=== PATIENT | female | born 1945 | race Caucasian/White ===

== ENCOUNTER 2023-08-30 19:57 | Inpatient (IN) | payer MEDICARE, SELFPAY ==
[2023-08-30] VITALS (8 sets, daily range): BP systolic 104–180; BP diastolic 64–80; PULSE 62–90; RESP 14–24; TEMP 36.6–39.1; O2SAT 90–96; BMI 32.3; BMI 33.4
--- NOTE | 2023-08-30 20:05 | ED.FEVER1 ---
HPI - Fever General Chief Complaint: Fever Stated Complaint: Altered Mental Status Time Seen by Provider: 08/30/23 20:04 History of Present Illness HPI Narrative: patient presents from home for confusion. Son called sqad because of her confusion and weakness. Also has urinary incontinence . No known injury. No complaint of pain Related Data Home Medications Medication Instructions Recorded Confirmed allopurinol 300 mg tablet 300 mg PO DAILY 08/30/23 08/30/23 aspirin 81 mg tablet,delayed 81 mg PO DAILY 08/30/23 08/30/23 release carvedilol 25 mg tablet 25 mg PO BID 08/30/23 08/30/23 cholecalciferol (vitamin D3) 125 125 mcg PO DAILY 08/30/23 08/30/23 mcg (5,000 unit) tablet clopidogrel 75 mg tablet 75 mg PO DAILY 08/30/23 08/30/23 furosemide 40 mg tablet 40 mg PO QAM 08/30/23 08/30/23 insulin glargine 100 unit/mL (3 50 unit subcut DAILY 08/30/23 08/30/23 mL) subcutaneous pen (Basaglar KwikPen U-100 Insulin) oxybutynin chloride 10 mg 10 mg PO DAILY 08/30/23 08/30/23 tablet,extended release 24 hr potassium chloride 10 mEq 10 meq PO DAILY 08/30/23 08/30/23 tablet,extended release rosuvastatin 5 mg tablet 5 mg PO DAILY 08/30/23 08/30/23 gabapentin 300 mg capsule 300 mg PO BID 08/31/23 08/31/23 insulin aspart U-100 100 unit/mL 1 sliding scale dose subcut ACHS 08/31/23 08/31/23 (3 mL) subcutaneous pen (Novolog FlexPen U-100 Insulin aspart) Allergies Allergy/AdvReac Type Severity Reaction Status Date / Time No Known Drug Allergies Allergy Verified 08/30/23 20:05 Review of Systems ROS Status of ROS 10 or more systems reviewed and unremarkable except as noted in history and below PFSH PFSH Social History Highest level of school completed/degree received: don't know Exam Constitutional Vital Signs, click to edit/add: Last Vital Signs Temp 99.0 F 08/31/23 13:28 Pulse 83 08/31/23 16:00 Resp 16 08/31/23 13:28 BP 132/85 08/31/23 13:28 Pulse Ox 92 L 08/31/23 13:28 O2 Del Method Room Air 08/31/23 13:28 Common normals: no apparent distress and oriented x3 HENMT Common normals: normocephalic and head/scalp atraumatic Eye Common normals: EOMs intact bilaterally and conjunctivae normal Respiratory Common normals: normal respiratory effort, no retractions, no use of accessory muscles and clear to auscultation bilaterally Cardio Common normals: regular rate, regular rhythm, S1 normal heart sound and S2 normal heart sound GI Common normals: Normal to inspection, nondistended, normoactive bowel sounds present, soft to palpation and non-tender Extremity Common normals: normal to inspection and full ROM Neuro Common normals: oriented x3, CN's II-XII intact bilaterally, moves all extremities, no focal motor deficits and no sensory deficits noted Psych Appearance: grossly normal Course Vital Signs Vital signs: Vital Signs Temperature 102.3 F H 08/30/23 20:02 Pulse Rate 90 08/30/23 20:02 Respiratory Rate 22 08/30/23 20:02 Blood Pressure 174/71 H 08/30/23 20:02 Pulse Oximetry 96 08/30/23 20:02 Oxygen Delivery Method Room Air 08/30/23 20:02 Temperature 99.0 F 08/31/23 13:28 Pulse Rate 83 08/31/23 16:00 Respiratory Rate 16 08/31/23 13:28 Blood Pressure 132/85 08/31/23 13:28 Pulse Oximetry 92 L 08/31/23 13:28 Oxygen Delivery Method Room Air 08/31/23 13:28 MDM - Fever MDM Narrative Medical decision making narrative: patient presents with fever, confusion and frequent urination. Also very weak. Arrives via Squad. Cooperative. AxOx3 no focal weakness but gen. weakness. No complaint of pain. Labs with evidence of UTI. EKG with noisy baseline. tropinin neg. cultures ordered and patient treated with Rocephin. Discussed with the hospitalist and patient accepted for admission Lab Data Labs: Lab Results 08/30/23 08/30/23 08/30/23 Range/Units 20:20 20:22 20:35 WBC 8.9 (4.0-11.0) 10^3/uL RBC 3.69 L (4.20-5.40) 10^6/uL Hgb 11.2 L (12.0-16.0) g/dL Hct 37.4 (36.0-48.0) % MCV 101.4 H (81.0-99.0) fL MCH 30.4 (26.7-34.0) pg MCHC 29.9 (29.9-35.2) g/dL RDW 15.5 H (11.0-15.0) % Plt Count 232 (150-450) 10^3/uL MPV 11.1 (9.5-13.5) fL Neut % (Auto) 73.0 (43.0-75.0) % Lymph % (Auto) 15.0 L (20.5-60.0) % [place] % (Auto) 10.2 (1.7-12.0) % Eos % (Auto) 0.8 L (0.9-7.0) % Baso % (Auto) 0.3 (0.2-2.0) % Neut # (Auto) 6.5 (1.4-6.5) 10^3/uL Lymph # (Auto) 1.3 (1.2-3.8) 10^3/uL [place] # (Auto) 0.9 H (0.3-0.8) 10^3/uL Eos # (Auto) 0.1 (0.0-0.7) 10^3/uL Baso # (Auto) 0.0 (0.0-0.1) 10^3/uL Abs Immat Gran (auto) 0.06 H (0.00-0.03) 10^3/uL Imm/Tot Granulo (auto) 0.7 H (0.0-0.5) % Sodium 143 (136-145) mmol/L Potassium 3.6 (3.5-5.1) mmol/L Chloride 101 (98-107) mmol/L Carbon Dioxide 30.2 (21.0-32.0) mmol/L Anion Gap 15.4 BUN 33.0 H (7.0-18.0) mg/dL Creatinine 2.33 H (0.55-1.02) mg/dL Est GFR ( Amer) 24 L (>=60) Est GFR (Non-Af Amer) 20 L (>=60) BUN/Creatinine Ratio 14.2 Glucose 146 H (74-106) mg/dL Lactate 1.1 (0.4-2.0) mmol/L Calcium 9.5 (8.5-10.1) mg/dL Total Bilirubin 0.3 (0.2-1.0) mg/dL AST 10 L (15-37) U/L ALT 7 L (14-59) U/L Alkaline Phosphatase 63 (46-116) U/L Troponin I High Sens 43.5 (4.0-51.3) pg/mL Total Protein 7.9 (6.4-8.2) g/dL Albumin 2.7 L (3.4-5.0) g/dL Globulin 5.2 g/dL Albumin/Globulin Ratio 0.5 Lipase 13.0 L (16.0-77.0) U/L Procalcitonin 0.51 H (0.00-0.50) ng/mL Urine Color Lt. yellow (YELLOW) Urine Clarity Clear (CLEAR) Urine pH 6.5 (5.0-9.0) Ur Specific [place] 1.010 (1.005-1.025) Urine Protein 100 A (NEG/TRACE) mg/dL Urine Glucose (UA) Negative (NEGATIVE) mg/dL Urine Ketones Negative (NEGATIVE) mg/dL Urine Occult Blood Trace-i (NEGATIVE) Urine Nitrite Negative (NEGATIVE) Urine Bilirubin Negative (NEGATIVE) Urine Urobilinogen 0.2 (0.2-1.0) EU/dL Ur Leukocyte Esterase Large A (NEGATIVE) Urine RBC 0-2 (0-2) #/HPF Urine WBC 10-20 A (NONE SEEN) #/HPF Ur Squamous Epith Cells Rare (NONE/RARE) #/LPF Urine Crystals None seen (None Seen) #/HPF Urine Bacteria Small A (NONE SEEN) #/HPF Urine Casts None seen (NONE SEEN) #/LPF Urine Mucus None seen (NONE SEEN) Ur Culture Indicated? Yes POC Glucose 144 H (74-106) mg/dL Discharge Plan Discharge Chief Complaint: Fever Clinical Impression: Generalized weakness, Acute UTI Patient Disposition: Admitted As Inpatient Time of Disposition Decision: 21:33 Condition: Good Discharge Date/Time: 08/30/23 22:02
--- NOTE | 2023-08-30 20:06 | XR_ITS ---
The [address] [address] Patient Name: ESTHER TATUM MRN: [id number] date: 1945 Sex: F Assigned Patient Location: ER Current Patient Location: ER Accession/Order Number: [id number] Exam Date: 08/30/2023 20:35 Report Date: 08/30/2023 21:38 At the request of: JOANNE CARREON Procedure: XR chest 1V XR chest 1V 08/30/2023 8:35 PM EST CLINICAL INDICATION: Confusion COMPARISON: None. TECHNIQUE: Portable semiupright AP view of the chest. FINDINGS: Median sternotomy wires and mediastinal surgical clips are noted. Cardiac silhouette appears mildly enlarged. There is interstitial prominence. Low lung volumes are noted. No focal parenchymal opacities. No pneumothorax or pleural effusion. No displaced rib fractures. Osseous structures demonstrate degenerative changes. Soft tissues are grossly normal. XR/XR chest 1V IMPRESSION: Low lung volumes. Interstitial prominence which may be related to mild interstitial edema or atypical infectious etiology. Electronically authenticated by: ISAAC COREY Date: 08/30/2023 21:38
[2023-08-30 20:22] LABS: Glucometer 144 mg/dL (74-106)
[2023-08-30 20:51] LABS: Basophils Percent Auto 0.3 % (0.2-2.0); Eosinophils Absolute Auto 0.1 10^3/uL (0.0-0.7); Eosinophils Percent Auto 0.8 % (0.9-7.0); Hematocrit 37.4 % (36.0-48.0); Hemoglobin 11.2 g/dL (12.0-16.0); Immature Granulocytes Abs Auto 0.06 10^3/uL (0.00-0.03); Immature Granulocytes Pct Auto 0.7 % (0.0-0.5); Lymphocytes Absolute Auto 1.3 10^3/uL (1.2-3.8); Mean Corpuscular HGB Conc 29.9 g/dL (29.9-35.2); Mean Corpuscular Hemoglobin 30.4 pg (26.7-34.0); Mean Corpuscular Volume 101.4 fL (81.0-99.0); Mean Platelet Volume 11.1 fL (9.5-13.5); Monocytes Absolute Auto 0.9 10^3/uL (0.3-0.8); Monocytes Percent Auto 10.2 % (1.7-12.0); Neutrophils Absolute Auto 6.5 10^3/uL (1.4-6.5); Platelet Count 232 10^3/uL (150-450); Red Blood Count 3.69 10^6/uL (4.20-5.40); Red Cell Distribution Width 15.5 % (11.0-15.0); White Blood Count 8.9 10^3/uL (4.0-11.0)
[2023-08-30] MEDS: 0.9 % SODIUM CHLORIDE 1,000 ML 999 ML IV (20:51)
[2023-08-30] MEDS: ACETAMINOPHEN 500 MG TABLET 1000 MG PO (20:52)
[2023-08-30 20:56] LABS: Bilirubin Urine NEGATIVE (NEGATIVE); Blood Urine TRACE-I (NEGATIVE); Clarity Urine CLEAR (CLEAR); Color Urine LT. YELLOW (YELLOW); Glucose Urine UA NEGATIVE (NEGATIVE); Ketones Urine NEGATIVE (NEGATIVE); Leukocyte Esterase Urine LARGE (NEGATIVE); Nitrite Urine NEGATIVE (NEGATIVE); Protein Urine 100 mg/dL (NEG/TRACE); Urobilinogen Urine 0.2 EU/dL (0.2-1.0); pH Urine 6.5 (5.0-9.0)
[2023-08-30 21:01] LABS: Urine Microscopic Indicated YES
[2023-08-30 21:03] LABS: Bacteria Urine SMALL #/HPF (NONE SEEN); Crystals Seen? None Seen #/HPF (None Seen); Mucus Urine NONE SEEN (NONE SEEN); RBC Urine 0-2 #/HPF (0-2); Squamous Epithelial Cell Urine RARE #/LPF (NONE/RARE)
[2023-08-30 21:04] LABS: Cast Seen? NONE SEEN #/LPF (NONE SEEN); Urine Culture Indicated YES
[2023-08-30 21:06] LABS: Lactate/Lactic Acid 1.1 mmol/L (0.4-2.0)
[2023-08-30 21:07] LABS: Alanine Aminotransferase 7 U/L (14-59); Albumin Globulin Ratio 0.5; Albumin Level 2.7 g/dL (3.4-5.0); Alkaline Phosphatase 63 U/L (46-116); Anion Gap 15.4; Aspartate Amino Transferase 10 U/L (15-37); BUN Creatinine Ratio 14.2; Bilirubin Total 0.3 mg/dL (0.2-1.0); Calcium 9.5 mg/dL (8.5-10.1); Carbon Dioxide 30.2 mmol/L (21.0-32.0); Chloride 101 mmol/L (98-107); Estimated GFR (African America 24 (>=60); Estimated GFR (Non-African Ame 20 (>=60); Globulin 5.2 g/dL; Glucose 146 mg/dL (74-106); Potassium 3.6 mmol/L (3.5-5.1); Sodium 143 mmol/L (136-145); Total Protein 7.9 g/dL (6.4-8.2); Troponin I High Sensitivity 43.5 pg/mL (4.0-51.3)
[2023-08-30 21:23] LABS: PROCALCITONIN 0.51 ng/mL (0.00-0.50)
[2023-08-30] MEDS: CEFTRIAXONE 1,000 MG in 0.9 % SODIUM CHLORIDE 50 ML 100 MG IV (21:28)
[2023-08-30 22:56] LABS: Troponin I High Sensitivity 47.2 pg/mL (4.0-51.3)
[2023-08-31] VITALS (13 sets, daily range): BP systolic 132–185; BP diastolic 73–85; PULSE 67–83; RESP 16; TEMP 36.6–37.2; O2SAT 90–93
[2023-08-31] MEDS: 0.9 % SODIUM CHLORIDE 1,000 ML 100 ML IV ×2 (03:48→14:32)
--- NOTE | 2023-08-31 03:53 | ECG_ITS ---
The [facility] Test Date: 2023-08-30 Pat Name: ESTHER TATUM Department: Room: [facility] Gender: Female [employer]: : 1945 Requested By: MONISHA ARMENTA Order Number: [id number] Reading MD: WADE GALVEZ Measurements Intervals [place] Rate: 89 P: -30 TX: 162 QRS: -10 QRSD: 112 T: 165 QT: 374 QTc: 421 Interpretive Statements 1100 Sinus rhythm 3132 Anterior myocardial infarction, probably old ST elevation infeior leads, Q waves inferior leads, consider acute on remote myocardial infarction 5234 Left ventricular hypertrophy with repolarization abnormality 6220 Possible left atrial enlargement 9150 abnormal ECG No previous ECG available for comparison Electronically Signed On 08-31-2023 7:42:46 EST by WADE GALVEZ
[2023-08-31 06:07] LABS: Basophils Percent Auto 0.5 % (0.2-2.0); Eosinophils Absolute Auto 0.1 10^3/uL (0.0-0.7); Hematocrit 35.2 % (36.0-48.0); Hemoglobin 10.6 g/dL (12.0-16.0); Immature Granulocytes Abs Auto 0.04 10^3/uL (0.00-0.03); Immature Granulocytes Pct Auto 0.5 % (0.0-0.5); Lymphocytes Absolute Auto 1.6 10^3/uL (1.2-3.8); Lymphocytes Percent Auto 19.9 % (20.5-60.0); Mean Corpuscular HGB Conc 30.1 g/dL (29.9-35.2); Mean Corpuscular Hemoglobin 30.6 pg (26.7-34.0); Mean Corpuscular Volume 101.7 fL (81.0-99.0); Mean Platelet Volume 10.8 fL (9.5-13.5); Monocytes Absolute Auto 0.9 10^3/uL (0.3-0.8); Monocytes Percent Auto 10.9 % (1.7-12.0); Neutrophils Absolute Auto 5.3 10^3/uL (1.4-6.5); Neutrophils Percent Auto 67.2 % (43.0-75.0); Platelet Count 211 10^3/uL (150-450); Red Blood Count 3.46 10^6/uL (4.20-5.40); Red Cell Distribution Width 15.5 % (11.0-15.0); White Blood Count 7.9 10^3/uL (4.0-11.0)
[2023-08-31 06:31] LABS: Alanine Aminotransferase <6 U/L (14-59); Albumin Globulin Ratio 0.5; Albumin Level 2.4 g/dL (3.4-5.0); Alkaline Phosphatase 57 U/L (46-116); Anion Gap 14.9; Aspartate Amino Transferase 7 U/L (15-37); BUN Creatinine Ratio 14.5; Bilirubin Total 0.2 mg/dL (0.2-1.0); Calcium 9.3 mg/dL (8.5-10.1); Carbon Dioxide 26.3 mmol/L (21.0-32.0); Chloride 104 mmol/L (98-107); Estimated GFR (African America 25 (>=60); Estimated GFR (Non-African Ame 21 (>=60); Globulin 5.1 g/dL; Glucose 136 mg/dL (74-106); Potassium 3.2 mmol/L (3.5-5.1); Sodium 142 mmol/L (136-145); Total Protein 7.5 g/dL (6.4-8.2)
[2023-08-31 11:14] LABS: Glucometer 240 mg/dL (74-106)
[2023-08-31] MEDS: GABAPENTIN 300 MG CAPSULE PO ×2 (11:33→21:14)
[2023-08-31] MEDS: CARVEDILOL 25 MG TABLET PO ×2 (11:33→21:14)
[2023-08-31] MEDS: ASPIRIN 81 MG TABLET.DR PO (11:33)
[2023-08-31] MEDS: POTASSIUM CHLORIDE 10 MEQ ER TABLET PO (11:33)
[2023-08-31] MEDS: ALLOPURINOL 300 MG TABLET PO (11:33)
[2023-08-31] MEDS: OXYBUTYNIN CHLORIDE 5 MG TAB XL 10 MG PO (11:33)
[2023-08-31] MEDS: CHOLECALCIFEROL (VITAMIN D3) 125 MCG/5000 UNIT TABLET PO (11:33)
[2023-08-31] MEDS: CLOPIDOGREL BISULFATE 75 MG TABLET PO (11:33)
[2023-08-31] MEDS: FUROSEMIDE 40 MG TABLET PO (11:33)
[2023-08-31] MEDS: INSULIN ASPART 300 UNIT/3 ML PEN SUBQ ×2 (11:35→15:38)
--- NOTE | 2023-08-31 12:04 | P.HP_ITS ---
H&P: HPI History of Present Illness Chief complaint: Altered Mental Status, UTI Narrative: 78 y/o female to ER with altered mental status and fever. Patient was noticed to have increased weakness and confusion. Developed urinary incontinence and worsening confusion and called EMS. In ER temp 102.3. WBC normal but labs showed SUSAN. UA with UTI and admitted. Started IV fluids and Rocephin. Patient improved overnight. states back to baseline and not confused. Continues to have weakness. Review of Systems ROS Constitutional Reports: fever, chills and fatigue Cardiovascular Denies: chest pain, palpitations, edema or lightheadedness Respiratory Denies: shortness of breath, cough or wheezing Gastrointestinal Denies: abdominal pain, nausea, vomiting or diarrhea Genitourinary Denies: painful urination PFSH PFSH Social History Highest level of school completed/degree received: don't know Meds Home Medications and Allergies Home Medications Medication Instructions Recorded Confirmed Type allopurinol 300 mg tablet 300 mg PO DAILY 08/30/23 08/30/23 History aspirin 81 mg tablet,delayed 81 mg PO DAILY 08/30/23 08/30/23 History release carvedilol 25 mg tablet 25 mg PO BID 08/30/23 08/30/23 History cholecalciferol (vitamin D3) 125 125 mcg PO DAILY 08/30/23 08/30/23 History mcg (5,000 unit) tablet clopidogrel 75 mg tablet 75 mg PO DAILY 08/30/23 08/30/23 History furosemide 40 mg tablet 40 mg PO QAM 08/30/23 08/30/23 History insulin glargine 100 unit/mL (3 50 unit subcut DAILY 08/30/23 08/30/23 History mL) subcutaneous pen (Basaglar KwikPen U-100 Insulin) oxybutynin chloride 10 mg 10 mg PO DAILY 08/30/23 08/30/23 History tablet,extended release 24 hr potassium chloride 10 mEq 10 meq PO DAILY 08/30/23 08/30/23 History tablet,extended release rosuvastatin 5 mg tablet 5 mg PO DAILY 08/30/23 08/30/23 History gabapentin 300 mg capsule 300 mg PO BID 08/31/23 08/31/23 History insulin aspart U-100 100 unit/mL 1 sliding scale dose subcut ACHS 08/31/23 08/31/23 History (3 mL) subcutaneous pen (Novolog FlexPen U-100 Insulin aspart) Allergies Allergy/AdvReac Type Severity Reaction Status Date / Time No Known Drug Allergies Allergy Verified 08/30/23 20:05 Exam Constitutional Vital Signs, click to edit/add: Last Vital Signs Temp 97.9 F 08/31/23 04:59 Pulse 79 08/31/23 10:00 Resp 16 08/31/23 08:00 BP 185/82 H 08/31/23 04:59 Pulse Ox 90 L 08/31/23 04:59 O2 Del Method Room Air 08/31/23 04:59 Documenting provider has reviewed patient's vital signs: yes Common normals: no apparent distress, oriented x3 and alert HENMT Common normals: normocephalic Eye Common normals: PERRL and EOMs intact bilaterally Respiratory Common normals: normal respiratory effort and clear to auscultation bilaterally Cardio Common normals: regular rate, regular rhythm, no gallops, no murmurs and no rub GI Common normals: Normal to inspection, nondistended, normoactive bowel sounds present and non-tender Extremity Common normals: no pedal edema Results Labs Labs: Short CBC 08/30/23 08/31/23 Range/Units 20:20 05:35 WBC 8.9 7.9 (4.0-11.0) 10^3/uL Hgb 11.2 L 10.6 L (12.0-16.0) g/dL Hct 37.4 35.2 L (36.0-48.0) % Plt Count 232 211 (150-450) 10^3/uL BMP 08/30/23 08/31/23 20:20 05:35 Sodium 143 142 Potassium 3.6 3.2 L Chloride 101 104 Carbon Dioxide 30.2 26.3 BUN 33.0 H 33.0 H Creatinine 2.33 H 2.28 H Glucose 146 H 136 H Calcium 9.5 9.3 Liver Function 08/30/23 08/31/23 Range/Units 20:20 05:35 Total Bilirubin 0.3 0.2 (0.2-1.0) mg/dL AST 10 L 7 L (15-37) U/L ALT 7 L <6 L (14-59) U/L Alkaline Phosphatase 63 57 (46-116) U/L Albumin 2.7 L 2.4 L (3.4-5.0) g/dL Urine 08/30/23 Range/Units 20:20 Urine Color Lt. yellow (YELLOW) Urine Clarity Clear (CLEAR) Urine pH 6.5 (5.0-9.0) Ur Specific [place] 1.010 (1.005-1.025) Urine Protein 100 A (NEG/TRACE) mg/dL Urine Glucose (UA) Negative (NEGATIVE) mg/dL Assessment and Plan Assessment and Plan (1) Acute UTI: (2) SUSAN (acute kidney injury): (3) Generalized weakness: (4) Diabetes: (5) HTN (hypertension): (6) CAD (coronary artery disease): (7) Peripheral arterial disease: (8) Stage 3b chronic kidney disease (CKD): Plan Presented with fever and altered mental status and found UTI. Continue Rocephin while awaiting culture results. Continue IV fluids for SUSAN. Resume home medication. Start PT/OT for weakness. Plan for at least a 2 midnight stay for inpatient medically necessary services. Urinary Catheter Management Urinary Catheter Management 2-way Urethral: Cath placed during this visit: yes Urethral indwelling: No Insertion date: 08/30/23 Insertion time: 20:17
[2023-08-31 15:38] LABS: Glucometer 180 mg/dL (74-106)
[2023-08-31] MEDS: CEFTRIAXONE 1,000 MG in 0.9 % SODIUM CHLORIDE 50 ML 100 MG IV (21:11)
[2023-08-31 21:14] LABS: Glucometer 139 mg/dL (74-106)
[2023-08-31] MEDS: ATORVASTATIN CALCIUM 20 MG TABLET PO (21:14)
[2023-08-31] MEDS: ACETAMINOPHEN 325 MG TABLET 650 MG PO (21:14)
[2023-08-31] MEDS: INSULIN DETEMIR 300 UNIT/3 ML INSULN.PEN 50 UNIT SQ (21:18)
[2023-09-01] VITALS (9 sets, daily range): BP systolic 126–156; BP diastolic 60–82; PULSE 62–78; RESP 16; TEMP 36.5–36.7; O2SAT 93
[2023-09-01] MEDS: 0.9 % SODIUM CHLORIDE 1,000 ML 100 ML IV (01:24)
[2023-09-01 03:01] LABS: Glucometer 146 mg/dL (74-106)
[2023-09-01 06:03] LABS: Basophils Percent Auto 0.5 % (0.2-2.0); Eosinophils Absolute Auto 0.1 10^3/uL (0.0-0.7); Eosinophils Percent Auto 1.5 % (0.9-7.0); Hematocrit 34.5 % (36.0-48.0); Hemoglobin 10.2 g/dL (12.0-16.0); Immature Granulocytes Abs Auto 0.03 10^3/uL (0.00-0.03); Immature Granulocytes Pct Auto 0.4 % (0.0-0.5); Lymphocytes Absolute Auto 1.8 10^3/uL (1.2-3.8); Lymphocytes Percent Auto 24.6 % (20.5-60.0); Mean Corpuscular HGB Conc 29.6 g/dL (29.9-35.2); Mean Corpuscular Hemoglobin 30.3 pg (26.7-34.0); Mean Corpuscular Volume 102.4 fL (81.0-99.0); Mean Platelet Volume 10.9 fL (9.5-13.5); Monocytes Absolute Auto 0.9 10^3/uL (0.3-0.8); Monocytes Percent Auto 12.3 % (1.7-12.0); Neutrophils Absolute Auto 4.6 10^3/uL (1.4-6.5); Neutrophils Percent Auto 60.7 % (43.0-75.0); Platelet Count 212 10^3/uL (150-450); Red Blood Count 3.37 10^6/uL (4.20-5.40); Red Cell Distribution Width 15.7 % (11.0-15.0); White Blood Count 7.5 10^3/uL (4.0-11.0)
[2023-09-01 06:25] LABS: Alanine Aminotransferase <6 U/L (14-59); Albumin Globulin Ratio 0.5; Albumin Level 2.1 g/dL (3.4-5.0); Alkaline Phosphatase 47 U/L (46-116); Anion Gap 14.3; Aspartate Amino Transferase 10 U/L (15-37); BUN Creatinine Ratio 13.8; Bilirubin Total 0.2 mg/dL (0.2-1.0); Carbon Dioxide 25.1 mmol/L (21.0-32.0); Chloride 104 mmol/L (98-107); Estimated GFR (African America 28 (>=60); Estimated GFR (Non-African Ame 23 (>=60); Globulin 4.6 g/dL; Glucose 111 mg/dL (74-106); Potassium 3.4 mmol/L (3.5-5.1); Sodium 140 mmol/L (136-145); Total Protein 6.7 g/dL (6.4-8.2)
[2023-09-01 07:28] LABS: Glucometer 102 mg/dL (74-106)
--- OUTSIDE RECORDS SUMMARY | 2023-09-01 09:03 | XMS_ITS | CCD ---
Author Name Unknown Address [address] [place] [address] Organization [facility] Care Team Providers Care Prepress Stripper Name Role Phone BLAKE KUO Unavailable Unavailable ROSA, LI Unavailable Unavailable BLAKE KUO Unavailable Unavailable ROSA, LI Unavailable Unavailable PHYSICIAN, DEFAULT Unavailable Unavailable PHYSICIAN, DEFAULT Unavailable Unavailable Rosa, Li Conley Unavailable Unavailable Unavailable ROSA, DR LI oCnley Primary Care Unavailable LEE, DR LI Conley Admitting Unavailable LEE, DR LI Conley Attending Unavailable LEE, DR LI Conley Consulting Unavailable West, DR Ren Consulting Unavailable LEE, DR LI Conley Primary Care Unavailable LEE, DR LI Conley Admitting Unavailable LEE, DR LI Conley Attending Unavailable LEE, DR LI Conley Primary Care Unavailable LEE, DR LI Conley Admitting Unavailable LEE, DR LI Conley Attending Unavailable LEE, DR LI Conley Primary Care Unavailable MCGUINN, DR MARKHAM Admitting Unavailable MCGUINN, DR MARKHAM Attending Unavailable MCGUINN, DR MARKHAM Consulting Unavailable LEE, DR LI Conley Consulting Unavailable LEE, DR LI Conley Primary Care Unavailable LEE, DR LI Conley Admitting Unavailable LEE, DR LI Conley Attending Unavailable McGuinn IITom Referring Unav ailable Li Lee Primary Care Unavailable McGuinn Tom GUILLERMO Attending Unav ailable McGuinn Tom GUILLERMO Referring Unav ailable Lee, Li Miller Primary Care Unavailable McGuinTom foss II Attending Unav ailable MD Li Lee Primary Care Provider [phone] MD Ross Colmenares Attending Provider Ross Colmenares Unavailable Maxine Llanes Primary Care Physician Da Lozano II Attending Unavaildarcy e Da Lozano II Admitting Unavaildarcy e Li Lee Primary Care Unavailable Ross Colmenares Admitting Unavailable Li Lee Primary Care Unavailable Ross Colmenares Attending Unavailable Da Lozano II Unavailable Shraddha, SEISMOGRAPH OBSERVER Maxine L Attending Unavailable Shraddha, SEISMOGRAPH OBSERVER Maxine L Attending Unavailable Shraddha, SEISMOGRAPH OBSERVER Maxine L Attending Unavailable Shraddha, SEISMOGRAPH OBSERVER Maxine L Attending Unavailable Shraddha, SEISMOGRAPH OBSERVER Maxine L Attending Unavailable Shraddha, SEISMOGRAPH OBSERVER Maxine L Attending Unavailable Shraddha, SEISMOGRAPH OBSERVER Maxine L Attending Unavailable Shraddha, SEISMOGRAPH OBSERVER Maxine L Attending Unavailable Shraddha, SEISMOGRAPH OBSERVER Maxine L Admitting Unavailable Shraddha, SEISMOGRAPH OBSERVER Maxine L Attending Unavailable Shraddha, SEISMOGRAPH OBSERVER Maxine L Admitting Unavailable Shraddha, SEISMOGRAPH OBSERVER Maxine L Attending Unavailable Shraddha, SEISMOGRAPH OBSERVER Maxine L Admitting Unavailable Shraddha, SEISMOGRAPH OBSERVER Maxine L Attending Unavailable Shraddha, SEISMOGRAPH OBSERVER Maxine L Attending Unavailable Allergies Allergy Classification Reported Allergen(s) Allergy Type Date of Onset Reaction(s) Facility (13 sources) Angiotensin Converting Enzyme (Williams) Inhibitors; Translations: [WILLIAMS Inhibitors] Allergy to drug (finding) Hyperkalemia, Other [place] [address] DO Work Phone: (15 sources) atorvastatin; Translations: [atorvastatin] Drug Allergy Myalgia [facility] (13 sources) Hmg-Coa Reductase Inhibitors (Statins); Translations: [Statins] Allergy to drug (finding) Myalgia [place] [address] DO Work Phone: (5 sources) rosuvastatin; Translations: [rosuvastatin] Drug Allergy Myalgia [place] [address] DO Work Phone: (13 sources) Spironolactone; Translations: [spironolactone] Drug Allergy Hyperkalemia, Other [place] [address] DO Work Phone: (1 source) Iodine (And Iodine Containting Drugs) Drug allergy (disorder) [facility] (1 source) Pravastatin Drug Allergy [facility] (2 sources) Simvastatin Drug Allergy [facility] (1 source) Sulfonamides (Antibiotic) Drug allergy (disorder) [facility] (6 sources) Adhesive Tape Drug allergy rash [employer] Other (2 sources) Pravastatin; Translations: [pravastatin] Drug Allergy Unknown [facility] Medications Current Medications Medication Drug Class(es) Dates Sig (Normalized) Sig (Original) acetaminophen 325 mg oral tablet (7 sources) Start: 07-20-2018 take 2 tablets by mouth once daily at bedtime Acetaminophen (Tylenol) 325 mg Tablet Active 650 MG PO Daily at bedtime July 20, 2018 1:00am Start: 07-16-2017 End: 09-11-2017 Acetaminophen (Tylenol Arthr itis Pain) 650 mg Tablet Extended Release Discontinued 1300 MG PO Every evening July 16, 2017 1:00am September 11, 2017 8:44am take 1 tablet by dayo th every four to six hours as needed Acetaminophen 500 MG Oral Tablet TAKE 1 TABLET EVERY 4 TO 6 HOURS NEEDED. Quantity: 0 Refills: 0 Ordered: 02-Nov-2021 DO Active allopurinol 300 mg oral tablet (17 sources) Xanthine Oxidase Inhibitor Start: 05-14-2017 take 1 tablet by mouth once daily allopurinol 300 mg Tab 300 mg = 1 tab(s), Oral, Daily, # 90 tab(s), Refills(s) 0, Pharmacy: [facility], 140.6, cm, 02/10/23 11:29:00 EDT, Height/Length Dosing, 79.2, kg, 02/10/23 11:29:00 EDT, Weight Dosing Start Date: 02/10/23 Status: Ordered ascorbic acid 500 mg extended release oral capsule (4 sources) Vitamin C Start: 09-11-2017 take 1 capsule by mouth once daily Ascorbic Acid (Vitamin C) (Vitamin C) 500 mg Capsule, Extended Release Active 500 MG PO Daily September 11, 2017 1:00am Start: 07-16-2017 End: 09-11-2017 take 1 tablet by mouth once daily Ascorbic Acid (Vitamin C) (Vitamin C) 1,000 mg Tablet Discontinued 1000 MG PO Daily July 16, 2017 1:00am September 11, 2017 8:53am Start: 05-14-2017 End: 07-16-2017 take 1 tablet by mouth once daily Ascorbic Acid (Vitamin C) (Vitamin C) 500 mg Tablet Discontinued 500 MG PO Daily May 14, 2017 12:00am July 16, 2017 9:40am Vitamin C 500 MG Orally Active aspirin 81 mg delayed release oral tablet (20 sources) Platelet Aggregation Inhibitor, Nonsteroidal Anti-inflammatory Drug Start: 02-05-2023 aspirin 81 mg Ora l EC Tab Oral, Refills(s) 0 Start Date: 02/05/23 Status: Ordered Start: 05-14-2017 take 1 tablet by dayo once daily Aspirin Low Dose 81 MG Oral Tablet Delayed Release TAKE 1 TABLET Daily Quantity: 90 Refills: 3 Ordered: 08-Aug-2022 Tom Ruano MD Start : 10-Sep-2021 Active Fill at patients request take 1 tablet by dayo every twenty-four hours Aspirin 81 MG 1 tablet Orally Once a day Active Aspirin 81 MG Or al Tablet Delayed Release Quantity: 0 Refills: 0 Ordered: 19-Dec-2016 DO Active carvedilol 25 mg oral tablet (20 sources) alpha-Adrenergic Miquel, beta-Adrenergic Miquel Start: 07-22-2018 carvedilol 25 mg Tab Oral, Refills(s) 0 Start Date: 02/05/23 Status: Ordered Start: 06-23-2017 End: 07-22-2018 take 2 tablets by mouth twice daily Carvedilol (Coreg) 12.5 mg Tablet Discontinued 25 MG PO Twice daily June 23, 2017 1:00am July 22, 2018 1:13pm cholecalciferol 0.025 mg oral capsule (5 sources) Vitamin D Start: 02-10-2023 take 1 capsule by mouth once daily cholecalciferol 1000 intl units oral capsule 25 mcg = 1 cap(s), Oral, Daily, Oral, # 90 cap(s), Refills(s) 1, Pharmacy: [facility], 140.6, cm, 02/10/23 11:29:00 EDT, Height/Length Dosing, 79.2, kg, 02/10/23 11:29:00 EDT, Weight Dosing Start Date: 02/10/23 Status: Ordered Start: 09-11-2017 take 1 capsule by mo [facility] once daily Cholecalciferol (Vitamin D3) (Vitamin D3) 1,000 unit Capsule Active 1000 UNIT PO Daily September 11, 2017 1:00am Start: 07-16-2017 End: 09-11-2017 Cholecalciferol (Vitamin D3) (Vitamin D3) 5,000 unit Tablet Discontinued 5000 MG PO Daily July 16, 2017 1:00am September 11, 2017 8:54am Start: 05-14-2017 End: 07-16-2017 take 1 capsule by mouth once daily Cholecalciferol (Vitamin D3) (Vitamin D3) 1,000 unit Capsule Discontinued 1000 UNIT PO Daily 0 June 25, 2017 11:05am July 16, 2017 9:38am clopidogrel 75 mg oral tablet (20 sources) [id number] Platelet Inhibitor Start: 05-14-2017 Plavix 75 mg Tab Oral, Refills(s) 0 Start Date: 02/05/23 Status: Ordered dimenhyDRINATE (6 sources) Dramamine Active docusate sodium 100 mg oral capsule (17 sources) Start: 06-23-2017 take 1 capsule by mouth twice daily Docusate Sodium (Colace) 100 mg Capsule Active 100 MG PO Twice daily June 23, 2017 1:00am take 1 capsule by mo [facility] every twenty-four hours Colace 100 MG 1 capsule as needed Orally Once a day Active take 1 tablet by mouth once sayda y Docusate Sodium 100 MG Oral Tablet TAKE 1 TABLET DAILY DIRECTED. Quantity: 0 Refills: 0 Ordered: 19-Dec-2016 DO Active furosemide 40 mg oral tablet (19 sources) Loop Diuretic Start: 10-11-2021 furosemide 40 mg Tab 30 tab(s), Refills(s) 0 Start Date: 02/05/23 Status: Ordered Start: 05-14-2017 take 1 tablet by dayo th once daily Furosemide (Lasix) 20 mg Tablet Active 20 MG PO Daily May 14, 2017 12:00am take 1 tablet by dayo th twice daily Furosemide 40 MG Oral Tablet Take 1 tablet twice daily Quantity: 0 Refills: 0 Ordered: 19-Dec-2016 DO Active gabapentin 300 mg oral capsule (20 sources) Anti-epileptic Agent Start: 02-05-2023 gabapenti n 300 mg Cap Oral, Refills(s) 0 Start Date: 02/05/23 Status: Ordered Start: 06-15-2021 take 1 capsule by mo [facility] twice daily Gabapentin 300 MG Oral Capsule TAKE ONE CAPSULE BY MOUTH TWICE A DAY Quantity: 60 Refills: 0 Ordered: 12-Dec-2021 DO Start : 15-Jun-2021 Active Start: 09-11-2017 take 300 mg by mouth twice daily Gabapentin Active 300 MG PO Twice daily September 11, 2017 1:00am Start: 06-25-2017 End: 09-11-2017 take 300 mg by mouth twice daily Gabapentin Discontinued 300 MG PO Twice daily 60 30 June 25, 2017 1:00am September 11, 2017 8:48am Start: 05-14-2017 End: 06-25-2017 take 200 mg by mouth twice daily Gabapentin Discontinued 200 MG PO Twice daily May 14, 2017 12:00am June 25, 2017 11:51am Start: 05-14-2017 End: 06-25-2017 take 300 mg by mouth once daily Gabapentin Discontinue d 300 MG PO Daily May 14, 2017 12:00am June 25, 2017 11:51am take 1 capsule by mo ut every twenty-four hours Gabapentin 300 MG 1 capsule before bedtime Orally Once a day Active Gabapentin 100 M G TABS TAKE 1 TABLET 3 TIMES DAILY. Quantity: 0 Refills: 0 Ordered: 19-Dec-2016 DO Active insulin aspart 100 units/mL injectable solution (1 source) Start: 02-05-2023 insulin aspart 100 units/mL injectable solution Subcutaneous, Refills(s) 0 Start Date: 02/05/23 Status: Ordered 3 ml insulin glargine 100 unt/ml pen injector (15 sources) Insulin Analog Start: 02-10-2023 Basaglar KwikP en 100 units/mL subcutaneous solution 50 unit(s), SubCutaneous, Daily, # 15 mL, Refills(s) 2, [facility] [id number], 140.6, cm, 02/10/23 11:29:00 EDT, Height/Length Dosing, 79.2, kg, 02/10/23 11:29:00 EDT, Weight Dosing Start Date: 02/10/23 Status: Ordered Start: 02-07-2023 Basaglar KwikP en 100 units/mL subcutaneous solution See Instructions, 50 units daily, # 15 mL, Refills(s) 0, Pharmacy: [place] [id number] Start Date: 02/07/23 Status: Ordered Start: 01-31-2021 Basaglar KwikP en 100 UNIT/ML Subcutaneous Solution Pen-injector INJECT 50 UNITS AT BEDTIME Quantity: 15 Refills: 0 Ordered: 12-Dec-2021 DO Start : 31-Jan-2021 Active Start: 09-11-2017 Insulin Glargi ne (Basaglar Kwikpen U-100 Insulin) 100 unit/mL (3 mL) Insulin Pen Active 42 UNIT SUBCUT Every evening September 11, 2017 1:00am Start: 05-14-2017 End: 09-11-2017 inject 40 [IU] by subcutaneous injection once daily at bedtime Insulin Glargine (Lantus U-100 Insulin) 100 unit/mL solution Discontinued 40 UNIT SUBCUT Daily at bedtime July 16, 2017 9:40am September 11, 2017 9:05am Basaglar KwikPen 100 UNIT/ML Subcutaneous Active losartan potassium 25 mg oral tablet (1 source) Angiotensin 2 Receptor Miquel Start: 07-20-2018 take 25 mg by mouth once daily at bedtime Losartan Active 25 MG PO Daily at bedtime July 20, 2018 1:00am nitroglycerin 0.4 mg sublingual tablet (1 source) Nitrate Vasodilator Start: 06-23-2017 Nitroglycerin (Nitrostat) 0.4 mg Tablet, Sublingual Active 0.4 MG SUBLINGUAL Q5M June 23, 2017 1:00am 24 hr oxybutynin chloride 10 mg extended release oral tablet (16 sources) Cholinergic Muscarinic Antagonist Start: 02-10-2023 take 1 tablet by mouth once daily oxybutynin 10 mg ER Tab 10 mg = 1 tab(s), Oral, Daily, # 90 tab(s), Refills(s) 0, Pharmacy: [facility], 140.6, cm, 02/10/23 11:29:00 EDT, Height/Length Dosing, 79.2, kg, 02/10/23 11:29:00 EDT, Weight Dosing Start Date: 02/10/23 Status: Ordered Start: 02-05-2023 oxybutynin 5 m g ER Tab 30 tab(s), Refills(s) 0 Start Date: 02/05/23 Status: Ordered Start: 10-15-2021 take 1 tablet by dayo th every twenty-four hours in the morning Oxybutynin Chloride ER 5 MG Oral Tablet Extended Release 24 Hour TAKE ONE TABLET BY MOUTH IN THE MORNING Quantity: 37 Refills: 0 Ordered: 15-Oct-2021 DO Start : 15-Oct-2021 Active take 1 tablet by dayo th every twelve hours oxyBUTYnin Chloride 5 MG 1 tablet Orally Twice a day Active potassium chloride 10 meq or al tablet (10 sources) Start: 02-05-2023 potassium chlo ride 10 mEq ER Tab Oral, Refills(s) 0 Start Date: 02/05/23 Status: Ordered Start: 12-12-2021 Potassium Chlo ride ER 10 MEQ Oral Tablet Extended Release Quantity: 30 Refills: 0 Ordered: 12-Dec-2021 DO Start : 12-Dec-2021 Active Start: 05-14-2017 End: 06-25-2017 take 10 mEq by mouth once daily Potassium Chloride Dis continued 10 MEQ PO Daily May 14, 2017 12:00am June 25, 2017 11:05am take 1 tablet by dayo th once daily Potassium Chloride ER 20 MEQ Oral Tablet Extended Release Take 1 tablet daily Quantity: 0 Refills: 0 Ordered: 19-Dec-2016 DO Active rosuvastatin calcium 5 mg oral tablet (16 sources) HMG-CoA Reductase Inhibitor Start: 02-07-2023 take 1 tablet by mouth once daily rosuvastatin 5 mg Tab 5 mg = 1 tab(s), Oral, Daily, # 90 tab(s), Refills(s) 0, Pharmacy: [facility], 140.6, cm, 02/10/23 11:29:00 EDT, Height/Length Dosing, 79.2, kg, 02/10/23 11:29:00 EDT, Weight Dosing Start Date: 02/10/23 Status: Ordered Start: 06-23-2017 take 1 tablet by dayo th at bedtime Rosuvastatin Calcium 5 MG Oral Tablet TAKE ONE TABLET BY MOUTH AT BEDTIME Quantity: 90 Refills: 3 Ordered: 02-Nov-2021 Tom Ruano MD Start : 17-Jan-2021 Active take 1 tablet by dayo th every twenty-four hours Rosuvastatin Calcium 20 MG 1 tablet Orally Once a day Active Vitamin C 500 MG (5 sources) Vitamin C 500 MG Orally Active Vitamin D-3 5000 UNIT (6 sources) take 1 tablet by dayo th once daily Vitamin D-3 5000 UNIT 1 tablet Orally Once a day Active Completed/Discontinued Medications Medication Drug Class(es) Dates Sig (Normalized) Sig (Original) acetaminophen 325 mg / oxyCODONE hydrochloride 5 mg oral tablet (5 sources) Opioid Agonist take 1 tablet by mouth every six hours as needed for pain Percocet 5-325 MG Oral Tablet TAKE 1 TABLET EVERY 6 HOURS NEEDED FOR PAIN. Quantity: 0 Refills: 0 Ordered: 19-Dec-2016 DO Active atorvastatin 80 mg oral tablet (6 sources) HMG-CoA Reductase Inhibitor Start: 05-14-2017 End: 06-23-2017 take 80 mg by mouth once daily Atorvastatin Discontinued 80 MG PO Daily May 14, 2017 12:00am June 23, 2017 4:33pm 3 ml insulin aspart, human 100 unt/ml pen injector (11 sources) Insulin Analog Start: 05-14-2017 End: 07-16-2017 NovoLOG FlexPen 100 UNIT/ML Subcutaneous Solution Pen-injector Quantity: 15 Refills: 0 Ordered: 15-Nov-2021 DO Start : 15-Nov-2021 Active NovoLOG Active lisinopril 2.5 mg oral tablet (17 sources) Angiotensin Converting Enzyme Inhibitor Start: 05-14-2017 End: 07-20-2018 take 2.5 mg by mouth once daily Lisinopril Discontinued 2.5 MG PO Daily May 14, 2017 12:00am July 20, 2018 7:43am take 1 tablet by dayo th every twenty-four hours Lisinopril 5 MG 1 tablet Orally Once a day Active metoprolol tartrate 25 mg oral tablet (11 sources) beta-Adrenergic Miquel Start: 05-14-2017 End: 06-23-2017 take 25 mg by mouth twice daily Metoprolol Tartrate Discontinued 25 MG PO Twice daily May 14, 2017 12:00am June 23, 2017 4:33pm take 1 tablet by dayo th every twelve hours Metoprolol Tartrate 25 MG Oral Tablet TA KE 1 TABLET Every twelve hours Quantity: 60 Refills: 0 Ordered: 19-Dec-2016 David BRAND-ELLIOT, Veronica Active Multiple Vitamins/Minerals TABS (10 sources) Multiple Vitamins/Minerals TABS TAKE 1 TABLET DAILY. Quantity: 0 Refills: 0 Ordered: 19-Dec-2016 DO Active spironolactone 25 mg oral tablet (12 sources) Aldosterone Antagonist Start: 017 take 1 tablet by mouth once daily Spironolactone 25 MG Oral Tablet TAKE 1 TABLET DAILY. Quantity: 90 Refills: 3 Ordered: 02-Nov-2021 Tom Ruano MD Start : 02-Nov-2021 Active new start traMADol hydrochloride 50 mg oral tablet (1 source) Opioid Agonist Start: End: take 50 mg by mouth every four to six hours Tramadol Discontinued 50 MG PO EVERY 4-6 HOURS 20 July 24, 2018 1:00am July 31, 2018 1:02am Vitamin B Complex (7 sources) Start: End: take 1 tablet by mouth once daily Vitamin B Complex Discontinued 1 TAB PO Daily May 14, 2017 12:00am July 20, 2018 7:44am Vitamin B Comple x - Orally Active Problems Active Problems Problem Classification Problem Date Documented Date Episodic/Chronic Aortic and peripheral arterial embolism or thrombosis (6 sources) Finding of aorta; Translations: [Embolism and thrombosis of unspecified parts of aorta] Chronic Chronic kidney disease (3 sources) Chronic kidney disease, unspecified; Translations: [Chronic kidney disease, stage 4 (severe)] Onset: 2 02-05-2023 Chronic Conditions associated with dizziness or vertigo (10 sources) Dizziness; Translations: [Dizziness and giddiness] Episodic Congestive heart failure; nonhypertensive (1 source) Congestive heart failure; nonhypertensive Onset: 8 Coronary atherosclerosis and other heart disease (20 sources) Chronic ischemic heart disease, unspecified; Translations: [Atherosclerotic heart disease of [place] coronary artery without angina pectoris] Onset: 8 Chronic Diabetes mellitus with complications (9 sources) 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; Translations: [Type 1 diabetes mellitus with diabetic chronic kidney disease] Onset: 2 Chronic Diabetes mellitus without complication (14 sources) Type 2 diabetes mellitus; Translations: [Diabetes mellitus without mention of complication, type II or unspecified type, not stated as uncontrolled] 02-05-2023 Chronic Diabetes mellitus without complication (1 source) Diabetes mellitus without complication Onset: 8 Disorders of lipid metabolism (20 sources) Dyslipidemia; Translations: [Other and unspecified hyperlipidemia] Resolved: 3 02-05-2023 Chronic Essential hypertension (13 sources) Hypertensive disorder; Translations: [Unspecified essential hypertension] Chronic Essential hypertension (1 source) Essential hypertension Onset: 8 Fluid and electrolyte disorders (10 sources) Hyperkalemia; Translations: [Hyperpotassemia] Episodic Genitourinary symptoms and ill-defined conditions (1 source) Urinary incontinence 02-10-2023 Chronic Gout and other crystal arthropathies (1 source) Gout 02-05-2023 Chronic Heart valve disorders (10 sources) Mitral valve regurgitation; Translations: [Mitral valve disorders] Chronic Nutritional deficiencies (1 source) Vitamin D deficiency 02-05-2023 Chronic Occlusion or stenosis of precerebral arteries (13 sources) Right carotid artery occlusion; Translations: [Occlusion and stenosis of carotid artery without mention of cerebral infarction] Chronic Osteoarthritis (10 sources) Osteoarthritis of left hip joint; Translations: [Unilateral primary osteoarthritis, left hip] Chronic Other circulatory disease (10 sources) Carotid bruit; Translations: [Other symptoms involving cardiovascular system] Episodic Other circulatory disease (10 sources) History of angioplasty; Translations: [Other postprocedural status] Episodic Other connective tissue disease (10 sources) Pain in lower limb; Translations: [Pain in limb] Episodic Other lower respiratory disease (10 sources) Dyspnea on exertion; Translations: [Shortness of breath] Episodic Other nervous system disorders (6 sources) Chronic pain; Translations: [Other chronic pain] Chronic Other nervous system disorders (1 source) Other chronic pain Chronic Other non-traumatic joint disorders (1 source) Pain in left hip Episodic Other nutritional; endocrine; and metabolic disorders (2 sources) Body mass index 30+ - obesity; Translations: [Body Mass Index 35.0-35.9, adult] Chronic Other nutritional; endocrine; and metabolic disorders (2 sources) Obese class II; Translations: [Obesity, unspecified] Chronic Other nutritional; endocrine; and metabolic disorders (8 sources) Obesity; Translations: [Obesity, unspecified] Chronic Other screening for suspected conditions (not mental disorders or infectious disease) (10 sources) Electrocardiogram abnormal; Translations: [Nonspecific abnormal electrocardiogram [ECG] [EKG]] Episodic Peripheral and visceral atherosclerosis (19 sources) Peripheral vascular disease; Translations: [Peripheral vascular disease, unspecified] Chronic Residual codes; unclassified (10 sources) Other specified health status; Translations: [Statin intolerance] Episodic Residual codes; unclassified (2 sources) Swelling - edema - symptom; Translations: [Edema] Episodic Residual codes; unclassified (6 sources) Edema; Translations: [Edema] Episodic Screening and history of mental health and substance abuse codes (8 sources) Ex-smoker; Translations: [Personal history of tobacco use] Episodic Comment on above: Quit 25+ years ago; Spondylosis; intervertebral disc disorders; other back problems (11 sources) Spondylosis without myelopathy or radiculopathy, lumbosacral region; Translations: [Other intervertebral disc degeneration, lumbar region] Onset: 2 Chronic Spondylosis; intervertebral disc disorders; other back problems (1 source) Spondylosis; intervertebral disc disorders; other back problems; Translations: [Other spondylosis with radiculopathy, lumbar region] Onset: 3 Unclassified (1 source) Peripheral vascular disease, unspecified / I73.9(ICD-9) Onset: 8 Unclassified (2 sources) Chronic ischemic heart disease, unspecified / I25.9(ICD-9) Onset: 8 Unclassified (1 source) Encounter for preprocedural cardiovascular examination / Z01.810(ICD-9) Onset: 8 Unclassified (1 source) Nonrheumatic mitral (valve) insufficiency / I34.0(ICD-9) Onset: 8 Unclassified (1 source) Coronary angioplasty status / Z98.61(ICD-9) Onset: 8 Unclassified (1 source) Personal history of nicotine dependence / Z87.891(ICD-9) Onset: 8 Unclassified (1 source) Obesity, unspecified / E66.9(ICD-9) Onset: 8 Unclassified (2 sources) Athscl heart disease of [place] coronary artery w/o ang pctrs / I25.10(ICD-9) Onset: 8 Unclassified (1 source) Abnormal electrocardiogram [ECG] [EKG] / R94.31(ICD-9) Onset: 8 Unclassified (1 source) Presence of aortocoronary bypass graft / Z95.1(ICD-9) Onset: 8 Unclassified (1 source) Old myocardial infarction / I25.2(ICD-9) Onset: 8 Unclassified (1 source) Patient encounter status 02-10-2023 Unclassified (1 source) Pain in left hip; Translations: [Pain in left hip] Onset: Past or Other Problems Problem Classification Problem Date Documented Da te Episodic/Chronic Spondylosis; intervertebral disc disorders; other back problems (2 sources) Sciatica, unspecified side; Translations: [Sciatica, left side] Onset: 10-18-2021 Episodic Unclassified (1 source) Other low back pain M54.59 Results Test Name Value Interpretation Reference Range Facil ity Ambulatory Visit Summaryon 0 08-21-2023 Ambulatory Visit Summary LEXI TATUM :1945 Visit Date:08/20/2023 Ambulatory Visit Instructions Your Diagnosis Annual visit for general adult medical examination without abnormal findings Encounter for screening for other disorder Screening declined by patient Pure hypercholesterolemia Diabetes Class 3 severe obesity with serious comorbidity in adult Adult BMI 37.0-37.9 kg/sq m Your Care Team Attending Physician - Maxine Sanchez Primary Care Physician - Maxine Sanchez This Is Your Medications List Misc Prescription (Misc DME Prescription) acetaminophen (Tylenol) allopurinol (allopurinol 300 mg Tab) aspirin (aspirin 81 mg Oral EC Tab) carvedilol (carvedilol 25 mg Tab) cholecalciferol (cholecalciferol 1000 intl units oral capsule) clopidogrel (Plavix 75 mg Tab) docusate (Colace) furosemide (furosemide 40 mg Tab) gabapentin (gabapentin 300 mg Cap) insulin aspart (insulin aspart 100 units/mL injectable solution) insulin glargine (Basaglar KwikPen 100 units/mL subcutaneous solution) insulin lispro (HumaLOG 100 units/mL injectable solution) oxybutynin (oxybutynin 10 mg ER Tab) potassium chloride (potassium chloride 10 mEq ER Tab) rosuvastatin (rosuvastatin 5 mg Tab) Procedures Performed Cataract surgery, section, History of coronary artery bypass grafting... Discharge Vitals Heart Rate (Peripheral) 77 Blood Pressure 120/60 Height 143 cm Height 56 in Weight 75.7 kg Weight 166.54 lb BMI 37.02 What to do next Scheduled Follow-Up Appointments Friday 3:40 PM EDT With: Maxine Sanchez Where: [facility] [place] Normal [facility] Office/Clini c Noteon 02-08-2024 Family Medicine Office/Clinic Note Chief Complaint Subsequent Medicare Wellness Visit Review of Systems PHQ Score Initial Depression Screen Score: 0 SCORE Physical Exam Vitals & Measurements HR: 77(Peripheral) BP: 120/60 SpO2: 95% HT: 143 cm HT: 56 in WT: 75.7 kg WT: 166.54 lb BMI: 37.02 Assessment/Plan 1. Annual visit for general adult medical examination without abnormal findings (Z00.00: Encounter for general adult medical examination without abnormal findings) The patient was given a customized and personalized print out of all the current AHRQ USPSTF?s recommendations for preventative services and all current CDC recommended immunizations, relevant risk recommendations and the following patient brochures were given. Reviewed Medicare preventative services checklist. CDC-Falls Prevention and home safety screening reviewed. Patient denies any falls in last 12 months, voices no worry about falling, exhibits no problems with sitting, standing, ambulation. Pt voices understanding with keeping walk way area free of clutter to prevent tripping and/or falling. 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 Patient denies any problems with ADL?s and Instrumental ADL?s. Cognitive screening completed with memory and clock face drawing. Immunization Record reviewed with the patient. Discussed Shingrix vaccine with educational handout and availability. COVID vaccines have been administered, immunization record is up to date. Allergies and medications reviewed and up to date. Patient denies concerns with taking medication as prescribed, reviewed OTC medications with patient, medication list up to date. Blood tests were reviewed: UTD, seeing PCP today for diabetes check up. Colonoscopy, aged out. Mammogram, aged out. Reviewed concerns with bladder control over past 6 months with no concerns. Reviewed pain symptoms with patient: patient reports pain of hip and back. Rates 10 at worst. Does see pain management. Takes tylenol and uses ice as needed, states it does help. Reviewed all outside providers that patient follows. Last visit summary notes available in chart and/or have been requested. Follow up scheduled, seeing PCP same day 08/21/2023 AWV has been scheduled, TBD 2. Encounter for screening for other disorder (Z13.89: Encounter for screening for other disorder) Medicare provides yearly screening for alcohol and depression concerns. This is completed during our Medicare Wellness visit for those who do not have a current diagnosis of depression or concerns with alcohol use. I spent a total of 17 minutes on this date of service which included preparing to see the patient, face to face patient care, completing clinical documentation, obtaining and/or reviewing separately obtained history, counseling and educating the patient with handouts. Explanations were provided with reviewing questionnaires. AUDIT risk assessment screening completed, risk score 1, with patient denying concerns with use. Completed PHQ-2 risk assessment for depression with risk score 0, negative findings. Patient has been reminded to notify the provider if there would be a change or concerns with symptoms with fear, unable to sleep, worrying too much or feeling down and/or sad with lost of interest with daily activities. Will continue to monitor with screening yearly during Medicare wellness visits. 3. Screening declined by patient (Z53.20: Procedure and treatment not carried out because of patient's decision for unspecified reasons) Reviewed recommended bone mineral density testing for women who are 65 years of age or older. Educational handout for Bone Health reviewed and provided to the patient during today's Medicare Wellness visit. Medicare recommends testing every 5 years if results are WNL and every 2 years if results shows low bone mass. This is a deterioration of bone structure and can increase the risk of a fracture with falls. Eating a well-balanced diet with plenty of Calcium and Vitamin D will help to protect your bones. Daily weight-bearing physical activity can help build strong bones, improve bone amounts, and may reduce the risk of weakening of bones (Osteoporosis) later in life. Screening declined by patient. 4. Pure hypercholesterolemia (E78.00: Pure hypercholesterolemia , unspecified) Reviewed healthy lifestyle with low fat diet and exercise regimen. When you are overweight our body produces more lipids. Risk also increases with family history of hyperlipidemia and with monitoring alcohol use and avoid smoking. Patient voices understanding with importance of monitoring dietary intake to reduce risk factors associated with CVA. Taking rosuvastatin medications daily as directed. Will continue to follow up with office visits with updated labs as directed. 5. Diabetes (E11.9: Type 2 diabetes mellitus without complications) Patient is compliant on current DM medications: Metformin and insulin. Does monitors BS at home: DM stoplight handout reviewed with s/s to monitor f (more content not included)... Normal [facility] Comment on above: Result Comment: Elec tronically Signed By: Maxine Sanchez\.br\Date and Time Signed: 08/21/23 09:12 EST\.br\Electronically Co-Signed By: Cecilia Lylesbr\Date and Time Co-Signed: 08/21/23 08:13 EST Family Medicine Office/Clinic Note HPI Staff Lexi is a 77 year old female presenting for 3 month follow up Patient is here for follow up on Diabetes. How often are you checking your blood sugars? 1 times per day What are your average readings? 80-110 has had a few 150's Paresthesias, Ulcerations or sores? no Lisinopril, aspirin, statin therapy? Yes Foot Exam: done recently(cecilia getting records) Eye Exam: Last A1c: Hgb A1C %: 8.7 % High (05/21/23 11:34:00) DUE and micro albumin Questions/Concerns: pt states insurance is no longer covering sliding scale and now needs order for Humalog. History of Present Illness pt presents today for DM follow up. she is in need of hip surgery but surgeon will not touch her until she gets diabetes under control Review of Systems PHQ Score Initial Depression Screen Score: 0 SCORE ROS - Provider Constitutional: no fever, no chills, no sweats, no fatigue Respiratory: no shortness of breath, no cough, no orthopnea, no wheezing. Cardiovascular: no chest pain, no palpitations, no edema. Neurologic: no headache, no dizziness, no numbness, no weakness. hip pain Physical Exam Vitals & Measurements HR: 78(Peripheral) RR: 18 BP: 120/60 SpO2: 95% HT: 56 in HT: 143 cm WT: 75.7 kg WT: 166.54 lb BMI: 37.02 General: alert, no acute distress ENMT: oral mucosa moist, no pharyngeal erythema or exudate Cardiovascular: regular rate and rhythm, normal peripheral perfusion Respiratory: Lungs CTA, respirations non labored Extremities: no deformity, no trauma Neurological: oriented x 4, LOC appropriate for age, CN II-XII intact, motor strength equal & normal bilaterally, speech normal Assessment/Plan 1. Type 1 diabetes mellitus with hypercholesterolemia (E10.69: Type 1 diabetes mellitus with other specified complication) LAst HGBA1C was 8.7. will draw in office today. pt needs to get it to 7 before she can have hip surgery. pt is using a wheelchair to get around because it is so painful to walk. pt states insurance will no longer cover novalog so we will change it to preferred med humalog. all quesitons answered. RTC 3 months 2. Chronic kidney disease, stage 3 unspecified (N18.30: Chronic kidney disease, stage 3 unspecified) see above Ordered: insulin lispro, 20 unit(s), SubCutaneous, As Directed, as needed per sliding scale, # 15 mL, Refills(s) 2, Pharmacy: [id number], 143, cm, 08/20/23 16:15:00 EST, Height/Length Dosing, 75.7, kg, 08/20/23 16:15:00 EST, Weight Dosing HgbA1c Lab Specimen Collect [id number] 3. Long-term insulin use (Z79.4: manager terminal (current) use of insulin) insulins changed to humalog due to insurance 4. Diabetic peripheral neuropathy (E11.42: Type 2 diabetes mellitus with diabetic polyneuropathy) see above Pure hypercholesterolemia , unspecified (E78.00: Pure hypercholesterolemia , unspecified) cholesterol well controlled Follow-up No qualifying data available Problem List/Past Medical History Ongoing Chronic kidney disease, stage 3 unspecified Class 3 severe obesity with serious comorbidity in adult Diabetic peripheral neuropathy Flank pain Gout Long-term insulin use Osteoarthritis Pure hypercholesterolemia Type 1 diabetes mellitus with hypercholesterolemia Urinary incontinence Vitamin D deficiency Wellness examination Historical CKD (chronic kidney disease) Procedure/Surgical History Cataract surgery, section, History of coronary artery bypass grafting... Medications allopurinol 300 mg Tab, 300 mg= 1 tab(s), Oral, Daily aspirin 81 mg Oral EC Tab Basaglar KwikPen 100 units/mL subcutaneous solution, 50 unit(s), SubCutaneous, Daily, 2 refills carvedilol 25 mg Tab, 25 mg= 1 tab(s), BID cholecalciferol 1000 intl units oral capsule, 25 mcg= 1 cap(s), Oral, Daily, 1 refills Colace, Oral, Daily furosemide 40 mg Tab, 40 mg= 1 tab(s), Daily gabapentin 300 mg Cap, 300 mg= 1 cap(s), Oral, BID, 1 refills HumaLOG 100 units/mL injectable solution, 20 unit(s), SubCutaneous, As Directed, 2 refills insulin aspart 100 units/mL injectable solution, See Instructions, 3 refills Misc DME Prescription, See Instructions, 3 refills oxybutynin 10 mg ER Tab, 10 mg= 1 tab(s), Oral, Daily Plavix 75 mg Tab, 75 mg= 1 tab(s), Daily potassium chloride 10 mEq ER Tab, 10 mEq= 1 tab(s), Daily rosuvastatin 5 mg Tab, 5 mg= 1 tab(s), Oral, Daily Tylenol, 650 mg, Oral Allergies atorvastatin (Myalgia) pravastatin (Unknown) Social History Alcohol Beer, Wine, 1-2 times per year, Household alcohol concerns: No., 08/20/2023 Tobacco Former smoker, quit more than 30 days ago Tobacco Use:. Never Smokeless Tobacco Use:. Household tobacco concerns: No., 08/20/2023 Family History Acute myocardial infarction: Father. CABG - Coronary artery bypass graft: Father. Hypertension: Mother and Father. Immunizations Vaccine Date Status Comments influenza virus vaccine, inactivated 07/03/2022 Recorded SARS-CoV-2 (COVID-19) [id number] 06/17/2022 Re (more content not included)... Normal [facility] Comment on above: Result Comment: Elec tronically Signed By: Maxine Sanchez\.br\Date and Time Signed: 08/21/23 08:02 EST [employer] 08-21-2023 Forms [id number] Normal [facility] AkxI1rzs 08-21-2023 HbA1c (Bld) [Mass fraction] 8.2 % High <=5.9 [facility] Comment on above: Performed By: #### [id number] ####[facility] [id number] [place] [address] Patient Educationon 08-21-19 24 Patient Education Caregiving Fall Prevention in the Home, Adult Falls can cause injuries and affect people of all ages. There are many simple things that you can do to make your home safe and to help prevent falls. Ask for help when making these changes, if needed. What actions can I take to prevent falls? General instructions ? Use good lighting in all rooms. Replace any light bulbs that burn out, turn on lights if it is dark, and use night-lights. ? Place frequently used items in wlmo-eg-rjojk places. Lower the shelves around your home if necessary. ? Set up furniture so that there are clear paths around it. Avoid moving your furniture around. ? Remove throw rugs and other tripping hazards from the floor. ? Avoid walking on wet floors. ? Fix any uneven floor surfaces. ? Add color or contrast paint or tape to grab bars and handrails in your home. Place contrasting color strips on the first and last steps of staircases. ? When you use a stepladder, make sure that it is completely opened and that the sides and supports are firmly locked. Have someone hold the ladder while you are using it. Do not climb a closed stepladder. ? Know where your pets are when moving through your home. What can I do in the bathroom? ? Keep the floor dry. Immediately clean up any water that is on the floor. ? Remove soap buildup in the tub or shower regularly. ? Use nonskid mats or decals on the floor of the tub or shower. ? Attach bath mats securely with double-sided, nonslip rug tape. ? If you need to sit down while you are in the shower, use a plastic, nonslip stool. ? Install grab bars by the toilet and in the tub and shower. Do not use towel bars as grab bars. What can I do in the bedroom? ? Make sure that a bedside light is easy to reach. ? Do not use oversized bedding that reaches the floor. ? Have a firm chair that has side arms to use for getting dressed. What can I do in the kitchen? ? Clean up any spills right away. ? If you need to reach for something above you, use a sturdy step stool that has a grab bar. ? Keep electrical cables out of the way. ? Do not use floor kinyarwanda or wax that makes floors slippery. If you must use wax, make sure that it is non-skid floor wax. What can I do with my stairs? ? Do not leave any items on the stairs. ? Make sure that you have a light switch at the top and the bottom of the stairs. Have them installed if you do not have them. ? Make sure that there are handrails on both sides of the stairs. Fix handrails that are broken or loose. Make sure that handrails are as long as the staircases. ? Install non-slip stair treads on all stairs in your home. ? Avoid having throw rugs at the top or bottom of stairs, or secure the rugs with carpet tape to prevent them from moving. ? Choose a carpet design that does not hide the edge of steps on the stairs. ? Check any carpeting to make sure that it is firmly attached to the stairs. Fix any carpet that is loose or worn. What can I do on the outside of my home? ? Use bright outdoor lighting. ? Regularly repair the edges of walkways and driveways and fix any cracks. ? Remove high doorway thresholds. ? Trim any shrubbery on the main path into your home. ? Regularly check that handrails are securely fastened and in good repair. Both sides of all steps should have handrails. ? Install guardrails along the edges of any raised decks or porches. ? Clear walkways of debris and clutter, including tools and rocks. ? Have leaves, snow, and ice cleared regularly. ? Use sand or salt on walkways during winter months. ? In the garage, clean up any spills right away, including grease or oil spills. What other actions can I take? ? Wear closed-toe shoes that fit well and support your feet. Wear shoes that have rubber soles or low heels. ? Use mobility aids as needed, such as canes, walkers, scooters, and crutches. ? Review your medicines with your health care provider. Some medicines can cause dizziness or changes in blood pressure, which increase your risk of falling. Talk with your health care provider about other ways that you can decrease your risk of falls. This may include working with a physical therapist or warehouse trainer to improve your strength, balance, and endurance. Where to find more information ? Centers for Disease Control and Prevention, [place]: www.cdc.gov ? National [place] [employer]: www.jasmina.nih.gov Contact a health care provider if: ? You are afraid of falling at home. ? You feel weak, drowsy, or dizzy at home. ? You fall at home. Summary ? There are many simple things that you can do to make your home safe and to help prevent falls. ? Ways to make your home safe include removing tripping hazards and installing grab bars in the bathroom. ? Ask for help when making these changes in your home. This information is not intended to replace advice given to you by your health ca (more content not included)... [facility] Ambulatory Visit Summaryon 0 08-20-2023 Ambulatory Visit Summary LUCRECIALATRICIALEXI MARTINEZ :1945 Visit Date:08/20/2023 Ambulatory Visit Instructions Your Diagnosis Chronic kidney disease, stage 3 unspecified Your Care Team Attending Physician - Maxine Sanchez Primary Care Physician - Maxine Sanchez This Is Your Medications List Misc Prescription (Misc DME Prescription) acetaminophen (Tylenol) allopurinol (allopurinol 300 mg Tab) aspirin (aspirin 81 mg Oral EC Tab) carvedilol (carvedilol 25 mg Tab) cholecalciferol (cholecalciferol 1000 intl units oral capsule) clopidogrel (Plavix 75 mg Tab) docusate (Colace) furosemide (furosemide 40 mg Tab) gabapentin (gabapentin 300 mg Cap) insulin aspart (insulin aspart 100 units/mL injectable solution) insulin glargine (Basaglar KwikPen 100 units/mL subcutaneous solution) oxybutynin (oxybutynin 10 mg ER Tab) potassium chloride (potassium chloride 10 mEq ER Tab) rosuvastatin (rosuvastatin 5 mg Tab) Procedures Performed Cataract surgery, section, History of coronary artery bypass grafting... Discharge Vitals Heart Rate (Peripheral) 78 Respiratory Rate 18 Blood Pressure 120/60 Height 143 cm Height 56 in Weight 75.7 kg Weight 166.54 lb BMI 37.02 What to do next Scheduled Follow-Up Appointments Friday. 2023 3:40 PM EDT With: Maxine Sanchez Where: [facility] Ambulatory Visit Summary RC LEXI Baez :1945 Visit Date:08/20/2023 Ambulatory Visit Instructions Your Care Team Attending Physician - Maxine Sanchez Primary Care Physician - Maxine Sanchez This Is Your Medications List Misc Prescription ([facility] DME Prescription) acetaminophen (Tylenol) allopurinol (allopurinol 300 mg Tab) aspirin (aspirin 81 mg Oral EC Tab) carvedilol (carvedilol 25 mg Tab) cholecalciferol (cholecalciferol 1000 intl units oral capsule) clopidogrel (Plavix 75 mg Tab) docusate (Colace) furosemide (furosemide 40 mg Tab) gabapentin (gabapentin 300 mg Cap) insulin aspart (insulin aspart 100 units/mL injectable solution) insulin glargine (Basaglar KwikPen 100 units/mL subcutaneous solution) oxybutynin (oxybutynin 10 mg ER Tab) potassium chloride (potassium chloride 10 mEq ER Tab) rosuvastatin (rosuvastatin 5 mg Tab) Procedures Performed Cataract surgery, section, History of coronary artery bypass grafting... Discharge Vitals Heart Rate (Peripheral) 77 Blood Pressure 120/60 Height 143 cm Height 56 in Weight 75.7 kg Weight 166.54 lb BMI 37.02 Medications What How Much When Why Instructions Unchanged acetaminophen (Tylenol) 650 Milligram By Mouth Unchanged allopurinol (allopurinol 300 mg Tab) 1 Tablets By Mouth Every day Unchanged aspirin (aspirin 81 mg Oral EC Tab) Oral Unchanged carvedilol (carvedilol 25 mg Tab) 1 Tablets 2 times a day Oral Unchanged cholecalciferol (cholecalciferol 1000 intl units oral capsule) 1 Capsules By Mouth Every day Oral Unchanged clopidogrel (Plavix 75 mg Tab) 1 Tablets Every day Oral Unchanged docusate (Colace) By Mouth Every day Unchanged furosemide (furosemide 40 mg Tab) 1 Tablets Every day 30 tab(s) Unchanged gabapentin (gabapentin 300 mg Cap) 1 Capsules By Mouth 2 times a day Oral Unchanged insulin aspart (insulin aspart 100 units/ mL injectable solution) See instructions 20 unit(s) subcutaneous as needed. follow sliding scale Unchanged insulin glargine (Basaglar KwikPen 100 units/ mL subcutaneous solution) 50 Units Subcutaneous Every day Unchanged Misc Prescription ([facility] DME Prescription) See instructions Type 1 diabetes True Metrix Test Strips Check AC&HS Unchanged oxybutynin (oxybutynin 10 mg ER Tab) 1 Tablets By Mouth Every day Wellness examination BMI 40.0-44.9, adult Former smoker Type 1 diabetes CKD (chronic kidney disease) Gout Pure hypercholesterolemia Vitamin D deficiency Urinary incontinence Unchanged potassium chloride (potassium chloride 10 mEq ER Tab) 1 Tablets Every day Oral Unchanged rosuvastatin (rosuvastatin 5 mg Tab) 1 Tablets By Mouth Every day Allergies atorvastatin (Myalgia) pravastatin (Unknown) Problems Ongoing - Any problem that you are currently receiving treatment for. Chronic kidney disease, stage 3 unspecified Class 3 severe obesity with serious comorbidity in adult Diabetic peripheral neuropathy Flank pain Gout Long-term insulin use Osteoarthritis Pure hypercholesterolemia Type 1 diabetes mellitus with hypercholesterolemia Urinary incontinence Vitamin D deficiency Wellness examination Historical - Any problem that you are no longer receiving treatment for. CKD (chronic kidney disease) Patient Survey You may receive a survey via text or e-mail asking about your office visit. Please share your experience with us by completing your survey. We appreciate your feedback and thank you for choosing us for your care. [facility] Pre-Visit Planningon 023 Pre-Visit Planning - From: Bibiana Walter To: Maxine Sanchez; Sent: 05/20/2023 08:13:06 EST Subject: Pre-Visit Planning Due Date/Time: 05/20/2023 08:13:00 EST Caller Name: LEXI TATUM; Caller Number: , M [facility] Maxine. During a pre-visit planning chart review, I noted the following documentation in the medical record: Current Problem List: CKD (Chronic kidney disease, unspecified). GFR: =39 on 02/10/2023 and =35 on 01/30/2022. 02/11/2023 Office Visit Note: HPI Staff- Any previous diagnosis: acute systolic heart failure, CKD stage 4, Diabetic peripheral neuropathy, Vitamin D deficiency, Type 1 diabetes, gout, osteoarthritis, pure hypercholesterolemia . Based on your medical judgment, can you please clarify which, if any, of the following conditions are present? I can update the Chronic Problem List with your response if you would like. -Chronic Kidney Disease Stage 3b (GFR 30-44) -Chronic Kidney Disease Stage 3, unspecified (GFR 30-59) -Chronic Kidney Disease Stage 4 (GFR 15-29) -Other (please specify): In responding to this request, please exercise your independent professional judgment. The fact that a question is asked does not imply that any particular answer is desired or expected. If you have any questions, please feel free to contact me at extension [phone]. Thank you! Bibiana Walter LPN - From: Maxine Sanchez To: Saba Bibiana Artis; Sent: 05/28/2023 14:06:51 EST Subject: RE: Pre-Visit Planning Caller Name: LEXI TATUM; Caller Number: H , M chronic kidney disease stage 3, unspecified Normal [facility] Pre-Visit Planning - From: SabaStacy riveraissa Chandra To: Maxine Sanchez; Sent: 05/20/2023 08:18:07 EST Subject: Pre-Visit Planning Due Date/Time: 05/20/2023 08:18:00 EST Caller Name: LEXI TATUM; Caller Number: H , M Fermín Goodman. During a pre-visit planning chart review, I noted the following documentation in the medical record indicates that this patient had BMI of 39.36 on 03/05/2023 and a diagnosis of Type 1 diabetes mellitus with hypercholesterolemia noted on Current Problem List. If BMI during this current visit is greater than 35: Based on your medical judgment, can you further clarify the following? I can update the Chronic Problem List with your response if you would like. -Morbid obesity (please also include additional diagnosis to reflect current BMI) -Class 3 severe obesity with serious comorbidity in adult (please also include additional diagnosis to reflect current BMI) -Other (please specify): -Unable to determine In responding to this request, please exercise your independent professional judgment. The fact that a question is asked does not imply that any particular answer is desired or expected. If you have any questions, please feel free to contact me per TEAMS or . Thank you! Bibiana Walter LPN - From: Maxine Sanchez To: Bibiana Walter Chandra; Sent: 05/28/2023 13:26:36 EST Subject: RE: Pre-Visit Planning Caller Name: LEXI TATUM; Caller Number: Giovanni , M class 3 obesity with Type 1 diabetes and hypercholesterolemia [address] Ambulatory Visit Summaryon 1 07-21-2022 Ambulatory Visit Summary LUCRECIALATRICIAJUAN LEXI Nestor :1945 Visit Date:05/21/2023 Ambulatory Visit Instructions Your Diagnosis Type 1 diabetes mellitus with hypercholesterolemia Long-term insulin use Former smoker BMI 40.0-44.9, adult Your Care Team Attending Physician - Maxine Sanchez Primary Care Physician - Maxine Sanchez This Is Your Medications List Misc Prescription (Misc DME Prescription) allopurinol (allopurinol 300 mg Tab) aspirin (aspirin 81 mg Oral EC Tab) carvedilol (carvedilol 25 mg Tab) cholecalciferol (cholecalciferol 1000 intl units oral capsule) clopidogrel (Plavix 75 mg Tab) furosemide (furosemide 40 mg Tab) gabapentin (gabapentin 300 mg Cap) insulin aspart (insulin aspart 100 units/mL injectable solution) insulin glargine (Basaglar KwikPen 100 units/mL subcutaneous solution) oxybutynin (oxybutynin 10 mg ER Tab) potassium chloride (potassium chloride 10 mEq ER Tab) rosuvastatin (rosuvastatin 5 mg Tab) Procedures Performed Cataract surgery, section, History of coronary artery bypass grafting... Discharge Vitals Heart Rate (Peripheral) 80 Respiratory Rate 20 Blood Pressure 142/88 Height 140 cm Height 55 in Weight 78.5 kg Weight 172.7 lb BMI 40.05 What to do next Scheduled Follow-Up Appointments Friday 11:00 AM EST With: Maxine Sanchez [facility] Office/Clini c Noteon 05-21-2023 Family Medicine Office/Clinic Note HPI Staff Lexi is a 77 year old female presenting for 3 month follow up Patient is here for follow up on Diabetes. How often are you checking your blood sugars? 1 times per day What are your average readings? 130 - 225_ FASTING at night in 80s. Paresthesias, Ulcerations or sores? no Lisinopril, aspirin, statin therapy? Yes Foot Exam: due Eye Exam: DUe Last A1c: Hgb A1C %: 10.9 % High (02/10/23 12:11:00) Due today Questions/Concerns: Pt had a steroid injection in her hip, said her sugars are all over since the injection. Was over 400 day after procedure History of Present Illness pt presents today for follow up on diabetes. will check HGBA1C today Review of Systems ROS - Provider Constitutional: no fever, no chills, no sweats, no fatigue Respiratory: no shortness of breath, no cough, no orthopnea, no wheezing. Cardiovascular: no chest pain, no palpitations, no edema. Neurologic: no headache, no dizziness, no numbness, no weakness. left hip pain Physical Exam Vitals & Measurements HR: 80(Peripheral) RR: 20 BP: 142/88 SpO2: 94% HT: 55 in HT: 140 cm WT: 78.5 kg WT: 172.7 lb BMI: 40.05 General: alert, no acute distress ENMT: oral mucosa moist, no pharyngeal erythema or exudate Cardiovascular: regular rate and rhythm, normal peripheral perfusion Respiratory: Lungs CTA, respirations non labored Extremities: no deformity, no trauma Neurological: oriented x 4, LOC appropriate for age, CN II-XII intact, motor strength equal & normal bilaterally, speech normal Assessment/Plan 1. Type 1 diabetes mellitus with hypercholesterolemia (E10.69: Type 1 diabetes mellitus with other specified complication) pt presents today for follow up on DM. Last HGBA1C was 10.9%. pt states he BS were running lower than ever until she had steroid injection in her hip. then they ran in the 400's for a week. will check lab today. pt states she needs a hip replacement but can't have it until she gets diabetes under control. will notify pt of results tomorrow. all questions answered. RTC 3 months. Ordered: HgbA1c Lab Specimen Collect [id number] 2. Long-term insulin use (Z79.4: [facility] (current) use of insulin) see above Ordered: HgbA1c Lab Specimen Collect [id number] 3. Former smoker (Z87.891: Personal history of nicotine dependence) continue not smoking 4. BMI 40.0-44.9, adult (Z68.41: Body mass index [BMI] 40.0-44.9, adult) BMI education compelte Orders: cholecalciferol, 125 mcg = 1 cap(s), Oral, Daily, with food, # 90 cap(s), Refills(s) 3, Pharmacy: [facility], 140.6, cm, 02/10/23 11:29:00 EDT, Height/Length Dosing, 79.2, kg, 02/10/23 11:29:00 EDT, Weight Dosing Follow-up No qualifying data available Problem List/Past Medical History Ongoing CKD (chronic kidney disease) Diabetic peripheral neuropathy Flank pain Gout Long-term insulin use Osteoarthritis Pure hypercholesterolemia Type 1 diabetes mellitus with hypercholesterolemia Urinary incontinence Vitamin D deficiency Wellness examination Historical No qualifying data Procedure/Surgical History Cataract surgery, section, History of coronary artery bypass grafting... Medications allopurinol 300 mg Tab, 300 mg= 1 tab(s), Oral, Daily aspirin 81 mg Oral EC Tab Basaglar KwikPen 100 units/mL subcutaneous solution, 50 unit(s), SubCutaneous, Daily, 2 refills carvedilol 25 mg Tab cholecalciferol 1000 intl units oral capsule, 25 mcg= 1 cap(s), Oral, Daily, 1 refills furosemide 40 mg Tab gabapentin 300 mg Cap insulin aspart 100 units/mL injectable solution, See Instructions, 3 refills Misc DME Prescription, See Instructions, 3 refills oxybutynin 10 mg ER Tab, 10 mg= 1 tab(s), Oral, Daily Plavix 75 mg Tab potassium chloride 10 mEq ER Tab rosuvastatin 5 mg Tab, 5 mg= 1 tab(s), Oral, Daily Allergies atorvastatin (Myalgia) pravastatin (Unknown) Social History Tobacco Former smoker, quit more than 30 days ago Tobacco Use:. Never Smokeless Tobacco Use:. Household tobacco concerns: No., 05/21/2023 Immunizations Vaccine Date Status Comments influenza virus vaccine, inactivated 07/03/2022 Recorded SARS-CoV-2 (COVID-19) [id number] 06/17/2022 Recorded 2023-02-10: TPV75 SARS-CoV-2 (COVID-19) mRNA BNT-162b2 vax 04/13/2021 Recorded 2023-02-10: TPV75 SARS-CoV-2 (COVID-19) mRNA BNT-162b2 vax 08/30/2020 Recorded 2023-02-10: TPV75 SARS-CoV-2 (COVID-19) mRNA BNT-162b2 vax 08/09/2020 Recorded 2023-02-10: [id number] influenza virus vaccine, inactivated 07/01/2019 Recorded influenza virus vaccine, inactivated 07/14/2018 Recorded pneumococcal 23-valent vaccine 04/16/2018 Recorded influenza virus vaccine, inactivated 04/16/2018 Recorded influenza virus vaccine, inactivated 05/16/2017 Recorded pneumococcal 13-valent vaccine 10/30/2016 Recorded Normal [facility] Comment on above: Result Comment: Elec tronically Signed By: Maxine Sanchez\.br\Date and Time Signed: 05/21/23 13:14 EST [id number] 05-21-2023 HbA1c (Bld) [Mass fraction] 8.7 % High <=5.9 [facility] Comment on above: Performed By: #### [id number] ####[facility] [id number] [place] [address] Ambulatory Visit Summaryon 0 03-05-2023 Ambulatory Visit Summary LEXI TATUM :1945 Visit Date:03/05/2023 Ambulatory Visit Instructions Your Diagnosis BMI 39.0-39.9,adult Former smoker Flank pain Diabetes Your Care Team Attending Physician - Maxine Sanchez Primary Care Physician - Maxine Sanchez This Is Your Medications List [facility] allopurinol (allopurinol 300 mg Tab) aspirin (aspirin 81 mg Oral EC Tab) carvedilol (carvedilol 25 mg Tab) cholecalciferol (cholecalciferol 1000 intl units oral capsule) cholecalciferol (cholecalciferol 5000 intl units oral capsule) clopidogrel (Plavix 75 mg Tab) furosemide (furosemide 40 mg Tab) gabapentin (gabapentin 300 mg Cap) insulin aspart (insulin aspart 100 units/mL injectable solution) insulin glargine (Basaglar KwikPen 100 units/mL subcutaneous solution) oxybutynin (oxybutynin 10 mg ER Tab) potassium chloride (potassium chloride 10 mEq ER Tab) rosuvastatin (rosuvastatin 5 mg Tab) Procedures Performed Cataract surgery, section, History of coronary artery bypass grafting... Discharge Vitals Heart Rate (Peripheral) 78 Respiratory Rate 18 Blood Pressure 128/82 Height 140.6 cm Height 55 in Weight 77.8 kg Weight 171.16 lb BMI 39.36 What to do next Scheduled Follow-Up Appointments Friday 1:00 PM EDT With: Where: [place] [id number] [place] [id number]- \.br\ Medications\.br\ What How Much When Why Instructions\.br\ Unchanged allopurinol (allopurinol 300 mg Tab) 1 Tablets By Mouth Every day\.br\ Unchanged aspirin (aspirin 81 mg Oral EC Tab) Oral \.br\ Unchanged carvedilol (carvedilol 25 mg Tab) Oral \.br\ Unchanged cholecalciferol (cholecalciferol 1000 intl units oral capsule) 1 Capsules By Mouth Every day Oral \.br\ Unchanged cholecalciferol (cholecalciferol 5000 intl units oral capsule) 1 Capsules By Mouth Every day with food \.br\ Unchanged clopidogrel (Plavix 75 mg Tab) Oral \.br\ Unchanged furosemide (furosemide 40 mg Tab) 30 tab(s) \.br\ Unchanged gabapentin (gabapentin 300 mg Cap) Oral \.br\ Unchanged insulin aspart (insulin aspart 100 units/ mL injectable solution) See instructions 20 unit(s) subcutaneous as needed. follow sliding scale \.br\ Unchanged insulin glargine (Basaglar KwikPen 100 units/ mL subcutaneous solution) 50 Units Subcutaneous Every day\.br\ Unchanged Misc Prescription (Misc DME Prescription) See instructions Type 1 diabetes True Metrix Test Strips Check AC&HS \.br\ Unchanged oxybutynin (oxybutynin 10 mg ER Tab) 1 Tablets By Mouth Every day Wellness examination BMI 40.0-44.9, adult Former smoker Type 1 diabetes CKD (chronic kidney disease) Gout Pure hypercholesterolemia Vitamin D deficiency Urinary incontinence\.br\ Unchanged potassium chloride (potassium chloride 10 mEq ER Tab) Oral \.br\ Unchanged rosuvastatin (rosuvastatin 5 mg Tab) 1 Tablets By Mouth Every day\.br\ Allergies\.br\ atorvastatin (Myalgia)\.br\ pravastatin (Unknown)\.br\ Problems\.br\ Ongoing - Any problem that you are currently receiving treatment for.\.br\ CKD (chronic kidney disease)\.br\ Diabetic peripheral neuropathy\.br\ Flank pain\.br\ Gout\.br\ Osteoarthritis\.br\ Pure hypercholesterolemia\ .br\ Type 1 diabetes\.br\ Urinary incontinence\.br\ Vitamin D deficiency\.br\ Wellness examination\.br\ \.br\ [facility] Family Medicine Office/Clini c Noteon 03-05-2023 Family Medicine Office/Clinic Note HPI Staff Lexi lagos a 77 year old female presenting for follow up diabetes Do you have any of the following symptoms? Last A1C: Hgb A1C %: 10.9 % High (02/10/23 12:11:00) Statin: rosuvastatin 5mg questions/concerns: pt brought blood pressure log with her. she states she hasn't been feeling well lost about 6 pounds and now she has gained it back. Fast BS in morning at been 70-130. The ones that are in the 70-80's where when she wasn't eating. 3 weeks ago pt states she started out with a sore throat and cough took some Robitussin and cough went away. feeling weak and she states in evening she feels really weak. pt is walking with cane denies any falls. Having back pain at night time unable to lay down has been taking extra strength Tylenol. Pt did take 1 ibuprofen last night and that help back and was able to sleep. History of Present Illness pt presents today for follow up Review of Systems PHQ Score Initial Depression Screen Score: 0 ROS - Provider Constitutional: no fever, no chills, no sweats, no fatigue Respiratory: no shortness of breath, no cough, no orthopnea, no wheezing. Cardiovascular: no chest pain, no palpitations, no edema. Neurologic: no headache, no dizziness, no numbness, no weakness. Physical Exam Vitals & Measurements HR: 78(Peripheral) RR: 18 BP: 128/82 SpO2: 93% HT: 55 in HT: 140.6 cm WT: 77.8 kg WT: 171.16 lb BMI: 39.36 General: alert, no acute distress ENMT: oral mucosa moist, no pharyngeal erythema or exudate Cardiovascular: regular rate and rhythm, normal peripheral perfusion Respiratory: Lungs CTA, respirations non labored Extremities: no deformity, no trauma Neurological: oriented x 4, LOC appropriate for age, CN II-XII intact, motor strength equal & normal bilaterally, speech normal Assessment/Plan 1. Diabetes (E11.9: Type 2 diabetes mellitus without complications) BS log reviewed. BS are all over the place. pt had some upper respiratory symptoms recently and is still very fatigued. discussed she could have possibly had covid since it is on the rise in the area again. discussed recent lab results. discussed kidney function and the fact that uncontrolled diabetes is affecting her kidneys and other organs. she states I will do better with my diet and manage my insulin a little better. Will repeat HGBA1C in May at next visit. pt to continue BS log. may consider referral to metals analyst at that visit. 2. Flank pain (R10.9: Unspecified abdominal pain) will do urinalysis in office today. u/a negative in office today. 3. BMI 39.0-39.9,adult (Z68.39: Body mass index [BMI] 39.0-39.9, adult) BMI education complete 4. Former smoker (Z87.891: Personal history of nicotine dependence) continue not smoking Follow-up No qualifying data available Problem List/Past Medical History Ongoing CKD (chronic kidney disease) Diabetic peripheral neuropathy Flank pain Gout Osteoarthritis Pure hypercholesterolemia Type 1 diabetes Urinary incontinence Vitamin D deficiency Wellness examination Historical No qualifying data Procedure/Surgical History Cataract surgery, section, History of coronary artery bypass grafting... Medications allopurinol 300 mg Tab, 300 mg= 1 tab(s), Oral, Daily aspirin 81 mg Oral EC Tab Basaglar KwikPen 100 units/mL subcutaneous solution, 50 unit(s), SubCutaneous, Daily, 2 refills carvedilol 25 mg Tab cholecalciferol 1000 intl units oral capsule, 25 mcg= 1 cap(s), Oral, Daily, 1 refills cholecalciferol 5000 intl units oral capsule, 125 mcg= 1 cap(s), Oral, Daily, 3 refills furosemide 40 mg Tab gabapentin 300 mg Cap insulin aspart 100 units/mL injectable solution, See Instructions, 3 refills Misc DME Prescription, See Instructions, 3 refills oxybutynin 10 mg ER Tab, 10 mg= 1 tab(s), Oral, Daily Plavix 75 mg Tab potassium chloride 10 mEq ER Tab rosuvastatin 5 mg Tab, 5 mg= 1 tab(s), Oral, Daily Allergies atorvastatin (Myalgia) pravastatin (Unknown) Social History Tobacco Former smoker, quit more than 30 days ago Tobacco Use:. Never Smokeless Tobacco Use:. Household tobacco concerns: No., 03/05/2023 Immunizations Vaccine Date Status Comments influenza virus vaccine, inactivated 07/03/2022 Recorded SARS-CoV-2 (COVID-19) [id number] 06/17/2022 Recorded 2023-02-10: TPV75 SARS-CoV-2 (COVID-19) mRNA BNT-162b2 vax 04/13/2021 Recorded 2023-02-10: TPV75 SARS-CoV-2 (COVID-19) mRNA BNT-162b2 vax 08/30/2020 Recorded 2023-02-10: TPV75 SARS-CoV-2 (COVID-19) mRNA BNT-162b2 vax 08/09/2020 Recorded 2023-02-10: TPV75 influenza virus vaccine, inactivated 07/01/2019 Recorded influenza virus vaccine, inactivated 07/14/2018 Recorded pneumococcal 23-valent vaccine 04/16/2018 Recorded influenza virus vaccine, inactivated 04/16/2018 Recorded influenza virus vaccine, inactivated 05/16/2017 Recorded pneumococcal 13-valent vaccine 10/30/2016 Recorded Normal [facility] Comment on above: Result Comment: Elec tronically Signed By: Maxine Sanchez\.mane\Date and Time Signed: 03/05/23 14:10 EDT Retail - Clinical Noteon Retail - Clinical Note [id number] #[id number] Normal [facility] Family Medicine Office/Clini c Noteon 02-11-2023 Family Medicine Office/Clinic Note HPI Staff Lexi is a 77 year old female presenting to [facility] Establish Care: History: Any previous diagnosis: acute systolic heart failure, CKD stage 4, Diabetic peripheral neuropathy, Vitamin D deficiency, Type 1 diabetes, gout, osteoarthritis, pure hypercholesterolemia History of seeing any specialist: Dr Echeverria [place] heart, Dr Zhang [place] specialist, Pain Management Dr Blake Baez hip injections, Dr Rust Reflector Driller And Deburrer When was your last doctors visit: Last provider: Any recent labs: 01/30/22 A1c 9.4 Health Maintenance UTD: Colonoscopy: aged out Mammogram: aged out Pelvic/Pap: aged out Acute: Current issues/complaints: Pt would like to discuss Incontinence currently is taking oxybutynin 5mg daily, pt knows she she has to go and is unable to stop flow. 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 Cardiovascular: no chest pain, no palpitations, yes edema. MARIE LE Neurologic: no headache, no dizziness, no numbness, no weakness. Physical Exam Vitals & Measurements HR: 80(Peripheral) RR: 18 BP: 128/88 SpO2: 98% HT: 55 in HT: 140.6 cm WT: 79.2 kg WT: 174.24 lb BMI: 40.06 General: alert, no acute distress ENMT: oral mucosa moist, no pharyngeal erythema or exudate Cardiovascular: regular rate and rhythm, normal peripheral perfusion Respiratory: Lungs CTA, respirations non labored Extremities: no deformity, no trauma, 1+ edema of MARIE LE Neurological: oriented x 4, LOC appropriate for age, CN II-XII intact, motor strength equal & normal bilaterally, speech normal Assessment/Plan 1. Wellness examination (Z00.00: Encounter for general adult medical examination without abnormal findings) pt presents today to establish care. is in need of refills and lab work. pt is doing well. states she feels like the oxybutinin is not helping as well with her incontinence. will increase dose. encouraged referral to urology. but pt is not interested in another specialist at this time. will refill all meds. all questions answered. labs drawn in office today. Ordered: oxybutynin, 10 mg = 1 tab(s), Oral, Daily, # 90 tab(s), Refills(s) 0, Pharmacy: [facility], 140.6, cm, 02/10/23 11:29:00 EDT, Height/Length Dosing, 79.2, kg, 02/10/23 11:29:00 EDT, Weight Dosing Automated Diff CBC w/ Auto Diff Comprehensive Metabolic Panel eGFR HgbA1c Lab Specimen Collect [id number] Lipid Panel Thyroid Stimulating Hormone Vitamin D 25 Hydroxy 2. BMI 40.0-44.9, adult (Z68.41: Body mass index [BMI] 40.0-44.9, adult) BMI education complete Ordered: oxybutynin, 10 mg = 1 tab(s), Oral, Daily, # 90 tab(s), Refills(s) 0, Pharmacy: [facility], 140.6, cm, 02/10/23 11:29:00 EDT, Height/Length Dosing, 79.2, kg, 02/10/23 11:29:00 EDT, Weight Dosing Lab Specimen Collect [id number] Vitamin D 25 Hydroxy 3. Former smoker (Z87.891: Personal history of nicotine dependence) continue not smoking Ordered: oxybutynin, 10 mg = 1 tab(s), Oral, Daily, # 90 tab(s), Refills(s) 0, Pharmacy: [facility], 140.6, cm, 02/10/23 11:29:00 EDT, Height/Length Dosing, 79.2, kg, 02/10/23 11:29:00 EDT, Weight Dosing Lab Specimen Collect [id number] Vitamin D 25 Hydroxy 4. Type 1 diabetes (E10.9: Type 1 diabetes mellitus without complications) HGBA1C drawn in office today Ordered: Misc Prescription, Misc DME Prescription, See Instructions, 100 strip(s), 3, True Metrix Test Strips Check AC&HS, [facility], [facility], 140.6, cm, 02/10/23 11:29:00 EDT, Height/Length Dosing, 79.2, kg, 02/10/23 11:29:00 EDT, Weight Dosing oxybutynin, 10 mg = 1 tab(s), Oral, Daily, # 90 tab(s), Refills(s) 0, Pharmacy: [facility], 140.6, cm, 02/10/23 11:29:00 EDT, Height/Length Dosing, 79.2, kg, 02/10/23 11:29:00 EDT, Weight Dosing 5. CKD (chronic kidney disease) (N18.9: Chronic kidney disease, unspecified) labs drawn in office today Ordered: oxybutynin, 10 mg = 1 tab(s), Oral, Daily, # 90 tab(s), Refills(s) 0, Pharmacy: [facility], 140.6, cm, 02/10/23 11:29:00 EDT, Height/Length Dosing, 79.2, kg, 02/10/23 11:29:00 EDT, Weight Dosing 6. Gout (M10.9: Gout, unspecified) allopurinal refilled Ordered: oxybutynin, 10 mg = 1 tab(s), Oral, Daily, # 90 tab(s), Refills(s) 0, Pharmacy: [facility], 140.6, cm, 02/10/23 11:29:00 EDT, Height/Length Dosing, 79.2, kg, 02/10/23 11:29:00 EDT, Weight Dosing 7. Pure hypercholesterolemia (E78.00: Pure hypercholesterolemia , unspecified) lipid panel gardenia in office today Ordered: oxybutynin, 10 mg = 1 tab(s), Oral, Daily, # 90 tab(s), Refills(s) 0, Pharmacy: [facility] (more content not included)... Normal [facility] Comment on above: Result Comment: Elec tronically Signed By: Maxine Sanchez\.br\Date and Time Signed: 02/11/23 10:50 EDT Ambulatory Visit Summaryon 0 02-10-2023 Ambulatory Visit Summary LEXI TATUM :1945 Visit Date:02/10/2023 Ambulatory Visit Instructions Your Diagnosis Wellness examination BMI 40.0-44.9, adult Former smoker Your Care Team Attending Physician - Maxine Sanchez Primary Care Physician - Maxine Sanchez This Is Your Medications List allopurinol (allopurinol 300 mg Tab) aspirin (aspirin 81 mg Oral EC Tab) carvedilol (carvedilol 25 mg Tab) cholecalciferol (cholecalciferol 1000 intl units oral capsule) clopidogrel (Plavix 75 mg Tab) furosemide (furosemide 40 mg Tab) gabapentin (gabapentin 300 mg Cap) insulin aspart (insulin aspart 100 units/mL injectable solution) insulin glargine (Basaglar KwikPen 100 units/mL subcutaneous solution) oxybutynin (oxybutynin 5 mg ER Tab) potassium chloride (potassium chloride 10 mEq ER Tab) rosuvastatin (rosuvastatin 5 mg Tab) Procedures Performed Cataract surgery, section, History of coronary artery bypass grafting... Discharge Vitals Heart Rate (Peripheral) 80 Respiratory Rate 18 Blood Pressure 128/88 Height 140.6 cm Height 55 in Weight 79.2 kg Weight 174.24 lb BMI 40.06 What to do next Scheduled Follow-Up Appointments Friday 1:00 PM EDT Where: [facility] Normal [facility] Auto Diffon 02-10-2023 Basophils/100 WBC (Bld) 0.4 % Normal 0.0-2.0 [facility] Comment on above: Order Comment: Order Added by Discern Expert. Performed By: #### 2 [id number], [id number], [id number], [id number], [id number], [id number] ####[facility] [id number] [place] [address] Basophils/Leukocyt es Auto (Bld) [Pure # fraction] 0.0 E9/L Normal 0.0-0.2 [facility] Comment on above: Order Comment: Order Added by Discern Expert. Performed By: #### 2 [id number], [id number], [id number], [id number], [id number], [id number], [id number], [id number] ####[facility] [id number] [place] [address] Eosinophils/100 WBC (Bld) 2.6 % Normal 0.0-8.0 [facility] Comment on above: Order Comment: Order Added by Discern Expert. Performed By: #### 2 [id number], [id number], [id number], [id number], 7639546, [id number], [id number], [id number] ####[place] [address] [place] [address] Eosinophils/Leukoc ytes Auto (Bld) [Pure # fraction] 0.2 E9/L Normal 0.0-0.5 [facility] Comment on above: Order Comment: Order Added by Discern Expert. Performed By: #### 2 484409, [id number], [id number], [id number], 0610135, [id number], [id number], [id number] ####[place] [place] [address] Lymphocytes/100 WBC (Bld) 23.0 % Normal 14.0-50.0 [facility] Comment on above: Order Comment: Order Added by Discern Expert. Performed By: #### 2 [id number], [id number], [id number], [id number], 6747514, 5443277, [id number], [id number] ####[address] [address] Lymphocytes/Leukoc ytes Auto (Bld) [Pure # fraction] 1.8 E9/L Normal 1.0-4.0 [facility] Comment on above: Order Comment: Order Added by Discern Expert. Performed By: #### 2 659939, [id number], 4895230, [id number], 2193829, 6838626, [id number], 2445946 ####[address] [place] [address] Monocytes/100 WBC (Bld) 6.6 % Normal 4.0-14.0 [facility] Comment on above: Order Comment: Order Added by Discern Expert. Performed By: #### 2 914450, [id number], 0603281, [id number], 9024726, [id number], [id number], [id number] ####[address] [place] [address] Monocytes/Leukocyt es Auto (Bld) [Pure # fraction] 0.5 E9/L Normal 0.2-1.0 [facility] Comment on above: Order Comment: Order Added by Discern Expert. Performed By: #### 2 [id number], [id number], 6906071, [id number], 6662424, 0473081, [id number], [id number] ####[address] [place] [address] Neutrophils/100 WBC (Bld) 67.4 % Normal 36.0-75.0 [facility] Comment on above: Order Comment: Order Added by Discern Expert. Performed By: #### 2 110259, [id number], 7353944, [id number], 9650260, 9944198, [id number], [id number] ####[address] [address] Neutrophils/Leukoc ytes Auto (Bld) [Pure # fraction] 5.1 E9/L Normal 2.0-7.5 [facility] Comment on above: Order Comment: Order Added by Discern Expert. Performed By: #### 2 471274, 170252430, 7441737, 76350372, 4633548, 9379455, 305968400, 9041849 ####[address] [address] CBC w/ Auto Diffon 3 Erythrocyte distribution width (RBC) [Ratio] 16.0 % High 10.9-14.2 [facility] Comment on above: Performed By: #### 2 896151, 167187847, 0992122, 34869148, 8354657, 1628183, 581619336, 9221964 ####[address] [place] [address] Hematocrit (Bld) [Volume fraction] 40.5 % Normal 34.0-46.0 [facility] Comment on above: Performed By: #### 2 580830, 906275402, 6472683, 33120657, 9881078, 1801017, 517481491, 8317751 ####[facility] [address] [place] [address] Hemoglobin (Bld) [Mass/Vol] 13.5 g/dL Normal 12.0-16.0 [facility] Comment on above: Performed By: #### 2 025064, 567332289, 6902060, 96678004, 6358070, 2498631, 197133154, 4044340 ####[address] [address] MCH (RBC) [Entitic mass] 31.7 pg Normal 27.0-34.0 [facility] Comment on above: Performed By: #### 2 369045, 675346011, 8387806, 09098231, 3254604, 0164472, 791397285, 7739858 ####[address] [address] MCHC (RBC) [Mass/Vol] 33.3 g/dL Normal 31.4-36.0 [facility] Comment on above: Performed By: #### 2 779905, 563168776, 4969984, 17018416, 9789056, 4486050, 993755383, 0189135 ####[address] [address] MCV (RBC) [Entitic vol] 95.4 fL Normal 80.0-100.0 [facility] Comment on above: Performed By: #### 2 633445, 281691752, 2002793, 09474079, 4043605, 3635402, 460677646, 8594471 ####[address] [address] Platelet mean volume (Bld) [Entitic vol] 10.1 fL Normal 6.4-10.8 [facility] Comment on above: Performed By: #### 2 744570, 884891004, 1504191, 38249893, 5824425, 4042227, 446189554, 7899495 ####[facility] [address] [place] [address] Platelets (Bld) [#/Vol] 192.0 E9/L Normal 150.0-500.0 [facility] Comment on above: Performed By: #### 2 133607, 890835640, 6228610, 00339006, 8612406, 2076605, 014539115, 5560105 ####[facility] [address] [place] [address] RBC (Bld) [#/Vol] 4.2 E12/L Low 4.3-5.9 [facility] Comment on above: Performed By: #### 2 852940, 574763097, 3551499, 68256990, 5853948, 9082490, 125121760, 3895551 ####[facility] [address] [place] [address] WBC corrected for nucl RBC Auto (Bld) [#/Vol] 7.6 E9/L Normal 4.0-11.0 [facility] Comment on above: Performed By: #### 2 630551, 221225020, 5060089, 89398361, 9051764, 9057134, 934742094, 5951145 ####[facility] [address] [place] [address] CHEMISTRYOrdered By: SYSTEM SYSTEM on 02-10-2023 25-hydroxyvitamin D3 [Mass/Vol] 52.9 ng/mL Normal 30.0 - 100.0 ng/mL [facility] Remisol Albumin [Mass/Vol] 3.6 g/dL Normal 3.3 - 5.0 gm/dL [facility] C Remisol Albumin/Globulin [Mass ratio] 1.0 {ratio} Low 1.1 - 2.2 [facility] Remisol ALP [Catalytic activity/Vol] 57 [iU]/d Normal 21 - 98 Int._Unit/L [facility] Remisol ALT No additional P-5'-P [Catalytic activity/Vol] 12 [iU]/d Normal 6 - 46 Int._Unit/L [facility] Remisol Anion gap [Moles/Vol] 15 mmol/L Normal 6 - 16 mEq/L [facility] AST [Catalytic activity/Vol] 18 [iU]/d Normal 5 - 43 Int._Unit/L [facility] Bilirubin [Mass/Vol] 0.5 mg/dL Normal 0.0 - 1.1 mg/dL [facility]isol Calcium [Mass/Vol] 9.8 mg/dL Normal 8.9 - 11.1 mg/dL [facility] Chloride [Moles/Vol] 98 mmol/L Low 101 - 111 mmol/L [facility] Cholesterol [Mass/Vol] 196 mg/dL Normal 120 - 200 mg/dL [facility] Cholesterol in HDL [Mass/Vol] 50 mg/dL Invalid Interpretation Code [facility] Cholesterol in LDL [Mass/Vol] 106 mg/dL Normal <=129mg/dL [facility] Cholesterol in VLDL [Mass/Vol] 44 mg/dL High 7 - 40 mg/dL [facility] CO2 [Moles/Vol] 28 mmol/L Normal 21 - 31 mmol/L [facility] Creatinine [Mass/Vol] 1.4 mg/dL High 0.5 - 1.3 mg/dL [facility] Remisol GFR/1.73 sq M.predicted among non-blacks MDRD (S/P/Bld) [Vol rate/Area] 39 mL/min/1.73 m2 Low >=59mL/min/1.73 m2 [facility] S Globulin (S) [Mass/Vol] 3.6 g/dL Normal 1.4 - 4.0 gm/dL [facility] Remisol Glucose [Mass/Vol] 235 mg/dL High 55 - 199 mg/dL [facility] Potassium [Moles/Vol] 4.0 mmol/L Normal 3.5 - 5.3 mmol/L [facility] Remisol Protein [Mass/Vol] 7.2 g/dL Normal 6.0 - 7.8 gm/dL [facility] Remisol Sodium [Moles/Vol] 137 mmol/L Normal 135 - 145 mmol/L [facility]isol Triglyceride [Mass/Vol] 218 mg/dL High <=149mg/dL [facility] Remisol TSH Qn 1.79 m[IU]/L Normal 0.34 - 5.60 mcIU/mL [facility] C Remisol Urea nitrogen [Mass/Vol] 23 mg/dL High 5 - 21 mg/dL [facility] Remisol Urea nitrogen/Creatinin e [Mass ratio] 16 mg/mg Normal 10 - 20 [facility] Remisol CHEMISTRYOrdered By: Natalio grover on 02-10-2023 HbA1c (Bld) [Mass fraction] 10.9 % High <=5.9% [facility] ChemAutoSS CMPon 02-10-2023 Albumin [Mass/Vol] 3.6 g/dL Normal 3.3-5.0 [facility] Comment on above: Performed By: #### 2 607879, 220336414, 6824585, 39107722, 2104141, 6510418, 526006075, 7725471 ####[facility] [address] [place] [address] Albumin/Globulin (S) [Mass conc ratio] 1.0 Low 1.1-2.2 [facility] Comment on above: Performed By: #### 2 624472, 157366260, 6554786, 00727188, 4083834, 1072315, 987479439, 4855781 ####[facility] [address] [place] [address] ALP [Catalytic activity/Vol] 57 Int._Unit/L Normal 21-98 [facility] Comment on above: Performed By: #### 2 011066, 538498741, 1215729, 13378000, 6997348, 1839026, 968414812, 6606156 ####[facility] [address] [place] [address] ALT No additional P-5'-P [Catalytic activity/Vol] 12 Int._Unit/L Normal 6-46 [facility] Comment on above: Performed By: #### 2 269162, 401280781, 0374381, 57042921, 8860043, 4800969, 468175942, 4486939 ####[facility] [address] [place] [address] Anion gap [Moles/Vol] 15 mmol/L Normal 6-16 [facility] Comment on above: Performed By: #### 2 442974, 042112151, 5442838, 27733721, 0255524, 5921066, 244777532, 9028924 ####[facility] [address] [place] [address] AST [Catalytic activity/Vol] 18 Int._Unit/L Normal 5-43 [facility] Comment on above: Performed By: #### 2 132679, 849490376, 1653034, 45735364, 1732167, 9546617, 815462138, 7089123 ####[facility] [address] [place] [address] Bilirubin [Mass/Vol] 0.5 mg/dL Normal 0.0-1.1 [facility] Comment on above: Performed By: #### 2 959236, 633370068, 6051477, 05504420, 5194075, 8054363, 026964554, 0164198 ####[facility] [address] [place] [address] Calcium [Mass/Vol] 9.8 mg/dL Normal 8.9-11.1 [facility] Comment on above: Performed By: #### 2 330031, 427012390, 3117020, 91017410, 8642144, 4322303, 294407706, 8517186 ####[facility] [address] [place] [address] Chloride [Moles/Vol] 98 mmol/L Low 101-111 [facility] Comment on above: Performed By: #### 2 041837, 893214149, 7531780, 62694354, 3832047, 8614551, 892534207, 6967353 ####[facility] [address] [place] [address] CO2 [Moles/Vol] 28 mmol/L Normal 21-31 [facility] Comment on above: Performed By: #### 2 482730, 010994950, 6481686, 35262721, 5238033, 5338615, 113812448, 7793274 ####[facility] [address] [place] [address] Creatinine [Mass/Vol] 1.4 mg/dL High 0.5-1.3 [facility] Comment on above: Performed By: #### 2 887120, 506425134, 5816299, 14828558, 0990923, 7980388, 681220792, 9453992 ####[facility] [address] [place] [address] Globulin (S) [Mass/Vol] 3.6 g/dL Normal 1.4-4.0 [facility] Comment on above: Performed By: #### 2 550190, 900576775, 5678391, 29057990, 6720295, 1367883, 921058589, 2743731 ####[facility] [address] [place] [address] Glucose [Mass/Vol] 235 mg/dL High 55-199 [facility] Comment on above: Result Comment: If t his glucose result represents a fasting glucose, interpretation should refer to the following reference range: 55-99 mg/dL Performed By: #### 2 403936, 992709656, 1370410, 72818094, 2656350, 2224748, 292761852, 6215932 ####[facility] [address] [place] [address] Potassium [Moles/Vol] 4.0 mmol/L Normal 3.5-5.3 [facility] Comment on above: Performed By: #### 2 484212, 432086397, 1297118, 32362256, 7757501, 2474158, 105340123, 8585484 ####[facility] [address] [place] [address] Protein [Mass/Vol] 7.2 g/dL Normal 6.0-7.8 [facility] Comment on above: Performed By: #### 2 101919, 352474827, 4909768, 61107146, 6105168, 4201157, 443910369, 7780439 ####[facility] [address] [place] [address] Sodium [Moles/Vol] 137 mmol/L Normal 135-145 [facility] Comment on above: Performed By: #### 2 345531, 694736334, 8616632, 60074906, 7679930, 0574598, 769116189, 2776409 ####[facility] [address] [place] [address] Urea nitrogen [Mass/Vol] 23 mg/dL High 5-21 [facility] Comment on above: Performed By: #### 2 581075, 876016417, 4819800, 18503895, 1401868, 8899304, 796179755, 0420223 ####[facility] [address] [place] [address] Urea nitrogen/Creatinin e [Mass ratio] 16 No Units Normal 10-20 [facility] Comment on above: Performed By: #### 2 727673, 417615997, 9087058, 81315164, 3245652, 0381091, 665633073, 6252715 ####[facility] [address] [place] [address] HEMATOLOGYOrdered By: SYSTEM SYSTEM on 02-10-2023 Basophils/100 WBC (Bld) 0.4 % Normal 0.0 - 2.0 % [facility] HemeAutoSS Basophils/Leukocyt es Auto (Bld) [Pure # fraction] 0.0 E9/L Normal 0.0 - 0.2 E9/L [facility] HemeAutoSS Eosinophils/100 WBC (Bld) 2.6 % Normal 0.0 - 8.0 % [facility] HemeAutoSS Eosinophils/Leukoc ytes Auto (Bld) [Pure # fraction] 0.2 E9/L Normal 0.0 - 0.5 E9/L [facility] HemeAutoSS Lymphocytes/100 WBC (Bld) 23.0 % Normal 14.0 - 50.0 % [facility] HemeAutoSS Lymphocytes/Leukoc ytes Auto (Bld) [Pure # fraction] 1.8 E9/L Normal 1.0 - 4.0 E9/L [facility] HemeAutoSS Monocytes/100 WBC (Bld) 6.6 % Normal 4.0 - 14.0 % [facility] HemeAutoSS Monocytes/Leukocyt es Auto (Bld) [Pure # fraction] 0.5 E9/L Normal 0.2 - 1.0 E9/L [facility] HemeAutoSS Neutrophils/100 WBC (Bld) 67.4 % Normal 36.0 - 75.0 % [facility] HemeAutoSS Neutrophils/Leukoc ytes Auto (Bld) [Pure # fraction] 5.1 E9/L Normal 2.0 - 7.5 E9/L [facility] HemeAutoSS HEMATOLOGYOrdered By: Natalio Guerrero on 02-10-2023 Erythrocyte distribution width (RBC) [Ratio] 16.0 % High 10.9 - 14.2 % [facility] HemeAutoSS Hematocrit (Bld) [Volume fraction] 40.5 % Normal 34.0 - 46.0 % [facility] HemeAutoSS Hemoglobin (Bld) [Mass/Vol] 13.5 g/dL Normal 12.0 - 16.0 gm/dL [facility] HemeAutoSS MCH (RBC) [Entitic mass] 31.7 pg Normal 27.0 - 34.0 pg [facility] HemeAutoSS MCHC (RBC) [Mass/Vol] 33.3 g/dL Normal 31.4 - 36.0 gm/dL [facility] HemeAutoSS MCV (RBC) [Entitic vol] 95.4 fL Normal 80.0 - 100.0 fL [facility] HemeAutoSS Platelet mean volume (Bld) [Entitic vol] 10.1 fL Normal 6.4 - 10.8 fL [facility] HemeAutoSS Platelets (Bld) [#/Vol] 192.0 E9/L Normal 150.0 - 500.0 E9/L [facility] HemeAutoSS RBC (Bld) [#/Vol] 4.2 E12/L Low 4.3 - 5.9 E12/L [facility] HemeAutoSS WBC corrected for nucl RBC Auto (Bld) [#/Vol] 7.6 E9/L Normal 4.0 - 11.0 E9/L [facility] HemeAutoSS [id number] 02-10-2023 HbA1c (Bld) [Mass fraction] 10.9 % High <=5.9 [facility] Comment on above: Performed By: #### 2 847295, 971328413, 5659302, 31694602, 3194661, 6951446, 824361796, 5996167 ####[facility] [address] [address] Lipid Panelon 02-10-2023 Cholesterol [Mass/Vol] 196 mg/dL Normal 120-200 [facility] Comment on above: Performed By: #### 2 985660, 538310762, 5260195, 13762899, 9093866, 2645693, 842836490, 9041938 ####[facility] [address] [place] [address] Cholesterol in HDL [Mass/Vol] 50 mg/dL Invalid Interpretation Code [facility] Comment on above: Result Comment: HDL > or equal to 60 mg/dL: Low cardiovascular risk HDL < 40 mg/dL : High cardiovascular risk Performed By: #### 2 784098, 724678838, 5650218, 89801483, 0408688, 0723493, 178515569, 3188647 ####[facility] [address] [place] [address] Cholesterol in LDL [Mass/Vol] 106 mg/dL Normal <=129 [facility] Comment on above: Performed By: #### 2 015046, 045782797, 5072627, 53329768, 7003441, 0739161, 106920113, 0547105 ####[facility] [address] [place] [address] Cholesterol in VLDL [Mass/Vol] 44 mg/dL High 7-40 [facility] Comment on above: Performed By: #### 2 997286, 646500381, 4711332, 21912700, 6769736, 3936352, 604332008, 3471541 ####[facility] [address] [address] Triglyceride [Mass/Vol] 218 mg/dL High <=149 [facility] Comment on above: Performed By: #### 2 939523, 534955084, 7598185, 72648119, 3159886, 9052124, 419489404, 6890909 ####[facility] [address] [place] [address] TSHon 02-10-2023 TSH Qn 1.79 m[IU]/L Normal 0.34-5.60 [facility] Comment on above: Performed By: #### 2 114799, 242903982, 1495296, 55481237, 4549836, 6083663, 197321782, 2918457 ####[facility] [address] [place] [address] Vitamin D 25 Hydroxyon 02-10 25-hydroxyvitamin D3 [Mass/Vol] 52.9 ng/mL Normal 30.0-100.0 [facility] Comment on above: Result Comment: Vit rosario D deficiency has been defined as a level of serum 25-OH vitamin D less than 20 ng/mL (1,2) by the [employer] and an Endocrine Society practice guideline. The Endocrine Society further defined vitamin D insufficiency as a level between 21 and 29 ng/mL (2). 1. IOM ([place] of [employer]). 2010. Dietary reference intakes for calcium and D. [place]: The National Academies Press. 2. Laney MF, Abhijeet NC, Stacey CHATMAN, et al. Evaluation, treatment, and prevention of vitamin D deficiency: an Endocrine Society clinical practice guideline. JCEM. 2010; 96 (7):1911-30. Performed By: #### 2 337924, 729133349, 5173476, 38566766, 8180131, 4757548, 979195698, 0973036 ####[facility] [address] [place] [address] eGFRon 02-10-2023 GFR/1.73 sq M.predicted among non-blacks MDRD (S/P/Bld) [Vol rate/Area] 39 mL/min/1.73 m2 Low >=59 [facility] Comment on above: Order Comment: Order added by Discern Expert. Result Comment: Rfid Specialist saba kidney disease could be indicated at eGFR's of less than 60 mL/min/1.73m2. Kidney failure is indicated at less than 15 mL/min/1.73m2. Performed By: #### 2 771811, 843762847, 9536169, 54209334, 7455094, 1914506, 903984810, 2186134 ####[address] [place] [address] XR hip LT 1Von 12-04-2022 XR hip LT 1V [address] [address] XRay Report Signed Patient: Lexi Spence MR#: [id number] : 1945 Acct:[id number] Age/Sex: 77 / F ADM Date: 12/04/22 Loc: [facility] Room: Type: [facility] Attending Dr: Da Lozano II, MD Copies to: Da Lozano MD Ordering Provider: Da Lozano MD Date of Service: 12/04/22 XR/XR hip LT 1V: Left hip pain CROSSTABLE LATERAL LEFT HIP -1 view: CLINICAL HISTORY: Chronic left hip pain. COMPARISON: 11/12/2022 Crosstable lateral view of the left hip was obtained. No obvious acute fracture or dislocation is identified. Evaluation of the degenerative changes at the hip on the comparison study is limited by positioning. No soft tissue abnormalities are present. XR/XR hip LT 1V IMPRESSION: NO ACUTE BONY FINDINGS WITHIN LIMITS OF THIS SINGLE VIEW. Impression dictated by: Zayra Juarez M.D.12/04/2022 6:42 PM Dictation Location: [place] [address] Transcribed By: [facility] 12/04/221841 Dictated By: Zayra Juarez MD 12/04/221840 Signed By: 12/04/221841 Normal [facility] XR hip LT min 2V(w/wo pelvis )*on 11-12-2022 XR hip LT min 2V(w/wo pelvis)* [facility] [address] [address] XRay Report Signed Patient: Lexi Spence MR#: [id number] : 1945 Acct:[id number] Age/Sex: 77 / F ADM Date: 11/11/22 Loc: [facility] Room: Type: [facility] Attending Dr: Ross Colmenares MD Copies to: Ross Colmenares MD Ordering Provider: Ross Colmenares MD Date of Service: 11/11/22 XR/XR lumbar spine AP/LAT/FLX/EXT: Other spondylosis with radiculopathy, lumbar region ([id number]) XR/XR hip LT min 2V(w/wo pelvis)*: PAIN LUMBAR SPINE - 7 views left hip 2 views CLINICAL HISTORY: Low back pain radiating to left hip. COMPARISON: None FINDINGS: Lumbar spine: Vertebral body heights appear maintained. Facet joint degenerative changes with 3 mm of anterolisthesis of L4 and L5 and mild disc height loss. No pathological motion on flexion or extension views. Left hip: Evaluation is suboptimal due to body habitus. Severe degenerative changes of the left hip without acute bony process. XR/XR lumbar spine AP/LAT/FLX/EXT IMPRESSION: LUMBAR SPINE DEMONSTRATES FACET JOINT DEGENERATIVE CHANGES WITH 3 MM OF ANTEROLISTHESIS OF L4 AND L5 WITH MILD DISC HEIGHT LOSS. LEFT HIP DEMONSTRATES SEVERE DEGENERATIVE CHANGE.. Impression dictated by: Earnest Iraheta Jr., D.O.11/12/2022 12:06 PM Dictation Location: [place] [address] Transcribed By: [facility] 11/12/22 1206 Dictated By: Earnest Iraheta Jr, DO 11/12/22 1159 Signed By: 11/12/22 1206 [facility] Office Visit (Cardiology)on 07-25-2022 Follow-up visit Diagnoses/Problems Assessed S/P CABG x 3 (V45.81) (Z95.1) Ischemic cardiomyopathy (414.8) (I25.5) Hyperlipidemia (272.4) (E78.5) HTN (hypertension) (401.9) (I10) History of angioplasty (V45.89) (Z98.62) History of Dyslipidemia (272.4) (E78.5) CAD, multiple vessel (414.00) (I25.10) History of AL (myocardial infarction) (412) (I25.2) Statin intolerance (995.27) (Z78.9) Type 2 diabetes mellitus (250.00) (E11.9) Class 1 obesity with body mass index (BMI) of 34.0 to 34.9 in adult (278.00,V85.34) (E66.9,Z68.34) Former smoker (V15.82) (Z87.891) Quit 25+ years ago Orders CAD, multiple vessel, HTN (hypertension), S/P CABG x 3 Renew: Metoprolol Tartrate 25 MG Oral Tablet; TAKE 1 TABLET Every twelve hours Class 1 obesity with body mass index (BMI) of 34.0 to 34.9 in adult Healthy Weight Tips; Status:Complete - Retrospective Authorization; Done: 25Jul2022 Some eating tips that can help you lose weight.; Status:Complete - Retrospective Authorization; Done: 25Jul2022 History of AL (myocardial infarction), HTN (hypertension) Renew: Carvedilol 25 MG Oral Tablet; Take 1 tablet twice daily Occlusion and stenosis of right carotid artery, PVD (peripheral vascular disease) Renew: Clopidogrel Bisulfate 75 MG Oral Tablet; Take 1 tablet daily SocHx: Former smoker Tobacco Use Screening; Status:Complete; Done: 25Jul2022 Unlinked Stop: Gabapentin 100 MG TABS Patient Instructions Follow up in 1 year. Chief Complaint LEXI CASTILLO is being seen for overdue needs rx. History of Present Illness Patient returns in follow-up of problems as noted. She is doing well. She has no other symptoms of coronary disease that preceded her original diagnosis and subsequent bypass surgery. I cannot elicit any angina CHF or arrhythmia complaints. Her hypertension is well controlled as are lipids. Body mass index could be improved upon the merits of diet exercise and weight loss and their favorable impact on her diabetes and hypertension were explained. Specifically advised her to avoid manmade sugars and/or flour products. She otherwise is doing well because of this we suggest no change and follow-up as noted Active Problems Problems Abnormal EKG (794.31) (R94.31) Bruit of right carotid artery (785.9) (R09.89) CAD, multiple vessel (414.00) (I25.10) Class 1 obesity with body mass index (BMI) of 34.0 to 34.9 in adult (278.00,V85.34) (E66.9,Z68.34) Dizziness (780.4) (R42) Edema (782.3) (R60.9) Former smoker (V15.82) (Z87.891) Quit 25+ years ago History of angioplasty (V45.89) (Z98.62) History of AL (myocardial infarction) (412) (I25.2) HTN (hypertension) (401.9) (I10) Hyperkalemia (276.7) (E87.5) Hyperlipidemia (272.4) (E78.5) Ischemic cardiomyopathy (414.8) (I25.5) Leg pain (729.5) (M79.606) Mitral regurgitation (424.0) (I34.0) Occlusion and stenosis of right carotid artery (433.10) (I65.21) Pre-operative cardiovascular examination (V72.81) (Z01.810) PVD (peripheral vascular disease) (443.9) (I73.9) S/P CABG x 3 (V45.81) (Z95.1) SOB (shortness of breath) on exertion (786.05) (R06.02) Statin intolerance (995.27) (Z78.9) Type 2 diabetes mellitus (250.00) (E11.9) Past Medical History Problems History of Dyslipidemia (272.4) (E78.5) Resolved Date: 25 Jul 2022 Current Meds Medication NameInstruction Allopurinol 300 MG Oral TabletTAKE ONE TABLET BY MOUTH ONCE DAILY Aspirin Low Dose 81 MG Oral Tablet Delayed ReleaseTAKE ONE TABLET BY MOUTH ONCE DAILY Basaglar KwikPen 100 UNIT/ML Subcutaneous Solution Pen-injectorINJECT 50 UNITS AT BEDTIME Carvedilol 25 MG Oral TabletTake 1 tablet twice daily Furosemide 40 MG Oral TabletTake one tablet daily in the morning Gabapentin 100 MG TABSTAKE 1 TABLET 3 TIMES DAILY. Gabapentin 300 MG Oral CapsuleTAKE ONE CAPSULE BY MOUTH TWICE A DAY Metoprolol Tartrate 25 MG Oral TabletTAKE 1 TABLET Every twelve hours NovoLOG FlexPen 100 UNIT/ML Subcutaneous Solution Pen-injector Oxybutynin Chloride ER 5 MG Oral Tablet Extended Release 24 HourTAKE ONE TABLET BY MOUTH IN THE MORNING Potassium Chloride ER 10 MEQ Oral Tablet Extended Release Rosuvastatin Calcium 5 MG Oral TabletTAKE ONE TABLET BY MOUTH AT BEDTIME Allergies Medication WILLIAMS Inhibitors Hyperkalemia; RENAL INSUFF.; Recorded By: Jane Way; 07/12/2021 2:24:53 PM atorvastatin Myalgia; Recorded By: Jane Way; 07/12/2021 2:24:53 PM spironolactone Hyperkalemia; RENAL INSUFF.; Recorded By: Jane Way; 07/12/2021 2:24:53 PM Statins Myalgia; Recorded By: Jane Way; 07/12/2021 2:24:53 PM Social History Problems Daily caffeine consumption, 2-3 servings a day coffee occasionally soda, tea Former smoker (V15.82) (Z87.891) Quit 25+ years ago No illicit drug use Occasional alcohol use Review of Systems Constitutional: not feeling tired. Cardiovascular: no intermittent leg claudication and as noted in HPI. Respiratory: no cough and no shortness of breath. Gastrointe (more content not included)... Normal Cell [employer] Tobacco Screening.on 023 Adult depression screening assessment No [facility] 250 DO Work Phone: Fall risk assessment a) No falls within the last year [facility] 250 DO Work Phone: Tobacco use status CPHS b) No [facility] 250 DO Work Phone: CBC AUTO DIFFon 01-30-2022 BASO # 0.0 103/ul Normal 0.0-0.1 [facility] Comment on above: Performed By: #### C BC #### [facility] [address] [place] [address] Dr. Yarely Roe Basophils/100 WBC (Bld) 0.4 % Normal 0.2-2.0 [facility] Comment on above: Performed By: #### C BC #### [facility] [address] [place] [address] [address] Yarely Roe EO # 0.2 103/ul Normal 0.0-0.7 [facility] Comment on above: Performed By: #### C BC #### [facility] [address] [place] [address] Dr. Yarely Roe Eosinophils/100 WBC (Bld) 2.3 % Normal 0.9-7.0 [facility] Comment on above: Performed By: #### C BC #### [facility] [address] [place] [address] Dr. Yarely Roe Erythrocyte distribution width (RBC) [Ratio] 14.8 % Normal 11.0-15.0 [facility] Comment on above: Performed By: #### C BC #### [facility] [address] [place] [address] Dr. Yarely Roe Hematocrit (Bld) [Volume fraction] 42.0 % Normal 36.0-48.0 [facility] Comment on above: Performed By: #### C BC #### [facility] [address] [place] [address] Dr. Yarely Roe Hemoglobin (Bld) [Mass/Vol] 13.7 g/dL Normal 12.0-16.0 [facility] Comment on above: Performed By: #### C BC #### [facility] [address] [place] [address] Dr. Yarely Roe IG # 0.03 [id number]/ul Normal 0.00-0.03 [facility] Comment on above: Performed By: #### C BC #### [facility] [address] [place] [address] Dr. Yarely Roe IG % 0.4 % Normal 0.0-0.5 [facility] Comment on above: Performed By: #### C BC #### [facility] [address] [place] [address] Dr. Yarely Roe LYMPH # 1.7 103/ul Normal 1.2-3.8 [facility] Comment on above: Performed By: #### C BC #### [facility] [address] [place] [address] Dr. Yarely Roe Lymphocytes/100 WBC (Bld) 20.7 % Normal 20.5-60.0 [facility] Comment on above: Performed By: #### C BC #### [facility] [address] [place] [address] Dr. Yarely Roe MANUAL DIFF REQ NO Normal [facility] Comment on above: Performed By: #### C BC #### [facility] [address] [place] [address] Dr. Yarely Roe MCH (RBC) [Entitic mass] 31.9 pg Normal 26.7-34.0 [facility] Comment on above: Performed By: #### C BC #### [facility] [address] [place] [address] Dr. Yarely Roe MCHC (RBC) [Mass/Vol] 32.6 g/dL Normal 29.9-35.2 [facility] Comment on above: Performed By: #### C BC #### [facility] [address] [place] [address] Dr. Yarely Roe MCV (RBC) [Entitic vol] 97.7 fL Normal 81.0-99.0 [facility] Comment on above: Performed By: #### C BC #### [facility] [address] [place] [address] Dr. Yarely Roe MONO # 0.5 103/ul Normal 0.3-0.8 [facility] Comment on above: Performed By: #### C BC #### [facility] [address] [place] [address] Dr. Yarely Roe Monocytes/100 WBC (Bld) 5.9 % Normal 1.7-12.0 [facility] Comment on above: Performed By: #### C BC #### [facility] [address] [place] [address] Dr. Yarely Roe NEUT # 5.7 103/ul Normal 1.4-6.5 [facility] Comment on above: Performed By: #### C BC #### [facility] [address] [place] [address] Dr. Yarely Roe Neutrophils/100 WBC (Bld) 70.3 % Normal 43.0-75.0 [facility] Comment on above: Performed By: #### C BC #### [facility] [address] [place] [address] Dr. Yarely Roe Platelet mean volume (Bld) [Entitic vol] 11.0 fL Normal 9.5-13.5 [facility] Comment on above: Performed By: #### C BC #### [facility] [address] [place] [address] Dr. Yarely Roe PLT 196 103/ul Normal 150-450 [facility] Comment on above: Performed By: #### C BC #### [facility] [address] [place] [address] Dr. Yarely Roe RBC 4.30 106/ul Normal 4.20-5.40 [facility] Comment on above: Performed By: #### C BC #### [facility] [address] [place] [address] Dr. Yarely Roe WBC 8.1 103/ul Normal 4.0-11.0 [facility] Comment on above: Performed By: #### C BC #### [facility] [address] [place] [address] Dr. Yarely Roe GLYCOHEMOGLOBIN A1Con 2021 ADA RECOMMENDATION SEE BELOW Normal [facility] Comment on above: Result Comment: ADA RECOMMENDED LIMIT 4.0 - 6.0 ADA THERAPEUTIC TARGET < 7.0 ACTION SUGGESTED > 7.0 Performed By: #### A 1C #### [facility] [address] [place] [address] Dr. Yarely Roe Glucose [Mass/Vol] 223 mg/dL Normal [facility] Comment on above: Performed By: #### A 1C #### [facility] [address] [place] [address] Dr. Yarely Roe HbA1c (Bld) [Mass fraction] 9.4 % Critically high 4.5-6.2 [facility] Comment on above: Performed By: #### A 1C #### [facility] [address] [place] [address] Dr. Yarely Roe PROF CHEM 8 (BAS METB)on Anion gap [Moles/Vol] 13.4 mmol/L Normal [facility] Comment on above: Performed By: #### B MP #### [facility] [address] [address] [address] Yarely Roe Calcium [Mass/Vol] 9.5 mg/dL Normal 8.5-10.1 [facility] Comment on above: Performed By: #### B MP #### [facility] [address] [address] [address] Yarely Roe Chloride [Moles/Vol] 101 mmol/L Normal 98-107 [facility] Comment on above: Performed By: #### B MP #### [facility] [address] [address] [address] Yarely Roe CO2 [Moles/Vol] 28.6 mmol/L Normal 21.0-32.0 [facility] Comment on above: Performed By: #### B MP #### [facility] [address] [place] [address] Dr. Yarely Roe Creatinine [Mass/Vol] 1.46 mg/dL Critically high 0.55-1.02 [facility] Comment on above: Performed By: #### B MP #### [facility] [address] [place] [address] Dr. Yarely Roe EGFR-AF CITIZEN [place] 42 mL/min/1.73m2 Critically low >=60 [facility] Comment on above: Performed By: #### B MP #### [facility] [address] [place] [address] Dr. Yarely Roe EGFR-NON AF CITIZEN OF [place] 35 mL/min/1.73m2 Critically low >=60 [facility] Comment on above: Performed By: #### B MP #### [facility] [address] [address] [address] Yarely Roe Glucose [Mass/Vol] 288 mg/dL Critically high 74-106 [facility] Comment on above: Performed By: #### B MP #### [facility] [address] [address] [address] Yarely Roe Potassium [Moles/Vol] 4.0 mmol/L Normal 3.5-5.1 [facility] Comment on above: Performed By: #### B MP #### [facility] [address] [address] [address] Yarely Roe Sodium [Moles/Vol] 139 mmol/L Normal 136-145 [facility] Comment on above: Performed By: #### B MP #### [facility] [address] [place] [address] Dr. Yarely Roe Urea nitrogen [Mass/Vol] 27.0 mg/dL Critically high 7.0-18.0 [facility] Comment on above: Performed By: #### B MP #### [facility] [address] [place] [address] Dr. Yarely Roe Urea nitrogen/Creatinin e [Mass ratio] 18.5 mg/mg Normal [facility] Comment on above: Performed By: #### B MP #### [facility] [address] [place] [address] Dr. Yarely Roe PROF CHEM 8 (BAS METB)on Anion gap [Moles/Vol] 11.9 mmol/L Normal [facility] Comment on above: Performed By: #### B MP #### [facility] [address] [place] [address] Dr. Yarely Roe Calcium [Mass/Vol] 9.1 mg/dL Normal 8.5-10.1 [facility] Comment on above: Performed By: #### B MP #### [facility] [address] [place] [address] Dr. Yarely Roe Chloride [Moles/Vol] 100 mmol/L Normal 98-107 [facility] Comment on above: Performed By: #### B MP #### [facility] [address] [place] [address] Dr. Yarely Roe CO2 [Moles/Vol] 30.8 mmol/L Normal 21.0-32.0 [facility] Comment on above: Performed By: #### B MP #### [facility] [address] [place] [address] Dr. Yarely Roe Creatinine [Mass/Vol] 1.27 mg/dL Critically high 0.55-1.02 [facility] Comment on above: Performed By: #### B MP #### [facility] [address] [address] [address] Yarely Roe EGFR-AF CITIZ[place] 50 mL/min/1.73m2 Critically low >=60 [facility] Comment on above: Performed By: #### B MP #### [facility] [address] [address] [address] Yarely Roe EGFR-NON AF CITIZ[place] 41 mL/min/1.73m2 Critically low >=60 [facility] Comment on above: Performed By: #### B MP #### [facility] [address] [address] [address] Yarely Roe Glucose [Mass/Vol] 166 mg/dL Critically high 74-106 T [facility] Comment on above: Performed By: #### B MP #### [facility] [address] [address] [address] Yarely Roe Potassium [Moles/Vol] 3.7 mmol/L Normal 3.5-5.1 [facility] Comment on above: Performed By: #### B MP #### [facility] [address] [address] [address] Yarely Roe Sodium [Moles/Vol] 139 mmol/L Normal 136-145 [facility] Comment on above: Performed By: #### B MP #### [facility] [address] [address] [address] Yarely Roe Urea nitrogen [Mass/Vol] 20.0 mg/dL Critically high 7.0-18.0 [facility] Comment on above: Performed By: #### B MP #### [facility] [address] [address] [address] Yarely Roe Urea nitrogen/Creatinin e [Mass ratio] 15.7 mg/mg Normal [facility] Comment on above: Performed By: #### B MP #### [facility] [id number] Yarley Roe Office Visit (Cardiology)on 11-02-2021 Follow-up visit Diagnoses/Problems Assessed Hyperlipidemia (272.4) (E78.5) Ischemic cardiomyopathy (414.8) (I25.5) HTN (hypertension) (401.9) (I10) History of AL (myocardial infarction) (412) (I25.2) CAD, multiple vessel (414.00) (I25.10) S/P CABG x 3 (V45.81) (Z95.1) Type 2 diabetes mellitus (250.00) (E11.9) Class 1 obesity with body mass index (BMI) of 34.0 to 34.9 in adult (278.00,V85.34) (E66.9,Z68.34) Edema (782.3) (R60.9) Hyperkalemia (276.7) (E87.5) Orders CAD, multiple vessel Renew: Aspirin Low Dose 81 MG Oral Tablet Delayed Release; TAKE ONE TABLET BY MOUTH ONCE DAILY Renew: Carvedilol 25 MG Oral Tablet; Take one tablet by mouth twice a day CAD, multiple vessel, Dyslipidemia, HTN (hypertension), S/P CABG x 3, Type 2 diabetes mellitus Renew: Lisinopril 5 MG Oral Tablet; take one table daily CAD, multiple vessel, Health Maintenance Basic Metabolic Panel; Status:Active - Retrospective Authorization; Requested for:[id number]; CAD, multiple vessel, Hyperlipidemia Renew: Rosuvastatin Calcium 5 MG Oral Tablet; TAKE ONE TABLET BY MOUTH AT BEDTIME Class 1 obesity with body mass index (BMI) of 34.0 to 34.9 in adult Healthy Weight Tips; Status:Complete - Retrospective Authorization; Done: [id number] Edema Start: Spironolactone 25 MG Oral Tablet; TAKE 1 TABLET DAILY Unlinked Stop: Potassium Chloride ER 20 MEQ Oral Tablet Extended Release Patient Instructions By signing my name below, I, Christen Pastrana LPNScribe, attest that this documentation has been prepared under the direction and in the presence of Dr. Tom Ruano MD. All medical record entries made by the Scribe were at my direction and personally dictated by me. I have reviewed the chart and agree that the record accurately reflects my personal performance of the history, physical exam, discussion and plan. Please bring all medicines, vitamins, and herbal supplements with you when you come to the office. Prescriptions will not be filled unless you are compliant with your follow up appointments or have a follow up appointment scheduled as per instruction of your physician. Refills should be requested at the time of your visit. Follow up in 6 months Chief Complaint LEXI CASTILLO is being seen for a 9 month follow-up of. History of Present Illness Patient returns for follow-up of problems as noted. In the interim she is done well and she has none of the symptoms of heart failure that preceded her original diagnosis of cardiomyopathy and subsequent implementation of therapy. She notes that recently she had labs done by primary care and she was hypokalemic on loop diuretic therapy. Because of this she was started on potassium supplement. She also acknowledges intercomplains of lower extremity edema. I advised her that if she were to use up her potassium supplement, and thereafter resume spironolactone, this additional diuretic therapy would probably improve her edema as well as any dyspnea that she might have and also mitigate the hypokalemia. We discussed and reviewed in great detail previous problems with electrolyte balance. In the past she was hyperkalemic on spironolactone and that was stopped but now she is, again, hypokalemic and because of this I believe we should give spironolactone yet another try because of her cardiomyopathy as well as her lower extremity edema and her propensity to volume overload. We discussed coronary disease and symptoms to watch for and she states she has none of the symptoms of coronary disease or procedure diagnosis and subsequent bypass surgery. Control of other risk factors including lipids and diabetes are reviewed and felt to be satisfactory. Surgical History Problems History of Aortobifemoral bypass History of CABG History of Cataract surgery History of section x3 Current Meds Medication NameInstruction Acetaminophen 500 MG Oral TabletTAKE 1 TABLET EVERY 4 TO 6 HOURS NEEDED. Allopurinol 300 MG Oral TabletTAKE ONE TABLET BY MOUTH ONCE DAILY Aspirin Low Dose 81 MG Oral Tablet Delayed ReleaseTAKE ONE TABLET BY MOUTH ONCE DAILY Carvedilol 25 MG Oral TabletTake one tablet by mouth twice a day Clopidogrel Bisulfate 75 MG Oral TabletTake 1 tablet daily Docusate Sodium 100 MG Oral TabletTAKE 1 TABLET DAILY DIRECTED. Furosemide 40 MG Oral TabletTake one tablet daily in the morning Gabapentin 100 MG TABSTAKE 1 TABLET 3 TIMES DAILY. Lisinopril 5 MG Oral Tablettake one table daily Metoprolol Tartrate 25 MG Oral TabletTAKE 1 TABLET Every twelve hours Multiple Vitamins/Minerals TABSTAKE 1 TABLET DAILY. Oxybutynin Chloride ER 5 MG Oral Tablet Extended Release 24 HourTAKE ONE TABLET BY MOUTH IN THE MORNING Potassium Chloride ER 20 MEQ Oral Tablet Extended ReleaseTake 1 tablet daily Rosuvastatin Calcium 5 MG Oral TabletTAKE ONE TABLET BY MOUTH AT BEDTIME Allergies Medication WILLIAMS Inhibitors Hyperkalemia; RENAL INSUFF.; Recorded By: Jane Way; 07/12/2021 2:24:53 PM (more content not included)... Normal [employer] Tobacco Screening.on 022 Adult depression screening assessment No [facility] [employer] 250 DO Work Phone: Fall risk assessment a) No falls within the last year [facility] [facility] [employer] 250 DO Work Phone: Tobacco use status CPHS b) No [facility] [employer] 250 DO Work Phone: XR LSPINE MIN 4 VIEWSon XR LSPINE MIN 4 VIEWS EXAMINATION: XR LSPINE MIN 4 VIEWS HISTORY: Left side sciatica COMPARISON: No relevant comparison available. FINDINGS: BONES: 3 mm anterolisthesis of L4 in relation L5. No acute fracture. Moderate degenerative spondylosis T10-L1. Mild to moderate facet osteoarthropathy most significant at L5-S1 DISC SPACES: Multilevel disc space narrowing with endplate sclerosis PARASPINOUS: Negative. No paraspinous abnormality is seen. OTHER: Vascular calcifications. Right pelvic vascular stent. IMPRESSION: [id number] degenerative changes with minimal anterolisthesis of L4 and L5 Electronically authenticated by: ALISSA RAMIREZ Date: 2021-10-16 07:05 Normal [facility] CBC AUTO DIFFon 10-15-2021 BASO # 0.0 103/ul Normal 0.0-0.1 [facility] Comment on above: Performed By: #### C BC #### [facility] [address] [place] [address] Dr. Yarely Roe Basophils/100 WBC (Bld) 0.3 % Normal 0.2-2.0 [facility] Comment on above: Performed By: #### C BC #### [facility] [address] [place] [address] Dr. Yarely Roe EO # 0.3 103/ul Normal 0.0-0.7 [facility] Comment on above: Performed By: #### C BC #### [facility] [address] [place] [address] Dr. Yarely Roe Eosinophils/100 WBC (Bld) 3.4 % Normal 0.9-7.0 [facility] Comment on above: Performed By: #### C BC #### [facility] [address] [place] [address] Dr. Yarely Roe Erythrocyte distribution width (RBC) [Ratio] 15.1 % Critically high 11.0-15.0 [facility] Comment on above: Performed By: #### C BC #### [facility] [address] [place] [address] Dr. Yarely Roe Hematocrit (Bld) [Volume fraction] 42.1 % Normal 36.0-48.0 [facility] Comment on above: Performed By: #### C BC #### [facility] [address] [place] [address] Dr. Yarely Roe Hemoglobin (Bld) [Mass/Vol] 13.5 g/dL Normal 12.0-16.0 [facility] Comment on above: Performed By: #### C BC #### [facility] [address] [place] [address] Dr. Yarely Roe IG # 0.04 10e3/ul Critically high 0.00-0.03 [facility] Comment on above: Performed By: #### C BC #### [facility] [address] [place] [address] Dr. Yraely Roe IG % 0.4 % Normal 0.0-0.5 [facility] Comment on above: Performed By: #### C BC #### [facility] [address] [place] [address] Dr. Yarely Roe LYMPH # 2.1 103/ul Normal 1.2-3.8 [facility] Comment on above: Performed By: #### C BC #### [facility] [address] [place] [address] Dr. Yarely Roe Lymphocytes/100 WBC (Bld) 22.9 % Normal 20.5-60.0 [facility] Comment on above: Performed By: #### C BC #### [facility] [address] [place] [address] Dr. Yarely Roe MANUAL DIFF REQ NO Normal [facility] Comment on above: Performed By: #### C BC #### [facility] [address] [place] [address] Dr. Yarely Roe MCH (RBC) [Entitic mass] 31.5 pg Normal 26.7-34.0 [facility] Comment on above: Performed By: #### C BC #### [facility] [address] [place] [address] Dr. Yarely Roe MCHC (RBC) [Mass/Vol] 32.1 g/dL Normal 29.9-35.2 [facility] Comment on above: Performed By: #### C BC #### [facility] [address] [place] [address] Dr. Yarely Roe MCV (RBC) [Entitic vol] 98.1 fL Normal 81.0-99.0 [facility] Comment on above: Performed By: #### C BC #### [facility] [address] [place] [address] Dr. Yarely Roe MONO # 0.6 103/ul Normal 0.3-0.8 [facility] Comment on above: Performed By: #### C BC #### [facility] [address] [place] [address] Dr. Yarely Roe Monocytes/100 WBC (Bld) 6.1 % Normal 1.7-12.0 [facility] Comment on above: Performed By: #### C BC #### [facility] [address] [place] [address] Dr. Yarely Roe NEUT # 6.2 103/ul Normal 1.4-6.5 [facility] Comment on above: Performed By: #### C BC #### [facility] [address] [place] [address] Dr. Yarely Roe Neutrophils/100 WBC (Bld) 66.9 % Normal 43.0-75.0 [facility] Comment on above: Performed By: #### C BC #### [facility] [address] [place] [address] Dr. Yarely Roe Platelet mean volume (Bld) [Entitic vol] 10.9 fL Normal 9.5-13.5 [facility] Comment on above: Performed By: #### C BC #### [facility] [address] [place] [address] Dr. Yarely Roe PLT 220 103/ul Normal 150-450 [facility] Comment on above: Performed By: #### C BC #### [facility] [address] [place] [address] Dr. Yarely Roe RBC 4.29 106/ul Normal 4.20-5.40 [facility] Comment on above: Performed By: #### C BC #### [facility] [address] [place] [address] Dr. Yarely Roe WBC 9.2 103/ul Normal 4.0-11.0 [facility] Comment on above: Performed By: #### C BC #### [facility] [address] [place] [address] Dr. Yarely Roe GLYCOHEMOGLOBIN A1Con 2021 ADA RECOMMENDATION ADA THERAPEUTIC TARGET 6.0 - 7.0 ACTION SUGGESTED > 7.0 Normal [facility] Comment on above: Performed By: #### A 1C #### [facility] [address] [place] [address] Dr. Yarely Roe Glucose [Mass/Vol] 183 mg/dL Normal [facility] Comment on above: Performed By: #### A 1C #### [facility] [address] [place] [address] Dr. Yarely Roe HbA1c (Bld) [Mass fraction] 8.0 % Critically high <=6.0 [facility] Comment on above: Performed By: #### A 1C #### [facility] [address] [place] [address] Dr. Yarely Roe PROF 14(COMP METB)on 022 Albumin [Mass/Vol] 3.4 g/dL Normal 3.4-5.0 [facility] Comment on above: Performed By: #### C MP #### [facility] [address] [place] [address] Dr. Yarely Roe Albumin/Globulin [Mass ratio] 0.8 {ratio} Normal [facility] Comment on above: Performed By: #### C MP #### [facility] [address] [place] [address] Dr. Yarely Roe ALP [Catalytic activity/Vol] 59 U/L Normal 46-116 [facility] Comment on above: Performed By: #### C MP #### [facility] [address] [place] [address] Dr. Yarely Roe ALT [Catalytic activity/Vol] 9 U/L Critically low 14-59 [facility] Comment on above: Performed By: #### C MP #### [facility] [address] [place] [address] Dr. Yarely Roe Anion gap [Moles/Vol] 11.3 mmol/L Normal [facility] Comment on above: Performed By: #### C MP #### [facility] [address] [place] [address] Dr. Yarely Roe AST [Catalytic activity/Vol] 15 U/L Normal 15-37 [facility] Comment on above: Performed By: #### C MP #### [facility] [address] [place] [address] Dr. Yarely Roe Bilirubin [Mass/Vol] 0.3 mg/dL Normal 0.2-1.3 [facility] Comment on above: Performed By: #### C MP #### [facility] [address] [place] [address] Dr. Yarely Roe Calcium [Mass/Vol] 9.4 mg/dL Normal 8.5-10.1 [facility] Comment on above: Performed By: #### C MP #### [facility] [address] [place] [address] Dr. Yarely Roe Chloride [Moles/Vol] 97 mmol/L Critically low 98-107 [facility] Comment on above: Performed By: #### C MP #### [facility] [address] [place] [address] Dr. Yarely Roe CO2 [Moles/Vol] 33.0 mmol/L Critically high 22.0-30.0 [facility] Comment on above: Performed By: #### C MP #### [facility] [address] [address] [address] Yarely Roe Creatinine [Mass/Vol] 1.40 mg/dL Critically high 0.52-1.04 [facility] Comment on above: Performed By: #### C MP #### [facility] [address] [address] [address] Yarely Roe EGFR-AF [place]IZ[place] 44 mL/min/1.73m2 Critically low >=60 [facility] Comment on above: Performed By: #### C MP #### [facility] [address] [address] [address] Yarely Roe EGFR-NON AF CITIZEN OF [place] 37 mL/min/1.73m2 Critically low >=60 [facility] Comment on above: Performed By: #### C MP #### [facility] [address] [address] [address] Yarely Roe Globulin (S) [Mass/Vol] 4.3 g/dL Normal [facility] Comment on above: Performed By: #### C MP #### [facility] [address] [address] [address] Yarely Roe Glucose [Mass/Vol] 224 mg/dL Critically high 74-106 T [facility] [place] Comment on above: Performed By: #### C MP #### [facility] [address] [address] [address] Yarely Roe Potassium [Moles/Vol] 3.3 mmol/L Critically low 3.4-5.0 [facility] Comment on above: Performed By: #### C MP #### [facility] [address] [address] [address] Yarely Roe Protein [Mass/Vol] 7.7 g/dL Normal 6.1-8.2 [facility] Comment on above: Performed By: #### C MP #### [facility] [address] [address] [address] Yarely Roe Sodium [Moles/Vol] 138 mmol/L Normal 137-145 [facility] Comment on above: Performed By: #### C MP #### [facility] [address] [place], [place] [address] Dr. Yarely Roe Urea nitrogen [Mass/Vol] 27.0 mg/dL Critically high 7.0-18.0 [facility] Comment on above: Performed By: #### C MP #### [facility] [address] [place], [place] [address] Dr. Yarely Roe Urea nitrogen/Creatinin e [Mass ratio] 19.3 mg/mg Normal [facility] Comment on above: Performed By: #### C MP #### [facility] [address] [place], [place] [address] [facility] Carotid Artery Dupl ex Ultrasounon 05-08-2020 [facility] Carotid Artery Duplex Ultrasoun [address], [address] [place] [address] Vascular Lab Report Carotid Artery Duplex Ultrasound Patient Name: LEXI RAMESH ANNA Reading Physician: [id number] Charlotte Cordon MD, [facility] Study Date: 05/08/2020 Referring Physician: [id number] Tom Ruano MD MRN/PID: [id number] PCP: Li Lee Accession/Order#: [id number] CC Report to: Date of : 1945 Technologist: Surekha Hartley RDCS [facility] Gender: F Technologist 2: Admission Status: Outpatient Location Performed: [facility] Diagnosis/ICD: R09.89-Other specified symptoms and signs involving the circulatory and respiratory systems Indication: Diabetes, Hyperlipidemia, Former Smoker, Vertigo, CAD, CABG, Ischemic Cardiomyopathy, PTCA, AL, Obesity Procedure/CPT: 66931 Cerebrovascular Carotid Duplex scan complete-[id number] CONCLUSIONS: Right Carotid: Findings are consistent with 50 to 69% stenosis of the right proximal ICA. Laminar flow seen by color Doppler. There are elevated velocities in the right ECA that are suggestive of disease. No evidence of hemodynamically significant stenosis of the right common carotid artery. The right vertebral artery is patent with antegrade flow. Left Carotid: Findings are consistent with less than 50% stenosis of the left proximal ICA. Laminar flow seen by color Doppler. Left external carotid artery appears patent with no evidence of stenosis. No evidence of hemodynamically significant stenosis of the left common carotid artery. The left vertebral artery is patent with antegrade flow. Imaging & Doppler Findings: Right Plaque Morph: The proximal right internal carotid artery demonstrates heterogenous and irregular plaque. The distal right common carotid artery demonstrates irregular and heterogenous plaque. Right Left PSV EDV PSV EDV 106 cm/s 23 cm/s CCA P 92 cm/s 20 cm/s 60 cm/s 16 cm/s CCA M 87 cm/s 15 cm/s 58 cm/s 16 cm/s CCA D 82 cm/s 18 cm/s 127 cm/s 31 cm/s ICA P 73 cm/s 21 cm/s 107 cm/s 27 cm/s ICA M 83 cm/s 25 cm/s 111 cm/s 33 cm/s ICA D 123 cm/s 34 cm/s 221 cm/s ECA 102 cm/s 62 cm/s Vertebral 106 cm/s Right Left ICA/CCA Ratio 2.2 0.9 [id number] Charlotte Cordon MD, FACC Final Normal [facility] HEMOGLOBIN A1Con 06-17-2019 HbA1c (Bld) [Mass fraction] 7.5 % Normal [facility] Comment on above: Result Comment: Diag nosis of Diabetes-Adults Non-Diabetic: < or = 5.6% Increased risk for developing diabetes: 5.7-6.4% Diagnostic of diabetes: > or = 6.5% . Monitoring of Diabetes Age (y) Therapeutic Goal (%) Adults: >18 <7.0 Pediatrics: 13-18 <7.5 7-12 <8.0 0- 6 7.5-8.5 [place] [employer]. Diabetes Care 33(S1), Jul 2009. Performed By: #### H BA1E #### [facility] [address] [place] [address] HbA1c (Bld) [Mass fraction] 169 MG/DL Normal [facility] Comment on above: Performed By: #### H BA1E #### [facility] [address] [place] [address] Anthony 06-16-2019 AST [Catalytic activity/Vol] 18 U/L Normal 9 - 39 [facility] Comment on above: Order Comment: Desean nt states she had black coffee this a.m. Performed By: #### A ST #### [address] [address] COMPREHENSIVE PANELon 2018 Albumin [Mass/Vol] 4.1 g/dL Normal 3.4 - 5.0 [facility] Comment on above: Performed By: #### C MP #### [address] [address] ALP [Catalytic activity/Vol] 62 U/L Normal 33 - 136 [facility] Comment on above: Performed By: #### C MP #### [address] [address] ALT [Catalytic activity/Vol] 12 U/L Normal 7 - 45 [facility] Comment on above: Result Comment: Yareli ents treated with Sulfasalazine may generate falsely decreased results for ALT. Performed By: #### C MP #### [address] [address] Anion gap [Moles/Vol] 13 mmol/L Normal 10 - 20 [facility] Comment on above: Performed By: #### C MP #### [address] [address] AST [Catalytic activity/Vol] 16 U/L Normal 9 - 39 [facility] Comment on above: Performed By: #### C MP #### [address] [address] Bilirubin [Mass/Vol] 0.5 mg/dL Normal 0.0 - 1.2 [facility] Comment on above: Performed By: #### C MP #### [address] [address] Calcium [Mass/Vol] 9.8 mg/dL Normal 8.6 - 10.3 [facility] Comment on above: Performed By: #### C MP #### [address] [address] Chloride [Moles/Vol] 103 mmol/L Normal 98 - 107 [facility] Comment on above: Performed By: #### C MP #### [address] [address] Creatinine [Mass/Vol] 1.32 mg/dL High 0.50 - 1.05 [facility] Comment on above: Performed By: #### C MP #### [address] [address] GFR- AM. 47 mL/min/1.73m2 Abnormal >60 [facility] Comment on above: Result Comment: CALC ULATIONS OF ESTIMATED GFR ARE PERFORMED USING THE MDRD STUDY EQUATION FOR THE IDMS-TRACEABLE CREATININE METHODS. CLIN CHEM 2007;53:766-72 Performed By: #### C MP #### [address] [address] GFR-NON AM. 39 mL/min/1.73m2 Abnormal >60 [facility] Comment on above: Performed By: #### C MP #### [address] [address] Glucose [Mass/Vol] 115 mg/dL High 74 - 99 [facility] Comment on above: Performed By: #### C MP #### [address] [address] HCO3 (Bld) [Moles/Vol] 25 mmol/L Normal 21 - 32 [facility] Comment on above: Performed By: #### C MP #### [address] [address] Potassium [Moles/Vol] 5.4 mmol/L High 3.5 - 5.3 [facility] Comment on above: Performed By: #### C MP #### [address] [address] Protein [Mass/Vol] 7.5 g/dL Normal 6.4 - 8.2 [facility] Comment on above: Performed By: #### C MP #### [address] [address] Sodium [Moles/Vol] 136 mmol/L Normal 136 - 145 [facility] Comment on above: Performed By: #### C MP #### [address] [address] Urea nitrogen [Mass/Vol] 40 mg/dL High 6 - 23 [facility] Comment on above: Performed By: #### C MP #### [address] [address] LIPID PANEL (CORONARY RISK 2 )on 06-16-2019 Cholesterol [Mass/Vol] 182 mg/dL Normal 0 - 199 [facility] Comment on above: Order Comment: Desean hernandez states she had black coffee this a.m. Result Comment: . AGE DESIRABLE BORDERLINE HIGH HIGH 0-19 Y 0 - 169 170 - 199 >/= 200 20-24 Y 0 - 189 190 - 224 >/= 225 >24 Y 0 - 199 200 - 239 >/= 240 All ranges are based on fasting samples. Specific therapeutic targets will vary based on patient-specific cardiac risk. . Pediatric guidelines reference:Pediatrics 2011, 128(S5). Adult guidelines reference: NCEP ATPIII Guidelines, NANCIE 2001, 258:2486-97 . Venipuncture immediately after or during the administration of Metamizole may lead to falsely low results. Testing should be performed immediately prior to Metamizole dosing. Performed By: #### L IPID #### [address] [address] Cholesterol in HDL [Mass/Vol] 39.0 mg/dL Abnormal [facility] Comment on above: Order Comment: Desean hernandez states she had black coffee this a.m. Result Comment: . AGE VERY LOW LOW NORMAL HIGH 0-19 Y < 35 < 40 40-45 ---- 20-24 Y ---- < 40 >45 ---- >24 Y ---- < 40 40-60 >60 . Performed By: #### L IPID #### [address] [address] Cholesterol in LDL [Mass/Vol] 92 mg/dL Normal 0 - 99 [facility] Comment on above: Order Comment: Desean hernandez states she had black coffee this a.m. Result Comment: . NEAR BORD AGE DESIRABLE OPTIMAL HIGH HIGH VERY HIGH 0-19 Y 0 - 109 --- 110-129 >/= 130 ---- 20-24 Y 0 - 119 --- 120-159 >/= 160 ---- >24 Y 0 - 99 100-129 130-159 160-189 >/=190 . Performed By: #### L IPID #### [address] [address] Cholesterol in VLDL [Mass/Vol] 51 mg/dL High 0 - 40 [facility] Comment on above: Order Comment: Desean hernandez states she had black coffee this a.m. Performed By: #### L IPID #### [address] [address] Cholesterol.total/ Cholesterol in HDL [Mass ratio] 4.7 {ratio} Normal [facility] Comment on above: Order Comment: Desean hernandez states she had black coffee this a.m. Result Comment: REF VALUES DESIRABLE < 3.4 HIGH RISK > 5.0 Performed By: #### L IPID #### [address] [address] NON-HDL CHOLESTEROL 143 mg/dL Normal [facility] Comment on above: Order Comment: Desean hernandez states she had black coffee this a.m. Result Comment: AGE DESIRABLE BORDERLINE HIGH HIGH VERY HIGH 0-19 Y 0 - 119 120 - 144 >/= 145 >/= 160 20-24 Y 0 - 149 150 - 189 >/= 190 ---- >24 Y 30 MG/DL ABOVE LDL CHOLESTEROL GOAL . Performed By: #### L IPID #### [address] [address] Triglyceride [Mass/Vol] 255 mg/dL High 0 - 149 [facility] Comment on above: Order Comment: Desean hernandez states she had black coffee this a.m. Result Comment: . AGE DESIRABLE BORDERLINE HIGH HIGH VERY HIGH 0 D-90 D 19 - 174 ---- ---- ---- 91 D- 9 Y 0 - 74 75 - 99 >/= 100 ---- 10-19 Y 0 - 89 90 - 129 >/= 130 ---- 20-24 Y 0 - 114 115 - 149 >/= 150 ---- >24 Y 0 - 149 150 - 199 200- 499 >/= 500 . Venipuncture immediately after or during the administration of Metamizole may lead to falsely low results. Testing should be performed immediately prior to Metamizole dosing. Performed By: #### L IPID #### [address] [address] Vital Signs Date Time Vital Sign Value Performing Clinician Facility 08-13-2023 13:00-0500 Body height Da Moellertyesha GUILLERMO [facility] Other 11-12-2022 15:30-0400 Body height Ross Colmenares [facility] Other 11-12-2022 15:30-0400 Body mass index (BMI) [Ratio] 33.32 kg/m2 Ross Colmenares [facility] Other 11-12-2022 15:30-0400 Body weight 74.84 kg Ross Colmenares [facility] Other 07-25-2022 15:55-0500 Body height 149.86 cm Li Lee Work Phone: [facility]Jplxfjcxlv[facility]orndvo y 250 DO Work Phone: 07-25-2022 15:55-0500 Body mass index (BMI) [Ratio] 34.94 kg/m2 Li Lee Work Phone: [facility]Ttixojundy-Swwpjlz y 250 DO Work Phone: 07-25-2022 15:55-0500 Body surface area Derived from formula 1.73 m2 Li Lee Work Phone: [facility]Dqgfxjoizq-Sqfmcja y 250 DO Work Phone: 07-25-2022 15:55-0500 Body weight 78.47 kg Li Lee Work Phone: [facility]-Dxhufzqoym-Qoteggd y 250 DO Work Phone: 07-25-2022 15:55-0500 Diastolic blood pressure 80 mm[Hg] Li Lee Work Phone: JW-Yjsqrnvxbq-Hhbxhrq y 250 DO Work Phone: 07-25-2022 15:55-0500 Heart rate 66 /min Li Lee Work Phone: [facility]Jlzjfydfno-Zstrssn y 250 DO Work Phone: 07-25-2022 15:55-0500 Systolic blood pressure 120 mm[Hg] Li Lee Work Phone: NN-Kuvjjvdzpb-Zybhaef y 250 DO Work Phone: 11-02-2021 13:16-0400 Body height 149.86 cm Li Lee Work Phone: [facility] 250 DO Work Phone: 11-02-2021 13:16-0400 Body mass index (BMI) [Ratio] 34.54 kg/m2 Li Lee Work Phone: [facility] 250 DO Work Phone: 11-02-2021 13:16-0400 Body surface area Derived from formula 1.73 m2 Li Lee Work Phone: [facility] 250 DO Work Phone: 11-02-2021 13:16-0400 Body weight 77.57 kg Li Lee Work Phone: [facility] 250 DO Work Phone: 11-02-2021 13:16-0400 Diastolic blood pressure 80 mm[Hg] Li Yael Lee Work Phone: [facility] 250 DO Work Phone: 11-02-2021 13:16-0400 Heart rate 66 /min Li Lee Work Phone: [facility] 250 DO Work Phone: 11-02-2021 13:16040 Systolic blood pressure 130 mm[Hg] Li Lee Work Phone: [facility] 250 DO Work Phone: Encounters Encounter Date Encounter Type Care Provider Facility Start: 11-19-2023 ambulatory SEISMOGRAPH OBSERVER Maxine L Shraddha Facil ity: [facility] Start: 09-17-2023 ambulatory SEISMOGRAPH OBSERVER Maxine L Shraddha Facil ity: [facility] Start: 08-20-2023 End: 08-21-2023 ambulatory SEISMOGRAPH OBSERVER Maxine L Shraddha Facility:[facility] Start: 08-13-2023 End: 08-13-2023 ambulatory Da Blake II [facility] Other Start: 08-13-2023 Office outpatient vi sit 15 minutes Da Kent II [facility] Start: 05-21-2023 End: 05-22-2023 ambulatory SEISMOGRAPH OBSERVER Maxine L Shraddha Facility:[facility] Start: 04-23-2023 (Procedure) Raine Colmenares [facility] Start: 04-23-2023 End: 04-23-2023 ambulatory Ross Colmenares [facility] Other Start: 04-07-2023 End: 04-07-2023 ambulatory Ross Colmenares [facility] Other Start: 04-07-2023 Telephone encounter Ross Colmenares [facility] Start: 03-27-2023 End: 03-27-2023 ambulatory Da Blake II [facility] Other Start: 03-27-2023 Office outpatient vi sit 15 minutes Da Kent II [facility] Start: 03-25-2023 ambulatory SEISMOGRAPH OBSERVER Maxine L Shraddha Facil ity:[facility] Start: 03-05-2023 End: 03-06-2023 ambulatory SEISMOGRAPH OBSERVER Maxine L Shraddha Facility:[facility]bi Start: 02-10-2023 End: 02-11-2023 ambulatory SEISMOGRAPH OBSERVER Maxine L Shraddha Facility:[facility] Start: 02-10-2023 End: 02-10-2023 Lab Drop off Maxine L Shraddha [facility] Start: 02-05-2023 ambulatory SEISMOGRAPH OBSERVER Maxine L Shraddha Facil ity:[facility] Start: 12-25-2022 (Procedure) Short Ross Colmenares [facility] Start: 12-25-2022 End: 12-25-2022 ambulatory Ross Fadiatyler [facility] Other Start: 12-04-2022 End: 12-04-2022 ambulatory Da Lozano II Facility:[facility] Start: 11-12-2022 End: 11-12-2022 ambulatory Ross Colmenares [facility] Other Start: 11-12-2022 Office outpatient ne w 45 minutes Ross Colmenares [facility] Start: 11-11-2022 End: 11-11-2022 ambulatory Ross Colmenares Facility:[facility] Start: 11-11-2022 End: 11-11-2022 ambulatory MD Li Lee Work Phone: [facility] Work Phone: Start: 11-11-2022 End: 11-11-2022 Patient encounter procedure MD Li Lee Work Phone: [facility] Start: 10-09-2022 Rx Renewal Li Lee Work Phone: [facility] 250 DO Work Phone: Start: 07-25-2022 Office outpatient vi sit 25 minutes Li Lee Work Phone: [facility] 250 DO Work Phone: Start: 07-25-2022 ambulatory Tom Ruano II Facility: Start: 07-10-2022 Rx Renewal Li Lee Work Phone: [facility] 250 DO Work Phone: Start: 01-30-2022 End: 01-31-[address] LI LEE Facility:[facility] Start: 12-19-2021 Encounter for genera l adult medical examination without abnormal findings DR TOM RUANO [facility] Start: 12-13-2021 End: 12-14-[address] LI LEE Facility:[facility] Start: 12-13-2021 End: 12-14-2021 Encounter for general adult medical examination without abnormal findings DR LI LEE Facility:[facility] Start: 11-02-2021 Office outpatient vi sit 25 minutes iL Lee Work Phone: [facility] 250 DO Work Phone: Start: 11-02-[address] LI LEE Facilit y:[facility] Start: 10-18-2021 End: 01-19-[address] LI LEE Facility:[facility] Start: 10-15-2021 End: 10-16-[address] LI LEE Facility:[facility] Start: 10-11-2021 Rx Renewal Li Lee Work Phone: [facility] 250 DO Work Phone: Start: 09-10-2021 Rx Renewal iL Lee Work Phone: [facility] 250 DO Work Phone: Start: 08-03-2021 AUDIT Li Lee Work Phone: [facility] 250 DO Work Phone: Start: 11-20-2017 Ambulatory BLAKE KUO Facility :[id number] Start: 09-04-2017 Ambulatory BLAKE KUO Facility :[id number] Start: 04-07-2017 End: 04-08-2017 Ambulatory DEFAULT PHYSICIAN Facility:[facility] Patient encounter status Li Lee Work Phone: [facility] 250 DO Work Phone: Procedures Date Procedure Procedure Detail Performing Clinician Aortoiliofemoral vas cular bypass Li Lee Work Phone: CABG Li Lee Work Phone: Cataract surgery Li hartley Work Phone: Cataract surgery Maxine Llanes section Li hartley Work Phone: Comment on above: x3; section Maxine Shraddha Comment on above: Outside Source Comme nt: Comment on above: x3; History of coronary artery bypass grafting S/P CABG x 3 Li Lee Work Phone: History of coronary artery bypass grafting Maxine Shraddha Plan of Treatment Date Care Activity Detail Author Start: 07-23-2023 FUV, Provider: Tom Ruano, Status: Pen, Time: 3:40 PM FUV, Provider: Tom Ruano, Status: Pen, Time: 3:40 PM [facility] 250 DO Work Phone: Start: 11-11-2022 X-ray of lumbar spin e, four views XR lumbar spine AP/LAT/FLX/EXT [facility] Start: 11-11-2022 Plain X-ray of left hip XR hip LT min 2V(w/wo pelvis)* [facility] Start: 11-11-2022 XR Hip - left 2 Views [facility] Start: 07-25-2022 FUV, Provider: Tom Ruano, Status: Pen, Time: 3:30 PM FUV, Provider: Tom Ruano, Status: Pen, Time: 3:30 PM [facility] 250 DO Work Phone: Start: 04-19-2022 FUV, Provider: Tom Ruano, Status: Pen, Time: 3:20 PM FUV, Provider: Tom Ruano, Status: Pen, Time: 3:20 PM [facility] 250 DO Work Phone: Start: 11-02-2021 FUV, Provider: Tom Ruano, Status: Pen, Time: 1:15 PM FUV, Provider: Tom Ruano, Status: Pen, Time: 1:15 PM [facility] 250 DO Work Phone: Immunizations Immunization Date Immunization Notes Care Provider [facility] 07-03-2022 Fluad Quadrivalent 0 .5 ML Intramuscular Prefilled Syringe Li Lee Work Phone: [facility] 250 DO Work Phone: 07-03-2022 influenza virus vacc ine, unspecified formulation Maxine Llanes [facility] 06-17-2022 Pfizer COVID-19 Vac Bivalent 30 MCG/0.3ML Intramuscular Suspension Li Lee Work Phone: [facility] Comment on above: Result Comment: 2022: [id number] 04-13-2021 Pfizer-BioNTech COVI D-19 Vacc 30 MCG/0.3ML Intramuscular Suspension Li Lee Work Phone: [facility] Comment on above: Result Comment: 2022: [id number] 08-30-2020 Pfizer-BioNTech COVI D-19 Vacc 30 MCG/0.3ML Intramuscular Suspension Li Lee Work Phone: [facility] Comment on above: Result Comment: 2022: [id number] 08-09-2020 Pfizer-BioNTech COVI D-19 Vacc 30 MCG/0.3ML Intramuscular Suspension Li Lee Work Phone: [facility] Comment on above: Result Comment: 2022: [id number] 07-01-2019 influenza virus vacc ine, unspecified formulation Maxine Shraddha [facility] 07-01-2019 influenza, injectabl e, quadrivalent, contains preservative Li Lee Work Phone: [place] [address] DO Work Phone: 07-14-2018 influenza virus vacc ine, unspecified formulation Li Lee Work Phone: [facility] 04-16-2018 influenza virus vacc ine, unspecified formulation Maxine Shraddha [facility] 04-16-2018 pneumococcal polysaccharide vaccine, 23 valent Li Lee Work Phone: [facility] 04-13-2018 influenza virus vacc ine, unspecified formulation Li Lee Work Phone: [place] [address] DO Work Phone: 04-13-2018 pneumococcal conjuga te vaccine, 13 valent Li Ruizight Work Phone: [place] [address] DO Work Phone: 05-16-2017 influenza virus vacc ine, unspecified formulation Maxine Shraddha [facility] 05-12-2017 influenza, high dose seasonal, preservative-free Li Lee Work Phone: [place] [address] DO Work Phone: 10-30-2016 pneumococcal conjuga te vaccine, 13 valent Li Lee Work Phone: [facility] 10-12-2016 pneumococcal polysaccharide vaccine, 23 valent Li Lee Work Phone: [place] [address] DO Work Phone: 07-14-2011 influenza virus vacc ine, unspecified formulation Li Lee Work Phone: [facility] 250 DO Work Phone: Payers Date Payer Category Payer Medicare [id number] 2022 Self-pay [id number] 1959 Medicare [id number] 1959 Self-pay [id number] 1959 Unknown [id number] 1945 Unknown [id number] 2.16.84 0.1.129990.3.579.2.593 1945 Unknown [id number] 2.16.84 0.1.933263.3.579.2.593 1945 Unknown [id number] 2.16.84 0.1.848975.3.579.2.593 1945 Unknown [id number] 2.16.84 0.1.895388.3.579.2.593 1945 Unknown [id number] 2.16.84 0.1.351640.3.579.2.593 1945 Unknown [id number] 2.16. 840.1.939563.3.579.2.356 1945 Unknown [id number] 2.16. 840.1.965853.3.579.2.356 1945 Unknown [id number] 2.16.8 40.1.604102.3.579.2.727 1945 Unknown [id number] 2.16.8 40.1.332087.3.579.2.727 1945 Unknown [id number] 2.16.8 40.1.133482.3.579.2.727 1945 Unknown [id number] 2.16.8 40.1.300924.3.579.2.727 1945 Unknown [id number] 2.16.8 40.1.782846.3.579.2.727 1945 Unknown [id number] 2.16.8 40.1.355647.3.579.2.727 1945 Unknown [id number] 2.16.8 40.1.714718.3.579.2.727 1945 Unknown [id number] 2.16.8 40.1.587676.3.579.2.727 1945 Unknown [id number] 2.16.8 40.1.740987.3.579.2.727 1945 Unknown [id number] 2.16.8 40.1.534342.3.579.2.727 1945 Unknown [id number] 2.16.8 40.1.335679.3.579.2.727 1945 Unknown [id number] 2.16.8 40.1.870303.3.579.2.727 Medicare [id number] Medicare [id number] 2.1 6.840.1.465043.19 Unknown Unknown [id number] 2.16.8 40.1.877568.3.579.2.531 Unknown [id number] 2.16.8 40.1.254180.3.579.2.531 Social History Date Type Detail Facility Former smoker Former smoker [place] [address] DO Work Phone: Comment on above: Quit 17 years ago; Quit 25+ years ago; coffee occasionally soda, tea; Start: 08-06-2018 End: 02-10-2023 Tobacco smoking status NHIS Ex-smoker (finding) [facility] Start: 1945 Sex Assigned At Female [facility] Sex Assigned At [facility] Tobacco smoking status Never [facility] Medical Equipment Procedure Code Equipment Code Equipment Origin al Text Equipment Identifier Dates AAA repair with graft GRAFT HEMASHIELD [id number] FDA Start: 07-20-2018 AAA repair with graft IR STENT SMART 9 X 40 120 CM FDA Start: 07-20-2018 CL STENT XIENCE ALP 2.25 X 15 FDA Start: 06-24-2017 CL STENT XIENCE ALP 2.5 X 38 FDA Start: 06-24-2017 CL STENT XIENCE ALP 3.0 X 18 FDA Start: 06-24-2017 STENT PALMAZ CHLOE E 7 X 24 135CM FDA Start: 09-11-2017 [facility] DME Prescription, See Instructions, 100 strip(s), 3, True Met[employer] Test Strips Check [facility], [facility], Supply, 140.6, cm, 02/10/23 11:29:00 EDT, Height/Length Dosing, 79.2, kg, 02/10/23 11:29:00 EDT, Weight Dosing Start: 02-10-2023 Clinical Notes 11-11-2016 to 08-13-2023 Note Date & Type Note Facility 08-13-2023 Evaluation note Encounter Date Diagnosis Assessment Notes Jul, Primary osteoarthritis of left hip (ICD-10 - M16.12) Jul, Other We have provided her a few names of [facility] physicians that are currently taking new patients if she would like to explore that option. In regards to her A1c, she has another lab drawn next week. If it is less than 7.5 and it shows that it is well-controlled then if she would like she can call back in and we can consider moving forward with getting preoperative labs for a left total hip arthroplasty. If it is greater than 7.5 and she would like to try another injection with Dr. Colmenares we can certainly get that set up. While she did not have great relief on the last injection she had long-term relief on the one prior to that. If she has an injection I can see her 3 months after that. [facility] Other 09-14-2023 Evaluation note* Encounter Date Diagnosis Assessment Notes Treatment Notes Treatment Clinical Notes Mar, Primary osteoarthritis of left hip (ICD-10 - M16.12) Mar, Other 1. We had a michael g discussion with the patient today concerning their left hip osteoarthritis. The radiographs do show osteoarthritis of the hip. At this time the patient would like to avoid surgical intervention. We did discuss the risk and benefits of surgical versus nonoperative management. The patient would like to proceed with nonoperative management. We discussed that our options include injections, physical therapy, and the consistent use of anti-inflammatories. All 3 of these options, including their risks and benefits, were discussed at length with the patient. 2. Tylenol: Discussed taking Tylenol (acetaminophen). Recommended adjusting their dosing to 1000mg by mouth up to 3 times a day. 3. NSAIDs: Recommended continuing with anti-inflammatories as okayed by her PCP 4. Physical therapy: Discussed formal physical therapy and home regimen. Patient preferred no formal PT at this time. 5. Injections: Discussed injections as a treatment option. Recommend repeat left hip intra-articular steroid injections by Dr. Colmenares moving forward. 6. Insulin-dependent diabetes-I again discussed with the patient that her diabetes will need to be better controlled before we would consider hip arthroplasty. It needs to be less than 7.5. 7. Follow-up: I think it is best for her to stay in touch with Dr. Colmenares on a regular basis for further hip injections. If at some point in the future she is not getting relief with hip injections and her A1c is less than 7.5, well controlled, then I am happy to see her again in the future. 8. PCP-we are going to give her some information on some other primary care providers as she is considering changing from her current PCP [facility] Other 05-02-2023 Evaluation note* Encounter Date Diagnosis Assessment Notes Treatment Notes Treatment Clinical Notes November, Pain in left hip (ICD-10 - M25.552) November, Primary osteoarthritis of left hip (ICD-10 - M16.12) We discussed treatment options for the patient's persistent left hip and groin pain. Recent imaging shows severe degenerative changes. We discussed given her increasing pain symptoms as well recent imaging, I would like her to be formally evaluated by Orthopedics for her hip. In the future if the pain persists, we can consider a hip joint injection. We discussed with patient to continue with activity modification. Patient encouraged to continue with use of cane as needed for ambulation. November, Other low back pain (ICD-10 - M54.59) November, Chronic pain (ICD-10 - G89.29) November, Other Above note written by Ramandeep Aggarwal LPN, [employer]. Edited and approved by Dr. Ross Colmenares MD. Medical decision making shows a new problem to me with further workup planned or suggested with the potential for extensive treatment options that were considered with the most applicable given this patient's situation as noted above. Treatment options considered include a combination of physical therapy approaches, pharmacologic management, and interventional procedures. Those most applicable to the patient were discussed at this time. Risk of complications and/or morbidity and mortality is high given that acute and chronic pain poses a threat to life and bodily function if undertreated, poorly treated or with failure to maintain adequate treatment and timely followup. Given the serious and fluctuating nature of pain with extensive consideration for whenever pain changes, there always remains the possibility of prolonged functional impairment requiring constant patient reassessment and high-level medical decision making. The amount and complexity of data reviewed is high given that patient labs, radiology reports, and other test were obtained, reviewed and summarized as applicable from the physician portal and/or outside medical records. Pertinent positive and negative findings were considered in medical decision-making. [facility] Other 05-01-2017 History general Narrative - Reported* Type Description Date Medical History AL Medical History Hyperlipiedmia Medical History PVD Medical History DM Medical History HTN Surgical History Open Heart 11/2016 Surgical History Cardiac Stent 09/2017 Surgical History Cardiac Stent 05/2017 Surgical History C- section 1960 Surgical History Rt iliac angioplasty & stent; Aortobiiliac bifurcation graft 07/20/18 Hospitalization History See above [facility] Other Evaluation + Plan note Future Appointments Appointment Date:03/25/2023 01:00:00 PM Scheduled Provider: Location:[facility] Appointment Type:FM Medicare Wellness Subsequent [facility] noteNo assessment information available [facility] Work Phone: Evaluation noteNo InformationNort Written Other History of Present illness Narrative* Patient returns for follow-up of problems as noted. In the interim she is done well and she has none of the symptoms of heart failure that preceded her original diagnosis of cardiomyopathy and subsequent implementation of therapy. She notes that recently she had labs done by primary care and she was hypokalemic on loop diuretic therapy. Because of this she was started on potassium supplement. * She also acknowledges intercomplains of lower extremity edema. I advised her that if she were to use up her potassium supplement, and thereafter resume spironolactone, this additional diuretic therapy would probably improve her edema as well as any dyspnea that she might have and also mitigate the h ypokalemia. * We discussed and reviewed in great detail previous problems with electrolyte balance. In the past she was hyperkalemic on spironolactone and that was stopped but now she is, again, hypokalemic and because of this I believe we should give spironolactone yet another try because of her cardiomyopathy as well as her lower extremity edema and her propensity to volume overload. * We discussed coronary disease and symptoms to watch for and she states she has none of the symptomsof coronary disease or procedure diagnosis and subsequent bypass surgery. Control of other risk factors including lipids and diabetes are reviewed and felt to be satisfactory. [facility] [employer] DO Work Phone: History of Present illness Narrative* Patient returns for follow-up of problems as noted. In the interim she is done well and she has none of the symptoms of heart failure that preceded her original diagnosis of cardiomyopathy and subsequent implementation of therapy. She notes that recently she had labs done by primary care and she was hypokalemic on loop diuretic therapy. Because of this she was started on potassium supplement. * She also acknowledges intercomplains of lower extremity edema. I advised her that if she were to use up her potassium supplement, and thereafter resume spironolactone, this additional diuretic therapy would probably improve her edema as well as any dyspnea that she might have and also mitigate the h ypokalemia. * We discussed and reviewed in great detail previous problems with electrolyte balance. In the past she was hyperkalemic on spironolactone and that was stopped but now she is, again, hypokalemic and because of this I believe we should give spironolactone yet another try because of her cardiomyopathy as well as her lower extremity edema and her propensity to volume overload. * We discussed coronary disease and symptoms to watch for and she states she has none of the symptomsof coronary disease or procedure diagnosis and subsequent bypass surgery. Control of other risk factors including lipids and diabetes are reviewed and felt to be satisfactory. [facility] [employer] 250 DO Work Phone: History of Present illness NarrativePatient returns in follow-up of problems as noted. She is doing well. She has no other symptoms of coronary disease that preceded her original diagnosis and subsequent bypass surgery. I cannot elicitany angina CHF or arrhythmia complaints. Her hypertension is well controlled as are lipids. Body mass index could be improved upon the merits of diet exercise and weight loss and their favorable impact on her diabetes and hypertension were explained. Specifically advised her to avoid manmade sugarsand/or flour products. She otherwise is doing well because of this we suggest no change and follow-up as [id number] 250 DO Work Phone: Hospital course Narrative No data available for this section [facility] No data available for this section [facility] HealthProgress note No data available for this section [facility] HealthReason for visit NarrativeNEW SELF REFERRAL [facility] Other Summary Purpose Family History No Family History Records FoundUnknown Family Member Name Dates Details Family history of hypertensi on: Mother(V17.49, Z82.49) Status:Active Family history of malignant neoplasm of kidney: Brother(V16.51, Z80.51) Status:Active Heart problem: Father Status:Active Unknown Family Member Name Dates Details Family history of hypertensi on: Mother(V17.49, Z82.49) Status:Active Family history of malignant neoplasm of kidney: Brother(V16.51, Z80.51) Status:Active Heart problem: Father Status:Active Unknown Family Member Name Dates Details Family history of hypertensi on: Mother(V17.49, Z82.49) Status:Active Family history of malignant neoplasm of kidney: Brother(V16.51, Z80.51) Status:Active Heart problem: Father Status:Active Unknown Family Member Name Dates Details Family history of hypertensi on: Mother(V17.49, Z82.49) Status:Active Family history of malignant neoplasm of kidney: Brother(V16.51, Z80.51) Status:Active Heart problem: Father Status:Active Unknown Family Member Name Dates Details Family history of hypertensi on: Mother(V17.49, Z82.49) Status:Active Family history of malignant neoplasm of kidney: Brother(V16.51, Z80.51) Status:Active Heart problem: Father Status:Active Unknown Family Member Name Dates Details Family history of hypertensi on: Mother(V17.49, Z82.49) Status:Active Family history of malignant neoplasm of kidney: Brother(V16.51, Z80.51) Status:Active Heart problem: Father Status:Active Unknown Family Member Name Dates Details Family history of hypertensi on: Mother(V17.49, Z82.49) Status:Active Family history of malignant neoplasm of kidney: Brother(V16.51, Z80.51) Status:Active Heart problem: Father Status:Active Unknown Family Member Name Dates Details Family history of hypertensi on: Mother(V17.49, Z82.49) Status:Active Family history of malignant neoplasm of kidney: Brother(V16.51, Z80.51) Status:Active Heart problem: Father Status:Active Unknown Family Member Name Dates Details Heart problem: Father Status:Active Family history of malignant neoplasm of kidney: Brother(V16.51, Z80.51) Status:Active Family history of hypertensi on: Mother(V17.49, Z82.49) Status:Active Unknown Family Member Name Dates Details Family history of hypertensi on: Mother(V17.49, Z82.49) Status:Active Family history of malignant neoplasm of kidney: Brother(V16.51, Z80.51) Status:Active Heart problem: Father Status:Active Advance Directives No Advanced Directives Records Found Advance Directive Response Recorded Date/ Time Advance Directives No May 12, 2017 12:05pm Chief Complaint LEXI CASTILLO is being seen for a 9 month follow-up of.LEXI CASTILLO is being seen for a 9 month follow-up of.LEXI CASTILLO is being seen for overdue needs rx. 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,[address] Referred Provider Specialty Orthopedic S urgery Referral Priority Routine Referral Appointment Date 2022-12-04 General Notes Amanda Camejo 08:40:19 AM >received today, patient is scheduled already with Dr Lozano 12/04/22. Sending the p2p at this time Additional Source Comments INFORMATION SOURCE (unrecogn ized section and content) DATE CREATED AUTHOR 12/31/2017 [facility] DATE CREATED AUTHOR AUTHOR'S ORGANIZ ATION 01/07/2018 [facility] DATE CREATED AUTHOR AUTHOR'S ORGANIZ ATION 05/17/2020 [facility] DATE CREATED AUTHOR AUTHOR'S ORGANIZ ATION 02/14/2022 [facility] DATE CREATED AUTHOR AUTHOR'S ORGANIZ ATION 07/26/2022 [facility] DATE CREATED AUTHOR AUTHOR'S ORGANIZ ATION 07/26/2022 [facility] DATE CREATED AUTHOR AUTHOR'S ORGANIZ ATION 03/02/2023 [facility] DATE CREATED AUTHOR AUTHOR'S ORGANIZ ATION 08/22/2023 [facility] Care Teams (unrecognized sec tion and content) Team Status: Active Member Role Status Dates Li Lee MD Primary Care Provider Active Team Status: Inactive Member Role Status Dates Li Lee MD Primary Care Provider Active Ross Colmenares MD Attending Provider Active Goals (unrecognized section and content) Goals may be documented in a n alternate sectionNo InformationNo Information No data available for this sectionNo InformationNo InformationNo InformationNo Information REASON FOR VISIT (unrecogniz ed section and content) *OK TO CONT PLAVIXLEFT INT RA-ARTICULAR HIP JOINT INJECTION /VW3 MONTHS AFTER DR Nina COLMENARES LEFT HIP JOINT INJECTIONNo Information*OK TO CONT PLAVIXBLAKE PTLEFT INTRA-ARTICULAR HIP JOINT INJECTION /VWRecheck Left Hip FOR RECORDS PERTAINING TO PATIENTS WHO ARE OR HAVE BEEN ENROLLED IN A CHEMICAL DEPENDENCY/SUBSTANCEABUSE PROGRAM, SOME INFORMATION MAY BE OMITTED. This clinical summary was aggregated from multiple sources. Caution should be exercised in using it in the provision of clinical care. This summary normalizes information from multiple sources, and as a consequence, information in this document may materially change the coding, format and clinical context of patient data. In addition, data may be omitted in some cases. CLINICAL DECISIONS SHOULD BE BASED ON THE PRIMARY CLINICAL RECORDS. [facility] [employer] [facility]. provides no warranty or guarantee of the accuracy or completeness of information in this document.
[2023-09-01] MEDS: ALLOPURINOL 300 MG TABLET PO (09:11)
[2023-09-01] MEDS: CHOLECALCIFEROL (VITAMIN D3) 125 MCG/5000 UNIT TABLET PO (09:11)
[2023-09-01] MEDS: ASPIRIN 81 MG TABLET.DR PO (09:11)
[2023-09-01] MEDS: CARVEDILOL 25 MG TABLET PO (09:11)
[2023-09-01] MEDS: FUROSEMIDE 40 MG TABLET PO (09:12)
[2023-09-01] MEDS: GABAPENTIN 300 MG CAPSULE PO (09:12)
[2023-09-01] MEDS: CLOPIDOGREL BISULFATE 75 MG TABLET PO (09:12)
[2023-09-01] MEDS: OXYBUTYNIN CHLORIDE 5 MG TAB XL 10 MG PO (09:12)
[2023-09-01] MEDS: POTASSIUM CHLORIDE 10 MEQ ER TABLET PO (09:13)
--- NOTE | 2023-09-01 10:41 | SWNOTE1 ---
SW received message from case management and pt is agreeable to home health. She has had [facility] in past and would like them again. SW sent referral. Referral included face sheet, ER note, H&P, and PT/OT.
--- NOTE | 2023-09-01 10:43 | CM.NOTE ---
Rounds made with Dr. Townsend, discussed with pt about discharge to home today and recommendations for HH services. Pt is in agreement for HH services and has had [facility] in the past and would like them again.
[2023-09-01 11:27] LABS: Glucometer 212 mg/dL (74-106)
--- NOTE | 2023-09-01 11:34 | PM.DS1 ---
DS: Providers Provider Date of admission: 08/31/23 11:32 Primary care physician: MAXINE LLANES Consults: 08/31/23 11:32 Occupational Therapy Eval and Treat Routine Reason for consultation: Weakness Physical Therapy Eval and Treat Routine Reason for consultation: Weakness DS: Diagnosis Discharge Diagnosis (1) Acute UTI: (2) SUSAN (acute kidney injury): (3) Generalized weakness: (4) Diabetes: (5) HTN (hypertension): (6) CAD (coronary artery disease): (7) Peripheral arterial disease: (8) Stage 3b chronic kidney disease (CKD): DS: Summary Hospital Course Hospital Course: Reason for admission: See H&P for details. 78 y/o female to ER with altered mental status and fever. Patient was noticed to have increased weakness and confusion. Developed urinary incontinence and worsening confusion and called EMS. In ER temp 102.3. WBC normal but labs showed SUSAN. UA with UTI and admitted. Hospital course: Started IV fluids and Rocephin. Patient improved overnight. Confusion resolved and back to baseline. Started PT and weakness slowly improved. Urine culture showed UTI due to K. pneumoniae. Ambulating well and discharged home with home health in stable condition. Sensitivity pending at time of discharge and will treat with oral cefdinir. Resume home medication as directed. Follow up with PCP in 7-14 days. Time Spent with Patient Time attestation: Total time spent providing and/or coordinating discharge services: Exam Constitutional Vital Signs, click to edit/add: Last Vital Signs Temp 97.7 F 09/01/23 07:29 Pulse 66 09/01/23 08:00 Resp 16 09/01/23 08:00 BP 156/82 H 09/01/23 07:29 Pulse Ox 93 L 09/01/23 07:29 O2 Del Method Room Air 09/01/23 07:29 Documenting provider has reviewed patient's vital signs: yes Common normals: no apparent distress, oriented x3 and alert HENMT Common normals: normocephalic Eye Common normals: PERRL and EOMs intact bilaterally Respiratory Common normals: normal respiratory effort and clear to auscultation bilaterally Cardio Common normals: regular rate, regular rhythm, no gallops, no murmurs and no rub GI Common normals: Normal to inspection, nondistended, normoactive bowel sounds present and non-tender Extremity Common normals: no pedal edema DS: Data Data Completed and Pending Labs on day of discharge: Labs from last 24 hours 09/01/23 09/01/23 09/01/23 11:26 07:27 05:06 WBC 7.5 RBC 3.37 L Hgb 10.2 L Hct 34.5 L MCV 102.4 H MCH 30.3 MCHC 29.6 L RDW 15.7 H Plt Count 212 MPV 10.9 Neut % (Auto) 60.7 Lymph % (Auto) 24.6 [place] % (Auto) 12.3 H Eos % (Auto) 1.5 Baso % (Auto) 0.5 Neut # (Auto) 4.6 Lymph # (Auto) 1.8 [place] # (Auto) 0.9 H Eos # (Auto) 0.1 Baso # (Auto) 0.0 Abs Immat Gran (auto) 0.03 Imm/Tot Granulo (auto) 0.4 Sodium 140 Potassium 3.4 L Chloride 104 Carbon Dioxide 25.1 Anion Gap 14.3 BUN 29.0 H Creatinine 2.10 H Est GFR ( Amer) 28 L Est GFR (Non-Af Amer) 23 L BUN/Creatinine Ratio 13.8 Glucose 111 H Calcium 9.0 Total Bilirubin 0.2 AST 10 L ALT <6 L Alkaline Phosphatase 47 Total Protein 6.7 Albumin 2.1 L Globulin 4.6 Albumin/Globulin Ratio 0.5 POC Glucose 212 H 102 09/01/23 08/31/23 08/31/23 02:50 21:12 15:36 WBC RBC Hgb Hct MCV MCH MCHC RDW Plt Count MPV Neut % (Auto) Lymph % (Auto) [place] % (Auto) Eos % (Auto) Baso % (Auto) Neut # (Auto) Lymph # (Auto) [place] # (Auto) Eos # (Auto) Baso # (Auto) Abs Immat Gran (auto) Imm/Tot Granulo (auto) Sodium Potassium Chloride Carbon Dioxide Anion Gap BUN Creatinine Est GFR ( Amer) Est GFR (Non-Af Amer) BUN/Creatinine Ratio Glucose Calcium Total Bilirubin AST ALT Alkaline Phosphatase Total Protein Albumin Globulin Albumin/Globulin Ratio POC Glucose 146 H 139 H 180 H Preliminary micro results at discharge 08/30/23 20:20 Urine Culture - Preliminary Urine,Clean Catch Klebsiella pneumoniae Discharge Plan Discharge Disposition: Home Health Service Condition: Good Discharge Medications: New cefdinir 300 mg capsule 300 mg PO BID 10 Days Qty: 20 0RF Continued allopurinol 300 mg tablet 300 mg PO DAILY aspirin 81 mg tablet,delayed release (DR/EC) 81 mg PO DAILY carvedilol 25 mg tablet 25 mg PO BID cholecalciferol (vitamin D3) 125 mcg (5,000 unit) tablet 125 mcg PO DAILY clopidogrel 75 mg tablet 75 mg PO DAILY furosemide 40 mg tablet 40 mg PO QAM insulin glargine [Basaglar KwikPen U-100 Insulin] 100 unit/mL (3 mL) insulin pen 50 unit SUBCUT DAILY oxybutynin chloride 10 mg tablet extended release 24hr 10 mg PO DAILY potassium chloride 10 mEq tablet extended release 10 meq PO DAILY rosuvastatin 5 mg tablet 5 mg PO DAILY gabapentin 300 mg capsule 300 mg PO BID insulin aspart U-100 [Novolog FlexPen U-100 Insulin] 100 unit/mL (3 mL) insulin pen 1 sliding scale dose SUBCUT ACHS Activity: resume usual activities as tolerated Diet: advance to your usual diet Patient Instructions: Acute Kidney Injury (DC), Urinary Tract Infection in Older Adults (DC) Forms: Portal Instructions Follow Up Appointments: @ 10:40am with Maxine Llanes NP [phone]
--- NOTE | 2023-09-01 11:35 | PC.NURSE ---
IV removed site clear catheter intact
--- NOTE | 2023-09-01 11:43 | CM.NOTE ---
Important Message From Medicare discussed with pt, pt verbalizes understanding and signs paper. Original given to pt and copy placed on pt's chart.
[2023-09-01] MEDS: INSULIN ASPART 300 UNIT/3 ML PEN SUBQ (11:44)
--- NOTE | 2023-09-01 13:25 | SWNOTE1 ---
EDY received call back from [facility] and they are able to accept. EDY sent dc med rec, CRF, and dc summary to [facility]. CRF placed on chart.
== END 2023-09-01 12:56 | disposition home health service (06) | DRG 690 ==
LOC: ER 20:09 → MS 09-01 08:00
PROVIDERS: Nurse Practitioner Acute Care; Admitting Provider Family Medicine; Emergency Provider Internal Medicine; PCP Nurse Practitioner; Visit Provider Family Medicine
DX: N39.0 Urinary tract infection, site not specified (principal); N17.9 Acute kidney failure, unspecified; R53.1 Weakness; E11.22 Type 2 diabetes mellitus with diabetic chronic kidney disease; N18.32 Chronic kidney disease, stage 3b; I12.9 Hypertensive chronic kidney disease with stage 1 through stage 4 chronic kidney disease, or unspecified chronic kidney disease; I25.10 Atherosclerotic heart disease of native coronary artery without angina pectoris; E11.51 Type 2 diabetes mellitus with diabetic peripheral angiopathy without gangrene; B96.1 Klebsiella pneumoniae [K. pneumoniae] as the cause of diseases classified elsewhere; Z79.82 Long term (current) use of aspirin; Z79.4 Long term (current) use of insulin; Z79.899 Other long term (current) drug therapy
CPT/HCPCS: 36415; 51702; 71045; 80053; 81001; 82948; 83605; 83690; 84145; 84484; 85025; 87040; 87086; 87150; 87186; 93005; 96361; 96365; 96366; 97161; 97165; 99285; G0378; J0696

== ENCOUNTER 2023-09-15 13:04 | Outpatient (REF) | payer MEDICARE, SELFPAY ==
--- OUTSIDE RECORDS SUMMARY | 2023-09-15 13:27 | XMS_ITS | CCD ---
Author Name Unknown Address [address] [place] [address] Organization [facility] Care Team Providers Care Slate Trimmer Name Role Phone BLAKE KUO Unavailable Unavailable ROSA, RADHA Unavailable Unavailable BLAKE KUO Unavailable Unavailable ROSA, RADHA Unavailable Unavailable PHYSICIAN, DEFAULT Unavailable Unavailable PHYSICIAN, DEFAULT Unavailable Unavailable Rosa, Radha Conley Unavailable Unavailable Unavailable ROSA, DR RADHA Conley Primary Care Unavailable LEE, DR RADHA Conley Admitting Unavailable LEE, DR RADHA Conley Attending Unavailable LEE, DR RADHA Conley Consulting Unavailable West, DR Ren Consulting Unavailable LEE, DR RADHA Conley Primary Care Unavailable LEE, DR RADHA Conley Admitting Unavailable LEE, DR RADHA Conley Attending Unavailable LEE, DR RADHA Conley Primary Care Unavailable LEE, DR RADHA Conley Admitting Unavailable LEE, DR RADHA Conley Attending Unavailable LEE, DR RADHA Conley Primary Care Unavailable MCGUINN, DR MARKHAM Admitting Unavailable MCGUINN, DR MARKHAM Attending Unavailable MCGUINN, DR MARKHAM Consulting Unavailable LEE, DR RADHA Conley Consulting Unavailable LEE, DR RADHA Conley Primary Care Unavailable LEE, DR RADHA Conley Admitting Unavailable LEE, DR RADHA Conley Attending Unavailable McGuinn IIShahrzad Referring Unav ailable Radha Lee Primary Care Unavailable McGuinn Shahrzad GUILLERMO Attending Unav ailable McGuinn IIShahrzad Referring Unav ailable Lee, Radha Miller Primary Care Unavailable McGuinprudence GUILLERMO, Shahrzad Green Attending Unav ailable MD Radha Lee Primary Care Provider MD Ross Colmenares Attending Provider Ross Colmenares Unavailable Maxine Llanes Primary Care Physician Da Lozano II Attending Unavaildarcy e Da Lozano II Admitting Unavaildarcy e Radha Lee Primary Care Unavailable Ross Colmenares Admitting Unavailable Radha Lee Primary Care Unavailable Ross Colmenares Attending Unavailable Da Lozano II Unavailable [phone] Shraddha, Maxine L Attending Unavailable Shraddha, Maxine L Attending Unavailable Shraddha, Maxine L Attending Unavailable Shraddha, Maxine L Attending Unavailable Shraddha, Maxine L Attending Unavailable Shraddha, Maxine L Attending Unavailable Shraddha, Maxine L Attending Unavailable Shraddha, Maxine L Attending Unavailable Shraddha, Maxine L Admitting Unavailable Shraddha, Maxine L Attending Unavailable Shraddha, Maxine L Admitting Unavailable Shraddha, Maxine L Attending Unavailable Shraddha, Maxine L Admitting Unavailable Shraddha, Maxine L Attending Unavailable Shraddha, Maxine L Attending Unavailable Shraddha, Maxine L Attending Unavailable Allergies Allergy Classification Reported Allergen(s) Allergy Type Date of Onset Reaction(s) Facility (13 sources) Angiotensin Converting Enzyme (Dez) Inhibitors; Translations: [DEZ Inhibitors] Allergy to drug (finding) Hyperkalemia, Other [place] [address] DO Work Phone: (15 sources) atorvastatin; Translations: [atorvastatin] Drug Allergy Myalgia [facility] (13 sources) Hmg-Coa Reductase Inhibitors (Statins); Translations: [Statins] Allergy to drug (finding) Myalgia [place] [address] DO Work Phone: (5 sources) rosuvastatin; Translations: [rosuvastatin] Drug Allergy Myalgia [place] [address] DO Work Phone: (13 sources) Spironolactone; Translations: [spironolactone] Drug Allergy Hyperkalemia, Other [place] [address] DO Work Phone: (1 source) Iodine (And Iodine Containting Drugs) Drug allergy (disorder) [facility] (1 source) Pravastatin Drug Allergy [facility] (2 sources) Simvastatin Drug Allergy [facility] (1 source) Sulfonamides (Antibiotic) Drug allergy (disorder) [facility] (6 sources) Adhesive Tape Drug allergy rash [employer] Other (2 sources) Pravastatin; Translations: [pravastatin] Drug Allergy Unknown [facility] Medications Current Medications Medication Drug Class(es) Dates [...] 1 tablet by dayo th once daily Aspirin Low Dose 81 MG Oral Tablet Delayed Release TAKE 1 TABLET Daily Quantity: 90 Refills: 3 Ordered: 08-Aug-2022 Shahrzad Ruano MD Start : 10-Sep-2021 Active Fill at patients request take 1 tablet by dayo th every twenty-four hours Aspirin 81 MG 1 [...] Oral, # 90 cap(s), Refills(s) 1, Pharmacy: [facility], 140.6, cm, 02/10/23 11:29:00 EDT, Height/Length Dosing, 79.2, kg, 02/10/23 11:29:00 EDT, Weight Dosing Start Date: 02/10/23 Status: Ordered Start: 09-11-2017 take 1 capsule by mo uth once daily Cholecalciferol (Vitamin D3) (Vitamin D3) [...] 2017 1:00am take 1 capsule by mo [facility] every twenty-four hours Colace 100 MG 1 [...] Start: 06-15-2021 take 1 capsule by mo uth twice daily Gabapentin 300 MG Oral Capsule [...] 25, 2017 11:51am take 1 capsule by wa ut every twenty-four hours Gabapentin 300 MG [...] Daily, # 15 mL, Refills(s) 2, [facility] [place] [place] [address], 140.6, cm, 02/10/23 11:29:00 EDT, Height/Length Dosing, 79.2, kg, 02/10/23 11:29:00 EDT, Weight Dosing Start Date: 02/10/23 Status: Ordered Start: 02-07-2023 Basaglar KwikP en 100 units/mL subcutaneous solution See Instructions, 50 units daily, # 15 mL, Refills(s) 0, Pharmacy: [facility] Start Date: 02/07/23 Status: Ordered Start: 01-31-2021 [...] Daily, # 90 tab(s), Refills(s) 0, Pharmacy: [facility] 1155, 140.6, cm, 02/10/23 11:29:00 EDT, Height/Length [...] Daily, # 90 tab(s), Refills(s) 0, Pharmacy: [facility] 1155, 140.6, cm, 02/10/23 11:29:00 EDT, Height/Length Dosing, 79.2, kg, 02/10/23 11:29:00 EDT, Weight Dosing Start Date: 02/10/23 Status: Ordered Start: 06-23-2017 take 1 tablet by dayo th at bedtime Rosuvastatin Calcium 5 MG Oral Tablet TAKE ONE TABLET BY MOUTH AT BEDTIME Quantity: 90 Refills: 3 Ordered: 02-Nov-2021 Shahrzad Ruano MD Start : 17-Jan-2021 Active take [...] hours Quantity: 60 Refills: 0 Ordered: 19-Dec-2016 Veronica Mcfadden Active Multiple Vitamins/Minerals TABS (10 sources) Multiple Vitamins/Minerals TABS TAKE 1 TABLET DAILY. Quantity: 0 Refills: 0 Ordered: 19-Dec-2016 DO Active spironolactone 25 mg oral tablet (12 sources) Aldosterone Antagonist Start: take 1 tablet by mouth once daily Spironolactone 25 MG Oral Tablet TAKE 1 TABLET DAILY. Quantity: 90 Refills: 3 Ordered: 02-Nov-2021 Shahrzad Ruano MD Start : 02-Nov-2021 Active new [...] disease, unspecified; Translations: [Atherosclerotic heart disease of [place] coronary artery without angina pectoris] Onset: 8 [...] Unclassified (2 sources) Athscl heart disease of [place] coronary artery w/o ang pctrs / I25.10(ICD-9) Onset: 8 Unclassified (1 source) Abnormal electrocardiogram [ECG] [EKG] / R94.31(ICD-9) Onset: 8 Unclassified (1 source) Presence of aortocoronary bypass graft / Z95.1(ICD-9) Onset: 8 Unclassified (1 source) Old myocardial infarction / I25.2(ICD-9) Onset: 8 Unclassified (1 source) Patient encounter status 02-10-2023 Unclassified (1 source) Pain in left hip; Translations: [Pain in left hip] Onset: 3 Past or Other Problems Problem Classification Problem Date Documented Da te Episodic/Chronic Spondylosis; intervertebral disc disorders; other back problems (2 sources) Sciatica, unspecified side; Translations: [Sciatica, left side] Onset: 10-18-2021 Episodic Unclassified (1 source) Other low back pain M54.59 Results Test Name Value Interpretation Reference Range Facil ity ECG 12-Leadon 09-09-2023 ECG 12-Lead [id number] #1.00TIFF Normal [facility] Home Health Recordson 2023 Home Health Records [id number] #1.00TIFF Normal [facility] ED Note-Physicianon 09-01-19 ED Note-Physician [id number] #1.00TIFF [facility] RAD - MISCon 09-01-2023 RAD - MISC [id number] #1.00TIFF [facility] Ambulatory Visit Summaryon 0 08-21-2023 Ambulatory Visit [...] 3:40 PM EDT With: Maxine Sanchez Where: [facility] [place] Normal [facility] Medicine Office/Clini c Noteon 08-21-2023 Family Medicine Office/Clinic Note Chief Complaint Subsequent [...] of clutter to prevent tripping and/or falling. [place] Advance Directives reviewed, patient has on file with associate material handler office. Patient denies any problems with ADL?s [...] monitor f (more content not included)... Normal [facility] Comment on above: Result Comment: Elec tronically Signed By: Maxine Sanchez\.br\Date and Time Signed: 08/21/23 09:12 EST\.br\Electronically Co-Signed By: Rex Lyles\.br\Date and Time Co-Signed: 08/21/23 08:13 EST Family [...] aspirin, statin therapy? Yes Foot Exam: done recently(rex getting records) Eye Exam: Last A1c: Hgb [...] EST, Weight Dosing HgbA1c Lab Specimen Collect [id number] 3. 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 Normal [facility] Comment on above: Result Comment: Elec tronically Signed By: Maxine Sanchez\.br\Date and Time Signed: 08/21/23 08:02 EST Formson 08-21-2023 Forms [id number] #1.00TIFF [facility] [id number] 08-21-2023 HbA1c (Bld) [Mass fraction] 8.2 % High <=5.9 [facility] Comment on above: Performed By: #### 7 [id number] ####[facility] [address] [place] [address] Patient Educationon 08-21-19 24 Patient Education Caregiving [...] night-lights. ? Place frequently used items in ofxv-hm-qfvme places. Lower the shelves around your home [...] the way. ? Do not use floor romanian or wax that makes floors slippery. If [...] include working with a physical therapist or telecommunication engineer to improve your strength, balance, and endurance. Where to find more information ? Centers for Disease Control and Prevention, [place]: www.cdc.gov ? National [place] on Aging: www.jasmina.nih.gov Contact a health care [...] your health ca (more content not included)... Normal [facility] Ambulatory Visit Summaryon 0 08-20-2023 Ambulatory Visit Summary LEXI TATUM :1945 Visit Date:08/20/2023 Ambulatory Visit Instructions Your Diagnosis Chronic kidney disease, stage 3 unspecified Your Care Team Attending Physician - Maxine Sanchez Primary Care Physician - Maxine Sanchez This Is Your Medications List Misc Prescription ([facility]) acetaminophen (Tylenol) allopurinol (allopurinol 300 [...] 3:40 PM EDT With: Maxine Sanchez Where: [facility] Ambulatory Visit Summary LEXI TATUM :1945 Visit [...] Units Subcutaneous Every day Unchanged Misc Prescription (Misc DME Prescription) See [...] you for choosing us for your care. Normal [facility] Pre-Visit Planningon 023 Pre-Visit Planning - From: Bibiana Walter To: Maxine Sanchez; Sent: 05/20/2023 08:13:06 EST Subject: Pre-Visit Planning Due Date/Time: 05/20/2023 08:13:00 EST Caller Name: LEXI TATUM; Caller Number: Giovanni , M Good morning Maxine. During a pre-visit planning chart review, [...] feel free to contact me at extension [phone]. Thank you! Bibiana Walter LPN - From: Maxine Sanchez To: Bibiana Walter; Sent: 05/28/2023 14:06:51 EST Subject: RE: Pre-Visit Planning Caller Name: LEXI TATUM; Caller Number: H , M chronic kidney disease stage 3, unspecified Normal [address] [place] [address] Pre-Visit Planning - From: Bibiana Walter To: Maxine Sanchez; Sent: 05/20/2023 08:18:07 EST [...] LPN - From: Maxine Sanchez To: Bibiana Walter; Sent: 05/28/2023 13:26:36 EST Subject: RE: Pre-Visit Planning Caller Name: LEXI TATUM; Caller Number: , M class 3 obesity with Type 1 diabetes and hypercholesterolemia Normal [address] [place] [address] Ambulatory Visit Summaryon 1 07-21-2022 Ambulatory Visit Summary LEXI TATUM :1945 Visit Date:05/21/2023 Ambulatory Visit Instructions Your Diagnosis Type 1 diabetes mellitus with hypercholesterolemia Long-term insulin use Former smoker BMI 40.0-44.9, adult Your Care Team Attending Physician - Maxine Sanchez Primary Care Physician - Maxine Sanchez This Is Your Medications List Misc Prescription ([facility] Prescription) allopurinol (allopurinol 300 mg Tab) [...] 11:00 AM EST With: Maxine Sanchez Where: [facility] [place] Normal [facility] Medicine Office/Clini c Noteon 05-21-2023 Family Medicine [...] 3 months. Ordered: HgbA1c Lab Specimen Collect [id number] 2. Long-term insulin use (Z79.4: [facility] (current) use of insulin) see above Ordered: HgbA1c Lab Specimen Collect [id number] 3. Former smoker (Z87.891: Personal history of [...] virus vaccine, inactivated 07/03/2022 Recorded SARS-CoV-2 (COVID-19) [id number].[id number] 06/17/2022 Recorded 2023-02-10: TPV75 SARS-CoV-2 (COVID-19) mRNA [...] Recorded pneumococcal 13-valent vaccine 10/30/2016 Recorded Normal [facility] Comment on above: Result Comment: Elec tronically Signed By: Maxine Sanchez\.mane\Date and Time Signed: 05/21/23 13:14 EST [id number] 05-21-2023 HbA1c (Bld) [Mass fraction] 8.7 % High <=5.9 [facility] Comment on above: Performed By: #### 7 [id number] ####[facility] [address] [place] [address] Ambulatory Visit Summaryon 0 03-05-2023 Ambulatory Visit [...] Appointments Friday 1:00 PM EDT With: Where: [facility] [place] [id number]- \.br\ Medications\.br\ What How Much When Why [...] incontinence\.br\ Vitamin D deficiency\.br\ Wellness examination\.br\ \.br\ [facility] Family Medicine Office/Clini c Noteon 03-05-2023 Family [...] continue BS log. may consider referral to green pipefitter at that visit. 2. Flank pain (R10.9: [...] virus vaccine, inactivated 07/03/2022 Recorded SARS-CoV-2 (COVID-19) [id number].[id number] 06/17/2022 Recorded 2023-02-10: TPV75 SARS-CoV-2 (COVID-19) mRNA [...] Recorded pneumococcal 13-valent vaccine 10/30/2016 Recorded Normal [facility] Comment on above: Result Comment: Elec tronically Signed By: Maxine Sanchez\.mane\Date and Time Signed: 03/05/23 14:10 EDT Retail - Clinical Noteon Retail - Clinical Note [id number] #1.00CD:127 Normal [facility] Family Medicine Office/Clini c Noteon 02-11-2023 Family Medicine Office/Clinic Note HPI Staff Lexi is a 77 year old female presenting to establish care Establish Care: History: Any previous diagnosis: acute systolic heart failure, CKD stage 4, Diabetic peripheral neuropathy, Vitamin D deficiency, Type 1 diabetes, gout, osteoarthritis, pure hypercholesterolemia History of seeing any specialist: Dr Echeverria [place] heart, Dr Zhang [place] specialist, Pain Management Dr Trent Baez hip injections, Dr Rust Hemodialysis Rn When was your last doctors visit: Last provider: Any recent labs: 01/30/22 A1c 9.4 Health Maintenance UTD: Colonoscopy: aged out Mammogram: aged out Pelvic/Pap: aged out Acute: Current issues/complaints: Pt would like to discuss Incontinence currently is taking oxybutynin 5mg daily, pt knows she she has to go and is unable to stop flow. Edema: pt would like to discuss pt states Engagement Quality Consultant isn't concerned Pt needs refill on Basaglar, [...] Daily, # 90 tab(s), Refills(s) 0, Pharmacy: [facility], 140.6, cm, 02/10/23 11:29:00 EDT, Height/Length Dosing, 79.2, kg, 02/10/23 11:29:00 EDT, Weight Dosing Automated Diff CBC w/ Auto Diff Comprehensive Metabolic Panel eGFR HgbA1c Lab Specimen Collect [id number] Lipid Panel Thyroid Stimulating Hormone Vitamin D 25 Hydroxy 2. BMI 40.0-44.9, adult (Z68.41: Body mass index [BMI] 40.0-44.9, adult) BMI education complete Ordered: oxybutynin, 10 mg = 1 tab(s), Oral, Daily, # 90 tab(s), Refills(s) 0, Pharmacy: [facility], 140.6, cm, 02/10/23 11:29:00 EDT, Height/Length Dosing, 79.2, kg, 02/10/23 11:29:00 EDT, Weight Dosing Lab Specimen Collect 95853 Vitamin D 25 Hydroxy 3. Former smoker (Z87.891: Personal history of nicotine dependence) continue not smoking Ordered: oxybutynin, 10 mg = 1 tab(s), Oral, Daily, # 90 tab(s), Refills(s) 0, Pharmacy: [facility], 140.6, cm, 02/10/23 11:29:00 EDT, Height/Length Dosing, 79.2, kg, 02/10/23 11:29:00 EDT, Weight Dosing Lab Specimen Collect 56092 Vitamin D 25 Hydroxy 4. Type 1 diabetes (E10.9: Type 1 diabetes mellitus without complications) HGBA1C drawn in office today Ordered: Misc Prescription, Misc DME Prescription, See Instructions, 100 strip(s), 3, True Metrix Test Strips Check AC[facility]HS, [facility], Supply, 140.6, cm, 02/10/23 11:29:00 EDT, Height/Length Dosing, 79.2, kg, 02/10/23 11:29:00 EDT, Weight Dosing oxybutynin, 10 mg = 1 tab(s), Oral, Daily, # 90 tab(s), Refills(s) 0, [facility], 140.6, cm, 02/10/23 11:29:00 EDT, Height/Length Dosing, 79.2, kg, 02/10/23 11:29:00 EDT, Weight Dosing 5. CKD (chronic kidney disease) (N18.9: Chronic kidney disease, unspecified) labs drawn in office today Ordered: oxybutynin, 10 mg = 1 tab(s), Oral, Daily, # 90 tab(s), Refills(s) 0, [facility], 140.6, cm, 02/10/23 11:29:00 EDT, Height/Length Dosing, 79.2, kg, 02/10/23 11:29:00 EDT, Weight Dosing 6. Gout (M10.9: Gout, unspecified) allopurinal refilled Ordered: oxybutynin, 10 mg = 1 tab(s), Oral, Daily, # 90 tab(s), Refills(s) 0, [facility], 140.6, cm, 02/10/23 11:29:00 EDT, Height/Length Dosing, 79.2, kg, 02/10/23 11:29:00 EDT, Weight Dosing 7. Pure hypercholesterolemia (E78.00: Pure hypercholesterolemia , unspecified) lipid panel gardenia in office today Ordered: oxybutynin, 10 mg = 1 tab(s), Oral, Daily, # 90 tab(s), Refills(s) 0, Pharmacy: [facility] (more content not included)... Normal [facility] Comment on above: Result Comment: Elec tronically [...] Follow-Up Appointments Friday 1:00 PM EDT Where: [facility] [place] Normal [facility] Auto Diffon 02-10-2023 Basophils/100 WBC (Bld) 0.4 % Normal 0.0-2.0 [facility] Comment on above: Order Comment: Order Added by Discern Expert. Performed By: #### 2 596306, [id number], 1928524, 85753719, 7164020, 1381223, [id number], 8016806 ####[facility] [address] [place] [address] Basophils/Leukocyt es Auto (Bld) [Pure # fraction] 0.0 E9/L Normal 0.0-0.2 [facility] Comment on above: Order Comment: Order Added by Discern Expert. Performed By: #### 2 491327, [id number], 0066858, 74274263, 7686071, 8490659, [id number], 0471007 ####[facility] [address] [place] [address] Eosinophils/100 WBC (Bld) 2.6 % Normal 0.0-8.0 [facility] Comment on above: Order Comment: Order Added by Discern Expert. Performed By: #### 2 648384, [id number], 0318729, 55623354, 7978492, 6497136, 805865189, 9401882 ####[address] [address] Eosinophils/Leukoc ytes Auto (Bld) [Pure # fraction] 0.2 E9/L Normal 0.0-0.5 [facility] Comment on above: Order Comment: Order Added by Discern Expert. Performed By: #### 2 534022, [id number], 6389944, 66577966, 7790864, 1593440, 879411533, 7160553 ####[facility] [address] [place] [address] Lymphocytes/100 WBC (Bld) 23.0 % Normal 14.0-50.0 [facility] Comment on above: Order Comment: Order Added by Discern Expert. Performed By: #### 2 116111, 741472880, 2540799, 61459710, 9858899, 5075679, 110646304, 3224810 ####[place] [address] [place] [address] Lymphocytes/Leukoc ytes Auto (Bld) [Pure # fraction] 1.8 E9/L Normal 1.0-4.0 [facility] Comment on above: Order Comment: Order Added by Discern Expert. Performed By: #### 2 219204, [id number], 0451908, 68578369, 5725369, 7485977, 828365493, 9319164 ####[place] [address] [place] [address] Monocytes/100 WBC (Bld) 6.6 % Normal 4.0-14.0 [facility] Comment on above: Order Comment: Order Added by Discern Expert. Performed By: #### 2 561517, 947124904, 2501324, 59655529, 5523685, 9034829, 256866903, 9834188 ####[place] [address] [place] [address] Monocytes/Leukocyt es Auto (Bld) [Pure # fraction] 0.5 E9/L Normal 0.2-1.0 [facility] Comment on above: Order Comment: Order Added by Discern Expert. Performed By: #### 2 893950, 618784490, 3823106, 68916301, 7182121, 4370100, 523991809, 1024658 ####[address] [address] Neutrophils/100 WBC (Bld) 67.4 % Normal 36.0-75.0 [facility] Comment on above: Order Comment: Order Added by Discern Expert. Performed By: #### 2 206806, 156939322, 6875964, 82863821, 2654768, 1335298, 621341784, 5854137 ####[place] [address] [place] [address] Neutrophils/Leukoc ytes Auto (Bld) [Pure # fraction] 5.1 E9/L Normal 2.0-7.5 [facility] Comment on above: Order Comment: Order Added by Discern Expert. Performed By: #### 2 803081, 470531689, 2576869, 69334978, 4547384, 1097316, 988740209, 9167978 ####[place] [address] [place] [address] CBC w/ Auto Diffon 07-31-202 3 Erythrocyte distribution width (RBC) [Ratio] 16.0 % High 10.9-14.2 [facility] Comment on above: Performed By: #### 2 225463, 132416610, 6193404, 08660151, 9534678, 3899842, 089959199, 0508469 ####[facility] [address] [place] [address] Hematocrit (Bld) [Volume fraction] 40.5 % Normal 34.0-46.0 [facility] Comment on above: Performed By: #### 2 645774, 035315911, 1201091, 08685691, 0201271, 6463486, 332405291, 6125044 ####[address] [address] Hemoglobin (Bld) [Mass/Vol] 13.5 g/dL Normal 12.0-16.0 [facility] Comment on above: Performed By: #### 2 040001, 466228101, 3501709, 12855804, 9027615, 3717672, 813334466, 5772294 ####[address] [address] MCH (RBC) [Entitic mass] 31.7 pg Normal 27.0-34.0 [facility] Comment on above: Performed By: #### 2 639502, 853987578, 5455654, 05163457, 0186898, 1142253, 629930257, 8097590 ####[address] [address] MCHC (RBC) [Mass/Vol] 33.3 g/dL Normal 31.4-36.0 [facility] Comment on above: Performed By: #### 2 256723, 412395954, 7101731, 92453689, 1191525, 8597332, 565505890, 4367328 ####[address] [address] MCV (RBC) [Entitic vol] 95.4 fL Normal 80.0-100.0 [facility] Comment on above: Performed By: #### 2 812563, 514755505, 0137832, 25553817, 8463861, 5365341, 319342689, 3534627 ####[facility] [address] [place] [address] Platelet mean volume (Bld) [Entitic vol] 10.1 fL Normal 6.4-10.8 [facility] Comment on above: Performed By: #### 2 300539, 784235769, 9169304, 34079758, 9092487, 0514944, 420370755, 0711368 ####[address] [address] Platelets (Bld) [#/Vol] 192.0 E9/L Normal 150.0-500.0 [facility] Comment on above: Performed By: #### 2 121493, 638310367, 1612657, 46219341, 2391338, 4086138, 900128973, 1838146 ####[address] [address] RBC (Bld) [#/Vol] 4.2 E12/L Low 4.3-5.9 [facility] Comment on above: Performed By: #### 2 694724, 534249386, 6742056, 35808141, 5889563, 1082159, 675304931, 7330924 ####[address] [address] WBC corrected for nucl RBC Auto (Bld) [#/Vol] 7.6 E9/L Normal 4.0-11.0 [facility] Comment on above: Performed By: #### 2 433862, 295086726, 2819671, 33368966, 5484991, 1120616, 913207009, 4445020 ####[address] [address] CHEMISTRYOrdered By: SYSTEM SYSTEM on 02-10-2023 25-hydroxyvitamin D3 [Mass/Vol] 52.9 ng/mL Normal 30.0 - 100.0 ng/mL [facility] Remisol Albumin [Mass/Vol] 3.6 g/dL Normal 3.3 - 5.0 gm/dL [facility] Remisol Albumin/Globulin [Mass ratio] 1.0 {ratio} Low [...] rate/Area] 39 mL/min/1.73 m2 Low >=59mL/min/1.73 m2 [facility] Chem S Globulin (S) [Mass/Vol] 3.6 g/dL Normal 1.4 - 4.0 gm/dL [facility] Remisol Glucose [Mass/Vol] 235 mg/dL High 55 - 199 mg/dL [facility] Potassium [Moles/Vol] 4.0 mmol/L Normal 3.5 - 5.3 mmol/L [facility] Protein [Mass/Vol] 7.2 g/dL Normal 6.0 - 7.8 gm/dL [facility] Sodium [Moles/Vol] 137 mmol/L Normal 135 - 145 mmol/L [facility] Triglyceride [Mass/Vol] 218 mg/dL High <=149mg/dL [facility] TSH Qn 1.79 m[IU]/L Normal 0.34 - 5.60 mcIU/mL [facility] Urea nitrogen [Mass/Vol] 23 mg/dL High 5 - 21 mg/dL [facility] Urea nitrogen/Creatinin e [Mass ratio] 16 mg/mg Normal 10 - 20 [facility] CHEMISTRYOrdered By: Natalio Kraus ertolasio on 02-10-2023 HbA1c (Bld) [Mass fraction] 10.9 % High <=5.9% [place] ChemAutoSS CMPon 02-10-2023 Albumin [Mass/Vol] 3.6 g/dL Normal 3.3-5.0 [facility] Comment on above: Performed By: #### 2 383127, 490900504, 2043143, 72988343, 6665831, 0470215, 083199091, 0296965 ####[facility] [address] [place] [address] Albumin/Globulin (S) [Mass conc ratio] 1.0 Low 1.1-2.2 [facility] Comment on above: Performed By: #### 2 945275, 124078784, 5446101, 77299950, 2768893, 7202640, 034902090, 8215711 ####[facility] [address] [place] [address] ALP [Catalytic activity/Vol] 57 Int._Unit/L Normal 21-98 [facility] Comment on above: Performed By: #### 2 314844, 072648854, 5248900, 34286611, 2559921, 0639508, 126758994, 1650227 ####[facility] [address] [place] [address] ALT No additional P-5'-P [Catalytic activity/Vol] 12 Int._Unit/L Normal 6-46 [facility] Comment on above: Performed By: #### 2 235751, 172045318, 9980884, 00488409, 7037299, 8817364, 849987084, 0676200 ####[facility] [address] [place] [address] Anion gap [Moles/Vol] 15 mmol/L Normal 6-16 [facility] Comment on above: Performed By: #### 2 722395, 403710097, 3801939, 80177641, 9959212, 3218155, 706603994, 1862705 ####[address] [address] AST [Catalytic activity/Vol] 18 Int._Unit/L Normal 5-43 [facility] Comment on above: Performed By: #### 2 237343, 753817456, 7851370, 27656008, 2053196, 3929794, 435286722, 3749306 ####[facility] [address] [place] [address] Bilirubin [Mass/Vol] 0.5 mg/dL Normal 0.0-1.1 [facility] Comment on above: Performed By: #### 2 374332, 849513184, 5335502, 74348530, 4357321, 4665205, 190560401, 3730355 ####[address] [place] [address] Calcium [Mass/Vol] 9.8 mg/dL Normal 8.9-11.1 [facility] Comment on above: Performed By: #### 2 240581, 511167525, 7897516, 06907519, 7770347, 0772592, 526255376, 0773669 ####[facility] [address] [place] [address] Chloride [Moles/Vol] 98 mmol/L Low 101-111 [facility] Comment on above: Performed By: #### 2 693403, 104704023, 1181582, 83919655, 6013012, 8547482, 968931507, 3983075 ####[facility] [address] [place] [address] CO2 [Moles/Vol] 28 mmol/L Normal 21-31 [facility] Comment on above: Performed By: #### 2 523293, 921950399, 1884947, 43618614, 9382011, 4435549, 232581158, 6267107 ####[facility] [address] [place] [address] Creatinine [Mass/Vol] 1.4 mg/dL High 0.5-1.3 [facility] Comment on above: Performed By: #### 2 911575, 556448773, 3514576, 84219866, 3197873, 0167743, 513444296, 2947004 ####[facility] [address] [place] [address] Globulin (S) [Mass/Vol] 3.6 g/dL Normal 1.4-4.0 [facility] Comment on above: Performed By: #### 2 449690, 087268207, 4544441, 02834416, 1786180, 3175222, 385230218, 7269104 ####[facility] [address] [place] [address] Glucose [Mass/Vol] 235 mg/dL High 55-199 [facility] Comment on above: Result Comment: If t his glucose result represents a fasting glucose, interpretation should refer to the following reference range: 55-99 mg/dL Performed By: #### 2 846816, 409776779, 0604475, 91582342, 7542047, 3059280, 989658214, 2203732 ####[facility] [address] [place] [address] Potassium [Moles/Vol] 4.0 mmol/L Normal 3.5-5.3 [facility] Comment on above: Performed By: #### 2 907149, 228520164, 0105662, 70258990, 6614234, 2525270, 539340638, 4057582 ####[facility] [address] [place] [address] Protein [Mass/Vol] 7.2 g/dL Normal 6.0-7.8 [facility] Comment on above: Performed By: #### 2 317683, 706159734, 4438545, 88979033, 0640750, 5195927, 081013578, 2513973 ####[facility] [address] [place] [address] Sodium [Moles/Vol] 137 mmol/L Normal 135-145 [facility] Comment on above: Performed By: #### 2 629917, 160120709, 4834960, 83660715, 7967546, 6987303, 966305215, 8744325 ####[facility] [address] [place] [address] Urea nitrogen [Mass/Vol] 23 mg/dL High 5-21 [facility] Comment on above: Performed By: #### 2 979836, 009054169, 5410587, 77055111, 9508559, 9915148, 886468882, 2137339 ####[facility] [address] [place] [address] Urea nitrogen/Creatinin e [Mass ratio] 16 No Units Normal 10-20 [facility] Comment on above: Performed By: #### 2 288940, 357455902, 4536644, 17337443, 6696375, 3025973, 347016477, 6903012 ####[facility] [address] [place] [address] HEMATOLOGYOrdered By: SYSTEM SYSTEM on 02-10-2023 Basophils/100 [...] 10.1 fL Normal 6.4 - 10.8 fL [place] HemeAutoSS Platelets (Bld) [#/Vol] 192.0 E9/L Normal 150.0 - 500.0 E9/L [place] HemeAutoSS RBC (Bld) [#/Vol] 4.2 E12/L Low 4.3 - 5.9 E12/L [facility] HemeAutoSS WBC corrected for nucl RBC Auto (Bld) [#/Vol] 7.6 E9/L Normal 4.0 - 11.0 E9/L [place] HemeAuto[facility] FftD0gph 02-10-2023 HbA1c (Bld) [Mass fraction] 10.9 % High <=5.9 [facility] Comment on above: Performed By: #### 2 436325, 730313499, 1345931, 70039964, 6927474, 8062129, 974007781, 5983916 ####[facility] [address] [place] [address] Lipid Panelon 02-10-2023 Cholesterol [Mass/Vol] 196 mg/dL Normal 120-200 [facility] Comment on above: Performed By: #### 2 558950, 197495522, 7574882, 14245940, 2179104, 1918347, 207417855, 9034909 ####[facility] [address] [place] [address] Cholesterol in HDL [Mass/Vol] 50 mg/dL Invalid Interpretation Code [facility] Comment on above: Result Comment: HDL > or equal to 60 mg/dL: Low cardiovascular risk HDL < 40 mg/dL : High cardiovascular risk Performed By: #### 2 609630, 390406706, 3766900, 28846363, 7944897, 6188694, 607724688, 5131665 ####[facility] [address] [place] [address] Cholesterol in LDL [Mass/Vol] 106 mg/dL Normal <=129 [facility] Comment on above: Performed By: #### 2 564238, 023454980, 7544783, 63057400, 5595908, 5439105, 019547076, 0848511 ####[facility] [address] [place] [address] Cholesterol in VLDL [Mass/Vol] 44 mg/dL High 7-40 [facility] Comment on above: Performed By: #### 2 396473, 460315036, 2066983, 67168590, 3449114, 3762157, 891385437, 8603364 ####[facility] [address] [place] [address] Triglyceride [Mass/Vol] 218 mg/dL High <=149 [facility] Comment on above: Performed By: #### 2 913125, 302920508, 0420756, 72008682, 9475297, 7625354, 243130491, 4298181 ####[facility] [address] [place] [address] TSHon 02-10-2023 TSH Qn 1.79 m[IU]/L Normal 0.34-5.60 [facility] Comment on above: Performed By: #### 2 223869, 820029563, 4210838, 86307440, 9532634, 3548278, 243903175, 0156104 ####[facility] [address] [place] [address] Vitamin D 25 Hydroxyon 02-10 25-hydroxyvitamin D3 [Mass/Vol] 52.9 ng/mL Normal 30.0-100.0 [facility] Comment on above: Result Comment: Vit rosario D deficiency has been defined as a level of serum 25-OH vitamin D less than 20 ng/mL (1,2) by the [place] of [employer] and an Endocrine Society practice guideline. The Endocrine Society further defined vitamin D insufficiency as a level between 21 and 29 ng/mL (2). 1. IOM ([place] of [employer]). 2010. Dietary reference intakes for calcium and D. [place]: The National Academies Press. 2. Laney MF, Abhijeet NC, Stacey CHATMAN, et al. Evaluation, treatment, and prevention of vitamin D deficiency: an Endocrine Society clinical practice guideline. JCEM. 2011 Jan; 96 (7):1911-30. Performed By: #### 2 889018, 085234714, 0384425, 69990935, 5409891, 1214706, 272814472, 6353789 ####[facility] [address] [place] [address] eGFRon 02-10-2023 GFR/1.73 sq M.predicted among non-blacks MDRD (S/P/Bld) [Vol rate/Area] 39 mL/min/1.73 m2 Low >=59 [facility] Comment on above: Order Comment: Order added by Discern Expert. Result Comment: Pump Servicer saba kidney disease could be indicated at eGFR's of less than 60 mL/min/1.73m2. Kidney failure is indicated at less than 15 mL/min/1.73m2. Performed By: #### 2 883345, 714285947, 0718542, 91060754, 6636005, 1378472, 958308458, 9825067 ####[facility] [address] [place] [address] XR hip LT 1Von 12-04-2022 XR hip LT 1V [facility] [place] [address] XRay Report Signed Patient: Lexi Spence MR#: [id number] : 1945 Acct:[id number] Age/Sex: 77 / F ADM Date: 12/04/22 Loc: [facility] Room: Type: [facility] Attending Dr: aD Lozano II, MD Copies to: Da Lozano [...] Zayra Juarez M.D.12/04/2022 6:42 PM Dictation Location: RADIO-PC-14 Transcribed By: OMAR 12/04/221841 Dictated By: Zayra Juarez MD 12/04/221840 Signed By: 12/04/221841 Normal [facility] XR hip LT min 2V(w/wo pelvis )*on 11-12-2022 XR hip LT min 2V(w/wo pelvis)* [facility] Main [place] [address] [place] [address] XRay Report Signed Patient: Lexi Spence MR#: [id number] : 1945 Acct:[id number] Age/Sex: 77 / F ADM Date: 11/11/22 Loc: [facility] Room: Type: [facility] Attending Dr: Ross Colmenares MD Copies to: Ross Colmenares MD Ordering Provider: Ross Colmenares MD Date of Service: 11/11/22 XR/XR lumbar spine AP/LAT/FLX/EXT: Other spondylosis with radiculopathy, lumbar region ([id number]) XR/XR hip LT min 2V(w/wo pelvis)*: PAIN [...] Iraheta Jr., D.O.11/12/2022 12:06 PM Dictation Location: RADIO-PC-08 Transcribed By: OMAR 11/12/22 1206 Dictated By: Earnest Iraheta Jr, DO 11/12/22 1159 Signed By: 11/12/22 1206 [facility] Office Visit (Cardiology)on 07-25-2022 Follow-up visit Diagnoses/Problems Assessed S/P CABG x 3 (V45.81) (Z95.1) Ischemic cardiomyopathy (414.8) (I25.5) Hyperlipidemia (272.4) (E78.5) HTN (hypertension) (401.9) (I10) History of angioplasty (V45.89) (Z98.62) History of Dyslipidemia (272.4) (E78.5) CAD, multiple vessel (414.00) (I25.10) History of AK (myocardial infarction) (412) (I25.2) Statin intolerance (995.27) [...] - Retrospective Authorization; Done: 25Jul2022 History of AK (myocardial infarction), HTN (hypertension) Renew: Carvedilol 25 [...] History of angioplasty (V45.89) (Z98.62) History of AK (myocardial infarction) (412) (I25.2) HTN (hypertension) (401.9) [...] TABLET BY MOUTH AT BEDTIME Allergies Medication DEZ Inhibitors Hyperkalemia; RENAL INSUFF.; Recorded By: Jane [...] breath. Gastrointe (more content not included)... Normal [facility] Tobacco Screening.on 023 Adult depression screening assessment No [facility] [address] DO Work Phone: Fall risk assessment a) No falls within the last year [facility] 250 DO Work Phone: Tobacco use status CPHS b) No [facility] 250 DO Work Phone: CBC AUTO DIFFon 01-30-2022 BASO # 0.0 103/ul Normal 0.0-0.1 [facility] Comment on above: Performed By: #### C BC #### [facility] [address] [place] [address] Dr. Yarely Roe Basophils/100 WBC (Bld) 0.4 % Normal 0.2-2.0 [facility] Comment on above: Performed By: #### C BC #### [facility] [address] [place] [address] Dr. Yarely Roe EO # 0.2 103/ul Normal 0.0-0.7 [facility] Comment on above: Performed By: #### C BC #### [facility] [address] [place] [address] Dr. Yarely Roe Eosinophils/100 WBC (Bld) 2.3 % Normal 0.9-7.0 [facility] Comment on above: Performed By: #### C BC #### [facility] [address] [place] [address] Dr. Yarely Roe Erythrocyte distribution width (RBC) [Ratio] 14.8 % Normal 11.0-15.0 [facility] Comment on above: Performed By: #### C BC #### [facility] [address] [place] [address] Dr. Yarely Roe Hematocrit (Bld) [Volume fraction] 42.0 % Normal 36.0-48.0 [facility] Comment on above: Performed By: #### C BC #### [facility] [address] [place] [address] Dr. Yarely Roe Hemoglobin (Bld) [Mass/Vol] 13.7 g/dL Normal 12.0-16.0 [facility] Comment on above: Performed By: #### C BC #### [facility] [address] [place] [address] Dr. Yarely Roe IG # 0.03 10e3/ul Normal 0.00-0.03 [facility] Comment on above: Performed By: #### C BC #### [facility] [address] [place] [address] Dr. Yarely Roe IG % 0.4 % Normal 0.0-0.5 [facility] Comment on above: Performed By: #### C BC #### [facility] [address] [place] [address] Dr. Yarely Roe LYMPH # 1.7 103/ul Normal 1.2-3.8 [facility] Comment on above: Performed By: #### C BC #### [facility] [address] [place] [address] Dr. Yarely Roe Lymphocytes/100 WBC (Bld) 20.7 % Normal 20.5-60.0 [facility] Comment on above: Performed By: #### C BC #### [facility] [address] [place] [address] Dr. Yarely Roe MANUAL DIFF REQ NO Normal [facility] Comment on above: Performed By: #### C BC #### [facility] [address] [place] [address] Dr. Yarely Roe MCH (RBC) [Entitic mass] 31.9 pg Normal 26.7-34.0 [facility] Comment on above: Performed By: #### C BC #### [facility] [address] [place] [address] Dr. Yarely Roe MCHC (RBC) [Mass/Vol] 32.6 g/dL Normal 29.9-35.2 [facility] Comment on above: Performed By: #### C BC #### [facility] [address] [place] [address] Dr. Yarely Roe MCV (RBC) [Entitic vol] 97.7 fL Normal 81.0-99.0 [facility] Comment on above: Performed By: #### C BC #### [facility] [address] [place] [address] Dr. Yarely Roe MONO # 0.5 103/ul Normal 0.3-0.8 [facility] Comment on above: Performed By: #### C BC #### [facility] [address] [place] [address] Dr. Yarely Roe Monocytes/100 WBC (Bld) 5.9 % Normal 1.7-12.0 [facility] Comment on above: Performed By: #### C BC #### [facility] [address] [address] [address] Yarely Roe NEUT # 5.7 103/ul Normal 1.4-6.5 [facility] Comment on above: Performed By: #### C BC #### [facility] [address] [place] [address] Dr. Yarely Roe Neutrophils/100 WBC (Bld) 70.3 % Normal 43.0-75.0 [facility] Comment on above: Performed By: #### C BC #### [facility] [address] [place] [address] Dr. Yarely Roe Platelet mean volume (Bld) [Entitic vol] 11.0 fL Normal 9.5-13.5 [facility] Comment on above: Performed By: #### C BC #### [facility] [address] [place] [address] Dr. Yarely Roe PLT 196 103/ul Normal 150-450 [facility] Comment on above: Performed By: #### C BC #### [facility] [address] [place] [address] Dr. Yarely Roe RBC 4.30 106/ul Normal 4.20-5.40 [facility] Comment on above: Performed By: #### C BC #### [facility] [address] [place] [address] Dr. Yarely Roe WBC 8.1 103/ul Normal 4.0-11.0 [facility] Comment on above: Performed By: #### C BC #### [facility] [address] [place] [address] Dr. Yarely Roe GLYCOHEMOGLOBIN A1Con 2021 ADA RECOMMENDATION SEE BELOW Normal [facility] Comment on above: Result Comment: ADA RECOMMENDED LIMIT 4.0 - 6.0 ADA THERAPEUTIC TARGET < 7.0 ACTION SUGGESTED > 7.0 Performed By: #### A 1C #### [facility] [address] [place] [address] Dr. Yarely Roe Glucose [Mass/Vol] 223 mg/dL Normal [facility] Comment on above: Performed By: #### A 1C #### [facility] [address] [address] [address] Yarely Roe HbA1c (Bld) [Mass fraction] 9.4 % Critically high 4.5-6.2 [facility] Comment on above: Performed By: #### A 1C #### [facility] [address] [place] [address] Dr. Yarely Roe PROF CHEM 8 (BAS METB)on Anion gap [Moles/Vol] 13.4 mmol/L Normal [facility] Comment on above: Performed By: #### B MP #### [facility] [address] [place] [address] Dr. Yarely Roe Calcium [Mass/Vol] 9.5 mg/dL Normal 8.5-10.1 [facility] Comment on above: Performed By: #### B MP #### [facility] [address] [place] [address] Dr. Yarely Roe Chloride [Moles/Vol] 101 mmol/L Normal 98-107 [facility] Comment on above: Performed By: #### B MP #### [facility] [address] [address] [address] Yarely Roe CO2 [Moles/Vol] 28.6 mmol/L Normal 21.0-32.0 [facility] Comment on above: Performed By: #### B MP #### [facility] [address] [place] [address] Dr. Yarely Roe Creatinine [Mass/Vol] 1.46 mg/dL Critically high 0.55-1.02 [facility] Comment on above: Performed By: #### B MP #### [facility] [address] [address] [address] Yarely Roe EGFR-AF [place]IZ[place] 42 mL/min/1.73m2 Critically low >=60 [facility] Comment on above: Performed By: #### B MP #### [facility] [address] [place] [address] Dr. Yarely Roe EGFR-NON AF CITIZEN [place] 35 mL/min/1.73m2 Critically low >=60 [facility] Comment on above: Performed By: #### B MP #### [facility] [address] [address] [address] Yarely Roe Glucose [Mass/Vol] 288 mg/dL Critically high 74-106 [facility] Comment on above: Performed By: #### B MP #### [facility] [address] [address] [address] Yarely Roe Potassium [Moles/Vol] 4.0 mmol/L Normal 3.5-5.1 [facility] Comment on above: Performed By: #### B MP #### [facility] [address] [address] [address] Yarely Roe Sodium [Moles/Vol] 139 mmol/L Normal 136-145 [facility] Comment on above: Performed By: #### B MP #### [facility] [address] [address] [address] Yarely Roe Urea nitrogen [Mass/Vol] 27.0 mg/dL Critically high 7.0-18.0 [facility] Comment on above: Performed By: #### B MP #### [facility] [address] [address] [address] Yarely Roe Urea nitrogen/Creatinin e [Mass ratio] 18.5 mg/mg Normal [facility] Comment on above: Performed By: #### B MP #### [facility] [address] [address] [address] Yarely Roe PROF CHEM 8 (BAS METB)on Anion gap [Moles/Vol] 11.9 mmol/L Normal [facility] Comment on above: Performed By: #### B MP #### [facility] [address] [address] [address] Yarely Roe Calcium [Mass/Vol] 9.1 mg/dL Normal 8.5-10.1 [facility] Comment on above: Performed By: #### B MP #### [facility] [address] [address] [address] Yarely Roe Chloride [Moles/Vol] 100 mmol/L Normal 98-107 [facility] Comment on above: Performed By: #### B MP #### [facility] [address] [address] [address] Yarely Roe CO2 [Moles/Vol] 30.8 mmol/L Normal 21.0-32.0 [facility] Comment on above: Performed By: #### B MP #### [facility] [address] [address] [address] Yarely Roe Creatinine [Mass/Vol] 1.27 mg/dL Critically high 0.55-1.02 [facility] Comment on above: Performed By: #### B MP #### [facility] [address] [address] [address] Yarely Roe EGFR-AF [place]IZ[place] 50 mL/min/1.73m2 Critically low >=60 [facility] Comment on above: Performed By: #### B MP #### [facility] [address] [address] [address] Yarely Roe EGFR-NON AF [place]IZ[place] 41 mL/min/1.73m2 Critically low >=60 [facility] Comment on above: Performed By: #### B MP #### [facility] [address] [address] [address] Yarely Roe Glucose [Mass/Vol] 166 mg/dL Critically high 74-106 [facility] Comment on above: Performed By: #### B MP #### [facility] [address] [address] [address] Yarely Roe Potassium [Moles/Vol] 3.7 mmol/L Normal 3.5-5.1 [facility] Comment on above: Performed By: #### B MP #### [facility] [address] [address] [address] Yarely Roe Sodium [Moles/Vol] 139 mmol/L Normal 136-145 [facility] Comment on above: Performed By: #### B MP #### [facility] [address] [address] [address] Yarely Roe Urea nitrogen [Mass/Vol] 20.0 mg/dL Critically high 7.0-18.0 [facility] Comment on above: Performed By: #### B MP #### [facility] [address] [place], [place] [address] Dr. Yarely Roe Urea nitrogen/Creatinin e [Mass ratio] 15.7 mg/mg Normal [facility] Comment on above: Performed By: #### B MP #### [facility] [address] [place], [place] [address] Dr. Yarely Roe Office Visit (Cardiology)on 11-02-2021 Follow-up visit Diagnoses/Problems Assessed Hyperlipidemia (272.4) (E78.5) Ischemic cardiomyopathy (414.8) (I25.5) HTN (hypertension) (401.9) (I10) History of AK (myocardial infarction) (412) (I25.2) CAD, multiple vessel [...] Metabolic Panel; Status:Active - Retrospective Authorization; Requested for:[id number]; CAD, multiple vessel, Hyperlipidemia Renew: Rosuvastatin Calcium 5 MG Oral Tablet; TAKE ONE TABLET BY MOUTH AT BEDTIME Class 1 obesity with body mass index (BMI) of 34.0 to 34.9 in adult Healthy Weight Tips; Status:Complete - Retrospective Authorization; Done: 02Nov2021 Edema Start: Spironolactone 25 MG Oral Tablet; TAKE 1 TABLET DAILY Unlinked Stop: Potassium Chloride ER 20 MEQ Oral Tablet Extended Release Patient Instructions By signing my name below, I, Pio Jurado LPN, attest that this documentation has been prepared under the direction and in the presence of Dr. Shahrzad Ruano MD. All medical record entries made by the [employer] were at my direction and personally dictated [...] TABLET BY MOUTH AT BEDTIME Allergies Medication DEZ Inhibitors Hyperkalemia; RENAL INSUFF.; Recorded By: Jane Way; 07/12/2021 2:24:53 PM (more content not included)... Normal [facility] Tobacco Screening.on 022 Adult depression screening assessment No [facility] [employer] 250 DO Work Phone: Fall risk assessment a) No falls within the last year [facility] [employer] 250 DO Work Phone: Tobacco use status CPHS b) No [facility] [facility] 250 DO Work Phone: XR LSPINE MIN [...] Vascular calcifications. Right pelvic vascular stent. IMPRESSION: Tvwq-hb-zjcovqyn degenerative changes with minimal anterolisthesis of L4 and L5 Electronically authenticated by: ALISSA RAMIREZ Date: 2021-10-16 07:05 Normal [facility] CBC AUTO DIFFon 10-15-2021 BASO # 0.0 103/ul Normal 0.0-0.1 [facility] Comment on above: Performed By: #### C BC #### [facility] [address] [place] [address] Dr. Yarely Roe Basophils/100 WBC (Bld) 0.3 % Normal 0.2-2.0 [facility] Comment on above: Performed By: #### C BC #### [facility] [address] [place] [address] Dr. Yarely Roe EO # 0.3 103/ul Normal 0.0-0.7 [facility] Comment on above: Performed By: #### C BC #### [facility] [address] [place] [address] Dr. Yarely Roe Eosinophils/100 WBC (Bld) 3.4 % Normal 0.9-7.0 [facility] Comment on above: Performed By: #### C BC #### [facility] [address] [place] [address] Dr. Yarely Roe Erythrocyte distribution width (RBC) [Ratio] 15.1 % Critically high 11.0-15.0 [facility] Comment on above: Performed By: #### C BC #### [facility] [address] [place] [address] Dr. Yarely Roe Hematocrit (Bld) [Volume fraction] 42.1 % Normal 36.0-48.0 [facility] Comment on above: Performed By: #### C BC #### [facility] [address] [place] [address] Dr. Yarely Roe Hemoglobin (Bld) [Mass/Vol] 13.5 g/dL Normal 12.0-16.0 [facility] Comment on above: Performed By: #### C BC #### [facility] [address] [place] [address] Dr. Yarely Roe IG # 0.04 10e3/ul Critically high 0.00-0.03 [facility] Comment on above: Performed By: #### C BC #### [facility] [address] [place] [address] Dr. Yarely Roe IG % 0.4 % Normal 0.0-0.5 [facility] Comment on above: Performed By: #### C BC #### [facility] [address] [place] [address] Dr. Yarely Roe LYMPH # 2.1 103/ul Normal 1.2-3.8 [facility] Comment on above: Performed By: #### C BC #### [facility] [address] [place] [address] Dr. Yarely Roe Lymphocytes/100 WBC (Bld) 22.9 % Normal 20.5-60.0 [facility] Comment on above: Performed By: #### C BC #### [facility] [address] [place] [address] Dr. Yarely Roe MANUAL DIFF REQ NO Normal [facility] Comment on above: Performed By: #### C BC #### [facility] [address] [place] [address] Dr. Yarely Roe MCH (RBC) [Entitic mass] 31.5 pg Normal 26.7-34.0 [facility] Comment on above: Performed By: #### C BC #### [facility] [address] [place] [address] Dr. Yarely Roe MCHC (RBC) [Mass/Vol] 32.1 g/dL Normal 29.9-35.2 [facility] Comment on above: Performed By: #### C BC #### [facility] [address] [place] [address] Dr. Yarely Roe MCV (RBC) [Entitic vol] 98.1 fL Normal 81.0-99.0 [facility] Comment on above: Performed By: #### C BC #### [facility] [address] [place] [address] Dr. Yarely Roe MONO # 0.6 103/ul Normal 0.3-0.8 [facility] Comment on above: Performed By: #### C BC #### [facility] [address] [place] [address] Dr. Yarely Roe Monocytes/100 WBC (Bld) 6.1 % Normal 1.7-12.0 [facility] Comment on above: Performed By: #### C BC #### [facility] [address] [address] [address] Yarely Roe NEUT # 6.2 103/ul Normal 1.4-6.5 [facility] Comment on above: Performed By: #### C BC #### [facility] [address] [place] [address] Dr. Yarely Roe Neutrophils/100 WBC (Bld) 66.9 % Normal 43.0-75.0 [facility] Comment on above: Performed By: #### C BC #### [facility] [address] [place] [address] Dr. Yarely Roe Platelet mean volume (Bld) [Entitic vol] 10.9 fL Normal 9.5-13.5 [facility] Comment on above: Performed By: #### C BC #### [facility] [address] [place] [address] Dr. Yarely Roe PLT 220 103/ul Normal 150-450 [facility] Comment on above: Performed By: #### C BC #### [facility] [address] [place] [address] Dr. Yarely Roe RBC 4.29 106/ul Normal 4.20-5.40 [facility] Comment on above: Performed By: #### C BC #### [facility] [address] [place] [address] Dr. Yarely Roe WBC 9.2 103/ul Normal 4.0-11.0 [facility] Comment on above: Performed By: #### C BC #### [facility] [address] [place] [address] Dr. Yarely Roe GLYCOHEMOGLOBIN A1Con 2021 ADA RECOMMENDATION ADA THERAPEUTIC TARGET 6.0 - 7.0 ACTION SUGGESTED > 7.0 Normal [facility] Comment on above: Performed By: #### A 1C #### [facility] [address] [place] [address] Dr. Yarely Roe Glucose [Mass/Vol] 183 mg/dL Normal [facility] Comment on above: Performed By: #### A 1C #### [facility] [address] [address] [address] Yarely Roe HbA1c (Bld) [Mass fraction] 8.0 % Critically high <=6.0 [facility] Comment on above: Performed By: #### A 1C #### [facility] [address] [address] [address] Yarely Roe PROF 14(COMP METB)on 022 Albumin [Mass/Vol] 3.4 g/dL Normal 3.4-5.0 [facility] Comment on above: Performed By: #### C MP #### [facility] [address] [address] [address] Yarely Roe Albumin/Globulin [Mass ratio] 0.8 {ratio} Normal [facility] Comment on above: Performed By: #### C MP #### [facility] [address] [place] [address] Dr. Yarely Roe ALP [Catalytic activity/Vol] 59 U/L Normal 46-116 [facility] Comment on above: Performed By: #### C MP #### [facility] [address] [place] [address] Dr. Yarely Roe ALT [Catalytic activity/Vol] 9 U/L Critically low 14-59 [facility] Comment on above: Performed By: #### C MP #### [facility] [address] [place] [address] Dr. Yarely Roe Anion gap [Moles/Vol] 11.3 mmol/L Normal [facility] Comment on above: Performed By: #### C MP #### [facility] [address] [place] [address] Dr. Yarely Roe AST [Catalytic activity/Vol] 15 U/L Normal 15-37 [facility] Comment on above: Performed By: #### C MP #### [facility] [address] [place] [address] Dr. Yarely Roe Bilirubin [Mass/Vol] 0.3 mg/dL Normal 0.2-1.3 [facility] Comment on above: Performed By: #### C MP #### [facility] [address] [address] [address] Yarely Roe Calcium [Mass/Vol] 9.4 mg/dL Normal 8.5-10.1 [facility] Comment on above: Performed By: #### C MP #### [facility] [address] [address] [address] Yarely Roe Chloride [Moles/Vol] 97 mmol/L Critically low 98-107 [facility] Comment on above: Performed By: #### C MP #### [facility] [address] [address] [address] Yarely Roe CO2 [Moles/Vol] 33.0 mmol/L Critically high 22.0-30.0 [facility] Comment on above: Performed By: #### C MP #### [facility] [address] [address] [address] Yarely Roe Creatinine [Mass/Vol] 1.40 mg/dL Critically high 0.52-1.04 [facility] Comment on above: Performed By: #### C MP #### [facility] [address] [address] [address] Yarely Roe EGFR-AF CITIZEN OF [place] 44 mL/min/1.73m2 Critically low >=60 [facility] Comment on above: Performed By: #### C MP #### [facility] [address] [address] [address] Yarely Roe EGFR-NON AF CITIZEN OF [place] 37 mL/min/1.73m2 Critically low >=60 [facility] Comment on above: Performed By: #### C MP #### [facility] [address] [address] [address] Yarely Roe Globulin (S) [Mass/Vol] 4.3 g/dL Normal [facility] Comment on above: Performed By: #### C MP #### [facility] [address] [address] [address] Yarely Roe Glucose [Mass/Vol] 224 mg/dL Critically high 74-106 [facility] Comment on above: Performed By: #### C MP #### [facility] [address] [address] [address] Yarely Roe Potassium [Moles/Vol] 3.3 mmol/L Critically low 3.4-5.0 [facility] Comment on above: Performed By: #### C MP #### [facility] [address] [address] [address] Yarely Roe Protein [Mass/Vol] 7.7 g/dL Normal 6.1-8.2 [facility] Comment on above: Performed By: #### C MP #### [facility] [address] [address] [address] Yarely Roe Sodium [Moles/Vol] 138 mmol/L Normal 137-145 [facility] Comment on above: Performed By: #### C MP #### [facility] [address] [address] [address] Yarely Roe Urea nitrogen [Mass/Vol] 27.0 mg/dL Critically high 7.0-18.0 [facility] Comment on above: Performed By: #### C MP #### [facility] [address] [address] [address] Yarely Roe Urea nitrogen/Creatinin e [Mass ratio] 19.3 mg/mg Normal [facility] Comment on above: Performed By: #### C MP #### [facility] [address] [address] [address] Yarely Roe VASC LAB Carotid Artery Dupl ex Ultrasoun 05-08-2020 VASC LAB Carotid Artery Duplex Ultrasoun [address], [address] [place] [address] Vascular Lab Report Carotid Artery Duplex Ultrasound Patient Name: LEXI SHRAVANSAMMI CASTILLO Reading Physician: [id number] Charlotte Cordon MD, LOCATED WITHIN [facility] Study Date: 05/08/2020 Referring Physician: [id number] Shahrzad Ruano MD MRN/PID: [id number] PCP: Radha Lee Accession/Order#: [id number] CC Report to: Date of : 1945 Technologist: Surekha Hartley RDCS, RVT Gender: F Technologist 2: Admission Status: Outpatient Location Performed: [facility] Diagnosis/ICD: R09.89-Other specified symptoms and signs involving the circulatory and respiratory systems Indication: Diabetes, Hyperlipidemia, Former Smoker, Vertigo, CAD, CABG, Ischemic Cardiomyopathy, PTCA, [place], Obesity Procedure/CPT: 28038 Cerebrovascular Carotid Duplex scan complete-[id number] CONCLUSIONS: Right Carotid: Findings are consistent with [...] cm/s Right Left ICA/CCA Ratio 2.2 0.9 [id number] Charlotte Cordon MD, FACC Final Normal [facility] HEMOGLOBIN A1Con 06-17-2019 HbA1c (Bld) [Mass fraction] 7.5 % Normal [facility] Comment on above: Result Comment: Diag nosis of Diabetes-Adults Non-Diabetic: < or = 5.6% Increased risk for developing diabetes: 5.7-6.4% Diagnostic of diabetes: > or = 6.5% . Monitoring of Diabetes Age (y) Therapeutic Goal (%) Adults: >18 <7.0 Pediatrics: 13-18 <7.5 7-12 <8.0 0- 6 7.5-8.5 [place] [employer]. Diabetes Care 33(S1), Jul 2009. Performed By: #### H BA1E #### [facility] [address] [place] [address] HbA1c (Bld) [Mass fraction] 169 MG/DL Normal [facility] Comment on above: Performed By: #### H BA1E #### [facility] [address] [place] [address] Anthony 06-16-2019 AST [Catalytic activity/Vol] 18 U/L Normal 9 - 39 [facility] Comment on above: Order Comment: Desean nt states she had black coffee this a.m. Performed By: #### A ST #### [address] [address] COMPREHENSIVE PANELon 2018 Albumin [Mass/Vol] 4.1 g/dL Normal 3.4 - 5.0 [facility] Comment on above: Performed By: #### C MP #### [address] [address] ALP [Catalytic activity/Vol] 62 U/L Normal 33 - 136 [facility] Comment on above: Performed By: #### C MP #### [address] [address] ALT [Catalytic activity/Vol] 12 U/L Normal 7 - 45 [facility] Comment on above: Result Comment: Yareli ents treated with Sulfasalazine may generate falsely decreased results for ALT. Performed By: #### C MP #### [address] [address] Anion gap [Moles/Vol] 13 mmol/L Normal 10 - 20 [facility] Comment on above: Performed By: #### C MP #### [address] [address] AST [Catalytic activity/Vol] 16 U/L Normal 9 - 39 [facility] Comment on above: Performed By: #### C MP #### [address] [address] Bilirubin [Mass/Vol] 0.5 mg/dL Normal 0.0 - 1.2 [facility] Comment on above: Performed By: #### C MP #### [address] [address] Calcium [Mass/Vol] 9.8 mg/dL Normal 8.6 - 10.3 [facility] Comment on above: Performed By: #### C MP #### [address] [address] Chloride [Moles/Vol] 103 mmol/L Normal 98 - 107 [facility] Comment on above: Performed By: #### C MP #### [address] [address] Creatinine [Mass/Vol] 1.32 mg/dL High 0.50 - 1.05 [facility] Comment on above: Performed By: #### C MP #### [address] [address] GFR- AM. 47 mL/min/1.73m2 Abnormal >60 [facility] Comment on above: Result Comment: CALC ULATIONS OF ESTIMATED GFR ARE PERFORMED USING THE MDRD STUDY EQUATION FOR THE IDMS-TRACEABLE CREATININE METHODS. CLIN CHEM 2007;53:766-72 Performed By: #### C MP #### [address] [address] GFR-NON AM. 39 mL/min/1.73m2 Abnormal >60 [facility] Comment on above: Performed By: #### C MP #### [address] [address] Glucose [Mass/Vol] 115 mg/dL High 74 - 99 [facility] Comment on above: Performed By: #### C MP #### [address] [address] HCO3 (Bld) [Moles/Vol] 25 mmol/L Normal 21 - 32 [facility] Comment on above: Performed By: #### C MP #### [address] [address] Potassium [Moles/Vol] 5.4 mmol/L High 3.5 - 5.3 [facility] Comment on above: Performed By: #### C MP #### [address] [address] Protein [Mass/Vol] 7.5 g/dL Normal 6.4 - 8.2 [facility] Comment on above: Performed By: #### C MP #### [address] [address] Sodium [Moles/Vol] 136 mmol/L Normal 136 - 145 [facility] Comment on above: Performed By: #### C MP #### [address] [address] Urea nitrogen [Mass/Vol] 40 mg/dL High 6 - 23 [facility] Comment on above: Performed By: #### C MP #### [address] [address] LIPID PANEL (CORONARY RISK 2 )on 06-16-2019 Cholesterol [Mass/Vol] 182 mg/dL Normal 0 - 199 [facility] Comment on above: Order Comment: Desean nt [...] dosing. Performed By: #### L IPID #### [address] [address] Cholesterol in HDL [Mass/Vol] 39.0 mg/dL Abnormal [facility] Comment on above: Order Comment: Desean hernandez states she had black coffee this a.m. Result Comment: . AGE VERY LOW LOW NORMAL HIGH 0-19 Y < 35 < 40 40-45 ---- 20-24 Y ---- < 40 >45 ---- >24 Y ---- < 40 40-60 >60 . Performed By: #### L IPID #### [address] [address] Cholesterol in LDL [Mass/Vol] 92 mg/dL Normal 0 - 99 [facility] Comment on above: Order Comment: Desean hernandez states she had black coffee this a.m. Result Comment: . NEAR BORD AGE DESIRABLE OPTIMAL HIGH HIGH VERY HIGH 0-19 Y 0 - 109 --- 110-129 >/= 130 ---- 20-24 Y 0 - 119 --- 120-159 >/= 160 ---- >24 Y 0 - 99 100-129 130-159 160-189 >/=190 . Performed By: #### L IPID #### [address] [address] Cholesterol in VLDL [Mass/Vol] 51 mg/dL High 0 - 40 [facility] Comment on above: Order Comment: Desean hernandez states she had black coffee this a.m. Performed By: #### L IPID #### [address] [address] Cholesterol.total/ Cholesterol in HDL [Mass ratio] 4.7 {ratio} Normal [facility] Comment on above: Order Comment: Desean hernandez states she had black coffee this a.m. Result Comment: REF VALUES DESIRABLE < 3.4 HIGH RISK > 5.0 Performed By: #### L IPID #### [address] [address] NON-HDL CHOLESTEROL 143 mg/dL Normal [facility] Comment on above: Order Comment: Desean hernandez states she had black coffee this a.m. Result Comment: AGE DESIRABLE BORDERLINE HIGH HIGH VERY HIGH 0-19 Y 0 - 119 120 - 144 >/= 145 >/= 160 20-24 Y 0 - 149 150 - 189 >/= 190 ---- >24 Y 30 MG/DL ABOVE LDL CHOLESTEROL GOAL . Performed By: #### L IPID #### [address] [address] Triglyceride [Mass/Vol] 255 mg/dL High 0 - 149 [facility] Comment on above: Order Comment: Desean hernandez [...] dosing. Performed By: #### L IPID #### [address] [address] Vital Signs Date Time Vital Sign Value Performing Clinician Facility 08-13-2023 13:00-0500 Body height Da Lozano II Other [facility] Other 11-12-2022 15:30-0400 Body height Ross Colmenares Other [facility] Other 11-12-2022 15:30-0400 Body mass index (BMI) [Ratio] 33.32 kg/m2 Ross Colmenares Other [facility] Other 11-12-2022 15:30-0400 Body weight 74.84 kg Ross Colmenares Other [facility] Other 07-25-2022 15:55-0500 Body height 149.86 cm Radha Lee Work Phone: QS-Xruuqbbyfx-Ofcmlwg y 250 DO Work Phone: 07-25-2022 15:55-0500 Body mass index (BMI) [Ratio] 34.94 kg/m2 Radha Ruizight Work Phone: LX-Keujostvdx-Jgnmksk y 250 DO Work Phone: 07-25-2022 15:55-0500 Body surface area Derived from formula 1.73 m2 Radha Ruizight Work Phone: DP-Ibsddqeuhx-Tgkcjei y 250 DO Work Phone: 07-25-2022 15:55-0500 Body weight 78.47 kg Radha Ruizight Work Phone: IK-Klhbabzztr-Lwvcnbi y 250 DO Work Phone: 07-25-2022 15:55-0500 Diastolic blood pressure 80 mm[Hg] Radha Ruizight Work Phone: IL-Rpmtgqjegi-Ocihbza y 250 DO Work Phone: 07-25-2022 15:55-0500 Heart rate 66 /min Radha Conley Lee Work Phone: CL-Iyqwlvvqyy-Fnhhdje y 250 DO Work Phone: 07-25-2022 15:55-0500 Systolic blood pressure 120 mm[Hg] Radha Ruizight Work Phone: HV-Ejbxkpimwi-Cojthnc y 250 DO Work Phone: 11-02-2021 13:16-0400 Body height 149.86 cm Radha Conley Lee Work Phone: [facility] 250 DO Work Phone: 11-02-2021 13:16-0400 Body mass index (BMI) [Ratio] 34.54 kg/m2 Radha Conley Lee Work Phone: [facility] 250 DO Work Phone: 11-02-2021 13:16-0400 Body surface area Derived from formula 1.73 m2 Radha Lee Work Phone: [facility] 250 DO Work Phone: 11-02-2021 13:16-0400 Body weight 77.57 kg Radha Lee Work Phone: [facility] 250 DO Work Phone: 11-02-2021 13:16-0400 Diastolic blood pressure 80 mm[Hg] Radha Lee Work Phone: [facility] 250 DO Work Phone: 11-02-2021 13:16-0400 Heart rate 66 /min Rahda Lee Work Phone: [facility] 250 DO Work Phone: 11-02-2021 13:16-0400 Systolic blood pressure 130 mm[Hg] Radha Ben Lee Work Phone: [facility] 250 DO Work Phone: Encounters Encounter Date Encounter Type Care Provider Facility Start: 09-08-2023 End: 09-09-2023 ambulatory [facility] Start: 08-20-2023 End: 08-21-2023 ambulatory Maxine L Shraddha Facility:[facility] Start: 08-13-2023 End: 08-13-2023 ambulatory Da Lozano II Other [facility] [employer] Other Start: 08-13-2023 Office outpatient vi sit 15 minutes Da Lozano II [facility] Start: 05-21-2023 End: 05-22-2023 ambulatory Maxine L Shraddha Facility:[facility] Start: 04-23-2023 (Procedure) Raine Colmenares [facility] Start: 04-23-2023 End: 04-23-2023 ambulatory Ross Colmenares Other [facility] Other Start: 04-07-2023 End: 04-07-2023 ambulatory Ross Colmenares Other [facility] Other Start: 04-07-2023 Telephone encounter Ross Guzmán [facility] Start: 03-27-2023 End: 03-27-2023 ambulatory Da Lozano II Other [facility] Other Start: 03-27-2023 Office outpatient vi sit 15 minutes Da [place] II [facility] Start: 03-25-2023 ambulatory Maxine L Shraddha Facility: [facility] Start: 03-05-2023 End: 03-06-2023 ambulatory Maxine L Shraddha Facility:[facility] Vivian bobbi Start: 02-10-2023 End: 02-11-2023 ambulatory Maxine L Shraddha Facility:[facility] Start: 02-10-2023 End: 02-10-2023 Lab Drop off Maxine L Shraddha [facility] Start: 02-05-2023 ambulatory Maxine L Shraddha Facility: [facility] Kiera Start: 12-25-2022 (Procedure) Short Ross Colmenares [facility] Start: 12-25-2022 End: 12-25-2022 ambulatory Ross Colmenares Other [facility] Other Start: 12-04-2022 End: 12-04-2022 ambulatory Da Lozano II Facility:[facility] Start: 11-12-2022 End: 11-12-2022 ambulatory Ross Colmenares Other [facility] Other Start: 11-12-2022 Office outpatient ne w 45 minutes Ross Colmenares [facility] Start: 11-11-2022 End: 11-11-2022 ambulatory Ross Colmenares Facility:[facility] Start: 11-11-2022 End: 11-11-2022 ambulatory MD Radha Lee Work Phone: [facility] Work Phone: Start: 11-11-2022 End: 11-11-2022 Patient encounter procedure MD Radha Lee Work Phone: [facility] Start: 10-09-2022 Rx Renewal Radha Lee Work Phone: [facility] 250 DO Work Phone: Start: 07-25-2022 Office outpatient vi sit 25 minutes Radha Lee Work Phone: [facility]Tezfzywhfp-Whxqxrre 250 DO Work Phone: Start: 07-25-2022 ambulatory Shahrzad Ruano II Facility: Start: 07-10-2022 Rx Renewal Radha Lee Work Phone: [facility] 250 DO Work Phone: Start: 01-30-2022 End: 01-31-[address] RADHA LEE Facility:[facility] Start: 12-19-2021 Encounter for genera l adult medical examination without abnormal findings DR SHAHRZAD RUANO [facility] Start: 12-13-2021 End: 12-14-[address] RADHA LEE Facility:[facility] Start: 12-13-2021 End: 12-14-2021 Encounter for general adult medical examination without abnormal findings DR RADHA LEE Facility:[facility] Start: 11-02-2021 Office outpatient vi sit 25 minutes Radha Lee Work Phone: [facility] 250 DO Work Phone: Start: 11-02-[address] RADHA LEE Facilit y:[facility] Start: 10-18-2021 End: 01-19-[address] RADHA LEE Facility:[facility] Start: 10-15-2021 End: 10-16-[address] RADHA LEE Facility:[facility] Start: 10-11-2021 Rx Renewal Radha Lee Work Phone: [facility] 250 DO Work Phone: Start: 09-10-2021 Rx Renewal Radha Lee Work Phone: [facility] 250 DO Work Phone: Start: 08-03-2021 AUDIT Radha Lee Work Phone: [facility] 250 DO Work Phone: Start: 11-20-2017 Ambulatory BLAKE MONTA[place]US Facility :[id number] Start: 09-04-2017 Ambulatory BLAKE KIRNUS Facility :[id number] Start: 04-07-2017 End: 04-08-2017 Ambulatory DEFAULT PHYSICIAN Facility:[facility] Patient encounter status Radha Lee Work Phone: [facility] 250 DO Work Phone: Procedures Date Procedure Procedure Detail Performing Clinician Aortoiliofemoral vas cular bypass Radha Conley Rosa Work Phone: CABG Radha Ben Lee Work Phone: Cataract surgery Radha hartley Work Phone: Cataract surgery Maxine [place] section Radha hartley Work Phone: Comment on above: x3; section Maxine Shraddha Comment on above: Outside Source Comme nt: Comment on above: x3; History of coronary artery bypass grafting S/P CABG x 3 Radha Ben Lee Work Phone: History of coronary artery bypass grafting Maxine Shraddha Plan of Treatment Date Care Activity Detail Author Start: 11-19-2023 ambulatory Ambulatory Facility:[facility] Start: 09-17-2023 ambulatory Ambulatory Facility:[facility] Start: 07-23-2023 FUV, Provider: Shahrzad Ruano, Status: Pen, Time: 3:40 PM FUV, Provider: Shahrzad Ruano, Status: Pen, Time: 3:40 PM [facility]-Etxvrxuoeg-Wquhdtrb 250 DO Work Phone: Start: 11-11-2022 X-ray of lumbar spin e, four views XR lumbar spine AP/LAT/FLX/EXT [facility] Start: 11-11-2022 Plain X-ray of left hip XR hip LT min 2V(w/wo pelvis)* [facility] Start: 11-11-2022 XR Hip - left 2 Views F [facility] Start: 07-25-2022 FUV, Provider: Shahrzad Ruano, Status: Pen, Time: 3:30 PM FUV, Provider: Shahrzad Ruano, Status: Pen, Time: 3:30 PM -[facility] 250 DO Work Phone: Start: 04-19-2022 FUV, Provider: Shahrzad Ruano, Status: Pen, Time: 3:20 PM FUV, Provider: Shahrzad Ruano, Status: Pen, Time: 3:20 PM [facility] 250 DO Work Phone: Start: 11-02-2021 FUV, Provider: Shahrzad Ruano, Status: Pen, Time: 1:15 PM FUV, Provider: Shahrzad Ruano, Status: Pen, Time: 1:15 PM -[facility] DO Work Phone: Immunizations Immunization Date Immunization Notes Care Provider Yon slaughter 07-03-2022 Fluad Quadrivalent 0 .5 ML Intramuscular Prefilled Syringe Radha Lee Work Phone: [facility] 250 DO Work Phone: 07-03-2022 influenza virus vacc ine, unspecified formulation Maxine Ll[facility] 06-17-2022 Pfizer COVID-19 Vac Bivalent 30 MCG/0.3ML Intramuscular Suspension [facility] Comment on above: Result Comment: 2022: [id number] 04-13-2021 Pfizer-BioNTech COVI D-19 Vacc 30 MCG/0.3ML Intramuscular Suspension Radha Lee Work Phone: [facility] Comment on above: Result Comment: 2022: [id number] 08-30-2020 Pfizer-BioNTech COVI D-19 Vacc 30 MCG/0.3ML Intramuscular Suspension Radha Lee Work Phone: [facility] Comment on above: Result Comment: 2022: [id number] 08-09-2020 Pfizer-BioNTech COVI D-19 Vacc 30 MCG/0.3ML Intramuscular Suspension Radha Lee Work Phone: [facility] Comment on above: Result Comment: 2022: [id number] 07-01-2019 influenza virus vacc ine, unspecified formulation Maxine [employer] [facility] 07-01-2019 influenza, injectabl e, quadrivalent, contains preservative Radha Lee Work Phone: [facility] [employer] DO Work Phone: 07-14-2018 influenza virus vacc ine, unspecified formulation Radha Lee Work Phone: [facility] 04-16-2018 influenza virus vacc ine, unspecified formulation Maxine Shraddha [facility] 04-16-2018 pneumococcal polysaccharide vaccine, 23 valent Radha Lee Work Phone: [facility] 04-13-2018 influenza virus vacc ine, unspecified formulation [facility] Work Phone: 04-13-2018 pneumococcal conjuga te vaccine, 13 valent Radha Lee [facility]: [facility] Work Phone: 05-16-2017 influenza virus vacc ine, unspecified formulation Maxine Shraddha [facility] 05-12-2017 influenza, high dose seasonal, preservative-free Radha Lee Work Phone: [facility] 250 DO Work Phone: 10-30-2016 pneumococcal conjuga te vaccine, 13 valent Radha Lee Work Phone: [facility] 10-12-2016 pneumococcal polysaccharide vaccine, 23 valent Radha Lee Work Phone: [facility] 250 DO Work Phone: 07-14-2011 influenza virus vacc ine, unspecified formulation Radha Lee Work Phone: [place] [address] DO Work Phone: Payers Date Payer Category Payer Medicare [id number] 2022 Self-pay [id number] 1959 Medicare [id number] 1959 Self-pay [id number] 1959 Unknown [id number] 1945 Unknown [id number] 2.16.84 0.1.647157.3.579.2.593 1945 Unknown [id number] 2.16.84 0.1.906681.3.579.2.593 1945 Unknown [id number] 2.16.84 0.1.372272.3.579.2.593 1945 Unknown [id number] 2.16.84 0.1.029451.3.579.2.593 1945 Unknown [id number] 2.16.84 0.1.830719.3.579.2.593 1945 Unknown [id number] 2.16. 840.1.077061.3.579.2.356 1945 Unknown [id number] 2.16. 840.1.449005.3.579.2.356 1945 Unknown [id number] 2.16.8 40.1.614978.3.579.2.727 1945 Unknown [id number] 2.16.8 40.1.188896.3.579.2.727 1945 Unknown [id number] 2.16.8 40.1.856140.3.579.2.727 1945 Unknown [id number] 2.16.8 40.1.242255.3.579.2.727 1945 Unknown [id number] 2.16.8 40.1.906188.3.579.2.727 1945 Unknown [id number] 2.16.8 40.1.328542.3.579.2.727 1945 Unknown [id number] 2.16.8 40.1.097446.3.579.2.727 1945 Unknown [id number] 2.16.8 40.1.604185.3.579.2.727 1945 Unknown [id number] 2.16.8 40.1.229414.3.579.2.727 1945 Unknown [id number] 2.16.8 40.1.281908.3.579.2.727 1945 Unknown [id number] 2.16.8 40.1.731855.3.579.2.727 1945 Unknown [id number] 2.16.8 40.1.241804.3.579.2.727 1945 Unknown [id number] 2.16.8 40.1.651602.3.579.2.727 Medicare [id number] Medicare [id number] 2.1 6.840.1.074322.19 Unknown Unknown [id number] 2.16.8 40.1.153204.3.579.2.531 Unknown [id number] 2.16.8 40.1.622856.3.579.2.531 Social History Date Type Detail Facility Former smoker Former smoker -[facility] DO Work Phone: Comment on above: Quit 17 years ago; Quit 25+ years ago; coffee occasionally soda, tea; Start: 08-06-2018 End: 02-10-2023 Tobacco smoking status NHIS Ex-smoker (finding) [facility] Start: 1945 Sex Assigned At Female F [facility] Sex Assigned At [facility] Tobacco smoking status Never [facility] Medical Equipment Procedure Code Equipment Code Equipment Origin al Text Equipment Identifier Dates AAA repair with graft GRAFT HEMASHIELD [id number] FDA Start: 07-20-2018 AAA repair with graft IR STENT SMART 9 X 40 120 CM FDA Start: 07-20-2018 CL STENT XIENCE ALP 2.25 X 15 FDA Start: 06-24-2017 CL STENT XIENCE ALP 2.5 X 38 FDA Start: 06-24-2017 CL STENT XIENCE ALP 3.0 X 18 FDA Start: 06-24-2017 STENT PALMAZ CHLOE E 7 X 24 135CM FDA Start: 09-11-2017 Misc DME Prescription, See Instructions, 100 strip(s), 3, True Metrix Test Strips Check [facility], [facility], Supply, 140.6, cm, 02/10/23 11:29:00 EDT, Height/Length Dosing, 79.2, kg, 02/10/23 11:29:00 EDT, Weight Dosing Start: 02-10-2023 Clinical Notes 11-11-2016 to 09-09-2023 Note Date & Type Note Facility 09-09-2023 Note [id number] 07#1.00[facility] 09-09-2023 Note [id number] [facility] 09-01-2023 Note [id number] #1.00[facility] 08-13-2023 Evaluation note Encounter Date Diagnosis Assessment Notes Jul, Primary osteoarthritis of left hip (ICD-10 - M16.12) Jul, Other We have provided her a few names of [facility] physicians that are currently taking new patients [...] can see her 3 months after that. [employer] Other 09-14-2023 Evaluation note* Encounter Date Diagnosis [...] her to stay in touch with Dr. oClmenares on a regular basis for further hip [...] is considering changing from her current PCP [employer] Other 05-02-2023 Evaluation note* Encounter Date Diagnosis [...] Above note written by Ramandeep Aggarwal LPN, Lbd Teacher. Edited and approved by Dr. Ross Colmenares [...] negative findings were considered in medical decision-making. [employer] Other 05-01-2017 History general Narrative - Reported* Type Description Date Medical History AK Medical History Hyperlipiedmia Medical History PVD Medical History DM Medical History HTN Surgical History Open Heart 11/2016 Surgical History Cardiac Stent 09/2017 Surgical History Cardiac Stent 05/2017 Surgical History C- section 1960 Surgical History Rt iliac angioplasty & stent; Aortobiiliac bifurcation graft 07/20/18 Hospitalization History See above [employer] Other Evaluation + Plan note Future Appointments Appointment Date:03/25/2023 01:00:00 PM Scheduled Provider: Location:[facility] Appointment Type:FM Medicare Wellness Subsequent [facility] note[facility] assessment information available [facility] Work Phone: Evaluation noteNo [email or web address] Other History of Present illness Narrative* Patient [...] are reviewed and felt to be satisfactory. -[facility] DO Work Phone: History of Present [...] are reviewed and felt to be satisfactory. [facility] 250 DO Work Phone: History of Present [...] we suggest no change and follow-up as [id number] 250 DO Work Phone: Hospital course Narrative No data available for this section [facility] HospitalHoital Discharge instructions No data available for this section [facility]Progress [facility] No data available for this section [facility] HospitalReason for visit NarrativeNEW SELF REFERRAL LT SCIATIC PAINNorth Liquid X Other Summary Purpose Family History No Family [...] hip (M16.12) Referral Organization [facility] Referring Provider First Name Ross Referring Provider Last Name Darrian Referring Provider Specialty Pain Medici ne Referred Organization [facility] Referred Provider Da Lozano II Referred Address [address] [place] [facility],[place],[address] Referred Provider Specialty Orthopedic S urgery Referral Priority Routine Referral Appointment Date 2022-12-04 General Notes Amanda Camejo 08:40:19 AM >received today, patient is scheduled already with Dr Lozano 12/04/22. Sending the p2p at this time Additional Source Comments INFORMATION SOURCE (unrecogn ized section and content) DATE CREATED AUTHOR 12/31/2017 [facility] DATE CREATED AUTHOR AUTHOR'S ORGANIZ ATION 01/07/[address] [facility] DATE CREATED AUTHOR AUTHOR'S ORGANIZ ATION 05/17/2020 [place] [facility] DATE CREATED AUTHOR AUTHOR'S ORGANIZ ATION 02/14/2022 [facility] DATE CREATED AUTHOR AUTHOR'S ORGANIZ ATION 07/26/2022 [facility] DATE CREATED AUTHOR AUTHOR'S ORGANIZ ATION 07/26/2022 [employer] DATE CREATED AUTHOR AUTHOR'S ORGANIZ ATION 03/02/2023 [facility] DATE CREATED AUTHOR AUTHOR'S ORGANIZ ATION 09/11/2023 [facility] Care Teams (unrecognized sec tion and content) Team Status: Active Member Role Status Dates Radha Lee MD Primary Care Provider Active Team Status: Inactive Member Role Status Dates Radha Lee MD Primary Care Provider Active Ross [...] LEFT HIP JOINT INJECTIONNo Information*OK TO CONT PLAVIXTRENT PTLEFT INTRA-ARTICULAR HIP JOINT INJECTION /VWRecheck Left [...] BE BASED ON THE PRIMARY CLINICAL RECORDS. [employer] [facility]. provides no warranty or guarantee of the accuracy or completeness of information in this document.
[2023-09-15 14:06] LABS: Bilirubin Urine NEGATIVE (NEGATIVE); Blood Urine NEGATIVE (NEGATIVE); Clarity Urine CLEAR (CLEAR); Color Urine LT. YELLOW (YELLOW); Glucose Urine UA 100 mg/dL (NEGATIVE); Ketones Urine NEGATIVE (NEGATIVE); Leukocyte Esterase Urine NEGATIVE (NEGATIVE); Nitrite Urine NEGATIVE (NEGATIVE); Protein Urine TRACE mg/dL (NEG/TRACE); Urobilinogen Urine 0.2 EU/dL (0.2-1.0)
== END 2023-09-15 13:05 | disposition home or self-care (01) ==
LOC: LAB 13:04
PROVIDERS: PCP Nurse Practitioner; Visit Provider Family Medicine
DX: N39.0 Urinary tract infection, site not specified (principal)
CPT/HCPCS: 81003; 87086

== ENCOUNTER 2023-11-22 10:45 | Outpatient (OUT) | payer MEDICARE, SELFPAY ==
--- OUTSIDE RECORDS SUMMARY | 2023-11-22 09:39 | XMS_ITS | CCD ---
Author Organization [facility] Care Team Providers Care Wad Compressor Operator Adjuster Name Role Phone BLAKE KUO Unavailable Unavailable SHITAL, LI Unavailable Unavailable BLAKE KUO Unavailable Unavailable SHITAL, LI Unavailable Unavailable PHYSICIAN, DEFAULT Unavailable Unavailable PHYSICIAN, DEFAULT Unavailable Unavailable iL Lee Unavailable Unavailable Unavailable SHITAL, DR LI Conley Primary Care Unavailable LEE, DR LI Conley Admitting Unavailable LEE, DR LI Conley Attending Unavailable LEE, DR LI Conley Consulting Unavailable [place], DR Ren Consulting Unavailable LEE, DR LI [...] ailable Li Lee Primary Care Unavailable McGuinn IITom Attending Unav ailable McGuinn II, Tom Green Referring Unav ailable Lee, Li Miller Primary Care Unavailable McGuinn MIMA, Tom Green Attending UnaMD Li Ibanez Primary Care Provider MD Ross Colmenares Attending Provider Ross Colmenares Unavailable Maxine Llanes Primary Care Physician Da Lozano II Attending UnavailDa rAanda II Admitting UnavailLi Parker Primary Care Unavailable Ross Colmenares Admitting Unavailable Li Lee Primary Care Unavailable Ross Colmenares Attending Unavailable Da Lozano II Unavailable Tom Ruano MD Unavailable Stefan Best MD Primary Care Provider [phone] TOM RUANO Attending Unavailable STEFAN BEST Primary Care Unavailable TOM RUANO Referring Unavailable STEFAN BEST Primary Care Unavailable TOM RUANO Referring Unavailable STEFAN BEST Primary Care Unavailable Shraddha, Maxine L Attending Unavailable Shraddha, [...] Allergy Type Date of Onset Reaction(s) Facility (15 sources) Angiotensin Converting Enzyme (Williams) Inhibitors; Translations: [WILLIAMS Inhibitors] Allergy to drug (finding) 3 Hyperkalemia, Other Hospitals 3 Repository (20 sources) atorvastatin; Translations: [atorvastatin] Drug Allergy 3 Myalgia [facility] (13 sources) Hmg-Coa Reductase Inhibitors (Statins); Translations: [Statins] Allergy to drug (finding) Myalgia [facility] [employer] 250 DO Work Phone: (5 sources) rosuvastatin; Translations: [rosuvastatin] Drug Allergy Myalgia [facility] [employer] 250 DO Work Phone: (20 sources) Spironolactone; Translations: [spironolactone] Drug Allergy 3 Other [facility] [employer] 250 DO Work Phone: (1 source) Iodine (And Iodine Containting Drugs) Drug allergy (disorder) [facility] Repository (1 source) Pravastatin Drug Allergy [facility] Repository (2 sources) Simvastatin Drug Allergy [facility] Repository (1 source) Sulfonamides (Antibiotic) Drug allergy (disorder) [facility] Repository (6 sources) Adhesive Tape Drug allergy rash [employer] Other (2 sources) Pravastatin; Translations: [pravastatin] Drug Allergy [facility] (11 sources) Angiotensin-conv erting enzyme inhibitor agent Drug Allergy 3 Other [facility] (13 sources) HMG-CoA reductase inhibitor; Translations: [MEOBBTE-KRV-BNE REDUCTASE INHIBITORS] Drug Allergy 3 Myalgia [facility] Work Phone: Medications Current Medications Medication Drug Class(es) Dates Sig (Normalized) Sig (Original) acetaminophen 325 mg oral tablet (9 sources) Start: 07-20-2018 take 2 tablets by [...] DO Active allopurinol 300 mg oral tablet (20 sources) Xanthine Oxidase Inhibitor Start: 05-14-2017 take 1 tablet by mouth once daily Allopurinol (Zyloprim) 300 mg Tablet Active 300 MG PO Daily May 14, 2017 12:00am aspirin 81 mg delayed release oral tablet (20 sources) Platelet Aggregation Inhibitor, Nonsteroidal Anti-inflammatory Drug Start: 08-08-2023 take 1 tablet by mouth once daily aspirin 81 mg EC tablet Indications: CAD, multiple vessel TAKE ONE TABLET BY MOUTH DAILY 90 tablet 3 08/08/2023 Active Start: 05-14-2017 aspirin 81 mg Oral EC Tab Oral, Refills(s) 0 Start Date: 02/05/23 Status: [facility] Aspirin 81 MG 1 tablet Orally Once a day Active Aspirin 81 MG Or al Tablet Delayed Release Quantity: 0 Refills: 0 Ordered: 19-Dec-2016 DO Active carvedilol 25 mg oral tablet (20 sources) alpha-Adrenergic Miquel, beta-Adrenergic Miquel Start: 07-22-2018 End: 09-17-2023 take 25 mg by mouth twice daily Carvedilol Active 25 MG PO Twice daily July 22, 2018 1:00am Start: 06-23-2017 End: 07-22-2018 take 2 tablets by mouth twice daily Carvedilol (Coreg) 12.5 mg Tablet Discontinued 25 MG PO Twice daily June 23, 2017 1:00am July 22, 2018 1:13pm cholecalciferol 0.125 mg oral tablet (20 sources) Vitamin D Start: 2023 take 1 tablet by mouth once daily at mealtime cholecalciferol (Vitamin D-3) 5,000 Units tablet Take 1 tablet (5,000 Units) by mouth once daily. with food 0 2023 Active Start: 09-11-2017 take 1 capsule by mo [facility] once daily cholecalciferol 1000 intl units oral capsule 25 mcg = 1 cap(s), Oral, Daily, Oral, # 90 cap(s), Refills(s) 1, Pharmacy: [id number], 140.6, cm, 02/10/23 11:29:00 EDT, Height/Length Dosing, 79.2, kg, 02/10/23 11:29:00 EDT, Weight Dosing Start Date: 02/10/23 Status: Ordered Start: 07-16-2017 End: 09-11-2017 Cholecalciferol (Vitamin D3) [...] (20 sources) P2Y12 Platelet Inhibitor Start: 05-14-2017 End: 09-17-2023 take 1 tablet by mouth once daily Clopidogrel (Plavix) 75 mg Tablet Active 75 MG PO Daily May 14, 2017 12:00am dimenhyDRINATE (6 sources) Dramamine Active docusate sodium 100 mg oral capsule (18 sources) Start: 06-23-2017 take 1 capsule by mouth twice daily Docusate Sodium (Colace) 100 mg Capsule Active 100 MG PO Twice daily June 23, 2017 1:00am take 1 capsule by mo [facility] every twenty-four hours Colace 100 MG 1 capsule as needed Orally Once a day Active take 1 tablet by mouth once sayda y Docusate Sodium 100 MG Oral Tablet TAKE 1 TABLET DAILY DIRECTED. Quantity: 0 Refills: 0 Ordered: 19-Dec-2016 DO Active furosemide 40 mg oral tablet (20 sources) Loop Diuretic Start: 10-11-2021 End: 09-16-2024 take 1 tablet by mouth once daily furosemide (Lasix) 40 mg tablet Indications: Primary hypertension Take 1 tablet (40 mg) by mouth once daily. 90 tablet 3 09/17/2023 09/16/2024 Active Start: 05-14-2017 take 1 tablet by dayo th once daily Furosemide (Lasix) 20 mg Tablet Active 20 MG PO Daily May 14, 2017 12:00am take 1 tablet by dayo th twice daily Furosemide 40 MG Oral Tablet Take 1 tablet twice daily Quantity: 0 Refills: 0 Ordered: 19-Dec-2016 DO Active gabapentin 300 mg oral capsule (20 sources) Anti-epileptic Agent Start: 07-03-2023 take 1 capsule by mouth twice daily gabapentin (Neurontin) 300 mg capsule Take 1 capsule (300 mg) by mouth 2 times a day. 0 07/03/2023 Active Start: 02-05-2023 gabapentin 300 mg Cap Oral, Refills(s) 0 Start Date: 02/05/23 Status: Ordered Start: 06-15-2021 take 1 capsule by mo [facility] twice daily Gabapentin 300 MG Oral Capsule [...] 25, 2017 11:51am take 1 capsule by [facility] every twenty-four hours Gabapentin 300 MG 1 capsule before bedtime Orally Once a day Active Gabapentin 100 M G TABS TAKE 1 TABLET 3 TIMES DAILY. Quantity: 0 Refills: 0 Ordered: 19-Dec-2016 DO Active insulin aspart 100 units/mL injectable solution (1 source) Start: 02-05-2023 insulin aspart 100 units/mL injectable solution Subcutaneous, Refills(s) 0 Start Date: 02/05/23 Status: Ordered 3 ml insulin aspart, human 100 unt/ml pen injector (20 sources) Insulin Analog Start: 02-11-2023 NovoLOG Flexpe n U-100 Insulin 100 unit/mL (3 mL) pen INJECT 20 UNITS VIA SUBCUTANEOUS ROUTE NEEDED PER SLIDING SCALE 0 02/11/2023 Active Start: 05-14-2017 End: 07-16-2017 Insulin Aspart U-100 (Novolo g Flexpen U-100 Insulin) 100 unit/mL Insulin Pen Discontinued 0 UNIT SUBCUT As Directed 0 June 25, 2017 11:05am July 16, 2017 9:40am NovoLOG Active 3 ml insulin glargine 100 unt/ml pen injector (20 sources) Insulin Analog Start: 07-03-2023 Basaglar KwikP en U-100 Insulin 100 unit/mL (3 mL) pen Inject 50 Units under the skin once daily at bedtime. 0 07/03/2023 Active Start: 02-10-2023 Basaglar KwikP en 100 units/mL subcutaneous solution 50 unit(s), SubCutaneous, Daily, # 15 mL, Refills(s) 2, Pharmacy: [id number], 140.6, cm, 02/10/23 11:29:00 EDT, Height/Length Dosing, 79.2, kg, 02/10/23 11:29:00 EDT, Weight Dosing Start Date: 02/10/23 Status: Ordered Start: 02-07-2023 Basaglar KwikP en 100 units/mL subcutaneous solution See Instructions, 50 units daily, # 15 mL, Refills(s) 0, Pharmacy: [place] [id number] Start Date: 02/07/23 Status: Ordered Start: 01-31-2021 [...] 9:05am Basaglar KwikPen 100 UNIT/ML Subcutaneous Active oxybutynin chloride 5 mg oral tablet (20 sources) Cholinergic Muscarinic Antagonist Start: 07-03-2023 take 5 mg by mouth once daily Oxybutynin Chloride Active 5 MG PO Daily September 12, 2023 1:00am Start: 02-10-2023 take 1 tablet by dayo th once daily oxybutynin 10 mg ER Tab 10 mg = 1 tab(s), Oral, Daily, # 90 tab(s), Refills(s) 0, Pharmacy: [facility], 140.6, cm, 02/10/23 11:29:00 EDT, Height/Length Dosing, [...] a day Active potassium chloride 10 meq extended release oral capsule (20 sources) Start: 09-12-2023 take 10 mEq by mouth once daily Potassium Chloride Active 10 MEQ PO Daily September 12, 2023 1:00am Start: 07-03-2023 potassium chlo ride CR 10 mEq ER tablet 1 tablet (10 mEq) once daily. 0 07/03/2023 Active Start: 02-05-2023 potassium chlo ride 10 mEq [...] Active rosuvastatin calcium 5 mg oral tablet (20 sources) HMG-CoA Reductase Inhibitor Start: 06-23-2017 End: 09-16-2024 take 1 tablet by mouth once daily at bedtime Rosuvastatin (Crestor) 5 mg Tablet Active 5 MG PO Daily at bedtime June 23, 2017 1:00am take 1 tablet by dayo th every twenty-four hours Rosuvastatin Calcium 20 MG 1 tablet Oral ly Once a day Active Vitamin C 500 [...] 0 Refills: 0 Ordered: 19-Dec-2016 DO Active ascorbic acid 500 mg extended release oral capsule (7 sources) Vitamin C Start: 09-11-2017 End: 09-09-2023 take 1 capsule by mouth once daily Ascorbic Acid (Vitamin C) (Vitamin C) 500 mg Capsule, Extended Release Discontinued 500 MG PO Daily September 11, 2017 1:00am September 09, 2023 4:26pm Start: 07-16-2017 End: 09-11-2017 take 1 tablet [...] 9:40am Vitamin C 500 MG Orally Active atorvastatin 80 mg oral tablet (7 sources) HMG-CoA Reductase Inhibitor Start: 05-14-2017 End: 06-23-2017 take 80 mg by mouth once daily Atorvastatin Discontinued 80 MG PO Daily May 14, 2017 12:00am June 23, 2017 4:33pm lisinopril 2.5 mg oral tablet (18 sources) Angiotensin Converting Enzyme Inhibitor Start: 05-14-2017 End: 07-20-2018 take 2.5 mg by mouth once daily Lisinopril Discontinued 2.5 MG PO Daily May 14, 2017 12:00am July 20, 2018 7:43am take 1 tablet by dayo every twenty-four hours Lisinopril 5 MG 1 tablet Orally Once a day Active losartan potassium 25 mg oral tablet (2 sources) Angiotensin 2 Receptor Miquel Start: 07-20-2018 End: 09-09-2023 take 25 mg by mouth once daily at bedtime Losartan Discontinued 25 MG PO Daily at bedtime July 20, 2018 1:00am September 09, 2023 4:26pm metoprolol tartrate 25 mg oral tablet (13 sources) beta-Adrenergic Miquel Start: 05-14-2017 End: 06-23-2017 take 25 mg by mouth twice daily Metoprolol Tartrate Discontinued 25 MG PO Twice daily May 14, 2017 12:00am June 23, 2017 4:33pm End: 09-17-2023 take 1 tablet by mouth every twelve hours metoprolol tartrate (Lopressor) 25 mg tablet 1 tablet (25 mg) every 12 hours. 0 09/17/2023 Discontinued (Therapy completed) take 1 tablet by dayo th every twelve hours Metoprolol Tartrate 25 MG Oral Tablet TAKE 1 TABLET Every twelve hours Quantity: 60 Refills: 0 Ordered: 19-Dec-2016 [employer], Veronica Active Multiple Vitamins/Minerals TABS (10 sources) Multiple Vitamins/Minerals TABS TAKE 1 TABLET DAILY. Quantity: 0 Refills: 0 Ordered: 19-Dec-2016 DO Active nitroglycerin 0.4 mg sublingual tablet (2 sources) Nitrate Vasodilator Start: End: Nitroglycerin (Nitrostat) 0.4 mg Tablet, Sublingual Discontinued 0.4 MG SUBLINGUAL Q5M June 23, 2017 1:00am September 09, 2023 4:27pm regadenoson (Lexiscan) injection 0.4 mg (2 sources) Start: End: regadenoson (Lexiscan) injection 0.4 mg spironolactone 25 mg oral tablet (13 sources) Aldosterone Antagonist Start: End: take 1 tablet by mouth once daily in the morning Spironolactone (Aldactone) 25 mg Tablet Discontinued 25 MG PO Every morning June 23, 2017 1:00am September 09, 2023 4:27pm Tc-99m tetrofosmin (Myoview) injection 10 millicurie (2 sources) Start: End: Tc-99m tetrofosmin (Myoview) injection 10 millicurie Tc-99m tetrofosmin (Myoview) injection 30 millicurie (2 sources) Start: End: Tc-99m tetrofosmin (Myoview) injection 30 millicurie traMADol hydrochloride 50 mg oral tablet (2 sources) Opioid Agonist Start: End: take 50 mg by mouth every four to six hours Tramadol Discontinued 50 MG PO EVERY 4-6 HOURS 20 July 24, 2018 1:00am July 31, 2018 1:02am Vitamin B Complex (8 sources) Start: 017 End: 019 take 1 tablet by mouth once daily [...] stage 4 (severe)] Onset: 2 02-05-2023 Chronic Congestive heart failure; nonhypertensive (1 source) Congestive heart failure; nonhypertensive Onset: 8 Coronary atherosclerosis and other heart disease (20 sources) Chronic ischemic heart disease, unspecified; Translations: [Atherosclerotic heart disease of [place] coronary artery without angina pectoris] Onset: 8 09-17-2023 Chronic Coronary atherosclerosis and other heart disease (4 sources) Presence of aortocoronary bypass graft; Translations: [Presence of aortocoronary bypass graft] Onset: 3 Episodic Diabetes mellitus with complications (13 sources) 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; Translations: [Type 1 diabetes mellitus with diabetic chronic kidney disease] Onset: 2 Chronic Diabetes mellitus without complication (20 sources) Type 2 diabetes mellitus; Translations: [Diabetes mellitus without mention of complication, type II or unspecified type, not stated as uncontrolled] Onset: 3 02-05-2023 Chronic Diabetes mellitus without complication (1 source) Diabetes mellitus without complication Onset: 8 Disorders of lipid metabolism (20 sources) Dyslipidemia; Translations: [Other and unspecified hyperlipidemia] Onset: 3 Resolved: 3 02-05-2023 Chronic Essential hypertension (20 sources) Hypertensive disorder; Translations: [Unspecified essential hypertension] Onset: 3 09-17-2023 Chronic Essential hypertension (1 source) Essential hypertension Onset: 8 Genitourinary symptoms and ill-defined conditions (1 source) Urinary incontinence 02-10-2023 Chronic Gout and other crystal arthropathies (1 source) Gout 02-05-2023 Chronic Heart valve disorders (20 sources) Mitral valve regurgitation; Translations: [Mitral valve disorders] Onset: 3 07-08-2023 Chronic Nutritional deficiencies (1 source) Vitamin D deficiency 02-05-2023 Chronic Occlusion or stenosis of precerebral arteries (20 sources) Right carotid artery occlusion; Translations: [Occlusion and stenosis of carotid artery without mention of cerebral infarction] Onset: 3 09-17-2023 Chronic Osteoarthritis (14 sources) Osteoarthritis of left hip joint; Translations: [Unilateral primary osteoarthritis, left hip] Chronic Other circulatory disease (2 sources) Peripheral vascular angioplasty status; Translations: [Peripheral vascular angioplasty status] Onset: 3 Episodic Other lower respiratory disease (5 sources) Dyspnea; Translations: [Shortness of breath] Onset: 4 09-17-2023 Episodic Other lower respiratory disease (2 sources) Shortness of breath; Translations: [Shortness of breath] Onset: 4 Episodic Other nervous system disorders (7 sources) Chronic pain; Translations: [Other chronic pain] 09-29-2023 Chronic Other nervous system disorders (1 source) Other chronic pain Chronic Other non-traumatic joint disorders (1 source) Pain in left hip Episodic Other non-traumatic joint disorders (1 source) Hip pain; Translations: [Pain in left hip] 09-29-2023 Episodic Other nutritional; endocrine; and metabolic disorders (14 sources) Body mass index 30+ - obesity; Translations: [Body Mass Index 35.0-35.9, adult] Onset: 4 09-17-2023 Chronic Other nutritional; endocrine; and metabolic disorders (2 sources) Obese class II; Translations: [Obesity, unspecified] Chronic Other nutritional; endocrine; and metabolic disorders (8 sources) Obesity; Translations: [Obesity, unspecified] Chronic Other nutritional; endocrine; and metabolic disorders (2 sources) Body mass index (BMI) 32.0-32.9, adult; Translations: [Body mass index (BMI) 32.0-32.9, adult] Onset: 4 Chronic Peripheral and visceral atherosclerosis (20 sources) Peripheral vascular disease; Translations: [Peripheral vascular disease, unspecified] Onset: 3 07-08-2023 Chronic Residual codes; unclassified (10 sources) Other specified health status; Translations: [Statin intolerance] Episodic Residual codes; unclassified (2 sources) Swelling - edema - symptom; Translations: [Edema] Episodic Screening and history of mental health and substance abuse codes (20 sources) Ex-smoker; Translations: [Personal history of tobacco use] Onset: 4 09-17-2023 Episodic Comment on above: Quit 25+ years ago; Spondylosis; intervertebral disc disorders; other back problems (11 sources) Spondylosis without myelopathy or radiculopathy, lumbosacral region; Translations: [Other intervertebral disc degeneration, lumbar region] Onset: 2 Chronic Spondylosis; intervertebral disc disorders; other back problems (5 sources) Sciatica, unspecified side; Translations: [Sciatica, left side] Onset: 2 09-29-2023 Episodic Spondylosis; intervertebral disc disorders; other back problems [...] Unclassified (2 sources) Athscl heart disease of [place] coronary artery w/o ang pctrs / I25.10(ICD-9) Onset: 8 Unclassified (1 source) Abnormal electrocardiogram [ECG] [EKG] / R94.31(ICD-9) Onset: 8 Unclassified (1 source) Presence of aortocoronary bypass graft / Z95.1(ICD-9) Onset: 8 Unclassified (1 source) Old myocardial infarction / I25.2(ICD-9) Onset: 8 Unclassified (1 source) Patient encounter status 02-10-2023 Unclassified (1 source) Pain in left hip; Translations: [Pain in left hip] Onset: Urinary tract infections (2 sources) Urinary tract infectious disease; Translations: [Urinary tract infection, site not specified] 09-10-2023 Episodic Past or Other Problems Problem Classification Problem Date Documented Date Episodic/Chronic Conditions associated with dizziness or vertigo (20 sources) Dizziness; Translations: [Dizziness and giddiness] Onset: 07-08-2023 07-08-2023 Episodic Fluid and electrolyte disorders (20 sources) Hyperkalemia; Translations: [Hyperpotassemia] Onset: 07-08-2023 07-08-2023 Episodic Other circulatory disease (20 sources) Carotid bruit; Translations: [Other symptoms involving cardiovascular system] Onset: 07-08-2023 07-08-2023 Episodic Other circulatory disease (20 sources) History of angioplasty; Translations: [Other postprocedural status] Onset: 07-08-2023 09-17-2023 Episodic Other connective tissue disease (20 sources) Pain in lower limb; Translations: [Pain in limb] Onset: 07-08-2023 07-08-2023 Episodic Other lower respiratory disease (20 sources) Dyspnea on exertion; Translations: [Shortness of breath] Onset: 07-08-2023 07-08-2023 Episodic Other screening for suspected conditions (not mental disorders or infectious disease) (20 sources) Electrocardiogram abnormal; Translations: [Nonspecific abnormal electrocardiogram [ECG] [EKG]] Onset: 07-08-2023 Resolved: 09-17-2023 09-17-2023 Episodic Residual codes; unclassified (17 sources) Edema; Translations: [Edema] Onset: 07-08-2023 07-08-2023 Episodic Unclassified (1 source) Other low back pain M54.59 Unclassified (11 sources) Onset: 09-17-2023 09-17-2023 Results Test Name Value Interpretation Reference Range Enrique richter [facility] 2023 Home Health Records [id number] #[id number] Normal [facility] [place] Heart Perfusion W stress and W radionuclide [place] 10-14-2023 Abnormal Lexiscan Myoview cardiac perfusion stress test. No myocardial ischemia by perfusion imaging. No myocardial infarction by perfusion imaging. Abnormal left ventricular systolic function with mild global hypokinesis. Left ventricular ejection fraction 48 %. No previous studies are available for comparison. Signed by: Charlotte Cordon 10/14/2023 4:27 PM Dictation workstation: [id number] MMODAL Interpreted By: Charlotte Cordon and Giannuzzi Michael STUDY: MYOCARDIAL PERFUSION STRESS TEST WITH LEXISCAN Performing facility: [facility], [address] [place] [address], [address] Provider: Joey Ruano MD, [facility] PCP: Dr. Marsha Best Supervising provider: Joey Cobb DO, [facility] INDICATION: CAD; CABG ICM SOB; HISTORY: Gender: F; Age: 78 y/o ; Height: HT 149.9 cm cm; Weight: WT 74.844 kg kg. High Cholesterol; CAD; Diabetes; Previous [place]; HTN; SOB; Quit smoking 27 years ago. Cardiac catheterization on 2016. PTCA on 2016. CABG on 2016. COMPARISON: No comparison. ACCESSION NUMBER(S): [id number] ORDERING CLINICIAN: TOM RUANO TECHNIQUE: ONE DAY protocol. Stress injection: Date:10-14-23, 33.1 mCi of Myoview IV 20 seconds after rapid injection of Lexiscan. Rest injection: Date: 10-14-23, 11.1 mCi of Myoview IV at rest. The patient had a rapid injection of 0.4 mg of Lexiscan IV over 10 seconds. Imaging was performed by gated tomographic technique. Reason for Lexiscan: Wheelchair STRESS TEST DATA: Resting heart rate was 78 BPM. Resting blood pressure was 108/68 mmHg. Peak blood pressure was 94/58 mmHg. Peak heart rate was 83 BPM. TEST TERMINATED DUE TO: Protocol completed FINDINGS: STRESS TEST RESULTS: Resting electrocardiogram revealed normal sinus rhythm with first-degree AV block, old inferior myocardial infarction, anteroseptal myocardial infarction of undetermined age. There were no significant ischemic ECG changes or dysrhythmias. The patient did not have chest pains/symptoms during procedure. There was a normal recovery phase. IMAGING RESULTS: Image quality was good. Rest and stress tomographic images were reviewed and revealed normal perfusion. There was no evidence of perfusion abnormality consistent with ischemia. There was no evidence of perfusion abnormality consistent with infarction. There was no left ventricular dilatation with stress. Overall left ventricular systolic function appeared to be abnormal. There was mild global hypokinesis. LVEF was 48%. TID is 1.09 and is normal. There was no evidence of attenuation artifact. MMODAL Charlotte Cordon MD - 10/14/2023 Interpreted By: Charlotte Cordon and Giannuzzi Michael STUDY: MYOCARDIAL PERFUSION STRESS TEST WITH LEXISCAN Performing facility: [facility], [address] [place] [address], [address], [address] Provider: Joey Ruano MD, [facility] PCP: Dr. Marsha Best Supervising provider: Joey Cobb DO, [facility] INDICATION: CAD; CABG ICM SOB; HISTORY: Gender: F; Age: 78 y/o ; Height: HT 149.9 cm cm; Weight: WT 74.844 kg kg. High Cholesterol; CAD; Diabetes; Previous [place]; HTN; SOB; Quit smoking 27 years ago. Cardiac catheterization on 2017. PTCA on 2017. CABG on 2017. COMPARISON: No comparison. ACCESSION NUMBER(S): [id number] ORDERING CLINICIAN: TOM RUANO TECHNIQUE: ONE DAY protocol. Stress injection: Date:10-14-23, 33.1 mCi of Myoview IV 20 seconds after rapid injection of Lexiscan. Rest injection: Date: 10-14-23, 11.1 mCi of Myoview IV at rest. The patient had a rapid injection of 0.4 mg of Lexiscan IV over 10 seconds. Imaging was performed by gated tomographic technique. Reason for Lexiscan: Wheelchair STRESS TEST DATA: Resting heart rate was 78 BPM. Resting blood pressure was 108/68 mmHg. Peak blood pressure was 94/58 mmHg. Peak heart rate was 83 BPM. TEST TERMINATED DUE TO: Protocol completed FINDINGS: STRESS TEST RESULTS: Resting electrocardiogram revealed normal sinus rhythm with first-degree AV block, old inferior myocardial infarction, anteroseptal myocardial infarction of undetermined age. There were no significant ischemic ECG changes or dysrhythmias. The patient did not have chest pains/symptoms during procedure. There was a normal recovery phase. IMAGING RESULTS: Image quality was good. Rest and stress tomographic images were reviewed and revealed normal perfusion. There was no evidence of perfusion abnormality consistent with ischemia. There was no evidence of perfusion abnormality consistent with infarction. There was no left ventricular dilatation with stress. Overall left ventricular systolic function appeared to be abnormal. There was mild global hypokinesis. LVEF was 48%. TID is 1.09 and is normal. There was no evidence of attenuation artifact. IMPRESSION: Abnormal Lexiscan Myoview cardiac perfusion stress test. No myocardial ischemia by perfusion imaging. No myocardial infarction by perfusion imaging. Abnormal left ventricular systolic function with mild global hypokinesis. Left ventricular ejection fraction 48 %. No previous studies are available for comparison. Signed by: Charlotte Cordon 10/14/2023 4:27 PM Dictation workstation: [id number] [facility] Work Phone: Radiology Study observation (narrative) [facility] Work Phone: NM Heart Perfusion W stress and W radionuclide IVOrdered By: Charlotte Cordon on 10-14-2023 [facility] Work Phone: NUCLEAR STRESS TESTon 2023 NUCLEAR STRESS TEST Interpreted By: Charlotte Cordon, and Omar Hernandez STUDY: MYOCARDIAL PERFUSION STRESS TEST WITH LEXISCAN Performing facility: [facility], [address] [place] [address], [address], [place] [address] [facility] Provider: Joey Ruano MD, FACC PCP: Dr. Marsha Best Supervising provider: Joey Cobb DO, FACC INDICATION: CAD; CABG ICM SOB; HISTORY: Gender: F; Age: 78 y/o ; Height: HT 149.9 cm cm; Weight: WT 74.844 kg kg. High Cholesterol; CAD; Diabetes; Previous [place]; HTN; SOB; Quit smoking 27 years ago. Cardiac catheterization on 2017. PTCA on 2016. CABG on 2017. COMPARISON: No comparison. ACCESSION NUMBER(S): [id number] ORDERING CLINICIAN: TOM RUANO TECHNIQUE: ONE DAY protocol. Stress injection: Date:10-14-23, 33.1 mCi of Myoview IV 20 seconds after rapid injection of Lexiscan. Rest injection: Date: 10-14-23, 11.1 mCi of Myoview IV at rest. The patient had a rapid injection of 0.4 mg of Lexiscan IV over 10 seconds. Imaging was performed by gated tomographic technique. Reason for Lexiscan: Wheelchair STRESS TEST DATA: Resting heart rate was 78 BPM. Resting blood pressure was 108/68 mmHg. Peak blood pressure was 94/58 mmHg. Peak heart rate was 83 BPM. TEST TERMINATED DUE TO: Protocol completed FINDINGS: STRESS TEST RESULTS: Resting electrocardiogram revealed normal sinus rhythm with first-degree AV block, old inferior myocardial infarction, anteroseptal myocardial infarction of undetermined age. There were no significant ischemic ECG changes or dysrhythmias. The patient did not have chest pains/symptoms during procedure. There was a normal recovery phase. IMAGING RESULTS: Image quality was good. Rest and stress tomographic images were reviewed and revealed normal perfusion. There was no evidence of perfusion abnormality consistent with ischemia. There was no evidence of perfusion abnormality consistent with infarction. There was no left ventricular dilatation with stress. Overall left ventricular systolic function appeared to be abnormal. There was mild global hypokinesis. LVEF was 48%. TID is 1.09 and is normal. There was no evidence of attenuation artifact. IMPRESSION: Abnormal Lexiscan Myoview cardiac perfusion stress test. No myocardial ischemia by perfusion imaging. No myocardial infarction by perfusion imaging. Abnormal left ventricular systolic function with mild global hypokinesis. Left ventricular ejection fraction 48 %. No previous studies are available for comparison. Signed by: Charlotte Cordon 10/14/2023 4:27 PM Dictation workstation: [id number] [facility] Recordson 2023 [facility] [id number] #1.00TIFF [facility] Retail - Clinical Noteon Retail - Clinical Note [id number] #1.00TIFF Normal [facility] Recordson 2023 Home Health Records [id number] #1.00TIFF [facility] Home Health Recordson 2023 Home Health Records [id number] #1.00TIFF [facility] Home Health Records [id number] #1.00TIFF Normal [facility] Recordson 2023 Home Health Records [id number] #1.00TIFF [facility] Home Health Recordson 2023 Home Health Records [id number] #1.00TIFF [facility] ECG 12-Leadon 09-09-2023 ECG 12-Lead [id number] #1.00TIFF [facility] Home Health Recordson 2023 Home Health Records [id number] #1.00TIFF [facility] ED Note-Physicianon 09-01-19 ED Note-Physician [id number] #1.00TIFF [facility] RAD - MISCon 09-01-2023 RAD - MISC [id number] #1.00TIFF [facility] Ambulatory Visit Summaryon 0 08-21-2023 Ambulatory Visit [...] 3:40 PM EDT With: Maxine Sanchez Where: [facility] [place] Normal [facility] Family Medicine Office/Clini c Noteon 08-21-2023 Family Medicine [...] of clutter to prevent tripping and/or falling. [place] Advance Directives reviewed, patient has on file with town manager office. Patient denies any problems with ADL?s [...] monitor f (more content not included)... Normal [facility] Comment on above: Result Comment: Elec tronically Signed By: Maxine Sanchez\.br\Date and Time Signed: 08/21/23 09:12 EST\.br\Electronically Co-Signed By: Cecilia Lyles\.br\Date and Time Co-Signed: 08/21/23 08:13 EST [...] EST, Weight Dosing HgbA1c Lab Specimen Collect [id number] 3. Long-term insulin use (Z79.4: senior living (current) use of insulin) insulins changed to [...] virus vaccine, inactivated 07/03/2022 Recorded SARS-CoV-2 (COVID-19) mRNAMUL.ORD![id number] 06/17/2022 Re (more content not included)... Normal [facility] Comment on above: Result Comment: Elec tronically Signed By: Maxine Sanchez\.br\Date and Time Signed: 08/21/23 08:02 EST Formson 08-21-2023 Forms [id number] #1.00TIFF Normal [facility] [id number] 08-21-2023 HbA1c (Bld) [Mass fraction] 8.2 % High <=5.9 [facility] Comment on above: Performed By: #### 7 [id number] ####[facility] [id number] [place] [address] Patient Educationon 08-21-19 24 Patient Education Caregiving [...] night-lights. ? Place frequently used items in ffil-kd-hkowj places. Lower the shelves around your home [...] the way. ? Do not use floor gabonese or wax that makes floors slippery. If [...] include working with a physical therapist or fitness trainer to improve your strength, balance, and endurance. Where to find more information ? Centers for Disease Control and Prevention, [place]: www.cdc.gov ? National [place] on Aging: www.jasmina.nih.gov Contact a health care [...] health ca (more content not included)... Normal [facility] Ambulatory Visit Summaryon 0 08-20-2023 Ambulatory Visit Summary LUCRECIADARRELLTRAVONRA Baez :1945 Visit Date:08/20/2023 Ambulatory Visit Instructions Your Diagnosis Chronic kidney disease, stage 3 unspecified Your Care Team Attending Physician - Maxine Sanchez Primary Care Physician - Maxine Sanchez This Is Your Medications List Misc Prescription ([facility] Prescription) acetaminophen (Tylenol) allopurinol (allopurinol 300 [...] 3:40 PM EDT With: Maxine Sanchez Where: [facility] Ambulatory Visit Summary LEXI TATUM Nestor :1945 Visit Date:08/20/2023 Ambulatory Visit Instructions Your Care Team Attending Physician - Maxine Sanchez Primary Care Physician - Maxine Sanchez This Is Your Medications List Misc Prescription ([facility] Prescription) acetaminophen (Tylenol) allopurinol (allopurinol 300 [...] you for choosing us for your care. [facility] Pre-Visit Planningon 023 Pre-Visit Planning - From: [...] feel free to contact me at extension [phone]. Thank you! Bibiana Walter LPN - From: Maxine Sanchez To: Bibiana Walter; Sent: 05/28/2023 14:06:51 EST Subject: RE: Pre-Visit Planning Caller Name: LEXI TATUM; Caller Number: H , M chronic kidney disease stage 3, unspecified Normal [address] [facility] Pre-Visit Planning - From: Bibiana Walter To: [...] LEXI TATUM; Caller Number: H , M class 3 obesity with Type 1 diabetes and hypercholesterolemia Normal [address] [facility] Ambulatory Visit Summaryon 1 07-21-2022 Ambulatory Visit Summary ALONALEXI MARTINEZ Nestor :1945 Visit Date:05/21/2023 Ambulatory Visit Instructions [...] 11:00 AM EST With: Maxine Sanchez Where: [facility] Family Medicine Office/Clini c Noteon 05-21-2023 Family [...] 3 months. Ordered: HgbA1c Lab Specimen Collect [id number] 2. Long-term insulin use (Z79.4: senior living (current) use of insulin) see above Ordered: HgbA1c Lab Specimen Collect [id number] 3. Former smoker (Z87.891: Personal history of [...] virus vaccine, inactivated 07/03/2022 Recorded SARS-CoV-2 (COVID-19) mRNAMUL.[id number] 06/17/2022 Recorded 2023-02-10: TPV75 SARS-CoV-2 (COVID-19) mRNA [...] Recorded pneumococcal 13-valent vaccine 10/30/2016 Recorded Normal [facility] Comment on above: Result Comment: Elec tronically Signed By: Maxine Sanchez\.br\Date and Time Signed: 05/21/23 13:14 EST [id number] 05-21-2023 HbA1c (Bld) [Mass fraction] 8.7 % High <=5.9 [facility] Comment on above: Performed By: #### 7 [id number] #### [facility] [address] [place] [address] Ambulatory Visit Summaryon 0 03-05-2023 Ambulatory Visit Summary LEXI TATUM :1945 Visit Date:03/05/2023 Ambulatory Visit Instructions Your Diagnosis BMI 39.0-39.9,adult Former smoker Flank pain Diabetes Your Care Team Attending Physician - Maxine Sanchez Primary Care Physician - Maxine Sanchez This Is Your Medications List Misc Prescription ([facility] Prescription) allopurinol (allopurinol 300 mg Tab) [...] Appointments Friday 1:00 PM EDT With: Where: [facility] [place] Normal [address] [place] [address]- \.br\ Medications\.br\ What How Much When Why [...] Vitamin D deficiency\.br\ Wellness examination\.br\ \.br\ [facility] Family Medicine Office/Clini c Noteon 03-05-2023 Family Medicine Office/Clinic Note HPI Staff Lexi demond a 77 year old female presenting for [...] continue BS log. may consider referral to telephone interceptor operator at that visit. 2. Flank pain (R10.9: [...] virus vaccine, inactivated 07/03/2022 Recorded SARS-CoV-2 (COVID-19) mRNAMUL.ORD![id number] 06/17/2022 Recorded 2023-02-10: TPV75 SARS-CoV-2 (COVID-19) mRNA [...] Recorded pneumococcal 13-valent vaccine 10/30/2016 Recorded Normal [facility] Comment on above: Result Comment: Elec tronically Signed By: Shraddha GAMBLE, Maxine Baez\.br\Date and Time Signed: 03/05/23 14:10 EDT Retail - Clinical Noteon Retail - Clinical Note [id number] #1.00CD:127 Normal [facility] Family Medicine Office/Clini c Noteon 02-11-2023 Family Medicine Office/Clinic Note HPI Staff Lexi is a 77 year old female presenting to [facility] Establish Care: History: Any previous diagnosis: acute systolic heart failure, CKD stage 4, Diabetic peripheral neuropathy, Vitamin D deficiency, Type 1 diabetes, gout, osteoarthritis, pure hypercholesterolemia History of seeing any specialist: Dr Echeverria [place] heart, Dr Zhang Marquis specialist, Pain Management Dr Blake Baez hip injections, Dr Rust Spa Host When was your last doctors visit: Last provider: Any recent labs: 01/30/22 A1c 9.4 Health Maintenance UTD: Colonoscopy: aged out Mammogram: aged out Pelvic/Pap: aged out Acute: Current issues/complaints: Pt would like to discuss Incontinence currently is taking oxybutynin 5mg daily, pt knows she she has to go and is unable to stop flow. Edema: pt would like to discuss pt states Lamp Inspector isn't concerned Pt needs refill on Basaglar, [...] Metabolic Panel eGFR HgbA1c Lab Specimen Collect [id number] Lipid Panel Thyroid Stimulating Hormone Vitamin D 25 Hydroxy 2. BMI 40.0-44.9, adult (Z68.41: Body mass index [BMI] 40.0-44.9, adult) BMI education complete Ordered: oxybutynin, 10 mg = 1 tab(s), Oral, Daily, # 90 tab(s), Refills(s) 0, Pharmacy: [facility], 140.6, cm, 02/10/23 11:29:00 EDT, Height/Length Dosing, 79.2, kg, 02/10/23 11:29:00 EDT, Weight Dosing Lab Specimen Collect 37237 Vitamin D 25 Hydroxy 3. Former smoker (Z87.891: Personal history of nicotine dependence) continue not smoking Ordered: oxybutynin, 10 mg = 1 tab(s), Oral, Daily, # 90 tab(s), Refills(s) 0, Pharmacy: [facility], 140.6, cm, 02/10/23 11:29:00 EDT, Height/Length Dosing, 79.2, kg, 02/10/23 11:29:00 EDT, Weight Dosing Lab Specimen Collect 93608 Vitamin D 25 Hydroxy 4. Type 1 [...] 90 tab(s), Refills(s) 0, Pharmacy: [facility] (more content not included)... Normal [facility] Comment on above: Result Comment: Elec tronically [...] Follow-Up Appointments Friday 1:00 PM EDT Where: [facility] [place] Normal [facility] Auto Diffon 02-10-2023 Basophils/100 WBC (Bld) 0.4 % Normal 0.0-2.0 [facility] Comment on above: Order Comment: Order Added by Discern Expert. Performed By: #### 7 [id number] #### [facility] [address] [place] [address] Basophils/Leukocyt es Auto (Bld) [Pure # fraction] 0.0 E9/L Normal 0.0-0.2 [facility] Comment on above: Order Comment: Order Added by Discern Expert. Performed By: #### 7 [id number] #### [facility] [address] [place] [address] Eosinophils/100 WBC (Bld) 2.6 % Normal 0.0-8.0 [facility] Comment on above: Order Comment: Order Added by Vianney Expert. Performed By: #### 7 [id number] #### [facility] [address] [place] [address] Eosinophils/Leukoc ytes Auto (Bld) [Pure # fraction] 0.2 E9/L Normal 0.0-0.5 [facility] Comment on above: Order Comment: Order Added by Discern Expert. Performed By: #### 7 [id number] #### [facility] [address] [place] [address] Lymphocytes/100 WBC (Bld) 23.0 % Normal 14.0-50.0 [facility] Comment on above: Order Comment: Order Added by Discern Expert. Performed By: #### 7 [id number] #### [facility] [address] [place] [address] Lymphocytes/Leukoc ytes Auto (Bld) [Pure # fraction] 1.8 E9/L Normal 1.0-4.0 [facility] Comment on above: Order Comment: Order Added by Discern Expert. Performed By: #### 7 [id number] #### [facility] [address] [place] [address] Monocytes/100 WBC (Bld) 6.6 % Normal 4.0-14.0 [facility] Comment on above: Order Comment: Order Added by Discern Expert. Performed By: #### 7 [id number] #### [facility] [address] [place] [address] Monocytes/Leukocyt es Auto (Bld) [Pure # fraction] 0.5 E9/L Normal 0.2-1.0 [facility] Comment on above: Order Comment: Order Added by Discern Expert. Performed By: #### 7 [id number] #### [facility] [address] [place] [address] Neutrophils/100 WBC (Bld) 67.4 % Normal 36.0-75.0 [facility] Comment on above: Order Comment: Order Added by Discern Expert. Performed By: #### 7 [id number] #### [facility] [address] [place] [address] Neutrophils/Leukoc ytes Auto (Bld) [Pure # fraction] 5.1 E9/L Normal 2.0-7.5 [facility] Comment on above: Order Comment: Order Added by Discern Expert. Performed By: #### 7 [id number] #### [facility] [address] [place] [address] CBC w/ Auto Diffon 3 Erythrocyte distribution width (RBC) [Ratio] 16.0 % High 10.9-14.2 [facility] Comment on above: Performed By: #### 7 [id number] #### [facility] [address] [place] [address] Hematocrit (Bld) [Volume fraction] 40.5 % Normal 34.0-46.0 [facility] Comment on above: Performed By: #### 7 [id number] #### [facility] [address] [place] [address] Hemoglobin (Bld) [Mass/Vol] 13.5 g/dL Normal 12.0-16.0 [facility] Comment on above: Performed By: #### 7 [id number] #### [facility] [address] [place] [address] MCH (RBC) [Entitic mass] 31.7 pg Normal 27.0-34.0 [facility] Comment on above: Performed By: #### 7 [id number] #### [facility] [address] [place] [address] MCHC (RBC) [Mass/Vol] 33.3 g/dL Normal 31.4-36.0 [facility] Comment on above: Performed By: #### 7 [id number] #### [facility] [address] [place] [address] MCV (RBC) [Entitic vol] 95.4 fL Normal 80.0-100.0 [facility] Comment on above: Performed By: #### 7 [id number] #### [facility] [address] [place] [address] Platelet mean volume (Bld) [Entitic vol] 10.1 fL Normal 6.4-10.8 [facility] Comment on above: Performed By: #### 7 [id number] #### [facility] [address] [place] [address] Platelets (Bld) [#/Vol] 192.0 E9/L Normal 150.0-500.0 [facility] Comment on above: Performed By: #### 7 [id number] #### [facility] [address] [place] [address] RBC (Bld) [#/Vol] 4.2 E12/L Low 4.3-5.9 [facility] Comment on above: Performed By: #### 7 [id number] #### [facility] [address] [place] [address] WBC corrected for nucl RBC Auto (Bld) [#/Vol] 7.6 E9/L Normal 4.0-11.0 [facility] Comment on above: Performed By: #### 7 [id number] #### [facility] [address] [place] [address] CHEMISTRYOrdered By: SYSTEM SYSTEM on 02-10-2023 25-hydroxyvitamin [...] rate/Area] 39 mL/min/1.73 m2 Low >=59mL/min/1.73 m2 [facility] Chem S Globulin (S) [Mass/Vol] 3.6 g/dL Normal 1.4 - 4.0 gm/dL FT Remisol Glucose [Mass/Vol] 235 mg/dL High 55 - 199 mg/dL FT Remisol Potassium [Moles/Vol] 4.0 mmol/L Normal 3.5 - 5.3 mmol/L FT Remisol Protein [Mass/Vol] 7.2 g/dL Normal 6.0 - 7.8 gm/dL F [facility] Remisol Sodium [Moles/Vol] 137 mmol/L Normal 135 - 145 mmol/L FT Remisol Triglyceride [Mass/Vol] 218 mg/dL High <=149mg/dL FT Remisol TSH Qn 1.79 m[IU]/L Normal 0.34 - 5.60 mcIU/mL FT C Remisol Urea nitrogen [Mass/Vol] 23 mg/dL High 5 - 21 mg/dL FT Remisol Urea nitrogen/Creatinin e [Mass ratio] 16 mg/mg Normal 10 - 20 FT Remisol CHEMISTRYOrdered By: Natalio Kraus ertolasio on 02-10-2023 HbA1c (Bld) [Mass fraction] 10.9 % High <=5.9% [facility] ChemAutoSS CMPon 02-10-2023 Albumin [Mass/Vol] 3.6 g/dL Normal 3.3-5.0 [facility] Comment on above: Performed By: #### 7 [id number] #### [facility] [address] [place] [address] Albumin/Globulin (S) [Mass conc ratio] 1.0 Low 1.1-2.2 [facility] Comment on above: Performed By: #### 7 [id number] #### [facility] [address] [place] [address] ALP [Catalytic activity/Vol] 57 Int._Unit/L Normal 21-98 [facility] Comment on above: Performed By: #### 7 [id number] #### [facility] [address] [place] [address] ALT No additional P-5'-P [Catalytic activity/Vol] 12 Int._Unit/L Normal 6-46 [facility] Comment on above: Performed By: #### 7 [id number] #### [facility] [address] [place] [address] Anion gap [Moles/Vol] 15 mmol/L Normal 6-16 [facility] Comment on above: Performed By: #### 7 [id number] #### [facility] [address] [place] [address] AST [Catalytic activity/Vol] 18 Int._Unit/L Normal 5-43 [facility] Comment on above: Performed By: #### 7 [id number] #### [facility] [address] [place] [address] Bilirubin [Mass/Vol] 0.5 mg/dL Normal 0.0-1.1 [facility] Comment on above: Performed By: #### 7 [id number] #### [facility] [address] [place] [address] Calcium [Mass/Vol] 9.8 mg/dL Normal 8.9-11.1 [facility] Comment on above: Performed By: #### 7 [id number] #### [facility] [address] [place] [address] Chloride [Moles/Vol] 98 mmol/L Low 101-111 [facility] Comment on above: Performed By: #### 7 [id number] #### [facility] [address] [place] [address] CO2 [Moles/Vol] 28 mmol/L Normal 21-31 [facility] Comment on above: Performed By: #### 7 [id number] #### [facility] [address] [place] [address] Creatinine [Mass/Vol] 1.4 mg/dL High 0.5-1.3 [facility] Comment on above: Performed By: #### 7 [id number] #### [facility] [address] [place] [address] Globulin (S) [Mass/Vol] 3.6 g/dL Normal 1.4-4.0 [facility] Comment on above: Performed By: #### 7 [id number] #### [facility] [address] [place] [address] Glucose [Mass/Vol] 235 mg/dL High 55-199 [facility] Comment on above: Result Comment: If t his glucose result represents a fasting glucose, interpretation should refer to the following reference range: 55-99 mg/dL Performed By: #### 7 [id number] #### [facility] [address] [place] [address] Potassium [Moles/Vol] 4.0 mmol/L Normal 3.5-5.3 [facility] Comment on above: Performed By: #### 7 [id number] #### [facility] [address] [place] [address] Protein [Mass/Vol] 7.2 g/dL Normal 6.0-7.8 [facility] Comment on above: Performed By: #### 7 [id number] #### [facility] [address] [place] [address] Sodium [Moles/Vol] 137 mmol/L Normal 135-145 [facility] Comment on above: Performed By: #### 7 [id number] #### [facility] [address] [place] [address] Urea nitrogen [Mass/Vol] 23 mg/dL High 5-21 [facility] Comment on above: Performed By: #### 7 [id number] #### [facility] [address] [place] [address] Urea nitrogen/Creatinin e [Mass ratio] 16 No Units Normal 10-20 [facility] Comment on above: Performed By: #### 7 [id number] #### [facility] [address] [place] [address] HEMATOLOGYOrdered By: SYSTEM SYSTEM on 02-10-2023 Basophils/100 [...] 10.1 fL Normal 6.4 - 10.8 fL [facility] HemeAutoSS Platelets (Bld) [#/Vol] 192.0 E9/L Normal 150.0 - 500.0 E9/L [facility] HemeAutoSS RBC (Bld) [#/Vol] 4.2 E12/L Low 4.3 - 5.9 E12/L [facility] HemeAutoSS WBC corrected for nucl RBC Auto (Bld) [#/Vol] 7.6 E9/L Normal 4.0 - 11.0 E9/L [facility] HemeAutoSS [id number] 02-10-2023 HbA1c (Bld) [Mass fraction] 10.9 % High <=5.9 [facility] Comment on above: Performed By: #### 7 [id number] #### [facility] [address] [place] [address] Lipid Panelon 02-10-2023 Cholesterol [Mass/Vol] 196 mg/dL Normal 120-200 [facility] Comment on above: Performed By: #### 7 [id number] #### [facility] [address] [place] [address] Cholesterol in HDL [Mass/Vol] 50 mg/dL Invalid Interpretation Code [facility] Comment on above: Result Comment: HDL > or equal to 60 mg/dL: Low cardiovascular risk HDL < 40 mg/dL : High cardiovascular risk Performed By: #### 7 [id number] #### [facility] [address] [place] [address] Cholesterol in LDL [Mass/Vol] 106 mg/dL Normal <=129 [facility] Comment on above: Performed By: #### [id number] #### [facility] [address] [place] [address] Cholesterol in VLDL [Mass/Vol] 44 mg/dL High 7-40 [facility] Comment on above: Performed By: #### 7 [id number] #### [facility] [address] [place] [address] Triglyceride [Mass/Vol] 218 mg/dL High <=149 [facility] Comment on above: Performed By: #### 7 [id number] #### [facility] [address] [place] [address] TSHon 02-10-2023 TSH Qn 1.79 m[IU]/L Normal 0.34-5.60 [facility] Comment on above: Performed By: #### 7 [id number] #### [facility] [address] [place] [address] Vitamin D 25 Hydroxyon 02-10 25-hydroxyvitamin D3 [Mass/Vol] 52.9 ng/mL Normal 30.0-100.0 [facility] Comment on above: Result Comment: Vit rosario D deficiency has been defined as a level of serum 25-OH vitamin D less than 20 ng/mL (1,2) by the [place] [employer] and an Endocrine Society practice guideline. The Endocrine Society further defined vitamin D insufficiency as a level between 21 and 29 ng/mL (2). 1. IOM ([place] of [employer]). 2010. Dietary reference intakes for calcium and D. [place]: The National Academies Press. 2. Laney MF, Abhijeet NC, Stacey CHATMAN, et al. Evaluation, treatment, and prevention of vitamin D deficiency: an Endocrine Society clinical practice guideline. JCEM. 2010; 96 (7):1911-30. Performed By: #### 7 [id number] #### [facility] [address] [place] [address] eGFRon 02-10-2023 GFR/1.73 sq M.predicted among non-blacks MDRD (S/P/Bld) [Vol rate/Area] 39 mL/min/1.73 m2 Low >=59 [facility] Comment on above: Order Comment: Order added by Discern Expert. Result Comment: Peeled Potato Inspector saba kidney disease could be indicated at eGFR's of less than 60 mL/min/1.73m2. Kidney failure is indicated at less than 15 mL/min/1.73m2. Performed By: #### 7 [id number] #### [facility] [address] [place] [address] XR hip LT 1Von 12-04-2022 XR hip LT 1V [facility] Main [address] [address] XRay Report Signed Patient: Lexi Spence MR#: [id number] : 1945 Acct:[id number] Age/Sex: 77 / F ADM Date: 12/04/22 Loc: [facility] [place] Room: Type: [facility] CLI Attending Dr: Da Lozano II, MD Copies [...] Zayra Juarez M.D.12/04/2022 6:42 PM Dictation Location: [place] [address] Transcribed By: [facility] 12/04/221841 Dictated By: Zayra Juarez MD 12/04/221840 Signed By: 12/04/221841 Normal [facility] XR hip LT min 2V(w/wo pelvis )*on 11-12-2022 XR hip LT min 2V(w/wo pelvis)* [facility] Main [address] [address] XRay Report Signed Patient: Lexi Spence MR#: [id number] : 1945 Acct:[id number] Age/Sex: 77 / F ADM Date: 11/11/22 Loc: [facility] [place] Room: [facility] Attending Dr: Ross Colmenares MD Copies to: Ross Colmenares MD Ordering Provider: Ross Colmenares MD Date of Service: 11/11/22 XR/XR lumbar spine AP/LAT/FLX/EXT: Other spondylosis with radiculopathy, lumbar region ([id number]) XR/XR hip LT min 2V(w/wo pelvis)*: PAIN [...] Iraheta Jr., D.O.11/12/2022 12:06 PM Dictation Location: [place] [address] Transcribed By: [facility] 11/12/22 1206 Dictated By: Earnest Iraheta Jr, DO 11/12/22 1159 Signed By: 11/12/22 1206 [facility] Office Visit (Cardiology)on 07-25-2022 Follow-up visit Diagnoses/Problems Assessed S/P CABG x 3 (V45.81) (Z95.1) Ischemic cardiomyopathy (414.8) (I25.5) Hyperlipidemia (272.4) (E78.5) HTN (hypertension) (401.9) (I10) History of angioplasty (V45.89) (Z98.62) History of Dyslipidemia (272.4) (E78.5) CAD, multiple vessel (414.00) (I25.10) History of [place] (myocardial infarction) (412) (I25.2) Statin intolerance (995.27) [...] - Retrospective Authorization; Done: 25Jul2022 History of [place] (myocardial infarction), HTN (hypertension) Renew: Carvedilol 25 [...] History of angioplasty (V45.89) (Z98.62) History of [place] (myocardial infarction) (412) (I25.2) HTN (hypertension) (401.9) [...] breath. Gastrointe (more content not included)... Normal [employer] Tobacco Screening.on 023 Adult depression screening assessment No [facility] 250 DO Work Phone: Fall risk assessment a) No falls within the last year [facility] 250 DO Work Phone: Tobacco use status CPHS b) No [facility] 250 DO Work Phone: CBC AUTO DIFFon 01-30-2022 BASO # 0.0 103/ul Normal 0.0-0.1 [facility] Comment on above: Performed By: #### C BC #### [facility] [address] [place] [address] Dr. Yarely Roe Basophils/100 WBC (Bld) 0.4 % Normal 0.2-2.0 [facility] Comment on above: Performed By: #### C BC #### [facility] [address] [place] [address] [address] Yarely Roe EO # 0.2 103/ul Normal 0.0-0.7 [facility] Comment on above: Performed By: #### C BC #### [facility] [address] [place] [address] [address] Yarely Roe Eosinophils/100 WBC (Bld) 2.3 % Normal 0.9-7.0 [facility] Comment on above: Performed By: #### C BC #### [facility] [address] [place] [address] Dr. Yarely Roe Erythrocyte distribution width (RBC) [Ratio] 14.8 % Normal 11.0-15.0 [facility] Comment on above: Performed By: #### C BC #### [facility] [address] [place] [address] Dr. Yarely Roe Hematocrit (Bld) [Volume fraction] 42.0 % Normal 36.0-48.0 [facility] Comment on above: Performed By: #### C BC #### [facility] [address] [place] [address] Dr. Yarely Roe Hemoglobin (Bld) [Mass/Vol] 13.7 g/dL Normal 12.0-16.0 [facility] Comment on above: Performed By: #### C BC #### [facility] [address] [place] [address] Dr. Yarely Roe IG # 0.03 10e3/ul Normal 0.00-0.03 [facility] Comment on above: Performed By: #### C BC #### [facility] [address] [place] [address] Dr. Yarely Roe IG % 0.4 % Normal 0.0-0.5 [facility] Comment on above: Performed By: #### C BC #### [facility] [address] [place] [address] Dr. Yarely Roe LYMPH # 1.7 103/ul Normal 1.2-3.8 [facility] Comment on above: Performed By: #### C BC #### [facility] [address] [place] [address] Dr. Yarely Roe Lymphocytes/100 WBC (Bld) 20.7 % Normal 20.5-60.0 [facility] Comment on above: Performed By: #### C BC #### [facility] [address] [place] [address] Dr. Yarely Roe MANUAL DIFF REQ NO Normal [facility] Comment on above: Performed By: #### C BC #### [facility] [address] [place] [address] Dr. Yarely Roe MCH (RBC) [Entitic mass] 31.9 pg Normal 26.7-34.0 [facility] Comment on above: Performed By: #### C BC #### [facility] [address] [place] [address] [address] Yarely Roe MCHC (RBC) [Mass/Vol] 32.6 g/dL Normal 29.9-35.2 [facility] Comment on above: Performed By: #### C BC #### [facility] [address] [place] [address] [address] Yarely Roe MCV (RBC) [Entitic vol] 97.7 fL Normal 81.0-99.0 [facility] Comment on above: Performed By: #### C BC #### [facility] [address] [place] [address] [address] Yarely Roe MONO # 0.5 103/ul Normal 0.3-0.8 [facility] Comment on above: Performed By: #### C BC #### [facility] [address] [place] [address] Dr. Yarely Roe Monocytes/100 WBC (Bld) 5.9 % Normal 1.7-12.0 [facility] Comment on above: Performed By: #### C BC #### [facility] [address] [place] [address] Dr. Yarely Roe NEUT # 5.7 103/ul Normal 1.4-6.5 [facility] Comment on above: Performed By: #### C BC #### [facility] [address] [place] [address] Dr. Yarely Roe Neutrophils/100 WBC (Bld) 70.3 % Normal 43.0-75.0 [facility] Comment on above: Performed By: #### C BC #### [facility] [address] [place] [address] Dr. Yarely Roe Platelet mean volume (Bld) [Entitic vol] 11.0 fL Normal 9.5-13.5 [facility] Comment on above: Performed By: #### C BC #### [facility] [address] [place] [address] Dr. Yarely Roe PLT 196 103/ul Normal 150-450 [facility] Comment on above: Performed By: #### C BC #### [facility] [address] [place] [address] [address] Yarely Roe RBC 4.30 106/ul Normal 4.20-5.40 [facility] Comment on above: Performed By: #### C BC #### [facility] [address] [place] [address] Dr. Yarely Roe WBC 8.1 103/ul Normal 4.0-11.0 [facility] Comment on above: Performed By: #### C BC #### [facility] [address] [place] [address] Dr. Yarely Roe GLYCOHEMOGLOBIN A1Con 2021 ADA RECOMMENDATION SEE BELOW Normal [facility] Comment on above: Result Comment: ADA RECOMMENDED LIMIT 4.0 - 6.0 ADA THERAPEUTIC TARGET < 7.0 ACTION SUGGESTED > 7.0 Performed By: #### A 1C #### [facility] [address] [place] [address] Dr. Yarely Roe Glucose [Mass/Vol] 223 mg/dL Normal [facility] Comment on above: Performed By: #### A 1C #### [facility] [address] [place] [address] Dr. Yarely Roe HbA1c (Bld) [Mass fraction] 9.4 % Critically high 4.5-6.2 [facility] Comment on above: Performed By: #### A 1C #### [facility] [address] [place] [address] Dr. Yarely Roe PROF CHEM 8 (BAS METB)on Anion gap [Moles/Vol] 13.4 mmol/L Normal [facility] Comment on above: Performed By: #### B MP #### [facility] [address] [place] [address] Dr. Yarely Roe Calcium [Mass/Vol] 9.5 mg/dL Normal 8.5-10.1 [facility] Comment on above: Performed By: #### B MP #### [facility] [address] [place] [address] Dr. Yarely Roe Chloride [Moles/Vol] 101 mmol/L Normal 98-107 [facility] Comment on above: Performed By: #### B MP #### [facility] [address] [place] [address] [address] Yarely Roe CO2 [Moles/Vol] 28.6 mmol/L Normal 21.0-32.0 [facility] Comment on above: Performed By: #### B MP #### [facility] [address] [place] [address] [address] Yarely Roe Creatinine [Mass/Vol] 1.46 mg/dL Critically high 0.55-1.02 [facility] Comment on above: Performed By: #### B MP #### [facility] [address] [place] [address] [address] Yarely Roe EGFR-AF MACANESE 42 mL/min/1.73m2 Critically low >=60 [facility] Comment on above: Performed By: #### B MP #### [facility] [address] [place] [address] [address] Yarely Roe EGFR-NON AF MACANESE 35 mL/min/1.73m2 Critically low >=60 [facility] Comment on above: Performed By: #### B MP #### [facility] [address] [place] [address] [address] Yarely Roe Glucose [Mass/Vol] 288 mg/dL Critically high 74-106 [facility] Comment on above: Performed By: #### B MP #### [facility] [address] [place] [address] [address] Yarely Roe Potassium [Moles/Vol] 4.0 mmol/L Normal 3.5-5.1 [facility] Comment on above: Performed By: #### B MP #### [facility] [address] [place] [address] [address] Yarely Roe Sodium [Moles/Vol] 139 mmol/L Normal 136-145 [facility] Comment on above: Performed By: #### B MP #### [facility] [address] [place] [address] [address] Yarely Roe Urea nitrogen [Mass/Vol] 27.0 mg/dL Critically high 7.0-18.0 [facility] Comment on above: Performed By: #### B MP #### [facility] [address] [place] [address] [address] Yarely Roe Urea nitrogen/Creatinin e [Mass ratio] 18.5 mg/mg Normal [facility] Comment on above: Performed By: #### B MP #### [facility] [address] [place] [address] [address] Yarely Roe PROF CHEM 8 (BAS METB)on Anion gap [Moles/Vol] 11.9 mmol/L Normal [facility] Comment on above: Performed By: #### B MP #### [facility] [address] [place] [address] [address] Yarely Roe Calcium [Mass/Vol] 9.1 mg/dL Normal 8.5-10.1 [facility] Comment on above: Performed By: #### B MP #### [facility] [address] [place] [address] Dr. Yarely Roe Chloride [Moles/Vol] 100 mmol/L Normal 98-107 [facility] Comment on above: Performed By: #### B MP #### [facility] [address] [place] [address] [address] Yarely Roe CO2 [Moles/Vol] 30.8 mmol/L Normal 21.0-32.0 [facility] Comment on above: Performed By: #### B MP #### [facility] [address] [place] [address] [address] Yarely Roe Creatinine [Mass/Vol] 1.27 mg/dL Critically high 0.55-1.02 [facility] Comment on above: Performed By: #### B MP #### [facility] [address] [place] [address] [address] Yarely Roe EGFR-AF MACANESE 50 mL/min/1.73m2 Critically low >=60 [facility] Comment on above: Performed By: #### B MP #### [facility] [address] [place] [address] [address] Yarely Roe EGFR-NON AF MACANESE 41 mL/min/1.73m2 Critically low >=60 [facility] Comment on above: Performed By: #### B MP #### [facility] [address] [place], [place] [address] Dr. Yarely Roe Glucose [Mass/Vol] 166 mg/dL Critically high 74-106 [facility] Comment on above: Performed By: #### B MP #### [facility] [address] [place], [place] [address] Dr. Yarely Roe Potassium [Moles/Vol] 3.7 mmol/L Normal 3.5-5.1 [facility] Comment on above: Performed By: #### B MP #### [facility] [address] [place] [address] [address] Yarely Roe Sodium [Moles/Vol] 139 mmol/L Normal 136-145 [facility] Comment on above: Performed By: #### B MP #### [facility] [address] [place] [address] [address] Yarely Roe Urea nitrogen [Mass/Vol] 20.0 mg/dL Critically high 7.0-18.0 [facility] Comment on above: Performed By: #### B MP #### [facility] [address] [place], [place] [address] Dr. Yarely Roe Urea nitrogen/Creatinin e [Mass ratio] 15.7 mg/mg Normal [facility] Comment on above: Performed By: #### B MP #### [facility] [address] [place] [address] [address] Yarely Roe Office Visit (Cardiology)on 11-02-2021 Follow-up visit Diagnoses/Problems Assessed Hyperlipidemia (272.4) (E78.5) Ischemic cardiomyopathy (414.8) (I25.5) HTN (hypertension) (401.9) (I10) History of [place] (myocardial infarction) (412) (I25.2) CAD, multiple vessel [...] Metabolic Panel; Status:Active - Retrospective Authorization; Requested for:[id number]; CAD, multiple vessel, Hyperlipidemia Renew: Rosuvastatin Calcium [...] Instructions By signing my name below, I, Tristan Jurado LPNibben, attest that this documentation has been prepared [...] 2:24:53 PM (more content not included)... Normal [employer] Tobacco Screening.on 022 Adult depression screening assessment No -[facility] 250 DO Work Phone: Fall risk assessment a) No falls within the last year [facility] [employer] 250 DO Work Phone: Tobacco use status CPHS b) No [facility] [employer] 250 DO Work Phone: XR LSPINE MIN 4 VIEWSon 04-0 XR LSPINE MIN 4 VIEWS EXAMINATION: XR [...] Vascular calcifications. Right pelvic vascular stent. IMPRESSION: Qbvy-mn-[id number] degenerative changes with minimal anterolisthesis of L4 and L5 Electronically authenticated by: ALISSA RAMIREZ Date: 2021-10-16 07:05 Normal [facility] CBC AUTO DIFFon 10-15-2021 BASO # 0.0 103/ul Normal 0.0-0.1 [facility] Comment on above: Performed By: #### C BC #### [facility] [address] [place] [address] Dr. Yarely Roe Basophils/100 WBC (Bld) 0.3 % Normal 0.2-2.0 [facility] Comment on above: Performed By: #### C BC #### [facility] [address] [place] [address] [address] Yarely Roe EO # 0.3 103/ul Normal 0.0-0.7 [facility] Comment on above: Performed By: #### C BC #### [facility] [address] [place] [address] [address] Yarely Roe Eosinophils/100 WBC (Bld) 3.4 % Normal 0.9-7.0 [facility] Comment on above: Performed By: #### C BC #### [facility] [address] [place] [address] Dr. Yarely Roe Erythrocyte distribution width (RBC) [Ratio] 15.1 % Critically high 11.0-15.0 [facility] Comment on above: Performed By: #### C BC #### [facility] [address] [place] [address] Dr. Yarely Roe Hematocrit (Bld) [Volume fraction] 42.1 % Normal 36.0-48.0 [facility] Comment on above: Performed By: #### C BC #### [facility] [address] [place] [address] Dr. Yarely Roe Hemoglobin (Bld) [Mass/Vol] 13.5 g/dL Normal 12.0-16.0 [facility] Comment on above: Performed By: #### C BC #### [facility] [address] [place] [address] Dr. Yarely Roe IG # 0.04 10e3/ul Critically high 0.00-0.03 [facility] Comment on above: Performed By: #### C BC #### [facility] [address] [place] [address] Dr. Yarely Roe IG % 0.4 % Normal 0.0-0.5 [facility] Comment on above: Performed By: #### C BC #### [facility] [address] [place] [address] Dr. Yarely Roe LYMPH # 2.1 103/ul Normal 1.2-3.8 [facility] Comment on above: Performed By: #### C BC #### [facility] [address] [place] [address] Dr. Yarely Roe Lymphocytes/100 WBC (Bld) 22.9 % Normal 20.5-60.0 [facility] Comment on above: Performed By: #### C BC #### [facility] [address] [place] [address] Dr. Yarely Roe MANUAL DIFF REQ NO Normal [facility] Comment on above: Performed By: #### C BC #### [facility] [address] [place] [address] Dr. Yarely Roe MCH (RBC) [Entitic mass] 31.5 pg Normal 26.7-34.0 [facility] Comment on above: Performed By: #### C BC #### [facility] [address] [place] [address] [address] Yarely Roe MCHC (RBC) [Mass/Vol] 32.1 g/dL Normal 29.9-35.2 [facility] Comment on above: Performed By: #### C BC #### [facility] [address] [place] [address] [address] Yarely Roe MCV (RBC) [Entitic vol] 98.1 fL Normal 81.0-99.0 [facility] Comment on above: Performed By: #### C BC #### [facility] [address] [place] [address] [address] Yarely Roe MONO # 0.6 103/ul Normal 0.3-0.8 [facility] Comment on above: Performed By: #### C BC #### [facility] [address] [place] [address] Dr. Yarely Roe Monocytes/100 WBC (Bld) 6.1 % Normal 1.7-12.0 [facility] Comment on above: Performed By: #### C BC #### [facility] [address] [place] [address] Dr. Yarely Roe NEUT # 6.2 103/ul Normal 1.4-6.5 [facility] Comment on above: Performed By: #### C BC #### [facility] [address] [place] [address] [address] Yarely Roe Neutrophils/100 WBC (Bld) 66.9 % Normal 43.0-75.0 [facility] Comment on above: Performed By: #### C BC #### [facility] [address] [place] [address] [address] Yarely Roe Platelet mean volume (Bld) [Entitic vol] 10.9 fL Normal 9.5-13.5 [facility] Comment on above: Performed By: #### C BC #### [facility] [address] [place] [address] [address] Yarely Roe PLT 220 103/ul Normal 150-450 [facility] Comment on above: Performed By: #### C BC #### [facility] [address] [place] [address] Dr. Yarely Roe RBC 4.29 106/ul Normal 4.20-5.40 [facility] Comment on above: Performed By: #### C BC #### [facility] [address] [place] [address] Dr. Yarely Roe WBC 9.2 103/ul Normal 4.0-11.0 [facility] Comment on above: Performed By: #### C BC #### [facility] [address] [place] [address] Dr. Yarely Roe GLYCOHEMOGLOBIN A1Con 2021 ADA RECOMMENDATION ADA THERAPEUTIC TARGET 6.0 - 7.0 ACTION SUGGESTED > 7.0 Normal [facility] [facility] Comment on above: Performed By: #### A 1C #### [facility] [address] [place] [address] Dr. Yarely Roe Glucose [Mass/Vol] 183 mg/dL Normal [facility] Comment on above: Performed By: #### A 1C #### [facility] [address] [place] [address] Dr. Yarely Roe HbA1c (Bld) [Mass fraction] 8.0 % Critically high <=6.0 [facility] Comment on above: Performed By: #### A 1C #### [facility] [address] [place] [address] Dr. Yarely Roe PROF 14(COMP METB)on 022 Albumin [Mass/Vol] 3.4 g/dL Normal 3.4-5.0 [facility] Comment on above: Performed By: #### C MP #### [facility] [address] [place] [address] Dr. Yarely Roe Albumin/Globulin [Mass ratio] 0.8 {ratio} Normal [facility] Comment on above: Performed By: #### C MP #### [facility] [address] [place] [address] Dr. Yarely Roe ALP [Catalytic activity/Vol] 59 U/L Normal 46-116 [facility] Comment on above: Performed By: #### C MP #### [facility] [address] [address] [address] Yarely Roe ALT [Catalytic activity/Vol] 9 U/L Critically low 14-59 [facility] Comment on above: Performed By: #### C MP #### [facility] [address] [place] [address] Dr. Yarely Roe Anion gap [Moles/Vol] 11.3 mmol/L Normal [facility] Comment on above: Performed By: #### C MP #### [facility] [address] [address] [address] Yarely Roe AST [Catalytic activity/Vol] 15 U/L Normal 15-37 [facility] Comment on above: Performed By: #### C MP #### [facility] [address] [place] [address] Dr. Yarely Roe Bilirubin [Mass/Vol] 0.3 mg/dL Normal 0.2-1.3 [facility] Comment on above: Performed By: #### C MP #### [facility] [address] [place] [address] Dr. Yarely Roe Calcium [Mass/Vol] 9.4 mg/dL Normal 8.5-10.1 [facility] Comment on above: Performed By: #### C MP #### [facility] [address] [place] [address] Dr. Yarely Roe Chloride [Moles/Vol] 97 mmol/L Critically low 98-107 [facility] Comment on above: Performed By: #### C MP #### [facility] [address] [place] [address] Dr. Yarely Roe CO2 [Moles/Vol] 33.0 mmol/L Critically high 22.0-30.0 [facility] Comment on above: Performed By: #### C MP #### [facility] [address] [place] [address] Dr. Yarely Roe Creatinine [Mass/Vol] 1.40 mg/dL Critically high 0.52-1.04 [facility] Comment on above: Performed By: #### C MP #### [facility] [address] [place] [address] Dr. Yarely Roe EGFR-AF MACANESE 44 mL/min/1.73m2 Critically low >=60 [facility] Comment on above: Performed By: #### C MP #### [facility] [address] [address] [address] Yarely Roe EGFR-NON AF MACANESE 37 mL/min/1.73m2 Critically low >=60 [facility] Comment on above: Performed By: #### C MP #### [facility] [address] [address] [address] Yarely Roe Globulin (S) [Mass/Vol] 4.3 g/dL Normal [facility] Comment on above: Performed By: #### C MP #### [facility] [address] [address] [address] Yarely Roe Glucose [Mass/Vol] 224 mg/dL Critically high 74-106 [facility] Comment on above: Performed By: #### C MP #### [facility] [address] [address] [address] Yarely Roe Potassium [Moles/Vol] 3.3 mmol/L Critically low 3.4-5.0 [facility] Comment on above: Performed By: #### C MP #### [facility] [address] [place] [address] Dr. Yarely Roe Protein [Mass/Vol] 7.7 g/dL Normal 6.1-8.2 [facility] Comment on above: Performed By: #### C MP #### [facility] [address] [address] [address] Yarely Roe Sodium [Moles/Vol] 138 mmol/L Normal 137-145 [facility] Comment on above: Performed By: #### C MP #### [facility] [address] [address] [address] Yarely Roe Urea nitrogen [Mass/Vol] 27.0 mg/dL Critically high 7.0-18.0 [facility] Comment on above: Performed By: #### C MP #### [facility] [address] [place] [address] Dr. Yarely Roe Urea nitrogen/Creatinin e [Mass ratio] 19.3 mg/mg Normal [facility] Comment on above: Performed By: #### C #### [facility] [address] [address] [address] Yarely Roe [facility] Carotid Artery Dupl ex Ultrasounon 05-08-2020 VAS LAB Carotid Artery Duplex Ultrasoun [address], [address], [place] [address] Vascular Lab Report Carotid Artery Duplex Ultrasound Patient Name: LEXI CASTILLO Reading Physician: [id number] Charlotte Cordon MD, [facility] Study Date: 05/08/2020 Referring Physician: [id number] Tom Ruano MD MRN/PID: [id number] PCP: Li Lee Accession/Order#: [id number] CC Report to: Date of : 1945 Technologist: Surekha Hartley RD, T Gender: F Technologist 2: Admission Status: Outpatient Location Performed: [facility] Diagnosis/ICD: R09.89-Other specified symptoms and signs involving the circulatory and respiratory systems Indication: Diabetes, Hyperlipidemia, Former Smoker, Vertigo, CAD, CABG, Ischemic Cardiomyopathy, PTCA, [place], Obesity Procedure/CPT: 67557 Cerebrovascular Carotid Duplex scan complete-[id number] CONCLUSIONS: Right Carotid: Findings are consistent with [...] cm/s Right Left ICA/CCA Ratio 2.2 0.9 [id number] Charlotte Cordon MD, FACC Final Normal [facility] HEMOGLOBIN A1Con 06-17-2019 HbA1c (Bld) [Mass fraction] 7.5 % Normal [facility] Comment on above: Result Comment: Diag nosis of Diabetes-Adults Non-Diabetic: < or = 5.6% Increased risk for developing diabetes: 5.7-6.4% Diagnostic of diabetes: > or = 6.5% . Monitoring of Diabetes Age (y) Therapeutic Goal (%) Adults: >18 <7.0 Pediatrics: 13-18 <7.5 7-12 <8.0 0- 6 7.5-8.5 [employer]. Diabetes Care 33(S1), Jul 2009. Performed By: #### H BA1E #### [facility] [address] [place] [address] HbA1c (Bld) [Mass fraction] 169 MG/DL Normal [facility] Comment on above: Performed By: #### H BA1E #### [facility] [address] [place] [address] Anthony 06-16-2019 AST [Catalytic activity/Vol] 18 U/L Normal 9 - 39 [facility] Comment on above: Order Comment: Patiben nt states she had black coffee this a.m. Performed By: #### A ST #### [address] [address] COMPREHENSIVE PANELon 2018 Albumin [Mass/Vol] 4.1 g/dL Normal 3.4 - 5.0 [facility] Comment on above: Performed By: #### C MP #### [address] [address] ALP [Catalytic activity/Vol] 62 U/L Normal 33 - 136 [facility] Comment on above: Performed By: #### C MP #### [address] [address] ALT [Catalytic activity/Vol] 12 U/L Normal 7 - 45 [facility] Comment on above: Result Comment: Yareli ents treated with Sulfasalazine may generate falsely decreased results for ALT. Performed By: #### C MP #### [address] [address] Anion gap [Moles/Vol] 13 mmol/L Normal 10 - 20 [facility] Comment on above: Performed By: #### C MP #### [address] [address] AST [Catalytic activity/Vol] 16 U/L Normal 9 - 39 [facility] Comment on above: Performed By: #### C MP #### [address] [address] Bilirubin [Mass/Vol] 0.5 mg/dL Normal 0.0 - 1.2 [facility] Comment on above: Performed By: #### C MP #### [address] [address] Calcium [Mass/Vol] 9.8 mg/dL Normal 8.6 - 10.3 [facility] Comment on above: Performed By: #### C MP #### [address] [address] Chloride [Moles/Vol] 103 mmol/L Normal 98 - 107 [facility] Comment on above: Performed By: #### C MP #### [address] [address] Creatinine [Mass/Vol] 1.32 mg/dL High 0.50 - 1.05 [facility] Comment on above: Performed By: #### C MP #### [address] [address] GFR- AM. 47 mL/min/1.73m2 Abnormal >60 [facility] Comment on above: Result Comment: CALC ULATIONS OF ESTIMATED GFR ARE PERFORMED USING THE MDRD STUDY EQUATION FOR THE IDMS-TRACEABLE CREATININE METHODS. CLIN CHEM 2007;53:766-72 Performed By: #### C MP #### [address] [address] GFR-NON AM. 39 mL/min/1.73m2 Abnormal >60 [facility] Comment on above: Performed By: #### C MP #### [address] [address] Glucose [Mass/Vol] 115 mg/dL High 74 - 99 [facility] Comment on above: Performed By: #### C MP #### [address] [address] HCO3 (Bld) [Moles/Vol] 25 mmol/L Normal 21 - 32 [facility] Comment on above: Performed By: #### C MP #### [address] [address] Potassium [Moles/Vol] 5.4 mmol/L High 3.5 - 5.3 [facility] Comment on above: Performed By: #### C MP #### [address] [address] Protein [Mass/Vol] 7.5 g/dL Normal 6.4 - 8.2 [facility] Comment on above: Performed By: #### C MP #### [address] [address] Sodium [Moles/Vol] 136 mmol/L Normal 136 - 145 [facility] Comment on above: Performed By: #### C MP #### [address] [address] Urea nitrogen [Mass/Vol] 40 mg/dL High 6 - 23 [facility] Comment on above: Performed By: #### C MP #### [address] [address] LIPID PANEL (CORONARY RISK 2 )on 06-16-2019 Cholesterol [Mass/Vol] 182 mg/dL Normal 0 - 199 [facility] Comment on above: Order Comment: Desean hernandez [...] dosing. Performed By: #### L IPID #### [address] [address] Cholesterol in HDL [Mass/Vol] 39.0 mg/dL Abnormal [facility] Comment on above: Order Comment: Desean hernandez states she had black coffee this a.m. Result Comment: . AGE VERY LOW LOW NORMAL HIGH 0-19 Y < 35 < 40 40-45 ---- 20-24 Y ---- < 40 >45 ---- >24 Y ---- < 40 40-60 >60 . Performed By: #### L IPID #### [address] [address] Cholesterol in LDL [Mass/Vol] 92 mg/dL Normal 0 - 99 [facility] Comment on above: Order Comment: Desean hernandez states she had black coffee this a.m. Result Comment: . NEAR BORD AGE DESIRABLE OPTIMAL HIGH HIGH VERY HIGH 0-19 Y 0 - 109 --- 110-129 >/= 130 ---- 20-24 Y 0 - 119 --- 120-159 >/= 160 ---- >24 Y 0 - 99 100-129 130-159 160-189 >/=190 . Performed By: #### L IPID #### [address] [address] Cholesterol in VLDL [Mass/Vol] 51 mg/dL High 0 - 40 [facility] Comment on above: Order Comment: Desean hernandez states she had black coffee this a.m. Performed By: #### L IPID #### [address] [address] Cholesterol.total/ Cholesterol in HDL [Mass ratio] 4.7 {ratio} Normal [facility] Comment on above: Order Comment: Desean hernandez states she had black coffee this a.m. Result Comment: REF VALUES DESIRABLE < 3.4 HIGH RISK > 5.0 Performed By: #### L IPID #### [address] [address] NON-HDL CHOLESTEROL 143 mg/dL Normal [facility] Comment on above: Order Comment: Desean hernandez states she had black coffee this a.m. Result Comment: AGE DESIRABLE BORDERLINE HIGH HIGH VERY HIGH 0-19 Y 0 - 119 120 - 144 >/= 145 >/= 160 20-24 Y 0 - 149 150 - 189 >/= 190 ---- >24 Y 30 MG/DL ABOVE LDL CHOLESTEROL GOAL . Performed By: #### L IPID #### [address] [address] Triglyceride [Mass/Vol] 255 mg/dL High 0 - 149 [facility] Comment on above: Order Comment: Desean hernandez [...] dosing. Performed By: #### L IPID #### [address] [address] Vital Signs Date Time Vital Sign Value Performing Clinician Facility 10-14-2023 13:33-0400 Diastolic blood pressure 68 mm[Hg] Margie 1 [facility] 10-14-2023 13:33-0400 Heart rate 78 /min Margie 1 [facility] 10-14-2023 13:33-0400 Systolic blood pressure 108 mm[Hg] Margie 1 [facility] 09-17-2023 13:07-0500 Body height 149.9 cm Tom Ruano MD Work Phone: [facility] 09-17-2023 13:07-0500 Body mass index (BMI) [Ratio] 33.33 kg/m2 Tom Ruano MD Work Phone: [facility] 09-17-2023 13:07-0500 Body weight 74.84 kg Tom Ruano MD Work Phone: [facility] 09-17-2023 13:07-0500 Diastolic blood pressure 70 mm[Hg] Tom Ruano MD Work Phone: [facility] 09-17-2023 13:07-0500 Heart rate 84 /min Tom Ruano MD Work Phone: [facility] 09-17-2023 13:07-0500 Systolic blood pressure 116 mm[Hg] Tom Ruano MD Work Phone: [facility] 09-09-2023 15:18-0500 Body height 149.86 cm [facility] 09-09-2023 15:18-0500 Body mass index (BMI) [Ratio] 33.3 kg/m2 [facility] 09-09-2023 15:18-0500 Body weight 74.84 kg [facility] 09-09-2023 15:18-0500 Diastolic blood pressure 74 mm[Hg] [facility] 09-09-2023 15:18-0500 Heart rate 86 /min [facility] 09-09-2023 15:18-0500 Systolic blood pressure 117 mm[Hg] [facility] 08-13-2023 13:00-0500 Body height Da Lozano II Other [employer] Other 08-13-2023 13:00-0500 Body height 149.86 cm [facility] 11-12-2022 15:30-0400 Body height Ross Colmenares Other [employer] Other 11-12-2022 15:30-0400 Body mass index (BMI) [Ratio] 33.32 kg/m2 Ross Colmenares Other [employer] Other 11-12-2022 15:30-0400 Body weight 74.84 kg Ross Colmenares Other [employer] Other 07-25-2022 15:55-0500 Body height 149.86 cm Li Lee Work Phone: [facility]Hhqwcpqjmv-Kwkyucv y 250 DO Work Phone: 07-25-2022 15:55-0500 Body mass index (BMI) [Ratio] 34.94 kg/m2 Li Lee Work Phone: [facility]Canwonaigj-Bdvuhow y 250 DO Work Phone: 07-25-2022 15:55-0500 Body surface area Derived from formula 1.73 m2 Li Lee Work Phone: MJ-Velqqfyxdw-Nfrkutw y 250 DO Work Phone: 07-25-2022 15:55-0500 Body weight 78.47 kg Li Lee Work Phone: RL-Hvxcobrbhq-Qqperca y 250 DO Work Phone: 07-25-2022 15:55-0500 Diastolic blood pressure 80 mm[Hg] Li Lee Work Phone: UJ-Osndnxicfw-Utaskxj y 250 DO Work Phone: 07-25-2022 15:55-0500 Heart rate 66 /min Li Lee Work Phone: TC-Dtzglpvrzz-Dqonywr y 250 DO Work Phone: 07-25-2022 15:55-0500 Systolic blood pressure 120 mm[Hg] Li Lee Work Phone: PH-Kubnklgaua-Bjlveck y 250 DO Work Phone: 11-02-2021 13:16-0400 Body height 149.86 cm Li Lee Work Phone: [facility] 250 DO Work Phone: 11-02-2021 13:16-0400 Body mass index (BMI) [Ratio] 34.54 kg/m2 Li Lee Work Phone: [facility] 250 DO Work Phone: 11-02-2021 13:16-0400 Body surface area Derived from formula 1.73 m2 Li Lee Work Phone: [facility] 250 DO Work Phone: 11-02-2021 13:16-0400 Body weight 77.57 kg Li Lee Work Phone: [facility] 250 DO Work Phone: 11-02-2021 13:16-0400 Diastolic blood pressure 80 mm[Hg] Li Lee Work Phone: [facility] 250 DO Work Phone: 11-02-2021 13:16-0400 Heart rate 66 /min Li Lee Work Phone: [facility] 250 DO Work Phone: 11-02-2021 13:16-0400 Systolic blood pressure 130 mm[Hg] Li Lee Work Phone: [facility] 250 DO Work Phone: Encounters Encounter Date Encounter Type Care Provider Facility Start: 11-19-2023 End: 11-20-2023 ambulatory Maxnie L Shraddha Facility: [facility] Start: 10-23-2023 End: 10-23-2023 ambulatory [facility] Work Phone: Start: 10-23-2023 End: 10-23-2023 Patient encounter procedure [facility] Physician [facility] Work Phone: Start: 10-14-2023 End: 10-15-2023 ambulatory [facility] Start: 10-14-2023 End: 10-14-2023 Subsequent hospital visit by physician Margie Messina [facility] Comment on above: CAD, multiple vessel ; S/P CABG x 3; Ischemic cardiomyopathy; Occlusion and stenosis of right carotid artery; Shortness of breath Start: 09-17-2023 ambulatory Maxine L Shraddha Facility: [facility] Start: 09-17-2023 End: 09-17-2023 ambulatory [facility] Start: 09-17-2023 End: 09-17-2023 Patient encounter procedure [facility] Work Phone: Start: 09-17-2023 End: 09-17-2023 Office outpatient visit 25 minutes Tom Ruano MD Work Phone: [facility] Comment on above: CAD, multiple vessel (Primary Dx); S/P CABG x 3; History of angioplasty; Primary hypertension; Ischemic cardiomyopathy; Mixed hyperlipidemia; BMI 32.0-32.9,adult; Former smoker; Occlusion and stenosis of right carotid artery; Shortness of breath Start: 09-09-2023 End: 09-09-2023 Patient encounter procedure [facility] Physician [facility] Work Phone: Start: 09-08-2023 End: 09-09-2023 ambulatory Maxine L Shraddha Facility:[facility]a martines Start: 08-20-2023 End: 08-21-2023 ambulatory Maxine L Shraddha [facility] Start: 08-13-2023 End: 08-13-2023 ambulatory Da Sabine II Other [employer] Other Start: 08-13-2023 Office outpatient vi sit 15 minutes Da Sabine II [facility] Start: 08-13-2023 End: 08-13-2023 Patient encounter procedure [facility]- Start: 05-21-2023 End: 05-22-2023 ambulatory Maxine L Shraddha Facility[facility] Start: 04-23-2023 (Procedure) Raine Colmenares [facility] Start: 04-23-2023 End: 04-23-2023 ambulatory Ross Fadiatyler Other [employer] Other Start: 04-07-2023 End: 04-07-2023 ambulatory Ross Colmenares Other [employer] Other Start: 04-07-2023 Telephone encounter Ross Colmenares [facility] Start: 03-27-2023 End: 03-27-2023 ambulatory Da Sabine II Other [employer] Other Start: 03-27-2023 Office outpatient vi sit 15 minutes Da Blake II [facility] Start: 03-25-2023 ambulatory Maxine L Shraddha Facility: [facility] [place] Start: 03-05-2023 End: 03-06-2023 ambulatory Maxine L Shraddha Facility:[facility] [place] Start: 02-10-2023 End: 02-11-2023 ambulatory Maxine L Shraddha Facility[facility] Start: 02-10-2023 End: 02-10-2023 Lab Drop off Maxine L Shraddha [facility] Start: 02-05-2023 ambulatory Maxine L Shraddha Facility: [facility] [place] Start: 12-25-2022 (Procedure) Raine Colmenares [facility] Start: 12-25-2022 End: 12-25-2022 ambulatory Ross Colmenares Other [employer] [facility] [place] [facility] Other Start: 12-04-2022 End: 12-04-2022 ambulatory Da Lozano II Facility:[facility] Start: 11-12-2022 End: 11-12-2022 ambulatory Ross Darrian Other [facility] [place] [employer] Other Start: 11-12-2022 Office outpatient ne w 45 minutes Ross Colmenares [facility] Start: 11-11-2022 End: 11-11-2022 ambulatory Ross Fadiatyler Facility:[facility] Start: 11-11-2022 End: 11-11-2022 ambulatory MD Li Lee Work Phone: [facility] Work Phone: Start: 11-11-2022 End: 11-11-2022 Patient encounter procedure MD Li Lee Work Phone: [facility] [place] [facility] Start: 10-09-2022 Rx Renewal Li Lee Work Phone: -[facility] 250 DO Work Phone: Start: 07-25-2022 Office outpatient vi sit 25 minutes Li Lee Work Phone: [facility]hgxlu[facility] 250 DO Work Phone: Start: 07-25-2022 ambulatory Tom Ruano II Facility: Start: 07-10-2022 Rx Renewal Li Lee Work Phone: [facility] 250 DO Work Phone: Start: 01-30-2022 End: 01-31-[address] LI LEE Facility:[facility] Start: 12-19-2021 Encounter for genera l adult medical examination without abnormal findings DR TOM RUANO [facility] Start: 12-13-2021 End: 12-14-[address] LI LEE Facility:[facility] Start: 12-13-2021 End: 12-14-2021 Encounter for general adult medical examination without abnormal findings DR LI LEE Facility:[facility] Start: 11-02-2021 Office outpatient vi sit 25 minutes Li Lee Work Phone: [facility] 250 DO Work Phone: Start: 11-02-[address] LI LEE Facilit y:[facility] Start: 10-18-2021 End: 01-19-[address] LI LEE Facility:[facility] Start: 10-15-2021 End: 10-16-[address] LI LEE Facility:[facility] Start: 10-11-2021 Rx Renewal Li Lee Work Phone: [facility] 250 DO Work Phone: Start: 09-10-2021 Rx Renewal Li Lee Work Phone: [facility] 250 DO Work Phone: Start: 08-03-2021 AUDIT Li Lee Work Phone: [facility] 250 DO Work Phone: Start: 11-20-2017 Ambulatory BLAKE BOYLE Facility :[id number] Start: 09-04-2017 Ambulatory BLAKETALIA KUO Facility :1532 Start: 04-07-2017 End: 04-08-2017 Ambulatory DEFAULT PHYSICIAN Facility:[facility] Patient encounter status Li Lee Work Phone: [facility] 250 DO Work Phone: Procedures Date Procedure Procedure Detail Performing Clinician Start: 10-14-2023 NUCLEAR STRESS TEST MARCELA RUANO Start: 10-14-2023 Cv strs tst xers&/or rx cont ecg trcg only Tom Ruano MD Work Phone: Start: 07-08-2023 History of coronary artery bypass grafting S/P CABG x 3 Tom Ruano MD Work Phone: Start: 06-16-2019 Lipid 1996 panel - S pal[place] or Plasma Tom Ruano MD Work Phone: [facility] vas cular bypass Li Lee Work [...] History of coronary artery bypass grafting Maxine Llanes History of coronary artery bypass grafting S/P CABG x 3 Tom Ruano MD Work Phone: History of coronary artery bypass grafting S/P CABG x 3 Margie 1 Plan of Treatment Date Care Activity Detail Author Start: 06-09-2024 End: 06-09-2024 Patient encounter procedure 06/09/2024 11:30 AM EST Office Visit [facility] [address] [place] [address] Jeimy Braun, STATION SUPERVISOR-[employer] JUDGING [employer] [address] [place] [address] [facility] Start: 03-14-2024 Influenza vaccination Influenz a Vaccine (Season Ended) [facility] Start: 09-17-2023 End: 09-16-2025 NM Heart Perfusion W stress and W radionuclide IV Nuclear Stress Test Cardiac Nuclear Medicine Routine CAD, multiple vessel S/P CABG x 3 Ischemic cardiomyopathy Occlusion and stenosis of right carotid artery Shortness of breath Expected: 09/17/2023 (Approximate), Expires: 09/16/2025 [facility] Service Area Work Phone: Comment on above: Expected: 09/17/2023 (Approximate), Expires: 09/16/2025 Start: 01-10-2024 FUV, Provider: Tom Ruano, Status: Pen, Time: 3:40 PM FUV, Provider: Tom Ruano, Status: Pen, Time: 3:40 PM TH-Pwhkocbqhb-Dcgnpb ky 250 DO Work Phone: Start: 07-19-2023 Glaucoma screening Diabetes: R etinopathy Screening [facility] Start: 03-14-2023 COVID-19 Vaccine () COVID-19 Vaccine () [facility] Start: 03-14-2023 Influenza vaccination Influenza Vacc ine (#1) [facility] Start: 11-11-2022 X-ray of lumbar spin e, four views XR lumbar spine AP/LAT/FLX/EXT [facility] Start: 11-11-2022 Plain X-ray of left hip XR hip LT min 2V(w/wo pelvis)* [facility] Start: 11-11-2022 XR Hip - left 2 Views F [facility] Start: 07-25-2022 FUV, Provider: Tom Ruano, Status: Pen, Time: 3:30 PM FUV, Provider: Tom Ruano, Status: Pen, Time: 3:30 PM -[facility] 250 DO Work Phone: Start: 04-19-2022 FUV, Provider: Tom Ruano, Status: Pen, Time: 3:20 PM FUV, Provider: Tom Ruano, Status: Pen, Time: 3:20 PM -[facility] 250 DO Work Phone: Start: 11-02-2021 FUV, Provider: Tom Ruano, Status: Pen, Time: 1:15 PM FUV, Provider: Tom Ruano, Status: Pen, Time: 1:15 PM [facility] 250 DO Work Phone: Start: 06-16-2020 Lipid panel Lipid Panel [facility] Start: 09-15-2019 Hemoglobin A1c measurement Diabetes: Hemoglobin A1C [facility] Start: 1995 Zoster Vaccines (1 o f 2) Zoster Vaccines (1 of 2) [facility] Start: 1967 DTaP/Tdap/Td Vaccine s (1 - Tdap) DTaP/Tdap/Td Vaccines (1 - Tdap) [facility] Start: 1964 Urine screening for protein Diabetes: Urine Protein Screening [facility] Start: 1963 Hepatitis C screening Hepatitis C Sc reening [facility] Start: 1955 Diabetic foot examination Diabetes: Foot Exam [facility] Start: 1945 Medicare Annual Wellness Visit Medicare Annual Wellness Visit (AWV) [facility] Start: 1945 Screening for osteoporosis Bone Density Scan [facility] Bacteria identified in Urine by Culture [facility] Patient Education Low back pain in adults [facility] Work Phone: [facility] Immunizations Immunization Date Immunization Notes Care Provider Fa cility 07-03-2022 Fluad Quadrivalent 0 .5 ML Intramuscular Prefilled Syringe Li Lee Work Phone: [facility] elias 250 DO Work Phone: 07-03-2022 influenza virus vacc ine, unspecified formulation Maxine Llanes [facility] [place] 07-03-2022 influenza, injectabl e, quadrivalent, contains preservative Tom Ruano MD Work Phone: [facility] Work Phone: 06-17-2022 Pfizer COVID-19 Vac Bivalent 30 MCG/0.3ML Intramuscular Suspension Li Lee Work Phone: [facility] Comment on above: Result Comment: 2022: [id number] 04-13-2021 Pfizer-BioNTech COVI D-19 Vacc 30 MCG/0.3ML Intramuscular Suspension Li Lee Work Phone: [facility] [place] Comment on above: Result Comment: 2022: [id number] 08-30-2020 Pfizer-BioNTech COVI D-19 Vacc 30 MCG/0.3ML Intramuscular Suspension Li Lee Work Phone: [facility] Comment on above: Result Comment: 2022: [id number] 08-09-2020 Pfizer-BioNTech COVI D-19 Vacc 30 MCG/0.3ML Intramuscular Suspension Li Lee Work Phone: [facility] Comment on above: Result Comment: 2022: [id number] 07-01-2019 influenza virus vacc ine, unspecified formulation Maxine Shradd[facility] 07-01-2019 influenza, injectabl e, quadrivalent, contains preservative Li Lee Work Phone: [facility] [employer] DO Work Phone: 07-14-2018 influenza virus vacc ine, unspecified formulation Li Lee Work Phone: [facility] 04-16-2018 influenza virus vacc ine, unspecified formulation Maxine Shradd[facility] 04-16-2018 pneumococcal polysaccharide vaccine, 23 valent Li Lee Work Phone: [facility] 04-13-2018 influenza virus vacc ine, unspecified formulation Li Lee Work Phone: [facility] 250 DO Work Phone: 04-13-2018 pneumococcal conjuga te vaccine, 13 valent Li Lee Work Phone: [facility] 250 DO Work Phone: 05-16-2017 influenza virus vacc ine, unspecified formulation Maxine Shradd[facility] 05-12-2017 influenza, high dose seasonal, preservative-free Li Lee Work Phone: [facility] [employer] DO Work Phone: 10-30-2016 pneumococcal conjuga te vaccine, 13 valent Li Lee Work Phone: [facility] 10-12-2016 pneumococcal polysaccharide vaccine, 23 valent Li Lee Work Phone: [facility] 250 DO Work Phone: 07-14-2011 influenza virus vacc ine, unspecified formulation Li Lee Work Phone: [facility] 250 DO Work Phone: Payers Date Payer Category Payer Medicare [id number] 2022 Self-pay [id number] 2022 Unknown 2010 Medicare [id number] 2010 Medicare MEDICARE MEDICAR E PART A AND B [id number] 2010-Present [address] [place] [address] [id number] 1959 Medicare [id number] 1959 Self-pay [id number] 1959 Unknown [id number] 1945 Unknown [id number] 1945 Unknown [id number] .16.840.1.408982.3.579.2.593 1945 Unknown [id number] 2.16.840.1.496986.3.579.2.593 1945 Unknown [id number] 2.16.840.1.466992.3.579.2.593 1945 Unknown [id number] 2.16.840.1.301117.3.579.2.593 1945 Unknown [id number] 2.16.840.1.542493.3.579.2.356 1945 Unknown [id number] 2.16.840.1.865411.3.579.2.356 1945 Unknown [id number] 2.16.840.1.097421.3.579.2.1244 1945 Unknown [id number] 2.16.840.1.980862.3.579.2.1246 1945 Unknown [id number] 2.16.840.1.141148.3.579.2.1246 1945 Unknown [id number] 2.16.840.1.627304.3.579.2.1246 1945 Unknown [id number] 2.16.840.1.314224.3.579.2.1246 1945 Unknown [id number] 2.16.840.1.600265.3.579.2.1246 1945 Unknown [id number] 2.16.840.1.128461.3.579.2.727 1945 Unknown [id number] 2.16.840.1.805510.3.579.2.727 1945 Unknown [id number] 2.16.840.1.457187.3.579.2.727 1945 Unknown [id number] 2.16.840.1.573106.3.579.2.727 1945 Unknown [id number] 2.16.840.1.028390.3.579.2.727 1945 Unknown [id number] 2.16.840.1.679830.3.579.2.727 1945 Unknown [id number] 2.16.840.1.214595.3.579.2.727 1945 Unknown [id number] 2.16.840.1.315593.3.579.2.727 1945 Unknown [id number] 2.16.840.1.968233.3.579.2.727 1945 Unknown [id number] 2.16.840.1.971647.3.579.2.727 1945 Unknown [id number] 2.16.840.1.279434.3.579.2.727 1945 Unknown [id number] 2.16.840.1.446200.3.579.2.727 1945 Unknown [id number] 2.16.840.1.030101.3.579.2.727 Medicare [id number] Unknown [id number] 2.16.840.1.344779.3.579.2.531 Unknown [id number] 2.16.840.1.426950.3.579.2.531 Social History Date Type Detail Facility Start: 07-08-2023 End: 09-17-2023 Former smoker Former smoker [facility] 250 DO Work Phone: Comment on above: Quit 17 years ago; Quit 25+ years ago; coffee occasionally soda, tea; Start: 08-06-2018 End: 07-08-2023 Tobacco smoking status MEIS Ex-smoker (finding) [facility] Start: 1945 Sex Assigned At Female [facility] Start: 07-08-2023 End: 09-17-2023 Sex Assigned At [facility] Tobacco smoking status Never Mina [facility] End: 07-14-1996 History of tobacco use Current smoker [facility] Work Phone: End: 07-14-1996 History of tobacco use Cigarette Smoker [facility] Work Phone: Start: 07-08-2023 Tobacco use and exposure Smoke less tobacco non-user [facility] Work Phone: Start: 09-17-2023 Alcohol intake Current drinke r of alcohol (finding) [facility] Work Phone: Start: 07-08-2023 Alcohol Comment occasional [facility] Work Phone: Start: 1945 Sex Assigned At Not on file U [facility] Work Phone: Start: 09-07-2023 End: 10-14-2023 Exposure to SARS-CoV-2 (event) Not sure [facility] Start: 08-13-2023 Tobacco smoking stat us NHIS Never smoked tobacco (finding) [facility] Medical Equipment Procedure Code Equipment Code Equipment Origin al Text Equipment Identifier Dates AAA repair with graft GRAFT HEMASHIELD [id number] FDA Start: 07-20-2018 AAA repair with graft IR STENT SMART 9 X 40 120 CM FDA Start: 07-20-2018 AAA repair with graft GRAFT HEMASHIELD [id number] FDA Start: 07-20-2018 AAA repair with graft IR STENT SMART 9 X 40 120 CM FDA Start: 07-20-2018 CL STENT XIENCE ALP 2.25 X 15 FDA Start: 06-24-2017 CL STENT XIENCE ALP 2.5 X 38 FDA Start: 06-24-2017 CL STENT XIENCE ALP 3.0 X 18 FDA Start: 06-24-2017 STENT PALMAZ CHLOE E 7 X 24 135CM FDA Start: 09-11-2017 Mis DME Prescription, See Instructions, 100 strip(s), 3, True Metrix Test Strips Check AC[facility]HS, [facility], Supply, 140.6, cm, 02/10/23 11:29:00 EDT, Height/Length Dosing, 79.2, kg, 02/10/23 11:29:00 EDT, Weight Dosing Start: 02-10-2023 CL STENT XIENCE ALP 2.25 X 15 FDA Start: 06-24-2017 CL STENT XIENCE ALP 2.5 X 38 FDA Start: 06-24-2017 CL STENT XIENCE ALP 3.0 X 18 FDA Start: 06-24-2017 STENT PALMAZ CHLOE E 7 X 24 135CM FDA Start: 09-11-2017 Clinical Notes 11-11-2016 to 09-17-2023 Tom Ruano MD - 09/17/2023 1:20 PM ESTPatient Instructions Note Date & Type Note Facility 09-17-2023 History of Presen t illness Narrative Subjective Lexi Tatum is a 78 y.o. female Chief Complaint Follow-up HPI Patient returns in follow-up of problems as noted. In the interim she has done well. I cannot elicit any angina CHF or arrhythmia symptomatology. She is, though, very limited. She arrives in a wheelchair and acknowledges significant hip pain limiting her lifestyle. She is anticipating her planning orthopedic consultation and hip replacement surgery. Review of chart demonstrates that she has history of complex disease necessitating bypass surgery. She has also had angioplasty in the past. Unfortunately she cannot exert enough aerobic activity level to provide useful activities of daily living to assess coronary disease and because of this I believe her coronary disease should be reevaluated in anticipation of an upcoming surgery, as well as the fact that it has been about 6 or 7 years since she had her bypass surgery without any repeat evaluation. She is in agreement. We discussed and reviewed her treatment appears that her lipids and blood pressure are adequately treated. Ischemic cardiomyopathy for the time being appears to be class I and there are no overt manifestations of heart failure. Her carotid artery disease is followed by other providers and we will defer to them. The merits of weight loss were advocated Review of Systems All other systems reviewed and are negative. Vitals: 09/17/23 1307 BP: 116/70 BP Location: Right arm Patient Position: Sitting Pulse: 84 Weight: 74.8 kg (165 lb) Height: 1.499 m (4' 11 ) Objective Physical Exam Constitutional: Appearance: Normal appearance. HENT: Nose: Nose normal. Neck: Vascular: No carotid bruit. Cardiovascular: Rate and Rhythm: Normal rate. Pulses: Normal pulses. Heart sounds: Normal heart sounds. Pulmonary: Effort: Pulmonary effort is normal. Abdominal: General: Bowel sounds are normal. Palpations: Abdomen is soft. Musculoskeletal: General: Normal range of motion. Cervical back: Normal range of motion. Right lower leg: No edema. Left lower leg: No edema. Skin: General: Skin is warm and dry. Neurological: General: No focal deficit present. Mental Status: She is alert. Psychiatric: Mood and Affect: Mood normal. Behavior: Behavior normal. Thought Content: Thought content normal. Judgment: Judgment normal. Allergies Williams inhibitors, Atorvastatin, Spironolactone, and Xsrnjuo-puj-cmc reductase inhibitors Current Medications Current Outpatient Medications: allopurinol (Zyloprim) 300 mg tablet, Take 1 tablet (300 mg) by mouth once daily., Disp: , Rfl: aspirin 81 mg EC tablet, TAKE ONE TABLET BY MOUTH DAILY, Disp: 90 tablet, Rfl: 3 Basaglar KwikPen U-100 Insulin 100 unit/mL (3 mL) pen, Inject 50 Units under the skin once daily at bedtime., Disp: , Rfl: carvedilol (Coreg) 25 mg tablet, TAKE ONE TABLET BY MOUTH TWICE A DAY, Disp: 180 tablet, Rfl: 3 cholecalciferol (Vitamin D-3) 5,000 Units tablet, Take 1 tablet (5,000 Units) by mouth once daily. with food, Disp: , Rfl: clopidogrel (Plavix) 75 mg tablet, TAKE ONE TABLET BY MOUTH ONCE DAILY, Disp: 90 tablet, Rfl: 0 furosemide (Lasix) 40 mg tablet, Take 1 tablet (40 mg) by mouth once daily., Disp: , Rfl: gabapentin (Neurontin) 300 mg capsule, Take 1 capsule (300 mg) by mouth 2 times a day., Disp: , Rfl: NovoLOG Flexpen U-100 Insulin 100 unit/mL (3 mL) pen, INJECT 20 UNITS VIA SUBCUTANEOUS ROUTE NEEDED PER SLIDING SCALE, Disp: , Rfl: oxybutynin (Ditropan) 5 mg tablet, Take 1 tablet (5 mg) by mouth once daily in the morning., Disp: , Rfl: potassium chloride CR 10 mEq ER tablet, 1 tablet (10 mEq) once daily., Disp: , Rfl: rosuvastatin (Crestor) 5 mg tablet, Take 1 tablet (5 mg) by mouth once daily at bedtime., Disp: , Rfl: Assessment/Plan 1. CAD, multiple vessel With remote bypass surgery. Presently no symptoms but unfortunately patient does not exert sufficient aerobic workload to provide accurate assessment of coronary disease and his progression. Because of this a stress test is recommended. 2. S/P CABG x 3 Remote bypass surgery. It has been many years and because of this coronary disease should be reevaluated 3. History of angioplasty Previously a lasting and durable result. Difficult to assess recurrence or progression of disease 4. Primary hypertension Adequate control based upon review 5. Ischemic cardiomyopathy Functional class I at the present time 6. Mixed hyperlipidemia Adequate control based upon review 7. BMI 32.0-32.9,adult The merits of weight loss were advocated 8. Former smoker She was congratulated on smoking cessation Scribe Attestation By signing my name below, I, Lisette Pio MAIER attest that this documentation has been prepared under the direction and in the presence of Tom Ruaon MD. Provider Attestation - Scribe documentation All medical record entries made by the Scribe were at my direction and personally dictated by me. I have reviewed the chart and agree that the record accurately reflects my personal performance of the history, physical exam, discussion and plan. documented in this encounter [facility] Work Phone: 09-17-2023 Instructions Kaleigh Funez LPN - 09/17/2023 1:20 PM EST Please bring all medicines, vitamins, and herbal supplements with you when you come to the office. Prescriptions will not be filled unless you are compliant with your follow up appointments or have a follow up appointment scheduled as per instruction of your physician. Refills should be requested at the time of your visit. documented in this encounter [facility] Work Phone: 09-09-2023 Note [id number]#1.00[facility] 09-09-2023 Note [id number]#1.00[facility] 09-01-2023 Note [id number]#1.00[facility] 08-13-2023 Evaluation note Encounter Date Diagnosis Assessment Notes Jul, Primary osteoarthritis of left hip (ICD-10 - M16.12) Jul, Other We have provided her a few names of [facility] physicians that are currently taking new [...] can see her 3 months after that. [facility] Other 09-14-2023 Evaluation note* Encounter Date Diagnosis [...] is considering changing from her current PCP [facility] Other 05-02-2023 Evaluation note* Encounter Date Diagnosis [...] Above note written by Ramandeep Aggarwal LPN, Process Development Manager. Edited and approved by Dr. Ross Colmenares [...] negative findings were considered in medical decision-making. [facility] Other 05-01-2017 History general Narrative - Reported* Type Description Date Medical History [place] Medical History Hyperlipiedmia Medical History PVD Medical History DM Medical History HTN Surgical History Open Heart 11/2016 Surgical History Cardiac Stent 09/2017 Surgical History Cardiac Stent 05/2017 Surgical History C- section 1960 Surgical History Rt iliac angioplasty & stent; Aortobiiliac bifurcation graft 07/20/18 Hospitalization History See above [facility] [employer] Other Evaluation + Plan note Future Appointments Appointment Date:03/25/2023 01:00:00 PM Scheduled Provider: Location:[facility] Appointment Type:FM Medicare Wellness Subsequent [facility] information available [facility] Work Phone: Evaluation noteNo InformationNort [employer] Other Evaluation note* Diagnosis CAD, multiple vessel- Primary S/P CABG x 3 Postsurgical aortocoronary bypass status History of angioplasty Primary hypertension Unspecified essential hypertension Ischemic cardiomyopathy Other specified forms of chronic ischemic heart disease Mixed hyperlipidemia BMI 32.0-32.9,adult Former smoker Personal history of tobacco use, presenting hazards to health Occlusion and stenosis of right carotid artery Shortness of breath documented in this encounter [facility] Work Phone: Evaluation note* Diagnosis CAD, multiple vessel S/P CABG x 3 Postsurgical aortocoronary bypass status Ischemic cardiomyopathy Other specified forms of chronic ischemic heart disease Occlusion and stenosis of right carotid artery Shortness of breath documented in this encounter [facility] Work Phone: Evaluation note* Diagnosis Onset Date Resolution Status Osteoarthritis of left hip a cute Type 2 diabetes mellitus with hyperglycemia acute UTI (urinary tract infection) acute Lumbar pain acute Osteoarthritis of left hip a cute Uncontrolled diabetes mellitus acute [facility] Work Phone: History of Present illness Narrative* [...] are reviewed and felt to be satisfactory. [facility] Kineta DO Work Phone: History of Present illness [...] are reviewed and felt to be satisfactory. [facility] Kineta [facility] Work Phone: History of Present illness [...] we suggest no change and follow-up as gjocoQF-Mzdatuwpvu-Aapvqpcn 250 DO Work Phone: Hospital course Narrative No data available for this section [facility] Discharge instructions No data available for this section [facility] No data available for this section [facility] for [facility] (narrative)* Consultation (Routine) - Authorized Specialty Diagnoses / Procedures Referred By Dimitri hartley Referred To Contact Cardiology Diagnoses Occlusion and stenosis of right carotid artery Procedures Follow Up In Cardiology Tom Ruano MD [address] [place] [address] 2, [address] [address] Jeimy Braun APRN-ELLIOT [address] [place] [address] 2, [address] [address] Referral ID Status Reason Start Date Expiration Date V isits Requested Visits Authorized [id number] Authorized 09/17/2023 09/16/2024 1 1 * Cardiac Stress Testing (Routine) - Pending Review Specialty Diagnoses / Procedures Referred By Dimitri Referred To Contact Radiology Diagnoses CAD, multiple vessel S/P CABG x 3 Ischemic cardiomyopathy Occlusion and stenosis of right carotid artery Shortness of breath Procedures Nuclear Stress Test CHG MYOCARDIAL SPECT MULTIPLE STUDIES Tom Ruano MD [address] [place] [address] 2, [address] [address] Referral ID Status Reason Start Date Expiration Date V isits Requested Visits Authorized [id number] Pending Review 09/17/2023 09/16/2024 5 5 [facility] Work Phone: Reason for visit NarrativeNEW SELF REFERRAL [facility] [employer] Other Summary Purpose Family History No Family [...] is of left hip (M16.12) Referral Organization [facility] [employer] Referring Provider First Name Ross Referring Provider Last Name Darrian Referring Provider Specialty Pain Medici ne Referred Organization [facility] [employer] Referred Provider Da Lozano II Referred Address [address] [facility] [place], [place],[address] Referred Provider Specialty Orthopedic S urgery Referral Priority Routine Referral Appointment Date 2022-12-04 General Notes Amanda Camejo 08:40:19 AM >received today, patient is scheduled already with Dr Lozano 12/04/22. Sending the p2p at this time Specialty Diagnoses / Procedures Referred By Dimitri hartley Referred To Contact Radiology Diagnoses CAD, multiple vessel S/P CABG x 3 Ischemic cardiomyopathy Occlusion and stenosis of right carotid artery Shortness of breath Procedures Nuclear Stress Test CHG MYOCARDIAL SPECT MULTIPLE STUDIES Tom Ruano MD [address] [facility] [address], [address] [place] [address] Referral ID Status Reason Start Date Expiration Date V isits Requested Visits Authorized [id number] Pending Review 09/17/2023 09/16/2024 5 5 Chief Complaint and Reason for Visit Chief Complaint Op Sp Lt Hip Pain, N ext Step establish- see son op sp discuss next step UTI - UA Reason for Visit Osteoarthritis of le ft hip Type 2 diabetes mellitus with hyperglycemia UTI (urinary tract infection) Lumbar pain Osteoarthritis of left hip Uncontrolled diabetes mellitus Additional Source Comments INFORMATION SOURCE (unrecogn ized section and content) DATE CREATED AUTHOR 12/31/2017 [facility] Healthcare DATE CREATED AUTHOR AUTHOR'S ORGANIZ ATION 01/07/2018 [facility] DATE CREATED AUTHOR AUTHOR'S ORGANIZ ATION 05/17/2020 [facility] DATE CREATED AUTHOR AUTHOR'S ORGANIZ ATION 02/14/2022 [facility] DATE CREATED AUTHOR AUTHOR'S ORGANIZ ATION 07/26/2022 [facility] DATE CREATED AUTHOR AUTHOR'S ORGANIZ ATION 07/26/2022 [facility] DATE CREATED AUTHOR AUTHOR'S ORGANIZ ATION 03/02/2023 [facility] DATE CREATED AUTHOR AUTHOR'S ORGANIZ ATION 10/16/2023 [facility] DATE CREATED AUTHOR AUTHOR'S ORGANIZ ATION 10/18/2023 [facility] DATE CREATED AUTHOR AUTHOR'S ORGANIZ ATION 11/21/2023 [facility] Care Teams (unrecognized sec tion and content) Team Status: Active Member Role Status Dates Li Lee MD Primary Care Provider Active Team Status: Inactive Member Role Status Dates Li Lee MD Primary Care Provider Active Ross Colmenares MD Attending Provider Active 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 Specialty Start Date End Date Tom Ruano MD [address] [facility] [address], [facility] [address] [place] [address] PCP - MSSP ACO Attributed Provider 01/11/23 Stefan Best MD [address] [place] [address] [place] [address] PCP - General Family Medicine 09/17/23 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 Specialty Start Date End Date Tom Ruano MD [address] [facility] [address], [address] [place] [address] PCP - MSSP ACO Attributed Provider 01/11/23 Stefan Best MD [address] [place] [address] [place] [address] PCP - General Family Medicine 09/17/23 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 Specialty Start Date End Date Tom Ruano MD [address] [facility] [address], [address] [place] [address] PCP - MSSP ACO Attributed Provider 01/11/23 Stefan Best MD [address] [place] [address] [place] [address] PCP - General Family Medicine 09/17/23 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 Specialty Start Date End Date Tom Ruano MD [address] [facility] [address], [address] [place] [address] PCP - MSSP ACO Attributed Provider 01/11/23 Stefan Best MD [address] [place] [address] [place] [address] PCP - General Family Medicine 09/17/23 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 Specialty Start Date End Date Tom Ruano MD [address] [facility] [address] [place] [address] [place] Attributed Provider 01/11/23 Stefan Best MD [address] [place] [address] [address] [place] [address] PCP - General Family Medicine 09/17/23 Team Status: Active Member Role Status Dates Stefan Best MD Primary Care Provider Active Team Status: Inactive Member Role Status Dates Da Lozano II, MD Attending Provider Active Start: August 13, 2023 End: August 13, 2023 Team Status: Inactive Member Role Status Dates Stefan Best MD Primary Care Provide r, Attending Provider Active Start: September 09, 2023 End: September 09, 2023 Team Status: Inactive Member Role Status Dates Stefan Best MD Primary Care Provider Active Start: September 17, 2023 End: September 17, 2023 Da Lozano II, MD Attending Provider Active Start: September 17, 2023 End: September 17, 2023 Team Status: Inactive Member Role Status Dates Stefan Best MD Primary Care Provide r, Attending Provider Active Start: October 23, 2023 End: October 23, 2023 Goals (unrecognized section and content) Goals may be documented in a n alternate sectionNo InformationNo Information No data available for this sectionNo InformationNo InformationNo InformationNo InformationGoals may be documented in an alternate section REASON FOR VISIT (unrecogniz ed section and content) Reason Comments Follow-up 1y Specialty Diagnoses / Procedures Referred By Contac t Referred To Contact Radiology Diagnoses CAD, multiple vessel S/P CABG x 3 Ischemic cardiomyopathy Occlusion and stenosis of right carotid artery Shortness of breath Procedures Nuclear Stress Test CHG MYOCARDIAL SPECT MULTIPLE STUDIES Tom Ruano MD [address] [facility] [address] [place] [address] Referral ID Status Reason Start Date Expiration Date V isits Requested Visits Authorized [id number] Pending Review 09/17/2023 09/16/2024 5 5 FOR RECORDS PERTAINING TO PATIENTS WHO ARE [...] BE BASED ON THE PRIMARY CLINICAL RECORDS. [facility] [employer] [facility]. provides no warranty or guarantee of the accuracy or completeness of information in this document.
--- OUTSIDE RECORDS SUMMARY | 2023-11-22 09:40 | XMS_ITS | CCD ---
Author Organization [facility] Care Team Providers Care Child And Family Therapist Name Role Phone BLAKE KUO Unavailable Unavailable SHITAL, LI Unavailable Unavailable BLAKE KUO Unavailable Unavailable SHITAL, LI Unavailable Unavailable PHYSICIAN, DEFAULT Unavailable Unavailable PHYSICIAN, DEFAULT Unavailable Unavailable Li Lee Unavailable Unavailable Unavailable SHITAL, DR LI Conley Primary Care Unavailable LEE, DR LI Conley Admitting Unavailable LEE, DR LI Conley Attending Unavailable LEE, DR LI Conley Consulting Unavailable Lonaconing, DR Ren Consulting Unavailable LEE, DR LI [...] Attending UnaMD Li Ibanez Primary Care Provider [phone] MD Ross Colmenares Attending Provider Ross Colmenares Unavailable Maxine Llanes Primary Care Physician Da Lozano II Attending UnavailDa Aranda II Admitting UnavailLi Parker Primary Care Unavailable Ross Colmenares Admitting Unavailable Li Lee Primary Care Unavailable Ross Colmenares Attending Unavailable Da Lozano II Unavailable Tom Ruano MD Unavailable [phone] Stefan Best MD Primary Care Provider TOM RUANO Attending Unavailable STEFAN BEST Primary [...] atorvastatin; Translations: [atorvastatin] Drug Allergy 3 Myalgia [facility] (13 sources) Hmg-Coa Reductase Inhibitors (Statins); Translations: [Statins] Allergy to drug (finding) Myalgia [facility] transOMICusky 250 DO Work Phone: (5 sources) rosuvastatin; Translations: [rosuvastatin] Drug Allergy Myalgia [facility] Pairy 250 DO Work Phone: (20 sources) Spironolactone; Translations: [spironolactone] Drug Allergy 3 Other [facility] Pairy 250 DO Work Phone: (1 source) Iodine (And Iodine Containting Drugs) Drug allergy (disorder) [facility] (1 source) Pravastatin Drug Allergy [facility] (2 sources) Simvastatin Drug Allergy [facility] (1 source) Sulfonamides (Antibiotic) Drug allergy (disorder) [facility] (6 sources) Adhesive Tape Drug allergy rash [employer] Other (2 sources) Pravastatin; Translations: [pravastatin] Drug Allergy Unknown [facility] (11 sources) Angiotensin-conv erting enzyme inhibitor agent Drug Allergy 3 Other [facility] (13 sources) HMG-CoA reductase inhibitor; Translations: [HGRRCOU-CEO-BBN REDUCTASE INHIBITORS] Drug Allergy 3 Myalgia [facility] Work Phone: Medications Current Medications Medication Drug [...] 02/05/23 Status: [facility] Aspirin 81 [...] Start: 09-11-2017 take 1 capsule by mo [facility] once daily cholecalciferol 1000 intl units oral [...] 2017 1:00am take 1 capsule by mo [facility] every twenty-four hours Colace 100 [...] Start: 06-15-2021 take 1 capsule by mo [facility] twice daily Gabapentin 300 MG [...] 25, 2017 11:51am take 1 capsule by [facility] every twenty-four hours Gabapentin 300 MG 1 [...] Daily, # 15 mL, Refills(s) 2, Pharmacy: [facility] 1155, 140.6, cm, 02/10/23 11:29:00 EDT, Height/Length Dosing, 79.2, kg, 02/10/23 11:29:00 EDT, Weight Dosing Start Date: 02/10/23 Status: Ordered Start: 02-07-2023 Basaglar KwikP en 100 units/mL subcutaneous solution See Instructions, 50 units daily, # 15 mL, Refills(s) 0, Pharmacy: [place] [id number] Start Date: 02/07/23 Status: Ordered Start: 01-31-2021 [...] Daily, # 90 tab(s), Refills(s) 0, Pharmacy: [facility] 115, 140.6, cm, 02/10/23 11:29:00 EDT, Height/Length [...] Quantity: 60 Refills: 0 Ordered: 19-Dec-2016 [employer] FILAMENT CUTTER-METALLURGICAL ANALYST, Veronica Active Multiple Vitamins/Minerals TABS (10 sources) [...] disease, unspecified; Translations: [Atherosclerotic heart disease of [place] coronary artery without angina pectoris] Onset: 8 [...] Unclassified (2 sources) Athscl heart disease of [place] coronary artery w/o ang pctrs / I25.10(ICD-9) [...] Home Health Recordson 2023 Home Health Records [id number] #1.00TIFF Normal [facility] NM Heart Perfusion W stress and W radionuclide [place] 10-14-2023 Abnormal Lexiscan Myoview cardiac perfusion stress test. No myocardial ischemia by perfusion imaging. No myocardial infarction by perfusion imaging. Abnormal left ventricular systolic function with mild global hypokinesis. Left ventricular ejection fraction 48 %. No previous studies are available for comparison. Signed by: Charlotte Cordon 10/14/2023 4:27 PM Dictation workstation: [id number] Interpreted By: Charlotte Cordon and Giannuzzi Michael STUDY: MYOCARDIAL PERFUSION STRESS TEST WITH LEXISCAN Performing facility: [facility], [address] [place] [address], [address] Provider: Joey Ruano MD, [facility] PCP: Dr. Marsha Best Supervising provider: Joey Cobb DO, [facility] INDICATION: CAD; CABG ICM SOB; HISTORY: Gender: F; Age: 78 y/o ; Height: HT 149.9 cm cm; Weight: WT 74.844 kg kg. High Cholesterol; CAD; Diabetes; Previous PR; HTN; SOB; Quit smoking 27 years ago. Cardiac catheterization on 2016. PTCA on 2016. CABG on 2016. COMPARISON: No comparison. ACCESSION NUMBER(S): [id number] ORDERING CLINICIAN: TOM RUANO TECHNIQUE: ONE DAY [...] PERFUSION STRESS TEST WITH LEXISCAN Performing facility: [facility], [address] [place] [address], [address], [address] Provider: Joey Ruano MD, [facility] PCP: Dr. Marsha Best Supervising provider: Joey Cobb DO, [facility] INDICATION: CAD; CABG ICM SOB; HISTORY: Gender: F; Age: 78 y/o ; Height: HT 149.9 cm cm; Weight: WT 74.844 kg kg. High Cholesterol; CAD; Diabetes; Previous PR; HTN; SOB; Quit smoking 27 years ago. Cardiac catheterization on 2017. PTCA on 2017. CABG on 2017. COMPARISON: No comparison. ACCESSION NUMBER(S): [id number] ORDERING CLINICIAN: TOM RUANO TECHNIQUE: ONE DAY [...] Charlotte Cordon 10/14/2023 4:27 PM Dictation workstation: [id number] [facility] Work Phone: Radiology Study observation (narrative) [facility] Work Phone: NM Heart Perfusion W stress and W radionuclide IVOrdered By: Charlotte Cordon on 10-14-2023 [facility] Work Phone: NUCLEAR STRESS TESTon 2023 NUCLEAR STRESS TEST Interpreted By: Charlotte Cordon, and Omar Hernandez STUDY: MYOCARDIAL PERFUSION STRESS TEST WITH LEXISCAN Performing facility: [facility], [address] [place] [address], [address], [place] [address] [facility] Provider: Joey Ruano MD, [facility] PCP: Dr. Marsha Best Supervising provider: Joey Cobb DO, [facility] INDICATION: CAD; CABG ICM SOB; HISTORY: Gender: F; Age: 78 y/o ; Height: HT 149.9 cm cm; Weight: WT 74.844 kg kg. High Cholesterol; CAD; Diabetes; Previous PR; HTN; SOB; Quit smoking 27 years ago. Cardiac catheterization on 2017. PTCA on 2016. CABG on 2017. COMPARISON: No comparison. ACCESSION NUMBER(S): [id number] ORDERING CLINICIAN: TOM RUANO TECHNIQUE: ONE DAY [...] Charlotte Cordon 10/14/2023 4:27 PM Dictation workstation: [id number] [facility] Home Health Recordson 2023 [facility] Records [id number] #1.00TIFF [facility] Retail - Clinical Noteon Retail - Clinical Note [id number] #1.00TIFF Normal [facility] Home Health Recordson 2023 Home Health Records [id number] #1.00TIFF [facility] Home Health Recordson 2023 Home Health Records [id number] #1.00TIFF [facility] Home Health Records [id number] #1.00TIFF Normal [facility] Home Health Recordson 2023 Home Health Records [id number] #1.00TIFF [facility] Home Health Recordson 2023 Home Health Records [id number] #1.00TIFF [facility] ECG 12-Leadon 09-09-2023 ECG 12-Lead [id number] #1.00TIFF [facility] Home Health Recordson 2023 Home Health Records [id number] #1.00TIFF [facility] ED Note-Physicianon 09-01-19 ED Note-Physician [id number] #1.00TIFF [facility] RAD - MISCon 09-01-2023 RAD - MISC [id number] #1.00TIFF [facility] Ambulatory Visit Summaryon 0 08-21-2023 Ambulatory Visit [...] 3:40 PM EDT With: Maxine Sanchez Where: [facility] Family Medicine [place] Normal [facility] Family Medicine Office/Clini c Noteon 08-21-2023 Family [...] of clutter to prevent tripping and/or falling. 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 Patient denies any problems with ADL?s [...] monitor f (more content not included)... Normal [facility] Comment on above: Result Comment: Elec tronically [...] EST, Weight Dosing HgbA1c Lab Specimen Collect [id number] 3. Long-term insulin use (Z79.4: assisted (current) use of insulin) insulins changed to [...] virus vaccine, inactivated 07/03/2022 Recorded SARS-CoV-2 (COVID-19) mRNAMUL.ORD![id number] 06/17/2022 Re (more content not included)... Normal [facility] Comment on above: Result Comment: Elec tronically Signed By: Maxine Sanchez\.br\Date and Time Signed: 08/21/23 08:02 EST Formson 08-21-2023 Forms [id number] #1.00TIFF Normal [facility] [id number] 08-21-2023 HbA1c (Bld) [Mass fraction] 8.2 % High <=5.9 [facility] Comment on above: Performed By: #### 7 [id number] ####[facility] [id number] [place] [address] Patient Educationon 08-21-19 24 Patient Education Caregiving [...] night-lights. ? Place frequently used items in vtdw-nd-euvmi places. Lower the shelves around your home [...] the way. ? Do not use floor bulgarian or wax that makes floors slippery. If [...] include working with a physical therapist or inside sales trainer to improve your strength, balance, and endurance. Where to find more information ? Centers for Disease Control and Prevention, [place]: www.cdc.gov ? National [place] on Aging: www.jasmina.nih.gov Contact a health care [...] health ca (more content not included)... Normal [facility] Ambulatory Visit Summaryon 0 08-20-2023 Ambulatory Visit [...] 3:40 PM EDT With: Maxine Sanchez Where: [facility] Family Medicine [facility] Ambulatory Visit Summary LEXI TATUM Nestor :1945 Visit Date:08/20/2023 Ambulatory Visit Instructions Your Care Team Attending Physician - Maxine Sanchez Primary Care Physician - Maxine Sanchez This Is Your Medications List Misc Prescription ([facility] Prescription) acetaminophen (Tylenol) [...] for choosing us for your care. Sangeeta [facility] Pre-Visit Planningon 023 Pre-Visit Planning - From: [...] feel free to contact me at extension [phone]. Thank you! Bibiana Walter LPN - From: Maxine Sanchez To: Bibiana Walter; Sent: 05/28/2023 14:06:51 EST Subject: RE: Pre-Visit Planning Caller Name: LEXI TATUM; Caller Number: H , M chronic kidney disease stage 3, unspecified Normal [address] [facility] Pre-Visit Planning - From: Bibiana Walter To: [...] Type 1 diabetes and hypercholesterolemia Normal 272 [facility] Ambulatory Visit Summaryon 1 07-21-2022 Ambulatory Visit [...] 11:00 AM EST With: Maxine Sanchez Where: [facility] Family Medicine Office/Clini c Noteon 05-21-2023 [...] 3 months. Ordered: HgbA1c Lab Specimen Collect [id number] 2. Long-term insulin use (Z79.4: assisted (current) use of insulin) see above Ordered: HgbA1c Lab Specimen Collect [id number] 3. Former smoker (Z87.891: Personal history of [...] virus vaccine, inactivated 07/03/2022 Recorded SARS-CoV-2 (COVID-19) mRNAMUL.ORD![id number] 06/17/2022 Recorded 2023-02-10: TPV75 SARS-CoV-2 (COVID-19) mRNA [...] Recorded pneumococcal 13-valent vaccine 10/30/2016 Recorded Normal [facility] Comment on above: Result Comment: Elec tronically Signed By: Maxine Sanchez\.br\Date and Time Signed: 05/21/23 13:14 EST [id number] 05-21-2023 HbA1c (Bld) [Mass fraction] 8.7 % High <=5.9 [facility] Comment on above: Performed By: #### 7 [id number] #### [facility] Laboratory [address] [place] [address] Ambulatory Visit Summaryon 0 03-05-2023 Ambulatory Visit Summary LEXI TATUM :1945 Visit Date:03/05/2023 Ambulatory Visit Instructions Your Diagnosis BMI 39.0-39.9,adult Former smoker Flank pain Diabetes Your Care Team Attending Physician - Mxaine Sanchez Primary Care Physician - Maxine Sanchez This Is Your Medications List Misc Prescription ([facility] Prescription) allopurinol (allopurinol 300 mg Tab) [...] Appointments Friday 1:00 PM EDT With: Where: [facility] [place] Normal [address] [place] [address]- \.br\ Medications\.br\ What How Much When Why [...] Vitamin D deficiency\.br\ Wellness examination\.br\ \.br\ [facility] Family Medicine Office/Clini c Noteon [...] continue BS log. may consider referral to lumber sales supervisor at that visit. 2. Flank pain (R10.9: [...] virus vaccine, inactivated 07/03/2022 Recorded SARS-CoV-2 (COVID-19) mRNAMUL.ORD![id number] 06/17/2022 Recorded 2023-02-10: TPV75 SARS-CoV-2 (COVID-19) mRNA [...] Recorded pneumococcal 13-valent vaccine 10/30/2016 Recorded Normal [facility] Comment on above: Result Comment: Elec tronically Signed By: Shraddha GAMBLE, Maxine Baez\.br\Date and Time Signed: 03/05/23 14:10 EDT Retail - Clinical Noteon Retail - Clinical Note [id number] #1.00CD:127 Normal [facility] Family Medicine Office/Clini c Noteon 02-11-2023 Family Medicine Office/Clinic Note HPI Staff Lexi is a 77 year old female presenting to [facility] care Establish Care: History: Any previous diagnosis: acute systolic heart failure, CKD stage 4, Diabetic peripheral neuropathy, Vitamin D deficiency, Type 1 diabetes, gout, osteoarthritis, pure hypercholesterolemia History of seeing any specialist: Dr Echeverria [place] heart, Dr Zhang Marquis specialist, Pain Management Dr Blake Baez hip injections, Dr Rust Senior Information Security Engineer When was your last doctors visit: Last provider: Any recent labs: 01/30/22 A1c 9.4 Health Maintenance UTD: Colonoscopy: aged out Mammogram: aged out Pelvic/Pap: aged out Acute: Current issues/complaints: Pt would like to discuss Incontinence currently is taking oxybutynin 5mg daily, pt knows she she has to go and is unable to stop flow. Edema: pt would like to discuss pt states Grocery Supervisor isn't concerned Pt needs refill on Basaglar, [...] Metabolic Panel eGFR HgbA1c Lab Specimen Collect [id number] Lipid Panel Thyroid Stimulating Hormone Vitamin D 25 Hydroxy 2. BMI 40.0-44.9, adult (Z68.41: Body mass index [BMI] 40.0-44.9, adult) BMI education complete Ordered: oxybutynin, 10 mg = 1 tab(s), Oral, Daily, # 90 tab(s), Refills(s) 0, Pharmacy: [facility], 140.6, cm, 02/10/23 11:29:00 EDT, Height/Length Dosing, 79.2, kg, 02/10/23 11:29:00 EDT, Weight Dosing Lab Specimen Collect 16564 Vitamin D 25 Hydroxy 3. Former smoker (Z87.891: Personal history of nicotine dependence) continue not smoking Ordered: oxybutynin, 10 mg = 1 tab(s), Oral, Daily, # 90 tab(s), Refills(s) 0, Pharmacy: [facility], 140.6, cm, 02/10/23 11:29:00 EDT, Height/Length Dosing, 79.2, kg, 02/10/23 11:29:00 EDT, Weight Dosing Lab Specimen Collect 13837 Vitamin D 25 Hydroxy 4. Type 1 [...] [facility] (more content not included)... Normal [facility] Comment on above: Result Comment: Elec tronically [...] Follow-Up Appointments Friday 1:00 PM EDT Where: [facility] [place] Normal [facility] Auto Diffon 02-10-2023 Basophils/100 WBC (Bld) 0.4 % Normal 0.0-2.0 [facility] Comment on above: Order Comment: Order Added by Discern Expert. Performed By: #### 7 [id number] #### [facility] Laboratory [address] [place] [address] Basophils/Leukocyt es Auto (Bld) [Pure # fraction] 0.0 E9/L Normal 0.0-0.2 [facility] Comment on above: Order Comment: Order Added by Discern Expert. Performed By: #### 7 [id number] #### [facility] [address] [place] [address] Eosinophils/100 WBC (Bld) 2.6 % Normal 0.0-8.0 [facility] Comment on above: Order Comment: Order Added by Vianney Expert. Performed By: #### 7 [id number] #### [facility] [address] [place] [address] Eosinophils/Leukoc ytes Auto (Bld) [Pure # fraction] 0.2 E9/L Normal 0.0-0.5 [facility] Comment on above: Order Comment: Order Added by Discern Expert. Performed By: #### 7 [id number] #### [facility] [address] [place] [address] Lymphocytes/100 WBC (Bld) 23.0 % Normal 14.0-50.0 [facility] Comment on above: Order Comment: Order Added by Discern Expert. Performed By: #### 7 [id number] #### [facility] [address] [place] [address] Lymphocytes/Leukoc ytes Auto (Bld) [Pure # fraction] 1.8 E9/L Normal 1.0-4.0 [facility] Comment on above: Order Comment: Order Added by Discern Expert. Performed By: #### 7 [id number] #### [facility] [address] [place] [address] Monocytes/100 WBC (Bld) 6.6 % Normal 4.0-14.0 [facility] Comment on above: Order Comment: Order Added by Discern Expert. Performed By: #### 7 [id number] #### [facility] [address] [place] [address] Monocytes/Leukocyt es Auto (Bld) [Pure # fraction] 0.5 E9/L Normal 0.2-1.0 [facility] Comment on above: Order Comment: Order Added by Discern Expert. Performed By: #### 7 [id number] #### [facility] [address] [place] [address] Neutrophils/100 WBC (Bld) 67.4 % Normal 36.0-75.0 [facility] Comment on above: Order Comment: Order Added by Discern Expert. Performed By: #### 7 [id number] #### [facility] [address] [place] [address] Neutrophils/Leukoc ytes Auto (Bld) [Pure # fraction] 5.1 E9/L Normal 2.0-7.5 [facility] Comment on above: Order Comment: Order Added by Discern Expert. Performed By: #### 7 [id number] #### [facility] [address] [place] [address] CBC w/ Auto Diffon 3 Erythrocyte distribution width (RBC) [Ratio] 16.0 % High 10.9-14.2 [facility] Comment on above: Performed By: #### 7 [id number] #### [facility] [address] [place] [address] Hematocrit (Bld) [Volume fraction] 40.5 % Normal 34.0-46.0 [facility] Comment on above: Performed By: #### 7 [id number] #### [facility] [address] [place] [address] Hemoglobin (Bld) [Mass/Vol] 13.5 g/dL Normal 12.0-16.0 [facility] Comment on above: Performed By: #### 7 [id number] #### [facility] [address] [place] [address] MCH (RBC) [Entitic mass] 31.7 pg Normal 27.0-34.0 [facility] Comment on above: Performed By: #### 7 [id number] #### [facility] [address] [place] [address] MCHC (RBC) [Mass/Vol] 33.3 g/dL Normal 31.4-36.0 [facility] Comment on above: Performed By: #### 7 [id number] #### [facility] [address] [place] [address] MCV (RBC) [Entitic vol] 95.4 fL Normal 80.0-100.0 [facility] Comment on above: Performed By: #### 7 [id number] #### [facility] [address] [place] [address] Platelet mean volume (Bld) [Entitic vol] 10.1 fL Normal 6.4-10.8 [facility] Comment on above: Performed By: #### 7 [id number] #### [facility] [address] [place] [address] Platelets (Bld) [#/Vol] 192.0 E9/L Normal 150.0-500.0 [facility] Comment on above: Performed By: #### 7 [id number] #### [facility] [address] [place] [address] RBC (Bld) [#/Vol] 4.2 E12/L Low 4.3-5.9 [facility] Comment on above: Performed By: #### 7 [id number] #### [facility] [address] [place] [address] WBC corrected for nucl RBC Auto (Bld) [#/Vol] 7.6 E9/L Normal 4.0-11.0 [facility] Comment on above: Performed By: #### 7 [id number] #### [facility] [address] [place] [address] CHEMISTRYOrdered By: SYSTEM SYSTEM on 02-10-2023 25-hydroxyvitamin [...] rate/Area] 39 mL/min/1.73 m2 Low >=59mL/min/1.73 m2 [facility] Chem S Globulin (S) [Mass/Vol] 3.6 g/dL Normal 1.4 - 4.0 gm/dL FT Remisol Glucose [Mass/Vol] 235 mg/dL High 55 - 199 mg/dL FT Remisol Potassium [Moles/Vol] 4.0 mmol/L Normal 3.5 - 5.3 mmol/L FT Remisol Protein [Mass/Vol] 7.2 g/dL Normal 6.0 - 7.8 gm/dL F [facility] Remisol Sodium [Moles/Vol] 137 mmol/L Normal 135 [...] (Bld) [Mass fraction] 10.9 % High <=5.9% [facility] ChemAutoSS CMPon 02-10-2023 Albumin [Mass/Vol] 3.6 g/dL Normal 3.3-5.0 [facility] Comment on above: Performed By: #### 7 [id number] #### [facility] [address] [place] [address] Albumin/Globulin (S) [Mass conc ratio] 1.0 Low 1.1-2.2 [facility] Comment on above: Performed By: #### 7 [id number] #### [facility] [address] [place] [address] ALP [Catalytic activity/Vol] 57 Int._Unit/L Normal 21-98 [facility] Comment on above: Performed By: #### 7 [id number] #### [facility] [address] [place] [address] ALT No additional P-5'-P [Catalytic activity/Vol] 12 Int._Unit/L Normal 6-46 [facility] Comment on above: Performed By: #### 7 [id number] #### [facility] [address] [place] [address] Anion gap [Moles/Vol] 15 mmol/L Normal 6-16 [facility] Comment on above: Performed By: #### 7 [id number] #### [facility] [address] [place] [address] AST [Catalytic activity/Vol] 18 Int._Unit/L Normal 5-43 [facility] Comment on above: Performed By: #### 7 [id number] #### [facility] [address] [place] [address] Bilirubin [Mass/Vol] 0.5 mg/dL Normal 0.0-1.1 [facility] Comment on above: Performed By: #### 7 [id number] #### [facility] [address] [place] [address] Calcium [Mass/Vol] 9.8 mg/dL Normal 8.9-11.1 [facility] Comment on above: Performed By: #### 7 [id number] #### [facility] [address] [place] [address] Chloride [Moles/Vol] 98 mmol/L Low 101-111 [facility] Comment on above: Performed By: #### 7 [id number] #### [facility] [address] [place] [address] CO2 [Moles/Vol] 28 mmol/L Normal 21-31 [facility] Comment on above: Performed By: #### 7 [id number] #### [facility] [address] [place] [address] Creatinine [Mass/Vol] 1.4 mg/dL High 0.5-1.3 [facility] Comment on above: Performed By: #### 7 [id number] #### [facility] [address] [place] [address] Globulin (S) [Mass/Vol] 3.6 g/dL Normal 1.4-4.0 [facility] Comment on above: Performed By: #### 7 [id number] #### [facility] [address] [place] [address] Glucose [Mass/Vol] 235 mg/dL High 55-199 [facility] Comment on above: Result Comment: If t his glucose result represents a fasting glucose, interpretation should refer to the following reference range: 55-99 mg/dL Performed By: #### 7 [id number] #### [facility] [address] [place] [address] Potassium [Moles/Vol] 4.0 mmol/L Normal 3.5-5.3 [facility] Comment on above: Performed By: #### 7 [id number] #### [facility] [address] [place] [address] Protein [Mass/Vol] 7.2 g/dL Normal 6.0-7.8 [facility] Comment on above: Performed By: #### 7 [id number] #### [facility] [address] [place] [address] Sodium [Moles/Vol] 137 mmol/L Normal 135-145 [facility] Comment on above: Performed By: #### 7 [id number] #### [facility] [address] [place] [address] Urea nitrogen [Mass/Vol] 23 mg/dL High 5-21 [facility] Comment on above: Performed By: #### 7 [id number] #### [facility] [address] [place] [address] Urea nitrogen/Creatinin e [Mass ratio] 16 No Units Normal 10-20 [facility] Comment on above: Performed By: #### 7 [id number] #### [facility] [address] [place] [address] HEMATOLOGYOrdered By: SYSTEM SYSTEM on 02-10-2023 Basophils/100 [...] 10.1 fL Normal 6.4 - 10.8 fL [facility] Platelets (Bld) [#/Vol] 192.0 E9/L Normal 150.0 - 500.0 E9/L [facility] RBC (Bld) [#/Vol] 4.2 E12/L Low 4.3 - 5.9 E12/L [facility] HemeAutoSS WBC corrected for nucl RBC Auto (Bld) [#/Vol] 7.6 E9/L Normal 4.0 - 11.0 E9/L [facility] MabY2oxv 02-10-2023 HbA1c (Bld) [Mass fraction] 10.9 % High <=5.9 [facility] Comment on above: Performed By: #### 7 [id number] #### [facility] [address] [place] [address] Lipid Panelon 02-10-2023 Cholesterol [Mass/Vol] 196 mg/dL Normal 120-200 [facility] Comment on above: Performed By: #### 7 [id number] #### [facility] [address] [place] [address] Cholesterol in HDL [Mass/Vol] 50 mg/dL Invalid Interpretation Code [facility] Comment on above: Result Comment: HDL > or equal to 60 mg/dL: Low cardiovascular risk HDL < 40 mg/dL : High cardiovascular risk Performed By: #### 7 [id number] #### [facility] [address] [place] [address] Cholesterol in LDL [Mass/Vol] 106 mg/dL Normal <=129 [facility] Comment on above: Performed By: #### 7 [id number] #### [facility] [address] [place] [address] Cholesterol in VLDL [Mass/Vol] 44 mg/dL High 7-40 [facility] Comment on above: Performed By: #### 7 [id number] #### [facility] [address] [place] [address] Triglyceride [Mass/Vol] 218 mg/dL High <=149 [facility] Comment on above: Performed By: #### 7 [id number] #### [facility] [address] [place] [address] TSHon 02-10-2023 TSH Qn 1.79 m[IU]/L Normal 0.34-5.60 [facility] Comment on above: Performed By: #### 7 [id number] #### [facility] [address] [place] [address] Vitamin D 25 Hydroxyon 02-10 25-hydroxyvitamin D3 [Mass/Vol] 52.9 ng/mL Normal 30.0-100.0 [facility] Comment on above: Result Comment: Vit rosario D deficiency has been defined as a level of serum 25-OH vitamin D less than 20 ng/mL (1,2) by the [place] [employer] and an Endocrine Society practice guideline. The Endocrine Society further defined vitamin D insufficiency as a level between 21 and 29 ng/mL (2). 1. IOM ([place] [employer]). 2010. Dietary reference intakes for calcium and D. [place]: The National Academies Press. 2. Laney MF, Abhijeet NC, Stacey CHATMAN, et al. Evaluation, treatment, and prevention of vitamin D deficiency: an Endocrine Society clinical practice guideline. JCEM. 2010; 96 (7):1911-30. Performed By: #### 7 [id number] #### [facility] [address] [place] [address] eGFRon 02-10-2023 GFR/1.73 sq M.predicted among non-blacks MDRD (S/P/Bld) [Vol rate/Area] 39 mL/min/1.73 m2 Low >=59 [facility] Comment on above: Order Comment: Order added by Discern Expert. Result Comment: [employer] Operator saba kidney disease could be indicated at eGFR's of less than 60 mL/min/1.73m2. Kidney failure is indicated at less than 15 mL/min/1.73m2. Performed By: #### 7 [id number] #### [facility] [address] [place] [address] XR hip LT 1Von 12-04-2022 XR hip LT 1V [facility] Main [address] [address] XRay Report Signed Patient: Lexi Spence MR#: [id number] : 1945 Acct:[id number] Age/Sex: 77 / F ADM Date: 12/04/22 Loc: [facility] Room: Type: [facility] CLI Attending Dr: Da Lozano [...] Zayra Juarez M.D.12/04/2022 6:42 PM Dictation Location: [place] [address] Transcribed By: [facility] 12/04/221841 Dictated By: Zayra Juarez MD 12/04/221840 Signed By: 12/04/221841 Normal [facility] XR hip LT min 2V(w/wo pelvis )*on 11-12-2022 XR hip LT min 2V(w/wo pelvis)* [facility] Main [address] [address] XRay Report Signed Patient: Lexi Spence MR#: [id number] : 1945 Acct:[id number] Age/Sex: 77 / F ADM Date: 11/11/22 Loc: [facility]: Ross Colmenares MD Copies to: Ross Colmenares MD Ordering Provider: Ross Colmenares MD Date of Service: 11/11/22 XR/XR lumbar spine AP/LAT/FLX/EXT: Other spondylosis with radiculopathy, lumbar region ([id number]) XR/XR hip LT min 2V(w/wo pelvis)*: PAIN [...] Iraheta Jr., D.O.11/12/2022 12:06 PM Dictation Location: [place] [address] Transcribed By: [facility] 11/12/22 1206 Dictated By: Earnest Iraheta Jr, DO 11/12/22 1159 Signed By: 11/12/22 1206 [place] Office Visit (Cardiology)on 07-25-2022 Follow-up visit Diagnoses/Problems Assessed S/P CABG x 3 (V45.81) (Z95.1) Ischemic cardiomyopathy (414.8) (I25.5) Hyperlipidemia (272.4) (E78.5) HTN (hypertension) (401.9) (I10) History of angioplasty (V45.89) (Z98.62) History of Dyslipidemia (272.4) (E78.5) CAD, multiple vessel (414.00) (I25.10) History of PR (myocardial infarction) (412) (I25.2) Statin intolerance (995.27) [...] - Retrospective Authorization; Done: 25Jul2022 History of PR (myocardial infarction), HTN (hypertension) Renew: Carvedilol 25 [...] History of angioplasty (V45.89) (Z98.62) History of PR (myocardial infarction) (412) (I25.2) HTN (hypertension) (401.9) [...] 023 Adult depression screening assessment No [facility] 250 DO Work Phone: Fall risk assessment a) No falls within the last year [facility] 250 DO Work Phone: Tobacco use status CPHS b) No [facility] 250 DO Work Phone: CBC AUTO DIFFon 01-30-2022 BASO # 0.0 103/ul Normal 0.0-0.[address] [facility] Comment on above: Performed By: #### C BC #### [facility] [address] [place] [address] Dr. Yarely Roe Basophils/100 WBC (Bld) 0.4 % Normal 0.2-2.[address] [facility] Comment on above: Performed By: #### C BC #### [facility] [address] [place] [address] [address] Yarely Roe EO # 0.2 103/ul Normal 0.0-0.7 [facility] Comment on above: Performed By: #### C BC #### [facility] [address] [place] [address] [address] Yarely Roe Eosinophils/100 WBC (Bld) 2.3 % Normal 0.9-7.0 [facility] Comment on above: Performed By: #### C BC #### [facility] [address] [place] [address] Dr. Yarely Roe Erythrocyte distribution width (RBC) [Ratio] 14.8 % Normal 11.0-15.[address] [facility] Comment on above: Performed By: #### C BC #### [facility] [address] [place] [address] Dr. Yarely Roe Hematocrit (Bld) [Volume fraction] 42.0 % Normal 36.0-48.[address] [facility] Comment on above: Performed By: #### C BC #### [facility] [address] [place] [address] Dr. Yarely Roe Hemoglobin (Bld) [Mass/Vol] 13.7 g/dL Normal 12.0-16.[address] [facility] Comment on above: Performed By: #### C BC #### [facility] [address] [place] [address] Dr. Yarely Roe IG # 0.03 10e3/ul Normal 0.00-0.[address] [facility] Comment on above: Performed By: #### C BC #### [facility] [address] [place] [address] Dr. Yarely Roe IG % 0.4 % Normal 0.0-0.[address] [facility] Comment on above: Performed By: #### C BC #### [facility] [address] [place] [address] Dr. Yarely Roe LYMPH # 1.7 103/ul Normal 1.2-3.[address] [facility] Comment on above: Performed By: #### C BC #### [facility] [address] [place] [address] Dr. Yarely Roe Lymphocytes/100 WBC (Bld) 20.7 % Normal 20.5-60.[address] [facility] Comment on above: Performed By: #### C BC #### [facility] [address] [place] [address] Dr. Yarely Roe MANUAL DIFF REQ NO Normal [facility] Comment on above: Performed By: #### C BC #### [facility] [address] [place] [address] Dr. Yarely Roe MCH (RBC) [Entitic mass] 31.9 pg Normal 26.7-34.[address] [facility] Comment on above: Performed By: #### C BC #### [facility] [address] [place] [address] [address] Yarely Roe MCHC (RBC) [Mass/Vol] 32.6 g/dL Normal 29.9-35.2 [facility] Comment on above: Performed By: #### C BC #### [facility] [address] [place] [address] [address] Yarely Roe MCV (RBC) [Entitic vol] 97.7 fL Normal 81.0-99.0 [facility] Comment on above: Performed By: #### C BC #### [facility] [address] [place] [address] [address] Yarely Roe MONO # 0.5 103/ul Normal 0.3-0.[address] [facility] Comment on above: Performed By: #### C BC #### [facility] [address] [place] [address] Dr. Yarely Roe Monocytes/100 WBC (Bld) 5.9 % Normal 1.7-12.[address] [facility] Comment on above: Performed By: #### C BC #### [facility] [address] [place] [address] Dr. Yarely Roe NEUT # 5.7 103/ul Normal 1.4-6.[address] [facility] Comment on above: Performed By: #### C BC #### [facility] [address] [place] [address] Dr. Yarely Roe Neutrophils/100 WBC (Bld) 70.3 % Normal 43.0-75.0 [facility] Comment on above: Performed By: #### C BC #### [facility] [address] [place] [address] Dr. Yarely Roe Platelet mean volume (Bld) [Entitic vol] 11.0 fL Normal 9.5-13.5 [facility] Comment on above: Performed By: #### C BC #### [facility] [address] [place] [address] Dr. Yarely Roe PLT 196 103/ul Normal 150-450 [facility] Comment on above: Performed By: #### C BC #### [facility] [address] [place] [address] [address] Yarely Roe RBC 4.30 106/ul Normal 4.20-5.40 [facility] Comment on above: Performed By: #### C BC #### [facility] [address] [place] [address] Dr. Yarely Roe WBC 8.1 103/ul Normal 4.0-11.0 [facility] Comment on above: Performed By: #### C BC #### [facility] [address] [place] [address] Dr. Yarely Roe GLYCOHEMOGLOBIN A1Con 2021 ADA RECOMMENDATION SEE BELOW Normal [facility] Comment on above: Result Comment: ADA RECOMMENDED LIMIT 4.0 - 6.0 ADA THERAPEUTIC TARGET < 7.0 ACTION SUGGESTED > 7.0 Performed By: #### A 1C #### [facility] [address] [place] [address] Dr. Yarely Roe Glucose [Mass/Vol] 223 mg/dL Normal [facility] Comment on above: Performed By: #### A 1C #### [facility] [address] [place] [address] Dr. Yarely Roe HbA1c (Bld) [Mass fraction] 9.4 % Critically high 4.5-6.[address] [facility] Comment on above: Performed By: #### A 1C #### [facility] [address] [place] [address] Dr. Yarely Roe PROF CHEM 8 (BAS METB)on Anion gap [Moles/Vol] 13.4 mmol/L Normal [facility] Comment on above: Performed By: #### B MP #### [facility] [address] [place] [address] Dr. Yarely Roe Calcium [Mass/Vol] 9.5 mg/dL Normal 8.5-10.1 [facility] Comment on above: Performed By: #### B MP #### [facility] [address] [place] [address] Dr. Yarely Roe Chloride [Moles/Vol] 101 mmol/L Normal 98-107 [facility] Comment on above: Performed By: #### B MP #### [facility] [address] [place] [address] [address] Yarely Roe CO2 [Moles/Vol] 28.6 mmol/L Normal 21.0-32.[address] [facility] Comment on above: Performed By: #### B MP #### [facility] [address] [place] [address] [address] Yarely Roe Creatinine [Mass/Vol] 1.46 mg/dL Critically high 0.55-1.[address] [facility] Comment on above: Performed By: #### B MP #### [facility] [address] [place] [address] [address] Yarely Roe EGFR-AF MONTENEGRIN 42 mL/min/1.73m2 Critically low >=[address] [facility] Comment on above: Performed By: #### B MP #### [facility] [address] [place] [address] [address] Yarely Roe EGFR-NON AF MONTENEGRIN 35 mL/min/1.73m2 Critically low >=[address] [facility] Comment on above: Performed By: #### B MP #### [facility] [address] [place] [address] [address] Yarely Roe Glucose [Mass/Vol] 288 mg/dL Critically high 74-106 [facility] Comment on above: Performed By: #### B MP #### [facility] [address] [place] [address] [address] Yarely Roe Potassium [Moles/Vol] 4.0 mmol/L Normal 3.5-5.[address] [facility] Comment on above: Performed By: #### B MP #### [facility] [address] [place] [address] [address] Yarely Roe Sodium [Moles/Vol] 139 mmol/L Normal 136-[address] [facility] Comment on above: Performed By: #### B MP #### [facility] [address] [place] [address] [address] Yarely Roe Urea nitrogen [Mass/Vol] 27.0 mg/dL Critically high 7.0-18.[address] [facility] Comment on above: Performed By: #### B MP #### [facility] [address] [place] [address] [address] Yarely Roe Urea nitrogen/Creatinin e [Mass ratio] 18.5 mg/mg Normal [facility] Comment on above: Performed By: #### B MP #### [facility] [address] [place] [address] [address] Yarely Roe PROF CHEM 8 (BAS METB)on Anion gap [Moles/Vol] 11.9 mmol/L Normal [facility] Comment on above: Performed By: #### B MP #### [facility] [address] [place] [address] [address] Yarely Roe Calcium [Mass/Vol] 9.1 mg/dL Normal 8.5-10.[address] [facility] Comment on above: Performed By: #### B MP #### [facility] [address] [place] [address] Dr. Yarely Roe Chloride [Moles/Vol] 100 mmol/L Normal 98-[address] [facility] Comment on above: Performed By: #### B MP #### [facility] [address] [place] [address] [address] Yarely Roe CO2 [Moles/Vol] 30.8 mmol/L Normal 21.0-32.[address] [facility] Comment on above: Performed By: #### B MP #### [facility] [address] [place] [address] [address] Yarely Roe Creatinine [Mass/Vol] 1.27 mg/dL Critically high 0.55-1.[address] [facility] Comment on above: Performed By: #### B MP #### [facility] [address] [place] [address] [address] Yarely Roe EGFR-AF MONTENEGRIN 50 mL/min/1.73m2 Critically low >=60 [facility] Comment on above: Performed By: #### B MP #### [facility] [address] [place] [address] [address] Yarely Roe EGFR-NON AF MONTENEGRIN 41 mL/min/1.73m2 Critically low >=60 [facility] Comment on above: Performed By: #### B MP #### [facility] [address] [place], [place] [address] Dr. Yarely Roe Glucose [Mass/Vol] 166 mg/dL Critically high 74-106 [facility] Comment on above: Performed By: #### B MP #### [facility] [address] [place], [place] [address] Dr. Yarely Roe Potassium [Moles/Vol] 3.7 mmol/L Normal 3.5-5.[address] [facility] Comment on above: Performed By: #### B MP #### [facility] [address] [place] [address] [address] Yarely Roe Sodium [Moles/Vol] 139 mmol/L Normal 136-[address] [facility] Comment on above: Performed By: #### B MP #### [facility] [address] [place] [address] [address] Yarely Roe Urea nitrogen [Mass/Vol] 20.0 mg/dL Critically high 7.0-18.[address] [facility] Comment on above: Performed By: #### B MP #### [facility] [address] [place], [place] [address] Dr. Yarely Roe Urea nitrogen/Creatinin e [Mass ratio] 15.7 mg/mg Normal [facility] Comment on above: Performed By: #### B MP #### [facility] [address] [place] [address] [address] Yarely Roe Office Visit (Cardiology)on 11-02-2021 Follow-up visit Diagnoses/Problems Assessed Hyperlipidemia (272.4) (E78.5) Ischemic cardiomyopathy (414.8) (I25.5) HTN (hypertension) (401.9) (I10) History of PR (myocardial infarction) (412) (I25.2) CAD, multiple vessel [...] Metabolic Panel; Status:Active - Retrospective Authorization; Requested for:[id number]; CAD, multiple vessel, Hyperlipidemia Renew: Rosuvastatin Calcium [...] 2:24:53 PM (more content not included)... Normal [employer] Tobacco Screening.on 022 Adult depression screening assessment No -[facility] 250 DO Work Phone: Fall risk assessment a) No falls within the last year [facility] [place] 250 DO Work Phone: Tobacco use status CPHS b) No [facility] [place] 250 DO Work Phone: XR LSPINE MIN [...] Vascular calcifications. Right pelvic vascular stent. IMPRESSION: [id number] degenerative changes with minimal anterolisthesis of L4 and L5 Electronically authenticated by: ALISSA RAMIREZ Date: 2021-10-16 07:05 Normal [facility] CBC AUTO DIFFon 10-15-2021 BASO # 0.0 103/ul Normal 0.0-0.[address] [facility] Comment on above: Performed By: #### C BC #### [facility] [address] [place] [address] Dr. Yarely Roe Basophils/100 WBC (Bld) 0.3 % Normal 0.2-2.0 [facility] Comment on above: Performed By: #### C BC #### [facility] [address] [place] [address] [address] Yarely Roe EO # 0.3 103/ul Normal 0.0-0.7 [facility] Comment on above: Performed By: #### C BC #### [facility] [address] [place] [address] [address] Yarely Roe Eosinophils/100 WBC (Bld) 3.4 % Normal 0.9-7.0 [facility] Comment on above: Performed By: #### C BC #### [facility] [address] [place] [address] Dr. Yarely Roe Erythrocyte distribution width (RBC) [Ratio] 15.1 % Critically high 11.0-15.[address] [facility] Comment on above: Performed By: #### C BC #### [facility] [address] [place] [address] Dr. Yarely Roe Hematocrit (Bld) [Volume fraction] 42.1 % Normal 36.0-48.[address] [facility] Comment on above: Performed By: #### C BC #### [facility] [address] [place] [address] Dr. Yarely Roe Hemoglobin (Bld) [Mass/Vol] 13.5 g/dL Normal 12.0-16.[address] [facility] Comment on above: Performed By: #### C BC #### [facility] [address] [place] [address] Dr. Yarely Roe IG # 0.04 10e3/ul Critically high 0.00-0.[address] [facility] Comment on above: Performed By: #### C BC #### [facility] [address] [place] [address] Dr. Yarely Roe IG % 0.4 % Normal 0.0-0.[address] [facility] Comment on above: Performed By: #### C BC #### [facility] [address] [place] [address] Dr. Yarely Roe LYMPH # 2.1 103/ul Normal 1.2-3.[address] [facility] Comment on above: Performed By: #### C BC #### [facility] [address] [place] [address] Dr. Yarely Roe Lymphocytes/100 WBC (Bld) 22.9 % Normal 20.5-60.[address] [facility] Comment on above: Performed By: #### C BC #### [facility] [address] [place] [address] Dr. Yarely Roe MANUAL DIFF REQ NO Normal [facility] Comment on above: Performed By: #### C BC #### [facility] [address] [place] [address] Dr. Yarely Roe MCH (RBC) [Entitic mass] 31.5 pg Normal 26.7-34.[address] [facility] Comment on above: Performed By: #### C BC #### [facility] [address] [place] [address] [address] Yarely Roe MCHC (RBC) [Mass/Vol] 32.1 g/dL Normal 29.9-35.2 [facility] Comment on above: Performed By: #### C BC #### [facility] [address] [place] [address] [address] Yarely Roe MCV (RBC) [Entitic vol] 98.1 fL Normal 81.0-99.[address] [facility] Comment on above: Performed By: #### C BC #### [facility] [address] [place] [address] [address] Yarely Roe MONO # 0.6 103/ul Normal 0.3-0.[address] [facility] Comment on above: Performed By: #### C BC #### [facility] [address] [place] [address] Dr. Yarely Roe Monocytes/100 WBC (Bld) 6.1 % Normal 1.7-12.[address] [facility] Comment on above: Performed By: #### C BC #### [facility] [address] [place] [address] Dr. Yarely Roe NEUT # 6.2 103/ul Normal 1.4-6.[address] [facility] Comment on above: Performed By: #### C BC #### [facility] [address] [address] [address] Yarely Roe Neutrophils/100 WBC (Bld) 66.9 % Normal 43.0-75.0 [facility] Comment on above: Performed By: #### C BC #### [facility] [address] [address] [address] Yarely Roe Platelet mean volume (Bld) [Entitic vol] 10.9 fL Normal 9.5-13.5 [facility] Comment on above: Performed By: #### C BC #### [facility] [address] [address] [address] Yarely Roe PLT 220 103/ul Normal 150-450 [facility] Comment on above: Performed By: #### C BC #### [facility] [address] [place] [address] Dr. Yarely Roe RBC 4.29 106/ul Normal 4.20-5.40 [facility] Comment on above: Performed By: #### C BC #### [facility] [address] [place] [address] Dr. Yarely Roe WBC 9.2 103/ul Normal 4.0-11.0 [facility] Comment on above: Performed By: #### C BC #### [facility] [address] [place] [address] Dr. Yarely Roe GLYCOHEMOGLOBIN A1Con 2021 ADA RECOMMENDATION ADA THERAPEUTIC TARGET 6.0 - 7.0 ACTION SUGGESTED > 7.[address] [facility] Comment on above: Performed By: #### A 1C #### [facility] [address] [place] [address] Dr. Yarely Roe Glucose [Mass/Vol] 183 mg/dL Normal [facility] Comment on above: Performed By: #### A 1C #### [facility] [address] [place] [address] Dr. Yarely Roe HbA1c (Bld) [Mass fraction] 8.0 % Critically high <=6.0 [facility] Comment on above: Performed By: #### A 1C #### [facility] [address] [place] [address] Dr. Yarely Roe PROF 14(COMP METB)on 022 Albumin [Mass/Vol] 3.4 g/dL Normal 3.4-5.[address] [facility] Comment on above: Performed By: #### C MP #### [facility] [address] [place] [address] Dr. Yarely Roe Albumin/Globulin [Mass ratio] 0.8 {ratio} Normal [facility] Comment on above: Performed By: #### C MP #### [facility] [address] [place] [address] Dr. Yarely Roe ALP [Catalytic activity/Vol] 59 U/L Normal 46-116 [facility] Comment on above: Performed By: #### C MP #### [facility] [address] [address] [address] Yarely Roe ALT [Catalytic activity/Vol] 9 U/L Critically low 14-59 [facility] Comment on above: Performed By: #### C MP #### [facility] [address] [place] [address] Dr. Yarely Roe Anion gap [Moles/Vol] 11.3 mmol/L Normal [facility] Comment on above: Performed By: #### C MP #### [facility] [address] [address] [address] Yarely Roe AST [Catalytic activity/Vol] 15 U/L Normal 15-37 [facility] Comment on above: Performed By: #### C MP #### [facility] [address] [place] [address] Dr. Yarely Roe Bilirubin [Mass/Vol] 0.3 mg/dL Normal 0.2-1.3 [facility] Comment on above: Performed By: #### C MP #### [facility] [address] [place] [address] Dr. Yarely Roe Calcium [Mass/Vol] 9.4 mg/dL Normal 8.5-10.1 [facility] Comment on above: Performed By: #### C MP #### [facility] [address] [place] [address] Dr. Yarely Roe Chloride [Moles/Vol] 97 mmol/L Critically low 98-107 [facility] Comment on above: Performed By: #### C MP #### [facility] [address] [place] [address] Dr. Yarely Roe CO2 [Moles/Vol] 33.0 mmol/L Critically high 22.0-30.0 [facility] Comment on above: Performed By: #### C MP #### [facility] [address] [place] [address] Dr. Yarely Roe Creatinine [Mass/Vol] 1.40 mg/dL Critically high 0.52-1.04 [facility] Comment on above: Performed By: #### C MP #### [facility] [address] [place] [address] Dr. Yarely Roe EGFR-AF MONTENEGRIN 44 mL/min/1.73m2 Critically low >=[address] [facility] Comment on above: Performed By: #### C MP #### [facility] [address] [address] [address] Yarely Roe EGFR-NON AF MONTENEGRIN 37 mL/min/1.73m2 Critically low >=[address] [facility] Comment on above: Performed By: #### C MP #### [facility] [address] [address] [address] Yarely Roe Globulin (S) [Mass/Vol] 4.3 g/dL Normal [facility] Comment on above: Performed By: #### C MP #### [facility] [address] [address] [address] Yarely Roe Glucose [Mass/Vol] 224 mg/dL Critically high 74-106 [facility] Comment on above: Performed By: #### C MP #### [facility] [address] [address] [address] Yarely Roe Potassium [Moles/Vol] 3.3 mmol/L Critically low 3.4-5.[address] [facility] Comment on above: Performed By: #### C MP #### [facility] [address] [place] [address] Dr. Yarely Roe Protein [Mass/Vol] 7.7 g/dL Normal 6.1-8.[address] [facility] Comment on above: Performed By: #### C MP #### [facility] [address] [address] [address] Yarely Roe Sodium [Moles/Vol] 138 mmol/L Normal 137-[address] [facility] Comment on above: Performed By: #### C MP #### [facility] [address] [address] [address] Yarely Roe Urea nitrogen [Mass/Vol] 27.0 mg/dL Critically high 7.0-18.[address] [facility] Comment on above: Performed By: #### C MP #### [facility] [address] [place] [address] Dr. Yarely Roe Urea nitrogen/Creatinin e [Mass ratio] 19.3 mg/mg Normal [facility] Comment on above: Performed By: #### C #### [facility] [address] [address] [address] Yarely Roe [facility] Carotid Artery Dupl ex Ultrasounon 05-08-2020 [facility] Carotid Artery Duplex Ultrasoun [address], [address], [place] [address] Vascular Lab Report Carotid Artery Duplex Ultrasound Patient Name: LEXI CASTILLO Reading Physician: [id number] Charlotte Cordon MD, [facility] Study Date: 05/08/2020 Referring Physician: [id number] Tom Ruano MD MRN/PID: [id number] PCP: Li Lee Accession/Order#: [id number] CC Report to: Date of : 1945 Technologist: Surekha Hartley RD, T Gender: F Technologist 2: Admission Status: Outpatient [facility] Per[facility] Diagnosis/ICD: R09.89-Other specified symptoms and signs involving the circulatory and respiratory systems Indication: Diabetes, Hyperlipidemia, Former Smoker, Vertigo, CAD, CABG, Ischemic Cardiomyopathy, PTCA, PR, Obesity Procedure/CPT: 63756 Cerebrovascular Carotid Duplex scan complete-[id number] CONCLUSIONS: Right Carotid: Findings are consistent with [...] cm/s Right Left ICA/CCA Ratio 2.2 0.9 [id number] Charlotte Cordon MD, FACC Final Normal [facility] HEMOGLOBIN A1Con 06-17-2019 HbA1c (Bld) [Mass fraction] 7.5 % Normal [facility] Comment on above: Result Comment: Diag nosis of Diabetes-Adults Non-Diabetic: < or = 5.6% Increased risk for developing diabetes: 5.7-6.4% Diagnostic of diabetes: > or = 6.5% . Monitoring of Diabetes Age (y) Therapeutic Goal (%) Adults: >18 <7.0 Pediatrics: 13-18 <7.5 7-12 <8.0 0- 6 7.5-8.5 [employer]. Diabetes Care 33(S1), Jul 2009. Performed By: #### H BA1E #### [facility] [address] [place] [address] HbA1c (Bld) [Mass fraction] 169 MG/DL Normal [facility] Comment on above: Performed By: #### H BA1E #### [facility] [address] [place] [address] Anthony 06-16-2019 AST [Catalytic activity/Vol] 18 U/L Normal 9 - 39 [facility] Comment on above: Order Comment: Patiben nt states she had black coffee this a.m. Performed By: #### A ST #### [address] [address] COMPREHENSIVE PANELon 2018 Albumin [Mass/Vol] 4.1 g/dL Normal 3.4 - 5.0 [facility] Comment on above: Performed By: #### C MP #### [address] [address] ALP [Catalytic activity/Vol] 62 U/L Normal 33 - 136 [facility] Comment on above: Performed By: #### C MP #### [address] [address] ALT [Catalytic activity/Vol] 12 U/L Normal 7 - 45 [facility] Comment on above: Result Comment: Yareli ents treated with Sulfasalazine may generate falsely decreased results for ALT. Performed By: #### C MP #### [address] [address] Anion gap [Moles/Vol] 13 mmol/L Normal 10 - 20 [facility] Comment on above: Performed By: #### C MP #### [address] [address] AST [Catalytic activity/Vol] 16 U/L Normal 9 - 39 [facility] Comment on above: Performed By: #### C MP #### [address] [address] Bilirubin [Mass/Vol] 0.5 mg/dL Normal 0.0 - 1.2 [facility] Comment on above: Performed By: #### C MP #### [address] [address] Calcium [Mass/Vol] 9.8 mg/dL Normal 8.6 - 10.3 [facility] Comment on above: Performed By: #### C MP #### [address] [address] Chloride [Moles/Vol] 103 mmol/L Normal 98 - 107 [facility] Comment on above: Performed By: #### C MP #### [address] [address] Creatinine [Mass/Vol] 1.32 mg/dL High 0.50 - 1.05 [facility] Comment on above: Performed By: #### C MP #### [address] [address] GFR- AM. 47 mL/min/1.73m2 Abnormal >60 [facility] Comment on above: Result Comment: CALC ULATIONS OF ESTIMATED GFR ARE PERFORMED USING THE MDRD STUDY EQUATION FOR THE IDMS-TRACEABLE CREATININE METHODS. CLIN CHEM 2007;53:766-72 Performed By: #### C MP #### [address] [address] GFR-NON AM. 39 mL/min/1.73m2 Abnormal >60 [facility] Comment on above: Performed By: #### C MP #### [address] [address] Glucose [Mass/Vol] 115 mg/dL High 74 - 99 [facility] Comment on above: Performed By: #### C MP #### [address] [address] HCO3 (Bld) [Moles/Vol] 25 mmol/L Normal 21 - 32 [facility] Comment on above: Performed By: #### C MP #### [address] [address] Potassium [Moles/Vol] 5.4 mmol/L High 3.5 - 5.3 [facility] Comment on above: Performed By: #### C MP #### [address] [address] Protein [Mass/Vol] 7.5 g/dL Normal 6.4 - 8.2 [facility] Comment on above: Performed By: #### C MP #### [address] [address] Sodium [Moles/Vol] 136 mmol/L Normal 136 - 145 [facility] Comment on above: Performed By: #### C MP #### [address] [address] Urea nitrogen [Mass/Vol] 40 mg/dL High 6 - 23 [facility] Comment on above: Performed By: #### C MP #### [address] [address] LIPID PANEL (CORONARY RISK 2 )on 06-16-2019 Cholesterol [Mass/Vol] 182 mg/dL Normal 0 - 199 [facility] Comment on above: Order Comment: Desean hernandez [...] dosing. Performed By: #### L IPID #### [address] [address] Cholesterol in HDL [Mass/Vol] 39.0 mg/dL Abnormal [facility] Comment on above: Order Comment: Desean hernandez states she had black coffee this a.m. Result Comment: . AGE VERY LOW LOW NORMAL HIGH 0-19 Y < 35 < 40 40-45 ---- 20-24 Y ---- < 40 >45 ---- >24 Y ---- < 40 40-60 >60 . Performed By: #### L IPID #### [address] [address] Cholesterol in LDL [Mass/Vol] 92 mg/dL Normal 0 - 99 [facility] Comment on above: Order Comment: Desean hernandez states she had black coffee this a.m. Result Comment: . NEAR BORD AGE DESIRABLE OPTIMAL HIGH HIGH VERY HIGH 0-19 Y 0 - 109 --- 110-129 >/= 130 ---- 20-24 Y 0 - 119 --- 120-159 >/= 160 ---- >24 Y 0 - 99 100-129 130-159 160-189 >/=190 . Performed By: #### L IPID #### [address] [address] Cholesterol in VLDL [Mass/Vol] 51 mg/dL High 0 - 40 [facility] Comment on above: Order Comment: Desean hernandez states she had black coffee this a.m. Performed By: #### L IPID #### [address] [address] Cholesterol.total/ Cholesterol in HDL [Mass ratio] 4.7 {ratio} Normal [facility] Comment on above: Order Comment: Desean hernandez states she had black coffee this a.m. Result Comment: REF VALUES DESIRABLE < 3.4 HIGH RISK > 5.0 Performed By: #### L IPID #### [address] [address] NON-HDL CHOLESTEROL 143 mg/dL Normal [facility] Comment on above: Order Comment: Desean hernandez states she had black coffee this a.m. Result Comment: AGE DESIRABLE BORDERLINE HIGH HIGH VERY HIGH 0-19 Y 0 - 119 120 - 144 >/= 145 >/= 160 20-24 Y 0 - 149 150 - 189 >/= 190 ---- >24 Y 30 MG/DL ABOVE LDL CHOLESTEROL GOAL . Performed By: #### L IPID #### [address] [address] Triglyceride [Mass/Vol] 255 mg/dL High 0 - 149 [facility] Comment on above: Order Comment: Desean hernandez [...] dosing. Performed By: #### L IPID #### [address] [address] Vital Signs Date Time Vital Sign Value Performing Clinician Facility 10-14-2023 13:33-0400 Diastolic blood pressure 68 mm[Hg] Margie 1 [facility] 10-14-2023 13:33-0400 Heart rate 78 /min Margie 1 [facility] 10-14-2023 13:33-0400 Systolic blood pressure 108 mm[Hg] Margie 1 [facility] 09-17-2023 13:07-0500 Body height 149.9 cm Tom Ruano MD Work Phone: [facility] 09-17-2023 13:07-0500 Body mass index (BMI) [Ratio] 33.33 kg/m2 Tom Ruano MD Work Phone: [facility] 09-17-2023 13:07-0500 Body weight 74.84 kg Tom Ruano MD Work Phone: [facility] 09-17-2023 13:07-0500 Diastolic blood pressure 70 mm[Hg] Tom Ruano MD Work Phone: [facility] 09-17-2023 13:07-0500 Heart rate 84 /min Tom Ruano MD Work Phone: [facility] 09-17-2023 13:07-0500 Systolic blood pressure 116 mm[Hg] Tom Ruano MD Work Phone: [facility] 09-09-2023 15:18-0500 Body height 149.86 cm [facility] 09-09-2023 15:18-0500 Body mass index (BMI) [Ratio] 33.3 kg/m2 [facility] 09-09-2023 15:18-0500 Body weight 74.84 kg [facility] 09-09-2023 15:18-0500 Diastolic blood pressure 74 mm[Hg] [facility] 09-09-2023 15:18-0500 Heart rate 86 /min [facility] 09-09-2023 15:18-0500 Systolic blood pressure 117 mm[Hg] [facility] 08-13-2023 13:00-0500 Body height Da Lozano II Other [employer] Other 08-13-2023 13:00-0500 Body height 149.86 cm [facility] 11-12-2022 15:30-0400 Body height Ross Colmenares Other [employer] Other 11-12-2022 15:30-0400 Body mass index (BMI) [Ratio] 33.32 kg/m2 Ross Colmenares Other [employer] Other 11-12-2022 15:30-0400 Body weight 74.84 kg Ross Colmenares Other [employer] Other 07-25-2022 15:55-0500 Body height 149.86 cm Li Lee Work Phone: [facility]Wtsxgpnmpz-Jfdugrs y 250 DO Work Phone: 07-25-2022 15:55-0500 Body mass index (BMI) [Ratio] 34.94 kg/m2 Li Lee Work Phone: OC-Luuxbuohwb-Nkywzgp y 250 DO Work Phone: 07-25-2022 15:55-0500 Body surface area Derived from formula 1.73 m2 Li Lee Work Phone: KH-Zuagkoibpb-Ozrevqc y 250 DO Work Phone: 07-25-2022 15:55-0500 Body weight 78.47 kg Li Lee Work Phone: JF-Smlijtjlih-Zkjmnom y 250 DO Work Phone: 07-25-2022 15:55-0500 Diastolic blood pressure 80 mm[Hg] Li Lee Work Phone: GR-Auojjmrmsh-Dbhzdlx y 250 DO Work Phone: 07-25-2022 15:55-0500 Heart rate 66 /min Li Lee Work Phone: OR-Nabxizzvyv-Plnmilt y 250 DO Work Phone: 07-25-2022 15:55-0500 Systolic blood pressure 120 mm[Hg] Li Lee Work Phone: IX-Tevtkigiew-Ntbffrm y 250 DO Work Phone: 11-02-2021 13:16-0400 Body height 149.86 cm Li Lee Work Phone: [facility] 250 DO Work Phone: 11-02-2021 13:16-0400 Body mass index (BMI) [Ratio] 34.54 kg/m2 Li Lee Work Phone: [facility] 250 DO Work Phone: 11-02-2021 13:16-0400 Body surface area Derived from formula 1.73 m2 Li Lee Work Phone: [facility] 250 DO Work Phone: 11-02-2021 13:16-0400 Body weight 77.57 kg Li Lee Work Phone: [facility] 250 DO Work Phone: 11-02-2021 13:16-0400 Diastolic blood pressure 80 mm[Hg] Li Lee Work Phone: [facility] 250 DO Work Phone: 11-02-2021 13:16-0400 Heart rate 66 /min Li Lee Work Phone: [facility] 250 DO Work Phone: 11-02-2021 13:16-0400 Systolic blood pressure 130 mm[Hg] Li Lee Work Phone: [facility] 250 DO Work Phone: Encounters Encounter Date Encounter Type Care Provider Facility Start: 11-19-2023 End: 11-20-2023 ambulatory Maxine L Shraddha Facility: [facility] Start: 10-23-2023 End: 10-23-2023 ambulatory [facility] Work Phone: Start: 10-23-2023 End: 10-23-2023 Patient encounter procedure [facility] Physician [facility] Work Phone: Start: 10-14-2023 End: 10-15-2023 ambulatory [facility] Start: 10-14-2023 End: 10-14-2023 Subsequent hospital visit by physician Margie Messina Stress Room 1 [facility] Comment on above: CAD, multiple vessel ; S/P CABG x 3; Ischemic cardiomyopathy; Occlusion and stenosis of right carotid artery; Shortness of breath Start: 09-17-2023 ambulatory Maxine L Shraddha Facility: [facility] Start: 09-17-2023 End: 09-17-2023 ambulatory [facility] Ambulatory Start: 09-17-2023 End: 09-17-2023 Patient encounter procedure [facility] Work Phone: Start: 09-17-2023 End: 09-17-2023 Office outpatient visit 25 minutes Tom Ruano MD Work Phone: [facility] Comment on above: CAD, multiple vessel (Primary Dx); S/P CABG x 3; History of angioplasty; Primary hypertension; Ischemic cardiomyopathy; Mixed hyperlipidemia; BMI 32.0-32.9,adult; Former smoker; Occlusion and stenosis of right carotid artery; Shortness of breath Start: 09-09-2023 End: 09-09-2023 Patient encounter procedure [facility] Physician [facility] Work Phone: Start: 09-08-2023 End: 09-09-2023 ambulatory Maxine L Shraddha Facility:[facility] Franca martines Start: 08-20-2023 End: 08-21-2023 ambulatory Maxine L Shraddha [facility] Start: 08-13-2023 End: 08-13-2023 ambulatory Da Rensselaer II Other [employer] Other Start: 08-13-2023 Office outpatient vi sit 15 minutes Da Rensselaer II [facility] Start: 08-13-2023 End: 08-13-2023 Patient encounter procedure [facility] Physician Group- Start: 05-21-2023 End: 05-22-2023 ambulatory Maxine L Shraddha Facility[facility] Start: 04-23-2023 (Procedure) [facility] Start: 04-23-2023 End: 04-23-2023 ambulatory Ross Fadiatyler Other [employer] Other Start: 04-07-2023 End: 04-07-2023 ambulatory Ross Colmenares Other [employer] Other Start: 04-07-2023 Telephone encounter Ross Colmenares [facility] Start: 03-27-2023 End: 03-27-2023 ambulatory Da Rensselaer II Other [employer] Other Start: 03-27-2023 Office outpatient vi sit 15 minutes Da Blake II [facility] Start: 03-25-2023 ambulatory Maxine L Shraddha Facility: [facility] [place] Start: 03-05-2023 End: 03-06-2023 ambulatory Maxine L Shraddha Facility:[facility] [place] Start: 02-10-2023 End: 02-11-2023 ambulatory Maxine L Shraddha Facility:[facility] Start: 02-10-2023 End: 02-10-2023 Lab Drop off Maxine L Shraddha [facility] Start: 02-05-2023 ambulatory Maxine L Shraddha Facility: [facility] [place] Start: 12-25-2022 (Procedure) R[facility] Start: 12-25-2022 End: 12-25-2022 ambulatory Ross Colmenares Other [facility] [place] Other Start: 12-04-2022 End: 12-04-2022 ambulatory Da Lozano II Facility:[facility] Start: 11-12-2022 End: 11-12-2022 ambulatory Ross Darrian Other [facility] [employer] Other Start: 11-12-2022 Office outpatient ne w 45 minutes Rsos Colmenares [facility] Start: 11-11-2022 End: 11-11-2022 ambulatory Ross Fadiatyler Facility:[facility] Start: 11-11-2022 End: 11-11-2022 ambulatory MD Li Lee Work Phone: [facility] Work Phone: Start: 11-11-2022 End: 11-11-2022 Patient encounter procedure MD Li Lee Work Phone: [facility] [place] [facility] Start: 10-09-2022 Rx Renewal Li Lee Work Phone: -[facility] 250 DO Work Phone: Start: 07-25-2022 Office outpatient vi sit 25 minutes Li Lee Work Phone: [facility] 250 DO Work Phone: Start: 07-25-2022 ambulatory Tom Ruano II Facility: Start: 07-10-2022 Rx Renewal Li Lee Work Phone: [facility] 250 DO Work Phone: Start: 01-30-2022 End: 01-31-[address] LI LEE Facility:[facility] Start: 12-19-2021 Encounter for genera l adult medical examination without abnormal findings DR TOM RUANO [facility] Start: 12-13-2021 End: 12-14-[address] LI LEE Facility:[facility] Start: 12-13-2021 End: 12-14-2021 Encounter for general adult medical examination without abnormal findings DR LI LEE Facility:[facility] Start: 11-02-2021 Office outpatient vi sit 25 minutes Li Lee Work Phone: [facility] 250 DO Work Phone: Start: 11-02-[address] LI LEE Facilit y:[facility] Start: 10-18-2021 End: 01-19-[address] LI LEE Facility:[facility] Start: 10-15-2021 End: 10-16-[address] LI LEE Facility:[facility] Start: 10-11-2021 Rx Renewal Li Lee Work Phone: [facility] 250 DO Work Phone: Start: 09-10-2021 Rx Renewal Li Lee Work Phone: [facility] 250 DO Work Phone: Start: 08-03-2021 AUDIT Li Lee Work Phone: [facility] 250 DO Work Phone: Start: 11-20-2017 Ambulatory BLAKE BOYLE Facility :[id number] Start: 09-04-2017 Ambulatory BLAKETALIA KUO Facility :[id number] Start: 04-07-2017 End: 04-08-2017 Ambulatory DEFAULT PHYSICIAN Facility:[facility] Patient encounter status Li Lee Work Phone: [facility] 250 DO Work Phone: Procedures Date Procedure [...] procedure 06/09/2024 11:30 AM EST Office Visit [facility] [address] [facility] [address] [place] [address] Jeimy Braun, FILAMENT CUTTER-METALLURGICAL ANALYST [address]03 [facility] [address] [place] [address] [facility] Start: 03-14-2024 Influenza vaccination Influenz a Vaccine (Season Ended) [facility] Start: 09-17-2023 End: 09-16-2025 NM Heart Perfusion W stress and W radionuclide IV Nuclear Stress Test Cardiac Nuclear Medicine Routine CAD, multiple vessel S/P CABG x 3 Ischemic cardiomyopathy Occlusion and stenosis of right carotid artery Shortness of breath Expected: 09/17/2023 (Approximate), Expires: 09/16/2025 [facility] Service Area Work Phone: Comment on above: Expected: 09/17/2023 (Approximate), Expires: 09/16/2025 Start: 01-10-2024 FUV, Provider: Tom Runao, Status: Pen, Time: 3:40 PM FUV, Provider: Tom Ruano, Status: Pen, Time: 3:40 PM [id number]-Ttxxic [place] 250 DO Work Phone: Start: 07-19-2023 Glaucoma screening Diabetes: R etinopathy Screening [facility] Start: 03-14-2023 COVID-19 Vaccine () COVID-19 Vaccine () [facility] Start: 03-14-2023 Influenza vaccination Influenza Vacc ine (#1) [facility] Start: 11-11-2022 X-ray of lumbar spin e, four views XR lumbar spine AP/LAT/FLX/EXT [facility] Start: 11-11-2022 Plain X-ray of left hip XR hip LT min 2V(w/wo pelvis)* [facility] Start: 11-11-2022 XR Hip - left 2 Views F [facility] Start: 07-25-2022 FUV, Provider: Tom Ruano, Status: Pen, Time: 3:30 PM FUV, Provider: Tom Ruano, Status: Pen, Time: 3:30 PM -[facility] Heart-[place] 250 DO Work Phone: Start: 04-19-2022 FUV, Provider: Tom Ruano, Status: Pen, Time: 3:20 PM FUV, Provider: Tom Ruano, Status: Pen, Time: 3:20 PM -[facility] Heart-[place] 250 DO Work Phone: Start: 11-02-2021 FUV, Provider: Tom Ruano, Status: Pen, Time: 1:15 PM FUV, Provider: Tom Ruano, Status: Pen, Time: 1:15 PM [facility] Heart-[place] 250 DO Work Phone: Start: 06-16-2020 Lipid panel Lipid Panel [facility] Start: 09-15-2019 Hemoglobin A1c measurement Diabetes: Hemoglobin A1C [facility] Start: 1995 Zoster Vaccines (1 o f 2) Zoster Vaccines (1 of 2) [facility] Start: 1967 DTaP/Tdap/Td Vaccine s (1 - Tdap) DTaP/Tdap/Td Vaccines (1 - Tdap) [facility] Start: 1964 Urine screening for protein Diabetes: Urine Protein Screening [facility] Start: 1963 Hepatitis C screening Hepatitis C Sc reening [facility] Start: 1955 Diabetic foot examination Diabetes: Foot Exam [facility] Start: 1945 Medicare Annual Wellness Visit Medicare Annual Wellness Visit (AWV) [facility] Start: 1945 Screening for osteoporosis Bone Density Scan [facility] Bacteria identified in Urine by Culture [facility] Patient Education Low back pain in adults [facility] Work Phone: [facility] Immunizations Immunization Date Immunization Notes Care Provider Fa cility 07-03-2022 Fluad Quadrivalent 0 .5 ML Intramuscular Prefilled Syringe Li Lee Work Phone: [facility] elias 250 DO Work Phone: 07-03-2022 influenza virus vacc ine, unspecified formulation Maxine Llanes [facility] [place] 07-03-2022 influenza, injectabl e, quadrivalent, contains preservative Tom Ruano MD Work Phone: [facility] Work Phone: 06-17-2022 Pfizer COVID-19 Vac Bivalent 30 MCG/0.3ML Intramuscular Suspension Li [facility] Comment on above: Result Comment: 2022: [id number] 04-13-2021 Pfizer-BioNTech COVI D-19 Vacc 30 MCG/0.3ML Intramuscular Suspension Li Lee Work Phone: [facility] [place] Comment on above: Result Comment: 2022: [id number] 08-30-2020 Pfizer-BioNTech COVI D-19 Vacc 30 MCG/0.3ML Intramuscular Suspension Li Lee Work Phone: [facility] Comment on above: Result Comment: 2022: [id number] 08-09-2020 Pfizer-BioNTech COVI D-19 Vacc 30 MCG/0.3ML Intramuscular Suspension Li Lee Work Phone: [facility] Comment on above: Result Comment: 2022: [id number] 07-01-2019 influenza virus vacc ine, unspecified formulation Maxine Shraddha [facility] 07-01-2019 influenza, injectabl e, quadrivalent, contains preservative Li Lee Work Phone: [facility] [employer] DO Work Phone: 07-14-2018 influenza virus vacc ine, unspecified formulation Li Lee Work Phone: [facility] 04-16-2018 influenza virus vacc ine, unspecified formulation Maxine Shraddha [facility] 04-16-2018 pneumococcal polysaccharide vaccine, 23 valent Li Lee Work Phone: [facility] 04-13-2018 influenza virus vacc ine, unspecified formulation Li Lee Work Phone: [facility] 250 DO Work Phone: 04-13-2018 pneumococcal conjuga te vaccine, 13 valent Li Lee Work Phone: [facility] 250 DO Work Phone: 05-16-2017 influenza virus vacc ine, unspecified formulation Maxine Shraddha [facility] 05-12-2017 influenza, high dose seasonal, preservative-free Li Lee Work Phone: [facility] [employer] DO Work Phone: 10-30-2016 pneumococcal conjuga te vaccine, 13 valent Li Lee Work Phone: [facility] 10-12-2016 pneumococcal polysaccharide vaccine, 23 valent Li Lee Work Phone: [facility] 250 DO Work Phone: 07-14-2011 influenza virus vacc ine, unspecified formulation Li Lee Work Phone: [facility] 250 DO Work Phone: Payers Date Payer Category Payer Medicare [id number] 2022 Self-pay [id number] 2022 Unknown 2010 Medicare [id number] 2010 Medicare MEDICARE MEDICAR E PART A AND B [id number] 2010-Present [address] [place] [address] [id number] 1959 Medicare [id number] 1959 Self-pay [id number] 1959 Unknown [id number] 1945 Unknown [id number] ..840.1.100413.3.579.2.593 1945 Unknown [id number] .16.840.1.701515.3.579.2.593 1945 Unknown [id number] 2.16.840.1.573227.3.579.2.593 1945 Unknown [id number] 2.16.840.1.341676.3.579.2.593 1945 Unknown [id number] 2.16.840.1.104237.3.579.2.593 1945 Unknown [id number] 2.16.840.1.145871.3.579.2.356 1945 Unknown [id number] 2.16.840.1.402758.3.579.2.356 1945 Unknown [id number] 2.16.840.1.767156.3.579.2.1244 1945 Unknown [id number] 2.16.840.1.834293.3.579.2.1246 1945 Unknown [id number] 2.16.840.1.608488.3.579.2.1246 1945 Unknown [id number] 2.16.840.1.860646.3.579.2.1246 1945 Unknown [id number] 2.16.840.1.939566.3.579.2.1246 1945 Unknown [id number] 2.16.840.1.951460.3.579.2.1246 1945 Unknown [id number] 2.16.840.1.060783.3.579.2.727 1945 Unknown [id number] 2.16.840.1.828483.3.579.2.727 1945 Unknown [id number] 2.16.840.1.539544.3.579.2.727 1945 Unknown [id number] 2.16.840.1.691337.3.579.2.727 1945 Unknown [id number] 2.16.840.1.095305.3.579.2.727 1945 Unknown [id number] 2.16.840.1.547118.3.579.2.727 1945 Unknown [id number] 2.16.840.1.215935.3.579.2.727 1945 Unknown [id number] 2.16.840.1.644359.3.579.2.727 1945 Unknown [id number] 2.16.840.1.440441.3.579.2.727 1945 Unknown [id number] 2.16.840.1.325415.3.579.2.727 1945 Unknown [id number] 2.16.840.1.880003.3.579.2.727 1945 Unknown [id number] 2.16.840.1.907582.3.579.2.727 1945 Unknown [id number] 2.16.840.1.917693.3.579.2.727 Medicare [id number] Unknown [id number] 2.16.840.1.150971.3.579.2.531 Unknown [id number] 2.16.840.1.931914.3.579.2.531 Social History Date Type Detail Facility Start: 07-08-2023 End: 09-17-2023 Former smoker Former smoker [facility] 250 DO Work Phone: Comment on above: Quit 17 years ago; Quit 25+ years ago; coffee occasionally soda, tea; Start: 08-06-2018 End: 07-08-2023 Tobacco smoking status AZIS Ex-smoker (finding) [facility] Start: 1945 Sex Assigned At Female [facility] Start: 07-08-2023 End: 09-17-2023 Sex Assigned At [facility] Tobacco smoking status Never Mina [facility] End: 07-14-1996 History of tobacco use Current smoker [facility] Work Phone: End: 07-14-1996 History of tobacco use Cigarette Smoker [facility] Work Phone: Start: 07-08-2023 Tobacco use and exposure Smoke less tobacco non-user [facility] Work Phone: Start: 09-17-2023 Alcohol intake Current drinke r of alcohol (finding) [facility] Work Phone: Start: 07-08-2023 Alcohol Comment occasional [facility] Work Phone: Start: 1945 Sex Assigned At Not on file [facility] Work Phone: Start: 09-07-2023 End: 10-14-2023 Exposure to SARS-CoV-2 (event) Not sure [facility] Start: 08-13-2023 Tobacco smoking stat us NHIS Never smoked tobacco (finding) [facility] Medical Equipment Procedure Code Equipment Code Equipment Origin al Text Equipment Identifier Dates AAA repair with graft GRAFT HEMASHIELD [id number] FDA Start: 07-20-2018 AAA repair with graft IR STENT SMART 9 X 40 120 CM FDA Start: 07-20-2018 AAA repair with graft GRAFT HEMASHIELD [id number] FDA Start: 07-20-2018 AAA repair with graft [...] normal. Allergies Williams inhibitors, Atorvastatin, Spironolactone, and Xhzkuzg-krf-gkp reductase inhibitors Current Medications Current Outpatient Medications: [...] direction and in the presence of Tom Ruano MD. Provider Attestation - Scribe documentation All medical record entries made by the Scribe were at my direction and personally dictated by me. I have reviewed the chart and agree that the record accurately reflects my personal performance of the history, physical exam, discussion and plan. documented in this encounter [facility] Work Phone: 09-17-2023 Instructions Kaleigh Funez LPN [...] of your visit. documented in this encounter [facility] Work Phone: 09-09-2023 Note [id number]#1.00[facility] 09-09-2023 Note [id number]#1.00[facility] 09-01-2023 Note [id number]#1.00[facility] 08-13-2023 Evaluation note Encounter Date Diagnosis Assessment Notes Jul, Primary osteoarthritis of left hip (ICD-10 - M16.12) Jul, Other We have provided her a few names of [facility] physicians that are currently taking new patients [...] can see her 3 months after that. [employer] Other 09-14-2023 Evaluation note* Encounter Date Diagnosis [...] is considering changing from her current PCP [employer] Other 05-02-2023 Evaluation note* Encounter Date Diagnosis [...] Above note written by Ramandeep Aggarwal LPN, [place]. Edited and approved by Dr. Ross Colmenares [...] negative findings were considered in medical decision-making. [employer] Other 05-01-2017 History general Narrative - Reported* Type Description Date Medical History PR Medical History Hyperlipiedmia Medical History PVD Medical History DM Medical History HTN Surgical History Open Heart 11/2016 Surgical History Cardiac Stent 09/2017 Surgical History Cardiac Stent 05/2017 Surgical History C- section 1960 Surgical History Rt iliac angioplasty & stent; Aortobiiliac bifurcation graft 07/20/18 Hospitalization History See above [place] [employer] Other Evaluation + Plan note Future Appointments Appointment Date:03/25/2023 01:00:00 PM Scheduled Provider: Location:[facility] Appointment Type:FM Medicare Wellness Subsequent [facility] assessment information available [facility] Work Phone: Evaluation noteNo InformationNort [employer] Other Evaluation note* Diagnosis CAD, multiple vessel- Primary S/P CABG x 3 Postsurgical aortocoronary bypass status History of angioplasty Primary hypertension Unspecified essential hypertension Ischemic cardiomyopathy Other specified forms of chronic ischemic heart disease Mixed hyperlipidemia BMI 32.0-32.9,adult Former smoker Personal history of tobacco use, presenting hazards to health Occlusion and stenosis of right carotid artery Shortness of breath documented in this encounter [facility] Work Phone: Evaluation note* Diagnosis CAD, multiple vessel S/P CABG x 3 Postsurgical aortocoronary bypass status Ischemic cardiomyopathy Other specified forms of chronic ischemic heart disease Occlusion and stenosis of right carotid artery Shortness of breath documented in this encounter [facility] Work Phone: Evaluation note* Diagnosis Onset Date Resolution Status Osteoarthritis of left hip a cute Type 2 diabetes mellitus with hyperglycemia acute UTI (urinary tract infection) acute Lumbar pain acute Osteoarthritis of left hip a cute Uncontrolled diabetes mellitus acute [facility] Work Phone: History of Present illness Narrative* [...] are reviewed and felt to be satisfactory. [facility] [employer] DO Work Phone: History of Present illness [...] are reviewed and felt to be satisfactory. [facility] [employer] [facility] Work Phone: History of Present illness [...] we suggest no change and follow-up as [id number]-[id number] 250 DO Work Phone: Hospital course Narrative No data available for this section [facility] Discharge instructions No data available for this section [facility] No data available for this section [facility] HospitalReason for referral (narrative)* Consultation (Routine) - Authorized Specialty Diagnoses / Procedures Referred By Dimitri hartley Referred To Contact Cardiology Diagnoses Occlusion and stenosis of right carotid artery Procedures Follow Up In Cardiology Tom Ruano MD [address] [place] [address] [address], [address] [address] Jeimy Braun APRN-ELLIOT [address] [place] [address] 2, [address] [address] Referral ID Status Reason Start Date Expiration Date V isits Requested Visits Authorized [id number] Authorized 09/17/2023 09/16/2024 1 1 * Cardiac Stress Testing (Routine) - Pending Review Specialty Diagnoses / Procedures Referred By Dimitri Referred To Contact Radiology Diagnoses CAD, multiple vessel S/P CABG x 3 Ischemic cardiomyopathy Occlusion and stenosis of right carotid artery Shortness of breath Procedures Nuclear Stress Test CHG MYOCARDIAL SPECT MULTIPLE STUDIES Tom Ruano MD [address] [place] [address] [address], [address] [address] Referral ID Status Reason Start Date Expiration Date V isits Requested Visits Authorized [id number] Pending Review 09/17/2023 09/16/2024 5 5 [facility] Work Phone: Reason for visit NarrativeNEW SELF REFERRAL [facility] [employer] [place] [employer] Other Summary Purpose Family History No Family [...] is of left hip (M16.12) Referral Organization [facility] [employer] Referring Provider First Name Ross Referring Provider Last Name Darrian Referring Provider Specialty Pain Medici ne Referred Organization [facility] [employer] Referred Provider Da Lozano II Referred Address [address] [facility] [place],[address] Referred Provider Specialty Orthopedic S urgery Referral [...] SPECT MULTIPLE STUDIES Tom Ruano MD [address] [facility] [address], [address] [place] [address] Referral ID Status Reason Start Date Expiration Date V isits Requested Visits Authorized [id number] Pending Review 09/17/2023 09/16/2024 5 5 Chief [...] section and content) DATE CREATED AUTHOR 12/31/2017 [facility] Healthcare DATE CREATED AUTHOR AUTHOR'S ORGANIZ ATION 01/07/2018 [facility] DATE CREATED AUTHOR AUTHOR'S ORGANIZ ATION 05/17/2020 [facility] DATE CREATED AUTHOR AUTHOR'S ORGANIZ ATION 02/14/2022 [facility] DATE CREATED AUTHOR AUTHOR'S ORGANIZ ATION 07/26/2022 [facility] DATE CREATED AUTHOR AUTHOR'S ORGANIZ ATION 07/26/2022 [employer] DATE CREATED AUTHOR AUTHOR'S ORGANIZ ATION 03/02/2023 [facility] DATE CREATED AUTHOR AUTHOR'S ORGANIZ ATION 10/16/2023 [facility] DATE CREATED AUTHOR AUTHOR'S ORGANIZ ATION 10/18/2023 [facility] DATE CREATED AUTHOR AUTHOR'S ORGANIZ ATION 11/21/2023 [facility] Care Teams (unrecognized sec tion and content) Team Status: Active Member Role Status Dates Li Lee MD Primary Care Provider Active Team Status: Inactive Member Role Status Dates Li Lee MD Primary Care Provider Active Ross Colmenares MD Attending Provider Active Child And Family Therapist Relationship Specialty Start Date End Date Tom Ruano MD [address] [facility] [address], [facility] [address] [place] [address] PCP - MSSP ACO Attributed Provider 01/11/23 Stefan Best MD [address] [place] [address] [place] [address] PCP - General Family Medicine 09/17/23 Child And Family Therapist Relationship Specialty Start Date End Date Tom Ruano MD [address] [facility] [address], [address] [place] [address] PCP - MSSP ACO Attributed Provider 01/11/23 Stefan Best MD [address] [place] [address] [place] [address] PCP - General Family Medicine 09/17/23 Child And Family Therapist Relationship Specialty Start Date End Date Tom Ruano MD [address] [facility] [address], [address] [place] [address] PCP - MSSP ACO Attributed Provider 01/11/23 Stefan Best MD [address] [place] [address] [place] [address] PCP - General Family Medicine 09/17/23 Child And Family Therapist Relationship Specialty Start Date End Date Tom Ruano MD [address] [facility] [address], [address] [place] [address] PCP - MSSP ACO Attributed Provider 01/11/23 Stefan Best MD [address] [place] [address] [place] [address] PCP - General Family Medicine 09/17/23 Child And Family Therapist Relationship Specialty Start Date End Date Tom Ruano MD [address] [facility] [address], [address] [place] [address] [facility] Attributed Provider 01/11/23 Stefan Best MD [address] [place] [address] [address] [place] [address] PCP - General Family Medicine 09/17/23 Team [...] SPECT MULTIPLE STUDIES Tom Ruano MD [address] [facility] [address], [address] [place] [address] Referral ID Status Reason Start Date Expiration Date V isits Requested Visits Authorized [id number] Pending Review 09/17/2023 09/16/2024 5 5 FOR [...] BE BASED ON THE PRIMARY CLINICAL RECORDS. [facility] [employer] [facility]. provides no warranty or guarantee of the accuracy or completeness of information in this document.
--- OUTSIDE RECORDS SUMMARY | 2023-11-22 10:49 | XMS_ITS | CCD ---
Author Organization [facility] Care Team Providers Care Air Control/Anti Air Warfare Officer Name Role Phone BLAKE KUO Unavailable Unavailable SHITAL, LI Unavailable Unavailable BLAKE KUO Unavailable Unavailable SHITAL, LI Unavailable Unavailable PHYSICIAN, DEFAULT Unavailable Unavailable PHYSICIAN, DEFAULT Unavailable Unavailable Li Lee Unavailable Unavailable Unavailable SHITAL, DR LI Conley Primary Care Unavailable LEE, DR LI Conley Admitting Unavailable LEE, DR LI Conley Attending Unavailable LEE, DR LI Conley Consulting Unavailable Primghar, DR Ren Consulting Unavailable LEE, DR LI [...] Care Provider MD Ross Colmenares Attending Provider [phone] Ross Colmenares Unavailable Maxine Llanes Primary Care Physician Da Lozano II Attending UnavailDa Aranda II Admitting UnavailLi Parker Primary Care Unavailable Ross Colmenares Admitting Unavailable Li Lee Primary Care Unavailable Ross Colmenares Attending Unavailable Da Lozano II Unavailable Tom Ruano MD Unavailable Stefan Best MD Primary Care Provider TOM [...] atorvastatin; Translations: [atorvastatin] Drug Allergy 3 Myalgia [facility] (13 sources) Hmg-Coa Reductase Inhibitors (Statins); Translations: [Statins] Allergy to drug (finding) Myalgia [facility] [employer] 250 DO Work Phone: (5 sources) rosuvastatin; Translations: [rosuvastatin] Drug Allergy Myalgia [facility] [employer] 250 DO Work Phone: (20 sources) Spironolactone; Translations: [spironolactone] Drug Allergy 3 Other [facility] [employer] 250 DO Work Phone: (1 source) Iodine (And Iodine Containting Drugs) Drug allergy (disorder) [facility] (1 source) Pravastatin Drug Allergy [facility] (2 sources) Simvastatin Drug Allergy [facility] (1 source) Sulfonamides (Antibiotic) Drug allergy (disorder) [facility] (6 sources) Adhesive Tape Drug allergy rash [email or web address] Other (2 sources) Pravastatin; Translations: [pravastatin] Drug Allergy Unknown [facility] (11 sources) Angiotensin-conv erting enzyme inhibitor agent Drug Allergy 3 Other [facility] (13 sources) HMG-CoA reductase inhibitor; Translations: [MMQSVVC-PFW-LFT REDUCTASE INHIBITORS] Drug Allergy 3 Myalgia [facility] Work Phone: Medications Current Medications Medication Drug [...] 02/05/23 Status: [facility] Aspirin 81 MG 1 [...] Start: 09-11-2017 take 1 capsule by mo [facility] once daily cholecalciferol 1000 intl [...] 2017 1:00am take 1 capsule by mo [facility] every twenty-four hours Colace 100 [...] Start: 06-15-2021 take 1 capsule by mo [facility] twice daily Gabapentin 300 MG [...] 25, 2017 11:51am take 1 capsule by [facility] every twenty-four hours Gabapentin 300 MG [...] Daily, # 15 mL, Refills(s) 2, Pharmacy: [facility]5, 140.6, cm, 02/10/23 11:29:00 EDT, Height/Length Dosing, 79.2, kg, 02/10/23 11:29:00 EDT, Weight Dosing Start Date: 02/10/23 Status: Ordered Start: 02-07-2023 Basaglar KwikP en 100 units/mL subcutaneous solution See Instructions, 50 units daily, # 15 mL, Refills(s) 0, Pharmacy: [place] [id number] Start Date: 02/07/23 Status: Ordered Start: 01-31-2021 [...] Daily, # 90 tab(s), Refills(s) 0, Pharmacy: [facility] 115, 140.6, cm, 02/10/23 11:29:00 EDT, Height/Length [...] Quantity: 60 Refills: 0 Ordered: 19-Dec-2016 [employer] ENAMEL SPRAYER-EXHIBITION ORGANISER, Veronica Active Multiple Vitamins/Minerals TABS (10 sources) [...] disease, unspecified; Translations: [Atherosclerotic heart disease of [place] coronary artery without angina pectoris] Onset: 8 [...] Unclassified (2 sources) Athscl heart disease of [place] coronary artery w/o ang pctrs / I25.10(ICD-9) [...] Home Health Recordson 2023 Home Health Records [id number] #1.00TIFF Normal [facility] NM Heart Perfusion W stress and W radionuclide [place] 10-14-2023 Abnormal Lexiscan Myoview cardiac perfusion stress test. No myocardial ischemia by perfusion imaging. No myocardial infarction by perfusion imaging. Abnormal left ventricular systolic function with mild global hypokinesis. Left ventricular ejection fraction 48 %. No previous studies are available for comparison. Signed by: Charlotte Cordon 10/14/2023 4:27 PM Dictation workstation: [id number] Interpreted By: Charlotte Cordon and Giannuzzi Michael STUDY: MYOCARDIAL PERFUSION STRESS TEST WITH LEXISCAN Performing facility: [facility], [address] [place] [address], [address] Provider: Joey Ruano MD, [facility] PCP: Dr. Marsha Best Supervising provider: Joey Cobb DO, [facility] INDICATION: CAD; CABG ICM SOB; HISTORY: Gender: F; Age: 78 y/o ; Height: HT 149.9 cm cm; Weight: WT 74.844 kg kg. High Cholesterol; CAD; Diabetes; Previous [place]; HTN; SOB; Quit smoking 27 years ago. Cardiac catheterization on 2016. PTCA on 2016. CABG on 2016. COMPARISON: No comparison. ACCESSION NUMBER(S): [id number] ORDERING CLINICIAN: TOM RUANO TECHNIQUE: ONE DAY [...] PERFUSION STRESS TEST WITH LEXISCAN Performing facility: [facility], [address] [place] [address], [address], [address] Provider: Joey Ruano MD, [facility] PCP: Dr. Marsha Best Supervising provider: Joey Cobb DO, [facility] INDICATION: CAD; CABG ICM SOB; HISTORY: Gender: F; Age: 78 y/o ; Height: HT 149.9 cm cm; Weight: WT 74.844 kg kg. High Cholesterol; CAD; Diabetes; Previous [place]; HTN; SOB; Quit smoking 27 years ago. Cardiac catheterization on 2017. PTCA on 2017. CABG on 2017. COMPARISON: No comparison. ACCESSION NUMBER(S): [id number] ORDERING CLINICIAN: TOM RUANO TECHNIQUE: ONE DAY [...] Charlotte Cordon 10/14/2023 4:27 PM Dictation workstation: [id number] [facility] Work Phone: Radiology Study observation (narrative) [facility] Work Phone: NM Heart Perfusion W stress and W radionuclide IVOrdered By: Charlotte Cordon on 10-14-2023 [facility] Work Phone: NUCLEAR STRESS TESTon 2023 NUCLEAR STRESS TEST Interpreted By: Charlotte Cordon, and Omar Hernandez STUDY: MYOCARDIAL PERFUSION STRESS TEST WITH LEXISCAN Performing facility: [facility], [address] [place] [address], [address], [place] [address] [facility] Provider: Joey Ruano MD, [facility] PCP: Dr. Marsha Best Supervising provider: Joey Cobb DO, [facility] INDICATION: CAD; CABG ICM SOB; HISTORY: Gender: F; Age: 78 y/o ; Height: HT 149.9 cm cm; Weight: WT 74.844 kg kg. High Cholesterol; CAD; Diabetes; Previous [place]; HTN; SOB; Quit smoking 27 years ago. Cardiac catheterization on 2017. PTCA on 2016. CABG on 2017. COMPARISON: No comparison. ACCESSION NUMBER(S): [id number] ORDERING CLINICIAN: TOM RUANO TECHNIQUE: ONE DAY [...] Charlotte Cordon 10/14/2023 4:27 PM Dictation workstation: [id number] [facility] Home Health Recordson 2023 [facility] Records [id number] #1.00TIFF [facility] Retail - Clinical Noteon Retail - Clinical Note [id number] #1.00TIFF Normal [facility] Home Health Recordson 2023 Home Health Records [id number] #1.00TIFF [facility] Home Health Recordson 2023 Home Health Records [id number] #1.00TIFF [facility] Home Health Records [id number] #1.00TIFF Normal [facility] Home Health Recordson 2023 Home Health Records [id number] #1.00TIFF [facility] Home Health Recordson 2023 Home Health Records [id number] #1.00TIFF [facility] ECG 12-Leadon 09-09-2023 ECG 12-Lead [id number] #1.00TIFF [facility] Home Health Recordson 2023 Home Health Records [id number] #1.00TIFF [facility] ED Note-Physicianon 09-01-19 ED Note-Physician [id number] #1.00TIFF [facility] RAD - MISCon 09-01-2023 RAD - MISC [id number] #1.00TIFF [facility] Ambulatory Visit Summaryon 0 08-21-2023 Ambulatory Visit Summary LEXI TATUM :1945 Visit Date:08/20/2023 Ambulatory Visit Instructions Your Diagnosis Annual visit for general adult medical examination without abnormal findings Encounter for screening for other disorder Screening declined by patient Pure hypercholesterolemia Diabetes Class 3 severe obesity with serious comorbidity in adult Adult BMI 37.0-37.9 kg/sq m Your Care Team Attending Physician - Maxien Sanchez Primary Care Physician - Maxine Sanchez [...] 3:40 PM EDT With: Maxine Sanchez Where: [facility] [address] Normal [facility] Family Medicine Office/Clini c Noteon 08-21-2023 [...] Directives reviewed, 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 Patient denies any problems with ADL?s [...] monitor f (more content not included)... Normal [facility] Comment on above: Result Comment: Elec tronically Signed By: Maxine Sanchez\.br\Date and Time Signed: 08/21/23 09:12 EST\.br\Electronically Co-Signed By: Cecliia Lyles\.br\Date and Time Co-Signed: 08/21/23 08:13 EST [...] EST, Weight Dosing HgbA1c Lab Specimen Collect [id number] 3. Long-term insulin use (Z79.4: halfway (current) use of insulin) insulins changed to [...] virus vaccine, inactivated 07/03/2022 Recorded SARS-CoV-2 (COVID-19) mRNAMUL.ORD![id number] 06/17/2022 Re (more content not included)... Normal [facility] Comment on above: Result Comment: Elec tronically Signed By: Maxine Sanchez\.br\Date and Time Signed: 08/21/23 08:02 EST Formson 08-21-2023 Forms [id number] #1.00TIFF Normal [facility] [id number] 08-21-2023 HbA1c (Bld) [Mass fraction] 8.2 % High <=5.9 [facility] Comment on above: Performed By: #### 7 [id number] ####[facility] [address] [place] [address] Patient Educationon 08-21-19 24 Patient Education Caregiving [...] night-lights. ? Place frequently used items in nebt-xk-kfdnx places. Lower the shelves around your home [...] the way. ? Do not use floor [place] or wax that makes floors slippery. If [...] include working with a physical therapist or product trainer to improve your strength, balance, and endurance. Where to find more information ? Centers for Disease Control and Prevention, [place]: www.cdc.gov ? National [place] on Aging: www.jasmina.nih.gov Contact a health care [...] health ca (more content not included)... Normal [facility] Ambulatory Visit Summaryon 0 08-20-2023 Ambulatory [...] 3:40 PM EDT With: Maxine Sanchez Where: [facility] Ambulatory Visit Summary LEXI TATUM Nestor :1945 Visit Date:08/20/2023 Ambulatory Visit Instructions Your Care Team Attending Physician - Maxine Sanchez Primary Care Physician - Maxine Sanchez This Is Your Medications List Misc Prescription ([facility] Prescription) acetaminophen (Tylenol) allopurinol (allopurinol 300 [...] for choosing us for your care. Sangeeta [facility] Pre-Visit Planningon 023 Pre-Visit Planning - [...] feel free to contact me at extension [phone]. Thank you! Bibiana Walter LPN - From: Maxine Sanchez To: Bibiana Walter; Sent: 05/28/2023 14:06:51 EST Subject: RE: Pre-Visit Planning Caller Name: LEXI TATUM; Caller Number: H , M chronic kidney disease stage 3, unspecified Normal [address] [facility] Pre-Visit Planning - From: Bibiana Walter [...] Type 1 diabetes and hypercholesterolemia Normal [address] [facility] Ambulatory Visit Summaryon 1 07-21-2022 Ambulatory [...] 11:00 AM EST With: Maxine Sanchez Where: [facility] Family Medicine Office/Clini c Noteon 05-21-2023 [...] 3 months. Ordered: HgbA1c Lab Specimen Collect [id number] 2. Long-term insulin use (Z79.4: halfway (current) use of insulin) see above Ordered: HgbA1c Lab Specimen Collect [id number] 3. Former smoker (Z87.891: Personal history of [...] virus vaccine, inactivated 07/03/2022 Recorded SARS-CoV-2 (COVID-19) mRNAMUL.ORD![id number] 06/17/2022 Recorded 2023-02-10: TPV75 SARS-CoV-2 (COVID-19) mRNA [...] Recorded pneumococcal 13-valent vaccine 10/30/2016 Recorded Normal [facility] Comment on above: Result Comment: Elec tronically Signed By: Maxine Sanchez\.br\Date and Time Signed: 05/21/23 13:14 EST [id number] 05-21-2023 HbA1c (Bld) [Mass fraction] 8.7 % High <=5.9 [facility] Comment on above: Performed By: #### 7 [id number] #### [facility] Laboratory [address] [place] [address] Ambulatory Visit Summaryon 0 03-05-2023 Ambulatory Visit Summary LEXI TATUM :1945 Visit Date:03/05/2023 Ambulatory Visit Instructions Your Diagnosis BMI 39.0-39.9,adult Former smoker Flank pain Diabetes Your Care Team Attending Physician - Maxine Sanchez Primary Care Physician - Maxine Sanchez This Is Your Medications List Misc Prescription ([facility] Prescription) allopurinol (allopurinol 300 mg Tab) [...] Appointments Friday 1:00 PM EDT With: Where: [facility] [address] Normal [address] [place] [address]- \.br\ Medications\.br\ What How Much When Why [...] Vitamin D deficiency\.br\ Wellness examination\.br\ \.br\ [facility] Family Medicine Office/Clini c Noteon [...] continue BS log. may consider referral to cooler supervisor at that visit. 2. Flank pain [...] virus vaccine, inactivated 07/03/2022 Recorded SARS-CoV-2 (COVID-19) mRNAMUL.ORD![id number] 06/17/2022 Recorded 2023-02-10: TPV75 SARS-CoV-2 (COVID-19) mRNA [...] Recorded pneumococcal 13-valent vaccine 10/30/2016 Recorded Normal [facility] Comment on above: Result Comment: Elec tronically Signed By: Shraddha GAMBLE, Maxine Baez\.br\Date and Time Signed: 03/05/23 14:10 EDT Retail - Clinical Noteon Retail - Clinical Note [id number] #1.00CD:127 Normal [facility] Family Medicine Office/Clini c Noteon 02-11-2023 Family Medicine Office/Clinic Note HPI Staff Lexi is a 77 year old female presenting to [facility] care Establish Care: History: Any previous diagnosis: acute systolic heart failure, CKD stage 4, Diabetic peripheral neuropathy, Vitamin D deficiency, Type 1 diabetes, gout, osteoarthritis, pure hypercholesterolemia History of seeing any specialist: Dr Echeverria [place] [facility], Dr Zhang Marquis specialist, Pain Management Dr Blake Baez hip injections, Dr Rust Automobile Damage Appraiser When was your last doctors visit: Last provider: Any recent labs: 01/30/22 A1c 9.4 Health Maintenance UTD: Colonoscopy: aged out Mammogram: aged out Pelvic/Pap: aged out Acute: Current issues/complaints: Pt would like to discuss Incontinence currently is taking oxybutynin 5mg daily, pt knows she she has to go and is unable to stop flow. Edema: pt would like to discuss pt states Shampoo Assistant isn't concerned Pt needs refill on Basaglar, [...] Metabolic Panel eGFR HgbA1c Lab Specimen Collect 12443 Lipid Panel Thyroid Stimulating Hormone Vitamin D 25 Hydroxy 2. BMI 40.0-44.9, adult (Z68.41: Body mass index [BMI] 40.0-44.9, adult) BMI education complete Ordered: oxybutynin, 10 mg = 1 tab(s), Oral, Daily, # 90 tab(s), Refills(s) 0, Pharmacy: [facility], 140.6, cm, 02/10/23 11:29:00 EDT, Height/Length Dosing, 79.2, kg, 02/10/23 11:29:00 EDT, Weight Dosing Lab Specimen Collect 39391 Vitamin D 25 Hydroxy 3. Former smoker (Z87.891: Personal history of nicotine dependence) continue not smoking Ordered: oxybutynin, 10 mg = 1 tab(s), Oral, Daily, # 90 tab(s), Refills(s) 0, Pharmacy: [facility], 140.6, cm, 02/10/23 11:29:00 EDT, Height/Length Dosing, 79.2, kg, 02/10/23 11:29:00 EDT, Weight Dosing Lab Specimen Collect 79582 Vitamin D 25 Hydroxy 4. Type 1 [...] [facility] (more content not included)... Normal [facility] Comment on above: Result Comment: Elec [...] Follow-Up Appointments Friday 1:00 PM EDT Where: [facility] [address] Normal [facility] Auto Diffon 02-10-2023 Basophils/100 WBC (Bld) 0.4 % Normal 0.0-2.0 [facility] Comment on above: Order Comment: Order Added by Discern Expert. Performed By: #### 7 [id number] #### [facility] Laboratory [address] [place] [address] Basophils/Leukocyt es Auto (Bld) [Pure # fraction] 0.0 E9/L Normal 0.0-0.2 [facility] Comment on above: Order Comment: Order Added by Discern Expert. Performed By: #### 7 [id number] #### [facility] Laboratory [address] [place] [address] Eosinophils/100 WBC (Bld) 2.6 % Normal 0.0-8.0 [facility] Comment on above: Order Comment: Order Added by Vianney Expert. Performed By: #### 7 [id number] #### [facility] [address] [place] [address] Eosinophils/Leukoc ytes Auto (Bld) [Pure # fraction] 0.2 E9/L Normal 0.0-0.5 [facility] Comment on above: Order Comment: Order Added by Discern Expert. Performed By: #### 7 [id number] #### [facility] Laboratory [address] [place] [address] Lymphocytes/100 WBC (Bld) 23.0 % Normal 14.0-50.0 [facility] Comment on above: Order Comment: Order Added by Discern Expert. Performed By: #### 7 [id number] #### [facility] Laboratory [address] [place] [address] Lymphocytes/Leukoc ytes Auto (Bld) [Pure # fraction] 1.8 E9/L Normal 1.0-4.0 [facility] Comment on above: Order Comment: Order Added by Discern Expert. Performed By: #### 7 [id number] #### [facility] [address] [place] [address]35 Monocytes/100 WBC (Bld) 6.6 % Normal 4.0-14.0 [facility] Comment on above: Order Comment: Order Added by Discern Expert. Performed By: #### 7 [id number] #### [facility] [address] [place] [address] Monocytes/Leukocyt es Auto (Bld) [Pure # fraction] 0.5 E9/L Normal 0.2-1.0 [facility] Comment on above: Order Comment: Order Added by Discern Expert. Performed By: #### 7 [id number] #### [facility] [address] [place] [address] Neutrophils/100 WBC (Bld) 67.4 % Normal 36.0-75.0 [facility] Comment on above: Order Comment: Order Added by Discern Expert. Performed By: #### 7 [id number] #### [facility] [address] [place] [address] Neutrophils/Leukoc ytes Auto (Bld) [Pure # fraction] 5.1 E9/L Normal 2.0-7.5 [facility] Comment on above: Order Comment: Order Added by Discern Expert. Performed By: #### 7 [id number] #### [facility] [address] [place] [address] CBC w/ Auto Diffon 3 Erythrocyte distribution width (RBC) [Ratio] 16.0 % High 10.9-14.2 [facility] Comment on above: Performed By: #### 7 [id number] #### [facility] Laboratory [address] [place] [address]85 Hematocrit (Bld) [Volume fraction] 40.5 % Normal 34.0-46.0 [facility] Comment on above: Performed By: #### 7 [id number] #### [facility] Laboratory [address] [place] [address] Hemoglobin (Bld) [Mass/Vol] 13.5 g/dL Normal 12.0-16.0 [facility] Comment on above: Performed By: #### 7 [id number] #### [facility] Laboratory [address] [place] [address] MCH (RBC) [Entitic mass] 31.7 pg Normal 27.0-34.0 [facility] Comment on above: Performed By: #### 7 [id number] #### [facility] Laboratory [address] [place] [address] MCHC (RBC) [Mass/Vol] 33.3 g/dL Normal 31.4-36.0 [facility] Comment on above: Performed By: #### 7 [id number] #### [facility] Laboratory [address] [place] [address] MCV (RBC) [Entitic vol] 95.4 fL Normal 80.0-100.0 [facility] Comment on above: Performed By: #### 7 [id number] #### [facility] Laboratory [address] [place] [address] Platelet mean volume (Bld) [Entitic vol] 10.1 fL Normal 6.4-10.8 [facility] Comment on above: Performed By: #### 7 [id number] #### [facility] Laboratory [address] [place] [address] Platelets (Bld) [#/Vol] 192.0 E9/L Normal 150.0-500.0 [facility] Comment on above: Performed By: #### 7 [id number] #### [facility] Laboratory [address] [place] [address] RBC (Bld) [#/Vol] 4.2 E12/L Low 4.3-5.9 [facility] Comment on above: Performed By: #### 7 [id number] #### [facility] Laboratory [address] [place] [address] WBC corrected for nucl RBC Auto (Bld) [#/Vol] 7.6 E9/L Normal 4.0-11.0 [facility] Comment on above: Performed By: #### 7 [id number] #### [facility] Laboratory [address] [place] [address] CHEMISTRYOrdered By: SYSTEM SYSTEM on 02-10-2023 25-hydroxyvitamin [...] rate/Area] 39 mL/min/1.73 m2 Low >=59mL/min/1.73 m2 [facility] Chem S Globulin (S) [Mass/Vol] 3.6 g/dL Normal 1.4 - 4.0 gm/dL FT Remisol Glucose [Mass/Vol] 235 mg/dL High 55 - 199 mg/dL FT Remisol Potassium [Moles/Vol] 4.0 mmol/L Normal 3.5 - 5.3 mmol/L FT Remisol Protein [Mass/Vol] 7.2 g/dL Normal 6.0 - 7.8 gm/dL F [facility] Remisol Sodium [Moles/Vol] 137 mmol/L Normal 135 [...] (Bld) [Mass fraction] 10.9 % High <=5.9% [facility] ChemAutoSS CMPon 02-10-2023 Albumin [Mass/Vol] 3.6 g/dL Normal 3.3-5.0 [facility] Comment on above: Performed By: #### 7 [id number] #### [facility] Laboratory [address] [place] [address] Albumin/Globulin (S) [Mass conc ratio] 1.0 Low 1.1-2.2 [facility] Comment on above: Performed By: #### 7 [id number] #### [facility] Laboratory [address] [place] [address] ALP [Catalytic activity/Vol] 57 Int._Unit/L Normal 21-98 [facility] Comment on above: Performed By: #### 7 [id number] #### [facility] [address] [place] [address] ALT No additional P-5'-P [Catalytic activity/Vol] 12 Int._Unit/L Normal 6-46 [facility] Comment on above: Performed By: #### 7 [id number] #### [facility] [address] [place] [address] Anion gap [Moles/Vol] 15 mmol/L Normal 6-16 [facility] Comment on above: Performed By: #### 7 [id number] #### [facility] Laboratory [address] [place] [address] AST [Catalytic activity/Vol] 18 Int._Unit/L Normal 5-43 [facility] Comment on above: Performed By: #### 7 [id number] #### [facility] [address] [place] [address] Bilirubin [Mass/Vol] 0.5 mg/dL Normal 0.0-1.1 [facility] Comment on above: Performed By: #### 7 [id number] #### [facility] [address] [place] [address] Calcium [Mass/Vol] 9.8 mg/dL Normal 8.9-11.1 [facility] Comment on above: Performed By: #### 7 [id number] #### [facility] [address] [place] [address] Chloride [Moles/Vol] 98 mmol/L Low 101-111 [facility] Comment on above: Performed By: #### 7 [id number] #### [facility] [address] [place] [address] CO2 [Moles/Vol] 28 mmol/L Normal 21-31 [facility] Comment on above: Performed By: #### 7 [id number] #### [facility] [address] [place] [address] Creatinine [Mass/Vol] 1.4 mg/dL High 0.5-1.3 [facility] Comment on above: Performed By: #### 7 [id number] #### [facility] [address] [place] [address] Globulin (S) [Mass/Vol] 3.6 g/dL Normal 1.4-4.0 [facility] Comment on above: Performed By: #### 7 [id number] #### [facility] [address] [place] [address] Glucose [Mass/Vol] 235 mg/dL High 55-199 [facility] Comment on above: Result Comment: If t his glucose result represents a fasting glucose, interpretation should refer to the following reference range: 55-99 mg/dL Performed By: #### 7 [id number] #### [facility] [address] [place] [address] Potassium [Moles/Vol] 4.0 mmol/L Normal 3.5-5.3 [facility] Comment on above: Performed By: #### 7 [id number] #### [facility] [address] [place] [address] Protein [Mass/Vol] 7.2 g/dL Normal 6.0-7.8 [facility] Comment on above: Performed By: #### 7 [id number] #### [facility] [address] [place] [address] Sodium [Moles/Vol] 137 mmol/L Normal 135-145 [facility] Comment on above: Performed By: #### 7 [id number] #### [facility] [address] [place] [address] Urea nitrogen [Mass/Vol] 23 mg/dL High 5-21 [facility] Comment on above: Performed By: #### 7 [id number] #### [facility] [address] [place] [address] Urea nitrogen/Creatinin e [Mass ratio] 16 No Units Normal 10-20 [facility] Comment on above: Performed By: #### 7 [id number] #### [facility] [address] [place] [address] HEMATOLOGYOrdered By: SYSTEM SYSTEM on 02-10-2023 Basophils/100 [...] 10.1 fL Normal 6.4 - 10.8 fL [facility] HemeAutoSS Platelets (Bld) [#/Vol] 192.0 E9/L Normal 150.0 - 500.0 E9/L [facility] HemeAutoSS RBC (Bld) [#/Vol] 4.2 E12/L Low 4.3 - 5.9 E12/L [facility] HemeAutoSS WBC corrected for nucl RBC Auto (Bld) [#/Vol] 7.6 E9/L Normal 4.0 - 11.0 E9/L [facility] HemeAutoSS [id number] 02-10-2023 HbA1c (Bld) [Mass fraction] 10.9 % High <=5.9 [facility] Comment on above: Performed By: #### 7 [id number] #### [facility] [address] [place] [address] Lipid Panelon 02-10-2023 Cholesterol [Mass/Vol] 196 mg/dL Normal 120-200 [facility] Comment on above: Performed By: #### 7 [id number] #### [facility] [address] [place] [address] Cholesterol in HDL [Mass/Vol] 50 mg/dL Invalid Interpretation Code [facility] Comment on above: Result Comment: HDL > or equal to 60 mg/dL: Low cardiovascular risk HDL < 40 mg/dL : High cardiovascular risk Performed By: #### 7 [id number] #### [facility] [address] [place] [address] Cholesterol in LDL [Mass/Vol] 106 mg/dL Normal <=129 [facility] Comment on above: Performed By: #### 7 [id number] #### [facility] [address] [place] [address] Cholesterol in VLDL [Mass/Vol] 44 mg/dL High 7-40 [facility] Comment on above: Performed By: #### 7 [id number] #### [facility] [address] [place] [address] Triglyceride [Mass/Vol] 218 mg/dL High <=149 [facility] Comment on above: Performed By: #### 7 [id number] #### [facility] [address] [place] [address] TSHon 02-10-2023 TSH Qn 1.79 m[IU]/L Normal 0.34-5.60 [facility] Comment on above: Performed By: #### 7 [id number] #### [facility] [address] [place] [address] Vitamin D 25 Hydroxyon 02-10 25-hydroxyvitamin D3 [Mass/Vol] 52.9 ng/mL Normal 30.0-100.0 [facility] Comment on above: Result Comment: Vit rosario D deficiency has been defined as a level of serum 25-OH vitamin D less than 20 ng/mL (1,2) by the [place] [employer] and an Endocrine Society practice guideline. The Endocrine Society further defined vitamin D insufficiency as a level between 21 and 29 ng/mL (2). 1. IOM ([place] of [employer]). 2010. Dietary reference intakes for calcium and D. [place]: The National Academies Press. 2. Laney MF, Abhijeet NC, Stacey CHATMAN, et al. Evaluation, treatment, and prevention of vitamin D deficiency: an Endocrine Society clinical practice guideline. JCEM. 2010; 96 (7):1911-30. Performed By: #### 7 [id number] #### [facility] [address] [place] [address] eGFRon 02-10-2023 GFR/1.73 sq M.predicted among non-blacks MDRD (S/P/Bld) [Vol rate/Area] 39 mL/min/1.73 m2 Low >=59 [facility] Comment on above: Order Comment: Order added by Discern Expert. Result Comment: Poultry Raiser saba kidney disease could be indicated at eGFR's of less than 60 mL/min/1.73m2. Kidney failure is indicated at less than 15 mL/min/1.73m2. Performed By: #### 7 [id number] #### [facility] [address] [place] [address] XR hip LT 1Von 12-04-2022 XR hip LT 1V [facility] Main [address] [address] XRay Report Signed Patient: Lexi Spence MR#: [id number] : 1945 Acct:[id number] Age/Sex: 77 / F ADM Date: 12/04/22 [place] [facility] [place]: Type: [facility] CLI Attending Dr: Da Lozano II, MD [...] Zayra Juarez M.D.12/04/2022 6:42 PM Dictation Location: [place] [address] Transcribed By: [facility] 12/04/221841 Dictated By: Zayra Juarez MD 12/04/221840 Signed By: 12/04/221841 Normal [facility] XR hip LT min 2V(w/wo pelvis )*on 11-12-2022 XR hip LT min 2V(w/wo pelvis)* [facility] Main [address] [address] XRay Report Signed Patient: Lexi Spence MR#: [id number] : 1945 Acct:[id number] Age/Sex: 77 / F ADM Date: 11/11/22 [place] [facility] Dr: Ross Colmenares MD Copies to: Ross Colmenares MD Ordering Provider: Ross Colmenares MD Date of Service: 11/11/22 XR/XR lumbar spine AP/LAT/FLX/EXT: Other spondylosis with radiculopathy, lumbar region ([id number]) XR/XR hip LT min 2V(w/wo pelvis)*: PAIN [...] Iraheta Jr., D.O.11/12/2022 12:06 PM Dictation Location: [place] [address] Transcribed By: [facility] 11/12/22 1206 Dictated By: Earnest Iraheta Jr, DO 11/12/22 1159 Signed By: 11/12/22 1206 [facility] Office Visit (Cardiology)on 07-25-2022 Follow-up visit Diagnoses/Problems Assessed S/P CABG x 3 (V45.81) (Z95.1) Ischemic cardiomyopathy (414.8) (I25.5) Hyperlipidemia (272.4) (E78.5) HTN (hypertension) (401.9) (I10) History of angioplasty (V45.89) (Z98.62) History of Dyslipidemia (272.4) (E78.5) CAD, multiple vessel (414.00) (I25.10) History of TN (myocardial infarction) (412) (I25.2) Statin intolerance (995.27) [...] - Retrospective Authorization; Done: 25Jul2022 History of TN (myocardial infarction), HTN (hypertension) Renew: Carvedilol 25 [...] History of angioplasty (V45.89) (Z98.62) History of TN (myocardial infarction) (412) (I25.2) HTN (hypertension) (401.9) [...] 023 Adult depression screening assessment No [facility] 250 DO Work Phone: Fall risk assessment a) No falls within the last year [facility] 250 DO Work Phone: Tobacco use status CPHS b) No [facility] [facility] DO Work Phone: CBC AUTO DIFFon 01-30-2022 BASO # 0.0 103/ul Normal 0.0-0.[address] [facility] Comment on above: Performed By: #### C BC #### [facility] [address] [place] [address] Dr. Yarely Roe Basophils/100 WBC (Bld) 0.4 % Normal 0.2-2.[address] [facility] Comment on above: Performed By: #### C BC #### [facility] [address] [place] [address] [address] Yarely Roe EO # 0.2 103/ul Normal 0.0-0.7 [facility] Comment on above: Performed By: #### C BC #### [facility] [address] [place] [address] [address] Yarely Roe Eosinophils/100 WBC (Bld) 2.3 % Normal 0.9-7.0 [facility] Comment on above: Performed By: #### C BC #### [facility] [address] [place] [address] Dr. Yarely Roe Erythrocyte distribution width (RBC) [Ratio] 14.8 % Normal 11.0-15.[address] [facility] Comment on above: Performed By: #### C BC #### [facility] [address] [place] [address] Dr. Yarely Roe Hematocrit (Bld) [Volume fraction] 42.0 % Normal 36.0-48.[address] [facility] Comment on above: Performed By: #### C BC #### [facility] [address] [place] [address] Dr. Yarely Roe Hemoglobin (Bld) [Mass/Vol] 13.7 g/dL Normal 12.0-16.[address] [facility] Comment on above: Performed By: #### C BC #### [facility] [address] [place] [address] Dr. Yarely Roe IG # 0.03 10e3/ul Normal 0.00-0.[address] [facility] Comment on above: Performed By: #### C BC #### [facility] [address] [place] [address] Dr. Yarely Roe IG % 0.4 % Normal 0.0-0.[address] [facility] Comment on above: Performed By: #### C BC #### [facility] [address] [place] [address] Dr. Yarely Roe LYMPH # 1.7 103/ul Normal 1.2-3.[address] [facility] Comment on above: Performed By: #### C BC #### [facility] [address] [place] [address] Dr. Yarely Roe Lymphocytes/100 WBC (Bld) 20.7 % Normal 20.5-60.[address] [facility] Comment on above: Performed By: #### C BC #### [facility] [address] [place] [address] Dr. Yarely Roe MANUAL DIFF REQ NO Normal [facility] Comment on above: Performed By: #### C BC #### [facility] [address] [place] [address] Dr. Yarely Roe MCH (RBC) [Entitic mass] 31.9 pg Normal 26.7-34.[address] [facility] Comment on above: Performed By: #### C BC #### [facility] [address] [place] [address] [address] Yarely Roe MCHC (RBC) [Mass/Vol] 32.6 g/dL Normal 29.9-35.2 [facility] Comment on above: Performed By: #### C BC #### [facility] [address] [place] [address] [address] Yarely Roe MCV (RBC) [Entitic vol] 97.7 fL Normal 81.0-99.0 [facility] Comment on above: Performed By: #### C BC #### [facility] [address] [place] [address] [address] Yarely Roe MONO # 0.5 103/ul Normal 0.3-0.[address] [facility] Comment on above: Performed By: #### C BC #### [facility] [address] [place] [address] Dr. Yarely Roe Monocytes/100 WBC (Bld) 5.9 % Normal 1.7-12.[address] [facility] Comment on above: Performed By: #### C BC #### [facility] [address] [place] [address] Dr. Yarely Roe NEUT # 5.7 103/ul Normal 1.4-6.[address] [facility] Comment on above: Performed By: #### C BC #### [facility] [address] [place] [address] Dr. Yarely Roe Neutrophils/100 WBC (Bld) 70.3 % Normal 43.0-75.0 [facility] Comment on above: Performed By: #### C BC #### [facility] [address] [place] [address] Dr. Yarely oRe Platelet mean volume (Bld) [Entitic vol] 11.0 fL Normal 9.5-13.5 [facility] Comment on above: Performed By: #### C BC #### [facility] [address] [place] [address] Dr. Yarely Roe PLT 196 103/ul Normal 150-450 [facility] Comment on above: Performed By: #### C BC #### [facility] [address] [place] [address] [address] Yarely Roe RBC 4.30 106/ul Normal 4.20-5.40 [facility] Comment on above: Performed By: #### C BC #### [facility] [address] [place] [address] Dr. Yarely Roe WBC 8.1 103/ul Normal 4.0-11.0 [facility] Comment on above: Performed By: #### C BC #### [facility] [address] [place] [address] Dr. Yarely Roe GLYCOHEMOGLOBIN A1Con 2021 ADA RECOMMENDATION SEE BELOW Normal [facility] Comment on above: Result Comment: ADA RECOMMENDED LIMIT 4.0 - 6.0 ADA THERAPEUTIC TARGET < 7.0 ACTION SUGGESTED > 7.0 Performed By: #### A 1C #### [facility] [address] [place] [address] Dr. Yarely Roe Glucose [Mass/Vol] 223 mg/dL Normal [facility] Comment on above: Performed By: #### A 1C #### [facility] [address] [place] [address] Dr. Yarely Roe HbA1c (Bld) [Mass fraction] 9.4 % Critically high 4.5-6.[address] [facility] Comment on above: Performed By: #### A 1C #### [facility] [address] [place] [address] Dr. Yarely Roe PROF CHEM 8 (BAS METB)on Anion gap [Moles/Vol] 13.4 mmol/L Normal [facility] Comment on above: Performed By: #### B MP #### [facility] [address] [place] [address] Dr. Yarely Roe Calcium [Mass/Vol] 9.5 mg/dL Normal 8.5-10.1 [facility] Comment on above: Performed By: #### B MP #### [facility] [address] [place] [address] Dr. Yarely Roe Chloride [Moles/Vol] 101 mmol/L Normal 98-107 [facility] Comment on above: Performed By: #### B MP #### [facility] [address] [place] [address] [address] Yarely Roe CO2 [Moles/Vol] 28.6 mmol/L Normal 21.0-32.[address] [facility] Comment on above: Performed By: #### B MP #### [facility] [address] [place] [address] [address] Yarely Roe Creatinine [Mass/Vol] 1.46 mg/dL Critically high 0.55-1.[address] [facility] Comment on above: Performed By: #### B MP #### [facility] [address] [place] [address] [address] Yarely Roe EGFR-AF ANGOLAN 42 mL/min/1.73m2 Critically low >=[address] [facility] Comment on above: Performed By: #### B MP #### [facility] [address] [place] [address] [address] Yarely Roe EGFR-NON AF ANGOLAN 35 mL/min/1.73m2 Critically low >=[address] [facility] Comment on above: Performed By: #### B MP #### [facility] [address] [place] [address] [address] Yarely Roe Glucose [Mass/Vol] 288 mg/dL Critically high 74-106 [facility] Comment on above: Performed By: #### B MP #### [facility] [address] [place] [address] [address] Yarely Roe Potassium [Moles/Vol] 4.0 mmol/L Normal 3.5-5.[address] [facility] Comment on above: Performed By: #### B MP #### [facility] [address] [place] [address] [address] Yarely Roe Sodium [Moles/Vol] 139 mmol/L Normal 136-[address] [facility] Comment on above: Performed By: #### B MP #### [facility] [address] [place] [address] [address] Yarely Roe Urea nitrogen [Mass/Vol] 27.0 mg/dL Critically high 7.0-18.[address] [facility] Comment on above: Performed By: #### B MP #### [facility] [address] [place] [address] [address] Yarely Roe Urea nitrogen/Creatinin e [Mass ratio] 18.5 mg/mg Normal [facility] Comment on above: Performed By: #### B MP #### [facility] [address] [place] [address] [address] Yarely Roe PROF CHEM 8 (BAS METB)on Anion gap [Moles/Vol] 11.9 mmol/L Normal [facility] Comment on above: Performed By: #### B MP #### [facility] [address] [place] [address] [address] Yarely Roe Calcium [Mass/Vol] 9.1 mg/dL Normal 8.5-10.[address] [facility] Comment on above: Performed By: #### B MP #### [facility] [address] [place] [address] Dr. Yarely Roe Chloride [Moles/Vol] 100 mmol/L Normal 98-[address] [facility] Comment on above: Performed By: #### B MP #### [facility] [address] [place] [address] [address] Yarely Roe CO2 [Moles/Vol] 30.8 mmol/L Normal 21.0-32.[address] [facility] Comment on above: Performed By: #### B MP #### [facility] [address] [place] [address] [address] Yarely Roe Creatinine [Mass/Vol] 1.27 mg/dL Critically high 0.55-1.[address] [facility] Comment on above: Performed By: #### B MP #### [facility] [address] [place] [address] [address] Yarely Roe EGFR-AF ANGOLAN 50 mL/min/1.73m2 Critically low >=60 [facility] Comment on above: Performed By: #### B MP #### [facility] [address] [place] [address] [address] Yarely Roe EGFR-NON AF ANGOLAN 41 mL/min/1.73m2 Critically low >=60 [facility] Comment on above: Performed By: #### B MP #### [facility] [address] [place], [place] [address] Dr. Yarely Roe Glucose [Mass/Vol] 166 mg/dL Critically high 74-106 [facility] Comment on above: Performed By: #### B MP #### [facility] [address] [place], [place] [address] Dr. Yarely Roe Potassium [Moles/Vol] 3.7 mmol/L Normal 3.5-5.[address] [facility] Comment on above: Performed By: #### B MP #### [facility] [address] [place] [address] [address] Yarely Roe Sodium [Moles/Vol] 139 mmol/L Normal 136-[address] [facility] Comment on above: Performed By: #### B MP #### [facility] [address] [place] [address] [address] Yarely Roe Urea nitrogen [Mass/Vol] 20.0 mg/dL Critically high 7.0-18.[address] [facility] Comment on above: Performed By: #### B MP #### [facility] [address] [place], [place] [address] Dr. Yarely Roe Urea nitrogen/Creatinin e [Mass ratio] 15.7 mg/mg Normal [facility] Comment on above: Performed By: #### B MP #### [facility] [address] [place] [address] [address] Yarely Roe Office Visit (Cardiology)on 11-02-2021 Follow-up visit Diagnoses/Problems Assessed Hyperlipidemia (272.4) (E78.5) Ischemic cardiomyopathy (414.8) (I25.5) HTN (hypertension) (401.9) (I10) History of TN (myocardial infarction) (412) (I25.2) CAD, multiple vessel [...] Metabolic Panel; Status:Active - Retrospective Authorization; Requested for:[id number]; CAD, multiple vessel, Hyperlipidemia Renew: Rosuvastatin Calcium [...] 2:24:53 PM (more content not included)... Normal Grid2020 Tobacco Screening.on 022 Adult depression screening assessment No -[facility] 250 DO Work Phone: Fall risk assessment a) No falls within the last year [facility] 250 DO Work Phone: Tobacco use status CPHS b) No [facility] 250 DO Work Phone: XR LSPINE MIN [...] Vascular calcifications. Right pelvic vascular stent. IMPRESSION: [id number] degenerative changes with minimal anterolisthesis of L4 and L5 Electronically authenticated by: ALISSA RAMIREZ Date: 2021-10-16 07:05 Normal [facility] CBC AUTO DIFFon 10-15-2021 BASO # 0.0 103/ul Normal 0.0-0.[address] [facility] Comment on above: Performed By: #### C BC #### [facility] [address] [place] [address] Dr. Yarely Roe Basophils/100 WBC (Bld) 0.3 % Normal 0.2-2.0 [facility] Comment on above: Performed By: #### C BC #### [facility] [address] [place] [address] [address] Yarely Roe EO # 0.3 103/ul Normal 0.0-0.7 [facility] Comment on above: Performed By: #### C BC #### [facility] [address] [place] [address] [address] Yarely Roe Eosinophils/100 WBC (Bld) 3.4 % Normal 0.9-7.0 [facility] Comment on above: Performed By: #### C BC #### [facility] [address] [place] [address] Dr. Yarely Roe Erythrocyte distribution width (RBC) [Ratio] 15.1 % Critically high 11.0-15.[address] [facility] Comment on above: Performed By: #### C BC #### [facility] [address] [place] [address] Dr. Yarely Roe Hematocrit (Bld) [Volume fraction] 42.1 % Normal 36.0-48.[address] [facility] Comment on above: Performed By: #### C BC #### [facility] [address] [place] [address] Dr. Yarely Roe Hemoglobin (Bld) [Mass/Vol] 13.5 g/dL Normal 12.0-16.[address] [facility] Comment on above: Performed By: #### C BC #### [facility] [address] [place] [address] Dr. Yarely Roe IG # 0.04 10e3/ul Critically high 0.00-0.[address] [facility] Comment on above: Performed By: #### C BC #### [facility] [address] [place] [address] Dr. Yarely Roe IG % 0.4 % Normal 0.0-0.[address] [facility] Comment on above: Performed By: #### C BC #### [facility] [address] [place] [address] Dr. Yarely Roe LYMPH # 2.1 103/ul Normal 1.2-3.[address] [facility] Comment on above: Performed By: #### C BC #### [facility] [address] [place] [address] Dr. Yarely Roe Lymphocytes/100 WBC (Bld) 22.9 % Normal 20.5-60.[address] [facility] Comment on above: Performed By: #### C BC #### [facility] [address] [place] [address] Dr. Yarely Roe MANUAL DIFF REQ NO Normal [facility] Comment on above: Performed By: #### C BC #### [facility] [address] [place] [address] Dr. Yarely Roe MCH (RBC) [Entitic mass] 31.5 pg Normal 26.7-34.[address] [facility] Comment on above: Performed By: #### C BC #### [facility] [address] [place] [address] [address] Yarely Roe MCHC (RBC) [Mass/Vol] 32.1 g/dL Normal 29.9-35.2 [facility] Comment on above: Performed By: #### C BC #### [facility] [address] [place] [address] [address] Yarely Roe MCV (RBC) [Entitic vol] 98.1 fL Normal 81.0-99.[address] [facility] Comment on above: Performed By: #### C BC #### [facility] [address] [place] [address] [address] Yarely Roe MONO # 0.6 103/ul Normal 0.3-0.[address] [facility] Comment on above: Performed By: #### C BC #### [facility] [address] [place] [address] Dr. Yarely Roe Monocytes/100 WBC (Bld) 6.1 % Normal 1.7-12.[address] [facility] Comment on above: Performed By: #### C BC #### [facility] [address] [place] [address] Dr. Yarely Roe NEUT # 6.2 103/ul Normal 1.4-6.[address] [facility] Comment on above: Performed By: #### C BC #### [facility] [address] [place] [address] [address] Yarely Roe Neutrophils/100 WBC (Bld) 66.9 % Normal 43.0-75.0 [facility] Comment on above: Performed By: #### C BC #### [facility] [address] [place] [address] [address] Yarely Roe Platelet mean volume (Bld) [Entitic vol] 10.9 fL Normal 9.5-13.5 [facility] Comment on above: Performed By: #### C BC #### [facility] [address] [address] [address] Yarely Roe PLT 220 103/ul Normal 150-450 [facility] Comment on above: Performed By: #### C BC #### [facility] [address] [place] [address] Dr. Yarely Roe RBC 4.29 106/ul Normal 4.20-5.40 [facility] Comment on above: Performed By: #### C BC #### [facility] [address] [place] [address] Dr. Yarely Roe WBC 9.2 103/ul Normal 4.0-11.0 [facility] Comment on above: Performed By: #### C BC #### [facility] [address] [place] [address] Dr. Yarely Roe GLYCOHEMOGLOBIN A1Con 2021 ADA RECOMMENDATION ADA THERAPEUTIC TARGET 6.0 - 7.0 ACTION SUGGESTED > 7.[address] [facility] Comment on above: Performed By: #### A 1C #### [facility] [address] [place] [address] Dr. Yarely Roe Glucose [Mass/Vol] 183 mg/dL Normal [facility] Comment on above: Performed By: #### A 1C #### [facility] [address] [place] [address] Dr. Yarely Roe HbA1c (Bld) [Mass fraction] 8.0 % Critically high <=6.0 [facility] Comment on above: Performed By: #### A 1C #### [facility] [address] [place] [address] Dr. Yarely Roe PROF 14(COMP METB)on 022 Albumin [Mass/Vol] 3.4 g/dL Normal 3.4-5.[address] [facility] Comment on above: Performed By: #### C MP #### [facility] [address] [place] [address] Dr. Yarely Roe Albumin/Globulin [Mass ratio] 0.8 {ratio} Normal [facility] Comment on above: Performed By: #### C MP #### [facility] [address] [place] [address] Dr. Yarely Roe ALP [Catalytic activity/Vol] 59 U/L Normal 46-116 [facility] Comment on above: Performed By: #### C MP #### [facility] [address] [address] [address] Yarely Roe ALT [Catalytic activity/Vol] 9 U/L Critically low 14-59 [facility] Comment on above: Performed By: #### C MP #### [facility] [address] [place] [address] Dr. Yarely Roe Anion gap [Moles/Vol] 11.3 mmol/L Normal [facility] Comment on above: Performed By: #### C MP #### [facility] [address] [address] [address] Yarely Roe AST [Catalytic activity/Vol] 15 U/L Normal 15-37 [facility] Comment on above: Performed By: #### C MP #### [facility] [address] [place] [address] Dr. Yarely Roe Bilirubin [Mass/Vol] 0.3 mg/dL Normal 0.2-1.3 [facility] Comment on above: Performed By: #### C MP #### [facility] [address] [place] [address] Dr. Yarely Roe Calcium [Mass/Vol] 9.4 mg/dL Normal 8.5-10.1 [facility] Comment on above: Performed By: #### C MP #### [facility] [address] [place] [address] Dr. Yarely Roe Chloride [Moles/Vol] 97 mmol/L Critically low 98-107 [facility] Comment on above: Performed By: #### C MP #### [facility] [address] [place] [address] Dr. Yarely Roe CO2 [Moles/Vol] 33.0 mmol/L Critically high 22.0-30.0 [facility] Comment on above: Performed By: #### C MP #### [facility] [address] [place] [address] Dr. Yarely Roe Creatinine [Mass/Vol] 1.40 mg/dL Critically high 0.52-1.04 [facility] Comment on above: Performed By: #### C MP #### [facility] [address] [place] [address] Dr. Yarely Roe EGFR-AF ANGOLAN 44 mL/min/1.73m2 Critically low >=[address] [facility] Comment on above: Performed By: #### C MP #### [facility] [address] [address] [address] Yarely Roe EGFR-NON AF ANGOLAN 37 mL/min/1.73m2 Critically low >=[address] [facility] Comment on above: Performed By: #### C MP #### [facility] [address] [address] [address] Yarely Roe Globulin (S) [Mass/Vol] 4.3 g/dL Normal [facility] Comment on above: Performed By: #### C MP #### [facility] [address] [address] [address] Yarely Roe Glucose [Mass/Vol] 224 mg/dL Critically high 74-106 T [facility] Comment on above: Performed By: #### C MP #### [facility] [address] [address] [address] Yarely Roe Potassium [Moles/Vol] 3.3 mmol/L Critically low 3.4-5.[address] [facility] Comment on above: Performed By: #### C MP #### [facility] [address] [place] [address] Dr. Yarely Roe Protein [Mass/Vol] 7.7 g/dL Normal 6.1-8.[address] [facility] Comment on above: Performed By: #### C MP #### [facility] [address] [address] [address] Yarely Roe Sodium [Moles/Vol] 138 mmol/L Normal 137-[address] [facility] Comment on above: Performed By: #### C MP #### [facility] [address] [address] [address] Yarely Roe Urea nitrogen [Mass/Vol] 27.0 mg/dL Critically high 7.0-18.[address] [facility] Comment on above: Performed By: #### C MP #### [facility] [address] [place] [address] Dr. Yarely Roe Urea nitrogen/Creatinin e [Mass ratio] 19.3 mg/mg Normal [facility] Comment on above: Performed By: #### C #### [facility] [address] [address] [address] Yarely Roe [facility] Carotid Artery Dupl ex Ultrasounon 05-08-2020 [facility] LAB Carotid Artery Duplex Ultrasoun [address], [address], [place] [address] Vascular Lab Report Carotid Artery Duplex Ultrasound Patient Name: LEXI CASTILLO Reading Physician: [id number] Charlotte Cordon MD, [facility] Study Date: 05/08/2020 Referring Physician: [id number] Tom Ruano MD MRN/PID: [id number] PCP: Li Lee Accession/Order#: [id number] CC Report to: Date of : 1945 Technologist: Surekha Hartley RD, T Gender: F Technologist 2: Admission Status: Outpatient Location Performed: [facility] Diagnosis/ICD: R09.89-Other specified symptoms and signs involving the circulatory and respiratory systems Indication: Diabetes, Hyperlipidemia, Former Smoker, Vertigo, CAD, CABG, Ischemic Cardiomyopathy, PTCA, TN, Obesity Procedure/CPT: 35875 Cerebrovascular Carotid Duplex scan complete-[id number] CONCLUSIONS: Right Carotid: Findings are consistent with [...] cm/s Right Left ICA/CCA Ratio 2.2 0.9 [id number] Charlotte Cordon MD, FACC Final Normal [facility] HEMOGLOBIN A1Con 06-17-2019 HbA1c (Bld) [Mass fraction] 7.5 % Normal [facility] Comment on above: Result Comment: Diag nosis of Diabetes-Adults Non-Diabetic: < or = 5.6% Increased risk for developing diabetes: 5.7-6.4% Diagnostic of diabetes: > or = 6.5% . Monitoring of Diabetes Age (y) Therapeutic Goal (%) Adults: >18 <7.0 Pediatrics: 13-18 <7.5 7-12 <8.0 0- 6 7.5-8.5 [employer]. Diabetes Care 33(S1), Jul 2009. Performed By: #### H BA1E #### [facility] [address] [place] [address] HbA1c (Bld) [Mass fraction] 169 MG/DL Normal [facility] Comment on above: Performed By: #### H BA1E #### [facility] [address] [place] [address] Anthony 06-16-2019 AST [Catalytic activity/Vol] 18 U/L Normal 9 - 39 [facility] Comment on above: Order Comment: Patiben nt states she had black coffee this a.m. Performed By: #### A ST #### [address] [address] COMPREHENSIVE PANELon 2018 Albumin [Mass/Vol] 4.1 g/dL Normal 3.4 - 5.0 [facility] Comment on above: Performed By: #### C MP #### [address] [address] ALP [Catalytic activity/Vol] 62 U/L Normal 33 - 136 [facility] Comment on above: Performed By: #### C MP #### [address] [address] ALT [Catalytic activity/Vol] 12 U/L Normal 7 - 45 [facility] Comment on above: Result Comment: Yareli ents treated with Sulfasalazine may generate falsely decreased results for ALT. Performed By: #### C MP #### [address] [address] Anion gap [Moles/Vol] 13 mmol/L Normal 10 - 20 [facility] Comment on above: Performed By: #### C MP #### [address] [address] AST [Catalytic activity/Vol] 16 U/L Normal 9 - 39 [facility] Comment on above: Performed By: #### C MP #### [address] [address] Bilirubin [Mass/Vol] 0.5 mg/dL Normal 0.0 - 1.2 [facility] Comment on above: Performed By: #### C MP #### [address] [address] Calcium [Mass/Vol] 9.8 mg/dL Normal 8.6 - 10.3 [facility] Comment on above: Performed By: #### C MP #### [address] [address] Chloride [Moles/Vol] 103 mmol/L Normal 98 - 107 [facility] Comment on above: Performed By: #### C MP #### [address] [address] Creatinine [Mass/Vol] 1.32 mg/dL High 0.50 - 1.05 [facility] Comment on above: Performed By: #### C MP #### [address] [address] GFR- AM. 47 mL/min/1.73m2 Abnormal >60 [facility] Comment on above: Result Comment: CALC ULATIONS OF ESTIMATED GFR ARE PERFORMED USING THE MDRD STUDY EQUATION FOR THE IDMS-TRACEABLE CREATININE METHODS. CLIN CHEM 2007;53:766-72 Performed By: #### C MP #### [address] [address] GFR-NON AM. 39 mL/min/1.73m2 Abnormal >60 [facility] Comment on above: Performed By: #### C MP #### [address] [address] Glucose [Mass/Vol] 115 mg/dL High 74 - 99 [facility] Comment on above: Performed By: #### C MP #### [address] [address] HCO3 (Bld) [Moles/Vol] 25 mmol/L Normal 21 - 32 [facility] Comment on above: Performed By: #### C MP #### [address] [address] Potassium [Moles/Vol] 5.4 mmol/L High 3.5 - 5.3 [facility] Comment on above: Performed By: #### C MP #### [address] [address] Protein [Mass/Vol] 7.5 g/dL Normal 6.4 - 8.2 [facility] Comment on above: Performed By: #### C MP #### [address] [address] Sodium [Moles/Vol] 136 mmol/L Normal 136 - 145 [facility] Comment on above: Performed By: #### C MP #### [address] [address] Urea nitrogen [Mass/Vol] 40 mg/dL High 6 - 23 [facility] Comment on above: Performed By: #### C MP #### [address] [address] LIPID PANEL (CORONARY RISK 2 )on 06-16-2019 Cholesterol [Mass/Vol] 182 mg/dL Normal 0 - 199 [facility] Comment on above: Order Comment: [...] dosing. Performed By: #### L IPID #### [address] [address] Cholesterol in HDL [Mass/Vol] 39.0 mg/dL Abnormal [facility] Comment on above: Order Comment: Desean hernandez states she had black coffee this a.m. Result Comment: . AGE VERY LOW LOW NORMAL HIGH 0-19 Y < 35 < 40 40-45 ---- 20-24 Y ---- < 40 >45 ---- >24 Y ---- < 40 40-60 >60 . Performed By: #### L IPID #### [address] [address] Cholesterol in LDL [Mass/Vol] 92 mg/dL Normal 0 - 99 [facility] Comment on above: Order Comment: [...] . Performed By: #### L IPID #### [address] [address] Cholesterol in VLDL [Mass/Vol] 51 mg/dL High 0 - 40 [facility] Comment on above: Order Comment: Desean hernandez states she had black coffee this a.m. Performed By: #### L IPID #### [address] [address] Cholesterol.total/ Cholesterol in HDL [Mass ratio] 4.7 {ratio} Normal [facility] Comment on above: Order Comment: Desean hernandez states she had black coffee this a.m. Result Comment: REF VALUES DESIRABLE < 3.4 HIGH RISK > 5.0 Performed By: #### L IPID #### [address] [address] NON-HDL CHOLESTEROL 143 mg/dL Normal [facility] Comment on above: Order Comment: Desean hernandez states she had black coffee this a.m. Result Comment: AGE DESIRABLE BORDERLINE HIGH HIGH VERY HIGH 0-19 Y 0 - 119 120 - 144 >/= 145 >/= 160 20-24 Y 0 - 149 150 - 189 >/= 190 ---- >24 Y 30 MG/DL ABOVE LDL CHOLESTEROL GOAL . Performed By: #### L IPID #### [address] [address] Triglyceride [Mass/Vol] 255 mg/dL High 0 - 149 [facility] Comment on above: Order Comment: [...] dosing. Performed By: #### L IPID #### [address] [address] Vital Signs Date Time Vital Sign Value Performing Clinician Facility 10-14-2023 13:33-0400 Diastolic blood pressure 68 mm[Hg] Margie 1 [facility] 10-14-2023 13:33-0400 Heart rate 78 /min Margie 1 [facility] 10-14-2023 13:33-0400 Systolic blood pressure 108 mm[Hg] Margie 1 [facility] 09-17-2023 13:07-0500 Body height 149.9 cm Tom Ruano MD Work Phone: [facility] 09-17-2023 13:07-0500 Body mass index (BMI) [Ratio] 33.33 kg/m2 Tom Ruano MD Work Phone: [facility] 09-17-2023 13:07-0500 Body weight 74.84 kg Tom Ruano MD Work Phone: [facility] 09-17-2023 13:07-0500 Diastolic blood pressure 70 mm[Hg] Tom Ruano MD Work Phone: [facility] 09-17-2023 13:07-0500 Heart rate 84 /min Tom Ruano MD Work Phone: [facility] 09-17-2023 13:07-0500 Systolic blood pressure 116 mm[Hg] Tom Ruano MD Work Phone: [facility] 09-09-2023 15:18-0500 Body height 149.86 cm [facility] 09-09-2023 15:18-0500 Body mass index (BMI) [Ratio] 33.3 kg/m2 [facility] 09-09-2023 15:18-0500 Body weight 74.84 kg [facility] 09-09-2023 15:18-0500 Diastolic blood pressure 74 mm[Hg] [facility] 09-09-2023 15:18-0500 Heart rate 86 /min [facility] 09-09-2023 15:18-0500 Systolic blood pressure 117 mm[Hg] [facility] 08-13-2023 13:00-0500 Body height Da Lozano II Other [email or web address] Other 08-13-2023 13:00-0500 Body height 149.86 cm [facility] 11-12-2022 15:30-0400 Body height Ross Colmenares Other [email or web address] Other 11-12-2022 15:30-0400 Body mass index (BMI) [Ratio] 33.32 kg/m2 Ross Colmenares Other [email or web address] Other 11-12-2022 15:30-0400 Body weight 74.84 kg Ross Colmenares Other [email or web address] Other 07-25-2022 15:55-0500 Body height 149.86 cm Li Lee Work Phone: [facility]-Dtefejscbv-Qnldujo y 250 DO Work Phone: 07-25-2022 15:55-0500 Body mass index (BMI) [Ratio] 34.94 kg/m2 Li Lee Work Phone: KM-Egvolyqrja-Wuoxhfb y 250 DO Work Phone: 07-25-2022 15:55-0500 Body surface area Derived from formula 1.73 m2 Li Lee Work Phone: RS-Aithabeiyv-Zravsvx y 250 DO Work Phone: 07-25-2022 15:55-0500 Body weight 78.47 kg Li Lee Work Phone: BN-Mmwhaqcgko-Gkmxwdg y 250 DO Work Phone: 07-25-2022 15:55-0500 Diastolic blood pressure 80 mm[Hg] Li Lee Work Phone: GT-Nyoygfncef-Qcrmbgj y 250 DO Work Phone: 07-25-2022 15:55-0500 Heart rate 66 /min Li Lee Work Phone: AY-Uohxwtntto-Qbgibck y 250 DO Work Phone: 07-25-2022 15:55-0500 Systolic blood pressure 120 mm[Hg] Li Lee Work Phone: RO-Kgecttqmho-Zailnwa y 250 DO Work Phone: 11-02-2021 13:16-0400 Body height 149.86 cm Li Lee Work Phone: [facility] 250 DO Work Phone: 11-02-2021 13:16-0400 Body mass index (BMI) [Ratio] 34.54 kg/m2 Li Lee Work Phone: [facility] 250 DO Work Phone: 11-02-2021 13:16-0400 Body surface area Derived from formula 1.73 m2 Li Lee Work Phone: [facility] 250 DO Work Phone: 11-02-2021 13:16-0400 Body weight 77.57 kg Li Lee Work Phone: [facility] 250 DO Work Phone: 11-02-2021 13:16-0400 Diastolic blood pressure 80 mm[Hg] Li Lee Work Phone: [facility] 250 DO Work Phone: 11-02-2021 13:16-0400 Heart rate 66 /min Li Lee Work Phone: [facility] 250 DO Work Phone: 11-02-2021 13:16-0400 Systolic blood pressure 130 mm[Hg] Li Lee Work Phone: [facility] 250 DO Work Phone: Encounters Encounter Date Encounter Type Care Provider Facility Start: 11-19-2023 End: 11-20-2023 ambulatory Maxine L Shraddha Facility: [facility] Start: 10-23-2023 End: 10-23-2023 ambulatory [facility] Work Phone: Start: 10-23-2023 End: 10-23-2023 Patient encounter procedure [facility] Physician [facility] Work Phone: Start: 10-14-2023 End: 10-15-2023 ambulatory [facility] Start: 10-14-2023 End: 10-14-2023 Subsequent hospital visit by physician Margie Messina Stress Room 1 [facility] Comment on above: CAD, multiple vessel ; S/P CABG x 3; Ischemic cardiomyopathy; Occlusion and stenosis of right carotid artery; Shortness of breath Start: 09-17-2023 ambulatory Maxine L Shraddha Facility: [facility] Start: 09-17-2023 End: 09-17-2023 ambulatory [facility] Start: 09-17-2023 End: 09-17-2023 Patient encounter procedure [facility] Work Phone: Start: 09-17-2023 End: 09-17-2023 Office outpatient visit 25 minutes Tom Ruano MD Work Phone: [facility] Comment on above: CAD, multiple vessel (Primary Dx); S/P CABG x 3; History of angioplasty; Primary hypertension; Ischemic cardiomyopathy; Mixed hyperlipidemia; BMI 32.0-32.9,adult; Former smoker; Occlusion and stenosis of right carotid artery; Shortness of breath Start: 09-09-2023 End: 09-09-2023 Patient encounter procedure [facility] Physician [facility] Work Phone: Start: 09-08-2023 End: 09-09-2023 ambulatory Maxine L Shraddha Facility:[facility] Franca martines Start: 08-20-2023 End: 08-21-2023 ambulatory Maxine L Shraddha Facility:[facility] Start: 08-13-2023 End: 08-13-2023 ambulatory Da Burlington II Other [email or web address] Other Start: 08-13-2023 Office outpatient vi sit 15 minutes Da Burlington II [facility] Start: 08-13-2023 End: 08-13-2023 Patient encounter procedure [facility]- Start: 05-21-2023 End: 05-22-2023 ambulatory Maxine L Shraddha Facility:[facility] Start: 04-23-2023 (Procedure) Raine Colmenares [facility] Start: 04-23-2023 End: 04-23-2023 ambulatory Ross Fadiatyler Other [email or web address] Other Start: 04-07-2023 End: 04-07-2023 ambulatory Ross Colmenares Other [email or web address] Other Start: 04-07-2023 Telephone encounter Ross Colmenares [facility] Start: 03-27-2023 End: 03-27-2023 ambulatory Da Bur[place] II Other [email or web address] Other Start: 03-27-2023 Office outpatient vi sit 15 minutes Da Blake II [facility] Start: 03-25-2023 ambulatory Maxine L Shraddha Facility: [facility] Kiera Start: 03-05-2023 End: 03-06-2023 ambulatory Maxine L Shraddha Facility:[facility] [place] [facility] Start: 02-10-2023 End: 02-11-2023 ambulatory Maxine L Shraddha Facility:[facility] Start: 02-10-2023 End: 02-10-2023 Lab Drop off Maxine L Shraddha [facility] Start: 02-05-2023 ambulatory Maxine L Shraddha Facility: [facility] [address] Start: 12-25-2022 (Procedure) Raine Colmenares [facility] Start: 12-25-2022 End: 12-25-2022 ambulatory Ross Colmenares Other [employer] [facility] [employer] Other Start: 12-04-2022 End: 12-04-2022 ambulatory Da Lozano II Facility:[facility] Start: 11-12-2022 End: 11-12-2022 ambulatory Ross Darrian Other [facility] [employer] Other Start: 11-12-2022 Office outpatient ne w 45 minutes Ross Colmenares [facility] Start: 11-11-2022 End: 11-11-2022 ambulatory Ross Fadiatyler Facility:[facility] Start: 11-11-2022 End: 11-11-2022 ambulatory MD Li Lee Work Phone: [facility] Work Phone: Start: 11-11-2022 End: 11-11-2022 Patient encounter procedure MD Li Lee Work Phone: [facility] [place] [facility] Start: 10-09-2022 Rx Renewal Li Lee Work Phone: -[facility] 250 DO Work Phone: Start: 07-25-2022 Office outpatient vi sit 25 minutes Li Lee Work Phone: [facility]erg[facility] 250 DO Work Phone: Start: 07-25-2022 ambulatory Tom Ruano II Facility: Start: 07-10-2022 Rx Renewal Li Lee Work Phone: [facility] 250 DO Work Phone: Start: 01-30-2022 End: 01-31-[address] LI LEE Facility:[facility] Start: 12-19-2021 Encounter for genera l adult medical examination without abnormal findings DR TOM RUANO [facility] Start: 12-13-2021 End: 12-14-[address] LI LEE Facility:[facility] Start: 12-13-2021 End: 12-14-2021 Encounter for general adult medical examination without abnormal findings DR LI LEE Facility:[facility] Start: 11-02-2021 Office outpatient vi sit 25 minutes Li Lee Work Phone: [facility] 250 DO Work Phone: Start: 11-02-[address] IL LEE Facilit y:[facility] Start: 10-18-2021 End: 01-19-[address] LI LEE Facility:[facility] Start: 10-15-2021 End: 10-16-[address] LI LEE Facility:[facility] Start: 10-11-2021 Rx Renewal Li Lee Work Phone: [facility] 250 DO Work Phone: Start: 09-10-2021 Rx Renewal iL Lee Work Phone: [facility] 250 DO Work Phone: Start: 08-03-2021 AUDIT Li Lee Work Phone: [facility] 250 DO Work Phone: Start: 11-20-2017 Ambulatory BLAKE BOYLE Facility :[id number] Start: 09-04-2017 Ambulatory BLAKETALIA KUO Facility :[id number] Start: 04-07-2017 End: 04-08-2017 Ambulatory DEFAULT PHYSICIAN Facility:[facility] Patient encounter status Li Lee Work Phone: [facility] 250 DO Work Phone: Procedures Date Procedure [...] procedure 06/09/2024 11:30 AM EST Office Visit [facility] [address] [place] [address] Jeimy Braun, [employer]GANISER [address] [place] [address] [facility] Start: 03-14-2024 Influenza vaccination Influenz a Vaccine (Season Ended) [facility] Start: 09-17-2023 End: 09-16-2025 NM Heart Perfusion W stress and W radionuclide IV Nuclear Stress Test Cardiac Nuclear Medicine Routine CAD, multiple vessel S/P CABG x 3 Ischemic cardiomyopathy Occlusion and stenosis of right carotid artery Shortness of breath Expected: 09/17/2023 (Approximate), Expires: 09/16/2025 [facility] Service Area Work Phone: Comment on above: Expected: 09/17/2023 (Approximate), Expires: 09/16/2025 Start: 01-10-2024 FUV, Provider: Tom Ruano, Status: Pen, Time: 3:40 PM FUV, Provider: Tom Ruano, Status: Pen, Time: 3:40 PM [facility]Robfdhvjfx-Cgvxmz [place] 250 DO Work Phone: Start: 07-19-2023 Glaucoma screening Diabetes: R etinopathy Screening [facility] Start: 03-14-2023 COVID-19 Vaccine () COVID-19 Vaccine () [facility] Start: 03-14-2023 Influenza vaccination Influenza Vacc ine (#1) [facility] Start: 11-11-2022 X-ray of lumbar spin e, four views XR lumbar spine AP/LAT/FLX/EXT [facility] Start: 11-11-2022 Plain X-ray of left hip XR hip LT min 2V(w/wo pelvis)* [facility] Start: 11-11-2022 XR Hip - left 2 Views [facility] Start: 07-25-2022 FUV, Provider: Tom Ruano, Status: Pen, Time: 3:30 PM FUV, Provider: Tom Ruano, Status: Pen, Time: 3:30 PM -[facility] 250 DO Work Phone: Start: 04-19-2022 FUV, Provider: Tom Ruano, Status: Pen, Time: 3:20 PM FUV, Provider: Tom Ruano, Status: Pen, Time: 3:20 PM -[facility] 250 DO Work Phone: Start: 11-02-2021 FUV, Provider: Tom Ruano, Status: Pen, Time: 1:15 PM FUV, Provider: Tom Ruano, Status: Pen, Time: 1:15 PM [facility] 250 DO Work Phone: Start: 06-16-2020 Lipid panel Lipid Panel [facility] Start: 09-15-2019 Hemoglobin A1c measurement Diabetes: Hemoglobin A1C [facility] Start: 1995 Zoster Vaccines (1 o f 2) Zoster Vaccines (1 of 2) [facility] Start: 1967 DTaP/Tdap/Td Vaccine s (1 - Tdap) DTaP/Tdap/Td Vaccines (1 - Tdap) [facility] Start: 1964 Urine screening for protein Diabetes: Urine Protein Screening [facility] Start: 1963 Hepatitis C screening Hepatitis C Sc reening [facility] Start: 1955 Diabetic foot examination Diabetes: Foot Exam [facility] Start: 1945 Medicare Annual Wellness Visit Medicare Annual Wellness Visit (AWV) [facility] Start: 1945 Screening for osteoporosis Bone Density Scan [facility] Bacteria identified in Urine by Culture [facility] Patient Education Low back pain in adults [facility] Work Phone: [facility] Immunizations Immunization Date Immunization Notes Care Provider Fa cility 07-03-2022 Fluad Quadrivalent 0 .5 ML Intramuscular Prefilled Syringe Li Lee Work Phone: [facility] elias 250 DO Work Phone: 07-03-2022 influenza virus vacc ine, unspecified formulation Maxine Llanes [facility] [place] 07-03-2022 influenza, injectabl e, quadrivalent, contains preservative Tom Ruano MD Work Phone: [facility] Work Phone: 06-17-2022 Pfizer COVID-19 Vac Bivalent 30 MCG/0.3ML Intramuscular Suspension Li Lee [facility] Comment on above: Result Comment: 2022: [id number] 04-13-2021 Pfizer-BioNTech COVI D-19 Vacc 30 MCG/0.3ML Intramuscular Suspension Li Lee Work Phone: [facility] [place] Comment on above: Result Comment: 2022: [id number] 08-30-2020 Pfizer-BioNTech COVI D-19 Vacc 30 MCG/0.3ML Intramuscular Suspension Li Lee Work Phone: [facility] Comment on above: Result Comment: 2022: [id number] 08-09-2020 Pfizer-BioNTech COVI D-19 Vacc 30 MCG/0.3ML Intramuscular Suspension Li Lee Work Phone: [facility] Comment on above: Result Comment: 2022: [id number] 07-01-2019 influenza virus vacc ine, unspecified formulation Maxine Shraddha [facility] 07-01-2019 influenza, injectabl e, quadrivalent, contains preservative Li Lee Work Phone: [facility] [employer] [facility] DO Work Phone: 07-14-2018 influenza virus vacc ine, unspecified formulation Li Lee Work Phone: [facility] 04-16-2018 influenza virus vacc ine, unspecified formulation Maxine Shraddha [facility] 04-16-2018 pneumococcal polysaccharide vaccine, 23 valent Li Lee Work Phone: [facility] 04-13-2018 influenza virus vacc ine, unspecified formulation Li Lee Work Phone: [facility] 250 DO Work Phone: 04-13-2018 pneumococcal conjuga te vaccine, 13 valent Li Lee Work Phone: [facility] 250 DO Work Phone: 05-16-2017 influenza virus vacc ine, unspecified formulation Maxine Shraddha [facility] 05-12-2017 influenza, high dose seasonal, preservative-free Li Lee Work Phone: [facility] DO Work Phone: 10-30-2016 pneumococcal conjuga te vaccine, 13 valent Li Lee Work Phone: [facility] 10-12-2016 pneumococcal polysaccharide vaccine, 23 valent Li Lee Work Phone: [facility] 250 DO Work Phone: 07-14-2011 influenza virus vacc ine, unspecified formulation Li Lee Work Phone: [facility] 250 DO Work Phone: Payers Date Payer Category Payer Medicare [id number] 2022 Self-pay [id number] 2022 Unknown 2010 Medicare [id number] 2010 Medicare MEDICARE MEDICAR E PART A AND B [id number] 2010-Present [address] [place] [address] [id number] 1959 Medicare [id number] 1959 Self-pay [id number] 1959 Unknown [id number] 1945 Unknown [id number] ..840.1.494603.3.579.2.593 1945 Unknown [id number] .16.840.1.667286.3.579.2.593 1945 Unknown [id number] 2.16.840.1.314685.3.579.2.593 1945 Unknown [id number] 2.16.840.1.036127.3.579.2.593 1945 Unknown [id number] 2.16.840.1.176963.3.579.2.593 1945 Unknown [id number] 2.16.840.1.636789.3.579.2.356 1945 Unknown [id number] 2.16.840.1.702602.3.579.2.356 1945 Unknown [id number] 2.16.840.1.855487.3.579.2.1244 1945 Unknown [id number] 2.16.840.1.052117.3.579.2.1246 1945 Unknown [id number] 2.16.840.1.418963.3.579.2.1246 1945 Unknown [id number] 2.16.840.1.298162.3.579.2.1246 1945 Unknown [id number] 2.16.840.1.596759.3.579.2.1246 1945 Unknown [id number] 2.16.840.1.444719.3.579.2.1246 1945 Unknown [id number] 2.16.840.1.641160.3.579.2.727 1945 Unknown [id number] 2.16.840.1.892921.3.579.2.727 1945 Unknown [id number] 2.16.840.1.798684.3.579.2.727 1945 Unknown [id number] 2.16.840.1.832765.3.579.2.727 1945 Unknown [id number] 2.16.840.1.643658.3.579.2.727 1945 Unknown [id number] 2.16.840.1.681763.3.579.2.727 1945 Unknown [id number] 2.16.840.1.639741.3.579.2.727 1945 Unknown [id number] 2.16.840.1.248159.3.579.2.727 1945 Unknown [id number] 2.16.840.1.867506.3.579.2.727 1945 Unknown [id number] 2.16.840.1.205948.3.579.2.727 1945 Unknown [id number] 2.16.840.1.678145.3.579.2.727 1945 Unknown [id number] 2.16.840.1.314215.3.579.2.727 1945 Unknown [id number] 2.16.840.1.051749.3.579.2.727 Medicare [id number] Unknown [id number] 2.16.840.1.539015.3.579.2.531 Unknown [id number] 2.16.840.1.485430.3.579.2.531 Social History Date Type Detail Facility Start: 07-08-2023 End: 09-17-2023 Former smoker Former smoker [facility] 250 DO Work Phone: Comment on above: Quit 17 years ago; Quit 25+ years ago; coffee occasionally soda, tea; Start: 08-06-2018 End: 07-08-2023 Tobacco smoking status COIS Ex-smoker (finding) [facility] Start: 1945 Sex Assigned At Female [facility] Start: 07-08-2023 End: 09-17-2023 Sex Assigned At [facility] Tobacco smoking status Never [facility] End: 07-14-1996 History of tobacco use Current smoker [facility] Work Phone: End: 07-14-1996 History of tobacco use Cigarette Smoker [facility] Work Phone: Start: 07-08-2023 Tobacco use and exposure Smoke less tobacco non-user [facility] Work Phone: Start: 09-17-2023 Alcohol intake Current drinke r of alcohol (finding) [facility] Work Phone: Start: 07-08-2023 Alcohol Comment occasional [facility] Work Phone: Start: 1945 Sex Assigned At Not on file U [facility] Work Phone: Start: 09-07-2023 End: 10-14-2023 Exposure to SARS-CoV-2 (event) Not sure [facility] Start: 08-13-2023 Tobacco smoking stat us NHIS Never smoked tobacco (finding) [facility] Medical Equipment Procedure Code Equipment Code Equipment Origin al Text Equipment Identifier Dates AAA repair with graft GRAFT HEMASHIELD [id number] FDA Start: 07-20-2018 AAA repair with graft IR STENT SMART 9 X 40 120 CM FDA Start: 07-20-2018 AAA repair with graft GRAFT HEMASHIELD [id number] FDA Start: 07-20-2018 AAA repair with graft [...] normal. Allergies Williams inhibitors, Atorvastatin, Spironolactone, and Fxszsks-zhm-cqi reductase inhibitors Current Medications Current Outpatient Medications: [...] discussion and plan. documented in this encounter [facility] Work Phone: 09-17-2023 Instructions Kaleigh Funez LPN [...] of your visit. documented in this encounter [facility] Work Phone: 09-09-2023 Note [id number]#1.00[facility] 09-09-2023 Note [id number]#1.00[facility] 09-01-2023 Note [id number]#1.00[facility] 08-13-2023 Evaluation note Encounter Date Diagnosis Assessment Notes Jul, Primary osteoarthritis of left hip (ICD-10 - M16.12) Jul, Other We have provided her a few names of [facility] physicians that are currently taking new [...] can see her 3 months after that. [email or web address] Other 09-14-2023 Evaluation note* Encounter Date Diagnosis [...] is considering changing from her current PCP [email or web address] Other 05-02-2023 Evaluation note* Encounter Date Diagnosis [...] Above note written by Ramandeep Aggarwal LPN, Cage Manager. Edited and approved by Dr. Ross [...] negative findings were considered in medical decision-making. [email or web address] Other 05-01-2017 History general Narrative - Reported* Type Description Date Medical History TN Medical History Hyperlipiedmia Medical History PVD Medical History DM Medical History HTN Surgical History Open Heart 11/2016 Surgical History Cardiac Stent 09/2017 Surgical History Cardiac Stent 05/2017 Surgical History C- section 1960 Surgical History Rt iliac angioplasty & stent; Aortobiiliac bifurcation graft 07/20/18 Hospitalization History See above [employer] Other Evaluation + Plan note Future Appointments Appointment Date:03/25/2023 01:00:00 PM Scheduled Provider: Location:[facility] Appointment Type:FM Medicare Wellness [facility] information [facility] Work Phone: Evaluation noteNo InformationNort [employer] Other Evaluation note* Diagnosis CAD, multiple vessel- Primary S/P CABG x 3 Postsurgical aortocoronary bypass status History of angioplasty Primary hypertension Unspecified essential hypertension Ischemic cardiomyopathy Other specified forms of chronic ischemic heart disease Mixed hyperlipidemia BMI 32.0-32.9,adult Former smoker Personal history of tobacco use, presenting hazards to health Occlusion and stenosis of right carotid artery Shortness of breath documented in this encounter [facility] Work Phone: Evaluation note* Diagnosis CAD, multiple vessel S/P CABG x 3 Postsurgical aortocoronary bypass status Ischemic cardiomyopathy Other specified forms of chronic ischemic heart disease Occlusion and stenosis of right carotid artery Shortness of breath documented in this encounter [facility] Work Phone: Evaluation note* Diagnosis Onset Date Resolution Status Osteoarthritis of left hip a cute Type 2 diabetes mellitus with hyperglycemia acute UTI (urinary tract infection) acute Lumbar pain acute Osteoarthritis of left hip a cute Uncontrolled diabetes mellitus acute [facility] Work Phone: History of Present illness Narrative* [...] are reviewed and felt to be satisfactory. [facility] [employer] DO Work Phone: History of Present illness [...] are reviewed and felt to be satisfactory. [facility] [employer] DO Work Phone: History of Present illness [...] we suggest no change and follow-up as [id number] 250 DO Work Phone: Hospital course Narrative No data available for this section [facility] Dis[facility] instructions No data available for this section [facility] No data available for this section [facility] (narrative)* Consultation (Routine) - Authorized Specialty Diagnoses / Procedures Referred By Dimitri hartley Referred To Contact Cardiology Diagnoses Occlusion and stenosis of right carotid artery Procedures Follow Up In Cardiology Tom Ruano MD [address] [place] [address] [address], [address] [address] Jeimy Braun APRN-ELLIOT [address] [place] [address] 2, [address] [address] Referral ID Status Reason Start Date Expiration Date V isits Requested Visits Authorized [id number] Authorized 09/17/2023 09/16/2024 1 1 * Cardiac Stress Testing (Routine) - Pending Review Specialty Diagnoses / Procedures Referred By Dimitri Referred To Contact Radiology Diagnoses CAD, multiple vessel S/P CABG x 3 Ischemic cardiomyopathy Occlusion and stenosis of right carotid artery Shortness of breath Procedures Nuclear Stress Test CHG MYOCARDIAL SPECT MULTIPLE STUDIES Tom Ruano MD [address] [place] [address] [address], [address] [address] Referral ID Status Reason Start Date Expiration Date V isits Requested Visits Authorized [id number] Pending Review 09/17/2023 09/16/2024 5 5 [facility] Work Phone: Reason for visit NarrativeNEW SELF REFERRAL [facility] [employer] Other Summary Purpose Family History No Family [...] is of left hip (M16.12) Referral Organization [facility] [employer] Referring Provider First Name Ross Referring Provider Last Name Darrian Referring Provider Specialty Pain Medici ne Referred Organization [facility] [employer] Referred Provider Da Lozano II Referred Address [address] [facility] [place], [place],[address] Referred Provider Specialty Orthopedic S urgery Referral [...] SPECT MULTIPLE STUDIES Tom Ruano MD [address] [facility] [address], [address] [place] [address] Referral ID Status Reason Start Date Expiration Date V isits Requested Visits Authorized [id number] Pending Review 09/17/2023 09/16/2024 5 5 Chief [...] section and content) DATE CREATED AUTHOR 12/31/2017 [facility] DATE CREATED AUTHOR AUTHOR'S ORGANIZ ATION 01/07/2018 [facility] DATE CREATED AUTHOR AUTHOR'S ORGANIZ ATION 05/17/2020 [facility] DATE CREATED AUTHOR AUTHOR'S ORGANIZ ATION 02/14/[address] [facility] DATE CREATED AUTHOR AUTHOR'S ORGANIZ ATION 07/26/2022 [facility] DATE CREATED AUTHOR AUTHOR'S ORGANIZ ATION 07/26/2022 [employer] DATE CREATED AUTHOR AUTHOR'S ORGANIZ ATION 03/02/2023 [facility] DATE CREATED AUTHOR AUTHOR'S ORGANIZ ATION 10/16/2023 [facility] DATE CREATED AUTHOR AUTHOR'S ORGANIZ ATION 10/18/2023 [facility] DATE CREATED AUTHOR AUTHOR'S ORGANIZ ATION 11/21/2023 [facility] Care Teams (unrecognized sec tion and content) Team Status: Active Member Role Status Dates Li Lee MD Primary Care Provider Active Team Status: Inactive Member Role Status Dates Li Lee MD Primary Care Provider Active Ross Colmenares MD Attending Provider Active Air Control/Anti Air Warfare Officer Relationship Specialty Start Date End Date Tom Ruano MD [address] [facility] [address], [address] [place] [address] PCP - MSSP ACO Attributed Provider 01/11/23 Stefan Best MD [address] [place] [address] [place] [address] PCP - General Family Medicine 09/17/23 Air Control/Anti Air Warfare Officer Relationship Specialty Start Date End Date Tom Ruano MD [address] [facility] [address], [address] [place] [address] PCP - MSSP ACO Attributed Provider 01/11/23 Stefan Best MD [address] [place] [address] [place] [address] PCP - General Family Medicine 09/17/23 Air Control/Anti Air Warfare Officer Relationship Specialty Start Date End Date Tom Ruano MD [address] [facility] [address], [address] [place] [address] PCP - MSSP ACO Attributed Provider 01/11/23 Stefan Best MD [address] [place] [address] [place] [address] PCP - General Family Medicine 09/17/23 Air Control/Anti Air Warfare Officer Relationship Specialty Start Date End Date Tom Ruano MD [address] [facility] [address], [address] [place] [address] PCP - MSSP ACO Attributed Provider 01/11/23 Stefan Best MD [address] [place] [address] [place] [address] PCP - General Family Medicine 09/17/23 Air Control/Anti Air Warfare Officer Relationship Specialty Start Date End Date Tom Ruano MD [address] [facility] [address], [address] [place] [address] PCP - [facility]CO Attributed Provider 01/11/23 Stefan Best MD [address] [place] [address] [address] [place] [address] PCP - General Family Medicine 09/17/23 Team [...] SPECT MULTIPLE STUDIES Tom Ruano MD [address] [facility] [address], [address] [place] [address] Referral ID Status Reason Start Date Expiration Date V isits Requested Visits Authorized [id number] Pending Review 09/17/2023 09/16/2024 5 5 FOR [...] BE BASED ON THE PRIMARY CLINICAL RECORDS. [facility] [employer] [facility]. provides no warranty or guarantee of the accuracy or completeness of information in this document.
--- OUTSIDE RECORDS SUMMARY | 2023-11-22 10:51 | XMS_ITS | CCD ---
Author Organization [facility] Care Team Providers Care Strategic Communications Specialist Name Role Phone BLAKE KUO Unavailable Unavailable SHITAL, LI Unavailable Unavailable BLAKE KUO Unavailable Unavailable SHITAL, LI Unavailable Unavailable PHYSICIAN, DEFAULT Unavailable Unavailable PHYSICIAN, DEFAULT Unavailable Unavailable Li Lee Unavailable Unavailable Unavailable SHITAL, DR LI Conley Primary Care Unavailable LEE, DR LI Conley Admitting Unavailable LEE, DR LI Conley Attending Unavailable LEE, DR LI Conley Consulting Unavailable Walford, DR Ren Consulting Unavailable LEE, DR LI [...] Translations: [atorvastatin] Drug Allergy 3 Myalgia [facility] (13 sources) Hmg-Coa Reductase Inhibitors (Statins); Translations: [Statins] Allergy to drug (finding) Myalgia [facility] Color[employer]ules[employer] 250 DO Work Phone: (5 sources) rosuvastatin; Translations: [rosuvastatin] Drug Allergy Myalgia [facility] Lingorami 250 DO Work Phone: (20 sources) Spironolactone; Translations: [spironolactone] Drug Allergy 3 Other [facility] [employer] 250 DO Work Phone: (1 source) Iodine (And Iodine Containting Drugs) Drug allergy (disorder) [facility] (1 source) Pravastatin Drug Allergy [facility] (2 sources) Simvastatin Drug Allergy [facility] (1 source) Sulfonamides (Antibiotic) Drug allergy (disorder) [facility] (6 sources) Adhesive Tape Drug allergy rash [employer] Other (2 sources) Pravastatin; Translations: [pravastatin] Drug Allergy Unknown [facility] (11 sources) Angiotensin-conv erting enzyme inhibitor agent Drug Allergy 3 Other [facility] (13 sources) HMG-CoA reductase inhibitor; Translations: [NZREEEM-ZTN-LZJ REDUCTASE INHIBITORS] Drug Allergy 3 Myalgia [facility] Work Phone: Medications Current Medications Medication [...] 02/05/23 Status: [facility] Aspirin 81 MG 1 [...] Start: 09-11-2017 take 1 capsule by [facility] once daily cholecalciferol 1000 intl [...] 2017 1:00am take 1 capsule by [facility] every twenty-four hours Colace 100 [...] Start: 06-15-2021 take 1 capsule by [facility] twice daily Gabapentin 300 MG [...] 25, 2017 11:51am take 1 capsule by [facility] every twenty-four hours Gabapentin 300 [...] Daily, # 15 mL, Refills(s) 2, Pharmacy: [facility] 1155, 140.6, cm, 02/10/23 11:29:00 EDT, Height/Length Dosing, 79.2, kg, 02/10/23 11:29:00 EDT, Weight Dosing Start Date: 02/10/23 Status: Ordered Start: 02-07-2023 Basaglar KwikP en 100 units/mL subcutaneous solution See Instructions, 50 units daily, # 15 mL, Refills(s) 0, Pharmacy: [place] [id number] Start Date: 02/07/23 Status: Ordered Start: 01-31-2021 [...] Daily, # 90 tab(s), Refills(s) 0, Pharmacy: [facility] 115, 140.6, cm, 02/10/23 11:29:00 [...] Quantity: 60 Refills: 0 Ordered: 19-Dec-2016 [employer] 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 No myocardial ischemia by perfusion imaging. No myocardial infarction by perfusion imaging. Abnormal left ventricular systolic function with mild global hypokinesis. Left ventricular ejection fraction 48 %. No previous studies are available for comparison. Signed by: Charlotte Cordon 10/14/2023 4:27 PM Dictation workstation: [id number] Interpreted By: Charlotte Cordon and Giannuzzi Michael STUDY: MYOCARDIAL PERFUSION STRESS TEST WITH LEXISCAN Performing facility: [facility], [address] [place] [address], [address] Provider: Joey Ruano MD, [facility] PCP: Dr. Marsha Best Supervising provider: Joey Cobb DO, [facility] INDICATION: CAD; CABG ICM SOB; HISTORY: Gender: F; Age: 78 y/o ; Height: HT 149.9 cm cm; Weight: WT 74.844 kg kg. High Cholesterol; CAD; Diabetes; Previous TX; HTN; SOB; Quit smoking 27 years ago. Cardiac catheterization on 2016. PTCA on 2016. CABG on 2016. COMPARISON: No comparison. ACCESSION NUMBER(S): [id number] ORDERING CLINICIAN: TOM RUANO TECHNIQUE: ONE DAY [...] PERFUSION STRESS TEST WITH LEXISCAN Performing facility: [facility], [address] [place] [address], [address], [address] Provider: Joey Ruano MD, [facility] PCP: Dr. Marsha Best Supervising provider: Joey Cobb DO, [facility] INDICATION: CAD; CABG ICM SOB; HISTORY: Gender: F; Age: 78 y/o ; Height: HT 149.9 cm cm; Weight: WT 74.844 kg kg. High Cholesterol; CAD; Diabetes; Previous TX; HTN; SOB; Quit smoking 27 years ago. Cardiac catheterization on 2017. PTCA on 2017. CABG on 2017. COMPARISON: No comparison. ACCESSION NUMBER(S): [id number] ORDERING CLINICIAN: TOM RUANO TECHNIQUE: ONE DAY [...] Charlotte Cordon 10/14/2023 4:27 PM Dictation workstation: [id number] [facility] Work Phone: Radiology Study observation (narrative) [facility] Work Phone: NM Heart Perfusion W stress and W radionuclide IVOrdered By: Charlotte Cordon on 10-14-2023 [facility] Work Phone: NUCLEAR STRESS TESTon 2023 NUCLEAR STRESS TEST Interpreted By: Charlotte Cordon, and Omar Hernandez STUDY: MYOCARDIAL PERFUSION STRESS TEST WITH LEXISCAN Performing facility: [facility], [address] [place] [address], [address], [place] [address] [facility] Provider: Joey Ruano MD, FACC PCP: Dr. Marsha Best Supervising provider: Joey Cobb DO, FACC INDICATION: CAD; CABG ICM SOB; HISTORY: Gender: F; Age: 78 y/o ; Height: HT 149.9 cm cm; Weight: WT 74.844 kg kg. High Cholesterol; CAD; Diabetes; Previous TX; HTN; SOB; Quit smoking 27 years ago. Cardiac catheterization on 2017. PTCA on 2016. CABG on 2017. COMPARISON: No comparison. ACCESSION NUMBER(S): [id number] ORDERING CLINICIAN: TOM RUANO TECHNIQUE: ONE DAY [...] Charlotte Cordon 10/14/2023 4:27 PM Dictation workstation: [id number] [facility] Home Health Recordson 2023 [facility] Records [id number] #1.00TIFF [facility] Retail - Clinical Noteon Retail - Clinical Note [id number] #1.00TIFF Normal [facility] Home Health Recordson 2023 Home Health Records [id number] #1.00TIFF [facility] 2023 Home Health Records [id number] #1.00TIFF [facility] Home Health Records [id number] #1.00TIFF Normal [facility] Home Health Recordson 2023 Home Health Records [id number] #1.00TIFF [facility] 2023 Home Health Records [id number] #1.00TIFF [facility] ECG 12-Leadon 09-09-2023 ECG 12-Lead [id number] #1.00TIFF [facility] Home Health Record[facility] 2023 Home Health Records [id number] #1.00TIFF [facility] ED Note-Physicianon 09-01-19 ED Note-Physician [id number] #1.00TIFF [facility] RAD - MISCon 09-01-2023 RAD - MISC [id number] #1.00TIFF [facility] Ambulatory Visit Summaryon 0 08-21-2023 Ambulatory Visit [...] 3:40 PM EDT With: Maxine Sanchez Where: [facility] [place] Normal [facility] Family Medicine Office/Clini c Noteon 08-21-2023 Family [...] of clutter to prevent tripping and/or falling. 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 Patient denies any problems with [...] monitor f (more content not included)... Normal [facility] Comment on above: Result Comment: Elec tronically [...] EST, Weight Dosing HgbA1c Lab Specimen Collect 12286 3. Long-term insulin use (Z79.4: senior living [...] virus vaccine, inactivated 07/03/2022 Recorded SARS-CoV-2 (COVID-19) mRNAMUL.ORD![id number] 06/17/2022 Re (more content not included)... Normal [facility] Comment on above: Result Comment: Elec tronically Signed By: Maxine Sanchez\.br\Date and Time Signed: 08/21/23 08:02 EST Formson 08-21-2023 Forms [id number] #1.00TIFF Normal [facility] [id number] 08-21-2023 HbA1c (Bld) [Mass fraction] 8.2 % High <=5.9 [facility] Comment on above: Performed By: #### 7 [id number] ####[facility] [id number] [place] [address] Patient Educationon 08-21-19 24 Patient Education Caregiving [...] night-lights. ? Place frequently used items in blxa-lx-gsgtd places. Lower the shelves around your home [...] the way. ? Do not use floor martiniquais or wax that makes floors slippery. If [...] include working with a physical therapist or animal trainer to improve your strength, balance, and endurance. Where to find more information ? Centers for Disease Control and Prevention, [place]: www.cdc.gov ? National [place] on Aging: www.jasmina.nih.gov Contact a health care [...] health ca (more content not included)... Normal [facility] Ambulatory Visit Summaryon 0 08-20-2023 Ambulatory [...] 3:40 PM EDT With: Maxine Sanchez Where: [facility] Ambulatory Visit Summary LEXI TATUM Nestor :1945 Visit Date:08/20/2023 Ambulatory Visit Instructions Your Care Team Attending Physician - Maxine Sanchez Primary Care Physician - Maxine Sanchez This Is Your Medications List Misc Prescription ([facility] Prescription) acetaminophen [...] for choosing us for your care. [place] [facility] Pre-Visit Planningon 023 Pre-Visit Planning - [...] feel free to contact me at extension [phone]. Thank you! Bibiana Walter LPN - From: Maxine Sanchez To: Bibiana Walter; Sent: 05/28/2023 14:06:51 EST Subject: RE: Pre-Visit Planning Caller Name: LEXI TATUM; Caller Number: H , M chronic kidney disease stage 3, unspecified Normal [address] [facility] Pre-Visit Planning - From: Bibiana [...] Type 1 diabetes and hypercholesterolemia Normal [address] [facility] Ambulatory Visit Summaryon 1 07-21-2022 [...] 11:00 AM EST With: Maxine Sanchez Where: [facility] Family Medicine Office/Clini c Noteon 05-21-2023 [...] 3 months. Ordered: HgbA1c Lab Specimen Collect 26935 2. Long-term insulin use (Z79.4: senior living (current) use of insulin) see above Ordered: HgbA1c Lab Specimen Collect 61517 3. Former smoker (Z87.891: Personal history of [...] virus vaccine, inactivated 07/03/2022 Recorded SARS-CoV-2 (COVID-19) mRNAMUL.ORD![id number] 06/17/2022 Recorded 2023-02-10: TPV75 SARS-CoV-2 (COVID-19) mRNA [...] Recorded pneumococcal 13-valent vaccine 10/30/2016 Recorded Normal [facility] Comment on above: Result Comment: Elec tronically Signed By: Maxine Sanchez\.br\Date and Time Signed: 05/21/23 13:14 EST [id number] 05-21-2023 HbA1c (Bld) [Mass fraction] 8.7 % High <=5.9 [facility] Comment on above: Performed By: #### 7 [id number] #### [facility] Laboratory [address] [place] [address] Ambulatory Visit Summaryon 0 03-05-2023 Ambulatory Visit Summary LEXI TATUM :1945 Visit Date:03/05/2023 Ambulatory Visit Instructions Your Diagnosis BMI 39.0-39.9,adult Former smoker Flank pain Diabetes Your Care Team Attending Physician - Maxine Sanchez Primary Care Physician - Maxine Sanchez This Is Your Medications List Misc Prescription ([facility] Prescription) allopurinol (allopurinol [...] Appointments Friday 1:00 PM EDT With: Where: [facility] [place] Normal [address] [place] [address]- \.br\ Medications\.br\ What How Much When Why [...] Vitamin D deficiency\.br\ Wellness examination\.br\ \.br\ [facility] Family Medicine Office/Clini c Noteon [...] continue BS log. may consider referral to grit removal operator at that visit. 2. Flank pain [...] virus vaccine, inactivated 07/03/2022 Recorded SARS-CoV-2 (COVID-19) mRNAMUL.ORD![id number] 06/17/2022 Recorded 2023-02-10: TPV75 SARS-CoV-2 (COVID-19) mRNA [...] Recorded pneumococcal 13-valent vaccine 10/30/2016 Recorded Normal [facility] Comment on above: Result Comment: Elec tronically Signed By: Shraddha GAMBLE, Maxine Baez\.br\Date and Time Signed: 03/05/23 14:10 EDT Retail - Clinical Noteon Retail - Clinical Note [id number] #1.00CD:127 Normal [facility] Family Medicine Office/Clini c Noteon 02-11-2023 Family Medicine Office/Clinic Note HPI Staff Lexi is a 77 year old female presenting to [facility] care Establish Care: History: Any previous diagnosis: acute systolic heart failure, CKD stage 4, Diabetic peripheral neuropathy, Vitamin D deficiency, Type 1 diabetes, gout, osteoarthritis, pure hypercholesterolemia History of seeing any specialist: Dr Echeverria [place] heart, Dr Zhang [place] specialist, Pain Management Dr Blake Baez hip injections, Dr Rust Patient Safety Manager When was your last doctors visit: Last provider: Any recent labs: 01/30/22 A1c 9.4 Health Maintenance UTD: Colonoscopy: aged out Mammogram: aged out Pelvic/Pap: aged out Acute: Current issues/complaints: Pt would like to discuss Incontinence currently is taking oxybutynin 5mg daily, pt knows she she has to go and is unable to stop flow. Edema: pt would like to discuss pt states Aviation Program Manager isn't concerned Pt needs refill on Basaglar, [...] Metabolic Panel eGFR HgbA1c Lab Specimen Collect 25197 Lipid Panel Thyroid Stimulating Hormone Vitamin D 25 Hydroxy 2. BMI 40.0-44.9, adult (Z68.41: Body mass index [BMI] 40.0-44.9, adult) BMI education complete Ordered: oxybutynin, 10 mg = 1 tab(s), Oral, Daily, # 90 tab(s), Refills(s) 0, Pharmacy: [facility], 140.6, cm, 02/10/23 11:29:00 EDT, Height/Length Dosing, 79.2, kg, 02/10/23 11:29:00 EDT, Weight Dosing Lab Specimen Collect 81591 Vitamin D 25 Hydroxy 3. Former smoker (Z87.891: Personal history of nicotine dependence) continue not smoking Ordered: oxybutynin, 10 mg = 1 tab(s), Oral, Daily, # 90 tab(s), Refills(s) 0, Pharmacy: [facility], 140.6, cm, 02/10/23 11:29:00 EDT, Height/Length Dosing, 79.2, kg, 02/10/23 11:29:00 EDT, Weight Dosing Lab Specimen Collect 51212 Vitamin D 25 Hydroxy 4. Type 1 [...] [facility] (more content not included)... Normal [facility] Comment on above: Result Comment: Elec tronically [...] Follow-Up Appointments Friday 1:00 PM EDT Where: [facility] [place] Normal [facility] Auto Diffon 02-10-2023 Basophils/100 WBC (Bld) 0.4 % Normal 0.0-2.0 [facility] Comment on above: Order Comment: Order Added by Discern Expert. Performed By: #### 7 [id number] #### [facility] Laboratory [address] [place] [address] Basophils/Leukocyt es Auto (Bld) [Pure # fraction] 0.0 E9/L Normal 0.0-0.2 [facility] Comment on above: Order Comment: Order Added by Discern Expert. Performed By: #### 7 [id number] #### [facility] Laboratory [address] [place] [address] Eosinophils/100 WBC (Bld) 2.6 % Normal 0.0-8.0 [facility] Comment on above: Order Comment: Order Added by Vianney Expert. Performed By: #### 7 [id number] #### [facility] Laboratory [address] [place] [address] Eosinophils/Leukoc ytes Auto (Bld) [Pure # fraction] 0.2 E9/L Normal 0.0-0.5 [facility] Comment on above: Order Comment: Order Added by Discern Expert. Performed By: #### 7 [id number] #### [facility] Laboratory [address] [place] [address] Lymphocytes/100 WBC (Bld) 23.0 % Normal 14.0-50.0 [facility] Comment on above: Order Comment: Order Added by Discern Expert. Performed By: #### 7 [id number] #### [facility] Laboratory [address] [place] [address] Lymphocytes/Leukoc ytes Auto (Bld) [Pure # fraction] 1.8 E9/L Normal 1.0-4.0 [facility] Comment on above: Order Comment: Order Added by Discern Expert. Performed By: #### 7 [id number] #### [facility] Laboratory [address] [place] [address]26 Monocytes/100 WBC (Bld) 6.6 % Normal 4.0-14.0 [facility] Comment on above: Order Comment: Order Added by Discern Expert. Performed By: #### 7 [id number] #### [facility] Laboratory [address] [place] [address] 005[address] Monocytes/Leukocyt es Auto (Bld) [Pure # fraction] 0.5 E9/L Normal 0.2-1.0 [facility] Comment on above: Order Comment: Order Added by Discern Expert. Performed By: #### 7 [id number] #### [facility] Laboratory [address] [place] [address]90 Neutrophils/100 WBC (Bld) 67.4 % Normal 36.0-75.0 [facility] Comment on above: Order Comment: Order Added by Discern Expert. Performed By: #### 7 [id number] #### [facility] Laboratory [address] [place] [address] Neutrophils/Leukoc ytes Auto (Bld) [Pure # fraction] 5.1 E9/L Normal 2.0-7.5 [facility] Comment on above: Order Comment: Order Added by Discern Expert. Performed By: #### 7 [id number] #### [facility] Laboratory [address] [place] [address] CBC w/ Auto Diffon 3 Erythrocyte distribution width (RBC) [Ratio] 16.0 % High 10.9-14.2 [facility] Comment on above: Performed By: #### 7 [id number] #### [facility] Laboratory [address] [place] [address] Hematocrit (Bld) [Volume fraction] 40.5 % Normal 34.0-46.0 [facility] Comment on above: Performed By: #### 7 [id number] #### [facility] Laboratory [address] [place] [address] Hemoglobin (Bld) [Mass/Vol] 13.5 g/dL Normal 12.0-16.0 [facility] Comment on above: Performed By: #### 7 [id number] #### [facility] Laboratory [address] [place] [address] MCH (RBC) [Entitic mass] 31.7 pg Normal 27.0-34.0 [facility] Comment on above: Performed By: #### 7 [id number] #### [facility] Laboratory [address] [place] [address] MCHC (RBC) [Mass/Vol] 33.3 g/dL Normal 31.4-36.0 [facility] Comment on above: Performed By: #### 7 [id number] #### [facility] Laboratory [address] [place] [address]37 MCV (RBC) [Entitic vol] 95.4 fL Normal 80.0-100.0 [facility] Comment on above: Performed By: #### 7 [id number] #### [facility] Laboratory [address] [place] [address] Platelet mean volume (Bld) [Entitic vol] 10.1 fL Normal 6.4-10.8 [facility] Comment on above: Performed By: #### 7 [id number] #### [facility] Laboratory [address] [place] [address] Platelets (Bld) [#/Vol] 192.0 E9/L Normal 150.0-500.0 [facility] Comment on above: Performed By: #### 7 [id number] #### [facility] Laboratory [address] [place] [address] RBC (Bld) [#/Vol] 4.2 E12/L Low 4.3-5.9 [facility] Comment on above: Performed By: #### 7 [id number] #### [facility] Laboratory [address] [place] [address] WBC corrected for nucl RBC Auto (Bld) [#/Vol] 7.6 E9/L Normal 4.0-11.0 [facility] Comment on above: Performed By: #### 7 [id number] #### [facility] Laboratory [address] [place] [address] CHEMISTRYOrdered By: SYSTEM SYSTEM on 02-10-2023 25-hydroxyvitamin [...] rate/Area] 39 mL/min/1.73 m2 Low >=59mL/min/1.73 m2 [facility] Chem S Globulin (S) [Mass/Vol] 3.6 g/dL Normal 1.4 - 4.0 gm/dL FT Remisol Glucose [Mass/Vol] 235 mg/dL High 55 - 199 mg/dL FT Remisol Potassium [Moles/Vol] 4.0 mmol/L Normal 3.5 - 5.3 mmol/L FT Remisol Protein [Mass/Vol] 7.2 g/dL Normal 6.0 - 7.8 gm/dL F [facility] Remisol Sodium [Moles/Vol] 137 mmol/L Normal 135 [...] (Bld) [Mass fraction] 10.9 % High <=5.9% [facility] ChemAutoSS CMPon 02-10-2023 Albumin [Mass/Vol] 3.6 g/dL Normal 3.3-5.0 [facility] Comment on above: Performed By: #### 7 [id number] #### [facility] Laboratory [address] [place] [address] Albumin/Globulin (S) [Mass conc ratio] 1.0 Low 1.1-2.2 [facility] Comment on above: Performed By: #### 7 [id number] #### [facility] Laboratory [address] [place] [address] ALP [Catalytic activity/Vol] 57 Int._Unit/L Normal 21-98 [facility] Comment on above: Performed By: #### 7 [id number] #### [facility] Laboratory [address] [place] [address] ALT No additional P-5'-P [Catalytic activity/Vol] 12 Int._Unit/L Normal 6-46 [facility] Comment on above: Performed By: #### 7 [id number] #### [facility] Laboratory [address] [place] [address] Anion gap [Moles/Vol] 15 mmol/L Normal 6-16 [facility] Comment on above: Performed By: #### 7 [id number] #### [facility] Laboratory [address] [place] [address] AST [Catalytic activity/Vol] 18 Int._Unit/L Normal 5-43 [facility] Comment on above: Performed By: #### 7 [id number] #### [facility] Laboratory [address] [place] [address] Bilirubin [Mass/Vol] 0.5 mg/dL Normal 0.0-1.1 [facility] Comment on above: Performed By: #### 7 [id number] #### [facility] Laboratory [address] [place] [address] Calcium [Mass/Vol] 9.8 mg/dL Normal 8.9-11.1 [facility] Comment on above: Performed By: #### 7 [id number] #### [facility] [address] [place] [address] Chloride [Moles/Vol] 98 mmol/L Low 101-111 [facility] Comment on above: Performed By: #### 7 [id number] #### [facility] [address] [place] [address] CO2 [Moles/Vol] 28 mmol/L Normal 21-31 [facility] Comment on above: Performed By: #### 7 [id number] #### [facility] [address] [place] [address] Creatinine [Mass/Vol] 1.4 mg/dL High 0.5-1.3 [facility] Comment on above: Performed By: #### 7 [id number] #### [facility] [address] [place] [address] Globulin (S) [Mass/Vol] 3.6 g/dL Normal 1.4-4.0 [facility] Comment on above: Performed By: #### 7 [id number] #### [facility] [address] [place] [address] Glucose [Mass/Vol] 235 mg/dL High 55-199 [facility] Comment on above: Result Comment: If t his glucose result represents a fasting glucose, interpretation should refer to the following reference range: 55-99 mg/dL Performed By: #### 7 [id number] #### [facility] [address] [place] [address] Potassium [Moles/Vol] 4.0 mmol/L Normal 3.5-5.3 [facility] Comment on above: Performed By: #### 7 [id number] #### [facility] [address] [place] [address] Protein [Mass/Vol] 7.2 g/dL Normal 6.0-7.8 [facility] Comment on above: Performed By: #### 7 [id number] #### [facility] [address] [place] [address] Sodium [Moles/Vol] 137 mmol/L Normal 135-145 [facility] Comment on above: Performed By: #### 7 [id number] #### [facility] [address] [place] [address] Urea nitrogen [Mass/Vol] 23 mg/dL High 5-21 [facility] Comment on above: Performed By: #### 7 [id number] #### [facility] [address] [place] [address] Urea nitrogen/Creatinin e [Mass ratio] 16 No Units Normal 10-20 [facility] Comment on above: Performed By: #### 7 [id number] #### [facility] [address] [place] [address] HEMATOLOGYOrdered By: SYSTEM SYSTEM on 02-10-2023 Basophils/100 [...] 10.1 fL Normal 6.4 - 10.8 fL [facility] HemeAutoSS Platelets (Bld) [#/Vol] 192.0 E9/L Normal 150.0 - 500.0 E9/L [facility] HemeAutoSS RBC (Bld) [#/Vol] 4.2 E12/L Low 4.3 - 5.9 E12/L [facility] HemeAutoSS WBC corrected for nucl RBC Auto (Bld) [#/Vol] 7.6 E9/L Normal 4.0 - 11.0 E9/L [facility] HemeAutoSS [id number] 02-10-2023 HbA1c (Bld) [Mass fraction] 10.9 % High <=5.9 [facility] Comment on above: Performed By: #### 7 [id number] #### [facility] [address] [place] [address] Lipid Panelon 02-10-2023 Cholesterol [Mass/Vol] 196 mg/dL Normal 120-200 [facility] Comment on above: Performed By: #### 7 [id number] #### [facility] [address] [place] [address] Cholesterol in HDL [Mass/Vol] 50 mg/dL Invalid Interpretation Code [facility] Comment on above: Result Comment: HDL > or equal to 60 mg/dL: Low cardiovascular risk HDL < 40 mg/dL : High cardiovascular risk Performed By: #### 7 [id number] #### [facility] [address] [place] [address] Cholesterol in LDL [Mass/Vol] 106 mg/dL Normal <=129 [facility] Comment on above: Performed By: #### 7 [id number] #### [facility] [address] [place] [address] Cholesterol in VLDL [Mass/Vol] 44 mg/dL High 7-40 [facility] Comment on above: Performed By: #### 7 [id number] #### [facility] [address] [place] [address] Triglyceride [Mass/Vol] 218 mg/dL High <=149 [facility] Comment on above: Performed By: #### 7 [id number] #### [facility] [address] [place] [address] TSHon 02-10-2023 TSH Qn 1.79 m[IU]/L Normal 0.34-5.60 [facility] Comment on above: Performed By: #### 7 [id number] #### [facility] [address] [place] [address] Vitamin D 25 Hydroxyon 02-10 25-hydroxyvitamin D3 [Mass/Vol] 52.9 ng/mL Normal 30.0-100.0 [facility] Comment on above: Result Comment: Vit rosario D deficiency has been defined as a level of serum 25-OH vitamin D less than 20 ng/mL (1,2) by the [place] [employer] and an Endocrine Society practice guideline. The Endocrine Society further defined vitamin D insufficiency as a level between 21 and 29 ng/mL (2). 1. IOM ([place] [employer]). 2010. Dietary reference intakes for calcium and D. [place]: The National Academies Press. 2. Laney MF, Abhijeet NC, Stacey CHATMAN, et al. Evaluation, treatment, and prevention of vitamin D deficiency: an Endocrine Society clinical practice guideline. JCEM. 2010; 96 (7):1911-30. Performed By: #### 7 [id number] #### [facility] [address] [place] [address] eGFRon 02-10-2023 GFR/1.73 sq M.predicted among non-blacks MDRD (S/P/Bld) [Vol rate/Area] 39 mL/min/1.73 m2 Low >=59 [facility] Comment on above: Order Comment: Order added by Discern Expert. Result Comment: Finance Administrator saba kidney disease could be indicated at eGFR's of less than 60 mL/min/1.73m2. Kidney failure is indicated at less than 15 mL/min/1.73m2. Performed By: #### 7 [id number] #### [facility] [address] [place] [address] XR hip LT 1Von 12-04-2022 XR hip LT 1V [facility] Main [address] [address] XRay Report Signed Patient: Lexi Spence MR#: [id number] : 1945 Acct:[id number] Age/Sex: 77 / F ADM Date: 12/04/22 Loc: [facility] Room: Type: [facility] CLI Attending Dr: aD Lozano II, MD Copies [...] Zayra Juarez M.D.12/04/2022 6:42 PM Dictation Location: [place] [address] Transcribed By: [facility] 12/04/221841 Dictated By: Zayra Juarez MD 12/04/221840 Signed By: 12/04/221841 Normal [facility] XR hip LT min 2V(w/wo pelvis )*on 11-12-2022 XR hip LT min 2V(w/wo pelvis)* [facility] Main [address] [address] XRay Report Signed Patient: Lexi Spence MR#: [id number] : 1945 Acct:[id number] Age/Sex: 77 / F ADM Date: 11/11/22 Loc: [facility] Dr: Ross Colmenares MD Copies to: Ross Colmenares MD Ordering Provider: Ross Colmenares MD Date of Service: 11/11/22 XR/XR lumbar spine AP/LAT/FLX/EXT: Other spondylosis with radiculopathy, lumbar region ([id number]) XR/XR hip LT min 2V(w/wo pelvis)*: PAIN [...] Iraheta Jr., D.O.11/12/2022 12:06 PM Dictation Location: [place] [address] Transcribed By: [facility] 11/12/22 1206 Dictated By: Earnest Iraheta Jr, DO 11/12/22 1159 Signed By: 11/12/22 1206 [facility] Office Visit (Cardiology)on 07-25-2022 Follow-up visit Diagnoses/Problems Assessed S/P CABG x 3 (V45.81) (Z95.1) Ischemic cardiomyopathy (414.8) (I25.5) Hyperlipidemia (272.4) (E78.5) HTN (hypertension) (401.9) (I10) History of angioplasty (V45.89) (Z98.62) History of Dyslipidemia (272.4) (E78.5) CAD, multiple vessel (414.00) (I25.10) History of TX (myocardial infarction) (412) (I25.2) Statin intolerance (995.27) [...] - Retrospective Authorization; Done: 25Jul2022 History of TX (myocardial infarction), HTN (hypertension) Renew: Carvedilol 25 [...] History of angioplasty (V45.89) (Z98.62) History of TX (myocardial infarction) (412) (I25.2) HTN (hypertension) (401.9) [...] 023 Adult depression screening assessment No [facility] 250 DO Work Phone: Fall risk assessment a) No falls within the last year [facility] 250 DO Work Phone: Tobacco use status CPHS b) No [facility] 250 DO Work Phone: CBC AUTO DIFFon 01-30-2022 BASO # 0.0 103/ul Normal 0.0-0.1 [facility] Comment on above: Performed By: #### C BC #### [facility] Laboratory [address] [place] [address] Dr. Yarely Roe Basophils/100 WBC (Bld) 0.4 % Normal 0.2-2.0 [facility] Comment on above: Performed By: #### C BC #### [facility] [address] [place] [address] [address] Yarely Roe EO # 0.2 103/ul Normal 0.0-0.[address] [facility] Comment on above: Performed By: #### C BC #### [facility] [address] [place] [address] [address] Yarely Roe Eosinophils/100 WBC (Bld) 2.3 % Normal 0.9-7.[address] [facility] Comment on above: Performed By: #### C BC #### [facility] [address] [place] [address] Dr. Yarely Roe Erythrocyte distribution width (RBC) [Ratio] 14.8 % Normal 11.0-15.0 [facility] Comment on above: Performed By: #### C BC #### [facility] [address] [place] [address] Dr. Yarely Roe Hematocrit (Bld) [Volume fraction] 42.0 % Normal 36.0-48.0 [facility] Comment on above: Performed By: #### C BC #### [facility] [address] [place] [address] Dr. Yarely Roe Hemoglobin (Bld) [Mass/Vol] 13.7 g/dL Normal 12.0-16.0 [facility] Comment on above: Performed By: #### C BC #### [facility] [address] [place] [address] Dr. Yarely Roe IG # 0.03 10e3/ul Normal 0.00-0.03 [facility] Comment on above: Performed By: #### C BC #### [facility] [address] [place] [address] Dr. Yarely Roe IG % 0.4 % Normal 0.0-0.5 [facility] Comment on above: Performed By: #### C BC #### [facility] [address] [place] [address] Dr. Yarely Roe LYMPH # 1.7 103/ul Normal 1.2-3.8 [facility] Comment on above: Performed By: #### C BC #### [facility] [address] [place] [address] Dr. Yarely Roe Lymphocytes/100 WBC (Bld) 20.7 % Normal 20.5-60.0 [facility] Comment on above: Performed By: #### C BC #### [facility] [address] [place] [address] Dr. Yarely Roe MANUAL DIFF REQ NO Normal [facility] Comment on above: Performed By: #### C BC #### [facility] [address] [place] [address] Dr. Yarely Roe MCH (RBC) [Entitic mass] 31.9 pg Normal 26.7-34.0 [facility] Comment on above: Performed By: #### C BC #### [facility] [address] [place] [address] [address] Yarely Roe MCHC (RBC) [Mass/Vol] 32.6 g/dL Normal 29.9-35.[address] [facility] Comment on above: Performed By: #### C BC #### [facility] [address] [place] [address] [address] Yarely Roe MCV (RBC) [Entitic vol] 97.7 fL Normal 81.0-99.[address] [facility] Comment on above: Performed By: #### C BC #### [facility] [address] [place] [address] [address] Yarely Roe MONO # 0.5 103/ul Normal 0.3-0.8 [facility] Comment on above: Performed By: #### C BC #### [facility] [address] [place] [address] Dr. Yarely Roe Monocytes/100 WBC (Bld) 5.9 % Normal 1.7-12.0 [facility] Comment on above: Performed By: #### C BC #### [facility] [address] [place] [address] Dr. Yarely Roe NEUT # 5.7 103/ul Normal 1.4-6.5 [facility] Comment on above: Performed By: #### C BC #### [facility] [address] [place] [address] Dr. Yarely Roe Neutrophils/100 WBC (Bld) 70.3 % Normal 43.0-75.[address] [facility] Comment on above: Performed By: #### C BC #### [facility] [address] [place] [address] Dr. Yarely Roe Platelet mean volume (Bld) [Entitic vol] 11.0 fL Normal 9.5-13.[address] [facility] Comment on above: Performed By: #### C BC #### [facility] [address] [place] [address] Dr. Yarely Roe PLT 196 103/ul Normal 150-[address] [facility] Comment on above: Performed By: #### C BC #### [facility] [address] [place] [address] [address] Yarely Roe RBC 4.30 106/ul Normal 4.20-5.[address] [facility] Comment on above: Performed By: #### C BC #### [facility] [address] [place] [address] Dr. Yarely Roe WBC 8.1 103/ul Normal 4.0-11.[address] [facility] Comment on above: Performed By: #### C BC #### [facility] [address] [place] [address] Dr. Yarely Roe GLYCOHEMOGLOBIN A1Con 2021 ADA RECOMMENDATION SEE BELOW Normal [facility] Comment on above: Result Comment: ADA RECOMMENDED LIMIT 4.0 - 6.0 ADA THERAPEUTIC TARGET < 7.0 ACTION SUGGESTED > 7.0 Performed By: #### A 1C #### [facility] [address] [place] [address] Dr. Yarely Roe Glucose [Mass/Vol] 223 mg/dL Normal [facility] Comment on above: Performed By: #### A 1C #### [facility] [address] [place] [address] Dr. Yarely Roe HbA1c (Bld) [Mass fraction] 9.4 % Critically high 4.5-6.2 [facility] Comment on above: Performed By: #### A 1C #### [facility] [address] [place] [address] Dr. Yarely Roe PROF CHEM 8 (BAS METB)on Anion gap [Moles/Vol] 13.4 mmol/L Normal [facility] Comment on above: Performed By: #### B MP #### [facility] [address] [place] [address] Dr. Yarely Roe Calcium [Mass/Vol] 9.5 mg/dL Normal 8.5-10.[address] [facility] Comment on above: Performed By: #### B MP #### [facility] [address] [place] [address] Dr. Yarely Roe Chloride [Moles/Vol] 101 mmol/L Normal 98-[address] [facility] Comment on above: Performed By: #### B MP #### [facility] [address] [place] [address] [address] Yarely Roe CO2 [Moles/Vol] 28.6 mmol/L Normal 21.0-32.0 [facility] Comment on above: Performed By: #### B MP #### [facility] [address] [place] [address] [address] Yarely Roe Creatinine [Mass/Vol] 1.46 mg/dL Critically high 0.55-1.02 [facility] Comment on above: Performed By: #### B MP #### [facility] [address] [place] [address] [address] Yarely Roe EGFR-AF NEPALESE 42 mL/min/1.73m2 Critically low >=60 [facility] Comment on above: Performed By: #### B MP #### [facility] [address] [place] [address] [address] Yarely Roe EGFR-NON AF NEPALESE 35 mL/min/1.73m2 Critically low >=60 [facility] Comment on above: Performed By: #### B MP #### [facility] [address] [place] [address] [address] Yarely Roe Glucose [Mass/Vol] 288 mg/dL Critically high 74-[address] [facility] Comment on above: Performed By: #### B MP #### [facility] [address] [place] [address] [address] Yarely Roe Potassium [Moles/Vol] 4.0 mmol/L Normal 3.5-5.1 [facility] Comment on above: Performed By: #### B MP #### [facility] [address] [place] [address] [address] Yarely Roe Sodium [Moles/Vol] 139 mmol/L Normal 136-145 [facility] Comment on above: Performed By: #### B MP #### [facility] [address] [place] [address] [address] Yarely Roe Urea nitrogen [Mass/Vol] 27.0 mg/dL Critically high 7.0-18.0 [facility] Comment on above: Performed By: #### B MP #### [facility] [address] [place] [address] [address] Yarely Roe Urea nitrogen/Creatinin e [Mass ratio] 18.5 mg/mg Normal [facility] Comment on above: Performed By: #### B MP #### [facility] [address] [place] [address] [address] Yarely Roe PROF CHEM 8 (BAS METB)on Anion gap [Moles/Vol] 11.9 mmol/L Normal [facility] Comment on above: Performed By: #### B MP #### [facility] [address] [place] [address] [address] Yarely Roe Calcium [Mass/Vol] 9.1 mg/dL Normal 8.5-10.1 [facility] Comment on above: Performed By: #### B MP #### [facility] [address] [place] [address] Dr. Yarely Roe Chloride [Moles/Vol] 100 mmol/L Normal 98-107 [facility] Comment on above: Performed By: #### B MP #### [facility] [address] [place] [address] [address] Yarely Roe CO2 [Moles/Vol] 30.8 mmol/L Normal 21.0-32.0 [facility] Comment on above: Performed By: #### B MP #### [facility] [address] [place] [address] [address] Yarely Roe Creatinine [Mass/Vol] 1.27 mg/dL Critically high 0.55-1.02 [facility] Comment on above: Performed By: #### B MP #### [facility] [address] [place] [address] [address] Yarely Roe EGFR-AF NEPALESE 50 mL/min/1.73m2 Critically low >=[address] [facility] Comment on above: Performed By: #### B MP #### [facility] [address] [place] [address] [address] Yarely Roe EGFR-NON AF NEPALESE 41 mL/min/1.73m2 Critically low >=[address] [facility] Comment on above: Performed By: #### B MP #### [facility] [address] [place], [place] [address] Dr. Yarely Roe Glucose [Mass/Vol] 166 mg/dL Critically high 74-[address] [facility] Comment on above: Performed By: #### B MP #### [facility] [address] [place], [place] [address] Dr. Yarely Roe Potassium [Moles/Vol] 3.7 mmol/L Normal 3.5-5.1 [facility] Comment on above: Performed By: #### B MP #### [facility] [address] [place] [address] [address] Yarely Roe Sodium [Moles/Vol] 139 mmol/L Normal 136-145 [facility] Comment on above: Performed By: #### B MP #### [facility] [address] [place] [address] [address] Yarely Roe Urea nitrogen [Mass/Vol] 20.0 mg/dL Critically high 7.0-18.0 [facility] Comment on above: Performed By: #### B MP #### [facility] [address] [place], [place] [address] Dr. Yarely Reo Urea nitrogen/Creatinin e [Mass ratio] 15.7 mg/mg Normal [facility] Comment on above: Performed By: #### B MP #### [facility] [address] [place] [address] [address] Yarely Roe Office Visit (Cardiology)on 11-02-2021 Follow-up visit Diagnoses/Problems Assessed Hyperlipidemia (272.4) (E78.5) Ischemic cardiomyopathy (414.8) (I25.5) HTN (hypertension) (401.9) (I10) History of TX (myocardial infarction) (412) (I25.2) CAD, multiple vessel [...] Metabolic Panel; Status:Active - Retrospective Authorization; Requested for:[id number]; CAD, multiple vessel, Hyperlipidemia Renew: Rosuvastatin Calcium [...] 2:24:53 PM (more content not included)... Normal [facility] Tobacco Screening.on 022 Adult depression screening assessment No -[facility] 250 DO Work Phone: Fall risk assessment a) No falls within the last year [facility] [place] 250 DO Work Phone: Tobacco use status CPHS b) No [facility] [place] 250 DO Work Phone: XR LSPINE MIN [...] Vascular calcifications. Right pelvic vascular stent. IMPRESSION: [id number] degenerative changes with minimal anterolisthesis of L4 and L5 Electronically authenticated by: ALISSA RAMIREZ Date: 2021-10-16 07:05 Normal [facility] CBC AUTO DIFFon 10-15-2021 BASO # 0.0 103/ul Normal 0.0-0.1 [facility] Comment on above: Performed By: #### C BC #### [facility] [address] [place] [address] Dr. Yarely Roe Basophils/100 WBC (Bld) 0.3 % Normal 0.2-2.[address] [facility] Comment on above: Performed By: #### C BC #### [facility] [address] [place] [address] [address] Yarely Roe EO # 0.3 103/ul Normal 0.0-0.[address] [facility] Comment on above: Performed By: #### C BC #### [facility] [address] [place] [address] [address] Yarely Roe Eosinophils/100 WBC (Bld) 3.4 % Normal 0.9-7.[address] [facility] Comment on above: Performed By: #### C BC #### [facility] [address] [place] [address] Dr. Yarely Roe Erythrocyte distribution width (RBC) [Ratio] 15.1 % Critically high 11.0-15.0 [facility] Comment on above: Performed By: #### C BC #### [facility] [address] [place] [address] Dr. Yarely Roe Hematocrit (Bld) [Volume fraction] 42.1 % Normal 36.0-48.0 [facility] Comment on above: Performed By: #### C BC #### [facility] [address] [place] [address] Dr. Yarely Roe Hemoglobin (Bld) [Mass/Vol] 13.5 g/dL Normal 12.0-16.0 [facility] Comment on above: Performed By: #### C BC #### [facility] [address] [place] [address] Dr. Yarely Roe IG # 0.04 10e3/ul Critically high 0.00-0.03 [facility] Comment on above: Performed By: #### C BC #### [facility] [address] [place] [address] Dr. Yarely Roe IG % 0.4 % Normal 0.0-0.5 [facility] Comment on above: Performed By: #### C BC #### [facility] [address] [place] [address] Dr. Yarely Roe LYMPH # 2.1 103/ul Normal 1.2-3.8 [facility] Comment on above: Performed By: #### C BC #### [facility] [address] [place] [address] Dr. Yarely Roe Lymphocytes/100 WBC (Bld) 22.9 % Normal 20.5-60.0 [facility] Comment on above: Performed By: #### C BC #### [facility] [address] [place] [address] Dr. Yarely Roe MANUAL DIFF REQ NO Normal [facility] Comment on above: Performed By: #### C BC #### [facility] [address] [place] [address] Dr. Yarely Roe MCH (RBC) [Entitic mass] 31.5 pg Normal 26.7-34.0 [facility] Comment on above: Performed By: #### C BC #### [facility] [address] [address] [address] Yarely Roe MCHC (RBC) [Mass/Vol] 32.1 g/dL Normal 29.9-35.[address] [facility] Comment on above: Performed By: #### C BC #### [facility] [address] [address] [address] Yarely Roe MCV (RBC) [Entitic vol] 98.1 fL Normal 81.0-99.0 [facility] Comment on above: Performed By: #### C BC #### [facility] [address] [address] [address] Yarely Roe MONO # 0.6 103/ul Normal 0.3-0.8 [facility] Comment on above: Performed By: #### C BC #### [facility] [address] [place] [address] Dr. Yarely Roe Monocytes/100 WBC (Bld) 6.1 % Normal 1.7-12.0 [facility] Comment on above: Performed By: #### C BC #### [facility] [address] [place] [address] Dr. Yarely Roe NEUT # 6.2 103/ul Normal 1.4-6.5 [facility] Comment on above: Performed By: #### C BC #### [facility] [address] [address] [address] Yarely Roe Neutrophils/100 WBC (Bld) 66.9 % Normal 43.0-75.[address] [facility] Comment on above: Performed By: #### C BC #### [facility] [address] [address] [address] Yarely Roe Platelet mean volume (Bld) [Entitic vol] 10.9 fL Normal 9.5-13.[address] [facility] Comment on above: Performed By: #### C BC #### [facility] [address] [address] [address] Yarely Roe PLT 220 103/ul Normal 150-[address] [facility] Comment on above: Performed By: #### C BC #### [facility] [address] [place] [address] Dr. Yarely Roe RBC 4.29 106/ul Normal 4.20-5.[address] [facility] Comment on above: Performed By: #### C BC #### [facility] [address] [place] [address] Dr. Yarely Roe WBC 9.2 103/ul Normal 4.0-11.[address] [facility] Comment on above: Performed By: #### C BC #### [facility] [address] [place] [address] Dr. Yarely Roe GLYCOHEMOGLOBIN A1Con 2021 ADA RECOMMENDATION ADA THERAPEUTIC TARGET 6.0 - 7.0 ACTION SUGGESTED > 7.0 Normal [facility] Comment on above: Performed By: #### A 1C #### [facility] [address] [place] [address] Dr. Yarely Roe Glucose [Mass/Vol] 183 mg/dL Normal [facility] Comment on above: Performed By: #### A 1C #### [facility] [address] [place] [address] Dr. Yarely Roe HbA1c (Bld) [Mass fraction] 8.0 % Critically high <=6.[address] [facility] Comment on above: Performed By: #### A 1C #### [facility] [address] [place] [address] Dr. Yarely Roe PROF 14(COMP METB)on 022 Albumin [Mass/Vol] 3.4 g/dL Normal 3.4-5.0 [facility] Comment on above: Performed By: #### C MP #### [facility] [address] [place] [address] Dr. Yarely Roe Albumin/Globulin [Mass ratio] 0.8 {ratio} Normal [facility] Comment on above: Performed By: #### C MP #### [facility] [address] [place] [address] Dr. Yarely Roe ALP [Catalytic activity/Vol] 59 U/L Normal 46-[address] [facility] Comment on above: Performed By: #### C MP #### [facility] [address] [address] [address] Yarely Roe ALT [Catalytic activity/Vol] 9 U/L Critically low 14-[address] [facility] Comment on above: Performed By: #### C MP #### [facility] [address] [place] [address] Dr. Yarely Roe Anion gap [Moles/Vol] 11.3 mmol/L Normal [facility] Comment on above: Performed By: #### C MP #### [facility] [address] [address] [address] Yarely Roe AST [Catalytic activity/Vol] 15 U/L Normal 15-[address] [facility] Comment on above: Performed By: #### C MP #### [facility] [address] [place] [address] Dr. Yarely Roe Bilirubin [Mass/Vol] 0.3 mg/dL Normal 0.2-1.[address] [facility] Comment on above: Performed By: #### C MP #### [facility] [address] [place] [address] Dr. Yarely Roe Calcium [Mass/Vol] 9.4 mg/dL Normal 8.5-10.[address] [facility] Comment on above: Performed By: #### C MP #### [facility] [address] [place] [address] Dr. Yarely Roe Chloride [Moles/Vol] 97 mmol/L Critically low 98-[address] [facility] Comment on above: Performed By: #### C MP #### [facility] [address] [place] [address] Dr. Yarely Roe CO2 [Moles/Vol] 33.0 mmol/L Critically high 22.0-30.[address] [facility] Comment on above: Performed By: #### C MP #### [facility] [address] [place] [address] Dr. Yarely Roe Creatinine [Mass/Vol] 1.40 mg/dL Critically high 0.52-1.[address] [facility] Comment on above: Performed By: #### C MP #### [facility] [address] [place] [address] Dr. Yarely Roe EGFR-AF NEPALESE 44 mL/min/1.73m2 Critically low >=60 [facility] Comment on above: Performed By: #### C MP #### [facility] [address] [address] [address] Yarely Roe EGFR-NON AF NEPALESE 37 mL/min/1.73m2 Critically low >=60 [facility] Comment on above: Performed By: #### C MP #### [facility] [address] [address] [address] Yarely Roe Globulin (S) [Mass/Vol] 4.3 g/dL Normal [facility] Comment on above: Performed By: #### C MP #### [facility] [address] [address] [address] Yarely Roe Glucose [Mass/Vol] 224 mg/dL Critically high 74-106 [facility] Comment on above: Performed By: #### C MP #### [facility] [address] [address] [address] Yarely Roe Potassium [Moles/Vol] 3.3 mmol/L Critically low 3.4-5.0 [facility] Comment on above: Performed By: #### C MP #### [facility] [address] [place] [address] Dr. Yarely Roe Protein [Mass/Vol] 7.7 g/dL Normal 6.1-8.2 [facility] Comment on above: Performed By: #### C MP #### [facility] [address] [address] [address] Yarely Roe Sodium [Moles/Vol] 138 mmol/L Normal 137-145 [facility] Comment on above: Performed By: #### C MP #### [facility] [address] [address] [address] Yarely Roe Urea nitrogen [Mass/Vol] 27.0 mg/dL Critically high 7.0-18.0 [facility] Comment on above: Performed By: #### C MP #### [facility] [address] [place] [address] Dr. Yarely Roe Urea nitrogen/Creatinin e [Mass ratio] 19.3 mg/mg Normal [facility] Comment on above: Performed By: #### C #### [facility] [address] [address] [address] Yarely Roe [facility] Carotid Artery Dupl ex Ultrasounon 05-08-2020 [facility] LAB Carotid Artery Duplex Ultrasoun [address], [address], [place] [address] Vascular Lab Report Carotid Artery Duplex Ultrasound Patient Name: LEXI CASTILLO Reading Physician: [id number] Charlotte Cordon MD, [facility] Study Date: 05/08/2020 Referring Physician: [id number] Tom Ruano MD MRN/PID: [id number] PCP: Li Lee Accession/Order#: [id number] CC Report to: Date of : 1945 Technologist: Surekha Hartley RD, T Gender: F Technologist 2: Admission Status: Outpatient Location Performed: [facility] Diagnosis/ICD: R09.89-Other specified symptoms and signs involving the circulatory and respiratory systems Indication: Diabetes, Hyperlipidemia, Former Smoker, Vertigo, CAD, CABG, Ischemic Cardiomyopathy, PTCA, [place], Obesity Procedure/CPT: 37291 Cerebrovascular Carotid Duplex scan complete-[id number] CONCLUSIONS: Right Carotid: Findings are consistent with [...] cm/s Right Left ICA/CCA Ratio 2.2 0.9 [id number] Charlotte Cordon MD, FACC Final Normal [facility] HEMOGLOBIN A1Con 06-17-2019 HbA1c (Bld) [Mass fraction] 7.5 % Normal [facility] Comment on above: Result Comment: Diag nosis of Diabetes-Adults Non-Diabetic: < or = 5.6% Increased risk for developing diabetes: 5.7-6.4% Diagnostic of diabetes: > or = 6.5% . Monitoring of Diabetes Age (y) Therapeutic Goal (%) Adults: >18 <7.0 Pediatrics: 13-18 <7.5 7-12 <8.0 0- 6 7.5-8.5 [place] [employer]. Diabetes Care 33(S1), Jul 2009. Performed By: #### H BA1E #### [facility] [address] [place] [address] HbA1c (Bld) [Mass fraction] 169 MG/DL Normal [facility] Comment on above: Performed By: #### H BA1E #### [facility] [address] [place] [address] Anthony 06-16-2019 AST [Catalytic activity/Vol] 18 U/L Normal 9 - 39 [facility] Comment on above: Order Comment: Patiben nt states she had black coffee this a.m. Performed By: #### A ST #### [address] [address] COMPREHENSIVE PANELon 2018 Albumin [Mass/Vol] 4.1 g/dL Normal 3.4 - 5.0 [facility] [place] Comment on above: Performed By: #### C MP #### [address] [address] ALP [Catalytic activity/Vol] 62 U/L Normal 33 - 136 [facility] Comment on above: Performed By: #### C MP #### [address] [address] ALT [Catalytic activity/Vol] 12 U/L Normal 7 - 45 [facility] Comment on above: Result Comment: Yareli ents treated with Sulfasalazine may generate falsely decreased results for ALT. Performed By: #### C MP #### [address] [address] Anion gap [Moles/Vol] 13 mmol/L Normal 10 - 20 [facility] Comment on above: Performed By: #### C MP #### [address] [address] AST [Catalytic activity/Vol] 16 U/L Normal 9 - 39 [facility] Comment on above: Performed By: #### C MP #### [address] [address] Bilirubin [Mass/Vol] 0.5 mg/dL Normal 0.0 - 1.2 [facility] Comment on above: Performed By: #### C MP #### [address] [address] Calcium [Mass/Vol] 9.8 mg/dL Normal 8.6 - 10.3 [facility] [place] Comment on above: Performed By: #### C MP #### [address] [address] Chloride [Moles/Vol] 103 mmol/L Normal 98 - 107 [facility] Comment on above: Performed By: #### C MP #### [address] [address] Creatinine [Mass/Vol] 1.32 mg/dL High 0.50 - 1.05 [facility] Comment on above: Performed By: #### C MP #### [address] [address] GFR- AM. 47 mL/min/1.73m2 Abnormal >60 [facility] Comment on above: Result Comment: CALC ULATIONS OF ESTIMATED GFR ARE PERFORMED USING THE MDRD STUDY EQUATION FOR THE IDMS-TRACEABLE CREATININE METHODS. CLIN CHEM 2007;53:766-72 Performed By: #### C MP #### [address] [address] GFR-NON AM. 39 mL/min/1.73m2 Abnormal >60 [facility] Comment on above: Performed By: #### C MP #### [address] [address] Glucose [Mass/Vol] 115 mg/dL High 74 - 99 [facility] [place] Comment on above: Performed By: #### C MP #### [address] [address] HCO3 (Bld) [Moles/Vol] 25 mmol/L Normal 21 - 32 [facility] Comment on above: Performed By: #### C MP #### [address] [address] Potassium [Moles/Vol] 5.4 mmol/L High 3.5 - 5.3 [facility] Comment on above: Performed By: #### C MP #### [address] [address] Protein [Mass/Vol] 7.5 g/dL Normal 6.4 - 8.2 [facility] [place] Comment on above: Performed By: #### C MP #### [address] [address] Sodium [Moles/Vol] 136 mmol/L Normal 136 - 145 [facility] [place] Comment on above: Performed By: #### C MP #### [address] [address] Urea nitrogen [Mass/Vol] 40 mg/dL High 6 - 23 [facility] Comment on above: Performed By: #### C MP #### [address] [address] LIPID PANEL (CORONARY RISK 2 )on 06-16-2019 Cholesterol [Mass/Vol] 182 mg/dL Normal 0 - 199 [facility] Comment on above: Order Comment: Desean [...] dosing. Performed By: #### L IPID #### [address] [address] Cholesterol in HDL [Mass/Vol] 39.0 mg/dL Abnormal [facility] Comment on above: Order Comment: Desean hernandez states she had black coffee this a.m. Result Comment: . AGE VERY LOW LOW NORMAL HIGH 0-19 Y < 35 < 40 40-45 ---- 20-24 Y ---- < 40 >45 ---- >24 Y ---- < 40 40-60 >60 . Performed By: #### L IPID #### [address] [address] Cholesterol in LDL [Mass/Vol] 92 mg/dL Normal 0 - 99 [facility] Comment on above: Order Comment: Desean hernandez states she had black coffee this a.m. Result Comment: . NEAR BORD AGE DESIRABLE OPTIMAL HIGH HIGH VERY HIGH 0-19 Y 0 - 109 --- 110-129 >/= 130 ---- 20-24 Y 0 - 119 --- 120-159 >/= 160 ---- >24 Y 0 - 99 100-129 130-159 160-189 >/=190 . Performed By: #### L IPID #### [address] [address] Cholesterol in VLDL [Mass/Vol] 51 mg/dL High 0 - 40 [facility] Comment on above: Order Comment: Desean hernandez states she had black coffee this a.m. Performed By: #### L IPID #### [address] [address] Cholesterol.total/ Cholesterol in HDL [Mass ratio] 4.7 {ratio} Normal [facility] Comment on above: Order Comment: Desean hernandez states she had black coffee this a.m. Result Comment: REF VALUES DESIRABLE < 3.4 HIGH RISK > 5.0 Performed By: #### L IPID #### [address] [address] NON-HDL CHOLESTEROL 143 mg/dL Normal [facility] Comment on above: Order Comment: Desean hernandez states she had black coffee this a.m. Result Comment: AGE DESIRABLE BORDERLINE HIGH HIGH VERY HIGH 0-19 Y 0 - 119 120 - 144 >/= 145 >/= 160 20-24 Y 0 - 149 150 - 189 >/= 190 ---- >24 Y 30 MG/DL ABOVE LDL CHOLESTEROL GOAL . Performed By: #### L IPID #### [address] [address] Triglyceride [Mass/Vol] 255 mg/dL High 0 - 149 [facility] Comment on above: Order Comment: Desean [...] dosing. Performed By: #### L IPID #### [address] [address] Vital Signs Date Time Vital Sign Value Performing Clinician Facility 10-14-2023 13:33-0400 Diastolic blood pressure 68 mm[Hg] Margie 1 [facility] 10-14-2023 13:33-0400 Heart rate 78 /min Margie 1 [facility] 10-14-2023 13:33-0400 Systolic blood pressure 108 mm[Hg] Margie 1 [facility] 09-17-2023 13:07-0500 Body height 149.9 cm Tom Ruano MD Work Phone: [facility] 09-17-2023 13:07-0500 Body mass index (BMI) [Ratio] 33.33 kg/m2 Tom Ruano MD Work Phone: [facility] 09-17-2023 13:07-0500 Body weight 74.84 kg Tom Ruano MD Work Phone: [facility] 09-17-2023 13:07-0500 Diastolic blood pressure 70 mm[Hg] Tom Ruano MD Work Phone: [facility] 09-17-2023 13:07-0500 Heart rate 84 /min Tom Ruano MD Work Phone: [facility] 09-17-2023 13:07-0500 Systolic blood pressure 116 mm[Hg] Tom Ruano MD Work Phone: [facility] 09-09-2023 15:18-0500 Body height 149.86 cm [facility] 09-09-2023 15:18-0500 Body mass index (BMI) [Ratio] 33.3 kg/m2 [facility] 09-09-2023 15:18-0500 Body weight 74.84 kg [facility] 09-09-2023 15:18-0500 Diastolic blood pressure 74 mm[Hg] [facility] 09-09-2023 15:18-0500 Heart rate 86 /min [facility] 09-09-2023 15:18-0500 Systolic blood pressure 117 mm[Hg] [facility] 08-13-2023 13:00-0500 Body height Da Lozano II Other [employer] Other 08-13-2023 13:00-0500 Body height 149.86 cm [facility] 11-12-2022 15:30-0400 Body height Ross Colmenares Other [employer] Other 11-12-2022 15:30-0400 Body mass index (BMI) [Ratio] 33.32 kg/m2 Ross Colmenares Other [employer] Other 11-12-2022 15:30-0400 Body weight 74.84 kg Ross Colmenares Other [employer] Other 07-25-2022 15:55-0500 Body height 149.86 cm Li Lee Work Phone: MH-Ewvzbcueni-Bfkwxdt y 250 DO Work Phone: 07-25-2022 15:55-0500 Body mass index (BMI) [Ratio] 34.94 kg/m2 Li Lee Work Phone: OC-Pqubstxgpo-Mszrbiq y 250 DO Work Phone: 07-25-2022 15:55-0500 Body surface area Derived from formula 1.73 m2 Li Lee Work Phone: KU-Zmtftsswbd-Xwghmku y 250 DO Work Phone: 07-25-2022 15:55-0500 Body weight 78.47 kg Li Lee Work Phone: HR-Wnacphlkdr-Vzlydcz y 250 DO Work Phone: 07-25-2022 15:55-0500 Diastolic blood pressure 80 mm[Hg] Li Lee Work Phone: VV-Obidspbdus-Cvmtbsp y 250 DO Work Phone: 07-25-2022 15:55-0500 Heart rate 66 /min Li Lee Work Phone: EJ-Aaegueluna-Hxffecz y 250 DO Work Phone: 07-25-2022 15:55-0500 Systolic blood pressure 120 mm[Hg] Li Lee Work Phone: PF-Bkqgfrocnw-Yyhggws y 250 DO Work Phone: 11-02-2021 13:16-0400 Body height 149.86 cm Li Lee Work Phone: [facility] 250 DO Work Phone: 11-02-2021 13:16-0400 Body mass index (BMI) [Ratio] 34.54 kg/m2 Li Lee Work Phone: [facility] 250 DO Work Phone: 11-02-2021 13:16-0400 Body surface area Derived from formula 1.73 m2 Li Lee Work Phone: [facility] 250 DO Work Phone: 11-02-2021 13:16-0400 Body weight 77.57 kg Li Lee Work Phone: [facility] 250 DO Work Phone: 11-02-2021 13:16-0400 Diastolic blood pressure 80 mm[Hg] Li Lee Work Phone: [facility] 250 DO Work Phone: 11-02-2021 13:16-0400 Heart rate 66 /min Li Lee Work Phone: [facility] 250 DO Work Phone: 11-02-2021 13:16-0400 Systolic blood pressure 130 mm[Hg] Li Lee Work Phone: [facility] 250 DO Work Phone: Encounters Encounter Date Encounter Type Care Provider Facility Start: 11-19-2023 End: 11-20-2023 ambulatory Maxine L Shraddha Facility: [facility] Start: 10-23-2023 End: 10-23-2023 ambulatory [facility] Work Phone: Start: 10-23-2023 End: 10-23-2023 Patient encounter procedure [facility] Physician [facility] Work Phone: Start: 10-14-2023 End: 10-15-2023 ambulatory [facility] Start: 10-14-2023 End: 10-14-2023 Subsequent hospital visit by physician Margie Messina Stress Room [facility] Comment on above: CAD, multiple vessel ; S/P CABG x 3; Ischemic cardiomyopathy; Occlusion and stenosis of right carotid artery; Shortness of breath Start: 09-17-2023 ambulatory Maxine L Shraddha Facility: [facility] Start: 09-17-2023 End: 09-17-2023 ambulatory [facility] Start: 09-17-2023 End: 09-17-2023 Patient encounter procedure [facility] Work Phone: Start: 09-17-2023 End: 09-17-2023 Office outpatient visit 25 minutes Tom Ruano MD Work Phone: [facility] Comment on above: CAD, multiple vessel (Primary Dx); S/P CABG x 3; History of angioplasty; Primary hypertension; Ischemic cardiomyopathy; Mixed hyperlipidemia; BMI 32.0-32.9,adult; Former smoker; Occlusion and stenosis of right carotid artery; Shortness of breath Start: 09-09-2023 End: 09-09-2023 Patient encounter procedure [facility] Physician [facility] Work Phone: Start: 09-08-2023 End: 09-09-2023 ambulatory Maxine L Shraddha Facility:[facility] Franca martines Start: 08-20-2023 End: 08-21-2023 ambulatory Maxine L Shraddha Facility:[facility] Start: 08-13-2023 End: 08-13-2023 ambulatory Da Grady II Other [employer] Other Start: 08-13-2023 Office outpatient vi sit 15 minutes Da Grady II [facility] Start: 08-13-2023 End: 08-13-2023 Patient encounter procedure [facility]- Start: 05-21-2023 End: 05-22-2023 ambulatory Maxine L Shraddha Facility:[facility] Start: 04-23-2023 (Procedure) Raine Colmenares [facility] Start: 04-23-2023 End: 04-23-2023 ambulatory Ross Fadiatyler Other [employer] Other Start: 04-07-2023 End: 04-07-2023 ambulatory Ross Colmenares Other [employer] Other Start: 04-07-2023 Telephone encounter Ross Colmenares [facility] Start: 03-27-2023 End: 03-27-2023 ambulatory Da Grady II Other [employer] Other Start: 03-27-2023 Office outpatient vi sit 15 minutes Da Blake II [facility] Start: 03-25-2023 ambulatory Maxine L Shraddha Facility: [facility] Start: 03-05-2023 End: 03-06-2023 ambulatory Maxine L Shraddha Facility:[facility] [place] bobbi Start: 02-10-2023 End: 02-11-2023 ambulatory Maxine L Shraddha Facility:[facility] Start: 02-10-2023 End: 02-10-2023 Lab Drop off Maxine L Shraddha [facility] Start: 02-05-2023 ambulatory Maxine L Shraddha Facility: [facility] [place] Start: 12-25-2022 (Procedure) Raine Colmenares [facility] Start: 12-25-2022 End: 12-25-2022 ambulatory Ross Colmenares Other [facility] [employer] Other Start: 12-04-2022 End: 12-04-2022 ambulatory Da Lozano II Facility:[facility] Start: 11-12-2022 End: 11-12-2022 ambulatory Ross Darrian Other [facility] [employer] Other Start: 11-12-2022 Office outpatient ne w 45 minutes Ross Colmenares [facility] Start: 11-11-2022 End: 11-11-2022 ambulatory Ross Fadiatyler Facility:[facility] Start: 11-11-2022 End: 11-11-2022 ambulatory MD Li Lee Work Phone: [facility] Work Phone: Start: 11-11-2022 End: 11-11-2022 Patient encounter procedure MD Li Lee Work Phone: [facility] [place] [facility] Start: 10-09-2022 Rx Renewal Li Lee Work Phone: -[facility] 250 DO Work Phone: Start: 07-25-2022 Office outpatient vi sit 25 minutes Li Lee Work Phone: [facility]Nwchbbr[facility]Izzhqms[facility] 250 DO Work Phone: Start: 07-25-2022 ambulatory Tom Ruano II Facility: Start: 07-10-2022 Rx Renewal Li Lee Work Phone: [facility] 250 DO Work Phone: Start: 01-30-2022 End: 01-31-[address] LI LEE Facility:[facility] Start: 12-19-2021 Encounter for genera l adult medical examination without abnormal findings DR TOM RUANO [facility] Start: 12-13-2021 End: 12-14-[address] LI LEE Facility:[facility] Start: 12-13-2021 End: 12-14-2021 Encounter for general adult medical examination without abnormal findings DR LI LEE Facility:[facility] Start: 11-02-2021 Office outpatient vi sit 25 minutes Li Lee Work Phone: [facility] 250 DO Work Phone: Start: 11-02-[address] LI LEE Facilit y:[facility] Start: 10-18-2021 End: 01-19-[address] LI LEE Facility:[facility] Start: 10-15-2021 End: 10-16-[address] LI LEE Facility:[facility] Start: 10-11-2021 Rx Renewal Li Lee Work Phone: [facility] 250 DO Work Phone: Start: 09-10-2021 Rx Renewal Li Lee Work Phone: [facility] 250 DO Work Phone: Start: 08-03-2021 AUDIT Li Lee Work Phone: [facility] 250 DO Work Phone: Start: 11-20-2017 Ambulatory BLAKE BOYLE Facility :[id number] Start: 09-04-2017 Ambulatory BLAKETALIA KUO Facility :[id number] Start: 04-07-2017 End: 04-08-2017 Ambulatory DEFAULT PHYSICIAN Facility:[facility] Patient encounter status Li Lee Work Phone: [facility] 250 DO Work Phone: Procedures Date Procedure [...] procedure 06/09/2024 11:30 AM EST Office Visit [facility] [address] [place] [address] Jeimy Braun, CONTINUOUS LINTER DRIER OPERATOR-MAGENTO WEB DEVELOPER [address] [place] [address] [facility] Start: 03-14-2024 Influenza vaccination Influenz a Vaccine (Season Ended) [facility] Start: 09-17-2023 End: 09-16-2025 NM Heart Perfusion W stress and W radionuclide IV Nuclear Stress Test Cardiac Nuclear Medicine Routine CAD, multiple vessel S/P CABG x 3 Ischemic cardiomyopathy Occlusion and stenosis of right carotid artery Shortness of breath Expected: 09/17/2023 (Approximate), Expires: 09/16/2025 [facility] Service Area Work Phone: Comment on above: Expected: 09/17/2023 (Approximate), Expires: 09/16/2025 Start: 01-10-2024 FUV, Provider: Tom Ruano, Status: Pen, Time: 3:40 PM FUV, Provider: Tom Ruano, Status: Pen, Time: 3:40 PM BQ-Xijijupvlh-Olmtxm [place] 250 DO Work Phone: Start: 07-19-2023 Glaucoma screening Diabetes: R etinopathy Screening [facility] Start: 03-14-2023 COVID-19 Vaccine () COVID-19 Vaccine () [facility] Start: 03-14-2023 Influenza vaccination Influenza Vacc ine (#1) [facility] Start: 11-11-2022 X-ray of lumbar spin e, four views XR lumbar spine AP/LAT/FLX/EXT [facility] Start: 11-11-2022 Plain X-ray of left hip XR hip LT min 2V(w/wo pelvis)* [facility] Start: 11-11-2022 XR Hip - left 2 Views F [facility] Start: 07-25-2022 FUV, Provider: Tom Ruano, Status: Pen, Time: 3:30 PM FUV, Provider: Tom Ruano, Status: Pen, Time: 3:30 PM -[facility]-[place] 250 DO Work Phone: Start: 04-19-2022 FUV, Provider: Tom Ruano, Status: Pen, Time: 3:20 PM FUV, Provider: Tom Ruano, Status: Pen, Time: 3:20 PM -[facility]-[place] 250 DO Work Phone: Start: 11-02-2021 FUV, Provider: Tom Ruano, Status: Pen, Time: 1:15 PM FUV, Provider: Tom Ruano, Status: Pen, Time: 1:15 PM [facility] 250 DO Work Phone: Start: 06-16-2020 Lipid panel Lipid Panel [facility] Start: 09-15-2019 Hemoglobin A1c measurement Diabetes: Hemoglobin A1C [facility] Start: 1995 Zoster Vaccines (1 o f 2) Zoster Vaccines (1 of 2) [facility] Start: 1967 DTaP/Tdap/Td Vaccine s (1 - Tdap) DTaP/Tdap/Td Vaccines (1 - Tdap) [facility] Start: 1964 Urine screening for protein Diabetes: Urine Protein Screening [facility] Start: 1963 Hepatitis C screening Hepatitis C Sc reening [facility] Start: 1955 Diabetic foot examination Diabetes: Foot Exam [facility] Start: 1945 Medicare Annual Wellness Visit Medicare Annual Wellness Visit (AWV) [facility] Start: 1945 Screening for osteoporosis Bone Density Scan [facility] Bacteria identified in Urine by Culture [facility] Patient Education Low back pain in adults [facility] Work Phone: [facility] Immunizations Immunization Date Immunization Notes Care Provider Fa cility 07-03-2022 Fluad Quadrivalent 0 .5 ML Intramuscular Prefilled Syringe Li Lee Work Phone: [facility] elias 250 DO Work Phone: 07-03-2022 influenza virus vacc ine, unspecified formulation Maxine Llanes [facility] [place] 07-03-2022 influenza, injectabl e, quadrivalent, contains preservative Tom Ruano MD Work Phone: [facility] Work Phone: 06-17-2022 Pfizer COVID-19 Vac Bivalent 30 MCG/0.3ML Intramuscular Suspension Li [facility] Comment on above: Result Comment: 2022: [id number] 04-13-2021 Pfizer-BioNTech COVI D-19 Vacc 30 MCG/0.3ML Intramuscular Suspension Li Lee Work Phone: [facility] [place] Comment on above: Result Comment: 2022: [id number] 08-30-2020 Pfizer-BioNTech COVI D-19 Vacc 30 MCG/0.3ML Intramuscular Suspension Li Lee Work Phone: [facility] Comment on above: Result Comment: 2022: [id number] 08-09-2020 Pfizer-BioNTech COVI D-19 Vacc 30 MCG/0.3ML Intramuscular Suspension Li Lee Work Phone: [facility] Comment on above: Result Comment: 2022: [id number] 07-01-2019 influenza virus vacc ine, unspecified formulation Maxine Shraddha [facility] 07-01-2019 influenza, injectabl e, quadrivalent, contains preservative Li Lee Work Phone: [facility] [employer] DO Work Phone: 07-14-2018 influenza virus vacc ine, unspecified formulation Li Lee Work Phone: [facility] 04-16-2018 influenza virus vacc ine, unspecified formulation Maxine Shraddha [facility] 04-16-2018 pneumococcal polysaccharide vaccine, 23 valent Li Lee Work Phone: [facility] 04-13-2018 influenza virus vacc ine, unspecified formulation Li Lee Work Phone: [facility] 250 DO Work Phone: 04-13-2018 pneumococcal conjuga te vaccine, 13 valent Li Lee Work Phone: [facility] 250 DO Work Phone: 05-16-2017 influenza virus vacc ine, unspecified formulation Maxine Shraddha [facility] 05-12-2017 influenza, high dose seasonal, preservative-free Li Lee Work Phone: [facility] [employer] DO Work Phone: 10-30-2016 pneumococcal conjuga te vaccine, 13 valent Li Lee Work Phone: [facility] 10-12-2016 pneumococcal polysaccharide vaccine, 23 valent Li eLe Work Phone: [facility] 250 DO Work Phone: 07-14-2011 influenza virus vacc ine, unspecified formulation Li Lee Work Phone: [facility] 250 DO Work Phone: Payers Date Payer Category Payer Medicare [id number] 2022 Self-pay [id number] 2022 Unknown 2010 Medicare [id number] 2010 Medicare MEDICARE MEDICAR E PART A AND B [id number] 2010-Present [address] [place] [address] [id number] 1959 Medicare [id number] 1959 Self-pay [id number] 1959 Unknown [id number] 1945 Unknown [id number] ..840.1.843548.3.579.2.593 1945 Unknown [id number] .16.840.1.353541.3.579.2.593 1945 Unknown [id number] 2.16.840.1.271417.3.579.2.593 1945 Unknown [id number] 2.16.840.1.183735.3.579.2.593 1945 Unknown [id number] 2.16.840.1.254636.3.579.2.593 1945 Unknown [id number] 2.16.840.1.139007.3.579.2.356 1945 Unknown [id number] 2.16.840.1.536090.3.579.2.356 1945 Unknown [id number] 2.16.840.1.223376.3.579.2.1244 1945 Unknown [id number] 2.16.840.1.324535.3.579.2.1246 1945 Unknown [id number] 2.16.840.1.793335.3.579.2.1246 1945 Unknown [id number] 2.16.840.1.701733.3.579.2.1246 1945 Unknown [id number] 2.16.840.1.335410.3.579.2.1246 1945 Unknown [id number] 2.16.840.1.573942.3.579.2.1246 1945 Unknown [id number] 2.16.840.1.600294.3.579.2.727 1945 Unknown [id number] 2.16.840.1.030826.3.579.2.727 1945 Unknown [id number] 2.16.840.1.335529.3.579.2.727 1945 Unknown [id number] 2.16.840.1.744309.3.579.2.727 1945 Unknown [id number] 2.16.840.1.871048.3.579.2.727 1945 Unknown [id number] 2.16.840.1.186587.3.579.2.727 1945 Unknown [id number] 2.16.840.1.174915.3.579.2.727 1945 Unknown [id number] 2.16.840.1.284242.3.579.2.727 1945 Unknown [id number] 2.16.840.1.885392.3.579.2.727 1945 Unknown [id number] 2.16.840.1.397527.3.579.2.727 1945 Unknown [id number] 2.16.840.1.888942.3.579.2.727 1945 Unknown [id number] 2.16.840.1.227320.3.579.2.727 1945 Unknown [id number] 2.16.840.1.278969.3.579.2.727 Medicare [id number] Unknown [id number] 2.16.840.1.193804.3.579.2.531 Unknown [id number] 2.16.840.1.827551.3.579.2.531 Social History Date Type Detail Facility Start: 07-08-2023 End: 09-17-2023 Former smoker Former smoker [facility] 250 DO Work Phone: Comment on above: Quit 17 years ago; Quit 25+ years ago; coffee occasionally soda, tea; Start: 08-06-2018 End: 07-08-2023 Tobacco smoking status CTIS Ex-smoker (finding) [facility] Start: 1945 Sex Assigned At Female [facility] Start: 07-08-2023 End: 09-17-2023 Sex Assigned At [facility] Tobacco smoking status Never Mina [facility] End: 07-14-1996 History of tobacco use Current smoker [facility] Work Phone: End: 07-14-1996 History of tobacco use Cigarette Smoker [facility] Work Phone: Start: 07-08-2023 Tobacco use and exposure Smoke less tobacco non-user [facility] Work Phone: Start: 09-17-2023 Alcohol intake Current drinke r of alcohol (finding) [facility] Work Phone: Start: 07-08-2023 Alcohol Comment occasional [facility] Work Phone: Start: 1945 Sex Assigned At Not on file U [facility] Work Phone: Start: 09-07-2023 End: 10-14-2023 Exposure to SARS-CoV-2 (event) Not sure [facility] Start: 08-13-2023 Tobacco smoking stat us NHIS Never smoked tobacco (finding) [facility] Medical Equipment Procedure Code Equipment Code Equipment Origin al Text Equipment Identifier Dates AAA repair with graft GRAFT HEMASHIELD [id number] FDA Start: 07-20-2018 AAA repair with graft IR STENT SMART 9 X 40 120 CM FDA Start: 07-20-2018 AAA repair with graft GRAFT HEMASHIELD [id number] FDA Start: 07-20-2018 AAA repair with graft [...] normal. Allergies Williams inhibitors, Atorvastatin, Spironolactone, and Ycnkbav-rtp-tcm reductase inhibitors Current Medications Current Outpatient Medications: [...] discussion and plan. documented in this encounter [facility] Work Phone: 09-17-2023 Instructions Kaleigh Funez [...] of your visit. documented in this encounter [facility] Work Phone: 09-09-2023 Note [id number]#1.00[facility] 09-09-2023 Note [id number]#1.00[facility] 09-01-2023 Note [id number]#1.00[facility] 08-13-2023 Evaluation note Encounter Date Diagnosis Assessment Notes Jul, Primary osteoarthritis of left hip (ICD-10 - M16.12) Jul, Other We have provided her a few names of [facility] physicians that are currently taking new patients [...] can see her 3 months after that. [employer] Other 09-14-2023 Evaluation note* Encounter Date Diagnosis [...] is considering changing from her current PCP [employer] Other 05-02-2023 Evaluation note* Encounter Date Diagnosis [...] Above note written by Ramandeep Aggarwal LPN, Procedures Nurse. Edited and approved by Dr. Ross Colmenares [...] negative findings were considered in medical decision-making. [employer] Other 05-01-2017 History general Narrative - Reported* Type Description Date Medical History TX Medical History Hyperlipiedmia Medical History PVD Medical History DM Medical History HTN Surgical History Open Heart 11/2016 Surgical History Cardiac Stent 09/2017 Surgical History Cardiac Stent 05/2017 Surgical History C- section 1960 Surgical History Rt iliac angioplasty & stent; Aortobiiliac bifurcation graft 07/20/18 Hospitalization History See above [employer] Other Evaluation + Plan note Future Appointments Appointment Date:03/25/2023 01:00:00 PM Scheduled Provider: Location:[facility] Appointment Type:FM Medicare Wellness Subsequent [facility] assessment information available [facility] Work Phone: Evaluation noteNo InformationNort [employer] Other Evaluation note* Diagnosis CAD, multiple vessel- Primary S/P CABG x 3 Postsurgical aortocoronary bypass status History of angioplasty Primary hypertension Unspecified essential hypertension Ischemic cardiomyopathy Other specified forms of chronic ischemic heart disease Mixed hyperlipidemia BMI 32.0-32.9,adult Former smoker Personal history of tobacco use, presenting hazards to health Occlusion and stenosis of right carotid artery Shortness of breath documented in this encounter [facility] Work Phone: Evaluation note* Diagnosis CAD, multiple vessel S/P CABG x 3 Postsurgical aortocoronary bypass status Ischemic cardiomyopathy Other specified forms of chronic ischemic heart disease Occlusion and stenosis of right carotid artery Shortness of breath documented in this encounter [facility] Work Phone: Evaluation note* Diagnosis Onset Date Resolution Status Osteoarthritis of left hip a cute Type 2 diabetes mellitus with hyperglycemia acute UTI (urinary tract infection) acute Lumbar pain acute Osteoarthritis of left hip a cute Uncontrolled diabetes mellitus acute [facility] Work Phone: History of Present illness Narrative* [...] are reviewed and felt to be satisfactory. [facility] Punchd DO Work Phone: History of Present illness [...] are reviewed and felt to be satisfactory. [facility] P[facility] Work Phone: History of Present illness [...] we suggest no change and follow-up as wigbnEI-Awfmcegklz-Ygfaowkf 250 DO Work Phone: Hospital course Narrative No data available for this section [facility] Discharge instructions No data available for this section [facility] No data available for this section [facility] for referral (narrative)* Consultation (Routine) - Authorized Specialty Diagnoses / Procedures Referred By Dimitri hartley Referred To Contact Cardiology Diagnoses Occlusion and stenosis of right carotid artery Procedures Follow Up In Cardiology Tom Ruano MD [address] [place] [address] [address], [address] [address] Jeimy Braun APRN-ELLIOT [address] [place] [address] 2, [address] [address] Referral ID Status Reason Start Date Expiration Date V isits Requested Visits Authorized [id number] Authorized 09/17/2023 09/16/2024 1 1 * Cardiac Stress Testing (Routine) - Pending Review Specialty Diagnoses / Procedures Referred By Dimitri Referred To Contact Radiology Diagnoses CAD, multiple vessel S/P CABG x 3 Ischemic cardiomyopathy Occlusion and stenosis of right carotid artery Shortness of breath Procedures Nuclear Stress Test CHG MYOCARDIAL SPECT MULTIPLE STUDIES Tom Ruano MD [address] [place] [address] 2, [address] [address] Referral ID Status Reason Start Date Expiration Date V isits Requested Visits Authorized [id number] Pending Review 09/17/2023 09/16/2024 5 5 [facility] Work Phone: Reason for visit NarrativeNEW SELF REFERRAL [facility] [employer] Other Summary Purpose Family History No Family [...] left hip (M16.12) Referral Organization [facility] [employer] [facility] Referring Provider First Name Ross Referring Provider Last Name Darrian Referring Provider Specialty Pain Medici ne Referred Organization [facility] [employer] [facility] Referred Provider Da Lozano II Referred Address [address] [facility] [place],[address] Referred Provider Specialty Orthopedic S urgery Referral [...] SPECT MULTIPLE STUDIES Tom Ruano MD [address] [facility] [address], [address] [place] [address] Referral ID Status Reason Start Date Expiration Date V isits Requested Visits Authorized [id number] Pending Review 09/17/2023 09/16/2024 5 5 Chief [...] section and content) DATE CREATED AUTHOR 12/31/2017 [facility] DATE CREATED AUTHOR AUTHOR'S ORGANIZ ATION 01/07/2018 [facility] DATE CREATED AUTHOR AUTHOR'S ORGANIZ ATION 05/17/2020 [facility] DATE CREATED AUTHOR AUTHOR'S ORGANIZ ATION 02/14/2022 [facility] DATE CREATED AUTHOR AUTHOR'S ORGANIZ ATION 07/26/2022 [facility] DATE CREATED AUTHOR AUTHOR'S ORGANIZ ATION 07/26/2022 [employer] DATE CREATED AUTHOR AUTHOR'S ORGANIZ ATION 03/02/2023 [facility] DATE CREATED AUTHOR AUTHOR'S ORGANIZ ATION 10/16/2023 [facility] DATE CREATED AUTHOR AUTHOR'S ORGANIZ ATION 10/18/2023 [facility] DATE CREATED AUTHOR AUTHOR'S ORGANIZ ATION 11/21/2023 [facility] Care Teams (unrecognized sec tion and content) Team Status: Active Member Role Status Dates Li Lee MD Primary Care Provider Active Team Status: Inactive Member Role Status Dates Li Lee MD Primary Care Provider Active Ross Colmenares MD Attending Provider Active [employer] Specialist Relationship Specialty Start Date End Date Tom Ruano MD [address] [facility] 2, [facility] [address] [place] [address] PCP - MSSP ACO Attributed Provider 01/11/23 Stefan Best MD [address] [place] [address] [place] [address] PCP - General Family Medicine 09/17/23 [employer] Specialist Relationship Specialty Start Date End Date Tom Ruano MD [address] [facility] [address], [address] [place] [address] PCP - MSSP ACO Attributed Provider 01/11/23 Stefan Best MD [address] [place] [address] [place] [address] PCP - General Family Medicine 09/17/23 [employer] Specialist Relationship Specialty Start Date End Date Tom Ruano MD [address] [facility] [address], [address] [place] [address] PCP - MSSP ACO Attributed Provider 01/11/23 Stefan Best MD [address] [place] [address] [place] [address] PCP - General Family Medicine 09/17/23 [employer] Specialist Relationship Specialty Start Date End Date Tom Ruano MD [address] [facility] [address], [address] [place] [address] PCP - MSSP ACO Attributed Provider 01/11/23 Stefan Best MD [address] [place] [address] [place] [address] PCP - General Family Medicine 09/17/23 [employer] Specialist Relationship Specialty Start Date End Date Tom Ruano MD [address] [facility] [address], [address] [place] [address] PCP - [facility] ACO Attributed Provider 01/11/23 Stefan Best MD [address] [place] [place] [address] [address] [place] [address] PCP - General Family Medicine 09/17/23 Team [...] SPECT MULTIPLE STUDIES Tom Ruano MD [address] [facility] [address], [address] [place] [address] Referral ID Status Reason Start Date Expiration Date V isits Requested Visits Authorized [id number] Pending Review 09/17/2023 09/16/2024 5 5 FOR [...] BE BASED ON THE PRIMARY CLINICAL RECORDS. [employer] [facility]. provides no warranty or guarantee of the accuracy or completeness of information in this document.
[2023-11-22 11:39] LABS: Estimated Average Glucose 160 mg/dL; Glycohemoglobin A1C 7.2 % (4.5-6.2)
== END 2023-11-22 10:46 | disposition home or self-care (01) ==
PROVIDERS: PCP Family Medicine; Visit Provider Family Medicine
DX: E11.65 Type 2 diabetes mellitus with hyperglycemia (principal); Z79.4 Long term (current) use of insulin
CPT/HCPCS: 36415; 83036

== ENCOUNTER 2023-12-06 11:53 | Outpatient (OUT) | payer MEDICARE, SELFPAY ==
--- OUTSIDE RECORDS SUMMARY | 2023-12-06 11:57 | XMS_ITS | CCD ---
Author Organization [facility] Care Team Providers Care Lock Corner Machine Operator Name Role Phone BLAKE KUO Unavailable Unavailable SHITAL, LI Unavailable Unavailable BLAKE KUO Unavailable Unavailable LI LEE Unavailable Unavailable PHYSICIAN, DEFAULT Unavailable Unavailable PHYSICIAN, DEFAULT Unavailable Unavailable Li Lee Unavailable Unavailable Unavailable SHITAL, DR LI Conley Primary Care Unavailable LEE, DR LI Conley Admitting Unavailable LEE, DR LI Conley Attending Unavailable LEE, DR LI Conley Consulting Unavailable Sumter, DR Ren Consulting Unavailable LEE, DR LI [...] Attending Unavailable MCGUINN, DR MARKHAM Consulting Unavailable SHITAL, DR LI Conley Consulting Unavailable SHITAL, DR LI Conley Primary Care Unavailable LEE, DR LI Conley Admitting Unavailable LEE, DR LI Conley Attending Unavailable McGuinTom foss II Referring Unav ailable Li Lee Primary Care Unavailable McGuinTom foss II Attending Unav ailable McGuinn Tom GUILLERMO Referring Unav ailable Li Lee Primary Care Unavailable McGuinTom foss II Attending Unav ailable MD Li Lee Primary Care Provider [phone] MD Ross Colmenares Attending Provider Ross Colmenares Unavailable Maxine Llanes Primary Care Physician Da Lozano II [phone] Tom Ruano MD Unavailable [phone] Stefan Best MD Primary Care Provider TOM [...] Attending Unavailable Shraddha, Maxine L Attending Unavailable Da Lozano II Attending UnavailStefan Wiseman Primary Care Unavailable Da Lozano II Admitting UnavailDa Aranda II Attending UnavailLi Parker Primary Care Unavailable Da Lozano II Admitting MD Stefan Rios Primary Care Provider [phone] MD Da Lozano II Attending Provider [phone] Allergies Allergy Classification Reported Allergen(s) Allergy Type Date of Onset Reaction(s) Facility (15 sources) Angiotensin Converting Enzyme (Williams) Inhibitors; Translations: [WILLIAMS Inhibitors] Allergy to drug (finding) 3 Hyperkalemia, Other Hospitals 3 Repository (20 sources) atorvastatin; Translations: [atorvastatin] Drug Allergy 3 Myalgia [facility] (13 sources) Hmg-Coa Reductase Inhibitors (Statins); Translations: [Statins] Allergy to drug (finding) Myalgia [facility] 250 DO Work Phone: (5 sources) rosuvastatin; Translations: [rosuvastatin] Drug Allergy Myalgia [facility] 250 DO Work Phone: (20 sources) Spironolactone; Translations: [spironolactone] Drug Allergy 3 Other -[facility] 250 DO Work Phone: (1 source) Iodine (And Iodine Containting Drugs) Drug allergy (disorder) [facility] Repository (1 source) Pravastatin Drug Allergy [facility] Repository (2 sources) Simvastatin Drug Allergy [facility] Repository (1 source) Sulfonamides (Antibiotic) Drug allergy (disorder) [facility] Repository (6 sources) Adhesive Tape Drug allergy rash [facility] [employer] Other (2 sources) Pravastatin; Translations: [pravastatin] Drug Allergy Unknown [facility] (11 sources) Angiotensin-conv erting enzyme inhibitor agent Drug Allergy 3 Other [facility] (13 sources) HMG-CoA reductase inhibitor; Translations: [CQZMUWE-SGM-YZK REDUCTASE INHIBITORS] Drug Allergy 3 Myalgia [facility] Work Phone: (1 source) Adhesive Tape Drug allergy (disorder) 4 [facility] Repository Medications Current Medications Medication Drug Class(es) Dates Sig (Normalized) Sig (Original) acetaminophen 325 mg oral tablet (11 sources) Start: 07-20-2018 take 2 tablets by [...] Platelet Aggregation Inhibitor, Nonsteroidal Anti-inflammatory Drug Start: 05-14-2017 take 1 tablet by mouth once daily aspirin 81 mg EC tablet Indications: CAD, multiple vessel TAKE ONE TABLET BY MOUTH DAILY 90 tablet 3 08/08/2023 Active take 1 tablet by dayo every twenty-four [...] Start: 09-11-2017 take 1 capsule by mo [facility] once daily Cholecalciferol (Vitamin D3) (Vitamin D3) [...] Active docusate sodium 100 mg oral capsule (19 sources) Start: 06-23-2017 take 1 capsule by mouth twice daily Docusate Sodium (Colace) 100 mg Capsule Active 100 MG PO Twice daily June 23, 2017 1:00am take 1 capsule by mo [facility] every twenty-four hours Colace 100 MG 1 [...] Start: 06-15-2021 take 1 capsule by mo [facility] twice daily Gabapentin 300 MG Oral Capsule [...] Discontinued 300 MG PO Twice daily 60 June 25, 2017 1:00am September 11, 2017 [...] 25, 2017 11:51am take 1 capsule by [facility] every twenty-four hours Gabapentin 300 MG 1 [...] Daily, # 15 mL, Refills(s) 2, Pharmacy: [facility] 1155, 140.6, cm, 02/10/23 11:29:00 EDT, Height/Length Dosing, 79.2, kg, 02/10/23 11:29:00 EDT, Weight Dosing Start Date: 02/10/23 Status: Ordered Start: 02-07-2023 Basaglar KwikP en 100 units/mL subcutaneous solution See Instructions, 50 units daily, # 15 mL, Refills(s) 0, Pharmacy: [place] [id number] Start Date: 02/07/23 Status: Ordered Start: 01-31-2021 [...] 9:05am Basaglar KwikPen 100 UNIT/ML Subcutaneous Active 24 hr oxybutynin chloride 10 mg extended release oral tablet (20 sources) Cholinergic Muscarinic Antagonist Start: 11-27-2023 take 10 mg by mouth once daily Oxybutynin Chloride Active 10 MG PO Daily November 27, 2023 12:00am Start: 07-03-2023 End: 11-27-2023 take 5 mg by mouth once daily Oxybutynin Chloride Disc ontinued 5 MG PO Daily September 12, 2023 1:00am November 27, 2023 2:32pm Start: 02-10-2023 take 1 tablet by dayo th once daily oxybutynin 10 mg ER Tab 10 mg = 1 tab(s), Oral, Daily, # 90 tab(s), Refills(s) 0, Pharmacy: [place] [id number], 140.6, cm, 02/10/23 11:29:00 EDT, Height/Length Dosing, 79.2, kg, 02/10/23 11:29:00 EDT, Weight Dosing Start Date: 02/10/23 Status: Ordered Start: 02-05-2023 oxybutynin 5 m g ER Tab 30 tab(s), Refills(s) 0 Start Date: 02/05/23 Status: Ordered Start: 10-15-2021 take 1 tablet by dyao th every twenty-four hours in the morning [...] acid 500 mg extended release oral capsule (10 sources) Vitamin C Start: 09-11-2017 End: 09-09-2023 [...] Orally Active atorvastatin 80 mg oral tablet (8 sources) HMG-CoA Reductase Inhibitor Start: 05-14-2017 End: 06-23-2017 take 80 mg by mouth once daily Atorvastatin Discontinued 80 MG PO Daily May 14, 2017 12:00am June 23, 2017 4:33pm lisinopril 2.5 mg oral tablet (19 sources) Angiotensin Converting Enzyme Inhibitor Start: 05-14-2017 End: 07-20-2018 take 2.5 mg by mouth once daily Lisinopril Discontinued 2.5 MG PO Daily May 14, 2017 12:00am July 20, 2018 7:43am take 1 tablet by dayo th every twenty-four hours Lisinopril 5 MG 1 tablet Orally Once a day Active losartan potassium 25 mg oral tablet (3 sources) Angiotensin 2 Receptor Miquel Start: 07-20-2018 End: 09-09-2023 take 25 mg by mouth once daily at bedtime Losartan Discontinued 25 MG PO Daily at bedtime July 20, 2018 1:00am September 09, 2023 4:26pm metoprolol tartrate 25 mg oral tablet (14 sources) beta-Adrenergic Miquel Start: 05-14-2017 End: 06-23-2017 [...] Quantity: 60 Refills: 0 Ordered: 19-Dec-2016 [employer] 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 Quantity: 0 Refills: 0 Ordered: 19-Dec-2016 DO Active nitroglycerin 0.4 mg sublingual tablet (3 sources) Nitrate Vasodilator Start: 2016 End: 2023 Nitroglycerin (Nitrostat) 0.4 mg Tablet, Sublingual Discontinued 0.4 MG SUBLINGUAL Q5M June 23, 2017 1:00am September 09, 2023 4:27pm regadenoson (Lexiscan) injection 0.4 mg (2 sources) Start: 2023 End: 2023 regadenoson (Lexiscan) injection 0.4 mg spironolactone 25 mg oral tablet (14 sources) Aldosterone Antagonist Start: 2016 End: 2023 take 1 tablet by mouth once daily in the morning Spironolactone (Aldactone) 25 mg Tablet Discontinued 25 MG PO Every morning June 23, 2017 1:00am September 09, 2023 4:27pm sulfamethoxazole 800 mg / trimethoprim 160 mg oral tablet (1 source) Dihydrofolate Reductase Inhibitor Antibacterial, Sulfonamide Antimicrobial Start: 2023 End: 2023 take 1 tablet by mouth twice daily Sulfamethoxazole-Trimet hoprim Discontinued 1 TAB PO Twice daily October 23, 2023 12:00am November 27, 2023 2:06pm Tc-99m tetrofosmin (Myoview) injection 10 millicurie (2 sources) Start: 2023 End: 2023 Tc-99m tetrofosmin (Myoview) injection 10 millicurie Tc-99m tetrofosmin (Myoview) injection 30 millicurie (2 sources) Start: 2023 End: 2023 Tc-99m tetrofosmin (Myoview) injection 30 millicurie traMADol hydrochloride 50 mg oral tablet (3 sources) Opioid Agonist Start: 2018 End: 2018 take 50 mg by mouth every four to six hours Tramadol Discontinued 50 MG PO EVERY 4-6 HOURS 20 July 24, 2018 1:00am July 31, 2018 1:02am Vitamin B Complex (9 sources) Start: 2016 End: 2018 take 1 tablet by mouth once daily [...] disease, unspecified; Translations: [Atherosclerotic heart disease of [place] coronary artery without angina pectoris] Onset: 8 09-17-2023 Chronic Coronary atherosclerosis and other heart disease (4 sources) Presence of aortocoronary bypass graft; Translations: [Presence of aortocoronary bypass graft] Onset: 3 Episodic Diabetes mellitus with complications (18 sources) Type 1 diabetes mellitus with unspecified [...] cerebral infarction] Onset: 3 09-17-2023 Chronic Osteoarthritis (20 sources) Osteoarthritis of left hip joint; Translations: [Unilateral primary osteoarthritis, left hip] Onset: 4 Chronic Osteoporosis (2 sources) Age-related osteoporosis without current pathological fracture; Translations: [Osteoporosis] Onset: 4 11-24-2023 Chronic Other aftercare (1 source) Other terminal make up operator (current) drug therapy; Translations: [Other prison (current) drug therapy] Onset: 4 Episodic Other aftercare (1 source) Long-term current use of drug therapy; Translations: [Other prison (current) drug therapy] 11-24-2023 Episodic Other circulatory disease (2 sources) Peripheral vascular angioplasty status; Translations: [Peripheral vascular angioplasty status] Onset: 3 Episodic Other diseases of bladder and urethra (1 source) Overactive bladder; Translations: [Overactive bladder] 11-27-2023 Chronic Other diseases of bladder and urethra (1 source) Overactive bladder; Translations: [Hypertonicity of bladder] 11-27-2023 Chronic Other lower respiratory disease (5 sources) Dyspnea; Translations: [Shortness of breath] Onset: 4 09-17-2023 Episodic Other lower respiratory disease (2 sources) Shortness of breath; Translations: [Shortness of breath] Onset: 4 Episodic Other nervous system disorders (8 sources) Chronic pain; Translations: [Other chronic pain] 09-29-2023 Chronic Other nervous system disorders (1 source) Other chronic pain Chronic Other non-traumatic joint disorders (1 source) Pain in left hip Episodic Other non-traumatic joint disorders (2 sources) Hip pain; Translations: [Pain in left hip] [...] Spondylosis; intervertebral disc disorders; other back problems (8 sources) Sciatica, unspecified side; Translations: [Sciatica, left side] Onset: 2 09-29-2023 Episodic Unclassified (1 source) Peripheral vascular disease, unspecified [...] Unclassified (2 sources) Athscl heart disease of [place] coronary artery w/o ang pctrs / I25.10(ICD-9) Onset: 8 Unclassified (1 source) Abnormal electrocardiogram [ECG] [EKG] / R94.31(ICD-9) Onset: 8 Unclassified (1 source) Presence of aortocoronary bypass graft / Z95.1(ICD-9) Onset: 8 Unclassified (1 source) Old myocardial infarction / I25.2(ICD-9) Onset: 8 Unclassified (1 source) Patient encounter status 02-10-2023 Unclassified (1 source) Pain in left hip; Translations: [Pain in left hip] Onset: 3 Urinary tract infections (4 sources) Urinary tract infectious disease; Translations: [Urinary [...] Name Value Interpretation Reference Range Facil ity A1C with Estimated Average G svenn 12-02-2023 Glucose [Mass/Vol] 166 mg/dL Normal [facility] Comment on above: Result Comment: PERF ORMED BY: [place] [address] PATHOLOGIST AUTOMOTIVE TIRE WORKER CORAL BECKETT M.D. Performed By: #### A LB, HGB, [id number], CUMRSA, A1C WT eA #### [address] HbA1c (Bld) [Mass fraction] 7.4 % High 4.3-5.6 [facility] Comment on above: Result Comment: Incr eased risk for diabetes: 5.7 - 6.4 diabetes: >6.4 glycemic control for adults with diabetes: <7.0 Performed By: #### A LB, HGB, [id number], CUMRSA, A1C WTH eA #### [facility] [address] Albumin Levelon 12-02-2023 Albumin [Mass/Vol] 3.7 g/dL Normal 3.5-5.7 [facility] Comment on above: Performed By: #### A LB, HGB, [id number], CUMRSA, A1C WTH eA #### [address] Albumin [Mass/volume] in Ser um or Plasma by Bromocresol green (BCG) dye binding methoOrdered By: Da Lozano on 12-02-2023 Albumin BCG dye [Mass/Vol] 3.7 g/dL 3.5-5.7 [facility] Glucose mean value [Mass/vol ume] in Blood Estimated from glycated hemoglobinOrdered By: Da Lozano on 12-02-2023 Average glucose Estimated from glycated hemoglobin (Bld) [Mass/Vol] 166 mg/dL [facility] Hemoglobinon 12-02-2023 Hemoglobin (Bld) [Mass/Vol] 10.3 g/dL Low 11.8-15.4 [facility] Comment on above: Result Comment: PERF ORMED BY: [place] [address] PATHOLOGIST AUTOMOTIVE TIRE WORKER CORAL BECKETT M.D. Performed By: #### A LB, HGB, [id number], CUMRSA, A1C WTH eA #### [address] Hemoglobin A1c percentageOrd ered By: Da Lozano on 12-02-2023 HbA1c (Bld) [Mass fraction] 7.4 % 4.3-5.6 [facility] Comment on above: Increased risk for d iabetes: 5.7 - 6.4diabetes: >6.4glycemic control for adults with diabetes: <7.0 Hemoglobin [Mass/volume] in BloodOrdered By: Da Lozano on 12-02-2023 Hemoglobin (Bld) [Mass/Vol] 10.3 g/dL 11.8-15.4 [facility] MRSA Cultureon 12-02-2023 MRSA Culture No MRSA Isolated 2 Days * This is a corrected result. * A prior result that was reported as final has been changed. Added 2 day read result to report. PERFORMED BY: [place] [id number] PATHOLOGIST AUTOMOTIVE TIRE WORKER CORAL BECKETT M.D. Normal [facility] Comment on above: Performed By: #### A LB, HGB, [id number], CUMRSA, A1C WTH eA #### [address] [address] [facility] Vitamin D 25 Hydroxy Totalon 12-02-2023 Vitamin D 25 Hydroxy Total 91.9 ng/mL Normal 30-100 [facility] Comment on above: Result Comment: ROBERTO MIN D STATUS 25(OH)VITAMIN D RANGE (ng/mL) Deficient <20 Insufficient 20 to <30 Sufficient 30 to 100 Reference: Laney MF,Abhijeet NC, Stacey CHATMAN, et al. Evaluation,treatment, and prevention of vitamin D deficiency; an Endocrine Society clinical practice guideline. JCEM. 2010; 96(7):1911-30. PERFORMED BY: [address] [place] [id number] PATHOLOGIST AUTOMOTIVE TIRE WORKER CORAL BECKETT M.D. Performed By: #### A LB, HGB, [id number], CUMRSA, A1C WTH eA #### [facility] [address] [place] [address] [place] Vitamin D+Metabolites [Mass/ volume] in Serum or PlasmaOrdered By: Da Lozano on 12-02-2023 Vitamin D+Metabolites [Mass/Vol] 91.9 ng/mL 30-100 [facility] Comment on above: VITAMIN D STATUS 25( [place])VITAMIN D RANGE (ng/mL) Deficient <20 Insufficient 20 to <30Sufficient 30 to 100Reference: Laney MF,Abhijeet NC, Stacey CHATMAN, et al. Evaluation,treatment, and prevention of vitamin D deficiency; an Endocrine Society clinical practice guideline. JCEM. 2010; 96(7):1911-30. Glucose mean value [Mass/vol ume] in Blood Estimated from glycated hemoglobinon 11-22-2023 Average glucose Estimated from glycated hemoglobin (Bld) [Mass/Vol] 160 mg/dL [facility] Laboratory - Hematology and Cell countson 11-22-2023 HbA1c (Bld) [Mass fraction] 7.2 % 4.5-6.2 [facility] Comment on above: ADA RECOMMENDED LIMI T 4.0 - 6.0ADA THERAPEUTIC TARGET < 7.0ACTION SUGGESTED> 7.0 Laboratory - Chemistry and C hemistry - challengeon 10-23-2023 Bilirubin Ql (U) Negative [facility] Glucose (U) [Mass/Vol] Negative [facility] Ketones Ql (U) Negative [facility] pH (U) 5 [pH] [facility] Specific gravity (U) [Rel density] 1.000 [facility] Urobilinogen (U) [Mass/Vol] 0.2 mg/dL [facility] Laboratory - Specimen inform ationon 10-23-2023 Appearance (U) Cloudy [facility] Color (U) Yellow [facility] Laboratory - Urinalysison Leukocyte esterase Test strip Ql (U) +++ [facility] Nitrite Ql (U) Negative [facility] Protein Ql (U) Negative [facility] No Panel Informationon 10-22 Urine Occult Blood Negative [facility] Home Health Recordson 2023 Home Health Records [id number] #1.00TIFF Normal [facility] NM Heart Perfusion W stress and W radionuclide [place] 10-14-2023 Abnormal TriPlayiscan Myoview cardiac perfusion stress test. No myocardial ischemia by perfusion imaging. No myocardial infarction by perfusion imaging. Abnormal left ventricular systolic function with mild global hypokinesis. Left ventricular ejection fraction 48 %. No previous studies are available for comparison. Signed by: Charlotte Cordon 10/14/2023 4:27 PM Dictation workstation: [id number] Interpreted By: Charlotte Cordon and Giannuzzi Michael STUDY: MYOCARDIAL PERFUSION STRESS TEST WITH LEXISCAN Performing facility: [facility], [address] [place] [address], [address], [address] Provider: Joey Ruano MD, [facility] PCP: Dr. Marsha Best Supervising provider: Joey Cobb DO, [facility] INDICATION: CAD; CABG ICM SOB; HISTORY: Gender: F; Age: 78 y/o ; Height: HT 149.9 cm cm; Weight: WT 74.844 kg kg. High Cholesterol; CAD; Diabetes; Previous NM; HTN; SOB; Quit smoking 27 years ago. Cardiac catheterization on 2016. PTCA on 2016. CABG on 2017. COMPARISON: No comparison. ACCESSION NUMBER(S): [id number] ORDERING CLINICIAN: TOM RUANO TECHNIQUE: ONE DAY [...] There was no evidence of attenuation artifact. [facility] Charlotte Cordon MD - 10/14/2023 Interpreted By: Charlotte Cordon and Giannuzzi Michael STUDY: MYOCARDIAL PERFUSION STRESS TEST WITH LEXISCAN Performing facility: [facility], [address] [place] [address], [address], [address] Provider: Joey Ruano MD, [facility] PCP: Dr. Marsha Best Supervising provider: Joey Cobb DO, [facility] INDICATION: CAD; CABG ICM SOB; HISTORY: Gender: F; Age: 78 y/o ; Height: HT 149.9 cm cm; Weight: WT 74.844 kg kg. High Cholesterol; CAD; Diabetes; Previous NM; HTN; SOB; Quit smoking 27 years ago. Cardiac catheterization on 2017. PTCA on 2017. CABG on 2017. COMPARISON: No comparison. ACCESSION NUMBER(S): [id number] ORDERING CLINICIAN: TOM RUANO TECHNIQUE: ONE DAY [...] are available for comparison. Signed by: Charlotte oCrdon 10/14/2023 4:27 PM Dictation workstation: [id number] [facility] Work Phone: Radiology Study observation (narrative) [facility] Work Phone: NM Heart Perfusion W stress and W radionuclide IVOrdered By: Charlotte Cordon on 10-14-2023 [facility] Work Phone: NUCLEAR STRESS TESTon 2023 NUCLEAR STRESS TEST Interpreted By: Charlotte Cordon and Omar Hernanedz STUDY: MYOCARDIAL PERFUSION STRESS TEST WITH LEXISCAN Performing facility: [facility], [address] [place] [address], [address], [address] Provider: Joey Ruano MD, [facility] PCP: Dr. Marsha Best Supervising provider: Joey Cobb DO, [facility] INDICATION: CAD; CABG ICM SOB; HISTORY: Gender: F; Age: 78 y/o ; Height: HT 149.9 cm cm; Weight: WT 74.844 kg kg. High Cholesterol; CAD; Diabetes; Previous NM; HTN; SOB; Quit smoking 27 years ago. Cardiac catheterization on 2016. PTCA on 2017. CABG on 2017. COMPARISON: No comparison. ACCESSION NUMBER(S): [id number] ORDERING CLINICIAN: TOM RUANO TECHNIQUE: ONE DAY [...] Charlotte Cordon 10/14/2023 4:27 PM Dictation workstation: [id number] [facility] Home Health Recordson 2023 Home Health Records [id number] #1.00TIFF [facility] Retail - Clinical Noteon Retail - Clinical Note [id number] #1.00TIFF [facility] Home Health Recordson 2023 Home Health Records [id number] #1.00TIFF [facility] Home Health Recordson 2023 Home Health Records [id number] #1.00TIFF [facility] Home Health Records [id number] #1.00TIFF [facility] Home Health Recordson 2023 Home Health Records [id number] #1.00TIFF [facility] Home Health Recordson 2023 Home Health Records [id number] #1.00TIFF [facility] ECG 12-Leadon 09-09-2023 ECG 12-Lead [id number] #1.00TIFF Normal [facility] Home Health Recordson 2023 Home Health Records [id number] #1.00TIFF [facility] ED Note-Physicianon 09-01-19 ED Note-Physician [id number] #1.00TIFF [facility] RAD - MISCon 09-01-2023 RAD - MISC [id number] #1.00TIFF [facility] Ambulatory Visit Summaryon 0 08-21-2023 Ambulatory Visit [...] This Is Your Medications List Misc Prescription ([facility] D[facility] Prescription) acetaminophen (Tylenol) [...] 3:40 PM EDT With: Maxine Sanchez Where: [facility] Family Medicine [place] Normal [facility] Family Medicine Office/Clini c Noteon 08-21-2023 Family [...] clutter to prevent tripping and/or falling. [place] Advance Directives reviewed, patient has on file with controls designer office. Patient denies any problems with ADL?s [...] f (more content not included)... Normal [facility] Comment on above: Result Comment: Elec [...] EST, Weight Dosing HgbA1c Lab Specimen Collect [id number] 3. 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 Normal [facility] Comment on above: Result Comment: Elec tronically Signed By: Maxine Sanchez\.br\Date and Time Signed: 08/21/23 08:02 EST Formson 08-21-2023 Forms [id number] #1.00TIFF [facility] [id number] 08-21-2023 HbA1c (Bld) [Mass fraction] 8.2 % High <=5.9 [facility] Comment on above: Performed By: #### [id number] ####[facility] [id number] [place] [address] Patient Educationon 08-21-19 24 Patient Education Caregiving [...] night-lights. ? Place frequently used items in ojlg-zg-dmgih places. Lower the shelves around your home [...] the way. ? Do not use floor kyrgyz or wax that makes floors slippery. If [...] include working with a physical therapist or adjunct trainer to improve your strength, balance, and endurance. Where to find more information ? Centers for Disease Control and Prevention, [place]: www.cdc.gov ? National [place] on Aging: [email or web address].nih.gov Contact a health care [...] ca (more content not included)... Normal [facility] Ambulatory Visit Summaryon 0 08-20-2023 Ambulatory Visit Summary LEXI TATUM Nestor :1945 Visit Date:08/20/2023 Ambulatory Visit Instructions Your Diagnosis Chronic kidney disease, stage 3 unspecified Your Care Team Attending Physician - Maxine Sanchez Primary Care Physician - Maxine Sanchez This Is Your Medications List Misc Prescription ([facility] Prescription) acetaminophen (Tylenol) [...] 3:40 PM EDT With: Maxine Sanchez Where: [facility] Family Medicine [facility] Ambulatory Visit Summary LEXI TATUM :1945 Visit [...] for choosing us for your care. Normal [facility] Pre-Visit Planningon 023 Pre-Visit Planning - From: Bibiana Walter To: Maxine Sanchez; Sent: 05/20/2023 08:13:06 EST Subject: Pre-Visit Planning Due Date/Time: 05/20/2023 08:13:00 EST Caller Name: LEXI TATUM; Caller Number: , M Good morning Maxine. During a [...] feel free to contact me at extension [phone]. Thank you! Bibiana Walter LPN - From: Maxine Sanchez To: Bibiana Walter; Sent: 05/28/2023 14:06:51 EST Subject: RE: Pre-Visit Planning Caller Name: LEXI TATUM; Caller Number: H , M chronic kidney disease stage 3, unspecified Normal [address] [place] [address] Pre-Visit Planning - From: Bibiana Walter To: [...] with Type 1 diabetes and hypercholesterolemia Normal [address] [place] [address] Ambulatory Visit Summaryon 07-21-2022 Ambulatory Visit Summary LEXI TATUM :1945 [...] 11:00 AM EST With: Maxine Sanchez Where: [facility] Normal [facility] Medicine Office/Clini c Noteon 05-21-2023 Family [...] 3 months. Ordered: HgbA1c Lab Specimen Collect [id number] 2. Long-term insulin use (Z79.4: long-term (current) use of insulin) see above Ordered: HgbA1c Lab Specimen Collect [id number] 3. Former smoker (Z87.891: Personal history of [...] virus vaccine, inactivated 07/03/2022 Recorded SARS-CoV-2 (COVID-19) mRNAMUL.[id number] 06/17/2022 Recorded 2023-02-10: TPV75 SARS-CoV-2 (COVID-19) mRNA [...] pneumococcal 13-valent vaccine 10/30/2016 Recorded Normal [facility] Comment on above: Result Comment: Elec tronically Signed By: Maxine Sanchez\.br\Date and Time Signed: 05/21/23 13:14 EST [id number] 05-21-2023 HbA1c (Bld) [Mass fraction] 8.7 % High <=5.9 [facility] Comment on above: Performed By: #### 7 [id number] #### [facility] [address] [place] [address] Ambulatory Visit Summaryon 0 03-05-2023 Ambulatory Visit [...] Appointments Friday 1:00 PM EDT With: Where: [place] [id number]- \.br\ Medications\.br\ What How Much When Why [...] incontinence\.br\ Vitamin D deficiency\.br\ Wellness examination\.br\ \.br\ [facility] Family Medicine Office/Clini c Noteon 03-05-2023 [...] continue BS log. may consider referral to heel coverer at that visit. 2. Flank pain (R10.9: [...] virus vaccine, inactivated 07/03/2022 Recorded SARS-CoV-2 (COVID-19) mRNAMUL.[id number] 06/17/2022 Recorded 2023-02-10: TPV75 SARS-CoV-2 (COVID-19) mRNA [...] pneumococcal 13-valent vaccine 10/30/2016 Recorded Normal [facility] Comment on above: Result Comment: Elec tronically Signed By: Maxine Sanchez.mane\Date and Time Signed: 03/05/23 14:10 EDT Retail - Clinical Noteon Retail - Clinical Note [id number] #[id number] Normal [facility] Family Medicine Office/Clini c Noteon 02-11-2023 Family Medicine Office/Clinic Note HPI Staff Lexi is a 77 year old female presenting to establish care Establish Care: History: Any previous diagnosis: acute systolic heart failure, CKD stage 4, Diabetic peripheral neuropathy, Vitamin D deficiency, Type 1 diabetes, gout, osteoarthritis, pure hypercholesterolemia History of seeing any specialist: Dr Echeverria [place] heart, Dr Zhang [place] specialist, Pain Management Dr Blake Baez hip injections, Dr Rust R Programmer When was your last doctors visit: Last provider: Any recent labs: 01/30/22 A1c 9.4 Health Maintenance UTD: Colonoscopy: aged out Mammogram: aged out Pelvic/Pap: aged out Acute: Current issues/complaints: Pt would like to discuss Incontinence currently is taking oxybutynin 5mg daily, pt knows she she has to go and is unable to stop flow. Edema: pt would like to discuss pt states Slackman isn't concerned Pt needs refill on Basaglar, [...] Daily, # 90 tab(s), Refills(s) 0, Pharmacy: [facility], 140.6, cm, 02/10/23 11:29:00 EDT, Height/Length Dosing, 79.2, kg, 02/10/23 11:29:00 EDT, Weight Dosing Automated Diff CBC w/ Auto Diff Comprehensive Metabolic Panel eGFR HgbA1c Lab Specimen Collect [id number] Lipid Panel Thyroid Stimulating Hormone Vitamin D 25 Hydroxy 2. BMI 40.0-44.9, adult (Z68.41: Body mass index [BMI] 40.0-44.9, adult) BMI education complete Ordered: oxybutynin, 10 mg = 1 tab(s), Oral, Daily, # 90 tab(s), Refills(s) 0, Pharmacy: [facility], 140.6, cm, 02/10/23 11:29:00 EDT, Height/Length Dosing, 79.2, kg, 02/10/23 11:29:00 EDT, Weight Dosing Lab Specimen Collect [id number] Vitamin D 25 Hydroxy 3. Former smoker (Z87.891: Personal history of nicotine dependence) continue not smoking Ordered: oxybutynin, 10 mg = 1 tab(s), Oral, Daily, # 90 tab(s), Refills(s) 0, Pharmacy: [email or web address], 140.6, cm, 02/10/23 11:29:00 EDT, Height/Length Dosing, 79.2, kg, 02/10/23 11:29:00 EDT, Weight Dosing Lab Specimen Collect [id number] Vitamin D 25 Hydroxy 4. Type 1 [...] Shoppe (more content not included)... Normal [facility] Comment on above: Result Comment: Elec [...] Follow-Up Appointments Friday 1:00 PM EDT Where: [facility] Normal [facility] Auto Diffon 02-10-2023 Basophils/100 WBC (Bld) 0.4 % Normal 0.0-2.0 [facility] Comment on above: Order Comment: Order Added by Discern Expert. Performed By: #### 7 [id number] #### [facility] [address] [place] [address] Basophils/Leukocyt es Auto (Bld) [Pure # fraction] 0.0 E9/L Normal 0.0-0.2 [facility] Comment on above: Order Comment: Order Added by Discern Expert. Performed By: #### 7 [id number] #### [facility] [address] [place] [address] Eosinophils/100 WBC (Bld) 2.6 % Normal 0.0-8.0 [facility] Comment on above: Order Comment: Order Added by Discern Expert. Performed By: #### 7 [id number] #### [facility] [address] [place] [address] Eosinophils/Leukoc ytes Auto (Bld) [Pure # fraction] 0.2 E9/L Normal 0.0-0.5 [facility] Comment on above: Order Comment: Order Added by Discern Expert. Performed By: #### 7 [id number] #### [facility] [address] [place] [address] Lymphocytes/100 WBC (Bld) 23.0 % Normal 14.0-50.0 [facility] Comment on above: Order Comment: Order Added by Vianney Expert. Performed By: #### 7 [id number] #### [facility] [address] [place] [address] Lymphocytes/Leukoc ytes Auto (Bld) [Pure # fraction] 1.8 E9/L Normal 1.0-4.0 [facility] Comment on above: Order Comment: Order Added by Discern Expert. Performed By: #### 7 [id number] #### [facility] [address] [place] [address] Monocytes/100 WBC (Bld) 6.6 % Normal 4.0-14.0 [facility] Comment on above: Order Comment: Order Added by Discern Expert. Performed By: #### 7 [id number] #### [facility] [address] [place] [address] Monocytes/Leukocyt es Auto (Bld) [Pure # fraction] 0.5 E9/L Normal 0.2-1.0 [facility] Comment on above: Order Comment: Order Added by Discern Expert. Performed By: #### 7 [id number] #### [facility] [address] [place] [address] Neutrophils/100 WBC (Bld) 67.4 % Normal 36.0-75.0 [facility] Comment on above: Order Comment: Order Added by Discern Expert. Performed By: #### 7 [id number] #### [facility] [address] [place] [address] Neutrophils/Leukoc ytes Auto (Bld) [Pure # fraction] 5.1 E9/L Normal 2.0-7.5 [facility] Comment on above: Order Comment: Order Added by Discern Expert. Performed By: #### 7 [id number] #### [facility] [address] [place] [address] CBC w/ Auto Diffon Erythrocyte distribution width (RBC) [Ratio] 16.0 % High 10.9-14.2 [facility] Comment on above: Performed By: #### 7 [id number] #### [facility] [address] [place] [address] Hematocrit (Bld) [Volume fraction] 40.5 % Normal 34.0-46.0 [facility] Comment on above: Performed By: #### 7 [id number] #### [facility] [address] [place] [address] Hemoglobin (Bld) [Mass/Vol] 13.5 g/dL Normal 12.0-16.0 [facility] Comment on above: Performed By: #### 7 [id number] #### [facility] [address] [place] [address] MCH (RBC) [Entitic mass] 31.7 pg Normal 27.0-34.0 [facility] Comment on above: Performed By: #### 7 [id number] #### [facility] [address] [place] [address] MCHC (RBC) [Mass/Vol] 33.3 g/dL Normal 31.4-36.0 [facility] Comment on above: Performed By: #### 7 [id number] #### [facility] [address] [place] [address] MCV (RBC) [Entitic vol] 95.4 fL Normal 80.0-100.0 [facility] Comment on above: Performed By: #### 7 [id number] #### [facility] [address] [place] [address] Platelet mean volume (Bld) [Entitic vol] 10.1 fL Normal 6.4-10.8 [facility] Comment on above: Performed By: #### 7 [id number] #### [facility] [address] [place] [address] Platelets (Bld) [#/Vol] 192.0 E9/L Normal 150.0-500.0 [facility] Comment on above: Performed By: #### 7 [id number] #### [facility] [address] [place] [address] RBC (Bld) [#/Vol] 4.2 E12/L Low 4.3-5.9 [facility] Comment on above: Performed By: #### 7 [id number] #### [facility] [address] [place] [address] WBC corrected for nucl RBC Auto (Bld) [#/Vol] 7.6 E9/L Normal 4.0-11.0 [facility] Comment on above: Performed By: #### 7 [id number] #### [facility] [address] [place] [address] CHEMISTRYOrdered By: SYSTEM SYSTEM on 02-10-2023 25-hydroxyvitamin [...] rate/Area] 39 mL/min/1.73 m2 Low >=59mL/min/1.73 m2 [facility] Chem S Globulin (S) [Mass/Vol] 3.6 g/dL [...] ratio] 16 mg/mg Normal 10 - 20 [facility] Remisol CHEMISTRYOrdered By: Natalio Kraus ertolasimadeleine on 02-10-2023 HbA1c (Bld) [Mass fraction] 10.9 % High <=5.9% [facility] ChemAutoSS CMPon 02-10-2023 Albumin [Mass/Vol] 3.6 g/dL Normal 3.3-5.0 [facility] Comment on above: Performed By: #### 7 [id number] #### [facility] [address] [place] [address] Albumin/Globulin (S) [Mass conc ratio] 1.0 Low 1.1-2.2 [facility] Comment on above: Performed By: #### 7 [id number] #### [facility] [address] [place] [address] ALP [Catalytic activity/Vol] 57 Int._Unit/L Normal [facility] Comment on above: Performed By: #### 7 [id number] #### [facility] [address] [place] [address] ALT No additional P-5'-P [Catalytic activity/Vol] 12 Int._Unit/L Normal - [facility] Comment on above: Performed By: #### 7 [id number] #### [facility] [address] [place] [address] Anion gap [Moles/Vol] 15 mmol/L Normal -16 [facility] Comment on above: Performed By: #### 7 [id number] #### [facility] [address] [place] [address] AST [Catalytic activity/Vol] 18 Int._Unit/L Normal -43 [facility] Comment on above: Performed By: #### 7 [id number] #### [facility] [address] [place] [address] Bilirubin [Mass/Vol] 0.5 mg/dL Normal 0.0-1.1 [facility] Comment on above: Performed By: #### 7 [id number] #### [facility] [address] [place] [address] Calcium [Mass/Vol] 9.8 mg/dL Normal 8.9-11.1 [facility] Comment on above: Performed By: #### 7 [id number] #### [facility] [address] [place] [address] Chloride [Moles/Vol] 98 mmol/L Low 101-111 [facility] Comment on above: Performed By: #### 7 [id number] #### [facility] [address] [place] [address] CO2 [Moles/Vol] 28 mmol/L Normal 21-31 [facility] Comment on above: Performed By: #### 7 [id number] #### [facility] [address] [place] [address] Creatinine [Mass/Vol] 1.4 mg/dL High 0.5-1.3 [facility] Comment on above: Performed By: #### 7 [id number] #### [facility] [address] [place] [address] Globulin (S) [Mass/Vol] 3.6 g/dL Normal 1.4-4.0 [facility] Comment on above: Performed By: #### 7 [id number] #### [facility] [address] [place] [address] Glucose [Mass/Vol] 235 mg/dL High 55-199 [facility] Comment on above: Result Comment: If t his glucose result represents a fasting glucose, interpretation should refer to the following reference range: 55-99 mg/dL Performed By: #### 7 [id number] #### [facility] [address] [place] [address] Potassium [Moles/Vol] 4.0 mmol/L Normal 3.5-5.3 [facility] Comment on above: Performed By: #### 7 [id number] #### [facility] [address] [place] [address] Protein [Mass/Vol] 7.2 g/dL Normal 6.0-7.8 [facility] Comment on above: Performed By: #### 7 [id number] #### [facility] [address] [place] [address] Sodium [Moles/Vol] 137 mmol/L Normal 135-145 [facility] Comment on above: Performed By: #### 7 [id number] #### [facility] [address] [place] [address] Urea nitrogen [Mass/Vol] 23 mg/dL High 5-21 [facility] Comment on above: Performed By: #### 7 [id number] #### [facility] [address] [place] [address] Urea nitrogen/Creatinin e [Mass ratio] 16 No Units Normal 10-20 [facility] Comment on above: Performed By: #### 7 [id number] #### [facility] [address] [place] [address] HEMATOLOGYOrdered By: SYSTEM SYSTEM on 02-10-2023 Basophils/100 [...] Normal 4.0 - 11.0 E9/L [facility] HemeAutoSS [id number] 02-10-2023 HbA1c (Bld) [Mass fraction] 10.9 % High <=5.9 [facility] Comment on above: Performed By: #### 7 [id number] #### [facility] [address] [place] [address] Lipid Panelon 02-10-2023 Cholesterol [Mass/Vol] 196 mg/dL Normal 120-200 [facility] Comment on above: Performed By: #### 7 [id number] #### [facility] [address] [place] [address] Cholesterol in HDL [Mass/Vol] 50 mg/dL Invalid Interpretation Code [facility] Comment on above: Result Comment: HDL > or equal to 60 mg/dL: Low cardiovascular risk HDL < 40 mg/dL : High cardiovascular risk Performed By: #### 7 [id number] #### [facility] [address] [place] [address] Cholesterol in LDL [Mass/Vol] 106 mg/dL Normal <=129 [facility] Comment on above: Performed By: #### 7 [id number] #### [facility] [address] [place] [address] Cholesterol in VLDL [Mass/Vol] 44 mg/dL High 7-40 [facility] Comment on above: Performed By: #### 7 [id number] #### [facility] [address] [place] [address] Triglyceride [Mass/Vol] 218 mg/dL High <=149 [facility] Comment on above: Performed By: #### 7 [id number] #### [facility] [address] [place] [address] TSHon 02-10-2023 TSH Qn 1.79 m[IU]/L Normal 0.34-5.60 [facility] Comment on above: Performed By: #### 7 [id number] #### [facility] [address] [place] [address] Vitamin D 25 Hydroxyon 02-10 25-hydroxyvitamin D3 [Mass/Vol] 52.9 ng/mL Normal 30.0-100.0 [facility] Comment on above: Result Comment: Vit rosario D deficiency has been defined as a level of serum 25-OH vitamin D less than 20 ng/mL (1,2) by the [place] of Medicine and an Endocrine Society practice guideline. The Endocrine Society further defined vitamin D insufficiency as a level between 21 and 29 ng/mL (2). 1. IOM ([place] of Medicine). 2010. Dietary reference intakes for calcium and D. [place]: The National Academies Press. 2. Laney MF, Abhijeet NC, Stacey CHATMAN, et al. Evaluation, treatment, and prevention of vitamin D deficiency: an Endocrine Society clinical practice guideline. JCEM. 2010; 96 (7):1911-30. Performed By: #### 7 [id number] #### [facility] [address] [place] [address] eGFRon 02-10-2023 GFR/1.73 sq M.predicted among non-blacks MDRD (S/P/Bld) [Vol rate/Area] 39 mL/min/1.73 m2 Low >=59 [facility] Comment on above: Order Comment: Order added by Discern Expert. Result Comment: Lead Manufacturing Technician saba kidney disease could be indicated at eGFR's of less than 60 mL/min/1.73m2. Kidney failure is indicated at less than 15 mL/min/1.73m2. Performed By: #### 7 [id number] #### [facility] [address] [place] [address] XR hip LT 1Von 12-04-2022 XR hip LT 1V [facility] [address] [address] XRay Report Signed Patient: Lexi Spence MR#: [id number] : 1945 Acct:[id number] Age/Sex: 77 / F ADM Date: 12/04/22 Loc: [facility] Room: Type: [facility] Attending Dr: Da Lozano II, MD Copies [...] Zayra Juarez M.D.12/04/2022 6:42 PM Dictation Location: [facility]14 Transcribed By: OMAR 12/04/221841 Dictated By: Zayra Juarez MD 12/04/221840 Signed By: 12/04/221841 Normal [facility] Office Visit (Cardiology)on 07-25-2022 Follow-up visit Diagnoses/Problems Assessed S/P CABG x 3 (V45.81) (Z95.1) Ischemic cardiomyopathy (414.8) (I25.5) Hyperlipidemia (272.4) (E78.5) HTN (hypertension) (401.9) (I10) History of angioplasty (V45.89) (Z98.62) History of Dyslipidemia (272.4) (E78.5) CAD, multiple vessel (414.00) (I25.10) History of NM (myocardial infarction) (412) (I25.2) Statin intolerance (995.27) [...] - Retrospective Authorization; Done: 25Jul2022 History of NM (myocardial infarction), HTN (hypertension) Renew: Carvedilol 25 [...] History of angioplasty (V45.89) (Z98.62) History of NM (myocardial infarction) (412) (I25.2) HTN (hypertension) (401.9) [...] breath. Gastrointe (more content not included)... Normal [facility] Tobacco Screening.on 023 Adult depression screening assessment No [facility] DO Work Phone: Fall risk assessment a) No falls within the last year [facility] DO Work Phone: Tobacco use status CPHS b) No [facility] DO Work Phone: CBC AUTO DIFFon 01-30-2022 BASO # 0.0 103/ul Normal 0.0-0.1 [facility] Comment on above: Performed By: #### C BC #### [facility] [address] [place] [address] Dr. Yarely Roe Basophils/100 WBC (Bld) 0.4 % Normal 0.2-2.0 [facility] Comment on above: Performed By: #### C BC #### [facility] [address] [place] [address] Dr. Yarely Roe EO # 0.2 103/ul Normal 0.0-0.7 [facility] Comment on above: Performed By: #### C BC #### [facility] [address] [place] [address] Dr. Yarely Roe Eosinophils/100 WBC (Bld) 2.3 % Normal 0.9-7.0 [facility] Comment on above: Performed By: #### C BC #### [facility] [address] [place] [address] Dr. Yarely Roe Erythrocyte distribution width (RBC) [Ratio] 14.8 % Normal 11.0-15.0 [facility] Comment on above: Performed By: #### C BC #### [facility] [address] [place] [address] Dr. Yarely Roe Hematocrit (Bld) [Volume fraction] 42.0 % Normal 36.0-48.0 [facility] Comment on above: Performed By: #### C BC #### [facility] [address] [place] [address] Dr. Yarely Roe Hemoglobin (Bld) [Mass/Vol] 13.7 g/dL Normal 12.0-16.0 [facility] Comment on above: Performed By: #### C BC #### [facility] [address] [place] [address] Dr. Yarely Roe IG # 0.03 10e3/ul Normal 0.00-0.03 [facility] Comment on above: Performed By: #### C BC #### [facility] [address] [place] [address] Dr. Yarely Roe IG % 0.4 % Normal 0.0-0.5 [facility] Comment on above: Performed By: #### C BC #### [facility] [address] [place] [address] Dr. Yarely Roe LYMPH # 1.7 103/ul Normal 1.2-3.8 [facility] Comment on above: Performed By: #### C BC #### [facility] [address] [place] [address] Dr. Yarely Roe Lymphocytes/100 WBC (Bld) 20.7 % Normal 20.5-60.0 [facility] Comment on above: Performed By: #### C BC #### [facility] [address] [place] [address] Dr. Yarely Roe MANUAL DIFF REQ NO Normal [facility] Comment on above: Performed By: #### C BC #### [facility] [address] [place] [address] Dr. Yarely Roe MCH (RBC) [Entitic mass] 31.9 pg Normal 26.7-34.0 [facility] Comment on above: Performed By: #### C BC #### [facility] [address] [place] [address] Dr. Yarely Roe MCHC (RBC) [Mass/Vol] 32.6 g/dL Normal 29.9-35.2 [facility] Comment on above: Performed By: #### C BC #### [facility] [address] [place] [address] Dr. Yarely Roe MCV (RBC) [Entitic vol] 97.7 fL Normal 81.0-99.0 [facility] Comment on above: Performed By: #### C BC #### [facility] [address] [place] [address] [address] Yarely Roe MONO # 0.5 103/ul Normal 0.3-0.8 [facility] Comment on above: Performed By: #### C BC #### [facility] [address] [place] [address] [address] Yarely Roe Monocytes/100 WBC (Bld) 5.9 % Normal 1.7-12.0 [facility] Comment on above: Performed By: #### C BC #### [facility] [address] [place] [address] [address] Yarely Roe NEUT # 5.7 103/ul Normal 1.4-6.5 [facility] Comment on above: Performed By: #### C BC #### [facility] [address] [place] [address] Dr. Yarely Roe Neutrophils/100 WBC (Bld) 70.3 % Normal 43.0-75.0 [facility] Comment on above: Performed By: #### C BC #### [facility] [address] [place] [address] Dr. Yarely Roe Platelet mean volume (Bld) [Entitic vol] 11.0 fL Normal 9.5-13.5 [facility] Comment on above: Performed By: #### C BC #### [facility] [address] [place] [address] Dr. Yarely Roe PLT 196 103/ul Normal 150-450 [facility] Comment on above: Performed By: #### C BC #### [facility] [address] [place] [address] Dr. Yarely Roe RBC 4.30 106/ul Normal 4.20-5.40 [facility] Comment on above: Performed By: #### C BC #### [facility] [address] [place] [address] Dr. Yarely Roe WBC 8.1 103/ul Normal 4.0-11.0 [facility] Comment on above: Performed By: #### C BC #### [facility] [address] [place] [address] Dr. Yarely Roe GLYCOHEMOGLOBIN A1Con 2021 ADA RECOMMENDATION SEE BELOW Normal [facility] Comment on above: Result Comment: ADA RECOMMENDED LIMIT 4.0 - 6.0 ADA THERAPEUTIC TARGET < 7.0 ACTION SUGGESTED > 7.0 Performed By: #### A 1C #### [facility] [address] [place] [address] Dr. Yarely Roe Glucose [Mass/Vol] 223 mg/dL Normal [facility] Comment on above: Performed By: #### A 1C #### [facility] [address] [place] [address] Dr. Yarely Roe HbA1c (Bld) [Mass fraction] 9.4 % Critically high 4.5-6.2 [facility] Comment on above: Performed By: #### A 1C #### [facility] [address] [place] [address] Dr. Yarely Roe PROF CHEM 8 (BAS METB)on Anion gap [Moles/Vol] 13.4 mmol/L Normal [facility] Comment on above: Performed By: #### B MP #### [facility] [address] [place] [address] Dr. Yarely Roe Calcium [Mass/Vol] 9.5 mg/dL Normal 8.5-10.1 [facility] Comment on above: Performed By: #### B MP #### [facility] [address] [place] [address] Dr. Yarely Roe Chloride [Moles/Vol] 101 mmol/L Normal 98-107 [facility] Comment on above: Performed By: #### B MP #### [facility] [address] [place] [address] Dr. Yarely Roe CO2 [Moles/Vol] 28.6 mmol/L Normal 21.0-32.0 [facility] Comment on above: Performed By: #### B MP #### [facility] [address] [place] [address] Dr. Yarely Roe Creatinine [Mass/Vol] 1.46 mg/dL Critically high 0.55-1.02 [facility] Comment on above: Performed By: #### B MP #### [facility] [address] [address] [address] Yarely Roe EGFR-AF BAHAMIAN 42 mL/min/1.73m2 Critically low >=60 [facility] Comment on above: Performed By: #### B MP #### [facility] [address] [address] [address] Yarely Roe EGFR-NON AF BAHAMIAN 35 mL/min/1.73m2 Critically low >=60 [facility] Comment on above: Performed By: #### B MP #### [facility] [address] [address] [address] Yarely Roe Glucose [Mass/Vol] 288 mg/dL Critically high 74-106 [facility] Comment on above: Performed By: #### B MP #### [facility] [address] [address] [address] Yarely Roe Potassium [Moles/Vol] 4.0 mmol/L Normal 3.5-5.1 [facility] Comment on above: Performed By: #### B MP #### [facility] [address] [address] [address] Yarely Roe Sodium [Moles/Vol] 139 mmol/L Normal 136-145 [facility] Comment on above: Performed By: #### B MP #### [facility] [address] [address] [address] Yarely Roe Urea nitrogen [Mass/Vol] 27.0 mg/dL Critically high 7.0-18.0 [facility] Comment on above: Performed By: #### B MP #### [facility] [address] [address] [address] Yarely Roe Urea nitrogen/Creatinin e [Mass ratio] 18.5 mg/mg Normal [facility] Comment on above: Performed By: #### B MP #### [facility] [address] [address] [address] Yarely Roe PROF CHEM 8 (BAS METB)on Anion gap [Moles/Vol] 11.9 mmol/L Normal [facility] Comment on above: Performed By: #### B MP #### [facility] [address] [address] [address] Yarely Roe Calcium [Mass/Vol] 9.1 mg/dL Normal 8.5-10.1 [facility] Comment on above: Performed By: #### B MP #### [facility] [address] [address] [address] Yarely Roe Chloride [Moles/Vol] 100 mmol/L Normal 98-107 [facility] Comment on above: Performed By: #### B MP #### [facility] [address] [address] [address] Yarely Roe CO2 [Moles/Vol] 30.8 mmol/L Normal 21.0-32.0 [facility] Comment on above: Performed By: #### B MP #### [facility] [address] [address] [address] Yarely Roe Creatinine [Mass/Vol] 1.27 mg/dL Critically high 0.55-1.02 [facility] Comment on above: Performed By: #### B MP #### [facility] [address] [place] [address] Dr. Yarely Roe EGFR-AF BAHAMIAN 50 mL/min/1.73m2 Critically low >=60 [facility] Comment on above: Performed By: #### B MP #### [facility] [address] [address] [address] Yarely Roe EGFR-NON AF BAHAMIAN 41 mL/min/1.73m2 Critically low >=60 [facility] Comment on above: Performed By: #### B MP #### [facility] [address] [address] [address] Yarely Roe Glucose [Mass/Vol] 166 mg/dL Critically high 74-106 [facility] Comment on above: Performed By: #### B MP #### [facility] [address] [address] [address] Yarely Roe Potassium [Moles/Vol] 3.7 mmol/L Normal 3.5-5.1 [facility] Comment on above: Performed By: #### B MP #### [facility] [address] [address] [address] Yarely Roe Sodium [Moles/Vol] 139 mmol/L Normal 136-145 [facility] Comment on above: Performed By: #### B MP #### [facility] [address] [address] [address] Yarely Roe Urea nitrogen [Mass/Vol] 20.0 mg/dL Critically high 7.0-18.0 [facility] Comment on above: Performed By: #### B MP #### [facility] [address] [address] [address] Yarely Roe Urea nitrogen/Creatinin e [Mass ratio] 15.7 mg/mg Normal [facility] Comment on above: Performed By: #### B MP #### [facility] [address] [address] [address] Yarely Roe Office Visit (Cardiology)on 11-02-2021 Follow-up visit Diagnoses/Problems Assessed Hyperlipidemia (272.4) (E78.5) Ischemic cardiomyopathy (414.8) (I25.5) HTN (hypertension) (401.9) (I10) History of NM (myocardial infarction) (412) (I25.2) CAD, multiple vessel [...] Metabolic Panel; Status:Active - Retrospective Authorization; Requested for:[id number]; CAD, multiple vessel, Hyperlipidemia Renew: Rosuvastatin Calcium 5 MG Oral Tablet; TAKE ONE TABLET BY MOUTH AT BEDTIME Class 1 obesity with body mass index (BMI) of 34.0 to 34.9 in adult Healthy Weight Tips; Status:Complete - Retrospective Authorization; Done: [id number] Edema Start: Spironolactone 25 MG Oral Tablet; TAKE 1 TABLET DAILY Unlinked Stop: Potassium Chloride ER 20 MEQ Oral Tablet Extended Release Patient Instructions By signing my name below, I, Pio Jurado LPN, attest that this documentation has been prepared under the direction and in the presence of Dr. Tom Ruano MD. All medical record entries made by the [employer] were at my direction and personally dictated [...] 2:24:53 PM (more content not included)... Normal [facility] Tobacco Screening.on 022 Adult depression screening assessment No [facility] [employer] 250 DO Work Phone: Fall risk assessment a) No falls within the last year [facility] [employer] 250 DO Work Phone: Tobacco use status [facility]PHS b) No [facility] [employer] 250 DO Work Phone: XR LSPINE MIN 4 VIEWSon 040 XR LSPINE MIN 4 VIEWS EXAMINATION: XR [...] Vascular calcifications. Right pelvic vascular stent. IMPRESSION: Meyo-gn-wvnruvey degenerative changes with minimal anterolisthesis of L4 and L5 Electronically authenticated by: ALISSA RAMIREZ Date: 2021-10-16 07:05 Normal [facility] CBC AUTO DIFFon 10-15-2021 BASO # 0.0 103/ul Normal 0.0-0.1 [facility] Comment on above: Performed By: #### C BC #### [facility] [address] [place] [address] Dr. Yarely Roe Basophils/100 WBC (Bld) 0.3 % Normal 0.2-2.0 [facility] Comment on above: Performed By: #### C BC #### [facility] [address] [place] [address] Dr. Yarely Roe EO # 0.3 103/ul Normal 0.0-0.7 [facility] Comment on above: Performed By: #### C BC #### [facility] [address] [place] [address] Dr. Yarely Roe Eosinophils/100 WBC (Bld) 3.4 % Normal 0.9-7.0 [facility] Comment on above: Performed By: #### C BC #### [facility] [address] [place] [address] Dr. Yarely Roe Erythrocyte distribution width (RBC) [Ratio] 15.1 % Critically high 11.0-15.0 [facility] Comment on above: Performed By: #### C BC #### [facility] [address] [place] [address] Dr. Yarely Roe Hematocrit (Bld) [Volume fraction] 42.1 % Normal 36.0-48.0 [facility] Comment on above: Performed By: #### C BC #### [facility] [address] [place] [address] Dr. Yarely Roe Hemoglobin (Bld) [Mass/Vol] 13.5 g/dL Normal 12.0-16.0 [facility] Comment on above: Performed By: #### C BC #### [facility] [address] [place] [address] Dr. Yarely Roe IG # 0.04 10e3/ul Critically high 0.00-0.03 [facility] Comment on above: Performed By: #### C BC #### [facility] [address] [place] [address] Dr. Yarely Roe IG % 0.4 % Normal 0.0-0.5 [facility] Comment on above: Performed By: #### C BC #### [facility] [address] [place] [address] Dr. Yarely Roe LYMPH # 2.1 103/ul Normal 1.2-3.8 [facility] Comment on above: Performed By: #### C BC #### [facility] [address] [place] [address] Dr. Yarely Roe Lymphocytes/100 WBC (Bld) 22.9 % Normal 20.5-60.0 [facility] Comment on above: Performed By: #### C BC #### [facility] [address] [place] [address] Dr. Yarely Roe MANUAL DIFF REQ NO Normal [facility] Comment on above: Performed By: #### C BC #### [facility] [address] [place] [address] Dr. Yarely Roe MCH (RBC) [Entitic mass] 31.5 pg Normal 26.7-34.0 [facility] Comment on above: Performed By: #### C BC #### [facility] [address] [place] [address] Dr. Yarely Roe MCHC (RBC) [Mass/Vol] 32.1 g/dL Normal 29.9-35.2 [facility] Comment on above: Performed By: #### C BC #### [facility] [address] [place] [address] Dr. Yarely Roe MCV (RBC) [Entitic vol] 98.1 fL Normal 81.0-99.0 [facility] Comment on above: Performed By: #### C BC #### [facility] [address] [place] [address] Dr. Yarely Roe MONO # 0.6 103/ul Normal 0.3-0.8 [facility] Comment on above: Performed By: #### C BC #### [facility] [address] [place] [address] Dr. Yarely Roe Monocytes/100 WBC (Bld) 6.1 % Normal 1.7-12.0 [facility] Comment on above: Performed By: #### C BC #### [facility] [address] [place] [address] Dr. Yarely Roe NEUT # 6.2 103/ul Normal 1.4-6.5 [facility] Comment on above: Performed By: #### C BC #### [facility] [address] [place] [address] Dr. Yarely Roe Neutrophils/100 WBC (Bld) 66.9 % Normal 43.0-75.0 [facility] Comment on above: Performed By: #### C BC #### [facility] [address] [place] [address] Dr. Yarely Roe Platelet mean volume (Bld) [Entitic vol] 10.9 fL Normal 9.5-13.5 [facility] Comment on above: Performed By: #### C BC #### [facility] [address] [place] [address] Dr. Yarely Roe PLT 220 103/ul Normal 150-450 [facility] Comment on above: Performed By: #### C BC #### [facility] [address] [place] [address] Dr. Yarely Roe RBC 4.29 106/ul Normal 4.20-5.40 [facility] Comment on above: Performed By: #### C BC #### [facility] [address] [place] [address] Dr. Yarely Roe WBC 9.2 103/ul Normal 4.0-11.0 [facility] Comment on above: Performed By: #### C BC #### [facility] [address] [place] [address] Dr. Yarely Roe GLYCOHEMOGLOBIN A1Con 2021 ADA RECOMMENDATION ADA THERAPEUTIC TARGET 6.0 - 7.0 ACTION SUGGESTED > 7.0 Normal [facility] Comment on above: Performed By: #### A 1C #### [facility] [address] [place] [address] Dr. Yarely Roe Glucose [Mass/Vol] 183 mg/dL Normal [facility] Comment on above: Performed By: #### A 1C #### [facility] [address] [place] [address] Dr. Yarely Roe HbA1c (Bld) [Mass fraction] 8.0 % Critically high <=6.0 [facility] Comment on above: Performed By: #### A 1C #### [facility] [address] [place] [address] Dr. Yarely Roe PROF 14(COMP METB)on 022 Albumin [Mass/Vol] 3.4 g/dL Normal 3.4-5.0 [facility] Comment on above: Performed By: #### C MP #### [facility] [address] [place] [address] Dr. Yarely Roe Albumin/Globulin [Mass ratio] 0.8 {ratio} Normal [facility] Comment on above: Performed By: #### C MP #### [facility] [address] [place] [address] Dr. Yarely Roe ALP [Catalytic activity/Vol] 59 U/L Normal 46-116 [facility] Comment on above: Performed By: #### C MP #### [facility] [address] [place] [address] Dr. Yarely Roe ALT [Catalytic activity/Vol] 9 U/L Critically low 14-59 [facility] Comment on above: Performed By: #### C MP #### [facility] [address] [place] [address] Dr. Yarely Roe Anion gap [Moles/Vol] 11.3 mmol/L Normal [facility] Comment on above: Performed By: #### C MP #### [facility] [address] [address] [address] Yarely Roe AST [Catalytic activity/Vol] 15 U/L Normal 15-37 [facility] Comment on above: Performed By: #### C MP #### [facility] [address] [address] [address] Yarely Roe Bilirubin [Mass/Vol] 0.3 mg/dL Normal 0.2-1.3 [facility] Comment on above: Performed By: #### C MP #### [facility] [address] [address] [address] Yarely Roe Calcium [Mass/Vol] 9.4 mg/dL Normal 8.5-10.1 [facility] Comment on above: Performed By: #### C MP #### [facility] [address] [address] [address] Yarely Roe Chloride [Moles/Vol] 97 mmol/L Critically low 98-107 [facility] Comment on above: Performed By: #### C MP #### [facility] [address] [address] [address] Yarely Roe CO2 [Moles/Vol] 33.0 mmol/L Critically high 22.0-30.0 [facility] Comment on above: Performed By: #### C MP #### [facility] [address] [address] [address] Yarely Roe Creatinine [Mass/Vol] 1.40 mg/dL Critically high 0.52-1.04 [facility] Comment on above: Performed By: #### C MP #### [facility] [address] [address] [address] Yarely Roe EGFR-AF BAHAMIAN 44 mL/min/1.73m2 Critically low >=60 [facility] Comment on above: Performed By: #### C MP #### [facility] [address] [address] [address] Yarely Roe EGFR-NON AF BAHAMIAN 37 mL/min/1.73m2 Critically low >=60 [facility] Comment on above: Performed By: #### C MP #### [facility] [address] [address] [address] Yarely Roe Globulin (S) [Mass/Vol] 4.3 g/dL Normal [facility] Comment on above: Performed By: #### C MP #### [facility] [address] [address] [address] Yarely Roe Glucose [Mass/Vol] 224 mg/dL Critically high 74-106 T [facility] Comment on above: Performed By: #### C MP #### [facility] [address] [address] [address] Yarely Roe Potassium [Moles/Vol] 3.3 mmol/L Critically low 3.4-5.0 [facility] Comment on above: Performed By: #### C MP #### [facility] [address] [place] [address] Dr. Yarely Roe Protein [Mass/Vol] 7.7 g/dL Normal 6.1-8.2 [facility] Comment on above: Performed By: #### C MP #### [facility] [address] [address] [address] Yarely Roe Sodium [Moles/Vol] 138 mmol/L Normal 137-145 [facility] Comment on above: Performed By: #### C MP #### [facility] [address] [place] [address] Dr. Yarely Roe Urea nitrogen [Mass/Vol] 27.0 mg/dL Critically high 7.0-18.0 [facility] Comment on above: Performed By: #### C MP #### [facility] [address] [address] [address] Yarely Roe Urea nitrogen/Creatinin e [Mass ratio] 19.3 mg/mg Normal [facility] Comment on above: Performed By: #### C MP #### [facility] [address] [place] [address] Dr. Yarely Roe [facility] Carotid Artery Dupl ex Ultrasounon 05-08-2020 [facility] Carotid Artery Duplex Ultrasoun [address] Suite [facility], [place] [address] Vascular Lab Report Carotid Artery Duplex Ultrasound Patient Name: LEXI CASTILLO Reading Physician: [id number] Charlotte Cordon MD, [facility] Study Date: 05/08/2020 Referring Physician: [id number] Tom Ruano MD MRN/PID: [id number] PCP: Li Lee Accession/Order#: [id number] CC Report to: Date of : 1945 Technologist: Surekha Hartley RD, T Gender: F Technologist 2: Admission Status: Outpatient Location Performed: [facility] Diagnosis/ICD: R09.89-Other specified symptoms and signs involving the circulatory and respiratory systems Indication: Diabetes, Hyperlipidemia, Former Smoker, Vertigo, CAD, CABG, Ischemic Cardiomyopathy, PTCA, NM, Obesity Procedure/CPT: 12200 Cerebrovascular Carotid Duplex scan complete-[id number] CONCLUSIONS: Right Carotid: Findings are consistent with [...] cm/s Right Left ICA/CCA Ratio 2.2 0.9 [id number] Charlotte Cordon MD, FACC Final Normal [facility] HEMOGLOBIN A1Con 06-17-2019 HbA1c (Bld) [Mass fraction] 7.5 % Normal [facility] Comment on above: Result Comment: Diag nosis of Diabetes-Adults Non-Diabetic: < or = 5.6% Increased risk for developing diabetes: 5.7-6.4% Diagnostic of diabetes: > or = 6.5% . Monitoring of Diabetes Age (y) Therapeutic Goal (%) Adults: >18 <7.0 Pediatrics: 13-18 <7.5 7-12 <8.0 0- 6 7.5-8.5 [employer]. Diabetes Care 33(S1), Jul 2009. Performed By: #### H BA1E #### [facility] [address] [place] [address] HbA1c (Bld) [Mass fraction] 169 MG/DL Normal [facility] Comment on above: Performed By: #### H BA1E #### [facility] [address] [place] [address] Anthony 06-16-2019 AST [Catalytic activity/Vol] 18 U/L Normal 9 - 39 [facility] Comment on above: Order Comment: Desean nt states she had black coffee this a.m. Performed By: #### A ST #### [address] [address] COMPREHENSIVE PANELon 2018 Albumin [Mass/Vol] 4.1 g/dL Normal 3.4 - 5.0 [facility] Comment on above: Performed By: #### C MP #### [address] [address] ALP [Catalytic activity/Vol] 62 U/L Normal 33 - 136 [facility] Comment on above: Performed By: #### C MP #### [address] [address] ALT [Catalytic activity/Vol] 12 U/L Normal 7 - 45 [facility] Comment on above: Result Comment: Yareli ents treated with Sulfasalazine may generate falsely decreased results for ALT. Performed By: #### C MP #### [address] [address] Anion gap [Moles/Vol] 13 mmol/L Normal 10 - 20 [facility] Comment on above: Performed By: #### C MP #### [address] [address] AST [Catalytic activity/Vol] 16 U/L Normal 9 - 39 [facility] Comment on above: Performed By: #### C MP #### [address] [address] Bilirubin [Mass/Vol] 0.5 mg/dL Normal 0.0 - 1.2 [facility] Comment on above: Performed By: #### C MP #### [address] [address] Calcium [Mass/Vol] 9.8 mg/dL Normal 8.6 - 10.3 [facility] Comment on above: Performed By: #### C MP #### [address] [address] Chloride [Moles/Vol] 103 mmol/L Normal 98 - 107 [facility] Comment on above: Performed By: #### C MP #### [address] [address] Creatinine [Mass/Vol] 1.32 mg/dL High 0.50 - 1.05 [facility] Comment on above: Performed By: #### C MP #### [address] [address] GFR- AM. 47 mL/min/1.73m2 Abnormal >60 [facility] Comment on above: Result Comment: CALC ULATIONS OF ESTIMATED GFR ARE PERFORMED USING THE MDRD STUDY EQUATION FOR THE IDMS-TRACEABLE CREATININE METHODS. CLIN CHEM 2007;53:766-72 Performed By: #### C MP #### [address] [address] GFR-NON AM. 39 mL/min/1.73m2 Abnormal >60 [facility] Comment on above: Performed By: #### C MP #### [address] [address] Glucose [Mass/Vol] 115 mg/dL High 74 - 99 [facility] Comment on above: Performed By: #### C MP #### [address] [address] HCO3 (Bld) [Moles/Vol] 25 mmol/L Normal 21 - 32 [facility] Comment on above: Performed By: #### C MP #### [address] [address] Potassium [Moles/Vol] 5.4 mmol/L High 3.5 - 5.3 [facility] Comment on above: Performed By: #### C MP #### [address] [address] Protein [Mass/Vol] 7.5 g/dL Normal 6.4 - 8.2 [facility] Comment on above: Performed By: #### C MP #### [address] [address] Sodium [Moles/Vol] 136 mmol/L Normal 136 - 145 [facility] Comment on above: Performed By: #### C MP #### [address] [address] Urea nitrogen [Mass/Vol] 40 mg/dL High 6 - 23 [facility] Comment on above: Performed By: #### C MP #### [address] [address] LIPID PANEL (CORONARY RISK 2 )on 06-16-2019 Cholesterol [Mass/Vol] 182 mg/dL Normal 0 - 199 [facility] Comment on above: Order Comment: Desean nt [...] dosing. Performed By: #### L IPID #### [address] [address] Cholesterol in HDL [Mass/Vol] 39.0 mg/dL Abnormal [facility] Comment on above: Order Comment: Desean nt states she had black coffee this a.m. Result Comment: . AGE VERY LOW LOW NORMAL HIGH 0-19 Y < 35 < 40 40-45 ---- 20-24 Y ---- < 40 >45 ---- >24 Y ---- < 40 40-60 >60 . Performed By: #### L IPID #### [address] [address] Cholesterol in LDL [Mass/Vol] 92 mg/dL Normal 0 - 99 [facility] Comment on above: Order Comment: Desean nt states she had black coffee this a.m. Result Comment: . NEAR BORD AGE DESIRABLE OPTIMAL HIGH HIGH VERY HIGH 0-19 Y 0 - 109 --- 110-129 >/= 130 ---- 20-24 Y 0 - 119 --- 120-159 >/= 160 ---- >24 Y 0 - 99 100-129 130-159 160-189 >/=190 . Performed By: #### L IPID #### [address] [address] Cholesterol in VLDL [Mass/Vol] 51 mg/dL High 0 - 40 [facility] Comment on above: Order Comment: Desean nt states she had black coffee this a.m. Performed By: #### L IPID #### [address] [address] Cholesterol.total/ Cholesterol in HDL [Mass ratio] 4.7 {ratio} Normal [facility] Comment on above: Order Comment: Desean hernandez states she had black coffee this a.m. Result Comment: REF VALUES DESIRABLE < 3.4 HIGH RISK > 5.0 Performed By: #### L IPID #### [address] [address] NON-HDL CHOLESTEROL 143 mg/dL Normal [facility] Comment on above: Order Comment: Desean hernandez states she had black coffee this a.m. Result Comment: AGE DESIRABLE BORDERLINE HIGH HIGH VERY HIGH 0-19 Y 0 - 119 120 - 144 >/= 145 >/= 160 20-24 Y 0 - 149 150 - 189 >/= 190 ---- >24 Y 30 MG/DL ABOVE LDL CHOLESTEROL GOAL . Performed By: #### L IPID #### [address] [address] Triglyceride [Mass/Vol] 255 mg/dL High 0 - 149 [facility] Comment on above: Order Comment: Desean hernandez [...] dosing. Performed By: #### L IPID #### [address] [address] Vital Signs Date Time Vital Sign Value Performing Clinician Facility 11-27-2023 13:56-0400 Body height 149.86 cm MD Stefan Best Work Phone: [facility] 11-27-2023 13:56-0400 Body mass index (BMI) [Ratio] 33.9 kg/m2 MD Stefan Best Work Phone: [facility] 11-27-2023 13:56-0400 Body weight 76.2 kg MD Stefan Best Work Phone: [facility] 11-27-2023 13:56-0400 Diastolic blood pressure 81 mm[Hg] MD Stefan Best Work Phone: [facility] 11-27-2023 13:56-0400 Heart rate 76 /min MD Stefan Best Work Phone: [facility] 11-27-2023 13:56-0400 Systolic blood pressure 166 mm[Hg] MD Stefan Best Work Phone: [facility] 10-14-2023 13:33-0400 Diastolic blood pressure 68 mm[Hg] [address] 10-14-2023 13:33-0400 Heart rate 78 /min [address] 10-14-2023 13:33-0400 Systolic blood pressure 108 mm[Hg] [address] 09-17-2023 13:07-0500 Body height 149.9 cm Tom Ruano MD Work Phone: [facility] 09-17-2023 13:07-0500 Body mass index (BMI) [Ratio] 33.33 kg/m2 Tom Ruano MD Work Phone: [facility] 09-17-2023 13:07-0500 Body weight 74.84 kg Tom Ruano MD Work Phone: [facility] 09-17-2023 13:07-0500 Diastolic blood pressure 70 mm[Hg] Tom Ruano MD Work Phone: [facility] 09-17-2023 13:07-0500 Heart rate 84 /min Tom Ruano MD Work Phone: [facility] 09-17-2023 13:07-0500 Systolic blood pressure 116 mm[Hg] Tom Ruano MD Work Phone: [facility] 09-09-2023 15:18-0500 Body height 149.86 cm [facility] 09-09-2023 15:18-0500 Body mass index (BMI) [Ratio] 33.3 kg/m2 [facility] 09-09-2023 15:18-0500 Body weight 74.84 kg [facility] 09-09-2023 15:18-0500 Diastolic blood pressure 74 mm[Hg] [facility] 09-09-2023 15:18-0500 Heart rate 86 /min [facility] 09-09-2023 15:18-0500 Systolic blood pressure 117 mm[Hg] [facility] 08-13-2023 13:00-0500 Body height Da Lozano II Other [facility] [employer] Other 08-13-2023 13:00-0500 Body height 149.86 cm [facility] 11-12-2022 15:30-0400 Body height Ross Colmenares Other [facility] Other 11-12-2022 15:30-0400 Body mass index (BMI) [Ratio] 33.32 kg/m2 Ross Colmenares Other [facility] Other 11-12-2022 15:30-0400 Body weight 74.84 kg Ross Colmenares Other [facility] Other 07-25-2022 15:55-0500 Body height 149.86 cm Li Lee Work Phone: NG-Wnzpmnhohk-Bkdgfba y 250 DO Work Phone: 07-25-2022 15:55-0500 Body mass index (BMI) [Ratio] 34.94 kg/m2 Li Lee Work Phone: WJ-Fqachhsmzz-Ccthjvh y 250 DO Work Phone: 07-25-2022 15:55-0500 Body surface area Derived from formula 1.73 m2 Li Lee Work Phone: BM-Tzigeuicrz-Mogqegs y 250 DO Work Phone: 07-25-2022 15:55-0500 Body weight 78.47 kg Li Lee Work Phone: DT-Wtypexinao-Exiwber y 250 DO Work Phone: 07-25-2022 15:55-0500 Diastolic blood pressure 80 mm[Hg] Li Lee Work Phone: TH-Cdavrrgpxs-Zqgrlsz y 250 DO Work Phone: 07-25-2022 15:55-0500 Heart rate 66 /min Li Lee Work Phone: DB-Amwoazggbl-Beehfgo y 250 DO Work Phone: 07-25-2022 15:55-0500 Systolic blood pressure 120 mm[Hg] Li Lee Work Phone: YD-Zrlifpfxcd-Sxzqoql y 250 DO Work Phone: 11-02-2021 13:16-0400 Body height 149.86 cm Li Lee Work Phone: [facility] 250 DO Work Phone: 11-02-2021 13:16-0400 Body mass index (BMI) [Ratio] 34.54 kg/m2 Li Lee Work Phone: [facility] 250 DO Work Phone: 11-02-2021 13:16-0400 Body surface area Derived from formula 1.73 m2 Li Lee Work Phone: [facility] 250 DO Work Phone: 11-02-2021 13:16-0400 Body weight 77.57 kg Li Conley Lee Work Phone: [facility] 250 DO Work Phone: 11-02-2021 13:16-0400 Diastolic blood pressure 80 mm[Hg] Li Ruizight Work Phone: [facility] 250 DO Work Phone: 11-02-2021 13:16-0400 Heart rate 66 /min Li Lee Work Phone: [facility] 250 DO Work Phone: 11-02-2021 13:16-0400 Systolic blood pressure 130 mm[Hg] Li Lee Work Phone: [facility] 250 DO Work Phone: Encounters Encounter Date Encounter Type Care Provider Facility Start: 12-02-2023 End: 12-02-2023 ambulatory Da Lozano II Facility:[facility] Start: 12-02-2023 End: 12-02-2023 ambulatory MD Stefan Best Work Phone: [facility] Work Phone: Start: 12-02-2023 End: 12-02-2023 Patient encounter procedure MD Stefan Best Work Phone: [facility] Start: 11-27-2023 Patient encounter status MD Stefan Best Work Phone: [facility] Start: 11-27-2023 End: 11-27-2023 Patient encounter procedure MD Stefan Best Work Phone: [facility] Work Phone: Start: 11-22-2023 Non-patient / Non-visit MD Sulema Best Work Phone: [facility] Work Phone: Start: 11-19-2023 End: 11-20-2023 ambulatory Maxine Llanes Facility:[facility] Franca martines Start: 10-23-2023 End: 10-23-2023 ambulatory [facility] Work Phone: Start: 10-23-2023 End: 10-23-2023 Patient encounter procedure [facility] Work Phone: Start: 10-14-2023 End: 10-15-2023 ambulatory [facility] Start: 10-14-2023 End: 10-14-2023 Subsequent hospital visit by physician Margie Messina Stress Room 1 [facility] Comment on above: CAD, multiple vessel ; S/P CABG x 3; Ischemic cardiomyopathy; Occlusion and stenosis of right carotid artery; Shortness of breath Start: 09-17-2023 ambulatory Maxine L Shraddha Facility: [facility] Kiera Start: 09-17-2023 End: 09-17-2023 ambulatory [facility]ulatory Start: 09-17-2023 End: 09-17-2023 Patient encounter procedure [facility] Work Phone: Start: 09-17-2023 End: 09-17-2023 Office outpatient visit 25 minutes Tom Ruano MD Work Phone: [facility] Comment on above: CAD, multiple vessel (Primary Dx); S/P CABG x 3; History of angioplasty; Primary hypertension; Ischemic cardiomyopathy; Mixed hyperlipidemia; BMI 32.0-32.9,adult; Former smoker; Occlusion and stenosis of right carotid artery; Shortness of breath Start: 09-09-2023 End: 09-09-2023 Patient encounter procedure [facility] Work Phone: Start: 09-08-2023 End: 09-09-2023 ambulatory Maxine L Shraddha Facility:[facility] Franca martines Start: 08-20-2023 End: 08-21-2023 ambulatory Maxine L Shraddha Facility:[facility] Start: 08-13-2023 End: 08-13-2023 ambulatory Da Lozano II Other [facility] Other Start: 08-13-2023 Office outpatient vi sit 15 minutes Da Lozano II [facility] Start: 08-13-2023 End: 08-13-2023 Patient encounter procedure [facility] Start: 05-21-2023 End: 05-22-2023 ambulatory Maxine L Shraddha Facility:[facility] Start: 04-23-2023 (Procedure) Raine Colmenares [facility] Start: 04-23-2023 End: 04-23-2023 ambulatory Ross Colmenares Other [facility] Other Start: 04-07-2023 End: 04-07-2023 ambulatory Ross Colmenares Other [facility] Other Start: 04-07-2023 Telephone encounter Ross Fadiatyler [facility] Start: 03-27-2023 End: 03-27-2023 ambulatory Da Lozano II Other [facility] Other Start: 03-27-2023 Office outpatient vi sit 15 minutes Da Lozano II [facility] Start: 03-25-2023 ambulatory Maxine L Shraddha Facility: [facility] Kiera Start: 03-05-2023 End: 03-06-2023 ambulatory Maxine L Shraddha Facility:[facility] Dunn[place] bobbi Start: 02-10-2023 End: 02-11-2023 ambulatory Maxine L Shraddha Facility:[facility] Start: 02-10-2023 End: 02-10-2023 Lab Drop off Maxine L Shraddha [facility] Start: 02-05-2023 ambulatory Maxine L Shraddha Facility: [facility] Kiera Start: 12-25-2022 (Procedure) Raine Colmenares [facility] Start: 12-25-2022 End: 12-25-2022 ambulatory Ross Colmenares Other [facility] Other Start: 12-04-2022 End: 12-04-2022 ambulatory Da Harrisle II Facility:[facility] Start: 11-12-2022 End: 11-12-2022 ambulatory Ross Colmenares Other [facility] Other Start: 11-12-2022 Office outpatient ne w 45 minutes Ross HERNANDEZ [facility]oi Start: 11-11-2022 End: 11-11-2022 ambulatory MD Li Lee Work Phone: [facility] Work Phone: Start: 11-11-2022 End: 11-11-2022 Patient encounter procedure MD Li Lee Work Phone: [facility] Start: 10-09-2022 Rx Renewal Li Lee Work Phone: -[facility] 250 DO Work Phone: Start: 07-25-2022 Office outpatient vi sit 25 minutes Li Lee Work Phone: DG-Ookbeynqfu-Oabyjany 250 DO Work Phone: Start: 07-25-2022 ambulatory Tom Ruano II Facility: Start: 07-10-2022 Rx Renewal Li Lee Work Phone: [facility] 250 DO Work Phone: Start: 01-30-2022 End: 01-31-[address] LI LEE Facility:[facility] Start: 12-19-2021 Encounter for genera l adult medical examination without abnormal findings DR TOM RUANO [facility] Start: 12-13-2021 End: 12-14-[address] LI LEE Facility:[facility] Start: 12-13-2021 End: 12-14-2021 Encounter for general adult medical examination without abnormal findings DR LI LEE Facility:[facility] Start: 11-02-2021 Office outpatient vi sit 25 minutes Li Lee Work Phone: [facility] 250 DO Work Phone: Start: 11-02-[address] LI LEE Facilit y:[facility]1 Start: 10-18-2021 End: 01-19-[address] LI LEE Facility:[facility] Start: 10-15-2021 End: 04-05-[address] LI LEE Facility:[facility] Start: 10-11-2021 Rx Renewal Li Lee Work Phone: [facility] 250 DO Work Phone: Start: 09-10-2021 Rx Renewal Li Lee Work Phone: [facility] 250 DO Work Phone: Start: 08-03-2021 AUDIT Li Lee Work Phone: [facility] 250 DO Work Phone: Start: 11-20-2017 Ambulatory BLAKE KUO Facility :[id number] Start: 09-04-2017 Ambulatory BLAKE KUO Facility :[id number] Start: 04-07-2017 End: 04-08-2017 Ambulatory DEFAULT PHYSICIAN Facility:[facility] Patient encounter status Li Lee Work Phone: [facility] 250 DO Work Phone: Procedures Date Procedure [...] procedure 06/09/2024 11:30 AM EST Office Visit [facility] [address] [place] [address] Jeimy Braun, PHOTO MANAGER-DISHROOM ATTENDANT [address] [place] [address] [facility] Start: 03-14-2024 Influenza vaccination Influenz a Vaccine (Season Ended) [facility] Start: 12-02-2023 MRSA Culture MRSA Culture [facility] Start: 09-17-2023 End: 09-16-2025 NM Heart Perfusion W stress and W radionuclide IV Nuclear Stress Test Cardiac Nuclear Medicine Routine CAD, multiple vessel S/P CABG x 3 Ischemic cardiomyopathy Occlusion and stenosis of right carotid artery Shortness of breath Expected: 09/17/2023 (Approximate), Expires: 09/16/2025 [facility] Service Area Work Phone: Comment on above: Expected: 09/17/2023 (Approximate), Expires: 09/16/2025 Start: 07-23-2023 FUV, Provider: Tom Ruano, Status: Pen, Time: 3:40 PM FUV, Provider: Tom Ruano, Status: Pen, Time: 3:40 PM XD-Yixrpvzmxm-Ixrinf ky 250 DO Work Phone: Start: 07-19-2023 Glaucoma screening Diabetes: R etinopathy Screening [facility] Start: 03-14-2023 COVID-19 Vaccine ( season) COVID-19 Vaccine ( season) [facility] Start: 03-14-2023 Influenza vaccination Influenza Vacc ine (#1) [facility] Start: 11-11-2022 X-ray of lumbar spin e, four views XR lumbar spine AP/LAT/FLX/EXT [facility] Start: 11-11-2022 Plain X-ray of left hip XR hip LT min 2V(w/wo pelvis)* [facility] Start: 11-11-2022 XR Hip - left 2 Views [facility] Start: 07-25-2022 FUV, Provider: Tom Ruano, Status: Pen, Time: 3:30 PM FUV, Provider: Tom Ruano, Status: Pen, Time: 3:30 PM [facility] 250 DO Work Phone: Start: 04-19-2022 FUV, Provider: Tom Ruano, Status: Pen, Time: 3:20 PM FUV, Provider: Tom Ruano, Status: Pen, Time: 3:20 PM [facility] 250 DO Work Phone: Start: 11-02-2021 FUV, Provider: Tom Ruano, Status: Pen, Time: 1:15 PM FUV, Provider: Tom Ruano, Status: Pen, Time: 1:15 PM [facility] 250 DO Work Phone: Start: 06-16-2020 Lipid panel Lipid Panel [facility] Start: 09-15-2019 Hemoglobin A1c measurement Diabetes: Hemoglobin A1C [facility] Start: 1995 Zoster Vaccines (1 o f 2) Zoster Vaccines (1 of 2) [facility] Start: 1967 DTaP/Tdap/Td Vaccine s (1 - Tdap) DTaP/Tdap/Td Vaccines (1 - Tdap) [facility] Start: 1964 Urine screening for protein Diabetes: Urine Protein Screening [facility] Start: 1963 Hepatitis C screening Hepatitis C [facility] Start: 1955 Diabetic foot examination Diabetes: Foot Exam [facility] Start: 1945 Medicare Annual Wellness Visit Medicare Annual Wellness Visit (AWV) [facility] Start: 1945 Screening for osteoporosis Bone Density Scan [facility] Bacteria identified in Urine by Culture [facility] Cotinine [Mass/volum e] in Serum or Plasma [facility] Nicotine [Mass/volum e] in Serum or Plasma [facility] Patient Education Low back pain in adults [facility] Work Phone: [facility] Immunizations Immunization Date Immunization Notes Care Provider Fa kasandra 07-03-2022 Fluad Quadrivalent 0 .5 ML Intramuscular Prefilled Syringe Li Lee Work Phone: JE-Kijfqatczz-Bdlgw elias 250 DO Work Phone: 07-03-2022 influenza virus vacc ine, unspecified formulation Maxine Llanes [facility] 07-03-2022 influenza, injectabl e, quadrivalent, contains preservative Tom Ruano MD Work Phone: [facility] Work Phone: 06-17-2022 Pfizer COVID-19 Vac Bivalent 30 MCG/0.3ML Intramuscular Suspension Li Lee Work Phone: [facility] Comment on above: Result Comment: 2022: [id number] 04-13-2021 Pfizer-BioNTech COVI D-19 Vacc 30 MCG/0.3ML Intramuscular Suspension Li Lee Work Phone: [facility] Comment on above: Result Comment: 2022: [id number] 08-30-2020 Pfizer-BioNTech COVI D-19 Vacc 30 MCG/0.3ML Intramuscular Suspension Li Lee Work Phone: [facility] Comment on above: Result Comment: 2022: [id number] 08-09-2020 Pfizer-BioNTech COVI D-19 Vacc 30 MCG/0.3ML Intramuscular Suspension Li Lee Work Phone: [facility] Comment on above: Result Comment: 2022: [id number] 07-01-2019 influenza virus vacc ine, unspecified formulation Maxine Shraddha [facility] 07-01-2019 influenza, injectabl e, quadrivalent, contains preservative Li Conley Lee Work Phone: [place] [address] DO Work Phone: 07-14-2018 influenza virus vacc ine, unspecified formulation Li Conley Lee Work Phone: [facility] 04-16-2018 influenza virus vacc ine, unspecified formulation Maxine Shraddha [facility] 04-16-2018 pneumococcal polysaccharide vaccine, 23 valent Li Conley Lee Work Phone: [facility] 04-13-2018 influenza virus vacc ine, unspecified formulation Li Conley Lee Work Phone: [place] [address] DO Work Phone: 04-13-2018 pneumococcal conjuga te vaccine, 13 valent Li Conley Lee Work Phone: [place] [address] DO Work Phone: 05-16-2017 influenza virus vacc ine, unspecified formulation Maxine Shraddha [facility] 05-12-2017 influenza, high dose seasonal, preservative-free Li Conley Lee Work Phone: [place] [address] DO Work Phone: 10-30-2016 pneumococcal conjuga te vaccine, 13 valent Li Conley Lee Work Phone: [facility] 10-12-2016 pneumococcal polysaccharide vaccine, 23 valent Li Conley Lee Work Phone: [place] [address] DO Work Phone: 07-14-2011 influenza virus vacc ine, unspecified formulation Li Lee Work Phone: [facility] 250 DO Work Phone: Payers Date Payer Category Payer Medicare [id number] 2022 Self-pay [id number] 2022 Unknown 2010 Medicare [id number] 2010 Medicare MEDICARE MEDICAR E PART A AND B [id number] 2010-Present [address] [place] [address] [id number] 1959 Medicare [id number] 1959 Self-pay [id number] 1959 Unknown [id number] 1945 Unknown [id number] 2.16.840.1.987797.3.579.2.593 1945 Unknown [id number] 2.16.840.1.785184.3.579.2.593 1945 Unknown [id number] 2.16.840.1.948111.3.579.2.593 1945 Unknown [id number] 2.16.840.1.147116.3.579.2.593 1945 Unknown [id number] 2.16.840.1.630149.3.579.2.593 1945 Unknown [id number] 2.16.840.1.714445.3.579.2.356 1945 Unknown [id number] 2.16.840.1.526071.3.579.2.356 1945 Unknown [id number] 2.16.840.1.157016.3.579.2.1244 1945 Unknown [id number] 2.16.840.1.890170.3.579.2.1246 1945 Unknown [id number] 2.16.840.1.931960.3.579.2.1246 1945 Unknown [id number] 2.16.840.1.233992.3.579.2.1246 1945 Unknown [id number] 2.16.840.1.302509.3.579.2.1246 1945 Unknown [id number] 2.16.840.1.242303.3.579.2.1246 1945 Unknown [id number] 2.16.840.1.257040.3.579.2.727 1945 Unknown [id number] 2.16.840.1.570216.3.579.2. 1945 Unknown [id number] 2.16.840.1.813334.3.579.2.727 1945 Unknown [id number] 2.16.840.1.969633.3.579.2.727 1945 Unknown [id number] 2.16.840.1.420702.3.579.2.727 1945 Unknown [id number] 2.16.840.1.644152.3.579.2.727 1945 Unknown [id number] 2.16.840.1.730101.3.579.2.727 1945 Unknown [id number] 2.16.840.1.397247.3.579.2.72 1945 Unknown [id number] 2.16.840.1.596508.3.579.2.727 1945 Unknown [id number] 2.16.840.1.447913.3.579.2.72 1945 Unknown [id number] 2.16.840.1.181121.3.579.2.727 1945 Unknown [id number] 2.16.840.1.303741.3.579.2.727 1945 Unknown [id number] 2.16.840.1.608982.3.579.2.727 Medicare [id number] Unknown [id number] 2.16.840.1.374277.3.579.2.531 Unknown [id number] 2.16.840.1.755981.3.579.2.531 Social History Date Type Detail Facility Start: 07-08-2023 End: 09-17-2023 Former smoker Former smoker [facility] 250 DO Work Phone: Comment on above: Quit 17 years ago; Quit 25+ years ago; coffee occasionally soda, tea; Start: 08-06-2018 End: 07-08-2023 Tobacco smoking status [facility] Ex-smoker (finding) [facility] Start: 1945 Sex Assigned At Female [facility] Start: 07-08-2023 End: 09-17-2023 Sex Assigned At [facility] End: 07-14-1996 History of tobacco use Current smoker [facility] Work Phone: End: 07-14-1996 History of tobacco use Cigarette Smoker [facility] Work Phone: Start: 07-08-2023 Tobacco use and exposure Smoke less tobacco non-user [facility] Work Phone: Start: 09-17-2023 Alcohol intake Current drinke r of alcohol (finding) [facility] Work Phone: Start: 07-08-2023 Alcohol Comment occasional [facility] Work Phone: Start: 1945 Sex Assigned At Not on file [facility] Work Phone: Start: 09-07-2023 End: 10-14-2023 Exposure to SARS-CoV-2 (event) Not sure [facility] Start: 08-13-2023 Tobacco smoking stat us NHIS Never smoked tobacco (finding) [facility] Medical Equipment Procedure Code Equipment Code Equipment Origin al Text Equipment Identifier Dates AAA repair with graft GRAFT HEMASHIELD [id number] FDA Start: 07-20-2018 AAA repair with graft IR STENT SMART 9 X 40 120 CM FDA Start: 07-20-2018 AAA repair with graft GRAFT HEMASHIELD [id number] FDA Start: 07-20-2018 AAA repair with graft IR STENT SMART 9 X 40 120 CM FDA Start: 07-20-2018 AAA repair with graft GRAFT HEMASHIELD [id number] FDA Start: 07-20-2018 AAA repair with graft IR STENT SMART 9 X 40 120 CM FDA Start: 07-20-2018 CL STENT XIENCE ALP 2.25 X 15 FDA Start: 06-24-2017 CL STENT XIENCE ALP 2.5 X 38 FDA Start: 06-24-2017 CL STENT XIENCE ALP 3.0 X 18 FDA Start: 06-24-2017 STENT PALMAZ CHLOE E 7 X 24 135CM FDA Start: 09-11-2017 [facility] DME Prescription, See Instructions, [...] 7 X 24 135CM FDA Start: 09-11-2017 CL STENT XIENCE ALP 2.25 X 15 [...] normal. Allergies Williams inhibitors, Atorvastatin, Spironolactone, and Mfmigaa-nwb-isw reductase inhibitors Current Medications Current Outpatient Medications: [...] By signing my name below, I, Lisette MAIER , Scribe attest that this documentation has been prepared [...] discussion and plan. documented in this encounter [facility] Work Phone: 09-17-2023 Instructions Kaleigh Funez LPN [...] of your visit. documented in this encounter [facility] Work Phone: 09-09-2023 Note [id number] [facility] 09-09-2023 Note [id number] [facility] 09-01-2023 Note [id number] 08-13-2023 Evaluation note Encounter Date Diagnosis Assessment Notes Jul, Primary osteoarthritis of left hip (ICD-10 - M16.12) Jul, Other We have provided her a few names of [facility] physicians that are currently taking new patients [...] can see her 3 months after that. [facility] Other 09-14-2023 Evaluation note* Encounter Date Diagnosis [...] is considering changing from her current PCP [facility] Other 05-02-2023 Evaluation note* Encounter Date Diagnosis [...] Above note written by Ramandeep Aggarwal LPN, [employer]. Edited and approved by Dr. Ross Colmenares [...] negative findings were considered in medical decision-making. [facility] Other 05-01-2017 History general Narrative - Reported* Type Description Date Medical History NM Medical History Hyperlipiedmia Medical History PVD Medical History DM Medical History HTN Surgical History Open Heart 11/2016 Surgical History Cardiac Stent 09/2017 Surgical History Cardiac Stent 05/2017 Surgical History C- section 1960 Surgical History Rt iliac angioplasty & stent; Aortobiiliac bifurcation graft 07/20/18 Hospitalization History See above [facility] Other Evaluation + Plan note Future Appointments Appointment Date:03/25/2023 01:00:00 PM Scheduled [facility] assessment information available [facility] Work Phone: Evaluation noteNo InformationNort LocalCustomer Other Evmlnuwuar note* Diagnosis CAD, multiple vessel- Primary S/P CABG x 3 Postsurgical aortocoronary bypass status History of angioplasty Primary hypertension Unspecified essential hypertension Ischemic cardiomyopathy Other specified forms of chronic ischemic heart disease Mixed hyperlipidemia BMI 32.0-32.9,adult Former smoker Personal history of tobacco use, presenting hazards to health Occlusion and stenosis of right carotid artery Shortness of breath documented in this encounter [facility] Work Phone: Evaluation note* Diagnosis CAD, multiple vessel S/P CABG x 3 Postsurgical aortocoronary bypass status Ischemic cardiomyopathy Other specified forms of chronic ischemic heart disease Occlusion and stenosis of right carotid artery Shortness of breath documented in this encounter [facility] Work Phone: Evaluation note* Diagnosis Onset Date Resolution Status Osteoarthritis of left hip a cute Type 2 diabetes mellitus with hyperglycemia acute UTI (urinary tract infection) acute Lumbar pain acute Osteoarthritis of left hip a cute Uncontrolled diabetes mellitus acute [facility] Work Phone: Evaluation note* Diagnosis Onset Date Resolution Status Osteoarthritis of left hip a cute Type 2 diabetes mellitus with hyperglycemia acute UTI (urinary tract infection) acute Lumbar pain acute Osteoarthritis of left hip a cute Uncontrolled diabetes mellitus acute OAB (overactive bladder) acu te Preoperative examination acu te Primary osteoarthritis of left hip acute Type 2 diabetes mellitus with hyperglycemia acute [facility] Work Phone: History of Present illness Narrative* [...] are reviewed and felt to be satisfactory. -[facility] DO Work Phone: History of Present [...] are reviewed and felt to be satisfactory. [facility] [address] [facility] Work Phone: History of Present illness [...] we suggest no change and follow-up as [facility]-Cffghhvo 250 DO Work Phone: Hospital course Narrative No data available for this section [facility] No data available for this section [facility] No data available for this section [facility] (n[facility]ative)* Consultation (Routine) - Authorized Specialty Diagnoses / Procedures Referred By Contac t Referred To Contact Cardiology Diagnoses Occlusion and stenosis of right carotid artery Procedures Follow Up In Cardiology Tom Ruano MD [address] [address] Jeimy Braun APRN-ELLITO [address] [facility] [address], [address] [address] Referral ID Status Reason Start Date Expiration Date V isits Requested Visits Authorized [id number] Authorized 09/17/2023 09/16/2024 1 1 * Cardiac Stress Testing (Routine) - Pending Review Specialty Diagnoses / Procedures Referred By Dimitri t Referred To Contact Radiology Diagnoses CAD, multiple vessel S/P CABG x 3 Ischemic cardiomyopathy Occlusion and stenosis of right carotid artery Shortness of breath Procedures Nuclear Stress Test CHG MYOCARDIAL SPECT MULTIPLE STUDIES Tom Ruano MD [address] [facility] [address], [address] [place] [address] Referral ID Status Reason Start Date Expiration Date V isits Requested Visits Authorized [id number] Pending Review 09/17/2023 09/16/2024 5 5 [facility] Work Phone: Reason for visit NarrativeNEW [facility] [employer] Other Summary Purpose Family History Unknown Family Member Name Dates Details Family [...] Status:Active Heart problem: Father Status:Active Advance Directives Advance Directive Response Recorded Date/ Time Advance [...] of left hip (M16.12) Referral Organization [facility] Referring Provider First Name Ross Referring Provider Last Name Darrian Referring Provider Specialty Pain Medici ne Referred Organization [facility] Referred Provider Da Lozano II Referred Address [address] [place], [place],[address] Referred Provider Specialty Orthopedic S urgery Referral Priority Routine Referral Appointment Date 2022-12-04 General Notes Amanda Camejo 08:40:19 AM >received today, patient is scheduled already with Dr Lozano 12/04/22. Sending the p2p at this time Specialty Diagnoses / Procedures Referred By Dimitri t Referred To Contact Radiology Diagnoses CAD, multiple vessel S/P CABG x 3 Ischemic cardiomyopathy Occlusion and stenosis of right carotid artery Shortness of breath Procedures Nuclear Stress Test CHG MYOCARDIAL SPECT MULTIPLE STUDIES Tom Ruano MD [address] [facility] [address], [address] [place] [address] Referral ID Status Reason Start Date Expiration Date V isits Requested Visits Authorized [id number] Pending Review 09/17/2023 09/16/2024 5 5 Chief Complaint and Reason for Visit Chief Complaint Op Sp Lt Hip Pain, N ext Step establish- see son op sp discuss next step UTI - UA Reason for Visit Osteoarthritis of le ft hip Type 2 diabetes mellitus with hyperglycemia UTI (urinary tract infection) Lumbar pain Osteoarthritis of left hip Uncontrolled diabetes mellitus Chief Complaint establish- see son op sp discuss next step UTI - UA presurgical clearence. lt total hip M16.12 [id number] M81.0 Reason for Visit Osteoarthritis of le ft hip Type 2 diabetes mellitus with hyperglycemia UTI (urinary tract infection) Lumbar pain Osteoarthritis of left hip Uncontrolled diabetes mellitus OAB (overactive bladder) Preoperative examination Primary osteoarthritis of left hip Type 2 diabetes mellitus with hyperglycemia Additional Source Comments INFORMATION SOURCE (unrecogn ized section and content) DATE CREATED AUTHOR 12/31/2017 [facility] DATE CREATED AUTHOR AUTHOR'S ORGANIZ ATION 01/07/2018 [facility] DATE CREATED AUTHOR AUTHOR'S ORGANIZ ATION 05/17/2020 [facility] DATE CREATED AUTHOR AUTHOR'S ORGANIZ ATION 02/14/2022 [facility] DATE CREATED AUTHOR AUTHOR'S ORGANIZ ATION 07/26/2022 [facility] DATE CREATED AUTHOR AUTHOR'S ORGANIZ ATION 07/26/2022 [employer] DATE CREATED AUTHOR AUTHOR'S ORGANIZ ATION 10/16/2023 [facility] DATE CREATED AUTHOR AUTHOR'S ORGANIZ ATION 10/18/2023 [facility] DATE CREATED AUTHOR AUTHOR'S ORGANIZ ATION 11/21/2023 [facility] DATE CREATED AUTHOR AUTHOR'S ORGANIZ ATION 12/04/2023 [facility] Care Teams (unrecognized sec tion and content) Team Status: Active Member Role Status Dates Li Lee MD Primary Care Provider Active Team Status: Inactive Member Role Status Dates Li Lee MD Primary Care Provider Active Ross Colmenares MD Attending Provider Active [employer] 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 Operator Relationship Specialty Start Date End Date Tom Ruano MD [address] [facility] [address], [address] [place] [address] PCP - MSSP ACO Attributed Provider 01/11/23 Stefan Best MD [address] [place] [address] PCP - General Family Medicine 09/17/23 [employer] Machine Operator Relationship Specialty Start Date End Date Tom Ruano MD [address] [facility] 2, [facility] [address] [place] [address] PCP - MSSP ACO Attributed Provider 01/11/23 Stefan Best MD [address] [place] [address] PCP - General Family Medicine 09/17/23 [employer] Machine Operator Relationship Specialty Start Date End Date Tom Ruano MD [address] [facility] [address], [address] [place] [address] PCP - MSSP ACO Attributed Provider 01/11/23 Stefan Best MD [address] [place] [address] PCP - General Family Medicine 09/17/23 [employer] Machine Operator Relationship Specialty Start Date End Date Tom Ruano MD [address] [facility] [address], [address] [place] [address] PCP - MSSP ACO Attributed Provider 01/11/23 Stefan Best MD [address] [place] [address] PCP - General Family Medicine 09/17/23 [employer] Machine Operator Relationship Specialty Start Date End Date Tom Ruano MD [address] [facility] 2, [facility] [address] [place] [address] PCP - MSSP ACO Attributed Provider 01/11/23 Stefan Best MD [address] [place] [address] PCP - General Family Medicine 09/17/23 Team [...] October 23, 2023 End: October 23, 2023 Team Status: Active Member Role Status Dates Stefan Bets MD Primary Care Provide r, Attending Provider Active Start: November 22, 2023 Team Status: Inactive Member Role Status Dates Stefan Best MD Primary Care Provide r, Attending Provider Active Start: November 27, 2023 End: November 27, 2023 Team Status: Inactive Member Role Status Dates Stefan Best MD Primary Care Provider Active Start: December 02, 2023 End: December 02, 2023 Da Lozano II, MD Attending Provider Active Start: December 02, 2023 End: December 02, 2023 Goals (unrecognized section and content) Goals may be documented in a n alternate sectionNo InformationNo Information No data available for this sectionNo InformationNo InformationNo InformationNo InformationGoals may be documented in an alternate sectionGoals may be documented in an alternate section [...] SPECT MULTIPLE STUDIES Tom Ruano MD [address] [place] [address], [address] [address] Referral ID Status Reason Start Date Expiration Date V isits Requested Visits Authorized [id number] Pending Review 09/17/2023 09/16/2024 5 5 FOR [...] BE BASED ON THE PRIMARY CLINICAL RECORDS. [facility] [facility]. provides no warranty or guarantee of the accuracy or completeness of information in this document.
[2023-12-06 12:48] LABS: Basophils Percent Auto 0.3 % (0.2-2.0); Eosinophils Absolute Auto 0.4 10^3/uL (0.0-0.7); Eosinophils Percent Auto 2.9 % (0.9-7.0); Hematocrit 31.8 % (36.0-48.0); Hemoglobin 9.5 g/dL (12.0-16.0); Immature Granulocytes Abs Auto 0.04 10^3/uL (0.00-0.03); Immature Granulocytes Pct Auto 0.3 % (0.0-0.5); Lymphocytes Absolute Auto 1.7 10^3/uL (1.2-3.8); Lymphocytes Percent Auto 13.7 % (20.5-60.0); Mean Corpuscular HGB Conc 29.9 g/dL (29.9-35.2); Mean Corpuscular Volume 103.9 fL (81.0-99.0); Mean Platelet Volume 11.5 fL (9.5-13.5); Monocytes Absolute Auto 0.8 10^3/uL (0.3-0.8); Monocytes Percent Auto 6.2 % (1.7-12.0); Neutrophils Absolute Auto 9.4 10^3/uL (1.4-6.5); Neutrophils Percent Auto 76.6 % (43.0-75.0); Platelet Count 209 10^3/uL (150-450); Red Blood Count 3.06 10^6/uL (4.20-5.40); Red Cell Distribution Width 16.4 % (11.0-15.0); Reticulocyte Pct Auto 2.59 % (0.60-3.10); White Blood Count 12.3 10^3/uL (4.0-11.0)
[2023-12-06 15:11] LABS: Alanine Aminotransferase 11 U/L (14-59); Albumin Globulin Ratio 0.7; Albumin Level 2.8 g/dL (3.4-5.0); Alkaline Phosphatase 55 U/L (46-116); Anion Gap 11.7; Aspartate Amino Transferase 8 U/L (15-37); BUN Creatinine Ratio 19.3; Bilirubin Total 0.4 mg/dL (0.2-1.0); Carbon Dioxide 29.7 mmol/L (21.0-32.0); Chloride 100 mmol/L (98-107); Estimated GFR (African America 24 (>=60); Estimated GFR (Non-African Ame 20 (>=60); Globulin 4.3 g/dL; Glucose 111 mg/dL (74-106); Lactate Dehydrogenase 149 U/L (81-234); Potassium 4.4 mmol/L (3.5-5.1); Sodium 137 mmol/L (136-145); Total Protein 7.1 g/dL (6.4-8.2)
[2023-12-10 06:08] LABS: Vitamin B12 380 pg/mL (232-1245)
== END 2023-12-06 11:54 | disposition home or self-care (01) ==
PROVIDERS: PCP Family Medicine; Visit Provider Family Medicine
DX: D64.9 Anemia, unspecified (principal)
CPT/HCPCS: 36415; 80053; 82607; 82728; 82746; 83615; 85025; 85045

== ENCOUNTER 2024-01-17 10:48 | Outpatient (OUT) | payer MEDICARE, SELFPAY ==
--- NOTE | 2024-01-17 | US_ITS ---
The [address] [address] Patient Name: ESTHER TATUM MRN: [id number] date: 1945 Sex: F Assigned Patient Location: Current Patient Location: Accession/Order Number: [id number] Exam Date: 01/17/2024 10:56 Report Date: 01/19/2024 05:47 At the request of: ABDI SARAH Procedure: US renal BI EXAMINATION: US renal BI HISTORY: Secondary hyperparathyroidism of renal origin N25.81 ; chronic kidney disease stage IV COMPARISON: No relevant comparison available. TECHNIQUE: Ultrasound examination was performed of the kidneys and urinary bladder. FINDINGS: RIGHT KIDNEY: Marked dilation of renal pelvis and calyces which are present pre and post void. No appreciable mass or stones. Moderate cortical thinning, 0.5 cm in thickness. Kidney: 13.5 x 5.6 x 6.7 cm LEFT KIDNEY: Moderately dilated renal pelvis and calyces which are present pre and post void. No appreciable mass or stones. Moderate cortical thinning, 0.6 cm in thickness. Kidney: 10.4 x 6.1 x 6.7 cm BLADDER: No visible wall thickening, mass, or calculi. US/US renal BI IMPRESSION: 1. Marked right, moderate left hydronephrosis of uncertain etiology, but suspected to be chronic/long-standing. No resolution of these findings upon voiding. 2. No visible stones or mass. Electronically authenticated by: KRYSTEN VARGAS Date: 01/19/2024 05:47
--- OUTSIDE RECORDS SUMMARY | 2024-01-17 10:51 | XMS_ITS | CCD ---
Author Organization [facility] Care Team Providers Care Licensed Sales Assistant Name Role Phone BLAKE KUO Unavailable Unavailable ROSA, LI Unavailable Unavailable BLAKE KUO Unavailable Unavailable ROSA, LI Unavailable Unavailable PHYSICIAN, DEFAULT Unavailable Unavailable PHYSICIAN, DEFAULT Unavailable Unavailable Li Lee Unavailable Unavailable Unavailable ROSA, DR LI Conley Primary Care Unavailable LEE, DR LI Conley Admitting Unavailable LEE, DR LI Conley Attending Unavailable LEE, DR LI Conley Consulting Unavailable Clarington, DR Ren Consulting Unavailable LEE, DR LI [...] Attending Unavailable McGuinn IITom Referring Unav ailable LeeLi blandon Primary Care Unavailable McGuinn IITom Attending Unav ailable McGuinn II, Tom Green Referring Unav ailable Lee, Li Miller Primary Care Unavailable McGuinTom foss II Attending Unav ailable MD Li Lee Primary Care Provider MD Ross Colmenares Attending Provider [phone] Ross Colmenares Unavailable Maxine Llanes Primary Care Physician [phone] Da Lozano II Unavailable [phone] Tom Ruano MD Unavailable [phone] Stefan Best MD Primary Care Provider TOM RUANO Referring Unavailable STEFAN BEST Primary [...] Attending Unavailable Shraddha, Maxine L Attending Unavailable MD Stefan Best Primary Care Provider MD Da Lozano II Attending Provider [phone] Da Lozano II Attending UnavailDa Aranda II Admitting UnavailStefan Wiseman Primary Care Unavailable TOM RUANO Attending Unavailable STEFAN BEST Primary Care Unavailable Allergies Allergy Classification Reported Allergen(s) Allergy Type Date of Onset Reaction(s) Facility (15 sources) Angiotensin Converting Enzyme (Williams) Inhibitors; Translations: [WILLIAMS Inhibitors] Allergy to drug (finding) 3 Hyperkalemia, Other Hospit[facility] (20 sources) atorvastatin; Translations: [atorvastatin] Drug Allergy 3 Myalgia [facility] (13 sources) Hmg-Coa Reductase Inhibitors (Statins); Translations: [Statins] Allergy to drug (finding) Myalgia [facility] 250 DO Work Phone: (5 sources) rosuvastatin; Translations: [rosuvastatin] Drug Allergy Myalgia [facility] 250 DO Work Phone: (20 sources) Spironolactone; Translations: [spironolactone] Drug Allergy 3 Other [facility] 250 DO Work Phone: (1 source) Iodine (And Iodine Containting Drugs) Drug allergy (disorder) [facility] (1 source) Pravastatin Drug Allergy [facility] (2 sources) Simvastatin Drug Allergy [facility] (1 source) Sulfonamides (Antibiotic) Drug allergy (disorder) [facility] (6 sources) Adhesive Tape Drug allergy rash [place] Other (2 sources) Pravastatin; Translations: [pravastatin] Drug Allergy Unknown [facility] (11 sources) Angiotensin-conv erting enzyme inhibitor agent Drug Allergy 3 Other [facility] (13 sources) HMG-CoA reductase inhibitor; Translations: [CALOKZM-VJW-JHN REDUCTASE INHIBITORS] Drug Allergy 3 Myalgia [facility] Work Phone: (1 source) Adhesive Tape Drug allergy (disorder) 4 [facility] Repository Medications Current Medications Medication Drug Class(es) Dates Sig (Normalized) Sig (Original) 8 hr acetaminophen 650 mg extended release oral tablet (16 sources) Start: 01-12-2024 take 1300 mg by mouth every twelve hours Acetaminophen Active 1300 MG PO Every 12 hours January 12, 2024 12:00am Start: 07-20-2018 End: 01-12-2024 take 2 tablets by mouth once daily at bedtime Acetaminophen (Tylenol) 325 mg Tablet Discontinued 650 MG PO Daily at bedtime July 20, 2018 1:00am January 12, 2024 4:14pm Start: 07-16-2017 End: 09-11-2017 Acetaminophen (Tylenol Arthr itis Pain) 650 mg Tablet Extended Release Discontinued 1300 MG PO Every evening July 16, 2017 1:00am September 11, 2017 8:44am take 1 tablet by dayo every four to six hours as needed Acetaminophen 500 MG Oral Tablet TAKE 1 TABLET EVERY 4 TO 6 HOURS NEEDED. Quantity: 0 Refills: 0 Ordered: 02-Nov-2021 DO Active allopurinol 300 mg oral tablet (20 sources) Xanthine Oxidase Inhibitor Start: 05-14-2017 take 1 tablet by mouth once daily Allopurinol (Zyloprim) 300 mg Tablet Active 300 MG PO Daily May 14, 2017 12:00am ascorbic acid 500 mg oral tablet (18 sources) Vitamin C Start: 12-05-2023 take 1 tablet by mouth once daily Ascorbic Acid (Vitamin C) (Vitamin C) 500 mg tablet Active 500 MG PO daily December 05, 2023 12:00am Start: 09-11-2017 End: 09-09-2023 take 1 capsule [...] Aggregation Inhibitor, Nonsteroidal Anti-inflammatory Drug Start: 05-14-2017 Aspirin (Beth Lo w Dose Aspirin) 81 mg Tablet,Delayed Release (Dr/Ec) Active 81 MG PO Daily May 14, 2017 12:00am take 1 tablet by dayo every twenty-four [...] 22, 2018 1:13pm cholecalciferol 0.125 mg oral capsule (20 sources) Vitamin D Start: 01-12-2024 take 125 ug by mouth once daily Cholecalciferol (Vitamin D3) Active 125 MCG PO Daily January 12, 2024 12:00am Start: 2023 take 1 tablet by dayo th once daily at mealtime cholecalciferol (Vitamin D-3) 5,000 Units tablet Take 1 tablet (5,000 Units) by mouth once daily. with food 0 2023 Active Start: 09-11-2017 End: 01-12-2024 take 1 capsule by mouth once daily Cholecalciferol (Vitamin D3) (Vitamin D3) 1,000 unit Capsule Discontinued 1000 UNIT PO Daily September 11, 2017 1:00am January 12, 2024 4:16pm Start: 07-16-2017 End: 09-11-2017 Cholecalciferol (Vitamin D3) [...] Active docusate sodium 100 mg oral capsule (20 sources) Start: 01-12-2024 take 1 capsule by mouth once daily Docusate Sodium (Colace) 100 mg capsule Active 100 MG PO Daily January 12, 2024 4:15pm Start: 06-23-2017 End: 01-12-2024 take 1 capsule by mouth twice daily Docusate Sodium (Colace) 100 mg Capsule Discontinued 100 MG PO Twice daily June 23, 2017 1:00am January 12, 2024 4:21pm take 1 capsule by mo [facility] every twenty-four hours Colace 100 MG 1 capsule as needed Orally Once a day Active take 1 tablet by dayo th once daily Docusate Sodium 100 MG Oral Tablet TAKE 1 TABLET DAILY DIRECTED. Quantity: 0 Refills: 0 Ordered: 19-Dec-2016 DO Active ferrous sulfate 325 mg oral tablet (2 sources) Start: 12-05-2023 take 1 tablet by mouth three times daily Ferrous Sulfate (Iron (Ferrous Sulfate)) 325 mg (65 mg iron) tablet Active 325 MG PO tid 90 December 05, 2023 12:00am furosemide 40 mg oral tablet (20 sources) Loop Diuretic Start: 10-11-2021 End: 09-16-2024 take 40 mg by mouth once daily Furosemide Active 40 MG PO Daily January 12, 2024 12:00am Start: 05-14-2017 End: 01-12-2024 take 1 tablet by mouth once daily Furosemide (Lasix) 20 mg Tablet Discontinued 20 MG PO Daily May 14, 2017 12:00am January 12, 2024 4:18pm take 1 tablet by [facility] twice daily Furosemide 40 MG Oral Tablet [...] Ordered Start: 06-15-2021 take 1 capsule by [facility] twice daily Gabapentin 300 MG Oral [...] 25, 2017 11:51am take 1 capsule by [facility] every twenty-four hours Gabapentin 300 MG 1 [...] pen injector (20 sources) Insulin Analog Start: 01-12-2024 Insulin Glargi ne (Basaglar Kwikpen U-100 Insulin) 100 unit/mL (3 mL) insulin pen Active 50 UNIT SUBCUT Every evening January 12, 2024 4:15pm Start: 07-03-2023 Basaglar KwikP en U-100 Insulin 100 unit/mL (3 mL) pen Inject 50 Units under the skin once daily at bedtime. 0 07/03/2023 Active Start: 02-10-2023 Basaglar KwikP en 100 units/mL subcutaneous solution 50 unit(s), SubCutaneous, Daily, # 15 mL, Refills(s) 2, Pharmacy: [facility], 140.6, cm, 02/10/23 11:29:00 EDT, Height/Length Dosing, 79.2, kg, 02/10/23 11:29:00 EDT, Weight Dosing Start Date: 02/10/23 Status: Ordered Start: 02-07-2023 Basaglar KwikP en 100 units/mL subcutaneous solution See Instructions, 50 units daily, # 15 mL, Refills(s) 0, Pharmacy: [facility] Start Date: 02/07/23 Status: Ordered Start: 01-31-2021 Basaglar KwikP en 100 UNIT/ML Subcutaneous Solution Pen-injector INJECT 50 UNITS AT BEDTIME Quantity: 15 Refills: 0 Ordered: 12-Dec-2021 DO Start : 31-Jan-2021 Active Start: 09-11-2017 End: 01-12-2024 Insulin Glargine (Basaglar Kwikpen U-100 Insulin) 100 unit/mL (3 mL) Insulin Pen Discontinued 42 UNIT SUBCUT Every evening September 11, 2017 1:00am January 12, 2024 4:21pm Start: 05-14-2017 End: 09-11-2017 inject 40 [IU] by subcutaneous injection once daily at bedtime Insulin Glargine (Lantus U-100 Insulin) 100 unit/mL solution Discontinued 40 UNIT SUBCUT Daily at bedtime July 16, 2017 9:40am September 11, 2017 9:05am Basaglar KwikPen 100 UNIT/ML Subcutaneous Active 24 hr oxybutynin chloride 15 mg extended release oral tablet (20 sources) Cholinergic Muscarinic Antagonist Start: 01-12-2024 take 15 mg by mouth once daily Oxybutynin Chloride Active 15 MG PO Daily January 12, 2024 4:20pm Start: 01-01-2024 End: 01-12-2024 take 1 tablet by mouth once daily Oxybutynin Chloride Discontinued 0 .ROUTE .COMPLEX January 01, 2024 8:42am January 12, 2024 4:21pm TAKE ONE TABLET BY MOUTH DAILY Start: 12-11-2023 End: 01-01-2024 take 15 mg by mouth once daily Oxybutynin Chloride Dis continued 15 MG PO Daily December 11, 2023 12:00am January 01, 2024 8:43am Start: 11-27-2023 End: 12-11-2023 take 10 mg by mouth once daily Oxybutynin Chloride Dis continued 10 MG PO Daily November 27, 2023 12:00am December 11, 2023 4:20pm Start: 07-03-2023 End: 11-27-2023 take 5 mg [...] DO Active atorvastatin 80 mg oral tablet (10 sources) HMG-CoA Reductase Inhibitor Start: 05-14-2017 End: 06-23-2017 take 80 mg by mouth once daily Atorvastatin Discontinued 80 MG PO Daily May 14, 2017 12:00am June 23, 2017 4:33pm lisinopril 2.5 mg oral tablet (20 sources) Angiotensin Converting Enzyme Inhibitor Start: 05-14-2017 End: 07-20-2018 take 2.5 mg by mouth once daily Lisinopril Discontinued 2.5 MG PO Daily May 14, 2017 12:00am July 20, 2018 7:43am take 1 tablet by dayo th every twenty-four hours Lisinopril 5 MG 1 tablet Orally Once a day Active losartan potassium 25 mg oral tablet (5 sources) Angiotensin 2 Receptor Miquel Start: 07-20-2018 End: 09-09-2023 take 25 mg by mouth once daily at bedtime Losartan Discontinued 25 MG PO Daily at bedtime July 20, 2018 1:00am September 09, 2023 4:26pm metoprolol tartrate 25 mg oral tablet (16 sources) beta-Adrenergic Miquel Start: 05-14-2017 End: 06-23-2017 [...] hours Quantity: 60 Refills: 0 Ordered: 19-Dec-2016 Tomapril GLUE MAKER BONE-CHIEF OF PRODUCTION, Veronica Active Multiple Vitamins/Minerals TABS (10 sources) Multiple Vitamins/Minerals TABS TAKE 1 TABLET DAILY. Quantity: 0 Refills: 0 Ordered: 19-Dec-2016 DO Active nitroglycerin 0.4 mg sublingual tablet (5 sources) Nitrate Vasodilator Start: 2016 End: 2023 Nitroglycerin (Nitrostat) 0.4 mg Tablet, Sublingual Discontinued 0.4 MG SUBLINGUAL Q5M June 23, 2017 1:00am September 09, 2023 4:27pm ondansetron 4 mg oral tablet (2 sources) Serotonin-3 Receptor Antagonist Start: 2023 End: 2023 take 4 mg by mouth every eight hours Ondansetron Hcl Discontinued 4 MG PO Q8H December 05, 2023 12:00am January 12, 2024 4:21pm regadenoson (Lexiscan) injection 0.4 mg (2 sources) Start: 2023 End: 2023 regadenoson (Lexiscan) injection 0.4 mg spironolactone 25 mg oral tablet (16 sources) Aldosterone Antagonist Start: 2016 End: 2023 take 1 tablet by mouth once daily in the morning Spironolactone (Aldactone) 25 mg Tablet Discontinued 25 MG PO Every morning June 23, 2017 1:00am September 09, 2023 4:27pm sulfamethoxazole 800 mg / trimethoprim 160 mg oral tablet (3 sources) Dihydrofolate Reductase Inhibitor Antibacterial, Sulfonamide Antimicrobial Start: [...] millicurie traMADol hydrochloride 50 mg oral tablet (5 sources) Opioid Agonist Start: 2018 End: 2018 take 50 mg by mouth every four to six hours Tramadol Discontinued 50 MG PO EVERY 4-6 HOURS 20 July 24, 2018 1:00am July 31, 2018 1:02am Vitamin B Complex (11 sources) Start: 2016 End: 2018 take 1 [...] parts of aorta] Chronic Chronic kidney disease (7 sources) Chronic kidney disease, unspecified; Translations: [Chronic kidney disease, stage 4 (severe)] Onset: 2 02-05-2023 Chronic Congestive heart failure; nonhypertensive (1 source) Congestive heart failure; nonhypertensive Onset: 8 Coronary atherosclerosis and other heart disease (20 sources) Chronic ischemic heart disease, unspecified; Translations: [Atherosclerotic heart disease of [place] coronary artery without angina pectoris] Onset: 8 09-17-2023 Chronic Deficiency and other anemia (2 sources) Anemia; Translations: [Anemia, unspecified] 12-05-2023 Episodic Deficiency and other anemia (1 source) Anemia, unspecified; Translations: [Anemia, unspecified] 12-11-2023 Episodic Diabetes mellitus with complications (20 sources) Type 1 diabetes mellitus with unspecified [...] [Mitral valve disorders] Onset: 3 07-08-2023 Chronic Hypertension with complications and secondary hypertension (2 sources) Chronic kidney disease due to hypertension; Translations: [Hypertensive chronic kidney disease with stage 1 through stage 4 chronic kidney disease, or unspecified chronic kidney disease] 01-12-2024 Chronic Nutritional deficiencies (1 source) Vitamin D deficiency 02-05-2023 Chronic Occlusion or stenosis of precerebral arteries (20 sources) Right carotid artery occlusion; Translations: [Occlusion and stenosis of carotid artery without mention of cerebral infarction] Onset: 3 09-17-2023 Chronic Osteoarthritis (20 sources) Osteoarthritis of left hip joint; Translations: [Unilateral primary osteoarthritis, left hip] Onset: 4 Chronic Osteoporosis (4 sources) Osteoporosis; Translations: [Age-related osteoporosis without current pathological fracture] Onset: 4 11-24-2023 Chronic Other aftercare (3 sources) Long-term current use of drug therapy; Translations: [Other longterm (current) drug therapy] 11-24-2023 Episodic Other aftercare (1 source) Other extermination supervisor (current) drug therapy; Translations: [Other longterm (current) drug therapy] Onset: 4 Episodic Other diseases of bladder and urethra (3 sources) Overactive bladder; Translations: [Overactive bladder] 11-27-2023 Chronic Other diseases of bladder and urethra (4 sources) Overactive bladder; Translations: [Hypertonicity of bladder] 11-27-2023 Chronic Other diseases of kidney and ureters (1 source) Secondary hyperparathyroidism; Translations: [Secondary hyperparathyroidism of renal origin] 01-12-2024 Chronic Other diseases of kidney and ureters (1 source) Secondary hyperparathyroidism of renal origin; Translations: [Secondary hyperparathyroidism (of renal origin)] 01-12-2024 Chronic Other nervous system disorders (10 sources) Chronic pain; Translations: [Other chronic pain] 09-29-2023 Chronic Other nervous system disorders (1 source) Other chronic pain Chronic Other non-traumatic joint disorders (1 source) Pain in left hip Episodic Other non-traumatic joint disorders (4 sources) Hip pain; Translations: [Pain in left [...] - edema - symptom; Translations: [Edema] Episodic Spondylosis; intervertebral disc disorders; other back problems (11 sources) Spondylosis without myelopathy or radiculopathy, lumbosacral region; Translations: [Other intervertebral disc degeneration, lumbar region] Onset: 2 Chronic Spondylosis; intervertebral disc disorders; other back problems (13 sources) Sciatica, unspecified side; Translations: [Sciatica, left [...] Unclassified (2 sources) Athscl heart disease of [place] coronary artery w/o ang pctrs / I25.10(ICD-9) Onset: 8 Unclassified (1 source) Abnormal electrocardiogram [ECG] [EKG] / R94.31(ICD-9) Onset: 8 Unclassified (1 source) Presence of aortocoronary bypass graft / Z95.1(ICD-9) Onset: 8 Unclassified (1 source) Old myocardial infarction / I25.2(ICD-9) Onset: 8 Unclassified (1 source) Patient encounter status 02-10-2023 Urinary tract infections (6 sources) Urinary tract infectious disease; Translations: [Urinary tract infection, site not specified] 09-10-2023 Episodic Past or Other Problems Problem Classification Problem Date Documented Date Episodic/Chronic Conditions associated with dizziness or vertigo (20 sources) Dizziness; Translations: [Dizziness and giddiness] Onset: 3 07-08-2023 Episodic Coronary atherosclerosis and other heart disease (4 sources) Presence of aortocoronary bypass graft; Translations: [Presence of aortocoronary bypass graft] Onset: 3 Episodic Fluid and electrolyte disorders (20 sources) Hyperkalemia; Translations: [Hyperpotassemia] Onset: 3 07-08-2023 Episodic Other circulatory disease (20 sources) Carotid bruit; Translations: [Other symptoms involving cardiovascular system] Onset: 3 07-08-2023 Episodic Other circulatory disease (20 sources) History of angioplasty; Translations: [Other postprocedural status] Onset: 3 09-17-2023 Episodic Other circulatory disease (2 sources) Peripheral vascular angioplasty status; Translations: [Peripheral vascular angioplasty status] Onset: 3 Episodic Other connective tissue disease (20 sources) Pain in lower limb; Translations: [Pain in limb] Onset: 3 07-08-2023 Episodic Other lower respiratory disease (20 sources) Dyspnea on exertion; Translations: [Shortness of breath] Onset: 3 07-08-2023 Episodic Other lower respiratory disease (5 sources) Dyspnea; Translations: [Shortness of breath] Onset: 4 09-17-2023 Episodic Other lower respiratory disease (2 sources) Shortness of breath; Translations: [Shortness of breath] Onset: 4 Episodic Other screening for suspected conditions (not mental disorders or infectious disease) (20 sources) Electrocardiogram abnormal; Translations: [Nonspecific abnormal electrocardiogram [ECG] [EKG]] Onset: 3 Resolved: 4 09-17-2023 Episodic Residual codes; unclassified (17 sources) Edema; Translations: [Edema] Onset: 3 07-08-2023 Episodic Screening and history of mental health and substance abuse codes (20 sources) Ex-smoker; Translations: [Personal history of tobacco use] Onset: 4 09-17-2023 Episodic Comment on above: Quit 25+ years ago; Unclassified (1 source) Other low back pain M54.59 Unclassified (11 sources) Onset: 4 09-17-2023 Results Test Name Value Interpretation Reference Range Facil ity Basophils Auto (Bld) [#/Vol] on 12-06-2023 Basophils (Bld) [#/Vol] 0.0 10 3/uL 0.0-0.1 [facility] Basophils/100 WBC Auto (Bld) on 12-06-2023 Basophils/100 WBC (Bld) 0.3 % 0.2-2.0 [facility] Eosinophils/100 WBC Auto (Bl d)on 12-06-2023 Eosinophils/100 WBC (Bld) 2.9 % 0.9-7.0 [facility] Erythrocyte distribution wid th Auto (RBC) [Ratio]on 12-06-2023 Erythrocyte distribution width (RBC) [Ratio] 16.4 % High 11.0-15.0 [facility] Estimated glomerular filtrat ion rate (GFR) non- Americanon 12-06-2023 GFR/1.73 sq M.predicted among non-blacks MDRD (S/P/Bld) [Vol rate/Area] 20 mL/min/{1.73_m2} Low >=60 [facility] Globulin Calc (S) [Mass/Vol] on 12-06-2023 Globulin (S) [Mass/Vol] 4.3 g/dL [facility] Hematocrit Auto (Bld) [Volum e fraction]on 12-06-2023 Hematocrit (Bld) [Volume fraction] 31.8 % Low 36.0-48.0 [facility] Hemoglobin [Mass/volume] in Bloodon 12-06-2023 Hemoglobin (Bld) [Mass/Vol] 9.5 g/dL Low 12.0-16.0 [facility] Laboratory - Chemistry and C hemistry - challengeon 12-06-2023 Albumin [Mass/Vol] 2.8 g/dL Low 3.4-5.0 [facility] ALP [Catalytic activity/Vol] 55 U/L 46-116 [facility] ALT [Catalytic activity/Vol] 11 U/L Low 14-59 [facility] AST [Catalytic activity/Vol] 8 U/L Low 15-37 [facility] Bilirubin [Mass/Vol] 0.4 mg/dL 0.2-1.0 [facility] Calcium [Mass/Vol] 9.0 mg/dL 8.5-10.1 [facility] Chloride [Moles/Vol] 100 mmol/L 98-107 [facility] CO2 [Moles/Vol] 29.7 mmol/L 21.0-32.0 [facility] Cobalamin (Vitamin B12) [Mass/Vol] 380 pg/mL 232-1245 [facility] Comment on above: Performed at: [address] [id number] Director: Mohan Talbert PhD, Phone: [phone] Creatinine [Mass/Vol] 2.33 mg/dL High 0.55-1.02 [facility] Ferritin [Mass/Vol] 76.0 ng/mL 8.0-252.0 [facility] GFR/1.73 sq M.predicted MDRD (S/P/Bld) [Vol rate/Area] 24 mL/min/{1.73_m2} Low >=60 [facility] Glucose [Mass/Vol] 111 mg/dL High 74-106 [facility] LDH [Catalytic activity/Vol] 149 U/L 81-234 [facility] Potassium [Moles/Vol] 4.4 mmol/L 3.5-5.1 [facility] Protein [Mass/Vol] 7.1 g/dL 6.4-8.2 [facility] Sodium [Moles/Vol] 137 mmol/L 136-145 [facility] Urea nitrogen [Mass/Vol] 45.0 mg/dL High 7.0-18.0 [facility] Urea nitrogen/Creatinin e [Mass ratio] 19.3 mg/mg [facility] Laboratory - Hematology and Cell countson 12-06-2023 Immature granulocytes/100 WBC (Bld) 0.3 % 0.0-0.5 [facility] Leukocytes [#/volume] correc suzi for nucleated erythrocytes in Blood by Automated counon 12-06-2023 WBC corrected for nucl RBC Auto (Bld) [#/Vol] 12.3 10 3/uL High 4.0-11.0 [facility] Lymphocytes Auto (Bld) [#/Vo l]on 12-06-2023 Lymphocytes (Bld) [#/Vol] 1.7 10 3/uL 1.2-3.8 [facility] Lymphocytes/100 WBC Auto (Bl d)on 05-25-2024 Lymphocytes/100 WBC (Bld) 13.7 % Low 20.5-60.0 [facility] MCH Auto (RBC) [Entitic mass ]on 12-06-2023 MCH (RBC) [Entitic mass] 31.0 pg 26.7-34.0 [facility] MCHC Auto (RBC) [Mass/Vol]on 12-06-2023 MCHC (RBC) [Mass/Vol] 29.9 g/dL 29.9-35.2 [facility] MCV Auto (RBC) [Entitic vol] on 12-06-2023 MCV (RBC) [Entitic vol] 103.9 fL High 81.0-99.0 [facility] Monocytes Auto (Bld) [#/Vol] on 12-06-2023 Monocytes (Bld) [#/Vol] 0.8 10 3/uL 0.3-0.8 [facility] Monocytes/100 WBC Auto (Bld) on 12-06-2023 Monocytes/100 WBC (Bld) 6.2 % 1.7-12.0 [facility] Neutrophils Auto (Bld) [#/Vo l]on 12-06-2023 Neutrophils (Bld) [#/Vol] 9.4 10 3/uL High 1.4-6.5 [facility] Neutrophils/100 WBC Auto (Bl d)on 12-06-2023 Neutrophils/100 WBC (Bld) 76.6 % High 43.0-75.0 [facility] No Panel Informationon 12-05 Eosinophils # (Auto) 0.4 10 3/uL 0.0-0.7 [facility] Folate 8.2 ng/mL >3.0 [facility] Comment on above: A serum folate oniel ntration of less than 3.1 ng/mL isconsidered to represent clinical deficiency.Performed at: [facility] [id number] Director: Mohan Talbert PhD, Phone: [phone] Immature Granulocyte # (Auto) 0.04 10 3/uL High 0.00-0.03 [facility] Platelet mean volume Auto (B ld) [Entitic vol]on 12-06-2023 Platelet mean volume (Bld) [Entitic vol] 11.5 fL 9.5-13.5 [facility] Platelets Auto (Bld) [#/Vol] on 12-06-2023 Platelets (Bld) [#/Vol] 209 10 3/uL 150-450 [facility] RBC Auto (Bld) [#/Vol]on RBC (Bld) [#/Vol] 3.06 10 6/uL Low 4.20-5.40 [facility] Reticulocytes/100 RBC Auto ( Bld)on 12-06-2023 Reticulocytes/100 RBC (Bld) 2.59 % 0.60-3.10 [facility] Serum or plasma albumin/glob ulin mass ratioon 12-06-2023 Albumin/Globulin [Mass ratio] 0.7 {ratio} [facility] Serum or plasma anion gap de terminationon 12-06-2023 Anion gap [Moles/Vol] 11.7 mmol/L [facility] A1C with Estimated Average G luon 12-02-2023 Glucose [Mass/Vol] 166 mg/dL Normal [facility] Comment on above: Result Comment: PERF ORMED BY: [place] [address] PATHOLOGIST MONOTYPE MECHANIC CORAL BECKETT M.D. Performed By: #### N ICOTINE #### [facility] , #### ALB, HGB, [id number], CUMRSA, A1C WT eA #### [facility] [address] HbA1c (Bld) [Mass fraction] 7.4 % High 4.3-5.6 [facility] Comment on above: Result Comment: Incr eased risk for diabetes: 5.7 - 6.4 diabetes: >6.4 glycemic control for adults with diabetes: <7.0 Performed By: #### N ICOTINE #### [facility] , #### ALB, HGB, [id number], CUMRSA, A1C WTH eA #### [facility] [address] Albumin Levelon 12-02-2023 Albumin [Mass/Vol] 3.7 g/dL Normal 3.5-5.7 [facility] Comment on above: Performed By: #### N ICOTINE #### [facility] , #### ALB, HGB, [id number], CUMRSA, A1C WTH eA #### [place] [id number] [facility] Albumin [Mass/volume] in Ser um or Plasma by Bromocresol green (BCG) dye binding methoOrdered By: Da Lozano on 12-02-2023 Albumin BCG dye [Mass/Vol] 3.7 g/dL 3.5-5.7 [facility] Cotinine [Mass/volume] in Se rum or PlasmaOrdered By: Da Lozano on 12-02-2023 Cotinine [Mass/Vol] <1.0 ng/mL . [facility] Comment on above: This test was develo ped and its performance characteristicsdetermined by [employer]. It has not been cleared orapproved by the Food and Drug Administration.Cotinine levels greater than 20.0 are consistent with theuse of tobacco or tobacco cessation products.Performed at: [facility] [employer] [id number] Director: Navneet Carcamo MD, Phone: [phone] Glucose mean value [Mass/vol ume] in Blood Estimated from glycated hemoglobinOrdered By: Da Lozano on 12-02-2023 Average glucose Estimated from glycated hemoglobin (Bld) [Mass/Vol] 166 mg/dL [facility] Hemoglobinon 12-02-2023 Hemoglobin (Bld) [Mass/Vol] 10.3 g/dL Low 11.8-15.4 [facility] Comment on above: Result Comment: PERF ORMED BY: [facility] [address] [place] [address] PATHOLOGIST MONOTYPE MECHANIC CORAL BECKETT M.D. Performed By: #### N ICOTINE #### [facility] , #### ALB, HGB, [id number], CUMRSA, A1C WTH eA #### [address] Hemoglobin A1c percentageOrd ered By: Da Lozano on 12-02-2023 HbA1c (Bld) [Mass fraction] 7.4 % High 4.3-5.6 [facility] Comment on above: Increased risk for d iabetes: 5.7 - 6.4diabetes: >6.4glycemic control for adults with diabetes: <7.0 Hemoglobin [Mass/volume] in BloodOrdered By: Da Lozano on 12-02-2023 Hemoglobin (Bld) [Mass/Vol] 10.3 g/dL Low 11.8-15.4 [facility] MRSA Cultureon 12-02-2023 MRSA Culture No MRSA Isolated 2 Days * This is a corrected result. * A prior result that was reported as final has been changed. Added 2 day read result to report. PERFORMED BY: [place] [address] PATHOLOGIST MONOTYPE MECHANIC CORAL BECKETT M.D. Normal [facility] Comment on above: Performed By: #### N ICOTINE #### [facility] , #### ALB, HGB, [id number], CUMRSA, A1C [facility] eA #### [address] Nicotine [Mass/volume] in Se rum or PlasmaOrdered By: Da Lozano on 12-02-2023 Nicotine [Mass/Vol] <1.0 ng/mL . [facility] Comment on above: This test was devtawnyo ped and its performance characteristicsdetermined by [facility]. It has not been cleared orapproved by the Food and Drug Administration.Nicotine levels greater than 2.0 are consistent with theuse of tobacco or tobacco cessation products. Nicotine/Cotinine Bloodon Cotinine, Blood <1.0 Normal . [facility] Comment on above: Result Comment: This test was developed and its performance characteristics determined by [facility]. It has not been cleared or approved by the Food and Drug Administration. Cotinine levels greater than 20.0 are consistent with the use of tobacco or tobacco cessation products. Performed at: [facility] [employer] [id number] Studio Designer: Navneet Carcamo MD, Phone: [phone] PERFORMED BY: [place] [id number] PATHOLOGIST MONOTYPE MECHANIC CORAL BECKETT M.D. Performed By: #### N ICOTINE #### [facility] , #### ALB, HGB, [id number], CUMRSA, A1C WTH eA #### [address] Nicotine, Blood <1.0 Normal . [facility] Comment on above: Result Comment: This test was developed and its performance characteristics determined by [facility]. It has not been cleared or approved by the Food and Drug Administration. Nicotine levels greater than 2.0 are consistent with the use of tobacco or tobacco cessation products. Performed By: #### N ICOTINE #### [facility] , #### ALB, HGB, [id number], CUMRSA, A1C WTH eA #### [place] [id number] [facility] Vitamin D 25 Hydroxy Totalon 12-02-2023 Vitamin D 25 Hydroxy Total 91.9 ng/mL Normal 30-100 [facility] Comment on above: Result Comment: ROBERTO MIN D STATUS 25(OH)VITAMIN D RANGE (ng/mL) Deficient <20 Insufficient 20 to <30 Sufficient 30 to 100 Reference: Laney MF,Abhijeet NC, Stacey CHATMAN, et al. Evaluation,treatment, and prevention of vitamin D deficiency; an Endocrine Society clinical practice guideline. JCEM. 2010; 96(7):1911-30. PERFORMED BY: [address] [address] PATHOLOGIST MONOTYPE MECHANIC CORAL BECKETT M.D. Performed By: #### N ICOTINE #### [facility] , #### ALB, HGB, [id number], CUMRSA, A1C WTH eA #### [facility] [address] Vitamin D+Metabolites [Mass/ volume] in Serum or PlasmaOrdered By: Da Lozano on 12-02-2023 Vitamin D+Metabolites [Mass/Vol] 91.9 ng/mL 30-100 [facility] Comment on above: VITAMIN D STATUS 25( OH)VITAMIN D RANGE (ng/mL) Deficient <20 Insufficient 20 to <30Sufficient 30 to 100Reference: Laney MF,Abhijeet WOODARD, Stacey CHATMAN, et al. Evaluation,treatment, and prevention of vitamin D deficiency; an Endocrine Society clinical practice guideline. JCEM. 2010; 96(7):1911-30. Wound methicillin resistant Staphylococcus aureus (MRSA) cultureOrdered By: Da Lozano on 12-02-2023 MRSA isol Org specific cx Ql (Unsp spec) No MRSA Isolated 2 Days [facility] Glucose mean value [Mass/vol ume] in Blood Estimated from glycated hemoglobinon 11-22-2023 Average glucose Estimated from glycated hemoglobin (Bld) [Mass/Vol] 160 mg/dL [facility] Laboratory - Hematology and Cell countson 11-22-2023 HbA1c (Bld) [Mass fraction] 7.2 % High 4.5-6.2 [facility] Comment on above: ADA RECOMMENDED LIMI T 4.0 - 6.0ADA THERAPEUTIC TARGET < 7.0ACTION SUGGESTED> 7.0 Laboratory - Chemistry and C hemistry - challengeon 10-23-2023 Bilirubin Ql (U) Negative [facility] Glucose (U) [Mass/Vol] Negative [facility] Ketones Ql (U) Negative [facility] pH (U) 5 [pH] [facility] Specific gravity (U) [Rel density] 1.000 [facility] Urobilinogen (U) [Mass/Vol] 0.2 mg/dL [facility] Laboratory - Specimen inform ationon 10-23-2023 Appearance (U) Cloudy [facility] Color (U) Yellow [facility] Laboratory - Urinalysison Leukocyte esterase Test strip Ql (U) +++ [facility] Nitrite Ql (U) Negative [facility] Protein Ql (U) Negative [facility] No Panel Informationon 10-22 Urine Occult Blood Negative [facility] Home Health Recordson 2023 Home Health Records [id number] #1.00TIFF Normal [facility] NM Heart Perfusion W stress and W radionuclide [place] 10-14-2023 Abnormal Lexiscan Myoview cardiac perfusion stress test. No myocardial ischemia by perfusion imaging. No myocardial infarction by perfusion imaging. Abnormal left ventricular systolic function with mild global hypokinesis. Left ventricular ejection fraction 48 %. No previous studies are available for comparison. Signed by: Charlotte Cordon 10/14/2023 4:27 PM Dictation workstation: [id number] Interpreted By: Charlotte Cordon and Giannuzzi Michael STUDY: MYOCARDIAL PERFUSION STRESS TEST WITH LEXISCAN Performing facility: [facility], [address] [place] [address], [address], [address] Provider: Joey Ruano MD, [facility] PCP: Dr. Marsha Best Supervising provider: Joey Cobb DO, [facility] INDICATION: CAD; CABG ICM SOB; HISTORY: Gender: F; Age: 78 y/o ; Height: HT 149.9 cm cm; Weight: WT 74.844 kg kg. High Cholesterol; CAD; Diabetes; Previous IA; HTN; SOB; Quit smoking 27 years ago. Cardiac catheterization on 2017. PTCA on 2017. CABG on 2017. COMPARISON: No comparison. ACCESSION NUMBER(S): [id number] ORDERING CLINICIAN: TOM RUANO TECHNIQUE: ONE DAY [...] PERFUSION STRESS TEST WITH LEXISCAN Performing facility: [facility], [address] [place] [address], [address] Provider: Joey Ruano MD, FACC PCP: Dr. Marsha Best Supervising provider: Joey Cobb DO, [facility] INDICATION: CAD; CABG ICM SOB; HISTORY: Gender: F; Age: 78 y/o ; Height: HT 149.9 cm cm; Weight: WT 74.844 kg kg. High Cholesterol; CAD; Diabetes; Previous IA; HTN; SOB; Quit smoking 27 years ago. Cardiac catheterization on 2017. PTCA on 2017. CABG on 2017. COMPARISON: No comparison. ACCESSION NUMBER(S): [id number] ORDERING CLINICIAN: TOM RUANO TECHNIQUE: ONE DAY [...] Charlotte Cordon 10/14/2023 4:27 PM Dictation workstation: [id number] [facility] Work Phone: Radiology Study observation (narrative) [facility] Work Phone: NM Heart Perfusion W stress and W radionuclide IVOrdered By: Charlotte Cordon on 10-14-2023 [facility] Work Phone: NUCLEAR STRESS TESTon 2023 NUCLEAR STRESS TEST Interpreted By: Charlotte Cordon, and Omar Hernandez STUDY: MYOCARDIAL PERFUSION STRESS TEST WITH LEXISCAN Performing facility: [facility], [address] [place] [address], [address], [place] [address] [facility] Provider: Joey Ruano MD, FACC PCP: Dr. Marsha Best Supervising provider: Joey Cobb DO, [facility]ACC INDICATION: CAD; CABG ICM SOB; HISTORY: Gender: F; Age: 78 y/o ; Height: HT 149.9 cm cm; Weight: WT 74.844 kg kg. High Cholesterol; CAD; Diabetes; Previous IA; HTN; SOB; Quit smoking 27 years ago. Cardiac catheterization on 2017. PTCA on 2017. CABG on 2017. COMPARISON: No comparison. ACCESSION NUMBER(S): [id number] ORDERING CLINICIAN: TOM RUANO TECHNIQUE: ONE DAY [...] Charlotte Cordon 10/14/2023 4:27 PM Dictation workstation: [id number] [facility] Health Recordson 2023 [facility] Records [id number] #1.00TIFF Normal [facility] Retail - Clinical Noteon Retail - Clinical Note [id number] #1.00TIFF Normal [facility] Home Health Recordson 2023 Home Health Records [id number] #1.00TIFF Normal [facility] Home Health Recordson 2023 Home Health Records [id number] #1.00TIFF Normal [facility] Home Health Records [id number] #1.00TIFF Normal [facility] Home Health Recordson 2023 Home Health Records [id number] #1.00TIFF [facility] Home Health Recordson 2023 Home Health Records [id number] #1.00TIFF [facility] ECG 12-Leadon 09-09-2023 ECG 12-Lead [id number] #1.00TIFF [facility] Home Health Recordson 2023 Home Health Records [id number] #1.00TIFF [facility] ED Note-Physicianon 09-01-19 ED Note-Physician [id number] #1.00TIFF [facility] RAD - MISCon 09-01-2023 RAD - MISC [id number] #1.00TIFF [facility] Ambulatory Visit Summaryon 0 08-21-2023 Ambulatory Visit [...] EDT With: Maxine Sanchez Where: [facility] Family Medicine [facility] Normal [facility] Family Medicine Office/Clini c Noteon 08-21-2023 [...] of clutter to prevent tripping and/or falling. [place] Advance Directives reviewed, patient has on file with size cutter office. Patient denies any problems with ADL?s [...] monitor f (more content not included)... Normal [facility] Comment on above: Result Comment: Elec tronically Signed By: Maxine Sanchez.mane\Date and Time Signed: 08/21/23 09:12 EST\.br\Electronically Co-Signed [...] EST, Weight Dosing HgbA1c Lab Specimen Collect [id number] 3. Long-term insulin use (Z79.4: residential (current) use of insulin) insulins changed to [...] virus vaccine, inactivated 07/03/2022 Recorded SARS-CoV-2 (COVID-19) mRNAMUL.[id number] 06/17/2022 Re (more content not included)... Normal [facility] Comment on above: Result Comment: Elec tronically Signed By: Maxine Sanchez\.br\Date and Time Signed: 08/21/23 08:02 EST Formson 08-21-2023 Forms [id number] #1.00TIFF Normal [facility] [id number] 08-21-2023 HbA1c (Bld) [Mass fraction] 8.2 % High <=5.9 [facility] Comment on above: Performed By: #### 7 [id number] ####[facility] [id number] [place] [address] Patient Educationon 08-21-19 24 Patient Education Caregiving [...] night-lights. ? Place frequently used items in zpmb-yp-ktnga places. Lower the shelves around your home [...] the way. ? Do not use floor urdu or wax that makes floors slippery. If [...] include working with a physical therapist or business trainer to improve your strength, balance, and endurance. Where to find more information ? Centers for Disease Control and Prevention, [place]: www.cdc.gov ? National [place] on Aging: www.jamsina.nih.gov Contact a health care provider if: ? [...] health ca (more content not included)... Normal [facility] Ambulatory Visit Summaryon 0 08-20-2023 Ambulatory [...] EDT With: Maxine Sanchez Where: [facility] Family Medicine [facility] Ambulatory Visit Summary LEXI TATUM :1945 Visit [...] for choosing us for your care. Sangeeta [facility] Pre-Visit Planningon 023 Pre-Visit Planning - From: Bibiana Walter To: Maxine Sanchez; Sent: 05/20/2023 08:13:06 EST Subject: Pre-Visit Planning Due Date/Time: 05/20/2023 08:13:00 EST Caller Name: LEXI TATUM; Caller Number: H , M [facility] Maxine. During a pre-visit planning chart review, I noted the following documentation in the medical record: Current Problem List: CKD (Chronic kidney disease, unspecified). GFR: =39 on 02/10/2023 and =35 on 01/30/2022. 02/11/2023 Office Visit Note: [facility] Staff- Any previous diagnosis: acute systolic heart [...] feel free to contact me at extension [phone]. Thank you! Bibiana Walter LPN - From: Maxine Sanchez To: Bibiana Walter; Sent: 05/28/2023 14:06:51 EST Subject: RE: Pre-Visit Planning Caller Name: LEXI TATUM; Caller Number: H , M chronic kidney disease stage 3, unspecified Normal [address] [facility] Pre-Visit Planning - From: Bibiana Walter [...] Type 1 diabetes and hypercholesterolemia Normal [facility] Ambulatory Visit Summaryon 1 07-21-2022 Ambulatory Visit Summary LEXI TATUM :1945 Visit Date:05/21/2023 Ambulatory Visit Instructions Your Diagnosis Type 1 diabetes mellitus with hypercholesterolemia Long-term insulin use Former smoker BMI 40.0-44.9, adult Your Care Team Attending Physician - Maxine Sancehz Primary Care Physician - Maxine Sanchez This [...] 11:00 AM EST With: Maxine Sanchez Where: [facility] Family Medicine Office/Clini c Noteon 05-21-2023 [...] 3 months. Ordered: HgbA1c Lab Specimen Collect 78879 2. 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 Former smoker (Z87.891: Personal history of [...] virus vaccine, inactivated 07/03/2022 Recorded SARS-CoV-2 (COVID-19) mRNAMUL.ORD![id number] 06/17/2022 Recorded 2023-02-10: TPV75 SARS-CoV-2 (COVID-19) mRNA [...] Recorded pneumococcal 13-valent vaccine 10/30/2016 Recorded Normal [facility] Comment on above: Result Comment: Elec tronically Signed By: Maxine Sanchez\.br\Date and Time Signed: 05/21/23 13:14 EST [id number] 05-21-2023 HbA1c (Bld) [Mass fraction] 8.7 % High <=5.9 [facility] Comment on above: Performed By: #### 7 [id number] #### [facility] Laboratory [address] [place] [address] Ambulatory Visit Summaryon 0 03-05-2023 Ambulatory Visit [...] Friday 1:00 PM EDT With: Where: [facility] Normal [address] [place] [address]- \.br\ Medications\.br\ What How Much When Why [...] incontinence\.br\ Vitamin D deficiency\.br\ Wellness examination\.br\ \.br\ [facility] Medicine Office/Clini c Noteon 03-05-2023 Family Medicine [...] continue BS log. may consider referral to top spotter at that visit. 2. Flank pain (R10.9: [...] virus vaccine, inactivated 07/03/2022 Recorded SARS-CoV-2 (COVID-19) mRNAMUL.ORD![id number] 06/17/2022 Recorded 2023-02-10: TPV75 SARS-CoV-2 (COVID-19) mRNA [...] Recorded pneumococcal 13-valent vaccine 10/30/2016 Recorded Normal [facility] Comment on above: Result Comment: Elec tronically Signed By: Maxine Sanchez\.br\Date and Time Signed: 03/05/23 14:10 EDT Retail - Clinical Noteon Retail - Clinical Note [id number] #1.00CD:127 Normal [facility] Family Medicine Office/Clini c Noteon 02-11-2023 Family Medicine Office/Clinic Note HPI Staff Lexi is a 77 year old female presenting to [facility] Establish Care: History: Any previous diagnosis: acute systolic heart failure, CKD stage 4, Diabetic peripheral neuropathy, Vitamin D deficiency, Type 1 diabetes, gout, osteoarthritis, pure hypercholesterolemia History of seeing any specialist: Dr Echeverria [place] heart, Dr Zhang Marquis specialist, Pain Management Dr Blake Baez hip injections, Dr Rust Scorer Helper When was your last doctors visit: Last provider: Any recent labs: 01/30/22 A1c 9.4 Health Maintenance UTD: Colonoscopy: aged out Mammogram: aged out Pelvic/Pap: aged out Acute: Current issues/complaints: Pt would like to discuss Incontinence currently is taking oxybutynin 5mg daily, pt knows she she has to go and is unable to stop flow. 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 BMI 40.0-44.9, adult (Z68.41: Body mass index [BMI] 40.0-44.9, adult) BMI education complete Ordered: oxybutynin, 10 mg = 1 tab(s), Oral, Daily, # 90 tab(s), Refills(s) 0, Pharmacy: [facility], 140.6, cm, 02/10/23 11:29:00 EDT, Height/Length Dosing, 79.2, kg, 02/10/23 11:29:00 EDT, Weight Dosing Lab Specimen Collect 30917 Vitamin D 25 Hydroxy 3. Former smoker (Z87.891: Personal history of nicotine dependence) continue not smoking Ordered: oxybutynin, 10 mg = 1 tab(s), Oral, Daily, # 90 tab(s), Refills(s) 0, Pharmacy: [facility], 140.6, cm, 02/10/23 11:29:00 EDT, Height/Length Dosing, 79.2, kg, 02/10/23 11:29:00 EDT, Weight Dosing Lab Specimen Collect 86407 Vitamin D 25 Hydroxy 4. Type 1 diabetes (E10.9: Type 1 diabetes mellitus without complications) HGBA1C drawn in office today Ordered: Misc Prescription, Misc DME Prescription, See Instructions, 100 strip(s), 3, True Metrix Test Strips Check AC&HS, [facility], Supply, 140.6, cm, 02/10/23 11:29:00 EDT, Height/Length Dosing, 79.2, kg, 02/10/23 11:29:00 EDT, Weight Dosing oxybutynin, 10 mg = 1 tab(s), Oral, Daily, # 90 tab(s), Refills(s) 0, Pharmacy: [facility], 140.6, cm, 02/10/23 11:29:00 EDT, Height/Length Dosing, 79.2, kg, 02/10/23 11:29:00 EDT, Weight Dosing 5. CKD (chronic kidney disease) (N18.9: Chronic kidney disease, unspecified) labs drawn in office today Ordered: oxybutynin, 10 mg = 1 tab(s), Oral, Daily, # 90 tab(s), Refills(s) 0, Pharmacy: [facility], 140.6, cm, 02/10/23 11:29:00 EDT, Height/Length [...] [facility] (more content not included)... Normal [facility] Comment on above: Result Comment: Elec [...] Follow-Up Appointments Friday 1:00 PM EDT Where: [facility] [place] Normal [facility] Auto Diffon 02-10-2023 Basophils/100 WBC (Bld) 0.4 % Normal 0.0-2.0 [facility] Comment on above: Order Comment: Order Added by Discern Expert. Performed By: #### 7 [id number] #### [facility] Laboratory [address] [place] [address] Basophils/Leukocyt es Auto (Bld) [Pure # fraction] 0.0 E9/L Normal 0.0-0.2 [facility] Comment on above: Order Comment: Order Added by Discern Expert. Performed By: #### 7 [id number] #### [facility] Laboratory [address] [place] [address] Eosinophils/100 WBC (Bld) 2.6 % Normal 0.0-8.0 [facility] Comment on above: Order Comment: Order Added by Discern Expert. Performed By: #### 7 [id number] #### [facility] Laboratory [address] [place] [address] Eosinophils/Leukoc ytes Auto (Bld) [Pure # fraction] 0.2 E9/L Normal 0.0-0.5 [facility] Comment on above: Order Comment: Order Added by Discern Expert. Performed By: #### 7 [id number] #### [facility] Laboratory [address] [place] [address] Lymphocytes/100 WBC (Bld) 23.0 % Normal 14.0-50.0 [facility] Comment on above: Order Comment: Order Added by Discern Expert. Performed By: #### 7 [id number] #### [facility] Laboratory [address] [place] [address] Lymphocytes/Leukoc ytes Auto (Bld) [Pure # fraction] 1.8 E9/L Normal 1.0-4.0 [facility] Comment on above: Order Comment: Order Added by Discern Expert. Performed By: #### 7 [id number] #### [facility] Laboratory [address] [place] [address] Monocytes/100 WBC (Bld) 6.6 % Normal 4.0-14.0 [facility] Comment on above: Order Comment: Order Added by Discern Expert. Performed By: #### 7 [id number] #### [facility] Laboratory [address] [place] [address] Monocytes/Leukocyt es Auto (Bld) [Pure # fraction] 0.5 E9/L Normal 0.2-1.0 [facility] Comment on above: Order Comment: Order Added by Discern Expert. Performed By: #### 7 [id number] #### [facility] Laboratory [address] [place] [address] Neutrophils/100 WBC (Bld) 67.4 % Normal 36.0-75.0 [facility] Comment on above: Order Comment: Order Added by Discern Expert. Performed By: #### 7 [id number] #### [facility] Laboratory [address] [place] [address] Neutrophils/Leukoc ytes Auto (Bld) [Pure # fraction] 5.1 E9/L Normal 2.0-7.5 [facility] Comment on above: Order Comment: Order Added by Discern Expert. Performed By: #### 7 [id number] #### [facility] Laboratory [address] [place] [address] CBC w/ Auto Diffon 3 Erythrocyte distribution width (RBC) [Ratio] 16.0 % High 10.9-14.2 [facility] Comment on above: Performed By: #### 7 [id number] #### [facility] Laboratory [address] [place] [address] Hematocrit (Bld) [Volume fraction] 40.5 % Normal 34.0-46.0 [facility] Comment on above: Performed By: #### 7 [id number] #### [facility] Laboratory [address] [place] [address] Hemoglobin (Bld) [Mass/Vol] 13.5 g/dL Normal 12.0-16.0 [facility] Comment on above: Performed By: #### 7 [id number] #### [facility] Laboratory [address] [place] [address] MCH (RBC) [Entitic mass] 31.7 pg Normal 27.0-34.0 [facility] Comment on above: Performed By: #### 7 [id number] #### [facility] Laboratory [address] [place] [address] MCHC (RBC) [Mass/Vol] 33.3 g/dL Normal 31.4-36.0 [facility] Comment on above: Performed By: #### 7 [id number] #### [facility] [address] [place] [address] MCV (RBC) [Entitic vol] 95.4 fL Normal 80.0-100.0 [facility] Comment on above: Performed By: #### 7 [id number] #### [facility] [address] [place] [address] Platelet mean volume (Bld) [Entitic vol] 10.1 fL Normal 6.4-10.8 [facility] Comment on above: Performed By: #### 7 [id number] #### [facility] [address] [place] [address] Platelets (Bld) [#/Vol] 192.0 E9/L Normal 150.0-500.0 [facility] Comment on above: Performed By: #### 7 [id number] #### [facility] [address] [place] [address] RBC (Bld) [#/Vol] 4.2 E12/L Low 4.3-5.9 [facility] Comment on above: Performed By: #### 7 [id number] #### [facility] [address] [place] [address] WBC corrected for nucl RBC Auto (Bld) [#/Vol] 7.6 E9/L Normal 4.0-11.0 [facility] Comment on above: Performed By: #### 7 [id number] #### [facility] [address] [place] [address] CHEMISTRYOrdered By: SYSTEM SYSTEM on 02-10-2023 25-hydroxyvitamin [...] 1.4 mg/dL High 0.5 - 1.3 mg/dL [facility] Remisol GFR/1.73 sq M.predicted among non-blacks MDRD (S/P/Bld) [Vol rate/Area] 39 mL/min/1.73 m2 Low >=59mL/min/1.73 m2 [facility] Chem S Globulin (S) [Mass/Vol] 3.6 g/dL Normal 1.4 - 4.0 gm/dL [facility] Remisol Glucose [Mass/Vol] 235 mg/dL High 55 - 199 mg/dL [facility] Potassium [Moles/Vol] 4.0 mmol/L Normal 3.5 - 5.3 mmol/L [facility] Protein [Mass/Vol] 7.2 g/dL Normal 6.0 - 7.8 gm/dL [facility] Remisol Sodium [Moles/Vol] 137 mmol/L Normal 135 [...] (Bld) [Mass fraction] 10.9 % High <=5.9% [facility] ChemAutoSS CMPon 02-10-2023 Albumin [Mass/Vol] 3.6 g/dL Normal 3.3-5.0 [facility] Comment on above: Performed By: #### 7 [id number] #### [facility] [address] [place] [address] Albumin/Globulin (S) [Mass conc ratio] 1.0 Low 1.1-2.2 [facility] Comment on above: Performed By: #### 7 [id number] #### [facility] [address] [place] [address] ALP [Catalytic activity/Vol] 57 Int._Unit/L Normal 21-98 [facility] Comment on above: Performed By: #### 7 [id number] #### [facility] [address] [place] [address] ALT No additional P-5'-P [Catalytic activity/Vol] 12 Int._Unit/L Normal 6-46 [facility] Comment on above: Performed By: #### 7 [id number] #### [facility] [address] [place] [address] Anion gap [Moles/Vol] 15 mmol/L Normal 6-16 [facility] Comment on above: Performed By: #### 7 [id number] #### [facility] [address] [place] [address] AST [Catalytic activity/Vol] 18 Int._Unit/L Normal 5-43 [facility] Comment on above: Performed By: #### 7 [id number] #### [facility] [address] [place] [address] Bilirubin [Mass/Vol] 0.5 mg/dL Normal 0.0-1.1 [facility] Comment on above: Performed By: #### 7 [id number] #### [facility] [address] [place] [address] Calcium [Mass/Vol] 9.8 mg/dL Normal 8.9-11.1 [facility] Comment on above: Performed By: #### 7 [id number] #### [facility] [address] [place] [address] Chloride [Moles/Vol] 98 mmol/L Low 101-111 [facility] Comment on above: Performed By: #### 7 [id number] #### [facility] [address] [place] [address] CO2 [Moles/Vol] 28 mmol/L Normal 21-31 [facility] Comment on above: Performed By: #### 7 [id number] #### [facility] [address] [place] [address] Creatinine [Mass/Vol] 1.4 mg/dL High 0.5-1.3 [facility] Comment on above: Performed By: #### 7 [id number] #### [facility] [address] [place] [address] Globulin (S) [Mass/Vol] 3.6 g/dL Normal 1.4-4.0 [facility] Comment on above: Performed By: #### 7 [id number] #### [facility] [address] [place] [address] Glucose [Mass/Vol] 235 mg/dL High 55-199 [facility] Comment on above: Result Comment: If t his glucose result represents a fasting glucose, interpretation should refer to the following reference range: 55-99 mg/dL Performed By: #### 7 [id number] #### [facility] [address] [place] [address] Potassium [Moles/Vol] 4.0 mmol/L Normal 3.5-5.3 [facility] Comment on above: Performed By: #### 7 [id number] #### [facility] [address] [place] [address] Protein [Mass/Vol] 7.2 g/dL Normal 6.0-7.8 [facility] Comment on above: Performed By: #### 7 [id number] #### [facility] [address] [place] [address] Sodium [Moles/Vol] 137 mmol/L Normal 135-145 [facility] Comment on above: Performed By: #### 7 [id number] #### [facility] [address] [place] [address] Urea nitrogen [Mass/Vol] 23 mg/dL High 5-21 [facility] Comment on above: Performed By: #### 7 [id number] #### [facility] [address] [place] [address] Urea nitrogen/Creatinin e [Mass ratio] 16 No Units Normal 10-20 [facility] Comment on above: Performed By: #### 7 [id number] #### [facility] [address] [place] [address] HEMATOLOGYOrdered By: SYSTEM SYSTEM on 02-10-2023 Basophils/100 [...] 95.4 fL Normal 80.0 - 100.0 fL [facility] HemeAutoSS Platelet mean volume (Bld) [Entitic vol] 10.1 fL Normal 6.4 - 10.8 fL [facility] HemeAutoSS Platelets (Bld) [#/Vol] 192.0 E9/L Normal 150.0 - 500.0 E9/L [facility] HemeAutoSS RBC (Bld) [#/Vol] 4.2 E12/L Low 4.3 - 5.9 E12/L [facility] HemeAutoSS WBC corrected for nucl RBC Auto (Bld) [#/Vol] 7.6 E9/L Normal 4.0 - 11.0 E9/L [facility] HemeAutoSS [id number] 02-10-2023 HbA1c (Bld) [Mass fraction] 10.9 % High <=5.9 [facility] Comment on above: Performed By: #### 7 [id number] #### [facility] [address] [place] [address] Lipid Panelon 02-10-2023 Cholesterol [Mass/Vol] 196 mg/dL Normal 120-200 [facility] Comment on above: Performed By: #### 7 [id number] #### [facility] [address] [place] [address] Cholesterol in HDL [Mass/Vol] 50 mg/dL Invalid Interpretation Code [facility] Comment on above: Result Comment: HDL > or equal to 60 mg/dL: Low cardiovascular risk HDL < 40 mg/dL : High cardiovascular risk Performed By: #### 7 [id number] #### [facility] [address] [place] [address] Cholesterol in LDL [Mass/Vol] 106 mg/dL Normal <=129 [facility] Comment on above: Performed By: #### 7 [id number] #### [facility] [address] [place] [address] Cholesterol in VLDL [Mass/Vol] 44 mg/dL High 7-40 [facility] Comment on above: Performed By: #### 7 [id number] #### [facility] [address] [place] [address] Triglyceride [Mass/Vol] 218 mg/dL High <=149 [facility] Comment on above: Performed By: #### 7 [id number] #### [facility] [address] [place] [address] TSHon 02-10-2023 TSH Qn 1.79 m[IU]/L Normal 0.34-5.60 [facility] Comment on above: Performed By: #### 7 [id number] #### [facility] [address] [place] [address] Vitamin D 25 Hydroxyon 02-10 25-hydroxyvitamin D3 [Mass/Vol] 52.9 ng/mL Normal 30.0-100.0 [facility] Comment on above: Result Comment: Vit rosario D deficiency has been defined as a level of serum 25-OH vitamin D less than 20 ng/mL (1,2) by the [place] of [employer] and an Endocrine Society practice guideline. The Endocrine Society further defined vitamin D insufficiency as a level between 21 and 29 ng/mL (2). 1. IOM ([place] of [employer]). 2010. Dietary reference intakes for calcium and D. [place]: The National Academies Press. 2. Laney MF, Abhijeet NC, Stacey CHATMAN, et al. Evaluation, treatment, and prevention of vitamin D deficiency: an Endocrine Society clinical practice guideline. JCEM. 2010; 96 (7):1911-30. Performed By: #### 7 [id number] #### [facility] [address] [place] [address] eGFRon 02-10-2023 GFR/1.73 sq M.predicted among non-blacks MDRD (S/P/Bld) [Vol rate/Area] 39 mL/min/1.73 m2 Low >=59 [facility] Comment on above: Order Comment: Order added by Discern Expert. Result Comment: Sdv Pilot/Navigator/Dds Operator saba kidney disease could be indicated at eGFR's of less than 60 mL/min/1.73m2. Kidney failure is indicated at less than 15 mL/min/1.73m2. Performed By: #### 7 [id number] #### [facility] [address] [place] [address] Office Visit (Cardiology)on 07-25-2022 Follow-up visit Diagnoses/Problems Assessed S/P CABG x 3 (V45.81) (Z95.1) Ischemic cardiomyopathy (414.8) (I25.5) Hyperlipidemia (272.4) (E78.5) HTN (hypertension) (401.9) (I10) History of angioplasty (V45.89) (Z98.62) History of Dyslipidemia (272.4) (E78.5) CAD, multiple vessel (414.00) (I25.10) History of IA (myocardial infarction) (412) (I25.2) Statin intolerance (995.27) [...] - Retrospective Authorization; Done: 25Jul2022 History of IA (myocardial infarction), HTN (hypertension) Renew: Carvedilol 25 [...] History of angioplasty (V45.89) (Z98.62) History of IA (myocardial infarction) (412) (I25.2) HTN (hypertension) (401.9) [...] breath. Gastrointe (more content not included)... Normal [employer] Tobacco Screening.on 023 Adult depression screening assessment No [facility] 250 DO Work Phone: Fall risk assessment a) No falls within the last year [facility] 250 DO Work Phone: Tobacco use status CPHS b) No [facility] 250 DO Work Phone: CBC AUTO DIFFon 01-30-2022 BASO # 0.0 103/ul Normal 0.0-0.1 [facility] Comment on above: Performed By: #### C BC #### [facility] [address] [address] [address] Yarely Roe Basophils/100 WBC (Bld) 0.4 % Normal 0.2-2.0 [facility] Comment on above: Performed By: #### C BC #### [facility] [address] [place] [address] Dr. Yarely Roe EO # 0.2 103/ul Normal 0.0-0.7 [facility] Comment on above: Performed By: #### C BC #### [facility] [address] [place] [address] Dr. Yarely Roe Eosinophils/100 WBC (Bld) 2.3 % Normal 0.9-7.0 [facility] Comment on above: Performed By: #### C BC #### [facility] [address] [place] [address] Dr. Yarely Roe Erythrocyte distribution width (RBC) [Ratio] 14.8 % Normal 11.0-15.0 [facility] Comment on above: Performed By: #### C BC #### [facility] [address] [place] [address] Dr. Yarely Roe Hematocrit (Bld) [Volume fraction] 42.0 % Normal 36.0-48.0 [facility] Comment on above: Performed By: #### C BC #### [facility] [address] [place] [address] Dr. Yaerly Roe Hemoglobin (Bld) [Mass/Vol] 13.7 g/dL Normal 12.0-16.0 [facility] Comment on above: Performed By: #### C BC #### [facility] [address] [place] [address] Dr. Yarely Roe IG # 0.03 10e3/ul Normal 0.00-0.03 [facility] Comment on above: Performed By: #### C BC #### [facility] [address] [place] [address] Dr. Yarely Roe IG % 0.4 % Normal 0.0-0.5 [facility] Comment on above: Performed By: #### C BC #### [facility] [address] [place] [address] Dr. Yarely Roe LYMPH # 1.7 103/ul Normal 1.2-3.8 [facility] Comment on above: Performed By: #### C BC #### [facility] [address] [place] [address] Dr. Yarely Roe Lymphocytes/100 WBC (Bld) 20.7 % Normal 20.5-60.0 [facility] Comment on above: Performed By: #### C BC #### [facility] [address] [place] [address] Dr. Yarely Roe MANUAL DIFF REQ NO Normal [facility] Comment on above: Performed By: #### C BC #### [facility] [address] [place] [address] Dr. Yarely Roe MCH (RBC) [Entitic mass] 31.9 pg Normal 26.7-34.0 [facility] Comment on above: Performed By: #### C BC #### [facility] [address] [place] [address] Dr. Yarely Roe MCHC (RBC) [Mass/Vol] 32.6 g/dL Normal 29.9-35.2 [facility] Comment on above: Performed By: #### C BC #### [facility] [address] [place] [address] Dr. Yarely Roe MCV (RBC) [Entitic vol] 97.7 fL Normal 81.0-99.0 [facility] Comment on above: Performed By: #### C BC #### [facility] [address] [place] [address] Dr. Yarely Roe MONO # 0.5 103/ul Normal 0.3-0.8 [facility] Comment on above: Performed By: #### C BC #### [facility] [address] [place] [address] Dr. Yarely Roe Monocytes/100 WBC (Bld) 5.9 % Normal 1.7-12.0 [facility] Comment on above: Performed By: #### C BC #### [facility] [address] [place] [address] Dr. Yarely Roe NEUT # 5.7 103/ul Normal 1.4-6.5 [facility] Comment on above: Performed By: #### C BC #### [facility] [address] [place] [address] Dr. Yarely Roe Neutrophils/100 WBC (Bld) 70.3 % Normal 43.0-75.0 [facility] Comment on above: Performed By: #### C BC #### [facility] [address] [place] [address] Dr. Yarely Roe Platelet mean volume (Bld) [Entitic vol] 11.0 fL Normal 9.5-13.5 [facility] Comment on above: Performed By: #### C BC #### [facility] [address] [place] [address] Dr. Yarely Roe PLT 196 103/ul Normal 150-450 [facility] Comment on above: Performed By: #### C BC #### [facility] [address] [place] [address] Dr. Yarely Roe RBC 4.30 106/ul Normal 4.20-5.40 [facility] Comment on above: Performed By: #### C BC #### [facility] [address] [place] [address] Dr. Yarely Roe WBC 8.1 103/ul Normal 4.0-11.0 [facility] Comment on above: Performed By: #### C BC #### [facility] [address] [place] [address] Dr. Yarely Roe GLYCOHEMOGLOBIN A1Con 2021 ADA RECOMMENDATION SEE BELOW Normal [facility] Comment on above: Result Comment: ADA RECOMMENDED LIMIT 4.0 - 6.0 ADA THERAPEUTIC TARGET < 7.0 ACTION SUGGESTED > 7.0 Performed By: #### A 1C #### [facility] [address] [place] [address] Dr. Yarely Roe Glucose [Mass/Vol] 223 mg/dL Normal [facility] Comment on above: Performed By: #### A 1C #### [facility] [address] [address] [address] Yarely Roe HbA1c (Bld) [Mass fraction] 9.4 % Critically high 4.5-6.2 [facility] Comment on above: Performed By: #### A 1C #### [facility] [address] [address] [address] Yarely Roe PROF CHEM 8 (BAS METB)on Anion gap [Moles/Vol] 13.4 mmol/L Normal [facility] Comment on above: Performed By: #### B MP #### [facility] [address] [address] [address] Yarely Roe Calcium [Mass/Vol] 9.5 mg/dL Normal 8.5-10.1 [facility] Comment on above: Performed By: #### B MP #### [facility] [address] [address] [address] Yarely Roe Chloride [Moles/Vol] 101 mmol/L Normal 98-107 [facility] Comment on above: Performed By: #### B MP #### [facility] [address] [address] [address] Yarely Roe CO2 [Moles/Vol] 28.6 mmol/L Normal 21.0-32.0 [facility] Comment on above: Performed By: #### B MP #### [facility] [address] [address] [address] Yarely Roe Creatinine [Mass/Vol] 1.46 mg/dL Critically high 0.55-1.02 [facility] Comment on above: Performed By: #### B MP #### [facility] [address] [address] [address] Yarely Roe EGFR-AF DANISH 42 mL/min/1.73m2 Critically low >=60 [facility] Comment on above: Performed By: #### B MP #### [facility] [address] [address] [address] Yarely Roe EGFR-NON AF DANISH 35 mL/min/1.73m2 Critically low >=60 [facility] Comment on above: Performed By: #### B MP #### [facility] [address] [address] [address] Yarely Roe Glucose [Mass/Vol] 288 mg/dL Critically high 74-106 [facility] Comment on above: Performed By: #### B MP #### [facility] [address] [address] [address] Yarely Roe Potassium [Moles/Vol] 4.0 mmol/L Normal 3.5-5.1 [facility] Comment on above: Performed By: #### B MP #### [facility] [address] [address] [address] Yarely Roe Sodium [Moles/Vol] 139 mmol/L Normal 136-145 [facility] Comment on above: Performed By: #### B MP #### [facility] [address] [address] [address] Yarely Roe Urea nitrogen [Mass/Vol] 27.0 mg/dL Critically high 7.0-18.0 [facility] Comment on above: Performed By: #### B MP #### [facility] [address] [address] [address] Yarely Roe Urea nitrogen/Creatinin e [Mass ratio] 18.5 mg/mg Normal [facility] Comment on above: Performed By: #### B MP #### [facility] [address] [address] [address] Yarely Roe PROF CHEM 8 (BAS METB)on Anion gap [Moles/Vol] 11.9 mmol/L Normal [facility] Comment on above: Performed By: #### B MP #### [facility] [address] [address] [address] Yarely Roe Calcium [Mass/Vol] 9.1 mg/dL Normal 8.5-10.1 [facility] Comment on above: Performed By: #### B MP #### [facility] [address] [address] [address] Yarely Roe Chloride [Moles/Vol] 100 mmol/L Normal 98-107 [facility] Comment on above: Performed By: #### B MP #### [facility] [address] [address] [address] Yarely Roe CO2 [Moles/Vol] 30.8 mmol/L Normal 21.0-32.0 [facility] Comment on above: Performed By: #### B MP #### [facility] [address] [address] [address] Yarely Roe Creatinine [Mass/Vol] 1.27 mg/dL Critically high 0.55-1.02 [facility] Comment on above: Performed By: #### B MP #### [facility] [address] [address] [address] Yarely Roe EGFR-AF DANISH 50 mL/min/1.73m2 Critically low >=60 [facility] Comment on above: Performed By: #### B MP #### [facility] [address] [address] [address] Yarely Roe EGFR-NON AF DANISH 41 mL/min/1.73m2 Critically low >=60 [facility] Comment on above: Performed By: #### B MP #### [facility] [address] [address] [address] Yarely Roe Glucose [Mass/Vol] 166 mg/dL Critically high 74-106 [facility] Comment on above: Performed By: #### B MP #### [facility] [address] [address] [address] Yarely Roe Potassium [Moles/Vol] 3.7 mmol/L Normal 3.5-5.1 [facility] Comment on above: Performed By: #### B MP #### [facility] [address] [address] [address] Yarely Roe Sodium [Moles/Vol] 139 mmol/L Normal 136-145 [facility] Comment on above: Performed By: #### B MP #### [facility] [address] [address] [address] Yarely Roe Urea nitrogen [Mass/Vol] 20.0 mg/dL Critically high 7.0-18.0 [facility] Comment on above: Performed By: #### B MP #### [facility] [address] [place], [place] [address] Dr. Yarely Roe Urea nitrogen/Creatinin e [Mass ratio] 15.7 mg/mg Normal [facility] Comment on above: Performed By: #### B MP #### [facility] [address] [place], [place] [address] Dr. Yarely Roe Office Visit (Cardiology)on 11-02-2021 Follow-up visit Diagnoses/Problems Assessed Hyperlipidemia (272.4) (E78.5) Ischemic cardiomyopathy (414.8) (I25.5) HTN (hypertension) (401.9) (I10) History of IA (myocardial infarction) (412) (I25.2) CAD, multiple vessel [...] Metabolic Panel; Status:Active - Retrospective Authorization; Requested for:[id number]; CAD, multiple vessel, Hyperlipidemia Renew: Rosuvastatin Calcium [...] All medical record entries made by the Pio were at my direction and personally dictated [...] 2:24:53 PM (more content not included)... Normal [employer] Tobacco Screening.on Adult depression screening assessment No [facility] [employer] [facility] DO Work Phone: Fall risk assessment a) No falls within the last year [facility] [employer] 250 DO Work Phone: Tobacco use status CPHS b) No [facility] [employer] 250 DO Work Phone: XR LSPINE MIN [...] Vascular calcifications. Right pelvic vascular stent. IMPRESSION: [id number] degenerative changes with minimal anterolisthesis of L4 and L5 Electronically authenticated by: ALISSA RAMIREZ Date: 2021-10-16 07:05 Normal [facility] CBC AUTO DIFFon 10-15-2021 BASO # 0.0 103/ul Normal 0.0-0.1 [facility] Comment on above: Performed By: #### C BC #### [facility] [address] [place] [address] Dr. Yarely Roe Basophils/100 WBC (Bld) 0.3 % Normal 0.2-2.0 [facility] Comment on above: Performed By: #### C BC #### [facility] [address] [place] [address] Dr. Yarely Roe EO # 0.3 103/ul Normal 0.0-0.7 [facility] Comment on above: Performed By: #### C BC #### [facility] [address] [place] [address] Dr. Yarely Roe Eosinophils/100 WBC (Bld) 3.4 % Normal 0.9-7.0 [facility] Comment on above: Performed By: #### C BC #### [facility] [address] [place] [address] Dr. Yarely Roe Erythrocyte distribution width (RBC) [Ratio] 15.1 % Critically high 11.0-15.0 [facility] Comment on above: Performed By: #### C BC #### [facility] [address] [place] [address] Dr. Yarely Roe Hematocrit (Bld) [Volume fraction] 42.1 % Normal 36.0-48.0 [facility] Comment on above: Performed By: #### C BC #### [facility] [address] [place] [address] Dr. Yarely Roe Hemoglobin (Bld) [Mass/Vol] 13.5 g/dL Normal 12.0-16.0 [facility] Comment on above: Performed By: #### C BC #### [facility] [address] [place] [address] Dr. Yarely Roe IG # 0.04 10e3/ul Critically high 0.00-0.03 [facility] Comment on above: Performed By: #### C BC #### [facility] [address] [place] [address] Dr. Yarely Roe IG % 0.4 % Normal 0.0-0.5 [facility] Comment on above: Performed By: #### C BC #### [facility] [address] [place] [address] Dr. Yarely Roe LYMPH # 2.1 103/ul Normal 1.2-3.8 [facility] Comment on above: Performed By: #### C BC #### [facility] [address] [place] [address] Dr. Yarely Roe Lymphocytes/100 WBC (Bld) 22.9 % Normal 20.5-60.0 [facility] Comment on above: Performed By: #### C BC #### [facility] [address] [place] [address] Dr. Yarely Roe MANUAL DIFF REQ NO Normal [facility] Comment on above: Performed By: #### C BC #### [facility] [address] [place] [address] Dr. Yarely Roe MCH (RBC) [Entitic mass] 31.5 pg Normal 26.7-34.0 [facility] Comment on above: Performed By: #### C BC #### [facility] [address] [place] [address] Dr. Yarely Roe MCHC (RBC) [Mass/Vol] 32.1 g/dL Normal 29.9-35.2 [facility] Comment on above: Performed By: #### C BC #### [facility] [address] [place] [address] Dr. Yarely Roe MCV (RBC) [Entitic vol] 98.1 fL Normal 81.0-99.0 [facility] Comment on above: Performed By: #### C BC #### [facility] [address] [place] [address] Dr. Yarely Roe MONO # 0.6 103/ul Normal 0.3-0.8 [facility] Comment on above: Performed By: #### C BC #### [facility] [address] [place] [address] Dr. Yarely Roe Monocytes/100 WBC (Bld) 6.1 % Normal 1.7-12.0 [facility] Comment on above: Performed By: #### C BC #### [facility] [address] [address] [address] Yarely Roe NEUT # 6.2 103/ul Normal 1.4-6.5 [facility] Comment on above: Performed By: #### C BC #### [facility] [address] [place] [address] Dr. Yarely Roe Neutrophils/100 WBC (Bld) 66.9 % Normal 43.0-75.0 [facility] Comment on above: Performed By: #### C BC #### [facility] [address] [place] [address] Dr. Yarely Roe Platelet mean volume (Bld) [Entitic vol] 10.9 fL Normal 9.5-13.5 [facility] Comment on above: Performed By: #### C BC #### [facility] [address] [place] [address] Dr. Yarely Roe PLT 220 103/ul Normal 150-450 [facility] Comment on above: Performed By: #### C BC #### [facility] [address] [place] [address] Dr. Yarely Roe RBC 4.29 106/ul Normal 4.20-5.40 [facility] Comment on above: Performed By: #### C BC #### [facility] [address] [place] [address] Dr. Yarely Roe WBC 9.2 103/ul Normal 4.0-11.0 [facility] Comment on above: Performed By: #### C BC #### [facility] [address] [place] [address] Dr. Yarely Roe GLYCOHEMOGLOBIN A1Con 2021 ADA RECOMMENDATION ADA THERAPEUTIC TARGET 6.0 - 7.0 ACTION SUGGESTED > 7.0 Normal [facility] Comment on above: Performed By: #### A 1C #### [facility] [address] [place] [address] Dr. Yarely Roe Glucose [Mass/Vol] 183 mg/dL Normal [facility] Comment on above: Performed By: #### A 1C #### [facility] [address] [place] [address] Dr. Yarely Roe HbA1c (Bld) [Mass fraction] 8.0 % Critically high <=6.0 [facility] Comment on above: Performed By: #### A 1C #### [facility] [address] [place] [address] Dr. Yarely Roe PROF 14(COMP METB)on 022 Albumin [Mass/Vol] 3.4 g/dL Normal 3.4-5.0 [facility] Comment on above: Performed By: #### C MP #### [facility] [address] [place] [address] Dr. Yarely Roe Albumin/Globulin [Mass ratio] 0.8 {ratio} Normal [facility] Comment on above: Performed By: #### C MP #### [facility] [address] [place] [address] Dr. Yarely Roe ALP [Catalytic activity/Vol] 59 U/L Normal 46-116 [facility] Comment on above: Performed By: #### C MP #### [facility] [address] [place] [address] Dr. Yarely Roe ALT [Catalytic activity/Vol] 9 U/L Critically low 14-59 [facility] Comment on above: Performed By: #### C MP #### [facility] [address] [place] [address] Dr. Yarely Roe Anion gap [Moles/Vol] 11.3 mmol/L Normal [facility] Comment on above: Performed By: #### C MP #### [facility] [address] [place] [address] Dr. Yarely Roe AST [Catalytic activity/Vol] 15 U/L Normal 15-37 [facility] Comment on above: Performed By: #### C MP #### [facility] [address] [place] [address] Dr. Yarely Roe Bilirubin [Mass/Vol] 0.3 mg/dL Normal 0.2-1.3 [facility] Comment on above: Performed By: #### C MP #### [facility] [address] [address] [address] Yarely Roe Calcium [Mass/Vol] 9.4 mg/dL Normal 8.5-10.1 [facility] Comment on above: Performed By: #### C MP #### [facility] [address] [place] [address] Dr. Yarely Roe Chloride [Moles/Vol] 97 mmol/L Critically low 98-107 [facility] Comment on above: Performed By: #### C MP #### [facility] [address] [place] [address] Dr. Yarely Roe CO2 [Moles/Vol] 33.0 mmol/L Critically high 22.0-30.0 [facility] Comment on above: Performed By: #### C MP #### [facility] [address] [place] [address] Dr. Yarely Roe Creatinine [Mass/Vol] 1.40 mg/dL Critically high 0.52-1.04 [facility] Comment on above: Performed By: #### C MP #### [facility] [address] [place] [address] Dr. Yarely Roe EGFR-AF DANISH 44 mL/min/1.73m2 Critically low >=60 [facility] Comment on above: Performed By: #### C MP #### [facility] [address] [place] [address] Dr. Yarely Roe EGFR-NON AF DANISH 37 mL/min/1.73m2 Critically low >=60 [facility] Comment on above: Performed By: #### C MP #### [facility] [address] [place] [address] Dr. Yarely Roe Globulin (S) [Mass/Vol] 4.3 g/dL Normal [facility] Comment on above: Performed By: #### C MP #### [facility] [address] [place] [address] Dr. Yarely Roe Glucose [Mass/Vol] 224 mg/dL Critically high 74-106 [facility] Comment on above: Performed By: #### C MP #### [facility] [address] [place] [address] Dr. Yarely Roe Potassium [Moles/Vol] 3.3 mmol/L Critically low 3.4-5.0 [facility] Comment on above: Performed By: #### C MP #### [facility] [address] [address] [address] Yarely Roe Protein [Mass/Vol] 7.7 g/dL Normal 6.1-8.2 [facility] Comment on above: Performed By: #### C MP #### [facility] [address] [address] [address] Yarely Roe Sodium [Moles/Vol] 138 mmol/L Normal 137-145 [facility] Comment on above: Performed By: #### C MP #### [facility] [address] [address] [address] Yarely Roe Urea nitrogen [Mass/Vol] 27.0 mg/dL Critically high 7.0-18.0 [facility] Comment on above: Performed By: #### C MP #### [facility] [address] [address] [address] Yarely Roe Urea nitrogen/Creatinin e [Mass ratio] 19.3 mg/mg Normal [facility] Comment on above: Performed By: #### C MP #### [facility] [address] [address] [address] Yarely oRe VASC LAB Carotid Artery Dupl ex Ultrasounon 05-08-2020 VAS LAB Carotid Artery Duplex Ultrasoun [address], [address] [place] [address] Vascular Lab Report Carotid Artery Duplex Ultrasound Patient Name: LEXI RAMESH ANNA Reading Physician: [id number] Charlotte Cordon MD, [facility] Study Date: 05/08/2020 Referring Physician: [id number] Tom Ruano MD MRN/PID: [id number] PCP: Li Lee Accession/Order#: [id number] CC Report to: Date of : 1945 Technologist: Surekha Hartley RD, T Gender: F Technologist 2: Admission Status: Outpatient Location Performed: [facility] Diagnosis/ICD: R09.89-Other specified symptoms and signs involving the circulatory and respiratory systems Indication: Diabetes, Hyperlipidemia, Former Smoker, Vertigo, CAD, CABG, Ischemic Cardiomyopathy, PTCA, IA, Obesity Procedure/CPT: 12509 Cerebrovascular Carotid Duplex scan complete-[id number] CONCLUSIONS: Right Carotid: Findings are consistent with [...] cm/s Right Left ICA/CCA Ratio 2.2 0.9 [id number] Charlotte Cordon MD, FACC Final Normal [facility] HEMOGLOBIN A1Con 06-17-2019 HbA1c (Bld) [Mass fraction] 7.5 % Normal [facility] Comment on above: Result Comment: Diag nosis of Diabetes-Adults Non-Diabetic: < or = 5.6% Increased risk for developing diabetes: 5.7-6.4% Diagnostic of diabetes: > or = 6.5% . Monitoring of Diabetes Age (y) Therapeutic Goal (%) Adults: >18 <7.0 Pediatrics: 13-18 <7.5 7-12 <8.0 0- 6 7.5-8.5 [place] [employer]. Diabetes Care 33(S1), Jul 2009. Performed By: #### H BA1E #### [facility] [address] [place] [address] HbA1c (Bld) [Mass fraction] 169 MG/DL Normal [facility] Comment on above: Performed By: #### H BA1E #### [facility] [address] [place] [address] Anthony 06-16-2019 AST [Catalytic activity/Vol] 18 U/L Normal 9 - 39 [facility] Comment on above: Order Comment: Desean nt states she had black coffee this a.m. Performed By: #### A ST #### [address] [address] COMPREHENSIVE PANELon 2018 Albumin [Mass/Vol] 4.1 g/dL Normal 3.4 - 5.0 [facility] Comment on above: Performed By: #### C MP #### [address] [address] ALP [Catalytic activity/Vol] 62 U/L Normal 33 - 136 [facility] Comment on above: Performed By: #### C MP #### [address] [address] ALT [Catalytic activity/Vol] 12 U/L Normal 7 - 45 [facility] Comment on above: Result Comment: Yareli ents treated with Sulfasalazine may generate falsely decreased results for ALT. Performed By: #### C MP #### [address] [address] Anion gap [Moles/Vol] 13 mmol/L Normal 10 - 20 [facility] Comment on above: Performed By: #### C MP #### [address] [address] AST [Catalytic activity/Vol] 16 U/L Normal 9 - 39 [facility] Comment on above: Performed By: #### C MP #### [address] [address] Bilirubin [Mass/Vol] 0.5 mg/dL Normal 0.0 - 1.2 [facility] Comment on above: Performed By: #### C MP #### [address] [address] Calcium [Mass/Vol] 9.8 mg/dL Normal 8.6 - 10.3 [facility] Comment on above: Performed By: #### C MP #### [address] [address] Chloride [Moles/Vol] 103 mmol/L Normal 98 - 107 [facility] Comment on above: Performed By: #### C MP #### [address] [address] Creatinine [Mass/Vol] 1.32 mg/dL High 0.50 - 1.05 [facility] Comment on above: Performed By: #### C MP #### [address] [address] GFR- AM. 47 mL/min/1.73m2 Abnormal >60 [facility] Comment on above: Result Comment: CALC ULATIONS OF ESTIMATED GFR ARE PERFORMED USING THE MDRD STUDY EQUATION FOR THE IDMS-TRACEABLE CREATININE METHODS. CLIN CHEM 2007;53:766-72 Performed By: #### C MP #### [address] [address] GFR-NON AM. 39 mL/min/1.73m2 Abnormal >60 [facility] Comment on above: Performed By: #### C MP #### [address] [address] Glucose [Mass/Vol] 115 mg/dL High 74 - 99 [facility] Comment on above: Performed By: #### C MP #### [address] [address] HCO3 (Bld) [Moles/Vol] 25 mmol/L Normal 21 - 32 [facility] Comment on above: Performed By: #### C MP #### [address] [address] Potassium [Moles/Vol] 5.4 mmol/L High 3.5 - 5.3 [facility] Comment on above: Performed By: #### C MP #### [address] [address] Protein [Mass/Vol] 7.5 g/dL Normal 6.4 - 8.2 [facility] Comment on above: Performed By: #### C MP #### [address] [address] Sodium [Moles/Vol] 136 mmol/L Normal 136 - 145 [facility] Comment on above: Performed By: #### C MP #### [address] [address] Urea nitrogen [Mass/Vol] 40 mg/dL High 6 - 23 [facility] Comment on above: Performed By: #### C MP #### [address] [address] LIPID PANEL (CORONARY RISK 2 )on 06-16-2019 Cholesterol [Mass/Vol] 182 mg/dL Normal 0 - 199 [facility] Comment on above: Order Comment: Desean nt [...] dosing. Performed By: #### L IPID #### [address] [address] Cholesterol in HDL [Mass/Vol] 39.0 mg/dL Abnormal [facility] Comment on above: Order Comment: Desean hernandez states she had black coffee this a.m. Result Comment: . AGE VERY LOW LOW NORMAL HIGH 0-19 Y < 35 < 40 40-45 ---- 20-24 Y ---- < 40 >45 ---- >24 Y ---- < 40 40-60 >60 . Performed By: #### L IPID #### [address] [address] Cholesterol in LDL [Mass/Vol] 92 mg/dL Normal 0 - 99 [facility] Comment on above: Order Comment: Desean hernandez states she had black coffee this a.m. Result Comment: . NEAR BORD AGE DESIRABLE OPTIMAL HIGH HIGH VERY HIGH 0-19 Y 0 - 109 --- 110-129 >/= 130 ---- 20-24 Y 0 - 119 --- 120-159 >/= 160 ---- >24 Y 0 - 99 100-129 130-159 160-189 >/=190 . Performed By: #### L IPID #### [address] [address] Cholesterol in VLDL [Mass/Vol] 51 mg/dL High 0 - 40 [facility] Comment on above: Order Comment: Desean hernandez states she had black coffee this a.m. Performed By: #### L IPID #### [address] [address] Cholesterol.total/ Cholesterol in HDL [Mass ratio] 4.7 {ratio} Normal [facility] Comment on above: Order Comment: Desean hernandez states she had black coffee this a.m. Result Comment: REF VALUES DESIRABLE < 3.4 HIGH RISK > 5.0 Performed By: #### L IPID #### [address] [address] NON-HDL CHOLESTEROL 143 mg/dL Normal [facility] Comment on above: Order Comment: Desean hernandez states she had black coffee this a.m. Result Comment: AGE DESIRABLE BORDERLINE HIGH HIGH VERY HIGH 0-19 Y 0 - 119 120 - 144 >/= 145 >/= 160 20-24 Y 0 - 149 150 - 189 >/= 190 ---- >24 Y 30 MG/DL ABOVE LDL CHOLESTEROL GOAL . Performed By: #### L IPID #### [address] [address] Triglyceride [Mass/Vol] 255 mg/dL High 0 - 149 [facility] Comment on above: Order Comment: Desean hernandez [...] dosing. Performed By: #### L IPID #### [address] [address] Vital Signs Date Time Vital Sign Value Performing Clinician Facility 01-12-2024 16:11040 Body height 149.86 cm MD Stefan Best Work Phone: [facility] 01-12-2024 16:11-0400 Body mass index (BMI) [Ratio] 33.3 kg/m2 MD Stefan Best Work Phone: [facility] 01-12-2024 16:11-0400 Body temperature 96.4 [degF] MD Stefan Best Work Phone: [facility] 01-12-2024 16:[id number] Body weight 74.84 kg MD Stefan Best Work Phone: [facility] 01-12-2024 16:[id number] Diastolic blood pressure 80 mm[Hg] MD Stefan Best Work Phone: [facility] 01-12-2024 16:110400 Heart rate 82 /min MD Stefan Best Work Phone: [facility] 01-12-2024 16:11-0400 Respiratory rate 16 /min MD Stefan Best Work Phone: [facility] 01-12-2024 16:11-0400 SaO2% (BldA) [Mass fraction] 97 % MD Stefan Best Work Phone: [facility] 01-12-2024 16:11-0400 Systolic blood pressure 149 mm[Hg] MD Stefan Best Work Phone: [facility] 12-11-2023 15:50-0400 Body height 149.86 cm MD Stefan Best Work Phone: [facility] 12-11-2023 15:50-0400 Body mass index (BMI) [Ratio] 33.7 kg/m2 MD Stefan Best Work Phone: [facility] 12-11-2023 15:50-0400 Body weight 75.74 kg MD Stefan Best Work Phone: [facility] 12-11-2023 15:50-0400 Diastolic blood pressure 81 mm[Hg] MD Stefan Best Work Phone: [facility] 12-11-2023 15:50-0400 Heart rate 87 /min MD Stefan Best Work Phone: [facility] 12-11-2023 15:50-0400 Systolic blood pressure 167 mm[Hg] MD Stefan Best Work Phone: [facility] 11-27-2023 13:56-0400 Body height 149.86 cm MD Stefan Best Work Phone: [facility] 11-27-2023 13:56-0400 Body mass index (BMI) [Ratio] 33.9 kg/m2 MD Stefan Best Work Phone: [facility] 11-27-2023 13:56-0400 Body weight 76.2 kg MD Stefan Best Work Phone: [facility] 11-27-2023 13:56-0400 Diastolic blood pressure 81 mm[Hg] MD Stefan Best Work Phone: [facility] 11-27-2023 13:56-0400 Heart rate 76 /min MD Stefan Best Work Phone: [facility] 11-27-2023 13:56-0400 Systolic blood pressure 166 mm[Hg] MD Stefan Best Work Phone: [facility] 10-14-2023 13:33-0400 Diastolic blood pressure 68 mm[Hg] Margie [address] [place] [address] 10-14-2023 13:33-0400 Heart rate 78 /min [address] 10-14-2023 13:33-0400 Systolic blood pressure 108 mm[Hg] Margie [address] [place] [address] 09-17-2023 13:07-0500 Body height 149.9 cm Tom Ruano MD Work Phone: [facility] 09-17-2023 13:07-0500 Body mass index (BMI) [Ratio] 33.33 kg/m2 Tom Ruano MD Work Phone: [facility] 09-17-2023 13:07-0500 Body weight 74.84 kg Tom Ruano MD Work Phone: [facility] 09-17-2023 13:07-0500 Diastolic blood pressure 70 mm[Hg] Tom Ruano MD Work Phone: [facility] 09-17-2023 13:07-0500 Heart rate 84 /min Tom Ruano MD Work Phone: [facility] 09-17-2023 13:07-0500 Systolic blood pressure 116 mm[Hg] Tom Ruano MD Work Phone: [facility] 09-09-2023 15:18-0500 Body height 149.86 cm [facility] 09-09-2023 15:18-0500 Body mass index (BMI) [Ratio] 33.3 kg/m2 [facility] 09-09-2023 15:18-0500 Body weight 74.84 kg [facility] 09-09-2023 15:18-0500 Diastolic blood pressure 74 mm[Hg] [facility] 09-09-2023 15:18-0500 Heart rate 86 /min [facility] 09-09-2023 15:18-0500 Systolic blood pressure 117 mm[Hg] [facility] 08-13-2023 13:00-0500 Body height Da Lozano II Other [facility] Other 08-13-2023 13:00-0500 Body height 149.86 cm [facility] 11-12-2022 15:30-0400 Body height Ross Loaizatyler Other [facility] Other 11-12-2022 15:30-0400 Body mass index (BMI) [Ratio] 33.32 kg/m2 Ross Fadiatyler Other [facility] Other 11-12-2022 15:30-0400 Body weight 74.84 kg Ross Darrian Other [facility] Other 07-25-2022 15:55-0500 Body height 149.86 cm Li Lee Work Phone: LF-Mmplsvtqye-Pdvlrla y 250 DO Work Phone: 07-25-2022 15:55-0500 Body mass index (BMI) [Ratio] 34.94 kg/m2 Li Lee Work Phone: AU-Zyqcahymeb-Rximdpw y 250 DO Work Phone: 07-25-2022 15:55-0500 Body surface area Derived from formula 1.73 m2 Li Lee Work Phone: AS-Pmteciailu-Vljcjhl y 250 DO Work Phone: 07-25-2022 15:55-0500 Body weight 78.47 kg Li Lee Work Phone: PZ-Ztzmguicep-Cxheavd y 250 DO Work Phone: 07-25-2022 15:55-0500 Diastolic blood pressure 80 mm[Hg] Li Lee Work Phone: HV-Bunizomdbl-Nuwbtuo y 250 DO Work Phone: 07-25-2022 15:55-0500 Heart rate 66 /min Li Yael Lee Work Phone: QO-Ycsnfstyzq-Xauauoh y 250 DO Work Phone: 07-25-2022 15:55-0500 Systolic blood pressure 120 mm[Hg] Li Yael Lee Work Phone: NV-Zrpwawxclx-Anlcgql y 250 DO Work Phone: 11-02-2021 13:16-0400 Body height 149.86 cm Li Yael Lee Work Phone: [facility] 250 DO Work Phone: 11-02-2021 13:16-0400 Body mass index (BMI) [Ratio] 34.54 kg/m2 Li Lee Work Phone: [facility] 250 DO Work Phone: 11-02-2021 13:16-0400 Body surface area Derived from formula 1.73 m2 Li Conley Rosa Work Phone: [facility] 250 DO Work Phone: 11-02-2021 13:16-0400 Body weight 77.57 kg Li Yael Lee Work Phone: [facility] 250 DO Work Phone: 11-02-2021 13:16-0400 Diastolic blood pressure 80 mm[Hg] Li Conley Rosa Work Phone: [facility] 250 DO Work Phone: 11-02-2021 13:16-0400 Heart rate 66 /min Li Lee Work Phone: [facility] 250 DO Work Phone: 11-02-2021 13:16040 Systolic blood pressure 130 mm[Hg] Li Lee Work Phone: [facility] 250 DO Work Phone: Encounters Encounter Date Encounter Type Care Provider Facility Start: 01-12-2024 End: 01-12-2024 ambulatory MD Stefan Best Work Phone: [facility] Work Phone: Start: 01-12-2024 End: 01-12-2024 Patient encounter procedure MD Stefan Best Work Phone: [facility] Work Phone: Start: 12-11-2023 End: 12-11-2023 ambulatory MD Stefan Best Work Phone: [facility] Work Phone: Start: 12-11-2023 End: 12-11-2023 Patient encounter procedure MD Stefan Best Work Phone: [facility] Work Phone: Start: 12-06-2023 Non-patient / Non-visit MD Sulema Best Work Phone: [facility] Work Phone: Start: 12-02-2023 End: 12-02-2023 ambulatory Da Lozano II Facility:[facility] Start: 12-02-2023 End: 12-02-2023 ambulatory MD Stefan Best Work Phone: [facility] Work Phone: Start: 12-02-2023 End: 12-02-2023 Patient encounter procedure MD Stefan Best Work Phone: [facility] Start: 11-27-2023 Patient encounter status MD Stefan Best Work Phone: [facility] Start: 11-27-2023 End: 11-27-2023 Patient encounter procedure MD Stefan Best Work Phone: [facility] Work Phone: Start: 11-22-2023 Non-patient / Non-visit MD Sulema Best Work Phone: [facility] Work Phone: Start: 11-19-2023 End: 11-20-2023 ambulatory Maxine L Shraddha Facility: [facility] Start: 10-23-2023 End: 10-23-2023 ambulatory [facility] Work Phone: Start: 10-23-2023 End: 10-23-2023 Patient encounter procedure [facility] Work Phone: Start: 10-14-2023 End: 10-15-2023 ambulatory TOM URANO [facility] Start: 10-14-2023 End: 10-14-2023 Subsequent hospital visit by physician Margie Mess[facility] Comment on above: CAD, multiple vessel ; S/P CABG x 3; Ischemic cardiomyopathy; Occlusion and stenosis of right carotid artery; Shortness of breath Start: 09-17-2023 ambulatory Maxine L Shraddha Facility: [facility] Start: 09-17-2023 End: 09-17-2023 Patient encounter procedure [facility] Work Phone: Start: 09-17-2023 End: 09-17-2023 Office outpatient visit 25 minutes Tom Ruano MD Work Phone: [facility] Comment on above: CAD, multiple vessel (Primary Dx); S/P CABG x 3; History of angioplasty; Primary hypertension; Ischemic cardiomyopathy; Mixed hyperlipidemia; BMI 32.0-32.9,adult; Former smoker; Occlusion and stenosis of right carotid artery; Shortness of breath Start: 09-17-2023 End: 09-17-2023 ambulatory [facility] Start: 09-09-2023 End: 09-09-2023 Patient encounter procedure [facility] Work Phone: Start: 09-08-2023 End: 09-09-2023 ambulatory Maxine L Shraddha Facility:[facility] [place] Start: 08-20-2023 End: 08-21-2023 ambulatory Maxine L Shraddha [facility] Start: 08-13-2023 End: 08-13-2023 ambulatory Da Eldon II Other [employer] Other Start: 08-13-2023 Office outpatient vi sit 15 minutes Da Eldon II [facility] Start: 08-13-2023 End: 08-13-2023 Patient encounter procedure [facility] Start: 05-21-2023 End: 05-22-2023 ambulatory Maxine L Shraddha [place] Start: 04-23-2023 (Procedure) Raine Colmenares [facility] Start: 04-23-2023 End: 04-23-2023 ambulatory Ross Colmenares Other [facility] Other Start: 04-07-2023 End: 04-07-2023 ambulatory Ross Colmenares Other [facility] Other Start: 04-07-2023 Telephone encounter Ross Colmenares [facility] Start: 03-27-2023 End: 03-27-2023 ambulatory Da Blake II Other [employer] Other Start: 03-27-2023 Office outpatient vi sit 15 minutes Da Blake II [facility] Start: 03-25-2023 ambulatory Maxine L Shraddha Facility: [facility] Start: 03-05-2023 End: 03-06-2023 ambulatory Maxine L Shraddha Facility:[facility] [place] Start: 02-10-2023 End: 02-11-2023 ambulatory Maxine L Shraddha Facility[place] Start: 02-10-2023 End: 02-10-2023 Lab Drop off Maxine L Shraddha [facility] Start: 02-05-2023 ambulatory Maxine L Shraddha Facility: [facility] [place] Start: 12-25-2022 (Procedure) Short Ross Colmenares [facility] Start: 12-25-2022 End: 12-25-2022 ambulatory Ross Colmenares Other [facility] [employer] Other Start: 11-12-2022 End: 11-12-2022 ambulatory Ross Colmenares Other [facility] [employer] Other Start: 11-12-2022 Office outpatient ne w 45 minutes Ross Colmenares [facility] Start: 11-11-2022 End: 11-11-2022 ambulatory MD Li Lee Work Phone: [facility] Work Phone: Start: 11-11-2022 End: 11-11-2022 Patient encounter procedure MD Li Lee Work Phone: [facility] [place] [facility] Start: 10-09-2022 Rx Renewal Li Lee Work Phone: [facility] 250 DO Work Phone: Start: 07-25-2022 Office outpatient vi sit 25 minutes Li Lee Work Phone: [facility] 250 DO Work Phone: Start: 07-25-2022 ambulatory Tom Ruano II Facility: Start: 07-10-2022 Rx Renewal Li Lee Work Phone: [facility] 250 DO Work Phone: Start: 01-30-2022 End: 01-31-[address] LI LEE Facility:[facility]1 Start: 12-19-2021 Encounter for genera l adult medical examination without abnormal findings DR TOM RUANO [facility] Start: 12-13-2021 End: 12-14-[address] LI LEE Facility:[facility] Start: 12-13-2021 End: 12-14-2021 Encounter for general adult medical examination without abnormal findings DR LI LEE Facility:[facility] Start: 11-02-2021 Office outpatient vi sit 25 minutes Li Lee Work Phone: [facility] 250 DO Work Phone: Start: 11-02-[address] LI LEE Facilit y:[facility]1 Start: 10-18-2021 End: 01-19-[address] LI LEE Facility:[facility]1 Start: 10-15-2021 End: 10-16-[address] LI LEE Facility:[facility]1 Start: 10-11-2021 Rx Renewal Li Lee Work Phone: [facility] DO Work Phone: Start: 09-10-2021 Rx Renewal Li Lee Work Phone: [facility] DO Work Phone: Start: 08-03-2021 AUDIT Li Lee Work Phone: [facility] 250 DO Work Phone: Start: 11-20-2017 Ambulatory BLAKE BOYLEUS Facility :[id number] Start: 09-04-2017 Ambulatory BLAKE MONTANAUS Facility :1532 Start: 04-07-2017 End: 04-08-2017 Ambulatory DEFAULT PHYSICIAN Facility:[facility] Patient encounter status Li Lee Work Phone: [facility] 250 DO Work Phone: Procedures Date Procedure Procedure Detail Performing Clinician Start: 12-02-2023 Methicillin resistan t Staphylococcus aureus culture MD Stefan Best Work Phone: Start: 10-14-2023 NUCLEAR STRESS TEST MARCELA RUANO [...] Li Lee Work Phone: Cataract surgery Li Conley Gigi hartley Work Phone: Cataract surgery Maxine Shraddha section Li Conley Sarakenzie hartley Work Phone: Comment on above: x3; section [facility] Comment on above: Outside Source Comme nt: Comment on above: x3; History of coronary artery bypass grafting S/P CABG x 3 Li Lee Work Phone: History of coronary artery bypass grafting Maxine Shraddha History of coronary artery bypass grafting S/P CABG x 3 Tom Ruano MD Work Phone: History of coronary artery bypass grafting S/P CABG x 3 Margie 1 Plan of Treatment Date Care Activity Detail Author Start: 06-09-2024 End: 06-09-2024 Patient encounter procedure 06/09/2024 11:30 AM EST Office Visit [facility] [address] [facility] [address] [place] [address] Jeimy Braun, GLUE MAKER BONE-CHIEF OF PRODUCTION [address] [facility] [address] [place] [address] [facility] Start: 03-14-2024 Influenza vaccination Influenz a Vaccine (Season Ended) [facility] Start: 12-12-2023 Patient referral [facility] Work Phone: Start: 12-02-2023 MRSA Culture MRSA Culture [facility] Start: 09-17-2023 End: 09-16-2025 NM Heart Perfusion W stress and W radionuclide IV Nuclear Stress Test Cardiac Nuclear Medicine Routine CAD, multiple vessel S/P CABG x 3 Ischemic cardiomyopathy Occlusion and stenosis of right carotid artery Shortness of breath Expected: 09/17/2023 (Approximate), Expires: 09/16/2025 [facility] Service Area Work Phone: Comment on above: Expected: 09/17/2023 (Approximate), Expires: 09/16/2025 Start: 07-23-2023 FUV, Provider: Tom Ruano, Status: Pen, Time: 3:40 PM FUV, Provider: Tom Ruano, Status: Pen, Time: 3:40 PM OX-Jnbkh[facility]cn[facility] 250 DO Work Phone: Start: 07-19-2023 Glaucoma screening Diabetes: R etinopathy Screening [facility] Start: 03-14-2023 COVID-19 Vaccine ( season) COVID-19 Vaccine ( season) [facility] Start: 03-14-2023 Influenza vaccination Influenza Vacc ine (#1) [facility] Start: 11-11-2022 X-ray of lumbar spin e, four views XR lumbar spine AP/LAT/FLX/EXT [facility] Start: 11-11-2022 Plain X-ray of left hip XR hip LT min 2V(w/wo pelvis)* [facility] Start: 11-11-2022 XR Hip - left 2 Views F [facility] Start: 07-25-2022 FUV, Provider: Tom Ruano, Status: Pen, Time: 3:30 PM FUV, Provider: Tom Ruano, Status: Pen, Time: 3:30 PM -[facility] 250 DO Work Phone: Start: 04-19-2022 FUV, Provider: Tom Ruano, Status: Pen, Time: 3:20 PM FUV, Provider: Tom Ruano, Status: Pen, Time: 3:20 PM -[facility] 250 DO Work Phone: Start: 11-02-2021 FUV, Provider: Tom Ruano, Status: Pen, Time: 1:15 PM FUV, Provider: Tom Ruano, Status: Pen, Time: 1:15 PM -[facility] 250 DO Work Phone: Start: 06-16-2020 Lipid panel Lipid Panel [facility] Start: 09-15-2019 Hemoglobin A1c measurement Diabetes: Hemoglobin A1C [facility] Start: 1995 Zoster Vaccines (1 of 2) Zoster Vacc alli (1 of 2) [facility] Start: 1967 DTaP/Tdap/Td Vaccine s (1 - Tdap) DTaP/Tdap/Td Vaccines (1 - Tdap) [facility] Start: 1964 Urine screening for protein Diabetes: Urine Protein Screening [facility] Start: 1963 Hepatitis C screening Hepatitis C Sc reening [facility] Start: 1955 Diabetic foot examination Diabetes: Foot Exam [facility] Start: 1945 Medicare Annual Well ness Visit Medicare Annual Wellness Visit (AWV) [facility] Start: 1945 Screening for osteoporosis Bone Density Scan [facility] Bacteria identified in Urine by Culture [facility] Cotinine [Mass/volum e] in Serum or Plasma [facility] Immunofixation for Urine Fir [facility] Nicotine [Mass/volum e] in Serum or Plasma [facility] Patient Education Low back pain in adults [facility] Work Phone: Patient referral [facility] Work Phone: Renal function 2000 panel - Serum or Plasma [facility] US Kidney - bilateral [facility] Immunizations Immunization Date Immunization Notes Care Provider Yon slaughter 07-03-2022 Fluad Quadrivalent 0 .5 ML Intramuscular Prefilled Syringe Li Lee Work Phone: [facility] 250 DO Work Phone: 07-03-2022 influenza virus vacc ine, unspecified formulation Maxine Shraddha [facility] 07-03-2022 influenza, injectabl e, quadrivalent, contains preservative Tom Ruano MD Work Phone: [facility] Work Phone: 06-17-2022 Pfizer COVID-19 Vac Bivalent 30 MCG/0.3ML Intramuscular Suspension Li Lee Work Phone: [facility] Comment on above: Result Comment: 2022: [id number] 04-13-2021 Pfizer-BioNTech COVI D-19 Vacc 30 MCG/0.3ML Intramuscular Suspension Li Lee Work Phone: [facility] Comment on above: Result Comment: 2022: [id number] 08-30-2020 Pfizer-BioNTech COVI D-19 Vacc 30 MCG/0.3ML Intramuscular Suspension Li Lee Work Phone: [facility] Comment on above: Result Comment: 2022: [id number] 08-09-2020 Pfizer-BioNTech COVI D-19 Vacc 30 MCG/0.3ML Intramuscular Suspension Li Lee Work Phone: [facility] Comment on above: Result Comment: 2022: [id number] 07-01-2019 influenza virus vacc ine, unspecified formulation Maxine Shraddha [facility] 07-01-2019 influenza, injectabl e, quadrivalent, contains preservative Li Lee Work Phone: [facility] 250 DO Work Phone: 07-14-2018 influenza virus vacc ine, unspecified formulation Li Lee Work Phone: [facility] 04-16-2018 influenza virus vacc ine, unspecified formulation Maxine Shraddha [facility] 04-16-2018 pneumococcal polysaccharide vaccine, 23 valent Li Lee Work Phone: [facility] 04-13-2018 influenza virus vacc ine, unspecified formulation Li Lee Work Phone: [place] [address] DO Work Phone: 04-13-2018 pneumococcal conjuga te vaccine, 13 valent Li Lee Work Phone: [facility] 250 DO Work Phone: 05-16-2017 influenza virus vacc ine, unspecified formulation Maxine Shraddha [facility] 05-12-2017 influenza, high dose seasonal, preservative-free Li Lee Work Phone: [place] [address] DO Work Phone: 10-30-2016 pneumococcal conjuga te vaccine, 13 valent Li Lee Work Phone: [facility] 10-12-2016 pneumococcal polysaccharide vaccine, 23 valent Li Lee Work Phone: [place] [address] DO Work Phone: 07-14-2011 influenza virus vacc ine, unspecified formulation Li Lee Work Phone: [place] [address] DO Work Phone: Payers Date Payer Category Payer Self-pay [id number] 2023 Medicare [id number] 2022 Unknown 2010 Medicare MEDICARE MEDICAR E PART A AND B [id number] 2010-Present [address] [place] [address] [id number] 2010 Medicare [id number] [id number] 1959 Medicare [id number] 1959 Self-pay [id number] 1959 Unknown [id number] 1945 Unknown [id number] 2.16.840.1.852738.3.579.2.593 1945 Unknown [id number] 2.16.840.1.765687.3.579.2.593 1945 Unknown [id number] 2.16.840.1.342359.3.579.2.593 1945 Unknown [id number] 2.16.840.1.877595.3.579.2.593 1945 Unknown [id number] 2.16.840.1.230303.3.579.2.593 1945 Unknown [id number] 2.16.840.1.811369.3.579.2.356 1945 Unknown [id number] 2.16.840.1.481513.3.579.2.356 1945 Unknown [id number] 2.16.840.1.292220.3.579.2.1246 1945 Unknown [id number] 2.16.840.1.729305.3.579.2.1246 1945 Unknown [id number] 2.16.840.1.136987.3.579.2.1246 1945 Unknown [id number] 2.16.840.1.341702.3.579.2.1246 1945 Unknown [id number] 2.16.840.1.422627.3.579.2.1246 1945 Unknown [id number] 2.16.840.1.010767.3.579.2.727 1945 Unknown [id number] 2.16.840.1.274871.3.579.2.727 1945 Unknown [id number] 2.16.840.1.733402.3.579.2.727 1945 Unknown [id number] 2.16.840.1.603171.3.579.2.727 1945 Unknown [id number] 2.16.840.1.755270.3.579.2.72 1945 Unknown [id number] 2.16.840.1.585162.3.579.2.72 1945 Unknown [id number] 2.16.840.1.600452.3.579.2.7 1945 Unknown [id number] 2.16.840.1.954069.3.579.2. 1945 Unknown [id number] 2.16.840.1.253002.3.579.2.72 1945 Unknown [id number] 2.16.840.1.308952.3.579.2.727 1945 Unknown [id number] 2.16.840.1.690371.3.579.2.727 1945 Unknown [id number] 2.16.840.1.508364.3.579.2.72 1945 Unknown [id number] 2.16.840.1.069077.3.579.2.727 1945 Unknown [id number] 2.16.840.1.534174.3.579.2.1244 Medicare [id number] Unknown [id number] 2.16.840.1.025277.3.579.2.531 Social History Date Type Detail Facility Start: 07-08-2023 End: 09-17-2023 Former smoker Former smoker [place] [address] DO Work Phone: Comment on above: Quit 17 years ago; Quit 25+ years ago; coffee occasionally soda, tea; Start: 08-06-2018 End: 01-12-2024 Tobacco smoking status NHIS Ex-smoker (finding) [facility] Start: 1945 Sex Assigned At Female F [facility] Start: 07-08-2023 End: 09-17-2023 Sex Assigned At [facility] Tobacco smoking status Never Mina Recinos [facility] End: 07-14-1996 History of tobacco use Current smoker [facility] Work Phone: End: 07-14-1996 History of tobacco use Cigarette Smoker [facility] Work Phone: Start: 07-08-2023 Tobacco use and exposure Smoke less tobacco non-user [facility] Work Phone: Start: 09-17-2023 Alcohol intake Current drinke r of alcohol (finding) [facility] Work Phone: Start: 07-08-2023 Alcohol Comment occasional [facility] Work Phone: Start: 1945 Sex Assigned At Not on file U [facility] Work Phone: Start: 09-07-2023 End: 10-14-2023 Exposure to SARS-CoV-2 (event) Not sure [facility] Start: 08-13-2023 Tobacco smoking stat us LAIS Never smoked tobacco (finding) [facility] Medical Equipment Procedure Code Equipment Code Equipment Origin al Text Equipment Identifier Dates AAA repair with graft GRAFT HEMASHIELD [id number] FDA Start: 07-20-2018 AAA repair with graft IR STENT SMART 9 X 40 120 CM FDA Start: 07-20-2018 AAA repair with graft GRAFT HEMASHIELD [id number] FDA Start: 07-20-2018 AAA repair with graft IR STENT SMART 9 X 40 120 CM FDA Start: 07-20-2018 AAA repair with graft GRAFT HEMASHIELD [id number] FDA Start: 07-20-2018 AAA repair with graft IR STENT SMART 9 X 40 120 CM FDA Start: 07-20-2018 AAA repair with graft GRAFT HEMASHIELD [id number] FDA Start: 07-20-2018 AAA repair with graft IR STENT SMART 9 X 40 120 CM FDA Start: 07-20-2018 AAA repair with graft GRAFT HEMASHIELD [id number] FDA Start: 07-20-2018 AAA repair with graft [...] normal. Allergies Williams inhibitors, Atorvastatin, Spironolactone, and Okbpiox-eky-psj reductase inhibitors Current Medications Current Outpatient Medications: [...] discussion and plan. documented in this encounter [facility] Work Phone: 09-17-2023 Instructions Kaleigh Funez LPN [...] of your visit. documented in this encounter [facility] Work Phone: 09-09-2023 Note [id number]#1.00TIFF [facility] 09-09-2023 Note [id number]#1.00TIFF [facility] 09-01-2023 Note [id number]#1.00TIFF [facility] 08-13-2023 Evaluation note Encounter Date Diagnosis Assessment Notes Jul, Primary osteoarthritis of left hip (ICD-10 - M16.12) Jul, Other We have provided her a few names of [facility] physicians that are currently taking new patients [...] can see her 3 months after that. [facility] Other 09-14-2023 Evaluation note* Encounter Date Diagnosis [...] is considering changing from her current PCP [facility] Other 05-02-2023 Evaluation note* Encounter Date Diagnosis [...] Above note written by Ramandeep Aggarwal LPN, Flask Cleaner. Edited and approved by Dr. Ross Colmenares [...] negative findings were considered in medical decision-making. [facility] Other 05-01-2017 History general Narrative - Reported* Type Description Date Medical History IA Medical History Hyperlipiedmia Medical History PVD Medical History DM Medical History HTN Surgical History Open Heart 11/2016 Surgical History Cardiac Stent 09/2017 Surgical History Cardiac Stent 05/2017 Surgical History C- section 1960 Surgical History Rt iliac angioplasty & stent; Aortobiiliac bifurcation graft 07/20/18 Hospitalization History See above [facility] Other Evaluation + Plan note Future Appointments Appointment Date:03/25/2023 01:00:00 PM Scheduled Provider: Location:[facility] Appointment Type:FM Medicare Wellness [facility] assessment information available [facility] Work Phone: Evaluation noteNo InformationNort [employer] Other Evaluation note* Diagnosis CAD, multiple vessel- Primary S/P CABG x 3 Postsurgical aortocoronary bypass status History of angioplasty Primary hypertension Unspecified essential hypertension Ischemic cardiomyopathy Other specified forms of chronic ischemic heart disease Mixed hyperlipidemia BMI 32.0-32.9,adult Former smoker Personal history of tobacco use, presenting hazards to health Occlusion and stenosis of right carotid artery Shortness of breath documented in this encounter [facility] Work Phone: Evaluation note* Diagnosis CAD, multiple vessel S/P CABG x 3 Postsurgical aortocoronary bypass status Ischemic cardiomyopathy Other specified forms of chronic ischemic heart disease Occlusion and stenosis of right carotid artery Shortness of breath documented in this encounter [facility] Work Phone: Evaluation note* Diagnosis Onset Date Resolution Status Osteoarthritis of left hip a cute Type 2 diabetes mellitus with hyperglycemia acute UTI (urinary tract infection) acute Lumbar pain acute Osteoarthritis of left hip a cute Uncontrolled diabetes mellitus acute [facility] Work Phone: Evaluation note* Diagnosis Onset Date Resolution Status Osteoarthritis of left hip a cute Type 2 diabetes mellitus with hyperglycemia acute UTI (urinary tract infection) acute Lumbar pain acute Osteoarthritis of left hip a cute Uncontrolled diabetes mellitus acute OAB (overactive bladder) acu te Preoperative examination acu te Primary osteoarthritis of left hip acute Type 2 diabetes mellitus with hyperglycemia acute [facility] Work Phone: Evaluation note* Diagnosis Onset Date Resolution Status Lumbar pain acute Osteoarthritis of left hip a cute Uncontrolled diabetes mellitus acute OAB (overactive bladder) acu te Preoperative examination acu te Primary osteoarthritis of left hip acute Type 2 diabetes mellitus with hyperglycemia [facility] Work Phone: Evaluation note* Diagnosis Onset Date Resolution Status OAB (overactive bladder) acu te Preoperative examination acu te Primary osteoarthritis of left hip acute Type 2 diabetes mellitus with hyperglycemia acute Anemia acute CKD stage 4 due to type 2 diabetes mellitus acute OAB (overactive bladder) acu te Primary osteoarthritis of left hip acute Anemia of renal disease acut e CKD (chronic kidney disease) stage 4, GFR 15-29 ml/min acute Hyperlipidemia acute [id number] acute Secondary hyperparathyroidism acute Type 2 diabetes mellitus wit h diabetic chronic kidney disease acute [facility] Work Phone: History of Present illness [...] are reviewed and felt to be satisfactory. [place] [address] DO Work Phone: History of Present illness [...] are reviewed and felt to be satisfactory. -[place] [address] DO Work Phone: History of Present illness [...] we suggest no change and follow-up as wisemPB-Tgzmfszbpp-Qegtioog 250 DO Work Phone: Hospital course Narrative No data available for this section [facility] No data available for this section [facility] No data available for this section [facility] for [facility] (narrative)* Consultation (Routine) - Authorized Specialty Diagnoses / Procedures Referred By Contac t Referred To Contact Cardiology Diagnoses Occlusion and stenosis of right carotid artery Procedures Follow Up In Cardiology Tom Ruano MD [address] [place] [address] [address], [address] [place] [id number] Jeimy Braun, GLUE MAKER BONE-CHIEF OF PRODUCTION [address] [facility] [address], [address] [place] [address] Referral ID Status Reason Start Date Expiration Date V isits Requested Visits Authorized [id number] Authorized 09/17/2023 09/16/2024 1 1 * Cardiac Stress Testing (Routine) - Pending Review Specialty Diagnoses / Procedures Referred By Contmiguelangel t Referred To Contact Radiology Diagnoses CAD, multiple vessel S/P CABG x 3 Ischemic cardiomyopathy Occlusion and stenosis of right carotid artery Shortness of breath Procedures Nuclear Stress Test CHG MYOCARDIAL SPECT MULTIPLE STUDIES Tom Ruano MD [address] [place] [address] [address], [address] [address] Referral ID Status Reason Start Date Expiration Date V isits Requested Visits Authorized [id number] Pending Review 09/17/2023 09/16/2024 5 5 [facility] Work Phone: Reason for visit NarrativeNEW SELF REFERRAL [facility] [employer] Other Summary Purpose Family History Unknown Family [...] is of left hip (M16.12) Referral Organization [facility] Referring Provider First Name Ross Referring Provider Last Name Darrian Referring Provider Specialty Pain Medici ne Referred Organization [facility] Referred Provider Da Lozano II Referred Address [address] [place] [address] Lesli [place], [place],[address] Referred Provider Specialty Orthopedic S urgery Referral [...] MULTIPLE STUDIES Tom Ruano MD [address] [facility] [address], [address] [place] [address] Referral ID Status Reason Start Date Expiration Date V isits Requested Visits Authorized [id number] Pending Review 09/17/2023 09/16/2024 5 5 Chief [...] hip Type 2 diabetes mellitus with hyperglycemia Chief Complaint op sp discuss next s tep UTI - UA presurgical clearence. lt total hip M16.12 Z79.899 M81.0 pre surgical testing results Reason for Visit Lumbar pain Osteoarthritis of left hip Uncontrolled diabetes mellitus OAB (overactive bladder) Preoperative examination Primary osteoarthritis of left hip Type 2 diabetes mellitus with hyperglycemia Chief Complaint UTI - UA presurgical clearence. lt total hip M16.12 Z79.899 M81.0 pre surgical testing results RENAL CKD 4 Reason for Visit OAB (overactive blad edmund) Preoperative examination Primary osteoarthritis of left hip Type 2 diabetes mellitus with hyperglycemia Anemia CKD stage 4 due to type 2 diabetes mellitus OAB (overactive bladder) Primary osteoarthritis of left hip Anemia of renal disease CKD (chronic kidney disease) stage 4, GFR 15-29 ml/min Hyperlipidemia [id number] Secondary hyperparathyroidism Type 2 diabetes mellitus with diabetic chronic kidney disease Additional Source Comments INFORMATION SOURCE (unrecogn ized section and content) DATE CREATED AUTHOR 12/31/2017 [facility] DATE CREATED AUTHOR AUTHOR'S ORGANIZ ATION 01/07/2018 [facility] DATE CREATED AUTHOR AUTHOR'S ORGANIZ ATION 05/17/2020 [facility] DATE CREATED AUTHOR AUTHOR'S ORGANIZ ATION 02/14/2022 [facility] DATE CREATED AUTHOR AUTHOR'S ORGANIZ ATION 07/26/2022 [facility] DATE CREATED AUTHOR AUTHOR'S ORGANIZ ATION 07/26/2022 [employer] DATE CREATED AUTHOR AUTHOR'S ORGANIZ ATION 10/18/2023 [facility] DATE CREATED AUTHOR AUTHOR'S ORGANIZ ATION 11/21/2023 [facility] DATE CREATED AUTHOR AUTHOR'S ORGANIZ ATION 12/10/2023 [facility] DATE CREATED AUTHOR AUTHOR'S ORGANIZ ATION 01/03/2024 [facility] Nurse Practitioner Adult Teams (unrecognized sec tion and content) Team Status: Active Member Role Status Dates Li Lee MD Primary Care Provider Active Team Status: Inactive Member Role Status Dates Li Lee MD Primary Care Provider Active Ross Colmenares MD Attending Provider Active Licensed Sales Assistant Relationship Specialty Start Date End Date Tom Ruano MD [address] [facility] [address] [place] [address] PCP - MSSP ACO Attributed Provider 01/11/23 Stefan Best MD [address] [place] [address] PCP - General Family Medicine 09/17/23 Licensed Sales Assistant Relationship Specialty Start Date End Date Tom Ruano MD [address] [facility] [address] [place] [address] PCP - MSSP ACO Attributed Provider 01/11/23 Stefan Best MD [address] [place] [address] PCP - General Family Medicine 09/17/23 Licensed Sales Assistant Relationship Specialty Start Date End Date Tom Ruano MD [address] [facility] [address], [address] [place] [address] PCP - MSSP ACO Attributed Provider 01/11/23 Stefan Best MD [address] [place] [address] PCP - General Family Medicine 09/17/23 Licensed Sales Assistant Relationship Specialty Start Date End Date Tom Ruano MD [address] [facility] [address], [address] [place] [address] PCP - MSSP ACO Attributed Provider 01/11/23 Stefan Best MD [address] [place] [address] [place] [address] PCP - General Family Medicine 09/17/23 Licensed Sales Assistant Relationship Specialty Start Date End Date Tom Ruano MD [address] [facility] [address] [place] [address] PCP - MSSP ACO Attributed Provider 01/11/23 Stefan Best MD [address] [place] [address] [place] [address] PCP - General Family Medicine 09/17/23 Team [...] 2023 Team Status: Inactive Member Role Status Celia Best MD Primary Care Provider Active Start: September 17, 2023 End: September 17, 2023 Da Lozano II, MD Attending Provider Active Start: September 17, 2023 End: September 17, 2023 Team Status: Inactive Member Role Status Celia Best MD Primary Care Provide r, Attending Provider Active Start: October 23, 2023 End: October 23, 2023 Team Status: Active Member Role Status Celia Best MD Primary Care Provide r, Attending Provider Active Start: November 22, 2023 Team Status: Inactive Member Role Status Celia Best MD Primary Care Provide r, Attending Provider Active Start: November 27, 2023 End: November 27, 2023 Team Status: Inactive Member Role Status Celia Best MD Primary Care Provider Active Start: December 02, 2023 End: December 02, 2023 Da Lozano II, MD Attending Provider Active Start: December 02, 2023 End: December 02, 2023 Team Status: Active Member Role Status Dates Stefan Best MD Primary Care Provide r, Attending Provider Active Start: December 06, 2023 Team Status: Inactive Member Role Status Dates Stefan Best MD Primary Care Provide r, Attending Provider Active Start: December 11, 2023 End: December 11, 2023 Team Status: Inactive Member Role Status Dates Stefan Best MD Primary Care Provider Active Start: January 12, 2024 End: January 12, 2024 Leroy Ashby MD Attending Provider Active Start : January 12, 2024 End: January 12, 2024 Goals (unrecognized section and content) Goals may be documented in a n alternate sectionNo InformationNo Information No data available for this sectionNo InformationNo InformationNo InformationNo InformationGoals may be documented in an alternate sectionGoals may be documented in an alternate sectionGoals may be documented in an alternate sectionGoals [...] SPECT MULTIPLE STUDIES Tom Ruano MD [address] [place] [address] Referral ID Status Reason Start Date Expiration Date V isits Requested Visits Authorized [id number] Pending Review 09/17/2023 09/16/2024 5 5 FOR [...] BE BASED ON THE PRIMARY CLINICAL RECORDS. [employer] provides no warranty or guarantee of the accuracy or completeness of information in this document.
== END 2024-01-17 10:49 | disposition home or self-care (01) ==
LOC: US 10:49
PROVIDERS: PCP Family Medicine; Visit Provider Internal Medicine
DX: N25.81 Secondary hyperparathyroidism of renal origin (principal); E78.5 Hyperlipidemia, unspecified; N18.9 Chronic kidney disease, unspecified; D63.1 Anemia in chronic kidney disease; I12.9 Hypertensive chronic kidney disease with stage 1 through stage 4 chronic kidney disease, or unspecified chronic kidney disease; E11.22 Type 2 diabetes mellitus with diabetic chronic kidney disease; N13.30 Unspecified hydronephrosis
CPT/HCPCS: 76775

== ENCOUNTER 2024-03-17 11:39 | Outpatient (OUT) | payer MEDICARE, SELFPAY ==
[2024-03-17 12:34] LABS: Hematocrit 37.9 % (36.0-48.0); Hemoglobin 11.6 g/dL (12.0-16.0); Mean Corpuscular HGB Conc 30.6 g/dL (29.9-35.2); Mean Corpuscular Hemoglobin 31.2 pg (26.7-34.0); Mean Corpuscular Volume 101.9 fL (81.0-99.0); Mean Platelet Volume 11.5 fL (9.5-13.5); Platelet Count 232 10^3/uL (150-450); Red Blood Count 3.72 10^6/uL (4.20-5.40); Red Cell Distribution Width 15.3 % (11.0-15.0); White Blood Count 9.1 10^3/uL (4.0-11.0)
[2024-03-17 13:49] LABS: Albumin Level 3.1 g/dL (3.4-5.0); Anion Gap 14.5; BUN Creatinine Ratio 21.6; Calcium 9.8 mg/dL (8.5-10.1); Carbon Dioxide 29.6 mmol/L (21.0-32.0); Chloride 100 mmol/L (98-107); Estimated GFR (African America 35 (>=60); Estimated GFR (Non-African Ame 29 (>=60); Glucose 137 mg/dL (74-106); Magnesium 1.9 mg/dL (1.8-2.4); Phosphorus 3.6 mg/dL (2.6-4.7); Potassium 4.1 mmol/L (3.5-5.1); Sodium 140 mmol/L (136-145); Uric Acid 4.6 mg/dL (2.6-6.0)
[2024-03-17 14:13] LABS: Percent Iron Saturation 25.4 %
[2024-03-18 04:08] LABS: Vitamin B12 456 pg/mL (232-1245)
[2024-03-18 14:10] LABS: PTH, Intact 28 pg/mL (15-65)
[2024-03-18 18:08] LABS: Albumin 3.2 g/dL (2.9-4.4); Alpha-1-Globulin 0.3 g/dL (0.0-0.4); Alpha-2-Globulin 1.3 g/dL (0.4-1.0); Free Kappa Lt Chains,S 112.4 mg/L (3.3-19.4); Gamma Globulin 1.1 g/dL (0.4-1.8); Immunofixation Result, Serum Comment: (.); Immunoglobulin A, Qn, Serum 366 mg/dL (64-422); Immunoglobulin G, Qn, Serum 1043 mg/dL (586-1602); Immunoglobulin M, Qn, Serum 87 mg/dL (26-217); Kappa/Lambda Ratio,S 1.84 (0.26-1.65); Protein, Total 6.9 g/dL (6.0-8.5)
== END 2024-03-17 11:40 | disposition home or self-care (01) ==
LOC: LAB 11:39
PROVIDERS: PCP Family Medicine; Visit Provider Internal Medicine
DX: E78.5 Hyperlipidemia, unspecified (principal); N25.81 Secondary hyperparathyroidism of renal origin; N18.9 Chronic kidney disease, unspecified; D63.1 Anemia in chronic kidney disease; I12.9 Hypertensive chronic kidney disease with stage 1 through stage 4 chronic kidney disease, or unspecified chronic kidney disease; E11.22 Type 2 diabetes mellitus with diabetic chronic kidney disease
CPT/HCPCS: 36415; 80069; 81001; 82306; 82570; 82607; 82728; 82746; 82784; 83521; 83540; 83550; 83735; 83970; 84155; 84156; 84165; 84166; 84550; 85027; 86335

== ENCOUNTER 2024-03-19 15:17 | Outpatient (REF) | payer MEDICARE, SELFPAY ==
[2024-03-19 15:46] LABS: Bilirubin Urine NEGATIVE (NEGATIVE); Blood Urine SMALL (NEGATIVE); Clarity Urine SL CLOUDY (CLEAR); Color Urine YELLOW (YELLOW); Glucose Urine UA NEGATIVE (NEGATIVE); Ketones Urine NEGATIVE (NEGATIVE); Leukocyte Esterase Urine LARGE (NEGATIVE); Nitrite Urine POSITIVE (NEGATIVE); Protein Urine 100 mg/dL (NEG/TRACE); Urobilinogen Urine 0.2 EU/dL (0.2-1.0)
[2024-03-19 15:53] LABS: Bacteria Urine MODERATE #/HPF (NONE SEEN); Cast Seen? NONE SEEN #/LPF (NONE SEEN); Crystals Seen? None Seen #/HPF (None Seen); Mucus Urine NONE SEEN (NONE SEEN); Squamous Epithelial Cell Urine FEW #/LPF (NONE/RARE); WBC Urine >100 #/HPF (NONE SEEN)
[2024-03-19 15:58] LABS: Creatinine Urine Random 25.17 mg/dL (20.00-300.00); Protein Creatinine Ratio Urine 3.09; Total Protein Urine Random 77.9 mg/dL (<=11.9)
== END 2024-03-19 15:18 | disposition home or self-care (01) ==
LOC: LAB 15:17
PROVIDERS: PCP Family Medicine; Visit Provider Internal Medicine
DX: E78.5 Hyperlipidemia, unspecified (principal); N25.81 Secondary hyperparathyroidism of renal origin; N18.9 Chronic kidney disease, unspecified; D63.1 Anemia in chronic kidney disease; I12.9 Hypertensive chronic kidney disease with stage 1 through stage 4 chronic kidney disease, or unspecified chronic kidney disease; E11.22 Type 2 diabetes mellitus with diabetic chronic kidney disease
CPT/HCPCS: 81001; 82570; 84156; 84166; 86335

== ENCOUNTER 2024-09-26 22:40 | Observation (INO) | payer MEDICARE, SELFPAY ==
[2024-09-26 22:42] VITALS: BP 159/90; PULSE 75; TEMP 37.7; O2SAT 97; BMI 33.3
--- OUTSIDE RECORDS SUMMARY | 2024-09-26 22:47 | XMS_ITS | CCD ---
Author Organization [facility] Care Team Providers Care Lime Mixer Name Role Phone BLAKE KUO Unavailable Unavailable SHITAL, LI Unavailable Unavailable BLAKE KUO Unavailable Unavailable SHITAL, LI Unavailable Unavailable PHYSICIAN, DEFAULT Unavailable Unavailable PHYSICIAN, DEFAULT Unavailable Unavailable Li Lee Unavailable Unavailable Unavailable SHITAL, DR LI Conley Primary Care Unavailable LEE, DR LI Conley Admitting Unavailable LEE, DR LI Conley Attending Unavailable LEE, DR LI Conley Consulting Unavailable [place], DR Ren Consulting Unavailable LEE, DR LI [...] Unavailable McGuinn IITom Referring Unav ailable LeeLi Primary Care Unavailable McGuinn II, Tom Green Attending Unav ailable McGuinn IITom Referring Unav ailable Lee, Li Miller Primary Care Unavailable FatmatauinTom foss II Attending Unav ailMD Li Soliz Primary Care Provider MD Ross Colmenares Attending Provider Ross Colmenares Unavailable Maxine Llanes Primary Care Physician [phone] Da Lozano II Unavailable Tom Morales MD Unavailable Stefan Best MD Primary Care Provider MD Stefan Best Primary Care Provider MD Da Lozano II Attending Provider MD Alyssa Ramírez Emergency Provider DO Norberto Pires Admit Provider DO Rl Piresistopher Attending Provider MD Gita Azevedo Other Provider MD Yaniv Natarajan Other Provider [phone] Shraddha, LOOSELEAF BINDER COVERER Maxine L Attending Unavailable Shraddha, LOOSELEAF BINDER COVERER Maxine L Attending Unavailable Shraddha, LOOSELEAF BINDER COVERER Maxine L Attending Unavailable Shraddha, LOOSELEAF BINDER COVERER Maxine L Attending Unavailable Shraddha, LOOSELEAF BINDER COVERER Maxine L Attending Unavailable Shraddha, LOOSELEAF BINDER COVERER Maxine L Attending Unavailable COOKYaniv P Attending Unavailable Shraddha, LOOSELEAF BINDER COVERER Maxine L Attending Unavailable Shraddha, LOOSELEAF BINDER COVERER Maxine L Admitting Unavailable Shraddha, LOOSELEAF BINDER COVERER Maxine L Attending Unavailable Shraddha, LOOSELEAF BINDER COVERER Maxine L Admitting Unavailable COOKYaniv P Attending Unavailable COOKYaniv Referring Unavailable COOKYaniv Attending Unavailable Shraddha, LOOSELEAF BINDER COVERER Maxine L Attending Unavailable Shraddha, LOOSELEAF BINDER COVERER Maxine L Attending Unavailable Ross, Baljit Attending Unavailable Damian RUSS Admitting Unavailable OJUKWU, Mbanefo Attending Unavailable OJUKWU, Mbanefo Admitting Unavailable STEFAN BEST Primary Care Physician KADE Mbyokastafo Attending Unavailable KADE, Mbanefo Admitting Unavailable MD Stefan Best Primary Care Provider [phone] MD Stefan Best Attending Provider TOM MORALES Referring Unavailable STEFAN BEST Primary Care Unavailable TOM MORALES Referring Unavailable STEFAN BEST Primary Care Unavailable Stefan Best MD Attending Provider [phone] Stefan Best MD Primary Care Provider [phone] Yaniv Natarajan MD Attending Provider Yaniv NATARAJAN Attending Unavailable Stefan Best MD Attending Provider [phone] Da Lozano MD Attending Provider Stefan Best MD Primary Care Provider TOM MORALES Attending Unavailable BEST, STEFNA E Primary Care Unavailable BRAUN ANGELA Liang Attending Unavailable TOM MORALES Referring Unavailable BEST, STEFAN E Primary Care Unavailable Stefan Best MD Primary Care Provider Stefan Best MD Attending Provider Da Lozano II Admitting Unavailabl e [place] II, Da Artis Attending Unavailabl e Best, Stefan E Primary Care Unavailable Best, Stefan E Admitting Unavailable Stefan Best Attending Unavailable Gita Azevedo Consulting Unavailable Pranay, Norberto Admitting Unavailabl e Pranay, Norberto Attending Unavailabl e Best, Stefan E Primary Care Unavailable Yaniv Natarajan Consulting Unavailable Best, Stefan E Admitting Unavailable Best, Stefan E Primary Care Unavailable Stefan Best Attending Unavailable Yaniv Natarajan Admitting Unavailable Yaniv Natarajan Attending Unavailable Best, Stefan E Primary Care Unavailable Sage, Stefan E Primary Care Unavailable Da Lozano II Admitting Unavailabl e Blake II, Da Artis Attending Unavailabl e CookYaniv Admitting Unavailable Yaniv Natarajan Attending Unavailable Sage, Stefan E Primary Care Unavailable Sage, Stefan E Primary Care Unavailable Da Lozano II Admitting Unavailabl e [place] II, Da Artis Attending Unavailabl e Best, Stefan E Primary Care Unavailable Da Lozano II Attending Unavailabl e EtowahDa atkinson II Admitting Unavailabl e Best, Stefan E Admitting Unavailable Best, Stefan E Primary Care Unavailable Stefan Best Attending Unavailable Allergies Allergy Classification Reported Allergen(s) Allergy Type Date of Onset Reaction(s) Facility (15 sources) Angiotensin Converting Enzyme (Williams) Inhibitors; Translations: [WILLIAMS Inhibitors] Allergy to drug (finding) 3 Hyperkalemia, [facility] (20 sources) atorvastatin; Translations: [atorvastatin] Drug Allergy 3 Myalgia [facility] (13 sources) Hmg-Coa Reductase Inhibitors (Statins); Translations: [Statins] Allergy to drug (finding) Myalgia [place] [address] DO Work Phone: (5 sources) rosuvastatin; Translations: [rosuvastatin] Drug Allergy Myalgia [place] [address] DO Work Phone: (20 sources) Spironolactone; Translations: [spironolactone] Drug Allergy 3 Other [place] [address] DO Work Phone: (1 source) Iodine (And Iodine Containting Drugs) Drug allergy (disorder) [facility] (1 source) Pravastatin Drug Allergy [facility] (2 sources) Simvastatin Drug Allergy [facility] (1 source) Sulfonamides (Antibiotic) Drug allergy (disorder) [facility] (6 sources) Adhesive Tape Drug allergy [place] Other (11 sources) Pravastatin; Translations: [pravastatin] Drug Allergy Unknown [facility] (12 sources) Angiotensin-conv erting enzyme inhibitor agent Drug Allergy 3 Other [facility] (14 sources) HMG-CoA reductase inhibitor; Translations: [[id number] REDUCTASE INHIBITORS] Drug Allergy 3 Myalgia [facility] Work Phone: (13 sources) Adhesive Tape; Translations: [adhesive tape] Allergy to substance 4 rash [facility] (13 sources) blue dye; Translations: [blue dye] Allergy to substance 4 Nausea [facility] Comment on above: dye used with xray c auses patient to vomit (7 sources) semaglutide; Translations: [semaglutide] Allergy to substance 4 nausea, vomiting [facility] Medications Current Medications Medication Drug Class(es) Dates Sig (Normalized) Sig (Original) 8 hr acetaminophen 650 mg extended release oral tablet (20 sources) Start: 01-12-2024 take 2 tablets by mouth at bedtime Acetaminophen 650 mg tablet extended release Active 1300 MG PO Bedtime January 11, 2024 11:00pm Start: 01-12-2024 take 1300 mg by mout h every twelve hours Acetaminophen Active 1300 MG PO Every 12 hours January 12, 2024 12:00am Start: 08-20-2023 Tylenol 650 mg , Oral, Refills(s) 0 Start Date: 08/20/23 Status: Ordered Start: 07-20-2018 End: 01-12-2024 take 2 tablets by mouth once daily at bedtime Acetaminophen (Tylenol) 325 mg Tablet Discontinued 650 MG PO Daily at bedtime July 20, 2018 12:00am January 12, 2024 3:14pm Start: 07-16-2017 End: 09-11-2017 Acetaminophen (Tylenol Arthr itis Pain) 650 mg Tablet Extended Release Discontinued 1300 MG PO Every evening as needed for Pain July 16, 2017 12:00am September 11, 2017 7:44am take 1 tablet by dayo th every [...] Tablet Active 300 MG PO Daily May 13, 2017 11:00pm ascorbic acid 500 mg oral tablet (20 sources) Vitamin C Start: 03-01-2024 take 1 tablet by mouth once daily Ascorbic Acid (Vitamin C) 500 mg tablet Active 0 .ROUTE .COMPLEX March 01, 2024 11:45am TAKE ONE TABLET BY MOUTH ONCE DAILY Start: 12-05-2023 End: 03-01-2024 take 1 tablet by mouth once daily Ascorbic Acid (Vitamin C) (Vitamin C) 500 mg tablet Discontinued 500 MG PO daily December 04, 2023 11:00pm March 01, 2024 11:45am Start: 09-11-2017 End: 09-09-2023 take 1 capsule by mouth once daily Ascorbic Acid (Vitamin C) (Vitamin C) 500 mg Capsule, Extended Release Discontinued 500 MG PO Daily September 11, 2017 12:00am September 09, 2023 3:26pm Start: 07-16-2017 End: 09-11-2017 take 1 tablet by mouth once daily Ascorbic Acid (Vitamin C) (Vitamin C) 1,000 mg Tablet Discontinued 1000 MG PO Daily July 16, 2017 12:00am September 11, 2017 7:53am Start: 05-14-2017 End: 07-16-2017 take 1 tablet by mouth once daily Ascorbic Acid (Vitamin C) (Vitamin C) 500 mg Tablet Discontinued 500 MG PO Daily May 13, 2017 11:00pm July 16, 2017 8:40am Vitamin C 500 MG Orally Active aspirin 81 mg delayed release oral tablet (20 sources) Platelet Aggregation Inhibitor, Nonsteroidal Anti-inflammatory Drug Start: 05-14-2017 End: 07-29-2025 Aspirin (Beth Low Dose Aspirin) 81 mg Tablet,Delayed Release (Dr/Ec) Active 81 MG PO Daily May 13, 2017 11:00pm take 1 tablet by dayo th every twenty-four hours Aspirin 81 MG 1 tablet Orally Once a day Active Aspirin 81 MG Or al Tablet Delayed Release Quantity: 0 Refills: 0 Ordered: 19-Dec-2016 DO Active carvedilol 25 mg oral tablet (20 sources) alpha-Adrenergic Miquel, beta-Adrenergic Miquel Start: 07-22-2018 End: 07-01-2025 take 1 tablet by mouth twice daily carvedilol (Coreg) 25 mg tablet Indications: Ischemic cardiomyopathy Take 1 tablet (25 mg) by mouth 2 times a day. 180 tablet 3 07/01/2024 07/01/2025 Active Start: 06-23-2017 End: 07-22-2018 take 2 tablets by mouth twice daily Carvedilol (Coreg) 12.5 mg Tablet Discontinued 25 MG PO Twice daily June 23, 2017 12:00am July 22, 2018 12:13pm cephalexin 500 mg oral capsule (1 source) Cephalosporin Antibacterial Start: 02-29-2024 End: 03-04-2024 take 1 capsule by mouth three times daily Keflex 500 mg Cap 500 mg = 1 cap(s), Oral, TID, X 4 day(s), # 12 cap(s), Refills(s) 0, Pharmacy: [facility], 150, cm, 02/26/24 17:34:00 EDT, Height/Length Dosing, 76.4, kg, 02/26/24 17:34:00 EDT, Weight Dosing Start Date: 02/29/24 Stop Date: 03/04/24 Status: Ordered cholecalciferol 0.125 mg oral capsule (20 sources) Vitamin D Start: 05-20-2024 take 1 capsule by mouth every other day Cholecalciferol (Vitamin D3) 125 mcg (5,000 unit) capsule Active 125 MCG PO .every other day May 20, 2024 10:18am Start: 01-12-2024 End: 05-20-2024 take 1 capsule by mouth once daily Cholecalciferol (Vitamin D3) 125 mcg (5,000 unit) capsule Discontinued 125 MCG PO Daily January 11, 2024 11:00pm May 20, 2024 10:18am Start: 2023 take 1 tablet by dayo th every other day at mealtime cholecalciferol (Vitamin D-3) 5,000 Units tablet Take 1 tablet (5,000 Units) by mouth every other day. with food 2023 Active Start: 2023 take 1 tablet by dayo th once daily at mealtime cholecalciferol (Vitamin D-3) 5,000 Units tablet Take 1 tablet (5,000 Units) by mouth once daily. with food 0 2023 Active Start: 02-10-2023 take 1 capsule by mo uth once daily cholecalciferol 1000 intl units oral capsule 25 mcg = 1 cap(s), Oral, Daily, Oral, # 90 cap(s), Refills(s) 1, Pharmacy: [facility], 140.6, cm, 02/10/23 11:29:00 EDT, Height/Length Dosing, 79.2, kg, 02/10/23 11:29:00 EDT, Weight Dosing Start Date: 02/10/23 Status: Ordered Start: 09-11-2017 End: 01-12-2024 take 1 capsule by mouth once daily Cholecalciferol (Vitamin D3) (Vitamin D3) 1,000 unit Capsule Discontinued 1000 UNIT PO Daily September 11, 2017 12:00am January 12, 2024 3:16pm Start: 07-16-2017 End: 09-11-2017 Cholecalciferol (Vitamin D3) (Vitamin D3) 5,000 unit Tablet Discontinued 5000 MG PO Daily July 16, 2017 12:00am September 11, 2017 7:54am Start: 05-14-2017 End: 07-16-2017 take 1 capsule by mouth once daily Cholecalciferol (Vitamin D3) (Vitamin D3) 1,000 unit Capsule Discontinued 1000 UNIT PO Daily 0 June 25, 2017 10:05am July 16, 2017 8:38am clopidogrel 75 mg oral tablet (20 sources) [id number] Platelet Inhibitor Start: 05-14-2017 End: 09-17-2023 take 1 tablet by mouth once daily clopidogrel (Plavix) 75 mg tablet Indications: History of angioplasty , Occlusion and stenosis of right carotid artery TAKE ONE TABLET BY MOUTH ONCE DAILY 90 tablet 3 01/01/2024 Active dimenhyDRINATE (6 sources) Dramamine Active docusate sodium 100 mg oral capsule (20 sources) Start: 01-12-2024 take 1 capsule by mouth at bedtime Docusate Sodium (Colace) 100 mg capsule Active 100 MG PO Bedtime January 12, 2024 3:15pm Start: 08-20-2023 Colace Oral, D aily, Refills(s) 0 Start Date: 08/20/23 Status: Ordered Start: 06-23-2017 End: 01-12-2024 take 1 capsule by mouth twice daily as needed for constipation Docusate Sodium (Colace) 100 mg Capsule Discontinued 100 MG PO Twice daily as needed for Constipation June 23, 2017 12:00am January 12, 2024 3:21pm take 1 capsule by mo [facility] every twenty-four hours Colace 100 MG 1 capsule as needed Orally Once a day Active take 1 tablet by mouth once sayda y Docusate Sodium 100 MG Oral Tablet TAKE 1 TABLET DAILY DIRECTED. Quantity: 0 Refills: 0 Ordered: 19-Dec-2016 DO Active ferrous sulfate 325 mg oral tablet (20 sources) Start: 06-24-2024 take 1 tablet by mouth every other day Ferrous Sulfate (Ferosul) 325 mg (65 mg iron) tablet Active 325 MG PO .Every other day June 24, 2024 12:00am Start: 02-27-2024 take 1 tablet by dayo every other day ferrous sulfate 325 (65 Fe) MG EC tablet Take 1 tablet by mouth every other day. 02/27/2024 Active Start: 01-25-2024 End: 2024 take 1 tablet by mouth every other day Ferrous Sulfate (Iron (Ferrous Sulfate)) 325 mg (65 mg iron) tablet Discontinued 325 MG PO every other day 90 March 03, 2024 1:46pm 2024 7:26am Start: 12-05-2023 End: 01-25-2024 take 1 tablet by mouth three times daily Ferrous Sulfate (Iron (Ferrous Sulfate)) 325 mg (65 mg iron) tablet Discontinued 325 MG PO tid December 04, 2023 11:00pm January 25, 2024 9:20am furosemide 40 mg oral tablet (20 sources) Loop Diuretic Start: 10-11-2021 End: 09-16-2024 take 1 tablet by mouth once daily Furosemide 40 mg tablet Active 40 MG PO Daily January 11, 2024 11:00pm Start: 05-14-2017 End: 01-12-2024 take 1 tablet by mouth once daily as needed for edema Furosemide (Lasix) 20 mg Tablet Discontinued 20 MG PO Daily as needed for Edema May 13, 2017 11:00pm January 12, 2024 3:18pm take 1 tablet by dayo twice daily Furosemide 40 MG Oral Tablet Take 1 tablet twice daily Quantity: 0 Refills: 0 Ordered: 19-Dec-2016 DO Active gabapentin 300 mg oral capsule (20 sources) Anti-epileptic Agent Start: 04-29-2024 End: 08-27-2024 take 1 capsule by mouth twice daily Gabapentin 300 mg capsule Active 0 .ROUTE .COMPLEX 60 August 27, 2024 12:39pm TAKE ONE CAPSULE BY MOUTH TWICE A DAY Start: 02-02-2024 End: 03-22-2024 take 1 capsule by mouth twice daily Gabapentin 300 mg capsule Discontinued 0 .ROUTE .COMPLEX 60 February 02, 2024 8:04am March 22, 2024 1:28pm TAKE ONE CAPSULE BY MOUTH TWICE A DAY Start: 07-03-2023 End: 04-29-2024 take 1 capsule by mouth twice daily Gabapentin 300 mg capsule Discontinued 300 MG PO Twice daily March 22, 2024 1:26pm April 29, 2024 7:27am Start: 02-05-2023 gabapentin 300 mg Cap Oral, Refills(s) 0 Start Date: 02/05/23 Status: Ordered Start: 06-15-2021 take 1 capsule by mo [facility] twice daily Gabapentin 300 MG Oral Capsule TAKE ONE CAPSULE BY MOUTH TWICE A DAY Quantity: 60 Refills: 0 Ordered: 12-Dec-2021 DO Start : 15-Jun-2021 Active Start: 09-11-2017 End: 02-02-2024 take 3 capsules by mouth twice daily Gabapentin 100 mg Capsule Discontinued 300 MG PO Twice daily September 11, 2017 12:00am February 02, 2024 8:04am Start: 09-11-2017 End: 02-02-2024 take 300 mg by mouth twice daily Gabapentin Discontinu ed 300 MG PO Twice daily September 11, 2017 1:00am February 02, 2024 9:04am Start: 06-25-2017 End: 09-11-2017 take 1 capsule by mouth twice daily Gabapentin 300 mg capsule Discontinued 300 MG PO Twice daily 60 June 25, 2017 12:00am July 19, 2018 12:00am September 11, 2017 7:48am Start: 05-14-2017 End: 06-25-2017 take 2 capsules by mouth twice daily Gabapentin 100 mg Capsule Discontinued 200 MG PO Twice daily May 13, 2017 11:00pm June 25, 2017 10:51am Start: 05-14-2017 End: 06-25-2017 take 3 capsules by mouth once daily Gabapentin 100 mg Capsule Discontinued 300 MG PO Daily May 13, 2017 11:00pm June 25, 2017 10:51am Start: 05-14-2017 End: 06-25-2017 take 200 mg by mouth twice daily Gabapentin Discontinu ed 200 MG PO Twice daily May 14, 2017 12:00am June 25, 2017 11:51am Start: 05-14-2017 End: 06-25-2017 take 300 mg by mouth once daily Gabapentin Discontinue d 300 MG PO Daily May 14, 2017 12:00am June 25, 2017 11:51am take [address] [facility] every twenty-four hours Gabapentin 300 MG 1 capsule before bedtime Orally Once a day Active Gabapentin 100 M G TABS TAKE 1 TABLET 3 TIMES DAILY. Quantity: 0 Refills: 0 Ordered: 19-Dec-2016 DO Active insulin aspart 100 units/mL injectable solution (1 source) Start: 02-05-2023 insulin aspart 100 units/mL injectable solution Subcutaneous, Refills(s) 0 Start Date: 02/05/23 Status: Ordered Insulin Aspart U-100 (Novolog Flexpen U-100 Insulin) 100 unit/mL (3 mL) insulin pen (2 sources) Start: 08-03-2024 Insulin Aspart U-100 (Novolog Flexpen U-100 Insulin) 100 unit/mL (3 mL) insulin pen Active 0 UNIT SUBCUT As Directed as needed August 03, 2024 11:07am Please contact the information source for Protocol details. insulin aspart, human 100 unt/ml injectable solution (20 sources) Insulin Analog Start: 09-03-2023 insulin aspart 100 units/mL injectable solution See Instructions, 20 unit(s) subcutaneous as needed. follow sliding scale, # 15 mL, Refills(s) 3, Pharmacy: [facility], 143, cm, 08/20/23 16:15:00 EST, Height/Length Dosing, 75.7, kg, 08/20/23 16:15:00 EST, Weight Dosing Start Date: 09/03/23 Status: Ordered Start: 02-11-2023 NovoLOG Flexpe n U-100 Insulin 100 unit/mL (3 mL) pen INJECT 20 UNITS VIA SUBCUTANEOUS ROUTE NEEDED PER SLIDING SCALE 02/11/2023 Active Start: 05-14-2017 End: 07-16-2017 Insulin Aspart U-100 (Novolo g Flexpen U-100 Insulin) 100 unit/mL Insulin Pen Discontinued 0 UNIT SUBCUT As Directed as needed for Hyperglycemia 0 June 25, 2017 10:05am July 16, 2017 8:40am Please contact the information source for Protocol details. NovoLOG Active 3 ml insulin degludec 100 unt/ml pen injector (2 sources) Insulin Analog Start: 08-21-2023 Tresiba FlexTo uch 100 units/mL subcutaneous solution 20 unit(s), SubCutaneous, As Directed, using sliding scale as needed, # 15 mL, Refills(s) 1, Pharmacy: [facility], 143, cm, 08/20/23 16:15:00 EST, Height/Length Dosing, 75.7, kg, 08/20/23 16:15:00 EST, Weight Dosing Start Date: 08/21/23 Status: Ordered 3 ml insulin glargine 100 unt/ml pen injector (20 sources) Insulin Analog Start: 07-01-2024 End: 07-02-2024 Insulin Glargine (Basaglar Kwikpen U-100 Insulin) 100 unit/mL (3 mL) insulin pen Active 60 UNIT SUBCUT Every evening 54 90 July 02, 2024 2:24pm Start: 10-08-2023 Basaglar KwikP en 100 units/mL subcutaneous solution 50 unit(s), SubCutaneous, Daily, # 45 mL, Refills(s) 2, Pharmacy: [facility], 143, cm, 08/20/23 16:15:00 EST, Height/Length Dosing, 75.7, kg, 08/20/23 16:15:00 EST, Weight Dosing Start Date: 10/08/23 Status: Ordered Start: 07-03-2023 End: 07-01-2024 Insulin Glargine (Basaglar K wikpen U-100 Insulin) 100 unit/mL (3 mL) insulin pen Discontinued 50 UNIT SUBCUT Every evening January 12, 2024 3:15pm July 01, 2024 11:29am Start: 02-10-2023 Basaglar KwikP en 100 units/mL subcutaneous solution 50 unit(s), SubCutaneous, Daily, # 15 mL, Refills(s) 2, Pharmacy: [place] [id number], 140.6, cm, 02/10/23 11:29:00 EDT, Height/Length Dosing, 79.2, kg, 02/10/23 11:29:00 EDT, Weight Dosing Start Date: 02/10/23 Status: Ordered Start: 02-07-2023 Basaglar KwikP en 100 units/mL subcutaneous solution See Instructions, 50 units daily, # 15 mL, Refills(s) 0, Pharmacy: [place] [id number] Start Date: 02/07/23 Status: Ordered Start: 01-31-2021 Basaglar KwikP en 100 UNIT/ML Subcutaneous Solution Pen-injector INJECT 50 UNITS AT BEDTIME Quantity: 15 Refills: 0 Ordered: 12-Dec-2021 DO Start : 31-Jan-2021 Active Start: 09-11-2017 End: 01-12-2024 Insulin Glargine (Basaglar K wikpen U-100 Insulin) 100 unit/mL (3 mL) Insulin Pen Discontinued 42 UNIT SUBCUT Every evening September 11, 2017 12:00am January 12, 2024 3:21pm Start: 05-14-2017 End: 09-11-2017 inject 40 [IU] by subcutaneous injection once daily at bedtime Insulin Glargine (Lantus U-100 Insulin) 100 unit/mL solution Discontinued 40 UNIT SUBCUT Daily at bedtime July 16, 2017 8:40am September 11, 2017 8:05am Devinaglhilda KwikPen 100 UNIT/ML Subcutaneous Active lisinopril 5 mg oral tablet (20 sources) Angiotensin Converting Enzyme Inhibitor Start: 08-03-2024 take 1 tablet by mouth in the morning lisinopril 5 mg tablet Take 1 tablet (5 mg) by mouth early in the morning.. 08/03/2024 Active Start: 05-14-2017 End: 07-20-2018 take 1 tablet by mouth once daily Lisinopril 2.5 mg Tablet Discontinued 2.5 MG PO Daily May 13, 2017 11:00pm July 20, 2018 6:43am take 1 tablet by dayo th every twenty-four hours Lisinopril 5 MG 1 tablet Orally Once a day Active 24 hr oxybutynin chloride 15 mg extended release oral tablet (20 sources) Cholinergic Muscarinic Antagonist Start: 07-27-2024 take 1 tablet by mouth once daily Oxybutynin Chloride 15 mg tablet extended release 24hr Active 0 .ROUTE .COMPLEX July 27, 2024 10:36am TAKE ONE TABLET BY MOUTH ONCE DAILY Start: 01-12-2024 End: 07-27-2024 take 1 tablet by mouth once daily Oxybutynin Chloride 15 mg tablet extended release 24hr Discontinued 15 MG PO Daily March 05, 2024 1:06pm April 02, 2024 7:20am Start: 01-01-2024 End: 01-12-2024 take 1 tablet by mouth once daily Oxybutynin Chloride Discontinued 0 .ROUTE .COMPLEX January 01, 2024 8:42am January 12, 2024 4:21pm TAKE ONE TABLET BY MOUTH DAILY Start: 12-11-2023 End: 01-12-2024 take 1 tablet by mouth once daily Oxybutynin Chloride 15 mg tablet extended release 24hr Discontinued 0 .ROUTE .COMPLEX January 01, 2024 7:42am January 12, 2024 3:21pm TAKE ONE TABLET BY MOUTH DAILY Start: 12-11-2023 End: 01-01-2024 take 1 tablet by mouth once daily Oxybutynin Chloride 15 mg tablet extended release 24hr Discontinued 15 MG PO Daily December 10, 2023 11:00pm January 01, 2024 7:43am Start: 09-03-2023 End: 12-11-2023 take 1 tablet by mouth once daily Oxybutynin Chloride 10 mg tablet extended release 24hr Discontinued 10 MG PO Daily November 26, 2023 11:00pm December 11, 2023 3:20pm Start: 07-03-2023 End: 11-27-2023 take 1 tablet by mouth once daily Oxybutynin Chloride 5 mg tablet Discontinued 5 MG PO Daily September 12, 2023 12:00am November 27, 2023 1:32pm Start: 02-10-2023 take 1 tablet by dayo th once daily oxybutynin 10 mg ER Tab 10 mg = 1 tab(s), Oral, Daily, # 90 tab(s), Refills(s) 0, Pharmacy: [facility], 140.6, cm, 02/10/23 11:29:00 EDT, Height/Length [...] 1 tablet Orally Twice a day Active rosuvastatin calcium 5 mg oral tablet (20 sources) HMG-CoA Reductase Inhibitor Start: 06-23-2017 End: 09-16-2024 take 1 tablet by mouth once daily at bedtime Rosuvastatin (Crestor) 5 mg Tablet Active 5 MG PO Daily at bedtime June 23, 2017 12:00am take 1 tablet by dayo th every twenty-four hours Rosuvastatin Calcium 20 MG 1 tablet Oral ly Once a day Active Vitamin C 500 MG (5 sources) Vitamin C 500 MG Orally Active Vitamin C 500 mg oral tablet, chewable (1 source) Start: 02-27-2024 take 1 tablet by mouth once daily Vitamin C 500 mg oral tablet, chewable 500 mg = 1 tab(s), Chewed, Daily, Refills(s) 0 Start Date: 02/27/24 Status: Ordered Vitamin D Oral (1 source) Start: 02-27-2024 Vitamin D Oral 50,000 International_Unit, Oral, Daily, Refills(s) 0 Start Date: 02/27/24 Status: Ordered Vitamin D-3 5000 UNIT (6 sources) take 1 tablet by mouth once daily Vitamin D-3 5000 UNIT 1 [...] DO Active atorvastatin 80 mg oral tablet (20 sources) HMG-CoA Reductase Inhibitor Start: 05-14-2017 End: 06-23-2017 take 1 tablet by mouth once daily Atorvastatin 80 mg Tablet Discontinued 80 MG PO Daily May 13, 2017 11:00pm June 23, 2017 3:33pm ciprofloxacin 500 mg oral tablet (16 sources) Quinolone Antimicrobial Start: 2024 End: 06-24-2024 take 1 tablet by mouth every two hours Ciprofloxacin Hcl (Cipro) 500 mg tablet Discontinued 500 MG PO Q12H 2024 12:00am June 24, 2024 10:58am administer dose at least 2 hrs before/6 hrs after dairy products, calcium, zinc, and/or iron-containing products Start: 05-25-2024 End: 2024 take 1 tablet by mouth once daily Ciprofloxacin Hcl 250 mg tablet Discontinued 250 MG PO Daily May 25, 2024 12:24pm 2024 7:25am Start: 04-07-2024 End: 05-20-2024 take 1 tablet by mouth once daily Ciprofloxacin Hcl 250 mg tablet Discontinued 250 MG PO Daily April 06, 2024 11:00pm May 20, 2024 9:57am Insulin Aspart U-100 (Novolo g Flexpen U-100 Insulin) 100 unit/mL insulin pen (12 sources) Start: 07-16-2017 End: 01-21-2025 Insulin Aspart U-100 (Novolo g Flexpen U-100 Insulin) 100 unit/mL insulin pen Discontinued 0 UNIT SUBCUT As Directed July 16, 2017 8:40am August 03, 2024 11:08am Please contact the information source for Protocol details. Start: 07-16-2017 Insulin Aspart U-100 (Novolog Flexpen U-100 Insulin) 100 unit/mL insulin pen Active 0 UNIT SUBCUT As Directed July 16, 2017 8:40am Please contact the information source for Protocol details. Start: 07-16-2017 Insulin Aspart U-100 (Novolog Flexpen U-100 Insulin) 100 unit/mL insulin pen Active 0 UNIT SUBCUT As Directed July 16, 2017 9:40am Insulin Lispro (5 sources) Insulin Analog Start: 02-29-2024 End: 02-29-2024 Insulin Lispro Sliding Scale 0-10 Unit(s), Injection-Insulin, SubCutaneous, Start date 02/29/24 11:30:00 AM EDT Start Date: 02/29/24 Stop Date: 02/29/24 Status: Completed Start: 02-29-2024 End: 02-29-2024 Insulin Lispro Sliding Scale 0-10 Unit(s), Injection-Insulin, SubCutaneous, Start date 02/29/24 7:30:00 AM EDT Start Date: 02/29/24 Stop Date: 02/29/24 Status: Completed Start: 02-28-2024 End: 02-28-2024 Insulin Lispro Sliding Scale 0-10 Unit(s), Injection-Insulin, SubCutaneous, Start date 02/28/24 4:30:00 PM EDT Start Date: 02/28/24 Stop Date: 02/28/24 Status: Completed Start: 08-20-2023 inject 20 [IU] by reardon bcutaneous injection once as needed HumaLOG 100 units/mL injectable solution 20 unit(s), SubCutaneous, As Directed, as needed per sliding scale, # 15 mL, Refills(s) 2, Pharmacy: [id number], 143, cm, 08/20/23 16:15:00 EST, Height/Length Dosing, 75.7, kg, 08/20/23 16:15:00 EST, Weight Dosing Start Date: 08/20/23 Status: Ordered losartan potassium 25 mg oral tablet (17 sources) Angiotensin 2 Receptor Miquel Start: 07-20-2018 End: 09-09-2023 take 1 tablet by mouth once daily at bedtime Losartan 25 mg tablet Discontinued 25 MG PO Daily at bedtime July 20, 2018 12:00am September 09, 2023 3:26pm metoprolol tartrate 25 mg oral tablet (20 sources) beta-Adrenergic Miquel Start: 05-14-2017 End: 06-23-2017 take 1 tablet by mouth twice daily Metoprolol Tartrate 25 mg Tablet Discontinued 25 MG PO Twice daily May 13, 2017 11:00pm June 23, 2017 3:33pm End: 09-17-2023 take 1 tablet by mouth every twelve hours metoprolol tartrate (Lopressor) 25 mg tablet 1 tablet (25 mg) every 12 hours. 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 Quantity: 0 Refills: 0 Ordered: 19-Dec-2016 DO Active nitroglycerin 0.4 mg sublingual tablet (17 sources) Nitrate Vasodilator Start: End: Nitroglycerin (Nitrostat) 0.4 mg Tablet, Sublingual Discontinued 0.4 MG SUBLINGUAL Q5M as needed for Chest Pain June 23, 2017 12:00am September 09, 2023 3:27pm ondansetron 4 mg oral tablet (14 sources) Serotonin-3 Receptor Antagonist Start: End: take 1 tablet by mouth every eight hours as needed for nausea Ondansetron Hcl 4 mg tablet Discontinued 4 MG PO Q8H as needed for Nausea December 04, 2023 11:00pm January 12, 2024 3:21pm potassium chloride 10 meq extended release oral capsule (20 sources) Start: 024 End: take 1 capsule by mouth once daily Potassium Chloride 10 mEq capsule, extended release Discontinued 10 MEQ PO Daily September 12, 2023 12:00am August 03, 2024 11:31am Start: 09-03-2023 take 1 tablet by dayo th once daily potassium chloride 10 mEq ER Tab 10 mEq = 1 tab(s), Oral, Daily, Oral, # 30 tab(s), Refills(s) 5, Pharmacy: [facility], 143, cm, 08/20/23 16:15:00 EST, Height/Length Dosing, 75.7, kg, 08/20/23 16:15:00 EST, Weight Dosing Start Date: 09/03/23 Status: Ordered Start: 07-03-2023 End: 08-11-2024 potassium chloride CR 10 mEq ER tablet 1 tablet (10 mEq) once daily. 07/03/2023 08/11/2024 Discontinued (Therapy completed) Start: 02-05-2023 potassium chlo ride 10 mEq ER Tab Oral, Refills(s) 0 Start Date: 02/05/23 Status: Ordered Start: 12-12-2021 Potassium Chlo ride ER 10 MEQ Oral Tablet Extended Release Quantity: 30 Refills: 0 Ordered: 12-Dec-2021 DO Start : 12-Dec-2021 Active Start: 05-14-2017 End: 06-25-2017 take 1 tablet by mouth once daily Potassium Chloride 10 mEq Tablet Extended Release Discontinued 10 MEQ PO Daily May 13, 2017 11:00pm June 25, 2017 10:05am take 1 tablet by dayo th once daily Potassium Chloride ER 20 MEQ Oral Tablet Extended Release Take 1 tablet daily Quantity: 0 Refills: 0 Ordered: 19-Dec-2016 DO Active regadenoson (Lexiscan) injection 0.4 mg (2 sources) Start: 10-14-2023 End: 10-14-2023 regadenoson (Lexiscan) injection 0.4 mg spironolactone 25 mg oral tablet (20 sources) Aldosterone Antagonist Start: 06-23-2017 End: 09-09-2023 take 1 tablet by mouth once daily in the morning Spironolactone (Aldactone) 25 mg Tablet Discontinued 25 MG PO Every morning June 23, 2017 12:00am September 09, 2023 3:27pm sulfamethoxazole 800 mg / trimethoprim 160 mg oral tablet (15 sources) Dihydrofolate Reductase Inhibitor Antibacterial, Sulfonamide Antimicrobial Start: 10-23-2023 End: 11-27-2023 take 1 tablet by mouth twice daily Sulfamethoxazole-Tr imethoprim 800-160 mg tablet Discontinued 1 TAB PO Twice daily October 22, 2023 11:00pm November 27, 2023 1:06pm Tc-99m tetrofosmin (Myoview) injection 10 millicurie (2 sources) Start: 10-14-2023 End: 10-14-2023 Tc-99m tetrofosmin (Myoview) injection 10 millicurie Tc-99m tetrofosmin (Myoview) injection 30 millicurie (2 sources) Start: 10-14-2023 End: 10-14-2023 Tc-99m tetrofosmin (Myoview) injection 30 millicurie traMADol hydrochloride 50 mg oral tablet (17 sources) Opioid Agonist Start: 07-24-2018 End: 07-31-2018 take 1 tablet by mouth every four to six hours as needed for pain Tramadol 50 mg tablet Discontinued 50 MG PO EVERY 4-6 HOURS as needed for pain 20 July 24, 2018 12:00am July 30, 2018 12:00am July 31, 2018 12:02am Vitamin B Complex (17 sources) Start: 05-14-2017 End: 07-20-2018 take 1 tablet by mouth once daily Vitamin B Complex Discontinued 1 TAB PO Daily May 14, 2017 12:00am July 20, 2018 7:44am Vitamin B Comple x - Orally Active Vitamin B Complex Tablet (6 sources) Start: 05-14-2017 End: 07-20-2018 take 1 tablet by mouth once daily Vitamin B Complex Tablet Discontinued 1 TAB PO Daily May 13, 2017 11:00pm July 20, 2018 6:44am Problems Active Problems Problem Classification Problem Date Documented Date Episodic/Chronic Abdominal pain (2 sources) Flank pain 03-05-2023 Episodic Aortic and peripheral arterial embolism or thrombosis (6 sources) Finding of aorta; Translations: [Embolism and thrombosis of unspecified parts of aorta] Chronic Chronic kidney disease (20 sources) Chronic kidney disease, unspecified; Translations: [Chronic kidney disease, stage 4 (severe)] Onset: 2 02-05-2023 Chronic Comment on above: added per 05/20/2023 query response. Chronic kidney disease (2 sources) Chronic kidney disease; Translations: [Chronic kidney disease, stage 3b (Multi)] Onset: 5 Chronic ulcer of skin (1 source) Pressure ulcer of sacral region; Translations: [Pressure ulcer of sacral region, stage 1] Onset: 4 Chronic Congestive heart failure; nonhypertensive (6 sources) Heart failure; Translations: [Heart failure, unspecified] 07-01-2024 Chronic Congestive heart failure; nonhypertensive (1 source) Congestive heart failure; nonhypertensive Onset: 8 Coronary atherosclerosis and other heart disease (20 sources) Chronic ischemic heart disease, unspecified; Translations: [Atherosclerotic heart disease of seminole coronary artery without angina pectoris] Onset: 8 Resolved: 5 09-17-2023 Chronic Deficiency and other anemia (1 source) 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c kidney disease; Translations: [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c kidney disease] Onset: 4 Chronic Deficiency and other anemia (14 sources) Anemia; Translations: [Anemia, unspecified] 12-05-2023 Episodic Deficiency and other anemia (4 sources) Anemia, unspecified; Translations: [Anemia, unspecified] 12-11-2023 Episodic Diabetes mellitus with complications (20 sources) 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; Translations: [Type 1 diabetes mellitus with diabetic chronic kidney disease] Onset: 2 Chronic Diabetes mellitus without complication (20 sources) Type 2 diabetes mellitus; Translations: [Diabetes mellitus without mention of complication, type II or unspecified type, not stated as uncontrolled] Onset: 3 02-05-2023 Chronic Comment on above: linked DM with HLD p er OP CDI policy. Diabetes mellitus without complication (1 source) Diabetes mellitus without complication Onset: 8 Disorders of lipid metabolism (20 sources) Dyslipidemia; Translations: [Other and unspecified hyperlipidemia] Onset: 3 Resolved: 3 02-05-2023 Chronic Essential hypertension (20 sources) Hypertensive disorder; Translations: [Unspecified essential hypertension] Onset: 3 09-17-2023 Chronic Essential hypertension (1 source) Essential hypertension Onset: 8 Genitourinary symptoms and ill-defined conditions (3 sources) Urinary incontinence 02-10-2023 Chronic Gout and other crystal arthropathies (20 sources) Gout; Translations: [Gout, unspecified] 02-05-2023 Chronic Heart valve disorders (20 sources) Mitral valve regurgitation; Translations: [Mitral valve disorders] Onset: 3 07-08-2023 Chronic Hypertension with complications and secondary hypertension (20 sources) Chronic kidney disease due to hypertension; Translations: [Hypertensive chronic kidney disease with stage 1 through stage 4 chronic kidney disease, or unspecified chronic kidney disease] Onset: 4 01-12-2024 Chronic Malaise and fatigue (1 source) Asthenia; Translations: [Weakness] Onset: 4 Episodic Nutritional deficiencies (3 sources) Vitamin D deficiency 02-05-2023 Chronic Occlusion or stenosis of precerebral arteries (20 sources) Right carotid artery occlusion; Translations: [Occlusion and stenosis of carotid artery without mention of cerebral infarction] Onset: 3 09-17-2023 Chronic Osteoarthritis (20 sources) Osteoarthritis of left hip joint; Translations: [Unilateral primary osteoarthritis, left hip] Onset: 4 Chronic Osteoporosis (16 sources) Osteoporosis; Translations: [Age-related osteoporosis without current pathological fracture] Onset: 4 11-24-2023 Chronic Other aftercare (16 sources) Long-term current use of drug therapy; Translations: [Other intermediate teacher (current) drug therapy] Onset: 4 11-24-2023 Episodic Other circulatory disease (20 sources) Carotid bruit; Translations: [Other symptoms involving cardiovascular system] Onset: 3 07-08-2023 Episodic Other circulatory disease (1 source) H/O: heart failure; Translations: [Personal history of other diseases of the circulatory system] 01-23-2024 Episodic Other circulatory disease (2 sources) Other specified symptoms and signs involving the circulatory and respiratory systems; Translations: [Other specified symptoms and signs involving the circulatory and respiratory systems] Onset: 5 Episodic Other diseases of bladder and urethra (15 sources) Overactive bladder; Translations: [Overactive bladder] 11-27-2023 Chronic Other diseases of bladder and urethra (9 sources) Overactive bladder; Translations: [Hypertonicity of bladder] 11-27-2023 Chronic Other diseases of kidney and ureters (13 sources) Secondary hyperparathyroidism; Translations: [Secondary hyperparathyroidism of renal origin] 01-12-2024 Chronic Other diseases of kidney and ureters (16 sources) Secondary hyperparathyroidism of renal origin; Translations: [Secondary hyperparathyroidism (of renal origin)] Onset: 4 01-12-2024 Chronic Other diseases of kidney and ureters (4 sources) Hydronephrosis; Translations: [Unspecified hydronephrosis] Onset: 4 01-22-2024 Episodic Other diseases of kidney and ureters (12 sources) Hydroureter; Translations: [Hydroureter] 01-22-2024 Episodic Other diseases of kidney and ureters (12 sources) Bilateral hydronephrosis ; Translations: [Unspecified hydronephrosis] 01-22-2024 Episodic Other diseases of kidney and ureters (6 sources) Hydroureter; Translations: [Hydroureter] 01-25-2024 Episodic Other diseases of kidney and ureters (3 sources) Retroperitoneal fibrosis; Translations: [Retroperitoneal fibrosis] Onset: 4 Episodic Other endocrine disorders (1 source) Hypoglycemia; Translations: [Hypoglycemia, unspecified] Onset: 4 Chronic Other injuries and conditions due to external causes (3 sources) 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; Translations: [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, initial encounter] Onset: 4 Episodic Other nervous system disorders (20 sources) Chronic pain; Translations: [Other chronic pain] 09-29-2023 Chronic Other nervous system disorders (1 source) Other chronic pain Chronic Other nervous system disorders (1 source) Metabolic encephalopathy; Translations: [Metabolic encephalopathy] Onset: 4 Chronic Other non-traumatic joint disorders (1 source) Pain in left hip Episodic Other non-traumatic joint disorders (16 sources) Hip pain; Translations: [Pain in left hip] 09-29-2023 Episodic Other nutritional; endocrine; and metabolic disorders (16 sources) Body mass index 30+ - obesity; Translations: [Body Mass Index 35.0-35.9, adult] Onset: 4 09-17-2023 Chronic Other nutritional; endocrine; and metabolic disorders (2 sources) Obese class II; Translations: [Obesity, unspecified] Chronic Other nutritional; endocrine; and metabolic disorders (8 sources) Obesity; Translations: [Obesity, unspecified] Chronic Other nutritional; endocrine; and metabolic disorders (2 sources) Severe obesity 05-28-2023 Chronic Comment on above: added per 05/20/2023 query response. Other nutritional; endocrine; and metabolic disorders (1 source) Morbid obesity; Translations: [Morbid (severe) obesity due to excess calories] Onset: 4 Chronic Other nutritional; endocrine; and metabolic disorders (2 sources) Body mass index (BMI) 33.0-33.9, adult; Translations: [Body mass index (BMI) 33.0-33.9, adult] Onset: 5 Chronic Other nutritional; endocrine; and metabolic disorders [...] - edema - symptom; Translations: [Edema] Episodic Septicemia (except in labor) (16 sources) Sepsis; Translations: [Sepsis, unspecified organism] Onset: 4 Episodic Spondylosis; intervertebral disc disorders; other back problems (11 sources) Spondylosis without myelopathy or radiculopathy, lumbosacral region; Translations: [Other intervertebral disc degeneration, lumbar region] Onset: 2 Chronic Spondylosis; intervertebral disc disorders; other back problems (20 sources) Sciatica, unspecified side; Translations: [Sciatica, left [...] Unclassified (2 sources) 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 added per OP CDI policy. Past or Other Problems Problem Classification Problem Date Documented Date Episodic/Chronic Acute and unspecified renal failure (20 sources) Acute renal failure syndrome; Translations: [Acute kidney failure, unspecified] Onset: 4 01-22-2024 Episodic Conditions associated with dizziness or vertigo (20 sources) Dizziness; Translations: [Dizziness and giddiness] Onset: 3 07-08-2023 Episodic Coronary atherosclerosis and other heart disease (11 sources) Presence of aortocoronary bypass graft; Translations: [Aortocoronary bypass status] Onset: 3 01-25-2024 Episodic Fluid and electrolyte disorders (20 sources) Hyperkalemia; Translations: [Hyperpotassemia] Onset: 3 07-08-2023 Episodic Genitourinary symptoms and ill-defined conditions (20 sources) Urinary tract obstruction; Translations: [Obstructive and reflux uropathy, unspecified] Onset: 4 01-22-2024 Episodic Other aftercare (3 sources) 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; Translations: [retirement (current) use of insulin (Multi)] Onset: 3 Episodic Other aftercare (1 source) Other senior living (current) drug therapy; Translations: [Other intermediate teacher (current) drug therapy] Onset: 4 Episodic Other circulatory disease (20 sources) History of angioplasty; Translations: [Other postprocedural status] Onset: 3 Resolved: 5 09-17-2023 Episodic Other circulatory disease (2 sources) Personal history of other diseases of the circulatory system; Translations: [Personal history of other diseases of circulatory system] Onset: 4 01-25-2024 Episodic Other circulatory disease (2 sources) Peripheral vascular angioplasty status; Translations: [Peripheral vascular angioplasty status] Onset: 3 Episodic Other connective tissue disease (20 sources) Pain in lower limb; Translations: [Pain in limb] Onset: 3 07-08-2023 Episodic Other diseases of kidney and ureters (8 sources) Unspecified hydronephrosis; Translations: [Hydronephrosis] Onset: 4 01-25-2024 Episodic Other diseases of kidney and ureters (1 source) Hydronephrosis with ureteral stricture, not elsewhere classified; Translations: [Hydronephrosis with ureteral stricture, not elsewhere classified] Onset: 4 Episodic Other lower respiratory disease (20 sources) [...] Resolved: 4 09-17-2023 Episodic Residual codes; unclassified (18 sources) Edema; Translations: [Edema] Onset: 3 07-08-2023 Episodic Screening and history of mental health and substance abuse codes (20 sources) Ex-smoker; Translations: [Personal history of tobacco use] Onset: 4 09-17-2023 Episodic Comment on above: Quit 25+ years ago; Unclassified (1 source) Other low back pain M54.59 Unclassified (12 sources) Onset: 4 Resolved: 5 09-17-2023 Urinary tract infections (20 sources) Urinary tract infectious disease; Translations: [Urinary tract infection, site not specified] Onset: 4 09-10-2023 Episodic Results Test Name Value Interpretation Reference Range Facil ity Appearance of UrineOrdered B y: Leroy Ashby on 07-15-2024 Appearance (U) Urine appearance Abnormal Clear [facility] Bacteria [Presence] in Urine by AutomatedOrdered By: Leroy Ashby on 07-15-2024 Bacteria Auto Ql (U) Bacteria [Presence] in Urine by Automated High None Seen [facility] Bilirubin Test strip Ql (U)O rdered By: Leroy Ashby on 07-15-2024 Bilirubin Ql (U) Bilirubin.total [Presence] in Urine by Test strip Negative [facility] Color Auto (U)Ordered By: Ab carl Ashby on 07-15-2024 Color (U) Color of Urine by Auto Yellow [facility] Creatinine [Mass/volume] in UrineOrdered By: Leroy Ashby on 07-15-2024 Creatinine (U) [Mass/Vol] Creatinine [Mass/volume] in Urine [facility] Comment on above: No reference range e stablished Dipstick and Microscopicon 0 07-15-2024 Appearance (U) Cloudy Critically abnormal Clear [facility] Comment on above: Order Comment: add o n [id number] Performed By: #### H S TROP, CKMB, CK #### [facility] [address] Bacteria,Urine 2+ High None Seen [facility] Comment on above: Order Comment: add o n [id number] Performed By: #### H S TROP, CKMB, CK #### [address] Bilirubin,Urine Negative Normal Negative [facility] Comment on above: Order Comment: add o n [id number] Performed By: #### H S TROP, CKMB, CK #### [address] Color (U) Colorless Normal Yellow [facility] Comment on above: Order Comment: add o n [id number] Performed By: #### H S TROP, CKMB, CK #### [address] Glucose Ql (U) Normal Normal Normal [facility] Comment on above: Order Comment: add o n [id number] Performed By: #### H S TROP, CKMB, CK #### [address] Hyaline Casts,Urine 0 [LPF] Normal 0-8 [facility] Comment on above: Order Comment: add o n [id number] Performed By: #### H S TROP, CKMB, CK #### [address] Ketones Ql (U) Negative Normal Negative [facility] Comment on above: Order Comment: add o n [id number] Performed By: #### H S TROP, CKMB, CK #### [address] Leukocyte esterase Test strip Ql (U) 4+ High Negative [facility] Comment on above: Order Comment: add o n [id number] Performed By: #### H S TROP, CKMB, CK #### [place] [address] [place] Mucus,Urine Rare Normal [facility] Comment on above: Order Comment: add o n [id number] Result Comment: PERF ORMED BY: [place] [address] PATHOLOGIST PACK PULLER RADHA DURAN M.D. Performed By: #### H S TROP, CKMB, CK #### [place] [address] [place] Nitrite,Urine Negative Normal Negative [facility] Comment on above: Order Comment: add o n [id number] Performed By: #### H S TROP, CKMB, CK #### [address] Occult Blood,Urine 1+ High Negative [facility] Comment on above: Order Comment: add o n [id number] Performed By: #### H S TROP, CKMB, CK #### [address] pH (U) 6.5 [pH] Normal 5.0-9.0 [facility] Comment on above: Order Comment: add o n [id number] Performed By: #### H S TROP, CKMB, CK #### [address] Protein (U) [Mass/Vol] 50 mg/dL High Negative [facility] Comment on above: Order Comment: add o n [id number] Performed By: #### H S TROP, CKMB, CK #### [address] RBC,Urine 5 [HPF] High 0-4 [facility] Comment on above: Order Comment: add o n [id number] Performed By: #### H S TROP, CKMB, CK #### [address] Specificy [place],Urine 1.009 Normal 1.001-1.030 [facility] Comment on above: Order Comment: add o n [id number] Performed By: #### H S TROP, CKMB, CK #### [address] Squamous Epithelial Cell,Urine 3 [HPF] High 0-2 [facility] Comment on above: Order Comment: add o n [id number] Performed By: #### H S TROP, CKMB, CK #### [address] Urobilinogen,Urine Normal Normal Normal [facility] Comment on above: Order Comment: add o n [id number] Performed By: #### H S TROP, CKMB, CK #### [facility] [address] [place] [address] [place] WBC CLUMP, Urine Many High None Seen [facility] Comment on above: Order Comment: add o n [id number] Performed By: #### H S TROP, CKMB, CK #### [facility] [address] [place] [address] [place] WBC,Urine Innumerable High 0-4 [facility] Comment on above: Order Comment: add o n [id number] Performed By: #### H S TROP, CKMB, CK #### [facility] [address] Epithelial cells.squamous [# /area] in Urine sediment by Automated countOrdered By: Leroy Ashby on 07-15-2024 Epithelial cells.squamous Auto (Urine sed) [#/Area] Epithelial cells.squamous [#/area] in Urine sediment by Automated count High 0-2 [facility] Erythrocytes [#/area] in Uri ne sediment by Automated countOrdered By: Leroy Ashby on 07-15-2024 RBC Auto (Urine sed) [#/Area] Erythrocytes [#/area] in Urine sediment by Automated count High 0-4 [facility] Glucose [Mass/volume] in Uri ne by Test stripOrdered By: Leroy Ashby on 07-15-2024 Glucose Test strip (U) [Mass/Vol] Glucose [Mass/volume] in Urine by Test strip Normal [facility] Hemoglobin Test strip Ql (U) Ordered By: Leroy Ashby on 07-15-2024 Hemoglobin Ql (U) Hemoglobin [Presence] in Urine by Test strip High Negative [facility] Hyaline casts [#/area] in Ur ine sediment by Automated countOrdered By: Leroy Ashby on 07-15-2024 Hyaline casts Auto (Urine sed) [#/Area] Hyaline casts [#/area] in Urine sediment by Automated count 0-8 [facility] Ketones Test strip Ql (U)Ord ered By: Leroy Ashby on 07-15-2024 Ketones Ql (U) Ketones [Presence] in Urine by Test strip Negative [facility] Leukocyte clumps [Presence] in Urine by AutomatedOrdered By: Leroy Ashby on 07-15-2024 Leukocyte clumps Auto Ql (U) Leukocyte clumps [Presence] in Urine by Automated High None Seen [facility] Leukocyte esterase [Presence ] in Urine by Test stripOrdered By: Leroy Ashby on 07-15-2024 Leukocyte esterase Test strip Ql (U) Leukocyte esterase [Presence] in Urine by Test strip High Negative [facility] Leukocytes [#/area] in Urine sediment by Automated countOrdered By: Leroy Ashby on 07-15-2024 WBC Auto (Urine sed) [#/Area] Leukocytes [#/area] in Urine sediment by Automated count High 0-4 [facility] Mucus [Presence] in Urine by AutomatedOrdered By: Leroy Ashby on 07-15-2024 Mucus Auto Ql (U) Mucus [Presence] in Urine by Automated [facility] Nitrite Test strip Ql (U)Ord ered By: Leroy Ashby on 07-15-2024 Nitrite Ql (U) Nitrite [Presence] in Urine by Test strip Negative [facility] Protein Creat Ratio Ur Rando mon 07-15-2024 Creatinine, Urine (Random) 25.00 mg/dL Normal [facility] Comment on above: Result Comment: No r eference range established Performed By: #### P T, BMP, PTT, CBC #### [address] Protein (U) [Mass/Vol] 66 mg/dL High 0-9 [facility] Comment on above: Performed By: #### P T, BMP, PTT, CBC #### [address] Urine Protein/Creatinine Ratio 2640 mg/g{Cre} High 0-200 [facility] Comment on above: Result Comment: PERF ORMED BY: [place] [address] PATHOLOGIST PACK PULLER RADHA DURAN M.D. Performed By: #### P T, BMP, PTT, CBC #### [place] [id number] [place] Protein Test strip (U) [Mass /Vol]Ordered By: Leroy Akinsr on 07-15-2024 Protein (U) [Mass/Vol] Protein [Mass/volume] in Urine by Test strip High Negative [facility] Protein [Mass/volume] in Uri neOrdered By: Leroy Isma on 07-15-2024 Protein (U) [Mass/Vol] Protein [Mass/volume] in Urine High 0-9 [facility] Specific gravity Test strip (U) [Rel density]Ordered By: Leroy Isma on 07-15-2024 Specific gravity (U) [Rel density] Specific gravity of Urine by Test strip 1.001-1.030 [facility] Urine Cultureon 07-15-2024 Bacteria identified Cx Nom (U) 75,000 colonies/ml mixed bacterial skin contaminants 2 Days PERFORMED BY: [place] [address] PATHOLOGIST PACK PULLER RADHA DURAN M.D. Normal [facility] Comment on above: Performed By: #### H S TROP, CKMB, CK #### [address] Urine cultureOrdered By: Carol Ashby on 07-15-2024 Bacteria identified Cx Nom (U) Urine culture [facility] Urine protein/creatinine rat ioOrdered By: Leroy Isma on 07-15-2024 Protein/Creatinine (U) [Ratio] Urine protein/creatinine ratio High 0-200 [facility] Urobilinogen Test strip (U) [Mass/Vol]Ordered By: Leroy Ashby on 07-15-2024 Urobilinogen (U) [Mass/Vol] Urobilinogen [Mass/volume] in Urine by Test strip Normal [facility] pH Test strip (U)Ordered By: Leroy Ashby on 07-15-2024 pH (U) pH of Urine by Test strip 5.0-9.0 [facility] A1C with Estimated Average G svenn 06-28-2024 Glucose [Mass/Vol] 189 mg/dL Normal [facility] Comment on above: Result Comment: PERF ORMED BY: [facility] [address] [place] [address] PATHOLOGIST PACK PULLER RADHA DURAN M.D. Performed By: #### H S TROP, CKMB, CK #### [facility] [address] HbA1c (Bld) [Mass fraction] 8.2 % High 4.3-5.6 [facility] Comment on above: Result Comment: Incr eased risk for diabetes: 5.7 - 6.4 diabetes: >6.4 glycemic control for adults with diabetes: <7.0 Performed By: #### H S TROP, CKMB, CK #### [facility] [address] Albumin [Mass/volume] in Ser um or Plasma by Bromocresol green (BCG) dye binding methoOrdered By: Leroy Ashby on 06-28-2024 Albumin BCG dye [Mass/Vol] Albumin [Mass/volume] in Serum or Plasma by Bromocresol green (BCG) dye binding metho 3.5-5.7 [facility] Blood estimated average gluc ose determination by estimation from glycated hemoglobinOrdered By: Da Lozano on 06-28-2024 Average glucose Estimated from glycated hemoglobin (Bld) [Mass/Vol] Glucose mean value [Mass/volume] in Blood Estimated from glycated hemoglobin [facility] Calcium [Mass/volume] in Ser um or PlasmaOrdered By: Leroy Ashby on 06-28-2024 Calcium [Mass/Vol] Calcium [Mass/volume] in Serum or Plasma 8.6-10.3 [facility] Carbon dioxide, total [Moles /volume] in Serum or PlasmaOrdered By: Leroy Ashby on 06-28-2024 CO2 [Moles/Vol] Carbon dioxide, total [Moles/volume] in Serum or Plasma 21.0-31.0 [facility] Chloride [Moles/volume] in S paloma or PlasmaOrdered By: Leroy Ashby on 06-28-2024 Chloride [Moles/Vol] Chloride [Moles/volume] in Serum or Plasma 98-107 [facility] Creatinine [Mass/volume] in Serum or PlasmaOrdered By: Leroy Ashby on 06-28-2024 Creatinine [Mass/Vol] Creatinine [Mass/volume] in Serum or Plasma High 0.60-1.20 [facility] Erythrocyte distribution wid th Auto (RBC) [Ratio]Ordered By: Leroy Ashby on 06-28-2024 Erythrocyte distribution width (RBC) [Ratio] Erythrocyte distribution width [Ratio] by Automated count High 11.9-15.3 [facility] Ferritinon 06-28-2024 Ferritin [Mass/Vol] 96.0 ng/mL Normal 11.0-306.8 [facility] Comment on above: Performed By: #### H S TROP, CKMB, CK #### [facility] [address] Ferritin [Mass/volume] in Se rum or PlasmaOrdered By: Leroy Ashby on 06-28-2024 Ferritin [Mass/Vol] Ferritin [Mass/volume] in Serum or Plasma 11.0-306.8 [facility] Folate [Mass/volume] in Seru m or PlasmaOrdered By: Leroy Ashby on 06-28-2024 Folate [Mass/Vol] Folate [Mass/volume] in Serum or Plasma >5.9 [facility] Comment on above: Folate reference ran ge: >5.9 ng/mlThe WHO technical consultation on folate and vitamin [id number] has determined that folate concentrations lessthan 4 ng/ml are considered deficient. Free K+L LT Chains, Qn, Son 06-28-2024 Free [place] Light Chains, S 113.1 mg/L High 3.3-19.4 [facility] Comment on above: Performed By: #### H S TROP, CKMB, CK #### [facility] [address] [place] [id number] [facility] Free Lambda Light Chains, S 52.4 mg/L High 5.7-26.3 [facility] Comment on above: Performed By: #### H S TROP, CKMB, CK #### [facility] [address] [place] [id number] [place]/Lambda Ratio, S 2.16 High 0.26-1.65 [facility] Comment on above: Result Comment: Perf ormed at: CB - [facility] [address], [place], [place] [id number] Pharmacy Intern: Mohan Talbert PhD, Phone: [phone] PERFORMED BY: [place] [address] PATHOLOGIST PACK PULLER RADHA DURAN M.D. Performed By: #### H S TROP, CKMB, CK #### [address] Glucose [Mass/volume] in Ser um or PlasmaOrdered By: Leroy Ashby on 06-28-2024 Glucose [Mass/Vol] Glucose [Mass/volume] in Serum or Plasma High 70-100 [facility] Comment on above: ADA recommended refe rence rangeRandom Glucose Reference Range is dependent on time and content of last meal. Glucose of more than 200 mg/dL in a nonstressed, ambulatory subject supports the diagnosis of Diabetes Mellitus. Hematocrit Auto (Bld) [Volum e fraction]Ordered By: Leroy Ashby on 06-28-2024 Hematocrit (Bld) [Volume fraction] Hematocrit [Volume Fraction] of Blood by Automated count 34.0-46.4 [facility] Hemoglobin A1c/Hemoglobin.to nathen in BloodOrdered By: Da Lozano on 06-28-2024 HbA1c (Bld) [Mass fraction] Hemoglobin A1c percentage High 4.3-5.6 [facility] Comment on above: Increased risk for d iabetes: 5.7 - 6.4diabetes: >6.4glycemic control for adults with diabetes: <7.0 Hemoglobin [Mass/volume] in BloodOrdered By: Leroy Ashby on 06-28-2024 Hemoglobin (Bld) [Mass/Vol] Hemoglobin [Mass/volume] in Blood 11.8-15.4 [facility] Hemogram CBC Without Diffon 06-28-2024 Erythrocyte distribution width (RBC) [Ratio] 15.9 % High 11.9-15.3 [facility] Comment on above: Performed By: #### H S TROP, CKMB, CK #### [address] Hematocrit (Bld) [Volume fraction] 37.6 % Normal 34.0-46.4 [facility] Comment on above: Performed By: #### H S TROP, CKMB, CK #### [address] Hemoglobin (Bld) [Mass/Vol] 12.2 g/dL Normal 11.8-15.4 [facility] Comment on above: Performed By: #### H S TROP, CKMB, CK #### [address] MCH (RBC) [Entitic mass] 31.7 pg Normal 24.7-34.3 [facility] Comment on above: Performed By: #### H S TROP, CKMB, CK #### [address] MCV (RBC) [Entitic vol] 98.3 fL Normal 80-100 [facility] Comment on above: Performed By: #### H S TROP, CKMB, CK #### [address] Mean Corpuscular HGB Conc 32.3 g/dL Normal 32.0-35.0 [facility] Comment on above: Performed By: #### H S TROP, CKMB, CK #### [address] Platelet mean volume (Bld) [Entitic vol] 9.1 fL Normal 6.3-10.7 [facility] Comment on above: Result Comment: PERF ORMED BY: [place] [address] PATHOLOGIST PACK PULLER RADHA DURAN M.D. Performed By: #### H S TROP, CKMB, CK #### [address] Platelets (Bld) [#/Vol] 229 10*3/uL Normal 150-450 [facility] Comment on above: Performed By: #### H S TROP, CKMB, CK #### [facility] [address] RBC (Bld) [#/Vol] 3.83 10*6/uL Normal 3.60-5.00 [facility] Comment on above: Performed By: #### H S TROP, CKMB, CK #### [facility] [address] [place] [id number] [facility] WBC (Bld) [#/Vol] 9.2 10*3/uL Normal 3.8-11.6 [facility] Comment on above: Performed By: #### H S TROP, CKMB, CK #### [facility] [address] [place] [address] [place] Immunofixation,Serumon 06-28 Immunofixation, Serum Comment: Normal . [facility] Comment on above: Result Comment: Pres ence of monoclonal protein is unclear at this time. Suggest repeat in 3 to 6 months if clinically indicated. Performed By: #### H S TROP, CKMB, CK #### [place] [address] [place] Immunoglobulin A, Serum 394 mg/dL Normal 64-422 [facility] Comment on above: Performed By: #### H S TROP, CKMB, CK #### [facility] [address] [place] [id number] [facility] Immunoglobulin G 1087 mg/dL Normal 586-1602 [facility] Comment on above: Performed By: #### H S TROP, CKMB, CK #### [facility] [address] [place] [address] [place] Immunoglobulin M, Serum 86 mg/dL Normal 26-217 [facility] Comment on above: Result Comment: Perf ormed at: - [facility] [address] [id number] Pharmacy Intern: Mohan Talbert PhD, Phone: [phone] Performed By: #### H S TROP, CKMB, CK #### [facility] [address] [place] [id number] [place] Iron [Mass/volume] in Serum or PlasmaOrdered By: Leroy Ashby on 06-28-2024 Iron [Mass/Vol] Iron [Mass/volume] in Serum or Plasma 50-212 [facility] Iron and TIBC Profileon 06-13 % Iron Saturation 24.4 % Normal 20-50 [facility] Comment on above: Performed By: #### H S TROP, CKMB, CK #### [facility] [address] [place] [id number] [facility] Iron [Mass/Vol] 66 ug/dL Normal 50-212 [facility] Comment on above: Performed By: #### H S TROP, CKMB, CK #### [facility] [address] Total Iron Binding Capacity 270 ug/dL Normal 255-450 [facility] Comment on above: Performed By: #### H S TROP, CKMB, CK #### [facility] [address] [place] [id number] [facility] Transferrin [Mass/Vol] 193 mg/dL Low 203-362 [facility] Comment on above: Performed By: #### H S TROP, CKMB, CK #### [facility] [address] Leukocytes [#/volume] correc suzi for nucleated erythrocytes in Blood by Automated counOrdered By: Leroy Ashby on 06-28-2024 WBC corrected for nucl RBC Auto (Bld) [#/Vol] Leukocytes [#/volume] corrected for nucleated erythrocytes in Blood by Automated coun 3.8-11.6 [facility] MCH Auto (RBC) [Entitic mass ]Ordered By: Leroy Ashby on 06-28-2024 MCH (RBC) [Entitic mass] MCH [Entitic mass] by Automated count 24.7-34.3 [facility] MCHC Auto (RBC) [Mass/Vol]Or dered By: Leroy Ashby on 06-28-2024 MCHC (RBC) [Mass/Vol] MCHC [Mass/volume] by Automated count 32.0-35.0 [facility] MCV Auto (RBC) [Entitic vol] Ordered By: Leroy Ashby on 06-28-2024 MCV (RBC) [Entitic vol] MCV [Entitic volume] by Automated count 80-100 [facility] Magnesiumon 06-28-2024 Magnesium [Mass/Vol] 1.9 mg/dL Normal 1.9-2.7 [facility] Comment on above: Performed By: #### H S TROP, CKMB, CK #### [facility] [address] Magnesium [Mass/volume] in S [place] or PlasmaOrdered By: Leroy Ashby on 06-28-2024 Magnesium [Mass/Vol] Magnesium [Mass/volume] in Serum or Plasma 1.9-2.7 [facility] No Panel InformationOrdered By: Leroy Ashby on 06-28-2024 Estimated GFR (CKD-EPI) 36.998 mL/Min [facility] Creatinine Clearance (Chem N/A [facility] Protein Electrophoresis Interpret Comment . [facility] Comment on above: The SPE pattern demo nstrates elevation of regionscontaining acute phase proteins suggesting anacute/subacute inflammatory response. Some conditions inwhich this pattern has been observed include: bacterial,viral or parasitic infection; mechanical, physical orchemical trauma; and cardiac failure. The gamma globulinregion is unremarkable and evidence of monoclonal proteinis not apparent.Performed at: [facility] [id number] Director: Mohan Talbert PhD, Phone: [phone] Protein Electrophoresis M-Rafiq Not observed g/dL Not Observed [facility] Protein Electrophoresis Note Comment . [facility] Comment on above: Protein electrophore sis scan will follow via computer,mail, or drafting layout man delivery. Parathyrin.intact [Mass/volu me] in Serum or PlasmaOrdered By: Leroy Ashby on 06-28-2024 Parathyrin.intact [Mass/Vol] Parathyrin.intact [Mass/volume] in Serum or Plasma [facility] Parathyroid Hormone Intacton 06-28-2024 Parathyroid Hormone Intact 69.9 pg/mL Normal [facility] Comment on above: Result Comment: PERF ORMED BY: [facility] [address] [place] [address] PATHOLOGIST PACK PULLER RADHA DURAN M.D. Performed By: #### H S TROP, CKMB, CK #### [facility] [address] [place] [address] [place] Phosphate [Mass/volume] in S paloma or PlasmaOrdered By: Leroy Ashby on 06-28-2024 Phosphate [Mass/Vol] Phosphate [Mass/volume] in Serum or Plasma 2.5-4.5 [facility] Platelet mean volume Auto (B ld) [Entitic vol]Ordered By: Leroy Ashby on 06-28-2024 Platelet mean volume (Bld) [Entitic vol] Platelet mean volume [Entitic volume] in Blood by Automated count 6.3-10.7 [facility] Platelets Auto (Bld) [#/Vol] Ordered By: Leroy Ashby on 06-28-2024 Platelets (Bld) [#/Vol] Platelets [#/volume] in Blood by Automated count 150-450 [facility] Potassium [Moles/volume] in Serum or PlasmaOrdered By: Leroy Ashby on 06-28-2024 Potassium [Moles/Vol] Potassium [Moles/volume] in Serum or Plasma 3.5-5.1 [facility] Prot Electrophoresis w/Inter christine 06-28-2024 Albumin [Mass/Vol] 3.1 g/dL Normal 2.9-4.4 [facility] Comment on above: Performed By: #### H S TROP, CKMB, CK #### [facility] [address] Albumin/Globulin [Mass ratio] 0.8 {ratio} Normal 0.7-1.7 [facility] Comment on above: Performed By: #### H S TROP, CKMB, CK #### [facility] [address] [place] [address] [place] Zzuir-4-Olksrugv 0.3 g/dL Normal 0.0-0.4 [facility] Comment on above: Performed By: #### H S TROP, CKMB, CK #### [facility] [address] [place] [address] [place] Jxbeu-8-Atebgiwe 1.3 g/dL High 0.4-1.0 [facility] Comment on above: Performed By: #### H S TROP, CKMB, CK #### [facility] [address] Beta Globulin 1.1 g/dL Normal 0.7-1.3 [facility] Comment on above: Performed By: #### H S TROP, CKMB, CK #### [facility] [address] Gamma Globulin 1.1 g/dL Normal 0.4-1.8 [facility] Comment on above: Performed By: #### H S TROP, CKMB, CK #### [facility] [address] Globulin (S) [Mass/Vol] 3.7 g/dL Normal 2.2-3.9 [facility] Comment on above: Performed By: #### H S TROP, CKMB, CK #### [address] M-Rafiq Not Observed Normal Not Observed [facility] Comment on above: Performed By: #### H S TROP, CKMB, CK #### [address] Protein [Mass/Vol] 6.8 g/dL Normal 6.0-8.5 [facility] Comment on above: Performed By: #### H S TROP, CKMB, CK #### [address] SPE-Interpretation Comment Normal . [facility] Comment on above: Result Comment: The SPE pattern demonstrates elevation of regions containing acute phase proteins suggesting an acute/subacute inflammatory response. Some conditions in which this pattern has been observed include: bacterial, viral or parasitic infection; mechanical, physical or chemical trauma; and cardiac failure. The gamma globulin region is unremarkable and evidence of monoclonal protein is not apparent. Performed at: [facility] [id number] Pharmacy Intern: Mohan Talbert PhD, Phone: [phone] Performed By: #### H S TROP, CKMB, CK #### [facility] [address] SPE-Note Comment Normal . [facility] Comment on above: Result Comment: Prot ein electrophoresis scan will follow via computer, mail, or drafting layout man delivery. Performed By: #### H S TROP, CKMB, CK #### [address] RBC Auto (Bld) [#/Vol]Ordere d By: Leroy Ashby on 06-28-2024 RBC (Bld) [#/Vol] Erythrocytes [#/volume] in Blood by Automated count 3.60-5.00 [facility] Renal Function Panelon 06-28 Albumin [Mass/Vol] 3.6 g/dL Normal 3.5-5.7 [facility] Comment on above: Performed By: #### H S TROP, CKMB, CK #### [address] Anion gap [Moles/Vol] 12.9 mmol/L Normal 6.0-15.0 [facility] Comment on above: Performed By: #### H S TROP, CKMB, CK #### [address] Calcium [Mass/Vol] 9.3 mg/dL Normal 8.6-10.3 [facility] Comment on above: Performed By: #### H S TROP, CKMB, CK #### [address] Chloride [Moles/Vol] 101 mmol/L Normal 98-107 [facility] Comment on above: Performed By: #### H S TROP, CKMB, CK #### [address] CO2 [Moles/Vol] 29.5 mmol/L Normal 21.0-31.0 [facility] Comment on above: Performed By: #### H S TROP, CKMB, CK #### [address] Creatinine [Mass/Vol] 1.44 mg/dL High 0.60-1.20 [facility] Comment on above: Performed By: #### H S TROP CKMB, CK #### [facility] [address] Estimated GFR 36.998 mL/Min Normal [facility] Comment on above: Performed By: #### H S TROP CKMB, CK #### [address] Glucose [Mass/Vol] 151 mg/dL High 70-100 [facility] Comment on above: Result Comment: [facility] Glucose Reference Range is dependent on time and content of last meal. Glucose of more than 200 mg/dL in a nonstressed, ambulatory subject supports the diagnosis of Diabetes Mellitus. ADA recommended reference range Performed By: #### H S TROP CKMB, CK #### [address] Phosphate [Mass/Vol] 3.5 mg/dL Normal 2.5-4.5 [facility] Comment on above: Performed By: #### H S TROP CKMB, CK #### [address] Potassium [Moles/Vol] 4.4 mmol/L Normal 3.5-5.1 [facility] Comment on above: Performed By: #### H S TROP CKMB, CK #### [address] Sodium [Moles/Vol] 139 mmol/L Normal 136-145 [facility] Comment on above: Performed By: #### H S TROP CKMB, CK #### [address] Urea nitrogen [Mass/Vol] 28 mg/dL High 7-25 [facility] Comment on above: Performed By: #### H S TROP CKMB, CK #### [address] Serum free kappa light chain measurementOrdered By: Leroy Ashby on 06-28-2024 Immunoglobulin light chains.kappa.free (S) [Mass/Vol] Immunoglobulin light chains.kappa.free [Mass/volume] in Serum High 3.3-19.4 [facility] Serum globulin measurement ( mass/volume)Ordered By: Leroy Ashby on 06-28-2024 Globulin (S) [Mass/Vol] Serum globulin measurement (mass/volume) 2.2-3.9 [facility] Serum immunofixation electro phoresisOrdered By: Leroy Ashby on 06-28-2024 Serum Immunofixation Comment: . [facility] Comment on above: Presence of monoclon al protein is unclear at this time. Suggestrepeat in 3 to 6 months if clinically indicated. Serum immunoglobulin free ka ppa light chains/immunoglobulin free lambda light chainsOrdered By: Leroy Ashby on 06-28-2024 Immunoglobulin light chains.kappa.free/I mmunoglobulin light chains.lambda.free (S) [Mass ratio] Immunoglobulin light chains.kappa.free/I mmunoglobulin light chains.lambda.free [Mass High 0.26-1.65 [facility] Comment on above: Performed at: [employer] [place] [id number] Director: Mohan Talbert PhD, Phone: [phone] Serum or plasma IgA measurem ent (mass/volume)Ordered By: Leroy Ashby on 06-28-2024 IgA [Mass/Vol] IgA [Mass/volume] in Serum or Plasma 64-422 [facility] Serum or plasma IgG measurem ent (mass/volume)Ordered By: Leroy Ashby on 06-28-2024 IgG [Mass/Vol] IgG [Mass/volume] in Serum or Plasma [phone] [facility] Serum or plasma IgM measurem ent (mass/volume)Ordered By: Leroy Ashby on 06-28-2024 IgM [Mass/Vol] IgM [Mass/volume] in Serum or Plasma 26-217 [facility] Comment on above: Performed at: [employer] [place] [address] [id number] Director: Mohan Talbetr PhD, Phone: [phone] Serum or plasma albumin lei urement (mass/volume)Ordered By: Leroy Ashby on 06-28-2024 Albumin [Mass/Vol] Albumin [Mass/volume] in Serum or Plasma 2.9-4.4 [facility] Serum or plasma albumin/glob ulin mass ratioOrdered By: Leroy Ashby on 06-28-2024 Albumin/Globulin [Mass ratio] Serum or plasma albumin/globulin mass ratio 0.7-1.7 [facility] Serum or plasma alpha 1 glob ulin measurement by electrophoresis (mass/volume)Ordered By: Leroy Ashby on 06-28-2024 Alpha 1 globulin Elph [Mass/Vol] Serum or plasma alpha 1 globulin measurement by electrophoresis (mass/volume) 0.0-0.4 [facility] Serum or plasma alpha 2 glob ulin measurement by electrophoresis (mass/volume)Ordered By: Leroy Ashby on 06-28-2024 Alpha 2 globulin Elph [Mass/Vol] Serum or plasma alpha 2 globulin measurement by electrophoresis (mass/volume) High 0.4-1.0 [facility] Serum or plasma anion gap de terminationOrdered By: Leroy Ashby on 06-28-2024 Anion gap [Moles/Vol] Serum or plasma anion gap determination 6.0-15.0 [facility] Serum or plasma beta globuli n measurement by electrophoresis (mass/volume)Ordered By: Leroy Ashby on 06-28-2024 Beta globulin Elph [Mass/Vol] Serum or plasma beta globulin measurement by electrophoresis (mass/volume) 0.7-1.3 [facility] Serum or plasma gamma globul in measurement by electrophoresis (mass/volume)Ordered By: Leroy Ashby on 06-28-2024 Gamma globulin Elph [Mass/Vol] Serum or plasma gamma globulin measurement by electrophoresis (mass/volume) 0.4-1.8 [facility] Serum or plasma immunoglobul in free lambda light chains measurement (mass/volume)Ordered By: Leroy Ashby on 06-28-2024 Immunoglobulin light chains.lambda.free [Mass/Vol] Immunoglobulin light chains.lambda.free [Mass/volume] in Serum or Plasma High 5.7-26.3 [facility] Serum or plasma iron binding capacity measurement (mass/volume)Ordered By: Leroy Ashby on 06-28-2024 Iron binding capacity [Mass/Vol] Iron binding capacity [Mass/volume] in Serum or Plasma 255-450 [facility] Serum or plasma iron saturat ion measurement (mass fraction)Ordered By: Leroy Ashby on 06-28-2024 Iron saturation [Mass fraction] Iron saturation [Mass Fraction] in Serum or Plasma 20-50 [facility] Serum total protein measurem entOrdered By: Leroy Ashby on 06-28-2024 Protein [Mass/Vol] Protein [Mass/volume] in Serum or Plasma 6.0-8.5 [facility] Sodium [Moles/volume] in Ser um or PlasmaOrdered By: Leroy Ashby on 06-28-2024 Sodium [Moles/Vol] Sodium [Moles/volume] in Serum or Plasma 136-145 [facility] Transferrin [Mass/volume] in Serum or PlasmaOrdered By: Leroy Ashby on 06-28-2024 Transferrin [Mass/Vol] Transferrin [Mass/volume] in Serum or Plasma Low 203-362 [facility] Urate [Mass/volume] in Serum or PlasmaOrdered By: Leroy Ashby on 06-28-2024 Urate [Mass/Vol] Urate [Mass/volume] in Serum or Plasma 2.3-6.6 [facility] Urea nitrogen [Mass/volume] in Serum or PlasmaOrdered By: Leroy Ashby on 06-28-2024 Urea nitrogen [Mass/Vol] Urea nitrogen [Mass/volume] in Serum or Plasma High 7-25 [facility] Uric Acidon 06-28-2024 Urate [Mass/Vol] 4.3 mg/dL Normal 2.3-6.6 [facility] Comment on above: Performed By: #### H S TROP, CKMB, CK #### [facility] [address] Vit. B12/Folate Profileon Cobalamin (Vitamin B12) [Mass/Vol] 311 pg/mL Normal 180-914 [facility] Comment on above: Performed By: #### H S TROP, CKMB, CK #### [facility] [address] Folate 20.4 ng/mL Normal >5.9 [facility] Comment on above: Result Comment: Jess te reference range: >5.9 ng/ml The WHO technical consultation on folate and vitamin b12 deficiencies has determined that folate concentrations less than 4 ng/ml are considered deficient. Performed By: #### H S TROP, CKMB, CK #### [address] Vitamin B12 ser/plasOrdered By: Leroy Ashby on 06-28-2024 Cobalamin (Vitamin B12) [Mass/Vol] Vitamin B12 ser/plas 180-914 [facility] Vitamin D 25 Hydroxy Totalon 06-28-2024 Vitamin D 25 Hydroxy Total 59.6 ng/mL Normal 30-100 [facility] Comment on above: Result Comment: ROBERTO MIN D STATUS 25(OH)VITAMIN D RANGE (ng/mL) Deficient <20 Insufficient 20 to <30 Sufficient 30 to 100 Reference: Abhijeet Lao, Stacey CHATMAN, et al. Evaluation,treatment, and prevention of vitamin D deficiency; an Endocrine Society clinical practice guideline. JCEM. 2010; 96(7):191-. PERFORMED BY: [place] [address] PATHOLOGIST PACK PULLER RADHA DURAN M.D. Performed By: #### H S TROP, CKMB, CK #### [address] Vitamin D+Metabolites [Mass/ volume] in Serum or PlasmaOrdered By: Leroy Ashby on 06-28-2024 Vitamin D+Metabolites [Mass/Vol] Vitamin D+Metabolites [Mass/volume] in Serum or Plasma 30-100 [facility] Comment on above: VITAMIN D STATUS 25( OH)VITAMIN D RANGE (ng/mL) Deficient <20 Insufficient 20 to <30Sufficient 30 to 100Reference: Abhijeet Lao, Stacey CHATMAN, et al. Evaluation,treatment, and prevention of vitamin D deficiency; an Endocrine Society clinical practice guideline. JCEM. 2010; 96(7):1911-30. XR hip LT min 2V(w/wo pelvis )*on 06-28-2024 XR hip LT min 2V(w/wo pelvis)* [facility] [place] [address] [place] [address] XRay Report Signed Patient: Lexi Tatum MR#: [id number] : 1945 Acct:[id number] Age/Sex: 79 / F ADM Date: 06/28/24 Loc: [place] Room: Type: 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 Additional degenerative changes seen involving the visualized lower lumbar spine and SI joints. No acute bony process is noted. XR/XR hip LT min 2V(w/wo pelvis)* IMPRESSION: MODERATE RIGHT AND SEVERE LEFT DEGENERATIVE CHANGES OF THE HIPS WITHOUT ACUTE BONY PROCESS.. Impression dictated by: Earnest Iraheta Jr., D.OPaul06/28/2024 3:44 PM Dictation Location: [place] [address] Transcribed By: [facility] 06/28/24 1544 Dictated By: Earnest Iraheta Jr DO 06/28/24 1542 Signed By: 06/28/24 1544 Normal [facility] Albumin Levelon 06-24-2024 Albumin [Mass/Vol] 3.7 g/dL Normal 3.5-5.7 [facility] Comment on above: Result Comment: PERF ORMED BY: [place] [address] PATHOLOGIST PACK PULLER RADHA DURAN M.D. Performed By: #### H S TROP, CKMB, CK #### [address] Albumin [Mass/volume] in Ser um or Plasma by Bromocresol green (BCG) dye binding methoOrdered By: Da Lozano on 06-24-2024 Albumin BCG dye [Mass/Vol] Albumin [Mass/volume] in Serum or Plasma by Bromocresol green (BCG) dye binding metho 3.5-5.7 [facility] Appearance of UrineOrdered B y: Da Lozano on 06-24-2024 Appearance (U) Urine appearance Abnormal Clear [facility] Bacteria [Presence] in Urine by AutomatedOrdered By: Da Lozano on 06-24-2024 Bacteria Auto Ql (U) Bacteria [Presence] in Urine by Automated High None Seen [facility] Basic Metabolic Panelon 06-13 Anion gap [Moles/Vol] 14.2 mmol/L Normal 6.0-15.0 [facility] Comment on above: Performed By: #### H S TROP, CKMB, CK #### [facility] [address] [place] [address] [place] Calcium [Mass/Vol] 9.6 mg/dL Normal 8.6-10.3 [facility] Comment on above: Performed By: #### H S TROP, CKMB, CK #### [facility] [address] [place] [address] [place] Chloride [Moles/Vol] 99 mmol/L Normal 98-107 [facility] Comment on above: Performed By: #### H S TROP, CKMB, CK #### [facility] [address] [place] [id number] [place] CO2 [Moles/Vol] 32.5 mmol/L High 21.0-31.0 [facility] Comment on above: Performed By: #### H S TROP, CKMB, CK #### [facility] [address] [place] [id number] [place] Creatinine [Mass/Vol] 1.62 mg/dL High 0.60-1.20 [facility] Comment on above: Performed By: #### H S TROP, CKMB, CK #### [facility] [address] [place] [id number] [place] Estimated GFR 32.121 mL/Min Normal [facility] Comment on above: Performed By: #### H S TROP, CKMB, CK #### [facility] [address] Glucose [Mass/Vol] 77 mg/dL Normal 70-100 [facility] Comment on above: Result Comment: [place] Glucose Reference Range is dependent on time and content of last meal. Glucose of more than 200 mg/dL in a nonstressed, ambulatory subject supports the diagnosis of Diabetes Mellitus. ADA recommended reference range Performed By: #### H S TROP, CKMB, CK #### [facility] [address] Potassium [Moles/Vol] 4.7 mmol/L Normal 3.5-5.1 [facility] Comment on above: Performed By: #### H S TROP, CKMB, CK #### [address] Sodium [Moles/Vol] 141 mmol/L Normal 136-145 [facility] Comment on above: Performed By: #### H S TROP, CKMB, CK #### [address] Urea nitrogen [Mass/Vol] 34 mg/dL High 7-25 [facility] Comment on above: Performed By: #### H S TROP, CKMB, CK #### [place] [address] [place] Basophils Auto (Bld) [#/Vol] Ordered By: Da Lozano on 06-24-2024 Basophils (Bld) [#/Vol] Automated basophil count 0.0-0.2 [facility] Basophils/100 WBC Auto (Bld) Ordered By: Da Lozano on 06-24-2024 Basophils/100 WBC (Bld) Automated basophil % . [facility] Bilirubin Test strip Ql (U)O rdered By: Da Lozano on 06-24-2024 Bilirubin Ql (U) Bilirubin.total [Presence] in Urine by Test strip Negative [facility] Calcium [Mass/volume] in Ser um or PlasmaOrdered By: Da Lozano on 06-24-2024 Calcium [Mass/Vol] Calcium [Mass/volume] in Serum or Plasma 8.6-10.3 [facility] Carbon dioxide, total [Moles /volume] in Serum or PlasmaOrdered By: Da Lozano on 06-24-2024 CO2 [Moles/Vol] Carbon dioxide, total [Moles/volume] in Serum or Plasma High 21.0-31.0 [facility] Chloride [Moles/volume] in [place] or PlasmaOrdered By: Da Lozano on 06-24-2024 Chloride [Moles/Vol] Chloride [Moles/volume] in Serum or Plasma 98-107 [facility] Color Auto (U)Ordered By: Yuki Lozano on 06-24-2024 Color (U) Color of Urine by Auto Abnormal Yellow [facility] Complete Blood Count Auto Di ffon 06-24-2024 Basophils (Bld) [#/Vol] 0.1 10*3/uL Normal 0.0-0.2 [facility] Comment on above: Result Comment: PERF ORMED BY: [place] [address] PATHOLOGIST PACK PULLER RADHA DURAN M.D. Performed By: #### H S TROP, CKMB, CK #### [address] Basophils/100 WBC (Bld) 1.2 % Normal . [facility] Comment on above: Performed By: #### H S TROP, CKMB, CK #### [facility] [address] Eosinophils (Bld) [#/Vol] 0.4 10*3/uL Normal 0.0-0.45 [facility] Comment on above: Performed By: #### H S TROP, CKMB, CK #### [facility] [address] [place] [address] [place] Eosinophils/100 WBC (Bld) 3.9 % Normal . [facility] Comment on above: Performed By: #### H S TROP, CKMB, CK #### [address] Erythrocyte distribution width (RBC) [Ratio] 15.6 % High 11.9-15.3 [facility] Comment on above: Performed By: #### H S TROP, CKMB, CK #### [address] Hematocrit (Bld) [Volume fraction] 36.3 % Normal 34.0-46.4 [facility] Comment on above: Performed By: #### H S TROP, CKMB, CK #### [address] Hemoglobin (Bld) [Mass/Vol] 11.9 g/dL Normal 11.8-15.4 [facility] Comment on above: Performed By: #### H S TROP, CKMB, CK #### [address] Lymphocytes (Bld) [#/Vol] 2.1 10*3/uL Normal 1.00-4.8 [facility] Comment on above: Performed By: #### H S TROP, CKMB, CK #### [address] Lymphocytes/100 WBC (Bld) 19.4 % Normal . [facility] Comment on above: Performed By: #### H S TROP, CKMB, CK #### [address] MCH (RBC) [Entitic mass] 31.9 pg Normal 24.7-34.3 [facility] Comment on above: Performed By: #### H S TROP, CKMB, CK #### [address] MCV (RBC) [Entitic vol] 97.5 fL Normal 80-100 [facility] Comment on above: Performed By: #### H S TROP, CKMB, CK #### [address] Mean Corpuscular HGB Conc 32.7 g/dL Normal 32.0-35.0 [facility] Comment on above: Performed By: #### H S TROP, CKMB, CK #### [address] [place] [address] [place] Monocytes (Bld) [#/Vol] 0.8 10*3/uL Normal 0.0-0.8 [facility] Comment on above: Performed By: #### H S TROP, CKMB, CK #### [place] [address] [place] Monocytes/100 WBC (Bld) 7.5 % Normal . [facility] Comment on above: Performed By: #### H S TROP, CKMB, CK #### [address] Neutrophils (Bld) [#/Vol] 7.4 10*3/uL Normal 1.8-7.7 [facility] Comment on above: Performed By: #### H S TROP, CKMB, CK #### [address] Neutrophils/100 WBC (Bld) 68.0 % Normal . [facility] Comment on above: Performed By: #### H S TROP, CKMB, CK #### [address] NRBC% 0.0 /100{WBC} Normal 0-0.5 [facility] Comment on above: Performed By: #### H S TROP, CKMB, CK #### [address] Platelet mean volume (Bld) [Entitic vol] 9.0 fL Normal 6.3-10.7 [facility] Comment on above: Performed By: #### H S TROP, CKMB, CK #### [place] [address] [place] Platelets (Bld) [#/Vol] 252 10*3/uL Normal 150-450 [facility] Comment on above: Performed By: #### H S TROP, CKMB, CK #### [place] [address] [place] RBC (Bld) [#/Vol] 3.73 10*6/uL Normal 3.60-5.00 [facility] Comment on above: Performed By: #### H S TROP, CKMB, CK #### [facility] [address] WBC (Bld) [#/Vol] 10.9 10*3/uL Normal 3.8-11.6 [facility] Comment on above: Performed By: #### H S TROP, CKMB, CK #### [address] Creatinine [Mass/volume] in Serum or PlasmaOrdered By: Da Lozano on 06-24-2024 Creatinine [Mass/Vol] Creatinine [Mass/volume] in Serum or Plasma High 0.60-1.20 [facility] Dipstick and Microscopicon 1 08-25-2023 Appearance (U) Turbid Critically abnormal Clear [facility] Comment on above: Order Comment: Name Collection Type:: Clean-Voided Midstream Performed By: #### P T, BMP, PTT, CBC #### [address] Bacteria,Urine 4+ High None Seen [facility] Comment on above: Order Comment: Name Collection Type:: Clean-Voided Midstream Performed By: #### P T, BMP, PTT, CBC #### [address] Bilirubin,Urine Negative Normal Negative [facility] Comment on above: Order Comment: Name Collection Type:: Clean-Voided Midstream Performed By: #### P T, BMP, PTT, CBC #### [address] Color (U) [place] Critically abnormal Yellow [facility] Comment on above: Order Comment: Name Collection Type:: Clean-Voided Midstream Performed By: #### P T, BMP, PTT, CBC #### [address] Glucose Ql (U) Normal Normal Normal [facility] Comment on above: Order Comment: Name Collection Type:: Clean-Voided Midstream Performed By: #### P T, BMP, PTT, CBC #### [place] [address] [place] Hyaline Casts,Urine None Normal 0-8 [facility] Comment on above: Order Comment: Name Collection Type:: Clean-Voided Midstream Performed By: #### P T, BMP, PTT, CBC #### [address] Ketones Ql (U) Negative Normal Negative [facility] Comment on above: Order Comment: Name Collection Type:: Clean-Voided Midstream Performed By: #### P T, BMP, PTT, CBC #### [address] Leukocyte esterase Test strip Ql (U) 4+ High Negative [facility] Comment on above: Order Comment: Name Collection Type:: Clean-Voided Midstream Performed By: #### P T, BMP, PTT, CBC #### [place] [address] [place] Mucus,Urine Rare Normal [facility] Comment on above: Order Comment: Name Collection Type:: Clean-Voided Midstream Result Comment: PERF ORMED BY: [place] [address] PATHOLOGIST PACK PULLER RADHA DURAN M.D. Performed By: #### P T, BMP, PTT, CBC #### [place] [address] [place] Nitrite,Urine Negative Normal Negative [facility] Comment on above: Order Comment: Name Collection Type:: Clean-Voided Midstream Performed By: #### P T, BMP, PTT, CBC #### [place] [address] [place] Occult Blood,Urine 1+ High Negative [facility] Comment on above: Order Comment: Name Collection Type:: Clean-Voided Midstream Result Comment: PERF ORMED BY: [place] [address] PATHOLOGIST PACK PULLER RADHA DURAN M.D. Performed By: #### P T, BMP, PTT, CBC #### [address] pH (U) 6.5 [pH] Normal 5.0-9.0 [facility] Comment on above: Order Comment: Name Collection Type:: Clean-Voided Midstream Performed By: #### P T, BMP, PTT, CBC #### [address] Protein (U) [Mass/Vol] 70 mg/dL High Negative [facility] Comment on above: Order Comment: Name Collection Type:: Clean-Voided Midstream Performed By: #### P T, BMP, PTT, CBC #### [address] RBC,Urine 20 [HPF] High 0-4 [facility] Comment on above: Order Comment: Name Collection Type:: Clean-Voided Midstream Performed By: #### P T, BMP, PTT, CBC #### [address] Specificy [place],Urine 1.010 Normal 1.001-1.030 [facility] Comment on above: Order Comment: Name Collection Type:: Clean-Voided Midstream Performed By: #### P T, BMP, PTT, CBC #### [address] Squamous Epithelial Cell,Urine 20 [HPF] High 0-2 [facility] Comment on above: Order Comment: Name Collection Type:: Clean-Voided Midstream Performed By: #### P T, BMP, PTT, CBC #### [address] Urobilinogen,Urine Normal Normal Normal [facility] Comment on above: Order Comment: Name Collection Type:: Clean-Voided Midstream Performed By: #### P T, BMP, PTT, CBC #### [address] WBC CL[place], Urine Many High None Seen [facility] Comment on above: Order Comment: Name Collection Type:: Clean-Voided Midstream Performed By: #### P T, BMP, PTT, CBC #### [facility] [address] WBC,Urine Innumerable High 0-4 [facility] Comment on above: Order Comment: Name Collection Type:: Clean-Voided Midstream Performed By: #### P T, BMP, PTT, CBC #### [facility] [address] Eosinophils Auto (Bld) [#/Vo l]Ordered By: Da Lozano on 06-24-2024 Eosinophils (Bld) [#/Vol] Automated eosinophil count 0.0-0.45 [facility] Eosinophils/100 WBC Auto (Bl d)Ordered By: Da Lozano on 06-24-2024 Eosinophils/100 WBC (Bld) Automated eosinophil % . [facility] Epithelial cells.squamous [# /area] in Urine sediment by Automated countOrdered By: Da Lozano on 06-24-2024 Epithelial cells.squamous Auto (Urine sed) [#/Area] Epithelial cells.squamous [#/area] in Urine sediment by Automated count High 0-2 [facility] Erythrocyte distribution wid th Auto (RBC) [Ratio]Ordered By: Da Lozano on 06-24-2024 Erythrocyte distribution width (RBC) [Ratio] Erythrocyte distribution width [Ratio] by Automated count High 11.9-15.3 [facility] Erythrocytes [#/area] in Uri ne sediment by Automated countOrdered By: Da Lozano on 06-24-2024 RBC Auto (Urine sed) [#/Area] Erythrocytes [#/area] in Urine sediment by Automated count High 0-4 [facility] Fructosamineon 06-24-2024 Fructosamine 308 umol/L High 0-285 [facility] Comment on above: Result Comment: Publ ished reference interval for apparently healthy subjects between age 20 and 60 is 205 - 285 umol/L and in a poorly controlled diabetic population is 228 - 563 umol/L with a mean of 396 umol/L. Performed at: - [facility] [id number] Pharmacy Intern: Mohan Talbert PhD, Phone: [phone] PERFORMED BY: [place] [id number] PATHOLOGIST PACK PULLER RADHA DURAN M.D. Performed By: #### G DALLIN #### Point of Care testing , Fructosamine [Moles/volume] in Serum or PlasmaOrdered By: Da Lozano on 06-24-2024 Fructosamine [Moles/Vol] Fructosamine [Moles/volume] in Serum or Plasma High 0-285 [facility] Comment on above: Published reference interval for apparently healthysubjects between age 20 and 60 is 205 - 285 umol/L and in apoorly controlled diabetic population is 228 - 563 umol/Lwith a mean of 396 umol/L.Performed at: [facility] [id number] Director: Mohan Talbert PhD, Phone: [phone] Glucose [Mass/volume] in Ser um or PlasmaOrdered By: Da Lozano on 06-24-2024 Glucose [Mass/Vol] Glucose [Mass/volume] in Serum or Plasma 70-100 [facility] Comment on above: ADA recommended refe rence rangeRandom Glucose Reference Range is dependent on time and content of last meal. Glucose of more than 200 mg/dL in a nonstressed, ambulatory subject supports the diagnosis of Diabetes Mellitus. Glucose [Mass/volume] in Uri ne by Test stripOrdered By: Da Lozano on 06-24-2024 Glucose Test strip (U) [Mass/Vol] Glucose [Mass/volume] in Urine by Test strip Normal [facility] Hematocrit Auto (Bld) [Volum e fraction]Ordered By: Da Lozano on 06-24-2024 Hematocrit (Bld) [Volume fraction] Hematocrit [Volume Fraction] of Blood by Automated count 34.0-46.4 [facility] Hemoglobin Test strip Ql (U) Ordered By: Da Lozano on 06-24-2024 Hemoglobin Ql (U) Hemoglobin [Presence] in Urine by Test strip High Negative [facility] Hemoglobin [Mass/volume] in BloodOrdered By: Da Lozano on 06-24-2024 Hemoglobin (Bld) [Mass/Vol] Hemoglobin [Mass/volume] in Blood 11.8-15.4 [facility] Hyaline casts [#/area] in Ur ine sediment by Automated countOrdered By: Da Lozano on 06-24-2024 Hyaline casts Auto (Urine sed) [#/Area] Hyaline casts [#/area] in Urine sediment by Automated count 0-8 [facility] Ketones Test strip Ql (U)Ord ered By: Da Lozano on 06-24-2024 Ketones Ql (U) Ketones [Presence] in Urine by Test strip Negative [facility] Leukocyte clumps [Presence] in Urine by AutomatedOrdered By: Da Lozano on 06-24-2024 Leukocyte clumps Auto Ql (U) Leukocyte clumps [Presence] in Urine by Automated High None Seen [facility] Leukocyte esterase [Presence ] in Urine by Test stripOrdered By: Da Lozano on 06-24-2024 Leukocyte esterase Test strip Ql (U) Leukocyte esterase [Presence] in Urine by Test strip High Negative [facility] Leukocytes [#/area] in Urine sediment by Automated countOrdered By: Da Lozano on 06-24-2024 WBC Auto (Urine sed) [#/Area] Leukocytes [#/area] in Urine sediment by Automated count High 0-4 [facility] Leukocytes [#/volume] correc suzi for nucleated erythrocytes in Blood by Automated counOrdered By: Da Lozano on 06-24-2024 WBC corrected for nucl RBC Auto (Bld) [#/Vol] Leukocytes [#/volume] corrected for nucleated erythrocytes in Blood by Automated coun 3.8-11.6 [facility] Lymphocytes Auto (Bld) [#/Vo l]Ordered By: Da Lozano on 06-24-2024 Lymphocytes (Bld) [#/Vol] Lymphocytes [#/volume] in Blood by Automated count 1.00-4.8 [facility] Lymphocytes/100 WBC Auto (Bl d)Ordered By: Da Lozano on 06-24-2024 Lymphocytes/100 WBC (Bld) Lymphocytes/100 leukocytes in Blood by Automated count . [facility] MCH Auto (RBC) [Entitic mass ]Ordered By: Da Lozano on 06-24-2024 MCH (RBC) [Entitic mass] MCH [Entitic mass] by Automated count 24.7-34.3 [facility] MCHC Auto (RBC) [Mass/Vol]Or dered By: Da Lozano on 06-24-2024 MCHC (RBC) [Mass/Vol] MCHC [Mass/volume] by Automated count 32.0-35.0 [facility] MCV Auto (RBC) [Entitic vol] Ordered By: Da Lozano on 06-24-2024 MCV (RBC) [Entitic vol] MCV [Entitic volume] by Automated count 80-100 [facility] Monocytes Auto (Bld) [#/Vol] Ordered By: Da Lozano on 06-24-2024 Monocytes (Bld) [#/Vol] Automated blood monocyte count 0.0-0.8 [facility] Monocytes/100 WBC Auto (Bld) Ordered By: Da Lozano on 06-24-2024 Monocytes/100 WBC (Bld) Automated monocyte % . [facility] Mucus [Presence] in Urine by AutomatedOrdered By: Da Lozano on 06-24-2024 Mucus Auto Ql (U) Mucus [Presence] in Urine by Automated [facility] Neutrophils Auto (Bld) [#/Vo l]Ordered By: Da Lozano on 06-24-2024 Neutrophils (Bld) [#/Vol] Neutrophils [#/volume] in Blood by Automated count 1.8-7.7 [facility] Neutrophils/100 WBC Auto (Bl d)Ordered By: Da Lozano on 06-24-2024 Neutrophils/100 WBC (Bld) Automated neutrophil % . [facility] Nitrite Test strip Ql (U)Ord ered By: Da Lozano on 06-24-2024 Nitrite Ql (U) Nitrite [Presence] in Urine by Test strip Negative [facility] No Panel InformationOrdered By: Da Lozano on 06-24-2024 Estimated GFR (CKD-EPI) 32.121 mL/Min [facility] Creatinine Clearance (Chem N/A [facility] Nucleated erythrocytes [Pres ence] in Blood by Automated countOrdered By: Da Lozano on 06-24-2024 Nucleated RBC Auto Ql (Bld) Nucleated erythrocytes [Presence] in Blood by Automated count 0-0.5 [facility] PST Type and Screenon 2023 ABO and Rh group Nom (Bld) Blood group A Rh(D) positive Normal [facility] Comment on above: Order Comment: Date of Surgery: [id number] Result Comment: PERF ORMED BY: [facility] [place] [address] PATHOLOGIST PACK PULLER RADHA DURAN M.D. Platelet mean volume Auto (B ld) [Entitic vol]Ordered By: Da Lozano on 06-24-2024 Platelet mean volume (Bld) [Entitic vol] Platelet mean volume [Entitic volume] in Blood by Automated count 6.3-10.7 [facility] Platelets Auto (Bld) [#/Vol] Ordered By: Da Lozano on 06-24-2024 Platelets (Bld) [#/Vol] Platelets [#/volume] in Blood by Automated count 150-450 [facility] Potassium [Moles/volume] in Serum or PlasmaOrdered By: Da oLzano on 06-24-2024 Potassium [Moles/Vol] Potassium [Moles/volume] in Serum or Plasma 3.5-5.1 [facility] Protein Test strip (U) [Mass /Vol]Ordered By: Da Lozano on 06-24-2024 Protein (U) [Mass/Vol] Protein [Mass/volume] in Urine by Test strip High Negative [facility] RBC Auto (Bld) [#/Vol]Ordere d By: Da Lozano on 06-24-2024 RBC (Bld) [#/Vol] Erythrocytes [#/volume] in Blood by Automated count 3.60-5.00 [facility] Serum or plasma anion gap de terminationOrdered By: Da Lozano on 06-24-2024 Anion gap [Moles/Vol] Serum or plasma anion gap determination 6.0-15.0 [facility] Sodium [Moles/volume] in Ser um or PlasmaOrdered By: Da Lozano on 06-24-2024 Sodium [Moles/Vol] Sodium [Moles/volume] in Serum or Plasma 136-145 [facility] Specific gravity Test strip (U) [Rel density]Ordered By: Da Lozano on 06-24-2024 Specific gravity (U) [Rel density] Specific gravity of Urine by Test strip 1.001-1.030 [facility] Urea nitrogen [Mass/volume] in Serum or PlasmaOrdered By: Da Lozano on 06-24-2024 Urea nitrogen [Mass/Vol] Urea nitrogen [Mass/volume] in Serum or Plasma High 7-25 [facility] Urine Cultureon 06-24-2024 Bacteria identified Cx Nom (U) >100,000 colonies/ml mixed bacterial skin contaminants 2 Days PERFORMED BY: [place] [address] PATHOLOGIST PACK PULLER RADHA DURAN M.D. Normal [facility] Comment on above: Performed By: #### P T, BMP, PTT, CBC #### [address] Urine cultureOrdered By: Landon Lozano on 06-24-2024 Bacteria identified Cx Nom (U) Urine culture [facility] Urobilinogen Test strip (U) [Mass/Vol]Ordered By: Da Lozano on 06-24-2024 Urobilinogen (U) [Mass/Vol] Urobilinogen [Mass/volume] in Urine by Test strip Normal [facility] WBC Auto (Bld) [#/Vol]Ordere d By: Da Lozano on 06-24-2024 WBC (Bld) [#/Vol] Leukocytes [#/volume] in Blood by Automated count 3.8-11.6 [facility] pH Test strip (U)Ordered By: Da Lozano on 06-24-2024 pH (U) pH of Urine by Test strip 5.0-9.0 [facility] Glucose Glucometer (BldC) [M ass/Vol]Ordered By: Yaniv Natarajan on 2024 Glucose [Mass/Vol] Capillary blood glucose measurement by glucometer (mass/volume) [facility] Comment on above: Random Glucose Refer ence Range is dependent on time and content of last meal. Glucose of more than 200 mg/dL in a nonstressed, ambulatory subject supports the diagnosis of Diabetes Mellitus. Glucose Poct Glucometerson 1 08-04-2023 Glucose [Mass/Vol] 247 mg/dL Normal [facility] Comment on above: Result Comment: [facility] Glucose Reference Range is dependent on time and content of last meal. Glucose of more than 200 mg/dL in a nonstressed, ambulatory subject supports the diagnosis of Diabetes Mellitus. PERFORMED BY: [place] [address] PATHOLOGIST PACK PULLER RADHA DURAN M.D. Performed By: #### G LULS #### Point of Care testing , Commemt1 Glu2: Cleaned Meter Normal [facility] Comment on above: Performed By: #### G LULS #### Point of Care testing , Commemt2 WILL NOTIFY /LIANE [place] [facility] Comment on above: Result Comment: PERF ORMED BY: [address] [address] PATHOLOGIST PACK PULLER RADHA DURAN M.D. Performed By: #### G LULS #### Point of Care testing , Glucose [Mass/Vol] 174 mg/dL Normal [facility] Comment on above: Result Comment: [facility] Glucose Reference Range is dependent on time and content of last meal. Glucose of more than 200 mg/dL in a nonstressed, ambulatory subject supports the diagnosis of Diabetes Mellitus. Performed By: #### G LULS #### Point of Care testing , No Panel InformationOrdered By: Yaniv Natarajan on 2024 Bedside Glucose #2 Comment Will notify /liane [facility] Bedside Glucose Comment Glu2: cleaned meter [facility] XR KUBon 2024 XR KUB [facility] [address] [address] XRay Report Signed Patient: Lexi Tatum MR#: [id number] : 1945 Acct:[id number] Age/Sex: 79 / F ADM Date: 06/04/24 Loc: OR Room: Type: [facility] Attending Dr: Yaniv Natarajan MD Copies to: Yaniv Natarajan MD Ordering Provider: Yaniv Natarajan MD Date of Service: 06/04/24 XR/XR KUB: CYSTO BILAT STENT CHANGE PORTABLE KUB CLINICAL DATA: Cystoscopy with bilateral stent exchange COMPARISON: 01/23/2024 A single spot view of the abdomen was obtained and shows bilateral internal ureteral stents. Cumulative Air Kerma in mGy: 54 mGy Impression dictated by: Zayra Juarez M.D.06/04/2024 9:56 AM Dictation Location: [facility]- Transcribed By: [facility] 06/04/24955 Dictated By: Zayra Juarez MD 06/04/24954 Signed By: 06/04/24955 Normal [facility] Laboratory - Chemistry and C hemistry - challengeon 05-25-2024 Bilirubin Ql (U) Negative [facility] Glucose (U) [Mass/Vol] Negative [facility] Ketones Ql (U) Negative [facility] pH (U) 5 [pH] [facility] Specific gravity (U) [Rel density] 1.005 [facility] Urobilinogen (U) [Mass/Vol] 0.2 mg/dL [facility] Laboratory - Specimen inform ationon 05-25-2024 Appearance (U) cloudy [facility] Color (U) lightyellow [facility] Laboratory - Urinalysison Leukocyte esterase Test strip Ql (U) +++ [facility] Nitrite Ql (U) Negative [facility] Protein Ql (U) Negative [facility] No Panel Informationon 05-25 Urine Occult Blood Negative [facility] Urine Cultureon 05-25-2024 Bacteria identified Cx Nom (U) No Growth 2 Days PERFORMED BY: [facility] [address] [place] [address] PATHOLOGIST PACK PULLER RADHA DURAN M.D. Normal [facility] Comment on above: Performed By: #### P T, BMP, PTT, CBC #### [facility] [address] Urine cultureOrdered By: Sulema Best on 05-25-2024 Bacteria identified Cx Nom (U) Urine culture [facility] Basic Metabolic Panelon 11-0 Anion gap [Moles/Vol] 11.4 mmol/L Normal 6.0-15.0 [facility] Comment on above: Performed By: #### P T, BMP, PTT, CBC #### [place] [address] [place] Calcium [Mass/Vol] 10.1 mg/dL Normal 8.6-10.3 [facility] Comment on above: Result Comment: PERF ORMED BY: [place] [address] PATHOLOGIST PACK PULLER CORAL BECKETT M.D. Performed By: #### P T, BMP, PTT, CBC #### [address] Chloride [Moles/Vol] 98 mmol/L Normal 98-107 [facility] Comment on above: Performed By: #### P T, BMP, PTT, CBC #### [place] [address] [place] CO2 [Moles/Vol] 30.4 mmol/L Normal 21.0-31.0 [facility] Comment on above: Performed By: #### P T, BMP, PTT, CBC #### [address] Creatinine [Mass/Vol] 1.77 mg/dL High 0.60-1.20 [facility] Comment on above: Performed By: #### P T, BMP, PTT, CBC #### [place] [address] [place] GFR/1.73 sq M.predicted MDRD (S/P/Bld) [Vol rate/Area] 29.063 mL/min/{1.73_m2} Normal [facility] Comment on above: Performed By: #### P T, BMP, PTT, CBC #### [place] [address] [place] Glucose [Mass/Vol] 252 mg/dL High 70-100 [facility] Comment on above: Result Comment: [place] Glucose Reference Range is dependent on time and content of last meal. Glucose of more than 200 mg/dL in a nonstressed, ambulatory subject supports the diagnosis of Diabetes Mellitus. ADA recommended reference range Performed By: #### P T, BMP, PTT, CBC #### [facility] [address] Potassium [Moles/Vol] 4.8 mmol/L Normal 3.5-5.1 [facility] Comment on above: Performed By: #### P T, BMP, PTT, CBC #### [facility] [address] Sodium [Moles/Vol] 135 mmol/L Low 136-145 [facility] Comment on above: Performed By: #### P T, BMP, PTT, CBC #### [facility] [address] Urea nitrogen [Mass/Vol] 45 mg/dL High 7-25 [facility] Comment on above: Performed By: #### P T, BMP, PTT, CBC #### [facility] [address] [place] [address] [place] Basophils Auto (Bld) [#/Vol] Ordered By: Yaniv Natarajan on 05-21-2024 Basophils (Bld) [#/Vol] Automated basophil count 0.0-0.2 [facility] Basophils/100 WBC Auto (Bld) Ordered By: Yaniv Natarajan on 05-21-2024 Basophils/100 WBC (Bld) Automated basophil % . [facility] Calcium [Mass/volume] in Ser um or PlasmaOrdered By: Yaniv Natarajan on 05-21-2024 Calcium [Mass/Vol] Calcium [Mass/volume] in Serum or Plasma 8.6-10.3 [facility] Carbon dioxide, total [Moles /volume] in Serum or PlasmaOrdered By: Yaniv Natarajan on 05-21-2024 CO2 [Moles/Vol] Carbon dioxide, total [Moles/volume] in Serum or Plasma 21.0-31.0 [facility] Chloride [Moles/volume] in [place] or PlasmaOrdered By: Yaniv Natarajan on 05-21-2024 Chloride [Moles/Vol] Chloride [Moles/volume] in Serum or Plasma 98-107 [facility] Complete Blood Count Auto Di ffon 05-21-2024 Basophils (Bld) [#/Vol] 0.1 10*3/uL Normal 0.0-0.2 [facility] Comment on above: Result Comment: PERF ORMED BY: [place] [address] PATHOLOGIST PACK PULLER CORAL BECKETT M.D. Performed By: #### P T, BMP, PTT, CBC #### [address] Basophils/100 WBC (Bld) 0.8 % Normal . [facility] Comment on above: Performed By: #### P T, BMP, PTT, CBC #### [address] Eosinophils (Bld) [#/Vol] 0.3 10*3/uL Normal 0.0-0.45 [facility] Comment on above: Performed By: #### P T, BMP, PTT, CBC #### [address] Eosinophils/100 WBC (Bld) 2.4 % Normal . [facility] Comment on above: Performed By: #### P T, BMP, PTT, CBC #### [address] Erythrocyte distribution width (RBC) [Ratio] 16.1 % High 11.9-15.3 [facility] Comment on above: Performed By: #### P T, BMP, PTT, CBC #### [address] Hematocrit (Bld) [Volume fraction] 36.6 % Normal 34.0-46.4 [facility] Comment on above: Performed By: #### P T, BMP, PTT, CBC #### [address] Hemoglobin (Bld) [Mass/Vol] 12.0 g/dL Normal 11.8-15.4 [facility] Comment on above: Performed By: #### P T, BMP, PTT, CBC #### [address] Lymphocytes (Bld) [#/Vol] 1.8 10*3/uL Normal 1.00-4.8 [facility] Comment on above: Performed By: #### P T, BMP, PTT, CBC #### [address] Lymphocytes/100 WBC (Bld) 14.2 % Normal . [facility] Comment on above: Performed By: #### P T, BMP, PTT, CBC #### [address] MCH (RBC) [Entitic mass] 32.1 pg Normal 24.7-34.3 [facility] Comment on above: Performed By: #### P T, BMP, PTT, CBC #### [address] MCV (RBC) [Entitic vol] 98.0 fL Normal 80-100 [facility] Comment on above: Performed By: #### P T, BMP, PTT, CBC #### [address] Mean Corpuscular HGB Conc 32.7 g/dL Normal 32.0-35.0 [facility] Comment on above: Performed By: #### P T, BMP, PTT, CBC #### [address] Monocytes (Bld) [#/Vol] 0.8 10*3/uL Normal 0.0-0.8 [facility] Comment on above: Performed By: #### P T, BMP, PTT, CBC #### [address] Monocytes/100 WBC (Bld) 6.4 % Normal . [facility] Comment on above: Performed By: #### P T, BMP, PTT, CBC #### [address] Neutrophils (Bld) [#/Vol] 9.7 10*3/uL High 1.8-7.7 [facility] Comment on above: Performed By: #### P T, BMP, PTT, CBC #### [address] Neutrophils/100 WBC (Bld) 76.2 % Normal . [facility] Comment on above: Performed By: #### P T, BMP, PTT, CBC #### [address] NRBC% 0.1 /100{WBC} Normal 0-0.5 [facility] Comment on above: Performed By: #### P T, BMP, PTT, CBC #### [address] Platelet mean volume (Bld) [Entitic vol] 9.3 fL Normal 6.3-10.7 [facility] Comment on above: Performed By: #### P T, BMP, PTT, CBC #### [address] Platelets (Bld) [#/Vol] 216 10*3/uL Normal 150-450 [facility] Comment on above: Performed By: #### P T, BMP, PTT, CBC #### [address] RBC (Bld) [#/Vol] 3.73 10*6/uL Normal 3.60-5.00 [facility] Comment on above: Performed By: #### P T, BMP, PTT, CBC #### [address] WBC (Bld) [#/Vol] 12.8 10*3/uL High 3.8-11.6 [facility] Comment on above: Performed By: #### P T, BMP, PTT, CBC #### [address] Creatinine [Mass/volume] in Serum or PlasmaOrdered By: Yaniv Natarajan on 05-21-2024 Creatinine [Mass/Vol] Creatinine [Mass/volume] in Serum or Plasma High 0.60-1.20 [facility] Eosinophils Auto (Bld) [#/Vo l]Ordered By: Yaniv Natarajan on 05-21-2024 Eosinophils (Bld) [#/Vol] Automated eosinophil count 0.0-0.45 [facility] Eosinophils/100 WBC Auto (Bl d)Ordered By: Yaniv Natarajan on 05-21-2024 Eosinophils/100 WBC (Bld) Automated eosinophil % . [facility] Erythrocyte distribution wid th Auto (RBC) [Ratio]Ordered By: Yaniv Natarajan on 05-21-2024 Erythrocyte distribution width (RBC) [Ratio] Erythrocyte distribution width [Ratio] by Automated count High 11.9-15.3 [facility] Glucose [Mass/volume] in Ser um or PlasmaOrdered By: Yaniv Natarajan on 05-21-2024 Glucose [Mass/Vol] Glucose [Mass/volume] in Serum or Plasma High 70-100 [facility] Comment on above: ADA recommended refe rence rangeRandom Glucose Reference Range is dependent on time and content of last meal. Glucose of more than 200 mg/dL in a nonstressed, ambulatory subject supports the diagnosis of Diabetes Mellitus. Hematocrit Auto (Bld) [Volum e fraction]Ordered By: Yaniv Natarajan on 05-21-2024 Hematocrit (Bld) [Volume fraction] Hematocrit [Volume Fraction] of Blood by Automated count 34.0-46.4 [facility] Hemoglobin [Mass/volume] in BloodOrdered By: Yaniv Natarajan on 05-21-2024 Hemoglobin (Bld) [Mass/Vol] Hemoglobin [Mass/volume] in Blood 11.8-15.4 [facility] INR in Platelet poor plasma by Coagulation assayOrdered By: Yaniv Natarajan on 05-21-2024 INR Coag (PPP) [Relative time] INR in Platelet poor plasma by Coagulation assay [facility] Comment on above: INR Therapeutic Rang e A) Pre- and Peroperative OAT started two weeks before surgery. NOT HIP SURGERY: 1.5 - 2.5 HIP SURGERY: 2 - 3B) Primary and secondary prevention of venous THROMBOSIS: 2 - 3C) Active venous thrombosis, pulmonary embolismand prevention of recurrent venous thrombosis: 2 - 3D) Prevention of arterial thromboembolismincluding patients with mechanical heart valves: 3 - 4.5 Leukocytes [#/volume] correc suzi for nucleated erythrocytes in Blood by Automated counOrdered By: Yaniv Natarajan on 05-21-2024 WBC corrected for nucl RBC Auto (Bld) [#/Vol] Leukocytes [#/volume] corrected for nucleated erythrocytes in Blood by Automated coun High 3.8-11.6 [facility] Lymphocytes Auto (Bld) [#/Vo l]Ordered By: Yaniv Natarajan on 05-21-2024 Lymphocytes (Bld) [#/Vol] Lymphocytes [#/volume] in Blood by Automated count 1.00-4.8 [facility] Lymphocytes/100 WBC Auto (Bl d)Ordered By: Yaniv Natarajan on 05-21-2024 Lymphocytes/100 WBC (Bld) Lymphocytes/100 leukocytes in Blood by Automated count . [facility] MCH Auto (RBC) [Entitic mass ]Ordered By: Yaniv Natarajan on 05-21-2024 MCH (RBC) [Entitic mass] MCH [Entitic mass] by Automated count 24.7-34.3 [facility] MCHC Auto (RBC) [Mass/Vol]Or dered By: Yaniv Natarajan on 05-21-2024 MCHC (RBC) [Mass/Vol] MCHC [Mass/volume] by Automated count 32.0-35.0 [facility] MCV Auto (RBC) [Entitic vol] Ordered By: Yaniv Natarajan on 05-21-2024 MCV (RBC) [Entitic vol] MCV [Entitic volume] by Automated count 80-100 [facility] Monocytes Auto (Bld) [#/Vol] Ordered By: Yaniv Natarajan on 05-21-2024 Monocytes (Bld) [#/Vol] Automated blood monocyte count 0.0-0.8 [facility] Monocytes/100 WBC Auto (Bld) Ordered By: Yaniv Natarajan on 05-21-2024 Monocytes/100 WBC (Bld) Automated monocyte % . [facility] Neutrophils Auto (Bld) [#/Vo l]Ordered By: Yaniv Natarajan on 05-21-2024 Neutrophils (Bld) [#/Vol] Neutrophils [#/volume] in Blood by Automated count High 1.8-7.7 [facility] Neutrophils/100 WBC Auto (Bl d)Ordered By: Yaniv Natarajan on 05-21-2024 Neutrophils/100 WBC (Bld) Automated neutrophil % . [facility] No Panel InformationOrdered By: Yaniv Natarajan on 05-21-2024 Estimated GFR (CKD-EPI) 29.063 mL/Min [facility] Creatinine Clearance (Chem N/A [facility] Nucleated erythrocytes [Pres ence] in Blood by Automated countOrdered By: Yaniv Natarajan on 05-21-2024 Nucleated RBC Auto Ql (Bld) Nucleated erythrocytes [Presence] in Blood by Automated count 0-0.5 [facility] Partial Thromboplastin Timeo n 05-21-2024 aPTT Coag (Bld) [Time] 29.9 s Normal 25.1-36.5 [facility] Comment on above: Result Comment: A he matocrit value greater than 55% may lead to inaccurate results in coagulation testing. Patients having hematocrit values >55% require a special collection tube for coagulation studies. Please contact the laboratory at [phone] for redraw instructions. PERFORMED BY: [place] [address] PATHOLOGIST PACK PULLER CORAL BECKETT M.D. Performed By: #### P T, BMP, PTT, CBC #### [address] Platelet mean volume Auto (B ld) [Entitic vol]Ordered By: Yaniv Natarajan on 05-21-2024 Platelet mean volume (Bld) [Entitic vol] Platelet mean volume [Entitic volume] in Blood by Automated count 6.3-10.7 [facility] Platelets Auto (Bld) [#/Vol] Ordered By: Yaniv Natarajan on 05-21-2024 Platelets (Bld) [#/Vol] Platelets [#/volume] in Blood by Automated count 150-450 [facility] Potassium [Moles/volume] in Serum or PlasmaOrdered By: Yaniv Natarajan on 05-21-2024 Potassium [Moles/Vol] Potassium [Moles/volume] in Serum or Plasma 3.5-5.1 [facility] Prothrombin Time INRon 05-21 INR Coag (PPP) [Relative time] 1.0 {INR} Normal [facility] Comment on above: Result Comment: INR Therapeutic Range A) Pre- and Peroperative OAT started two weeks before surgery. NOT HIP SURGERY: 1.5 - 2.5 HIP SURGERY: 2 - 3 B) Primary and secondary prevention of venous THROMBOSIS: 2 - 3 C) Active venous thrombosis, pulmonary embolism and prevention of recurrent venous thrombosis: 2 - 3 D) Prevention of arterial thromboembolism including patients with mechanical heart valves: 3 - 4.5 Performed By: #### P T, BMP, PTT, CBC #### [facility] [address] PT Coag (PPP) [Time] 11.1 s Normal 9.0-12.9 [facility] Comment on above: Result Comment: A he matocrit value greater than 55% may lead to inaccurate results in coagulation testing. Patients having hematocrit values >55% require a special collection tube for coagulation studies. Please contact the laboratory at [phone] for redraw instructions. Performed By: #### P T, BMP, PTT, CBC #### [facility] [address] [place] [id number] [facility] Prothrombin time (PT)Ordered By: Yaniv Natarajan on 05-21-2024 PT Coag (PPP) [Time] Prothrombin time (PT) 9.0-12.9 [facility] Comment on above: A hematocrit value g reater than 55% may lead to inaccurate results in coagulation testing. Patients having hematocrit values >55% require a special collection tube for coagulation studies. Please contact the laboratory at [phone] for redraw instructions. RBC Auto (Bld) [#/Vol]Ordere d By: Yaniv Natarajan on 05-21-2024 RBC (Bld) [#/Vol] Erythrocytes [#/volume] in Blood by Automated count 3.60-5.00 [facility] Serum or plasma anion gap de terminationOrdered By: Yaniv Natarajan on 05-21-2024 Anion gap [Moles/Vol] Serum or plasma anion gap determination 6.0-15.0 [facility] Sodium [Moles/volume] in Ser um or PlasmaOrdered By: Yaniv Natarajan on 05-21-2024 Sodium [Moles/Vol] Sodium [Moles/volume] in Serum or Plasma Low 136-145 [facility] Urea nitrogen [Mass/volume] in Serum or PlasmaOrdered By: Yaniv aNtarajan on 05-21-2024 Urea nitrogen [Mass/Vol] Urea nitrogen [Mass/volume] in Serum or Plasma High 7-25 [facility] WBC Auto (Bld) [#/Vol]Ordere d By: Yaniv Natarajan on 05-21-2024 WBC (Bld) [#/Vol] Leukocytes [#/volume] in Blood by Automated count High 3.8-11.6 [facility] aPTT in Platelet poor plasma by Coagulation assayOrdered By: Yaniv Natarajan on 05-21-2024 aPTT Coag (PPP) [Time] Activated partial thromboplastin time (aPTT) in platelet poor plasma by coagulation a 25.1-36.5 [facility] Comment on above: A hematocrit value g reater than 55% may lead to inaccurate results in coagulation testing. Patients having hematocrit values >55% require a special collection tube for coagulation studies. Please contact the laboratory at [phone] for redraw instructions. Laboratory - Chemistry and C hemistry - challengeon 04-07-2024 Bilirubin Ql (U) Negative [facility] Glucose (U) [Mass/Vol] Negative [facility] Ketones Ql (U) Negative [facility] pH (U) 7.0 [pH] [facility] Specific gravity (U) [Rel density] 1.010 [facility] Urobilinogen (U) [Mass/Vol] 0.2 mg/dL [facility] Laboratory - Specimen inform ationon 04-07-2024 Appearance (U) cloudy [facility] Color (U) yellow [facility] Laboratory - Urinalysison Leukocyte esterase Test strip Ql (U) large [facility] Nitrite Ql (U) Positive [facility] Protein Ql (U) 30 [facility] No Panel Informationon 04-07 Urine Occult Blood small [facility] Urine Cultureon 04-07-2024 Bacteria identified Cx Nom (U) 75,000 colonies/ml mixed bacterial skin contaminants 2 Days PERFORMED BY: [facility] [address] [place] [address] PATHOLOGIST PACK PULLER CORAL BECKETT M.D. Normal [facility] Comment on above: Performed By: #### C UU #### [facility] [address] Urine cultureOrdered By: Sulema Best on 04-07-2024 Bacteria identified Cx Nom (U) Urine culture [facility] Immunofixation for Urineon 0 03-19-2024 Interpretation Immunofixation (U) [Interp] Comment . [facility] Comment on above: No monoclonality det ected.Performed at: [facility] [id number] Director: Mohan Talbert PhD, Phone: [phone] Interpretation Immunofixation (U) [Interp] Immunofixation for Urine . [facility] Comment on above: No monoclonality det ected.Performed at: [facility] [address] [id number] Director: Mohan Talbert PhD, Phone: [phone] Laboratory - Chemistry and C hemistry - challengeon 03-19-2024 Bilirubin Ql (U) Negative NEGATIVE [facility] Glucose (U) [Mass/Vol] Negative NEGATIVE [facility] Ketones Ql (U) Negative NEGATIVE [facility] pH (U) 6.0 [pH] 5.0-9.0 [facility] Specific gravity (U) [Rel density] 1.010 1.005-1.025 [facility] Urobilinogen Qn (U) 0.2 {Joe'U}/dL 0.2-1.0 [facility] Laboratory - Specimen inform ationon 03-19-2024 Appearance (U) SL CLOUDY CLEAR [facility] Color (U) YELLOW YELLOW [facility] Laboratory - Urinalysison Leukocyte esterase Test strip Ql (U) LARGE Abnormal NEGATIVE [facility] Mucus Ql (Urine sed) NONE SEEN NONE SEEN [facility] Nitrite Ql (U) Positive Abnormal NEGATIVE [facility] Protein (U) [Mass/Vol] 77.9 mg/dL High <=11.9 [facility] Protein Ql (U) 100 mg/dL Abnormal NEG/TRACE [facility] No Panel Informationon 03-19 Urine Bacteria MODERATE #/HPF Abnormal NONE SEEN [facility] Urine Occult Blood SMALL Abnormal NEGATIVE [facility] Urine Other Casts NONE SEEN #/LPF NONE SEEN [facility] Urine Other Crystals None Seen #/HPF None Seen [facility] Urine Random Creatinine 25.17 mg/dL 20.00-300.00 [facility] Urine RBC 2-5 #/HPF Abnormal 0-2 [facility] Urine Squamous Epithelial Cells FEW #/LPF Abnormal NONE/RARE [facility] Urine WBC >100 #/HPF Abnormal NONE SEEN [facility] Urine protein/creatinine rat ioon 03-19-2024 Protein/Creatinine (U) [Ratio] 3.09 [facility] Protein/Creatinine (U) [Ratio] Urine protein/creatinine ratio [facility] Albumin [Mass/volume] in Ser um or Plasmaon 03-17-2024 Albumin [Mass/Vol] 3.2 g/dL 2.9-4.4 [facility] Albumin [Mass/Vol] Albumin [Mass/volume] in Serum or Plasma 2.9-4.4 [facility] Erythrocyte distribution wid th Auto (RBC) [Ratio]on 03-17-2024 Erythrocyte distribution width (RBC) [Ratio] 15.3 % High 11.0-15.0 [facility] Erythrocyte distribution width (RBC) [Ratio] Erythrocyte distribution width [Ratio] by Automated count High 11.0-15.0 [facility] Estimated glomerular filtrat ion rate (GFR) non- Americanon 03-17-2024 GFR/1.73 sq M.predicted among non-blacks MDRD (S/P/Bld) [Vol rate/Area] 29 mL/min/{1.73_m2} Low >=60 [facility] GFR/1.73 sq M.predicted among non-blacks MDRD (S/P/Bld) [Vol rate/Area] Estimated glomerular filtration rate (GFR) non- Low >=60 [facility] Hematocrit Auto (Bld) [Volum e fraction]on 03-17-2024 Hematocrit (Bld) [Volume fraction] 37.9 % 36.0-48.0 [facility] Hematocrit (Bld) [Volume fraction] Hematocrit [Volume Fraction] of Blood by Automated count 36.0-48.0 [facility] Hemoglobin [Mass/volume] in Bloodon 03-17-2024 Hemoglobin (Bld) [Mass/Vol] 11.6 g/dL Low 12.0-16.0 [facility] Hemoglobin (Bld) [Mass/Vol] Hemoglobin [Mass/volume] in Blood Low 12.0-16.0 [facility] IgA [Mass/volume] in Serum o r Plasmaon 03-17-2024 IgA [Mass/Vol] 366 mg/dL 64-422 [facility] IgA [Mass/Vol] IgA [Mass/volume] in Serum or Plasma 64-422 [facility] IgG [Mass/volume] in Serum o r Plasmaon 03-17-2024 IgG [Mass/Vol] 1043 mg/dL 586-1602 [facility] IgG [Mass/Vol] IgG [Mass/volume] in Serum or Plasma 586-1602 [facility] IgM [Mass/volume] in Serum o r Plasmaon 03-17-2024 IgM [Mass/Vol] 87 mg/dL 26-217 [facility] IgM [Mass/Vol] IgM [Mass/volume] in Serum or Plasma 26-217 [facility] Immunoglobulin light chains. kappa.free [Mass/volume] in Serumon 03-17-2024 Immunoglobulin light chains.kappa.free (S) [Mass/Vol] 112.4 mg/L Abnormal 3.3-19.4 [facility] Immunoglobulin light chains.kappa.free (S) [Mass/Vol] Immunoglobulin light chains.kappa.free [Mass/volume] in Serum Abnormal 3.3-19.4 [facility] Immunoglobulin light chains. kappa.free/Immunoglobulin light chains.lambda.free [Radha 03-17-2024 Immunoglobulin light chains.kappa.free/I mmunoglobulin light chains.lambda.free (S) [Mass ratio] 1.84 Abnormal 0.26-1.65 [facility] Comment on above: Performed at: [address] [id number] Director: Mohan Talbert PhD, Phone: [phone] Immunoglobulin light chains.kappa.free/I mmunoglobulin light chains.lambda.free (S) [Mass ratio] Immunoglobulin light chains.kappa.free/I mmunoglobulin light chains.lambda.free [Mass Abnormal 0.26-1.65 [facility] Comment on above: Performed at: - [facility] [id number] [place], [place] [id number] Director: Mohan Talbert PhD, Phone: [phone] Immunoglobulin light chains. lambda.free [Mass/volume] in Serum or Plasmaon 03-17-2024 Immunoglobulin light chains.lambda.free [Mass/Vol] 61.0 mg/L Abnormal 5.7-26.3 [facility] Immunoglobulin light chains.lambda.free [Mass/Vol] Immunoglobulin light chains.lambda.free [Mass/volume] in Serum or Plasma Abnormal 5.7-26.3 [facility] Iron binding capacity [Mass/ volume] in Serum or Plasmaon 03-17-2024 Iron binding capacity [Mass/Vol] 256.0 ug/dL 250.0-450.0 [facility] Iron binding capacity [Mass/Vol] Iron binding capacity [Mass/volume] in Serum or Plasma 250.0-450.0 [facility] Iron saturation [Mass Fracti on] in Serum or Plasmaon 03-17-2024 Iron saturation [Mass fraction] 25.4 % [facility] Iron saturation [Mass fraction] Iron saturation [Mass Fraction] in Serum or Plasma [facility] Laboratory - Chemistry and C hemistry - challengeon 03-17-2024 Albumin [Mass/Vol] 3.1 g/dL Low 3.4-5.0 [facility] Calcium [Mass/Vol] 9.8 mg/dL 8.5-10.1 [facility] Chloride [Moles/Vol] 100 mmol/L 98-107 [facility] CO2 [Moles/Vol] 29.6 mmol/L 21.0-32.0 [facility] Cobalamin (Vitamin B12) [Mass/Vol] 456 pg/mL 232-1245 [facility] Comment on above: Performed at: - [facility] [id number] [place], [place] [id number] Director: Mohan Talbert PhD, Phone: [phone] Creatinine [Mass/Vol] 1.71 mg/dL High 0.55-1.02 [facility] Ferritin [Mass/Vol] 174.0 ng/mL 8.0-252.0 [facility] GFR/1.73 sq M.predicted MDRD (S/P/Bld) [Vol rate/Area] 35 mL/min/{1.73_m2} Low >=60 [facility] Glucose [Mass/Vol] 137 mg/dL High 74-106 [facility] Iron [Mass/Vol] 65.0 ug/dL 50.0-170.0 [facility] Magnesium [Mass/Vol] 1.9 mg/dL 1.8-2.4 [facility] Potassium [Moles/Vol] 4.1 mmol/L 3.5-5.1 [facility] Sodium [Moles/Vol] 140 mmol/L 136-145 [facility] Urate [Mass/Vol] 4.6 mg/dL 2.6-6.0 [facility] Urea nitrogen [Mass/Vol] 37.0 mg/dL High 7.0-18.0 [facility] Urea nitrogen/Creatinine [Mass ratio] 21.6 mg/mg [facility] Leukocytes [#/volume] correc suzi for nucleated erythrocytes in Blood by Automated counon 03-17-2024 WBC corrected for nucl RBC Auto (Bld) [#/Vol] 9.1 10 3/uL 4.0-11.0 [facility] WBC corrected for nucl RBC Auto (Bld) [#/Vol] Leukocytes [#/volume] corrected for nucleated erythrocytes in Blood by Automated coun 4.0-11.0 [facility] MCH Auto (RBC) [Entitic mass ]on 03-17-2024 MCH (RBC) [Entitic mass] 31.2 pg 26.7-34.0 [facility] MCH (RBC) [Entitic mass] MCH [Entitic mass] by Automated count 26.7-34.0 [facility] MCHC Auto (RBC) [Mass/Vol]on 03-17-2024 MCHC (RBC) [Mass/Vol] 30.6 g/dL 29.9-35.2 [facility] MCHC (RBC) [Mass/Vol] MCHC [Mass/volume] by Automated count 29.9-35.2 [facility] MCV Auto (RBC) [Entitic vol] on 03-17-2024 MCV (RBC) [Entitic vol] 101.9 fL High 81.0-99.0 [facility] MCV (RBC) [Entitic vol] MCV [Entitic volume] by Automated count High 81.0-99.0 [facility] No Panel Informationon 03-17 25-Hydroxy Vitamin D Total 91.3 ng/mL [facility] Comment on above: <20 ng/mL Vit D defi cient20-<30 ng/mL Vit D [id number] ng/mL Vit D sufficient>100 ng/mL Potential Toxicity Folate 19.10 ng/mL 8.60-58.90 [facility] Parathyroid Hormone (Intact) 28 pg/mL 15-65 [facility] Comment on above: Performed at: [facility] [address] Director: Mohan Talbert PhD, Phone: [phone] Phosphorus Level 3.6 mg/dL 2.6-4.7 [facility] Protein Electrophoresis M-Rafiq Not Observed g/dL Not Observed [facility] Protein Electrophoresis Note Comment . [facility] Comment on above: Protein electrophore sis scan will follow via computer,mail, or drafting layout man delivery. Platelet mean volume Auto (B ld) [Entitic vol]on 03-17-2024 Platelet mean volume (Bld) [Entitic vol] 11.5 fL 9.5-13.5 [facility] Platelet mean volume (Bld) [Entitic vol] Platelet mean volume [Entitic volume] in Blood by Automated count 9.5-13.5 [facility] Platelets Auto (Bld) [#/Vol] on 03-17-2024 Platelets (Bld) [#/Vol] 232 10 3/uL 150-450 [facility] Platelets (Bld) [#/Vol] Platelets [#/volume] in Blood by Automated count 150-450 [facility] Protein [Mass/volume] in Ser um or Plasmaon 03-17-2024 Protein [Mass/Vol] 6.9 g/dL 6.0-8.5 [facility] Protein [Mass/Vol] Protein [Mass/volume] in Serum or Plasma 6.0-8.5 [facility] RBC Auto (Bld) [#/Vol]on RBC (Bld) [#/Vol] 3.72 10 6/uL Low 4.20-5.40 [facility] RBC (Bld) [#/Vol] Erythrocytes [#/volume] in Blood by Automated count Low 4.20-5.40 [facility] Serum globulin measurement ( mass/volume)on 03-17-2024 Globulin (S) [Mass/Vol] 3.7 g/dL 2.2-3.9 [facility] Globulin (S) [Mass/Vol] Serum globulin measurement (mass/volume) 2.2-3.9 [facility] Serum or plasma albumin/glob ulin mass ratioon 03-17-2024 Albumin/Globulin [Mass ratio] 0.9 {ratio} 0.7-1.7 [facility] Albumin/Globulin [Mass ratio] Serum or plasma albumin/globulin mass ratio 0.7-1.7 [facility] Serum or plasma alpha 1 glob ulin measurement by electrophoresis (mass/volume)on 03-17-2024 Alpha 1 globulin Elph [Mass/Vol] 0.3 g/dL 0.0-0.4 [facility] Alpha 1 globulin Elph [Mass/Vol] Serum or plasma alpha 1 globulin measurement by electrophoresis (mass/volume) 0.0-0.4 [facility] Serum or plasma alpha 2 glob ulin measurement by electrophoresis (mass/volume)on 03-17-2024 Alpha 2 globulin Elph [Mass/Vol] 1.3 g/dL Abnormal 0.4-1.0 [facility] Alpha 2 globulin Elph [Mass/Vol] Serum or plasma alpha 2 globulin measurement by electrophoresis (mass/volume) Abnormal 0.4-1.0 [facility] Serum or plasma anion gap de terminationon 03-17-2024 Anion gap [Moles/Vol] 14.5 mmol/L [facility] Anion gap [Moles/Vol] Serum or plasma anion gap determination [facility] Serum or plasma beta globuli n measurement by electrophoresis (mass/volume)on 03-17-2024 Beta globulin Elph [Mass/Vol] 1.0 g/dL 0.7-1.3 [facility] Beta globulin Elph [Mass/Vol] Serum or plasma beta globulin measurement by electrophoresis (mass/volume) 0.7-1.3 [facility] Serum or plasma gamma globul in measurement by electrophoresis (mass/volume)on 03-17-2024 Gamma globulin Elph [Mass/Vol] 1.1 g/dL 0.4-1.8 [facility] Gamma globulin Elph [Mass/Vol] Serum or plasma gamma globulin measurement by electrophoresis (mass/volume) 0.4-1.8 [facility] Serum or plasma immunoelectr ophoresis interpretationon 03-17-2024 Interpretation IEP [Interp] Comment: . [facility] Comment on above: Presence of monoclon al protein is unclear at this time. Suggestrepeat in 3 to 6 months if clinically indicated. Interpretation IEP [Interp] Serum or plasma immunoelectrophores is interpretation . [facility] Comment on above: Presence of monoclon al protein is unclear at this time. Suggestrepeat in 3 to 6 months if clinically indicated. Troponin 1 Hr.on 03-17-2024 Troponin HS 70.30 pg/mL Abnormal 10.10-27.10 [facility] Comment on above: Order Comment: 1830 Result Comment: Crit ical Result Verified by Previous Result Called to Teo Patrick RN @1833 02/26/2024 [facility]CS The 95% CI (Confidence Interval) PPV (Positive Predictive Value) for myocardial infarction in females is 38 pg/mL, in males 51 pg/mL. The results should be used in conjunction with clinical conditions of myocardial infarction. (Access High Sensitivity Troponin I Instructions For Use, Yazmin Soraya, February 2018) Critical Result Verified by Previous Result The 95% CI (Confidence Interval) PPV (Positive Predictive Value) for myocardial infarction in females is 38 pg/mL, in males 51 pg/mL. The results should be used in conjunction with clinical conditions of myocardial infarction. (Access High Sensitivity Troponin I Instructions For Use, Yazmin Addison, February 2018) Performed By: #### [id number] #### [facility] [address] [place] [address] Coding Queryon 03-09-2024 Coding Query Coding Query -- From: Sagar ROB, Giovana To: KADE MARLOW, Allison; Cc: Tierra Elizalde; Sent: 03/09/2024 10:41:21 EDT ! Subject: Coding Query Due Date/Time: 03/10/2024 10:40:00 EDT Caller Name: LEXI TATUM; Caller Number: Giovanni , Chandra Documentation in the medical record indicates that this patient has been admitted with or diagnosed as having the following: Sepsis secondary to E. coli urinary tract infection The following is also documented in the medical record: dc summary-Hospital Course 78-year-old female with diabetes mellitus type 2, hypertension, coronary artery disease, chronic kidney disease stage III, peripheral artery disease, urethral stricture/hydroneph rosis status post stent placement presented with complaints of generalized weakness, chills, suprapubic pain. She was subsequently admitted to [facility] with acute metabolic encephalopathy secondary to sepsis secondary to E. coli urinary tract infection, acute kidney injury on chronic kidney disease secondary to ATN from sepsis and UTI, generalized weakness, elevated troponin secondary to type II non-ST segment elevation myocardial infarction and stage 1 coccyx decubitus ulcer. Based on your medical judgment, can you please clarify the relationship between the diagnosis and the device? [___]Infection due to implant (please specify type): [___]Infection due to other device: (please specify device): [___]There is no evidence of a relationship between the device and the diagnosis [___]Other (please specify): In responding to this request, please exercise your independent professional judgement. The fact that a question is asked does not imply that any particular answer is desired or expected. Thank you! Giovana [phone] -- From: KADE MARLOW, Allison To: Sagar ROB, Giovana; Sent: 03/09/2024 10:53:27 EDT Subject: RE: Coding Query Caller Name: LEXI TATUM; Caller Number: Giovanni , M E. coli urinary tract infection?secondary to ureteral stent. Present on admission. Thank you. Normal [facility] ED Note-Physicianon 03-04-20 ED Note-Physician ED Note-Physician Basic Information Time Seen: Teo Gupta PA-C 02/26/2024 17:30 Chief Complaint To ED for AMS. EMS found STEMI on EKG. EKG sent to ED and STEMI activated per ED physician. Pt only complaint of fatigue on arrival. Denies chest pain. History of Present Illness 78-year-old female comes to the ED as a STEMI alert. She presents from home via EMS. EMS states they were called for patient with altered mental status. They state patient has been awake and alert but does seem confused. I difficulty answering some questions such as her name and date. EKG was performed showing a ST elevation and STEMI alert was initiated. Upon arrival here patient states she feels very weak and fatigued but denies any acute chest pain or shortness of breath. She does states she has a cardiac history and follows with [facility] heart cardiology. She states she has had a stent placed as well as CABG. She states she always has an abnormal EKG. She denies any headache or visual changes. No nausea or vomiting or diaphoresis. Review of Systems A 10 point review of systems is negative except as noted above. Medical and Surgical History: Reviewed and noted Social history: Lives at home Tobacco: Denies Physical Exam Vitals & Measurements T: 38 ?C(Oral) HR: 78(Peripheral) RR: 16 BP: 137/73 SpO2: 96% HT: 150 cm WT: 76.4 kg BMI: 33.96 Nurses notes and vital signs reviewed and patient is not hypoxic. General: Awake and alert, appears weak, no distress Skin: Warm, dry, no pallor noted. Head: Atraumatic. Neck: No JVD. Eye: Normal conjunctiva. Ears, Nose, Mouth, and Throat: Moist mucous membranes Cardiovascular: Strong distal pulses. Chest wall: Respiratory: Respirations are nonlabored. Back: Normal range of motion, no CVA tenderness. Musculoskeletal: Normal ROM with no gross deformity. Gastrointestinal: Soft and nontender. Urological: Neurological: Awake and alert. No focal deficits. Follows commands. GCS 15. NIHSS 0 performed at 1730 Psychiatric: Cooperative. Medical Decision Making Patient presents with generalized weakness and concerns for STEMI. STEMI alert was initially initiated, however cardiology was able to review previous EKGs and her findings today are consistent with previous. The patient denies any acute chest pain or shortness of breath. She was found to have low-grade fever at 38. Chest x-ray with no acute findings. Urinalysis is pending. With the concerns of altered mental status did add a CT of the brain as well. She is awake and alert here. She has no neurological deficits. Case discussed with the hospitalist for admission. Assessment/Plan 1. Sepsis (A41.9: Sepsis, unspecified organism) 2. Urinary tract infection (N39.0: Urinary tract infection, site not specified) 3. Acute kidney injury (N17.9: Acute kidney failure, unspecified) 4. Generalized weakness (R53.1: Weakness) 5. Diabetes (E11.9: Type 2 diabetes mellitus without complications) 6. Pure hypercholesterolemi a (E78.00: Pure hypercholesterolemi a, unspecified) 7. Class 3 severe obesity with serious comorbidity in adult (E66.01: Morbid (severe) obesity due to excess calories) 8. Coronary artery disease (I25.10: Atherosclerotic heart disease of seminole coronary artery without angina pectoris) 9. On deep vein thrombosis (DVT) prophylaxis (Z79.899: Other intermediate teacher (current) drug therapy) Orders: Sodium Chloride 0.9% intravenous solution 1,000 mL, 1,000 mL, IV, KVO, STAT, Start date 02/26/24 17:31:00 EDT, Total volume (mL): 1,000, 75 kg, 1.77, m2 Basic Metabolic Panel BB Draw & Hold CBC w/ Auto Diff Communication Order Communication Order CT Head or Brain w/o Contrast ED Cardiac Monitoring eGFR Extra Brown Tube Extra SST Tube Oxygen Therapy PT & PTT Troponin 0 Hr. Troponin 1 Hr. Troponin 3 Hr. Troponin 6 Hr. UA with Cult Rflx XR Chest Single View Disposition Plan Patient Discharge Condition Disposition: Admitted to the hospital Condition: Improved and stable Counseled: Patient and/or family were counseled to workup, results, treatment plan and follow-up recommendations Discharge Prescription List Prescriptions No active prescription medications Follow-up No qualifying data available Attestation I performed a substantive part of the MDM during the patient?s E/M visit. I personally made or approved the documented management plan and acknowledge its risk of complications. (Independent Interpretation) My (EKG/X-Ray/US/CT) interpretation as above. (Discussion) Management/test interpretation discussed with APC. This report was transcribed using voice recognition software. Every effort was made to ensure accuracy, however, inadvertently computerized medical registrar mistakes may be present. Appropriate healthcare PPE was used in evaluating this patient. Problem List/Past Medical History Ongoing Chronic kidney disease, stage 3 unspecified Class 3 severe obesity with serious comorbidity in adult Diabetic pe (more content not included)... Normal [facility] Comment on above: Result Comment: Elec tronically Signed By: Teo Gupta PA-C\.br\Date and Time Signed: 02/26/24 19:01 EDT\.br\Electronically Co-Signed By: Baljit Hawkins MD\.br\Date and Time Co-Signed: 03/04/24 22:01 EDT Troponin 1 Hr.on 03-03-2024 Troponin HS 70.30 pg/mL Abnormal 10.10-27.10 [facility] Comment on above: Order Comment: 1829 Result Comment: Crit ical Result Verified by Previous Result Called to Teo Patrick RN @1833 02/26/2024 BCS The 95% CI (Confidence Interval) PPV (Positive Predictive Value) for myocardial infarction in females is 38 pg/mL, in males 51 pg/mL. The results should be used in conjunction with clinical conditions of myocardial infarction. (Access High Sensitivity Troponin I Instructions For Use, Agendia, February 2018) Critical Result Verified by Previous Result The 95% CI (Confidence Interval) PPV (Positive Predictive Value) for myocardial infarction in females is 38 pg/mL, in males 51 pg/mL. The results should be used in conjunction with clinical conditions of myocardial infarction. (Access High Sensitivity Troponin I Instructions For Use, Agendia, February 2018) Performed By: #### 1 [id number] #### [facility] [address] [id number] General Message Officeon Ed4U Message Office General Message Office --- --- --- --- --- --- --- --- --- From: Nory Nunez To: LEXI TATUM Sent: 03/01/24 02:30:40 AM EDT Subject: Discharge Summary Ready to View A summary regarding your recent visit is available in the Documents section of your health record. Normal [facility] C Urineon 02-29-2024 Bacteria identified Cx Nom (U) Microbiology PROCEDURE: Urine Culture [R1] SOURCE: U CleanCatch BODY SITE: COLLECTED DATE/TIME: 02/27/2024 03:19 EDT RECEIVED DATE/TIME: 02/27/2024 04:04 EDT START DATE/TIME: 02/27/2024 04:12 EDT FREE TEXT SOURCE: Allison CHANCE MD, MD, Mbanefo FINAL REPORTS Final Report [] Verified Date/Time: 02/29/2024 10:16 EDT 20,000 cfu/ml Escherichia coli SUSCEPTIBILITY RESULTS LEGEND: S=Susceptible, N/R=Not Reported, Blank=Data not available, or drug not advisable or tested, I=Intermediate, ESBL=Extended spectrum beta-lactamase, R=Resistant, TFG=Thymidine-depen dent strain, EVERETT=Beta-lactamase positive, JOHAN=mcg/m;(mg/L), S*=Predicted susceptible interp, R*=Predicted resistant interp EC Antibiotic JOHAN Dilutn JOHAN Interp Ampicillin <=8 S Ampicillin/ <=8/4 S Sulbactam Aztreonam <=4 S Cefazolin <=2 S Cefepime <=2 S Ceftazidime <=1 S Ceftazidime/ <=8 S Avibactam Ceftriaxone <=1 S Cefuroxime <=4 S Ciprofloxacin <=0.25 S Ertapenem <=0.5 S Gentamicin <=2 S Levofloxacin <=0.5 S Meropenem <=1 S Nitrofurantoin <=32 S Piperacillin/ <=8 S Tazobactam Tetracycline <=4 S Tobramycin <=2 S Trimethoprim/ <=2/38 S Sulfa Performing Locations R1: This test was performed at: [facility], [address] [place] [address], [id number] , , [facility] Comment on above: Performed By: #### 2 [id number] #### [facility] [address] [place] [id number] CHEMISTRYOrdered By: Elie DECKER User on 02-29-2024 Glucose [Mass/Vol] 137 mg/dL High 55 - 99 mg/dL FTM C POC Subsection Comment on above: Result Comment: Tomas PERLA POC Device SN [id number] Invalid Interpretation Code [facility] POC Subsection POC User ID [id number] 1 Invalid Interpretation Code FT POC Subsection POC Username JIE MONK Invalid Interpretation Code FT POC Subsection Glucose [Mass/Vol] 130 mg/dL High 55 - 99 mg/dL FTM C POC Subsection Comment on above: Result Comment: Tomas saleem RN/ POC Device SN [id number] 1 Invalid Interpretation Code FT POC Subsection POC User ID [id number] 1 Invalid Interpretation Code [facility] POC Subsection POC Username JIE MONK Invalid Interpretation Code FT POC Subsection Capillary Glucose POCon 02-11 Glucose [Mass/Vol] 137 mg/dL High 55-99 [facility] Comment on above: Result Comment: Tomas saleem RN/ Performed By: #### 2 [id number] #### [facility] [address] [place] [address] Glucose [Mass/Vol] 130 mg/dL High 55-99 [facility] Comment on above: Result Comment: Tomas saleem RN/ Performed By: #### 2 [id number] #### [facility] [address] [place] [address] Discharge Note-Nursingon Discharge Note-Nursing Discharge Note-Nursing LEXI TATUM :1945 Visit Date:02/26/2024 Inpatient Discharge Instructions Your Care Team Admitting Physician - KADE MARLOW, Allison Reason for Your Visit Fatigue Your Diagnosis Acute metabolic encephalopathy Sepsis Urinary tract infection Acute kidney injury Elevated troponin Hypoglycemia Generalized weakness Decubitus ulcer of coccygeal region, stage 1 Diabetes CKD stage 3b, 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 Pure hypercholesterolemi a Class 3 severe obesity with serious comorbidity in adult Coronary artery disease On deep vein thrombosis (DVT) prophylaxis Chest pain Tests Performed CT Head or Brain w/o Contrast XR Chest Single View This Is Your Medications List Misc Prescription (Misc DME Prescription) acetaminophen (Tylenol) allopurinol (allopurinol 300 mg Tab) ascorbic acid (Vitamin C 500 mg oral tablet, chewable) aspirin (aspirin 81 mg Oral EC Tab) carvedilol (carvedilol 25 mg Tab) cephalexin (Keflex 500 mg Cap) cholecalciferol (cholecalciferol 1000 intl units oral capsule) clopidogrel (Plavix 75 mg Tab) docusate (Colace) ergocalciferol (Vitamin D Oral) ferrous sulfate (ferrous sulfate 325 mg oral enteric coated tablet) furosemide (furosemide 40 mg Tab) gabapentin (gabapentin 300 mg Cap) insulin degludec (Tresiba FlexTouch 100 units/mL subcutaneous solution) insulin glargine (Basaglar KwikPen 100 units/mL subcutaneous solution) insulin lispro (HumaLOG 100 units/mL injectable solution) oxybutynin (oxybutynin 10 mg ER Tab) potassium chloride (potassium chloride 10 mEq ER Tab) rosuvastatin (rosuvastatin 5 mg Tab) Procedure History Cataract surgery, section, History of coronary artery bypass grafting... Discharge Vitals Temperature (Axillary) 36.8 ?C Heart Rate (Monitored) 72 Respiratory Rate 18 Respiratory Rate 18 Blood Pressure 115/63 Weight 74.9 kg What to do next Instructions From Your Doctor Event Name Event Result Discharge Activity Ambulate as tolerated, Activity as tolerated Discharge Diet(s) Calorie Controlled- 1800 Calorie Diet Pending Diagnostic Test Results None New Follow Up Appointments after Discharge Follow Up with STEFAN BEST When: 03/05/2024 01:45 PM EDT Where: [address] [place], [place] [id number]- Business (1) Medications What How Much When Why Instructions Next Dose New cephalexin (Keflex 500 mg Cap) 1 Capsules By Mouth 3 times a day Urinary tract infection Duration: 4 Days Pickup at [facility] 03/01/2024 @ 9:00 AM Unchanged acetaminophen (Tylenol) 650 Milligram By Mouth As needed for pain Unchanged allopurinol (allopurinol 300 mg Tab) 1 Tablets By Mouth Every day 03/01/2024 @ 9:00 AM Unchanged ascorbic acid (Vitamin C 500 mg oral tablet, chewable) 1 Tablets Chewed Every day 03/01/2024 @ 9:00 AM Unchanged aspirin (aspirin 81 mg Oral EC Tab) Oral 03/01/2024 @ 9:00 AM Unchanged carvedilol (carvedilol 25 mg Tab) 1 Tablets 2 times a day Oral 02/29/2024 @ 9:00 PM Unchanged cholecalciferol (cholecalciferol 1000 intl units oral capsule) 1 Capsules By Mouth Every day Oral 03/01/2024 @ 9:00 AM Unchanged clopidogrel (Plavix 75 mg Tab) 1 Tablets Every day Oral 03/01/2024 @ 9:00 AM Unchanged docusate (Colace) By Mouth Every day 03/01/2024 @ 9:00 AM Unchanged ergocalciferol (Vitamin D Oral) 50,000 International unit By Mouth Every day 03/01/2024 @ 9:00 AM Unchanged ferrous sulfate (ferrous sulfate 325 mg oral enteric coated tablet) 1 Tablets By Mouth Every other day 03/01/2024 @ 9:00 AM Unchanged furosemide (furosemide 40 mg Tab) 1 Tablets Every day 30 tab(s) 03/01/2024 @ 9:00 AM Unchanged gabapentin (gabapentin 300 mg Cap) 1 Capsules By Mouth 2 times a day Oral 02/29/2024 @ 9:00 PM Unchanged insulin degludec (Tresiba FlexTouch 100 units/ mL subcutaneous solution) 20 Units Subcutaneous As Directed using sliding scale as needed As directed Unchanged insulin glargine (Basaglar KwikPen 100 units/ mL subcutaneous solution) 50 Units Subcutaneous Every day 03/01/2024 @ 9:00 AM Unchanged insulin lispro (HumaLOG 100 units/ mL injectable solution) 20 Units Subcutaneous As Directed Chronic kidney disease, stage 3 unspecified as needed per sliding scale As directed Unchanged Misc Prescription (Misc DME Prescription) See instructions Type 1 diabetes True Metrix Test Strips Check AC&HS Unchanged oxybutynin (oxybutynin 10 mg ER Tab) 1 Tablets By Mouth Every day Wellness examination BMI 40.0-44.9, adult Former smoker Type 1 diabetes CKD (chronic kidney disease) Gout Pure hypercholesterolemi a Vitamin D deficiency Urinary incontinence 03/01/2024 @ 9:00 AM Unchanged potassium chloride (potassium chloride 10 mEq ER Tab) 1 Tablets By Mouth Every day Oral 03/01/2024 @ 9:00 AM Unchanged rosuvastatin (rosuvastatin 5 mg Tab) 1 Tablets By Mouth Every day 03/01/2024 @ 9:00 AM Pharmacy Information [facility]: [address] [facility] (more content not included)... Normal [facility] [id number] 02-29-2024 HbA1c (Bld) [Mass fraction] 7.4 % High <=5.9 [facility] Comment on above: Performed By: #### 7 [id number] #### [facility] [address] [place] [address] Inpatient Clinical Summaryon 02-29-2024 Inpatient Clinical Summary Inpatient Clinical Summary [address] [address] Clinical Summary Person Information: Name: LEXI TATUM Age: 78 Years : 1945 Sex: Female PCP: STEFAN BEST MD Marital Status: Race: White Ethnicity: Non- or Language: Mauritian Visit Id: Visit Reason: Chest pain; ALOC Speciality: Acuity: Enc Type: Inpatient Med Service: Medical Arrival: 02/26/2024 17:28:58 Discharge: Dispo Type: Admitted as IP to this Hosp Address: [address] [place] [id number] Provider Notes: Diagnosis: 1:Acute metabolic encephalopathy; 2:Sepsis; 3:Urinary tract infection; 4:Acute kidney injury; 5:Elevated troponin; 6:Hypoglycemia; 7:Generalized weakness; 8:Decubitus ulcer of coccygeal region, stage 1; 9:Diabetes; 10:CKD stage 3b, 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; 11:Pure hypercholesterolemi a; 12:Class 3 severe obesity with serious comorbidity in adult; 13:Coronary artery disease; 14:On deep vein thrombosis (DVT) prophylaxis Problems Active 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 Hydronephrosis Retroperitoneal fibrosis Chronic kidney disease, stage 3 unspecified Class 3 severe obesity with serious comorbidity in adult Type 1 diabetes mellitus with hypercholesterolemi a Long-term insulin use Flank pain Urinary incontinence Wellness examination Pure hypercholesterolemi a Osteoarthritis Gout Diabetic peripheral neuropathy Vitamin D deficiency Smoking Status: Former Smoker Functional Status: Sensory Deficits: History of Falls: Within last one year Mobility Assistance Prior to Admission: ADLs: Moderate assistance Current Level of Assistance for Self-Care/Mobility: Cognitive Status: Oriented x 3 Allergies atorvastatin (Myalgia) pravastatin (Unknown) Measurements: Height: 149.86 cm Weight: 74.9 kg Blood Pressure: 115 mmHg / 63 mmHg BMI: 33.71 kg/m2 Procedures No Procedures Documented Immunizations No Immunizations Documented This Visit Final Med List: acetaminophen (Tylenol) 650 Milligram By Mouth. allopurinol (allopurinol 300 mg Tab) 1 Tablets By Mouth every day. Refills: 1. ascorbic acid (Vitamin C 500 mg oral tablet, chewable) 1 Tablets Chewed every day. aspirin (aspirin 81 mg Oral EC Tab) Oral. carvedilol (carvedilol 25 mg Tab) 1 Tablets 2 times a day. Oral. cephalexin (Keflex 500 mg Cap) 1 Capsules By Mouth 3 times a day for 4 Days. Refills: 0. cholecalciferol (cholecalciferol 1000 intl units oral capsule) 1 Capsules By Mouth every day. Oral. Refills: 1. clopidogrel (Plavix 75 mg Tab) 1 Tablets every day. Oral. docusate (Colace) By Mouth every day. ergocalciferol (Vitamin D Oral) 50,000 International unit By Mouth every day. ferrous sulfate (ferrous sulfate 325 mg oral enteric coated tablet) 1 Tablets By Mouth every other day. furosemide (furosemide 40 mg Tab) 1 Tablets every day. 30 tab(s). gabapentin (gabapentin 300 mg Cap) 1 Capsules By Mouth 2 times a day. Oral. Refills: 1. insulin degludec (Tresiba FlexTouch 100 units/mL subcutaneous solution) 20 Units Subcutaneous As Directed. using sliding scale as needed. Refills: 1. insulin glargine (Basaglar KwikPen 100 units/mL subcutaneous solution) 50 Units Subcutaneous every day. Refills: 2. insulin lispro (HumaLOG 100 units/mL injectable solution) 20 Units Subcutaneous As Directed. as needed per sliding scale. Refills: 2. Misc Prescription (Misc DME Prescription) True Metrix Test Strips Check AC&HS. Refills: 3. oxybutynin (oxybutynin 10 mg ER Tab) 1 Tablets By Mouth every day. Refills: 0. potassium chloride (potassium chloride 10 mEq ER Tab) 1 Tablets By Mouth every day. Oral. Refills: 5. rosuvastatin (rosuvastatin 5 mg Tab) 1 Tablets By Mouth every day. Refills: 1. Care Team Members: Attending Physician: Allison CHANCE MD Consulting Physician: Referring Physician: Follow up: With: Address: When: STEFAN BEST [address] [place] [address] [facility] (1) 03/05/2024 1:45 PM Patient Education Information: Normal [facility] Inpatient Patient Summaryon 02-29-2024 Inpatient Patient Summary Inpatient Patient Summary [address] [address] Patient Discharge Instructions PERSON INFORMATION Name: LEXI TATUM Date of : 1945 Current Date: 02/29/2024 13:38:50 PHYSICIANS Admitting Physician: Allison CHANCE MD Primary Care Physician: STEFAN BEST MD PCP Comment: Discharge Diagnosis: 1:Acute metabolic encephalopathy; 2:Sepsis; 3:Urinary tract infection; 4:Acute kidney injury; 5:Elevated troponin; 6:Hypoglycemia; 7:Generalized weakness; 8:Decubitus ulcer of coccygeal region, stage 1; 9:Diabetes; 10:CKD stage 3b, 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; 11:Pure hypercholesterolemi a; 12:Class 3 severe obesity with serious comorbidity in adult; 13:Coronary artery disease; 14:On deep vein thrombosis (DVT) prophylaxis Condition at Discharge: Improved LEXI TATUM has been given the following list of follow-up instructions, prescriptions, and patient education materials: PATIENT FOLLOW-UP INFORMATION Diet: Calorie Controlled- 1800 Calorie Diet Discharge Activity: Ambulate as tolerated, Activity as tolerated Discharge Restrictions: Wound Care Instructions: Remove Your Dressing In Days Call Your Doctor For: IF UNABLE TO CONTACT YOUR PHYSICIAN AND YOU FEEL IT IS AN EMERGENCY, GO TO THE NEAREST EMERGENCY ROOM OR CALL 911 Home Treatment: Devices/Equipment: Walker - front wheeled Special Services: Additional Instructions: Primary Care Physician to provide the following pending test results: None Follow up: With: Address: When: STEFAN [facility]ST [address] [place] [address] Business (1) 03/05/2024 1:45 PM In the event that this physician does not participate in your insurance network, please consult with your insurance company to find a nearby participating provider. Comment: RC Mitchell SANDRA L, have received the attached patient education materials/instructi ons and have verbalized understanding: Patient Signature Date Clinican/Nurse Signature Date HERE ARE THE MEDICATION CHANGES THAT OCCURRED DURING YOUR HOSPITAL STAY New Medications [facility], [address], [place] [id number], [phone] cephalexin (Keflex 500 mg Cap) 1 Capsules By Mouth 3 times a day for 4 Days. Refills: 0. Last Dose: Next Dose: Medications to Continue with No Changes Other Medications acetaminophen (Tylenol) 650 Milligram By Mouth., take 2 at bedtime Last Dose: Next Dose: allopurinol (allopurinol 300 mg Tab) 1 Tablets By Mouth every day. Refills: 1. Last Dose: Next Dose: ascorbic acid (Vitamin C 500 mg oral tablet, chewable) 1 Tablets Chewed every day. Last Dose: Next Dose: aspirin (aspirin 81 mg Oral EC Tab) Oral. Last Dose: Next Dose: carvedilol (carvedilol 25 mg Tab) 1 Tablets 2 times a day. Oral. Last Dose: Next Dose: cholecalciferol (cholecalciferol 1000 intl units oral capsule) 1 Capsules By Mouth every day. Oral. Refills: 1. Last Dose: Next Dose: clopidogrel (Plavix 75 mg Tab) 1 Tablets every day. Oral. Last Dose: Next Dose: docusate (Colace) By Mouth every day. Last Dose: Next Dose: ergocalciferol (Vitamin D Oral) 50,000 International unit By Mouth every day. Last Dose: Next Dose: ferrous sulfate (ferrous sulfate 325 mg oral enteric coated tablet) 1 Tablets By Mouth every other day. Last Dose: Next Dose: furosemide (furosemide 40 mg Tab) 1 Tablets every day. 30 tab(s)., Responsible Provider: Tom Morales Last Dose: Next Dose: gabapentin (gabapentin 300 mg Cap) 1 Capsules By Mouth 2 times a day. Oral. Refills: 1. Last Dose: Next Dose: insulin degludec (Tresiba FlexTouch 100 units/mL subcutaneous solution) 20 Units Subcutaneous As Directed. using sliding scale as needed. Refills: 1. Last Dose: Next Dose: insulin glargine (Basaglar KwikPen 100 units/mL subcutaneous solution) 50 Units Subcutaneous every day. Refills: 2. Last Dose: Next Dose: insulin lispro (HumaLOG 100 units/mL injectable solution) 20 Units Subcutaneous As Directed. as needed per sliding scale. Refills: 2. Last Dose: Next Dose: Misc Prescription (Misc DME Prescription) True Metrix Test Strips Check AC&HS. Refills (more content not included)... Normal [facility] BMPon 02-28-2024 Anion gap [Moles/Vol] 12 mmol/L Normal -16 [facility] Comment on above: Performed By: #### 2 [id number] #### [facility] [address] [place] [address] Calcium [Mass/Vol] 8.8 mg/dL Low 8.9-11.1 [facility] Comment on above: Performed By: #### 2 [id number] #### [facility] [address] [place] [address] Chloride [Moles/Vol] 104 mmol/L Normal 101-111 [facility] Comment on above: Performed By: #### 2 [id number] #### [facility] [address] [place] [address] CO2 [Moles/Vol] 25 mmol/L Normal 21-31 [facility] Comment on above: Performed By: #### 2 [id number] #### [facility] [address] [facility] [address] Creatinine [Mass/Vol] 1.5 mg/dL High 0.5-1.3 [facility] Comment on above: Performed By: #### 2 [id number] #### [facility] [address] [place] [address] Glucose [Mass/Vol] 53 mg/dL Low 55-199 [facility] Comment on above: Performed By: #### 2 [id number] #### [facility] [address] [place] [address] Potassium [Moles/Vol] 4.5 mmol/L Normal 3.5-5.3 [facility] Comment on above: Performed By: #### 2 [id number] #### [facility] [address] [place] [address] Sodium [Moles/Vol] 136 mmol/L Normal 135-145 [facility] Comment on above: Performed By: #### 2 [id number] #### [facility] [address] [place] [address] Urea nitrogen [Mass/Vol] 36 mg/dL High 5-21 [facility] Comment on above: Performed By: #### 2 [id number] #### [facility] [address] [place] [address] Urea nitrogen/Creatinine [Mass ratio] 24 No Units High 10-20 [facility] Comment on above: Performed By: #### 2 [id number] #### [facility] [address] [place] [address] CHEMISTRYOrdered By: Lab ROP User on 02-28-2024 Glucose [Mass/Vol] 132 mg/dL High 55 - 99 mg/dL [facility] C POC Subsection Comment on above: Result Comment: Tomas saleem RN/ POC Device SN [id number] 1 Invalid Interpretation Code [facility] POC Subsection POC User ID [id number] 1 Invalid Interpretation Code [facility] POC Subsection POC Username ANTONELLA MUNGUIA Invalid Interpretation Code [facility] POC Subsection CHEMISTRYOrdered By: SYSTEM SYSTEM on 02-28-2024 Anion gap [Moles/Vol] 12 mmol/L Normal 6 - 16 mEq/L Rem[facility] Chem Calcium [Mass/Vol] 8.8 mg/dL Low 8.9 - 11.1 mg/dL Rem[facility] Chem Chloride [Moles/Vol] 104 mmol/L Normal 101 - 111 mmol/L Rem[facility] CO2 [Moles/Vol] 25 mmol/L Normal 21 - 31 mmol/L Remis ol Chem Creatinine [Mass/Vol] 1.5 mg/dL High 0.5 - 1.3 mg/dL Remisol Chem eGFR 35 mL/min/1.73 m2 Low >=59mL/min/1.73 m2 Remisol Chem Glucose [Mass/Vol] 53 mg/dL Low 55 - 199 mg/dL Re misol Chem Potassium [Moles/Vol] 4.5 mmol/L Normal 3.5 - 5.3 mmol/L Remisol Chem Sodium [Moles/Vol] 136 mmol/L Normal 135 - 145 mmol/L Remisol Chem Urea nitrogen [Mass/Vol] 36 mg/dL High 5 - 21 mg/dL Remisol Chem Urea nitrogen/Creatinine [Mass ratio] 24 mg/mg High 10 - 20 Rem[facility] Capillary Glucose POCon 02-11 Glucose [Mass/Vol] 132 mg/dL High 55-99 [facility] Comment on above: Result Comment: Tomas PERLA Performed By: #### 2 [id number] #### [facility] [address] [place] [address] Glucose [Mass/Vol] 118 mg/dL High 55-99 [facility] Comment on above: Result Comment: Tomas PERLA Performed By: #### 2 [id number] #### [facility] [address] [place] [address] Glucose [Mass/Vol] 229 mg/dL High 55-99 [facility] Comment on above: Result Comment: Tomas PERLA Performed By: #### 2 [id number] #### [facility] [address] [place] [address] Glucose [Mass/Vol] 229 mg/dL High 55-99 [facility] Comment on above: Performed By: #### 2 [id number] #### [facility] [address] [place] [address] Glucose [Mass/Vol] 56 mg/dL Normal 55-99 [facility] Comment on above: Result Comment: Tomas PERLA Performed By: #### 2 [id number] #### [facility] [address] [place] [address] Extra Coila 02-28-2024 WB Tube Collected Yes Invalid Interpretation Code [facility] Comment on above: Performed By: #### 1 [id number] #### [facility] [address] [place] [address] eGFRon 02-28-2024 eGFR 35 mL/min/1.73 m2 Low >=59 [facility] Comment on above: Order Comment: Order added by Discern Expert. Performed By: #### 1 [id number] #### [facility] [address] [place] [address] BMPon 02-27-2024 Anion gap [Moles/Vol] 12 mmol/L Normal 6-16 [facility] Comment on above: Performed By: #### 2 [id number] #### [facility] [address] [place] [address] Calcium [Mass/Vol] 8.4 mg/dL Low 8.9-11.1 [facility] Comment on above: Performed By: #### 2 [id number] #### [facility] [address] [place] [address] Chloride [Moles/Vol] 104 mmol/L Normal 101-111 [facility] Comment on above: Performed By: #### 2 [id number] #### [facility] [address] [place] [address] CO2 [Moles/Vol] 25 mmol/L Normal 21-31 [facility] Comment on above: Performed By: #### 2 [id number] #### [facility] [address] [place] [address] Creatinine [Mass/Vol] 1.6 mg/dL High 0.5-1.3 [facility] Comment on above: Performed By: #### 2 [id number] #### [facility] [address] [place] [address] Glucose [Mass/Vol] 182 mg/dL Normal 55-199 [facility] Comment on above: Performed By: #### 2 [id number] #### [facility] [address] [place] [address] Potassium [Moles/Vol] 4.6 mmol/L Normal 3.5-5.3 [facility] Comment on above: Performed By: #### 2 [id number] #### [facility] [address] [place] [address] Sodium [Moles/Vol] 136 mmol/L Normal 135-145 [facility] Comment on above: Performed By: #### 2 [id number] #### [facility] [address] [place] [address] Urea nitrogen [Mass/Vol] 40 mg/dL High 5-21 [facility] Comment on above: Performed By: #### 2 [id number] #### [facility] [address] [place] [address] Urea nitrogen/Creatinine [Mass ratio] 25 No Units High 10-20 [facility] Comment on above: Performed By: #### 2 [id number] #### [facility] [address] [place] [id number] CBC w/ Auto Diffon 4 Basophils/100 WBC (Bld) 0.3 % Normal 0.0-2.0 [facility] Comment on above: Performed By: #### 2 [id number] #### [facility] [address] [place] [address] Basophils/Leukocyte s Auto (Bld) [Pure # fraction] 0.0 E9/L Normal 0.0-0.2 [facility] Comment on above: Performed By: #### 2 [id number] #### [facility] [address] [place] [address] Eosinophils (Bld) [#/Vol] 0.0 E9/L Normal 0.0-0.5 [facility] Comment on above: Performed By: #### 2 [id number] #### [facility] [address] [place] [address] Eosinophils/100 WBC (Bld) 0.3 % Normal 0.0-8.0 [facility] Comment on above: Performed By: #### 2 [id number] #### [facility] [address] [place] [address] Erythrocyte distribution width (RBC) [Ratio] 16.2 % High 10.9-14.2 [facility] Comment on above: Performed By: #### 2 [id number] #### [facility] [address] [place] [address] Hematocrit (Bld) [Volume fraction] 34.2 % Normal 34.0-46.0 [facility] Comment on above: Performed By: #### 2 [id number] #### [facility] [address] [place] [address] Hemoglobin (Bld) [Mass/Vol] 11.0 g/dL Low 12.0-16.0 [facility] Comment on above: Performed By: #### 2 [id number] #### [facility] [address] [place] [address] Lymphocytes (Bld) [#/Vol] 0.8 E9/L Low 1.0-4.0 [facility] Comment on above: Performed By: #### 2 [id number] #### [facility] [address] [place] [address] Lymphocytes/100 WBC (Bld) 8.7 % Low 14.0-50.0 [facility] Comment on above: Performed By: #### 2 [id number] #### [facility] [address] [place] [address] MCH (RBC) [Entitic mass] 32.0 pg Normal 27.0-34.0 [facility] Comment on above: Performed By: #### 2 [id number] #### [facility] [address] [place] [address] MCHC (RBC) [Mass/Vol] 32.2 g/dL Normal 31.4-36.0 [facility] Comment on above: Performed By: #### 2 [id number] #### [facility] [address] [place] [address] MCV (RBC) [Entitic vol] 99.4 fL Normal 80.0-100.0 [facility] Comment on above: Performed By: #### 2 [id number] #### [facility] [address] [place] [address] Monocytes (Bld) [#/Vol] 0.7 E9/L Normal 0.2-1.0 [facility] Comment on above: Performed By: #### 2 [id number] #### [facility] [address] [place] [address] Neutrophils (Bld) [#/Vol] 7.9 E9/L High 2.0-7.5 [facility] Comment on above: Performed By: #### 2 [id number] #### [facility] [address] [place] [address] Neutrophils/100 WBC (Bld) 83.7 % High 36.0-75.0 [facility] Comment on above: Performed By: #### 2 [id number] #### [facility] [address] [place] [address] Platelet mean volume (Bld) [Entitic vol] 9.0 fL Normal 6.4-10.8 [facility] Comment on above: Performed By: #### 2 [id number] #### [facility] [address] [place] [address] Platelets (Bld) [#/Vol] 215.0 E9/L Normal 150.0-500.0 [facility] Comment on above: Performed By: #### 2 [id number] #### [facility] [address] [place] [address] RBC (Bld) [#/Vol] 3.4 E12/L Low 4.3-5.9 [facility] Comment on above: Performed By: #### 2 [id number] #### [facility] [address] [place] [address] WBC corrected for nucl RBC Auto (Bld) [#/Vol] 9.5 E9/L Normal 4.0-11.0 [facility] Comment on above: Performed By: #### 2 [id number] #### [facility] [address] [place] [address] CHEMISTRYOrdered By: SYSTEM SYSTEM on 02-27-2024 Anion gap [Moles/Vol] 12 mmol/L Normal 6 - 16 mEq/L Remisol Chem Calcium [Mass/Vol] 8.4 mg/dL Low 8.9 - 11.1 mg/dL Rem[facility] Chem Chloride [Moles/Vol] 104 mmol/L Normal 101 - 111 mmol/L Remisol Chem CO2 [Moles/Vol] 25 mmol/L Normal 21 - 31 mmol/L Remis ol Chem Creatinine [Mass/Vol] 1.6 mg/dL High 0.5 - 1.3 mg/dL Remisol Chem eGFR 33 mL/min/1.73 m2 Low >=59mL/min/1.73 m2 Remisol Chem Glucose [Mass/Vol] 182 mg/dL Normal 55 - 199 mg/dL Re misol Chem Potassium [Moles/Vol] 4.6 mmol/L Normal 3.5 - 5.3 mmol/L Remisol Chem Sodium [Moles/Vol] 136 mmol/L Normal 135 - 145 mmol/L Remisol Chem Urea nitrogen [Mass/Vol] 40 mg/dL High 5 - 21 mg/dL Remisol Chem Urea nitrogen/Creatinine [Mass ratio] 25 mg/mg High 10 - 20 [facility] Chem Lactic Acid Lvl 1.4 mmol/L Normal 0.5 - 2.2 mmol/L Rem isol Chem Troponin HS 38.90 pg/mL Invalid Interpretation Code 10.10 - 27.10 pg/mL [facility] Chem Comment on above: Result Comment: Crit ical Result Verified by Previous Result Critical Result I_TnIHS:38.9 Called to and read back by: MARY ROB at: 02/27/2024 01:16:08 by:MAICOL Interpretive Data: T he 95% CI (Confidence Interval) PPV (Positive Predictive Value) for myocardial infarction in females is 38 pg/mL, in males 51 pg/mL. The results should be used in conjunction with clinical conditions of myocardial infarction. (Access High Sensitivity Troponin I Instructions For Use, Yazmin Addison, February 2018) CHEMISTRYOrdered By: Bre Heart on 02-27-2024 HbA1c (Bld) [Mass fraction] 7.4 % High <=5.9% [facility] ChemAutoSS CT Head or Brain w/o Contras ton 02-27-2024 CT Head or Brain w/o Contrast Exam Date/Time: 02/26/2024 18:49 EDT Reason for Exam: Altered mental status Report IMPRESSION: NO ACUTE INTRACRANIAL PROCESS IDENTIFIED. EXAM: CT Head or Brain w/o Contrast DATE: 02/26/2024 6:27 PM CLINICAL HISTORY: Altered mental status. COMPARISON: None available. TECHNIQUE: Routine. All CT scans at this facility use dose modulation, iterative reconstruction, and/or weight based dosing when appropriate to reduce radiation dose to as low as reasonably achievable. FINDINGS: There is no intracranial hemorrhage, mass effect, midline shift, extra-axial collection, evidence of hydrocephalus, skull fracture, or a recent ischemic infarct identified. Mild generalized cerebral volume loss is present, with patchy supratentorial white matter changes most consistent with chronic small vessel ischemic disease. The mastoid air cells and visualized paranasal sinuses are essentially clear. Ordering Provider: Teo Gupta FINAL REPORT Dictated: 02/27/2024 8:11 am Oscar Brady MD Signed (Electronic Signature): 02/27/2024 8:11 am Signed by: Oscar Brady MD Transcribed by: NIKKI Technologist: ALEX Normal [facility] Capillary Glucose POCon 02-11 Glucose [Mass/Vol] 181 mg/dL High 55-99 [facility] Comment on above: Result Comment: Tomas PERLA Performed By: #### 2 [id number] #### [facility] [address] [place] [address] Glucose [Mass/Vol] 153 mg/dL High 55-99 [facility] Comment on above: Performed By: #### 2 [id number] #### [facility] [address] [place] [address] Glucose [Mass/Vol] 147 mg/dL High 55-99 [facility] Comment on above: Result Comment: Tomas PERLA Performed By: #### 2 [id number] #### [facility] [address] [place] [address] Glucose [Mass/Vol] 159 mg/dL High 55-99 [facility] Comment on above: Performed By: #### 2 [id number] #### [facility] [address] [place] [address] Coding Queryon 02-27-2024 Coding Query Coding Query -- From: Sherif Puckett RN To: Allison CHANCE MD; Sent: 02/27/2024 07:17:42 EDT Subject: Coding Query Due Date/Time: 02/28/2024 07:17:00 EDT Caller Name: LEXI TATUM; Caller Number: H , M Documentation in the medical record indicates that this patient has been identified to have and/or is being treated for a Pressure (Decubitus) Ulcer/Injury of the following site: pressure ulcer coccyx stage I The following is also documented in the medical record: Nursing assessment on admission: Pressure ulcer coccyx stage I Based on your medical judgment, can you further clarify the stage of the pressure (decubitus) ulcer, if present, as well as if the ulcer was present on admission? Location (*Required): [___]Pressure Ulcer/Injury Stage I (Nonblanchable erythema of intact skin) Laterality: [___]Right [___]Left [___]N/A [___]Pressure Ulcer/Injury Stage II (Partial thickness skin loss involving epidermis, dermis, or both) Laterality: [___]Right [___]Left [___]N/A [___]Other: In responding to this request, please exercise your independent professional judgement. The fact that a question is asked does not imply that any particular answer is desired or expected. Thank you!sherif [id number] -- From: Allison CHANCE MD To: Sherif Puckett RN; Sent: 02/27/2024 08:39:01 EDT Subject: RE: Coding Query Caller Name: LEXI TATUM; Caller Number: H , M Thank you. [facility] Coding Query Coding Query -- From: Sherif Puckett RN To: Allison CHANCE MD; Sent: 02/27/2024 07:12:49 EDT ! Subject: Coding Query Due Date/Time: 02/28/2024 07:12:00 EDT Caller Name: LEXI TATUM; Caller Number: Giovanni , M Documentation in the medical record indicates this patient has been admitted with or diagnosed as having: sepsis The following is also documented in the medical record: Highest temp 38.0 HR<90 RR<20 spo2 90s rm air WBC 12.8 acute on chronic ARF (cr values elevated >0.5 above baseline used as organ dysfunction) SOFA 1 LA normal Sepsis standardized definition: General Indicators-temp<38. 3, HR/RR WNL, no AMS (H&P) +inflammatory criteria (wbc>12) hemodynamic stable SOFA 1 Based on your medical judgment, can you please further validate the above diagnosis? [___]The above diagnosis is not supported by clinical indicators and is ruled out. [___]The above diagnosis is supported by the following clinical indicators: [___]Other: In responding to this request, please exercise your independent professional judgement. The fact that a question is asked does not imply that any particular answer is desired or expected. Thank you!sherif [id number] -- From: Allison CHANCE MD To: Sherif Puckett RN; Sent: 02/27/2024 08:38:27 EDT Subject: RE: Coding Query Caller Name: LEXI TATUM; Caller Number: Giovanni , M No Sepsis- POA; Had AMS also Normal [facility] Coding Query Coding Query -- From: Sherif Puckett RN To: Allison CHANCE MD; Sent: 02/27/2024 07:17:42 EDT Subject: Coding Query Due Date/Time: 02/28/2024 07:17:00 EDT Caller Name: LEXI TATUM; Caller Number: H , M Documentation in the medical record indicates that this patient has been identified to have and/or is being treated for a Pressure (Decubitus) Ulcer/Injury of the following site: pressure ulcer coccyx stage I The following is also documented in the medical record: Nursing assessment on admission: Pressure ulcer coccyx stage I Based on your medical judgment, can you further clarify the stage of the pressure (decubitus) ulcer, if present, as well as if the ulcer was present on admission? Location (*Required): [___]Pressure Ulcer/Injury Stage I (Nonblanchable erythema of intact skin) Laterality: [___]Right [___]Left [___]N/A [___]Pressure Ulcer/Injury Stage II (Partial thickness skin loss involving epidermis, dermis, or both) Laterality: [___]Right [___]Left [___]N/A [___]Other: In responding to this request, please exercise your independent professional judgement. The fact that a question is asked does not imply that any particular answer is desired or expected. Thank you!sherif [id number] [facility] Coding Query Coding Query -- From: Sherif Puckett RN To: KADE MARLOW, [facility]; Sent: 02/27/2024 07:12:49 EDT ! Subject: Coding Query Due Date/Time: 02/28/2024 07:12:00 EDT Caller Name: LEXI TATUM; Caller Number: H , M Documentation in the medical record indicates this patient has been admitted with or diagnosed as having: sepsis The following is also documented in the medical record: Highest temp 38.0 HR<90 RR<20 spo2 90s rm air WBC 12.8 acute on chronic ARF (cr values elevated >0.5 above baseline used as organ dysfunction) SOFA 1 LA normal Sepsis standardized definition: General Indicators-temp<38. 3, HR/RR WNL, no AMS (H&P) +inflammatory criteria (wbc>12) hemodynamic stable SOFA 1 Based on your medical judgment, can you please further validate the above diagnosis? [___]The above diagnosis is not supported by clinical indicators and is ruled out. [___]The above diagnosis is supported by the following clinical indicators: [___]Other: In responding to this request, please exercise your independent professional judgement. The fact that a question is asked does not imply that any particular answer is desired or expected. Thank you!sherif [id number] Normal [facility] HEMATOLOGYOrdered By: SYSTEM SYSTEM on 02-27-2024 Basophils/100 WBC (Bld) 0.3 % Normal 0.0 - 2.0 % Remisol Heme Basophils/Leukocyte s Auto (Bld) [Pure # fraction] 0.0 E9/L Normal 0.0 - 0.2 E9/L Remisol Heme Eosinophils (Bld) [#/Vol] 0.0 E9/L Normal 0.0 - 0.5 E9/L Remisol Heme Eosinophils/100 WBC (Bld) 0.3 % Normal 0.0 - 8.0 % Remisol Heme Erythrocyte distribution width (RBC) [Ratio] 16.2 % High 10.9 - 14.2 % [facility] Heme Hematocrit (Bld) [Volume fraction] 34.2 % Normal 34.0 - 46.0 % [facility] Heme Hemoglobin (Bld) [Mass/Vol] 11.0 g/dL Low 12.0 - 16.0 gm/dL Rem[facility] Heme Lymphocytes (Bld) [#/Vol] 0.8 E9/L Low 1.0 - 4.0 E9/L Rem[facility] Heme Lymphocytes/100 WBC (Bld) 8.7 % Low 14.0 - 50.0 % Remisol Heme MCH (RBC) [Entitic mass] 32.0 pg Normal 27.0 - 34.0 pg Remisol Heme MCHC (RBC) [Mass/Vol] 32.2 g/dL Normal 31.4 - 36.0 gm/dL [facility] Heme MCV (RBC) [Entitic vol] 99.4 fL Normal 80.0 - 100.0 fL Rem[facility] Heme Monocytes (Bld) [#/Vol] 0.7 E9/L Normal 0.2 - 1.0 E9/L Remisol Heme Monocytes/100 WBC (Bld) 7.0 % Normal 4.0 - 14.0 % Rem[facility] Heme Neutrophils (Bld) [#/Vol] 7.9 E9/L High 2.0 - 7.5 E9/L Remisol Heme Neutrophils/100 WBC (Bld) 83.7 % High 36.0 - 75.0 % Remisol Heme Platelet mean volume (Bld) [Entitic vol] 9.0 fL Normal 6.4 - 10.8 fL Remisol Heme Platelets (Bld) [#/Vol] 215.0 E9/L Normal 150.0 - 500.0 E9/L Remisol Heme RBC (Bld) [#/Vol] 3.4 E12/L Low 4.3 - 5.9 E12/L Re misol Heme WBC corrected for nucl RBC Auto (Bld) [#/Vol] 9.5 E9/L Normal 4.0 - 11.0 E9/L Remisol Heme Inpatient Clinical Summaryon 02-27-2024 Inpatient Clinical Summary Inpatient Clinical Summary [place] [id number] Clinical Summary Person Information: Name: LEXI TATUM Age: 78 Years : 1945 Sex: Female PCP: STEFAN BEST MD Marital Status: Race: White Ethnicity: Non- or Language: Mauritian Visit Id: Visit Reason: Chest pain; ALOC Speciality: Acuity: Enc Type: Inpatient Med Service: Medical Arrival: 02/26/2024 17:28:58 Discharge: Dispo Type: Admitted as IP to this Hosp Address: [address] [place] [address] [id number] Provider Notes: Diagnosis: 1:Acute metabolic encephalopathy; 2:Sepsis; 3:Urinary tract infection; 4:Acute kidney injury; 5:Elevated troponin; 6:Generalized weakness; 7:Decubitus ulcer of coccygeal region, stage 1; 8:Diabetes; 9:CKD stage 3b, 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; 10:Pure hypercholesterolemi a; 11:Class 3 severe obesity with serious comorbidity in adult; 12:Coronary artery disease; 13:On deep vein thrombosis (DVT) prophylaxis Problems Active 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 Hydronephrosis Retroperitoneal fibrosis Chronic kidney disease, stage 3 unspecified Class 3 severe obesity with serious comorbidity in adult Type 1 diabetes mellitus with hypercholesterolemi a Long-term insulin use Flank pain Urinary incontinence Wellness examination Pure hypercholesterolemi a Osteoarthritis Gout Diabetic peripheral neuropathy Vitamin D deficiency Smoking Status: Former Smoker Functional Status: Sensory Deficits: History of Falls: Within last one year Mobility Assistance Prior to Admission: ADLs: Minimal assistance Current Level of Assistance for Self-Care/Mobility: Cognitive Status: Oriented x 3 Allergies atorvastatin (Myalgia) pravastatin (Unknown) Measurements: Height: 149.86 cm Weight: 75.7 kg Blood Pressure: 151 mmHg / 59 mmHg BMI: 33.71 kg/m2 Procedures No Procedures Documented Immunizations No Immunizations Documented This Visit Final Med List: acetaminophen (Tylenol) 650 Milligram By Mouth. allopurinol (allopurinol 300 mg Tab) 1 Tablets By Mouth every day. Refills: 1. ascorbic acid (Vitamin C 500 mg oral tablet, chewable) 1 Tablets Chewed every day. aspirin (aspirin 81 mg Oral EC Tab) Oral. carvedilol (carvedilol 25 mg Tab) 1 Tablets 2 times a day. Oral. cholecalciferol (cholecalciferol 1000 intl units oral capsule) 1 Capsules By Mouth every day. Oral. Refills: 1. clopidogrel (Plavix 75 mg Tab) 1 Tablets every day. Oral. docusate (Colace) By Mouth every day. ergocalciferol (Vitamin D Oral) 50,000 International unit By Mouth every day. ferrous sulfate (ferrous sulfate 325 mg oral enteric coated tablet) 1 Tablets By Mouth every other day. furosemide (furosemide 40 mg Tab) 1 Tablets every day. 30 tab(s). gabapentin (gabapentin 300 mg Cap) 1 Capsules By Mouth 2 times a day. Oral. Refills: 1. insulin degludec (Tresiba FlexTouch 100 units/mL subcutaneous solution) 20 Units Subcutaneous As Directed. using sliding scale as needed. Refills: 1. insulin glargine (Basaglar KwikPen 100 units/mL subcutaneous solution) 50 Units Subcutaneous every day. Refills: 2. insulin lispro (HumaLOG 100 units/mL injectable solution) 20 Units Subcutaneous As Directed. as needed per sliding scale. Refills: 2. Misc Prescription (Misc DME Prescription) True Metrix Test Strips Check AC&HS. Refills: 3. oxybutynin (oxybutynin 10 mg ER Tab) 1 Tablets By Mouth every day. Refills: 0. potassium chloride (potassium chloride 10 mEq ER Tab) 1 Tablets By Mouth every day. Oral. Refills: 5. rosuvastatin (rosuvastatin 5 mg Tab) 1 Tablets By Mouth every day. Refills: 1. Care Team Members: Attending Physician: Allison CHANCE MD Consulting Physician: Referring Physician: Follow up: With: Address: When: STEFAN BEST [address] [place] [address] Business (1) Patient Education Information: Normal [facility] Inpatient Patient Summaryon 02-27-2024 Inpatient Patient Summary Inpatient Patient Summary [place] [id number] Patient Discharge Instructions PERSON INFORMATION Name: LEXI TATUM Date of : 1945 Current Date: 02/27/2024 11:06:16 PHYSICIANS Admitting Physician: Allison CHANCE MD Primary Care Physician: STEFAN BEST MD Comment: Discharge Diagnosis: 1:Acute metabolic encephalopathy; 2:Sepsis; 3:Urinary tract infection; 4:Acute kidney injury; 5:Elevated troponin; 6:Generalized weakness; 7:Decubitus ulcer of coccygeal region, stage 1; 8:Diabetes; 9:CKD stage 3b, 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; 10:Pure hypercholesterolemi a; 11:Class 3 severe obesity with serious comorbidity in adult; 12:Coronary artery disease; 13:On deep vein thrombosis (DVT) prophylaxis Condition at Discharge: LUCRECIALEXI RAMÍREZ Nestor has been given the following list of follow-up instructions, prescriptions, and patient education materials: PATIENT FOLLOW-UP INFORMATION Diet: Discharge Activity: Discharge Restrictions: Wound Care Instructions: Remove Your Dressing In Days Call Your Doctor For: IF UNABLE TO CONTACT YOUR PHYSICIAN AND YOU FEEL IT IS AN EMERGENCY, GO TO THE NEAREST EMERGENCY ROOM OR CALL 911 Home Treatment: Devices/Equipment: Walker - front wheeled Special Services: Additional Instructions: Primary Care Physician to provide the following pending test results: Follow up: With: Address: When: [place] [address] Business (1) In the event that this physician does not participate in your insurance network, please consult with your insurance company to find a nearby participating provider. Comment: RC Mitchell SANDRA L, have received the attached patient education materials/instructi ons and have verbalized understanding: Patient Signature Date Clinican/Nurse Signature Date HERE ARE THE MEDICATION CHANGES THAT OCCURRED DURING YOUR HOSPITAL STAY Medications to Continue with No Changes Other Medications acetaminophen (Tylenol) 650 Milligram By Mouth., take 2 at bedtime Last Dose: Next Dose: allopurinol (allopurinol 300 mg Tab) 1 Tablets By Mouth every day. Refills: 1. Last Dose: Next Dose: ascorbic acid (Vitamin C 500 mg oral tablet, chewable) 1 Tablets Chewed every day. Last Dose: Next Dose: aspirin (aspirin 81 mg Oral EC Tab) Oral. Last Dose: Next Dose: carvedilol (carvedilol 25 mg Tab) 1 Tablets 2 times a day. Oral. Last Dose: Next Dose: cholecalciferol (cholecalciferol 1000 intl units oral capsule) 1 Capsules By Mouth every day. Oral. Refills: 1. Last Dose: Next Dose: clopidogrel (Plavix 75 mg Tab) 1 Tablets every day. Oral. Last Dose: Next Dose: docusate (Colace) By Mouth every day. Last Dose: Next Dose: ergocalciferol (Vitamin D Oral) 50,000 International unit By Mouth every day. Last Dose: Next Dose: ferrous sulfate (ferrous sulfate 325 mg oral enteric coated tablet) 1 Tablets By Mouth every other day. Last Dose: Next Dose: furosemide (furosemide 40 mg Tab) 1 Tablets every day. 30 tab(s)., Responsible Provider: Tom Morales Last Dose: Next Dose: gabapentin (gabapentin 300 mg Cap) 1 Capsules By Mouth 2 times a day. Oral. Refills: 1. Last Dose: Next Dose: insulin degludec (Tresiba FlexTouch 100 units/mL subcutaneous solution) 20 Units Subcutaneous As Directed. using sliding scale as needed. Refills: 1. Last Dose: Next Dose: insulin glargine (Basaglar KwikPen 100 units/mL subcutaneous solution) 50 Units Subcutaneous every day. Refills: 2. Last Dose: Next Dose: insulin lispro (HumaLOG 100 units/mL injectable solution) 20 Units Subcutaneous As Directed. as needed per sliding scale. Refills: 2. Last Dose: Next Dose: Misc Prescription (Misc DME Prescription) True Metrix Test Strips Check AC&HS. Refills: 3. Last Dose: Next Dose: oxybutynin (oxybutynin 10 mg ER Tab) 1 Tablets By Mouth every day. Refills: 0. Last Dose: Next Dose: potassium chloride (potassium chloride 10 mEq ER Tab) 1 Tablets By Mouth every day. Oral. Refills: 5. Last Dose: Next Dose: rosuvasta (more content not included)... Normal [facility] Interdisciplinary Note - Tejas e Manageron 02-27-2024 Interdisciplinary Note - Supervisor Looping Interdisciplinary Note - Supervisor Looping CRM to room to discuss DC planning. Patient is awake, alert and oriented. Patient is from home with her spouse. Him or family can transport at DC. Patient verified PCP, DME and insurance. Patient signed medicare form. Patient is here with ALOC. Has SUSAN. Patient is assigned to Dr Chance, see notes. Patient has SS for advance directives and DM ed consults. Patient was seen by PT/OT with SNF VS HH recs. If SNF needed at DC choice is 1. [facility] and if its HH choice is 1. [facility]. Patient would need a [address] Chance will be here a few days at least. Patient has walker, Raised Toilet, SC and grab bars at home. Patient has been off and on oxygen NC here. It is off now. She does not have any at home. Patient was provided CRM contact, white board updated. CRM following TCU accepts on [facility] side with semi private room, has to have 3 M stay and could DC 02/28 [facility] accepted if that is plan at DC Patient does not want a shared room and said she will just DC home with HH Normal [facility] Comment on above: Result Comment: Elec tronically Signed By: Stacie Watts\.br\Date and Time Signed: 02/27/24 15:22 EDT Interdisciplinary Note - Shireen n 02-27-2024 Interdisciplinary Note - OT Interdisciplinary Note - OT OT AM-PAC 6 CLICKS SCORE =SNF vs. HH services. Main barriers towards Pt's safe and functional performance are generalized weakness and unsteadiness. Pt completes ADL functional transfers CGA and requires min A for lower body self care tasks due to unsteadiness at time of eval. SNF vs HH recommended at this time pending Pt's progress and family support/assist at home for safety. OT to follow Friday-Friday, progressing as tolerates. Normal [facility] Interdisciplinary Note - PTo n 02-27-2024 Interdisciplinary Note - PT Interdisciplinary Note - PT Initial PT eval completed. 6 Clicks AM-PAC . Recommend SNF vs HH PT. FAmily concern with safety at home alone when they are working. Spouse also to have TKA next week. Pt would benefit from strengthening prior to pending LIVIER. Will see daily. Normal [facility] Interdisciplinary Note - Soc ial Workeron 02-27-2024 Interdisciplinary Note - Radio Equipment Installer Interdisciplinary Note - Radio Equipment Installer There was a system generated request for the SW to review Advance Directives. The SW met with the patient and explained the benefits of having Advance Directives in place. SW also explained the protocol in completing the documents. She stated she would like to think about it as she is not sure of the order in which she would list her POA and alternates. She will request a SW if there are any further questions. Normal [facility] Lactic Acidon 02-27-2024 Lactic Acid Lvl 1.4 mmol/L Normal 0.5-2.2 [facility] Comment on above: Performed By: #### 2 [id number] #### [facility] [address] [place] [address] TOBRAMYCIN:SUSC:PT:ISOLATE:O RDQN:MICOrdered By: Elisa Love on 02-27-2024 Tobramycin JOHAN [Susc] 20,000 cfu/ml Escherichia coli [facility] Tobramycin JOHAN [Susc]Ordered By: Elisa Love on 02-27-2024 Escherichia coli Escherichia coli [facility] Troponin 6 Hr.on 02-27-2024 Troponin HS 38.90 pg/mL Abnormal 10.10-27.10 [facility] Comment on above: Result Comment: Crit ical Result Verified by Previous Result Critical Result I_TnIHS:38.9 Called to and read back by: MARY ROB at: 02/27/2024 01:16:08 by:[email or web address] The 95% CI (Confidence Interval) PPV (Positive Predictive Value) for myocardial infarction in females is 38 pg/mL, in males 51 pg/mL. The results should be used in conjunction with clinical conditions of myocardial infarction. (Access High Sensitivity Troponin I Instructions For Use, Yazmin Addison, February 2018) Performed By: #### 1 [id number] #### [facility] [address] [place] [address] UA with Cult Rflxon 02-27-20 24 Bilirubin Ql (U) dupl Invalid Interpretation Code [facility] Comment on above: Performed By: #### 4 [id number] #### [facility] [address] [place] [address] Clarity (U) dupl Invalid Interpretation Code [facility] Comment on above: Performed By: #### 4 [id number] #### [facility] [address] [place] [address] Color (U) dupl Invalid Interpretation Code [facility] Comment on above: Result Comment: dupl icate order/credited 02/27/2024 08:19 CSS Microscopic readings are only performed on those samples that meet specific criteria set forth by [facility]. Performed By: #### 4 [id number] #### [facility] [address] [place] [address] Glucose Ql (U) dupl Invalid Interpretation Code [facility] Comment on above: Performed By: #### 4 [id number] #### [facility] [address] [place] [address] Hemoglobin Auto test strip (U) [Mass/Vol] dupl Invalid Interpretation Code [facility] Comment on above: Performed By: #### 4 [id number] #### [facility] [address] [place] [address] Ketones Auto test strip Ql (U) dupl Invalid Interpretation Code [facility] Comment on above: Performed By: #### 4 [id number] #### [facility] [address] [place] [address] Leukocyte esterase Auto test strip Ql (U) dupl Invalid Interpretation Code [facility] Comment on above: Performed By: #### 4 [id number] #### [facility] [address] [place] [address] Nitrite Auto test strip Ql (U) dupl Invalid Interpretation Code [facility] Comment on above: Performed By: #### 4 [id number] #### [facility] [address] [place] [address] pH (U) dupl Invalid Interpretation Code 5.0-9.0 [facility] Comment on above: Performed By: #### 4 [id number] #### [facility] [address] [place] [address] Protein Ql (U) dupl Invalid Interpretation Code [facility] Comment on above: Performed By: #### 4 [id number] #### [facility] [address] [place] [address] Specific gravity (U) [Rel density] dupl Invalid Interpretation Code 1.005-1.030 [facility] Comment on above: Performed By: #### 4 [id number] #### [facility] [address] [place] [address] Urobilinogen (U) [Mass/Vol] dupl Invalid Interpretation Code [facility] Comment on above: Performed By: #### 4 [id number] #### [facility] [address] [place] [address] Bacteria Auto Ql (U) 1+ /HPF Abnormal Trace [facility] Comment on above: Performed By: #### 4 [id number] #### [facility] [address] [place] [address] Bilirubin Ql (U) Negative Normal Negative [facility] Comment on above: Performed By: #### 4 [id number] #### [facility] [address] [place] [address] Clarity (U) Turbid Abnormal Clear [facility] Comment on above: Performed By: #### 4 [id number] #### [facility] [address] [place] [address] Color (U) Light-[place] Abnormal Yellow [facility] Comment on above: Result Comment: Micr oscopic readings are only performed on those samples that meet specific criteria set forth by [facility]. Performed By: #### 4 [id number] #### [facility] [address] [place] [address] Epithelial cells.squamous Auto (Urine sed) [#/Area] 0-2 Invalid Interpretation Code [facility] Comment on above: Performed By: #### 4 [id number] #### [facility] [address] [place] [address] Glucose Ql (U) Negative Normal Negative [facility] Comment on above: Performed By: #### 4 [id number] #### [facility] [address] [place] [address] Hemoglobin Auto test strip (U) [Mass/Vol] 3+ mg/dL Abnormal Negative [facility] Comment on above: Performed By: #### 4 [id number] #### [facility] [address] [place] [address] Ketones Auto test strip Ql (U) Negative Normal Negative [facility] Comment on above: Performed By: #### 4 [id number] #### [facility] [address] [place] [address] Leukocyte clumps Auto (Urine sed) [#/Area] 11-20 Abnormal [facility] Comment on above: Performed By: #### 4 [id number] #### [facility] [address] [place] [address] Leukocyte esterase Auto test strip Ql (U) 500 [place]/uL Abnormal Negative [facility] Comment on above: Performed By: #### 4 [id number] #### [facility] [address] [place] [address] Mucus Auto Ql (U) Trace Normal Negative [facility] Comment on above: Performed By: #### 4 [id number] #### [facility] [address] [place] [address] Nitrite Auto test strip Ql (U) 1+ mg/dL Abnormal Negative [facility] Comment on above: Performed By: #### 4 [id number] #### [facility] [address] [place] [address] pH (U) 7.0 [pH] Invalid Interpretation Code 5.0-9.0 [facility] Comment on above: Performed By: #### 4 [id number] #### [facility] [address] [place] [address] Protein Ql (U) 2+ mg/dL Abnormal Negative [facility] Comment on above: Performed By: #### 4 [id number] #### [facility] [address] [place] [address] RBC Ql (U) 31-75 Abnormal 0-3 [facility] Comment on above: Performed By: #### 4 [id number] #### [facility] [address] [place] [address] Specific gravity (U) [Rel density] 1.011 Invalid Interpretation Code 1.005-1.030 [facility] Comment on above: Performed By: #### 4 [id number] #### [facility] [address] [place] [address] Urobilinogen (U) [Mass/Vol] Negative Normal Negative [facility] Comment on above: Performed By: #### 4 [id number] #### [facility] [address] [place] [address] WBC Auto (Urine sed) [#/Area] >75 Abnormal 0-5 [facility] Comment on above: Performed By: #### 4 [id number] #### [facility] [address] [place] [address] URINALYSISOrdered By: SYSTEM SYSTEM on 02-27-2024 Bacteria Auto Ql (U) 1+ /HPF Invalid Interpretation Code Trace/HPF [facility] UA Auto SS Bilirubin Ql (U) Negative Normal Negativemg/dL [facility] UA Auto SS Clarity (U) Turbid *ABN* (02/27/24 3:19 AM) Invalid Interpretation Code Clear [facility] UA Auto SS Color (U) Light-[place] 3 *ABN* (02/27/24 3:19 AM) Invalid Interpretation Code Yellow [facility] UA Auto SS Comment on above: Interpretive Data: M icroscopic readings are only performed on those samples that meet specific criteria set forth by [facility]. Epithelial cells.squamous Auto (Urine sed) [#/Area] 0-2 graded/HPF Invalid Interpretation Code [facility] UA Auto SS Glucose Ql (U) Negative Normal Negativemg/dL [facility] UA Auto SS Hemoglobin Auto test strip (U) [Mass/Vol] 3+ mg/dL Invalid Interpretation Code Negativemg/dL [facility] UA Auto SS Ketones Auto test strip Ql (U) Negative Normal Negativemg/dL [facility] UA Auto SS Leukocyte clumps Auto (Urine sed) [#/Area] 11-20 graded/HPF Invalid Interpretation Code [facility] UA Auto SS Leukocyte esterase Auto test strip Ql (U) 500 [place]/uL [place]/uL Invalid Interpretation Code NegativeLeu/uL [facility] UA Auto SS Mucus Auto Ql (U) Trace graded/LPF Normal Negativegrad ed/LPF [facility] UA Auto SS Nitrite Auto test strip Ql (U) 1+ mg/dL Invalid Interpretation Code Negativemg/dL [facility] UA Auto SS pH (U) 7.0 *NA* (02/27/24 3:19 AM) Invalid Interpretation Code 5.0 - 9.0 [facility] UA Auto SS Protein Ql (U) 2+ mg/dL Invalid Interpretation Code Negativemg/dL [facility] UA Auto SS RBC Ql (U) 31-75 graded/HPF Invalid Interpretation Code 0-3graded/HPF [facility] UA Auto SS Specific gravity (U) [Rel density] 1.011 *NA* (02/27/24 3:19 AM) Invalid Interpretation Code 1.005 - 1.030 [facility] UA Auto SS Urobilinogen (U) [Mass/Vol] Negative Normal Negativemg/dL [facility] UA Auto SS WBC Auto (Urine sed) [#/Area] >75 graded/HPF Invalid Interpretation Code 0-5graded/HPF [facility] UA Auto SS URINALYSISOrdered By: Elisa Love on 02-27-2024 Bilirubin Ql (U) dupl Invalid Interpretation Code [facility] UA Auto SS Clarity (U) dupl Invalid Interpretation Code [facility] UA Auto SS Color (U) dupl Invalid Interpretation Code [facility] UA Auto SS Comment on above: Result Comment: bob curran order/credited 02/27/2024 08:19 CSS Interpretive Data: M icroscopic readings are only performed on those samples that meet specific criteria set forth by [facility]. Glucose Ql (U) dupl Invalid Interpretation Code [facility] UA Auto SS Hemoglobin Auto test strip (U) [Mass/Vol] dupl Invalid Interpretation Code [facility] UA Auto SS Ketones Auto test strip Ql (U) dupl Invalid Interpretation Code [facility] UA Auto SS Leukocyte esterase Auto test strip Ql (U) dupl Invalid Interpretation Code [facility] UA Auto SS Nitrite Auto test strip Ql (U) dupl Invalid Interpretation Code [facility] UA Auto SS pH (U) dupl Invalid Interpretation Code 5.0 - 9.0 [facility] UA Auto SS Protein Ql (U) dupl Invalid Interpretation Code [facility] UA Auto SS Specific gravity (U) [Rel density] dupl Invalid Interpretation Code 1.005 - 1.030 [facility] UA Auto SS Urobilinogen (U) [Mass/Vol] dupl Invalid Interpretation Code [facility] UA Auto SS URINALYSISOrdered By: Teo Gupta on 02-27-2024 UA Spec Desc Clean Catch (02/27/24 3:19 AM) Normal [facility] UA Auto SS Work Phone: URINALYSISOrdered By: Marifer CHANCE on 02-27-2024 UA Spec Desc Random Urine (02/27/24 3:19 AM) Normal [facility] UA Auto SS Work Phone: XR Chest Single Viewon 02-26 XR Chest Single View Exam Date/Time: 02/26/2024 17:47 EDT Reason for Exam: Chest pain Report IMPRESSION: No distinct focal consolidation. Shallow inspiration. Possible small left pleural effusion. EXAMINATION: XR Chest Single View Clinical History: Chest pain Comparison: None RESULT: Shallow inspiration. No distinct focal consolidation. No large pleural effusion. Possible small left pleural effusion. No pneumothorax. Grossly normal caliber cardiomediastinal silhouette, accentuated by technique. Aortic vascular calcifications. Median sternotomy and mediastinal clips. Vascular stent projecting in the region of the aortic arch. No distinct acute osseous findings. Degenerative changes. Ordering Provider: Teo Gupta FINAL REPORT Dictated: 02/27/2024 10:28 am Jagjit Garcia MD Signed (Electronic Signature): 02/27/2024 10:28 am Signed by: Jagjit Garcia MD Transcribed by: NIKKI Technologist: MANISH Technical Comments Radiation Dose: Ka,r in mGy = . DAP = . Normal [facility] eGFRon 02-27-2024 eGFR 33 mL/min/1.73 m2 Low >=59 [facility] Comment on above: Order Comment: Order added by Discern Expert. Performed By: #### 1 [id number] #### [facility] [address] [place] [address] BB Draw & Holdon 02-26-2024 BB D&H Sample drawn for Blood Ba Normal [facility] Comment on above: Performed By: #### 1 [id number] #### [facility] [address] [place] [address] BMPon 02-26-2024 Anion gap [Moles/Vol] 11 mmol/L Normal 6-16 [facility] Comment on above: Performed By: #### 2 [id number] #### [facility] [address] [place] [address] Calcium [Mass/Vol] 8.7 mg/dL Low 8.9-11.1 [facility] Comment on above: Performed By: #### 2 [id number] #### [facility] [address] [place] [address] Chloride [Moles/Vol] 100 mmol/L Low 101-111 [facility] Comment on above: Performed By: #### 2 [id number] #### [facility] [address] [place] [address] CO2 [Moles/Vol] 26 mmol/L Normal 21-31 [facility] Comment on above: Performed By: #### 2 [id number] #### [facility] [address] [place] [address] Creatinine [Mass/Vol] 1.8 mg/dL High 0.5-1.3 [facility] Comment on above: Performed By: #### 2 [id number] #### [facility] [address] [place] [address] Glucose [Mass/Vol] 97 mg/dL Normal 55-199 [facility] Comment on above: Performed By: #### 2 [id number] #### [facility] [address] [place] [address] Potassium [Moles/Vol] 4.4 mmol/L Normal 3.5-5.3 [facility] Comment on above: Performed By: #### 2 [id number] #### [facility] [address] [place] [address] Sodium [Moles/Vol] 133 mmol/L Low 135-145 [facility] Comment on above: Performed By: #### 2 [id number] #### [facility] [address] [place] [address] Urea nitrogen [Mass/Vol] 39 mg/dL High 5-21 [facility] Comment on above: Performed By: #### 2 [id number] #### [facility] [address] [place] [address] Urea nitrogen/Creatinine [Mass ratio] 22 No Units High 10-20 [facility] Comment on above: Performed By: #### 2 [id number] #### [facility] [address] [place] [address] CBC w/ Auto Diffon 4 Basophils/100 WBC (Bld) 1.0 % Normal 0.0-2.0 [facility] Comment on above: Performed By: #### 2 [id number] #### [facility] [address] [place] [address] Basophils/Leukocyte s Auto (Bld) [Pure # fraction] 0.1 E9/L Normal 0.0-0.2 [facility] Comment on above: Performed By: #### 2 [id number] #### [facility] [address] [place] [address] Eosinophils (Bld) [#/Vol] 0.1 E9/L Normal 0.0-0.5 [facility] Comment on above: Performed By: #### 2 [id number] #### [facility] [address] [place] [address] Eosinophils/100 WBC (Bld) 0.5 % Normal 0.0-8.0 [facility] Comment on above: Performed By: #### 2 [id number] #### [facility] [address] [place] [address] Erythrocyte distribution width (RBC) [Ratio] 15.8 % High 10.9-14.2 [facility] Comment on above: Performed By: #### 2 [id number] #### [facility] [address] [place] [address] Hematocrit (Bld) [Volume fraction] 34.4 % Normal 34.0-46.0 [facility] Comment on above: Performed By: #### 2 [id number] #### [facility] [address] [place] [address] Hemoglobin (Bld) [Mass/Vol] 10.8 g/dL Low 12.0-16.0 [facility] Comment on above: Performed By: #### 2 [id number] #### [facility] [address] [place] [address] Lymphocytes (Bld) [#/Vol] 1.1 E9/L Normal 1.0-4.0 [facility] Comment on above: Performed By: #### 2 [id number] #### [facility] [address] [place] [address] Lymphocytes/100 WBC (Bld) 8.4 % Low 14.0-50.0 [facility] Comment on above: Performed By: #### 2 [id number] #### [facility] [address] [place] [address] MCH (RBC) [Entitic mass] 31.4 pg Normal 27.0-34.0 [facility] Comment on above: Performed By: #### 2 [id number] #### [facility] [address] [place] [address] MCHC (RBC) [Mass/Vol] 31.5 g/dL Normal 31.4-36.0 [facility] Comment on above: Performed By: #### 2 [id number] #### [facility] [address] [place] [address] MCV (RBC) [Entitic vol] 99.8 fL Normal 80.0-100.0 [facility] Comment on above: Performed By: #### 2 [id number] #### [facility] [address] [place] [address] Monocytes (Bld) [#/Vol] 1.0 E9/L Normal 0.2-1.0 [facility] Comment on above: Performed By: #### 2 [id number] #### [facility] [address] [place] [address] Neutrophils (Bld) [#/Vol] 10.5 E9/L High 2.0-7.5 [facility] Comment on above: Performed By: #### 2 [id number] #### [facility] [address] [place] [address] Neutrophils/100 WBC (Bld) 82.2 % High 36.0-75.0 [facility] Comment on above: Performed By: #### 2 [id number] #### [facility] [address] [place] [address] Platelet mean volume (Bld) [Entitic vol] 8.8 fL Normal 6.4-10.8 [facility] Comment on above: Performed By: #### 2 [id number] #### [facility] [address] [place] [address] Platelets (Bld) [#/Vol] 211.0 E9/L Normal 150.0-500.0 [facility] Comment on above: Performed By: #### 2 [id number] #### [facility] [address] [place] [address] RBC (Bld) [#/Vol] 3.4 E12/L Low 4.3-5.9 [facility] Comment on above: Performed By: #### 2 [id number] #### [facility] [address] [place] [address] WBC corrected for nucl RBC Auto (Bld) [#/Vol] 12.8 E9/L High 4.0-11.0 [facility] Comment on above: Performed By: #### 2 [id number] #### [facility] [address] [place] [address] CHEMISTRYOrdered By: SYSTEM SYSTEM on 02-26-2024 Troponin HS 59.70 pg/mL Invalid Interpretation Code 10.10 - 27.10 pg/mL Remisol Chem Comment on above: Result Comment: Crit ical Result Verified by Previous Result Critical Result I_TnIHS:59.7 Called to and read back by: AMANDA PRESLEY at: 02/26/2024 21:24:01 by:[email or web address] Interpretive Data: T he 95% CI (Confidence Interval) PPV (Positive Predictive Value) for myocardial infarction in females is 38 pg/mL, in males 51 pg/mL. The results should be used in conjunction with clinical conditions of myocardial infarction. (Access High Sensitivity Troponin I Instructions For Use, [employer], February 2018) Lactic Acid Lvl 0.6 mmol/L Normal 0.5 - 2.2 mmol/L Rem isol Chem Troponin HS 70.30 pg/mL Invalid Interpretation Code 10.10 - 27.10 pg/mL Remisol Chem Comment on above: Result Comment: Crit ical Result Verified by Previous Result Interpretive Data: T he 95% CI (Confidence Interval) PPV (Positive Predictive Value) for myocardial infarction in females is 38 pg/mL, in males 51 pg/mL. The results should be used in conjunction with clinical conditions of myocardial infarction. (Access High Sensitivity Troponin I Instructions For Use, [employer] Addison, February 2018) Anion gap [Moles/Vol] 11 mmol/L Normal 6 - 16 mEq/L Remisol Chem Calcium [Mass/Vol] 8.7 mg/dL Low 8.9 - 11.1 mg/dL Remisol Chem Chloride [Moles/Vol] 100 mmol/L Low 101 - 111 mmol/L Remisol Chem CO2 [Moles/Vol] 26 mmol/L Normal 21 - 31 mmol/L Remis ol Chem Creatinine [Mass/Vol] 1.8 mg/dL High 0.5 - 1.3 mg/dL Remisol Chem eGFR 28 mL/min/1.73 m2 Low >=59mL/min/1.73 m2 Remisol Chem Glucose [Mass/Vol] 97 mg/dL Normal 55 - 199 mg/dL Re misol Chem Potassium [Moles/Vol] 4.4 mmol/L Normal 3.5 - 5.3 mmol/L Remisol Chem Sodium [Moles/Vol] 133 mmol/L Low 135 - 145 mmol/L Remisol Chem Urea nitrogen [Mass/Vol] 39 mg/dL High 5 - 21 mg/dL Remisol Chem Urea nitrogen/Creatinine [Mass ratio] 22 mg/mg High 10 - 20 Remisol Chem COAGULATIONOrdered By: Rufino White on 02-26-2024 aPTT Coag (PPP) [Time] 30.9 s Normal 25.1 - 36.5 second(s) [facility] Auto Coag Comment on above: Interpretive Data: Mirian poole 15 days - 4 weeks 1 - 5 months 6 - 11 months 1 - 5 years 6 - 10 years 11 - 17 years PTT Mean: 35.4 (27.6-45.6) Mean: 33.5 (24.8-40.7) Mean: 32.4 (25.1-40.7) Mean: 31.6 (24.0-39.2) Mean: 31.6 (26.9-38.7) Mean: 31.0 (24.6-38.4) Pediatric Reference ranges were obtained from a study by yuridia Stephenson prepared from 1437 samples obtained at 7 different centers using the same coagulation reagent and instrumentation as [facility]. Currently there are no coagulation studies available worldwide for children to 14 days, and no normal ranges. Heparin therapeutic range (represented by Anti-Factor Xa activity of 0.2 - 0.4 U/mL) corresponds to PTT of 56.6 - 109.0 sec. INR Coag (PPP) [Relative time] 1.07 {INR} Invalid Interpretation Code [facility] [facility] Comment on above: Interpretive Data: I NR results are specifically intended to assess patients stabilized on long-term Anticoagulation therapy suggested INR s Less Intensive Anticoagulation 2.0 3.0 Conventional Range 3.0 4.5 PT Coag (PPP) [Time] 12.0 s Normal 9.4 - 12.5 second(s) [facility] Comment on above: Interpretive Data: 1 5 days - 4 weeks 1 - 5 months 6 -11 months 1-5 years 6-10 years 11 -17 years Mean: 11.2 (9.5-12.6) Mean: 11.0 (9.7-12.8) Mean: 11.0 (9.8-13.0) Mean: 11.3 (9.9-13.4) Mean: 11.7 (10.0-14.6) Mean: 11.8 (10.0 - 14.1) Pediatric Reference ranges were obtained from a study by yuridia Stephenson prepared from 1437 samples obtained at 7 different centers using the same coagulation reagent and instrumentation as [facility]. Currently there are no coagulation studies available worldwide for children to 14 days, and no normal ranges. Capillary Glucose POCon 02-11 Glucose [Mass/Vol] 64 mg/dL Normal 55-99 [facility] Comment on above: Result Comment: Tomas saleem RN/MD Performed By: #### 2 [id number] #### [facility] [address] [place] [address] ED Clinical Summaryon 2023 ED Clinical Summary ED Clinical Summary [address] [address] ED Clinical Summary Person Information Name: LEXI TATUM [facility] Age: 78 Years : 1945 Sex: Female Language: Mauritian PCP: STEFAN BEST MD Marital Status: Visit Id: Visit Reason: Chest pain; ALOC Speciality: Acuity: 1 Enc Type: Observation Med Service: Emergency Arrival: 02/26/2024 17:28:58 Discharge: LOS: 000 02:17 Checkin: 02/26/2024 17:28:58 Checkout: 02/26/2024 19:45:18 Dispo Type: Admitted as IP to this [facility] EVENTS: Event Name Event Status Request Date/Time Start Date/Time Complete Date/Time Arrive Complete 02/26/2024 17:28:58 02/26/2024 17:28:58 02/26/2024 17:28:58 Document Home Meds Request 02/26/2024 17:28:58 Triage Complete 02/26/2024 17:28:58 02/26/2024 17:34:55 02/26/2024 17:34:55 Bed Assign Complete 02/26/2024 17:30:11 02/26/2024 17:30:11 02/26/2024 17:30:11 Dr Exam Complete 02/26/2024 17:30:11 02/26/2024 17:30:26 02/26/2024 17:30:26 RN Exam Complete 02/26/2024 17:30:11 02/26/2024 19:40:00 02/26/2024 19:40:00 Registration Complete 02/26/2024 17:30:26 02/26/2024 17:55:32 02/26/2024 17:55:32 STEMI Complete 02/26/2024 17:30:34 02/26/2024 19:02:26 02/26/2024 19:02:26 EKG Complete 02/26/2024 17:30:40 02/26/2024 17:32:15 Meds Admin Request 02/26/2024 17:31:42 Pending Labs Request 02/26/2024 17:31:42 Lab Complete 02/26/2024 17:31:42 02/26/2024 18:07:33 Patient Care Request 02/26/2024 17:31:42 X-Ray Complete 02/26/2024 17:31:42 02/26/2024 17:37:21 02/26/2024 17:47:41 RT Request 02/26/2024 17:31:42 Bed Request Cancel 02/26/2024 17:31:42 02/26/2024 18:06:48 Reg Bed Request Cancel 02/26/2024 17:31:42 02/26/2024 17:55:32 02/26/2024 18:06:48 Admit Request 02/26/2024 17:31:42 Meds Admin Cancel 02/26/2024 17:33:32 02/26/2024 17:38:35 Pending Labs Complete 02/26/2024 17:36:35 02/26/2024 17:36:35 02/26/2024 18:07:33 Lab Complete 02/26/2024 17:36:35 02/26/2024 17:36:35 02/26/2024 18:07:33 CT Complete 02/26/2024 17:39:07 02/26/2024 18:27:49 02/26/2024 18:49:05 Pending Labs Request 02/26/2024 17:39:07 Pending Labs Complete 02/26/2024 17:39:50 02/26/2024 17:39:50 02/26/2024 17:42:01 Blood Collect Start 02/26/2024 17:39:50 02/26/2024 17:39:50 Wet Read Request 02/26/2024 17:47:41 Reg Complete Request 02/26/2024 17:55:32 Bed Request Request 02/26/2024 18:07:02 Reg Bed Request Complete 02/26/2024 18:07:02 02/26/2024 18:25:23 02/26/2024 18:25:23 Admit Request 02/26/2024 18:07:02 Patient Care Request 02/26/2024 18:25:24 Patient Care Request 02/26/2024 18:25:24 Medicare Form Complete 02/26/2024 18:25:25 02/26/2024 18:39:22 Patient Care Request 02/26/2024 18:25:25 Patient Care Request 02/26/2024 18:25:25 Meds Admin Request 02/26/2024 18:50:00 Pending Labs Request 02/26/2024 18:50:00 Lab Request 02/26/2024 18:50:00 RT Request 02/26/2024 18:50:00 Pending Labs Complete 02/26/2024 18:52:42 02/26/2024 18:52:42 02/26/2024 18:52:42 Patient Care Request 02/26/2024 18:53:39 Pending Labs Request 02/26/2024 18:53:39 Lab Request 02/26/2024 18:53:39 Meds Admin Request 02/26/2024 18:53:39 RT Request 02/26/2024 18:53:39 Meds Admin Request 02/26/2024 18:56:43 Patient Care Request 02/26/2024 18:56:43 Pending Labs Request 02/26/2024 18:56:43 Meds Admin Request 02/26/2024 18:57:34 Patient Care Request 02/26/2024 18:57:34 ADDRESS: [address] [place] [phone] PHYS DOC NOTES: MEDICAL INFORMATION: Prescriptions Given: PATIENT EDUCATION INFORMATION: Instructions: Follow up: DIAGNOSIS: 1:Sepsis; 2:Urinary tract infection; 3:Acute kidney injury; 4:Generalized weakness; 5:Diabetes; 6:Pure hypercholesterolemi a; 7:Class 3 severe obesity with serious comorbidity in adult; 8:Coronary artery disease; 9:On deep vein thrombosis (DVT) prophylaxis Normal [facility] ED Patient Education Noteon 02-26-2024 ED Patient Education Note ED Patient Education Note Normal [facility] ED Patient Summaryon 024 ED Patient Summary ED Patient Summary [place] [id number] Patient Discharge Instructions Person Information Name: LEXI TATUM Age: 78 Years Arrival Date: 02/26/2024 17:28:58 Discharge Diagnosis: 1:Sepsis; 2:Urinary tract infection; 3:Acute kidney injury; 4:Generalized weakness; 5:Diabetes; 6:Pure hypercholesterolemi a; 7:Class 3 severe obesity with serious comorbidity in adult; 8:Coronary artery disease; 9:On deep vein thrombosis (DVT) prophylaxis Primary Care Physician: STEFAN BEST MD Provider Information Primary Provider: [employer] Salesperson:Teo Gupta PA-C The exam and treatment you received in the Emergency Department were for an urgent problem and are not intended as complete care. It is important that you follow up with a doctor, nurse practitioner, or physician?s state tested nursing assistant for ongoing care. If your symptoms become worse or you do not improve as expected and you are unable to reach your usual health care provider, you should return to the Emergency Department. We are available 24 hours a day. LEXI TATUM has been given the following list of patient education materials, prescriptions and follow-up instructions: Follow-up Instructions: In the event that this physician does not participate in your insurance network, please consult with your insurance company to find a nearby participating provider. Patient Education Materials: A MESSAGE TO ALL PATIENTS REGARDING OPIOIDS PRESCRIPTION OPIOIDS: WHAT YOU NEED TO KNOW Prescription opioids can be used to help relieve qknxzaky-[id number]-pwfoqg pain and are often prescribed following a surgery or injury, or for certain health conditions. These medications can be an important part of the treatment but also come with serious risks. It is important to work with your healthcare provider to make sure you are getting the safest, most effective care. WHAT ARE THE RISKS AND SIDE EFFECTS OF OPIOID USE? Prescription opioids carry serious risks of addiction and overdose, especially with prolonged use. An opioid overdose, often marked by slowed breathing, can cause sudden . The use of prescription opioids can have a number of side effects as well, even when taken as directed: ? Tolerance?meaning you might need to take more of the medication for the same pain relief ? Physical dependence?meaning you have symptoms of withdrawal when a medication is stopped ? Increased sensitivity to pain ? Constipation ? Nausea, vomiting, and dry mouth ? Sleepiness and dizziness ? Confusion ? Depression ? Low levels of testosterone that can result in lower sex drive, energy, and strength ? Itching and sweating RISKS ARE GREATER WITH: ? History of drug misuse, substance use disorder, or overdose ? Mental health conditions (such as depression or anxiety) ? Sleep apnea ? Older age (65 years and older) ? Avoid alcohol while taking prescription opioids. Also, unless specifically advised by your health care provider, medications to avoid include: ? Benzodiazepines (such as Xanax or Valium) ? Muscle relaxants (such as Soma or Flexeril) ? Hypnotics (such as Ambien or Lunesta) ? Other prescription opioids KNOW YOUR OPTIONS Talk to your health care provider about ways to manage your pain that don?t involve prescription opioids. Some of these options may actually work better and have fewer risks and side effects. Options may include: ? Pain relievers such as acetaminophen, ibuprofen, and naproxen ? Some medication that are also used for depression or seizures ? Physical therapy and exercise ? Cognitive behavioral therapy, a psychological, goal-directed approach, in which patients learn how to modify physical, behavioral, and emotional triggers of pain and stress. IF YOU ARE PRESCRIBED OPIOIDS FOR PAIN: ? Never take opioids in greater amounts or more often than prescribed. ? Follow up with your primary health care provider. o Work together to create a plan on how to manage your pain. o Talk about ways to help manage your pain that don?t involve prescription opioids. o Talk about any and all concerns and side effects. ? Help prevent misuse and abuse o Never sell or share prescription opioids. o Never use another person?s prescription opioids. ? Store prescription opioids in a secure place and out of reach of others (this may include visitors, children, friends, and family). ? Safely dispose of unused prescription opioids: Find your community drug take-back program or your pharmacy mail-back program, or flush them down the toilet, following guidance from the Food and Drug Administration (www.fda.gov/Drugs/ ResourcesForYou). ? Visit www.cdc.gov/drugove rdose to learn about the risks of opioids abuse and overdose. ? If you believe you may be struggling with addiction, tell your health critical care clinical nurse specialist and ask fo (more content not included)... Normal [facility] HEMATOLOGYOrdered By: SYSTEM SYSTEM on 02-26-2024 Basophils/100 WBC (Bld) 1.0 % Normal 0.0 - 2.0 % Remisol Heme Basophils/Leukocyte s Auto (Bld) [Pure # fraction] 0.1 E9/L Normal 0.0 - 0.2 E9/L Remisol Heme Eosinophils (Bld) [#/Vol] 0.1 E9/L Normal 0.0 - 0.5 E9/L Remisol Heme Eosinophils/100 WBC (Bld) 0.5 % Normal 0.0 - 8.0 % Remisol Heme Erythrocyte distribution width (RBC) [Ratio] 15.8 % High 10.9 - 14.2 % Remisol Heme Hematocrit (Bld) [Volume fraction] 34.4 % Normal 34.0 - 46.0 % Remisol Heme Hemoglobin (Bld) [Mass/Vol] 10.8 g/dL Low 12.0 - 16.0 gm/dL Remisol Heme Lymphocytes (Bld) [#/Vol] 1.1 E9/L Normal 1.0 - 4.0 E9/L Remisol Heme Lymphocytes/100 WBC (Bld) 8.4 % Low 14.0 - 50.0 % Remisol Heme MCH (RBC) [Entitic mass] 31.4 pg Normal 27.0 - 34.0 pg Remisol Heme MCHC (RBC) [Mass/Vol] 31.5 g/dL Normal 31.4 - 36.0 gm/dL Remisol Heme MCV (RBC) [Entitic vol] 99.8 fL Normal 80.0 - 100.0 fL Remisol Heme Monocytes (Bld) [#/Vol] 1.0 E9/L Normal 0.2 - 1.0 E9/L Remisol Heme Monocytes/100 WBC (Bld) 7.9 % Normal 4.0 - 14.0 % Remisol Heme Neutrophils (Bld) [#/Vol] 10.5 E9/L High 2.0 - 7.5 E9/L Remisol Heme Neutrophils/100 WBC (Bld) 82.2 % High 36.0 - 75.0 % Remisol Heme Platelet mean volume (Bld) [Entitic vol] 8.8 fL Normal 6.4 - 10.8 fL Remisol Heme Platelets (Bld) [#/Vol] 211.0 E9/L Normal 150.0 - 500.0 E9/L Remisol Heme RBC (Bld) [#/Vol] 3.4 E12/L Low 4.3 - 5.9 E12/L Re misol Heme WBC corrected for nucl RBC Auto (Bld) [#/Vol] 12.8 E9/L High 4.0 - 11.0 E9/L Remisol Heme Lactic Acidon 02-26-2024 Lactic Acid Lvl 0.6 mmol/L Normal 0.5-2.2 [facility] Comment on above: Performed By: #### 2 [id number] #### [facility] [address] [place] [address] No Panel InformationOrdered By: [facility] on 02-26-2024 Blood Culture Charcoal No growth at 3 days. Final to follow at 7 days. [facility] PT & PTTon 02-26-2024 aPTT Coag (PPP) [Time] 30.9 second(s) Normal 25.1-36.5 [facility] Comment on above: Result Comment: Para meter 15 days - 4 weeks 1 - 5 months 6 - 11 months 1 - 5 years 6 - 10 years 11 - 17 years PTT Mean: 35.4 (27.6-45.6) Mean: 33.5 (24.8-40.7) Mean: 32.4 (25.1-40.7) Mean: 31.6 (24.0-39.2) Mean: 31.6 (26.9-38.7) Mean: 31.0 (24.6-38.4) Pediatric Reference ranges were obtained from a study by Sharath Schmidt et al. prepared from 1437 samples obtained at 7 different centers using the same coagulation reagent and instrumentation as [facility]. Currently there are no coagulation studies available worldwide for children to 14 days, and no normal ranges. Heparin therapeutic range (represented by Anti-Factor Xa activity of 0.2 - 0.4 U/mL) corresponds to PTT of 56.6 - 109.0 sec. Performed By: #### 1 [id number] #### [facility] [address] [place] [address] INR Coag (PPP) [Relative time] 1.07 {INR} Invalid Interpretation Code [facility] Comment on above: Result Comment: INR results are specifically intended to assess patients stabilized on long-term Anticoagulation therapy suggested INR?s ?Less Intensive Anticoagulation? 2.0 ? 3.0 Conventional Range 3.0 ? 4.5 Performed By: #### 1 [id number] #### [facility] [address] [place] [address] PT Coag (PPP) [Time] 12.0 second(s) Normal 9.4-12.5 [facility] Comment on above: Result Comment: 15 d ays - 4 weeks 1 - 5 months 6 -11 months 1- 5 years 6-10 years 11 -17 years Mean: 11.2 (9.5-12.6) Mean: 11.0 (9.7-12.8) Mean: 11.0 (9.8-13.0) Mean: 11.3 (9.9-13.4) Mean: 11.7 (10.0-14.6) Mean: 11.8 (10.0 - 14.1) Pediatric Reference ranges were obtained from a study by Sharath Schmidt et al. prepared from 1437 samples obtained at 7 different centers using the same coagulation reagent and instrumentation as [facility]. Currently there are no coagulation studies available worldwide for children to 14 days, and no normal ranges. Performed By: #### 1 [id number] #### [facility] [address] [place] [address] Troponin 0 Hr.on 02-26-2024 Troponin HS 74.90 pg/mL Abnormal 10.10-27.10 [facility] Comment on above: Result Comment: Crit ical Result Verified by Repeat Analysis Critical Result I_TnIHS:74.9 Called to and read back by: TEO PATRICK RN at: 02/26/2024 18:18:39 by:MAICOL The 95% CI (Confidence Interval) PPV (Positive Predictive Value) for myocardial infarction in females is 38 pg/mL, in males 51 pg/mL. The results should be used in conjunction with clinical conditions of myocardial infarction. (Access High Sensitivity Troponin I Instructions For Use, Agendia, February 2018) Performed By: #### 1 [id number] #### [facility] [address] [place] [address] Troponin 1 Hr.on 02-26-2024 Troponin HS 70.30 pg/mL Abnormal 10.10-27.10 [facility] Comment on above: Order Comment: 1830 Result Comment: Crit ical Result Verified by Previous Result The 95% CI (Confidence Interval) PPV (Positive Predictive Value) for myocardial infarction in females is 38 pg/mL, in males 51 pg/mL. The results should be used in conjunction with clinical conditions of myocardial infarction. (Access High Sensitivity Troponin I Instructions For Use, Agendia, February 2018) Performed By: #### 1 [id number] #### [facility] [address] [place] [address] Troponin 3 Hr.on 02-26-2024 Troponin HS 59.70 pg/mL Abnormal 10.10-27.10 [facility] Comment on above: Result Comment: Crit ical Result Verified by Previous Result Critical Result I_TnIHS:59.7 Called to and read back by: AMANDA PRESLEY at: 02/26/2024 21:24:01 by:[id number] The 95% CI (Confidence Interval) PPV (Positive Predictive Value) for myocardial infarction in females is 38 pg/mL, in males 51 pg/mL. The results should be used in conjunction with clinical conditions of myocardial infarction. (Access High Sensitivity Troponin I Instructions For Use, Agendia, February 2018) Performed By: #### 1 [id number] #### [facility] [address] [place] [address] UA with Cult Rflxon 02-26-20 Type of Urine collection method Random Urine Normal [facility] Comment on above: Performed By: #### 4 [id number] #### [facility] [address] [place] [address] Type of Urine collection method Clean Catch Normal [facility] Comment on above: Performed By: #### 4 [id number] #### [facility] [address] [place] [address] eGFRon 02-26-2024 eGFR 28 mL/min/1.73 m2 Low >=59 [facility] Comment on above: Order Comment: Order added by Discern Expert. Performed By: #### 1 [id number] #### [facility] [address] [place] [address] Ambulatory Visit Summaryon 0 02-10-2024 Ambulatory Visit Summary Ambulatory Visit Summary LEXI TATUM :1945 Visit Date:02/10/2024 Ambulatory Visit Instructions Your Diagnosis Retroperitoneal fibrosis Hydronephrosis Chronic kidney disease, stage 3 unspecified Your Care Team Attending Physician - Yaniv NATARAJAN MD Primary Care Physician - Maxine Sanchez This Is Your Medications List Contact prescribing physician if questions or concerns Misc Prescription (Misc DME Prescription) acetaminophen (Tylenol) allopurinol (allopurinol 300 mg Tab) aspirin (aspirin 81 mg Oral EC Tab) carvedilol (carvedilol 25 mg Tab) cholecalciferol (cholecalciferol 1000 intl units oral capsule) clopidogrel (Plavix 75 mg Tab) docusate (Colace) furosemide (furosemide 40 mg Tab) gabapentin (gabapentin 300 mg Cap) insulin aspart (insulin aspart 100 units/mL injectable solution) insulin degludec (Tresiba FlexTouch 100 units/mL subcutaneous solution) insulin glargine (Basaglar KwikPen 100 units/mL subcutaneous solution) insulin lispro (HumaLOG 100 units/mL injectable solution) oxybutynin (oxybutynin 10 mg ER Tab) potassium chloride (potassium chloride 10 mEq ER Tab) rosuvastatin (rosuvastatin 5 mg Tab) Procedures Performed Cataract surgery, section, History of coronary artery bypass grafting... Discharge Vitals Heart Rate (Peripheral) 78 Respiratory Rate 16 Blood Pressure 144/62 Height 150 cm Height 59 in Weight 75 kg Weight 165 lb BMI 33.33 What to do next You Need to Schedule the Following Appointments Follow Up with REESE MARLOW, Yaniv Vela, PATO When: Where: [address] [address]- Medications What How Much When Why Instructions Unchanged acetaminophen (Tylenol) 650 Milligram By Mouth Contact prescribing physician if questions or concerns Unchanged allopurinol (allopurinol 300 mg Tab) 1 Tablets By Mouth Every day Contact prescribing physician if questions or concerns Unchanged aspirin (aspirin 81 mg Oral EC Tab) Oral Contact prescribing physician if questions or concerns Unchanged carvedilol (carvedilol 25 mg Tab) 1 Tablets 2 times a day Oral Contact prescribing physician if questions or concerns Unchanged cholecalciferol (cholecalciferol 1000 intl units oral capsule) 1 Capsules By Mouth Every day Oral Contact prescribing physician if questions or concerns Unchanged clopidogrel (Plavix 75 mg Tab) 1 Tablets Every day Oral Contact prescribing physician if questions or concerns Unchanged docusate (Colace) By Mouth Every day Contact prescribing physician if questions or concerns Unchanged furosemide (furosemide 40 mg Tab) 1 Tablets Every day 30 tab(s) Contact prescribing physician if questions or concerns Unchanged gabapentin (gabapentin 300 mg Cap) 1 Capsules By Mouth 2 times a day Oral Contact prescribing physician if questions or concerns Unchanged insulin aspart (insulin aspart 100 units/ mL injectable solution) See instructions 20 unit(s) subcutaneous as needed. follow sliding scale Contact prescribing physician if questions or concerns Unchanged insulin degludec (Tresiba FlexTouch 100 units/ mL subcutaneous solution) 20 Units Subcutaneous As Directed using sliding scale as needed Contact prescribing physician if questions or concerns Unchanged insulin glargine (Basaglar KwikPen 100 units/ mL subcutaneous solution) 50 Units Subcutaneous Every day Contact prescribing physician if questions or concerns Unchanged insulin lispro (HumaLOG 100 units/ mL injectable solution) 20 Units Subcutaneous As Directed Chronic kidney disease, stage 3 unspecified as needed per sliding scale Contact prescribing physician if questions or concerns Unchanged Misc Prescription (Misc DME Prescription) See instructions Type 1 diabetes True Metrix Test Strips Check AC&HS Contact prescribing physician if questions or concerns Unchanged oxybutynin (oxybutynin 10 mg ER Tab) 1 Tablets By Mouth Every day Wellness examination BMI 40.0-44.9, adult Former smoker Type 1 diabetes CKD (chronic kidney disease) Gout Pure hypercholesterolemi a Vitamin D deficiency Urinary incontinence Contact prescribing physician if questions or concerns Unchanged potassium chloride (potassium chloride 10 mEq ER Tab) 1 Tablets By Mouth Every day Oral Contact prescribing physician if questions or concerns Unchanged rosuvastatin (rosuvastatin 5 mg Tab) 1 Tablets By Mouth Every day Contact prescribing physician if questions or concerns Allergies atorvastatin (Myalgia) pravastatin (Unknown) Problems Ongoing - Any problem that you are currently receiving treatment for. 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 Normal [facility] Urology Office/Clinic Noteon 02-10-2024 Urology Office/Clinic Note Urology Office/Clinic Note Chief Complaint follow up HPI Staff Lexi is a 78 y.o. female here for [facility] follow up stent placement 01/22/24. S/P cysto/bilateral RG/stent 01/22/24. Urology consult done on 01/22/24 due to hydronephrosis. Dysuria: denies pain or burning Incomplete bladder emptying: denies Hematuria: denies visible blood Frequency: denies Urgency: yes Nocturia: denies Stream: denies hesitancy, yes weaker stream Leaking: yes Post void dripping: denies Wearing pads/ Depends: yes wears depends daily, changes 3x a day Urge incontinence: yes Stress incontinence: yes Incontinence without Sensory Awareness: yes when she is sleeping Abdominal pain: denies Flank pain: denies Sexual complaints: denies History of Present Illness Tests reviewed: reviewed ER notes and labs, consultation notes, CT scan I have reviewed the previous health record information and history for this patient from Dr. Natarajan and external providers. I have reviewed and verified the staff HPI to be accurate for this encounter. Review of Systems PHQ Score Initial Depression Screen Score: 0 SCORE ROS - Provider Constitutional: denies weight loss, denies hot flashes. Eyes: denies eye problems. Gastrointestinal: denies nausea, denies vomiting. Cardiovascular: denies chest pain or angina. Integumentary: no dryness Musculoskeletal: denies musculoskeletal symptoms. ENMT: denies otolaryngeal symptoms. Respiratory: no shortness of breath. Heme/Lymph: denies easy bleeding tendency, denies easy bruising tendency. Psychiatric: no confusion, no anxiety. Genitourinary: See HPI. Physical Exam Vitals & Measurements HR: 78(Peripheral) RR: 16 BP: 144/62 HT: 59 in HT: 150 cm WT: 75 kg WT: 165 lb BMI: 33.33 General Appearance: alert , no acute distress, well nourished, well developed female. Assessment/Plan Lexi is a 78 yo female new pt here for f[place]u [place] [facility] [place] 1. 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 AP wo con 01/22/24 [facility] [place] Bilateral hydronephrosis and hydroureter to level of pelvic inlet wo definitive obstructing mass or stone. Underlying stricture possible related to pt's aortic bypass cannot be excluded. S/p Cysto/Bilat RGP/Bilat stent placement 01/23/24. Renal fxn: 01/23/24 - GFR 27 01/25/24 - GFR 28 Discussed renal function will not likely improve given underlying CKD. Educated pt on possible etiologies of hydro and fibrosis. Discussed possible referral to tertiary care center for operative intervention. Alternative option would be chronic stent placement which would require exchanges q3mos. Educated pt on risk of stent encrustation, risk for infection, and changes in urinary pattern. Also discussed obtaining a second opinion to further discuss options. Pt prefers to be more conservative with treatment and proceed with stent exchanges. -Will schedule Cysto with Bilateral Stent Exchange. The procedure risks, benefits, details, and treatment alternatives have been discussed. These include the need for additional procedures, bleeding, infection, injury to the ureter, moderate to severe bladder irritation from the stent (with frequent urination, urgency, urinary leakage), moderate flank discomfort, among others. Stent removal or changes may also be required in the future. Full informed consent has been obtained. Will order General anesthesia. -Consider balloon dilatation of scar -Will contact Dr. Ashby to discuss our plan for pt 2. Hydronephrosis (N13.30: Unspecified hydronephrosis) See #1. 3. Chronic kidney disease, stage 3 unspecified (N18.30: Chronic kidney disease, stage 3 unspecified) Follows w/ Dr. Ashby for nephrology. See #1. 4. 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 (T19.1XXA: 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, initial encounter) See #1. The patient is here with her today. She was seen in consultation for bilateral hydronephrosis in the face of chronic renal failure and back and generalized abdominal discomfort. She states she has not had any real change and never really had much discomfort at all in the beginning. CT scan had demonstrated hydronephrosis during her workup which prompted the urologic consultation and subsequent operative intervention which consisted of cystoscopy, bilateral retrograde pyelograms and the bilateral ureteral stents. She has not had improvement in her renal function at least a day or so after her stent placement. We discussed options including referral to the [place] [facility] for consideration of ureterolysis. She is not interested in any major operations. She does know that this may commit her to intermittent stent changes at least every 3 months or so until we establish that she has not a rapid stent encrustation patient Therefore we will put her on the schedule for a stent change around April 2024. In the meantime I will try to get a hold of her courseware developer Dr. Ashyb. GFR was around 28 at last [facility] (more content not included)... Normal [facility] Comment on above: Result Comment: Elec tronically Signed By: REESE MARLOW, Yaniv Mcarthur.br\Date and Time Signed: 02/10/24 16:40 EDT Automated basophil %Ordered By: Norberto Pires on 01-25-2024 Basophils/100 WBC (Bld) 0.5 % Normal . [facility] Comment on above: Performed By: #### P T, BMP, PTT, CBC #### [facility] [address] [place] [address] Automated basophil countOrde red By: Norberto Pires on 01-25-2024 Basophils (Bld) [#/Vol] 0.0 10*3/uL Normal 0.0-0.2 [facility] Comment on above: Result Comment: PERF ORMED BY: [place] [address] PATHOLOGIST PACK PULLER CORAL BECKETT M.D. Performed By: #### P T, BMP, PTT, CBC #### [facility] [address] [place] [address] Automated blood monocyte cou ntOrdered By: Norberto Pires on 01-25-2024 Monocytes (Bld) [#/Vol] 0.8 10*3/uL Normal 0.0-0.8 [facility] Comment on above: Performed By: #### P T, BMP, PTT, CBC #### [address] Automated eosinophil %Ordere d By: Norberto Pires on 01-25-2024 Eosinophils/100 WBC (Bld) 3.2 % Normal . [facility] Comment on above: Performed By: #### P T, BMP, PTT, CBC #### [address] Automated eosinophil countOr dered By: Norberto Pires on 01-25-2024 Eosinophils (Bld) [#/Vol] 0.3 10*3/uL Normal 0.0-0.45 [facility] Comment on above: Performed By: #### P T, BMP, PTT, CBC #### [address] Automated monocyte %Ordered By: Norberto Pires on 01-25-2024 Monocytes/100 WBC (Bld) 9.1 % Normal . [facility] Comment on above: Performed By: #### P T, BMP, PTT, CBC #### [address] Automated neutrophil %Ordere d By: Norberto Pires on 01-25-2024 Neutrophils/100 WBC (Bld) 64.6 % Normal . [facility] Comment on above: Performed By: #### P T, BMP, PTT, CBC #### [address] Basic Metabolic Panelon 01-11 Creatinine Clr Calc Pharmacy 24.11 Normal [facility] Comment on above: Result Comment: PERF ORMED BY: [place] [address] PATHOLOGIST PACK PULLER CORAL BECKETT M.D. Performed By: #### P T, BMP, PTT, CBC #### [place] [address] [place] GFR/1.73 sq M.predicted MDRD (S/P/Bld) [Vol rate/Area] 28.482 mL/min/{1.73_m2} Normal [facility] Comment on above: Performed By: #### P T, BMP, PTT, CBC #### [facility] [address] Calcium [Mass/volume] in Ser um or PlasmaOrdered By: Norberto Pires on 01-25-2024 Calcium [Mass/Vol] 8.6 mg/dL Normal 8.6-10.3 [facility] Comment on above: Performed By: #### P T, BMP, PTT, CBC #### [address] Capillary blood glucose lei urement by glucometer (mass/volume)Ordered By: Norberto Pires on 01-25-2024 Glucose [Mass/Vol] 149 mg/dL Normal [facility] Comment on above: Random Glucose Refer ence Range is dependent on time and content of last meal. Glucose of more than 200 mg/dL in a nonstressed, ambulatory subject supports the diagnosis of Diabetes Mellitus. Result Comment: [place] Glucose Reference Range is dependent on time and content of last meal. Glucose of more than 200 mg/dL in a nonstressed, ambulatory subject supports the diagnosis of Diabetes Mellitus. PERFORMED BY: [place] [address] PATHOLOGIST PACK PULLER CORAL BECKETT M.D. Performed By: #### H S TROP, CKMB, CK #### [address] Carbon dioxide, total [Moles /volume] in Serum or PlasmaOrdered By: Norberto Pires on 01-25-2024 CO2 [Moles/Vol] 27.5 mmol/L Normal 21.0-31.0 [facility] Comment on above: Performed By: #### P T, BMP, PTT, CBC #### [address] Chloride [Moles/volume] in [place] or PlasmaOrdered By: Norberto Pires on 01-25-2024 Chloride [Moles/Vol] 106 mmol/L Normal 98-107 [facility] Comment on above: Performed By: #### P T, BMP, PTT, CBC #### [facility] [address] [place] [address] Complete Blood Count Auto Di ffon 01-25-2024 Mean Corpuscular HGB Conc 32.1 g/dL Normal 32.0-35.0 [facility] Comment on above: Performed By: #### P T, BMP, PTT, CBC #### [facility] [address] [place] [address] NRBC% 0.1 /100{WBC} Normal 0-0.5 [facility] Comment on above: Performed By: #### P T, BMP, PTT, CBC #### [facility] [address] [place] [address] Creatinine [Mass/volume] in Serum or PlasmaOrdered By: Norberto Pires on 01-25-2024 Creatinine [Mass/Vol] 1.80 mg/dL High 0.60-1.20 [facility] Comment on above: Performed By: #### P T, BMP, PTT, CBC #### [address] Erythrocyte distribution wid th [Ratio] by Automated countOrdered By: Norberto Pires on 01-25-2024 Erythrocyte distribution width (RBC) [Ratio] 17.3 % High 11.9-15.3 [facility] Comment on above: Performed By: #### P T, BMP, PTT, CBC #### [facility] [address] [place] [address] [place] Erythrocytes [#/volume] in B lood by Automated countOrdered By: Norberto Pires on 01-25-2024 RBC (Bld) [#/Vol] 3.00 10*6/uL Low 3.60-5.00 [facility] Comment on above: Performed By: #### P T, BMP, PTT, CBC #### [address] Glucose Poct Glucometerson 0 01-25-2024 Glucose [Mass/Vol] 79 mg/dL Normal [facility] Comment on above: Result Comment: [place] om Glucose Reference Range is dependent on time and content of last meal. Glucose of more than 200 mg/dL in a nonstressed, ambulatory subject supports the diagnosis of Diabetes Mellitus. PERFORMED BY: [place] [address] PATHOLOGIST PACK PULLER CORAL BECKETT M.D. Performed By: #### G LUCRISTI #### Point of Care testing , Glucose [Mass/volume] in Ser um or PlasmaOrdered By: Norberto Pires on 01-25-2024 Glucose [Mass/Vol] 75 mg/dL Normal 70-100 [facility] Comment on above: ADA recommended refe rence rangeRandom Glucose Reference Range is dependent on time and content of last meal. Glucose of more than 200 mg/dL in a nonstressed, ambulatory subject supports the diagnosis of Diabetes Mellitus. Result Comment: [place] om Glucose Reference Range is dependent on time and content of last meal. Glucose of more than 200 mg/dL in a nonstressed, ambulatory subject supports the diagnosis of Diabetes Mellitus. ADA recommended reference range Performed By: #### P T, BMP, PTT, CBC #### [address] Hematocrit [Volume Fraction] of Blood by Automated countOrdered By: Norberto Pires on 01-25-2024 Hematocrit (Bld) [Volume fraction] 30.5 % Low 34.0-46.4 [facility] Comment on above: Performed By: #### P T, BMP, PTT, CBC #### [address] Hemoglobin [Mass/volume] in BloodOrdered By: Norberto Pires on 01-25-2024 Hemoglobin (Bld) [Mass/Vol] 9.8 g/dL Low 11.8-15.4 [facility] Comment on above: Performed By: #### P T, BMP, PTT, CBC #### [address] Leukocytes [#/volume] correc suzi for nucleated erythrocytes in Blood by Automated counOrdered By: Norberto Pires on 01-25-2024 WBC corrected for nucl RBC Auto (Bld) [#/Vol] 8.3 10*3/uL 3.8-11.6 [facility] Leukocytes [#/volume] in Blo od by Automated countOrdered By: Norberto Pires on 01-25-2024 WBC (Bld) [#/Vol] 8.3 10*3/uL Normal 3.8-11.6 [facility] Comment on above: Performed By: #### P T, BMP, PTT, CBC #### [address] Lymphocytes [#/volume] in Bl ood by Automated countOrdered By: Norberto Pires on 01-25-2024 Lymphocytes (Bld) [#/Vol] 1.9 10*3/uL Normal 1.00-4.8 [facility] Comment on above: Performed By: #### P T, BMP, PTT, CBC #### [address] Lymphocytes/100 leukocytes i n Blood by Automated countOrdered By: Norberto Pires on 01-25-2024 Lymphocytes/100 WBC (Bld) 22.6 % Normal . [facility] Comment on above: Performed By: #### P T, BMP, PTT, CBC #### [place] [address] [place] MCH [Entitic mass] by Automa suzi countOrdered By: Norberto Pires on 01-25-2024 MCH (RBC) [Entitic mass] 32.7 pg Normal 24.7-34.3 [facility] Comment on above: Performed By: #### P T, BMP, PTT, CBC #### [address] MCHC Auto (RBC) [Mass/Vol]Or dered By: Norberto Pires on 01-25-2024 MCHC (RBC) [Mass/Vol] 32.1 g/dL 32.0-35.0 [facility] MCV [Entitic volume] by Auto mated countOrdered By: Norberto Pires on 01-25-2024 MCV (RBC) [Entitic vol] 101.8 fL High 80-100 [facility] Comment on above: Performed By: #### P T, BMP, PTT, CBC #### [facility] [address] [place] [address] Neutrophils [#/volume] in Bl ood by Automated countOrdered By: Norberto Pires on 01-25-2024 Neutrophils (Bld) [#/Vol] 5.4 10*3/uL Normal 1.8-7.7 [facility] Comment on above: Performed By: #### P T, BMP, PTT, CBC #### [facility] [address] [place] [address] No Panel InformationOrdered By: Norberto Pires on 01-25-2024 Estimated GFR (CKD-EPI) 28.482 mL/Min [facility] Creatinine Clearance (Chem 24.11 [facility] Nucleated erythrocytes [Pres ence] in Blood by Automated countOrdered By: Norberto Pires on 01-25-2024 Nucleated RBC Auto Ql (Bld) 0.1 /100{WBC} 0-0.5 [facility] Platelet mean volume [Entiti c volume] in Blood by Automated countOrdered By: Norberto Pires on 01-25-2024 Platelet mean volume (Bld) [Entitic vol] 9.1 fL Normal 6.3-10.7 [facility] Comment on above: Performed By: #### P T, BMP, PTT, CBC #### [facility] [address] [place] [address] Platelets [#/volume] in Bloo d by Automated countOrdered By: Norberto Pires on 07-14-2024 Platelets (Bld) [#/Vol] 202 10*3/uL Normal 150-450 [facility] Comment on above: Performed By: #### P T, BMP, PTT, CBC #### [facility] [address] [place] [address] [place] Potassium [Moles/volume] in Serum or PlasmaOrdered By: Norberto Pires on 01-25-2024 Potassium [Moles/Vol] 3.6 mmol/L Normal 3.5-5.1 [facility] Comment on above: Performed By: #### P T, BMP, PTT, CBC #### [address] Serum or plasma anion gap de terminationOrdered By: Norberto Pires on 01-25-2024 Anion gap [Moles/Vol] 10.1 mmol/L Normal 6.0-15.0 [facility] Comment on above: Performed By: #### P T, BMP, PTT, CBC #### [facility] [address] [place] [address] [place] Sodium [Moles/volume] in Ser um or PlasmaOrdered By: Norberto Pires on 01-25-2024 Sodium [Moles/Vol] 140 mmol/L Normal 136-145 [facility] Comment on above: Performed By: #### P T, BMP, PTT, CBC #### [facility] [address] [place] [address] [place] Urea nitrogen [Mass/volume] in Serum or PlasmaOrdered By: Norberto Pires on 01-25-2024 Urea nitrogen [Mass/Vol] 25 mg/dL Normal 7-25 [facility] Comment on above: Performed By: #### P T, BMP, PTT, CBC #### [facility] [address] [place] [address] [place] Alanine aminotransferase [En zymatic activity/volume] in Serum or PlasmaOrdered By: Norberto Pires on 01-24-2024 ALT [Catalytic activity/Vol] 3 U/L Low 7-52 [facility] Comment on above: Performed By: #### G LULS #### Point of Care testing , Albumin [Mass/volume] in Ser um or Plasma by Bromocresol green (BCG) dye binding methoOrdered By: Norberto Pires on 01-24-2024 Albumin BCG dye [Mass/Vol] 3.2 g/dL Low 3.5-5.7 [facility] Alkaline phosphatase [Enzyma tic activity/volume] in Serum or PlasmaOrdered By: Norberto Pires on 01-24-2024 ALP [Catalytic activity/Vol] 49 U/L Normal 34-104 [facility] Comment on above: Performed By: #### G LULS #### Point of Care testing , Aspartate aminotransferase [ Enzymatic activity/volume] in Serum or PlasmaOrdered By: Norberto Pires on 01-24-2024 AST [Catalytic activity/Vol] 10 U/L Low 13-39 [facility] Comment on above: Performed By: #### G BOLS #### Point of Care testing , Bilirubin.total [Mass/volume ] in Serum or PlasmaOrdered By: Norberto Pires on 01-24-2024 Bilirubin [Mass/Vol] 0.2 mg/dL Low 0.3-1.0 [facility] Comment on above: Performed By: #### G LULS #### Point of Care testing , Complete Blood Count Auto Di ffon 01-24-2024 Basophils (Bld) [#/Vol] 0.1 10*3/uL Normal 0.0-0.2 [facility] Comment on above: Result Comment: PERF ORMED BY: [place] [address] PATHOLOGIST PACK PULLER CORAL BECKETT M.D. Performed By: #### H S TROP, CKMB, CK #### [place] [address] [place] Basophils/100 WBC (Bld) 0.7 % Normal . [facility] Comment on above: Performed By: #### H S TROP, CKMB, CK #### [place] [address] [place] Eosinophils (Bld) [#/Vol] 0.3 10*3/uL Normal 0.0-0.45 [facility] Comment on above: Performed By: #### H S TROP CKMB, CK #### [address] Eosinophils/100 WBC (Bld) 3.3 % Normal . [facility] Comment on above: Performed By: #### H S TROP CKMB, CK #### [address] Erythrocyte distribution width (RBC) [Ratio] 17.0 % High 11.9-15.3 [facility] Comment on above: Performed By: #### H S TROP CKMB, CK #### [address] Hematocrit (Bld) [Volume fraction] 31.1 % Low 34.0-46.4 [facility] Comment on above: Performed By: #### H S TROP CKMB, CK #### [address] Hemoglobin (Bld) [Mass/Vol] 10.1 g/dL Low 11.8-15.4 [facility] Comment on above: Performed By: #### H S TROP CKMB, CK #### [address] Lymphocytes (Bld) [#/Vol] 1.5 10*3/uL Normal 1.00-4.8 [facility] Comment on above: Performed By: #### H S TROP CKMB, CK #### [address] Lymphocytes/100 WBC (Bld) 16.3 % Normal . [facility] Comment on above: Performed By: #### H S TROP CKMB, CK #### [address] MCH (RBC) [Entitic mass] 32.7 pg Normal 24.7-34.3 [facility] Comment on above: Performed By: #### H S TROP CKMB, CK #### [address] MCV (RBC) [Entitic vol] 101.2 fL High 80-100 [facility] Comment on above: Performed By: #### H S TROP, CKMB, CK #### [address] Mean Corpuscular HGB Conc 32.3 g/dL Normal 32.0-35.0 [facility] Comment on above: Performed By: #### H S TROP, CKMB, CK #### [address] Monocytes (Bld) [#/Vol] 0.7 10*3/uL Normal 0.0-0.8 [facility] Comment on above: Performed By: #### H S TROP, CKMB, CK #### [address] Monocytes/100 WBC (Bld) 7.7 % Normal . [facility] Comment on above: Performed By: #### H S TROP, CKMB, CK #### [address] Neutrophils (Bld) [#/Vol] 6.8 10*3/uL Normal 1.8-7.7 [facility] Comment on above: Performed By: #### H S TROP, CKMB, CK #### [address] Neutrophils/100 WBC (Bld) 72.0 % Normal . [facility] Comment on above: Performed By: #### H S TROP, CKMB, CK #### [address] NRBC% 0.0 /100{WBC} Normal 0-0.5 [facility] Comment on above: Performed By: #### H S TROP, CKMB, CK #### [address] Platelet mean volume (Bld) [Entitic vol] 9.3 fL Normal 6.3-10.7 [facility] Comment on above: Performed By: #### H S TROP, CKMB, CK #### [facility] [address] Platelets (Bld) [#/Vol] 194 10*3/uL Normal 150-450 [facility] Comment on above: Performed By: #### H S TROP, CKMB, CK #### [facility] [address] RBC (Bld) [#/Vol] 3.08 10*6/uL Low 3.60-5.00 [facility] Comment on above: Performed By: #### H S TROP, CKMB, CK #### [facility] [address] WBC (Bld) [#/Vol] 9.4 10*3/uL Normal 3.8-11.6 [facility] Comment on above: Performed By: #### H S TROP, CKMB, CK #### [address] Comprehensive Metabolic Pane [facility] 01-24-2024 Albumin [Mass/Vol] 3.2 g/dL Low 3.5-5.7 [facility] Comment on above: Performed By: #### G BOLS #### Point of Care testing , Anion gap [Moles/Vol] 10.6 mmol/L Normal 6.0-15.0 [facility] Comment on above: Performed By: #### G BOLS #### Point of Care testing , Calcium [Mass/Vol] 8.4 mg/dL Low 8.6-10.3 [facility] Comment on above: Performed By: #### G LULS #### Point of Care testing , Chloride [Moles/Vol] 108 mmol/L High 98-107 [facility] Comment on above: Performed By: #### G LULS #### Point of Care testing , CO2 [Moles/Vol] 23.7 mmol/L Normal 21.0-31.0 [facility] Comment on above: Performed By: #### G LULS #### Point of Care testing , Creatinine [Mass/Vol] 1.78 mg/dL High 0.60-1.20 [facility] Comment on above: Performed By: #### G LULS #### Point of Care testing , Creatinine Clr Calc Pharmacy 24.14 Normal [facility] Comment on above: Result Comment: PERF ORMED BY: [facility] [address] [place] [address] PATHOLOGIST PACK PULLER CORAL BECKETT M.D. Performed By: #### G LULS #### Point of Care testing , GFR/1.73 sq M.predicted MDRD (S/P/Bld) [Vol rate/Area] 28.867 mL/min/{1.73_m2} Normal [facility] Comment on above: Performed By: #### G LULS #### Point of Care testing , Glucose [Mass/Vol] 152 mg/dL High 70-100 [facility] Comment on above: Result Comment: [facility] Glucose Reference Range is dependent on time and content of last meal. Glucose of more than 200 mg/dL in a nonstressed, ambulatory subject supports the diagnosis of Diabetes Mellitus. ADA recommended reference range Performed By: #### G LULS #### Point of Care testing , Potassium [Moles/Vol] 4.3 mmol/L Normal 3.5-5.1 [facility] Comment on above: Performed By: #### G LULS #### Point of Care testing , Sodium [Moles/Vol] 138 mmol/L Normal 136-145 [facility] Comment on above: Performed By: #### G LULS #### Point of Care testing , Urea nitrogen [Mass/Vol] 26 mg/dL High 7-25 [facility] Comment on above: Performed By: #### G LULS #### Point of Care testing , Glucose Poct Glucometerson 0 01-24-2024 Glucose [Mass/Vol] 130 mg/dL Normal [facility] Comment on above: Result Comment: [facility] Glucose Reference Range is dependent on time and content of last meal. Glucose of more than 200 mg/dL in a nonstressed, ambulatory subject supports the diagnosis of Diabetes Mellitus. PERFORMED BY: [address] [place] [address] PATHOLOGIST PACK PULLER CORAL BECKETT M.D. Performed By: #### H S TROP, CKMB, CK #### [address] Commemt1 Glu2: Cleaned Meter Normal [facility] Comment on above: Result Comment: PERF ORMED BY: [place] [address] PATHOLOGIST PACK PULLER CORAL BECKETT M.D. Performed By: #### H S TROP, CKMB, CK #### [address] Glucose [Mass/Vol] 205 mg/dL Normal [facility] Comment on above: Result Comment: [place] om Glucose Reference Range is dependent on time and content of last meal. Glucose of more than 200 mg/dL in a nonstressed, ambulatory subject supports the diagnosis of Diabetes Mellitus. Performed By: #### H S TROP, CKMB, CK #### [address] Commemt1 Glu2: Cleaned Meter Normal [facility] Comment on above: Result Comment: PERF ORMED BY: [place] [address] PATHOLOGIST PACK PULLER CORAL BECKETT M.D. Performed By: #### G LULS #### Point of Care testing , Glucose [Mass/Vol] 233 mg/dL Normal [facility] Comment on above: Result Comment: [place] om Glucose Reference Range is dependent on time and content of last meal. Glucose of more than 200 mg/dL in a nonstressed, ambulatory subject supports the diagnosis of Diabetes Mellitus. Performed By: #### G LULS #### Point of Care testing , Glucose [Mass/Vol] 163 mg/dL Normal [facility] Comment on above: Result Comment: [place] om Glucose Reference Range is dependent on time and content of last meal. Glucose of more than 200 mg/dL in a nonstressed, ambulatory subject supports the diagnosis of Diabetes Mellitus. PERFORMED BY: [address] [place] [address] PATHOLOGIST PACK PULLER CORAL BECKETT M.D. Performed By: #### G LULS #### Point of Care testing , No Panel InformationOrdered By: Norberto Pires on 01-24-2024 Bedside Glucose Comment Glu2: cleaned meter [facility] Protein [Mass/volume] in Ser um or PlasmaOrdered By: Norberto Pires on 01-24-2024 Protein [Mass/Vol] 6.2 g/dL Low 6.4-8.9 [facility] Comment on above: Performed By: #### G LULS #### Point of Care testing , Serum globulin measurement b y calculation (mass/volume)Ordered By: Norberto Pires on 01-24-2024 Globulin (S) [Mass/Vol] 3.0 g/dL Normal [facility] Comment on above: Performed By: #### G LULS #### Point of Care testing , Serum or plasma albumin/glob ulin mass ratioOrdered By: Norberto Pires on 01-24-2024 Albumin/Globulin [Mass ratio] 1.1 {ratio} Normal [facility] Comment on above: Performed By: #### G LULS #### Point of Care testing , Activated partial thrombopla stin time (aPTT) in platelet poor plasma by coagulation aOrdered By: Norberto Pires on 01-23-2024 aPTT Coag (PPP) [Time] 30.7 s 25.1-36.5 [facility] Comment on above: A hematocrit value g reater than 55% may lead to inaccurate results in coagulation testing. Patients having hematocrit values >55% require a special collection tube for coagulation studies. Please contact the laboratory at [phone] for redraw instructions. Basic Metabolic Panelon 01-11 Anion gap [Moles/Vol] 10.1 mmol/L Normal 6.0-15.0 [facility] Comment on above: Performed By: #### P T, BMP, PTT, CBC #### [facility] [address] [place] [address] [facility] Calcium [Mass/Vol] 8.8 mg/dL Normal 8.6-10.3 [facility] Comment on above: Performed By: #### P T, BMP, PTT, CBC #### [address] Chloride [Moles/Vol] 108 mmol/L High 98-107 [facility] Comment on above: Performed By: #### P T, BMP, PTT, CBC #### [address] CO2 [Moles/Vol] 27.6 mmol/L Normal 21.0-31.0 [facility] Comment on above: Performed By: #### P T, BMP, PTT, CBC #### [address] Creatinine [Mass/Vol] 1.85 mg/dL High 0.60-1.20 [facility] Comment on above: Performed By: #### P T, BMP, PTT, CBC #### [address] Creatinine Clr Calc Pharmacy 23.08 Normal [facility] Comment on above: Result Comment: PERF ORMED BY: [place] [address] PATHOLOGIST PACK PULLER CORAL BECKETT M.D. Performed By: #### P T, BMP, PTT, CBC #### [address] GFR/1.73 sq M.predicted MDRD (S/P/Bld) [Vol rate/Area] 27.561 mL/min/{1.73_m2} Normal [facility] Comment on above: Performed By: #### P T, BMP, PTT, CBC #### [address] Glucose [Mass/Vol] 57 mg/dL Low 70-100 [facility] Comment on above: Result Comment: [place] Glucose Reference Range is dependent on time and content of last meal. Glucose of more than 200 mg/dL in a nonstressed, ambulatory subject supports the diagnosis of Diabetes Mellitus. ADA recommended reference range Performed By: #### P T, BMP, PTT, CBC #### [facility] [address] [place] [address] Potassium [Moles/Vol] 3.7 mmol/L Normal 3.5-5.1 [facility] Comment on above: Performed By: #### P T, BMP, PTT, CBC #### [facility] [address] [place] [address] Sodium [Moles/Vol] 142 mmol/L Normal 136-145 [facility] Comment on above: Performed By: #### P T, BMP, PTT, CBC #### [facility] [address] [place] [address] Urea nitrogen [Mass/Vol] 27 mg/dL High 7-25 [facility] Comment on above: Performed By: #### P T, BMP, PTT, CBC #### [facility] [address] [place] [address] Complete Blood Count Auto Di ffon 01-23-2024 Basophils (Bld) [#/Vol] 0.0 10*3/uL Normal 0.0-0.2 [facility] Comment on above: Result Comment: PERF ORMED BY: [place] [address] PATHOLOGIST PACK PULLER CORAL BECKETT M.D. Performed By: #### G LULS #### Point of Care testing , Basophils/100 WBC (Bld) 0.6 % Normal . [facility] Comment on above: Performed By: #### G LULS #### Point of Care testing , Eosinophils (Bld) [#/Vol] 0.3 10*3/uL Normal 0.0-0.45 [facility] Comment on above: Performed By: #### G LULS #### Point of Care testing , Eosinophils/100 WBC (Bld) 3.7 % Normal . [facility] Comment on above: Performed By: #### G LULS #### Point of Care testing , Erythrocyte distribution width (RBC) [Ratio] 17.1 % High 11.9-15.3 [facility] Comment on above: Performed By: #### G LULS #### Point of Care testing , Hematocrit (Bld) [Volume fraction] 32.4 % Low 34.0-46.4 [facility] Comment on above: Performed By: #### G LULS #### Point of Care testing , Hemoglobin (Bld) [Mass/Vol] 10.3 g/dL Low 11.8-15.4 [facility] Comment on above: Performed By: #### G LULS #### Point of Care testing , Lymphocytes (Bld) [#/Vol] 2.0 10*3/uL Normal 1.00-4.8 [facility] Comment on above: Performed By: #### G LULS #### Point of Care testing , Lymphocytes/100 WBC (Bld) 23.9 % Normal . [facility] Comment on above: Performed By: #### G LULS #### Point of Care testing , MCH (RBC) [Entitic mass] 32.0 pg Normal 24.7-34.3 [facility] Comment on above: Performed By: #### G LULS #### Point of Care testing , MCV (RBC) [Entitic vol] 100.1 fL High 80-100 [facility] Comment on above: Performed By: #### G LULS #### Point of Care testing , Mean Corpuscular HGB Conc 32.0 g/dL Normal 32.0-35.0 [facility] Comment on above: Performed By: #### G LULS #### Point of Care testing , Monocytes (Bld) [#/Vol] 0.6 10*3/uL Normal 0.0-0.8 [facility] Comment on above: Performed By: #### G LULS #### Point of Care testing , Monocytes/100 WBC (Bld) 6.8 % Normal . [facility] Comment on above: Performed By: #### G LULS #### Point of Care testing , Neutrophils (Bld) [#/Vol] 5.3 10*3/uL Normal 1.8-7.7 [facility] Comment on above: Performed By: #### G LULS #### Point of Care testing , Neutrophils/100 WBC (Bld) 65.0 % Normal . [facility] Comment on above: Performed By: #### G LULS #### Point of Care testing , NRBC% 0.1 /100{WBC} Normal 0-0.5 [facility] Comment on above: Performed By: #### G LULS #### Point of Care testing , Platelet mean volume (Bld) [Entitic vol] 9.5 fL Normal 6.3-10.7 [facility] Comment on above: Performed By: #### G LULS #### Point of Care testing , Platelets (Bld) [#/Vol] 198 10*3/uL Normal 150-450 [facility] Comment on above: Performed By: #### G LULS #### Point of Care testing , RBC (Bld) [#/Vol] 3.23 10*6/uL Low 3.60-5.00 [facility] Comment on above: Performed By: #### G LULS #### Point of Care testing , WBC (Bld) [#/Vol] 8.2 10*3/uL Normal 3.8-11.6 [facility] Comment on above: Performed By: #### G LULS #### Point of Care testing , Creatine kinase [Enzymatic a ctivity/volume] in Serum or PlasmaOrdered By: Norberto Pires on 01-23-2024 CK [Catalytic activity/Vol] 30 U/L Normal 30-223 [facility] Comment on above: Order Comment: add o n [id number] Performed By: #### H S TROP, CKMB, CK #### [address] Creatine kinase.MB [Mass/vol ume] in Serum or PlasmaOrdered By: Norberto Pires on 01-23-2024 CK.MB [Mass/Vol] 2.3 ng/mL Normal 0.6-6.3 [facility] Comment on above: Order Comment: add o n [id number] Performed By: #### H S TROP, CKMB, CK #### [facility] [address] [place], [place] [id number] [place] Creatinine Kinase MBon 01-22 CKMB Relative Index 7.6 % High 0.00-2.50 [facility] Comment on above: Order Comment: add o n [id number] Performed By: #### H S TROP, CKMB, CK #### [facility] [address] [place] [address] [place] ECG 12 lead ECGon 01-23-2024 ECG 12 lead ECG [facility] [place] [address] Electrocardiograph Report Signed Patient: Lexi Tatum MR#: [id number] : 1945 Acct:[id number] Age/Sex: 78 / F ADM Date: 01/22/24 Loc: Room: [address] [place] [address] Type: ADM IN Attending Dr: Norberto Pires DO Ordering Provider: Norberto Pires DO Date of Service: 01/23/2407/06/945 ECG/ECG 12 lead ECG: pre-op testing Copies to: Test Reason : Blood Pressure : */* mmHG Vent. Rate : 70 BPM Atrial Rate : 70 BPM P-R Int : 220 ms QRS Dur : 110 ms QT Int : 446 ms P-R-T Axes : 45 43 171 degrees QTcB Int : 481 ms Sinus rhythm with 1st degree AV block Possible Inferior infarct (cited on or before 18-Nov-2016) Anteroseptal infarct (cited on or before 16-Nov-2016) Diffuse nonspecific ST and T wave changes Abnormal ECG When compared with ECG of 23-Jan-2024 08:22, (Unconfirmed) LA interval has increased Confirmed by DESMOND MARLOW [facility] [place] ([id number]) on 01/23/2024 4:34:11 PM Referred By: Electronically Signed By: CHARLOTTE LOGAN MD [facility] Transcribed By: MUS Signed By Charlotte Logan MD, FACC 01/23/24 1634 Normal [facility] ECG 12 lead ECG [facility] [place] [address] [place] [address] Electrocardiograph Report Signed Patient: Lexi Tatum MR#: [id number] : 1945 Acct:[id number] Age/Sex: 78 / F ADM Date: 01/22/24 Loc: Room: [address] [place] [address] Type: ADM IN Attending Dr: Norberto Pires DO Ordering Provider: Norberto Pires DO Date of Service: 01/23/2407/06/500 ECG/ECG 12 lead ECG: pre-op testing Copies to: Test Reason : Blood Pressure : */* mmHG Vent. Rate : 69 BPM Atrial Rate : 69 BPM P-R Int : 178 ms QRS Dur : 112 ms QT Int : 452 ms P-R-T Axes : -4 -1 165 degrees QTcB Int : 484 ms Normal sinus rhythm Minimal voltage criteria for LVH, may be normal variant ( [place] product ) Inferior infarct (cited on or before 18-Nov-2016) Anteroseptal infarct (cited on or before 16-Nov-2016) Diffuse nonspecific ST and T wave changes Abnormal ECG When compared with ECG of 20-Jul-2018 16:21, QRS duration has increased Confirmed by DESMOND [id number] on 01/23/2024 4:33:34 PM Referred By: Electronically Signed By: CHARL[place] LOGAN MD [facility] Transcribed By: MUS Signed By Charlotte Logan MD, FACC 01/23/24 1633 Normal [facility] [place] urethrocystogram retroon 01-23-2024 FL urethrocystogram retro [facility] [place] [address] Fluoroscopy Report Signed Patient: Lexi Tatum MR#: [id number] : 1945 Acct:[id number] Age/Sex: 78 / F ADM Date: 01/22/24 Loc: 3T Room: [address] [place] [address] Type: ADM IN Attending Dr: Norberto Pires DO Copies to: MD Norberto [place] DO Ordering Provider: Yaniv Natarajan MD Date of Service: 01/23/24 FL/FL urethrocystogram retro: RETROGRADE [place] urethrocystogram retro 01/23/2024 3:15 PM SIGNS AND SYMPTOMS: 47 [id number] RETROGRADE PROTOCOL: Intraoperative views of the abdomen and pelvis COMPARISON: None FINDINGS: Intraoperative views demonstrate bilateral hydronephrosis with narrowing of the proximal ureter on the right in the mid ureter on the left focally. Images demonstrate bilateral ureteral stent placement. Cumulative Air Kerma in mGy: 4.7 mGy FL/FL urethrocystogram retro IMPRESSION: Intraoperative views demonstrate bilateral hydronephrosis with narrowing of the proximal ureter on the right in the mid ureter on the left focally. Images demonstrate bilateral ureteral stent placement. Impression dictated by: Rhett Ponce M.D.01/23/2024 7:31 PM Dictation Location: [place] [address] Transcribed By: OMAR 01/23/241930 Dictated By: Rhett Ponce II, MD 01/23/241929 Signed By: 01/23/241930 Normal [facility] Glucose Poct Glucometerson 0 01-23-2024 Glucose [Mass/Vol] 162 mg/dL Normal [facility] Comment on above: Result Comment: [place] om Glucose Reference Range is dependent on time and content of last meal. Glucose of more than 200 mg/dL in a nonstressed, ambulatory subject supports the diagnosis of Diabetes Mellitus. PERFORMED BY: [address] [address] PATHOLOGIST PACK PULLER CORAL BECKETT M.D. Performed By: #### G LULS #### Point of Care testing , Commemt1 Glu2: Cleaned Meter Normal [facility] Comment on above: Result Comment: PERF ORMED BY: [address] [address] PATHOLOGIST PACK PULLER CORAL BECKETT M.D. Performed By: #### G LULS #### Point of Care testing , Glucose [Mass/Vol] 79 mg/dL Normal [facility] Comment on above: Result Comment: [place] om Glucose Reference Range is dependent on time and content of last meal. Glucose of more than 200 mg/dL in a nonstressed, ambulatory subject supports the diagnosis of Diabetes Mellitus. Performed By: #### G LULS #### Point of Care testing , Commemt1 Glu2: Cleaned Meter Normal [facility] Comment on above: Result Comment: PERF ORMED BY: [place] [address] PATHOLOGIST PACK PULLER CORAL BECKETT M.D. Performed By: #### H S TROP, CKMB, CK #### [address] Glucose [Mass/Vol] 97 mg/dL Normal [facility] Comment on above: Result Comment: [place] om Glucose Reference Range is dependent on time and content of last meal. Glucose of more than 200 mg/dL in a nonstressed, ambulatory subject supports the diagnosis of Diabetes Mellitus. Performed By: #### H S TROP, CKMB, CK #### [address] Glucose [Mass/Vol] 75 mg/dL Normal [facility] Comment on above: Result Comment: [place] om Glucose Reference Range is dependent on time and content of last meal. Glucose of more than 200 mg/dL in a nonstressed, ambulatory subject supports the diagnosis of Diabetes Mellitus. PERFORMED BY: [place] [address] PATHOLOGIST PACK PULLER CORAL BECKETT M.D. Performed By: #### G LULS #### Point of Care testing , INR in Platelet poor plasma by Coagulation assayOrdered By: Norberto Pires on 01-23-2024 INR Coag (PPP) [Relative time] 0.9 {INR} Normal [facility] Comment on above: INR Therapeutic Rang e A) Pre- and Peroperative OAT started two weeks before surgery. NOT HIP SURGERY: 1.5 - 2.5 HIP SURGERY: 2 - 3B) Primary and secondary prevention of venous THROMBOSIS: 2 - 3C) Active venous thrombosis, pulmonary embolismand prevention of recurrent venous thrombosis: 2 - 3D) Prevention of arterial thromboembolismincluding patients with mechanical heart valves: 3 - 4.5 Result Comment: INR Therapeutic Range A) Pre- and Peroperative OAT started two weeks before surgery. NOT HIP SURGERY: 1.5 - 2.5 HIP SURGERY: 2 - 3 B) Primary and secondary prevention of venous THROMBOSIS: 2 - 3 C) Active venous thrombosis, pulmonary embolism and prevention of recurrent venous thrombosis: 2 - 3 D) Prevention of arterial thromboembolism including patients with mechanical heart valves: 3 - 4.5 Performed By: #### G LULS #### Point of Care testing , Partial Thromboplastin Timeo n 01-23-2024 aPTT Coag (Bld) [Time] 30.7 s Normal 25.1-36.5 [facility] Comment on above: Result Comment: A he matocrit value greater than 55% may lead to inaccurate results in coagulation testing. Patients having hematocrit values >55% require a special collection tube for coagulation studies. Please contact the laboratory at [phone] for redraw instructions. PERFORMED BY: [place] [address] PATHOLOGIST PACK PULLER CORAL BECKETT M.D. Performed By: #### P T, BMP, PTT, CBC #### [address] Prothrombin time (PT)Ordered By: Norberto Pires on 01-23-2024 PT Coag (PPP) [Time] 11.0 s Normal 9.0-12.9 [facility] Comment on above: A hematocrit value g reater than 55% may lead to inaccurate results in coagulation testing. Patients having hematocrit values >55% require a special collection tube for coagulation studies. Please contact the laboratory at [phone] for redraw instructions. Result Comment: A he matocrit value greater than 55% may lead to inaccurate results in coagulation testing. Patients having hematocrit values >55% require a special collection tube for coagulation studies. Please contact the laboratory at [phone] for redraw instructions. Performed By: #### G LULS #### Point of Care testing , Serum or plasma creatine kin ase MB (CKMB)/total creatine kinase (CK) ratio by calculaOrdered By: Norberto Pires on 01-23-2024 CK.MB Calc [Catalytic fraction] 7.6 % High 0.00-2.50 [facility] Troponin I High Sensitivityo n 01-23-2024 Troponin I High Sensitivity 20.7 pg/mL High 0.0-15.0 [facility] Comment on above: Order Comment: add o n [id number] Result Comment: PERF ORMED BY: [place] [address] PATHOLOGIST PACK PULLER CORAL BECKETT M.D. Performed By: #### H S TROP, CKMB, CK #### [address] Troponin I.cardiac [Mass/vol ume] in Serum or Plasma by Detection limit <= 0.01 ng/Ordered By: Norberto Pires on 01-23-2024 Troponin I.cardiac DL <= 0.01 ng/mL [Mass/Vol] 20.7 pg/mL High 0.0-15.0 [facility] Bacteria [Presence] in Urine by AutomatedOrdered By: Christen Oshea on 01-22-2024 Bacteria Auto Ql (U) Rare [HPF] None Seen [facility] Bilirubin Test strip Ql (U)O rdered By: Christen Oshea on 01-22-2024 Bilirubin Ql (U) Negative Negative [facility] CT abdomen pelvis wo conon 0 01-22-2024 CT abdomen pelvis wo con [facility] [place] [address] [place] [address] CT Scan Report Signed Patient: Lexi Tatum MR#: [id number] : 1945 Acct:[id number] Age/Sex: 78 / F ADM Date: 01/22/24 Loc: ER Room: Type: [facility] ER Attending Dr: Copies to: Alyssa Ramírez MD Ordering Provider: Alyssa Ramírez MD Date of Service: 01/22/24 CT/CT abdomen pelvis wo con: evaluate for stone CT ABDOMEN AND PELVIS WITHOUT INTRAVENOUS CONTRAST: CLINICAL HISTORY: Stone evaluation. COMPARISON: None TECHNIQUE: Spiral images were obtained through the abdomen and pelvis without intravenous contrast. This CT exam was performed using one or more following dose reduction techniques: Automated exposure control, adjustment of the mA and/or kV according to patient size, or use of iterative reconstruction technique. FINDINGS: Lung Bases: [Fibrotic changes involving the lung bases without honeycombing.] Organs:Suboptimal evaluation due to lack of IV contrast. Gallbladder sludge. Splenic granulomas. Liver pancreas and adrenal glands appear unremarkable other than a myelolipoma involving the right adrenal gland[. Bilateral hydronephrosis and hydroureter to the level of the pelvic inlet without definitive obstructing mass or stone. 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 GI: Stomach is grossly unremarkable. Small bowel appears nondilated. No acute colonic abnormality. Left colon diverticulosis.[ Pelvis:[Partially calcified fibroid uterus. No adnexal mass. Urinary bladder is grossly unremarkable.] Peritoneum/Retroper itoneum:No free air, free fluid or lymphadenopathy.[ Abd wall/Bones:Abdomina l wall demonstrates no acute findings. Osseous structures demonstrate degenerative change.[ CT/CT abdomen pelvis wo con IMPRESSION: Bilateral hydronephrosis and hydroureter to the level of the pelvic inlet without obstructing stone or gross mass. Underlying stricture possibly related to the patient's aortic bypass cannot BE excluded. Urology consultation is suggested for further intervention. Gallbladder sludge. Partially calcified fibroid uterus. Impression dictated by: Earnest Iraheta Jr., D.O.01/22/2024 4:28 PM Dictation Location: [place] [address] Transcribed By: [facility] 01/22/24 1628 Dictated By: Earnest Iraheta Jr, DO 01/22/24 1625 Signed By: 01/22/24 1628 Normal [facility] Color of Urine by AutoOrdere d By: Christen Oshea on 01-22-2024 Color (U) Colorless Normal Yellow [facility] Comment on above: Order Comment: Name Collection Type:: Clean-Voided Midstream Performed By: #### P T, BMP, PTT, CBC #### [address] Complete Blood Count Auto Di ffon 01-22-2024 Basophils (Bld) [#/Vol] 0.1 10*3/uL Normal 0.0-0.2 [facility] Comment on above: Result Comment: PERF ORMED BY: [place] [address] PATHOLOGIST PACK PULLER CORAL BECKETT M.D. Performed By: #### P T, BMP, PTT, CBC #### [address] Basophils/100 WBC (Bld) 1.3 % Normal . [facility] Comment on above: Performed By: #### P T, BMP, PTT, CBC #### [address] Eosinophils (Bld) [#/Vol] 0.3 10*3/uL Normal 0.0-0.45 [facility] Comment on above: Performed By: #### P T, BMP, PTT, CBC #### [address] Eosinophils/100 WBC (Bld) 3.3 % Normal . [facility] Comment on above: Performed By: #### P T, BMP, PTT, CBC #### [address] Erythrocyte distribution width (RBC) [Ratio] 17.4 % High 11.9-15.3 [facility] Comment on above: Performed By: #### P T, BMP, PTT, CBC #### [address] Hematocrit (Bld) [Volume fraction] 36.4 % Normal 34.0-46.4 [facility] Comment on above: Performed By: #### P T, BMP, PTT, CBC #### [address] Hemoglobin (Bld) [Mass/Vol] 11.8 g/dL Normal 11.8-15.4 [facility] Comment on above: Performed By: #### P T, BMP, PTT, CBC #### [address] Lymphocytes (Bld) [#/Vol] 1.9 10*3/uL Normal 1.00-4.8 [facility] Comment on above: Performed By: #### P T, BMP, PTT, CBC #### [address] Lymphocytes/100 WBC (Bld) 21.7 % Normal . [facility] Comment on above: Performed By: #### P T, BMP, PTT, CBC #### [address] MCH (RBC) [Entitic mass] 32.3 pg Normal 24.7-34.3 [facility] Comment on above: Performed By: #### P T, BMP, PTT, CBC #### [address] MCV (RBC) [Entitic vol] 99.7 fL Normal 80-100 [facility] Comment on above: Performed By: #### P T, BMP, PTT, CBC #### [address] Mean Corpuscular HGB Conc 32.4 g/dL Normal 32.0-35.0 [facility] Comment on above: Performed By: #### P T, BMP, PTT, CBC #### [address] Monocytes (Bld) [#/Vol] 0.5 10*3/uL Normal 0.0-0.8 [facility] Comment on above: Performed By: #### P T, BMP, PTT, CBC #### [address] Monocytes/100 WBC (Bld) 19.69 % Normal 0.00-20.00 [facility] Comment on above: Performed By: #### P T, BMP, PTT, CBC #### [address] Monocytes/100 WBC (Bld) 5.2 % Normal . [facility] Comment on above: Performed By: #### P T, BMP, PTT, CBC #### [address] Neutrophils (Bld) [#/Vol] 6.1 10*3/uL Normal 1.8-7.7 [facility] Comment on above: Performed By: #### P T, BMP, PTT, CBC #### [address] Neutrophils/100 WBC (Bld) 68.5 % Normal . [facility] Comment on above: Performed By: #### P T, BMP, PTT, CBC #### [address] NRBC% 0.2 /100{WBC} Normal 0-0.5 [facility] Comment on above: Performed By: #### P T, BMP, PTT, CBC #### [address] Platelet mean volume (Bld) [Entitic vol] 9.3 fL Normal 6.3-10.7 [facility] Comment on above: Performed By: #### P T, BMP, PTT, CBC #### [address] Platelets (Bld) [#/Vol] 206 10*3/uL Normal 150-450 [facility] Comment on above: Performed By: #### P T, BMP, PTT, CBC #### [address] RBC (Bld) [#/Vol] 3.65 10*6/uL Normal 3.60-5.00 [facility] Comment on above: Performed By: #### P T, BMP, PTT, CBC #### [address] WBC (Bld) [#/Vol] 8.9 10*3/uL Normal 3.8-11.6 [facility] Comment on above: Performed By: #### P T, BMP, PTT, CBC #### [address] Comprehensive Metabolic Pane michael 01-22-2024 Albumin [Mass/Vol] 3.7 g/dL Normal 3.5-5.7 [facility] Comment on above: Performed By: #### P T, BMP, PTT, CBC #### [address] Albumin/Globulin [Mass ratio] 1.0 {ratio} Normal [facility] Comment on above: Performed By: #### P T, BMP, PTT, CBC #### [address] ALP [Catalytic activity/Vol] 51 U/L Normal 34-104 [facility] Comment on above: Performed By: #### P T, BMP, PTT, CBC #### [address] ALT [Catalytic activity/Vol] 4 U/L Low 7-52 [facility] Comment on above: Performed By: #### P T, BMP, PTT, CBC #### [address] Anion gap [Moles/Vol] 12.5 mmol/L Normal 6.0-15.0 [facility] Comment on above: Performed By: #### P T, BMP, PTT, CBC #### [address] AST [Catalytic activity/Vol] 9 U/L Low 13-39 [facility] Comment on above: Performed By: #### P T, BMP, PTT, CBC #### [address] Bilirubin [Mass/Vol] 0.3 mg/dL Normal 0.3-1.0 [facility] Comment on above: Performed By: #### P T, BMP, PTT, CBC #### [place] [address] [place] Calcium [Mass/Vol] 9.2 mg/dL Normal 8.6-10.3 [facility] Comment on above: Performed By: #### P T, BMP, PTT, CBC #### [place] [address] [place] Chloride [Moles/Vol] 104 mmol/L Normal 98-107 [facility] Comment on above: Performed By: #### P T, BMP, PTT, CBC #### [place] [address] [place] CO2 [Moles/Vol] 26.7 mmol/L Normal 21.0-31.0 [facility] Comment on above: Performed By: #### P T, BMP, PTT, CBC #### [address] Creatinine [Mass/Vol] 2.02 mg/dL High 0.60-1.20 [facility] Comment on above: Performed By: #### P T, BMP, PTT, CBC #### [address] Creatinine Clr Calc Pharmacy 20.74 Normal [facility] Comment on above: Result Comment: PERF ORMED BY: [place] [address] PATHOLOGIST PACK PULLER CORAL BECKETT M.D. Performed By: #### P T, BMP, PTT, CBC #### [address] GFR/1.73 sq M.predicted MDRD (S/P/Bld) [Vol rate/Area] 24.802 mL/min/{1.73_m2} Normal [facility] Comment on above: Performed By: #### P T, BMP, PTT, CBC #### [address] Globulin (S) [Mass/Vol] 3.6 g/dL Normal [facility] Comment on above: Performed By: #### P T, BMP, PTT, CBC #### [address] Glucose [Mass/Vol] 123 mg/dL High 70-100 [facility] Comment on above: Result Comment: [place] om Glucose Reference Range is dependent on time and content of last meal. Glucose of more than 200 mg/dL in a nonstressed, ambulatory subject supports the diagnosis of Diabetes Mellitus. ADA recommended reference range Performed By: #### P T, BMP, PTT, CBC #### [address] Potassium [Moles/Vol] 4.2 mmol/L Normal 3.5-5.1 [facility] Comment on above: Performed By: #### P T, BMP, PTT, CBC #### [address] Protein [Mass/Vol] 7.3 g/dL Normal 6.4-8.9 [facility] Comment on above: Performed By: #### P T, BMP, PTT, CBC #### [address] Sodium [Moles/Vol] 139 mmol/L Normal 136-145 [facility] Comment on above: Performed By: #### P T, BMP, PTT, CBC #### [address] Urea nitrogen [Mass/Vol] 29 mg/dL High 7-25 [facility] Comment on above: Performed By: #### P T, BMP, PTT, CBC #### [address] Dipstick and Microscopicon 0 01-22-2024 Bacteria,Urine Rare Normal None Seen [facility] Comment on above: Order Comment: Name Collection Type:: Clean-Voided Midstream Performed By: #### P T, BMP, PTT, CBC #### [address] Bilirubin,Urine Negative Normal Negative [facility] Comment on above: Order Comment: Name Collection Type:: Clean-Voided Midstream Performed By: #### P T, BMP, PTT, CBC #### [address] Glucose Ql (U) Normal Normal Normal [facility] Comment on above: Order Comment: Name Collection Type:: Clean-Voided Midstream Performed By: #### P T, BMP, PTT, CBC #### [address] Hyaline Casts,Urine 0-8 Normal 0-8 [facility] Comment on above: Order Comment: Name Collection Type:: Clean-Voided Midstream Result Comment: PERF ORMED BY: [place] [address] PATHOLOGIST PACK PULLER CORAL BECKETT M.D. Performed By: #### P T, BMP, PTT, CBC #### [address] Nitrite,Urine Negative Normal Negative [facility] Comment on above: Order Comment: Name Collection Type:: Clean-Voided Midstream Performed By: #### P T, BMP, PTT, CBC #### [address] Occult Blood,Urine Negative Normal Negative [facility] Comment on above: Order Comment: Name Collection Type:: Clean-Voided Midstream Result Comment: PERF ORMED BY: [place] [address] PATHOLOGIST PACK PULLER CORAL BECKETT M.D. Performed By: #### P T, BMP, PTT, CBC #### [address] RBC,Urine 1-2 Normal 0-4 [facility] Comment on above: Order Comment: Name Collection Type:: Clean-Voided Midstream Performed By: #### P T, BMP, PTT, CBC #### [address] Specificy [place],Urine 1.010 Normal 1.001-1.030 [facility] Comment on above: Order Comment: Name Collection Type:: Clean-Voided Midstream Performed By: #### P T, BMP, PTT, CBC #### [address] Squamous Epithelial Cell,Urine 1-2 Normal 0-2 [facility] Comment on above: Order Comment: Name Collection Type:: Clean-Voided Midstream Performed By: #### P T, BMP, PTT, CBC #### [address] Urobilinogen,Urine Normal Normal Normal [facility] Comment on above: Order Comment: Name Collection Type:: Clean-Voided Midstream Performed By: #### P T, BMP, PTT, CBC #### [address] [place] [address] [place] WBC CLUMP, Urine Occasional High None Seen [facility] Comment on above: Order Comment: Name Collection Type:: Clean-Voided Midstream Performed By: #### P T, BMP, PTT, CBC #### [facility] [address] WBC,Urine 5-9 High 0-4 [facility] Comment on above: Order Comment: Name Collection Type:: Clean-Voided Midstream Performed By: #### P T, BMP, PTT, CBC #### [facility] [address] Epithelial cells.squamous [# /area] in Urine sediment by Automated countOrdered By: Christen Oshea on 01-22-2024 Epithelial cells.squamous Auto (Urine sed) [#/Area] 1-2 [HPF] 0-2 [facility] Erythrocytes [#/area] in Uri ne sediment by Automated countOrdered By: Christen Oshea on 01-22-2024 RBC Auto (Urine sed) [#/Area] 1-2 [HPF] 0-4 [facility] Glucose Poct Glucometerson 0 01-22-2024 Glucose [Mass/Vol] 146 mg/dL Normal [facility] Comment on above: Result Comment: [facility] Glucose Reference Range is dependent on time and content of last meal. Glucose of more than 200 mg/dL in a nonstressed, ambulatory subject supports the diagnosis of Diabetes Mellitus. PERFORMED BY: [place] [address] PATHOLOGIST PACK PULLER CORAL BECKETT M.D. Performed By: #### H S TROP, CKMB, CK #### [facility] [address] [place] [address] Glucose [Mass/volume] in Uri ne by Test stripOrdered By: Christen Oshea on 01-22-2024 Glucose Test strip (U) [Mass/Vol] Normal mg/dL Normal [facility] Hemoglobin Test strip Ql (U) Ordered By: Christen Oshea on 01-22-2024 Hemoglobin Ql (U) Negative Negative [facility] Hyaline casts [#/area] in Ur ine sediment by Automated countOrdered By: Christen Oshea on 01-22-2024 Hyaline casts Auto (Urine sed) [#/Area] 0-8 [LPF] 0-8 [facility] Ketones [Presence] in Urine by Test stripOrdered By: Christen Oshea on 01-22-2024 Ketones Ql (U) Negative Normal Negative [facility] Comment on above: Order Comment: Name Collection Type:: Clean-Voided Midstream Performed By: #### P T, BMP, PTT, CBC #### [facility] [address] [place] [address] [place] Leukocyte clumps [Presence] in Urine by AutomatedOrdered By: Christen Oshea on 01-22-2024 Leukocyte clumps Auto Ql (U) Occasional [LPF] High None Seen [facility] Leukocyte esterase [Presence ] in Urine by Test stripOrdered By: Christen Oshea on 01-22-2024 Leukocyte esterase Test strip Ql (U) 1+ High Negative [facility] Comment on above: Order Comment: Name Collection Type:: Clean-Voided Midstream Performed By: #### P T, BMP, PTT, CBC #### [facility] [address] [place] [address] [place] Leukocytes [#/area] in Urine sediment by Automated countOrdered By: Christen Oshea on 01-22-2024 WBC Auto (Urine sed) [#/Area] 5-9 [HPF] High 0-4 [facility] Monocyte distribution width [Entitic volume] in Blood by AutomatedOrdered By: Christen Oshea on 01-22-2024 Monocyte distribution width Auto (Bld) [Entitic vol] 19.69 % 0.00-20.00 [facility] Nitrite Test strip Ql (U)Ord ered By: Christen Oshea on 01-22-2024 Nitrite Ql (U) Negative Negative [facility] Protein [Mass/volume] in Uri ne by Test stripOrdered By: Christen Oshea on 01-22-2024 Protein (U) [Mass/Vol] 50 mg/dL High Negative [facility] Comment on above: Order Comment: Name Collection Type:: Clean-Voided Midstream Performed By: #### P T, BMP, PTT, CBC #### [facility] [address] [place] [address] Specific gravity Test strip (U) [Rel density]Ordered By: Christen Oshea on 01-22-2024 Specific gravity (U) [Rel density] 1.010 1.001-1.030 [facility] Urine Cultureon 01-22-2024 Bacteria identified Cx Nom (U) Urine Culture Results >100,000 col/ml Mixed Bacterial Skin Contaminants 2 Days PERFORMED BY: [place] [address] PATHOLOGIST PACK PULLER CORAL BECKETT M.D. Normal [facility] Comment on above: Performed By: #### P T, BMP, PTT, CBC #### [address] Urine appearanceOrdered By: Christen Oshea on 01-22-2024 Appearance (U) Cloudy Critically abnormal Clear [facility] Comment on above: Order Comment: Name Collection Type:: Clean-Voided Midstream Performed By: #### P T, BMP, PTT, CBC #### [facility] [address] [place] [address] Urine culture routineOrdered By: Christen Oshea on 01-22-2024 Bacteria identified Cx Nom (U) [facility] Urobilinogen Test strip (U) [Mass/Vol]Ordered By: Christen Oshea on 01-22-2024 Urobilinogen (U) [Mass/Vol] Normal mg/dL Normal [facility] pH of Urine by Test stripOrd ered By: Christen Oshea on 01-22-2024 pH (U) 7.0 [pH] Normal 5.0-9.0 [facility] Comment on above: Order Comment: Name Collection Type:: Clean-Voided Midstream Performed By: #### P T, BMP, PTT, CBC #### [facility] [address] [place] [address] [facility] 2023 Home Health Records [id number] 5#[id number] Normal [facility] Home Health Records [id number] F2#[id number] Normal [facility] Basophils Auto (Bld) [#/Vol] on 12-06-2023 Basophils (Bld) [#/Vol] 0.0 10 3/uL 0.0-0.1 [facility] Basophils/100 WBC Auto (Bld) on 12-06-2023 Basophils/100 WBC (Bld) 0.3 % 0.2-2.0 [facility] Eosinophils/100 WBC Auto (Bl d)on 12-06-2023 Eosinophils/100 WBC (Bld) 2.9 % 0.9-7.0 [facility] Erythrocyte distribution wid th Auto (RBC) [Ratio]on 12-06-2023 Erythrocyte distribution width (RBC) [Ratio] 16.4 % High 11.0-15.0 [facility] Estimated glomerular filtrat ion rate (GFR) non- Americanon 12-06-2023 GFR/1.73 sq M.predicted among non-blacks MDRD (S/P/Bld) [Vol rate/Area] 20 mL/min/{1.73_m2} Low >=60 [facility] Globulin Calc (S) [Mass/Vol] on 12-06-2023 Globulin (S) [Mass/Vol] 4.3 g/dL [facility] Hematocrit Auto (Bld) [Volum e fraction]on 12-06-2023 Hematocrit (Bld) [Volume fraction] 31.8 % Low 36.0-48.0 [facility] Hemoglobin [Mass/volume] in Bloodon 12-06-2023 Hemoglobin (Bld) [Mass/Vol] 9.5 g/dL Low 12.0-16.0 [facility] Laboratory - Chemistry and C hemistry - challengeon 12-06-2023 Albumin [Mass/Vol] 2.8 g/dL Low 3.4-5.0 [facility] ALP [Catalytic activity/Vol] 55 U/L 46-116 [facility] ALT [Catalytic activity/Vol] 11 U/L Low 14-59 [facility] AST [Catalytic activity/Vol] 8 U/L Low 15-37 [facility] Bilirubin [Mass/Vol] 0.4 mg/dL 0.2-1.0 [facility] Calcium [Mass/Vol] 9.0 mg/dL 8.5-10.1 [facility] Chloride [Moles/Vol] 100 mmol/L 98-107 [facility] CO2 [Moles/Vol] 29.7 mmol/L 21.0-32.0 [facility] Cobalamin (Vitamin B12) [Mass/Vol] 380 pg/mL 232-1245 [facility] Comment on above: Performed at: [place] [id number] Director: Mohan Talbert PhD, Phone: [phone] Creatinine [Mass/Vol] 2.33 mg/dL High 0.55-1.02 [facility] Ferritin [Mass/Vol] 76.0 ng/mL 8.0-252.0 [facility] GFR/1.73 sq M.predicted MDRD (S/P/Bld) [Vol rate/Area] 24 mL/min/{1.73_m2} Low >=60 [facility] Glucose [Mass/Vol] 111 mg/dL High 74-106 [facility] LDH [Catalytic activity/Vol] 149 U/L 81-234 [facility] Potassium [Moles/Vol] 4.4 mmol/L 3.5-5.1 [facility] Protein [Mass/Vol] 7.1 g/dL 6.4-8.2 [facility] Sodium [Moles/Vol] 137 mmol/L 136-145 [facility] Urea nitrogen [Mass/Vol] 45.0 mg/dL High 7.0-18.0 [facility] Urea nitrogen/Creatinine [Mass ratio] 19.3 mg/mg [facility] Laboratory - Hematology and Cell countson 12-06-2023 Immature granulocytes/100 WBC (Bld) 0.3 % 0.0-0.5 [facility] Leukocytes [#/volume] correc suzi for nucleated erythrocytes in Blood by Automated counon 12-06-2023 WBC corrected for nucl RBC Auto (Bld) [#/Vol] 12.3 10 3/uL High 4.0-11.0 [facility] Lymphocytes Auto (Bld) [#/Vo l]on 12-06-2023 Lymphocytes (Bld) [#/Vol] 1.7 10 3/uL 1.2-3.8 [facility] Lymphocytes/100 WBC Auto (Bl d)on 12-06-2023 Lymphocytes/100 WBC (Bld) 13.7 % Low 20.5-60.0 [facility] MCH Auto (RBC) [Entitic mass ]on 12-06-2023 MCH (RBC) [Entitic mass] 31.0 pg 26.7-34.0 [facility] MCHC Auto (RBC) [Mass/Vol]on 12-06-2023 MCHC (RBC) [Mass/Vol] 29.9 g/dL 29.9-35.2 [facility] MCV Auto (RBC) [Entitic vol] on 12-06-2023 MCV (RBC) [Entitic vol] 103.9 fL High 81.0-99.0 [facility] Monocytes Auto (Bld) [#/Vol] on 12-06-2023 Monocytes (Bld) [#/Vol] 0.8 10 3/uL 0.3-0.8 [facility] Monocytes/100 WBC Auto (Bld) on 12-06-2023 Monocytes/100 WBC (Bld) 6.2 % 1.7-12.0 [facility] Neutrophils Auto (Bld) [#/Vo l]on 12-06-2023 Neutrophils (Bld) [#/Vol] 9.4 10 3/uL High 1.4-6.5 [facility] Neutrophils/100 WBC Auto (Bl d)on 12-06-2023 Neutrophils/100 WBC (Bld) 76.6 % High 43.0-75.0 [facility] No Panel Informationon 12-05 Eosinophils # (Auto) 0.4 10 3/uL 0.0-0.7 [facility] Folate 8.2 ng/mL >3.0 [facility] Comment on above: A serum folate oniel ntration of less than 3.1 ng/mL isconsidered to represent clinical deficiency.Performed at: - [facility] [address] [id number] Director: Mohan Talbert PhD, Phone: [phone] Immature Granulocyte # (Auto) 0.04 10 3/uL High 0.00-0.03 [facility] Platelet mean volume Auto (B ld) [Entitic vol]on 12-06-2023 Platelet mean volume (Bld) [Entitic vol] 11.5 fL 9.5-13.5 [facility] Platelets Auto (Bld) [#/Vol] on 12-06-2023 Platelets (Bld) [#/Vol] 209 10 3/uL 150-450 [facility] RBC Auto (Bld) [#/Vol]on RBC (Bld) [#/Vol] 3.06 10 6/uL Low 4.20-5.40 [facility] Reticulocytes/100 RBC Auto ( Bld)on 12-06-2023 Reticulocytes/100 RBC (Bld) 2.59 % 0.60-3.10 [facility] Serum or plasma albumin/glob ulin mass ratioon 12-06-2023 Albumin/Globulin [Mass ratio] 0.7 {ratio} [facility] Serum or plasma anion gap de terminationon 12-06-2023 Anion gap [Moles/Vol] 11.7 mmol/L [facility] A1C with Estimated Average G luon 12-02-2023 Glucose [Mass/Vol] 166 mg/dL Normal [facility] Comment on above: Result Comment: PERF ORMED BY: [place] [address] PATHOLOGIST PACK PULLER CORAL BECKETT M.D. Performed By: #### P T, BMP, PTT, CBC #### [address] Albumin Levelon 12-02-2023 Albumin [Mass/Vol] 3.7 g/dL Normal 3.5-5.7 [facility] Comment on above: Performed By: #### P T, BMP, PTT, CBC #### [facility] [address] [place] [id number] [place] Albumin [Mass/volume] in Ser um or Plasma by Bromocresol green (BCG) dye binding methoOrdered By: Da Lozano on 12-02-2023 Albumin BCG dye [Mass/Vol] 3.7 g/dL 3.5-5.7 [facility] Cotinine [Mass/volume] in Se rum or PlasmaOrdered By: Da Lozano on 12-02-2023 Cotinine [Mass/Vol] <1.0 ng/mL . [facility] Comment on above: This test was develo ped and its performance characteristicsdetermined by [employer]. It has not been cleared orapproved by the Food and Drug Administration.Cotinine levels greater than 20.0 are consistent with theuse of tobacco or tobacco cessation products.Performed at: [facility] [employer] [id number] Director: Navneet Carcamo MD, Phone: [phone] Glucose mean value [Mass/vol ume] in Blood Estimated from glycated hemoglobinOrdered By: Da Lozano on 12-02-2023 Average glucose Estimated from glycated hemoglobin (Bld) [Mass/Vol] 166 mg/dL [facility] Hemoglobin A1c percentageOrd ered By: Da Lozano on 12-02-2023 HbA1c (Bld) [Mass fraction] 7.4 % High 4.3-5.6 [facility] Comment on above: Increased risk for d iabetes: 5.7 - 6.4diabetes: >6.4glycemic control for adults with diabetes: <7.0 Result Comment: Incr eased risk for diabetes: 5.7 - 6.4 diabetes: >6.4 glycemic control for adults with diabetes: <7.0 Performed By: #### P T, BMP, PTT, CBC #### [facility] [address] [place] [address] [place] Hemoglobin [Mass/volume] in BloodOrdered By: Da Lozano on 12-02-2023 Hemoglobin (Bld) [Mass/Vol] 10.3 g/dL Low 11.8-15.4 [facility] Comment on above: Result Comment: PERF ORMED BY: [address] [place] [id number] PATHOLOGIST PACK PULLER CORAL BECKETT M.D. Performed By: #### P T, BMP, PTT, CBC #### [place] [id number] [facility] MRSA Cultureon 12-02-2023 MRSA Culture No MRSA Isolated 2 Days * This is a corrected result. * A prior result that was reported as final has been changed. Added 2 day read result to report. PERFORMED BY: [address] [place] [id number] PATHOLOGIST PACK PULLER CORAL BECKETT M.D. Normal [facility] Comment on above: Performed By: #### P T, BMP, PTT, CBC #### [place] [id number] [facility] Nicotine [Mass/volume] in Se rum or PlasmaOrdered By: Da Lozano on 12-02-2023 Nicotine [Mass/Vol] <1.0 ng/mL . [facility] Comment on above: This test was develo ped and its performance characteristicsdetermined by [facility]. It has not been cleared orapproved by the Food and Drug Administration.Nicotine levels greater than 2.0 are consistent with theuse of tobacco or tobacco cessation products. Nicotine/Cotinine Bloodon Cotinine, Blood <1.0 Normal . [facility] Comment on above: Result Comment: This test was developed and its performance characteristics determined by [facility]. It has not been cleared or approved by the Food and Drug Administration. Cotinine levels greater than 20.0 are consistent with the use of tobacco or tobacco cessation products. Performed at: [address] [id number] Pharmacy Intern: Navneet Carcamo MD, Phone: [phone] PERFORMED BY: [address] [place] [address] PATHOLOGIST PACK PULLER CORAL BECKETT M.D. Performed By: #### P T, BMP, PTT, CBC #### [address] Nicotine, Blood <1.0 Normal . [facility] Comment on above: Result Comment: This test was developed and its performance characteristics determined by [employer]. It has not been cleared or approved by the Food and Drug Administration. Nicotine levels greater than 2.0 are consistent with the use of tobacco or tobacco cessation products. Performed By: #### P T, BMP, PTT, CBC #### [address] Vitamin D 25 Hydroxy Totalon 12-02-2023 Vitamin D 25 Hydroxy Total 91.9 ng/mL Normal 30-100 [facility] Comment on above: Result Comment: ROBERTO MIN D STATUS 25(OH)VITAMIN D RANGE (ng/mL) Deficient <20 Insufficient 20 to <30 Sufficient 30 to 100 Reference: Abhijeet Lao, Stacey CHATMAN, et al. Evaluation,treatment, and prevention of vitamin D deficiency; an Endocrine Society clinical practice guideline. JCEM. 2010; 96(7):1911-30. PERFORMED BY: [place] [address] PATHOLOGIST PACK PULLER CORAL BECKETT M.D. Performed By: #### P T, BMP, PTT, CBC #### [address] Vitamin D+Metabolites [Mass/ volume] in Serum or PlasmaOrdered By: Da Lozano on 12-02-2023 Vitamin D+Metabolites [Mass/Vol] 91.9 ng/mL 30-100 [facility] Comment on above: VITAMIN D STATUS 25( [place])VITAMIN D RANGE (ng/mL) Deficient <20 Insufficient 20 to <30Sufficient 30 to 100Reference: Abhijeet Lao, Stacey CHATMAN, et al. Evaluation,treatment, and prevention of vitamin D deficiency; an Endocrine Society clinical practice guideline. JCEM. 2010; 96(7):1911-30. Wound methicillin resistant Staphylococcus aureus (MRSA) cultureOrdered By: Da Lozano on 12-02-2023 MRSA isol Org specific cx Ql (Unsp spec) No MRSA Isolated 2 Days [facility] Glucose mean value [Mass/vol ume] in Blood Estimated from glycated hemoglobinon 11-22-2023 Average glucose Estimated from glycated hemoglobin (Bld) [Mass/Vol] 160 mg/dL [facility] Laboratory - Hematology and Cell countson 11-22-2023 HbA1c (Bld) [Mass fraction] 7.2 % High 4.5-6.2 [facility] Comment on above: ADA RECOMMENDED LIMI T 4.0 - 6.0ADA THERAPEUTIC TARGET < 7.0ACTION SUGGESTED> 7.0 Laboratory - Chemistry and C hemistry - challengeon 10-23-2023 Bilirubin Ql (U) Negative [facility] Glucose (U) [Mass/Vol] Negative [facility] Ketones Ql (U) Negative [facility] pH (U) 5 [pH] [facility] Specific gravity (U) [Rel density] 1.000 [facility] Urobilinogen (U) [Mass/Vol] 0.2 mg/dL [facility] Laboratory - Specimen inform ationon 10-23-2023 Appearance (U) Cloudy [facility] Color (U) Yellow [facility] Laboratory - Urinalysison Leukocyte esterase Test strip Ql (U) +++ [facility] Nitrite Ql (U) Negative [facility] Protein Ql (U) Negative [facility] No Panel Informationon 10-22 Urine Occult Blood Negative [facility] Home Health Recordson 2023 Home Health Records [id number] 3C#1.00TIFF Normal [facility] NM Heart Perfusion W stress and W radionuclide [place] 10-14-2023 Abnormal [facility] cardiac perfusion stress test. No myocardial ischemia by perfusion imaging. No myocardial infarction by perfusion imaging. Abnormal left ventricular systolic function with mild global hypokinesis. Left ventricular ejection fraction 48 %. No previous studies are available for comparison. Signed by: Charlotte Logan 10/14/2023 4:27 PM Dictation workstation: [id number] [facility] MMODAL Interpreted By: Charlotte Logan and Giannuzzi Michael STUDY: MYOCARDIAL PERFUSION STRESS TEST WITH LEXISCAN Performing facility: [facility], [address] [place] [address], [address], [place] [address] [facility] Provider: Joey Morales MD, [facility] PCP: Dr. Marsha Best Supervising provider: Joey Cobb DO, [facility] INDICATION: CAD; CABG ICM SOB; HISTORY: Gender: F; Age: 78 y/o ; Height: HT 149.9 cm cm; Weight: WT 74.844 kg kg. High Cholesterol; CAD; Diabetes; Previous IL; HTN; SOB; Quit smoking 27 years ago. Cardiac catheterization on 2016. PTCA on 2016. CABG on 2016. COMPARISON: No comparison. ACCESSION NUMBER(S): [id number] ORDERING CLINICIAN: TOM MORALES TECHNIQUE: ONE DAY protocol. Stress injection: Date:10-14-23, [...] evidence of attenuation artifact. [facility] MMODAL Charlotte Logan MD - 10/14/2023 Interpreted By: Charlotte Logan and Giannuzzi Michael STUDY: MYOCARDIAL PERFUSION STRESS TEST WITH LEXISCAN Performing facility: [facility], [address] [place] [address], [address], [address] Provider: Joey Morales MD, [facility] PCP: Dr. Marsha Best Supervising provider: Joey Cobb DO, [facility] INDICATION: CAD; CABG ICM SOB; HISTORY: Gender: F; Age: 78 y/o ; Height: HT 149.9 cm cm; Weight: WT 74.844 kg kg. High Cholesterol; CAD; Diabetes; Previous IL; HTN; SOB; Quit smoking 27 years ago. Cardiac catheterization on 2017. PTCA on 2017. CABG on 2017. COMPARISON: No comparison. ACCESSION NUMBER(S): [id number] ORDERING CLINICIAN: TOM MORALES TECHNIQUE: ONE DAY protocol. Stress injection: Date:10-14-23, [...] are available for comparison. Signed by: Charlotte Logan 10/14/2023 4:27 PM Dictation workstation: [id number] [facility] Work Phone: Radiology Study observation (narrative) [facility] Work Phone: NM Heart Perfusion W stress and W radionuclide IVOrdered By: Charlotte Logan on 10-14-2023 [facility] Work Phone: NUCLEAR STRESS TESTon 2023 NUCLEAR STRESS TEST Interpreted By: Charlotte Logan and Omar Hernandez STUDY: MYOCARDIAL PERFUSION STRESS TEST WITH LEXISCAN Performing facility: [facility], [address] [place] [address], [address] Provider: Joey Morales MD, [facility] PCP: Dr. Marsha Best Supervising provider: Joey Cobb DO, [facility] INDICATION: CAD; CABG ICM SOB; HISTORY: Gender: F; Age: 78 y/o ; Height: HT 149.9 cm cm; Weight: WT 74.844 kg kg. High Cholesterol; CAD; Diabetes; Previous IL; HTN; SOB; Quit smoking 27 years ago. Cardiac catheterization on 2016. PTCA on 2017. CABG on 2017. COMPARISON: No comparison. ACCESSION NUMBER(S): [id number] ORDERING CLINICIAN: TOM MORALES TECHNIQUE: ONE DAY protocol. Stress injection: Date:10-14-23, [...] studies are available for comparison. Signed by: Charoltte Logan 10/14/2023 4:27 PM Dictation workstation: [id number] [facility] Home Health Recordson 2023 Home Health Records [id number] 6F#1.00TIFF Normal [facility] Retail - Clinical Noteon Retail - Clinical Note [id number] 52#1.00TIFF Normal [facility] Home Health Recordson 2023 Home Health Records [id number] 42#1.00TIFF [facility] Home Health Recordson 2023 Home Health Records [id number] 2A#1.00TIFF [facility] Home Health Records [id number] BC#1.00TIFF [facility] Home Health Recordson 2023 Home Health Records [id number] DA#1.00TIFF Normal [facility] Home Health Recordson 2023 Home Health Records [id number] 8E#1.00TIFF Normal [facility] ECG 12-Leadon 09-09-2023 ECG 12-Lead [id number] 37#1.00TIFF Normal [facility] Home Health Recordson 2023 Home Health Records [id number] A0#1.00TIFF [facility] ED Note-Physicianon 09-01-19 ED Note-Physician [id number] 20#1.00TIFF [facility] RAD - MISCon 09-01-2023 RAD - MISC [id number] 4E#1.00TIFF [facility] Ambulatory Visit Summaryon 0 08-21-2023 Ambulatory Visit Summary LEXI TATUM :1945 Visit Date:08/20/2023 Ambulatory Visit Instructions Your Diagnosis Annual visit for general adult medical examination without abnormal findings Encounter for screening for other disorder Screening declined by patient Pure hypercholesterolemi a Diabetes Class 3 severe obesity with serious comorbidity in adult Adult BMI 37.0-37.9 kg/sq m Your Care Team Attending Physician - Maxine Sanchez Primary Care Physician - Maxine Sanchez This Is Your Medications List Misc Prescription ([facility] Prescription) acetaminophen (Tylenol) allopurinol (allopurinol 300 [...] EDT With: Maxine Sanchez Where: [facility] Family Medicine [place] Normal [facility] Family Medicine Office/Clini c Noteon 08-21-2023 [...] clutter to prevent tripping and/or falling. [place] Advance Directives reviewed, patient has on file with [facility]. Patient denies any problems with ADL?s [...] life. Screening declined by patient. 4. Pure hypercholesterolemi a (E78.00: Pure hypercholesterolemi a, unspecified) Reviewed healthy lifestyle with low fat [...] monitor f (more content not included)... Normal [facility] Comment on above: Result Comment: Elec [...] Assessment/Plan 1. Type 1 diabetes mellitus with hypercholesterolemi a (E10.69: Type 1 diabetes mellitus with other [...] EST, Weight Dosing HgbA1c Lab Specimen Collect [id number] 3. Long-term insulin use (Z79.4: retirement (current) use of insulin) insulins changed to humalog due to insurance 4. Diabetic peripheral neuropathy (E11.42: Type 2 diabetes mellitus with diabetic polyneuropathy) see above Pure hypercholesterolemi a, unspecified (E78.00: Pure hypercholesterolemi a, unspecified) cholesterol well controlled Follow-up No qualifying data available Problem List/Past Medical History Ongoing Chronic kidney disease, stage 3 unspecified Class 3 severe obesity with serious comorbidity in adult Diabetic peripheral neuropathy Flank pain Gout Long-term insulin use Osteoarthritis Pure hypercholesterolemi a Type 1 diabetes mellitus with hypercholesterolemi a Urinary incontinence Vitamin D deficiency Wellness examination [...] virus vaccine, inactivated 07/03/2022 Recorded SARS-CoV-2 (COVID-19) mRNAMUL.ORD![id number] 06/17/2022 Re (more content not included)... Normal [facility] Comment on above: Result Comment: Elec tronically Signed By: Maxine Sanchez\.br\Date and Time Signed: 08/21/23 08:02 EST Formson 08-21-2023 Forms [id number] 0F#1.00TIFF Normal [facility] [id number] 08-21-2023 HbA1c (Bld) [Mass fraction] 8.2 % High <=5.9 [facility] Comment on above: Performed By: #### 7 [id number] #### [facility] Laboratory [address] [place] [address] Patient Educationon 08-21-19 24 Patient Education Caregiving [...] night-lights. ? Place frequently used items in kyus-va-nvyuy places. Lower the shelves around your home [...] the way. ? Do not use floor icelandic or wax that makes floors slippery. If [...] include working with a physical therapist or corporate sales trainer to improve your strength, balance, and endurance. Where to find more information ? Centers for Disease Control and Prevention, STEADI: www.cdc.gov ? [employer] Mark on Aging: www.jasmina.nih.gov Contact a health care [...] health ca (more content not included)... Normal [facility] Ambulatory Visit Summaryon 0 08-20-2023 Ambulatory [...] EDT With: Maxine Sanchez Where: [facility] Family Medicine [facility] Ambulatory Visit Summary LEXI TATUM :1945 Visit Date:08/20/2023 Ambulatory Visit Instructions Your Care Team Attending Physician - Maxine Sanchez Primary Care Physician - Maxine Sanchez This Is Your Medications List Misc Prescription ([facility] Prescription) acetaminophen (Tylenol) allopurinol (allopurinol 300 [...] diabetes CKD (chronic kidney disease) Gout Pure hypercholesterolemi a Vitamin D deficiency Urinary incontinence Unchanged potassium [...] pain Gout Long-term insulin use Osteoarthritis Pure hypercholesterolemi a Type 1 diabetes mellitus with hypercholesterolemi a Urinary incontinence Vitamin D deficiency Wellness examination Historical - Any problem that you are no longer receiving treatment for. CKD (chronic kidney disease) Patient Survey You may receive a survey via text or e-mail asking about your office visit. Please share your experience with us by completing your survey. We appreciate your feedback and thank you for choosing us for your care. Normal [facility] Pre-Visit Planningon 023 Pre-Visit Planning -- From: Bibiana Walter To: Maxine Sanchez; Sent: 05/20/2023 08:13:06 EST Subject: Pre-Visit Planning Due Date/Time: 05/20/2023 08:13:00 EST Caller Name: LEXI TATUM; Caller Number: Giovanni , M [facility] Maxine. During a pre-visit planning chart review, I noted the following documentation in the medical record: Current Problem List: CKD (Chronic kidney disease, unspecified). GFR: =39 on 02/10/2023 and =35 on 01/30/2022. 02/11/2023 Office Visit Note: [facility] Staff- Any previous diagnosis: acute systolic heart failure, CKD stage 4, Diabetic peripheral neuropathy, Vitamin D deficiency, Type 1 diabetes, gout, osteoarthritis, pure hypercholesterolemi a. Based on your medical judgment, can you [...] please feel free to contact me at [id number] [phone]. Thank you! Bibiana Walter LPN -- From: Maxine Sanchez To: Bibiana Walter; Sent: 05/28/2023 14:06:51 EST Subject: RE: Pre-Visit Planning Caller Name: LEXI TATUM; Caller Number: Giovanni , M chronic kidney disease stage 3, unspecified Normal [address] [place] [address] Pre-Visit Planning -- From: Bibiana Walter To: Maxine Sanchez; Sent: 05/20/2023 08:18:07 EST Subject: Pre-Visit Planning Due Date/Time: 05/20/2023 08:18:00 EST Caller Name: LEXI TATUM; Caller Number: Giovanni , M Fermín Goodman. During a pre-visit planning chart review, I noted the following documentation in the medical record indicates that this patient had BMI of 39.36 on 03/05/2023 and a diagnosis of Type 1 diabetes mellitus with hypercholesterolemi a noted on Current Problem List. If BMI [...] or . Thank you! Bibiana Walter LPN -- From: Maxine Sanchez To: Bibiana Walter; Sent: 05/28/2023 13:26:36 EST Subject: RE: Pre-Visit Planning Caller Name: RC LEXI; Caller Number: , M class 3 obesity with Type 1 diabetes and hypercholesterolemi a Normal [address] [place] [address] Ambulatory Visit Summaryon 1 07-21-2022 Ambulatory Visit Summary LEXI TATUM :1945 Visit Date:05/21/2023 Ambulatory Visit Instructions Your Diagnosis Type 1 diabetes mellitus with hypercholesterolemi a Long-term insulin use Former smoker BMI 40.0-44.9, [...] 11:00 AM EST With: Maxine Sanchez Where: [facility] Medicine Office/Clini c Noteon 05-21-2023 Family Medicine [...] Assessment/Plan 1. Type 1 diabetes mellitus with hypercholesterolemi a (E10.69: Type 1 diabetes mellitus with other [...] 3 months. Ordered: HgbA1c Lab Specimen Collect [id number] 2. Long-term insulin use (Z79.4: retirement (current) use of insulin) see above Ordered: HgbA1c Lab Specimen Collect [id number] 3. Former smoker (Z87.891: Personal history of [...] pain Gout Long-term insulin use Osteoarthritis Pure hypercholesterolemi a Type 1 diabetes mellitus with hypercholesterolemi a Urinary incontinence Vitamin D deficiency Wellness examination [...] virus vaccine, inactivated 07/03/2022 Recorded SARS-CoV-2 (COVID-19) mRNAMUL.ORD![id number] 06/17/2022 Recorded 2023-02-10: TPV75 SARS-CoV-2 (COVID-19) mRNA [...] Recorded pneumococcal 13-valent vaccine 10/30/2016 Recorded Normal [facility] Comment on above: Result Comment: Elec tronically Signed By: Maxine Sanchez\Date and Time Signed: 05/21/23 13:14 EST [id number] 05-21-2023 HbA1c (Bld) [Mass fraction] 8.7 % High <=5.9 [facility] Comment on above: Performed By: #### 7 [id number] #### [facility] Laboratory [address] [place] [address] Ambulatory Visit Summaryon 0 03-05-2023 Ambulatory Visit [...] Friday 1:00 PM EDT With: Where: [facility] Normal [address] [place] [address]- \.br\ Medications\.br\ What How Much When Why [...] Vitamin D deficiency\.br\ Wellness examination\.br\ \.br\ [facility] Family Medicine Office/Clini c Noteon 03-05-2023 Family Medicine Office/Clinic Note HPI Staff Lexi os a 77 year old female presenting for [...] continue BS log. may consider referral to lpn private duty at that visit. 2. Flank pain (R10.9: [...] peripheral neuropathy Flank pain Gout Osteoarthritis Pure hypercholesterolemi a Type 1 diabetes Urinary incontinence Vitamin D [...] virus vaccine, inactivated 07/03/2022 Recorded SARS-CoV-2 (COVID-19) mRNAMUL.ORD![id number] 06/17/2022 Recorded 2023-02-10: TPV75 SARS-CoV-2 (COVID-19) mRNA [...] Recorded pneumococcal 13-valent vaccine 10/30/2016 Recorded Normal [facility] Comment on above: Result Comment: Elec tronically Signed By: Shraddha GAMBLE, Maxine Baez\.br\Date and Time Signed: 03/05/23 14:10 EDT CHEMISTRYOrdered By: SYSTEM SYSTEM on 02-10-2023 25-hydroxyvitamin [...] 23 mg/dL High 5 - 21 mg/dL [facility] Remisol Urea nitrogen/Creatinine [Mass ratio] 16 mg/mg Normal 10 - 20 [facility] Remisol CHEMISTRYOrdered By: Natalio grover on 02-10-2023 HbA1c (Bld) [Mass fraction] 10.9 % High <=5.9% [facility] Chem[facility]SS HEMATOLOGYOrdered By: SYSTEM SYSTEM on 02-10-2023 Basophils/100 WBC (Bld) 0.4 % Normal 0.0 - 2.0 % [facility] HemeAutoSS Basophils/Leukocyte s Auto (Bld) [Pure # fraction] 0.0 E9/L Normal 0.0 - 0.2 E9/L [facility] HemeAutoSS Eosinophils/100 WBC (Bld) 2.6 % Normal 0.0 - 8.0 % [facility] HemeAutoSS Eosinophils/Leukocy joanna Auto (Bld) [Pure # fraction] 0.2 E9/L Normal 0.0 - 0.5 E9/L [facility] HemeAutoSS Lymphocytes/100 WBC (Bld) 23.0 % Normal 14.0 - 50.0 % [facility] HemeAutoSS Lymphocytes/Leukocy joanna Auto (Bld) [Pure # fraction] 1.8 E9/L Normal 1.0 - 4.0 E9/L [facility] HemeAutoSS Monocytes/100 WBC (Bld) 6.6 % Normal 4.0 - 14.0 % [facility] HemeAutoSS Monocytes/Leukocyte s Auto (Bld) [Pure # fraction] 0.5 E9/L Normal 0.2 - 1.0 E9/L [facility] HemeAutoSS Neutrophils/100 WBC (Bld) 67.4 % Normal 36.0 - 75.0 % [facility] HemeAutoSS Neutrophils/Leukocy joanna Auto (Bld) [Pure # fraction] 5.1 E9/L [...] 7.6 E9/L Normal 4.0 - 11.0 E9/L [facility] HemeAutoSS Office Visit (Cardiology)on 07-25-2022 Follow-up visit Diagnoses/Problems Assessed S/P CABG x 3 (V45.81) (Z95.1) Ischemic cardiomyopathy (414.8) (I25.5) Hyperlipidemia (272.4) (E78.5) HTN (hypertension) (401.9) (I10) History of angioplasty (V45.89) (Z98.62) History of Dyslipidemia (272.4) (E78.5) CAD, multiple vessel (414.00) (I25.10) History of IL (myocardial infarction) (412) (I25.2) Statin intolerance (995.27) [...] - Retrospective Authorization; Done: 25Jul2022 History of IL (myocardial infarction), HTN (hypertension) Renew: Carvedilol 25 [...] History of angioplasty (V45.89) (Z98.62) History of IL (myocardial infarction) (412) (I25.2) HTN (hypertension) (401.9) [...] breath. Gastrointe (more content not included)... Normal [employer] Tobacco Screening.on 023 Adult depression screening assessment No [facility] 250 DO Work Phone: Fall risk assessment a) No falls within the last year [facility] 250 DO Work Phone: Tobacco use status CPHS b) No [facility] 250 DO Work Phone: CBC AUTO DIFFon 01-30-2022 BASO # 0.0 103/ul Normal 0.0-0.[address] [facility] Comment on above: Performed By: #### C BC #### [facility] [address] [place] [address] Dr. Yarely Roe Basophils/100 WBC (Bld) 0.4 % Normal 0.2-2.[address] [facility] Comment on above: Performed By: #### C BC #### [facility] [address] [place] [address] Dr. Yarely Roe EO # 0.2 103/ul Normal 0.0-0.7 [facility] Comment on above: Performed By: #### C BC #### [facility] [address] [place] [address] Dr. Yarely Roe Eosinophils/100 WBC (Bld) 2.3 % Normal 0.9-7.[address] [facility] Comment on above: Performed By: #### C BC #### [facility] [address] [place] [address] Dr. Yarely Roe Erythrocyte distribution width (RBC) [Ratio] 14.8 % Normal 11.0-15.[address] [facility] Comment on above: Performed By: #### C BC #### [facility] [address] [place] [address] Dr. Yarely Roe Hematocrit (Bld) [Volume fraction] 42.0 % Normal 36.0-48.[address] [facility] Comment on above: Performed By: #### C BC #### [facility] [address] [place] [address] Dr. Yarely Roe Hemoglobin (Bld) [Mass/Vol] 13.7 g/dL Normal 12.0-16.0 [facility] Comment on above: Performed By: #### C BC #### [facility] [address] [place] [address] Dr. Yarely Roe IG # 0.03 10e3/ul Normal 0.00-0.[address] [facility] Comment on above: Performed By: #### C BC #### [facility] [address] [place] [address] Dr. Yarely Roe IG % 0.4 % Normal 0.0-0.[address] [facility] Comment on above: Performed By: #### C BC #### [facility] [address] [place] [address] Dr. Yarely Roe LYMPH # 1.7 103/ul Normal 1.2-3.[address] [facility] Comment on above: Performed By: #### C BC #### [facility] [address] [place] [address] Dr. Yarely Roe Lymphocytes/100 WBC (Bld) 20.7 % Normal 20.5-60.[address] [facility] Comment on above: Performed By: #### C BC #### [facility] [address] [place] [address] Dr. Yarely Roe MANUAL DIFF REQ NO Normal [facility] Comment on above: Performed By: #### C BC #### [facility] [address] [place] [address] Dr. Yarely Roe MCH (RBC) [Entitic mass] 31.9 pg Normal 26.7-34.[address] [facility] Comment on above: Performed By: #### C BC #### [facility] [address] [place] [address] Dr. Yarely Roe MCHC (RBC) [Mass/Vol] 32.6 g/dL Normal 29.9-35.[address] [facility] Comment on above: Performed By: #### C BC #### [facility] [address] [place] [address] Dr. Yarely Roe MCV (RBC) [Entitic vol] 97.7 fL Normal 81.0-99.[address] [facility] Comment on above: Performed By: #### C BC #### [facility] [address] [place] [address] Dr. Yarely Roe MONO # 0.5 103/ul Normal 0.3-0.[address] [facility] Comment on above: Performed By: #### C BC #### [facility] [address] [place] [address] Dr. Yarely Roe Monocytes/100 WBC (Bld) 5.9 % Normal 1.7-12.[address] [facility] Comment on above: Performed By: #### C BC #### [facility] [address] [place] [address] Dr. Yarely Roe NEUT # 5.7 103/ul Normal 1.4-6.[address] [facility] Comment on above: Performed By: #### C BC #### [facility] [address] [place] [address] Dr. Yarely Roe Neutrophils/100 WBC (Bld) 70.3 % Normal 43.0-75.[address] [facility] Comment on above: Performed By: #### C BC #### [facility] [address] [place] [address] Dr. Yarely Roe Platelet mean volume (Bld) [Entitic vol] 11.0 fL Normal 9.5-13.[address] [facility] Comment on above: Performed By: #### C BC #### [facility] [address] [place] [address] Dr. Yarely Roe PLT 196 103/ul Normal 150-450 [facility] Comment on above: Performed By: #### C BC #### [facility] [address] [place] [address] Dr. Yarely Roe RBC 4.30 106/ul Normal 4.20-5.[address] [facility] Comment on above: Performed By: #### C BC #### [facility] [address] [place] [address] Dr. Yarely Roe WBC 8.1 103/ul Normal 4.0-11.0 [facility] Comment on above: Performed By: #### C BC #### [facility] [address] [place] [address] Dr. Yarely Roe GLYCOHEMOGLOBIN A1Con 2021 ADA RECOMMENDATION SEE BELOW Normal [facility] Comment on above: Result Comment: ADA RECOMMENDED LIMIT 4.0 - 6.0 ADA THERAPEUTIC TARGET < 7.0 ACTION SUGGESTED > 7.0 Performed By: #### A 1C #### [facility] [address] [place] [address] Dr. Yarely Roe Glucose [Mass/Vol] 223 mg/dL Normal [facility] Comment on above: Performed By: #### A 1C #### [facility] [address] [place] [address] Dr. Yarely Roe HbA1c (Bld) [Mass fraction] 9.4 % Critically high 4.5-6.[address] [facility] Comment on above: Performed By: #### A 1C #### [facility] [address] [place] [address] Dr. Yarely Roe PROF CHEM 8 (BAS METB)on Anion gap [Moles/Vol] 13.4 mmol/L Normal [facility] Comment on above: Performed By: #### B MP #### [facility] [address] [place] [address] Dr. Yarely Roe Calcium [Mass/Vol] 9.5 mg/dL Normal 8.5-10.[address] [facility] Comment on above: Performed By: #### B MP #### [facility] [address] [place] [address] Dr. Yarely Roe Chloride [Moles/Vol] 101 mmol/L Normal 98-107 [facility] Comment on above: Performed By: #### B MP #### [facility] [address] [place] [address] Dr. Yarely Roe CO2 [Moles/Vol] 28.6 mmol/L Normal 21.0-32.[address] [facility] Comment on above: Performed By: #### B MP #### [facility] [address] [place] [address] Dr. Yarely Roe Creatinine [Mass/Vol] 1.46 mg/dL Critically high 0.55-1.02 [facility] Comment on above: Performed By: #### B MP #### [facility] [address] [place] [address] Dr. Yarely Roe EGFR-AF BAHRAINI 42 mL/min/1.73m2 Critically low >=60 [facility] Comment on above: Performed By: #### B MP #### [facility] [address] [place] [address] Dr. Yarely Roe EGFR-NON AF BAHRAINI 35 mL/min/1.73m2 Critically low >=[address] [facility] Comment on above: Performed By: #### B MP #### [facility] [address] [address] [address] Yarely Roe Glucose [Mass/Vol] 288 mg/dL Critically high 74-106 T [facility] Comment on above: Performed By: #### B MP #### [facility] [address] [address] [address] Yarely Roe Potassium [Moles/Vol] 4.0 mmol/L Normal 3.5-5.[address] [facility] Comment on above: Performed By: #### B MP #### [facility] [address] [address] [address] Yarely Roe Sodium [Moles/Vol] 139 mmol/L Normal 136-[address] [facility] Comment on above: Performed By: #### B MP #### [facility] [address] [address] [address] Yarely Roe Urea nitrogen [Mass/Vol] 27.0 mg/dL Critically high 7.0-18.[address] [facility] Comment on above: Performed By: #### B MP #### [facility] [address] [address] [address] Yarely Roe Urea nitrogen/Creatinine [Mass ratio] 18.5 mg/mg Normal [facility] Comment on above: Performed By: #### B MP #### [facility] [address] [address] [address] Yarely Roe PROF CHEM 8 (BAS METB)on Anion gap [Moles/Vol] 11.9 mmol/L Normal [facility] Comment on above: Performed By: #### B MP #### [facility] [address] [address] [address] Yarely Roe Calcium [Mass/Vol] 9.1 mg/dL Normal 8.5-10.[address] [facility] Comment on above: Performed By: #### B MP #### [facility] [address] [address] [address] Yarely Roe Chloride [Moles/Vol] 100 mmol/L Normal 98-[address] [facility] Comment on above: Performed By: #### B MP #### [facility] [address] [address] [address] Yarely Roe CO2 [Moles/Vol] 30.8 mmol/L Normal 21.0-32.[address] [facility] Comment on above: Performed By: #### B MP #### [facility] [address] [address] [address] Yarely Roe Creatinine [Mass/Vol] 1.27 mg/dL Critically high 0.55-1.[address] [facility] Comment on above: Performed By: #### B MP #### [facility] [address] [place] [address] Dr. Yarely Roe EGFR-AF BAHRAINI 50 mL/min/1.73m2 Critically low >=[address] [facility] Comment on above: Performed By: #### B MP #### [facility] [address] [address] [address] Yarely Roe EGFR-NON AF BAHRAINI 41 mL/min/1.73m2 Critically low >=[address] [facility] Comment on above: Performed By: #### B MP #### [facility] [address] [place] [address] Dr. Yarely Roe Glucose [Mass/Vol] 166 mg/dL Critically high 74-106 T [facility] Comment on above: Performed By: #### B MP #### [facility] [address] [address] [address] Yarely Roe Potassium [Moles/Vol] 3.7 mmol/L Normal 3.5-5.[address] [facility] Comment on above: Performed By: #### B MP #### [facility] [address] [address] [address] Yarely Roe Sodium [Moles/Vol] 139 mmol/L Normal 136-[address] [facility] Comment on above: Performed By: #### B MP #### [facility] [address] [address] [address] Yarely Roe Urea nitrogen [Mass/Vol] 20.0 mg/dL Critically high 7.0-18.[address] [facility] Comment on above: Performed By: #### B MP #### [facility] [address] [place], [place] [address] Dr. Yarely Roe Urea nitrogen/Creatinine [Mass ratio] 15.7 mg/mg Normal [facility] Comment on above: Performed By: #### B MP #### [facility] [address] [place], [place] [address] Dr. Yarely Roe Office Visit (Cardiology)on 11-02-2021 Follow-up visit Diagnoses/Problems Assessed Hyperlipidemia (272.4) (E78.5) Ischemic cardiomyopathy (414.8) (I25.5) HTN (hypertension) (401.9) (I10) History of IL (myocardial infarction) (412) (I25.2) CAD, multiple vessel [...] Metabolic Panel; Status:Active - Retrospective Authorization; Requested for:[id number]; CAD, multiple vessel, Hyperlipidemia Renew: Rosuvastatin Calcium [...] Instructions By signing my name below, I, Christennicky Pastrana LPN ,Tristanibben, attest that this documentation has been prepared under the direction and in the presence of Dr. Tom Morales MD. All medical record entries made by [...] 2:24:53 PM (more content not included)... Normal [employer] Tobacco Screening.on 022 Adult depression screening assessment No [facility] [employer] 250 DO Work Phone: Fall risk assessment a) No falls within the last year [facility] [employer] 250 DO Work Phone: Tobacco use status CPHS b) No [facility] [employer] 250 DO Work Phone: XR LSPINE MIN [...] Vascular calcifications. Right pelvic vascular stent. IMPRESSION: [id number] degenerative changes with minimal anterolisthesis of L4 and L5 Electronically authenticated by: ALISSA RAMIREZ Date: 2021-10-16 07:05 Normal [facility] CBC AUTO DIFFon 10-15-2021 BASO # 0.0 103/ul Normal 0.0-0.[address] [facility] Comment on above: Performed By: #### C BC #### [facility] [address] [place] [address] Dr. Yarely Roe Basophils/100 WBC (Bld) 0.3 % Normal 0.2-2.[address] [facility] Comment on above: Performed By: #### C BC #### [facility] [address] [place] [address] Dr. Yarely Roe EO # 0.3 103/ul Normal 0.0-0.[address] [facility] Comment on above: Performed By: #### C BC #### [facility] [address] [place] [address] Dr. Yarely Roe Eosinophils/100 WBC (Bld) 3.4 % Normal 0.9-7.[address] [facility] Comment on above: Performed By: #### C BC #### [facility] [address] [place] [address] Dr. Yarely Roe Erythrocyte distribution width (RBC) [Ratio] 15.1 % Critically high 11.0-15.[address] [facility] Comment on above: Performed By: #### C BC #### [facility] [address] [place] [address] Dr. Yarely Roe Hematocrit (Bld) [Volume fraction] 42.1 % Normal 36.0-48.[address] [facility] Comment on above: Performed By: #### C BC #### [facility] [address] [place] [address] Dr. Yarely Roe Hemoglobin (Bld) [Mass/Vol] 13.5 g/dL Normal 12.0-16.0 [facility] Comment on above: Performed By: #### C BC #### [facility] [address] [place] [address] Dr. Yarely Roe IG # 0.04 10e3/ul Critically high 0.00-0.[address] [facility] Comment on above: Performed By: #### C BC #### [facility] [address] [place] [address] Dr. Yarely Roe IG % 0.4 % Normal 0.0-0.[address] [facility] Comment on above: Performed By: #### C BC #### [facility] [address] [place] [address] Dr. Yarely Roe LYMPH # 2.1 103/ul Normal 1.2-3.[address] [facility] Comment on above: Performed By: #### C BC #### [facility] [address] [place] [address] Dr. Yarely Roe Lymphocytes/100 WBC (Bld) 22.9 % Normal 20.5-60.[address] [facility] Comment on above: Performed By: #### C BC #### [facility] [address] [place] [address] Dr. Yarely Roe MANUAL DIFF REQ NO Normal [facility] Comment on above: Performed By: #### C BC #### [facility] [address] [place] [address] Dr. Yarely Roe MCH (RBC) [Entitic mass] 31.5 pg Normal 26.7-34.[address] [facility] Comment on above: Performed By: #### C BC #### [facility] [address] [place] [address] Dr. Yarely Roe MCHC (RBC) [Mass/Vol] 32.1 g/dL Normal 29.9-35.[address] [facility] Comment on above: Performed By: #### C BC #### [facility] [address] [place] [address] Dr. Yarely Roe MCV (RBC) [Entitic vol] 98.1 fL Normal 81.0-99.[address] [facility] Comment on above: Performed By: #### C BC #### [facility] [address] [place] [address] Dr. Yarely Roe MONO # 0.6 103/ul Normal 0.3-0.[address] [facility] Comment on above: Performed By: #### C BC #### [facility] [address] [place] [address] Dr. Yarely Roe Monocytes/100 WBC (Bld) 6.1 % Normal 1.7-12.[address] [facility] Comment on above: Performed By: #### C BC #### [facility] [address] [place] [address] Dr. Yarely Roe NEUT # 6.2 103/ul Normal 1.4-6.[address] [facility] Comment on above: Performed By: #### C BC #### [facility] [address] [place] [address] Dr. Yarely Roe Neutrophils/100 WBC (Bld) 66.9 % Normal 43.0-75.[address] [facility] Comment on above: Performed By: #### C BC #### [facility] [address] [place] [address] Dr. Yarely Roe Platelet mean volume (Bld) [Entitic vol] 10.9 fL Normal 9.5-13.[address] [facility] Comment on above: Performed By: #### C BC #### [facility] [address] [place] [address] Dr. Yarely Roe PLT 220 103/ul Normal 150-450 [facility] Comment on above: Performed By: #### C BC #### [facility] [address] [place] [address] Dr. Yarely Roe RBC 4.29 106/ul Normal 4.20-5.40 [facility] Comment on above: Performed By: #### C BC #### [facility] [address] [place] [address] Dr. Yarely Roe WBC 9.2 103/ul Normal 4.0-11.0 [facility] Comment on above: Performed By: #### C BC #### [facility] [address] [place] [address] Dr. Yarely Roe GLYCOHEMOGLOBIN A1Con 2021 ADA RECOMMENDATION ADA THERAPEUTIC TARGET 6.0 - 7.0 ACTION SUGGESTED > 7.[address] [facility] Comment on above: Performed By: #### A 1C #### [facility] [address] [place] [address] Dr. Yarely Roe Glucose [Mass/Vol] 183 mg/dL Normal [facility] Comment on above: Performed By: #### A 1C #### [facility] [address] [place] [address] Dr. Yarely Roe HbA1c (Bld) [Mass fraction] 8.0 % Critically high <=6.[address] [facility] Comment on above: Performed By: #### A 1C #### [facility] [address] [place] [address] Dr. Yarely Roe PROF 14(COMP METB)on 022 Albumin [Mass/Vol] 3.4 g/dL Normal 3.4-5.[address] [facility] Comment on above: Performed By: #### C MP #### [facility] [address] [place] [address] Dr. Yarely Roe Albumin/Globulin [Mass ratio] 0.8 {ratio} Normal [facility] Comment on above: Performed By: #### C MP #### [facility] [address] [place] [address] Dr. Yarely Roe ALP [Catalytic activity/Vol] 59 U/L Normal 46-116 [facility] Comment on above: Performed By: #### C MP #### [facility] [address] [place] [address] Dr. Yarely Roe ALT [Catalytic activity/Vol] 9 U/L Critically low 14-[address] [facility] Comment on above: Performed By: #### C MP #### [facility] [address] [place] [address] Dr. Yarely Roe Anion gap [Moles/Vol] 11.3 mmol/L Normal [facility] Comment on above: Performed By: #### C MP #### [facility] [address] [place] [address] Dr. Yarely Roe AST [Catalytic activity/Vol] 15 U/L Normal 15-[address] [facility] Comment on above: Performed By: #### C MP #### [facility] [address] [place] [address] Dr. Yarely Roe Bilirubin [Mass/Vol] 0.3 mg/dL Normal 0.2-1.[address] [facility] Comment on above: Performed By: #### C MP #### [facility] [address] [address] [address] Yarely Roe Calcium [Mass/Vol] 9.4 mg/dL Normal 8.5-10.[address] [facility] Comment on above: Performed By: #### C MP #### [facility] [address] [address] [address] Yarely Roe Chloride [Moles/Vol] 97 mmol/L Critically low 98-[address] [facility] Comment on above: Performed By: #### C MP #### [facility] [address] [address] [address] Yarely Roe CO2 [Moles/Vol] 33.0 mmol/L Critically high 22.0-30.[address] [facility] Comment on above: Performed By: #### C MP #### [facility] [address] [address] [address] Yarely Roe Creatinine [Mass/Vol] 1.40 mg/dL Critically high 0.52-1.[address] [facility] Comment on above: Performed By: #### C MP #### [facility] [address] [address] [address] Yarely Roe EGFR-AF BAHRAINI 44 mL/min/1.73m2 Critically low >=[address] [facility] Comment on above: Performed By: #### C MP #### [facility] [address] [address] [address] Yarely Roe EGFR-NON AF BAHRAINI 37 mL/min/1.73m2 Critically low >=[address] [facility] Comment on above: Performed By: #### C MP #### [facility] [address] [address] [address] Yarely Roe Globulin (S) [Mass/Vol] 4.3 g/dL Normal [facility] Comment on above: Performed By: #### C MP #### [facility] [address] [address] [address] Yarely Roe Glucose [Mass/Vol] 224 mg/dL Critically high 74-106 T [facility] Comment on above: Performed By: #### C MP #### [facility] [address] [address] [address] Yarely Roe Potassium [Moles/Vol] 3.3 mmol/L Critically low 3.4-5.[address] [facility] Comment on above: Performed By: #### C MP #### [facility] [address] [address] [address] Yarely Roe Protein [Mass/Vol] 7.7 g/dL Normal 6.1-8.[address] [facility] Comment on above: Performed By: #### C MP #### [facility] [address] [address] [address] Yarely Roe Sodium [Moles/Vol] 138 mmol/L Normal 137-[address] [facility] Comment on above: Performed By: #### C MP #### [facility] [address] [address] [address] Yarely Roe Urea nitrogen [Mass/Vol] 27.0 mg/dL Critically high 7.0-18.[address] [facility] Comment on above: Performed By: #### C MP #### [facility] [address] [address] [address] Yarely Roe Urea nitrogen/Creatinine [Mass ratio] 19.3 mg/mg Normal [facility] Comment on above: Performed By: #### C MP #### [facility] [address] [address] [address] [facility] Carotid Artery Dupl ex Ultrasounon 05-08-2020 [facility] Carotid Artery Duplex Ultrasoun [address], [address] [place] [address] Vascular Lab Report Carotid Artery Duplex Ultrasound Patient Name: LEXI CASTILLO Reading Physician: [id number] Charlotte Logan MD, [facility] Study Date: 05/08/2020 Referring Physician: [id number] Tom Morales MD MRN/PID: [id number] PCP: Li Lee Accession/Order#: [id number] CC Report to: Date of : 1945 Technologist: Surekha Hartley RD, RVT Gender: F Technologist 2: Admission Status: Outpatient Location Performed: [facility] Diagnosis/ICD: R09.89-Other specified symptoms and signs involving the circulatory and respiratory systems Indication: Diabetes, Hyperlipidemia, Former Smoker, Vertigo, CAD, CABG, Ischemic Cardiomyopathy, PTCA, IL, Obesity Procedure/CPT: 71878 Cerebrovascular Carotid Duplex scan complete-[id number] CONCLUSIONS: Right Carotid: Findings are consistent with [...] cm/s Right Left ICA/CCA Ratio 2.2 0.9 [id number] Charlotte Logan MD, FACC Final Normal [facility] HEMOGLOBIN A1Con 06-17-2019 HbA1c (Bld) [Mass fraction] 7.5 % Normal [facility] Comment on above: Result Comment: Diag nosis of Diabetes-Adults Non-Diabetic: < or = 5.6% Increased risk for developing diabetes: 5.7-6.4% Diagnostic of diabetes: > or = 6.5% . Monitoring of Diabetes Age (y) Therapeutic Goal (%) Adults: >18 <7.0 Pediatrics: 13-18 <7.5 7-12 <8.0 0- 6 7.5-8.5 [place] [employer]. Diabetes Care 33(S1), Jul 2009. Performed By: #### H BA1E #### [facility] [address] [place] [address] HbA1c (Bld) [Mass fraction] 169 MG/DL Normal [facility] Comment on above: Performed By: #### H BA1E #### [facility] [address] [place] [address] Anthony 06-16-2019 AST [Catalytic activity/Vol] 18 U/L Normal 9 - 39 [facility] Comment on above: Order Comment: Desean nt states she had black coffee this a.m. Performed By: #### A ST #### [address] [address] COMPREHENSIVE PANELon 2018 Albumin [Mass/Vol] 4.1 g/dL Normal 3.4 - 5.0 [facility] Comment on above: Performed By: #### C MP #### [address] [address] ALP [Catalytic activity/Vol] 62 U/L Normal 33 - 136 [facility] Comment on above: Performed By: #### C MP #### [address] [address] ALT [Catalytic activity/Vol] 12 U/L Normal 7 - 45 [facility] Comment on above: Result Comment: Yareli ents treated with Sulfasalazine may generate falsely decreased results for ALT. Performed By: #### C MP #### [address] [address] Anion gap [Moles/Vol] 13 mmol/L Normal 10 - 20 [facility] Comment on above: Performed By: #### C MP #### [address] [address] AST [Catalytic activity/Vol] 16 U/L Normal 9 - 39 [facility] Comment on above: Performed By: #### C MP #### [address] [address] Bilirubin [Mass/Vol] 0.5 mg/dL Normal 0.0 - 1.2 [facility] Comment on above: Performed By: #### C MP #### [address] [address] Calcium [Mass/Vol] 9.8 mg/dL Normal 8.6 - 10.3 [facility] Comment on above: Performed By: #### C MP #### [address] [address] Chloride [Moles/Vol] 103 mmol/L Normal 98 - 107 [facility] Comment on above: Performed By: #### C MP #### [address] [address] Creatinine [Mass/Vol] 1.32 mg/dL High 0.50 - 1.05 [facility] Comment on above: Performed By: #### C MP #### [address] [address] GFR- AM. 47 mL/min/1.73m2 Abnormal >60 [facility] Comment on above: Result Comment: CALC ULATIONS OF ESTIMATED GFR ARE PERFORMED USING THE MDRD STUDY EQUATION FOR THE IDMS-TRACEABLE CREATININE METHODS. CLIN CHEM 2007;53:766-72 Performed By: #### C MP #### [address] [address] GFR-NON AM. 39 mL/min/1.73m2 Abnormal >60 [facility] Comment on above: Performed By: #### C MP #### [address] [address] Glucose [Mass/Vol] 115 mg/dL High 74 - 99 [facility] Comment on above: Performed By: #### C MP #### [address] [address] HCO3 (Bld) [Moles/Vol] 25 mmol/L Normal 21 - 32 [facility] Comment on above: Performed By: #### C MP #### [address] [address] Potassium [Moles/Vol] 5.4 mmol/L High 3.5 - 5.3 [facility] Comment on above: Performed By: #### C MP #### [address] [address] Protein [Mass/Vol] 7.5 g/dL Normal 6.4 - 8.2 [facility] Comment on above: Performed By: #### C MP #### [address] [address] Sodium [Moles/Vol] 136 mmol/L Normal 136 - 145 [facility] Comment on above: Performed By: #### C MP #### [address] [address] Urea nitrogen [Mass/Vol] 40 mg/dL High 6 - 23 [facility] Comment on above: Performed By: #### C MP #### [address] [address] LIPID PANEL (CORONARY RISK 2 )on 06-16-2019 Cholesterol [Mass/Vol] 182 mg/dL Normal 0 - 199 [facility] Comment on above: Order Comment: Desean [...] dosing. Performed By: #### L IPID #### [address] [address] Cholesterol in HDL [Mass/Vol] 39.0 mg/dL Abnormal [facility] Comment on above: Order Comment: Desean hernandez states she had black coffee this a.m. Result Comment: . AGE VERY LOW LOW NORMAL HIGH 0-19 Y < 35 < 40 40-45 ---- 20-24 Y ---- < 40 >45 ---- >24 Y ---- < 40 40-60 >60 . Performed By: #### L IPID #### [address] [address] Cholesterol in LDL [Mass/Vol] 92 mg/dL Normal 0 - 99 [facility] Comment on above: Order Comment: Desean hernandez states she had black coffee this a.m. Result Comment: . NEAR BORD AGE DESIRABLE OPTIMAL HIGH HIGH VERY HIGH 0-19 Y 0 - 109 --- 110-129 >/= 130 ---- 20-24 Y 0 - 119 --- 120-159 >/= 160 ---- >24 Y 0 - 99 100-129 130-159 160-189 >/=190 . Performed By: #### L IPID #### [address] [address] Cholesterol in VLDL [Mass/Vol] 51 mg/dL High 0 - 40 [facility] Comment on above: Order Comment: Desean hernandez states she had black coffee this a.m. Performed By: #### L IPID #### [address] [address] Cholesterol.total/C holesterol in HDL [Mass ratio] 4.7 {ratio} Normal [facility] Comment on above: Order Comment: Desean hernandez states she had black coffee this a.m. Result Comment: REF VALUES DESIRABLE < 3.4 HIGH RISK > 5.0 Performed By: #### L IPID #### [address] [address] NON-HDL CHOLESTEROL 143 mg/dL Normal [facility] Comment on above: Order Comment: Desean hernandez states she had black coffee this a.m. Result Comment: AGE DESIRABLE BORDERLINE HIGH HIGH VERY HIGH 0-19 Y 0 - 119 120 - 144 >/= 145 >/= 160 20-24 Y 0 - 149 150 - 189 >/= 190 ---- >24 Y 30 MG/DL ABOVE LDL CHOLESTEROL GOAL . Performed By: #### L IPID #### [facility] [address] [place] [address] Triglyceride [Mass/Vol] 255 mg/dL High 0 - 149 [facility] Comment on above: Order Comment: Desean [...] dosing. Performed By: #### L IPID #### [address] [address] Vital Signs Date Time Vital Sign Value Performing Clinician Facility 08-11-2024 15:39-0500 Diastolic blood pressure 60 mm[Hg] Angela Braun [employer] 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 Work Phone: [facility] 08-11-2024 15:39-0500 Systolic blood pressure 102 mm[Hg] Angela Braun [employer] 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 Work Phone: [facility] 08-11-2024 15:23-0500 Body height 149.9 cm Angela Braun [employer] 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 Work Phone: [facility] 08-11-2024 15:23-0500 Body mass index (BMI) [Ratio] 33.33 kg/m2 Angela Braun [employer] 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 Work Phone: [facility] 08-11-2024 15:23-0500 Body weight 74.84 kg Angela Braun [employer] 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 Work Phone: [facility] 08-11-2024 15:23-0500 Heart rate 54 /min Angela Braun [employer] 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 Work Phone: [facility] 08-03-2024 11:09-0500 Body height 149.86 cm Stefan Best MD Work Phone: [facility] 08-03-2024 11:09-0500 Diastolic blood pressure 71 mm[Hg] Stefan Best MD Work Phone: [facility] 08-03-2024 11:09-0500 Heart rate 66 /min Stefan Best MD Work Phone: [facility] 08-03-2024 11:09-0500 Respiratory rate 16 /min Stefan Best MD Work Phone: [facility] 08-03-2024 11:09-0500 SaO2% (BldA) [Mass fraction] 96 % Stefan Best MD Work Phone: [facility] 08-03-2024 11:09-0500 Systolic blood pressure 153 mm[Hg] Stefan Best MD Work Phone: [facility] 07-01-2024 11:08-0500 Body height 149.86 cm Stefan Best MD Work Phone: [facility] 07-01-2024 11:08-0500 Body mass index (BMI) [Ratio] 33.3 kg/m2 Stefan Best MD Work Phone: [facility] 07-01-2024 11:08-0500 Body weight 74.84 kg Stefan Best MD Work Phone: [facility] 07-01-2024 11:08-0500 Diastolic blood pressure 72 mm[Hg] Stefan Best MD Work Phone: [facility] 07-01-2024 11:08-0500 Heart rate 78 /min Stefan Best MD Work Phone: [facility] 07-01-2024 11:08-0500 SaO2% (BldA) [Mass fraction] 96 % Stefan Best MD Work Phone: [facility] 07-01-2024 11:08-0500 Systolic blood pressure 128 mm[Hg] Stefan Best MD Work Phone: [facility] 06-28-2024 10:38-0500 Body height 149.86 cm Stefan Best MD Work Phone: [facility] 06-28-2024 10:38-0500 Body mass index (BMI) [Ratio] 33.3 kg/m2 Stefan Best MD Work Phone: [facility] 06-28-2024 10:38-0500 Body weight 74.84 kg Stefan Best MD Work Phone: [facility] 06-24-2024 10:14-0500 Body height 149.86 cm Stefan Best MD Work Phone: [facility] 06-24-2024 10:14-0500 Body temperature 98.1 [degF] Stefan Best MD Work Phone: [facility] 06-24-2024 10:14-0500 Body weight 74.84 kg Stefan Best MD Work Phone: [facility] 06-24-2024 10:14-0500 Diastolic blood pressure 59 mm[Hg] Stefan Best MD Work Phone: [facility] 06-24-2024 10:14-0500 Heart rate 66 /min Stefan Best MD Work Phone: [facility] 06-24-2024 10:14-0500 Respiratory rate 14 /min Stefan Best MD Work Phone: [facility] 06-24-2024 10:14-0500 SaO2% (BldA) [Mass fraction] 97 % Stefan Best MD Work Phone: [facility] 06-24-2024 10:14-0500 Systolic blood pressure 143 mm[Hg] Stefan Best MD Work Phone: [facility] 2024 10:02-0500 Diastolic blood pressure 68 mm[Hg] Stefan Best MD Work Phone: [facility] 2024 10:02-0500 Heart rate 67 /min Stefan Best MD Work Phone: [facility] 2024 10:02-0500 Respiratory rate 20 /min Stefan Best MD Work Phone: [facility] 2024 10:02-0500 SaO2% (BldA) [Mass fraction] 97 % Stefan Best MD Work Phone: [facility] 2024 10:02-0500 Systolic blood pressure 166 mm[Hg] Stefan Best MD Work Phone: [facility] 2024 09:12-0500 Body temperature 97.2 [degF] Stefan Best MD Work Phone: [facility] 2024 07:28-0500 Body height 149.86 cm Stefan Best MD Work Phone: [facility] 2024 07:28-0500 Body weight 74.84 kg Stefan Best MD Work Phone: [facility] 05-20-2024 10:00-0500 Body height 149.86 cm Stefan Best MD Work Phone: [facility] 05-20-2024 10:00-0500 Body mass index (BMI) [Ratio] 33.3 kg/m2 Stefan Best MD Work Phone: [facility] 05-20-2024 10:00-0500 Body weight 74.84 kg Stefan Best MD Work Phone: [facility] 05-20-2024 10:00-0500 Diastolic blood pressure 82 mm[Hg] Stefan Best MD Work Phone: [facility] 05-20-2024 10:00-0500 Heart rate 65 /min Stefan Best MD Work Phone: [facility] 05-20-2024 10:00-0500 SaO2% (BldA) [Mass fraction] 96 % Stefan Best MD Work Phone: [facility] 05-20-2024 10:00-0500 Systolic blood pressure 132 mm[Hg] Stefan Best MD Work Phone: [facility] 03-22-2024 14:230400 Body height 149.86 cm MD Stefan Best Work Phone: [facility] 03-22-2024 14:23-0400 Body mass index (BMI) [Ratio] 33.3 kg/m2 MD Stefan Best Work Phone: [facility] 03-22-2024 14:23-0400 Body temperature 96.7 [degF] MD Stefan Best Work Phone: [facility] 03-22-2024 14:23-0400 Body weight 74.84 kg MD Stefan Best Work Phone: [facility] 03-22-2024 14:23-0400 Diastolic blood pressure 70 mm[Hg] MD Stefan Best Work Phone: [facility] 03-22-2024 14:23-0400 Heart rate 76 /min MD Stefan Best Work Phone: [facility] 03-22-2024 14:23-0400 Respiratory rate 16 /min MD Stefan Best Work Phone: [facility] 03-22-2024 14:23-0400 SaO2% (BldA) [Mass fraction] 97 % MD Stefan Best Work Phone: [facility] 03-22-2024 14:23-0400 Systolic blood pressure 130 mm[Hg] MD Stefan Best Work Phone: [facility] 03-05-2024 13:28-0400 Body height 149.86 cm MD Stefan Best Work Phone: [facility] 03-05-2024 13:28-0400 Body mass index (BMI) [Ratio] 33.3 kg/m2 MD Stefan Best Work Phone: [facility] 03-05-2024 13:28-0400 Body weight 74.84 kg MD Stefan Best Work Phone: [facility] 03-05-2024 13:28-0400 Diastolic blood pressure 82 mm[Hg] MD Steafn Best Work Phone: [facility] 03-05-2024 13:28-0400 Heart rate 74 /min MD Stefan Best Work Phone: [facility] 03-05-2024 13:28-0400 Systolic blood pressure 147 mm[Hg] MD Stefan Best Work Phone: [facility] 02-29-2024 17:00-0400 Hourly Rounding Mbanefo OJUKWU [facility] 02-29-2024 17:00-0400 Promise to Return Mbanefo OJUKWU [facility] 02-29-2024 16:00-0400 Diastolic blood pressure 60 mm[Hg] Mbanefo OJUKWU [facility] 02-29-2024 16:00-0400 Heart rate 80 /min Mbanefo OJUKWU [facility] 02-29-2024 16:00-0400 Hourly Rounding Mbanefo OJUKWU [facility] 02-29-2024 16:00-0400 Mean blood pressure 78 mm[Hg] Mbanefo OJUKWU [facility] 02-29-2024 16:00-0400 Promise to Return Mbanefo OJUKWU [facility] 02-29-2024 16:00-0400 Respiratory rate 16 /min Mbanefo OJUKWU [facility] 02-29-2024 16:00-0400 SaO2% (BldA) [Mass fraction] 98 % Mbanefo OJUKWU [facility] 02-29-2024 16:00-0400 Systolic blood pressure 114 mm[Hg] Mbanefo OJUKWU [facility] 02-29-2024 15:22-0400 Respiratory rate 18 /min Mbanefo OJUKWU [facility] 02-29-2024 15:22-0400 SaO2% (BldA) [Mass fraction] 92 % Mbanefo OJUKWU [facility] 02-29-2024 15:22-0400 SaO2% (BldA) [Mass fraction] 91 % Mbanefo OJUKWU [facility] 02-29-2024 15:00-0400 Hourly Rounding Mbanefo OJUKWU [facility] 02-29-2024 15:00-0400 Promise to Return Mbanefo OJUKWU [facility] 02-29-2024 11:18-0400 gluc 137 mg/dL Mbanefo OJUKWU [facility] 02-29-2024 10:52-0400 Heart rate 72 /min Mbanefo OJUKWU [facility] 02-29-2024 10:49-0400 Diastolic blood pressure 63 mm[Hg] Mbanefo OJUKWU [facility] 02-29-2024 10:49-0400 Mean blood pressure 80 mm[Hg] Mbanefo OJUKWU [facility] 02-29-2024 10:49-0400 Systolic blood pressure 115 mm[Hg] Mbanefo OJUKWU [facility] 02-29-2024 10:49-0400 Body temperature 98.24 [degF] Mbanefo OJUKWU [facility] 02-29-2024 07:55-0400 gluc 130 mg/dL Mbanefo OJUKWU [facility] 02-29-2024 07:40-0400 Respiratory rate 18 /min Mbanefo OJUKWU [facility] 02-29-2024 07:38-0400 Heart rate 73 /min Mbanefo OJUKWU [facility] 02-29-2024 07:36-0400 Blood Pressure Location Mbanefo OJUKWU [facility] 02-29-2024 07:36-0400 Diastolic blood pressure 54 mm[Hg] Mbanefo OJUKWU [facility] 02-29-2024 07:36-0400 Mean blood pressure 77 mm[Hg] Mbanefo OJUKWU [facility] 02-29-2024 07:36-0400 Systolic blood pressure 123 mm[Hg] Mbanefo OJUKWU [facility] 02-29-2024 07:35-0400 Body temperature 98.06 [degF] Mbanefo OJUKWU [facility] 02-29-2024 03:30-0400 Body temperature 97.34 [degF] Mbanefo OJUKWU [facility] 02-29-2024 03:30-0400 Mean blood pressure 75 mm[Hg] Mbanefo OJUKWU [facility] 02-28-2024 19:00-0400 Body temperature 98.78 [degF] Mbanefo OJUKWU [facility] 02-28-2024 17:47-0400 gluc 118 mg/dL Mbanefo OJUKWU [facility] 02-28-2024 17:16-0400 Mean blood pressure 94 mm[Hg] Mbanefo OJUKWU [facility] 02-28-2024 14:00-0400 Body temperature 100.04 [degF] Mbanefo OJUKWU [facility] 02-28-2024 14:00-0400 Mean blood pressure 97 mm[Hg] Mbanefo OJUKWU [facility] 02-28-2024 10:00-0400 Heart rate 73 /min Mbanefo OJUKWU [facility] 02-27-2024 03:33-0400 Respiratory rate 17 /min Mbanefo OJUKWU [facility] 02-26-2024 23:49-0400 Respiratory rate 16 /min Mbanefo OJUKWU [facility] 02-26-2024 19:00-0400 Respiratory rate 20 /min Mbanefo OJUKWU [facility] 02-26-2024 17:35-0400 gluc Mbanefo OJUKWU [facility] 02-26-2024 17:30-0400 Heart rate 78 /min Allison RIOSU [facility] 02-10-2024 15:35-0400 Blood Pressure Location Yaniv NATARAJAN [facility] 02-10-2024 15:35-0400 Diastolic blood pressure 62 mm[Hg] Yaniv NATARAJAN [facility] 02-10-2024 15:35-0400 Heart rate 78 /min Yaniv NATARAJAN [facility] 02-10-2024 15:35-0400 Respiratory rate 16 /min Yaniv NATARAJAN [facility] 02-10-2024 15:35-0400 Systolic blood pressure 144 mm[Hg] Yaniv NATARAJAN [facility] 02-03-2024 15:29-0400 Body height 149.86 cm MD Stefan Best Work Phone: [facility] 02-03-2024 15:29-0400 Body mass index (BMI) [Ratio] 33.3 kg/m2 MD Stefan Best Work Phone: [facility] 02-03-2024 15:29-0400 Body weight 74.84 kg MD Stefan Best Work Phone: [facility] 02-03-2024 15:29-0400 Diastolic blood pressure 75 mm[Hg] MD Stefan Best Work Phone: [facility] 02-03-2024 15:29-0400 Heart rate 72 /min MD Stefan Best Work Phone: [facility] 02-03-2024 15:29-0400 Systolic blood pressure 132 mm[Hg] MD Steafn Best Work Phone: [facility] 01-25-2024 12:00-0400 Body temperature 98.6 [degF] MD Stefan Best Work Phone: [facility] 01-25-2024 12:00-0400 Diastolic blood pressure 70 mm[Hg] MD Stefan Best Work Phone: [facility] 01-25-2024 12:00-0400 Heart rate 80 /min MD Stefan Best Work Phone: [facility] 01-25-2024 12:00-0400 Respiratory rate 18 /min MD Stefan Best Work Phone: [facility] 01-25-2024 12:00-0400 SaO2% (BldA) [Mass fraction] 92 % MD Stefan Best Work Phone: [facility] 01-25-2024 12:00-0400 Systolic blood pressure 135 mm[Hg] MD Stefan Best Work Phone: [facility] 01-25-2024 05:31-0400 Body weight 80 kg MD Stefan Best Work Phone: [facility] 01-24-2024 12:17-0400 Inhaled oxygen flow rate 2 L/min MD Stefan Best Work Phone: [facility] 01-23-2024 16:29-0400 Body height 149.86 cm MD Stefan Best Work Phone: [facility] 01-23-2024 16:29-0400 Body mass index (BMI) [Ratio] 34.5 kg/m2 MD Stefan Best Work Phone: [facility] 01-12-2024 16:11-0400 Body height 149.86 cm MD Stefan Best Work Phone: [facility] 01-12-2024 16:11-0400 Body mass index (BMI) [Ratio] 33.3 kg/m2 MD Stefan Best Work Phone: [facility] 01-12-2024 16:11-0400 Body temperature 96.4 [degF] MD Stefan Best Work Phone: [facility] 01-12-2024 16:11-0400 Body weight 74.84 kg MD Stefan Best Work Phone: [facility] 01-12-2024 16:11-0400 Diastolic blood pressure 80 mm[Hg] MD Stefan Best Work Phone: [facility] 01-12-2024 16:11-0400 Heart rate 82 /min MD Stefan Best Work Phone: [facility] 01-12-2024 16:11-0400 Respiratory rate 16 /min MD Stefan Best Work Phone: [facility] 01-12-2024 16:11-0400 SaO2% (BldA) [Mass fraction] 97 % MD Stefan Best Work Phone: [facility] 01-12-2024 16:11-0400 Systolic blood pressure 149 mm[Hg] MD Stefan Best Work Phone: [facility] 12-11-2023 15:50-0400 Body height 149.86 cm MD Stefan Best Work Phone: [facility] 12-11-2023 15:50-0400 Body mass index (BMI) [Ratio] 33.7 kg/m2 MD Stefan Best Work Phone: [facility] 12-11-2023 15:50-0400 Body weight 75.74 kg MD Stefan Best Work Phone: [facility] 12-11-2023 15:50-0400 Diastolic blood pressure 81 mm[Hg] MD Stefan Best Work Phone: [facility] 12-11-2023 15:50-0400 Heart rate 87 /min MD Stefan Best Work Phone: [facility] 12-11-2023 15:50-0400 Systolic blood pressure 167 mm[Hg] MD Stefan Best Work Phone: [facility] 11-27-2023 13:56-0400 Body height 149.86 cm MD Stefan Best Work Phone: [facility] 11-27-2023 13:56-0400 Body mass index (BMI) [Ratio] 33.9 kg/m2 MD Stefan Best Work Phone: [facility] 11-27-2023 13:56-0400 Body weight 76.2 kg MD Stefan Best Work Phone: [facility] 11-27-2023 13:56-0400 Diastolic blood pressure 81 mm[Hg] MD Stefan Best Work Phone: [facility] 11-27-2023 13:56-0400 Heart rate 76 /min MD Stefan Best Work Phone: [facility] 11-27-2023 13:56-0400 Systolic blood pressure 166 mm[Hg] MD Stefan Best Work Phone: [facility] 10-14-2023 13:33-0400 Diastolic blood pressure 68 mm[Hg] Margie 1 [facility] 10-14-2023 13:33-0400 Heart rate 78 /min Margie 1 [facility] 10-14-2023 13:33-0400 Systolic blood pressure 108 mm[Hg] Margie 1 [facility] 09-17-2023 13:07-0500 Body height 149.9 cm Tom Morales MD Work Phone: [facility] 09-17-2023 13:07-0500 Body mass index (BMI) [Ratio] 33.33 kg/m2 Tom Morales MD Work Phone: [facility] 09-17-2023 13:07-0500 Body weight 74.84 kg Tom Morales MD Work Phone: [facility] 09-17-2023 13:07-0500 Diastolic blood pressure 70 mm[Hg] Tom Morales MD Work Phone: [facility] 09-17-2023 13:07-0500 Heart rate 84 /min Tom Morales MD Work Phone: [facility] 09-17-2023 13:07-0500 Systolic blood pressure 116 mm[Hg] Tom Morales MD Work Phone: [facility] 09-09-2023 15:18-0500 Body height 149.86 cm [facility] 09-09-2023 15:18-0500 Body mass index (BMI) [Ratio] 33.3 kg/m2 [facility] 09-09-2023 15:18-0500 Body weight 74.84 kg [facility] 09-09-2023 15:18-0500 Diastolic blood pressure 74 mm[Hg] [facility] 09-09-2023 15:18-0500 Heart rate 86 /min [facility] 09-09-2023 15:18-0500 Systolic blood pressure 117 mm[Hg] [facility] 08-13-2023 13:00-0500 Body height Da Lozano II Other [employer] [facility] [employer] Other 08-13-2023 13:00-0500 Body height 149.86 cm [facility] 11-12-2022 15:30-0400 Body height Ross Colmenares Other [employer] Other 11-12-2022 15:30-0400 Body mass index (BMI) [Ratio] 33.32 kg/m2 Ross Colmenares Other [employer] Other 11-12-2022 15:30-0400 Body weight 74.84 kg Ross Colmenares Other [employer] Other 07-25-2022 15:55-0500 Body height 149.86 cm Li Lee Work Phone: [facility]Jxhaoeynea-Pgtotg [place] 250 DO Work Phone: 07-25-2022 15:55-0500 Body mass index (BMI) [Ratio] 34.94 kg/m2 Li Lee Work Phone: UM[facility]Pfjzjnhixv-Knwigr [place] 250 DO Work Phone: 07-25-2022 15:55-0500 Body surface area Derived from formula 1.73 m2 Li Lee Work Phone: TM-Jhnvvgnbww-Uzydqd [place] 250 DO Work Phone: 07-25-2022 15:55-0500 Body weight 78.47 kg Li Lee Work Phone: YE-Mobjzmfcgd-Mgtbjp [place] 250 DO Work Phone: 07-25-2022 15:55-0500 Diastolic blood pressure 80 mm[Hg] Li Lee Work Phone: UI-Ahmssofbvz-Uzdgpg [place] 250 DO Work Phone: 07-25-2022 15:55-0500 Heart rate 66 /min Li Lee Work Phone: PB-Dflmwarlpu-Boenoq [place] 250 DO Work Phone: 07-25-2022 15:55-0500 Systolic blood pressure 120 mm[Hg] Li Lee Work Phone: OL-Yoidgejmwm-Qhqysf [place] 250 DO Work Phone: 11-02-2021 13:16-0400 Body height 149.86 cm Li Lee Work Phone: [facility] 250 DO Work Phone: 11-02-2021 13:16-0400 Body mass index (BMI) [Ratio] 34.54 kg/m2 Li Lee Work Phone: [facility] 250 DO Work Phone: 11-02-2021 13:16-0400 Body surface area Derived from formula 1.73 m2 Li Lee Work Phone: [facility] 250 DO Work Phone: 11-02-2021 13:16-0400 Body weight 77.57 kg Li Lee Work Phone: [facility] 250 DO Work Phone: 11-02-2021 13:16-0400 Diastolic blood pressure 80 mm[Hg] Li Lee Work Phone: [facility] 250 DO Work Phone: 11-02-2021 13:16-0400 Heart rate 66 /min Li Lee Work Phone: [facility] 250 DO Work Phone: 11-02-2021 13:16-0400 Systolic blood pressure 130 mm[Hg] Li Lee Work Phone: [facility] 250 DO Work Phone: Encounters Encounter Date Encounter Type Care Provider Facility Start: 08-11-2024 End: 08-11-2024 ambulatory ANGELA [facility] Ambulatory Start: 08-11-2024 End: 08-11-2024 Office outpatient visit 25 minutes [facility] [employer] 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 Work Phone: [facility] Comment on above: CAD, multiple vessel (Primary Dx); Occlusion and stenosis of right carotid artery; Ischemic cardiomyopathy; Primary hypertension; Mixed hyperlipidemia; Type 2 diabetes mellitus without complication, with long-term current use of insulin (Multi); BMI 33.0-33.9,adult; Chronic kidney disease, stage 3b (Multi); Bruit of right carotid artery; PVD (peripheral vascular disease) ([facility]) Start: 08-03-2024 End: 08-03-2024 ambulatory Stefan Best MD Work Phone: [facility] Work Phone: Start: 08-03-2024 End: 08-03-2024 Patient encounter procedure Stefan Best MD Work Phone: [facility] Work Phone: Start: 07-15-2024 End: 07-15-2024 Patient encounter procedure Stefan Best MD Work Phone: [facility] [place] Work Phone: Start: 07-15-2024 End: 07-15-2024 ambulatory Stefan Best MD Work Phone: [facility] Work Phone: Start: 07-12-2024 End: 07-12-2024 ambulatory Stefan Best MD Work Phone: [facility] Work Phone: Start: 07-12-2024 End: 07-12-2024 Departed Referred Stefan Best MD Work Phone: [facility] [place] Start: 07-01-2024 End: 07-01-2024 Patient encounter procedure Stefan Best MD Work Phone: [facility] Work Phone: Start: 06-28-2024 End: 06-28-2024 Patient encounter procedure Stefan Best MD Work Phone: [facility] Work Phone: Start: 06-28-2024 End: 06-28-2024 ambulatory Stefan Best Facility:[facility] Start: 06-24-2024 End: 06-24-2024 Patient encounter procedure Stefan Best MD Work Phone: [facility] Work Phone: Start: 06-24-2024 End: 06-24-2024 ambulatory Stefan Best Facility:[facility] Start: 2024 End: 2024 Admission to same day surgery center Stefan Best MD Work Phone: [facility] [place] Start: 2024 End: 2024 ambulatory Yaniv Natarajan Facility:[facility] Start: 2024 End: 2024 ambulatory Yaniv NATARAJAN Facility:[id number] Start: 05-25-2024 End: 05-25-2024 Patient encounter procedure Stefan Best MD Work Phone: [facility] Work Phone: Start: 05-25-2024 End: 05-25-2024 ambulatory Stefan Best MD Work Phone: [facility] Work Phone: Start: 05-25-2024 End: 05-25-2024 Departed Referred Stefan Best MD Work Phone: [facility] [place] Work Phone: Start: 05-21-2024 End: 05-21-2024 Patient encounter procedure Stefan Best MD Work Phone: [facility] Work Phone: Start: 05-21-2024 End: 05-21-2024 ambulatory Stefan Best MD Work Phone: [facility] Work Phone: Start: 05-21-2024 Encounter for preprocedural laboratory examination Yaniv Natarajan [facility] Start: 05-20-2024 End: 05-20-2024 Encounter for other preprocedural examination Stefan Best MD Work Phone: [facility] Start: 05-20-2024 End: 05-20-2024 Patient encounter procedure Stefan Best MD Work Phone: [facility] Work Phone: Start: 05-14-2024 Non-patient / Non-visit Stefan Best MD Work Phone: [facility] Work Phone: Start: 05-14-2024 ambulatory Yaniv NATARAJAN Facility :[id number] Start: 04-07-2024 End: 04-07-2024 Departed Referred MD Stefan Best Work Phone: [facility] [place] Work Phone: Start: 04-07-2024 End: 04-07-2024 ambulatory MD tSefan Best Work Phone: [facility] Work Phone: Start: 04-07-2024 End: 04-07-2024 Patient encounter procedure MD Stefan Best Work Phone: [facility] Work Phone: Start: 03-22-2024 End: 03-22-2024 ambulatory MD Stefan Best Work Phone: [facility] Work Phone: Start: 03-22-2024 End: 03-22-2024 Patient encounter procedure MD Stefan Best Work Phone: [facility] [place] Work Phone: Start: 03-19-2024 Non-patient / Non-visit MD Sulema Best Work Phone: [facility] Work Phone: Start: 03-17-2024 Non-patient / Non-visit MD Sulema Best Work Phone: [facility] Work Phone: Start: 03-05-2024 End: 03-05-2024 ambulatory MD Stefan Best Work Phone: [facility] Work Phone: Start: 03-05-2024 End: 03-05-2024 Patient encounter procedure MD Stefan Best Work Phone: [facility] Work Phone: Start: 02-26-2024 ambulatory Damian RUSS Facility:[facility] Start: 02-26-2024 Emergency department patient visit [facility] Facility:[facility] Start: 02-26-2024 End: 02-29-2024 Evaluation and management of inpatient Allison PARKKWU Facility:[facility] Start: 02-10-2024 End: 02-10-2024 ambulatory Yaniv NATARAJAN Facility:[facility] Start: 02-10-2024 End: 02-10-2024 Patient encounter procedure Yaniv NATARAJAN [facility] Start: 02-03-2024 End: 02-03-2024 ambulatory MD Stefan Best Work Phone: [facility] Work Phone: Start: 02-03-2024 End: 02-03-2024 Patient encounter procedure MD Stefan Best Work Phone: [facility] Work Phone: Start: 01-26-2024 ambulatory [employer] COVERER Maxine Llanes Facilit y: [place] Start: 01-23-2024 Non-patient / Non-visit MD Sulema Best Work Phone: [facility] Work Phone: Start: 01-23-2024 End: 01-23-2024 ambulatory Yaniv NATARAJAN Facility:[id number] Start: 01-22-2024 End: 01-25-2024 Evaluation and management of inpatient MD Stefan Best Work Phone: [facility] Work Phone: Start: 01-12-2024 End: 01-12-2024 ambulatory MD Stefan Best Work Phone: [facility] Work Phone: Start: 01-12-2024 End: 01-12-2024 Patient encounter procedure MD Stefan Best Work Phone: [facility] Ne[facility] Work Phone: Start: 12-11-2023 End: 12-11-2023 ambulatory MD Stefan Best Work Phone: [facility] Work Phone: Start: 12-11-2023 End: 12-11-2023 Patient encounter procedure MD Stefan Best Work Phone: [facility] Work Phone: Start: 12-06-2023 Non-patient / Non-visit MD Sulema Best Work Phone: [facility] Work Phone: Start: 12-02-2023 End: 12-02-2023 Patient encounter procedure MD Stefan Best Work Phone: [facility] Start: 12-02-2023 End: 12-02-2023 ambulatory MD Stefan Best Work Phone: [facility] Work Phone: Start: 11-27-2023 Patient encounter status MD Carlo Best Work Phone: [facility] Start: 11-27-2023 End: 11-27-2023 Patient encounter procedure MD Stefan Best Work Phone: [facility] Work Phone: Start: 11-22-2023 Non-patient / Non-visit MD Sulema Best Work Phone: [facility] Work Phone: Start: 11-19-2023 End: 11-19-2023 ambulatory [employer]LE[employer] COVER[employer] Maxine Llanes Facility:[facility] Start: 10-23-2023 End: 10-23-2023 ambulatory [facility] Work Phone: Start: 10-23-2023 End: 10-23-2023 Patient encounter procedure [facility] Work Phone: Start: 10-14-2023 End: 10-14-2023 Subsequent hospital visit by physician Margie Juárez Stress Room 1 [facility] Comment on above: CAD, multiple vessel ; S/P CABG x 3; Ischemic cardiomyopathy; Occlusion and stenosis of right carotid artery; Shortness of breath Start: 10-14-2023 End: 10-14-2023 ambulatory [facility] Start: 09-17-2023 ambulatory [employer]SELE[employer] B[employer] COVERER Maxine L Shraddha Facil ity:[facility] MARAYM [facility]ures[facility] Start: 09-17-2023 End: 09-17-2023 Patient encounter procedure [facility] Work Phone: Start: 09-17-2023 End: 09-17-2023 Office outpatient visit 25 minutes Tom Morales MD Work Phone: [facility] Comment on above: CAD, multiple vessel (Primary Dx); S/P CABG x 3; History of angioplasty; Primary hypertension; Ischemic cardiomyopathy; Mixed hyperlipidemia; BMI 32.0-32.9,adult; Former smoker; Occlusion and stenosis of right carotid artery; Shortness of breath Start: 09-17-2023 End: 09-17-2023 ambulatory [facility] Start: 09-09-2023 End: 09-09-2023 Patient encounter procedure [facility] Work Phone: Start: 09-08-2023 End: 09-08-2023 ambulatory [employer] COVERER Maxine L Shraddha Facility: [facility] Start: 08-20-2023 End: 08-20-2023 ambulatory [employer]SELEAF B[employer]ER COVERER Maxine L Shraddha Facility:[facility] Start: 08-13-2023 End: 08-13-2023 ambulatory Da Lozano II Other [employer] Other Start: 08-13-2023 Office outpatient vi sit 15 minutes Da Lozano II [facility] Start: 08-13-2023 End: 08-13-2023 Patient encounter procedure [facility] Physician [facility]- Start: 05-21-2023 End: 05-21-2023 ambulatory [employer]SELE[employer] COVERER Maxine L Shraddha Facility:[facility] Start: 04-23-2023 (Procedure) [facility] Start: 04-23-2023 End: 04-23-2023 ambulatory Ross Colmenares Other [employer] Other Start: 04-07-2023 End: 04-07-2023 ambulatory Ross Colmenares Other [employer] Other Start: 04-07-2023 Telephone encounter Ross Colmenares [facility] [facility] Start: 03-27-2023 End: 03-27-2023 ambulatory Da Etowah II Other [employer] Other Start: 03-27-2023 Office outpatient vi sit 15 minutes Da Blake II [facility] [place] [facility] Start: 03-25-2023 ambulatory [employer]SELEAF BINDER COVERER Maxine L Shraddha Facil ity:[facility] [place] Start: 03-05-2023 End: 03-05-2023 ambulatory L[employer]SELEAF BINDER COVERER Maxine L Shraddha Facility:[facility] [place] [facility] Start: 02-10-2023 End: 02-10-2023 Lab Drop off Maxine L Shraddha [facility] Start: 12-25-2022 (Procedure) Raine Colmenares [facility] Start: 12-25-2022 End: 12-25-2022 ambulatory Ross Colmenares Other [employer] Other Start: 11-12-2022 End: 11-12-2022 ambulatory Ross Colmenares Other [employer] Other Start: 11-12-2022 Office outpatient ne w 45 minutes Ross Colmenares [facility] Start: 11-11-2022 End: 11-11-2022 ambulatory MD Li Lee Work Phone: [facility] Work Phone: Start: 11-11-2022 End: 11-11-2022 Patient encounter procedure MD Li Lee Work Phone: [facility] [place] [facility] Start: 10-09-2022 Rx Renewal Li Lee Work Phone: [facility] 250 DO Work Phone: Start: 07-25-2022 Office outpatient vi sit 25 minutes Li Lee Work Phone: [facility] 250 DO Work Phone: Start: 07-25-2022 ambulatory Tom Morales II Facility: Start: 07-10-2022 Rx Renewal Li Lee Work Phone: [facility] 250 DO Work Phone: Start: 01-30-2022 End: 01-31-[address] LI LEE Facility:[facility] Start: 12-19-2021 Encounter for genera l adult medical examination without abnormal findings DR TOM MORALES [facility] Start: 12-13-2021 End: 12-14-[address] LI LEE Facility:[facility] Start: 12-13-2021 End: 12-14-2021 Encounter for general adult medical examination without abnormal findings DR LI LEE Facility:[facility] Start: 11-02-2021 Office outpatient vi sit 25 minutes Li Lee Work Phone: [facility] 250 DO Work Phone: Start: 11-02-[address] LI LEE Facilit y:[facility] Start: 10-18-2021 End: 01-19-[address] LI LEE Facility:[facility] Start: 10-15-2021 End: 10-16-[address] LI LEE Facility:[facility] Start: 10-11-2021 Rx Renewal Li Lee Work Phone: [facility] 250 DO Work Phone: Start: 09-10-2021 Rx Renewal Li Lee Work Phone: [facility] 250 DO Work Phone: Start: 08-03-2021 AUDIT Li Lee Work Phone: [facility] 250 DO Work Phone: Start: 11-20-2017 Ambulatory BLAKE SIMEONNUS Facility :[id number] Start: 09-04-2017 Ambulatory BLAKE KIRNUS Facility :[id number] Start: 04-07-2017 End: 04-08-2017 Ambulatory DEFAULT PHYSICIAN Facility:[facility] Patient encounter status Li white [facility] Work Phone: Procedures Date Procedure Procedure Detail Performing Clinician Start: 07-15-2024 Urine culture Stefan acevedo MD Work Phone: Start: 06-28-2024 Plain X-ray of left hip Stefan Best MD Work Phone: Start: 06-24-2024 Urine culture Stefan acevedo MD Work Phone: Start: 06-24-2024 Antibody screen Da Lozano II Comment on above: Order Comment: Date of Surgery: [id number] Result Comment: PERF ORMED BY: [facility] [address] [facility] [place] [place] [address] PATHOLOGIST PACK PULLER RADHA DURAN M.D. Start: 2024 Cystoscopy Stefan garcia MD Work Phone: Start: 2024 Supine abdominal X-ray Stefan Best MD Work Phone: Start: 05-25-2024 Urine culture Stefan acevedo MD Work Phone: Start: 04-07-2024 Urine culture Stefan acevedo MD Work Phone: Start: 01-23-2024 Cystoscopy MD Stefan Best Work Phone: Start: 01-22-2024 CT of abdomen and pe lvis without contrast MD Stefan Best Work Phone: Start: 01-22-2024 Urine culture MD Stefan Best Work Phone: Start: 12-02-2023 Methicillin resistan t Staphylococcus aureus culture MD Stefan Best Work Phone: Start: 10-14-2023 NUCLEAR STRESS TEST MARCELA ROMI BINDU Start: 10-14-2023 Cv strs tst xers&/or rx cont ecg trcg only Tom Morales MD Work Phone: Start: 07-08-2023 History of coronary artery bypass grafting S/P CABG x 3 Tom Morales MD Work Phone: Start: 06-16-2019 Lipid 1996 panel - S paloma or Plasma Tom Morales MD Work Phone: Aortoiliofemoral vas cular bypass Li Lee Work Phone: CABG Li Lee Work Phone: Cataract surgery Li hartley Work Phone: Cataract surgery [employer] section Li hartley Work Phone: Comment on above: x3; section [employer] Comment on above: Outside Source Comme nt: Comment on above: x3; History of coronary artery bypass grafting S/P CABG x 3 Li Lee Work Phone: History of coronary artery bypass grafting [employer] History of coronary artery bypass grafting S/P CABG x 3 Tom Morales MD Work Phone: History of coronary artery bypass grafting S/P CABG x 3 Margie 1 History of coronary artery bypass grafting History of coronary artery bypass graft MD Stefan Best Work Phone: Plan of Treatment Date Care Activity Detail Author Start: 08-11-2025 End: 08-11-2025 Patient encounter procedure 08/11/2025 11:10 AM EST Office Visit [facility] [address] [place] [address] Tom Cobb DO [address] [place] [address] [facility] Start: 07-25-2025 End: 07-25-2025 Patient encounter procedure 07/25/2025 9:45 AM EST Appointment [facility] [address] [place] [address] [facility] Start: 08-11-2024 End: 08-11-2026 US.doppler Carotid arteries - bilateral Vascular US Carotid Artery Duplex Bilateral Vascular Ultrasound Routine Bruit of right carotid artery Expected: 08/11/2024 (Approximate), Expires: 08/11/2026 [facility] Service Area Work Phone: Comment on above: Expected: 08/11/2024 (Approximate), Expires: 08/11/2026 Start: 07-15-2024 Bacteria identified in Urine by Culture Urine Culture [facility] Start: 07-15-2024 Urine culture [facility] Start: 07-12-2024 Total replacement of left hip joint OR Total Hip Arthro Anterior Approach (Left) [facility] Start: 06-09-2024 End: 06-09-2024 Patient encounter procedure 06/09/2024 11:30 AM EST Office Visit [facility] [address] [place] [address] Angela Braun, PILL COATER-CARPENTER 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 [address] [facility] [address] [place] [address] [facility] Start: 2024 End: 2024 [facility] Start: 05-25-2024 Bacteria identified in Urine by Culture Urine Culture [facility] Start: 05-25-2024 Urine culture [facility] Start: 04-07-2024 Bacteria identified in Urine by Culture [facility] Start: 03-14-2024 COVID-19 Vaccine ( season) COVID-19 Vaccine ( season) [facility] Start: 03-14-2024 Influenza vaccination [facility] Start: 01-27-2024 [facility] Start: 01-26-2024 [facility] Start: 01-25-2024 [facility] Start: 01-25-2024 [facility] Start: 01-22-2024 Hospital admission [facility] Start: 01-22-2024 Referral to courseware developer [facility] Start: 01-22-2024 Referral to urologist Luis [facility] Start: 01-22-2024 [facility] Start: 01-22-2024 Dilation of Bilatera l Ureters, Via Natural or Artificial Opening Endoscopic Dilation of Bilateral Ureters, Via Natural or Artificial Opening Endoscopic [facility] Start: 01-22-2024 Fluoroscopy of Kidne ys, Ureters and Bladder using Low Osmolar Contrast Fluoroscopy of Kidneys, Ureters and Bladder using Low Osmolar Contrast [facility] Start: 12-12-2023 Patient referral [facility] Work Phone: Start: 12-02-2023 MRSA Culture MRSA Culture [facility] Start: 09-17-2023 End: 09-16-2025 NM Heart Perfusion W stress and W radionuclide IV Nuclear Stress Test Cardiac Nuclear Medicine Routine CAD, multiple vessel S/P CABG x 3 Ischemic cardiomyopathy Occlusion and stenosis of right carotid artery Shortness of breath Expected: 09/17/2023 (Approximate), Expires: 09/16/2025 [facility] Service Area Work Phone: Comment on above: Expected: 09/17/2023 (Approximate), Expires: 09/16/2025 Start: 07-23-2023 FUV, Provider: Tom Morales, Status: Pen, Time: 3:40 PM FUV, Provider: Tom Morales, Status: Pen, Time: 3:40 PM [facility] 250 DO Work Phone: Start: 07-19-2023 Glaucoma screening Diabetes: R etinopathy Screening [facility] Start: 03-14-2023 COVID-19 Vaccine () COVID-19 Vaccine () [facility] Start: 03-14-2023 Influenza vaccination Influenza Vacc ine (#1) [facility] Start: 11-11-2022 X-ray of lumbar spin e, four views XR lumbar spine AP/LAT/FLX/EXT [facility] Start: 11-11-2022 Plain X-ray of left hip XR hip LT min 2V(w/wo pelvis)* [facility] Start: 11-11-2022 XR Hip - left 2 Views F [facility] Start: 10-16-2022 Medicare Annual Well ness Visit Medicare Annual Wellness Visit (AWV) [facility] Start: 07-25-2022 FUV, Provider: Tom Morales, Status: Pen, Time: 3:30 PM FUV, Provider: Tom Morales, Status: Pen, Time: 3:30 PM [facility] [address] DO Work Phone: Start: 04-19-2022 FUV, Provider: Tom Morales, Status: Pen, Time: 3:20 PM FUV, Provider: Tom Morales, Status: Pen, Time: 3:20 PM [facility] 250 DO Work Phone: Start: 11-02-2021 FUV, Provider: Tom Morales, Status: Pen, Time: 1:15 PM FUV, Provider: Tom Morales, Status: Pen, Time: 1:15 PM [facility] [address] DO Work Phone: Start: 06-16-2020 Lipid panel Lipid Panel [facility] Start: 2020 RSV High Risk: (Elde rly (60+) or Population) (1 - 1-dose 75+ series) RSV High Risk: (Elderly (60+) or Population) (1 - 1-dose 75+ series) [facility] Start: 09-15-2019 Hemoglobin A1c measurement Diabetes: Hemoglobin A1C [facility] Start: 1995 Zoster Vaccines (1 of 2) Zoster Vacc alli (1 of 2) [facility] Start: 1967 DTaP/Tdap/Td Vaccine s (1 - Tdap) DTaP/Tdap/Td Vaccines (1 - Tdap) [facility] Start: 1964 Urine screening for protein Diabetes: Urine Protein Screening [facility] Start: 1963 Hepatitis C screening Hepatitis C [facility] Start: 1955 Diabetic foot examination Diabetes: Foot Exam [facility] Start: 1945 Medicare Annual Well ness Visit Medicare Annual Wellness Visit (AWV) [facility] Start: 1945 Screening for osteoporosis Bone Density Scan [facility] Start: 1945 Urine screening for protein Diabetes: Urine Protein Screening [facility] Bacteria identified in Urine by Culture [facility] Cotinine [Mass/volum e] in Serum or Plasma [facility] Immunofixation for Urine Fir [facility] Nicotine [Mass/volum e] in Serum or Plasma [facility] Patient Education [facility] Work Phone: Patient referral [facility] Work Phone: Renal function 2000 panel - Serum or Plasma [facility] Renal function 1999 panel - Serum or Plasma [facility] Renal function 1999 panel - Serum or Plasma [facility] Urine culture [facility] US Kidney - bilateral [facility] Immunizations Immunization Date Immunization Notes Care Provider [facility] 07-03-2022 Fluad Quadrivalent 0 .5 ML Intramuscular Prefilled Syringe Li Lee Work Phone: [facility] elisa 250 DO Work Phone: 07-03-2022 influenza virus vacc ine, unspecified formulation Maxine Llanes [facility] 07-03-2022 influenza, injectabl e, quadrivalent, contains preservative Tom Morales MD Work Phone: [facility] Work Phone: 06-17-2022 Pfizer COVID-19 Vac Bivalent 30 MCG/0.3ML Intramuscular Suspension Li Lee Work Phone: [facility] Comment on above: Result Comment: 2022: [id number] 04-13-2021 Pfizer-BioNTech COVI D-19 Vacc 30 MCG/0.3ML Intramuscular Suspension Li Lee Work Phone: [facility] Comment on above: Result Comment: 2022: [id number] 08-30-2020 Pfizer-BioNTech COVI D-19 Vacc 30 MCG/0.3ML Intramuscular Suspension Li Ruizight Work Phone: [facility] Comment on above: Result Comment: 2022: [id number] 08-09-2020 Pfizer-BioNTech COVI D-19 Vacc 30 MCG/0.3ML Intramuscular Suspension Li Ruizight Work Phone: [facility] Comment on above: Result Comment: 2022: [id number] 07-01-2019 influenza virus vacc ine, unspecified formulation Maxine Llanes [facility] 07-01-2019 influenza, injectabl e, quadrivalent, contains preservative Li Lee Work Phone: [facility] yoonew DO Work Phone: 07-14-2018 influenza virus vacc ine, unspecified formulation Li Lee Work Phone: [facility] 04-16-2018 influenza virus vacc ine, unspecified formulation Maxine Llanes [facility] 04-16-2018 pneumococcal polysaccharide vaccine, 23 valent Li Lee Work Phone: [facility] 04-13-2018 influenza virus vacc ine, unspecified formulation Li Lee Work Phone: [facility] 250 DO Work Phone: 04-13-2018 pneumococcal conjuga te vaccine, 13 valent Li Lee Work Phone: [facility] 250 DO Work Phone: 05-16-2017 influenza virus vacc ine, unspecified formulation Maxine Llanes [facility] 05-12-2017 influenza, high dose seasonal, preservative-free Li Lee Work Phone: [facility] 250 DO Work Phone: 10-30-2016 pneumococcal conjuga te vaccine, 13 valent Li Lee Work Phone: [facility] 10-12-2016 pneumococcal polysaccharide vaccine, 23 valent Li Lee Work Phone: [place] [address] DO Work Phone: 07-14-2011 influenza virus vacc ine, unspecified formulation Li Lee Work Phone: [place] [address] DO Work Phone: Payers Date Payer Category Payer Self-pay [id number] 2023 Medicare [id number] 2022 Medicare supplementa l policy (as second payer) [facility] [id number] 2022 Unknown 2010 Medicare [id number]. [id number] 2010 Medicare [id number] 2.16.840.1.269810.19 1959 Medicare [id number] 1959 Self-pay [id number] 1959 Unknown [id number] 1945 Unknown [id number] 2.16.840.1.490219.3.579. 2.593 1945 Unknown [id number] 2.16.840.1.821829.3.579. 2.593 1945 Unknown [id number] 2.16.840.1.968161.3.579. 2.593 1945 Unknown [id number] 2.16.840.1.058089.3.579. 2.593 1945 Unknown [id number] 2.16.840.1.924911.3.579. 2.593 1945 Unknown [id number] 2.16.840.1.440159.3.579. 2.356 1945 Unknown [id number] 2.16.840.1.768547.3.579. 2.356 1945 Unknown [id number] 2.16.840.1.514084.3.579. 2.727 1945 Unknown [id number] 2.16.840.1.853727.3.579. 2.727 1945 Unknown [id number] 2.16.840.1.313400.3.579. 2.727 1945 Unknown [id number] 2.16.840.1.984917.3.579. 2.727 1945 Unknown [id number] 2.16.840.1.778894.3.579. 2.727 1945 Unknown [id number] 2.16.840.1.639422.3.579. 2.727 1945 Unknown [id number] 2.16.840.1.814113.3.579. 2. 1945 Unknown [id number] 2.16.840.1.612062.3.579. 2 1945 Unknown [id number] 2.16.840.1.281673.3.579. 2. 1945 Unknown [id number] 2.16.840.1.905695.3.579. 2 1945 Unknown [id number] 2.16.840.1.666297.3.579. 2 1945 Unknown [id number] 2.16.840.1.201825.3.579. 2 1945 Unknown [id number] 2.16.840.1.150700.3.579. 2 1945 Unknown [id number] 2.16.840.1.642070.3.579. 2 1945 Unknown [id number] 2.16.840.1.778513.3.579. 2 1945 Unknown [id number] 2.16.840.1.420619.3.579. 2 1945 Unknown [id number] 2.16840.1.702169.3.579. 2 1945 Unknown [id number] 2.16.840.1.609267.3.579. 2 1945 Unknown [id number] 2.16.840.1.168638.3.579. 2 1945 Unknown [id number] 2.16.840.1.912688.3.579. 2 1945 Unknown [id number] 2.16.840.1.637602.3.579. 2.1246 1945 Unknown [id number] 2.16.840.1.280010.3.579. 2.1246 1945 Unknown [id number] 2.16.840.1.373778.3.579. 2.1246 1945 Unknown [id number] 2.16.840.1.978210.3.579. 2.1246 1945 Unknown [id number] 2.16.840.1.893745.3.579. 2.124 1945 Unknown [id number] 2.16.840.1.350301.3.579. 2.727 1945 Unknown [id number] 2.16.840.1.986739.3.579. 2.1244 1945 Unknown [id number] 2.16.840.1.850991.3.579. 2.1244 Medicare [id number] Unknown [id number] 2.16.840.1.950402.3.579. 2.531 Unknown [id number] 2.16.840.1.228835.3.579. 2.531 Unknown [id number] 2.16.840.1.523717.3.579. 2.531 Unknown [id number] 2.16.840.1.368484.3.579. 2.531 Unknown [id number] 2.16.840.1.165567.3.579. 2.531 Unknown [id number] 2.16.840.1.090743.3.579. 2.531 Unknown [id number] 2.16.840.1.260629.3.579. 2.531 Unknown [id number] 2.16.840.1.714972.3.579. 2.531 Unknown [id number] 2.16.840.1.041026.3.579. 2.531 Unknown [id number] 2.16.840.1.374556.3.579. 2.531 Social History Date Type Detail Facility Start: 07-08-2023 End: 08-11-2024 Former smoker [facility] [address] DO Work Phone: Comment on above: Quit 17 years ago; Quit 25+ years ago; coffee occasionally soda, tea; Start: 08-06-2018 End: 06-24-2024 Tobacco smoking status NHIS Ex-smoker (finding) [facility] Comment on above: quit age 50 Start: 1945 Sex Assigned At Female F [facility] Start: 07-08-2023 End: 08-11-2024 Sex Assigned At [facility] Tobacco smoking status Never [facility] Comment on above: quit age 50 End: 07-14-1999 History of tobacco use Current smoker [facility] Work Phone: End: 07-14-1999 History of tobacco use Cigarette Smoker [facility] Work Phone: Start: 07-08-2023 End: 08-11-2024 Tobacco use and exposure Smokeless tobacco non-user [facility] Work Phone: Start: 09-17-2023 End: 08-11-2024 Alcohol intake Current drinker of alcohol (finding) [facility] Work Phone: Start: 07-08-2023 Alcohol Comment occasional [facility] Work Phone: Start: 1945 Sex Assigned At Not on file [facility] Work Phone: Start: 09-07-2023 End: 08-11-2024 Exposure to SARS-CoV-2 (event) Not sure [facility] Start: 08-13-2023 Tobacco smoking stat us VAIS Never smoked tobacco (finding) [facility] Start: 05-22-2024 End: 09-13-2024 Sex Female (finding) [facility] Medical Equipment Procedure Code Equipment Code Equipment Origin al Text Equipment Identifier Dates Cystoscopy, with ureteral calculus manipulation and stent placement Polymeric ureteral stent [id number] FDA Start: 01-23-2024 Cystoscopy, with ureteral calculus manipulation and stent placement Polymeric ureteral stent [id number] FDA Start: 2024 AAA repair with graft GRAFT SUSAN SHIELD [id number] FDA Start: 07-20-2018 AAA repair with graft IR STENT S MART 9 X 40 120 CM FDA Start: 07-20-2018 AAA repair with graft GRAFT SUSAN SHIELD [id number] FDA Start: 07-20-2018 AAA repair with graft IR STENT S MART 9 X 40 120 CM FDA Start: 07-20-2018 AAA repair with graft GRAFT SUSAN SHIELD [id number] FDA Start: 07-20-2018 AAA repair with graft IR STENT S MART 9 X 40 120 CM FDA Start: 07-20-2018 AAA repair with graft GRAFT SUSAN SHIELD [id number] FDA Start: 07-20-2018 AAA repair with graft IR STENT S MART 9 X 40 120 CM FDA Start: 07-20-2018 AAA repair with graft GRAFT SUSAN SHIELD [id number] FDA Start: 07-20-2018 AAA repair with graft IR STENT S MART 9 X 40 120 CM FDA Start: 07-20-2018 AAA repair with graft GRAFT SUSAN SHIELD [id number] FDA Start: 07-20-2018 AAA repair with graft IR STENT S MART 9 X 40 120 CM FDA Start: 07-20-2018 AAA repair with graft GRAFT SUSAN SHIELD [id number] FDA Start: 07-20-2018 AAA repair with graft IR STENT S MART 9 X 40 120 CM FDA Start: 07-20-2018 AAA repair with graft GRAFT SUSAN SHIELD [id number] FDA Start: 07-20-2018 AAA repair with graft IR STENT S MART 9 X 40 120 CM FDA Start: 07-20-2018 AAA repair with graft GRAFT SUSAN SHIELD [id number] FDA Start: 07-20-2018 AAA repair with graft IR STENT S MART 9 X 40 120 CM FDA Start: 07-20-2018 AAA repair with graft GRAFT SUSAN SHIELD [id number] FDA Start: 07-20-2018 AAA repair with graft IR STENT S MART 9 X 40 120 CM FDA Start: 07-20-2018 AAA repair with graft GRAFT SUSAN SHIELD [id number] FDA Start: 07-20-2018 AAA repair with graft IR STENT S MART 9 X 40 120 CM FDA Start: 07-20-2018 AAA repair with graft GRAFT SUSAN SHIELD [id number] FDA Start: 07-20-2018 AAA repair with graft IR STENT S MART 9 X 40 120 CM FDA Start: 07-20-2018 AAA repair with graft GRAFT SUSAN SHIELD [id number] FDA Start: 07-20-2018 AAA repair with graft IR STENT S MART 9 X 40 120 CM FDA Start: 07-20-2018 AAA repair with graft GRAFT SUSAN SHIELD [id number] FDA Start: 07-20-2018 AAA repair with graft IR STENT S MART 9 X 40 120 CM FDA Start: 07-20-2018 AAA repair with graft GRAFT SUSAN SHIELD [id number] FDA Start: 07-20-2018 AAA repair with graft IR STENT S MART 9 X 40 120 CM FDA Start: 07-20-2018 AAA repair with graft GRAFT SUSAN SHIELD [id number] FDA Start: 07-20-2018 AAA repair with graft IR STENT S MART 9 X 40 120 CM FDA Start: 07-20-2018 AAA repair with graft GRAFT SUSAN SHIELD [id number] FDA Start: 07-20-2018 AAA repair with graft IR STENT S MART 9 X 40 120 CM FDA Start: [...] 7 X 24 135CM FDA Start: 09-11-2017 [facility] Prescription, See Instructions, 100 strip(s), 3, True Metrix Test Strips Check AC&HS, [facility], Supply, 140.6, cm, 02/10/23 11:29:00 EDT, Height/Length Dosing, 79.2, kg, 02/10/23 11:29:00 EDT, Weight Dosing Start: 02-10-2023 [facility] Prescription, See Instructions, 100 strip(s), 3, [...] 7 X 24 135CM FDA Start: 09-11-2017 Goals Date Patient Goal Desired Activity /State Functional Status Date Assessment Result Facility 02-26-2024 Functional Status No [facility] 02-26-2024 Functional Status [facility] 02-10-2024 Functional Status N/A [facility] 01-25-2024 Functional status Patient at Baseline [facility] Work Phone: Mental Status Date Assessment Result Facility 01-25-2024 Cognitive function Cognitive Sta tus Patient at Baseline [facility] Work Phone: Clinical Notes 11-11-2016 to 08-12-2024 Assessment & Plan Note - Angela Braun APRN-CARPENTER 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 - 08/12/2024 9:45 AM ESTAssessment & Plan Note - SHAWANDA Parham - 08/12/2024 9:45 AM ESTPatient Instructions Note Date & Type Note Facility 08-12-2024 Evaluation + Plan note Associated Problem(s): BMI 33.0-33.9,adult Reviewed the merits of healthy lifestyle choices on overall cardiovascular health. 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 Chanel retired. During January 2024 hospitalization for hydronephrosis she had a CT of the abdomen that was unremarkable in regards to aortic aneurysm. [facility] Work Phone: 08-12-2024 Miscellaneous Notes Associated Problem(s): BMI 33.0-33.9,adult Reviewed the merits of healthy lifestyle choices on overall cardiovascular health. 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 Chanel retired. During January 2024 hospitalization for hydronephrosis she had a CT of the abdomen that was unremarkable in regards to aortic aneurysm. Associated Problem(s): Ischemic cardiomyopathy Ischemic cardiomyopathy heart failure borderline ejection fraction 48% October 2023 MPI Currently no SGLT2 due to acute kidney injury during hospitalization 2023 Associated Problem(s): Hyperlipidemia Moderate intensity statin Associated Problem(s): HTN (hypertension) Asymptomatic hypotension noted in the office today. Associated Problem(s): CAD, multiple vessel November 2016 CABG x 15 June 2017 cardiac cath Distal/mid RCA PCI/GURU x 2 HACKETT-LAD was patent Sequential saphenous vein graft from PDA-OM was occluded LVEF 45% October 2023 MPI no ischemia, no infarct. EF 48%. Current daily activity less than 4 METS. documented in this encounter [facility] Work Phone: 08-12-2024 Evaluation + Plan note Associated Problem(s): Ischemic cardiomyopathy Ischemic cardiomyopathy heart failure borderline ejection fraction 48% October 2023 MPI Currently no SGLT2 due to acute kidney injury during hospitalization 2023 [facility] Work Phone: 08-12-2024 Evaluation + Plan note Associated Problem(s): Hyperlipidemia Moderate intensity statin [facility] Work Phone: 08-12-2024 Evaluation + Plan note Associated Problem(s): HTN (hypertension) Asymptomatic hypotension noted in the office today. [facility] Work Phone: 08-12-2024 Evaluation + Plan note Associated Problem(s): CAD, multiple vessel November 2016 CABG x 15 June 2017 cardiac cath Distal/mid RCA PCI/GURU x 2 HACKETT-LAD was patent Sequential saphenous vein graft from PDA-OM was occluded LVEF 45% October 2023 MPI no ischemia, no infarct. EF 48%. Current daily activity less than 4 METS. [facility] Work Phone: 08-11-2024 History of Presen t illness Narrative Chief Complaint Seem to be doing okay Reason for Visit 9-month follow-up Patient presents to the office today for outpatient follow-up for coronary artery disease and secondary prevention. Last evaluated in clinic by Dr. Cat September 2023. At that time, she was requesting cardiac restratification prior to orthopedic procedure. A subsequent perfusion study showed no evidence of ischemia or infarct. She reports not having the hip replacement due to elevated hemoglobin A1c but may be planning to complete later this year. Presents today in wheelchair for ease of transport, utilizes a walker at home. Accompanied by spouse January 2024 hospitalized due to bilateral hydronephrosis and reports getting stents put in my kidney . Her current diuretic is managed by nephrology. History of Present Illness Patient is a very pleasant 79-year-old female who presents to the office with no voiced cardiovascular complaints. Her hip pain pretty much limits her physical activity but she does ambulate with a walker at home. Her prior bypass symptom she reports being completely asymptomatic. She denies any dyspnea on exertion, no orthopnea or PND. She denies any type of claudication symptoms. Patient reports that overall has no complaint(s) of chest pain, chest pressure/discomfort, claudication, dyspnea, exertional chest pressure/discomfort, fatigue, irregular heart beat, and lower extremity edema Daily activity: Less than 4 METS Denies any change in exercise capacity or functional tolerance since last office visit. The importance of secondary prevention reviewed: HTN: Asymptomatic hypotension noted in office HLD: Treated, reports labs through PCP. DM: Suboptimal control Smoker: Denies BMI: Reviewed the merits of healthy lifestyle choices on overall cardiovascular health. Review of Systems Cardiovascular: Negative for chest pain, dyspnea on exertion, irregular heartbeat, leg swelling, near-syncope, orthopnea, palpitations, paroxysmal nocturnal dyspnea and syncope. Visit Vitals BP 102/60 (BP Location: Right arm, Patient Position: Sitting) Pulse 54 Ht 1.499 m (4' 11 ) Wt 74.8 kg (165 lb) BMI 33.33 kg/m Smoking Status Former BSA 1.76 m Physical Exam Vitals and nursing note reviewed. HENT: Head: Normocephalic. Cardiovascular: Rate and Rhythm: Normal rate and regular rhythm. Heart sounds: Normal heart sounds. Pulmonary: Effort: Pulmonary effort is normal. Breath sounds: Normal breath sounds. Abdominal: Palpations: Abdomen is soft. Musculoskeletal: Right lower leg: No edema. Left lower leg: No edema. Skin: General: Skin is warm and dry. Neurological: General: No focal deficit present. Mental Status: She is alert. Psychiatric: Mood and Affect: Mood normal. Behavior: Behavior normal. Allergies Allergen Reactions Atorvastatin Myalgia Williams Inhibitors Other Spironolactone Other Psspjpc-Cbk-Lsb Reductase Inhibitors Myalgia Current Outpatient Medications Medication Instructions allopurinol (Zyloprim) 300 mg tablet 1 tablet, Daily aspirin 81 mg, oral, Daily Basaglar KwikPen U-100 Insulin 50 Units, Nightly carvedilol (COREG) 25 mg, oral, 2 times daily cholecalciferol (VITAMIN D-3) 5,000 Units, Every other day clopidogrel (PLAVIX) 75 mg, oral, Daily ferrous sulfate 325 mg, Every other day furosemide (LASIX) 40 mg, oral, Daily gabapentin (Neurontin) 300 mg capsule 1 capsule, 2 times daily lisinopril 5 mg tablet 1 tablet, Daily (629) NovoLOG Flexpen U-100 Insulin 100 unit/mL (3 mL) pen INJECT 20 UNITS VIA SUBCUTANEOUS ROUTE NEEDED PER SLIDING SCALE oxybutynin XL (DITROPAN-XL) 15 mg, Daily rosuvastatin (CRESTOR) 5 mg, oral, Nightly Assessment: CAD, multiple vessel November 2016 CABG x 15 June 2017 cardiac cath Distal/mid RCA PCI/GURU x 2 HACKETT-LAD was patent Sequential saphenous vein graft from PDA-OM was occluded LVEF 45% October 2023 MPI no ischemia, no infarct. EF 48%. Current daily activity less than 4 METS. HTN (hypertension) Asymptomatic hypotension noted in the office today. 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 Chanel retired. During January 2024 hospitalization for hydronephrosis she had a CT of the abdomen that was unremarkable in regards to aortic aneurysm. Type 2 diabetes mellitus (Multi) On WILLIAMS/statin Recent hemoglobin A1c 8.2 BMI 33.0-33.9,adult Reviewed the merits of healthy lifestyle choices on overall cardiovascular health. Plan: Through informed decision making process incorporating patients unique circumstances, the following treatment plan will be initiated: 1. Prescription drug management of cardiovascular medication for efficacy, adherence to treatment, side effect assessment and polypharmacy. Current treatment clinically warranted and to continue without modifications. 2. B/L Carotid USN (ALEIDA 50-69%) 3. Return for follow-up; in the interim, contact the office if new symptoms arise. Dr. Cobb annual unless abnormal testing Angela Braun MSN, PILL COATER-CARPENTER 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, PMHNP-[facility] [place], [place] Please excuse any errors in grammar or translation related to this dictation. Voice recognition software was utilized to prepare this document. documented in this encounter [facility] Work Phone: 08-11-2024 Instructions SHAWANDA Parham - 08/11/2024 3:00 PM EST Please bring all medicines, vitamins, and herbal supplements with you when you come to the office. Prescriptions will not be filled unless you are compliant with your follow up appointments or have a follow up appointment scheduled as per instruction of your physician. Refills should be requested at the time of your visit. PLAN: Through informed decision making process incorporating patients unique circumstances, the following treatment plan will be initiated: 1. Prescription drug management of cardiovascular medication for efficacy, adherence to treatment, side effect assessment and polypharmacy. Current treatment clinically warranted and to continue without modifications. 2. B/L Carotid USN (ALEIDA 50-69%) 3. Return for follow-up; in the interim, contact the office if new symptoms arise. Dr. Cobb annual unless abnormal testing documented in this encounter [facility] Work Phone: 06-28-2024 Evaluation note Diagnosis Onset Date Resolution Primary osteoarthritis of left hip acute June 28, 2024 10:19am Heart failure, unspecified acute July 01, 2024 10:55am Primary osteoarthritis of left hip acute July 01, 2024 10:55am Type 2 diabetes mellitus with hyperglycemia acute June 10:55am Anemia of renal disease acute J anuary 2024 10:50am CKD (chronic kidney disease) stage 4, GFR 15-29 ml/min acute August 03, 2024 10:50am Gout acute August 03, 2024 10:50am Hyperlipidemia acute August 032024 10:50am Hypertensive chronic kidney disease with stage 1 through stage 4 chronic ki acute 2024 10:50am Proteinuria acute August 03, 2024 10:50am Secondary hyperparathyroidism acute July 10:50am Type 2 diabetes mellitus with diabetic chronic kidney disease acute August 03, 2024 10:50am [facility] Work Phone: 1([phone]) 865-446911-07-2024 Evaluation note* Diagnosis Onset Date Resolution Status Admit Date Anemia of renal disease acute N ovember 2023 9:55am CKD (chronic kidney disease) stage 4, GFR 15-29 ml/min acute Novemb er 2023 9:55am Preoperative examination acute May 20, 2024 9:55am Primary osteoarthritis of le ft hip acute May 20 9:55am UTI (urinary tract infection) acute May 25, 2024 10:32am Primary osteoarthritis of le ft hip acute June 28 10:19am Heart failure, unspecified acute July 01, 2024 10:55am Primary osteoarthritis of le ft hip acute July 01 10:55am Type 2 diabetes mellitus wit h hyperglycemia acute July 01 10:55am [facility] Work Phone: 1([phone]) 829-484211-07-2024 Evaluation note* Diagnosis Onset Date Resolution Status Admit Date Anemia of renal disease acute N ovember 2023 9:55am CKD (chronic kidney disease) stage 4, GFR 15-29 ml/min acute May 9:55am Preoperative examination acute May 20, 2024 9:55am Primary osteoarthritis of left hip a cute May 20, 2024 9:55am UTI (urinary tract infection) acute May 25, 2024 10:32am Primary osteoarthritis of left hip a cute June 28, 2024 10:19am Heart failure, unspecified acute July 01, 2024 10:55am Primary osteoarthritis of left hip a cute July 01, 2024 10:55am Type 2 diabetes mellitus wit h hyperglycemia acute July 01 10:55am Anemia of renal disease acute J anuary 2024 10:50am CKD (chronic kidney disease) stage 4, GFR 15-29 ml/min acute July 10:50am Gout acute August 03, 2024 10:50am Hyperlipidemia acute August 032024 10:50am Hypertensive chronic kidney disease with stage 1 through stage 4 chronic ki acute August 03 10:50am Proteinuria acute August 03, 2024 10:50am Secondary hyperparathyroidism acute August 03, 2024 10:50am Type 2 diabetes mellitus wit h diabetic chronic kidney disease acute August 03, 2024 10:50am [facility] Work Phone: 1(348) 188-234308-23-2024 Evaluation note* Diagnosis Onset Date Resolution Status Admit Date Anemia of renal disease acute A ugust 2023 1:13pm CKD (chronic kidney disease) stage 4, GFR 15-29 ml/min acute March 05, 2024 1:13pm Primary osteoarthritis of le ft hip acute March 05 1:13pm Sepsis due to urinary tract infection acute March 05 1:13pm Anemia of renal disease acute epte2023 1:52pm CKD (chronic kidney disease) stage 4, GFR 15-29 ml/min acute 2023 1:52pm Gout acute March 22, 2024 1:52pm Hyperlipidemia acute March 22, 2024 1:52pm Hypertensive chronic kidney disease with stage 1 through stage 4 chronic ki acute March 1:52pm Proteinuria acute March 1:52pm Secondary hyperparathyroidism acute March 22, 2024 1:52pm Type 2 diabetes mellitus wit h diabetic chronic kidney disease acute March 22, 2024 1:52pm UTI (urinary tract infection) acute April 07, 2024 10:09am [facility] Work Phone: 1(414) 941-450208-23-2024 Evaluation note* Diagnosis Onset Date Resolution Status Admit Date Anemia of renal disease acute A ugust 2023 1:13pm CKD (chronic kidney disease) stage 4, GFR 15-29 ml/min acute March 05, 2024 1:13pm Primary osteoarthritis of le ft hip acute March 05 1:13pm Sepsis due to urinary tract infection acute March 05 1:13pm Anemia of renal disease acute S eptemb2023 1:52pm CKD (chronic kidney disease) stage 4, GFR 15-29 ml/min acute 2023 1:52pm Gout acute March 22, 2024 1:52pm Hyperlipidemia acute March 22, 2024 1:52pm Hypertensive chronic kidney disease with stage 1 through stage 4 chronic ki acute March 1:52pm Proteinuria acute March 1:52pm Secondary hyperparathyroidism acute March 22, 2024 1:52pm Type 2 diabetes mellitus wit h diabetic chronic kidney disease acute March 22, 2024 1:52pm UTI (urinary tract infection) acute April 07, 2024 10:09am UTI (urinary tract infection) acute May 25, 2024 10:32am [facility] Work Phone: 1(248) 419-964108-22-2024 NoteMicrobiology PROCEDURE: Blood Culture Charcoal [R1] SOURCE: Blood BODY SITE: Hand L COLLECTED DATE/TIME: 02/26/2024 19:07 EDT RECEIVED DATE/TIME: 02/26/2024 20:12 EDT START DATE/TIME: 02/26/2024 20:12 EDT FREE TEXT SOURCE: KADE MARLOW, Allison Pittman MD FINAL REPORTS Final Report [] Verified Date/Time: 03/04/2024 21:00 EDT No growth at 7 days. Performing Locations R1: This test was performed at: [facility], [address] [place] [address], [address] [place] [address], [facility] Hospital[facility] on above:Performed By: #### [id number] #### [facility] [address] [place] [address] [id number] NoteMicrobiology PROCEDURE: Blood Culture Charcoal [R1] SOURCE: Blood BODY SITE: Hand R COLLECTED DATE/TIME: 02/26/2024 19:07 EDT RECEIVED DATE/TIME: 02/26/2024 20:12 EDT START DATE/TIME: 02/26/2024 20:12 EDT FREE TEXT SOURCE: KADE MARLOW, Allison Pittman MD FINAL REPORTS Final Report [] Verified Date/Time: 03/04/2024 21:00 EDT No growth at 7 days. Performing Locations R1: This test was performed at: [facility], [address] [place] [address], [id number] , [place], VahdctC[facility] HospitalComment on above:Performed By: #### [id number] #### [facility] [address] [place] [address] [id number] Hospital Discharge instructions Patient Education 02/29/2024 14:58:25 Acute Kidney Injury, Adult Acute Kidney Injury, Adult Acute kidney injury is a sudden worsening of kidney function. The kidneys are a pair of organs thatdo many important jobs in the body, including: Make urine. Make hormones. Keep the right amount of fluids and chemicals in the body. This condition ranges from mild to severe. Over time, it may develop into long- lasting (chronic) kidney disease. Finding it and treating it early may keep it from becoming a long-lasting disease. What are the causes? Common causes of this condition include: A problem with blood flow to the kidneys. This may be caused by: ?Low blood pressure or shock. ?Blood loss. ?Heart and blood vessel disease. ?Severe valdes. ?Liver disease. Direct damage to the kidneys. This may be caused by: ?Certain medicines. ?A kidney infection. ?Poisoning. ?Being around or in contact with toxic substances. ?A wound from surgery. ?A hard, direct hit to the kidney area. A sudden block in urine flow. This may be caused by: ?Cancer. ?Kidney stones. ?An enlarged prostate. What increases the risk? Being older than age 65. Being female. Being in the hospital. This is especially true if you are very sick. Having certain conditions, such as: ?Long-lasting kidney or liver disease. ?Diabetes. ?Heart disease and heart failure. ?Lung disease. What are the signs or symptoms? This condition may not cause symptoms until it becomes severe. Symptoms can include: Feeling very tired or having trouble staying awake. Nausea or vomiting. Swelling (edema) of the face, legs, ankles, or feet. Pain in the belly or pain along the side of your stomach (flank). Urine changes, such as: ?Making little or no urine. ?Passing urine with a weak flow. Muscle twitches and cramps, most often in the legs. Confusion or trouble concentrating. Not feeling the urge to eat. Fever. How is this diagnosed? This condition may be diagnosed based on: Your symptoms. Your medical history. A physical exam. You may have other tests, such as: Blood tests. Urine tests. Imaging tests. A kidney biopsy. This involves removing a sample of kidney tissue to be looked at under a microscope. How is this treated? Treatment depends on the cause and how severe the condition is. In mild cases, treatment may not beneeded. The kidneys may heal on their own. In severe cases, treatment may include: Treating the cause of the kidney injury. This may mean that you have to change your medicines or the doses you take. Getting fluids through an IV tube. Having a small, thin tube (catheter) put in. This tube will drain urine and prevent blockages. Trying to keep problems from starting. This may mean not using certain medicines or not having tests done that could cause more kidney injury. In some cases, these treatments are also needed: Dialysis or continuous renal replacement therapy (CRRT). This treatment uses a machine to do the job of the kidneys. Surgery. This may be done to repair a damaged kidney. It could also be done to remove a blockage inthe urinary tract. Follow these instructions at home: Medicines Take bhlo-awz-kadiefh and prescription medicines only as told by your health care provider. Do not take any new medicines unless approved by your health care provider. Many medicines can makekidney damage worse. Do not take any vitamin or mineral supplements unless approved by your health care provider. Some of these can make kidney damage worse. Lifestyle Make changes to your diet as told by your health care provider. You may need to eat less protein. Get to, and stay at, a healthy weight. If you need help, ask your health care provider. Start or keep up an exercise plan. Exercise at least 30 minutes a day, 5 days a week. Do not smoke or use any products that contain nicotine or tobacco. If you need help quitting, ask your health care provider. General instructions Keep track of your blood pressure. Tell your health care provider if you notice any changes. Keep your vaccines up to date. Ask your health care provider which vaccines you need. Keep all follow-up visits. Where to find more information [place] [employer]: www.aakp.org National Kidney Foundation: www.kidney.org [place] [employer]: www.akfinc.org [employer]: ?Life[employer]: www.lifeoptions.org ?[employer]idney [employer]: www.kidneyschool.org Contact a health care provider if: Your symptoms get worse. You have new symptoms such as: ?Headaches. ?Skin that is darker or cableway operator than normal. ?Easy bruising. ?Itchiness. ?Hiccups. ?Lack of menstrual periods. You have a fever. Get help right away if: You have symptoms of worsening kidney disease, such as: ?Chest pain. ?Shortness of breath. ?Seizures. ?Confusion or trouble thinking. ?Belly or back pain. You have pain or bleeding when you pass urine. You are making little or no urine. These symptoms may be an emergency. Get help right away. Call 911. Do not wait to see if the symptoms will go away. Do not drive yourself to the hospital. Summary Acute kidney injury is a sudden worsening of kidney function. This condition can be caused by problems with blood flow to the kidneys, damage to the kidneys, or a sudden block in urine flow. This condition may not cause symptoms until it becomes severe. Acute kidney injury can be diagnosed with blood tests, urine tests, imaging tests, and other tests. Treatment depends on the cause and how severe the condition is. This information is not intended to replace advice given to you by your health care provider. Make sure you discuss any questions you have with your health care provider. Document Revised: 10/07/2022 Document Reviewed: 05/09/2020 [employer] Patient Education 2022 [employer]. 02/29/2024 14:58:22 Sepsis, Diagnosis, Adult Sepsis, Diagnosis, Adult Sepsis is a serious bodily reaction to an infection. The infection that triggers sepsis may be froma bacteria, virus, or fungus. Sepsis can result from an infection in any part of your body. Infections that commonly lead to sepsis include skin, lung, and urinary tract infections. Sepsis is a medical emergency that must be treated right away in a hospital. In severe cases, it can lead to septic shock. Septic shock can weaken your heart and cause your blood pressure to drop. This can cause your central nervous system and your body's organs to stop working. What are the causes? This condition is caused by a severe reaction to infections from bacteria, viruses, or fungus. The germs that most often lead to sepsis include: Escherichia coli (E. coli) bacteria. Staphylococcus aureus (staph) bacteria. Some types of Streptococcus bacteria. The most common infections affect these organs: The lung (pneumonia). The kidneys or bladder (urinary tract infection). The skin (cellulitis). The bowel, gallbladder, or pancreas. What increases the risk? You are more likely to develop this condition if: Your body's disease-fighting system (immune system) is weakened. You are age 65 or older. You are male. You had surgery or you have been hospitalized. You have these devices inserted into your body: ?A small, thin tube (catheter). ?IV line. ?Breathing tube. ?Drainage tube. You are not getting enough nutrients from food (malnourished). You have a chronic disease, such as cancer, lung disease, kidney disease, or diabetes. What are the signs or symptoms? Symptoms of this condition may include: Fever. Chills or feeling very cold. Confusion or anxiety. Fatigue. Muscle aches. Shortness of breath or rapid breathing (hyperventilation). Nausea and vomiting. Urinating much less than usual. Fast heart rate. Changes in skin color. Your skin may look blotchy, pale, or blue. Cool, clammy, or sweaty skin. Skin rash. Other symptoms depend on the source of your infection. How is this diagnosed? This condition is diagnosed based on your symptoms, medical history, and physical exam. Other testsmay also be done to find out the cause of the infection and how severe the sepsis is. Tests may include: Blood tests. Urine tests. Swabs from other areas of your body that may have an infection. These samples may be tested (cultured) to find out what type of bacteria is causing the infection. Chest X-ray to check for pneumonia. Other imaging tests, such as a CT scan, may also be done. Lumbar puncture. This removes a small amount of the fluid that surrounds your brain and spinal cord. The fluid is then examined for infection. How is this treated? This condition must be treated in a hospital. Based on the cause of your infection, you may be given an antibiotic, antiviral, or antifungal medicine. You may also receive: Fluids through an IV. Oxygen and breathing assistance. Medicines to increase your blood pressure. Kidney dialysis. This process cleans your blood if your kidneys have failed. Surgery to remove infected tissue. Blood transfusion if needed. Medicine to prevent blood clots. Nutrients to correct imbalances in basic body function (metabolism). You may: ?Receive important salts and minerals (electrolytes) through an IV. ?Have your blood sugar level adjusted. Follow these instructions at home: Medicines Take ccaq-vsl-gyvgyqe and prescription medicines only as told by your health care provider. If you were prescribed an antibiotic, antiviral, or antifungal medicine, take it as told by your health care provider. Do not stop taking the medicine even if you start to feel better. General instructions If you have a catheter or other indwelling device, ask to have it removed as soon as possible. Keep all follow-up visits. This is important. Contact a health care provider if: You do not feel like you are getting better or regaining strength. You are having trouble coping with your recovery. You frequently feel tired. You feel worse or do not seem to get better after surgery. You think you may have an infection after surgery. Get help right away if: You have any symptoms of sepsis. You have difficulty breathing. You have a rapid or skipping heartbeat. You become confused or disoriented. You have a high fever. Your skin becomes blotchy, pale, or blue. You have an infection that is getting worse or not getting better. These symptoms may represent a serious problem that is an emergency. Do not wait to see if the symptoms will go away. Get medical help right away. Call your local emergency services (911 in the [place] Do not drive yourself to the hospital. Summary Sepsis is a medical emergency that requires immediate treatment in a hospital. This condition is caused by a severe reaction to infections from bacteria, viruses, or fungus. Based on the cause of your infection, you may be given an antibiotic, antiviral, or antifungal medicine. Treatment may also include IV fluids, breathing assistance, and kidney dialysis. This information is not intended to replace advice given to you by your health care provider. Make sure you discuss any questions you have with your health care provider. Document Revised: 05/14/2021 Document Reviewed: 05/14/2021 [employer] Patient Education 2022 [employer]. Follow Up Care 02/26/2024 17:29:51 With:STEFAN BEST Address: [address] [place], [place] [id number] Business (1) When:03/05/2024 13:45:00 [facility] 08-18-2024 NoteDischarge Summary Admission and Discharge Information Admit Date/Time:02/26/2024 18:07 Admitting Physician - Allison CHANCE MD Admitting Diagnoses: Discharge Order Date Discharge with Home Health - Ordered -- 02/29/24 13:39:00 EDT, [place] after 5:15pm if afebrile Discharge Diagnoses 1. Acute metabolic encephalopathy, 02/27/2024 2. Sepsis, 02/26/2024 3. Urinary tract infection, 02/26/2024 4. Acute kidney injury, 02/26/2024 5. Elevated troponin, 02/27/2024 6. Hypoglycemia, 02/28/2024 7. Generalized weakness, 02/26/2024 8. Decubitus ulcer of coccygeal region, stage 1, 02/27/2024 9. Diabetes, 02/26/2024 10. CKD stage 3b, 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, 02/27/2024 11. Pure hypercholesterolemia, 02/26/2024 12. Class 3 severe obesity with serious comorbidity in adult, 02/26/2024 13. Coronary artery disease, 02/26/2024 14. On deep vein thrombosis (DVT) prophylaxis, 02/26/2024 Procedure History Cataract surgery, section, History of coronary artery bypass grafting... Hospital Course 78-year-old female with diabetes mellitus type 2, hypertension, coronary artery disease, chronic kidney disease stage III, peripheral artery disease, urethral stricture/hydronephrosis status post stent placement presented with complaints of generalized weakness, chills, suprapubic pain. She was subsequently admitted to [facility] with acute metabolic encephalopathy secondary to sepsis secondary to E. coli urinary tract infection, acute kidney injury on chronic kidney disease secondary to ATN from sepsis and UTI, generalized weakness, elevated troponin secondary to type II non-ST segment elevation myocardial infarction and stage 1 coccyx decubitus ulcer. She was treated withIV fluid, IV ceftriaxone and as needed pain medications. Patient's overall condition improved, sepsis resolved, acute metabolic encephalopathy resolved and she participated well in physical therapy. Initially physical therapy had recommended [facility] facility placement but patient was hesitant and wanted to be discharged home with home health physical therapy. Arrangements are being made for home health physical therapy. Urine cultures isolated E. coli organism that is pansensitive. Acute kidney injury resolved and her kidney function was back to her baseline. She was seen prior to discharge and remained in an improved and stable condition for discharge and was subsequently discharged on. She will follow-up with her primary care physician accordingly. She was discharged home on oral Keflex 500 mg 3 times daily for 4 additional days. Services Consulted - Completed -- 02/26/24 23:43:13 EDT Physical Exam Vitals & Measurements T: 36.8 ?C(Axillary) HR: 80(Monitored) RR: 16 BP: 114/60 SpO2: 98% WT: 74.9 kg General: alert, no acute distress Skin: warm, dry Head: no trauma, normocephalic Neck: Trachea midline, no adenopathy, no tenderness Eye: normal conjunctiva, sclera clear ENMT: TM's clear, oral mucosa moist, no pharyngeal erythema or exudate Cardiovascular: regular rate and rhythm, normal peripheral perfusion Respiratory: Lungs CTA, respirations non labored Chest wall: no deformity. Gastrointestinal: soft, non distended, no tenderness, no guarding. Bowel intact. Back: No tenderness, Normal ROM, Normal alignment. Extremities: no deformity, no trauma Neurological: oriented x 4, LOC appropriate for age, CN II-XII intact, motor strength equal & normal bilaterally, sensation equal & normal bilaterally, speech normal Psychiatric: cooperative, affect appropriate for age, normal judgement, normal psychiatric thoughts. Tests Performed CT Head or Brain w/o Contrast XR Chest Single View Discharge Plan Patient Discharge Condition Stable Discharge Disposition Discharge To, Anticipated II - [facility] Discharged to - Home with home health Home Discharge Diet Discharge Diet(s): Calorie Controlled- 1800 Calorie Diet (02/29/24 13:38:00) Discharge Medication List Prescriptions allopurinol 300 mg Tab, 300 mg= 1 tab(s), Oral, Daily, 1 refills Basaglar KwikPen 100 units/mL subcutaneous solution, 50 unit(s), SubCutaneous, Daily, 2 refills cholecalciferol 1000 intl units oral capsule, 25 mcg= 1 cap(s), Oral, Daily, 1 refills gabapentin 300 mg Cap, 300 mg= 1 cap(s), Oral, BID, 1 refills HumaLOG 100 units/mL injectable solution, 20 unit(s), SubCutaneous, As Directed, 2 refills Keflex 500 mg Cap, 500 mg= 1 cap(s), Oral, TID Misc DME Prescription, See Instructions, 3 refills oxybutynin 10 mg ER Tab, 10 mg= 1 tab(s), Oral, Daily, Not taking potassium chloride 10 mEq ER Tab, 10 mEq= 1 tab(s), Oral, Daily, 5 refills rosuvastatin 5 mg Tab, 5 mg= 1 tab(s), Oral, Daily, 1 refills Tresiba FlexTouch 100 units/mL subcutaneous solution, 20 unit(s), SubCutaneous, As Directed, 1 refills Home aspirin 81 mg Oral EC Tab carvedilol 25 mg Tab, 25 mg= 1 tab(s), BID Colace, Oral, Daily ferrous sulfate 325 mg oral enteric coated t (more content not included)... [facility]Result Comment: Electronically Signed By: Allison CHANCE MD\.br\Date and Time Signed: 02/29/24 16:44 EDT 02-29-2024 NoteProgress Note-Nurse Report called to Vincent Delgado, marketing liaison. Discharge paperwork provided to patient and .[facility]08-18-2024 Evaluation + Plan note Extracted from: Title:Discharge Note Author:Allison CHANCE MD ate:02/29/24 Stable Discharge To, Anticipated II - [facility] Discharged to - Home with home health Home Discharge Diet(s): Calorie Controlled- 1800 Calorie Diet (02/29/24 13:38:00) Prescriptions allopurinol 300 mg Tab, 300 mg= 1 tab(s), Oral, Daily, 1 refills Basaglar KwikPen 100 units/mL subcutaneous solution, 50 unit(s), SubCutaneous, Daily, 2 refills cholecalciferol 1000 intl units oral capsule, 25 mcg= 1 cap(s), Oral, Daily, 1 refills gabapentin 300 mg Cap, 300 mg= 1 cap(s), Oral, BID, 1 refills HumaLOG 100 units/mL injectable solution, 20 unit(s), SubCutaneous, As Directed, 2 refills Keflex 500 mg Cap, 500 mg= 1 cap(s), Oral, TID Misc DME Prescription, See Instructions, 3 refills oxybutynin 10 mg ER Tab, 10 mg= 1 tab(s), Oral, Daily, Not taking potassium chloride 10 mEq ER Tab, 10 mEq= 1 tab(s), Oral, Daily, 5 refills rosuvastatin 5 mg Tab, 5 mg= 1 tab(s), Oral, Daily, 1 refills Tresiba FlexTouch 100 units/mL subcutaneous solution, 20 unit(s), SubCutaneous, As Directed, 1 refills Home aspirin 81 mg Oral EC Tab carvedilol 25 mg Tab, 25 mg= 1 tab(s), BID Colace, Oral, Daily ferrous sulfate 325 mg oral enteric coated tablet, 325 mg= 1 tab(s), Oral, Every other day furosemide 40 mg Tab, 40 mg= 1 tab(s), Daily Plavix 75 mg Tab, 75 mg= 1 tab(s), Daily Tylenol, 650 mg, Oral Vitamin C 500 mg oral tablet, chewable, 500 mg= 1 tab(s), Chewed, Daily Vitamin D Oral, 199[address] [employer], Oral, Daily With When Contact Information STEFAN BEST 03/05/2024 01:45 PM EDT [address] [place], [place] [address] (1) Additional Instructions: Acute Kidney Injury, Adult Sepsis, Diagnosis, Adult Extracted from: Title:APSO Note Author:KADE MARLOW, Olesyaanefo Date: 78-year-old female with diab etes mellitus type 2, hypertension, coronary artery disease, chronic kidney disease stage III, peripheral artery disease, ureteral stricture/hydronephrosis status post stent presented with complaints of generalized weakness, chills and suprapubic pain and admitted with acute metabolic encephalopathy, sepsis secondary to gram-negative sabrina urinary tract infection, acute kidney injury on chronic kidney disease, generalized weakness, elevated troponin 1. Acute metabolic encephalopathy (G93.41: Metabolic encephalopathy) Acute metabolic encephalopathy secondary to sepsis/urinary tract infection and acute kidney injury present on admission. Resolved. Ordered: Neurological Assessment [facility] Hospital Care/Day Moderate 35 Minutes 80876 2. Sepsis (A41.9: Sepsis, unspecified organism) Sepsis secondary to urinary tract infection present on admission. Resolved. Urine cultures isolating gram-negative sabrina organisms. Blood cultures so far not isolating any organisms. Ordered: [facility] Care/Day Moderate 35 Minutes 56396 3. Urinary tract infection (N39.0: Urinary tract infection, site not specified) Gram-negative sabrina urinary tract infection present on admission. Treated with IV ceftriaxone and will transition to oral antibiotics at discharge. Ordered: [facility] Hospital Care/Day Moderate 35 Minutes [id number] 4. Acute kidney injury (N17.9: Acute kidney failure, unspecified) Acute kidney injury on chronic kidney disease secondary to ATN from above sepsis and UTI. Resolved. Creatinine down to 1.5. Baseline creatinine 1.4 1.5 Avoid nephrotoxic drugs. Treated with IV fluids. Ordered: [facility] Hospital Care/Day Moderate 35 Minutes 56900 5. Elevated troponin (R79.89: Other specified abnormal findings of blood chemistry) Elevated troponin secondary to type II non-ST segment elevation myocardial infarction from above disease process. Troponin trended down. Patient has no chest pain. No further workup needed. Ordered: [facility] Hospital Care/Day Moderate 35 Minutes [id number] 6. Hypoglycemia (E16.2: Hypoglycemia, unspecified) Secondary to long-acting insulin. Resolved. 7. Generalized weakness (R53.1: Weakness) Secondary to generalized debility. Improved. 8. Decubitus ulcer of coccygeal region, stage 1 (L89.151: Pressure ulcer of sacral region, stage 1) Bilateral coccyx stage I decubitus ulcer present on admission. Turn patient frequently. Apply barrier dressing. 9. Diabetes (E11.9: Type 2 diabetes mellitus without complications) Continue on long-acting and short acting insulin. 10. CKD stage 3b, 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 (N18.32: Chronic kidney disease, stage 3b) Secondary to diabetic and hypertensive nephropathy. At baseline. 11. Pure hypercholesterolemia (E78.00: Pure hypercholesterolemia, unspecified) On Crestor at home. We will resume at discharge. Patient is intolerant to atorvastatin used here at [facility]. 12. Class 3 severe obesity with serious comorbidity in adult (E66.01: Morbid (severe) obesity due to excess calories) Recommend therapeutic lifestyle modification changes. 13. Coronary artery disease (I25.10: Atherosclerotic heart disease of seminole coronary artery without angina pectoris) Status post CABG. Stable. Continue on Plavix, Coreg. 14. On deep vein thrombosis (DVT) prophylaxis (Z79.899: Other intermediate teacher (current) drug therapy) Heparin. Disposition: Discharging AM pending final urine culture result and if patient remains fever free for 24 hours. Also pending precertification versus home health arrangement. I discussed the diagnosis and plan of care with the patient at the bedside. Moderate level of MDM based on addressing above issues. This documentation was transcribed using voice recognition software. Several attempts were made to ensure accuracy. However inadvertent computerized medical registrar errors may be present. Allison Chance. Hospitalist. Orders: furosemide, 20 mg = 1 tab(s), Tab, Oral, Daily, Routine, Start date 02/28/24 9:00:00 EDT, 02/28/24 8:55:00 EDT potassium chloride, 10 mEq = 1 cap(s), Cap-ER, Oral, Daily, Routine, Start date 02/28/24 9:00:00 EDT, 02/28/24 8:55:00 EDT Capillary Glucose POC Capillary Glucose POC Capillary Glucose POC Capillary Glucose POC Capillary Glucose POC Urine Culture Extracted from: Title:APSO Note Author:Allison CHANCE MD Date: 78-year-old female with diab etes mellitus type 2, hypertension, coronary artery disease, chronic kidney disease stage III, peripheral artery disease, ureteral stricture/hydronephrosis status post stent presented with complaints of generalized weakness, chills and suprapubic pain and admitted with acute metabolic encephalopathy, sepsis secondary to urinary tract infection, acute kidney injury on chronic kidney disease, generalized weakness, elevated troponin 1. Acute metabolic encephalopathy (G93.41: Metabolic encephalopathy) Acute metabolic encephalopathy secondary to sepsis/urinary tract infection and acute kidney injury present on admission. Resolved. Back to her baseline mentation. Treating underlying disease process. Neurochecks. Follow cultures. Ordered: Home Health Orders Neurological Assessment [facility] Care/Day Moderate 35 Minutes 04038 2. Sepsis (A41.9: Sepsis, unspecified organism) Sepsis secondary to urinary tract infection present on admission. Resolved. Treating with IV fluid, IV ceftriaxone. Blood cultures so far not isolating any organisms. Ordered: Home Health Orders [facility] Care/Day Moderate 35 Minutes 85665 3. Urinary tract infection (N39.0: Urinary tract infection, site not specified) Urinary tract infection present on admission. Treating with IV ceftriaxone pending final urine culture result. Ordered: [facility] Care/Day Moderate 35 Minutes [id number] 4. Acute kidney injury (N17.9: Acute kidney failure, unspecified) Acute kidney injury on chronic kidney disease secondary to ATN from above sepsis and UTI. Resolved. Creatinine down to 1.5. Baseline creatinine 1.4 1.5 Avoid nephrotoxic drugs. Treating with IV fluids. Ordered: Basic Metabolic Panel eGFR Extra Lav Tube [facility] Care/Day Moderate 35 Minutes 03518 5. Elevated troponin (R79.89: Other specified abnormal findings of blood chemistry) Elevated troponin secondary to type II non-ST segment elevation myocardial infarction from above disease process. Troponin trended down. Patient has no chest pain. No further workup needed. Ordered: [facility] Hospital Care/Day Moderate 35 Minutes [id number] 6. Hypoglycemia (E16.2: Hypoglycemia, unspecified) Secondary to insulin effect. Reduced Lantus to 25 units at bedtime. Patient was treated with tolerating juice and dextrose 50. 7. Generalized weakness (R53.1: Weakness) Secondary to generalized debility. Seen by physical therapist recommend SNF. Patient is wanting to go home. Will will reevaluate every day to see if she is able to go home. Ordered: 8. Decubitus ulcer of coccygeal region, stage 1 (L89.151: Pressure ulcer of sacral region, stage 1) Bilateral coccyx stage I decubitus ulcer present on admission. Turn patient frequently. Apply barrier dressing. 9. Diabetes (E11.9: Type 2 diabetes mellitus without complications) Continue on long-acting and short acting insulin. 10. CKD stage 3b, 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 (N18.32: Chronic kidney disease, stage 3b) Secondary to diabetic and hypertensive nephropathy. At baseline. 11. Pure hypercholesterolemia (E78.00: Pure hypercholesterolemia, unspecified) On Crestor at home. We will resume at discharge. Patient is intolerant to atorvastatin. 12. Class 3 severe obesity with serious comorbidity in adult (E66.01: Morbid (severe) obesity due to excess calories) Recommend therapeutic lifestyle modification changes. 13. Coronary artery disease (I25.10: Atherosclerotic heart disease of seminole coronary artery without angina pectoris) Status post CABG. Stable. Continue on Plavix, Coreg. 14. On deep vein thrombosis (DVT) prophylaxis (Z79.899: Other intermediate teacher (current) drug therapy) Heparin. Disposition: Pending final urine culture result. I discussed the diagnosis and plan of care with the patient at the bedside. Moderate level of MDM based on addressing above issues. This documentation was transcribed using voice recognition software. Several attempts were made to ensure accuracy. However inadvertent computerized medical registrar errors may be present. Allison Chance. Hospitalist. Orders: glucose, 50 mL, Soln-IV, IV Push, Once PRN Blood glucose, Routine, Start date 02/26/24 18:56:00 EDT insulin glargine, 25 unit(s) = 0.25 mL, Injection-Insulin, SubCutaneous, Bedtime, Routine, Start date 02/28/24 21:00:00 EDT Blood Culture Charcoal Blood Culture Charcoal Capillary Glucose POC Capillary Glucose POC Capillary Glucose POC Capillary Glucose POC Occupational Therapy Additional Tx Occupational Therapy Evaluate Patient, Develop a Plan of Care and Implement Plan Physical Therapy Additional Tx Physical Therapy Evaluate Patient, Develop a Plan of Care and Implement Plan Referral to Resource Center Referral to Resource Center Extracted from: Title:APSO Note Author:Allison CHANCE MD Date: 78-year-old female with diab etes mellitus type 2, hypertension, coronary artery disease, chronic kidney disease stage III, peripheral artery disease, ureteral stricture/hydronephrosis status post stent presented with complaints of generalized weakness, chills and suprapubic pain and admitted with acute metabolic encephalopathy, sepsis secondary to urinary tract infection, acute kidney injury on chronic kidney disease, generalized weakness, elevated troponin 1. Acute metabolic encephalopathy (G93.41: Metabolic encephalopathy) Acute metabolic encephalopathy secondary to sepsis/urinary tract infection and acute kidney injury present on admission. Treating underlying disease process. Neurochecks. Follow cultures. Ordered: [facility] Hospital Care/Day Moderate 35 Minutes 33781 2. Sepsis (A41.9: Sepsis, unspecified organism) Sepsis secondary to urinary tract infection present on admission. Treating with IV fluid, IV ceftriaxone. Follow cultures. Ordered: [facility] Hospital Care/Day Moderate 35 Minutes 60792 3. Urinary tract infection (N39.0: Urinary tract infection, site not specified) Urinary tract infection present on admission. Treating with IV ceftriaxone pending final urine culture result. Ordered: [facility] Hospital Care/Day Moderate 35 Minutes 63488 4. Acute kidney injury (N17.9: Acute kidney failure, unspecified) Acute kidney injury on chronic kidney disease secondary to ATN from above sepsis and UTI. Avoid nephrotoxic drugs. Treating with IV fluids. Repeat BMP in AM. Ordered: Basic Metabolic Panel [facility] Hospital Care/Day Moderate 35 Minutes 02847 5. Elevated troponin (R79.89: Other specified abnormal findings of blood chemistry) Elevated troponin secondary to type II non-ST segment elevation myocardial infarction from above disease process. Troponin trended down. Patient has no chest pain. No further workup needed. Ordered: [facility] Hospital Care/Day Moderate 35 Minutes 11294 6. Generalized weakness (R53.1: Weakness) Secondary to generalized debility. Physical therapy evaluation pending. 7. Decubitus ulcer of coccygeal region, stage 1 (L89.151: Pressure ulcer of sacral region, stage 1) Bilateral coccyx stage I decubitus ulcer present on admission. Turn patient frequently. Apply barrier dressing. 8. Diabetes (E11.9: Type 2 diabetes mellitus without complications) Continue on long-acting and short acting insulin. 9. CKD stage 3b, 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 (N18.32: Chronic kidney disease, stage 3b) Secondary to diabetic and hypertensive nephropathy. Approaching baseline. 10. Pure hypercholesterolemia (E78.00: Pure hypercholesterolemia, unspecified) On Crestor at home. We will resume at discharge. Patient is intolerant to atorvastatin. 11. Class 3 severe obesity with serious comorbidity in adult (E66.01: Morbid (severe) obesity due to excess calories) Recommend therapeutic lifestyle modification changes. 12. Coronary artery disease (I25.10: Atherosclerotic heart disease of seminole coronary artery without angina pectoris) Status post CABG. Stable. Continue on Plavix, Coreg. Will verify aspirin. 13. On deep vein thrombosis (DVT) prophylaxis (Z79.899: Other senior living (current) drug therapy) Heparin. Orders: acetaminophen, 650 mg = 2 tab(s), Tab, Oral, q6hr PRN Pain, Routine, Start date 02/26/24 18:52:00 EDT, 02/26/24 18:52:00 EDT Al hydroxide/Mg hydroxide/simethicone, 30 mL, Susp-Oral, Oral, q6hr PRN Indigestion, Routine, Start date 02/26/24 18:52:00 EDT ceftriaxone + Sodium Chloride 0.9% intravenous solution 50 mL, 1,000 mg = 1 EA, Injection, IV Piggyback, Daily, Routine, Start date 02/27/24 9:00:00 EDT, 100 mL/hr, Infuse over 30 minute(s) ceftriaxone + Sodium Chloride 0.9% intravenous solution 50 mL, 1,000 mg = 1 EA, Injection, IV Piggyback, Once, Stop date 02/26/24 18:49:00 EDT, STAT, Start date 02/26/24 18:49:00 EDT, 100 mL/hr, Infuse over 30 minute(s) clopidogrel, 75 mg = 1 tab(s), Tab, Oral, Daily, Routine, Start date 02/27/24 9:00:00 EDT diphenhydrAMINE, 25 mg = 1 cap(s), Cap, Oral, q6hr PRN Itching, Routine, Start date 02/26/24 18:52:00 EDT, 02/26/24 18:52:00 EDT glucose, 50 mL, Soln-IV, IV Push, Once PRN Blood glucose, Routine, Start date 02/26/24 18:56:00 EDT heparin, 5,000 unit(s) = 1 mL, Injection, SubCutaneous, q8hrFT for 30 day(s), Stop date 03/27/24 23:59:00 EDT, Routine, Start date 02/27/24 0:00:00 EDT hydrALAZINE, 10 mg = 0.5 mL, Injection, IV Push, q6hr PRN Other (see comment), Routine, Start date 02/26/24 18:52:00 EDT, 02/26/24 18:52:00 EDT insulin lispro, 0-10 Unit(s), Injection-Insulin, SubCutaneous, QIDACHS, Routine, Start date 02/26/24 21:00:00 EDT magnesium hydroxide, 30 mL, Susp-Oral, Oral, q6hr PRN Constipation, Routine, Start date 02/26/24 18:52:00 EDT morphine, 2 mg = 1 mL, Injection, IV Push, q4hr PRN Pain for 5 day(s), Stop date 03/02/24 18:51:00 EDT, Routine, Start date 02/26/24 18:52:00 EDT, 02/26/24 18:52:00 EDT ondansetron, 4 mg = 2 mL, Injection, IV Push, q6hr PRN Nausea, Routine, Start date 02/26/24 18:52:00 EDT, 02/26/24 18:52:00 EDT senna, 17.2 mg = 2 tab(s), Tab, Oral, BID PRN Other (see comment), Routine, Start date 02/26/24 18:52:00 EDT Sodium Chloride 0.9% intravenous solution, 500 mL, Soln-IV, IV, Once, Stop date 02/26/24 18:49:00 EDT, STAT, Start date 02/26/24 18:49:00 EDT, 500 mL/hr, Infuse over 1, hour(s) Sodium Chloride 0.9% intravenous solution 1,000 mL, 1,000 mL, IV, 100 mL/hr, for 1 dose(s), Stop date 02/27/24 4:48:00 EDT, Routine, Start date 02/26/24 18:49:00 EDT, 10 hour(s), Total volume (mL): 1,000, 76.4 kg, 1.78, m2 zolpidem, 5 mg = 1 tab(s), Tab, Oral, Bedtime PRN Sleep, Routine, Start date 02/26/24 18:52:00 EDT Ambulate with Assistance Basic Metabolic Panel Bladder Scan Blood Culture Charcoal Blood Culture Charcoal Capillary Glucose POC Capillary Glucose POC Cardiac Monitoring CBC w/ Auto Diff Continuous Pulse Oximetry Diabetic/Calorie Control Diet eGFR HgbA1c Hypoglycemia Protocol Responsive Patient Hypoglycemia Protocol Unresponsive Patient Lactic Acid Lactic Acid Occupational Therapy Evaluate Patient, Develop a Plan of Care and Implement Plan Oxygen Protocol Oxygen Therapy Peripheral IV Insertion Physical Therapy Evaluate Patient, Develop a Plan of Care and Implement Plan Place in Status Pulse Oximetry Routine Capillary Glucose POC UA with Cult Rflx Urine Culture Vital Signs Vital Signs Weight Addendum by Brennen CHANCE MD on February 27, 2024 11:54:09 EDT - I discussed the diagnosis and plan of care with the patient at the bedside. Moderate level of MDM based on addressing above issues. This documentation was transcribed using voice recognition software. Several attempts were made to ensure accuracy. However inadvertent computerized medical registrar errors may be present. Allison Chance. Hospitalist. Extracted from: Title:Admission H & P Author:Allison CHANCE MD Date:02/26/24 78-year-old female with diab etes mellitus type 2, hypertension, coronary artery disease, chronic kidney disease stage III, peripheral artery disease, ureteral stricture/hydronephrosis status post stent presented with complaints of generalized weakness, chills and suprapubic pain and is being admitted with sepsis secondary to urinary tract infection, acute kidney injury on chronic kidney disease, generalized weakness. 1. Sepsis (A41.9: Sepsis, unspecified organism) Sepsis secondary to suspected urinary tract infection. Admit to regular medical floor. Send blood culture, lactic acid level, UA with culture. Start patient on IV fluid and IV ceftriaxone. 2. Urinary tract infection (N39.0: Urinary tract infection, site not specified) Suspected urinary tract infection patient has suprapubic tenderness. Send urine culture. Do bladder scan. 3. Acute kidney injury (N17.9: Acute kidney failure, unspecified) Acute kidney injury on chronic kidney disease secondary to ATN from above urinary tract infection. Avoid nephrotoxic drugs. Started patient on IV fluid cautiously in this patient with reduced ejection fraction. Lasix on hold. Repeat BMP in AM. 4. Generalized weakness (R53.1: Weakness) Secondary to generalized debility. Physical therapy evaluation. 5. Diabetes (E11.9: Type 2 diabetes mellitus without complications) Continue on long-acting and short acting insulin. 6. Pure hypercholesterolemia (E78.00: Pure hypercholesterolemia, unspecified) On Crestor at home. 7. Class 3 severe obesity with serious comorbidity in adult (E66.01: Morbid (severe) obesity due to excess calories) Secondary to diabetic and hypertensive nephropathy. 8. Coronary artery disease (I25.10: Atherosclerotic heart disease of seminole coronary artery without angina pectoris) Status post CABG: Stable. On aspirin, Plavix, will resume Coreg with hold parameters. 9. On deep vein thrombosis (DVT) prophylaxis (Z79.899: Other senior living (current) drug therapy) Heparin. Disposition: The patient will be admitted under inpatient status and will require greater than 2 midnight hospital stay for the treatment of above sepsis secondary to urinary tract infection, acute kidney injury, generalized weakness. I discussed the diagnosis and plan of care with the patient and spouse at the bedside. High level of MDM based on addressing above issues. This documentation was transcribed using voice recognition software. Several attempts were made to ensure accuracy. However inadvertent computerized medical registrar errors may be present. Allison Chance. Hospitalist. Orders: acetaminophen, 650 mg = 2 tab(s), Tab, Oral, q6hr PRN Pain, Routine, Start date 02/26/24 18:52:00 EDT, 02/26/24 18:52:00 EDT Al hydroxide/Mg hydroxide/simethicone, 30 mL, Susp-Oral, Oral, q6hr PRN Indigestion, Routine, Start date 02/26/24 18:52:00 EDT ceftriaxone + Sodium Chloride 0.9% intravenous solution 50 mL, 1,000 mg = 1 EA, IV Piggyback, Daily, Routine, Start date 02/27/24 9:00:00 EDT, 100 mL/hr, Infuse over 30 minute(s), 02/26/24 18:57:00 EDT ceftriaxone + Sodium Chloride 0.9% intravenous solution 50 mL, 1,000 mg = 1 EA, Injection, IV Piggyback, Once, Stop date 02/26/24 18:49:00 EDT, STAT, Start date 02/26/24 18:49:00 EDT, 100 mL/hr, Infuse over 30 minute(s) diphenhydrAMINE, 25 mg = 1 cap(s), Cap, Oral, q6hr PRN Itching, Routine, Start date 02/26/24 18:52:00 EDT, 02/26/24 18:52:00 EDT glucose, 50 mL, Soln-IV, IV Push, Once PRN Blood glucose, Routine, Start date 02/26/24 18:56:00 EDT heparin, 5,000 unit(s) = 1 mL, Injection, SubCutaneous, BID for 30 day(s), Stop date 03/27/24 20:59:00 EDT, Routine, Start date 02/26/24 21:00:00 EDT, 02/26/24 18:52:00 EDT hydrALAZINE, 10 mg = 0.5 mL, Injection, IV Push, q6hr PRN Other (see comment), Routine, Start date 02/26/24 18:52:00 EDT, 02/26/24 18:52:00 EDT insulin lispro, 0-10 Unit(s), Injection-Insulin, SubCutaneous, QIDACHS, Routine, Start date 02/26/24 21:00:00 EDT magnesium hydroxide, 30 mL, Susp-Oral, Oral, q6hr PRN Constipation, Routine, Start date 02/26/24 18:52:00 EDT morphine, 2 mg = 1 mL, Injection, IV Push, q4hr PRN Pain for 5 day(s), Stop date 03/02/24 18:51:00 EDT, Routine, Start date 02/26/24 18:52:00 EDT, 02/26/24 18:52:00 EDT ondansetron, 4 mg = 2 mL, Injection, IV Push, q6hr PRN Nausea, Routine, Start date 02/26/24 18:52:00 EDT, 02/26/24 18:52:00 EDT senna, 17.2 mg = 2 tab(s), Tab, Oral, BID PRN Other (see comment), Routine, Start date 02/26/24 18:52:00 EDT, 02/26/24 18:52:00 EDT Sodium Chloride 0.9% intravenous solution, 500 mL, Soln-IV, IV, Once, Stop date 02/26/24 18:49:00 EDT, STAT, Start date 02/26/24 18:49:00 EDT, 500 mL/hr, Infuse over 1, hour(s) Sodium Chloride 0.9% intravenous solution 1,000 mL, 1,000 mL, IV, 100 mL/hr, for 1 dose(s), Stop date 02/27/24 4:48:00 EDT, Routine, Start date 02/26/24 18:49:00 EDT, 10 hour(s), Total volume (mL): 1,000, 76.4 kg, 1.78, m2 zolpidem, 5 mg = 1 tab(s), Tab, Oral, Bedtime PRN Sleep, Routine, Start date 02/26/24 18:52:00 EDT, 02/26/24 18:52:00 EDT Ambulate with Assistance Basic Metabolic Panel Bladder Scan Blood Culture Charcoal Blood Culture Charcoal Cardiac Monitoring CBC w/ Auto Diff Continuous Pulse Oximetry Diabetic/Calorie Control Diet HgbA1c Hypoglycemia Protocol Responsive Patient Hypoglycemia Protocol Unresponsive Patient Lactic Acid Lactic Acid Occupational Therapy Evaluate Patient, Develop a Plan of Care and Implement Plan Oxygen Protocol Oxygen Therapy Peripheral IV Insertion Physical Therapy Evaluate Patient, Develop a Plan of Care and Implement Plan Place in Status Pulse Oximetry Routine Capillary Glucose POC UA with Cult Rflx Vital Signs Vital Signs Vital Signs Vital Signs Weight [facility] 08-18-2024 NoteProgress Note-Physician Assessment/Plan 78-year-old female with diabetes mellitus type 2, hypertension, coronary artery disease, chronic kidney disease stage III, peripheral artery disease, ureteral stricture/hydronephrosis status post stent presented with complaints of generalized weakness, chills and suprapubic pain and admitted with acute metabolic encephalopathy, sepsis secondary to gram-negative sabrina urinary tract infection, acute kidney injury on chronic kidney disease, generalized weakness, elevated troponin 1. Acute metabolic encephalopathy (G93.41: Metabolic encephalopathy) Acute metabolic encephalopathy?secondary to sepsis/urinary tract infection and acute kidney injury?present on admission. Resolved. Ordered: Neurological Assessment [facility] Hospital Care/Day Moderate 35 Minutes 87087 2. Sepsis (A41.9: Sepsis, unspecified organism) Sepsis?secondary to urinary tract infection?present on admission. Resolved. Urine cultures isolating gram-negative sabrina organisms. Blood cultures so far not isolating any organisms. Ordered: [facility] Hospital Care/Day Moderate 35 Minutes 01677 3. Urinary tract infection (N39.0: Urinary tract infection, site not specified) Gram-negative sabrina urinary tract infection?present on admission. Treated with IV ceftriaxone and will transition to oral antibiotics at discharge. Ordered: [facility] Hospital Care/Day Moderate 35 Minutes 68739 4. Acute kidney injury (N17.9: Acute kidney failure, unspecified) Acute kidney injury on chronic kidney disease?secondary to ATN from above sepsis and UTI. Resolved. Creatinine down to 1.5. Baseline creatinine 1.4?1.5 Avoid nephrotoxic drugs. Treated with IV fluids. Ordered: [facility] Hospital Care/Day Moderate 35 Minutes 36476 5. Elevated troponin (R79.89: Other specified abnormal findings of blood chemistry) Elevated troponin?secondary to type II non-ST segment elevation myocardial infarction from above disease process. Troponin trended down. Patient has no chest pain. No further workup needed. Ordered: [facility] Hospital Care/Day Moderate 35 Minutes 36794 6. Hypoglycemia (E16.2: Hypoglycemia, unspecified) Secondary to long-acting insulin. Resolved. 7. Generalized weakness (R53.1: Weakness) Secondary to generalized debility. Improved. 8. Decubitus ulcer of coccygeal region, stage 1 (L89.151: Pressure ulcer of sacral region, stage 1) Bilateral coccyx stage I decubitus ulcer?present on admission. Turn patient frequently. Apply barrier dressing. 9. Diabetes (E11.9: Type 2 diabetes mellitus without complications) Continue on long-acting and short acting insulin. 10. CKD stage 3b, 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 (N18.32: Chronic kidney disease, stage 3b) Secondary to diabetic and hypertensive nephropathy. At baseline. 11. Pure hypercholesterolemia (E78.00: Pure hypercholesterolemia, unspecified) On Crestor at home. We will resume at discharge. Patient is intolerant to atorvastatin used here at [facility]. 12. Class 3 severe obesity with serious comorbidity in adult (E66.01: Morbid (severe) obesity due to excess calories) Recommend therapeutic lifestyle modification changes. 13. Coronary artery disease (I25.10: Atherosclerotic heart disease of seminole coronary artery without angina pectoris) Status post CABG. Stable. Continue on Plavix, Coreg. 14. On deep vein thrombosis (DVT) prophylaxis (Z79.899: Other senior living (current) drug therapy) Heparin. Disposition: Discharging AM pending final urine culture result and if patient remains fever free for 24 hours. Also pending precertification versus home health arrangement. I discussed the diagnosis and plan of care with the patient at the bedside. Moderate level of MDM based on addressing above issues. This documentation was transcribed using voice recognition software. Several attempts were made to ensure accuracy. However inadvertent computerized medical registrar errors may be present. Allison Chance. Hospitalist. Orders: furosemide, 20 mg = 1 tab(s), Tab, Oral, Daily, Routine, Start date 02/28/24 9:00:00 EDT, 02/28/24 8:55:00 EDT potassium chloride, 10 mEq = 1 cap(s), Cap-ER, Oral, Daily, Routine, Start date 02/28/24 9:00:00 EDT, 02/28/24 8:55:00 EDT Capillary Glucose POC Capillary Glucose POC Capillary Glucose POC Capillary Glucose POC Capillary Glucose POC Urine Culture Subjective Seen and examined. She feels well today. Offers no complaints. She continues to improve with regards to her strength. She is considering going home with home health. Objective Vitals & Measurements T: 36.7 ?C(Axillary) TMIN: 36.3 ?C(Oral) TMAX: 38 ?C(Axillary) HR: 73(Monitored) RR: 18 RR: 18 BP: 123/54 SpO2: 98% SpO2: 97% WT: 74.9 kg Intake & Output This visit (24 hour periods starting at 07:00 EDT) 02/29/24 * 02/28/24 02/27/24 Total Summary Intake mL -- 530 207.04 Output mL -- 800 600 Fluid Balance -- -270 -392.96 Intake (4) Oral Intake mL (more content not included)...[facility]:Result Comment: Electronically Signed By: KADE MARLOW, Allison\.br\Date and Time Signed: 02/29/24 08:54 [id number] NoteProgress Note-Physician Assessment/Plan 78-year-old female with diabetes mellitus type 2, hypertension, coronary artery disease, chronic kidney disease stage III, peripheral artery disease, ureteral stricture/hydronephrosis status post stent presented with complaints of generalized weakness, chills and suprapubic pain and admitted with acute metabolic encephalopathy, sepsis secondary to urinary tract infection, acute kidney injury on chronic kidney disease, generalized weakness, elevated troponin 1. Acute metabolic encephalopathy (G93.41: Metabolic encephalopathy) Acute metabolic encephalopathy?secondary to sepsis/urinary tract infection and acute kidney injury?present on admission. Resolved. Back to her baseline mentation. Treating underlying disease process. Neurochecks. Follow cultures. Ordered: Home Health Orders Neurological Assessment [facility] Hospital Care/Day Moderate 35 Minutes 13657 2. Sepsis (A41.9: Sepsis, unspecified organism) Sepsis?secondary to urinary tract infection?present on admission. Resolved. Treating with IV fluid, IV ceftriaxone. Blood cultures so far not isolating any organisms. Ordered: Home Health Orders [facility] Care/Day Moderate 35 Minutes [id number] 3. Urinary tract infection (N39.0: Urinary tract infection, site not specified) Urinary tract infection?present on admission. Treating with IV ceftriaxone pending final urine culture result. Ordered: [facility] Care/Day Moderate 35 Minutes 76967 4. Acute kidney injury (N17.9: Acute kidney failure, unspecified) Acute kidney injury on chronic kidney disease?secondary to ATN from above sepsis and UTI. Resolved. Creatinine down to 1.5. Baseline creatinine 1.4?1.5 Avoid nephrotoxic drugs. Treating with IV fluids. Ordered: Basic Metabolic Panel eGFR Extra Lav [facility] Hospital Care/Day Moderate 35 Minutes 08901 5. Elevated troponin (R79.89: Other specified abnormal findings of blood chemistry) Elevated troponin?secondary to type II non-ST segment elevation myocardial infarction from above disease process. Troponin trended down. Patient has no chest pain. No further workup needed. Ordered: [facility] Care/Day Moderate 35 Minutes 34531 6. Hypoglycemia (E16.2: Hypoglycemia, unspecified) Secondary to insulin effect. Reduced Lantus to 25 units at bedtime. Patient was treated with tolerating juice and dextrose 50. 7. Generalized weakness (R53.1: Weakness) Secondary to generalized debility. Seen by physical therapist?recommend SNF. Patient is wanting to go home. Will will reevaluate every day to see if she is able to go home. Ordered: 8. Decubitus ulcer of coccygeal region, stage 1 (L89.151: Pressure ulcer of sacral region, stage 1) Bilateral coccyx stage I decubitus ulcer?present on admission. Turn patient frequently. Apply barrier dressing. 9. Diabetes (E11.9: Type 2 diabetes mellitus without complications) Continue on long-acting and short acting insulin. 10. CKD stage 3b, 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 (N18.32: Chronic kidney disease, stage 3b) Secondary to diabetic and hypertensive nephropathy. At baseline. 11. Pure hypercholesterolemia (E78.00: Pure hypercholesterolemia, unspecified) On Crestor at home. We will resume at discharge. Patient is intolerant to atorvastatin. 12. Class 3 severe obesity with serious comorbidity in adult (E66.01: Morbid (severe) obesity due to excess calories) Recommend therapeutic lifestyle modification changes. 13. Coronary artery disease (I25.10: Atherosclerotic heart disease of seminole coronary artery without angina pectoris) Status post CABG. Stable. Continue on Plavix, Coreg. 14. On deep vein thrombosis (DVT) prophylaxis (Z79.899: Other senior living (current) drug therapy) Heparin. Disposition: Pending final urine culture result. I discussed the diagnosis and plan of care with the patient at the bedside. Moderate level of MDM based on addressing above issues. This documentation was transcribed using voice recognition software. Several attempts were made to ensure accuracy. However inadvertent computerized medical registrar errors may be present. Allison Chance. Hospitalist. Orders: glucose, 50 mL, Soln-IV, IV Push, Once PRN Blood glucose, Routine, Start date 02/26/24 18:56:00 EDT insulin glargine, 25 unit(s) = 0.25 mL, Injection-Insulin, SubCutaneous, Bedtime, Routine, Start date 02/28/24 21:00:00 EDT Blood Culture Charcoal Blood Culture Charcoal Capillary Glucose POC Capillary Glucose POC Capillary Glucose POC Capillary Glucose POC Occupational Therapy Additional Tx Occupational Therapy Evaluate Patient, Develop a Plan of Care and Implement Plan Physical Therapy Additional Tx Physical Therapy Evaluate Patient, Develop a Plan of Care and Implement Plan Referral to Resource Center Referral to Resource Center Subjective Seen and examined. Complains of low blood sugar this morning. Otherwise feeling much better. Feeli (more content not included)...[facility] Comment on above:Result Comment: Electronically Signed By: KADE MARLOW, Allison\.br\Date and Time Signed: 02/28/24 08:54 [id number] NoteProgress Note-Physician Assessment/Plan 78-year-old female with diabetes mellitus type 2, hypertension, coronary artery disease, chronic kidney disease stage III, peripheral artery disease, ureteral stricture/hydronephrosis status post stent presented with complaints of generalized weakness, chills and suprapubic pain and admitted with acute metabolic encephalopathy, sepsis secondary to urinary tract infection, acute kidney injury on chronic kidney disease, generalized weakness, elevated troponin 1. Acute metabolic encephalopathy (G93.41: Metabolic encephalopathy) Acute metabolic encephalopathy?secondary to sepsis/urinary tract infection and acute kidney injury?present on admission. Treating underlying disease process. Neurochecks. Follow cultures. Ordered: [facility] Care/Day Moderate 35 Minutes 74029 2. Sepsis (A41.9: Sepsis, unspecified organism) Sepsis?secondary to urinary tract infection?present on admission. Treating with IV fluid, IV ceftriaxone. Follow cultures. Ordered: [facility] Care/Day Moderate 35 Minutes 46361 3. Urinary tract infection (N39.0: Urinary tract infection, site not specified) Urinary tract infection?present on admission. Treating with IV ceftriaxone pending final urine culture result. Ordered: [facility] Hospital Care/Day Moderate 35 Minutes 18552 4. Acute kidney injury (N17.9: Acute kidney failure, unspecified) Acute kidney injury on chronic kidney disease?secondary to ATN from above sepsis and UTI. Avoid nephrotoxic drugs. Treating with IV fluids. Repeat BMP in AM. Ordered: Basic Metabolic Panel [facility] Hospital Care/Day Moderate 35 Minutes 62907 5. Elevated troponin (R79.89: Other specified abnormal findings of blood chemistry) Elevated troponin?secondary to type II non-ST segment elevation myocardial infarction from above disease process. Troponin trended down. Patient has no chest pain. No further workup needed. Ordered: [facility] Hospital Care/Day Moderate 35 Minutes 46082 6. Generalized weakness (R53.1: Weakness) Secondary to generalized debility. Physical therapy evaluation pending. 7. Decubitus ulcer of coccygeal region, stage 1 (L89.151: Pressure ulcer of sacral region, stage 1) Bilateral coccyx stage I decubitus ulcer?present on admission. Turn patient frequently. Apply barrier dressing. 8. Diabetes (E11.9: Type 2 diabetes mellitus without complications) Continue on long-acting and short acting insulin. 9. CKD stage 3b, 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 (N18.32: Chronic kidney disease, stage 3b) Secondary to diabetic and hypertensive nephropathy. Approaching baseline. 10. Pure hypercholesterolemia (E78.00: Pure hypercholesterolemia, unspecified) On Crestor at home. We will resume at discharge. Patient is intolerant to atorvastatin. 11. Class 3 severe obesity with serious comorbidity in adult (E66.01: Morbid (severe) obesity due to excess calories) Recommend therapeutic lifestyle modification changes. 12. Coronary artery disease (I25.10: Atherosclerotic heart disease of seminole coronary artery without angina pectoris) Status post CABG. Stable. Continue on Plavix, Coreg. Will verify aspirin. 13. On deep vein thrombosis (DVT) prophylaxis (Z79.899: Other intermediate teacher (current) drug therapy) Heparin. Orders: acetaminophen, 650 mg = 2 tab(s), Tab, Oral, q6hr PRN Pain, Routine, Start date 02/26/24 18:52:00 EDT, 02/26/24 18:52:00 EDT Al hydroxide/Mg hydroxide/simethicone, 30 mL, Susp-Oral, Oral, q6hr PRN Indigestion, Routine, Startdate 02/26/24 18:52:00 EDT ceftriaxone + Sodium Chloride 0.9% intravenous solution 50 mL, 1,000 mg = 1 EA, Injection, IV Piggyback, Daily, Routine, Start date 02/27/24 9:00:00 EDT, 100 mL/hr, Infuse over 30 minute(s) ceftriaxone + Sodium Chloride 0.9% intravenous solution 50 mL, 1,000 mg = 1 EA, Injection, IV Piggyback, Once, Stop date 02/26/24 18:49:00 EDT, STAT, Start date 02/26/24 18:49:00 EDT, 100 mL/hr, Infuse over 30 minute(s) clopidogrel, 75 mg = 1 tab(s), Tab, Oral, Daily, Routine, Start date 02/27/24 9:00:00 EDT diphenhydrAMINE, 25 mg = 1 cap(s), Cap, Oral, q6hr PRN Itching, Routine, Start date 02/26/24 18:52:00 EDT, 02/26/24 18:52:00 EDT glucose, 50 mL, Soln-IV, IV Push, Once PRN Blood glucose, Routine, Start date 02/26/24 18:56:00 EDT heparin, 5,000 unit(s) = 1 mL, Injection, SubCutaneous, q8hrFT for 30 day(s), Stop date 03/27/24 23:59:00 EDT, Routine, Start date 02/27/24 0:00:00 EDT hydrALAZINE, 10 mg = 0.5 mL, Injection, IV Push, q6hr PRN Other (see comment), Routine, Start date 02/26/24 18:52:00 EDT, 02/26/24 18:52:00 EDT insulin lispro, 0-10 Unit(s), Injection-Insulin, SubCutaneous, QIDACHS, Routine, Start date 02/26/24 21:00:00 EDT magnesium hydroxide, 30 mL, Susp-Oral, Oral, q6hr PRN Constipation, Routine, Start date 02/26/24 18:52:00 EDT morphine, 2 mg = 1 mL, Injection, IV Push, q4hr PRN Pain for 5 day(s), Stop date 03/02/24 18:51:00 EDT, Routine, Start date 02/26/24 18:52:00 EDT, 02/26/24 18: (more content not included)...[facility]:Result Comment: Electronically Signed By: KADE MARLOW, Allison\.br\Date and Time Signed: 02/27/24 11:54 [id number] NoteProgress Note-Physician Assessment/Plan 78-year-old female with diabetes mellitus type 2, hypertension, coronary artery disease, chronic kidney disease stage III, peripheral artery disease, ureteral stricture/hydronephrosis status post stent presented with complaints of generalized weakness, chills and suprapubic pain and admitted with acute metabolic encephalopathy, sepsis secondary to urinary tract infection, acute kidney injury on chronic kidney disease, generalized weakness, elevated troponin 1. Acute metabolic encephalopathy (G93.41: Metabolic encephalopathy) Acute metabolic encephalopathy?secondary to sepsis/urinary tract infection and acute kidney injury?present on admission. Treating underlying disease process. Neurochecks. Follow cultures. Ordered: [facility] Hospital Care/Day Moderate 35 Minutes 52340 2. Sepsis (A41.9: Sepsis, unspecified organism) Sepsis?secondary to urinary tract infection?present on admission. Treating with IV fluid, IV ceftriaxone. Follow cultures. Ordered: [facility] Hospital Care/Day Moderate 35 Minutes 53549 3. Urinary tract infection (N39.0: Urinary tract infection, site not specified) Urinary tract infection?present on admission. Treating with IV ceftriaxone pending final urine culture result. Ordered: [facility] Hospital Care/Day Moderate 35 Minutes 24452 4. Acute kidney injury (N17.9: Acute kidney failure, unspecified) Acute kidney injury on chronic kidney disease?secondary to ATN from above sepsis and UTI. Avoid nephrotoxic drugs. Treating with IV fluids. Repeat BMP in AM. Ordered: Basic Metabolic Panel [facility] Hospital Care/Day Moderate 35 Minutes 21121 5. Elevated troponin (R79.89: Other specified abnormal findings of blood chemistry) Elevated troponin?secondary to type II non-ST segment elevation myocardial infarction from above disease process. Troponin trended down. Patient has no chest pain. No further workup needed. Ordered: [facility] Hospital Care/Day Moderate 35 Minutes 21449 6. Generalized weakness (R53.1: Weakness) Secondary to generalized debility. Physical therapy evaluation pending. 7. Decubitus ulcer of coccygeal region, stage 1 (L89.151: Pressure ulcer of sacral region, stage 1) Bilateral coccyx stage I decubitus ulcer?present on admission. Turn patient frequently. Apply barrier dressing. 8. Diabetes (E11.9: Type 2 diabetes mellitus without complications) Continue on long-acting and short acting insulin. 9. CKD stage 3b, 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 (N18.32: Chronic kidney disease, stage 3b) Secondary to diabetic and hypertensive nephropathy. Approaching baseline. 10. Pure hypercholesterolemia (E78.00: Pure hypercholesterolemia, unspecified) On Crestor at home. We will resume at discharge. Patient is intolerant to atorvastatin. 11. Class 3 severe obesity with serious comorbidity in adult (E66.01: Morbid (severe) obesity due to excess calories) Recommend therapeutic lifestyle modification changes. 12. Coronary artery disease (I25.10: Atherosclerotic heart disease of seminole coronary artery without angina pectoris) Status post CABG. Stable. Continue on Plavix, Coreg. Will verify aspirin. 13. On deep vein thrombosis (DVT) prophylaxis (Z79.899: Other intermediate teacher (current) drug therapy) Heparin. Orders: acetaminophen, 650 mg = 2 tab(s), Tab, Oral, q6hr PRN Pain, Routine, Start date 02/26/24 18:52:00 EDT, 02/26/24 18:52:00 EDT Al hydroxide/Mg hydroxide/simethicone, 30 mL, Susp-Oral, Oral, q6hr PRN Indigestion, Routine, Startdate 02/26/24 18:52:00 EDT ceftriaxone + Sodium Chloride 0.9% intravenous solution 50 mL, 1,000 mg = 1 EA, Injection, IV Piggyback, Daily, Routine, Start date 02/27/24 9:00:00 EDT, 100 mL/hr, Infuse over 30 minute(s) ceftriaxone + Sodium Chloride 0.9% intravenous solution 50 mL, 1,000 mg = 1 EA, Injection, IV Piggyback, Once, Stop date 02/26/24 18:49:00 EDT, STAT, Start date 02/26/24 18:49:00 EDT, 100 mL/hr, Infuse over 30 minute(s) clopidogrel, 75 mg = 1 tab(s), Tab, Oral, Daily, Routine, Start date 02/27/24 9:00:00 EDT diphenhydrAMINE, 25 mg = 1 cap(s), Cap, Oral, q6hr PRN Itching, Routine, Start date 02/26/24 18:52:00 EDT, 02/26/24 18:52:00 EDT glucose, 50 mL, Soln-IV, IV Push, Once PRN Blood glucose, Routine, Start date 02/26/24 18:56:00 EDT heparin, 5,000 unit(s) = 1 mL, Injection, SubCutaneous, q8hrFT for 30 day(s), Stop date 03/27/24 23:59:00 EDT, Routine, Start date 02/27/24 0:00:00 EDT hydrALAZINE, 10 mg = 0.5 mL, Injection, IV Push, q6hr PRN Other (see comment), Routine, Start date 02/26/24 18:52:00 EDT, 02/26/24 18:52:00 EDT insulin lispro, 0-10 Unit(s), Injection-Insulin, SubCutaneous, QIDACHS, Routine, Start date 02/26/24 21:00:00 EDT magnesium hydroxide, 30 mL, Susp-Oral, Oral, q6hr PRN Constipation, Routine, Start date 02/26/24 18:52:00 EDT morphine, 2 mg = 1 mL, Injection, IV Push, q4hr PRN Pain for 5 day(s), Stop date 03/02/24 18:51:00 EDT, Routine, Start date 02/26/24 18:52:00 EDT, 02/26/24 18: (more content not included)...[facility] HospitalComment on above:Result Comment: Electronically Signed By: KADE MARLOW, Allison\.br\Date and Time Signed: 02/27/24 09:45 [id number] NoteHistory and Physical Chief Complaint To ED for AMS. EMS found STEMI on EKG. EKG sent to ED and STEMI activated per ED physician. Pt onlycomplaint of fatigue on arrival. Denies chest pain. History of Present Illness 78-year-old female with diabetes mellitus type 2, coronary artery disease, chronic kidney disease stage III, peripheral artery disease, ureteral stricture status post stent presented with complaints of generalized weakness, chills, suprapubic pain and change in mental status x 1 day. According to the patient she was in her usual state of health until 1 day ago when she developed chills. Subsequently she was found to the confused and EMS was contacted. She complains of generalized weakness and lower abdominal pain. She denies any burning on urination, she denies any urinary frequency or foul-smelling urine. When EMS got to her house EKG showed features of STEMI and STEMI alert was called. Patient's EKG was reviewed in the emergency room by the community nurse who said the patient was not having any STEMI. She denies any chest pain, shortness of breath. She is being admitted to the hospital with sepsis secondary to suspected urinary tract infection, generalized weakness, acute kidney injury on chronic kidney disease. Review of Systems Constitutional: no fever, moderate chills, no sweats, severe weakness Skin: no Jaundice, no rash, no lesions, nopetechiae ENMT: no ear pain, no sore throat, no congestion, no hoarseness Respiratory: no shortness of breath, no cough, no orthopnea, no wheezing Cardiovascular: no chest pain, no palpitations, no edema Gastrointestinal: no nausea, no vomiting, no diarrhea, no GI bleeding Genitourinary: no dysuria, no hematuria, no discharge, no pain Musculoskeletal: no back pain, no trauma Neurologic: no headache, no dizziness, no numbness, severe weakness Psychiatric: no sleeping problems, no irritability, no mood swings/depression. Heme/Lymph: no bleeding tendency, no bruising tendency, no petechiae, no swollen nodes Allergy/Immunologic: no seasonal allergies, no food allergies, no recurrent infections, no impairedimmunity Additional ROS info: Except as noted in the above Review of Systems and in the History of Present Illness all other systems have been reviewed and are negative or noncontributory. Scoring Physical Exam Vitals & Measurements T: 38 ?C(Oral) HR: 77(Monitored) RR: 18 BP: 137/73 SpO2: 94% HT: 150 cm WT: 76.4 kg General: alert, no acute distress Skin: warm, dry Head: no trauma, normocephalic Neck: Trachea midline, no adenopathy, no tenderness Eye: normal conjunctiva, sclera clear ENMT: TM's clear, oral mucosa moist, no pharyngeal erythema or exudate Cardiovascular: regular rate and rhythm, normal peripheral perfusion Respiratory: Lungs CTA, respirations non labored Chest wall: no deformity. Gastrointestinal: soft, non distended, moderate suprapubic tenderness, no guarding. Bowel sounds intact. Back: No tenderness, Normal ROM, Normal alignment. Extremities: no deformity, no trauma Neurological: oriented x 4, LOC appropriate for age, speech is normal. Reduced strength bilateral lower extremity. Psychiatric: cooperative, affect appropriate for age, normal judgement, normal psychiatric thoughts. Lab Results WBC: 12.8 E9/L High (02/26/24 17:30:00) RBC: 3.4 E12/L Low (02/26/24 17:30:00) HGB: 10.8 gm/dL Low (02/26/24 17:30:00) Hct: 34.4 % (02/26/24 17:30:00) MCV: 99.8 fL (02/26/24 17:30:00) MCH: 31.4 pg (02/26/24 17:30:00) MCHC: 31.5 gm/dL (02/26/24 17:30:00) RDW: 15.8 % High (02/26/24 17:30:00) Platelet: 211 E9/L (02/26/24 17:30:00) MPV: 8.8 fL (02/26/24 17:30:00) Neutro Auto: 82.2 % High (02/26/24 17:30:00) Lymph Auto: 8.4 % Low (02/26/24 17:30:00) Carson Auto: 7.9 % (02/26/24 17:30:00) Eos Auto: 0.5 % (02/26/24 17:30:00) Basophil Auto: 1 % (02/26/24 17:30:00) Neutro Absolute: 10.5 E9/L High (02/26/24 17:30:00) Lymph Absolute: 1.1 E9/L (02/26/24 17:30:00) Carson Absolute: 1 E9/L (02/26/24 17:30:00) Eos Absolute: 0.1 E9/L (02/26/24 17:30:00) Basophil Absolute: 0.1 E9/L (02/26/24:30:00) PT: 12 second(s) (02/26/24:30:00) INR: 1.07 (02/26/24:30:00) PTT: 30.9 second(s) (02/26/24:30:00) Glucose Lvl: 97 mg/dL (02/26/24:30:00) BUN: 39 mg/dL High (02/26/24:30:00) Creatinine: 1.8 mg/dL High (02/26/24:30:00) eGFR: 28 mL/min/1.73 m2 Low (02/26/24:30:00) BUN/Creat Ratio: 22 High (02/26/24:30:00) Sodium Lvl: 133 mmol/L Low (02/26/24:30:00) Potassium Lvl: 4.4 mmol/L (02/26/24:30:00) Chloride: 100 mmol/L Low (02/26/24:30:00) CO2: 26 mmol/L (02/26/24:30:00) AGAP: 11 mEq/L (02/26/24:30:00) Calcium Lvl: 8.7 mg/dL Low (02/26/24:30:00) Troponin HS: 74.9 pg/mL Critical (02/26/24 17:30:00) Diagnostic Results EKG analyzed by me: Sinus rhythm. Nonspecific ST-T segment changes involving the lead III, aVL and ST segment depression in V2?no acute changes compared to old EKG. Chest x-ray reviewed by me: N (more content not included)...[facility] HospitalComment on above:Result Comment: Electronically Signed By: KADE MARLOW, Allison\.br\Date and Time Signed: 02/26/24 19:01 [id number] Hospital Discharge instructions Patient Education 02/10/2024 16:20:39 Hydronephrosis Hydronephrosis Hydronephrosis is the swelling of one or both kidneys due to a blockage that stops urine from flowing out of the body. Kidneys filter waste from the blood and produce urine. This condition can lead to kidney failure and may become life-threatening if not treated promptly. What are the causes? In infants and children, common causes include problems that occur when a baby is developing in thewomb. These can include problems in the kidneys or in the tubes that drain urine into the bladder (ureters). In adults, common causes include: Kidney stones. . A tumor or cyst in the abdomen or pelvis. An enlarged prostate gland. Other causes include: Bladder infection. Scar tissue from a previous surgery or injury. A blood clot. Cancer of the prostate, bladder, uterus, ovary, or colon. What are the signs or symptoms? Symptoms of this condition include: Pain or discomfort in your side (flank) or abdomen. Swelling in your abdomen. Nausea and vomiting. Fever. Pain when passing urine. Feelings of urgency when you need to urinate. Urinating more often than normal. In some cases, you may not have any symptoms. How is this diagnosed? This condition may be diagnosed based on: Your symptoms and medical history. A physical exam. Blood and urine tests. Imaging tests, such as an ultrasound, CT scan, or MRI. A procedure to look at your urinary tract and bladder by inserting a scope into the urethra (cystoscopy). How is this treated? Treatment for this condition depends on where the blockage is, how long it has been there, and whatcaused it. The goal of treatment is to remove the blockage. Treatment may include: Antibiotic medicines to treat or prevent infection. A procedure to place a small, thin tube (stent) into a blocked ureter. The stent will keep the ureter open so that urine can drain through it. A nonsurgical procedure that crushes kidney stones with shock waves (extracorporeal shock wave lithotripsy). If kidney failure occurs, treatment may include dialysis or a kidney transplant. Follow these instructions at home: Take [id number] and prescription medicines only as told by your health care provider. If you were prescribed an antibiotic medicine, take it exactly as told by your health care provider. Do not stop taking the antibiotic even if you start to feel better. Rest and return to your normal activities as told by your health care provider. Ask your health care provider what activities are safe for you. Drink enough fluid to keep your urine pale yellow. Keep all follow-up visits. This is important. Contact a health care provider if: You continue to have symptoms after treatment. You develop new symptoms. Your urine becomes cloudy or bloody. You have a fever. Get help right away if: You have severe flank or abdominal pain. You cannot drink fluids without vomiting. Summary Hydronephrosis is the swelling of one or both kidneys due to a blockage that stops urine from flowing out of the body. Hydronephrosis can lead to kidney failure and may become life-threatening if not treated promptly. The goal of treatment is to remove the blockage. It may include a procedure to insert a stent into a blocked ureter, a procedure to break up kidney stones, or taking antibiotic medicines. Follow your health care provider's instructions for taking care of yourself at home, including instructions about drinking fluids, taking medicines, and limiting activities. This information is not intended to replace advice given to you by your health care provider. Make sure you discuss any questions you have with your health care provider. Document Revised: 10/17/2020 Document Reviewed: 10/17/2020 [employer] Patient Education 2022 [employer]. Follow Up Care 01/26/2024 09:56:54 With:REESE MARLOW, Yaniv Vela, URL Address: [facility] [place] [address]- When: Unknown [facility] [id number] NotePatient Education Urology Hydronephrosis Hydronephrosis is the swelling of one or both kidneys due to a blockage that stops urine from flowing out of the body. Kidneys filter waste from the blood and produce urine. This condition can lead to kidney failure and may become life-threatening if not treated promptly. What are the causes? In infants and children, common causes include problems that occur when a baby is developing in thewomb. These can include problems in the kidneys or in the tubes that drain urine into the bladder (ureters). In adults, common causes include: ? Kidney stones. ? . ? A tumor or cyst in the abdomen or pelvis. ? An enlarged prostate gland. Other causes include: ? Bladder infection. ? Scar tissue from a previous surgery or injury. ? A blood clot. ? Cancer of the prostate, bladder, uterus, ovary, or colon. What are the signs or symptoms? Symptoms of this condition include: ? Pain or discomfort in your side (flank) or abdomen. ? Swelling in your abdomen. ? Nausea and vomiting. ? Fever. ? Pain when passing urine. ? Feelings of urgency when you need to urinate. ? Urinating more often than normal. In some cases, you may not have any symptoms. How is this diagnosed? This condition may be diagnosed based on: ? Your symptoms and medical history. ? A physical exam. ? Blood and urine tests. ? Imaging tests, such as an ultrasound, CT scan, or MRI. ? A procedure to look at your urinary tract and bladder by inserting a scope into the urethra (cystoscopy). How is this treated? Treatment for this condition depends on where the blockage is, how long it has been there, and whatcaused it. The goal of treatment is to remove the blockage. Treatment may include: ? Antibiotic medicines to treat or prevent infection. ? A procedure to place a small, thin tube (stent) into a blocked ureter. The stent will keep the ureter open so that urine can drain through it. ? A nonsurgical procedure that crushes kidney stones with shock waves (extracorporeal shock wave lithotripsy). ? If kidney failure occurs, treatment may include dialysis or a kidney transplant. Follow these instructions at home: ? Take zzhx-ljq-elenule and prescription medicines only as told by your health care provider. ? If you were prescribed an antibiotic medicine, take it exactly as told by your health care provider. Do not stop taking the antibiotic even if you start to feel better. ? Rest and return to your normal activities as told by your health care provider. Ask your health care provider what activities are safe for you. ? Drink enough fluid to keep your urine pale yellow. ? Keep all follow-up visits. This is important. Contact a health care provider if: ? You continue to have symptoms after treatment. ? You develop new symptoms. ? Your urine becomes cloudy or bloody. ? You have a fever. Get help right away if: ? You have severe flank or abdominal pain. ? You cannot drink fluids without vomiting. Summary ? Hydronephrosis is the swelling of one or both kidneys due to a blockage that stops urine from flowing out of the body. ? Hydronephrosis can lead to kidney failure and may become life-threatening if not treated promptly. ? The goal of treatment is to remove the blockage. It may include a procedure to insert a stent into a blocked ureter, a procedure to break up kidney stones, or taking antibiotic medicines. ? Follow your health care provider's instructions for taking care of yourself at home, including instructions about drinking fluids, taking medicines, and limiting activities. This information is not intended to replace advice given to you by your health care provider. Make sure you discuss any questions you have with your health care provider. Document Revised: 10/17/2020 Document Reviewed: 10/17/2020 [employer] Patient Education ? 2022 [employer].[facility] 01-25-2024 Progress note Author [facility] January 25, 2024 11:30am Note Date/Time January 25, 2024 11:3 1am [facility] [address] [place] [address] Nephrology Progress Note Signed Patient: Lexi Tatum MR#: [id number] : 1945 Acct:[id number] Age/Sex: 78 / F Adm Date: 4 Loc: Room: [address] [place] [address] Type: ADM IN Attending Dr: Norberto Pires DO Copies to: ~ Date of Service: 01/25/2024 Subjective Subjective Narrative: Patient is a 78-year-old female with medical history significant for CKD stage IV, DM, HTN, PAD, anemia, CAD, and gout. She presented to the ER after renal ultrasound showed bilateral hydronephrosis and hydroureter. She was seen by 01/12/2024 for evaluation of CKD and presurgical clearance for orthopedic surgery. Preliminary workup for CKD including renal ultrasound showed bilateral hydronephrosis. Is not aware of any kidney stones or obstructive uropathy in the past. She was told to go to the emergency department for further evaluation. She had CT scan of the abdomen in the ER without contrast that confirmed bilateral hydronephrosis and hydroureter up to the renal pelvis. Urology was consulted and the patient is scheduled for cystoscopy this afternoon. Creatinine on admit was 2.02 mg/dL slightly higher than baseline creatinine is 1.5 to 1.8 mg/dL. Hemoglobin was 11.8 g/dL. Urinalysis reveals 1+ leukocyte Estrace and cultures pending. I was consulted for management of CKD. Patient was started on IV fluid normal saline 100 cc/h. She is currently n.p.o. for procedure that scheduled this afternoon. Interval history: Patient had cystoscopy and bilateral stent placement by urology on 01/23. She has a narrowing of the ureters proximally however there is no intraureteral pathology. Patient is doing well and she is willing to go home. Blood pressure was elevated yesterday so IV fluid was stopped. Blood pressure still on the high range. She did receive IV furosemide yesterday. Patient has been with catheter with bloody urine in the container however it is not clear if hematuria has cleared up. Hemoglobin slightly down to 9.8 g/dL. Renal function stable with creatinine 1.8 mg/dL Exam Physical Exam Vital Signs: Temp Pulse Resp BP Pulse Ox O2 Del Method O2 Flow Rate 37.2 C 76 18 132/74 92 L Room Air 2 01/25/24 08:00 01/25/24 08:00 01/25/24 08:00 01/25/24 08:00 01/25/24 08:00 01/25/24 08:00 01/24/24 12:17 Narrative: General: Comfortable in bed. No acute distress HEENT: Normocephalic, atraumatic. No jaundice, [place]. Moist mucous membrane Cardiovascular: Regular rate and rhythm, no murmurs. No JVD Respiratory: Good bilateral air entry, no wheezes. Normal respiratory effort Abdominal: Nondistended, nontender. Bowel sounds present Extremity: +1 bilateral edema. No cyanosis Neuro: Awake, alert, oriented x 3 Psychiatric: Cooperative. Normal mood and affect Objective Intake and Output I&O: Intake & Output 01/22/24 01/23/24 01/24/24 01/25/24 23:59 23:59 23:59 23:59 Intake Total 1250 / 1250 2530 / 2530 1550 / 1550 240 / 240 Output Total 700 / 700 600 / 600 Balance 1250 / 1250 2530 / 2530 850 / 850 -360 / -360 Weight 77.4 kg 77.6 kg 78.5 kg 80 kg Meds and Allergies Meds: Active Medications Acetaminophen (Acetaminophen 325 Mg Tablet) 650 mg PO Q6HR PRN PRN Reason: Pain Scale 1 - 3 or fever Stop: 01/21/25 18:58 Last Admin: 01/23/24 20:10 Dose: 650 mg Allopurinol (Allopurinol 300 Mg Tablet) 300 mg PO DAILY REBA Stop: 01/22/25 08:59 Last Admin: 01/25/24 08:29 Dose: 300 mg Atorvastatin Calcium (Atorvastatin 10 Mg Tablet) 10 mg PO QHS REBA Stop: 01/21/25 21:59 Last Admin: 01/24/24 21:12 Dose: 10 mg Carvedilol (Carvedilol 25 Mg Tablet) 25 mg PO BID.WITH.[facility]ALS [facility] Stop: 01/21/25 19:04 Last Admin: 01/25/24 08:29 Dose: 25 mg Dextrose (Dextrose 50% In Water 25 Gm/50 Ml Syringe) 0 gm IV-PUSH PRN PRN PRN Reason: Hypoglycemia Stop: 01/21/25 18:58 Docusate Sodium (Docusate 100 Mg Capsule) 100 mg PO BID [facility] Stop: 01/21/25 20:59 Last Admin: 01/25/24 08:30 Dose: 100 mg Furosemide (Furosemide 40 Mg Tablet) 40 mg PO DAILY.8A [facility] Stop: 01/25/25 07:59 Gabapentin (Gabapentin 300 Mg Capsule) 300 mg PO BID [facility] Stop: 01/21/25 20:59 Last Admin: 01/25/24 08:29 Dose: 300 mg Glucose (Dextrose 40% Gel 15 Gm Tube) 0 gm PO PRN PRN PRN Reason: Hypoglycemia Stop: 01/21/25 18:58 Heparin Sodium (Porcine) (Heparin 5,000 Unit/Ml Vial) 5,000 unit SUBCUT Q12HR [facility] Stop: 01/22/25 20:59 Last Admin: 01/24/24 09:07 Dose: 5,000 unit Hydralazine HCl (Hydralazine 20 Mg/Ml Vial) 10 mg IV-PUSH Q4H PRN PRN Reason: Hypertension Stop: 01/21/25 18:58 Insulin Aspart (Insulin Aspart 300 Units/3 Ml Insuln.Pen) 0 units SUBCUT TID.WM.[facility]; Protocol Stop: 01/21/25 21:59 Last Admin: 01/25/24 08:30 Dose: Not Given Insulin Glargine (Insulin Glargine 300 Units/3 Ml Insuln.Pen) 50 units SUBCUT QPM [facility] Stop: 01/23/25 20:59 Last Admin: 01/24/24 21:12 Dose: 50 units Magnesium Hydroxide (Magnesium Hydroxide Susp 30 Ml Udc) 30 ml PO BID PRN PRN Reason: Constipation Stop: 01/21/25 18:58 Metoprolol Tartrate (Metoprolol Tartrate 5 Mg/5 Ml Vial) 5 mg IV-PUSH Q4H PRN PRN Reason: Blood Pressure Stop: 01/21/25 18:58 Oxybutynin Chloride (Oxybutynin Chloride 5 Mg Tab.Er.24) 15 mg PO DAILY REBA Stop: 01/22/25 08:59 Last Admin: 01/25/24 08:29 Dose: 15 mg Potassium Chloride (Potassium Chloride Er 10 Meq Capsule.Er) 10 meq PO DAILY REBA Stop: 01/22/25 08:59 Last Admin: 01/25/24 08:29 Dose: 10 meq Sodium Chloride (Sodium Chloride 0.9 % 10 Ml Syringe) 0 ml IV-PUSH PRN PRN PRN Reason: Flush Stop: 01/21/25 11:53 Last Admin: 01/22/24 17:30 Dose: 10 ml Sodium Chloride (Sodium Chloride 0.9 % 10 Ml Syringe) 0 ml IV-PUSH PRN PRN PRN Reason: Flush Stop: 01/22/25 14:03 Allergies blue dye Allergy (Intermediate, Verified 01/23/24 14:49) Nausea adhesive tape Allergy (Unknown, Verified 01/23/24 14:49) rash Results - Nephrology Labs 01/25/24 06:07 01/25/24 05:00 Labs: 01/25/24 05:00 BUN 25 Creatinine 1.80 H Radiology Impressions Impressions - last 24 hours: Any impression(s) listed above is documentation that was entered by the reading physician into a diagnostic report(s) for Lexi Tatum. I have reviewed the report(s) and am incorporating any findings in the treatment plan of this patient where applicable. A&P - Nephrology Assessment/Plan (1) Bilateral hydronephrosis: Plan: Bilateral hydronephrosis found incidentally on ultrasound during outpatient nephrology visit with Dr. Ashby 01/12/2024. This was confirmed with abdominal CT in emergency department 01/22/2024. Urology will be doing cystoscopy with possible stent placement (2) CKD (chronic kidney disease) stage 4, GFR 15-29 ml/min: Plan: Patient has longstanding CKD most likely due to DM and HTN. Baseline creatinine1.5 to 1.8 mg/dL. Creatinine on admission was 2.02 mg/dL and has continued decreased to 1.85 mg/dL today with hydration. Blood pressure is normal. (3) Hypertensive chronic kidney disease with stage 1 through stage 4 chronic kidney disease, or unspecified chronic kidney disease: Plan: Has chronic hypertension. Most recent blood pressure 134/359. (4) Type 2 diabetes mellitus with diabetic chronic kidney disease: Plan: Has type II DM. Patient most recent hemoglobin A1c was 7.4%. Blood glucose being managed by hospitalist team. (5) Anemia of renal disease: Plan: Patient has history of anemia from renal disease. Hemoglobin 12/06/2023 was 9.5.Hemoglobin is 10.3 mg/dL today. She continues to take oral iron. Vitamin B12 and folate were within normal limits 12/06/2019. (6) History of coronary artery bypass graft: Plan: Patient has a history of open heart surgery in 2017. (7) History of CHF (congestive heart failure): Plan: Patient has history of CHF and takes furosemide 40 mg daily. She is euvolemic at this time and will hold diuretic until after procedure. Plan * Patient had cystoscopy with bilateral ureteral stents as stated above. She has hematuria after procedure that is expected. She takes Plavix at home that is currently on hold. She stated that hematuria is clearing up. Hemoglobin started down to 9.7 g/dL. With the patient void by herself and see if urine is clearing up. She can go back on Plavix once hematuria resolves. * Restart home oral furosemide 40 mg daily. No need for IV diuretics. * Will check voided urine to ensure that she does not have more hematuria. Documented By: Gita Azevedo MD 01/25/24 1127 Signed By: <Electronically signed by MD Gita Azevedo> 01/25/24 3090 [facility] Work Phone: [phone]) 298-651007-13-2024 Progress note Author Norberto Pires [facility] January 24, 2024 2:31pm Note Date/Time January 24, 2024 2:25 pm [facility] [address] [place] [address] Hospitalist Progress Note Signed Patient: Lexi Tatum MR#: [id number] : 1945 Acct:[id number] Age/Sex: 78 / F Adm Date: 4 Loc: 3T Room: [address] [place] [address] Type: ADM IN Attending Dr: Norberto Pires DO Copies to: ~ Date of Service: 01/24/2024 Subjective Subjective Narrative: Overnight the patient did develop hematuria. This never had any clots. She hasnot had any difficulty voiding urine. Her beet colored urine was collected in the [email or web address] collection system. Just before my visit with the patient she had ambulated to the toilet. The nurse collected some of the urine and a specimen cup. It has been colored. I do not see any clots. I discussed the case during the daytime with Dr. Azevedo. During the daytime today she has developed hypoxia and nursing staff and put aubrey supplemental oxygen. The patient says that she feels bloated from not havingher Lasix for the last few days. Exam Physical Exam Vital Signs: Temp Pulse Resp BP Pulse Ox O2 Del Method O2 Flow Rate 97.9 F 96 17 160/80 H 92 L Nasal Cannula 2 01/24/24 12:17 01/24/24 12:17 01/24/24 12:17 01/24/24 12:17 01/24/24 12:17 01/24/24 12:17 01/24/24 12:17 Narrative: GEN: She is awake and alert and very conversant today. Lungs: Clear to auscultation bilaterally, no wheezing, no crackles. Heart: Regular rate and rhythm, no murmurs, rubs, or gallops. Abdomen: Soft, normal bowel sounds, no rigidity, guarding, or acute peritoneal signs. Extremities: No swelling or cords in the calves bilaterally, no edema in the ankles bilaterally. Objective Lab Results 01/24/24 05:58 01/24/24 05:58 Microbiology Results Microbiology 01/22/24 15:18 Urine - Clean-Voided Midstream Urine Culture - Final Meds Allergies and Active Meds Allergies blue dye Allergy (Intermediate, Verified 01/23/24 14:49) Nausea adhesive tape Allergy (Unknown, Verified 01/23/24 14:49) rash Active Meds: Active Medications Generic Name Dose Route Start Last Admin Trade Name Freq PRN Reason Stop Dose Admin Acetaminophen 650 mg 01/22/24 18:59 01/23/24 20:10 Acetaminophen 325 Mg Tablet PO 01/21/25 18:58 650 mg Q6HR PRN Administration Pain Scale 1 - 3 or fever Allopurinol 300 mg 01/23/24 09:00 01/24/24 09:08 Allopurinol 300 Mg Tablet PO 01/22/25 08:59 300 mg DAILY REBA Administration Atorvastatin Calcium 10 mg 01/22/24 22:00 01/23/24 22:43 Atorvastatin 10 Mg Tablet PO 01/21/25 21:59 Not Given QHS REBA Carvedilol 25 mg 01/22/24 19:05 01/24/24 09:08 Carvedilol 25 Mg Tablet PO 01/21/25 19:04 25 mg BID.WITH.MEALS REBA Administration Dextrose 0 gm 01/22/24 18:59 Dextrose 50% In Water 25 Gm/50 Ml Syringe IV-PUSH 01/21/25 18:58 PRN PRN Hypoglycemia Docusate Sodium 100 mg 01/22/24 21:00 01/24/24 09:08 Docusate 100 Mg Capsule PO 01/21/25 20:59 100 mg BID REBA Administration Furosemide 40 mg 01/24/24 13:15 Furosemide 40 Mg/4 Ml Vial IV-PUSH 01/23/25 13:14 DAILY.8A REBA Gabapentin 300 mg 01/22/24 21:00 01/24/24 09:08 Gabapentin 300 Mg Capsule PO 01/21/25 20:59 300 mg BID REBA Administration Glucose 0 gm 01/22/24 18:59 Dextrose 40% Gel 15 Gm Tube PO 01/21/25 18:58 PRN PRN Hypoglycemia Heparin Sodium (Porcine) 5,000 unit 01/23/24 21:00 01/24/24 09:07 Heparin 5,000 Unit/Ml Vial SUBCUT 01/22/25 20:59 5,000 unit Q12HR REBA Administration Hydralazine HCl 10 mg 01/22/24 18:59 Hydralazine 20 Mg/Ml Vial IV-PUSH 01/21/25 18:58 Q4H PRN Hypertension Insulin Aspart 0 units 01/22/24 22:00 01/24/24 12:21 Insulin Aspart 300 Units/3 Ml Insuln.Pen SUBCUT 01/21/25 21:59 4 units TID.WM.HS REBA Administration Protocol Insulin Glargine 50 units 01/24/24 21:00 Insulin Glargine 300 Units/3 Ml Insuln.Pen SUBCUT 01/23/25 20:59 QPM REBA Magnesium Hydroxide 30 ml 01/22/24 18:59 Magnesium Hydroxide Susp 30 Ml Udc PO 01/21/25 18:58 BID PRN Constipation Metoprolol Tartrate 5 mg 01/22/24 18:59 Metoprolol Tartrate 5 Mg/5 Ml Vial IV-PUSH 01/21/25 18:58 Q4H PRN Blood Pressure Oxybutynin Chloride 15 mg 01/23/24 09:00 01/24/24 09:08 Oxybutynin Chloride 5 Mg Tab.Er.24 PO 01/22/25 08:59 15 mg DAILY REBA Administration Potassium Chloride 10 meq 01/23/24 09:00 01/24/24 09:08 Potassium Chloride Er 10 Meq Capsule.Er PO 01/22/25 08:59 10 meq DAILY REBA Administration Sodium Chloride 0 ml 01/22/24 11:54 01/22/24 17:30 Sodium Chloride 0.9 % 10 Ml Syringe IV-PUSH 01/21/25 11:53 10 ml PRN PRN Administration Flush Sodium Chloride 0 ml 01/23/24 14:04 Sodium Chloride 0.9 % 10 Ml Syringe IV-PUSH 01/22/25 14:03 PRN PRN Flush A&P - Hospitalist Assessment/Plan (1) Bilateral hydronephrosis: (2) Urinary obstruction, unspecified: (3) Acute kidney injury: (4) Type 2 diabetes mellitus with hyperglycemia: (5) Hyperlipidemia: (6) Hypertension: (7) PAD (peripheral artery disease): (8) CAD (coronary artery disease): Plan Status: Bilateral hydronephrosis, due to: likely external compression of both ureters, treated with: Bilateral ureter stents late this afternoon (01/23/24.) Acute Kidney Injury. In-hospital development of hematuria. Longstanding problems: Diabetes mellitus type 2. Anemia. Peripheral arterial disease Coronary disease. History of aortic graft. Plan: The patient is likely to have prolonged hematuria from her bilateral stent placement due to the use of aspirin and Plavix at home. I will administer Lasix given by the IV route today and gentle IV fluids to see if we can improve her creatinine level. The patient may be suitable for discharge in 24 hours or even later at 48 hours once hematuria is slowing down, otherwise she risks having obstructive bladder outlet if she has any hematuria with clots at home. Documented By: Norberto Pires DO 1423 Signed By: <Electronically signed by Norberto Pires DO> 01/24/24 1431 [facility] Work Phone: [phone]) 584-667207-13-2024 Progress note Author Gita Azevedo [facility] January 24, 2024 12:21pm Note Date/Time January 24, 2024 12:2 2pm [facility] [address] [place] [address] Nephrology Progress Note Signed Patient: Lexi Tatum MR#: [id number] : 1945 Acct:[id number] Age/Sex: 78 / F Adm Date: 4 Loc: Room: [address] [place] [address] Type: ADM IN Attending Dr: Norberto Pires DO Copies to: ~ Date of Service: 01/24/2024 Subjective Subjective Narrative: Patient is a 78-year-old female with medical history significant for CKD stage IV, DM, HTN, PAD, anemia, CAD, and gout. She presented to the ER after renal ultrasound showed bilateral hydronephrosis and hydroureter. She was seen by 01/12/2024 for evaluation of CKD and presurgical clearance for orthopedic surgery. Preliminary workup for CKD including renal ultrasound showed bilateral hydronephrosis. Is not aware of any kidney stones or obstructive uropathy in the past. She was told to go to the emergency department for further evaluation. She had CT scan of the abdomen in the ER without contrast that confirmed bilateral hydronephrosis and hydroureter up to the renal pelvis. Urology was consulted and the patient is scheduled for cystoscopy this afternoon. Creatinine on admit was 2.02 mg/dL slightly higher than baseline creatinine is 1.5 to 1.8 mg/dL. Hemoglobin was 11.8 g/dL. Urinalysis reveals 1+ leukocyte Estrace and cultures pending. I was consulted for management of CKD. Patient was started on IV fluid normal saline 100 cc/h. She is currently n.p.o. for procedure that scheduled this afternoon. Interval history: Patient had cystoscopy and bilateral stent placement by urology yesterday. She has a narrowing of the ureters proximally however there is no intraureteral pathology. There is a possibility of compression of ureters from outside. CT scan of the abdomen did not reveal any masses or lesions. Patient is up in the bed. Blood pressure stable 140s to 150s systolic. She hasmild edema. She had hematuria with the collected urine with bladder catheter. Patient stated that the urine is clearing up. Creatinine slightly down to 1.78 mg/dL. BUN 26. No hyperkalemia or acidosis. Exam Physical Exam Vital Signs: Temp Pulse Resp BP Pulse Ox O2 Del Method O2 Flow Rate 36.6 C 76 20 152/82 H 91 L Nasal Cannula 2 01/24/24 08:00 01/24/24 08:00 01/24/24 08:00 01/24/24 08:00 01/24/24 08:00 01/24/24 08:39 01/24/24 08:39 Narrative: General: Comfortable in bed. No acute distress HEENT: Normocephalic, atraumatic. No jaundice, [place]. Moist mucous membrane Cardiovascular: Regular rate and rhythm, no murmurs. No JVD Respiratory: Good bilateral air entry, no wheezes. Normal respiratory effort Abdominal: Nondistended, nontender. Bowel sounds present Extremity: +1 bilateral edema. No cyanosis Musculoskeletal: No swelling of large joints Neuro: Awake, alert, oriented x 3 Psychiatric: Cooperative. Normal mood and affect Objective Intake and Output I&O: Intake & Output 01/21/24 01/22/24 01/23/24 01/24/24 23:59 23:59 23:59 23:59 Intake Total 1250 / 1250 2530 / 2530 200 / 200 Output Total 300 / 300 Balance 1250 / 1250 2530 / 2530 -100 / -100 Weight 77.4 kg 77.6 kg 78.5 kg Meds and Allergies Meds: Active Medications Acetaminophen (Acetaminophen 325 Mg Tablet) 650 mg PO Q6HR PRN PRN Reason: Pain Scale 1 - 3 or fever Stop: 01/21/25 18:58 Last Admin: 01/23/24 20:10 Dose: 650 mg Allopurinol (Allopurinol 300 Mg Tablet) 300 mg PO DAILY [facility] Stop: 01/22/25 08:59 Last Admin: 01/24/24 09:08 Dose: 300 mg Atorvastatin Calcium (Atorvastatin 10 Mg Tablet) 10 mg PO QHS [facility] Stop: 01/21/25 21:59 Last Admin: 01/23/24 22:43 Dose: Not Given Carvedilol (Carvedilol 25 Mg Tablet) 25 mg PO BID.WITH.MEALS [facility] Stop: 01/21/25 19:04 Last Admin: 01/24/24 09:08 Dose: 25 mg Dextrose (Dextrose 50% In Water 25 Gm/50 Ml Syringe) 0 gm IV-PUSH PRN PRN PRN Reason: Hypoglycemia Stop: 01/21/25 18:58 Docusate Sodium (Docusate 100 Mg Capsule) 100 mg PO BID [facility] Stop: 01/21/25 20:59 Last Admin: 01/24/24 09:08 Dose: 100 mg Gabapentin (Gabapentin 300 Mg Capsule) 300 mg PO BID [facility] Stop: 01/21/25 20:59 Last Admin: 01/24/24 09:08 Dose: 300 mg Glucose (Dextrose 40% Gel 15 Gm Tube) 0 gm PO PRN PRN PRN Reason: Hypoglycemia Stop: 01/21/25 18:58 Heparin Sodium (Porcine) (Heparin 5,000 Unit/Ml Vial) 5,000 unit SUBCUT Q12HR [facility] Stop: 01/22/25 20:59 Last Admin: 01/24/24 09:07 Dose: 5,000 unit Hydralazine HCl (Hydralazine 20 Mg/Ml Vial) 10 mg IV-PUSH Q4H PRN PRN Reason: Hypertension Stop: 01/21/25 18:58 Sodium Chloride (0.9% Sodium Chloride 1,000 Ml) 1,000 mls @ 75 mls/hr IV .[id number] [facility] Stop: 01/21/25 18:59 Last Admin: 01/23/24 20:12 Dose: 100 mls/hr Insulin Aspart (Insulin Aspart 300 Units/3 Ml Insuln.Pen) 0 units SUBCUT TID.WM.[facility]; Protocol Stop: 01/21/25 21:59 Last Admin: 01/24/24 09:09 Dose: 3 units Insulin Glargine (Insulin Glargine 300 Units/3 Ml Insuln.Pen) 25 units SUBCUT QPM REBA Stop: 01/21/25 20:59 Last Admin: 01/23/24 22:52 Dose: 25 units Magnesium Hydroxide (Magnesium Hydroxide Susp 30 Ml Udc) 30 ml PO BID PRN PRN Reason: Constipation Stop: 01/21/25 18:58 Metoprolol Tartrate (Metoprolol Tartrate 5 Mg/5 Ml Vial) 5 mg IV-PUSH Q4H PRN PRN Reason: Blood Pressure Stop: 01/21/25 18:58 Oxybutynin Chloride (Oxybutynin Chloride 5 Mg Tab.Er.24) 15 mg PO DAILY REBA Stop: 01/22/25 08:59 Last Admin: 01/24/24 09:08 Dose: 15 mg Potassium Chloride (Potassium Chloride Er 10 Meq Capsule.Er) 10 meq PO DAILY REBA Stop: 01/22/25 08:59 Last Admin: 01/24/24 09:08 Dose: 10 meq Sodium Chloride (Sodium Chloride 0.9 % 10 Ml Syringe) 0 ml IV-PUSH PRN PRN PRN Reason: Flush Stop: 01/21/25 11:53 Last Admin: 01/22/24 17:30 Dose: 10 ml Sodium Chloride (Sodium Chloride 0.9 % 10 Ml Syringe) 0 ml IV-PUSH PRN PRN PRN Reason: Flush Stop: 01/22/25 14:03 Allergies blue dye Allergy (Intermediate, Verified 01/23/24 14:49) Nausea adhesive tape Allergy (Unknown, Verified 01/23/24 14:49) rash Results - Nephrology Labs 01/24/24 05:58 01/24/24 05:58 Labs: 01/24/24 05:58 BUN 26 H Creatinine 1.78 H Albumin 3.2 L Radiology Impressions Impressions - last 24 hours: Impressions Urethrocystography Retrograde X-Ray 01/23/24 16:00 IMPRESSION: Intraoperative views demonstrate bilateral hydronephrosis with narrowing of the proximal ureter on the right in the mid ureter on the left focally. Images demonstrate bilateral ureteral stent placement. Impression dictated by: Rhett Ponce M.D.01/23/2024 7:31 PM Dictation Location: [place] [address] Any impression(s) listed above is documentation that was entered by the reading physician into a diagnostic report(s) for Lexi Tatum. I have reviewed the report(s) and am incorporating any findings in the treatment plan of this patient where applicable. A&P - Nephrology Assessment/Plan (1) Bilateral hydronephrosis: Plan: Bilateral hydronephrosis found incidentally on ultrasound during outpatient nephrology visit with Dr. Ashby 01/12/2024. This was confirmed with abdominal CT in emergency department 01/22/2024. Urology will be doing cystoscopy with possible stent placement (2) CKD (chronic kidney disease) stage 4, GFR 15-29 ml/min: Plan: Patient has longstanding CKD most likely due to DM and HTN. Baseline creatinine1.5 to 1.8 mg/dL. Creatinine on admission was 2.02 mg/dL and has continued decreased to 1.85 mg/dL today with hydration. Blood pressure is normal. (3) Hypertensive chronic kidney disease with stage 1 through stage 4 chronic kidney disease, or unspecified chronic kidney disease: Plan: Has chronic hypertension. Most recent blood pressure 134/359. (4) Type 2 diabetes mellitus with diabetic chronic kidney disease: Plan: Has type II DM. Patient most recent hemoglobin A1c was 7.4%. Blood glucose being managed by hospitalist team. (5) Anemia of renal disease: Plan: Patient has history of anemia from renal disease. Hemoglobin 12/06/2023 was 9.5.Hemoglobin is 10.3 mg/dL today. She continues to take oral iron. Vitamin B12 and folate were within normal limits 12/06/2019. (6) History of coronary artery bypass graft: Plan: Patient has a history of open heart surgery in 2017. (7) History of CHF (congestive heart failure): Plan: Patient has history of CHF and takes furosemide 40 mg daily. She is euvolemic at this time and will hold diuretic until after procedure. Plan * Patient had cystoscopy with bilateral ureteral stents as stated above. She has hematuria after procedure that is expected. She takes Plavix at home that is currently on hold.. She stated that hematuria is clearing up. Hemoglobin stable 10.1 g/dL. Renal function slowly improving and possibly at baseline. * I will stop IV fluid at the patient is able to eat and drink. Blood pressure is mild elevated with edema Patient is eager to go home. She can be discharged from [facility] if okay with urology. She still has hematuria however it is clearing up and hemoglobin is stable with stable blood pressure. She need to follow-up with urology as outpatient for further evaluation of ureteral compression. Documented By: Gita Azevedo MD 01/24/24 1215 Signed By: <Electronically signed by MD Gita Azevedo> 01/24/24 1221 [facility] Work Phone: 1([phone]) 242-851307-12-2024 Progress note Author Norberto Pires [facility] January 23, 2024 6:51pm Note Date/Time January 23, 2024 6:40 pm [facility] [address] [place] [address] Hospitalist Progress Note Signed Patient: Lexi Tatum MR#: [id number] : 1945 Acct:[id number] Age/Sex: 78 / F Adm Date: 4 Loc: Room: [address] [place] [address] Type: ADM IN Attending Dr: Norberto Pires DO Copies to: ~ Date of Service: 01/23/2024 Subjective Subjective Narrative: The patient has just returned from the operating room where she underwent cystoscopy, bilateral retrograde pyelograms, and bilateral double-J stent placement under fluoroscopic guidance. The intraoperative impression was that there was external compression to both ureters that was causing the problem. No stone or other specific blockage was found. The patient is still moderately groggy from the anesthesia. She did not know the results of the procedure. I told her of the results as I had read them earlier as dictated by Dr. Natarajan. The patient indicates that her is justgone home. She denies any abdominal pain. She denies any burning or dysuria passing the urine. He has a good amount of urine being collected in the pure [employer] collection system with no evidence of blood. Exam Physical Exam Vital Signs: Temp Pulse Resp BP Pulse Ox O2 Del Method O2 Flow Rate 97.7 F 76 16 120/53 L 94 L Room Air 10 01/23/24 18:20 01/23/24 18:20 01/23/24 18:20 01/23/24 18:20 01/23/24 18:20 01/23/24 18:20 01/23/24 17:30 Narrative: GEN: Moderately groggy after the anesthesia today. Lungs: Clear to auscultation bilaterally, no wheezing, no crackles. Heart: Regular rate and rhythm, no murmurs, rubs, or gallops. Abdomen: Soft, normal bowel sounds, no rigidity, guarding, or acute peritoneal signs. Extremities: No swelling or cords in the calves bilaterally, no edema in the ankles bilaterally. Objective Lab Results 01/23/24 06:19 01/23/24 06:19 Microbiology Results Microbiology 01/22/24 15:18 Urine - Clean-Voided Midstream Urine Culture - Preliminary Meds Allergies and Active Meds Allergies blue dye Allergy (Intermediate, Verified 01/23/24 14:49) Nausea adhesive tape Allergy (Unknown, Verified 01/23/24 14:49) rash Active Meds: Active Medications Generic Name Dose Route Start Last Admin Trade Name Freq PRN Reason Stop Dose Admin Acetaminophen 650 mg 01/22/24 18:59 01/22/24 22:55 Acetaminophen 325 Mg Tablet PO 01/21/25 18:58 650 mg Q6HR PRN Administration Pain Scale 1 - 3 or fever Allopurinol 300 mg 01/23/24 09:00 01/23/24 07:59 Allopurinol 300 Mg Tablet PO 01/22/25 08:59 300 mg DAILY REBA Administration Atorvastatin Calcium 10 mg 01/22/24 22:00 01/22/24 22:52 Atorvastatin 10 Mg Tablet PO 01/21/25 21:59 10 mg QHS REBA Administration Carvedilol 25 mg 01/22/24 19:05 01/23/24 18:21 Carvedilol 25 Mg Tablet PO 01/21/25 19:04 Not Given BID.WITH.MEALS REBA Dextrose 0 gm 01/22/24 18:59 Dextrose 50% In Water 25 Gm/50 Ml Syringe IV-PUSH 01/21/25 18:58 PRN PRN Hypoglycemia Docusate Sodium 100 mg 01/22/24 21:00 01/23/24 14:04 Docusate 100 Mg Capsule PO 01/21/25 20:59 Not Given BID REBA Gabapentin 300 mg 01/22/24 21:00 01/23/24 07:59 Gabapentin 300 Mg Capsule PO 01/21/25 20:59 300 mg BID REBA Administration Glucose 0 gm 01/22/24 18:59 Dextrose 40% Gel 15 Gm Tube PO 01/21/25 18:58 PRN PRN Hypoglycemia Hydralazine HCl 10 mg 01/22/24 18:59 Hydralazine 20 Mg/Ml Vial IV-PUSH 01/21/25 18:58 Q4H PRN Hypertension Hydromorphone HCl 0.5 mg 01/23/24 16:25 Hydromorphone 0.5 Mg/0.5 Ml Syringe IV-PUSH 01/23/24 19:25 Q5M PRN Pain Sodium Chloride 1,000 mls @ 75 mls/hr 01/22/24 19:00 01/23/24 10:00 0.9% Sodium Chloride 1,000 Ml IV 01/21/25 18:59 100 mls/hr .[id number] REBA Administration Lactated Ringer's 1,000 mls @ 20 mls/hr 01/23/24 14:04 01/23/24 18:21 Lactated Ringers IV 01/24/24 14:03 Not Given .Q24H ONE Insulin Aspart 0 units 01/22/24 22:00 01/23/24 18:21 Insulin Aspart 300 Units/3 Ml Insuln.Pen SUBCUT 01/21/25 21:59 Not Given TID.WM.HS REBA Protocol Insulin Glargine 25 units 01/22/24 21:00 01/22/24 23:25 Insulin Glargine 300 Units/3 Ml Insuln.Pen SUBCUT 01/21/25 20:59 Not Given QPM REBA Magnesium Hydroxide 30 ml 01/22/24 18:59 Magnesium Hydroxide Susp 30 Ml Udc PO 01/21/25 18:58 BID PRN Constipation Metoprolol Tartrate 5 mg 01/22/24 18:59 Metoprolol Tartrate 5 Mg/5 Ml Vial IV-PUSH 01/21/25 18:58 Q4H PRN Blood Pressure Ondansetron HCl 4 mg 01/23/24 16:25 Ondansetron 4 Mg/2 Ml Vial IV-PUSH 01/23/24 19:25 ONCE PRN Nausea/Vomiting Oxybutynin Chloride 15 mg 01/23/24 09:00 01/23/24 07:59 Oxybutynin Chloride 5 Mg Tab.Er.24 PO 01/22/25 08:59 15 mg DAILY REBA Administration Potassium Chloride 10 meq 01/23/24 09:00 01/23/24 07:59 Potassium Chloride Er 10 Meq Capsule.Er PO 01/22/25 08:59 10 meq DAILY REBA Administration Sodium Chloride 0 ml 01/22/24 11:54 01/22/24 17:30 Sodium Chloride 0.9 % 10 Ml Syringe IV-PUSH 01/21/25 11:53 10 ml PRN PRN Administration Flush Sodium Chloride 0 ml 01/23/24 14:04 Sodium Chloride 0.9 % 10 Ml Syringe IV-PUSH 01/22/25 14:03 PRN PRN Flush A&P - Hospitalist Assessment/Plan (1) Bilateral hydronephrosis: (2) Urinary obstruction, unspecified: (3) Acute kidney injury: (4) Type 2 diabetes mellitus with hyperglycemia: (5) Hyperlipidemia: (6) Hypertension: (7) PAD (peripheral artery disease): (8) CAD (coronary artery disease): Plan Status: Bilateral hydronephrosis, due to: likely external compression of both ureters, treated with: Bilateral ureter stents late this afternoon (01/23/24.) Acute Kidney Injury. Longstanding problems: Diabetes mellitus type 2. Anemia. Peripheral arterial disease Coronary disease. History of aortic graft. Plan: Urology input is appreciated. The nephrology input is appreciated. Continue to run IV fluids overnight. Avoid nephrotoxic agents. Recheck labs in the morning. Documented By: Norberto Pires DO [id number] Signed By: <Electronically signed by Norberto Pires DO> 01/23/24 3898 [facility] Work Phone: 1(929) 815-929907-12-2024 Consult note Author Yaniv Natarajan [facility] January 23, 2024 3:44pm Note Date/Time January 23, 2024 3:44 pm [facility] [address] [place] [address] Urology Consult Note Signed Patient: Lexi Tatum MR#: [id number] : 1945 Acct:[id number] Age/Sex: 78 / F Adm Date: 4 Loc: Room: [address] [place] [address] Type: ADM IN Attending Dr: Norberto Pires DO Copies to: MD Norberto Olmstead DO Marcia E Braun, MD~ History of Present Illness Consult Details Consult Date: 01/23/2024 Requesting Provider: Norberto Pires DO HPI: Thank for consultation on this 78-year-old female who is undergoing evaluation for outpatient orthopedic surgery and was found to have an elevation in her baseline BUN and creatinine. She already has hypertension and diabetes mellituscontributing to some moderate renal failure but now was found to have hydronephrosis initially on ultrasound and again confirmed on CT scan. Urologicconsultation was requested secondary to the bilateral hydronephrosis which is significant and down to the level of the pelvis. She has never had urolithiasis. She denies flank pain, fever, or chills. Denies recurrent urinary tract infections. She has had no blood in the urine. She is found to have abnormal renal function with a GFR of about 25 and a creatinine of 2.0 and had initially been up to 2.3. Nephrologic consultation is also been obtained during this hospitalization. The entire PMH,PSH,ROS, family and social history, medications, and allergies are reviewed and unchanged from the admission H and P documented by Dr. Pires yesterday. [facility] Medical History (Updated 01/23/24 @ 10:50 by Nic Castillo) PAD (peripheral artery disease) Myocardial infarct Hyperlipidemia Hypertension Diabetes mellitus PAD (peripheral artery disease) Other spondylosis with radiculopathy, lumbar region Chronic pain Aortic occlusion Surgical History (Updated 01/23/24 @ 10:50 by Nic Castillo) History of open heart surgery History of heart artery stent History of delivery H/O heart artery stent S/P angioplasty with stent Family History Other Hypertension Social History Smoking Status: Former smoker Tobacco Type: cigarettes Substance Use Type: None Meds Medications and Allergies Allergies blue dye Allergy (Intermediate, Verified 01/23/24 14:49) Nausea adhesive tape Allergy (Unknown, Verified 01/23/24 14:49) rash Home Medications allopurinol 300 mg tablet (Zyloprim) 300 mg PO DAILY 05/14/17 [History Confirmed 01/22/24] aspirin 81 mg tablet,delayed release (Beth Low Dose Aspirin) 81 mg PO DAILY 05/14/17 [History Confirmed 01/22/24] clopidogrel 75 mg tablet (Plavix) 75 mg PO DAILY 05/14/17 [History Confirmed 01/22/24] rosuvastatin 5 mg tablet (Crestor) 5 mg PO QHS 06/23/17 [History Confirmed 01/22/24] insulin aspart U-100 100 unit/mL (3 mL) subcutaneous pen (Novolog FlexPen U-100 Insulin aspart) See Protocol subcut DIRECTED 07/16/17 [History Confirmed 01/22/24] gabapentin 100 mg capsule 300 mg PO BID 09/11/17 [History Confirmed 01/22/24] carvedilol 25 mg tablet 25 mg PO BID 07/22/18 [History Confirmed 01/22/24] potassium chloride 10 mEq capsule,extended release 10 meq PO DAILY 09/12/23 [History Confirmed 01/22/24] ascorbic acid (vitamin C) 500 mg tablet (Vitamin C) 500 mg PO daily 30 days #30 caps 12/05/23 [Rx Confirmed 01/22/24] ferrous sulfate 325 mg (65 mg iron) tablet (Iron (ferrous sulfate)) 325 mg PO tid 30 days #90 caps 12/05/23 [Rx Confirmed 01/22/24] acetaminophen 650 mg tablet,extended release 1,300 mg PO Q12HR PRN pain 01/12/24[History Confirmed 01/22/24] cholecalciferol (vitamin D3) 125 mcg (5,000 unit) capsule 125 mcg PO DAILY 01/12/24 [History Confirmed 01/22/24] docusate sodium 100 mg capsule (Colace) 100 mg PO DAILY PRN Constipation 01/12/24 [History Confirmed 01/22/24] furosemide 40 mg tablet 40 mg PO DAILY 01/12/24 [History Confirmed 01/22/24] insulin glargine 100 unit/mL (3 mL) subcutaneous pen (Basaglar KwikPen U-100 Insulin) 50 unit subcut QPM 01/12/24 [History Confirmed 01/22/24] oxybutynin chloride 15 mg tablet,extended release 24 hr 15 mg PO DAILY 01/12/24 [History Confirmed 01/22/24] Exam Physical Exam Vital Signs: Temp Pulse Resp BP Pulse Ox O2 Del Method 97.7 F 71 18 151/78 H 95 Room Air 01/23/24 08:28 01/23/24 14:00 01/23/24 14:00 01/23/24 14:00 01/23/24 14:00 01/23/24 14:00 Narrative: General: The patient appears nontoxic. Does not appear ill. Skin: Warm, dry. No gross lesions are identified. HEENT: Normocephalic, atraumatic. Pupils equal, round, and reactive to light and accommodation. Oral mucosa moist. Respiratory: No increased respiratory effort. Cardiac: Regular rate and rhythm GI: Abdomen is soft, nontender, negative peritoneal signs, no obvious hepatosplenomegaly : The bladder is nonpalpable. There is no CVA tenderness bilaterally. Genitalia: Normal external female genitalia Musculoskeletal: Moves all extremities, normal strength Neurologic: Awake, alert, oriented Psychiatric: Affect normal to clinical condition No obvious adenopathy Results - Urology Labs 01/23/24 06:19 01/23/24 06:19 Labs: Laboratory Results - Last 48 hrs. 01/23/24 15:03: POC Glucose 79, POC Glucose Comment Glu2: cleaned meter 01/23/24 11:17: POC Glucose 97, POC Glucose Comment Glu2: cleaned meter 01/23/24 06:32: POC Glucose 75 01/23/24 06:19: Corrected WBC 8.2, Uncorrected WBC Count 8.2, RBC 3.23 L, Hgb 10.3 L, Hct 32.4 L, MCV 100.1 H, MCH 32.0, MCHC 32.0, RDW 17.1 H, Plt Count 198,MPV 9.5, Neut % (Auto) 65.0, Lymph % (Auto) 23.9, Carson % (Auto) 6.8, Eos % (Auto) 3.7, Baso % (Auto) 0.6, Nucleat RBC Rel Count 0.1, Neut # (Auto) 5.3, Lymph # (Auto) 2.0, Carson # (Auto) 0.6, Eos # (Auto) 0.3, Baso # (Auto) 0.0, PT 11.0, INR 0.9, APTT 30.7, PHA Creatinine Clear 23.08, Sodium 142, Potassium 3.7,Chloride 108 H, Carbon Dioxide 27.6, Anion Gap 10.1, BUN 27 H, Creatinine 1.85 H, Est GFR (CKD-EPI) 27.561, Glucose 57 L, Calcium 8.8, Total Creatine Kinase 30, CK-MB (CK-2) 2.3, CK-MB (CK-2) Rel Index 7.6 H, Troponin I High Sens 20.7 H 01/22/24 22:39: POC Glucose 146 01/22/24 15:18: Corrected WBC 8.9, Uncorrected WBC Count 8.9, RBC 3.65, Hgb 11.8, Hct 36.4, MCV 99.7, MCH 32.3, MCHC 32.4, RDW 17.4 H, Plt Count 206, MPV 9.3, Neut % (Auto) 68.5, Lymph % (Auto) 21.7, Carson % (Auto) 5.2, Eos % (Auto) 3.3, Baso % (Auto) 1.3, Nucleat RBC Rel Count 0.2, Neut # (Auto) 6.1, Lymph # (Auto) 1.9, Carson # (Auto) 0.5, Eos # (Auto) 0.3, Baso # (Auto) 0.1, Monocyte Dist Width 19.69, PHA Creatinine Clear 20.74, Sodium 139, Potassium 4.2, Chloride 104, Carbon Dioxide 26.7, Anion Gap 12.5, BUN 29 H, Creatinine 2.02 H, Est GFR (CKD-EPI) 24.802, Glucose 123 H, Calcium 9.2, Total Bilirubin 0.3, AST 9L, ALT 4 L, Alkaline Phosphatase 51, Total Protein 7.3, Albumin 3.7, Globulin 3.6, Albumin/Globulin Ratio 1.0, Urine Color Colorless, Urine Appearance Cloudy A, Urine pH 7.0, Ur Specific [place] 1.010, Urine Protein 50 H, Urine Glucose (UA) Normal, Urine Ketones Negative, Urine Occult Blood Negative, Urine Nitrite Negative, Urine Bilirubin Negative, Urine Urobilinogen Normal, Ur Leukocyte Esterase 1+ H, Urine RBC 1-2, Urine WBC 5-9 H, Urine WBC Clumps Occasional H, UrSquamous Epith Cells 1-2, Urine Bacteria Rare, Hyaline Casts 0-8 Microbiology Microbiology: 01/22/24 15:18 Urine - Clean-Voided Midstream Urine Culture - Preliminary Imaging CT scan - abdomen: report reviewed and image reviewed CT scan - pelvis: report reviewed and image reviewed Additional studies: Reviewed urinalysis Reviewed labs Reviewed ultrasound Assessment/Plan (1) Acute kidney injury: Code(s): N17.9 - Acute kidney failure, unspecified (2) Bilateral hydronephrosis: Code(s): N13.30 - Unspecified hydronephrosis (3) CKD stage 4 due to type 2 diabetes mellitus: Code(s): E11.22 - Type 2 diabetes mellitus with diabetic chronic kidney disease; N18.4 - Chronic kidney disease, stage 4 (severe) Plan Due to the patient's multiple comorbidities including hypertension, pre- existingCKD, diabetes mellitus, and newly diagnosed bilateral hydronephrosis I felt it indicated to recommend operative intervention with cystoscopy and bilateral retrograde pyelograms and possible bilateral ureteral stents. Etiology of the obstruction is unclear as there is no evidence of urolithiasis. She does have ahistory of of abdominal aortic aneurysm and iliac aneurysm repair in the distantpast. Whether or not she has external compression of the ureters at the pelvic inlet is in question. Regardless I feel that relieving obstruction of the bilateral kidneys will at least improve her renal function. If it is found that she has bilateral extrinsic ureteral compression in these areas the possibility of ureterolysis may have to be considered at a tertiary care center. The patient and her are in agreement with the recommended plan currently. They understand the risk of stent irritation including urgency and frequency blood in the urine etc. They also understand the risk of anesthesia given her comorbidities. They wish me to proceed Documented By: Yaniv Natarajan MD 01/23/24 1538 Signed By: <Electronically signed by MD Yaniv Natarajan> 01/23/24 1540 [facility] Work Phone: 1(287) 323-333007-12-2024 Consult note Author [facility] January 23, 2024 12:19pm Note Date/Time January 23, 2024 11:1 9am [facility] [address] [place] [address] Nephrology Consult Note Signed Patient: Lexi Tatum MR#: [id number] : 1945 Acct:[id number] Age/Sex: 78 / F Adm Date: 4 Loc: Room: [address] [place] [address] Type: ADM IN Attending Dr: Norberto Pires DO Copies to: MD Norberto Franco DO Marcia E Braun, MD~ Providers Consult Date: 01/23/24 Requesting Provider: Norberto Pires DO Primary Care Provider: Stefan Best MD [facility] Reason for Consult: CKD management History of Present Illness: Patient is a 78-year-old female with medical history significant for CKD stage IV, DM, HTN, PAD, anemia, CAD, and gout. She presented to the ER after renal ultrasound showed bilateral hydronephrosis and hydroureter. She was seen by 01/12/2024 for evaluation of CKD and presurgical clearance for orthopedic surgery. Preliminary workup for CKD including renal ultrasound showed bilateral hydronephrosis. Is not aware of any kidney stones or obstructive uropathy in the past. She was told to go to the emergency department for further evaluation. She had CT scan of the abdomen in the ER without contrast that confirmed bilateral hydronephrosis and hydroureter up to the renal pelvis. Urology was consulted and the patient is scheduled for cystoscopy this afternoon. Creatinine on admit was 2.02 mg/dL slightly higher than baseline creatinine is 1.5 to 1.8 mg/dL. Hemoglobin was 11.8 g/dL. Urinalysis reveals 1+ leukoesterase and cultures pending. I was consulted for management of CKD. Patient was started on IV fluid normal saline 100 cc/h. She is currently n.p.o.for procedure that scheduled this afternoon. Patient was seen and examined at bedside this morning. She has no acute complaints at this time. She denies shortness of breath, chest pain, abdominal pain. Creatinine did improve down to 1.85 with IV fluid however the patient hasedema. She stated that she had open heart surgery and he had a history of CHF. He was on furosemide that is currently on hold Review of Systems Review of Systems All other systems reviewed & are negative unless noted below or in HPI [facility] Medical History (Updated 01/23/24 @ 10:50 by Nic Castillo) PAD (peripheral artery disease) Myocardial infarct Hyperlipidemia Hypertension Diabetes mellitus PAD (peripheral artery disease) Other spondylosis with radiculopathy, lumbar region Chronic pain Aortic occlusion Surgical History (Updated 01/23/24 @ 10:50 by Nic Castillo) History of open heart surgery History of heart artery stent History of delivery H/O heart artery stent S/P angioplasty with stent Family History Other Hypertension Social History Smoking Status: Former smoker Tobacco Type: cigarettes Substance Use Type: None Meds Medications & Allergies Allergies adhesive tape Allergy (Unknown, Verified 01/22/24 11:55) rash Home Medications allopurinol 300 mg tablet (Zyloprim) 300 mg PO DAILY 05/14/17 [History Confirmed 01/22/24] aspirin 81 mg tablet,delayed release (Beth Low Dose Aspirin) 81 mg PO DAILY 05/14/17 [History Confirmed 01/22/24] clopidogrel 75 mg tablet (Plavix) 75 mg PO DAILY 05/14/17 [History Confirmed 01/22/24] rosuvastatin 5 mg tablet (Crestor) 5 mg PO QHS 06/23/17 [History Confirmed 01/22/24] insulin aspart U-100 100 unit/mL (3 mL) subcutaneous pen (Novolog FlexPen U-100 Insulin aspart) See Protocol subcut DIRECTED 07/16/17 [History Confirmed 01/22/24] gabapentin 100 mg capsule 300 mg PO BID 09/11/17 [History Confirmed 01/22/24] carvedilol 25 mg tablet 25 mg PO BID 07/22/18 [History Confirmed 01/22/24] potassium chloride 10 mEq capsule,extended release 10 meq PO DAILY 09/12/23 [History Confirmed 01/22/24] ascorbic acid (vitamin C) 500 mg tablet (Vitamin C) 500 mg PO daily 30 days #30 caps 12/05/23 [Rx Confirmed 01/22/24] ferrous sulfate 325 mg (65 mg iron) tablet (Iron (ferrous sulfate)) 325 mg PO tid 30 days #90 caps 12/05/23 [Rx Confirmed 01/22/24] acetaminophen 650 mg tablet,extended release 1,300 mg PO Q12HR PRN pain 01/12/24[History Confirmed 01/22/24] cholecalciferol (vitamin D3) 125 mcg (5,000 unit) capsule 125 mcg PO DAILY 01/12/24 [History Confirmed 01/22/24] docusate sodium 100 mg capsule (Colace) 100 mg PO DAILY PRN Constipation 01/12/24 [History Confirmed 01/22/24] furosemide 40 mg tablet 40 mg PO DAILY 01/12/24 [History Confirmed 01/22/24] insulin glargine 100 unit/mL (3 mL) subcutaneous pen (Basaglar NehaikPen U-100 Insulin) 50 unit subcut QPM 01/12/24 [History Confirmed 01/22/24] oxybutynin chloride 15 mg tablet,extended release 24 hr 15 mg PO DAILY 01/12/24 [History Confirmed 01/22/24] Active Medications: Active Medications Acetaminophen (Acetaminophen 325 Mg Tablet) 650 mg PO Q6HR PRN PRN Reason: Pain Scale 1 - 3 or fever Stop: 01/21/25 18:58 Last Admin: 01/22/24 22:55 Dose: 650 mg Allopurinol (Allopurinol 300 Mg Tablet) 300 mg PO DAILY REBA Stop: 01/22/25 08:59 Last Admin: 01/23/24 07:59 Dose: 300 mg Atorvastatin Calcium (Atorvastatin 10 Mg Tablet) 10 mg PO QHS REBA Stop: 01/21/25 21:59 Last Admin: 01/22/24 22:52 Dose: 10 mg Carvedilol (Carvedilol 25 Mg Tablet) 25 mg PO BID.WITH.MEALS REBA Stop: 01/21/25 19:04 Last Admin: 01/23/24 07:59 Dose: 25 mg Dextrose (Dextrose 50% In Water 25 Gm/50 Ml Syringe) 0 gm IV-PUSH PRN PRN PRN Reason: Hypoglycemia Stop: 01/21/25 18:58 Docusate Sodium (Docusate 100 Mg Capsule) 100 mg PO BID REBA Stop: 01/21/25 20:59 Last Admin: 01/22/24 22:53 Dose: 100 mg Gabapentin (Gabapentin 300 Mg Capsule) 300 mg PO BID REBA Stop: 01/21/25 20:59 Last Admin: 01/23/24 07:59 Dose: 300 mg Glucose (Dextrose 40% Gel 15 Gm Tube) 0 gm PO PRN PRN PRN Reason: Hypoglycemia Stop: 01/21/25 18:58 Hydralazine HCl (Hydralazine 20 Mg/Ml Vial) 10 mg IV-PUSH Q4H PRN PRN Reason: Hypertension Stop: 01/21/25 18:58 Sodium Chloride (0.9% Sodium Chloride 1,000 Ml) 1,000 mls @ 75 mls/hr IV .[id number] [facility] Stop: 01/21/25 18:59 Last Admin: 01/23/24 10:00 Dose: 100 mls/hr Insulin Aspart (Insulin Aspart 300 Units/3 Ml Insuln.Pen) 0 units SUBCUT TID.WM.HS [facility]; Protocol Stop: 01/21/25 21:59 Last Admin: 01/22/24 22:55 Dose: Not Given Insulin Glargine (Insulin Glargine 300 Units/3 Ml Insuln.Pen) 25 units SUBCUT QPM [facility] Stop: 01/21/25 20:59 Last Admin: 01/22/24 23:25 Dose: Not Given Magnesium Hydroxide (Magnesium Hydroxide Susp 30 Ml Udc) 30 ml PO BID PRN PRN Reason: Constipation Stop: 01/21/25 18:58 Metoprolol Tartrate (Metoprolol Tartrate 5 Mg/5 Ml Vial) 5 mg IV-PUSH Q4H PRN PRN Reason: Blood Pressure Stop: 01/21/25 18:58 Oxybutynin Chloride (Oxybutynin Chloride 5 Mg Tab.Er.24) 15 mg PO DAILY [facility] Stop: 01/22/25 08:59 Last Admin: 01/23/24 07:59 Dose: 15 mg Potassium Chloride (Potassium Chloride Er 10 Meq Capsule.Er) 10 meq PO DAILY [facility] Stop: 01/22/25 08:59 Last Admin: 01/23/24 07:59 Dose: 10 meq Sodium Chloride (Sodium Chloride 0.9 % 10 Ml Syringe) 0 ml IV-PUSH PRN PRN PRN Reason: Flush Stop: 01/21/25 11:53 Last Admin: 01/22/24 17:30 Dose: 10 ml Exam Physical Exam Vital Signs: Temp Pulse Resp BP Pulse Ox O2 Del Method 97.7 F 71 20 134/59 L 94 L Room Air 01/23/24 08:28 01/23/24 08:28 01/23/24 08:28 01/23/24 08:28 01/23/24 08:28 01/23/24 08:28 Narrative: General: Comfortable in bed. No acute distress HEENT: Normocephalic, atraumatic. No jaundice, [place]. Moist mucous membrane Cardiovascular: Regular rate and rhythm, no murmurs. No JVD Respiratory: Good bilateral air entry, no wheezes. Normal respiratory effort Abdominal: Nondistended, nontender. Bowel sounds present Extremity: +1 bilateral edema. No cyanosis Musculoskeletal: No swelling of large joints Neuro: Awake, alert, oriented x 3 Psychiatric: Cooperative. Normal mood and affect Results - Nephrology Labs 01/23/24 06:19 01/23/24 06:19 Labs: 01/22/24 01/23/24 15:18 06:19 BUN 29 H 27 H Creatinine 2.02 H 1.85 H Albumin 3.7 Urine Color Colorless Urine Appearance Cloudy A Urine pH 7.0 Ur Specific [place] 1.010 Urine Protein 50 H Urine Glucose (UA) Normal Urine Ketones Negative Urine Occult Blood Negative Urine Nitrite Negative Ur Leukocyte Esterase 1+ H Urine RBC 1-2 Urine WBC 5-9 H Urine Bacteria Rare Radiology Impressions Impressions - last 24 hours: Impressions Abdomen/Pelvis CT 01/22/24 16:11 IMPRESSION: Bilateral hydronephrosis and hydroureter to the level of the pelvic inlet without obstructing stone or gross mass. Underlying stricture possibly related to the patient's aortic bypass cannot BE excluded. Urology consultation is suggested for further intervention. Gallbladder sludge. Partially calcified fibroid uterus. Impression dictated by: Earnest Iraheta Jr., D.O.01/22/2024 4:28 PM Dictation Location: [place] [address] Any impression(s) listed above is documentation that was entered by the reading physician into a diagnostic report(s) for Lexi Tatum. I have reviewed the report(s) and am incorporating any findings in the treatment plan of this patient where applicable. A&P - Nephrology Assessment/Plan (1) Bilateral hydronephrosis: Plan: Bilateral hydronephrosis found incidentally on ultrasound during outpatient nephrology visit with Dr. Ashby 01/12/2024. This was confirmed with abdominal CT in emergency department 01/22/2024. Urology will be doing cystoscopy with possible stent placement (2) CKD (chronic kidney disease) stage 4, GFR 15-29 ml/min: Plan: Patient has longstanding CKD most likely due to DM and HTN. Baseline creatinine1.5 to 1.8 mg/dL. Creatinine on admission was 2.02 mg/dL and has continued decreased to 1.85 mg/dL today with hydration. Blood pressure is normal. (3) Hypertensive chronic kidney disease with stage 1 through stage 4 chronic kidney disease, or unspecified chronic kidney disease: Plan: Has chronic hypertension. Most recent blood pressure 134/359. (4) Type 2 diabetes mellitus with diabetic chronic kidney disease: Plan: Has type II DM. Patient most recent hemoglobin A1c was 7.4%. Blood glucose being managed by hospitalist team. (5) Anemia of renal disease: Plan: Patient has history of anemia from renal disease. Hemoglobin 12/06/2023 was 9.5.Hemoglobin is 10.3 mg/dL today. She continues to take oral iron. Vitamin B12 and folate were within normal limits 12/06/2019. (6) History of coronary artery bypass graft: Plan: Patient has a history of open heart surgery in 2017. (7) History of CHF (congestive heart failure): Plan: Patient has history of CHF and takes furosemide 40 mg daily. She is euvolemic at this time and will hold diuretic until after procedure. Plan * Kidney function is stable at this time. Will decrease IV fluid to 75 cc/h at the patient has edema and she stated that she feels that she is loaded with fluid. Furosemide will be restarted after her procedure. Patient is currently NPO. * Urology to complete cystoscopy with possible stent placement this afternoon * Daily renal panel during hospital stay Patient is eager to be discharged after the procedure. She was informed that depending on the results of cystoscopy, if she has stent placed and renal function are stable, she can be discharged possibly tomorrow to follow-up with urology as outpatient and nephrology in the renal clinic. I appreciate this consultation and will be happy to follow the patient with you during hospital stay. This document was dictated utilizing computerized voice recognition technology. Errors in grammar, spelling, and or syntax may be noted. The creator of this document does not proofread for this. Documented By: Gita Azevedo MD 01/23/24 1125 Signed By: <Electronically signed by MD Gita Azevedo> 01/23/24 1213 [facility] Work Phone: 1(679) 962-512207-11-2024 History and physical note Author Norberto Pires [facility] January 22, 2024 9:37pm Note Date/Time January 22, 2024 9:37 pm [facility] [address] [place] [address] Hospitalist H&P Signed Patient: Lexi Tatum MR#: [id number] : 1945 Acct:[id number] Age/Sex: 78 / F Adm Date: 4 Loc: Room: 6Y9800-4 Type: ADM IN Attending Dr: Norberto Pires DO Copies to: DO Stefan Zafar MD~ HPI DATE OF EXAMINATION: 01/22/24 CHIEF COMPLAINT: Sent by a doctor. HISTORY OF PRESENT ILLNESS: This is a 78-year-old woman who was referred to the emergency room today with a recent finding of bilateral hydronephrosis and worsening rising creatinine. When she was in the emergency room a CT scan of her abdomen and pelvis was done without IV contrast that showed bilateral hydronephrosis and hydroureter to thelevel of the pelvic inlet without obstructing stone or gross mass. Underlying stricture possibly related the patient's aortic bypass cannot be excluded. Theemergency room made contact with urology with Dr. Natarajan and nephrology with Dr. Barreto. IV fluids were recommended and n.p.o. after midnight is requested so the patient can get cystoscopy in the morning. The last labs that we have on her from 2019 she had a very nice normal creatinine at 1.26. Most recently it has been elevated at 2.23 and 2.02. When I see the patient emergency room she has just finished eating a full dinner. She says that she has had absolutely no symptoms at all. She denies any abdominal pain. She denies any flank pain. She denies any sensation of dysuria. She believes that she is passing urine. She says I have been very incontinent? For a long time. She says I take medicine for this but it is not really working. One of her other main complaints is fairly debilitating hip pain. I told her that she can address that once her urologic and nephrologic situation is improved. 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 Review of Systems Review of Systems Review of systems: 10 systems are reviewed and are negative except as mentioned elsewhere in the documentation. PMFSH Medical History (Updated 01/22/24 @ 21:34 by Norberto Pires DO) PAD (peripheral artery disease) Myocardial infarct Hyperlipidemia Hypertension Diabetes mellitus PAD (peripheral artery disease) Other spondylosis with radiculopathy, lumbar region Chronic pain Aortic occlusion Surgical History History of open heart surgery History of heart artery stent History of delivery H/O heart artery stent S/P angioplasty with stent Family History (Updated 01/22/24 @ 21:32 by Norberto Pires DO) Other Hypertension Social History Smoking Status: Never smoker Substance Use Type: None Meds Medications and Allergies Allergies adhesive tape Allergy (Unknown, Verified 01/22/24 11:55) rash Home Medications allopurinol 300 mg tablet (Zyloprim) 300 mg PO DAILY 05/14/17 [History Confirmed 01/22/24] aspirin 81 mg tablet,delayed release (Beth Low Dose Aspirin) 81 mg PO DAILY 05/14/17 [History Confirmed 01/22/24] clopidogrel 75 mg tablet (Plavix) 75 mg PO DAILY 05/14/17 [History Confirmed 01/22/24] rosuvastatin 5 mg tablet (Crestor) 5 mg PO QHS 06/23/17 [History Confirmed 01/22/24] insulin aspart U-100 100 unit/mL (3 mL) subcutaneous pen (Novolog FlexPen U-100 Insulin aspart) See Protocol subcut DIRECTED 07/16/17 [History Confirmed 01/22/24] gabapentin 100 mg capsule 300 mg PO BID 09/11/17 [History Confirmed 01/22/24] carvedilol 25 mg tablet 25 mg PO BID 07/22/18 [History Confirmed 01/22/24] potassium chloride 10 mEq capsule,extended release 10 meq PO DAILY 09/12/23 [History Confirmed 01/22/24] ascorbic acid (vitamin C) 500 mg tablet (Vitamin C) 500 mg PO daily 30 days #30 caps 12/05/23 [Rx Confirmed 01/22/24] ferrous sulfate 325 mg (65 mg iron) tablet (Iron (ferrous sulfate)) 325 mg PO tid 30 days #90 caps 12/05/23 [Rx Confirmed 01/22/24] acetaminophen 650 mg tablet,extended release 1,300 mg PO Q12HR PRN pain 01/12/24[History Confirmed 01/22/24] cholecalciferol (vitamin D3) 125 mcg (5,000 unit) capsule 125 mcg PO DAILY 01/12/24 [History Confirmed 01/22/24] docusate sodium 100 mg capsule (Colace) 100 mg PO DAILY PRN Constipation 01/12/24 [History Confirmed 01/22/24] furosemide 40 mg tablet 40 mg PO DAILY 01/12/24 [History Confirmed 01/22/24] insulin glargine 100 unit/mL (3 mL) subcutaneous pen (Basaglar KwikPen U-100 Insulin) 50 unit subcut QPM 01/12/24 [History Confirmed 01/22/24] oxybutynin chloride 15 mg tablet,extended release 24 hr 15 mg PO DAILY 01/12/24 [History Confirmed 01/22/24] Exam Physical Exam Vital Signs: Temp Pulse Resp BP Pulse Ox O2 Del Method 98.2 F 87 16 166/71 H 95 Room Air 01/22/24 21:20 01/22/24 21:20 01/22/24 21:20 01/22/24 21:20 01/22/24 21:20 01/22/24 21:20 Narrative: GEN: Short statured woman, reclining with moderate discomfort on the ER cot. Head: Normal Cephalic, Atraumatic. Eyes: Conjunctiva and sclera clear bilaterally. Nose: External nose and nares normal bilaterally. Mouth: Lips and tongue normal. Neck: No JVD. No thyromegaly. No lymphadenopathy. Lungs: Clear to auscultation bilaterally, no wheezing, no crackles. Heart: Regular rate and rhythm, no murmurs, rubs, or gallops. Abdomen: Soft, normal bowel sounds, no rigidity, guarding, or acute peritoneal signs. Extremities: No swelling or cords in the calves bilaterally, no edema in the ankles bilaterally. Skin: No systemic rashes or lesions. Psychiatric: Calm. Conversant. Cooperative. Neuro: Awake, Alert, and Oriented x 3. No focal or lateralizing deficits. Results - Hospitalist H&P Lab Results Labs: Laboratory Last Values Corrected WBC 8.9 X10E3/uL (3.8-11.6) 01/22/24 15:18 Uncorrected WBC Count 8.9 x10E3/uL (3.8-11.6) 01/22/24 15:18 RBC 3.65 X10E6/uL (3.60-5.00) 01/22/24 15:18 Hgb 11.8 g/dL (11.8-15.4) 01/22/24 15:18 Hct 36.4 % (34.0-46.4) 01/22/24 15:18 MCV 99.7 fl (80-100) 01/22/24 15:18 MCH 32.3 pg (24.7-34.3) 01/22/24 15:18 MCHC 32.4 g/dL (32.0-35.0) 01/22/24 15:18 RDW 17.4 % (11.9-15.3) H 01/22/24 15:18 Plt Count 206 x10E3/uL (150-450) 01/22/24 15:18 MPV 9.3 fl (6.3-10.7) 01/22/24 15:18 Neut % (Auto) 68.5 % (.) 01/22/24 15:18 Lymph % (Auto) 21.7 % (.) 01/22/24 15:18 Carson % (Auto) 5.2 % (.) 01/22/24 15:18 Eos % (Auto) 3.3 % (.) 01/22/24 15:18 Baso % (Auto) 1.3 % (.) 01/22/24 15:18 Nucleat RBC Rel Count 0.2 /100 WBC (0-0.5) 01/22/24 15:18 Neut # (Auto) 6.1 x10E3/uL (1.8-7.7) 01/22/24 15:18 Lymph # (Auto) 1.9 x10E3/uL (1.00-4.8) 01/22/24 15:18 Carson # (Auto) 0.5 x10E3/uL (0.0-0.8) 01/22/24 15:18 Eos # (Auto) 0.3 x10E3/uL (0.0-0.45) 01/22/24 15:18 Baso # (Auto) 0.1 x10E3/uL (0.0-0.2) 01/22/24 15:18 Monocyte Dist Width 19.69 % (0.00-20.00) 01/22/24 15:18 PHA Creatinine Clear 20.74 01/22/24 15:18 Sodium 139 mmol/L (136-145) 01/22/24 15:18 Potassium 4.2 mmol/L (3.5-5.1) 01/22/24 15:18 Chloride 104 mmol/L (98-107) 01/22/24 15:18 Carbon Dioxide 26.7 mmol/L (21.0-31.0) 01/22/24 15:18 Anion Gap 12.5 mEq/L (6.0-15.0) 01/22/24 15:18 BUN 29 mg/dL (7-25) H 01/22/24 15:18 Creatinine 2.02 mg/dL (0.60-1.20) H 01/22/24 15:18 Est GFR (CKD-EPI) 24.802 mL/Min 01/22/24 15:18 Glucose 123 mg/dL (70-100) H 01/22/24 15:18 Calcium 9.2 mg/dL (8.6-10.3) 01/22/24 15:18 Total Bilirubin 0.3 mg/dl (0.3-1.0) 01/22/24 15:18 AST 9 U/L (13-39) L 01/22/24 15:18 ALT 4 U/L (7-52) L 01/22/24 15:18 Alkaline Phosphatase 51 U/L (34-104) 01/22/24 15:18 Total Protein 7.3 gm/dL (6.4-8.9) 01/22/24 15:18 Albumin 3.7 gm/dL (3.5-5.7) 01/22/24 15:18 Globulin 3.6 gm/dL 01/22/24 15:18 Albumin/Globulin Ratio 1.0 01/22/24 15:18 Urine Color Colorless (Yellow) 01/22/24 15:18 Urine Appearance Cloudy (Clear) A 01/22/24 15:18 Urine pH 7.0 (5.0-9.0) 01/22/24 15:18 Ur Specific [place] 1.010 (1.001-1.030) 01/22/24 15:18 Urine Protein 50 mg/dL (Negative) H 01/22/24 15:18 Urine Glucose (UA) Normal mg/dL (Normal) 01/22/24 15:18 Urine Ketones Negative (Negative) 01/22/24 15:18 Urine Occult Blood Negative (Negative) 01/22/24 15:18 Urine Nitrite Negative (Negative) 01/22/24 15:18 Urine Bilirubin Negative (Negative) 01/22/24 15:18 Urine Urobilinogen Normal mg/dL (Normal) 01/22/24 15:18 Ur Leukocyte Esterase 1+ (Negative) H 01/22/24 15:18 Urine RBC 1-2 /HPF (0-4) 01/22/24 15:18 Urine WBC 5-9 /HPF (0-4) H 01/22/24 15:18 Urine WBC Clumps Occasional /LPF (None Seen) H 01/22/24 15:18 Ur Squamous Epith Cells 1-2 /HPF (0-2) 01/22/24 15:18 Urine Bacteria Rare /HPF (None Seen) 01/22/24 15:18 Hyaline Casts 0-8 /LPF (0-8) 01/22/24 15:18 Assessment & Plan Assessment/Plan (1) Bilateral hydronephrosis: (2) Urinary obstruction, unspecified: (3) Acute kidney injury: (4) Type 2 diabetes mellitus with hyperglycemia: (5) Hyperlipidemia: (6) Hypertension: (7) PAD (peripheral artery disease): (8) CAD (coronary artery disease): Plan Status: Bilateral hydronephrosis with her level of declining renal function at her age and with her multiple medical core morbidities is a serious medical problem. Inpatient status is required from the beginning. Care for this problem could not be accomplished at a lower level of care, such as outpatient or observation care. Assessment: Acute kidney injury. Bilateral hydronephrosis. Unspecified urinary obstruction. Longstanding problems: Diabetes mellitus type 2. Anemia. Peripheral arterial disease Coronary disease. History of aortic graft. Plan: Hospital mission, inpatient status. Consult to urology. Cystoscopy is planned in the morning. Consult to nephrology. Provide IV fluids with normal saline 100 mL an hour overnight. Hold her home aspirin, Plavix, and Lasix. Reduce her long-acting insulin by about 50%. She should get her evening Coreg tonight as soon as possible so the blood pressures are under control in the morning. Sleeve compression devices only at first for DVT prophylaxis. IP vs OBS Justification Based on differential dx, clinical care plan, and risk of adverse events, if untreated, in my clinical judgement this patient requires an acute care setting as: INPATIENT because of an expectation of an over 2 midnight stay. Estimated length of stay (# of days): 3 Documented By: Norberto Pires DO [id number] Signed By: <Electronically signed by Norberto Pires DO> 01/22/242136 [facility] Work Phone: 1(124) 731-962703-06-2024 History of Present illness Narrative* Tom Morales MD - 09/17/2023 1:20 PM EST Subjective Lexi Tatum is a 78 y.o. [...] coronary disease and because of this I low fidelia her coronary disease should be reevaluated in [...] normal. Allergies Williams inhibitors, Atorvastatin, Spironolactone, and Pskbpzg-coz-vie reductase inhibitors Current Medications Current Outpatient Medications: allopurinol (Zyloprim) 300 mg tablet, Take 1 tablet (300 mg) by mouth once daily., Disp: , Rfl: aspirin 81 mg EC tablet, TAKE ONE TABLET BY MOUTH DAILY, Disp: 90 tablet, Rfl: 3 Basaglar KwikPen U-100 Insulin 100 unit/mL (3 mL) pen, Inject 50 Units under the skin once daily atbedtime., Disp: , Rfl: carvedilol (Coreg) 25 mg [...] the direction and in the presence of Hugh Morales MD. Provider Attestation - Scribe documentation All medical record entries made by the Scribe were at my direction and personally dictated by me. Ihave reviewed the chart and agree that the record accurately reflects my personal performance of the history, physical exam, discussion and plan. [facility] Work Phone: 1(543) 168-505403-06-2024 Instructions* Patient Instructions* Kaleigh Funez LPN - 09/17/2023 1:20 PM [...] time of your visit. documented [facility] Work Phone: 1(556) 492-710102-27-2024 Note [id number]#1.00[facility] [id number]#1.00[facility]2024 [id number]#1.00TIFLuis Tan [facility]01-31-2024 Evaluation note* Encounter Date Diagnosis Assessment Notes Treatment Notes Treatment Clinical Notes Jul, Primary osteoarthritis of left hip (ICD-10 - M16.12) Jul, Other We have provide d her a few names of [facility] physicians that are currently taking new patients [...] can see her 3 months after that. [employer] Other 09-14-2023 Evaluation note* Encounter Date Diagnosis [...] is considering changing from her current PCP [facility] Other 05-02-2023 Evaluation note* Encounter Date Diagnosis [...] Above note written by Ramandeep Aggarwal LPN, T[employer]or Gar[employer]. Edited and approved by Dr. Ross Colmenares [...] negative findings were considered in medical decision-making. [employer] Other 05-01-2017 History general Narrative - Reported* Type Description Date Medical History [place] Medical History Hyperlipiedmia Medical History PVD Medical History DM Medical History HTN Surgical History Open Heart 11/2016 Surgical History Cardiac Stent 09/2017 Surgical History Cardiac Stent 05/2017 Surgical History C- section 1960 Surgical History Rt iliac angioplasty & stent; Aortobiiliac bifurcation graft 07/20/18 Hospitalization History See above [employer] Other Evaluation + Plan note Future Appointments Appointment Date:03/25/2023 01:00:00 PM Scheduled Provider: Location:[facility] Appointment Type:FM Medicare Wellness [facility] noteNo assessment information available [facility] Work Phone: Evaluation noteNo InformationNort [employer] Other Evaluation note* Diagnosis CAD, multiple vessel- Primary S/P CABG x 3 Postsurgical aortocoronary bypass status History of angioplasty Primary hypertension Unspecified essential hypertension Ischemic cardiomyopathy Other specified forms of chronic ischemic heart disease Mixed hyperlipidemia BMI 32.0-32.9,adult Former smoker Personal history of tobacco use, presenting hazards to health Occlusion and stenosis of right carotid artery Shortness of breath documented in this encounter [facility] Work Phone: Evaluation note* Diagnosis CAD, multiple vessel S/P CABG x 3 Postsurgical aortocoronary bypass status Ischemic cardiomyopathy Other specified forms of chronic ischemic heart disease Occlusion and stenosis of right carotid artery Shortness of breath documented in this encounter [facility] Work Phone: Evaluation note* Diagnosis Onset Date Resolution Status Osteoarthritis of left hip a cute Type 2 diabetes mellitus with hyperglycemia acute UTI (urinary tract infection) acute Lumbar pain acute Osteoarthritis of left hip a cute Uncontrolled diabetes mellitus [facility] Work Phone: Evaluation note* Diagnosis Onset [...] 2 diabetes mellitus with hyperglycemia [facility] Work Phone: Evaluation note* Diagnosis Onset Date Resolution Status Lumbar pain acute Osteoarthritis of left hip a cute Uncontrolled diabetes mellitus acute OAB (overactive bladder) acu te Preoperative examination acu te Primary osteoarthritis of left hip acute Type 2 diabetes mellitus with hyperglycemia [facility] Work Phone: evaluation note* Diagnosis Onset Date Resolution Status OAB [...] 4, GFR 15-29 ml/min acute Hyperlipidemia acute [id number] acute Secondary hyperparathyroidism acute Type 2 diabetes mellitus wit h diabetic chronic kidney disease acute [facility] Work Phone: Evaluation note* Diagnosis Onset [...] disease) stage 4, GFR 15-29 ml/min acute Gout acute Hyperlipidemia acute [id number] acute Secondary hyperparathyroidism acute Type 2 diabetes mellitus wit h diabetic chronic kidney disease acute Acute kidney injury acute Anemia of renal disease acut e Bilateral hydronephrosis acu te CAD (coronary artery disease) acute CKD (chronic kidney disease) acute CKD (chronic kidney disease) stage 4, GFR 15-29 ml/min acute CKD stage 4 due to type 2 diabetes mellitus acute History of CHF (congestive heart failure) acute History of coronary artery bypass graft acute Hydronephrosis acute Hydroureter acute Hyperlipidemia acute Hypertension acute [id number] acute PAD (peripheral artery disease) acute Type 2 diabetes mellitus wit h diabetic chronic kidney disease acute Type 2 diabetes mellitus with hyperglycemia acute Urinary obstruction, unspecified acute [facility] Work Phone: Evaluation note* Diagnosis [...] disease) stage 4, GFR 15-29 ml/min acute Gout acute Hyperlipidemia acute [id number] acute Secondary hyperparathyroidism acute Type 2 diabetes mellitus wit h diabetic chronic kidney disease acute Anemia of renal disease acut e Bilateral hydronephrosis acu te CAD (coronary artery disease) acute CKD (chronic kidney disease) stage 4, GFR 15-29 ml/min acute CKD stage 4 due to type 2 diabetes mellitus acute History of coronary artery bypass graft acute Hydroureter acute Hyperlipidemia acute Hypertension acute [id number] acute PAD (peripheral artery disease) acute Type 2 diabetes mellitus wit h diabetic chronic kidney disease acute Type 2 diabetes mellitus with hyperglycemia acute Urinary obstruction, unspecified acute Acute kidney injury resolved [facility] Work Phone: Evaluation note* Diagnosis Onset Date Resolution Status Anemia acute CKD stage 4 due to type 2 diabetes mellitus acute OAB (overactive bladder) acu te Primary osteoarthritis of left hip acute Anemia of renal disease acut e CKD (chronic kidney disease) stage 4, GFR 15-29 ml/min acute Gout acute Hyperlipidemia acute [id number] acute Secondary hyperparathyroidism acute Type 2 diabetes mellitus wit h diabetic chronic kidney disease acute Anemia of renal disease acut e Bilateral hydronephrosis acu te CAD (coronary artery disease) acute CKD (chronic kidney disease) stage 4, GFR 15-29 ml/min acute CKD stage 4 due to type 2 diabetes mellitus acute History of coronary artery bypass graft acute Hydroureter acute Hyperlipidemia acute Hypertension acute [id number] acute PAD (peripheral artery disease) acute Type 2 diabetes mellitus wit h diabetic chronic kidney disease acute Type 2 diabetes mellitus with hyperglycemia acute Urinary obstruction, unspecified acute Acute kidney injury resolved Anemia of renal disease acut e CKD (chronic kidney disease) stage 4, GFR 15-29 ml/min acute Primary osteoarthritis of left hip acute [facility] Work Phone: Evaluation note* Diagnosis Onset Date Resolution Status Anemia of renal disease acut e CKD (chronic kidney disease) stage 4, GFR 15-29 ml/min acute Gout acute Hyperlipidemia acute [id number] acute Secondary hyperparathyroidism acute Type 2 diabetes mellitus wit h diabetic chronic kidney disease acute Anemia of renal disease acut e Bilateral hydronephrosis acu te CAD (coronary artery disease) acute CKD (chronic kidney disease) stage 4, GFR 15-29 ml/min acute CKD stage 4 due to type 2 diabetes mellitus acute History of coronary artery bypass graft acute Hydroureter acute Hyperlipidemia acute Hypertension acute [id number] acute PAD (peripheral artery disease) acute Type 2 diabetes mellitus wit h diabetic chronic kidney disease acute Type 2 diabetes mellitus with hyperglycemia acute Urinary obstruction, unspecified acute Acute kidney injury resolved Anemia of renal disease acut e CKD (chronic kidney disease) stage 4, GFR 15-29 ml/min acute Primary osteoarthritis of left hip acute Anemia of renal disease acut e CKD (chronic kidney disease) stage 4, GFR 15-29 ml/min acute Primary osteoarthritis of left hip acute Sepsis due to urinary tract infection acute Anemia of renal disease acut e CKD (chronic kidney disease) stage 4, GFR 15-29 ml/min acute CKD stage 4 due to type 2 diabetes mellitus acute Hyperlipidemia acute [id number] acute Secondary hyperparathyroidism acute Type 2 diabetes mellitus wit h diabetic chronic kidney disease acute [facility] Work Phone: Evaluation note* Diagnosis Onset Date Resolution Status Anemia of renal disease acut e CKD (chronic kidney disease) stage 4, GFR 15-29 ml/min acute Gout acute Hyperlipidemia acute [id number] acute Secondary hyperparathyroidism acute Type 2 diabetes mellitus wit h diabetic chronic kidney disease acute Anemia of renal disease acut e Bilateral hydronephrosis acu te CAD (coronary artery disease) acute CKD (chronic kidney disease) stage 4, GFR 15-29 ml/min acute CKD stage 4 due to type 2 diabetes mellitus acute History of coronary artery bypass graft acute Hydroureter acute Hyperlipidemia acute Hypertension acute [id number] acute PAD (peripheral artery disease) acute Type 2 diabetes mellitus wit h diabetic chronic kidney disease acute Type 2 diabetes mellitus with hyperglycemia acute Urinary obstruction, unspecified acute Acute kidney injury resolved Anemia of renal disease acut e CKD (chronic kidney disease) stage 4, GFR 15-29 ml/min acute Primary osteoarthritis of left hip acute Anemia of renal disease acut e CKD (chronic kidney disease) stage 4, GFR 15-29 ml/min acute Primary osteoarthritis of left hip acute Sepsis due to urinary tract infection acute Anemia of renal disease acut e CKD (chronic kidney disease) stage 4, GFR 15-29 ml/min acute Gout acute Hyperlipidemia acute [id number] acute Proteinuria acute Secondary hyperparathyroidism acute Type 2 diabetes mellitus wit h diabetic chronic kidney disease acute [facility] Work Phone: Evaluation note* Diagnosis Onset Date Resolution Status Anemia of renal disease acut e CKD (chronic kidney disease) stage 4, GFR 15-29 ml/min acute Gout acute Hyperlipidemia acute [id number] acute Secondary hyperparathyroidism acute Type 2 diabetes mellitus wit h diabetic chronic kidney disease acute Anemia of renal disease acut e Bilateral hydronephrosis acu te CAD (coronary artery disease) acute CKD (chronic kidney disease) stage 4, GFR 15-29 ml/min acute CKD stage 4 due to type 2 diabetes mellitus acute History of coronary artery bypass graft acute Hydroureter acute Hyperlipidemia acute Hypertension acute [id number] acute PAD (peripheral artery disease) acute Type 2 diabetes mellitus wit h diabetic chronic kidney disease acute Type 2 diabetes mellitus with hyperglycemia acute Urinary obstruction, unspecified acute Acute kidney injury resolved Anemia of renal disease acut e CKD (chronic kidney disease) stage 4, GFR 15-29 ml/min acute Primary osteoarthritis of left hip acute Anemia of renal disease acut e CKD (chronic kidney disease) stage 4, GFR 15-29 ml/min acute Primary osteoarthritis of left hip acute Sepsis due to urinary tract infection acute Anemia of renal disease acut e CKD (chronic kidney disease) stage 4, GFR 15-29 ml/min acute Gout acute Hyperlipidemia acute [id number] acute Proteinuria acute Secondary hyperparathyroidism acute Type 2 diabetes mellitus wit h diabetic chronic kidney disease acute UTI (urinary tract infection) acute [facility] Work Phone: Evaluation note* Diagnosis CAD, multiple vessel- Primary Occlusion and stenosis of right carotid artery Ischemic cardiomyopathy Other specified forms of chronic ischemic heart disease Primary hypertension Unspecified essential hypertension Mixed hyperlipidemia Type 2 diabetes mellitus without complication, with long-term current use of insulin (Multi) BMI 33.0-33.9,adult Chronic kidney disease, stage 3b (Multi) Bruit of right carotid artery PVD (peripheral vascular disease) ([facility]) Unspecified peripheral vascular disease documented in this encounter [facility] Work Phone: History of Present illness Narrative* [...] are reviewed and felt to be satisfactory. -[facility]-Marquita 250 DO Work Phone: History of [...] are reviewed and felt to be satisfactory. [facility] 250 DO Work Phone: History of Present [...] we suggest no change and follow-up as ilkhtDF-Mqrwvewtad-Kiirxnve 250 DO Work Phone: Hospital course Narrative No data available for this section [facility] No data available for this section [facility] HospitalProgress note No data available for this section [facility] HospitalReason for referral (narrative)* Consultation (Routine) - Authorized Specialty Diagnoses / Procedures Referred By Contac t Referred To Contact Cardiology Diagnoses Occlusion and stenosis of right carotid artery Procedures Follow Up In Cardiology Tom Morales MD [address] [facility] [address], [address] [address] Angela Braun, PILL [employer] 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 [address] [facility] [address], [address] [address] Referral ID Status Reason Start Date Expiration Date V isits Requested Visits Authorized [id number] Authorized 09/17/2023 09/16/2024 1 1 * Cardiac Stress Testing (Routine) - Pending Review Specialty Diagnoses / Procedures Referred By Contac t Referred To Contact Radiology Diagnoses CAD, multiple vessel S/P CABG x 3 Ischemic cardiomyopathy Occlusion and stenosis of right carotid artery Shortness of breath Procedures Nuclear Stress Test CHG MYOCARDIAL SPECT MULTIPLE STUDIES Tom Morales MD [address] [facility] [address], [address] [address] Referral ID Status Reason Start Date Expiration Date V isits Requested Visits Authorized [id number] Pending Review 09/17/2023 09/16/2024 5 5 [facility] Work Phone: Reason for visit NarrativeNEW SELF REFERRAL [facility] [place] [employer] Other Summary Purpose Family History No Family [...] Brother(V16.51, Z80.51) Status:Active Heart problem: Father Status:Active Relationship Condition Age at Onset Recorded Date/T angelina Not Specified Hypertension Unknown Relationship Condition Age at Onset Recorded Date/T angelina father Coronary artery disease Unknown mother Hypertension Unknown brother Malignant neoplasm of kidney Unknown Advance Directives No Advanced Directives Records Found Advance Directive Response Recorded Date/ Time Advance Directives No May 12, 2017 12:05pm Advance Directive Response Recorded Date/ Time Advance Directives No May 12, 2017 11:05am Chief Complaint LEXI CASTILLO is being seen [...] is of left hip (M16.12) Referral Organization [facility] Referring Provider First Name Ross Referring Provider Last Name Darrian Referring Provider Specialty Pain Medici ne Referred Organization [facility] Referred Provider Da Lozano II Referred Address [address] [place], [place],[address] Referred Provider Specialty Orthopedic S urgery Referral [...] Test CHG MYOCARDIAL SPECT MULTIPLE STUDIES Tom Morales MD [address] [facility] 2, [address] [address] Referral ID Status Reason Start Date Expiration Date V isits Requested Visits Authorized [id number] Pending Review 09/17/2023 09/16/2024 5 5 Chief [...] disease) stage 4, GFR 15-29 ml/min Hyperlipidemia [id number] Secondary hyperparathyroidism Type 2 diabetes mellitus with diabetic chronic kidney disease Chief Complaint presurgical clearenc e. lt total hip M16.12 Z79.899 M81.0 pre surgical testing results RENAL CKD [address] sunshine sent over dr sunshine sent over Reason for Visit OAB (overactive blad edmund) Preoperative examination Primary osteoarthritis of left hip Type 2 diabetes mellitus with hyperglycemia Anemia CKD stage 4 due to type 2 diabetes mellitus OAB (overactive bladder) Primary osteoarthritis of left hip Anemia of renal disease CKD (chronic kidney disease) stage 4, GFR 15-29 ml/min Gout Hyperlipidemia [id number] Secondary hyperparathyroidism Type 2 diabetes mellitus with diabetic chronic kidney disease Acute kidney injury Anemia of renal disease Bilateral hydronephrosis CAD (coronary artery disease) CKD (chronic kidney disease) CKD (chronic kidney disease) stage 4, GFR 15-29 ml/min CKD stage 4 due to type 2 diabetes mellitus History of CHF (congestive heart failure) History of coronary artery bypass graft Hydronephrosis Hydroureter Hyperlipidemia Hypertension [id number] PAD (peripheral artery disease) Type 2 diabetes mellitus with diabetic chronic kidney disease Type 2 diabetes mellitus with hyperglycemia Urinary obstruction, unspecified Chief Complaint presurgical clearenc e. lt total hip M16.12 Z79.899 M81.0 pre surgical testing results RENAL CKD 4 dr sunshine sent over dr sunshine sent [place] [facility] [place] Reason for Visit OAB (overactive blad edmund) Preoperative examination Primary osteoarthritis of left hip Type 2 diabetes mellitus with hyperglycemia Anemia CKD stage 4 due to type 2 diabetes mellitus OAB (overactive bladder) Primary osteoarthritis of left hip Anemia of renal disease CKD (chronic kidney disease) stage 4, GFR 15-29 ml/min Gout Hyperlipidemia [id number] Secondary hyperparathyroidism Type 2 diabetes mellitus with diabetic chronic kidney disease Anemia of renal disease Bilateral hydronephrosis CAD (coronary artery disease) CKD (chronic kidney disease) stage 4, GFR 15-29 ml/min CKD stage 4 due to type 2 diabetes mellitus History of coronary artery bypass graft Hydroureter Hyperlipidemia Hypertension [id number] PAD (peripheral artery disease) Type 2 diabetes mellitus with diabetic chronic kidney disease Type 2 diabetes mellitus with hyperglycemia Urinary obstruction, unspecified Acute kidney injury Chief Complaint pre surgical testing results RENAL CKD [address] over [address] sunshine sent [place] [facility] [place] kidney [facility], Acute metobolic encephalopaty[place] Reason for Visit Anemia CKD stage 4 due to type 2 diabetes mellitus OAB (overactive bladder) Primary osteoarthritis of left hip Anemia of renal disease CKD (chronic kidney disease) stage 4, GFR 15-29 ml/min Gout Hyperlipidemia [id number] Secondary hyperparathyroidism Type 2 diabetes mellitus with diabetic chronic kidney disease Anemia of renal disease Bilateral hydronephrosis CAD (coronary artery disease) CKD (chronic kidney disease) stage 4, GFR 15-29 ml/min CKD stage 4 due to type 2 diabetes mellitus History of coronary artery bypass graft Hydroureter Hyperlipidemia Hypertension [id number] PAD (peripheral artery disease) Type 2 diabetes mellitus with diabetic chronic kidney disease Type 2 diabetes mellitus with hyperglycemia Urinary obstruction, unspecified Acute kidney injury Anemia of renal disease CKD (chronic kidney disease) stage 4, GFR 15-29 ml/min Primary osteoarthritis of left hip Chief Complaint RENAL CKD [address] over dr sunshine sent [place] [facility] [place] [facility], Acute metobolic encephalopaty, [place] RENAL 2 MONTH F/U Reason for Visit Anemia of renal dise ase CKD (chronic kidney disease) stage 4, GFR 15-29 ml/min Gout Hyperlipidemia [id number] Secondary hyperparathyroidism Type 2 diabetes mellitus with diabetic chronic kidney disease Anemia of renal disease Bilateral hydronephrosis CAD (coronary artery disease) CKD (chronic kidney disease) stage 4, GFR 15-29 ml/min CKD stage 4 due to type 2 diabetes mellitus History of coronary artery bypass graft Hydroureter Hyperlipidemia Hypertension [id number] PAD (peripheral artery disease) Type 2 diabetes mellitus with diabetic chronic kidney disease Type 2 diabetes mellitus with hyperglycemia Urinary obstruction, unspecified Acute kidney injury Anemia of renal disease CKD (chronic kidney disease) stage 4, GFR 15-29 ml/min Primary osteoarthritis of left hip Anemia of renal disease CKD (chronic kidney disease) stage 4, GFR 15-29 ml/min Primary osteoarthritis of left hip Sepsis due to urinary tract infection Anemia of renal disease CKD (chronic kidney disease) stage 4, GFR 15-29 ml/min CKD stage 4 due to type 2 diabetes mellitus Hyperlipidemia [id number] Secondary hyperparathyroidism Type 2 diabetes mellitus with diabetic chronic kidney disease Chief Complaint RENAL CKD [address] sent over dr sunshine sent over [facility] [place] kidney [facility], Acute metobolic encephalopaty[place] RENAL 2 MONTH F/U UA frequency, burning Reason for Visit Anemia of renal dise ase CKD (chronic kidney disease) stage 4, GFR 15-29 ml/min Gout Hyperlipidemia [id number] Secondary hyperparathyroidism Type 2 diabetes mellitus with diabetic chronic kidney disease Anemia of renal disease Bilateral hydronephrosis CAD (coronary artery disease) CKD (chronic kidney disease) stage 4, GFR 15-29 ml/min CKD stage 4 due to type 2 diabetes mellitus History of coronary artery bypass graft Hydroureter Hyperlipidemia Hypertension [id number] PAD (peripheral artery disease) Type 2 diabetes mellitus with diabetic chronic kidney disease Type 2 diabetes mellitus with hyperglycemia Urinary obstruction, unspecified Acute kidney injury Anemia of renal disease CKD (chronic kidney disease) stage 4, GFR 15-29 ml/min Primary osteoarthritis of left hip Anemia of renal disease CKD (chronic kidney disease) stage 4, GFR 15-29 ml/min Primary osteoarthritis of left hip Sepsis due to urinary tract infection Anemia of renal disease CKD (chronic kidney disease) stage 4, GFR 15-29 ml/min Gout Hyperlipidemia [id number] Proteinuria Secondary hyperparathyroidism Type 2 diabetes mellitus with diabetic chronic kidney disease Chief Complaint RENAL CKD [address] over [address] sunshine sent [place] [facility] [place] [facility], Acute metobolic encephalopaty, [place] RENAL 2 MONTH F/U UA frequency, burning Reason for Visit Anemia of renal dise ase CKD (chronic kidney disease) stage 4, GFR 15-29 ml/min Gout Hyperlipidemia [id number] Secondary hyperparathyroidism Type 2 diabetes mellitus with diabetic chronic kidney disease Anemia of renal disease Bilateral hydronephrosis CAD (coronary artery disease) CKD (chronic kidney disease) stage 4, GFR 15-29 ml/min CKD stage 4 due to type 2 diabetes mellitus History of coronary artery bypass graft Hydroureter Hyperlipidemia Hypertension [id number] PAD (peripheral artery disease) Type 2 diabetes mellitus with diabetic chronic kidney disease Type 2 diabetes mellitus with hyperglycemia Urinary obstruction, unspecified Acute kidney injury Anemia of renal disease CKD (chronic kidney disease) stage 4, GFR 15-29 ml/min Primary osteoarthritis of left hip Anemia of renal disease CKD (chronic kidney disease) stage 4, GFR 15-29 ml/min Primary osteoarthritis of left hip Sepsis due to urinary tract infection Anemia of renal disease CKD (chronic kidney disease) stage 4, GFR 15-29 ml/min Gout Hyperlipidemia [id number] Proteinuria Secondary hyperparathyroidism Type 2 diabetes mellitus with diabetic chronic kidney disease UTI (urinary tract infection) Chief Complaint Admit Date [facility], Acute metobolic encephalopaty, [place] March 05, 2024 1:13pm RENAL 2 MONTH F/U March 22, 2024 1:52pm UA frequency, burning April 07 10:09am N39.0 April 07, 2024 11:00am CC Adult Risk Stratification May 1:55pm Pre-Surgical Clearance-HIGH RISK Novembe r 2023 9:55am hydronephrosis May 21, 2024 1 :02pm Reason for Visit Admit Date Anemia of renal disease March 05 1:13pm CKD (chronic kidney disease) stage 4, GF R 15-29 ml/min March 05, 2024 1:13pm Primary osteoarthritis of left hip Augus t 2023 1:13pm Sepsis due to urinary tract infection Au karen 2023 1:13pm Anemia of renal disease March 22, 2 024 1:52pm CKD (chronic kidney disease) stage 4, GF R 15-29 ml/min March 22, 2024 1:52pm Gout March 22, 2024 1:52pm Hyperlipidemia March 22, 2024 1:52pm Hypertensive chronic kidney disease with stage 1 through stage 4 chronic ki March 22, 2024 1:52pm Proteinuria March 22, 2024 1:52pm Secondary hyperparathyroidism March 22, 2024 1:52pm Type 2 diabetes mellitus wit h diabetic chronic kidney disease March 22, 2024 1:52pm UTI (urinary tract infection) April 07, 2024 10:09am Chief Complaint Admit Date [facility], Acute metobolic encephalopaty, [place] March 05, 2024 1:13pm RENAL 2 MONTH F/U March 22, 2024 1:52pm UA frequency, burning April 07 10:09am N39.0 April 07, 2024 11:00am CC Adult Risk Stratification May 1:55pm Pre-Surgical Clearance-HIGH RISK Novembe r 2023 9:55am hydronephrosis May 21, 2024 1 :02pm UA, more confused then normal May 142023 10:32am Reason for Visit Admit Date Anemia of renal disease March 05 1:13pm CKD (chronic kidney disease) stage 4, GF R 15-29 ml/min March 05, 2024 1:13pm Primary osteoarthritis of left hip Augus t 2023 1:13pm Sepsis due to urinary tract infection Au karen 2023 1:13pm Anemia of renal disease March 22 1:52pm CKD (chronic kidney disease) stage 4, GF R 15-29 ml/min March 22, 2024 1:52pm Gout March 22, 2024 1:52pm Hyperlipidemia March 22, 2024 1:52pm Hypertensive chronic kidney disease with stage 1 through stage 4 chronic ki March 22, 2024 1:52pm Proteinuria March 22, 2024 1:52pm Secondary hyperparathyroidism March 22, 2024 1:52pm Type 2 diabetes mellitus wit h diabetic chronic kidney disease March 22, 2024 1:52pm UTI (urinary tract infection) April 07, 2024 10:09am UTI (urinary tract infection) May 142023 10:32am Chief Complaint Admit Date [facility], Acute metobolic encephalopaty, [place] March 05, 2024 1:13pm RENAL 2 MONTH F/U March 22, 2024 1:52pm UA frequency, burning April 07 10:09am N39.0 April 07, 2024 11:00am CC Adult Risk Stratification May 1:55pm Pre-Surgical Clearance-HIGH RISK Novembe r 2023 9:55am hydronephrosis May 21, 2024 1 :02pm Urinary tract infection May 25 10:30am UA, more confused then normal May 142023 10:32am Chief Complaint Admit Date CC Adult Risk Stratification May 1:55pm Pre-Surgical Clearance-HIGH RISK Novembe r 2023 9:55am hydronephrosis May 21, 2024 1 :02pm Urinary tract infection N10 May 10:30am UA, more confused then normal May 142023 10:32am hydronephrosis 2024 6:47am Hip pain June 24, 2024 9:59am M16.12 Z79.4 June 28, 2024 10:04am H&P LTHA June 28, 2024 10:19am Diabetes-HIGH RISK July 01, 2024 10:55am spes drop July 15, 2024 12 :41pm Reason for Visit Admit Date Anemia of renal disease May 20 9:55am CKD (chronic kidney disease) stage 4, GF R 15-29 ml/min May 20, 2024 9:55am Preoperative examination May 20 9:55am Primary osteoarthritis of left hip Novem 2023 9:55am UTI (urinary tract infection) May 142023 10:32am Primary osteoarthritis of left hip Decem 2023 10:19am Heart failure, unspecified June 10:55am Primary osteoarthritis of left hip Decem 2023 10:55am Type 2 diabetes mellitus with hyperglyce mima July 01, 2024 10:55am Chief Complaint Admit Date CC Adult Risk Stratification May 1:55pm Pre-Surgical Clearance-HIGH RISK Novembe r 2023 9:55am hydronephrosis May 21, 2024 1 :02pm Urinary tract infection N10 May 10:30am UA, more confused then normal May 142023 10:32am hydronephrosis 2024 6:47am Hip pain June 24, 2024 9:59am M16.12 Z79.4 June 28, 2024 10:04am H&P LTHA June 28, 2024 10:19am Diabetes-HIGH RISK July 01, 2024 10:55am spes drop July 15, 2024 12 :41pm RENAL 4 MONTH F/U August 03, 2024 1 0:50am Reason for Visit Admit Date Anemia of renal disease May 20 9:55am CKD (chronic kidney disease) stage 4, GF R 15-29 ml/min May 20, 2024 9:55am Preoperative examination May 20 9:55am Primary osteoarthritis of left hip Novem 2023 9:55am UTI (urinary tract infection) May 142023 10:32am Primary osteoarthritis of left hip Decem 2023 10:19am Heart failure, unspecified June 10:55am Primary osteoarthritis of left hip Decem 2023 10:55am Type 2 diabetes mellitus with hyperglyce mima July 01, 2024 10:55am Anemia of renal disease August 03 10:50am CKD (chronic kidney disease) stage 4, GF R 15-29 ml/min August 03, 2024 10:50am Gout August 03, 2024 1 0:50am Hyperlipidemia August 03, 2024 1 0:50am Hypertensive chronic kidney disease with stage 1 through stage 4 chronic ki August 03, 2024 10:50am Proteinuria August 03, 2024 1 0:50am Secondary hyperparathyroidism August 032024 10:50am Type 2 diabetes mellitus wit h diabetic chronic kidney disease August 03, 2024 10:50am Chief Complaint Admit Date Hip pain June 24, 2024 9:59am M16.12 Z79.4 June 28, 2024 10:04am H&P LTHA June 28, 2024 10:19am Diabetes-HIGH RISK July 01, 2024 10:55am Hip pain July 12, 2024 7:30am spes drop July 15, 2024 12 :41pm RENAL 4 MONTH F/U August 03, 2024 1 0:50am Reason for Visit Admit Date Primary osteoarthritis of left hip Decem 2023 10:19am Heart failure, unspecified June 10:55am Primary osteoarthritis of left hip Decem 2023 10:55am Type 2 diabetes mellitus with hyperglyce mima July 01, 2024 10:55am Anemia of renal disease August 03 10:50am CKD (chronic kidney disease) stage 4, GF R 15-29 ml/min August 03, 2024 10:50am Gout August 03, 2024 1 0:50am Hyperlipidemia August 03, 2024 1 0:50am Hypertensive chronic kidney disease with stage 1 through stage 4 chronic ki August 03, 2024 10:50am Proteinuria August 03, 2024 1 0:50am Secondary hyperparathyroidism August 032024 10:50am Type 2 diabetes mellitus wit h diabetic chronic kidney disease August 03, 2024 10:50am Additional Source Comments INFORMATION SOURCE (unrecogn ized section and content) DATE CREATED AUTHOR 12/31/2017 [facility] DATE CREATED AUTHOR AUTHOR'S ORGANIZ ATION 01/07/2018 [facility] DATE CREATED AUTHOR AUTHOR'S ORGANIZ ATION 05/17/2020 [facility] DATE CREATED AUTHOR AUTHOR'S ORGANIZ ATION 02/14/2022 [facility] DATE CREATED AUTHOR AUTHOR'S ORGANIZ ATION 07/26/2022 [facility] DATE CREATED AUTHOR AUTHOR'S ORGANIZ ATION 07/26/2022 [employer] DATE CREATED AUTHOR AUTHOR'S ORGANIZ ATION 02/28/2024 Tan Lander [facility] DATE CREATED AUTHOR AUTHOR'S ORGANIZ ATION 02/29/2024 Tan Lander [facility] DATE CREATED AUTHOR AUTHOR'S ORGANIZ ATION 03/01/2024 Tan Jose Alejandro [facility] DATE CREATED AUTHOR AUTHOR'S ORGANIZ ATION 03/04/2024 Tan Lander [facility] DATE CREATED AUTHOR AUTHOR'S ORGANIZ ATION 03/07/2024 Tan Jose Alejandro [facility] DATE CREATED AUTHOR AUTHOR'S ORGANIZ ATION 03/11/2024 Tan Lander [facility] DATE CREATED AUTHOR AUTHOR'S ORGANIZ ATION 05/16/2024 [facility] DATE CREATED AUTHOR AUTHOR'S ORGANIZ ATION 06/10/2024 [facility] DATE CREATED AUTHOR AUTHOR'S ORGANIZ ATION 08/13/2024 [facility] DATE CREATED AUTHOR AUTHOR'S ORGANIZ ATION 09/15/2024 [facility] Care Teams (unrecognized sec tion and content) Team Status: Active Member Role Status Dates Stefan Best MD Primary Care Provider Active Team Status: Inactive Member Role Status Dates Da Lozano II, MD Attending Provider Active Start: June 24, 2024 End: June 24, 2024 Stefan Best MD Primary Care Provider Active Start: June 24, 2024 End: June 24, 2024 Team Status: Inactive Member Role Status Dates Stefan Best MD Primary Care Provider Active Start: June 28, 2024 End: June 28, 2024 Da Lozano II, MD Attending Provider Active Start: June 28, 2024 End: June 28, 2024 Team Status: Inactive Member Role Status Dates Da Lozano II, MD Attending Provider Active Start: June 28, 2024 End: June 28, 2024 Stefan Best MD Primary Care Provider Active Start: June 28, 2024 End: June 28, 2024 Team Status: Inactive Member Role Status Dates Stefan Best MD Primary Care Provide r, Attending Provider Active Start: July 01, 2024 End: July 01, 2024 Gardenia Castellanos CMA Care Coordination Active S tart: July 01, 2024 End: July 01, 2024 Team Status: Inactive Member Role Status Dates Da Lozano II, MD Attending Provider Active Start: July 12, 2024 End: July 12, 2024 Stefan Best MD Primary Care Provider Active Start: July 12, 2024 End: July 12, 2024 Team Status: Inactive Member Role Status Dates Stefan Best MD Primary Care Provide r, Attending Provider Active Start: July 15, 2024 End: July 15, 2024 Team Status: Inactive Member Role Status Dates Stefan Best MD Primary Care Provider Active Start: August 03, 2024 End: August 03, 2024 Leroy Ashby MD Attending Provider Active Start : August 03, 2024 End: August 03, 2024 Team Status: Active Member Role Status Dates Stefan Best MD Primary Care Provide r, Attending Provider Active Start: May 14, 2024 Team Status: Inactive Member Role Status Dates Stefan Best MD Primary Care Provide r, Attending Provider Active Start: May 20, 2024 End: May 20, 2024 Team Status: Inactive Member Role Status Dates Stefan Best MD Primary Care Provider Active Start: May 21, 2024 End: May 21, 2024 Yaniv Natarajan MD Attending Provider Active St art: May 21, 2024 End: May 21, 2024 Team Status: Inactive Member Role Status Dates Stefan Best MD Primary Care Provide r, Attending Provider Active Start: May 25, 2024 End: May 25, 2024 Team Status: Inactive Member Role Status Dates Stefan Best MD Primary Care Provider Active Start: 2024 End: 2024 Yaniv Natarajan MD Attending Provider Active St art: 2024 End: 2024 Team Status: Inactive Member Role Status Dates Stefan Best MD Primary Care Provider Active Start: January 12, 2024 End: January 12, 2024 Leroy Ashby MD Attending Provider Active Start : January 12, 2024 End: January 12, 2024 Team Status: Inactive Member Role Status Dates Stefan Best MD Primary Care Provider Active Start: January 22, 2024 End: January 25, 2024 Alyssa Ramírez MD Emergency Provider Active Start: January 22, 2024 End: January 25, 2024 Norberto Pires DO Admit Provider , Attending Provider Active Start: January 22, 2024 End: January 25, 2024 Gita Azevedo MD Other Provider Active Start: Amada [email or web address] End: January 25, 2024 Yaniv Natarajan MD Other Provider Active Start: January 22, 2024 End: January 25, 2024 Team Status: Active Member Role Status Dates Stefan Best MD Primary Care Provider Active Start: January 23, 2024 Alyssa Ramírez MD Emergency Provider Active Start: January 23, 2024 Norberto Pires DO Admit Provider , Other Provider Active Start: January 23, 2024 Gita Azevedo MD Attending Provider, Other Provider Active Start: January 23, 2024 Yaniv Natarajan MD Other Provider Active Start: January 23, 2024 Team Status: Inactive Member Role Status Dates Stefan Conley Best , MD Primary Care Provide r, Attending Provider Active Start: February 03, 2024 End: February 03, 2024 Team Status: Inactive Member Role Status Ceila Best MD Primary Care Provide r, Attending Provider Active Start: March 05, 2024 End: March 05, 2024 Team Status: Active Member Role Status Celia Best MD Primary Care Provider Active Start: March 17, 2024 Leroy Ashby MD Attending Provider Active Start : March 17, 2024 Team Status: Active Member Role Status Celia Best MD Primary Care Provider Active Start: March 19, 2024 Leroy Ashby MD Attending Provider Active Start : March 19, 2024 Team Status: Inactive Member Role Status Celia Best MD Primary Care Provider Active Start: March 22, 2024 End: March 22, 2024 Leroy Ashby MD Attending Provider Active Start : March 22, 2024 End: March 22, 2024 Team Status: Active Member Role Status Celia [...] 2023 End: December 11, 2023 Team Status: Active Member Role Status Celia Lee MD Primary Care Provider Active Team Status: Inactive Member Role Status Celia Lee MD Primary Care Provider Active Ross Colmenares MD Attending Provider Active Lime Mixer Relationship Specialty Start Date End Date Tom Morales MD [address] [facility] 2, [address] [address] PCP - MSSP ACO Attributed Provider 01/11/23 Stefan Best MD [address] [place] [id number] PCP - General Family Medicine 09/17/23 Lime Mixer Relationship Specialty Start Date End Date Tom Morales MD [address] [place] [address], [address] [address] PCP - MSSP ACO Attributed Provider 01/11/23 Stefan Best MD [address] [place] [id number] PCP - General Family Medicine 09/17/23 Lime Mixer Relationship Specialty Start Date End Date Tom Morales MD [address] [place] [address], [address] [address] PCP - MSSP ACO Attributed Provider 01/11/23 Stefan Best MD [address] [place] [id number] PCP - General Family Medicine 09/17/23 Lime Mixer Relationship Specialty Start Date End Date Tom Morales MD [address] [place] [address], [address] [address] PCP - MSSP ACO Attributed Provider 01/11/23 Stefan Best MD [address] [place] [id number] PCP - General Family Medicine 09/17/23 Lime Mixer Relationship Specialty Start Date End Date Tom Morales MD [address] [facility] 2, [address] [place] [address] [facility] Attributed Provider 01/11/23 Stefan Best MD [address] [place] [address] [place] [address] PCP - General Family Medicine 09/17/23 Team Status: Inactive Member Role Status Dates [...] 2023 End: October 23, 2023 Team Status: Inactive Member Role Status Dates Stefan Best MD Primary Care Provide r, Attending Provider Active Start: April 07, 2024 End: April 07, 2024 Team Status: Inactive Member Role Status Dates Stefan Best MD Attending Provider Active St art: April 07, 2024 End: April 07, 2024 Lime Mixer Relationship Specialty Start Date End Date Stefan Best MD PCP - General Family Medicine 09/17/23 Goals (unrecognized section and content) Goals may be documented in a n alternate sectionNo InformationNo Information No data available for this sectionNo InformationNo InformationNo InformationNo InformationGoals may be documented in an alternate sectionGoals may be documented in an alternate sectionGoals may be documented in an alternate sectionGoals may be documented in an alternate section No data available for this section No data available for this sectionGoals may be documented in an alternate [...] Test CHG MYOCARDIAL SPECT MULTIPLE STUDIES Tom Morales MD [address] [facility] 2, [address] [place] [address] Referral ID Status Reason Start Date Expiration Date V isits Requested Visits Authorized [id number] Pending Review 09/17/2023 09/16/2024 5 5 Reason Comments Follow-up 8m Old WPM patient Specialty Diagnoses / Procedures Referred By Contac t Referred To Contact Cardiology Diagnoses Occlusion and stenosis of right carotid artery Procedures Follow Up In Cardiology Tom Morales MD Smith, Donna K, 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 [address] [facility], [facility] [address] [place] [address] Phone: tel: fax: Referral ID Status Reason Start Date Expiration Date V isits Requested Visits Authorized [id number] Authorized 09/17/2023 09/16/2024 1 1 FOR RECORDS PERTAINING TO PATIENTS WHO ARE [...] BE BASED ON THE PRIMARY CLINICAL RECORDS. [employer] provides no warranty or guarantee of the accuracy or completeness of information in this document.
--- NOTE | 2024-09-26 22:48 | ED_ITS ---
HPI - Weakness General Chief complaint: Weakness Stated complaint: uti Time Seen by Provider: 09/26/24 22:45 Source: patient Mode of arrival: ambulance Limitations: no limitations History of Present Illness HPI Narrative: patient presents from home via [facility] with generalized weakness. States weak for a couple of days. No pain or fever. No dyspnea or nausea. Was not able to get off the commode and Squad was called. She now presents for evaluation. other than feeling weak she feels she is ok Related Data Home Medications ?Medication ?Instructions ?Recorded ?Confirmed allopurinol 300 mg tablet 300 mg PO DAILY 08/30/23 09/26/24 aspirin 81 mg tablet,delayed 81 mg PO DAILY 08/30/23 09/26/24 release carvedilol 25 mg tablet 25 mg PO BID 08/30/23 09/26/24 cholecalciferol (vitamin D3) 125 125 mcg PO DAILY 08/30/23 09/26/24 mcg (5,000 unit) tablet clopidogrel 75 mg tablet 75 mg PO DAILY 08/30/23 09/26/24 furosemide 40 mg tablet 40 mg PO QAM 08/30/23 09/26/24 rosuvastatin 5 mg tablet 5 mg PO DAILY 08/30/23 09/26/24 gabapentin 300 mg capsule 300 mg PO BID 08/31/23 09/26/24 insulin aspart U-100 100 unit/mL 1 sliding scale dose subcut ACHS 08/31/23 09/26/24 (3 mL) subcutaneous pen (Novolog FlexPen U-100 Insulin aspart) ferrous sulfate 325 mg (65 mg 325 mg PO QDAY 09/26/24 09/26/24 iron) tablet (FeroSul) lisinopril 5 mg tablet 5 mg PO QDAY 09/26/24 09/26/24 oxybutynin chloride 15 mg 15 mg PO QDAY 09/26/24 09/26/24 tablet,extended release 24 hr Allergies Allergy/AdvReac Type Severity Reaction Status Date / Time No Known Drug Allergies Allergy Verified 09/26/24 22:45 Review of Systems ROS Status of ROS 10 or more systems reviewed and unremark able except as noted in history and below [facility] Medical History (Updated 09/27/24 @ 01:14 by Isiah Mata MD) Peripheral arterial disease ?I73.9 - Peripheral vascular disease, unspecified (ICD-10) CAD (coronary artery disease) ?I25.10 - Atherosclerotic heart disease of [place] coronary artery without angina pectoris (ICD-10) Stage 3b chronic kidney disease (CKD) ?N18.32 - Chronic kidney disease, stage 3b (ICD-10) HTN (hypertension) ?I10 - Essential (primary) hypertension (ICD-10) Diabetes ?E11.9 - Type 2 diabetes mellitus without complications (ICD-10) Social History Highest level of school completed/degree received: don't know Little interest or pleasure in doing things: not at all Feeling down, depressed, or hopeless: not at all Exam Constitutional Vital Signs, click to edit/add: Last Vital Signs Temp 99.8 F 09/26/24 22:42 Pulse 75 09/26/24 22:42 Resp 16 09/26/24 22:42 BP 159/90 H 09/26/24 22:42 Pulse Ox 97 09/26/24 22:42 O2 Del Method Room Air 09/26/24 22:42 Common normals: no apparent distress, average body habitus, oriented x3, no limitations, healthy appearing, alert and well nourished [facility] Common normals: normocephalic and head/scalp atraumatic Eye Common normals: EOMs intact bilaterally and conjunctivae normal Respiratory Common normals: normal respiratory effort, no retractions, no use of accessory muscles and clear to auscultation bilaterally Cardio Common normals: regular rate, regular rhythm, S1 normal heart sound and S2 normal heart sound GI Common normals: Normal to inspection, nondistended, normoactive bowel sounds present, soft to palpation and non-tender Extremity Common normals: normal to inspection and full ROM Other: trace ankle edema bilat Neuro Common normals: oriented x3, CN's II-XII intact bilaterally, moves all extremities and no focal motor deficits Psych Appearance: grossly normal Course Vital Signs Vital signs: Vital Signs Temperature 99.8 F 09/26/24 22:42 Pulse Rate 75 09/26/24 22:42 Respiratory Rate 16 09/26/24 22:42 Blood Pressure 159/90 H 09/26/24 22:42 Pulse Oximetry 97 09/26/24 22:42 Oxygen Delivery Method Room Air 09/26/24 22:42 Temperature 99.8 F 09/26/24 22:42 Pulse Rate 75 09/26/24 22:42 Respiratory Rate 16 09/26/24 22:42 Blood Pressure 159/90 H 09/26/24 22:42 Pulse Oximetry 97 09/26/24 22:42 Oxygen Delivery Method Room Air 09/26/24 22:42 MDM - Weakness MDM Narrative Medical decision making narrative: patient presents with generalized weakness and UTI. Was not able to get off the commode at home. No respiratory symptoms. cxray with atelectasis but cannot r/o pneumonia. Clinically patient does not appear to have pneumonia. given dose of Rocephin for UTI. labs also demonstrate dehydration with elevated BUN/creat. IV hydration ordered. Patient did receive 1L fluid from Paramedics. Discussed with the hospitalist and patient accepted for obs admission l Lab Data Labs: Lab Results 09/26/24 09/26/24 Range/Units 22:48 22:55 WBC 13.4 H (4.0-11.0) 10^3/uL RBC 3.54 L (4.20-5.40) 10^6/uL Hgb 11.6 L (12.0-16.0) g/dL Hct 36.8 (36.0-48.0) % MCV 104.0 H (81.0-99.0) fL MCH 32.8 (26.7-34.0) pg MCHC 31.5 (29.9-35.2) g/dL RDW 15.7 H (11.0-15.0) % Plt Count 234 (150-450) 10^3/uL MPV 11.3 (9.5-13.5) fL Neut % (Auto) 72.6 (43.0-75.0) % Lymph % (Auto) 16.6 L (20.5-60.0) % [place] % (Auto) 8.4 (1.7-12.0) % Eos % (Auto) 1.3 (0.9-7.0) % Baso % (Auto) 0.4 (0.2-2.0) % Neut # (Auto) 9.7 H (1.4-6.5) 10^3/uL Lymph # (Auto) 2.2 (1.2-3.8) 10^3/uL [place] # (Auto) 1.1 H (0.3-0.8) 10^3/uL Eos # (Auto) 0.2 (0.0-0.7) 10^3/uL Baso # (Auto) 0.1 (0.0-0.1) 10^3/uL Abs Immat Gran (auto) 0.10 H (0.00-0.03) 10^3/uL Imm/Tot Granulo (auto) 0.7 H (0.0-0.5) % Sodium 137 (136-145) mmol/L Potassium 4.7 (3.5-5.1) mmol/L Chloride 100 (98-107) mmol/L Carbon Dioxide 27.9 (21.0-32.0) mmol/L Anion Gap 13.8 BUN 58.0 H (7.0-18.0) mg/dL Creatinine 2.12 H (0.55-1.02) mg/dL Est GFR ( Amer) 27 L (>=60 mL/min/1.73m^2) Est GFR (Non-Af Amer) 22 L (>=60 mL/min/1.73m^2) BUN/Creatinine Ratio 27.4 Glucose 205 H (74-106) mg/dL Calcium 9.5 (8.5-10.1) mg/dL Troponin I High Sens 21.9 (4.0-51.3) pg/mL Urine Color Yellow (YELLOW) Urine Clarity Clear (CLEAR) Urine pH 6.5 (5.0-9.0) Ur Specific [place] 1.015 (1.005-1.025) Urine Protein 100 A (NEG/TRACE) mg/dL Urine Glucose (UA) Negative (NEGATIVE) mg/dL Urine Ketones Negative (NEGATIVE) mg/dL Urine Occult Blood Moderate A (NEGATIVE) Urine Nitrite Negative (NEGATIVE) Urine Bilirubin Negative (NEGATIVE) Urine Urobilinogen 0.2 (0.2-1.0) EU/dL Ur Leukocyte Esterase Large A (NEGATIVE) Urine RBC 2-5 A (0-2) #/HPF Urine WBC 50-75 A (NONE SEEN) #/HPF Ur Squamous Epith Cells Rare (NONE/RARE) #/LPF Ur Transition Epith Cell Few A (NONE SEEN) #/LPF Urine Crystals None seen (None Seen) #/HPF Urine Bacteria Large A (NONE SEEN) #/HPF Urine Casts None seen (NONE SEEN) #/LPF Urine Mucus None seen (NONE SEEN) Ur Culture Indicated? Yes-[facility] [place] Discharge Plan Discharge Chief Complaint: Weakness Clinical Impression: Dehydration, Acute UTI, Generalized weakness Patient Disposition: Admitted as Observation Prescriptions / Home Meds: No Action allopurinol 300 mg tablet 300 mg PO DAILY aspirin 81 mg tablet,delayed release (DR/EC) 81 mg PO DAILY carvedilol 25 mg tablet 25 mg PO BID cholecalciferol (vitamin D3) 125 mcg (5,000 unit) tablet 125 mcg PO DAILY clopidogrel 75 mg tablet 75 mg PO DAILY furosemide 40 mg tablet 40 mg PO QAM rosuvastatin 5 mg tablet 5 mg PO DAILY gabapentin 300 mg capsule 300 mg PO BID insulin aspart U-100 [Novolog FlexPen U-100 Insulin] 100 unit/mL (3 mL) insulin pen 1 sliding scale dose SUBCUT ACHS ferrous sulfate [FeroSul] 325 mg (65 mg iron) tablet 325 mg PO QDAY lisinopril 5 mg tablet 5 mg PO QDAY oxybutynin chloride 15 mg tablet extended release 24hr 15 mg PO QDAY Print Language: Bulgarian Referrals: Olivia Cazares MD [Primary Care Provider] - 1 week
--- NOTE | 2024-09-26 22:51 | ECG_ITS ---
[facility] Test Date: 2024-09-26 Pat Name: ESTHER TATUM Department: Room: - Gender: Female Enrollment Specialist: : [id number] Requested By: [id number] Order Number: [id number] Reading MD: HI PEREZ M.D. Measurements Intervals [place] Rate: 72 P: 14 WI: 200 QRS: -21 QRSD: 110 T: 155 QT: 416 QTc: 440 Interpretive Statements 1100 Sinus rhythm 3334 Anterolateral myocardial infarction, age undetermined 3632 Inferior myocardial infarction, probably recent 5234 Left ventricular hypertrophy with repolarization abnormality 8102 Low QRS voltage in chest leads 9150 abnormal ECG Compared to ECG 08/30/2023 20:07:13 Low QRS voltage now present Myocardial infarct finding still present Electronically Signed On 09-27-2024 5:19:26 EDT by HI PEREZ M.D.
[2024-09-26 23:02] LABS: Bilirubin Urine NEGATIVE (NEGATIVE); Blood Urine MODERATE (NEGATIVE); Clarity Urine CLEAR (CLEAR); Color Urine YELLOW (YELLOW); Glucose Urine UA NEGATIVE (NEGATIVE); Ketones Urine NEGATIVE (NEGATIVE); Leukocyte Esterase Urine LARGE (NEGATIVE); Nitrite Urine NEGATIVE (NEGATIVE); Protein Urine 100 mg/dL (NEG/TRACE); Specific Gravity Urine 1.015 (1.005-1.025); Urobilinogen Urine 0.2 EU/dL (0.2-1.0); pH Urine 6.5 (5.0-9.0)
[2024-09-26 23:03] LABS: Basophils Absolute Auto 0.1 10^3/uL (0.0-0.1); Basophils Percent Auto 0.4 % (0.2-2.0); Eosinophils Absolute Auto 0.2 10^3/uL (0.0-0.7); Eosinophils Percent Auto 1.3 % (0.9-7.0); Hematocrit 36.8 % (36.0-48.0); Hemoglobin 11.6 g/dL (12.0-16.0); Immature Granulocytes Pct Auto 0.7 % (0.0-0.5); Lymphocytes Absolute Auto 2.2 10^3/uL (1.2-3.8); Lymphocytes Percent Auto 16.6 % (20.5-60.0); Mean Corpuscular HGB Conc 31.5 g/dL (29.9-35.2); Mean Corpuscular Hemoglobin 32.8 pg (26.7-34.0); Mean Platelet Volume 11.3 fL (9.5-13.5); Monocytes Absolute Auto 1.1 10^3/uL (0.3-0.8); Monocytes Percent Auto 8.4 % (1.7-12.0); Neutrophils Absolute Auto 9.7 10^3/uL (1.4-6.5); Neutrophils Percent Auto 72.6 % (43.0-75.0); Platelet Count 234 10^3/uL (150-450); Red Blood Count 3.54 10^6/uL (4.20-5.40); Red Cell Distribution Width 15.7 % (11.0-15.0); White Blood Count 13.4 10^3/uL (4.0-11.0)
[2024-09-26 23:08] VITALS: PULSE 72
[2024-09-26 23:09] LABS: Bacteria Urine LARGE #/HPF (NONE SEEN); Cast Seen? NONE SEEN #/LPF (NONE SEEN); Crystals Seen? None Seen #/HPF (None Seen); Mucus Urine NONE SEEN (NONE SEEN); Squamous Epithelial Cell Urine RARE #/LPF (NONE/RARE); Transitional Epi Cells Urine FEW #/LPF (NONE SEEN); Urine Culture Indicated YES-FRMC; WBC Urine 50-75 #/HPF (NONE SEEN)
[2024-09-26 23:20] LABS: Anion Gap 13.8; BUN Creatinine Ratio 27.4; Calcium 9.5 mg/dL (8.5-10.1); Carbon Dioxide 27.9 mmol/L (21.0-32.0); Chloride 100 mmol/L (98-107); Estimated GFR (African America 27 (>=60 mL/min/1.73m^2); Estimated GFR (Non-African Ame 22 (>=60 mL/min/1.73m^2); Glucose 205 mg/dL (74-106); Potassium 4.7 mmol/L (3.5-5.1); Sodium 137 mmol/L (136-145); Troponin I High Sensitivity 21.9 pg/mL (4.0-51.3)
[2024-09-27] VITALS (10 sets, daily range): BP systolic 126–155; BP diastolic 69–79; PULSE 62–81; TEMP 36.3–36.8; O2SAT 92–93; BMI 33.1
[2024-09-27] MEDS: CEFTRIAXONE 1,000 MG in 0.9 % SODIUM CHLORIDE 50 ML 100 MG IV (01:59)
[2024-09-27] MEDS: 0.9 % SODIUM CHLORIDE 1,000 ML 100 ML IV ×2 (01:59→03:40)
--- OUTSIDE RECORDS SUMMARY | 2024-09-27 02:39 | XMS_ITS | CCD ---
Author Organization [facility] Care Team Providers Care Pharmacy Sales Assistant Name Role Phone BLAKE KUO Unavailable Unavailable SHITAL, LI Unavailable Unavailable BLAKE KUO Unavailable Unavailable SHITAL, LI Unavailable Unavailable PHYSICIAN, DEFAULT Unavailable Unavailable PHYSICIAN, DEFAULT Unavailable Unavailable Li Lee Unavailable Unavailable Unavailable SHITAL, DR LI Conley Primary Care Unavailable LEE, DR LI Conley Admitting Unavailable LEE, DR LI Conley Attending Unavailable LEE, DR LI Conley Consulting Unavailable [place], DR Ren Consulting Unavailable LEE, DR LI [...] Colmenares Unavailable Maxine Llanes Primary Care Physician [phone] Da Lozano II Unavailable Tom Morales MD Unavailable Stefan Best MD Primary Care Provider MD Stefan Best Primary Care Provider MD Da Lozano II Attending Provider MD Alyssa Ramírez Emergency Provider DO Norberto Pires Admit Provider DO Rl Piresistopher Attending Provider MD Gita Azevedo Other Provider MD Yaniv Natarajan Other Provider [phone] Shraddha, DATABASE PROGRAMMER ANALYST Maxine L Attending Unavailable Shraddha, DATABASE PROGRAMMER ANALYST Maxine L Attending Unavailable Shraddha, DATABASE PROGRAMMER ANALYST Maxine L Attending Unavailable Shraddha, DATABASE PROGRAMMER ANALYST Maxine L Attending Unavailable Shraddha, DATABASE PROGRAMMER ANALYST Maxine L Attending Unavailable Shraddha, DATABASE PROGRAMMER ANALYST Maxine L Attending Unavailable COOKYaniv P Attending Unavailable Shraddha, DATABASE PROGRAMMER ANALYST Maxine L Attending Unavailable Shraddha, DATABASE PROGRAMMER ANALYST Maxine L Admitting Unavailable Shraddha, DATABASE PROGRAMMER ANALYST Maxine L Attending Unavailable Shraddha, DATABASE PROGRAMMER ANALYST Maxine L Admitting Unavailable COOKYaniv P Attending Unavailable COOKYaniv Referring Unavailable COOKYaniv Attending Unavailable Shraddha, DATABASE PROGRAMMER ANALYST Maxine L Attending Unavailable Shraddha, DATABASE PROGRAMMER ANALYST Maxine L Attending Unavailable Ross, Abljit Attending Unavailable Damian RUSS Admitting Unavailable OJUKWU, Mbanefo Attending Unavailable OJUKWU, Mbanefo Admitting Unavailable STEFAN BEST Primary Care Physician [phone] KADE Mbyokastafo Attending Unavailable KADE, Mbanefo Admitting Unavailable MD Stefan Best Primary Care Provider MD Stefan Best Attending Provider TOM MORALES Referring Unavailable STEFAN BEST Primary Care Unavailable TOM MORALES Referring Unavailable STEFAN BEST Primary Care Unavailable Stefan Best MD Attending Provider Stefan Best MD Primary Care Provider Yaniv Natarajan MD Attending Provider Yaniv NATARAJAN Attending Unavailable Stefan Best MD Attending Provider Da Lozano MD Attending Provider Stefan Best MD Primary Care Provider TOM MORALES Attending Unavailable BEST, STEFAN E Primary Care Unavailable BRAUN ANGELA Liang Attending Unavailable TOM MORALES Referring Unavailable BEST, STEFAN E Primary Care Unavailable Stefan Best MD Primary Care Provider [phone] Stefan Best MD Attending Provider [phone] Da Lozano II Admitting Unavailabl e [place] II, Da Artis Attending Unavailabl e Best, [...] Unavailable Da Lozano II Admitting Unavailabl e [place] II, Da Artis Attending Unavailabl e Best, Stefan E Primary Care Unavailable Da Lozano II Attending Unavailabl e ShawneeDa atkinson II Admitting Unavailabl e Best, Stefan E Admitting Unavailable Best, Stefan E Primary Care Unavailable Stefan Best Attending Unavailable Allergies Allergy Classification Reported Allergen(s) Allergy Type Date of Onset Reaction(s) Facility (15 sources) Angiotensin Converting Enzyme (Williams) Inhibitors; Translations: [WILLIAMS Inhibitors] Allergy to drug (finding) 3 Hyperkalemia, Other [facility] [place] Rep[facility] (20 sources) atorvastatin; Translations: [atorvastatin] Drug Allergy 3 Myalgia [facility] (13 sources) Hmg-Coa Reductase Inhibitors (Statins); Translations: [Statins] Allergy to drug (finding) Myalgia [place] [address] DO Work Phone: (5 sources) rosuvastatin; Translations: [rosuvastatin] Drug Allergy Myalgia [place] [address] DO Work Phone: (20 sources) Spironolactone; Translations: [spironolactone] Drug Allergy 3 Other [place] [address] DO Work Phone: (1 source) Iodine (And Iodine Containting Drugs) Drug allergy (disorder) [facility] Repository (1 source) Pravastatin Drug Allergy [facility] (2 sources) Simvastatin Drug Allergy [facility] (1 source) Sulfonamides (Antibiotic) Drug allergy (disorder) [facility] (6 sources) Adhesive Tape Drug allergy NebuAd Other (11 sources) Pravastatin; Translations: [pravastatin] Drug Allergy Unknown [facility] (12 sources) Angiotensin-conv erting enzyme inhibitor agent Drug Allergy 3 Other [facility] (14 sources) HMG-CoA reductase inhibitor; Translations: [CIIXSEZ-XNE-SHI REDUCTASE INHIBITORS] Drug Allergy 3 Myalgia [facility] Work Phone: (13 sources) Adhesive Tape; Translations: [adhesive tape] Allergy to substance 4 rash [facility] (13 sources) blue dye; Translations: [blue dye] Allergy to substance 4 Nausea [facility] Comment on above: dye used with xray c auses patient to vomit (7 sources) semaglutide; Translations: [semaglutide] Allergy to substance 4 nausea, vomiting [facility] Medications Current Medications Medication Drug Class(es) Dates [...] # 90 cap(s), Refills(s) 1, Pharmacy: [facility]5, 140.6, cm, 02/10/23 11:29:00 EDT, [...] 2024 3:21pm take 1 capsule by mo [facility] every twenty-four hours Colace 100 MG [...] Start: 06-15-2021 take 1 capsule by mo [facility] twice daily Gabapentin 300 MG Oral [...] 25, 2017 11:51am take 1 [facility]-four hours Gabapentin 300 MG [...] scale, # 15 mL, Refills(s) 3, Pharmacy: [facility], 143, cm, 08/20/23 16:15:00 EST, Height/Length [...] needed, # 15 mL, Refills(s) 1, Pharmacy: [facility], 143, cm, 08/20/23 16:15:00 EST, Height/Length [...] 45 mL, Refills(s) 2, Pharmacy: [facility], 143, cm, 08/20/23 16:15:00 EST, Height/Length [...] Daily, # 15 mL, Refills(s) 2, Pharmacy: [place] [id number], 140.6, cm, 02/10/23 11:29:00 EDT, Height/Length Dosing, 79.2, kg, 02/10/23 11:29:00 EDT, Weight Dosing Start Date: 02/10/23 Status: Ordered Start: 02-07-2023 Basaglar KwikP en 100 units/mL subcutaneous solution See Instructions, 50 units daily, # 15 mL, Refills(s) 0, Pharmacy: [place] [id number] Start Date: 02/07/23 Status: Ordered Start: 01-31-2021 [...] Daily, # 90 tab(s), Refills(s) 0, Pharmacy: [facility] 1155, 140.6, cm, 02/10/23 11:29:00 EDT, [...] Quantity: 60 Refills: 0 Ordered: 19-Dec-2016 David 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-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..] 4 01-22-2024 Episodic Other aftercare (3 sources) 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; Translations: [long-term (current) use of insulin (Multi)] Onset: 3 Episodic Other aftercare (1 source) Other custodial (current) drug therapy; Translations: [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] Onset: 4 Episodic Other [...] 07-15-2024 Appearance (U) Urine appearance Abnormal Clear [facility] Bacteria [Presence] in Urine by AutomatedOrdered By: Leroy Ashby on 07-15-2024 Bacteria Auto Ql (U) Bacteria [Presence] in Urine by Automated High None Seen [facility] Bilirubin Test strip Ql (U)O rdered By: Leroy Ashby on 07-15-2024 Bilirubin Ql (U) Bilirubin.total [Presence] in Urine by Test strip Negative [facility] Color Auto (U)Ordered By: Ab carl Ashby on 07-15-2024 Color (U) Color of Urine by Auto Yellow [facility] Creatinine [Mass/volume] in UrineOrdered By: Leroy Ashby on 07-15-2024 Creatinine (U) [Mass/Vol] Creatinine [Mass/volume] in Urine [facility] Comment on above: No reference range e stablished Dipstick and Microscopicon 0 07-15-2024 Appearance (U) Cloudy Critically abnormal Clear [facility] Comment on above: Order Comment: add o n [id number] Performed By: #### H S TROP, CKMB, CK #### [facility] [address] Bacteria,Urine 2+ High None Seen [facility] Comment on above: Order Comment: add o n [id number] Performed By: #### H S TROP, CKMB, CK #### [address] Bilirubin,Urine Negative Normal Negative [facility] Comment on above: Order Comment: add o n [id number] Performed By: #### H S TROP, CKMB, CK #### [address] Color (U) Colorless Normal Yellow [facility] Comment on above: Order Comment: add o n [id number] Performed By: #### H S TROP, CKMB, CK #### [address] Glucose Ql (U) Normal Normal Normal [facility] Comment on above: Order Comment: add o n [id number] Performed By: #### H S TROP, CKMB, CK #### [address] Hyaline Casts,Urine 0 [LPF] Normal 0-8 [facility] Comment on above: Order Comment: add o n [id number] Performed By: #### H S TROP, CKMB, CK #### [address] Ketones Ql (U) Negative Normal Negative [facility] Comment on above: Order Comment: add o n [id number] Performed By: #### H S TROP, CKMB, CK #### [address] Leukocyte esterase Test strip Ql (U) 4+ High Negative [facility] Comment on above: Order Comment: add o n [id number] Performed By: #### H S TROP, CKMB, CK #### [place] [address] [place] Mucus,Urine Rare Normal [facility] Comment on above: Order Comment: add o n [id number] Result Comment: PERF ORMED BY: [place] [address] PATHOLOGIST RECREATION ASSISTANT RADHA DURAN M.D. Performed By: #### H S TROP, CKMB, CK #### [place] [address] [place] Nitrite,Urine Negative Normal Negative [facility] Comment on above: Order Comment: add o n [id number] Performed By: #### H S TROP, CKMB, CK #### [address] Occult Blood,Urine 1+ High Negative [facility] Comment on above: Order Comment: add o n [id number] Performed By: #### H S TROP, CKMB, CK #### [address] pH (U) 6.5 [pH] Normal 5.0-9.0 [facility] Comment on above: Order Comment: add o n [id number] Performed By: #### H S TROP, CKMB, CK #### [address] Protein (U) [Mass/Vol] 50 mg/dL High Negative [facility] Comment on above: Order Comment: add o n [id number] Performed By: #### H S TROP, CKMB, CK #### [address] RBC,Urine 5 [HPF] High 0-4 [facility] Comment on above: Order Comment: add o n [id number] Performed By: #### H S TROP, CKMB, CK #### [address] Specificy [place],Urine 1.009 Normal 1.001-1.030 [facility] Comment on above: Order Comment: add o n [id number] Performed By: #### H S TROP, CKMB, CK #### [address] Squamous Epithelial Cell,Urine 3 [HPF] High 0-2 [facility] Comment on above: Order Comment: add o n [id number] Performed By: #### H S TROP, CKMB, CK #### [address] Urobilinogen,Urine Normal Normal Normal [facility] Comment on above: Order Comment: add o n [id number] Performed By: #### H S TROP, CKMB, CK #### [facility] [address] [place] [address] [place] WBC CLUMP, Urine Many High None Seen [facility] Comment on above: Order Comment: add o n [id number] Performed By: #### H S TROP, CKMB, CK #### [facility] [address] [place] [address] [place] WBC,Urine Innumerable High 0-4 [facility] Comment on above: Order Comment: add o n [id number] Performed By: #### H S TROP, CKMB, CK #### [facility] [address] Epithelial cells.squamous [# /area] in Urine sediment by Automated countOrdered By: Leroy Ashby on 07-15-2024 Epithelial cells.squamous Auto (Urine sed) [#/Area] Epithelial cells.squamous [#/area] in Urine sediment by Automated count High 0-2 [facility] Erythrocytes [#/area] in Uri ne sediment by Automated countOrdered By: Leroy Ashby on 07-15-2024 RBC Auto (Urine sed) [#/Area] Erythrocytes [#/area] in Urine sediment by Automated count High 0-4 [facility] Glucose [Mass/volume] in Uri ne by Test stripOrdered By: Leroy Ashby on 07-15-2024 Glucose Test strip (U) [Mass/Vol] Glucose [Mass/volume] in Urine by Test strip Normal [facility] Hemoglobin Test strip Ql (U) Ordered By: Leroy Ashby on 07-15-2024 Hemoglobin Ql (U) Hemoglobin [Presence] in Urine by Test strip High Negative [facility] Hyaline casts [#/area] in Ur ine sediment by Automated countOrdered By: Leroy Ashby on 07-15-2024 Hyaline casts Auto (Urine sed) [#/Area] Hyaline casts [#/area] in Urine sediment by Automated count 0-8 [facility] Ketones Test strip Ql (U)Ord ered By: Leroy Ashby on 07-15-2024 Ketones Ql (U) Ketones [Presence] in Urine by Test strip Negative [facility] Leukocyte clumps [Presence] in Urine by AutomatedOrdered By: Leroy Ashby on 07-15-2024 Leukocyte clumps Auto Ql (U) Leukocyte clumps [Presence] in Urine by Automated High None Seen [facility] Leukocyte esterase [Presence ] in Urine by Test stripOrdered By: Leroy Ashby on 07-15-2024 Leukocyte esterase Test strip Ql (U) Leukocyte esterase [Presence] in Urine by Test strip High Negative [facility] Leukocytes [#/area] in Urine sediment by Automated countOrdered By: Leroy Ashby on 07-15-2024 WBC Auto (Urine sed) [#/Area] Leukocytes [#/area] in Urine sediment by Automated count High 0-4 [facility] Mucus [Presence] in Urine by AutomatedOrdered By: Leroy Ashby on 07-15-2024 Mucus Auto Ql (U) Mucus [Presence] in Urine by Automated [facility] Nitrite Test strip Ql (U)Ord ered By: Leroy Ashby on 07-15-2024 Nitrite Ql (U) Nitrite [Presence] in Urine by Test strip Negative [facility] Protein Creat Ratio Ur Rando mon 07-15-2024 Creatinine, Urine (Random) 25.00 mg/dL Normal [facility] Comment on above: Result Comment: No r eference range established Performed By: #### P T, BMP, PTT, CBC #### [address] Protein (U) [Mass/Vol] 66 mg/dL High 0-9 [facility] Comment on above: Performed By: #### P T, BMP, PTT, CBC #### [address] Urine Protein/Creatinine Ratio 2640 mg/g{Cre} High 0-200 [facility] Comment on above: Result Comment: PERF ORMED BY: [place] [address] PATHOLOGIST RECREATION ASSISTANT RADHA DURAN M.D. Performed By: #### P T, BMP, PTT, CBC #### [place] [id number] [place] Protein Test strip (U) [Mass /Vol]Ordered By: Leroy Akinsr on 07-15-2024 Protein (U) [Mass/Vol] Protein [Mass/volume] in Urine by Test strip High Negative [facility] Protein [Mass/volume] in Uri neOrdered By: Leroy Isma on 07-15-2024 Protein (U) [Mass/Vol] Protein [Mass/volume] in Urine High 0-9 [facility] Specific gravity Test strip (U) [Rel density]Ordered By: Leroy Isma on 07-15-2024 Specific gravity (U) [Rel density] Specific gravity of Urine by Test strip 1.001-1.030 [facility] Urine Cultureon 07-15-2024 Bacteria identified Cx Nom (U) 75,000 colonies/ml mixed bacterial skin contaminants 2 Days PERFORMED BY: [place] [address] PATHOLOGIST RECREATION ASSISTANT RADHA DURAN M.D. Normal [facility] Comment on above: Performed By: #### H S TROP, CKMB, CK #### [address] Urine cultureOrdered By: Carol Ashby on 07-15-2024 Bacteria identified Cx Nom (U) Urine culture [facility] Urine protein/creatinine rat ioOrdered By: Leroy Isma on 07-15-2024 Protein/Creatinine (U) [Ratio] Urine protein/creatinine ratio High 0-200 [facility] Urobilinogen Test strip (U) [Mass/Vol]Ordered By: Leroy Ashby on 07-15-2024 Urobilinogen (U) [Mass/Vol] Urobilinogen [Mass/volume] in Urine by Test strip Normal [facility] pH Test strip (U)Ordered By: Leroy Ashby on 07-15-2024 pH (U) pH of Urine by Test strip 5.0-9.0 [facility] A1C with Estimated Average G svenn 06-28-2024 Glucose [Mass/Vol] 189 mg/dL Normal [facility] Comment on above: Result Comment: PERF ORMED BY: [facility] [address] [place] [address] PATHOLOGIST RECREATION ASSISTANT RADHA DURAN M.D. Performed By: #### H S TROP, CKMB, CK #### [facility] [address] HbA1c (Bld) [Mass fraction] 8.2 % High 4.3-5.6 [facility] Comment on above: Result Comment: Incr eased risk for diabetes: 5.7 - 6.4 diabetes: >6.4 glycemic control for adults with diabetes: <7.0 Performed By: #### H S TROP, CKMB, CK #### [facility] [address] Albumin [Mass/volume] in Ser um or Plasma by Bromocresol green (BCG) dye binding methoOrdered By: Leroy Ashby on 06-28-2024 Albumin BCG dye [Mass/Vol] Albumin [Mass/volume] in Serum or Plasma by Bromocresol green (BCG) dye binding metho 3.5-5.7 [facility] Blood estimated average gluc ose determination by estimation from glycated hemoglobinOrdered By: Da Lozano on 06-28-2024 Average glucose Estimated from glycated hemoglobin (Bld) [Mass/Vol] Glucose mean value [Mass/volume] in Blood Estimated from glycated hemoglobin [facility] Calcium [Mass/volume] in Ser um or PlasmaOrdered By: Leroy Ashby on 06-28-2024 Calcium [Mass/Vol] Calcium [Mass/volume] in Serum or Plasma 8.6-10.3 [facility] Carbon dioxide, total [Moles /volume] in Serum or PlasmaOrdered By: Leroy Ashby on 06-28-2024 CO2 [Moles/Vol] Carbon dioxide, total [Moles/volume] in Serum or Plasma 21.0-31.0 [facility] Chloride [Moles/volume] in S pal[place] or PlasmaOrdered By: Leroy Ashby on 06-28-2024 Chloride [Moles/Vol] Chloride [Moles/volume] in Serum or Plasma 98-107 [facility] Creatinine [Mass/volume] in Serum or PlasmaOrdered By: Leroy Ashby on 06-28-2024 Creatinine [Mass/Vol] Creatinine [Mass/volume] in Serum or Plasma High 0.60-1.20 [facility] Erythrocyte distribution wid th Auto (RBC) [Ratio]Ordered By: Leroy Ashby on 06-28-2024 Erythrocyte distribution width (RBC) [Ratio] Erythrocyte distribution width [Ratio] by Automated count High 11.9-15.3 [facility] Ferritinon 06-28-2024 Ferritin [Mass/Vol] 96.0 ng/mL Normal 11.0-306.8 [facility] Comment on above: Performed By: #### H S TROP, CKMB, CK #### [facility] [address] Ferritin [Mass/volume] in Se rum or PlasmaOrdered By: Leroy Ashby on 06-28-2024 Ferritin [Mass/Vol] Ferritin [Mass/volume] in Serum or Plasma 11.0-306.8 [facility] Folate [Mass/volume] in Seru m or PlasmaOrdered By: Leroy Ashby on 06-28-2024 Folate [Mass/Vol] Folate [Mass/volume] in Serum or Plasma >5.9 [facility] Comment on above: Folate reference ran ge: >5.9 ng/mlThe WHO technical consultation on folate and vitamin [id number] has determined that folate concentrations lessthan 4 ng/ml are considered deficient. Free K+L LT Chains, Qn, Son 06-28-2024 Free Gibbs Light Chains, S 113.1 mg/L High 3.3-19.4 [facility] Comment on above: Performed By: #### H S TROP, CKMB, CK #### [facility] [address] [place] [id number] [facility] Free Lambda Light Chains, S 52.4 mg/L High 5.7-26.3 [facility] Comment on above: Performed By: #### H S TROP, CKMB, CK #### [facility] [address] [place] [id number] [place] Gibbs/Lambda Ratio, S 2.16 High 0.26-1.65 [facility] Comment on above: Result Comment: Perf ormed at: CB - [facility] [address], [place], [place] [id number] Sleeve Turner: Mohan Talbert PhD, Phone: [phone] PERFORMED BY: [place] [address] PATHOLOGIST RECREATION ASSISTANT RADHA DURAN M.D. Performed By: #### H S TROP, CKMB, CK #### [address] Glucose [Mass/volume] in Ser um or PlasmaOrdered By: Leroy Ashby on 06-28-2024 Glucose [Mass/Vol] Glucose [Mass/volume] in Serum or Plasma High 70-100 [facility] Comment on above: ADA recommended refe rence rangeRandom Glucose Reference Range is dependent on time and content of last meal. Glucose of more than 200 mg/dL in a nonstressed, ambulatory subject supports the diagnosis of Diabetes Mellitus. Hematocrit Auto (Bld) [Volum e fraction]Ordered By: Leroy Ashby on 06-28-2024 Hematocrit (Bld) [Volume fraction] Hematocrit [Volume Fraction] of Blood by Automated count 34.0-46.4 [facility] Hemoglobin A1c/Hemoglobin.to nathen in BloodOrdered By: Da Lozano on 06-28-2024 HbA1c (Bld) [Mass fraction] Hemoglobin A1c percentage High 4.3-5.6 [facility] Comment on above: Increased risk for d iabetes: 5.7 - 6.4diabetes: >6.4glycemic control for adults with diabetes: <7.0 Hemoglobin [Mass/volume] in BloodOrdered By: Leroy Ashby on 06-28-2024 Hemoglobin (Bld) [Mass/Vol] Hemoglobin [Mass/volume] in Blood 11.8-15.4 [facility] Hemogram CBC Without Diffon 06-28-2024 Erythrocyte distribution width (RBC) [Ratio] 15.9 % High 11.9-15.3 [facility] Comment on above: Performed By: #### H S TROP, CKMB, CK #### [address] Hematocrit (Bld) [Volume fraction] 37.6 % Normal 34.0-46.4 [facility] Comment on above: Performed By: #### H S TROP, CKMB, CK #### [address] Hemoglobin (Bld) [Mass/Vol] 12.2 g/dL Normal 11.8-15.4 [facility] Comment on above: Performed By: #### H S TROP, CKMB, CK #### [address] MCH (RBC) [Entitic mass] 31.7 pg Normal 24.7-34.3 [facility] Comment on above: Performed By: #### H S TROP, CKMB, CK #### [address] MCV (RBC) [Entitic vol] 98.3 fL Normal 80-100 [facility] Comment on above: Performed By: #### H S TROP, CKMB, CK #### [address] Mean Corpuscular HGB Conc 32.3 g/dL Normal 32.0-35.0 [facility] Comment on above: Performed By: #### H S TROP, CKMB, CK #### [address] Platelet mean volume (Bld) [Entitic vol] 9.1 fL Normal 6.3-10.7 [facility] Comment on above: Result Comment: PERF ORMED BY: [place] [address] PATHOLOGIST RECREATION ASSISTANT RADHA DURAN M.D. Performed By: #### H S TROP, CKMB, CK #### [address] Platelets (Bld) [#/Vol] 229 10*3/uL Normal 150-450 [facility] Comment on above: Performed By: #### H S TROP, CKMB, CK #### [facility] [address] RBC (Bld) [#/Vol] 3.83 10*6/uL Normal 3.60-5.00 [facility] Comment on above: Performed By: #### H S TROP, CKMB, CK #### [facility] [address] [place] [id number] [facility] WBC (Bld) [#/Vol] 9.2 10*3/uL Normal 3.8-11.6 [facility] Comment on above: Performed By: #### H S TROP, CKMB, CK #### [facility] [address] [place] [address] [place] Immunofixation,Serumon 06-28 Immunofixation, Serum Comment: Normal . [facility] Comment on above: Result Comment: Pres ence of monoclonal protein is unclear at this time. Suggest repeat in 3 to 6 months if clinically indicated. Performed By: #### H S TROP, CKMB, CK #### [place] [address] [place] Immunoglobulin A, Serum 394 mg/dL Normal 64-422 [facility] Comment on above: Performed By: #### H S TROP, CKMB, CK #### [facility] [address] [id number] [facility] Immunoglobulin G 1087 mg/dL Normal 586-1602 [facility] Comment on above: Performed By: #### H S TROP, CKMB, CK #### [facility] [address] [place] [address] [place] Immunoglobulin M, Serum 86 mg/dL Normal 26-217 [facility] Comment on above: Result Comment: Perf ormed at: - [facility] [address] [id number] Sleeve Turner: Mohan Talbert PhD, Phone: [phone] Performed By: #### H S TROP, CKMB, CK #### [facility] [address] [id number] [place] Iron [Mass/volume] in Serum or PlasmaOrdered By: Leroy Ashby on 06-28-2024 Iron [Mass/Vol] Iron [Mass/volume] in Serum or Plasma 50-212 [facility] Iron and TIBC Profileon 06-13 % Iron Saturation 24.4 % Normal 20-50 [facility] Comment on above: Performed By: #### H S TROP, CKMB, CK #### [facility] [address] [id number] [facility] Iron [Mass/Vol] 66 ug/dL Normal 50-212 [facility] Comment on above: Performed By: #### H S TROP, CKMB, CK #### [facility] [address] Total Iron Binding Capacity 270 ug/dL Normal 255-450 [facility] Comment on above: Performed By: #### H S TROP, CKMB, CK #### [facility] [address] [id number] [facility] Transferrin [Mass/Vol] 193 mg/dL Low 203-362 [facility] Comment on above: Performed By: #### H S TROP, CKMB, CK #### [facility] [address] Leukocytes [#/volume] correc suzi for nucleated erythrocytes in Blood by Automated counOrdered By: Leroy Ashby on 06-28-2024 WBC corrected for nucl RBC Auto (Bld) [#/Vol] Leukocytes [#/volume] corrected for nucleated erythrocytes in Blood by Automated coun 3.8-11.6 [facility] MCH Auto (RBC) [Entitic mass ]Ordered By: Leroy Ashby on 06-28-2024 MCH (RBC) [Entitic mass] MCH [Entitic mass] by Automated count 24.7-34.3 [facility] MCHC Auto (RBC) [Mass/Vol]Or dered By: Leroy Ashby on 06-28-2024 MCHC (RBC) [Mass/Vol] MCHC [Mass/volume] by Automated count 32.0-35.0 [facility] MCV Auto (RBC) [Entitic vol] Ordered By: Leroy Ashby on 06-28-2024 MCV (RBC) [Entitic vol] MCV [Entitic volume] by Automated count 80-100 [facility] Magnesiumon 06-28-2024 Magnesium [Mass/Vol] 1.9 mg/dL Normal 1.9-2.7 [facility] Comment on above: Performed By: #### H S TROP, CKMB, CK #### [facility] [address] Magnesium [Mass/volume] in S pal[place] or PlasmaOrdered By: Leroy Ashby on 06-28-2024 Magnesium [Mass/Vol] Magnesium [Mass/volume] in Serum or Plasma 1.9-2.7 [facility] No Panel InformationOrdered By: Leroy Ashby on 06-28-2024 Estimated GFR (CKD-EPI) 36.998 mL/Min [facility] Creatinine Clearance (Chem N/A [facility] Protein Electrophoresis Interpret Comment . [facility] Comment on above: The SPE pattern demo nstrates elevation of regionscontaining acute phase proteins suggesting anacute/subacute inflammatory response. Some conditions inwhich this pattern has been observed include: bacterial,viral or parasitic infection; mechanical, physical orchemical trauma; and cardiac failure. The gamma globulinregion is unremarkable and evidence of monoclonal proteinis not apparent.Performed at: [facility] [id number] Director: Mohan Talbert PhD, Phone: [phone] Protein Electrophoresis M-Rafiq Not observed g/dL Not Observed [facility] Protein Electrophoresis Note Comment . [facility] Comment on above: Protein electrophore sis scan will follow via computer,mail, or hardware sales assistant delivery. Parathyrin.intact [Mass/volu me] in Serum or PlasmaOrdered By: Leroy Ashby on 06-28-2024 Parathyrin.intact [Mass/Vol] Parathyrin.intact [Mass/volume] in Serum or Plasma [facility] Parathyroid Hormone Intacton 06-28-2024 Parathyroid Hormone Intact 69.9 pg/mL Normal [facility] Comment on above: Result Comment: PERF ORMED BY: [facility] [address] [place] [address] PATHOLOGIST RECREATION ASSISTANT RADHA DURAN M.D. Performed By: #### H S TROP, CKMB, CK #### [facility] [address] [place] [address] [place] Phosphate [Mass/volume] in S paloma or PlasmaOrdered By: Leroy Ashby on 06-28-2024 Phosphate [Mass/Vol] Phosphate [Mass/volume] in Serum or Plasma 2.5-4.5 [facility] Platelet mean volume Auto (B ld) [Entitic vol]Ordered By: Leroy Ashby on 06-28-2024 Platelet mean volume (Bld) [Entitic vol] Platelet mean volume [Entitic volume] in Blood by Automated count 6.3-10.7 [facility] Platelets Auto (Bld) [#/Vol] Ordered By: Leroy Ashby on 06-28-2024 Platelets (Bld) [#/Vol] Platelets [#/volume] in Blood by Automated count 150-450 [facility] Potassium [Moles/volume] in Serum or PlasmaOrdered By: Leroy Ashby on 06-28-2024 Potassium [Moles/Vol] Potassium [Moles/volume] in Serum or Plasma 3.5-5.1 [facility] Prot Electrophoresis w/Inter christine 06-28-2024 Albumin [Mass/Vol] 3.1 g/dL Normal 2.9-4.4 [facility] Comment on above: Performed By: #### H S TROP, CKMB, CK #### [facility] [address] Albumin/Globulin [Mass ratio] 0.8 {ratio} Normal 0.7-1.7 [facility] Comment on above: Performed By: #### H S TROP, CKMB, CK #### [facility] [address] [place] [address] [place] Owhza-8-Fedllyvd 0.3 g/dL Normal 0.0-0.4 [facility] Comment on above: Performed By: #### H S TROP, CKMB, CK #### [facility] [address] [place] [address] [place] Oavrm-4-Yhsqytvc 1.3 g/dL High 0.4-1.0 [facility] Comment on above: Performed By: #### H S TROP, CKMB, CK #### [facility] [address] Beta Globulin 1.1 g/dL Normal 0.7-1.3 [facility] Comment on above: Performed By: #### H S TROP, CKMB, CK #### [facility] [address] Gamma Globulin 1.1 g/dL Normal 0.4-1.8 [facility] Comment on above: Performed By: #### H S TROP, CKMB, CK #### [facility] [address] Globulin (S) [Mass/Vol] 3.7 g/dL Normal 2.2-3.9 [facility] Comment on above: Performed By: #### H S TROP, CKMB, CK #### [address] M-Rafiq Not Observed Normal Not Observed [facility] Comment on above: Performed By: #### H S TROP, CKMB, CK #### [address] Protein [Mass/Vol] 6.8 g/dL Normal 6.0-8.5 [facility] Comment on above: Performed By: #### H S TROP, CKMB, CK #### [address] SPE-Interpretation Comment Normal . [facility] Comment on above: Result Comment: The SPE pattern demonstrates elevation of regions containing acute phase proteins suggesting an acute/subacute inflammatory response. Some conditions in which this pattern has been observed include: bacterial, viral or parasitic infection; mechanical, physical or chemical trauma; and cardiac failure. The gamma globulin region is unremarkable and evidence of monoclonal protein is not apparent. Performed at: [facility] [address] [id number] [place] Turner: Mohan Talbert PhD, Phone: [phone] Performed By: #### H S TROP, CKMB, CK #### [facility] [address] SPE-Note Comment Normal . [facility] Comment on above: Result Comment: Prot ein electrophoresis scan will follow via computer, mail, or hardware sales assistant delivery. Performed By: #### H S TROP, CKMB, CK #### [address] RBC Auto (Bld) [#/Vol]Ordere d By: Leroy Ashby on 06-28-2024 RBC (Bld) [#/Vol] Erythrocytes [#/volume] in Blood by Automated count 3.60-5.00 [facility] Renal Function Panelon 06-28 Albumin [Mass/Vol] 3.6 g/dL Normal 3.5-5.7 [facility] Comment on above: Performed By: #### H S TROP, CKMB, CK #### [address] Anion gap [Moles/Vol] 12.9 mmol/L Normal 6.0-15.0 [facility] Comment on above: Performed By: #### H S TROP, CKMB, CK #### [address] Calcium [Mass/Vol] 9.3 mg/dL Normal 8.6-10.3 [facility] Comment on above: Performed By: #### H S TROP, CKMB, CK #### [address] Chloride [Moles/Vol] 101 mmol/L Normal 98-107 [facility] Comment on above: Performed By: #### H S TROP, CKMB, CK #### [address] CO2 [Moles/Vol] 29.5 mmol/L Normal 21.0-31.0 [facility] Comment on above: Performed By: #### H S TROP, CKMB, CK #### [address] Creatinine [Mass/Vol] 1.44 mg/dL High 0.60-1.20 [facility] Comment on above: Performed By: #### H S TROP CKMB, CK #### [facility] [address] Estimated GFR 36.998 mL/Min Normal [facility] Comment on above: Performed By: #### H S TROP CKMB, CK #### [address] Glucose [Mass/Vol] 151 mg/dL High 70-100 [facility] Comment on above: Result Comment: [facility] Glucose Reference Range is dependent on time and content of last meal. Glucose of more than 200 mg/dL in a nonstressed, ambulatory subject supports the diagnosis of Diabetes Mellitus. ADA recommended reference range Performed By: #### H S TROP CKMB, CK #### [address] Phosphate [Mass/Vol] 3.5 mg/dL Normal 2.5-4.5 [facility] Comment on above: Performed By: #### H S TROP CKMB, CK #### [address] Potassium [Moles/Vol] 4.4 mmol/L Normal 3.5-5.1 [facility] Comment on above: Performed By: #### H S TROP CKMB, CK #### [address] Sodium [Moles/Vol] 139 mmol/L Normal 136-145 [facility] Comment on above: Performed By: #### H S TROP CKMB, CK #### [address] Urea nitrogen [Mass/Vol] 28 mg/dL High 7-25 [facility] Comment on above: Performed By: #### H S TROP CKMB, CK #### [address] Serum free kappa light chain measurementOrdered By: Leroy Ashby on 06-28-2024 Immunoglobulin light chains.kappa.free (S) [Mass/Vol] Immunoglobulin light chains.kappa.free [Mass/volume] in Serum High 3.3-19.4 [facility] Serum globulin measurement ( mass/volume)Ordered By: Leroy Ashby on 06-28-2024 Globulin (S) [Mass/Vol] Serum globulin measurement (mass/volume) 2.2-3.9 [facility] Serum immunofixation electro phoresisOrdered By: Leroy Ashby on 06-28-2024 Serum Immunofixation Comment: . [facility] Comment on above: Presence of monoclon al protein is unclear at this time. Suggestrepeat in 3 to 6 months if clinically indicated. Serum immunoglobulin free ka ppa light chains/immunoglobulin free lambda light chainsOrdered By: Leroy Ashby on 06-28-2024 Immunoglobulin light chains.kappa.free/I mmunoglobulin light chains.lambda.free (S) [Mass ratio] Immunoglobulin light chains.kappa.free/I mmunoglobulin light chains.lambda.free [Mass High 0.26-1.65 [facility] Comment on above: Performed at: [facility] [place] [id number] Director: Mohan Talbert PhD, Phone: [phone] Serum or plasma IgA measurem ent (mass/volume)Ordered By: Leroy Ashby on 06-28-2024 IgA [Mass/Vol] IgA [Mass/volume] in Serum or Plasma 64-422 [facility] Serum or plasma IgG measurem ent (mass/volume)Ordered By: Leroy Ashby on 06-28-2024 IgG [Mass/Vol] IgG [Mass/volume] in Serum or Plasma [id number] [facility] Serum or plasma IgM measurem ent (mass/volume)Ordered By: Leroy Ashby on 06-28-2024 IgM [Mass/Vol] IgM [Mass/volume] in Serum or Plasma 26-217 [facility] Comment on above: Performed at: [facility] [place] [id number] Director: Mohan Talbert PhD, Phone: [phone] Serum or plasma albumin lei urement (mass/volume)Ordered By: Leroy Ashby on 06-28-2024 Albumin [Mass/Vol] Albumin [Mass/volume] in Serum or Plasma 2.9-4.4 [facility] Serum or plasma albumin/glob ulin mass ratioOrdered By: Leroy Ashby on 06-28-2024 Albumin/Globulin [Mass ratio] Serum or plasma albumin/globulin mass ratio 0.7-1.7 [facility] Serum or plasma alpha 1 glob ulin measurement by electrophoresis (mass/volume)Ordered By: Leroy Ashby on 06-28-2024 Alpha 1 globulin Elph [Mass/Vol] Serum or plasma alpha 1 globulin measurement by electrophoresis (mass/volume) 0.0-0.4 [facility] Serum or plasma alpha 2 glob ulin measurement by electrophoresis (mass/volume)Ordered By: Leroy Ashby on 06-28-2024 Alpha 2 globulin Elph [Mass/Vol] Serum or plasma alpha 2 globulin measurement by electrophoresis (mass/volume) High 0.4-1.0 [facility] Serum or plasma anion gap de terminationOrdered By: Leroy Ashby on 06-28-2024 Anion gap [Moles/Vol] Serum or plasma anion gap determination 6.0-15.0 [facility] Serum or plasma beta globuli n measurement by electrophoresis (mass/volume)Ordered By: Leroy Ashby on 06-28-2024 Beta globulin Elph [Mass/Vol] Serum or plasma beta globulin measurement by electrophoresis (mass/volume) 0.7-1.3 [facility] Serum or plasma gamma globul in measurement by electrophoresis (mass/volume)Ordered By: Leroy Ashby on 06-28-2024 Gamma globulin Elph [Mass/Vol] Serum or plasma gamma globulin measurement by electrophoresis (mass/volume) 0.4-1.8 [facility] Serum or plasma immunoglobul in free lambda light chains measurement (mass/volume)Ordered By: Leroy Ashby on 06-28-2024 Immunoglobulin light chains.lambda.free [Mass/Vol] Immunoglobulin light chains.lambda.free [Mass/volume] in Serum or Plasma High 5.7-26.3 [facility] Serum or plasma iron binding capacity measurement (mass/volume)Ordered By: Leroy Ashby on 06-28-2024 Iron binding capacity [Mass/Vol] Iron binding capacity [Mass/volume] in Serum or Plasma 255-450 [facility] Serum or plasma iron saturat ion measurement (mass fraction)Ordered By: Leroy Ashby on 06-28-2024 Iron saturation [Mass fraction] Iron saturation [Mass Fraction] in Serum or Plasma 20-50 [facility] Serum total protein measurem entOrdered By: Leroy Ashby on 06-28-2024 Protein [Mass/Vol] Protein [Mass/volume] in Serum or Plasma 6.0-8.5 [facility] Sodium [Moles/volume] in Ser um or PlasmaOrdered By: Leroy Ashby on 06-28-2024 Sodium [Moles/Vol] Sodium [Moles/volume] in Serum or Plasma 136-145 [facility] Transferrin [Mass/volume] in Serum or PlasmaOrdered By: Leroy Ashby on 06-28-2024 Transferrin [Mass/Vol] Transferrin [Mass/volume] in Serum or Plasma Low 203-362 [facility] Urate [Mass/volume] in Serum or PlasmaOrdered By: Leroy Ashby on 06-28-2024 Urate [Mass/Vol] Urate [Mass/volume] in Serum or Plasma 2.3-6.6 [facility] Urea nitrogen [Mass/volume] in Serum or PlasmaOrdered By: Leroy Ashby on 06-28-2024 Urea nitrogen [Mass/Vol] Urea nitrogen [Mass/volume] in Serum or Plasma High 7-25 [facility] Uric Acidon 06-28-2024 Urate [Mass/Vol] 4.3 mg/dL Normal 2.3-6.6 [facility] Comment on above: Performed By: #### H S TROP, CKMB, CK #### [facility] [address] Vit. B12/Folate Profileon Cobalamin (Vitamin B12) [Mass/Vol] 311 pg/mL Normal 180-914 [facility] Comment on above: Performed By: #### H S TROP, CKMB, CK #### [facility] [address] Folate 20.4 ng/mL Normal >5.9 [facility] Comment on above: Result Comment: Jess te reference range: >5.9 ng/ml The WHO technical consultation on folate and vitamin b12 deficiencies has determined that folate concentrations less than 4 ng/ml are considered deficient. Performed By: #### H S TROP, CKMB, CK #### [address] Vitamin B12 ser/plasOrdered By: Leroy Ashby on 06-28-2024 Cobalamin (Vitamin B12) [Mass/Vol] Vitamin B12 ser/plas 180-914 [facility] Vitamin D 25 Hydroxy Totalon 06-28-2024 Vitamin D 25 Hydroxy Total 59.6 ng/mL Normal 30-100 [facility] Comment on above: Result Comment: ROBERTO MIN D STATUS 25(OH)VITAMIN D RANGE (ng/mL) Deficient <20 Insufficient 20 to <30 Sufficient 30 to 100 Reference: Abhijeet Lao, Stacey CHATMAN, et al. Evaluation,treatment, and prevention of vitamin D deficiency; an Endocrine Society clinical practice guideline. JCEM. 2010; 96(7):191-. PERFORMED BY: [place] [address] PATHOLOGIST RECREATION ASSISTANT RADHA DURAN M.D. Performed By: #### H S TROP, CKMB, CK #### [address] Vitamin D+Metabolites [Mass/ volume] in Serum or PlasmaOrdered By: Leroy Ashby on 06-28-2024 Vitamin D+Metabolites [Mass/Vol] Vitamin D+Metabolites [Mass/volume] in Serum or Plasma 30-100 [facility] Comment on above: VITAMIN D STATUS 25( OH)VITAMIN D RANGE (ng/mL) Deficient <20 Insufficient 20 to <30Sufficient 30 to 100Reference: Abhijeet Lao, Stacey CHATMAN, et al. Evaluation,treatment, and prevention of vitamin D deficiency; an Endocrine Society clinical practice guideline. JCEM. 2010; 96(7):1911-30. XR hip LT min 2V(w/wo pelvis )*on 06-28-2024 XR hip LT min 2V(w/wo pelvis)* [facility] [place] [address] [place] [address] XRay Report Signed Patient: Lexi Tatum MR#: [id number] : 1945 Acct:[id number] Age/Sex: 79 / F ADM Date: 06/28/24 Loc: [place] Room: Type: [facility] Attending Dr: Da Lozano II, MD [...] Iraheta Jr., D.OPaul06/28/2024 3:44 PM Dictation Location: [place] [address] Transcribed By: [facility] 06/28/24 1544 Dictated By: Earnest Iraheta Jr DO 06/28/24 1542 Signed By: 06/28/24 1544 Normal [facility] Albumin Levelon 06-24-2024 Albumin [Mass/Vol] 3.7 g/dL Normal 3.5-5.7 [facility] Comment on above: Result Comment: PERF ORMED BY: [place] [address] PATHOLOGIST RECREATION ASSISTANT RADHA DURAN M.D. Performed By: #### H S TROP, CKMB, CK #### [address] Albumin [Mass/volume] in Ser um or Plasma by Bromocresol green (BCG) dye binding methoOrdered By: Da Lozano on 06-24-2024 Albumin BCG dye [Mass/Vol] Albumin [Mass/volume] in Serum or Plasma by Bromocresol green (BCG) dye binding metho 3.5-5.7 [facility] Appearance of UrineOrdered B y: Da Lozano on 06-24-2024 Appearance (U) Urine appearance Abnormal Clear [facility] Bacteria [Presence] in Urine by AutomatedOrdered By: Da Lozano on 06-24-2024 Bacteria Auto Ql (U) Bacteria [Presence] in Urine by Automated High None Seen [facility] Basic Metabolic Panelon 06-13 Anion gap [Moles/Vol] 14.2 mmol/L Normal 6.0-15.0 [facility] Comment on above: Performed By: #### H S TROP, CKMB, CK #### [facility] [address] [place] [address] [place] Calcium [Mass/Vol] 9.6 mg/dL Normal 8.6-10.3 [facility] Comment on above: Performed By: #### H S TROP, CKMB, CK #### [facility] [address] [place] [address] [place] Chloride [Moles/Vol] 99 mmol/L Normal 98-107 [facility] Comment on above: Performed By: #### H S TROP, CKMB, CK #### [facility] [address] [id number] [place] CO2 [Moles/Vol] 32.5 mmol/L High 21.0-31.0 [facility] Comment on above: Performed By: #### H S TROP, CKMB, CK #### [facility] [address] [id number] [place] Creatinine [Mass/Vol] 1.62 mg/dL High 0.60-1.20 [facility] Comment on above: Performed By: #### H S TROP, CKMB, CK #### [facility] [address] [id number] [place] Estimated GFR 32.121 mL/Min Normal [facility] Comment on above: Performed By: #### H S TROP, CKMB, CK #### [facility] [address] Glucose [Mass/Vol] 77 mg/dL Normal 70-100 [facility] Comment on above: Result Comment: [place] Glucose Reference Range is dependent on time and content of last meal. Glucose of more than 200 mg/dL in a nonstressed, ambulatory subject supports the diagnosis of Diabetes Mellitus. ADA recommended reference range Performed By: #### H S TROP, CKMB, CK #### [facility] [address] Potassium [Moles/Vol] 4.7 mmol/L Normal 3.5-5.1 [facility] Comment on above: Performed By: #### H S TROP, CKMB, CK #### [address] Sodium [Moles/Vol] 141 mmol/L Normal 136-145 [facility] Comment on above: Performed By: #### H S TROP, CKMB, CK #### [address] Urea nitrogen [Mass/Vol] 34 mg/dL High 7-25 [facility] Comment on above: Performed By: #### H S TROP, CKMB, CK #### [place] [address] [place] Basophils Auto (Bld) [#/Vol] Ordered By: Da Lozano on 06-24-2024 Basophils (Bld) [#/Vol] Automated basophil count 0.0-0.2 [facility] Basophils/100 WBC Auto (Bld) Ordered By: Da Lozano on 06-24-2024 Basophils/100 WBC (Bld) Automated basophil % . [facility] Bilirubin Test strip Ql (U)O rdered By: Da Lozano on 06-24-2024 Bilirubin Ql (U) Bilirubin.total [Presence] in Urine by Test strip Negative [facility] Calcium [Mass/volume] in Ser um or PlasmaOrdered By: Da Lozano on 06-24-2024 Calcium [Mass/Vol] Calcium [Mass/volume] in Serum or Plasma 8.6-10.3 [facility] Carbon dioxide, total [Moles /volume] in Serum or PlasmaOrdered By: Da Lozano on 06-24-2024 CO2 [Moles/Vol] Carbon dioxide, total [Moles/volume] in Serum or Plasma High 21.0-31.0 [facility] Chloride [Moles/volume] in S paloma or PlasmaOrdered By: Da Lozano on 06-24-2024 Chloride [Moles/Vol] Chloride [Moles/volume] in Serum or Plasma 98-107 [facility] Color Auto (U)Ordered By: Yuki Lozano on 06-24-2024 Color (U) Color of Urine by Auto Abnormal Yellow [facility] Complete Blood Count Auto Di ffon 06-24-2024 Basophils (Bld) [#/Vol] 0.1 10*3/uL Normal 0.0-0.2 [facility] Comment on above: Result Comment: PERF ORMED BY: [place] [address] PATHOLOGIST RECREATION ASSISTANT RADHA DURAN M.D. Performed By: #### H S TROP, CKMB, CK #### [address] Basophils/100 WBC (Bld) 1.2 % Normal . [facility] Comment on above: Performed By: #### H S TROP, CKMB, CK #### [facility] [address] Eosinophils (Bld) [#/Vol] 0.4 10*3/uL Normal 0.0-0.45 [facility] Comment on above: Performed By: #### H S TROP, CKMB, CK #### [facility] [address] [place] [address] [place] Eosinophils/100 WBC (Bld) 3.9 % Normal . [facility] Comment on above: Performed By: #### H S TROP, CKMB, CK #### [address] Erythrocyte distribution width (RBC) [Ratio] 15.6 % High 11.9-15.3 [facility] Comment on above: Performed By: #### H S TROP, CKMB, CK #### [address] Hematocrit (Bld) [Volume fraction] 36.3 % Normal 34.0-46.4 [facility] Comment on above: Performed By: #### H S TROP, CKMB, CK #### [address] Hemoglobin (Bld) [Mass/Vol] 11.9 g/dL Normal 11.8-15.4 [facility] Comment on above: Performed By: #### H S TROP, CKMB, CK #### [address] Lymphocytes (Bld) [#/Vol] 2.1 10*3/uL Normal 1.00-4.8 [facility] Comment on above: Performed By: #### H S TROP, CKMB, CK #### [address] Lymphocytes/100 WBC (Bld) 19.4 % Normal . [facility] Comment on above: Performed By: #### H S TROP, CKMB, CK #### [address] MCH (RBC) [Entitic mass] 31.9 pg Normal 24.7-34.3 [facility] Comment on above: Performed By: #### H S TROP, CKMB, CK #### [address] MCV (RBC) [Entitic vol] 97.5 fL Normal 80-100 [facility] [facility] Comment on above: Performed By: #### H S TROP, CKMB, CK #### [address] Mean Corpuscular HGB Conc 32.7 g/dL Normal 32.0-35.0 [facility] Comment on above: Performed By: #### H S TROP, CKMB, CK #### [address] [place] [address] [place] Monocytes (Bld) [#/Vol] 0.8 10*3/uL Normal 0.0-0.8 [facility] Comment on above: Performed By: #### H S TROP, CKMB, CK #### [place] [address] [place] Monocytes/100 WBC (Bld) 7.5 % Normal . [facility] Comment on above: Performed By: #### H S TROP, CKMB, CK #### [address] Neutrophils (Bld) [#/Vol] 7.4 10*3/uL Normal 1.8-7.7 [facility] Comment on above: Performed By: #### H S TROP, CKMB, CK #### [address] Neutrophils/100 WBC (Bld) 68.0 % Normal . [facility] Comment on above: Performed By: #### H S TROP, CKMB, CK #### [address] NRBC% 0.0 /100{WBC} Normal 0-0.5 [facility] Comment on above: Performed By: #### H S TROP, CKMB, CK #### [address] Platelet mean volume (Bld) [Entitic vol] 9.0 fL Normal 6.3-10.7 [facility] Comment on above: Performed By: #### H S TROP, CKMB, CK #### [place] [address] [place] Platelets (Bld) [#/Vol] 252 10*3/uL Normal 150-450 [facility] Comment on above: Performed By: #### H S TROP, CKMB, CK #### [place] [address] [place] RBC (Bld) [#/Vol] 3.73 10*6/uL Normal 3.60-5.00 [facility] Comment on above: Performed By: #### H S TROP, CKMB, CK #### [facility] [address] WBC (Bld) [#/Vol] 10.9 10*3/uL Normal 3.8-11.6 [facility] Comment on above: Performed By: #### H S TROP, CKMB, CK #### [address] Creatinine [Mass/volume] in Serum or PlasmaOrdered By: Da Lozano on 06-24-2024 Creatinine [Mass/Vol] Creatinine [Mass/volume] in Serum or Plasma High 0.60-1.20 [facility] Dipstick and Microscopicon 1 08-25-2023 Appearance (U) Turbid Critically abnormal Clear [facility] Comment on above: Order Comment: Name Collection Type:: Clean-Voided Midstream Performed By: #### P T, BMP, PTT, CBC #### [address] Bacteria,Urine 4+ High None Seen [facility] Comment on above: Order Comment: Name Collection Type:: Clean-Voided Midstream Performed By: #### P T, BMP, PTT, CBC #### [address] Bilirubin,Urine Negative Normal Negative [facility] Comment on above: Order Comment: Name Collection Type:: Clean-Voided Midstream Performed By: #### P T, BMP, PTT, CBC #### [address] Color (U) [place] Critically abnormal Yellow [facility] Comment on above: Order Comment: Name Collection Type:: Clean-Voided Midstream Performed By: #### P T, BMP, PTT, CBC #### [address] Glucose Ql (U) Normal Normal Normal [facility] Comment on above: Order Comment: Name Collection Type:: Clean-Voided Midstream Performed By: #### P T, BMP, PTT, CBC #### [place] [address] [place] Hyaline Casts,Urine None Normal 0-8 [facility] Comment on above: Order Comment: Name Collection Type:: Clean-Voided Midstream Performed By: #### P T, BMP, PTT, CBC #### [address] Ketones Ql (U) Negative Normal Negative [facility] Comment on above: Order Comment: Name Collection Type:: Clean-Voided Midstream Performed By: #### P T, BMP, PTT, CBC #### [address] Leukocyte esterase Test strip Ql (U) 4+ High Negative [facility] Comment on above: Order Comment: Name Collection Type:: Clean-Voided Midstream Performed By: #### P T, BMP, PTT, CBC #### [place] [address] [place] Mucus,Urine Rare Normal [facility] Comment on above: Order Comment: Name Collection Type:: Clean-Voided Midstream Result Comment: PERF ORMED BY: [place] [address] PATHOLOGIST RECREATION ASSISTANT RADHA DURAN M.D. Performed By: #### P T, BMP, PTT, CBC #### [place] [address] [place] Nitrite,Urine Negative Normal Negative [facility] Comment on above: Order Comment: Name Collection Type:: Clean-Voided Midstream Performed By: #### P T, BMP, PTT, CBC #### [place] [address] [place] Occult Blood,Urine 1+ High Negative [facility] Comment on above: Order Comment: Name Collection Type:: Clean-Voided Midstream Result Comment: PERF ORMED BY: [place] [address] PATHOLOGIST RECREATION ASSISTANT RADHA DURAN M.D. Performed By: #### P T, BMP, PTT, CBC #### [address] pH (U) 6.5 [pH] Normal 5.0-9.0 [facility] Comment on above: Order Comment: Name Collection Type:: Clean-Voided Midstream Performed By: #### P T, BMP, PTT, CBC #### [address] Protein (U) [Mass/Vol] 70 mg/dL High Negative [facility] Comment on above: Order Comment: Name Collection Type:: Clean-Voided Midstream Performed By: #### P T, BMP, PTT, CBC #### [address] RBC,Urine 20 [HPF] High 0-4 [facility] Comment on above: Order Comment: Name Collection Type:: Clean-Voided Midstream Performed By: #### P T, BMP, PTT, CBC #### [address] Specificy [place],Urine 1.010 Normal 1.001-1.030 [facility] Comment on above: Order Comment: Name Collection Type:: Clean-Voided Midstream Performed By: #### P T, BMP, PTT, CBC #### [address] Squamous Epithelial Cell,Urine 20 [HPF] High 0-2 [facility] Comment on above: Order Comment: Name Collection Type:: Clean-Voided Midstream Performed By: #### P T, BMP, PTT, CBC #### [address] Urobilinogen,Urine Normal Normal Normal [facility] Comment on above: Order Comment: Name Collection Type:: Clean-Voided Midstream Performed By: #### P T, BMP, PTT, CBC #### [address] WBC [place], Urine Many High None Seen [facility] Comment on above: Order Comment: Name Collection Type:: Clean-Voided Midstream Performed By: #### P T, BMP, PTT, CBC #### [facility] [address] WBC,Urine Innumerable High 0-4 [facility] Comment on above: Order Comment: Name Collection Type:: Clean-Voided Midstream Performed By: #### P T, BMP, PTT, CBC #### [facility] [address] Eosinophils Auto (Bld) [#/Vo l]Ordered By: Da Lozano on 06-24-2024 Eosinophils (Bld) [#/Vol] Automated eosinophil count 0.0-0.45 [facility] Eosinophils/100 WBC Auto (Bl d)Ordered By: Da Lozano on 06-24-2024 Eosinophils/100 WBC (Bld) Automated eosinophil % . [facility] Epithelial cells.squamous [# /area] in Urine sediment by Automated countOrdered By: Da Lozano on 06-24-2024 Epithelial cells.squamous Auto (Urine sed) [#/Area] Epithelial cells.squamous [#/area] in Urine sediment by Automated count High 0-2 [facility] Erythrocyte distribution wid th Auto (RBC) [Ratio]Ordered By: Da Lozano on 06-24-2024 Erythrocyte distribution width (RBC) [Ratio] Erythrocyte distribution width [Ratio] by Automated count High 11.9-15.3 [facility] Erythrocytes [#/area] in Uri ne sediment by Automated countOrdered By: Da Lozano on 06-24-2024 RBC Auto (Urine sed) [#/Area] Erythrocytes [#/area] in Urine sediment by Automated count High 0-4 [facility] Fructosamineon 06-24-2024 Fructosamine 308 umol/L High 0-285 [facility] Comment on above: Result Comment: Publ ished reference interval for apparently healthy subjects between age 20 and 60 is 205 - 285 umol/L and in a poorly controlled diabetic population is 228 - 563 umol/L with a mean of 396 umol/L. Performed at: - [facility] [id number] [place] Turner: Mohan Talbert PhD, Phone: [phone] PERFORMED BY: [place] [id number] PATHOLOGIST RECREATION ASSISTANT RADHA DURAN M.D. Performed By: #### G DALLIN #### Point of Care testing , Fructosamine [Moles/volume] in Serum or PlasmaOrdered By: Da Lozano on 06-24-2024 Fructosamine [Moles/Vol] Fructosamine [Moles/volume] in Serum or Plasma High 0-285 [facility] Comment on above: Published reference interval for apparently healthysubjects between age 20 and 60 is 205 - 285 umol/L and in apoorly controlled diabetic population is 228 - 563 umol/Lwith a mean of 396 umol/L.Performed at: [facility] [id number] Director: Mohan Talbert PhD, Phone: [phone] Glucose [Mass/volume] in Ser um or PlasmaOrdered By: Da Lozano on 06-24-2024 Glucose [Mass/Vol] Glucose [Mass/volume] in Serum or Plasma 70-100 [facility] Comment on above: ADA recommended refe rence rangeRandom Glucose Reference Range is dependent on time and content of last meal. Glucose of more than 200 mg/dL in a nonstressed, ambulatory subject supports the diagnosis of Diabetes Mellitus. Glucose [Mass/volume] in Uri ne by Test stripOrdered By: Da Lozano on 06-24-2024 Glucose Test strip (U) [Mass/Vol] Glucose [Mass/volume] in Urine by Test strip Normal [facility] Hematocrit Auto (Bld) [Volum e fraction]Ordered By: Da Lozano on 06-24-2024 Hematocrit (Bld) [Volume fraction] Hematocrit [Volume Fraction] of Blood by Automated count 34.0-46.4 [facility] Hemoglobin Test strip Ql (U) Ordered By: Da Lozano on 06-24-2024 Hemoglobin Ql (U) Hemoglobin [Presence] in Urine by Test strip High Negative [facility] Hemoglobin [Mass/volume] in BloodOrdered By: Da Lozano on 06-24-2024 Hemoglobin (Bld) [Mass/Vol] Hemoglobin [Mass/volume] in Blood 11.8-15.4 [facility] Hyaline casts [#/area] in Ur ine sediment by Automated countOrdered By: Da Lozano on 06-24-2024 Hyaline casts Auto (Urine sed) [#/Area] Hyaline casts [#/area] in Urine sediment by Automated count 0-8 [facility] Ketones Test strip Ql (U)Ord ered By: Da Lozano on 06-24-2024 Ketones Ql (U) Ketones [Presence] in Urine by Test strip Negative [facility] Leukocyte clumps [Presence] in Urine by AutomatedOrdered By: Da Lozano on 06-24-2024 Leukocyte clumps Auto Ql (U) Leukocyte clumps [Presence] in Urine by Automated High None Seen [facility] Leukocyte esterase [Presence ] in Urine by Test stripOrdered By: Da Lozano on 06-24-2024 Leukocyte esterase Test strip Ql (U) Leukocyte esterase [Presence] in Urine by Test strip High Negative [facility] Leukocytes [#/area] in Urine sediment by Automated countOrdered By: Da Lozano on 06-24-2024 WBC Auto (Urine sed) [#/Area] Leukocytes [#/area] in Urine sediment by Automated count High 0-4 [facility] Leukocytes [#/volume] correc suzi for nucleated erythrocytes in Blood by Automated counOrdered By: Da Lozano on 06-24-2024 WBC corrected for nucl RBC Auto (Bld) [#/Vol] Leukocytes [#/volume] corrected for nucleated erythrocytes in Blood by Automated coun 3.8-11.6 [facility] Lymphocytes Auto (Bld) [#/Vo l]Ordered By: Da Lozano on 06-24-2024 Lymphocytes (Bld) [#/Vol] Lymphocytes [#/volume] in Blood by Automated count 1.00-4.8 [facility] Lymphocytes/100 WBC Auto (Bl d)Ordered By: Da Lozano on 06-24-2024 Lymphocytes/100 WBC (Bld) Lymphocytes/100 leukocytes in Blood by Automated count . [facility] MCH Auto (RBC) [Entitic mass ]Ordered By: Da Lozano on 06-24-2024 MCH (RBC) [Entitic mass] MCH [Entitic mass] by Automated count 24.7-34.3 [facility] MCHC Auto (RBC) [Mass/Vol]Or dered By: Da Lozano on 06-24-2024 MCHC (RBC) [Mass/Vol] MCHC [Mass/volume] by Automated count 32.0-35.0 [facility] MCV Auto (RBC) [Entitic vol] Ordered By: Da Lozano on 06-24-2024 MCV (RBC) [Entitic vol] MCV [Entitic volume] by Automated count 80-100 [facility] Monocytes Auto (Bld) [#/Vol] Ordered By: Da Lozano on 06-24-2024 Monocytes (Bld) [#/Vol] Automated blood monocyte count 0.0-0.8 [facility] Monocytes/100 WBC Auto (Bld) Ordered By: Da Lozano on 06-24-2024 Monocytes/100 WBC (Bld) Automated monocyte % . [facility] Mucus [Presence] in Urine by AutomatedOrdered By: Da Lozano on 06-24-2024 Mucus Auto Ql (U) Mucus [Presence] in Urine by Automated [facility] Neutrophils Auto (Bld) [#/Vo l]Ordered By: Da Lozano on 06-24-2024 Neutrophils (Bld) [#/Vol] Neutrophils [#/volume] in Blood by Automated count 1.8-7.7 [facility] Neutrophils/100 WBC Auto (Bl d)Ordered By: Da Loznao on 06-24-2024 Neutrophils/100 WBC (Bld) Automated neutrophil % . [facility] Nitrite Test strip Ql (U)Ord ered By: Da Lozano on 06-24-2024 Nitrite Ql (U) Nitrite [Presence] in Urine by Test strip Negative [facility] No Panel InformationOrdered By: Da Lozano on 06-24-2024 Estimated GFR (CKD-EPI) 32.121 mL/Min [facility] Creatinine Clearance (Chem N/A [facility] Nucleated erythrocytes [Pres ence] in Blood by Automated countOrdered By: Da Lozano on 06-24-2024 Nucleated RBC Auto Ql (Bld) Nucleated erythrocytes [Presence] in Blood by Automated count 0-0.5 [facility] PST Type and Screenon 2023 ABO and Rh group Nom (Bld) Blood group A Rh(D) positive Normal [facility] Comment on above: Order Comment: Date of Surgery: [id number] Result Comment: PERF ORMED BY: [facility] [place] [id number] PATHOLOGIST RECREATION ASSISTANT RADHA DURAN M.D. Platelet mean volume Auto (B ld) [Entitic vol]Ordered By: Da Lozano on 06-24-2024 Platelet mean volume (Bld) [Entitic vol] Platelet mean volume [Entitic volume] in Blood by Automated count 6.3-10.7 [facility] Platelets Auto (Bld) [#/Vol] Ordered By: Da Lozano on 06-24-2024 Platelets (Bld) [#/Vol] Platelets [#/volume] in Blood by Automated count 150-450 [facility] Potassium [Moles/volume] in Serum or PlasmaOrdered By: Da Lozano on 06-24-2024 Potassium [Moles/Vol] Potassium [Moles/volume] in Serum or Plasma 3.5-5.1 [facility] Protein Test strip (U) [Mass /Vol]Ordered By: Da Lozano on 06-24-2024 Protein (U) [Mass/Vol] Protein [Mass/volume] in Urine by Test strip High Negative [facility] RBC Auto (Bld) [#/Vol]Ordere d By: Da Lozano on 06-24-2024 RBC (Bld) [#/Vol] Erythrocytes [#/volume] in Blood by Automated count 3.60-5.00 [facility] Serum or plasma anion gap de terminationOrdered By: Da Lozano on 06-24-2024 Anion gap [Moles/Vol] Serum or plasma anion gap determination 6.0-15.0 [facility] Sodium [Moles/volume] in Ser um or PlasmaOrdered By: Da Lozano on 06-24-2024 Sodium [Moles/Vol] Sodium [Moles/volume] in Serum or Plasma 136-145 [facility] Specific gravity Test strip (U) [Rel density]Ordered By: Da Lozano on 06-24-2024 Specific gravity (U) [Rel density] Specific gravity of Urine by Test strip 1.001-1.030 [facility] Urea nitrogen [Mass/volume] in Serum or PlasmaOrdered By: Da Lozano on 06-24-2024 Urea nitrogen [Mass/Vol] Urea nitrogen [Mass/volume] in Serum or Plasma High 7-25 [facility] Urine Cultureon 06-24-2024 Bacteria identified Cx Nom (U) >100,000 colonies/ml mixed bacterial skin contaminants 2 Days PERFORMED BY: [place] [address] PATHOLOGIST RECREATION ASSISTANT RADHA DURAN M.D. Normal [facility] Comment on above: Performed By: #### P T, BMP, PTT, CBC #### [address] Urine cultureOrdered By: Landon Lozano on 06-24-2024 Bacteria identified Cx Nom (U) Urine culture [facility] Urobilinogen Test strip (U) [Mass/Vol]Ordered By: Da Lozano on 06-24-2024 Urobilinogen (U) [Mass/Vol] Urobilinogen [Mass/volume] in Urine by Test strip Normal [facility] WBC Auto (Bld) [#/Vol]Ordere d By: Da Lozano on 06-24-2024 WBC (Bld) [#/Vol] Leukocytes [#/volume] in Blood by Automated count 3.8-11.6 [facility] pH Test strip (U)Ordered By: Da Lozano on 06-24-2024 pH (U) pH of Urine by Test strip 5.0-9.0 [facility] Glucose Glucometer (BldC) [M ass/Vol]Ordered By: Yaniv Natarajan on 2024 Glucose [Mass/Vol] Capillary blood glucose measurement by glucometer (mass/volume) [facility] Comment on above: Random Glucose Refer ence Range is dependent on time and content of last meal. Glucose of more than 200 mg/dL in a nonstressed, ambulatory subject supports the diagnosis of Diabetes Mellitus. Glucose Poct Glucometerson 1 08-04-2023 Glucose [Mass/Vol] 247 mg/dL Normal [facility] Comment on above: Result Comment: [facility] Glucose Reference Range is dependent on time and content of last meal. Glucose of more than 200 mg/dL in a nonstressed, ambulatory subject supports the diagnosis of Diabetes Mellitus. PERFORMED BY: [place] [address] PATHOLOGIST RECREATION ASSISTANT RADHA DURAN M.D. Performed By: #### G LULS #### Point of Care testing , Commemt1 Glu2: Cleaned Meter Normal [facility] Comment on above: Performed By: #### G LULS #### Point of Care testing , Commemt2 WILL NOTIFY /LIANE [place] [facility] Comment on above: Result Comment: PERF ORMED BY: [address] [address] PATHOLOGIST RECREATION ASSISTANT RADHA DURAN M.D. Performed By: #### G LULS #### Point of Care testing , Glucose [Mass/Vol] 174 mg/dL Normal [facility] Comment on above: Result Comment: [facility] Glucose Reference Range is dependent on time and content of last meal. Glucose of more than 200 mg/dL in a nonstressed, ambulatory subject supports the diagnosis of Diabetes Mellitus. Performed By: #### G LULS #### Point of Care testing , No Panel InformationOrdered By: Yaniv Natarajan on 2024 Bedside Glucose #2 Comment Will notify /liane [facility] Bedside Glucose Comment Glu2: cleaned meter [facility] XR KUBon 2024 XR KUB [facility] Main [address] [address] XRay Report Signed Patient: Lexi Tatum MR#: [id number] : 1945 Acct:[id number] Age/Sex: 79 / F ADM Date: 06/04/24 Loc: [place] Room: Type: [facility] Attending Dr: Yaniv Natarajan MD Copies to: [...] Zayra Juarez M.D.06/04/2024 9:56 AM Dictation Location: [facility]- Transcribed By: [facility] 06/04/24955 Dictated By: Zayra Juarez MD 06/04/24954 Signed By: 06/04/24955 Normal [facility] Laboratory - Chemistry and C hemistry - challengeon 05-25-2024 Bilirubin Ql (U) Negative [facility] Glucose (U) [Mass/Vol] Negative [facility] Ketones Ql (U) Negative [facility] pH (U) 5 [pH] [facility] Specific gravity (U) [Rel density] 1.005 [facility] Urobilinogen (U) [Mass/Vol] 0.2 mg/dL [facility] Laboratory - Specimen inform ationon 05-25-2024 Appearance (U) cloudy [facility] Color (U) lightyellow [facility] Laboratory - Urinalysison Leukocyte esterase Test strip Ql (U) +++ [facility] Nitrite Ql (U) Negative [facility] Protein Ql (U) Negative [facility] No Panel Informationon 05-25 Urine Occult Blood Negative [facility] Urine Cultureon 05-25-2024 Bacteria identified Cx Nom (U) No Growth 2 Days PERFORMED BY: [facility] [address] [place] [address] PATHOLOGIST RECREATION ASSISTANT RADHA DURAN M.D. Normal [facility] Comment on above: Performed By: #### P T, BMP, PTT, CBC #### [facility] [address] Urine cultureOrdered By: Sulema Best on 05-25-2024 Bacteria identified Cx Nom (U) Urine culture [facility] Basic Metabolic Panelon 11-0 Anion gap [Moles/Vol] 11.4 mmol/L Normal 6.0-15.0 [facility] Comment on above: Performed By: #### P T, BMP, PTT, CBC #### [place] [address] [place] Calcium [Mass/Vol] 10.1 mg/dL Normal 8.6-10.3 [facility] Comment on above: Result Comment: PERF ORMED BY: [place] [address] PATHOLOGIST RECREATION ASSISTANT CORAL BECKETT M.D. Performed By: #### P T, BMP, PTT, CBC #### [address] Chloride [Moles/Vol] 98 mmol/L Normal 98-107 [facility] Comment on above: Performed By: #### P T, BMP, PTT, CBC #### [place] [address] [place] CO2 [Moles/Vol] 30.4 mmol/L Normal 21.0-31.0 [facility] Comment on above: Performed By: #### P T, BMP, PTT, CBC #### [address] Creatinine [Mass/Vol] 1.77 mg/dL High 0.60-1.20 [facility] Comment on above: Performed By: #### P T, BMP, PTT, CBC #### [place] [address] [place] GFR/1.73 sq M.predicted MDRD (S/P/Bld) [Vol rate/Area] 29.063 mL/min/{1.73_m2} Normal [facility] Comment on above: Performed By: #### P T, BMP, PTT, CBC #### [place] [address] [place] Glucose [Mass/Vol] 252 mg/dL High 70-100 [facility] Comment on above: Result Comment: [place] Glucose Reference Range is dependent on time and content of last meal. Glucose of more than 200 mg/dL in a nonstressed, ambulatory subject supports the diagnosis of Diabetes Mellitus. ADA recommended reference range Performed By: #### P T, BMP, PTT, CBC #### [facility] [address] Potassium [Moles/Vol] 4.8 mmol/L Normal 3.5-5.1 [facility] Comment on above: Performed By: #### P T, BMP, PTT, CBC #### [facility] [address] Sodium [Moles/Vol] 135 mmol/L Low 136-145 [facility] Comment on above: Performed By: #### P T, BMP, PTT, CBC #### [facility] [address] Urea nitrogen [Mass/Vol] 45 mg/dL High 7-25 [facility] Comment on above: Performed By: #### P T, BMP, PTT, CBC #### [facility] [address] [place] [address] [place] Basophils Auto (Bld) [#/Vol] Ordered By: Yaniv Natarajan on 05-21-2024 Basophils (Bld) [#/Vol] Automated basophil count 0.0-0.2 [facility] Basophils/100 WBC Auto (Bld) Ordered By: Yaniv Natarajan on 05-21-2024 Basophils/100 WBC (Bld) Automated basophil % . [facility] Calcium [Mass/volume] in Ser um or PlasmaOrdered By: Yaniv Natarajan on 05-21-2024 Calcium [Mass/Vol] Calcium [Mass/volume] in Serum or Plasma 8.6-10.3 [facility] Carbon dioxide, total [Moles /volume] in Serum or PlasmaOrdered By: Yaniv Natarajan on 05-21-2024 CO2 [Moles/Vol] Carbon dioxide, total [Moles/volume] in Serum or Plasma 21.0-31.0 [facility] Chloride [Moles/volume] in [place] or PlasmaOrdered By: Yaniv Natarajan on 05-21-2024 Chloride [Moles/Vol] Chloride [Moles/volume] in Serum or Plasma 98-107 [facility] Complete Blood Count Auto Di ffon 05-21-2024 Basophils (Bld) [#/Vol] 0.1 10*3/uL Normal 0.0-0.2 [facility] Comment on above: Result Comment: PERF ORMED BY: [place] [address] PATHOLOGIST RECREATION ASSISTANT CORAL BECKETT M.D. Performed By: #### P T, BMP, PTT, CBC #### [address] Basophils/100 WBC (Bld) 0.8 % Normal . [facility] Comment on above: Performed By: #### P T, BMP, PTT, CBC #### [address] Eosinophils (Bld) [#/Vol] 0.3 10*3/uL Normal 0.0-0.45 [facility] Comment on above: Performed By: #### P T, BMP, PTT, CBC #### [address] Eosinophils/100 WBC (Bld) 2.4 % Normal . [facility] Comment on above: Performed By: #### P T, BMP, PTT, CBC #### [address] Erythrocyte distribution width (RBC) [Ratio] 16.1 % High 11.9-15.3 [facility] Comment on above: Performed By: #### P T, BMP, PTT, CBC #### [address] Hematocrit (Bld) [Volume fraction] 36.6 % Normal 34.0-46.4 [facility] Comment on above: Performed By: #### P T, BMP, PTT, CBC #### [address] Hemoglobin (Bld) [Mass/Vol] 12.0 g/dL Normal 11.8-15.4 [facility] Comment on above: Performed By: #### P T, BMP, PTT, CBC #### [address] Lymphocytes (Bld) [#/Vol] 1.8 10*3/uL Normal 1.00-4.8 [facility] Comment on above: Performed By: #### P T, BMP, PTT, CBC #### [address] Lymphocytes/100 WBC (Bld) 14.2 % Normal . [facility] Comment on above: Performed By: #### P T, BMP, PTT, CBC #### [address] MCH (RBC) [Entitic mass] 32.1 pg Normal 24.7-34.3 [facility] Comment on above: Performed By: #### P T, BMP, PTT, CBC #### [address] MCV (RBC) [Entitic vol] 98.0 fL Normal 80-100 [facility] Comment on above: Performed By: #### P T, BMP, PTT, CBC #### [address] Mean Corpuscular HGB Conc 32.7 g/dL Normal 32.0-35.0 [facility] Comment on above: Performed By: #### P T, BMP, PTT, CBC #### [address] Monocytes (Bld) [#/Vol] 0.8 10*3/uL Normal 0.0-0.8 [facility] Comment on above: Performed By: #### P T, BMP, PTT, CBC #### [address] Monocytes/100 WBC (Bld) 6.4 % Normal . [facility] Comment on above: Performed By: #### P T, BMP, PTT, CBC #### [address] Neutrophils (Bld) [#/Vol] 9.7 10*3/uL High 1.8-7.7 [facility] Comment on above: Performed By: #### P T, BMP, PTT, CBC #### [address] Neutrophils/100 WBC (Bld) 76.2 % Normal . [facility] Comment on above: Performed By: #### P T, BMP, PTT, CBC #### [address] NRBC% 0.1 /100{WBC} Normal 0-0.5 [facility] Comment on above: Performed By: #### P T, BMP, PTT, CBC #### [address] Platelet mean volume (Bld) [Entitic vol] 9.3 fL Normal 6.3-10.7 [facility] Comment on above: Performed By: #### P T, BMP, PTT, CBC #### [address] Platelets (Bld) [#/Vol] 216 10*3/uL Normal 150-450 [facility] Comment on above: Performed By: #### P T, BMP, PTT, CBC #### [address] RBC (Bld) [#/Vol] 3.73 10*6/uL Normal 3.60-5.00 [facility] Comment on above: Performed By: #### P T, BMP, PTT, CBC #### [address] WBC (Bld) [#/Vol] 12.8 10*3/uL High 3.8-11.6 [facility] Comment on above: Performed By: #### P T, BMP, PTT, CBC #### [address] Creatinine [Mass/volume] in Serum or PlasmaOrdered By: Yaniv Natarajan on 05-21-2024 Creatinine [Mass/Vol] Creatinine [Mass/volume] in Serum or Plasma High 0.60-1.20 [facility] Eosinophils Auto (Bld) [#/Vo l]Ordered By: Yaniv Natarajan on 05-21-2024 Eosinophils (Bld) [#/Vol] Automated eosinophil count 0.0-0.45 [facility] Eosinophils/100 WBC Auto (Bl d)Ordered By: Yaniv Natarajan on 05-21-2024 Eosinophils/100 WBC (Bld) Automated eosinophil % . [facility] Erythrocyte distribution wid th Auto (RBC) [Ratio]Ordered By: Yaniv Natarajan on 05-21-2024 Erythrocyte distribution width (RBC) [Ratio] Erythrocyte distribution width [Ratio] by Automated count High 11.9-15.3 [facility] Glucose [Mass/volume] in Ser um or PlasmaOrdered By: Yaniv Natarajan on 05-21-2024 Glucose [Mass/Vol] Glucose [Mass/volume] in Serum or Plasma High 70-100 [facility] Comment on above: ADA recommended refe rence rangeRandom Glucose Reference Range is dependent on time and content of last meal. Glucose of more than 200 mg/dL in a nonstressed, ambulatory subject supports the diagnosis of Diabetes Mellitus. Hematocrit Auto (Bld) [Volum e fraction]Ordered By: Yaniv Natarajan on 05-21-2024 Hematocrit (Bld) [Volume fraction] Hematocrit [Volume Fraction] of Blood by Automated count 34.0-46.4 [facility] Hemoglobin [Mass/volume] in BloodOrdered By: Yaniv Natarajan on 05-21-2024 Hemoglobin (Bld) [Mass/Vol] Hemoglobin [Mass/volume] in Blood 11.8-15.4 [facility] INR in Platelet poor plasma by Coagulation assayOrdered By: Yaniv Natarajan on 05-21-2024 INR Coag (PPP) [Relative time] INR in Platelet poor plasma by Coagulation assay [facility] Comment on above: INR Therapeutic Rang e [...] in Blood by Automated coun High 3.8-11.6 [facility] Lymphocytes Auto (Bld) [#/Vo l]Ordered By: Yaniv Natarajan on 05-21-2024 Lymphocytes (Bld) [#/Vol] Lymphocytes [#/volume] in Blood by Automated count 1.00-4.8 [facility] Lymphocytes/100 WBC Auto (Bl d)Ordered By: Yaniv Natarajan on 05-21-2024 Lymphocytes/100 WBC (Bld) Lymphocytes/100 leukocytes in Blood by Automated count . [facility] MCH Auto (RBC) [Entitic mass ]Ordered By: Yaniv Natarajan on 05-21-2024 MCH (RBC) [Entitic mass] MCH [Entitic mass] by Automated count 24.7-34.3 [facility] MCHC Auto (RBC) [Mass/Vol]Or dered By: Yaniv Natarajan on 05-21-2024 MCHC (RBC) [Mass/Vol] MCHC [Mass/volume] by Automated count 32.0-35.0 [facility] MCV Auto (RBC) [Entitic vol] Ordered By: Yaniv Natarajan on 05-21-2024 MCV (RBC) [Entitic vol] MCV [Entitic volume] by Automated count 80-100 [facility] Monocytes Auto (Bld) [#/Vol] Ordered By: Yaniv Natarajan on 05-21-2024 Monocytes (Bld) [#/Vol] Automated blood monocyte count 0.0-0.8 [facility] Monocytes/100 WBC Auto (Bld) Ordered By: Yaniv Natarajan on 05-21-2024 Monocytes/100 WBC (Bld) Automated monocyte % . [facility] Neutrophils Auto (Bld) [#/Vo l]Ordered By: Yaniv Natarajan on 05-21-2024 Neutrophils (Bld) [#/Vol] Neutrophils [#/volume] in Blood by Automated count High 1.8-7.7 [facility] Neutrophils/100 WBC Auto (Bl d)Ordered By: Yaniv Natarajan on 05-21-2024 Neutrophils/100 WBC (Bld) Automated neutrophil % . [facility] No Panel InformationOrdered By: Yaniv Natarajan on 05-21-2024 Estimated GFR (CKD-EPI) 29.063 mL/Min [facility] Creatinine Clearance (Chem N/A [facility] Nucleated erythrocytes [Pres ence] in Blood by Automated countOrdered By: Yaniv Natarajan on 05-21-2024 Nucleated RBC Auto Ql (Bld) Nucleated erythrocytes [Presence] in Blood by Automated count 0-0.5 [facility] Partial Thromboplastin Timeo n 05-21-2024 aPTT Coag (Bld) [Time] 29.9 s Normal 25.1-36.5 [facility] Comment on above: Result Comment: A he matocrit value greater than 55% may lead to inaccurate results in coagulation testing. Patients having hematocrit values >55% require a special collection tube for coagulation studies. Please contact the laboratory at [phone] for redraw instructions. PERFORMED BY: [place] [address] PATHOLOGIST RECREATION ASSISTANT CORAL BECKETT M.D. Performed By: #### P T, BMP, PTT, CBC #### [address] Platelet mean volume Auto (B ld) [Entitic vol]Ordered By: Yaniv Natarajan on 05-21-2024 Platelet mean volume (Bld) [Entitic vol] Platelet mean volume [Entitic volume] in Blood by Automated count 6.3-10.7 [facility] Platelets Auto (Bld) [#/Vol] Ordered By: Yaniv Natarajan on 05-21-2024 Platelets (Bld) [#/Vol] Platelets [#/volume] in Blood by Automated count 150-450 [facility] Potassium [Moles/volume] in Serum or PlasmaOrdered By: Yaniv Natarajan on 05-21-2024 Potassium [Moles/Vol] Potassium [Moles/volume] in Serum or Plasma 3.5-5.1 [facility] Prothrombin Time INRon 05-21 INR Coag (PPP) [Relative time] 1.0 {INR} Normal [facility] Comment on above: Result Comment: [...] #### P T, BMP, PTT, CBC #### [facility] [address] PT Coag (PPP) [Time] 11.1 s Normal 9.0-12.9 [facility] Comment on above: Result Comment: A he matocrit value greater than 55% may lead to inaccurate results in coagulation testing. Patients having hematocrit values >55% require a special collection tube for coagulation studies. Please contact the laboratory at [phone] for redraw instructions. Performed By: #### P T, BMP, PTT, CBC #### [facility] [address] [place] [id number] [facility] Prothrombin time (PT)Ordered By: Yaniv Natarajan on 05-21-2024 PT Coag (PPP) [Time] Prothrombin time (PT) 9.0-12.9 [facility] Comment on above: A hematocrit value g reater than 55% may lead to inaccurate results in coagulation testing. Patients having hematocrit values >55% require a special collection tube for coagulation studies. Please contact the laboratory at [phone] for redraw instructions. RBC Auto (Bld) [#/Vol]Ordere d By: Yaniv Natarajan on 05-21-2024 RBC (Bld) [#/Vol] Erythrocytes [#/volume] in Blood by Automated count 3.60-5.00 [facility] Serum or plasma anion gap de terminationOrdered By: Yaniv Natarajan on 05-21-2024 Anion gap [Moles/Vol] Serum or plasma anion gap determination 6.0-15.0 [facility] Sodium [Moles/volume] in Ser um or PlasmaOrdered By: Yaniv Natarajan on 05-21-2024 Sodium [Moles/Vol] Sodium [Moles/volume] in Serum or Plasma Low 136-145 [facility] Urea nitrogen [Mass/volume] in Serum or PlasmaOrdered By: Yaniv Natarajan on 05-21-2024 Urea nitrogen [Mass/Vol] Urea nitrogen [Mass/volume] in Serum or Plasma High 7-25 [facility] WBC Auto (Bld) [#/Vol]Ordere d By: Yaniv Natarajan on 05-21-2024 WBC (Bld) [#/Vol] Leukocytes [#/volume] in Blood by Automated count High 3.8-11.6 [facility] aPTT in Platelet poor plasma by Coagulation assayOrdered By: Yaniv Natarajan on 05-21-2024 aPTT Coag (PPP) [Time] Activated partial thromboplastin time (aPTT) in platelet poor plasma by coagulation a 25.1-36.5 [facility] Comment on above: A hematocrit value g reater than 55% may lead to inaccurate results in coagulation testing. Patients having hematocrit values >55% require a special collection tube for coagulation studies. Please contact the laboratory at [phone] for redraw instructions. Laboratory - Chemistry and C hemistry - challengeon 04-07-2024 Bilirubin Ql (U) Negative [facility] Glucose (U) [Mass/Vol] Negative [facility] Ketones Ql (U) Negative [facility] pH (U) 7.0 [pH] [facility] Specific gravity (U) [Rel density] 1.010 [facility] Urobilinogen (U) [Mass/Vol] 0.2 mg/dL [facility] Laboratory - Specimen inform ationon 04-07-2024 Appearance (U) cloudy [facility] Color (U) yellow [facility] Laboratory - Urinalysison Leukocyte esterase Test strip Ql (U) large [facility] Nitrite Ql (U) Positive [facility] Protein Ql (U) 30 [facility] No Panel Informationon 04-07 Urine Occult Blood small [facility] Urine Cultureon 04-07-2024 Bacteria identified Cx Nom (U) 75,000 colonies/ml mixed bacterial skin contaminants 2 Days PERFORMED BY: [facility] [address] [place] [address] PATHOLOGIST RECREATION ASSISTANT CORAL BECKETT M.D. Normal [facility] Comment on above: Performed By: #### C UU #### [facility] [address] Urine cultureOrdered By: Sulema Best on 04-07-2024 Bacteria identified Cx Nom (U) Urine culture [facility] Immunofixation for Urineon 0 03-19-2024 Interpretation Immunofixation (U) [Interp] Comment . [facility] Comment on above: No monoclonality det ected.Performed at: [employer] [id number] Director: Mohan Talbert PhD, Phone: [phone] Interpretation Immunofixation (U) [Interp] Immunofixation for Urine . [facility] Comment on above: No monoclonality det ected.Performed at: [email or web address] [address] [id number] Director: Mohan Talbert PhD, Phone: [phone] Laboratory - Chemistry and C hemistry - challengeon 03-19-2024 Bilirubin Ql (U) Negative NEGATIVE [facility] Glucose (U) [Mass/Vol] Negative NEGATIVE [facility] Ketones Ql (U) Negative NEGATIVE [facility] pH (U) 6.0 [pH] 5.0-9.0 [facility] Specific gravity (U) [Rel density] 1.010 1.005-1.025 [facility] Urobilinogen Qn (U) 0.2 {Joe'U}/dL 0.2-1.0 [facility] Laboratory - Specimen inform ationon 03-19-2024 Appearance (U) SL CLOUDY CLEAR [facility] Color (U) YELLOW YELLOW [facility] Laboratory - Urinalysison Leukocyte esterase Test strip Ql (U) LARGE Abnormal NEGATIVE [facility] Mucus Ql (Urine sed) NONE SEEN NONE SEEN [facility] Nitrite Ql (U) Positive Abnormal NEGATIVE [facility] Protein (U) [Mass/Vol] 77.9 mg/dL High <=11.9 [facility] Protein Ql (U) 100 mg/dL Abnormal NEG/TRACE [facility] No Panel Informationon 03-19 Urine Bacteria MODERATE #/HPF Abnormal NONE SEEN [facility] Urine Occult Blood SMALL Abnormal NEGATIVE [facility] Urine Other Casts NONE SEEN #/LPF NONE SEEN [facility] Urine Other Crystals None Seen #/HPF None Seen [facility] Urine Random Creatinine 25.17 mg/dL 20.00-300.00 [facility] Urine RBC 2-5 #/HPF Abnormal 0-2 [facility] Urine Squamous Epithelial Cells FEW #/LPF Abnormal NONE/RARE [facility] Urine WBC >100 #/HPF Abnormal NONE SEEN [facility] Urine protein/creatinine rat ioon 03-19-2024 Protein/Creatinine (U) [Ratio] 3.09 [facility] Protein/Creatinine (U) [Ratio] Urine protein/creatinine ratio [facility] Albumin [Mass/volume] in Ser um or Plasmaon 03-17-2024 Albumin [Mass/Vol] 3.2 g/dL 2.9-4.4 [facility] Albumin [Mass/Vol] Albumin [Mass/volume] in Serum or Plasma 2.9-4.4 [facility] Erythrocyte distribution wid th Auto (RBC) [Ratio]on 03-17-2024 Erythrocyte distribution width (RBC) [Ratio] 15.3 % High 11.0-15.0 [facility] Erythrocyte distribution width (RBC) [Ratio] Erythrocyte distribution width [Ratio] by Automated count High 11.0-15.0 [facility] Estimated glomerular filtrat ion rate (GFR) non- Americanon 03-17-2024 GFR/1.73 sq M.predicted among non-blacks MDRD (S/P/Bld) [Vol rate/Area] 29 mL/min/{1.73_m2} Low >=60 [facility] GFR/1.73 sq M.predicted among non-blacks MDRD (S/P/Bld) [Vol rate/Area] Estimated glomerular filtration rate (GFR) non- Low >=60 [facility] Hematocrit Auto (Bld) [Volum e fraction]on 03-17-2024 Hematocrit (Bld) [Volume fraction] 37.9 % 36.0-48.0 [facility] Hematocrit (Bld) [Volume fraction] Hematocrit [Volume Fraction] of Blood by Automated count 36.0-48.0 [facility] Hemoglobin [Mass/volume] in Bloodon 03-17-2024 Hemoglobin (Bld) [Mass/Vol] 11.6 g/dL Low 12.0-16.0 [facility] Hemoglobin (Bld) [Mass/Vol] Hemoglobin [Mass/volume] in Blood Low 12.0-16.0 [facility] IgA [Mass/volume] in Serum o r Plasmaon 03-17-2024 IgA [Mass/Vol] 366 mg/dL 64-422 [facility] IgA [Mass/Vol] IgA [Mass/volume] in Serum or Plasma 64-422 [facility] IgG [Mass/volume] in Serum o r Plasmaon 03-17-2024 IgG [Mass/Vol] 1043 mg/dL 586-1602 [facility] IgG [Mass/Vol] IgG [Mass/volume] in Serum or Plasma 586-1602 [facility] IgM [Mass/volume] in Serum o r Plasmaon 03-17-2024 IgM [Mass/Vol] 87 mg/dL 26-217 [facility] IgM [Mass/Vol] IgM [Mass/volume] in Serum or Plasma 26-217 [facility] Immunoglobulin light chains. kappa.free [Mass/volume] in Serumon 03-17-2024 Immunoglobulin light chains.kappa.free (S) [Mass/Vol] 112.4 mg/L Abnormal 3.3-19.4 [facility] Immunoglobulin light chains.kappa.free (S) [Mass/Vol] Immunoglobulin light chains.kappa.free [Mass/volume] in Serum Abnormal 3.3-19.4 [facility] Immunoglobulin light chains. kappa.free/Immunoglobulin light chains.lambda.free [Radha 03-17-2024 Immunoglobulin light chains.kappa.free/I mmunoglobulin light chains.lambda.free (S) [Mass ratio] 1.84 Abnormal 0.26-1.65 [facility] Comment on above: Performed at: [address] [id number] Director: Mohan Talbert PhD, Phone: [phone] Immunoglobulin light chains.kappa.free/I mmunoglobulin light chains.lambda.free (S) [Mass ratio] Immunoglobulin light chains.kappa.free/I mmunoglobulin light chains.lambda.free [Mass Abnormal 0.26-1.65 [facility] Comment on above: Performed at: - [facility] [id number] [place], [place] [id number] Director: Mohan Talbert PhD, Phone: [phone] Immunoglobulin light chains. lambda.free [Mass/volume] in Serum or Plasmaon 03-17-2024 Immunoglobulin light chains.lambda.free [Mass/Vol] 61.0 mg/L Abnormal 5.7-26.3 [facility] Immunoglobulin light chains.lambda.free [Mass/Vol] Immunoglobulin light chains.lambda.free [Mass/volume] in Serum or Plasma Abnormal 5.7-26.3 [facility] Iron binding capacity [Mass/ volume] in Serum or Plasmaon 03-17-2024 Iron binding capacity [Mass/Vol] 256.0 ug/dL 250.0-450.0 [facility] Iron binding capacity [Mass/Vol] Iron binding capacity [Mass/volume] in Serum or Plasma 250.0-450.0 [facility] Iron saturation [Mass Fracti on] in Serum or Plasmaon 03-17-2024 Iron saturation [Mass fraction] 25.4 % [facility] Iron saturation [Mass fraction] Iron saturation [Mass Fraction] in Serum or Plasma [facility] Laboratory - Chemistry and C hemistry - challengeon 03-17-2024 Albumin [Mass/Vol] 3.1 g/dL Low 3.4-5.0 [facility] Calcium [Mass/Vol] 9.8 mg/dL 8.5-10.1 [facility] Chloride [Moles/Vol] 100 mmol/L 98-107 [facility] CO2 [Moles/Vol] 29.6 mmol/L 21.0-32.0 [facility] Cobalamin (Vitamin B12) [Mass/Vol] 456 pg/mL 232-1245 [facility] Comment on above: Performed at: - [facility] [id number] [place], [place] [id number] Director: Mohan Talbert PhD, Phone: [phone] Creatinine [Mass/Vol] 1.71 mg/dL High 0.55-1.02 [facility] Ferritin [Mass/Vol] 174.0 ng/mL 8.0-252.0 [facility] GFR/1.73 sq M.predicted MDRD (S/P/Bld) [Vol rate/Area] 35 mL/min/{1.73_m2} Low >=60 [facility] Glucose [Mass/Vol] 137 mg/dL High 74-106 [facility] Iron [Mass/Vol] 65.0 ug/dL 50.0-170.0 [facility] Magnesium [Mass/Vol] 1.9 mg/dL 1.8-2.4 [facility] Potassium [Moles/Vol] 4.1 mmol/L 3.5-5.1 [facility] Sodium [Moles/Vol] 140 mmol/L 136-145 [facility] Urate [Mass/Vol] 4.6 mg/dL 2.6-6.0 [facility] Urea nitrogen [Mass/Vol] 37.0 mg/dL High 7.0-18.0 [facility] Urea nitrogen/Creatinine [Mass ratio] 21.6 mg/mg [facility] Leukocytes [#/volume] correc suzi for nucleated erythrocytes in Blood by Automated counon 03-17-2024 WBC corrected for nucl RBC Auto (Bld) [#/Vol] 9.1 10 3/uL 4.0-11.0 [facility] WBC corrected for nucl RBC Auto (Bld) [#/Vol] Leukocytes [#/volume] corrected for nucleated erythrocytes in Blood by Automated coun 4.0-11.0 [facility] MCH Auto (RBC) [Entitic mass ]on 03-17-2024 MCH (RBC) [Entitic mass] 31.2 pg 26.7-34.0 [facility] MCH (RBC) [Entitic mass] MCH [Entitic mass] by Automated count 26.7-34.0 [facility] MCHC Auto (RBC) [Mass/Vol]on 03-17-2024 MCHC (RBC) [Mass/Vol] 30.6 g/dL 29.9-35.2 [facility] MCHC (RBC) [Mass/Vol] MCHC [Mass/volume] by Automated count 29.9-35.2 [facility] MCV Auto (RBC) [Entitic vol] on 03-17-2024 MCV (RBC) [Entitic vol] 101.9 fL High 81.0-99.0 [facility] MCV (RBC) [Entitic vol] MCV [Entitic volume] by Automated count High 81.0-99.0 [facility] No Panel Informationon 03-17 25-Hydroxy Vitamin D Total 91.3 ng/mL [facility] Comment on above: <20 ng/mL Vit D defi cient20-<30 ng/mL Vit D [id number] ng/mL Vit D sufficient>100 ng/mL Potential Toxicity Folate 19.10 ng/mL 8.60-58.90 [facility] Parathyroid Hormone (Intact) 28 pg/mL 15-65 [facility] Comment on above: Performed at: [employer] [address] Director: Mohan Talbert PhD, Phone: [phone] Phosphorus Level 3.6 mg/dL 2.6-4.7 [facility] Protein Electrophoresis M-Rafiq Not Observed g/dL Not Observed [facility] Protein Electrophoresis Note Comment . [facility] Comment on above: Protein electrophore sis scan will follow via computer,mail, or hardware sales assistant delivery. Platelet mean volume Auto (B ld) [Entitic vol]on 03-17-2024 Platelet mean volume (Bld) [Entitic vol] 11.5 fL 9.5-13.5 [facility] Platelet mean volume (Bld) [Entitic vol] Platelet mean volume [Entitic volume] in Blood by Automated count 9.5-13.5 [facility] Platelets Auto (Bld) [#/Vol] on 03-17-2024 Platelets (Bld) [#/Vol] 232 10 3/uL 150-450 [facility] Platelets (Bld) [#/Vol] Platelets [#/volume] in Blood by Automated count 150-450 [facility] Protein [Mass/volume] in Ser um or Plasmaon 03-17-2024 Protein [Mass/Vol] 6.9 g/dL 6.0-8.5 [facility] Protein [Mass/Vol] Protein [Mass/volume] in Serum or Plasma 6.0-8.5 [facility] RBC Auto (Bld) [#/Vol]on RBC (Bld) [#/Vol] 3.72 10 6/uL Low 4.20-5.40 [facility] RBC (Bld) [#/Vol] Erythrocytes [#/volume] in Blood by Automated count Low 4.20-5.40 [facility] Serum globulin measurement ( mass/volume)on 03-17-2024 Globulin (S) [Mass/Vol] 3.7 g/dL 2.2-3.9 [facility] Globulin (S) [Mass/Vol] Serum globulin measurement (mass/volume) 2.2-3.9 [facility] Serum or plasma albumin/glob ulin mass ratioon 03-17-2024 Albumin/Globulin [Mass ratio] 0.9 {ratio} 0.7-1.7 [facility] Albumin/Globulin [Mass ratio] Serum or plasma albumin/globulin mass ratio 0.7-1.7 [facility] Serum or plasma alpha 1 glob ulin measurement by electrophoresis (mass/volume)on 03-17-2024 Alpha 1 globulin Elph [Mass/Vol] 0.3 g/dL 0.0-0.4 [facility] Alpha 1 globulin Elph [Mass/Vol] Serum or plasma alpha 1 globulin measurement by electrophoresis (mass/volume) 0.0-0.4 [facility] Serum or plasma alpha 2 glob ulin measurement by electrophoresis (mass/volume)on 03-17-2024 Alpha 2 globulin Elph [Mass/Vol] 1.3 g/dL Abnormal 0.4-1.0 [facility] Alpha 2 globulin Elph [Mass/Vol] Serum or plasma alpha 2 globulin measurement by electrophoresis (mass/volume) Abnormal 0.4-1.0 [facility] Serum or plasma anion gap de terminationon 03-17-2024 Anion gap [Moles/Vol] 14.5 mmol/L [facility] Anion gap [Moles/Vol] Serum or plasma anion gap determination [facility] Serum or plasma beta globuli n measurement by electrophoresis (mass/volume)on 03-17-2024 Beta globulin Elph [Mass/Vol] 1.0 g/dL 0.7-1.3 [facility] Beta globulin Elph [Mass/Vol] Serum or plasma beta globulin measurement by electrophoresis (mass/volume) 0.7-1.3 [facility] Serum or plasma gamma globul in measurement by electrophoresis (mass/volume)on 03-17-2024 Gamma globulin Elph [Mass/Vol] 1.1 g/dL 0.4-1.8 [facility] Gamma globulin Elph [Mass/Vol] Serum or plasma gamma globulin measurement by electrophoresis (mass/volume) 0.4-1.8 [facility] Serum or plasma immunoelectr ophoresis interpretationon 03-17-2024 Interpretation IEP [Interp] Comment: . [facility] Comment on above: Presence of monoclon al protein is unclear at this time. Suggestrepeat in 3 to 6 months if clinically indicated. Interpretation IEP [Interp] Serum or plasma immunoelectrophores is interpretation . [facility] Comment on above: Presence of monoclon al protein is unclear at this time. Suggestrepeat in 3 to 6 months if clinically indicated. Troponin 1 Hr.on 03-17-2024 Troponin HS 70.30 pg/mL Abnormal 10.10-27.10 [facility] Comment on above: Order Comment: 1830 [...] Sensitivity Troponin I Instructions For Use, Yazmin [place], February 2018) Performed By: #### 1 [id number] #### [facility] [address] [place] [address] Coding Queryon 03-09-2024 Coding Query Coding Query [...] suprapubic pain. She was subsequently admitted to [facility] with acute metabolic encephalopathy secondary to [...] stent. Present on admission. Thank you. Normal [facility] ED Note-Physicianon 03-04-20 ED Note-Physician ED [...] has a cardiac history and follows with [facility] heart cardiology. 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 On deep vein thrombosis (DVT) prophylaxis (Z79.899: 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) Orders: Sodium Chloride 0.9% [...] made to ensure accuracy, however, inadvertently computerized document imaging manager mistakes may be present. Appropriate healthcare PPE was used in evaluating this patient. Problem List/Past Medical History Ongoing Chronic kidney disease, stage 3 unspecified Class 3 severe obesity with serious comorbidity in adult Diabetic pe (more content not included)... Normal [facility] Comment on above: Result Comment: Elec tronically Signed By: Teo Gupta PA-C\\.br\\Date and Time Signed: 02/26/24 19:01 EDT\\.br\\Electronically Co-Signed By: Baljit Hawkins MD\\.br\\Date and Time Co-Signed: 03/04/24 22:01 EDT Troponin 1 Hr.on 03-03-2024 Troponin HS 70.30 pg/mL Abnormal 10.10-27.10 [facility] Comment on above: Order Comment: [id number] [...] High Sensitivity Troponin I Instructions For Use, [place], February 2018) Critical Result Verified by Previous Result The 95% CI (Confidence Interval) PPV (Positive Predictive Value) for myocardial infarction in females is 38 pg/mL, in males 51 pg/mL. The results should be used in conjunction with clinical conditions of myocardial infarction. (Access High Sensitivity Troponin I Instructions For Use, [place], February 2018) Performed By: #### 1 [id number] #### [facility] [address] [id number] General Message Officeon Visualtising Message Office General Message Office --- --- --- --- --- --- --- --- --- From: Nory Nunez To: LEXI TATUM Sent: 03/01/24 02:30:40 AM EDT Subject: Discharge Summary Ready to View A summary regarding your recent visit is available in the Documents section of your health record. Normal [facility] C Urineon 02-29-2024 Bacteria identified Cx [...] Locations R1: This test was performed at: [facility], [address] [place] [address], [address] , , [facility] Comment on above: Performed By: #### 2 [id number] #### [facility] [address] [place] [address] CHEMISTRYOrdered By: Elie DECKER User on 02-29-2024 Glucose [Mass/Vol] 137 mg/dL High 55 - 99 mg/dL FTM C POC Subsection Comment on above: Result Comment: Tomas PERLA POC Device SN [id number] 1 Invalid Interpretation Code [facility] POC Subsection POC User ID [id number] 1 Invalid Interpretation Code FT POC Subsection POC Username JIE MONK Invalid Interpretation Code FT POC Subsection Glucose [Mass/Vol] 130 mg/dL High 55 - 99 mg/dL FTM C POC Subsection Comment on above: Result Comment: Tomas saleem RN/ POC Device SN [id number] 1 Invalid Interpretation Code FT POC Subsection POC User ID [id number] 1 Invalid Interpretation Code [facility] POC Subsection POC Username JIE MONK Invalid Interpretation Code FT POC Subsection Capillary Glucose POCon 02-11 Glucose [Mass/Vol] 137 mg/dL High 55-99 [facility] Comment on above: Result Comment: Tomas saleem RN/ Performed By: #### 2 [id number] #### [facility] [address] [place] [address] Glucose [Mass/Vol] 130 mg/dL High 55-99 [facility] Comment on above: Result Comment: Tomas saleem RN/ Performed By: #### 2 [id number] #### [facility] [address] [place] [address] Discharge Note-Nursingon Discharge Note-Nursing Discharge Note-Nursing LEXI [...] BEST When: 03/05/2024 01:45 PM EDT Where: [address] [place], [place] [id number]- Business (1) Medications What How Much When Why Instructions Next Dose New cephalexin (Keflex 500 mg Cap) 1 Capsules By Mouth 3 times a day Urinary tract infection Duration: 4 Days Pickup at [facility] 03/01/2024 @ 9:00 AM Unchanged acetaminophen [...] Pharmacy Information [facility]: [address] [facility] (more content not included)... Normal [facility] GofH1pwy 02-29-2024 HbA1c (Bld) [Mass fraction] 7.4 % High <=5.9 [facility] Comment on above: Performed By: #### 7 [id number] #### [facility] [address] [place] [address] Inpatient Clinical Summaryon 02-29-2024 Inpatient Clinical Summary Inpatient Clinical Summary [address] [address] Clinical Summary Person Information: Name: LEXI TATUM Age: 78 Years : 1945 Sex: Female PCP: STEFAN BEST MD Marital Status: Race: White Ethnicity: Non- or Language: Montenegrin Visit Id: Visit Reason: Chest pain; ALOC Speciality: Acuity: Enc Type: Inpatient Med Service: Medical Arrival: 02/26/2024 17:28:58 Discharge: Dispo Type: Admitted as IP to this Hosp Address: [address] [place] [id number] Provider Notes: Diagnosis: 1:Acute metabolic encephalopathy; 2:Sepsis; [...] Follow up: With: Address: When: STEFAN BEST [address] [place] [address] [facility] (1) 03/05/2024 1:45 PM Patient Education Information: Normal [facility] Inpatient Patient Summaryon 02-29-2024 Inpatient Patient Summary Inpatient Patient Summary [address] [address] Patient Discharge Instructions PERSON INFORMATION [...] With: Address: When: STEFAN BEST [address] [place] [address] Business (1) 03/05/2024 1:45 PM In the [...] New Medications [facility], [address] [place], [place] [id number], [phone] cephalexin (Keflex 500 mg Cap) 1 Capsules [...] AC&HS. Refills (more content not included)... Normal [facility] BMPon 02-28-2024 Anion gap [Moles/Vol] 12 mmol/L Normal -16 [facility] Comment on above: Performed By: #### 2 [id number] #### [facility] [address] [place] [address] Calcium [Mass/Vol] 8.8 mg/dL Low 8.9-11.1 [facility] Comment on above: Performed By: #### 2 [id number] #### [facility] [address] [place] [address] Chloride [Moles/Vol] 104 mmol/L Normal 101-111 [facility] Comment on above: Performed By: #### 2 [id number] #### [facility] [address] [place] [address] CO2 [Moles/Vol] 25 mmol/L Normal 21-31 [facility] Comment on above: Performed By: #### 2 [id number] #### [facility] [address] [facility] [place] [address] Creatinine [Mass/Vol] 1.5 mg/dL High 0.5-1.3 [facility] Comment on above: Performed By: #### 2 [id number] #### [facility] [address] [place] [address] Glucose [Mass/Vol] 53 mg/dL Low 55-199 [facility] Comment on above: Performed By: #### 2 [id number] #### [facility] [address] [place] [address] Potassium [Moles/Vol] 4.5 mmol/L Normal 3.5-5.3 [facility] Comment on above: Performed By: #### 2 [id number] #### [facility] [address] [place] [address] Sodium [Moles/Vol] 136 mmol/L Normal 135-145 [facility] Comment on above: Performed By: #### 2 [id number] #### [facility] [address] [place] [address] Urea nitrogen [Mass/Vol] 36 mg/dL High 5-21 [facility] Comment on above: Performed By: #### 2 [id number] #### [facility] [address] [place] [address] Urea nitrogen/Creatinine [Mass ratio] 24 No Units High 10-20 [facility] Comment on above: Performed By: #### 2 [id number] #### [facility] [address] [place] [address] CHEMISTRYOrdered By: Lab ROP User on 02-28-2024 Glucose [Mass/Vol] 132 mg/dL High 55 - 99 mg/dL [facility] C POC Subsection Comment on above: Result Comment: Tomas saleem RN/ POC Device SN [id number] 1 Invalid Interpretation Code [facility] POC Subsection POC User ID [id number] 1 Invalid Interpretation Code [facility] POC Subsection POC Username ANTONELLA MUNGUIA Invalid Interpretation Code [facility] POC Subsection CHEMISTRYOrdered By: SYSTEM SYSTEM on [...] 02-11 Glucose [Mass/Vol] 132 mg/dL High 55-99 [facility] Comment on above: Result Comment: Tomas PERLA Performed By: #### 2 [id number] #### [facility] [address] [place] [address] Glucose [Mass/Vol] 118 mg/dL High 55-99 [facility] Comment on above: Result Comment: Tomas PERLA Performed By: #### 2 [id number] #### [facility] [address] [place] [address] Glucose [Mass/Vol] 229 mg/dL High 55-99 [facility] Comment on above: Result Comment: Tomas PERLA Performed By: #### 2 [id number] #### [facility] [address] [place] [address] Glucose [Mass/Vol] 229 mg/dL High 55-99 [facility] Comment on above: Performed By: #### 2 [id number] #### [facility] [address] [place] [address] Glucose [Mass/Vol] 56 mg/dL Normal 55-99 [facility] Comment on above: Result Comment: Tomas PERLA Performed By: #### 2 [id number] #### [facility] [address] [place] [address] Extra [place] 02-28-2024 WB Tube Collected Yes Invalid Interpretation Code [facility] Comment on above: Performed By: #### 1 [id number] #### [facility] [address] [place] [address] eGFRon 02-28-2024 eGFR 35 mL/min/1.73 m2 Low >=59 [facility] Comment on above: Order Comment: Order added by Discern Expert. Performed By: #### 1 [id number] #### [facility] [address] [place] [address] BMPon 02-27-2024 Anion gap [Moles/Vol] 12 mmol/L Normal 6-16 [facility] Comment on above: Performed By: #### 2 [id number] #### [facility] [address] [place] [address] Calcium [Mass/Vol] 8.4 mg/dL Low 8.9-11.1 [facility] Comment on above: Performed By: #### 2 [id number] #### [facility] [address] [place] [address] Chloride [Moles/Vol] 104 mmol/L Normal 101-111 [facility] Comment on above: Performed By: #### 2 [id number] #### [facility] [address] [place] [address] CO2 [Moles/Vol] 25 mmol/L Normal 21-31 [facility] Comment on above: Performed By: #### 2 [id number] #### [facility] [address] [place] [address] Creatinine [Mass/Vol] 1.6 mg/dL High 0.5-1.3 [facility] Comment on above: Performed By: #### 2 [id number] #### [facility] [address] [place] [address] Glucose [Mass/Vol] 182 mg/dL Normal 55-199 [facility] Comment on above: Performed By: #### 2 [id number] #### [facility] [address] [place] [address] Potassium [Moles/Vol] 4.6 mmol/L Normal 3.5-5.3 [facility] Comment on above: Performed By: #### 2 [id number] #### [facility] [address] [place] [address] Sodium [Moles/Vol] 136 mmol/L Normal 135-145 [facility] Comment on above: Performed By: #### 2 [id number] #### [facility] [address] [place] [address] Urea nitrogen [Mass/Vol] 40 mg/dL High 5-21 [facility] Comment on above: Performed By: #### 2 [id number] #### [facility] [address] [place] [address] Urea nitrogen/Creatinine [Mass ratio] 25 No Units High 10-20 [facility] Comment on above: Performed By: #### 2 [id number] #### [facility] [address] [place] [address] CBC w/ Auto Diffon 4 Basophils/100 WBC (Bld) 0.3 % Normal 0.0-2.0 [facility] Comment on above: Performed By: #### 2 [id number] #### [facility] [address] [place] [address] Basophils/Leukocyte s Auto (Bld) [Pure # fraction] 0.0 E9/L Normal 0.0-0.2 [facility] Comment on above: Performed By: #### 2 [id number] #### [facility] [address] [place] [address] Eosinophils (Bld) [#/Vol] 0.0 E9/L Normal 0.0-0.5 [facility] Comment on above: Performed By: #### 2 [id number] #### [facility] [address] [place] [address] Eosinophils/100 WBC (Bld) 0.3 % Normal 0.0-8.0 [facility] Comment on above: Performed By: #### 2 [id number] #### [facility] [address] [place] [address] Erythrocyte distribution width (RBC) [Ratio] 16.2 % High 10.9-14.2 [facility] Comment on above: Performed By: #### 2 [id number] #### [facility] [address] [place] [address] Hematocrit (Bld) [Volume fraction] 34.2 % Normal 34.0-46.0 [facility] Comment on above: Performed By: #### 2 [id number] #### [facility] [address] [place] [address] Hemoglobin (Bld) [Mass/Vol] 11.0 g/dL Low 12.0-16.0 [facility] Comment on above: Performed By: #### 2 267344 #### [facility] [address] [place] [address] Lymphocytes (Bld) [#/Vol] 0.8 E9/L Low 1.0-4.0 [facility] Comment on above: Performed By: #### 2 [id number] #### [facility] [address] [place] [address] Lymphocytes/100 WBC (Bld) 8.7 % Low 14.0-50.0 [facility] Comment on above: Performed By: #### 2 [id number] #### [facility] [address] [place] [address] MCH (RBC) [Entitic mass] 32.0 pg Normal 27.0-34.0 [facility] Comment on above: Performed By: #### 2 [id number] #### [facility] [address] [place] [address] MCHC (RBC) [Mass/Vol] 32.2 g/dL Normal 31.4-36.0 [facility] Comment on above: Performed By: #### 2 178145 #### [facility] [address] [place] [address] MCV (RBC) [Entitic vol] 99.4 fL Normal 80.0-100.0 [facility] Comment on above: Performed By: #### 2 [id number] #### [facility] [address] [place] [address] Monocytes (Bld) [#/Vol] 0.7 E9/L Normal 0.2-1.0 [facility] Comment on above: Performed By: #### 2 843471 #### [facility] [address] [place] [address] Neutrophils (Bld) [#/Vol] 7.9 E9/L High 2.0-7.5 [facility] Comment on above: Performed By: #### 2 911388 #### [facility] [address] [place] [address] Neutrophils/100 WBC (Bld) 83.7 % High 36.0-75.0 [facility] Comment on above: Performed By: #### 2 [id number] #### [facility] [address] [place] [address] Platelet mean volume (Bld) [Entitic vol] 9.0 fL Normal 6.4-10.8 [facility] Comment on above: Performed By: #### 2 038659 #### [facility] [address] [place] [address] Platelets (Bld) [#/Vol] 215.0 E9/L Normal 150.0-500.0 [facility] Comment on above: Performed By: #### 2 [id number] #### [facility] [address] [place] [address] RBC (Bld) [#/Vol] 3.4 E12/L Low 4.3-5.9 [facility] Comment on above: Performed By: #### 2 279237 #### [facility] [address] [place] [address] WBC corrected for nucl RBC Auto (Bld) [#/Vol] 9.5 E9/L Normal 4.0-11.0 [facility] Comment on above: Performed By: #### 2 419243 #### [facility] [address] [place] [address] CHEMISTRYOrdered By: SYSTEM SYSTEM on 02-27-2024 Anion [...] Sensitivity Troponin I Instructions For Use, [place], February 2018) CHEMISTRYOrdered By: Bre Heart on 02-27-2024 HbA1c (Bld) [Mass fraction] 7.4 % High <=5.9% [facility] ChemAutoSS CT Head or Brain w/o Contras [...] MD Transcribed by: NIKKI Technologist: ALEX Normal [facility] Capillary Glucose POCon 02-11 Glucose [Mass/Vol] 181 mg/dL High 55-99 [facility] Comment on above: Result Comment: Tomas PERLA Performed By: #### 2 [id number] #### [facility] [address] [place] [address] Glucose [Mass/Vol] 153 mg/dL High 55-99 [facility] Comment on above: Performed By: #### 2 [id number] #### [facility] [address] [place] [address] Glucose [Mass/Vol] 147 mg/dL High 55-99 [facility] Comment on above: Result Comment: Tomas PERLA Performed By: #### 2 [id number] #### [facility] [address] [place] [address] Glucose [Mass/Vol] 159 mg/dL High 55-99 [facility] Comment on above: Performed By: #### 2 [id number] #### [facility] [address] [place] [address] Coding Queryon 02-27-2024 Coding Query Coding Query -- From: Sherif Puckett RN To: Allison CHANCE MD; Sent: 02/27/2024 07:17:42 EDT Subject: Coding Query Due Date/Time: 02/28/2024 07:17:00 EDT Caller Name: LEIX TATUM; Caller Number: H , M Documentation [...] Caller Number: H , M Thank you. [facility] Coding Query Coding Query -- From: Sherif [...] No Sepsis- POA; Had AMS also Normal [facility] Coding Query Coding Query -- From: Sherif Puckett RN To: Allison CHANCE MD; Sent: 02/27/2024 07:17:42 EDT Subject: Coding Query Due Date/Time: 02/28/2024 07:17:00 EDT Caller Name: LEIX TATUM; Caller Number: H , M Documentation [...] is desired or expected. Thank you!sherif [id number] [facility] Coding Query Coding Query -- From: Sherif Puckett RN To: KADE MARLOW, [facility] Sent: 02/27/2024 07:12:49 EDT ! Subject: Coding [...] desired or expected. Thank you!sherif [id number] Normal [facility] HEMATOLOGYOrdered By: SYSTEM SYSTEM on 02-27-2024 [...] 02-27-2024 Inpatient Clinical Summary Inpatient Clinical Summary [address] [address] Clinical Summary Person Information: Name: LEXI TATUM Age: 78 Years : 1945 Sex: Female PCP: STEFAN BEST MD Marital Status: Race: White Ethnicity: Non- or Language: Montenegrin Visit Id: Visit Reason: Chest pain; ALOC Speciality: Acuity: Enc Type: Inpatient Med Service: Medical Arrival: 02/26/2024 17:28:58 Discharge: Dispo Type: Admitted as IP to this Hosp Address: [address] [place] [phone] Provider Notes: Diagnosis: 1:Acute metabolic encephalopathy; 2:Sepsis; [...] Follow up: With: Address: When: STEFAN BEST [address] [place] [address] Business (1) Patient Education Information: Normal [facility] Inpatient Patient Summaryon 02-27-2024 Inpatient Patient Summary Inpatient Patient Summary [address] [address] Patient Discharge Instructions PERSON INFORMATION Name: LEXI [...] Follow up: With: Address: When: [place] [address] Business (1) In the event that this [...] Dose: rosuvasta (more content not included)... Normal [facility] Interdisciplinary Note - Tejas e Manageron 02-27-2024 Interdisciplinary Note - Radio News Writer Interdisciplinary Note - Radio News Writer CRM to room to discuss DC planning. [...] board updated. CRM following [facility] accepts on [facility] side with semi private room, has to have 3 M stay and could DC 02/28 [facility] accepted if that is plan at DC Patient does not want a shared room and said she will just DC home with HH Normal [facility] Comment on above: Result Comment: Elec tronically Signed By: Stacie Watts\\.br\\Date and Time Signed: 02/27/24 15:22 EDT Interdisciplinary [...] to follow Friday-Friday, progressing as tolerates. Normal [facility] Interdisciplinary Note - PTo n 02-27-2024 Interdisciplinary Note - PT Interdisciplinary Note - PT Initial PT eval completed. 6 Clicks AM-PAC . Recommend SNF vs HH PT. FAmily concern with safety at home alone when they are working. Spouse also to have TKA next week. Pt would benefit from strengthening prior to pending LIVIER. Will see daily. Normal [facility] Interdisciplinary Note - Soc ial Workeron 02-27-2024 Interdisciplinary Note - Inlayer Silver Interdisciplinary Note - Inlayer Silver There was a system generated request for [...] if there are any further questions. Normal [facility] Lactic Acidon 02-27-2024 Lactic Acid Lvl 1.4 mmol/L Normal 0.5-2.2 [facility] Comment on above: Performed By: #### 2 [id number] #### [facility] [address] [place] [address] TOBRAMYCIN:SUSC:PT:ISOLATE:O RDQN:MICOrdered By: Elisa Love on 02-27-2024 Tobramycin JOHAN [Susc] 20,000 cfu/ml Escherichia coli [facility] Tobramycin JOHAN [Susc]Ordered By: Elisa Love on 02-27-2024 Escherichia coli Escherichia coli [facility] Troponin 6 Hr.on 02-27-2024 Troponin HS 38.90 pg/mL Abnormal 10.10-27.10 [facility] Comment on above: Result Comment: Crit [...] Sensitivity Troponin I Instructions For Use, [place], February 2018) Performed By: #### 1 [id number] #### [facility] [address] [place] [address] UA with Cult Rflxon 02-27-20 24 Bilirubin Ql (U) dupl Invalid Interpretation Code [facility] Comment on above: Performed By: #### 4 [id number] #### [facility] [address] [place] [address] Clarity (U) dupl Invalid Interpretation Code [facility] Comment on above: Performed By: #### 4 [id number] #### [facility] [address] [facility] [place] [address] Color (U) dupl Invalid Interpretation Code [facility] Comment on above: Result Comment: dupl icate order/credited 02/27/2024 08:19 CSS Microscopic readings are only performed on those samples that meet specific criteria set forth by [facility]. Performed By: #### 4 [id number] #### [facility] [address] [place] [address] Glucose Ql (U) dupl Invalid Interpretation Code [facility] Comment on above: Performed By: #### 4 [id number] #### [facility] [address] [place] [address] Hemoglobin Auto test strip (U) [Mass/Vol] dupl Invalid Interpretation Code [facility] Comment on above: Performed By: #### 4 [id number] #### [facility] [address] [place] [address] Ketones Auto test strip Ql (U) dupl Invalid Interpretation Code [facility] Comment on above: Performed By: #### 4 [id number] #### [facility] [address] [place] [address] Leukocyte esterase Auto test strip Ql (U) dupl Invalid Interpretation Code [facility] Comment on above: Performed By: #### 4 [id number] #### [facility] [address] [place] [address] Nitrite Auto test strip Ql (U) dupl Invalid Interpretation Code [facility] Comment on above: Performed By: #### 4 [id number] #### [facility] [address] [place] [address] pH (U) dupl Invalid Interpretation Code 5.0-9.0 [facility] Comment on above: Performed By: #### 4 [id number] #### [facility] [address] [place] [address] Protein Ql (U) dupl Invalid Interpretation Code [facility] Comment on above: Performed By: #### 4 [id number] #### [facility] [address] [place] [address] Specific gravity (U) [Rel density] dupl Invalid Interpretation Code 1.005-1.030 [facility] Comment on above: Performed By: #### 4 [id number] #### [facility] [address] [place] [address] Urobilinogen (U) [Mass/Vol] dupl Invalid Interpretation Code [facility] Comment on above: Performed By: #### 4 [id number] #### [facility] [address] [place] [address] Bacteria Auto Ql (U) 1+ /HPF Abnormal Trace [facility] Comment on above: Performed By: #### 4 [id number] #### [facility] [address] [place] [address] Bilirubin Ql (U) Negative Normal Negative [facility] Comment on above: Performed By: #### 4 [id number] #### [facility] [address] [place] [address] Clarity (U) Turbid Abnormal Clear [facility] Comment on above: Performed By: #### 4 [id number] #### [facility] [address] [place] [address] Color (U) [place] Abnormal Yellow [facility] Comment on above: Result Comment: Micr oscopic readings are only performed on those samples that meet specific criteria set forth by [facility]. Performed By: #### 4 [id number] #### [facility] [address] [place] [address] Epithelial cells.squamous Auto (Urine sed) [#/Area] 0-2 Invalid Interpretation Code [facility] Comment on above: Performed By: #### 4 [id number] #### [facility] [address] [place] [address] Glucose Ql (U) Negative Normal Negative [facility] Comment on above: Performed By: #### 4 [id number] #### [facility] [address] [place] [address] Hemoglobin Auto test strip (U) [Mass/Vol] 3+ mg/dL Abnormal Negative [facility] Comment on above: Performed By: #### 4 [id number] #### [facility] [address] [place] [address] Ketones Auto test strip Ql (U) Negative Normal Negative [facility] Comment on above: Performed By: #### 4 [id number] #### [facility] [address] [place] [address] Leukocyte clumps Auto (Urine sed) [#/Area] 11-20 Abnormal [facility] Comment on above: Performed By: #### 4 [id number] #### [facility] [address] [place] [address] Leukocyte esterase Auto test strip Ql (U) 500 [place]/uL Abnormal Negative [facility] Comment on above: Performed By: #### 4 [id number] #### [facility] [address] [place] [address] Mucus Auto Ql (U) Trace Normal Negative [facility] Comment on above: Performed By: #### 4 [id number] #### [facility] [address] [place] [address] Nitrite Auto test strip Ql (U) 1+ mg/dL Abnormal Negative [facility] Comment on above: Performed By: #### 4 [id number] #### [facility] [address] [place] [address] pH (U) 7.0 [pH] Invalid Interpretation Code 5.0-9.0 [facility] Comment on above: Performed By: #### 4 [id number] #### [facility] [address] [place] [address] Protein Ql (U) 2+ mg/dL Abnormal Negative [facility] Comment on above: Performed By: #### 4 [id number] #### [facility] [address] [place] [address] RBC Ql (U) 31-75 Abnormal 0-3 [facility] Comment on above: Performed By: #### 4 [id number] #### [facility] [address] [place] [address] Specific gravity (U) [Rel density] 1.011 Invalid Interpretation Code 1.005-1.030 [facility] Comment on above: Performed By: #### 4 [id number] #### [facility] [address] [place] [address] Urobilinogen (U) [Mass/Vol] Negative Normal Negative [facility] Comment on above: Performed By: #### 4 [id number] #### [facility] [address] [place] [address] WBC Auto (Urine sed) [#/Area] >75 Abnormal 0-5 [facility] Comment on above: Performed By: #### 4 [id number] #### [facility] [address] [place] [address] URINALYSISOrdered By: SYSTEM SYSTEM on 02-27-2024 Bacteria Auto Ql (U) 1+ /HPF Invalid Interpretation Code Trace/HPF FT UA Auto SS Bilirubin Ql (U) Negative Normal Negativemg/dL [facility] UA Auto SS Clarity (U) Turbid *ABN* (02/27/24 3:19 AM) Invalid Interpretation Code Clear [facility] UA Auto SS Color (U) [place] 3 *ABN* (02/27/24 3:19 AM) Invalid Interpretation Code Yellow [facility] UA Auto SS Comment on above: Interpretive Data: M icroscopic readings are only performed on those samples that meet specific criteria set forth by [facility]. Epithelial cells.squamous Auto (Urine sed) [...] sed) [#/Area] 11-20 graded/HPF Invalid Interpretation Code [facility] UA Auto SS Leukocyte esterase Auto test strip Ql (U) 500 [place]/uL [place]/uL Invalid Interpretation Code NegativeLeu/uL [facility] UA Auto SS Mucus Auto Ql (U) Trace graded/LPF Normal Negativegrad ed/LPF [facility] UA Auto SS Nitrite Auto test strip Ql (U) 1+ mg/dL Invalid Interpretation Code Negativemg/dL [facility] UA Auto SS pH (U) 7.0 *NA* (02/27/24 3:19 AM) Invalid Interpretation Code 5.0 - 9.0 [facility] UA Auto SS Protein Ql (U) 2+ mg/dL Invalid Interpretation Code Negativemg/dL [facility] UA Auto SS RBC Ql (U) 31-75 graded/HPF Invalid Interpretation Code 0-3graded/HPF [facility] UA Auto SS Specific gravity (U) [Rel density] 1.011 *NA* (02/27/24 3:19 AM) Invalid Interpretation Code 1.005 - 1.030 [facility] UA Auto SS Urobilinogen (U) [Mass/Vol] Negative Normal Negativemg/dL [facility] UA Auto SS WBC Auto (Urine sed) [#/Area] >75 graded/HPF Invalid Interpretation Code 0-5graded/HPF [facility] UA Auto SS URINALYSISOrdered By: Elisa Love on 02-27-2024 Bilirubin Ql (U) dupl Invalid Interpretation Code [facility] UA Auto SS Clarity (U) dupl Invalid Interpretation Code [facility] UA Auto SS Color (U) dupl Invalid Interpretation Code [facility] UA Auto SS Comment on above: Result Comment: bob curran order/credited 02/27/2024 08:19 CSS Interpretive Data: M icroscopic readings are only performed on those samples that meet specific criteria set forth by [facility]. Glucose Ql (U) dupl Invalid Interpretation Code [facility] UA Auto SS Hemoglobin Auto test strip (U) [Mass/Vol] dupl Invalid Interpretation Code [facility] UA Auto SS Ketones Auto test strip Ql (U) dupl Invalid Interpretation Code MC UA Auto SS Leukocyte esterase Auto test strip Ql (U) dupl Invalid Interpretation Code [facility] UA Auto SS Nitrite Auto test strip Ql (U) dupl Invalid Interpretation Code [facility] UA Auto SS pH (U) dupl Invalid Interpretation Code 5.0 - 9.0 [facility] UA Auto SS Protein Ql (U) dupl Invalid Interpretation Code [facility] UA Auto SS Specific gravity (U) [Rel density] dupl Invalid Interpretation Code 1.005 - 1.030 [facility] UA Auto SS Urobilinogen (U) [Mass/Vol] dupl Invalid Interpretation Code [facility] UA Auto SS URINALYSISOrdered By: Teo Gupta on 02-27-2024 UA Spec Desc Clean Catch (02/27/24 3:19 AM) Normal [facility] UA Auto SS Work Phone: URINALYSISOrdered By: Marifer CHANCE on 02-27-2024 UA Spec Desc Random Urine (02/27/24 3:19 AM) Normal [facility] UA Auto SS Work Phone: XR Chest [...] mGy = . DAP = . Normal [facility] eGFRon 02-27-2024 eGFR 33 mL/min/1.73 m2 Low >=59 [facility] Comment on above: Order Comment: Order added by Discern Expert. Performed By: #### 1 [id number] #### [facility] [address] [place] [address] BB Draw & Holdon 02-26-2024 BB D&H Sample drawn for Blood Ba Normal [facility] Comment on above: Performed By: #### 1 [id number] #### [facility] [address] [place] [address] BMPon 02-26-2024 Anion gap [Moles/Vol] 11 mmol/L Normal 6-16 [facility] Comment on above: Performed By: #### 2 [id number] #### [facility] [address] [place] [address] Calcium [Mass/Vol] 8.7 mg/dL Low 8.9-11.1 [facility] Comment on above: Performed By: #### 2 [id number] #### [facility] [address] [place] [address] Chloride [Moles/Vol] 100 mmol/L Low 101-111 [facility] Comment on above: Performed By: #### 2 [id number] #### [facility] [address] [place] [address] CO2 [Moles/Vol] 26 mmol/L Normal 21-31 [facility] Comment on above: Performed By: #### 2 [id number] #### [facility] [address] [place] [address] Creatinine [Mass/Vol] 1.8 mg/dL High 0.5-1.3 [facility] Comment on above: Performed By: #### 2 [id number] #### [facility] [address] [place] [address] Glucose [Mass/Vol] 97 mg/dL Normal 55-199 [facility] Comment on above: Performed By: #### 2 [id number] #### [facility] [address] [place] [address] Potassium [Moles/Vol] 4.4 mmol/L Normal 3.5-5.3 [facility] Comment on above: Performed By: #### 2 [id number] #### [facility] [address] [place] [address] Sodium [Moles/Vol] 133 mmol/L Low 135-145 [facility] Comment on above: Performed By: #### 2 [id number] #### [facility] [address] [place] [address] Urea nitrogen [Mass/Vol] 39 mg/dL High 5-21 [facility] Comment on above: Performed By: #### 2 [id number] #### [facility] [address] [place] [address] Urea nitrogen/Creatinine [Mass ratio] 22 No Units High 10-20 [facility] Comment on above: Performed By: #### 2 [id number] #### [facility] [address] [place] [address] CBC w/ Auto Diffon 4 Basophils/100 WBC (Bld) 1.0 % Normal 0.0-2.0 [facility] Comment on above: Performed By: #### 2 [id number] #### [facility] [address] [place] [address] Basophils/Leukocyte s Auto (Bld) [Pure # fraction] 0.1 E9/L Normal 0.0-0.2 [facility] Comment on above: Performed By: #### 2 [id number] #### [facility] [address] [place] [address] Eosinophils (Bld) [#/Vol] 0.1 E9/L Normal 0.0-0.5 [facility] Comment on above: Performed By: #### 2 [id number] #### [facility] [address] [place] [address] Eosinophils/100 WBC (Bld) 0.5 % Normal 0.0-8.0 [facility] Comment on above: Performed By: #### 2 [id number] #### [facility] [address] [place] [address] Erythrocyte distribution width (RBC) [Ratio] 15.8 % High 10.9-14.2 [facility] Comment on above: Performed By: #### 2 [id number] #### [facility] [address] [place] [address] Hematocrit (Bld) [Volume fraction] 34.4 % Normal 34.0-46.0 [facility] Comment on above: Performed By: #### 2 [id number] #### [facility] [address] [place] [address] Hemoglobin (Bld) [Mass/Vol] 10.8 g/dL Low 12.0-16.0 [facility] Comment on above: Performed By: #### 2 [id number] #### [facility] [address] [place] [address] Lymphocytes (Bld) [#/Vol] 1.1 E9/L Normal 1.0-4.0 [facility] Comment on above: Performed By: #### 2 [id number] #### [facility] [address] [place] [address] Lymphocytes/100 WBC (Bld) 8.4 % Low 14.0-50.0 [facility] Comment on above: Performed By: #### 2 [id number] #### [facility] [address] [place] [address] MCH (RBC) [Entitic mass] 31.4 pg Normal 27.0-34.0 [facility] Comment on above: Performed By: #### 2 [id number] #### [facility] [address] [place] [address] MCHC (RBC) [Mass/Vol] 31.5 g/dL Normal 31.4-36.0 [facility] Comment on above: Performed By: #### 2 [id number] #### [facility] [address] [place] [address] MCV (RBC) [Entitic vol] 99.8 fL Normal 80.0-100.0 [facility] Comment on above: Performed By: #### 2 [id number] #### [facility] [address] [place] [address] Monocytes (Bld) [#/Vol] 1.0 E9/L Normal 0.2-1.0 [facility] Comment on above: Performed By: #### 2 [id number] #### [facility] [address] [place] [address] Neutrophils (Bld) [#/Vol] 10.5 E9/L High 2.0-7.5 [facility] Comment on above: Performed By: #### 2 [id number] #### [facility] [address] [place] [address] Neutrophils/100 WBC (Bld) 82.2 % High 36.0-75.0 [facility] Comment on above: Performed By: #### 2 [id number] #### [facility] [address] [place] [address] Platelet mean volume (Bld) [Entitic vol] 8.8 fL Normal 6.4-10.8 [facility] Comment on above: Performed By: #### 2 [id number] #### [facility] [address] [place] [address] Platelets (Bld) [#/Vol] 211.0 E9/L Normal 150.0-500.0 [facility] Comment on above: Performed By: #### 2 [id number] #### [facility] [address] [place] [address] RBC (Bld) [#/Vol] 3.4 E12/L Low 4.3-5.9 [facility] Comment on above: Performed By: #### 2 [id number] #### [facility] [address] [place] [address] WBC corrected for nucl RBC Auto (Bld) [#/Vol] 12.8 E9/L High 4.0-11.0 [facility] Comment on above: Performed By: #### 2 [id number] #### [facility] [address] [place] [address] CHEMISTRYOrdered By: SYSTEM SYSTEM on 02-26-2024 Troponin HS 59.70 pg/mL Invalid Interpretation Code 10.10 - 27.10 pg/mL [facility] Comment on above: Result Comment: Crit ical Result Verified by Previous Result Critical Result I_TnIHS:59.7 Called to and read back by: AMANDA PRESLEY at: 02/26/2024 21:24:01 by:[id number] Interpretive Data: T he 95% CI (Confidence Interval) PPV (Positive Predictive Value) for myocardial infarction in females is 38 pg/mL, in males 51 pg/mL. The results should be used in conjunction with clinical conditions of myocardial infarction. (Access High Sensitivity Troponin I Instructions For Use, [employer], February 2018) Lactic Acid Lvl 0.6 mmol/L [...] High Sensitivity Troponin I Instructions For Use, tabulate [place], February 2018) Anion gap [Moles/Vol] 11 mmol/L [...] 30.9 s Normal 25.1 - 36.5 second(s) [facility] Auto Coag Comment on above: Interpretive Data: [...] the same coagulation reagent and instrumentation as [facility]. Currently there are no coagulation studies available worldwide for children to 14 days, and no normal ranges. Heparin therapeutic range (represented by Anti-Factor Xa activity of 0.2 - 0.4 U/mL) corresponds to PTT of 56.6 - 109.0 sec. INR Coag (PPP) [Relative time] 1.07 {INR} Invalid Interpretation Code [facility] Auto Coag Comment on above: Interpretive Data: I NR results are specifically intended to assess patients stabilized on long-term Anticoagulation therapy suggested INR s Less Intensive Anticoagulation 2.0 3.0 Conventional Range 3.0 4.5 PT Coag (PPP) [Time] 12.0 s Normal 9.4 - 12.5 second(s) [facility] Auto Coag Comment on above: Interpretive Data: [...] the same coagulation reagent and instrumentation as [facility]. Currently there are no coagulation studies available worldwide for children to 14 days, and no normal ranges. Capillary Glucose POCon 02-11 Glucose [Mass/Vol] 64 mg/dL Normal 55-99 [facility] Comment on above: Result Comment: Tomas saleem RN/MD Performed By: #### 2 [id number] #### [facility] [address] [place] [address] ED Clinical Summaryon 2023 ED Clinical Summary ED Clinical Summary [address] [address] ED Clinical Summary Person Information Name: LEXI TATUM [facility] Age: 78 Years : 1945 Sex: Female Language: Montenegrin PCP: STEFAN BEST MD Marital Status: Visit Id: Visit Reason: Chest pain; ALOC Speciality: Acuity: 1 Enc Type: Observation Med Service: Emergency Arrival: 02/26/2024 17:28:58 Discharge: LOS: 000 02:17 Checkin: 02/26/2024 17:28:58 Checkout: 02/26/2024 19:45:18 Dispo Type: Admitted as IP to this [facility] EVENTS: Event Name Event Status Request [...] 18:57:34 Patient Care Request 02/26/2024 18:57:34 ADDRESS: [address] [place] [id number] PHYS DOC NOTES: MEDICAL INFORMATION: Prescriptions Given: PATIENT EDUCATION INFORMATION: Instructions: Follow up: DIAGNOSIS: 1:Sepsis; 2:Urinary tract infection; 3:Acute kidney injury; 4:Generalized weakness; 5:Diabetes; 6:Pure hypercholesterolemi a; 7:Class 3 severe obesity with serious comorbidity in adult; 8:Coronary artery disease; 9:On deep vein thrombosis (DVT) prophylaxis Normal [facility] ED Patient Education Noteon 02-26-2024 ED Patient Education Note ED Patient Education Note Normal [facility] ED Patient Summaryon 024 ED Patient Summary ED Patient Summary [place] [id number] Patient Discharge Instructions Person Information Name: LEXI TATUM Age: 78 Years Arrival Date: 02/26/2024 17:28:58 Discharge Diagnosis: 1:Sepsis; 2:Urinary tract infection; 3:Acute kidney injury; 4:Generalized weakness; 5:Diabetes; 6:Pure hypercholesterolemi a; 7:Class 3 severe obesity with serious comorbidity in adult; 8:Coronary artery disease; 9:On deep vein thrombosis (DVT) prophylaxis Primary Care Physician: STEFAN BEST MD Provider Information Primary Provider: Advanced Performance Improvement Director:Teo Gupta PA-C The exam and treatment you received in the Emergency Department were for an urgent problem and are not intended as complete care. It is important that you follow up with a doctor, nurse practitioner, or physician?s assistant professor of radiology for ongoing care. If your symptoms become [...] opioids can be used to help relieve [id number] pain and are often prescribed following a [...] be struggling with addiction, tell your health care transitions nurse and ask fo (more content not included)... Normal [facility] HEMATOLOGYOrdered By: SYSTEM SYSTEM on 02-26-2024 [...] Lactic Acid Lvl 0.6 mmol/L Normal 0.5-2.2 [facility] Comment on above: Performed By: #### 2 [id number] #### [facility] [address] [place] [address] No Panel InformationOrdered By: [facility] MICROBIOLOGY on 02-26-2024 Blood Culture Charcoal No growth at 3 days. Final to follow at [address] [facility] PT & PTTon 02-26-2024 aPTT Coag (PPP) [Time] 30.9 second(s) Normal 25.1-36.5 [facility] Comment on above: Result Comment: Para [...] the same coagulation reagent and instrumentation as [facility]. Currently there are no coagulation studies available worldwide for children to 14 days, and no normal ranges. Heparin therapeutic range (represented by Anti-Factor Xa activity of 0.2 - 0.4 U/mL) corresponds to PTT of 56.6 - 109.0 sec. Performed By: #### 1 [id number] #### [facility] [address] [place] [address] INR Coag (PPP) [Relative time] 1.07 {INR} Invalid Interpretation Code [facility] Comment on above: Result Comment: INR results are specifically intended to assess patients stabilized on long-term Anticoagulation therapy suggested INR?s ?Less Intensive Anticoagulation? 2.0 ? 3.0 Conventional Range 3.0 ? 4.5 Performed By: #### 1 [id number] #### [facility] [address] [place] [address] PT Coag (PPP) [Time] 12.0 second(s) Normal 9.4-12.5 [facility] Comment on above: Result Comment: 15 [...] the same coagulation reagent and instrumentation as [facility]. Currently there are no coagulation studies available worldwide for children to 14 days, and no normal ranges. Performed By: #### 1 [id number] #### [facility] [address] [place] [address] Troponin 0 Hr.on 02-26-2024 Troponin HS 74.90 pg/mL Abnormal 10.10-27.10 [facility] Comment on above: Result Comment: Crit [...] High Sensitivity Troponin I Instructions For Use, [employer], February 2018) Performed By: #### 1 [id number] #### [facility] [address] [place] [address] Troponin 1 Hr.on 02-26-2024 Troponin HS 70.30 pg/mL Abnormal 10.10-27.10 [facility] Comment on above: Order Comment: 1830 Result Comment: Crit ical Result Verified by Previous Result The 95% CI (Confidence Interval) PPV (Positive Predictive Value) for myocardial infarction in females is 38 pg/mL, in males 51 pg/mL. The results should be used in conjunction with clinical conditions of myocardial infarction. (Access High Sensitivity Troponin I Instructions For Use, [employer], February 2018) Performed By: #### 1 [id number] #### [facility] [address] [place] [address] Troponin 3 Hr.on 02-26-2024 Troponin HS 59.70 pg/mL Abnormal 10.10-27.10 [facility] Comment on above: Result Comment: Crit ical Result Verified by Previous Result Critical Result I_TnIHS:59.7 Called to and read back by: AMANDA PRESLEY at: 02/26/2024 21:24:01 by:[email or web address] The 95% CI (Confidence Interval) PPV (Positive Predictive Value) for myocardial infarction in females is 38 pg/mL, in males 51 pg/mL. The results should be used in conjunction with clinical conditions of myocardial infarction. (Access High Sensitivity Troponin I Instructions For Use, [employer], February 2018) Performed By: #### 1 [id number] #### [facility] [address] [place] [address] UA with Cult Rflxon 02-26-20 Type of Urine collection method Random Urine Normal [facility] Comment on above: Performed By: #### 4 [id number] #### [facility] [address] [place] [address] Type of Urine collection method Clean Catch Normal [facility] Comment on above: Performed By: #### 4 [id number] #### [facility] [address] [place] [address] eGFRon 02-26-2024 eGFR 28 mL/min/1.73 m2 Low >=59 [facility] Comment on above: Order Comment: Order added by Discern Expert. Performed By: #### 1 [id number] #### [facility] [address] [place] [address] Ambulatory Visit Summaryon 0 02-10-2024 Ambulatory Visit [...] MARLOW, Yaniv Vela, PATO When: Where: [address] [address]- Medications What How Much When Why Instructions [...] in (more content not included)... Normal [facility] Urology Office/Clinic Noteon 02-10-2024 Urology Office/Clinic Note Urology Office/Clinic Note Chief Complaint follow up HPI Staff Lexi is a 78 y.o. female here for [facility] ER follow up stent placement 01/22/24. S/P [...] female new pt here for f/u to [facility] consult. 1. 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 AP wo con 01/22/24 [facility] - Bilateral hydronephrosis and hydroureter to level [...] We discussed options including referral to the [facility] for consideration of ureterolysis. 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 Ashby. GFR was around 28 at last [facility] (more content not included)... Normal [facility] Comment on above: Result Comment: Elec tronically Signed By: REESE MARLOW, Yaniv Mcarthur.br\\Date and Time Signed: 02/10/24 16:40 EDT Automated basophil %Ordered By: Norberto Pires on 01-25-2024 Basophils/100 WBC (Bld) 0.5 % Normal . [facility] Comment on above: Performed By: #### P T, BMP, PTT, CBC #### [facility] [address] [place] [address] Automated basophil countOrde red By: Norberto Pires on 01-25-2024 Basophils (Bld) [#/Vol] 0.0 10*3/uL Normal 0.0-0.2 [facility] Comment on above: Result Comment: PERF ORMED BY: [place] [address] PATHOLOGIST RECREATION ASSISTANT CORAL BECKETT M.D. Performed By: #### P T, BMP, PTT, CBC #### [facility] [address] [place] [address] Automated blood monocyte cou ntOrdered By: Norberto Pires on 01-25-2024 Monocytes (Bld) [#/Vol] 0.8 10*3/uL Normal 0.0-0.8 [facility] Comment on above: Performed By: #### P T, BMP, PTT, CBC #### [address] Automated eosinophil %Ordere d By: Norberto Pires on 01-25-2024 Eosinophils/100 WBC (Bld) 3.2 % Normal . [facility] Comment on above: Performed By: #### P T, BMP, PTT, CBC #### [address] Automated eosinophil countOr dered By: Norberto Pires on 01-25-2024 Eosinophils (Bld) [#/Vol] 0.3 10*3/uL Normal 0.0-0.45 [facility] Comment on above: Performed By: #### P T, BMP, PTT, CBC #### [address] Automated monocyte %Ordered By: Norberto Pires on 01-25-2024 Monocytes/100 WBC (Bld) 9.1 % Normal . [facility] Comment on above: Performed By: #### P T, BMP, PTT, CBC #### [address] Automated neutrophil %Ordere d By: Norberto Pires on 01-25-2024 Neutrophils/100 WBC (Bld) 64.6 % Normal . [facility] Comment on above: Performed By: #### P T, BMP, PTT, CBC #### [address] Basic Metabolic Panelon 01-11 Creatinine Clr Calc Pharmacy 24.11 Normal [facility] Comment on above: Result Comment: PERF ORMED BY: [place] [address] PATHOLOGIST RECREATION ASSISTANT CORAL BECKETT M.D. Performed By: #### P T, BMP, PTT, CBC #### [place] [address] [place] GFR/1.73 sq M.predicted MDRD (S/P/Bld) [Vol rate/Area] 28.482 mL/min/{1.73_m2} Normal [facility] Comment on above: Performed By: #### P T, BMP, PTT, CBC #### [facility] [address] Calcium [Mass/volume] in Ser um or PlasmaOrdered By: Norberto Pires on 01-25-2024 Calcium [Mass/Vol] 8.6 mg/dL Normal 8.6-10.3 [facility] Comment on above: Performed By: #### P T, BMP, PTT, CBC #### [address] Capillary blood glucose lei urement by glucometer (mass/volume)Ordered By: Norberto Pires on 01-25-2024 Glucose [Mass/Vol] 149 mg/dL Normal [facility] Comment on above: Random Glucose Refer ence Range is dependent on time and content of last meal. Glucose of more than 200 mg/dL in a nonstressed, ambulatory subject supports the diagnosis of Diabetes Mellitus. Result Comment: [place] Glucose Reference Range is dependent on time and content of last meal. Glucose of more than 200 mg/dL in a nonstressed, ambulatory subject supports the diagnosis of Diabetes Mellitus. PERFORMED BY: [place] [address] PATHOLOGIST RECREATION ASSISTANT CORAL BECKETT M.D. Performed By: #### H S TROP, CKMB, CK #### [address] Carbon dioxide, total [Moles /volume] in Serum or PlasmaOrdered By: Norberto Pires on 01-25-2024 CO2 [Moles/Vol] 27.5 mmol/L Normal 21.0-31.0 [facility] Comment on above: Performed By: #### P T, BMP, PTT, CBC #### [address] Chloride [Moles/volume] in [place] or PlasmaOrdered By: Norberto Pires on 01-25-2024 Chloride [Moles/Vol] 106 mmol/L Normal 98-107 [facility] Comment on above: Performed By: #### P T, BMP, PTT, CBC #### [facility] [address] [place] [address] Complete Blood Count Auto Di ffon 01-25-2024 Mean Corpuscular HGB Conc 32.1 g/dL Normal 32.0-35.0 [facility] Comment on above: Performed By: #### P T, BMP, PTT, CBC #### [facility] [address] [place] [address] NRBC% 0.1 /100{WBC} Normal 0-0.5 [facility] Comment on above: Performed By: #### P T, BMP, PTT, CBC #### [facility] [address] [place] [address] Creatinine [Mass/volume] in Serum or PlasmaOrdered By: Norberto Pires on 01-25-2024 Creatinine [Mass/Vol] 1.80 mg/dL High 0.60-1.20 [facility] Comment on above: Performed By: #### P T, BMP, PTT, CBC #### [address] Erythrocyte distribution wid th [Ratio] by Automated countOrdered By: Norberto Pires on 01-25-2024 Erythrocyte distribution width (RBC) [Ratio] 17.3 % High 11.9-15.3 [facility] Comment on above: Performed By: #### P T, BMP, PTT, CBC #### [facility] [address] [place] [address] [place] Erythrocytes [#/volume] in B lood by Automated countOrdered By: Norberto Pires on 01-25-2024 RBC (Bld) [#/Vol] 3.00 10*6/uL Low 3.60-5.00 [facility] Comment on above: Performed By: #### P T, BMP, PTT, CBC #### [address] Glucose Poct Glucometerson 0 01-25-2024 Glucose [Mass/Vol] 79 mg/dL Normal [facility] Comment on above: Result Comment: [place] Glucose Reference Range is dependent on time and content of last meal. Glucose of more than 200 mg/dL in a nonstressed, ambulatory subject supports the diagnosis of Diabetes Mellitus. PERFORMED BY: [place] [address] PATHOLOGIST RECREATION ASSISTANT CORAL BECKETT M.D. Performed By: #### G LUCRISTI #### Point of Care testing , Glucose [Mass/volume] in Ser um or PlasmaOrdered By: Norberto Pires on 01-25-2024 Glucose [Mass/Vol] 75 mg/dL Normal 70-100 [facility] Comment on above: ADA recommended refe rence rangeRandom Glucose Reference Range is dependent on time and content of last meal. Glucose of more than 200 mg/dL in a nonstressed, ambulatory subject supports the diagnosis of Diabetes Mellitus. Result Comment: [place] Glucose Reference Range is dependent on time and content of last meal. Glucose of more than 200 mg/dL in a nonstressed, ambulatory subject supports the diagnosis of Diabetes Mellitus. ADA recommended reference range Performed By: #### P T, BMP, PTT, CBC #### [address] Hematocrit [Volume Fraction] of Blood by Automated countOrdered By: Norberto Pires on 01-25-2024 Hematocrit (Bld) [Volume fraction] 30.5 % Low 34.0-46.4 [facility] Comment on above: Performed By: #### P T, BMP, PTT, CBC #### [address] Hemoglobin [Mass/volume] in BloodOrdered By: Norberto Pires on 01-25-2024 Hemoglobin (Bld) [Mass/Vol] 9.8 g/dL Low 11.8-15.4 [facility] Comment on above: Performed By: #### P T, BMP, PTT, CBC #### [address] Leukocytes [#/volume] correc suzi for nucleated erythrocytes in Blood by Automated counOrdered By: Norberto Pires on 01-25-2024 WBC corrected for nucl RBC Auto (Bld) [#/Vol] 8.3 10*3/uL 3.8-11.6 [facility] Leukocytes [#/volume] in Blo od by Automated countOrdered By: Norberto Pires on 01-25-2024 WBC (Bld) [#/Vol] 8.3 10*3/uL Normal 3.8-11.6 [facility] Comment on above: Performed By: #### P T, BMP, PTT, CBC #### [address] Lymphocytes [#/volume] in Bl ood by Automated countOrdered By: Norberto Pires on 01-25-2024 Lymphocytes (Bld) [#/Vol] 1.9 10*3/uL Normal 1.00-4.8 [facility] Comment on above: Performed By: #### P T, BMP, PTT, CBC #### [address] Lymphocytes/100 leukocytes i n Blood by Automated countOrdered By: Norberto Pires on 01-25-2024 Lymphocytes/100 WBC (Bld) 22.6 % Normal . [facility] Comment on above: Performed By: #### P T, BMP, PTT, CBC #### [place] [address] [place] MCH [Entitic mass] by Automa suzi countOrdered By: Norberto Pires on 01-25-2024 MCH (RBC) [Entitic mass] 32.7 pg Normal 24.7-34.3 [facility] Comment on above: Performed By: #### P T, BMP, PTT, CBC #### [address] MCHC Auto (RBC) [Mass/Vol]Or dered By: Norberto Pires on 01-25-2024 MCHC (RBC) [Mass/Vol] 32.1 g/dL 32.0-35.0 [facility] MCV [Entitic volume] by Auto mated countOrdered By: Norberto Pires on 01-25-2024 MCV (RBC) [Entitic vol] 101.8 fL High 80-100 [facility] Comment on above: Performed By: #### P T, BMP, PTT, CBC #### [facility] [address] [place] [address] Neutrophils [#/volume] in Bl ood by Automated countOrdered By: Norberto Pires on 01-25-2024 Neutrophils (Bld) [#/Vol] 5.4 10*3/uL Normal 1.8-7.7 [facility] Comment on above: Performed By: #### P T, BMP, PTT, CBC #### [facility] [address] [place] [address] No Panel InformationOrdered By: Norberto Pires on 01-25-2024 Estimated GFR (CKD-EPI) 28.482 mL/Min [facility] Creatinine Clearance (Chem 24.11 [facility] Nucleated erythrocytes [Pres ence] in Blood by Automated countOrdered By: Norberto Pires on 01-25-2024 Nucleated RBC Auto Ql (Bld) 0.1 /100{WBC} 0-0.5 [facility] Platelet mean volume [Entiti c volume] in Blood by Automated countOrdered By: Norberto Pires on 01-25-2024 Platelet mean volume (Bld) [Entitic vol] 9.1 fL Normal 6.3-10.7 [facility] Comment on above: Performed By: #### P T, BMP, PTT, CBC #### [facility] [address] [place] [address] Platelets [#/volume] in Bloo d by Automated countOrdered By: Norberto Pires on 07-14-2024 Platelets (Bld) [#/Vol] 202 10*3/uL Normal 150-450 [facility] Comment on above: Performed By: #### P T, BMP, PTT, CBC #### [facility] [address] [place] [address] [place] Potassium [Moles/volume] in Serum or PlasmaOrdered By: Norberto Pires on 01-25-2024 Potassium [Moles/Vol] 3.6 mmol/L Normal 3.5-5.1 [facility] Comment on above: Performed By: #### P T, BMP, PTT, CBC #### [address] Serum or plasma anion gap de terminationOrdered By: Norberto Pires on 01-25-2024 Anion gap [Moles/Vol] 10.1 mmol/L Normal 6.0-15.0 [facility] Comment on above: Performed By: #### P T, BMP, PTT, CBC #### [facility] [address] [place] [address] [place] Sodium [Moles/volume] in Ser um or PlasmaOrdered By: Norberto Pires on 01-25-2024 Sodium [Moles/Vol] 140 mmol/L Normal 136-145 [facility] Comment on above: Performed By: #### P T, BMP, PTT, CBC #### [facility] [address] [place] [address] [place] Urea nitrogen [Mass/volume] in Serum or PlasmaOrdered By: Norberto Pires on 01-25-2024 Urea nitrogen [Mass/Vol] 25 mg/dL Normal 7-25 [facility] Comment on above: Performed By: #### P T, BMP, PTT, CBC #### [facility] [address] [place] [address] [place] Alanine aminotransferase [En zymatic activity/volume] in Serum or PlasmaOrdered By: Norberto Pires on 01-24-2024 ALT [Catalytic activity/Vol] 3 U/L Low 7-52 [facility] Comment on above: Performed By: #### G LULS #### Point of Care testing , Albumin [Mass/volume] in Ser um or Plasma by Bromocresol green (BCG) dye binding methoOrdered By: Norberto Piers on 01-24-2024 Albumin BCG dye [Mass/Vol] 3.2 g/dL Low 3.5-5.7 [facility] Alkaline phosphatase [Enzyma tic activity/volume] in Serum or PlasmaOrdered By: Norberto Pires on 01-24-2024 ALP [Catalytic activity/Vol] 49 U/L Normal 34-104 [facility] Comment on above: Performed By: #### G LULS #### Point of Care testing , Aspartate aminotransferase [ Enzymatic activity/volume] in Serum or PlasmaOrdered By: Norberto Pires on 01-24-2024 AST [Catalytic activity/Vol] 10 U/L Low 13-39 [facility] Comment on above: Performed By: #### G BOLS #### Point of Care testing , Bilirubin.total [Mass/volume ] in Serum or PlasmaOrdered By: Norberto Pires on 01-24-2024 Bilirubin [Mass/Vol] 0.2 mg/dL Low 0.3-1.0 [facility] Comment on above: Performed By: #### G LULS #### Point of Care testing , Complete Blood Count Auto Di ffon 01-24-2024 Basophils (Bld) [#/Vol] 0.1 10*3/uL Normal 0.0-0.2 [facility] Comment on above: Result Comment: PERF ORMED BY: [place] [address] PATHOLOGIST RECREATION ASSISTANT CORAL BECKETT M.D. Performed By: #### H S TROP, CKMB, CK #### [place] [address] [place] Basophils/100 WBC (Bld) 0.7 % Normal . [facility] Comment on above: Performed By: #### H S TROP, CKMB, CK #### [place] [address] [place] Eosinophils (Bld) [#/Vol] 0.3 10*3/uL Normal 0.0-0.45 [facility] Comment on above: Performed By: #### H S TROP CKMB, CK #### [address] Eosinophils/100 WBC (Bld) 3.3 % Normal . [facility] Comment on above: Performed By: #### H S TROP CKMB, CK #### [address] Erythrocyte distribution width (RBC) [Ratio] 17.0 % High 11.9-15.3 [facility] Comment on above: Performed By: #### H S TROP CKMB, CK #### [address] Hematocrit (Bld) [Volume fraction] 31.1 % Low 34.0-46.4 [facility] Comment on above: Performed By: #### H S TROP CKMB, CK #### [address] Hemoglobin (Bld) [Mass/Vol] 10.1 g/dL Low 11.8-15.4 [facility] Comment on above: Performed By: #### H S TROP CKMB, CK #### [address] Lymphocytes (Bld) [#/Vol] 1.5 10*3/uL Normal 1.00-4.8 [facility] Comment on above: Performed By: #### H S TROP CKMB, CK #### [address] Lymphocytes/100 WBC (Bld) 16.3 % Normal . [facility] Comment on above: Performed By: #### H S TROP CKMB, CK #### [address] MCH (RBC) [Entitic mass] 32.7 pg Normal 24.7-34.3 [facility] Comment on above: Performed By: #### H S TROP CKMB, CK #### [address] MCV (RBC) [Entitic vol] 101.2 fL High 80-100 [facility] Comment on above: Performed By: #### H S TROP, CKMB, CK #### [address] Mean Corpuscular HGB Conc 32.3 g/dL Normal 32.0-35.0 [facility] Comment on above: Performed By: #### H S TROP, CKMB, CK #### [address] Monocytes (Bld) [#/Vol] 0.7 10*3/uL Normal 0.0-0.8 [facility] Comment on above: Performed By: #### H S TROP, CKMB, CK #### [address] Monocytes/100 WBC (Bld) 7.7 % Normal . [facility] Comment on above: Performed By: #### H S TROP, CKMB, CK #### [address] Neutrophils (Bld) [#/Vol] 6.8 10*3/uL Normal 1.8-7.7 [facility] Comment on above: Performed By: #### H S TROP, CKMB, CK #### [address] Neutrophils/100 WBC (Bld) 72.0 % Normal . [facility] Comment on above: Performed By: #### H S TROP, CKMB, CK #### [address] NRBC% 0.0 /100{WBC} Normal 0-0.5 [facility] Comment on above: Performed By: #### H S TROP, CKMB, CK #### [address] Platelet mean volume (Bld) [Entitic vol] 9.3 fL Normal 6.3-10.7 [facility] Comment on above: Performed By: #### H S TROP, CKMB, CK #### [facility] [address] Platelets (Bld) [#/Vol] 194 10*3/uL Normal 150-450 [facility] Comment on above: Performed By: #### H S TROP, CKMB, CK #### [facility] [address] RBC (Bld) [#/Vol] 3.08 10*6/uL Low 3.60-5.00 [facility] Comment on above: Performed By: #### H S TROP, CKMB, CK #### [facility] [address] WBC (Bld) [#/Vol] 9.4 10*3/uL Normal 3.8-11.6 [facility] Comment on above: Performed By: #### H S TROP, CKMB, CK #### [address] Comprehensive Metabolic Pane [facility] 01-24-2024 Albumin [Mass/Vol] 3.2 g/dL Low 3.5-5.7 [facility] Comment on above: Performed By: #### G BOLS #### Point of Care testing , Anion gap [Moles/Vol] 10.6 mmol/L Normal 6.0-15.0 [facility] Comment on above: Performed By: #### G BOLS #### Point of Care testing , Calcium [Mass/Vol] 8.4 mg/dL Low 8.6-10.3 [facility] Comment on above: Performed By: #### G LULS #### Point of Care testing , Chloride [Moles/Vol] 108 mmol/L High 98-107 [facility] Comment on above: Performed By: #### G LULS #### Point of Care testing , CO2 [Moles/Vol] 23.7 mmol/L Normal 21.0-31.0 [facility] Comment on above: Performed By: #### G LULS #### Point of Care testing , Creatinine [Mass/Vol] 1.78 mg/dL High 0.60-1.20 [facility] Comment on above: Performed By: #### G LULS #### Point of Care testing , Creatinine Clr Calc Pharmacy 24.14 Normal [facility] Comment on above: Result Comment: PERF ORMED BY: [facility] [address] [place] [address] PATHOLOGIST RECREATION ASSISTANT CORAL BECKETT M.D. Performed By: #### G LULS #### Point of Care testing , GFR/1.73 sq M.predicted MDRD (S/P/Bld) [Vol rate/Area] 28.867 mL/min/{1.73_m2} Normal [facility] Comment on above: Performed By: #### G LULS #### Point of Care testing , Glucose [Mass/Vol] 152 mg/dL High 70-100 [facility] Comment on above: Result Comment: [facility] Glucose Reference Range is dependent on time and content of last meal. Glucose of more than 200 mg/dL in a nonstressed, ambulatory subject supports the diagnosis of Diabetes Mellitus. ADA recommended reference range Performed By: #### G LULS #### Point of Care testing , Potassium [Moles/Vol] 4.3 mmol/L Normal 3.5-5.1 [facility] Comment on above: Performed By: #### G LULS #### Point of Care testing , Sodium [Moles/Vol] 138 mmol/L Normal 136-145 [facility] Comment on above: Performed By: #### G LULS #### Point of Care testing , Urea nitrogen [Mass/Vol] 26 mg/dL High 7-25 [facility] Comment on above: Performed By: #### G LULS #### Point of Care testing , Glucose Poct Glucometerson 0 01-24-2024 Glucose [Mass/Vol] 130 mg/dL Normal [facility] Comment on above: Result Comment: [facility] Glucose Reference Range is dependent on time and content of last meal. Glucose of more than 200 mg/dL in a nonstressed, ambulatory subject supports the diagnosis of Diabetes Mellitus. PERFORMED BY: [address] [place] [address] PATHOLOGIST RECREATION ASSISTANT CORAL BECKETT M.D. Performed By: #### H S TROP, CKMB, CK #### [address] Commemt1 Glu2: Cleaned Meter Normal [facility] Comment on above: Result Comment: PERF ORMED BY: [place] [address] PATHOLOGIST RECREATION ASSISTANT CORAL BECKETT M.D. Performed By: #### H S TROP, CKMB, CK #### [address] Glucose [Mass/Vol] 205 mg/dL Normal [facility] Comment on above: Result Comment: [place] [facility] Glucose Reference Range is dependent on time and content of last meal. Glucose of more than 200 mg/dL in a nonstressed, ambulatory subject supports the diagnosis of Diabetes Mellitus. Performed By: #### H S TROP, CKMB, CK #### [address] Commemt1 Glu2: Cleaned Meter Normal [facility] Comment on above: Result Comment: PERF ORMED BY: [place] [address] PATHOLOGIST RECREATION ASSISTANT CORAL BECKETT M.D. Performed By: #### G LULS #### Point of Care testing , Glucose [Mass/Vol] 233 mg/dL Normal [facility] Comment on above: Result Comment: [place] [facility] Glucose Reference Range is dependent on time and content of last meal. Glucose of more than 200 mg/dL in a nonstressed, ambulatory subject supports the diagnosis of Diabetes Mellitus. Performed By: #### G LULS #### Point of Care testing , Glucose [Mass/Vol] 163 mg/dL Normal [facility] Comment on above: Result Comment: [place] Glucose Reference Range is dependent on time and content of last meal. Glucose of more than 200 mg/dL in a nonstressed, ambulatory subject supports the diagnosis of Diabetes Mellitus. PERFORMED BY: [address] [place] [address] PATHOLOGIST RECREATION ASSISTANT CORAL BECKETT M.D. Performed By: #### G LULS #### Point of Care testing , No Panel InformationOrdered By: Norberto Pires on 01-24-2024 Bedside Glucose Comment Glu2: cleaned meter [facility] Protein [Mass/volume] in Ser um or PlasmaOrdered By: Norberto Pires on 01-24-2024 Protein [Mass/Vol] 6.2 g/dL Low 6.4-8.9 [facility] Comment on above: Performed By: #### G LULS #### Point of Care testing , Serum globulin measurement b y calculation (mass/volume)Ordered By: Norberto Pires on 01-24-2024 Globulin (S) [Mass/Vol] 3.0 g/dL Normal [facility] Comment on above: Performed By: #### G LULS #### Point of Care testing , Serum or plasma albumin/glob ulin mass ratioOrdered By: Norberto Pires on 01-24-2024 Albumin/Globulin [Mass ratio] 1.1 {ratio} Normal [facility] Comment on above: Performed By: #### G LULS #### Point of Care testing , Activated partial thrombopla stin time (aPTT) in platelet poor plasma by coagulation aOrdered By: Norberto Pires on 01-23-2024 aPTT Coag (PPP) [Time] 30.7 s 25.1-36.5 [facility] Comment on above: A hematocrit value g reater than 55% may lead to inaccurate results in coagulation testing. Patients having hematocrit values >55% require a special collection tube for coagulation studies. Please contact the laboratory at [phone] for redraw instructions. Basic Metabolic Panelon 01-11 Anion gap [Moles/Vol] 10.1 mmol/L Normal 6.0-15.0 [facility] Comment on above: Performed By: #### P T, BMP, PTT, CBC #### [facility] [address] [place] [id number] [facility] Calcium [Mass/Vol] 8.8 mg/dL Normal 8.6-10.3 [facility] Comment on above: Performed By: #### P T, BMP, PTT, CBC #### [address] Chloride [Moles/Vol] 108 mmol/L High 98-107 [facility] Comment on above: Performed By: #### P T, BMP, PTT, CBC #### [address] CO2 [Moles/Vol] 27.6 mmol/L Normal 21.0-31.0 [facility] Comment on above: Performed By: #### P T, BMP, PTT, CBC #### [address] Creatinine [Mass/Vol] 1.85 mg/dL High 0.60-1.20 [facility] Comment on above: Performed By: #### P T, BMP, PTT, CBC #### [address] Creatinine Clr Calc Pharmacy 23.08 Normal [facility] Comment on above: Result Comment: PERF ORMED BY: [place] [address] PATHOLOGIST RECREATION ASSISTANT CORAL BECKETT M.D. Performed By: #### P T, BMP, PTT, CBC #### [address] GFR/1.73 sq M.predicted MDRD (S/P/Bld) [Vol rate/Area] 27.561 mL/min/{1.73_m2} Normal [facility] Comment on above: Performed By: #### P T, BMP, PTT, CBC #### [address] Glucose [Mass/Vol] 57 mg/dL Low 70-100 [facility] Comment on above: Result Comment: [place] Glucose Reference Range is dependent on time and content of last meal. Glucose of more than 200 mg/dL in a nonstressed, ambulatory subject supports the diagnosis of Diabetes Mellitus. ADA recommended reference range Performed By: #### P T, BMP, PTT, CBC #### [facility] [address] [place] [address] Potassium [Moles/Vol] 3.7 mmol/L Normal 3.5-5.1 [facility] Comment on above: Performed By: #### P T, BMP, PTT, CBC #### [facility] [address] [place] [address] Sodium [Moles/Vol] 142 mmol/L Normal 136-145 [facility] Comment on above: Performed By: #### P T, BMP, PTT, CBC #### [facility] [address] [place] [address] Urea nitrogen [Mass/Vol] 27 mg/dL High 7-25 [facility] Comment on above: Performed By: #### P T, BMP, PTT, CBC #### [facility] [address] [place] [address] Complete Blood Count Auto Di ffon 01-23-2024 Basophils (Bld) [#/Vol] 0.0 10*3/uL Normal 0.0-0.2 [facility] Comment on above: Result Comment: PERF ORMED BY: [place] [address] PATHOLOGIST RECREATION ASSISTANT CORAL BECKETT M.D. Performed By: #### G LULS #### Point of Care testing , Basophils/100 WBC (Bld) 0.6 % Normal . [facility] Comment on above: Performed By: #### G LULS #### Point of Care testing , Eosinophils (Bld) [#/Vol] 0.3 10*3/uL Normal 0.0-0.45 [facility] Comment on above: Performed By: #### G LULS #### Point of Care testing , Eosinophils/100 WBC (Bld) 3.7 % Normal . [facility] Comment on above: Performed By: #### G LULS #### Point of Care testing , Erythrocyte distribution width (RBC) [Ratio] 17.1 % High 11.9-15.3 [facility] Comment on above: Performed By: #### G LULS #### Point of Care testing , Hematocrit (Bld) [Volume fraction] 32.4 % Low 34.0-46.4 [facility] Comment on above: Performed By: #### G LULS #### Point of Care testing , Hemoglobin (Bld) [Mass/Vol] 10.3 g/dL Low 11.8-15.4 [facility] Comment on above: Performed By: #### G LULS #### Point of Care testing , Lymphocytes (Bld) [#/Vol] 2.0 10*3/uL Normal 1.00-4.8 [facility] Comment on above: Performed By: #### G LULS #### Point of Care testing , Lymphocytes/100 WBC (Bld) 23.9 % Normal . [facility] Comment on above: Performed By: #### G LULS #### Point of Care testing , MCH (RBC) [Entitic mass] 32.0 pg Normal 24.7-34.3 [facility] Comment on above: Performed By: #### G LULS #### Point of Care testing , MCV (RBC) [Entitic vol] 100.1 fL High 80-100 [facility] Comment on above: Performed By: #### G LULS #### Point of Care testing , Mean Corpuscular HGB Conc 32.0 g/dL Normal 32.0-35.0 [facility] Comment on above: Performed By: #### G LULS #### Point of Care testing , Monocytes (Bld) [#/Vol] 0.6 10*3/uL Normal 0.0-0.8 [facility] Comment on above: Performed By: #### G LULS #### Point of Care testing , Monocytes/100 WBC (Bld) 6.8 % Normal . [facility] Comment on above: Performed By: #### G LULS #### Point of Care testing , Neutrophils (Bld) [#/Vol] 5.3 10*3/uL Normal 1.8-7.7 [facility] Comment on above: Performed By: #### G LULS #### Point of Care testing , Neutrophils/100 WBC (Bld) 65.0 % Normal . [facility] Comment on above: Performed By: #### G LULS #### Point of Care testing , NRBC% 0.1 /100{WBC} Normal 0-0.5 [facility] Comment on above: Performed By: #### G LULS #### Point of Care testing , Platelet mean volume (Bld) [Entitic vol] 9.5 fL Normal 6.3-10.7 [facility] Comment on above: Performed By: #### G LULS #### Point of Care testing , Platelets (Bld) [#/Vol] 198 10*3/uL Normal 150-450 [facility] Comment on above: Performed By: #### G LULS #### Point of Care testing , RBC (Bld) [#/Vol] 3.23 10*6/uL Low 3.60-5.00 [facility] Comment on above: Performed By: #### G LULS #### Point of Care testing , WBC (Bld) [#/Vol] 8.2 10*3/uL Normal 3.8-11.6 [facility] Comment on above: Performed By: #### G LULS #### Point of Care testing , Creatine kinase [Enzymatic a ctivity/volume] in Serum or PlasmaOrdered By: Norberto Pires on 01-23-2024 CK [Catalytic activity/Vol] 30 U/L Normal 30-223 [facility] Comment on above: Order Comment: add o n [id number] Performed By: #### H S TROP, CKMB, CK #### [address] Creatine kinase.MB [Mass/vol ume] in Serum or PlasmaOrdered By: Norberto Pires on 01-23-2024 CK.MB [Mass/Vol] 2.3 ng/mL Normal 0.6-6.3 [facility] Comment on above: Order Comment: add o n [id number] Performed By: #### H S TROP, CKMB, CK #### [facility] [address] [place], [place] [id number] [place] Creatinine Kinase MBon 01-22 CKMB Relative Index 7.6 % High 0.00-2.50 [facility] Comment on above: Order Comment: add o n [id number] Performed By: #### H S TROP, CKMB, CK #### [facility] [address] [place] [address] [place] ECG 12 lead ECGon 01-23-2024 ECG 12 lead ECG [facility] [place] [address] Electrocardiograph Report Signed Patient: Lexi Tatum MR#: [id number] : 1945 Acct:[id number] Age/Sex: 78 / F ADM Date: 01/22/24 Loc: Room: [address] [place] [address] Type: ADM IN Attending Dr: Norberto Pires [...] compared with ECG of 23-Jan-2024 08:22, (Unconfirmed) HI interval has increased Confirmed by DESMOND MARLOW [facility] [place] ([id number]) on 01/23/2024 4:34:11 PM Referred By: Electronically Signed By: CHARLOTTE LOGAN MD 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 on 01/23/2024 4:33:34 PM Referred By: Electronically Signed By: CHARLOTTE LOGAN MD [facility] Transcribed By: MUS Signed By Charlotte Logan MD, FACC 01/23/24 1633 Normal [facility] [place] urethrocystogram retroon 01-23-2024 FL urethrocystogram retro [facility] [place] [address] Fluoroscopy Report Signed Patient: Lexi Tatum MR#: [id number] : 1945 Acct:[id number] Age/Sex: 78 / F ADM Date: 01/22/24 Loc: 3T Room: [address] [place] [address] Type: ADM IN Attending Dr: Nroberto Pires DO Copies to: MD Norberto Olmstead DO Ordering Provider: Yaniv Natarajan MD Date of Service: 01/23/24 FL/FL urethrocystogram retro: RETROGRADE [place] urethrocystogram retro 01/23/2024 3:15 PM SIGNS AND SYMPTOMS: 47 [id number] RETROGRADE PROTOCOL: Intraoperative views of the abdomen [...] Rhett Ponce M.D.01/23/2024 7:31 PM Dictation Location: [place] [address] Transcribed By: OMAR 01/23/241930 Dictated By: Rhett Ponce II, MD 01/23/241929 Signed By: 01/23/241930 Normal [facility] Glucose Poct Glucometerson 0 01-23-2024 Glucose [Mass/Vol] 162 mg/dL Normal [facility] Comment on above: Result Comment: [place] om Glucose Reference Range is dependent on time and content of last meal. Glucose of more than 200 mg/dL in a nonstressed, ambulatory subject supports the diagnosis of Diabetes Mellitus. PERFORMED BY: [address] [address] PATHOLOGIST RECREATION ASSISTANT CORAL BECKETT M.D. Performed By: #### G LULS #### Point of Care testing , Commemt1 Glu2: Cleaned Meter Normal [facility] Comment on above: Result Comment: PERF ORMED BY: [address] [address] PATHOLOGIST RECREATION ASSISTANT CORAL BECKETT M.D. Performed By: #### G LULS #### Point of Care testing , Glucose [Mass/Vol] 79 mg/dL Normal [facility] Comment on above: Result Comment: [place] om Glucose Reference Range is dependent on time and content of last meal. Glucose of more than 200 mg/dL in a nonstressed, ambulatory subject supports the diagnosis of Diabetes Mellitus. Performed By: #### G LULS #### Point of Care testing , Commemt1 Glu2: Cleaned Meter Normal [facility] Comment on above: Result Comment: PERF ORMED BY: [place] [address] PATHOLOGIST RECREATION ASSISTANT CORAL BECKETT M.D. Performed By: #### H S TROP, CKMB, CK #### [address] Glucose [Mass/Vol] 97 mg/dL Normal [facility] Comment on above: Result Comment: [place] om Glucose Reference Range is dependent on time and content of last meal. Glucose of more than 200 mg/dL in a nonstressed, ambulatory subject supports the diagnosis of Diabetes Mellitus. Performed By: #### H S TROP, CKMB, CK #### [address] Glucose [Mass/Vol] 75 mg/dL Normal [facility] Comment on above: Result Comment: [place] Glucose Reference Range is dependent on time and content of last meal. Glucose of more than 200 mg/dL in a nonstressed, ambulatory subject supports the diagnosis of Diabetes Mellitus. PERFORMED BY: [place] [address] PATHOLOGIST RECREATION ASSISTANT CORAL BECKETT M.D. Performed By: #### G LULS #### Point of Care testing , INR in Platelet poor plasma by Coagulation assayOrdered By: Norberto Pires on 01-23-2024 INR Coag (PPP) [Relative time] 0.9 {INR} Normal [facility] Comment on above: INR Therapeutic Rang e [...] (Bld) [Time] 30.7 s Normal 25.1-36.5 [facility] Comment on above: Result Comment: A he matocrit value greater than 55% may lead to inaccurate results in coagulation testing. Patients having hematocrit values >55% require a special collection tube for coagulation studies. Please contact the laboratory at [phone] for redraw instructions. PERFORMED BY: [place] [address] PATHOLOGIST RECREATION ASSISTANT CORAL BECKETT M.D. Performed By: #### P T, BMP, PTT, CBC #### [address] Prothrombin time (PT)Ordered By: Norberto Pires on 01-23-2024 PT Coag (PPP) [Time] 11.0 s Normal 9.0-12.9 [facility] Comment on above: A hematocrit value g reater than 55% may lead to inaccurate results in coagulation testing. Patients having hematocrit values >55% require a special collection tube for coagulation studies. Please contact the laboratory at [phone] for redraw instructions. Result Comment: A he matocrit value greater than 55% may lead to inaccurate results in coagulation testing. Patients having hematocrit values >55% require a special collection tube for coagulation studies. Please contact the laboratory at [phone] for redraw instructions. Performed By: #### G LULS #### Point of Care testing , Serum or plasma creatine kin ase MB (CKMB)/total creatine kinase (CK) ratio by calculaOrdered By: Norberto Pires on 01-23-2024 CK.MB Calc [Catalytic fraction] 7.6 % High 0.00-2.50 [facility] Troponin I High Sensitivityo n 01-23-2024 Troponin I High Sensitivity 20.7 pg/mL High 0.0-15.0 [facility] Comment on above: Order Comment: add o n [id number] Result Comment: PERF ORMED BY: [place] [address] PATHOLOGIST RECREATION ASSISTANT CORAL BECKETT M.D. Performed By: #### H S TROP, CKMB, CK #### [address] Troponin I.cardiac [Mass/vol ume] in Serum or Plasma by Detection limit <= 0.01 ng/Ordered By: Norberto Pires on 01-23-2024 Troponin I.cardiac DL <= 0.01 ng/mL [Mass/Vol] 20.7 pg/mL High 0.0-15.0 [facility] Bacteria [Presence] in Urine by AutomatedOrdered By: Christen Oshea on 01-22-2024 Bacteria Auto Ql (U) Rare [HPF] None Seen [facility] Bilirubin Test strip Ql (U)O rdered By: Christen Oshea on 01-22-2024 Bilirubin Ql (U) Negative Negative [facility] CT abdomen pelvis wo conon 0 01-22-2024 CT abdomen pelvis wo con [facility] Main [place] [address] [place] [address] CT Scan Report Signed Patient: Lexi Tatum MR#: [id number] : 1945 Acct:[id number] Age/Sex: 78 / F ADM Date: 01/22/24 Loc: ER Room: Type: [facility] ER Attending Dr: Copies to: Alyssa Ramírez [...] Iraheta Jr., D.O.01/22/2024 4:28 PM Dictation Location: [place] [address] Transcribed By: [facility] 01/22/24 1628 Dictated By: Earnest Iraheta Jr, DO 01/22/24 1625 Signed By: 01/22/24 1628 Normal [facility] Color of Urine by AutoOrdere d By: Christen Oshea on 01-22-2024 Color (U) Colorless Normal Yellow [facility] Comment on above: Order Comment: Name Collection Type:: Clean-Voided Midstream Performed By: #### P T, BMP, PTT, CBC #### [address] Complete Blood Count Auto Di ffon 01-22-2024 Basophils (Bld) [#/Vol] 0.1 10*3/uL Normal 0.0-0.2 [facility] Comment on above: Result Comment: PERF ORMED BY: [place] [address] PATHOLOGIST RECREATION ASSISTANT CORAL BECKETT M.D. Performed By: #### P T, BMP, PTT, CBC #### [address] Basophils/100 WBC (Bld) 1.3 % Normal . [facility] Comment on above: Performed By: #### P T, BMP, PTT, CBC #### [address] Eosinophils (Bld) [#/Vol] 0.3 10*3/uL Normal 0.0-0.45 [facility] Comment on above: Performed By: #### P T, BMP, PTT, CBC #### [address] Eosinophils/100 WBC (Bld) 3.3 % Normal . [facility] Comment on above: Performed By: #### P T, BMP, PTT, CBC #### [address] Erythrocyte distribution width (RBC) [Ratio] 17.4 % High 11.9-15.3 [facility] Comment on above: Performed By: #### P T, BMP, PTT, CBC #### [address] Hematocrit (Bld) [Volume fraction] 36.4 % Normal 34.0-46.4 [facility] Comment on above: Performed By: #### P T, BMP, PTT, CBC #### [address] Hemoglobin (Bld) [Mass/Vol] 11.8 g/dL Normal 11.8-15.4 [facility] Comment on above: Performed By: #### P T, BMP, PTT, CBC #### [address] Lymphocytes (Bld) [#/Vol] 1.9 10*3/uL Normal 1.00-4.8 [facility] Comment on above: Performed By: #### P T, BMP, PTT, CBC #### [address] Lymphocytes/100 WBC (Bld) 21.7 % Normal . [facility] Comment on above: Performed By: #### P T, BMP, PTT, CBC #### [address] MCH (RBC) [Entitic mass] 32.3 pg Normal 24.7-34.3 [facility] Comment on above: Performed By: #### P T, BMP, PTT, CBC #### [address] MCV (RBC) [Entitic vol] 99.7 fL Normal 80-100 [facility] Comment on above: Performed By: #### P T, BMP, PTT, CBC #### [address] Mean Corpuscular HGB Conc 32.4 g/dL Normal 32.0-35.0 [facility] Comment on above: Performed By: #### P T, BMP, PTT, CBC #### [address] Monocytes (Bld) [#/Vol] 0.5 10*3/uL Normal 0.0-0.8 [facility] Comment on above: Performed By: #### P T, BMP, PTT, CBC #### [address] Monocytes/100 WBC (Bld) 19.69 % Normal 0.00-20.00 [facility] Comment on above: Performed By: #### P T, BMP, PTT, CBC #### [address] Monocytes/100 WBC (Bld) 5.2 % Normal . [facility] Comment on above: Performed By: #### P T, BMP, PTT, CBC #### [address] Neutrophils (Bld) [#/Vol] 6.1 10*3/uL Normal 1.8-7.7 [facility] Comment on above: Performed By: #### P T, BMP, PTT, CBC #### [address] Neutrophils/100 WBC (Bld) 68.5 % Normal . [facility] Comment on above: Performed By: #### P T, BMP, PTT, CBC #### [address] NRBC% 0.2 /100{WBC} Normal 0-0.5 [facility] Comment on above: Performed By: #### P T, BMP, PTT, CBC #### [address] Platelet mean volume (Bld) [Entitic vol] 9.3 fL Normal 6.3-10.7 [facility] Comment on above: Performed By: #### P T, BMP, PTT, CBC #### [address] Platelets (Bld) [#/Vol] 206 10*3/uL Normal 150-450 [facility] Comment on above: Performed By: #### P T, BMP, PTT, CBC #### [address] RBC (Bld) [#/Vol] 3.65 10*6/uL Normal 3.60-5.00 [facility] Comment on above: Performed By: #### P T, BMP, PTT, CBC #### [address] WBC (Bld) [#/Vol] 8.9 10*3/uL Normal 3.8-11.6 [facility] Comment on above: Performed By: #### P T, BMP, PTT, CBC #### [address] Comprehensive Metabolic Pane michael 01-22-2024 Albumin [Mass/Vol] 3.7 g/dL Normal 3.5-5.7 [facility] Comment on above: Performed By: #### P T, BMP, PTT, CBC #### [address] Albumin/Globulin [Mass ratio] 1.0 {ratio} Normal [facility] Comment on above: Performed By: #### P T, BMP, PTT, CBC #### [address] ALP [Catalytic activity/Vol] 51 U/L Normal 34-104 [facility] Comment on above: Performed By: #### P T, BMP, PTT, CBC #### [address] ALT [Catalytic activity/Vol] 4 U/L Low 7-52 [facility] Comment on above: Performed By: #### P T, BMP, PTT, CBC #### [address] Anion gap [Moles/Vol] 12.5 mmol/L Normal 6.0-15.0 [facility] Comment on above: Performed By: #### P T, BMP, PTT, CBC #### [address] AST [Catalytic activity/Vol] 9 U/L Low 13-39 [facility] Comment on above: Performed By: #### P T, BMP, PTT, CBC #### [address] Bilirubin [Mass/Vol] 0.3 mg/dL Normal 0.3-1.0 [facility] Comment on above: Performed By: #### P T, BMP, PTT, CBC #### [place] [address] [place] Calcium [Mass/Vol] 9.2 mg/dL Normal 8.6-10.3 [facility] Comment on above: Performed By: #### P T, BMP, PTT, CBC #### [place] [address] [place] Chloride [Moles/Vol] 104 mmol/L Normal 98-107 [facility] Comment on above: Performed By: #### P T, BMP, PTT, CBC #### [place] [address] [place] CO2 [Moles/Vol] 26.7 mmol/L Normal 21.0-31.0 [facility] Comment on above: Performed By: #### P T, BMP, PTT, CBC #### [address] Creatinine [Mass/Vol] 2.02 mg/dL High 0.60-1.20 [facility] Comment on above: Performed By: #### P T, BMP, PTT, CBC #### [address] Creatinine Clr Calc Pharmacy 20.74 Normal [facility] Comment on above: Result Comment: PERF ORMED BY: [place] [address] PATHOLOGIST RECREATION ASSISTANT CORAL BECKETT M.D. Performed By: #### P T, BMP, PTT, CBC #### [address] GFR/1.73 sq M.predicted MDRD (S/P/Bld) [Vol rate/Area] 24.802 mL/min/{1.73_m2} Normal [facility] Comment on above: Performed By: #### P T, BMP, PTT, CBC #### [address] Globulin (S) [Mass/Vol] 3.6 g/dL Normal [facility] Comment on above: Performed By: #### P T, BMP, PTT, CBC #### [address] Glucose [Mass/Vol] 123 mg/dL High 70-100 [facility] Comment on above: Result Comment: [place] om Glucose Reference Range is dependent on time and content of last meal. Glucose of more than 200 mg/dL in a nonstressed, ambulatory subject supports the diagnosis of Diabetes Mellitus. ADA recommended reference range Performed By: #### P T, BMP, PTT, CBC #### [address] Potassium [Moles/Vol] 4.2 mmol/L Normal 3.5-5.1 [facility] Comment on above: Performed By: #### P T, BMP, PTT, CBC #### [address] Protein [Mass/Vol] 7.3 g/dL Normal 6.4-8.9 [facility] Comment on above: Performed By: #### P T, BMP, PTT, CBC #### [address] Sodium [Moles/Vol] 139 mmol/L Normal 136-145 [facility] Comment on above: Performed By: #### P T, BMP, PTT, CBC #### [address] Urea nitrogen [Mass/Vol] 29 mg/dL High 7-25 [facility] Comment on above: Performed By: #### P T, BMP, PTT, CBC #### [address] Dipstick and Microscopicon 0 01-22-2024 Bacteria,Urine Rare Normal None Seen [facility] Comment on above: Order Comment: Name Collection Type:: Clean-Voided Midstream Performed By: #### P T, BMP, PTT, CBC #### [address] Bilirubin,Urine Negative Normal Negative [facility] Comment on above: Order Comment: Name Collection Type:: Clean-Voided Midstream Performed By: #### P T, BMP, PTT, CBC #### [address] Glucose Ql (U) Normal Normal Normal [facility] Comment on above: Order Comment: Name Collection Type:: Clean-Voided Midstream Performed By: #### P T, BMP, PTT, CBC #### [address] Hyaline Casts,Urine 0-8 Normal 0-8 [facility] Comment on above: Order Comment: Name Collection Type:: Clean-Voided Midstream Result Comment: PERF ORMED BY: [place] [address] PATHOLOGIST RECREATION ASSISTANT CORAL BECKETT M.D. Performed By: #### P T, BMP, PTT, CBC #### [address] Nitrite,Urine Negative Normal Negative [facility] Comment on above: Order Comment: Name Collection Type:: Clean-Voided Midstream Performed By: #### P T, BMP, PTT, CBC #### [address] Occult Blood,Urine Negative Normal Negative [facility] Comment on above: Order Comment: Name Collection Type:: Clean-Voided Midstream Result Comment: PERF ORMED BY: [place] [address] PATHOLOGIST RECREATION ASSISTANT CORAL BECKETT M.D. Performed By: #### P T, BMP, PTT, CBC #### [address] RBC,Urine 1-2 Normal 0-4 [facility] Comment on above: Order Comment: Name Collection Type:: Clean-Voided Midstream Performed By: #### P T, BMP, PTT, CBC #### [address] Specificy [place],Urine 1.010 Normal 1.001-1.030 [facility] Comment on above: Order Comment: Name Collection Type:: Clean-Voided Midstream Performed By: #### P T, BMP, PTT, CBC #### [address] Squamous Epithelial Cell,Urine 1-2 Normal 0-2 [facility] Comment on above: Order Comment: Name Collection Type:: Clean-Voided Midstream Performed By: #### P T, BMP, PTT, CBC #### [address] Urobilinogen,Urine Normal Normal Normal [facility] Comment on above: Order Comment: Name Collection Type:: Clean-Voided Midstream Performed By: #### P T, BMP, PTT, CBC #### [address] [place] [address] [place] WBC CLUMP, Urine Occasional High None Seen [facility] Comment on above: Order Comment: Name Collection Type:: Clean-Voided Midstream Performed By: #### P T, BMP, PTT, CBC #### [facility] [address] WBC,Urine 5-9 High 0-4 [facility] Comment on above: Order Comment: Name Collection Type:: Clean-Voided Midstream Performed By: #### P T, BMP, PTT, CBC #### [facility] [address] Epithelial cells.squamous [# /area] in Urine sediment by Automated countOrdered By: Christen Oshea on 01-22-2024 Epithelial cells.squamous Auto (Urine sed) [#/Area] 1-2 [HPF] 0-2 [facility] Erythrocytes [#/area] in Uri ne sediment by Automated countOrdered By: Christen Oshea on 01-22-2024 RBC Auto (Urine sed) [#/Area] 1-2 [HPF] 0-4 [facility] Glucose Poct Glucometerson 0 01-22-2024 Glucose [Mass/Vol] 146 mg/dL Normal [facility] Comment on above: Result Comment: [facility] Glucose Reference Range is dependent on time and content of last meal. Glucose of more than 200 mg/dL in a nonstressed, ambulatory subject supports the diagnosis of Diabetes Mellitus. PERFORMED BY: [place] [address] PATHOLOGIST RECREATION ASSISTANT CORAL BECKETT M.D. Performed By: #### H S TROP, CKMB, CK #### [facility] [address] [place] [address] Glucose [Mass/volume] in Uri ne by Test stripOrdered By: Christen Oshea on 01-22-2024 Glucose Test strip (U) [Mass/Vol] Normal mg/dL Normal [facility] Hemoglobin Test strip Ql (U) Ordered By: Christen Oshea on 01-22-2024 Hemoglobin Ql (U) Negative Negative [facility] Hyaline casts [#/area] in Ur ine sediment by Automated countOrdered By: Christen Oshea on 01-22-2024 Hyaline casts Auto (Urine sed) [#/Area] 0-8 [LPF] 0-8 [facility] Ketones [Presence] in Urine by Test stripOrdered By: Christen Oshea on 01-22-2024 Ketones Ql (U) Negative Normal Negative [facility] Comment on above: Order Comment: Name Collection Type:: Clean-Voided Midstream Performed By: #### P T, BMP, PTT, CBC #### [facility] [address] [place] [address] [place] Leukocyte clumps [Presence] in Urine by AutomatedOrdered By: Christen Oshea on 01-22-2024 Leukocyte clumps Auto Ql (U) Occasional [LPF] High None Seen [facility] Leukocyte esterase [Presence ] in Urine by Test stripOrdered By: Christen Oshea on 01-22-2024 Leukocyte esterase Test strip Ql (U) 1+ High Negative [facility] Comment on above: Order Comment: Name Collection Type:: Clean-Voided Midstream Performed By: #### P T, BMP, PTT, CBC #### [facility] [address] [place] [address] [place] Leukocytes [#/area] in Urine sediment by Automated countOrdered By: Christen Oshea on 01-22-2024 WBC Auto (Urine sed) [#/Area] 5-9 [HPF] High 0-4 [facility] Monocyte distribution width [Entitic volume] in Blood by AutomatedOrdered By: Christen Oshea on 01-22-2024 Monocyte distribution width Auto (Bld) [Entitic vol] 19.69 % 0.00-20.00 [facility] Nitrite Test strip Ql (U)Ord ered By: Christen Oshea on 01-22-2024 Nitrite Ql (U) Negative Negative [facility] Protein [Mass/volume] in Uri ne by Test stripOrdered By: Christen Oshea on 01-22-2024 Protein (U) [Mass/Vol] 50 mg/dL High Negative [facility] Comment on above: Order Comment: Name Collection Type:: Clean-Voided Midstream Performed By: #### P T, BMP, PTT, CBC #### [facility] [address] [place] [address] Specific gravity Test strip (U) [Rel density]Ordered By: Christen Oshea on 01-22-2024 Specific gravity (U) [Rel density] 1.010 1.001-1.030 [facility] Urine Cultureon 01-22-2024 Bacteria identified Cx Nom (U) Urine Culture Results >100,000 col/ml Mixed Bacterial Skin Contaminants 2 Days PERFORMED BY: [place] [address] PATHOLOGIST RECREATION ASSISTANT CORAL BECKETT M.D. Normal [facility] Comment on above: Performed By: #### P T, BMP, PTT, CBC #### [address] Urine appearanceOrdered By: Christen Oshea on 01-22-2024 Appearance (U) Cloudy Critically abnormal Clear [facility] Comment on above: Order Comment: Name Collection Type:: Clean-Voided Midstream Performed By: #### P T, BMP, PTT, CBC #### [facility] [address] [place] [address] Urine culture routineOrdered By: Christen Oshea on 01-22-2024 Bacteria identified Cx Nom (U) [facility] Urobilinogen Test strip (U) [Mass/Vol]Ordered By: Christen Oshea on 01-22-2024 Urobilinogen (U) [Mass/Vol] Normal mg/dL Normal [facility] pH of Urine by Test stripOrd ered By: Christen Oshea on 01-22-2024 pH (U) 7.0 [pH] Normal 5.0-9.0 [facility] Comment on above: Order Comment: Name Collection Type:: Clean-Voided Midstream Performed By: #### P T, BMP, PTT, CBC #### [facility] [address] [place] [address] [facility] Home Health Records [phone] [id number] 5#1.00TIFF Normal [facility] Records [id number] F2#1.00TIFF Normal [facility] Basophils Auto (Bld) [#/Vol] on 12-06-2023 Basophils (Bld) [#/Vol] 0.0 10 3/uL 0.0-0.1 [facility] Basophils/100 WBC Auto (Bld) on 12-06-2023 Basophils/100 WBC (Bld) 0.3 % 0.2-2.0 [facility] Eosinophils/100 WBC Auto (Bl d)on 12-06-2023 Eosinophils/100 WBC (Bld) 2.9 % 0.9-7.0 [facility] Erythrocyte distribution wid th Auto (RBC) [Ratio]on 12-06-2023 Erythrocyte distribution width (RBC) [Ratio] 16.4 % High 11.0-15.0 [facility] Estimated glomerular filtrat ion rate (GFR) non- Americanon 12-06-2023 GFR/1.73 sq M.predicted among non-blacks MDRD (S/P/Bld) [Vol rate/Area] 20 mL/min/{1.73_m2} Low >=60 [facility] Globulin Calc (S) [Mass/Vol] on 12-06-2023 Globulin (S) [Mass/Vol] 4.3 g/dL [facility] Hematocrit Auto (Bld) [Volum e fraction]on 12-06-2023 Hematocrit (Bld) [Volume fraction] 31.8 % Low 36.0-48.0 [facility] Hemoglobin [Mass/volume] in Bloodon 12-06-2023 Hemoglobin (Bld) [Mass/Vol] 9.5 g/dL Low 12.0-16.0 [facility] Laboratory - Chemistry and C hemistry - challengeon 12-06-2023 Albumin [Mass/Vol] 2.8 g/dL Low 3.4-5.0 [facility] ALP [Catalytic activity/Vol] 55 U/L 46-116 [facility] ALT [Catalytic activity/Vol] 11 U/L Low 14-59 [facility] AST [Catalytic activity/Vol] 8 U/L Low 15-37 [facility] Bilirubin [Mass/Vol] 0.4 mg/dL 0.2-1.0 [facility] Calcium [Mass/Vol] 9.0 mg/dL 8.5-10.1 [facility] Chloride [Moles/Vol] 100 mmol/L 98-107 [facility] CO2 [Moles/Vol] 29.7 mmol/L 21.0-32.0 [facility] Cobalamin (Vitamin B12) [Mass/Vol] 380 pg/mL 232-1245 [facility] Comment on above: Performed at: [place] [id number] Director: Mohan aTlbert PhD, Phone: [phone] Creatinine [Mass/Vol] 2.33 mg/dL High 0.55-1.02 [facility] Ferritin [Mass/Vol] 76.0 ng/mL 8.0-252.0 [facility] GFR/1.73 sq M.predicted MDRD (S/P/Bld) [Vol rate/Area] 24 mL/min/{1.73_m2} Low >=60 [facility] Glucose [Mass/Vol] 111 mg/dL High 74-106 [facility] LDH [Catalytic activity/Vol] 149 U/L 81-234 [facility] Potassium [Moles/Vol] 4.4 mmol/L 3.5-5.1 [facility] Protein [Mass/Vol] 7.1 g/dL 6.4-8.2 [facility] Sodium [Moles/Vol] 137 mmol/L 136-145 [facility] Urea nitrogen [Mass/Vol] 45.0 mg/dL High 7.0-18.0 [facility] Urea nitrogen/Creatinine [Mass ratio] 19.3 mg/mg [facility] Laboratory - Hematology and Cell countson 12-06-2023 Immature granulocytes/100 WBC (Bld) 0.3 % 0.0-0.5 [facility] Leukocytes [#/volume] correc suzi for nucleated erythrocytes in Blood by Automated counon 12-06-2023 WBC corrected for nucl RBC Auto (Bld) [#/Vol] 12.3 10 3/uL High 4.0-11.0 [facility] Lymphocytes Auto (Bld) [#/Vo l]on 12-06-2023 Lymphocytes (Bld) [#/Vol] 1.7 10 3/uL 1.2-3.8 [facility] Lymphocytes/100 WBC Auto (Bl d)on 12-06-2023 Lymphocytes/100 WBC (Bld) 13.7 % Low 20.5-60.0 [facility] MCH Auto (RBC) [Entitic mass ]on 12-06-2023 MCH (RBC) [Entitic mass] 31.0 pg 26.7-34.0 [facility] MCHC Auto (RBC) [Mass/Vol]on 12-06-2023 MCHC (RBC) [Mass/Vol] 29.9 g/dL 29.9-35.2 [facility] MCV Auto (RBC) [Entitic vol] on 12-06-2023 MCV (RBC) [Entitic vol] 103.9 fL High 81.0-99.0 [facility] Monocytes Auto (Bld) [#/Vol] on 12-06-2023 Monocytes (Bld) [#/Vol] 0.8 10 3/uL 0.3-0.8 [facility] Monocytes/100 WBC Auto (Bld) on 12-06-2023 Monocytes/100 WBC (Bld) 6.2 % 1.7-12.0 [facility] Neutrophils Auto (Bld) [#/Vo l]on 12-06-2023 Neutrophils (Bld) [#/Vol] 9.4 10 3/uL High 1.4-6.5 [facility] Neutrophils/100 WBC Auto (Bl d)on 12-06-2023 Neutrophils/100 WBC (Bld) 76.6 % High 43.0-75.0 [facility] No Panel Informationon 12-05 Eosinophils # (Auto) 0.4 10 3/uL 0.0-0.7 [facility] Folate 8.2 ng/mL >3.0 [facility] Comment on above: A serum folate oniel ntration of less than 3.1 ng/mL isconsidered to represent clinical deficiency.Performed at: - [facility] [address] [id number] Director: Mohan Talbert PhD, Phone: [phone] Immature Granulocyte # (Auto) 0.04 10 3/uL High 0.00-0.03 [facility] Platelet mean volume Auto (B ld) [Entitic vol]on 12-06-2023 Platelet mean volume (Bld) [Entitic vol] 11.5 fL 9.5-13.5 [facility] Platelets Auto (Bld) [#/Vol] on 12-06-2023 Platelets (Bld) [#/Vol] 209 10 3/uL 150-450 [facility] RBC Auto (Bld) [#/Vol]on RBC (Bld) [#/Vol] 3.06 10 6/uL Low 4.20-5.40 [facility] Reticulocytes/100 RBC Auto ( Bld)on 12-06-2023 Reticulocytes/100 RBC (Bld) 2.59 % 0.60-3.10 [facility] Serum or plasma albumin/glob ulin mass ratioon 12-06-2023 Albumin/Globulin [Mass ratio] 0.7 {ratio} [facility] Serum or plasma anion gap de terminationon 12-06-2023 Anion gap [Moles/Vol] 11.7 mmol/L [facility] A1C with Estimated Average G luon 12-02-2023 Glucose [Mass/Vol] 166 mg/dL Normal [facility] Comment on above: Result Comment: PERF ORMED BY: [place] [address] PATHOLOGIST RECREATION ASSISTANT CORAL BECKETT M.D. Performed By: #### P T, BMP, PTT, CBC #### [address] Albumin Levelon 12-02-2023 Albumin [Mass/Vol] 3.7 g/dL Normal 3.5-5.7 [facility] Comment on above: Performed By: #### P T, BMP, PTT, CBC #### [facility] [address] [place] [id number] [place] Albumin [Mass/volume] in Ser um or Plasma by Bromocresol green (BCG) dye binding methoOrdered By: Da Lozano on 12-02-2023 Albumin BCG dye [Mass/Vol] 3.7 g/dL 3.5-5.7 [facility] Cotinine [Mass/volume] in Se rum or PlasmaOrdered By: Da Lozano on 12-02-2023 Cotinine [Mass/Vol] <1.0 ng/mL . [facility] Comment on above: This test was develo ped and its performance characteristicsdetermined by [employer]. It has not been cleared orapproved by the Food and Drug Administration.Cotinine levels greater than 20.0 are consistent with theuse of tobacco or tobacco cessation products.Performed at: [facility] [address] [id number] Director: Navneet Carcamo MD, Phone: [phone] Glucose mean value [Mass/vol ume] in Blood Estimated from glycated hemoglobinOrdered By: Da Lozano on 12-02-2023 Average glucose Estimated from glycated hemoglobin (Bld) [Mass/Vol] 166 mg/dL [facility] Hemoglobin A1c percentageOrd ered By: Da Lozano on 12-02-2023 HbA1c (Bld) [Mass fraction] 7.4 % High 4.3-5.6 [facility] Comment on above: Increased risk for d iabetes: 5.7 - 6.4diabetes: >6.4glycemic control for adults with diabetes: <7.0 Result Comment: Incr eased risk for diabetes: 5.7 - 6.4 diabetes: >6.4 glycemic control for adults with diabetes: <7.0 Performed By: #### P T, BMP, PTT, CBC #### [facility] [address] [place] [address] [place] Hemoglobin [Mass/volume] in BloodOrdered By: Da Lozano on 12-02-2023 Hemoglobin (Bld) [Mass/Vol] 10.3 g/dL Low 11.8-15.4 [facility] Comment on above: Result Comment: PERF ORMED BY: [address] [place] [id number] PATHOLOGIST RECREATION ASSISTANT CORAL BECKETT M.D. Performed By: #### P T, BMP, PTT, CBC #### [place] [id number] [facility] MRSA Cultureon 12-02-2023 MRSA Culture No MRSA Isolated 2 Days * This is a corrected result. * A prior result that was reported as final has been changed. Added 2 day read result to report. PERFORMED BY: [address] [place] [id number] PATHOLOGIST RECREATION ASSISTANT CORAL BECKETT M.D. Normal [facility] Comment on above: Performed By: #### P T, BMP, PTT, CBC #### [place] [id number] [facility] Nicotine [Mass/volume] in Se rum or PlasmaOrdered By: Da Lozano on 12-02-2023 Nicotine [Mass/Vol] <1.0 ng/mL . [facility] Comment on above: This test was develo ped and its performance characteristicsdetermined by [facility]. It has not been cleared orapproved by the Food and Drug Administration.Nicotine levels greater than 2.0 are consistent with theuse of tobacco or tobacco cessation products. Nicotine/Cotinine Bloodon Cotinine, Blood <1.0 Normal . [facility] Comment on above: Result Comment: This test was developed and its performance characteristics determined by [facility]. It has not been cleared or approved by the Food and Drug Administration. Cotinine levels greater than 20.0 are consistent with the use of tobacco or tobacco cessation products. Performed at: [address] [id number] Sleeve Turner: Navneet Carcamo MD, Phone: [phone] PERFORMED BY: [address] [place] [address] PATHOLOGIST RECREATION ASSISTANT CORAL BECKETT M.D. Performed By: #### P T, BMP, PTT, CBC #### [address] Nicotine, Blood <1.0 Normal . [facility] Comment on above: Result Comment: This test was developed and its performance characteristics determined by [facility]. It has not been cleared or approved by the Food and Drug Administration. Nicotine levels greater than 2.0 are consistent with the use of tobacco or tobacco cessation products. Performed By: #### P T, BMP, PTT, CBC #### [address] Vitamin D 25 Hydroxy Totalon 12-02-2023 Vitamin D 25 Hydroxy Total 91.9 ng/mL Normal 30-100 [facility] Comment on above: Result Comment: ROBERTO MIN D STATUS 25(OH)VITAMIN D RANGE (ng/mL) Deficient <20 Insufficient 20 to <30 Sufficient 30 to 100 Reference: Abhijeet Lao, Stacey CHATMAN, et al. Evaluation,treatment, and prevention of vitamin D deficiency; an Endocrine Society clinical practice guideline. JCEM. 2010; 96(7):1911-30. PERFORMED BY: [place] [address] PATHOLOGIST RECREATION ASSISTANT CORAL BECKETT M.D. Performed By: #### P T, BMP, PTT, CBC #### [address] Vitamin D+Metabolites [Mass/ volume] in Serum or PlasmaOrdered By: Da Lozano on 12-02-2023 Vitamin D+Metabolites [Mass/Vol] 91.9 ng/mL 30-100 [facility] Comment on above: VITAMIN D STATUS 25( [...] (Unsp spec) No MRSA Isolated 2 Days [facility] Glucose mean value [Mass/vol ume] in Blood Estimated from glycated hemoglobinon 11-22-2023 Average glucose Estimated from glycated hemoglobin (Bld) [Mass/Vol] 160 mg/dL [facility] Laboratory - Hematology and Cell countson 11-22-2023 HbA1c (Bld) [Mass fraction] 7.2 % High 4.5-6.2 [facility] Comment on above: ADA RECOMMENDED LIMI T 4.0 - 6.0ADA THERAPEUTIC TARGET < 7.0ACTION SUGGESTED> 7.0 Laboratory - Chemistry and C hemistry - challengeon 10-23-2023 Bilirubin Ql (U) Negative [facility] Glucose (U) [Mass/Vol] Negative [facility] Ketones Ql (U) Negative [facility] pH (U) 5 [pH] [facility] Specific gravity (U) [Rel density] 1.000 [facility] Urobilinogen (U) [Mass/Vol] 0.2 mg/dL [facility] Laboratory - Specimen inform ationon 10-23-2023 Appearance (U) Cloudy [facility] Color (U) Yellow [facility] Laboratory - Urinalysison Leukocyte esterase Test strip Ql (U) +++ [facility] Nitrite Ql (U) Negative [facility] Protein Ql (U) Negative [facility] No Panel Informationon 10-22 Urine Occult Blood Negative [facility] Home Health Recordson 2023 Home Health Records [id number] 3C#1.00TIFF Normal [facility] NM Heart Perfusion W stress and W radionuclide [place] 10-14-2023 Abnormal [facility] Myoview cardiac perfusion stress test. No myocardial ischemia by perfusion imaging. No myocardial infarction by perfusion imaging. Abnormal left ventricular systolic function with mild global hypokinesis. Left ventricular ejection fraction 48 %. No previous studies are available for comparison. Signed by: Charlotte Logan 10/14/2023 4:27 PM Dictation workstation: [id number] Interpreted By: Charlotte Logan and Giannuzzi Michael STUDY: MYOCARDIAL PERFUSION STRESS TEST WITH LEXISCAN Performing facility: [facility], [address] [place] [address], [address], [place] [address] [facility] Provider: Joey Morales MD, [facility] PCP: Dr. Marsha Best Supervising provider: Joey Cobb DO, [facility] INDICATION: CAD; CABG ICM SOB; HISTORY: Gender: F; Age: 78 y/o ; Height: HT 149.9 cm cm; Weight: WT 74.844 kg kg. High Cholesterol; CAD; Diabetes; Previous SC; HTN; SOB; Quit smoking 27 years ago. Cardiac catheterization on 2016. PTCA on 2016. CABG on 2016. COMPARISON: No comparison. ACCESSION NUMBER(S): [id number] ORDERING CLINICIAN: TOM MORALES TECHNIQUE: ONE DAY [...] PERFUSION STRESS TEST WITH LEXISCAN Performing facility: [facility], [address] [place] [address], [address], [address] Provider: Joey Morales MD, [facility] PCP: Dr. Marsha Best Supervising provider: Joey Cobb DO, [facility] INDICATION: CAD; CABG ICM SOB; HISTORY: Gender: F; Age: 78 y/o ; Height: HT 149.9 cm cm; Weight: WT 74.844 kg kg. High Cholesterol; CAD; Diabetes; Previous SC; HTN; SOB; Quit smoking 27 years ago. Cardiac catheterization on 2017. PTCA on 2017. CABG on 2017. COMPARISON: No comparison. ACCESSION NUMBER(S): [id number] ORDERING CLINICIAN: TOM MORALES TECHNIQUE: ONE DAY [...] Charlotte Logan 10/14/2023 4:27 PM Dictation workstation: [id number] [facility] Work Phone: Radiology Study observation (narrative) [facility] Work Phone: NM Heart Perfusion W stress and W radionuclide IVOrdered By: Charlotte Loagn on 10-14-2023 [facility] Work Phone: NUCLEAR STRESS TESTon 2023 NUCLEAR STRESS TEST Interpreted By: Charlotte Logan and Omar Hernandez STUDY: MYOCARDIAL PERFUSION STRESS TEST WITH LEXISCAN Performing facility: [facility], [address] [place] [address], [address] Provider: Joey Morales MD, [facility] PCP: Dr. Marsha Best Supervising provider: Joey Cobb DO, [facility] INDICATION: CAD; CABG ICM SOB; HISTORY: Gender: F; Age: 78 y/o ; Height: HT 149.9 cm cm; Weight: WT 74.844 kg kg. High Cholesterol; CAD; Diabetes; Previous SC; HTN; SOB; Quit smoking 27 years ago. Cardiac catheterization on 2016. PTCA on 2017. CABG on 2017. COMPARISON: No comparison. ACCESSION NUMBER(S): [id number] ORDERING CLINICIAN: TOM MORALES TECHNIQUE: ONE DAY [...] Charlotte Logan 10/14/2023 4:27 PM Dictation workstation: [id number] [facility] Home Health Recordson 2023 Home Health Records [id number] 6F#1.00TIFF Normal [facility] Retail - Clinical Noteon Retail - Clinical Note [id number] 52#1.00TIFF Normal [facility] Home Health Recordson 2023 Home Health Records [id number] 42#1.00TIFF [facility] Home Health Recordson 2023 Home Health Records [id number] 2A#1.00TIFF [facility] Home Health Records [id number] BC#1.00TIFF [facility] Home Health Recordson 2023 Home Health Records [id number] DA#1.00TIFF Normal [facility] Home Health Recordson 2023 Home Health Records [id number] 8E#1.00TIFF Normal [facility] ECG 12-Leadon 09-09-2023 ECG 12-Lead [id number] 37#1.00TIFF Normal [facility] Home Health Recordson 2023 Home Health Records [id number] A0#1.00TIFF [facility] ED Note-Physicianon 09-01-19 ED Note-Physician [id number] 20#1.00TIFF [facility] RAD - MISCon 09-01-2023 RAD - MISC [id number] 4E#1.00TIFF [facility] Ambulatory Visit Summaryon 0 08-21-2023 [...] 3:40 PM EDT With: Maxine Sanchez Where: [facility] [place] Normal [facility] Family Medicine Office/Clini c Noteon 08-21-2023 [...] of clutter to prevent tripping and/or falling. 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 Patient denies any problems with ADL?s [...] monitor f (more content not included)... Normal [facility] Comment on above: Result Comment: Elec tronically Signed By: Maxine Sanchez\\.br\\Date and Time Signed: 08/21/23 09:12 EST\\.br\\Electronically Co-Signed By: Cecilia Lyles\\.br\\Date and Time Co-Signed: 08/21/23 08:13 EST Family [...] EST, Weight Dosing HgbA1c Lab Specimen Collect [id number] 3. Long-term insulin use (Z79.4: long-term (current) use of insulin) insulins changed to [...] virus vaccine, inactivated 07/03/2022 Recorded SARS-CoV-2 (COVID-19) mRNAMUL.ORD![id number] 06/17/2022 Re (more content not included)... Normal [facility] Comment on above: Result Comment: Elec tronically Signed By: Maxine Sanchez\\.br\\Date and Time Signed: 08/21/23 08:02 EST Formson 08-21-2023 Forms [id number] 0F#1.00TIFF Normal [facility] [id number] 08-21-2023 HbA1c (Bld) [Mass fraction] 8.2 % High <=5.9 [facility] Comment on above: Performed By: #### 7 [id number] #### [facility] [address] [place] [address] Patient Educationon 08-21-19 24 Patient Education Caregiving [...] night-lights. ? Place frequently used items in faly-et-pvnfg places. Lower the shelves around your home [...] include working with a physical therapist or horse trainer to improve your strength, balance, and endurance. Where to find more information ? Centers for Disease Control and Prevention, [place]: www.cdc.gov ? National [place] on Aging: www.jasmina.nih.gov Contact a health care [...] health ca (more content not included)... Normal [facility] Ambulatory Visit Summaryon 0 08-20-2023 Ambulatory [...] 3:40 PM EDT With: Maxine Sanchez Where: [facility] Ambulatory Visit Summary LEXI TATUM :1945 [...] for choosing us for your care. Normal [facility] Pre-Visit Planningon 023 Pre-Visit Planning -- From: Bibiana Walter To: Maxine Sanchez; Sent: 05/20/2023 08:13:06 EST Subject: Pre-Visit Planning Due Date/Time: 05/20/2023 08:13:00 EST Caller Name: LEXI TATUM; Caller Number: Giovanni , M [facility] Maxine. During a pre-visit planning chart review, I noted the following documentation in the medical record: Current Problem List: CKD (Chronic kidney disease, unspecified). GFR: =39 on 02/10/2023 and =35 on 01/30/2022. 02/11/2023 Office Visit Note: [facility] Staff- Any previous diagnosis: acute systolic [...] please feel free to contact me at [email or web address] [phone]. Thank you! Bibiana Walter LPN -- From: Maxine Sanchez To: Bibiana Walter; Sent: 05/28/2023 14:06:51 EST Subject: RE: Pre-Visit Planning Caller Name: LEXI TATUM; Caller Number: Giovanni , M chronic kidney disease stage 3, unspecified Normal [address] [place] [address] Pre-Visit Planning -- From: Bibiana Walter To: [...] Type 1 diabetes and hypercholesterolemi a Normal [address] [place] [address] Ambulatory Visit Summaryon 1 07-21-2022 Ambulatory Visit [...] 11:00 AM EST With: Maxine Sanchez Where: [facility] Medicine Office/Clini c Noteon 05-21-2023 Family [...] 3 months. Ordered: HgbA1c Lab Specimen Collect [id number] 2. Long-term insulin use (Z79.4: long-term (current) use of insulin) see above Ordered: HgbA1c Lab Specimen Collect 13748 3. Former smoker (Z87.891: Personal history of [...] virus vaccine, inactivated 07/03/2022 Recorded SARS-CoV-2 (COVID-19) mRNAMUL.ORD![id number] 06/17/2022 Recorded 2023-02-10: [id number] SARS-CoV-2 (COVID-19) mRNA [...] Recorded pneumococcal 13-valent vaccine 10/30/2016 Recorded Normal [facility] Comment on above: Result Comment: Elec tronically Signed By: Maxine Sanchez\\Date and Time Signed: 05/21/23 13:14 EST [id number] 05-21-2023 HbA1c (Bld) [Mass fraction] 8.7 % High <=5.9 [facility] Comment on above: Performed By: #### 7 [id number] #### [facility] [address] [place] [address] Ambulatory Visit Summaryon 0 03-05-2023 Ambulatory Visit [...] Friday 1:00 PM EDT With: Where: [facility] Normal [address] [place] [address]- \\.br\\ Medications\\.br\\ What How Much When Why Instructions\\.br\\ Unchanged allopurinol (allopurinol 300 mg Tab) 1 Tablets By Mouth Every day\\.br\\ Unchanged aspirin (aspirin 81 mg Oral EC Tab) Oral \\.br\\ Unchanged carvedilol (carvedilol 25 mg Tab) Oral \\.br\\ Unchanged cholecalciferol (cholecalciferol 1000 intl units oral capsule) 1 Capsules By Mouth Every day Oral \\.br\\ Unchanged cholecalciferol (cholecalciferol 5000 intl units oral capsule) 1 Capsules By Mouth Every day with food \\.br\\ Unchanged clopidogrel (Plavix 75 mg Tab) Oral \\.br\\ Unchanged furosemide (furosemide 40 mg Tab) 30 tab(s) \\.br\\ Unchanged gabapentin (gabapentin 300 mg Cap) Oral \\.br\\ Unchanged insulin aspart (insulin aspart 100 units/ mL injectable solution) See instructions 20 unit(s) subcutaneous as needed. follow sliding scale \\.br\\ Unchanged insulin glargine (Basaglar KwikPen 100 units/ mL subcutaneous solution) 50 Units Subcutaneous Every day\\.br\\ Unchanged Misc Prescription (Misc DME Prescription) See instructions Type 1 diabetes True Metrix Test Strips Check AC&HS \\.br\\ Unchanged oxybutynin (oxybutynin 10 mg ER Tab) 1 Tablets By Mouth Every day Wellness examination BMI 40.0-44.9, adult Former smoker Type 1 diabetes CKD (chronic kidney disease) Gout Pure hypercholesterolemia Vitamin D deficiency Urinary incontinence\\.br\\ Unchanged potassium chloride (potassium chloride 10 mEq ER Tab) Oral \\.br\\ Unchanged rosuvastatin (rosuvastatin 5 mg Tab) 1 Tablets By Mouth Every day\\.br\\ Allergies\\.br\\ atorvastatin (Myalgia)\\.br\\ pravastatin (Unknown)\\.br\\ Problems\\.br\\ Ongoing - Any problem that you are currently receiving treatment for.\\.br\\ CKD (chronic kidney disease)\\.br\\ Diabetic peripheral neuropathy\\.br\\ Flank pain\\.br\\ Gout\\.br\\ Osteoarthritis\\.br\\ Pure hypercholesterolemia\\ .br\\ Type 1 diabetes\\.br\\ Urinary incontinence\\.br\\ Vitamin D deficiency\\.br\\ Wellness examination\\.br\\ \\.br\\ Dominick [facility] Family Medicine Office/Clini c Noteon [...] continue BS log. may consider referral to surgery teacher at that visit. 2. Flank pain (R10.9: [...] virus vaccine, inactivated 07/03/2022 Recorded SARS-CoV-2 (COVID-19) mRNAMUL.ORD![id number] 06/17/2022 Recorded 2023-02-10: TPV75 SARS-CoV-2 (COVID-19) mRNA [...] pneumococcal 13-valent vaccine 10/30/2016 Recorded Normal [facility] Comment on above: Result Comment: Elec tronically Signed By: Shraddha GAMBLE, Maxine Baez\\.br\\Date and Time Signed: 03/05/23 14:10 EDT CHEMISTRYOrdered [...] 7.6 E9/L Normal 4.0 - 11.0 E9/L [facility] HemeAutoSS Office Visit (Cardiology)on 07-25-2022 Follow-up visit Diagnoses/Problems Assessed S/P CABG x 3 (V45.81) (Z95.1) Ischemic cardiomyopathy (414.8) (I25.5) Hyperlipidemia (272.4) (E78.5) HTN (hypertension) (401.9) (I10) History of angioplasty (V45.89) (Z98.62) History of Dyslipidemia (272.4) (E78.5) CAD, multiple vessel (414.00) (I25.10) History of SC (myocardial infarction) (412) (I25.2) Statin intolerance (995.27) [...] - Retrospective Authorization; Done: 25Jul2022 History of SC (myocardial infarction), HTN (hypertension) Renew: Carvedilol 25 [...] History of angioplasty (V45.89) (Z98.62) History of SC (myocardial infarction) (412) (I25.2) HTN (hypertension) (401.9) [...] breath. Gastrointe (more content not included)... Normal [facility] Tobacco Screening.on 023 Adult depression screening assessment No [facility] DO Work Phone: Fall risk assessment a) No falls within the last year [facility] [facility] DO Work Phone: Tobacco use status CPHS b) No [facility] [facility] DO Work Phone: CBC AUTO DIFFon 01-30-2022 BASO # 0.0 103/ul Normal 0.0-0.1 [facility] Comment on above: Performed By: #### C BC #### [facility] [address] [place] [address] Dr. Yarely Roe Basophils/100 WBC (Bld) 0.4 % Normal 0.2-2.0 [facility] Comment on above: Performed By: #### C BC #### [facility] [address] [place] [address] Dr. Yarely Roe EO # 0.2 103/ul Normal 0.0-0.7 [facility] Comment on above: Performed By: #### C BC #### [facility] [address] [place] [address] Dr. Yarely Roe Eosinophils/100 WBC (Bld) 2.3 % Normal 0.9-7.0 [facility] Comment on above: Performed By: #### C BC #### [facility] [address] [place] [address] Dr. Yarely Roe Erythrocyte distribution width (RBC) [Ratio] 14.8 % Normal 11.0-15.0 [facility] Comment on above: Performed By: #### C BC #### [facility] [address] [place] [address] Dr. Yarely Roe Hematocrit (Bld) [Volume fraction] 42.0 % Normal 36.0-48.0 [facility] Comment on above: Performed By: #### C BC #### [facility] [address] [place] [address] Dr. Yarely Roe Hemoglobin (Bld) [Mass/Vol] 13.7 g/dL Normal 12.0-16.0 [facility] Comment on above: Performed By: #### C BC #### [facility] [address] [place] [address] Dr. Yarely Roe IG # 0.03 10e3/ul Normal 0.00-0.03 [facility] Comment on above: Performed By: #### C BC #### [facility] [address] [place] [address] Dr. Yarely Roe IG % 0.4 % Normal 0.0-0.5 [facility] Comment on above: Performed By: #### C BC #### [facility] [address] [place] [address] Dr. Yarely Roe LYMPH # 1.7 103/ul Normal 1.2-3.8 [facility] Comment on above: Performed By: #### C BC #### [facility] [address] [place] [address] Dr. Yarely Roe Lymphocytes/100 WBC (Bld) 20.7 % Normal 20.5-60.0 [facility] Comment on above: Performed By: #### C BC #### [facility] [address] [place] [address] Dr. Yarely Roe MANUAL DIFF REQ NO Normal [facility] Comment on above: Performed By: #### C BC #### [facility] [address] [place] [address] Dr. Yarely Roe MCH (RBC) [Entitic mass] 31.9 pg Normal 26.7-34.0 [facility] Comment on above: Performed By: #### C BC #### [facility] [address] [place] [address] Dr. Yarely Roe MCHC (RBC) [Mass/Vol] 32.6 g/dL Normal 29.9-35.2 [facility] Comment on above: Performed By: #### C BC #### [facility] [address] [place] [address] Dr. Yarely Roe MCV (RBC) [Entitic vol] 97.7 fL Normal 81.0-99.0 [facility] Comment on above: Performed By: #### C BC #### [facility] [address] [place] [address] Dr. Yarely Roe MONO # 0.5 103/ul Normal 0.3-0.8 [facility] Comment on above: Performed By: #### C BC #### [facility] [address] [place] [address] Dr. Yarely Roe Monocytes/100 WBC (Bld) 5.9 % Normal 1.7-12.0 [facility] Comment on above: Performed By: #### C BC #### [facility] [address] [place] [address] Dr. Yarely Roe NEUT # 5.7 103/ul Normal 1.4-6.5 [facility] Comment on above: Performed By: #### C BC #### [facility] [address] [place] [address] Dr. Yarely Roe Neutrophils/100 WBC (Bld) 70.3 % Normal 43.0-75.0 [facility] Comment on above: Performed By: #### C BC #### [facility] [address] [place] [address] Dr. Yarely Roe Platelet mean volume (Bld) [Entitic vol] 11.0 fL Normal 9.5-13.5 [facility] Comment on above: Performed By: #### C BC #### [facility] [address] [place] [address] Dr. Yarely Roe PLT 196 103/ul Normal 150-450 [facility] Comment on above: Performed By: #### C BC #### [facility] [address] [place] [address] Dr. Yarely Roe RBC 4.30 106/ul Normal 4.20-5.40 [facility] Comment on above: Performed By: #### C BC #### [facility] [address] [place] [address] Dr. Yarely Roe WBC 8.1 103/ul Normal 4.0-11.0 [facility] Comment on above: Performed By: #### C BC #### [facility] [address] [place] [address] Dr. Yarely Roe GLYCOHEMOGLOBIN A1Con 2021 ADA RECOMMENDATION SEE BELOW Normal [facility] Comment on above: Result Comment: ADA RECOMMENDED LIMIT 4.0 - 6.0 ADA THERAPEUTIC TARGET < 7.0 ACTION SUGGESTED > 7.0 Performed By: #### A 1C #### [facility] [address] [place] [address] Dr. Yarely Roe Glucose [Mass/Vol] 223 mg/dL Normal [facility] Comment on above: Performed By: #### A 1C #### [facility] [address] [place] [address] Dr. Yarely Roe HbA1c (Bld) [Mass fraction] 9.4 % Critically high 4.5-6.2 [facility] Comment on above: Performed By: #### A 1C #### [facility] [address] [place] [address] Dr. Yarely Roe PROF CHEM 8 (BAS METB)on Anion gap [Moles/Vol] 13.4 mmol/L Normal [facility] Comment on above: Performed By: #### B MP #### [facility] [address] [place] [address] Dr. Yarely Roe Calcium [Mass/Vol] 9.5 mg/dL Normal 8.5-10.1 [facility] Comment on above: Performed By: #### B MP #### [facility] [address] [place] [address] Dr. Yarely Roe Chloride [Moles/Vol] 101 mmol/L Normal 98-107 [facility] Comment on above: Performed By: #### B MP #### [facility] [address] [place] [address] Dr. Yarely Roe CO2 [Moles/Vol] 28.6 mmol/L Normal 21.0-32.0 [facility] Comment on above: Performed By: #### B MP #### [facility] [address] [place] [address] Dr. Yarely Roe Creatinine [Mass/Vol] 1.46 mg/dL Critically high 0.55-1.02 [facility] Comment on above: Performed By: #### B MP #### [facility] [address] [place] [address] Dr. Yarely Roe EGFR-AF MOLDOVAN 42 mL/min/1.73m2 Critically low >=60 [facility] Comment on above: Performed By: #### B MP #### [facility] [address] [place] [address] Dr. Yarely Roe EGFR-NON AF MOLDOVAN 35 mL/min/1.73m2 Critically low >=60 [facility] Comment on above: Performed By: #### B MP #### [facility] [address] [address] [address] Yarely Roe Glucose [Mass/Vol] 288 mg/dL Critically high 74-106 [facility] Comment on above: Performed By: #### B MP #### [facility] [address] [address] [address] Yarely Roe Potassium [Moles/Vol] 4.0 mmol/L Normal 3.5-5.1 [facility] Comment on above: Performed By: #### B MP #### [facility] [address] [address] [address] Yarely Roe Sodium [Moles/Vol] 139 mmol/L Normal 136-145 [facility] Comment on above: Performed By: #### B MP #### [facility] [address] [address] [address] Yarely Roe Urea nitrogen [Mass/Vol] 27.0 mg/dL Critically high 7.0-18.0 [facility] Comment on above: Performed By: #### B MP #### [facility] [address] [address] [address] Yarely Roe Urea nitrogen/Creatinine [Mass ratio] 18.5 mg/mg Normal [facility] Comment on above: Performed By: #### B MP #### [facility] [address] [address] [address] Yarely Roe PROF CHEM 8 (BAS METB)on Anion gap [Moles/Vol] 11.9 mmol/L Normal [facility] Comment on above: Performed By: #### B MP #### [facility] [address] [address] [address] Yarely Roe Calcium [Mass/Vol] 9.1 mg/dL Normal 8.5-10.1 [facility] Comment on above: Performed By: #### B MP #### [facility] [address] [address] [address] Yarely Roe Chloride [Moles/Vol] 100 mmol/L Normal 98-107 [facility] Comment on above: Performed By: #### B MP #### [facility] [address] [address] [address] Yarely Roe CO2 [Moles/Vol] 30.8 mmol/L Normal 21.0-32.0 [facility] Comment on above: Performed By: #### B MP #### [facility] [address] [address] [address] Yarely Roe Creatinine [Mass/Vol] 1.27 mg/dL Critically high 0.55-1.02 [facility] Comment on above: Performed By: #### B MP #### [facility] [address] [place] [address] Dr. Yarely Roe EGFR-AF MOLDOVAN 50 mL/min/1.73m2 Critically low >=60 [facility] Comment on above: Performed By: #### B MP #### [facility] [address] [address] [address] Yarely Roe EGFR-NON AF MOLDOVAN 41 mL/min/1.73m2 Critically low >=60 [facility] Comment on above: Performed By: #### B MP #### [facility] [address] [place] [address] Dr. Yarely Roe Glucose [Mass/Vol] 166 mg/dL Critically high 74-106 T [facility] Comment on above: Performed By: #### B MP #### [facility] [address] [address] [address] Yarely Roe Potassium [Moles/Vol] 3.7 mmol/L Normal 3.5-5.1 [facility] Comment on above: Performed By: #### B MP #### [facility] [address] [address] [address] Yarely Roe Sodium [Moles/Vol] 139 mmol/L Normal 136-145 [facility] Comment on above: Performed By: #### B MP #### [facility] [address] [address] [address] Yarely Roe Urea nitrogen [Mass/Vol] 20.0 mg/dL Critically high 7.0-18.0 [facility] Comment on above: Performed By: #### B MP #### [facility] [address] [place], [place] [address] Dr. Yarely Roe Urea nitrogen/Creatinine [Mass ratio] 15.7 mg/mg Normal [facility] Comment on above: Performed By: #### B MP #### [facility] [address] [place], [place] [address] Dr. Yarely Roe Office Visit (Cardiology)on 11-02-2021 Follow-up visit Diagnoses/Problems Assessed Hyperlipidemia (272.4) (E78.5) Ischemic cardiomyopathy (414.8) (I25.5) HTN (hypertension) (401.9) (I10) History of SC (myocardial infarction) (412) (I25.2) CAD, multiple vessel [...] Metabolic Panel; Status:Active - Retrospective Authorization; Requested for:[id number]; CAD, multiple vessel, Hyperlipidemia Renew: Rosuvastatin Calcium [...] 2:24:53 PM (more content not included)... Normal [facility] Tobacco Screening.on 022 Adult depression screening assessment No [facility] 250 DO Work Phone: Fall risk assessment a) No falls within the last year [facility] 250 DO Work Phone: Tobacco use status CPHS b) No [facility] 250 DO Work Phone: XR LSPINE MIN [...] Vascular calcifications. Right pelvic vascular stent. IMPRESSION: [id number] degenerative changes with minimal anterolisthesis of L4 and L5 Electronically authenticated by: ALISSA RAMIREZ Date: 2021-10-16 07:05 Normal [facility] CBC AUTO DIFFon 10-15-2021 BASO # 0.0 103/ul Normal 0.0-0.1 [facility] Comment on above: Performed By: #### C BC #### [facility] [address] [place] [address] Dr. Yarely Roe Basophils/100 WBC (Bld) 0.3 % Normal 0.2-2.0 [facility] Comment on above: Performed By: #### C BC #### [facility] [address] [place] [address] Dr. Yarely Roe EO # 0.3 103/ul Normal 0.0-0.7 [facility] Comment on above: Performed By: #### C BC #### [facility] [address] [place] [address] Dr. Yarely Roe Eosinophils/100 WBC (Bld) 3.4 % Normal 0.9-7.0 [facility] Comment on above: Performed By: #### C BC #### [facility] [address] [place] [address] Dr. Yarely Roe Erythrocyte distribution width (RBC) [Ratio] 15.1 % Critically high 11.0-15.0 [facility] Comment on above: Performed By: #### C BC #### [facility] [address] [place] [address] Dr. Yarely Roe Hematocrit (Bld) [Volume fraction] 42.1 % Normal 36.0-48.0 [facility] Comment on above: Performed By: #### C BC #### [facility] [address] [place] [address] Dr. Yarely Roe Hemoglobin (Bld) [Mass/Vol] 13.5 g/dL Normal 12.0-16.0 [facility] Comment on above: Performed By: #### C BC #### [facility] [address] [place] [address] Dr. Yarely Roe IG # 0.04 10e3/ul Critically high 0.00-0.03 [facility] Comment on above: Performed By: #### C BC #### [facility] [address] [place] [address] Dr. Yarely Roe IG % 0.4 % Normal 0.0-0.5 [facility] Comment on above: Performed By: #### C BC #### [facility] [address] [place] [address] Dr. Yarely Roe LYMPH # 2.1 103/ul Normal 1.2-3.8 [facility] Comment on above: Performed By: #### C BC #### [facility] [address] [place] [address] Dr. Yarely Roe Lymphocytes/100 WBC (Bld) 22.9 % Normal 20.5-60.0 [facility] Comment on above: Performed By: #### C BC #### [facility] [address] [place] [address] Dr. Yarely Roe MANUAL DIFF REQ NO Normal [facility] Comment on above: Performed By: #### C BC #### [facility] [address] [place] [address] Dr. Yarely Roe MCH (RBC) [Entitic mass] 31.5 pg Normal 26.7-34.0 [facility] Comment on above: Performed By: #### C BC #### [facility] [address] [place] [address] Dr. Yarely Roe MCHC (RBC) [Mass/Vol] 32.1 g/dL Normal 29.9-35.2 [facility] Comment on above: Performed By: #### C BC #### [facility] [address] [place] [address] Dr. Yarely Roe MCV (RBC) [Entitic vol] 98.1 fL Normal 81.0-99.0 [facility] Comment on above: Performed By: #### C BC #### [facility] [address] [place] [address] Dr. Yarely Roe MONO # 0.6 103/ul Normal 0.3-0.8 [facility] Comment on above: Performed By: #### C BC #### [facility] [address] [place] [address] Dr. Yarely Roe Monocytes/100 WBC (Bld) 6.1 % Normal 1.7-12.0 [facility] Comment on above: Performed By: #### C BC #### [facility] [address] [place] [address] Dr. Yarely Roe NEUT # 6.2 103/ul Normal 1.4-6.5 [facility] Comment on above: Performed By: #### C BC #### [facility] [address] [place] [address] Dr. Yarely Roe Neutrophils/100 WBC (Bld) 66.9 % Normal 43.0-75.0 [facility] Comment on above: Performed By: #### C BC #### [facility] [address] [place] [address] Dr. Yarely Roe Platelet mean volume (Bld) [Entitic vol] 10.9 fL Normal 9.5-13.5 [facility] Comment on above: Performed By: #### C BC #### [facility] [address] [place] [address] Dr. Yarely Roe PLT 220 103/ul Normal 150-450 [facility] Comment on above: Performed By: #### C BC #### [facility] [address] [place] [address] Dr. Yarely Roe RBC 4.29 106/ul Normal 4.20-5.40 [facility] Comment on above: Performed By: #### C BC #### [facility] [address] [place] [address] Dr. Yarely Roe WBC 9.2 103/ul Normal 4.0-11.0 [facility] Comment on above: Performed By: #### C BC #### [facility] [address] [place] [address] Dr. Yarely Roe GLYCOHEMOGLOBIN A1Con 2021 ADA RECOMMENDATION ADA THERAPEUTIC TARGET 6.0 - 7.0 ACTION SUGGESTED > 7.0 Normal [facility] Comment on above: Performed By: #### A 1C #### [facility] [address] [place] [address] Dr. Yarely Roe Glucose [Mass/Vol] 183 mg/dL Normal [facility] Comment on above: Performed By: #### A 1C #### [facility] [address] [place] [address] Dr. Yarely Roe HbA1c (Bld) [Mass fraction] 8.0 % Critically high <=6.0 [facility] Comment on above: Performed By: #### A 1C #### [facility] [address] [place] [address] Dr. Yarely Roe PROF 14(COMP METB)on 022 Albumin [Mass/Vol] 3.4 g/dL Normal 3.4-5.0 [facility] Comment on above: Performed By: #### C MP #### [facility] [address] [place] [address] Dr. Yarely Roe Albumin/Globulin [Mass ratio] 0.8 {ratio} Normal [facility] Comment on above: Performed By: #### C MP #### [facility] [address] [place] [address] Dr. Yarely Roe ALP [Catalytic activity/Vol] 59 U/L Normal 46-116 [facility] Comment on above: Performed By: #### C MP #### [facility] [address] [place] [address] Dr. Yarely Roe ALT [Catalytic activity/Vol] 9 U/L Critically low 14-59 [facility] Comment on above: Performed By: #### C MP #### [facility] [address] [place] [address] Dr. Yarely Roe Anion gap [Moles/Vol] 11.3 mmol/L Normal [facility] Comment on above: Performed By: #### C MP #### [facility] [address] [place] [address] Dr. Yarely Roe AST [Catalytic activity/Vol] 15 U/L Normal 15-37 [facility] Comment on above: Performed By: #### C MP #### [facility] [address] [place] [address] Dr. Yarely Roe Bilirubin [Mass/Vol] 0.3 mg/dL Normal 0.2-1.3 [facility] Comment on above: Performed By: #### C MP #### [facility] [address] [address] [address] Yarely Roe Calcium [Mass/Vol] 9.4 mg/dL Normal 8.5-10.1 [facility] Comment on above: Performed By: #### C MP #### [facility] [address] [address] [address] Yarely Roe Chloride [Moles/Vol] 97 mmol/L Critically low 98-107 [facility] Comment on above: Performed By: #### C MP #### [facility] [address] [address] [address] Yarely Roe CO2 [Moles/Vol] 33.0 mmol/L Critically high 22.0-30.0 [facility] Comment on above: Performed By: #### C MP #### [facility] [address] [address] [address] Yarely Roe Creatinine [Mass/Vol] 1.40 mg/dL Critically high 0.52-1.04 [facility] Comment on above: Performed By: #### C MP #### [facility] [address] [address] [address] Yarely Roe EGFR-AF MOLDOVAN 44 mL/min/1.73m2 Critically low >=60 [facility] Comment on above: Performed By: #### C MP #### [facility] [address] [address] [address] Yarely Roe EGFR-NON AF MOLDOVAN 37 mL/min/1.73m2 Critically low >=60 [facility] Comment on above: Performed By: #### C MP #### [facility] [address] [address] [address] Yarely Roe Globulin (S) [Mass/Vol] 4.3 g/dL Normal [facility] Comment on above: Performed By: #### C MP #### [facility] [address] [address] [address] Yarely Roe Glucose [Mass/Vol] 224 mg/dL Critically high 74-106 T [facility] Comment on above: Performed By: #### C MP #### [facility] [address] [address] [address] Yarely Roe Potassium [Moles/Vol] 3.3 mmol/L Critically low 3.4-5.0 [facility] Comment on above: Performed By: #### C MP #### [facility] [address] [address] [address] Yarely Roe Protein [Mass/Vol] 7.7 g/dL Normal 6.1-8.2 [facility] Comment on above: Performed By: #### C MP #### [facility] [address] [address] [address] Yarely Roe Sodium [Moles/Vol] 138 mmol/L Normal 137-145 [facility] Comment on above: Performed By: #### C MP #### [facility] [address] [address] [address] Yarely Roe Urea nitrogen [Mass/Vol] 27.0 mg/dL Critically high 7.0-18.0 [facility] Comment on above: Performed By: #### C MP #### [facility] [address] [address] [address] Yarely Roe Urea nitrogen/Creatinine [Mass ratio] 19.3 mg/mg Normal [facility] Comment on above: Performed By: #### C MP #### [facility] [address] [address] [address] Yarely Roe [facility] Carotid Artery Dupl ex Ultrasounon 05-08-2020 [facility] Carotid Artery Duplex Ultrasoun [address], [address] [place] [address] Vascular Lab Report Carotid Artery Duplex Ultrasound Patient Name: LEXI CASTILLO Reading Physician: [id number] Charlotte Logan MD, [facility] Study Date: 05/08/2020 Referring Physician: [id number] Tom Morales MD MRN/PID: [id number] PCP: Li Lee Accession/Order#: [id number] CC Report to: Date of : 1945 Technologist: Surekha Hartley RD, RVT Gender: F Technologist 2: Admission Status: Outpatient Location Performed: [facility] Diagnosis/ICD: R09.89-Other specified symptoms and signs involving the circulatory and respiratory systems Indication: Diabetes, Hyperlipidemia, Former Smoker, Vertigo, CAD, CABG, Ischemic Cardiomyopathy, PTCA, SC, Obesity Procedure/CPT: 12650 Cerebrovascular Carotid Duplex scan complete-[id number] CONCLUSIONS: Right Carotid: Findings are consistent with [...] cm/s Right Left ICA/CCA Ratio 2.2 0.9 [id number] Charlotte Logan MD, FACC Final Normal [facility] HEMOGLOBIN A1Con 06-17-2019 HbA1c (Bld) [Mass fraction] 7.5 % Normal [facility] Comment on above: Result Comment: Diag nosis of Diabetes-Adults Non-Diabetic: < or = 5.6% Increased risk for developing diabetes: 5.7-6.4% Diagnostic of diabetes: > or = 6.5% . Monitoring of Diabetes Age (y) Therapeutic Goal (%) Adults: >18 <7.0 Pediatrics: 13-18 <7.5 7-12 <8.0 0- 6 7.5-8.5 [employer]. Diabetes Care 33(S1), Jul 2009. Performed By: #### H BA1E #### [facility] [address] [place] [address] HbA1c (Bld) [Mass fraction] 169 MG/DL Normal [facility] Comment on above: Performed By: #### H BA1E #### [facility] [address] [place] [address] Anthony 06-16-2019 AST [Catalytic activity/Vol] 18 U/L Normal 9 - 39 [facility] Comment on above: Order Comment: Desean nt states she had black coffee this a.m. Performed By: #### A ST #### [address] [address] COMPREHENSIVE PANELon 2018 Albumin [Mass/Vol] 4.1 g/dL Normal 3.4 - 5.0 [facility] Comment on above: Performed By: #### C MP #### [address] [address] ALP [Catalytic activity/Vol] 62 U/L Normal 33 - 136 [facility] Comment on above: Performed By: #### C MP #### [address] [address] ALT [Catalytic activity/Vol] 12 U/L Normal 7 - 45 [facility] Comment on above: Result Comment: Yareli ents treated with Sulfasalazine may generate falsely decreased results for ALT. Performed By: #### C MP #### [address] [address] Anion gap [Moles/Vol] 13 mmol/L Normal 10 - 20 [facility] Comment on above: Performed By: #### C MP #### [address] [address] AST [Catalytic activity/Vol] 16 U/L Normal 9 - 39 [facility] Comment on above: Performed By: #### C MP #### [address] [address] Bilirubin [Mass/Vol] 0.5 mg/dL Normal 0.0 - 1.2 [facility] Comment on above: Performed By: #### C MP #### [address] [address] Calcium [Mass/Vol] 9.8 mg/dL Normal 8.6 - 10.3 [facility] Comment on above: Performed By: #### C MP #### [address] [address] Chloride [Moles/Vol] 103 mmol/L Normal 98 - 107 [facility] Comment on above: Performed By: #### C MP #### [address] [address] Creatinine [Mass/Vol] 1.32 mg/dL High 0.50 - 1.05 [facility] Comment on above: Performed By: #### C MP #### [address] [address] GFR- AM. 47 mL/min/1.73m2 Abnormal >60 [facility] Comment on above: Result Comment: CALC ULATIONS OF ESTIMATED GFR ARE PERFORMED USING THE MDRD STUDY EQUATION FOR THE IDMS-TRACEABLE CREATININE METHODS. CLIN CHEM 2007;53:766-72 Performed By: #### C MP #### [address] [address] GFR-NON AM. 39 mL/min/1.73m2 Abnormal >60 [facility] Comment on above: Performed By: #### C MP #### [address] [address] Glucose [Mass/Vol] 115 mg/dL High 74 - 99 [facility] Comment on above: Performed By: #### C MP #### [address] [address] HCO3 (Bld) [Moles/Vol] 25 mmol/L Normal 21 - 32 [facility] Comment on above: Performed By: #### C MP #### [address] [address] Potassium [Moles/Vol] 5.4 mmol/L High 3.5 - 5.3 [facility] Comment on above: Performed By: #### C MP #### [address] [address] Protein [Mass/Vol] 7.5 g/dL Normal 6.4 - 8.2 [facility] Comment on above: Performed By: #### C MP #### [address] [address] Sodium [Moles/Vol] 136 mmol/L Normal 136 - 145 [facility] Comment on above: Performed By: #### C MP #### [address] [address] Urea nitrogen [Mass/Vol] 40 mg/dL High 6 - 23 [facility] Comment on above: Performed By: #### C MP #### [address] [address] LIPID PANEL (CORONARY RISK 2 )on 06-16-2019 Cholesterol [Mass/Vol] 182 mg/dL Normal 0 - 199 [facility] Comment on above: Order Comment: Desean [...] dosing. Performed By: #### L IPID #### [address] [address] Cholesterol in HDL [Mass/Vol] 39.0 mg/dL Abnormal [facility] Comment on above: Order Comment: Desean hernandez states she had black coffee this a.m. Result Comment: . AGE VERY LOW LOW NORMAL HIGH 0-19 Y < 35 < 40 40-45 ---- 20-24 Y ---- < 40 >45 ---- >24 Y ---- < 40 40-60 >60 . Performed By: #### L IPID #### [address] [address] Cholesterol in LDL [Mass/Vol] 92 mg/dL Normal 0 - 99 [facility] Comment on above: Order Comment: Desean [...] Performed By: #### L IPID #### [address] [address] Cholesterol in VLDL [Mass/Vol] 51 mg/dL High 0 - 40 [facility] Comment on above: Order Comment: Desean hernandez states she had black coffee this a.m. Performed By: #### L IPID #### [address] [address] Cholesterol.total/C holesterol in HDL [Mass ratio] 4.7 {ratio} Normal [facility] Comment on above: Order Comment: Desean hernandez states she had black coffee this a.m. Result Comment: REF VALUES DESIRABLE < 3.4 HIGH RISK > 5.0 Performed By: #### L IPID #### [address] [address] NON-HDL CHOLESTEROL 143 mg/dL Normal [facility] Comment on above: Order Comment: Desean hernandez states she had black coffee this a.m. Result Comment: AGE DESIRABLE BORDERLINE HIGH HIGH VERY HIGH 0-19 Y 0 - 119 120 - 144 >/= 145 >/= 160 20-24 Y 0 - 149 150 - 189 >/= 190 ---- >24 Y 30 MG/DL ABOVE LDL CHOLESTEROL GOAL . Performed By: #### L IPID #### [facility] [address] [place] [address] Triglyceride [Mass/Vol] 255 mg/dL High 0 - 149 [facility] Comment on above: Order Comment: Desean [...] Performed By: #### L IPID #### [address] [address] Vital Signs Date Time Vital Sign Value Performing Clinician Facility 08-11-2024 15:39-0500 Diastolic blood pressure 60 mm[Hg] Angela Braun 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PER[employer] KENNEL Work Phone: [facility] 08-11-2024 15:39-0500 Systolic blood pressure 102 mm[Hg] Angela Braun 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PER[employer] KENNEL Work Phone: [facility] 08-11-2024 15:23-0500 Body height 149.9 cm Angela Braun 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PER[employer] KENNEL Work Phone: [facility] 08-11-2024 15:23-0500 Body mass index (BMI) [Ratio] 33.33 kg/m2 Angela Braun 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PERVIS[employer] KENNEL Work Phone: [facility] 08-11-2024 15:23-0500 Body weight 74.84 kg Angela Braun 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PER[employer] KENNEL Work Phone: [facility] 08-11-2024 15:23-0500 Heart rate 54 /min Angela Braun 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SUPER[employer]OR KENNEL Work Phone: [facility] 08-03-2024 11:09-0500 Body height 149.86 cm Stefan Best MD Work Phone: [facility] 08-03-2024 11:09-0500 Diastolic blood pressure 71 mm[Hg] Stefan Best MD Work Phone: [facility] 08-03-2024 11:09-0500 Heart rate 66 /min Stefan Best MD Work Phone: [facility] 08-03-2024 11:09-0500 Respiratory rate 16 /min Stefan Best MD Work Phone: [facility] 08-03-2024 11:09-0500 SaO2% (BldA) [Mass fraction] 96 % Stefan Best MD Work Phone: [facility] 08-03-2024 11:09-0500 Systolic blood pressure 153 mm[Hg] Stefan Best MD Work Phone: [facility] 07-01-2024 11:08-0500 Body height 149.86 cm Stefan Best MD Work Phone: [facility] 07-01-2024 11:08-0500 Body mass index (BMI) [Ratio] 33.3 kg/m2 Stefan Best MD Work Phone: [facility] 07-01-2024 11:08-0500 Body weight 74.84 kg Stefan Best MD Work Phone: [facility] 07-01-2024 11:08-0500 Diastolic blood pressure 72 mm[Hg] Stefan Best MD Work Phone: [facility] 07-01-2024 11:08-0500 Heart rate 78 /min Stefan Best MD Work Phone: [facility] 07-01-2024 11:08-0500 SaO2% (BldA) [Mass fraction] 96 % Stefan Best MD Work Phone: [facility] 07-01-2024 11:08-0500 Systolic blood pressure 128 mm[Hg] Stefan Best MD Work Phone: [facility] 06-28-2024 10:38-0500 Body height 149.86 cm Stefan Best MD Work Phone: [facility] 06-28-2024 10:38-0500 Body mass index (BMI) [Ratio] 33.3 kg/m2 Stefan Best MD Work Phone: [facility] 06-28-2024 10:38-0500 Body weight 74.84 kg Stefan Best MD Work Phone: [facility] 06-24-2024 10:14-0500 Body height 149.86 cm Stefan Best MD Work Phone: [facility] 06-24-2024 10:14-0500 Body temperature 98.1 [degF] Stefan Best MD Work Phone: [facility] 06-24-2024 10:14-0500 Body weight 74.84 kg Stefan Best MD Work Phone: [facility] 06-24-2024 10:14-0500 Diastolic blood pressure 59 mm[Hg] Stefan Best MD Work Phone: [facility] 06-24-2024 10:14-0500 Heart rate 66 /min Stefan Best MD Work Phone: [facility] 06-24-2024 10:14-0500 Respiratory rate 14 /min Stefan Best MD Work Phone: [facility] 06-24-2024 10:14-0500 SaO2% (BldA) [Mass fraction] 97 % Stefan Best MD Work Phone: [facility] 06-24-2024 10:14-0500 Systolic blood pressure 143 mm[Hg] Stefan Best MD Work Phone: [facility] 2024 10:02-0500 Diastolic blood pressure 68 mm[Hg] Stefan Best MD Work Phone: [facility] 2024 10:02-0500 Heart rate 67 /min Stefan Best MD Work Phone: [facility] 2024 10:02-0500 Respiratory rate 20 /min Stefan Best MD Work Phone: [facility] 2024 10:02-0500 SaO2% (BldA) [Mass fraction] 97 % Stefan Best MD Work Phone: [facility] 2024 10:02-0500 Systolic blood pressure 166 mm[Hg] Stefan Best MD Work Phone: [facility] 2024 09:12-0500 Body temperature 97.2 [degF] Stefan Best MD Work Phone: [facility] 2024 07:28-0500 Body height 149.86 cm Stefan Best MD Work Phone: [facility] 2024 07:28-0500 Body weight 74.84 kg Stefan Best MD Work Phone: [facility] 05-20-2024 10:00-0500 Body height 149.86 cm Stefan Best MD Work Phone: [facility] 05-20-2024 10:00-0500 Body mass index (BMI) [Ratio] 33.3 kg/m2 Stefan Best MD Work Phone: [facility] 05-20-2024 10:00-0500 Body weight 74.84 kg Stefan Best MD Work Phone: [facility] 05-20-2024 10:00-0500 Diastolic blood pressure 82 mm[Hg] Stefan Best MD Work Phone: [facility] 05-20-2024 10:00-0500 Heart rate 65 /min Stefan Best MD Work Phone: [facility] 05-20-2024 10:00-0500 SaO2% (BldA) [Mass fraction] 96 % Stefan Best MD Work Phone: [facility] 05-20-2024 10:00-0500 Systolic blood pressure 132 mm[Hg] Stefan Best MD Work Phone: [facility] 03-22-2024 [id number] Body height 149.86 cm MD Stefan Best Work Phone: [facility] 03-22-2024 14:23-0400 Body mass index (BMI) [Ratio] 33.3 kg/m2 MD Stefan Best Work Phone: [facility] 03-22-2024 14:23-0400 Body temperature 96.7 [degF] MD Stefan Best Work Phone: [facility] 03-22-2024 14:23-0400 Body weight 74.84 kg MD Stefan Best Work Phone: [facility] 03-22-2024 14:23-0400 Diastolic blood pressure 70 mm[Hg] MD Stefan Best Work Phone: [facility] 03-22-2024 14:23-0400 Heart rate 76 /min MD Stefan Bset Work Phone: [facility] 03-22-2024 14:23-0400 Respiratory rate 16 /min MD Stefan Best Work Phone: [facility] 03-22-2024 14:23-0400 SaO2% (BldA) [Mass fraction] 97 % MD Stefan Best Work Phone: [facility] 03-22-2024 14:23-0400 Systolic blood pressure 130 mm[Hg] MD Stefan Best Work Phone: [facility] 03-05-2024 13:28-0400 Body height 149.86 cm MD Stefan Best Work Phone: [facility] 03-05-2024 13:28-0400 Body mass index (BMI) [Ratio] 33.3 kg/m2 MD Stefan Best Work Phone: [facility] 03-05-2024 13:28-0400 Body weight 74.84 kg MD tSefan Best Work Phone: [facility] 03-05-2024 13:28-0400 Diastolic blood pressure 82 mm[Hg] MD Stefan Best Work Phone: [facility] 03-05-2024 13:28-0400 Heart rate 74 /min MD Stefan Best Work Phone: [facility] 03-05-2024 13:28-0400 Systolic blood pressure 147 mm[Hg] MD Stefan Best Work Phone: [facility] 02-29-2024 17:00-0400 Hourly Rounding Mbanefo OJUKWU [facility] 02-29-2024 17:00-0400 Promise to Return Mbanefo OJUKWU [facility] 02-29-2024 16:00-0400 Diastolic blood pressure 60 mm[Hg] Mbanefo OJUKWU [facility] 02-29-2024 16:00-0400 Heart rate 80 /min Mbanefo OJUKWU [facility] 02-29-2024 16:00-0400 Hourly Rounding Mbanefo OJUKWU [facility] 02-29-2024 16:00-0400 Mean blood pressure 78 mm[Hg] Mbanefo OJUKWU [facility] 02-29-2024 16:00-0400 Promise to Return Mbanefo OJUKWU [facility] 02-29-2024 16:00-0400 Respiratory rate 16 /min Mbanefo OJUKWU [facility] 02-29-2024 16:00-0400 SaO2% (BldA) [Mass fraction] 98 % Mbanefo OJUKWU [facility] 02-29-2024 16:00-0400 Systolic blood pressure 114 mm[Hg] Mbanefo OJUKWU [facility] 02-29-2024 15:22-0400 Respiratory rate 18 /min Mbanefo OJUKWU [facility] 02-29-2024 15:22-0400 SaO2% (BldA) [Mass fraction] 92 % Mbanefo OJUKWU [facility] 02-29-2024 15:22-0400 SaO2% (BldA) [Mass fraction] 91 % Mbanefo OJUKWU [facility] 02-29-2024 15:00-0400 Hourly Rounding Mbanefo OJUKWU [facility] 02-29-2024 15:00-0400 Promise to Return Mbanefo OJUKWU [facility] 02-29-2024 11:18-0400 gluc 137 mg/dL Mbanefo OJUKWU [facility] 02-29-2024 10:52-0400 Heart rate 72 /min Mbanefo OJUKWU [facility] 02-29-2024 10:49-0400 Diastolic blood pressure 63 mm[Hg] Mbanefo OJUKWU [facility] 02-29-2024 10:49-0400 Mean blood pressure 80 mm[Hg] Mbanefo OJUKWU [facility] 02-29-2024 10:49-0400 Systolic blood pressure 115 mm[Hg] Mbanefo OJUKWU [facility] 02-29-2024 10:49-0400 Body temperature 98.24 [degF] Mbanefo OJUKWU [facility] 02-29-2024 07:55-0400 gluc 130 mg/dL Mbanefo OJUKWU [facility] 02-29-2024 07:40-0400 Respiratory rate 18 /min Mbanefo OJUKWU [facility] 02-29-2024 07:38-0400 Heart rate 73 /min Mbanefo OJUKWU [facility] 02-29-2024 07:36-0400 Blood Pressure Location Mbanefo OJUKWU [facility] 02-29-2024 07:36-0400 Diastolic blood pressure 54 mm[Hg] Mbanefo OJUKWU [facility] 02-29-2024 07:36-0400 Mean blood pressure 77 mm[Hg] Mbanefo OJUKWU [facility] 02-29-2024 07:36-0400 Systolic blood pressure 123 mm[Hg] Mbanefo OJUKWU [facility] 02-29-2024 07:35-0400 Body temperature 98.06 [degF] Mbanefo OJUKWU [facility] 02-29-2024 03:30-0400 Body temperature 97.34 [degF] Mbanefo OJUKWU [facility] 02-29-2024 03:30-0400 Mean blood pressure 75 mm[Hg] Mbanefo OJUKWU [facility] 02-28-2024 19:00-0400 Body temperature 98.78 [degF] Mbanefo OJUKWU [facility] 02-28-2024 17:47-0400 gluc 118 mg/dL Mbanefo OJUKWU [facility] 02-28-2024 17:16-0400 Mean blood pressure 94 mm[Hg] Mbanefo OJUKWU [facility] 02-28-2024 14:00-0400 Body temperature 100.04 [degF] Mbanefo OJUKWU [facility] 02-28-2024 14:00-0400 Mean blood pressure 97 mm[Hg] Mbanefo OJUKWU [facility] 02-28-2024 10:00-0400 Heart rate 73 /min Mbanefo OJUKWU [facility] 02-27-2024 03:33-0400 Respiratory rate 17 /min Mbanefo OJUKWU [facility] 02-26-2024 23:49-0400 Respiratory rate 16 /min Mbanefo OJUKWU [facility] 02-26-2024 19:00-0400 Respiratory rate 20 /min Mbanefo OJUKWU [facility] 02-26-2024 17:35-0400 gluc Mbanefo OJUKWU [facility] 02-26-2024 17:30-0400 Heart rate 78 /min Allison RIOSU [facility] 02-10-2024 15:35-0400 Blood Pressure Location Yaniv NATARAJAN [facility] 02-10-2024 15:35-0400 Diastolic blood pressure 62 mm[Hg] Yaniv NATARAJAN [facility] 02-10-2024 15:35-0400 Heart rate 78 /min Yaniv NATARAJAN [facility] 02-10-2024 15:35-0400 Respiratory rate 16 /min aYniv NATARAJAN [facility] 02-10-2024 15:35-0400 Systolic blood pressure 144 mm[Hg] Yaniv NATARAJAN [facility] 02-03-2024 15:29-0400 Body height 149.86 cm MD Stefan Best Work Phone: [facility] 02-03-2024 15:29-0400 Body mass index (BMI) [Ratio] 33.3 kg/m2 MD Stefan Best Work Phone: [facility] 02-03-2024 15:29-0400 Body weight 74.84 kg MD Stefan Best Work Phone: [facility] 02-03-2024 15:29-0400 Diastolic blood pressure 75 mm[Hg] MD Stefan Best Work Phone: [facility] 02-03-2024 15:29-0400 Heart rate 72 /min MD Stefan Best Work Phone: [facility] 02-03-2024 15:29-0400 Systolic blood pressure 132 mm[Hg] MD Stefan Best Work Phone: [facility] 01-25-2024 12:00-0400 Body temperature 98.6 [degF] MD Stefan Best Work Phone: [facility] 01-25-2024 12:00-0400 Diastolic blood pressure 70 mm[Hg] MD Stefan Best Work Phone: [facility] 01-25-2024 12:00-0400 Heart rate 80 /min MD Stefan Best Work Phone: [facility] 01-25-2024 12:00-0400 Respiratory rate 18 /min MD Stefan Best Work Phone: [facility] 01-25-2024 12:00-0400 SaO2% (BldA) [Mass fraction] 92 % MD Stefan Best Work Phone: [facility] 01-25-2024 12:00-0400 Systolic blood pressure 135 mm[Hg] MD Stefan Best Work Phone: [facility] 01-25-2024 05:31-0400 Body weight 80 kg MD Stefan Best Work Phone: [facility] 01-24-2024 12:17-0400 Inhaled oxygen flow rate 2 L/min MD Stefan Best Work Phone: [facility] 01-23-2024 16:29-0400 Body height 149.86 cm MD Stefan Best Work Phone: [facility] 01-23-2024 16:29-0400 Body mass index (BMI) [Ratio] 34.5 kg/m2 MD Stefan Best Work Phone: [facility] 01-12-2024 16:11-0400 Body height 149.86 cm MD Stefan Best Work Phone: [facility] 01-12-2024 16:11-0400 Body mass index (BMI) [Ratio] 33.3 kg/m2 MD Stefan Best Work Phone: [facility] 01-12-2024 16:11-0400 Body temperature 96.4 [degF] MD Stefan Best Work Phone: [facility] 01-12-2024 16:11-0400 Body weight 74.84 kg MD Stefan Best Work Phone: [facility] 01-12-2024 16:11-0400 Diastolic blood pressure 80 mm[Hg] MD Stefan Best Work Phone: [facility] 01-12-2024 16:11-0400 Heart rate 82 /min MD Stefan Best Work Phone: [facility] 01-12-2024 16:11-0400 Respiratory rate 16 /min MD Stefan Best Work Phone: [facility] 01-12-2024 16:11-0400 SaO2% (BldA) [Mass fraction] 97 % MD Stefan Best Work Phone: [facility] 01-12-2024 16:11-0400 Systolic blood pressure 149 mm[Hg] MD Stefan Best Work Phone: [facility] 12-11-2023 15:50-0400 Body height 149.86 cm MD Stefan Best Work Phone: [facility] 12-11-2023 15:50-0400 Body mass index (BMI) [Ratio] 33.7 kg/m2 MD Stefan Best Work Phone: [facility] 12-11-2023 15:50-0400 Body weight 75.74 kg MD Stefan Best Work Phone: [facility] 12-11-2023 15:50-0400 Diastolic blood pressure 81 mm[Hg] MD Stefan Best Work Phone: [facility] 12-11-2023 15:50-0400 Heart rate 87 /min MD Stefan Best Work Phone: [facility] 12-11-2023 15:50-0400 Systolic blood pressure 167 mm[Hg] MD Stefan Best Work Phone: [facility] 11-27-2023 13:56-0400 Body height 149.86 cm MD Stefan Best Work Phone: [facility] 11-27-2023 13:56-0400 Body mass index (BMI) [Ratio] 33.9 kg/m2 MD Stefan Best Work Phone: [facility] 11-27-2023 13:56-0400 Body weight 76.2 kg MD Stefan Best Work Phone: [facility] 11-27-2023 13:56-0400 Diastolic blood pressure 81 mm[Hg] MD Stefan Best Work Phone: [facility] 11-27-2023 13:56-0400 Heart rate 76 /min MD Stefan Best Work Phone: [facility] 11-27-2023 13:56-0400 Systolic blood pressure 166 mm[Hg] MD Stefan Best Work Phone: [facility] 10-14-2023 13:33-0400 Diastolic blood pressure 68 mm[Hg] Margie 1 [facility] 10-14-2023 13:33-0400 Heart rate 78 /min Margie 1 [facility] 10-14-2023 13:33-0400 Systolic blood pressure 108 mm[Hg] Margie 1 [facility] 09-17-2023 13:07-0500 Body height 149.9 cm Tom Morales MD Work Phone: [facility] 09-17-2023 13:07-0500 Body mass index (BMI) [Ratio] 33.33 kg/m2 Tom Morales MD Work Phone: [facility] 09-17-2023 13:07-0500 Body weight 74.84 kg Tom Morales MD Work Phone: [facility] 09-17-2023 13:07-0500 Diastolic blood pressure 70 mm[Hg] Tom Morales MD Work Phone: [facility] 09-17-2023 13:07-0500 Heart rate 84 /min Tom Morales MD Work Phone: [facility] 09-17-2023 13:07-0500 Systolic blood pressure 116 mm[Hg] Tom Morales MD Work Phone: [facility] 09-09-2023 15:18-0500 Body height 149.86 cm [facility] 09-09-2023 15:18-0500 Body mass index (BMI) [Ratio] 33.3 kg/m2 [facility] 09-09-2023 15:18-0500 Body weight 74.84 kg [facility] 09-09-2023 15:18-0500 Diastolic blood pressure 74 mm[Hg] [facility] 09-09-2023 15:18-0500 Heart rate 86 /min [facility] 09-09-2023 15:18-0500 Systolic blood pressure 117 mm[Hg] [facility] 08-13-2023 13:00-0500 Body height Da Lozano II Other [employer] [facility] [employer] Other 08-13-2023 13:00-0500 Body height 149.86 cm [facility] 11-12-2022 15:30-0400 Body height Ross Colmenares Other [employer] Other 11-12-2022 15:30-0400 Body mass index (BMI) [Ratio] 33.32 kg/m2 Ross Colmenares Other [employer] Other 11-12-2022 15:30-0400 Body weight 74.84 kg Ross Colmenares Other [employer] Other 07-25-2022 15:55-0500 Body height 149.86 cm Li Lee Work Phone: [facility]Aqck[facility]Hpnppo [place] 250 DO Work Phone: 07-25-2022 15:55-0500 Body mass index (BMI) [Ratio] 34.94 kg/m2 Li Lee Work Phone: [facility]Epxrxknnod-Achthm [place] 250 DO Work Phone: 07-25-2022 15:55-0500 Body surface area Derived from formula 1.73 m2 Li Lee Work Phone: YD-Wgxqxzgxzz-Huqwrb [place] 250 DO Work Phone: 07-25-2022 15:55-0500 Body weight 78.47 kg Li Lee Work Phone: MD-Iawrlazsjp-Rabugq [place] 250 DO Work Phone: 07-25-2022 15:55-0500 Diastolic blood pressure 80 mm[Hg] Li Lee Work Phone: FZ[facility]Ukameskcql-Tusuhm [place] 250 DO Work Phone: 07-25-2022 15:55-0500 Heart rate 66 /min Li Lee Work Phone: ZL-Jygvqwmqjs-Djpwht [place] 250 DO Work Phone: 07-25-2022 15:55-0500 Systolic blood pressure 120 mm[Hg] Li Lee Work Phone: AR-Dvdltndghx-Ihkeqe [place] 250 DO Work Phone: 11-02-2021 13:16-0400 Body height 149.86 cm Li Lee Work Phone: [facility] 250 DO Work Phone: 11-02-2021 13:16-0400 Body mass index (BMI) [Ratio] 34.54 kg/m2 Li Lee Work Phone: [facility] 250 DO Work Phone: 11-02-2021 13:16-0400 Body surface area Derived from formula 1.73 m2 Li Lee Work Phone: [facility] 250 DO Work Phone: 11-02-2021 13:16-0400 Body weight 77.57 kg Li Lee Work Phone: [facility] 250 DO Work Phone: 11-02-2021 13:16-0400 Diastolic blood pressure 80 mm[Hg] Li Lee Work Phone: [facility] 250 DO Work Phone: 11-02-2021 13:16-0400 Heart rate 66 /min Li Lee Work Phone: [facility] 250 DO Work Phone: 11-02-2021 13:16-0400 Systolic blood pressure 130 mm[Hg] Li Lee Work Phone: [facility] 250 DO Work Phone: Encounters Encounter Date Encounter Type Care Provider Facility Start: 08-11-2024 End: 08-11-2024 ambulatory [facility] Start: 08-11-2024 End: 08-11-2024 Office outpatient visit 25 minutes [facility] 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PER[employer] KENNEL Work Phone: [facility] Comment on above: CAD, multiple vessel (Primary Dx); Occlusion and stenosis of right carotid artery; Ischemic cardiomyopathy; Primary hypertension; Mixed hyperlipidemia; Type 2 diabetes mellitus without complication, with long-term current use of insulin (Multi); BMI 33.0-33.9,adult; Chronic kidney disease, stage 3b (Multi); Bruit of right carotid artery; PVD (peripheral vascular disease) ([facility]) Start: 08-03-2024 End: 08-03-2024 ambulatory Stefan Best MD Work Phone: [facility] Work Phone: Start: 08-03-2024 End: 08-03-2024 Patient encounter procedure Stefan Best MD Work Phone: [facility] Work Phone: Start: 07-15-2024 End: 07-15-2024 Patient encounter procedure Stefan Best MD Work Phone: [facility] [place] Work Phone: Start: 07-15-2024 End: 07-15-2024 ambulatory Stefan Best MD Work Phone: [facility] Work Phone: Start: 07-12-2024 End: 07-12-2024 ambulatory Stefan Best MD Work Phone: [facility] Work Phone: Start: 07-12-2024 End: 07-12-2024 Departed Referred Stefan Best MD Work Phone: [facility] [place] Start: 07-01-2024 End: 07-01-2024 Patient encounter procedure Stefan Best MD Work Phone: [facility] Work Phone: Start: 06-28-2024 End: 06-28-2024 Patient encounter procedure Stefan Best MD Work Phone: [facility] Work Phone: Start: 06-28-2024 End: 06-28-2024 ambulatory Stefan Best Facility:[facility] Start: 06-24-2024 End: 06-24-2024 Patient encounter procedure Stefan Best MD Work Phone: [facility] Work Phone: Start: 06-24-2024 End: 06-24-2024 ambulatory Stefan Best Facility:[facility] Start: 2024 End: 2024 Admission to same day surgery center Stefan Best MD Work Phone: [facility] [place] Start: 2024 End: 2024 ambulatory Yaniv Natarajan Facility:[facility] Start: 2024 End: 2024 ambulatory Yaniv NATARAJAN Facility:[id number] Start: 05-25-2024 End: 05-25-2024 Patient encounter procedure Stefan Best MD Work Phone: [facility] Work Phone: Start: 05-25-2024 End: 05-25-2024 ambulatory Stefan Best MD Work Phone: [facility] Work Phone: Start: 05-25-2024 End: 05-25-2024 Departed Referred Stefan Best MD Work Phone: [facility] [place] Work Phone: Start: 05-21-2024 End: 05-21-2024 Patient encounter procedure Stefan Best MD Work Phone: [facility] Work Phone: Start: 05-21-2024 End: 05-21-2024 ambulatory Stefan Best MD Work Phone: [facility] Work Phone: Start: 05-21-2024 Encounter for preprocedural laboratory examination Yaniv Natarajan [facility] Start: 05-20-2024 End: 05-20-2024 Encounter for other preprocedural examination Stefan Best MD Work Phone: [facility] Start: 05-20-2024 End: 05-20-2024 Patient encounter procedure Stefan Best MD Work Phone: [facility] [facility] Work Phone: Start: 05-14-2024 Non-patient / Non-visit Stefan Best MD Work Phone: [facility] Work Phone: Start: 05-14-2024 ambulatory Yaniv NATARAJAN Facility :CD:[id number] Start: 04-07-2024 End: 04-07-2024 Departed Referred MD Stefan Best Work Phone: [facility] [place] Work Phone: Start: 04-07-2024 End: 04-07-2024 ambulatory MD Stefan Best Work Phone: [facility] Work Phone: Start: 04-07-2024 End: 04-07-2024 Patient encounter procedure MD Stefan Best Work Phone: [facility] Work Phone: Start: 03-22-2024 End: 03-22-2024 ambulatory MD Stefan Best Work Phone: [facility] Work Phone: Start: 03-22-2024 End: 03-22-2024 Patient encounter procedure MD Stefan Best Work Phone: [facility] [place] Work Phone: Start: 03-19-2024 Non-patient / Non-visit MD Sulema Best Work Phone: [facility] Work Phone: Start: 03-17-2024 Non-patient / Non-visit MD Sulema Best Work Phone: [facility] Work Phone: Start: 03-05-2024 End: 03-05-2024 ambulatory MD Stefan Best Work Phone: [facility] Work Phone: Start: 03-05-2024 End: 03-05-2024 Patient encounter procedure MD Stefan Best Work Phone: [facility] Work Phone: Start: 02-26-2024 ambulatory Damian RUSS Facility:[facility] Start: 02-26-2024 Emergency department patient visit [facility] Facility:[facility] Start: 02-26-2024 End: 02-29-2024 Evaluation and management of inpatient Allison PARKKWU Facility:[facility] Start: 02-10-2024 End: 02-10-2024 ambulatory Yaniv NATARAJAN Facility:[facility] Start: 02-10-2024 End: 02-10-2024 Patient encounter procedure Yaniv NATARAJAN [facility] Start: 02-03-2024 End: 02-03-2024 ambulatory MD Stefan Best Work Phone: [facility] Work Phone: Start: 02-03-2024 End: 02-03-2024 Patient encounter procedure MD Stefan Best Work Phone: [facility] Work Phone: Start: 01-26-2024 ambulatory DATABASE PROGRAMMER ANALYST Maxine Llanse Facilit y: [place] Start: 01-23-2024 Non-patient / Non-visit MD Sulema Best Work Phone: [facility] Work Phone: Start: 01-23-2024 End: 01-23-2024 ambulatory Yaniv NATARAJAN Facility:CD:[id number] Start: 01-22-2024 End: 01-25-2024 Evaluation and management of inpatient MD Stefan Best Work Phone: [facility] [place] [facility] Work Phone: Start: 01-12-2024 End: 01-12-2024 ambulatory MD Stefan Best Work Phone: [facility] Work Phone: Start: 01-12-2024 End: 01-12-2024 Patient encounter procedure MD Stefan Best Work Phone: [facility] Nephrology Work Phone: Start: 12-11-2023 End: 12-11-2023 ambulatory MD Stefan Best Work Phone: [facility] Work Phone: Start: 12-11-2023 End: 12-11-2023 Patient encounter procedure MD Stefan Best Work Phone: [facility] Work Phone: Start: 12-06-2023 Non-patient / Non-visit MD Sulema Best Work Phone: [facility] Work Phone: Start: 12-02-2023 End: 12-02-2023 Patient encounter procedure MD Stefan Best Work Phone: [facility] Start: 12-02-2023 End: 12-02-2023 ambulatory MD Stefan Best Work Phone: [facility] Work Phone: Start: 11-27-2023 Patient encounter status MD Carlo Best Work Phone: [facility] Start: 11-27-2023 End: 11-27-2023 Patient encounter procedure MD Stefan Best Work Phone: [facility] Work Phone: Start: 11-22-2023 Non-patient / Non-visit MD Sulema Best Work Phone: [facility] Work Phone: Start: 11-19-2023 End: 11-19-2023 ambulatory DATABASE PROGRAMMER ANALYST Maxine Llanes Facility:[facility] Start: 10-23-2023 End: 10-23-2023 ambulatory [facility] Work Phone: Start: 10-23-2023 End: 10-23-2023 Patient encounter procedure [facility] Work Phone: Start: 10-14-2023 End: 10-14-2023 Subsequent hospital visit by physician Margie Juárez Stress Room [facility] Comment on above: CAD, multiple vessel ; S/P CABG x 3; Ischemic cardiomyopathy; Occlusion and stenosis of right carotid artery; Shortness of breath Start: 10-14-2023 End: 10-14-2023 ambulatory [facility] Start: 09-17-2023 ambulatory DATABASE PROGRAMMER ANALYST Maxine L Shraddha Facil ity:[facility] Start: 09-17-2023 End: 09-17-2023 [facility] Work [facility]: Start: 09-17-2023 End: 09-17-2023 Office outpatient visit 25 minutes Tom Morales MD Work Phone: [facility] Comment on above: CAD, multiple vessel (Primary Dx); S/P CABG x 3; History of angioplasty; Primary hypertension; Ischemic cardiomyopathy; Mixed hyperlipidemia; BMI 32.0-32.9,adult; Former smoker; Occlusion and stenosis of right carotid artery; Shortness of breath Start: 09-17-2023 End: 09-17-2023 ambulatory [facility] Start: 09-09-2023 End: 09-09-2023 Patient encounter procedure [facility] Work Phone: Start: 09-08-2023 End: 09-08-2023 ambulatory DATABASE PROGRAMMER ANALYST Maxine L Shraddha Facility: [facility] Start: 08-20-2023 End: 08-20-2023 ambulatory DATABASE PROGRAMMER ANALYST Maxine L Shraddha Facility:[facility] Start: 08-13-2023 End: 08-13-2023 ambulatory Da Lozano II Other [employer] Other Start: 08-13-2023 Office outpatient vi sit 15 minutes Da Lozano II [facility] Start: 08-13-2023 End: 08-13-2023 Patient encounter procedure [facility] Start: 05-21-2023 End: 05-21-2023 ambulatory DATABASE PROGRAMMER ANALYST Maxine L Shraddha Facility:[facility] Start: 04-23-2023 (Procedure) [facility] Start: 04-23-2023 End: 04-23-2023 ambulatory Ross Colmenares Other [employer] Other Start: 04-07-2023 End: 04-07-2023 ambulatory Ross Colmenares Other [employer] Other Start: 04-07-2023 Telephone encounter Ross Colmenares [facility] [place] [facility] Start: 03-27-2023 End: 03-27-2023 ambulatory Da Shawnee II Other [employer] Other Start: 03-27-2023 Office outpatient vi sit 15 minutes Da Blake II [facility] [place] [facility] Start: 03-25-2023 ambulatory DATABASE PROGRAMMER ANALYST Maxine L Shraddha Facil ity:[facility] [place] Start: 03-05-2023 End: 03-05-2023 ambulatory DATABASE PROGRAMMER ANALYST Maxine L Shraddha Facility:[facility] [place] [facility] Start: 02-10-2023 End: 02-10-2023 Lab Drop off Maxine L Shraddha [facility] Start: 12-25-2022 (Procedure) Raine Colmenares [facility] Start: 12-25-2022 End: 12-25-2022 ambulatory Ross Colmenares Other [employer] Other Start: 11-12-2022 End: 11-12-2022 ambulatory Ross Colmenares Other [employer] Other Start: 11-12-2022 Office outpatient ne w 45 minutes Ross Colmenares [facility] Start: 11-11-2022 End: 11-11-2022 ambulatory MD Li Lee Work Phone: [facility] Work Phone: Start: 11-11-2022 End: 11-11-2022 Patient encounter procedure MD Li Lee Work Phone: [facility] [place] [facility] Start: 10-09-2022 Rx Renewal Li Lee Work Phone: [facility] 250 DO Work Phone: Start: 07-25-2022 Office outpatient vi sit 25 minutes Li Lee Work Phone: [facility] 250 DO Work Phone: Start: 07-25-2022 ambulatory Tom Morales II Facility: Start: 07-10-2022 Rx Renewal Li Lee Work Phone: [facility] 250 DO Work Phone: Start: 01-30-2022 End: 01-31-[address] LI LEE Facility:[facility]1 Start: 12-19-2021 Encounter for genera l adult medical examination without abnormal findings DR TOM MORALES [facility] Start: 12-13-2021 End: 12-14-[address] LI LEE Facility:[facility] Start: 12-13-2021 End: 12-14-2021 Encounter for general adult medical examination without abnormal findings DR LI LEE Facility:[facility] Start: 11-02-2021 Office outpatient vi sit 25 minutes Li Lee Work Phone: [facility] 250 DO Work Phone: Start: 11-02-[address] LI LEE Facilit y:[facility]1 Start: 10-18-2021 End: 01-19-[address] LI LEE Facility:[facility] Start: 10-15-2021 End: 10-16-[address] LI LEE Facility:[facility] Start: 10-11-2021 Rx Renewal Li Lee Work Phone: [facility] 250 DO Work Phone: Start: 09-10-2021 Rx Renewal Li Lee Work Phone: [facility] 250 DO Work Phone: Start: 08-03-2021 AUDIT Li Lee Work Phone: [facility] 250 DO Work Phone: Start: 11-20-2017 Ambulatory BLAKE SIMEONNUS Facility :[id number] Start: 09-04-2017 Ambulatory BLAKE KIRNUS Facility :[id number] Start: 04-07-2017 End: 04-08-2017 Ambulatory DEFAULT PHYSICIAN Facility:[facility] Patient encounter status Li white [facility] Work Phone: Procedures Date Procedure Procedure Detail Performing Clinician Start: 07-15-2024 Urine culture Stefan acevedo MD Work Phone: Start: 06-28-2024 Plain X-ray of left hip Stefan Best MD Work Phone: Start: 06-24-2024 Urine culture Stefan acevedo MD Work Phone: Start: 06-24-2024 Antibody screen Da Lozano II Comment on above: Order Comment: Date of Surgery: [id number] Result Comment: PERF ORMED BY: [facility] [address] [place] [address] PATHOLOGIST RECREATION ASSISTANT RADHA DURAN M.D. Start: 2024 Cystoscopy Stefan [...] surgery Li hartley Work Phone: Cataract surgery [employer] section Li hartley Work Phone: Comment on above: x3; section [employer] Comment on above: Outside Source Comme nt: Comment on above: x3; History of coronary artery bypass grafting S/P CABG x 3 Li Lee Work Phone: History of coronary artery bypass grafting [employer] History of coronary artery bypass grafting S/P [...] procedure 08/11/2025 11:10 AM EST Office Visit [facility] [address] [place] [address] Tom Cobb DO [address] [place] [address] [facility] Start: 07-25-2025 End: 07-25-2025 Patient encounter procedure 07/25/2025 9:45 AM EST Appointment [facility] [address] [place] [address] [facility] Start: 08-11-2024 End: 08-11-2026 US.doppler Carotid arteries - bilateral Vascular US Carotid Artery Duplex Bilateral Vascular Ultrasound Routine Bruit of right carotid artery Expected: 08/11/2024 (Approximate), Expires: 08/11/2026 [facility] Service Area Work Phone: Comment on above: Expected: 08/11/2024 (Approximate), Expires: 08/11/2026 Start: 07-15-2024 Bacteria identified in Urine by Culture Urine Culture [facility] Start: 07-15-2024 Urine culture [facility] Start: 07-12-2024 Total replacement of left hip joint OR Total Hip Arthro Anterior Approach (Left) [facility] Start: 06-09-2024 End: 06-09-2024 Patient encounter procedure 06/09/2024 11:30 AM EST Office Visit [facility] [address] [place] [address] Angela Braun, OUTDOOR 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-SUPERVISOR KENNEL [address] [facility] [address] [place] [address] [facility] Start: 2024 End: 2024 [facility] Start: 05-25-2024 Bacteria identified in Urine by Culture Urine Culture [facility] Start: 05-25-2024 Urine culture [facility] Start: 04-07-2024 Bacteria identified in Urine by Culture [facility] Start: 03-14-2024 COVID-19 Vaccine ( season) COVID-19 Vaccine ( season) [facility] Start: 03-14-2024 Influenza vaccination [facility] Start: 01-27-2024 [facility] Start: 01-26-2024 [facility] Start: 01-25-2024 [facility] Start: 01-25-2024 [facility] Start: 01-22-2024 Hospital admission [facility] Start: 01-22-2024 Referral to document imaging manager [facility] Start: 01-22-2024 Referral to urologist Luis [facility] Start: 01-22-2024 [facility] Start: 01-22-2024 Dilation of Bilatera l Ureters, Via Natural or Artificial Opening Endoscopic Dilation of Bilateral Ureters, Via Natural or Artificial Opening Endoscopic [facility] Start: 01-22-2024 Fluoroscopy of Kidne ys, Ureters and Bladder using Low Osmolar Contrast Fluoroscopy of Kidneys, Ureters and Bladder using Low Osmolar Contrast [facility] Start: 12-12-2023 Patient referral [facility] Work Phone: Start: 12-02-2023 MRSA Culture MRSA Culture [facility] Start: 09-17-2023 End: 09-16-2025 NM Heart Perfusion W stress and W radionuclide IV Nuclear Stress Test Cardiac Nuclear Medicine Routine CAD, multiple vessel S/P CABG x 3 Ischemic cardiomyopathy Occlusion and stenosis of right carotid artery Shortness of breath Expected: 09/17/2023 (Approximate), Expires: 09/16/2025 [facility] Service Area Work Phone: Comment on above: Expected: 09/17/2023 (Approximate), Expires: 09/16/2025 Start: 07-23-2023 FUV, Provider: Tom Morales, Status: Pen, Time: 3:40 PM FUV, Provider: Tom Morales, Status: Pen, Time: 3:40 PM [facility] [place] 250 DO Work Phone: Start: 07-19-2023 Glaucoma screening Diabetes: R etinopathy Screening [facility] Start: 03-14-2023 COVID-19 Vaccine () COVID-19 Vaccine () [facility] Start: 03-14-2023 Influenza vaccination Influenza Vacc ine (#1) [facility] Start: 11-11-2022 X-ray of lumbar spin e, four views XR lumbar spine AP/LAT/FLX/EXT [facility] Start: 11-11-2022 Plain X-ray of left hip XR hip LT min 2V(w/wo pelvis)* [facility] Start: 11-11-2022 XR Hip - left 2 Views F [facility] Start: 10-16-2022 Medicare Annual Well ness Visit Medicare Annual Wellness Visit (AWV) [facility] Start: 07-25-2022 FUV, Provider: Tom Morales, Status: Pen, Time: 3:30 PM FUV, Provider: Tom Morales, Status: Pen, Time: 3:30 PM [facility] 250 DO Work Phone: Start: 04-19-2022 FUV, Provider: Tom Morales, Status: Pen, Time: 3:20 PM FUV, Provider: Tom Morales, Status: Pen, Time: 3:20 PM [facility] 250 DO Work Phone: Start: 11-02-2021 FUV, Provider: Tom Morales, Status: Pen, Time: 1:15 PM FUV, Provider: Tom Morales, Status: Pen, Time: 1:15 PM [facility] 250 DO Work Phone: Start: 06-16-2020 Lipid panel Lipid Panel [facility] Start: 2020 RSV High Risk: (Elde rly (60+) or Population) (1 - 1-dose 75+ series) RSV High Risk: (Elderly (60+) or Population) (1 - 1-dose 75+ series) [facility] Start: 09-15-2019 Hemoglobin A1c measurement Diabetes: Hemoglobin A1C [facility] Start: 1995 Zoster Vaccines (1 of 2) Zoster Vacc alli (1 of 2) [facility] Start: 1967 DTaP/Tdap/Td Vaccine s (1 - Tdap) DTaP/Tdap/Td Vaccines (1 - Tdap) [facility] Start: 1964 Urine screening for protein Diabetes: Urine Protein Screening [facility] Start: 1963 Hepatitis C screening Hepatitis C [facility] Start: 1955 Diabetic foot examination Diabetes: Foot Exam [facility] Start: 1945 Medicare Annual Well ness Visit Medicare Annual Wellness Visit (AWV) [facility] Start: 1945 Screening for osteoporosis Bone Density Scan [facility] Start: 1945 Urine screening for protein Diabetes: Urine Protein Screening [facility] Bacteria identified in Urine by Culture [facility] Cotinine [Mass/volum e] in Serum or Plasma [facility] Immunofixation for Urine Fir [facility] Nicotine [Mass/volum e] in Serum or Plasma [facility] Patient Education [facility] Work Phone: Patient referral [facility] Work Phone: Renal function 2000 panel - Serum or Plasma [facility] Renal function 1999 panel - Serum or Plasma [facility] Renal function 1999 panel - Serum or Plasma [facility] Urine culture [facility] US Kidney - bilateral [facility] Immunizations Immunization Date Immunization Notes Care Provider Fa [facility] 07-03-2022 Fluad Quadrivalent 0 .5 ML Intramuscular Prefilled Syringe Li Lee Work Phone: [facility]-Tanif elias 250 DO Work Phone: 07-03-2022 influenza virus vacc ine, unspecified formulation Maxine Llanes [facility] 07-03-2022 influenza, injectabl e, quadrivalent, contains preservative Tom Morales MD Work Phone: [facility] Work Phone: 06-17-2022 Pfizer COVID-19 Vac Bivalent 30 MCG/0.3ML Intramuscular Suspension Li Lee Work Phone: [facility] Comment on above: Result Comment: 2022: [id number] 04-13-2021 Pfizer-BioNTech COVI D-19 Vacc 30 MCG/0.3ML Intramuscular Suspension Li Lee Work Phone: [facility] Comment on above: Result Comment: 2022: [id number] 08-30-2020 Pfizer-BioNTech COVI D-19 Vacc 30 MCG/0.3ML Intramuscular Suspension Li Ruizight Work Phone: [facility] Comment on above: Result Comment: 2022: [id number] 08-09-2020 Pfizer-BioNTech COVI D-19 Vacc 30 MCG/0.3ML Intramuscular Suspension Li Ruizight Work Phone: [facility] Comment on above: Result Comment: 2022: [id number] 07-01-2019 influenza virus vacc ine, unspecified formulation Maxine Llanes [facility] 07-01-2019 influenza, injectabl e, quadrivalent, contains preservative Li Lee Work Phone: [facility] DO Work Phone: 07-14-2018 influenza virus vacc ine, unspecified formulation Li Lee Work Phone: [facility] 04-16-2018 influenza virus vacc ine, unspecified formulation Maxine Llanes [facility] 04-16-2018 pneumococcal polysaccharide vaccine, 23 valent Li Lee Work Phone: [facility] 04-13-2018 influenza virus vacc ine, unspecified formulation Li Lee Work Phone: [facility] 250 DO Work Phone: 04-13-2018 pneumococcal conjuga te vaccine, 13 valent Li Lee Work Phone: [facility] 250 DO Work Phone: 05-16-2017 influenza virus vacc ine, unspecified formulation Maxine Llanes [facility] 05-12-2017 influenza, high dose seasonal, preservative-free Li Lee Work Phone: [facility] 250 DO Work Phone: 10-30-2016 pneumococcal conjuga te vaccine, 13 valent Li Lee Work Phone: [facility] 10-12-2016 pneumococcal polysaccharide vaccine, 23 valent Li Lee Work Phone: [place] [address] DO Work Phone: 07-14-2011 influenza virus vacc ine, unspecified formulation Li Lee Work Phone: [place] [address] DO Work Phone: Payers Date Payer Category Payer Self-pay [id number] 2023 Medicare [id number] 2022 Medicare supplementa l policy (as second payer) [facility] [id number] 2022 Unknown 2010 Medicare [id number]. [id number] 2010 Medicare [id number] 2.16.840.1.652904.19 1959 Medicare [id number] 1959 Self-pay [id number] 1959 Unknown [id number] 1945 Unknown [id number] 2.16.840.1.896285.3.579. 2.593 1945 Unknown [id number] 2.16.840.1.428974.3.579. 2.593 1945 Unknown [id number] 2.16.840.1.062656.3.579. 2.593 1945 Unknown [id number] 2.16.840.1.635039.3.579. 2.593 1945 Unknown [id number] 2.16.840.1.574042.3.579. 2.593 1945 Unknown [id number] 2.16.840.1.639042.3.579. 2.356 1945 Unknown [id number] 2.16.840.1.317922.3.579. 2.356 1945 Unknown [id number] 2.16.840.1.393962.3.579. 2.727 1945 Unknown [id number] 2.16.840.1.603816.3.579. 2.727 1945 Unknown [id number] 2.16.840.1.726279.3.579. 2.727 1945 Unknown [id number] 2.16.840.1.162893.3.579. 2.727 1945 Unknown [id number] 2.16.840.1.301469.3.579. 2.727 1945 Unknown [id number] 2.16.840.1.653576.3.579. 2.727 1945 Unknown [id number] 2.16.840.1.519129.3.579. 2. 1945 Unknown [id number] 2.16.840.1.229045.3.579. 2 1945 Unknown [id number] 2.16.840.1.320475.3.579. 2. 1945 Unknown [id number] 2.16.840.1.463798.3.579. 2 1945 Unknown [id number] 2.16.840.1.152616.3.579. 2 1945 Unknown [id number] 2.16.840.1.015109.3.579. 2 1945 Unknown [id number] 2.16.840.1.799280.3.579. 2 1945 Unknown [id number] 2.16.840.1.048539.3.579. 2 1945 Unknown [id number] 2.16.840.1.673720.3.579. 2 1945 Unknown [id number] 2.16.840.1.451764.3.579. 2 1945 Unknown [id number] 2.16840.1.134792.3.579. 2 1945 Unknown [id number] 2.16.840.1.886758.3.579. 2 1945 Unknown [id number] 2.16.840.1.360682.3.579. 2 1945 Unknown [id number] 2.16.840.1.409560.3.579. 2 1945 Unknown [id number] 2.16.840.1.197951.3.579. 2.1246 1945 Unknown [id number] 2.16.840.1.871826.3.579. 2.1246 1945 Unknown [id number] 2.16.840.1.059215.3.579. 2.1246 1945 Unknown [id number] 2.16.840.1.510614.3.579. 2.1246 1945 Unknown [id number] 2.16.840.1.122313.3.579. 2.124 1945 Unknown [id number] 2.16.840.1.849054.3.579. 2.727 1945 Unknown [id number] 2.16.840.1.325856.3.579. 2.1244 1945 Unknown [id number] 2.16.840.1.564317.3.579. 2.1244 Medicare [id number] Unknown [id number] 2.16.840.1.899184.3.579. 2.531 Unknown [id number] 2.16.840.1.388113.3.579. 2.531 Unknown [id number] 2.16.840.1.510166.3.579. 2.531 Unknown [id number] 2.16.840.1.777401.3.579. 2.531 Unknown [id number] 2.16.840.1.811596.3.579. 2.531 Unknown [id number] 2.16.840.1.121906.3.579. 2.531 Unknown [id number] 2.16.840.1.756457.3.579. 2.531 Unknown [id number] 2.16.840.1.797397.3.579. 2.531 Unknown [id number] 2.16.840.1.813528.3.579. 2.531 Unknown [id number] 2.16.840.1.812740.3.579. 2.531 Social History Date Type Detail Facility Start: 07-08-2023 End: 08-11-2024 Former smoker Former smoker -[facility] [address] DO Work Phone: Comment on above: Quit 17 years ago; Quit 25+ years ago; coffee occasionally soda, tea; Start: 08-06-2018 End: 06-24-2024 Tobacco smoking status NHIS Ex-smoker (finding) [facility] Comment on above: quit age 50 Start: 1945 Sex Assigned At Female F [facility] Start: 07-08-2023 End: 08-11-2024 [address] [facility] Tobacco smoking status Never [facility] Comment on above: quit age 50 End: 07-14-1999 History of tobacco use Current smoker [facility] Work Phone: End: 07-14-1999 History of tobacco use Cigarette Smoker [facility] Work Phone: Start: 07-08-2023 End: 08-11-2024 Tobacco use and exposure Smokeless tobacco non-user [facility] Work Phone: Start: 09-17-2023 End: 08-11-2024 Alcohol intake Current drinker of alcohol (finding) [facility] Work Phone: Start: 07-08-2023 Alcohol Comment occasional [facility] Work Phone: Start: 1945 Sex Assigned At Not on file [facility] Work Phone: Start: 09-07-2023 End: 08-11-2024 Exposure to SARS-CoV-2 (event) Not sure [facility] Start: 08-13-2023 Tobacco smoking stat us COIS Never smoked tobacco (finding) [facility] Start: 05-22-2024 End: 09-13-2024 Sex Female (finding) [facility] Medical Equipment Procedure Code Equipment Code Equipment Origin al Text Equipment Identifier Dates Cystoscopy, with ureteral calculus manipulation and stent placement Polymeric ureteral stent [id number] FDA Start: 01-23-2024 Cystoscopy, with ureteral calculus manipulation and stent placement Polymeric ureteral stent [id number] FDA Start: 2024 AAA repair with graft GRAFT SUSAN SHIELD [id number] FDA Start: 07-20-2018 AAA repair with graft IR STENT S MART 9 X 40 120 CM FDA Start: 07-20-2018 AAA repair with graft GRAFT SUSNA SHIELD [id number] FDA Start: 07-20-2018 AAA repair with graft IR STENT S MART 9 X 40 120 CM FDA Start: 07-20-2018 AAA repair with graft GRAFT SUSAN SHIELD [id number] FDA Start: 07-20-2018 AAA repair with graft IR STENT S MART 9 X 40 120 CM FDA Start: 07-20-2018 AAA repair with graft GRAFT SUSAN SHIELD [id number] FDA Start: 07-20-2018 AAA repair with graft IR STENT S MART 9 X 40 120 CM FDA Start: 07-20-2018 AAA repair with graft GRAFT SUSAN SHIELD [id number] FDA Start: 07-20-2018 AAA repair with graft IR STENT S MART 9 X 40 120 CM FDA Start: 07-20-2018 AAA repair with graft GRAFT SUSAN SHIELD [id number] FDA Start: 07-20-2018 AAA repair with graft IR STENT S MART 9 X 40 120 CM FDA Start: 07-20-2018 AAA repair with graft GRAFT SUSAN SHIELD [id number] FDA Start: 07-20-2018 AAA repair with graft IR STENT S MART 9 X 40 120 CM FDA Start: 07-20-2018 AAA repair with graft GRAFT SUSAN SHIELD [id number] FDA Start: 07-20-2018 AAA repair with graft IR STENT S MART 9 X 40 120 CM FDA Start: 07-20-2018 AAA repair with graft GRAFT SUSAN SHIELD [id number] FDA Start: 07-20-2018 AAA repair with graft IR STENT S MART 9 X 40 120 CM FDA Start: 07-20-2018 AAA repair with graft GRAFT SUSAN SHIELD [id number] FDA Start: 07-20-2018 AAA repair with graft IR STENT S MART 9 X 40 120 CM FDA Start: 07-20-2018 AAA repair with graft GRAFT SUSAN SHIELD [id number] FDA Start: 07-20-2018 AAA repair with graft IR STENT S MART 9 X 40 120 CM FDA Start: 07-20-2018 AAA repair with graft GRAFT SUSAN SHIELD [id number] FDA Start: 07-20-2018 AAA repair with graft IR STENT S MART 9 X 40 120 CM FDA Start: 07-20-2018 AAA repair with graft GRAFT SUSAN SHIELD [id number] FDA Start: 07-20-2018 AAA repair with graft IR STENT S MART 9 X 40 120 CM FDA Start: 07-20-2018 AAA repair with graft GRAFT SUSAN SHIELD [id number] FDA Start: 07-20-2018 AAA repair with graft IR STENT S MART 9 X 40 120 CM FDA Start: 07-20-2018 AAA repair with graft GRAFT SUSAN SHIELD [id number] FDA Start: 07-20-2018 AAA repair with graft IR STENT S MART 9 X 40 120 CM FDA Start: 07-20-2018 AAA repair with graft GRAFT SUSAN SHIELD [id number] FDA Start: 07-20-2018 AAA repair with graft IR STENT S MART 9 X 40 120 CM FDA Start: 07-20-2018 AAA repair with graft GRAFT SUSAN SHIELD [id number] FDA Start: 07-20-2018 AAA repair with graft [...] Assessment Result Facility 02-26-2024 Functional Status No [facility] 02-26-2024 Functional Status [facility] 02-10-2024 Functional Status N/A [facility] 01-25-2024 Functional status Patient at [facility] Work Phone: Mental Status Date Assessment Result Facility 01-25-2024 Cognitive function Cognitive Sta tus Patient at Baseline [facility] Work Phone: Clinical Notes 11-11-2016 to 08-12-2024 Assessment & Plan Note - Angela Braun APRN-SUPERVISOR KENNEL - 08/12/2024 9:45 AM ESTAssessment & Plan Note - SHAWANDA Parham - 08/12/2024 9:45 AM ESTPatient Instructions Note Date & Type Note Facility 08-12-2024 Evaluation + Plan note Associated Problem(s): BMI 33.0-33.9,adult Reviewed the merits of healthy lifestyle choices on overall cardiovascular health. [facility] Work Phone: 08-12-2024 Evaluation + Plan note Associated Problem(s): Type 2 diabetes mellitus On WILLIAMS/statin Recent hemoglobin A1c 8.2 [facility] Work Phone: 08-12-2024 Evaluation + Plan note Associated Problem(s): PVD (peripheral vascular disease) ([facility]) She has extensive history of peripheral arterial disease including July 2018 open AAA repair Left subclavian LUMBER KILN OPERATOR and stenting Right external iliac LUMBER KILN OPERATOR stenting Left common iliac intervention R ICA 50-69% She has not followed up with vascular since Dr. Chanel retired. During January 2024 hospitalization for hydronephrosis she had a CT of the abdomen that was unremarkable in regards to aortic aneurysm. [facility] Work Phone: 08-12-2024 Miscellaneous Notes Associated Problem(s): BMI 33.0-33.9,adult Reviewed the merits of healthy lifestyle choices on overall cardiovascular health. Associated Problem(s): Type 2 diabetes mellitus On WILLIAMS/statin Recent hemoglobin A1c 8.2 Associated Problem(s): PVD (peripheral vascular disease) ([facility]) She has extensive history of peripheral arterial disease including July 2018 open AAA repair Left subclavian LUMBER KILN OPERATOR and stenting Right external iliac LUMBER KILN OPERATOR stenting Left common iliac intervention R ICA [...] than 4 METS. documented in this encounter [facility] Work Phone: 08-12-2024 Evaluation + Plan note Associated Problem(s): Ischemic cardiomyopathy Ischemic cardiomyopathy heart failure borderline ejection fraction 48% October 2023 MPI Currently no SGLT2 due to acute kidney injury during hospitalization 2023 [facility] Work Phone: 08-12-2024 Evaluation + Plan note Associated Problem(s): Hyperlipidemia Moderate intensity statin [facility] Work Phone: 08-12-2024 Evaluation + Plan note Associated Problem(s): HTN (hypertension) Asymptomatic hypotension noted in the office today. [facility] Work Phone: 08-12-2024 Evaluation + Plan note Associated Problem(s): CAD, multiple vessel November 2016 CABG x 15 June 2017 cardiac cath Distal/mid RCA PCI/GURU x 2 HACKETT-LAD was patent Sequential saphenous vein graft from PDA-OM was occluded LVEF 45% October 2023 MPI no ischemia, no infarct. EF 48%. Current daily activity less than 4 METS. [facility] Work Phone: 08-11-2024 History of Presen t [...] Atorvastatin Myalgia Williams Inhibitors Other Spironolactone Other Dhexygh-Odo-Qpt Reductase Inhibitors Myalgia Current Outpatient Medications Medication [...] during hospitalization 2023 PVD (peripheral vascular disease) ([facility]) She has extensive history of peripheral arterial disease including July 2018 open AAA repair Left subclavian LUMBER KILN OPERATOR and stenting Right external iliac LUMBER KILN OPERATOR stenting Left common iliac intervention R ICA [...] annual unless abnormal testing Angela Braun MSN, OUTDOOR 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-SUPERVISOR KENNEL, PMHNP-[facility] [place], [place] Please excuse any errors in grammar or translation related to this dictation. Voice recognition software was utilized to prepare this document. documented in this encounter [facility] Work Phone: 08-11-2024 Instructions SHAWANDA Parham - [...] unless abnormal testing documented in this encounter [facility] Work Phone: 06-28-2024 Evaluation note Diagnosis Onset [...] kidney disease acute August 03, 2024 10:50am [facility] Work Phone: 1(576) 240-236911-07-2024 Evaluation note* Diagnosis Onset Date Resolution Status [...] wit h hyperglycemia acute July 01 10:55am [facility] Work Phone: 1(146) 327-451511-07-2024 Evaluation note* Diagnosis Onset Date Resolution Status [...] kidney disease acute August 03, 2024 10:50am [facility] Work Phone: 1(188) 301-619608-23-2024 Evaluation note* Diagnosis Onset Date Resolution Status [...] tract infection) acute April 07, 2024 10:09am [facility] Work Phone: 1(571) 181-251208-23-2024 Evaluation note* Diagnosis Onset Date Resolution Status [...] tract infection) acute May 25, 2024 10:32am [facility] Work Phone: 1(783) 723-795108-22-2024 NoteMicrobiology PROCEDURE: Blood Culture Charcoal [R1] SOURCE: Blood BODY SITE: Hand L COLLECTED DATE/TIME: 02/26/2024 19:07 EDT RECEIVED DATE/TIME: 02/26/2024 20:12 EDT START DATE/TIME: 02/26/2024 20:12 EDT FREE TEXT SOURCE: KADE MARLOW, Allison Pittman MD FINAL REPORTS Final Report [] Verified Date/Time: 03/04/2024 21:00 EDT No growth at 7 days. Performing Locations R1: This test was performed at: [facility], [address] [place] [address], [address] [place] [address], HitmwjBarnesville HospitalComment on above:Performed By: #### [id number] #### [facility] [address] [place] [address] [id number] NoteMicrobiology PROCEDURE: Blood Culture Charcoal [R1] SOURCE: Blood BODY SITE: Hand R COLLECTED DATE/TIME: 02/26/2024 19:07 EDT RECEIVED DATE/TIME: 02/26/2024 20:12 EDT START DATE/TIME: 02/26/2024 20:12 EDT FREE TEXT SOURCE: KADE MARLOW, Allison Pittman MD FINAL REPORTS Final Report [] Verified Date/Time: 03/04/2024 21:00 EDT No growth at 7 days. Performing Locations R1: This test was performed at: [facility], [address] [place] [address], [id number] , [place], HzsohdBarnesville HospitalComment on above:Performed By: #### [id number] #### [facility] [address] [place] [address] [id number] Hospital Discharge instructions Patient Education 02/29/2024 14:58:25 [...] Follow these instructions at home: Medicines Take fpbn-nav-pzabprq and prescription medicines only as told by [...] follow-up visits. Where to find more information [employer] of [employer] Patients: www.aakp.org National Kidney Foundation: www.kidney.org [employer]: www.akfinc.org Medical Education [place]: ?[employer]: www.lifeoptions.org ?Kidney [employer]: www.kidneyschool.org Contact a health care provider if: Your symptoms get worse. You have new symptoms such as: ?Headaches. ?Skin that is darker or ornamental ironworking supervisor than normal. ?Easy bruising. ?Itchiness. ?Hiccups. ?Lack [...] provider. Document Revised: 10/07/2022 Document Reviewed: 05/09/2020 [employer] Patient Education 2022 [employer]. 02/29/2024 14:58:22 Sepsis, Diagnosis, Adult Sepsis, Diagnosis, [...] Follow these instructions at home: Medicines Take edrt-yvl-ogtwhgk and prescription medicines only as told by [...] provider. Document Revised: 05/14/2021 Document Reviewed: 05/14/2021 [employer] Patient Education 2022 [employer]. Follow Up Care 02/26/2024 17:29:51 With:STEFAN BEST Address: [address] [place], [place] [id number] Business (1) When:03/05/2024 13:45:[address] [facility] 08-18-2024 NoteDischarge Summary Admission and Discharge [...] suprapubic pain. She was subsequently admitted to [facility] with acute metabolic encephalopathy secondary to [...] physical therapy. Initially physical therapy had recommended correction facility placement but patient was hesitant and [...] Discharge Disposition Discharge To, Anticipated II - [facility] Discharged to - Home with home [...] enteric coated t (more content not included)... [facility] HospitalComment on above:Result Comment: Electronically Signed By: Allison CHANCE MD\\.br\\Date and Time Signed: 02/29/24 16:44 EDT 02-29-2024 NoteProgress Note-Nurse Report called to Vincent Delgado, body and fender worker. Discharge paperwork provided to patient and .[facility]08-18-2024 Evaluation + Plan note Extracted from: Title:Discharge Note Author:Allison CHANCE MD ate:02/29/24 Stable Discharge To, Anticipated II - [facility] Discharged to - Home with home [...] 1 tab(s), Chewed, Daily Vitamin D [place], [address] [employer], Oral, Daily With When Contact Information STEFAN BEST 03/05/2024 01:45 PM EDT [address] [place], [place] [address] (1) Additional Instructions: Acute Kidney Injury, Adult [...] present on admission. Resolved. Ordered: Neurological Assessment [facility] Hospital Care/Day Moderate 35 Minutes 91759 2. Sepsis (A41.9: Sepsis, unspecified organism) Sepsis secondary to urinary tract infection present on admission. Resolved. Urine cultures isolating gram-negative sabrina organisms. Blood cultures so far not isolating any organisms. Ordered: [facility] Hospital Care/Day Moderate 35 Minutes 07492 3. Urinary tract infection (N39.0: Urinary tract infection, site not specified) Gram-negative sabrina urinary tract infection present on admission. Treated with IV ceftriaxone and will transition to oral antibiotics at discharge. Ordered: [facility] Hospital Care/Day Moderate 35 Minutes 15899 4. Acute kidney injury (N17.9: Acute kidney failure, unspecified) Acute kidney injury on chronic kidney disease secondary to ATN from above sepsis and UTI. Resolved. Creatinine down to 1.5. Baseline creatinine 1.4 1.5 Avoid nephrotoxic drugs. Treated with IV fluids. Ordered: [facility] Hospital Care/Day Moderate 35 Minutes 54745 5. Elevated troponin (R79.89: Other specified abnormal findings of blood chemistry) Elevated troponin secondary to type II non-ST segment elevation myocardial infarction from above disease process. Troponin trended down. Patient has no chest pain. No further workup needed. Ordered: [facility] Hospital Care/Day Moderate 35 Minutes 84466 6. Hypoglycemia (E16.2: Hypoglycemia, unspecified) Secondary to [...] is intolerant to atorvastatin used here at [facility]. 12. Class 3 severe obesity with serious comorbidity in adult (E66.01: Morbid (severe) obesity due to excess calories) Recommend therapeutic lifestyle modification changes. 13. Coronary artery disease (I25.10: Atherosclerotic heart disease of [place] coronary artery without angina pectoris) Status post CABG. Stable. Continue on Plavix, Coreg. 14. On deep vein thrombosis (DVT) prophylaxis (Z79.899: 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) Heparin. Disposition: Discharging AM [...] made to ensure accuracy. However inadvertent computerized document imaging manager errors may be present. Allison Chance. Hospitalist. [...] Assessment [facility] Hospital Care/Day Moderate 35 Minutes 15511 2. Sepsis (A41.9: Sepsis, unspecified organism) Sepsis secondary to urinary tract infection present on admission. Resolved. Treating with IV fluid, IV ceftriaxone. Blood cultures so far not isolating any organisms. Ordered: Home Health Orders [facility] Hospital Care/Day Moderate 35 Minutes 00044 3. Urinary tract infection (N39.0: Urinary tract infection, site not specified) Urinary tract infection present on admission. Treating with IV ceftriaxone pending final urine culture result. Ordered: [facility] Hospital Care/Day Moderate 35 Minutes 69219 4. Acute kidney injury (N17.9: Acute kidney failure, unspecified) Acute kidney injury on chronic kidney disease secondary to ATN from above sepsis and UTI. Resolved. Creatinine down to 1.5. Baseline creatinine 1.4 1.5 Avoid nephrotoxic drugs. Treating with IV fluids. Ordered: Basic Metabolic Panel eGFR Extra Lav Tube [facility] Hospital Care/Day Moderate 35 Minutes 38768 5. Elevated troponin (R79.89: Other specified abnormal findings of blood chemistry) Elevated troponin secondary to type II non-ST segment elevation myocardial infarction from above disease process. Troponin trended down. Patient has no chest pain. No further workup needed. Ordered: [facility] Hospital Care/Day Moderate 35 Minutes 71647 6. Hypoglycemia (E16.2: Hypoglycemia, unspecified) Secondary to [...] artery disease (I25.10: Atherosclerotic heart disease of [place] coronary artery without angina pectoris) Status post CABG. Stable. Continue on Plavix, Coreg. 14. On deep vein thrombosis (DVT) prophylaxis (Z79.899: 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) Heparin. Disposition: Pending final urine culture result. I discussed the diagnosis and plan of care with the patient at the bedside. Moderate level of MDM based on addressing above issues. This documentation was transcribed using voice recognition software. Several attempts were made to ensure accuracy. However inadvertent computerized document imaging manager errors may be present. Allison Chance. Hospitalist. [...] underlying disease process. Neurochecks. Follow cultures. Ordered: [facility] Hospital Care/Day Moderate 35 Minutes 48379 2. Sepsis (A41.9: Sepsis, unspecified organism) Sepsis secondary to urinary tract infection present on admission. Treating with IV fluid, IV ceftriaxone. Follow cultures. Ordered: [facility] Hospital Care/Day Moderate 35 Minutes 64486 3. Urinary tract infection (N39.0: Urinary tract infection, site not specified) Urinary tract infection present on admission. Treating with IV ceftriaxone pending final urine culture result. Ordered: [facility] Hospital Care/Day Moderate 35 Minutes 17008 4. Acute kidney injury (N17.9: Acute kidney failure, unspecified) Acute kidney injury on chronic kidney disease secondary to ATN from above sepsis and UTI. Avoid nephrotoxic drugs. Treating with IV fluids. Repeat BMP in AM. Ordered: Basic Metabolic Panel [facility] Hospital Care/Day Moderate 35 Minutes 27235 5. Elevated troponin (R79.89: Other specified abnormal findings of blood chemistry) Elevated troponin secondary to type II non-ST segment elevation myocardial infarction from above disease process. Troponin trended down. Patient has no chest pain. No further workup needed. Ordered: [facility] Hospital Care/Day Moderate 35 Minutes 55415 6. Generalized weakness (R53.1: Weakness) Secondary to [...] artery disease (I25.10: Atherosclerotic heart disease of [place] coronary artery without angina pectoris) Status post CABG. Stable. Continue on Plavix, Coreg. Will verify aspirin. 13. On deep vein thrombosis (DVT) prophylaxis (Z79.899: Other custodial (current) drug therapy) Heparin. Orders: acetaminophen, 650 [...] made to ensure accuracy. However inadvertent computerized document imaging manager errors may be present. Allison Chance. Hospitalist. [...] artery disease (I25.10: Atherosclerotic heart disease of [place] coronary artery without angina pectoris) Status post CABG: Stable. On aspirin, Plavix, will resume Coreg with hold parameters. 9. On deep vein thrombosis (DVT) prophylaxis (Z79.899: Other custodial (current) drug therapy) Heparin. Disposition: The patient [...] made to ensure accuracy. However inadvertent computerized document imaging manager errors may be present. Allison Chance. Hospitalist. [...] Vital Signs Vital Signs Vital Signs Weight [facility] 08-18-2024 NoteProgress Note-Physician Assessment/Plan 78-year-old female [...] injury?present on admission. Resolved. Ordered: Neurological Assessment [facility] Hospital Care/Day Moderate 35 Minutes 69714 2. Sepsis (A41.9: Sepsis, unspecified organism) Sepsis?secondary to urinary tract infection?present on admission. Resolved. Urine cultures isolating gram-negative sabrina organisms. Blood cultures so far not isolating any organisms. Ordered: [facility] Hospital Care/Day Moderate 35 Minutes 52610 3. Urinary tract infection (N39.0: Urinary tract infection, site not specified) Gram-negative sabrina urinary tract infection?present on admission. Treated with IV ceftriaxone and will transition to oral antibiotics at discharge. Ordered: [facility] Hospital Care/Day Moderate 35 Minutes 07212 4. Acute kidney injury (N17.9: Acute kidney failure, unspecified) Acute kidney injury on chronic kidney disease?secondary to ATN from above sepsis and UTI. Resolved. Creatinine down to 1.5. Baseline creatinine 1.4?1.5 Avoid nephrotoxic drugs. Treated with IV fluids. Ordered: [facility] Hospital Care/Day Moderate 35 Minutes 59283 5. Elevated troponin (R79.89: Other specified abnormal findings of blood chemistry) Elevated troponin?secondary to type II non-ST segment elevation myocardial infarction from above disease process. Troponin trended down. Patient has no chest pain. No further workup needed. Ordered: [facility] Hospital Care/Day Moderate 35 Minutes 51073 6. Hypoglycemia (E16.2: Hypoglycemia, unspecified) Secondary to [...] is intolerant to atorvastatin used here at [facility]. 12. Class 3 severe obesity with serious comorbidity in adult (E66.01: Morbid (severe) obesity due to excess calories) Recommend therapeutic lifestyle modification changes. 13. Coronary artery disease (I25.10: Atherosclerotic heart disease of [place] coronary artery without angina pectoris) Status post CABG. Stable. Continue on Plavix, Coreg. 14. On deep vein thrombosis (DVT) prophylaxis (Z79.899: Other custodial (current) drug therapy) Heparin. Disposition: Discharging AM [...] made to ensure accuracy. However inadvertent computerized document imaging manager errors may be present. Allison Chance. Hospitalist. [...] (4) Oral Intake mL (more content not included)...[facility] HospitalComment on above:Result Comment: Electronically Signed By: KADE MARLOW, Allison\\.br\\Date and Time Signed: 02/29/24 08:54 [id number] NoteProgress Note-Physician Assessment/Plan 78-year-old female with diabetes [...] Assessment [facility] Hospital Care/Day Moderate 35 Minutes 80194 2. Sepsis (A41.9: Sepsis, unspecified organism) Sepsis?secondary to urinary tract infection?present on admission. Resolved. Treating with IV fluid, IV ceftriaxone. Blood cultures so far not isolating any organisms. Ordered: Home Health Orders [facility] Hospital Care/Day Moderate 35 Minutes 33570 3. Urinary tract infection (N39.0: Urinary tract infection, site not specified) Urinary tract infection?present on admission. Treating with IV ceftriaxone pending final urine culture result. Ordered: [facility] Hospital Care/Day Moderate 35 Minutes 91232 4. Acute kidney injury (N17.9: Acute kidney failure, unspecified) Acute kidney injury on chronic kidney disease?secondary to ATN from above sepsis and UTI. Resolved. Creatinine down to 1.5. Baseline creatinine 1.4?1.5 Avoid nephrotoxic drugs. Treating with IV fluids. Ordered: Basic Metabolic Panel eGFR Extra Lav Tube [facility] Hospital Care/Day Moderate 35 Minutes 78810 5. Elevated troponin (R79.89: Other specified abnormal findings of blood chemistry) Elevated troponin?secondary to type II non-ST segment elevation myocardial infarction from above disease process. Troponin trended down. Patient has no chest pain. No further workup needed. Ordered: [facility] Hospital Care/Day Moderate 35 Minutes 58081 6. Hypoglycemia (E16.2: Hypoglycemia, unspecified) Secondary to [...] artery disease (I25.10: Atherosclerotic heart disease of [place] coronary artery without angina pectoris) Status post CABG. Stable. Continue on Plavix, Coreg. 14. On deep vein thrombosis (DVT) prophylaxis (Z79.899: Other custodial (current) drug therapy) Heparin. Disposition: Pending final urine culture result. I discussed the diagnosis and plan of care with the patient at the bedside. Moderate level of MDM based on addressing above issues. This documentation was transcribed using voice recognition software. Several attempts were made to ensure accuracy. However inadvertent computerized document imaging manager errors may be present. Allison Chance. Hospitalist. [...] feeling much better. Feeli (more content not included)...[facility] Comment on above:Result Comment: Electronically Signed By: KADE MARLOW, Allison\\.br\\Date and Time Signed: 02/28/24 08:54 [id number] NoteProgress Note-Physician Assessment/Plan 78-year-old female with diabetes [...] Ordered: [facility] Hospital Care/Day Moderate 35 Minutes 82484 2. Sepsis (A41.9: Sepsis, unspecified organism) Sepsis?secondary to urinary tract infection?present on admission. Treating with IV fluid, IV ceftriaxone. Follow cultures. Ordered: [facility] Hospital Care/Day Moderate 35 Minutes 13845 3. Urinary tract infection (N39.0: Urinary tract infection, site not specified) Urinary tract infection?present on admission. Treating with IV ceftriaxone pending final urine culture result. Ordered: [facility] Hospital Care/Day Moderate 35 Minutes 89029 4. Acute kidney injury (N17.9: Acute kidney failure, unspecified) Acute kidney injury on chronic kidney disease?secondary to ATN from above sepsis and UTI. Avoid nephrotoxic drugs. Treating with IV fluids. Repeat BMP in AM. Ordered: Basic Metabolic Panel [facility] Hospital Care/Day Moderate 35 Minutes 06835 5. Elevated troponin (R79.89: Other specified abnormal findings of blood chemistry) Elevated troponin?secondary to type II non-ST segment elevation myocardial infarction from above disease process. Troponin trended down. Patient has no chest pain. No further workup needed. Ordered: [facility] Hospital Care/Day Moderate 35 Minutes 40579 6. Generalized weakness (R53.1: Weakness) Secondary to [...] artery disease (I25.10: Atherosclerotic heart disease of [place] coronary artery without angina pectoris) Status post CABG. Stable. Continue on Plavix, Coreg. Will verify aspirin. 13. On deep vein thrombosis (DVT) prophylaxis (Z79.899: 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) Heparin. Orders: acetaminophen, 650 [...] 18:52:00 EDT, 02/26/24 18: (more content not included)...[facility] Hospital[facility] on above:Result Comment: Electronically Signed By: KADE MARLOW, Allison\\.br\\Date and Time Signed: 02/27/24 11:54 [id number] NoteProgress Note-Physician Assessment/Plan 78-year-old female with diabetes [...] underlying disease process. Neurochecks. Follow cultures. Ordered: [facility] Hospital Care/Day Moderate 35 Minutes 16257 2. Sepsis (A41.9: Sepsis, unspecified organism) Sepsis?secondary to urinary tract infection?present on admission. Treating with IV fluid, IV ceftriaxone. Follow cultures. Ordered: [facility] Hospital Care/Day Moderate 35 Minutes 24862 3. Urinary tract infection (N39.0: Urinary tract infection, site not specified) Urinary tract infection?present on admission. Treating with IV ceftriaxone pending final urine culture result. Ordered: [facility] Hospital Care/Day Moderate 35 Minutes 16136 4. Acute kidney injury (N17.9: Acute kidney failure, unspecified) Acute kidney injury on chronic kidney disease?secondary to ATN from above sepsis and UTI. Avoid nephrotoxic drugs. Treating with IV fluids. Repeat BMP in AM. Ordered: Basic Metabolic Panel [facility] Hospital Care/Day Moderate 35 Minutes 10332 5. Elevated troponin (R79.89: Other specified abnormal findings of blood chemistry) Elevated troponin?secondary to type II non-ST segment elevation myocardial infarction from above disease process. Troponin trended down. Patient has no chest pain. No further workup needed. Ordered: [facility] Hospital Care/Day Moderate 35 Minutes 39056 6. Generalized weakness (R53.1: Weakness) Secondary to [...] artery disease (I25.10: Atherosclerotic heart disease of [place] coronary artery without angina pectoris) Status post CABG. Stable. Continue on Plavix, Coreg. Will verify aspirin. 13. On deep vein thrombosis (DVT) prophylaxis (Z79.899: 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) Heparin. Orders: acetaminophen, 650 [...] 18:52:00 EDT, 02/26/24 18: (more content not included)...[facility] HospitalComment on above:Result Comment: Electronically Signed By: KADE MARLOW, Allison\\.br\\Date and Time Signed: 02/27/24 09:45 [id number] NoteHistory and Physical Chief Complaint To ED [...] reviewed in the emergency room by the regional owner operator truck driver who said the patient was not having [...] Lymph Auto: 8.4 % Low (02/26/24 17:30:00) [place] Auto: 7.9 % (02/26/24 17:30:00) Eos Auto: 0.5 % (02/26/24 17:30:00) Basophil Auto: 1 % (02/26/24 17:30:00) Neutro Absolute: 10.5 E9/L High (02/26/24 17:30:00) Lymph Absolute: 1.1 E9/L (02/26/24 17:30:00) [place] Absolute: 1 E9/L (02/26/24 17:30:00) Eos Absolute: [...] reviewed by me: N (more content not included)...[facility] HospitalComment on above:Result Comment: Electronically Signed By: KADE MARLOW, Allison\\.br\\Date and Time Signed: 02/26/24 19:01 [id number] Hospital Discharge instructions Patient Education 02/10/2024 16:20:39 [...] transplant. Follow these instructions at home: Take mfqb-arv-hjcfpsv and prescription medicines only as told by [...] provider. Document Revised: 10/17/2020 Document Reviewed: 10/17/2020 [employer] Patient Education 2022 [employer]. Follow Up Care 01/26/2024 09:56:54 With:REESE MARLOW, Yaniv Vela, URL Address: [facility] [place] [address]- When: Unknown [facility] [id number] NotePatient Education Urology Hydronephrosis Hydronephrosis is the [...] Follow these instructions at home: ? Take lthd-vdz-uwjwxkl and prescription medicines only as told by [...] provider. Document Revised: 10/17/2020 Document Reviewed: 10/17/2020 [employer] Patient Education ? 2022 [employer].[facility] 01-25-2024 Progress note Author Gita [facility] January 25, 2024 11:30am Note Date/Time January 25, 2024 11:3 1am [facility] [address] [place] [address] Nephrology Progress Note Signed Patient: Lexi Tatum MR#: [id number] : 1945 Acct:[id number] Age/Sex: 78 / F Adm Date: 4 Loc: Room: [address] [place] [address] Type: ADM IN Attending Dr: Norberto Pires [...] 25 Mg Tablet) 25 mg PO BID.WITH.MEALS [facility] Stop: 01/21/25 19:04 Last Admin: 01/25/24 08:29 Dose: 25 mg Dextrose (Dextrose 50% In Water 25 Gm/50 Ml Syringe) 0 gm IV-PUSH PRN PRN PRN Reason: Hypoglycemia Stop: 01/21/25 18:58 Docusate Sodium (Docusate 100 Mg Capsule) 100 mg PO BID [facility] Stop: 01/21/25 20:59 Last Admin: 01/25/24 08:30 Dose: 100 mg Furosemide (Furosemide 40 Mg Tablet) 40 mg PO DAILY.8A [facility] Stop: 01/25/25 07:59 Gabapentin (Gabapentin 300 Mg Capsule) 300 mg PO BID [facility] Stop: 01/21/25 20:59 Last Admin: 01/25/24 08:29 Dose: 300 mg Glucose (Dextrose 40% Gel 15 Gm Tube) 0 gm PO PRN PRN PRN Reason: Hypoglycemia Stop: 01/21/25 18:58 Heparin Sodium (Porcine) (Heparin 5,000 Unit/Ml Vial) 5,000 unit SUBCUT Q12HR [facility] Stop: 01/22/25 20:59 Last Admin: 01/24/24 09:07 Dose: 5,000 unit Hydralazine HCl (Hydralazine 20 Mg/Ml Vial) 10 mg IV-PUSH Q4H PRN PRN Reason: Hypertension Stop: 01/21/25 18:58 Insulin Aspart (Insulin Aspart 300 Units/3 Ml Insuln.Pen) 0 units SUBCUT TID.WM.HS [facility]; Protocol Stop: 01/21/25 21:59 Last Admin: 01/25/24 08:30 Dose: Not Given Insulin Glargine (Insulin Glargine 300 Units/3 Ml Insuln.Pen) 50 units SUBCUT QPM [facility] Stop: 01/23/25 20:59 Last Admin: 01/24/24 [...] <Electronically signed by MD Gita Azevedo> 01/25/24 1320 [facility] Work Phone: 1(920) 162-389607-13-2024 Progress note Author Norberto Pires [facility] January 24, 2024 2:31pm Note Date/Time January 24, 2024 2:25 pm [facility] [address] [place] [address] Hospitalist Progress Note Signed Patient: Lexi Tatum MR#: [id number] : 1945 Acct:[id number] Age/Sex: 78 / F Adm Date: 4 Loc: 3T Room: [address] [place] [address] Type: ADM IN Attending Dr: Norberto Pires DO Copies to: ~ Date of Service: 01/24/2024 Subjective Subjective Narrative: Overnight the patient did develop hematuria. This never had any clots. She hasnot had any difficulty voiding urine. Her beet colored urine was collected in the [employer] collection system. Just before my visit with [...] signed by Norberto Pires DO> 01/24/24 1431 [facility] Work Phone: 1(175) 607-729607-13-2024 Progress note Author Gita Azevedo [facility] January 24, 2024 12:21pm Note Date/Time January 24, 2024 12:2 2pm [facility] [address] [place] [address] Nephrology Progress Note Signed Patient: Lexi Tatum MR#: [id number] : 1945 Acct:[id number] Age/Sex: 78 / F Adm Date: 4 Loc: Room: [address] [place] [address] Type: ADM IN Attending Dr: Norberto Pires [...] 300 Mg Tablet) 300 mg PO DAILY [facility] Stop: 01/22/25 08:59 Last Admin: 01/24/24 09:08 Dose: 300 mg Atorvastatin Calcium (Atorvastatin 10 Mg Tablet) 10 mg PO QHS [facility] Stop: 01/21/25 21:59 Last Admin: 01/23/24 22:43 Dose: Not Given Carvedilol (Carvedilol 25 Mg Tablet) 25 mg PO BID.WITH.MEALS [facility] Stop: 01/21/25 19:04 Last Admin: 01/24/24 09:08 Dose: 25 mg Dextrose (Dextrose 50% In Water 25 Gm/50 Ml Syringe) 0 gm IV-PUSH PRN PRN PRN Reason: Hypoglycemia Stop: 01/21/25 18:58 Docusate Sodium (Docusate 100 Mg Capsule) 100 mg PO BID [facility] Stop: 01/21/25 20:59 Last Admin: 01/24/24 09:08 Dose: 100 mg Gabapentin (Gabapentin 300 Mg Capsule) 300 mg PO BID [facility] Stop: 01/21/25 20:59 Last Admin: 01/24/24 09:08 Dose: 300 mg Glucose (Dextrose 40% Gel 15 Gm Tube) 0 gm PO PRN PRN PRN Reason: Hypoglycemia Stop: 01/21/25 18:58 Heparin Sodium (Porcine) (Heparin 5,000 Unit/Ml Vial) 5,000 unit SUBCUT Q12HR [facility] Stop: 01/22/25 20:59 Last Admin: 01/24/24 09:07 Dose: 5,000 unit Hydralazine HCl (Hydralazine 20 Mg/Ml Vial) 10 mg IV-PUSH Q4H PRN PRN Reason: Hypertension Stop: 01/21/25 18:58 Sodium Chloride (0.9% Sodium Chloride 1,000 Ml) 1,000 mls @ 75 mls/hr IV .[id number] [facility] Stop: 01/21/25 18:59 Last Admin: 01/23/24 20:12 Dose: 100 mls/hr Insulin Aspart (Insulin Aspart 300 Units/3 Ml Insuln.Pen) 0 units SUBCUT TID.WM.HS [facility]; Protocol Stop: 01/21/25 21:59 Last Admin: [...] Rhett Ponce M.D.01/23/2024 7:31 PM Dictation Location: [place] [address] Any impression(s) listed above is documentation that [...] signed by MD Gita Azevedo> 01/24/24 1221 [facility] Work Phone: 1(515) 167-594207-12-2024 Progress note Author Norberto Pires [facility] January 23, 2024 6:51pm Note Date/Time January 23, 2024 6:40 pm [facility] [address] [place] [address] Hospitalist Progress Note Signed Patient: Lexi aTtum MR#: [id number] : 1945 Acct:[id number] Age/Sex: 78 / F Adm Date: 4 Loc: Room: [address] [place] [address] Type: ADM IN Attending Dr: Norberto Pires [...] 1,000 Ml IV 01/21/25 18:59 100 mls/hr .[id number] Administration Lactated Ringer's 1,000 mls @ [...] <Electronically signed by Norberto Pires DO> 01/23/24 0429 [facility] Work Phone: 1(319) 336-708707-12-2024 Consult note Author Yaniv Natarajan [facility] January 23, 2024 3:44pm Note Date/Time January 23, 2024 3:44 pm [facility] [address] [place] [address] Urology Consult Note Signed Patient: Lexi Tatum MR#: [id number] : 1945 Acct:[id number] Age/Sex: 78 / F Adm Date: 4 Loc: Room: [address] [place] [address] Type: ADM IN Attending Dr: Norberto Pires [...] and P documented by Dr. Pires yesterday. [facility] Medical History (Updated 01/23/24 @ 10:50 by [...] % (Auto) 65.0, Lymph % (Auto) 23.9, [place] % (Auto) 6.8, Eos % (Auto) 3.7, Baso % (Auto) 0.6, Nucleat RBC Rel Count 0.1, Neut # (Auto) 5.3, Lymph # (Auto) 2.0, [place] # (Auto) 0.6, Eos # (Auto) 0.3, [...] % (Auto) 68.5, Lymph % (Auto) 21.7, [place] % (Auto) 5.2, Eos % (Auto) 3.3, Baso % (Auto) 1.3, Nucleat RBC Rel Count 0.2, Neut # (Auto) 6.1, Lymph # (Auto) 1.9, [place] # (Auto) 0.5, Eos # (Auto) 0.3, [...] Cloudy A, Urine pH 7.0, Ur Specific [place] 1.010, Urine Protein 50 H, Urine Glucose [...] <Electronically signed by MD Yaniv Natarajan> 01/23/24 1547 [facility] Work Phone: 1(331) 213-394907-12-2024 Consult note Author [facility] January 23, 2024 12:19pm Note Date/Time January 23, 2024 11:1 9am [facility] [address] [place] [address] Nephrology Consult Note Signed Patient: Lexi Tatum MR#: [id number] : 1945 Acct:[id number] Age/Sex: 78 / F Adm Date: 4 Loc: Room: [address] [place] [address] Type: ADM IN Attending Dr: Norberto Pires DO Copies to: MD Norberto Franco DO Marcia E Braun, MD~ Providers Consult Date: 01/23/24 Requesting Provider: Norberto Pires DO Primary Care Provider: Stefan Best MD [facility] Reason for Consult: CKD management History [...] negative unless noted below or in HPI [facility] Medical History (Updated 01/23/24 @ 10:50 by [...] Ml) 1,000 mls @ 75 mls/hr IV .[id number] [facility] Stop: 01/21/25 18:59 Last Admin: 01/23/24 10:00 Dose: 100 mls/hr Insulin Aspart (Insulin Aspart 300 Units/3 Ml Insuln.Pen) 0 units SUBCUT TID.WM.HS [facility]; Protocol Stop: 01/21/25 21:59 Last Admin: 01/22/24 22:55 Dose: Not Given Insulin Glargine (Insulin Glargine 300 Units/3 Ml Insuln.Pen) 25 units SUBCUT QPM [facility] Stop: 01/21/25 20:59 Last Admin: 01/22/24 23:25 Dose: Not Given Magnesium Hydroxide (Magnesium Hydroxide Susp 30 Ml Udc) 30 ml PO BID PRN PRN Reason: Constipation Stop: 01/21/25 18:58 Metoprolol Tartrate (Metoprolol Tartrate 5 Mg/5 Ml Vial) 5 mg IV-PUSH Q4H PRN PRN Reason: Blood Pressure Stop: 01/21/25 18:58 Oxybutynin Chloride (Oxybutynin Chloride 5 Mg Tab.Er.24) 15 mg PO DAILY [facility] Stop: 01/22/25 08:59 Last Admin: 01/23/24 07:59 Dose: 15 mg Potassium Chloride (Potassium Chloride Er 10 Meq Capsule.Er) 10 meq PO DAILY [facility] Stop: 01/22/25 08:59 Last Admin: 01/23/24 [...] Cloudy A Urine pH 7.0 Ur Specific [place] 1.010 Urine Protein 50 H Urine Glucose [...] Iraheta Jr., D.O.01/22/2024 4:28 PM Dictation Location: [place] [address] Any impression(s) listed above is documentation that [...] <Electronically signed by MD Gita Azevedo> 01/23/24 1215 [facility] Work Phone: 1(153) 953-672907-11-2024 History and physical note Author Norberto Pires [facility] January 22, 2024 9:37pm Note Date/Time January 22, 2024 9:37 pm [facility] [address] [place] [address] Hospitalist H&P Signed Patient: Lexi Tatum MR#: [id number] : 1945 Acct:[id number] Age/Sex: 78 / F Adm Date: 4 Loc: Room: 9A0738-6 Type: ADM IN Attending Dr: Norberto Pires [...] 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 [...] % (Auto) 21.7 % (.) 01/22/24 15:18 [place] % (Auto) 5.2 % (.) 01/22/24 15:18 Eos % (Auto) 3.3 % (.) 01/22/24 15:18 Baso % (Auto) 1.3 % (.) 01/22/24 15:18 Nucleat RBC Rel Count 0.2 /100 WBC (0-0.5) 01/22/24 15:18 Neut # (Auto) 6.1 x10E3/uL (1.8-7.7) 01/22/24 15:18 Lymph # (Auto) 1.9 x10E3/uL (1.00-4.8) 01/22/24 15:18 [place] # (Auto) 0.5 x10E3/uL (0.0-0.8) 01/22/24 15:18 [...] pH 7.0 (5.0-9.0) 01/22/24 15:18 Ur Specific [place] 1.010 (1.001-1.030) 01/22/24 15:18 Urine Protein 50 [...] <Electronically signed by Norberto Pires DO> 01/22/242136 [facility] Work Phone: 1(485) 753-638903-06-2024 History of Present illness Narrative* Tom Morales [...] normal. Allergies [place] inhibitors, Atorvastatin, Spironolactone, and Pcreiib-fqe-plq reductase inhibitors Current Medications Current Outpatient Medications: [...] exam, discussion and plan. [facility] Work Phone: 1(374) 917-953903-06-2024 Instructions* Patient Instructions* Kaleigh Funez LPN - [...] time of your visit. [facility] Work Phone: 1(338) 792-104302-27-2024 Note [id number]#1.00[facility]2023 [id number]#1.00[facility]TEW[facility]02-19-2024 [id number]#1.00TIFLuis Tan [facility]01-31-2024 Evaluation note* Encounter Date Diagnosis Assessment Notes Treatment Notes Treatment Clinical Notes Jul, Primary osteoarthritis of left hip (ICD-10 - M16.12) Jul, Other We have provide d her a few names of [facility] physicians that are currently taking new patients [...] can see her 3 months after that. [employer] Other 09-14-2023 Evaluation note* Encounter Date Diagnosis [...] is considering changing from her current PCP [facility] Other 05-02-2023 Evaluation note* Encounter Date Diagnosis [...] Above note written by Ramandeep Aggarwal LPN, Medical Claims Analyst. Edited and approved by Dr. Ross Colmenares [...] negative findings were considered in medical decision-making. [employer] [facility] Other 05-01-2017 History general Narrative - Reported* Type Description Date Medical History SC Medical History Hyperlipiedmia Medical History PVD Medical History DM Medical History HTN Surgical History Open Heart 11/2016 Surgical History Cardiac Stent 09/2017 Surgical History Cardiac Stent 05/2017 Surgical History C- section 1960 Surgical History Rt iliac angioplasty & stent; Aortobiiliac bifurcation graft 07/20/18 Hospitalization History See above [employer] Other Evaluation + Plan note Future Appointments Appointment Date:03/25/2023 01:00:00 PM Scheduled Provider: Location:[facility] Appointment Type[facility]FM Medicare Wellness [facility] assessment information available [facility] Work Phone: Evaluation noteNo InformationNort SL[employer]Z | [employer] Other Evaluation note* Diagnosis CAD, multiple vessel- Primary S/P CABG x 3 Postsurgical aortocoronary bypass status History of angioplasty Primary hypertension Unspecified essential hypertension Ischemic cardiomyopathy Other specified forms of chronic ischemic heart disease Mixed hyperlipidemia BMI 32.0-32.9,adult Former smoker Personal history of tobacco use, presenting hazards to health Occlusion and stenosis of right carotid artery Shortness of breath documented in this encounter [facility] Work Phone: Evaluation note* Diagnosis CAD, multiple vessel S/P CABG x 3 Postsurgical aortocoronary bypass status Ischemic cardiomyopathy Other specified forms of chronic ischemic heart disease Occlusion and stenosis of right carotid artery Shortness of breath documented in this encounter [facility] Work Phone: Evaluation note* Diagnosis Onset Date Resolution Status Osteoarthritis of left hip a cute Type 2 diabetes mellitus with hyperglycemia acute UTI (urinary tract infection) acute Lumbar pain acute Osteoarthritis of left hip a cute Uncontrolled diabetes mellitus [facility] Work Phone: Evaluation note* Diagnosis Onset Date Resolution Status Osteoarthritis of left hip a cute Type 2 diabetes mellitus with hyperglycemia acute UTI (urinary tract infection) acute Lumbar pain acute Osteoarthritis of left hip a cute Uncontrolled diabetes mellitus acute OAB (overactive bladder) acu te Preoperative examination acu te Primary osteoarthritis of left hip acute Type 2 diabetes mellitus with hyperglycemia [facility] Work Phone: Evaluation note* Diagnosis Onset Date Resolution Status Lumbar pain acute Osteoarthritis of left hip a cute Uncontrolled diabetes mellitus acute OAB (overactive bladder) acu te Preoperative examination acu te Primary osteoarthritis of left hip acute Type 2 diabetes mellitus with hyperglycemia [facility] Work Phone: evaluation note* Diagnosis Onset [...] 4, GFR 15-29 ml/min acute Hyperlipidemia acute [id number] acute Secondary hyperparathyroidism acute Type 2 diabetes mellitus wit h diabetic chronic kidney disease acute [facility] Work Phone: Evaluation note* Diagnosis Onset [...] 15-29 ml/min acute Gout acute Hyperlipidemia acute [id number] acute Secondary hyperparathyroidism acute Type 2 diabetes [...] acute Hydroureter acute Hyperlipidemia acute Hypertension acute [id number] acute PAD (peripheral artery disease) acute Type 2 diabetes mellitus wit h diabetic chronic kidney disease acute Type 2 diabetes mellitus with hyperglycemia acute Urinary obstruction, unspecified acute [facility] Work Phone: Evaluation note* [...] 15-29 ml/min acute Gout acute Hyperlipidemia acute [id number] acute Secondary hyperparathyroidism acute Type 2 diabetes mellitus wit h diabetic chronic kidney disease acute Anemia of renal disease acut e Bilateral hydronephrosis acu te CAD (coronary artery disease) acute CKD (chronic kidney disease) stage 4, GFR 15-29 ml/min acute CKD stage 4 due to type 2 diabetes mellitus acute History of coronary artery bypass graft acute Hydroureter acute Hyperlipidemia acute Hypertension acute [id number] acute PAD (peripheral artery disease) acute Type 2 diabetes mellitus wit h diabetic chronic kidney disease acute Type 2 diabetes mellitus with hyperglycemia acute Urinary obstruction, unspecified acute Acute kidney injury resolved [facility] Work Phone: Evaluation note* Diagnosis Onset Date Resolution Status Anemia acute CKD stage 4 due to type 2 diabetes mellitus acute OAB (overactive bladder) acu te Primary osteoarthritis of left hip acute Anemia of renal disease acut e CKD (chronic kidney disease) stage 4, GFR 15-29 ml/min acute Gout acute Hyperlipidemia acute [id number] acute Secondary hyperparathyroidism acute Type 2 diabetes mellitus wit h diabetic chronic kidney disease acute Anemia of renal disease acut e Bilateral hydronephrosis acu te CAD (coronary artery disease) acute CKD (chronic kidney disease) stage 4, GFR 15-29 ml/min acute CKD stage 4 due to type 2 diabetes mellitus acute History of coronary artery bypass graft acute Hydroureter acute Hyperlipidemia acute Hypertension acute acute PAD (peripheral artery disease) acute Type 2 diabetes mellitus wit h diabetic chronic kidney disease acute Type 2 diabetes mellitus with hyperglycemia acute Urinary obstruction, unspecified acute Acute kidney injury resolved Anemia of renal disease acut e CKD (chronic kidney disease) stage 4, GFR 15-29 ml/min acute Primary osteoarthritis of left hip acute [facility] Work Phone: Evaluation note* Diagnosis Onset Date Resolution Status Anemia of renal disease acut e CKD (chronic kidney disease) stage 4, GFR 15-29 ml/min acute Gout acute Hyperlipidemia acute [id number] acute Secondary hyperparathyroidism acute Type 2 diabetes mellitus wit h diabetic chronic kidney disease acute Anemia of renal disease acut e Bilateral hydronephrosis acu te CAD (coronary artery disease) acute CKD (chronic kidney disease) stage 4, GFR 15-29 ml/min acute CKD stage 4 due to type 2 diabetes mellitus acute History of coronary artery bypass graft acute Hydroureter acute Hyperlipidemia acute Hypertension acute [id number] acute PAD (peripheral artery disease) acute Type [...] type 2 diabetes mellitus acute Hyperlipidemia acute [id number] acute Secondary hyperparathyroidism acute Type 2 diabetes mellitus wit h diabetic chronic kidney disease acute [facility] Work Phone: Evaluation note* Diagnosis Onset Date Resolution Status Anemia of renal disease acut e CKD (chronic kidney disease) stage 4, GFR 15-29 ml/min acute Gout acute Hyperlipidemia acute [id number] acute Secondary hyperparathyroidism acute Type 2 diabetes mellitus wit h diabetic chronic kidney disease acute Anemia of renal disease acut e Bilateral hydronephrosis acu te CAD (coronary artery disease) acute CKD (chronic kidney disease) stage 4, GFR 15-29 ml/min acute CKD stage 4 due to type 2 diabetes mellitus acute History of coronary artery bypass graft acute Hydroureter acute Hyperlipidemia acute Hypertension acute [id number] acute PAD (peripheral artery disease) acute Type [...] 15-29 ml/min acute Gout acute Hyperlipidemia acute [id number] acute Proteinuria acute Secondary hyperparathyroidism acute Type 2 diabetes mellitus wit h diabetic chronic kidney disease acute [facility] Work Phone: Evaluation note* Diagnosis Onset Date Resolution Status Anemia of renal disease acut e CKD (chronic kidney disease) stage 4, GFR 15-29 ml/min acute Gout acute Hyperlipidemia acute [id number] acute Secondary hyperparathyroidism acute Type 2 diabetes mellitus wit h diabetic chronic kidney disease acute Anemia of renal disease acut e Bilateral hydronephrosis acu te CAD (coronary artery disease) acute CKD (chronic kidney disease) stage 4, GFR 15-29 ml/min acute CKD stage 4 due to type 2 diabetes mellitus acute History of coronary artery bypass graft acute Hydroureter acute Hyperlipidemia acute Hypertension acute [id number] acute PAD (peripheral artery disease) acute Type [...] 15-29 ml/min acute Gout acute Hyperlipidemia acute [id number] acute Proteinuria acute Secondary hyperparathyroidism acute Type 2 diabetes mellitus wit h diabetic chronic kidney disease acute UTI (urinary tract infection) acute [facility] Work Phone: Evaluation note* Diagnosis CAD, [...] right carotid artery PVD (peripheral vascular disease) ([facility]) Unspecified peripheral vascular disease documented in this encounter [facility] Work Phone: History of Present illness Narrative* [...] are reviewed and felt to be satisfactory. -[facility]-Marquita 250 DO Work Phone: History of [...] are reviewed and felt to be satisfactory. [facility] 250 DO Work Phone: History of [...] we suggest no change and follow-up as [id number] 250 DO Work Phone: Hospital course Narrative No data available for this [facility] No data available for this [facility] No data available for this section [facility] (narrative)* Consultation (Routine) - Authorized Specialty Diagnoses / Procedures Referred By Contac t Referred To Contact Cardiology Diagnoses Occlusion and stenosis of right carotid artery Procedures Follow Up In Cardiology Tom Morales MD [address] [facility], [address] [address] Angela Braun, OUTDOOR 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-SUPERVISOR KENNEL [facility] [facility], [address] [address] Referral ID Status Reason Start Date Expiration Date V isits Requested Visits Authorized [id number] Authorized 09/17/2023 09/16/2024 1 1 * Cardiac Stress Testing (Routine) - Pending Review Specialty Diagnoses / Procedures Referred By Contac t Referred To Contact Radiology Diagnoses CAD, multiple vessel S/P CABG x 3 Ischemic cardiomyopathy Occlusion and stenosis of right carotid artery Shortness of breath Procedures Nuclear Stress Test CHG MYOCARDIAL SPECT MULTIPLE STUDIES Tom Morales MD [address] [facility], [address] [address] Referral ID Status Reason Start Date Expiration Date V isits Requested Visits Authorized [id number] Pending Review 09/17/2023 09/16/2024 5 5 [facility] Work Phone: Reason for visit [facility] on [facility]Saint [facility] [employer] | [employer] Other Summary Purpose Family History No Family [...] Relationship Condition Age at Onset Recorded Date/T angeilna Not Specified Hypertension Unknown Relationship Condition Age [...] is of left hip (M16.12) Referral Organization [facility] Referring Provider First Name Ross Referring Provider Last Name Darrian Referring Provider Specialty Pain Medici ne Referred Organization [facility] Referred Provider Da Lozano II Referred Address [address] [place], [place],[address] Referred Provider Specialty Orthopedic S urgery Referral [...] MYOCARDIAL SPECT MULTIPLE STUDIES Tom Morales MD [address] [facility], [address] [address] Referral ID Status Reason Start Date Expiration Date V isits Requested Visits Authorized [id number] Pending Review 09/17/2023 09/16/2024 5 5 Chief [...] disease) stage 4, GFR 15-29 ml/min Hyperlipidemia [id number] Secondary hyperparathyroidism Type 2 diabetes mellitus with diabetic chronic kidney disease Chief Complaint presurgical clearenc e. lt total hip M16.12 Z79.899 M81.0 pre surgical testing results RENAL CKD [address] over [address] sunshine sent over Reason for Visit OAB (overactive blad edmnud) Preoperative examination Primary osteoarthritis of left hip Type 2 diabetes mellitus with hyperglycemia Anemia CKD stage 4 due to type 2 diabetes mellitus OAB (overactive bladder) Primary osteoarthritis of left hip Anemia of renal disease CKD (chronic kidney disease) stage 4, GFR 15-29 ml/min Gout Hyperlipidemia [id number] Secondary hyperparathyroidism Type 2 diabetes mellitus with diabetic chronic kidney disease Acute kidney injury Anemia of renal disease Bilateral hydronephrosis CAD (coronary artery disease) CKD (chronic kidney disease) CKD (chronic kidney disease) stage 4, GFR 15-29 ml/min CKD stage 4 due to type 2 diabetes mellitus History of CHF (congestive heart failure) History of coronary artery bypass graft Hydronephrosis Hydroureter Hyperlipidemia Hypertension [id number] PAD (peripheral artery disease) Type 2 diabetes mellitus with diabetic chronic kidney disease Type 2 diabetes mellitus with hyperglycemia Urinary obstruction, unspecified Chief Complaint presurgical clearenc e. lt total hip M16.12 Z79.899 M81.0 pre surgical testing results RENAL CKD 4 dr sunshine sent over dr sunshine sent over [facility] f/u for stents in kidney Reason for Visit OAB (overactive blad edmund) Preoperative examination Primary osteoarthritis of left hip Type 2 diabetes mellitus with hyperglycemia Anemia CKD stage 4 due to type 2 diabetes mellitus OAB (overactive bladder) Primary osteoarthritis of left hip Anemia of renal disease CKD (chronic kidney disease) stage 4, GFR 15-29 ml/min Gout Hyperlipidemia [id number] Secondary hyperparathyroidism Type 2 diabetes mellitus with diabetic chronic kidney disease Anemia of renal disease Bilateral hydronephrosis CAD (coronary artery disease) CKD (chronic kidney disease) stage 4, GFR 15-29 ml/min CKD stage 4 due to type 2 diabetes mellitus History of coronary artery bypass graft Hydroureter Hyperlipidemia Hypertension [id number] PAD (peripheral artery disease) Type 2 diabetes mellitus with diabetic chronic kidney disease Type 2 diabetes mellitus with hyperglycemia Urinary obstruction, unspecified Acute kidney injury Chief Complaint pre surgical testing results RENAL CKD [address] dr [address] over [address] sunshine sent over [facility] f/u for stents in kidney [facility], Acute metobolic encephalopaty, [place] Reason for Visit Anemia CKD stage 4 due to type 2 diabetes mellitus OAB (overactive bladder) Primary osteoarthritis of left hip Anemia of renal disease CKD (chronic kidney disease) stage 4, GFR 15-29 ml/min Gout Hyperlipidemia [id number] Secondary hyperparathyroidism Type 2 diabetes mellitus with diabetic chronic kidney disease Anemia of renal disease Bilateral hydronephrosis CAD (coronary artery disease) CKD (chronic kidney disease) stage 4, GFR 15-29 ml/min CKD stage 4 due to type 2 diabetes mellitus History of coronary artery bypass graft Hydroureter Hyperlipidemia Hypertension [id number] PAD (peripheral artery disease) Type 2 diabetes mellitus with diabetic chronic kidney disease Type 2 diabetes mellitus with hyperglycemia Urinary obstruction, unspecified Acute kidney injury Anemia of renal disease CKD (chronic kidney disease) stage 4, GFR 15-29 ml/min Primary osteoarthritis of left hip Chief Complaint RENAL CKD [address] over [address] sunshine sent over [facility] f/u for stents in kidney [facility], Acute metobolic encephalopaty, [place] RENAL 2 MONTH F/U Reason for Visit Anemia of renal dise ase CKD (chronic kidney disease) stage 4, GFR 15-29 ml/min Gout Hyperlipidemia [id number] Secondary hyperparathyroidism Type 2 diabetes mellitus with diabetic chronic kidney disease Anemia of renal disease Bilateral hydronephrosis CAD (coronary artery disease) CKD (chronic kidney disease) stage 4, GFR 15-29 ml/min CKD stage 4 due to type 2 diabetes mellitus History of coronary artery bypass graft Hydroureter Hyperlipidemia Hypertension [id number] PAD (peripheral artery disease) Type 2 diabetes [...] due to type 2 diabetes mellitus Hyperlipidemia [id number] Secondary hyperparathyroidism Type 2 diabetes mellitus with diabetic chronic kidney disease Chief Complaint RENAL CKD [address] dr [address] over [address] sunshine sent over [facility] f/u for stents in kidney [facility], Acute metobolic encephalopaty, [place] RENAL 2 MONTH F/U UA frequency, burning Reason for Visit Anemia of renal dise ase CKD (chronic kidney disease) stage 4, GFR 15-29 ml/min Gout Hyperlipidemia [id number] Secondary hyperparathyroidism Type 2 diabetes mellitus with diabetic chronic kidney disease Anemia of renal disease Bilateral hydronephrosis CAD (coronary artery disease) CKD (chronic kidney disease) stage 4, GFR 15-29 ml/min CKD stage 4 due to type 2 diabetes mellitus History of coronary artery bypass graft Hydroureter Hyperlipidemia Hypertension [id number] PAD (peripheral artery disease) Type 2 diabetes [...] stage 4, GFR 15-29 ml/min Gout Hyperlipidemia [id number] Proteinuria Secondary hyperparathyroidism Type 2 diabetes mellitus with diabetic chronic kidney disease Chief Complaint RENAL CKD [address] sunshine sent over [facility] f/u for stents in kidney [facility], Acute metobolic encephalopaty, [place] RENAL 2 MONTH F/U UA frequency, burning Reason for Visit Anemia of renal dise ase CKD (chronic kidney disease) stage 4, GFR 15-29 ml/min Gout Hyperlipidemia [id number] Secondary hyperparathyroidism Type 2 diabetes mellitus with diabetic chronic kidney disease Anemia of renal disease Bilateral hydronephrosis CAD (coronary artery disease) CKD (chronic kidney disease) stage 4, GFR 15-29 ml/min CKD stage 4 due to type 2 diabetes mellitus History of coronary artery bypass graft Hydroureter Hyperlipidemia Hypertension [id number] PAD (peripheral artery disease) Type 2 diabetes [...] stage 4, GFR 15-29 ml/min Gout Hyperlipidemia [id number] Proteinuria Secondary hyperparathyroidism Type 2 diabetes mellitus with diabetic chronic kidney disease UTI (urinary tract infection) Chief Complaint Admit Date [facility], Acute metobolic encephalopaty, [place] March 05, 2024 [...] section and content) DATE CREATED AUTHOR 12/31/2017 [facility] DATE CREATED AUTHOR AUTHOR'S ORGANIZ ATION 01/07/2018 [facility] DATE CREATED AUTHOR AUTHOR'S ORGANIZ ATION 05/[facility]/2020 [facility] DATE CREATED AUTHOR AUTHOR'S ORGANIZ ATION 02/14/2022 [facility] DATE CREATED AUTHOR AUTHOR'S ORGANIZ ATION 07/26/2022 [facility] DATE CREATED AUTHOR AUTHOR'S ORGANIZ ATION 07/26/2022 [employer] DATE CREATED AUTHOR AUTHOR'S ORGANIZ ATION 02/28/2024 Tan Hemphill [facility] DATE CREATED AUTHOR AUTHOR'S ORGANIZ ATION 02/29/2024 Tan Hemphill [facility] DATE CREATED AUTHOR AUTHOR'S ORGANIZ ATION 03/01/2024 Tan Jose Alejandro [facility] DATE CREATED AUTHOR AUTHOR'S ORGANIZ ATION 03/04/2024 Tan Hemphill [facility] DATE CREATED AUTHOR AUTHOR'S ORGANIZ ATION 03/07/2024 Tan Jose Alejandro [facility] DATE CREATED AUTHOR AUTHOR'S ORGANIZ ATION 03/11/2024 Tan Hemphill [facility] DATE CREATED AUTHOR AUTHOR'S ORGANIZ ATION 05/16/2024 [facility] DATE CREATED AUTHOR AUTHOR'S ORGANIZ ATION 06/10/2024 [facility] DATE CREATED AUTHOR AUTHOR'S ORGANIZ ATION 08/13/2024 [facility] DATE CREATED AUTHOR AUTHOR'S ORGANIZ ATION 09/15/2024 [facility] Care Teams (unrecognized sec tion [...] Provider Active Start: January 23, 2024 Alyssa Ramírze MD Emergency Provider Active Start: January 23, [...] Active Ross Colmenares MD Attending Provider Active Pharmacy Sales Assistant Relationship Specialty Start Date End Date Tom Morales MD [address] [facility], [address] [address] PCP - MSSP ACO Attributed Provider 01/11/23 Stefan Best MD [address] [place] [id number] PCP - General Family Medicine 09/17/23 Pharmacy Sales Assistant Relationship Specialty Start Date End Date Tom Morales MD [address] [place] [address], [address] [address] PCP - MSSP ACO Attributed Provider 01/11/23 Stefan Best MD [address] [place] [address] PCP - General Family Medicine 09/17/23 Pharmacy Sales Assistant Relationship Specialty Start Date End Date Tom Morales MD [address] [place] [address], [address] [address] PCP - MSSP ACO Attributed Provider 01/11/23 Stefan Best MD [address] [place] [address] PCP - General Family Medicine 09/17/23 Pharmacy Sales Assistant Relationship Specialty Start Date End Date Tom Morales MD [address] [place] [address], [address] [address] PCP - MSSP ACO Attributed Provider 01/11/23 Stefan Best MD [address] [place] [phone] PCP - General Family Medicine 09/17/23 Pharmacy Sales Assistant Relationship Specialty Start Date End Date Tom Morales MD [address] [facility], [address] [place] [address] [facility] Attributed Provider 01/11/23 Stefan Best MD [address] [place] [address] [place] [address] PCP - General Family Medicine 09/17/23 Team [...] April 07, 2024 End: April 07, 2024 Pharmacy Sales Assistant Relationship Specialty Start Date End Date Stefan [...] SPECT MULTIPLE STUDIES Tom Morales MD [address] [facility], [address] [place] [address] Referral ID Status Reason Start Date Expiration Date V isits Requested Visits Authorized [id number] Pending Review 09/17/2023 09/16/2024 5 5 Reason Comments Follow-up 8m Old WPM patient Specialty Diagnoses / Procedures Referred By Contac t Referred To Contact Cardiology Diagnoses Occlusion and stenosis of right carotid artery Procedures Follow Up In Cardiology Tom Morales MD Smith, Donna K, OUTDOOR 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-SUPERVISOR KENNEL [address] [facility], [facility] [address] [place] [address] Phone: tel: fax: Referral ID Status Reason Start Date Expiration Date V isits Requested Visits Authorized [id number] Authorized 09/17/2023 09/16/2024 1 1 FOR RECORDS [...] BE BASED ON THE PRIMARY CLINICAL RECORDS. [employer] provides no warranty or guarantee of the accuracy or completeness of information in this document."
[2024-09-27] MEDS: ACETAMINOPHEN 325 MG TABLET 650 MG PO (03:38)
[2024-09-27] MEDS: ENOXAPARIN SODIUM 30 MG/0.3 ML SYRINGE SUBQ (03:38)
[2024-09-27 06:30] LABS: Basophils Percent Auto 0.3 % (0.2-2.0); Eosinophils Absolute Auto 0.1 10^3/uL (0.0-0.7); Eosinophils Percent Auto 0.8 % (0.9-7.0); Hematocrit 31.8 % (36.0-48.0); Hemoglobin 9.9 g/dL (12.0-16.0); Immature Granulocytes Abs Auto 0.04 10^3/uL (0.00-0.03); Immature Granulocytes Pct Auto 0.4 % (0.0-0.5); Lymphocytes Absolute Auto 2.2 10^3/uL (1.2-3.8); Lymphocytes Percent Auto 19.5 % (20.5-60.0); Mean Corpuscular HGB Conc 31.1 g/dL (29.9-35.2); Mean Corpuscular Volume 102.9 fL (81.0-99.0); Monocytes Percent Auto 8.6 % (1.7-12.0); Neutrophils Percent Auto 70.4 % (43.0-75.0); Platelet Count 209 10^3/uL (150-450); Red Blood Count 3.09 10^6/uL (4.20-5.40); Red Cell Distribution Width 15.5 % (11.0-15.0); White Blood Count 11.4 10^3/uL (4.0-11.0)
[2024-09-27 06:45] LABS: Alanine Aminotransferase <6 U/L (14-59); Albumin Globulin Ratio 0.6; Albumin Level 2.3 g/dL (3.4-5.0); Alkaline Phosphatase 52 U/L (46-116); Aspartate Amino Transferase 9 U/L (15-37); BUN Creatinine Ratio 28.6; Bilirubin Total 0.3 mg/dL (0.2-1.0); Calcium 8.8 mg/dL (8.5-10.1); Carbon Dioxide 26.7 mmol/L (21.0-32.0); Chloride 105 mmol/L (98-107); Estimated GFR (African America 32 (>=60 mL/min/1.73m^2); Estimated GFR (Non-African Ame 26 (>=60 mL/min/1.73m^2); Glucose 153 mg/dL (74-106); Potassium 3.7 mmol/L (3.5-5.1); Sodium 141 mmol/L (136-145); Total Protein 6.3 g/dL (6.4-8.2)
[2024-09-27] MEDS: CLOPIDOGREL BISULFATE 75 MG TABLET PO (09:20)
[2024-09-27] MEDS: ALLOPURINOL 300 MG TABLET PO (09:20)
[2024-09-27] MEDS: CARVEDILOL 25 MG TABLET PO (09:20)
[2024-09-27] MEDS: ASPIRIN 81 MG TABLET.DR PO (09:20)
[2024-09-27] MEDS: GABAPENTIN 300 MG CAPSULE PO (09:20)
[2024-09-27] MEDS: FERROUS SULFATE 325 MG TABLET PO (09:21)
[2024-09-27] MEDS: ATORVASTATIN CALCIUM 20 MG TABLET PO (09:21)
--- NOTE | 2024-09-27 09:21 | PM.HP ---
HPI H&P: HPI History of Present Illness Chief complaint: UTI,DEHYDRATION Narrative: Patient is a 79 y.o white female with past medical history of PAD, CAD, CKD stage IV, Hypertension, Gout, and Insulin dept type 2 diabetes. Patient called EMS last night when she became so weak she could not move off the toilet. She denies any n/v/d, any recent illnesses. She is complaint with her medications. ER findings of Acute UTI, was started on Rocephin IV. WBC's 11.6, lactate 1.1, Cr 2.12, BUN 58, K 3.7, Hb 11.9. She was afebrile and BP stable. She was admitted to the hospitalist service for generalized weakness presumed from Acute UTI. She has history of Klebsiella pneumoniae UTI sensitive to Rocephin. THis morning, patient reports weakness has improved and she feels back to her baseline. She is amendable to [facility]. Discussed discharge later today with close PCP follow up. Opioid HPI Opioid Management Most Recent Pain and Opioid Data: Last Pain Scale 3 09/27/24 12:00 09/27/24 Last Pain Intensity 4 09/01/23 09:23 09/01/23 Last Pain Assessment 09/27/24 12:56 Last MAR Pain Assessment 09/27/24 05:27 Last ORT Total Score 3 09/27/24 02:42 09/27/24 Last ORT Risk Category Low Risk 09/27/24 02:42 09/27/24 Review of Systems ROS Narrative ROS: a complete review of systems were reviewed with patient and are positive as below or listed in History of Chief Complaint. General: no fever, chills, night sweats Head: no headache, trauma, visual changes, nausea or vomiting Skin: no reported rashes, itching or sores Eyes: no blurriness of vision Ears: no reported hearing loss, vertigo, earache, or tinnitus Throat: no sore throat, hoarseness, swelling of neck, or tongue pain Heart: no chest pain Lungs: no shortness of breath or cough GI: no diarrhea or vomiting/nausea Urinary: no urinary urgency, frequency or pain Neuro: no numbness or tingling HEM: no bleeding issues or bruising ENDO: no thyroid problems Psych: no anxiety or depression [facility] Medical History (Updated 09/27/24 @ 09:29 by Connie Olmos DO) Gout ?M10.9 - Gout, unspecified (ICD-10) Peripheral arterial disease ?I73.9 - Peripheral vascular disease, unspecified (ICD-10) CAD (coronary artery disease) ?I25.10 - Atherosclerotic heart disease of [place] coronary artery without angina pectoris (ICD-10) Stage 3b chronic kidney disease (CKD) ?N18.32 - Chronic kidney disease, stage 3b (ICD-10) HTN (hypertension) ?I10 - Essential (primary) hypertension (ICD-10) Diabetes ?E11.9 - Type 2 diabetes mellitus without complications (ICD-10) Surgical History History of aortic bifurcation bypass graft ?Z95.828 - Presence of other vascular implants and grafts (ICD-10) S/P triple vessel bypass ?Z95.1 - Presence of aortocoronary bypass graft (ICD-10) History of 3 sections ?Z98.891 - History of uterine scar from previous surgery (ICD-10) Family History Brother Family history of cancer Mother Family history of hypertension Father Family history of myocardial infarction Other Family history of CHF (congestive heart failure) Family history of diabetes mellitus Social History Within the past year, how often did you have a drink containing alcohol: never Score interpretation: A score less than 3 is consistent with normal alcohol consumption. Smoking status: Former smoker Non-prescribed substance use: denies use Previous occupational history: disabled Highest level of school completed/degree received: high school graduate Are you now , , , , never or living with a partner: In a typical week, how many times do you talk on the telephone with family, friends, or neighbors: 3 or more times per week How often do you get together with friends or relatives: 3 or more times per week How often do you attend anabaptist or scientologist services: 4 or more times per year Little interest or pleasure in doing things: not at all Feeling down, depressed, or hopeless: not at all Feel stressed/tense/nervous/anxious/difficulty sleeping: not at all Do you think of yourself as: straight/heterosexual Gender Identity: female Meds Home Medications and Allergies Home Medications ?Medication ?Instructions ?Recorded ?Confirmed ?Type allopurinol 300 mg tablet 300 mg PO DAILY 08/30/23 09/26/24 History aspirin 81 mg tablet,delayed 81 mg PO DAILY 08/30/23 09/26/24 History release carvedilol 25 mg tablet 25 mg PO BID 08/30/23 09/26/24 History cholecalciferol (vitamin D3) 125 125 mcg PO .every other day 08/30/23 09/27/24 History mcg (5,000 unit) tablet clopidogrel 75 mg tablet 75 mg PO DAILY 08/30/23 09/26/24 History furosemide 40 mg tablet 40 mg PO QAM 08/30/23 09/26/24 History rosuvastatin 5 mg tablet 5 mg PO DAILY 08/30/23 09/26/24 History gabapentin 300 mg capsule 300 mg PO BID 08/31/23 09/26/24 History insulin aspart U-100 100 unit/mL 1 sliding scale dose subcut ACHS 08/31/23 09/26/24 History (3 mL) subcutaneous pen (Novolog FlexPen U-100 Insulin aspart) ferrous sulfate 325 mg (65 mg 325 mg PO .every other day 09/26/24 09/27/24 History iron) tablet (FeroSul) lisinopril 5 mg tablet 5 mg PO QDAY 09/26/24 09/26/24 History oxybutynin chloride 15 mg 15 mg PO QDAY 09/26/24 09/26/24 History tablet,extended release 24 hr insulin glargine 100 unit/mL (3 50 unit subcut .hs 09/27/24 09/27/24 History mL) subcutaneous pen (Basaglar KwikPen U-100 Insulin) Allergies Allergy/AdvReac Type Severity Reaction Status Date / Time No Known Drug Allergies Allergy Verified 09/26/24 22:45 Exam Narrative Exam Narrative: General: Patient is alert, and oriented to person, place and time with normal affect, proper hygiene Skin: no visible rashes, or ulcers Head: atraumatic, acephalic Eyes: PERRLA, no nystagmus present, conjunctiva clear, no scleral icterus Ears: normal gross auditory acuity Neck: no masses palpated, normal thyroid, no JVD or audible carotid bruits Heart: Normal rate and rhythm, no murmurs/rubs/gallops Lungs: no audible wheezes, crackles and normal breath sounds all lung martin Abdomen: Normal audible bowel sounds, no distension, No palpable masses, no organomegaly, no rebound/guarding/ or rigidity Musculoskeletal: no swelling bilateral lower extremities Neuro: CN II-X grossly intact Constitutional Vital Signs, click to edit/add: Last Vital Signs Temp 97.7 F 09/27/24 07:32 Pulse 62 09/27/24 08:03 Resp 16 09/27/24 07:32 BP 155/79 H 09/27/24 07:32 Pulse Ox 92 L 09/27/24 07:32 O2 Del Method Room Air 09/27/24 07:32 Results Labs Labs: Short CBC 09/26/24 09/27/24 Range/Units 22:48 06:22 WBC 13.4 H 11.4 H (4.0-11.0) 10^3/uL Hgb 11.6 L 9.9 L (12.0-16.0) g/dL Hct 36.8 31.8 L (36.0-48.0) % Plt Count 234 209 (150-450) 10^3/uL BMP 09/26/24 09/27/24 22:48 06:22 Sodium 137 141 Potassium 4.7 3.7 Chloride 100 105 Carbon Dioxide 27.9 26.7 BUN 58.0 H 53.0 H Creatinine 2.12 H 1.85 H Glucose 205 H 153 H Calcium 9.5 8.8 Liver Function 09/27/24 Range/Units 06:22 Total Bilirubin 0.3 (0.2-1.0) mg/dL AST 9 L (15-37) U/L ALT <6 L (14-59) U/L Alkaline Phosphatase 52 (46-116) U/L Albumin 2.3 L (3.4-5.0) g/dL Urine 09/26/24 Range/Units 22:55 Urine Color Yellow (YELLOW) Urine Clarity Clear (CLEAR) Urine pH 6.5 (5.0-9.0) Ur Specific [place] 1.015 (1.005-1.025) Urine Protein 100 A (NEG/TRACE) mg/dL Urine Glucose (UA) Negative (NEGATIVE) mg/dL Assessment and Plan Assessment and Plan (1) Acute UTI: Assessment and Plan: continue on Rocephin, Urine culture pending, history of Klebsiella pneumoniae UTI that was sensitive to Rocephin (2) Generalized weakness: Assessment and Plan: will Get PT/OT evaluations, but most likely secondary to #1 (3) Gout: Assessment and Plan: continue allopurinol Qualifiers: Chronicity: chronic Gout etiology: due to renal impairment Gout site: unspecified site Presence of tophus: without tophus Qualified Code(s): M1A.30X0 - Chronic gout due to renal impairment, unspecified site, without tophus (tophi) (4) Stage 3b chronic kidney disease (CKD): Assessment and Plan: appears at baseline, stop fluids (5) HTN (hypertension): Assessment and Plan: resume home lisinopril, coreg, lasix Qualifiers: Hypertension 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 transplanted heart: [place] heart Qualified Code(s): I25.10 - Atherosclerotic heart disease of [place] coronary artery without angina pectoris Plan Patient is a full code continue aspirin and plavix patient is observation status and is not expected to cross 2 midnights for treatment of her acute UTI
--- NOTE | 2024-09-27 11:00 | CM.NOTE ---
Rounds made with Dr. Olmos, PT and OT evaluated pt for discharge planning. Dr. Olmos discussed skilled therapy as recommendation, pt refuses but is open to services and has had [facility] in the past. Pt in agreement for [facility], pt will discharge to home today and f/u with Dr. Cazares in one week.
--- NOTE | 2024-09-27 11:15 | SWNOTE1 ---
SW received a message from case management and pt would like [facility]. Referral sent to [facility]. Referral included face sheet, ED note, H&P, provider notes, case management report, and therapy notes.
[2024-09-27 11:46] LABS: Glucometer 156 mg/dL (74-106)
--- NOTE | 2024-09-27 12:43 | CM.NOTE ---
Medicare Outpatient Observation Notice discussed with pt, pt verbalizes understanding and signs paper. Original given to pt and copy placed on pt's chart.
--- NOTE | 2024-09-27 13:04 | PM.DS1 ---
DS: Providers Provider Date of admission: 09/27/24 02:27 Primary care physician: Olivia Cazares MD Attending physician on admission: Connie Olmos Consults: 09/27/24 Occupational Therapy Eval and Treat Routine Reason for consultation: lives at home Physical Therapy Eval and Treat Routine Reason for consultation: eval Discharging clinician: Connie Olmos DS: Diagnosis Discharge Diagnosis (1) Acute UTI: (2) Generalized weakness: (3) Gout: Qualifiers: Gout site: unspecified site Gout etiology: due to renal impairment Chronicity: chronic Presence of tophus: without tophus Qualified Code(s): M1A.30X0 - Chronic gout due to renal impairment, unspecified site, without tophus (tophi) (4) Stage 3b chronic kidney disease (CKD): (5) HTN (hypertension): Qualifiers: Hypertension 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 Qualified Code(s): 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 - Hypertension secondary to endocrine disorders (6) Diabetes: Qualifiers: Diabetes mellitus type: type 2 Diabetes mellitus skilled nursing insulin use: with skilled nursing use Diabetes mellitus complication status: with kidney complications Diabetes mellitus complication detail: with chronic kidney disease Chronic kidney disease stage: stage 3 (moderate) Chronic kidney disease stage 3 subtype: stage 3b (GFR 30-44) Qualified Code(s): E11.22 - Type 2 diabetes mellitus with diabetic chronic kidney disease; N18.32 - Chronic kidney disease, stage 3b; Z79.4 - [facility] (current) use of insulin (7) CAD (coronary artery disease): Qualifiers: Coronary Disease-Associated Artery/Lesion type: [place] artery [place] vs. transplanted heart: [place] heart Associated angina: without angina Qualified Code(s): I25.10 - Atherosclerotic heart disease of [place] coronary artery without angina pectoris DS: Summary Hospital Course Hospital Course: Patient will be treated with Keflex 250mg BID x 7 days, CrCl 29. Urine culture pending at the time of discharge. Status at Discharge Functional status at discharge: independent ambulation Overall status at discharge: patient is back to baseline Time Spent with Patient Time attestation: Total time spent providing and/or coordinating discharge services: Time spent: greater than 30 minutes Exam Narrative Exam Narrative: no changes at the time of discharge from admission exam dated 09/27/24 Constitutional Vital Signs, click to edit/add: Last Vital Signs Temp 98.2 F 09/27/24 12:00 Pulse 72 09/27/24 12:00 Resp 16 09/27/24 12:00 BP 126/74 09/27/24 12:00 Pulse Ox 92 L 09/27/24 12:00 O2 Del Method Room Air 09/27/24 12:00 DS: Data Data Completed and Pending Labs on day of discharge: Labs from last 24 hours 09/27/24 09/27/24 09/26/24 11:40 06:22 22:55 WBC 11.4 H RBC 3.09 L Hgb 9.9 L Hct 31.8 L MCV 102.9 H MCH 32.0 MCHC 31.1 RDW 15.5 H Plt Count 209 MPV 11.0 Neut % (Auto) 70.4 Lymph % (Auto) 19.5 L Lynn % (Auto) 8.6 Eos % (Auto) 0.8 L Baso % (Auto) 0.3 Neut # (Auto) 8.0 H Lymph # (Auto) 2.2 Lynn # (Auto) 1.0 H Eos # (Auto) 0.1 Baso # (Auto) 0.0 Abs Immat Gran (auto) 0.04 H Imm/Tot Granulo (auto) 0.4 Sodium 141 Potassium 3.7 Chloride 105 Carbon Dioxide 26.7 Anion Gap 13.0 BUN 53.0 H Creatinine 1.85 H Est GFR ( Amer) 32 L Est GFR (Non-Af Amer) 26 L BUN/Creatinine Ratio 28.6 Glucose 153 H Calcium 8.8 Magnesium 2.0 Total Bilirubin 0.3 AST 9 L ALT <6 L Alkaline Phosphatase 52 Troponin I High Sens Total Protein 6.3 L Albumin 2.3 L Globulin 4.0 Albumin/Globulin Ratio 0.6 Urine Color Yellow Urine Clarity Clear Urine pH 6.[address] 1.015 Urine Protein 100 A Urine Glucose (UA) Negative Urine Ketones Negative Urine Occult Blood Moderate A Urine Nitrite Negative Urine Bilirubin Negative Urine Urobilinogen 0.2 Ur Leukocyte Esterase Large A Urine RBC 2-5 A Urine WBC 50-75 A Ur Squamous Epith Cells Rare Ur Transition Epith Cell Few A Urine Crystals None seen Urine Bacteria Large A Urine Casts None seen Urine Mucus None seen Ur Culture Indicated? Yes-[facility] Glucose 156 H 09/26/24 22:48 WBC 13.4 H RBC 3.54 L Hgb 11.6 L Hct 36.8 MCV 104.0 H MCH 32.8 MCHC 31.5 RDW 15.7 H Plt Count 234 MPV 11.3 Neut % (Auto) 72.6 Lymph % (Auto) 16.6 L Lynn % (Auto) 8.4 Eos % (Auto) 1.3 Baso % (Auto) 0.4 Neut # (Auto) 9.7 H Lymph # (Auto) 2.2 Lynn # (Auto) 1.1 H Eos # (Auto) 0.2 Baso # (Auto) 0.1 Abs Immat Gran (auto) 0.10 H Imm/Tot Granulo (auto) 0.7 H Sodium 137 Potassium 4.7 Chloride 100 Carbon Dioxide 27.9 Anion Gap 13.8 BUN 58.0 H Creatinine 2.12 H Est GFR ( Amer) 27 L Est GFR (Non-Af Amer) 22 L BUN/Creatinine Ratio 27.4 Glucose 205 H Calcium 9.5 Magnesium Total Bilirubin AST ALT Alkaline Phosphatase Troponin I High Sens 21.9 Total Protein Albumin Globulin Albumin/Globulin Ratio Urine Color Urine Clarity Urine pH Ur Specific [place] Urine Protein Urine Glucose (UA) Urine Ketones Urine Occult Blood Urine Nitrite Urine Bilirubin Urine Urobilinogen Ur Leukocyte Esterase Urine RBC Urine WBC Ur Squamous Epith Cells Ur Transition Epith Cell Urine Crystals Urine Bacteria Urine Casts Urine Mucus Ur Culture Indicated? POC Glucose Preliminary micro results at discharge 09/26/24 22:55 Urine Culture - Preliminary Urine,Clean Catch Pending - Specimen sent to [facility] Discharge Plan Discharge Disposition: Home Health Service Discharge Medications: New cephalexin 250 mg capsule 250 mg PO BID 7 Days Qty: 14 0RF Continued allopurinol 300 mg tablet 300 mg PO DAILY aspirin 81 mg tablet,delayed release (DR/EC) 81 mg PO DAILY carvedilol 25 mg tablet 25 mg PO BID cholecalciferol (vitamin D3) 125 mcg (5,000 unit) tablet 125 mcg PO .every other day clopidogrel 75 mg tablet 75 mg PO DAILY furosemide 40 mg tablet 40 mg PO QAM rosuvastatin 5 mg tablet 5 mg PO DAILY gabapentin 300 mg capsule 300 mg PO BID insulin aspart U-100 [Novolog FlexPen U-100 Insulin] 100 unit/mL (3 mL) insulin pen 1 sliding scale dose SUBCUT ACHS ferrous sulfate [FeroSul] 325 mg (65 mg iron) tablet 325 mg PO .every other day lisinopril 5 mg tablet 5 mg PO QDAY oxybutynin chloride 15 mg tablet extended release 24hr 15 mg PO QDAY insulin glargine [Basaglar KwikPen U-100 Insulin] 100 unit/mL (3 mL) insulin pen 50 unit subcut .hs Activity: increase activity as tolerated Diet: advance to your usual diet Print Language: Faroese Forms: Portal Instructions Follow Up Appointments: October 04 @ 10:[address] Cazares [address] [place] [address] Discharge location: Home with Home Health Services
[2024-09-27 13:26] LABS: Estimated Average Glucose 174 mg/dL; Glycohemoglobin A1C 7.7 % (4.5-6.2)
--- NOTE | 2024-09-27 15:15 | CM.NOTE ---
Faxed Case Management referral information, continue physician notes, H7P, D/C summary, CRF and med rec to [facility], pt will discharge today.
--- NOTE | 2024-09-28 15:03 | CM.DCFOLLOWU ---
Person spoke with: Lexi How are you feeling? Much better How is your pain? No pain Did you understand your discharge instructions? Yes Do you have any questions about your discharge instructions? No questions Were you given any prescriptions at discharge? Yes Were you able to get your prescriptions filled? Yes Do you understand how to take your medications as ordered? Yes Do you have any questions about your follow up appointment and do you plan to keep your follow up appointment? No appt is scheduled, pt given [facility] number to contact if they do not reach out in the next couple days Is there anything else that you would like to discuss? No Questions/Comments/Concerns/Other:
--- NOTE | 2024-09-30 13:08 | CM.NOTE ---
Urine culture results faxed to Dr. Cazares's office. Appointment October 04, 2024.
== END 2024-09-27 14:48 | disposition home health service (06) ==
LOC: ER 09-27 01:14 → MS 09-27 02:35
PROVIDERS: Registered Nurse; Admitting Provider Family Medicine; Emergency Provider Internal Medicine; PCP Family Medicine; Visit Provider Family Medicine
DX: N39.0 Urinary tract infection, site not specified (principal); E86.0 Dehydration; J98.11 Atelectasis; E11.22 Type 2 diabetes mellitus with diabetic chronic kidney disease; I15.2 Hypertension secondary to endocrine disorders; N18.32 Chronic kidney disease, stage 3b; I25.10 Atherosclerotic heart disease of native coronary artery without angina pectoris; M1A.30X0 Chronic gout due to renal impairment, unspecified site, without tophus (tophi); I73.9 Peripheral vascular disease, unspecified; Z79.82 Long term (current) use of aspirin; Z79.02 Long term (current) use of antithrombotics/antiplatelets; Z79.4 Long term (current) use of insulin; Z79.899 Other long term (current) drug therapy; Z95.828 Presence of other vascular implants and grafts; Z95.1 Presence of aortocoronary bypass graft; Z87.891 Personal history of nicotine dependence
CPT/HCPCS: 36415; 71045; 80048; 80053; 81001; 83036; 83735; 84484; 85025; 87086; 87150; 93005; 94761; 96365; 96366; 96372; 97161; 97530; 99285; G0378; J0696; J1650

== ENCOUNTER 2024-11-10 16:05 | Outpatient (OUT) | payer MEDICARE, SELFPAY ==
--- NOTE | 2024-11-10 16:04 | PM.WCHP ---
Wound Care H&P: HPI History of Present Illness Narrative: The patient is a 79-year-old female with history of type 2 diabetes who presents for routine nail care. She has no complaints in regards to her feet at this time. [facility] Medical History (Updated 11/10/24 @ 16:08 by DELROY Hernandez) Gout ?M10.9 - Gout, unspecified (ICD-10) Peripheral arterial disease ?I73.9 - Peripheral vascular disease, unspecified (ICD-10) CAD (coronary artery disease) ?I25.10 - Atherosclerotic heart disease of [place] coronary artery without angina pectoris (ICD-10) Stage 3b chronic kidney disease (CKD) ?N18.32 - Chronic kidney disease, stage 3b (ICD-10) HTN (hypertension) ?I10 - Essential (primary) hypertension (ICD-10) Diabetes ?E11.9 - Type 2 diabetes mellitus without complications (ICD-10) Surgical History History of aortic bifurcation bypass graft ?Z95.828 - Presence of other vascular implants and grafts (ICD-10) S/P triple vessel bypass ?Z95.1 - Presence of aortocoronary bypass graft (ICD-10) History of 3 sections ?Z98.891 - History of uterine scar from previous surgery (ICD-10) Family History Brother Family history of cancer Mother Family history of hypertension Father Family history of myocardial infarction Other Family history of CHF (congestive heart failure) Family history of diabetes mellitus Social History Within the past year, how often did you have a drink containing alcohol: never Score interpretation: A score less than 3 is consistent with normal alcohol consumption. Smoking status: Former smoker Non-prescribed substance use: denies use Previous occupational history: disabled Highest level of school completed/degree received: high school graduate Are you now , , , , never or living with a partner: In a typical week, how many times do you talk on the telephone with family, friends, or neighbors: 3 or more times per week How often do you get together with friends or relatives: 3 or more times per week How often do you attend mosque or baptist services: 4 or more times per year Little interest or pleasure in doing things: not at all Feeling down, depressed, or hopeless: not at all Feel stressed/tense/nervous/anxious/difficulty sleeping: not at all Do you think of yourself as: straight/heterosexual Gender Identity: female Meds Home Medications and Allergies Home Medications ?Medication ?Instructions ?Recorded ?Confirmed ?Type allopurinol 300 mg tablet 300 mg PO DAILY 08/30/23 09/26/24 History aspirin 81 mg tablet,delayed 81 mg PO DAILY 08/30/23 09/26/24 History release carvedilol 25 mg tablet 25 mg PO BID 08/30/23 09/26/24 History cholecalciferol (vitamin D3) 125 125 mcg PO .every other day 08/30/23 09/27/24 History mcg (5,000 unit) tablet clopidogrel 75 mg tablet 75 mg PO DAILY 08/30/23 09/26/24 History furosemide 40 mg tablet 40 mg PO QAM 08/30/23 09/26/24 History rosuvastatin 5 mg tablet 5 mg PO DAILY 08/30/23 09/26/24 History gabapentin 300 mg capsule 300 mg PO BID 08/31/23 09/26/24 History insulin aspart U-100 100 unit/mL 1 sliding scale dose subcut ACHS 08/31/23 09/26/24 History (3 mL) subcutaneous pen (Novolog FlexPen U-100 Insulin aspart) ferrous sulfate 325 mg (65 mg 325 mg PO .every other day 09/26/24 09/27/24 History iron) tablet (FeroSul) lisinopril 5 mg tablet 5 mg PO QDAY 09/26/24 09/26/24 History oxybutynin chloride 15 mg 15 mg PO QDAY 09/26/24 09/26/24 History tablet,extended release 24 hr cephalexin 250 mg capsule 250 mg PO BID 7 days #14 caps 09/27/24 Rx insulin glargine 100 unit/mL (3 50 unit subcut .hs 09/27/24 09/27/24 History mL) subcutaneous pen (Basaglar KwikPen U-100 Insulin) Allergies Allergy/AdvReac Type Severity Reaction Status Date / Time No Known Drug Allergies Allergy Verified 09/26/24 22:45 Exam Narrative: Exam Narrative: Dermatologic: Skin is dry and shiny diffusely on the lower legs and feet. No open lesions noted. Toenails are thickened, mycotic, and elongated. No evidence of paronychia Vascular: DP pulses are nonpalpable bilaterally, PT pulses are nonpalpable bilaterally, capillary refill is brisk. Superficial varicosities noted bilaterally. Skin is cool to the touch. Edema noted of the foot and ankle bilaterally. Digital hair is absent. Neurologic: Vibratory sensation is absent bilaterally. Achilles deep tendon reflexes 1+ bilaterally. Monofilament testing revealed protective sensation is intact and 5/5 tested areas. Musculoskeletal: No gross deformity. No pain with palpation. Assessment and Plan Assessment and Plan (1) Tinea unguium: (2) Diminished pulses in lower extremity: (3) Type 2 diabetes mellitus with diabetic neuropathy, unspecified: (4) Gait instability: (5) Disorder of nail due to another disorder: Plan Routine nail care performed. Follow-up in 3 months. Acute Procedures Podiatry Nail Debridement Class B Findings Absent posterior tibial pulse: bilateral Advanced trophic changes as evidenced by any three of the following: decreased hair growth, nail changes (thickening) and skin texture (thin or shiny) Absent dorsalis pedis pulse: bilateral Class C Findings Claudication: No Temperature changes: Yes Edema: Yes Nail debridement paresthesia (abnormal spontaneous sensations in the feet): Yes Burning: No Qualifies If: Qualifiers If:: A patient qualifies for nail debridement if they have: 1 class A finding (Q7) 2 class B findings (Q8) OR 1 class B & 2 class C findings in addition to a primary condition (Q9) Nail Procedure Nail Procedure Time out: Yes Nail procedure: other (Debridement) Number of affected nails: 10 Location (toes): left and right Procedure successful: Yes Patient tolerated procedure: well and no complications Additional comments: Toenails 1 through 10 were sharply debrided with nail nippers without incident. The patient tolerated the procedure well. There was minor bleeding noted from the nailbed of the fourth toe postprocedure and Band-Aid was applied.
== END 2024-11-10 16:06 | disposition home or self-care (01) ==
LOC: WC 16:06
PROVIDERS: PCP Family Medicine; Visit Provider Physician Assistant
DX: B35.1 Tinea unguium (principal); R09.89 Other specified symptoms and signs involving the circulatory and respiratory systems; E11.40 Type 2 diabetes mellitus with diabetic neuropathy, unspecified; R26.89 Other abnormalities of gait and mobility; L60.8 Other nail disorders
CPT/HCPCS: 11721

== ENCOUNTER 2025-01-25 13:03 | Outpatient (OUT) | payer MEDICARE, SELFPAY ==
--- OUTSIDE RECORDS SUMMARY | 2024-03-29 09:20 | XMS_ITS ---
Author Organization The [facility] in [place] Address [address] [place] [address] Care Team Providers Care Commercial Airline Pilot Name Role Phone Olivia Cazares Primary Care Provider Annie Alcantara Unavailable [phone] REASON FOR VISIT nail care Medications Medication SIG (Take, Route, Frequency, Duration) Notes Start Date End Date Status Rosuvastatin Calcium 5 MG 1 tablet Orall y Once a day Active Potassium Chloride 10 MEQ/100ML as directed Intravenous Acti ve oxyBUTYnin Chloride 5 MG 1 tablet Orally Once a day Active Gabapentin 300 MG 1 capsule Orally Twi ce a Day Active Vitamin D3 125 MCG (5000 UT) 1 capsule Orally Once a day Active Aspirin 81 MG 1 tablet Orally Once a day Active Furosemide 40 MG 1 tablet Orally Once a day Active Colace Active Clopidogrel Bisulfate 75 MG 1 tablet Ora lly Once a day Active Carvedilol 25 MG 1 tablet with food O rally Twice a day 11/27/2023 Active Allopurinol 300 MG 1 tablet Orally Once a day Active Social History Tobacco Use: Social History Observation Description Date Details (start date - stop date) Former Smoker NA - NA Tobacco Control (Standard) Question Answer Notes Tobacco use: Former smoker Vital Signs Weight 165 lbs 03/29/2024 Height 59 in 03/29/2024 Temperature 98.2 degrees Fahrenheit 03/29/20 24 Heart Rate 75 /min 03/29/2024 BMI 33.32 kg/m2 03/29/2024 Oximetry 99 % 03/29/2024 Encounters Encounter Location Date Provider Diagnosis [facility] (PODIATRY) [address] [place] [address] [place] [address] 03/29/2024 Annie Gasca Type 2 diabetes mellitus with other specified complication E11.69 ; Pain in left toe(s) M79.675 and Pain in right toe(s) M79.674 Assessments Encounter Date Diagnosis (ICD Code) Assessment Notes Treatment Notes Treatment Clinical Notes Section Notes 03/29/2024 Type 2 diabetes mellitus with other specified complication (ICD-10 - E11.69) 03/29/2024 Pain in left toe(s) (ICD-10 - M79.675) 03/29/2024 Pain in right toe(s) (ICD-10 - M79.674) Plan Of Treatment No Information Progress Notes * Sheldon CMOB:[birth year] (78 yo F)Acc No.[id number]:03/29/2024 Nurse Visit Patient: Lexi SALAZAR Provider: Azul Gasca PA-C :1945 A ge:78 Y S ex:Female Date:03/29/2024 Address:[address] [place], [place] [address] Pcp:Olivia Cazares Check In:01:10 PM ESTCheck O ut:02:22 PM EST Subjective: * Chief Complaints: * N ail care * HPI: G eneral: Patient in office today for nail care. Nails were trimmed and filed today to her liking w/o incident. * Active Problem List I73.9 Peripheral vascular disease, unspecified Modified On:11/27/2023W/U Status:confirmed E11.69 Type 2 diabetes cheyenne itus with other specified complication Modified On:11/27/2023W/U Status:confirmed * Medical History: * Surgical History: h eart bypass * Hospitalization/Major Diagno stic Procedure: N o Hospitalization History. * Family History: N o Family History documented.. * Social History: T obacco Use: T obacco Control (Standard) T obacco use: F ormer smoker * Medications: T akingAllopurinol 300 MG Tablet 1 tablet Orally Once a day Aspirin 81 MG Tablet Chewable 1 tablet Orally Once a day Carvedilol 25 MG Tablet 1 tablet with food Orally Twice a day Clopidogrel Bisulfate 75 MG Tablet 1 tablet Orally Once a day Colace Furosemide 40 MG Tablet 1 tablet Orally Once a day Gabapentin 300 MG Capsule 1 capsule Orally Twice a Day oxyBUTYnin Chloride 5 MG Tablet 1 tablet Orally Once a day Potassium Chloride 10 MEQ/100ML Solution as directed Intravenous Rosuvastatin Calcium 5 MG Tablet 1 tablet Orally Once a day Vitamin D3 125 MCG (5000 UT) Capsule 1 capsule Orally Once a day Taking Allopurinol 300 MG Tablet 1 tablet Orally Once a day Taking Aspirin 81 MG Tablet Chewable 1 tablet Orally Once a day Taking Carvedilol 25 MG Tablet 1 tablet with food Orally Twice a day Taking Clopidogrel Bisulfate 75 MG Tablet 1 tablet Orally Once a day Taking Colace Taking Furosemide 40 MG Tablet 1 tablet Orally Once a day Taking Gabapentin 300 MG Capsule 1 capsule Orally Twice a Day Taking oxyBUTYnin Chloride 5 MG Tablet 1 tablet Orally Once a day Taking Potassium Chloride 10 MEQ/100ML Solution as directed Intravenous Taking Rosuvastatin Calcium 5 MG Tablet 1 tablet Orally Once a day Taking Vitamin D3 125 MCG (5000 UT) Capsule 1 capsule Orally Once a day * Allergies: n o[Allergies Verified] Objective: * Vitals: W t:165lbs, Ht: 59 in, Temp:98.2F, HR:75/min, BMI:33.32Index, Pain scale:01-10, Oxygen sat %:99%, Ht-cm: 149.86 cm, Wt-k.84 kg. Assessment: * Assessment: 1. T ype 2 diabetes mellitus with other specified complication - E11.69 (Primary) 2 . P ain in left toe(s) - M79.675 3 . P ain in right toe(s) - M79.674 Plan: * Treatment: * Procedure Codes: 9 9211 OFFICEOUTPT VISIT, EST * * Sign off status: Completed Visit Status: C HK (Check Out) true * Provider: Azul Gasca PA-C Date: 0 03/29/[address] [facility]Trina/Maryjanesmitting on: 0 01/25/2025 01:06 PM EDT History and Physical Notes * HPI (History of Present Illness) Category Sub-Category Detail Notes Category Not es General Patient in offi ce today for nail care. Nails were trimmed and filed today to her liking w/o incident.
--- OUTSIDE RECORDS SUMMARY | 2024-08-02 11:30 | XMS_ITS ---
Author Organization [facility] in [place] Address [address] [place] [address] Care Team Providers Care Dural Mechanic Name Role Phone Olivia Cazares Primary Care Provider Annie Alcantara Unavailable [phone] Allergies No Known Allergies REASON FOR VISIT Nail Care Medications Medication SIG (Take, Route, Frequency, Duration) Notes Start Date End Date Status Gabapentin 300 MG 1 capsule Orally Twi ce a Day Active Vitamin D3 125 MCG (5000 UT) 1 capsule Orally Once a day Active oxyBUTYnin Chloride 5 MG 1 tablet Orally Once a day Active Rosuvastatin Calcium 5 MG 1 tablet Orall y Once a day Active Potassium Chloride 10 MEQ/100ML as directed Intravenous Acti ve Colace Active Clopidogrel Bisulfate 75 MG 1 tablet Ora lly Once a day Active Furosemide 40 MG 1 tablet Orally Once a day Active Carvedilol 25 MG 1 tablet with food O rally Twice a day 11/27/2023 Active Aspirin 81 MG 1 tablet Orally Once a day Active Allopurinol 300 MG 1 tablet Orally [...] Encounters Encounter Location Date Provider Diagnosis [facility] (PODIATRY) [address] [place] [address] [place] [address] 08/02/2024 Annie Gasca Type 2 diabetes mellitus with other specified complication E11.69 ; Pain in left toe(s) M79.675 and Peripheral vascular disease, unspecified I73.9 Assessments Encounter Date Diagnosis (ICD Code) Assessment Notes Treatment Notes Treatment Clinical Notes Section Notes 08/02/2024 Type 2 diabetes mellitus with other specified complication (ICD-10 - E11.69) 08/02/2024 Pain in left toe(s) (ICD-10 - M79.675) 08/02/2024 Peripheral vascular disease, unspecified (ICD-10 - I73.9) Plan Of Treatment No Information Progress Notes * LUCRECIALATRICIAMaría MARTINEZra LDOB:1944 (79 yo F)Acc No.[id number]:08/02/2024 UNLOCKED PROGRESS NOTE Nurse Visit Patient: Lexi SALAZAR Provider: Azul Gasca PA-C :1945 A ge:79 Y S ex:Female Date:08/02/2024 Address:[address] [place], [place] [id number] Pcp:Olivia Cazares Check In:03:17 PM ESTCheck O ut:03:39 PM EST Subjective: * Chief Complaints: * 1 . Nail Care. * HPI: G eneral: Nails 1-10 were trimmed and filed down to patients liking. No area of concern to toes. * Medical History: A rthritis, Diabetes, Heart disease, Peripheral vascular disease. * Surgical History: h eart bypass . * Family History: N o Family History documented.. * Social History: T obacco Use: T obacco Control (Standard) T obacco use: F ormer smoker * Medications: T aking Allopurinol 300 [...] with other specified complication - E11.69 (Primary) ?2. P ain in left toe(s) - M79.675 3 . P eripheral vascular disease, unspecified - I73.9 Plan: * Treatment: * * Electronic signature of Marcie Gasca PA-C on 01/25/2025 at 01:07 PM EDT Sign off status: Pending Visit Status: Gail RUIZ (Check Out) * Provider: Azul Gasca PA-C Date: 0 08/02/2024 Generated for Elham espinosa/Trina/Ironitting on: 0 01/25/2025 01:07 PM EDT History and Physical Notes * HPI (History of Present Illness) Category Sub-Category Detail Notes Category Not es General Nails 1-10 were trimmed and filed down to patients liking. No area of concern to toes.
--- OUTSIDE RECORDS SUMMARY | 2024-10-25 11:00 | XMS_ITS ---
Author Organization [facility] in [place] Address [address] [place] [address] Care Team Providers Care Java Software Architect Name Role Phone Olivia Cazares Primary Care Provider Annie Alcantara Unavailable [phone] REASON FOR VISIT Nail Care Encounters Encounter Location Date Provider Diagnosis [facility] (PODIATRY) [address] [place] [address] [place] [address] 10/25/2024 Annie Gasca Plan Of Treatment No Information Progress Notes * Lexi CM LDOB:1944 (79 yo F)Acc No.[id number]:10/25/2024 UNLOCKED PROGRESS NOTE Nurse Visit Patient: Lexi SALAZAR Provider: Azul Gasca PA-C :1945 A ge:79 Y S ex:Female Date:10/25/2024 Address:[address] [place], [place] [id number] Pcp:Olivia Cazares Subjective: * Chief Complaints: * 1 . Nail Care. * Medical History: Objective: * Vitals: Assessment: Plan: * Treatment: * * Electronic signature of Marcie Gasca PA-C on 01/25/2025 at 01:05 PM EDT Sign off status: Pending Visit Status: O FF CANC (OFFICE CANCEL) * Provider: Azul Gasca PA-C Date: 0 10/25/2024 Generated for Printi ng/Faxing/eTransmitting on: 0 01/25/2025 01:05 PM EDT
--- OUTSIDE RECORDS SUMMARY | 2025-01-11 11:58 | XMS_ITS | Continuity of Care Document ---
Author Organization [facility] Address [address] [place] [address] Phone Care Team Providers Care Vacuum Pan Operator Name Role Phone Olivia Cazares MD Primary Care Provider Yaniv Natarajan MD Attending Provider Olivia Cazares MD Attending Provider Care Teams Patient Care Team Team Status: Active Member Role Status Dates Olivia Cazares MD Primary Care Provider Active Visit Care Team Team Status: Inactive Member Role Status Dates Olivia Cazares MD Primary Care Provider Active Start: October 22, 2024 End: October 22, 2024 Yaniv Natarajan MD Attending Provider Active St art: October 22, 2024 End: October 22, 2024 Visit Care Team Team Status: Inactive Member Role Status Dates Olivia Cazares MD Primary Care Provider Active Start: November 15, 2024 End: November 15, 2024 Olivia Cazares MD Attending Provider Active St art: November 15, 2024 End: November 15, 2024 Visit Care Team Team Status: Inactive Member Role Status Dates Olivia Cazares MD Primary Care Provider Active Start: November 15, 2024 End: November 15, 2024 Olivia Cazares MD Attending Provider Active St art: November 15, 2024 End: November 15, 2024 Patient Care Team Team Status: Inactive Member Role Status Dates Olivia Cazares MD Primary Care Provider Active Start: January 11, 2025 End: January 11, 2025 Olivia Cazares MD Attending Provider Active St art: January 11, 2025 End: January 11, 2025 Chief Complaint and Reason for Visit Chief Complaint Admit Date Bilateral Hydronephrosis, Ureteral Stric tures October 22, 2024 5:58am UA:Tired November 15, 2024 3:16pm N39.0 A49.9 November 15, 2024 3:30pm A1C January 11, 2025 3:11p m Reason for Visit Admit Date UTI (urinary tract infection), bacterial November 15, 2024 3:16pm Reason for Referral Referring Provider Name Referring Provider Address Referring Provider Phone Referral Date Requested Appointment Date Referral Reason Yaniv Delgado , Mirian [address] [place] [address] Work Phone: You should certainly finish your antifungal therapy due to the yeast infection. Please lucian l my office to make arrangements for your next scope and stent change in about 5 months. I did not provide additional antibiotics other than that provided during your procedure. Allergies, Adverse Reactions, Alerts Allergen Type Severity Reaction Last Updated Verified Status Comments blue dye Allergy Moderate Nausea January 11, 2025 3:23pm Yes Active dye used with xray causes patient to vomit semaglutide Allergy Moderate nausea, vomiting January 11, 2025 3:23pm Yes Active adhesive tape Allergy Unknown rash January 11, 2025 3:23pm Yes Active Social History Smoking Status Status Start Date End Date Date of Observa tion Ex-smoker (finding) October 222024 6:33am Observation Status Observation Response Date of Response Legal Sex Female (finding) Sex Assigned At Female [id number] Family History Relationship Condition Age at Onset Recorded Date/T angelina father Coronary artery disease Unknown mother Hypertension Unknown brother Malignant neoplasm of kidney Unknown Problems Active Problems Medical Problem Onset Date Status UTI (urinary tract infection) Unknown Ac tive Other low back pain Unknown Active 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 Unknown Active [facility] drug therapy Unknown Active Primary osteoarthritis of left hip Unknown Active Type 2 diabetes mellitus with hyperglycemia Unkn own Active Secondary hyperparathyroidism Unknown Ac tive Sepsis due to urinary tract infection Unknown Active Gout Unknown Active Chronic pain Unknown Active OAB (overactive bladder) Unknown Active Heart failure, unspecified Unknown Activ e CKD (chronic kidney disease) stage 4, GFR 15-29 ml/min Unknown Active CAD (coronary artery disease) Unknown Ac tive Osteoarthritis of left hip Unknown Activ e Anemia Unknown Active Hypertensive chronic kidney disease with stage 1 through stage 4 chronic kidney disease, or unspecified chronic kidney disease Unknown Active Hyperlipidemia Unknown Active Uncontrolled diabetes mellitus Unknown A ctive Proteinuria Unknown Active CKD stage 4 due to type 2 diabetes mellitus Unkn own Active Preoperative examination Unknown Active Hydroureter Unknown Active Urinary obstruction, unspecified Unknown Active Osteoporosis without current pathological fractu re Unknown Active Weakness Unknown Active Bilateral hydronephrosis Unknown Active PAD (peripheral artery disease) Unknown Active Lumbar pain Unknown Active Pain in left hip Unknown Active UTI (urinary tract infection), bacterial Unknown Active History of coronary artery bypass graft Unknown Active Anemia of renal disease Unknown Active Hypertension Unknown Active Inactive/Resolved Problems Medical Problem Onset Date Status Acute kidney injury Unknown Resolved Medications Medication Status Dose Units Route Directions Qty Days St art Date Stop Date End Date Instructions Adherence Oxybutynin Chloride 5 mg tablet Discont inued 5 MG PO Daily September 12, 2023 1:00am November 27, 2023 2:32p m Potassium Chloride 10 mEq capsule, extended release Discont inued 10 MEQ PO Daily September 12, 2023 1:00am Janua ry 2024 12:31 pm Ferrous Sulfate (Iron (Ferrous Sulfate)) 325 mg (65 mg iron) tablet Discont inued 325 MG PO tid 90 December 05, 2023 12:00a m January 25, 2024 10:20 am Ascorbic Acid (Vitamin C) (Vitamin C) 500 mg tablet Discont inued 500 MG PO daily December 05, 2023 12:00a m Sushilus t 2023 12:45 pm Ondansetron Hcl 4 mg tablet Discont inued 4 MG PO Q8H as needed for Nausea December 05, 2023 12:00a m January 12, 2024 4:21p m Oxybutynin Chloride 15 mg tablet extended release 24hr Discont inued 0 .ROUTE .COMPLEX January 01, 2024 8:42am January 12, 2024 4:21p m TAKE ONE TABLET BY MOUTH DAILY Gabapentin 300 mg capsule Discont inued 0 .ROUTE .COMPLEX February 02, 2024 9:04am Septe [facility] 2023 2:28p m TAKE ONE CAPSULE BY MOUTH TWICE A DAY Ascorbic Acid (Vitamin C) 500 mg tablet Discont inued 0 .ROUTE .COMPLEX March 01, 2024 12:45p m October 22, 2024 7:03a m TAKE ONE TABLET BY MOUTH ONCE DAILY Ferrous Sulfate (Iron (Ferrous Sulfate)) 325 mg (65 mg iron) tablet Discont inued 325 MG PO every other day 90 March 03, 2024 2:46pm Novem shanita 2023 8:26a m Oxybutynin Chloride 15 mg tablet extended release 24hr Discont inued 15 MG PO Daily 90 Septem 2023 8:19am ry 2024 11:36 am Gabapentin 300 mg capsule Discont inued 0 .ROUTE .COMPLEX 60 Octobe r 2023 8:27am 2024 11:36 am TAKE ONE CAPSULE BY MOUTH TWICE A DAY Insulin Glargine (Basaglar Kwikpen U-100 Insulin) 100 unit/mL (3 mL) insulin pen Discont inued 60 UNIT SUBCUT Every evening 54 90 Dece er 2023 3:24pm October 22, 2024 7:06a m Oxybutynin Chloride 15 mg tablet extended release 24hr Discont inued 0 .ROUTE .COMPLEX 30 2024 11:36a m October 05, 2024 8:22a m TAKE ONE TABLET BY MOUTH ONCE DAILY Gabapentin 300 mg capsule Discont inued 0 .ROUTE .COMPLEX 60 2024 11:36a m [facility] 1:39p m TAKE ONE CAPSULE BY MOUTH TWICE A DAY Gabapentin 300 mg capsule Discont inued 0 .ROUTE .COMPLEX 60 2024 1:39pm November 01, 2024 8:27a m TAKE ONE CAPSULE BY MOUTH TWICE A DAY Insulin Aspart U-100 (Novolog Flexpen U-100 Insulin) 100 unit/mL (3 mL) insulin pen Discont inued 0 UNIT SUBCUT As Directed as needed for Type 2 diabetes Protocol: *NOT APPROPRIATE TO USE SCALE IF LESS THAN 3 HOURS SINCE PREVIOUS MEAL AND SCALE DOSE* Condition: = Dose/Route: = Instruction s: = Condition: Fingerstick Blood Glucose Dose/Route: Insulin Units Condition: mg/dl Dose/Route: 1 unit Condition: mg/dl Dose/Route: 2 units Condition: mg/dl Dose/Route: 3 units Condition: mg/dl Dose/Route: 4 units Condition: mg/dl Dose/Route: 5 units Condition: mg/dl Dose/Route: 6 units Condition: mg/dl Dose/Route: 7 units Condition: mg/dl Dose/Route: 8 units Condition: mg/dl Dose/Route: 9 units Condition: mg/dl Dose/Route: 10 units Dose/Route: 11 units Condition: Greater than or = 400 mg/dl Instruction s: Call Provider Condition: Custom Scale 1:___ Instruction s: GIVE 1 UNIT OF ASPART FOR EVERY ___MG GLUCOSE Instruction s: STARTING AT 150MG AT BG CHECKS October 14, 2024 9:51am October 14, 2024 10:47 am Please contact the information source for Protocol details. Insulin Aspart U-100 (Novolog Flexpen U-100 Insulin) 100 unit/mL (3 mL) insulin pen Active 1 slidin g scale dose SUBCUT As Directed as needed for Type 2 diabetes Protocol: *NOT APPROPRIATE TO USE SCALE IF LESS THAN 3 HOURS SINCE PREVIOUS MEAL AND SCALE DOSE* Condition: = Dose/Route: = Instruction s: = Condition: Fingerstick Blood Glucose Dose/Route: Insulin Units Condition: mg/dl Dose/Route: 1 unit Condition: mg/dl Dose/Route: 2 units Condition: mg/dl Dose/Route: 3 units Condition: mg/dl Dose/Route: 4 units Condition: mg/dl Dose/Route: 5 units Condition: mg/dl Dose/Route: 6 units Condition: mg/dl Dose/Route: 7 units Condition: mg/dl Dose/Route: 8 units Condition: mg/dl Dose/Route: 9 units Condition: mg/dl Dose/Route: 10 units Dose/Route: 11 units Condition: Greater than or = 400 mg/dl Instruction s: Call Provider Condition: Custom Scale 1:___ Instruction s: GIVE 1 UNIT OF ASPART FOR EVERY ___MG GLUCOSE Instruction s: STARTING AT 150MG AT BG CHECKS October 14, 2024 10:46a m Please contact the information source for Protocol details. Complies with drug therapy Gabapentin 300 mg capsule Discont inued 0 .ROUTE .COMPLEX 60 November 01, 2024 8:27am December 24, 2024 9:28a m TAKE ONE CAPSULE BY MOUTH TWICE A DAY Cholecalcif lexa (Vitamin D3) 125 mcg (5,000 unit) capsule Active 125 MCG PO .every other day November 10, 2024 11:53a m Complies with drug therapy Insulin Glargine (Lantus Solostar U-100 Insulin) 100 unit/mL (3 mL) insulin pen Active 55 UNIT SUBCUT Daily 49.5 December 03, 2024 12:00a m Complies with drug therapy Gabapentin 300 mg capsule Active 0 .ROUTE .COMPLEX December 24, 2024 9:28am TAKE ONE CAPSULE BY MOUTH TWICE A DAY Complies with drug therapy Atorvastati n 80 mg Tablet Discont inued 80 MG PO Daily Novemb er 2016 12:00a m Dece shanita 2016 4:33p m Insulin Glargine (Lantus) 100 unit/mL Solution Discont inued 40 UNITS SUBCUT Daily Novemb er 2016 12:00a m Dece shanita 2016 11:06 am Potassium Chloride 10 mEq Tablet Extended Release Discont inued 10 MEQ PO Daily Novemb er 2016 12:00a m Dece shanita 2016 11:05 am Clopidogrel (Plavix) 75 mg Tablet Active 75 MG PO Daily Novemb er 2016 12:00a m Complies with drug therapy Aspirin (Beth Low Dose Aspirin) 81 mg Tablet,Eloisa yed Release (Dr/Ec) Active 81 MG PO Daily Novemb er 2016 12:00a m Complies with drug therapy Vitamin B Complex Tablet Discont inued 1 TAB PO Daily Novemb er 2016 12:00a m 2018 7:44a m Allopurinol (Zyloprim) 300 mg Tablet Active 300 MG PO Daily Novemb er 2016 12:00a m Complies with drug therapy Furosemide (Lasix) 20 mg Tablet Discont inued 20 MG PO Daily as needed for Edema [facility] 2016 12:00a m January 12, 2024 4:18p m Gabapentin 100 mg Capsule Discont inued 200 MG PO Twice daily [facility] 2016 12:00a m [facility] 2016 11:51 am Lisinopril 2.5 mg Tablet Discont inued 2.5 MG PO Daily [facility] 2016 12:00a m 2018 7:43a m Insulin Aspart U-100 (Novolog Flexpen) 100 unit/mL Insulin Pen Discont inued 0 UNITS SUBCUT As Directed as needed for Hyperglycem ia Protocol: *NOT APPROPRIATE TO USE SCALE IF LESS THAN 3 HOURS SINCE PREVIOUS MEAL AND SCALE DOSE* Condition: = Dose/Route: = Instruction s: = Condition: Fingerstick Blood Glucose Dose/Route: Insulin Units Condition: mg/dl Dose/Route: 1 unit Condition: mg/dl Dose/Route: 2 units Condition: mg/dl Dose/Route: 3 units Condition: mg/dl Dose/Route: 4 units Condition: mg/dl Dose/Route: 5 units Condition: mg/dl Dose/Route: 6 units Condition: mg/dl Dose/Route: 7 units Condition: mg/dl Dose/Route: 8 units Condition: mg/dl Dose/Route: 9 units Condition: mg/dl Dose/Route: 10 units Dose/Route: 11 units Condition: Greater than or = 400 mg/dl Instruction s: Call Provider Condition: Custom Scale 1:___ Instruction s: GIVE 1 UNIT OF ASPART FOR EVERY ___MG GLUCOSE Instruction s: STARTING AT 150MG AT BG CHECKS [facility] 2016 12:00a m Dece 2016 11:06 am Please contact the information source for Protocol details. Metoprolol Tartrate 25 mg Tablet Discont inued 25 MG PO Twice daily [facility] 2016 12:00a m Dece 2016 4:33p m Ascorbic Acid (Vitamin C) (Vitamin C) 500 mg Tablet Discont inued 500 MG PO Daily [facility] 2016 12:00a m 2017 9:40a m Cholecalcif lexa (Vitamin D3) (Vitamin D3) 1,000 unit Capsule Discont inued 1000 UNITS PO Daily [facility] 2016 12:00a m [facility] shanita 2016 11:06 am Gabapentin 100 mg Capsule Discont inued 300 MG PO Daily [facility] 2016 12:00a m [facility] shanita 2016 11:51 am Carvedilol (Coreg) 12.5 mg Tablet Discont inued 25 MG PO Twice daily [facility] er 2016 1:00am 2018 1:13p m Spironolact one (Aldactone) 25 mg Tablet Discont inued 25 MG PO Every morning [facility] 2016 1:00am [facility]2023 4:27p m Nitroglycer in (Nitrostat) 0.4 mg Tablet, Sublingual Discont inued 0.4 MG SUBLIN GUAL Q5M as needed for Chest Pain [facility] 2016 1:00am [facility]2023 4:27p m Docusate Sodium (Colace) 100 mg Capsule Discont inued 100 MG PO Twice daily as needed for Constipatio n [facility] 2016 1:00am January 12, 2024 4:21p m Rosuvastati n (Crestor) 5 mg Tablet Active 5 MG PO Daily at bedtime [facility] 2016 1:00am Complies with drug therapy Insulin Glargine (Lantus U-100 Insulin) 100 unit/mL Solution Discont inued 40 UNIT SUBCUT Daily 0 [facility] 2016 11:05a m 2017 9:40a m Cholecalcif lexa (Vitamin D3) (Vitamin D3) 1,000 unit Capsule Discont inued 1000 UNIT PO Daily 0 [facility] 2016 11:05a m 2017 9:38a m Insulin Aspart U-100 (Novolog Flexpen U-100 Insulin) 100 unit/mL Insulin Pen Discont inued 0 UNIT SUBCUT As Directed as needed for Hyperglycem ia Protocol: *NOT APPROPRIATE TO USE SCALE IF LESS THAN 3 HOURS SINCE PREVIOUS MEAL AND SCALE DOSE* Condition: = Dose/Route: = Instruction s: = Condition: Fingerstick Blood Glucose Dose/Route: Insulin Units Condition: mg/dl Dose/Route: 1 unit Condition: mg/dl Dose/Route: 2 units Condition: mg/dl Dose/Route: 3 units Condition: mg/dl Dose/Route: 4 units Condition: mg/dl Dose/Route: 5 units Condition: mg/dl Dose/Route: 6 units Condition: mg/dl Dose/Route: 7 units Condition: mg/dl Dose/Route: 8 units Condition: mg/dl Dose/Route: 9 units Condition: mg/dl Dose/Route: 10 units Dose/Route: 11 units Condition: Greater than or = 400 mg/dl Instruction s: Call Provider Condition: Custom Scale 1:___ Instruction s: GIVE 1 UNIT OF ASPART FOR EVERY ___MG GLUCOSE Instruction s: STARTING AT 150MG AT BG CHECKS 0 [facility] er 2016 11:05a m 2017 9:40a m Please contact the information source for Protocol details. Gabapentin 300 mg capsule Discont inued 300 MG PO Twice daily 60 30 [facility] 2016 1:00am 2018 1:00a m September 11, 2017 8:48a m Docusate Sodium (Colace) 100 mg capsule Active 100 MG PO Bedtime January 12, 2024 4:15pm Complies with drug therapy Ferrous Sulfate (Iron (Ferrous Sulfate)) 325 mg (65 mg iron) tablet Discont inued 325 MG PO every other day 90 30 January 25, 2024 10:20a m Augus t 2023 2:46p m Ferrous Sulfate (Ferosul) 325 mg (65 mg iron) tablet Discont inued 325 MG PO .Every other day [facility] 2023 1:00am October 22, 2024 7:04a m Ascorbic Acid (Vitamin C) (Vitamin C) 1,000 mg Tablet Discont inued 1000 MG PO Daily 2017 1:00am September 11, 2017 8:53a m Acetaminoph en (Tylenol Arthritis Pain) 650 mg Tablet Extended Release Discont inued 1300 MG PO Every evening as needed for Pain 2017 1:00am September 11, 2017 8:44a m Cholecalcif lexa (Vitamin D3) (Vitamin D3) 5,000 unit Tablet Discont inued 5000 MG PO Daily 2017 1:00am September 11, 2017 8:54a m Insulin Glargine (Lantus U-100 Insulin) 100 unit/mL solution Discont inued 40 UNIT SUBCUT Daily at bedtime 2017 9:40am September 11, 2017 9:05a m Insulin Aspart U-100 (Novolog Flexpen U-100 Insulin) 100 unit/mL insulin pen Discont inued 0 UNIT SUBCUT As Directed Protocol: *NOT APPROPRIATE TO USE SCALE IF LESS THAN 3 HOURS SINCE PREVIOUS MEAL AND SCALE DOSE* Condition: = Dose/Route: = Instruction s: = Condition: Fingerstick Blood Glucose Dose/Route: Insulin Units Condition: mg/dl Dose/Route: 1 unit Condition: mg/dl Dose/Route: 2 units Condition: mg/dl Dose/Route: 3 units Condition: mg/dl Dose/Route: 4 units Condition: mg/dl Dose/Route: 5 units Condition: mg/dl Dose/Route: 6 units Condition: mg/dl Dose/Route: 7 units Condition: mg/dl Dose/Route: 8 units Condition: mg/dl Dose/Route: 9 units Condition: mg/dl Dose/Route: 10 units Dose/Route: 11 units Condition: Greater than or = 400 mg/dl Instruction s: Call Provider Condition: Custom Scale 1:___ Instruction s: GIVE 1 UNIT OF ASPART FOR EVERY ___MG GLUCOSE Instruction s: STARTING AT 150MG AT BG CHECKS 2017 9:40am 2024 12:08 pm Please contact the information source for Protocol details. Insulin Aspart U-100 (Novolog Flexpen U-100 Insulin) 100 unit/mL (3 mL) insulin pen Discont inued 0 UNIT SUBCUT As Directed as needed Protocol: *NOT APPROPRIATE TO USE SCALE IF LESS THAN 3 HOURS SINCE PREVIOUS MEAL AND SCALE DOSE* Condition: = Dose/Route: = Instruction s: = Condition: Fingerstick Blood Glucose Dose/Route: Insulin Units Condition: mg/dl Dose/Route: 1 unit Condition: mg/dl Dose/Route: 2 units Condition: mg/dl Dose/Route: 3 units Condition: mg/dl Dose/Route: 4 units Condition: mg/dl Dose/Route: 5 units Condition: mg/dl Dose/Route: 6 units Condition: mg/dl Dose/Route: 7 units Condition: mg/dl Dose/Route: 8 units Condition: mg/dl Dose/Route: 9 units Condition: mg/dl Dose/Route: 10 units Dose/Route: 11 units Condition: Greater than or = 400 mg/dl Instruction s: Call Provider Condition: Custom Scale 1:___ Instruction s: GIVE 1 UNIT OF ASPART FOR EVERY ___MG GLUCOSE Instruction s: STARTING AT 150MG AT BG CHECKS 2024 12:07p m October 14, 2024 9:52a m Please contact the information source for Protocol details. Ascorbic Acid (Vitamin C) (Vitamin C) 500 mg Capsule, Extended Release Discont inued 500 MG PO Daily September 11, 2017 1:00am u 2023 4:26p m Gabapentin 100 mg Capsule Discont inued 300 MG PO Twice daily September 11, 2017 1:00am February 02, 2024 9:04a m Cholecalcif lexa (Vitamin D3) (Vitamin D3) 1,000 unit Capsule Discont inued 1000 UNIT PO Daily September 11, 2017 1:00am January 12, 2024 4:16p m Insulin Glargine (Basaglar Kwikpen U-100 Insulin) 100 unit/mL (3 mL) Insulin Pen Discont inued 42 UNIT SUBCUT Every evening September 11, 2017 1:00am January 12, 2024 4:21p m Insulin Glargine (Basaglar Kwikpen U-100 Insulin) 100 unit/mL (3 mL) insulin pen Discont inued 50 UNIT SUBCUT Every evening January 12, 2024 4:15pm Decem shanita 2023 12:29 pm Losartan 25 mg tablet Discont inued 25 MG PO Daily at bedtime 2018 1:00am Febru kaitlin 2023 4:26p m Acetaminoph en (Tylenol) 325 mg Tablet Discont inued 650 MG PO Daily at bedtime 2018 1:00am January 12, 2024 4:14p m Carvedilol 25 mg tablet Active 25 MG PO Twice daily 2018 1:00am Complies with drug therapy Tramadol 50 mg tablet Discont inued 50 MG PO EVERY 4-6 HOURS as needed for pain 2018 1:00am Julua ry 2018 1:00a m Julua ry 2018 1:02a m Ciprofloxac in Hcl (Cipro) 500 mg tablet Discont inued 500 MG PO Q12H er 2023 1:00am Dece shanita 2023 11:58 am administer dose at least 2 hrs before/6 hrs after dairy products, calcium, zinc, and/or iron-containi ng products Insulin Glargine (Basaglar Kwikpen U-100 Insulin) 100 unit/mL (3 mL) insulin pen Discont inued 50 UNIT SUBCUT Every evening October 22, 2024 12:00a m December 03, 2024 12:24 pm Oxybutynin Chloride 10 mg tablet extended release 24hr Discont inued 10 MG PO Daily November 27, 2023 12:00a m December 11, 2023 4:20p m Acetaminoph en 650 mg tablet extended release Active 1300 MG PO Bedtime January 12, 2024 12:00a m Complies with drug therapy Cholecalcif lexa (Vitamin D3) 125 mcg (5,000 unit) capsule Discont inued 125 MCG PO Daily January 12, 2024 12:00a m Novem shanita 2023 11:18 am Furosemide 40 mg tablet Active 40 MG PO Daily January 12, 2024 12:00a m Complies with drug therapy Oxybutynin Chloride 15 mg tablet extended release 24hr Discont inued 15 MG PO Daily January 12, 2024 4:20pm Augus t 2023 2:07p m Cholecalcif lexa (Vitamin D3) 125 mcg (5,000 unit) capsule Discont inued 125 MCG PO .every other day Novemb er 2023 11:18a m November 10, 2024 11:53 am Oxybutynin Chloride 15 mg tablet extended release 24hr Discont inued 15 MG PO Daily March 05, 2024 2:06pm Septe mber 2023 8:20a m Lisinopril 5 mg tablet Discont inued 5 MG PO Daily 2024 1:00am October 22, 2024 7:06a m Ciprofloxac in Hcl 250 mg tablet Discont inued 250 MG PO Daily 5 shanita 2023 12:00a m Novem shanita 2023 10:57 am Sulfamethox azole-Trime thoprim 800-160 mg tablet Discont inued 1 TAB PO Twice daily October 23, 2023 12:00a m November 27, 2023 2:06p m Oxybutynin Chloride 15 mg tablet extended release 24hr Discont inued 15 MG PO Daily December 11, 2023 12:00a m January 01, 2024 8:43a m Gabapentin 300 mg capsule Discont inued 300 MG PO Twice daily Marem shanita 2023 2:26pm Octob er 2023 8:27a m Ciprofloxac in Hcl 250 mg tablet Discont inued 250 MG PO Daily 5 Novemb er 2023 1:24pm Novem shanita 2023 8:25a m Insulin Glargine (Basaglar Kwikpen U-100 Insulin) 100 unit/mL (3 mL) insulin pen Discont inued 60 UNIT SUBCUT Every evening 15 Decemb er 2023 12:28p m Decem shanita 2023 3:24p m Ciprofloxac in Hcl 250 mg tablet Discont inued 250 MG PO Daily November 15, 2024 12:00a m January 11, 2025 3:51p m Immunizations Immunization Event Date Not Given Reason Dose Number Web Interface Developer Lot Number Vaccine Information Statement (VIS) Detail Administration Location COVID-19 mRNA, Comirnaty (FreshPlanet) April 13, 2021 COVID-19 mRNA, Comirnaty (Pfizer) August 30, 2020 COVID-19 mRNA, Comirnaty ([employer]Planet) August 09, 2020 COVID-19 mRNA Bivalent Booster ([employer]et) June 17, 2022 Medical Equipment Device Date Implanted Date Explanted Device Deta ils CL STENT XIENCE ALP 2.25 X 15 June 24, 2017 CL STENT XIENCE ALP 2.5 X 38 June 24, 2017 CL STENT XIENCE ALP 3.0 X 18 June 24, 2017 STENT PALMAZ BLUE 7 X 24 135CM September 11, 2017 Polymeric ureteral stent October 22, 2024 INEZ: [id number] Issuing Agency: [facility] Device Id: [id number] Expiration Date: 2027-07-25 Lot Number: [id number] Polymeric ureteral stent October 22, 2024 INEZ: [id number] Issuing Agency: [facility] Device Id: [id number] Expiration Date: 2028-05-21 Lot Number: [id number] GRAFT HEMASHIELD [id number] July 20, 2018 IR STENT SMART 9 X 40 120 CM July 20, 2018 Polymeric ureteral stent January 23, 2024 2024 INEZ: [id number] Issuing Agency: [facility] Device Id: [id number] Expiration Date: 2027-12-26 Lot Number: [id number] Polymeric ureteral stent 2024 October 22, 2024 INEZ: [id number] Issuing Agency: [facility] Device Id: [id number] Expiration Date: 2028-05-01 Lot Number: [id number] Polymeric ureteral stent 2024 October 22, 2024 INEZ: [id number] Issuing Agency: [facility] Device Id: [id number] Expiration Date: 2028-05-01 Lot Number: [id number] Procedures Procedure Date Performed Status Urine Culture November 15, 2024 completed XR KUB October 22, 2024 6:14am complete d XR KUB October 22, 2024 12:00am complet ed OR Cysto/Retro/Stent/Stone/H olmium Laser (Bilateral) October 22, 2024 7:30am completed Relevant Diagnostic Tests and/or Laboratory Data Laboratory Results Test Collection Date/Time Result Date/Time Result Interpretation Reference Range Result Comment Performing Site Urine Color November 15, 2024 3:49pm November 15, 2024 3:52pm Yellow Urine Appearan ce November 15, 2024 3:49pm November 15, 2024 3:52pm cloudy Urine Specific [place] November 15, 2024 3:49pm November 15, 2024 3:52pm 1.005 Urine pH November 15, 2024 3:49pm November 15, 2024 3:52pm 6.5 Urine Leukocyt e Esterase November 15, 2024 3:49pm November 15, 2024 3:52pm +++ Urine Nitrite November 15, 2024 3:49pm November 15, 2024 3:52pm Negative Urine Protein November 15, 2024 3:49pm November 15, 2024 3:52pm +++ Urine Glucose (UA) November 15, 2024 3:49pm November 15, 2024 3:52pm negative Urine Ketones November 15, 2024 3:49pm November 15, 2024 3:52pm negative Urine Urobilin ogen November 15, 2024 3:49pm November 15, 2024 3:52pm 0.2 Urine Bilirubi n November 15, 2024 3:49pm November 15, 2024 3:52pm negative Urine Occult Blood November 15, 2024 3:49pm November 15, 2024 3:52pm ++ Bedside Glucose October 22, 2024 9:47am October 22, 2024 9:53am 172 mg/dL Random Glucose Reference Range is dependent on time and content of last meal. Glucose of more than 200 mg/dL in a nonstressed , ambulatory subject supports the diagnosis of Diabetes Mellitus. Point of Care testing Bedside Glucose Comment October 22, 2024 9:47am October 22, 2024 9:53am Glu2: cleaned meter Point of Care testing Bedside Glucose #2 Comment October 22, 2024 6:57am October 22, 2024 7:03am Cleaned meter Point of Care testing Microbiology Results Procedure Source Result Collection Date/Time Result Date/Time Result Comment Performing Site Urine Culture Urine 2 Days November 15, 2024 3:30pm November 17, 2024 9:20am [facility] [id number] [address] [place] [address] Diagnostic Imaging Reports Author Earnest Iraheta [facility] Authored October 22, 2024 8:5 4am Report Dictated Date/Time Dictated By Status Radiology Report October 22, 2024 8:54am Earnest Iraheta Jr DO completed [facility] [place] [id number] XRay Report Signed Patient: Lexi Cm MR#: [id number] : 1945 Acct:[id number] Age/Sex: 79 / F ADM Date: 5 Loc: [place] Room: Type: [facility] Attending Dr: Yaniv Natarajan MD Copies to: Yaniv Natarajan MD~ Ordering Provider: Yaniv Natarajan MD Date of Service: 10/22/24 XR/XR KUB: Pre Op KUB: CLINICAL INFORMATION: Preop. Hydronephrosis. COMPARISON: Intraoperative study 2024 FINDINGS: Bilateral double-J ureteral stents are identified. Presumed vascular calcifications are seen projecting over the renal shadows. No definitive ureteral calculus is seen. Presumed phleboliths are seen within the pelvis. No bowel obstruction or free air. Osseous structures demonstrate degenerative change. XR/XR KUB IMPRESSION: DOUBLE J URETERAL STENTS ARE SEEN BILATERALLY WITHOUT DEFINITIVE URINARY TRACT CALCULUS. Impression dictated by: Earnest Iraheta Jr., D.OPaul10/22/2024 8:55 AM Dictation Location: [place] [address] Transcribed By: [facility] 10/22/24 0855 Dictated By: Earnest Iraheta Jr, DO 10/22/24 0854 Signed By: <Electronically signed by Earnest Iraheta Jr, DO in OV> 10/22/24 0855 Author Earnest Iraheta [facility] Authored October 22, 2024 11: 12am Report Dictated Date/Time Dictated By Status Radiology Report October 22, 2024 11:12am Earnest nichols Jr DO completed [facility] [place] [address] [place] [address] XRay Report Signed Patient: Lexi Cm MR#: [id number] : 1945 Acct:[id number] Age/Sex: 79 / F ADM Date: 5 Loc: SD Room: Type: [facility] Attending Dr: Yaniv Natarajan MD Copies to: Yaniv Natarajan MD~ Ordering Provider: Yaniv Natarajan MD Date of Service: 10/22/24 XR/XR KUB: STENT CHANGE Intraoperative study. Reason for exam: Stent exchange. Findings: 5 images were obtained intraoperatively. Ureteral stents were exchanged. Cumulative Air Kerma in mGy: 31 mGy XR/XR KUB Impression: Intraoperative study. Impression dictated by: Earnest Iraheta Jr., DPaulOPaul10/22/2024 11:14 AM Dictation Location: [id number] Transcribed By: [facility] 10/22/24 1114 Dictated By: Earnest Iraheta Jr, DO 10/22/24 1112 Signed By: <Electronically signed by Earnest Iraheta Jr, DO in OV> 10/22/24 1114 Vital Signs Vital Reading Result Reference Range Collection Date/Time Height 59 [in_i] October 22 6:33am Weight 74.84 kg October 22 6:33am Body Temperature 97.2 [degF] 97.6-99.0 October 22, 2024 9:24am Heart Rate 62 /min 60-100 October 22 10:09am Respiratory rate 16 /min 12-24 October 22, 2024 10:09am Oxygen saturation by Pulse oximetry 95 % 95-100 October 22, 2024 10: 09am BP Systolic 154 mm[Hg] 100-140 October 22 10:09am BP Diastolic 81 mm[Hg] 60-100 October 22 10:09am Inhaled oxygen flow rate 6 L/min Oct 9:24am Height 59 [in_i] January 11, 2025 3:20pm Weight 74.84 kg January 11, 2025 3:20pm Heart Rate 72 /min 60-100 January 11, 2025 3:20pm Oxygen saturation by Pulse oximetry 99 % 95-100 January 11, 2025 3:20p m BP Systolic 126 mm[Hg] 100-140 January 11, 2025 3:20pm BP Diastolic 80 mm[Hg] 60-100 January 11, 2025 3:20pm BMI (Body Mass Index) 33.3 kg/m2 January 112024 3:20pm Advance Directives Advance Directive Response Recorded Date/ Time Advance Directives No May 12, 2017 12:05pm Insurance Providers Guarantor Lexi Cm Address [address] [place] [phone] Contact Info. Home Phone: Payer Policy Id Subscriber's Name Subscriber Id Effectiv e Date Expiration Date Medicare [id number] Lexi Cm [id number] [facility] [employer] Claims [id number] Lexi Cm [id number] Encounters Encounter Location(s) Arrival/Admit Date Discharge/Depart Date Provider(s) Departed Surgical Day Care -Surgery [facility] October 22, 2024 5:58am October 22, 2024 10:42am Mirian Collins MD Departed Physician/Prov ider Office Visit -[facility] November 15, 2024 3:16pm November 15, 2024 3:53pm Olivia Cazares MD Departed Referred -[facility] November 15, 2024 3:30pm November 15, 2024 3:31pm Olivia Cazares MD Departed Physician/Prov ider Office Visit -[facility] January 11, 2025 3:11pm January 11, 2025 3:57pm Olivia Cazares MD Recent Diagnosis Onset Date Admit Date UTI (urinary tract infection), bacterial Unknown November 15, 2024 3:16pm Assessments Diagnosis Onset Date Resolution Status Admit Date UTI (urinary tract infection ), bacterial acute November 15, 2024 3: 16pm Plan of Treatment Future Tests Future scheduled test information is unavailable Pending Tests Pending diagnostic test information is unavailable Future Visits Future appointment information is unavailable Referrals to Other Providers Reason for Referral Referral Start Date Provider Provider Contact Information Provider Address Please call my office to make arrangements for your next scope and stent change in about 5 months. I did not provide additional antibiotics other than that provided during your procedure. Mirian Collins MD Email: [email or web address] Phone: [phone] [place] [address] Future Procedures Procedure Name Ordered Date Scheduled Date Discharge Order October 22, 2024 9:28am October 222024 9:28am Future Medications Future medication information is unavailable Patient Instructions Instruction Admit Date Know your Meds October 22, 2024 5:5 8am Goals Acute Goals Author Authored Date Experience reduced anxiety * Identifies current stressors * Develops effective coping behaviors * Uses support services as appropriate [facility] October 22, 2024 10:42am Remain free of complications [facility] October 22, 2024 10:42am Understand preop/postop care/sensations * Verbalizes understanding of surgical procedure * Verbalizes understanding of sensations following surgery * Verbalizes understanding of post-op treatment plan [facility] October 22, 2024 10:42am Report pain at tolerable lev el * Uses pain scale appropriately * Identify options for pain control - Analgesics - Narcotics - Non-medication measures [facility] October 22, 2024 10:42am Absence of imbalanced fluid volume s/s [facility] October 22, 2024 10:42am Absence of physical injury [facility] October 22, 2024 10:42am Absence of surgical site infection [facility] October 22, 2024 10:42am
--- OUTSIDE RECORDS SUMMARY | 2025-01-15 11:07 | XMS_ITS | Continuity of Care Document ---
Author Organization [facility] Address [address] [place] [address] Phone Care Team Providers Care Kiln Repairer Name Role Phone Olivia Cazares MD Primary Care Provider Olivia Cazares MD Attending Provider [phone] Care Teams Patient Care Team Team Status: Active Member Role Status Dates Olivia Cazares MD Primary Care Provider Active Visit Care Team Team Status: Inactive Member Role Status Dates Olivia Cazares MD Primary Care Provider Active Start: November 15, 2024 End: November 15, 2024 Olivia Cazares MD Attending Provider Active St art: November 15, 2024 End: November 15, 2024 Chief Complaint and Reason for Visit Chief Complaint Admit Date UA:Tired November 15, 2024 3:16pm Reason for Visit Admit Date UTI (urinary tract infection), bacterial November 15, 2024 3:16pm Reason for Referral Referring Provider Name Referring Provider Address Referring Provider Phone Referral Date Requested Appointment Date Referral Reason Mirian Collins [address] Jourdan [facility] [address] Work Phone: You should certainly finish your [...] Status Comments blue dye Allergy Moderate Nausea Esme 1st, 2025 3:23pm Yes Active dye used with [...] diabetic chronic k idney disease Unknown Active Morbid (severe) obesity due to excess calories U nknown Active Other moth exterminator (current) drug therapy Unknown Active Primary osteoarthritis [...] renal disease Unknown Active Hypertension Unknown Active Acute on chronic systolic (congestive) heart trey lure Unknown Active Inactive/Resolved Problems Medical Problem Onset Date Status Acute kidney injury Unknown Resolved Class 1 drug-induced obesity with body mass index (BMI) of 33.0 to 33.9 in adult Unknown Resolved Medications Medication Status Dose Units Route Directions Qty Days St art Date Stop Date End Date Instructions Adherence Oxybutynin Chloride 5 mg tablet Discont inued 5 MG PO Daily September 12, 2023 1:00am November 27, 2023 2:32p m Potassium Chloride 10 mEq capsule, extended release Discont inued 10 MEQ PO Daily September 12, 2023 1:00am 2024 12:31 pm Ferrous Sulfate (Iron (Ferrous Sulfate)) 325 mg (65 mg iron) tablet Discont inued 325 MG PO tid December 05, 2023 12:00a m January 25, 2024 10:20 am Ascorbic Acid (Vitamin C) (Vitamin C) 500 mg tablet Discont inued 500 MG PO daily December 05, 2023 12:00a m Augus t 2023 12:45 pm Ondansetron Hcl 4 [...] 0 .ROUTE .COMPLEX February 02, 2024 9:04am [facility] 2023 2:28p m TAKE ONE CAPSULE BY MOUTH TWICE A DAY Ascorbic Acid (Vitamin C) 500 mg tablet Discont inued 0 .ROUTE .COMPLEX March 01, 2024 12:45p m October 22, 2024 7:03a m TAKE ONE TABLET BY MOUTH ONCE DAILY Ferrous Sulfate (Iron (Ferrous Sulfate)) 325 mg (65 mg iron) tablet Discont inued 325 MG PO every other day March 03, 2024 2:46pm [facility] 2023 8:26a m Oxybutynin Chloride 15 mg tablet extended release 24hr Discont inued 15 MG PO Daily 2023 8:19am 2024 11:36 am Gabapentin 300 mg capsule Discont inued 0 .ROUTE .COMPLEX 60 r 2023 8:27am 2024 11:36 am TAKE ONE CAPSULE BY MOUTH TWICE A DAY Insulin Glargine (Basaglar Kwikpen U-100 Insulin) 100 unit/mL (3 mL) insulin pen Discont inued 60 UNIT SUBCUT Every evening 54 90 Decemb er 2023 3:24pm October 22, 2024 7:06a m Oxybutynin Chloride 15 mg tablet extended release 24hr Discont inued 0 .ROUTE .COMPLEX 30 Julangelr y 2024 11:36a m October 05, 2024 8:22a m TAKE ONE TABLET BY MOUTH ONCE DAILY Gabapentin 300 mg capsule Discont inued 0 .ROUTE .COMPLEX 60 Julangelr y 2024 11:36a m Mitzi madrigal 2024 1:39p m TAKE ONE CAPSULE BY MOUTH TWICE A DAY Gabapentin 300 mg capsule Discont inued 0 .ROUTE .COMPLEX 60 ua ry 2024 1:39pm November 01, 2024 8:27a m [...] mg capsule Active 0 .ROUTE .COMPLEX 60 December 24, 2024 9:28am TAKE ONE CAPSULE BY MOUTH TWICE A DAY Complies with drug therapy Atorvastati n 80 mg Tablet Discont inued 80 MG PO Daily Novemb er 2016 12:00a m Dece 2016 4:33p m Insulin Glargine (Lantus) 100 unit/mL Solution Discont inued 40 UNITS SUBCUT Daily b er 2016 12:00a m Dece 2016 11:06 am Potassium Chloride 10 mEq Tablet Extended Release Discont inued 10 MEQ PO Daily Novemb er 2016 12:00a m Dece 2016 11:05 am Clopidogrel (Plavix) 75 mg Tablet Active 75 MG PO Daily Novemb er 2016 12:00a m Complies with drug therapy Aspirin (Beth Low Dose Aspirin) 81 mg Tablet,Eloisa yed Release (Dr/Ec) Active 81 MG PO Daily b er 2016 12:00a m Complies with drug therapy Vitamin B Complex Tablet Discont inued 1 TAB PO Daily b 2016 12:00a m 2018 7:44a m Allopurinol (Zyloprim) 300 mg Tablet Active 300 MG PO Daily Novemb er 2016 12:00a m Complies with drug therapy Furosemide (Lasix) 20 mg Tablet Discont inued 20 MG PO Daily as needed for Edema Novemb er 2016 12:00a m January 12, 2024 4:18p m Gabapentin 100 mg Capsule Discont inued 200 MG PO Twice daily Novemb 2016 12:00a m Dece 2016 11:51 am Lisinopril 2.5 mg Tablet Discont inued 2.5 MG PO Daily b er 2016 12:00a m Julua ry 2018 7:43a m Insulin Aspart U-100 (Novolog [...] s: STARTING AT 150MG AT BG CHECKS [facility] 2016 12:00a m [facility] 2016 11:06 am Please contact the information source for Protocol details. Metoprolol Tartrate 25 mg Tablet Discont inued 25 MG PO Twice daily [facility] 2016 12:00a m [facility] shanita 2016 4:33p m Ascorbic Acid (Vitamin C) (Vitamin C) 500 mg Tablet Discont inued 500 MG PO Daily [facility] 2016 12:00a m 2017 9:40a m Cholecalcif lexa (Vitamin D3) (Vitamin D3) 1,000 unit Capsule Discont inued 1000 UNITS PO Daily [facility] 2016 12:00a m Dece shanita 2016 11:06 am Gabapentin 100 mg Capsule Discont inued 300 MG PO Daily [facility] 2016 12:00a m [facility] shanita 2016 11:51 am Carvedilol (Coreg) 12.5 mg Tablet Discont inued 25 MG PO Twice daily [facility] 2016 1:00am 2018 1:13p m Spironolact one (Aldactone) 25 mg Tablet Discont inued 25 MG PO Every morning [facility] 2016 1:00am Febru kaitlin th, 2024 4:27p m Nitroglycer in (Nitrostat) 0.4 mg Tablet, Sublingual Discont inued 0.4 MG SUBLIN GUAL Q5M as needed for Chest Pain [facility] 2016 1:00am [facility]2023 4:27p m Docusate Sodium (Colace) 100 mg Capsule Discont inued 100 MG PO Twice daily as needed for Constipatio n [facility] 2016 1:00am January 12, 2024 4:21p m Rosuvastati n (Crestor) 5 mg Tablet Active 5 MG PO Daily at bedtime [facility] 2016 1:00am Complies with drug therapy Insulin Glargine (Lantus U-100 Insulin) 100 unit/mL Solution Discont inued 40 UNIT SUBCUT Daily 0 [facility] 2016 11:05a m 2017 9:40a m Cholecalcif lexa (Vitamin D3) (Vitamin D3) 1,000 unit Capsule Discont inued 1000 UNIT PO Daily 0 [facility] 2016 11:05a m 2017 9:38a m Insulin [...] STARTING AT 150MG AT BG CHECKS 0 Dece er 2016 11:05a m 2017 9:40a m Please contact the information source for Protocol details. Gabapentin 300 mg capsule Discont inued 300 MG PO Twice daily 60 30 [facility] er 2016 1:00am 2018 1:00a m September 11, [...] inued 325 MG PO .Every other day [facility] er 2023 1:00am October 22, 2024 7:04a m [...] s: STARTING AT 150MG AT BG CHECKS Rebeka poole 2017 9:40am Angus sanchez 2024 12:08 pm Please contact the information [...] MG PO Daily September 11, 2017 1:00am 2023 4:26p m Gabapentin 100 mg Capsule [...] SUBCUT Every evening January 12, 2024 4:15pm 2023 12:29 pm Losartan 25 mg tablet Discont inued 25 MG PO Daily at bedtime 2018 1:00am 2023 4:26p m Acetaminoph en (Tylenol) 325 mg Tablet Discont inued 650 MG PO Daily at bedtime 2018 1:00am January 12, 2024 4:14p m Carvedilol 25 mg tablet Active 25 MG PO Twice daily 2018 1:00am Complies with drug therapy Tramadol 50 mg tablet Discont inued 50 MG PO EVERY 4-6 HOURS as needed for pain 20 2018 1:00am 2018 1:00a m 2018 1:02a m Ciprofloxac in Hcl (Cipro) 500 mg tablet Discont inued 500 MG PO Q12H 10 b er 2023 1:00am Dece shanita 2023 11:58 [...] PO Daily January 12, 2024 12:00a m [facility] shanita 2023 11:18 am Furosemide 40 mg [...] PO Daily March 05, 2024 2:06pm [facility] 2023 8:20a m Lisinopril 5 mg tablet [...] Discont inued 300 MG PO Twice daily Sept shanita 2023 2:26pm Octob er 2023 8:27a [...] 12:00a m January 11, 2025 3:51p m Fluconazole 150 mg tablet Active 150 MG PO Q7D January 13, 2025 12:00a m Complies with drug therapy Immunizations Immunization Event Date Not Given Reason Dose Number [employer] Lot Number Vaccine Information Statement (VIS) Detail Administration Location COVID-19 mRNA, Comirnaty ([employer]) April 13, 2021 COVID-19 mRNA, Comirnaty ([employer]) August 30, 2020 COVID-19 mRNA, Comirnaty ([employer]) August 09, 2020 COVID-19 mRNA Bivalent Booster ([employer]) June 17, 2022 Medical Equipment Device Date Implanted Date Explanted Device Deta ils CL STENT XIENCE ALP 2.25 X 15 June 24, 2017 CL STENT XIENCE ALP 2.5 X 38 June 24, 2017 CL STENT XIENCE ALP 3.0 X 18 June 24, 2017 STENT PALMAZ BLUE 7 X 24 135CM September 11, 2017 Polymeric ureteral stent October 22, 2024 INEZ: [id number] Issuing Agency: [facility] Device Id: [id number] Expiration Date: 2027-07-25 Lot Number: [id number] Polymeric ureteral stent October 22, 2024 INEZ: [id number] Issuing Agency: [facility] Device Id: [id number] Expiration Date: 2028-05-21 Lot Number: [id number] GRAFT HEMASHIELD [id number] July 20, 2018 IR STENT SMART 9 X 40 120 CM July 20, 2018 Polymeric ureteral stent January 23, 2024 2024 INEZ: [id number] Issuing Agency: [facility] Device Id: [id number] Expiration Date: 2027-12-26 Lot Number: [id number] Polymeric ureteral stent 2024 October 22, 2024 INEZ: [id number] Issuing Agency: [facility] Device Id: [id number] Expiration Date: 2028-05-01 Lot Number: [id number] Polymeric ureteral stent 2024 October 22, 2024 INEZ: [id number] Issuing Agency: [facility] Device Id: [id number] Expiration Date: 2028-05-01 Lot Number: [id number] Relevant Diagnostic Tests and/or Laboratory Data Laboratory Results Test Collection Date/Time Result Date/Time Result Interpretation Reference Range Result Comment Performing Site Urine Color November 15, 2024 3:49pm November 15, 2024 3:52pm Yellow Urine Appearance November 15, 2024 3:49pm November 15, 2024 3:52pm cloudy Urine Specific [place] November 15, 2024 3:49pm November 15, 2024 3:52pm 1.005 Urine pH November 15, 2024 3:49pm November 15, 2024 3:52pm 6.5 Urine Leukocyte Esterase November 15, 2024 3:49pm November 15, 2024 3:52pm +++ Urine Nitrite November 15, 2024 3:49pm November 15, 2024 3:52pm Negative Urine Protein November 15, 2024 3:49pm November 15, 2024 3:52pm +++ Urine Glucose (UA) November 15, 2024 3:49pm November 15, 2024 3:52pm negative Urine Ketones November 15, 2024 3:49pm November 15, 2024 3:52pm negative Urine Urobilinoge n November 15, 2024 3:49pm November 15, 2024 3:52pm 0.2 Urine Bilirubin November 15, 2024 3:49pm November 15, 2024 3:52pm negative Urine Occult Blood November 15, 2024 3:49pm November 15, 2024 3:52pm ++ Advance Directives Advance Directive Response Recorded Date/ Time Advance Directives No May 12, 2017 12:05pm Insurance Providers Guarantor Lexi Cm Address [address] [place] [phone] Contact Info. Home Phone: Payer Policy Id Subscriber's Name Subscriber Id Effectiv e Date Expiration Date Medicare [id number] Lexi Hendrickskellen [id number] [facility] Health Claims [id number] Lexi Hendrickskellen [id number] Encounters Encounter Location(s) Arrival/Admit Date Discharge/Depart Date Provider(s) Departed Physician/Prov ider Office Visit -[facility] November 15, 2024 3:16pm November 15, 2024 3:53pm Olivia Cazares MD Recent Diagnosis Onset Date [...] during your procedure. Mirian Collins MD Email: [email or web address] Phone: [phone] [facility] [address] Future Procedures Procedure Name Ordered Date Scheduled Date Discharge Order October 22, 2024 9:28am October 222024 9:28am Future Medications Future medication information is unavailable Patient Instructions Instruction Admit Date Know your Meds October 22, 2024 5:5 8am
--- OUTSIDE RECORDS SUMMARY | 2025-01-25 13:06 | XMS_ITS | Encounter Summary ---
Author Organization [facility] Address [address] [place] [address] Phone Care Team Providers Care Bicycle Designer Name Role Phone Olivia Cazares MD Primary Care Provider [phone] Encounter Details Date Type Department Care Team (Late st Contact Info) Description 06/28/2024 Scanned Document [facility] [address] [place] [id number] Scanning, Generic Provider Social History Tobacco Use Types Packs/Day Years Used Date Smoking Tobacco: Former Cigarettes Q uit: 1996 Smokeless Tobacco: Never Alcohol Use Standard Drinks/Week Comments Yes 0 (1 standard drink = 0.6 oz pur e alcohol) occasional Comments Unknown Sex and Gender Information Value Date Recorded Sex Assigned at Not on file Legal Sex Female 9:40 PM EST Gender Identity Not on file Sexual Orientation Not on file documented as of this encounter Plan of Treatment Upcoming Encounters Date Type Department Care Team (Late Contact Info) Description 07/25/2025 9:45 AM EST Appointment [address] [place] [phone] 08/11/2025 11:10 AM EST Office Visit [address] [place] [phone] Tom Cobb DO [address] [place] [address] [address] [place], [place] [phone] documented as of this encounter Visit Diagnoses Not on filedocumented in this encounter Additional Health Concerns Assessment Noted Time A fall risk assessment has been complete d for the patient 09/17/2023 1:06 PM EST documented as of this encounter Care Teams Bicycle Designer Relationship Specialty Start Date End Date Olivia Cazares MD PCP - General Family Medicine 09/17/23 documented as of this encounter
--- OUTSIDE RECORDS SUMMARY | 2025-01-25 13:06 | XMS_ITS | Encounter Summary ---
Author Organization [facility] Address [address] [place] [address] Phone Care Team Providers Care Enhanced Environmental Operator Name Role Phone Tom Morales MD, Marcia E MD Primary Care Provider [phone] Encounter Details Date Type Department Care Team (Late st Contact Info) Description 07/16/2023 Patient Risk Score [facility] Care Management [address] [place] [address] Social History Tobacco Use Types Packs/Day Years [...] Encounters Date Type Department Care Team (Late st Contact Info) Description 07/25/2025 9:45 AM EST Appointment [place] [place] [address] 08/11/2025 11:10 AM EST Office Visit [address] [place] [address] Tom Cobb DO 703 [facility] [address] 2, [address] [place], [place] [phone] documented as of this encounter Visit Diagnoses Not on filedocumented in this encounter Care Teams Enhanced Environmental Operator Relationship Specialty Start Date End Date Tom Morales MD Retired From Practice PCP - MSSP ACO Attributed Provider 01/11/23 10/12/23 Olivia Cazares MD Retired From Practice PCP - General Family Medicine 09/17/23 documented as of this encounter
--- OUTSIDE RECORDS SUMMARY | 2025-01-25 13:06 | XMS_ITS | Encounter Summary ---
Author Organization [facility] Address [address] [place] [address] Phone Care Team Providers Care Knobber Name Role Phone Olivia Cazares MD Primary Care Provider [phone] Encounter Details Date Type Department Care Team (Late st Contact Info) Description 01/14/2024 Patient Risk Score [facility] [facility] [address] [place] [address] Social History Tobacco Use Types [...] Info) Description 07/25/2025 9:45 AM EST Appointment [place] [place] [address] 08/11/2025 11:10 AM EST Office Visit [address] [place] [address] Tom Cobb DO 703 [facility] 2, [address] [place], [place] [address] documented as of this encounter Visit Diagnoses Not on filedocumented in this encounter Additional Health Concerns Assessment Noted Time A fall risk assessment has been complete d for the patient 09/17/2023 1:06 PM EST documented as of this encounter Care Teams Knobber Relationship Specialty Start Date End Date Olivia Cazares MD PCP - General Family Medicine 09/17/23 documented as of this encounter
--- OUTSIDE RECORDS SUMMARY | 2025-01-25 13:06 | XMS_ITS | Encounter Summary ---
Author Organization [facility] Address [address] [place] [address] Phone Care Team Providers Care Composition Stone Applicator Name Role Phone Olivia Cazares MD Primary Care Provider [phone] Encounter Details Date Type Department Care Team (Late st Contact Info) Description 01/25/2024 Scanned Document [facility] [address] [place] [phone] Scanning, Generic Provider Social History Tobacco Use [...] Info) Description 07/25/2025 9:45 AM EST Appointment [address] [place] [address] 08/11/2025 11:10 AM EST Office Visit [address] [place] [address] Tom Cobb DO [address] [place] [address] 2, [address] [place], [place] [address] documented as of this encounter Visit Diagnoses Not on filedocumented in this encounter Additional Health Concerns Assessment Noted Time A fall risk assessment has been complete d for the patient 09/17/2023 1:06 PM EST documented as of this encounter Care Teams Composition Stone Applicator Relationship Specialty Start Date End Date Olivia Cazares MD PCP - General Family Medicine 09/17/23 documented as of this encounter
--- OUTSIDE RECORDS SUMMARY | 2025-01-25 13:06 | XMS_ITS | Encounter Summary ---
Author Organization [facility] Address [address] [place] [address] Phone Care Team Providers Care Packer Fuser Name Role Phone Olivia Cazares MD Primary Care Provider [phone] Encounter Details Date Type Department Care Team (Late st Contact Info) Description 01/23/2024 Scanned Document [facility] [address] [place] [address] Scanning, Generic Provider Social History Tobacco Use [...] Info) Description 07/25/2025 9:45 AM EST Appointment [address] [place] [address] 08/11/2025 11:10 AM EST Office Visit [address] [place] [address] Tom Cobb DO [address] [place] [address] 2, [address] [place], [place] [address] documented as of this encounter Procedures Procedure Name Priority Date/Time Associated Diagnosis Comments OUTSIDE IMAGING SCAN 01/23/2024 documented in this encounter Results * OUTSIDE IMAGING SCAN (01/23/2024) Anatomical Region Laterality Modality Other Narrative 01/23/2024 Ordered by an unspecified provider. us Generic Provider Scanning OUTSIDE SCAN Final Result documented in this encounter Visit Diagnoses Not on filedocumented in this encounter Additional Health Concerns Assessment Noted Time A fall risk assessment has been complete d for the patient 09/17/2023 1:06 PM EST documented as of this encounter Care Teams Packer Fuser Relationship Specialty Start Date End Date Olivia Cazares MD PCP - General Family Medicine 09/17/23 documented as of this encounter
--- OUTSIDE RECORDS SUMMARY | 2025-01-25 13:06 | XMS_ITS | Encounter Summary ---
Author Organization [facility] Address [address] [place] [address] Phone Care Team Providers Care Conversion Man Name Role Phone Olivia Cazares MD Primary Care Provider [phone] Encounter Details Date Type Department Care Team (Late st Contact Info) Description 01/22/2024 Scanned Document [facility] [address] [place] [phone] Scanning, Generic Provider Social History Tobacco Use [...] Info) Description 07/25/2025 9:45 AM EST Appointment [address] [place] [address] 08/11/2025 11:10 AM EST Office Visit [address] [place] [address] Tom Cobb DO [address] [place] [address] 2, [address] [place], [place] [address] documented as of this encounter Visit Diagnoses Not on filedocumented in this encounter Additional Health Concerns Assessment Noted Time A fall risk assessment has been complete d for the patient 09/17/2023 1:06 PM EST documented as of this encounter Care Teams Conversion Man Relationship Specialty Start Date End Date Olivia Cazares MD PCP - General Family Medicine 09/17/23 documented as of this encounter
--- OUTSIDE RECORDS SUMMARY | 2025-01-25 13:06 | XMS_ITS | Encounter Summary ---
Author Organization [facility] Address [address] [place] [address] Phone Care Team Providers Care Flat Lock Operator Name Role Phone Tom Morales MD, Marcia E MD Primary Care Provider Encounter Details Date Type Department Care Team (Late st Contact Info) Description 01/30/2022 Orders Only [facility] [address] [place] [address] Conversion, Onbase Social History Tobacco Use Types Packs/Day Years Used Date Smoking Tobacco: Never Assessed Comments Unknown Sex and Gender Information Value Date Recorded Sex Assigned at Not on file Legal Sex Female 9:40 PM EST Gender Identity Not on file Sexual Orientation Not on file documented as of this encounter Plan of Treatment Upcoming Encounters Date Type Department Care Team (Late st Contact Info) Description 07/25/2025 9:45 AM EST Appointment [place] [address] [facility] [address] [place] [address] 08/11/2025 11:10 AM EST Office Visit [address] [place] [address] Tom Cobb DO 703 [facility] 2, [facility] 250 [place] [address] Scheduled Orders Name Type Priority Associated Diagnoses Orde r Schedule OUTSIDE LAB SCAN Lab Ordered: 01/30/2022 documented as of this encounter Visit Diagnoses Not on filedocumented in this encounter Care Teams Flat Lock Operator Relationship Specialty Start Date End Date Tom Morales MD Retired From Practice PCP - MSSP ACO Attributed Provider 01/11/23 10/12/23 Olivia Cazares MD Retired From Practice PCP - General Family Medicine 09/17/23 documented as of this encounter
--- OUTSIDE RECORDS SUMMARY | 2025-01-25 13:06 | XMS_ITS | Encounter Summary ---
Author Organization [facility] Address [address] [place] [address] Phone Care Team Providers Care Concrete Products Dispatcher Name Role Phone Olivia Cazares MD Primary Care Provider [phone] Encounter Details Date Type Department Care Team (Late st Contact Info) Description 12/16/2023 Patient Risk Score [facility] [facility] [address] [place] [address] Social History Tobacco Use Types [...] Info) Description 07/25/2025 9:45 AM EST Appointment [address] [place] [address] 08/11/2025 11:10 AM EST Office Visit [address] 250 [place] [address] Tom Cobb DO 703 [facility] 2, [address] [place], [place] [phone] documented as of this encounter Visit Diagnoses Not on filedocumented in this encounter Additional Health Concerns Assessment Noted Time A fall risk assessment has been complete d for the patient 09/17/2023 1:06 PM EST documented as of this encounter Care Teams Concrete Products Dispatcher Relationship Specialty Start Date End Date Olivia Cazares MD PCP - General Family Medicine 09/17/23 documented as of this encounter
--- OUTSIDE RECORDS SUMMARY | 2025-01-25 13:06 | XMS_ITS | Encounter Summary ---
Author Organization [facility] Address [address] [place] [address] Phone Care Team Providers Care Booster Pump Operator Name Role Phone Olivia Cazares MD Primary Care Provider [phone] Encounter Details Date Type Department Care Team (Late st Contact Info) Description 05/21/2024 Scanned Document [facility] [address] [place] [address] Scanning, Generic Provider Social History Tobacco Use [...] Info) Description 07/25/2025 9:45 AM EST Appointment [address] [place] [address] 08/11/2025 11:10 AM EST Office Visit [address] [place] [address] Tom Cobb DO [address] [place] [address] 2, [address] [place], [place] [address] documented as of this encounter Visit Diagnoses Not on filedocumented in this encounter Additional Health Concerns Assessment Noted Time A fall risk assessment has been complete d for the patient 09/17/2023 1:06 PM EST documented as of this encounter Care Teams Booster Pump Operator Relationship Specialty Start Date End Date Olivia Cazares MD PCP - General Family Medicine 09/17/23 documented as of this encounter
--- OUTSIDE RECORDS SUMMARY | 2025-01-25 13:07 | XMS_ITS | Encounter Summary ---
Author Organization [facility] Address [address] [place] [address] Phone Care Team Providers Care Evs Tech Name Role Phone Tom Morales MD Unavailable Tom Núñez MD Unavailable Olivia Rios MD Primary Care Provider [phone] Encounter Details Date Type Department Care Team (Late st Contact Info) Description 01/11/2021 Orders Only [facility] [address] [place] [address] Conversion, Onbase Social History Tobacco Use Types [...] Info) Description 07/25/2025 9:45 AM EST Appointment [place] [address] [facility] [address] [place] [address] 08/11/2025 11:10 AM EST Office Visit [address] [place] [address] Tom Cobb DO 703 [facility] 2, [address] [place] [address] Scheduled Orders Name Type Priority Associated Diagnoses Orde r Schedule OUTSIDE LAB SCAN Lab Ordered: 01/11/2021 documented as of this encounter Visit Diagnoses Not on filedocumented in this encounter Care Teams Evs Tech Relationship Specialty Start Date End Date Tom Morales MD Retired From Practice PCP - MSSP ACO Attributed Provider 10/12/21 01/10/22 Tom Morales MD Retired From Practice PCP - MSSP ACO Attributed Provider 01/11/23 10/12/23 Olivia Cazares MD Retired From Practice PCP - General Family Medicine 09/17/23 documented as of this encounter
--- OUTSIDE RECORDS SUMMARY | 2025-01-25 13:07 | XMS_ITS | Patient Health Record ---
Author Organization [facility] Address [address] [place] [address] Care Team Providers Care Pipeline Superintendent Division Name Role Phone Olivia Cazares Primary Care Provider Annie Alcantara Unavailable [phone] Allergies No Known Allergies Reason For Referral No Information Medications Medication SIG (Take, Route, Frequency, Duration) Notes Start Date End Date Status Colace Active Clopidogrel Bisulfate 75 MG 1 tablet Ora lly Once a day Active Gabapentin 300 MG 1 capsule Orally Twi ce a Day Active Furosemide 40 MG 1 tablet Orally Once a day Active Allopurinol 300 MG 1 tablet Orally Once a day Active Vitamin D3 125 MCG (5000 UT) 1 capsule Orally Once a day Active Carvedilol 25 MG 1 tablet with food O rally Twice a day 11/27/2023 Active Aspirin 81 MG 1 tablet Orally Once a day Active oxyBUTYnin Chloride 5 MG 1 tablet Orally Once a day Active Rosuvastatin Calcium 5 MG 1 tablet Orall y Once a day Active Potassium Chloride 10 MEQ/100ML as directed Intravenous Acti ve Social History Tobacco Use: Social History Observation Description Date Details (start date - stop date) Former Smoker NA - NA Tobacco Control (Standard) Question Answer Notes Tobacco use: Former smoker Problems Problem Type SNOMED Code ICD Code Onset Dates Problem Status W/U Status Risk Notes Problem 048093112 Peripheral vascular disease, unspecified (I73.9) Active confirmed Problem 81179593 Type 2 diabetes mellitus with other specified complication (E11.69) Active confirmed Problem Coronary artery disease (04719446) CAD (coronary artery disease) (I25.10) Active confirmed Problem Hypertension (68851865) HTN (hypertension) (I10) Active confirmed Problem Gout (13124742) Gout (M10.9) Active confirmed Problem Diabetes mellitus type 2 (disorder) (97310425) DM2 (diabetes mellitus, type 2) (E11.9) Active confirmed Vital Signs Heart Rate 75 /min 08/02/2024 Temperature 97.1 degrees Fahrenheit 08/02/2024 Oximetry 98 % 08/02/2024 Height 59 in 08/02/2024 Weight 165 lbs 08/02/2024 BMI 33.32 kg/m2 08/02/2024 Encounters Encounter Location Date Provider Diagnosis [facility] (PODIATRY) [address] [place] [address] [place] [address] 03/29/2024 Annie Lovingen Type 2 diabetes mellitus with other specified complication E11.69 ; Pain in left toe(s) M79.675 and Pain in right toe(s) M79.674 [facility] (PODIAT[facility]) [address] [place] [address] [place] [address] 08/02/2024 Annie Gasca Type 2 diabetes mellitus with other specified complication E11.69 ; Pain in left toe(s) M79.675 and Peripheral vascular disease, unspecified I73.9 Assessments Encounter Date Diagnosis (ICD Code) Assessment Notes Treatment Notes Treatment Clinical Notes Section Notes 03/29/2024 Type 2 diabetes mellitus with other specified complication (ICD-10 - E11.69) 03/29/2024 Pain in left toe(s) (ICD-10 - M79.675) 08/02/2024 Type 2 diabetes mellitus with other specified complication (ICD-10 - E11.69) 08/02/2024 Pain in left toe(s) (ICD-10 - M79.675) 08/02/2024 Peripheral vascular disease, unspecified (ICD-10 - I73.9) 03/29/2024 Pain in right toe(s) (ICD-10 - M79.674) Plan Of Treatment No Information Insurance Providers Payer Name Payer Address Payer Phone Subscriber Number Group Number Insured Name Patient Relationship to Insured Coverage Start Date Coverage End Date [place] [address] [place] [address] [id number] Lexi Cm Self - patient is the insured [facility] [address] [place] [address] [id number] PLAN K Lexi Cm Self - patient is the insured Medical (General) History Medical History History ICD Code arthritis diabetes heart disease peripheral vascular disease Surgical History Surgery Date(Month/Year) heart bypass
--- OUTSIDE RECORDS SUMMARY | 2025-01-25 13:07 | XMS_ITS | Encounter Summary ---
Author Organization [facility] Address [address] [place] [address] Phone Care Team Providers Care Pre Kindergarten Teacher Name Role Phone Tom Morales MD Unavailable Tom Núñez MD Unavailable Olivia Rios MD Primary Care Provider [phone] Encounter Details Date Type Department Care Team (Late st Contact Info) Description 11/23/2020 Orders Only [facility] [address] [place] [address] Conversion, Onbase Social History Tobacco Use Types [...] Info) Description 07/25/2025 9:45 AM EST Appointment [place] [address] [facility] [address] [place] [address] 08/11/2025 11:10 AM EST Office Visit [address] [place] [address] Tom Cobb DO 703 [facility] 2, [address] [place] [address] Scheduled Orders Name Type Priority Associated Diagnoses Orde r Schedule OUTSIDE LAB SCAN Lab Ordered: 11/23/2020 documented as of this encounter Visit Diagnoses Not on filedocumented in this encounter Care Teams Pre Kindergarten Teacher Relationship Specialty Start Date End Date Tom Morales MD Retired From Practice PCP - MSSP ACO Attributed Provider 10/12/21 01/10/22 Tom Morales MD Retired From Practice PCP - MSSP ACO Attributed Provider 01/11/23 10/12/23 Olivia Cazares MD Retired From Practice PCP - General Family Medicine 09/17/23 documented as of this encounter
--- OUTSIDE RECORDS SUMMARY | 2025-01-25 13:07 | XMS_ITS | Encounter Summary ---
Author Organization [facility] Address [address] [place] [address] Phone Care Team Providers Care Software Client Architect Name Role Phone Tom Morales MD Unavailable Tom Núñez MD Unavailable Olivia Rios MD Primary Care Provider [phone] Encounter Details Date Type Department Care Team (Late st Contact Info) Description 01/02/2021 Orders Only [facility] [address] [place] [address] Conversion, Onbase Social History Tobacco Use Types [...] Info) Description 07/25/2025 9:45 AM EST Appointment [place] [address] [place] [address] [place] [address] 08/11/2025 11:10 AM EST Office Visit [address] [place] [address] Tom Cobb DO 703 [facility] 2, [address] [place] [address] Scheduled Orders Name Type Priority Associated Diagnoses Orde r Schedule OUTSIDE LAB SCAN Lab Ordered: 01/02/2021 OUTSIDE LAB SCAN Lab Ordered: 01/02/2021 documented as of this encounter Visit Diagnoses Not on filedocumented in this encounter Care Teams Software Client Architect Relationship Specialty Start Date End Date Tom Morales MD Retired From Practice PCP - MSSP ACO Attributed Provider 10/12/21 01/10/22 Tom Morales MD Retired From Practice PCP - MSSP ACO Attributed Provider 01/11/23 10/12/23 Olivia Cazares MD Retired From Practice PCP - General Family Medicine 09/17/23 documented as of this encounter
--- OUTSIDE RECORDS SUMMARY | 2025-01-25 13:07 | XMS_ITS | Encounter Summary ---
Author Organization [facility] Address [address] [place] [address] Phone Care Team Providers Care Welding Tester Name Role Phone Tom Morales MD Unavailable Tom Núñez MD Unavailable Olivia Rios MD Primary Care Provider [phone] Encounter Details Date Type Department Care Team (Late st Contact Info) Description 12/14/[address] [facility] [address] [place] [address] Conversion, Onbase Social History Tobacco Use Types [...] Info) Description 07/25/2025 9:45 AM EST Appointment [place] [address] [facility] [address] [place] [address] 08/11/2025 11:10 AM EST Office Visit [address] [place] [address] Tom Cobb DO 703 [facility] 2, [address] [place] [address] Scheduled Orders Name Type Priority Associated Diagnoses Orde r Schedule OUTSIDE LAB SCAN Lab Ordered: 12/14/2021 documented as of this encounter Visit Diagnoses Not on filedocumented in this encounter Care Teams Welding Tester Relationship Specialty Start Date End Date Tom Morales MD Retired From Practice PCP - MSSP ACO Attributed Provider 10/12/21 01/10/22 Tom Morales MD Retired From Practice PCP - MSSP ACO Attributed Provider 01/11/23 10/12/23 Olivia Cazares MD Retired From Practice PCP - General Family Medicine 09/17/23 documented as of this encounter
--- OUTSIDE RECORDS SUMMARY | 2025-01-25 13:07 | XMS_ITS | Clinical Summary ---
Author Organization [facility] Address [address] [place] [address] Phone Care Team Providers Care Excellence Coach Name Role Phone Olivia Cazares MD Primary Care Provider Allergies Active Allergy Reactions Criticality Noted Date Comments Dze Inhibitors Other Low 07/08/2023 Atorvastatin Myalgia Medium 07/08/2023 Spironolactone Other Low 07/08/2023 Ejeluef-Xte-Mck Reductase Inhibitors Myalgia Low 07/08/2023 Medications allopurinol (Zyloprim) 300 mg tablet Take 1 tablet (300 mg) by mouth once daily. 01/18/20 21 Active cholecalciferol (Vitamin D-3) 5,000 Units tablet Take 1 tablet (5,000 Units) by mouth every other day. with food 06/04/20 23 Active gabapentin (Neurontin) 300 mg capsule Take 1 capsule (300 mg) by mouth 2 times a day. 07/03/20 23 Active NovoLOG Flexpen U-100 Insulin 100 unit/mL (3 mL) pen INJECT 20 UNITS VIA SUBCUTANEOUS ROUTE NEEDED PER SLIDING SCALE 02/12/20 23 Active Basaglar KwikPen U-100 Insulin 100 unit/mL (3 mL) pen Inject 50 Units under the skin once daily at bedtime. 07/03/20 23 Active rosuvastatin (Crestor) 5 mg tabletIndications: Mixed hyperlipidemia Take 1 tablet (5 mg) by mouth once daily at bedtime. 90 tablet 3 09/17/19 24 Active oxybutynin XL (Ditropan-XL) 15 mg 24 hr tablet 1 tablet (15 mg) once daily. 12/11/19 24 Active carvedilol (Coreg) 25 mg tabletIndications: Ischemic cardiomyopathy Take 1 tablet (25 mg) by mouth 2 times a day. 180 tablet 3 07/01/20 24 025 Active aspirin 81 mg EC tabletIndications: CAD, multiple vessel Take 1 tablet (81 mg) by mouth once daily. 90 tablet 3 07/29/19 25 026 Active ferrous sulfate 325 (65 Fe) MG EC tablet Take 1 tablet by mouth every other day. 02/27/20 24 Active lisinopril 5 mg tablet Take 1 tablet (5 mg) by mouth early in the morning.. 08/03/19 25 Active furosemide (Lasix) 40 mg tabletIndications: Primary hypertension Take 1 tablet (40 mg) by mouth once daily. 90 tablet 3 10/01/19 25 026 Active clopidogrel (Plavix) 75 mg tabletIndications: History of angioplasty,Occlus ion and stenosis of right carotid artery Take 1 tablet (75 mg) by mouth once daily. 90 tablet 3 12/24/19 25 026 Active Active Problems Problem Noted Date Diagnosed Date Chronic kidney disease, stage 3b (Multi) 025 BMI 33.0-33.9,adult 09/17/2023 Assessment & Plan (08/12/2024 9:45 AM EST): Reviewed the merits of healthy lifestyle choices on overall cardiovascular health. Former smoker 09/17/2023 Bruit of right carotid artery 07/08/2023 CAD, multiple vessel 07/08/2023 Assessment & Plan (08/12/2024 9:41 AM EST): November 2016 CABG x 15 June 2017 cardiac cath Distal/mid RCA PCI/GURU x 2 HACKETT-LAD was patent Sequential saphenous vein graft from PDA-OM was occluded LVEF 45% October 2023 MPI no ischemia, no infarct. EF 48%. Current daily activity less than 4 METS. Dizziness 07/08/2023 Edema 07/08/2023 HTN (hypertension) 07/08/2023 Assessment & Plan (08/12/2024 9:41 AM EST): Asymptomatic hypotension noted in the office today. 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 Chanel retired. During January 2024 hospitalization for hydronephrosis she had a CT of the abdomen that was unremarkable in regards to aortic aneurysm. S/P CABG x 3 07/08/2023 SOB (shortness of breath) on exertion 07/08/2023 Type 2 diabetes mellitus 07/08/2023 Assessment & Plan (08/12/2024 9:45 AM EST): On DEZ/statin Recent hemoglobin A1c 8.2 Resolved Problems Problem Noted Date Diagnosed Date Resolved Date Abnormal EKG 07/08/2023 09/17/2023 History of angioplasty 07/08/202308/11 History of MD (myocardial infarction) 07/08/2023 08/11/2024 Encounters Date Type Department Care Team Description 12/23/[address] [phone] Tom Morales MD History of angioplasty; Occlusion and stenosis of right carotid artery from Last 3 Months Immunizations Immunization Administration Dates Next Due Influenza, injectable, quadrivalent 07/03/2022 Pfizer Purple Cap SARS-CoV-2 04/13/2021,08/30/19 21,08/09/2020 Pneumococcal conjugate vacci ne, 13-valent (PREVNAR 13) 04/13/2018,10/30/2016 Pneumococcal polysaccharide vaccine, 23-valent, age 2 years and older (PNEUMOVAX 23) 10/12/2016 Family History Medical History Relation Name Comments Kidney cancer Brother Heart disease Father Hypertension Mother Relation Name Status Comments Brother Father Mother Social History Tobacco Use Types Packs/Day Years Used Date Smoking Tobacco: Former Cigarettes Q uit: 2000 Smokeless Tobacco: Never Alcohol Use Standard Drinks/Week Comments Yes 0 (1 standard drink = 0.6 oz pur e alcohol) occasional Comments Unknown Sex and Gender Information Value Date Recorded Sex Assigned at Not on file Legal Sex Female 9:40 PM EST Gender Identity Not on file Sexual Orientation Not on file Last Filed Vital Signs Vital Sign Reading Time Taken Comments Blood Pressure 102/60 08/11/2024 3:39 PM EST Pulse 54 08/11/2024 3:23 PM EST Temperature - - Respiratory Rate - - Oxygen Saturation - - Inhaled Oxygen Concentration - - Weight 74.8 kg (165 lb) 08/11/2024 3:23 PM EST Height 149.9 cm (4' 11 ) 08/11/2024 3:23 PM EST Body Mass Index 33.33 08/11/2024 3:23 PM EST Plan of Treatment Upcoming Encounters Date Type Department Care Team (Late st Contact Info) Description 07/25/2025 9:45 AM EST Appointment [address] [phone] 08/11/2025 11:10 AM EST Office Visit [address] [phone] Tom Cobb DO [address] [place] [address] 2, [address] [address] Health Maintenance Due Date Last Done Comments Bone Density Scan 1945 Diabetes: Urine Protein Screening 1945 Echocardiogram 1945 Hepatitis C Screening 1963 DTaP/Tdap/Td Vaccines (1 - Tdap) 1967 Zoster Vaccines (1 of 2) 1995 Diabetes: Hemoglobin A1C 09/15/2019 06/16/2019 RSV High Risk: (Elderly (60+) or Population) (1 - 1-dose 75+ series) 2020 Creatinine Level 06/16/2020 06/16/2019 Lipid Panel 06/16/2020 06/16/2019 Potassium Level 06/16/2020 06/16/2019 Medicare Annual Wellness Visit (AWV) 10/16/2022 10/15/2021, 03/13/2020, 12/10/2016 Diabetes: Retinopathy Screening 07/19/2023 07/19/2022, 03/02/2019, 01/19/2019, Additional history exists COVID-19 Vaccine ( season) 2024 06/17/2022, 04/13/2021, 08/30/2020, Additional history exists Influenza Vaccine (#1) 2025 2, 07/01/2019, 07/14/2018, Additional history exists Pneumococcal Vaccine Completed 04/16/2018, 04/13/2018, 10/30/2016, Additional history exists HIB Vaccines Aged Out No longer eligi ble based on patient's age to complete this topic HPV Vaccines (No Doses Required) Completed Hepatitis A Vaccines Aged Out No long er eligible based on patient's age to complete this topic Hepatitis B Vaccines Aged Out No long er eligible based on patient's age to complete this topic IPV Vaccines Aged Out No longer eligi ble based on patient's age to complete this topic Meningococcal Vaccine Aged Out No michael kayden eligible based on patient's age to complete this topic Rotavirus Vaccines Aged Out No longer eligible based on patient's age to complete this topic Procedures Procedure Name Priority Date/Time Associated Diagnosis Comments HEMOGLOBIN A1C Routine 06/16/2019 12:05 PM EST LIPID PANEL Routine 06/16/2019 12:05 PM EST COMPREHENSIVE METABOLIC PANEL Routine 06/16/2019 12:05 PM EST from Last 3 Months or Most Recently Relevant to Health Maintenance Results * Hemoglobin A1C (06/16/2019 12:05 PM EST) Hemoglobin A1C 7.5 % [facility] Comment: Diagnosis of Diabetes-Adults Non-Diabetic: < or = 5.6% Increased risk for developing diabetes: 5.7-6.4% Diagnostic of diabetes: > or = 6.5% . Monitoring of Diabetes Age (y) Therapeutic Goal (%) Adults: >18 <7.0 Pediatrics: 13-18 <7.5 7-12 <8.0 0- 6 7.5-8.5 [employer]. Diabetes Care 33(S1), Jul 2009. Estimated Average Glucose 169 MG/DL [facility] 06/16/2019 12:0 5 PM EST 06/16/2019 11:43 PM EST us Radha Lee MD LAB BLOOD ORDERABLES Final Result [facility] * (ABNORMAL) Lipid Panel (06/16/2019 12:05 PM EST) Cholesterol 182 0 - 199 mg/dL [facility] Comment: . AGE DESIRABLE BORDERLINE HIGH HIGH [...] be performed immediately prior to Metamizole dosing. HDL 39.0(A) mg/dL [facility] Comment: . AGE VERY LOW LOW NORMAL HIGH 0-19 Y < 35 < 40 40-45 ---- 20-24 Y ---- < 40 >45 ---- >24 Y ---- < 40 40-60 >60 . Cholesterol/HDL Ratio 4.7 [facility] Comment: REF VALUES DESIRABLE < 3.4 HIGH RISK > 5.0 LDL 92 0 - 99 mg/dL [facility] Comment: . NEAR BORD AGE DESIRABLE OPTIMAL HIGH HIGH VERY HIGH 0-19 Y 0 - 109 --- 110-129 >/= 130 ---- 20-24 Y 0 - 119 --- 120-159 >/= 160 ---- >24 Y 0 - 99 100-129 130-159 160-189 >/=190 . VLDL 51(H) 0 - 40 mg/dL [facility] Triglycerides 255(H) 0 - 149 mg/dL [facility] Comment: . AGE DESIRABLE BORDERLINE HIGH HIGH [...] be performed immediately prior to Metamizole dosing. Non HDL Cholesterol 143 mg/dL [facility] Comment: AGE DESIRABLE BORDERLINE HIGH HIGH VERY HIGH 0-19 Y 0 - 119 120 - 144 >/= 145 >/= 160 20-24 Y 0 - 149 150 - 189 >/= 190 ---- >24 Y 30 MG/DL ABOVE LDL CHOLESTEROL GOAL . 06/16/2019 12:0 5 PM EST 06/16/2019 5:59 PM EST us Tom Morales MD LAB BLOOD ORDERABLES Final Result [facility] * (ABNORMAL) Comprehensive Metabolic Panel (06/16/2019 12:05 PM EST) Glucose 115(H) 74 - 99 mg/dL [facility] Sodium 136 136 - 145 mmol/L [facility] Potassium 5.4(H) 3.5 - 5.3 mmol/L [facility] Chloride 103 98 - 107 mmol/L [facility] Bicarbonate 25 21 - 32 mmol/L [facility] Anion Gap 13 10 - 20 mmol/L [facility] Urea Nitrogen 40(H) 6 - 23 mg/dL [facility] Creatinine 1.32(H) 0.50 - 1.05 mg/dL [facility] GLOMERULAR FILTRATION RATE-NON 39(A) >60 mL/min/1. 73m2 [facility] GLOMERULAR FILTRATION RATE- 47(A) >60 mL/min/1. 73m2 [facility] Comment: CALCULATIONS OF ESTIMATED GFR ARE PERFORMED USING THE MDRD STUDY EQUATION FOR THE IDMS-TRACEABLE CREATININE METHODS. CLIN CHEM 2007;53:766-72 Calcium 9.8 8.6 - 10.3 mg/dL [facility] Albumin 4.1 3.4 - 5.0 g/dL [facility] Alkaline Phosphatase 62 33 - 136 U/L [facility] Total Protein 7.5 6.4 - 8.2 g/dL [facility] AST 16 9 - 39 U/L [facility] Total Bilirubin 0.5 0.0 - 1.2 mg/dL [facility] ALT (SGPT) 12 7 - 45 U/L [facility] Comment: Patients treated with Sulfasalazine may generate falsely decreased results for ALT. 06/16/2019 12:0 5 PM EST 06/16/2019 5:59 PM EST Radha Lee MD LAB BLOOD ORDERABLES Final Result [facility] from Last 3 Months or Most Recently Relevant to Health Maintenance Insurance [facility] MEDICARE PART A AND B [facility] MEDICARE PART A AND B Care Teams Excellence Coach Relationship Specialty Start Date End Date Olivia Cazares MD PCP - General Family Medicine 09/17/23
--- OUTSIDE RECORDS SUMMARY | 2025-01-25 13:07 | XMS_ITS | Encounter Summary ---
Author Organization [facility] Address [address] [place] [address] Phone Care Team Providers Care As400 Analyst Name Role Phone Tom Morales MD Unavailable Tom Núñez MD Unavailable Olivia Rios MD Primary Care Provider [phone] Encounter Details Date Type Department Care Team (Late st Contact Info) Description 01/03/2021 Orders Only [facility] [address] [place] [address] Conversion, Onbase Social History Tobacco Use Types [...] Info) Description 07/25/2025 9:45 AM EST Appointment [place] [id number] [facility] [address] [place] [phone] 08/11/2025 11:10 AM EST Office Visit [address] [place] [phone] Tom Cobb DO [address] [facility] [address] [place] [address] Scheduled Orders Name Type Priority Associated Diagnoses Orde r Schedule OUTSIDE LAB SCAN Lab Ordered: 01/03/2021 documented as of this encounter Visit Diagnoses Not on filedocumented in this encounter Care Teams As400 Analyst Relationship Specialty Start Date End Date Tom Morales MD Retired From Practice PCP - [facility]P ACO Attributed Provider 10/12/21 01/10/22 Tom Morales MD Retired From Practice PCP - MSSP ACO Attributed Provider 01/11/23 10/12/23 Olivia Cazares MD Retired From Practice PCP - General Family Medicine 09/17/23 documented as of this encounter
[2025-01-25 13:45] LABS: Albumin Level 2.7 g/dL (3.4-5.0)
[2025-01-25 14:13] LABS: Hemoglobin 11.8 g/dL (12.0-16.0)
== END 2025-01-25 13:04 | disposition home or self-care (01) ==
LOC: LAB 13:03
PROVIDERS: Visit Provider Orthopaedic Surgery
DX: Z79.899 Other long term (current) drug therapy (principal); M81.0 Age-related osteoporosis without current pathological fracture
CPT/HCPCS: 36415; 82042; 82306; 83036; 85018; 87081

== ENCOUNTER 2025-02-07 15:39 | Outpatient (OUT) | payer MEDICARE, SELFPAY ==
--- OUTSIDE RECORDS SUMMARY | 2024-03-29 09:20 | XMS_ITS ---
Author Organization The [facility] in [place] Address [address] [place] [address] Care Team Providers Care Dry Folder Cloth Name Role Phone Olivia Cazares Primary Care Provider Annie Alcantara Unavailable [phone] REASON FOR VISIT nail care Medications Medication [...] Encounters Encounter Location Date Provider Diagnosis [facility] (PODIATRY) [address] [place] [address] [place] [address] 03/29/2024 Annie Gasca Type 2 diabetes mellitus [...] * Sheldon CMOB:[birth year] (78 yo F)Acc No.[id number]:03/29/2024 Nurse Visit Patient: Lexi SALAZAR Provider: Azul Gasca PA-C :1945 A ge:78 Y S ex:Female Date:03/29/2024 Address:[address] [place], [place] [address] Pcp:Olivia Cazares Check In:01:10 PM ESTCheck O [...] Gasca PA-C Date: 0 03/29/2024 [facility]Trina/Maryjanesmitting on: 0 02/07/2025 03:46 PM EDT History and Physical Notes * HPI (History of Present Illness) Category Sub-Category Detail Notes Category Not es General Patient in offi ce today for nail care. Nails were trimmed and filed today to her liking w/o incident.
--- OUTSIDE RECORDS SUMMARY | 2024-08-02 11:30 | XMS_ITS ---
Author Organization [facility] in [place] Address [address] [place] [address] Care Team Providers Care Applications System Analyst Name Role Phone Olivia Cazares Primary Care Provider Annie Alcantara Unavailable [phone] Allergies No Known Allergies REASON FOR VISIT [...] Encounters Encounter Location Date Provider Diagnosis [facility] (PODIATRY) [address] [place] [address] [place] [address] 08/02/2024 Annie Gasca Type 2 diabetes mellitus [...] * LUCRECIALATRICIAMaría MARTINEZra LDOB:1944 (79 yo F)Acc No.[id number]:08/02/2024 UNLOCKED PROGRESS NOTE Nurse Visit Patient: Lexi SALAZAR Provider: Azul Gasca PA-C :1945 A ge:79 Y S ex:Female Date:08/02/2024 Address:[address] [place], [place] [id number] Pcp:Olivia Cazares Check In:03:17 PM ESTCheck O [...] Electronic signature of Marcie Gasca PA-C on 02/07/2025 at 03:47 PM EDT Sign off status: Pending Visit Status: Gail RUIZ (Check Out) * Provider: Azul Gasca PA-C Date: 0 08/02/2024 Generated for Elham espinosa/Trina/Ironitting on: 0 02/07/2025 03:47 PM EDT History and Physical Notes * HPI (History of Present Illness) Category Sub-Category Detail Notes Category Not es General Nails 1-10 were trimmed and filed down to patients liking. No area of concern to toes.
--- OUTSIDE RECORDS SUMMARY | 2024-10-25 11:00 | XMS_ITS ---
Author Organization [facility] in [place] Address [address] [place] [address] Care Team Providers Care Program Engineer Name Role Phone Olivia Cazares Primary Care Provider Annie Alcantara Unavailable [phone] REASON FOR VISIT Nail Care Encounters Encounter Location Date Provider Diagnosis [facility] (PODIATRY) [address] [place] [address] [place] [address] 10/25/2024 Annie Gasca Plan Of Treatment No Information Progress Notes * Lexi CM LDOB:1944 (79 yo F)Acc No.[id number]:10/25/2024 UNLOCKED PROGRESS NOTE Nurse Visit Patient: Lexi SALAZAR Provider: Azul Gasca PA-C :1945 A ge:79 Y S ex:Female Date:10/25/2024 Address:[address] [place], [place] [id number] Pcp:Olivia Cazares Subjective: * Chief Complaints: * 1 . Nail Care. * Medical History: Objective: * Vitals: Assessment: Plan: * Treatment: * * Electronic signature of Marcie Gasca PA-C on 02/07/2025 at 03:46 PM EDT Sign off status: Pending Visit Status: O FF CANC (OFFICE CANCEL) * Provider: Azul Gasca PA-C Date: 0 10/25/2024 Generated for Printi ng/Faxing/eTransmitting on: 0 02/07/2025 03:46 PM EDT
--- OUTSIDE RECORDS SUMMARY | 2025-01-31 12:00 | XMS_ITS | Continuity of Care Document ---
Author Organization [facility] Address [address] [place] [address] Phone Care Team Providers Care General Office Assistant Name Role Phone Olivia Cazares MD Primary Care Provider Olivia Cazares MD Attending Provider Da Lozano II, MD Attending Provider Care Teams Patient Care [...] January 11, 2025 End: January 11, 2025 Patient Care Team Team Status: Active Member Role Status Dates Olivia Cazares MD Primary Care Provider Active Start: January 25, 2025 Da Lozano II, MD Attending Provider Active Start: January 25, 2025 Patient Care Team Team Status: Inactive Member Role Status Dates Olivia Cazares MD Primary Care Provider Active Start: January 31, 2025 End: January 31, 2025 Olivia Cazares MD Attending Provider Active St art: January 31, 2025 End: January 31, 2025 Chief Complaint and Reason for Visit Chief Complaint Admit Date UA:Tired November 15, 2024 3:16pm N39.0 A49.9 November 15, 2024 3:30pm A1C January 11, 2025 3:11p m Surgical Clearance January 31, 2025 3:29 pm Reason for Visit Admit Date UTI (urinary tract infection), bacterial November 15, 2024 3:16pm Acute on chronic systolic (congestive) h eart failure January 11, 2025 3:11pm CKD (chronic kidney disease) stage 4, GF R 15-29 ml/min January 11, 2025 3:11pm Hypertension January 11, 2025 3:11p m Morbid (severe) obesity due to excess ca lories January 11, 2025 3:11pm Osteoarthritis of left hip January 11 3:11pm Type 2 diabetes mellitus with hyperglyce mima January 11, 2025 3:11pm Allergies, Adverse Reactions, Alerts Allergen Type Severity Reaction Last Updated Verified Status Comments blue dye Allergy Moderate Nausea January 31, 2025 3:34pm Yes Active dye used with xray causes patient to vomit semaglutide Allergy Moderate nausea, vomiting January 31, 2025 3:34pm Yes Active adhesive tape Allergy Unknown rash January 31, 2025 3:34pm Yes Active Social History Smoking Status Status [...] to excess calories U nknown Active Other terminal gauger (current) drug therapy Unknown Active Primary osteoarthritis [...] 24hr Discont inued 0 .ROUTE .COMPLEX 30 January 01, 2024 8:42am January 12, 2024 4:21p m TAKE ONE TABLET BY MOUTH DAILY Gabapentin 300 mg capsule Discont inued 0 .ROUTE .COMPLEX 60 February 02, 2024 9:04am Septe mber 2023 2:28p m TAKE ONE CAPSULE BY MOUTH TWICE A DAY Ascorbic Acid (Vitamin C) 500 mg tablet Discont inued 0 .ROUTE .COMPLEX March 01, 2024 12:45p m October 22, 2024 7:03a m TAKE ONE TABLET BY MOUTH ONCE DAILY Ferrous Sulfate (Iron (Ferrous Sulfate)) 325 mg (65 mg iron) tablet Discont inued 325 MG PO every other day March 03, 2024 2:46pm 2023 8:26a m Oxybutynin Chloride 15 mg tablet extended release 24hr Discont inued 15 MG PO Daily 90 2023 8:19am 2024 11:36 am Gabapentin 300 mg capsule Discont inued 0 .ROUTE .COMPLEX 60 r 2023 8:27am 2024 11:36 am TAKE ONE CAPSULE BY MOUTH TWICE A DAY Insulin Glargine (Basaglar Kwikpen U-100 Insulin) 100 unit/mL (3 mL) insulin pen Discont inued 60 UNIT SUBCUT Every evening 54 90 Dece 2023 3:24pm October 22, 2024 7:06a m Oxybutynin Chloride 15 mg tablet extended release 24hr Discont inued 0 .ROUTE .COMPLEX 30 2024 11:36a m October 05, 2024 8:22a m TAKE ONE TABLET BY MOUTH ONCE DAILY Gabapentin 300 mg capsule Discont inued 0 .ROUTE .COMPLEX 60 2024 11:36a m Febru kaitlin 2024 1:39p m TAKE ONE CAPSULE [...] contact the information source for Protocol details. Unknown Gabapentin 300 mg capsule Discont inued 0 .ROUTE .COMPLEX 60 November 01, 2024 8:27am December 24, 2024 9:28a m TAKE ONE CAPSULE BY MOUTH TWICE A DAY Cholecalcif lexa (Vitamin D3) 125 mcg (5,000 unit) capsule Active 125 MCG PO .every other day November 10, 2024 11:53a m Unknown Insulin Glargine (Lantus Solostar U-100 Insulin) 100 unit/mL (3 mL) insulin pen Active 55 UNIT SUBCUT Daily 49.5 90 December 03, 2024 12:00a m Unknown Gabapentin 300 mg capsule Active 0 .ROUTE .COMPLEX December 24, 2024 9:28am TAKE ONE CAPSULE BY MOUTH TWICE A DAY Unknown Ferrous Sulfate (Iron (Ferrous Sulfate)) 325 mg (65 mg iron) tablet Active 325 MG PO tid January 26, 2025 12:00a m Unknown Atorvastati n 80 mg Tablet Discont inued [...] PO Daily Novemb er 2016 12:00a m Unknown Aspirin (Beth Low Dose Aspirin) 81 mg Tablet,Eloisa yed Release (Dr/Ec) Active 81 MG PO Daily Novemb er 2016 12:00a m Unknown Vitamin B Complex Tablet Discont inued 1 [facility] 12:[facility] m 2018 7:44a m Allopurinol (Zyloprim) 300 mg Tablet Active 300 MG PO Daily [facility] 12:00a m Unknown Furosemide (Lasix) 20 mg Tablet Discont inued 20 MG PO Daily as needed for Edema Novemb er 2016 12:00a m January 12, 2024 4:18p m Gabapentin 100 mg Capsule Discont inued 200 MG PO Twice [facility] 12:00[facility] m [facility] 2016 11:51 am Lisinopril 2.5 mg Tablet Discont inued 2.5 MG PO Daily [facility] 12:00a m 2018 7:43a m [...] s: STARTING AT 150MG AT BG CHECKS On [facility] er 2016 12:00a m [facility] shanita 2016 11:06 am Please contact the information source for Protocol details. Metoprolol Tartrate 25 mg Tablet Discont inued 25 MG PO Twice daily On [facility] er 2016 12:00a m [facility] shanita 2016 4:33p m Ascorbic Acid (Vitamin C) (Vitamin C) 500 mg Tablet Discont inued 500 MG PO Daily On [facility] er 2016 12:00a m Julua ry 2017 9:40a m Cholecalcif lexa (Vitamin D3) (Vitamin D3) 1,000 unit Capsule Discont inued 1000 UNITS PO Daily On [facility] er 2016 12:00a m [facility] shanita 2016 11:06 am Gabapentin 100 mg Capsule Discont inued 300 MG PO Daily [facility] 2016 12:00a m [facility] shanita 2016 11:51 am Carvedilol (Coreg) 12.5 mg Tablet Discont inued 25 MG PO Twice daily [facility] er 2016 1:00am 2018 1:13p m Spironolact one (Aldactone) 25 mg Tablet Discont inued 25 MG PO Every morning [facility] 2016 1:00am [email or web address] 4:27p m Nitroglycer in (Nitrostat) 0.4 mg Tablet, Sublingual Discont inued 0.4 MG SUBLIN GUAL Q5M as needed for Chest Pain [facility] 2016 1:00am [facility] [email or web address] 4:27p m Docusate Sodium (Colace) 100 mg Capsule Discont inued 100 MG PO Twice daily as needed for Constipatio n [facility] er 2016 1:00am January 12, 2024 4:21p m Rosuvastati n (Crestor) 5 mg Tablet Active 5 MG PO Daily at bedtime [facility] 2016 1:00am Unknown Insulin Glargine (Lantus U-100 Insulin) 100 unit/mL Solution Discont inued 40 UNIT SUBCUT Daily 0 [facility] 2016 11:05a m 2017 9:40a m Cholecalcif lexa (Vitamin D3) (Vitamin D3) 1,000 unit Capsule Discont inued 1000 UNIT PO Daily 0 [facility] 2016 11:05a m 2017 9:38a m Insulin [...] STARTING AT 150MG AT BG CHECKS 0 [facility] 2016 11:05a m 2017 9:40a m Please contact the information source for Protocol details. Gabapentin 300 mg capsule Discont inued 300 MG PO Twice daily 60 30 [facility] 2016 1:00am 2018 1:00a m September 11, 2017 8:48a m Docusate Sodium (Colace) 100 mg capsule Active 100 MG PO Bedtime January 12, 2024 4:15pm Unknown Ferrous Sulfate (Iron (Ferrous Sulfate)) 325 mg (65 mg iron) tablet Discont inued 325 MG PO every other day 90 January 25, 2024 10:20a m Augus t 2023 2:46p m Ferrous Sulfate (Ferosul) 325 mg (65 mg iron) tablet Discont inued 325 MG PO .Every other day Decemb er 2023 1:00am October 22, 2024 7:04a [...] MG PO Daily September 11, 2017 1:00am Febru kaitlin 2023 4:26p m Gabapentin 100 mg Capsule [...] 25 MG PO Twice daily 2018 1:00am Unknown Tramadol 50 mg tablet Discont inued 50 MG PO EVERY 4-6 HOURS as needed for pain 20 7 2018 1:00am ry 2018 1:00a m ry 2018 1:02a m Ciprofloxac in Hcl (Cipro) 500 mg tablet Discont inued 500 MG PO Q12H 2023 1:00am Dece shanita 2023 11:58 am [...] PO Bedtime January 12, 2024 12:00a m Unknown Cholecalcif lexa (Vitamin D3) 125 mcg (5,000 unit) capsule Discont inued 125 MCG PO Daily January 12, 2024 12:00a m Novem shanita 2023 11:18 am Furosemide 40 mg tablet Active 40 MG PO Daily January 12, 2024 12:00a m Unknown Oxybutynin Chloride 15 mg tablet extended release 24hr Discont inued 15 MG PO Daily January 12, 2024 4:20pm Augus t 2023 2:07p m Cholecalcif lexa (Vitamin D3) 125 mcg (5,000 unit) capsule Discont inued 125 MCG PO .every other day b er 2023 11:18a m November 10, 2024 11:53 am Oxybutynin Chloride 15 mg tablet extended release 24hr Discont inued 15 MG PO Daily March 05, 2024 2:06pm Septe 2023 8:20a m Lisinopril 5 mg tablet Discont inued 5 MG PO Daily 2024 1:00am October 22, 2024 7:06a m Ciprofloxac in Hcl 250 mg tablet Discont inued 250 MG PO Daily 2023 12:00a m 2023 10:57 am Sulfamethox azole-Trime thoprim 800-160 mg tablet Discont inued 1 TAB PO Twice daily October 23, 2023 12:00a m November 27, 2023 2:06p m Oxybutynin Chloride 15 mg tablet extended release 24hr Discont inued 15 MG PO Daily December 11, 2023 12:00a m January 01, 2024 8:43a m Gabapentin 300 mg capsule Discont inued 300 MG PO Twice daily 2023 2:26pm Octob er 2023 8:27a m Ciprofloxac in Hcl 250 mg tablet Discont inued 250 MG PO Daily 5 Novemb er 2023 1:24pm 2023 8:25a m Insulin Glargine (Basaglar Kwikpen [...] PO Q7D January 13, 2025 12:00a m Unknown Ascorbic Acid (Vitamin C) 1,000 mg tablet Active 1000 MG PO Daily January 31, 2025 12:00a m Complies with drug therapy Immunizations Immunization Event Date Not Given Reason Dose Number Interdisciplinary Professor Lot Number Vaccine Information Statement (VIS) Detail Administration Location COVID-19 mRNA, Comirnaty (Reevoo) April 13, 2021 COVID-19 mRNA, Comirnaty (Reevoo) August 30, 2020 COVID-19 mRNA, Comirnaty (Reevoo) August 09, 2020 COVID-19 mRNA Bivalent Booster (Reevoo) June 17, 2022 Medical Equipment Device Date Implanted Date Explanted Device Deta ils CL STENT XIENCE ALP 2.25 X 15 June 24, 2017 CL STENT XIENCE ALP 2.5 X 38 June 24, 2017 CL STENT XIENCE ALP 3.0 X 18 June 24, 2017 STENT PALMAZ BLUE 7 X 24 135CM September 11, 2017 Polymeric ureteral stent October 22, 2024 INEZ: [id number] Issuing Agency: [facility] Device Id: [id number] Expiration Date: 2027-07-25 Lot Number: [id number] Polymeric ureteral stent October 22, 2024 INEZ: [id number] Issuing Agency: 1 Device Id: [id number] Expiration Date: 2028-05-21 Lot Number: [id number] GRAFT HEMASHIELD [id number] July 20, 2018 IR STENT SMART 9 X 40 120 CM July 20, 2018 Polymeric ureteral stent January 23, 2024 2024 INEZ: [id number] Issuing Agency: [facility] Device Id: [id number] Expiration Date: 2027-12-26 Lot Number: [id number] Polymeric ureteral stent 2024 October 22, 2024 INEZ: [id number] Issuing Agency: [facility] Device Id: [id number] Expiration Date: 2028-05-01 Lot Number: [id number] Polymeric ureteral stent 2024 October 22, 2024 INEZ: [id number] Issuing Agency: [facility] Device Id: [id number] Expiration Date: 2028-05-01 Lot Number: [id number] Procedures Procedure Date Performed Status Urine Culture November 15, 2024 completed Relevant Diagnostic Tests and/or Laboratory Data Laboratory Results Test Collection Date/Time Result Date/Time Result Interpretation Reference Range Result Comment Performing Site Urine Color November 15, 2024 3:49pm November 15, 2024 3:52pm Yellow Bedside Hemoglob in A1c January 11, 2025 3:39pm January 11, 2025 3:41pm 7.6 % Miscella neous Test January 25, 2025 1:18pm January 25, 2025 1:18pm COMMENT . Test Ordered: [id number] Nicotine and Metabolite, QuantNicoti ne <1.0 ng/mL BN Reference Range: .This test was developed and its performance characteris ticsdetermi ovidio by [facility]. It has not been cleared orapproved by the Food and Drug Administrat ion.Nicotin e levels greater than 2.0 are consistent with theuse of tobacco or tobacco cessation products.Co tinine <1.0 ng/mL BN Reference Range: .This test was developed and its performance characteris ticsdetermi ovidio by [facility]. It has not been cleared orapproved by the Food and Drug Administrat ion.Cotinin e levels greater than 20.0 are consistent with theuse of tobacco or tobacco cessation products.Pe rformed at: [facility] [address] [id number] b Director: Navneet Carcamo MD, Phone: [phone] erformed at: [facility] [place], [place] [id number] b Director: Mohan Talbert PhD, Phone: [phone] [place] xy Vitamin D Total January 25, 2025 1:18pm January 25, 2025 1:18pm 62.6 ng/mL <20 ng/mL Vit D [id number] -<30 ng/mL Vit D insufficien t30-100 ng/mL Vit D sufficient> 100 ng/mL Potential Toxicity Hemoglob in January 25, 2025 1:18pm January 25, 2025 1:18pm 11.8 g/dL Below low normal 12.0-16.0 Estimate d Average Glucose January 25, 2025 1:18pm January 25, 2025 1:18pm 160 mg/dL Albumin January 25, 2025 1:18pm January 25, 2025 1:18pm 2.7 g/dL Below low normal 3.4-5.0 Urine Appearan ce November 15, 2024 3:49pm November 15, 2024 3:52pm cloudy Hemoglob in A1c January 25, 2025 1:18pm January 25, 2025 1:18pm 7.2 % Above high normal 4.5-6.2 ADA RECOMMENDED LIMIT 4.0 - 6.0ADA THERAPEUTIC TARGET < 7.0ACTION SUGGESTED> 7.0 Urine Specific [place] November 15, 2024 3:49pm November 15, 2024 [...] 2024 3:49pm November 15, 2024 3:52pm ++ Microbiology Results Procedure Source Result Collection Date/Time Result Date/Time Result Comment Performing Site Urine Culture Urine 2 Days November 15, 2024 3:30pm November 17, 2024 9:20am [facility] [id number] [address] [place] [id number] Vital Signs Vital Reading Result Reference Range Collection Date/Time Height 59 [in_i] January 11, 2025 3:20pm Weight 74.84 kg January 11, 2025 3:20pm Heart Rate 72 /min 60-100 January 11, 2025 3:20pm Oxygen saturation by Pulse oximetry 99 % 95-10 0 January 11, 2025 3:20pm BP Systolic 126 mm[Hg] 100-140 January 11, 2025 3:20pm BP Diastolic 80 mm[Hg] 60-100 January 11, 2025 3:20pm BMI (Body Mass Index) 33.3 kg/m2 January 112024 3:20pm Height 59 [in_i] January 31, 2025 3:30pm Weight 71.21 kg January 31, 2025 3:30pm Heart Rate 76 /min 60-100 January 31, 2025 3:30pm BP Systolic 153 mm[Hg] 100-140 January 31, 2025 3:30pm BP Diastolic 75 mm[Hg] 60-100 January 31, 2025 3:30pm BMI (Body Mass Index) 31.7 kg/m2 January 122024 3:30pm Advance Directives Advance Directive Response Recorded Date/ Time Advance Directives No May 12, 2017 12:05pm Insurance Providers Guarantor Lexi Cm Address [address] [place] [id number] Contact Info. Home Phone: Payer Policy Id Subscriber's Name Subscriber Id Effectiv e Date Expiration Date Medicare [id number] Lexi Cm [id number] [facility] Health Claims [id number] Lexi Cm [id number] Encounters Encounter Location(s) Arrival/Admit Date Discharge/Depart Date Provider(s) Departed Physician/Prov ider Office Visit -[facility] November 15, 2024 3:16pm November 15, 2024 3:53pm Olivia Cazares MD Departed Referred -Lab [facility] November 15, 2024 3:30pm November 15, 2024 3:31pm Olivia Cazares MD Departed Physician/Prov ider Office Visit -[facility] January 11, 2025 3:11pm January 11, 2025 3:57pm Olivia Cazares MD Non-patient / Non-visit -[facility] January 25, 2025 1:18pm Chandra Ryan MD Departed Physician/Prov ider Office Visit -[facility] January 31, 2025 3:29pm January 31, 2025 3:59pm Olivia Cazares MD Recent Diagnosis Onset Date Admit Date UTI (urinary tract infection), bacterial Unknown November 15, 2024 3:16pm Acute on chronic systolic (congestive) heart trey lure Unknown January 11, 2025 3:11pm CKD (chronic kidney disease) stage 4, GFR 15-29 ml/min Unknown January 11, 2025 3:11pm Hypertension Unknown January 11, 2025 3 :11pm Morbid (severe) obesity due to excess calories U nknown January 11, 2025 3:11pm Osteoarthritis of left hip Unknown January 11, 2025 3:11pm Type 2 diabetes mellitus with hyperglycemia Unkn own January 11, 2025 3:11pm Assessments Diagnosis Onset Date Resolution Status Admit Date UTI (urinary tract infection ), bacterial acute November 15, 2024 3: 16pm Acute on chronic systolic (congestive) heart failure acute January 11, 2025 3:11pm CKD (chronic kidney disease) stage 4, GFR 15-29 ml/min acute January 11 3:11pm Hypertension acute January 11 3:11pm Morbid (severe) obesity due to excess calories acute January 11, 2025 3 :11pm Osteoarthritis of left hip acute January 11, 2025 3:11pm Type 2 diabetes mellitus wit h hyperglycemia acute January 11, 2025 3 :11pm Plan of Treatment Author Olivia Cazares [facility] Authored January 11, 2025 4:24p m Take medication as prescribe d, keep follow up appointments, get any testing that's been ordered done in a timely fashion. Do not smoke. Call if any questions or problems.For Diabetes: Patient is advised to work on healthy diet choices and appropriate servings, weight control, regular exercise as directed, and reduce fat intake. Check home blood sugars as directed. Check feet regularly to be sure no sores or numbness are developing. Call if low sugar reactions occur, and be aware that lower sugars may happen with increased exercise. Continue present medications. Followup w Cardiology as scheduled. Has followup w Dr. Ashby in November Continue home meds - lisinopril, coreg Will message her orthopedic surgeon with the information of the a1C of 7.6. Will check if surgery could be an option for her again. Continue healthy diet. Future Tests Future scheduled test information is unavailable Pending Tests Pending diagnostic test information is unavailable Future Visits Future appointment information is unavailable Referrals to Other Providers Referral information is unavailable Future Procedures Future procedure information is unavailable Future Medications Future medication information is unavailable Patient Instructions Patient instructions are unavailable
--- OUTSIDE RECORDS SUMMARY | 2025-02-07 15:46 | XMS_ITS | Encounter Summary ---
Author Organization [facility] Address [address] [place] [address] Phone Care Team Providers Care Senior Actuarial Analyst Name Role Phone Olivia Cazares MD Primary Care Provider [phone] Encounter Details Date Type Department Care Team (Late st Contact Info) Description 06/28/2024 Scanned Document [facility] [address] [place] [phone] Scanning, Generic Provider Social History Tobacco Use [...] Info) Description 07/25/2025 9:45 AM EST Appointment [address] [place] [phone] 08/11/2025 11:10 AM EST Office Visit [address] [place] [phone] Tom Cobb DO [address] [place] [address] [address], [address] [place], [place] [phone] documented as of this encounter Visit Diagnoses Not on filedocumented in this encounter Additional Health Concerns Assessment Noted Time A fall risk assessment has been complete d for the patient 09/17/2023 1:06 PM EST documented as of this encounter Care Teams Senior Actuarial Analyst Relationship Specialty Start Date End Date Olivia Cazares MD PCP - General Family Medicine 09/17/23 documented as of this encounter
--- OUTSIDE RECORDS SUMMARY | 2025-02-07 15:46 | XMS_ITS | Encounter Summary ---
Author Organization [facility] Address [address] [place] [address] Phone Care Team Providers Care Warper Fixer Name Role Phone Olivia Cazares MD Primary Care Provider [phone] Encounter Details Date Type Department Care Team (Late st Contact Info) Description 01/23/2024 Scanned Document [facility] [address] [place] [phone] Scanning, Generic Provider Social History Tobacco Use [...] Info) Description 07/25/2025 9:45 AM EST Appointment [address] [place] [phone] 08/11/2025 11:10 AM EST Office Visit [address] [place] [phone] Tom Cobb DO [address] [place] [address] [address], [address] [place], [place] [phone] documented as of this encounter Procedures Procedure [...] documented as of this encounter Care Teams Warper Fixer Relationship Specialty Start Date End Date Olivia Cazares MD PCP - General Family Medicine 09/17/23 documented as of this encounter
--- OUTSIDE RECORDS SUMMARY | 2025-02-07 15:46 | XMS_ITS | Encounter Summary ---
Author Organization [facility] Address [address] [place] [address] Phone Care Team Providers Care Lime Spreader Name Role Phone Olivia Cazares MD Primary Care Provider [phone] Encounter Details Date Type Department Care Team (Late st Contact Info) Description 05/21/2024 Scanned Document [facility] [address] [place] [phone] Scanning, Generic Provider Social History Tobacco Use [...] Info) Description 07/25/2025 9:45 AM EST Appointment [address] [place] [phone] 08/11/2025 11:10 AM EST Office Visit [address] [place] [phone] Tom Cobb DO [address] [place] [address] [address], [address] [place], [place] [phone] documented as of this encounter Visit Diagnoses Not on filedocumented in this encounter Additional Health Concerns Assessment Noted Time A fall risk assessment has been complete d for the patient 09/17/2023 1:06 PM EST documented as of this encounter Care Teams Lime Spreader Relationship Specialty Start Date End Date Olivia Cazares MD PCP - General Family Medicine 09/17/23 documented as of this encounter
--- OUTSIDE RECORDS SUMMARY | 2025-02-07 15:46 | XMS_ITS | Encounter Summary ---
Author Organization [facility] Address [address] [place] [address] Phone Care Team Providers Care Loss Prevention Officer Name Role Phone Olivia Cazares MD Primary Care Provider [phone] Encounter Details Date Type Department Care Team (Late st Contact Info) Description 01/14/2024 Patient Risk Score [facility] [address] [facility] [address] [place] [address] Social History Tobacco Use Types [...] Info) Description 07/25/2025 9:45 AM EST Appointment [place] [place] [phone] 08/11/2025 11:10 AM EST Office Visit [address] [place] [phone] Tom Cobb DO [address] [facility] [address], [address] [place], [place] [phone] documented as of this encounter Visit Diagnoses Not on filedocumented in this encounter Additional Health Concerns Assessment Noted Time A fall risk assessment has been complete d for the patient 09/17/2023 1:06 PM EST documented as of this encounter Care Teams Loss Prevention Officer Relationship Specialty Start Date End Date Olivia Cazares MD PCP - General Family Medicine 09/17/23 documented as of this encounter
--- OUTSIDE RECORDS SUMMARY | 2025-02-07 15:46 | XMS_ITS | Encounter Summary ---
Author Organization [facility] Address [address] [place] [address] Phone Care Team Providers Care Emergency Management Specialist Name Role Phone Olivia Cazares MD Primary Care Provider [phone] Encounter Details Date Type Department Care Team (Late st Contact Info) Description 01/25/2024 Scanned Document [facility] [address] [place] [phone] Scanning, Generic Provider Social History Tobacco Use [...] Description 07/25/2025 9:45 AM EST Appointment [address] [place] [address] 08/11/2025 11:10 AM EST Office Visit [address] [place] [address] Tom Cobb DO [address] [place] [address] 2, [address] [place], [place] [phone] documented as of this encounter Visit Diagnoses Not on filedocumented in this encounter Additional Health Concerns Assessment Noted Time A fall risk assessment has been complete d for the patient 09/17/2023 1:06 PM EST documented as of this encounter Care Teams Emergency Management Specialist Relationship Specialty Start Date End Date Olivia Cazares MD PCP - General Family Medicine 09/17/23 documented as of this encounter
--- OUTSIDE RECORDS SUMMARY | 2025-02-07 15:46 | XMS_ITS | Encounter Summary ---
Author Organization [facility] Address [address] [place] [address] Phone Care Team Providers Care Reinforcing Iron Worker Helper Name Role Phone Olivia Cazares MD Primary Care Provider [phone] Encounter Details Date Type Department Care Team (Late st Contact Info) Description 01/22/2024 Scanned Document [facility] [address] [place] [phone] Scanning, Generic Provider Social History Tobacco Use [...] Info) Description 07/25/2025 9:45 AM EST Appointment [address] [place] [address] 08/11/2025 11:10 AM EST Office Visit [address] [place] [address] Tom Cobb DO [address] [place] [address] 2, [address] [place], [place] [phone] documented as of this encounter Visit Diagnoses Not on filedocumented in this encounter Additional Health Concerns Assessment Noted Time A fall risk assessment has been complete d for the patient 09/17/2023 1:06 PM EST documented as of this encounter Care Teams Reinforcing Iron Worker Helper Relationship Specialty Start Date End Date Olivia Cazares MD PCP - General Family Medicine 09/17/23 documented as of this encounter
--- OUTSIDE RECORDS SUMMARY | 2025-02-07 15:47 | XMS_ITS | Encounter Summary ---
Author Organization [facility] Address [address] [place] [address] Phone Care Team Providers Care Hosting Engineer Name Role Phone Tom Morales MD Unavailable Tom Núñez MD Unavailable Olivia Rios MD Primary Care Provider [phone] Encounter Details Date Type Department Care Team (Late st Contact Info) Description 12/14/2021 Orders Only [facility] [address] [place] [address] Conversion, Onbase Social History Tobacco Use Types [...] Info) Description 07/25/2025 9:45 AM EST Appointment [place] [address] [facility] [address] [place] [address] 08/11/2025 11:10 AM EST Office Visit [address] 250 [place] [address] Tom Cobb DO 703 [facility] 2, [address] [place] [address] Scheduled Orders Name Type Priority Associated Diagnoses Orde r Schedule OUTSIDE LAB SCAN Lab Ordered: 12/14/2021 documented as of this encounter Visit Diagnoses Not on filedocumented in this encounter Care Teams Hosting Engineer Relationship Specialty Start Date End Date Tom Morales MD Retired From Practice PCP - MSSP ACO Attributed Provider 10/12/21 01/10/22 Tom Morales MD Retired From Practice PCP - MSSP ACO Attributed Provider 01/11/23 10/12/23 Olivia Cazares MD Retired From Practice PCP - General Family Medicine 09/17/23 documented as of this encounter
--- OUTSIDE RECORDS SUMMARY | 2025-02-07 15:47 | XMS_ITS | Encounter Summary ---
Author Organization [facility] Address [address] [place] [address] Phone Care Team Providers Care Auto Motor Mechanic Name Role Phone Tom Morales MD Unavailable Tom Núñez MD Unavailable Olivia Rios MD Primary Care Provider [phone] Encounter Details Date Type Department Care Team (Late st Contact Info) Description 01/11/2021 Orders Only [facility] [address] [place] [address] Conversion, Onbase Social History Tobacco Use Types [...] Info) Description 07/25/2025 9:45 AM EST Appointment [place] [address] [facility] [address] [place] [address] 08/11/2025 11:10 AM EST Office Visit [address] [place] [address] Tom Cobb DO 703 [facility] 2, [address] [place] [address] Scheduled Orders Name Type Priority Associated Diagnoses Orde r Schedule OUTSIDE LAB SCAN Lab Ordered: 01/11/2021 documented as of this encounter Visit Diagnoses Not on filedocumented in this encounter Care Teams Auto Motor Mechanic Relationship Specialty Start Date End Date Tom Morales MD Retired From Practice PCP - MSSP ACO Attributed Provider 10/12/21 01/10/22 Tom Morales MD Retired From Practice PCP - MSSP ACO Attributed Provider 01/11/23 10/12/23 Olivia Cazares MD Retired From Practice PCP - General Family Medicine 09/17/23 documented as of this encounter
--- OUTSIDE RECORDS SUMMARY | 2025-02-07 15:47 | XMS_ITS | Encounter Summary ---
Author Organization [facility] Address [address] [place] [address] Phone Care Team Providers Care Graphic Art Designer Name Role Phone Olivia Cazares MD Primary Care Provider [phone] Encounter Details Date Type Department Care Team (Late st Contact Info) Description 12/16/2023 Patient Risk Score [facility] Care Management [facility] [facility] [address] [place] [address] Social History Tobacco Use Types [...] Info) Description 07/25/2025 9:45 AM EST Appointment [place] [place] [address] 08/11/2025 11:10 AM EST Office Visit [address] 250 [place] [address] Tom Cobb DO 703 [facility] 2, [address] 250 [place], [place] [phone] documented as of this encounter Visit Diagnoses Not on filedocumented in this encounter Additional Health Concerns Assessment Noted Time A fall risk assessment has been complete d for the patient 09/17/2023 1:06 PM EST documented as of this encounter Care Teams Graphic Art Designer Relationship Specialty Start Date End Date Olivia Cazares MD PCP - General Family Medicine 09/17/23 documented as of this encounter
--- OUTSIDE RECORDS SUMMARY | 2025-02-07 15:47 | XMS_ITS | Encounter Summary ---
Author Organization [facility] Address [address] [place] [address] Phone Care Team Providers Care Washhouse Worker Name Role Phone Tom Morales MD Unavailable Tom Núñez MD Unavailable Olivia Rios MD Primary Care Provider [phone] Encounter Details Date Type Department Care Team (Late st Contact Info) Description 01/02/2021 Orders Only [facility] [address] [place] [address] Conversion, Onbase Social History Tobacco Use Types [...] Info) Description 07/25/2025 9:45 AM EST Appointment [place] [address] [place] [address] [place] [address] 08/11/2025 11:10 AM EST Office Visit [address] 250 [place] [address] Tom Cobb DO 703 [facility] 2, [address] [place] [address] Scheduled Orders Name Type Priority Associated Diagnoses Orde r Schedule OUTSIDE LAB SCAN Lab Ordered: 01/02/2021 OUTSIDE LAB SCAN Lab Ordered: 01/02/2021 documented as of this encounter Visit Diagnoses Not on filedocumented in this encounter Care Teams Washhouse Worker Relationship Specialty Start Date End Date Tom Morales MD Retired From Practice PCP - MSSP ACO Attributed Provider 10/12/21 01/10/22 Tom Morales MD Retired From Practice PCP - MSSP ACO Attributed Provider 01/11/23 10/12/23 Olivia Cazares MD Retired From Practice PCP - General Family Medicine 09/17/23 documented as of this encounter
--- OUTSIDE RECORDS SUMMARY | 2025-02-07 15:47 | XMS_ITS | Encounter Summary ---
Author Organization [facility] Address [address] [place] [address] Phone Care Team Providers Care Sheet Rock Installation Helper Name Role Phone Tom Morales MD, Marcia E MD Primary Care Provider [phone] Encounter Details Date Type Department Care Team (Late st Contact Info) Description 07/16/2023 Patient Risk Score [facility] Care Management [address] [place] [address] Social History Tobacco Use Types [...] Info) Description 07/25/2025 9:45 AM EST Appointment [place] [place] [address] 08/11/2025 11:10 AM EST Office Visit [address] [place] [address] Tom Cobb DO 703 [facility] 2, [address] [place], [place] [phone] documented as of this encounter Visit Diagnoses Not on filedocumented in this encounter Care Teams Sheet Rock Installation Helper Relationship Specialty Start Date End Date Tom Morales MD Retired From Practice PCP - MSSP ACO Attributed Provider 01/11/23 10/12/23 Olivia Cazares MD Retired From Practice PCP - General Family Medicine 09/17/23 documented as of this encounter
--- OUTSIDE RECORDS SUMMARY | 2025-02-07 15:47 | XMS_ITS | Encounter Summary ---
Author Organization [facility] Address [address] [place] [address] Phone Care Team Providers Care Abstract Maker Name Role Phone Tom Morales MD Unavailable Tom Núñez MD Unavailable Olivia Rios MD Primary Care Provider [phone] Encounter Details Date Type Department Care Team (Late st Contact Info) Description 11/23/2020 Orders Only [facility] [address] [place] [address] Conversion, Onbase Social History Tobacco Use Types [...] Info) Description 07/25/2025 9:45 AM EST Appointment [place] [address] [facility] [address] [place] [address] 08/11/2025 11:10 AM EST Office Visit [address] [place] [address] Tom Cobb DO 703 [facility] 2, [address] [place] [address] Scheduled Orders Name Type Priority Associated Diagnoses Orde r Schedule OUTSIDE LAB SCAN Lab Ordered: 11/23/2020 documented as of this encounter Visit Diagnoses Not on filedocumented in this encounter Care Teams Abstract Maker Relationship Specialty Start Date End Date Tom Morales MD Retired From Practice PCP - MSSP ACO Attributed Provider 10/12/21 01/10/22 Tom Morales MD Retired From Practice PCP - MSSP ACO Attributed Provider 01/11/23 10/12/23 Olivia Cazares MD Retired From Practice PCP - General Family Medicine 09/17/23 documented as of this encounter
--- OUTSIDE RECORDS SUMMARY | 2025-02-07 15:47 | XMS_ITS | Encounter Summary ---
Author Organization [facility] Address [address] [address] Phone Care Team Providers Care Moving Worker Name Role Phone Tom Morales MD Unavailable Tom Núñez MD Unavailable Olivia Rios MD Primary Care Provider [phone] Encounter Details Date Type Department Care Team (Late st Contact Info) Description 01/03/2021 Orders Only [facility] [address] [place] [address] Conversion, Onbase Social History Tobacco Use Types [...] Info) Description 07/25/2025 9:45 AM EST Appointment [place] [address] [facility] [address] [place] [address] 08/11/2025 11:10 AM EST Office Visit [address] [place] [address] Tom Cobb DO 703 [facility] 2, [address] [place] [address] Scheduled Orders Name Type Priority Associated Diagnoses Orde r Schedule OUTSIDE LAB SCAN Lab Ordered: 01/03/2021 documented as of this encounter Visit Diagnoses Not on filedocumented in this encounter Care Teams Moving Worker Relationship Specialty Start Date End Date Tom Morales MD Retired From Practice PCP - MSSP ACO Attributed Provider 10/12/21 01/10/22 Tom Morales MD Retired From Practice PCP - MSSP ACO Attributed Provider 01/11/23 10/12/23 Olivia Cazares MD Retired From Practice PCP - General Family Medicine 09/17/23 documented as of this encounter
--- OUTSIDE RECORDS SUMMARY | 2025-02-07 15:47 | XMS_ITS | Clinical Summary ---
Author Organization [facility] Address [address] [place] [address] Phone Care Team Providers Care Nurse'S Aides Teacher Name Role Phone Olivia Cazares MD Primary Care Provider [phone] Allergies Active Allergy Reactions Criticality Noted Date Comments Dez Inhibitors Other Low 07/08/2023 Atorvastatin Myalgia Medium 07/08/2023 Spironolactone Other Low 07/08/2023 Ftljodi-Dhz-Ewg Reductase Inhibitors Myalgia Low 07/08/2023 Medications allopurinol [...] July 2018 open AAA repair Left subclavian DIGITAL COORDINATOR and stenting Right external iliac DIGITAL COORDINATOR stenting Left common iliac intervention R ICA [...] 09/17/2023 History of angioplasty 07/08/202308/11 History of NC (myocardial infarction) 07/08/2023 08/11/2024 Encounters Date Type Department Care Team Description 12/23/[address] [address] Tom Morales MD History of [...] Info) Description 07/25/2025 9:45 AM EST Appointment [address] [address] 08/11/2025 11:10 AM EST Office Visit [address] [address] Tom Cobb DO [address] [place] [address] 2, [address] [address] Health Maintenance Due Date Last Done Comments [...] age to complete this topic HPV Vaccines Aged Out No longer eligi ble based on patient's age to complete this topic Hepatitis A Vaccines Aged Out No long [...] 12:05 PM EST) Hemoglobin A1C 7.5 % [facility] Comment: Diagnosis of Diabetes-Adults Non-Diabetic: < or = 5.6% Increased risk for developing diabetes: 5.7-6.4% Diagnostic of diabetes: > or = 6.5% . Monitoring of Diabetes Age (y) Therapeutic Goal (%) Adults: >18 <7.0 Pediatrics: 13-18 <7.5 7-12 <8.0 0- 6 7.5-8.5 [employer]. Diabetes Care 33(S1), Jul 2009. Estimated Average Glucose 169 MG/DL [facility] 06/16/2019 12:0 5 PM EST 06/16/2019 11:43 PM EST us Radha Lee MD LAB BLOOD ORDERABLES Final Result [facility] * (ABNORMAL) Lipid Panel (06/16/2019 12:05 PM EST) Cholesterol 182 0 - 199 mg/dL [facility] Comment: . AGE DESIRABLE BORDERLINE HIGH [...] prior to Metamizole dosing. HDL 39.0(A) mg/dL [facility] Comment: . AGE VERY LOW LOW NORMAL HIGH 0-19 Y < 35 < 40 40-45 ---- 20-24 Y ---- < 40 >45 ---- >24 Y ---- < 40 40-60 >60 . Cholesterol/HDL Ratio 4.7 [facility] Comment: REF VALUES DESIRABLE < 3.4 HIGH RISK > 5.0 LDL 92 0 - 99 mg/dL [facility] Comment: . NEAR BORD AGE DESIRABLE OPTIMAL HIGH HIGH VERY HIGH 0-19 Y 0 - 109 --- 110-129 >/= 130 ---- 20-24 Y 0 - 119 --- 120-159 >/= 160 ---- >24 Y 0 - 99 100-129 130-159 160-189 >/=190 . VLDL 51(H) 0 - 40 mg/dL [facility] Triglycerides 255(H) 0 - 149 mg/dL [facility] Comment: . AGE DESIRABLE BORDERLINE HIGH [...] Metamizole dosing. Non HDL Cholesterol 143 mg/dL [facility] Comment: AGE DESIRABLE BORDERLINE HIGH HIGH VERY HIGH 0-19 Y 0 - 119 120 - 144 >/= 145 >/= 160 20-24 Y 0 - 149 150 - 189 >/= 190 ---- >24 Y 30 MG/DL ABOVE LDL CHOLESTEROL GOAL . 06/16/2019 12:0 5 PM EST 06/16/2019 5:59 PM EST us Tom Morales MD LAB BLOOD ORDERABLES Final Result [facility] * (ABNORMAL) Comprehensive Metabolic Panel (06/16/2019 12:05 PM EST) Glucose 115(H) 74 - 99 mg/dL [facility] Sodium 136 136 - 145 mmol/L [facility] Potassium 5.4(H) 3.5 - 5.3 mmol/L [facility] Chloride 103 98 - 107 mmol/L [facility] Bicarbonate 25 21 - 32 mmol/L [facility] Anion Gap 13 10 - 20 mmol/L [facility] Urea Nitrogen 40(H) 6 - 23 mg/dL [facility] Creatinine 1.32(H) 0.50 - 1.05 mg/dL [facility] GLOMERULAR FILTRATION RATE-NON 39(A) >60 mL/min/1. 73m2 [facility] GLOMERULAR FILTRATION RATE- 47(A) >60 mL/min/1. 73m2 [facility] Comment: CALCULATIONS OF ESTIMATED GFR ARE PERFORMED USING THE MDRD STUDY EQUATION FOR THE IDMS-TRACEABLE CREATININE METHODS. CLIN CHEM 2007;53:766-72 Calcium 9.8 8.6 - 10.3 mg/dL [facility] Albumin 4.1 3.4 - 5.0 g/dL [facility] Alkaline Phosphatase 62 33 - 136 U/L [facility] Total Protein 7.5 6.4 - 8.2 g/dL [facility] AST 16 9 - 39 U/L [facility] Total Bilirubin 0.5 0.0 - 1.2 mg/dL [facility] ALT (SGPT) 12 7 - 45 U/L [facility] Comment: Patients treated with Sulfasalazine may generate falsely decreased results for ALT. 06/16/2019 12:0 5 PM EST 06/16/2019 5:59 PM EST us Radha Lee MD LAB BLOOD ORDERABLES Final Result [facility] from Last 3 Months or Most Recently Relevant to Health Maintenance Insurance [employer] MEDICARE PART A AND B [employer] Member Subscriber Plan / Payer ( fective 2022-Present) Name:Lexi Cm Relation to Subscriber:Self Name:Lexi Cm Payer ID:Not on file Group ID:Not on file Type:Not on file Address: [facility] [address] [place] [phone] MEDICARE PART A AND B Care Teams Nurse'S Aides Teacher Relationship Specialty Start Date End Date Olivia Cazares MD PCP - General Family Medicine 09/17/23
--- OUTSIDE RECORDS SUMMARY | 2025-02-07 15:47 | XMS_ITS | Encounter Summary ---
Author Organization [facility] Address [address] [place] [address] Phone Care Team Providers Care Staff Internist Office Based Only Name Role Phone Tom Morales MD, Marcia E MD Primary Care Provider [phone] Encounter Details Date Type Department Care Team (Late st Contact Info) Description 01/30/[address] [facility] [address] [place] [address] Conversion, Onbase Social History Tobacco Use Types [...] Info) Description 07/25/2025 9:45 AM EST Appointment [place] [address] [facility] [address] [place] [address] 08/11/2025 11:10 AM EST Office Visit [address] [place] [address] Tom Cobb DO 703 [facility] 2, [facility] 250 [place] [address] Scheduled Orders Name Type Priority Associated Diagnoses Orde r Schedule OUTSIDE LAB SCAN Lab Ordered: 01/30/2022 documented as of this encounter Visit Diagnoses Not on filedocumented in this encounter Care Teams Staff Internist Office Based Only Relationship Specialty Start Date End Date Tom Morales MD Retired From Practice PCP - MSSP ACO Attributed Provider 01/11/23 10/12/23 Olivia Cazares MD Retired From Practice PCP - General Family Medicine 09/17/23 documented as of this encounter
--- OUTSIDE RECORDS SUMMARY | 2025-02-07 15:47 | XMS_ITS | Patient Health Record ---
Author Organization [facility] Address [address] [place] [address] Care Team Providers Care Hyperbaric Tech Name Role Phone Olivia Cazares Primary Care Provider Annie Alcantara Unavailable [phone] Allergies No Known Allergies Reason For Referral [...] Problem Status W/U Status Risk Notes Problem [id number] Peripheral vascular disease, unspecified (I73.9) Active confirmed Problem [id number] Type 2 diabetes mellitus with other specified complication (E11.69) Active confirmed Problem Coronary artery disease (14930702) CAD (coronary artery disease) (I25.10) Active confirmed Problem Hypertension (03369291) HTN (hypertension) (I10) Active confirmed Problem Gout (25075782) Gout (M10.9) Active confirmed Problem Diabetes mellitus type 2 (disorder) (77785306) DM2 (diabetes mellitus, type 2) (E11.9) Active confirmed Vital Signs Heart Rate 75 /min 08/02/2024 Temperature 97.1 degrees Fahrenheit 08/02/2024 Oximetry 98 % 08/02/2024 Height 59 in 08/02/2024 Weight 165 lbs 08/02/2024 BMI 33.32 kg/m2 08/02/2024 Encounters Encounter Location Date Provider Diagnosis [facility] (PODIATRY) [address] [place] [address] [place] [address] 08/02/2024 Annie Lovingen Type 2 diabetes mellitus with other specified complication E11.69 ; Pain in left toe(s) M79.675 and Peripheral vascular disease, unspecified I73.9 [facility] (PODIATRY) [address] [place] [address] [place] [address] 03/29/2024 Annie Gasca Type 2 diabetes mellitus [...] End Date [place] [address] [place] [address] [phone] [id number] Lexi Cm Self - patient is the insured [facility] [address] [place] [address] [id number] PLAN K Lexi Cm Self - patient is the insured Medical (General) History Medical History History ICD Code arthritis diabetes heart disease peripheral vascular disease Surgical History Surgery Date(Month/Year) heart bypass
[2025-02-07 16:27] LABS: Protein Creatinine Ratio Urine 5.66; Total Protein Urine Random 136.2 mg/dL (<=11.9)
[2025-02-07 16:35] LABS: Cast Seen? NONE SEEN #/LPF (NONE SEEN); Crystals Seen? None Seen #/HPF (None Seen)
[2025-02-07 16:49] LABS: Hematocrit 36.6 % (36.0-48.0); Hemoglobin 11.5 g/dL (12.0-16.0); Mean Corpuscular HGB Conc 31.4 g/dL (29.9-35.2); Mean Corpuscular Hemoglobin 31.9 pg (26.7-34.0); Mean Corpuscular Volume 101.4 fL (81.0-99.0); Platelet Count 213 10^3/uL (150-450); Red Blood Count 3.61 10^6/uL (4.20-5.40); White Blood Count 10.6 10^3/uL (4.0-11.0)
[2025-02-07 16:52] LABS: Glucose Urine UA NEGATIVE (NEGATIVE)
[2025-02-07 17:17] LABS: Albumin Level 2.8 g/dL (3.4-5.0); Anion Gap 12.4; Blood Urea Nitrogen 59.0 mg/dL (7.0-18.0); Calcium 9.5 mg/dL (8.5-10.1); Carbon Dioxide 28.7 mmol/L (21.0-32.0); Chloride 98 mmol/L (98-107); Estimated GFR (African America 31 (>=60 mL/min/1.73m^2); Estimated GFR (Non-African Ame 26 (>=60 mL/min/1.73m^2); Glucose 206 mg/dL (74-106); Iron 41.0 ug/dL (50.0-170.0); Percent Iron Saturation 19.4 %; Potassium 4.1 mmol/L (3.5-5.1); Sodium 135 mmol/L (136-145); Total Iron Binding Capacity 211.0 ug/dL (250.0-450.0); Uric Acid 3.8 mg/dL (2.6-6.0)
[2025-02-07 17:43] LABS: Ferritin 187.0 ng/mL (8.0-252.0)
== END 2025-02-07 15:40 | disposition home or self-care (01) ==
PROVIDERS: PCP Family Medicine; Visit Provider Internal Medicine
DX: R80.9 Proteinuria, unspecified (principal); M10.9 Gout, unspecified; N25.81 Secondary hyperparathyroidism of renal origin; N18.9 Chronic kidney disease, unspecified; D63.1 Anemia in chronic kidney disease; I12.9 Hypertensive chronic kidney disease with stage 1 through stage 4 chronic kidney disease, or unspecified chronic kidney disease
CPT/HCPCS: 36415; 80069; 81001; 82306; 82570; 82728; 83540; 83550; 83970; 84156; 84550; 85027

== ENCOUNTER 2025-04-07 13:24 | Emergency (ER) | payer MEDICARE, SELFPAY ==
[2025-04-07] VITALS (60 sets, daily range): BP systolic 138–199; BP diastolic 55–112; PULSE 65–86; TEMP 36.6; O2SAT 90–100; BMI 33.3
--- NOTE | 2025-04-07 13:53 | ECG_ITS ---
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 Measurements Intervals [place] Rate: 79 P: -44 [place]: 162 QRS: -13 QRSD: 108 T: 173 QT: 400 QTc: 434 Interpretive Statements Normal sinus rhythm 3134 Anterior myocardial infarction, age undetermined 3634 Inferior myocardial infarction, age undetermined [address] depression, possible subendocardial injury 4564 Twave abnormality, possible lateral ischemia 9150 abnormal ECG Compared to ECG 09/26/2024 23:06:01 Left ventricular hypertrophy no longer present Myocardial infarct finding still present Electronically Signed On 04-08-2025 7:33:35 EDT by HI PEREZ M.D.
--- NOTE | 2025-04-07 13:56 | ED.GENADUL1 ---
HPI HPI - General Adult General Chief complaint: Shortness of Breath/Dyspnea Stated complaint: LOW OXYGEN - SURGERY 2 WEEKS AGO Time Seen by Provider: 04/07/25 13:41 Source: patient Mode of arrival: Wheelchair History of Present Illness HPI narrative: 79-year-old female presents for shortness of breath. She has had this for 2 weeks since her left hip surgery. She has not had a fever or productive cough. 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 She quit smoking about 25 years ago and has not been having any hemoptysis or productive cough and does not complain of chest or back pain to me. Related Data Home Medications ?Medication ?Instructions ?Recorded ?Confirmed allopurinol 300 mg tablet 300 mg PO DAILY 08/30/23 04/07/25 aspirin 81 mg tablet,delayed 81 mg PO DAILY 08/30/23 04/07/25 release carvedilol 25 mg tablet 25 mg PO BID 08/30/23 04/07/25 cholecalciferol (vitamin D3) 125 125 mcg PO .every other day 08/30/23 04/07/25 mcg (5,000 unit) tablet clopidogrel 75 mg tablet 75 mg PO DAILY 08/30/23 04/07/25 furosemide 40 mg tablet 40 mg PO QAM 08/30/23 04/07/25 rosuvastatin 5 mg tablet 5 mg PO DAILY 08/30/23 04/07/25 gabapentin 300 mg capsule 300 mg PO BID 08/31/23 04/07/25 insulin aspart U-100 100 unit/mL 1 sliding scale dose subcut ACHS 08/31/23 04/07/25 (3 mL) subcutaneous pen (Novolog FlexPen U-100 Insulin aspart) insulin glargine 100 unit/mL (3 50 unit subcut .hs 09/27/24 04/07/25 mL) subcutaneous pen (Basaglar KwikPen U-100 Insulin) Allergies Allergy/AdvReac Type Severity Reaction Status Date / Time No Known Drug Allergies Allergy Verified 04/07/25 13:32 Opioid HPI Opioid Management Most Recent Opioid Data: Last Pain Scale 3 09/27/24, 12:00 Last Pain Intensity 4 09/01/23, 09:23 Last ORT Total Score 3 09/27/24, 02:42 Last ORT Risk Category Low Risk 09/27/24, 02:42 Review of Systems ROS Narrative A ten point review of systems is negative except as noted above. [facility] Medical History (Updated 04/07/25 @ 18:52 by Mao Lizama MD) CHF (congestive heart failure) ?I50.9 - Heart failure, unspecified (ICD-10) Gout ?M10.9 - Gout, unspecified (ICD-10) Peripheral arterial disease ?I73.9 - Peripheral vascular disease, unspecified (ICD-10) CAD (coronary artery disease) ?I25.10 - Atherosclerotic heart disease of [place] coronary artery without angina pectoris (ICD-10) Stage 3b chronic kidney disease (CKD) ?N18.32 - Chronic kidney disease, stage 3b (ICD-10) HTN (hypertension) ?I10 - Essential (primary) hypertension (ICD-10) Diabetes ?E11.9 - Type 2 diabetes mellitus without complications (ICD-10) Surgical History (Updated 04/07/25 @ 18:33 by Bailey Mclean RN) S/P hip replacement ?Z96.649 - Presence of unspecified artificial hip joint (ICD-10) History of aortic bifurcation bypass graft ?Z95.828 - Presence of other vascular implants and grafts (ICD-10) S/P triple vessel bypass ?Z95.1 - Presence of aortocoronary bypass graft (ICD-10) History of 3 sections ?Z98.891 - History of uterine scar from previous surgery (ICD-10) Family History Brother Family history of cancer Mother Family history of hypertension Father Family history of myocardial infarction Other Family history of CHF (congestive heart failure) Family history of diabetes mellitus Social History Within the past year, how often did you have a drink containing alcohol: never Score interpretation: A score less than 3 is consistent with normal alcohol consumption. Smoking status: Former smoker Non-prescribed substance use: denies use Previous occupational history: disabled Highest level of school completed/degree received: high school graduate Are you now , , , , never or living with a partner: In a typical week, how many times do you talk on the telephone with family, friends, or neighbors: 3 or more times per week How often do you get together with friends or relatives: 3 or more times per week How often do you attend christian or advent services: 4 or more times per year Little interest or pleasure in doing things: not at all Feeling down, depressed, or hopeless: not at all Feel stressed/tense/nervous/anxious/difficulty sleeping: not at all Do you think of yourself as: straight/heterosexual Gender Identity: female Exam Narrative Exam Narrative: Nurses note and vital signs reviewed and patient is not hypoxic. General:The patient appears well and in no apparent distress.Patient is resting comfortably on cart. Skin:Warm, dry, no pallor noted.There is no rash noted. Head:Normocephalic, atraumatic Eye: Normal conjunctiva, no drainage Ears, Nose, Mouth, and Throat: oral mucosa is moist. Nares patent. Cardiovascular:Regular Rate and Rhythm Respiratory:Patient is in no distress, no accessory muscle use, lungs show a few rales. Back:non-tender GI:Normal bowel sounds, no tenderness to palpation, no masses appreciated.No rebound, guarding, or rigidity noted. Musculoskeletal: The patient has no evidence of calf tenderness, no pitting edema, symmetrical pulses noted bilaterally Neurological:A&O, normal speech Psychiatric:Cooperative Constitutional Vital Signs, click to edit/add: Last Vital Signs Temp 97.8 F 04/07/25 13:34 Pulse 74 04/07/25 16:40 Resp 19 04/07/25 16:40 BP 174/87 H 04/07/25 16:01 Pulse Ox 92 L 04/07/25 16:40 O2 Del Method Room Air 04/07/25 14:25 Course Vital Signs Vital signs: Vital Signs Temperature 97.8 F 04/07/25 13:34 Pulse Rate 86 04/07/25 13:34 Respiratory Rate 18 04/07/25 13:34 Blood Pressure 199/72 H 04/07/25 13:34 Pulse Oximetry 95 04/07/25 13:34 Oxygen Delivery Method Room Air 04/07/25 13:34 Temperature 97.8 F 04/07/25 13:34 Pulse Rate 74 04/07/25 16:40 Respiratory Rate 19 04/07/25 16:40 Blood Pressure 174/87 H 04/07/25 16:01 Pulse Oximetry 92 L 04/07/25 16:40 Oxygen Delivery Method Room Air 04/07/25 14:25 Medical Decision Making MDM Narrative Medical decision making narrative: Indicates CHF is seen on the x-ray and her BNP is elevated at 6616. She was given IV Lasix. VQ scan is pending. V/Q was performed because of elevated BUN and creatinine precludes doing CTA. The patient is signed out to Dr. Mata at change of shift. Differential Diagnosis Differential Diagnosis: PE, pneumonia, CHF, CA Lab Data Lab results reviewed: Yes I reviewed the patient's lab results Labs: Lab Results 04/07/25 04/07/25 Range/Units 14:00 14:48 WBC 9.2 (4.0-11.0) 10^3/uL RBC 3.10 L (4.20-5.40) 10^6/uL Hgb 10.0 L (12.0-16.0) g/dL Hct 33.8 L (36.0-48.0) % MCV 109.0 H (81.0-99.0) fL MCH 32.3 (26.7-34.0) pg MCHC 29.6 L (29.9-35.2) g/dL RDW 17.3 H (11.0-15.0) % Plt Count 225 (150-450) 10^3/uL MPV 10.9 (9.5-13.5) fL Neut % (Auto) 78.6 H (43.0-75.0) % Lymph % (Auto) 13.4 L (20.5-60.0) % [place] % (Auto) 6.0 (1.7-12.0) % Eos % (Auto) 1.3 (0.9-7.0) % Baso % (Auto) 0.2 (0.2-2.0) % Neut # (Auto) 7.2 H (1.4-6.5) 10^3/uL Lymph # (Auto) 1.2 (1.2-3.8) 10^3/uL [place] # (Auto) 0.6 (0.3-0.8) 10^3/uL Eos # (Auto) 0.1 (0.0-0.7) 10^3/uL Baso # (Auto) 0.0 (0.0-0.1) 10^3/uL Abs Immat Gran (auto) 0.05 H (0.00-0.03) 10^3/uL Imm/Tot Granulo (auto) 0.5 (0.0-0.5) % Sodium 136 (136-145) mmol/L Potassium 4.7 (3.5-5.1) mmol/L Chloride 101 (98-107) mmol/L Carbon Dioxide 30.3 (21.0-32.0) mmol/L Anion Gap 9.4 BUN 34.0 H (7.0-18.0) mg/dL Creatinine 1.86 H (0.55-1.02) mg/dL Est GFR ( Amer) 32 L (>=60 mL/min/1.73m^2) Est GFR (Non-Af Amer) 26 L (>=60 mL/min/1.73m^2) BUN/Creatinine Ratio 18.3 Glucose 211 H (74-106) mg/dL Calcium 8.9 (8.5-10.1) mg/dL Troponin I High Sens 66.0 H* 66.6 H* (4.0-51.3) pg/mL NT-Pro-B Natriuret Pep 6616.0 H* (<=1800.0) pg/mL Imaging Data Chest x-ray: Radiologist's impression: ITS Impressions Pulmonary Perfusion Imaging 04/07/25 14:50 IMPRESSION: Low probability of pulmonary embolism Impression dictated by: Dwayne Pearson M.D. 04/07/2025 6:50 PM Dictation Location: [facility] Electronically authenticated by: [id number] Y Date: 04/07/2025 18:50 Chest X-Ray 04/07/25 16:55 IMPRESSION: Mild CHF findings Impression dictated by: Dwayne Pearson M.D. 04/07/2025 5:38 PM Dictation Location: [facility] Electronically authenticated by: [id number] Y Date: 04/07/2025 17:38 ECG Data Attestation: I personally reviewed and interpreted this ECG as follows: (KG on my interpretation shows rate of 79) Critical Care Time Critical Care Time Critical Care Time: Yes Total Critical Care Time: 35 Attestation: Due to the high probability of sudden and clinically significant deterioration in the patient's condition he/she required the highest level of my preparedness to intervene urgently I provided critical care time including documentation time, medication orders and management, reevaluation, vital sign assessment, ordering and reviewing of lab tests, ordering and reviewing of x-ray studies, and admission orders. Aggregate critical care time is 35 minutes including only time during which I was engaged in work directly related to his/her care and did not include time spent treating other patients simultaneously. Discharge Plan Discharge Patient Disposition: Still a Patient
--- OUTSIDE RECORDS SUMMARY | 2025-04-07 14:08 | XMS_ITS | CCD ---
Author Organization [facility] CliniSyal Care Team Providers Care Box Sorter Name Role Phone BLAKE KUO Unavailable Unavailable SHITAL, LI Unavailable Unavailable BLAKE KUO Unavailable Unavailable SHITAL, LI Unavailable Unavailable PHYSICIAN, DEFAULT Unavailable Unavailable PHYSICIAN, DEFAULT Unavailable Unavailable Li Lee Unavailable Unavailable Unavailable SHITAL, DR LI Conley Primary Care Unavailable LEE, DR LI Conley Admitting Unavailable LEE, DR LI Conley Attending Unavailable LEE, DR LI Conley Consulting Unavailable [place], DR Ren Consulting Unavailable LEE, DR LI [...] Unav ailable LeeLi Primary Care Unavailable McGuinn MIMA, Tom Green Attending Unav ailable McGuinn IITom Referring Unav ailable Lee, Li Miller Primary Care Unavailable FatmatauinTom foss II Attending Unav ailMD Li Soliz Primary Care Provider [phone] MD Ross Colmenares Attending Provider Ross Colmenares Unavailable Maxine Llanes Primary Care Physician [phone] Da Lozano II Unavailable Tom Morales MD Unavailable [phone] Stefan Best MD Primary Care Provider MD Stefan Best Primary Care Provider MD Da Lozano II Attending Provider MD Alyssa Ramírez Emergency Provider DO Norberto Pires Admit Provider DO Norberto Pires Attending Provider MD Gita Azevedo Other Provider MD Yaniv Natarajan Other Provider Shraddha, COMMUNITY SERVICE PATROL OFFICER Maxine L Attending Unavailable Shraddha, COMMUNITY SERVICE PATROL OFFICER Maxine L Attending Unavailable Shraddha, COMMUNITY SERVICE PATROL OFFICER Maxine L Attending Unavailable Shraddha, COMMUNITY SERVICE PATROL OFFICER Maxine L Attending Unavailable Shraddha, COMMUNITY SERVICE PATROL OFFICER Maxine L Attending Unavailable Shraddha, COMMUNITY SERVICE PATROL OFFICER Maxine L Attending Unavailable COOK, Yaniv P Attending Unavailable Shraddha, COMMUNITY SERVICE PATROL OFFICER Maxine L Attending Unavailable Shraddha, COMMUNITY SERVICE PATROL OFFICER Maxine L Admitting Unavailable Shraddha, COMMUNITY SERVICE PATROL OFFICER Maxine L Attending Unavailable Shraddha, COMMUNITY SERVICE PATROL OFFICER Maxine L Admitting Unavailable COOK, Yaniv P Attending Unavailable COOKYaniv Referring Unavailable COOKYaniv Attending Unavailable Shraddha, COMMUNITY SERVICE PATROL OFFICER Maxine L Attending Unavailable Shraddha, COMMUNITY SERVICE PATROL OFFICER Maxine L Attending Unavailable Ross, Baljit Attending Unavailable AMIR, Hasan Admitting Unavailable OJUKWU, Mbanefo Attending Unavailable OJUKWU, Mbanefo Admitting Unavailable STEFAN BEST Primary Care Physician KADE Mbyokastafo Attending Unavailable KADE, Mbanefo Admitting Unavailable MD Stefan Best Primary Care Provider [phone] MD Stefan Best Attending Provider [phone] TOM MORALES Referring Unavailable STEFAN BEST Primary Care Unavailable TOM MORALES Referring Unavailable STEFAN BEST Primary Care Unavailable Stefan Best MD Attending Provider Stefan Best MD Primary Care Provider [phone] Yaniv Natarajan MD Attending Provider [phone] Stefan Best MD Attending Provider [phone] Da Lozano MD Attending Provider Stefan Best MD Primary Care Provider Stefan Best MD Primary Care Provider Stefan Best MD Attending Provider Da Lozano MD Attending Provider Stefan Best MD Primary Care Provider [phone] Stefan Best MD Attending Provider Stefan Best MD Primary Care Provider Ynaiv Natarajan MD Attending Provider Stefan Best MD Attending Provider Stefan Best MD Attending Provider Stefan Best MD Primary Care Provider Da Lozano MD Attending Provider Yaniv NATARAJAN Attending Unavailable Yaniv NATARAJAN Attending Unavailable Yaniv NATARAJAN Attending Unavailable Leroy Ashby MD Attending Provider [phone] Stefan Best MD Primary Care Provider Stefan Best MD Attending Provider ANGELA BRAUN Attending Unavailable TOM MORALES Referring Unavailable STEFAN BEST Primary Care Unavailable Da Lozano MD Other Provider Earnest Ferrari MD Other Provider Lily Yanes RN Other Provider Unavailable Jacinda Taylor RN Other Provider Unavailable Sherrie Yoder RN Other Provider Unavailable Namrata Marshall RN Other Provider Unavailable Selene Taylor RN Other Provider Unavailable Kalyani Ferrari RN Other Provider Unavailable Trace Alvarez MD Other Provider Clayton De La Cruz DO Other Provider [phone] Stewart Osorio MD Other Provider Norberto Pires DO Other Provider Mateo Schaeffer MD Other Provider Yamile MARLOW, Maxine Other Provider David Maher DO Other Provider Mason Rivera MD Other Provider Unavailable Vandana Urbina APRN Other Provider [phone] Elzbieta MARLOW, Serina Other Provider [phone] Nathan Gibson MD Other Provider Unavailable Los Ventura MD Other Provider David Patel DO Other Provider Jj Muniz MD Other Provider Aldair Leija MD Other Provider Coleman GRACE-C, Salud Ybarra Other Provider Crissy Smith APRN Other Provider Unavailable Dany Schroeder MD Other Provider Sergei MARLOW, Hernan Other Provider Khloe MARLOW, Markel Other Provider Unavailable Chevy Espino DO Other Provider Vy Ortiz APRN Other Provider Juice Mackenzie DO Other Provider Rhona MARLOW, Nikolai Artis Other Provider Goldie Braun APRN Other Provider [phone] Jelena Inman APRN Other Provider Katiana Barrera MD Other Provider Unavailable Jagjit Atkinson MD Other Provider Roberto Jaime DO Other Provider Herman Bella MD Other Provider Nithya Alvarado MD Other Provider Francisca Escudero APRN Other Provider Unavailable Nishi Welsh MD Other Provider Earnest Noel MD Other Provider Panchito MARLOW, Mason Ballesteros Other Provider [phone] Hill Marmolejo MD Other Provider Denise BRAND, Maryana Dinero Other Provider Jennifer BRAND, Susanne Other Provider Akosua ROB, Lexi Other Provider Unavailable Farhat Almeida MD Attending Provider Elle MARLOW, Farhat Soliman Admit Provider Elle MARLOW, Farhat Soliman Other Provider Mindy De Jesus APRN Attending Provider Stefan Best Admitting Unavailable Stefan Best Attending Unavailable Estephania, Stefan Conley Admitting Unavailable Estephania, Stefan Conley Attending Unavailable Stefan Best Primary Care Unavailable Da Lozano II Attending Unavailabl e Blake GUILLERMO, Da Artis Admitting Unavailabl e Best, Stefan E Primary Care Unavailable Stefan Best E Primary Care Unavailable Yaniv Natarajan Attending Unavailable Yaniv Natarajan P Admitting Unavailable Valeriy eBstia E Primary Care Unavailable Yaniv Natarajan P Admitting Unavailable Yaniv Natarajan P Attending Unavailable Best, Stefan E Primary Care Unavailable Cook, Yaniv P Admitting Unavailable Yaniv Natarajan Attending Unavailable Stafford MIMA, Da Artis Admitting UnavailEarnest Patel Consulting Unavailable Da Lozano II Attending Unavailabl e Estephania, Stefan E Primary Care Unavailable Lily Yanes Consulting Unavailable Gearrehan Jacinda Consulting Unavailable Denslow, Sherrie Consulting Unavailable Joanna, Namrata Consulting Unavailable Selene Taylor Consulting Unavailable Kalyani Ferrari Consulting Unavailable MassTrace blanco Consulting Unavailable Clayton De La Cruz Consulting Unavailable Kasi Osoriotaq Consulting Unavailable Norbetro Pires Consulting Unavailabl e Mateo Schaeffer Consulting Unavailable Sem[place]oney Maxine Consulting Unavailable David Maher Consulting Unavailable MiguelMason andersen Consulting Unavailable Vandana Urbina Consulting Unavailabl e Serina Ruff Consulting Unavailable Nathan Gibson Consulting Unavailable Lorenzo, Safwan Consulting Unavailable David Patel Consulting Unavailable Flavio, Firas Consulting Unavailable Aldair Leija Consulting Unavailable Salud Cee Consulting Unavailable Crissy Smith Consulting Unavailable DoameDany sousa E Consulting Unavailab le Sergei, Hernan Consulting Unavailable Almoselli, Khaled Consulting Unavailable Kenzie, Chevy R Consulting Unavailable Vy Ortiz Consulting Unavailable Juice Mackenzie Consulting Unavailable DaromaNikolai andrew Consulting Unavailable Goldie Braun Consulting Unavailable Jelena Inman Consulting Unavailable Alamartin Alaa Consulting Unavailable Jagjit Atkinson Consulting Unavailable Roberto Jaime Consulting Unavailable Herman Bella Consulting Unavailable Nithya Alvarado Consulting Unava luzable Francisca Escudero Consulting Unavailable Nishi Welsh Consulting Unavailable Earnest Noel Consulting Unavailable Mason Flanagan Consulting Unavailable Hill Marmolejo Consulting Unavailable Maryana Walker Consulting Unavailable Bolamaya-Sherry Nicooneil Consulting Unavaila Lexi Sloan Consulting Unavailable Farhat Almeida Admitting Unavaila Stefan Momin Primary Care Unavailable Lily Yanes Consulting Unavailable Farhat Almeida Attending Unavaila Jacinda Cardenas Consulting Unavailable Sherrie Yoder Consulting Unavailable Namrata Marshall Consulting Unavailable Selene Taylor Consulting Unavailable Kalyani Ferrari Consulting Unavailable Trace Alvarez Consulting Unavailable Clayton De La Cruz Consulting Unavailable Stewart Osorio Consulting Unavailable Norberto Pires Consulting UnavailMateo Chang Consulting Unavailable Maxine Ovalle Consulting Unavailable David Maher Consulting Unavailable Mason Rivera Consulting Unavailable Vandana Urbina Consulting UnavailSerina Griffith Consulting Unavailable Paige Nathan Consulting Unavailable Lorenzo, Safwan Consulting Unavailable David Patel Consulting Unavailable Flavio, Firas Consulting Unavailable Aldair Leija Consulting Unavailable Salud Cee Consulting Unavailable Crissy Smith Consulting Unavailable Dany Schroeder E Consulting Unavailab le Sergei, Hernan Consulting Unavailable Almoselli, Khaled Consulting Unavailable Kenzie, Chevy R Consulting Unavailable Obika, Vy Consulting Unavailable Juice Mackenzie Consulting Unavailable Daromar, Nikolai Artis Consulting Unavailable Goldie Braun Consulting Unavailable Jelena Inman Consulting Unavailable AlaKatiana salazar Consulting Unavailable Jagjit Atkinson Consulting Unavailable Roberto Jaime Consulting Unavailable Herman Bella Consulting Unavailable Nithya Alvarado Consulting Unava ilable Francisca Escudero Consulting Unavailable Nishi Welsh Consulting Unavailable Earnest Noel Consulting Unavailable Mason Flanagan S Consulting Unavailable Marmolejo, Hill Consulting Unavailable Maryana Walker Consulting Unavailable Bolzan-Sherry, Nicoletto Consulting Unavaila Lexi Sloan Consulting Unavailable Blake GUILLERMO, Da Artis Attending Unavailabl e Stafford II, Da Artis Admitting Unavailabl e Best, Stefan E Primary Care Unavailable Best, Stefan E Primary Care Unavailable Isiah Mata Admitting Unavailable Isiah Mata Attending Unavailable Blake GUILLERMO, Da Artis Attending Unavailabl e Blake II, aD Artis Admitting Unavailabl e Best, Stefan E Primary Care Unavailable BestStefan E Admitting Unavailable BestStefan Attending Unavailable Best, Stefan E Primary Care Unavailable Best, Stefan E Primary Care Unavailable Best, Stefan E Admitting Unavailable BestStefan E Attending Unavailable Blake II, Da Artis Admitting Unavailabl e Stafford II, Da Artis Attending Unavailabl e Best, Stefan E Primary Care Unavailable Blake GUILLERMO, Da Artis Attending Unavailabl e Stafford II, Da Artis Admitting Unavailabl e Best, Stefan E Primary Care Unavailable Blake GUILLERMO, Da Artis Attending Unavailabl e Stafford II, Da Artis Admitting Unavailabl e Best, Stefan E Primary Care Unavailable David Maher DO Other Provider Unavailab Gardenia Lepe CMA Attending Provider Unavailshonda ble Allergies Allergy Classification Reported Allergen(s) Allergy Type Date of Onset Reaction(s) Facility (15 sources) Angiotensin Converting Enzyme (Williams) Inhibitors; Translations: [WILLIAMS Inhibitors] Allergy to drug (finding) 3 Hyperkalemia, Other [facility] [place] Rep[facility] (20 sources) atorvastatin; Translations: [atorvastatin] Drug Allergy 3 Myalgia [facility] (13 sources) Hmg-Coa Reductase Inhibitors (Statins); Translations: [Statins] Allergy to drug (finding) Myalgia [place] [address] DO Work Phone: (5 sources) rosuvastatin; Translations: [rosuvastatin] Drug Allergy My[place] [address] DO Work Phone: (20 sources) Spironolactone; Translations: [spironolactone] Drug Allergy 3 Other [place] [address] DO Work Phone: (1 source) Iodine (And Iodine Containting Drugs) Drug allergy (disorder) [facility] Repository (1 source) Pravastatin Drug Allergy [facility] Rep[facility] (2 sources) Simvastatin Drug Allergy [facility] Rep[facility] (1 source) Sulfonamides (Antibiotic) Drug allergy (disorder) [facility] Rep[facility] (6 sources) Adhesive Tape Drug allergy [employer] Other (11 sources) Pravastatin; Translations: [pravastatin] Drug Allergy Unknown [facility] (12 sources) Angiotensin-conv erting enzyme inhibitor agent Drug Allergy 3 Other [facility] (14 sources) HMG-CoA reductase inhibitor; Translations: [GTOOMKT-EFP-WHK REDUCTASE INHIBITORS] Drug Allergy 3 Myalgia [facility] Work Phone: (20 sources) Adhesive Tape; Translations: [adhesive tape] Allergy to substance 4 rash [facility] (20 sources) blue dye; Translations: [blue dye] Allergy to substance 4 Nausea [facility] Comment on above: dye used with kumar velasquez patient to vomit (20 sources) semaglutide; Translations: [semaglutide] Allergy to substance 4 nausea, vomiting [facility] Medications Current Medications Medication Drug Class(es) Dates Sig (Normalized) Sig (Original) acetaminophen 500 mg oral tablet (20 sources) Start: 03-09-2025 End: 04-04-2025 take 2 tablets by mouth every eight hours Acetaminophen 500 mg Tablet Active 1000 MG PO Q8H 180 April 04, 2025 12:00am Complies with drug therapy Start: 03-03-2025 End: 03-21-2025 take 2 tablets by mouth every six hours as needed for pain Acetaminophen (Acetaminophen Extra Strength) 500 mg tablet Discontinued 1000 MG PO Every 6 hours as needed for pain March 03, 2025 12:00am March 21, 2025 7:32am Start: 01-12-2024 End: 04-04-2025 take 2 tablets by mouth at bedtime Acetaminophen 650 mg tablet extended release Discontinued 1300 MG PO Bedtime January 12, 2024 12:00am April 04, 2025 10:32am On Hold: Resume on 04/21/25. Start: 01-12-2024 take 1300 mg by mout [...] as needed for Pain July 16, 2017 1:00am September 11, 2017 8:44am take 1 tablet by dayo th every four to six hours as needed Acetaminophen 500 MG Oral Tablet TAKE 1 TABLET EVERY 4 TO 6 HOURS NEEDED. Quantity: 0 Refills: 0 Ordered: 02-Nov-2021 DO Active allopurinol 300 mg oral tablet (20 sources) Xanthine Oxidase Inhibitor Start: 03-01-2025 take 1 tablet by mouth once daily Allopurinol 300 mg tablet Active 0 .ROUTE .COMPLEX March 01, 2025 3:24pm TAKE ONE TABLET BY MOUTH ONCE DAILY Complies with drug therapy Start: 05-14-2017 End: 03-01-2025 take 1 tablet by mouth once daily Allopurinol (Zyloprim) 300 mg Tablet Discontinued 300 MG PO Daily May 14, 2017 12:00am March 01, 2025 3:24pm ascorbic acid 1000 mg oral tablet (20 sources) Vitamin C Start: 01-31-2025 take 1 tablet by mouth once daily Ascorbic Acid (Vitamin C) 1,000 mg tablet Active 1000 MG PO Daily January 31, 2025 12:00am Complies with drug therapy Start: 03-01-2024 End: 10-22-2024 take 1 tablet by mouth once daily Ascorbic Acid (Vitamin C) 500 mg tablet Discontinued 0 .ROUTE .COMPLEX March 01, 2024 12:45pm October 22, 2024 7:03am TAKE ONE TABLET BY MOUTH ONCE DAILY Start: 12-05-2023 End: 03-01-2024 take 1 tablet by mouth once daily Ascorbic Acid (Vitamin C) (Vitamin C) 500 mg tablet Discontinued 500 MG PO daily December 05, 2023 12:00am March 01, 2024 12:45pm Start: 09-11-2017 End: 09-09-2023 take 1 capsule [...] MG PO Daily May 14, 2017 12:00am Complies with drug therapy take 1 tablet by dayo th every twenty-four hours Aspirin 81 MG 1 tablet Orally Once a day Active Aspirin 81 MG Or al Tablet Delayed Release Quantity: 0 Refills: 0 Ordered: 19-Dec-2016 DO Active carvedilol 25 mg oral tablet (20 sources) alpha-Adrenergic Miquel, beta-Adrenergic Miquel Start: 07-22-2018 End: 07-01-2025 take 1 tablet by mouth twice daily Carvedilol 25 mg tablet Active 25 MG PO Twice daily July 22, 2018 1:00am Complies with drug therapy Start: 06-23-2017 End: 07-22-2018 take 2 tablets by mouth twice daily Carvedilol (Coreg) 12.5 mg Tablet Discontinued 25 MG PO Twice daily June 23, 2017 1:00am July 22, 2018 1:13pm cephalexin 500 mg oral capsule (1 source) Cephalosporin Antibacterial Start: 02-29-2024 End: 03-04-2024 take 1 capsule by mouth three times daily Keflex 500 mg Cap 500 mg = 1 cap(s), Oral, TID, X 4 day(s), # 12 cap(s), Refills(s) 0, Pharmacy: [id number], 150, cm, 02/26/24 17:34:00 EDT, Height/Length Dosing, 76.4, kg, 02/26/24 17:34:00 EDT, Weight Dosing Start Date: 02/29/24 Stop Date: 03/04/24 Status: Ordered cholecalciferol 0.125 mg oral capsule (20 sources) Vitamin D Start: 02-08-2025 take 1 capsule by mouth once daily Cholecalciferol (Vitamin D3) 125 mcg (5,000 unit) capsule Active 125 MCG PO Daily February 08, 2025 3:40pm Complies with drug therapy Start: 05-20-2024 End: 02-08-2025 take 1 capsule by mouth every other day Cholecalciferol (Vitamin D3) 125 mcg (5,000 unit) capsule Discontinued 125 MCG PO .every other day November 10, 2024 11:53am February 08, 2025 3:42pm Start: 01-12-2024 End: 05-20-2024 take 1 capsule by mouth once daily Cholecalciferol (Vitamin D3) 125 mcg (5,000 unit) capsule Discontinued 125 MCG PO Daily January 12, 2024 12:00am May 20, 2024 11:18am Start: 2023 take 1 tablet by dayo every other day at mealtime cholecalciferol (Vitamin D-3) 5,000 Units tablet Take 1 tablet (5,000 Units) by mouth every other day. with food 2023 Active Start: 2023 take 1 tablet by dayo once daily at mealtime cholecalciferol (Vitamin D-3) 5,000 Units tablet Take 1 tablet (5,000 Units) by mouth once daily. with food 0 2023 Active Start: 02-10-2023 take 1 capsule by mo [facility] once daily cholecalciferol 1000 intl units oral capsule 25 mcg = 1 cap(s), Oral, Daily, Oral, # 90 cap(s), Refills(s) 1, Pharmacy: [facility] 1155, 140.6, cm, 02/10/23 11:29:00 EDT, [...] MG PO Daily May 14, 2017 12:00am Complies with drug therapy dimenhyDRINATE (6 sources) Dramamine Active ferrous sulfate 325 mg oral tablet (20 sources) Start: 01-26-2025 End: 02-08-2025 take 1 tablet by mouth three times daily Ferrous Sulfate (Iron (Ferrous Sulfate)) 325 mg (65 mg iron) tablet Active 325 MG PO Three times daily February 08, 2025 3:41pm Complies with drug therapy Start: 06-24-2024 End: 10-22-2024 take 1 tablet by mouth every other day Ferrous Sulfate (Ferosul) 325 mg (65 mg iron) tablet Discontinued 325 MG PO .Every other day June 24, 2024 1:00am October 22, 2024 7:04am Start: 02-27-2024 take 1 tablet by dayo th every other day ferrous sulfate 325 (65 Fe) MG EC tablet Take 1 tablet by mouth every other day. 02/27/2024 Active Start: 01-25-2024 End: 2024 take 1 tablet by mouth every other day Ferrous Sulfate (Iron (Ferrous Sulfate)) 325 mg (65 mg iron) tablet Discontinued 325 MG PO every other day March 03, 2024 2:46pm 2024 8:26am Start: 12-05-2023 End: 01-25-2024 take 1 tablet by mouth three times daily Ferrous Sulfate (Iron (Ferrous Sulfate)) 325 mg (65 mg iron) tablet Discontinued 325 MG PO tid December 05, 2023 12:00am January 25, 2024 10:20am furosemide 40 mg oral tablet (20 sources) Loop Diuretic Start: 10-11-2021 End: 09-16-2024 take 1 tablet by mouth once daily Furosemide 40 mg tablet Active 40 MG PO Daily January 12, 2024 12:00am Complies with drug therapy Start: 05-14-2017 End: 01-12-2024 take 1 tablet by mouth once daily as needed for edema Furosemide (Lasix) 20 mg Tablet Discontinued 20 MG PO Daily as needed for Edema May 14, 2017 12:00am January 12, 2024 4:18pm take 1 tablet by dayo twice daily Furosemide 40 MG Oral Tablet Take 1 tablet twice daily Quantity: 0 Refills: 0 Ordered: 19-Dec-2016 DO Active insulin aspart 100 units/mL injectable solution (1 source) Start: 02-05-2023 insulin aspart 100 units/mL injectable solution Subcutaneous, Refills(s) 0 Start Date: 02/05/23 Status: Ordered Insulin Aspart U-100 (Novolo g Flexpen U-100 Insulin) 100 unit/mL (3 mL) insulin pen (13 sources) Start: 10-14-2024 Insulin Aspart U-100 (Novolog Flexpen U-100 Insulin) 100 unit/mL (3 mL) insulin pen Active 1 sliding scale dose SUBCUT As Directed as needed for Type 2 diabetes October 14, 2024 10:46am Please contact the information source for Protocol details. Start: 10-14-2024 End: 10-14-2024 Insulin Aspart U-100 (Novolo g Flexpen U-100 Insulin) 100 unit/mL (3 mL) insulin pen Discontinued 0 UNIT SUBCUT As Directed as needed for Type 2 diabetes October 14, 2024 9:51am October 14, 2024 10:47am Please contact the information source for Protocol details. Start: 08-03-2024 End: 10-14-2024 Insulin Aspart U-100 (Novolo g Flexpen U-100 Insulin) 100 unit/mL (3 mL) insulin pen Discontinued 0 UNIT SUBCUT As Directed as needed August 03, 2024 12:07pm October 14, 2024 9:52am Please contact the information source for Protocol details. Start: 08-03-2024 Insulin Aspart U-100 (Novolog Flexpen U-100 Insulin) 100 unit/mL (3 mL) insulin pen Active 0 UNIT SUBCUT As Directed as needed August 03, 2024 12:07pm Please contact the information source for Protocol details. Start: 08-03-2024 Insulin Aspart U-100 (Novolog Flexpen U-100 Insulin) 100 unit/mL (3 mL) insulin pen Active 0 UNIT SUBCUT As Directed as needed August 03, 2024 11:07am Please contact the information source for Protocol details. 3 ml insulin degludec 100 unt/ml pen injector (2 sources) Insulin Analog Start: 08-21-2023 Tresiba FlexTo uch 100 units/mL subcutaneous solution 20 unit(s), SubCutaneous, As Directed, using sliding scale as needed, # 15 mL, Refills(s) 1, Pharmacy: [facility], 143, cm, 08/20/23 16:15:00 EST, Height/Length Dosing, 75.7, kg, 08/20/23 16:15:00 EST, Weight Dosing Start Date: 08/21/23 Status: Ordered 3 ml insulin glargine 100 unt/ml pen injector (20 sources) Insulin Analog Start: 12-03-2024 End: 03-03-2025 Insulin Glargine (Lantus Solostar U-100 Insulin) 100 unit/mL (3 mL) insulin pen Active 55 UNIT SUBCUT Daily at bedtime March 03, 2025 12:00am Complies with drug therapy Start: 10-22-2024 End: 12-03-2024 Insulin Glargine (Basaglar Kwikpen U-100 Insulin) 100 unit/mL (3 mL) insulin pen Discontinued 50 UNIT SUBCUT Every evening October 22, 2024 12:00am December 03, 2024 12:24pm Start: 07-01-2024 End: 10-22-2024 Insulin Glargine (Basaglar Kwikpen U-100 Insulin) 100 unit/mL (3 mL) insulin pen Discontinued 60 UNIT SUBCUT Every evening 54 90 July 02, 2024 3:24pm October 22, 2024 7:06am Start: 10-08-2023 Basaglar KwikP en 100 units/mL subcutaneous solution 50 unit(s), SubCutaneous, Daily, # 45 mL, Refills(s) 2, Pharmacy: [facility], 143, cm, 08/20/23 16:15:00 EST, Height/Length Dosing, 75.7, kg, 08/20/23 16:15:00 EST, Weight Dosing Start Date: 10/08/23 Status: Ordered Start: 07-03-2023 End: 07-01-2024 Insulin Glargine (Basaglar Kwikpen U-100 Insulin) 100 unit/mL (3 mL) insulin pen Discontinued 50 UNIT SUBCUT Every evening January 12, 2024 4:15pm July 01, 2024 12:29pm Start: 02-10-2023 Basaglar KwikP en 100 units/mL subcutaneous solution 50 unit(s), SubCutaneous, Daily, # 15 mL, Refills(s) 2, Pharmacy: [facility], 140.6, cm, 02/10/23 11:29:00 EDT, Height/Length Dosing, 79.2, kg, 02/10/23 11:29:00 EDT, Weight Dosing Start Date: 02/10/23 Status: Ordered Start: 02-07-2023 Basaglar KwikP en 100 units/mL subcutaneous solution See Instructions, 50 units daily, # 15 mL, Refills(s) 0, Pharmacy: [facility] Start Date: 02/07/23 Status: Ordered Start: 01-31-2021 [...] 9:05am Basaglar KwikPen 100 UNIT/ML Subcutaneous Active potassium chloride 10 meq extended release oral tablet (20 sources) Start: 03-03-2025 take 1 tablet by mouth once daily Potassium Chloride 10 mEq tablet extended release Active 10 MEQ PO Daily March 03, 2025 12:00am Complies with drug therapy Start: 09-12-2023 End: 08-03-2024 take 1 capsule by mouth once daily Potassium Chloride 10 mEq capsule, extended release Discontinued 10 MEQ PO Daily September 12, 2023 1:00am August 03, 2024 12:31pm Start: 09-03-2023 take 1 tablet by dayo th once daily potassium chloride 10 mEq ER Tab 10 mEq = 1 tab(s), Oral, Daily, Oral, # 30 tab(s), Refills(s) 5, Pharmacy: [facility] [id number], 143, cm, 08/20/23 16:15:00 EST, [...] Release Discontinued 10 MEQ PO Daily May 14, 2017 12:00am June 25, 2017 11:05am take 1 tablet by dayo th once daily Potassium Chloride ER 20 MEQ Oral Tablet Extended Release Take 1 tablet daily Quantity: 0 Refills: 0 Ordered: 19-Dec-2016 DO Active rosuvastatin calcium 5 mg oral tablet (20 sources) HMG-CoA Reductase Inhibitor Start: 03-03-2025 take 1 tablet by mouth once daily at bedtime Rosuvastatin 5 mg tablet Active 5 MG PO Daily at bedtime March 03, 2025 12:00am Complies with drug therapy Start: 03-01-2025 End: 03-03-2025 take 1 tablet by mouth once daily Rosuvastatin 5 mg tablet Discontinued 0 .ROUTE .COMPLEX 30 March 01, 2025 3:24pm March 03, 2025 2:55pm TAKE ONE TABLET BY MOUTH ONCE DAILY Start: 06-23-2017 End: 03-01-2025 take 1 tablet by mouth once daily at bedtime Rosuvastatin (Crestor) 5 mg Tablet Discontinued 5 MG PO Daily at bedtime June 23, 2017 1:00am March 01, 2025 3:24pm take 1 tablet by dayo th every [...] 0 Refills: 0 Ordered: 19-Dec-2016 DO Active albuterol 0.833 mg/ml / ipratropium bromide 0.167 mg/ml inhalation solution (2 sources) Anticholinergic, beta2-Adrenergic Agonist Start: 04-04-2025 End: 04-06-2025 take 1 mL by inhalation four times daily Ipratropium-Albute rol 0.5 mg-3 mg(2.5 mg base)/3 mL Solution For Nebulization Discontinued 3 ML INHALATION Four times daily - Respiratory 90 April 04, 2025 12:00am April 06, 2025 3:31pm atorvastatin 80 mg oral tablet (20 sources) HMG-CoA Reductase Inhibitor Start: 05-14-2017 End: 06-23-2017 take 1 tablet by mouth once daily Atorvastatin 80 mg Tablet Discontinued 80 MG PO Daily May 14, 2017 12:00am June 23, 2017 4:33pm cefadroxil 500 mg oral capsule (5 sources) Cephalosporin Antibacterial Start: 03-09-2025 End: 04-04-2025 take 1 capsule by mouth every twelve hours Cefadroxil 500 mg capsule Discontinued 500 MG PO Q12H 14 March 09, 2025 12:00am April 04, 2025 10:32am DO NOT RECONCILE UNTIL DOS:03/21/2025 MED TO BED ciprofloxacin 250 mg oral tablet (20 sources) Quinolone Antimicrobial Start: 11-15-2024 End: 01-11-2025 take 1 tablet by mouth once daily Ciprofloxacin Hcl 250 mg tablet Discontinued 250 MG PO Daily November 15, 2024 12:00am January 11, 2025 3:51pm Start: 2024 End: 06-24-2024 take 1 tablet by mouth every two hours Ciprofloxacin Hcl (Cipro) 500 mg tablet Discontinued 500 MG PO Q12H 2024 1:00am June 24, 2024 11:58am administer dose at least 2 hrs before/6 hrs after dairy products, calcium, zinc, and/or iron-containing products Start: 05-25-2024 End: 2024 take 1 tablet by mouth once daily Ciprofloxacin Hcl 250 mg tablet Discontinued 250 MG PO Daily May 25, 2024 1:24pm 2024 8:25am Start: 04-07-2024 End: 05-20-2024 take 1 tablet by mouth once daily Ciprofloxacin Hcl 250 mg tablet Discontinued 250 MG PO Daily April 07, 2024 12:00am May 20, 2024 10:57am docusate sodium 100 mg oral capsule (20 sources) Start: 01-12-2024 End: 04-04-2025 take 1 capsule by mouth at bedtime Docusate Sodium (Colace) 100 mg capsule Discontinued 100 MG PO Bedtime January 12, 2024 4:15pm April 04, 2025 10:32am Start: 08-20-2023 Colace Oral, D arminday, Refills(s) 0 Start Date: 08/20/23 Status: Ordered Start: 06-23-2017 End: 01-12-2024 take 1 capsule by mouth twice daily as needed for constipation Docusate Sodium (Colace) 100 mg Capsule Discontinued 100 MG PO Twice daily as needed for Constipation June 23, 2017 1:00am January 12, 2024 4:21pm take 1 capsule by [facility] every twenty-four hours Colace 100 MG 1 capsule as needed Orally Once a day Active take 1 tablet by mouth once sayda y Docusate Sodium 100 MG Oral Tablet TAKE 1 TABLET DAILY DIRECTED. Quantity: 0 Refills: 0 Ordered: 19-Dec-2016 DO Active docusate sodium 50 mg / sennosides, fdc 8.6 mg oral tablet (5 sources) Start: 03-09-2025 End: 04-04-2025 take 2 tablets by mouth once daily Sennosides-Docusate Sodium (Senokot-S) 8.6-50 mg tablet Discontinued 2 TAB PO daily 60 March 09, 2025 12:00am April 04, 2025 10:32am DO NOT RECONCILE UNTIL DOS:03/21/2025 MED TO BED fluconazole 150 mg oral tablet (16 sources) Azole Antifungal Start: 02-18-2025 End: 03-03-2025 take 1 tablet by mouth every week Fluconazole 150 mg tablet Discontinued 150 MG PO Q7D 2 February 18, 2025 8:52am March 03, 2025 2:55pm Start: 01-13-2025 End: 02-08-2025 take 1 tablet by mouth every week Fluconazole 150 mg tablet Discontinued 150 MG PO Q7D January 13, 2025 12:00am February 08, 2025 3:42pm gabapentin 300 mg oral capsule (20 sources) Anti-epileptic Agent Start: 04-29-2024 End: 02-28-2025 take 1 capsule by mouth twice daily Gabapentin 300 mg capsule Discontinued 0 .ROUTE .COMPLEX 60 December 24, 2024 9:28am February 28, 2025 8:20am TAKE ONE CAPSULE BY MOUTH TWICE A DAY Start: 02-02-2024 End: 03-22-2024 take 1 capsule by mouth twice daily Gabapentin 300 mg capsule Discontinued 0 .ROUTE .COMPLEX 60 February 02, 2024 9:04am March 22, 2024 2:28pm TAKE ONE CAPSULE BY MOUTH TWICE A DAY Start: 07-03-2023 End: 04-29-2024 take 1 capsule by mouth twice daily Gabapentin 300 mg capsule Discontinued 300 MG PO Twice daily March 22, 2024 2:26pm April 29, 2024 8:27am Start: 02-05-2023 gabapentin 300 mg Cap Oral, Refills(s) 0 Start Date: 02/05/23 Status: Ordered Start: 06-15-2021 take 1 capsule by mo [facility] twice daily Gabapentin 300 MG Oral Capsule TAKE ONE CAPSULE BY MOUTH TWICE A DAY Quantity: 60 Refills: 0 Ordered: 12-Dec-2021 DO Start : 15-Jun-2021 Active Start: 09-11-2017 End: 02-02-2024 take 3 capsules by mouth twice daily Gabapentin 100 mg Capsule Discontinued 300 MG PO Twice daily September 11, 2017 1:00am February 02, 2024 9:04am Start: 09-11-2017 End: 02-02-2024 take 300 mg by mouth twice daily Gabapentin Discontinu ed 300 MG PO Twice daily September 11, 2017 1:00am February 02, 2024 9:04am Start: 06-25-2017 End: 09-11-2017 take 1 capsule by mouth twice daily Gabapentin 300 mg capsule Discontinued 300 MG PO Twice daily 60 30 June 25, 2017 1:00am July 19, 2018 1:00am September 11, 2017 8:48am Start: 05-14-2017 End: 06-25-2017 take 2 capsules by mouth twice daily Gabapentin 100 mg Capsule Discontinued 200 MG PO Twice daily May 14, 2017 12:00am June 25, 2017 11:51am Start: 05-14-2017 End: 06-25-2017 take 3 capsules by mouth once daily Gabapentin 100 mg Capsule Discontinued 300 MG PO Daily May 14, 2017 12:00am June 25, 2017 11:51am Start: 05-14-2017 End: 06-25-2017 take 200 mg by mouth twice daily Gabapentin Discontinu ed 200 MG PO Twice daily May 14, 2017 12:00am June 25, 2017 11:51am Start: 05-14-2017 End: 06-25-2017 take 300 mg by mouth once daily Gabapentin Discontinue d 300 MG PO Daily May 14, 2017 12:00am June 25, 2017 11:51am take 1 capsule by mo [facility] every twenty-four hours Gabapentin 300 MG 1 capsule before bedtime Orally Once a day Active Gabapentin 100 M G TABS TAKE 1 TABLET 3 TIMES DAILY. Quantity: 0 Refills: 0 Ordered: 19-Dec-2016 DO Active 12 hr guaiFENesin 600 mg extended release oral tablet (2 sources) Start: 04-04-2025 End: 04-06-2025 take 1 tablet by mouth twice daily Guaifenesin 600 mg Tablet Extended Release 12hr Discontinued 600 MG PO Twice daily 40 April 04, 2025 12:00am April 06, 2025 3:31pm Insulin Aspart U-100 (Novolog Flexpen U-100 Insulin) 100 unit/mL insulin pen (17 sources) Start: 07-16-2017 End: 08-03-2024 Insulin Aspart U-100 (Novolog Flexpen U-100 Insulin) 100 unit/mL insulin pen Discontinued 0 UNIT SUBCUT As Directed July 16, 2017 9:40am August 03, 2024 12:08pm Please contact the information source for Protocol details. Start: 07-16-2017 End: 08-03-2024 Insulin Aspart U-100 (Novolo g Flexpen U-100 [...] SUBCUT As Directed July 16, 2017 9:40am 3 ml insulin aspart, human 100 unt/ml pen injector (20 sources) Insulin Analog Start: 10-14-2024 End: 04-04-2025 Insulin Aspart U-100 (Novolo g Flexpen U-100 Insulin) 100 unit/mL (3 mL) insulin pen Discontinued 1 sliding scale dose SUBCUT As Directed as needed for Type 2 diabetes Protocol: *NOT APPROPRIATE TO USE SCALE IF LESS THAN 3 HOURS SINCE PREVIOUS MEAL AND SCALE DOSE* Condition: Dose/Route: Instructions: Condition: Fingerstick Blood Glucose Dose/Route: Insulin Units [...] Condition: Greater than or = 400 mg/dl Instructions: Call Provider Condition: Custom Scale 1:___ Instructions: GIVE 1 UNIT OF ASPART FOR EVERY ___MG GLUCOSE Instructions: STARTING AT 150MG AT BG CHECKS October 14, 2024 10:46am April 04, 2025 10:32am Please contact the information source for Protocol details. Start: 09-03-2023 insulin aspart 100 units/mL injectable solution See Instructions, 20 unit(s) subcutaneous as needed. follow sliding scale, # 15 mL, Refills(s) 3, Pharmacy: [facility] [id number], 143, cm, 08/20/23 16:15:00 EST, Height/Length Dosing, 75.7, kg, 08/20/23 16:15:00 EST, Weight Dosing Start Date: 09/03/23 Status: Ordered Start: 02-11-2023 NovoLOG Flexpe n U-100 Insulin 100 unit/mL (3 mL) pen INJECT 20 UNITS VIA SUBCUTANEOUS ROUTE NEEDED PER SLIDING SCALE 02/11/2023 Active Start: 05-14-2017 End: 10-14-2024 Insulin Aspart U-100 (Novolo g Flexpen U-100 Insulin) 100 unit/mL (3 mL) insulin pen Discontinued 0 UNIT SUBCUT As Directed as needed Protocol: *NOT APPROPRIATE TO USE SCALE IF LESS THAN 3 HOURS SINCE PREVIOUS MEAL AND SCALE DOSE* Condition: Dose/Route: Instructions: Condition: Fingerstick Blood Glucose Dose/Route: Insulin Units [...] Condition: Greater than or = 400 mg/dl Instructions: Call Provider Condition: Custom Scale 1:___ Instructions: GIVE 1 UNIT OF ASPART FOR EVERY ___MG GLUCOSE Instructions: STARTING AT 150MG AT BG CHECKS August 03, 2024 12:07pm October 14, 2024 9:52am Please contact the information source for Protocol details. Start: 05-14-2017 End: 07-16-2017 Insulin Aspart U-100 (Novolo g Flexpen U-100 Insulin) 100 unit/mL Insulin Pen Discontinued 0 UNIT SUBCUT As Directed as needed for Hyperglycemia 0 June 25, 2017 11:05am July 16, 2017 9:40am Please contact the information source for Protocol details. NovoLOG Active Insulin Lispro (5 sources) Insulin Analog Start: [...] Weight Dosing Start Date: 08/20/23 Status: Ordered lisinopril 5 mg oral tablet (20 sources) Angiotensin Converting Enzyme Inhibitor Start: 08-03-2024 End: 10-22-2024 take 1 tablet by mouth once daily Lisinopril 5 mg tablet Discontinued 5 MG PO Daily 90 August 03, 2024 1:00am October 22, 2024 7:06am Start: 05-14-2017 End: 07-20-2018 take 1 tablet by mouth once daily Lisinopril 2.5 mg Tablet Discontinued 2.5 MG PO Daily May 14, 2017 12:00am July 20, 2018 7:43am take 1 tablet by dayo th every twenty-four hours Lisinopril 5 MG 1 tablet Orally Once a day Active losartan potassium 25 mg oral tablet (20 sources) Angiotensin 2 Receptor Miquel Start: 07-20-2018 End: 09-09-2023 take 1 tablet by mouth once daily at bedtime Losartan 25 mg tablet Discontinued 25 MG PO Daily at bedtime July 20, 2018 1:00am September 09, 2023 4:26pm metoprolol tartrate 25 mg oral tablet (20 [...] Quantity: 60 Refills: 0 Ordered: 19-Dec-2016 David [employer], Veronica Active Multiple Vitamins/Minerals TABS (10 sources) Multiple Vitamins/Minerals TABS TAKE 1 TABLET DAILY. Quantity: 0 Refills: 0 Ordered: 19-Dec-2016 DO Active nitroglycerin 0.4 mg sublingual tablet (20 sources) Nitrate Vasodilator Start: 017 End: 024 Nitroglycerin (Nitrostat) 0.4 mg Tablet, Sublingual Discontinued 0.4 MG SUBLINGUAL Q5M as needed for Chest Pain June 23, 2017 1:00am September 09, 2023 4:27pm ondansetron 4 mg oral tablet (20 sources) Serotonin-3 Receptor Antagonist Start: 025 End: 025 take 1 tablet by mouth every eight hours as needed for nausea Ondansetron Hcl 4 mg tablet Discontinued 4 MG PO Q8H as needed for Nausea March 09, 2025 12:00am April 04, 2025 10:32am DO NOT RECONCILE UNTIL DOS:03/21/2025 MED TO BED Start: 12-05-2023 End: 01-12-2024 take 1 tablet by mouth every eight hours as needed for nausea Ondansetron Hcl 4 mg tablet Discontinued 4 MG PO Q8H as needed for Nausea December 05, 2023 12:00am January 12, 2024 4:21pm 24 hr oxybutynin chloride 15 mg extended release oral tablet (20 sources) Cholinergic Muscarinic Antagonist Start: 07-27-2024 End: 10-05-2024 take 1 tablet by mouth once daily Oxybutynin Chloride 15 mg tablet extended release 24hr Discontinued 0 .ROUTE .COMPLEX July 27, 2024 11:36am October 05, 2024 8:22am TAKE ONE TABLET BY MOUTH ONCE DAILY Start: 01-12-2024 End: 07-27-2024 take 1 tablet by mouth once daily Oxybutynin Chloride 15 mg tablet extended release 24hr Discontinued 15 MG PO Daily March 05, 2024 2:06pm April 02, 2024 8:20am Start: 01-01-2024 End: 01-12-2024 take 1 tablet [...] 24hr Discontinued 15 MG PO Daily December 11, 2023 12:00am January 01, 2024 8:43am Start: 09-03-2023 End: 12-11-2023 take 1 tablet by mouth once daily Oxybutynin Chloride 10 mg tablet extended release 24hr Discontinued 10 MG PO Daily November 27, 2023 12:00am December 11, 2023 4:20pm Start: 07-03-2023 End: 11-27-2023 take 1 tablet by mouth once daily Oxybutynin Chloride 5 mg tablet Discontinued 5 MG PO Daily September 12, 2023 1:00am November 27, 2023 2:32pm Start: 02-10-2023 take 1 tablet by dayo th once daily oxybutynin 10 mg ER Tab 10 mg = 1 tab(s), Oral, Daily, # 90 tab(s), Refills(s) 0, Pharmacy: [facility] [id number], 140.6, cm, 02/10/23 11:29:00 EDT, [...] 1 tablet Orally Twice a day Active oxyCODONE hydrochloride 5 mg oral tablet (5 sources) Opioid Agonist Start: 03-09-2025 End: 04-04-2025 take 1 tablet by mouth every four hours as needed for pain Oxycodone 5 mg tablet Discontinued 5 MG PO Q4H as needed for Pain 42 7 March 09, 2025 April 04, 2025 10:32am DO NOT RECONCILE UNTIL DOS:03/21/2025 MED TO BED pantoprazole 20 mg delayed release oral tablet (7 sources) Proton Pump Inhibitor Start: 03-09-2025 End: 04-06-2025 take 1 tablet by mouth once daily Pantoprazole (Protonix) 20 mg tablet,delayed release (DR/EC) Discontinued 20 MG PO daily 35 35 April 04, 2025 10:32am April 06, 2025 3:31pm DO NOT RECONCILE UNTIL DOS:03/21/2025 MED TO BED polyethylene glycol 3350 84611 mg powder for oral solution (5 sources) Osmotic Laxative Start: 03-09-2025 End: 04-04-2025 Polyethylene Glycol 3350 (Miralax) 17 gram/dose powder Discontinued 17 GM PO daily 7 March 09, 2025 12:00am April 04, 2025 10:32am 1 packed mixed with 8 ounces of fluid. DO NOT RECONCILE UNTIL DOS:03/21/2025 MED TO BED predniSONE 10 mg oral tablet (5 sources) Start: 03-09-2025 End: 04-04-2025 take 1 tablet by mouth once daily Prednisone 10 mg tablet Discontinued 10 MG PO daily 10 March 09, 2025 12:00am April 04, 2025 10:32am DO NOT RECONCILE UNTIL DOS:03/21/2025 MED TO BED regadenoson (Lexiscan) injection 0.4 mg (2 sources) [...] mg / trimethoprim 160 mg oral tablet (20 sources) Dihydrofolate Reductase Inhibitor Antibacterial, Sulfonamide Antimicrobial [...] millicurie traMADol hydrochloride 50 mg oral tablet (20 sources) Opioid Agonist Start: 03-09-2025 End: 04-04-2025 take 1 tablet by mouth every six hours as needed for pain Tramadol 50 mg tablet Discontinued 50 MG PO Q6H as needed for Pain 40 7 March 09, 2025 12:00am April 04, 2025 10:32am DO NOT RECONCILE UNTIL DOS:03/21/2025 MED TO BED Start: 07-24-2018 End: 07-31-2018 take 1 tablet by mouth every four to six hours as needed for pain Tramadol 50 mg tablet Discontinued 50 MG PO EVERY 4-6 HOURS as needed for pain 20 7 July 24, 2018 1:00am July 30, 2018 1:00am July 31, 2018 1:02am Vitamin B Complex (17 sources) Start: 05-14-2017 End: 07-20-2018 take 1 tablet by mouth once daily Vitamin B Complex Discontinued 1 TAB PO Daily May 14, 2017 12:00am July 20, 2018 7:44am Vitamin B Comple x - Orally Active Vitamin B Complex Tablet (20 sources) Start: 05-14-2017 End: 07-20-2018 take 1 tablet by mouth once daily Vitamin B Complex Tablet Discontinued 1 TAB PO Daily May 14, 2017 12:00am July 20, 2018 7:44am Start: 05-14-2017 End: 07-20-2018 take 1 tablet by mouth once daily Vitamin B Complex Tablet Discontinued 1 TAB PO Daily May 13, 2017 11:00pm July 20, 2018 6:44am Problems Active Problems Problem Classification Problem Date Documented Date Episodic/Chronic Abdominal pain (2 sources) Flank pain 03-05-2023 Episodic Acute and unspecified renal failure (20 sources) Acute renal failure syndrome; Translations: [Acute kidney failure, unspecified] Onset: 4 01-22-2024 Episodic Administrative/socia l admission (5 sources) Impaired mobility; Translations: [Other reduced mobility] Onset: 5 03-23-2025 Episodic Aortic and peripheral arterial embolism or [...] Onset: 4 Chronic Congestive heart failure; nonhypertensive (20 sources) Heart failure; Translations: [Heart failure, unspecified] Onset: 5 07-01-2024 Chronic Congestive heart failure; nonhypertensive (1 source) Congestive heart failure; nonhypertensive Onset: 8 Coronary atherosclerosis and other heart disease (20 sources) Chronic ischemic heart disease, unspecified; Translations: [Atherosclerotic heart disease of [place] coronary artery without angina pectoris] Onset: 8 Resolved: 5 09-17-2023 Chronic Deficiency and other anemia (1 source) 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c kidney disease; Translations: [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c kidney disease] Onset: 4 Chronic Deficiency and other anemia (20 sources) Anemia; Translations: [Anemia, unspecified] 12-05-2023 Episodic [...] OP CDI policy. Diabetes mellitus without complication (5 sources) Steroid-induced hyperglycemia; Translations: [Hyperglycemia, unspecified] Onset: 5 03-23-2025 Episodic Diabetes mellitus without complication (1 source) Diabetes mellitus without complication Onset: 8 Disorders of lipid metabolism (20 sources) Dyslipidemia; Translations: [Other and unspecified hyperlipidemia] Onset: 3 Resolved: 3 02-05-2023 Chronic E Codes: Adverse effects of medical drugs (1 source) Adverse effect of glucocorticoids and synthetic analogues, initial encounter; Translations: [Adverse effect of glucocorticoids and synthetic analogues, initial encounter] Onset: 5 Episodic Essential hypertension (20 sources) Hypertensive disorder; Translations: [Unspecified essential hypertension] Onset: 3 09-17-2023 Chronic Essential hypertension (1 source) Essential hypertension Onset: 8 Genitourinary symptoms and ill-defined conditions (3 sources) Urinary incontinence 02-10-2023 Chronic Genitourinary symptoms and ill-defined conditions (20 sources) Urinary tract obstruction; Translations: [Obstructive and reflux uropathy, unspecified] 01-22-2024 Episodic Gout and other crystal arthropathies (20 sources) [...] Onset: 4 01-12-2024 Chronic Malaise and fatigue (20 sources) Asthenia; Translations: [Weakness] Onset: 4 Episodic Nutritional deficiencies (3 sources) Vitamin D deficiency 02-05-2023 Chronic Occlusion or stenosis of precerebral arteries (20 sources) Right carotid artery occlusion; Translations: [Occlusion and stenosis of carotid artery without mention of cerebral infarction] Onset: 3 09-17-2023 Chronic Osteoarthritis (20 sources) Osteoarthritis of left hip joint; Translations: [Unilateral primary osteoarthritis, left hip] Onset: 5 Chronic Osteoporosis (20 sources) Osteoporosis; Translations: [Age-related osteoporosis without current pathological fracture] 11-24-2023 Chronic Other aftercare (20 sources) Long-term current use of drug therapy; Translations: [Other terminal supervisor (current) drug therapy] Onset: 4 11-24-2023 Episodic Other aftercare (3 sources) detention (current) use of insulin; Translations: [detention (current) use of insulin (Multi)] Onset: 3 Episodic Other circulatory disease (20 sources) Carotid bruit; Translations: [Other symptoms involving cardiovascular system] Onset: 3 07-08-2023 Episodic Other circulatory disease (1 source) H/O: heart failure; Translations: [Personal history of other diseases of the circulatory system] 01-23-2024 Episodic Other circulatory disease (1 source) Personal history of other diseases of the circulatory system; Translations: [Personal history of other diseases of circulatory system] 01-25-2024 Episodic Other connective tissue disease (9 sources) History of total hip arthroplasty; Translations: [Presence of left artificial hip joint] 03-22-2025 Chronic Other connective tissue disease (1 source) Presence of left artificial hip joint; Translations: [Presence of left artificial hip joint] Onset: 5 Chronic Other diseases of bladder and urethra (20 sources) Overactive bladder; Translations: [Overactive bladder] 11-27-2023 Chronic Other diseases of bladder and urethra (9 sources) Overactive bladder; Translations: [Hypertonicity of bladder] 11-27-2023 Chronic Other diseases of kidney and ureters (20 sources) Secondary hyperparathyroidism; Translations: [Secondary hyperparathyroidism of renal origin] 01-12-2024 Chronic Other diseases of kidney and ureters (19 sources) Secondary hyperparathyroidism of renal origin; Translations: [Secondary hyperparathyroidism (of renal origin)] Onset: 4 01-12-2024 Chronic Other diseases of kidney and ureters (4 sources) Hydronephrosis; Translations: [Unspecified hydronephrosis] Onset: 4 01-22-2024 Episodic Other diseases of kidney and ureters (20 sources) Hydroureter; Translations: [Hydroureter] 01-22-2024 Episodic Other diseases of kidney and ureters (20 sources) Bilateral hydronephrosis ; Translations: [Unspecified hydronephrosis] 01-22-2024 Episodic Other diseases of kidney and ureters (7 sources) Unspecified hydronephrosis; Translations: [Hydronephrosis] 01-25-2024 Episodic Other diseases of kidney and [...] Onset: 4 Chronic Other non-traumatic joint disorders (2 sources) Pain in left hip; Translations: [Pain in left hip] Onset: 5 Episodic Other non-traumatic joint disorders (20 sources) Hip pain; Translations: [Pain in left [...] Chronic Other nutritional; endocrine; and metabolic disorders (20 sources) Obesity caused by energy imbalance; Translations: [Morbid (severe) obesity due to excess calories] 01-11-2025 Chronic Other nutritional; endocrine; and metabolic disorders (9 sources) Drug-induced obesity; Translations: [Class 1 drug-induced obesity with body mass index (BMI) of 33.0 to 33.9 in adult] 01-11-2025 Chronic Other nutritional; endocrine; and metabolic disorders (2 sources) Body mass index (BMI) 33.0-33.9, adult; Translations: [Body mass index (BMI) 33.0-33.9, adult] Onset: 5 Chronic Other nutritional; endocrine; and metabolic disorders (1 source) Morbid (severe) obesity due to excess calories; Translations: [Morbid (severe) obesity due to excess calories] Onset: 5 Chronic Peripheral and visceral atherosclerosis (20 sources) Peripheral vascular disease; Translations: [Peripheral vascular disease, unspecified] Onset: 3 07-08-2023 Chronic Residual codes; unclassified (10 sources) Other specified health status; Translations: [Statin intolerance] Episodic Residual codes; unclassified (2 sources) Swelling - edema - symptom; Translations: [Edema] Episodic Septicemia (except in labor) (20 sources) Sepsis; Translations: [Sepsis, unspecified organism] Onset: [...] Unclassified (2 sources) Athscl heart disease of [place] coronary artery w/o ang pctrs / I25.10(ICD-9) [...] insulin glargine. added per OP CDI policy. Unclassified (1 source) You should certainly finish your antifungal therapy due to the yeast infection. Unclassified (1 source) Please call my office to make arrangements for your next scope and stent change in about 5 months. I did not provide additional antibiotics other than that provided during your procedure. Unclassified (4 sources) Rehab physician-follow up if needed Urinary tract infections (20 sources) Urinary tract infectious disease; Translations: [Urinary tract infection, site not specified] Onset: 4 09-10-2023 Episodic Past or Other Problems Problem Classification Problem Date Documented Date Episodic/Chronic Bacterial infection; unspecified site (1 source) Bacterial infection, unspecified; Translations: [Bacterial infection, unspecified] Onset: 5 Episodic Conditions associated with dizziness or vertigo (20 sources) Dizziness; Translations: [Dizziness and giddiness] Onset: 3 07-08-2023 Episodic Coronary atherosclerosis and other heart disease (8 sources) Presence of aortocoronary bypass graft; Translations: [Aortocoronary bypass status] Onset: 3 01-25-2024 Episodic Fluid and electrolyte disorders (20 sources) Hyperkalemia; Translations: [Hyperpotassemia] Onset: 3 07-08-2023 Episodic Other circulatory disease (20 sources) History of angioplasty; Translations: [Other postprocedural status] Onset: 3 Resolved: 5 09-17-2023 Episodic Other circulatory disease (2 sources) Other specified symptoms and signs involving the circulatory and respiratory systems; Translations: [Other specified symptoms and signs involving the circulatory and respiratory systems] Onset: 5 Episodic Other connective tissue disease (20 sources) [...] 3 07-08-2023 Episodic Other lower respiratory disease (4 sources) Dyspnea; Translations: [Shortness of breath] Onset: 4 09-17-2023 Episodic Other lower respiratory disease (1 source) Shortness of breath; Translations: [Shortness of breath] [...] (12 sources) Onset: 4 Resolved: 5 09-17-2023 Results Test Name Value Interpretation Reference Range Facil ity Glucose Poct Glucometerson 0 04-04-2025 Glucose [Mass/Vol] 155 mg/dL Normal [facility] Comment on above: Result Comment: [place] Glucose Reference Range is dependent on time and content of last meal. Glucose of more than 200 mg/dL in a nonstressed, ambulatory subject supports the diagnosis of Diabetes Mellitus.PERFORMED BY:[address] [place] [place], [place] [phone] MEDICAL JULIAN PADILLA M.D. Performed By: #### G LULS ####Point of Care testing, Glucose [Mass/Vol] 166 mg/dL Normal [facility] Comment on above: Result Comment: [place] om Glucose Reference Range is dependent on time and content of last meal. Glucose of more than 200 mg/dL in a nonstressed, ambulatory subject supports the diagnosis of Diabetes Mellitus.PERFORMED BY:[address] [place], [place] [phone] MEDICAL JULIAN PADILLA M.D. Performed By: #### G LULS ####Point of Care testing, Glucose Poct Glucometerson 0 04-03-2025 Glucose [Mass/Vol] 141 mg/dL Normal [facility] Comment on above: Result Comment: [place] om Glucose Reference Range is dependent on time and content of last meal. Glucose of more than 200 mg/dL in a nonstressed, ambulatory subject supports the diagnosis of Diabetes Mellitus.PERFORMED BY:[address] [place], [place] [phone] CHRISTOPHER PADILLA M.D. Performed By: #### G LULS ####Point of Care testing, Glucose [Mass/Vol] 187 mg/dL Normal [facility] Comment on above: Result Comment: [facility] Glucose Reference Range is dependent on time and content of last meal. Glucose of more than 200 mg/dL in a nonstressed, ambulatory subject supports the diagnosis of Diabetes Mellitus.PERFORMED BY:[address] [place] [place], [place] [phone] MEDICAL JULIAN PADILLA M.D. Performed By: #### G LULS ####Point of Care testing, Commemt1 Glu2: Cleaned Meter Normal [facility] Comment on above: Result Comment: PERF ORMED BY:[address] [place], [place] [phone] MEDICAL JULIAN PADILLA M.D. Performed By: #### G LULS ####Point of Care testing, Glucose [Mass/Vol] 332 mg/dL Normal [facility] Comment on above: Result Comment: [place] om Glucose Reference Range is dependent on time and content of last meal. Glucose of more than 200 mg/dL in a nonstressed, ambulatory subject supports the diagnosis of Diabetes Mellitus. Performed By: #### G LULS ####Point of Care testing, Commemt1 Glu2: Cleaned Meter Normal [facility] Comment on above: Result Comment: PERF ORMED BY:[address] [place], [place] [phone] MEDICAL JULIAN PADILLA M.D. Performed By: #### G LULS ####Point of Care testing, Glucose [Mass/Vol] 191 mg/dL Normal [facility] Comment on above: Result Comment: [place] om Glucose Reference Range is dependent on time and content of last meal. Glucose of more than 200 mg/dL in a nonstressed, ambulatory subject supports the diagnosis of Diabetes Mellitus. Performed By: #### G LULS ####Point of Care testing, Commemt1 Glu2: Cleaned Meter Normal [facility] Comment on above: Result Comment: PERF ORMED BY:[address] [place], [place] [phone] MEDICAL JULIAN PADILLA M.D. Performed By: #### G LULS ####Point of Care testing, Glucose [Mass/Vol] 81 mg/dL Normal [facility] Comment on above: Result Comment: [place] om Glucose Reference Range is dependent on time and content of last meal. Glucose of more than 200 mg/dL in a nonstressed, ambulatory subject supports the diagnosis of Diabetes Mellitus. Performed By: #### G LULS ####Point of Care testing, Glucose [Mass/Vol] 67 mg/dL Normal [facility] Comment on above: Result Comment: [place] om Glucose Reference Range is dependent on time and content of last meal. Glucose of more than 200 mg/dL in a nonstressed, ambulatory subject supports the diagnosis of Diabetes Mellitus.PERFORMED BY:[address] [place], [place] [phone] MEDICAL JULIAN PADILLA M.D. Performed By: #### G LULS ####Point of Care testing, Commemt1 Glu2: Cleaned Meter Normal [facility] Comment on above: Result Comment: PERF ORMED BY:[address] [place], [place] [phone] MEDICAL JULIAN PADILLA M.D. Performed By: #### G LULS ####Point of Care testing, Glucose [Mass/Vol] 61 mg/dL Normal [facility] Comment on above: Result Comment: [place] om Glucose Reference Range is dependent on time and content of last meal. Glucose of more than 200 mg/dL in a nonstressed, ambulatory subject supports the diagnosis of Diabetes Mellitus. Performed By: #### G LULS ####Point of Care testing, Glucose Poct Glucometerson 0 04-02-2025 Glucose [Mass/Vol] 105 mg/dL Normal [facility] Comment on above: Result Comment: [place] om Glucose Reference Range is dependent on time and content of last meal. Glucose of more than 200 mg/dL in a nonstressed, ambulatory subject supports the diagnosis of Diabetes Mellitus.PERFORMED BY:[address] [place]FBogdan[place]ITA[place], [place] [phone] CHRISTOPHER PADILLA M.D. Performed By: #### G LULS ####Point of Care testing, Glucose [Mass/Vol] 175 mg/dL Normal [facility] Comment on above: Result Comment: [place] om Glucose Reference Range is dependent on time and content of last meal. Glucose of more than 200 mg/dL in a nonstressed, ambulatory subject supports the diagnosis of Diabetes Mellitus.PERFORMED BY:[address] [place] [place], [place] [phone] CHRISTOPHER PADILLA M.D. Performed By: #### G LULS ####Point of Care testing, Glucose [Mass/Vol] 178 mg/dL Normal [facility] Comment on above: Result Comment: [place] om Glucose Reference Range is dependent on time and content of last meal. Glucose of more than 200 mg/dL in a nonstressed, ambulatory subject supports the diagnosis of Diabetes Mellitus.PERFORMED BY:[address] [place], [place] [phone] MEDICAL JULIAN PADILLA M.D. Performed By: #### G LULS ####Point of Care testing, Glucose [Mass/Vol] 146 mg/dL Normal [facility] Comment on above: Result Comment: [place] om Glucose Reference Range is dependent on time and content of last meal. Glucose of more than 200 mg/dL in a nonstressed, ambulatory subject supports the diagnosis of Diabetes Mellitus.PERFORMED BY:[address] [place], [place] [phone] MEDICAL JULIAN PADILLA M.D. Performed By: #### G LULS ####Point of Care testing, Commemt1 Glu2: Cleaned Meter Normal [facility] Comment on above: Result Comment: PERF ORMED BY:[address] [place], [place] [phone] CHRISTOPHER PADILLA M.D. Performed By: #### G LULS ####Point of Care testing, Glucose [Mass/Vol] 74 mg/dL Normal [facility] Comment on above: Result Comment: [place] om Glucose Reference Range is dependent on time and content of last meal. Glucose of more than 200 mg/dL in a nonstressed, ambulatory subject supports the diagnosis of Diabetes Mellitus. Performed By: #### G LULS ####Point of Care testing, Commemt1 Glu2: Cleaned Meter Normal [facility] Comment on above: Result Comment: PERF ORMED BY:[address] [place], [place] [phone] CHRISTOPHER PADILLA M.D. Performed By: #### G LULS ####Point of Care testing, Glucose [Mass/Vol] 94 mg/dL Normal [facility] Comment on above: Result Comment: [place] om Glucose Reference Range is dependent on time and content of last meal. Glucose of more than 200 mg/dL in a nonstressed, ambulatory subject supports the diagnosis of Diabetes Mellitus. Performed By: #### G LULS ####Point of Care testing, Commemt1 Glu2: Cleaned Meter Normal [facility] Comment on above: Result Comment: PERF ORMED BY:[address] [place], [place] [phone] MEDICAL DIRECTORALINA PADILLA M.D. Performed By: #### G LULS ####Point of Care testing, Glucose [Mass/Vol] 75 mg/dL Normal [facility] Comment on above: Result Comment: [place] om Glucose Reference Range is dependent on time and content of last meal. Glucose of more than 200 mg/dL in a nonstressed, ambulatory subject supports the diagnosis of Diabetes Mellitus. Performed By: #### G LULS ####Point of Care testing, Commemt1 Glu2: Cleaned Meter Normal [facility] Comment on above: Result Comment: PERF ORMED BY:[address] [place], [place] [phone] MEDICAL UJLIAN PADILLA M.D. Performed By: #### G LULS ####Point of Care testing, Glucose [Mass/Vol] 62 mg/dL Normal [facility] Comment on above: Result Comment: [place] om Glucose Reference Range is dependent on time and content of last meal. Glucose of more than 200 mg/dL in a nonstressed, ambulatory subject supports the diagnosis of Diabetes Mellitus. Performed By: #### G LULS ####Point of Care testing, Basic Metabolic Panelon 03-14 Anion gap [Moles/Vol] 8.9 mmol/L Normal 6.0-15.0 [facility] Comment on above: Performed By: #### B MP ####[address] [address] [facility] Calcium [Mass/Vol] 8.6 mg/dL Normal 8.6-10.3 [facility] Comment on above: Performed By: #### B MP ####[address] [address] [facility] Chloride [Moles/Vol] 103 mmol/L Normal 98-107 [facility] Comment on above: Performed By: #### B MP ####[address] [address] [facility] CO2 [Moles/Vol] 29.8 mmol/L Normal 21.0-31.0 [facility] Comment on above: Performed By: #### B MP ####[address] [address] [facility] Creatinine [Mass/Vol] 1.69 mg/dL High 0.60-1.20 [facility] Comment on above: Performed By: #### B MP ####[address] [address] [facility] Creatinine Clr Calc Pharmacy 25.05 Normal [facility] Comment on above: Result Comment: PERF ORMED BY:[address] [place], [place] [phone] MEDICAL JULIAN PADILLA M.D. Performed By: #### B MP ####[address] [address] [facility] GFR/1.73 sq M.predicted MDRD (S/P/Bld) [Vol rate/Area] 30.531 mL/min/{1.73_m2} Normal [facility] Comment on above: Performed By: #### B MP ####[address] [address] [facility] Glucose [Mass/Vol] 120 mg/dL High 70-100 [facility] Comment on above: Result Comment: [place] Glucose Reference Range is dependent on time and content of last meal. Glucose of more than 200 mg/dL in a nonstressed, ambulatory subject supports the diagnosis of Diabetes Mellitus. ADA recommended reference range Performed By: #### B MP ####[place] [id number] [facility] Potassium [Moles/Vol] 4.7 mmol/L Normal 3.5-5.1 [facility] Comment on above: Performed By: #### B MP ####[place] [id number] [facility] Sodium [Moles/Vol] 137 mmol/L Normal 136-145 [facility] Comment on above: Performed By: #### B MP ####[place] [id number] [facility] Urea nitrogen [Mass/Vol] 52 mg/dL High 7-25 [facility] Comment on above: Performed By: #### B MP ####[place] [id number] [facility] Glucose Poct Glucometerson 0 04-01-2025 Commemt1 Glu2: Cleaned Meter Normal [facility] Comment on above: Result Comment: PERF ORMED BY:[address] [place], [place] [phone] MEDICAL JULIAN PADILLA M.D. Performed By: #### G LULS ####Point of Care testing, Glucose [Mass/Vol] 161 mg/dL Normal [facility] Comment on above: Result Comment: [place] Glucose Reference Range is dependent on time and content of last meal. Glucose of more than 200 mg/dL in a nonstressed, ambulatory subject supports the diagnosis of Diabetes Mellitus. Performed By: #### G LULS ####Point of Care testing, Glucose [Mass/Vol] 108 mg/dL Normal [facility] Comment on above: Result Comment: [place] om Glucose Reference Range is dependent on time and content of last meal. Glucose of more than 200 mg/dL in a nonstressed, ambulatory subject supports the diagnosis of Diabetes Mellitus.PERFORMED BY:[address] [place], [place] [phone] CHRISTOPHER PADILLA M.D. Performed By: #### G LULS ####Point of Care testing, Glucose [Mass/Vol] 62 mg/dL Normal [facility] Comment on above: Result Comment: [place] Glucose Reference Range is dependent on time and content of last meal. Glucose of more than 200 mg/dL in a nonstressed, ambulatory subject supports the diagnosis of Diabetes Mellitus.PERFORMED BY:[address] [place] [place], [place] [phone] CHRISTOPHER PADILLA M.D. Performed By: #### G LULS ####Point of Care testing, Commemt1 Normal [facility] Comment on above: Result Comment: Glu2 : FOLLOW HYPOGLYCEMICPERFORMED BY:[address] [place], [place] [phone] MEDICAL JULIAN PADILLA M.D. Performed By: #### G LULS ####Point of Care testing, Glucose [Mass/Vol] 59 mg/dL Off scale low [facility] Comment on above: Result Comment: [place] om Glucose Reference Range is dependent on time and content of last meal. Glucose of more than 200 mg/dL in a nonstressed, ambulatory subject supports the diagnosis of Diabetes Mellitus. Performed By: #### G LULS ####Point of Care testing, Commemt1 Glu2: Cleaned Meter Normal [facility] Comment on above: Result Comment: PERF ORMED BY:[address] [place], [place] [phone] MEDICAL JULIAN PADILLA M.D. Performed By: #### G LULS ####Point of Care testing, Glucose [Mass/Vol] 97 mg/dL Normal [facility] Comment on above: Result Comment: [place] om Glucose Reference Range is dependent on time and content of last meal. Glucose of more than 200 mg/dL in a nonstressed, ambulatory subject supports the diagnosis of Diabetes Mellitus. Performed By: #### G LULS ####Point of Care testing, Commemt1 Glu2: Cleaned Meter Normal [facility] Comment on above: Result Comment: PERF ORMED BY:[address] [place], [place] [phone] CHRISTOPHER PADILLA M.D. Performed By: #### G LULS ####Point of Care testing, Glucose [Mass/Vol] 128 mg/dL Normal [facility] Comment on above: Result Comment: [place] om Glucose Reference Range is dependent on time and content of last meal. Glucose of more than 200 mg/dL in a nonstressed, ambulatory subject supports the diagnosis of Diabetes Mellitus. Performed By: #### G LULS ####Point of Care testing, Glucose [Mass/Vol] 121 mg/dL Normal [facility] Comment on above: Result Comment: [place] om Glucose Reference Range is dependent on time and content of last meal. Glucose of more than 200 mg/dL in a nonstressed, ambulatory subject supports the diagnosis of Diabetes Mellitus.PERFORMED BY:[address] [place], [place] [phone] CHRISTOPHER PADILLA M.D. Performed By: #### G LULS ####Point of Care testing, Glucose [Mass/Vol] 79 mg/dL Normal [facility] Comment on above: Result Comment: [place] om Glucose Reference Range is dependent on time and content of last meal. Glucose of more than 200 mg/dL in a nonstressed, ambulatory subject supports the diagnosis of Diabetes Mellitus.PERFORMED BY:[address] [place], [place] [phone] CHRISTOPHER PADILLA M.D. Performed By: #### G LULS ####Point of Care testing, Glucose [Mass/Vol] 64 mg/dL Normal [facility] Comment on above: Result Comment: [place] om Glucose Reference Range is dependent on time and content of last meal. Glucose of more than 200 mg/dL in a nonstressed, ambulatory subject supports the diagnosis of Diabetes Mellitus.PERFORMED BY:[address] [place], [place] [phone] CHRISTOPHER PADILLA M.D. Performed By: #### G LULS ####Point of Care testing, Glucose [Mass/Vol] 140 mg/dL Normal [facility] Comment on above: Result Comment: [place] om Glucose Reference Range is dependent on time and content of last meal. Glucose of more than 200 mg/dL in a nonstressed, ambulatory subject supports the diagnosis of Diabetes Mellitus.PERFORMED BY:[address] [place] [place], [place] [phone] MEDICAL JULIAN PADILLA M.D. Performed By: #### G LULS ####Point of Care testing, B-Type Natriuretic Peptideon 03-31-2025 Natriuretic peptide B (Bld) [Mass/Vol] 791.0 pg/mL High 5-100 [facility] Comment on above: Result Comment: PERF ORMED BY:[address] [place] [place], [place] [phone] MEDICAL JULIAN PADILLA M.D. Performed By: #### B SPARE HAND CARDING, CBC ####[place] [id number] [facility] Complete Blood Count Auto Di ffon 03-31-2025 Basophils (Bld) [#/Vol] 0.1 10*3/uL Normal 0.0-0.2 [facility] Comment on above: Result Comment: PERF ORMED BY:[address] [place], [place] [phone] MEDICAL JULIAN PADILLA M.D. Performed By: #### B SPARE HAND CARDING, CBC ####[place] [id number] [facility] Basophils/100 WBC (Bld) 0.5 % Normal . [facility] Comment on above: Performed By: #### B SPARE HAND CARDING, CBC ####[place] [id number] [facility] Eosinophils (Bld) [#/Vol] 0.0 10*3/uL Normal 0.0-0.45 [facility] Comment on above: Performed By: #### B SPARE HAND CARDING, CBC ####[place] [id number] [facility] Eosinophils/100 WBC (Bld) 0.2 % Normal . [facility] Comment on above: Performed By: #### B SPARE HAND CARDING, CBC ####[address] [address] [place] Erythrocyte distribution width (RBC) [Ratio] 17.6 % High 11.9-15.3 [facility] Comment on above: Performed By: #### B SPARE HAND CARDING, CBC ####[address] Hematocrit (Bld) [Volume fraction] 30.6 % Low 34.0-46.4 [facility] Comment on above: Performed By: #### B SPARE HAND CARDING, CBC ####[address] Hemoglobin (Bld) [Mass/Vol] 9.7 g/dL Low 11.8-15.4 [facility] Comment on above: Performed By: #### B SPARE HAND CARDING, CBC ####[address] Lymphocytes (Bld) [#/Vol] 1.1 10*3/uL Normal 1.00-4.8 [facility] Comment on above: Performed By: #### B SPARE HAND CARDING, CBC ####[address] Lymphocytes/100 WBC (Bld) 8.2 % Normal . [facility] Comment on above: Performed By: #### B SPARE HAND CARDING, CBC ####[address] MCH (RBC) [Entitic mass] 32.6 pg Normal 24.7-34.3 [facility] Comment on above: Performed By: #### B SPARE HAND CARDING, CBC ####[address] MCV (RBC) [Entitic vol] 103.0 fL High 80-100 [facility] Comment on above: Performed By: #### B SPARE HAND CARDING, CBC ####[address] Mean Corpuscular HGB Conc 31.7 g/dL Low 32.0-35.0 [facility] Comment on above: Performed By: #### B SPARE HAND CARDING, CBC ####[address] [place] [address] [place] Monocytes (Bld) [#/Vol] 0.7 10*3/uL Normal 0.0-0.8 [facility] Comment on above: Performed By: #### B SPARE HAND CARDING, CBC ####[address] Monocytes/100 WBC (Bld) 5.6 % Normal . [facility] Comment on above: Performed By: #### B SPARE HAND CARDING, CBC ####[address] Neutrophils (Bld) [#/Vol] 11.2 10*3/uL High 1.8-7.7 [facility] Comment on above: Performed By: #### B SPARE HAND CARDING, CBC ####[address] Neutrophils/100 WBC (Bld) 85.5 % Normal . [facility] Comment on above: Performed By: #### B SPARE HAND CARDING, CBC ####[address] NRBC% 0.2 /100{WBC} Normal 0-0.5 [facility] Comment on above: Performed By: #### B SPARE HAND CARDING, CBC ####[address] Platelet mean volume (Bld) [Entitic vol] 9.4 fL Normal 6.3-10.7 [facility] Comment on above: Performed By: #### B SPARE HAND CARDING, CBC ####[address] Platelets (Bld) [#/Vol] 200 10*3/uL Normal 150-450 [facility] Comment on above: Performed By: #### B SPARE HAND CARDING, CBC ####[address] RBC (Bld) [#/Vol] 2.97 10*6/uL Low 3.60-5.00 [facility] Comment on above: Performed By: #### B SPARE HAND CARDING, CBC ####[address] [address] [facility] WBC (Bld) [#/Vol] 13.1 10*3/uL High 3.8-11.6 [facility] Comment on above: Performed By: #### B SPARE HAND CARDING, CBC ####[place] [id number] [place] [id number] [facility] [facility] White Blood Count 13.1 [CFU]/mL High 3.8-11.6 [facility] Comment on above: Performed By: #### B SPARE HAND CARDING, CBC ####[place] [id number] [facility] Glucose Poct Glucometerson 0 03-31-2025 Glucose [Mass/Vol] 264 mg/dL Normal [facility] Comment on above: Result Comment: [facility] Glucose Reference Range is dependent on time and content of last meal. Glucose of more than 200 mg/dL in a nonstressed, ambulatory subject supports the diagnosis of Diabetes Mellitus.PERFORMED BY:[address] [place], [place] [phone] MEDICAL JULIAN PADILLA M.D. Performed By: #### G LULS ####Point of Care testing, Glucose [Mass/Vol] 263 mg/dL Normal [facility] Comment on above: Result Comment: [facility] Glucose Reference Range is dependent on time and content of last meal. Glucose of more than 200 mg/dL in a nonstressed, ambulatory subject supports the diagnosis of Diabetes Mellitus.PERFORMED BY:[address] [place], [place] [phone] MEDICAL JULIAN PADILLA M.D. Performed By: #### G LULS ####Point of Care testing, Glucose [Mass/Vol] 126 mg/dL Normal [facility] Comment on above: Result Comment: [facility] Glucose Reference Range is dependent on time and content of last meal. Glucose of more than 200 mg/dL in a nonstressed, ambulatory subject supports the diagnosis of Diabetes Mellitus.PERFORMED BY:[address] [place], [place] [phone] CHRISTOPHER PADILLA M.D. Performed By: #### G LULS ####Point of Care testing, Commemt1 Glu2: Cleaned Meter Normal [facility] Comment on above: Result Comment: PERF ORMED BY:[address] [place] [address] [address] [place], [place] [phone] MEDICAL JULIAN PADILLA M.D. Performed By: #### G LULS ####Point of Care testing, Glucose [Mass/Vol] 120 mg/dL Normal [facility] Comment on above: Result Comment: [place] [facility] Glucose Reference Range is dependent on time and content of last meal. Glucose of more than 200 mg/dL in a nonstressed, ambulatory subject supports the diagnosis of Diabetes Mellitus. Performed By: #### G LULS ####Point of Care testing, Glucose [Mass/Vol] 68 mg/dL Normal [facility] Comment on above: Result Comment: [place] [facility] Glucose Reference Range is dependent on time and content of last meal. Glucose of more than 200 mg/dL in a nonstressed, ambulatory subject supports the diagnosis of Diabetes Mellitus.PERFORMED BY:[address] [place], [place] [phone] MEDICAL JULIAN PADILLA M.D. Performed By: #### G LULS ####Point of Care testing, Glucose [Mass/Vol] 61 mg/dL Normal [facility] Comment on above: Result Comment: [place] [facility] Glucose Reference Range is dependent on time and content of last meal. Glucose of more than 200 mg/dL in a nonstressed, ambulatory subject supports the diagnosis of Diabetes Mellitus.PERFORMED BY:[address] [place], [place] [phone] MEDICAL JULIAN PADILLA M.D. Performed By: #### G LULS ####Point of Care testing, Glucose Poct Glucometerson 0 03-30-2025 Glucose [Mass/Vol] 288 mg/dL Normal [facility] Comment on above: Result Comment: [place] Glucose Reference Range is dependent on time and content of last meal. Glucose of more than 200 mg/dL in a nonstressed, ambulatory subject supports the diagnosis of Diabetes Mellitus.PERFORMED BY:[address] [place], [place] [phone] MEDICAL JULIAN PADILLA M.D. Performed By: #### G LULS ####Point of Care testing, Glucose [Mass/Vol] 216 mg/dL Normal [facility] Comment on above: Result Comment: [place] [facility] Glucose Reference Range is dependent on time and content of last meal. Glucose of more than 200 mg/dL in a nonstressed, ambulatory subject supports the diagnosis of Diabetes Mellitus.PERFORMED BY:[address] [place], [place] [phone] MEDICAL JULIAN PADILLA M.D. Performed By: #### G LULS ####Point of Care testing, Commemt1 Glu2: Cleaned Meter Normal [facility] Comment on above: Result Comment: PERF ORMED BY:[address] [place] [place], [place] [phone] CHRISTOPHER PADILLA M.D. Performed By: #### G LULS ####Point of Care testing, Glucose [Mass/Vol] 109 mg/dL Normal [facility] Comment on above: Result Comment: [place] Glucose Reference Range is dependent on time and content of last meal. Glucose of more than 200 mg/dL in a nonstressed, ambulatory subject supports the diagnosis of Diabetes Mellitus. Performed By: #### G LULS ####Point of Care testing, Glucose [Mass/Vol] 108 mg/dL Normal [facility] Comment on above: Result Comment: [place] Glucose Reference Range is dependent on time and content of last meal. Glucose of more than 200 mg/dL in a nonstressed, ambulatory subject supports the diagnosis of Diabetes Mellitus.PERFORMED BY:[address] [place], [place] [phone] CHRISTOPHER PADILLA M.D. Performed By: #### G LULS ####Point of Care testing, Glucose [Mass/Vol] 222 mg/dL Normal [facility] Comment on above: Result Comment: [facility] Glucose Reference Range is dependent on time and content of last meal. Glucose of more than 200 mg/dL in a nonstressed, ambulatory subject supports the diagnosis of Diabetes Mellitus.PERFORMED BY:[address] [place] [place], [place] [phone] MEDICAL JULIAN PADILLA M.D. Performed By: #### G LULS ####Point of Care testing, BioFire Not Detectedon 03-29 BioFire Not Detected Not detected Normal Not Detecte [facility] Comment on above: Result Comment: This is a duplicate RP2.1 COVID (PCR) result to be used for statistical tracking purpose only.PERFORMED BY:[address] [place], [place] [phone] MEDICAL JULIAN PADILLA M.D. Performed By: #### B IOFIRECOVNOTDE, RESP PANEL UPP. ####[address] [address] [facility] Glucose Poct Glucometerson 0 03-29-2025 Commemt1 Glu2: Cleaned Meter Normal [facility] Comment on above: Result Comment: PERF ORMED BY:[address] [place], [place] [phone] MEDICAL JULIAN PADILLA M.D. Performed By: #### G LULS ####Point of Care testing, Glucose [Mass/Vol] 326 mg/dL Normal [facility] Comment on above: Result Comment: [facility] Glucose Reference Range is dependent on time and content of last meal. Glucose of more than 200 mg/dL in a nonstressed, ambulatory subject supports the diagnosis of Diabetes Mellitus. Performed By: #### G LULS ####Point of Care testing, Glucose [Mass/Vol] 258 mg/dL Normal [facility] Comment on above: Result Comment: [facility] Glucose Reference Range is dependent on time and content of last meal. Glucose of more than 200 mg/dL in a nonstressed, ambulatory subject supports the diagnosis of Diabetes Mellitus.PERFORMED BY:[address] [place], [place] [phone] MEDICAL JULIAN PADILLA M.D. Performed By: #### G LULS ####Point of Care testing, Glucose [Mass/Vol] 145 mg/dL Normal [facility] Comment on above: Result Comment: [facility] Glucose Reference Range is dependent on time and content of last meal. Glucose of more than 200 mg/dL in a nonstressed, ambulatory subject supports the diagnosis of Diabetes Mellitus.PERFORMED BY:[address] [place], [place] [phone] MEDICAL JULIAN PADILLA M.D. Performed By: #### G LULS ####Point of Care testing, Glucose [Mass/Vol] 80 mg/dL Normal [facility] Comment on above: Result Comment: [facility] Glucose Reference Range is dependent on time and content of last meal. Glucose of more than 200 mg/dL in a nonstressed, ambulatory subject supports the diagnosis of Diabetes Mellitus.PERFORMED BY:[address] [place], [place] [phone] MEDICAL JULIAN PADILLA M.D. Performed By: #### G LULS ####Point of Care testing, Glucose [Mass/Vol] 66 mg/dL Normal [facility] Comment on above: Result Comment: [facility] Glucose Reference Range is dependent on time and content of last meal. Glucose of more than 200 mg/dL in a nonstressed, ambulatory subject supports the diagnosis of Diabetes Mellitus.PERFORMED BY:[address] [place], [place] [phone] MEDICAL JULIAN PADILLA M.D. Performed By: #### G LULS ####Point of Care testing, Respiratory (Upper) Panel, P CRon 03-29-2025 Respiratory (Upper) Panel, PCR Normal [facility] Comment on above: Performed By: #### B IOFIRECOVNOTDE, RESP PANEL UPP. ####[address] [address] [facility] Glucose Poct Glucometerson 0 03-28-2025 Glucose [Mass/Vol] 293 mg/dL Normal [facility] Comment on above: Result Comment: [facility] Glucose Reference Range is dependent on time and content of last meal. Glucose of more than 200 mg/dL in a nonstressed, ambulatory subject supports the diagnosis of Diabetes Mellitus.PERFORMED BY:[address] [place], [place] [phone] MEDICAL JULIAN PADILLA M.D. Performed By: #### G LULS ####Point of Care testing, Glucose [Mass/Vol] 277 mg/dL Normal [facility] Comment on above: Result Comment: [facility] Glucose Reference Range is dependent on time and content of last meal. Glucose of more than 200 mg/dL in a nonstressed, ambulatory subject supports the diagnosis of Diabetes Mellitus.PERFORMED BY:[address] [place], [place] [phone] MEDICAL JULIAN PADILLA M.D. Performed By: #### G LULS ####Point of Care testing, Glucose [Mass/Vol] 209 mg/dL Normal [facility] Comment on above: Result Comment: [facility] Glucose Reference Range is dependent on time and content of last meal. Glucose of more than 200 mg/dL in a nonstressed, ambulatory subject supports the diagnosis of Diabetes Mellitus.PERFORMED BY:[address] [place], [place] [phone] CHRISTOPHER PADILLA M.D. Performed By: #### G LULS ####Point of Care testing, Glucose [Mass/Vol] 92 mg/dL Normal [facility] Comment on above: Result Comment: [facility] Glucose Reference Range is dependent on time and content of last meal. Glucose of more than 200 mg/dL in a nonstressed, ambulatory subject supports the diagnosis of Diabetes Mellitus.PERFORMED BY:[address] [place], [place] [phone] CHRISTOPHER PADILLA M.D. Performed By: #### G LULS ####Point of Care testing, XR chest 1V portableon 03-28 XR chest 1V portable Normal [facility] Basic Metabolic Panelon 03-14 Anion gap [Moles/Vol] 9.5 mmol/L Normal 6.0-15.0 [facility] Comment on above: Performed By: #### B MP ####[address] [address] [facility] Calcium [Mass/Vol] 8.4 mg/dL Low 8.6-10.3 [facility] Comment on above: Performed By: #### B MP ####[address] [address] [facility] Chloride [Moles/Vol] 102 mmol/L Normal 98-107 [facility] Comment on above: Performed By: #### B MP ####[address] [address] [facility] CO2 [Moles/Vol] 30.8 mmol/L Normal 21.0-31.0 [facility] Comment on above: Performed By: #### B MP ####[address] [address] [facility] Creatinine [Mass/Vol] 1.87 mg/dL High 0.60-1.20 [facility] Comment on above: Performed By: #### B MP ####[address] [address] [facility] Creatinine Clr Calc Pharmacy 22.64 Normal [facility] Comment on above: Result Comment: PERF ORMED BY:[place] [place], [place] [phone] MEDICAL JULIAN PADILLA M.D. Performed By: #### B MP ####[address] [address] [facility] GFR/1.73 sq M.predicted MDRD (S/P/Bld) [Vol rate/Area] 27.039 mL/min/{1.73_m2} Normal [facility] Comment on above: Performed By: #### B MP ####[address] [address] [facility] Glucose [Mass/Vol] 67 mg/dL Low 70-100 [facility] Comment on above: Result Comment: [place] Glucose Reference Range is dependent on time and content of last meal. Glucose of more than 200 mg/dL in a nonstressed, ambulatory subject supports the diagnosis of Diabetes Mellitus. ADA recommended reference range Performed By: #### B MP ####[address] [address] [place] [address] [facility] Potassium [Moles/Vol] 4.3 mmol/L Normal 3.5-5.1 [facility] Comment on above: Performed By: #### B MP ####[place] [id number] [facility] Sodium [Moles/Vol] 138 mmol/L Normal 136-145 [facility] Comment on above: Performed By: #### B MP ####[place] [id number] [facility] Urea nitrogen [Mass/Vol] 52 mg/dL High 7-25 [facility] Comment on above: Performed By: #### B MP ####[address] [address] [facility] Dipstick and Microscopicon 0 03-27-2025 Appearance (U) Cloudy Critically abnormal Clear [facility] Comment on above: Order Comment: Name Collection Type:: Clean-Voided Midstream Performed By: #### A DDONUAPLUS, CUU ####[address] [address] [facility] Bacteria,Urine Rare Normal None Seen [facility] Comment on above: Order Comment: Name Collection Type:: Clean-Voided Midstream Performed By: #### A DDONUAPLUS, CUU ####[address] [address] [place] [address] [place] Bilirubin,Urine Negative Normal Negative [facility] Comment on above: Order Comment: Name Collection Type:: Clean-Voided Midstream Performed By: #### A DDONUAPLUS, CUU ####[address] [address] [facility] Color (U) Light-Yellow Normal Yellow [facility] Comment on above: Order Comment: Name Collection Type:: Clean-Voided Midstream Performed By: #### A DDONUAPLUS, CUU ####[address] [address] [facility] Glucose Ql (U) Normal Normal Normal [facility] Comment on above: Order Comment: Name Collection Type:: Clean-Voided Midstream Performed By: #### A DDONUAPLUS, CUU ####[address] [address] [facility] Hyaline Casts,Urine None Normal 0-8 [facility] Comment on above: Order Comment: Name Collection Type:: Clean-Voided Midstream Performed By: #### A DDONUAPLUS, CUU ####[address] [address] [facility] Ketones Ql (U) Negative Normal Negative [facility] Comment on above: Order Comment: Name Collection Type:: Clean-Voided Midstream Performed By: #### A DDONUAPLUS, CUU ####[address] [address] [facility] Leukocyte esterase Test strip Ql (U) 4+ Normal Negative [facility] Comment on above: Order Comment: Name Collection Type:: Clean-Voided Midstream Performed By: #### A DDONUAPLUS, CUU ####[address] [address] [facility] Mucus,Urine Rare Normal [facility] Comment on above: Order Comment: Name Collection Type:: Clean-Voided Midstream Result Comment: PERF ORMED BY:[address] [place], [place] [phone] MEDICAL JULIAN PADILLA M.D. Performed By: #### A DDONUAPLUS, CUU ####[address] [address] [facility] Nitrite,Urine Negative Normal Negative [facility] Comment on above: Order Comment: Name Collection Type:: Clean-Voided Midstream Performed By: #### A DDONUAPLUS, CUU ####[place] [id number] [facility] Occult Blood,Urine 2+ Normal Negative [facility] Comment on above: Order Comment: Name Collection Type:: Clean-Voided Midstream Result Comment: PERF ORMED BY:[place] [address] [place], [place] [phone] MEDICAL JULIAN PADILLA M.D. Performed By: #### A DDONUAPLUS, CUU ####[place] [id number] [facility] pH (U) 5.5 [pH] Normal 5.0-9.0 [facility] Comment on above: Order Comment: Name Collection Type:: Clean-Voided Midstream Performed By: #### A DDONUAPLUS, CUU ####[address] Protein (U) [Mass/Vol] 70 mg/dL Normal Negative [facility] Comment on above: Order Comment: Name Collection Type:: Clean-Voided Midstream Performed By: #### A DDONUAPLUS, CUU ####[place] [id number] [facility] RBC,Urine 50-100 Normal 0-4 [facility] Comment on above: Order Comment: Name Collection Type:: Clean-Voided Midstream Performed By: #### A DDONUAPLUS, CUU ####[place] [id number] [facility] Specificy [place],Urine 1.016 Normal 1.001-1.030 [facility] Comment on above: Order Comment: Name Collection Type:: Clean-Voided Midstream Performed By: #### A DDONUAPLUS, CUU ####[place] [id number] [facility] Squamous Epithelial Cell,Urine 3-4 Normal 0-2 [facility] Comment on above: Order Comment: Name Collection Type:: Clean-Voided Midstream Performed By: #### A DDONUAPLUS, CUU ####[place] [id number] [facility] Urobilinogen,Urine Normal Normal Normal [facility] Comment on above: Order Comment: Name Collection Type:: Clean-Voided Midstream Performed By: #### A DDONUAPLUS, CUU ####[place] [address] [place] [id number] [facility] WBC CLUMP, Urine Rare Normal None Seen [facility] Comment on above: Order Comment: Name Collection Type:: Clean-Voided Midstream Performed By: #### A DDONUAPLUS, CUU ####[address] WBC,Urine 20-49 Normal 0-4 [facility] Comment on above: Order Comment: Name Collection Type:: Clean-Voided Midstream Performed By: #### A DDONUAPLUS, CUU ####[address] Glucose Poct Glucometerson 0 03-27-2025 Glucose [Mass/Vol] 333 mg/dL Normal [facility] Comment on above: Result Comment: [facility] Glucose Reference Range is dependent on time and content of last meal. Glucose of more than 200 mg/dL in a nonstressed, ambulatory subject supports the diagnosis of Diabetes Mellitus.PERFORMED BY:[address] [place], [place] [phone] MEDICAL JULIAN PADILLA M.D. Performed By: #### G LULS ####Point of Care testing, Glucose [Mass/Vol] 286 mg/dL Normal [facility] Comment on above: Result Comment: [facility] Glucose Reference Range is dependent on time and content of last meal. Glucose of more than 200 mg/dL in a nonstressed, ambulatory subject supports the diagnosis of Diabetes Mellitus.PERFORMED BY:[address] [place], [place] [phone] CHRISTOPHER PADILLA M.D. Performed By: #### G LULS ####Point of Care testing, Commemt1 Glu2: Cleaned Meter Normal [facility] Comment on above: Result Comment: PERF ORMED BY:[address] [place] [address] [place], [place] [phone] MEDICAL DIRECTORALINA PADILLA M.D. Performed By: #### G DALLIN ####Point of Care testing, Glucose [Mass/Vol] 248 mg/dL Normal [facility] Comment on above: Result Comment: [place] Glucose Reference Range is dependent on time and content of last meal. Glucose of more than 200 mg/dL in a nonstressed, ambulatory subject supports the diagnosis of Diabetes Mellitus. Performed By: #### G LULS ####Point of Care testing, Glucose [Mass/Vol] 97 mg/dL Normal [facility] Comment on above: Result Comment: [place] Glucose Reference Range is dependent on time and content of last meal. Glucose of more than 200 mg/dL in a nonstressed, ambulatory subject supports the diagnosis of Diabetes Mellitus.PERFORMED BY:[address] [place], [place] [phone] MEDICAL JULIAN PADILLA M.D. Performed By: #### G DALLIN ####Point of Care testing, Urine Cultureon 03-27-2025 Bacteria identified Cx Nom (U) Normal [facility] Comment on above: Performed By: #### A MARILEE MOOREU ####[address] [address] [facility] Basic Metabolic Panelon 03-14 Anion gap [Moles/Vol] 13.4 mmol/L Normal 6.0-15.0 [facility] Comment on above: Performed By: #### C BC, BMP ####[address] [address] [facility] Calcium [Mass/Vol] 8.4 mg/dL Low 8.6-10.3 [facility] Comment on above: Performed By: #### C BC, BMP ####[address] [address] [facility] Chloride [Moles/Vol] 100 mmol/L Normal 98-107 [facility] Comment on above: Performed By: #### C BC, BMP ####[place] [id number] [facility] CO2 [Moles/Vol] 25.2 mmol/L Normal 21.0-31.0 [facility] Comment on above: Performed By: #### C BC, BMP ####[place] [id number] [facility] Creatinine [Mass/Vol] 2.09 mg/dL High 0.60-1.20 [facility] Comment on above: Performed By: #### C BC, BMP ####[place] [id number] [facility] Creatinine Clr Calc Pharmacy 19.28 Normal [facility] Comment on above: Result Comment: PERF ORMED BY:[address] [place], [place] [phone] MEDICAL DIRECTORALINA PADILLA M.D. Performed By: #### C NANCY, BMP ####[address] GFR/1.73 sq M.predicted MDRD (S/P/Bld) [Vol rate/Area] 23.661 mL/min/{1.73_m2} Normal [facility] Comment on above: Performed By: #### C NANCY, BMP ####[place] [id number] [facility] Glucose [Mass/Vol] 131 mg/dL High 70-100 [facility] Comment on above: Result Comment: [place] Glucose Reference Range is dependent on time and content of last meal. Glucose of more than 200 mg/dL in a nonstressed, ambulatory subject supports the diagnosis of Diabetes Mellitus. ADA recommended reference range Performed By: #### C BC, BMP ####[place] [place] [id number] [facility] Potassium [Moles/Vol] 4.6 mmol/L Normal 3.5-5.1 [facility] Comment on above: Performed By: #### C BC, BMP ####[place] [id number] [facility] Sodium [Moles/Vol] 134 mmol/L Low 136-145 [facility] Comment on above: Performed By: #### C BC, BMP ####[place] [id number] [facility] Urea nitrogen [Mass/Vol] 52 mg/dL High 7-25 [facility] Comment on above: Performed By: #### C BC, BMP ####[address] [address] [facility] Complete Blood Count Auto Di ffon 03-26-2025 Basophils (Bld) [#/Vol] 0.1 10*3/uL Normal 0.0-0.2 [facility] Comment on above: Result Comment: PERF ORMED BY:[address] [place], [place] [phone] MEDICAL DIRECTORALINA PADILLA M.D. Performed By: #### C BC, BMP ####[place] [id number] [facility] Basophils/100 WBC (Bld) 0.7 % Normal . [facility] Comment on above: Performed By: #### C BC, BMP ####[place] [id number] [facility] Eosinophils (Bld) [#/Vol] 0.3 10*3/uL Normal 0.0-0.45 [facility] Comment on above: Performed By: #### C BC, BMP ####[place] [id number] [facility] Eosinophils/100 WBC (Bld) 2.0 % Normal . [facility] Comment on above: Performed By: #### C BC, BMP ####[place] [id number] [facility] Erythrocyte distribution width (RBC) [Ratio] 15.7 % High 11.9-15.3 [facility] Comment on above: Performed By: #### C BC, BMP ####[place] [id number] [facility] Hematocrit (Bld) [Volume fraction] 31.8 % Low 34.0-46.4 [facility] Comment on above: Performed By: #### C BC, BMP ####[address] [address] [facility] Hemoglobin (Bld) [Mass/Vol] 10.3 g/dL Low 11.8-15.4 [facility] Comment on above: Performed By: #### C BC, BMP ####[place] [id number] [facility] Lymphocytes (Bld) [#/Vol] 1.9 10*3/uL Normal 1.00-4.8 [facility] Comment on above: Performed By: #### C BC, BMP ####[place] [id number] [facility] Lymphocytes/100 WBC (Bld) 14.7 % Normal . [facility] Comment on above: Performed By: #### C NANCY, BMP ####[place] [id number] [facility] MCH (RBC) [Entitic mass] 32.8 pg Normal 24.7-34.3 [facility] Comment on above: Performed By: #### C NANCY, BMP ####[place] [id number] [facility] MCV (RBC) [Entitic vol] 101.8 fL High 80-100 [facility] Comment on above: Performed By: #### C NANCY, BMP ####[place] [id number] [facility] Mean Corpuscular HGB Conc 32.3 g/dL Normal 32.0-35.0 [facility] Comment on above: Performed By: #### C BC, BMP ####[place] [id number] [facility] Monocytes (Bld) [#/Vol] 0.9 10*3/uL High 0.0-0.8 [facility] Comment on above: Performed By: #### C BC, BMP ####[place] [id number] [facility] Monocytes/100 WBC (Bld) 7.0 % Normal . [facility] Comment on above: Performed By: #### C BC, BMP ####[address] [address] [facility] Neutrophils (Bld) [#/Vol] 9.8 10*3/uL High 1.8-7.7 [facility] Comment on above: Performed By: #### C BC, BMP ####[address] [address] [facility] Neutrophils/100 WBC (Bld) 75.6 % Normal . [facility] Comment on above: Performed By: #### C NANCY, BMP ####[address] [address] [facility] NRBC% 0.2 /100{WBC} Normal 0-0.5 [facility] Comment on above: Performed By: #### C NANCY, BMP ####[address] [address] [facility] Platelet mean volume (Bld) [Entitic vol] 9.7 fL Normal 6.3-10.7 [facility] Comment on above: Performed By: #### C NANCY, BMP ####[address] [address] [place] Platelets (Bld) [#/Vol] 212 10*3/uL Normal 150-450 [facility] Comment on above: Performed By: #### C NANCY, BMP ####[address] [address] [facility] RBC (Bld) [#/Vol] 3.12 10*6/uL Low 3.60-5.00 [facility] Comment on above: Performed By: #### C NANCY, BMP ####[address] [address] [place] WBC (Bld) [#/Vol] 13.0 10*3/uL High 3.8-11.6 [facility] Comment on above: Performed By: #### C NANCY, BMP ####[address] [address] [facility] White Blood Count 13.0 [CFU]/mL High 3.8-11.6 [facility] Comment on above: Performed By: #### C , BMP ####[address] [address] [facility] Glucose Poct Glucometerson 0 03-26-2025 Glucose [Mass/Vol] 396 mg/dL Normal [facility] Comment on above: Result Comment: [place] om Glucose Reference Range is dependent on time and content of last meal. Glucose of more than 200 mg/dL in a nonstressed, ambulatory subject supports the diagnosis of Diabetes Mellitus.PERFORMED BY:[address] [place], [place] [phone] MEDICAL JULIAN PADILLA M.D. Performed By: #### G LULS ####Point of Care testing, Commemt1 Glu2: Cleaned Meter Normal [facility] Comment on above: Result Comment: PERF ORMED BY:[address] [place], [place] [phone] MEDICAL JULIAN PADILLA M.D. Performed By: #### G LULS ####Point of Care testing, Glucose [Mass/Vol] 352 mg/dL Normal [facility] Comment on above: Result Comment: [place] om Glucose Reference Range is dependent on time and content of last meal. Glucose of more than 200 mg/dL in a nonstressed, ambulatory subject supports the diagnosis of Diabetes Mellitus. Performed By: #### G LULS ####Point of Care testing, Commemt1 Glu2: Cleaned Meter Normal [facility] Comment on above: Result Comment: PERF ORMED BY:[address] [place], [place] [phone] MEDICAL JULIAN PADILLA M.D. Performed By: #### G LULS ####Point of Care testing, Glucose [Mass/Vol] 148 mg/dL Normal [facility] Comment on above: Result Comment: [place] om Glucose Reference Range is dependent on time and content of last meal. Glucose of more than 200 mg/dL in a nonstressed, ambulatory subject supports the diagnosis of Diabetes Mellitus. Performed By: #### G LULS ####Point of Care testing, Glucose [Mass/Vol] 92 mg/dL Normal [facility] Comment on above: Result Comment: [place] Glucose Reference Range is dependent on time and content of last meal. Glucose of more than 200 mg/dL in a nonstressed, ambulatory subject supports the diagnosis of Diabetes Mellitus.PERFORMED BY:[address] [place]aul[place], [place] [phone] CHRISTOPHER PADILLA M.D. Performed By: #### G LULS ####Point of Care testing, Glucose Poct Glucometerson 0 03-25-2025 Glucose [Mass/Vol] 364 mg/dL Normal [facility] Comment on above: Result Comment: [facility] Glucose Reference Range is dependent on time and content of last meal. Glucose of more than 200 mg/dL in a nonstressed, ambulatory subject supports the diagnosis of Diabetes Mellitus.PERFORMED BY:[address] TEAYaelRHETTMARQUITA, [place] [phone] CHRISTOPHER PADILLA M.D. Performed By: #### G LULS ####Point of Care testing, Glucose [Mass/Vol] 248 mg/dL Normal [facility] Comment on above: Result Comment: [place] Glucose Reference Range is dependent on time and content of last meal. Glucose of more than 200 mg/dL in a nonstressed, ambulatory subject supports the diagnosis of Diabetes Mellitus.PERFORMED BY:[place] [address] [address] [place], [place] [phone] CHRISTOPHER PADILLA M.D. Performed By: #### G LULS ####Point of Care testing, Commemt1 Glu2: Cleaned Meter Normal [facility] Comment on above: Result Comment: PERF ORMED BY:[place] [address] [address] [place], [place] [phone] CHRISTOPHER PADILLA M.D. Performed By: #### G LULS ####Point of Care testing, Glucose [Mass/Vol] 176 mg/dL Normal [facility] Comment on above: Result Comment: [place] Glucose Reference Range is dependent on time and content of last meal. Glucose of more than 200 mg/dL in a nonstressed, ambulatory subject supports the diagnosis of Diabetes Mellitus. Performed By: #### G LULS ####Point of Care testing, Commemt1 Glu2: Cleaned Meter Normal [facility] Comment on above: Result Comment: PERF ORMED BY:[address] [place], [place] [phone] MEDICAL JULIAN PADILLA M.D. Performed By: #### G LULS ####Point of Care testing, Glucose [Mass/Vol] 153 mg/dL Normal [facility] Comment on above: Result Comment: [place] om Glucose Reference Range is dependent on time and content of last meal. Glucose of more than 200 mg/dL in a nonstressed, ambulatory subject supports the diagnosis of Diabetes Mellitus. Performed By: #### G LULS ####Point of Care testing, Glucose Poct Glucometerson 0 03-24-2025 Commemt1 Glu2: Cleaned Meter Normal [facility] Comment on above: Result Comment: PERF ORMED BY:[address], [place] [phone] MEDICAL JULIAN PADILLA M.D. Performed By: #### G LULS ####Point of Care testing, Glucose [Mass/Vol] 294 mg/dL Normal [facility] Comment on above: Result Comment: [place] om Glucose Reference Range is dependent on time and content of last meal. Glucose of more than 200 mg/dL in a nonstressed, ambulatory subject supports the diagnosis of Diabetes Mellitus. Performed By: #### G LULS ####Point of Care testing, Commemt1 Normal [facility] Comment on above: Result Comment: Glu2 : WILL NOTIFY DR/LIANE Performed By: #### G LULS ####Point of Care testing, Commemt2 Cleaned Meter Normal [facility] Comment on above: Result Comment: PERF ORMED BY:[address] [place]TM[place], [place] [phone] CHRISTOPHER PADILLA M.D. Performed By: #### G LULS ####Point of Care testing, Glucose [Mass/Vol] 210 mg/dL Normal [facility] Comment on above: Result Comment: [place] om Glucose Reference Range is dependent on time and content of last meal. Glucose of more than 200 mg/dL in a nonstressed, ambulatory subject supports the diagnosis of Diabetes Mellitus. Performed By: #### G LULS ####Point of Care testing, Glucose [Mass/Vol] 172 mg/dL Normal [facility] Comment on above: Result Comment: [place] om Glucose Reference Range is dependent on time and content of last meal. Glucose of more than 200 mg/dL in a nonstressed, ambulatory subject supports the diagnosis of Diabetes Mellitus.PERFORMED BY:[address] [place], [place] [phone] MEDICAL DIRECTORALINA PADILLA M.D. Performed By: #### G LULS ####Point of Care testing, Glucose [Mass/Vol] 136 mg/dL Normal [facility] Comment on above: Result Comment: [place] om Glucose Reference Range is dependent on time and content of last meal. Glucose of more than 200 mg/dL in a nonstressed, ambulatory subject supports the diagnosis of Diabetes Mellitus.PERFORMED BY:[address] [place], [place] [phone] MEDICAL JULIAN PADILLA M.D. Performed By: #### G LULS ####Point of Care testing, Complete Blood Count Auto Di on 03-23-2025 Basophils (Bld) [#/Vol] 0.0 10*3/uL Normal 0.0-0.2 [facility] Comment on above: Result Comment: PERF ORMED BY:[address] [place], [place] [phone] MEDICAL JULIAN PADILLA M.D. Performed By: #### C BC, CMP, PAB ####[address] [address] [facility] Basophils/100 WBC (Bld) 0.3 % Normal . [facility] Comment on above: Performed By: #### C BC, CMP, PAB ####[address] Eosinophils (Bld) [#/Vol] 0.0 10*3/uL Normal 0.0-0.45 [facility] Comment on above: Performed By: #### C BC, CMP, PAB ####[address] Eosinophils/100 WBC (Bld) 0.0 % Normal . [facility] Comment on above: Performed By: #### C BC, CMP, PAB ####[address] Erythrocyte distribution width (RBC) [Ratio] 15.9 % High 11.9-15.3 [facility] Comment on above: Performed By: #### C BC, CMP, PAB ####[address] Hematocrit (Bld) [Volume fraction] 29.4 % Low 34.0-46.4 [facility] Comment on above: Performed By: #### C BC, CMP, PAB ####[address] Hemoglobin (Bld) [Mass/Vol] 9.5 g/dL Low 11.8-15.4 [facility] Comment on above: Performed By: #### C BC, CMP, PAB ####[address] Lymphocytes (Bld) [#/Vol] 1.4 10*3/uL Normal 1.00-4.8 [facility] Comment on above: Performed By: #### C BC, CMP, PAB ####[address] Lymphocytes/100 WBC (Bld) 10.5 % Normal . [facility] Comment on above: Performed By: #### C BC, CMP, PAB ####[address] MCH (RBC) [Entitic mass] 32.4 pg Normal 24.7-34.3 [facility] Comment on above: Performed By: #### C BC, CMP, PAB ####[address] MCV (RBC) [Entitic vol] 100.3 fL High 80-100 [facility] Comment on above: Performed By: #### C BC, CMP, PAB ####[address] Mean Corpuscular HGB Conc 32.3 g/dL Normal 32.0-35.0 [facility] Comment on above: Performed By: #### C BC CMP, PAB ####[address] Monocytes (Bld) [#/Vol] 1.1 10*3/uL High 0.0-0.8 [facility] Comment on above: Performed By: #### C BC CMP, PAB ####[address] Monocytes/100 WBC (Bld) 8.0 % Normal . [facility] Comment on above: Performed By: #### C NANCY CMP, PAB ####[address] Neutrophils (Bld) [#/Vol] 10.9 10*3/uL High 1.8-7.7 [facility] Comment on above: Performed By: #### C BC, CMP, PAB ####[address] Neutrophils/100 WBC (Bld) 81.2 % Normal . [facility] Comment on above: Performed By: #### C BC, CMP, PAB ####[address] NRBC% 0.1 /100{WBC} Normal 0-0.5 [facility] Comment on above: Performed By: #### C BC, CMP, PAB ####[address] Platelet mean volume (Bld) [Entitic vol] 10.1 fL Normal 6.3-10.7 [facility] Comment on above: Performed By: #### C BC, CMP, PAB ####[address] Platelets (Bld) [#/Vol] 171 10*3/uL Normal 150-450 [facility] Comment on above: Performed By: #### C BC, CMP, PAB ####[address] RBC (Bld) [#/Vol] 2.93 10*6/uL Low 3.60-5.00 [facility] Comment on above: Performed By: #### C BC, CMP, PAB ####[address] WBC (Bld) [#/Vol] 13.4 10*3/uL High 3.8-11.6 [facility] Comment on above: Performed By: #### C BC, CMP, PAB ####[address] White Blood Count 13.4 [CFU]/mL High 3.8-11.6 [facility] Comment on above: Performed By: #### C BC, CMP, PAB ####[address] Comprehensive Metabolic Pane ben 03-23-2025 Albumin [Mass/Vol] 3.2 g/dL Low 3.5-5.7 [facility] Comment on above: Performed By: #### C BC, CMP, PAB ####[place] [id number] [facility] Albumin/Globulin [Mass ratio] 1.1 {ratio} Normal [facility] Comment on above: Performed By: #### C BC, CMP, PAB ####[address] ALP [Catalytic activity/Vol] 41 U/L Normal 34-104 [facility] Comment on above: Performed By: #### C BC, CMP, PAB ####[place] [place] [address] [facility] ALT [Catalytic activity/Vol] U/L Low 7-52 [facility] Comment on above: Performed By: #### C BC, CMP, PAB ####[address] [address] [facility] Anion gap [Moles/Vol] 12.2 mmol/L Normal 6.0-15.0 [facility] Comment on above: Performed By: #### C BC, CMP, PAB ####[place] [id number] [facility] AST [Catalytic activity/Vol] 15 U/L Normal 13-39 [facility] Comment on above: Performed By: #### C BC, CMP, PAB ####[place] [id number] [facility] Bilirubin [Mass/Vol] 0.2 mg/dL Low 0.3-1.0 [facility] Comment on above: Performed By: #### C BC, CMP, PAB ####[place] [id number] [facility] Calcium [Mass/Vol] 8.5 mg/dL Low 8.6-10.3 [facility] Comment on above: Performed By: #### C BC, CMP, PAB ####[place] [id number] [facility] Chloride [Moles/Vol] 101 mmol/L Normal 98-107 [facility] Comment on above: Performed By: #### C BC, CMP, PAB ####[place] [phone] [facility] CO2 [Moles/Vol] 27.3 mmol/L Normal 21.0-31.0 [facility] Comment on above: Performed By: #### C BC, CMP, PAB ####[place] [id number] [facility] Creatinine [Mass/Vol] 1.89 mg/dL High 0.60-1.20 [facility] Comment on above: Performed By: #### C BC, CMP, PAB ####[place] [id number] Creatinine Clr Calc Pharmacy 21.32 Normal [facility] Comment on above: Performed By: #### C RADHA CRUZ, PAB ####[place] [phone] [facility] GFR/1.73 sq M.predicted MDRD (S/P/Bld) [Vol rate/Area] 26.696 mL/min/{1.73_m2} Normal [facility] Comment on above: Performed By: #### C RADHA CRUZ, PAB ####[address] Globulin (S) [Mass/Vol] 2.9 g/dL Normal [facility] Comment on above: Performed By: #### C RADHA CRUZ, PAB ####[address] Glucose [Mass/Vol] 163 mg/dL High 70-100 [facility] Comment on above: Result Comment: [facility] Glucose Reference Range is dependent on time and content of last meal. Glucose of more than 200 mg/dL in a nonstressed, ambulatory subject supports the diagnosis of Diabetes Mellitus. ADA recommended reference range Performed By: #### C RADHA CRUZ, PAB ####[address] Potassium [Moles/Vol] 4.5 mmol/L Normal 3.5-5.1 [facility] Comment on above: Performed By: #### C RADHA CRUZ, PAB ####[address] Protein [Mass/Vol] 6.1 g/dL Low 6.4-8.9 [facility] Comment on above: Performed By: #### C RADHA CRUZ, PAB ####[place] [id number] [facility] Sodium [Moles/Vol] 136 mmol/L Normal 136-145 [facility] Comment on above: Performed By: #### C RADHA CRUZ, PAB ####[address] [place] [address] [facility] Urea nitrogen [Mass/Vol] 45 mg/dL High 7-25 [facility] Comment on above: Performed By: #### C BC, CMP, PAB ####[facility] [place], [place] [id number] [facility] Glucose Poct Glucometerson 0 03-23-2025 Glucose [Mass/Vol] 322 mg/dL Normal [facility] Comment on above: Result Comment: [facility] Glucose Reference Range is dependent on time and content of last meal. Glucose of more than 200 mg/dL in a nonstressed, ambulatory subject supports the diagnosis of Diabetes Mellitus.PERFORMED BY:[address] [place], [place] [phone] MEDICAL JULIAN PADILLA M.D. Performed By: #### G LULS ####Point of Care testing, Glucose [Mass/Vol] 235 mg/dL Normal [facility] Comment on above: Result Comment: [facility] Glucose Reference Range is dependent on time and content of last meal. Glucose of more than 200 mg/dL in a nonstressed, ambulatory subject supports the diagnosis of Diabetes Mellitus.PERFORMED BY:[address] [place], [place] [phone] CHRISTOPHER PADILLA M.D. Performed By: #### G LULS ####Point of Care testing, Glucose [Mass/Vol] 232 mg/dL Normal [facility] Comment on above: Result Comment: [facility] Glucose Reference Range is dependent on time and content of last meal. Glucose of more than 200 mg/dL in a nonstressed, ambulatory subject supports the diagnosis of Diabetes Mellitus.PERFORMED BY:[address] [place], [place] [phone] MEDICAL JULIAN PADILLA M.D. Performed By: #### G LULS ####Point of Care testing, Glucose [Mass/Vol] 161 mg/dL Normal [facility] Comment on above: Result Comment: [facility] Glucose Reference Range is dependent on time and content of last meal. Glucose of more than 200 mg/dL in a nonstressed, ambulatory subject supports the diagnosis of Diabetes Mellitus.PERFORMED BY:[place] [address] [address] [place], [place] [phone] MEDICAL DIRECTORALINA PADILLA M.D. Performed By: #### G LUCRISTI ####Point of Care testing, Prealbuminon 03-23-2025 Prealbumin [Mass/Vol] 16.6 mg/dL Low 17.0-34.0 [facility] Comment on above: Result Comment: PERF ORMED BY:[place] [address] [address] [place], [place] [phone] MEDICAL DIRECTORALINA PADILLA M.D. Performed By: #### C BC, CMP, PAB ####[place] [phone] [facility] Basic Metabolic Panelon Anion gap [Moles/Vol] 12.3 mmol/L Normal 6.0-15.0 [facility] Comment on above: Performed By: #### B MP, CBC ####[address] [address] [facility] Calcium [Mass/Vol] 8.1 mg/dL Low 8.6-10.3 [facility] Comment on above: Performed By: #### B MP, CBC ####[address] [address] [facility] Chloride [Moles/Vol] 96 mmol/L Low 98-107 [facility] Comment on above: Performed By: #### B MP, CBC ####[address] [address] [facility] CO2 [Moles/Vol] 28.4 mmol/L Normal 21.0-31.0 [facility] Comment on above: Performed By: #### B MP, CBC ####[place] [id number] [facility] Creatinine [Mass/Vol] 1.89 mg/dL High 0.60-1.20 [facility] Comment on above: Performed By: #### B MP, CBC ####[place] [address] [place] [id number] [facility] Creatinine Clr Calc Pharmacy 21.33 Normal [facility] Comment on above: Result Comment: PERF ORMED BY:[address] [place], [place] [phone] MEDICAL JULIAN PADILLA M.D. Performed By: #### B MP, CBC ####[place] [id number] [place] GFR/1.73 sq M.predicted MDRD (S/P/Bld) [Vol rate/Area] 26.696 mL/min/{1.73_m2} Normal [facility] Comment on above: Performed By: #### B MP, CBC ####[place] [id number] [facility] Glucose [Mass/Vol] 374 mg/dL High 70-100 [facility] Comment on above: Result Comment: [place] Glucose Reference Range is dependent on time and content of last meal. Glucose of more than 200 mg/dL in a nonstressed, ambulatory subject supports the diagnosis of Diabetes Mellitus. ADA recommended reference range Performed By: #### B MP, CBC ####[place] [id number] [facility] Potassium [Moles/Vol] 4.7 mmol/L Normal 3.5-5.1 [facility] Comment on above: Performed By: #### B MP, CBC ####[place] [id number] [facility] Sodium [Moles/Vol] 132 mmol/L Low 136-145 [facility] Comment on above: Performed By: #### B MP, CBC ####[place] [id number] [facility] Urea nitrogen [Mass/Vol] 40 mg/dL High 7-25 [facility] Comment on above: Performed By: #### B MP, CBC ####[place] [id number] [facility] Complete Blood Count Auto Di ffon 03-22-2025 Basophils (Bld) [#/Vol] 0.0 10*3/uL Normal 0.0-0.2 [facility] Comment on above: Result Comment: PERF ORMED BY:[address] [place], [place] [phone] MEDICAL DIRECTORALINA PADILLA M.D. Performed By: #### B MP, CBC ####[place] [id number] [facility] Basophils/100 WBC (Bld) 0.2 % Normal . [facility] Comment on above: Performed By: #### B MP, CBC ####[place] [id number] [facility] Eosinophils (Bld) [#/Vol] 0.0 10*3/uL Normal 0.0-0.45 [facility] Comment on above: Performed By: #### B MP, CBC ####[address] Eosinophils/100 WBC (Bld) 0.0 % Normal . [facility] Comment on above: Performed By: #### B MP, CBC ####[address] Erythrocyte distribution width (RBC) [Ratio] 15.3 % Normal 11.9-15.3 [facility] Comment on above: Performed By: #### B MP, CBC ####[address] Hematocrit (Bld) [Volume fraction] 31.2 % Low 34.0-46.4 [facility] Comment on above: Performed By: #### B MP, CBC ####[place] [id number] [facility] Hemoglobin (Bld) [Mass/Vol] 10.2 g/dL Low 11.8-15.4 [facility] Comment on above: Performed By: #### B MP, CBC ####[address] Lymphocytes (Bld) [#/Vol] 1.1 10*3/uL Normal 1.00-4.8 [facility] Comment on above: Performed By: #### B MP, CBC ####[address] Lymphocytes/100 WBC (Bld) 9.2 % Normal . [facility] Comment on above: Performed By: #### B MP, CBC ####[place] [id number] [facility] MCH (RBC) [Entitic mass] 32.8 pg Normal 24.7-34.3 [facility] Comment on above: Performed By: #### B MP, CBC ####[address] MCV (RBC) [Entitic vol] 100.3 fL High 80-100 [facility] Comment on above: Performed By: #### B MP, CBC ####[address] Mean Corpuscular HGB Conc 32.7 g/dL Normal 32.0-35.0 [facility] Comment on above: Performed By: #### B MP, CBC ####[address] Monocytes (Bld) [#/Vol] 0.8 10*3/uL Normal 0.0-0.8 [facility] Comment on above: Performed By: #### B MP, CBC ####[address] Monocytes/100 WBC (Bld) 7.1 % Normal . [facility] Comment on above: Performed By: #### B MP, CBC ####[address] Neutrophils (Bld) [#/Vol] 9.8 10*3/uL High 1.8-7.7 [facility] Comment on above: Performed By: #### B MP, CBC ####[address] Neutrophils/100 WBC (Bld) 83.5 % Normal . [facility] Comment on above: Performed By: #### B MP, CBC ####[place] [id number] [facility] NRBC% 0.1 /100{WBC} Normal 0-0.5 [facility] Comment on above: Performed By: #### B MP, CBC ####[place] [id number] [facility] Platelet mean volume (Bld) [Entitic vol] 9.5 fL Normal 6.3-10.7 [facility] Comment on above: Performed By: #### B MP, CBC ####[place] [id number] [facility] Platelets (Bld) [#/Vol] 178 10*3/uL Normal 150-450 [facility] Comment on above: Performed By: #### B MP, CBC ####[address] RBC (Bld) [#/Vol] 3.11 10*6/uL Low 3.60-5.00 [facility] Comment on above: Performed By: #### B MP, CBC ####[address] WBC (Bld) [#/Vol] 11.8 10*3/uL High 3.8-11.6 [facility] Comment on above: Performed By: #### B MP, CBC ####[place] [id number] [facility] White Blood Count 11.8 [CFU]/mL High 3.8-11.6 [facility] Comment on above: Performed By: #### B MP, CBC ####[place] [id number] [facility] Glucose Poct Glucometerson 0 03-22-2025 Glucose [Mass/Vol] 311 mg/dL Normal [facility] Comment on above: Result Comment: [facility] Glucose Reference Range is dependent on time and content of last meal. Glucose of more than 200 mg/dL in a nonstressed, ambulatory subject supports the diagnosis of Diabetes Mellitus.PERFORMED BY:[address], [place] [phone] MEDICAL JULIAN PADILLA M.D. Performed By: #### G LULS ####Point of Care testing, Commemt1 Glu2: Cleaned Meter Normal [facility] Comment on above: Result Comment: PERF ORMED BY:[place] [address] [address] [place], [place] [phone] MEDICAL JULIAN PADILLA M.D. Performed By: #### G LULS ####Point of Care testing, Glucose [Mass/Vol] 377 mg/dL Normal [facility] Comment on above: Result Comment: [place] om Glucose Reference Range is dependent on time and content of last meal. Glucose of more than 200 mg/dL in a nonstressed, ambulatory subject supports the diagnosis of Diabetes Mellitus. Performed By: #### G LULS ####Point of Care testing, Commemt1 Normal [facility] Comment on above: Result Comment: Glu2 : WILL NOTIFY DR/RNPERFORMED BY:[address] [place], [place] [phone] MEDICAL JULIAN PADILLA M.D. Performed By: #### G LULS ####Point of Care testing, Glucose [Mass/Vol] 456 mg/dL Off scale high Th [facility] Comment on above: Result Comment: [place] om Glucose Reference Range is dependent on time and content of last meal. Glucose of more than 200 mg/dL in a nonstressed, ambulatory subject supports the diagnosis of Diabetes Mellitus. Performed By: #### G LULS ####Point of Care testing, Commemt1 Normal [facility] Comment on above: Result Comment: Glu2 : WILL NOTIFY DR/LIANE Performed By: #### G LULS ####Point of Care testing, Commemt2 Will Repeat Test Normal [facility] Comment on above: Result Comment: PERF ORMED BY:[address] [place], [place] [phone] MEDICAL DIRECTORMARIO S RANDY M.D. Performed By: #### G LULS ####Point of Care testing, Glucose [Mass/Vol] 419 mg/dL Off scale high Th [facility] Comment on above: Result Comment: [place] om Glucose Reference Range is dependent on time and content of last meal. Glucose of more than 200 mg/dL in a nonstressed, ambulatory subject supports the diagnosis of Diabetes Mellitus. Performed By: #### G LULS ####Point of Care testing, Glucose [Mass/Vol] 378 mg/dL Normal [facility] Comment on above: Result Comment: [place] om Glucose Reference Range is dependent on time and content of last meal. Glucose of more than 200 mg/dL in a nonstressed, ambulatory subject supports the diagnosis of Diabetes Mellitus.PERFORMED BY:[address] [place], [place] [phone] MEDICAL JULIAN PADILLA M.D. Performed By: #### G LULS ####Point of Care testing, Glucose [Mass/Vol] 340 mg/dL Normal [facility] Comment on above: Result Comment: [place] om Glucose Reference Range is dependent on time and content of last meal. Glucose of more than 200 mg/dL in a nonstressed, ambulatory subject supports the diagnosis of Diabetes Mellitus.PERFORMED BY:[place] [address] [address] [place], [place] [phone] MEDICAL JULIAN PADILLA M.D. Performed By: #### G LULS ####Point of Care testing, Glucose Poct Glucometerson 0 03-21-2025 Commemt1 Normal [facility] Comment on above: Result Comment: Glu2 : Result Not ConfirmedPERFORMED BY:[address] [place], [place] [phone] MEDICAL JULIAN PADILLA M.D. Performed By: #### G LULS ####Point of Care testing, Glucose [Mass/Vol] 442 mg/dL Off scale high Th [facility] Comment on above: Result Comment: [place] om Glucose Reference Range is dependent on time and content of last meal. Glucose of more than 200 mg/dL in a nonstressed, ambulatory subject supports the diagnosis of Diabetes Mellitus. Performed By: #### G LULS ####Point of Care testing, Commemt1 Normal [facility] Comment on above: Result Comment: Glu2 : Will Repeat TestPERFORMED BY:[place] [address] [address] [place], [place] [phone] MEDICAL JULIAN PADILLA M.D. Performed By: #### G LULS ####Point of Care testing, Glucose [Mass/Vol] 428 mg/dL Off scale high Th [facility] Comment on above: Result Comment: [place] om Glucose Reference Range is dependent on time and content of last meal. Glucose of more than 200 mg/dL in a nonstressed, ambulatory subject supports the diagnosis of Diabetes Mellitus. Performed By: #### G LULS ####Point of Care testing, Glucose [Mass/Vol] 188 mg/dL Normal [facility] Comment on above: Result Comment: [place] om Glucose Reference Range is dependent on time and content of last meal. Glucose of more than 200 mg/dL in a nonstressed, ambulatory subject supports the diagnosis of Diabetes Mellitus.PERFORMED BY:[address] [place], [place] [phone] MEDICAL JULIAN PADILLA M.D. Performed By: #### G LULS ####Point of Care testing, Glucose [Mass/Vol] 132 mg/dL Normal [facility] Comment on above: Result Comment: [place] om Glucose Reference Range is dependent on time and content of last meal. Glucose of more than 200 mg/dL in a nonstressed, ambulatory subject supports the diagnosis of Diabetes Mellitus.PERFORMED BY:[address] [place], [place] [phone] MEDICAL JULIAN PADILLA M.D. Performed By: #### G LULS ####Point of Care testing, Ben 03-21-2025 L Normal [facility] XR hip LT 1Von 03-21-2025 XR hip LT 1V Normal [facility] XR low pelvis w/LT x-table h ipon 09-08-2025 XR low pelvis w/LT x-table hip Normal [facility] X-ray reportOrdered By: Andrea Iraheta on 03-09-2025 Study report [facility] [address] [place] [address] XRay Report Signed Patient: Lexi Tatum MR#: [id number] : 1945 Acct:[id number] Age/Sex: 79 / F ADM Date: 5 Loc: [facility] Room: Type: [facility] Attending Dr: Da Lozano II, MD Copies to: Da Lozano MD~ Ordering Provider: Da Lozano MD Date of Service: 03/09/25 XR/XR hip LT min 2V(w/wo pelvis)*: M25.552 - Pain in left hip LEFT HIP - 2 views: 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 Additional degenerative changes seen involving the visualized lower lumbar spine and SI joints. No acute bony process is noted. XR/XR hip LT min 2V(w/wo pelvis)* IMPRESSION: MODERATE RIGHT AND SEVERE LEFT DEGENERATIVE CHANGES OF THE HIPS SIMILAR TO THE PRIOR STUDY.. Impression dictated by: Earnest Iraheta Jr., D.O. 03/09/2025 4:45 PM Dictation Location: [place] [address] Transcribed By: [facility] 03/09/251644 Dictated By: Earnest Iraheta Jr, DO 03/09/25 164 Signed By: 03/09/25 1645 [facility] XR hip LT min 2V(w/wo pelvis )*on 03-09-2025 XR hip LT min 2V(w/wo pelvis)* Normal [facility] Appearance of UrineOrdered B y: Da Lozano on 03-03-2025 Appearance (U) Turbid Abnormal Clear [facility] Comment on above: Order Comment: Name Collection Type:: Clean-Voided Midstream Performed By: #### C UU, ADDONUAPLUS ####[facility] [address] Bacteria [Presence] in Urine by AutomatedOrdered By: Da Lozano on 03-03-2025 Bacteria Auto Ql (U) 2+ [HPF] High None Seen [facility] Basic Metabolic Panelon 02-12 GFR/1.73 sq M.predicted MDRD (S/P/Bld) [Vol rate/Area] 25.714 mL/min/{1.73_m2} Normal [facility] Comment on above: Performed By: #### C NANCY, BMP ####[address]#### FRUC ####[facility] , Basophils [#/volume] in Bloo d by Automated countOrdered By: Da Lozano on 03-03-2025 Basophils (Bld) [#/Vol] 0.1 10*3/uL 0.0-0.2 [facility] Comment on above: Result Comment: PERF ORMED BY:[address] [place], [place] [phone] MEDICAL JULIAN PADILLA M.D. Performed By: #### Gail CRUZ, BMP ####[address]#### FRUC ####[facility] , Basophils/100 leukocytes in Blood by Automated countOrdered By: Da Lozano on 03-03-2025 Basophils/100 WBC (Bld) 0.8 % . [facility] Comment on above: Performed By: #### Gail CRUZ, BMP ####[address]#### FRUC ####[facility] , Bilirubin Test strip Ql (U)O rdered By: Da Lozano on 03-03-2025 Bilirubin Ql (U) Negative Negative [facility] Calcium [Mass/volume] in Ser um or PlasmaOrdered By: Da Lozano on 03-03-2025 Calcium [Mass/Vol] 9.6 mg/dL 8.6-10.3 [facility] Comment on above: Result Comment: PERF ORMED BY:[address] [place], [place] [phone] MEDICAL DIRECTORALINA PADILLA M.D. Performed By: #### C BC, BMP ####[address]#### FRUC ####[facility] , Carbon dioxide, total [Moles /volume] in Serum or PlasmaOrdered By: Da Lozano on 03-03-2025 CO2 [Moles/Vol] 32.6 mmol/L High 21.0-31.0 [facility] Comment on above: Performed By: #### C BC, BMP ####[address]#### FRUC ####[facility] , Chloride [Moles/volume] in [place] or PlasmaOrdered By: Da Lozano on 03-03-2025 Chloride [Moles/Vol] 100 mmol/L 98-107 [facility] Comment on above: Performed By: #### C BC, BMP ####[address]#### FRUC ####[facility] , Color of Urine by AutoOrdere d By: Da Lozano on 03-03-2025 Color (U) Light-orange Abnormal Yellow [facility] Comment on above: Order Comment: Name Collection Type:: Clean-Voided Midstream Performed By: #### C UU, ADDONUAPLUS ####[address] Complete Blood Count Auto Di ffon 03-03-2025 Mean Corpuscular HGB Conc 32.5 g/dL Normal 32.0-35.0 [facility] Comment on above: Performed By: #### C BC, BMP ####[address]#### FRUC ####[facility] , NRBC% 0.1 /100{WBC} Normal 0-0.5 [facility] Comment on above: Performed By: #### C BC, BMP ####[address]#### FRUC ####[facility] , White Blood Count 10.2 [CFU]/mL Normal 3.8-11.6 [facility] Comment on above: Performed By: #### C BC, BMP ####[address]#### FRUC ####[facility] , Creatinine [Mass/volume] in Serum or PlasmaOrdered By: aD Lozano on 03-03-2025 Creatinine [Mass/Vol] 1.95 mg/dL High 0.60-1.20 [facility] Comment on above: Performed By: #### C BC, BMP ####[address]#### FRUC ####[facility] , Dipstick and Microscopicon 0 03-03-2025 Bacteria,Urine 2+ [HPF] Normal None Seen [facility] Comment on above: Order Comment: Name Collection Type:: Clean-Voided Midstream Performed By: #### C UU, ADDONUAPLUS ####[address] Bilirubin,Urine Negative Normal Negative [facility] Comment on above: Order Comment: Name Collection Type:: Clean-Voided Midstream Performed By: #### C UU, ADDONUAPLUS ####[address] Glucose Ql (U) Normal Normal Normal [facility] Comment on above: Order Comment: Name Collection Type:: Clean-Voided Midstream Performed By: #### C UU, ADDONUAPLUS ####[address] [address] [facility] Hyaline Casts,Urine None Normal 0-8 [facility] Comment on above: Order Comment: Name Collection Type:: Clean-Voided Midstream Performed By: #### C UU, ADDONUAPLUS ####[place] [id number] [facility] Mucus,Urine Rare Normal [facility] Comment on above: Order Comment: Name Collection Type:: Clean-Voided Midstream Result Comment: PERF ORMED BY:[address] LIN[place], [place] [phone] MEDICAL JULIAN PADILLA M.D. Performed By: #### C UU, ADDONUAPLUS ####[address] Nitrite,Urine Negative Normal Negative [facility] Comment on above: Order Comment: Name Collection Type:: Clean-Voided Midstream Performed By: #### C UU, ADDONUAPLUS ####[place] [id number] [facility] Non-Squamous Epithelial Cell,U 3-4 Normal None Seen [facility] Comment on above: Order Comment: Name Collection Type:: Clean-Voided Midstream Performed By: #### C UU, ADDONUAPLUS ####[place] [id number] [facility] Occult Blood,Urine 1+ Normal Negative [facility] Comment on above: Order Comment: Name Collection Type:: Clean-Voided Midstream Result Comment: PERF ORMED BY:[address] [place], [place] [phone] MEDICAL JULIAN PADILLA M.D. Performed By: #### C UU, ADDONUAPLUS ####[place] [id number] [facility] RBC,Urine 10-19 Normal 0-4 [facility] Comment on above: Order Comment: Name Collection Type:: Clean-Voided Midstream Performed By: #### C UU, ADDONUAPLUS ####[address] Specificy [place],Urine 1.012 Normal 1.001-1.030 [facility] Comment on above: Order Comment: Name Collection Type:: Clean-Voided Midstream Performed By: #### C UU, ADDONUAPLUS ####[address] Squamous Epithelial Cell,Urine 10-19 Normal 0-2 [facility] Comment on above: Order Comment: Name Collection Type:: Clean-Voided Midstream Performed By: #### C UU, ADDONUAPLUS ####[address] Urobilinogen,Urine Normal Normal Normal [facility] Comment on above: Order Comment: Name Collection Type:: Clean-Voided Midstream Performed By: #### C UU, ADDONUAPLUS ####[address] WBC CLUMP, Urine Many Normal None Seen [facility] Comment on above: Order Comment: Name Collection Type:: Clean-Voided Midstream Performed By: #### C UU, ADDONUAPLUS ####[address] WBC,Urine Innumerable Normal 0-4 [facility] Comment on above: Order Comment: Name Collection Type:: Clean-Voided Midstream Performed By: #### C UU, ADDONUAPLUS ####[address] ECG 12 lead ECGon 03-03-2025 ECG 12 lead ECG Normal [facility] Eosinophils [#/volume] in Bl ood by Automated countOrdered By: Da Lozano on 03-03-2025 Eosinophils (Bld) [#/Vol] 0.3 10*3/uL 0.0-0.45 [facility] Comment on above: Performed By: #### C BC, BMP ####[address]#### FRUC ####[facility] , Eosinophils/100 leukocytes i n Blood by Automated countOrdered By: Da Lozano on 03-03-2025 Eosinophils/100 WBC (Bld) 2.8 % . [facility] Comment on above: Performed By: #### C NANCY, BMP ####[facility]#### FRUC ####[facility] , Epithelial cells.non-squamou s [#/area] in Urine sediment by Automated countOrdered By: Da Lozano on 03-03-2025 Epithelial cells.non-squamous Auto (Urine sed) [#/Area] 3-4 [HPF] High None Seen [facility] Epithelial cells.squamous [# /area] in Urine sediment by Automated countOrdered By: Da Lozano on 03-03-2025 Epithelial cells.squamous Auto (Urine sed) [#/Area] 10-19 [HPF] High 0-2 [facility] Erythrocyte distribution wid th [Ratio] by Automated countOrdered By: Da Lozano on 03-03-2025 Erythrocyte distribution width (RBC) [Ratio] 16.2 % High 11.9-15.3 [facility] Comment on above: Performed By: #### Gail CRUZ, BMP ####[place] [address] [address]#### FRUC ####[facility] , Erythrocytes [#/area] in Uri ne sediment by Automated countOrdered By: Da Lozano on 03-03-2025 RBC Auto (Urine sed) [#/Area] 10-19 [HPF] High 0-4 [facility] Erythrocytes [#/volume] in B lood by Automated countOrdered By: Da Lozano on 03-03-2025 RBC (Bld) [#/Vol] 3.92 10*6/uL 3.60-5.00 [facility] Comment on above: Performed By: #### C NANCY, BMP ####[place] [address] [place] [address] [place]#### FRUC ####[facility] , Fructosamineon 03-03-2025 Fructosamine 280 umol/L Normal 0-285 [facility] Comment on above: Result Comment: Publ ished reference interval for apparently healthy subjects between age 20 and 60 is 205 - 285 umol/L and in a poorly controlled diabetic population is 228 - 563 umol/L with a mean of 396 umol/L. Performed at: [facility] [address] [place], [place] [id number] [employer]: Mohan Talbert PhD, Phone: [phone] BY:[place] [id number] [place], [place] [phone] MEDICAL DIRECTORALINA PADILLA M.D. Performed By: #### C BC, BMP ####[facility] [place] [address]#### FRUC ####[facility] , Fructosamine [Moles/volume] in Serum or PlasmaOrdered By: Da Lozano on 03-03-2025 Fructosamine [Moles/Vol] 280 umol/L 0-285 [facility] Comment on above: Published reference interval for apparently healthysubjects between age 20 and 60 is 205 - 285 umol/L and in apoorly controlled diabetic population is 228 - 563 umol/Lwith a mean of 396 umol/L.Performed at: [facility] [id number] Director: Mohan Talbert PhD, Phone: [phone] Glomerular filtration rate [ Volume Rate/Area] in Serum, Plasma or Blood by CreatinineOrdered By: Da Lozano on 03-03-2025 Glomerular filtration rate [Volume Rate/Area] in Serum, Plasma or Blood by Creatinine 25.714 mL/Min [facility] Glucose [Mass/volume] in Ser um or PlasmaOrdered By: Da Lozano on 03-03-2025 Glucose [Mass/Vol] 125 mg/dL High 70-100 [facility] Comment on above: ADA recommended refe rence rangeRandom Glucose Reference Range is dependent on time and content of last meal. Glucose of more than 200 mg/dL in a nonstressed, ambulatory subject supports the diagnosis of Diabetes Mellitus. Result Comment: [facility] Glucose Reference Range is dependent on time and content of last meal. Glucose of more than 200 mg/dL in a nonstressed, ambulatory subject supports the diagnosis of Diabetes Mellitus. ADA recommended reference range Performed By: #### C BC, BMP ####[address] [place] [address] [place]#### FRUC ####[facility] , Glucose [Mass/volume] in Uri ne by Test stripOrdered By: Da Lozano on 03-03-2025 Glucose Test strip (U) [Mass/Vol] Normal mg/dL Normal [facility] Hematocrit [Volume Fraction] of Blood by Automated countOrdered By: Da Lozano on 03-03-2025 Hematocrit (Bld) [Volume fraction] 39.5 % 34.0-46.4 [facility] Comment on above: Performed By: #### C BC, BMP ####[place] [address] [place]#### FRUC ####[facility] , Hemoglobin Test strip Ql (U) Ordered By: Da Lozano on 03-03-2025 Hemoglobin Ql (U) 1+ High Negative [facility] Hemoglobin [Mass/volume] in BloodOrdered By: Da Lozano on 03-03-2025 Hemoglobin (Bld) [Mass/Vol] 12.8 g/dL 11.8-15.4 [facility] Comment on above: Performed By: #### C BC, BMP ####[place] [address] [place]#### FRUC ####[facility] , Hyaline casts [#/area] in Ur ine sediment by Automated countOrdered By: Da Lozano on 03-03-2025 Hyaline casts Auto (Urine sed) [#/Area] None [LPF] 0-8 [facility] Ketones [Presence] in Urine by Test stripOrdered By: Da Lozano on 03-03-2025 Ketones Ql (U) Negative Negative [facility] Comment on above: Order Comment: Name Collection Type:: Clean-Voided Midstream Performed By: #### C UU, ADDONUAPLUS ####[address] Leukocyte clumps [Presence] in Urine by AutomatedOrdered By: Da Lozano on 03-03-2025 Leukocyte clumps Auto Ql (U) Many [LPF] High None Seen [facility] Leukocyte esterase [Presence ] in Urine by Test stripOrdered By: Da Lozano on 03-03-2025 Leukocyte esterase Test strip Ql (U) 4+ High Negative [facility] Comment on above: Order Comment: Name Collection Type:: Clean-Voided Midstream Performed By: #### C UU, ADDONUAPLUS ####[address] Leukocytes [#/area] in Urine sediment by Automated countOrdered By: Da Lozano on 03-03-2025 WBC Auto (Urine sed) [#/Area] Innumerable [HPF] High 0-4 [facility] Leukocytes [#/volume] correc suzi for nucleated erythrocytes in Blood by Automated counOrdered By: Da Lozano on 03-03-2025 WBC corrected for nucl RBC Auto (Bld) [#/Vol] 10.2 10*3/uL 3.8-11.6 [facility] Leukocytes [#/volume] in Blo od by Automated countOrdered By: Da Lozano on 03-03-2025 WBC (Bld) [#/Vol] 10.2 10*3/uL 3.8-11.6 [facility] Comment on above: Performed By: #### C BC, BMP ####[address]#### FRUC ####[facility] , Lymphocytes [#/volume] in Bl ood by Automated countOrdered By: Da Lozano on 03-03-2025 Lymphocytes (Bld) [#/Vol] 2.1 10*3/uL 1.00-4.8 [facility] Comment on above: Performed By: #### C BC, BMP ####[place] [address] [place]#### FRUC ####[facility] , Lymphocytes/100 leukocytes i n Blood by Automated countOrdered By: Da Lozano on 03-03-2025 Lymphocytes/100 WBC (Bld) 21.0 % . [facility] Comment on above: Performed By: #### C BC, BMP ####[place] [address] [place]#### FRUC ####[facility] , MCH [Entitic mass] by Automa suzi countOrdered By: Da Lozano on 03-03-2025 MCH (RBC) [Entitic mass] 32.8 pg 24.7-34.3 [facility] Comment on above: Performed By: #### C BC, BMP ####[place] [address] [place]#### FRUC ####[facility] , MCHC Auto (RBC) [Mass/Vol]Or dered By: Da Lozano on 03-03-2025 MCHC (RBC) [Mass/Vol] 32.5 g/dL 32.0-35.0 [facility] MCV [Entitic volume] by Auto mated countOrdered By: Da Lozano on 03-03-2025 MCV (RBC) [Entitic vol] 100.8 fL High 80-100 [facility] Comment on above: Performed By: #### C BC, BMP ####[place] [address] [place]#### FRUC ####[facility] , Monocytes [#/volume] in Bloo d by Automated countOrdered By: Da Lozano on 03-03-2025 Monocytes (Bld) [#/Vol] 0.9 10*3/uL High 0.0-0.8 [facility] Comment on above: Performed By: #### C BC, BMP ####[address] [place] [address] [place]#### FRUC ####[facility] , Monocytes/100 leukocytes in Blood by Automated countOrdered By: Da Lozano on 03-03-2025 Monocytes/100 WBC (Bld) 8.4 % . [facility] Comment on above: Performed By: #### C BC, BMP ####[address] [place] [address] [place]#### FRUC ####[facility] , Mucus [Presence] in Urine by AutomatedOrdered By: Da Lozano on 03-03-2025 Mucus Auto Ql (U) Rare [LPF] [facility] Neutrophils [#/volume] in Bl ood by Automated countOrdered By: Da Lozano on 03-03-2025 Neutrophils (Bld) [#/Vol] 6.8 10*3/uL 1.8-7.7 [facility] Comment on above: Performed By: #### C BC, BMP ####[place] [address] [place]#### FRUC ####[facility] , Neutrophils/100 leukocytes i n Blood by Automated countOrdered By: Da Lozano on 03-03-2025 Neutrophils/100 WBC (Bld) 67.0 % . [facility] Comment on above: Performed By: #### C BC, BMP ####[place] [address] [place]#### FRUC ####[facility] , Nitrite Test strip Ql (U)Ord ered By: Da Lozano on 03-03-2025 Nitrite Ql (U) Negative Negative [facility] No Panel InformationOrdered By: Da Lozano on 03-03-2025 Pharmacy Creatinine Clearance (Chem N/A [facility] Nucleated erythrocytes [Pres ence] in Blood by Automated countOrdered By: Da Lozano on 03-03-2025 Nucleated RBC Auto Ql (Bld) 0.1 /100{WBC} 0-0.5 [facility] Platelet mean volume [Entiti c volume] in Blood by Automated countOrdered By: Da Lozano on 03-03-2025 Platelet mean volume (Bld) [Entitic vol] 9.2 fL 6.3-10.7 [facility] Comment on above: Performed By: #### C BC, BMP ####[place] [address] [place]#### FRUC ####[facility] , Platelets [#/volume] in Bloo d by Automated countOrdered By: Da Lozano on 03-03-2025 Platelets (Bld) [#/Vol] 220 10*3/uL 150-450 [facility] Comment on above: Performed By: #### C BC, BMP ####[address]#### FRUC ####[facility] , Potassium [Moles/volume] in Serum or PlasmaOrdered By: Da Lozano on 03-03-2025 Potassium [Moles/Vol] 4.9 mmol/L 3.5-5.1 [facility] Comment on above: Performed By: #### C BC, BMP ####[address]#### FRUC ####[facility] , Protein [Mass/volume] in Uri ne by Test stripOrdered By: Da Lozano on 03-03-2025 Protein (U) [Mass/Vol] 100 mg/dL High Negative [facility] Comment on above: Order Comment: Name Collection Type:: Clean-Voided Midstream Performed By: #### C UU, ADDONUAPLUS ####[address] Serum or plasma anion gap de terminationOrdered By: Da Lozano on 03-03-2025 Anion gap [Moles/Vol] 10.3 mmol/L 6.0-15.0 [facility] Comment on above: Performed By: #### C BC, BMP ####[address]#### FRUC ####[facility] , Sodium [Moles/volume] in Ser um or PlasmaOrdered By: Da Lozano on 03-03-2025 Sodium [Moles/Vol] 138 mmol/L 136-145 [facility] Comment on above: Performed By: #### C BC, BMP ####[address]#### FRUC ####[facility] , Specific gravity Test strip (U) [Rel density]Ordered By: Da Lozano on 03-03-2025 Specific gravity (U) [Rel density] 1.012 1.001-1.030 [facility] Urea nitrogen [Mass/volume] in Serum or PlasmaOrdered By: Da Lozano on 03-03-2025 Urea nitrogen [Mass/Vol] 46 mg/dL High 7-25 [facility] Comment on above: Performed By: #### C BC, BMP ####[address]#### FRUC ####[facility] , Urine Cultureon 03-03-2025 Bacteria identified Cx Nom (U) Urine Culture Results >100,000 col/ml Mixed Bacterial Skin Contaminants 2 Days PERFORMED BY: [facility] [address] [place] [address] PATHOLOGIST SALES TECHNICIAN HOME THE[employer] ALINA PADILLA M.D. Normal [facility] Comment on above: Performed By: #### C UU, ADDONUAPLUS ####[address] Urine cultureOrdered By: Landon Lozano on 03-03-2025 Bacteria identified Cx Nom (U) [facility] Urobilinogen Test strip (U) [Mass/Vol]Ordered By: Da Lozano on 03-03-2025 Urobilinogen (U) [Mass/Vol] Normal mg/dL Normal [facility] pH of Urine by Test stripOrd ered By: Da Lozano on 03-03-2025 pH (U) 7.0 [pH] 5.0-9.0 [facility] Comment on above: Order Comment: Name Collection Type:: Clean-Voided Midstream Performed By: #### C UU, ADDONUAPLUS ####[facility] [address] [place] [address] [facility] Erythrocyte distribution wid th Auto (RBC) [Ratio]Ordered By: Leroy Ashby on 02-07-2025 Erythrocyte distribution width (RBC) [Ratio] 15.5 % High 11.0-15.0 [facility] Estimated glomerular filtrat ion rate (GFR) non- AmericanOrdered By: Leroy Ashby on 02-07-2025 GFR/1.73 sq M.predicted among non-blacks MDRD (S/P/Bld) [Vol rate/Area] 26 mL/min/{1.73_m2} Low >=60 mL/min/1.73m 2 [facility] Hematocrit Auto (Bld) [Volum e fraction]Ordered By: Leroy Ashby on 02-07-2025 Hematocrit (Bld) [Volume fraction] 36.6 % 36.0-48.0 [facility] Hemoglobin [Mass/volume] in BloodOrdered By: Leroy Ashby on 02-07-2025 Hemoglobin (Bld) [Mass/Vol] 11.5 g/dL Low 12.0-16.0 [facility] Iron binding capacity [Mass/ volume] in Serum or PlasmaOrdered By: Leroy Ashby on 02-07-2025 Iron binding capacity [Mass/Vol] 211.0 ug/dL Low 250.0-450.0 [facility] Iron saturation [Mass Fracti on] in Serum or PlasmaOrdered By: Leroy Isma on 02-07-2025 Iron saturation [Mass fraction] 19.4 % [facility] Laboratory - Chemistry and C hemistry - challengeOrdered By: Leroy Ashby on 02-07-2025 Albumin [Mass/Vol] 2.8 g/dL Low 3.4-5.0 [facility] Calcium [Mass/Vol] 9.5 mg/dL 8.5-10.1 [facility] Chloride [Moles/Vol] 98 mmol/L 98-107 [facility] CO2 [Moles/Vol] 28.7 mmol/L 21.0-32.0 [facility] Creatinine [Mass/Vol] 1.88 mg/dL High 0.55-1.02 [facility] Ferritin [Mass/Vol] 187.0 ng/mL 8.0-252.0 [facility] GFR/1.73 sq M.predicted MDRD (S/P/Bld) [Vol rate/Area] 31 mL/min/{1.73_m2} Low >=60 mL/min/1.73m 2 [facility] Glucose [Mass/Vol] 206 mg/dL High 74-106 [facility] Iron [Mass/Vol] 41.0 ug/dL Low 50.0-170.0 [facility] Potassium [Moles/Vol] 4.1 mmol/L 3.5-5.1 [facility] Sodium [Moles/Vol] 135 mmol/L Low 136-145 [facility] Urate [Mass/Vol] 3.8 mg/dL 2.6-6.0 [facility] Urea nitrogen [Mass/Vol] 59.0 mg/dL High 7.0-18.0 [facility] Urea nitrogen/Creatinine [Mass ratio] 31.4 mg/mg [facility] Bilirubin Ql (U) Negative NEGATIVE [facility] Glucose (U) [Mass/Vol] Negative NEGATIVE [facility] Ketones Ql (U) Negative NEGATIVE [facility] pH (U) 6.5 [pH] 5.0-9.0 [facility] Specific gravity (U) [Rel density] 1.015 1.005-1.025 [facility] Laboratory - Specimen inform ationOrdered By: Leroy Ashby on 02-07-2025 Appearance (U) CLOUDY Abnormal CLEAR [facility] Color (U) BROWN Abnormal YELLOW [facility] Laboratory - UrinalysisOrder ed By: Leroy Ashby on 02-07-2025 Leukocyte esterase Test strip Ql (U) LARGE Abnormal NEGATIVE [facility] Mucus Ql (Urine sed) TRACE Abnormal NONE SEEN [facility] Nitrite Ql (U) Negative NEGATIVE [facility] Protein (U) [Mass/Vol] 136.2 mg/dL High <=11.9 [facility] Protein Ql (U) 300 mg/dL Abnormal NEG/TRACE [facility] Leukocytes [#/volume] correc suzi for nucleated erythrocytes in Blood by Automated counOrdered By: Leroy Ashby on 02-07-2025 WBC corrected for nucl RBC Auto (Bld) [#/Vol] 10.6 10 3/uL 4.0-11.0 [facility] MCH Auto (RBC) [Entitic mass ]Ordered By: Leroy Ashby on 02-07-2025 MCH (RBC) [Entitic mass] 31.9 pg 26.7-34.0 [facility] MCHC Auto (RBC) [Mass/Vol]Or dered By: Leroy Ashby on 02-07-2025 MCHC (RBC) [Mass/Vol] 31.4 g/dL 29.9-35.2 [facility] MCV Auto (RBC) [Entitic vol] Ordered By: Leroy Ashby on 02-07-2025 MCV (RBC) [Entitic vol] 101.4 fL High 81.0-99.0 [facility] No Panel InformationOrdered By: Leroy Ashby on 02-07-2025 25-Hydroxy Vitamin D Total 72.5 ng/mL [facility] Comment on above: <20 ng/mL Vit D defi cient20-<30 ng/mL Vit D cjwugewhscue45-286 ng/mL Vit D sufficient>100 ng/mL Potential Toxicity Parathyroid Hormone (Intact) 43 pg/mL 15-65 [facility] Comment on above: Performed at: [address] [id number] Director: Mohan Talbert PhD, Phone: [phone] Phosphorus Level 4.2 mg/dL 2.6-4.7 [facility] Urine Bacteria LARGE #/HPF Abnormal NONE SEEN [facility] Urine Occult Blood LARGE Abnormal NEGATIVE [facility] Urine Other Casts NONE SEEN #/LPF NONE SEEN [facility] Urine Other Crystals None Seen #/HPF None Seen [facility] Urine Random Creatinine 24.06 mg/dL 20.00-300.00 [facility] Urine RBC 5-10 #/HPF Abnormal 0-2 [facility] Urine Squamous Epithelial Cells FEW #/LPF Abnormal NONE/RARE [facility] Urine Transitional Epithelial Cells RARE #/LPF Abnormal NONE SEEN [facility] Urine Urobilinogen N EU/dL 0.2-1.0 [facility] Urine WBC 75-100 #/HPF Abnormal NONE SEEN [facility] Platelet mean volume Auto (B ld) [Entitic vol]Ordered By: Leroy Ashby on 02-07-2025 Platelet mean volume (Bld) [Entitic vol] 11.7 fL 9.5-13.5 [facility] Platelets Auto (Bld) [#/Vol] Ordered By: Leroy Ashby on 02-07-2025 Platelets (Bld) [#/Vol] 213 10 3/uL 150-450 [facility] RBC Auto (Bld) [#/Vol]Ordere d By: Leroy Ashby on 02-07-2025 RBC (Bld) [#/Vol] 3.61 10 6/uL Low 4.20-5.40 [facility] Serum or plasma anion gap de terminationOrdered By: Leroy Ashby on 02-07-2025 Anion gap [Moles/Vol] 12.4 mmol/L [facility] Urine protein/creatinine rat ioOrdered By: Leroy Ashby on 02-07-2025 Protein/Creatinine (U) [Ratio] 5.66 [facility] Glucose mean value [Mass/vol ume] in Blood Estimated from glycated hemoglobinOrdered By: Da Lozano on 01-25-2025 Average glucose Estimated from glycated hemoglobin (Bld) [Mass/Vol] 160 mg/dL [facility] Hemoglobin A1c percentageOrd ered By: Da Lozano on 01-25-2025 HbA1c (Bld) [Mass fraction] 7.2 % High 4.5-6.2 [facility] Comment on above: ADA RECOMMENDED LIMI T 4.0 - 6.0ADA THERAPEUTIC TARGET < 7.0ACTION SUGGESTED> 7.0 Hemoglobin [Mass/volume] in BloodOrdered By: Da Lozano on 01-25-2025 Hemoglobin (Bld) [Mass/Vol] 11.8 g/dL Low 12.0-16.0 [facility] Laboratory - Chemistry and C hemistry - challengeOrdered By: Da Lozano on 01-25-2025 Albumin [Mass/Vol] 2.7 g/dL Low 3.4-5.0 [facility] No Panel InformationOrdered By: Da Lozano on 01-25-2025 25-Hydroxy Vitamin D Total 62.6 ng/mL [facility] Comment on above: <20 ng/mL Vit D defi cient20-<30 ng/mL Vit D mizydnndefso33-225 ng/mL Vit D sufficient>100 ng/mL Potential Toxicity Miscellaneous Test COMMENT . [facility] Comment on above: Test Ordered: [id number] Nicotine and Metabolite, QuantNicotine <1.0 ng/mL Reference Range: .This test was developed and its performance characteristicsdetermined by [employer]. It has not been cleared orapproved by the Food and Drug Administration.Nicotine levels greater than 2.0 are consistent with theuse of tobacco or tobacco cessation products.Cotinine <1.0 ng/mL Reference Range: .This test was developed and its performance characteristicsdetermined by [employer]. It has not been cleared orapproved by the Food and Drug Administration.Cotinine levels greater than 20.0 are consistent with theuse of tobacco or tobacco cessation products.Performed at: - [address] [id number] Director: Navneet Carcamo MD, Phone: [phone] at: [address] [id number] Director: Mohan Talbert PhD, Phone: [phone] HbA1c HPLC (Bld) [Mass fract ion]Ordered By: Stefan Best on 01-11-2025 HbA1c (Bld) [Mass fraction] 7.6 % [facility] - Chemistry and C hemistry - challengeon 05-05-2025 Bilirubin Ql (U) Negative [facility] Glucose (U) [Mass/Vol] Negative [facility] Ketones Ql (U) Negative [facility] pH (U) 6.5 [pH] [facility] Specific gravity (U) [Rel density] 1.005 [facility] Urobilinogen (U) [Mass/Vol] 0.2 mg/dL [facility] Laboratory - Specimen inform ationon 11-15-2024 Appearance (U) cloudy [facility] Color (U) Yellow [facility] Laboratory - Urinalysison Leukocyte esterase Test strip Ql (U) +++ [facility] Nitrite Ql (U) Negative [facility] Protein Ql (U) +++ [facility] No Panel Informationon 11-15 Urine Occult Blood ++ [facility] Urine Cultureon 11-15-2024 Bacteria identified Cx Nom (U) Normal [facility] Comment on above: Performed By: #### C UU ####[facility] [id number] [id number] [facility] Urine cultureOrdered By: Sulema Best on 11-15-2024 Bacteria identified Cx Nom (U) 2 Days [facility] Capillary blood glucose lei urement by glucometer (mass/volume)Ordered By: Yaniv Natarajan on 10-22-2024 Glucose [Mass/Vol] 172 mg/dL Normal [facility] Comment on above: Random Glucose Refer ence Range is dependent on time and content of last meal. Glucose of more than 200 mg/dL in a nonstressed, ambulatory subject supports the diagnosis of Diabetes Mellitus. Result Comment: [place] [facility] Glucose Reference Range is dependent on time and content of last meal. Glucose of more than 200 mg/dL in a nonstressed, ambulatory subject supports the diagnosis of Diabetes Mellitus. Performed By: #### G LULS ####Point of Care testing, Glucose Glucometer (BldC) [M ass/Vol]Ordered By: Yaniv Natarajan on 10-22-2024 Glucose [Mass/Vol] Capillary blood glucose measurement by glucometer (mass/volume) [facility] Comment on above: Random Glucose Refer ence Range is dependent on time and content of last meal. Glucose of more than 200 mg/dL in a nonstressed, ambulatory subject supports the diagnosis of Diabetes Mellitus. Glucose Poct Glucometerson 0 10-22-2024 Commemt1 Glu2: Cleaned Meter Normal [facility] Comment on above: Result Comment: PERF ORMED BY:[address], [place] [id number] MEDICAL DIRECTORRADHA DURAN M.D. Performed By: #### G LULS ####[facility] testing, Commemt1 Normal [facility] Comment on above: Result Comment: Glu2 : WILL NOTIFY DR/RN Performed By: #### G LULS ####[facility] testing, Commemt2 Cleaned Meter Normal [facility] Comment on above: Result Comment: PERF ORMED BY:[address] [place], [place] [id number] MEDICAL DIRECTORRADHA DURAN M.D. Performed By: #### G LULS ####[facility], Glucose [Mass/Vol] 217 mg/dL Normal [facility] Comment on above: Result Comment: [place] [facility] Glucose Reference Range is dependent on time and content of last meal. Glucose of more than 200 mg/dL in a nonstressed, ambulatory subject supports the diagnosis of Diabetes Mellitus. Performed By: #### G LULS ####[facility] testing, No Panel InformationOrdered By: Yaniv Natarajan on 10-22-2024 Bedside Glucose Comment Glu2: cleaned meter [facility] Bedside Glucose #2 Comment Cleaned meter [facility] X-ray reportOrdered By: Andrea Iraheta on 10-22-2024 Study report [facility] [address] [place] [address] XRay Report Signed Patient: Lexi Tatum MR#: [id number] : 1945 Acct:[id number] Age/Sex: 79 / F ADM Date: 5 Loc: [place] Room: Type: [facility] Attending Dr: Yaniv Natarajan MD Copies to: Yaniv Natarajan MD~ Ordering Provider: Yaniv Natarajan MD Date of Service: 10/22/24 XR/XR KUB: Pre Op KUB: CLINICAL INFORMATION: Preop. Hydronephrosis. COMPARISON: Intraoperative study 2024 FINDINGS: Bilateral double-J ureteral stents are identified. Presumed vascular calcifications are seen projecting over the renal shadows. No definitive ureteral calculus is seen. Presumed phleboliths are seen within the pelvis. Nobowel obstruction or free air. Osseous structures demonstrate degenerative change. XR/XR KUB IMPRESSION: DOUBLE J URETERAL STENTS ARE SEEN BILATERALLY WITHOUT DEFINITIVE URINARY TRACT CALCULUS. Impression dictated by: Earnest Iraheta Jr., D.O.10/22/2024 8:55 AM Dictation Location: [facility] Transcribed By: [facility] 10/22/24 0855 Dictated By: Earnest Iraheta Jr, DO 10/22/24 0854 Signed By: 10/22/24 0855 [facility] XR KUBon 10-22-2024 XR KUB Normal [facility] XR KUB Normal [facility] Basophils Auto (Bld) [#/Vol] on 09-27-2024 Basophils (Bld) [#/Vol] Automated basophil count 0.0-0.1 [facility] Basophils/100 WBC Auto (Bld) on 09-27-2024 Basophils/100 WBC (Bld) Automated basophil % 0.2-2.0 [facility] Eosinophils/100 WBC Auto (Bl d)on 09-27-2024 Eosinophils/100 WBC (Bld) Automated eosinophil % Low 0.9-7.0 [facility] Erythrocyte distribution wid th Auto (RBC) [Ratio]on 09-27-2024 Erythrocyte distribution width (RBC) [Ratio] Erythrocyte distribution width [Ratio] by Automated count High 11.0-15.0 [facility] Estimated glomerular filtrat ion rate (GFR) non- Americanon 09-27-2024 GFR/1.73 sq M.predicted among non-blacks MDRD (S/P/Bld) [Vol rate/Area] Estimated glomerular filtration rate (GFR) non- Low >=60 mL/min/1.73m 2 [facility] Globulin Calc (S) [Mass/Vol] on 09-27-2024 Globulin (S) [Mass/Vol] Serum globulin measurement by calculation (mass/volume) [facility] Glucose mean value [Mass/vol ume] in Blood Estimated from glycated hemoglobinon 09-27-2024 Average glucose Estimated from glycated hemoglobin (Bld) [Mass/Vol] Glucose mean value [Mass/volume] in Blood Estimated from glycated hemoglobin [facility] Hematocrit Auto (Bld) [Volum e fraction]on 09-27-2024 Hematocrit (Bld) [Volume fraction] Hematocrit [Volume Fraction] of Blood by Automated count Low 36.0-48.0 [facility] Hemoglobin A1c percentageon 09-27-2024 HbA1c (Bld) [Mass fraction] Hemoglobin A1c percentage High 4.5-6.2 [facility] Comment on above: ADA RECOMMENDED LIMI T 4.0 - 6.0ADA THERAPEUTIC TARGET < 7.0ACTION SUGGESTED> 7.0 Hemoglobin [Mass/volume] in Bloodon 09-27-2024 Hemoglobin (Bld) [Mass/Vol] Hemoglobin [Mass/volume] in Blood Low 12.0-16.0 [facility] Laboratory - Chemistry and C hemistry - challengeon 09-27-2024 Albumin [Mass/Vol] 2.3 g/dL Low 3.4-5.0 [facility] ALP [Catalytic activity/Vol] 52 U/L 46-116 [facility] ALT [Catalytic activity/Vol] U/L Low 14-59 [facility] AST [Catalytic activity/Vol] 9 U/L Low 15-37 [facility] Bilirubin [Mass/Vol] 0.3 mg/dL 0.2-1.0 [facility] Calcium [Mass/Vol] 8.8 mg/dL 8.5-10.1 [facility] Chloride [Moles/Vol] 105 mmol/L 98-107 [facility] CO2 [Moles/Vol] 26.7 mmol/L 21.0-32.0 [facility] Creatinine [Mass/Vol] 1.85 mg/dL High 0.55-1.02 [facility] GFR/1.73 sq M.predicted MDRD (S/P/Bld) [Vol rate/Area] 32 mL/min/{1.73_m2} Low >=60 mL/min/1.73m 2 [facility] Glucose [Mass/Vol] 153 mg/dL High 74-106 [facility] Magnesium [Mass/Vol] 2.0 mg/dL 1.8-2.4 [facility] Potassium [Moles/Vol] 3.7 mmol/L 3.5-5.1 [facility] Protein [Mass/Vol] 6.3 g/dL Low 6.4-8.2 [facility] Sodium [Moles/Vol] 141 mmol/L 136-145 [facility] Urea nitrogen [Mass/Vol] 53.0 mg/dL High 7.0-18.0 [facility] Urea nitrogen/Creatinine [Mass ratio] 28.6 mg/mg [facility] Laboratory - Hematology and Cell countson 09-27-2024 Immature granulocytes/100 WBC (Bld) 0.4 % 0.0-0.5 [facility] Leukocytes [#/volume] correc suzi for nucleated erythrocytes in Blood by Automated counon 09-27-2024 WBC corrected for nucl RBC Auto (Bld) [#/Vol] Leukocytes [#/volume] corrected for nucleated erythrocytes in Blood by Automated coun High 4.0-11.0 [facility] Lymphocytes Auto (Bld) [#/Vo l]on 09-27-2024 Lymphocytes (Bld) [#/Vol] Lymphocytes [#/volume] in Blood by Automated count 1.2-3.8 [facility] Lymphocytes/100 WBC Auto (Bl d)on 09-27-2024 Lymphocytes/100 WBC (Bld) Lymphocytes/100 leukocytes in Blood by Automated count Low 20.5-60.0 [facility] MCH Auto (RBC) [Entitic mass ]on 09-27-2024 MCH (RBC) [Entitic mass] MCH [Entitic mass] by Automated count 26.7-34.0 [facility] MCHC Auto (RBC) [Mass/Vol]on 09-27-2024 MCHC (RBC) [Mass/Vol] MCHC [Mass/volume] by Automated count 29.9-35.2 [facility] MCV Auto (RBC) [Entitic vol] on 09-27-2024 MCV (RBC) [Entitic vol] MCV [Entitic volume] by Automated count High 81.0-99.0 [facility] Monocytes Auto (Bld) [#/Vol] on 09-27-2024 Monocytes (Bld) [#/Vol] Automated blood monocyte count High 0.3-0.8 [facility] Monocytes/100 WBC Auto (Bld) on 09-27-2024 Monocytes/100 WBC (Bld) Automated monocyte % 1.7-12.0 [facility] Neutrophils Auto (Bld) [#/Vo l]on 09-27-2024 Neutrophils (Bld) [#/Vol] Neutrophils [#/volume] in Blood by Automated count High 1.4-6.5 [facility] Neutrophils/100 WBC Auto (Bl d)on 09-27-2024 Neutrophils/100 WBC (Bld) Automated neutrophil % 43.0-75.0 [facility] No Panel Informationon 09-27 Eosinophils # (Auto) 0.1 10 3/uL 0.0-0.7 [facility] Immature Granulocyte # (Auto) 0.04 10 3/uL High 0.00-0.03 [facility] Platelet mean volume Auto (B ld) [Entitic vol]on 09-27-2024 Platelet mean volume (Bld) [Entitic vol] Platelet mean volume [Entitic volume] in Blood by Automated count 9.5-13.5 [facility] Platelets Auto (Bld) [#/Vol] on 09-27-2024 Platelets (Bld) [#/Vol] Platelets [#/volume] in Blood by Automated count 150-450 [facility] RBC Auto (Bld) [#/Vol]on RBC (Bld) [#/Vol] Erythrocytes [#/volume] in Blood by Automated count Low 4.20-5.40 [facility] Serum or plasma albumin/glob ulin mass ratioon 09-27-2024 Albumin/Globulin [Mass ratio] Serum or plasma albumin/globulin mass ratio [facility] Serum or plasma anion gap de terminationon 09-27-2024 Anion gap [Moles/Vol] Serum or plasma anion gap determination [facility] Basophils Auto (Bld) [#/Vol] on 09-26-2024 Basophils (Bld) [#/Vol] Automated basophil count 0.0-0.1 [facility] Basophils/100 WBC Auto (Bld) on 09-26-2024 Basophils/100 WBC (Bld) Automated basophil % 0.2-2.0 [facility] Eosinophils/100 WBC Auto (Bl d)on 09-26-2024 Eosinophils/100 WBC (Bld) Automated eosinophil % 0.9-7.0 [facility] Erythrocyte distribution wid th Auto (RBC) [Ratio]on 09-26-2024 Erythrocyte distribution width (RBC) [Ratio] Erythrocyte distribution width [Ratio] by Automated count High 11.0-15.0 [facility] Estimated glomerular filtrat ion rate (GFR) non- Americanon 09-26-2024 GFR/1.73 sq M.predicted among non-blacks MDRD (S/P/Bld) [Vol rate/Area] Estimated glomerular filtration rate (GFR) non- Low >=60 mL/min/1.73m 2 [facility] Hematocrit Auto (Bld) [Volum e fraction]on 09-26-2024 Hematocrit (Bld) [Volume fraction] Hematocrit [Volume Fraction] of Blood by Automated count 36.0-48.0 [facility] Hemoglobin [Mass/volume] in Bloodon 09-26-2024 Hemoglobin (Bld) [Mass/Vol] Hemoglobin [Mass/volume] in Blood Low 12.0-16.0 [facility] Laboratory - Chemistry and C hemistry - challengeon 09-26-2024 Calcium [Mass/Vol] 9.5 mg/dL 8.5-10.1 [facility] Chloride [Moles/Vol] 100 mmol/L 98-107 [facility] CO2 [Moles/Vol] 27.9 mmol/L 21.0-32.0 [facility] Creatinine [Mass/Vol] 2.12 mg/dL High 0.55-1.02 [facility] GFR/1.73 sq M.predicted MDRD (S/P/Bld) [Vol rate/Area] 27 mL/min/{1.73_m2} Low >=60 mL/min/1.73m 2 [facility] Glucose [Mass/Vol] 205 mg/dL High 74-106 [facility] Potassium [Moles/Vol] 4.7 mmol/L 3.5-5.1 [facility] Sodium [Moles/Vol] 137 mmol/L 136-145 [facility] Urea nitrogen [Mass/Vol] 58.0 mg/dL High 7.0-18.0 [facility] Urea nitrogen/Creatinine [Mass ratio] 27.4 mg/mg [facility] Laboratory - Hematology and Cell countson 09-26-2024 Immature granulocytes/100 WBC (Bld) 0.7 % High 0.0-0.5 [facility] Leukocytes [#/volume] correc suzi for nucleated erythrocytes in Blood by Automated counon 09-26-2024 WBC corrected for nucl RBC Auto (Bld) [#/Vol] Leukocytes [#/volume] corrected for nucleated erythrocytes in Blood by Automated coun High 4.0-11.0 [facility] Lymphocytes Auto (Bld) [#/Vo l]on 09-26-2024 Lymphocytes (Bld) [#/Vol] Lymphocytes [#/volume] in Blood by Automated count 1.2-3.8 [facility] Lymphocytes/100 WBC Auto (Bl d)on 09-26-2024 Lymphocytes/100 WBC (Bld) Lymphocytes/100 leukocytes in Blood by Automated count Low 20.5-60.0 [facility] MCH Auto (RBC) [Entitic mass ]on 09-26-2024 MCH (RBC) [Entitic mass] MCH [Entitic mass] by Automated count 26.7-34.0 [facility] MCHC Auto (RBC) [Mass/Vol]on 09-26-2024 MCHC (RBC) [Mass/Vol] MCHC [Mass/volume] by Automated count 29.9-35.2 [facility] MCV Auto (RBC) [Entitic vol] on 09-26-2024 MCV (RBC) [Entitic vol] MCV [Entitic volume] by Automated count High 81.0-99.0 [facility] Monocytes Auto (Bld) [#/Vol] on 09-26-2024 Monocytes (Bld) [#/Vol] Automated blood monocyte count High 0.3-0.8 [facility] Monocytes/100 WBC Auto (Bld) on 09-26-2024 Monocytes/100 WBC (Bld) Automated monocyte % 1.7-12.0 [facility] Neutrophils Auto (Bld) [#/Vo l]on 09-26-2024 Neutrophils (Bld) [#/Vol] Neutrophils [#/volume] in Blood by Automated count High 1.4-6.5 [facility] Neutrophils/100 WBC Auto (Bl d)on 09-26-2024 Neutrophils/100 WBC (Bld) Automated neutrophil % 43.0-75.0 [facility] No Panel Informationon 09-26 Eosinophils # (Auto) 0.2 10 3/uL 0.0-0.7 [facility] Immature Granulocyte # (Auto) 0.10 10 3/uL High 0.00-0.03 [facility] Troponin I High Sensitivity 21.9 pg/mL 4.0-51.3 [facility] Comment on above: CUT-OFF POINTS HAVE BEEN ESTABLISHED BASED ON THE FOURTHUNIVERSAL DEFINITION OF MYOCARDIAL INFARCTION. THE UPPERREFERENCE LIMIT (URL) OF TROPONIN, DEFINED THE 99THPERCENTILE OF cTnI DISTRIBUTION IN A REFERENCE POPULATION,HAS BEEN CONFIRMED THE DECISION THRESHOLD FOR MIDIAGNOSIS.99TH PERCENTILE = 51.4 PG/MLNOTE: HIGH-SENSITIVITY TROPONIN ASSAY IS NOT INTENDED TO BEUSED IN ISOLATION BUT SHOULD BE INTERPRETED IN CONJUNCTIONWITH OTHER DIAGNOSTIC AND CLINICAL INFORMATION. Platelet mean volume Auto (B ld) [Entitic vol]on 09-26-2024 Platelet mean volume (Bld) [Entitic vol] Platelet mean volume [Entitic volume] in Blood by Automated count 9.5-13.5 [facility] Platelets Auto (Bld) [#/Vol] on 09-26-2024 Platelets (Bld) [#/Vol] Platelets [#/volume] in Blood by Automated count 150-450 [facility] RBC Auto (Bld) [#/Vol]on RBC (Bld) [#/Vol] Erythrocytes [#/volume] in Blood by Automated count Low 4.20-5.40 [facility] Serum or plasma anion gap de terminationon 09-26-2024 Anion gap [Moles/Vol] Serum or plasma anion gap determination [facility] Urine Cultureon 09-26-2024 Bacteria identified Cx Nom (U) Normal [facility] Comment on above: Performed By: #### C UU ####[place] [id number] [place] Appearance of UrineOrdered B y: Leroy Isma on 07-15-2024 Appearance (U) Urine appearance Abnormal Clear [facility] Bacteria [Presence] in Urine by AutomatedOrdered By: Leroy Isma on 07-15-2024 Bacteria Auto Ql (U) Bacteria [Presence] in Urine by Automated High None Seen [facility] Bilirubin Test strip Ql (U)O rdered By: Leroy Isma on 07-15-2024 Bilirubin Ql (U) Bilirubin.total [Presence] in Urine by Test strip Negative [facility] Color Auto (U)Ordered By: Ab carl Ashby on 07-15-2024 Color (U) Color of Urine by Auto Yellow [facility] Creatinine [Mass/volume] in UrineOrdered By: Leroy Isma on 07-15-2024 Creatinine (U) [Mass/Vol] Creatinine [Mass/volume] in Urine [facility] Comment on above: No reference range e stablished Dipstick and Microscopicon 0 07-15-2024 Appearance (U) Cloudy Critically abnormal Clear [facility] Comment on above: Order Comment: Name Collection Type:: Voided Performed By: #### A DDONUAPLUS, CUU ####[place] [address] [place] [address] [place] Bacteria,Urine 2+ High None Seen [facility] Comment on above: Order Comment: Name Collection Type:: Voided Performed By: #### A DDONUAPLUS, CUU ####[facility] [place] [address] [place] Bilirubin,Urine Negative Normal Negative [facility] Comment on above: Order Comment: Name Collection Type:: Voided Performed By: #### A DDONUAPLUS, CUU ####[address] [address] [facility] Color (U) Colorless Normal Yellow [facility] Comment on above: Order Comment: Name Collection Type:: Voided Performed By: #### A DDONUAPLUS, CUU ####[address] [address] [facility] Glucose Ql (U) Normal Normal Normal [facility] Comment on above: Order Comment: Name Collection Type:: Voided Performed By: #### A DDONUAPLUS, CUU ####[address] [address] [facility] Hyaline Casts,Urine 0 [LPF] Normal 0-8 [facility] Comment on above: Order Comment: Name Collection Type:: Voided Performed By: #### A DDONUAPLUS, CUU ####[address] [address] [facility] Ketones Ql (U) Negative Normal Negative [facility] Comment on above: Order Comment: Name Collection Type:: Voided Performed By: #### A DDONUAPLUS, CUU ####[address] [address] [facility] Leukocyte esterase Test strip Ql (U) 4+ High Negative [facility] Comment on above: Order Comment: Name Collection Type:: Voided Performed By: #### A DDONUAPLUS, CUU ####[address] [address] [facility] Mucus,Urine Rare Normal [facility] Comment on above: Order Comment: Name Collection Type:: Voided Result Comment: PERF ORMED BY:[address] [place], [place] [phone] MEDICAL DIRECTORRADHA DURAN M.D. Performed By: #### A DDONUAPLUS, CUU ####[address] [address] [facility] Nitrite,Urine Negative Normal Negative [facility] Comment on above: Order Comment: Name Collection Type:: Voided Performed By: #### A DDONUAPLUS, CUU ####[place] [id number] [facility] Occult Blood,Urine 1+ High Negative [facility] Comment on above: Order Comment: Name Collection Type:: Voided Performed By: #### A DDONUAPLUS, CUU ####[place] [id number] [facility] pH (U) 6.5 [pH] Normal 5.0-9.0 [facility] Comment on above: Order Comment: Name Collection Type:: Voided Performed By: #### A DDONUAPLUS, CUU ####[address] Protein (U) [Mass/Vol] 50 mg/dL High Negative [facility] Comment on above: Order Comment: Name Collection Type:: Voided Performed By: #### A DDONUAPLUS, CUU ####[address] RBC,Urine 5 [HPF] High 0-4 [facility] Comment on above: Order Comment: Name Collection Type:: Voided Performed By: #### A DDONUAPLUS, CUU ####[address] Specificy [place],Urine 1.009 Normal 1.001-1.030 [facility] Comment on above: Order Comment: Name Collection Type:: Voided Performed By: #### A DDONUAPLUS, CUU ####[address] Squamous Epithelial Cell,Urine 3 [HPF] High 0-2 [facility] Comment on above: Order Comment: Name Collection Type:: Voided Performed By: #### A DDONUAPLUS, CUU ####[place] [id number] [facility] Urobilinogen,Urine Normal Normal Normal [facility] Comment on above: Order Comment: Name Collection Type:: Voided Performed By: #### A DDONUAPLUS, CUU ####[facility] [id number] [place] [address] [facility] WBC CLUMP, Urine Many High None Seen [facility] Comment on above: Order Comment: Name Collection Type:: Voided Performed By: #### A DDONUAPLUS, CUU ####[facility] [id number] [place] [address] [facility] WBC,Urine Innumerable High 0-4 [facility] Comment on above: Order Comment: Name Collection Type:: Voided Performed By: #### A DDONUAPLUS, CUU ####[facility] [id number] [place] [address] [facility] Epithelial cells.squamous [# /area] in Urine sediment by Automated countOrdered By: Leroy Ashby on 07-15-2024 Epithelial cells.squamous Auto (Urine sed) [#/Area] Epithelial cells.squamous [#/area] in Urine sediment by Automated count High 0-2 [facility] Erythrocytes [#/area] in Uri ne sediment by Automated countOrdered By: Leroy Ashby on 07-15-2024 RBC Auto (Urine sed) [#/Area] Erythrocytes [#/area] in Urine sediment by Automated count High 0-4 [facility] Glucose [Mass/volume] in Uri ne by Test stripOrdered By: Leroy Ashby on 07-15-2024 Glucose Test strip (U) [Mass/Vol] Glucose [Mass/volume] in Urine by Test strip Normal [facility] Hemoglobin Test strip Ql (U) Ordered By: Leroy Ashby on 07-15-2024 Hemoglobin Ql (U) Hemoglobin [Presence] in Urine by Test strip High Negative [facility] Hyaline casts [#/area] in Ur ine sediment by Automated countOrdered By: Leroy Ashby on 07-15-2024 Hyaline casts Auto (Urine sed) [#/Area] Hyaline casts [#/area] in Urine sediment by Automated count 0-8 [facility] Ketones Test strip Ql (U)Ord ered By: Leroy Ashby on 07-15-2024 Ketones Ql (U) Ketones [Presence] in Urine by Test strip Negative [facility] Leukocyte clumps [Presence] in Urine by AutomatedOrdered By: Leroy Ashby on 07-15-2024 Leukocyte clumps Auto Ql (U) Leukocyte clumps [Presence] in Urine by Automated High None Seen [facility] Leukocyte esterase [Presence ] in Urine by Test stripOrdered By: Leroy Ashby on 07-15-2024 Leukocyte esterase Test strip Ql (U) Leukocyte esterase [Presence] in Urine by Test strip High Negative [facility] Leukocytes [#/area] in Urine sediment by Automated countOrdered By: Leroy Ashby on 07-15-2024 WBC Auto (Urine sed) [#/Area] Leukocytes [#/area] in Urine sediment by Automated count High 0-4 [facility] Mucus [Presence] in Urine by AutomatedOrdered By: Leroy Ashby on 07-15-2024 Mucus Auto Ql (U) Mucus [Presence] in Urine by Automated [facility] Nitrite Test strip Ql (U)Ord ered By: Leroy Ashby on 07-15-2024 Nitrite Ql (U) Nitrite [Presence] in Urine by Test strip Negative [facility] Protein Creat Ratio Ur Rando mon 07-15-2024 Creatinine, Urine (Random) 25.00 mg/dL Normal [facility] Comment on above: Result Comment: No r eference range established Performed By: #### P ROCRERAT ####[address] [address] [facility] Protein (U) [Mass/Vol] 66 mg/dL High 0-9 [facility] Comment on above: Performed By: #### P ROCRERAT ####[address] [address] [facility] Urine Protein/Creatinine Ratio 2640 mg/g{Cre} High 0-200 [facility] Comment on above: Result Comment: PERF ORMED BY:[address] [place], [place] [phone] MEDICAL DIRECTORRADHA DURAN M.D. Performed By: #### P ROCRERAT ####[address] [address] [facility] Protein Test strip (U) [Mass /Vol]Ordered By: Leroy Isma on 07-15-2024 Protein (U) [Mass/Vol] Protein [Mass/volume] in Urine by Test strip High Negative [facility] Protein [Mass/volume] in Uri neOrdered By: Leryo Isma on 07-15-2024 Protein (U) [Mass/Vol] Protein [Mass/volume] in Urine High 0-9 [facility] Specific gravity Test strip (U) [Rel density]Ordered By: Leroy Isma on 07-15-2024 Specific gravity (U) [Rel density] Specific gravity of Urine by Test strip 1.001-1.030 [facility] Urine Cultureon 07-15-2024 Bacteria identified Cx Nom (U) Normal [facility] Comment on above: Performed By: #### A TERESA, CUU ####[address] [place] [address] [facility] Urine cultureOrdered By: Abd ul Isma on 07-15-2024 Bacteria identified Cx Nom (U) Urine culture [facility] Bacteria identified Cx Nom (U) Urine culture [facility] Urine protein/creatinine rat ioOrdered By: Leroy Isma on 07-15-2024 Protein/Creatinine (U) [Ratio] Urine protein/creatinine ratio High 0-200 [facility] Urobilinogen Test strip (U) [Mass/Vol]Ordered By: Leroy Isma on 07-15-2024 Urobilinogen (U) [Mass/Vol] Urobilinogen [Mass/volume] in Urine by Test strip Normal [facility] pH Test strip (U)Ordered By: Leroy Isma on 07-15-2024 pH (U) pH of Urine by Test strip 5.0-9.0 [facility] A1C with Estimated Average G svenn 06-28-2024 Glucose [Mass/Vol] 189 mg/dL Normal [facility] Comment on above: Result Comment: PERF ORMED BY:[address] [place], [place] [phone] MEDICAL DIRECTORRADHA DURAN M.D. Performed By: #### A [facility]C [facility] eA ####[facility] [place] [id number] [facility] HbA1c (Bld) [Mass fraction] 8.2 % High 4.3-5.6 [facility] Comment on above: Result Comment: Incr eased risk for diabetes: 5.7 - 6.4 diabetes: >6.4 glycemic control for adults with diabetes: <7.0 Performed By: #### A 1C [facility] eA ####[facility] [place] [id number] [facility] Albumin [Mass/volume] in Ser um or Plasma by Bromocresol green (BCG) dye binding methoOrdered By: Leroy Ashby on 06-28-2024 Albumin BCG dye [Mass/Vol] Albumin [Mass/volume] in Serum or Plasma by Bromocresol green (BCG) dye binding metho 3.5-5.7 [facility] Blood estimated average gluc ose determination by estimation from glycated hemoglobinOrdered By: Da Lozano on 06-28-2024 Average glucose Estimated from glycated hemoglobin (Bld) [Mass/Vol] Glucose mean value [Mass/volume] in Blood Estimated from glycated hemoglobin [facility] Calcium [Mass/volume] in Ser um or PlasmaOrdered By: Leroy Ashby on 06-28-2024 Calcium [Mass/Vol] Calcium [Mass/volume] in Serum or Plasma 8.6-10.3 [facility] Carbon dioxide, total [Moles /volume] in Serum or PlasmaOrdered By: Leroy Ashby on 06-28-2024 CO2 [Moles/Vol] Carbon dioxide, total [Moles/volume] in Serum or Plasma 21.0-31.0 [facility] Chloride [Moles/volume] in S [place] or PlasmaOrdered By: Leroy Ashby on 06-28-2024 Chloride [Moles/Vol] Chloride [Moles/volume] in Serum or Plasma 98-107 [facility] Creatinine [Mass/volume] in Serum or PlasmaOrdered By: Leroy Ashby on 06-28-2024 Creatinine [Mass/Vol] Creatinine [Mass/volume] in Serum or Plasma High 0.60-1.20 [facility] Erythrocyte distribution wid th Auto (RBC) [Ratio]Ordered By: Leroy Ashby on 06-28-2024 Erythrocyte distribution width (RBC) [Ratio] Erythrocyte distribution width [Ratio] by Automated count High 11.9-15.3 [facility] Ferritinon 06-28-2024 Ferritin [Mass/Vol] 96.0 ng/mL Normal 11.0-306.8 [facility] Comment on above: Performed By: #### I FE SERUM, SPE W INTERPRET, KAPPA ####[facility] ,#### [id number], [id number], FE and TIBC, RENAL, PTH, MG, URIC, ELIAS, CBCNO ####[facility] [id number] [place] [id number] [facility] Ferritin [Mass/volume] in Se rum or PlasmaOrdered By: Leroy Ashby on 06-28-2024 Ferritin [Mass/Vol] Ferritin [Mass/volume] in Serum or Plasma 11.0-306.8 [facility] Folate [Mass/volume] in Seru m or PlasmaOrdered By: Leroy Ashby on 06-28-2024 Folate [Mass/Vol] Folate [Mass/volume] in Serum or Plasma >5.9 [facility] Comment on above: Folate reference ran ge: >5.9 ng/mlThe WHO technical consultation on folate and vitamin [id number] has determined that folate concentrations lessthan 4 ng/ml are considered deficient. Free K+L LT Chains, Qn, Son 06-28-2024 Free Sasser Light Chains, S 113.1 mg/L High 3.3-19.4 [facility] Comment on above: Performed By: #### I FE SERUM, SPE W INTERPRET, KAPPA ####[facility] ,#### [id number], [id number], FE and TIBC, RENAL, PTH, MG, URIC, ELIAS, CBCNO ####[facility] [id number] [place] [address] [facility] Free Lambda Light Chains, S 52.4 mg/L High 5.7-26.3 [facility] Comment on above: Performed By: #### I FE SERUM, SPE W INTERPRET, KAPPA ####[facility] ,#### [id number], [id number], FE and TIBC, RENAL, PTH, MG, URIC, ELIAS, CBCNO ####[facility] Sasser/Lambda Ratio, S 2.16 High 0.26-1.65 [facility] Comment on above: Result Comment: Perf ormed at: - [facility] [address] [id number] [employer]: Mohan Talbert PhD, Phone: [phone] BY:[address] [place], [place] [phone] MEDICAL DIRECTORMOJERICA DURAN M.D. Performed By: #### I FE SERUM, SPE W INTERPRET, KAPPA ####[facility] ,#### [id number], [id number], FE and TIBC, RENAL, PTH, MG, URIC, ELIAS, CBCNO ####[place] [address] Glucose [Mass/volume] in Ser um or PlasmaOrdered By: Leroy Ashby on 06-28-2024 Glucose [Mass/Vol] Glucose [Mass/volume] in Serum or Plasma High 70-100 [facility] Comment on above: ADA recommended refe rence rangeRandom Glucose Reference Range is dependent on time and content of last meal. Glucose of more than 200 mg/dL in a nonstressed, ambulatory subject supports the diagnosis of Diabetes Mellitus. Hematocrit Auto (Bld) [Volum e fraction]Ordered By: Leroy Ashby on 06-28-2024 Hematocrit (Bld) [Volume fraction] Hematocrit [Volume Fraction] of Blood by Automated count 34.0-46.4 [facility] Hemoglobin A1c/Hemoglobin.to nathen in BloodOrdered By: Da Lozano on 06-28-2024 HbA1c (Bld) [Mass fraction] Hemoglobin A1c percentage High 4.3-5.6 [facility] Comment on above: Increased risk for d iabetes: 5.7 - 6.4diabetes: >6.4glycemic control for adults with diabetes: <7.0 Hemoglobin [Mass/volume] in BloodOrdered By: Leroy Ashby on 06-28-2024 Hemoglobin (Bld) [Mass/Vol] Hemoglobin [Mass/volume] in Blood 11.8-15.4 [facility] Hemogram CBC Without Diffon 06-28-2024 Erythrocyte distribution width (RBC) [Ratio] 15.9 % High 11.9-15.3 [facility] Comment on above: Performed By: #### I FE SERUM, SPE W INTERPRET, KAPPA ####[facility] ,#### [id number], [id number], FE and TIBC, RENAL, PTH, MG, URIC, ELIAS, CBCNO ####[address] Hematocrit (Bld) [Volume fraction] 37.6 % Normal 34.0-46.4 [facility] Comment on above: Performed By: #### I FE SERUM, SPE W INTERPRET, KAPPA ####[facility] ,#### [id number], [id number], FE and TIBC, RENAL, PTH, MG, URIC, ELIAS, CBCNO ####[place] [id number] [facility] Hemoglobin (Bld) [Mass/Vol] 12.2 g/dL Normal 11.8-15.4 [facility] Comment on above: Performed By: #### I FE SERUM, SPE W INTERPRET, KAPPA ####[facility] ,#### [id number], [id number], FE and TIBC, RENAL, PTH, MG, URIC, ELIAS, CBCNO ####[place] [id number] [facility] MCH (RBC) [Entitic mass] 31.7 pg Normal 24.7-34.3 [facility] Comment on above: Performed By: #### I FE SERUM, SPE W INTERPRET, KAPPA ####[facility] ,#### [id number], [id number], FE and TIBC, RENAL, PTH, MG, URIC, ELIAS, CBCNO ####[place] [id number] [facility] MCV (RBC) [Entitic vol] 98.3 fL Normal 80-100 [facility] Comment on above: Performed By: #### I FE SERUM, SPE W INTERPRET, KAPPA ####[facility] ,#### [id number], [id number], FE and TIBC, RENAL, PTH, MG, URIC, ELIAS, CBCNO ####[address] Mean Corpuscular HGB Conc 32.3 g/dL Normal 32.0-35.0 [facility] Comment on above: Performed By: #### I FE SERUM, SPE W INTERPRET, KAPPA ####[facility] ,#### [id number], [id number], FE and TIBC, RENAL, PTH, MG, URIC, ELIAS, CBCNO ####[address] Platelet mean volume (Bld) [Entitic vol] 9.1 fL Normal 6.3-10.7 [facility] Comment on above: Result Comment: PERF ORMED BY:[address] [place], [place] [id number] MEDICAL DIRECTORRADHA DURAN M.D. Performed By: #### I FE SERUM, SPE W INTERPRET, KAPPA ####[facility] ,#### [id number], [id number], FE and TIBC, RENAL, PTH, MG, URIC, ELIAS, CBCNO ####[address] Platelets (Bld) [#/Vol] 229 10*3/uL Normal 150-450 [facility] Comment on above: Performed By: #### I FE SERUM, SPE W INTERPRET, KAPPA ####[facility] ,#### [id number], [id number], FE and TIBC, RENAL, PTH, MG, URIC, ELIAS, CBCNO ####[facility] [place] [id number] [facility] RBC (Bld) [#/Vol] 3.83 10*6/uL Normal 3.60-5.00 [facility] Comment on above: Performed By: #### I FE SERUM, SPE W INTERPRET, KAPPA ####[facility] ,#### [id number], [id number], FE and TIBC, RENAL, PTH, MG, URIC, ELIAS, CBCNO ####[place] [address] [place] [id number] [facility] WBC (Bld) [#/Vol] 9.2 10*3/uL Normal 3.8-11.6 [facility] Comment on above: Performed By: #### I FE SERUM, SPE W INTERPRET, KAPPA ####[facility] ,#### [id number], [id number], FE and TIBC, RENAL, PTH, MG, URIC, ELIAS, CBCNO ####[place] [address] [place] [id number] [facility] Immunofixation,Serumon 06-28 Immunofixation, Serum Comment: Normal . [facility] Comment on above: Result Comment: Pres ence of monoclonal protein is unclear at this time. Suggest repeat in 3 to 6 months if clinically indicated. Performed By: #### I FE SERUM, SPE W INTERPRET, KAPPA ####[facility] ,#### [id number], [id number], FE and TIBC, RENAL, PTH, MG, URIC, ELIAS, CBCNO ####[place] [address] [place] [id number] [facility] Immunoglobulin A, Serum 394 mg/dL Normal 64-422 [facility] Comment on above: Performed By: #### I FE SERUM, SPE W INTERPRET, KAPPA ####[facility] ,#### [id number], [id number], FE and TIBC, RENAL, PTH, MG, URIC, ELIAS, CBCNO ####[place] [address] [place] [address] [facility] Immunoglobulin G 1087 mg/dL Normal 586-1602 [facility] Comment on above: Performed By: #### I FE SERUM, SPE W INTERPRET, KAPPA ####[facility] ,#### [id number], [id number], FE and TIBC, RENAL, PTH, MG, URIC, ELIAS, CBCNO ####[place] [address] [place] [address] [facility] Immunoglobulin M, Serum 86 mg/dL Normal 26-217 [facility] Comment on above: Result Comment: Perf ormed at: - [facility] [address] [id number] [employer]: Mohan Talbert PhD, Phone: [phone] Performed By: #### I FE SERUM, SPE W INTERPRET, KAPPA ####[facility] ,#### [id number], [id number], FE and TIBC, RENAL, PTH, MG, URIC, ELIAS, CBCNO ####[place] [address] [place] [id number] [facility] Iron [Mass/volume] in Serum or PlasmaOrdered By: Leroy Ashby on 06-28-2024 Iron [Mass/Vol] Iron [Mass/volume] in Serum or Plasma 50-212 [facility] Iron and TIBC Profileon 06-13 % Iron Saturation 24.4 % Normal 20-50 [facility] Comment on above: Performed By: #### I FE SERUM, SPE W INTERPRET, KAPPA ####[facility] ,#### [id number], [id number], FE and TIBC, RENAL, PTH, MG, URIC, ELIAS, CBCNO ####[facility] [place] [address] [facility] Iron [Mass/Vol] 66 ug/dL Normal 50-212 [facility] Comment on above: Performed By: #### I FE SERUM, SPE W INTERPRET, KAPPA ####[facility] ,#### [id number], [id number], FE and TIBC, RENAL, PTH, MG, URIC, ELIAS, CBCNO ####[place] [address] [address] Total Iron Binding Capacity 270 ug/dL Normal 255-450 [facility] Comment on above: Performed By: #### I FE SERUM, SPE W INTERPRET, KAPPA ####[facility] ,#### [id number], [id number], FE and TIBC, RENAL, PTH, MG, URIC, ELIAS, CBCNO ####[place] [address] [address] Transferrin [Mass/Vol] 193 mg/dL Low 203-362 [facility] Comment on above: Performed By: #### I FE SERUM, SPE W INTERPRET, KAPPA ####[facility] ,#### [id number], [id number], FE and TIBC, RENAL, PTH, MG, URIC, ELIAS, CBCNO ####[address] Leukocytes [#/volume] correc suzi for nucleated erythrocytes in Blood by Automated counOrdered By: Leroy Ashby on 06-28-2024 WBC corrected for nucl RBC Auto (Bld) [#/Vol] Leukocytes [#/volume] corrected for nucleated erythrocytes in Blood by Automated coun 3.8-11.6 [facility] MCH Auto (RBC) [Entitic mass ]Ordered By: Leroy Ashby on 06-28-2024 MCH (RBC) [Entitic mass] MCH [Entitic mass] by Automated count 24.7-34.3 [facility] MCHC Auto (RBC) [Mass/Vol]Or dered By: Leroy Ashby on 06-28-2024 MCHC (RBC) [Mass/Vol] MCHC [Mass/volume] by Automated count 32.0-35.0 [facility] MCV Auto (RBC) [Entitic vol] Ordered By: Leroy Ashby on 06-28-2024 MCV (RBC) [Entitic vol] MCV [Entitic volume] by Automated count 80-100 [facility] Magnesiumon 06-28-2024 Magnesium [Mass/Vol] 1.9 mg/dL Normal 1.9-2.7 [facility] Comment on above: Performed By: #### I FE SERUM, SPE W INTERPRET, KAPPA ####[facility] ,#### [id number], [id number], FE and TIBC, RENAL, PTH, MG, URIC, ELIAS, CBCNO ####[facility] [id number] Magnesium [Mass/volume] in S [place] or PlasmaOrdered By: Leroy Ashby on 06-28-2024 Magnesium [Mass/Vol] Magnesium [Mass/volume] in Serum or Plasma 1.9-2.7 [facility] No Panel InformationOrdered By: Leroy Ashby on 06-28-2024 Estimated GFR (CKD-EPI) 36.998 mL/Min [facility] Creatinine Clearance (Chem N/A [facility] Protein Electrophoresis Interpret Comment . [facility] Comment on above: The SPE pattern demo nstrates elevation of regionscontaining acute phase proteins suggesting anacute/subacute inflammatory response. Some conditions inwhich this pattern has been observed include: bacterial,viral or parasitic infection; mechanical, physical orchemical trauma; and cardiac failure. The gamma globulinregion is unremarkable and evidence of monoclonal proteinis not apparent.Performed at: [address] [id number] Director: Mohan Talbert PhD, Phone: [phone] Protein Electrophoresis M-Rafiq Not observed g/dL Not Observed [facility] Protein Electrophoresis Note Comment . [facility] Comment on above: Protein electrophore sis scan will follow via computer,mail, or skimmer scoop operator delivery. Parathyrin.intact [Mass/volu me] in Serum or PlasmaOrdered By: Leroy Ashby on 06-28-2024 Parathyrin.intact [Mass/Vol] Parathyrin.intact [Mass/volume] in Serum or Plasma [facility] Parathyroid Hormone Intacton 06-28-2024 Parathyroid Hormone Intact 69.9 pg/mL Normal 12-88 [facility] Comment on above: Result Comment: PERF ORMED BY:[facility] [place], [place] [id number] MEDICAL DIRECTORRADHA DURAN M.D. Performed By: #### I FE SERUM, SPE W INTERPRET, KAPPA ####[facility] ,#### [id number], [id number], FE and TIBC, RENAL, PTH, MG, URIC, ELIAS, CBCNO ####[facility] [place] [address] [facility] Phosphate [Mass/volume] in [place] or PlasmaOrdered By: Leroy Ahsby on 06-28-2024 Phosphate [Mass/Vol] Phosphate [Mass/volume] in Serum or Plasma 2.5-4.5 [facility] Platelet mean volume Auto (B ld) [Entitic vol]Ordered By: Leroy Ashby on 06-28-2024 Platelet mean volume (Bld) [Entitic vol] Platelet mean volume [Entitic volume] in Blood by Automated count 6.3-10.7 [facility] Platelets Auto (Bld) [#/Vol] Ordered By: Leroy Akinsr on 06-28-2024 Platelets (Bld) [#/Vol] Platelets [#/volume] in Blood by Automated count 150-450 [facility] Potassium [Moles/volume] in Serum or PlasmaOrdered By: Leroy Ashby on 06-28-2024 Potassium [Moles/Vol] Potassium [Moles/volume] in Serum or Plasma 3.5-5.1 [facility] Prot Electrophoresis w/Inter christine 06-28-2024 Albumin [Mass/Vol] 3.1 g/dL Normal 2.9-4.4 [facility] Comment on above: Performed By: #### I FE SERUM, SPE W INTERPRET, KAPPA ####[facility] ,#### [id number], [id number], FE and TIBC, RENAL, PTH, MG, URIC, ELIAS, CBCNO ####[address] [address] [facility] Albumin/Globulin [Mass ratio] 0.8 {ratio} Normal 0.7-1.7 [facility] Comment on above: Performed By: #### I FE SERUM, SPE W INTERPRET, KAPPA ####[facility] ,#### [id number], [id number], FE and TIBC, RENAL, PTH, MG, URIC, ELIAS, CBCNO ####[address] [address] [facility] Tjioh-1-Sfhzvxnf 0.3 g/dL Normal 0.0-0.4 [facility] Comment on above: Performed By: #### I FE SERUM, SPE W INTERPRET, KAPPA ####[facility] ,#### [id number], [id number], FE and TIBC, RENAL, PTH, MG, URIC, ELIAS, CBCNO ####[place] [id number] [facility] Ijsbe-9-Ydwyolyh 1.3 g/dL High 0.4-1.0 [facility] Comment on above: Performed By: #### I FE SERUM, SPE W INTERPRET, KAPPA ####[facility] ,#### [id number], [id number], FE and TIBC, RENAL, PTH, MG, URIC, ELIAS, CBCNO ####[address] [address] [facility] Beta Globulin 1.1 g/dL Normal 0.7-1.3 [facility] Comment on above: Performed By: #### I FE SERUM, SPE W INTERPRET, KAPPA ####[facility] ,#### [id number], [id number], FE and TIBC, RENAL, PTH, MG, URIC, ELIAS, CBCNO ####[address] [address] [facility] Gamma Globulin 1.1 g/dL Normal 0.4-1.8 [facility] Comment on above: Performed By: #### I FE SERUM, SPE W INTERPRET, KAPPA ####[facility] ,#### [id number], [id number], FE and TIBC, RENAL, PTH, MG, URIC, ELIAS, CBCNO ####[address] Globulin (S) [Mass/Vol] 3.7 g/dL Normal 2.2-3.9 [facility] Comment on above: Performed By: #### I FE SERUM, SPE W INTERPRET, KAPPA ####[facility] ,#### [id number], [id number], FE and TIBC, RENAL, PTH, MG, URIC, ELIAS, CBCNO ####[address] M-Rafiq Not Observed Normal Not Observed [facility] Comment on above: Performed By: #### I FE SERUM, SPE W INTERPRET, KAPPA ####[facility] ,#### [id number], [id number], FE and TIBC, RENAL, PTH, MG, URIC, ELIAS, CBCNO ####[address] Protein [Mass/Vol] 6.8 g/dL Normal 6.0-8.5 [facility] Comment on above: Performed By: #### I FE SERUM, SPE W INTERPRET, KAPPA ####[facility] ,#### [id number], [id number], FE and TIBC, RENAL, PTH, MG, URIC, ELIAS, CBCNO ####[address] SPE-Interpretation Comment Normal . [facility] Comment on above: Result Comment: The SPE pattern demonstrates elevation of regions containing acute phase proteins suggesting an acute/subacute inflammatory response. Some conditions in which this pattern has been observed include: bacterial, viral or parasitic infection; mechanical, physical or chemical trauma; and cardiac failure. The gamma globulin region is unremarkable and evidence of monoclonal protein is not apparent. Performed at: [address], [place] [id number] [employer]: Mohan Talbert PhD, Phone: [phone] Performed By: #### I FE SERUM, SPE W INTERPRET, KAPPA ####[facility] ,#### [id number], [id number], FE and TIBC, RENAL, PTH, MG, URIC, ELIAS, CBCNO ####[place] [address] [address] SPE-Note Comment Normal . [facility] Comment on above: Result Comment: Prot ein electrophoresis scan will follow via computer, mail, or skimmer scoop operator delivery. Performed By: #### I FE SERUM, SPE W INTERPRET, KAPPA ####[facility] ,#### [id number], [id number], FE and TIBC, RENAL, PTH, MG, URIC, ELIAS, CBCNO ####[place] [address] [address] RBC Auto (Bld) [#/Vol]Ordere d By: Leroy Ashby on 06-28-2024 RBC (Bld) [#/Vol] Erythrocytes [#/volume] in Blood by Automated count 3.60-5.00 [facility] Renal Function Panelon 06-28 Albumin [Mass/Vol] 3.6 g/dL Normal 3.5-5.7 [facility] Comment on above: Performed By: #### I FE SERUM, SPE W INTERPRET, KAPPA ####[facility] ,#### [id number], [id number], FE and TIBC, RENAL, PTH, MG, URIC, ELIAS, CBCNO ####[place] [address] [address] Anion gap [Moles/Vol] 12.9 mmol/L Normal 6.0-15.0 [facility] Comment on above: Performed By: #### I FE SERUM, SPE W INTERPRET, KAPPA ####[facility] ,#### [id number], [id number], FE and TIBC, RENAL, PTH, MG, URIC, ELIAS, CBCNO ####[address] [address] [facility] Calcium [Mass/Vol] 9.3 mg/dL Normal 8.6-10.3 [facility] Comment on above: Performed By: #### I FE SERUM, SPE W INTERPRET, KAPPA ####[facility] ,#### [id number], [id number], FE and TIBC, RENAL, PTH, MG, URIC, ELIAS, CBCNO ####[place] [id number] [facility] Chloride [Moles/Vol] 101 mmol/L Normal 98-107 [facility] Comment on above: Performed By: #### I FE SERUM, SPE W INTERPRET, KAPPA ####[facility] ,#### [id number], [id number], FE and TIBC, RENAL, PTH, MG, URIC, ELIAS, CBCNO ####[place] [id number] [facility] CO2 [Moles/Vol] 29.5 mmol/L Normal 21.0-31.0 [facility] Comment on above: Performed By: #### I FE SERUM, SPE W INTERPRET, KAPPA ####[facility] ,#### [id number], [id number], FE and TIBC, RENAL, PTH, MG, URIC, ELIAS, CBCNO ####[place] [id number] [facility] Creatinine [Mass/Vol] 1.44 mg/dL High 0.60-1.20 [facility] Comment on above: Performed By: #### I FE SERUM, SPE W INTERPRET, KAPPA ####[facility] ,#### [id number], [id number], FE and TIBC, RENAL, PTH, MG, URIC, ELIAS, CBCNO ####[address] [address] [facility] Estimated GFR 36.998 mL/Min Normal [facility] Comment on above: Performed By: #### I FE SERUM, SPE W INTERPRET, KAPPA ####[facility] ,#### [id number], [id number], FE and TIBC, RENAL, PTH, MG, URIC, ELIAS, CBCNO ####[place] [address] [address] Glucose [Mass/Vol] 151 mg/dL High 70-100 [facility] Comment on above: Result Comment: [place] Glucose Reference Range is dependent on time and content of last meal. Glucose of more than 200 mg/dL in a nonstressed, ambulatory subject supports the diagnosis of Diabetes Mellitus. ADA recommended reference range Performed By: #### I FE SERUM, SPE W INTERPRET, KAPPA ####[facility] ,#### [id number], [id number], FE and TIBC, RENAL, PTH, MG, URIC, ELIAS, CBCNO ####[place] [address] [place] [id number] [facility] Phosphate [Mass/Vol] 3.5 mg/dL Normal 2.5-4.5 [facility] Comment on above: Performed By: #### I FE SERUM, SPE W INTERPRET, KAPPA ####[facility] ,#### [id number], [id number], FE and TIBC, RENAL, PTH, MG, URIC, ELIAS, CBCNO ####[address] Potassium [Moles/Vol] 4.4 mmol/L Normal 3.5-5.1 [facility] Comment on above: Performed By: #### I FE SERUM, SPE W INTERPRET, KAPPA ####[facility] ,#### [id number], [id number], FE and TIBC, RENAL, PTH, MG, URIC, ELIAS, CBCNO ####[place] [address] [place] [id number] [facility] Sodium [Moles/Vol] 139 mmol/L Normal 136-145 [facility] Comment on above: Performed By: #### I FE SERUM, SPE W INTERPRET, KAPPA ####[facility] ,#### [id number], [id number], FE and TIBC, RENAL, PTH, MG, URIC, ELIAS, CBCNO ####[facility] [id number] [place] [id number] [facility] Urea nitrogen [Mass/Vol] 28 mg/dL High 7-25 [facility] Comment on above: Performed By: #### I FE SERUM, SPE W INTERPRET, KAPPA ####[facility] ,#### [id number], [id number], FE and TIBC, RENAL, PTH, MG, URIC, ELIAS, CBCNO ####[facility] [id number] [place] [address] [facility] Serum free kappa light chain measurementOrdered By: Leroy Ashby on 06-28-2024 Immunoglobulin light chains.kappa.free (S) [Mass/Vol] Immunoglobulin light chains.kappa.free [Mass/volume] in Serum High 3.3-19.4 [facility] Serum globulin measurement ( mass/volume)Ordered By: Leroy Ashby on 06-28-2024 Globulin (S) [Mass/Vol] Serum globulin measurement (mass/volume) 2.2-3.9 [facility] Serum immunofixation electro phoresisOrdered By: Leroy Ashby on 06-28-2024 Serum Immunofixation Comment: . [facility] Comment on above: Presence of monoclon al protein is unclear at this time. Suggestrepeat in 3 to 6 months if clinically indicated. Serum immunoglobulin free ka ppa light chains/immunoglobulin free lambda light chainsOrdered By: Leroy Ashby on 06-28-2024 Immunoglobulin light chains.kappa.free/I mmunoglobulin light chains.lambda.free (S) [Mass ratio] Immunoglobulin light chains.kappa.free/I mmunoglobulin light chains.lambda.free [Mass High 0.26-1.65 [facility] Comment on above: Performed at: [address] [id number] Director: Mohan Talbert PhD, Phone: [phone] Serum or plasma IgA measurem ent (mass/volume)Ordered By: Leroy Akinsr on 06-28-2024 IgA [Mass/Vol] IgA [Mass/volume] in Serum or Plasma 64-422 [facility] Serum or plasma IgG measurem ent (mass/volume)Ordered By: Leroy Isma on 06-28-2024 IgG [Mass/Vol] IgG [Mass/volume] in Serum or Plasma [phone] [facility] Serum or plasma IgM measurem ent (mass/volume)Ordered By: Leroy Isma on 06-28-2024 IgM [Mass/Vol] IgM [Mass/volume] in Serum or Plasma 26-217 [facility] Comment on above: Performed at: [place] [id number] Director: Mohan Talbert PhD, Phone: [phone] Serum or plasma albumin lei urement (mass/volume)Ordered By: Leroy Ashby on 06-28-2024 Albumin [Mass/Vol] Albumin [Mass/volume] in Serum or Plasma 2.9-4.4 [facility] Serum or plasma albumin/glob ulin mass ratioOrdered By: Leroy Ashby on 06-28-2024 Albumin/Globulin [Mass ratio] Serum or plasma albumin/globulin mass ratio 0.7-1.7 [facility] Serum or plasma alpha 1 glob ulin measurement by electrophoresis (mass/volume)Ordered By: Leroy Ashby on 06-28-2024 Alpha 1 globulin Elph [Mass/Vol] Serum or plasma alpha 1 globulin measurement by electrophoresis (mass/volume) 0.0-0.4 [facility] Serum or plasma alpha 2 glob ulin measurement by electrophoresis (mass/volume)Ordered By: Leroy Ashby on 06-28-2024 Alpha 2 globulin Elph [Mass/Vol] Serum or plasma alpha 2 globulin measurement by electrophoresis (mass/volume) High 0.4-1.0 [facility] Serum or plasma anion gap de terminationOrdered By: Leroy Ashby on 06-28-2024 Anion gap [Moles/Vol] Serum or plasma anion gap determination 6.0-15.0 [facility] Serum or plasma beta globuli n measurement by electrophoresis (mass/volume)Ordered By: Leroy Ashby on 06-28-2024 Beta globulin Elph [Mass/Vol] Serum or plasma beta globulin measurement by electrophoresis (mass/volume) 0.7-1.3 [facility] Serum or plasma gamma globul in measurement by electrophoresis (mass/volume)Ordered By: Leroy Ashby on 06-28-2024 Gamma globulin Elph [Mass/Vol] Serum or plasma gamma globulin measurement by electrophoresis (mass/volume) 0.4-1.8 [facility] Serum or plasma immunoglobul in free lambda light chains measurement (mass/volume)Ordered By: Leroy Ashby on 06-28-2024 Immunoglobulin light chains.lambda.free [Mass/Vol] Immunoglobulin light chains.lambda.free [Mass/volume] in Serum or Plasma High 5.7-26.3 [facility] Serum or plasma iron binding capacity measurement (mass/volume)Ordered By: Leroy Ashby on 06-28-2024 Iron binding capacity [Mass/Vol] Iron binding capacity [Mass/volume] in Serum or Plasma 255-450 [facility] Serum or plasma iron saturat ion measurement (mass fraction)Ordered By: Leroy Ashby on 06-28-2024 Iron saturation [Mass fraction] Iron saturation [Mass Fraction] in Serum or Plasma 20-50 [facility] Serum total protein measurem entOrdered By: Leroy Ashby on 06-28-2024 Protein [Mass/Vol] Protein [Mass/volume] in Serum or Plasma 6.0-8.5 [facility] Sodium [Moles/volume] in Ser um or PlasmaOrdered By: Leroy Ashby on 06-28-2024 Sodium [Moles/Vol] Sodium [Moles/volume] in Serum or Plasma 136-145 [facility] Transferrin [Mass/volume] in Serum or PlasmaOrdered By: Leroy Isma on 06-28-2024 Transferrin [Mass/Vol] Transferrin [Mass/volume] in Serum or Plasma Low 203-362 [facility] Urate [Mass/volume] in Serum or PlasmaOrdered By: Leroy Isma on 06-28-2024 Urate [Mass/Vol] Urate [Mass/volume] in Serum or Plasma 2.3-6.6 [facility] Urea nitrogen [Mass/volume] in Serum or PlasmaOrdered By: Leroy Ashby on 06-28-2024 Urea nitrogen [Mass/Vol] Urea nitrogen [Mass/volume] in Serum or Plasma High 7-25 [facility] Uric Acidon 06-28-2024 Urate [Mass/Vol] 4.3 mg/dL Normal 2.3-6.6 [facility] Comment on above: Performed By: #### I FE SERUM, SPE W INTERPRET, KAPPA ####[facility] ,#### [id number], [id number], FE and TIBC, RENAL, PTH, MG, URIC, ELIAS, CBCNO ####[place] [id number] [address] Vit. B12/Folate Profileon Cobalamin (Vitamin B12) [Mass/Vol] 311 pg/mL Normal 180-914 [facility] Comment on above: Performed By: #### I FE SERUM, SPE W INTERPRET, KAPPA ####[facility] ,#### [id number], [id number], FE and TIBC, RENAL, PTH, MG, URIC, ELIAS, CBCNO ####[place] [address] [address] Folate 20.4 ng/mL Normal >5.9 [facility] Comment on above: Result Comment: Jess te reference range: >5.9 ng/ml The WHO technical consultation on folate and vitamin b12 deficiencies has determined that folate concentrations less than 4 ng/ml are considered deficient. Performed By: #### I FE SERUM, SPE W INTERPRET, KAPPA ####[facility] ,#### [id number], [id number], FE and TIBC, RENAL, PTH, MG, URIC, ELIAS, CBCNO ####[facility] Vitamin B12 ser/plasOrdered By: Leroy Michelledir on 06-28-2024 Cobalamin (Vitamin B12) [Mass/Vol] Vitamin B12 ser/plas 180-914 [facility] Vitamin D 25 Hydroxy Totalon 06-28-2024 Vitamin D 25 Hydroxy Total 59.6 ng/mL Normal 30-100 [facility] Comment on above: Result Comment: ROBERTO MIN D STATUS 25(OH)VITAMIN D RANGE (ng/mL) Deficient <20 Insufficient 20 to <30 Sufficient 30 to 100 Reference: Abhijeet Lao, Stacey CHATMAN, et al. Evaluation,treatment, and prevention of vitamin D deficiency; an Endocrine Society clinical practice guideline. JCEM. 2010; 96(7):191-.PERFORMED BY:[facility] [place], [place] [id number] MEDICAL DIRECTORRADHA DURAN M.D. Performed By: #### I FE SERUM, SPE W INTERPRET, KAPPA ####[facility] ,#### [id number], [id number], FE and TIBC, RENAL, PTH, MG, URIC, ELIAS, CBCNO ####[facility] [place] [address] [facility] Vitamin D+Metabolites [Mass/ volume] in Serum or PlasmaOrdered By: Leroy Ashby on 06-28-2024 Vitamin D+Metabolites [Mass/Vol] Vitamin D+Metabolites [Mass/volume] in Serum or Plasma 30-100 [facility] Comment on above: VITAMIN D STATUS 25( [place])VITAMIN D RANGE (ng/mL) Deficient <20 Insufficient 20 to <30Sufficient 30 to 100Reference: Abhijeet Lao, Stacey CHATMAN, et al. Evaluation,treatment, and prevention of vitamin D deficiency; an Endocrine Society clinical practice guideline. JCEM. 2010; 96(7):191-. XR hip LT min 2V(w/wo pelvis )*on 06-28-2024 XR hip LT min 2V(w/wo pelvis)* Normal [facility] Albumin Levelon 06-24-2024 Albumin [Mass/Vol] 3.7 g/dL Normal 3.5-5.7 [facility] Comment on above: Result Comment: PERF ORMED BY:[place] [address] [address] [place], [place] [id number] MEDICAL DIRECTORRADHA DURAN M.D. Performed By: #### C BC, ALB, BMP ####[place] [address] [place]#### FRUC ####[facility] , Albumin [Mass/volume] in Ser um or Plasma by Bromocresol green (BCG) dye binding methoOrdered By: Da Lozano on 06-24-2024 Albumin BCG dye [Mass/Vol] Albumin [Mass/volume] in Serum or Plasma by Bromocresol green (BCG) dye binding metho 3.5-5.7 [facility] Appearance of UrineOrdered B y: Da Lozano on 06-24-2024 Appearance (U) Urine appearance Abnormal Clear [facility] Bacteria [Presence] in Urine by AutomatedOrdered By: Da Lozano on 06-24-2024 Bacteria Auto Ql (U) Bacteria [Presence] in Urine by Automated High None Seen [facility] Basic Metabolic Panelon 06-13 Anion gap [Moles/Vol] 14.2 mmol/L Normal 6.0-15.0 [facility] Comment on above: Performed By: #### C BC, ALB, BMP ####[place] [address] [place]#### FRUC ####[facility] , Calcium [Mass/Vol] 9.6 mg/dL Normal 8.6-10.3 [facility] Comment on above: Performed By: #### C BC, ALB, BMP ####[facility] [place] [address] [place]#### FRUC ####[facility] , Chloride [Moles/Vol] 99 mmol/L Normal 98-107 [facility] Comment on above: Performed By: #### C BC, ALB, BMP ####[place] [address] [place]#### FRUC ####[facility] , CO2 [Moles/Vol] 32.5 mmol/L High 21.0-31.0 [facility] Comment on above: Performed By: #### C BC, ALB, BMP ####[place] [address] [address]#### FRUC ####[facility] , Creatinine [Mass/Vol] 1.62 mg/dL High 0.60-1.20 [facility] Comment on above: Performed By: #### C BC, ALB, BMP ####[place] [address] [place]#### FRUC ####[facility] , Estimated GFR 32.121 mL/Min Normal [facility] Comment on above: Performed By: #### C BC, ALB, BMP ####[place] [address] [place]#### FRUC ####[facility] , Glucose [Mass/Vol] 77 mg/dL Normal 70-100 [facility] Comment on above: Result Comment: [place] Glucose Reference Range is dependent on time and content of last meal. Glucose of more than 200 mg/dL in a nonstressed, ambulatory subject supports the diagnosis of Diabetes Mellitus. ADA recommended reference range Performed By: #### C BC, ALB, BMP ####[place] [address] [place]#### FRUC ####[facility] , Potassium [Moles/Vol] 4.7 mmol/L Normal 3.5-5.1 [facility] Comment on above: Performed By: #### C BC, ALB, BMP ####[place] [address] [place]#### FRUC ####[facility] , Sodium [Moles/Vol] 141 mmol/L Normal 136-145 [facility] Comment on above: Performed By: #### C BC, ALB, BMP ####[facility] [place] [address] [place]#### FRUC ####[facility] , Urea nitrogen [Mass/Vol] 34 mg/dL High 7-25 [facility] Comment on above: Performed By: #### C BC, ALB, BMP ####[facility] [address]#### FRUC ####[facility] , Basophils Auto (Bld) [#/Vol] Ordered By: Da Lozano on 06-24-2024 Basophils (Bld) [#/Vol] Automated basophil count 0.0-0.2 [facility] Basophils/100 WBC Auto (Bld) Ordered By: Da Lozano on 06-24-2024 Basophils/100 WBC (Bld) Automated basophil % . [facility] Bilirubin Test strip Ql (U)O rdered By: Da Lozano on 06-24-2024 Bilirubin Ql (U) Bilirubin.total [Presence] in Urine by Test strip Negative [facility] Calcium [Mass/volume] in Ser um or PlasmaOrdered By: Da Lozano on 06-24-2024 Calcium [Mass/Vol] Calcium [Mass/volume] in Serum or Plasma 8.6-10.3 [facility] Carbon dioxide, total [Moles /volume] in Serum or PlasmaOrdered By: Da Lozano on 06-24-2024 CO2 [Moles/Vol] Carbon dioxide, total [Moles/volume] in Serum or Plasma High 21.0-31.0 [facility] Chloride [Moles/volume] in [place] or PlasmaOrdered By: Da Lozano on 06-24-2024 Chloride [Moles/Vol] Chloride [Moles/volume] in Serum or Plasma 98-107 [facility] Color Auto (U)Ordered By: Yuki Lozano on 06-24-2024 Color (U) Color of Urine by Auto Abnormal Yellow [facility] Complete Blood Count Auto Di ffon 06-24-2024 Basophils (Bld) [#/Vol] 0.1 10*3/uL Normal 0.0-0.2 [facility] Comment on above: Result Comment: PERF ORMED BY:[address] [place], [place] [id number] MEDICAL DIRECTORRADHA DURAN M.D. Performed By: #### C BC, ALB, BMP ####[address]#### FRUC ####[facility] , Basophils/100 WBC (Bld) 1.2 % Normal . [facility] Comment on above: Performed By: #### C BC, ALB, BMP ####[address]#### FRUC ####[facility] , Eosinophils (Bld) [#/Vol] 0.4 10*3/uL Normal 0.0-0.45 [facility] Comment on above: Performed By: #### C BC, ALB, BMP ####[address]#### FRUC ####[facility] , Eosinophils/100 WBC (Bld) 3.9 % Normal . [facility] Comment on above: Performed By: #### C BC, ALB, BMP ####[address]#### FRUC ####[facility] , Erythrocyte distribution width (RBC) [Ratio] 15.6 % High 11.9-15.3 [facility] Comment on above: Performed By: #### C BC, ALB, BMP ####[place] [address] [place]#### FRUC ####[facility] , Hematocrit (Bld) [Volume fraction] 36.3 % Normal 34.0-46.4 [facility] Comment on above: Performed By: #### C BC, ALB, BMP ####[address] [place] [address] [place]#### FRUC ####[facility] , Hemoglobin (Bld) [Mass/Vol] 11.9 g/dL Normal 11.8-15.4 [facility] Comment on above: Performed By: #### C BC, ALB, BMP ####[address]#### FRUC ####[facility] , Lymphocytes (Bld) [#/Vol] 2.1 10*3/uL Normal 1.00-4.8 [facility] Comment on above: Performed By: #### C BC, ALB, BMP ####[address]#### FRUC ####[facility] , Lymphocytes/100 WBC (Bld) 19.4 % Normal . [facility] Comment on above: Performed By: #### C BC, ALB, BMP ####[address]#### FRUC ####[facility] , MCH (RBC) [Entitic mass] 31.9 pg Normal 24.7-34.3 [facility] Comment on above: Performed By: #### C BC, ALB, BMP ####[place] [address] [place]#### FRUC ####[facility] , MCV (RBC) [Entitic vol] 97.5 fL Normal 80-100 [facility] Comment on above: Performed By: #### C BC, ALB, BMP ####[place] [address] [place]#### FRUC ####[facility] , Mean Corpuscular HGB Conc 32.7 g/dL Normal 32.0-35.0 [facility] Comment on above: Performed By: #### C BC, ALB, BMP ####[place] [address] [place]#### FRUC ####[facility] , Monocytes (Bld) [#/Vol] 0.8 10*3/uL Normal 0.0-0.8 [facility] Comment on above: Performed By: #### C BC, ALB, BMP ####[place] [address] [place]#### FRUC ####[facility] , Monocytes/100 WBC (Bld) 7.5 % Normal . [facility] Comment on above: Performed By: #### C BC, ALB, BMP ####[address]#### FRUC ####[facility] , Neutrophils (Bld) [#/Vol] 7.4 10*3/uL Normal 1.8-7.7 [facility] Comment on above: Performed By: #### C BC, ALB, BMP ####[place] [address] [place]#### FRUC ####[facility] , Neutrophils/100 WBC (Bld) 68.0 % Normal . [facility] Comment on above: Performed By: #### C BC, ALB, BMP ####[place] [address] [place]#### FRUC ####[facility] , NRBC% 0.0 /100{WBC} Normal 0-0.5 [facility] Comment on above: Performed By: #### C BC, ALB, BMP ####[place] [address] [place]#### FRUC ####[facility] , Platelet mean volume (Bld) [Entitic vol] 9.0 fL Normal 6.3-10.7 [facility] Comment on above: Performed By: #### C BC, ALB, BMP ####[facility]#### FRUC ####[facility] , Platelets (Bld) [#/Vol] 252 10*3/uL Normal 150-450 [facility] Comment on above: Performed By: #### C BC, ALB, BMP ####[address]#### FRUC ####[facility] , RBC (Bld) [#/Vol] 3.73 10*6/uL Normal 3.60-5.00 [facility] Comment on above: Performed By: #### C BC, ALB, BMP ####[address]#### FRUC ####[facility] , WBC (Bld) [#/Vol] 10.9 10*3/uL Normal 3.8-11.6 [facility] Comment on above: Performed By: #### C BC, ALB, BMP ####[address]#### FRUC ####[facility] , Creatinine [Mass/volume] in Serum or PlasmaOrdered By: Da Lozano on 06-24-2024 Creatinine [Mass/Vol] Creatinine [Mass/volume] in Serum or Plasma High 0.60-1.20 [facility] Dipstick and Microscopicon 1 08-25-2023 Appearance (U) Turbid Critically abnormal Clear [facility] Comment on above: Order Comment: Name Collection Type:: Clean-Voided Midstream Performed By: #### A DDONUAPLUS, CUU ####[address] Bacteria,Urine 4+ High None Seen [facility] Comment on above: Order Comment: Name Collection Type:: Clean-Voided Midstream Performed By: #### A DDONUAPLUS, CUU ####[address] [place] [address] [facility] Bilirubin,Urine Negative Normal Negative [facility] Comment on above: Order Comment: Name Collection Type:: Clean-Voided Midstream Performed By: #### A DDONUAPLUS, CUU ####[address] [address] [facility] Color (U) Light-Douglas Critically abnormal Yellow [facility] Comment on above: Order Comment: Name Collection Type:: Clean-Voided Midstream Performed By: #### A DDONUAPLUS, CUU ####[address] [address] [facility] Glucose Ql (U) Normal Normal Normal [facility] Comment on above: Order Comment: Name Collection Type:: Clean-Voided Midstream Performed By: #### A DDONUAPLUS, CUU ####[address] [address] [facility] Hyaline Casts,Urine None Normal 0-8 [facility] Comment on above: Order Comment: Name Collection Type:: Clean-Voided Midstream Performed By: #### A DDONUAPLUS, CUU ####[address] [address] [facility] Ketones Ql (U) Negative Normal Negative [facility] Comment on above: Order Comment: Name Collection Type:: Clean-Voided Midstream Performed By: #### A DDONUAPLUS, CUU ####[place] [id number] [facility] Leukocyte esterase Test strip Ql (U) 4+ High Negative [facility] Comment on above: Order Comment: Name Collection Type:: Clean-Voided Midstream Performed By: #### A DDONUAPLUS, CUU ####[address] [address] [facility] Mucus,Urine Rare Normal [facility] Comment on above: Order Comment: Name Collection Type:: Clean-Voided Midstream Result Comment: PERF ORMED BY:[address] [place], [place] [phone] MEDICAL DIRECTORRADHA DURAN M.D. Performed By: #### A DDONUAPLUS, CUU ####[place] [id number] [facility] Nitrite,Urine Negative Normal Negative [facility] Comment on above: Order Comment: Name Collection Type:: Clean-Voided Midstream Performed By: #### A DDONUAPLUS, CUU ####[place] [id number] [facility] Occult Blood,Urine 1+ High Negative [facility] Comment on above: Order Comment: Name Collection Type:: Clean-Voided Midstream Result Comment: PERF ORMED BY:[address] [place], [place] [phone] MEDICAL DIRECTORRADHA DURAN M.D. Performed By: #### A DDONUAPLUS, CUU ####[address] pH (U) 6.5 [pH] Normal 5.0-9.0 [facility] Comment on above: Order Comment: Name Collection Type:: Clean-Voided Midstream Performed By: #### A DDONUAPLUS, CUU ####[place] [id number] [facility] Protein (U) [Mass/Vol] 70 mg/dL High Negative [facility] Comment on above: Order Comment: Name Collection Type:: Clean-Voided Midstream Performed By: #### A DDONUAPLUS, CUU ####[address] RBC,Urine 20 [HPF] High 0-4 [facility] Comment on above: Order Comment: Name Collection Type:: Clean-Voided Midstream Performed By: #### A DDONUAPLUS, CUU ####[place] [id number] [facility] Specificy [place],Urine 1.010 Normal 1.001-1.030 [facility] Comment on above: Order Comment: Name Collection Type:: Clean-Voided Midstream Performed By: #### A DDONUAPLUS, CUU ####[place] [address] [address] Squamous Epithelial Cell,Urine 20 [HPF] High 0-2 [facility] Comment on above: Order Comment: Name Collection Type:: Clean-Voided Midstream Performed By: #### A DDONUAPLUS, CUU ####[address] Urobilinogen,Urine Normal Normal Normal [facility] Comment on above: Order Comment: Name Collection Type:: Clean-Voided Midstream Performed By: #### A DDONUAPLUS, CUU ####[address] WBC CLUMP, Urine Many High None Seen [facility] Comment on above: Order Comment: Name Collection Type:: Clean-Voided Midstream Performed By: #### A DDONUAPLUS, CUU ####[address] WBC,Urine Innumerable High 0-4 [facility] Comment on above: Order Comment: Name Collection Type:: Clean-Voided Midstream Performed By: #### A DDONUAPLUS, CUU ####[address] Eosinophils Auto (Bld) [#/Vo l]Ordered By: Da Lozano on 06-24-2024 Eosinophils (Bld) [#/Vol] Automated eosinophil count 0.0-0.45 [facility] Eosinophils/100 WBC Auto (Bl d)Ordered By: Da Lozano on 06-24-2024 Eosinophils/100 WBC (Bld) Automated eosinophil % . [facility] Epithelial cells.squamous [# /area] in Urine sediment by Automated countOrdered By: Da Lozano on 06-24-2024 Epithelial cells.squamous Auto (Urine sed) [#/Area] Epithelial cells.squamous [#/area] in Urine sediment by Automated count High 0-2 [facility] Erythrocyte distribution wid th Auto (RBC) [Ratio]Ordered By: Da Lozano on 06-24-2024 Erythrocyte distribution width (RBC) [Ratio] Erythrocyte distribution width [Ratio] by Automated count High 11.9-15.3 [facility] Erythrocytes [#/area] in Uri ne sediment by Automated countOrdered By: Da Lozano on 06-24-2024 RBC Auto (Urine sed) [#/Area] Erythrocytes [#/area] in Urine sediment by Automated count High 0-4 [facility] Fructosamineon 06-24-2024 Fructosamine 308 umol/L High 0-285 [facility] Comment on above: Result Comment: Publ ished reference interval for apparently healthy subjects between age 20 and 60 is 205 - 285 umol/L and in a poorly controlled diabetic population is 228 - 563 umol/L with a mean of 396 umol/L. Performed at: [facility] [address] [id number] [employer]: Mohan Talbert PhD, Phone: [phone] BY:[address] [place], [place] [id number] MEDICAL DIRECTORMOJERICA DURAN M.D. Performed By: #### C BC, ALB, BMP ####[address]#### FRUC ####[facility] , Fructosamine [Moles/volume] in Serum or PlasmaOrdered By: Da Lozano on 06-24-2024 Fructosamine [Moles/Vol] Fructosamine [Moles/volume] in Serum or Plasma High 0-285 [facility] Comment on above: Published reference interval for apparently healthysubjects between age 20 and 60 is 205 - 285 umol/L and in apoorly controlled diabetic population is 228 - 563 umol/Lwith a mean of 396 umol/L.Performed at: [facility] [address] [id number] Director: oMhan Talbert PhD, Phone: [phone] Glucose [Mass/volume] in Ser um or PlasmaOrdered By: Da Lozano on 06-24-2024 Glucose [Mass/Vol] Glucose [Mass/volume] in Serum or Plasma 70-100 [facility] Comment on above: ADA recommended refe rence rangeRandom Glucose Reference Range is dependent on time and content of last meal. Glucose of more than 200 mg/dL in a nonstressed, ambulatory subject supports the diagnosis of Diabetes Mellitus. Glucose [Mass/volume] in Uri ne by Test stripOrdered By: Da Lozano on 06-24-2024 Glucose Test strip (U) [Mass/Vol] Glucose [Mass/volume] in Urine by Test strip Normal [facility] Hematocrit Auto (Bld) [Volum e fraction]Ordered By: Da Lozano on 06-24-2024 Hematocrit (Bld) [Volume fraction] Hematocrit [Volume Fraction] of Blood by Automated count 34.0-46.4 [facility] Hemoglobin Test strip Ql (U) Ordered By: Da Lozano on 06-24-2024 Hemoglobin Ql (U) Hemoglobin [Presence] in Urine by Test strip High Negative [facility] Hemoglobin [Mass/volume] in BloodOrdered By: Da Lozano on 06-24-2024 Hemoglobin (Bld) [Mass/Vol] Hemoglobin [Mass/volume] in Blood 11.8-15.4 [facility] Hyaline casts [#/area] in Ur ine sediment by Automated countOrdered By: Da Lozano on 06-24-2024 Hyaline casts Auto (Urine sed) [#/Area] Hyaline casts [#/area] in Urine sediment by Automated count 0-8 [facility] Ketones Test strip Ql (U)Ord ered By: Da Lozano on 06-24-2024 Ketones Ql (U) Ketones [Presence] in Urine by Test strip Negative [facility] Leukocyte clumps [Presence] in Urine by AutomatedOrdered By: Da Lozano on 06-24-2024 Leukocyte clumps Auto Ql (U) Leukocyte clumps [Presence] in Urine by Automated High None Seen [facility] Leukocyte esterase [Presence ] in Urine by Test stripOrdered By: Da Lozano on 06-24-2024 Leukocyte esterase Test strip Ql (U) Leukocyte esterase [Presence] in Urine by Test strip High Negative [facility] Leukocytes [#/area] in Urine sediment by Automated countOrdered By: Da Lozano on 06-24-2024 WBC Auto (Urine sed) [#/Area] Leukocytes [#/area] in Urine sediment by Automated count High 0-4 [facility] Leukocytes [#/volume] correc suzi for nucleated erythrocytes in Blood by Automated counOrdered By: Da Lozano on 06-24-2024 WBC corrected for nucl RBC Auto (Bld) [#/Vol] Leukocytes [#/volume] corrected for nucleated erythrocytes in Blood by Automated coun 3.8-11.6 [facility] Lymphocytes Auto (Bld) [#/Vo l]Ordered By: Da Lozano on 06-24-2024 Lymphocytes (Bld) [#/Vol] Lymphocytes [#/volume] in Blood by Automated count 1.00-4.8 [facility] Lymphocytes/100 WBC Auto (Bl d)Ordered By: Da Lozano on 06-24-2024 Lymphocytes/100 WBC (Bld) Lymphocytes/100 leukocytes in Blood by Automated count . [facility] MCH Auto (RBC) [Entitic mass ]Ordered By: Da Lozano on 06-24-2024 MCH (RBC) [Entitic mass] MCH [Entitic mass] by Automated count 24.7-34.3 [facility] MCHC Auto (RBC) [Mass/Vol]Or dered By: Da Lozano on 06-24-2024 MCHC (RBC) [Mass/Vol] MCHC [Mass/volume] by Automated count 32.0-35.0 [facility] MCV Auto (RBC) [Entitic vol] Ordered By: Da Lozano on 06-24-2024 MCV (RBC) [Entitic vol] MCV [Entitic volume] by Automated count 80-100 [facility] Monocytes Auto (Bld) [#/Vol] Ordered By: Da Lozano on 06-24-2024 Monocytes (Bld) [#/Vol] Automated blood monocyte count 0.0-0.8 [facility] Monocytes/100 WBC Auto (Bld) Ordered By: Da Lozano on 06-24-2024 Monocytes/100 WBC (Bld) Automated monocyte % . [facility] Mucus [Presence] in Urine by AutomatedOrdered By: Da Lozano on 06-24-2024 Mucus Auto Ql (U) Mucus [Presence] in Urine by Automated [facility] Neutrophils Auto (Bld) [#/Vo l]Ordered By: Da Lozano on 06-24-2024 Neutrophils (Bld) [#/Vol] Neutrophils [#/volume] in Blood by Automated count 1.8-7.7 [facility] Neutrophils/100 WBC Auto (Bl d)Ordered By: Da Lozano on 06-24-2024 Neutrophils/100 WBC (Bld) Automated neutrophil % . [facility] Nitrite Test strip Ql (U)Ord ered By: Da Lozano on 06-24-2024 Nitrite Ql (U) Nitrite [Presence] in Urine by Test strip Negative [facility] No Panel InformationOrdered By: Da Lozano on 06-24-2024 Estimated GFR (CKD-EPI) 32.121 mL/Min [facility] Creatinine Clearance (Chem N/A [facility] Nucleated erythrocytes [Pres ence] in Blood by Automated countOrdered By: Da Lozano on 06-24-2024 Nucleated RBC Auto Ql (Bld) Nucleated erythrocytes [Presence] in Blood by Automated count 0-0.5 [facility] PST Type and Screenon 2023 ABO and Rh group Nom (Bld) Blood group A Rh(D) positive Normal [facility] Comment on above: Order Comment: Date of Surgery: [id number] Result Comment: PERF ORMED BY:[facility] [place], [place] [phone] MEDICAL DIRECTORRADHA DURAN M.D. Platelet mean volume Auto (B ld) [Entitic vol]Ordered By: Da Lozano on 06-24-2024 Platelet mean volume (Bld) [Entitic vol] Platelet mean volume [Entitic volume] in Blood by Automated count 6.3-10.7 [facility] Platelets Auto (Bld) [#/Vol] Ordered By: Da Lozano on 06-24-2024 Platelets (Bld) [#/Vol] Platelets [#/volume] in Blood by Automated count 150-450 [facility] Potassium [Moles/volume] in Serum or PlasmaOrdered By: Da Lozano on 06-24-2024 Potassium [Moles/Vol] Potassium [Moles/volume] in Serum or Plasma 3.5-5.1 [facility] Protein Test strip (U) [Mass /Vol]Ordered By: Da Lozano on 06-24-2024 Protein (U) [Mass/Vol] Protein [Mass/volume] in Urine by Test strip High Negative [facility] RBC Auto (Bld) [#/Vol]Ordere d By: Da Lozano on 06-24-2024 RBC (Bld) [#/Vol] Erythrocytes [#/volume] in Blood by Automated count 3.60-5.00 [facility] Serum or plasma anion gap de terminationOrdered By: Da Lozano on 06-24-2024 Anion gap [Moles/Vol] Serum or plasma anion gap determination 6.0-15.0 [facility] Sodium [Moles/volume] in Ser um or PlasmaOrdered By: Da Lozano on 06-24-2024 Sodium [Moles/Vol] Sodium [Moles/volume] in Serum or Plasma 136-145 [facility] Specific gravity Test strip (U) [Rel density]Ordered By: Da Lozano on 06-24-2024 Specific gravity (U) [Rel density] Specific gravity of Urine by Test strip 1.001-1.030 [facility] Urea nitrogen [Mass/volume] in Serum or PlasmaOrdered By: Da Lozano on 06-24-2024 Urea nitrogen [Mass/Vol] Urea nitrogen [Mass/volume] in Serum or Plasma High 7-25 [facility] Urine Cultureon 06-24-2024 Bacteria identified Cx Nom (U) Normal [facility] Comment on above: Performed By: #### A DDONUAPLUS, CUU ####[facility] [address] [place] [id number] [facility] Urine cultureOrdered By: Landon Lozano on 06-24-2024 Bacteria identified Cx Nom (U) Urine culture [facility] Urobilinogen Test strip (U) [Mass/Vol]Ordered By: Da Lozano on 06-24-2024 Urobilinogen (U) [Mass/Vol] Urobilinogen [Mass/volume] in Urine by Test strip Normal [facility] WBC Auto (Bld) [#/Vol]Ordere d By: Da Lozano on 06-24-2024 WBC (Bld) [#/Vol] Leukocytes [#/volume] in Blood by Automated count 3.8-11.6 [facility] pH Test strip (U)Ordered By: Da Lozano on 06-24-2024 pH (U) pH of Urine by Test strip 5.0-9.0 [facility] Glucose Glucometer (BldC) [M ass/Vol]Ordered By: Yaniv Natarajan on 2024 Glucose [Mass/Vol] Capillary blood glucose measurement by glucometer (mass/volume) [facility] Comment on above: Random Glucose Refer ence Range is dependent on time and content of last meal. Glucose of more than 200 mg/dL in a nonstressed, ambulatory subject supports the diagnosis of Diabetes Mellitus. Glucose Poct Glucometerson 1 08-04-2023 Glucose [Mass/Vol] 247 mg/dL Normal [facility] Comment on above: Result Comment: [place] om Glucose Reference Range is dependent on time and content of last meal. Glucose of more than 200 mg/dL in a nonstressed, ambulatory subject supports the diagnosis of Diabetes Mellitus.PERFORMED BY:[place] [address] [address] [place], [place] [phone] MEDICAL DIRECTORRADHA DURAN M.D. Performed By: #### G LULS ####Point of Care testing, Commemt1 Glu2: Cleaned Meter Normal [facility] Comment on above: Performed By: #### G LULS ####Point of Care testing, Commemt2 WILL NOTIFY /LIANE Normal [facility] Comment on above: Result Comment: PERF ORMED BY:[address] [place] [place], [place] [phone] MEDICAL DIRECTORRADHA DURAN M.D. Performed By: #### G LULS ####Point of Care testing, Glucose [Mass/Vol] 174 mg/dL Normal [facility] Comment on above: Result Comment: [place] om Glucose Reference Range is dependent on time and content of last meal. Glucose of more than 200 mg/dL in a nonstressed, ambulatory subject supports the diagnosis of Diabetes Mellitus. Performed By: #### G LULS ####Point of Care testing, No Panel InformationOrdered By: Yaniv Natarajan on 2024 Bedside Glucose #[address]/rn [facility] Bedside Glucose Comment Glu2: cleaned meter [facility] XR KUBon 2024 XR KUB Normal [facility] Laboratory - Chemistry and C hemistry - challengeon 05-25-2024 Bilirubin Ql (U) Negative [facility] Glucose (U) [Mass/Vol] Negative [facility] Ketones Ql (U) Negative [facility] pH (U) 5 [pH] [facility] Specific gravity (U) [Rel density] 1.005 [facility] Urobilinogen (U) [Mass/Vol] 0.2 mg/dL [facility] Laboratory - Specimen inform ationon 05-25-2024 Appearance (U) cloudy [facility] Color (U) lightyellow [facility] Laboratory - Urinalysison Leukocyte esterase Test strip Ql (U) +++ [facility] Nitrite Ql (U) Negative [facility] Protein Ql (U) Negative [facility] No Panel Informationon 05-25 Urine Occult Blood Negative [facility] Urine Cultureon 05-25-2024 Bacteria identified Cx Nom (U) No Growth 2 Days PERFORMED BY: [facility] [address] [place] [address] PATHOLOGIST SALES TECHNICIAN HOME THEATER RADHA DURAN M.D. Normal [facility] Comment on above: Performed By: #### C UU ####[facility] [address] [place] [address] [facility] Urine cultureOrdered By: Sulema Best on 05-25-2024 Bacteria identified Cx Nom (U) Urine culture [facility] Basic Metabolic Panelon 11-0 Anion gap [Moles/Vol] 11.4 mmol/L Normal 6.0-15.0 [facility] Comment on above: Performed By: #### P T, BMP, PTT, CBC ####[place] [id number] [facility] Calcium [Mass/Vol] 10.1 mg/dL Normal 8.6-10.3 [facility] Comment on above: Result Comment: PERF ORMED BY:[address] [place], [place] [phone] MEDICAL DIRECTORCORAL BECKETT M.D. Performed By: #### P T, BMP, PTT, CBC ####[place] [id number] [facility] Chloride [Moles/Vol] 98 mmol/L Normal 98-107 [facility] Comment on above: Performed By: #### P T, BMP, PTT, CBC ####[place] [id number] [facility] CO2 [Moles/Vol] 30.4 mmol/L Normal 21.0-31.0 [facility] Comment on above: Performed By: #### P T, BMP, PTT, CBC ####[place] [id number] [facility] Creatinine [Mass/Vol] 1.77 mg/dL High 0.60-1.20 [facility] Comment on above: Performed By: #### P T, BMP, PTT, CBC ####[place] [id number] [facility] GFR/1.73 sq M.predicted MDRD (S/P/Bld) [Vol rate/Area] 29.063 mL/min/{1.73_m2} Normal [facility] Comment on above: Performed By: #### P T, BMP, PTT, CBC ####[place] [id number] [facility] Glucose [Mass/Vol] 252 mg/dL High 70-100 [facility] Comment on above: Result Comment: [place] Glucose Reference Range is dependent on time and content of last meal. Glucose of more than 200 mg/dL in a nonstressed, ambulatory subject supports the diagnosis of Diabetes Mellitus. ADA recommended reference range Performed By: #### P T, BMP, PTT, CBC ####[facility] Potassium [Moles/Vol] 4.8 mmol/L Normal 3.5-5.1 [facility] Comment on above: Performed By: #### P T, BMP, PTT, CBC ####[place] [address] Sodium [Moles/Vol] 135 mmol/L Low 136-145 [facility] Comment on above: Performed By: #### P T, BMP, PTT, CBC ####[place] [address] Urea nitrogen [Mass/Vol] 45 mg/dL High 7-25 [facility] Comment on above: Performed By: #### P T, BMP, PTT, CBC ####[address] Basophils Auto (Bld) [#/Vol] Ordered By: Yaniv Natarajan on 05-21-2024 Basophils (Bld) [#/Vol] Automated basophil count 0.0-0.2 [facility] Basophils/100 WBC Auto (Bld) Ordered By: Yaniv Natarajan on 05-21-2024 Basophils/100 WBC (Bld) Automated basophil % . [facility] Calcium [Mass/volume] in Ser um or PlasmaOrdered By: Yaniv Natarajan on 05-21-2024 Calcium [Mass/Vol] Calcium [Mass/volume] in Serum or Plasma 8.6-10.3 [facility] Carbon dioxide, total [Moles /volume] in Serum or PlasmaOrdered By: Yaniv Natarajan on 05-21-2024 CO2 [Moles/Vol] Carbon dioxide, total [Moles/volume] in Serum or Plasma 21.0-31.0 [facility] Chloride [Moles/volume] in [place] or PlasmaOrdered By: Yaniv Natarajan on 05-21-2024 Chloride [Moles/Vol] Chloride [Moles/volume] in Serum or Plasma 98-107 [facility] Complete Blood Count Auto Di ffon 05-21-2024 Basophils (Bld) [#/Vol] 0.1 10*3/uL Normal 0.0-0.2 [facility] Comment on above: Result Comment: PERF ORMED BY:[address] [place], [place] [phone] MEDICAL DIRECTORCORAL BECKETT M.D. Performed By: #### P T, BMP, PTT, CBC ####[address] Basophils/100 WBC (Bld) 0.8 % Normal . [facility] Comment on above: Performed By: #### P T, BMP, PTT, CBC ####[address] Eosinophils (Bld) [#/Vol] 0.3 10*3/uL Normal 0.0-0.45 [facility] Comment on above: Performed By: #### P T, BMP, PTT, CBC ####[address] Eosinophils/100 WBC (Bld) 2.4 % Normal . [facility] Comment on above: Performed By: #### P T, BMP, PTT, CBC ####[address] Erythrocyte distribution width (RBC) [Ratio] 16.1 % High 11.9-15.3 [facility] Comment on above: Performed By: #### P T, BMP, PTT, CBC ####[address] Hematocrit (Bld) [Volume fraction] 36.6 % Normal 34.0-46.4 [facility] Comment on above: Performed By: #### P T, BMP, PTT, CBC ####[address] Hemoglobin (Bld) [Mass/Vol] 12.0 g/dL Normal 11.8-15.4 [facility] Comment on above: Performed By: #### P T, BMP, PTT, CBC ####[address] Lymphocytes (Bld) [#/Vol] 1.8 10*3/uL Normal 1.00-4.8 [facility] Comment on above: Performed By: #### P T, BMP, PTT, CBC ####[address] Lymphocytes/100 WBC (Bld) 14.2 % Normal . [facility] Comment on above: Performed By: #### P T, BMP, PTT, CBC ####[address] MCH (RBC) [Entitic mass] 32.1 pg Normal 24.7-34.3 [facility] Comment on above: Performed By: #### P T, BMP, PTT, CBC ####[address] MCV (RBC) [Entitic vol] 98.0 fL Normal 80-100 [facility] Comment on above: Performed By: #### P T, BMP, PTT, CBC ####[address] Mean Corpuscular HGB Conc 32.7 g/dL Normal 32.0-35.0 [facility] Comment on above: Performed By: #### P T, BMP, PTT, CBC ####[address] Monocytes (Bld) [#/Vol] 0.8 10*3/uL Normal 0.0-0.8 [facility] Comment on above: Performed By: #### P T, BMP, PTT, CBC ####[address] Monocytes/100 WBC (Bld) 6.4 % Normal . [facility] Comment on above: Performed By: #### P T, BMP, PTT, CBC ####[address] Neutrophils (Bld) [#/Vol] 9.7 10*3/uL High 1.8-7.7 [facility] Comment on above: Performed By: #### P T, BMP, PTT, CBC ####[address] Neutrophils/100 WBC (Bld) 76.2 % Normal . [facility] Comment on above: Performed By: #### P T, BMP, PTT, CBC ####[address] NRBC% 0.1 /100{WBC} Normal 0-0.5 [facility] Comment on above: Performed By: #### P T, BMP, PTT, CBC ####[address] Platelet mean volume (Bld) [Entitic vol] 9.3 fL Normal 6.3-10.7 [facility] Comment on above: Performed By: #### P T, BMP, PTT, CBC ####[address] Platelets (Bld) [#/Vol] 216 10*3/uL Normal 150-450 [facility] Comment on above: Performed By: #### P T, BMP, PTT, CBC ####[address] RBC (Bld) [#/Vol] 3.73 10*6/uL Normal 3.60-5.00 [facility] Comment on above: Performed By: #### P T, BMP, PTT, CBC ####[address] WBC (Bld) [#/Vol] 12.8 10*3/uL High 3.8-11.6 [facility] Comment on above: Performed By: #### P T, BMP, PTT, CBC ####[address] Creatinine [Mass/volume] in Serum or PlasmaOrdered By: Yaniv Natarajan on 05-21-2024 Creatinine [Mass/Vol] Creatinine [Mass/volume] in Serum or Plasma High 0.60-1.20 [facility] Eosinophils Auto (Bld) [#/Vo l]Ordered By: Yaniv Natarajan on 05-21-2024 Eosinophils (Bld) [#/Vol] Automated eosinophil count 0.0-0.45 [facility] Eosinophils/100 WBC Auto (Bl d)Ordered By: Yaniv Natarajan on 05-21-2024 Eosinophils/100 WBC (Bld) Automated eosinophil % . [facility] Erythrocyte distribution wid th Auto (RBC) [Ratio]Ordered By: Yaniv Natarajan on 05-21-2024 Erythrocyte distribution width (RBC) [Ratio] Erythrocyte distribution width [Ratio] by Automated count High 11.9-15.3 [facility] Glucose [Mass/volume] in Ser um or PlasmaOrdered By: Yaniv Natarajan on 05-21-2024 Glucose [Mass/Vol] Glucose [Mass/volume] in Serum or Plasma High 70-100 [facility] Comment on above: ADA recommended refe rence rangeRandom Glucose Reference Range is dependent on time and content of last meal. Glucose of more than 200 mg/dL in a nonstressed, ambulatory subject supports the diagnosis of Diabetes Mellitus. Hematocrit Auto (Bld) [Volum e fraction]Ordered By: Yaniv Natarajan on 05-21-2024 Hematocrit (Bld) [Volume fraction] Hematocrit [Volume Fraction] of Blood by Automated count 34.0-46.4 [facility] Hemoglobin [Mass/volume] in BloodOrdered By: Yaniv Natarajan on 05-21-2024 Hemoglobin (Bld) [Mass/Vol] Hemoglobin [Mass/volume] in Blood 11.8-15.4 [facility] INR in Platelet poor plasma by Coagulation assayOrdered By: Yaniv Natarajan on 05-21-2024 INR Coag (PPP) [Relative time] INR in Platelet poor plasma by Coagulation assay [facility] Comment on above: INR Therapeutic Rang e [...] in Blood by Automated coun High 3.8-11.6 [facility] Lymphocytes Auto (Bld) [#/Vo l]Ordered By: Yaniv Natarajan on 05-21-2024 Lymphocytes (Bld) [#/Vol] Lymphocytes [#/volume] in Blood by Automated count 1.00-4.8 [facility] Lymphocytes/100 WBC Auto (Bl d)Ordered By: Yaniv Natarajan on 05-21-2024 Lymphocytes/100 WBC (Bld) Lymphocytes/100 leukocytes in Blood by Automated count . [facility] MCH Auto (RBC) [Entitic mass ]Ordered By: Yaniv Natarajan on 05-21-2024 MCH (RBC) [Entitic mass] MCH [Entitic mass] by Automated count 24.7-34.3 [facility] MCHC Auto (RBC) [Mass/Vol]Or dered By: Yaniv Natarajan on 05-21-2024 MCHC (RBC) [Mass/Vol] MCHC [Mass/volume] by Automated count 32.0-35.0 [facility] MCV Auto (RBC) [Entitic vol] Ordered By: Yaniv Natarajan on 05-21-2024 MCV (RBC) [Entitic vol] MCV [Entitic volume] by Automated count 80-100 [facility] Monocytes Auto (Bld) [#/Vol] Ordered By: Yaniv Natarajan on 05-21-2024 Monocytes (Bld) [#/Vol] Automated blood monocyte count 0.0-0.8 [facility] Monocytes/100 WBC Auto (Bld) Ordered By: Yaniv Natarajan on 05-21-2024 Monocytes/100 WBC (Bld) Automated monocyte % . [facility] Neutrophils Auto (Bld) [#/Vo l]Ordered By: Yaniv Natarajan on 05-21-2024 Neutrophils (Bld) [#/Vol] Neutrophils [#/volume] in Blood by Automated count High 1.8-7.7 [facility] Neutrophils/100 WBC Auto (Bl d)Ordered By: Yaniv Natarajan on 05-21-2024 Neutrophils/100 WBC (Bld) Automated neutrophil % . [facility] No Panel InformationOrdered By: Yaniv Natarajan on 05-21-2024 Estimated GFR (CKD-EPI) 29.063 mL/Min [facility] Creatinine Clearance (Chem N/A [facility] Nucleated erythrocytes [Pres ence] in Blood by Automated countOrdered By: Yaniv Natarajan on 05-21-2024 Nucleated RBC Auto Ql (Bld) Nucleated erythrocytes [Presence] in Blood by Automated count 0-0.5 [facility] Partial Thromboplastin Timeo n 05-21-2024 aPTT Coag (Bld) [Time] 29.9 s Normal 25.1-36.5 [facility] Comment on above: Result Comment: A he matocrit value greater than 55% may lead to inaccurate results in coagulation testing. Patients having hematocrit values >55% require a special collection tube for coagulation studies. Please contact the laboratory at [phone] for redraw instructions.PERFORMED BY:[facility] [place], [place] [phone] MEDICAL DIRECTORCORAL BECKETT M.D. Performed By: #### P T, BMP, PTT, CBC ####[facility] [place] [address] [facility] Platelet mean volume Auto (B ld) [Entitic vol]Ordered By: Yaniv Natarajan on 05-21-2024 Platelet mean volume (Bld) [Entitic vol] Platelet mean volume [Entitic volume] in Blood by Automated count 6.3-10.7 [facility] Platelets Auto (Bld) [#/Vol] Ordered By: Yaniv Natarajan on 05-21-2024 Platelets (Bld) [#/Vol] Platelets [#/volume] in Blood by Automated count 150-450 [facility] Potassium [Moles/volume] in Serum or PlasmaOrdered By: Yaniv Natarajan on 05-21-2024 Potassium [Moles/Vol] Potassium [Moles/volume] in Serum or Plasma 3.5-5.1 [facility] Prothrombin Time INRon 05-21 INR Coag (PPP) [Relative time] 1.0 {INR} Normal [facility] Comment on above: Result [...] By: #### P T, BMP, PTT, CBC ####[facility] [address] [place] [id number] [facility] PT Coag (PPP) [Time] 11.1 s Normal 9.0-12.9 [facility] Comment on above: Result Comment: A he matocrit value greater than 55% may lead to inaccurate results in coagulation testing. Patients having hematocrit values >55% require a special collection tube for coagulation studies. Please contact the laboratory at [phone] for redraw instructions. Performed By: #### P T, BMP, PTT, CBC ####[facility] [address] [place] [id number] [facility] Prothrombin time (PT)Ordered By: Yaniv Natarajan on 05-21-2024 PT Coag (PPP) [Time] Prothrombin time (PT) 9.0-12.9 [facility] Comment on above: A hematocrit value g reater than 55% may lead to inaccurate results in coagulation testing. Patients having hematocrit values >55% require a special collection tube for coagulation studies. Please contact the laboratory at [phone] for redraw instructions. RBC Auto (Bld) [#/Vol]Ordere d By: Yaniv Natarajan on 05-21-2024 RBC (Bld) [#/Vol] Erythrocytes [#/volume] in Blood by Automated count 3.60-5.00 [facility] Serum or plasma anion gap de terminationOrdered By: Yaniv Natarajan on 05-21-2024 Anion gap [Moles/Vol] Serum or plasma anion gap determination 6.0-15.0 [facility] Sodium [Moles/volume] in Ser um or PlasmaOrdered By: Yaniv Natarajan on 05-21-2024 Sodium [Moles/Vol] Sodium [Moles/volume] in Serum or Plasma Low 136-145 [facility] Urea nitrogen [Mass/volume] in Serum or PlasmaOrdered By: Yaniv Natarajan on 05-21-2024 Urea nitrogen [Mass/Vol] Urea nitrogen [Mass/volume] in Serum or Plasma High 7-25 [facility] WBC Auto (Bld) [#/Vol]Ordere d By: Yaniv Natarajan on 05-21-2024 WBC (Bld) [#/Vol] Leukocytes [#/volume] in Blood by Automated count High 3.8-11.6 [facility] aPTT in Platelet poor plasma by Coagulation assayOrdered By: Yaniv Natarajan on 05-21-2024 aPTT Coag (PPP) [Time] Activated partial thromboplastin time (aPTT) in platelet poor plasma by coagulation a 25.1-36.5 [facility] Comment on above: A hematocrit value g reater than 55% may lead to inaccurate results in coagulation testing. Patients having hematocrit values >55% require a special collection tube for coagulation studies. Please contact the laboratory at [phone] for redraw instructions. Laboratory - Chemistry and C hemistry - challengeon 04-07-2024 Bilirubin Ql (U) Negative [facility] Glucose (U) [Mass/Vol] Negative [facility] Ketones Ql (U) Negative [facility] pH (U) 7.0 [pH] [facility] Specific gravity (U) [Rel density] 1.010 [facility] Urobilinogen (U) [Mass/Vol] 0.2 mg/dL [facility] Laboratory - Specimen inform ationon 04-07-2024 Appearance (U) cloudy [facility] Color (U) yellow [facility] Laboratory - Urinalysison Leukocyte esterase Test strip Ql (U) large [facility] Nitrite Ql (U) Positive [facility] Protein Ql (U) 30 [facility] No Panel Informationon 04-07 Urine Occult Blood small [facility] Urine Cultureon 04-07-2024 Bacteria identified Cx Nom (U) Normal [facility] Comment on above: Performed By: #### C UU ####[facility] [address] [place] [address] [facility] Urine cultureOrdered By: Sulema Best on 04-07-2024 Bacteria identified Cx Nom (U) Urine culture [facility] Immunofixation for Urineon 0 03-19-2024 Interpretation Immunofixation (U) [Interp] Comment . [facility] Comment on above: No monoclonality det ected.Performed at: [facility] StreetAsc[facility] [place] [address] [id number] Director: Mohan Talbert PhD, Phone: [employer] Anytime | Anywhere Interpretation Immunofixation (U) [Interp] Immunofixation for Urine . [facility] Comment on above: No monoclonality det ected.Performed at: [facility] [place] [address] [id number] Director: Mohan Talbert PhD, Phone: [phone] Laboratory - Chemistry and C hemistry - challengeon 03-19-2024 Bilirubin Ql (U) Negative NEGATIVE [facility] Glucose (U) [Mass/Vol] Negative NEGATIVE [facility] Ketones Ql (U) Negative NEGATIVE [facility] pH (U) 6.0 [pH] 5.0-9.0 [facility] Specific gravity (U) [Rel density] 1.010 1.005-1.025 [facility] Urobilinogen Qn (U) 0.2 {Joe'U}/dL 0.2-1.0 [facility] Laboratory - Specimen inform ationon 03-19-2024 Appearance (U) SL CLOUDY CLEAR [facility] Color (U) YELLOW YELLOW [facility] - Urinalysison Leukocyte esterase Test strip Ql (U) LARGE Abnormal NEGATIVE [facility] Mucus Ql (Urine sed) NONE SEEN NONE SEEN [facility] Nitrite Ql (U) Positive Abnormal NEGATIVE [facility] Protein (U) [Mass/Vol] 77.9 mg/dL High <=11.9 [facility] Protein Ql (U) 100 mg/dL Abnormal NEG/TRACE [facility] No Panel Informationon 03-19 Urine Bacteria MODERATE #/HPF Abnormal NONE SEEN [facility] Urine Occult Blood SMALL Abnormal NEGATIVE [facility] Urine Other Casts NONE SEEN #/LPF NONE SEEN [facility] Urine Other Crystals None Seen #/HPF None Seen [facility] Urine Random Creatinine 25.17 mg/dL 20.00-300.00 [facility] Urine RBC 2-5 #/HPF Abnormal 0-2 [facility] Urine Squamous Epithelial Cells FEW #/LPF Abnormal NONE/RARE [facility] Urine WBC >100 #/HPF Abnormal NONE SEEN [facility] Urine protein/creatinine rat ioon 03-19-2024 Protein/Creatinine (U) [Ratio] 3.09 [facility] Protein/Creatinine (U) [Ratio] Urine protein/creatinine ratio [facility] Albumin [Mass/volume] in Ser um or Plasmaon 03-17-2024 Albumin [Mass/Vol] 3.2 g/dL 2.9-4.4 [facility] Albumin [Mass/Vol] Albumin [Mass/volume] in Serum or Plasma 2.9-4.4 [facility] Erythrocyte distribution wid th Auto (RBC) [Ratio]on 03-17-2024 Erythrocyte distribution width (RBC) [Ratio] 15.3 % High 11.0-15.0 [facility] Erythrocyte distribution width (RBC) [Ratio] Erythrocyte distribution width [Ratio] by Automated count High 11.0-15.0 [facility] Estimated glomerular filtrat ion rate (GFR) non- Americanon 03-17-2024 GFR/1.73 sq M.predicted among non-blacks MDRD (S/P/Bld) [Vol rate/Area] 29 mL/min/{1.73_m2} Low >=60 [facility] GFR/1.73 sq M.predicted among non-blacks MDRD (S/P/Bld) [Vol rate/Area] Estimated glomerular filtration rate (GFR) non- Low >=60 [facility] Hematocrit Auto (Bld) [Volum e fraction]on 03-17-2024 Hematocrit (Bld) [Volume fraction] 37.9 % 36.0-48.0 [facility] Hematocrit (Bld) [Volume fraction] Hematocrit [Volume Fraction] of Blood by Automated count 36.0-48.0 [facility] Hemoglobin [Mass/volume] in Bloodon 03-17-2024 Hemoglobin (Bld) [Mass/Vol] 11.6 g/dL Low 12.0-16.0 [facility] Hemoglobin (Bld) [Mass/Vol] Hemoglobin [Mass/volume] in Blood Low 12.0-16.0 [facility] IgA [Mass/volume] in Serum o r Plasmaon 03-17-2024 IgA [Mass/Vol] 366 mg/dL 64-422 [facility] IgA [Mass/Vol] IgA [Mass/volume] in Serum or Plasma 64-422 [facility] IgG [Mass/volume] in Serum o r Plasmaon 03-17-2024 IgG [Mass/Vol] 1043 mg/dL 586-1602 [facility] IgG [Mass/Vol] IgG [Mass/volume] in Serum or Plasma 586-1602 [facility] IgM [Mass/volume] in Serum o r Plasmaon 03-17-2024 IgM [Mass/Vol] 87 mg/dL 26-217 [facility] IgM [Mass/Vol] IgM [Mass/volume] in Serum or Plasma 26-217 [facility] Immunoglobulin light chains. kappa.free [Mass/volume] in Serumon 03-17-2024 Immunoglobulin light chains.kappa.free (S) [Mass/Vol] 112.4 mg/L Abnormal 3.3-19.4 [facility] Immunoglobulin light chains.kappa.free (S) [Mass/Vol] Immunoglobulin light chains.kappa.free [Mass/volume] in Serum Abnormal 3.3-19.4 [facility] Immunoglobulin light chains. kappa.free/Immunoglobulin light chains.lambda.free [Radha 03-17-2024 Immunoglobulin light chains.kappa.free/I mmunoglobulin light chains.lambda.free (S) [Mass ratio] 1.84 Abnormal 0.26-1.65 [facility] Comment on above: Performed at: [address] [id number] Director: Mohan Talbert PhD, Phone: [phone] Immunoglobulin light chains.kappa.free/I mmunoglobulin light chains.lambda.free (S) [Mass ratio] Immunoglobulin light chains.kappa.free/I mmunoglobulin light chains.lambda.free [Mass Abnormal 0.26-1.65 [facility] Comment on above: Performed at: [facility] [place] [id number] Director: Mohan Talbert PhD, Phone: [phone] Immunoglobulin light chains. lambda.free [Mass/volume] in Serum or Plasmaon 03-17-2024 Immunoglobulin light chains.lambda.free [Mass/Vol] 61.0 mg/L Abnormal 5.7-26.3 [facility] Immunoglobulin light chains.lambda.free [Mass/Vol] Immunoglobulin light chains.lambda.free [Mass/volume] in Serum or Plasma Abnormal 5.7-26.3 [facility] Iron binding capacity [Mass/ volume] in Serum or Plasmaon 03-17-2024 Iron binding capacity [Mass/Vol] 256.0 ug/dL 250.0-450.0 [facility] Iron binding capacity [Mass/Vol] Iron binding capacity [Mass/volume] in Serum or Plasma 250.0-450.0 [facility] Iron saturation [Mass Fracti on] in Serum or Plasmaon 03-17-2024 Iron saturation [Mass fraction] 25.4 % [facility] Iron saturation [Mass fraction] Iron saturation [Mass Fraction] in Serum or Plasma [facility] - Chemistry and C hemistry - challengeon 03-17-2024 Albumin [Mass/Vol] 3.1 g/dL Low 3.4-5.0 [facility] Calcium [Mass/Vol] 9.8 mg/dL 8.5-10.1 [facility] Chloride [Moles/Vol] 100 mmol/L 98-107 [facility] CO2 [Moles/Vol] 29.6 mmol/L 21.0-32.0 [facility] Cobalamin (Vitamin B12) [Mass/Vol] 456 pg/mL 232-1245 [facility] Comment on above: Performed at: [facility] [place] [address] [id number] Director: Mohan Talbert PhD, Phone: [phone] Creatinine [Mass/Vol] 1.71 mg/dL High 0.55-1.02 [facility] Ferritin [Mass/Vol] 174.0 ng/mL 8.0-252.0 [facility] GFR/1.73 sq M.predicted MDRD (S/P/Bld) [Vol rate/Area] 35 mL/min/{1.73_m2} Low >=60 [facility] Glucose [Mass/Vol] 137 mg/dL High 74-106 [facility] Iron [Mass/Vol] 65.0 ug/dL 50.0-170.0 [facility] Magnesium [Mass/Vol] 1.9 mg/dL 1.8-2.4 [facility] Potassium [Moles/Vol] 4.1 mmol/L 3.5-5.1 [facility] Sodium [Moles/Vol] 140 mmol/L 136-145 [facility] Urate [Mass/Vol] 4.6 mg/dL 2.6-6.0 [facility] Urea nitrogen [Mass/Vol] 37.0 mg/dL High 7.0-18.0 [facility] Urea nitrogen/Creatinine [Mass ratio] 21.6 mg/mg [facility] Leukocytes [#/volume] correc suzi for nucleated erythrocytes in Blood by Automated counon 03-17-2024 WBC corrected for nucl RBC Auto (Bld) [#/Vol] 9.1 10 3/uL 4.0-11.0 [facility] WBC corrected for nucl RBC Auto (Bld) [#/Vol] Leukocytes [#/volume] corrected for nucleated erythrocytes in Blood by Automated coun 4.0-11.0 [facility] MCH Auto (RBC) [Entitic mass ]on 03-17-2024 MCH (RBC) [Entitic mass] 31.2 pg 26.7-34.0 [facility] MCH (RBC) [Entitic mass] MCH [Entitic mass] by Automated count 26.7-34.0 [facility] MCHC Auto (RBC) [Mass/Vol]on 03-17-2024 MCHC (RBC) [Mass/Vol] 30.6 g/dL 29.9-35.2 [facility] MCHC (RBC) [Mass/Vol] MCHC [Mass/volume] by Automated count 29.9-35.2 [facility] MCV Auto (RBC) [Entitic vol] on 03-17-2024 MCV (RBC) [Entitic vol] 101.9 fL High 81.0-99.0 [facility] MCV (RBC) [Entitic vol] MCV [Entitic volume] by Automated count High 81.0-99.0 [facility] No Panel Informationon 03-17 25-Hydroxy Vitamin D Total 91.3 ng/mL [facility] Comment on above: <20 ng/mL Vit D defi cient20-<30 ng/mL Vit D qapbxzlyzhbt05-866 ng/mL Vit D sufficient>100 ng/mL Potential Toxicity Folate 19.10 ng/mL 8.60-58.90 [facility] Parathyroid Hormone (Intact) 28 pg/mL 15-65 [facility] Comment on above: Performed at: [employer] [facility] [employer] [address] [id number] Director: Mohan Talbert PhD, Phone: [phone] Phosphorus Level 3.6 mg/dL 2.6-4.7 [facility] Protein Electrophoresis M-Rafiq Not Observed g/dL Not Observed [facility] Protein Electrophoresis Note Comment . [facility] Comment on above: Protein electrophore sis scan will follow via computer,mail, or skimmer scoop operator delivery. Platelet mean volume Auto (B ld) [Entitic vol]on 03-17-2024 Platelet mean volume (Bld) [Entitic vol] 11.5 fL 9.5-13.5 [facility] Platelet mean volume (Bld) [Entitic vol] Platelet mean volume [Entitic volume] in Blood by Automated count 9.5-13.5 [facility] Platelets Auto (Bld) [#/Vol] on 03-17-2024 Platelets (Bld) [#/Vol] 232 10 3/uL 150-450 [facility] Platelets (Bld) [#/Vol] Platelets [#/volume] in Blood by Automated count 150-450 [facility] Protein [Mass/volume] in Ser um or Plasmaon 03-17-2024 Protein [Mass/Vol] 6.9 g/dL 6.0-8.5 [facility] Protein [Mass/Vol] Protein [Mass/volume] in Serum or Plasma 6.0-8.5 [facility] RBC Auto (Bld) [#/Vol]on RBC (Bld) [#/Vol] 3.72 10 6/uL Low 4.20-5.40 [facility] RBC (Bld) [#/Vol] Erythrocytes [#/volume] in Blood by Automated count Low 4.20-5.40 [facility] Serum globulin measurement ( mass/volume)on 03-17-2024 Globulin (S) [Mass/Vol] 3.7 g/dL 2.2-3.9 [facility] Globulin (S) [Mass/Vol] Serum globulin measurement (mass/volume) 2.2-3.9 [facility] Serum or plasma albumin/glob ulin mass ratioon 03-17-2024 Albumin/Globulin [Mass ratio] 0.9 {ratio} 0.7-1.7 [facility] Albumin/Globulin [Mass ratio] Serum or plasma albumin/globulin mass ratio 0.7-1.7 [facility] Serum or plasma alpha 1 glob ulin measurement by electrophoresis (mass/volume)on 03-17-2024 Alpha 1 globulin Elph [Mass/Vol] 0.3 g/dL 0.0-0.4 [facility] Alpha 1 globulin Elph [Mass/Vol] Serum or plasma alpha 1 globulin measurement by electrophoresis (mass/volume) 0.0-0.4 [facility] Serum or plasma alpha 2 glob ulin measurement by electrophoresis (mass/volume)on 03-17-2024 Alpha 2 globulin Elph [Mass/Vol] 1.3 g/dL Abnormal 0.4-1.0 [facility] Alpha 2 globulin Elph [Mass/Vol] Serum or plasma alpha 2 globulin measurement by electrophoresis (mass/volume) Abnormal 0.4-1.0 [facility] Serum or plasma anion gap de terminationon 03-17-2024 Anion gap [Moles/Vol] 14.5 mmol/L [facility] Anion gap [Moles/Vol] Serum or plasma anion gap determination [facility] Serum or plasma beta globuli n measurement by electrophoresis (mass/volume)on 03-17-2024 Beta globulin Elph [Mass/Vol] 1.0 g/dL 0.7-1.3 [facility] Beta globulin Elph [Mass/Vol] Serum or plasma beta globulin measurement by electrophoresis (mass/volume) 0.7-1.3 [facility] Serum or plasma gamma globul in measurement by electrophoresis (mass/volume)on 03-17-2024 Gamma globulin Elph [Mass/Vol] 1.1 g/dL 0.4-1.8 [facility] Gamma globulin Elph [Mass/Vol] Serum or plasma gamma globulin measurement by electrophoresis (mass/volume) 0.4-1.8 [facility] Serum or plasma immunoelectr ophoresis interpretationon 03-17-2024 Interpretation IEP [Interp] Comment: . [facility] Comment on above: Presence of monoclon al protein is unclear at this time. Suggestrepeat in 3 to 6 months if clinically indicated. Interpretation IEP [Interp] Serum or plasma immunoelectrophores is interpretation . [facility] Comment on above: Presence of monoclon al protein is unclear at this time. Suggestrepeat in 3 to 6 months if clinically indicated. Troponin 1 Hr.on 03-17-2024 Troponin HS 70.30 pg/mL Abnormal 10.10-27.10 [facility] Comment on above: Order Comment: 183 Result Comment: Crit ical Result Verified by Previous Result Called to Teo Patrick RN @1833 02/26/2024 BCS The 95% CI (Confidence Interval) PPV (Positive Predictive Value) for myocardial infarction in females is 38 pg/mL, in males 51 pg/mL. The results should be used in conjunction with clinical conditions of myocardial infarction. ([employer] High Sensitivity Troponin I Instructions For Use, [place], February 2018) Critical Result Verified by Previous Result The 95% CI (Confidence Interval) PPV (Positive Predictive Value) for myocardial infarction in females is 38 pg/mL, in males 51 pg/mL. The results should be used in conjunction with clinical conditions of myocardial infarction. ([employer] High Sensitivity Troponin I Instructions For Use, [place], February 2018) Performed By: #### 1 [id number] #### [facility] [address] [place] [address] Coding Queryon 03-09-2024 Coding Query Coding Query -- From: Giovana Keith RN To: Allison CHANCE MD; Cc: Tierra Elizalde; Sent: 03/09/2024 10:41:21 EDT [...] suprapubic pain. She was subsequently admitted to [facility] with acute metabolic encephalopathy secondary to [...] expected. Thank you! Giovana [phone] -- From: Allison CHANCE MD To: Giovana Keith RN; Sent: 03/09/2024 10:53:27 EDT Subject: RE: Coding Query Caller Name: LEXI TATUM; Caller Number: Giovanni , M E. coli urinary tract infection?secondary to ureteral stent. Present on admission. Thank you. Sangeeta [facility] ED Note-Physicianon 03-04-20 ED Note-Physician ED Note-Physician Basic Information Time Seen: Alonso THOMPSON Teo 02/26/2024 17:30 Chief Complaint To ED for [...] has a cardiac history and follows with [facility] heart cardiology. 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 On deep vein thrombosis (DVT) prophylaxis (Z79.899: Other terminal supervisor (current) drug therapy) Orders: Sodium Chloride 0.9% [...] made to ensure accuracy, however, inadvertently computerized field marketer mistakes may be present. Appropriate healthcare PPE was used in evaluating this patient. Problem List/Past Medical History Ongoing Chronic kidney disease, stage 3 unspecified Class 3 severe obesity with serious comorbidity in adult Diabetic pe (more content not included)... Normal [facility] Comment on above: Result Comment: Elec tronically Signed By: Teo Gupta PA-C\\.br\\Date and Time Signed: 02/26/24 19:01 EDT\\.br\\Electronically Co-Signed By: Baljit Hawkins MD\\.br\\Date and Time Co-Signed: 03/04/24 22:01 EDT Troponin 1 Hr.on 03-03-2024 Troponin HS 70.30 pg/mL Abnormal 10.10-27.10 [facility] Comment on above: Order Comment: 1830 Result Comment: Crit ical Result Verified by Previous Result Called to Teo Patrick RN @1833 02/26/2024 BCS The 95% CI (Confidence Interval) PPV (Positive Predictive Value) for myocardial infarction in females is 38 pg/mL, in males 51 pg/mL. The results should be used in conjunction with clinical conditions of myocardial infarction. ([employer] High Sensitivity Troponin I Instructions For Use, [place], February 2018) Critical Result Verified by Previous Result The 95% CI (Confidence Interval) PPV (Positive Predictive Value) for myocardial infarction in females is 38 pg/mL, in males 51 pg/mL. The results should be used in conjunction with clinical conditions of myocardial infarction. ([employer] High Sensitivity Troponin I Instructions For Use, [place], February 2018) Performed By: #### 1 [id number] #### [facility] [address] [place] [id number] [employer] Message Officeon TRELYS Message Office --- --- --- --- --- --- --- --- --- From: KimballNory Nixon To: LEXI TATUM Sent: 03/01/24 02:30:40 AM EDT Subject: Discharge Summary Ready to View A summary regarding your recent visit is available in the Documents section of your health record. [facility] C Urineon 02-29-2024 Bacteria identified Cx Nom (U) Microbiology PROCEDURE: Urine Culture [R1] SOURCE: U CleanCatch BODY SITE: COLLECTED DATE/TIME: 02/27/2024 03:19 EDT RECEIVED DATE/TIME: 02/27/2024 04:04 EDT START DATE/TIME: 02/27/2024 04:12 EDT FREE TEXT SOURCE: KADE MARLOW, Allison CHANCE MD, Allison FINAL REPORTS Final Report [] Verified Date/Time: [...] Locations R1: This test was performed at: [facility], [address] [place] [address], [facility] , , [facility] Comment on above: Performed By: #### 2 [id number] #### [facility] [address] [place] [id number] CHEMISTRYOrdered By: Lab ROP User on 02-29-2024 Glucose [Mass/Vol] 137 mg/dL High 55 - 99 mg/dL FTM C POC Subsection Comment on above: Result Comment: Tomas PERLA POC Device SN [id number] 1 Invalid Interpretation Code [facility] POC Subsection POC User ID [id number] 1 Invalid Interpretation Code [facility] POC Subsection POC Username JIE MONK Invalid Interpretation Code FT POC Subsection Glucose [Mass/Vol] 130 mg/dL High 55 - 99 mg/dL FTM C POC Subsection Comment on above: Result Comment: Tomas PERLA POC Device SN [id number] 1 Invalid Interpretation Code [facility] POC Subsection POC User ID [id number] 1 Invalid Interpretation Code [facility] POC Subsection POC Username JIE MONK Invalid Interpretation Code [facility] POC Subsection Capillary Glucose POCon 02-11 Glucose [Mass/Vol] 137 mg/dL High 55-99 [facility] Comment on above: Result Comment: Tomas PERLA Performed By: #### 2 [id number] #### [facility] [address] [place] [id number] Glucose [Mass/Vol] 130 mg/dL High 55-99 [facility] Comment on above: Result Comment: Tomas saleem RN/MD Performed By: #### 2 [id number] #### [facility] [address] [place] [address] Discharge Note-Nursingon Discharge Note-Nursing Discharge Note-Nursing LEXI [...] BEST When: 03/05/2024 01:45 PM EDT Where: [address] [place] [phone] Business (1) Medications What How Much When Why Instructions Next Dose New cephalexin (Keflex 500 mg Cap) 1 Capsules By Mouth 3 times a day Urinary tract infection Duration: 4 Days Pickup at [facility] 03/01/2024 @ 9:00 AM Unchanged acetaminophen [...] Pharmacy Information [facility]: [address] [facility] (more content not included)... Normal [facility] [id number] 02-29-2024 HbA1c (Bld) [Mass fraction] 7.4 % High <=5.9 [facility] Comment on above: Performed By: #### 7 [id number] #### [facility] [address] [place] [address] Inpatient Clinical Summaryon 02-29-2024 Inpatient Clinical Summary Inpatient Clinical Summary [address] [address] Clinical Summary Person Information: Name: LEXI TATUM Age: 78 Years : 1945 Sex: Female PCP: STEFAN BEST MD Marital Status: Race: White Ethnicity: Non- or Language: German Visit Id: Visit Reason: Chest pain; ALOC Speciality: Acuity: Enc Type: Inpatient Med Service: Medical Arrival: 02/26/2024 17:28:58 Discharge: Dispo Type: Admitted as IP to this Hosp Address: [address] [place] [id number] Provider Notes: Diagnosis: 1:Acute metabolic encephalopathy; 2:Sepsis; [...] Follow up: With: Address: When: STEFAN BEST [address] [place] [address] Business (1) 03/05/2024 1:45 PM Patient Education Information: Normal [facility] Inpatient Patient Summaryon 02-29-2024 Inpatient Patient Summary Inpatient Patient Summary [address] [address] Patient Discharge Instructions PERSON INFORMATION [...] vein thrombosis (DVT) prophylaxis Condition at Discharge: LEXI Alvarado has been given the following list of [...] With: Address: When: STEFAN BEST [address] [place], [place] [id number] Business () 03/05/2024 1:45 PM In the event that [...] YOUR HOSPITAL STAY [facility], [address] [place], [place] [id number], [phone] cephalexin (Keflex 500 mg Cap) 1 Capsules [...] AC&HS. Refills (more content not included)... Normal [facility] BMPon 02-28-2024 Anion gap [Moles/Vol] 12 mmol/L Normal -16 [facility] Comment on above: Performed By: #### 2 [id number] #### [facility] [address] [place] [address] Calcium [Mass/Vol] 8.8 mg/dL Low 8.9-11.1 [facility] Comment on above: Performed By: #### 2 [id number] #### [facility] [address] [place] [address] Chloride [Moles/Vol] 104 mmol/L Normal 101-111 [facility] Comment on above: Performed By: #### 2 [id number] #### [facility] [address] [place] [address] CO2 [Moles/Vol] 25 mmol/L Normal 21-31 [facility] Comment on above: Performed By: #### 2 [id number] #### [facility] [address] [place] [address] Creatinine [Mass/Vol] 1.5 mg/dL High 0.5-1.3 [facility] Comment on above: Performed By: #### 2 [id number] #### [facility] [address] [place] [address] Glucose [Mass/Vol] 53 mg/dL Low 55-199 [facility] Comment on above: Performed By: #### 2 [id number] #### [facility] [address] [place] [address] Potassium [Moles/Vol] 4.5 mmol/L Normal 3.5-5.3 [facility] Comment on above: Performed By: #### 2 [id number] #### [facility] [address] [place] [address] Sodium [Moles/Vol] 136 mmol/L Normal 135-145 [facility] Comment on above: Performed By: #### 2 [id number] #### [facility] [address] [place] [address] Urea nitrogen [Mass/Vol] 36 mg/dL High 5-21 [facility] Comment on above: Performed By: #### 2 [id number] #### [facility] [address] [place] [address] Urea nitrogen/Creatinine [Mass ratio] 24 No Units High 10-20 [facility] Comment on above: Performed By: #### 2 [id number] #### [facility] [address] [place] [address] CHEMISTRYOrdered By: Lab ROP User on 02-28-2024 Glucose [Mass/Vol] 132 mg/dL High 55 - 99 mg/dL FT C POC Subsection Comment on above: Result Comment: Tomas saleem RN/ POC Device SN [id number] 1 Invalid Interpretation Code [facility] POC Subsection POC User ID [id number] 1 Invalid Interpretation Code [facility] POC Subsection POC Username ANTONELLA MUNGUIA Invalid Interpretation Code [facility] POC Subsection CHEMISTRYOrdered By: SYSTEM SYSTEM on [...] 02-11 Glucose [Mass/Vol] 132 mg/dL High 55-99 [facility] Comment on above: Result Comment: Tomas PERLA Performed By: #### 2 [id number] #### [facility] [address] [place] [address] Glucose [Mass/Vol] 118 mg/dL High 55-99 [facility] Comment on above: Result Comment: Tomas PERLA Performed By: #### 2 [id number] #### [facility] [address] [place] [address] Glucose [Mass/Vol] 229 mg/dL High - [facility] Comment on above: Result Comment: Tomas PERLA Performed By: #### 2 [id number] #### [facility] [address] [place] [address] Glucose [Mass/Vol] 229 mg/dL High 55-99 [facility] Comment on above: Performed By: #### 2 [id number] #### [facility] [address] [place] [address] Glucose [Mass/Vol] 56 mg/dL Normal -99 [facility] Comment on above: Result Comment: Tomas PERLA Performed By: #### 2 [id number] #### [facility] [address] [place] [address] [place] 02-28-2024 WB Tube Collected Yes Invalid Interpretation Code [facility] Comment on above: Performed By: #### 1 [id number] #### [facility] [address] [place] [address] eGFRon 02-28-2024 eGFR 35 mL/min/1.73 m2 Low >=59 [facility] [facility] Comment on above: Order Comment: Order added by Discern Expert. Performed By: #### 1 [id number] #### [facility] [address] [place] [address] BMPon 02-27-2024 Anion gap [Moles/Vol] 12 mmol/L Normal 6-16 [facility] Comment on above: Performed By: #### 2 [id number] #### [facility] [address] [place] [address] Calcium [Mass/Vol] 8.4 mg/dL Low 8.9-11.1 [facility] Comment on above: Performed By: #### 2 [id number] #### [facility] [address] [place] [address] Chloride [Moles/Vol] 104 mmol/L Normal 101-111 [facility] Comment on above: Performed By: #### 2 [id number] #### [facility] [address] [place] [address] CO2 [Moles/Vol] 25 mmol/L Normal 21-31 [facility] Comment on above: Performed By: #### 2 [id number] #### [facility] [address] [place] [address] Creatinine [Mass/Vol] 1.6 mg/dL High 0.5-1.3 [facility] Comment on above: Performed By: #### 2 [id number] #### [facility] [address] [place] [address] Glucose [Mass/Vol] 182 mg/dL Normal 55-199 [facility] Comment on above: Performed By: #### 2 [id number] #### [facility] [address] [place] [address] Potassium [Moles/Vol] 4.6 mmol/L Normal 3.5-5.3 [facility] Comment on above: Performed By: #### 2 [id number] #### [facility] [address] [place] [address] Sodium [Moles/Vol] 136 mmol/L Normal 135-145 [facility] Comment on above: Performed By: #### 2 [id number] #### [facility] [address] [place] [address] Urea nitrogen [Mass/Vol] 40 mg/dL High 5-21 [facility] Comment on above: Performed By: #### 2 [id number] #### [facility] [address] [place] [address] Urea nitrogen/Creatinine [Mass ratio] 25 No Units High 10-20 [facility] Comment on above: Performed By: #### 2 [id number] #### [facility] [address] [place] [address] CBC w/ Auto Diffon 4 Basophils/100 WBC (Bld) 0.3 % Normal 0.0-2.0 [facility] Comment on above: Performed By: #### 2 [id number] #### [facility] [address] [place] [address] Basophils/Leukocyte s Auto (Bld) [Pure # fraction] 0.0 E9/L Normal 0.0-0.2 [facility] Comment on above: Performed By: #### 2 [id number] #### [facility] [address] [place] [address] Eosinophils (Bld) [#/Vol] 0.0 E9/L Normal 0.0-0.5 [facility] Comment on above: Performed By: #### 2 [id number] #### [facility] [address] [place] [address] Eosinophils/100 WBC (Bld) 0.3 % Normal 0.0-8.0 [facility] Comment on above: Performed By: #### 2 [id number] #### [facility] [address] [place] [address] Erythrocyte distribution width (RBC) [Ratio] 16.2 % High 10.9-14.2 [facility] Comment on above: Performed By: #### 2 [id number] #### [facility] [address] [place] [address] Hematocrit (Bld) [Volume fraction] 34.2 % Normal 34.0-46.0 [facility] Comment on above: Performed By: #### 2 [id number] #### [facility] [address] [place] [address] Hemoglobin (Bld) [Mass/Vol] 11.0 g/dL Low 12.0-16.0 [facility] Comment on above: Performed By: #### 2 [id number] #### [facility] [address] [place] [address] Lymphocytes (Bld) [#/Vol] 0.8 E9/L Low 1.0-4.0 [facility] Comment on above: Performed By: #### 2 [id number] #### [facility] [address] [place] [address] Lymphocytes/100 WBC (Bld) 8.7 % Low 14.0-50.0 [facility] Comment on above: Performed By: #### 2 [id number] #### [facility] [address] [place] [address] MCH (RBC) [Entitic mass] 32.0 pg Normal 27.0-34.0 [facility] Comment on above: Performed By: #### 2 [id number] #### [facility] [address] [place] [address] MCHC (RBC) [Mass/Vol] 32.2 g/dL Normal 31.4-36.0 [facility] Comment on above: Performed By: #### 2 [id number] #### [facility] [address] [place] [address] MCV (RBC) [Entitic vol] 99.4 fL Normal 80.0-100.0 [facility] Comment on above: Performed By: #### 2 [id number] #### [facility] [address] [place] [address] Monocytes (Bld) [#/Vol] 0.7 E9/L Normal 0.2-1.0 [facility] Comment on above: Performed By: #### 2 [id number] #### [facility] [address] [place] [address] Neutrophils (Bld) [#/Vol] 7.9 E9/L High 2.0-7.5 [facility] Comment on above: Performed By: #### 2 [id number] #### [facility] [address] [place] [address] Neutrophils/100 WBC (Bld) 83.7 % High 36.0-75.0 [facility] Comment on above: Performed By: #### 2 [id number] #### [facility] [address] [place] [address] Platelet mean volume (Bld) [Entitic vol] 9.0 fL Normal 6.4-10.8 [facility] Comment on above: Performed By: #### 2 [id number] #### [facility] [address] [place] [address] Platelets (Bld) [#/Vol] 215.0 E9/L Normal 150.0-500.0 [facility] Comment on above: Performed By: #### 2 [id number] #### [facility] [address] [place] [address] RBC (Bld) [#/Vol] 3.4 E12/L Low 4.3-5.9 [facility] Comment on above: Performed By: #### 2 [id number] #### [facility] [address] [place] [address] WBC corrected for nucl RBC Auto (Bld) [#/Vol] 9.5 E9/L Normal 4.0-11.0 [facility] Comment on above: Performed By: #### 2 [id number] #### [facility] [address] [place] [address] CHEMISTRYOrdered By: SYSTEM SYSTEM on 02-27-2024 Anion [...] Instructions For Use, Yazmin Soraya, February 2018) CHEMISTRYOrdered By: Bre Heart on 02-27-2024 HbA1c (Bld) [Mass fraction] 7.4 % High <=5.9% [facility] ChemAutoSS CT Head or Brain w/o Contras [...] MD Transcribed by: NIKKI Technologist: ALEX Normal [facility] Capillary Glucose POCon 02-11 Glucose [Mass/Vol] 181 mg/dL High 55-99 [facility] Comment on above: Result Comment: Tomas saleem RN/ Performed By: #### 2 [id number] #### [facility] [address] [place] [address] Glucose [Mass/Vol] 153 mg/dL High 55-99 [facility] Comment on above: Performed By: #### 2 [id number] #### [facility] [address] [place] [address] Glucose [Mass/Vol] 147 mg/dL High 55-99 [facility] Comment on above: Result Comment: Tomas saleem RN/ Performed By: #### 2 [id number] #### [facility] [address] [place] [address] Glucose [Mass/Vol] 159 mg/dL High 55-99 [facility] Comment on above: Performed By: #### 2 [id number] #### [facility] [address] [place] [address] Coding Queryon 02-27-2024 Coding Query Coding Query -- From: Sherif Puckett RN To: KADE MARLOW, Allison; Sent: 02/27/2024 07:17:42 EDT Subject: Coding Query [...] Caller Number: H , M Thank you. [facility] Coding Query Coding Query -- From: Sherif [...] No Sepsis- POA; Had AMS also Normal [facility] Coding Query Coding Query -- From: [...] is desired or expected. Thank you!sherif [id number] [facility] Coding Query Coding Query -- From: Sherif Puckett RN To: KADE MARLOW, [facility]; Sent: 02/27/2024 07:12:49 EDT ! Subject: Coding Query Due Date/Time: 02/28/2024 07:12:00 EDT Caller Name: LEXI TATUM; Caller Number: , Documentation in the medical record indicates this [...] desired or expected. Thank you!sherif [id number] Normal [facility] HEMATOLOGYOrdered By: SYSTEM SYSTEM on 02-27-2024 [...] 02-27-2024 Inpatient Clinical Summary Inpatient Clinical Summary [place] [address] Clinical Summary Person Information: Name: LEXI TATUM Age: 78 Years : 1945 Sex: Female PCP: STEFAN BEST MD Marital Status: Race: White Ethnicity: Non- or Language: German Visit Id: Visit Reason: Chest pain; ALOC Speciality: Acuity: Enc Type: Inpatient Med Service: Medical Arrival: 02/26/2024 17:28:58 Discharge: Dispo Type: Admitted as IP to this Hosp Address: [address] [place], [place] [id number] Provider Notes: Diagnosis: 1:Acute metabolic encephalopathy; 2:Sepsis; [...] Physician: Follow up: With: Address: When: STEFAN ESTEPHANIA [address] [place] [phone] Business (1) Patient Education Information: Normal [facility] Inpatient Patient Summaryon 02-27-2024 Inpatient Patient Summary Inpatient Patient Summary [address] [address] Patient Discharge Instructions PERSON INFORMATION Name: LEXI [...] vein thrombosis (DVT) prophylaxis Condition at Discharge: LEXI TATUM has been given the following [...] results: Follow up: With: Address: When: STEFAN ESTEPHANIA [address] [place] [phone] Business (1) In the event that this [...] Dose: rosuvasta (more content not included)... Normal [facility] Interdisciplinary Note - Tejas e Manageron 02-27-2024 Interdisciplinary Note - Decal Applier Interdisciplinary Note - Decal Applier CRM to room to discuss DC planning. [...] board updated. CRM following [facility] accepts on [facility] side with semi private room, has to have 3 M stay and could DC 02/28 [facility] accepted if that is plan at DC Patient does not want a shared room and said she will just DC home with HH Normal [facility] Comment on above: Result Comment: Elec [...] to follow Friday-Friday, progressing as tolerates. Normal [facility] Interdisciplinary Note - PTo n 02-27-2024 Interdisciplinary Note - PT Interdisciplinary Note - PT Initial PT eval completed. 6 Clicks AM-PAC . Recommend SNF vs HH PT. FAmily concern with safety at home alone when they are working. Spouse also to have TKA next week. Pt would benefit from strengthening prior to pending LIVIER. Will see daily. Normal [facility] Interdisciplinary Note - Soc ial Workeron 02-27-2024 Interdisciplinary Note - Inside Sales Agent Interdisciplinary Note - Inside Sales Agent There was a system generated request for [...] if there are any further questions. Normal [facility] Lactic Acidon 02-27-2024 Lactic Acid Lvl 1.4 mmol/L Normal 0.5-2.2 [facility] Comment on above: Performed By: #### 2 [id number] #### [facility] [address] [place] [id number] TOBRAMYCIN:SUSC:PT:ISOLATE:O RDQN:MICOrdered By: Elisa Love on 02-27-2024 Tobramycin JOHAN [Susc] 20,000 cfu/ml Escherichia coli [facility] Tobramycin JOHAN [Susc]Ordered By: Elisa Love on 02-27-2024 Escherichia coli Escherichia coli Fi [facility] Troponin 6 Hr.on 02-27-2024 Troponin HS 38.90 pg/mL Abnormal 10.10-27.10 [facility] Comment on above: Result Comment: Crit [...] Sensitivity Troponin I Instructions For Use, Yazmin John Day, February 2018) Performed By: #### 1 [id number] #### [facility] [address] [place] [address] UA with Cult Rflxon 02-27-20 24 Bilirubin Ql (U) dupl Invalid Interpretation Code [facility] Comment on above: Performed By: #### 4 [id number] #### [facility] [address] [place] [address] Clarity (U) dupl Invalid Interpretation Code [facility] Comment on above: Performed By: #### 4 [id number] #### [facility] [address] [place] [address] Color (U) dupl Invalid Interpretation Code [facility] Comment on above: Result Comment: dupl icate order/credited 02/27/2024 08:19 CSS Microscopic readings are only performed on those samples that meet specific criteria set forth by [facility]. Performed By: #### 4 [id number] #### [facility] [address] [place] [address] Glucose Ql (U) dupl Invalid Interpretation Code [facility] Comment on above: Performed By: #### 4 [id number] #### [facility] [address] [facility] [place] [address] Hemoglobin Auto test strip (U) [Mass/Vol] dupl Invalid Interpretation Code [facility] Comment on above: Performed By: #### 4 [id number] #### [facility] [address] [facility] [place] [address] Ketones Auto test strip Ql (U) dupl Invalid Interpretation Code [facility] Comment on above: Performed By: #### 4 [id number] #### [facility] [address] [facility] [place] [address] Leukocyte esterase Auto test strip Ql (U) dupl Invalid Interpretation Code [facility] Comment on above: Performed By: #### 4 [id number] #### [facility] [address] [facility] [place] [address] Nitrite Auto test strip Ql (U) dupl Invalid Interpretation Code [facility] Comment on above: Performed By: #### 4 [id number] #### [facility] [address] [place] [address] pH (U) dupl Invalid Interpretation Code 5.0-9.0 [facility] Comment on above: Performed By: #### 4 [id number] #### [facility] [address] [place] [address] Protein Ql (U) dupl Invalid Interpretation Code [facility] Comment on above: Performed By: #### 4 [id number] #### [facility] [address] [place] [address] Specific gravity (U) [Rel density] dupl Invalid Interpretation Code 1.005-1.030 [facility] Comment on above: Performed By: #### 4 [id number] #### [facility] [address] [place] [address] Urobilinogen (U) [Mass/Vol] dupl Invalid Interpretation Code [facility] Comment on above: Performed By: #### 4 [id number] #### [facility] [address] [place] [address] Bacteria Auto Ql (U) 1+ /HPF Abnormal Trace [facility] Comment on above: Performed By: #### 4 [id number] #### [facility] [address] [place] [address] Bilirubin Ql (U) Negative Normal Negative [facility] Comment on above: Performed By: #### 4 [id number] #### [facility] [address] [place] [address] Clarity (U) Turbid Abnormal Clear [facility] Comment on above: Performed By: #### 4 [id number] #### [facility] [address] [place] [address] Color (U) Light-Douglas Abnormal Yellow [facility] Comment on above: Result Comment: Micr oscopic readings are only performed on those samples that meet specific criteria set forth by [facility]. Performed By: #### 4 [id number] #### [facility] [address] [place] [address] Epithelial cells.squamous Auto (Urine sed) [#/Area] 0-2 Invalid Interpretation Code [facility] Comment on above: Performed By: #### 4 [id number] #### [facility] [address] [place] [address] Glucose Ql (U) Negative Normal Negative [facility] Comment on above: Performed By: #### 4 [id number] #### [facility] [address] [place] [address] Hemoglobin Auto test strip (U) [Mass/Vol] 3+ mg/dL Abnormal Negative [facility] Comment on above: Performed By: #### 4 [id number] #### [facility] [address] [place] [address] Ketones Auto test strip Ql (U) Negative Normal Negative [facility] Comment on above: Performed By: #### 4 [id number] #### [facility] [address] [place] [address] Leukocyte clumps Auto (Urine sed) [#/Area] 11-20 Abnormal [facility] Comment on above: Performed By: #### 4 [id number] #### [facility] [address] [place] [address] Leukocyte esterase Auto test strip Ql (U) 500 [place]/uL Abnormal Negative [facility] Comment on above: Performed By: #### 4 [id number] #### [facility] [address] [place] [address] Mucus Auto Ql (U) Trace Normal Negative [facility] Comment on above: Performed By: #### 4 [id number] #### [facility] [address] [place] [address] Nitrite Auto test strip Ql (U) 1+ mg/dL Abnormal Negative [facility] Comment on above: Performed By: #### 4 [id number] #### [facility] [address] [place] [address] pH (U) 7.0 [pH] Invalid Interpretation Code 5.0-9.0 [facility] Comment on above: Performed By: #### 4 [id number] #### [facility] [address] [place] [address] Protein Ql (U) 2+ mg/dL Abnormal Negative [facility] Comment on above: Performed By: #### 4 [id number] #### [facility] [address] [place] [address] RBC Ql (U) 31-75 Abnormal 0-3 [facility] Comment on above: Performed By: #### 4 [id number] #### [facility] [address] [place] [address] Specific gravity (U) [Rel density] 1.011 Invalid Interpretation Code 1.005-1.030 [facility] Comment on above: Performed By: #### 4 [id number] #### [facility] [address] [place] [address] Urobilinogen (U) [Mass/Vol] Negative Normal Negative [facility] Comment on above: Performed By: #### 4 [id number] #### [facility] [address] [place] [address] WBC Auto (Urine sed) [#/Area] >75 Abnormal 0-5 [facility] Comment on above: Performed By: #### 4 [id number] #### [facility] [address] [place] [address] URINALYSISOrdered By: SYSTEM SYSTEM on 02-27-2024 Bacteria Auto Ql (U) 1+ /HPF Invalid Interpretation Code Trace/HPF [facility] UA Auto SS Bilirubin Ql (U) Negative Normal Negativemg/dL [facility] UA Auto SS Clarity (U) Turbid *ABN* (02/27/24 3:19 AM) Invalid Interpretation Code Clear [facility] UA Auto SS Color (U) Light-Douglas 3 *ABN* (02/27/24 3:19 AM) Invalid Interpretation Code Yellow [facility] UA Auto SS Comment on above: Interpretive Data: M icroscopic readings are only performed on those samples that meet specific criteria set forth by [facility]. Epithelial cells.squamous Auto (Urine sed) [#/Area] 0-2 graded/HPF Invalid Interpretation Code [facility] UA Auto SS Glucose Ql (U) Negative Normal Negativemg/dL [facility] UA Auto SS Hemoglobin Auto test strip (U) [Mass/Vol] 3+ mg/dL Invalid Interpretation Code Negativemg/dL [facility] UA Auto SS Ketones Auto test strip Ql (U) Negative Normal Negativemg/dL [facility] UA Auto SS Leukocyte clumps Auto (Urine sed) [#/Area] 11-20 graded/HPF Invalid Interpretation Code [facility] UA Auto SS Leukocyte esterase Auto test strip Ql (U) 500 [place]/uL [place]/uL Invalid Interpretation Code NegativeLeu/uL [facility] UA Auto SS Mucus Auto Ql (U) Trace graded/LPF Normal Negativegrad ed/LPF [facility] UA Auto SS Nitrite Auto test strip Ql (U) 1+ mg/dL Invalid Interpretation Code Negativemg/dL [facility] UA Auto SS pH (U) 7.0 *NA* (02/27/24 3:19 AM) Invalid Interpretation Code 5.0 - 9.0 [facility] UA Auto SS Protein Ql (U) 2+ mg/dL Invalid Interpretation Code Negativemg/dL [facility] UA Auto SS RBC Ql (U) 31-75 graded/HPF Invalid Interpretation Code 0-3graded/HPF [facility] UA Auto SS Specific gravity (U) [Rel density] 1.011 *NA* (02/27/24 3:19 AM) Invalid Interpretation Code 1.005 - 1.030 [facility] UA Auto SS Urobilinogen (U) [Mass/Vol] Negative Normal Negativemg/dL [facility] UA Auto SS WBC Auto (Urine sed) [#/Area] >75 graded/HPF Invalid Interpretation Code 0-5graded/HPF [facility] UA Auto SS URINALYSISOrdered By: Elisa Love on 02-27-2024 Bilirubin Ql (U) dupl Invalid Interpretation Code [facility] UA Auto SS Clarity (U) dupl Invalid Interpretation Code [facility] UA Auto SS Color (U) dupl Invalid Interpretation Code [facility] UA Auto SS Comment on above: Result Comment: dupl icate order/credited 02/27/2024 08:19 CSS Interpretive Data: M icroscopic readings are only performed on those samples that meet specific criteria set forth by [facility]. Glucose Ql (U) dupl Invalid Interpretation Code [facility] UA Auto SS Hemoglobin Auto test strip (U) [Mass/Vol] dupl Invalid Interpretation Code [facility] UA Auto SS Ketones Auto test strip Ql (U) dupl Invalid Interpretation Code [facility] UA Auto SS Leukocyte esterase Auto test strip Ql (U) dupl Invalid Interpretation Code [facility] UA Auto SS Nitrite Auto test strip Ql (U) dupl Invalid Interpretation Code [facility] UA Auto SS pH (U) dupl Invalid Interpretation Code 5.0 - 9.0 [facility] UA Auto SS Protein Ql (U) dupl Invalid Interpretation Code [facility] UA Auto SS Specific gravity (U) [Rel density] dupl Invalid Interpretation Code 1.005 - 1.030 [facility] UA Auto SS Urobilinogen (U) [Mass/Vol] dupl Invalid Interpretation Code [facility] UA Auto SS URINALYSISOrdered By: Teo Gupta on 02-27-2024 UA Spec Desc Clean Catch (02/27/24 3:19 AM) Normal [facility] UA Auto SS Work Phone: URINALYSISOrdered By: Marifer palafox OJUKPORFIRIO on 02-27-2024 UA Spec Desc Random Urine (02/27/24 3:19 AM) Normal [facility] UA Auto SS Work Phone: XR Chest [...] mGy = . DAP = . Normal [facility] eGFRon 02-27-2024 eGFR 33 mL/min/1.73 m2 Low >=59 [facility] Comment on above: Order Comment: Order added by Discern Expert. Performed By: #### 1 [id number] #### [facility] [address] [place] [address] BB Draw & Holdon 02-26-2024 BB D&H Sample drawn for Blood Ba Normal [facility] Comment on above: Performed By: #### 1 [id number] #### [facility] [address] [place] [address] BMPon 02-26-2024 Anion gap [Moles/Vol] 11 mmol/L Normal 6-16 [facility] Comment on above: Performed By: #### 2 [id number] #### [facility] [address] [place] [address] Calcium [Mass/Vol] 8.7 mg/dL Low 8.9-11.1 [facility] Comment on above: Performed By: #### 2 [id number] #### [facility] [address] [place] [address] Chloride [Moles/Vol] 100 mmol/L Low 101-111 [facility] Comment on above: Performed By: #### 2 [id number] #### [facility] [address] [place] [address] CO2 [Moles/Vol] 26 mmol/L Normal 21-31 [facility] Comment on above: Performed By: #### 2 [id number] #### [facility] [address] [place] [address] Creatinine [Mass/Vol] 1.8 mg/dL High 0.5-1.3 [facility] [facility] Comment on above: Performed By: #### 2 [id number] #### [facility] [address] [place] [address] Glucose [Mass/Vol] 97 mg/dL Normal 55-199 [facility] Comment on above: Performed By: #### 2 [id number] #### [facility] [address] [place] [address] Potassium [Moles/Vol] 4.4 mmol/L Normal 3.5-5.3 [facility] Comment on above: Performed By: #### 2 [id number] #### [facility] [address] [place] [address] Sodium [Moles/Vol] 133 mmol/L Low 135-145 [facility] Comment on above: Performed By: #### 2 [id number] #### [facility] [address] [place] [address] Urea nitrogen [Mass/Vol] 39 mg/dL High 5-21 [facility] Comment on above: Performed By: #### 2 [id number] #### [facility] [address] [place] [address] Urea nitrogen/Creatinine [Mass ratio] 22 No Units High 10-20 [facility] Comment on above: Performed By: #### 2 [id number] #### [facility] [address] [place] [address] CBC w/ Auto Diffon 4 Basophils/100 WBC (Bld) 1.0 % Normal 0.0-2.0 [facility] Comment on above: Performed By: #### 2 [id number] #### [facility] [address] [place] [address] Basophils/Leukocyte s Auto (Bld) [Pure # fraction] 0.1 E9/L Normal 0.0-0.2 [facility] Comment on above: Performed By: #### 2 [id number] #### [facility] [address] [place] [address] Eosinophils (Bld) [#/Vol] 0.1 E9/L Normal 0.0-0.5 [facility] Comment on above: Performed By: #### 2 [id number] #### [facility] [address] [place] [address] Eosinophils/100 WBC (Bld) 0.5 % Normal 0.0-8.0 [facility] Comment on above: Performed By: #### 2 [id number] #### [facility] [address] [place] [address] Erythrocyte distribution width (RBC) [Ratio] 15.8 % High 10.9-14.2 [facility] Comment on above: Performed By: #### 2 [id number] #### [facility] [address] [place] [address] Hematocrit (Bld) [Volume fraction] 34.4 % Normal 34.0-46.0 [facility] Comment on above: Performed By: #### 2 [id number] #### [facility] [address] [place] [address] Hemoglobin (Bld) [Mass/Vol] 10.8 g/dL Low 12.0-16.0 [facility] Comment on above: Performed By: #### 2 [id number] #### [facility] [address] [place] [address] Lymphocytes (Bld) [#/Vol] 1.1 E9/L Normal 1.0-4.0 [facility] Comment on above: Performed By: #### 2 [id number] #### [facility] [address] [place] [address] Lymphocytes/100 WBC (Bld) 8.4 % Low 14.0-50.0 [facility] Comment on above: Performed By: #### 2 [id number] #### [facility] [address] [place] [address] MCH (RBC) [Entitic mass] 31.4 pg Normal 27.0-34.0 [facility] Comment on above: Performed By: #### 2 [id number] #### [facility] [address] [place] [address] MCHC (RBC) [Mass/Vol] 31.5 g/dL Normal 31.4-36.0 [facility] Comment on above: Performed By: #### 2 [id number] #### [facility] [address] [place] [address] MCV (RBC) [Entitic vol] 99.8 fL Normal 80.0-100.0 [facility] Comment on above: Performed By: #### 2 [id number] #### [facility] [address] [place] [address] Monocytes (Bld) [#/Vol] 1.0 E9/L Normal 0.2-1.0 [facility] Comment on above: Performed By: #### 2 [id number] #### [facility] [address] [place] [address] Neutrophils (Bld) [#/Vol] 10.5 E9/L High 2.0-7.5 [facility] Comment on above: Performed By: #### 2 [id number] #### [facility] [address] [place] [address] Neutrophils/100 WBC (Bld) 82.2 % High 36.0-75.0 [facility] Comment on above: Performed By: #### 2 [id number] #### [facility] [address] [place] [address] Platelet mean volume (Bld) [Entitic vol] 8.8 fL Normal 6.4-10.8 [facility] Comment on above: Performed By: #### 2 [id number] #### [facility] [address] [place] [address] Platelets (Bld) [#/Vol] 211.0 E9/L Normal 150.0-500.0 [facility] Comment on above: Performed By: #### 2 [id number] #### [facility] [address] [place] [address] RBC (Bld) [#/Vol] 3.4 E12/L Low 4.3-5.9 [facility] Comment on above: Performed By: #### 2 [id number] #### [facility] [address] [place] [address] WBC corrected for nucl RBC Auto (Bld) [#/Vol] 12.8 E9/L High 4.0-11.0 [facility] Comment on above: Performed By: #### 2 [id number] #### [facility] [address] [place] [address] CHEMISTRYOrdered By: SYSTEM SYSTEM on 02-26-2024 Troponin HS 59.70 pg/mL Invalid Interpretation Code 10.10 - 27.10 pg/mL [facility] Comment on above: Result Comment: Crit ical Result Verified by Previous Result Critical Result I_TnIHS:59.7 Called to and read back by: AMANDA PRESLEY at: 02/26/2024 21:24:01 by:[email or web address] Interpretive Data: T he 95% CI (Confidence Interval) PPV (Positive Predictive Value) for myocardial infarction in females is 38 pg/mL, in males 51 pg/mL. The results should be used in conjunction with clinical conditions of myocardial infarction. (Access High Sensitivity Troponin I Instructions For Use, [place], February 2018) Lactic Acid Lvl 0.6 mmol/L [...] High Sensitivity Troponin I Instructions For Use, [place], February 2018) Anion gap [Moles/Vol] 11 mmol/L [...] 30.9 s Normal 25.1 - 36.5 second(s) [facility] Auto Coag Comment on above: Interpretive Data: P arameter 15 days - 4 weeks 1 - 5 months 6 - 11 months 1 - 5 years 6 - 10 years 11 - 17 years PTT Mean: 35.4 (27.6-45.6) Mean: 33.5 (24.8-40.7) Mean: 32.4 (25.1-40.7) Mean: 31.6 (24.0-39.2) Mean: 31.6 (26.9-38.7) Mean: 31.0 (24.6-38.4) Pediatric Reference ranges were obtained from a study by willie Stephenson alaPul prepared from 1437 samples obtained at 7 different centers using the same coagulation reagent and instrumentation as [facility]. Currently there are no coagulation studies available worldwide for children to 14 days, and no normal ranges. Heparin therapeutic range (represented by Anti-Factor Xa activity of 0.2 - 0.4 U/mL) corresponds to PTT of 56.6 - 109.0 sec. INR Coag (PPP) [Relative time] 1.07 {INR} Invalid Interpretation Code [facility] Comment on above: Interpretive Data: I NR results are specifically intended to assess patients stabilized on long-term Anticoagulation therapy suggested INR s Less Intensive Anticoagulation 2.0 3.0 Conventional Range 3.0 4.5 PT Coag (PPP) [Time] 12.0 s Normal 9.4 - 12.5 second(s) [facility] Auto Coag Comment on above: Interpretive Data: [...] the same coagulation reagent and instrumentation as [facility]. Currently there are no coagulation studies available worldwide for children to 14 days, and no normal ranges. Capillary Glucose POCon 02-11 Glucose [Mass/Vol] 64 mg/dL Normal 55-99 [facility] Comment on above: Result Comment: Tomas saleem RN/MD Performed By: #### 2 [id number] #### [facility] [address] [place] [address] ED Clinical Summaryon 2023 ED Clinical Summary ED Clinical Summary [address] [address] ED Clinical Summary Person Information Name: LEXI TATUM Kiana/[facility] Age: 78 Years : 1945 Sex: Female Language: German PCP: STEFAN BEST MD Marital Status: Visit Id: Visit Reason: Chest pain; ALOC Speciality: Acuity: 1 Enc Type: Observation Med Service: Emergency Arrival: 02/26/2024 17:28:58 Discharge: LOS: 000 02:17 Checkin: 02/26/2024 17:28:58 Checkout: 02/26/2024 19:45:18 Dispo Type: Admitted as IP to this [facility] EVENTS: Event Name Event Status Request Date/Time [...] 18:57:34 Patient Care Request 02/26/2024 18:57:34 ADDRESS: [address] [place] [id number] [facility] DOC NOTES: MEDICAL INFORMATION: Prescriptions Given: PATIENT EDUCATION INFORMATION: Instructions: Follow up: DIAGNOSIS: 1:Sepsis; 2:Urinary tract infection; 3:Acute kidney injury; 4:Generalized weakness; 5:Diabetes; 6:Pure hypercholesterolemi a; 7:Class 3 severe obesity with serious comorbidity in adult; 8:Coronary artery disease; 9:On deep vein thrombosis (DVT) prophylaxis [facility] ED Patient Education Noteon 02-26-2024 ED Patient Education Note ED Patient Education Note Normal [facility] ED Patient Summaryon 024 ED Patient Summary ED Patient Summary [address] [address] Patient Discharge Instructions Person Information Name: LEXI TATUM Age: 78 Years Arrival Date: 02/26/2024 17:28:58 Discharge Diagnosis: 1:Sepsis; 2:Urinary tract infection; 3:Acute kidney injury; 4:Generalized weakness; 5:Diabetes; 6:Pure hypercholesterolemi a; 7:Class 3 severe obesity with serious comorbidity in adult; 8:Coronary artery disease; 9:On deep vein thrombosis (DVT) prophylaxis Primary Care Physician: STEFAN BEST MD Provider Information Primary Provider: Advanced Upset Operator:Teo Gupta PA-C The exam and treatment you received in the Emergency Department were for an urgent problem and are not intended as complete care. It is important that you follow up with a doctor, nurse practitioner, or physician?s mobile sales assistant for ongoing care. If your symptoms [...] opioids can be used to help relieve uyjrmoiw-hz-aqbmnh pain and are often prescribed following a [...] struggling with addiction, tell your health care clinician and ask fo (more content not included)... Normal [facility] HEMATOLOGYOrdered By: SYSTEM SYSTEM on 02-26-2024 [...] Lactic Acid Lvl 0.6 mmol/L Normal 0.5-2.2 [facility] Comment on above: Performed By: #### 2 [id number] #### [facility] [address] [place] [address] No Panel InformationOrdered By: ANGPROCESSSERVER MICROBIOLOGY on 02-26-2024 Blood Culture Charcoal No growth at 3 days. Final to follow at 7 days. [facility] PT & PTTon 02-26-2024 aPTT Coag (PPP) [Time] 30.9 second(s) Normal 25.1-36.5 [facility] Comment on above: Result Comment: Para [...] the same coagulation reagent and instrumentation as [facility]. Currently there are no coagulation studies available worldwide for children to 14 days, and no normal ranges. Heparin therapeutic range (represented by Anti-Factor Xa activity of 0.2 - 0.4 U/mL) corresponds to PTT of 56.6 - 109.0 sec. Performed By: #### 1 [id number] #### [facility] [address] [place] [address] INR Coag (PPP) [Relative time] 1.07 {INR} Invalid Interpretation Code [facility] Comment on above: Result Comment: INR results are specifically intended to assess patients stabilized on long-term Anticoagulation therapy suggested INR?s ?Less Intensive Anticoagulation? 2.0 ? 3.0 Conventional Range 3.0 ? 4.5 Performed By: #### 1 [id number] #### [facility] [address] [place] [address] PT Coag (PPP) [Time] 12.0 second(s) Normal 9.4-12.5 [facility] Comment on above: Result Comment: 15 [...] the same coagulation reagent and instrumentation as [facility]. Currently there are no coagulation studies available worldwide for children to 14 days, and no normal ranges. Performed By: #### 1 [id number] #### [facility] [address] [place] [address] Troponin 0 Hr.on 02-26-2024 Troponin HS 74.90 pg/mL Abnormal 10.10-27.10 [facility] Comment on above: Result Comment: Crit ical Result Verified by Repeat Analysis Critical Result I_TnIHS:74.9 Called to and read back by: TEO PATRICK RN at: 02/26/2024 18:18:39 by:[facility] The 95% CI (Confidence Interval) PPV (Positive Predictive Value) for myocardial infarction in females is 38 pg/mL, in males 51 pg/mL. The results should be used in conjunction with clinical conditions of myocardial infarction. (Access High Sensitivity Troponin I Instructions For Use, Yazmin Soraya, February 2018) Performed By: #### 1 [id number] #### [facility] [address] [place] [address] Troponin 1 Hr.on 02-26-2024 Troponin HS 70.30 pg/mL Abnormal 10.10-27.10 [facility] Comment on above: Order Comment: 1830 Result Comment: Crit ical Result Verified by Previous Result The 95% CI (Confidence Interval) PPV (Positive Predictive Value) for myocardial infarction in females is 38 pg/mL, in males 51 pg/mL. The results should be used in conjunction with clinical conditions of myocardial infarction. (Access High Sensitivity Troponin I Instructions For Use, [place], February 2018) Performed By: #### 1 [id number] #### [facility] [address] [place] [address] Troponin 3 Hr.on 02-26-2024 Troponin HS 59.70 pg/mL Abnormal 10.10-27.10 [facility] Comment on above: Result Comment: Crit ical Result Verified by Previous Result Critical Result I_TnIHS:59.7 Called to and read back by: AMANDA PRESLEY at: 02/26/2024 21:24:01 by:[email or web address] The 95% CI (Confidence Interval) PPV (Positive Predictive Value) for myocardial infarction in females is 38 pg/mL, in males 51 pg/mL. The results should be used in conjunction with clinical conditions of myocardial infarction. (Access High Sensitivity Troponin I Instructions For Use, [place], February 2018) Performed By: #### 1 [id number] #### [facility] [address] [place] [address] UA with Cult Rflxon 02-26-20 24 Type of Urine collection method Random Urine Normal [facility] Comment on above: Performed By: #### 4 [id number] #### [facility] [address] [place] [address] Type of Urine collection method Clean Catch Normal [facility] Comment on above: Performed By: #### 4 [id number] #### [facility] [address] [place] [address] eGFRon 02-26-2024 eGFR 28 mL/min/1.73 m2 Low >=59 [facility] Comment on above: Order Comment: Order added by Discern Expert. Performed By: #### 1 [id number] #### [facility] [address] [place] [address] Ambulatory Visit Summaryon 0 02-10-2024 Ambulatory Visit [...] Following Appointments Follow Up with REESE MARLOW, PATO Nye When: Where: [address] [facility] [address] [place] [address]- Medications What How Much When Why Instructions [...] Urinary in (more content not included)... Normal [facility] Urology Office/Clinic Noteon 02-10-2024 Urology Office/Clinic Note Urology Office/Clinic Note Chief Complaint follow up HPI Staff Lexi is a 78 y.o. female here for [facility] follow up stent placement [...] female new pt here for f/u to [facility] consult. 1. 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 AP wo con 01/22/24 [facility] - Bilateral hydronephrosis and hydroureter [...] We discussed options including referral to the [facility] emergency department for consideration of ureterolysis. She is not [...] try to get a hold of her paralegal legal secretary Dr. Ashby. GFR was around 28 at last [facility] (more content not included)... Normal [facility] Comment on above: Result Comment: Elec tronically Signed By: REESE MARLOW, Yaniv Mcarthur.br\\Date and Time Signed: 02/10/24 16:40 EDT Basophils Auto (Bld) [#/Vol] Ordered By: Norberto Pires on 01-25-2024 Basophils (Bld) [#/Vol] 0.0 10*3/uL 0.0-0.2 [facility] Basophils/100 WBC Auto (Bld) Ordered By: Norberto Pires on 01-25-2024 Basophils/100 WBC (Bld) 0.5 % . [facility] Calcium [Mass/volume] in Ser um or PlasmaOrdered By: Norberto Pires on 01-25-2024 Calcium [Mass/Vol] 8.6 mg/dL 8.6-10.3 [facility] Carbon dioxide, total [Moles /volume] in Serum or PlasmaOrdered By: Norberto Pires on 01-25-2024 CO2 [Moles/Vol] 27.5 mmol/L 21.0-31.0 [facility] Chloride [Moles/volume] in [place] or PlasmaOrdered By: Norberto Pires on 01-25-2024 Chloride [Moles/Vol] 106 mmol/L 98-107 [facility] Creatinine [Mass/volume] in Serum or PlasmaOrdered By: Norberto Pires on 01-25-2024 Creatinine [Mass/Vol] 1.80 mg/dL High 0.60-1.20 [facility] Eosinophils Auto (Bld) [#/Vo l]Ordered By: Norberto Pires on 01-25-2024 Eosinophils (Bld) [#/Vol] 0.3 10*3/uL 0.0-0.45 [facility] Eosinophils/100 WBC Auto (Bl d)Ordered By: Norberto Pires on 01-25-2024 Eosinophils/100 WBC (Bld) 3.2 % . [facility] Erythrocyte distribution wid th Auto (RBC) [Ratio]Ordered By: Norberto Pires on 01-25-2024 Erythrocyte distribution width (RBC) [Ratio] 17.3 % High 11.9-15.3 [facility] Glucose Glucometer (BldC) [M ass/Vol]Ordered By: Norberto Pires on 01-25-2024 Glucose [Mass/Vol] 149 mg/dL [facility] Comment on above: Random Glucose Refer ence Range is dependent on time and content of last meal. Glucose of more than 200 mg/dL in a nonstressed, ambulatory subject supports the diagnosis of Diabetes Mellitus. Glucose [Mass/volume] in Ser um or PlasmaOrdered By: Norberto Pires on 01-25-2024 Glucose [Mass/Vol] 75 mg/dL 70-100 [facility] Comment on above: ADA recommended refe rence rangeRandom Glucose Reference Range is dependent on time and content of last meal. Glucose of more than 200 mg/dL in a nonstressed, ambulatory subject supports the diagnosis of Diabetes Mellitus. Hematocrit Auto (Bld) [Volum e fraction]Ordered By: Norberto Pires on 01-25-2024 Hematocrit (Bld) [Volume fraction] 30.5 % Low 34.0-46.4 [facility] Hemoglobin [Mass/volume] in BloodOrdered By: Norberto Pires on 01-25-2024 Hemoglobin (Bld) [Mass/Vol] 9.8 g/dL Low 11.8-15.4 [facility] Leukocytes [#/volume] correc suzi for nucleated erythrocytes in Blood by Automated counOrdered By: Norberto Pires on 01-25-2024 WBC corrected for nucl RBC Auto (Bld) [#/Vol] 8.3 10*3/uL 3.8-11.6 [facility] Lymphocytes Auto (Bld) [#/Vo l]Ordered By: Norberto Pires on 01-25-2024 Lymphocytes (Bld) [#/Vol] 1.9 10*3/uL 1.00-4.8 [facility] Lymphocytes/100 WBC Auto (Bl d)Ordered By: Norberto Pires on 01-25-2024 Lymphocytes/100 WBC (Bld) 22.6 % . [facility] MCH Auto (RBC) [Entitic mass ]Ordered By: Norberto Pires on 01-25-2024 MCH (RBC) [Entitic mass] 32.7 pg 24.7-34.3 [facility] MCHC Auto (RBC) [Mass/Vol]Or dered By: Norberto Pires on 01-25-2024 MCHC (RBC) [Mass/Vol] 32.1 g/dL 32.0-35.0 [facility] MCV Auto (RBC) [Entitic vol] Ordered By: Norberto Pires on 01-25-2024 MCV (RBC) [Entitic vol] 101.8 fL High 80-100 [facility] Monocytes Auto (Bld) [#/Vol] Ordered By: Norberto Pires on 01-25-2024 Monocytes (Bld) [#/Vol] 0.8 10*3/uL 0.0-0.8 [facility] Monocytes/100 WBC Auto (Bld) Ordered By: Norberto Pires on 01-25-2024 Monocytes/100 WBC (Bld) 9.1 % . [facility] Neutrophils Auto (Bld) [#/Vo l]Ordered By: Norberto Pires on 01-25-2024 Neutrophils (Bld) [#/Vol] 5.4 10*3/uL 1.8-7.7 [facility] Neutrophils/100 WBC Auto (Bl d)Ordered By: Norberto Pires on 01-25-2024 Neutrophils/100 WBC (Bld) 64.6 % . [facility] No Panel InformationOrdered By: Norberto Pires on 01-25-2024 Estimated GFR (CKD-EPI) 28.482 mL/Min [facility] Creatinine Clearance (Chem 24.11 [facility] Nucleated erythrocytes [Pres ence] in Blood by Automated countOrdered By: Norberto Pires on 01-25-2024 Nucleated RBC Auto Ql (Bld) 0.1 /100{WBC} 0-0.5 [facility] Platelet mean volume Auto (B ld) [Entitic vol]Ordered By: Norberto Pires on 01-25-2024 Platelet mean volume (Bld) [Entitic vol] 9.1 fL 6.3-10.7 [facility] Platelets Auto (Bld) [#/Vol] Ordered By: Norberto Pires on 01-25-2024 Platelets (Bld) [#/Vol] 202 10*3/uL 150-450 [facility] Potassium [Moles/volume] in Serum or PlasmaOrdered By: Norberto Pires on 01-25-2024 Potassium [Moles/Vol] 3.6 mmol/L 3.5-5.1 [facility] RBC Auto (Bld) [#/Vol]Ordere d By: Nobrerto Pires on 01-25-2024 RBC (Bld) [#/Vol] 3.00 10*6/uL Low 3.60-5.00 [facility] Serum or plasma anion gap de terminationOrdered By: Norberto Pires on 01-25-2024 Anion gap [Moles/Vol] 10.1 mmol/L 6.0-15.0 [facility] Sodium [Moles/volume] in Ser um or PlasmaOrdered By: Norberto Pires on 01-25-2024 Sodium [Moles/Vol] 140 mmol/L 136-145 [facility] Urea nitrogen [Mass/volume] in Serum or PlasmaOrdered By: Norberto Pires on 01-25-2024 Urea nitrogen [Mass/Vol] 25 mg/dL 7-25 [facility] WBC Auto (Bld) [#/Vol]Ordere d By: Norberto Pires on 01-25-2024 WBC (Bld) [#/Vol] 8.3 10*3/uL 3.8-11.6 [facility] Alanine aminotransferase [En zymatic activity/volume] in Serum or PlasmaOrdered By: Norberto Pires on 01-24-2024 ALT [Catalytic activity/Vol] 3 U/L Low 7-52 [facility] Albumin [Mass/volume] in Ser um or Plasma by Bromocresol green (BCG) dye binding methoOrdered By: Norberto Pires on 01-24-2024 Albumin BCG dye [Mass/Vol] 3.2 g/dL Low 3.5-5.7 [facility] Alkaline phosphatase [Enzyma tic activity/volume] in Serum or PlasmaOrdered By: Norberto Pires on 01-24-2024 ALP [Catalytic activity/Vol] 49 U/L 34-104 [facility] Aspartate aminotransferase [ Enzymatic activity/volume] in Serum or PlasmaOrdered By: Norberto Pires on 01-24-2024 AST [Catalytic activity/Vol] 10 U/L Low 13-39 [facility] Bilirubin.total [Mass/volume ] in Serum or PlasmaOrdered By: Norberto Pires on 01-24-2024 Bilirubin [Mass/Vol] 0.2 mg/dL Low 0.3-1.0 [facility] Globulin Calc (S) [Mass/Vol] Ordered By: Norberto Pires on 01-24-2024 Globulin (S) [Mass/Vol] 3.0 g/dL [facility] No Panel InformationOrdered By: Norberto Pires on 01-24-2024 Bedside Glucose Comment Glu2: cleaned meter [facility] Protein [Mass/volume] in Ser um or PlasmaOrdered By: Norberto Pires on 01-24-2024 Protein [Mass/Vol] 6.2 g/dL Low 6.4-8.9 [facility] Serum or plasma albumin/glob ulin mass ratioOrdered By: Norberto Pires on 01-24-2024 Albumin/Globulin [Mass ratio] 1.1 {ratio} [facility] Activated partial thrombopla stin time (aPTT) in platelet poor plasma by coagulation aOrdered By: Norberto Pires on 01-23-2024 aPTT Coag (PPP) [Time] 30.7 s 25.1-36.5 [facility] Comment on above: A hematocrit value g reater than 55% may lead to inaccurate results in coagulation testing. Patients having hematocrit values >55% require a special collection tube for coagulation studies. Please contact the laboratory at [phone] for redraw instructions. Creatine kinase [Enzymatic a ctivity/volume] in Serum or PlasmaOrdered By: Norberto Pires on 01-23-2024 CK [Catalytic activity/Vol] 30 U/L 30-223 [facility] Creatine kinase.MB [Mass/vol ume] in Serum or PlasmaOrdered By: Norberto Pires on 01-23-2024 CK.MB [Mass/Vol] 2.3 ng/mL 0.6-6.3 [facility] INR in Platelet poor plasma by Coagulation assayOrdered By: Norberto Pires on 01-23-2024 INR Coag (PPP) [Relative time] 0.9 {INR} [facility] Comment on above: INR Therapeutic Rang e A) Pre- and Peroperative OAT started two weeks before surgery. NOT HIP SURGERY: 1.5 - 2.5 HIP SURGERY: 2 - 3B) Primary and secondary prevention of venous THROMBOSIS: 2 - 3C) Active venous thrombosis, pulmonary embolismand prevention of recurrent venous thrombosis: 2 - 3D) Prevention of arterial thromboembolismincluding patients with mechanical heart valves: 3 - 4.5 Prothrombin time (PT)Ordered By: Norberto Pires on 01-23-2024 PT Coag (PPP) [Time] 11.0 s 9.0-12.9 [facility] Comment on above: A hematocrit value g reater than 55% may lead to inaccurate results in coagulation testing. Patients having hematocrit values >55% require a special collection tube for coagulation studies. Please contact the laboratory at [phone] for redraw instructions. Serum or plasma creatine kin ase MB (CKMB)/total creatine kinase (CK) ratio by calculaOrdered By: Norberto Pires on 01-23-2024 CK.MB Calc [Catalytic fraction] 7.6 % High 0.00-2.50 [facility] Troponin I.cardiac [Mass/vol ume] in Serum or Plasma by Detection limit <= 0.01 ng/Ordered By: Norberto Pires on 01-23-2024 Troponin I.cardiac DL <= 0.01 ng/mL [Mass/Vol] 20.7 pg/mL High 0.0-15.0 [facility] Bacteria [Presence] in Urine by AutomatedOrdered By: Christen Oshea on 01-22-2024 Bacteria Auto Ql (U) Rare [HPF] None Seen [facility] Bilirubin Test strip Ql (U)O rdered By: Christen Oshea on 01-22-2024 Bilirubin Ql (U) Negative Negative [facility] Color Auto (U)Ordered By: Saira Oshea on 01-22-2024 Color (U) Colorless Yellow [facility] Epithelial cells.squamous [# /area] in Urine sediment by Automated countOrdered By: Christen Oshea on 01-22-2024 Epithelial cells.squamous Auto (Urine sed) [#/Area] 1-2 [HPF] 0-2 [facility] Erythrocytes [#/area] in Uri ne sediment by Automated countOrdered By: Christen Oshea on 01-22-2024 RBC Auto (Urine sed) [#/Area] 1-2 [HPF] 0-4 [facility] Glucose [Mass/volume] in Uri ne by Test stripOrdered By: Christen Oshea on 01-22-2024 Glucose Test strip (U) [Mass/Vol] Normal mg/dL Normal [facility] Hemoglobin Test strip Ql (U) Ordered By: Christen Oshea on 01-22-2024 Hemoglobin Ql (U) Negative Negative [facility] Hyaline casts [#/area] in Ur ine sediment by Automated countOrdered By: Christen Oshea on 01-22-2024 Hyaline casts Auto (Urine sed) [#/Area] 0-8 [LPF] 0-8 [facility] Ketones Test strip Ql (U)Ord ered By: Christen Oshea on 01-22-2024 Ketones Ql (U) Negative Negative [facility] Leukocyte clumps [Presence] in Urine by AutomatedOrdered By: Christen Oshea on 01-22-2024 Leukocyte clumps Auto Ql (U) Occasional [LPF] High None Seen [facility] Leukocyte esterase [Presence ] in Urine by Test stripOrdered By: Christen Oshea on 01-22-2024 Leukocyte esterase Test strip Ql (U) 1+ High Negative [facility] Leukocytes [#/area] in Urine sediment by Automated countOrdered By: Christen Oshea on 01-22-2024 WBC Auto (Urine sed) [#/Area] 5-9 [HPF] High 0-4 [facility] Monocyte distribution width [Entitic volume] in Blood by AutomatedOrdered By: Christen Oshea on 01-22-2024 Monocyte distribution width Auto (Bld) [Entitic vol] 19.69 % 0.00-20.00 [facility] Nitrite Test strip Ql (U)Ord ered By: Christen Oshea on 01-22-2024 Nitrite Ql (U) Negative Negative [facility] Protein Test strip (U) [Mass /Vol]Ordered By: Christen Oshea on 01-22-2024 Protein (U) [Mass/Vol] 50 mg/dL High Negative [facility] Specific gravity Test strip (U) [Rel density]Ordered By: Christen Oshea on 01-22-2024 Specific gravity (U) [Rel density] 1.010 1.001-1.030 [facility] Urine appearanceOrdered By: Christen Oshea on 01-22-2024 Appearance (U) Cloudy Abnormal Clear [facility] Urine culture routineOrdered By: Christen Oshea on 01-22-2024 Bacteria identified Cx Nom (U) [facility] Urobilinogen Test strip (U) [Mass/Vol]Ordered By: Christen Oshea on 01-22-2024 Urobilinogen (U) [Mass/Vol] Normal mg/dL Normal [facility] pH Test strip (U)Ordered By: Christen Oshea on 01-22-2024 pH (U) 7.0 [pH] 5.0-9.0 [facility] Home Health Recordson 2023 Home Health Records [id number] 5#1.00TIFF Normal [facility] Home Health Records [id number] F2#1.00TIFF Normal [facility] Basophils Auto (Bld) [#/Vol] on 12-06-2023 Basophils (Bld) [#/Vol] 0.0 10 3/uL 0.0-0.1 [facility] Basophils/100 WBC Auto (Bld) on 12-06-2023 Basophils/100 WBC (Bld) 0.3 % 0.2-2.0 [facility] Eosinophils/100 WBC Auto (Bl d)on 12-06-2023 Eosinophils/100 WBC (Bld) 2.9 % 0.9-7.0 [facility] Erythrocyte distribution wid th Auto (RBC) [Ratio]on 12-06-2023 Erythrocyte distribution width (RBC) [Ratio] 16.4 % High 11.0-15.0 [facility] Estimated glomerular filtrat ion rate (GFR) non- Americanon 12-06-2023 GFR/1.73 sq M.predicted among non-blacks MDRD (S/P/Bld) [Vol rate/Area] 20 mL/min/{1.73_m2} Low >=60 [facility] Globulin Calc (S) [Mass/Vol] on 12-06-2023 Globulin (S) [Mass/Vol] 4.3 g/dL [facility] Hematocrit Auto (Bld) [Volum e fraction]on 12-06-2023 Hematocrit (Bld) [Volume fraction] 31.8 % Low 36.0-48.0 [facility] Hemoglobin [Mass/volume] in Bloodon 12-06-2023 Hemoglobin (Bld) [Mass/Vol] 9.5 g/dL Low 12.0-16.0 [facility] Laboratory - Chemistry and C hemistry - challengeon 12-06-2023 Albumin [Mass/Vol] 2.8 g/dL Low 3.4-5.0 [facility] ALP [Catalytic activity/Vol] 55 U/L 46-116 [facility] ALT [Catalytic activity/Vol] 11 U/L Low 14-59 [facility] AST [Catalytic activity/Vol] 8 U/L Low 15-37 [facility] Bilirubin [Mass/Vol] 0.4 mg/dL 0.2-1.0 [facility] Calcium [Mass/Vol] 9.0 mg/dL 8.5-10.1 [facility] Chloride [Moles/Vol] 100 mmol/L 98-107 [facility] CO2 [Moles/Vol] 29.7 mmol/L 21.0-32.0 [facility] Cobalamin (Vitamin B12) [Mass/Vol] 380 pg/mL 232-1245 [facility] Comment on above: Performed at: [facility] [employer] [address] [id number] Director: Mohan Talbert PhD, Phone: [phone] Creatinine [Mass/Vol] 2.33 mg/dL High 0.55-1.02 [facility] Ferritin [Mass/Vol] 76.0 ng/mL 8.0-252.0 [facility] GFR/1.73 sq M.predicted MDRD (S/P/Bld) [Vol rate/Area] 24 mL/min/{1.73_m2} Low >=60 [facility] Glucose [Mass/Vol] 111 mg/dL High 74-106 [facility] LDH [Catalytic activity/Vol] 149 U/L 81-234 [facility] Potassium [Moles/Vol] 4.4 mmol/L 3.5-5.1 [facility] Protein [Mass/Vol] 7.1 g/dL 6.4-8.2 [facility] Sodium [Moles/Vol] 137 mmol/L 136-145 [facility] Urea nitrogen [Mass/Vol] 45.0 mg/dL High 7.0-18.0 [facility] Urea nitrogen/Creatinine [Mass ratio] 19.3 mg/mg [facility] Laboratory - Hematology and Cell countson 12-06-2023 Immature granulocytes/100 WBC (Bld) 0.3 % 0.0-0.5 [facility] Leukocytes [#/volume] correc suzi for nucleated erythrocytes in Blood by Automated counon 12-06-2023 WBC corrected for nucl RBC Auto (Bld) [#/Vol] 12.3 10 3/uL High 4.0-11.0 [facility] Lymphocytes Auto (Bld) [#/Vo l]on 12-06-2023 Lymphocytes (Bld) [#/Vol] 1.7 10 3/uL 1.2-3.8 [facility] Lymphocytes/100 WBC Auto (Bl d)on 12-06-2023 Lymphocytes/100 WBC (Bld) 13.7 % Low 20.5-60.0 [facility] MCH Auto (RBC) [Entitic mass ]on 12-06-2023 MCH (RBC) [Entitic mass] 31.0 pg 26.7-34.0 [facility] MCHC Auto (RBC) [Mass/Vol]on 12-06-2023 MCHC (RBC) [Mass/Vol] 29.9 g/dL 29.9-35.2 [facility] MCV Auto (RBC) [Entitic vol] on 12-06-2023 MCV (RBC) [Entitic vol] 103.9 fL High 81.0-99.0 [facility] Monocytes Auto (Bld) [#/Vol] on 12-06-2023 Monocytes (Bld) [#/Vol] 0.8 10 3/uL 0.3-0.8 [facility] Monocytes/100 WBC Auto (Bld) on 12-06-2023 Monocytes/100 WBC (Bld) 6.2 % 1.7-12.0 [facility] Neutrophils Auto (Bld) [#/Vo l]on 12-06-2023 Neutrophils (Bld) [#/Vol] 9.4 10 3/uL High 1.4-6.5 [facility] Neutrophils/100 WBC Auto (Bl d)on 12-06-2023 Neutrophils/100 WBC (Bld) 76.6 % High 43.0-75.0 [facility] No Panel Informationon 12-05 Eosinophils # (Auto) 0.4 10 3/uL 0.0-0.7 [facility] Folate 8.2 ng/mL >3.0 [facility] Comment on above: A serum folate oniel ntration of less than 3.1 ng/mL isconsidered to represent clinical deficiency.Performed at: [facility] [address] [id number] Director: Mohan Talbert PhD, Phone: [phone] Immature Granulocyte # (Auto) 0.04 10 3/uL High 0.00-0.03 [facility] Platelet mean volume Auto (B ld) [Entitic vol]on 12-06-2023 Platelet mean volume (Bld) [Entitic vol] 11.5 fL 9.5-13.5 [facility] Platelets Auto (Bld) [#/Vol] on 12-06-2023 Platelets (Bld) [#/Vol] 209 10 3/uL 150-450 [facility] RBC Auto (Bld) [#/Vol]on RBC (Bld) [#/Vol] 3.06 10 6/uL Low 4.20-5.40 [facility] Reticulocytes/100 RBC Auto ( Bld)on 12-06-2023 Reticulocytes/100 RBC (Bld) 2.59 % 0.60-3.10 [facility] Serum or plasma albumin/glob ulin mass ratioon 12-06-2023 Albumin/Globulin [Mass ratio] 0.7 {ratio} [facility] Serum or plasma anion gap de terminationon 12-06-2023 Anion gap [Moles/Vol] 11.7 mmol/L [facility] Albumin [Mass/volume] in Ser um or Plasma by Bromocresol green (BCG) dye binding methoOrdered By: Da Lozano on 12-02-2023 Albumin BCG dye [Mass/Vol] 3.7 g/dL 3.5-5.7 [facility] Cotinine [Mass/volume] in Se rum or PlasmaOrdered By: Da Lozano on 12-02-2023 Cotinine [Mass/Vol] <1.0 ng/mL . [facility] Comment on above: This test was develo ped and its performance characteristicsdetermined by [employer]. It has not been cleared orapproved by the Food and Drug Administration.Cotinine levels greater than 20.0 are consistent with theuse of tobacco or tobacco cessation products.Performed at: [address] [id number] Director: Navneet Carcamo MD, Phone: [phone] Glucose mean value [Mass/vol ume] in Blood Estimated from glycated hemoglobinOrdered By: Da Lozano on 12-02-2023 Average glucose Estimated from glycated hemoglobin (Bld) [Mass/Vol] 166 mg/dL [facility] Hemoglobin A1c percentageOrd ered By: Da Lozano on 12-02-2023 HbA1c (Bld) [Mass fraction] 7.4 % High 4.3-5.6 [facility] Comment on above: Increased risk for d iabetes: 5.7 - 6.4diabetes: >6.4glycemic control for adults with diabetes: <7.0 Hemoglobin [Mass/volume] in BloodOrdered By: Da Lozano on 12-02-2023 Hemoglobin (Bld) [Mass/Vol] 10.3 g/dL Low 11.8-15.4 [facility] Nicotine [Mass/volume] in Se rum or PlasmaOrdered By: Da Lozano on 12-02-2023 Nicotine [Mass/Vol] <1.0 ng/mL . [facility] Comment on above: This test was develo ped and its performance characteristicsdetermined by [employer]. It has not been cleared orapproved by the Food and Drug Administration.Nicotine levels greater than 2.0 are consistent with theuse of tobacco or tobacco cessation products. Vitamin D+Metabolites [Mass/ volume] in Serum or PlasmaOrdered By: Da Lozano on 12-02-2023 Vitamin D+Metabolites [Mass/Vol] 91.9 ng/mL 30-100 [facility] Comment on above: VITAMIN D STATUS [...] (Unsp spec) No MRSA Isolated 2 Days [facility] Glucose mean value [Mass/vol ume] in Blood Estimated from glycated hemoglobinon 11-22-2023 Average glucose Estimated from glycated hemoglobin (Bld) [Mass/Vol] 160 mg/dL [facility] Laboratory - Hematology and Cell countson 11-22-2023 HbA1c (Bld) [Mass fraction] 7.2 % High 4.5-6.2 [facility] Comment on above: ADA RECOMMENDED LIMI T 4.0 - 6.0ADA THERAPEUTIC TARGET < 7.0ACTION SUGGESTED> 7.0 Laboratory - Chemistry and C hemistry - challengeon 10-23-2023 Bilirubin Ql (U) Negative [facility] Glucose (U) [Mass/Vol] Negative [facility] Ketones Ql (U) Negative [facility] pH (U) 5 [pH] [facility] Specific gravity (U) [Rel density] 1.000 [facility] Urobilinogen (U) [Mass/Vol] 0.2 mg/dL [facility] Laboratory - Specimen inform ationon 10-23-2023 Appearance (U) Cloudy [facility] Color (U) Yellow [facility] Laboratory - Urinalysison Leukocyte esterase Test strip Ql (U) +++ [facility] Nitrite Ql (U) Negative [facility] Protein Ql (U) Negative [facility] No Panel Informationon 10-22 Urine Occult Blood Negative [facility] Home Health Recordson 2023 Home Health Records [id number] 3C#1.00TIFF Normal [facility] NM Heart Perfusion W stress and W radionuclide [place] 10-14-2023 Abnormal Lexiscan Myoview cardiac perfusion stress test. No myocardial ischemia by perfusion imaging. No myocardial infarction by perfusion imaging. Abnormal left ventricular systolic function with mild global hypokinesis. Left ventricular ejection fraction 48 %. No previous studies are available for comparison. Signed by: Charlotte Cordon 10/14/2023 4:27 PM Dictation workstation: [id number] Interpreted By: Charlotte Cordon and Giannuzzi Michael STUDY: MYOCARDIAL PERFUSION STRESS TEST WITH LEXISCAN Performing facility: [facility], [address] [place] [address], [address], [address] Provider: Joey Morales MD, [facility] PCP: Dr. Marsha Best Supervising provider: Joey Cobb DO, [facility] INDICATION: CAD; CABG ICM SOB; HISTORY: Gender: F; Age: 78 y/o ; Height: HT 149.9 cm cm; Weight: WT 74.844 kg kg. High Cholesterol; CAD; Diabetes; Previous FL; HTN; SOB; Quit smoking 27 years ago. Cardiac catheterization on 2017. PTCA on 2017. CABG on 2017. COMPARISON: No comparison. ACCESSION NUMBER(S): [id number] ORDERING CLINICIAN: TOM MORALES TECHNIQUE: ONE DAY [...] STRESS TEST WITH LEXISCAN Performing facility: [facility], [address] [place] [address], [address], [address] Provider: Joey Morales MD, [facility] PCP: Dr. Marsha Best Supervising provider: Joey Cobb DO, [facility] INDICATION: CAD; CABG ICM SOB; HISTORY: Gender: F; Age: 78 y/o ; Height: HT 149.9 cm cm; Weight: WT 74.844 kg kg. High Cholesterol; CAD; Diabetes; Previous FL; HTN; SOB; Quit smoking 27 years ago. Cardiac catheterization on 2017. PTCA on 2017. CABG on 2017. COMPARISON: No comparison. ACCESSION NUMBER(S): [id number] ORDERING CLINICIAN: TOM MORALES TECHNIQUE: ONE DAY [...] Charlotte Cordon 10/14/2023 4:27 PM Dictation workstation: [id number] [facility] Work Phone: Radiology Study observation (narrative) [facility] Work Phone: NM Heart Perfusion W stress and W radionuclide IVOrdered By: Charlotte Cordon on 10-14-2023 [facility] Work Phone: NUCLEAR STRESS TESTon 2023 NUCLEAR STRESS TEST Interpreted By: Charlotte Cordon and Giannuzzi Michael STUDY: MYOCARDIAL PERFUSION STRESS TEST WITH LEXISCAN Performing facility: [facility], [address] [place] [address], [address], [address] Provider: Joey Morales MD, [facility] PCP: Dr. Marsha Best Supervising provider: Joey Cobb DO, [facility] INDICATION: CAD; CABG ICM SOB; HISTORY: Gender: F; Age: 78 y/o ; Height: HT 149.9 cm cm; Weight: WT 74.844 kg kg. High Cholesterol; CAD; Diabetes; Previous FL; HTN; SOB; Quit smoking 27 years ago. Cardiac catheterization on 2017. PTCA on 2017. CABG on 2017. COMPARISON: No comparison. ACCESSION NUMBER(S): [id number] ORDERING CLINICIAN: TOM MORALES TECHNIQUE: ONE DAY [...] Charlotte Cordon 10/14/2023 4:27 PM Dictation workstation: [id number] [facility] Home Health Recordson 2023 Home Health Records [id number] 6F#1.00TIFF Normal [facility] Retail - Clinical Noteon Retail - Clinical Note [id number] 52#1.00TIFF Normal [facility] Home Health Recordson 2023 Home Health Records [id number] 42#1.00TIFF Normal [facility] Home Health Recordson 2023 Home Health Records [id number] 2A#1.00TIFF [facility] Home Health Records [id number] BC#1.00TIFF [facility] Home Health Recordson 2023 Home Health Records [id number] DA#1.00TIFF [facility] Home Health Recordson 2023 Home Health Records [id number] 8E#1.00TIFF [facility] ECG 12-Leadon 09-09-2023 ECG 12-Lead [id number] 37#1.00TIFF [facility] Health Recordson 2023 Home Health Records [id number] A0#1.00TIFF [facility] ED Note-Physicianon 09-01-19 24 ED Note-Physician [id number] 20#1.00TIFF [facility] RAD - MISCon 09-01-2023 RAD - MISC [id number] 4E#1.00TIFF [facility] Ambulatory Visit Summaryon 0 08-21-2023 Ambulatory Visit Summary LEXI TATUM Nestor :1945 [...] 3:40 PM EDT With: Maxine Sanchez Where: [facility] Kiera Normal [facility] Family Medicine Office/Clini c Noteon 08-21-2023 [...] of clutter to prevent tripping and/or falling. 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 Patient denies any problems with ADL?s [...] (more content not included)... Normal [facility] Comment on above: Result Comment: Elec [...] EST, Weight Dosing HgbA1c Lab Specimen Collect [id number] 3. Long-term insulin use (Z79.4: detention (current) use of insulin) insulins changed to [...] virus vaccine, inactivated 07/03/2022 Recorded SARS-CoV-2 (COVID-19) mRNAMUL.ORD![id number] 06/17/2022 Re (more content not included)... Normal [facility] Comment on above: Result Comment: Elec tronically Signed By: Maxine Sanchez\\.mane\\Date and Time Signed: 08/21/23 08:02 EST Formson 08-21-2023 Forms [id number] 0F#1.00TIFF Normal [facility] [id number] 08-21-2023 HbA1c (Bld) [Mass fraction] 8.2 % High <=5.9 [facility] Comment on above: Performed By: #### 7 [id number] #### [facility] Laboratory [address] [place] [address] Patient Educationon 08-21-19 24 Patient Education Caregiving [...] night-lights. ? Place frequently used items in [id number] places. Lower the shelves around your home [...] the way. ? Do not use floor telugu or wax that makes floors slippery. If [...] include working with a physical therapist or human resources trainer to improve your strength, balance, and endurance. Where to find more information ? Centers for Disease Control and Prevention, [place]: www.cdc.gov ? National [place] on Aging: www.jasmina.nih.gov Contact a health care [...] health ca (more content not included)... Normal [facility] Ambulatory Visit Summaryon 0 08-20-2023 Ambulatory [...] 3:40 PM EDT With: Maxine Sanchez Where: [facility] Ambulatory Visit Summary RC LEXI Baez :1945 [...] for choosing us for your care. Normal [facility] Pre-Visit Planningon 023 Pre-Visit Planning -- [...] feel free to contact me at extension [phone]. Thank you! Bibiana Walter LPN -- From: Maxine Sanchez To: Bibiana Walter; Sent: 05/28/2023 14:06:51 EST Subject: RE: Pre-Visit Planning Caller Name: LEXI TATUM; Caller Number: H , M chronic kidney disease stage 3, unspecified Normal [address] [place] [address] Pre-Visit Planning -- From: Bibiana Walter To: [...] Type 1 diabetes and hypercholesterolemi a Normal [address] [facility] Ambulatory Visit Summaryon 07-21-2022 Ambulatory Visit Summary [...] 11:00 AM EST With: Maxine Sanchez Where: [facility] Family Medicine Office/Clini c Noteon [...] 3 months. Ordered: HgbA1c Lab Specimen Collect [id number] 2. Long-term insulin use (Z79.4: long term care social worker (current) use of insulin) see above Ordered: HgbA1c Lab Specimen Collect [id number] 3. Former smoker (Z87.891: Personal history of [...] virus vaccine, inactivated 07/03/2022 Recorded SARS-CoV-2 (COVID-19) mRNAMUL.ORD![id number] 06/17/2022 Recorded 2023-02-10: [id number] SARS-CoV-2 (COVID-19) mRNA [...] pneumococcal 13-valent vaccine 10/30/2016 Recorded Normal [facility] Comment on above: Result Comment: Elec tronically Signed By: Maxine Sanchez\\.br\\Date and Time Signed: 05/21/23 13:14 EST [id number] 05-21-2023 HbA1c (Bld) [Mass fraction] 8.7 % High <=5.9 [facility] Comment on above: Performed By: #### 7 [id number] #### [facility] Laboratory [address] [place] [address] Ambulatory Visit Summaryon 0 03-05-2023 Ambulatory Visit [...] Appointments Friday 1:00 PM EDT With: Where: [facility] Normal [address] [place] [address]- \\.br\\ Medications\\.br\\ What How Much When Why [...] Vitamin D deficiency\\.br\\ Wellness examination\\.br\\ \\.br\\ [facility] Family Medicine Office/Clini c Noteon 03-05-2023 [...] continue BS log. may consider referral to fur glazer at that visit. 2. Flank pain (R10.9: [...] virus vaccine, inactivated 07/03/2022 Recorded SARS-CoV-2 (COVID-19) mRNAMUL.[id number] 06/17/2022 Recorded 2023-02-10: [id number] SARS-CoV-2 (COVID-19) mRNA [...] 13-valent vaccine 10/30/2016 Recorded Normal [facility] Comment on above: Result Comment: Elec tronically Signed By: Maxine Sanchez\\.br\\Date and Time Signed: 03/05/23 14:10 EDT CHEMISTRYOrdered [...] 1.4 mg/dL High 0.5 - 1.3 mg/dL FT Remisol GFR/1.73 sq M.predicted among non-blacks MDRD [...] 10.1 fL Normal 6.4 - 10.8 fL [facility] HemeAutoSS Platelets (Bld) [#/Vol] 192.0 E9/L Normal 150.0 - 500.0 E9/L [facility] HemeAutoSS RBC (Bld) [#/Vol] 4.2 E12/L Low 4.3 - 5.9 E12/L [facility] HemeAutoSS WBC corrected for nucl RBC Auto (Bld) [#/Vol] 7.6 E9/L Normal 4.0 - 11.0 E9/L [facility] HemeAutoSS Office Visit (Cardiology)on 07-25-2022 Follow-up visit Diagnoses/Problems Assessed S/P CABG x 3 (V45.81) (Z95.1) Ischemic cardiomyopathy (414.8) (I25.5) Hyperlipidemia (272.4) (E78.5) HTN (hypertension) (401.9) (I10) History of angioplasty (V45.89) (Z98.62) History of Dyslipidemia (272.4) (E78.5) CAD, multiple vessel (414.00) (I25.10) History of FL (myocardial infarction) (412) (I25.2) Statin intolerance (995.27) [...] - Retrospective Authorization; Done: 25Jul2022 History of FL (myocardial infarction), HTN (hypertension) Renew: Carvedilol 25 MG Oral Tablet; Take 1 tablet twice daily Occlusion and stenosis of right carotid artery, PVD (peripheral vascular disease) Renew: Clopidogrel Bisulfate 75 MG Oral Tablet; Take 1 tablet daily SocHx: Former smoker Tobacco Use Screening; Status:Complete; Done: [id number] Unlinked Stop: Gabapentin 100 MG TABS Patient [...] History of angioplasty (V45.89) (Z98.62) History of FL (myocardial infarction) (412) (I25.2) HTN (hypertension) (401.9) [...] Screening.on 023 Adult depression screening assessment No MARIO-Daja Peraza 250 DO Work Phone: Fall risk assessment a) No falls within the last year [facility]-Marquita 250 DO Work Phone: Tobacco use status CP b) No [facility]-Rinard 250 DO Work Phone: CBC AUTO DIFFon 01-30-2022 BASO # 0.0 103/ul Normal 0.0-0.[address] [facility] Comment on above: Performed By: #### C BC #### [facility] [address] [place] [address] Dr. Yarely Roe Basophils/100 WBC (Bld) 0.4 % Normal 0.2-2.0 [facility] Comment on above: Performed By: #### C BC #### [facility] [address] [place] [address] Dr. Yarely Roe EO # 0.2 103/ul Normal 0.0-0.[address] [facility] Comment on above: Performed By: #### C BC #### [facility] [address] [place] [address] Dr. Yarely Roe Eosinophils/100 WBC (Bld) 2.3 % Normal 0.9-7.0 [facility] Comment on above: Performed By: #### C BC #### [facility] [address] [place] [address] Dr. Yarely Roe Erythrocyte distribution width (RBC) [Ratio] 14.8 % Normal 11.0-15.0 [facility] Comment on above: Performed By: #### C BC #### [facility] [address] [place] [address] Dr. Yarely Roe Hematocrit (Bld) [Volume fraction] 42.0 % Normal 36.0-48.0 [facility] Comment on above: Performed By: #### C BC #### [facility] [address] [place] [address] Dr. Yarely Roe Hemoglobin (Bld) [Mass/Vol] 13.7 g/dL Normal 12.0-16.0 [facility] Comment on above: Performed By: #### C BC #### [facility] [address] [place] [address] Dr. Yarely Roe IG # 0.03 10e3/ul Normal 0.00-0.[address] [facility] Comment on above: Performed By: #### C BC #### [facility] [address] [place] [address] Dr. Yarely Roe IG % 0.4 % Normal 0.0-0.[address] [facility] Comment on above: Performed By: #### C BC #### [facility] [address] [place] [address] Dr. Yarely Roe LYMPH # 1.7 103/ul Normal 1.2-3.[address] [facility] Comment on above: Performed By: #### C BC #### [facility] [address] [place] [address] Dr. Yarely Roe Lymphocytes/100 WBC (Bld) 20.7 % Normal 20.5-60.[address] [facility] Comment on above: Performed By: #### C BC #### [facility] [address] [place] [address] Dr. Yarely Roe MANUAL DIFF REQ NO Normal [facility] Comment on above: Performed By: #### C BC #### [facility] [address] [place] [address] Dr. Yarely Roe MCH (RBC) [Entitic mass] 31.9 pg Normal 26.7-34.[address] [facility] Comment on above: Performed By: #### C BC #### [facility] [address] [place] [address] Dr. Yarely Roe MCHC (RBC) [Mass/Vol] 32.6 g/dL Normal 29.9-35.2 [facility] Comment on above: Performed By: #### C BC #### [facility] [address] [place] [address] Dr. Yarely Roe MCV (RBC) [Entitic vol] 97.7 fL Normal 81.0-99.[address] [facility] Comment on above: Performed By: #### C BC #### [facility] [address] [place] [address] Dr. Yarely Roe MONO # 0.5 103/ul Normal 0.3-0.8 [facility] Comment on above: Performed By: #### C BC #### [facility] [address] [place] [address] Dr. Yarely Roe Monocytes/100 WBC (Bld) 5.9 % Normal 1.7-12.[address] [facility] Comment on above: Performed By: #### C BC #### [facility] [address] [place] [address] Dr. Yarely Roe NEUT # 5.7 103/ul Normal 1.4-6.[address] [facility] Comment on above: Performed By: #### C BC #### [facility] [address] [place] [address] Dr. Yarely Roe Neutrophils/100 WBC (Bld) 70.3 % Normal 43.0-75.[address] [facility] Comment on above: Performed By: #### C BC #### [facility] [address] [place] [address] Dr. Yarely Roe Platelet mean volume (Bld) [Entitic vol] 11.0 fL Normal 9.5-13.5 [facility] Comment on above: Performed By: #### C BC #### [facility] [address] [place] [address] Dr. Yarely Roe PLT 196 103/ul Normal 150-450 [facility] Comment on above: Performed By: #### C BC #### [facility] [address] [place] [address] Dr. Yarely Roe RBC 4.30 106/ul Normal 4.20-5.40 [facility] Comment on above: Performed By: #### C BC #### [facility] [address] [place] [address] Dr. Yarely Roe WBC 8.1 103/ul Normal 4.0-11.0 [facility] Comment on above: Performed By: #### C BC #### [facility] [address] [place] [address] Dr. Yarely Roe GLYCOHEMOGLOBIN A1Con 2021 ADA RECOMMENDATION SEE BELOW Normal [facility] Comment on above: Result Comment: ADA RECOMMENDED LIMIT 4.0 - 6.0 ADA THERAPEUTIC TARGET < 7.0 ACTION SUGGESTED > 7.0 Performed By: #### A 1C #### [facility] [address] [place] [address] Dr. Yarely Roe Glucose [Mass/Vol] 223 mg/dL Normal [facility] Comment on above: Performed By: #### A 1C #### [facility] [address] [place] [address] Dr. Yarely Roe HbA1c (Bld) [Mass fraction] 9.4 % Critically high 4.5-6.2 [facility] Comment on above: Performed By: #### A 1C #### [facility] [address] [place] [address] Dr. Yarely Roe PROF CHEM 8 (BAS METB)on Anion gap [Moles/Vol] 13.4 mmol/L Normal [facility] Comment on above: Performed By: #### B MP #### [facility] [address] [place] [address] Dr. Yarely Roe Calcium [Mass/Vol] 9.5 mg/dL Normal 8.5-10.1 [facility] Comment on above: Performed By: #### B MP #### [facility] [address] [place] [address] Dr. Yarely Roe Chloride [Moles/Vol] 101 mmol/L Normal 98-107 [facility] Comment on above: Performed By: #### B MP #### [facility] [address] [place] [address] Dr. Yarely Roe CO2 [Moles/Vol] 28.6 mmol/L Normal 21.0-32.0 [facility] Comment on above: Performed By: #### B MP #### [facility] [address] [place] [address] Dr. Yarely Roe Creatinine [Mass/Vol] 1.46 mg/dL Critically high 0.55-1.[address] [facility] Comment on above: Performed By: #### B MP #### [facility] [address] [place] [address] Dr. Yarely Roe EGFR-AF LIBERIAN 42 mL/min/1.73m2 Critically low >=[address] [facility] Comment on above: Performed By: #### B MP #### [facility] [address] [address] [address] Yarely Roe EGFR-NON AF LIBERIAN 35 mL/min/1.73m2 Critically low >=[address] [facility] Comment on above: Performed By: #### B MP #### [facility] [address] [address] [address] Yarely Roe Glucose [Mass/Vol] 288 mg/dL Critically high 74-106 [facility] Comment on above: Performed By: #### B MP #### [facility] [address] [address] [address] Yarely Roe Potassium [Moles/Vol] 4.0 mmol/L Normal 3.5-5.[address] [facility] Comment on above: Performed By: #### B MP #### [facility] [address] [address] [address] Yarely Roe Sodium [Moles/Vol] 139 mmol/L Normal 136-[address] [facility] Comment on above: Performed By: #### B MP #### [facility] [address] [address] [address] Yarely Roe Urea nitrogen [Mass/Vol] 27.0 mg/dL Critically high 7.0-18.[address] [facility] Comment on above: Performed By: #### B MP #### [facility] [address] [address] [address] Yarely Roe Urea nitrogen/Creatinine [Mass ratio] 18.5 mg/mg Normal [facility] Comment on above: Performed By: #### B MP #### [facility] [address] [address] [address] Yarely Roe PROF CHEM 8 (BAS METB)on Anion gap [Moles/Vol] 11.9 mmol/L Normal [facility] Comment on above: Performed By: #### B MP #### [facility] [address] [address] [address] Yarely Roe Calcium [Mass/Vol] 9.1 mg/dL Normal 8.5-10.[address] [facility] Comment on above: Performed By: #### B MP #### [facility] [address] [address] [address] Yarely Roe Chloride [Moles/Vol] 100 mmol/L Normal 98-[address] [facility] Comment on above: Performed By: #### B MP #### [facility] [address] [address] [address] Yarely Roe CO2 [Moles/Vol] 30.8 mmol/L Normal 21.0-32.[address] [facility] Comment on above: Performed By: #### B MP #### [facility] [address] [place] [address] Dr. Yarely Roe Creatinine [Mass/Vol] 1.27 mg/dL Critically high 0.55-1.[address] [facility] Comment on above: Performed By: #### B MP #### [facility] [address] [place] [address] Dr. Yarely Roe EGFR-AF LIBERIAN 50 mL/min/1.73m2 Critically low >=[address] [facility] Comment on above: Performed By: #### B MP #### [facility] [address] [place] [address] Dr. Yarely Roe EGFR-NON AF LIBERIAN 41 mL/min/1.73m2 Critically low >=[address] [facility] Comment on above: Performed By: #### B MP #### [facility] [address] [address] [address] Yarely Roe Glucose [Mass/Vol] 166 mg/dL Critically high 74-106 [facility] Comment on above: Performed By: #### B MP #### [facility] [address] [address] [address] Yarely Roe Potassium [Moles/Vol] 3.7 mmol/L Normal 3.5-5.[address] [facility] Comment on above: Performed By: #### B MP #### [facility] [address] [address] [address] Yarely Roe Sodium [Moles/Vol] 139 mmol/L Normal 136-[address] [facility] Comment on above: Performed By: #### B MP #### [facility] [address] [address] [address] Yarely Roe Urea nitrogen [Mass/Vol] 20.0 mg/dL Critically high 7.0-18.[address] [facility] Comment on above: Performed By: #### B MP #### [facility] [address] [address] [address] Yarely Roe Urea nitrogen/Creatinine [Mass ratio] 15.7 mg/mg Normal [facility] Comment on above: Performed By: #### B MP #### [facility] [address] [address] [address] Yarely Roe Office Visit (Cardiology)on 11-02-2021 Follow-up visit Diagnoses/Problems Assessed Hyperlipidemia (272.4) (E78.5) Ischemic cardiomyopathy (414.8) (I25.5) HTN (hypertension) (401.9) (I10) History of FL (myocardial infarction) (412) (I25.2) CAD, multiple vessel [...] Metabolic Panel; Status:Active - Retrospective Authorization; Requested for:[id number]; CAD, multiple vessel, Hyperlipidemia Renew: Rosuvastatin Calcium [...] signing my name below, I, Christen Pastrana LPN ,Scribe, attest that this documentation has been prepared [...] 2:24:53 PM (more content not included)... Normal JANZZ Tobacco Screening.on 022 Adult depression screening assessment No [facility] [employer] DO Work Phone: Fall risk assessment a) No falls within the last year [facility] [employer] 250 DO Work Phone: Tobacco use status CPHS b) No [facility] [employer] 250 DO Work Phone: XR LSPINE MIN [...] Vascular calcifications. Right pelvic vascular stent. IMPRESSION: [id number] degenerative changes with minimal anterolisthesis of L4 and L5 Electronically authenticated by: ALISSA RAMIREZ Date: 2021-10-16 07:05 Normal [facility] CBC AUTO DIFFon 10-15-2021 BASO # 0.0 103/ul Normal 0.0-0.1 [facility] Comment on above: Performed By: #### C BC #### [facility] [address] [place] [address] Dr. Yarely Roe Basophils/100 WBC (Bld) 0.3 % Normal 0.2-2.0 [facility] Comment on above: Performed By: #### C BC #### [facility] [address] [place] [address] Dr. Yarely Roe EO # 0.3 103/ul Normal 0.0-0.7 [facility] Comment on above: Performed By: #### C BC #### [facility] [address] [place] [address] Dr. Yarely Roe Eosinophils/100 WBC (Bld) 3.4 % Normal 0.9-7.0 [facility] Comment on above: Performed By: #### C BC #### [facility] [address] [place] [address] Dr. Yarely Roe Erythrocyte distribution width (RBC) [Ratio] 15.1 % Critically high 11.0-15.0 [facility] Comment on above: Performed By: #### C BC #### [facility] [address] [place] [address] Dr. Yarely Roe Hematocrit (Bld) [Volume fraction] 42.1 % Normal 36.0-48.0 [facility] Comment on above: Performed By: #### C BC #### [facility] [address] [place] [address] Dr. Yarely Roe Hemoglobin (Bld) [Mass/Vol] 13.5 g/dL Normal 12.0-16.0 [facility] Comment on above: Performed By: #### C BC #### [facility] [address] [place] [address] Dr. Yarely Roe IG # 0.04 10e3/ul Critically high 0.00-0.[address] [facility] Comment on above: Performed By: #### C BC #### [facility] [address] [place] [address] Dr. Yarely Roe IG % 0.4 % Normal 0.0-0.[address] [facility] Comment on above: Performed By: #### C BC #### [facility] [address] [place] [address] Dr. Yarely Roe LYMPH # 2.1 103/ul Normal 1.2-3.[address] [facility] Comment on above: Performed By: #### C BC #### [facility] [address] [place] [address] Dr. Yarely Roe Lymphocytes/100 WBC (Bld) 22.9 % Normal 20.5-60.[address] [facility] Comment on above: Performed By: #### C BC #### [facility] [address] [place] [address] Dr. Yarely Roe MANUAL DIFF REQ NO Normal [facility] Comment on above: Performed By: #### C BC #### [facility] [address] [place] [address] Dr. Yarely Roe MCH (RBC) [Entitic mass] 31.5 pg Normal 26.7-34.[address] [facility] Comment on above: Performed By: #### C BC #### [facility] [address] [place] [address] Dr. Yarely Roe MCHC (RBC) [Mass/Vol] 32.1 g/dL Normal 29.9-35.2 [facility] Comment on above: Performed By: #### C BC #### [facility] [address] [place] [address] Dr. Yarely Roe MCV (RBC) [Entitic vol] 98.1 fL Normal 81.0-99.[address] [facility] Comment on above: Performed By: #### C BC #### [facility] [address] [place] [address] Dr. Yarely Roe MONO # 0.6 103/ul Normal 0.3-0.[address] [facility] Comment on above: Performed By: #### C BC #### [facility] [address] [place] [address] Dr. Yarely Roe Monocytes/100 WBC (Bld) 6.1 % Normal 1.7-12.[address] [facility] Comment on above: Performed By: #### C BC #### [facility] [address] [place] [address] Dr. Yarely Roe NEUT # 6.2 103/ul Normal 1.4-6.[address] [facility] Comment on above: Performed By: #### C BC #### [facility] [address] [place] [address] Dr. Yarely Roe Neutrophils/100 WBC (Bld) 66.9 % Normal 43.0-75.[address] [facility] Comment on above: Performed By: #### C BC #### [facility] [address] [place] [address] Dr. Yarely Roe Platelet mean volume (Bld) [Entitic vol] 10.9 fL Normal 9.5-13.[address] [facility] Comment on above: Performed By: #### C BC #### [facility] [address] [place] [address] Dr. Yarely Roe PLT 220 103/ul Normal 150-450 [facility] Comment on above: Performed By: #### C BC #### [facility] [address] [place] [address] Dr. Yarely Roe RBC 4.29 106/ul Normal 4.20-5.40 [facility] Comment on above: Performed By: #### C BC #### [facility] [address] [place] [address] Dr. Yarely Roe WBC 9.2 103/ul Normal 4.0-11.[address] [facility] Comment on above: Performed By: #### C BC #### [facility] [address] [place] [address] Dr. Yarely Roe GLYCOHEMOGLOBIN A1Con 2021 ADA RECOMMENDATION ADA THERAPEUTIC TARGET 6.0 - 7.0 ACTION SUGGESTED > 7.[address] [facility] Comment on above: Performed By: #### A 1C #### [facility] [address] [place] [address] Dr. Yarely Roe Glucose [Mass/Vol] 183 mg/dL Normal [facility] Comment on above: Performed By: #### A 1C #### [facility] [address] [place] [address] Dr. Yarely Roe HbA1c (Bld) [Mass fraction] 8.0 % Critically high <=6.[address] [facility] Comment on above: Performed By: #### A 1C #### [facility] [address] [place] [address] Dr. Yarely Roe PROF 14(COMP METB)on 022 Albumin [Mass/Vol] 3.4 g/dL Normal 3.4-5.[address] [facility] Comment on above: Performed By: #### C MP #### [facility] [address] [place] [address] Dr. Yarely Roe Albumin/Globulin [Mass ratio] 0.8 {ratio} Normal [facility] Comment on above: Performed By: #### C MP #### [facility] [address] [place] [address] Dr. Yarely Roe ALP [Catalytic activity/Vol] 59 U/L Normal 46-[address] [facility] Comment on above: Performed By: #### C MP #### [facility] [address] [place] [address] Dr. Yarely Roe ALT [Catalytic activity/Vol] 9 U/L Critically low 14-[address] [facility] Comment on above: Performed By: #### C MP #### [facility] [address] [place] [address] Dr. Yarely Roe Anion gap [Moles/Vol] 11.3 mmol/L Normal [facility] Comment on above: Performed By: #### C MP #### [facility] [address] [place] [address] Dr. Yarely Roe AST [Catalytic activity/Vol] 15 U/L Normal 15-[address] [facility] Comment on above: Performed By: #### C MP #### [facility] [address] [address] [address] Yarely Roe Bilirubin [Mass/Vol] 0.3 mg/dL Normal 0.2-1.[address] [facility] Comment on above: Performed By: #### C MP #### [facility] [address] [address] [address] Yarely Roe Calcium [Mass/Vol] 9.4 mg/dL Normal 8.5-10.[address] [facility] Comment on above: Performed By: #### C MP #### [facility] [address] [address] [address] Yarely Roe Chloride [Moles/Vol] 97 mmol/L Critically low 98-[address] [facility] Comment on above: Performed By: #### C MP #### [facility] [address] [address] [address] Yarely Roe CO2 [Moles/Vol] 33.0 mmol/L Critically high 22.0-30.[address] [facility] Comment on above: Performed By: #### C MP #### [facility] [address] [address] [address] Yarely Roe Creatinine [Mass/Vol] 1.40 mg/dL Critically high 0.52-1.[address] [facility] Comment on above: Performed By: #### C MP #### [facility] [address] [address] [address] Yarely Roe EGFR-AF LIBERIAN 44 mL/min/1.73m2 Critically low >=60 [facility] Comment on above: Performed By: #### C MP #### [facility] [address] [address] [address] Yarely Roe EGFR-NON AF LIBERIAN 37 mL/min/1.73m2 Critically low >=60 [facility] Comment on above: Performed By: #### C MP #### [facility] [address] [address] [address] Yarely Roe Globulin (S) [Mass/Vol] 4.3 g/dL Normal [facility] Comment on above: Performed By: #### C MP #### [facility] [address] [address] [address] Yarely Roe Glucose [Mass/Vol] 224 mg/dL Critically high 74-106 T [facility] Comment on above: Performed By: #### C MP #### [facility] [address] [address] [address] Yarely Roe Potassium [Moles/Vol] 3.3 mmol/L Critically low 3.4-5.[address] [facility] Comment on above: Performed By: #### C MP #### [facility] [address] [address] [address] Yareyl Roe Protein [Mass/Vol] 7.7 g/dL Normal 6.1-8.[address] [facility] Comment on above: Performed By: #### C MP #### [facility] [address] [address] [address] Yarely Roe Sodium [Moles/Vol] 138 mmol/L Normal 137-[address] [facility] Comment on above: Performed By: #### C MP #### [facility] [address] [address] [address] Yarely Roe Urea nitrogen [Mass/Vol] 27.0 mg/dL Critically high 7.0-18.[address] [facility] Comment on above: Performed By: #### C MP #### [facility] [address] [address] [address] Yarely Roe Urea nitrogen/Creatinine [Mass ratio] 19.3 mg/mg Normal [facility] Comment on above: Performed By: #### C MP #### [facility] [address] [address] [address] Yarely Roe [facility] Carotid Artery Dupl ex Ultrasounon 05-08-2020 [facility] Carotid Artery Duplex Ultrasoun [address], [address] [place] [address] Vascular Lab Report Carotid Artery Duplex Ultrasound Patient Name: LEXI CASTILLO Reading Physician: [id number] Charlotte Cordon MD, [facility] Study Date: 05/08/2020 Referring Physician: [id number] Tom Morales MD MRN/PID: [id number] PCP: Li Lee Accession/Order#: [id number] CC Report to: Date of : 1945 Technologist: Surekha Hartley RDCS, RVT Gender: F Technologist 2: Admission Status: Outpatient Location Performed: [facility] Diagnosis/ICD: R09.89-Other specified symptoms and signs involving the circulatory and respiratory systems Indication: Diabetes, Hyperlipidemia, Former Smoker, Vertigo, CAD, CABG, Ischemic Cardiomyopathy, PTCA, [place], Obesity Procedure/CPT: 80479 Cerebrovascular Carotid Duplex scan complete-[id number] CONCLUSIONS: Right Carotid: Findings are consistent with [...] cm/s Right Left ICA/CCA Ratio 2.2 0.9 [id number] Charlotte Cordon MD, FACC Final Normal [facility] HEMOGLOBIN A1Con 06-17-2019 HbA1c (Bld) [Mass fraction] 7.5 % Normal [facility] Comment on above: Result Comment: Diag nosis of Diabetes-Adults Non-Diabetic: < or = 5.6% Increased risk for developing diabetes: 5.7-6.4% Diagnostic of diabetes: > or = 6.5% . Monitoring of Diabetes Age (y) Therapeutic Goal (%) Adults: >18 <7.0 Pediatrics: 13-18 <7.5 7-12 <8.0 0- 6 7.5-8.5 [employer]. Diabetes Care 33(S1), Jul 2009. Performed By: #### H BA1E #### [facility] [address] [place] [address] HbA1c (Bld) [Mass fraction] 169 MG/DL Normal [facility] Comment on above: Performed By: #### H BA1E #### [facility] [address] [place] [address] Anthony 06-16-2019 AST [Catalytic activity/Vol] 18 U/L Normal 9 - 39 [facility] Comment on above: Order Comment: Desean nt states she had black coffee this a.m. Performed By: #### A ST #### [address] [address] COMPREHENSIVE PANELon 2018 Albumin [Mass/Vol] 4.1 g/dL Normal 3.4 - 5.0 [facility] Comment on above: Performed By: #### C MP #### [address] [address] ALP [Catalytic activity/Vol] 62 U/L Normal 33 - 136 [facility] Comment on above: Performed By: #### C MP #### [address] [address] ALT [Catalytic activity/Vol] 12 U/L Normal 7 - 45 [facility] Comment on above: Result Comment: Yareli ents treated with Sulfasalazine may generate falsely decreased results for ALT. Performed By: #### C MP #### [address] [address] Anion gap [Moles/Vol] 13 mmol/L Normal 10 - 20 [facility] Comment on above: Performed By: #### C MP #### [address] [address] AST [Catalytic activity/Vol] 16 U/L Normal 9 - 39 [facility] Comment on above: Performed By: #### C MP #### [address] [address] Bilirubin [Mass/Vol] 0.5 mg/dL Normal 0.0 - 1.2 [facility] Comment on above: Performed By: #### C MP #### [address] [address] Calcium [Mass/Vol] 9.8 mg/dL Normal 8.6 - 10.3 [facility] Comment on above: Performed By: #### C MP #### [address] [address] Chloride [Moles/Vol] 103 mmol/L Normal 98 - 107 [facility] Comment on above: Performed By: #### C MP #### [address] [address] Creatinine [Mass/Vol] 1.32 mg/dL High 0.50 - 1.05 [facility] Comment on above: Performed By: #### C MP #### [address] [address] GFR- AM. 47 mL/min/1.73m2 Abnormal >60 [facility] Comment on above: Result Comment: CALC ULATIONS OF ESTIMATED GFR ARE PERFORMED USING THE MDRD STUDY EQUATION FOR THE IDMS-TRACEABLE CREATININE METHODS. CLIN CHEM 2007;53:766-72 Performed By: #### C MP #### [address] [address] GFR-NON AM. 39 mL/min/1.73m2 Abnormal >60 [facility] Comment on above: Performed By: #### C MP #### [address] [address] Glucose [Mass/Vol] 115 mg/dL High 74 - 99 [facility] Comment on above: Performed By: #### C MP #### [address] [address] HCO3 (Bld) [Moles/Vol] 25 mmol/L Normal 21 - 32 [facility] Comment on above: Performed By: #### C MP #### [address] [address] Potassium [Moles/Vol] 5.4 mmol/L High 3.5 - 5.3 [facility] Comment on above: Performed By: #### C MP #### [address] [address] Protein [Mass/Vol] 7.5 g/dL Normal 6.4 - 8.2 [facility] Comment on above: Performed By: #### C MP #### [address] [address] Sodium [Moles/Vol] 136 mmol/L Normal 136 - 145 [facility] Comment on above: Performed By: #### C MP #### [address] [address] Urea nitrogen [Mass/Vol] 40 mg/dL High 6 - 23 [facility] Comment on above: Performed By: #### C MP #### [address] [address] LIPID PANEL (CORONARY RISK 2 )on 06-16-2019 Cholesterol [Mass/Vol] 182 mg/dL Normal 0 - 199 [facility] Comment on above: Order Comment: Desean [...] dosing. Performed By: #### L IPID #### [address] [address] Cholesterol in HDL [Mass/Vol] 39.0 mg/dL Abnormal [facility] Comment on above: Order Comment: Desean hernandez states she had black coffee this a.m. Result Comment: . AGE VERY LOW LOW NORMAL HIGH 0-19 Y < 35 < 40 40-45 ---- 20-24 Y ---- < 40 >45 ---- >24 Y ---- < 40 40-60 >60 . Performed By: #### L IPID #### [address] [address] Cholesterol in LDL [Mass/Vol] 92 mg/dL Normal 0 - 99 [facility] Comment on above: Order Comment: Desean hernandez states she had black coffee this a.m. Result Comment: . NEAR BORD AGE DESIRABLE OPTIMAL HIGH HIGH VERY HIGH 0-19 Y 0 - 109 --- 110-129 >/= 130 ---- 20-24 Y 0 - 119 --- 120-159 >/= 160 ---- >24 Y 0 - 99 100-129 130-159 160-189 >/=190 . Performed By: #### L IPID #### [address] [address] Cholesterol in VLDL [Mass/Vol] 51 mg/dL High 0 - 40 [facility] Comment on above: Order Comment: Desean hernandez states she had black coffee this a.m. Performed By: #### L IPID #### [address] [address] Cholesterol.total/C holesterol in HDL [Mass ratio] 4.7 {ratio} Normal [facility] Comment on above: Order Comment: Desean hernandez states she had black coffee this a.m. Result Comment: REF VALUES DESIRABLE < 3.4 HIGH RISK > 5.0 Performed By: #### L IPID #### [address] [address] NON-HDL CHOLESTEROL 143 mg/dL Normal [facility] Comment on above: Order Comment: Desean nt states she had black coffee this a.m. Result Comment: AGE DESIRABLE BORDERLINE HIGH HIGH VERY HIGH 0-19 Y 0 - 119 120 - 144 >/= 145 >/= 160 20-24 Y 0 - 149 150 - 189 >/= 190 ---- >24 Y 30 MG/DL ABOVE LDL CHOLESTEROL GOAL . Performed By: #### L IPID #### [address] [address] Triglyceride [Mass/Vol] 255 mg/dL High 0 - 149 [facility] Comment on above: Order Comment: Desean [...] dosing. Performed By: #### L IPID #### [address] [address] Vital Signs Date Time Vital Sign Value Performing Clinician Facility 04-04-2025 11:30-0400 Body temperature 97.8 [degF] Stefan Best MD Work Phone: [facility] 04-04-2025 11:30-0400 Diastolic blood pressure 77 mm[Hg] Stefan Best MD Work Phone: [facility] 04-04-2025 11:30-0400 Heart rate 80 /min Stefan Best MD Work Phone: [facility] 04-04-2025 11:30-0400 Respiratory rate 16 /min Stefan Best MD Work Phone: [facility] 04-04-2025 11:30-0400 SaO2% (BldA) [Mass fraction] 95 % Stefan Best MD Work Phone: [facility] 04-04-2025 11:30-0400 Systolic blood pressure 143 mm[Hg] Stefan Best MD Work Phone: [facility] 04-03-2025 05:22-0400 Body weight 79.6 kg Stefan Best MD Work Phone: [facility] 03-22-2025 18:10-0400 Body height 149.86 cm Stefan Best MD Work Phone: [facility] 03-22-2025 15:53-0400 Body temperature 98.6 [degF] Stefan Best MD Work Phone: [facility] 03-22-2025 15:53-0400 Diastolic blood pressure 72 mm[Hg] Stefan Best MD Work Phone: [facility] 03-22-2025 15:53-0400 Heart rate 61 /min Stefan Best MD Work Phone: [facility] 03-22-2025 15:53-0400 Respiratory rate 16 /min Stefan Best MD Work Phone: [facility] 03-22-2025 15:53-0400 SaO2% (BldA) [Mass fraction] 94 % Stefan Best MD Work Phone: [facility] 03-22-2025 15:53-0400 Systolic blood pressure 132 mm[Hg] Stefan Best MD Work Phone: [facility] 03-22-2025 05:03-0400 Body weight 71.7 kg Stefan Best MD Work Phone: [facility] 03-21-2025 15:25-0400 Inhaled oxygen flow rate 3 L/min Stefan Best MD Work Phone: [facility] 03-21-2025 11:06-0400 Body height 149.86 cm Stefan Best MD Work Phone: [facility] 03-09-2025 14:50-0400 Diastolic blood pressure 80 mm[Hg] Stefan Best MD Work Phone: [facility] 03-09-2025 14:50-0400 Systolic blood pressure 138 mm[Hg] Stefan Best MD Work Phone: [facility] 02-08-2025 15:38-0400 Body height 149.86 cm Stefan Best MD Work Phone: [facility] 02-08-2025 15:38-0400 Body mass index (BMI) [Ratio] 31.7 kg/m2 Stefan Best MD Work Phone: [facility] 02-08-2025 15:38-0400 Body weight 71.21 kg Stefan Best MD Work Phone: [facility] 02-08-2025 15:38-0400 Diastolic blood pressure 80 mm[Hg] Stefan Best MD Work Phone: [facility] 02-08-2025 15:38-0400 Heart rate 69 /min Stefan Best MD Work Phone: [facility] 02-08-2025 15:38-0400 Respiratory rate 16 /min Stefan Best MD Work Phone: [facility] 02-08-2025 15:38-0400 SaO2% (BldA) [Mass fraction] 96 % Stefan Best MD Work Phone: [facility] 02-08-2025 15:38-0400 Systolic blood pressure 144 mm[Hg] Stefan Best MD Work Phone: [facility] 01-31-2025 15:30-0400 Body height 149.86 cm Stefan Best MD Work Phone: [facility] 01-31-2025 15:30-0400 Body mass index (BMI) [Ratio] 31.7 kg/m2 Stefan Best MD Work Phone: [facility] 01-31-2025 15:30-0400 Body weight 71.21 kg Stefan Best MD Work Phone: [facility] 01-31-2025 15:30-0400 Diastolic blood pressure 75 mm[Hg] Stefan Best MD Work Phone: [facility] 01-31-2025 15:30-0400 Heart rate 76 /min Stefan Best MD Work Phone: [facility] 01-31-2025 15:30-0400 Systolic blood pressure 153 mm[Hg] Stefan Best MD Work Phone: [facility] 01-11-2025 15:20-0400 Body height 149.86 cm Stefan Best MD Work Phone: [facility] 01-11-2025 15:20-0400 Body mass index (BMI) [Ratio] 33.3 kg/m2 Stefan Best MD Work Phone: [facility] 01-11-2025 15:20-0400 Body weight 74.84 kg Stefan Best MD Work Phone: [facility] 01-11-2025 15:20-0400 Diastolic blood pressure 80 mm[Hg] Stefan Best MD Work Phone: [facility] 01-11-2025 15:20-0400 Heart rate 72 /min Stefan Best MD Work Phone: [facility] 01-11-2025 15:20-0400 SaO2% (BldA) [Mass fraction] 99 % Stefan Best MD Work Phone: [facility] 01-11-2025 15:20-0400 Systolic blood pressure 126 mm[Hg] Stefan Best MD Work Phone: [facility] 10-22-2024 10:09-0400 Diastolic blood pressure 81 mm[Hg] Stefan Best MD Work Phone: [facility] 10-22-2024 10:09-0400 Heart rate 62 /min Stefan Best MD Work Phone: [facility] 10-22-2024 10:09-0400 Respiratory rate 16 /min Stefan Best MD Work Phone: [facility] 10-22-2024 10:09-0400 SaO2% (BldA) [Mass fraction] 95 % Stefan Best MD Work Phone: [facility] 10-22-2024 10:09-0400 Systolic blood pressure 154 mm[Hg] Stefan Best MD Work Phone: [facility] 10-22-2024 09:24-0400 Body temperature 97.2 [degF] Stefan Best MD Work Phone: [facility] 10-22-2024 09:24-0400 Inhaled oxygen flow rate 6 L/min Stefan Best MD Work Phone: [facility] 10-22-2024 06:33-0400 Body height 149.86 cm Stefan Best MD Work Phone: [facility] 10-22-2024 06:33-0400 Body weight 74.84 kg Stefan Best MD Work Phone: [facility] 10-04-2024 15:31-0400 Body height 149.86 cm Stefan Best MD Work Phone: [facility] 10-04-2024 15:31-0400 Body mass index (BMI) [Ratio] 33.3 kg/m2 Stefan Best MD Work Phone: [facility] 10-04-2024 15:31-0400 Body weight 74.84 kg Stefan Best MD Work Phone: [facility] 10-04-2024 15:31-0400 Diastolic blood pressure 81 mm[Hg] Stefan Best MD Work Phone: [facility] 10-04-2024 15:31-0400 Heart rate 71 /min Stefan Best MD Work Phone: [facility] 10-04-2024 15:31-0400 Respiratory rate 12 /min Stefan Best MD Work Phone: [facility] 10-04-2024 15:31-0400 SaO2% (BldA) [Mass fraction] 96 % Stefan Best MD Work Phone: [facility] 10-04-2024 15:31-0400 Systolic blood pressure 155 mm[Hg] Stefan Best MD Work Phone: [facility] 08-11-2024 15:39-0500 Diastolic blood pressure 60 mm[Hg] Angela Braun [employer] Work Phone: [facility] 08-11-2024 15:39-0500 Systolic blood pressure 102 mm[Hg] Angela Braun [employer] Work Phone: [facility] 08-11-2024 15:23-0500 Body height 149.9 cm Angela Braun [employer] Work Phone: [facility] 08-11-2024 15:23-0500 Body mass index (BMI) [Ratio] 33.33 kg/m2 Angela Braun [employer] Work Phone: [facility] 08-11-2024 15:23-0500 Body weight 74.84 kg Angela Braun [employer] Work Phone: [facility] 08-11-2024 15:23-0500 Heart rate 54 /min Angela Braun [employer] Work Phone: [facility] 08-03-2024 11:09-0500 Body height 149.86 cm Stefan Best MD Work Phone: [facility] 08-03-2024 11:09-0500 Diastolic blood pressure 71 mm[Hg] Stefan Best MD Work Phone: [facility] 08-03-2024 11:09-0500 Heart rate 66 /min Stefan Best MD Work Phone: [facility] 08-03-2024 11:09-0500 Respiratory rate 16 /min Stefan Best MD Work Phone: [facility] 08-03-2024 11:09-0500 SaO2% (BldA) [Mass fraction] 96 % Stefan Best MD Work Phone: [facility] 08-03-2024 11:09-0500 Systolic blood pressure 153 mm[Hg] Stefan Best MD Work Phone: [facility] 07-01-2024 11:08-0500 Body height 149.86 cm Stefan Best MD Work Phone: [facility] 07-01-2024 11:08-0500 Body mass index (BMI) [Ratio] 33.3 kg/m2 Stefan Best MD Work Phone: [facility] 07-01-2024 11:08-0500 Body weight 74.84 kg Stefan Best MD Work Phone: [facility] 07-01-2024 11:08-0500 Diastolic blood pressure 72 mm[Hg] Stefan Best MD Work Phone: [facility] 07-01-2024 11:08-0500 Heart rate 78 /min Stefan Best MD Work Phone: [facility] 07-01-2024 11:08-0500 SaO2% (BldA) [Mass fraction] 96 % Stefan Best MD Work Phone: [facility] 07-01-2024 11:08-0500 Systolic blood pressure 128 mm[Hg] Stefan Best MD Work Phone: [facility] 06-28-2024 10:38-0500 Body height 149.86 cm Stefan Best MD Work Phone: [facility] 06-28-2024 10:38-0500 Body mass index (BMI) [Ratio] 33.3 kg/m2 Stefan Best MD Work Phone: [facility] 06-28-2024 10:38-0500 Body weight 74.84 kg Stefan Best MD Work Phone: [facility] 06-24-2024 10:14-0500 Body height 149.86 cm Stefan Best MD Work Phone: [facility] 06-24-2024 10:14-0500 Body temperature 98.1 [degF] Stefan Best MD Work Phone: [facility] 06-24-2024 10:14-0500 Body weight 74.84 kg Stefan Best MD Work Phone: [facility] 06-24-2024 10:14-0500 Diastolic blood pressure 59 mm[Hg] Stefan Best MD Work Phone: [facility] 06-24-2024 10:14-0500 Heart rate 66 /min Stefan Best MD Work Phone: [facility] 06-24-2024 10:14-0500 Respiratory rate 14 /min Stefan Best MD Work Phone: [facility] 06-24-2024 10:14-0500 SaO2% (BldA) [Mass fraction] 97 % Stefan Best MD Work Phone: [facility] 06-24-2024 10:14-0500 Systolic blood pressure 143 mm[Hg] Stefan Best MD Work Phone: [facility] 2024 10:02-0500 Diastolic blood pressure 68 mm[Hg] Stefan Best MD Work Phone: [facility] 2024 10:02-0500 Heart rate 67 /min Stefan Best MD Work Phone: [facility] 2024 10:02-0500 Respiratory rate 20 /min Stefan Best MD Work Phone: [facility] 2024 10:02-0500 SaO2% (BldA) [Mass fraction] 97 % Stefan Best MD Work Phone: [facility] 2024 10:02-0500 Systolic blood pressure 166 mm[Hg] Stefan Best MD Work Phone: [facility] 2024 09:12-0500 Body temperature 97.2 [degF] Stefan Best MD Work Phone: [facility] 2024 07:28-0500 Body height 149.86 cm Stefan Best MD Work Phone: [facility] 2024 07:28-0500 Body weight 74.84 kg Stefan Best MD Work Phone: [facility] 05-20-2024 10:00-0500 Body height 149.86 cm Stefan Best MD Work Phone: [facility] 05-20-2024 10:00-0500 Body mass index (BMI) [Ratio] 33.3 kg/m2 Stefan Best MD Work Phone: [facility] 05-20-2024 10:00-0500 Body weight 74.84 kg Stefan Best MD Work Phone: [facility] 05-20-2024 10:00-0500 Diastolic blood pressure 82 mm[Hg] Stefan Best MD Work Phone: [facility] 05-20-2024 10:00-0500 Heart rate 65 /min Stefan Best MD Work Phone: [facility] 05-20-2024 10:00-0500 SaO2% (BldA) [Mass fraction] 96 % Stefan Best MD Work Phone: [facility] 05-20-2024 10:00-0500 Systolic blood pressure 132 mm[Hg] Stefan Best MD Work Phone: [facility] 03-22-2024 14:23-0400 Body height 149.86 cm MD Stefan Best Work Phone: [facility] 03-22-2024 14:23-0400 Body mass index (BMI) [Ratio] 33.3 kg/m2 MD Stefan Best Work Phone: [facility] 03-22-2024 14:23-0400 Body temperature 96.7 [degF] MD Stefan Best Work Phone: [facility] 03-22-2024 14:23-0400 Body weight 74.84 kg MD Stefan Best Work Phone: [facility] 03-22-2024 14:23-0400 Diastolic blood pressure 70 mm[Hg] MD Stefan Best Work Phone: [facility] 03-22-2024 14:23-0400 Heart rate 76 /min MD Stefan Best Work Phone: [facility] 03-22-2024 14:23-0400 Respiratory rate 16 /min MD Stefan Best Work Phone: [facility] 03-22-2024 14:23-0400 SaO2% (BldA) [Mass fraction] 97 % MD Stefan Best Work Phone: [facility] 03-22-2024 14:23-0400 Systolic blood pressure 130 mm[Hg] MD Stefan Best Work Phone: [facility] 03-05-2024 13:28-0400 Body height 149.86 cm MD Stefan Best Work Phone: [facility] 03-05-2024 13:28-0400 Body mass index (BMI) [Ratio] 33.3 kg/m2 MD Stefan Best Work Phone: [facility] 03-05-2024 13:28-0400 Body weight 74.84 kg MD Stefan Best Work Phone: [facility] 03-05-2024 13:28-0400 Diastolic blood pressure 82 mm[Hg] MD Stefan Best Work Phone: [facility] 03-05-2024 13:28-0400 Heart rate 74 /min MD Stefan Best Work Phone: [facility] 03-05-2024 13:28-0400 Systolic blood pressure 147 mm[Hg] MD Stefan Best Work Phone: [facility] 02-29-2024 17:00-0400 Hourly Rounding [facility] 02-29-2024 17:00-0400 Promise to Return [facility] 02-29-2024 16:00-0400 Diastolic blood pressure 60 mm[Hg] [facility] 02-29-2024 16:00-0400 Heart rate 80 /min [facility] 02-29-2024 16:00-0400 Hourly Rounding [facility] 02-29-2024 16:00-0400 Mean blood pressure 78 mm[Hg] [facility] 02-29-2024 16:00-0400 Promise to Return [facility] 02-29-2024 16:00-0400 Respiratory rate 16 /min [facility] 02-29-2024 16:00-0400 SaO2% (BldA) [Mass fraction] 98 % [facility] 02-29-2024 16:00-0400 Systolic blood pressure 114 mm[Hg] [facility] 02-29-2024 15:22-0400 Respiratory rate 18 /min [facility] 02-29-2024 15:22-0400 SaO2% (BldA) [Mass fraction] 92 % [facility] 02-29-2024 15:22-0400 SaO2% (BldA) [Mass fraction] 91 % [facility] 02-29-2024 15:00-0400 Hourly Rounding [facility] 02-29-2024 15:00-0400 Promise to Return [facility] 02-29-2024 11:18-0400 gluc 137 mg/dL [facility] 02-29-2024 10:52-0400 Heart rate 72 /min [facility] 02-29-2024 10:49-0400 Diastolic blood pressure 63 mm[Hg] [facility] 02-29-2024 10:49-0400 Mean blood pressure 80 mm[Hg] [facility] 02-29-2024 10:49-0400 Systolic blood pressure 115 mm[Hg] [facility] 02-29-2024 10:49-0400 Body temperature 98.24 [degF] [facility] 02-29-2024 07:55-0400 gluc 130 mg/dL [facility] 02-29-2024 07:40-0400 Respiratory rate 18 /min [facility] 02-29-2024 07:38-0400 Heart rate 73 /min [facility] 02-29-2024 07:36-0400 Blood Pressure Location [facility] 02-29-2024 07:36-0400 Diastolic blood pressure 54 mm[Hg] [facility] 02-29-2024 07:36-0400 Mean blood pressure 77 mm[Hg] [facility] 02-29-2024 07:36-0400 Systolic blood pressure 123 mm[Hg] [facility] 02-29-2024 07:35-0400 Body temperature 98.06 [degF] [facility] 02-29-2024 03:30-0400 Body temperature 97.34 [degF] [facility] 02-29-2024 03:30-0400 Mean blood pressure 75 mm[Hg] [facility] 02-28-2024 19:00-0400 Body temperature 98.78 [degF] [facility] 02-28-2024 17:47-0400 gluc 118 mg/dL [facility] 02-28-2024 17:16-0400 Mean blood pressure 94 mm[Hg] [facility] [facility] 02-28-2024 14:00-0400 Body temperature 100.04 [degF] Mbanefo OJUKWU [facility] 02-28-2024 14:00-0400 Mean blood pressure 97 mm[Hg] Mbanefo OJUKWU [facility] 02-28-2024 10:00-0400 Heart rate 73 /min Mbanefo OJUKWU [facility] 02-27-2024 03:33-0400 Respiratory rate 17 /min Mbanefo OJUKWU [facility] 02-26-2024 23:49-0400 Respiratory rate 16 /min Mbanefo OJUKWU [facility] 02-26-2024 19:00-0400 Respiratory rate 20 /min Mbanefo OJUKWU [facility] 02-26-2024 17:35-0400 gluc Mbanefo OJUKWU [facility] 02-26-2024 17:30-0400 Heart rate 78 /min Mbanefo OJUKWU [facility] 02-10-2024 15:35-0400 Blood Pressure Location Yaniv NATARAJAN [facility] 02-10-2024 15:35-0400 Diastolic blood pressure 62 mm[Hg] Yaniv NATARAJAN [facility] 02-10-2024 15:35-0400 Heart rate 78 /min Yaniv NATARAJAN [facility] 02-10-2024 15:35-0400 Respiratory rate 16 /min Yaniv NATARAJAN [facility] 02-10-2024 15:35-0400 Systolic blood pressure 144 mm[Hg] Yaniv NATARAJAN [facility] 02-03-2024 15:29-0400 Body height 149.86 cm MD Stefan Best Work Phone: [facility] 02-03-2024 15:29-0400 Body mass index (BMI) [Ratio] 33.3 kg/m2 MD Stefan Best Work Phone: [facility] 02-03-2024 15:29-0400 Body weight 74.84 kg MD Stefan Best Work Phone: [facility] 02-03-2024 15:29-0400 Diastolic blood pressure 75 mm[Hg] MD Stefan Best Work Phone: [facility] 02-03-2024 15:29-0400 Heart rate 72 /min MD Stefan Best Work Phone: [facility] 02-03-2024 15:29-0400 Systolic blood pressure 132 mm[Hg] MD Stefan Best Work Phone: [facility] 01-25-2024 12:00-0400 Body temperature 98.6 [degF] MD Stefan Best Work Phone: [facility] 01-25-2024 12:00-0400 Diastolic blood pressure 70 mm[Hg] MD Stefan Best Work Phone: [facility] 01-25-2024 12:00-0400 Heart rate 80 /min MD Stefan Best Work Phone: [facility] 01-25-2024 12:00-0400 Respiratory rate 18 /min MD Stefan Best Work Phone: [facility] 01-25-2024 12:00-0400 SaO2% (BldA) [Mass fraction] 92 % MD Stefan Best Work Phone: [facility] 01-25-2024 12:00-0400 Systolic blood pressure 135 mm[Hg] MD Stefan Best Work Phone: [facility] 01-25-2024 05:31-0400 Body weight 80 kg MD Stefan Best Work Phone: [facility] 01-24-2024 12:17-0400 Inhaled oxygen flow rate 2 L/min MD Stefan Best Work Phone: [facility] 01-23-2024 16:29-0400 Body height 149.86 cm MD Stefan Best Work Phone: [facility] 01-23-2024 16:29-0400 Body mass index (BMI) [Ratio] 34.5 kg/m2 MD Stefan Best Work Phone: [facility] 01-12-2024 16:11-0400 Body height 149.86 cm MD Stefan Best Work Phone: [facility] 01-12-2024 16:11-0400 Body mass index (BMI) [Ratio] 33.3 kg/m2 MD Stefan Best Work Phone: [facility] 01-12-2024 16:11-0400 Body temperature 96.4 [degF] MD Stefan Best Work Phone: [facility] 01-12-2024 16:11-0400 Body weight 74.84 kg MD Stefan Best Work Phone: [facility] 01-12-2024 16:11-0400 Diastolic blood pressure 80 mm[Hg] MD Stefan Best Work Phone: [facility] 01-12-2024 16:11-0400 Heart rate 82 /min MD Stfean Best Work Phone: [facility] 01-12-2024 16:11-0400 Respiratory rate 16 /min MD Stefan Best Work Phone: [facility] 01-12-2024 16:11-0400 SaO2% (BldA) [Mass fraction] 97 % MD Stefan Best Work Phone: [facility] 01-12-2024 16:11-0400 Systolic blood pressure 149 mm[Hg] MD Stefan Best Work Phone: [facility] 12-11-2023 15:50-0400 Body height 149.86 cm MD Stefan Best Work Phone: [facility] 12-11-2023 15:50-0400 Body mass index (BMI) [Ratio] 33.7 kg/m2 MD Stefan Best Work Phone: [facility] 12-11-2023 15:50-0400 Body weight 75.74 kg MD Stefan Best Work Phone: [facility] 12-11-2023 15:50-0400 Diastolic blood pressure 81 mm[Hg] MD Stefan Best Work Phone: [facility] 12-11-2023 15:50-0400 Heart rate 87 /min MD Stefan Best Work Phone: [facility] 12-11-2023 15:50-0400 Systolic blood pressure 167 mm[Hg] MD Stefan Best Work Phone: [facility] 11-27-2023 13:56-0400 Body height 149.86 cm MD Stefan Best Work Phone: [facility] 11-27-2023 13:56-0400 Body mass index (BMI) [Ratio] 33.9 kg/m2 MD Stefan Best Work Phone: [facility] 11-27-2023 13:56-0400 Body weight 76.2 kg MD Stefan Best Work Phone: [facility] 11-27-2023 13:56-0400 Diastolic blood pressure 81 mm[Hg] MD Stefan Best Work Phone: [facility] 11-27-2023 13:56-0400 Heart rate 76 /min MD Stefan Best Work Phone: [facility] 11-27-2023 13:56-0400 Systolic blood pressure 166 mm[Hg] MD Stefan Best Work Phone: [facility] 10-14-2023 13:33-0400 Diastolic blood pressure 68 mm[Hg] Margie 1 [facility] 10-14-2023 13:33-0400 Heart rate 78 /min [address] 10-14-2023 13:33-0400 Systolic blood pressure 108 mm[Hg] [address] 09-17-2023 13:07-0500 Body height 149.9 cm Tom Morales MD Work Phone: [facility] 09-17-2023 13:07-0500 Body mass index (BMI) [Ratio] 33.33 kg/m2 Tom Morales MD Work Phone: [facility] 09-17-2023 13:07-0500 Body weight 74.84 kg Tom Morales MD Work Phone: [facility] 09-17-2023 13:07-0500 Diastolic blood pressure 70 mm[Hg] Tom Morales MD Work Phone: [facility] 09-17-2023 13:07-0500 Heart rate 84 /min Tom Morales MD Work Phone: [facility] 09-17-2023 13:07-0500 Systolic blood pressure 116 mm[Hg] Tom Morales MD Work Phone: [facility] 09-09-2023 15:18-0500 Body height 149.86 cm [facility] 09-09-2023 15:18-0500 Body mass index (BMI) [Ratio] 33.3 kg/m2 [facility] 09-09-2023 15:18-0500 Body weight 74.84 kg [facility] 09-09-2023 15:18-0500 Diastolic blood pressure 74 mm[Hg] [facility] 09-09-2023 15:18-0500 Heart rate 86 /min [facility] 09-09-2023 15:18-0500 Systolic blood pressure 117 mm[Hg] [facility] 08-13-2023 13:00-0500 Body height Da Lozano II Other [employer] Other 08-13-2023 13:00-0500 Body height 149.86 cm [facility] 11-12-2022 15:30-0400 Body height Ross Colmenares Other [employer] Other 11-12-2022 15:30-0400 Body mass index (BMI) [Ratio] 33.32 kg/m2 Ross Fadiatyler Other [employer] Other 11-12-2022 15:30-0400 Body weight 74.84 kg Ross Colmenares Other [employer] Other 07-25-2022 15:55-0500 Body height 149.86 cm Li Lee Work Phone: NG-Kxjuokbdup-Rysxiq [place] 250 DO Work Phone: 07-25-2022 15:55-0500 Body mass index (BMI) [Ratio] 34.94 kg/m2 Li Lee Work Phone: BN-Vamxqtkjdh-Lmeyxc [place] [address] DO Work Phone: 07-25-2022 15:55-0500 Body surface area Derived from formula 1.73 m2 Li Lee Work Phone: AH-Asmnfvwvhl-Ymzkmj [place] [address] DO Work Phone: 07-25-2022 15:55-0500 Body weight 78.47 kg Li Lee Work Phone: CY-Piamfmbkcn-Kgzxzl [place] [address] DO Work Phone: 07-25-2022 15:55-0500 Diastolic blood pressure 80 mm[Hg] Li Conley Lee Work Phone: HN-Pnuwvovuzm-Ehnjkd [place] [address] DO Work Phone: 07-25-2022 15:55-0500 Heart rate 66 /min Li Conley Lee Work Phone: CK-Dbfgwmnxvh-Twiime [place] [address] DO Work Phone: 07-25-2022 15:55-0500 Systolic blood pressure 120 mm[Hg] Li Conley Lee Work Phone: YG-Bzabwbfxhv-Rrasrm [place] 250 DO Work Phone: 11-02-2021 13:16-0400 Body height 149.86 cm Li Lee Work Phone: [facility] DO Work Phone: 11-02-2021 13:16-0400 Body mass index (BMI) [Ratio] 34.54 kg/m2 Li Lee Work Phone: [facility] 250 DO Work Phone: 11-02-2021 13:16-0400 Body surface area Derived from formula 1.73 m2 Li Yael Lee Work Phone: [facility] DO Work Phone: 11-02-2021 13:16-0400 Body weight 77.57 kg Li Lee Work Phone: [facility] DO Work Phone: 11-02-2021 13:16-0400 Diastolic blood pressure 80 mm[Hg] Li Conley Lee Work Phone: [facility] DO Work Phone: 11-02-2021 13:16-0400 Heart rate 66 /min Li Ruizight Work Phone: [facility] 250 DO Work Phone: 11-02-2021 13:16-0400 Systolic blood pressure 130 mm[Hg] Li Lee Work Phone: [facility] DO Work Phone: Encounters Encounter Date Encounter Type Care Provider Facility Start: 04-11-2025 ambulatory Yaniv NATARAJAN Facility ::[id number] Start: 04-06-2025 End: 04-06-2025 ambulatory Stefan Best MD Work Phone: [facility] Work Phone: Start: 04-06-2025 End: 04-06-2025 Patient encounter procedure Da Artis MD -[facility] Work Phone: Start: 04-04-2025 Non-patient / Non-visit Gardenia Montero CMA [facility] Work Phone: Start: 03-29-2025 Non-patient / Non-visit Cedric Soliman MD -[facility] Work Phone: Start: 03-22-2025 Non-patient / Non-visit Mindy ro APRN -[facility] Work Phone: Start: 03-22-2025 End: 04-04-2025 Evaluation and management of inpatient Farhat Almeida Facility:[facility] Start: 03-21-2025 End: 03-22-2025 ambulatory Da Lozano II Facility:[facility] Start: 03-21-2025 Non-patient / Non-visit Da Artis MD -[facility] Work Phone: Start: 03-11-2025 End: 03-11-2025 ambulatory Stefan Best MD Work Phone: [facility] Work Phone: Start: 03-11-2025 End: 03-11-2025 Patient encounter procedure Da Artis MD -[facility] Work Phone: Start: 03-09-2025 Registered Recurring Da Artis MD -[facility] [place] Start: 03-09-2025 Encounter for other preprocedural examination Da Lozano II [facility] Start: 03-09-2025 End: 03-09-2025 Patient encounter procedure Da Artis MD -[facility] Start: 03-09-2025 End: 03-09-2025 ambulatory Stefan Best MD Work Phone: [facility] Work Phone: Start: 03-09-2025 End: 03-09-2025 ambulatory Stefan Best MD Work Phone: [facility] Work Phone: Start: 03-09-2025 End: 03-09-2025 Patient encounter procedure Da Artis MD -[facility] Work Phone: Start: 03-03-2025 End: 03-03-2025 Patient encounter procedure Da Artis MD -Pre-Surgical Testing Work Phone: Start: 03-03-2025 End: 03-03-2025 ambulatory Stefan Best MD Work Phone: [facility] Work Phone: Start: 02-08-2025 End: 02-08-2025 ambulatory Stefna Best MD Work Phone: [facility] Work Phone: Start: 02-08-2025 End: 02-08-2025 Patient encounter procedure Leroy Ashby MD -[facility] Work Phone: Start: 02-07-2025 Non-patient / Non-visit Leroy Ashby MD -[facility] Work Phone: Start: 01-31-2025 End: 01-31-2025 ambulatory Stefan Best MD Work Phone: [facility] Work Phone: Start: 01-31-2025 End: 01-31-2025 Patient encounter procedure Stefan Best MD -[facility] Work Phone: Start: 01-31-2025 End: 01-31-2025 Preprocedural examination done Stefan Best MD [facility] Start: 01-25-2025 Non-patient / Non-visit Da Artis MD -[facility] Work Phone: Start: 01-11-2025 End: 01-11-2025 ambulatory Stefan Best MD Work Phone: [facility] Work Phone: Start: 01-11-2025 End: 01-11-2025 Patient encounter procedure Stefan Best MD -[facility] Work Phone: Start: 11-15-2024 End: 11-15-2024 Departed Referred Stefan Best MD Work Phone: [facility] [place] Work Phone: Start: 11-15-2024 End: 11-15-2024 ambulatory Stefan Best MD Work Phone: [facility] Work Phone: Start: 11-15-2024 End: 11-15-2024 Patient encounter procedure Stefan Best MD Work Phone: [facility] Work Phone: Start: 10-22-2024 End: 10-22-2024 Admission to same day surgery center Stefan Best MD Work Phone: [facility] [place] Start: 10-22-2024 End: 10-22-2024 ambulatory Stefan Best MD Work Phone: [facility] Work Phone: Start: 10-22-2024 End: 10-22-2024 ambulatory Yaniv NATARAJAN Facility:CD:[id number] Start: 10-04-2024 End: 10-04-2024 ambulatory Stefan Best MD Work Phone: [facility] Work Phone: Start: 10-04-2024 End: 10-04-2024 Patient encounter procedure Stefan Best MD Work Phone: [facility] Work Phone: Start: 09-27-2024 Non-patient / Non-visit Da Lozano MD Work Phone: [facility] Work Phone: Start: 09-27-2024 Non-patient / Non-visit Da Lozano MD Work Phone: [facility] Work Phone: Start: 09-26-2024 End: 09-26-2024 ambulatory Stefan Best Facility:[facility] Start: 09-26-2024 Non-patient / Non-visit Da Lozano MD Work Phone: [facility] Work Phone: Start: 08-11-2024 End: 08-11-2024 ambulatory [facility] Start: 08-11-2024 End: 08-11-2024 Office outpatient visit 25 minutes [facility] [employer]W [employer] Work Phone: [facility] Comment on above: CAD, multiple vessel (Primary Dx); Occlusion and stenosis of right carotid artery; Ischemic cardiomyopathy; Primary hypertension; Mixed hyperlipidemia; Type 2 diabetes mellitus without complication, with long-term current use of insulin (Multi); BMI 33.0-33.9,adult; Chronic kidney disease, stage 3b (Multi); Bruit of right carotid artery; PVD (peripheral vascular disease) ([facility] Start: 08-03-2024 End: 08-03-2024 ambulatory Stefan Best MD Work Phone: [facility] Work Phone: Start: 08-03-2024 End: 08-03-2024 Patient encounter procedure Stefan Best MD Work Phone: [facility] Work Phone: Start: 07-15-2024 End: 07-15-2024 Patient encounter procedure Stefan Best MD Work Phone: [facility] [place] Work Phone: Start: 07-15-2024 End: 07-15-2024 ambulatory Stefan Best MD Work Phone: [facility] Work Phone: Start: 07-12-2024 End: 07-12-2024 ambulatory Stefan Best MD Work Phone: [facility] Work Phone: Start: 07-12-2024 End: 07-12-2024 Departed Referred Stefan Best MD Work Phone: [facility] [place] Start: 07-01-2024 End: 07-01-2024 Patient encounter procedure Stefan Best MD Work Phone: [facility] Work Phone: Start: 06-28-2024 End: 06-28-2024 Patient encounter procedure Stefan Best MD Work Phone: [facility] Work Phone: Start: 06-28-2024 End: 06-28-2024 ambulatory Da Lozano II Facility:[facility] Start: 06-24-2024 End: 06-24-2024 Patient encounter procedure Stefan Best MD Work Phone: [facility] Work Phone: Start: 06-24-2024 End: 06-24-2024 ambulatory Da Lozano II Facility:[facility] Start: 06-24-2024 Encounter for preprocedural laboratory examination Da Lozano II [facility] Start: 2024 End: 2024 Admission to same day surgery center Stefan Best MD Work Phone: [facility] [place] Start: 2024 End: 2024 ambulatory Stefan Best Facility:[facility] Start: 2024 End: 2024 ambulatory Yaniv NATARAJAN Facility::[id number] Start: 05-25-2024 End: 05-25-2024 Patient encounter procedure Stefan Best MD Work Phone: [facility] Work Phone: Start: 05-25-2024 End: 05-25-2024 ambulatory Stefan Best MD Work Phone: [facility] Work Phone: Start: 05-25-2024 End: 05-25-2024 Departed Referred Stefan Best MD Work Phone: [facility] [place] Work Phone: Start: 05-21-2024 End: 05-21-2024 Patient encounter procedure Stefan Best MD Work Phone: [facility]-Pre-Surgical Testing Work Phone: Start: 05-21-2024 End: 05-21-2024 ambulatory Stefan Best MD Work Phone: [facility] Work Phone: Start: 05-20-2024 End: 05-20-2024 Encounter for other preprocedural examination Stefan Best MD Work Phone: [facility] Start: 05-20-2024 End: 05-20-2024 Patient encounter procedure Stefan Best MD Work Phone: [facility] Work Phone: Start: 05-14-2024 Non-patient / Non-visit Stefan Best MD Work Phone: [facility] Work Phone: Start: 05-14-2024 ambulatory Yaniv NATARAJAN Facility ::[id number] Start: 04-07-2024 End: 04-07-2024 Departed Referred MD Stefan Best Work Phone: [facility] [place] Work Phone: Start: 04-07-2024 End: 04-07-2024 ambulatory MD Stefan Best Work Phone: [facility] Work Phone: Start: 04-07-2024 End: 04-07-2024 Patient encounter procedure MD Stefan Best Work Phone: [facility] Work Phone: Start: 03-22-2024 End: 03-22-2024 ambulatory MD Stefan Best Work Phone: [facility] Work Phone: Start: 03-22-2024 End: 03-22-2024 Patient encounter procedure MD Stefan Best Work Phone: [facility] Work Phone: Start: 03-19-2024 Non-patient / Non-visit MD Sulema Best Work Phone: [facility] Work Phone: Start: 03-17-2024 Non-patient / Non-visit MD Sulema Best Work Phone: [facility] Work Phone: Start: 03-05-2024 End: 03-05-2024 ambulatory MD Stefan Best Work Phone: [facility] Work Phone: Start: 03-05-2024 End: 03-05-2024 Patient encounter procedure MD Stefan Best Work Phone: [facility] Work Phone: Start: 02-26-2024 ambulatory Damian RUSS Facility:[facility] Start: 02-26-2024 Emergency department patient visit Baljit Hawkins Facility:[facility] Start: 02-26-2024 End: 02-29-2024 Evaluation and management of inpatient Allison PalafoxJUKWU Facility:[facility] Start: 02-10-2024 End: 02-10-2024 ambulatory Yaniv NATARAJAN Facility:[facility] Start: 02-10-2024 End: 02-10-2024 Patient encounter procedure Yaniv NATARAJAN [facility] Start: 02-03-2024 End: 02-03-2024 ambulatory MD Stefan Best Work Phone: [facility] Work Phone: Start: 02-03-2024 End: 02-03-2024 Patient encounter procedure MD Stefan Best Work Phone: [facility] Work Phone: Start: 01-26-2024 ambulatory [employer] Maxine Llanes Facilit y:[facility] Start: 01-23-2024 Non-patient / Non-visit MD Sulema Best Work Phone: [facility] Work Phone: Start: 01-23-2024 End: 01-23-2024 ambulatory Yaniv NATARAJAN Facility:CD:[id number] Start: 01-22-2024 End: 01-25-2024 Evaluation and management of inpatient MD Stefan Best Work Phone: [facility] Work Phone: Start: 01-12-2024 End: 01-12-2024 ambulatory MD Stefan Best Work Phone: [facility] Work Phone: Start: 01-12-2024 End: 01-12-2024 Patient encounter procedure MD Stefan Best Work Phone: [facility] Work Phone: Start: 12-11-2023 End: 12-11-2023 ambulatory MD Stefan Best Work Phone: [facility] Work Phone: Start: 12-11-2023 End: 12-11-2023 Patient encounter procedure MD Stefan Best Work Phone: [facility] Work Phone: Start: 12-06-2023 Non-patient / Non-visit MD Sulema Best Work Phone: [facility] Work Phone: Start: 12-02-2023 End: 12-02-2023 ambulatory MD Stefan Best Work Phone: [facility] Work Phone: Start: 12-02-2023 End: 12-02-2023 Patient encounter procedure MD Stefan Best Work Phone: [facility] Start: 11-27-2023 Patient encounter status MD Carlo Best Work Phone: [facility] Start: 11-27-2023 Preprocedural examination done Stefan Best MD Work Phone: [facility] Start: 11-27-2023 End: 11-27-2023 Patient encounter procedure MD Stefan Best Work Phone: [facility] Work Phone: Start: 11-22-2023 Non-patient / Non-visit MD Sulema Best Work Phone: [facility] Work Phone: Start: 11-19-2023 End: 11-19-2023 ambulatory [employer] OFFICER Maxine Llanes Facility:[facility] Start: 10-23-2023 End: 10-23-2023 ambulatory [facility] Work Phone: Start: 10-23-2023 End: 10-23-2023 Patient encounter procedure [facility] Work Phone: Start: 10-14-2023 End: 10-14-2023 Subsequent hospital visit by physician Margie Messina Stress Room 1 [facility] Comment on above: CAD, multiple vessel ; S/P CABG x 3; Ischemic cardiomyopathy; Occlusion and stenosis of right carotid artery; Shortness of breath Start: 10-14-2023 End: 10-14-2023 ambulatory TOM MORALES [facility] Start: 09-17-2023 ambulatory [employer] OFFICER Maxine L Shraddha [facility] ity: MARYAM Qureshi Start: 09-17-2023 End: 09-17-2023 Patient encounter procedure [facility] Work Phone: Start: 09-17-2023 End: 09-17-2023 Office outpatient visit 25 minutes Tom Morales MD Work Phone: [facility] Comment on above: CAD, multiple vessel (Primary Dx); S/P CABG x 3; History of angioplasty; Primary hypertension; Ischemic cardiomyopathy; Mixed hyperlipidemia; BMI 32.0-32.9,adult; Former smoker; Occlusion and stenosis of right carotid artery; Shortness of breath Start: 09-09-2023 End: 09-09-2023 Patient encounter procedure [facility] Work Phone: Start: 09-08-2023 End: 09-08-2023 ambulatory [employer] OFFICER Maxine L Shraddha Facility:[facility] Start: 08-20-2023 End: 08-20-2023 ambulatory [employer] OFFICER Maxine L Shraddha Facility:[facility] Start: 08-13-2023 End: 08-13-2023 ambulatory Da Lozano II Other [employer] Other Start: 08-13-2023 Office outpatient vi sit 15 minutes Da Lozano II [facility] Start: 08-13-2023 End: 08-13-2023 Patient encounter procedure [facility]- Start: 05-21-2023 End: 05-21-2023 ambulatory [employer] OFFICER Maxine L Shraddha Facility:[facility] Start: 04-23-2023 (Procedure) Raine Colmenares [facility] Start: 04-23-2023 End: 04-23-2023 ambulatory Ross Colmenares Other [employer] Other Start: 04-07-2023 End: 04-07-2023 ambulatory Ross Darrian Other [employer] Other Start: 04-07-2023 Telephone encounter Ross Guzm[facility] Start: 03-27-2023 End: 03-27-2023 ambulatory Da Harrisle II Other [employer] Other Start: 03-27-2023 Office outpatient vi sit 15 minutes Da Stafford II [facility] Start: 03-25-2023 ambulatory [employer] OFFICER Maxine L Shraddha Facil ity:[facility] Start: 03-05-2023 End: 03-05-2023 ambulatory [employer]ROL OFFICER Maxine L Shraddha Facility: [facility] Start: 02-10-2023 End: 02-10-2023 Lab Drop off Maxine L Shraddha [facility] Start: 12-25-2022 (Procedure) Raine Colmenares [facility] Start: 12-25-2022 End: 12-25-2022 ambulatory Ross Darrian Other [employer] Other Start: 11-12-2022 End: 11-12-2022 ambulatory Ross Fadiatyler Other [employer] Other Start: 11-12-2022 Office outpatient ne w 45 minutes Ross Colmenares [facility] Start: 11-11-2022 End: 11-11-2022 ambulatory MD Li Lee Work Phone: [facility] Work Phone: Start: 11-11-2022 End: 11-11-2022 Patient encounter procedure MD Li Lee Work Phone: [facility] Start: 10-09-2022 Rx Renewal Li Lee Work Phone: [facility] DO Work Phone: Start: 07-25-2022 Office outpatient vi sit 25 minutes Li Lee Work Phone: [facility] DO Work Phone: Start: 07-25-2022 ambulatory Tom Morales II Facility: Start: 07-10-2022 Rx Renewal Li Lee Work Phone: [facility] DO Work Phone: Start: 01-30-2022 End: 01-31-[address] LI ELE Facility:H1 Start: 12-19-2021 Encounter for genera l adult medical examination without abnormal findings DR TOM MORALES [facility] Start: 12-13-2021 End: 12-14-[address] LI LEE Facility:[facility]1 Start: 12-13-2021 End: 12-14-2021 Encounter for general adult medical examination without abnormal findings DR LI LEE Facility:[facility]1 Start: 11-02-2021 Office outpatient vi sit 25 minutes Li Lee Work Phone: [facility] DO Work Phone: Start: 11-02-[address] LI LEE Facilit y:H1 Start: 10-18-2021 End: 01-19-[address] LI LEE Facility:[facility]1 Start: 10-15-2021 End: 10-16-[address] LI LEE Facility:[facility]1 Start: 10-11-2021 Rx Renewal Li Lee Work Phone: [facility] DO Work Phone: Start: 09-10-2021 Rx Renewal Li Lee Work Phone: [facility] DO Work Phone: Start: 08-03-2021 AUDIT Li Lee Work Phone: [facility] DO Work Phone: Start: 11-20-2017 Ambulatory BLAKE KIRNUS Facility :[id number] Start: 09-04-2017 Ambulatory BLAKE KIRNUS Facility :[id number] Start: 04-07-2017 End: 04-08-2017 Ambulatory DEFAULT PHYSICIAN Facility:[facility] Patient encounter status Li white Work Phone: [facility] DO Work Phone: Procedures Date Procedure Procedure Detail Performing Clinician Start: 03-09-2025 Plain X-ray of left hip Stefan Best MD Work Phone: Start: 03-03-2025 Urine culture Stefan acevedo MD Work Phone: Start: 11-15-2024 Urine culture Stefan acevedo MD Work Phone: Start: 10-22-2024 Cystoscopy Stefan garcia MD Work Phone: Start: 10-22-2024 Supine abdominal X-ray Stefan Best MD Work Phone: Start: 10-22-2024 Supine abdominal X-ray Stefan Best MD Work Phone: Start: 07-15-2024 Urine culture Stfean acevedo MD Work Phone: Start: 06-28-2024 Plain X-ray of left hip Stefan Best MD Work Phone: Start: 06-24-2024 Urine culture Stefan acevedo MD Work Phone: Start: 06-24-2024 Antibody screen Stefan Best Comment on above: Order Comment: Date of Surgery: [id number] Result Comment: PERF ORMED BY:[facility] [place], [place] [id number] MEDICAL DIRECTORRADHA DURAN M.D. Start: 2024 Cystoscopy Stefan garcia [...] Phone: Start: 10-14-2023 NUCLEAR STRESS TEST MARCELA MORALES Start: 10-14-2023 Cv strs tst xers&/or rx [...] Phone: History of coronary artery bypass grafting aMxine Llanes History of coronary artery bypass grafting [...] procedure 08/11/2025 11:10 AM EST Office Visit [place] [id number] [place] [id number] Tom Cobb DO [address] [place] [address] [facility] Start: 07-25-2025 End: 07-25-2025 Patient encounter procedure 07/25/2025 9:45 AM EST Appointment [place] [address] [facility] [address] [place] [phone] [facility] Start: 04-04-2025 [facility] Start: 03-22-2025 Hospital admission [facility] Start: 03-22-2025 Referral to clinical art department head [facility] Start: 03-22-2025 [facility] Start: 03-21-2025 Hospital admission [facility] Start: 03-21-2025 Referral to clinical art department head [facility] Start: 03-21-2025 Referral to rehabilitation physician [facility] Start: 03-09-2025 Plain X-ray of left hip XR hip LT min 2V(w/wo pelvis)* [facility] Start: 03-09-2025 XR Hip - left 2 Views F [facility] Start: 03-03-2025 Urine culture [facility] Start: 03-03-2025 [facility] Start: 03-03-2025 Bacteria identified in Urine by Culture Urine Culture [facility] Start: 11-15-2024 Urine culture [facility] Start: 11-15-2024 Bacteria identified in Urine by Culture Urine Culture [facility] Start: 10-22-2024 [facility] Start: 10-22-2024 Supine abdominal X-ray [facility] Start: 09-26-2024 Urine culture [facility] Start: 08-11-2024 End: 08-11-2026 US.doppler Carotid arteries - bilateral Vascular US Carotid Artery Duplex Bilateral Vascular Ultrasound Routine Bruit of right carotid artery Expected: 08/11/2024 (Approximate), Expires: 08/11/2026 [facility] Service Area Work Phone: Comment on above: Expected: 08/11/2024 (Approximate), Expires: 08/11/2026 Start: 07-15-2024 Bacteria identified in Urine by Culture Urine Culture [facility] Start: 07-15-2024 Urine culture [facility] Start: 07-12-2024 Total replacement of left hip joint OR Total Hip Arthro Anterior Approach (Left) [facility] Start: 06-09-2024 End: 06-09-2024 Patient encounter procedure 06/09/2024 11:30 AM EST Office Visit [facility] [address] [facility] [address] [place] [phone] Angela Braun, GUITAR MAKER [employer]IL[employer] FURNITURE SAW TENDER [address] [facility] [address] [place] [address] [facility] Start: 2024 End: 2024 [facility] Start: 05-25-2024 Bacteria identified in Urine by Culture Urine Culture [facility] Start: 05-25-2024 Urine culture [facility] Start: 04-07-2024 Bacteria identified in Urine by Culture [facility] Start: 03-14-2024 COVID-19 Vaccine () COVID-19 Vaccine () [facility] Start: 03-14-2024 Influenza vaccination [facility] Start: 01-27-2024 [facility] Start: 01-26-2024 [facility] Start: 01-25-2024 [facility] Start: 01-25-2024 [facility] Start: 01-22-2024 Hospital admission [facility] Start: 01-22-2024 Referral to paralegal legal secretary [facility] Start: 01-22-2024 Referral to urologist Luis [facility] Start: 01-22-2024 [facility] Start: 01-22-2024 Dilation of Bilatera l Ureters, Via Natural or Artificial Opening Endoscopic Dilation of Bilateral Ureters, Via Natural or Artificial Opening Endoscopic [facility] Start: 01-22-2024 Fluoroscopy of Kidne ys, Ureters and Bladder using Low Osmolar Contrast Fluoroscopy of Kidneys, Ureters and Bladder using Low Osmolar Contrast [facility] Start: 12-12-2023 Patient referral [facility] Work Phone: Start: 12-02-2023 MRSA Culture MRSA Culture [facility] Start: 09-17-2023 End: 09-16-2025 NM Heart Perfusion W stress and W radionuclide IV Nuclear Stress Test Cardiac Nuclear Medicine Routine CAD, multiple vessel S/P CABG x 3 Ischemic cardiomyopathy Occlusion and stenosis of right carotid artery Shortness of breath Expected: 09/17/2023 (Approximate), Expires: 09/16/2025 [facility] Service Area Work Phone: Comment on above: Expected: 09/17/2023 (Approximate), Expires: 09/16/2025 Start: 07-23-2023 FUV, Provider: Tom Morales, Status: Pen, Time: 3:40 PM FUV, Provider: Tom Morales, Status: Pen, Time: 3:40 PM [facility] 250 DO Work Phone: Start: 07-19-2023 Glaucoma screening Diabetes: R etinopathy Screening [facility] Start: 03-14-2023 COVID-19 Vaccine ( season) COVID-19 Vaccine (5 - 2023-24 season) [facility] Start: 03-14-2023 Influenza vaccination Influenza Vacc ine (#1) [facility] Start: 11-11-2022 X-ray of lumbar spin e, four views XR lumbar spine AP/LAT/FLX/EXT [facility] Start: 11-11-2022 Plain X-ray of left hip XR hip LT min 2V(w/wo pelvis)* [facility] Start: 11-11-2022 XR Hip - left 2 Views F [facility] Start: 10-16-2022 Medicare Annual Well ness Visit Medicare Annual Wellness Visit (AWV) [facility] Start: 07-25-2022 FUV, Provider: Tom Morales, Status: Pen, Time: 3:30 PM FUV, Provider: Tom Morales, Status: Pen, Time: 3:30 PM [facility] DO Work Phone: Start: 04-19-2022 FUV, Provider: Tom Morales, Status: Pen, Time: 3:20 PM FUV, Provider: Tom Morales, Status: Pen, Time: 3:20 PM [facility] DO Work Phone: Start: 11-02-2021 FUV, Provider: Tom Morales, Status: Pen, Time: 1:15 PM FUV, Provider: Tom Morales, Status: Pen, Time: 1:15 PM [facility] DO Work Phone: Start: 06-16-2020 Lipid panel Lipid Panel [facility] Start: 2020 RSV High Risk: (Elde rly (60+) or Population) (1 - 1-dose 75+ series) RSV High Risk: (Elderly (60+) or Population) (1 - 1-dose 75+ series) [facility] Start: 09-15-2019 Hemoglobin A1c measurement Diabetes: Hemoglobin A1C [facility] Start: 1995 Zoster Vaccines (1 of 2) Zoster Vacc alli (1 of 2) [facility] Start: 1967 DTaP/Tdap/Td Vaccine s (1 - Tdap) DTaP/Tdap/Td Vaccines (1 - Tdap) [facility] Start: 1964 Urine screening for protein Diabetes: Urine Protein Screening [facility] Start: 1963 Hepatitis C screening Hepatitis C Sc gus [facility] Start: 1955 Diabetic foot examination Diabetes: Foot Exam [facility] Start: 1945 Medicare Annual Well ness Visit Medicare Annual Wellness Visit (AWV) [facility] Start: 1945 Screening for osteoporosis Bone Density Scan [facility] Start: 1945 Urine screening for protein Diabetes: Urine Protein Screening [facility] Bacteria identified in Urine by Culture [facility] Cotinine [Mass/volum e] in Serum or Plasma [facility] Immunofixation for Urine Fir [facility] Nicotine [Mass/volum e] in Serum or Plasma [facility] Patient Education [facility] Work Phone: Patient referral [facility] Work Phone: Renal function 2000 panel - Serum or Plasma [facility] Renal function 1999 panel - Serum or Plasma [facility] Renal function 2000 panel - Serum or Plasma [facility] Renal function 1999 panel - Serum or Plasma [facility] Urine culture [facility] US Kidney - bilateral [facility] Immunizations Immunization Date Immunization Notes Care Provider Fa [facility] 07-03-2022 Fluad Quadrivalent 0 .5 ML Intramuscular Prefilled Syringe Li Lee Work Phone: [facility] 250 DO Work Phone: 07-03-2022 influenza virus vacc ine, unspecified formulation Maxine Llanes [facility] 07-03-2022 influenza, injectabl e, quadrivalent, contains preservative Tom Morales MD Work Phone: [facility] Work Phone: 06-17-2022 Pfizer COVID-19 Vac Bivalent 30 MCG/0.3ML Intramuscular Suspension Li Lee Work Phone: [facility] Comment on above: Result Comment: 2022: [id number] 04-13-2021 Pfizer-BioNTech COVI D-19 Vacc 30 MCG/0.3ML Intramuscular Suspension Li Lee Work Phone: [facility] Comment on above: Result Comment: 2022: [id number] 08-30-2020 Pfizer-BioNTech COVI D-19 Vacc 30 MCG/0.3ML Intramuscular Suspension Li Lee Work Phone: [facility] Comment on above: Result Comment: 2022: [id number] 08-09-2020 Pfizer-BioNTech COVI D-19 Vacc 30 MCG/0.3ML Intramuscular Suspension Li Lee Work Phone: [facility] Comment on above: Result Comment: 2022: [id number] 07-01-2019 influenza virus vacc ine, unspecified formulation Maxine Llanes [facility] 07-01-2019 influenza, injectabl e, quadrivalent, contains preservative Li Lee Work Phone: [facility] DO Work Phone: 07-14-2018 influenza virus vacc ine, unspecified formulation Li Lee Work Phone: [facility] 04-16-2018 influenza virus vacc ine, unspecified formulation Maxine Llanes [facility] 04-16-2018 pneumococcal polysaccharide vaccine, 23 valent Li Lee Work Phone: [facility] 04-13-2018 influenza virus vacc ine, unspecified formulation Li Lee Work Phone: [place] [address] [place] Work Phone: 04-13-2018 pneumococcal conjuga te vaccine, 13 valent Li Lee Work Phone: [place] [address] [place] Work Phone: 05-16-2017 influenza virus vacc ine, unspecified formulation Maxine Llanes [facility] 05-12-2017 influenza, high dose seasonal, preservative-free Li Lee Work Phone: [place] [address] DO Work Phone: 10-30-2016 pneumococcal conjuga te vaccine, 13 valent Li Lee Work Phone: [facility] 10-12-2016 pneumococcal polysaccharide vaccine, 23 valent Li Lee Work Phone: [place] [address] DO Work Phone: 07-14-2011 influenza virus vacc ine, unspecified formulation Li Lee Work Phone: [place] [address] DO Work Phone: Payers Date Payer Category Payer Medicare [id number] 2024 Self-pay [id number] 2023 Medicare [id number] 2022 Medicare supplementa l policy (as second payer) AAR [id number] 2022 Unknown 2010 Medicare [id number]. 1.13.647. [id number] 2010 Medicare [id number] 2.16.840.1.012251.19 1959 Medicare [id number] 1959 Self-pay [id number] 1959 Unknown [id number] 1945 Unknown [id number] 2.16.840.1.955687.3.579. 2.593 1945 Unknown [id number] 2.16.840.1.840921.3.579. 2.593 1945 Unknown [id number] 2.16.840.1.538009.3.579. 2.593 1945 Unknown [id number] 2.16.840.1.972819.3.579. 2.593 1945 Unknown [id number] 2.16.840.1.585042.3.579. 2.593 1945 Unknown [id number] 2.16.840.1.908809.3.579. 2.356 1945 Unknown [id number] 2.16.840.1.049586.3.579. 2.356 1945 Unknown [id number] 2.16.840.1.072548.3.579. 2.727 1945 Unknown [id number] 2.16.840.1.780834.3.579. 2.727 1945 Unknown [id number] 2.16.840.1.120633.3.579. 2.727 1945 Unknown [id number] 2.16.840.1.229752.3.579. 2. 1945 Unknown [id number] 2.16.840.1.925108.3.579. 2 1945 Unknown [id number] 2.16.840.1.859633.3.579. 2 1945 Unknown [id number] 2.16.840.1.017977.3.579. 2 1945 Unknown [id number] 2.16.840.1.793215.3.579. 2 1945 Unknown [id number] 2.16.840.1.463822.3.579. 2 1945 Unknown [id number] 2.16.840.1.730871.3.579. 2 1945 Unknown [id number] 2.16.840.1.307372.3.579. 2 1945 Unknown [id number] 2.16.840.1.893009.3.579. 2 1945 Unknown [id number] 2.16.840.1.797323.3.579. 2 1945 Unknown [id number] 2.16.840.1.952243.3.579. 2 1945 Unknown [id number] 2.16.840.1.515734.3.579. 2 1945 Unknown [id number] 2.16.840.1.223837.3.579. 2 1945 Unknown [id number] 2.16.840.1.316273.3.579. 2 1945 Unknown [id number] 2.16.840.1.824185.3.579. 2 1945 Unknown [id number] 2.16.840.1.922064.3.579. 2.727 1945 Unknown [id number] 2.16.840.1.835972.3.579. 2.727 1945 Unknown [id number] 2.16.840.1.836722.3.579. 2.1246 1945 Unknown [id number] 2.16.840.1.638688.3.579. 2.124 1945 Unknown [id number] 2.16.840.1.420764.3.579. 2.124 1945 Unknown [id number] 2.16.840.1.840923.3.579. 2.124 1945 Unknown [id number] 2.16.840.1.948670.3.579. 2.6 1945 Unknown [id number] 2.16.840.1.473447.3.579. 2.72 1945 Unknown [id number] 2.16.840.1.178260.3.579. 2.727 1945 Unknown [id number] 2.16.840.1.245092.3.579. 2.727 1945 Unknown [id number] 2.16.840.1.954255.3.579. 2.727 1945 Unknown [id number] 2.16.840.1.567623.3.579. 2.1244 Medicare [id number] Unknown [id number] 2.16.840.1.416156.3.579. 2.531 Unknown [id number] 2.16.840.1.799298.3.579. 2.531 Unknown [id number] 2.16.840.1.292710.3.579. 2.531 Unknown [id number] 2.16.840.1.738029.3.579. 2.531 Unknown [id number] 2.16.840.1.082722.3.579. 2.531 Unknown [id number] 2.16.840.1.464126.3.579. 2.531 Unknown [id number] 2.16.840.1.252158.3.579. 2.531 Unknown [id number] 2.16.840.1.896594.3.579. 2.531 Unknown [id number] 2.16.840.1.762361.3.579. 2.531 Unknown [id number] 2.16.840.1.563860.3.579. 2.531 Unknown [id number] 2.16.840.1.048857.3.579. 2.531 Unknown [id number] 2.16.840.1.714441.3.579. 2.531 Unknown [id number] 2.16.840.1.347553.3.579. 2.531 Unknown [id number] 2.16.840.1.758460.3.579. 2.531 Unknown [id number] 2.16.840.1.270288.3.579. 2.531 Unknown [id number] 2.16.840.1.040524.3.579. 2.531 Social History Date Type Detail Facility Start: 07-08-2023 End: 08-11-2024 Former smoker Former smoker [place] [address] DO Work Phone: Comment on above: Quit 17 years ago; Quit 25+ years ago; coffee occasionally soda, tea; Start: 08-06-2018 End: 03-23-2025 Tobacco smoking status IAIS Ex-smoker (finding) [facility] Comment on above: quit age 50 Start: 1945 Sex Assigned At Female [facility] Start: 07-08-2023 End: 08-11-2024 Sex Assigned At [facility] Tobacco smoking status Never [facility] Comment on above: quit age 50 End: 07-14-1999 History of tobacco use Current smoker [facility] Work Phone: End: 07-14-1999 History of tobacco use Cigarette Smoker [facility] Work Phone: Start: 07-08-2023 End: 08-11-2024 Tobacco use and exposure Smokeless tobacco non-user [facility] Work Phone: Start: 09-17-2023 End: 08-11-2024 Alcohol intake Current drinker of alcohol (finding) [facility] Work Phone: Start: 07-08-2023 Alcohol Comment occasional [facility] Work Phone: Start: 1945 Sex Assigned At Not on file [facility] Work Phone: Start: 09-07-2023 End: 08-11-2024 Exposure to SARS-CoV-2 (event) Not sure [facility] Start: 08-13-2023 Tobacco smoking stat us NHIS Never smoked tobacco (finding) [facility] Start: 05-22-2024 End: 11-15-2024 Sex Female (finding) [facility] Start: 04-01-2025 SDOH Follow up SDOH Follow up [facility] Work Phone: Medical Equipment Procedure Code Equipment Code Equipment Origin al Text Equipment Identifier Dates Cystoscopy, with ureteral calculus manipulation and stent placement Polymeric ureteral stent ()[id number] FDA Start: 01-23-2024 Cystoscopy, with ureteral calculus manipulation and stent placement Polymeric ureteral stent ()[id number] FDA Start: 2024 Cystoscopy, with ureteral calculus manipulation and stent placement Polymeric ureteral stent ()[id number] FDA Start: 10-22-2024 Cystoscopy, with ureteral calculus manipulation and stent placement Polymeric ureteral stent ()[id number] FDA Start: 10-22-2024 Arthroplasty, hip, total, anterior approach Acetabular shell ()[id number] FDA Start: 03-21-2025 Arthroplasty, hip, total, anterior approach Orthopaedic bone screw, non-bioabsorbable, sterile ()[id number] FDA Start: 03-21-2025 Arthroplasty, hip, total, anterior approach Orthopaedic bone screw, non-bioabsorbable, sterile ()[id number] FDA Start: 03-21-2025 Arthroplasty, hip, total, anterior approach Orthopaedic bone screw, non-bioabsorbable, sterile ()[id number] FDA Start: 03-21-2025 Arthroplasty, hip, total, anterior approach Ceramic femoral head prosthesis ()[id number] FDA Start: 03-21-2025 Arthroplasty, hip, total, anterior approach Coated hip femur prosthesis, modular ()[id number] FDA Start: 03-21-2025 Arthroplasty, hip, total, anterior approach Non-constrained polyethylene acetabular liner ()[id number] FDA Start: 03-21-2025 AAA repair with graft GRAFT HEMASHIELD [id number] FDA Start: 07-20-2018 AAA repair with graft IR STENT SMART 9 X 40 120 CM FDA Start: 07-20-2018 AAA repair with graft GRAFT HEMASHIELD [id number] FDA Start: 07-20-2018 AAA repair with graft IR STENT SMART 9 X 40 120 CM FDA Start: 07-20-2018 AAA repair with graft GRAFT HEMASHIELD [id number] FDA Start: 07-20-2018 AAA repair with graft IR STENT SMART 9 X 40 120 CM FDA Start: 07-20-2018 AAA repair with graft GRAFT HEMASHIELD [id number] FDA Start: 07-20-2018 AAA repair with graft IR STENT SMART 9 X 40 120 CM FDA Start: 07-20-2018 AAA repair with graft GRAFT HEMASHIELD [id number] FDA Start: 07-20-2018 AAA repair with graft IR STENT SMART 9 X 40 120 CM FDA Start: 07-20-2018 AAA repair with graft GRAFT HEMASHIELD [id number] FDA Start: 07-20-2018 AAA repair with graft IR STENT SMART 9 X 40 120 CM FDA Start: 07-20-2018 AAA repair with graft GRAFT HEMASHIELD [id number] FDA Start: 07-20-2018 AAA repair with graft IR STENT SMART 9 X 40 120 CM FDA Start: 07-20-2018 AAA repair with graft GRAFT HEMASHIELD [id number] FDA Start: 07-20-2018 AAA repair with graft IR STENT SMART 9 X 40 120 CM FDA Start: 07-20-2018 AAA repair with graft GRAFT HEMASHIELD [id number] FDA Start: 07-20-2018 AAA repair with graft IR STENT SMART 9 X 40 120 CM FDA Start: 07-20-2018 AAA repair with graft GRAFT HEMASHIELD [id number] FDA Start: 07-20-2018 AAA repair with graft IR STENT SMART 9 X 40 120 CM FDA Start: 07-20-2018 AAA repair with graft GRAFT HEMASHIELD [id number] FDA Start: 07-20-2018 AAA repair with graft IR STENT SMART 9 X 40 120 CM FDA Start: 07-20-2018 AAA repair with graft GRAFT HEMASHIELD [id number] FDA Start: 07-20-2018 AAA repair with graft IR STENT SMART 9 X 40 120 CM FDA Start: 07-20-2018 AAA repair with graft GRAFT HEMASHIELD [id number] FDA Start: 07-20-2018 AAA repair with graft IR STENT SMART 9 X 40 120 CM FDA Start: 07-20-2018 AAA repair with graft GRAFT HEMASHIELD [id number] FDA Start: 07-20-2018 AAA repair with graft IR STENT SMART 9 X 40 120 CM FDA Start: 07-20-2018 AAA repair with graft GRAFT HEMASHIELD [id number] FDA Start: 07-20-2018 AAA repair with graft IR STENT SMART 9 X 40 120 CM FDA Start: 07-20-2018 AAA repair with graft GRAFT HEMASHIELD [id number] FDA Start: 07-20-2018 AAA repair with graft IR STENT SMART 9 X 40 120 CM FDA Start: 07-20-2018 AAA repair with graft GRAFT HEMASHIELD [id number] FDA Start: 07-20-2018 AAA repair with graft IR STENT SMART 9 X 40 120 CM FDA Start: 07-20-2018 AAA repair with graft GRAFT HEMASHIELD [id number] FDA Start: 07-20-2018 AAA repair with graft IR STENT SMART 9 X 40 120 CM FDA Start: 07-20-2018 AAA repair with graft GRAFT HEMASHIELD [id number] FDA Start: 07-20-2018 AAA repair with graft IR STENT SMART 9 X 40 120 CM FDA Start: 07-20-2018 AAA repair with graft GRAFT HEMASHIELD [id number] FDA Start: 07-20-2018 AAA repair with graft IR STENT SMART 9 X 40 120 CM FDA Start: 07-20-2018 AAA repair with graft GRAFT HEMASHIELD [id number] FDA Start: 07-20-2018 AAA repair with graft IR STENT SMART 9 X 40 120 CM FDA Start: 07-20-2018 AAA repair with graft GRAFT HEMASHIELD [id number] FDA Start: 07-20-2018 AAA repair with graft IR STENT SMART 9 X 40 120 CM FDA Start: 07-20-2018 AAA repair with graft GRAFT HEMASHIELD [id number] FDA Start: 07-20-2018 AAA repair with graft IR STENT SMART 9 X 40 120 CM FDA Start: 07-20-2018 AAA repair with graft GRAFT HEMASHIELD [id number] FDA Start: 07-20-2018 AAA repair with graft IR STENT SMART 9 X 40 120 CM FDA Start: 07-20-2018 AAA repair with graft GRAFT HEMASHIELD [id number] FDA Start: 07-20-2018 AAA repair with graft IR STENT SMART 9 X 40 120 CM FDA Start: 07-20-2018 AAA repair with graft GRAFT HEMASHIELD [id number] FDA Start: 07-20-2018 AAA repair with graft IR STENT SMART 9 X 40 120 CM FDA Start: 07-20-2018 AAA repair with graft GRAFT HEMASHIELD [id number] FDA Start: 07-20-2018 AAA repair with graft IR STENT SMART 9 X 40 120 CM FDA Start: 07-20-2018 AAA repair with graft GRAFT HEMASHIELD [id number] FDA Start: 07-20-2018 AAA repair with graft IR STENT SMART 9 X 40 120 CM FDA Start: 07-20-2018 AAA repair with graft GRAFT HEMASHIELD [id number] FDA Start: 07-20-2018 AAA repair with graft IR STENT SMART 9 X 40 120 CM FDA Start: 07-20-2018 AAA repair with graft GRAFT HEMASHIELD [id number] FDA Start: 07-20-2018 AAA repair with graft IR STENT SMART 9 X 40 120 CM FDA Start: 07-20-2018 AAA repair with graft GRAFT HEMASHIELD [id number] FDA Start: 07-20-2018 AAA repair with graft IR STENT SMART 9 X 40 120 CM FDA Start: 07-20-2018 AAA repair with graft GRAFT HEMASHIELD [id number] FDA Start: 07-20-2018 AAA repair with graft [...] 7 X 24 135CM FDA Start: 09-11-2017 [facility] Pres[place], See Instructions, 100 strip(s), 3, True Metrix Test Strips Check AC&HS, [facility], Supply, 140.6, cm, 02/10/23 11:29:00 EDT, Height/Length Dosing, 79.2, kg, 02/10/23 11:29:00 EDT, Weight Dosing Start: 02-10-2023 [facility] Prescription, See Instructions, 100 strip(s), 3, [...] Assessment Result Facility 02-26-2024 Functional Status No [facility] 02-26-2024 Functional Status [facility] 02-10-2024 Functional Status N/A [facility] 01-25-2024 Functional status Patient at Baseline [facility] Work Phone: Mental Status Date Assessment Result Facility 01-25-2024 Cognitive function Cognitive Sta tus Patient at Baseline [facility] Work Phone: Clinical Notes 11-11-2016 to 01-11-2025 Note Date & Type Note Facility 01-11-2025 Evaluation note Diagnosis Onset Date Resolution Acute on chronic systolic (congestive) heart failure acute January 11, 2025 3:11pm CKD (chronic kidney disease) stage 4, GFR 15-29 ml/min acute January 11, 2025 3:11pm Hypertension acute January 11 3:11pm Morbid (severe) obesity due to excess calories acute January 11 3:11pm Osteoarthritis of left hip acute January 11, 2025 3:11pm Type 2 diabetes mellitus with hyperglycemia acute January 11 3:11pm Acute on chronic systolic (congestive) heart failure acute January 31, 2025 3:29pm CKD (chronic kidney disease) stage 4, GFR 15-29 ml/min acute January 31, 2025 3:29pm Hypertension acute January 31, 2 025 3:29pm Osteoarthritis of left hip acute January 31, 2025 3:29pm Preoperative examination acute January 31, 2025 3:29pm Type 2 diabetes mellitus with hyperglycemia acute January 31 3:29pm Anemia of renal disease acute J azra 2024 3:30pm CKD (chronic kidney disease) stage 4, GFR 15-29 ml/min acute February 08, 2025 3:30pm Gout acute February 08 3:30pm Hyperlipidemia acute February 08, 2025 3:30pm Hypertensive chronic kidney disease with stage 1 through stage 4 chronic ki acute February 08, 2025 3:30pm Proteinuria acute February 08 3:30pm Secondary hyperparathyroidism acute February 08, 2 025 3:30pm Type 2 diabetes mellitus with diabetic chronic kidney disease acute February 08, 2025 3:30pm [facility] Work Phone: 1(319) 494-375207-01-2025 Evaluation note* Diagnosis Onset Date Resolution Status Admit Date Acute on chronic systolic (congestive) heart failure [...] hyperglycemia acute January 11, 2025 3 :11pm Acute on chronic systolic (congestive) heart failure January 31, 2025 3:29pm CKD (chronic kidney disease) stage 4, GFR 15-29 ml/min acute January 31, 2 025 3:29pm Hypertension acute January 31 025 3:29pm Osteoarthritis of left hip acute January 31, 2025 3:29pm Preoperative examination acute January 31, 2025 3:29pm Type 2 diabetes mellitus wit h hyperglycemia acute January 31, 2025 3:29pm Anemia of renal disease acute J azra 2024 3:30pm CKD (chronic kidney disease) stage 4, GFR 15-29 ml/min acute February 08 025 3:30pm Gout acute February 08 3:30pm Hyperlipidemia acute February 08, 2025 3:30pm Hypertensive chronic kidney disease with stage 1 through stage 4 chronic ki acute February 08, 2025 3:30pm Proteinuria acute February 08 3:30pm Secondary hyperparathyroidism acute February 08, 2025 3:30pm Type 2 diabetes mellitus wit h diabetic chronic kidney disease acute February 08, 2025 3:30pm Osteoarthritis of left hip acute March 09, 2025 2:04pm [facility] Work Phone: 1([phone]) 401-812507-01-2025 Evaluation note* Diagnosis Onset Date Resolution Status Admit Date Acute on chronic systolic (congestive) heart failure acute January 11, 2025 3:11pm CKD (chronic kidney disease) stage 4, GFR 15-29 ml/min acute January 112024 3:11pm Hypertension acute January 11 3:11pm Morbid (severe) obesity due to excess calories acute January 11, 2025 3 :11pm Osteoarthritis of left hip acute January 11, 2025 3:11pm Type 2 diabetes mellitus wit h hyperglycemia acute January 11, 2025 3 :11pm Acute on chronic systolic (congestive) heart failure acute January 31, 2025 3:29pm CKD (chronic kidney disease) stage 4, GFR 15-29 ml/min acute January 122024 3:29pm Hypertension acute January 31 025 3:29pm Osteoarthritis of left hip acute January 31, 2025 3:29pm Preoperative examination acute January 31, 2025 3:29pm Type 2 diabetes mellitus wit h hyperglycemia acute January 31, 2025 3:29pm Anemia of renal disease acute J azra 2024 3:30pm CKD (chronic kidney disease) stage 4, GFR 15-29 ml/min acute January 122024 3:30pm Gout acute February 08 3:30pm Hyperlipidemia acute February 08, 2025 3:30pm Hypertensive chronic kidney disease with stage 1 through stage 4 chronic ki acute February 08 3:30pm Proteinuria acute February 08 3:30pm Secondary hyperparathyroidism acute February 08, 2025 3:30pm Type 2 diabetes mellitus wit h diabetic chronic kidney disease acute February 08, 2025 3:30pm Osteoarthritis of left hip acute March 09, 2025 2:04pm CAD (coronary artery disease) acute March 21, 2025 10:00am S/P total left hip arthroplasty acut e March 21, 2025 10:00am [facility] Work Phone: 1([phone]) 691-148007-01-2025 Evaluation note* Diagnosis Onset Date Resolution Status Admit Date Acute on chronic systolic (congestive) heart failure acute January 11, 2025 3:11pm CKD (chronic kidney disease) stage 4, GFR 15-29 ml/min acute January 112024 3:11pm Hypertension acute January 11 3:11pm Morbid (severe) obesity due to excess calories acute January 11, 2025 3 :11pm Osteoarthritis of left hip acute January 11, 2025 3:11pm Type 2 diabetes mellitus wit h hyperglycemia acute January 11, 2025 3 :11pm Acute on chronic systolic (congestive) heart failure acute January 31, 2025 3:29pm CKD (chronic kidney disease) stage 4, GFR 15-29 ml/min acute January 122024 3:29pm Hypertension acute January 31, 2 025 3:29pm Osteoarthritis of left hip acute January 31, 2025 3:29pm Preoperative examination acute January 31, 2025 3:29pm Type 2 diabetes mellitus wit h hyperglycemia acute January 31, 2025 3:29pm Anemia of renal disease acute J azra 2024 3:30pm CKD (chronic kidney disease) stage 4, GFR 15-29 ml/min acute January 122024 3:30pm Gout acute February 08 3:30pm Hyperlipidemia acute February 08, 2025 3:30pm Hypertensive chronic kidney disease with stage 1 through stage 4 chronic ki acute February 08 3:30pm Proteinuria acute February 08 3:30pm Secondary hyperparathyroidism acute February 08, 2025 3:30pm Type 2 diabetes mellitus wit h diabetic chronic kidney disease acute February 08, 2025 3:30pm Osteoarthritis of left hip acute March 09, 2025 2:04pm CAD (coronary artery disease) acute March 21, 2025 10:00am Heart failure, unspecified acute March 21, 2025 10:00am Hyperlipidemia acute March 21, 2025 10:00am Hypertension acute March 10:00am Morbid (severe) obesity due to excess calories acute March 21, 2 025 10:00am Osteoarthritis of left hip acute March 21, 2025 10:00am S/P total left hip arthroplasty acut e March 21, 2025 10:00am Weakness acute March 21, 2025 10:00am Acute on chronic systolic (congestive) heart failure acute [facility] 2024 5:26pm CKD (chronic kidney disease) acute March 22, 2025 5:26pm CKD (chronic kidney disease) stage 4, GFR 15-29 ml/min acute shanita 2024 5:26pm Hyperlipidemia acute March 22, 2025 5:26pm Hypertension acute March 5:26pm Impaired mobility acute [facility] er 2024 5:26pm PAD (peripheral artery disease) acut e March 22, 2025 5:26pm S/P total left hip arthroplasty acut e March 22, 2025 5:26pm Steroid-induced hyperglycemia acute March 22, 2025 5:26pm Type 2 diabetes mellitus wit h hyperglycemia acute March 22, [address]25 5:26[address] [facility] Work Phone: 1([phone]) 760-575607-01-2025 Evaluation note* Diagnosis Onset Date Resolution Status Admit Date Acute on chronic systolic (congestive) heart failure acute January 11, 2025 3:11pm CKD (chronic kidney disease) stage 4, GFR 15-29 ml/min acute January 112024 3:11pm Hypertension acute January 11 3:11pm Morbid (severe) obesity due to excess calories acute January 11, 2025 3 :11pm Osteoarthritis of left hip acute January 11, 2025 3:11pm Type 2 diabetes mellitus wit h hyperglycemia acute January 11, 2025 3 :11pm Acute on chronic systolic (congestive) heart failure acute January 31, 2025 3:29pm CKD (chronic kidney disease) stage 4, GFR 15-29 ml/min acute January 122024 3:29pm Hypertension acute January 31, 2 025 3:29pm Osteoarthritis of left hip acute January 31, 2025 3:29pm Preoperative examination acute January 31, 2025 3:29pm Type 2 diabetes mellitus wit h hyperglycemia acute January 31, 2025 3:29pm Anemia of renal disease acute J azra 2024 3:30pm CKD (chronic kidney disease) stage 4, GFR 15-29 ml/min acute January 122024 3:30pm Gout acute February 08 3:30pm Hyperlipidemia acute February 08, 2025 3:30pm Hypertensive chronic kidney disease with stage 1 through stage 4 chronic ki acute February 08 3:30pm Proteinuria acute February 08 3:30pm Secondary hyperparathyroidism acute February 08, 2025 3:30pm Type 2 diabetes mellitus wit h diabetic chronic kidney disease acute February 08, 2025 3:30pm Osteoarthritis of left hip acute March 09, 2025 2:04pm CAD (coronary artery disease) acute March 21, 2025 10:00am Heart failure, unspecified acute March 21, 2025 10:00am Hyperlipidemia acute March 21, 2025 10:00am Hypertension acute March 10:00am Morbid (severe) obesity due to excess calories acute March 21, 2 025 10:00am Osteoarthritis of left hip acute March 21, 2025 10:00am S/P total left hip arthroplasty acut e March 21, 2025 10:00am Weakness acute March 21, 2025 10:00am Acute on chronic systolic (congestive) heart failure acute [facility] 2024 5:26pm CKD (chronic kidney disease) acute March 22, 2025 5:26pm CKD (chronic kidney disease) stage 4, GFR 15-29 ml/min acute 2024 5:26pm Hyperlipidemia acute March 22, 2025 5:26pm Hypertension acute March 5:26pm Impaired mobility acute er 2024 5:26pm PAD (peripheral artery disease) acut e March 22, 2025 5:26pm S/P total left hip arthroplasty acut e March 22, 2025 5:26pm Steroid-induced hyperglycemia acute March 22, 2025 5:26pm Type 2 diabetes mellitus wit h hyperglycemia acute March 22, 025 5:26pm S/P total left hip arthroplasty acut e April 06, 2025 2:07pm [facility] Work Phone: 1([phone]) 598-430005-05-2025 Evaluation note* Diagnosis Onset Date Resolution Status Admit Date UTI (urinary tract infection ), bacterial acute November 15, 2024 3: 16pm [facility] Work Phone: 1(509) 607-482305-05-2025 Evaluation note* Diagnosis Onset Date Resolution Status [...] hyperglycemia acute January 11, 2025 3 :11pm [facility] Work Phone: 1([phone]) 944-209805-05-2025 Evaluation note* Diagnosis Onset Date Resolution Status [...] hyperglycemia acute January 11, 2025 3 :11pm Acute on chronic systolic (congestive) heart failure acute January 31, 2025 3:29pm CKD (chronic kidney disease) stage 4, GFR 15-29 ml/min acute January 31, 2 025 3:29pm Hypertension acute January 31, 2 025 3:29pm Osteoarthritis of left hip acute January 31, 2025 3:29pm Preoperative examination acute January 31, 2025 3:29pm Type 2 diabetes mellitus wit h hyperglycemia acute January 31, 2025 3:29pm Anemia of renal disease acute J azra 2024 3:30pm CKD (chronic kidney disease) stage 4, GFR 15-29 ml/min acute February 08, 2 025 3:30pm Gout acute February 08 3:30pm Hyperlipidemia acute February 08, 2025 3:30pm Hypertensive chronic kidney disease with stage 1 through stage 4 chronic ki acute February 08, 2025 3:30pm Proteinuria acute February 08 3:30pm Secondary hyperparathyroidism acute February 08, 2025 3:30pm Type 2 diabetes mellitus wit h diabetic chronic kidney disease acute February 08, 2025 3:30pm [facility] Work Phone: 1([phone]) 307-824903-24-2025 Evaluation note* Diagnosis Onset Date Resolution Status Admit Date CKD (chronic kidney disease) stage 4, GFR 15-29 ml/min acute October 04, 2024 3:28pm Hypertension acute October 04, 2024 3:28pm Osteoarthritis of left hip acute October 04, 2024 3:28pm UTI (urinary tract infection ), bacterial acute October 04, 2024 3:28pm Weakness acute October 04 3:28pm UTI (urinary tract infection ), bacterial acute November 15, 2024 3: 16pm [facility] Work Phone: 1(765) 878-671903-24-2025 Evaluation note* Diagnosis Onset Date Resolution Status Admit Date CKD (chronic kidney disease) stage 4, GFR 15-29 ml/min acute October 04, 2024 3:28pm Hypertension acute October 04, 2024 3:28pm Osteoarthritis of left hip acute October 04, 2024 3:28pm UTI (urinary tract infection ), bacterial acute October 04, 2024 3:28pm Weakness acute October 04 3:28pm [facility] Work Phone: 1([phone]) 596-665801-30-2025 Evaluation + Plan note* Assessment & Plan Note - Angela Braun APRN-[employer] - 08/12/2024 9:45 AM ESTAssociated Problem(s): BMI 33.0-33.9,adult Reviewed the merits of healthy lifestyle choices on overall cardiovascular health. [facility] Work Phone: 1(327) 749-341401-30-2025 Evaluation + Plan note* Assessment & Plan Note - SHAWANDA Parham - 08/12/2024 9:45 AM ESTAssociated Problem(s): Type 2 diabetes mellitus On WILLIAMS/statin Recent hemoglobin A1c 8.2 [facility] Work Phone: 1([phone]) 536-712901-30-2025 Evaluation + Plan note* Assessment & Plan Note - SHAWANDA Parham - 08/12/2024 9:45 AM ESTAssociated Problem(s): PVD (peripheral vascular disease) ([facility]) She has extensive history of peripheral arterial disease including July 2018 open AAA repair Left subclavian ANESTHESIA TECH and stenting Right external iliac ANESTHESIA TECH stenting Left common iliac intervention R ICA 50-69% She has not followed up with vascular since Dr. Chanel retired. During January 2024 hospitalization for hydronephrosis she had a CT of the abdomen that was unremarkable in regards to aortic aneurysm. [facility] Work Phone: 1(284) 567-591501-30-2025 Miscellaneous Notes* Assessment & Plan Note - SHAWANDA Parham - 08/12/2024 9:45 AM ESTAssociated Problem(s): BMI 33.0-33.9,adult Reviewed the merits of healthy lifestyle choices on overall cardiovascular health. * Assessment & Plan Note - SHAWANDA Parham - 08/12/2024 9:45 AM EST Associated Problem(s): Type 2 diabetes mellitus On WILLIAMS/statin Recent hemoglobin A1c 8.2 * Assessment & Plan Note - SHAWANDA Parham - 08/12/2024 9:45 AM EST Associated Problem(s): PVD (peripheral vascular disease) ([facility]) She has extensive history of peripheral arterial disease including July 2018 open AAA repair Left subclavian ANESTHESIA TECH and stenting Right external iliac ANESTHESIA TECH stenting Left common iliac intervention R ICA 50-69% She has not followed up with vascular since Dr. Chanel retired. During January 2024 hospitalization for hydronephrosis she had a CT of the abdomen that was unremarkable in regards to aortic aneurysm. * Assessment & Plan Note - SHAWANDA Parham - 08/12/2024 9:43 AM EST Associated Problem(s): Ischemic cardiomyopathy Ischemic cardiomyopathy heart failure borderline ejection fraction 48% October 2023 MPI Currently no SGLT2 due to acute kidney injury during hospitalization 2023 * Assessment & Plan Note - SHAWANDA Parham - 08/12/2024 9:42 AM EST Associated Problem(s): Hyperlipidemia Moderate intensity statin * Assessment & Plan Note - SHAWANDA Parham - 08/12/2024 9:41 AM EST Associated Problem(s): HTN (hypertension) Asymptomatic hypotension noted in the office today. * Assessment & Plan Note - SHAWANDA Parham - 08/12/2024 9:41 AM EST Associated Problem(s): CAD, multiple vessel November 2016 CABG x 15 June 2017 cardiac cath Distal/mid RCA PCI/GURU x 2 HACKETT-LAD was patent Sequential saphenous vein graft from PDA-OM was occluded LVEF 45% October 2023 MPI no ischemia, no infarct. EF 48%. Current daily activity less than 4 METS. [facility] Work Phone: 1([phone]) 443-812901-30-2025 Evaluation + Plan note* Assessment & Plan Note - SHAWANDA Parham - 08/12/2024 9:43 AM ESTAssociated Problem(s): Ischemic cardiomyopathy Ischemic cardiomyopathy heart failure borderline ejection fraction 48% October 2023 MPI Currently no SGLT2 due to acute kidney injury during hospitalization 2023 [facility] Work Phone: 1([phone]) 504-884801-30-2025 Evaluation + Plan note* Assessment & Plan Note - HSAWANDA Parham - 08/12/2024 9:42 AM ESTAssociated Problem(s): Hyperlipidemia Moderate intensity statin [facility] Work Phone: [phone]) 711-369601-30-2025 Evaluation + Plan note* Assessment & Plan Note - SHAWANDA Parham - 08/12/2024 9:41 AM ESTAssociated Problem(s): HTN (hypertension) Asymptomatic hypotension noted in the office today. [facility] Work Phone: 1([phone]) 541-577501-30-2025 Evaluation + Plan note* Assessment & Plan Note - SHAWANDA Parham - 08/12/2024 9:41 AM ESTAssociated Problem(s): CAD, multiple vessel November 2016 CABG x 15 June 2017 cardiac cath Distal/mid RCA PCI/GURU x 2 HACKETT-LAD was patent Sequential saphenous vein graft from PDA-OM was occluded LVEF 45% October 2023 MPI no ischemia, no infarct. EF 48%. Current daily activity less than 4 METS. [facility] Work Phone: [phone]) 667-264501-29-2025 History of Present illness Narrative* SHAWANDA Parham - 08/11/2024 3:00 PM EST Chief Complaint Seem to be doing okay [...] Atorvastatin Myalgia Williams Inhibitors Other Spironolactone Other Gmylwbx-Umw-Ypw Reductase Inhibitors Myalgia Current Outpatient Medications Medication [...] during hospitalization 2023 PVD (peripheral vascular disease) ([facility]) She has extensive history of peripheral arterial disease including July 2018 open AAA repair Left subclavian ANESTHESIA TECH and stenting Right external iliac ANESTHESIA TECH stenting Left common iliac intervention R ICA [...] making process incorporating patients unique circumstances, the followingtreatment plan will be initiated: 1. Prescription drug management of cardiovascular medication for efficacy, adherence to treatment, side effect assessment and polypharmacy. Current treatment clinically warranted and to continue without modifications. 2. B/L Carotid USN (ALEIDA 50-69%) 3. Return for follow-up; in the interim, contact the office if new symptoms arise. Dr. Cobb annual unless abnormal testing Angela Braun MSN, [employer]EM[employer]HK[employer]N [employer], PMHNP-[facility] [place], [place] Please excuse any errors in grammar or translation related to this dictation. Voice recognition software was utilized to prepare this document. documented in this [facility] Work Phone: 1([phone]) [phone] Instructions* Patient Instructions* SHAWANDA Parham - 08/11/2024 3:00 PM EST [...] making process incorporating patients unique circumstances, the followingtreatment plan will be initiated: 1. Prescription drug management of cardiovascular medication for efficacy, adherence to treatment, side effect assessment and polypharmacy. Current treatment clinically warranted and to continue without modifications. 2. B/L Carotid USN (ALEIDA 50-69%) 3. Return for follow-up; in the interim, contact the office if new symptoms arise. Dr. Cobb annual unless abnormal testing documented in this [facility] Work Phone: 1([phone]) 375-137701-21-2025 Evaluation note* Diagnosis Onset Date Resolution Status Admit Date Anemia of renal disease acute J anuary [...] kidney disease acute August 03, 2024 10:50am [facility] Work Phone: 1([phone] 723-236201-21-2025 Evaluation note* Diagnosis Onset Date Resolution Status Admit Date Anemia of renal disease acute J anuary [...] kidney disease acute August 03, 2024 10:50am CKD (chronic kidney disease) stage 4, GFR 15-29 ml/min acute October 04, 2024 3:28pm Hypertension acute October 04, 2024 3:28pm Osteoarthritis of left hip acute October 04, 2024 3:28pm UTI (urinary tract infection ), bacterial acute October 04, 2024 3:28pm Weakness acute October 04 3:28pm [facility] Work Phone: [phone] 130-423212-19-2024 Evaluation note* Diagnosis Onset Date Resolution Status Admit Date Heart failure, unspecified acute July 01, 2024 10:55am Primary osteoarthritis of left hip a cute July 01, 2024 10:55am Type 2 diabetes mellitus wit h hyperglycemia acute July 01, 2 024 10:55am Anemia of renal disease acute J [...] kidney disease acute August 03, 2024 10:50am [facility] Work Phone: 1([phone]) 850-530212-16-2024 Evaluation note* Diagnosis Onset Date Resolution Status Admit Date Primary osteoarthritis of left hip a cute June 28, 2024 10:19am Heart failure, unspecified acute July 01, 2024 10:55am Primary osteoarthritis of left hip a cute July 01, 2024 10:55am Type 2 diabetes mellitus wit h hyperglycemia acute July 01 2 024 10:55am Anemia of renal disease acute J [...] kidney disease acute August 03, 2024 10:50am [facility] Work Phone: 1([phone] 922-695411-07-2024 Evaluation note* Diagnosis Onset Date Resolution Status [...] wit h hyperglycemia acute July 01 10:55am [facility] Work Phone: 1([phone]) 355-850411-07-2024 Evaluation note* Diagnosis Onset Date Resolution Status [...] kidney disease acute August 03, 2024 10:50am [facility] Work Phone: [phone]) 314-449408-23-2024 Evaluation note* Diagnosis Onset Date Resolution Status [...] tract infection) acute April 07, 2024 10:09am [facility] Work Phone: 1([phone]) 456-188708-23-2024 Evaluation note* Diagnosis Onset Date Resolution Status [...] tract infection) acute May 25, 2024 10:32am [facility] Work Phone: 1([phone]) 182-370408-22-2024 NoteMicrobiology PROCEDURE: Blood Culture Charcoal [R1] SOURCE: Blood BODY SITE: Hand L COLLECTED DATE/TIME: 02/26/2024 19:07 EDT RECEIVED DATE/TIME: 02/26/2024 20:12 EDT START DATE/TIME: 02/26/2024 20:12 EDT FREE TEXT SOURCE: KADE MARLOW, Allison CHANCE MD, Allison FINAL REPORTS Final Report [] Verified Date/Time: 03/04/2024 21:00 EDT No growth at 7 days. Performing Locations R1: [facility] performed at: [facility], [address] [place] [address], [facility] HospitalComment on above:Performed By: #### [id number] #### [address] [id number] NoteMicrobiology PROCEDURE: Blood Culture Charcoal [R1] SOURCE: Blood BODY SITE: Hand R COLLECTED DATE/TIME: 02/26/2024 19:07 EDT RECEIVED DATE/TIME: 02/26/2024 20:12 EDT START DATE/TIME: 02/26/2024 20:12 EDT FREE TEXT SOURCE: KADE MARLOW, Allison Pittman MD FINAL REPORTS Final Report [] Verified Date/Time: 03/04/2024 21:00 EDT No growth at 7 days. Performing Locations R1: This test was performed at: [facility], [address] [place] [address], [id number] [place] [address], JcxjqcMercy Health Fairfield HospitalComment on above:Performed By: #### [id number] #### [facility] [address] [place], [place] [id number] Hospital Discharge instructions Patient Education 02/29/2024 14:58:25 [...] Follow these instructions at home: Medicines Take muhj-jix-fgdebpq and prescription medicines only as told by [...] follow-up visits. Where to find more information [employer]: www.aakp.org National Kidney Foundation: www.kidney.org [employer]: www.akfinc.org Medical Education [place]: ?LifeOptions: www.lifeoptions.org ?Kidney School: www.kidneyschool.org Contact a health care provider if: Your symptoms get worse. You have new symptoms such as: ?Headaches. 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 ?Easy bruising. ?Itchiness. ?Hiccups. ?Lack [...] provider. Document Revised: 10/07/2022 Document Reviewed: 05/09/2020 [employer] Patient Education 2022 [employer]. 02/29/2024 14:58:22 Sepsis, Diagnosis, Adult Sepsis, Diagnosis, [...] Follow these instructions at home: Medicines Take akrp-isa-adghupi and prescription medicines only as told by [...] provider. Document Revised: 05/14/2021 Document Reviewed: 05/14/2021 [employer] Patient Education 2022 [employer]. Follow Up Care 02/26/2024 17:29:51 With:STEFAN BEST Address: [address] [place] [address] Business (1) When:03/05/2024 13:45:00 [facility] 08-18-2024 NoteDischarge Summary Admission and Discharge Information Admit Date/Time:02/26/2024 18:07 Admitting Physician - Allison CHANCE MD Admitting Diagnoses: Discharge Order Date Discharge with Home Health - Ordered -- 02/29/24 13:39:00 [facility] Discharge Diagnoses 1. [...] suprapubic pain. She was subsequently [facility] with acute metabolic encephalopathy secondary to [...] physical therapy. Initially physical therapy had recommended half-way facility placement but patient was hesitant and [...] Discharge Disposition Discharge To, Anticipated II - Nursing Home Unit Discharged to - Home with home [...] enteric coated t (more content not included)... [facility] HospitalComment on above:Result Comment: Electronically Signed By: Allison CHANCE MD\\.br\\Date and Time Signed: 02/29/24 16:44 EDT 02-29-2024 NoteProgress Note-Nurse Report called to Vincent Delgado, sorter upholstery parts. Discharge paperwork provided to patient and .[facility]08-[facility] Evaluation + Plan note Extracted from: Title:Discharge Note Author:Allison CHANCE MD ate:02/29/24 Stable Discharge To, Anticipated II - Nursing Home Unit Discharged to - Home with home [...] 1 tab(s), Chewed, Daily Vitamin D [place], [address] International_Unit, Oral, Daily With When Contact Information STEFAN BEST 03/05/2024 01:45 PM EDT [address] [id number] Business (1) Additional Instructions: Acute Kidney Injury, Adult Sepsis, Diagnosis, Adult Extracted from: Title:APSO Note Author:KADE MARLOW, Mbanefo Date: 78-year-old female with diab etes mellitus [...] present on admission. Resolved. Ordered: Neurological Assessment [facility] Hospital Care/Day Moderate 35 Minutes 81460 2. Sepsis (A41.9: Sepsis, unspecified organism) Sepsis secondary to urinary tract infection present on admission. Resolved. Urine cultures isolating gram-negative sabrina organisms. Blood cultures so far not isolating any organisms. Ordered: [facility] Hospital Care/Day Moderate 35 Minutes 51408 3. Urinary tract infection (N39.0: Urinary tract infection, site not specified) Gram-negative sabrina urinary tract infection present on admission. Treated with IV ceftriaxone and will transition to oral antibiotics at discharge. Ordered: [facility] Hospital Care/Day Moderate 35 Minutes 17987 4. Acute kidney injury (N17.9: Acute kidney failure, unspecified) Acute kidney injury on chronic kidney disease secondary to ATN from above sepsis and UTI. Resolved. Creatinine down to 1.5. Baseline creatinine 1.4 1.5 Avoid nephrotoxic drugs. Treated with IV fluids. Ordered: [facility] Hospital Care/Day Moderate 35 Minutes 17168 5. Elevated troponin (R79.89: Other specified abnormal findings of blood chemistry) Elevated troponin secondary to type II non-ST segment elevation myocardial infarction from above disease process. Troponin trended down. Patient has no chest pain. No further workup needed. Ordered: [facility] Hospital Care/Day Moderate 35 Minutes 71642 6. Hypoglycemia (E16.2: Hypoglycemia, unspecified) Secondary to [...] is intolerant to atorvastatin used here at [facility]. 12. Class 3 severe obesity with serious comorbidity in adult (E66.01: Morbid (severe) obesity due to excess calories) Recommend therapeutic lifestyle modification changes. 13. Coronary artery disease (I25.10: Atherosclerotic heart disease of [place] coronary artery without angina pectoris) Status post CABG. Stable. Continue on Plavix, Coreg. 14. On deep vein thrombosis (DVT) prophylaxis (Z79.899: Other jail (current) drug therapy) Heparin. Disposition: Discharging AM [...] made to ensure accuracy. However inadvertent computerized field marketer errors may be present. Allison Chance. Hospitalist. [...] cultures. Ordered: Home Health Orders Neurological Assessment [facility] Hospital Care/Day Moderate 35 Minutes 43164 2. Sepsis (A41.9: Sepsis, unspecified organism) Sepsis secondary to urinary tract infection present on admission. Resolved. Treating with IV fluid, IV ceftriaxone. Blood cultures so far not isolating any organisms. Ordered: [facility]Day Moderate 35 Minutes 67399 3. Urinary tract infection (N39.0: Urinary tract infection, site not specified) Urinary tract infection present on admission. Treating with IV ceftriaxone pending final urine culture result. Ordered: [facility] Hospital Care/Day Moderate 35 Minutes 12415 4. Acute kidney injury (N17.9: Acute kidney failure, unspecified) Acute kidney injury on chronic kidney disease secondary to ATN from above sepsis and UTI. Resolved. Creatinine down to 1.5. Baseline creatinine 1.4 1.5 Avoid nephrotoxic drugs. Treating with IV fluids. Ordered: Basic Metabolic Panel eGFR Extra Lav Tube [facility] Hospital Care/Day Moderate 35 Minutes 41258 5. Elevated troponin (R79.89: Other specified abnormal findings of blood chemistry) Elevated troponin secondary to type II non-ST segment elevation myocardial infarction from above disease process. Troponin trended down. Patient has no chest pain. No further workup needed. Ordered: [facility] Hospital Care/Day Moderate 35 Minutes 76006 6. Hypoglycemia (E16.2: Hypoglycemia, unspecified) Secondary to [...] artery disease (I25.10: Atherosclerotic heart disease of [place] coronary artery without angina pectoris) Status post CABG. Stable. Continue on Plavix, Coreg. 14. On deep vein thrombosis (DVT) prophylaxis (Z79.899: Other jail (current) drug therapy) Heparin. Disposition: Pending final urine culture result. I discussed the diagnosis and plan of care with the patient at the bedside. Moderate level of MDM based on addressing above issues. This documentation was transcribed using voice recognition software. Several attempts were made to ensure accuracy. However inadvertent computerized field marketer errors may be present. Allison Chance. Hospitalist. [...] to Resource Center Extracted from: Title:APSO Note Author:KADE MARLOW, Allison Date: 78-year-old female with diab etes mellitus [...] underlying disease process. Neurochecks. Follow cultures. Ordered: [facility] Hospital Care/Day Moderate 35 Minutes 83708 2. Sepsis (A41.9: Sepsis, unspecified organism) Sepsis secondary to urinary tract infection present on admission. Treating with IV fluid, IV ceftriaxone. Follow cultures. Ordered: [facility] Hospital Care/Day Moderate 35 Minutes 38732 3. Urinary tract infection (N39.0: Urinary tract infection, site not specified) Urinary tract infection present on admission. Treating with IV ceftriaxone pending final urine culture result. Ordered: [facility] Hospital Care/Day Moderate 35 Minutes 72838 4. Acute kidney injury (N17.9: Acute kidney failure, unspecified) Acute kidney injury on chronic kidney disease secondary to ATN from above sepsis and UTI. Avoid nephrotoxic drugs. Treating with IV fluids. Repeat BMP in AM. Ordered: Basic Metabolic Panel [facility] Hospital Care/Day Moderate 35 Minutes 53756 5. Elevated troponin (R79.89: Other specified abnormal findings of blood chemistry) Elevated troponin secondary to type II non-ST segment elevation myocardial infarction from above disease process. Troponin trended down. Patient has no chest pain. No further workup needed. Ordered: [facility] Hospital Care/Day Moderate 35 Minutes 01951 6. Generalized weakness (R53.1: Weakness) Secondary to [...] artery disease (I25.10: Atherosclerotic heart disease of [place] coronary artery without angina pectoris) Status post CABG. Stable. Continue on Plavix, Coreg. Will verify aspirin. 13. On deep vein thrombosis (DVT) prophylaxis (Z79.899: Other jail (current) drug therapy) Heparin. Orders: acetaminophen, 650 [...] made to ensure accuracy. However inadvertent computerized field marketer errors may be present. Allison Chance. Hospitalist. [...] artery disease (I25.10: Atherosclerotic heart disease of [place] coronary artery without angina pectoris) Status post CABG: Stable. On aspirin, Plavix, will resume Coreg with hold parameters. 9. On deep vein thrombosis (DVT) prophylaxis (Z79.899: Other jail (current) drug therapy) Heparin. Disposition: The patient [...] made to ensure accuracy. However inadvertent computerized field marketer errors may be present. Allison Chance. Hospitalist. [...] Vital Signs Vital Signs Vital Signs Weight [facility] 08-18-2024 NoteProgress Note-Physician Assessment/Plan 78-year-old female [...] injury?present on admission. Resolved. Ordered: Neurological Assessment [facility] Hospital Care/Day Moderate 35 Minutes 11779 2. Sepsis (A41.9: Sepsis, unspecified organism) Sepsis?secondary to urinary tract infection?present on admission. Resolved. Urine cultures isolating gram-negative sabrina organisms. Blood cultures so far not isolating any organisms. Ordered: [facility] Hospital Care/Day Moderate 35 Minutes 87394 3. Urinary tract infection (N39.0: Urinary tract infection, site not specified) Gram-negative sabrina urinary tract infection?present on admission. Treated with IV ceftriaxone and will transition to oral antibiotics at discharge. Ordered: [facility] Hospital Care/Day Moderate 35 Minutes 87691 4. Acute kidney injury (N17.9: Acute kidney failure, unspecified) Acute kidney injury on chronic kidney disease?secondary to ATN from above sepsis and UTI. Resolved. Creatinine down to 1.5. Baseline creatinine 1.4?1.5 Avoid nephrotoxic drugs. Treated with IV fluids. Ordered: [facility] Hospital Care/Day Moderate 35 Minutes 78508 5. Elevated troponin (R79.89: Other specified abnormal findings of blood chemistry) Elevated troponin?secondary to type II non-ST segment elevation myocardial infarction from above disease process. Troponin trended down. Patient has no chest pain. No further workup needed. Ordered: [facility] Hospital Care/Day Moderate 35 Minutes 24054 6. Hypoglycemia (E16.2: Hypoglycemia, unspecified) Secondary to [...] is intolerant to atorvastatin used here at [facility]. 12. Class 3 severe obesity with serious comorbidity in adult (E66.01: Morbid (severe) obesity due to excess calories) Recommend therapeutic lifestyle modification changes. 13. Coronary artery disease (I25.10: Atherosclerotic heart disease of [place] coronary artery without angina pectoris) Status post CABG. Stable. Continue on Plavix, Coreg. 14. On deep vein thrombosis (DVT) prophylaxis (Z79.899: Other terminal supervisor (current) drug therapy) Heparin. Disposition: Discharging AM [...] made to ensure accuracy. However inadvertent computerized field marketer errors may be present. Allison Chance. Hospitalist. [...] (4) Oral Intake mL (more content not included)...[facility] HospitalComment on above:Result Comment: Electronically Signed By: KADE MARLOW, Allison\\.br\\Date and Time Signed: 02/29/24 08:54 [id number] NoteProgress Note-Physician Assessment/Plan 78-year-old female with diabetes [...] cultures. Ordered: Home Health Orders Neurological Assessment [facility] Hospital Care/Day Moderate 35 Minutes 42328 2. Sepsis (A41.9: Sepsis, unspecified organism) Sepsis?secondary to urinary tract infection?present on admission. Resolved. Treating with IV fluid, IV ceftriaxone. Blood cultures so far not isolating any organisms. Ordered: Home Health Orders [facility] Hospital Care/Day Moderate 35 Minutes 86389 3. Urinary tract infection (N39.0: Urinary tract infection, site not specified) Urinary tract infection?present on admission. Treating with IV ceftriaxone pending final urine culture result. Ordered: [facility] Hospital Care/Day Moderate 35 Minutes 25321 4. Acute kidney injury (N17.9: Acute kidney failure, unspecified) Acute kidney injury on chronic kidney disease?secondary to ATN from above sepsis and UTI. Resolved. Creatinine down to 1.5. Baseline creatinine 1.4?1.5 Avoid nephrotoxic drugs. Treating with IV fluids. Ordered: Basic Metabolic Panel eGFR Extra Lav Tube [facility] Hospital Care/Day Moderate 35 Minutes 95624 5. Elevated troponin (R79.89: Other specified abnormal findings of blood chemistry) Elevated troponin?secondary to type II non-ST segment elevation myocardial infarction from above disease process. Troponin trended down. Patient has no chest pain. No further workup needed. Ordered: [facility] Moderate 35 Minutes 31739 6. Hypoglycemia (E16.2: Hypoglycemia, unspecified) Secondary to [...] artery disease (I25.10: Atherosclerotic heart disease of [place] coronary artery without angina pectoris) Status post CABG. Stable. Continue on Plavix, Coreg. 14. On deep vein thrombosis (DVT) prophylaxis (Z79.899: Other terminal supervisor (current) drug therapy) Heparin. Disposition: Pending final urine culture result. I discussed the diagnosis and plan of care with the patient at the bedside. Moderate level of MDM based on addressing above issues. This documentation was transcribed using voice recognition software. Several attempts were made to ensure accuracy. However inadvertent computerized field marketer errors may be present. Allison Chance. Hospitalist. [...] feeling much better. Feeli (more content not included)...[facility] Comment on above:Result Comment: Electronically Signed By: KADE MARLOW, OlesyaNewmarket Internationalfo\\.br\\Date and Time Signed: 02/28/24 08:54 [id number] NoteProgress Note-Physician Assessment/Plan 78-year-old female with diabetes [...] underlying disease process. Neurochecks. Follow cultures. Ordered: [facility] Hospital Care/Day Moderate 35 Minutes 37192 2. Sepsis (A41.9: Sepsis, unspecified organism) Sepsis?secondary to urinary tract infection?present on admission. Treating with IV fluid, IV ceftriaxone. Follow cultures. Ordered: [facility] Hospital Care/Day Moderate 35 Minutes 43257 3. Urinary tract infection (N39.0: Urinary tract infection, site not specified) Urinary tract infection?present on admission. Treating with IV ceftriaxone pending final urine culture result. Ordered: [facility] Hospital Care/Day Moderate 35 Minutes 77394 4. Acute kidney injury (N17.9: Acute kidney failure, unspecified) Acute kidney injury on chronic kidney disease?secondary to ATN from above sepsis and UTI. Avoid nephrotoxic drugs. Treating with IV fluids. Repeat BMP in AM. Ordered: Basic Metabolic Panel [facility] Hospital Care/Day Moderate 35 Minutes 80775 5. Elevated troponin (R79.89: Other specified abnormal findings of blood chemistry) Elevated troponin?secondary to type II non-ST segment elevation myocardial infarction from above disease process. Troponin trended down. Patient has no chest pain. No further workup needed. Ordered: [facility] Hospital Care/Day Moderate 35 Minutes 35631 6. Generalized weakness (R53.1: Weakness) Secondary to [...] artery disease (I25.10: Atherosclerotic heart disease of [place] coronary artery without angina pectoris) Status post CABG. Stable. Continue on Plavix, Coreg. Will verify aspirin. 13. On deep vein thrombosis (DVT) prophylaxis (Z79.899: Other terminal supervisor (current) drug therapy) Heparin. Orders: acetaminophen, 650 [...] 18:52:00 EDT, 02/26/24 18: (more content not included)...[facility] HospitalComment on above:Result Comment: Electronically Signed By: KADE MARLOW, Allison\\.br\\Date and Time Signed: 02/27/24 11:54 [id number] NoteProgress Note-Physician Assessment/Plan 78-year-old female with diabetes [...] underlying disease process. Neurochecks. Follow cultures. Ordered: [facility] Hospital Care/Day Moderate 35 Minutes 71237 2. Sepsis (A41.9: Sepsis, unspecified organism) Sepsis?secondary to urinary tract infection?present on admission. Treating with IV fluid, IV ceftriaxone. Follow cultures. Ordered: [facility] Hospital Care/Day Moderate 35 Minutes 37381 3. Urinary tract infection (N39.0: Urinary tract infection, site not specified) Urinary tract infection?present on admission. Treating with IV ceftriaxone pending final urine culture result. Ordered: [facility] Hospital Care/Day Moderate 35 Minutes 02420 4. Acute kidney injury (N17.9: Acute kidney failure, unspecified) Acute kidney injury on chronic kidney disease?secondary to ATN from above sepsis and UTI. Avoid nephrotoxic drugs. Treating with IV fluids. Repeat BMP in AM. Ordered: Basic Metabolic Panel [facility] Hospital Care/Day Moderate 35 Minutes 27974 5. Elevated troponin (R79.89: Other specified abnormal findings of blood chemistry) Elevated troponin?secondary to type II non-ST segment elevation myocardial infarction from above disease process. Troponin trended down. Patient has no chest pain. No further workup needed. Ordered: [facility] Hospital Care/Day Moderate 35 Minutes 36012 6. Generalized weakness (R53.1: Weakness) Secondary to [...] artery disease (I25.10: Atherosclerotic heart disease of [place] coronary artery without angina pectoris) Status post CABG. Stable. Continue on Plavix, Coreg. Will verify aspirin. 13. On deep vein thrombosis (DVT) prophylaxis (Z79.899: Other terminal supervisor (current) drug therapy) Heparin. Orders: acetaminophen, 650 [...] 18:52:00 EDT, 02/26/24 18: (more content not included)...[facility] HospitalComment on above:Result Comment: Electronically Signed By: KADE MARLOW, Allison\\.br\\Date and Time Signed: 02/27/24 09:45 [id number] NoteHistory and Physical Chief Complaint To ED [...] reviewed in the emergency room by the wireless technician who said the patient was not having [...] Lymph Auto: 8.4 % Low (02/26/24 17:30:00) [place] Auto: 7.9 % (02/26/24 17:30:00) Eos Auto: 0.5 % (02/26/24 17:30:00) Basophil Auto: 1 % (02/26/24 17:30:00) Neutro Absolute: 10.5 E9/L High (02/26/24 17:30:00) Lymph Absolute: 1.1 E9/L (02/26/24 17:30:00) [place] Absolute: 1 E9/L (02/26/24 17:30:00) Eos Absolute: 0.1 E9/L (02/26/24 17:30:00) Basophil Absolute: 0.1 E9/L (02/26/24 17:30:00) PT: 12 second(s) (02/26/24 17:30:00) INR: 1.07 (02/26/24:30:00) PTT: 30.9 second(s) (02/26/24:30:00) Glucose Lvl: 97 mg/dL (02/26/24 17:30:00) BUN: 39 mg/dL High (02/26/24 17:30:00) Creatinine: 1.8 mg/dL High (02/26/24:30:00) eGFR: 28 mL/min/1.73 m2 Low (02/26/24:30:00) BUN/Creat Ratio: 22 High (02/26/24:30:00) Sodium Lvl: 133 mmol/L Low (02/26/24:30:00) Potassium Lvl: 4.4 mmol/L (02/26/24:30:00) Chloride: 100 mmol/L Low (02/26/24:30:00) CO2: 26 mmol/L (02/26/24:30:00) AGAP: 11 mEq/L (02/26/24:30:00) Calcium Lvl: 8.7 mg/dL Low (02/26/24:30:00) Troponin HS: 74.9 pg/mL Critical (02/26/24:30:00) Diagnostic Results EKG analyzed by me: Sinus rhythm. Nonspecific ST-T segment changes involving the lead III, aVL and ST segment depression in V2?no acute changes compared to old EKG. Chest x-ray reviewed by me: N (more content not included)...[facility] HospitalComment on above:Result Comment: Electronically Signed By: KADE MARLOW, Allison\\.br\\Date and Time Signed: 02/26/24 19:01 [id number] Hospital Discharge instructions Patient Education 02/10/2024 16:20:39 [...] transplant. Follow these instructions at home: Take ilic-wmx-otdqrer and prescription medicines only as told by [...] provider. Document Revised: 10/17/2020 Document Reviewed: 10/17/2020 [employer] Patient Education 2022 [employer]. Follow Up Care 01/26/2024 09:56:54 With:REESE MARLOW, Yaniv Vela, URL Address: [facility] [place] [address]- When: Unknown [facility] Marquita 07-30-2024 NotePatient Education Urology Hydronephrosis Hydronephrosis is the [...] Follow these instructions at home: ? Take neld-ald-ibpqlsu and prescription medicines only as told by [...] provider. Document Revised: 10/17/2020 Document Reviewed: 10/17/2020 [employer] Patient Education ? 2022 [employer] MediaPaulMer[facility] 01-25-2024 Progress note Author Gita [facility] January 25, 2024 11:30am Note Date/Time January 25, 2024 11:3 1am [facility] [address] [place] [address] Nephrology Progress Note Signed Patient: Lexi Tatum MR#: [id number] : 1945 Acct:[id number] Age/Sex: 78 / F Adm Date: 4 Loc: Room: [address] [place] [address] Type: ADM IN Attending Dr: Norberto Pires [...] 300 Mg Tablet) 300 mg PO DAILY [facility] Stop: 01/22/25 08:59 Last Admin: 01/25/24 08:29 Dose: 300 mg Atorvastatin Calcium (Atorvastatin 10 Mg Tablet) 10 mg PO QHS [facility] Stop: 01/21/25 21:59 Last Admin: 01/24/24 21:12 Dose: 10 mg Carvedilol (Carvedilol 25 Mg Tablet) 25 mg PO BID.WITH.MEALS [facility] Stop: 01/21/25 19:04 Last Admin: 01/25/24 08:29 Dose: 25 mg Dextrose (Dextrose 50% In Water 25 Gm/50 Ml Syringe) 0 gm IV-PUSH PRN PRN PRN Reason: Hypoglycemia Stop: 01/21/25 18:58 Docusate Sodium (Docusate 100 Mg Capsule) 100 mg PO BID [facility] Stop: 01/21/25 20:59 Last Admin: 01/25/24 08:30 Dose: 100 mg Furosemide (Furosemide 40 Mg Tablet) 40 mg PO DAILY.8A [facility] Stop: 01/25/25 07:59 Gabapentin (Gabapentin 300 Mg Capsule) 300 mg PO BID [facility] Stop: 01/21/25 20:59 Last Admin: 01/25/24 08:29 Dose: 300 mg Glucose (Dextrose 40% Gel 15 Gm Tube) 0 gm PO PRN PRN PRN Reason: Hypoglycemia Stop: 01/21/25 18:58 Heparin Sodium (Porcine) (Heparin 5,000 Unit/Ml Vial) 5,000 unit SUBCUT Q12HR [facility] Stop: 01/22/25 20:59 Last Admin: 01/24/24 09:07 Dose: 5,000 unit Hydralazine HCl (Hydralazine 20 Mg/Ml Vial) 10 mg IV-PUSH Q4H PRN PRN Reason: Hypertension Stop: 01/21/25 18:58 Insulin Aspart (Insulin Aspart 300 Units/3 Ml Insuln.Pen) 0 units SUBCUT TID.WM.HS [facility]; Protocol Stop: 01/21/25 21:59 Last Admin: 01/25/24 08:30 Dose: Not Given Insulin Glargine (Insulin Glargine 300 Units/3 Ml Insuln.Pen) 50 units SUBCUT QPM REBA Stop: 01/23/25 20:59 Last Admin: 01/24/24 21:12 [...] <Electronically signed by MD Gita Azevedo> 01/25/[address] [facility] Work Phone: 1(767) 486-658207-13-2024 Progress note Author Norberto Pires [facility] January 24, 2024 2:31pm Note Date/Time January 24, 2024 2:25 pm [facility] [address] [place] [address] Hospitalist Progress Note Signed Patient: Lexi Tatum MR#: [id number] : 1945 Acct:[id number] Age/Sex: 78 / F Adm Date: 4 Loc: 3T Room: [address] [place] [address] Type: ADM IN Attending Dr: Norberto Pires DO Copies to: ~ Date of Service: 01/24/2024 Subjective Subjective Narrative: Overnight the patient did develop hematuria. This never had any clots. She hasnot had any difficulty voiding urine. Her beet colored urine was collected in the [employer] collection system. Just before my visit with [...] signed by Norberto Pires DO> 01/24/[address] [facility] Work Phone: 1(147) 212-951507-13-2024 Progress note Author Gita Azevedo [facility] January 24, 2024 12:21pm Note Date/Time January 24, 2024 12:2 2pm [facility] [address] [place] [address] Nephrology Progress Note Signed Patient: Lexi Tatum MR#: [id number] : 1945 Acct:[id number] Age/Sex: 78 / F Adm Date: 4 Loc: Room: [address] [place] [address] Type: ADM IN Attending Dr: Norberto Pires [...] 10 Mg Tablet) 10 mg PO QHS [facility] Stop: 01/21/25 21:59 Last Admin: 01/23/24 22:43 Dose: Not Given Carvedilol (Carvedilol 25 Mg Tablet) 25 mg PO BID.WITH.MEALS [facility] Stop: 01/21/25 19:04 Last Admin: 01/24/24 09:08 Dose: 25 mg Dextrose (Dextrose 50% In Water 25 Gm/50 Ml Syringe) 0 gm IV-PUSH PRN PRN PRN Reason: Hypoglycemia Stop: 01/21/25 18:58 Docusate Sodium (Docusate 100 Mg Capsule) 100 mg PO BID [facility] Stop: 01/21/25 20:59 Last Admin: 01/24/24 09:08 Dose: 100 mg Gabapentin (Gabapentin 300 Mg Capsule) 300 mg PO BID [facility] Stop: 01/21/25 20:59 Last Admin: 01/24/24 09:08 Dose: 300 mg Glucose (Dextrose 40% Gel 15 Gm Tube) 0 gm PO PRN PRN PRN Reason: Hypoglycemia Stop: 01/21/25 18:58 Heparin Sodium (Porcine) (Heparin 5,000 Unit/Ml Vial) 5,000 unit SUBCUT Q12HR [facility] Stop: 01/22/25 20:59 Last Admin: 01/24/24 09:07 Dose: 5,000 unit Hydralazine HCl (Hydralazine 20 Mg/Ml Vial) 10 mg IV-PUSH Q4H PRN PRN Reason: Hypertension Stop: 01/21/25 18:58 Sodium Chloride (0.9% Sodium Chloride 1,000 Ml) 1,000 mls @ 75 mls/hr IV .[id number] [facility] Stop: 01/21/25 18:59 Last Admin: 01/23/24 20:12 Dose: 100 mls/hr Insulin Aspart (Insulin Aspart 300 Units/3 Ml Insuln.Pen) 0 units SUBCUT TID.WM.HS [facility]; Protocol Stop: 01/21/25 21:59 Last Admin: 01/24/24 09:09 Dose: 3 units Insulin Glargine (Insulin Glargine 300 Units/3 Ml Insuln.Pen) 25 units SUBCUT QPM [facility] Stop: 01/21/25 20:59 Last Admin: 01/23/24 22:52 [...] Rhett Ponce M.D.01/23/2024 7:31 PM Dictation Location: [place] [address] Any impression(s) listed above is documentation that [...] signed by MD Gita Azevedo> 01/24/[address] [facility] Work Phone: 1(780) 406-645207-12-2024 Progress note Author Norberto Pires [facility] January 23, 2024 6:51pm Note Date/Time January 23, 2024 6:40 pm [facility] [address] [place] [address] Hospitalist Progress Note Signed Patient: Lexi Tatum MR#: [id number] : 1945 Acct:[id number] Age/Sex: 78 / F Adm Date: 4 Loc: Room: [address] [place] [address] Type: ADM IN Attending Dr: Norberto Pires [...] 1,000 Ml IV 01/21/25 18:59 100 mls/hr .[id number] REBA Administration Lactated Ringer's 1,000 mls @ 20 mls/hr 01/23/24 14:04 01/23/24 18:21 Lactated Ringers IV 01/24/24 14:03 Not Given .Q24H ONE Insulin Aspart 0 units 01/22/24 22:00 01/23/24 18:21 Insulin Aspart 300 Units/3 Ml Insuln.Pen SUBCUT 01/21/25 21:59 Not Given TID.WM.HS [facility] Protocol Insulin Glargine 25 units 01/22/24 21:00 [...] the morning. Documented By: Norberto Pires DO 183 Signed By: <Electronically signed by Norberto Pires DO> 01/23/24 1851 [facility] Work Phone: 1(317) 627-627607-12-2024 Consult note Author Yaniv Natarajan [facility] January 23, 2024 3:44pm Note Date/Time January 23, 2024 3:44 pm [facility] [address] [place] [address] Urology Consult Note Signed Patient: Lexi Tatum MR#: [id number] : 1945 Acct:[id number] Age/Sex: 78 / F Adm Date: 4 Loc: Room: [address] [place] [address] Type: ADM IN Attending Dr: Norberto Pires [...] and P documented by Dr. Pires yesterday. [facility] Medical History (Updated 01/23/24 @ 10:50 by [...] Confirmed 01/22/24] aspirin 81 mg tablet,delayed release (Beht Low Dose Aspirin) 81 mg PO DAILY [...] % (Auto) 65.0, Lymph % (Auto) 23.9, [place] % (Auto) 6.8, Eos % (Auto) 3.7, Baso % (Auto) 0.6, Nucleat RBC Rel Count 0.1, Neut # (Auto) 5.3, Lymph # (Auto) 2.0, [place] # (Auto) 0.6, Eos # (Auto) 0.3, [...] % (Auto) 68.5, Lymph % (Auto) 21.7, [place] % (Auto) 5.2, Eos % (Auto) 3.3, Baso % (Auto) 1.3, Nucleat RBC Rel Count 0.2, Neut # (Auto) 6.1, Lymph # (Auto) 1.9, [place] # (Auto) 0.5, Eos # (Auto) 0.3, [...] Cloudy A, Urine pH 7.0, Ur Specific [place] 1.010, Urine Protein 50 H, Urine Glucose [...] <Electronically signed by MD Yaniv Natarajan> 01/23/[address] [facility] Work Phone: 1(215) 854-136007-12-2024 Consult note Author Gita Azevedo [facility] January 23, 2024 12:19pm Note Date/Time January 23, 2024 11:1 9am [facility] [address] [place] [address] Nephrology Consult Note Signed Patient: Lexi Tatum MR#: [id number] : 1945 Acct:[id number] Age/Sex: 78 / F Adm Date: 4 Loc: Room: [address] [place] [address] Type: ADM IN Attending Dr: Norberto Pires DO Copies to: MD Norberto Franco DO Marcia E Braun, MD~ Providers Consult Date: 01/23/24 Requesting Provider: Norberto Pires DO Primary Care Provider: Stefan Best MD [facility] Reason for Consult: CKD management History [...] negative unless noted below or in HPI [facility] Medical History (Updated 01/23/24 @ 10:50 by [...] 25 Mg Tablet) 25 mg PO BID.WITH.MEALS [facility] Stop: 01/21/25 19:04 Last Admin: 01/23/24 07:59 [...] Ml) 1,000 mls @ 75 mls/hr IV .[id number] REBA Stop: 01/21/25 18:59 Last Admin: 01/23/24 10:00 Dose: 100 mls/hr Insulin Aspart (Insulin Aspart 300 Units/3 Ml Insuln.Pen) 0 units SUBCUT TID.WM.HS [facility]; Protocol Stop: 01/21/25 21:59 Last Admin: 01/22/24 22:55 Dose: Not Given Insulin Glargine (Insulin Glargine 300 Units/3 Ml Insuln.Pen) 25 units SUBCUT QPM [facility] Stop: 01/21/25 20:59 Last Admin: 01/22/24 23:25 Dose: Not Given Magnesium Hydroxide (Magnesium Hydroxide Susp 30 Ml Udc) 30 ml PO BID PRN PRN Reason: Constipation Stop: 01/21/25 18:58 Metoprolol Tartrate (Metoprolol Tartrate 5 Mg/5 Ml Vial) 5 mg IV-PUSH Q4H PRN PRN Reason: Blood Pressure Stop: 01/21/25 18:58 Oxybutynin Chloride (Oxybutynin Chloride 5 Mg Tab.Er.24) 15 mg PO DAILY [facility] Stop: 01/22/25 08:59 Last Admin: 01/23/24 07:59 Dose: 15 mg Potassium Chloride (Potassium Chloride Er 10 Meq Capsule.Er) 10 meq PO DAILY [facility] Stop: 01/22/25 08:59 Last Admin: 01/23/24 07:59 [...] Cloudy A Urine pH 7.0 Ur Specific [place] 1.010 Urine Protein 50 H Urine Glucose [...] Iraheta Jr., D.O.01/22/2024 4:28 PM Dictation Location: [place] [address] Any impression(s) listed above is documentation that was entered by the reading physician into a diagnostic report(s) for Lexi Hendrickskellen. 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 Review of Systems Review of Systems Review of systems: 10 systems are reviewed and are negative except as mentioned elsewhere in the documentation. [facility] Medical History (Updated 01/22/24 @ 21:34 by [...] % (Auto) 21.7 % (.) 01/22/24 15:18 [place] % (Auto) 5.2 % (.) 01/22/24 15:18 Eos % (Auto) 3.3 % (.) 01/22/24 15:18 Baso % (Auto) 1.3 % (.) 01/22/24 15:18 Nucleat RBC Rel Count 0.2 /100 WBC (0-0.5) 01/22/24 15:18 Neut # (Auto) 6.1 x10E3/uL (1.8-7.7) 01/22/24 15:18 Lymph # (Auto) 1.9 x10E3/uL (1.00-4.8) 01/22/24 15:18 [place] # (Auto) 0.5 x10E3/uL (0.0-0.8) 01/22/24 15:18 [...] pH 7.0 (5.0-9.0) 01/22/24 15:18 Ur Specific [place] 1.010 (1.001-1.030) 01/22/24 15:18 Urine Protein 50 [...] <Electronically signed by Norberto Pires DO> 01/22/242136 [facility] Work Phone: 1([phone]) 237-500803-06-2024 History of Present illness Narrative* Tom Morales [...] normal. Allergies Williams inhibitors, Atorvastatin, Spironolactone, and Uqqjkkg-vhq-sgd reductase inhibitors Current Medications Current Outpatient Medications: [...] exam, discussion and plan. [facility] Work Phone: 1(794) 332-490503-06-2024 Instructions* Patient Instructions* Kaleigh Funez LPN - [...] time of your visit. [facility] Work Phone: 1(825) 629-676902-27-2024 Note [id number]#1.00TIF[facility]23 [id number] [facility]02-19-2024 [id number]#1.00TIFLuis Tan [facility]01-31-2024 Evaluation note* Encounter Date Diagnosis Assessment Notes Treatment Notes Treatment Clinical Notes Jul, Primary osteoarthritis of left hip (ICD-10 - M16.12) Jul, Other We have provide d her a few names of [facility] physicians that are currently taking new [...] can see her 3 months after that. [facility] Other 09-14-2023 Evaluation note* Encounter Date Diagnosis Assessment Notes Treatment Notes Treatment Clinical Notes Mar, Primary osteoarthritis of left hip (ICD-10 - M16.12) Mar, Other 1. We had a ben g discussion with the patient today concerning [...] is considering changing from her current PCP [facility] Other 05-02-2023 Evaluation note* Encounter Date Diagnosis [...] Above note written by Ramandeep Aggarwal LPN, [employer]. Edited and approved by Dr. Ross Colmenares [...] negative findings were considered in medical decision-making. [facility] Other 05-01-2017 History general Narrative - Reported* Type Description Date Medical History [place] Medical History Hyperlipiedmia Medical History PVD Medical History DM Medical History HTN Surgical History Open Heart 11/2016 Surgical History Cardiac Stent 09/2017 Surgical History Cardiac Stent 05/2017 Surgical History C- section 1960 Surgical History Rt iliac angioplasty & stent; Aortobiiliac bifurcation graft 07/20/18 Hospitalization History See above [facility] Other Evaluation + Plan note Future Appointments Appointment Date:03/25/2023 01:00:00 PM Scheduled Provider: Location:[facility] App[facility]ment Type[facility]FM Medicare Wellness [facility] information available [facility] Work Phone: Evaluation noteNo InformationNort [employer] Other Evaluation note* Diagnosis CAD, multiple vessel- Primary S/P CABG x 3 Postsurgical aortocoronary bypass status History of angioplasty Primary hypertension Unspecified essential hypertension Ischemic cardiomyopathy Other specified forms of chronic ischemic heart disease Mixed hyperlipidemia BMI 32.0-32.9,adult Former smoker Personal history of tobacco use, presenting hazards to health Occlusion and stenosis of right carotid artery Shortness of breath documented in this encounter [facility] Work Phone: Evaluation note* Diagnosis CAD, multiple vessel S/P CABG x 3 Postsurgical aortocoronary bypass status Ischemic cardiomyopathy Other specified forms of chronic ischemic heart disease Occlusion and stenosis of right carotid artery Shortness of breath documented in this encounter [facility] Work Phone: Evaluation note* Diagnosis Onset Date Resolution Status Osteoarthritis of left hip a cute Type 2 diabetes mellitus with hyperglycemia acute UTI (urinary tract infection) acute Lumbar pain acute Osteoarthritis of left hip a cute Uncontrolled diabetes mellitus acute [facility] Work Phone: Evaluation note* Diagnosis [...] Type 2 diabetes mellitus with hyperglycemia acute [facility] Work Phone: evaluation note* Diagnosis Onset Date Resolution Status Lumbar pain acute Osteoarthritis of left hip a cute Uncontrolled diabetes mellitus acute OAB (overactive bladder) acu te Preoperative examination acu te Primary osteoarthritis of left hip acute Type 2 diabetes mellitus with hyperglycemia [facility] Work Phone: evaluation note* Diagnosis Onset Date [...] 4, GFR 15-29 ml/min acute Hyperlipidemia acute [id number] acute Secondary hyperparathyroidism acute Type 2 diabetes mellitus wit h diabetic chronic kidney disease [facility] Work Phone: evaluation note* Diagnosis Onset Date [...] 15-29 ml/min acute Gout acute Hyperlipidemia acute [id number] acute Secondary hyperparathyroidism acute Type 2 diabetes [...] acute Hydroureter acute Hyperlipidemia acute Hypertension acute [id number] acute PAD (peripheral artery disease) acute Type 2 diabetes mellitus wit h diabetic chronic kidney disease acute Type 2 diabetes mellitus with hyperglycemia acute Urinary obstruction, unspecified acute [facility] Work Phone: Evaluation note* Diagnosis Onset [...] 15-29 ml/min acute Gout acute Hyperlipidemia acute [id number] acute Secondary hyperparathyroidism acute Type 2 diabetes mellitus wit h diabetic chronic kidney disease acute Anemia of renal disease acut e Bilateral hydronephrosis acu te CAD (coronary artery disease) acute CKD (chronic kidney disease) stage 4, GFR 15-29 ml/min acute CKD stage 4 due to type 2 diabetes mellitus acute History of coronary artery bypass graft acute Hydroureter acute Hyperlipidemia acute Hypertension acute [id number] acute PAD (peripheral artery disease) acute Type 2 diabetes mellitus wit h diabetic chronic kidney disease acute Type 2 diabetes mellitus with hyperglycemia acute Urinary obstruction, unspecified acute Acute kidney injury resolved [facility] Work Phone: Evaluation note* Diagnosis Onset Date Resolution Status Anemia acute CKD stage 4 due to type 2 diabetes mellitus acute OAB (overactive bladder) acu te Primary osteoarthritis of left hip acute Anemia of renal disease acut e CKD (chronic kidney disease) stage 4, GFR 15-29 ml/min acute Gout acute Hyperlipidemia acute [id number] acute Secondary hyperparathyroidism acute Type 2 diabetes mellitus wit h diabetic chronic kidney disease acute Anemia of renal disease acut e Bilateral hydronephrosis acu te CAD (coronary artery disease) acute CKD (chronic kidney disease) stage 4, GFR 15-29 ml/min acute CKD stage 4 due to type 2 diabetes mellitus acute History of coronary artery bypass graft acute Hydroureter acute Hyperlipidemia acute Hypertension acute [id number] acute PAD (peripheral artery disease) acute Type 2 diabetes mellitus wit h diabetic chronic kidney disease acute Type 2 diabetes mellitus with hyperglycemia acute Urinary obstruction, unspecified acute Acute kidney injury resolved Anemia of renal disease acut e CKD (chronic kidney disease) stage 4, GFR 15-29 ml/min acute Primary osteoarthritis of left hip acute [facility] Work Phone: Evaluation note* Diagnosis Onset Date Resolution Status Anemia of renal disease acut e CKD (chronic kidney disease) stage 4, GFR 15-29 ml/min acute Gout acute Hyperlipidemia acute [id number] acute Secondary hyperparathyroidism acute Type 2 diabetes mellitus wit h diabetic chronic kidney disease acute Anemia of renal disease acut e Bilateral hydronephrosis acu te CAD (coronary artery disease) acute CKD (chronic kidney disease) stage 4, GFR 15-29 ml/min acute CKD stage 4 due to type 2 diabetes mellitus acute History of coronary artery bypass graft acute Hydroureter acute Hyperlipidemia acute Hypertension acute [id number] acute PAD (peripheral artery disease) acute Type [...] type 2 diabetes mellitus acute Hyperlipidemia acute [id number] acute Secondary hyperparathyroidism acute Type 2 diabetes mellitus wit h diabetic chronic kidney disease acute [facility] Work Phone: Evaluation note* Diagnosis Onset Date Resolution Status Anemia of renal disease acut e CKD (chronic kidney disease) stage 4, GFR 15-29 ml/min acute Gout acute Hyperlipidemia acute [id number] acute Secondary hyperparathyroidism acute Type 2 diabetes mellitus wit h diabetic chronic kidney disease acute Anemia of renal disease acut e Bilateral hydronephrosis acu te CAD (coronary artery disease) acute CKD (chronic kidney disease) stage 4, GFR 15-29 ml/min acute CKD stage 4 due to type 2 diabetes mellitus acute History of coronary artery bypass graft acute Hydroureter acute Hyperlipidemia acute Hypertension acute [id number] acute PAD (peripheral artery disease) acute Type [...] 15-29 ml/min acute Gout acute Hyperlipidemia acute [id number] acute Proteinuria acute Secondary hyperparathyroidism acute Type 2 diabetes mellitus wit h diabetic chronic kidney disease [facility] Work Phone: Evaluation note* Diagnosis Onset Date Resolution Status Anemia of renal disease acut e CKD (chronic kidney disease) stage 4, GFR 15-29 ml/min acute Gout acute Hyperlipidemia acute [id number] acute Secondary hyperparathyroidism acute Type 2 diabetes mellitus wit h diabetic chronic kidney disease acute Anemia of renal disease acut e Bilateral hydronephrosis acu te CAD (coronary artery disease) acute CKD (chronic kidney disease) stage 4, GFR 15-29 ml/min acute CKD stage 4 due to type 2 diabetes mellitus acute History of coronary artery bypass graft acute Hydroureter acute Hyperlipidemia acute Hypertension acute [id number] acute PAD (peripheral artery disease) acute Type [...] 15-29 ml/min acute Gout acute Hyperlipidemia acute [id number] acute Proteinuria acute Secondary hyperparathyroidism acute Type 2 diabetes mellitus wit h diabetic chronic kidney disease acute UTI (urinary tract infection) acute [facility] Work Phone: Evaluation note* Diagnosis CAD, [...] right carotid artery PVD (peripheral vascular disease) ([facility]) Unspecified peripheral vascular disease documented in this encounter [facility] Work Phone: History of Present illness [...] are reviewed and felt to be satisfactory. -[facility]-Marquita 250 DO Work Phone: History of [...] are reviewed and felt to be satisfactory. [facility] 250 DO Work Phone: History of [...] we suggest no change and follow-up as [id number] 250 DO Work Phone: Hospital course Narrative No data available for this section [facility] Discharge instructions No data available for this section [facility] Discharge instructions Additional Instructions Joint Replacement Discharge Instructions Your safety during your recovery process is important to us. Please seek immediate emergency care if you have sudden chest pain or shortness of breath. Additionally, please call our office at [phone] should any of the following occur: wound bleeding or an increase in bleeding, increased swelling, redness around the incision, fever over 101 F, excessive vomiting, nosebleeds, or bloody stool. Discharge Medications (scheduled) indicated with an X: ___X___ Senokot-S 8.6-50mg tablet. Take 2 tablets by mouth daily for 30 days or as long as you are taking a narcotic pain medication (tramadol, oxycodone, or morphine). Begin the day of surgery. ____X____ Miralax 17g packet. Drink 1 packet mixed with 8 ounces of water daily for 7 days. Begin the morning after surgery. ____X__ Begin your home anticoagulation medication, ASPIRIN AND PLAVIX the morning after surgery. Take as prescribed like you were before surgery. Ecotrin (coated aspirin) 81mg tablet by mouth twice daily for 35 days. Begin the morning after surgery. ____X__ Protonix (pantoprazole) 20mg tablet by mouth daily for 35 days. Begin the morning after surgery. Xarelto (rivaroxaban) 10mg table by mouth daily for 35 days. Begin the morning after surgery. Celebrex (celecoxib) 200mg tablet by mouth twice daily for 30 days. Take with food. Begin the morning after surgery. ____X__ Duricef (cefadroxil) 500mg tablet by mouth twice daily for 7 days. Take with food. Begin the morning after surgery. Bactrim-DS (sulfamethoxazole & trimethoprim) 800mg-160mg tablet by mouth twice daily for 7 days. Take with food. Begin the morning after surgery. Cleocin (clindamycin) 300mg tablet by mouth 3 times (every 8 hours) a day for 7 days. Take with food. Begin the morning after surgery. ____X__ Tylenol (acetaminophen) 500mg tablet. Take 2 tablets 3 times (every 8 hours) a day for 30 days. Begin the night of surgery if necessary. ___X___ Prednisone 10mg tablet. Take 1 tablet daily for 10 days. Begin the morning after surgery. *If you have a patch behind your ear remove it the morning after surgery, discard, and thoroughly wash your hands. Discharge Medications (as needed) indicated with an X: __X____ Zofran (Ondansetron) 4mg tablet by mouth 3 times (every 8 hours) a day as needed for nausea. Begin the night of surgery if necessary. ____X__ Tramadol (Ultram) 50mg tablet. Take 1 tablet by mouth every 6 hours as needed for pain. Do not take at the same time as oxycodone, MS Contin (morphine extended release), or Dilaudid (hydromorphone). Take with food. Begin the night of surgery. Take around the clock for 24 hours after surgery and then utilize if necessary. __X____ Oxycodone 5mg tablet. Take 1 tablet by mouth every 4 hours as needed for pain. If pain unrelenting 30 minutes after taking 1 tablet, then take another 1 tablet. Do not take at the same time as MS Contin (morphine extended release), Dilaudid (hydromorphone), or Tramadol (Ultram). Take with food. Begin the night of surgery. Take around the clock for 24 hours after surgery and then utilize if necessary. MS Contin (morphine extended release) 15mg tablet. Take 1 tablet by mouth every 12 hours as needed for BREAKTHROUGH pain only. If pain unrelenting 30 minutes after you have taken the second oxycodone 5mg tablet, then take 1 MS Contin tablet. Do not take at the same time as oxycodone or Tramadol (Ultram); this is a time-released medication and can only be taken once every 12 hours. Resume oxycodone at next scheduled time (4 hours after the MS Contin tablet). Begin the night of surgery if necessary. Dilaudid (hydromorphone) 2mg tablet. Take 1 tablet by mouth every 8 hours as needed for BREAKTHROUGH pain only. If pain unrelenting 30 minutes after oxycodone, then take 1 Dilaudid tablet. Do not take at the same time as oxycodone or Tramadol (Ultram). Resume oxycodone at next scheduled time (4 hours after the Dilaudid tablet). Begin the night of surgery if necessary. Discharge Instructions: BE SURE YOU HAVE READ THE BOOKLET YOU RECEIVED IN THE OFFICE. Home Health: Home health is a valuable partner in the joint replacement process; they will be your first step to your road of recovery. A therapist will see you the day after your surgery; they will be at your home before noon. They will see you the first three days after surgery and continue working with you until I see you in the office for your 2-week post-op appointment. Follow their instructions. Exercises are to be done several times a day, including the days the therapist does not come to your house! Wound Care: Your surgical incision may be covered with a few different dressings. Your home health physical therapist will remove the gauze dressing the first day after surgery, but they will leave one of the following in place until you see me in the office. Zipline This is a no contact dressing that will stay in place until you are seen in the office for your 2-week post-op appointment. Do not place any ointments, creams, or lotions on your wound. Avoid getting outside on hot days; excessive sweating can increase the risk of wound infection. If there is drainage, place a gauze dressing over the wound, secure with paper tape, and call your therapist. A small amount of drainage is expected. When you do bathe, allow soapy water to run over the dressing site, but do not scrub the incision or the dressing. Pat the dressing site dry with a towel after you shower. DO NOT take a bath, enter a pool, allen/pond,or ocean until we discuss this at your post-op appointments. Aquacel This is a silver-impregnated dressing with antibiotic properties that will stay in place until you are seen in the office for your 2-week post-op appointment. Do not place any ointments, creams, or lotions around your wound or on the dressing. Avoid getting outside on hot days; excessive sweating can increase the risk of wound infection. If there is drainage, place a gauze dressing over the wound, secure with paper tape, and call your therapist. A small amount of drainage is expected. When you do bathe, allow soapy water to run over the dressing site, but do not scrub the incision or the dressing. Pat the dressing site dry with a towel after you shower. DO NOT take a bath, enter a pool, allen pond, or ocean until we discuss this at your post-op appointments. Prevena This is a negative pressure wound therapy device with a collection container for any drainage. If this becomes completely full, call your therapist to discuss changing the collection container. This device also has a 14-day battery. Your home health physical therapist will remove the dressing 14 days after your surgery; it will be removed prior to your initial follow up appointment. Do not place any ointments, creams, or lotions around your wound or on the dressing. Avoid getting outside on hot days; excessive sweating can increase the risk of wound infection. When you do bathe, allow soapy water to run over the dressing site, but do not scrub the device or the surrounding skin. DO NOT get the device wet! Pat the dressing site dry with a towel after you shower. DO NOT take a bath, enter a pool, allen/pond, or ocean until we discuss this at your post-op appointments. What to expect: SWELLING: Ice frequently, a minimum of 4 times a day for 20 minutes at a time for the first 2-3 weeks after surgery, especially after doing your exercises. While icing, elevate your foot above the level of your heart with several pillows under your ankle. DO NOT put pillows under your knee. (KNEE REPLACEMENT ONLY) Avoid prolonged periods of sitting over the first 7 to 10 days after surgery. We recommend that you not sit for more than 45 to 60 minutes at a time. You should get up and move around or lie down and elevate your leg. BRUISING: You will have bruising to some degree; possibly the thigh, calf, ankle, foot, and in some cases the genitalia. Do not be alarmed. The bruising will eventually go away on its own as the body reabsorbs the blood. BLISTERS: Some patients may develop blisters around the knee/hip and/or the incision. Although they can be alarming in appearance, they pose no significant risk to your joint replacement. Leave the blisters alone and allow them to heal on their own. NUMBNESS: Usually normal around the incision. For knee replacements, the outside of the knee may be involved as well. The area of numbness may shrink over time or it could last forever. For hip replacements, you may notice numbness on the outside of the thigh extending down the outside of the knee. The area of numbness may shrink over time or it could last forever. SUZI hicks (stockinette): Wear them for 4 weeks on the operative side and 2 weeks on the nonoperative side. Try to wear these as 24/7 as possible to help decrease swelling. Weight Bearing, Walkers, and Canes: Do not remove your knee immobilizer. Do not walk without this until your therapist has removed it either on the first day after surgery or the second day after surgery. Do not attempt to walk without your walker and your hourly caregiver until the therapist checks you the following day after surgery and gives you further instruction. Typically, you will start out on a walker, then progress to a cane, and eventually walk without any device. Some of our patients do this within 2 weeks of surgery, while others can take 6 weeks. Pain Medications: You may experience significant pain. Our goal is to make your pain manageable (not absent, since this is usually not realistic) and to allow you to progress with your therapy for your hip or knee. Take your pain medication scheduled for the first 24 hours, then take it as needed. Always take your pain medication with food to decrease nausea and vomiting. Be sure to take stool softeners and/or laxatives as directed. You may take [id number]-[id number] Benadryl if itching occurs without a rash or hives. Icing and elevation will help relieve pain as well, do not underestimate the power of ice and elevation. We do recommend that you stop taking narcotic pain medications by 4-6 weeks after surgery and if necessary, continue to use anti-inflammatory medications such as Mobic (meloxicam), Celebrex (celecoxib), or an [id number]-xicuspg medication (Aleve, Motrin, Ibuprofen, etc). Driving an automobile: You must be off all narcotic pain medications. If your right leg is involved, that is your braking leg. Your physical therapist needs to help you determine that you can actively and firmly hit the brake and sustain it as this could be a life or situation for you or someone else. You will not be cleared to drive by me or anyone else. It is up to you to know when you feel safe to drive. We do recommend utilizing an empty parking lot to practice and ensure you are able to slam on the brakes if necessary during an emergency. Low Grade Fever (less than 101 F): Low-grade fevers can be treated, but make sure you do not exceed the daily limit of Tylenol. The daily limit on Tylenol (acetaminophen) is 3000 mg in a 24-hour period. If you have procedures done after your joint replacement: Dental procedures (including routine cleaning), prostate surgery, colonoscopy, and other invasive procedures could increase your risk for a total joint infection. During a postoperative visit, be sure to discuss the use of prophylactic antibiotic therapy prior to and sometimes after these invasive procedures. The decision to utilize antibiotics before and/or after these invasive procedures is a shared decision process between you and myself. Constipation: If you develop constipation in spite of taking stool softeners and/or laxatives, follow the protocol below: Day 2 of constipation if no results, use a Dulcolax suppository Day 3 of constipation if no results, use a fleet s enema. If no results by the afternoon, notify our office. Bladder Habits: If you have difficulty urinating or are unable to urinate within 12 hours after arriving home following your surgery, please notify our office immediately. Expectations for Pain Relief after Joint Replacement: Patients predictably improve for up to a year after a hip or knee replacement. It is normal for you to still have some pain in your hip or knee for as much as 3 to 9 months after surgery. The pain relief will come, but you should not expect great relief of pain in less than this time. High demand activities (such as going up and down stairs) frequently take 3 to 9 months before patients feel comfortable doing them. It is permissible to go up and down stairs whenever you can safely navigate them, but it will take much longer to do them normally and with great confidence. Questions or Problems: If you have any questions, problems, or confusion about your recovery after your hip or knee replacement, please feel free to call our office at [phone]. You are a priority of ours and we will not be upset with you if you call. We would much rather you call to confirm aspects of your recovery process as opposed to possibly hindering your recovery with inappropriate care. We are committed to providing you with the best care possible. Da Lozano II, MD Updated 08/04/23[facility] Work Phone: Progress note No data available for this section [facility] Consultation (Routine) - Authorized Specialty Diagnoses / Procedures Referred By Dimitri hartley Referred To Contact Cardiology Diagnoses Occlusion and stenosis of right carotid artery Procedures Follow Up In Cardiology Tom Morales MD [address] [facility] 2, [address] [address] Angela Braun APRN-ELLIOT [address] [facility] [address], [address] [address] Referral ID Status Reason Start Date Expiration Date V isits Requested Visits Authorized [id number] Authorized 09/17/2023 09/16/2024 1 1 * Cardiac Stress Testing (Routine) - Pending Review Specialty Diagnoses / Procedures Referred By Dimitri t Referred To Contact Radiology Diagnoses CAD, multiple vessel S/P CABG x 3 Ischemic cardiomyopathy Occlusion and stenosis of right carotid artery Shortness of breath Procedures Nuclear Stress Test CHG MYOCARDIAL SPECT MULTIPLE STUDIES Tom Morales MD [address] [place] [address] 2, [address] [address] Referral ID Status Reason Start Date Expiration Date V isits Requested Visits Authorized [id number] Pending Review 09/17/2023 09/16/2024 5 5 [facility] Work Phone: Rellsk for referral (narrative)No reason for referral information availableBar[facility] Work Phone: Reason for visit NarrativeNEW SELF REFERRAL [facility] Other Summary Purpose Family History Unknown Family [...] Malignant neoplasm of kidney Unknown Advance Directives Advance Directive Response Recorded Date/ [...] is of left hip (M16.12) Referral Organization [facility] [employer] [facility] Referring Provider First Name Ross Referring Provider Last Name Darrian Referring Provider Specialty Pain Medici ne Referred Organization [facility] Referred Provider Da Lozano II Referred Address [address] [place], [place],[address] Referred Provider Specialty Orthopedic S urgery Referral [...] SPECT MULTIPLE STUDIES Tom Morales MD [address] [facility] 2, [facility] [address] [place] [address] Referral ID Status Reason Start Date Expiration Date V isits Requested Visits Authorized [id number] Pending Review 09/17/2023 09/16/2024 5 5 Chief [...] disease) stage 4, GFR 15-29 ml/min Hyperlipidemia [id number] Secondary hyperparathyroidism Type 2 diabetes mellitus with [...] stage 4, GFR 15-29 ml/min Gout Hyperlipidemia [id number] Secondary hyperparathyroidism Type 2 diabetes mellitus with diabetic chronic kidney disease Acute kidney injury Anemia of renal disease Bilateral hydronephrosis CAD (coronary artery disease) CKD (chronic kidney disease) CKD (chronic kidney disease) stage 4, GFR 15-29 ml/min CKD stage 4 due to type 2 diabetes mellitus History of CHF (congestive heart failure) History of coronary artery bypass graft Hydronephrosis Hydroureter Hyperlipidemia Hypertension [id number] PAD (peripheral artery disease) Type 2 diabetes mellitus with diabetic chronic kidney disease Type 2 diabetes mellitus with hyperglycemia Urinary obstruction, unspecified Chief Complaint presurgical clearenc e. lt total hip M16.12 Z79.899 M81.0 pre surgical testing results RENAL CKD [address] sunshine sent [place] [facility] [place] in kidney Reason for Visit OAB (overactive blad edmund) Preoperative examination Primary osteoarthritis of left hip Type 2 diabetes mellitus with hyperglycemia Anemia CKD stage 4 due to type 2 diabetes mellitus OAB (overactive bladder) Primary osteoarthritis of left hip Anemia of renal disease CKD (chronic kidney disease) stage 4, GFR 15-29 ml/min Gout Hyperlipidemia [id number] Secondary hyperparathyroidism Type 2 diabetes mellitus with diabetic chronic kidney disease Anemia of renal disease Bilateral hydronephrosis CAD (coronary artery disease) CKD (chronic kidney disease) stage 4, GFR 15-29 ml/min CKD stage 4 due to type 2 diabetes mellitus History of coronary artery bypass graft Hydroureter Hyperlipidemia Hypertension [id number] PAD (peripheral artery disease) Type 2 diabetes mellitus with diabetic chronic kidney disease Type 2 diabetes mellitus with hyperglycemia Urinary obstruction, unspecified Acute kidney injury Chief Complaint pre surgical testing results RENAL CKD [address] sunshine sent [place] [facility] [place] in kidney [facility], Acute metobolic encephalopaty, [place] Reason for Visit Anemia CKD stage 4 due to type 2 diabetes mellitus OAB (overactive bladder) Primary osteoarthritis of left hip Anemia of renal disease CKD (chronic kidney disease) stage 4, GFR 15-29 ml/min Gout Hyperlipidemia [id number] Secondary hyperparathyroidism Type 2 diabetes mellitus with diabetic chronic kidney disease Anemia of renal disease Bilateral hydronephrosis CAD (coronary artery disease) CKD (chronic kidney disease) stage 4, GFR 15-29 ml/min CKD stage 4 due to type 2 diabetes mellitus History of coronary artery bypass graft Hydroureter Hyperlipidemia Hypertension [id number] PAD (peripheral artery disease) Type 2 diabetes mellitus with diabetic chronic kidney disease Type 2 diabetes mellitus with hyperglycemia Urinary obstruction, unspecified Acute kidney injury Anemia of renal disease CKD (chronic kidney disease) stage 4, GFR 15-29 ml/min Primary osteoarthritis of left hip Chief Complaint RENAL CKD [address] sunshine sent [place] [facility] [place] stents in kidney [facility], Acute metobolic encephalopaty, [place] RENAL 2 MONTH F/U Reason for Visit Anemia of renal dise ase CKD (chronic kidney disease) stage 4, GFR 15-29 ml/min Gout Hyperlipidemia [id number] Secondary hyperparathyroidism Type 2 diabetes mellitus with diabetic chronic kidney disease Anemia of renal disease Bilateral hydronephrosis CAD (coronary artery disease) CKD (chronic kidney disease) stage 4, GFR 15-29 ml/min CKD stage 4 due to type 2 diabetes mellitus History of coronary artery bypass graft Hydroureter Hyperlipidemia Hypertension [id number] PAD (peripheral artery disease) Type 2 diabetes [...] due to type 2 diabetes mellitus Hyperlipidemia [id number] Secondary hyperparathyroidism Type 2 diabetes mellitus with diabetic chronic kidney disease Chief Complaint RENAL CKD [address] sunshine sent over [facility] [place] stents in kidney [facility], Acute metobolic encephalopaty, [place] RENAL 2 MONTH F/U UA frequency, burning Reason for Visit Anemia of renal dise ase CKD (chronic kidney disease) stage 4, GFR 15-29 ml/min Gout Hyperlipidemia [id number] Secondary hyperparathyroidism Type 2 diabetes mellitus with diabetic chronic kidney disease Anemia of renal disease Bilateral hydronephrosis CAD (coronary artery disease) CKD (chronic kidney disease) stage 4, GFR 15-29 ml/min CKD stage 4 due to type 2 diabetes mellitus History of coronary artery bypass graft Hydroureter Hyperlipidemia Hypertension [id number] PAD (peripheral artery disease) Type 2 diabetes [...] stage 4, GFR 15-29 ml/min Gout Hyperlipidemia [id number] Proteinuria Secondary hyperparathyroidism Type 2 diabetes mellitus with diabetic chronic kidney disease Chief Complaint RENAL CKD [address] sunshine sent [place] [facility] [place] stents in kidney [facility], Acute metobolic encephalopaty, [place] RENAL 2 MONTH F/U UA frequency, burning Reason for Visit Anemia of renal dise ase CKD (chronic kidney disease) stage 4, GFR 15-29 ml/min Gout Hyperlipidemia [id number] Secondary hyperparathyroidism Type 2 diabetes mellitus with diabetic chronic kidney disease Anemia of renal disease Bilateral hydronephrosis CAD (coronary artery disease) CKD (chronic kidney disease) stage 4, GFR 15-29 ml/min CKD stage 4 due to type 2 diabetes mellitus History of coronary artery bypass graft Hydroureter Hyperlipidemia Hypertension [id number] PAD (peripheral artery disease) Type 2 diabetes [...] stage 4, GFR 15-29 ml/min Gout Hyperlipidemia [id number] Proteinuria Secondary hyperparathyroidism Type 2 diabetes mellitus with diabetic chronic kidney disease UTI (urinary tract infection) Chief Complaint Admit Date [facility], Acute metobolic encephalopaty, [place] March 05, 2024 [...] 07, 2024 10:09am Chief Complaint Admit Date [facility], Acute metobolic encephalopaty, [place] March 05, 2024 [...] 1:13pm Anemia of renal disease March 22, 1:52pm CKD (chronic kidney disease) stage 4, [...] May 142023 10:32am Chief Complaint Admit Date FT, Acute metobolic encephalopaty, [place] March 05, 2024 [...] 03, 2024 10:50am Chief Complaint Admit Date Diabetes-HIGH RISK July 01, 2024 10:55am Hip pain July 12, 2024 7:30am spes drop July 15, 2024 12 :41pm RENAL 4 MONTH F/U August 03, 2024 1 0:50am Amb Documentation September 27, 2024 11: 57am Reason for Visit Admit Date Heart failure, unspecified June 10:55am Primary osteoarthritis of left hip Decem 2023 10:55am Type 2 diabetes mellitus with hyperglyce [facility] July 01, 2024 10:55am Anemia of renal [...] 10:50am Chief Complaint Admit Date Hip pain July 12, 2024 7:30am spes drop July 15, 2024 12 :41pm RENAL 4 MONTH F/U August 03, 2024 1 0:50am Amb Documentation September 27, 2024 11: 57am TBH, UTI, Dehydration-HIGH RISK October 042024 3:28pm Reason for Visit Admit Date Anemia of renal disease August 03 10:50am [...] 03, 2024 10:50am Chief Complaint Admit Date RENAL 4 MONTH F/U August 03, 2024 1 0:50am Amb Documentation September 27, 2024 11: 57am TBH, UTI, Dehydration-HIGH RISK October 042024 3:28pm Bilateral Hydronephrosis, Ureteral Stric tures October 22, 2024 5:58am Reason for Visit Admit Date Anemia of renal disease August 03 10:50am [...] chronic kidney disease August 03, 2024 10:50am CKD (chronic kidney disease) stage 4, GF R 15-29 ml/min October 04, 2024 3:28pm Hypertension October 04, 2024 3:2 8pm Osteoarthritis of left hip October 04, 2 025 3:28pm UTI (urinary tract infection), bacterial October 04, 2024 3:28pm Weakness October 04, 2024 3:2 8pm Chief Complaint Admit Date Amb Documentation September 27, 2024 11: 57am TBH, UTI, Dehydration-HIGH RISK October 042024 3:28pm Bilateral Hydronephrosis, Ureteral Stric tures October 22, 2024 5:58am UA:Tired November 15, 2024 3:16pm Reason for Visit Admit Date CKD (chronic kidney disease) stage 4, GF R 15-29 ml/min October 04, 2024 3:28pm Hypertension October 04, 2024 3:2 8pm Osteoarthritis of left hip October 04, 2 025 3:28pm UTI (urinary tract infection), bacterial October 04, 2024 3:28pm Weakness October 04, 2024 3:2 8pm UTI (urinary tract infection), bacterial November 15, 2024 3:16pm Reason for Visit Admit Date CKD (chronic kidney disease) stage 4, GF R 15-29 ml/min October 04, 2024 3:28pm Hypertension October 04, 2024 3:2 8pm Osteoarthritis of left hip October 04, 2 025 3:28pm UTI (urinary tract infection), bacterial October 04, 2024 3:28pm Weakness October 04, 2024 3:2 8pm Chief Complaint Admit Date Bilateral Hydronephrosis, Ureteral Stric tures October 22, 2024 5:58am UA:Tired November 15, 2024 3:16pm N39.0 A49.9 November 15, 2024 3:30pm A1C January 11, 2025 3:11p m Reason for Visit Admit Date UTI (urinary tract infection), bacterial November 15, 2024 3:16pm Chief Complaint Admit Date UA:Tired November 15, [...] with hyperglyce mima January 11, 2025 3:11pm Chief Complaint Admit Date UA:Tired November 15, 2024 3:16pm N39.0 A49.9 November 15, 2024 3:30pm A1C January 11, 2025 3:11p m Surgical Clearance January 31, 2025 3:29 pm 6 month f/u February 08, 2025 3:30 pm Reason for Visit Admit Date UTI [...] with hyperglyce mima January 11, 2025 3:11pm Acute on chronic systolic (congestive) h eart failure January 31, 2025 3:29pm CKD (chronic kidney disease) stage 4, GF R 15-29 ml/min January 31, 2025 3:29pm Hypertension January 31, 2025 3:29 pm Osteoarthritis of left hip January 31 3:29pm Preoperative examination January 31, 2025 3:29pm Type 2 diabetes mellitus with hyperglyce mima January 31, 2025 3:29pm Anemia of renal disease February 08, 2025 3:30pm CKD (chronic kidney disease) stage 4, GF R 15-29 ml/min February 08, 2025 3:30pm Gout February 08, 2025 3:30 pm Hyperlipidemia February 08, 2025 3:30 pm Hypertensive chronic kidney disease with stage 1 through stage 4 chronic ki February 08, 2025 3:30pm Proteinuria February 08, 2025 3:30 pm Secondary hyperparathyroidism February 08, 2025 3:30pm Type 2 diabetes mellitus with diabetic c hronic kidney disease February 08, 2025 3:30pm Chief Complaint Admit Date A1C January 11, 2025 3:11p m Surgical Clearance January 31, 2025 3:29 pm 6 month f/u February 08, 2025 3:30 pm Hip pain March 03, 2025 1: 46pm Reason for Visit Admit Date Acute on chronic systolic (congestive) h eart failure January 11, 2025 3:11pm CKD (chronic kidney disease) stage 4, GF R 15-29 ml/min January 11, 2025 3:11pm Hypertension January 11, 2025 3:11p m Morbid (severe) obesity due to excess ca lories January 11, 2025 3:11pm Osteoarthritis of left hip January 11 3:11pm Type 2 diabetes mellitus with hyperglyce mima January 11, 2025 3:11pm Acute on chronic systolic (congestive) h eart failure January 31, 2025 3:29pm CKD (chronic kidney disease) stage 4, GF R 15-29 ml/min January 31, 2025 3:29pm Hypertension January 31, 2025 3:29 pm Osteoarthritis of left hip January 31 3:29pm Preoperative examination January 31, 2025 3:29pm Type 2 diabetes mellitus with hyperglyce mima January 31, 2025 3:29pm Anemia of renal disease February 08, 2025 3:30pm CKD (chronic kidney disease) stage 4, GF R 15-29 ml/min February 08, 2025 3:30pm Gout February 08, 2025 3:30 pm Hyperlipidemia February 08, 2025 3:30 pm Hypertensive chronic kidney disease with stage 1 through stage 4 chronic ki February 08, 2025 3:30pm Proteinuria February 08, 2025 3:30 pm Secondary hyperparathyroidism February 08, 2025 3:30pm Type 2 diabetes mellitus with diabetic c hronic kidney disease February 08, 2025 3:30pm Chief Complaint Admit Date A1C January 11, 2025 3:11p m Surgical Clearance January 31, 2025 3:29 pm 6 month f/u February 08, 2025 3:30 pm Hip pain March 03, 2025 1: 46pm H&P LTHA March 09, 2025 2: 04pm M25.552 - Pain in left hip March 09, 2025 3:29pm Chief Complaint Admit Date A1C January 11, 2025 3:11p m Surgical Clearance January 31, 2025 3:29 pm 6 month f/u February 08, 2025 3:30 pm Hip pain March 03, 2025 1: 46pm H&P LTHA March 09, 2025 2: 04pm M25.552 - Pain in left hip March 09, 2025 3:29pm Pre-Op LTH March 09, 2025 3: 48pm Reason for Visit Admit Date Acute on chronic systolic (congestive) h eart failure January 11, 2025 3:11pm CKD (chronic kidney disease) stage 4, GF R 15-29 ml/min January 11, 2025 3:11pm Hypertension January 11, 2025 3:11p m Morbid (severe) obesity due to excess ca lories January 11, 2025 3:11pm Osteoarthritis of left hip January 11 3:11pm Type 2 diabetes mellitus with hyperglyce [facility] January 11, 2025 3:11pm Acute on chronic systolic (congestive) h eart failure January 31, 2025 3:29pm CKD (chronic kidney disease) stage 4, GF R 15-29 ml/min January 31, 2025 3:29pm Hypertension January 31, 2025 3:29 pm Osteoarthritis of left hip January 31 3:29pm Preoperative examination January 31, 2025 3:29pm Type 2 diabetes mellitus with hyperglyce [facility] January 31, 2025 3:29pm Anemia of renal disease February 08, 2025 3:30pm CKD (chronic kidney disease) stage 4, GF R 15-29 ml/min February 08, 2025 3:30pm Gout February 08, 2025 3:30 pm Hyperlipidemia February 08, 2025 3:30 pm Hypertensive chronic kidney disease with stage 1 through stage 4 chronic ki February 08, 2025 3:30pm Proteinuria February 08, 2025 3:30 pm Secondary hyperparathyroidism February 08, 2025 3:30pm Type 2 diabetes mellitus wit h diabetic chronic kidney disease February 08, 2025 3:30pm Osteoarthritis of left hip March 09, 2025 2:04pm Chief Complaint Admit Date A1C January 11, 2025 3:11p m Surgical Clearance January 31, 2025 3:29 pm 6 month f/u February 08, 2025 3:30 pm Hip pain March 03, 2025 1: 46pm H&P LTHA March 09, 2025 2: 04pm M25.552 - Pain in left hip March 09, 2025 3:29pm Pre-Op LTH March 09, 2025 3: 48pm Prolonged March 11, 2025 7: 28am Chief Complaint Admit Date A1C January 11, 2025 3:11p m Surgical Clearance January 31, 2025 3:29 pm 6 month f/u February 08, 2025 3:30 pm Hip pain March 03, 2025 1: 46pm H&P LTHA March 09, 2025 2: 04pm M25.552 - Pain in left hip March 09, 2025 3:29pm Pre-Op LTH March 09, 2025 3: 48pm Prolonged March 11, 2025 7: 28am Hip pain March 21, 2025 10:00am Reason for Visit Admit Date Acute on chronic systolic (congestive) h eart failure January 11, 2025 3:11pm CKD (chronic kidney disease) stage 4, GF R 15-29 ml/min January 11, 2025 3:11pm Hypertension January 11, 2025 3:11p m Morbid (severe) obesity due to excess ca lories January 11, 2025 3:11pm Osteoarthritis of left hip January 11 3:11pm Type 2 diabetes mellitus with hyperglyce mima January 11, 2025 3:11pm Acute on chronic systolic (congestive) h eart failure January 31, 2025 3:29pm CKD (chronic kidney disease) stage 4, GF R 15-29 ml/min January 31, 2025 3:29pm Hypertension January 31, 2025 3:29 pm Osteoarthritis of left hip January 31 3:29pm Preoperative examination January 31, 2025 3:29pm Type 2 diabetes mellitus with hyperglyce mima January 31, 2025 3:29pm Anemia of renal disease February 08, 2025 3:30pm CKD (chronic kidney disease) stage 4, GF R 15-29 ml/min February 08, 2025 3:30pm Gout February 08, 2025 3:30 pm Hyperlipidemia February 08, 2025 3:30 pm Hypertensive chronic kidney disease with stage 1 through stage 4 chronic ki February 08, 2025 3:30pm Proteinuria February 08, 2025 3:30 pm Secondary hyperparathyroidism February 08, 2025 3:30pm Type 2 diabetes mellitus wit h diabetic chronic kidney disease February 08, 2025 3:30pm Osteoarthritis of left hip March 09, 2025 2:04pm CAD (coronary artery disease) March 21, 2025 10:00am [facility] Chief Complaint Admit Date A1C January 11, 2025 3:11p m Surgical Clearance January 31, 2025 3:29 pm 6 month f/u February 08, 2025 3:30 pm Hip pain March 03, 2025 1: 46pm H&P LTHA March 09, 2025 2: 04pm M25.552 - Pain in left hip March 09, 2025 3:29pm Pre-Op LTH March 09, 2025 3: 48pm Prolonged March 11, 2025 7: 28am Hip pain March 21, 2025 10:00am left hip osteoarthritis s/p LIVIER Septembe r 2024 5:26pm left hip osteoarthritis s/p LIVIER Septembe r 2024 12:00am Reason for Visit Admit Date Acute on chronic systolic (congestive) h eart failure January 11, 2025 3:11pm CKD (chronic kidney disease) stage 4, GF R 15-29 ml/min January 11, 2025 3:11pm Hypertension January 11, 2025 3:11p m Morbid (severe) obesity due to excess ca lories January 11, 2025 3:11pm Osteoarthritis of left hip January 11 3:11pm Type 2 diabetes mellitus with hyperglyce [facility] January 11, 2025 3:11pm Acute on chronic systolic (congestive) h eart failure January 31, 2025 3:29pm CKD (chronic kidney disease) stage 4, GF R 15-29 ml/min January 31, 2025 3:29pm Hypertension January 31, 2025 3:29 pm Osteoarthritis of left hip January 31 3:29pm Preoperative examination January 31, 2025 3:29pm Type 2 diabetes mellitus with hyperglyce [facility] January 31, 2025 3:29pm Anemia of renal disease February 08, 2025 3:30pm CKD (chronic kidney disease) stage 4, GF R 15-29 ml/min February 08, 2025 3:30pm Gout February 08, 2025 3:30 pm Hyperlipidemia February 08, 2025 3:30 pm Hypertensive chronic kidney disease with stage 1 through stage 4 chronic ki February 08, 2025 3:30pm Proteinuria February 08, 2025 3:30 pm Secondary hyperparathyroidism February 08, 2025 3:30pm Type 2 diabetes mellitus wit h diabetic chronic kidney disease February 08, 2025 3:30pm Osteoarthritis of left hip March 09, 2025 2:04pm CAD (coronary artery disease) March 21, 2025 10:00am Heart failure, unspecified March 10:00am Hyperlipidemia March 21, 2025 10:00am Hypertension March 21, 2025 10:00am Morbid (severe) obesity due to excess ca lories March 21, 2025 10:00am Osteoarthritis of left hip March 10:00am S/P total left hip arthroplasty Septembe r 2024 10:00am Weakness March 21, 2025 10:00am Acute on chronic systolic (congestive) h eart failure March 22, 2025 5:26pm CKD (chronic kidney disease) March 222024 5:26pm CKD (chronic kidney disease) stage 4, GF R 15-29 ml/min March 22, 2025 5:26pm Hyperlipidemia March 22, 2025 5:26pm Hypertension March 22, 2025 5:26pm Impaired mobility March 22, 2025 5:26pm PAD (peripheral artery disease) Septembe r 2024 5:26pm S/P total left hip arthroplasty Septembe r 2024 5:26pm Steroid-induced hyperglycemia March 22, 2025 5:26pm Type 2 diabetes mellitus with hyperglyce mima March 22, 2025 5:26pm Chief Complaint Admit Date A1C January 11, 2025 3:11p m Surgical Clearance January 31, 2025 3:29 pm 6 month f/u February 08, 2025 3:30 pm Hip pain March 03, 2025 1: 46pm H&P LTHA March 09, 2025 2: 04pm M25.552 - Pain in left hip March 09, 2025 3:29pm Pre-Op LTH March 09, 2025 3: 48pm Prolonged March 11, 2025 7: 28am Hip pain March 21, 2025 10:00am left hip osteoarthritis s/p LIVIER Septembe r 2024 5:26pm left hip osteoarthritis s/p LIVIER Septembe r 2024 12:00am Amb Documentation April 04, 2025 3:32pm 2 WK POST OP LTHA April 06, 2025 2:07pm Reason for Visit Admit Date Acute on chronic systolic (congestive) h eart failure January 11, 2025 3:11pm CKD (chronic kidney disease) stage 4, GF R 15-29 ml/min January 11, 2025 3:11pm Hypertension January 11, 2025 3:11p m Morbid (severe) obesity due to excess ca lories January 11, 2025 3:11pm Osteoarthritis of left hip January 11 3:11pm Type 2 diabetes mellitus with hyperglyce mima January 11, 2025 3:11pm Acute on chronic systolic (congestive) h eart failure January 31, 2025 3:29pm CKD (chronic kidney disease) stage 4, GF R 15-29 ml/min January 31, 2025 3:29pm Hypertension January 31, 2025 3:29 pm Osteoarthritis of left hip January 31 3:29pm Preoperative examination January 31, 2025 3:29pm Type 2 diabetes mellitus with hyperglyce mima January 31, 2025 3:29pm Anemia of renal disease February 08, 2025 3:30pm CKD (chronic kidney disease) stage 4, GF R 15-29 ml/min February 08, 2025 3:30pm Gout February 08, 2025 3:30 pm Hyperlipidemia February 08, 2025 3:30 pm Hypertensive chronic kidney disease with stage 1 through stage 4 chronic ki February 08, 2025 3:30pm Proteinuria February 08, 2025 3:30 pm Secondary hyperparathyroidism February 08, 2025 3:30pm Type 2 diabetes mellitus wit h diabetic chronic kidney disease February 08, 2025 3:30pm Osteoarthritis of left hip March 09, 2025 2:04pm CAD (coronary artery disease) March 21, 2025 10:00am Heart failure, unspecified March 10:00am Hyperlipidemia March 21, 2025 10:00am Hypertension March 21, 2025 10:00am Morbid (severe) obesity due to excess ca lories March 21, 2025 10:00am Osteoarthritis of left hip March 10:00am S/P total left hip arthroplasty Septembe 2024 10:00am Weakness March 21, 2025 10:00am Acute on chronic systolic (congestive) h eart failure March 22, 2025 5:26pm CKD (chronic kidney disease) March 222024 5:26pm CKD (chronic kidney disease) stage 4, GF R 15-29 ml/min Elise 9th, 2025 5:26pm Hyperlipidemia March 22, 2025 5:26pm Hypertension March 22, 2025 5:26pm Impaired mobility March 22, 2025 5:26pm PAD (peripheral artery disease) Septembe r 2024 5:26pm S/P total left hip arthroplasty Septembe r 2024 5:26pm Steroid-induced hyperglycemia March 22, 2025 5:26pm Type 2 diabetes mellitus with hyperglyce mima March 22, 2025 5:26pm S/P total left hip arthroplasty Septembe r 2024 2:07pm Additional Source Comments INFORMATION SOURCE (unrecogn ized section and content) DATE CREATED AUTHOR 12/31/2017 [facility] DATE CREATED AUTHOR AUTHOR'S ORGANIZ ATION 01/07/2018 [facility] DATE CREATED AUTHOR AUTHOR'S ORGANIZ ATION 05/17/2020 [facility] DATE CREATED AUTHOR AUTHOR'S ORGANIZ ATION 02/14/2022 [facility] DATE CREATED AUTHOR AUTHOR'S ORGANIZ ATION 07/26/2022 [facility] DATE CREATED AUTHOR AUTHOR'S ORGANIZ ATION 07/26/2022 [employer] DATE CREATED AUTHOR AUTHOR'S ORGANIZ ATION 02/28/2024 Tan Treasure [facility] DATE CREATED AUTHOR AUTHOR'S ORGANIZ ATION 02/29/2024 Tan Treasure [facility] DATE CREATED AUTHOR AUTHOR'S ORGANIZ ATION 03/01/2024 [place] Jose Alejandro [facility] DATE CREATED AUTHOR AUTHOR'S ORGANIZ ATION 03/04/2024 Tan Jose Alejandro [facility] DATE CREATED AUTHOR AUTHOR'S ORGANIZ ATION 03/07/2024 Tan Jose Alejandro [facility] DATE CREATED AUTHOR AUTHOR'S ORGANIZ ATION 03/11/2024 [facility] DATE CREATED AUTHOR AUTHOR'S ORGANIZ ATION 05/16/2024 [facility] DATE CREATED AUTHOR AUTHOR'S ORGANIZ ATION 02/05/2025 [facility] DATE CREATED AUTHOR AUTHOR'S ORGANIZ ATION 03/08/2025 [facility] DATE CREATED AUTHOR AUTHOR'S ORGANIZ ATION 04/05/2025 [facility] Care Teams (unrecognized sec tion and content) Team Status: Active Member Role Status Dates Stefan Best MD Primary Care Provider Active Team Status: Inactive Member Role Status Dates Stefan Best MD Primary Care Provider Active Start: October 22, 2024 End: October 22, 2024 Yaniv Natarajan MD Attending Provider Active St art: October 22, 2024 End: October 22, 2024 Team Status: Inactive Member Role Status Dates Stefan Best MD Primary Care Provider Active Start: November 15, 2024 End: November 15, 2024 Stefan Best MD Attending Provider Active St art: November 15, 2024 End: November 15, 2024 Team Status: Inactive Member Role Status Dates Stefan Best MD Primary Care Provider Active Start: January 11, 2025 End: January 11, 2025 Stefan Best MD Attending Provider Active St art: January 11, 2025 End: January 11, 2025 Team Status: Active Member Role Status Dates Stefan Best MD Primary Care Provider Active Start: September 26, 2024 Isiah Mata MD Attending Provider Active St art: September 26, 2024 Team Status: Active Member Role Status Dates Stefan Best MD Primary Care Provide r, Attending Provider Active Start: September 27, 2024 Team Status: Active Member Role Status Dates Stefan Best MD Primary Care Provider Active Start: September 27, 2024 Gardenia Castellanos CMA Attending Provider Active Start: September 27, 2024 Team Status: Inactive Member Role Status Dates Stefan Best MD Primary Care Provide r, Attending Provider Active Start: October 04, 2024 End: October 04, 2024 Team Status: Inactive Member Role Status Dates Stefan Best MD Primary Care Provide r, Attending Provider Active Start: November 15, 2024 End: November 15, 2024 Team Status: Inactive Member Role [...] Gita Azevedo MD Other Provider Active Start: 2023 End: January 25, 2024 Yaniv Natarajan MD [...] Active Ross Colmenares MD Attending Provider Active Box Sorter Relationship Specialty Start Date End Date Tom Morales MD [address] [place] [address] 2, [address] [id number] PCP - MSSP ACO Attributed Provider 01/11/23 Stefan Best MD [address] [place] [id number] PCP - General Family Medicine 09/17/23 Box Sorter Relationship Specialty Start Date End Date Tom Morales MD [address] [place] [address] 2, [address] [address] PCP - MSSP ACO Attributed Provider 01/11/23 Stefan Best MD [address] [place] [id number] PCP - General Family Medicine 09/17/23 Box Sorter Relationship Specialty Start Date End Date Tom Morales MD [address] [place] [address] 2, [facility] [address] [place] [address] PCP - MSSP ACO Attributed Provider 01/11/23 Stefan Best MD [address] [place] [id number] PCP - General Family Medicine 09/17/23 Box Sorter Relationship Specialty Start Date End Date Tom Morales MD [address] [place] [address] 2, [facility] [address] [place] [address] PCP - MSSP ACO Attributed Provider 01/11/23 Stefan Best MD [address] [place] [id number] PCP - General Family Medicine 09/17/23 Box Sorter Relationship Specialty Start Date End Date Tom Morales MD [address] [place] [address] 2, [facility] [address] [place] [address] PCP - MSSP ACO Attributed Provider 01/11/23 Stefan Best MD [address] [place] [id number] PCP - General Family Medicine 09/17/23 Team Status: Inactive Member Role Status Dates Da Lozano II, MD Attending Provider Active Start: August 13, 2023 End: August 13, 2023 Team Status: Inactive Member Role Status Dates Stefan Best MD Primary Care Provide , Attending Provider Active Start: September 09, 2023 [...] April 07, 2024 End: April 07, 2024 Box Sorter Relationship Specialty Start Date End Date Stefan Best MD PCP - General Family Medicine 09/17/23 Team Status: Active Member Role Status Dates Stefan Best MD Primary Care Provider Active Start: January 25, 2025 Da Lozano II, MD Attending Provider Active Start: January 25, 2025 Team Status: Inactive Member Role Status Dates Stefan Best MD Primary Care Provider Active Start: January 31, 2025 End: January 31, 2025 Stefan Best MD Attending Provider Active St art: January 31, 2025 End: January 31, 2025 Team Status: Active Member Role Status Celia Best MD Primary Care Provider Active Start: February 07, 2025 Leroy Ashby MD Attending Provider Active Start : February 07, 2025 Team Status: Inactive Member Role Status Dates Stefan Best MD Primary Care Provider Active Start: February 08, 2025 End: February 08, 2025 Leroy Ashby MD Attending Provider Active Start : February 08, 2025 End: February 08, 2025 Team Status: Inactive Member Role Status Celia Best MD Primary Care Provider Active Start: March 03, 2025 End: March 03, 2025 Da Lozano II, MD Attending Provider Active Start: March 03, 2025 End: March 03, 2025 Team Status: Inactive Member Role Status Dates Stefan Best MD Primary Care Provider Active Start: March 09, 2025 End: March 09, 2025 Da Lozano II, MD Attending Provider Active Start: March 09, 2025 End: March 09, 2025 Team Status: Active Member Role Status Dates Stefan Best MD Primary Care Provider Active Start: March 09, 2025 Da Lozano II, MD Attending Provider Active Start: March 09, 2025 Team Status: Inactive Member Role Status Dates Stefan Best MD Primary Care Provider Active Start: March 11, 2025 End: March 11, 2025 Da Lozano II, MD Attending Provider Active Start: March 11, 2025 End: March 11, 2025 Team Status: Active Member Role Status Dates Stefan Best MD Primary Care Provider Active Start: March 21, 2025 Da Lozano II, MD Attending Provider Active Start: March 21, 2025 Da Lozano II, MD Other Provider Active S tart: March 21, 2025 Lily Yanes RN Other Provider Active Star t: March 21, 2025 End: March 22, 2025 Jacinda Taylor RN Other Provider Active Start : March 21, 2025 End: March 22, 2025 Sherrie Yoder RN Other Provider Active Star t: March 21, 2025 End: March 22, 2025 Namrata Marshall , LIANE Other Provider Active Start: S nubia 2024 End: March 22, 2025 Selene Taylor RN Other Provider Active Start: Se ptember 2024 End: March 22, 2025 Kalyani Ferrari , LIANE Other Provider Active Start: S nubia 2024 End: March 22, 2025 Trace Alvarez MD Other Provider Active Start: March 21, 2025 End: March 22, 2025 Clayton De La Cruz DO Other Provider Active Start : March 21, 2025 End: March 22, 2025 Stewart Osorio MD Other Provider Active Start : March 21, 2025 End: March 22, 2025 Norberto Pires DO Other Provider Active Start: March 21, 2025 End: March 22, 2025 Mateo Schaeffer MD Other Provider Active Start: March 21, 2025 End: March 22, 2025 Maxine Ovalle MD Other Provider Active Start : March 21, 2025 End: March 22, 2025 David Maher DO Other Provider Active St art: March 21, 2025 End: March 22, 2025 Mason Rivera MD Other Provider Active Start: Lesli delacruz 2024 End: March 22, 2025 Vandana Urbina APRN Other Provider Active Start: March 21, 2025 End: March 22, 2025 Serina Ruff MD Other Provider Active Start: March 21, 2025 End: March 22, 2025 Nathan Gibson MD Other Provider Active Start: March 21, 2025 End: March 22, 2025 Los Ventura MD Other Provider Active Start: March 21, 2025 End: March 22, 2025 David Patel DO Other Provider Active Start: March 21, 2025 End: March 22, 2025 Jj Muniz MD Other Provider Active Start: 2024 End: March 22, 2025 Aldair Leija MD Other Provider Active Start: Mar End: March 22, 2025 KATHY MedranoC Other Provider Active St art: March 21, 2025 End: March 22, 2025 Crissy Smith APRN Other Provider Active Star t: March 21, 2025 End: March 22, 2025 Dany Schroeder MD Other Provider Active Start: March 21, 2025 End: March 22, 2025 Hernan Mai MD Other Provider Active Start: 2024 End: March 22, 2025 Markel Ledbetter MD Other Provider Active Star t: March 21, 2025 End: March 22, 2025 Chevy Espino DO Other Provider Active Start : March 21, 2025 End: March 22, 2025 Vy Ortiz APRN Other Provider Active Start: March 21, 2025 End: March 22, 2025 Juice Mackenzie DO Other Provider Active Start: March 21, 2025 End: March 22, 2025 Nikolai Melgoza MD Other Provider Active Sta rt: March 21, 2025 End: March 22, 2025 Goldie Braun APRN Other Provider Active Start : March 21, 2025 End: March 22, 2025 Jelena Inman APRN Other Provider Active St art: March 21, 2025 End: March 22, 2025 Katiana Barrera MD Other Provider Active Start: S eptember 2024 End: March 22, 2025 Jagjit Atkinson MD Other Provider Active S tart: March 21, 2025 End: March 22, 2025 Roberto Jaime DO Other Provider Active Start: March 21, 2025 End: March 22, 2025 Herman Bella MD Other Provider Active Start: March 21, 2025 End: March 22, 2025 Nithya Alvarado MD Other Provider Active Start: March End: March 22, 2025 Francisca Escudero APRN Other Provider Active Star t: March 21, 2025 End: March 22, 2025 Nishi Welsh MD Other Provider Active Start: S [id number] End: March 22, 2025 Earnest Noel MD Other Provider Active Start: March 21, 2025 End: March 22, 2025 Mason Flanagan MD Other Provider Active Start : March 21, 2025 End: March 22, 2025 Hill Marmolejo MD Other Provider Active Start: S [id number] End: March 22, 2025 Maryana Walker APRN Other Provider Active Sta rt: March 21, 2025 End: March 22, 2025 Susanne Rodriguez APRN Other Provider Active Start: March 21, 2025 End: March 22, 2025 Lexi South RN Other Provider Active Start: S eptember 2024 End: March 22, 2025 Team Status: Active Member Role Status Dates Stefan Best MD Primary Care Provider Active Start: March 21, 2025 Da Lozano II, MD Other Provider Active S tart: March 21, 2025 Earnest Ferrari MD Other Provider Active Start: S eptember 2024 Lily Yanes RN Other Provider Active Star t: March 21, 2025 Jacinda Taylor RN Other Provider Active Start : March 21, 2025 Sherrie Yoder RN Other Provider Active Star t: March 21, 2025 Namrata Marshall RN Other Provider Active Start: S epmber 2024 Selene Taylor RN Other Provider Active Start: 2024 Kalyani Ferrari RN Other Provider Active Start: eptember 2024 Trace Alvarez MD Other Provider Active Start: March 21, 2025 Clayton De La Cruz , Other Provider Active Start : March 21, 2025 Stewart Osorio MD Other Provider Active Start : March 21, 2025 Norberto Pires DO Other Provider Active Start: March 21, 2025 Mateo Schaeffer MD Other Provider Active Start: March 21, 2025 Maxine Ovalle MD Other Provider Active Start : March 21, 2025 David Maher DO Other Provider Active St art: March 21, 2025 Mason Rivera MD Other Provider Active Start: 2024 Vandana Urbina APRN Other Provider Active Start: March 21, 2025 Serina Ruff MD Other Provider Active Start: March 21, 2025 Nathan Gibson MD Other Provider Active Start: March 21, 2025 Los Ventura MD Other Provider Active Start: March 21, 2025 David Patel DO Other Provider Active Start: March 21, 2025 Jj Muniz MD Other Provider Active Start: 2024 Aldair Leija MD Other Provider Active Start: Mar Salud Cee NP-C Other Provider Active St art: March 21, 2025 Crissy Smith APRN Other Provider Active Star t: March 21, 2025 Dany Schroeder MD Other Provider Active Start: March 21, 2025 Hernan Mai MD Other Provider Active Start: 2024 Markel Ledbetter MD Other Provider Active Star t: March 21, 2025 Chevy Espino DO Other Provider Active Start : March 21, 2025 Vy Ortiz APRN Other Provider Active Start: March 21, 2025 Juice Mackenzie DO Other Provider Active Start: March 21, 2025 Nikolai Melgoza MD Other Provider Active Sta rt: March 21, 2025 Goldie Braun APRN Other Provider Active Start : March 21, 2025 Jelena Inman APRN Other Provider Active St art: March 21, 2025 Katiana Barrera MD Other Provider Active Start: S eptember 2024 Jagjit Atkinson MD Other Provider Active S tart: March 21, 2025 Roberto Jaime DO Other Provider Active Start: March 21, 2025 Herman Bella MD Other Provider Active Start: March 21, 2025 Nithya Alvarado MD Other Provider Active Start: March Francisca Escudero APRN Other Provider Active Star t: March 21, 2025 Nishi Welsh MD Other Provider Active Start: S eptember 2024 Earnest Noel MD Other Provider Active Start: March 21, 2025 Mason Flanagan MD Other Provider Active Start : March 21, 2025 Hill Marmolejo MD Other Provider Active Start: S eptember 2024 Maryana Walker APRN Other Provider Active Sta rt: March 21, 2025 Susanne Rodriguez APRN Other Provider Active Start: March 21, 2025 Lexi South RN Other Provider Active Start: S eptember 2024 Farhat Almeida MD Attending Provider Active Start: March 21, 2025 Team Status: Active Member Role Status Dates Stefan Best MD Primary Care Provider Active Start: March 22, 2025 Farhat Almeida MD Admit Provider Active Start: March 22, 2025 Farhat Almeida MD Other Provider Active Start: March 22, 2025 Lily Yanes , LIANE Other Provider Active Star t: March 22, 2025 Jacinda Taylor , LIANE Other Provider Active Start : March 22, 2025 Sherrie Yoder RN Other Provider Active Star t: March 22, 2025 Namrata Marshall RN Other Provider Active Start: S eptember 2024 Selene Taylor RN Other Provider Active Start: Se ptember 2024 Kalyani Ferrair RN Other Provider Active Start: S eptember 2024 Trace Alvarez MD Other Provider Active Start: March 22, 2025 Clayton De La Cruz , Other Provider Active Start : March 22, 2025 Stewart Osorio MD Other Provider Active Start : March 22, 2025 Norberto Pires DO Other Provider Active Start: March 22, 2025 Mateo Schaeffer MD Other Provider Active Start: March 22, 2025 Maxine Ovalle MD Other Provider Active Start : March 22, 2025 David Maher DO Other Provider Active St art: March 22, 2025 Mason Rivera MD Other Provider Active Start: S terezatembtyler 2024 Vandana Urbina APRN Other Provider Active Start: March 22, 2025 Serina Ruff MD Other Provider Active Start: March 22, 2025 Nathan Gibson MD Other Provider Active Start: March 22, 2025 Los Ventura MD Other Provider Active Start: March 22, 2025 David Patel DO Other Provider Active Start: March 22, 2025 Jj Muniz MD Other Provider Active Start: 2024 Aldair Leija MD Other Provider Active Start: Mar EWA Medrano Other Provider Active St art: March 22, 2025 Crissy Smith APRN Other Provider Active Star t: March 22, 2025 Dany Schroeder MD Other Provider Active Start: March 22, 2025 Hernan Mai MD Other Provider Active Start: 2024 Markel Ledbetter MD Other Provider Active Star t: March 22, 2025 Chevy Espino DO Other Provider Active Start : March 22, 2025 Vy Ortiz APRN Other Provider Active Start: March 22, 2025 Juice Mackenzie DO Other Provider Active Start: March 22, 2025 Nikolai Melgoza MD Other Provider Active Sta rt: March 22, 2025 Goldie Braun APRN Other Provider Active Start : March 22, 2025 Jelena Inman APRN Other Provider Active St art: March 22, 2025 Katiana Barrera MD Other Provider Active Start: S eptember 2024 Jagjit Atkinson MD Other Provider Active S tart: March 22, 2025 Roberto Jaime DO Other Provider Active Start: March 22, 2025 Herman Bella MD Other Provider Active Start: March 22, 2025 Nithya Alvarado MD Other Provider Active Start: March Francisca Escudero APRN Other Provider Active Star t: March 22, 2025 Nishi Welsh MD Other Provider Active Start: S eptember 2024 Earnest Noel MD Other Provider Active Start: March 22, 2025 Mason Flanagan MD Other Provider Active Start : March 22, 2025 Hill Marmolejo MD Other Provider Active Start: S eptember 2024 Maryana Walker APRN Other Provider Active Sta rt: March 22, 2025 Susanne Rodriguez APRN Other Provider Active Start: March 22, 2025 Lexi South RN Other Provider Active Start: S eptember 2024 Mindy De Jesus APRN Attending Provider Active Start: March 22, 2025 Team Status: Active Member Role Status Dates Stefan Best MD Primary Care Provider Active Start: March 29, 2025 Farhat Almeida MD Admit Provider Active Start: March 29, 2025 Farhat Almeida MD Attending Provider Active Start: March 29, 2025 Farhat Almeida MD Other Provider Active Start: March 29, 2025 Lily Yanes RN Other Provider Active Star t: March 29, 2025 Jacinda Taylor , LIANE Other Provider Active Start : March 29, 2025 Sherrie Yoder , LIANE Other Provider Active Star t: March 29, 2025 Namrata Marshall RN Other Provider Active Start: S eptember 2024 Selene Taylor RN Other Provider Active Start: Se ptember 2024 Kalyani Ferrari RN Other Provider Active Start: S eptember 2024 Trace Alvarez MD Other Provider Active Start: March 29, 2025 Clayton De La Cruz , Other Provider Active Start : March 29, 2025 Stewart Osorio MD Other Provider Active Start : March 29, 2025 Norberto Pires , Other Provider Active Start: March 29, 2025 Mateo Schaeffer MD Other Provider Active Start: March 29, 2025 Maxine Ovalle MD Other Provider Active Start : March 29, 2025 David Maher DO Other Provider Active St art: March 29, 2025 Mason Rivera MD Other Provider Active Start: S eptembtyler 2024 Vandana Urbina APRN Other Provider Active Start: March 29, 2025 Serina Ruff MD Other Provider Active Start: March 29, 2025 Nathan Gibson MD Other Provider Active Start: March 29, 2025 Los Ventura MD Other Provider Active Start: March 29, 2025 David Patel DO Other Provider Active Start: March 29, 2025 Jj Muniz MD Other Provider Active Start: pt2024 Aldair Leija MD Other Provider Active Start: Mar Salud Cee NP-C Other Provider Active St art: March 29, 2025 Crissy Smith APRN Other Provider Active Star t: March 29, 2025 Dany Schroeder MD Other Provider Active Start: March 29, 2025 Hernan Mai MD Other Provider Active Start: pt2024 Markel Ledbetter MD Other Provider Active Star t: March 29, 2025 Chevy Espino DO Other Provider Active Start : March 29, 2025 Vy Ortiz APRN Other Provider Active Start: March 29, 2025 Juice Mackenzie DO Other Provider Active Start: March 29, 2025 Nikolai Melgoza MD Other Provider Active Sta rt: March 29, 2025 Goldie Braun APRN Other Provider Active Start : March 29, 2025 Jelena Inman APRN Other Provider Active St art: March 29, 2025 Katiana Barrera MD Other Provider Active Start: S eptember 2024 Jagjit Atkinson MD Other Provider Active S tart: March 29, 2025 Roberto Jaime DO Other Provider Active Start: March 29, 2025 Herman Bella MD Other Provider Active Start: March 29, 2025 Nithya Alvarado MD Other Provider Active Start: March Francisca Escudero APRN Other Provider Active Star t: March 29, 2025 Nishi Welsh MD Other Provider Active Start: S eptember 2024 Earnest Noel MD Other Provider Active Start: March 29, 2025 Mason Flanagan MD Other Provider Active Start : March 29, 2025 Hill Marmolejo MD Other Provider Active Start[facility] Maryana Walker APRN Other Provider Active Sta rt: March 29, 2025 Susanne Rodirguez APRN Other Provider Active Start: March 29, 2025 Lexi South RN Other Provider Active Start: [facility] Team Status: Active Member Role Status Dates Stefan Best MD Primary Care Provider Active Start: April 04, 2025 Gardenia Casetllanos CMA Attending Provider Active Start: April 04, 2025 Team Status: Inactive Member Role Status Dates Stefan Best MD Primary Care Provider Active Start: April 06, 2025 End: April 06, 2025 Da Lozano II, MD Attending Provider Active Start: April 06, 2025 End: April 06, 2025 Goals (unrecognized section and content) Goals may [...] SPECT MULTIPLE STUDIES Tom Morales MD [address] [facility] [address], [address] [address] Referral ID Status Reason Start Date Expiration Date V isits Requested Visits Authorized [id number] Pending Review 09/17/2023 09/16/2024 5 5 Reason Comments Follow-up 8m Old [facility]PM patient Specialty Diagnoses / Procedures Referred By Contac t Referred To Contact Cardiology Diagnoses Occlusion and stenosis of right carotid artery Procedures Follow Up In Cardiology Tom Morales MD Smith, Donna K, [employer]IT[employer] [address] [facility] [address], [address] [address] Phone: tel: fax: Referral ID Status Reason Start Date Expiration Date V isits Requested Visits Authorized [id number] Authorized 09/17/2023 09/16/2024 1 1 FOR RECORDS [...] BE BASED ON THE PRIMARY CLINICAL RECORDS. [facility]. provides no warranty or guarantee of the accuracy or completeness of information in this document."
[2025-04-07 14:15] LABS: Hematocrit 33.8 % (36.0-48.0); Hemoglobin 10.0 g/dL (12.0-16.0); Immature Granulocytes Abs Auto 0.05 10^3/uL (0.00-0.03); Immature Granulocytes Pct Auto 0.5 % (0.0-0.5); Lymphocytes Absolute Auto 1.2 10^3/uL (1.2-3.8); Mean Corpuscular HGB Conc 29.6 g/dL (29.9-35.2); Mean Corpuscular Hemoglobin 32.3 pg (26.7-34.0); Platelet Count 225 10^3/uL (150-450); Red Blood Count 3.10 10^6/uL (4.20-5.40); White Blood Count 9.2 10^3/uL (4.0-11.0)
[2025-04-07 14:31] LABS: Mean Corpuscular Volume 109.0 fL (81.0-99.0)
[2025-04-07 14:35] LABS: Anion Gap 9.4; Blood Urea Nitrogen 34.0 mg/dL (7.0-18.0); Calcium 8.9 mg/dL (8.5-10.1); Carbon Dioxide 30.3 mmol/L (21.0-32.0); Chloride 101 mmol/L (98-107); Estimated GFR (African America 32 (>=60 mL/min/1.73m^2); Estimated GFR (Non-African Ame 26 (>=60 mL/min/1.73m^2); Glucose 211 mg/dL (74-106); Potassium 4.7 mmol/L (3.5-5.1); Sodium 136 mmol/L (136-145)
--- NOTE | 2025-04-07 14:50 | NM_ITS ---
The [address] [address] Patient Name: ESTHER TATUM MRN: [id number] date: 1945 Sex: F Assigned Patient Location: ER Current Patient Location: Accession/Order Number: [id number] Exam Date: 04/07/2025 05:30 Report Date: 04/07/2025 18:50 At the request of: KODI LUTZ MD Procedure: NM pul vent and perfuse VENTILATION/PERFUSION LUNG SCAN CLINICAL HISTORY: SOB, recent surgery COMPARISON: Chest x-ray 04/07/2025 Following the inhalation of 25.6 mCi of Tc 99m labeled DTPA, ventilatory views of the lungs were obtained in multiple projections. There is uniform distribution of radionuclide. There are no significant defects. Following the intravenous injection of 8.0 mCi Technetium 99m labeled MAA, perfusion images of the lungs were obtained in multiple projections. The distribution of radionuclide matches that of the ventilatory portion of the exam. There are no mismatched defects. NM/NM pul vent and perfuse IMPRESSION: Low probability of pulmonary embolism Impression dictated by: Dwayne Pearson M.D. 04/07/2025 6:50 PM Dictation Location: [place] [address] Electronically authenticated by: [id number] Y Date: 04/07/2025 18:50
--- NOTE | 2025-04-07 16:55 | XR_ITS ---
[place] [id number] Patient Name: ESTHER TATUM MRN: [id number] date: 1945 Sex: F Assigned Patient Location: ER Current Patient Location: ER Accession/Order Number: [id number] Exam Date: 04/07/2025 17:15 Report Date: 04/07/2025 17:38 At the request of: KODI LUTZ MD Procedure: XR chest 1V Single view chest INDICATION: Short of breath COMPARISON: 09/26/2024 FINDINGS: Sternotomy wires. Enlarged cardiomediastinal silhouette. Mild perihilar congestion. Interstitial edema and left. Small left-sided effusion. Minimal bibasilar atelectasis. No pneumothorax. XR/XR chest 1V IMPRESSION: Mild CHF findings Impression dictated by: Dwayne Pearson M.D. 04/07/2025 5:38 PM Dictation Location: [place] [address] Electronically authenticated by: [id number] Y Date: 04/07/2025 17:38
[2025-04-07 18:17] LABS: NT Pro B Type Natriuretic Pept 6616.0 pg/mL (<=1800.0)
[2025-04-07] MEDS: FUROSEMIDE 40 MG/4 ML VIAL IVP (18:46)
== END 2025-04-07 22:41 | disposition short-term general hospital (02) ==
PROVIDERS: Emergency Medicine; Emergency Provider Internal Medicine; PCP Family Medicine
DX: I50.9 Heart failure, unspecified (principal); I25.10 Atherosclerotic heart disease of native coronary artery without angina pectoris; R06.02 Shortness of breath; Z98.890 Other specified postprocedural states; Z87.891 Personal history of nicotine dependence
CPT/HCPCS: 36415; 71045; 78582; 80048; 83880; 84484; 85025; 93005; 96374; 99285; A9540; A9567; J1938

== ENCOUNTER 2025-04-11 09:06 | Inpatient (IN) | payer MEDICARE, SELFPAY ==
[2025-04-11] VITALS (26 sets, daily range): BP systolic 97–127; BP diastolic 47–65; PULSE 63–82; TEMP 36.4–37.1; O2SAT 85–95; BMI 33.3; BMI 35.5
--- OUTSIDE RECORDS SUMMARY | 2025-04-11 | XMS_ITS ---
Author Name Auto Generated Organization OHIP Support Name Relationship Address Phone Toi Walter Next of Kin [address] [place] [address], [place] [address] + Jameson Braun Next of Kin [address] [place] [address], [place] [address] + Walter Tatum Next of Kin [address] [place] [address], [place] [address] + Jameson Braun Next of Kin [address] [place] [address], [place] [address] + Walter Tatum Next of Kin [address] [place] [address], [place] [address] + Jameson Braun Next of Kin [address] [place] [address], [place] [address] + Walter Tatum Next of Kin [address] [place] [address], [place] [address] + Jameson Braun Next of Kin [address] [place] [address], [place] [address] + Walter Tatum Next of Kin [address] [place] [address], [place] [address] + Jameson Braun Next of Kin [address] [place] [address], [place] [address] + Walter Tatum Next of Kin [address] [place] [address], [place] [address] + Jameson Braun Next of Kin [address] [place] [address], [place] [address] + Walter Tatum Next of Kin [address] [place] [address], [place] [address] + Jameson Braun Next of Kin [address] [place] [address], [place] [address] + Ritenoannie, Walter Next of Kin [address] [facility] [place] [address] + KadeJameson Next of Kin [address] [place] [address], [place] [address] + Ritenoannie, Walter Next of Kin [address] [place] [address] + KadeJameson Next of Kin [address] [place] [address], [place] [address] + RETIRED Next of Kin Unknown Unavailable JAMESON BRAUN Next of Kin Unknown + RitenoWalter valencia Next of Kin [address] [place] [address] + Kade Jameson Next of Kin [address] [place] [address], [place] [address] + RitenoWalter valencia Next of Kin [address] [place] [address] + Kade Jameson Next of Kin [address] [place] [address], [place] [address] + RitenoWalter valencia Next of Kin [address] [facility] [place] [address] + KadeJameson Next of Kin [address] [place] [address], [place] [address] + RitenoWalter valencia Next of Kin [address] [place] [address] + Kade Jameson Next of Kin [address] [place] [address], [place] [address] + Ritenoannie, Walter Next of Kin [address] [place] [address] + KadeTreya Next of Kin Unknown + Ritenoannie, Walter Next of Kin [address] [place] [address] + Kade Jameson Next of Kin Unknown + RitenoWalter valencia Next of Kin [address] [place] [address] + Jameson Braun Next of Kin Unknown + Care Team Providers Care Digital Marketing Intern Name Role Phone Stefan Best Admitting Unavailable Stefan Best Attending Unavailable Best, Stefan E Primary Care Unavailable Mahnomen II, Da M Admitting Unavailabl e Best, Stefan E Primary Care Unavailable Mahnomen II, Da M Attending Unavailabl e Best, Stefan E Primary Care Unavailable Yaniv Natarajan Attending Unavailable Yaniv Natarajan Admitting Unavailable Best, Stefan E Primary Care Unavailable CookYaniv P Admitting Unavailable CookYaniv Attending Unavailable Valeriy Bestia E Primary Care Unavailable Mateo Schaeffer Attending Unavailable Janelle Crandall Consulting Unavailable Juice Mackenzie Admitting Unavailable Janelle Crandall Consulting Unavailable Montana Cobb Consulting Unavailable Charlotte Cordon Consulting Unavailable Farrah Franks Consulting Unavailable Angela Braun Consulting Unavailable Kandi Villeda Consulting Unavailable Elisa Walker Consulting Unavailable Earnest Ferrari Consulting Unavailable Blake II, Da Artis Attending Unavailabl e Best, Stefan E Primary Care Unavailable Mahnomen II, Da M Admitting UnavailLily Luong Consulting Unavailable Jacinda Taylor Consulting Unavailable Sherrie Yoder Consulting Unavailable Namrata Marshall Consulting Unavailable Selene Taylor Consulting Unavailable Kalyani Ferrari Consulting Unavailable Trace Alvarez Consulting Unavailable Clayton De La Cruz Consulting Unavailable Stewart Osorio Consulting Unavailable Norberto Pires Consulting UnavailMateo Chang Consulting Unavailable Maxine Ovalle Consulting Unavailable David Maher Consulting Unavailable Mason Rivera Consulting Unavailable Vandana Urbina Consulting UnavailSerina Griffith Consulting Unavailable Nathan Gibson Consulting Unavailable [place] Consulting Unavailable David Patel Consulting Unavailable Jj Muniz Consulting Unavailable Aldair Leija Consulting Unavailable Salud Cee Consulting Unavailable Crissy Smith Consulting Unavailable Dany Schroeder Consulting UnavailHernan Otto Consulting Unavailable Markel Ledbetter Consulting Unavailable Chevy Espino Consulting Unavailable Vy Ortiz Consulting Unavailable Juice Mackenzie Consulting Unavailable Nikolai Melgoza Consulting Unavailable Goldie Braun Consulting Unavailable Jelena Inman Consulting Unavailable Dior Barreraa Consulting Unavailable Jagjit Atkinson Consulting Unavailable Roberto Jaime Consulting Unavailable Herman Bella Consulting Unavailable Nithya Alvarado Consulting Unava ilLon Pereza Consulting Unavailable Blaise, Mohamad Consulting Unavailable Earnest Noel Consulting Unavailable Mason Flanagan Consulting Unavailable Hill Marmolejo Consulting Unavailable Maryana Walker Consulting Unavailable Bolzan-Sherry Nicooneil Consulting Unavaila Lexi Sloan Consulting Unavailable Stefan Best Primary Care Unavailable Farhat Almeida Attending UnavailLily Myers Consulting Unavailable Farhat Almeida Admitting UnavailJacinda Rivera Consulting Unavailable Sherrie Yoder Consulting Unavailable Namrata Marshall Consulting Unavailable Selene Taylor Consulting Unavailable Kalyani Ferrari Consulting Unavailable Trace Alvarez Consulting Unavailable Clayton De La Cruz Consulting Unavailable Stewart Osorio Consulting Unavailable Norberto Pires Consulting UnavailMateo Chang Consulting Unavailable Maxine Ovalle Consulting Unavailable David Maher Consulting Unavailable Mason Rivera Consulting Unavailable Vandana Urbina Consulting UnavailSerina Griffith Consulting Unavailable Nathan Gibson Consulting Unavailable [place] Consulting Unavailable David Patel Consulting Unavailable Jj Muniz Consulting Unavailable Aldair Leija Consulting Unavailable Salud Cee Consulting Unavailable Crissy Smith Consulting Unavailable Dany Schroeder Consulting UnavailHernan Otto Consulting Unavailable Kerry Ledbetteraledave Consulting Unavailable Chevy Espino Consulting Unavailable Vy Ortiz Consulting Unavailable Juice Mackenzie Consulting Unavailable Nikolai Melgoza Consulting Unavailable Goldie Braun Consulting Unavailable Jelena Inman Consulting Unavailable Bruce Alaa Consulting Unavailable Jagjit Atkinson Consulting Unavailable Roberto Jaime Consulting Unavailable Herman Bella Consulting Unavailable Nithya Alvarado Consulting Unava ilable Borisov, Francisca Consulting Unavailable BlaiseNishi Consulting Unavailable SadieEarnest desai Consulting Unavailable Chatthuy, Mason S Consulting Unavailable Marmolejo, Hill Consulting Unavailable Maryana Walker Consulting Unavailable Bolzan-Sherry, Susanne Consulting Unavaila Lexi Sloan Consulting Unavailable Best, Stefan E Primary Care Unavailable Yaniv Natarajan Admitting Unavailable Delgado, Yaniv Vela Attending Unavailable Mahn[place] II, Da Artis Admitting Unavailabl e Best, Stefan E Primary Care Unavailable Blake II, Da Artis Attending Unavailabl e AdolfoIsiah Attending Unavailable Best, Stefan E Primary Care Unavailable Isiah Mata Admitting Unavailable Blake II, Da Artis Admitting Unavailabl e Best, Stefan E Primary Care Unavailable Mahnomen II, Da Artis Attending Unavailabl e Best, Stefan E Admitting Unavailable Best, Stefan E Attending Unavailable Best, Stefan E Primary Care Unavailable Best, Stefan E Primary Care Unavailable Mahn[place] II, Da Artis Admitting Unavailabl e Blake II, Da Artis Attending Unavailabl e Best, Stefan E Primary Care Unavailable Best, Stefan E Admitting Unavailable Best, Stefan E Attending Unavailable [place] II, Da Artis Admitting Unavailabl e Best, Stefan E Primary Care Unavailable [place] II, Da Artis Attending Unavailabl e Best, Stefan E Primary Care Unavailable Blake II, Da Artis Attending Unavailabl e Mahnomen II, Da Artis Admitting Unavailabl e COOKYaniv Attending Unavailable DELGADO, Yaniv Vela Attending Unavailable DELGADO, Yaniv Vela Attending Unavailable Yaniv NATARAJAN P Attending Unavailable Yaniv NATARAJAN P Attending Unavailable ANGELA BRAUN Attending Unavailable SHAHRZAD RUANO Referring Unavailable BEST, STEFAN E Primary Care Unavailable PROBLEMS DATE TYPE CONDITION / CODE ATTENDING STATUS [facility] 04/07/2025 Unknown Heart failure, unspecified / I50.9(ICD-10) [facility] 04/07/2025 Unknown Chronic kidney d isease, unspecified / N18.9(ICD-10) [facility] 04/07/2025 Unknown Gout, unspecifie d / M10.9(ICD-10) [facility] 04/07/2025 Unknown Type 2 diabetes mellitus with diabetic chronic kidney disease / E11.22(ICD-10) [facility] 04/07/2025 Unknown Ischemic cardiom yopathy / I25.5(ICD-10) [facility] 04/07/2025 Unknown Atherosclerotic heart disease of [place] coronary artery without angina pectoris / I25.10(ICD-10) [facility] 04/07/2025 Unknown Hyperglycemia, unspecified / R73.9(ICD-10) [facility] 04/07/2025 Unknown Adverse effect o f glucocorticoids and synthetic analogues, initial encounter / T38.0X5A(ICD-10) [facility] 03/22/2025 Unknown Acute on chronic systolic (congestive) heart failure / I50.23(ICD-10) Farhat Almeida [facility] 03/22/2025 Unknown Peripheral vascu lar disease, unspecified / I73.9(ICD-10) Farhat Almeida [facility] 03/22/2025 Unknown Type 2 diabetes mellitus with hyperglycemia / E11.65(ICD-10) Farhat Almeida [facility] 03/22/2025 Unknown termite helper (curre nt) use of insulin / Z79.4(ICD-10) Farhat Almeida [facility] 03/22/2025 Unknown Other reduced mo bility / Z74.09(ICD-10) Farhat Almeida [facility] 03/22/2025 Unknown Chronic kidney d isease, stage 4 (severe) / N18.4(ICD-10) Farhat Almeida [facility] 03/21/2025 Unknown Unilateral prima ry osteoarthritis, left hip / M16.12(ICD-10) Da Lozano II [facility] 03/21/2025 Unknown Presence of left artificial hip joint / Z96.642(ICD-10) Da Lozano II [facility] 03/21/2025 Unknown Morbid (severe) obesity due to excess calories / E66.01(ICD-10) Mahn[place] II, [facility] 03/21/2025 Unknown Weakness / R53.1(ICD-10) Malachi topete II, [facility] 03/21/2025 Unknown Chronic systolic (congestive) heart failure / I50.22(ICD-10) Blake [facility] 03/21/2025 Unknown Essential (prima ry) hypertension / I10(ICD-10) Blake , [facility] 03/21/2025 Unknown Hyperlipidemia, unspecified / E78.5(ICD-10) Blake [facility] 03/09/2025 Unknown Encounter for ot her preprocedural examination / Z01.818(ICD-10) Blake [facility] 03/09/2025 Unknown Pain in left hip / M25.552(ICD-10) Blake MIMA [facility] 11/15/2024 Unknown Urinary tract in fection, site not specified / N39.0(ICD-10) Stefan Best [facility] 11/15/2024 Unknown Bacterial infect ion, unspecified / A49.9(ICD-10) Stefan Best [facility] 08/11/2024 Admitting Diagnosis Other specified symptoms and signs involving the circulatory and respiratory systems / R09.89(ICD-10) [facility] 08/11/2024 Admitting Diagnosis Chronic kidney disease, stage 3b (Multi) / N18.32(ICD-10) [facility] 08/11/2024 Admitting Diagnosis Body mass index (BMI) 33.0-33.9, adult / Z68.33(ICD-10) [facility] 07/08/2023 Admitting Diagnosis Atherosclerotic heart disease of [place] coronary artery without angina pectoris / I25.10(ICD-10) [facility] 07/08/2023 Admitting Diagnosis Ischemic cardiomyopathy / I25.5(ICD-10) [facility] 07/08/2023 Admitting Diagnosis Essential (primary) hypertension / I10(ICD-10) [facility] 07/08/2023 Admitting Diagnosis Mixed hyperlipidemia / E78.2(ICD-10) [facility] 07/08/2023 Admitting Diagnosis Type 2 diabetes mellitus without complications (Multi) / E11.9(ICD-10) [facility] 07/08/2023 Admitting Diagnosis termite helper (current) use of insulin (Multi) / Z79.4(ICD-10) [facility] 07/08/2023 Admitting Diagnosis Peripheral vascular disease, unspecified ([facility]) / I73.9(ICD-10) [facility] 08/11/2024 Admitting Diagnosis Occlusion and stenosis of right carotid artery / I65.21(ICD-10) [facility] 06/28/2024 Unknown Secondary hyperparathyroidism of renal origin / N25.81(ICD-10) Blake GUILLERMO [facility] 06/28/2024 Unknown 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 / D63.1(ICD-10) Blake [facility] 06/28/2024 Unknown Hypertensive chr onic kidney disease with stage 1 through stage 4 chronic kidney disease, or unspecified chronic kidney disease / I12.9(ICD-10) Blake GUILLERMO [facility] 06/24/2024 Unknown Encounter for preprocedural laboratory examination / Z01.812(ICD-10) Blake GUILLERMO [facility] 2024 Unknown Hydronephrosis w ith ureteral stricture, not elsewhere classified / N13.1(ICD-10) Yaniv Natarajan [facility] 05/25/2024 Unknown Acute pyelonephr itis / N10(ICD-10) Stefan Best [facility] PROCEDURES No Procedure Records Found RESULTS GLUCOSE POCT GLUCOMETERS Collected: 04/09/2025 11:15 AM Status: F Source: [facility] TYPE CODE TESTS RESULT OUT OF RANGE REFERENCE UNITS LAB GLUPOC Glucose Poc Glucometers 238 mg/dL Result Comment: Random Gluco se Reference Range is dependent on time and content of last meal. Glucose of more than 200 mg/dL in a nonstressed, ambulatory subject supports the diagnosis of Diabetes Mellitus. PERFORMED BY: [address] [place] [address] PATHOLOGIST TUBE WINDER HAND ALINA PADILLA M.D. Performed By: #### GLULS ### # Point of Care testing , GLUCOSE POCT GLUCOMETERS Collected: 04/09/2025 6:47 A M Status: F Source: [facility] TYPE CODE TESTS RESULT OUT OF RANGE REFERENCE UNITS LAB GLUPOC Glucose Poc Glucometers 169 mg/dL Result Comment: Random Gluco se Reference Range is dependent on time and content of last meal. Glucose of more than 200 mg/dL in a nonstressed, ambulatory subject supports the diagnosis of Diabetes Mellitus. PERFORMED BY: [address] [place] [address] PATHOLOGIST TUBE WINDER HAND ALINA PADILLA M.D. Performed By: #### GLULS ### # Point of Care testing , GLUCOSE POCT GLUCOMETERS Collected: 04/09/2025 5:39 A M Status: F Source: [facility] TYPE CODE TESTS RESULT OUT OF RANGE REFERENCE UNITS LAB GLUPOC Glucose Poc Glucometers 192 mg/dL Result Comment: Random Gluco se Reference Range is dependent on time and content of last meal. Glucose of more than 200 mg/dL in a nonstressed, ambulatory subject supports the diagnosis of Diabetes Mellitus. PERFORMED BY: [address] [place] [address] PATHOLOGIST TUBE WINDER HAND ALINA PADILLA M.D. Performed By: #### GLULS ### # Point of Care testing , GLUCOSE POCT GLUCOMETERS Collected: 04/08/2025 8:24 P M Status: F Source: [facility] TYPE CODE TESTS RESULT OUT OF RANGE REFERENCE UNITS LAB GLUPOC Glucose Poc Glucometers 213 mg/dL Result Comment: Random Gluco se Reference Range is dependent on time and content of last meal. Glucose of more than 200 mg/dL in a nonstressed, ambulatory subject supports the diagnosis of Diabetes Mellitus. PERFORMED BY: [address] [place] [address] PATHOLOGIST TUBE WINDER HAND ALINA PADILLA M.D. Performed By: #### GLULS ### # Point of Care testing , GLUCOSE POCT GLUCOMETERS Collected: 04/08/2025 5:18 P M Status: F Source: [facility] TYPE CODE TESTS RESULT OUT OF RANGE REFERENCE UNITS LAB GLUPOC Glucose Poc Glucometers 129 mg/dL Result Comment: Random Gluco se Reference Range is dependent on time and content of last meal. Glucose of more than 200 mg/dL in a nonstressed, ambulatory subject supports the diagnosis of Diabetes Mellitus. PERFORMED BY: [address] [address] PATHOLOGIST TUBE WINDER HAND ALINA PADILLA M.D. Performed By: #### GLULS ### # Point of Care testing , ECH ECHO TRANSTHORACIC Observed: 025 2:31 PM Status: COMPLETED Source: [facility] Main [address] [address] Echocardiogram Signed Patient: Lexi Tatum MR#: [id number] : 1945 Acct:[id number] Age/Sex: 79 / F ADM Date: 04/07/25 Loc: Room: [address] [place] [address] Type: ADM IN Attending Dr: Mateo Schaeffer MD Ordering Provider: Juice Mackenzie DO Date of Service: 04/08/25 ECH/ECH echo transthoracic: CHF Copies to: MD Juice Myles DO Lexi Baez PM Patient Location: : 1945 Gender: Female (MM/DD/YYYY) Age: 79 Years Ordering Physician: Juice Mackenzie Height: 59 in Weight: 174.165 lb Performed By: Darek Toledo RDCS, T BSA: 1.74 m2 BP: 140 / 70 mmHg HR: 76 bpm Reason For Study: CHF History: ICM CAD CHF MO RI HTN HLD PAD DM + + Interpretation Summary Ejection Fraction = 55-60%. Severe concentric left ventricular hypertrophy. No regional wall motion abnormalities noted. Mitral valve annulus tissue Doppler imaging is consistent with elevated left atrial pressure. The left atrium appears mildly dilated. There is mild mitral regurgitation. Compared to prior study, changes are noted. LVEF has improved. Procedure/Quality: A two-dimensional transthoracic echocardiogram with color flow, Doppler and injection of contrast agent Definity was performed. The study was technically good in quality. Left Ventricle: The left ventricular size is normal. Severe concentric left ventricular hypertrophy. Ejection Fraction = 55-60%. Mitral valve annulus tissue Doppler imaging is consistent with elevated left atrial pressure. No regional wall motion abnormalities noted. Left Atrium: The left atrium appears mildly dilated. Right Atrium: The right atrium appears normal in size. Right Ventricle: The right ventricle is normal in size and function. Aortic Valve: The aortic valve is mildly calcified. No hemodynamically significant valvular aortic stenosis. No aortic regurgitation is present. Mitral Valve: The mitral valve is normal in structure. No significant mitral valve stenosis. There is mild mitral regurgitation. Tricuspid Valve: The tricuspid valve is normal in structure. No tricuspid regurgitation. Pulmonic Valve: The pulmonic valve is not well visualized. No significant pulmonic regurgitation. Arteries: The aortic root is normal size. Pericardium/Pleura: No pericardial effusion seen. IVC/Hepatic Veins: The inferior vena cava is normal in size, with a normal collapsibility index. MMode/2D Measurements Calculations IVSd (0.7-1.1 cm): 1.70 cm LVIDd (3.7-5.4 cm): 3.9 cm LVPWd (0.7-1.1 cm): 1.70 cm LVIDs (2.3-3.6 cm): 2.9 cm LA dimension (2.3-4.0 cm): 4.7 LVOT diam: 1.90 cm cm FS: 25.6 % LVOT area: 2.8 cm2 EDV(Teich): 65.9 ml Ao root area: 5.3 cm2 ESV(Teich): 32.2 ml Ao root diam (2.0-3.2 cm): 2.6 cm EF(Teich): 51.1 % asc Aorta Diam: 2.6 cm LA A2 area: 17.2 cm2 LA A4 area: 19.1 cm2 LA length (vol): 5.3 cm LA vol: 52.9 ml LA vol index: 30.4 ml/m2 Doppler Measurements Calculations E/E' med: 45.2 Ao V2 max: 141.0 cm/sec E/E' lat: 21.2 Ao max P.0 mmHg MV E max jelena: 174.0 cm/sec Ao mean P.0 mmHg MV A max jelena: 154.0 cm/sec Ao V2 mean: 94.1 cm/sec MV E/A: 1.13 Ao V2 VTI: 32.0 cm MAGDA(I,D): 1.78 cm2 MAGDA(V,D): 1.64 cm2 MV V2 VTI: 45.5 cm MV mean P.0 mmHg MV V2 mean: 84.0 cm/sec MV dec time: 0.17 sec TV max P.0 mmHg LV V1 max: 81.7 cm/sec TR max jelena: 137.0 cm/sec LV V1 max P.7 mmHg TR max P.5 mmHg LV V1 mean: 55.2 cm/sec RAP systole: 8.0 mmHg LV V1 mean P.00 mmHg RVSP(TR): 15.5 mmHg LV V1 VTI: 20.1 cm + + + + + : Electronically : : : : signed by: Daniel : : Pablo : : : : Perla : : : : on: 04/08/2025, : : : : 7:39 PM : + + + Tech Comments No previous echo. Transcribed By: LARA Performed At: 04/08/25 1431 Signed By: Daniel Duncan MD 04/08/25 1939 GLUCOSE POCT GLUCOMETERS Collected: 04/08/2025 11:54 AM Status: F Source: [facility] TYPE CODE TESTS RESULT OUT OF RANGE REFERENCE UNITS LAB GLUPOC Glucose Poc Glucometers 305 mg/dL Result Comment: Random Gluco se Reference Range is dependent on time and content of last meal. Glucose of more than 200 mg/dL in a nonstressed, ambulatory subject supports the diagnosis of Diabetes Mellitus. PERFORMED BY: [facility] [address] [place] [address] PATHOLOGIST TUBE WINDER HAND ALINA PADILLA M.D. Performed By: #### GLULS ### # Point of Care testing , GLUCOSE POCT GLUCOMETERS Collected: 04/08/2025 6:40 A M Status: F Source: [facility] TYPE CODE TESTS RESULT OUT OF RANGE REFERENCE UNITS LAB GLUPOC Glucose Poc Glucometers 163 mg/dL Result Comment: Random Gluco se Reference Range is dependent on time and content of last meal. Glucose of more than 200 mg/dL in a nonstressed, ambulatory subject supports the diagnosis of Diabetes Mellitus. PERFORMED BY: [facility] [address] [place] [address] PATHOLOGIST TUBE WINDER HAND ALINA PADILLA M.D. Performed By: #### GLULS ### # Point of Care testing , COMPLETE BLOOD COUNT AUTO DIFF Collected: 04/08/2025 6:04 AM Status: F Source: F [facility] TYPE CODE TESTS RESULT OUT OF RANGE REFERENCE UNITS LAB WBC White Blood Count 7.1 Normal 3.8-11.6 [CFU]/mL LAB UNWBC Uncorrected WBC 7.1 Normal 3.8-11.6 10*3/uL LAB RBC Red Blood Count 2.99 Low 3.60-5.00 10*6/u L LAB HGB Hemoglobin 9.9 Low 11.8-15.4 g/dL LAB HCT Hematocrit 30.9 Low 34.0-46.4 % LAB MCV Mean Corpuscular Volume 103.5 High 80-100 fL LAB MCH Mean Corpuscular Hemoglobin 33.1 Normal 24.7-34.3 pg LAB MCHC Mean Corpuscular HGB Conc 32.0 Normal 32.0-35.0 g/dL LAB RDW Red Cell Distribution Width 18.3 High 11.9-15.3 % LAB PLT Platelet Count 214 Normal 150-450 10*3/uL LAB MPV Mean Platelet Volume 8.7 Normal 6.3-10.7 fL LAB NE% Neutrophils % (Auto) 69.6 . % LAB LY% Lymphocytes % (Auto) 17.6 . % LAB MO% Monocytes % (Auto) 9.5 . % LAB EO% Eosinophils % (Auto) 2.6 . % LAB BA% Basophils % (Auto) 0.7 . % LAB NRBC% NRBC% 0.2 Normal 0-0.5 /100{WBC} LAB NE# Neutrophils # (Auto) 4.9 Normal 1.8-7.7 10*3/uL LAB LY# Lymphocytes # (Auto) 1.2 Normal 1.00-4.8 10*3/uL LAB MO# Monocytes # (Auto) 0.7 Normal 0.0-0.8 10*3/uL LAB EO# Eosinophils # (Auto) 0.2 Normal 0.0-0.45 10*3/uL LAB BA# Basophils # (Auto) 0.0 Normal 0.0-0.2 10*3/uL Result Comment: PERFORMED BY : [place] [address] PATHOLOGIST TUBE WINDER HAND ALINA PADILLA M.D. Performed By: #### LIPID, A1 C WTH eA, HS TROP, BMP, CBC, MG #### [address] BASIC METABOLIC PANEL Collected: 04/08/2025 6:04 AM Status: F Source: [facility] TYPE CODE TESTS RESULT OUT OF RANGE REFERENCE UNITS LAB GLU Glucose 144 High 70-100 mg/dL Result Comment: Random Gluco se Reference Range is dependent on time and content of last meal. Glucose of more than 200 mg/dL in a nonstressed, ambulatory subject supports the diagnosis of Diabetes Mellitus. ADA recommended reference range LAB BUN Blood Urea Nitrogen 30 High 7-25 mg/dL LAB CREATT Creatinine 1.64 High 0.60-1.20 mg/dL LAB GFReNR Estimated GFR 31.652 LAB NA Sodium 139 Normal 136-145 mmol/L LAB K Potassium 3.9 Normal 3.5-5.1 mmol/L LAB CL Chloride 101 Normal 98-107 mmol/L LAB CO2 Carbon Dioxide 33.2 High 21.0-31.0 mmol/L LAB GAP Anion Gap 8.7 Normal 6.0-15.0 LAB CA Calcium 8.8 Normal 8.6-10.3 mg/dL LAB CRCLPHA Creatinine Clr Calc Pharmacy 25.86 Performed By: #### LIPID, A1 C WTH eA, HS TROP, BMP, CBC, MG #### [facility] [address] MAGNESIUM Collected: 6:04 AM Status: F Source: [facility] TYPE CODE TESTS RESULT OUT OF RANGE REFERENCE UNITS LAB MG Magnesium 2.0 Normal 1.9-2.7 mg/dL Performed By: #### LIPID, A1 C WTH eA, HS TROP, BMP, CBC, MG #### [facility] [address] [place] [id number] [facility] LIPID PANEL Collected: 04/08/2025 6:04 AM Status: F Source: [facility] TYPE CODE TESTS RESULT OUT OF RANGE REFERENCE UNITS LAB CHOL Cholesterol 126 Low 140-200 mg/dL Result Comment: Chol less th an 200 mg/dl low risk Chol 201-239 mg/dl borderline risk Chol 240 mg/dl and greater high risk LAB HDL HDL Cholesterol 34 Normal 23-92 mg/dL Result Comment: HDL CHOL ATP -III CLASSIFICATION Cardiovascular Risk HDL > or equal to 60 mg/dL LOW HDL < 40 mg/dL HIGH LAB TRIG W REF Triglyceride w/Reflex 190 High 0-149 mg/dL Result Comment: TRIG ATP III CLASSIFICATION TRIG less than 150 mg/dL Normal TRIG 150-199 mg/dL Borderline high TRIG 200-500 mg/dL High TRIG greater than 500 mg/dL Very high Standard traceable to the Center for Disease Conrtrol and Prevention (CDC) test method. LAB LDLC LDL Cholesterol,Calc ulated 54 Normal 0-100 mg/dL Result Comment: LDL ATP III CLASSIFICATION LDL less than 100 mg/dL Optimal LDL 100-129 mg/dL Near or above optimal LDL 130-159 mg/dL Borderline high LDL 160-189 mg/dL High LDL greater than 189 mg/dL Very high LAB VLDL VLDL CHOLESTEROL 38 mg/dL LAB CHLHDL Chol/HDL Ratio 3.7 <5.0 Result Comment: PERFORMED BY : [address] [address] PATHOLOGIST [employer] ALINA PADILLA M.D. Performed By: #### LIPID, A1 C WTH eA, HS TROP, BMP, CBC, MG #### [facility] [address] [place] [address] [facility] TROPONIN I HIGH SENSITIVITY Collected: 04/08/2025 6:0 4 AM Status: F Source: [facility] TYPE CODE TESTS RESULT OUT OF RANGE REFERENCE UNITS LAB HS TROP Troponin I High Sensitivity 48 High 0-15 Result Comment: The Troponin units of report have been changed to meet the Chest Pain Accreditation requirement, element EC5.M1l2. Troponin units are changed from pg/ml to ng/L. Also, the decimal is removed and results are in whole numbers. PERFORMED BY: [address] [address] PATHOLOGIST [employer] ALINA PADILLA M.D. Performed By: #### LIPID, A1 C WTH eA, HS TROP, BMP, CBC, MG #### [facility] [address] [place] [address] [place] A1C WITH ESTIMATED AVERAGE GLU Collected: 04/08/2025 6:04 AM Status: F Source: [facility] TYPE CODE TESTS RESULT OUT OF RANGE REFERENCE UNITS LAB .A1C Hemoglobin A1C 6.9 High 4.3-5.6 % Result Comment: Increased ri sk for diabetes: 5.7 - 6.4 diabetes: >6.4 glycemic control for adults with diabetes: <7.0 LAB eAG Estimated Average Glucose 151 mg/dL Result Comment: PERFORMED BY : [address] [address] PATHOLOGIST [employer] ALINA PADILLA M.D. Performed By: #### LIPID, A1 C WTH eA, HS TROP, BMP, CBC, MG #### [place] [id number] [facility] TROPONIN I HIGH SENSITIVITY Collected: 04/08/2025 12:30 AM Status: F Source: [facility] TYPE CODE TESTS RESULT OUT OF RANGE REFERENCE UNITS LAB HS TROP Troponin I High Sensitivity 61 High Off Scale 0-15 Result Comment: Critical Res ult : Called to and read back by: LI LAWRENCE at: 04/08/2025 01:19:37 by:[id number] The Troponin units of report have been changed to meet the Chest Pain Accreditation requirement, element EC5.M1l2. Troponin units are changed from pg/ml to ng/L. Also, the decimal is removed and results are in whole numbers. PERFORMED BY: [place] [phone] PATHOLOGIST [employer] ALINA PADILLA M.D. Performed By: #### HS TROP # ### [place] [id number] [facility] GLUCOSE POCT GLUCOMETERS Collected: 04/08/2025 12:03 AM Status: F Source: [facility] TYPE CODE TESTS RESULT OUT OF RANGE REFERENCE UNITS LAB GLUPOC Glucose Poc Glucometers 109 mg/dL Result Comment: Random Gluco se Reference Range is dependent on time and content of last meal. Glucose of more than 200 mg/dL in a nonstressed, ambulatory subject supports the diagnosis of Diabetes Mellitus. PERFORMED BY: [place] [address] PATHOLOGIST [employer] ALINA PADILLA M.D. Performed By: #### GLULS ### # Point of Care testing , GLUCOSE POCT GLUCOMETERS Collected: 04/04/2025 6:10 A M Status: F Source: [facility] TYPE CODE TESTS RESULT OUT OF RANGE REFERENCE UNITS LAB GLUPOC Glucose Poc Glucometers 155 mg/dL Result Comment: Random Gluco se Reference Range is dependent on time and content of last meal. Glucose of more than 200 mg/dL in a nonstressed, ambulatory subject supports the diagnosis of Diabetes Mellitus. PERFORMED BY: [address] [address] PATHOLOGIST [employer] ALINA PADILLA M.D. Performed By: #### GLULS ### # Point of Care testing , GLUCOSE POCT GLUCOMETERS Collected: 04/04/2025 2:09 A M Status: F Source: [facility] TYPE CODE TESTS RESULT OUT OF RANGE REFERENCE UNITS LAB GLUPOC Glucose Poc Glucometers 166 mg/dL Result Comment: Random Gluco se Reference Range is dependent on time and content of last meal. Glucose of more than 200 mg/dL in a nonstressed, ambulatory subject supports the diagnosis of Diabetes Mellitus. PERFORMED BY: [address] [address] PATHOLOGIST [employer] ALINA PADILLA M.D. Performed By: #### GLULS ### # Point of Care testing , GLUCOSE POCT GLUCOMETERS Collected: 04/03/2025 11:09 PM Status: F Source: [facility] TYPE CODE TESTS RESULT OUT OF RANGE REFERENCE UNITS LAB GLUPOC Glucose Poc Glucometers 141 mg/dL Result Comment: Random Gluco se Reference Range is dependent on time and content of last meal. Glucose of more than 200 mg/dL in a nonstressed, ambulatory subject supports the diagnosis of Diabetes Mellitus. PERFORMED BY: [address] [address] PATHOLOGIST [employer] ALINA PADILLA M.D. Performed By: #### GLULS ### # Point of Care testing , GLUCOSE POCT GLUCOMETERS Collected: 04/03/2025 7:50 P M Status: F Source: [facility] TYPE CODE TESTS RESULT OUT OF RANGE REFERENCE UNITS LAB GLUPOC Glucose Poc Glucometers 187 mg/dL Result Comment: Random Gluco se Reference Range is dependent on time and content of last meal. Glucose of more than 200 mg/dL in a nonstressed, ambulatory subject supports the diagnosis of Diabetes Mellitus. PERFORMED BY: [address] [address] PATHOLOGIST [employer] ALINA PADILLA M.D. Performed By: #### GLULS ### # Point of Care testing , GLUCOSE POCT GLUCOMETERS Collected: 04/03/2025 4:27 P M Status: F Source: [facility] TYPE CODE TESTS RESULT OUT OF RANGE REFERENCE UNITS LAB GLUPOC Glucose Poc Glucometers 332 mg/dL Result Comment: Random Gluco se Reference Range is dependent on time and content of last meal. Glucose of more than 200 mg/dL in a nonstressed, ambulatory subject supports the diagnosis of Diabetes Mellitus. LAB COMM1 Commemt1 Glu2: Cleaned Meter Result Comment: PERFORMED BY : [place] [id number] PATHOLOGIST [employer] ALINA PADILLA M.D. Performed By: #### GLULS ### # Point of Care testing , GLUCOSE POCT GLUCOMETERS Collected: 04/03/2025 11:52 AM Status: F Source: [facility] TYPE CODE TESTS RESULT OUT OF RANGE REFERENCE UNITS LAB GLUPOC Glucose Poc Glucometers 191 mg/dL Result Comment: Random Gluco se Reference Range is dependent on time and content of last meal. Glucose of more than 200 mg/dL in a nonstressed, ambulatory subject supports the diagnosis of Diabetes Mellitus. LAB COMM1 Commemt1 Glu2: Cleaned Meter Result Comment: PERFORMED BY : [place] [id number] PATHOLOGIST [employer] ALINA PADILLA M.D. Performed By: #### GLULS ### # Point of Care testing , GLUCOSE POCT GLUCOMETERS Collected: 04/03/2025 5:42 A M Status: F Source: [facility] TYPE CODE TESTS RESULT OUT OF RANGE REFERENCE UNITS LAB GLUPOC Glucose Poc Glucometers 81 mg/dL Result Comment: Random Gluco se Reference Range is dependent on time and content of last meal. Glucose of more than 200 mg/dL in a nonstressed, ambulatory subject supports the diagnosis of Diabetes Mellitus. LAB COMM1 Commemt1 Glu2: Cleaned Meter Result Comment: PERFORMED BY : [address] [address] PATHOLOGIST T[employer] ALINA PADILLA M.D. Performed By: #### GLULS ### # Point of Care testing , GLUCOSE POCT GLUCOMETERS Collected: 04/03/2025 5:28 A M Status: F Source: [facility] TYPE CODE TESTS RESULT OUT OF RANGE REFERENCE UNITS LAB GLUPOC Glucose Poc Glucometers 67 mg/dL Result Comment: Random Gluco se Reference Range is dependent on time and content of last meal. Glucose of more than 200 mg/dL in a nonstressed, ambulatory subject supports the diagnosis of Diabetes Mellitus. PERFORMED BY: [address] [place] [place] [address] PATHOLOGIST [employer] ALINA PADILLA M.D. Performed By: #### GLULS ### # Point of Care testing , GLUCOSE POCT GLUCOMETERS Collected: 04/03/2025 5:10 A M Status: F Source: [facility] TYPE CODE TESTS RESULT OUT OF RANGE REFERENCE UNITS LAB GLUPOC Glucose Poc Glucometers 61 mg/dL Result Comment: Random Gluco se Reference Range is dependent on time and content of last meal. Glucose of more than 200 mg/dL in a nonstressed, ambulatory subject supports the diagnosis of Diabetes Mellitus. LAB COMM1 Commemt1 Glu2: Cleaned Meter Result Comment: PERFORMED BY : [address] [address] PATHOLOGIST T[employer] ALINA PADILLA M.D. Performed By: #### GLULS ### # Point of Care testing , GLUCOSE POCT GLUCOMETERS Collected: 04/02/2025 8:33 P M Status: F Source: [facility] TYPE CODE TESTS RESULT OUT OF RANGE REFERENCE UNITS LAB GLUPOC Glucose Poc Glucometers 105 mg/dL Result Comment: Random Gluco se Reference Range is dependent on time and content of last meal. Glucose of more than 200 mg/dL in a nonstressed, ambulatory subject supports the diagnosis of Diabetes Mellitus. PERFORMED BY: [address] [place] [address] PATHOLOGIST [employer] ALINA PADILLA M.D. Performed By: #### GLULS ### # Point of Care testing , GLUCOSE POCT GLUCOMETERS Collected: 04/02/2025 4:26 P M Status: F Source: [facility] TYPE CODE TESTS RESULT OUT OF RANGE REFERENCE UNITS LAB GLUPOC Glucose Poc Glucometers 175 mg/dL Result Comment: Random Gluco se Reference Range is dependent on time and content of last meal. Glucose of more than 200 mg/dL in a nonstressed, ambulatory subject supports the diagnosis of Diabetes Mellitus. PERFORMED BY: [address] [address] PATHOLOGIST T[employer] ALINA PADILLA M.D. Performed By: #### GLULS ### # Point of Care testing , GLUCOSE POCT GLUCOMETERS Collected: 04/02/2025 2:57 P M Status: F Source: [facility] TYPE CODE TESTS RESULT OUT OF RANGE REFERENCE UNITS LAB GLUPOC Glucose Poc Glucometers 178 mg/dL Result Comment: Random Gluco se Reference Range is dependent on time and content of last meal. Glucose of more than 200 mg/dL in a nonstressed, ambulatory subject supports the diagnosis of Diabetes Mellitus. PERFORMED BY: [address] [address] PATHOLOGIST T[employer] ALINA PADILLA M.D. Performed By: #### GLULS ### # Point of Care testing , GLUCOSE POCT GLUCOMETERS Collected: 04/02/2025 11:54 AM Status: F Source: [facility] TYPE CODE TESTS RESULT OUT OF RANGE REFERENCE UNITS LAB GLUPOC Glucose Poc Glucometers 146 mg/dL Result Comment: Random Gluco se Reference Range is dependent on time and content of last meal. Glucose of more than 200 mg/dL in a nonstressed, ambulatory subject supports the diagnosis of Diabetes Mellitus. PERFORMED BY: [address] [address] PATHOLOGIST T[employer] ALINA PADILLA M.D. Performed By: #### GLULS ### # Point of Care testing , GLUCOSE POCT GLUCOMETERS Collected: 04/02/2025 6:14 A M Status: F Source: [facility] TYPE CODE TESTS RESULT OUT OF RANGE REFERENCE UNITS LAB GLUPOC Glucose Poc Glucometers 74 mg/dL Result Comment: Random Gluco se Reference Range is dependent on time and content of last meal. Glucose of more than 200 mg/dL in a nonstressed, ambulatory subject supports the diagnosis of Diabetes Mellitus. LAB COMM1 Commemt1 Glu2: Cleaned Meter Result Comment: PERFORMED BY : [address] [place] [address] PATHOLOGIST [employer] ALINA PADILLA M.D. Performed By: #### GLULS ### # Point of Care testing , GLUCOSE POCT GLUCOMETERS Collected: 04/02/2025 4:27 A M Status: F Source: [facility] TYPE CODE TESTS RESULT OUT OF RANGE REFERENCE UNITS LAB GLUPOC Glucose Poc Glucometers 94 mg/dL Result Comment: Random Gluco se Reference Range is dependent on time and content of last meal. Glucose of more than 200 mg/dL in a nonstressed, ambulatory subject supports the diagnosis of Diabetes Mellitus. LAB COMM1 Commemt1 Glu2: Cleaned Meter Result Comment: PERFORMED BY : [facility] [address] [place] [address] PATHOLOGIST T[employer] HAND ALINA PADILLA M.D. Performed By: #### GLULS ### # Point of Care testing , GLUCOSE POCT GLUCOMETERS Collected: 04/02/2025 1:44 A M Status: F Source: [facility] TYPE CODE TESTS RESULT OUT OF RANGE REFERENCE UNITS LAB GLUPOC Glucose Poc Glucometers 75 mg/dL Result Comment: Random Gluco se Reference Range is dependent on time and content of last meal. Glucose of more than 200 mg/dL in a nonstressed, ambulatory subject supports the diagnosis of Diabetes Mellitus. LAB COMM1 Commemt1 Glu2: Cleaned Meter Result Comment: PERFORMED BY : [facility] [address] [place] [address] PATHOLOGIST T[employer] HAND ALINA PADILLA M.D. Performed By: #### GLULS ### # Point of Care testing , GLUCOSE POCT GLUCOMETERS Collected: 04/02/2025 1:23 A M Status: F Source: [facility] TYPE CODE TESTS RESULT OUT OF RANGE REFERENCE UNITS LAB GLUPOC Glucose Poc Glucometers 62 mg/dL Result Comment: Random Gluco se Reference Range is dependent on time and content of last meal. Glucose of more than 200 mg/dL in a nonstressed, ambulatory subject supports the diagnosis of Diabetes Mellitus. LAB COMM1 Commemt1 Glu2: Cleaned Meter Result Comment: PERFORMED BY : [address] [place] [place] [address] PATHOLOGIST T[employer] HAND ALINA PADILLA M.D. Performed By: #### GLULS ### # Point of Care testing , GLUCOSE POCT GLUCOMETERS Collected: 04/01/2025 8:42 P M Status: F Source: [facility] TYPE CODE TESTS RESULT OUT OF RANGE REFERENCE UNITS LAB GLUPOC Glucose Poc Glucometers 161 mg/dL Result Comment: Random Gluco se Reference Range is dependent on time and content of last meal. Glucose of more than 200 mg/dL in a nonstressed, ambulatory subject supports the diagnosis of Diabetes Mellitus. LAB COMM1 Commemt1 Glu2: Cleaned Meter Result Comment: PERFORMED BY : [address] [place] [address] PATHOLOGIST T[employer] HAND ALINA PADILLA M.D. Performed By: #### GLULS ### # Point of Care testing , GLUCOSE POCT GLUCOMETERS Collected: 04/01/2025 6:17 P M Status: F Source: [facility] TYPE CODE TESTS RESULT OUT OF RANGE REFERENCE UNITS LAB GLUPOC Glucose Poc Glucometers 108 mg/dL Result Comment: Random Gluco se Reference Range is dependent on time and content of last meal. Glucose of more than 200 mg/dL in a nonstressed, ambulatory subject supports the diagnosis of Diabetes Mellitus. PERFORMED BY: [address] [place] [address] PATHOLOGIST T[employer] HAND ALINA PADILLA M.D. Performed By: #### GLULS ### # Point of Care testing , GLUCOSE POCT GLUCOMETERS Collected: 04/01/2025 6:02 P M Status: F Source: [facility] TYPE CODE TESTS RESULT OUT OF RANGE REFERENCE UNITS LAB GLUPOC Glucose Poc Glucometers 62 mg/dL Result Comment: Random Gluco se Reference Range is dependent on time and content of last meal. Glucose of more than 200 mg/dL in a nonstressed, ambulatory subject supports the diagnosis of Diabetes Mellitus. PERFORMED BY: [address] [place] [address] PATHOLOGIST T[employer] HAND ALINA PADILLA M.D. Performed By: #### GLULS ### # Point of Care testing , GLUCOSE POCT GLUCOMETERS Collected: 04/01/2025 5:44 P M Status: F Source: [facility] TYPE CODE TESTS RESULT OUT OF RANGE REFERENCE UNITS LAB GLUPOC Glucose Poc Glucometers 59 Low Off Scale mg/dL Result Comment: Random Gluco se Reference Range is dependent on time and content of last meal. Glucose of more than 200 mg/dL in a nonstressed, ambulatory subject supports the diagnosis of Diabetes Mellitus. LAB COMM1 Commemt1 Result Comment: Glu2: FOLLOW HYPOGLYCEMIC PERFORMED BY: [place] [id number] PATHOLOGIST T[employer] HAND ALINA PADILLA M.D. Performed By: #### GLULS ### # Point of Care testing , GLUCOSE POCT GLUCOMETERS Collected: 04/01/2025 4:26 P M Status: F Source: [facility] TYPE CODE TESTS RESULT OUT OF RANGE REFERENCE UNITS LAB GLUPOC Glucose Poc Glucometers 97 mg/dL Result Comment: Random Gluco se Reference Range is dependent on time and content of last meal. Glucose of more than 200 mg/dL in a nonstressed, ambulatory subject supports the diagnosis of Diabetes Mellitus. LAB COMM1 Commemt1 Glu2: Cleaned Meter Result Comment: PERFORMED BY : [address] [address] PATHOLOGIST T[employer] HAND ALINA PADILLA M.D. Performed By: #### GLULS ### # Point of Care testing , BASIC METABOLIC PANEL Collected: 04/01/2025 1:12 PM Status: F Source: [facility] TYPE CODE TESTS RESULT OUT OF RANGE REFERENCE UNITS LAB GLU Glucose 120 High 70-100 mg/dL Result Comment: Random Gluco se Reference Range is dependent on time and content of last meal. Glucose of more than 200 mg/dL in a nonstressed, ambulatory subject supports the diagnosis of Diabetes Mellitus. ADA recommended reference range LAB BUN Blood Urea Nitrogen 52 High 7-25 mg/dL LAB CREATT Creatinine 1.69 High 0.60-1.20 mg/dL LAB GFReNR Estimated GFR 30.531 LAB NA Sodium 137 Normal 136-145 mmol/L LAB K Potassium 4.7 Normal 3.5-5.1 mmol/L LAB CL Chloride 103 Normal 98-107 mmol/L LAB CO2 Carbon Dioxide 29.8 Normal 21.0-31.0 mmol/L LAB GAP Anion Gap 8.9 Normal 6.0-15.0 LAB CA Calcium 8.6 Normal 8.6-10.3 mg/dL LAB CRCLPHA Creatinine Clr Calc Pharmacy 25.05 Result Comment: PERFORMED BY : [place] [address] PATHOLOGIST T[employer] HAND ALINA PADILLA M.D. Performed By: #### BMP #### [address] GLUCOSE POCT GLUCOMETERS Collected: 04/01/2025 12:04 PM Status: F Source: [facility] TYPE CODE TESTS RESULT OUT OF RANGE REFERENCE UNITS LAB GLUPOC Glucose Poc Glucometers 128 mg/dL Result Comment: Random Gluco se Reference Range is dependent on time and content of last meal. Glucose of more than 200 mg/dL in a nonstressed, ambulatory subject supports the diagnosis of Diabetes Mellitus. LAB COMM1 Commemt1 Glu2: Cleaned Meter Result Comment: PERFORMED BY : [place] [address] PATHOLOGIST T[employer] HAND ALINA PADILLA M.D. Performed By: #### GLULS ### # Point of Care testing , GLUCOSE POCT GLUCOMETERS Collected: 04/01/2025 6:36 A M Status: F Source: [facility] TYPE CODE TESTS RESULT OUT OF RANGE REFERENCE UNITS LAB GLUPOC Glucose Poc Glucometers 121 mg/dL Result Comment: Random Gluco se Reference Range is dependent on time and content of last meal. Glucose of more than 200 mg/dL in a nonstressed, ambulatory subject supports the diagnosis of Diabetes Mellitus. PERFORMED BY: [address] [address] PATHOLOGIST TU[employer] HAND ALINA PADILLA M.D. Performed By: #### GLULS ### # Point of Care testing , GLUCOSE POCT GLUCOMETERS Collected: 04/01/2025 6:09 A M Status: F Source: [facility] TYPE CODE TESTS RESULT OUT OF RANGE REFERENCE UNITS LAB GLUPOC Glucose Poc Glucometers 79 mg/dL Result Comment: Random Gluco se Reference Range is dependent on time and content of last meal. Glucose of more than 200 mg/dL in a nonstressed, ambulatory subject supports the diagnosis of Diabetes Mellitus. PERFORMED BY: [address] [place] [address] PATHOLOGIST TU[employer] HAND ALINA PADILLA M.D. Performed By: #### GLULS ### # Point of Care testing , GLUCOSE POCT GLUCOMETERS Collected: 04/01/2025 5:46 A M Status: F Source: [facility] TYPE CODE TESTS RESULT OUT OF RANGE REFERENCE UNITS LAB GLUPOC Glucose Poc Glucometers 64 mg/dL Result Comment: Random Gluco se Reference Range is dependent on time and content of last meal. Glucose of more than 200 mg/dL in a nonstressed, ambulatory subject supports the diagnosis of Diabetes Mellitus. PERFORMED BY: [address] [place] [address] PATHOLOGIST T[employer] HAND ALINA PADILLA M.D. Performed By: #### GLULS ### # Point of Care testing , GLUCOSE POCT GLUCOMETERS Collected: 04/01/2025 2:13 A M Status: F Source: [facility] TYPE CODE TESTS RESULT OUT OF RANGE REFERENCE UNITS LAB GLUPOC Glucose Poc Glucometers 140 mg/dL Result Comment: Random Gluco se Reference Range is dependent on time and content of last meal. Glucose of more than 200 mg/dL in a nonstressed, ambulatory subject supports the diagnosis of Diabetes Mellitus. PERFORMED BY: [facility] [address] [facility] [place] [address] PATHOLOGIST TU[employer] HAND ALINA PADILLA M.D. Performed By: #### GLULS ### # Point of Care testing , GLUCOSE POCT GLUCOMETERS Collected: 03/31/2025 8:19 P M Status: F Source: [facility] TYPE CODE TESTS RESULT OUT OF RANGE REFERENCE UNITS LAB GLUPOC Glucose Poc Glucometers 264 mg/dL Result Comment: Random Gluco se Reference Range is dependent on time and content of last meal. Glucose of more than 200 mg/dL in a nonstressed, ambulatory subject supports the diagnosis of Diabetes Mellitus. PERFORMED BY: [facility] [address] [place] [address] PATHOLOGIST TU[employer] W[employer] HAND ALINA PADILLA M.D. Performed By: #### GLULS ### # Point of Care testing , GLUCOSE POCT GLUCOMETERS Collected: 03/31/2025 4:43 P M Status: F Source: [facility] TYPE CODE TESTS RESULT OUT OF RANGE REFERENCE UNITS LAB GLUPOC Glucose Poc Glucometers 263 mg/dL Result Comment: Random Gluco se Reference Range is dependent on time and content of last meal. Glucose of more than 200 mg/dL in a nonstressed, ambulatory subject supports the diagnosis of Diabetes Mellitus. PERFORMED BY: [facility] [address] [place] [address] PATHOLOGIST TU[employer] HAND ALINA PADILLA M.D. Performed By: #### GLULS ### # Point of Care testing , COMPLETE BLOOD COUNT AUTO DIFF Collected: 03/31/2025 1:55 PM Status: F Source: F [facility] TYPE CODE TESTS RESULT OUT OF RANGE REFERENCE UNITS LAB WBC White Blood Count 13.1 High 3.8-11.6 [CFU]/mL LAB UNWBC Uncorrected WBC 13.1 High 3.8-11.6 10*3/uL LAB RBC Red Blood Count 2.97 Low 3.60-5.00 10*6/u L LAB HGB Hemoglobin 9.7 Low 11.8-15.4 g/dL LAB HCT Hematocrit 30.6 Low 34.0-46.4 % LAB MCV Mean Corpuscular Volume 103.0 High 80-100 fL LAB MCH Mean Corpuscular Hemoglobin 32.6 Normal 24.7-34.3 pg LAB MCHC Mean Corpuscular HGB Conc 31.7 Low 32.0-35.0 g/dL LAB RDW Red Cell Distribution Width 17.6 High 11.9-15.3 % LAB PLT Platelet Count 200 Normal 150-450 10*3/uL LAB MPV Mean Platelet Volume 9.4 Normal 6.3-10.7 fL LAB NE% Neutrophils % (Auto) 85.5 . % LAB LY% Lymphocytes % (Auto) 8.2 . % LAB MO% Monocytes % (Auto) 5.6 . % LAB EO% Eosinophils % (Auto) 0.2 . % LAB BA% Basophils % (Auto) 0.5 . % LAB NRBC% NRBC% 0.2 Normal 0-0.5 /100{WBC} LAB NE# Neutrophils # (Auto) 11.2 High 1.8-7.7 10*3/uL LAB LY# Lymphocytes # (Auto) 1.1 Normal 1.00-4.8 10*3/uL LAB MO# Monocytes # (Auto) 0.7 Normal 0.0-0.8 10*3/uL LAB EO# Eosinophils # (Auto) 0.0 Normal 0.0-0.45 10*3/uL LAB BA# Basophils # (Auto) 0.1 Normal 0.0-0.2 10*3/uL Result Comment: PERFORMED BY : [place] [address] PATHOLOGIST [employer] ALNIA PADILLA M.D. Performed By: #### BNP, CBC #### [address] B-TYPE NATRIURETIC PEPTIDE Collected: 03/31/2025 1:55 PM Status: F Source: [facility] TYPE CODE TESTS RESULT OUT OF RANGE REFERENCE UNITS LAB BNP B-Type Natriuretic Peptide 791.0 High 5-100 pg/mL Result Comment: PERFORMED BY : [place] [address] PATHOLOGIST [employer] ALINA PADILLA M.D. Performed By: #### BNP, CBC #### [address] GLUCOSE POCT GLUCOMETERS Collected: 03/31/2025 11:58 AM Status: F Source: [facility] TYPE CODE TESTS RESULT OUT OF RANGE REFERENCE UNITS LAB GLUPOC Glucose Poc Glucometers 126 mg/dL Result Comment: Random Gluco se Reference Range is dependent on time and content of last meal. Glucose of more than 200 mg/dL in a nonstressed, ambulatory subject supports the diagnosis of Diabetes Mellitus. PERFORMED BY: [place] [address] PATHOLOGIST [employer] ALINA PADILLA M.D. Performed By: #### GLULS ### # Point of Care testing , GLUCOSE POCT GLUCOMETERS Collected: 03/31/2025 8:08 A M Status: F Source: [facility] TYPE CODE TESTS RESULT OUT OF RANGE REFERENCE UNITS LAB GLUPOC Glucose Poc Glucometers 120 mg/dL Result Comment: Random Gluco se Reference Range is dependent on time and content of last meal. Glucose of more than 200 mg/dL in a nonstressed, ambulatory subject supports the diagnosis of Diabetes Mellitus. LAB COMM1 Commemt1 Glu2: Cleaned Meter Result Comment: PERFORMED BY : [address] [place] [address] PATHOLOGIST [employer] ALINA PADILLA M.D. Performed By: #### GLULS ### # Point of Care testing , GLUCOSE POCT GLUCOMETERS Collected: 03/31/2025 7:43 A M Status: F Source: [facility] TYPE CODE TESTS RESULT OUT OF RANGE REFERENCE UNITS LAB GLUPOC Glucose Poc Glucometers 68 mg/dL Result Comment: Random Gluco se Reference Range is dependent on time and content of last meal. Glucose of more than 200 mg/dL in a nonstressed, ambulatory subject supports the diagnosis of Diabetes Mellitus. PERFORMED BY: [address] [place] [address] PATHOLOGIST [employer] ALINA PADILLA M.D. Performed By: #### GLULS ### # Point of Care testing , GLUCOSE POCT GLUCOMETERS Collected: 03/31/2025 7:23 A M Status: F Source: [facility] TYPE CODE TESTS RESULT OUT OF RANGE REFERENCE UNITS LAB GLUPOC Glucose Poc Glucometers 61 mg/dL Result Comment: Random Gluco se Reference Range is dependent on time and content of last meal. Glucose of more than 200 mg/dL in a nonstressed, ambulatory subject supports the diagnosis of Diabetes Mellitus. PERFORMED BY: [address] [place] [address] PATHOLOGIST [employer] ALINA PADILLA M.D. Performed By: #### GLULS ### # Point of Care testing , GLUCOSE POCT GLUCOMETERS Collected: 03/30/2025 8:19 P M Status: F Source: [facility] TYPE CODE TESTS RESULT OUT OF RANGE REFERENCE UNITS LAB GLUPOC Glucose Poc Glucometers 288 mg/dL Result Comment: Random Gluco se Reference Range is dependent on time and content of last meal. Glucose of more than 200 mg/dL in a nonstressed, ambulatory subject supports the diagnosis of Diabetes Mellitus. PERFORMED BY: [address] [place] [place] [address] PATHOLOGIST [employer] ALINA PADILLA M.D. Performed By: #### GLULS ### # Point of Care testing , GLUCOSE POCT GLUCOMETERS Collected: 03/30/2025 4:33 P M Status: F Source: [facility] TYPE CODE TESTS RESULT OUT OF RANGE REFERENCE UNITS LAB GLUPOC Glucose Poc Glucometers 216 mg/dL Result Comment: Random Gluco se Reference Range is dependent on time and content of last meal. Glucose of more than 200 mg/dL in a nonstressed, ambulatory subject supports the diagnosis of Diabetes Mellitus. PERFORMED BY: [address] [address] PATHOLOGIST [employer] ALINA PADILLA M.D. Performed By: #### GLULS ### # Point of Care testing , GLUCOSE POCT GLUCOMETERS Collected: 03/30/2025 11:45 AM Status: F Source: [facility] TYPE CODE TESTS RESULT OUT OF RANGE REFERENCE UNITS LAB GLUPOC Glucose Poc Glucometers 109 mg/dL Result Comment: Random Gluco se Reference Range is dependent on time and content of last meal. Glucose of more than 200 mg/dL in a nonstressed, ambulatory subject supports the diagnosis of Diabetes Mellitus. LAB COMM1 Commemt1 Glu2: Cleaned Meter Result Comment: PERFORMED BY : [facility] [address] [place] [place] [address] PATHOLOGIST [employer] ALINA PADILLA M.D. Performed By: #### GLULS ### # Point of Care testing , GLUCOSE POCT GLUCOMETERS Collected: 03/30/2025 6:16 A M Status: F Source: [facility] TYPE CODE TESTS RESULT OUT OF RANGE REFERENCE UNITS LAB GLUPOC Glucose Poc Glucometers 108 mg/dL Result Comment: Random Gluco se Reference Range is dependent on time and content of last meal. Glucose of more than 200 mg/dL in a nonstressed, ambulatory subject supports the diagnosis of Diabetes Mellitus. PERFORMED BY: [address] [place] [address] PATHOLOGIST [employer] ALINA PADILLA M.D. Performed By: #### GLULS ### # Point of Care testing , GLUCOSE POCT GLUCOMETERS Collected: 03/30/2025 1:12 A M Status: F Source: [facility] TYPE CODE TESTS RESULT OUT OF RANGE REFERENCE UNITS LAB GLUPOC Glucose Poc Glucometers 222 mg/dL Result Comment: Random Gluco se Reference Range is dependent on time and content of last meal. Glucose of more than 200 mg/dL in a nonstressed, ambulatory subject supports the diagnosis of Diabetes Mellitus. PERFORMED BY: [address] [place] [address] PATHOLOGIST [employer] ALINA PADILLA M.D. Performed By: #### GLULS ### # Point of Care testing , GLUCOSE POCT GLUCOMETERS Collected: 03/29/2025 8:47 P M Status: F Source: [facility] TYPE CODE TESTS RESULT OUT OF RANGE REFERENCE UNITS LAB GLUPOC Glucose Poc Glucometers 326 mg/dL Result Comment: Random Gluco se Reference Range is dependent on time and content of last meal. Glucose of more than 200 mg/dL in a nonstressed, ambulatory subject supports the diagnosis of Diabetes Mellitus. LAB COMM1 Commemt1 Glu2: Cleaned Meter Result Comment: PERFORMED BY : [address] [place] [address] PATHOLOGIST [employer] ALINA PADILLA M.D. Performed By: #### GLULS ### # Point of Care testing , GLUCOSE POCT GLUCOMETERS Collected: 03/29/2025 4:38 P M Status: F Source: [facility] TYPE CODE TESTS RESULT OUT OF RANGE REFERENCE UNITS LAB GLUPOC Glucose Poc Glucometers 258 mg/dL Result Comment: Random Gluco se Reference Range is dependent on time and content of last meal. Glucose of more than 200 mg/dL in a nonstressed, ambulatory subject supports the diagnosis of Diabetes Mellitus. PERFORMED BY: [place] [address] PATHOLOGIST [employer] ALINA PADILLA M.D. Performed By: #### GLULS ### # Point of Care testing , RESPIRATORY (UPPER) PANEL, PCR Observed: 03/29/2025 2:30 PM Status: F Source: [facility] Adenovirus Not detected Bordetella parapertussis Not detected Chlamydia pneumoniae Not detected Coronavirus 229E Not detected Coronavirus HKU1 Not detected Coronavirus NL63 Not detected Coronavirus OC43 Not detected Influenza A Not detected Influenza B Not detected Human Metapneumovirus Not detected Mycoplasma pneumoniae Not detected Parainfluenza Virus 1 Not detected Parainfluenza Virus 2 Not detected Parainfluenza Virus 3 Not detected Parainfluenza Virus 4 Not detected Bordetella pertussis-ptxP Not detected Human Rhino/Enterovirus Not detected Resp. Syncytial Virus Not detected COVID-19 Detected/Not Detected Not detected Blank Space FLUA TEST INCLUDES Influenza A tests for the following clinically FLUA TEST INCLUDES significant subtypes: FLUA TEST INCLUDES - Influenza A FLUA TEST INCLUDES - Influenza A H1 FLUA TEST INCLUDES - Influenza A H1 2009 FLUA TEST INCLUDES - Influenza A H3 Blank Space PERFORMED BY: [place] [address] PATHOLOGIST [employer] ALINA PADILLA M.D. Performed By: #### BIOFIRECO VNOTDE, RESP PANEL UPP. #### [address] BIOFIRE NOT DETECTED Collected: 03/29/2025 2:30 PM S tatus: F Source: [facility] TYPE CODE TESTS RESULT OUT OF RANGE REFERENCE UNITS LAB BIOFIRECOVNOTDE BioFire Not Detected Not Detected Not Detecte Result Comment: This is a du plicate RP2.1 COVID (PCR) result to be used for statistical tracking purpose only. PERFORMED BY: [place] [address] PATHOLOGIST [employer] ALINA PADILLA M.D. Performed By: #### BIOFIRECO VNOTDE, RESP PANEL UPP. #### [address] GLUCOSE POCT GLUCOMETERS Collected: 03/29/2025 12:02 PM Status: F Source: [facility] TYPE CODE TESTS RESULT OUT OF RANGE REFERENCE UNITS LAB GLUPOC Glucose Poc Glucometers 145 mg/dL Result Comment: Random Gluco se Reference Range is dependent on time and content of last meal. Glucose of more than 200 mg/dL in a nonstressed, ambulatory subject supports the diagnosis of Diabetes Mellitus. PERFORMED BY: [place] [address] PATHOLOGIST [employer] ALINA PADILLA M.D. Performed By: #### GLULS ### # Point of Care testing , GLUCOSE POCT GLUCOMETERS Collected: 03/29/2025 6:12 A M Status: F Source: [facility] TYPE CODE TESTS RESULT OUT OF RANGE REFERENCE UNITS LAB GLUPOC Glucose Poc Glucometers 80 mg/dL Result Comment: Random Gluco se Reference Range is dependent on time and content of last meal. Glucose of more than 200 mg/dL in a nonstressed, ambulatory subject supports the diagnosis of Diabetes Mellitus. PERFORMED BY: [place] [address] PATHOLOGIST [employer] ALINA PADILLA M.D. Performed By: #### GLULS ### # Point of Care testing , GLUCOSE POCT GLUCOMETERS Collected: 03/29/2025 5:24 A M Status: F Source: [facility] TYPE CODE TESTS RESULT OUT OF RANGE REFERENCE UNITS LAB GLUPOC Glucose Poc Glucometers 66 mg/dL Result Comment: Random Gluco se Reference Range is dependent on time and content of last meal. Glucose of more than 200 mg/dL in a nonstressed, ambulatory subject supports the diagnosis of Diabetes Mellitus. PERFORMED BY: [place] [id number] PATHOLOGIST [employer] ALINA PADILLA M.D. Performed By: #### GLULS ### # Point of Care testing , XR CHEST 1V PORTABLE Observed: 11:55 PM Status: COMPLETED Source: [facility] [place] [address] XRay Report Signed Patient: Lexi Tatum MR#: [id number] : 1945 Acct:[id number] Age/Sex: 79 / F ADM Date: 03/22/25 Loc: Room: [address] [place] [address] Type: ADM IN Attending Dr: Farhat Almeida MD Copies to: Farhat Almeida MD Ordering Provider: Farhat Almeida MD Date of Service: 03/28/25 XR/XR chest 1V portable: Cough with coarse breath sounds XR chest 1V portable 03/28/2025 4:22 PM SIGNS AND SYMPTOMS: Cough, shortness of breath PROTOCOL: Frontal radiograph of the chest COMPARISON: 07/21/2018 FINDINGS: The trachea is midline. Sternotomy wires overlie the mediastinum. Atherosclerotic changes are present in the thoracic aorta. Surgical clips are noted along the pericardium. The heart and mediastinal structures are within normal limits. Hazy airspace opacities are present, greatest near the lung bases. This is more pronounced on the left compared to the right. These are new compared to the prior exam. The bony thorax is intact. XR/XR chest 1V portable IMPRESSION: Hazy airspace opacities are present, greatest near the lung bases. This is more pronounced on the left compared to the right. These are new compared to the prior exam. Impression dictated by: Rhett Ponce M.D. 03/28/2025 11:57 PM Dictation Location: [place] [address] Transcribed By: [facility] 03/28/25 8908 Dictated By: Rhett Ponce II, MD 03/28/252354 Signed By: <Electronically signed by Rhett Ponce II, MD in OV> 03/28/257 GLUCOSE POCT GLUCOMETERS Collected: 03/28/2025 8:20 P M Status: F Source: [facility] TYPE CODE TESTS RESULT OUT OF RANGE REFERENCE UNITS LAB GLUPOC Glucose Poc Glucometers 293 mg/dL Result Comment: Random Gluco se Reference Range is dependent on time and content of last meal. Glucose of more than 200 mg/dL in a nonstressed, ambulatory subject supports the diagnosis of Diabetes Mellitus. PERFORMED BY: [address] [place] [address] PATHOLOGIST [employer] ALINA PADILLA M.D. Performed By: #### GLULS ### # Point of Care testing , GLUCOSE POCT GLUCOMETERS Collected: 03/28/2025 4:59 P M Status: F Source: [facility] TYPE CODE TESTS RESULT OUT OF RANGE REFERENCE UNITS LAB GLUPOC Glucose Poc Glucometers 277 mg/dL Result Comment: Random Gluco se Reference Range is dependent on time and content of last meal. Glucose of more than 200 mg/dL in a nonstressed, ambulatory subject supports the diagnosis of Diabetes Mellitus. PERFORMED BY: [address] [place] [address] PATHOLOGIST [employer] ALINA PADILLA M.D. Performed By: #### GLULS ### # Point of Care testing , GLUCOSE POCT GLUCOMETERS Collected: 03/28/2025 11:31 AM Status: F Source: [facility] TYPE CODE TESTS RESULT OUT OF RANGE REFERENCE UNITS LAB GLUPOC Glucose Poc Glucometers 209 mg/dL Result Comment: Random Gluco se Reference Range is dependent on time and content of last meal. Glucose of more than 200 mg/dL in a nonstressed, ambulatory subject supports the diagnosis of Diabetes Mellitus. PERFORMED BY: [facility] [address] [place] [address] PATHOLOGIST [employer] ALINA PADILLA M.D. Performed By: #### GLULS ### # Point of Care testing , GLUCOSE POCT GLUCOMETERS Collected: 03/28/2025 8:06 A M Status: F Source: [facility] TYPE CODE TESTS RESULT OUT OF RANGE REFERENCE UNITS LAB GLUPOC Glucose Poc Glucometers 92 mg/dL Result Comment: Random Gluco se Reference Range is dependent on time and content of last meal. Glucose of more than 200 mg/dL in a nonstressed, ambulatory subject supports the diagnosis of Diabetes Mellitus. PERFORMED BY: [address] [place] [address] PATHOLOGIST [employer] ALINA PADILLA M.D. Performed By: #### GLULS ### # Point of Care testing , GLUCOSE POCT GLUCOMETERS Collected: 03/27/2025 7:49 P M Status: F Source: [facility] TYPE CODE TESTS RESULT OUT OF RANGE REFERENCE UNITS LAB GLUPOC Glucose Poc Glucometers 333 mg/dL Result Comment: Random Gluco se Reference Range is dependent on time and content of last meal. Glucose of more than 200 mg/dL in a nonstressed, ambulatory subject supports the diagnosis of Diabetes Mellitus. PERFORMED BY: [address] [address] PATHOLOGIST [employer] ALINA PADILLA M.D. Performed By: #### GLULS ### # Point of Care testing , GLUCOSE POCT GLUCOMETERS Collected: 03/27/2025 4:47 P M Status: F Source: [facility] TYPE CODE TESTS RESULT OUT OF RANGE REFERENCE UNITS LAB GLUPOC Glucose Poc Glucometers 286 mg/dL Result Comment: Random Gluco se Reference Range is dependent on time and content of last meal. Glucose of more than 200 mg/dL in a nonstressed, ambulatory subject supports the diagnosis of Diabetes Mellitus. PERFORMED BY: [address] [place] [address] PATHOLOGIST [employer] ALINA PADILLA M.D. Performed By: #### GLULS ### # Point of Care testing , GLUCOSE POCT GLUCOMETERS Collected: 03/27/2025 11:38 AM Status: F Source: [facility] TYPE CODE TESTS RESULT OUT OF RANGE REFERENCE UNITS LAB GLUPOC Glucose Poc Glucometers 248 mg/dL Result Comment: Random Gluco se Reference Range is dependent on time and content of last meal. Glucose of more than 200 mg/dL in a nonstressed, ambulatory subject supports the diagnosis of Diabetes Mellitus. LAB COMM1 Commemt1 Glu2: Cleaned Meter Result Comment: PERFORMED BY : [place] [address] PATHOLOGIST [employer] ALINA PADILLA M.D. Performed By: #### GLULS ### # Point of Care testing , DIPSTICK AND MICROSCOPIC Collected: 10:05 AM Status: F Source: [facility] Order Comment: Name Collecti on Type:: Clean-Voided Midstream TYPE CODE TESTS RESULT OUT OF RANGE REFERENCE UNITS LAB UCOL Color,Urine Light-Yellow Yellow LAB UAPP Appearance,Uri ne Cloudy Abnormal Alert Clear LAB USG Specificy Sutton,Urine 1.016 Normal 1.001-1.030 LAB UPH pH,Urine 5.5 Normal 5.0-9.0 LAB ULE Leukocyte Esterase,Urine 4+ Negative LAB UNIT Nitrite,Urine Negative Negative LAB UPRO Protein,Urine 70 Negative mg/dL LAB UGL Glucose,Urine (UA) Normal Normal mg/dL LAB UKET Ketones,Urine Negative Negative LAB UURO Urobilinogen,U rine Normal Normal mg/dL LAB UBIL Bilirubin,Urin e Negative Negative LAB UBLD Occult Blood,Urine 2+ Negative Result Comment: PERFORMED BY : [place] [address] PATHOLOGIST [employer] ALINA PADILLA M.D. LAB URBC RBC,Urine 50-100 0-4 [HPF] LAB UWBC WBC,Urine 20-49 0-4 [HPF] LAB UCLUMPWBC WBC CLUMP, Urine Rare None Seen [LPF] LAB USQEPI Squamous Epithelial Cell,Urine 3-4 0-2 [HPF] LAB UBACT Bacteria,Urine Rare None Seen [HPF] LAB UHYALC Hyaline Casts,Urine None 0-8 [LPF] LAB MUCUS Mucus,Urine Rare [LPF] Result Comment: PERFORMED BY : [place] [address] PATHOLOGIST [employer] ALINA PADILLA M.D. Performed By: #### ADDONUAPL US, CUU #### [address] URINE CULTURE Observed: 03/27/2025 10:05 AM Status: F Source: [facility] <10,000 colonies/ml mixed bacterial skin contaminants including mixed gram negative bacilli - 2 Days PERFORMED BY: [place] [address] PATHOLOGIST [employer] ALINA PADILLA M.D. Performed By: #### ADDONUAPL US, CUU #### [facility] [address] [place], [place] [id number] [facility] BASIC METABOLIC PANEL Collected: 03/27/2025 8:30 AM Status: F Source: [facility] TYPE CODE TESTS RESULT OUT OF RANGE REFERENCE UNITS LAB GLU Glucose 67 Low 70-100 mg/dL Result Comment: Random Gluco se Reference Range is dependent on time and content of last meal. Glucose of more than 200 mg/dL in a nonstressed, ambulatory subject supports the diagnosis of Diabetes Mellitus. ADA recommended reference range LAB BUN Blood Urea Nitrogen 52 High 7-25 mg/dL LAB CREATT Creatinine 1.87 High 0.60-1.20 mg/dL LAB GFReNR Estimated GFR 27.039 LAB NA Sodium 138 Normal 136-145 mmol/L LAB K Potassium 4.3 Normal 3.5-5.1 mmol/L LAB CL Chloride 102 Normal 98-107 mmol/L LAB CO2 Carbon Dioxide 30.8 Normal 21.0-31.0 mmol/L LAB GAP Anion Gap 9.5 Normal 6.0-15.0 LAB CA Calcium 8.4 Low 8.6-10.3 mg/dL LAB CRCLPHA Creatinine Clr Calc Pharmacy 22.64 Result Comment: PERFORMED BY : [place] [address] PATHOLOGIST [employer] ALINA PADILLA M.D. Performed By: #### BMP #### [facility] [address] [place], [place] [id number] [facility] GLUCOSE POCT GLUCOMETERS Collected: 03/27/2025 7:40 A M Status: F Source: [facility] TYPE CODE TESTS RESULT OUT OF RANGE REFERENCE UNITS LAB GLUPOC Glucose Poc Glucometers 97 mg/dL Result Comment: Random Gluco se Reference Range is dependent on time and content of last meal. Glucose of more than 200 mg/dL in a nonstressed, ambulatory subject supports the diagnosis of Diabetes Mellitus. PERFORMED BY: [address] [address] PATHOLOGIST [employer] ALINA PADILLA M.D. Performed By: #### GLULS ### # Point of Care testing , GLUCOSE POCT GLUCOMETERS Collected: 03/26/2025 8:10 P M Status: F Source: [facility] TYPE CODE TESTS RESULT OUT OF RANGE REFERENCE UNITS LAB GLUPOC Glucose Poc Glucometers 396 mg/dL Result Comment: Random Gluco se Reference Range is dependent on time and content of last meal. Glucose of more than 200 mg/dL in a nonstressed, ambulatory subject supports the diagnosis of Diabetes Mellitus. PERFORMED BY: [address] [place] [address] PATHOLOGIST [employer] ALINA PADILLA M.D. Performed By: #### GLULS ### # Point of Care testing , GLUCOSE POCT GLUCOMETERS Collected: 03/26/2025 4:19 P M Status: F Source: [facility] TYPE CODE TESTS RESULT OUT OF RANGE REFERENCE UNITS LAB GLUPOC Glucose Poc Glucometers 352 mg/dL Result Comment: Random Gluco se Reference Range is dependent on time and content of last meal. Glucose of more than 200 mg/dL in a nonstressed, ambulatory subject supports the diagnosis of Diabetes Mellitus. LAB COMM1 Commemt1 Glu2: Cleaned Meter Result Comment: PERFORMED BY : [address] [place] [address] PATHOLOGIST [employer] ALINA PADILLA M.D. Performed By: #### GLULS ### # Point of Care testing , BASIC METABOLIC PANEL Collected: 2024 11:22 AM Status: F Source: [facility] TYPE CODE TESTS RESULT OUT OF RANGE REFERENCE UNITS LAB GLU Glucose 131 High 70-100 mg/dL Result Comment: Random Gluco se Reference Range is dependent on time and content of last meal. Glucose of more than 200 mg/dL in a nonstressed, ambulatory subject supports the diagnosis of Diabetes Mellitus. ADA recommended reference range LAB BUN Blood Urea Nitrogen 52 High 7-25 mg/dL LAB CREATT Creatinine 2.09 High 0.60-1.20 mg/dL LAB GFReNR Estimated GFR 23.661 LAB NA Sodium 134 Low 136-145 mmol/L LAB K Potassium 4.6 Normal 3.5-5.1 mmol/L LAB CL Chloride 100 Normal 98-107 mmol/L LAB CO2 Carbon Dioxide 25.2 Normal 21.0-31.0 mmol/L LAB GAP Anion Gap 13.4 Normal 6.0-15.0 LAB CA Calcium 8.4 Low 8.6-10.3 mg/dL LAB CRCLPHA Creatinine Clr Calc Pharmacy 19.28 Result Comment: PERFORMED BY : [place] [address] PATHOLOGIST [employer] ALINA PADILLA M.D. Performed By: #### CBC, BMP #### [address] GLUCOSE POCT GLUCOMETERS Collected: 03/26/2025 11:22 AM Status: F Source: [facility] TYPE CODE TESTS RESULT OUT OF RANGE REFERENCE UNITS LAB GLUPOC Glucose Poc Glucometers 148 mg/dL Result Comment: Random Gluco se Reference Range is dependent on time and content of last meal. Glucose of more than 200 mg/dL in a nonstressed, ambulatory subject supports the diagnosis of Diabetes Mellitus. LAB COMM1 Commemt1 Glu2: Cleaned Meter Result Comment: PERFORMED BY : [place] [address] PATHOLOGIST [employer] ALINA PADILLA M.D. Performed By: #### GLULS ### # Point of Care testing , COMPLETE BLOOD COUNT AUTO DIFF Collected: 03/26/2025 11:21 AM Status: F Source: [facility] TYPE CODE TESTS RESULT OUT OF RANGE REFERENCE UNITS LAB WBC White Blood Count 13.0 High 3.8-11.6 [CFU]/mL LAB UNWBC Uncorrected WBC 13.0 High 3.8-11.6 10*3/uL LAB RBC Red Blood Count 3.12 Low 3.60-5.00 10*6/u L LAB HGB Hemoglobin 10.3 Low 11.8-15.4 g/dL LAB HCT Hematocrit 31.8 Low 34.0-46.4 % LAB MCV Mean Corpuscular Volume 101.8 High 80-100 fL LAB MCH Mean Corpuscular Hemoglobin 32.8 Normal 24.7-34.3 pg LAB MCHC Mean Corpuscular HGB Conc 32.3 Normal 32.0-35.0 g/dL LAB RDW Red Cell Distribution Width 15.7 High 11.9-15.3 % LAB PLT Platelet Count 212 Normal 150-450 10*3/uL LAB MPV Mean Platelet Volume 9.7 Normal 6.3-10.7 fL LAB NE% Neutrophils % (Auto) 75.6 . % LAB LY% Lymphocytes % (Auto) 14.7 . % LAB MO% Monocytes % (Auto) 7.0 . % LAB EO% Eosinophils % (Auto) 2.0 . % LAB BA% Basophils % (Auto) 0.7 . % LAB NRBC% NRBC% 0.2 Normal 0-0.5 /100{WBC} LAB NE# Neutrophils # (Auto) 9.8 High 1.8-7.7 10*3/uL LAB LY# Lymphocytes # (Auto) 1.9 Normal 1.00-4.8 10*3/uL LAB MO# Monocytes # (Auto) 0.9 High 0.0-0.8 10*3/uL LAB EO# Eosinophils # (Auto) 0.3 Normal 0.0-0.45 10*3/uL LAB BA# Basophils # (Auto) 0.1 Normal 0.0-0.2 10*3/uL Result Comment: PERFORMED BY : [place] [address] PATHOLOGIST [employer] ALINA PADILLA M.D. Performed By: #### CBC, BMP #### [address] GLUCOSE POCT GLUCOMETERS Collected: 03/26/2025 6:32 A M Status: F Source: [facility] TYPE CODE TESTS RESULT OUT OF RANGE REFERENCE UNITS LAB GLUPOC Glucose Poc Glucometers 92 mg/dL Result Comment: Random Gluco se Reference Range is dependent on time and content of last meal. Glucose of more than 200 mg/dL in a nonstressed, ambulatory subject supports the diagnosis of Diabetes Mellitus. PERFORMED BY: [place] [address] PATHOLOGIST TUBE WINDER HAND ALINA PADILLA M.D. Performed By: #### GLULS ### # Point of Care testing , GLUCOSE POCT GLUCOMETERS Collected: 03/25/2025 8:40 P M Status: F Source: [facility] TYPE CODE TESTS RESULT OUT OF RANGE REFERENCE UNITS LAB GLUPOC Glucose Poc Glucometers 364 mg/dL Result Comment: Random Gluco se Reference Range is dependent on time and content of last meal. Glucose of more than 200 mg/dL in a nonstressed, ambulatory subject supports the diagnosis of Diabetes Mellitus. PERFORMED BY: [address] [address] PATHOLOGIST TUBE WINDER HAND ALIAN PADILLA M.D. Performed By: #### GLULS ### # Point of Care testing , GLUCOSE POCT GLUCOMETERS Collected: 03/25/2025 4:41 P M Status: F Source: [facility] TYPE CODE TESTS RESULT OUT OF RANGE REFERENCE UNITS LAB GLUPOC Glucose Poc Glucometers 248 mg/dL Result Comment: Random Gluco se Reference Range is dependent on time and content of last meal. Glucose of more than 200 mg/dL in a nonstressed, ambulatory subject supports the diagnosis of Diabetes Mellitus. PERFORMED BY: [address] [address] PATHOLOGIST TUBE WINDER HAND ALINA PADILLA M.D. Performed By: #### GLULS ### # Point of Care testing , GLUCOSE POCT GLUCOMETERS Collected: 03/25/2025 11:25 AM Status: F Source: [facility] TYPE CODE TESTS RESULT OUT OF RANGE REFERENCE UNITS LAB GLUPOC Glucose Poc Glucometers 176 mg/dL Result Comment: Random Gluco se Reference Range is dependent on time and content of last meal. Glucose of more than 200 mg/dL in a nonstressed, ambulatory subject supports the diagnosis of Diabetes Mellitus. LAB COMM1 Commemt1 Glu2: Cleaned Meter Result Comment: PERFORMED BY : [address] [address] PATHOLOGIST TUBE WINDER HAND ALINA PADILLA M.D. Performed By: #### GLULS ### # Point of Care testing , GLUCOSE POCT GLUCOMETERS Collected: 03/25/2025 6:27 A M Status: F Source: [facility] TYPE CODE TESTS RESULT OUT OF RANGE REFERENCE UNITS LAB GLUPOC Glucose Poc Glucometers 153 mg/dL Result Comment: Random Gluco se Reference Range is dependent on time and content of last meal. Glucose of more than 200 mg/dL in a nonstressed, ambulatory subject supports the diagnosis of Diabetes Mellitus. LAB COMM1 Commemt1 Glu2: Cleaned Meter Result Comment: PERFORMED BY : [address] [place] [address] PATHOLOGIST TUBE WINDER HAND ALINA PADILLA M.D. Performed By: #### GLULS ### # Point of Care testing , GLUCOSE POCT GLUCOMETERS Collected: 03/24/2025 8:20 P M Status: F Source: [facility] TYPE CODE TESTS RESULT OUT OF RANGE REFERENCE UNITS LAB GLUPOC Glucose Poc Glucometers 294 mg/dL Result Comment: Random Gluco se Reference Range is dependent on time and content of last meal. Glucose of more than 200 mg/dL in a nonstressed, ambulatory subject supports the diagnosis of Diabetes Mellitus. LAB COMM1 Commemt1 Glu2: Cleaned Meter Result Comment: PERFORMED BY : [address] [place] [place] [address] PATHOLOGIST TUBE WINDER HAND ALINA PADILLA M.D. Performed By: #### GLULS ### # Point of Care testing , GLUCOSE POCT GLUCOMETERS Collected: 03/24/2025 5:04 P M Status: F Source: [facility] TYPE CODE TESTS RESULT OUT OF RANGE REFERENCE UNITS LAB GLUPOC Glucose Poc Glucometers 210 mg/dL Result Comment: Random Gluco se Reference Range is dependent on time and content of last meal. Glucose of more than 200 mg/dL in a nonstressed, ambulatory subject supports the diagnosis of Diabetes Mellitus. LAB COMM1 Commemt1 Result Comment: Glu2: WILL N OTIFY DR/MEDICAL RADIATION THERAPIST COMM2 Commemt2 Cleaned Meter Result Comment: PERFORMED BY : [address] [place] [address] PATHOLOGIST TUBE WINDER HAND ALINA PADILLA M.D. Performed By: #### GLULS ### # Point of Care testing , GLUCOSE POCT GLUCOMETERS Collected: 03/24/2025 12:09 PM Status: F Source: [facility] TYPE CODE TESTS RESULT OUT OF RANGE REFERENCE UNITS LAB GLUPOC Glucose Poc Glucometers 172 mg/dL Result Comment: Random Gluco se Reference Range is dependent on time and content of last meal. Glucose of more than 200 mg/dL in a nonstressed, ambulatory subject supports the diagnosis of Diabetes Mellitus. PERFORMED BY: [address] [place] [address] PATHOLOGIST TUBE WINDER HAND ALINA PADILLA M.D. Performed By: #### GLULS ### # Point of Care testing , GLUCOSE POCT GLUCOMETERS Collected: 03/24/2025 6:48 A M Status: F Source: [facility] TYPE CODE TESTS RESULT OUT OF RANGE REFERENCE UNITS LAB GLUPOC Glucose Poc Glucometers 136 mg/dL Result Comment: Random Gluco se Reference Range is dependent on time and content of last meal. Glucose of more than 200 mg/dL in a nonstressed, ambulatory subject supports the diagnosis of Diabetes Mellitus. PERFORMED BY: [address] [place] [address] PATHOLOGIST TUBE WINDER HAND ALINA PADILLA M.D. Performed By: #### GLULS ### # Point of Care testing , GLUCOSE POCT GLUCOMETERS Collected: 03/23/2025 8:25 P M Status: F Source: [facility] TYPE CODE TESTS RESULT OUT OF RANGE REFERENCE UNITS LAB GLUPOC Glucose Poc Glucometers 322 mg/dL Result Comment: Random Gluco se Reference Range is dependent on time and content of last meal. Glucose of more than 200 mg/dL in a nonstressed, ambulatory subject supports the diagnosis of Diabetes Mellitus. PERFORMED BY: [facility] [address] [place] [address] PATHOLOGIST TUBE WINDER HAND ALINA PADILLA M.D. Performed By: #### GLULS ### # Point of Care testing , GLUCOSE POCT GLUCOMETERS Collected: 03/23/2025 4:34 P M Status: F Source: [facility] TYPE CODE TESTS RESULT OUT OF RANGE REFERENCE UNITS LAB GLUPOC Glucose Poc Glucometers 235 mg/dL Result Comment: Random Gluco se Reference Range is dependent on time and content of last meal. Glucose of more than 200 mg/dL in a nonstressed, ambulatory subject supports the diagnosis of Diabetes Mellitus. PERFORMED BY: [address] [address] PATHOLOGIST TUBE WINDER HAND ALINA PADILLA M.D. Performed By: #### GLULS ### # Point of Care testing , GLUCOSE POCT GLUCOMETERS Collected: 03/23/2025 11:31 AM Status: F Source: [facility] TYPE CODE TESTS RESULT OUT OF RANGE REFERENCE UNITS LAB GLUPOC Glucose Poc Glucometers 232 mg/dL Result Comment: Random Gluco se Reference Range is dependent on time and content of last meal. Glucose of more than 200 mg/dL in a nonstressed, ambulatory subject supports the diagnosis of Diabetes Mellitus. PERFORMED BY: [address] [place] [address] PATHOLOGIST TUBE WINDER HAND ALINA PADILLA M.D. Performed By: #### GLULS ### # Point of Care testing , GLUCOSE POCT GLUCOMETERS Collected: 03/23/2025 6:09 A M Status: F Source: [facility] TYPE CODE TESTS RESULT OUT OF RANGE REFERENCE UNITS LAB GLUPOC Glucose Poc Glucometers 161 mg/dL Result Comment: Random Gluco se Reference Range is dependent on time and content of last meal. Glucose of more than 200 mg/dL in a nonstressed, ambulatory subject supports the diagnosis of Diabetes Mellitus. PERFORMED BY: [address] [place] [address] PATHOLOGIST TUBE WINDER HAND ALINA PADILLA M.D. Performed By: #### GLULS ### # Point of Care testing , COMPLETE BLOOD COUNT AUTO DIFF Collected: 03/23/2025 3:50 AM Status: F Source: F [facility] TYPE CODE TESTS RESULT OUT OF RANGE REFERENCE UNITS LAB WBC White Blood Count 13.4 High 3.8-11.6 [CFU]/mL LAB UNWBC Uncorrected WBC 13.4 High 3.8-11.6 10*3/uL LAB RBC Red Blood Count 2.93 Low 3.60-5.00 10*6/u L LAB HGB Hemoglobin 9.5 Low 11.8-15.4 g/dL LAB HCT Hematocrit 29.4 Low 34.0-46.4 % LAB MCV Mean Corpuscular Volume 100.3 High 80-100 fL LAB MCH Mean Corpuscular Hemoglobin 32.4 Normal 24.7-34.3 pg LAB MCHC Mean Corpuscular HGB Conc 32.3 Normal 32.0-35.0 g/dL LAB RDW Red Cell Distribution Width 15.9 High 11.9-15.3 % LAB PLT Platelet Count 171 Normal 150-450 10*3/uL LAB MPV Mean Platelet Volume 10.1 Normal 6.3-10.7 fL LAB NE% Neutrophils % (Auto) 81.2 . % LAB LY% Lymphocytes % (Auto) 10.5 . % LAB MO% Monocytes % (Auto) 8.0 . % LAB EO% Eosinophils % (Auto) 0.0 . % LAB BA% Basophils % (Auto) 0.3 . % LAB NRBC% NRBC% 0.1 Normal 0-0.5 /100{WBC} LAB NE# Neutrophils # (Auto) 10.9 High 1.8-7.7 10*3/uL LAB LY# Lymphocytes # (Auto) 1.4 Normal 1.00-4.8 10*3/uL LAB MO# Monocytes # (Auto) 1.1 High 0.0-0.8 10*3/uL LAB EO# Eosinophils # (Auto) 0.0 Normal 0.0-0.45 10*3/uL LAB BA# Basophils # (Auto) 0.0 Normal 0.0-0.2 10*3/uL Result Comment: PERFORMED BY : [place] [address] PATHOLOGIST TUBE WINDER HAND ALINA PADILLA M.D. Performed By: #### CBC, CMP, PAB #### [address] COMPREHENSIVE METABOLIC PANEL Collected: 03/23/2025 3 :50 AM Status: F Source: [facility] TYPE CODE TESTS RESULT OUT OF RANGE REFERENCE UNITS LAB GLU Glucose 163 High 70-100 mg/dL Result Comment: Random Gluco se Reference Range is dependent on time and content of last meal. Glucose of more than 200 mg/dL in a nonstressed, ambulatory subject supports the diagnosis of Diabetes Mellitus. ADA recommended reference range LAB BUN Blood Urea Nitrogen 45 High 7-25 mg/d L LAB CREATT Creatinine 1.89 High 0.60-1.20 mg/dL LAB GFReNR Estimated GFR 26.696 LAB NA Sodium 136 Normal 136-145 mmol/L LAB K Potassium 4.5 Normal 3.5-5.1 mmol/L LAB CL Chloride 101 Normal 98-107 mmol/L LAB CO2 Carbon Dioxide 27.3 Normal 21.0-31.0 mmol/L LAB GAP Anion Gap 12.2 Normal 6.0-15.0 LAB CA Calcium 8.5 Low 8.6-10.3 mg/dL LAB TP Total Protein 6.1 Low 6.4-8.9 g/dL LAB ALB Albumin Level 3.2 Low 3.5-5.7 g/dL LAB GLOB Globulin 2.9 g/dL LAB AGRATIO Albumin/Globulin Ratio 1.1 LAB BILIT Bilirubin,Total 0.2 Low 0.3-1.0 mg/dL LAB AST Aspartate Amino Transferase 15 Normal 13-39 U/L LAB ALT Alanine Aminotransferase <3 Low 7-52 U/L LAB ALP Alkaline Phosphatase 41 Normal 34-104 U/L LAB CRCLPHA Creatinine Clr C alc Pharmacy 21.32 Performed By: #### CBC, CMP, PAB #### [facility] [address] PREALBUMIN Collected: 3:50 AM Status: F Source: [facility] TYPE CODE TESTS RESULT OUT OF RANGE REFERENCE UNITS LAB PAB Prealbumin 16.6 Low 17.0-34.0 mg/dL Result Comment: PERFORMED BY : [place] [address] PATHOLOGIST TUBE WINDER HAND ALINA PADILLA M.D. Performed By: #### CBC, CMP, PAB #### [facility] [address] GLUCOSE POCT GLUCOMETERS Collected: 03/22/2025 9:02 P M Status: F Source: [facility] TYPE CODE TESTS RESULT OUT OF RANGE REFERENCE UNITS LAB GLUPOC Glucose Poc Glucometers 311 mg/dL Result Comment: Random Gluco se Reference Range is dependent on time and content of last meal. Glucose of more than 200 mg/dL in a nonstressed, ambulatory subject supports the diagnosis of Diabetes Mellitus. PERFORMED BY: [address] [place] [place] [address] PATHOLOGIST TUBE WINDER HAND ALINA PADILLA M.D. Performed By: #### GLULS ### # Point of Care testing , GLUCOSE POCT GLUCOMETERS Collected: 03/22/2025 6:22 P M Status: F Source: [facility] TYPE CODE TESTS RESULT OUT OF RANGE REFERENCE UNITS LAB GLUPOC Glucose Poc Glucometers 377 mg/dL Result Comment: Random Gluco se Reference Range is dependent on time and content of last meal. Glucose of more than 200 mg/dL in a nonstressed, ambulatory subject supports the diagnosis of Diabetes Mellitus. LAB COMM1 Commemt1 Glu2: Cleaned Meter Result Comment: PERFORMED BY : [address] [address] PATHOLOGIST TUBE WINDER HAND ALINA PADILLA M.D. Performed By: #### GLULS ### # Point of Care testing , GLUCOSE POCT GLUCOMETERS Collected: 03/22/2025 4:24 P M Status: F Source: [facility] TYPE CODE TESTS RESULT OUT OF RANGE REFERENCE UNITS LAB GLUPOC Glucose Poc Glucometers 456 High Off Scale mg/dL Result Comment: Random Gluco se Reference Range is dependent on time and content of last meal. Glucose of more than 200 mg/dL in a nonstressed, ambulatory subject supports the diagnosis of Diabetes Mellitus. LAB COMM1 Commemt1 Result Comment: Glu2: WILL N OTLIVE HAMMONDS/RN PERFORMED BY: [address] [address] PATHOLOGIST TUBE WINDER HAND ALINA PADILLA M.D. Performed By: #### GLULS ### # Point of Care testing , GLUCOSE POCT GLUCOMETERS Collected: 03/22/2025 4:22 P M Status: F Source: [facility] TYPE CODE TESTS RESULT OUT OF RANGE REFERENCE UNITS LAB GLUPOC Glucose Poc Glucometers 419 High Off Scale mg/dL Result Comment: Random Gluco se Reference Range is dependent on time and content of last meal. Glucose of more than 200 mg/dL in a nonstressed, ambulatory subject supports the diagnosis of Diabetes Mellitus. LAB COMM1 Commemt1 Result Comment: Glu2: WILL N OTIFY /MEDICAL RADIATION THERAPIST COMM2 Commemt2 Will Repeat Test Result Comment: PERFORMED BY : [address] [place] [address] PATHOLOGIST TUBE WINDER HAND ALINA PADILLA M.D. Performed By: #### GLULS ### # Point of Care testing , GLUCOSE POCT GLUCOMETERS Collected: 03/22/2025 11:54 AM Status: F Source: [facility] TYPE CODE TESTS RESULT OUT OF RANGE REFERENCE UNITS LAB GLUPOC Glucose Poc Glucometers 378 mg/dL Result Comment: Random Gluco se Reference Range is dependent on time and content of last meal. Glucose of more than 200 mg/dL in a nonstressed, ambulatory subject supports the diagnosis of Diabetes Mellitus. PERFORMED BY: [address] [place] [address] PATHOLOGIST TUBE WINDER HAND ALINA PADILLA M.D. Performed By: #### GLULS ### # Point of Care testing , GLUCOSE POCT GLUCOMETERS Collected: 03/22/2025 8:25 A M Status: F Source: [facility] TYPE CODE TESTS RESULT OUT OF RANGE REFERENCE UNITS LAB GLUPOC Glucose Poc Glucometers 340 mg/dL Result Comment: Random Gluco se Reference Range is dependent on time and content of last meal. Glucose of more than 200 mg/dL in a nonstressed, ambulatory subject supports the diagnosis of Diabetes Mellitus. PERFORMED BY: [address] [place] [address] PATHOLOGIST TUBE WINDER HAND ALINA PADILLA M.D. Performed By: #### GLULS ### # Point of Care testing , COMPLETE BLOOD COUNT AUTO DIFF Collected: 03/22/2025 6:44 AM Status: F Source: F [facility] TYPE CODE TESTS RESULT OUT OF RANGE REFERENCE UNITS LAB WBC White Blood Count 11.8 High 3.8-11.6 [CFU]/mL LAB UNWBC Uncorrected WBC 11.8 High 3.8-11.6 10*3/uL LAB RBC Red Blood Count 3.11 Low 3.60-5.00 10*6/u L LAB HGB Hemoglobin 10.2 Low 11.8-15.4 g/dL LAB HCT Hematocrit 31.2 Low 34.0-46.4 % LAB MCV Mean Corpuscular Volume 100.3 High 80-100 fL LAB MCH Mean Corpuscular Hemoglobin 32.8 Normal 24.7-34.3 pg LAB MCHC Mean Corpuscular HGB Conc 32.7 Normal 32.0-35.0 g/dL LAB RDW Red Cell Distribution Width 15.3 Normal 11.9-15.3 % LAB PLT Platelet Count 178 Normal 150-450 10*3/uL LAB MPV Mean Platelet Volume 9.5 Normal 6.3-10.7 fL LAB NE% Neutrophils % (Auto) 83.5 . % LAB LY% Lymphocytes % (Auto) 9.2 . % LAB MO% Monocytes % (Auto) 7.1 . % LAB EO% Eosinophils % (Auto) 0.0 . % LAB BA% Basophils % (Auto) 0.2 . % LAB NRBC% NRBC% 0.1 Normal 0-0.5 /100{WBC} LAB NE# Neutrophils # (Auto) 9.8 High 1.8-7.7 10*3/uL LAB LY# Lymphocytes # (Auto) 1.1 Normal 1.00-4.8 10*3/uL LAB MO# Monocytes # (Auto) 0.8 Normal 0.0-0.8 10*3/uL LAB EO# Eosinophils # (Auto) 0.0 Normal 0.0-0.45 10*3/uL LAB BA# Basophils # (Auto) 0.0 Normal 0.0-0.2 10*3/uL Result Comment: PERFORMED BY : [place] [address] PATHOLOGIST TUBE WINDER HAND ALINA PADILLA M.D. Performed By: #### BMP, CBC #### [address] BASIC METABOLIC PANEL Collected: 03/22/2025 6:44 AM Status: F Source: [facility] TYPE CODE TESTS RESULT OUT OF RANGE REFERENCE UNITS LAB GLU Glucose 374 High 70-100 mg/dL Result Comment: Random Gluco se Reference Range is dependent on time and content of last meal. Glucose of more than 200 mg/dL in a nonstressed, ambulatory subject supports the diagnosis of Diabetes Mellitus. ADA recommended reference range LAB BUN Blood Urea Nitrogen 40 High 7-25 mg/dL LAB CREATT Creatinine 1.89 High 0.60-1.20 mg/dL LAB GFReNR Estimated GFR 26.696 LAB NA Sodium 132 Low 136-145 mmol/L LAB K Potassium 4.7 Normal 3.5-5.1 mmol/L LAB CL Chloride 96 Low 98-107 mmol/L LAB CO2 Carbon Dioxide 28.4 Normal 21.0-31.0 mmol/L LAB GAP Anion Gap 12.3 Normal 6.0-15.0 LAB CA Calcium 8.1 Low 8.6-10.3 mg/dL LAB CRCLPHA Creatinine Clr Calc Pharmacy 21.33 Result Comment: PERFORMED BY : [place] [address] PATHOLOGIST TUBE WINDER HAND ALINA PADILLA M.D. Performed By: #### BMP, CBC #### [address] GLUCOSE POCT GLUCOMETERS Collected: 03/21/2025 9:05 P M Status: F Source: [facility] TYPE CODE TESTS RESULT OUT OF RANGE REFERENCE UNITS LAB GLUPOC Glucose Poc Glucometers 442 High Off Scale mg/dL Result Comment: Random Gluco se Reference Range is dependent on time and content of last meal. Glucose of more than 200 mg/dL in a nonstressed, ambulatory subject supports the diagnosis of Diabetes Mellitus. LAB COMM1 Commemt1 Result Comment: Glu2: Result Not Confirmed PERFORMED BY: [place] [address] PATHOLOGIST TUBE WINDER HAND ALINA PADILLA M.D. Performed By: #### GLULS ### # Point of Care testing , GLUCOSE POCT GLUCOMETERS Collected: 03/21/2025 9:03 P M Status: F Source: [facility] TYPE CODE TESTS RESULT OUT OF RANGE REFERENCE UNITS LAB GLUPOC Glucose Poc Glucometers 428 High Off Scale mg/dL Result Comment: Random Gluco se Reference Range is dependent on time and content of last meal. Glucose of more than 200 mg/dL in a nonstressed, ambulatory subject supports the diagnosis of Diabetes Mellitus. LAB COMM1 Commemt1 Result Comment: Glu2: Will R epeat Test PERFORMED BY: [address] [address] PATHOLOGIST TUBE WINDER HAND ALINA PADILLA M.D. Performed By: #### GLULS ### # Point of Care testing , XR LOW PELVIS W/LT X-TABLE HIP Observed: 03/21/2025 4:25 PM Status: COMPLETED Source: [facility] Main [address] [address] XRay Report Signed Patient: Lexi Tatum MR#: [id number] : 1945 Acct:[id number] Age/Sex: 79 / F ADM Date: 03/21/25 Loc: [place] Room: Type: [facility] Attending Dr: Da Lozano II, MD Copies to: Da Lozano MD Ordering Provider: Da Lozano MD Date of Service: 03/21/25 XR/XR low pelvis w/LT x-table hip: LT TOTAL HIP Left hip 2 views. Reason for exam: Postop left LIVIER. FINDINGS: Examination is suboptimal due to body habitus. Left LIVIER without radiographic complication. 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 XR/XR low pelvis w/LT x-table hip IMPRESSION: No hardware complication is seen. Impression dictated by: Earnest Iraheta Jr., D.OPaul 03/21/2025 4:26 PM Dictation Location: [place] [address] Transcribed By: [facility] 03/21/251625 Dictated By: Earnest Iraheta Jr, DO 03/21/25 162 Signed By: <Electronically signed by Earnest Iraheta Jr, DO in OV> 03/21/25 1626 GLUCOSE POCT GLUCOMETERS Collected: 03/21/2025 3:54 P M Status: F Source: [facility] TYPE CODE TESTS RESULT OUT OF RANGE REFERENCE UNITS LAB GLUPOC Glucose Poc Glucometers 188 mg/dL Result Comment: Random Gluco se Reference Range is dependent on time and content of last meal. Glucose of more than 200 mg/dL in a nonstressed, ambulatory subject supports the diagnosis of Diabetes Mellitus. PERFORMED BY: [place] [address] PATHOLOGIST TUBE WINDER HAND ALINA PADILLA M.D. Performed By: #### GLULS ### # Point of Care testing , XR HIP LT 1V Observed: 03/21/2025 3:43 PM Status: COMPLETED Source: [place] [id number] XRay Report Signed Patient: Lexi Tatum MR#: [id number] : 1945 Acct:[id number] Age/Sex: 79 / F ADM Date: 03/21/25 Loc: [place] Room: Type: [facility] Attending Dr: Da Lozano II, MD Copies to: Da Lozano MD Ordering Provider: Da Lozano MD Date of Service: 03/21/25 XR/XR hip LT 1V: LEFT TOTAL ANTERIOR REPLACEMENT Intraoperative study. Reason for exam: Left LIVIER placement Findings: 8 images were obtained intraoperatively. Hardware was placed Cumulative Air Kerma in mGy: 12.6 mGy XR/XR hip LT 1V Impression: Intraoperative study. Impression dictated by: Earnest Iraheta Jr., D.OPaul 03/21/2025 3:43 PM Dictation Location: [facility] Transcribed By: [facility] 03/21/25 1543 Dictated By: Earnest Iraheta Jr, DO 03/21/25 1543 Signed By: <Electronically signed by Earnest Iraheta Jr, DO in OV> 03/21/25 1543 L Observed: 03/21/2025 1:30 PM Status: F Source: [facility] ----- ------- Specimen: [id number] Received: 03/22/25 Status: BENIGNO Leal Num: [id number] Spec Type: Surgical Subm Dr: Da Lozano MD Tissues: A Femoral Head - Other than Fracture (L HIP BONE AND TISSUE) Procedures: HE/2, Gross/Micro L3, Decalcification ----- ------- Age/ Patient Sex Location Account Attending Physician ----- ------- Lexi Tatum 79/F [place] [id number] Da Lozano MD ----- ------- SPEC NUM: [id number] RECD: 03/22/25 STATUS: BENIGNO LEAL NUM: [id number] CARLOS: 03/21/[address] [facility] [address]: Da Lozano MD ENTERED: 03/22/[address] [facility] [address]: ANASTACIA TYPE: Surgical DEPT: S ENTERED BY: [id number] RECV BY: [id number] ORDERED: HE/2, Gross/Micro L3, Decalcification ORDERED: HE/2, Gross/Micro L3, Decalcification Pathological Diagnosis A. 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 The articular surfaces are remarkable for granular degeneration and eburnation. The subarticular capsular surface ranges from less than 0.1 to 0.3 cm in thickness. The medullary bone is mendez, firm and uniform. Nuclear Physics Teacher sections are submitted in A1?A2 after decalcification. (2, , [id number] A)MARIANA ----- ------- Specimen: [id number] Received: 03/22/25 Status: BENIGNO Leal Num: [id number] Spec Type: Surgical Subm Dr: Da Lozano MD Tissues: A Femoral Head - Other than Fracture (L HIP BONE AND TISSUE) Procedures: HE/2, Gross/Micro L3, Decalcification ----- ------- Patient: Lexi Tatum Nestor [id number] (Continued) ----- ------- Specimen: [id number] Received: 03/22/25 (Continued) Signed (signature on file) Tomi Jean Jr., MD 03/25/25 1548 ----- ------- Specimen: [id number] Received: 03/22/25 Status: BENIGNO Leal Num: [id number] Spec Type: Surgical Subm Dr: Da Lozano MD Tissues: A Femoral Head - Other than Fracture (L HIP BONE AND TISSUE) Procedures: HE/2, Gross/Micro L3, Decalcification ----- ------- Patient: Lexi Tatum [id number] (Continued) ----- ------- Specimen: [id number] Received: 03/22/25 (Continued) CPT Codes 58794, 68221 ----- ------- ----- ------- Specimen: [id number] Received: 03/22/25 Status: BENIGNO Leal Num: [id number] Spec Type: Surgical Subm Dr: Da Lozano MD Tissues: A Femoral Head - Other than Fracture (L HIP BONE AND TISSUE) Procedures: HE/2, Gross/Micro L3, Decalcification ----- ------- Patient: Lexi Tatum [id number] (Continued) ----- ------- Signed (signature on file) Tomi Jean Jr., MD 03/25/25 1548 GLUCOSE POCT GLUCOMETERS Collected: 03/21/2025 11:10 AM Status: F Source: [facility] TYPE CODE TESTS RESULT OUT OF RANGE REFERENCE UNITS LAB GLUPOC Glucose Poc Glucometers 132 mg/dL Result Comment: Random Gluco se Reference Range is dependent on time and content of last meal. Glucose of more than 200 mg/dL in a nonstressed, ambulatory subject supports the diagnosis of Diabetes Mellitus. PERFORMED BY: [facility] [address] [place] [address] PATHOLOGIST TUBE WINDER HAND ALINA PADILLA M.D. Performed By: #### GLULS ### # Point of Care testing , XR HIP LT MIN 2V(W/WO PELVIS)* Observed: 03/09/2025 4:44 PM Status: COMPLETED Source: [facility] [address] [place] [address] XRay Report Signed Patient: Lexi Tatum MR#: [id number] : 1945 Acct:[id number] Age/Sex: 79 / F ADM Date: 03/09/25 Loc: [facility] Room: Type: [facility] Attending Dr: Da Lozano II, MD [...] STUDY.. Impression dictated by: Earnest Iraheta Jr., D.OPaul 03/09/2025 4:45 PM Dictation Location: [place] [address] Transcribed By: [facility] 03/09/251644 Dictated By: Earnest Iraheta Jr, DO 03/09/251643 Signed By: <Electronically signed by Earnest Iraheta Jr, DO in OV> 03/09/251644 DIPSTICK AND MICROSCOPIC Collected: 3:20 PM Status: F Source: [facility] Order Comment: Name Collecti on Type:: Clean-Voided Midstream TYPE CODE TESTS RESULT OUT OF RANGE REFERENCE UNITS LAB UCOL Color,Urine Light-Mckinley Abnormal Alert Yellow LAB UAPP Appearance,Ur ine Turbid Abnormal Alert Clear LAB USG Specificy Sutton,Urine 1.012 Normal 1.001-1.030 LAB UPH pH,Urine 7.0 Normal 5.0-9.0 LAB ULE Leukocyte Esterase,Urin e 4+ Negative LAB UNIT Nitrite,Urine Negative Negative LAB UPRO Protein,Urine 100 Negative mg/dL LAB UGL Glucose,Urine (UA) Normal Normal mg/dL LAB UKET Ketones,Urine Negative Negative LAB UURO Urobilinogen, Urine Normal Normal mg/dL LAB UBIL Bilirubin,Uri ne Negative Negative LAB UBLD Occult Blood,Urine 1+ Negative Result Comment: PERFORMED BY : [address] [address] PATHOLOGIST TUBE W[employer] HAND ALINA PADILLA M.D. LAB URBC RBC,Urine 10-19 0-4 [HPF] LAB UWBC WBC,Urine Innumerable 0-4 [HPF] LAB UCLUMPWBC WBC CLUMP, Urine Many None Seen [LPF] LAB USQEPI Squamous Epithelial Cell,Urine 10-19 0-2 [HPF] LAB UNONSQEPI Non-Squamous Epithelial Cell,U 3-4 None Seen [HPF] LAB UBACT Bacteria,Urin e 2+ None Seen [HPF] LAB UHYALC Hyaline Casts,Urine None 0-8 [LPF] LAB MUCUS Mucus,Urine Rare [LPF] Result Comment: PERFORMED BY : [place] [address] PATHOLOGIST T[employer] HAND ALINA PADILLA M.D. Performed By: #### NAOMY VELASCO #### [address] [address] [facility] URINE CULTURE Observed: 03/03/2025 3:20 PM Status: F Source: [facility] Urine Culture Results >100,000 col/ml Mixed Bacterial Skin Contaminants 2 Days PERFORMED BY: [address] [address] PATHOLOGIST T[employer] ALINA PADILLA M.D. Performed By: #### CUUNAOMY #### [facility] [address] COMPLETE BLOOD COUNT AUTO DIFF Collected: 03/03/2025 2:30 PM Status: F Source: F [facility] TYPE CODE TESTS RESULT OUT OF RANGE REFERENCE UNITS LAB WBC White Blood Count 10.2 Normal 3.8-11.6 [CFU]/mL LAB UNWBC Uncorrected WBC 10.2 Normal 3.8-11.6 10*3/uL LAB RBC Red Blood Count 3.92 Normal 3.60-5.00 10*6/u L LAB HGB Hemoglobin 12.8 Normal 11.8-15.4 g/dL LAB HCT Hematocrit 39.5 Normal 34.0-46.4 % LAB MCV Mean Corpuscular Volume 100.8 High 80-100 fL LAB MCH Mean Corpuscular Hemoglobin 32.8 Normal 24.7-34.3 pg LAB MCHC Mean Corpuscular HGB Conc 32.5 Normal 32.0-35.0 g/dL LAB RDW Red Cell Distribution Width 16.2 High 11.9-15.3 % LAB PLT Platelet Count 220 Normal 150-450 10*3/uL LAB MPV Mean Platelet Volume 9.2 Normal 6.3-10.7 fL LAB NE% Neutrophils % (Auto) 67.0 . % LAB LY% Lymphocytes % (Auto) 21.0 . % LAB MO% Monocytes % (Auto) 8.4 . % LAB EO% Eosinophils % (Auto) 2.8 . % LAB BA% Basophils % (Auto) 0.8 . % LAB NRBC% NRBC% 0.1 Normal 0-0.5 /100{WBC} LAB NE# Neutrophils # (Auto) 6.8 Normal 1.8-7.7 10*3/uL LAB LY# Lymphocytes # (Auto) 2.1 Normal 1.00-4.8 10*3/uL LAB MO# Monocytes # (Auto) 0.9 High 0.0-0.8 10*3/uL LAB EO# Eosinophils # (Auto) 0.3 Normal 0.0-0.45 10*3/uL LAB BA# Basophils # (Auto) 0.1 Normal 0.0-0.2 10*3/uL Result Comment: PERFORMED BY : [place] [address] PATHOLOGIST TU[employer] W[employer] HAND ALINA PADILLA M.D. Performed By: #### ANGUS BMP #### [address] #### FRUC #### [facility] , BASIC METABOLIC PANEL Collected: 03/03/2025 2:30 PM Status: F Source: [facility] TYPE CODE TESTS RESULT OUT OF RANGE REFERENCE UNITS LAB GLU Glucose 125 High 70-100 mg/dL Result Comment: Random Gluco se Reference Range is dependent on time and content of last meal. Glucose of more than 200 mg/dL in a nonstressed, ambulatory subject supports the diagnosis of Diabetes Mellitus. ADA recommended reference range LAB BUN Blood Urea Nitrogen 46 High 7-25 mg/dL LAB CREATT Creatinine 1.95 High 0.60-1.20 mg/dL LAB GFReNR Estimated GFR 25.714 LAB NA Sodium 138 Normal 136-145 mmol/L LAB K Potassium 4.9 Normal 3.5-5.1 mmol/L LAB CL Chloride 100 Normal 98-107 mmol/L LAB CO2 Carbon Dioxide 32.6 High 21.0-31.0 mmol/L LAB GAP Anion Gap 10.3 Normal 6.0-15.0 LAB CA Calcium 9.6 Normal 8.6-10.3 mg/dL Result Comment: PERFORMED BY : [place] [address] PATHOLOGIST TU[employer] W[employer] HAND ALINA PADILLA M.D. Performed By: #### ANGUS, BMP #### [address] #### FRUC #### [facility] , FRUCTOSAMINE Collected: 2:30 PM Status: F Source: [facility] TYPE CODE TESTS RESULT OUT OF RANGE REFERENCE UNITS LAB FRUC Fructosamine 280 0-285 umol/L Result Comment: Published re ference interval for apparently healthy subjects between age 20 and 60 is 205 - 285 umol/L and in a poorly controlled diabetic population is 228 - 563 umol/L with a mean of 396 umol/L. Performed at: [facility] [address] [id number] [employer] Librarian: Mohan Talbert PhD, Phone: [phone] PERFORMED BY: [place] [address] PATHOLOGIST TUBE W[employer] HAND ALINA PADILLA M.D. Performed By: #### CBC, BMP #### [place] [address] [place] #### FRUC #### [facility] , ECG 12 LEAD ECG Observed: 03/03/2025 2:17 PM Status: COMPLETED Source: [facility] [place] [address] [place] [address] Electrocardiograph Report Signed Patient: Lexi Tatum MR#: [id number] : 1945 Acct:[id number] Age/Sex: 79 / F ADM Date: 03/03/25 Loc: Room: Type: [facility] Attending Dr: Da Lozano II, MD Ordering Provider: Da Lozano MD Date of Service: 03/03/25 ECG/ECG 12 lead ECG: preop Copies to: Test Reason : Blood Pressure : */* mmHG Vent. 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) Anterolateral infarct (cited on or before 16-Nov-2016) Abnormal ECG When compared with ECG of 23-Jan-2024 10:07, Questionable change in initial forces of Septal leads Questionable change in initial forces of Lateral leads T wave inversion less evident in Inferior leads Confirmed by FARRAH FRANKS MD ([id number]) on 03/03/2025 3:24:57 PM Referred By: Electronically Signed By: FARRAH FRANKS MD Transcribed By: MUS Signed By Farrah Franks MD 0 03/03/25 1524 URINE CULTURE Observed: 11/15/2024 3:30 PM Status: F Source: [facility] 30,000 colonies/ml mixed bacterial skin contaminants 2 Days PERFORMED BY: [place] [address] PATHOLOGIST TUBE WINDER HAND RADHA DURAN M.D. Performed By: #### CUU #### [facility] [address] [place] [address] XR KUB Observed: 10/22/2024 11:12 AM Status: COMPLETED Source: [facility] Main [place] [address] [place] [address] XRay Report Signed Patient: Lexi Tatum MR#: [id number] : 1945 Acct:[id number] Age/Sex: 79 / F ADM Date: 10/22/24 Loc: [place] Room: Type: [facility] Attending Dr: Yaniv Natarajan MD Copies to: Yaniv Natarajan MD Ordering Provider: Yaniv Natarajan MD Date of Service: 10/22/24 XR/XR KUB: STENT CHANGE Intraoperative study. Reason for exam: Stent exchange. Findings: 5 images were obtained intraoperatively. Ureteral stents were exchanged. Cumulative Air Kerma in mGy: 31 mGy XR/XR KUB Impression: Intraoperative study. Impression dictated by: Earnest Iraheta Jr., D.OPaul10/22/2024 11:14 AM Dictation Location: [place] [address] Transcribed By: [facility] 10/22/24 1114 Dictated By: Earnest Iraheta Jr, DO 10/22/24 1112 Signed By: <Electronically signed by Earnest Iraheta Jr, DO in OV> 10/22/24 1114 GLUCOSE POCT GLUCOMETERS Collected: 10/22/2024 9:47 A M Status: F Source: [facility] TYPE CODE TESTS RESULT OUT OF RANGE REFERENCE UNITS LAB GLUPOC Glucose Poc Glucometers 172 mg/dL Result Comment: Random Gluco se Reference Range is dependent on time and content of last meal. Glucose of more than 200 mg/dL in a nonstressed, ambulatory subject supports the diagnosis of Diabetes Mellitus. LAB COMM1 Commemt1 Glu2: Cleaned Meter Result Comment: PERFORMED BY : [place] [address] PATHOLOGIST TUBE WINDER HAND RADHA DURAN M.D. Performed By: #### GLULS ### # Point of Care testing , XR KUB Observed: 10/22/2024 8:54 AM Status: COMPLETED Source: [facility] [facility] Main [place] [id number] XRay Report Signed Patient: Lexi Tatum MR#: [id number] : 1945 Acct:[id number] Age/Sex: 79 / F ADM Date: 10/22/24 Loc: [place] Room: Type: [facility] Attending Dr: Yaniv Natarajan MD Copies to: Yaniv Natarajan MD Ordering Provider: Yaniv Natarajan MD Date of Service: 10/22/24 XR/XR KUB: Pre Op KUB: CLINICAL INFORMATION: Preop. Hydronephrosis. COMPARISON: Intraoperative study 2024 FINDINGS: Bilateral double-J ureteral stents are identified. Presumed vascular calcifications are seen projecting over the renal shadows. No definitive ureteral calculus is seen. Presumed p hleboliths are seen within the pelvis. No bowel obstruction or free air. Osseous structures demonstrate degenerative change. XR/XR KUB IMPRESSION: DOUBLE J URETERAL STENTS ARE SEEN BILATERALLY WITHOUT DEFINITIVE URINARY TRACT CALCULUS. Impression dictated by: Earnest Iraheta Jr., D.O.10/22/2024 8:55 AM Dictation Location: [place] [address] Transcribed By: [facility] 10/22/24854 Dictated By: Earnest Iraheta Jr, DO 10/22/2454 Signed By: <Electronically signed by Earnest Iraheta Jr, DO in OV> 10/22/[address] GLUCOSE POCT GLUCOMETERS Collected: 10/22/2024 6:57 A M Status: F Source: [facility] TYPE CODE TESTS RESULT OUT OF RANGE REFERENCE UNITS LAB GLUPOC Glucose Poc Glucometers 217 mg/dL Result Comment: Random Gluco se Reference Range is dependent on time and content of last meal. Glucose of more than 200 mg/dL in a nonstressed, ambulatory subject supports the diagnosis of Diabetes Mellitus. LAB COMM1 Commemt1 Result Comment: Glu2: WILL N OTIFY DR/MEDICAL RADIATION THERAPIST COMM2 Commemt2 Cleaned Meter Result Comment: PERFORMED BY : [place] [address] PATHOLOGIST TUBE WINDER HAND RADHA DURAN M.D. Performed By: #### GLULS ### # Point of Care testing , URINE CULTURE Observed: 09/26/2024 10:55 PM Status: F Source: [facility] ORGANISM: Aerococcus urinae (O:AERURI) Cobden Count >100,000 Organism Comments Organism not Routinely Tested for Susceptibilities Aerococcus urinae and Aerococcus viridans have been described as susceptible to penicillin, amoxicillin, piperacillin, cefepime, rifampin, and nitrofurantoin, and resistant to sulfonamides. PERFORMED BY: [place] [address] PATHOLOGIST TUBE WINDER HAND RADHA DURAN M.D. Performed By: #### CUU #### [facility] [address] [place] [address] [place] PROTEIN CREAT RATIO UR RANDOM Collected : 07/15/2024 12:51 PM Status: F Source: [facility] TYPE CODE TESTS RESULT OUT OF RANGE REFERENCE UNITS LAB UCREA Creatinine, Urine (Random) 25.00 mg/dL Result Comment: No reference range established LAB UTPTT Protein, Urine (Random) 66 High 0-9 mg/dL LAB UTPCREAT Urine Protein/Crea tinine Ratio 2640 High 0-200 mg/g{Cre} Result Comment: PERFORMED BY : [place] [address] PATHOLOGIST TUBE WINDER HAND RADHA DURAN M.D. Performed By: #### PROCRERAT #### [facility] [address] [place] [address] [place] DIPSTICK AND MICROSCOPIC Collected: 08/2024 12:49 PM Status: F Source: [facility] Order Comment: Name Collecti on Type:: Voided TYPE CODE TESTS RESULT OUT OF RANGE REFERENCE UNITS LAB UCOL Color,Urine Colorless Yellow LAB UAPP Appearance,Ur ine Cloudy Abnormal Alert Clear LAB USG Specificy Sutton,Urine 1.009 Normal 1.001-1.030 LAB UPH pH,Urine 6.5 Normal 5.0-9.0 LAB ULE Leukocyte Esterase,Urin e 4+ High Negative LAB UNIT Nitrite,Urine Negative Negative LAB UPRO Protein,Urine 50 High Negative mg/dL LAB UGL Glucose,Urine (UA) Normal Normal LAB UKET Ketones,Urine Negative Negative LAB UURO Urobilinogen, Urine Normal Normal LAB UBIL Bilirubin,Uri ne Negative Negative LAB UBLD Occult Blood,Urine 1+ High Negative LAB URBC RBC,Urine 5 High 0-4 [HPF] LAB UWBC WBC,Urine Innumerable High 0-4 LAB UCLUMPWBC WBC CLUMP, Urine Many High None Seen LAB USQEPI Squamous Epithelial Cell,Urine 3 High 0-2 [HPF] LAB UBACT Bacteria,Urin e 2+ High None Seen LAB UHYALC Hyaline Casts,Urine 0 0-8 [LPF] LAB MUCUS Mucus,Urine Rare Result Comment: PERFORMED BY : [place] [address] PATHOLOGIST TUBE WINDER HAND RADHA DURAN M.D. Performed By: #### ANAYELI CHURCHILL, CUU #### [facility] [address] [place] [address] [place] URINE CULTURE Observed: 07/15/2024 12:49 PM Status: F Source: [facility] 75,000 colonies/ml mixed bacterial skin contaminants 2 Days PERFORMED BY: [address] [address] PATHOLOGIST TUBE WINDER HAND RAHDA DURAN M.D. Performed By: #### ANAYELI CHURCHILL, CUU #### [facility] [address] [place] [address] [facility] XR HIP LT MIN 2V(W/WO PELVIS)* Observed: 06/28/2024 3:42 PM Status: COMPLETED Source: [facility] Main [place] [id number] XRay Report Signed Patient: Lexi Tatum MR#: [id number] : 1945 Acct:[id number] Age/Sex: 79 / F ADM Date: 06/28/24 Loc: [place] Room: Type: [facility] Attending Dr: Da Lozano II, MD [...] PROCESS.. Impression dictated by: Earnest Iraheta Jr., DPaulOPaul06/28/2024 3:44 PM Dictation Location: [place] [address] Transcribed By: [facility] 06/28/24 1544 Dictated By: Earnest Iraheta Jr, DO 06/28/24 1542 Signed By: <Electronically signed by Earnest Iraheta Jr, DO in OV> 06/28/24 1544 HEMOGRAM CBC WITHOUT DIFF Collected: 06/28/2024 11:56 AM Status: F Source: [facility] TYPE CODE TESTS RESULT OUT OF RANGE REFERENCE UNITS LAB WBC White Blood Count 9.2 Normal 3.8-11.6 10*3/uL LAB RBC Red Blood Count 3.83 Normal 3.60-5.00 10*6/u L LAB HGB Hemoglobin 12.2 Normal 11.8-15.4 g/dL LAB HCT Hematocrit 37.6 Normal 34.0-46.4 % LAB MCV Mean Corpuscular Volume 98.3 Normal 80-100 fL LAB MCH Mean Corpuscular Hemoglobin 31.7 Normal 24.7-34.3 pg LAB MCHC Mean Corpuscular HGB Conc 32.3 Normal 32.0-35.0 g/dL LAB RDW Red Cell Distribution Width 15.9 High 11.9-15.3 % LAB PLT Platelet Count 229 Normal 150-450 10*3/uL LAB MPV Mean Platelet Volume 9.1 Normal 6.3-10.7 fL Result Comment: PERFORMED BY : [place] [address] PATHOLOGIST TUBE WINDER HAND RADHA DURAN M.D. Performed By: #### GENET SERUM , SPE W INTERPRET, KAPPA #### [facility] , #### [id number], [id number], FE and TIBC, RENAL, PTH, MG, URIC, ELIAS, CBCNO #### [facility] [address] [place], [place] [id number] [facility] PARATHYROID HORMONE INTACT Collected: 06/28/2024 11:5 6 AM Status: F Source: [facility] TYPE CODE TESTS RESULT OUT OF RANGE REFERENCE UNITS LAB PTH Parathyroid Hormone Intact 69.9 Normal 12-88 pg/mL Result Comment: PERFORMED BY : [place] [address] PATHOLOGIST TUBE WINDER HAND RADHA DURAN M.D. Performed By: #### GENET SERUM , SPE W INTERPRET, KAPPA #### [facility] , #### [id number], [id number], FE and TIBC, RENAL, PTH, MG, URIC, ELIAS, CBCNO #### [facility] [address] [place], [place] [address] [facility] RENAL FUNCTION PANEL Collected: 11:56 AM Status: F Source: [facility] TYPE CODE TESTS RESULT OUT OF RANGE REFERENCE UNITS LAB GLU Glucose 151 High 70-100 mg/dL Result Comment: Random Gluco se Reference Range is dependent on time and content of last meal. Glucose of more than 200 mg/dL in a nonstressed, ambulatory subject supports the diagnosis of Diabetes Mellitus. ADA recommended reference range LAB BUN Blood Urea Nitrogen 28 High 7-25 mg/dL LAB CREATT Creatinine 1.44 High 0.60-1.20 mg/dL LAB GFReNR Estimated GFR 36.998 mL/Min LAB NA Sodium 139 Normal 136-145 mmol/L LAB K Potassium 4.4 Normal 3.5-5.1 mmol/L LAB CL Chloride 101 Normal 98-107 mmol/L LAB CO2 Carbon Dioxide 29.5 Normal 21.0-31.0 mmol/L LAB GAP Anion Gap 12.9 Normal 6.0-15.0 meq/L LAB CA Calcium 9.3 Normal 8.6-10.3 mg/dL LAB PHOS Phosphorus 3.5 Normal 2.5-4.5 mg/dL LAB ALB Albumin Level 3.6 Normal 3.5-5.7 g/dL Performed By: #### GENET SERUM , SPE W INTERPRET, KAPPA #### [facility] , #### [id number], [id number], FE and TIBC, RENAL, PTH, MG, URIC, ELIAS, CBCNO #### [facility] [address] MAGNESIUM Collected: 11:56 AM Status: F Source: [facility] TYPE CODE TESTS RESULT OUT OF RANGE REFERENCE UNITS LAB MG Magnesium 1.9 Normal 1.9-2.7 mg/dL Performed By: #### GENET SERUM , SPE W INTERPRET, KAPPA #### [facility] , #### [id number], [id number], FE and TIBC, RENAL, PTH, MG, URIC, ELIAS, CBCNO #### [facility] [address] [place] [id number] [facility] URIC ACID Collected: 11:56 AM Status: F Source: [facility] TYPE CODE TESTS RESULT OUT OF RANGE REFERENCE UNITS LAB URIC Uric Acid 4.3 Normal 2.3-6.6 mg/dL Performed By: #### GENET SERUM , SPE W INTERPRET, KAPPA #### [facility] , #### [id number], [id number], FE and TIBC, RENAL, PTH, MG, URIC, ELIAS, CBCNO #### [facility] [address] IRON AND TIBC PROFILE Collected: 06/28/2024 11:56 AM Status: F Source: [facility] TYPE CODE TESTS RESULT OUT OF RANGE REFERENCE UNITS LAB FE Iron 66 Normal 50-212 ug/dL LAB TIBCT Total Iron Binding Capacity 270 Normal 255-450 ug/dL LAB FESAT% % Iron Saturation 24.4 Normal 20-50 % LAB TRANS Transferrin 193 Low 203-362 mg/dL Performed By: #### GENET SERUM , SPE W INTERPRET, KAPPA #### [facility] , #### [id number], [id number], FE and TIBC, RENAL, PTH, MG, URIC, ELIAS, CBCNO #### [facility] [address] [place] [id number] [facility] FERRITIN Collected: 11:56 AM Status: F Source: [facility] TYPE CODE TESTS RESULT OUT OF RANGE REFERENCE UNITS LAB ELIAS Ferritin 96.0 Normal 11.0-306.8 ng/mL Performed By: #### GENET SERUM , SPE W INTERPRET, KAPPA #### [facility] , #### [id number], [id number], FE and TIBC, RENAL, PTH, MG, URIC, ELIAS, CBCNO #### [facility] [address] VIT. B12/FOLATE PROFILE Collected: 06/13 11:56 AM Status: F Source: [facility] TYPE CODE TESTS RESULT OUT OF RANGE REFERENCE UNITS LAB B12 Vitamin B12 311 Normal 180-914 pg/mL LAB FOL Folate 20.4 >5.9 ng/mL Result Comment: Folate refer ence range: >5.9 ng/ml The WHO technical consultation on folate and vitamin b12 deficiencies has determined that folate concentrations less than 4 ng/ml are considered deficient. Performed By: #### GENET SERUM , SPE W INTERPRET, KAPPA #### [facility] , #### [id number], [id number], FE and TIBC, RENAL, PTH, MG, URIC, ELIAS, CBCNO #### [facility] [address] [place] [id number] [facility] VITAMIN D 25 HYDROXY TOTAL Collected: 08/29/2023 11:56 AM Status: F Source: [facility] TYPE CODE TESTS RESULT OUT OF RANGE REFERENCE UNITS LAB [id number] Vitamin D 25 Hydroxy Total 59.6 Normal 30-100 ng/mL Result Comment: VITAMIN D ST ATUS 25(OH)VITAMIN D RANGE (ng/mL) Deficient <20 Insufficient 20 to <30 Sufficient 30 to 100 Reference: Laney MF,Abhijeet NC, Stacey CHATMAN, et al. Evaluation,treatment, and prevention of vitamin D deficiency; an Endocrine Society clinical practice guideline. JCEM. 2010; 96(7):1911-30. PERFORMED BY: [place] [address] PATHOLOGIST TUBE WINDER HAND RADHA DURAN M.D. Performed By: #### GENET SERUM , SPE W INTERPRET, KAPPA #### [facility] , #### [id number], [id number], FE and TIBC, RENAL, PTH, MG, URIC, ELIAS, CBCNO #### [facility] [address] [place] [address] PROT ELECTROPHORESIS W/INTERP Collected : 06/28/2024 11:56 AM Status: F Source: [facility] TYPE CODE TESTS RESULT OUT OF RANGE REFERENCE UNITS LAB SPETP Total Protein, Serum 6.8 6.0-8.5 g/dL LAB SPEALB Albumin, Serum 3.1 2.9-4.4 g/dL LAB SPEA1G Oovfl-9-Yudo ulin 0.3 0.0-0.4 g/dL LAB SPEA2G Ehopv-5-Ihot ulin 1.3 High 0.4-1.0 g/dL LAB SPEBG Beta Globulin 1.1 0.7-1.3 g/dL LAB SPEGG Gamma Globulin 1.1 0.4-1.8 g/dL LAB SPEMS M-Rafiq Not Observed Not Observed LAB SPEGLOB Globulin, Total 3.7 2.2-3.9 g/dL LAB SPEAG A/G Ratio 0.8 0.7-1.7 LAB SPENOTE SPE-Note Comment . Result Comment: Protein elec trophoresis scan will follow via computer, mail, or blending machine operator delivery. LAB SPEINTERP SPE-Interpre tation Comment . Result Comment: The SPE apple selvin demonstrates elevation of regions containing acute phase proteins suggesting an acute/subacute inflammatory response. Some conditions in which this pattern has been observed include: bacterial, viral or parasitic infection; mechanical, physical or chemical trauma; and cardiac failure. The gamma globulin region is unremarkable and evidence of monoclonal protein is not apparent. Performed at: [facility] [employer] [id number] [employer] Librarian: Mohan Talbert PhD, Phone: [phone] Performed By: #### GENET SERUM , SPE W INTERPRET, KAPPA #### [facility] , #### [id number], [id number], FE and TIBC, RENAL, PTH, MG, URIC, ELIAS, CBCNO #### [address] IMMUNOFIXATION,SERUM Collected: 11:56 AM Status: F Source: [facility] TYPE CODE TESTS RESULT OUT OF RANGE REFERENCE UNITS LAB GENET SERUM. Immunofixation, Serum Comment: . Result Comment: Presence of monoclonal protein is unclear at this time. Suggest repeat in 3 to 6 months if clinically indicated. LAB IGG Immunoglobulin G 4347 673-4716 mg/dL LAB IGA Immunoglobulin A, Serum 394 64-422 mg/dL LAB IGM Immunoglobulin M, Serum 86 26-217 mg/dL Result Comment: Performed at : [facility] [employer] [id number] [employer] Librarian: Mohan Talbert PhD, Phone: [phone] Performed By: #### GENET SERUM , SPE W INTERPRET, KAPPA #### [facility] , #### [id number], [id number], FE and TIBC, RENAL, PTH, MG, URIC, ELIAS, CBCNO #### [facility] [address] [place] [id number] [facility] FREE K+L LT CHAINS, QN, S Collected: 11:56 AM Status: F Source: [facility] TYPE CODE TESTS RESULT OUT OF RANGE REFERENCE UNITS LAB KAPPA LTC Free [place] Light Chains, S 113.1 High 3.3-19.4 mg/L LAB LAMBDA LTC Free Lambda Light Chains, S 52.4 High 5.7-26.3 mg/L LAB KL RATIO. [place]/Lambda Ratio, S 2.16 High 0.26-1.65 Result Comment: Performed at : - [facility] [id number] [employer] Librarian: Mohan Talbert PhD, Phone: [phone] PERFORMED BY: [place] [address] PATHOLOGIST TUBE WINDER HAND RADHA DURAN M.D. Performed By: #### GENET SERUM , SPE W INTERPRET, KAPPA #### [facility] , #### [id number], [id number], FE and TIBC, RENAL, PTH, MG, URIC, ELIAS, CBCNO #### [facility] [address] [place] [address] [facility] A1C WITH ESTIMATED AVERAGE GLU Collected: 06/28/2024 11:55 AM Status: F Source: [facility] TYPE CODE TESTS RESULT OUT OF RANGE REFERENCE UNITS LAB .A1C Hemoglobin A1C 8.2 High 4.3-5.6 % Result Comment: Increased ri sk for diabetes: 5.7 - 6.4 diabetes: >6.4 glycemic control for adults with diabetes: <7.0 LAB eAG Estimated Average Glucose 189 mg/dL Result Comment: PERFORMED BY : [place] [address] PATHOLOGIST TUBE WINDER HAND RADHA DURAN M.D. Performed By: #### A1C WTH e A #### [place] [address] [place] DIPSTICK AND MICROSCOPIC Collected: 06/2024 11:25 AM Status: F Source: [facility] Order Comment: Name Collecti on Type:: Clean-Voided Midstream TYPE CODE TESTS RESULT OUT OF RANGE REFERENCE UNITS LAB UCOL Color,Urine Light-Mckinley Abnormal Alert Yellow LAB UAPP Appearance,Ur ine Turbid Abnormal Alert Clear LAB USG Specificy Sutton,Urine 1.010 Normal 1.001-1.030 LAB UPH pH,Urine 6.5 Normal 5.0-9.0 LAB ULE Leukocyte Esterase,Urin e 4+ High Negative LAB UNIT Nitrite,Urine Negative Negative LAB UPRO Protein,Urine 70 High Negative mg/dL LAB UGL Glucose,Urine (UA) Normal Normal LAB UKET Ketones,Urine Negative Negative LAB UURO Urobilinogen, Urine Normal Normal LAB UBIL Bilirubin,Uri ne Negative Negative LAB UBLD Occult Blood,Urine 1+ High Negative Result Comment: PERFORMED BY : [place] [address] PATHOLOGIST TUBE WINDER HAND RADHA DURAN M.D. LAB URBC RBC,Urine 20 High 0-4 [HPF] LAB UWBC WBC,Urine Innumerable High 0-4 LAB UCLUMPWBC WBC CLUMP, Urine Many High None Seen LAB USQEPI Squamous Epithelial Cell,Urine 20 High 0-2 [HPF] LAB UBACT Bacteria,Urin e 4+ High None Seen LAB UHYALC Hyaline Casts,Urine None 0-8 LAB MUCUS Mucus,Urine Rare Result Comment: PERFORMED BY : [place] [address] PATHOLOGIST TUBE WINDER HAND RADHA DURAN M.D. Performed By: #### ANAYELI CHURCHILL, CUU #### [facility] [address] [place] [address] URINE CULTURE Observed: 06/24/2024 11:25 AM Status: F Source: [facility] >100,000 colonies/ml mixed bacterial skin contaminants 2 Days PERFORMED BY: [place] [address] PATHOLOGIST TUBE WINDER HAND RADHA DURAN M.D. Performed By: #### ANAYELI CHURCHILL, CUU #### [facility] [address] [place] [address] COMPLETE BLOOD COUNT AUTO DIFF Collected: 06/24/2024 10:35 AM Status: F Source: [facility] TYPE CODE TESTS RESULT OUT OF RANGE REFERENCE UNITS LAB WBC White Blood Count 10.9 Normal 3.8-11.6 10*3/uL LAB UNWBC Uncorrected WBC 10.9 Normal 3.8-11.6 10*3/uL LAB RBC Red Blood Count 3.73 Normal 3.60-5.00 10*6/u L LAB HGB Hemoglobin 11.9 Normal 11.8-15.4 g/dL LAB HCT Hematocrit 36.3 Normal 34.0-46.4 % LAB MCV Mean Corpuscular Volume 97.5 Normal 80-100 fL LAB MCH Mean Corpuscular Hemoglobin 31.9 Normal 24.7-34.3 pg LAB MCHC Mean Corpuscular HGB Conc 32.7 Normal 32.0-35.0 g/dL LAB RDW Red Cell Distribution Width 15.6 High 11.9-15.3 % LAB PLT Platelet Count 252 Normal 150-450 10*3/uL LAB MPV Mean Platelet Volume 9.0 Normal 6.3-10.7 fL LAB NE% Neutrophils % (Auto) 68.0 . % LAB LY% Lymphocytes % (Auto) 19.4 . % LAB MO% Monocytes % (Auto) 7.5 . % LAB EO% Eosinophils % (Auto) 3.9 . % LAB BA% Basophils % (Auto) 1.2 . % LAB NRBC% NRBC% 0.0 Normal 0-0.5 /100{WBC} LAB NE# Neutrophils # (Auto) 7.4 Normal 1.8-7.7 10*3/uL LAB LY# Lymphocytes # (Auto) 2.1 Normal 1.00-4.8 10*3/uL LAB MO# Monocytes # (Auto) 0.8 Normal 0.0-0.8 10*3/uL LAB EO# Eosinophils # (Auto) 0.4 Normal 0.0-0.45 10*3/uL LAB BA# Basophils # (Auto) 0.1 Normal 0.0-0.2 10*3/uL Result Comment: PERFORMED BY : [place] [address] PATHOLOGIST TUBE WINDER HAND RADHA DURAN M.D. Performed By: #### CBC, ALB, BMP #### [address] #### FRUC #### [facility] , BASIC METABOLIC PANEL Collected: 2023 10:35 AM Status: F Source: [facility] TYPE CODE TESTS RESULT OUT OF RANGE REFERENCE UNITS LAB GLU Glucose 77 Normal 70-100 mg/dL Result Comment: Random Gluco se Reference Range is dependent on time and content of last meal. Glucose of more than 200 mg/dL in a nonstressed, ambulatory subject supports the diagnosis of Diabetes Mellitus. ADA recommended reference range LAB BUN Blood Urea Nitrogen 34 High 7-25 mg/dL LAB CREATT Creatinine 1.62 High 0.60-1.20 mg/dL LAB GFReNR Estimated GFR 32.121 mL/Min LAB NA Sodium 141 Normal 136-145 mmol/L LAB K Potassium 4.7 Normal 3.5-5.1 mmol/L LAB CL Chloride 99 Normal 98-107 mmol/L LAB CO2 Carbon Dioxide 32.5 High 21.0-31.0 mmol/L LAB GAP Anion Gap 14.2 Normal 6.0-15.0 meq/L LAB CA Calcium 9.6 Normal 8.6-10.3 mg/dL Performed By: #### CBC, ALB, BMP #### [address] #### FRUC #### [facility] , ALBUMIN LEVEL Collected: 4 10:35 AM Status: F Source: [facility] TYPE CODE TESTS RESULT OUT OF RANGE REFERENCE UNITS LAB ALB Albumin Level 3.7 Normal 3.5-5.7 g/dL Result Comment: PERFORMED BY : [place] [address] PATHOLOGIST TUBE WINDER HAND RADHA DURAN M.D. Performed By: #### CBC, ALB, BMP #### [address] #### FRUC #### [facility] , FRUCTOSAMINE Collected: 4 10:35 AM Status: F Source: [facility] TYPE CODE TESTS RESULT OUT OF RANGE REFERENCE UNITS LAB FRUC Fructosamine 308 High 0-285 umol/L Result Comment: Published re ference interval for apparently healthy subjects between age 20 and 60 is 205 - 285 umol/L and in a poorly controlled diabetic population is 228 - 563 umol/L with a mean of 396 umol/L. Performed at: - [facility] [address] [id number] [employer] Librarian: Mohan Talbert PhD, Phone: [phone] PERFORMED BY: [place] [address] PATHOLOGIST TUBE WINDER HAND RADHA DURAN M.D. Performed By: #### CBC, ALB, BMP #### [place] [address] [place] #### FRUC #### [facility] , PST TYPE AND SCREEN Collected: 06/24/2024 10:35 AM S tatus: F Source: [facility] Order Comment: Date of Surge ry: [id number] TYPE CODE TESTS RESULT OUT OF RANGE REFERENCE UNITS LAB BTV Blood Type A Positive Result Comment: PERFORMED BY : [place] [id number] PATHOLOGIST TUBE WINDER HAND RADHA DURAN M.D. LAB ABS Antibody Screen NEGATIVE Result Comment: PERFORMED BY : [place] [address] PATHOLOGIST TUBE WINDER HAND RADHA DURAN M.D. XR KUB Observed: 2024 9:55 AM Status: COMPLETED Source: [facility] [place] [address] XRay Report Signed Patient: Lexi Tatum MR#: [id number] : 1945 Acct:[id number] Age/Sex: 79 / F ADM Date: 06/04/24 Loc: [place] Room: Type: [facility] Attending Dr: Yaniv Natarajan MD Copies [...] Zayra Juarez M.D.06/04/2024 9:56 AM Dictation Location: [place] [address] Transcribed By: [facility] 06/04/24955 Dictated By: Zayra Juarez MD 06/04/24954 Signed By: <Electronically signed by MD Zayra Juarez in OV> 06/04/24955 GLUCOSE POCT GLUCOMETERS Collected: 2024 9:43 A M Status: F Source: [facility] TYPE CODE TESTS RESULT OUT OF RANGE REFERENCE UNITS LAB GLUPOC Glucose Poc Glucometers 247 mg/dL Result Comment: Random Gluco se Reference Range is dependent on time and content of last meal. Glucose of more than 200 mg/dL in a nonstressed, ambulatory subject supports the diagnosis of Diabetes Mellitus. PERFORMED BY: [address] [place] [address] PATHOLOGIST TUBE WINDER HAND RADHA DURAN M.D. Performed By: #### GLULS ### # Point of Care testing , GLUCOSE POCT GLUCOMETERS Collected: 2024 7:44 A M Status: F Source: [facility] TYPE CODE TESTS RESULT OUT OF RANGE REFERENCE UNITS LAB GLUPOC Glucose Poc Glucometers 174 mg/dL Result Comment: Random Gluco se Reference Range is dependent on time and content of last meal. Glucose of more than 200 mg/dL in a nonstressed, ambulatory subject supports the diagnosis of Diabetes Mellitus. LAB COMM1 Commemt1 Glu2: Cleaned Meter LAB COMM2 Commemt2 WILL NOTIFY DR/RN Result Comment: PERFORMED BY : [address] [place] [address] PATHOLOGIST TUBE WINDER HAND RADHA DURAN M.D. Performed By: #### GLULS ### # Point of Care testing , URINE CULTURE Observed: 05/25/2024 10:30 AM Status: F Source: [facility] No Growth 2 Days PERFORMED BY: [address] [place] [place] [address] PATHOLOGIST TUBE WINDER HAND RADHA DURAN M.D. Performed By: #### CUU #### [facility] [address] [place] [address] [facility] COMPLETE BLOOD COUNT AUTO DIFF Collected: 05/21/2024 1:40 PM Status: F Source: F [facility] TYPE CODE TESTS RESULT OUT OF RANGE REFERENCE UNITS LAB WBC White Blood Count 12.8 High 3.8-11.6 10*3/uL LAB UNWBC Uncorrected WBC 12.8 High 3.8-11.6 10*3/uL LAB RBC Red Blood Count 3.73 Normal 3.60-5.00 LAB HGB Hemoglobin 12.0 Normal 11.8-15.4 g/dL LAB HCT Hematocrit 36.6 Normal 34.0-46.4 % LAB MCV Mean Corpuscular Volume 98.0 Normal 80-100 fL LAB MCH Mean Corpuscular Hemoglobin 32.1 Normal 24.7-34.3 pg LAB MCHC Mean Corpuscular HGB Conc 32.7 Normal 32.0-35.0 g/dL LAB RDW Red Cell Distribution Width 16.1 High 11.9-15.3 % LAB PLT Platelet Count 216 Normal 150-450 10*3/uL LAB MPV Mean Platelet Volume 9.3 Normal 6.3-10.7 fL LAB NE% Neutrophils % (Auto) 76.2 . % LAB LY% Lymphocytes % (Auto) 14.2 . % LAB MO% Monocytes % (Auto) 6.4 . % LAB EO% Eosinophils % (Auto) 2.4 . % LAB BA% Basophils % (Auto) 0.8 . % LAB NRBC% NRBC% 0.1 Normal 0-0.5 /100{WBC} LAB NE# Neutrophils # (Auto) 9.7 High 1.8-7.7 10*3/uL LAB LY# Lymphocytes # (Auto) 1.8 Normal 1.00-4.8 10*3/uL LAB MO# Monocytes # (Auto) 0.8 Normal 0.0-0.8 10*3/uL LAB EO# Eosinophils # (Auto) 0.3 Normal 0.0-0.45 10*3/uL LAB BA# Basophils # (Auto) 0.1 Normal 0.0-0.2 10*3/uL Result Comment: PERFORMED BY : [facility] [address] [place] [place] [address] PATHOLOGIST TUBE WINDER HAND CORAL BECKETT M.D. Performed By: #### PT, BMP, PTT, CBC #### [place] [id number] [facility] PROTHROMBIN TIME INR Collected: 05/21/2024 1:40 PM S tatus: F Source: [facility] TYPE CODE TESTS RESULT OUT OF RANGE REFERENCE UNITS LAB R PT Prothrombin Time 11.1 Normal 9.0-12.9 s Result Comment: A hematocrit value greater than 55% may lead to inaccurate results in coagulation testing. Patients having hematocrit values >55% require a special collection tube for coagulation studies. Please contact the laboratory at [phone] for redraw instructions. LAB INR INR 1.0 Result Comment: INR Therapeu tic Range A) Pre- and Peroperative OAT started [...] valves: 3 - 4.5 Performed By: #### PT, BMP, PTT, CBC #### [address] [address] [facility] PARTIAL THROMBOPLASTIN TIME Collected: 05/21/2024 1:4 0 PM Status: F Source: [facility] TYPE CODE TESTS RESULT OUT OF RANGE REFERENCE UNITS LAB PTT Partial Thromboplastin Time 29.9 Normal 25.1-36.5 s Result Comment: A hematocrit value greater than 55% may lead to inaccurate results in coagulation testing. Patients having hematocrit values >55% require a special collection tube for coagulation studies. Please contact the laboratory at [phone] for redraw instructions. PERFORMED BY: [place] [address] PATHOLOGIST TUBE WINDER HAND CORAL BECKETT M.D. Performed By: #### PT, BMP, PTT, CBC #### [place] [id number] [facility] BASIC METABOLIC PANEL Collected: 05/21/2024 1:40 PM Status: F Source: [facility] TYPE CODE TESTS RESULT OUT OF RANGE REFERENCE UNITS LAB GLU Glucose 252 High 70-100 mg/dL Result Comment: Random Gluco se Reference Range is dependent on time and content of last meal. Glucose of more than 200 mg/dL in a nonstressed, ambulatory subject supports the diagnosis of Diabetes Mellitus. ADA recommended reference range LAB BUN Blood Urea Nitrogen 45 High 7-25 mg/dL LAB CREATT Creatinine 1.77 High 0.60-1.20 mg/dL LAB GFReNR Estimated GFR 29.063 LAB NA Sodium 135 Low 136-145 mmol/L LAB K Potassium 4.8 Normal 3.5-5.1 mmol/L LAB CL Chloride 98 Normal 98-107 mmol/L LAB CO2 Carbon Dioxide 30.4 Normal 21.0-31.0 mmol/L LAB GAP Anion Gap 11.4 Normal 6.0-15.0 LAB CA Calcium 10.1 Normal 8.6-10.3 mg/dL Result Comment: PERFORMED BY : [place] [address] PATHOLOGIST TUBE WINDER HAND CORAL BECKETT M.D. Performed By: #### PT, BMP, PTT, CBC #### [facility] [address] [place] [address] ALLERGIES DATE TYPE / CODE NAME / CODE REACTION SEVERITY SOURCE 04/06/2025 Drug Allergy/41 5478000(SN OMED CT) adhesive tape/[id number](RXNO RM) Rash Unknown [facility] 04/06/2025 Drug Allergy/41 7431303(SN OMED CT) blue dye/I106743466(RXNOR M) Nausea Moderate (Severity Modifier) (Qualifier Value) [facility] 04/06/2025 Drug Allergy/41 2408567(SN OMED CT) semaglutide/N8891593 24(RXNORM) nausea, vomiting Moderate (Severity Modifier) (Qualifier Value) [facility] 07/08/2023 DRUG INGREDI/41 3752476(SN OMED CT) ATORVASTATIN Myalgia [facility] 07/08/2023 Drug Class/4195 60337(SNOM ED CT) WILLIAMS INHIBITORS [facility] Ambulatory 07/08/2023 DRUG INGREDI/41 5429836(SN OMED CT) SPIRONOLACTONE Other [facility] 07/08/2023 Drug Class/4195 57015(SNOM ED CT) GZNEOTT-PNN-ZRK REDUCTASE INHIBITORS Myalgia [facility] DR/2660838 06(SNOMED CT) pravastatin Unknown [facility] DR/3070876 06(SNOMED CT) atorvastatin myalgia [facility] ENCOUNTERS ADMIT/DISCHARGE ACCOUNT NUMBER ADMITTING ENCOUNTER CLASS LOCATION SOURCE 04/11/2025 [id number] Ambulatory CD:[id number] 7Building:CD :[id number] [facility] 04/11/2025 [id number] Ambulatory CD:[id number] 7Building:CD :[id number] [facility] 04/07/2025/04/09/20 25 [id number] Juice Mackenzie [facility] [id number]: 1 [facility] 03/22/2025/04/04/20 25 [id number] Farhat Almeida [facility]: [id number]: 1 [facility] 03/21/2025/03/22/20 25 [id number] [facility] [id number] [facility] 03/09/2025 [id number] [facility]PTBONECRK [facility] 03/09/2025/03/09/20 25 [id number] [facility] 03/03/2025/03/03/20 [id number] Da [facility]ozano [facility] 11/15/2024/11/16/19 25 [id number] Stefan Best [facility] 10/22/2024/10/23/19 25 [id number] Yaniv [facility]atarajan [facility] 10/22/2024/10/23/19 [id number] Ambulatory CD:[id number] 7Building:CD :[id number] [facility] 09/26/2024/09/27/19 [id number] Isiah Mtaa [facility] 08/11/2024/08/11/19 [id number] Ambulatory Building:[address] 07/15/2024/07/15/19 [id number] Stefan Best [facility] 07/12/2024/07/12/20 24 [id number] Blake [facility] 06/28/2024/06/28/20 24 [id number] [place] II, [facility] 06/24/2024/06/24/20 24 [id number] Blake [facility] 06/04/2024/06/04/20 24 [id number] Yaniv Natarajan [facility] 06/04/2024/06/04/20 24 [id number] Ambulatory CD:[id number] 7Building:CD :[id number] [facility] 05/25/2024/05/25/20 24 [id number] Stefan Best [facility] 05/21/2024/05/21/20 24 [id number] [facility]iv [facility]atarajan [facility] 05/14/2024 [id number] Ambulatory CD:[id number] 7Building:CD :[id number] [facility] PAYERS ENCOUNTER GUARANTOR PAYER SUBSCRIBER SOURCE 04/11/2025 LEXI MCADAMS: [id number] [address]Tel: ~ ~(4 1 (HP) Primary Insurance:MEDICAREPo licy Number: [id number] Date:4414-28-84[address] [address]S[place]JXZILJ, [place] [address]LI: LEXI LORENZO [facility] 04/11/2025 Secondary Insurance:AARPPolicy Number: [id number] Date:8522-42-21JV [address]ZBSBULQ, [place] [address]LS: LEXI LORENZO [facility] 04/11/2025 LEXI L RITENOURDOB: EVEN[address] SHADE STTel: ~ ~(4 1 (HP) Primary Insurance:MEDICAREPo licy Number: [id number] Date:6461-78-66JK [address] [address]XEJWOYPDP [place] [address]ZB: LEXI LORENZO [facility] 04/11/2025 Secondary Insurance:AARPPolicy Number: [id number] Date:3225-82-77WP [address]ELXFMRH, [place] [address]LJ: LEXI LORENZO [facility] 04/07/2025 Lexira Nestor Singer[address] [place] [address]Owb: () Primary Insurance:MedicarePo licy Number: [id number] Date:2025-04-07 Lexi L RitenourDOB: [id number] [place] [address]Fhk: () [facility] 04/07/2025 Secondary Insurance:[facility] Health ClaimsPolicy Number: [id number] Date:2025-04-07 Lexi L RitenourDOB: [id number] [place] [address]Gcs: () [facility] 04/07/2025 Tertiary Insurance:Self PayPolicy Number: Effective Date:2025-04-07 NOT GIVENUNK [facility] 03/22/2025 Lexi Fitzgeraldur[address] [place] [phone]: () Primary Insurance:Medicare Rehab-IP Part APolicy Number: [id number] Date:2025-03-22 Lexi SingerenourDOB: [id number] [place] [phone]: () [facility] 03/22/2025 Secondary Insurance:MedicarePo licy Number: [id number] Date:2025-03-22 Lexi SingerenourDOB: [id number] [place] [phone]: () [facility] 03/22/2025 Tertiary Insurance:[facility] Zyrra ClaimsPolicy Number: [id number] Date:2025-03-22 Lexi SingerenourDOB: [id number] [place] [phone]: () [facility] 03/22/2025 Tertiary Insurance:Self PayPolicy Number: Effective Date:2025-03-22 NOT GIVENUNK [facility] 03/21/2025 Lexi Singerenour[address] [place] [phone]: () Primary Insurance:MedicarePo licy Number: [id number] Date:2025-02-03 Lexi Baez RitenourDOB: 1646-10-23HMI259 [place] [phone]: () [facility] 03/21/2025 Secondary Insurance:[facility] Zyrra ClaimsPolicy Number: [id number] Date:2025-02-03 Lexi L RitenourDOB: [id number] [place] [phone]: () [facility] 03/21/2025 Tertiary Insurance:Self PayPolicy Number: Effective Date:2025-03-11 NOT GIVENUNK [facility] 03/09/2025 Lexi L Hxjmrihz320 [place] [phone]: () Primary Insurance:MedicarePo licy Number: [id number] Date:2025-02-03 Lexi L RitenourDOB: [id number] [place] [phone]: () [facility] 03/09/2025 Secondary Insurance:[facility] Health ClaimsPolicy Number: [id number] Date:2025-02-03 Lexi L RitenourDOB: [id number] [place] [phone]: () [facility] 03/09/2025 Tertiary Insurance:Self PayPolicy Number: Effective Date:2025-02-03 [facility]/09/2025 Lexi Baez Ngwtusqi265 [place] [phone]: () Primary Insurance:MedicarePo licy Number: [id number] Date:2025-03-09 Lexi L RitenourDOB: [id number] [place] [phone]: () [facility] 03/09/2025 Secondary Insurance:[facility] Health ClaimsPolicy Number: [id number] Date:2025-03-09 Lexi L RitenourDOB: [id number] [place] [address]Ymd: () [facility] 03/09/2025 Tertiary Insurance:Self PayPolicy Number: Effective Date:2025-03-09 [facility] 03/03/2025 Lexi Baez [address] [place] [address]Ply: () Primary Insurance:MedicarePo licy Number: [id number] Date:2025-02-03 Lexi L RitenourDOB: [id number] [address] [place] [phone]: () [facility] 03/03/2025 Secondary Insurance:[facility] Health ClaimsPolicy Number: [id number] Date:2025-02-03 Lexi L RitenourDOB: [id number] [place] [phone]: () [facility] 03/03/2025 Tertiary Insurance:Self PayPolicy Number: Effective Date:2025-02-03 [facility] 11/15/2024 Lexi Baez W[address] [place] [id number]: () Primary Insurance:MedicarePo licy Number: [id number] Date:2024-11-15 Lexi L RitenourDOB: [id number] [place] [phone]: () [facility] 11/15/2024 Secondary Insurance:[facility] Health ClaimsPolicy Number: [id number] Date:2024-11-15 Lexi L RitenourDOB: [id number] [place] [address]Pnl: () [facility] 11/15/2024 Tertiary Insurance:Self PayPolicy Number: Effective Date:2024-11-15 [facility] 10/22/2024 Lexi Baez Ickouplm[address] [place] [address]Egr: (HP) Primary Insurance:MedicarePo licy Number: [id number] Date:2024-10-07 Lexi L RitenourDOB: [id number] [place] [address]Itd: (HP) [facility] 10/22/2024 Secondary Insurance:[facility] ClaimsPolicy Number: [id number] Date:2024-10-07 Lexi L RitenourDOB: [id number] [place] [address]Wza: () [facility] 10/22/2024 Tertiary Insurance:Self PayPolicy Number: Effective Date:2024-10-07 [facility] 10/22/2024 LEXI L RITENOURDOB: [facility]el: ~ ~(4 1 (HP) Primary Insurance:MEDICAREPo licy Number: [id number] Date:3671-02-28NF [address] [address]CM[place], [place] [address]DU: LEXI LROENZO [facility] 10/22/2024 Secondary Insurance:AARPPolicy Number: [id number] Date:3497-23-06[address], [place] [address]YF: LEXI LORENZO [facility] 09/26/2024 Lexi L Mckvtnin5[address] [place] [address]Isl: (HP) Primary Insurance:Self PayPolicy Number: Effective Date:2024-09-26 [facility] 08/11/2024 LEXI RITENOURDOB: [place] [address]Mas: () Primary Insurance:AARPPolicy Number: [id number] Date:2022-07-14 LEXI SINGERENOURDOB: [id number] [place] [address]Yeh: () [facility] 08/11/2024 Secondary Insurance:MEDICAREPo licy Number: [id number] Date:2010-05-14 LEXI SINGERENOURDOB: [id number] [place] [phone]: () [facility] 07/15/2024 [address]i [address] [place] [address]Uxe: () Primary Insurance:MedicarePo licy Number: [id number] Date:2024-07-15 Lexi Baez RitenourDOB: [id number] [place] [address]Hya: () [facility] 07/15/2024 Secondary Insurance:[facility] Health ClaimsPolicy Number: [id number] Date:2024-07-15 Lexi SingerenourDOB: [id number] [place] [id number]: () [facility] 07/15/2024 Tertiary Insurance:Self PayPolicy Number: Effective Date:2024-07-15 [facility] Lexi Singerenour[address] [place] [address]Ymt: () Primary Insurance:Self PayPolicy Number: Effective Date:2024-04-22 [facility]24 Lexi Baez [address] [facility] [address]Dvi: () Primary Insurance:MedicarePo licy Number: [id number] Date:2024-06-28 Lexi SingerenourDOB: [id number] [place] [address]Ovs: () [facility] 06/28/2024 Secondary Insurance:[facility] ClaimsPolicy Number: [id number] Date:2024-06-28 Lexi Baez RitenourDOB: [id number] [place] [id number]: () [facility] 06/28/2024 Tertiary Insurance:Self PayPolicy Number: Effective Date:2024-06-28 [facility] Lexi [address] [place] [phone]: () Primary Insurance:MedicarePo licy Number: [id number] Date:2024-04-22 Lexi SingerenourDOB: [id number] [address] [place] [id number]: () [facility] 06/24/2024 Secondary Insurance[facility] ClaimsPolicy Number: [id number] Date:2024-04-22 Lexi Baez RitenourDOB: [id number] [address] [place] [id number]: () [facility] 06/24/2024 Tertiary Insurance:Self PayPolicy Number: Effective Date:2024-04-22 [facility] 2024 Lexi Singerenour[address] [place]balloStephanie [place] [id number]: () Primary Insurance:MedicarePo licy Number: [id number] Date:2024-02-11 Lexi Baez RitenourDOB: [id number] [place] [address]Jqf: () [facility] 2024 Secondary Insurance:[facility] Health ClaimsPolicy Number: [id number] Date:2024-02-11 Lexi SingerenourDOB: [id number] [place] [address]Cwn: () [facility] 2024 Tertiary Insurance:Self PayPolicy Number: Effective Date:2024-05-28 [facility] LEXI Baez RITENOURDOB: [facility]: ~ ~(4 1 () Primary Insurance:MEDICAREPo licy Number: [id number] Date:[id number], [place] [address]JI: LEXI LORENZO [facility] 2024 Secondary Insurance:AARPPolicy Number: [id number] Date:4258-23-58[address], [place] [address]BD: LEXI LORENZO [facility] 05/25/2024 Lexi Singeren[address] [place] [address]Xxf: () Primary Insurance:MedicarePo licy Number: [id number] Date:2024-05-25 Lexi Baez RitenourDOB: [id number] [place] [address]Agu: () [facility] 05/25/2024 Secondary Insurance:[facility] Health ClaimsPolicy Number: [id number] Date:2024-05-25 Lexi FitzgeraldannieDOB: [id number] [place] [address]Ccb: () [facility] 05/25/2024 Tertiary Insurance:Self PayPolicy Number: Effective Date:2024-05-25 NOT GIVENUNK [facility] 05/21/2024 Lexi Fitzgeraldur[address] [place] [address]Ozu: () Primary Insurance:MedicarePo licy Number: [id number] Date:2024-02-11 Lexi TatumDOB: [id number] [place] [address]Gfo: () [facility] 05/21/2024 Secondary Insurance:[facility] ClaimsPolicy Number: [id number] Date:2024-02-11 Lexi TatumDOB: [id number] [place] [address]Zhi: () [facility] 05/21/2024 Tertiary Insurance:Self PayPolicy Number: Effective Date:2024-03-30 [facility]
--- NOTE | 2025-04-11 09:12 | ECG_ITS ---
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
--- NOTE | 2025-04-11 09:28 | ED.GENADUL1 ---
HPI HPI - General Adult General Chief complaint: Urogenital-Female Stated complaint: URINARY ISSUES Time Seen by Provider: 04/11/25 09:11 Source: patient Mode of arrival: ambulance Limitations: no limitations History of Present Illness HPI narrative: Patient is a 79-year-old female presenting to the emergency department via EMS from home for concerns of urinary symptoms and generalized weakness. Patient states that over the last 2 days she has had increasingly worsening urinary hesitancy, hematuria, and dysuria. She states this feels like previous episodes of UTIs. She was recently postop from a left hip surgery 3 weeks ago. She had a Tovar catheter at that time, which has since been removed. She denies being on anticoagulation, but is on DAPT. She was also recently seen here in the ED 4 days ago to rule out PE, and at which time had a negative work-up. Other than the urinary symptoms, she denies any other complaints such as cough, congestion, URI symptoms, chest pain, shortness of breath, nausea, vomiting, constipation, diarrhea. Related Data Home Medications ?Medication ?Instructions ?Recorded ?Confirmed allopurinol 300 mg tablet 300 mg PO DAILY 08/30/23 04/07/25 aspirin 81 mg tablet,delayed 81 mg PO DAILY 08/30/23 04/07/25 release carvedilol 25 mg tablet 25 mg PO BID 08/30/23 04/07/25 cholecalciferol (vitamin D3) 125 125 mcg PO .every other day 08/30/23 04/07/25 mcg (5,000 unit) tablet clopidogrel 75 mg tablet 75 mg PO DAILY 08/30/23 04/07/25 furosemide 40 mg tablet 40 mg PO QAM 08/30/23 04/07/25 rosuvastatin 5 mg tablet 5 mg PO DAILY 08/30/23 04/07/25 gabapentin 300 mg capsule 300 mg PO BID 08/31/23 04/07/25 insulin aspart U-100 100 unit/mL 1 sliding scale dose subcut ACHS 08/31/23 04/07/25 (3 mL) subcutaneous pen (Novolog FlexPen U-100 Insulin aspart) insulin glargine 100 unit/mL (3 50 unit subcut .hs 09/27/24 04/07/25 mL) subcutaneous pen (Basaglar KwikPen U-100 Insulin) Allergies Allergy/AdvReac Type Severity Reaction Status Date / Time No Known Drug Allergies Allergy Verified 04/07/25 13:32 Opioid HPI Opioid Management Most Recent Opioid Data: Last Pain Scale 3 09/27/24, 12:00 Last Pain Intensity 4 09/01/23, 09:23 Last ORT Total Score 3 09/27/24, 02:42 Last ORT Risk Category Low Risk 09/27/24, 02:42 Review of Systems ROS Status of ROS 10 or more systems reviewed and unremarkable except as noted in history and below PFSH PFS Medical History (Updated 04/11/25 @ 12:46 by Robby Light DO) CHF (congestive heart failure) ?I50.9 - Heart failure, unspecified (ICD-10) Gout ?M10.9 - Gout, unspecified (ICD-10) Peripheral arterial disease ?I73.9 - Peripheral vascular disease, unspecified (ICD-10) CAD (coronary artery disease) ?I25.10 - Atherosclerotic heart disease of enterprise coronary artery without angina pectoris (ICD-10) Stage 3b chronic kidney disease (CKD) ?N18.32 - Chronic kidney disease, stage 3b (ICD-10) HTN (hypertension) ?I10 - Essential (primary) hypertension (ICD-10) Diabetes ?E11.9 - Type 2 diabetes mellitus without complications (ICD-10) Surgical History S/P hip replacement ?Z96.649 - Presence of unspecified artificial hip joint (ICD-10) History of aortic bifurcation bypass graft ?Z95.828 - Presence of other vascular implants and grafts (ICD-10) S/P triple vessel bypass ?Z95.1 - Presence of aortocoronary bypass graft (ICD-10) History of 3 sections ?Z98.891 - History of uterine scar from previous surgery (ICD-10) Family History Brother Family history of cancer Mother Family history of hypertension Father Family history of myocardial infarction Other Family history of CHF (congestive heart failure) Family history of diabetes mellitus Social History Within the past year, how often did you have a drink containing alcohol: never Score interpretation: A score less than 3 is consistent with normal alcohol consumption. Smoking status: Former smoker Non-prescribed substance use: denies use Previous occupational history: disabled Highest level of school completed/degree received: high school graduate Are you now , , , , never or living with a partner: In a typical week, how many times do you talk on the telephone with family, friends, or neighbors: 3 or more times per week How often do you get together with friends or relatives: 3 or more times per week How often do you attend buddhist or christianity services: 4 or more times per year Little interest or pleasure in doing things: not at all Feeling down, depressed, or hopeless: not at all Feel stressed/tense/nervous/anxious/difficulty sleeping: not at all Do you think of yourself as: straight/heterosexual Gender Identity: female Exam Narrative Exam Narrative: CONSTITUTIONAL: Well-appearing, smells of urine, answering questions and following commands appropriately SKIN: Was warm and dry. EYES: Sclerae white. EARS, NOSE, THROAT: Moist oral mucosa. RESPIRATORY: Clear to auscultation bilaterally, no wheezes, crackles, or stridor, no use of accessory muscles CARDIOVASCULAR: Normal rate and regular rhythm. There is no S3, S4, murmur, rub. GASTROINTESTINAL: Abdomen is soft, nontender, and nondistended. No rebound tenderness or guarding. No CVA tenderness. MUSCULOSKELETAL: Trace pitting edema of the bilateral lower extremities. No overlying erythema or cellulitic changes. NEUROLOGIC: Patient is awake and alert. Facies were symmetrical. Constitutional Vital Signs, click to edit/add: Last Vital Signs Temp 98.7 F 04/11/25 09:07 Pulse 69 04/11/25 11:00 Resp 19 04/11/25 09:30 BP 127/63 04/11/25 10:34 Pulse Ox 95 04/11/25 09:07 O2 Del Method Room Air 04/11/25 09:07 Course Vital Signs Vital signs: Vital Signs Temperature 98.7 F 04/11/25 09:07 Pulse Rate 72 04/11/25 09:07 Respiratory Rate 18 04/11/25 09:07 Blood Pressure 117/57 04/11/25 09:07 Pulse Oximetry 95 04/11/25 09:07 Oxygen Delivery Method Room Air 04/11/25 09:07 Temperature 98.7 F 04/11/25 09:07 Pulse Rate 69 04/11/25 11:00 Respiratory Rate 19 04/11/25 09:30 Blood Pressure 127/63 04/11/25 10:34 Pulse Oximetry 95 04/11/25 09:07 Oxygen Delivery Method Room Air 04/11/25 09:07 Medical Decision Making MDM Narrative Medical decision making narrative: Patient is a 79-year-old female presenting to the emergency department via EMS from home for urinary symptoms x 2 days. Vital signs arrival are within normal limits. She is afebrile and hemodynamic stable. Physical examination was unremarkable. Patient had minimal amount of urine on bedside bladder scan. Differential diagnose includes UTI, atypical presentation for ACS, dehydration, or other electrolyte/metabolic derangement. She does have a history of CHF, but does not appear to be acutely decompensated. She is breathing comfortably on room air saturating 95%. Laboratory studies were obtained. Laboratory studies were significant for a UTI with large amount of bacteria, RBCs, and WBCs. She has an elevated creatinine of 3.0, up from her baseline of around 2.3. This is significant for an acute kidney injury. No associated electrolyte or metabolic derangements otherwise. No leukocytosis. She is anemic but at her baseline. Her initial and repeat 2-hour troponin are 94 and 134 respectively. 12 Lead EKG: Normal sinus rhythm at a rate of 68. Normal axis. There are global wide-complex QRS complexes consistent with intraventricular conduction delay. ST elevation in leads V1, V2, V3, aVR, and lead III. There are ST depressions in leads V4, V5, V6, aVL, I, and II. These changes are unchanged from her recent EKG in 04/07/2025. Final impression: normal sinus rhythm without evidence of acute myocardial ischemia. I do leave the patient's presentation is secondary to urinary tract infection, which is causing a type II demand ischemia. She was empirically treated with 1 g of IV ceftriaxone and a urine culture was sent. I did consult and discuss the patient with her switch adjuster, Dr. Cobb, who agreed. He does not believe this is secondary to acute coronary syndrome. She is already on dual antiplatelet therapy. He recommends against heparinization, and agrees that hospitalization at [place] is appropriate. I discussed the patient with Dr. Alvarez who accepted the patient to his service. Medical Records Medical records reviewed: Yes I reviewed the patient's medical records Lab Data Lab results reviewed: Yes I reviewed the patient's lab results Labs: Lab Results 04/11/25 04/11/25 04/11/25 Range/Units 09:36 10:20 10:51 WBC 8.2 (4.0-11.0) 10^3/uL RBC 3.34 L (4.20-5.40) 10^6/uL Hgb 10.7 L (12.0-16.0) g/dL Hct 36.3 (36.0-48.0) % MCV 108.7 H (81.0-99.0) fL MCH 32.0 (26.7-34.0) pg MCHC 29.5 L (29.9-35.2) g/dL RDW 17.3 H (11.0-15.0) % Plt Count 192 (150-450) 10^3/uL MPV 9.8 (9.5-13.5) fL Neut % (Auto) 73.0 (43.0-75.0) % Lymph % (Auto) 15.5 L (20.5-60.0) % Gove % (Auto) 9.3 (1.7-12.0) % Eos % (Auto) 1.8 (0.9-7.0) % Baso % (Auto) 0.2 (0.2-2.0) % Neut # (Auto) 6.0 (1.4-6.5) 10^3/uL Lymph # (Auto) 1.3 (1.2-3.8) 10^3/uL Gove # (Auto) 0.8 (0.3-0.8) 10^3/uL Eos # (Auto) 0.2 (0.0-0.7) 10^3/uL Baso # (Auto) 0.0 (0.0-0.1) 10^3/uL Abs Immat Gran (auto) 0.02 (0.00-0.03) 10^3/uL Imm/Tot Granulo (auto) 0.2 (0.0-0.5) % Sodium 138 (136-145) mmol/L Potassium 4.9 (3.5-5.1) mmol/L Chloride 100 (98-107) mmol/L Carbon Dioxide 29.1 (21.0-32.0) mmol/L Anion Gap 13.8 BUN 49.0 H (7.0-18.0) mg/dL Creatinine 3.07 H (0.55-1.02) mg/dL Est GFR ( Amer) 18 L (>=60 mL/min/1.73m^2) Est GFR (Non-Af Amer) 15 L (>=60 mL/min/1.73m^2) BUN/Creatinine Ratio 16.0 Glucose 132 H (74-106) mg/dL Calcium 9.0 (8.5-10.1) mg/dL Troponin I High Sens 96.1 H* 134.7 H* (4.0-51.3) pg/mL Urine Color Dk red A (YELLOW) Urine Clarity Cloudy A (CLEAR) Urine pH Color interference A (5.0-9.0) Ur Specific Johnston 1.030 A (1.005-1.025) Urine Protein Color interference A (NEG/TRACE) mg/dL Urine Glucose (UA) Color interference A (NEGATIVE) mg/dL Urine Ketones Color interference A (NEGATIVE) mg/dL Urine Occult Blood Color interference A (NEGATIVE) Urine Nitrite Color interference A (NEGATIVE) Urine Bilirubin Color interference A (NEGATIVE) Urine Urobilinogen Color interference A (0.2-1.0) EU/dL Ur Leukocyte Esterase Color interference A (NEGATIVE) Urine RBC >100 A (0-2) #/HPF Urine WBC 75-100 A (NONE SEEN) #/HPF Ur Squamous Epith Cells None seen (NONE/RARE) #/LPF Urine Crystals None seen (None Seen) #/HPF Urine Bacteria Large A (NONE SEEN) #/HPF Urine Casts None seen (NONE SEEN) #/LPF Urine Mucus None seen (NONE SEEN) Ur Culture Indicated? Already ordered ECG Data Attestation: I personally reviewed and interpreted this ECG as follows: Discharge Plan Discharge Chief Complaint: Urogenital-Female Clinical Impression: Acute UTI, Demand ischemia Patient Disposition: Admitted As Inpatient Time of Disposition Decision: 12:45 Condition: Fair
[2025-04-11 09:43] LABS: Hematocrit 36.3 % (36.0-48.0); Hemoglobin 10.7 g/dL (12.0-16.0); Immature Granulocytes Abs Auto 0.02 10^3/uL (0.00-0.03); Immature Granulocytes Pct Auto 0.2 % (0.0-0.5); Lymphocytes Absolute Auto 1.3 10^3/uL (1.2-3.8); Mean Corpuscular HGB Conc 29.5 g/dL (29.9-35.2); Mean Corpuscular Hemoglobin 32.0 pg (26.7-34.0); Platelet Count 192 10^3/uL (150-450); Red Blood Count 3.34 10^6/uL (4.20-5.40); White Blood Count 8.2 10^3/uL (4.0-11.0)
[2025-04-11 09:58] LABS: Anion Gap 13.8; Blood Urea Nitrogen 49.0 mg/dL (7.0-18.0); Calcium 9.0 mg/dL (8.5-10.1); Carbon Dioxide 29.1 mmol/L (21.0-32.0); Chloride 100 mmol/L (98-107); Estimated GFR (African America 18 (>=60 mL/min/1.73m^2); Estimated GFR (Non-African Ame 15 (>=60 mL/min/1.73m^2); Glucose 132 mg/dL (74-106); Potassium 4.9 mmol/L (3.5-5.1); Sodium 138 mmol/L (136-145)
[2025-04-11 10:03] LABS: Mean Corpuscular Volume 108.7 fL (81.0-99.0)
--- OUTSIDE RECORDS SUMMARY | 2025-04-11 10:20 | XMS_ITS ---
Author Name Auto Generated Organization OHIP Support Name Relationship Address Phone Toi Walter Next of Kin [address] [place] [address], [place] [address] + Jameson Braun Next of Kin [address] [place] [address], [place] [address] + Walter Tatum Next of Kin [address] [place] [address], [place] [address] + Jameson Braun Next of Kin [address] [place] [address], [place] [address] + Walter Tatum Next of Kin [address] [place] [address], [place] [address] + Jameson Braun Next of Kin [address] [place] [address], [place] [address] + Walter Tatum Next of Kin [address] [place] [address], [place] [address] + Jameson Braun Next of Kin [address] [place] [address], [place] [address] + Walter Tatum Next of Kin [address] [place] [address], [place] [address] + Jameson Braun Next of Kin [address] [place] [address], [place] [address] + Walter Tatum Next of Kin [address] [place] [address], [place] [address] + Jameson Braun Next of Kin [address] [place] [address], [place] [address] + Walter Tatum Next of Kin [address] [place] [address], [place] [address] + Jameson Braun Next of Kin [address] [place] [address], [place] [address] + Ritenoannie, Walter Next of Kin [address] [place] [address] + Kade Jameson Next of Kin [address] [place] [address], [place] [address] + Ritenoannie, Walter Next of Kin [address] [place] [address] + Kade Jameson Next of Kin [address] [place] [address], [place] [address] + Ritenoannie, Walter Next of Kin [address] [place] [address] + Jameson Braun Next of Kin [address] [place] [address], [place] [address] + RETIRED Next of Kin Unknown Unavailable KADE JAMESON Next of Kin Unknown + RitenoWalter valencia Next of Kin [address] [place] [address] + Jameson Braun Next of Kin [address] [place] [address], [place] [address] + Ritkellen, Walter Next of Kin [address] [place] [address] + Kade Jameson Next of Kin [address] [place] [address], [place] [address] + Ritenoannie, Walter Next of Kin [address] [place] [address] + Jameson Braun Next of Kin [address] [place] [address], [place] [address] + Ritenoannie, Walter Next of Kin [address] [place] [address] + Jameson Braun Next of Kin [address] [place] [address], [place] [address] + Ritenoannie, Walter Next of Kin [address] [place] [address] + Jameson Braun Next of Kin Unknown + RitenoWalter valencia Next of Kin [address] [place] [address] + Jameson Braun Next of Kin Unknown + Walter Tatum Next of Kin [address] [place] [address] + Jameson Braun Next of Kin Unknown + Care Team Providers Care Real Estate Paralegal Name Role Phone ANGELA BRAUN Attending Unavailable SHAHRZAD RUANO Referring Unavailable BESTSTEFAN E Primary Care Unavailable COOKYaniv P Attending Unavailable COOK, Yaniv P Attending Unavailable COOK, Yaniv P Attending Unavailable COOK, Yaniv P Attending Unavailable COOK, Yaniv P Attending Unavailable Best, Stefan E Primary Care Unavailable Cook, Yaniv P Attending Unavailable Cook, Yaniv P Admitting Unavailable Best, Stefan E Primary Care Unavailable Cook, Yaniv P Admitting Unavailable Cook, Yaniv P Attending Unavailable Da Lozano II Admitting Unavailabl e Best, Stefan E Primary Care Unavailable Da Lozano II Attending Unavailabl e Best, Stefan E Primary Care Unavailable Cook, Yaniv P Admitting Unavailable Cook, Yaniv P Attending Unavailable Best, Stefan E Primary Care Unavailable Mateo Schaeffer Attending Unavailable Raz, Janelle Consulting Unavailable Juice Mackenzie Admitting Unavailable Janelle Crandall Consulting Unavailable Montana Cobb Consulting Unavailable Charlotte Cordon Consulting Unavailable Farrah Franks Consulting Unavailable Angela Braun Consulting Unavailable Kandi Villeda Consulting Unavailable Elisa Walker Consulting Unavailable Earnest Ferrari Consulting Unavailable Stefan Best E Primary Care Unavailable Da Loznao II Admitting UnavailDa Aranda II Attending UnavailLily Luong Consulting Unavailable Jacinda Taylor Consulting Unavailable Sherrie Yoder Consulting Unavailable Namrata Marshall Consulting Unavailable Selene Taylor Consulting Unavailable Kalyani Ferrari Consulting Unavailable Trace Alvarez Consulting Unavailable Clayton De La Cruz Consulting Unavailable Stewart Osorio Consulting Unavailable Norberto Pires Consulting UnavailMateo Chang Consulting Unavailable Maxine Ovalle Consulting Unavailable David Maher Consulting Unavailable Mason Rivera Consulting Unavailable Vandana Urbina Consulting Unavailabl yael Ruff, Marwan Consulting Unavailable Gibson, Nathan Consulting Unavailable Lorenzo, Safwan Consulting Unavailable David Patel Consulting Unavailable Jj Muniz Consulting Unavailable Aldair Leija Consulting Unavailable Salud Cee Consulting Unavailable Crissy Smith Consulting Unavailable DoDany palm Consulting Unavailab le Sergei, Hernan Consulting Unavailable Markel Ledbetter Consulting Unavailable Chevy Espino Consulting Unavailable Vy Ortiz Consulting Unavailable Juice Mackenzie Consulting Unavailable Daromar, Obaydah M Consulting Unavailable Goldie Braun Consulting Unavailable Jelena Inman Consulting Unavailable Katiana Barrera Consulting Unavailable Jagjit Atkinson Consulting Unavailable Roberto Jaime Consulting Unavailable Herman Bella Consulting Unavailable Nithya Alvarado Consulting Unava luzable Francisca Escudero Consulting Unavailable Nishi Welsh Consulting Unavailable Earnest Noel Consulting Unavailable Mason Flanagan Consulting Unavailable Hill Marmolejo Consulting Unavailable Maryana Walker Consulting Unavailable Bolzan-Sherry, Nicoletto Consulting Unavaila haydee South Lexi Consulting Unavailable Stefan Best Primary Care Unavailable Farhat Almeida Attending UnavailLily Myers Consulting Unavailable Farhat Almeida Admitting Unavaila haydee Taylor Jacinda Consulting Unavailable Sherrie Yoder Consulting Unavailable Namrata Marshall Consulting Unavailable Selene Taylor Consulting Unavailable Kalyani Ferrari Consulting Unavailable Trace Alvarez Consulting Unavailable Clayton De La Cruz Consulting Unavailable Stewart Osorio Consulting Unavailable Norberto Pires Consulting UnavailMateo Chang Consulting Unavailable Maxine Ovalle Consulting Unavailable David Maher Consulting Unavailable Mason Rivera Consulting Unavailable Vandana Urbina Consulting UnavailSulema Griffithwan Consulting Unavailable Paige, Nathan Consulting Unavailable Lorenzo, Safwan Consulting Unavailable David Patel Consulting Unavailable Flavio, Firas Consulting Unavailable Aldair Leija Consulting Unavailable Salud Cee Consulting Unavailable Crissy Smith Consulting Unavailable Dany Schroeder Consulting Unavailab le Sergei, Hernan Consulting Unavailable Almoselkizzy, Khaled Consulting Unavailable Chevy Espino Consulting Unavailable Vy Ortiz Consulting Unavailable Juice Mackenzie Consulting Unavailable HenryomaNikolai andrew Consulting Unavailable Goldie Braun Consulting Unavailable Jelena Inman Consulting Unavailable AlaKatiana salazar Consulting Unavailable Jagjit Atkinson Consulting Unavailable Roberto Jaime Consulting Unavailable Herman Bella Consulting Unavailable Nithya Alvarado Consulting Unava ilable Francisca Escudero Consulting Unavailable Blaise Mohamadave Consulting Unavailable Earnest Noel Consulting Unavailable Mason Flanagan S Consulting Unavailable Hill Marmolejo Consulting Unavailable Maryana Walker Consulting Unavailable Bolzan-Sherry, Nicolettmadeleine Consulting Unavaila Lexi Sloan Consulting Unavailable Isiah Mata Attending Unavailable Stefan Best Primary Care Unavailable Isiah Mata Admitting Unavailable Stefan Best Admitting Unavailable Stefan Best Attending Unavailable Stefan Best Primary Care Unavailable Da Lozano II Admitting Unavailabl e Stefan Best Primary Care Unavailable Da Lozano II Attending UnavailRobby Silva Admitting Unavailable Robby Light Attending Unavailable Stefan Best Primary Care Unavailable Da Lozano II Admitting Unavaildarcy e Blake GUILLERMO, Da Artis Attending Unavailabl e Stefan Best Admitting Unavailable Stefan Best Attending Unavailable Stefan Best Primary Care Unavailable Stefan Best Primary Care Unavailable Stefan Best Admitting Unavailable Stefan Best Attending Unavailable Da Lozano II Admitting Unavailabl e Stefan Best Primary Care Unavailable Da Lozano II Attending Unavailabl e Stefan Best Primary Care Unavailable Da Lozano II Attending UnavailDa Aranda II Admitting Unavailabl e Da Lozano II Admitting Unavailabl e Stefan Best Primary Care Unavailable Da Lozano II Attending Unavaildarcy e PROBLEMS DATE TYPE CONDITION / CODE ATTENDING STATUS [facility] 04/07/2025 Unknown Heart failure, unspecified / I50.9(ICD-10) Mateo Schaeffer [facility] 04/07/2025 Unknown Chronic kidney d isease, unspecified / N18.9(ICD-10) [facility] 04/07/2025 Unknown Gout, unspecifie d / M10.9(ICD-10) [facility] 04/07/2025 Unknown Type 2 diabetes mellitus with diabetic chronic kidney disease / E11.22(ICD-10) [facility] 04/07/2025 Unknown Ischemic cardiom yopathy / I25.5(ICD-10) [facility] 04/07/2025 Unknown 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 / I25.10(ICD-10) [facility] 04/07/2025 Unknown Hyperglycemia, unspecified / R73.9(ICD-10) [facility] 04/07/2025 Unknown Adverse effect o f glucocorticoids and synthetic analogues, initial encounter / T38.0X5A(ICD-10) [facility] 03/22/2025 Unknown Acute on chronic systolic (congestive) heart failure / I50.23(ICD-10) Farhat Almeida [facility] 03/22/2025 Unknown Peripheral vascu lar disease, unspecified / I73.9(ICD-10) Farhat Almeida [facility] 03/22/2025 Unknown Type 2 diabetes mellitus with hyperglycemia / E11.65(ICD-10) Farhat Almeida [facility] 03/22/2025 Unknown intermediate (curre nt) use of insulin / Z79.4(ICD-10) Farhat Almeida [facility] 03/22/2025 Unknown Other reduced mo bility / Z74.09(ICD-10) Farhat Almeida [facility] 03/22/2025 Unknown Chronic kidney d isease, stage 4 (severe) / N18.4(ICD-10) Farhat Almeida [facility] 03/21/2025 Unknown Unilateral prima ry osteoarthritis, left hip / M16.12(ICD-10) Blake II, [facility] 03/21/2025 Unknown Presence of left artificial hip joint / Z96.642(ICD-10) Blake II, [facility] 03/21/2025 Unknown Morbid (severe) obesity due to excess calories / E66.01(ICD-10) Blake II, [facility] 03/21/2025 Unknown Weakness / R53.1(ICD-10) Car lisle II, [facility] 03/21/2025 Unknown Chronic systolic (congestive) heart failure / I50.22(ICD-10) Blake , [facility] 03/21/2025 Unknown Essential (prima ry) hypertension / I10(ICD-10) Blake II, [facility] 03/21/2025 Unknown Hyperlipidemia, unspecified / E78.5(ICD-10) Blake , [facility] 03/09/2025 Unknown Encounter for ot her preprocedural examination / Z01.818(ICD-10) Blake GUILLERMO, [facility] 03/09/2025 Unknown Pain in left hip / M25.552(ICD-10) Blake , [facility] 11/15/2024 Unknown Urinary tract in fection, site not specified / N39.0(ICD-10) Stefan Best [facility] 11/15/2024 Unknown Bacterial infect ion, unspecified / A49.9(ICD-10) Stefan Best [facility] 08/11/2024 Admitting Diagnosis Other specified symptoms and signs involving the circulatory and respiratory systems / R09.89(ICD-10) ANGELA BRAUN [facility] 08/11/2024 Admitting Diagnosis Chronic kidney disease, stage 3b (Multi) / N18.32(ICD-10) ANGELA BRAUN [facility] 08/11/2024 Admitting Diagnosis Body mass index (BMI) 33.0-33.9, adult / Z68.33(ICD-10) [facility] Admitting Diagnosis 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 / I25.10(ICD-10) [facility] 07/08/2023 Admitting Diagnosis Ischemic cardiomyopathy / I25.5(ICD-10) [facility] 07/08/2023 Admitting Diagnosis Essential (primary) hypertension / I10(ICD-10) [facility] 07/08/2023 Admitting Diagnosis Mixed hyperlipidemia / E78.2(ICD-10) [facility] 07/08/2023 Admitting Diagnosis Type 2 diabetes mellitus without complications (Multi) / E11.9(ICD-10) [facility] 07/08/2023 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 (Multi) / Z79.4(ICD-10) [facility] 07/08/2023 Admitting Diagnosis Peripheral vascular disease, unspecified ([facility]) / I73.9(ICD-10) [facility] 08/11/2024 Admitting Diagnosis Occlusion and stenosis of right carotid artery / I65.21(ICD-10) [facility] 06/28/2024 Unknown Secondary hyperparathyroidism of renal origin / N25.81(ICD-10) Da Lozano II [facility] 06/28/2024 Unknown 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 / D63.1(ICD-10) Blake GUILLERMO Da Chandra [facility] 06/28/2024 Unknown Hypertensive chr onic kidney disease with stage 1 through stage 4 chronic kidney disease, or unspecified chronic kidney disease / I12.9(ICD-10) Da Lozano II [facility] 2024 Unknown Hydronephrosis w ith ureteral stricture, not elsewhere classified / N13.1(ICD-10) Yaniv Natarajan [facility] 05/25/2024 Unknown Acute pyelonephr itis / N10(ICD-10) Stefan Best [facility] 05/21/2024 Unknown Encounter for preprocedural laboratory examination / Z01.812(ICD-10) Delgado Yaniv Mirian Active [facility] PROCEDURES No Procedure Records Found RESULTS GLUCOSE POCT GLUCOMETERS Collected: 04/09/2025 11:15 AM Status: F Source: [facility] TYPE CODE TESTS RESULT OUT OF RANGE REFERENCE UNITS LAB GLUPOC Glucose Poc Glucometers 238 mg/dL Result Comment: Random Gluco se Reference Range is dependent on time and content of last meal. Glucose of more than 200 mg/dL in a nonstressed, ambulatory subject supports the diagnosis of Diabetes Mellitus. PERFORMED BY: [address] [address] PATHOLOGIST [employer] AND BAKER ALINA PADILLA M.D. Performed By: #### GLULS ### # Point of Care testing , GLUCOSE POCT GLUCOMETERS Collected: 04/09/2025 6:47 A M Status: F Source: [facility] TYPE CODE TESTS RESULT OUT OF RANGE REFERENCE UNITS LAB GLUPOC Glucose Poc Glucometers 169 mg/dL Result Comment: Random Gluco se Reference Range is dependent on time and content of last meal. Glucose of more than 200 mg/dL in a nonstressed, ambulatory subject supports the diagnosis of Diabetes Mellitus. PERFORMED BY: [address] [place] [address] PATHOLOGIST [employer] AND BAKER ALINA PADILLA M.D. Performed By: #### GLULS ### # Point of Care testing , GLUCOSE POCT GLUCOMETERS Collected: 04/09/2025 5:39 A M Status: F Source: [facility] TYPE CODE TESTS RESULT OUT OF RANGE REFERENCE UNITS LAB GLUPOC Glucose Poc Glucometers 192 mg/dL Result Comment: Random Gluco se Reference Range is dependent on time and content of last meal. Glucose of more than 200 mg/dL in a nonstressed, ambulatory subject supports the diagnosis of Diabetes Mellitus. PERFORMED BY: [address] [place] [address] PATHOLOGIST [employer] AND BAKER ALINA PADILLA M.D. Performed By: #### GLULS ### # Point of Care testing , GLUCOSE POCT GLUCOMETERS Collected: 04/08/2025 8:24 P M Status: F Source: [facility] TYPE CODE TESTS RESULT OUT OF RANGE REFERENCE UNITS LAB GLUPOC Glucose Poc Glucometers 213 mg/dL Result Comment: Random Gluco se Reference Range is dependent on time and content of last meal. Glucose of more than 200 mg/dL in a nonstressed, ambulatory subject supports the diagnosis of Diabetes Mellitus. PERFORMED BY: [place] [id number] PATHOLOGIST [employer] AND BAKER ALINA PADILLA M.D. Performed By: #### GLULS ### # Point of Care testing , GLUCOSE POCT GLUCOMETERS Collected: 04/08/2025 5:18 P M Status: F Source: [facility] TYPE CODE TESTS RESULT OUT OF RANGE REFERENCE UNITS LAB GLUPOC Glucose Poc Glucometers 129 mg/dL Result Comment: Random Gluco se Reference Range is dependent on time and content of last meal. Glucose of more than 200 mg/dL in a nonstressed, ambulatory subject supports the diagnosis of Diabetes Mellitus. PERFORMED BY: [place] [id number] PATHOLOGIST [employer] AND BAKER ALINA PADILLA M.D. Performed By: #### GLULS ### # Point of Care testing , ECH ECHO TRANSTHORACIC Observed: 025 2:31 PM Status: COMPLETED Source: [facility] [place] [id number] Echocardiogram Signed Patient: Lexi Tatum MR#: [id number] : 1945 Acct:[id number] Age/Sex: 79 / F ADM Date: 04/07/25 Loc: Room: [address] [place] [address] Type: ADM IN Attending Dr: Mateo Schaeffer MD Ordering Provider: Juice Mackenzie DO Date of Service: 04/08/25 ECH/ECH echo transthoracic: CHF Copies to: MD Juice Myles DO Lexi Baez PM Patient Location: : 1945 Gender: Female (MM/DD/YYYY) Age: 79 Years Ordering Physician: Juice Mackenzie Height: 59 in Weight: 174.165 lb Performed By: Darek Toledo RDCS, ALDA BSA: 1.74 m2 BP: 140 / 70 mmHg HR: 76 bpm Reason For Study: CHF History: ICM CAD CHF MO AR HTN HLD PAD DM + + Interpretation [...] 1431 Signed By: Daniel Duncan MD 04/08/25 193 GLUCOSE POCT GLUCOMETERS Collected: 04/08/2025 11:54 AM Status: F Source: [facility] TYPE CODE TESTS RESULT OUT OF RANGE REFERENCE UNITS LAB GLUPOC Glucose Poc Glucometers 305 mg/dL Result Comment: Random Gluco se Reference Range is dependent on time and content of last meal. Glucose of more than 200 mg/dL in a nonstressed, ambulatory subject supports the diagnosis of Diabetes Mellitus. PERFORMED BY: [address] [address] PATHOLOGIST [employer] AND BAKER ALINA PADILLA M.D. Performed By: #### GLULS ### # Point of Care testing , GLUCOSE POCT GLUCOMETERS Collected: 04/08/2025 6:40 A M Status: F Source: [facility] TYPE CODE TESTS RESULT OUT OF RANGE REFERENCE UNITS LAB GLUPOC Glucose Poc Glucometers 163 mg/dL Result Comment: Random Gluco se Reference Range is dependent on time and content of last meal. Glucose of more than 200 mg/dL in a nonstressed, ambulatory subject supports the diagnosis of Diabetes Mellitus. PERFORMED BY: [facility] [address] [place] [address] PATHOLOGIST [employer] AND BAKER ALINA PADILLA M.D. Performed By: #### GLULS ### # Point of Care testing , COMPLETE BLOOD COUNT AUTO DIFF Collected: 04/08/2025 6:04 AM Status: F Source: [facility] TYPE CODE TESTS RESULT OUT OF RANGE [...] 0.0-0.2 10*3/uL Result Comment: PERFORMED BY : [facility] [place] [address] PATHOLOGIST [employer] BAKER ALINA PADILLA M.D. Performed By: #### LIPID, A1 C WTH eA, HS TROP, BMP, CBC, MG #### [facility] [address] [place] [id number] [facility] BASIC METABOLIC PANEL Collected: 04/08/2025 6:04 AM Status: F Source: [facility] TYPE CODE TESTS RESULT OUT OF RANGE [...] eA, HS TROP, BMP, CBC, MG #### [facility] [address] [place] [id number] [facility] MAGNESIUM Collected: 6:04 AM Status: F Source: [facility] TYPE CODE TESTS RESULT OUT OF RANGE REFERENCE UNITS LAB MG Magnesium 2.0 Normal 1.9-2.7 mg/dL Performed By: #### LIPID, A1 C WTH eA, HS TROP, BMP, CBC, MG #### [facility] [address] [place] [id number] [facility] LIPID PANEL Collected: 04/08/2025 6:04 AM Status: F Source: [facility] TYPE CODE TESTS RESULT OUT OF RANGE [...] 3.7 <5.0 Result Comment: PERFORMED BY : [place] [address] PATHOLOGIST [employer] BAKER ALINA PADILLA M.D. Performed By: #### LIPID, A1 C WTH eA, HS TROP, BMP, CBC, MG #### [facility] [address] [place], [place] [id number] [facility] TROPONIN I HIGH SENSITIVITY Collected: 04/08/2025 6:0 4 AM Status: F Source: [facility] TYPE CODE TESTS RESULT OUT OF RANGE REFERENCE UNITS LAB HS TROP Troponin I High Sensitivity 48 High 0-15 Result Comment: The Troponin units of report have been changed to meet the Chest Pain Accreditation requirement, element EC5.M1l2. Troponin units are changed from pg/ml to ng/L. Also, the decimal is removed and results are in whole numbers. PERFORMED BY: [place] [address] PATHOLOGIST [employer] AND BAKER ALINA PADILLA M.D. Performed By: #### LIPID, A1 C WTH eA, HS TROP, BMP, CBC, MG #### [facility] [address] [place] [id number] [facility] A1C WITH ESTIMATED AVERAGE GLU Collected: 04/08/2025 6:04 AM Status: F Source: [facility] TYPE CODE TESTS RESULT OUT OF RANGE REFERENCE UNITS LAB .A1C Hemoglobin A1C 6.9 High 4.3-5.6 % Result Comment: Increased ri sk for diabetes: 5.7 - 6.4 diabetes: >6.4 glycemic control for adults with diabetes: <7.0 LAB eAG Estimated Average Glucose 151 mg/dL Result Comment: PERFORMED BY : [place] [address] PATHOLOGIST [employer] AND BAKER ALINA PADILLA M.D. Performed By: #### LIPID, A1 C WTH eA, HS TROP, BMP, CBC, MG #### [place] [id number] [facility] TROPONIN I HIGH SENSITIVITY Collected: 04/08/2025 12:30 AM Status: F Source: [facility] TYPE CODE TESTS RESULT OUT OF RANGE REFERENCE UNITS LAB HS TROP Troponin I High Sensitivity 61 High Off Scale 0-15 Result Comment: Critical Res ult : Called to and read back by: LI LAWRENCE at: 04/08/2025 01:19:37 by:[id number] The Troponin units of report have been changed to meet the Chest Pain Accreditation requirement, element EC5.M1l2. Troponin units are changed from pg/ml to ng/L. Also, the decimal is removed and results are in whole numbers. PERFORMED BY: [place] [address] PATHOLOGIST [employer] BAKER ALINA PADILLA M.D. Performed By: #### HS TROP # ### [place] [id number] [facility] GLUCOSE POCT GLUCOMETERS Collected: 04/08/2025 12:03 AM Status: F Source: [facility] TYPE CODE TESTS RESULT OUT OF RANGE REFERENCE UNITS LAB GLUPOC Glucose Poc Glucometers 109 mg/dL Result Comment: Random Gluco se Reference Range is dependent on time and content of last meal. Glucose of more than 200 mg/dL in a nonstressed, ambulatory subject supports the diagnosis of Diabetes Mellitus. PERFORMED BY: [address] [address] PATHOLOGIST [employer] AND BAKER ALINA PADILLA M.D. Performed By: #### GLULS ### # Point of Care testing , GLUCOSE POCT GLUCOMETERS Collected: 04/04/2025 6:10 A M Status: F Source: [facility] TYPE CODE TESTS RESULT OUT OF RANGE REFERENCE UNITS LAB GLUPOC Glucose Poc Glucometers 155 mg/dL Result Comment: Random Gluco se Reference Range is dependent on time and content of last meal. Glucose of more than 200 mg/dL in a nonstressed, ambulatory subject supports the diagnosis of Diabetes Mellitus. PERFORMED BY: [address] [place] [address] PATHOLOGIST [employer] AND BAKER ALINA PADILLA M.D. Performed By: #### GLULS ### # Point of Care testing , GLUCOSE POCT GLUCOMETERS Collected: 04/04/2025 2:09 A M Status: F Source: [facility] TYPE CODE TESTS RESULT OUT OF RANGE REFERENCE UNITS LAB GLUPOC Glucose Poc Glucometers 166 mg/dL Result Comment: Random Gluco se Reference Range is dependent on time and content of last meal. Glucose of more than 200 mg/dL in a nonstressed, ambulatory subject supports the diagnosis of Diabetes Mellitus. PERFORMED BY: [address] [place] [address] PATHOLOGIST [employer] BAK[employer] ALINA PADILLA M.D. Performed By: #### GLULS ### # Point of Care testing , GLUCOSE POCT GLUCOMETERS Collected: 04/03/2025 11:09 PM Status: F Source: [facility] TYPE CODE TESTS RESULT OUT OF RANGE REFERENCE UNITS LAB GLUPOC Glucose Poc Glucometers 141 mg/dL Result Comment: Random Gluco se Reference Range is dependent on time and content of last meal. Glucose of more than 200 mg/dL in a nonstressed, ambulatory subject supports the diagnosis of Diabetes Mellitus. PERFORMED BY: [facility] [address] [place] [address] PATHOLOGIST [employer] BAKER ALINA PADILLA M.D. Performed By: #### GLULS ### # Point of Care testing , GLUCOSE POCT GLUCOMETERS Collected: 04/03/2025 7:50 P M Status: F Source: [facility] TYPE CODE TESTS RESULT OUT OF RANGE REFERENCE UNITS LAB GLUPOC Glucose Poc Glucometers 187 mg/dL Result Comment: Random Gluco se Reference Range is dependent on time and content of last meal. Glucose of more than 200 mg/dL in a nonstressed, ambulatory subject supports the diagnosis of Diabetes Mellitus. PERFORMED BY: [address] [place] [address] PATHOLOGIST [employer] BAK[employer] ALINA PADILLA M.D. Performed By: #### GLULS ### # Point of Care testing , GLUCOSE POCT GLUCOMETERS Collected: 04/03/2025 4:27 P M Status: F Source: [facility] TYPE CODE TESTS RESULT OUT OF RANGE REFERENCE UNITS LAB GLUPOC Glucose Poc Glucometers 332 mg/dL Result Comment: Random Gluco se Reference Range is dependent on time and content of last meal. Glucose of more than 200 mg/dL in a nonstressed, ambulatory subject supports the diagnosis of Diabetes Mellitus. LAB COMM1 Commemt1 Glu2: Cleaned Meter Result Comment: PERFORMED BY : [address] [address] PATHOLOGIST [employer] BAK[employer] ALINA PADILLA M.D. Performed By: #### GLULS ### # Point of Care testing , GLUCOSE POCT GLUCOMETERS Collected: 04/03/2025 11:52 AM Status: F Source: [facility] TYPE CODE TESTS RESULT OUT OF RANGE REFERENCE UNITS LAB GLUPOC Glucose Poc Glucometers 191 mg/dL Result Comment: Random Gluco se Reference Range is dependent on time and content of last meal. Glucose of more than 200 mg/dL in a nonstressed, ambulatory subject supports the diagnosis of Diabetes Mellitus. LAB COMM1 Commemt1 Glu2: Cleaned Meter Result Comment: PERFORMED BY : [address] [address] PATHOLOGIST [employer] BAK[employer] ALINA PADILLA M.D. Performed By: #### GLULS ### # Point of Care testing , GLUCOSE POCT GLUCOMETERS Collected: 04/03/2025 5:42 A M Status: F Source: [facility] TYPE CODE TESTS RESULT OUT OF RANGE REFERENCE UNITS LAB GLUPOC Glucose Poc Glucometers 81 mg/dL Result Comment: Random Gluco se Reference Range is dependent on time and content of last meal. Glucose of more than 200 mg/dL in a nonstressed, ambulatory subject supports the diagnosis of Diabetes Mellitus. LAB COMM1 Commemt1 Glu2: Cleaned Meter Result Comment: PERFORMED BY : [address] [place] [address] PATHOLOGIST [employer]AK[employer] ALINA PADILLA M.D. Performed By: #### GLULS ### # Point of Care testing , GLUCOSE POCT GLUCOMETERS Collected: 04/03/2025 5:28 A M Status: F Source: [facility] TYPE CODE TESTS RESULT OUT OF RANGE REFERENCE UNITS LAB GLUPOC Glucose Poc Glucometers 67 mg/dL Result Comment: Random Gluco se Reference Range is dependent on time and content of last meal. Glucose of more than 200 mg/dL in a nonstressed, ambulatory subject supports the diagnosis of Diabetes Mellitus. PERFORMED BY: [address] [place] [address] PATHOLOGIST [employer] ALINA PADILLA M.D. Performed By: #### GLULS ### # Point of Care testing , GLUCOSE POCT GLUCOMETERS Collected: 04/03/2025 5:10 A M Status: F Source: [facility] TYPE CODE TESTS RESULT OUT OF RANGE REFERENCE UNITS LAB GLUPOC Glucose Poc Glucometers 61 mg/dL Result Comment: Random Gluco se Reference Range is dependent on time and content of last meal. Glucose of more than 200 mg/dL in a nonstressed, ambulatory subject supports the diagnosis of Diabetes Mellitus. LAB COMM1 Commemt1 Glu2: Cleaned Meter Result Comment: PERFORMED BY : [address] [place] [address] PATHOLOGIST [employer] ALINA PADILLA M.D. Performed By: #### GLULS ### # Point of Care testing , GLUCOSE POCT GLUCOMETERS Collected: 04/02/2025 8:33 P M Status: F Source: [facility] TYPE CODE TESTS RESULT OUT OF RANGE REFERENCE UNITS LAB GLUPOC Glucose Poc Glucometers 105 mg/dL Result Comment: Random Gluco se Reference Range is dependent on time and content of last meal. Glucose of more than 200 mg/dL in a nonstressed, ambulatory subject supports the diagnosis of Diabetes Mellitus. PERFORMED BY: [address] [place] [address] PATHOLOGIST [employer] ALINA PADILLA M.D. Performed By: #### GLULS ### # Point of Care testing , GLUCOSE POCT GLUCOMETERS Collected: 04/02/2025 4:26 P M Status: F Source: [facility] TYPE CODE TESTS RESULT OUT OF RANGE REFERENCE UNITS LAB GLUPOC Glucose Poc Glucometers 175 mg/dL Result Comment: Random Gluco se Reference Range is dependent on time and content of last meal. Glucose of more than 200 mg/dL in a nonstressed, ambulatory subject supports the diagnosis of Diabetes Mellitus. PERFORMED BY: [address] [place] [address] PATHOLOGIST [employer] ALINA PADILLA M.D. Performed By: #### GLULS ### # Point of Care testing , GLUCOSE POCT GLUCOMETERS Collected: 04/02/2025 2:57 P M Status: F Source: [facility] TYPE CODE TESTS RESULT OUT OF RANGE REFERENCE UNITS LAB GLUPOC Glucose Poc Glucometers 178 mg/dL Result Comment: Random Gluco se Reference Range is dependent on time and content of last meal. Glucose of more than 200 mg/dL in a nonstressed, ambulatory subject supports the diagnosis of Diabetes Mellitus. PERFORMED BY: [address] [place] [address] PATHOLOGIST [employer] ALINA PADILLA M.D. Performed By: #### GLULS ### # Point of Care testing , GLUCOSE POCT GLUCOMETERS Collected: 04/02/2025 11:54 AM Status: F Source: [facility] TYPE CODE TESTS RESULT OUT OF RANGE REFERENCE UNITS LAB GLUPOC Glucose Poc Glucometers 146 mg/dL Result Comment: Random Gluco se Reference Range is dependent on time and content of last meal. Glucose of more than 200 mg/dL in a nonstressed, ambulatory subject supports the diagnosis of Diabetes Mellitus. PERFORMED BY: [address] [place] [address] PATHOLOGIST [employer] BAK[employer] ALINA PADILLA M.D. Performed By: #### GLULS ### # Point of Care testing , GLUCOSE POCT GLUCOMETERS Collected: 04/02/2025 6:14 A M Status: F Source: [facility] TYPE CODE TESTS RESULT OUT OF RANGE REFERENCE UNITS LAB GLUPOC Glucose Poc Glucometers 74 mg/dL Result Comment: Random Gluco se Reference Range is dependent on time and content of last meal. Glucose of more than 200 mg/dL in a nonstressed, ambulatory subject supports the diagnosis of Diabetes Mellitus. LAB COMM1 Commemt1 Glu2: Cleaned Meter Result Comment: PERFORMED BY : [address] [place] [address] PATHOLOGIST [employer]AK[employer] ALINA PADILLA M.D. Performed By: #### GLULS ### # Point of Care testing , GLUCOSE POCT GLUCOMETERS Collected: 04/02/2025 4:27 A M Status: F Source: [facility] TYPE CODE TESTS RESULT OUT OF RANGE REFERENCE UNITS LAB GLUPOC Glucose Poc Glucometers 94 mg/dL Result Comment: Random Gluco se Reference Range is dependent on time and content of last meal. Glucose of more than 200 mg/dL in a nonstressed, ambulatory subject supports the diagnosis of Diabetes Mellitus. LAB COMM1 Commemt1 Glu2: Cleaned Meter Result Comment: PERFORMED BY : [address] [place] [address] PATHOLOGIST [employer] ALINA PADILLA M.D. Performed By: #### GLULS ### # Point of Care testing , GLUCOSE POCT GLUCOMETERS Collected: 04/02/2025 1:44 A M Status: F Source: [facility] TYPE CODE TESTS RESULT OUT OF RANGE REFERENCE UNITS LAB GLUPOC Glucose Poc Glucometers 75 mg/dL Result Comment: Random Gluco se Reference Range is dependent on time and content of last meal. Glucose of more than 200 mg/dL in a nonstressed, ambulatory subject supports the diagnosis of Diabetes Mellitus. LAB COMM1 Commemt1 Glu2: Cleaned Meter Result Comment: PERFORMED BY : [address] [place] [address] PATHOLOGIST [employer]AK[employer] ALINA PADILLA M.D. Performed By: #### GLULS ### # Point of Care testing , GLUCOSE POCT GLUCOMETERS Collected: 04/02/2025 1:23 A M Status: F Source: [facility] TYPE CODE TESTS RESULT OUT OF RANGE REFERENCE UNITS LAB GLUPOC Glucose Poc Glucometers 62 mg/dL Result Comment: Random Gluco se Reference Range is dependent on time and content of last meal. Glucose of more than 200 mg/dL in a nonstressed, ambulatory subject supports the diagnosis of Diabetes Mellitus. LAB COMM1 Commemt1 Glu2: Cleaned Meter Result Comment: PERFORMED BY : [address] [place] [address] PATHOLOGIST [employer] ALINA PADILLA M.D. Performed By: #### GLULS ### # Point of Care testing , GLUCOSE POCT GLUCOMETERS Collected: 04/01/2025 8:42 P M Status: F Source: [facility] TYPE CODE TESTS RESULT OUT OF RANGE REFERENCE UNITS LAB GLUPOC Glucose Poc Glucometers 161 mg/dL Result Comment: Random Gluco se Reference Range is dependent on time and content of last meal. Glucose of more than 200 mg/dL in a nonstressed, ambulatory subject supports the diagnosis of Diabetes Mellitus. LAB COMM1 Commemt1 Glu2: Cleaned Meter Result Comment: PERFORMED BY : [address] [address] PATHOLOGIST [employer]AK[employer] ALINA PADILLA M.D. Performed By: #### GLULS ### # Point of Care testing , GLUCOSE POCT GLUCOMETERS Collected: 04/01/2025 6:17 P M Status: F Source: [facility] TYPE CODE TESTS RESULT OUT OF RANGE REFERENCE UNITS LAB GLUPOC Glucose Poc Glucometers 108 mg/dL Result Comment: Random Gluco se Reference Range is dependent on time and content of last meal. Glucose of more than 200 mg/dL in a nonstressed, ambulatory subject supports the diagnosis of Diabetes Mellitus. PERFORMED BY: [address] [place] [address] PATHOLOGIST [employer] BAK[employer] ALINA PADILLA M.D. Performed By: #### GLULS ### # Point of Care testing , GLUCOSE POCT GLUCOMETERS Collected: 04/01/2025 6:02 P M Status: F Source: [facility] TYPE CODE TESTS RESULT OUT OF RANGE REFERENCE UNITS LAB GLUPOC Glucose Poc Glucometers 62 mg/dL Result Comment: Random Gluco se Reference Range is dependent on time and content of last meal. Glucose of more than 200 mg/dL in a nonstressed, ambulatory subject supports the diagnosis of Diabetes Mellitus. PERFORMED BY: [address] [place] [address] PATHOLOGIST [employer] BAK[employer] ALINA PADILLA M.D. Performed By: #### GLULS ### # Point of Care testing , GLUCOSE POCT GLUCOMETERS Collected: 04/01/2025 5:44 P M Status: F Source: [facility] TYPE CODE TESTS RESULT OUT OF RANGE REFERENCE UNITS LAB GLUPOC Glucose Poc Glucometers 59 Low Off Scale mg/dL Result Comment: Random Gluco se Reference Range is dependent on time and content of last meal. Glucose of more than 200 mg/dL in a nonstressed, ambulatory subject supports the diagnosis of Diabetes Mellitus. LAB COMM1 Commemt1 Result Comment: Glu2: FOLLOW HYPOGLYCEMIC PERFORMED BY: [address] [place] [address] PATHOLOGIST [employer] BAK[employer] ALINA PADILLA M.D. Performed By: #### GLULS ### # Point of Care testing , GLUCOSE POCT GLUCOMETERS Collected: 04/01/2025 4:26 P M Status: F Source: [facility] TYPE CODE TESTS RESULT OUT OF RANGE REFERENCE UNITS LAB GLUPOC Glucose Poc Glucometers 97 mg/dL Result Comment: Random Gluco se Reference Range is dependent on time and content of last meal. Glucose of more than 200 mg/dL in a nonstressed, ambulatory subject supports the diagnosis of Diabetes Mellitus. LAB COMM1 Commemt1 Glu2: Cleaned Meter Result Comment: PERFORMED BY : [address] [place] [address] PATHOLOGIST [employer]AK[employer] ALINA PADILLA M.D. Performed By: #### GLULS ### # Point of Care testing , BASIC METABOLIC PANEL Collected: 04/01/2025 1:12 PM Status: F Source: [facility] TYPE CODE TESTS RESULT OUT OF RANGE [...] Pharmacy 25.05 Result Comment: PERFORMED BY : [place] [address] PATHOLOGIST [employer] BAKER ALINA PADILLA M.D. Performed By: #### BMP #### [address] GLUCOSE POCT GLUCOMETERS Collected: 04/01/2025 12:04 PM Status: F Source: [facility] TYPE CODE TESTS RESULT OUT OF RANGE REFERENCE UNITS LAB GLUPOC Glucose Poc Glucometers 128 mg/dL Result Comment: Random Gluco se Reference Range is dependent on time and content of last meal. Glucose of more than 200 mg/dL in a nonstressed, ambulatory subject supports the diagnosis of Diabetes Mellitus. LAB COMM1 Commemt1 Glu2: Cleaned Meter Result Comment: PERFORMED BY : [place] [address] PATHOLOGIST [employer] BAK[employer] ALINA PADILLA M.D. Performed By: #### GLULS ### # Point of Care testing , GLUCOSE POCT GLUCOMETERS Collected: 04/01/2025 6:36 A M Status: F Source: [facility] TYPE CODE TESTS RESULT OUT OF RANGE REFERENCE UNITS LAB GLUPOC Glucose Poc Glucometers 121 mg/dL Result Comment: Random Gluco se Reference Range is dependent on time and content of last meal. Glucose of more than 200 mg/dL in a nonstressed, ambulatory subject supports the diagnosis of Diabetes Mellitus. PERFORMED BY: [address] [place] [address] PATHOLOGIST [employer] BAK[employer] ALINA PADILLA M.D. Performed By: #### GLULS ### # Point of Care testing , GLUCOSE POCT GLUCOMETERS Collected: 04/01/2025 6:09 A M Status: F Source: [facility] TYPE CODE TESTS RESULT OUT OF RANGE REFERENCE UNITS LAB GLUPOC Glucose Poc Glucometers 79 mg/dL Result Comment: Random Gluco se Reference Range is dependent on time and content of last meal. Glucose of more than 200 mg/dL in a nonstressed, ambulatory subject supports the diagnosis of Diabetes Mellitus. PERFORMED BY: [address] [address] PATHOLOGIST [employer]AK[employer] ALINA PADILLA M.D. Performed By: #### GLULS ### # Point of Care testing , GLUCOSE POCT GLUCOMETERS Collected: 04/01/2025 5:46 A M Status: F Source: [facility] TYPE CODE TESTS RESULT OUT OF RANGE REFERENCE UNITS LAB GLUPOC Glucose Poc Glucometers 64 mg/dL Result Comment: Random Gluco se Reference Range is dependent on time and content of last meal. Glucose of more than 200 mg/dL in a nonstressed, ambulatory subject supports the diagnosis of Diabetes Mellitus. PERFORMED BY: [address] [address] PATHOLOGIST [employer]AK[employer] ALINA PADILLA M.D. Performed By: #### GLULS ### # Point of Care testing , GLUCOSE POCT GLUCOMETERS Collected: 04/01/2025 2:13 A M Status: F Source: [facility] TYPE CODE TESTS RESULT OUT OF RANGE REFERENCE UNITS LAB GLUPOC Glucose Poc Glucometers 140 mg/dL Result Comment: Random Gluco se Reference Range is dependent on time and content of last meal. Glucose of more than 200 mg/dL in a nonstressed, ambulatory subject supports the diagnosis of Diabetes Mellitus. PERFORMED BY: [address] [address] PATHOLOGIST [employer] BAKER ALINA PADILLA M.D. Performed By: #### GLULS ### # Point of Care testing , GLUCOSE POCT GLUCOMETERS Collected: 03/31/2025 8:19 P M Status: F Source: [facility] TYPE CODE TESTS RESULT OUT OF RANGE REFERENCE UNITS LAB GLUPOC Glucose Poc Glucometers 264 mg/dL Result Comment: Random Gluco se Reference Range is dependent on time and content of last meal. Glucose of more than 200 mg/dL in a nonstressed, ambulatory subject supports the diagnosis of Diabetes Mellitus. PERFORMED BY: [facility] [address] [place] [address] PATHOLOGIST [employer] BAKER ALINA PADILLA M.D. Performed By: #### GLULS ### # Point of Care testing , GLUCOSE POCT GLUCOMETERS Collected: 03/31/2025 4:43 P M Status: F Source: [facility] TYPE CODE TESTS RESULT OUT OF RANGE REFERENCE UNITS LAB GLUPOC Glucose Poc Glucometers 263 mg/dL Result Comment: Random Gluco se Reference Range is dependent on time and content of last meal. Glucose of more than 200 mg/dL in a nonstressed, ambulatory subject supports the diagnosis of Diabetes Mellitus. PERFORMED BY: [facility] [address] [place] [address] PATHOLOGIST [employer] BAKER ALINA PADILLA M.D. Performed By: #### GLULS ### # Point of Care testing , COMPLETE BLOOD COUNT AUTO DIFF Collected: 03/31/2025 1:55 PM Status: F Source: [facility] TYPE CODE TESTS RESULT OUT OF RANGE [...] 0.0-0.2 10*3/uL Result Comment: PERFORMED BY : [place] [address] PATHOLOGIST [employer] BAKER ALINA PADILLA M.D. Performed By: #### BNP, CBC #### [address] B-TYPE NATRIURETIC PEPTIDE Collected: 03/31/2025 1:55 PM Status: F Source: [facility] TYPE CODE TESTS RESULT OUT OF RANGE REFERENCE UNITS LAB BNP B-Type Natriuretic Peptide 791.0 High 5-100 pg/mL Result Comment: PERFORMED BY : [place] [address] PATHOLOGIST [employer]AK[employer] ALINA PADILLA M.D. Performed By: #### BNP, CBC #### [facility] [address] [place] [address] GLUCOSE POCT GLUCOMETERS Collected: 03/31/2025 11:58 AM Status: F Source: [facility] TYPE CODE TESTS RESULT OUT OF RANGE REFERENCE UNITS LAB GLUPOC Glucose Poc Glucometers 126 mg/dL Result Comment: Random Gluco se Reference Range is dependent on time and content of last meal. Glucose of more than 200 mg/dL in a nonstressed, ambulatory subject supports the diagnosis of Diabetes Mellitus. PERFORMED BY: [address] [place] [address] PATHOLOGIST [employer]AK[employer] ALINA PADILLA M.D. Performed By: #### GLULS ### # Point of Care testing , GLUCOSE POCT GLUCOMETERS Collected: 03/31/2025 8:08 A M Status: F Source: [facility] TYPE CODE TESTS RESULT OUT OF RANGE REFERENCE UNITS LAB GLUPOC Glucose Poc Glucometers 120 mg/dL Result Comment: Random Gluco se Reference Range is dependent on time and content of last meal. Glucose of more than 200 mg/dL in a nonstressed, ambulatory subject supports the diagnosis of Diabetes Mellitus. LAB COMM1 Commemt1 Glu2: Cleaned Meter Result Comment: PERFORMED BY : [address] [place] [address] PATHOLOGIST [employer] ALINA PADILLA M.D. Performed By: #### GLULS ### # Point of Care testing , GLUCOSE POCT GLUCOMETERS Collected: 03/31/2025 7:43 A M Status: F Source: [facility] TYPE CODE TESTS RESULT OUT OF RANGE REFERENCE UNITS LAB GLUPOC Glucose Poc Glucometers 68 mg/dL Result Comment: Random Gluco se Reference Range is dependent on time and content of last meal. Glucose of more than 200 mg/dL in a nonstressed, ambulatory subject supports the diagnosis of Diabetes Mellitus. PERFORMED BY: [address] [place] [address] PATHOLOGIST [employer] BAK[employer] ALINA PADILLA M.D. Performed By: #### GLULS ### # Point of Care testing , GLUCOSE POCT GLUCOMETERS Collected: 03/31/2025 7:23 A M Status: F Source: [facility] TYPE CODE TESTS RESULT OUT OF RANGE REFERENCE UNITS LAB GLUPOC Glucose Poc Glucometers 61 mg/dL Result Comment: Random Gluco se Reference Range is dependent on time and content of last meal. Glucose of more than 200 mg/dL in a nonstressed, ambulatory subject supports the diagnosis of Diabetes Mellitus. PERFORMED BY: [address] [place] [address] PATHOLOGIST [employer]AKER ALINA PADILLA M.D. Performed By: #### GLULS ### # Point of Care testing , GLUCOSE POCT GLUCOMETERS Collected: 03/30/2025 8:19 P M Status: F Source: [facility] TYPE CODE TESTS RESULT OUT OF RANGE REFERENCE UNITS LAB GLUPOC Glucose Poc Glucometers 288 mg/dL Result Comment: Random Gluco se Reference Range is dependent on time and content of last meal. Glucose of more than 200 mg/dL in a nonstressed, ambulatory subject supports the diagnosis of Diabetes Mellitus. PERFORMED BY: [address] [place] [address] PATHOLOGIST [employer]AK[employer] ALINA PADILLA M.D. Performed By: #### GLULS ### # Point of Care testing , GLUCOSE POCT GLUCOMETERS Collected: 03/30/2025 4:33 P M Status: F Source: [facility] TYPE CODE TESTS RESULT OUT OF RANGE REFERENCE UNITS LAB GLUPOC Glucose Poc Glucometers 216 mg/dL Result Comment: Random Gluco se Reference Range is dependent on time and content of last meal. Glucose of more than 200 mg/dL in a nonstressed, ambulatory subject supports the diagnosis of Diabetes Mellitus. PERFORMED BY: [address] [place] [address] PATHOLOGIST [employer]AKER ALINA PADILLA M.D. Performed By: #### GLULS ### # Point of Care testing , GLUCOSE POCT GLUCOMETERS Collected: 03/30/2025 11:45 AM Status: F Source: [facility] TYPE CODE TESTS RESULT OUT OF RANGE REFERENCE UNITS LAB GLUPOC Glucose Poc Glucometers 109 mg/dL Result Comment: Random Gluco se Reference Range is dependent on time and content of last meal. Glucose of more than 200 mg/dL in a nonstressed, ambulatory subject supports the diagnosis of Diabetes Mellitus. LAB COMM1 Commemt1 Glu2: Cleaned Meter Result Comment: PERFORMED BY : [address] [place] [address] PATHOLOGIST [employer] BAKER ALINA PADILLA M.D. Performed By: #### GLULS ### # Point of Care testing , GLUCOSE POCT GLUCOMETERS Collected: 03/30/2025 6:16 A M Status: F Source: [facility] TYPE CODE TESTS RESULT OUT OF RANGE REFERENCE UNITS LAB GLUPOC Glucose Poc Glucometers 108 mg/dL Result Comment: Random Gluco se Reference Range is dependent on time and content of last meal. Glucose of more than 200 mg/dL in a nonstressed, ambulatory subject supports the diagnosis of Diabetes Mellitus. PERFORMED BY: [address] [place] [address] PATHOLOGIST [employer]AK[employer] ALINA PADILLA M.D. Performed By: #### GLULS ### # Point of Care testing , GLUCOSE POCT GLUCOMETERS Collected: 03/30/2025 1:12 A M Status: F Source: [facility] TYPE CODE TESTS RESULT OUT OF RANGE REFERENCE UNITS LAB GLUPOC Glucose Poc Glucometers 222 mg/dL Result Comment: Random Gluco se Reference Range is dependent on time and content of last meal. Glucose of more than 200 mg/dL in a nonstressed, ambulatory subject supports the diagnosis of Diabetes Mellitus. PERFORMED BY: [address] [place] [address] PATHOLOGIST [employer] BAK[employer] ALINA PADILLA M.D. Performed By: #### GLULS ### # Point of Care testing , GLUCOSE POCT GLUCOMETERS Collected: 03/29/2025 8:47 P M Status: F Source: [facility] [facility] TYPE CODE TESTS RESULT OUT OF RANGE REFERENCE UNITS LAB GLUPOC Glucose Poc Glucometers 326 mg/dL Result Comment: Random Gluco se Reference Range is dependent on time and content of last meal. Glucose of more than 200 mg/dL in a nonstressed, ambulatory subject supports the diagnosis of Diabetes Mellitus. LAB COMM1 Commemt1 Glu2: Cleaned Meter Result Comment: PERFORMED BY : [address] [place] [address] PATHOLOGIST [employer] BAKER ALINA PADILLA M.D. Performed By: #### GLULS ### # Point of Care testing , GLUCOSE POCT GLUCOMETERS Collected: 03/29/2025 4:38 P M Status: F Source: [facility] TYPE CODE TESTS RESULT OUT OF RANGE REFERENCE UNITS LAB GLUPOC Glucose Poc Glucometers 258 mg/dL Result Comment: Random Gluco se Reference Range is dependent on time and content of last meal. Glucose of more than 200 mg/dL in a nonstressed, ambulatory subject supports the diagnosis of Diabetes Mellitus. PERFORMED BY: [facility] [address] [place] [address] PATHOLOGIST [employer] BAKER ALINA PADILLA M.D. Performed By: #### GLULS ### # Point of Care testing , RESPIRATORY (UPPER) PANEL, PCR Observed: 03/29/2025 2:30 PM Status: F Source: [facility] Adenovirus Not detected Bordetella parapertussis Not detected [...] Influenza A H3 Blank Space PERFORMED BY: [facility] [address] [place] [address] PATHOLOGIST [employer] BAKER ALINA PADILLA M.D. Performed By: #### BIOFIRECO VNOTDE, RESP PANEL UPP. #### [place] [id number] [facility] BIOFIRE NOT DETECTED Collected: 03/29/2025 2:30 PM S tatus: F Source: [facility] TYPE CODE TESTS RESULT OUT OF RANGE REFERENCE UNITS LAB BIOFIRECOVNOTDE BioFire Not Detected Not Detected Not Detecte Result Comment: This is a du plicate RP2.1 COVID (PCR) result to be used for statistical tracking purpose only. PERFORMED BY: [place] [address] PATHOLOGIST [employer] BAKER ALINA PADILLA M.D. Performed By: #### BIOFIRECO VNOTDE, RESP PANEL UPP. #### [address] GLUCOSE POCT GLUCOMETERS Collected: 03/29/2025 12:02 PM Status: F Source: [facility] TYPE CODE TESTS RESULT OUT OF RANGE REFERENCE UNITS LAB GLUPOC Glucose Poc Glucometers 145 mg/dL Result Comment: Random Gluco se Reference Range is dependent on time and content of last meal. Glucose of more than 200 mg/dL in a nonstressed, ambulatory subject supports the diagnosis of Diabetes Mellitus. PERFORMED BY: [place] [address] PATHOLOGIST [employer] BAKER ALINA PADILLA M.D. Performed By: #### GLULS ### # Point of Care testing , GLUCOSE POCT GLUCOMETERS Collected: 03/29/2025 6:12 A M Status: F Source: [facility] TYPE CODE TESTS RESULT OUT OF RANGE REFERENCE UNITS LAB GLUPOC Glucose Poc Glucometers 80 mg/dL Result Comment: Random Gluco se Reference Range is dependent on time and content of last meal. Glucose of more than 200 mg/dL in a nonstressed, ambulatory subject supports the diagnosis of Diabetes Mellitus. PERFORMED BY: [address] [address] PATHOLOGIST [employer] BAKER ALINA PADILLA M.D. Performed By: #### GLULS ### # Point of Care testing , GLUCOSE POCT GLUCOMETERS Collected: 03/29/2025 5:24 A M Status: F Source: [facility] TYPE CODE TESTS RESULT OUT OF RANGE REFERENCE UNITS LAB GLUPOC Glucose Poc Glucometers 66 mg/dL Result Comment: Random Gluco se Reference Range is dependent on time and content of last meal. Glucose of more than 200 mg/dL in a nonstressed, ambulatory subject supports the diagnosis of Diabetes Mellitus. PERFORMED BY: [place] [id number] PATHOLOGIST [employer] BAKER ALINA PADILLA M.D. Performed By: #### GLULS ### # Point of Care testing , XR CHEST 1V PORTABLE Observed: 11:55 PM Status: COMPLETED Source: [facility] Main [address] [address] XRay Report Signed Patient: Lexi Tatum MR#: [id number] : 1945 Acct:[id number] Age/Sex: 79 / F ADM Date: 03/22/25 Loc: Room: 8C7429-6 Type: ADM IN Attending Dr: Farhat Almeida MD Copies to: Farhat Almeida MD Ordering Provider: Farhat Almieda MD Date of Service: 03/28/25 XR/XR chest [...] Ponce M.D. 03/28/2025 11:57 PM Dictation Location: [facility]17 Transcribed By: [facility] 03/28/252356 Dictated By: Rhett Ponce II, MD 03/28/252354 Signed By: <Electronically signed by Rhett Ponce II, MD in OV> 03/28/252356 GLUCOSE POCT GLUCOMETERS Collected: 03/28/2025 8:20 P M Status: F Source: [facility] TYPE CODE TESTS RESULT OUT OF RANGE REFERENCE UNITS LAB GLUPOC Glucose Poc Glucometers 293 mg/dL Result Comment: Random Gluco se Reference Range is dependent on time and content of last meal. Glucose of more than 200 mg/dL in a nonstressed, ambulatory subject supports the diagnosis of Diabetes Mellitus. PERFORMED BY: [address] [address] PATHOLOGIST [employer] BAKER ALINA PADILLA M.D. Performed By: #### GLULS ### # Point of Care testing , GLUCOSE POCT GLUCOMETERS Collected: 03/28/2025 4:59 P M Status: F Source: [facility] TYPE CODE TESTS RESULT OUT OF RANGE REFERENCE UNITS LAB GLUPOC Glucose Poc Glucometers 277 mg/dL Result Comment: Random Gluco se Reference Range is dependent on time and content of last meal. Glucose of more than 200 mg/dL in a nonstressed, ambulatory subject supports the diagnosis of Diabetes Mellitus. PERFORMED BY: [address] [place] [address] PATHOLOGIST [employer] BAKER ALINA PADILLA M.D. Performed By: #### GLULS ### # Point of Care testing , GLUCOSE POCT GLUCOMETERS Collected: 03/28/2025 11:31 AM Status: F Source: [facility] TYPE CODE TESTS RESULT OUT OF RANGE REFERENCE UNITS LAB GLUPOC Glucose Poc Glucometers 209 mg/dL Result Comment: Random Gluco se Reference Range is dependent on time and content of last meal. Glucose of more than 200 mg/dL in a nonstressed, ambulatory subject supports the diagnosis of Diabetes Mellitus. PERFORMED BY: [address] [address] PATHOLOGIST [employer] BAKER ALINA PADILLA M.D. Performed By: #### GLULS ### # Point of Care testing , GLUCOSE POCT GLUCOMETERS Collected: 03/28/2025 8:06 A M Status: F Source: [facility] TYPE CODE TESTS RESULT OUT OF RANGE REFERENCE UNITS LAB GLUPOC Glucose Poc Glucometers 92 mg/dL Result Comment: Random Gluco se Reference Range is dependent on time and content of last meal. Glucose of more than 200 mg/dL in a nonstressed, ambulatory subject supports the diagnosis of Diabetes Mellitus. PERFORMED BY: [address] [place] [address] PATHOLOGIST [employer] BAKER ALINA PADILLA M.D. Performed By: #### GLULS ### # Point of Care testing , GLUCOSE POCT GLUCOMETERS Collected: 03/27/2025 7:49 P M Status: F Source: [facility] TYPE CODE TESTS RESULT OUT OF RANGE REFERENCE UNITS LAB GLUPOC Glucose Poc Glucometers 333 mg/dL Result Comment: Random Gluco se Reference Range is dependent on time and content of last meal. Glucose of more than 200 mg/dL in a nonstressed, ambulatory subject supports the diagnosis of Diabetes Mellitus. PERFORMED BY: [address] [place] [address] PATHOLOGIST [employer] BAKER ALINA PADILLA M.D. Performed By: #### GLULS ### # Point of Care testing , GLUCOSE POCT GLUCOMETERS Collected: 03/27/2025 4:47 P M Status: F Source: [facility] TYPE CODE TESTS RESULT OUT OF RANGE REFERENCE UNITS LAB GLUPOC Glucose Poc Glucometers 286 mg/dL Result Comment: Random Gluco se Reference Range is dependent on time and content of last meal. Glucose of more than 200 mg/dL in a nonstressed, ambulatory subject supports the diagnosis of Diabetes Mellitus. PERFORMED BY: [address] [place] [address] PATHOLOGIST [employer] BAKER ALINA PADILLA M.D. Performed By: #### GLULS ### # Point of Care testing , GLUCOSE POCT GLUCOMETERS Collected: 03/27/2025 11:38 AM Status: F Source: [facility] TYPE CODE TESTS RESULT OUT OF RANGE REFERENCE UNITS LAB GLUPOC Glucose Poc Glucometers 248 mg/dL Result Comment: Random Gluco se Reference Range is dependent on time and content of last meal. Glucose of more than 200 mg/dL in a nonstressed, ambulatory subject supports the diagnosis of Diabetes Mellitus. LAB COMM1 Commemt1 Glu2: Cleaned Meter Result Comment: PERFORMED BY : [address] [place] [address] PATHOLOGIST [employer] BAKER ALINA PADILLA M.D. Performed By: #### GLULS ### # Point of Care testing , DIPSTICK AND MICROSCOPIC Collected: 10:05 AM Status: F Source: [facility] Order Comment: Name Collecti on Type:: Clean-Voided Midstream TYPE CODE TESTS RESULT OUT OF RANGE REFERENCE UNITS LAB UCOL Color,Urine Light-Yellow Yellow LAB UAPP Appearance,Uri ne Cloudy Abnormal Alert Clear LAB USG Specificy [place],Urine 1.016 Normal 1.001-1.030 LAB UPH pH,Urine 5.5 Normal 5.0-9.0 LAB ULE Leukocyte Esterase,Urine 4+ Negative LAB UNIT Nitrite,Urine Negative Negative LAB UPRO Protein,Urine 70 Negative mg/dL LAB UGL Glucose,Urine (UA) Normal Normal mg/dL LAB UKET Ketones,Urine Negative Negative LAB UURO Urobilinogen,U rine Normal Normal mg/dL LAB UBIL Bilirubin,Urin e Negative Negative LAB UBLD Occult Blood,Urine 2+ Negative Result Comment: PERFORMED BY : [address] [place] [address] PATHOLOGIST [employer] AND BAKER ALINA PADILLA M.D. LAB URBC RBC,Urine 50-100 0-4 [HPF] LAB UWBC WBC,Urine 20-49 0-4 [HPF] LAB UCLUMPWBC WBC CLUMP, Urine Rare None Seen [LPF] LAB USQEPI Squamous Epithelial Cell,Urine 3-4 0-2 [HPF] LAB UBACT Bacteria,Urine Rare None Seen [HPF] LAB UHYALC Hyaline Casts,Urine None 0-8 [LPF] LAB MUCUS Mucus,Urine Rare [LPF] Result Comment: PERFORMED BY : [address] [place] [id number] PATHOLOGIST [employer] AND BAKER ALINA PADILLA M.D. Performed By: #### ANAYELI CHURCHILL, CUU #### [address] [address] [facility] URINE CULTURE Observed: 03/27/2025 10:05 AM Status: F Source: [facility] <10,000 colonies/ml mixed bacterial skin contaminants including mixed gram negative bacilli - 2 Days PERFORMED BY: [place] [address] PATHOLOGIST [employer] BAKER ALINA PADILLA M.D. Performed By: #### ANAYELI CHURCHILL, CUU #### [place] [id number] [facility] BASIC METABOLIC PANEL Collected: 03/27/2025 8:30 AM Status: F Source: [facility] TYPE CODE TESTS RESULT OUT OF RANGE [...] Pharmacy 22.64 Result Comment: PERFORMED BY : [place] [address] PATHOLOGIST [employer] AND BAKER ALINA PADILLA M.D. Performed By: #### BMP #### [address] [address] [facility] GLUCOSE POCT GLUCOMETERS Collected: 03/27/2025 7:40 A M Status: F Source: [facility] TYPE CODE TESTS RESULT OUT OF RANGE REFERENCE UNITS LAB GLUPOC Glucose Poc Glucometers 97 mg/dL Result Comment: Random Gluco se Reference Range is dependent on time and content of last meal. Glucose of more than 200 mg/dL in a nonstressed, ambulatory subject supports the diagnosis of Diabetes Mellitus. PERFORMED BY: [address] [place] [address] PATHOLOGIST [employer] AND BAKER ALINA PADILLA M.D. Performed By: #### GLULS ### # Point of Care testing , GLUCOSE POCT GLUCOMETERS Collected: 03/26/2025 8:10 P M Status: F Source: [facility] TYPE CODE TESTS RESULT OUT OF RANGE REFERENCE UNITS LAB GLUPOC Glucose Poc Glucometers 396 mg/dL Result Comment: Random Gluco se Reference Range is dependent on time and content of last meal. Glucose of more than 200 mg/dL in a nonstressed, ambulatory subject supports the diagnosis of Diabetes Mellitus. PERFORMED BY: [address] [place] [address] PATHOLOGIST [employer] AND BAKER ALINA PADILLA M.D. Performed By: #### GLULS ### # Point of Care testing , GLUCOSE POCT GLUCOMETERS Collected: 03/26/2025 4:19 P M Status: F Source: [facility] TYPE CODE TESTS RESULT OUT OF RANGE REFERENCE UNITS LAB GLUPOC Glucose Poc Glucometers 352 mg/dL Result Comment: Random Gluco se Reference Range is dependent on time and content of last meal. Glucose of more than 200 mg/dL in a nonstressed, ambulatory subject supports the diagnosis of Diabetes Mellitus. LAB COMM1 Commemt1 Glu2: Cleaned Meter Result Comment: PERFORMED BY : [facility] [address] [facility] [place] [address] PATHOLOGIST [employer] AND BAKER ALINA PADILLA M.D. Performed By: #### GLULS ### # Point of Care testing , BASIC METABOLIC PANEL Collected: 2024 11:22 AM Status: F Source: [facility] TYPE CODE TESTS RESULT OUT OF RANGE [...] Pharmacy 19.28 Result Comment: PERFORMED BY : [place] [address] PATHOLOGIST [employer] AND BAKER ALINA PADILLA M.D. Performed By: #### CBC, BMP #### [address] GLUCOSE POCT GLUCOMETERS Collected: 03/26/2025 11:22 AM Status: F Source: [facility] TYPE CODE TESTS RESULT OUT OF RANGE REFERENCE UNITS LAB GLUPOC Glucose Poc Glucometers 148 mg/dL Result Comment: Random Gluco se Reference Range is dependent on time and content of last meal. Glucose of more than 200 mg/dL in a nonstressed, ambulatory subject supports the diagnosis of Diabetes Mellitus. LAB COMM1 Commemt1 Glu2: Cleaned Meter Result Comment: PERFORMED BY : [place] [address] PATHOLOGIST [employer] AND BAKER ALINA PADILLA M.D. Performed By: #### GLULS ### # Point of Care testing , COMPLETE BLOOD COUNT AUTO DIFF Collected: 03/26/2025 11:21 AM Status: F Source: [facility] TYPE CODE TESTS RESULT OUT OF RANGE [...] 0.0-0.2 10*3/uL Result Comment: PERFORMED BY : [place] [address] PATHOLOGIST [employer] AND BAKER ALINA PADILLA M.D. Performed By: #### CBC, BMP #### [address] GLUCOSE POCT GLUCOMETERS Collected: 03/26/2025 6:32 A M Status: F Source: [facility] TYPE CODE TESTS RESULT OUT OF RANGE REFERENCE UNITS LAB GLUPOC Glucose Poc Glucometers 92 mg/dL Result Comment: Random Gluco se Reference Range is dependent on time and content of last meal. Glucose of more than 200 mg/dL in a nonstressed, ambulatory subject supports the diagnosis of Diabetes Mellitus. PERFORMED BY: [address] [address] PATHOLOGIST [employer] AND BAKER ALINA PADILLA M.D. Performed By: #### GLULS ### # Point of Care testing , GLUCOSE POCT GLUCOMETERS Collected: 03/25/2025 8:40 P M Status: F Source: [facility] TYPE CODE TESTS RESULT OUT OF RANGE REFERENCE UNITS LAB GLUPOC Glucose Poc Glucometers 364 mg/dL Result Comment: Random Gluco se Reference Range is dependent on time and content of last meal. Glucose of more than 200 mg/dL in a nonstressed, ambulatory subject supports the diagnosis of Diabetes Mellitus. PERFORMED BY: [address] [address] PATHOLOGIST [employer] AND BAKER ALINA PADILLA M.D. Performed By: #### GLULS ### # Point of Care testing , GLUCOSE POCT GLUCOMETERS Collected: 03/25/2025 4:41 P M Status: F Source: [facility] TYPE CODE TESTS RESULT OUT OF RANGE REFERENCE UNITS LAB GLUPOC Glucose Poc Glucometers 248 mg/dL Result Comment: Random Gluco se Reference Range is dependent on time and content of last meal. Glucose of more than 200 mg/dL in a nonstressed, ambulatory subject supports the diagnosis of Diabetes Mellitus. PERFORMED BY: [address] [address] PATHOLOGIST [employer] AND BAKER ALINA PADILLA M.D. Performed By: #### GLULS ### # Point of Care testing , GLUCOSE POCT GLUCOMETERS Collected: 03/25/2025 11:25 AM Status: F Source: [facility] TYPE CODE TESTS RESULT OUT OF RANGE REFERENCE UNITS LAB GLUPOC Glucose Poc Glucometers 176 mg/dL Result Comment: Random Gluco se Reference Range is dependent on time and content of last meal. Glucose of more than 200 mg/dL in a nonstressed, ambulatory subject supports the diagnosis of Diabetes Mellitus. LAB COMM1 Commemt1 Glu2: Cleaned Meter Result Comment: PERFORMED BY : [address] [place] [address] PATHOLOGIST [employer] AND BAKER ALINA PAIDLLA M.D. Performed By: #### GLULS ### # Point of Care testing , GLUCOSE POCT GLUCOMETERS Collected: 03/25/2025 6:27 A M Status: F Source: [facility] TYPE CODE TESTS RESULT OUT OF RANGE REFERENCE UNITS LAB GLUPOC Glucose Poc Glucometers 153 mg/dL Result Comment: Random Gluco se Reference Range is dependent on time and content of last meal. Glucose of more than 200 mg/dL in a nonstressed, ambulatory subject supports the diagnosis of Diabetes Mellitus. LAB COMM1 Commemt1 Glu2: Cleaned Meter Result Comment: PERFORMED BY : [address] [place] [address] PATHOLOGIST [employer] AND BAKER ALINA PADILLA M.D. Performed By: #### GLULS ### # Point of Care testing , GLUCOSE POCT GLUCOMETERS Collected: 03/24/2025 8:20 P M Status: F Source: [facility] TYPE CODE TESTS RESULT OUT OF RANGE REFERENCE UNITS LAB GLUPOC Glucose Poc Glucometers 294 mg/dL Result Comment: Random Gluco se Reference Range is dependent on time and content of last meal. Glucose of more than 200 mg/dL in a nonstressed, ambulatory subject supports the diagnosis of Diabetes Mellitus. LAB COMM1 Commemt1 Glu2: Cleaned Meter Result Comment: PERFORMED BY : [address] [place] [address] PATHOLOGIST [employer] AND BAKER ALINA PADILLA M.D. Performed By: #### GLULS ### # Point of Care testing , GLUCOSE POCT GLUCOMETERS Collected: 03/24/2025 5:04 P M Status: F Source: [facility] TYPE CODE TESTS RESULT OUT OF RANGE REFERENCE UNITS LAB GLUPOC Glucose Poc Glucometers 210 mg/dL Result Comment: Random Gluco se Reference Range is dependent on time and content of last meal. Glucose of more than 200 mg/dL in a nonstressed, ambulatory subject supports the diagnosis of Diabetes Mellitus. LAB COMM1 Commemt1 Result Comment: Glu2: WILL N OTIFY DR/[employer] COMM2 Commemt2 Cleaned Meter Result Comment: PERFORMED BY : [address] [place] [address] PATHOLOGIST [employer] AND BAKER ALINA PADILLA M.D. Performed By: #### GLULS ### # Point of Care testing , GLUCOSE POCT GLUCOMETERS Collected: 03/24/2025 12:09 PM Status: F Source: [facility] TYPE CODE TESTS RESULT OUT OF RANGE REFERENCE UNITS LAB GLUPOC Glucose Poc Glucometers 172 mg/dL Result Comment: Random Gluco se Reference Range is dependent on time and content of last meal. Glucose of more than 200 mg/dL in a nonstressed, ambulatory subject supports the diagnosis of Diabetes Mellitus. PERFORMED BY: [address] [address] PATHOLOGIST [employer] AND BAKER ALINA PADILLA M.D. Performed By: #### GLULS ### # Point of Care testing , GLUCOSE POCT GLUCOMETERS Collected: 03/24/2025 6:48 A M Status: F Source: [facility] TYPE CODE TESTS RESULT OUT OF RANGE REFERENCE UNITS LAB GLUPOC Glucose Poc Glucometers 136 mg/dL Result Comment: Random Gluco se Reference Range is dependent on time and content of last meal. Glucose of more than 200 mg/dL in a nonstressed, ambulatory subject supports the diagnosis of Diabetes Mellitus. PERFORMED BY: [address] [address] PATHOLOGIST [employer] AND BAKER ALINA PADILLA M.D. Performed By: #### GLULS ### # Point of Care testing , GLUCOSE POCT GLUCOMETERS Collected: 03/23/2025 8:25 P M Status: F Source: [facility] TYPE CODE TESTS RESULT OUT OF RANGE REFERENCE UNITS LAB GLUPOC Glucose Poc Glucometers 322 mg/dL Result Comment: Random Gluco se Reference Range is dependent on time and content of last meal. Glucose of more than 200 mg/dL in a nonstressed, ambulatory subject supports the diagnosis of Diabetes Mellitus. PERFORMED BY: [address] [address] PATHOLOGIST [employer] AND BAKER ALINA PADILLA M.D. Performed By: #### GLULS ### # Point of Care testing , GLUCOSE POCT GLUCOMETERS Collected: 03/23/2025 4:34 P M Status: F Source: [facility] TYPE CODE TESTS RESULT OUT OF RANGE REFERENCE UNITS LAB GLUPOC Glucose Poc Glucometers 235 mg/dL Result Comment: Random Gluco se Reference Range is dependent on time and content of last meal. Glucose of more than 200 mg/dL in a nonstressed, ambulatory subject supports the diagnosis of Diabetes Mellitus. PERFORMED BY: [address] [place] [address] PATHOLOGIST [employer] AND BAKER ALINA PADILLA M.D. Performed By: #### GLULS ### # Point of Care testing , GLUCOSE POCT GLUCOMETERS Collected: 03/23/2025 11:31 AM Status: F Source: [facility] TYPE CODE TESTS RESULT OUT OF RANGE REFERENCE UNITS LAB GLUPOC Glucose Poc Glucometers 232 mg/dL Result Comment: Random Gluco se Reference Range is dependent on time and content of last meal. Glucose of more than 200 mg/dL in a nonstressed, ambulatory subject supports the diagnosis of Diabetes Mellitus. PERFORMED BY: [address] [place] [address] PATHOLOGIST [employer] AND BAKER ALINA PADILLA M.D. Performed By: #### GLULS ### # Point of Care testing , GLUCOSE POCT GLUCOMETERS Collected: 03/23/2025 6:09 A M Status: F Source: [facility] TYPE CODE TESTS RESULT OUT OF RANGE REFERENCE UNITS LAB GLUPOC Glucose Poc Glucometers 161 mg/dL Result Comment: Random Gluco se Reference Range is dependent on time and content of last meal. Glucose of more than 200 mg/dL in a nonstressed, ambulatory subject supports the diagnosis of Diabetes Mellitus. PERFORMED BY: [facility] [address] [place] [address] PATHOLOGIST [employer] AND BAKER ALINA PADILLA M.D. Performed By: #### GLULS ### # Point of Care testing , COMPLETE BLOOD COUNT AUTO DIFF Collected: 03/23/2025 3:50 AM Status: F Source: [facility] TYPE CODE TESTS RESULT OUT OF RANGE [...] 0.0-0.2 10*3/uL Result Comment: PERFORMED BY : [place] [address] PATHOLOGIST [employer] AND BAKER ALINA PADILLA M.D. Performed By: #### CBC, CMP, PAB #### [address] COMPREHENSIVE METABOLIC PANEL Collected: 03/23/2025 3 :50 AM Status: F Source: [facility] TYPE CODE TESTS RESULT OUT OF RANGE [...] Performed By: #### CBC, CMP, PAB #### [facility] [address] [place] [id number] [place] PREALBUMIN Collected: 3:50 AM Status: F Source: [facility] TYPE CODE TESTS RESULT OUT OF RANGE REFERENCE UNITS LAB PAB Prealbumin 16.6 Low 17.0-34.0 mg/dL Result Comment: PERFORMED BY : [place] [id number] PATHOLOGIST [employer] AND BAKER ALINA PADILLA M.D. Performed By: #### CBC, CMP, PAB #### [facility] [address] [place] [address] [place] GLUCOSE POCT GLUCOMETERS Collected: 03/22/2025 9:02 P M Status: F Source: [facility] TYPE CODE TESTS RESULT OUT OF RANGE REFERENCE UNITS LAB GLUPOC Glucose Poc Glucometers 311 mg/dL Result Comment: Random Gluco se Reference Range is dependent on time and content of last meal. Glucose of more than 200 mg/dL in a nonstressed, ambulatory subject supports the diagnosis of Diabetes Mellitus. PERFORMED BY: [address] [place] [address] PATHOLOGIST [employer] AND BAKER ALINA PADILLA M.D. Performed By: #### GLULS ### # Point of Care testing , GLUCOSE POCT GLUCOMETERS Collected: 03/22/2025 6:22 P M Status: F Source: [facility] TYPE CODE TESTS RESULT OUT OF RANGE REFERENCE UNITS LAB GLUPOC Glucose Poc Glucometers 377 mg/dL Result Comment: Random Gluco se Reference Range is dependent on time and content of last meal. Glucose of more than 200 mg/dL in a nonstressed, ambulatory subject supports the diagnosis of Diabetes Mellitus. LAB COMM1 Commemt1 Glu2: Cleaned Meter Result Comment: PERFORMED BY : [address] [place] [address] PATHOLOGIST [employer] BAKER ALINA PADILLA M.D. Performed By: #### GLULS ### # Point of Care testing , GLUCOSE POCT GLUCOMETERS Collected: 03/22/2025 4:24 P M Status: F Source: [facility] TYPE CODE TESTS RESULT OUT OF RANGE REFERENCE UNITS LAB GLUPOC Glucose Poc Glucometers 456 High Off Scale mg/dL Result Comment: Random Gluco se Reference Range is dependent on time and content of last meal. Glucose of more than 200 mg/dL in a nonstressed, ambulatory subject supports the diagnosis of Diabetes Mellitus. LAB COMM1 Commemt1 Result Comment: Glu2: WILL N OTIFY DR/RN PERFORMED BY: [address] [place] [address] PATHOLOGIST [employer] BAKER ALINA PADILLA M.D. Performed By: #### GLULS ### # Point of Care testing , GLUCOSE POCT GLUCOMETERS Collected: 03/22/2025 4:22 P M Status: F Source: [facility] TYPE CODE TESTS RESULT OUT OF RANGE REFERENCE UNITS LAB GLUPOC Glucose Poc Glucometers 419 High Off Scale mg/dL Result Comment: Random Gluco se Reference Range is dependent on time and content of last meal. Glucose of more than 200 mg/dL in a nonstressed, ambulatory subject supports the diagnosis of Diabetes Mellitus. LAB COMM1 Commemt1 Result Comment: Glu2: WILL NOTIFY DR/NU[employer]STRU[employer] WORKER COMM2 Commemt2 Will Repeat Test Result Comment: PERFORMED BY : [address] [place] [address] PATHOLOGIST [employer] BAKER ALINA PADILLA M.D. Performed By: #### GLULS ### # Point of Care testing , GLUCOSE POCT GLUCOMETERS Collected: 03/22/2025 11:54 AM Status: F Source: [facility] TYPE CODE TESTS RESULT OUT OF RANGE REFERENCE UNITS LAB GLUPOC Glucose Poc Glucometers 378 mg/dL Result Comment: Random Gluco se Reference Range is dependent on time and content of last meal. Glucose of more than 200 mg/dL in a nonstressed, ambulatory subject supports the diagnosis of Diabetes Mellitus. PERFORMED BY: [address] [place] [address] PATHOLOGIST [employer] BAKER ALINA PADILLA M.D. Performed By: #### GLULS ### # Point of Care testing , GLUCOSE POCT GLUCOMETERS Collected: 03/22/2025 8:25 A M Status: F Source: [facility] TYPE CODE TESTS RESULT OUT OF RANGE REFERENCE UNITS LAB GLUPOC Glucose Poc Glucometers 340 mg/dL Result Comment: Random Gluco se Reference Range is dependent on time and content of last meal. Glucose of more than 200 mg/dL in a nonstressed, ambulatory subject supports the diagnosis of Diabetes Mellitus. PERFORMED BY: [address] [place] [address] PATHOLOGIST [employer] BAKER ALINA PADILLA M.D. Performed By: #### GLULS ### # Point of Care testing , COMPLETE BLOOD COUNT AUTO DIFF Collected: 03/22/2025 6:44 AM Status: F Source: [facility] TYPE CODE TESTS RESULT OUT OF RANGE [...] 0.0-0.2 10*3/uL Result Comment: PERFORMED BY : [facility] [address] [place] [address] PATHOLOGIST [employer] BAKER ALINA PADILLA M.D. Performed By: #### BMP, CBC #### [facility] [address] BASIC METABOLIC PANEL Collected: 03/22/2025 6:44 AM Status: F Source: [facility] TYPE CODE TESTS RESULT OUT OF RANGE [...] Pharmacy 21.33 Result Comment: PERFORMED BY : [place] [address] PATHOLOGIST [employer] BAKER ALINA PADILLA M.D. Performed By: #### BMP, CBC #### [address] GLUCOSE POCT GLUCOMETERS Collected: 03/21/2025 9:05 P M Status: F Source: [facility] TYPE CODE TESTS RESULT OUT OF RANGE REFERENCE UNITS LAB GLUPOC Glucose Poc Glucometers 442 High Off Scale mg/dL Result Comment: Random Gluco se Reference Range is dependent on time and content of last meal. Glucose of more than 200 mg/dL in a nonstressed, ambulatory subject supports the diagnosis of Diabetes Mellitus. LAB COMM1 Commemt1 Result Comment: Glu2: Result Not Confirmed PERFORMED BY: [place] [address] PATHOLOGIST [employer] BAKER LAINA PADILLA M.D. Performed By: #### GLULS ### # Point of Care testing , GLUCOSE POCT GLUCOMETERS Collected: 03/21/2025 9:03 P M Status: F Source: [facility] TYPE CODE TESTS RESULT OUT OF RANGE [...] Glu2: Will R epeat Test PERFORMED BY: [place] [id number] PATHOLOGIST [employer] BAKER ALINA PADILLA M.D. Performed By: #### GLULS ### # Point of Care testing , XR LOW PELVIS W/LT X-TABLE HIP Observed: 03/21/2025 4:25 PM Status: COMPLETED Source: [facility] [place] [address] XRay Report Signed Patient: Lexi Tatum MR#: [id number] : 1945 Acct:[id number] Age/Sex: 79 / F ADM Date: 03/21/25 Loc: [place] Room: Type: [facility] Attending Dr: Da Lozano II, MD Copies [...] seen. Impression dictated by: Earnest Iraheta Jr., D.O. 03/21/2025 4:26 PM Dictation Location: [place] [address] Transcribed By: [facility] 03/21/25 162 Dictated By: Earnest Iraheta Jr, DO 03/21/25 162 Signed By: <Electronically signed by Earnest Iraheta Jr, DO in OV> 03/21/25 162 GLUCOSE POCT GLUCOMETERS Collected: 03/21/2025 3:54 P M Status: F Source: [facility] TYPE CODE TESTS RESULT OUT OF RANGE REFERENCE UNITS LAB GLUPOC Glucose Poc Glucometers 188 mg/dL Result Comment: Random Gluco se Reference Range is dependent on time and content of last meal. Glucose of more than 200 mg/dL in a nonstressed, ambulatory subject supports the diagnosis of Diabetes Mellitus. PERFORMED BY: [place] [id number] PATHOLOGIST [employer] BAKER ALINA PADILLA M.D. Performed By: #### GLULS ### # Point of Care testing , XR HIP LT 1V Observed: 03/21/2025 3:43 PM Status: COMPLETED Source: [facility] [place] [address] [address] XRay Report Signed Patient: Lexi Tatum MR#: [id number] : 1945 Acct:[id number] Age/Sex: 79 / F ADM Date: 03/21/25 Loc: [place] Room: Type: [facility] Attending Dr: Da Lozano II, MD Copies [...] study. Impression dictated by: Earnest Iraheta Jr., D.O. 03/21/2025 3:43 PM Dictation Location: [place] [address] Transcribed By: OMAR 03/21/25 1543 Dictated By: Earnest Iraheta Jr, DO 03/21/25 1543 Signed By: <Electronically signed by Earnest Iraheta Jr, DO in OV> 03/21/25 1543 L Observed: 03/21/2025 1:30 PM Status: F Source: [facility] ----- ------- Specimen: [id number] Received: 03/22/25 Status: BENIGNO Leal Num: [id number] Spec Type: Surgical Subm Dr: Da Lozano MD Tissues: A Femoral Head - Other than Fracture (L HIP BONE AND TISSUE) Procedures: HE/2, Gross/Micro L3, Decalcification ----- ------- Age/ Patient Sex Location Account Attending Physician ----- ------- Lexi Tatum 79/F [place] [id number] Da Lozano MD ----- ------- SPEC NUM: [id number] RECD: 03/22/25 STATUS: BENIGNO [place] NUM: [id number] CARLOS: 03/21/[address] [facility] [address]: Da Lozano MD ENTERED: 03/22/[address]: SPEC TYPE: Surgical DEPT: S ENTERED BY: [id number] RECV BY: [id number] ORDERED: HE/2, Gross/Micro L3, Decalcification ORDERED: HE/2, [...] medullary bone is mendez, firm and uniform. White Washer Piler sections are submitted in A1?A2 after decalcification. (2, , [id number] A)MARIANA ----- ------- Specimen: [id number] Received: 03/22/25 Status: FRANCESNina Perla Num: [id number] Spec Type: Surgical Subm Dr: Da Lozano MD Tissues: A Femoral Head - Other than Fracture (L HIP BONE AND TISSUE) Procedures: EDELTamera, Gross/Micro L3, Decalcification ----- ------- Patient: AmiclarannieLexi L [id number] (Continued) ----- ------- Specimen: [id number] Received: 03/22/25 (Continued) Signed (signature on file) Tomi Jean Jr., MD 03/25/25 1548 ----- ------- Specimen: [id number] Received: 03/22/25 Status: BENIGNO [place]la Num: [id number] Spec Type: Surgical Subm Dr: Da Lozano MD Tissues: A Femoral Head - Other than Fracture (L HIP BONE AND TISSUE) Procedures: HE/2, Gross/Micro L3, Decalcification ----- ------- Patient: Lexi Tatum [id number] (Continued) ----- ------- Specimen: [id number] Received: 03/22/25 (Continued) CPT Codes 18296, 37215 ----- ------- ----- ------- Specimen: [id number] Received: 03/22/25 Status: BENIGNO Perla Num: [id number] Spec Type: Surgical Subm Dr: Da Lozano MD Tissues: A Femoral Head - Other than Fracture (L HIP BONE AND TISSUE) Procedures: HE/2, Gross/Micro L3, Decalcification ----- ------- Patient: Lexi Tatum [id number] (Continued) ----- ------- Signed (signature on file) Tomi Jean Jr., MD 03/25/25 1548 GLUCOSE POCT GLUCOMETERS Collected: 03/21/2025 11:10 AM Status: F Source: [facility] TYPE CODE TESTS RESULT OUT OF RANGE REFERENCE UNITS LAB GLUPOC Glucose Poc Glucometers 132 mg/dL Result Comment: Random Gluco se Reference Range is dependent on time and content of last meal. Glucose of more than 200 mg/dL in a nonstressed, ambulatory subject supports the diagnosis of Diabetes Mellitus. PERFORMED BY: [facility] [address] [place] [address] PATHOLOGIST [employer] BAKER ALINA PADILLA M.D. Performed By: #### GLULS ### # Point of Care testing , XR HIP LT MIN 2V(W/WO PELVIS)* Observed: 03/09/2025 4:44 PM Status: COMPLETED Source: [facility] [address] [place] [address] XRay Report Signed Patient: Lexi Tatum MR#: [id number] : 1945 Acct:[id number] Age/Sex: 79 / F ADM Date: 03/09/25 Loc: [facility] Room: Type: [facility] Attending [...] Jr., D.OPaul 03/09/2025 4:45 PM Dictation Location: [facility]-23 Transcribed By: OMAR 03/09/251644 Dictated By: Earnest Iraheta Jr, DO 03/09/251643 Signed By: <Electronically signed by Earnest Iraheta Jr, DO in OV> 03/09/251644 DIPSTICK AND MICROSCOPIC Collected: 3:20 PM Status: F Source: [facility] Order Comment: Name Collecti on Type:: Clean-Voided Midstream TYPE CODE TESTS RESULT OUT OF RANGE REFERENCE UNITS LAB UCOL Color,Urine Light-[place] Abnormal Alert Yellow LAB UAPP Appearance,Ur ine Turbid Abnormal Alert Clear LAB USG Specificy [place],Urine 1.012 Normal 1.001-1.030 LAB UPH pH,Urine 7.0 Normal 5.0-9.0 LAB ULE Leukocyte Esterase,Urin e 4+ Negative LAB UNIT Nitrite,Urine Negative Negative LAB UPRO Protein,Urine 100 Negative mg/dL LAB UGL Glucose,Urine (UA) Normal Normal mg/dL LAB UKET Ketones,Urine Negative Negative LAB UURO Urobilinogen, Urine Normal Normal mg/dL LAB UBIL Bilirubin,Uri ne Negative Negative LAB UBLD Occult Blood,Urine 1+ Negative Result Comment: PERFORMED BY : [address] [address] PATHOLOGIST [employer] BAKER ALINA PADILLA M.D. LAB URBC RBC,Urine 10-19 [...] Rare [LPF] Result Comment: PERFORMED BY : [address] [address] PATHOLOGIST [employer] BAKER ALINA PADILLA M.D. Performed By: #### CUUNAOMYUS #### [address] [address] [facility] URINE CULTURE Observed: 03/03/2025 3:20 PM Status: F Source: [facility] Urine Culture Results >100,000 col/ml Mixed Bacterial Skin Contaminants 2 Days PERFORMED BY: [facility] [address] [place] [address] PATHOLOGIST [employer] BAKER ALINA PADILLA M.D. Performed By: #### NAOMY VELASCO #### [facility] [address] [place] [id number] [facility] COMPLETE BLOOD COUNT AUTO DIFF Collected: 03/03/2025 2:30 PM Status: F Source: [facility] TYPE CODE TESTS RESULT OUT OF RANGE [...] 0.0-0.2 10*3/uL Result Comment: PERFORMED BY : [place] [address] PATHOLOGIST [employer] BAKER ALINA PADILLA M.D. Performed By: #### CBC, BMP #### [address] #### FRUC #### [facility] , BASIC METABOLIC PANEL Collected: 03/03/2025 2:30 PM Status: F Source: [facility] TYPE CODE TESTS RESULT OUT OF RANGE [...] 8.6-10.3 mg/dL Result Comment: PERFORMED BY : [place] [address] PATHOLOGIST [employer] BAKER ALINA PADILLA M.D. Performed By: #### CBC, BMP #### [place] [address] [place] #### FRUC #### [facility] , FRUCTOSAMINE Collected: 2:30 PM Status: F Source: [facility] TYPE CODE TESTS RESULT OUT OF RANGE REFERENCE UNITS LAB FRUC Fructosamine 280 0-285 umol/L Result Comment: Published re ference interval for apparently healthy subjects between age 20 and 60 is 205 - 285 umol/L and in a poorly controlled diabetic population is 228 - 563 umol/L with a mean of 396 umol/L. Performed at: - [facility] [id number] [facility] Counselor: Mohan Talbert PhD, Phone: [phone] PERFORMED BY: [place] [address] PATHOLOGIST [employer] BAKER ALINA PADILLA M.D. Performed By: #### CBC, BMP #### [place] [address] [place] #### FRUC #### [facility] , ECG 12 LEAD ECG Observed: 03/03/2025 2:17 PM Status: COMPLETED Source: [facility] [place] [address] Electrocardiograph Report Signed Patient: Lexi Tatum MR#: [id number] : 1945 Acct:[id number] Age/Sex: 79 / F ADM Date: 03/03/25 Loc: [place] Room: Type: [facility] Attending Dr: Da Lozano II, MD Ordering [...] repolarization abnormality ( R in aVL , [place] product ) Inferior infarct (cited on or [...] Observed: 11/15/2024 3:30 PM Status: F Source: [facility] 30,000 colonies/ml mixed bacterial skin contaminants 2 Days PERFORMED BY: [place] [address] PATHOLOGIST [employer] BAKER RADHA DURAN M.D. Performed By: #### CUU #### [facility] [address] [place] [address] XR KUB Observed: 10/22/2024 11:12 AM Status: COMPLETED Source: [facility] [place] [address] [place] [address] XRay Report Signed Patient: Lexi Tatum MR#: [id number] : 1945 Acct:[id number] Age/Sex: 79 / F ADM Date: 10/22/24 Loc: [place] Room: Type: [facility] Attending Dr: Yaniv Natarajan MD Copies [...] Iraheta Jr., D.OPaul10/22/2024 11:14 AM Dictation Location: [facility]-18 Transcribed By: [facility] 10/22/24 1114 Dictated By: Earnest Iraheta Jr, DO 10/22/24 1112 Signed By: <Electronically signed by Earnest Iraheta Jr, DO in OV> 10/22/24 1114 GLUCOSE POCT GLUCOMETERS Collected: 10/22/2024 9:47 A M Status: F Source: [facility] TYPE CODE TESTS RESULT OUT OF RANGE REFERENCE UNITS LAB GLUPOC Glucose Poc Glucometers 172 mg/dL Result Comment: Random Gluco se Reference Range is dependent on time and content of last meal. Glucose of more than 200 mg/dL in a nonstressed, ambulatory subject supports the diagnosis of Diabetes Mellitus. LAB COMM1 Commemt1 Glu2: Cleaned Meter Result Comment: PERFORMED BY : [place] [address] PATHOLOGIST [employer] BAKER RADHA DURAN M.D. Performed By: #### GLULS ### # Point of Care testing , XR KUB Observed: 10/22/2024 8:54 AM Status: COMPLETED Source: [facility] [place] [address] XRay Report Signed Patient: Lexi Tatum MR#: [id number] : 1945 Acct:[id number] Age/Sex: 79 / F ADM Date: 10/22/24 Loc: [place] Room: Type: [facility] Attending Dr: Yaniv Natarajan MD Copies to: [...] Iraheta Jr., D.O.10/22/2024 8:55 AM Dictation Location: [place] [address] Transcribed By: [facility] 10/22/24 0855 Dictated By: Earnest Iraheta Jr, DO 10/22/24 0854 Signed By: <Electronically signed by Earnest Iraheta Jr, DO in OV> 10/22/24 0855 GLUCOSE POCT GLUCOMETERS Collected: 10/22/2024 6:57 A M Status: F Source: [facility] TYPE CODE TESTS RESULT OUT OF RANGE REFERENCE UNITS LAB GLUPOC Glucose Poc Glucometers 217 mg/dL Result Comment: Random Gluco se Reference Range is dependent on time and content of last meal. Glucose of more than 200 mg/dL in a nonstressed, ambulatory subject supports the diagnosis of Diabetes Mellitus. 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 Performed By: #### GLULS ### # Point of Care testing , URINE CULTURE Observed: 09/26/2024 10:55 PM Status: F Source: [facility] ORGANISM: Aerococcus urinae (O:AERURI) [place] Count >100,000 Organism Comments Organism not Routinely Tested for Susceptibilities Aerococcus urinae and Aerococcus viridans have been described as susceptible to penicillin, amoxicillin, piperacillin, cefepime, rifampin, and nitrofurantoin, and resistant to sulfonamides. PERFORMED BY: [address] [address] PATHOLOGIST [employer] BAKER RADHA DURAN M.D. Performed By: #### CUU #### [facility] [address] [place] [address] [place] PROTEIN CREAT RATIO UR RANDOM Collected : 07/15/2024 12:51 PM Status: F Source: [facility] TYPE CODE TESTS RESULT OUT OF RANGE REFERENCE UNITS LAB UCREA Creatinine, Urine (Random) 25.00 mg/dL Result Comment: No reference range established LAB UTPTT Protein, Urine (Random) 66 High 0-9 mg/dL LAB UTPCREAT Urine Protein/Crea tinine Ratio 2640 High 0-200 mg/g{Cre} Result Comment: PERFORMED BY : [address] [address] PATHOLOGIST [employer] BAKER RADHA DURAN M.D. Performed By: #### PROCRERAT #### [facility] [address] [place] [phone] [place] DIPSTICK AND MICROSCOPIC Collected: 08/2024 12:49 PM Status: F Source: [facility] Order Comment: Name Collecti on Type:: Voided TYPE CODE TESTS RESULT OUT OF RANGE REFERENCE UNITS LAB UCOL Color,Urine Colorless Yellow LAB UAPP Appearance,Ur ine Cloudy Abnormal Alert Clear LAB USG Specificy [place],Urine 1.009 Normal 1.001-1.030 LAB UPH pH,Urine 6.5 [...] Mucus,Urine Rare Result Comment: PERFORMED BY : [address] [place] [address] PATHOLOGIST [employer] BAKER RADHA DURAN M.D. Performed By: #### MARILEE LAWRENCEU #### [facility] [address] [place], [place] [id number] [place] URINE CULTURE Observed: 07/15/2024 12:49 PM Status: F Source: [facility] 75,000 colonies/ml mixed bacterial skin contaminants 2 Days PERFORMED BY: [address] [place] [address] PATHOLOGIST [employer] BAKER RADHA DURAN M.D. Performed By: #### ANAYELI CHURCHILL CUU #### [facility] [address] [place] [address] [facility] XR HIP LT MIN 2V(W/WO PELVIS)* Observed: 06/28/2024 3:42 PM Status: COMPLETED Source: [facility] [place] [address] [place] [address] XRay Report Signed Patient: Lexi Tatum MR#: [id number] : 1945 Acct:[id number] Age/Sex: 79 / F ADM Date: 06/28/24 Loc: [place] Room: Type: [facility] Attending [...] PROCESS.. Impression dictated by: Earnest Iraheta Jr., D.O.06/28/2024 3:44 PM Dictation Location: [place] [address] Transcribed By: [facility] 06/28/24 1544 Dictated By: Earnest Iraheta Jr, DO 06/28/24 1542 Signed By: <Electronically signed by Earnest Iraheta Jr, DO in OV> 06/28/24 1544 HEMOGRAM CBC WITHOUT DIFF Collected: 06/28/2024 11:56 AM Status: F Source: [facility] TYPE CODE TESTS RESULT OUT OF RANGE [...] 6.3-10.7 fL Result Comment: PERFORMED BY : [place] [address] PATHOLOGIST [employer] BAKER RADHA DURAN M.D. Performed By: #### GENET SERUM , SPE W INTERPRET, KAPPA #### [facility] , #### [id number], [id number], FE and TIBC, RENAL, PTH, MG, URIC, ELIAS, CBCNO #### [facility] [address] [place], [place] [id number] [facility] PARATHYROID HORMONE INTACT Collected: 06/28/2024 11:5 6 AM Status: F Source: [facility] TYPE CODE TESTS RESULT OUT OF RANGE REFERENCE UNITS LAB PTH Parathyroid Hormone Intact 69.9 Normal 12-88 pg/mL Result Comment: PERFORMED BY : [place] [address] PATHOLOGIST [employer] BAKER RADHA DURAN M.D. Performed By: #### GENET SERUM , SPE W INTERPRET, KAPPA #### [facility] , #### [id number], [id number], FE and TIBC, RENAL, PTH, MG, URIC, ELIAS, CBCNO #### [facility] [address] [place] [address] RENAL FUNCTION PANEL Collected: 11:56 AM Status: F Source: [facility] TYPE CODE TESTS RESULT OUT OF RANGE [...] W INTERPRET, KAPPA #### [facility] , #### [id number], [id number], FE and TIBC, RENAL, PTH, MG, URIC, ELIAS, CBCNO #### [facility] [address] MAGNESIUM Collected: 4 11:56 AM Status: F Source: [facility] TYPE CODE TESTS RESULT OUT OF RANGE REFERENCE UNITS LAB MG Magnesium 1.9 Normal 1.9-2.7 mg/dL Performed By: #### GENET SERUM , SPE W INTERPRET, KAPPA #### [facility] , #### [id number], [id number], FE and TIBC, RENAL, PTH, MG, URIC, ELIAS, CBCNO #### [facility] [address] URIC ACID Collected: 4 11:56 AM Status: F Source: [facility] TYPE CODE TESTS RESULT OUT OF RANGE REFERENCE UNITS LAB URIC Uric Acid 4.3 Normal 2.3-6.6 mg/dL Performed By: #### GENET SERUM , SPE W INTERPRET, KAPPA #### [facility] , #### [id number], [id number], FE and TIBC, RENAL, PTH, MG, URIC, ELIAS, CBCNO #### [address] IRON AND TIBC PROFILE Collected: 06/28/2024 11:56 AM Status: F Source: [facility] TYPE CODE TESTS RESULT OUT OF RANGE REFERENCE UNITS LAB FE Iron 66 Normal 50-212 ug/dL LAB TIBCT Total Iron Binding Capacity 270 Normal 255-450 ug/dL LAB FESAT% % Iron Saturation 24.4 Normal 20-50 % LAB TRANS Transferrin 193 Low 203-362 mg/dL Performed By: #### GENET SERUM , SPE W INTERPRET, KAPPA #### [facility] , #### [id number], [id number], FE and TIBC, RENAL, PTH, MG, URIC, ELIAS, CBCNO #### [place] [id number] [facility] FERRITIN Collected: 11:56 AM Status: F Source: [facility] TYPE CODE TESTS RESULT OUT OF RANGE REFERENCE UNITS LAB ELIAS Ferritin 96.0 Normal 11.0-306.8 ng/mL Performed By: #### GENET SERUM , SPE W INTERPRET, KAPPA #### [facility] , #### [id number], [id number], FE and TIBC, RENAL, PTH, MG, URIC, ELIAS, CBCNO #### [address] VIT. B12/FOLATE PROFILE Collected: 06/13 11:56 AM Status: F Source: [facility] TYPE CODE TESTS RESULT OUT OF RANGE [...] W INTERPRET, KAPPA #### [facility] , #### [id number], [id number], FE and TIBC, RENAL, PTH, MG, URIC, ELIAS, CBCNO #### [facility] [address] [place] [id number] [facility] VITAMIN D 25 HYDROXY TOTAL Collected: 1 08/29/2023 11:56 AM Status: F Source: [facility] TYPE CODE TESTS RESULT OUT OF RANGE REFERENCE UNITS LAB TUDC11BL Vitamin D 25 Hydroxy Total 59.6 Normal 30-100 ng/mL Result Comment: VITAMIN D ST ATUS 25(OH)VITAMIN D RANGE (ng/mL) Deficient <20 Insufficient 20 to <30 Sufficient 30 to 100 Reference: Laney MF,Abhijeet NC, Stacey CHATMAN, et al. Evaluation,treatment, and prevention of vitamin D deficiency; an Endocrine Society clinical practice guideline. JCEM. 2010; 96(7):1911-30. PERFORMED BY: [place] [address] PATHOLOGIST SECOND COOK AND BAKER RADHA DURAN M.D. Performed By: #### GENET SERUM , SPE W INTERPRET, KAPPA #### [facility] , #### [id number], [id number], FE and TIBC, RENAL, PTH, MG, URIC, ELIAS, CBCNO #### [place] [address] [facility] PROT ELECTROPHORESIS W/INTERP Collected : 06/28/2024 11:56 AM Status: F Source: [facility] TYPE CODE TESTS RESULT OUT OF RANGE REFERENCE UNITS LAB SPETP Total Protein, Serum 6.8 6.0-8.5 g/dL LAB SPEALB Albumin, Serum 3.1 2.9-4.4 g/dL LAB SPEA1G Mpncs-6-Tgld ulin 0.3 0.0-0.4 g/dL LAB SPEA2G Vyowp-1-Asrw ulin 1.3 High 0.4-1.0 g/dL LAB SPEBG Beta Globulin 1.1 0.7-1.3 g/dL LAB SPEGG Gamma Globulin 1.1 0.4-1.8 g/dL LAB SPEMS M-Rafiq Not Observed Not Observed LAB SPEGLOB Globulin, Total 3.7 2.2-3.9 g/dL LAB SPEAG A/G Ratio 0.8 0.7-1.7 LAB SPENOTE SPE-Note Comment . Result Comment: Protein elec trophoresis scan will follow via computer, mail, or barrel cap setter delivery. LAB SPEINTERP SPE-Interpre tation Comment . [...] monoclonal protein is not apparent. Performed at: [facility] [address] [id number] [facility] Counselor: Mohan Talbert PhD, Phone: [phone] Performed By: #### GENET SERUM , SPE W INTERPRET, KAPPA #### [facility] , #### [id number], [id number], FE and TIBC, RENAL, PTH, MG, URIC, ELIAS, CBCNO #### [address] IMMUNOFIXATION,SERUM Collected: 024 11:56 AM Status: F Source: [facility] TYPE CODE TESTS RESULT OUT OF RANGE REFERENCE UNITS LAB GENET SERUM. Immunofixation, Serum Comment: . Result Comment: Presence of monoclonal protein is unclear at this time. Suggest repeat in 3 to 6 months if clinically indicated. LAB IGG Immunoglobulin G 5746 325-0697 mg/dL LAB IGA Immunoglobulin A, Serum 394 64-422 mg/dL LAB IGM Immunoglobulin M, Serum 86 26-217 mg/dL Result Comment: Performed at : [facility] [id number] [facility] Counselor: Mohan Talbert PhD, Phone: [phone] Performed By: #### GENET SERUM , SPE W INTERPRET, KAPPA #### [facility] , #### [id number], [id number], FE and TIBC, RENAL, PTH, MG, URIC, ELIAS, CBCNO #### [facility] [address] [place] [address] FREE K+L LT CHAINS, QN, S Collected: 11:56 AM Status: F Source: [facility] TYPE CODE TESTS RESULT OUT OF RANGE REFERENCE UNITS LAB KAPPA LTC Free [place] Light Chains, S 113.1 High 3.3-19.4 mg/L LAB LAMBDA LTC Free Lambda Light Chains, S 52.4 High 5.7-26.3 mg/L LAB KL RATIO. [place]/Lambda Ratio, S 2.16 High 0.26-1.65 Result Comment: Performed at : [facility] [address] [id number] [facility] Counselor: Mohan Talbert PhD, Phone: [phone] PERFORMED BY: [place] [address] PATHOLOGIST [employer] AND BAKER RADHA DURAN M.D. Performed By: #### GENET SERUM , SPE W INTERPRET, KAPPA #### [facility] , #### [id number], [id number], FE and TIBC, RENAL, PTH, MG, URIC, ELIAS, CBCNO #### [facility] [address] [place] [address] A1C WITH ESTIMATED AVERAGE GLU Collected: 06/28/2024 11:55 AM Status: F Source: [facility] TYPE CODE TESTS RESULT OUT OF RANGE REFERENCE UNITS LAB .A1C Hemoglobin A1C 8.2 High 4.3-5.6 % Result Comment: Increased r isk for diabetes: 5.7 - 6.4 diabetes: >6.4 glycemic control for adults with diabetes: <7.0 LAB eAG Estimated Average Glucose 189 mg/dL Result Comment: PERFORMED BY : [place] [address] PATHOLOGIST [employer] AND BAKER RADHA DURAN M.D. Performed By: #### A1C WTH e A #### [facility] [address] [place] [address] DIPSTICK AND MICROSCOPIC Collected: 06/2024 11:25 AM Status: F Source: [facility] Order Comment: Name Collecti on Type:: Clean-Voided Midstream TYPE CODE TESTS RESULT OUT OF RANGE REFERENCE UNITS LAB UCOL Color,Urine Light-[place] Abnormal Alert Yellow LAB UAPP Appearance,Ur ine Turbid Abnormal Alert Clear LAB USG Specificy [place],Urine 1.010 Normal 1.001-1.030 LAB UPH pH,Urine 6.5 [...] High Negative Result Comment: PERFORMED BY : [place] [address] PATHOLOGIST [employer] AND BAKER RADHA DURAN M.D. LAB URBC RBC,Urine 20 High 0-4 [HPF] LAB UWBC WBC,Urine Innumerable High 0-4 LAB UCLUMPWBC WBC CLUMP, Urine Many High None Seen LAB USQEPI Squamous Epithelial Cell,Urine 20 High 0-2 [HPF] LAB UBACT Bacteria,Urin e 4+ High None Seen LAB UHYALC Hyaline Casts,Urine None 0-8 LAB MUCUS Mucus,Urine Rare Result Comment: PERFORMED BY : [place] [address] PATHOLOGIST [employer] AND BAKER RADHA DURAN M.D. Performed By: #### ANAYELI CHURCHILL CUU #### [place] [address] [facility] URINE CULTURE Observed: 06/24/2024 11:25 AM Status: F Source: [facility] >100,000 colonies/ml mixed bacterial skin contaminants 2 Days PERFORMED BY: [place] [address] PATHOLOGIST [employer] AND BAKER RADHA DURAN M.D. Performed By: #### ANAYELI CHURCHILL, CUU #### [address] COMPLETE BLOOD COUNT AUTO DIFF Collected: 06/24/2024 10:35 AM Status: F Source: [facility] TYPE CODE TESTS RESULT OUT OF RANGE [...] 0.0-0.2 10*3/uL Result Comment: PERFORMED BY : [facility] Aliya [place] [address] PATHOLOGIST [employer] AND BAKER RADHA DURAN M.D. Performed By: #### CBC, ALB, BMP #### [facility] [address] [place] [address] [place] #### FRUC #### [facility] , BASIC METABOLIC PANEL Collected: 2023 10:35 AM Status: F Source: [facility] TYPE CODE TESTS RESULT OUT OF RANGE [...] Performed By: #### CBC, ALB, BMP #### [place] [address] [place] #### FRUC #### [facility] , ALBUMIN LEVEL Collected: 10:35 AM Status: F Source: [facility] TYPE CODE TESTS RESULT OUT OF RANGE REFERENCE UNITS LAB ALB Albumin Level 3.7 Normal 3.5-5.7 g/dL Result Comment: PERFORMED BY : [place] [address] PATHOLOGIST [employer] AND BAKER RADHA DURAN M.D. Performed By: #### CBC, ALB, BMP #### [place] [address] [place] #### FRUC #### [facility] , FRUCTOSAMINE Collected: 10:35 AM Status: F Source: [facility] TYPE CODE TESTS RESULT OUT OF RANGE REFERENCE UNITS LAB FRUC Fructosamine 308 High 0-285 umol/L Result Comment: Published re ference interval for apparently healthy subjects between age 20 and 60 is 205 - 285 umol/L and in a poorly controlled diabetic population is 228 - 563 umol/L with a mean of 396 umol/L. Performed at: - [facility] [address] [id number] [facility] Counselor: Mohan Talbert PhD, Phone: [phone] PERFORMED BY: [place] [address] PATHOLOGIST SEC[employer] AND BAKER RADHA DURAN M.D. Performed By: #### CBC, ALB, BMP #### [place] [address] [place] #### FRUC #### [facility] , PST TYPE AND SCREEN Collected: 06/24/2024 10:35 AM S tatus: F Source: [facility] Order Comment: Date of Surge ry: [id number] TYPE CODE TESTS RESULT OUT OF RANGE REFERENCE UNITS LAB BTV Blood Type A Positive Result Comment: PERFORMED BY : [place] [address] PATHOLOGIST [employer] AND BAKER RADHA DURAN M.D. LAB ABS Antibody Screen NEGATIVE Result Comment: PERFORMED BY : [place] [address] PATHOLOGIST [employer] AND BAKER RADHA DURAN M.D. XR KUB Observed: 2024 9:55 AM Status: COMPLETED Source: [facility] [place] [address] XRay Report Signed Patient: Lexi Tatum MR#: [id number] : 1945 Acct:[id number] Age/Sex: 79 / F ADM Date: 06/04/24 Loc: [place] Room: Type: [facility] Attending Dr: Yaniv Natarajan MD Copies to: [...] Zayra Juarez M.D.06/04/2024 9:56 AM Dictation Location: [place] [address] Transcribed By: [facility] 06/04/24955 Dictated By: Zayra Juarez MD 2455 Signed By: <Electronically signed by MD Zayra Juarez in OV> 06/04/24955 GLUCOSE POCT GLUCOMETERS Collected: 2024 9:43 A M Status: F Source: [facility] TYPE CODE TESTS RESULT OUT OF RANGE REFERENCE UNITS LAB GLUPOC Glucose Poc Glucometers 247 mg/dL Result Comment: Random Gluco se Reference Range is dependent on time and content of last meal. Glucose of more than 200 mg/dL in a nonstressed, ambulatory subject supports the diagnosis of Diabetes Mellitus. PERFORMED BY: [facility] [address] [place] [address] PATHOLOGIST SEC[employer] AND BAKER RADHA DURAN M.D. Performed By: #### GLULS ### # Point of Care testing , GLUCOSE POCT GLUCOMETERS Collected: 2024 7:44 A M Status: F Source: [facility] TYPE CODE TESTS RESULT OUT OF RANGE REFERENCE UNITS LAB GLUPOC Glucose Poc Glucometers 174 mg/dL Result Comment: Random Gluco se Reference Range is dependent on time and content of last meal. Glucose of more than 200 mg/dL in a nonstressed, ambulatory subject supports the diagnosis of Diabetes Mellitus. LAB COMM1 Commemt1 Glu2: Cleaned Meter LAB COMM2 Commemt2 WILL NOTIFY DR/LIANE Result Comment: PERFORMED BY : [facility] [address] [place] [address] PATHOLOGIST [employer] AND BAKER RADHA DURAN M.D. Performed By: #### GLULS ### # Point of Care testing , URINE CULTURE Observed: 05/25/2024 10:30 AM Status: F Source: [facility] No Growth 2 Days PERFORMED BY: [facility] [address] [facility] [place] [address] PATHOLOGIST SEC[employer] AND BAKER RADHA DURAN M.D. Performed By: #### CUU #### [facility] [address] COMPLETE BLOOD COUNT AUTO DIFF Collected: 05/21/2024 1:40 PM Status: F Source: [facility] TYPE CODE TESTS RESULT OUT OF RANGE [...] 0.0-0.2 10*3/uL Result Comment: PERFORMED BY : [address] [place] [address] PATHOLOGIST SEC[employer]OOK AND BAKER CORAL BECKETT M.D. Performed By: #### PT, BMP, PTT, CBC #### [place] [address] [facility] PROTHROMBIN TIME INR Collected: 05/21/2024 1:40 PM S tatus: F Source: [facility] TYPE CODE TESTS RESULT OUT OF RANGE REFERENCE UNITS LAB R PT Prothrombin Time 11.1 Normal 9.0-12.9 s Result Comment: A hematocrit value greater than 55% may lead to inaccurate results in coagulation testing. Patients having hematocrit values >55% require a special collection tube for coagulation studies. Please contact the laboratory at [phone] for redraw instructions. LAB INR INR 1.0 [...] By: #### PT, BMP, PTT, CBC #### [place] [address] [facility] PARTIAL THROMBOPLASTIN TIME Collected: 05/21/2024 1:4 0 PM Status: F Source: [facility] TYPE CODE TESTS RESULT OUT OF RANGE REFERENCE UNITS LAB PTT Partial Thromboplastin Time 29.9 Normal 25.1-36.5 s Result Comment: A hematocrit value greater than 55% may lead to inaccurate results in coagulation testing. Patients having hematocrit values >55% require a special collection tube for coagulation studies. Please contact the laboratory at [phone] for redraw instructions. PERFORMED BY: [place] [address] PATHOLOGIST SEC[employer]OOK AND BAKER CORAL BECKETT M.D. Performed By: #### PT, BMP, PTT, CBC #### [facility] [address] BASIC METABOLIC PANEL Collected: 05/21/2024 1:40 PM Status: F Source: [facility] TYPE CODE TESTS RESULT OUT OF RANGE [...] 8.6-10.3 mg/dL Result Comment: PERFORMED BY : [place] [address] PATHOLOGIST SEC[employer]OOK AND BAKER CORAL BECKETT M.D. Performed By: #### PT, BMP, PTT, CBC #### [facility] [address] [place] [id number] [facility] ALLERGIES DATE TYPE / CODE NAME / CODE REACTION SEVERITY SOURCE 04/06/2025 Drug Allergy/41 5075734(SN OMED CT) adhesive tape/A030903303(RXNO RM) Rash Unknown [facility] 04/06/2025 Drug Allergy/41 7510129(SN OMED CT) blue dye/B228430016(RXNOR M) Nausea Moderate (Severity Modifier) (Qualifier Value) [facility] 04/06/2025 Drug Allergy/41 6140842(SN OMED CT) semaglutide/Q1229611 24(RXNORM) nausea, vomiting Moderate (Severity Modifier) (Qualifier Value) [facility] 07/08/2023 DRUG INGREDI/41 3616921(SN OMED CT) ATORVASTATIN Myalgia [facility] Ambulatory 07/08/2023 Drug Class/4195 01512(SNOM ED CT) WILLIAMS INHIBITORS Other [facility] Ambulatory 07/08/2023 DRUG INGREDI/41 6113119(SN OMED CT) SPIRONOLACTONE Other [facility] Ambulatory 07/08/2023 Drug Class/4195 04614(SNOM ED CT) XBNKNRG-IJX-VAE REDUCTASE INHIBITORS Myalgia [facility] Ambulatory DR/0359363 06(SNOMED CT) pravastatin Unknown [facility] DR/1090510 06(SNOMED CT) atorvastatin myalgia [facility] ENCOUNTERS ADMIT/DISCHARGE ACCOUNT NUMBER ADMITTING ENCOUNTER CLASS LOCATION SOURCE 04/11/2025 [id number] [facility] 04/11/2025 [id number] Ambulatory CD:[id number] 7Building:CD :[id number] [facility] 04/11/2025 [id number] Ambulatory CD:[id number] 7Building:CD :[id number] [facility] 04/07/2025/04/09/20 [id number] Juice Mackenzie [facility] [id number]: 1 [facility] 03/22/2025/04/04/20 [id number] Farhat Almeida [facility]: [id number]: 1 [facility] 03/21/2025/03/22/20 [id number] Da Lozano II [facility]SCR[facility]: [id number] [facility] 03/09/2025 [id number] [facility]PTBONECRK [facility] 03/09/2025/03/09/20 [id number] [facility]SOXD [facility] 03/03/2025/03/03/20 [id number] [facility] 11/15/2024/11/16/19 [id number] Stefan [facility] 10/22/2024/10/23/19 [id number] Yaniv [facility]ajan [facility] 10/22/2024/10/23/19 [id number] Ambulatory CD:[id number] 7Building:CD :[id number] [facility] 09/26/2024/09/27/19 25 [id number] Isiah Mata [facility] 08/11/2024/08/11/19 [id number] Ambulatory Building:[address] 07/15/2024/07/15/19 [id number] Stefan Best [facility] 07/12/2024/07/12/20 24 [id number] [facility] 06/28/2024/06/28/20 24 [id number] Blake II [facility] 06/24/2024/06/24/20 24 [id number] Blake GUILLERMO [facility] 06/04/2024/06/04/20 24 [id number] Yaniv [facility]atarajan [facility] 06/04/2024/06/04/20 24 [id number] Ambulatory CD:[id number] 7Building:CD :[id number] [facility] 05/25/2024/05/25/20 24 [id number] Stefan Best [facility] 05/21/2024/11/08 [id number] Yaniv Natarajan [facility] 05/14/2024 [id number] Ambulatory CD:[id number] 7Building:CD :[id number] [facility] PAYERS ENCOUNTER GUARANTOR PAYER SUBSCRIBER SOURCE 04/11/2025 Lexi Fitzgeraldur[address] [place] [address]Pib: (HP) Primary Insurance:Self PayPolicy Number: Effective Date:2025-04-11 NOT GIVENUNK [facility] 04/11/2025 LEXI L RITENOURDOB: [id number] [address] STTel: ~ ~(4 1 (HP) Primary Insurance:MEDICAREPo licy Number: [id number] Date:9871-78-39[address] [address]OTGT[place], [place] [address]UW: LEXI LORENZO [facility] 04/11/2025 Secondary Insurance:AARPPolicy Number: [id number] Date:0541-92-30[address]JGSVTLS, [place] [address]KN: L[facility]I FITZGERALDC[facility] 04/11/2025 LEXI L RITENOURDOB: [id number] LL[address] STTel: ~ ~(4 1 (HP) Primary Insurance:MEDICAREPo licy Number: [id number] Date:4179-55-04[address] [address]RUWAFGOTDTAMPA, [place] [address]YE: [facility] 04/[facility]/2025 Secondary Insurance:AARPPolicy Number: [id number] Date:6128-42-08[address], [place] [address]SZ: [facility]UMFort [facility] 04/07/2025 Lexi Baez [address] [place] [address]Ssb: () Primary Insurance:MedicarePo licy Number: [id number] Date:2025-04-07 Lexi FitzgeraldurDOB: [id number] [address] OakleyTRACI [place] [id number]: () [facility] 04/07/2025 Secondary Insurance:[facility] Health ClaimsPolicy Number: [id number] Date:2025-04-07 Lexi FitzgeraldurDOB: [id number] [place] [address]Djr: () [facility] 04/07/2025 Tertiary Insurance:Self PayPolicy Number: Effective Date:2025-04-07 [facility] 03/22/2025 Lexi [address] [place] [phone]: () Primary Insurance:Medicare Rehab-IP Part APolicy Number: [id number] Date:2025-03-22 Lexi FitzgeraldurDOB: [id number] [place] [phone]: () [facility] 03/22/2025 Secondary Insurance:MedicarePo licy Number: [id number] Date:2025-03-22 Lexi SingerenourDOB: [id number] [place] [phone]: () [facility] 03/22/2025 Tertiary Insurance:[facility] Health ClaimsPolicy Number: [id number] Date:2025-03-22 Lexi Baez RitenourDOB: [id number] [place] [address]Blx: () [facility] 03/22/2025 Tertiary Insurance:Self PayPolicy Number: Effective Date:2025-03-22 NOT [facility]ENC[facility] 03/21/2025 Lexi [address]eren[address] [place] [phone]: () Primary Insurance:MedicarePo licy Number: [id number] Date:2025-02-03 Lexi L RitenourDOB: [id number] [place] [phone]: () [facility] 03/21/2025 Secondary Insurance:[facility] Health ClaimsPolicy Number: [id number] Date:2025-02-03 Lexi L RitenourDOB: [id number] [place] [phone]: () [facility] 03/21/2025 Tertiary Insurance:Self PayPolicy Number: Effective Date:2025-03-11 NOT [facility]ENC[facility] 03/09/2025 Lexi Baez [id number] [place] [phone]: () Primary Insurance:MedicarePo licy Number: [id number] Date:2025-02-03 Lexi L RitenourDOB: [id number] [place] [phone]: () [facility] 03/09/2025 Secondary Insurance:[facility] Health ClaimsPolicy Number: [id number] Date:2025-02-03 Lexi L RitenourDOB: [id number] [place] [phone]: () [facility] 03/09/2025 Tertiary Insurance:Self PayPolicy Number: Effective Date:2025-02-03 [facility] 03/09/2025 Lexi Baez Y[address] [place] [address]Jxg: () Primary Insurance:MedicarePo licy Number: [id number] Date:2025-03-09 Lexi L RitenourDOB: [id number] Nah[address] [place]Kindred [place] [address]Qcs: () [facility] 03/09/2025 Secondary Insurance:[facility] Health ClaimsPolicy Number: [id number] Date:2025-03-09 Lexi L RitenourDOB: [id number] [place] [phone]: () [facility] 03/09/2025 Tertiary Insurance:Self PayPolicy Number: Effective Date:2025-03-09 NOT GIVENUNK [facility] 03/03/2025 Lexi L [id number] [place] [phone]: () Primary Insurance:MedicarePo licy Number: [id number] Date:2025-02-03 Lexi L RitenourDOB: [id number] [place] [address]Sws: () [facility] 03/03/2025 Secondary Insurance:[facility] Health ClaimsPolicy Number: [id number] Date:2025-02-03 Lexi L RitenourDOB: [id number] [place] [phone]: () [facility] 03/03/2025 Tertiary Insurance:Self PayPolicy Number: Effective Date:2025-02-03 NOT GIVENUNK [facility] 11/15/2024 Lexi L [id number] [place] [phone]: () Primary Insurance:MedicarePo licy Number: [id number] Date:2024-11-15 Lexi SingerenourDOB: [id number] [place] [address]Bqf: () [facility] 11/15/2024 Secondary Insurance:[facility] Health ClaimsPolicy Number: [id number] Date:2024-11-15 Lxei SingerenourDOB: [id number] [place] [phone]: () [facility] 11/15/2024 Tertiary Insurance:Self PayPolicy Number: Effective Date:2024-11-15 NOT [facility]ENC[facility] 10/22/[address] [place], [place] [address]Tel: () Primary Insurance:MedicarePo licy Number: [id number] Date:2024-10-07 Lexi SingerenourDOB: [id number] [place] [phone]: () [facility] 10/22/2024 Secondary Insurance:[facility] ClaimsPolicy Number: [id number] Date:2024-10-07 Lexi SingerenourDOB: [id number] [place] [phone]: () [facility] 10/22/2024 Tertiary Insurance:Self PayPolicy Number: Effective Date:2024-10-07 NOT [facility]ENC[facility] 10/22/2024 LEXI Baez RITENOURDOB: [facility]el: ~ ~(4 1 () Primary Insurance:MEDICAREPo licy Number: [id number] Date:8102-99-19[address] [address]HSOSHCXDR, [place] [address]QC: LEXI LORENZO [facility] 10/22/2024 Secondary Insurance:AARPPolicy Number: [id number] Date:1895-64-43[address]GRS, [place] [address]JQ: LEXI LORENZO [facility] 09/26/2024 Lexi [address]ur[address] [place] [phone]: () Primary Insurance:Self PayPolicy Number: Effective Date:2024-09-26 NOT [facility]ENC[facility] 08/11/2024 LEXI RITENOURDOB: [place] [phone]: () Primary Insurance:AARPPolicy Number: [id number] Date:2022-07-14 LEXI RITENOURDOB: [id number] [place] [phone]: () [facility] 08/11/2024 Secondary Insurance:MEDICAREPo licy Number: [id number] Date:2010-05-14 LEXI SINGERENOURDOB: [id number] [place] [address]Tpy: () [facility] 07/15/2024 Lexi Baez [id number] [place] [phone]: () Primary Insurance:MedicarePo licy Number: [id number] Date:2024-07-15 Lexi Baez RitenourDOB: [id number] [place] [address]Mue: () [facility] 07/15/2024 Secondary Insurance:[facility] Health ClaimsPolicy Number: [id number] Date:2024-07-15 Lexi Baez RitenourDOB: [id number] [place] [id number]: () [facility] 07/15/2024 Tertiary Insurance:Self PayPolicy Number: Effective Date:2024-07-15 [facility] Lexi Baez [id number] [place] [phone]: () Primary Insurance:Self PayPolicy Number: Effective Date:2024-04-22 [facility]24 Lexi [address] [phone]: () Primary Insurance:MedicarePo licy Number: [id number] Date:2024-06-28 Lexi Baez RitenourDOB: [id number] [place] [phone]: () [facility] 06/28/2024 Secondary Insurance:[facility] ClaimsPolicy Number: [id number] Date:2024-06-28 Lexi Baez RitenourDOB: [id number] [place] [phone]: () [facility] 06/28/2024 Tertiary Insurance:Self PayPolicy Number: Effective Date:2024-06-28 [facility] Lexi Baez [id number] [place] [phone]: () Primary Insurance:MedicarePo licy Number: [id number] Date:2024-04-22 Lexi Baez RitenourDOB: [id number] [place] [phone]: () [facility] 06/24/2024 Secondary Insurance:[facility] Health ClaimsPolicy Number: [id number] Date:2024-04-22 Lexi FitzgeraldurDOB: [id number] [place] [address]Fks: () [facility] 06/24/2024 Tertiary Insurance:Self PayPolicy Number: Effective Date:2024-04-22 [facility] 20[facility] Lexi Fitzgeraldur211 [place] [phone]: () Primary Insurance:MedicarePo licy Number: [id number] Date:2024-02-11 Lexi FitzgeraldurDOB: [id number] [place] [phone]: () [facility] 2024 Secondary Insurance:[facility] Health ClaimsPolicy Number: [id number] Date:2024-02-11 Lexi FitzgeraldurDOB: [id number] [place] [phone]: () [facility] 2024 Tertiary Insurance:Self PayPolicy Number: Effective Date:2024-05-28 [facility] LEXI FITZGERALDURDOB: [facility]: ~ ~(4 1 () Primary Insurance:MEDICAREPo licy Number: [id number] Date:[id number] [address] [address], [place] [address]NL: LEXI LORENZO [facility] 2024 Secondary Insurance:AARPPolicy Number: [id number] Date:0600-01-[address], [place] [address]GS: LEXI LORENZO [facility] 05/25/2024 Lexi SingerenourGarry OakleyTRACI [place] [phone]: () Primary Insurance:MedicarePo licy Number: [id number] Date:2024-05-25 Lexi Baez RitenourDOB: [id number] Nahum OakleyTRACI [place] [phone]: () [facility] 05/25/2024 Secondary Insurance:[facility] Health ClaimsPolicy Number: [id number] Date:2024-05-25 Lexi SingerenourDOB: [id number] N[place] OakleyTRAC[place] [phone]: () [facility] 05/25/2024 Tertiary Insurance:Self PayPolicy Number: Effective Date:2024-05-25 [facility]/2024 Lexi SingerenourGarry EnnismichellTRACI VILLE [phone]: () Primary Insurance:MedicarePo licy Number: [id number] Date:2024-02-11 Lexi Baez RitenourDOB: [id number] Nahum DoeKindred Hospital DaytonmichellTRACI VILLE [phone]: () [facility] 05/21/2024 Secondary Insurance:[facility] Health ClaimsPolicy Number: [id number] Date:2024-02-11 Lexi Baez RitenourDOB: [id number] N[place] OakleyTR[place] [phone]: () [facility] 05/21/2024 Tertiary Insurance:Self PayPolicy Number: Effective Date:2024-03-30 [facility]
[2025-04-11 10:38] LABS: Glucose Urine UA COLOR INTERFERENCE mg/dL (NEGATIVE)
[2025-04-11 10:57] LABS: Cast Seen? NONE SEEN #/LPF (NONE SEEN); Crystals Seen? None Seen #/HPF (None Seen); Urine Culture Indicated ALREADY ORDERED
--- NOTE | 2025-04-11 14:14 | CT_ITS ---
The [address] [address] Patient Name: ESTHER TATUM MRN: [id number] date: 1945 Sex: F Assigned Patient Location: Current Patient Location: Accession/Order Number: [id number] Exam Date: 04/11/2025 15:04 Report Date: 04/11/2025 17:35 At the request of: TATE HUGGINS MD Procedure: CT abdomen pelvis wo con CT Abdomen and Pelvis withoutcontrast TECHNIQUE: Axial imaging with 2-D reconstruction. The CT exam was performed using one or more the following dose reduction techniques: Automated exposure control, adjustment of the MA and/or Kv according to patient size, or use of the iterative reconstruction technique. COMPARISON: None History: Acute kidney injury. UTI. Assessment for obstructive uropathy and pyelonephritis LIMITATIONS: None LOWER THORAX tiny layering effusions. Mild atelectasis. Fluid-filled esophagus. May represent reflux. Extensive coronary artery calcification. Sternotomy. LIVER: 3.6 cm heterogeneous hypodense hepatic dome lesion. Intrahepatic atherosclerosis. GALLBLADDER: There are layering gallstones. Mild gallbladder distention. No adjacent inflammation. BILE DUCTS: No dilatation SPLEEN: Unremarkable PANCREAS: Unremarkable ADRENAL GLANDS: Unremarkable There is stranding adjacent to the kidneys. KIDNEYS:Bilateral ureteral stents in place. Large amount of gas in the intrarenal collecting systems and proximal ureters. AORTA: The aortobiiliac grafting. Sensitive atherosclerosis. Right iliac vascular stent. RETROPERITONEUM: No significant retroperitoneal abnormalities identified. MESENTERY:Unremarkable STOMACH:Unremarkable SMALL BOWEL: The small bowel loops are nondistended. APPENDIX: The appendix is normal. COLON: Unremarkable URINARY BLADDER: Large amount of gas seen in the nondistended urinary bladder. Adjacent inflammation identified. The wall is thickened. REPRODUCTIVE SYSTEM: Calcified fibroids. No adnexal mass. PNEUMOPERITONEUM: None PERITONEAL FLUID:None BONY STRUCTURES: Degenerative change ABDOMINAL WALL: Anasarca. 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 ureteral stents in place. dilated intrarenal collecting systems and proximal ureters. No obvious gas within the renal tissues. Gas within nondistended urinary bladder. Urinary bladder wall thickening. 3.6 cm heterogeneous hypodense hepatic dome lesion. Consider follow-up assessment with contrasted CT or MRI of the liver to further characterize. Impression dictated by: Gary Sparrow M.D. 04/11/2025 5:35 PM Dictation Location: [place] [address] Electronically authenticated by: [id number] Y Date: 04/11/2025 17:35
[2025-04-11] MEDS: HEPARIN SODIUM (PORCINE) 5,000 UNIT/ML VIAL 5000 UNIT SUBQ ×2 (15:27→22:15)
[2025-04-11] MEDS: PIPERACILLIN SODIUM/TAZOBACTAM 3.375 GM in 0.9 % SODIUM CHLORIDE 50 ML IV (15:27)
--- NOTE | 2025-04-11 19:08 | PM.EN ---
Event Note Event Note: I reviewed CT report and finding. I discussed her case with Dr Natarajan. He was planing to exchange her stent this AM at [facility] but pt ended up at [facility] He is planning to remove or / and exchange stents tomorrow. Will make pt NPO. She is getting Zosyn. I will give one dose of Genta.
[2025-04-11] MEDS: CIPROFLOXACIN IN 5 % DEXTROSE 400 MG/200 ML PREMIX 200 MG IV (19:36)
[2025-04-11 19:40] LABS: Lactate/Lactic Acid 1.4 mmol/L (0.4-2.0)
[2025-04-11] MEDS: INSULIN ASPART 300 UNIT/3 ML PEN SUBQ (21:36)
[2025-04-11] MEDS: ALBUMIN HUMAN 25 GM/100 ML PREMIX IV (22:15)
[2025-04-11] MEDS: MIDODRINE HCL 5 MG TABLET 10 MG PO (22:15)
[2025-04-12] VITALS (51 sets, daily range): BP systolic 94–151; BP diastolic 0–77; PULSE 0–76; TEMP 36.3–37.2; O2SAT 86–100
[2025-04-12] MEDS: PIPERACILLIN SODIUM/TAZOBACTAM 3.375 GM in 0.9 % SODIUM CHLORIDE 50 ML IV ×2 (03:10→15:01)
[2025-04-12 06:03] LABS: Hematocrit 27.0 % (36.0-48.0); Hemoglobin 8.0 g/dL (12.0-16.0); Mean Corpuscular HGB Conc 29.6 g/dL (29.9-35.2); Mean Corpuscular Hemoglobin 31.7 pg (26.7-34.0); Mean Corpuscular Volume 107.1 fL (81.0-99.0); Platelet Count 169 10^3/uL (150-450); Red Blood Count 2.52 10^6/uL (4.20-5.40); White Blood Count 7.2 10^3/uL (4.0-11.0)
[2025-04-12 06:17] LABS: Alanine Aminotransferase 13 U/L (14-59); Albumin Globulin Ratio 0.6; Albumin Level 2.2 g/dL (3.4-5.0); Alkaline Phosphatase 56 U/L (46-116); Anion Gap 13.6; Aspartate Amino Transferase 14 U/L (15-37); Blood Urea Nitrogen 53.0 mg/dL (7.0-18.0); Calcium 8.3 mg/dL (8.5-10.1); Carbon Dioxide 29.6 mmol/L (21.0-32.0); Chloride 99 mmol/L (98-107); Estimated GFR (African America 17 (>=60 mL/min/1.73m^2); Estimated GFR (Non-African Ame 14 (>=60 mL/min/1.73m^2); Globulin 3.9 g/dL; Glucose 214 mg/dL (74-106); Potassium 5.2 mmol/L (3.5-5.1); Sodium 137 mmol/L (136-145); Total Protein 6.1 g/dL (6.4-8.2)
[2025-04-12] MEDS: HEPARIN SODIUM (PORCINE) 5,000 UNIT/ML VIAL 5000 UNIT SUBQ ×3 (06:51→22:42)
[2025-04-12] MEDS: INSULIN ASPART 300 UNIT/3 ML PEN SUBQ ×2 (08:34→22:42)
[2025-04-12] MEDS: ASPIRIN 81 MG TABLET.DR PO (08:38)
[2025-04-12] MEDS: ALLOPURINOL 300 MG TABLET PO (08:38)
[2025-04-12] MEDS: MIDODRINE HCL 5 MG TABLET PO ×2 (08:38→16:12)
--- NOTE | 2025-04-12 09:34 | CM.NOTE ---
Rounded with . PT/OT ordered. Urology to see patient today.
[2025-04-12 10:34] LABS: NT Pro B Type Natriuretic Pept 7394.0 pg/mL (<=1800.0)
--- NOTE | 2025-04-12 10:50 | ECG_ITS ---
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 Measurements Intervals [place] Rate: 62 P: -30 DC: 180 QRS: -30 QRSD: 110 T: 168 QT: 440 QTc: 446 Interpretive Statements 1100 Sinus rhythm 3132 Anterior myocardial infarction, probably recent 3634 Inferior myocardial infarction, age undetermined [address] depression 4564 Twave abnormality, possible lateral ischemia 6220 Possible left atrial enlargement 9150 abnormal ECG Compared to ECG 04/11/2025 09:23:51 No significant changes Electronically Signed On 04-12-2025 19:58:38 EDT by HI PEREZ M.D.
--- NOTE | 2025-04-12 11:29 | PM.HP ---
HPI H&P: HPI History of Present Illness Chief complaint: URINARY ISSUES UTI ELEVATED TROPONIN Narrative: Dysuria, urinary frequency, gross hematuria. This has been going on for several weeks according to the patient. She has bilateral ureteral stent. She was scheduled to have stent exchange at the patient dialysis yesterday morning. Unfortunately patient fell down at home and was brought to [place] by EMS. She was found to have acute on chronic kidney failure, evidence of UTI and elevated troponin. I did not except to admit patient to [facility] until cleared by her sealant mixer. Emergency room physician had discussed her case with Dr. Cobb who stated that her troponin rise is likely secondary to high demand secondary to active infection. He did not recommend any cardiovascular investigation at this time. He stated that he saw her last week and is comfortable that patient could be managed at [place]. Patient denies having any chest pain. No shortness of breath. Patient is bed and wheelchair bound. Opioid HPI Opioid Management Most Recent Pain and Opioid Data: Last Pain Scale 3 Today, 09:00 Last Pain Intensity 4 09/01/23, 09:23 Last Pain Assessment 04/11/25, 13:57 Last ORT Total Score 0 04/11/25, 13:27 Last ORT Risk Category Low Risk 04/11/25, 13:27 Review of Systems ROS Status of ROS 10 or more systems reviewed and unremarkable except as noted in history and below [facility] Medical History (Updated 04/12/25 @ 11:49 by Trace Alvarez MD) SUSAN (acute kidney injury) ?N17.9 - Acute kidney failure, unspecified (ICD-10) CHF (congestive heart failure) ?I50.9 - Heart failure, unspecified (ICD-10) Gout ?M10.9 - Gout, unspecified (ICD-10) Peripheral arterial disease ?I73.9 - Peripheral vascular disease, unspecified (ICD-10) Stage 3b chronic kidney disease (CKD) ?N18.32 - Chronic kidney disease, stage 3b (ICD-10) HTN (hypertension) ?I10 - Essential (primary) hypertension (ICD-10) Surgical History S/P hip replacement ?Z96.649 - Presence of unspecified artificial hip joint (ICD-10) History of aortic bifurcation bypass graft ?Z95.828 - Presence of other vascular implants and grafts (ICD-10) S/P triple vessel bypass ?Z95.1 - Presence of aortocoronary bypass graft (ICD-10) History of 3 sections ?Z98.891 - History of uterine scar from previous surgery (ICD-10) Family History Brother Family history of cancer Mother Family history of hypertension Father Family history of myocardial infarction Other Family history of CHF (congestive heart failure) Family history of diabetes mellitus Social History Within the past year, how often did you have a drink containing alcohol: never Score interpretation: A score less than 3 is consistent with normal alcohol consumption. Smoking status: Former smoker Non-prescribed substance use: denies use Previous occupational history: disabled Highest level of school completed/degree received: high school graduate Are you now , , , , never or living with a partner: In a typical week, how many times do you talk on the telephone with family, friends, or neighbors: 3 or more times per week How often do you get together with friends or relatives: 3 or more times per week How often do you attend baptism or hoahaoism services: 4 or more times per year Little interest or pleasure in doing things: not at all Feeling down, depressed, or hopeless: not at all Feel stressed/tense/nervous/anxious/difficulty sleeping: not at all Do you think of yourself as: straight/heterosexual Gender Identity: female Meds Home Medications and Allergies Home Medications ?Medication ?Instructions ?Recorded ?Confirmed ?Type allopurinol 300 mg tablet 300 mg PO DAILY 08/30/23 04/11/25 History aspirin 81 mg tablet,delayed 81 mg PO DAILY 08/30/23 04/11/25 History release carvedilol 25 mg tablet 25 mg PO BID 08/30/23 04/11/25 History cholecalciferol (vitamin D3) 125 125 mcg PO .every other day 08/30/23 04/11/25 History mcg (5,000 unit) tablet clopidogrel 75 mg tablet 75 mg PO DAILY 08/30/23 04/11/25 History furosemide 40 mg tablet 40 mg PO QAM 08/30/23 04/11/25 History rosuvastatin 5 mg tablet 10 mg PO DAILY 08/30/23 04/11/25 History gabapentin 300 mg capsule 300 mg PO BID 08/31/23 04/11/25 History insulin aspart U-100 100 unit/mL 1 sliding scale dose subcut ACHS 08/31/23 04/11/25 History (3 mL) subcutaneous pen (Novolog FlexPen U-100 Insulin aspart) insulin glargine 100 unit/mL (3 50 unit subcut .hs 09/27/24 04/11/25 History mL) subcutaneous pen (Basaglar KwikPen U-100 Insulin) acetaminophen 500 mg tablet 1,000 mg PO Q8H PRN fever or pain 04/11/25 04/11/25 History guaifenesin 600 mg tablet, 600 mg PO Q12H 04/11/25 04/11/25 History extended release 12 hr (Mucus Relief ER) pantoprazole 20 mg tablet,delayed 20 mg PO .qd 04/11/25 04/11/25 History release spironolactone 25 mg tablet 12.5 mg PO .qd 04/11/25 04/11/25 History valsartan 40 mg tablet 40 mg PO .qd 04/11/25 04/11/25 History Allergies Allergy/AdvReac Type Severity Reaction Status Date / Time No Known Drug Allergies Allergy Verified 04/07/25 13:32 Exam Narrative Exam Narrative: Patient is lying in bed. Protos is elevated but 45 degrees. Pale skin buccal mucosa. Chest is clear, heart is regular. Abdomen soft, increased abdominal girth, no tenderness. Lower extremities +2 pitting edema. Deformities involving lower extremities joints. Muscle wasting and atrophy Constitutional Vital Signs, click to edit/add: Last Vital Signs Temp 98.1 F 04/12/25 11:21 Pulse 65 04/12/25 11:21 Resp 18 04/12/25 11:21 BP 115/59 04/12/25 11:21 Pulse Ox 100 04/12/25 11:21 O2 Del Method Nasal Cannula 04/12/25 11:21 O2 Flow Rate 2 04/12/25 11:21 Results Labs Labs: Short CBC 04/12/25 Range/Units 05:45 WBC 7.2 (4.0-11.0) 10^3/uL Hgb 8.0 L (12.0-16.0) g/dL Hct 27.0 L (36.0-48.0) % Plt Count 169 (150-450) 10^3/uL BMP 04/12/25 05:45 Sodium 137 Potassium 5.2 H Chloride 99 Carbon Dioxide 29.6 BUN 53.0 H Creatinine 3.20 H Glucose 214 H Calcium 8.3 L Liver Function 04/12/25 Range/Units 05:45 Total Bilirubin 0.3 (0.2-1.0) mg/dL AST 14 L (15-37) U/L ALT 13 L (14-59) U/L Alkaline Phosphatase 56 (46-116) U/L Albumin 2.2 L (3.4-5.0) g/dL Assessment and Plan Assessment and Plan (1) Demand ischemia: (2) Type 2 diabetes mellitus with diabetic neuropathy, unspecified: (3) Acute UTI: (4) Pyelonephritis: Plan SUSAN. Pyelonephritis, UTI. Gas formation in the ureter and bladder. Chronic bilateral stenting. Plan is to proceed with stent exchange by Dr. Natarajan this afternoon. I started patient on Zosyn. Patient is not a candidate for meropenem due to the degree of her kidney failure. Monitor kidney function. Monitor electrolytes. Monitor bicarbonate Elevated CRP but her lactic acid is normal. White count is normal Blood culture is pending. Urine cultures pending I am hoping that her kidney function will improve post stent exchange and treatment of active infection. Elevated troponin. Patient denies having any active chest pain. ECG showed chronic abnormalities ER physician I discussed her case with her sealant mixer Dr. Cobb who stated that her troponin rise is secondary to high demand. He did not recommend any additional cardiovascular investigation at this time. Patient recently had left hip surgery without any complication. Resume dual antiplatelet therapy post urology procedure. Diabetes Accu-Chek with a sliding scale coverage. Reduce the dose of Lantus to prevent hypoglycemia. Bilateral lower extremities edema. Requested venous study rule out DVT. Functional disability, bed and wheelchair bound. Patient is able to stand up and pivot a few steps. Patient is at baseline associated with lower extremity joint deformities and muscle wasting and atrophy. Anemia. Hemoglobin dropped overnight secondary to aggressive hydration. No evidence of acute blood loss other than gross hematuria. Patient will likely require to have anemia workup to be done in the outpatient setting to be handled by PCP in collaboration with other needed outpatient providers. This may include but not limited to EGD, colonoscopy, referral to see hematology and other needed age-appropriate cancer screening. Liver lesion seen on imaging. This will need to be investigated further. May need to have MRI. Could be investigated further in the outpatient setting by PCP in collaboration with GI or hepatology if needed Chronic, subacute medical conditions not listed above, abnormal labs and imaging. These would need to be addressed. Could be addressed later on or in the outpatient setting by PCP collaboration with other needed outpatient providers when time and condition are appropriate. I discussed her case with her daughter at the bedside Overall patient has less than favorable prognosis given her co morbidities Urinary Catheter Management Urinary Catheter Management Straight: Cath placed during this visit: yes Urethral indwelling: No Insertion date: 04/11/25 Insertion time: 19:55
--- NOTE | 2025-04-12 12:24 | CM.NOTE ---
I left a message at [facility] rehab at [phone] to see if the patient would be able to discharge to the inpatient rehab facility after discharge.
--- NOTE | 2025-04-12 12:25 | SWNOTE1 ---
EDY met with pt to discuss dc needs. Therapy recommendations are SNF. Pt's son and in room as well. Pt was just at [facility] acute rehab for 3 weeks and was discharged home. Pt does not wear home oxygen, but is on 2 liters here. Pt does use a walker at home. SW spoke with them about recommendations of SNF. Pt and family are in agreement. Initially they wanted [facility] or [facility]. SW did let them know that both [facility] and [facility] do have a 5 star rating from Medicare.gov. Pt then asked about returning to [facility] acute rehab? EDY advised we will have to call and see how many acute rehab days she has left. SW did explain that acute rehab is different from going to rehab at SNF. Pt and family voiced understanding. Pt is going to OR today around 1230. Pt's stated SW can update him. Pt and family all in agreement that pt needs some type of rehab at discharge and cannot return home. SW did explain how Medicare covers SNF rehab. They voiced understanding. Case management called [facility] acute rehab and left message. EDY emailed Aysha at [facility] to see if they have private female beds open.
--- NOTE | 2025-04-12 12:55 | SWNOTE1 ---
[facility] does not have any private female rooms available at this time.
--- NOTE | 2025-04-12 13:49 | CM.NOTE ---
[facility] called back and requested the face sheet, H&P, and PT/OT notes to determine if the patient would qualify. This information was faxed to them at fax # [phone].
--- NOTE | 2025-04-12 13:57 | PM.URCN ---
Urology - CN: HPI Date of Consult Consult date: 04/12/25 Requesting Physician: Trace Alvarez MD Primary Care Provider: Olivia Cazares MD Consult Narrative Reason for consult IM: Sepsis, hydronephrosis with indwelling stents Narrative: Thank for consultation on this 79-year-old white female who is well-known to me. She was actually on my surgical schedule at a different hospital for cystoscopy and bilateral stent changes. She became weak, had gross hematuria and was subsequently admitted at the [facility] and was found to have an elevated white blood cell count. She is on aggressive intravenous antibiotics. CT scan had been obtained during the workup which demonstrated air in both collecting systems bilaterally and also the urinary bladder. Indwelling Tovar catheter was subsequently placed. Urologic consultation was requested for further evaluation and management. The entire past medical history, past surgical history, system surgery, family history, social history, medications, and allergies are as noted in the admission history and physical performed by yesterday and is unchanged. cc:: CC: Trace Alvarez MD [facility] Medical History (Updated 04/12/25 @ 14:02 by Yaniv Natarajan MD) CHF (congestive heart failure) ?I50.9 - Heart failure, unspecified (ICD-10) Gout ?M10.9 - Gout, unspecified (ICD-10) Peripheral arterial disease ?I73.9 - Peripheral vascular disease, unspecified (ICD-10) Stage 3b chronic kidney disease (CKD) ?N18.32 - Chronic kidney disease, stage 3b (ICD-10) HTN (hypertension) ?I10 - Essential (primary) hypertension (ICD-10) Surgical History S/P hip replacement ?Z96.649 - Presence of unspecified artificial hip joint (ICD-10) History of aortic bifurcation bypass graft ?Z95.828 - Presence of other vascular implants and grafts (ICD-10) S/P triple vessel bypass ?Z95.1 - Presence of aortocoronary bypass graft (ICD-10) History of 3 sections ?Z98.891 - History of uterine scar from previous surgery (ICD-10) Family History Brother Family history of cancer Mother Family history of hypertension Father Family history of myocardial infarction Other Family history of CHF (congestive heart failure) Family history of diabetes mellitus Social History Within the past year, how often did you have a drink containing alcohol: never Score interpretation: A score less than 3 is consistent with normal alcohol consumption. Smoking status: Former smoker Non-prescribed substance use: denies use Previous occupational history: disabled Highest level of school completed/degree received: high school graduate Are you now , , , , never or living with a partner: In a typical week, how many times do you talk on the telephone with family, friends, or neighbors: 3 or more times per week How often do you get together with friends or relatives: 3 or more times per week How often do you attend tenriism or methodist services: 4 or more times per year Little interest or pleasure in doing things: not at all Feeling down, depressed, or hopeless: not at all Feel stressed/tense/nervous/anxious/difficulty sleeping: not at all Do you think of yourself as: straight/heterosexual Gender Identity: female Meds Home Medications and Allergies Home Medications ?Medication ?Instructions ?Recorded ?Confirmed ?Type allopurinol 300 mg tablet 300 mg PO DAILY 08/30/23 04/11/25 History aspirin 81 mg tablet,delayed 81 mg PO DAILY 08/30/23 04/11/25 History release carvedilol 25 mg tablet 25 mg PO BID 08/30/23 04/11/25 History cholecalciferol (vitamin D3) 125 125 mcg PO .every other day 08/30/23 04/11/25 History mcg (5,000 unit) tablet clopidogrel 75 mg tablet 75 mg PO DAILY 08/30/23 04/11/25 History furosemide 40 mg tablet 40 mg PO QAM 08/30/23 04/11/25 History rosuvastatin 5 mg tablet 10 mg PO DAILY 08/30/23 04/11/25 History gabapentin 300 mg capsule 300 mg PO BID 08/31/23 04/11/25 History insulin aspart U-100 100 unit/mL 1 sliding scale dose subcut ACHS 08/31/23 04/11/25 History (3 mL) subcutaneous pen (Novolog FlexPen U-100 Insulin aspart) insulin glargine 100 unit/mL (3 50 unit subcut .hs 09/27/24 04/11/25 History mL) subcutaneous pen (Basaglar KwikPen U-100 Insulin) acetaminophen 500 mg tablet 1,000 mg PO Q8H PRN fever or pain 04/11/25 04/11/25 History guaifenesin 600 mg tablet, 600 mg PO Q12H 04/11/25 04/11/25 History extended release 12 hr (Mucus Relief ER) pantoprazole 20 mg tablet,delayed 20 mg PO .qd 04/11/25 04/11/25 History release spironolactone 25 mg tablet 12.5 mg PO .qd 04/11/25 04/11/25 History valsartan 40 mg tablet 40 mg PO .qd 04/11/25 04/11/25 History Allergies Allergy/AdvReac Type Severity Reaction Status Date / Time No Known Drug Allergies Allergy Verified 04/07/25 13:32 Exam Narrative Exam Narrative: HEENT is within normal limits She is awake and alert cooperative Heart regular rate and rhythm Abdomen, soft nontender No CVA tenderness bilaterally. Negative peritoneal signs. Normal external female genitalia. At lower extremities within normal limits. No obvious neurologic deficits. Constitutional Vital Signs, click to edit/add: Last Vital Signs Temp 98.1 F 04/12/25 11:21 Pulse 66 04/12/25 11:50 Resp 18 04/12/25 11:21 BP 115/59 04/12/25 11:21 Pulse Ox 100 04/12/25 11:21 O2 Del Method Nasal Cannula 04/12/25 11:21 O2 Flow Rate 2 04/12/25 11:21 Results Labs Labs: Short CBC 04/12/25 Range/Units 05:45 WBC 7.2 (4.0-11.0) 10^3/uL Hgb 8.0 L (12.0-16.0) g/dL Hct 27.0 L (36.0-48.0) % Plt Count 169 (150-450) 10^3/uL BMP 04/12/25 05:45 Sodium 137 Potassium 5.2 H Chloride 99 Carbon Dioxide 29.6 BUN 53.0 H Creatinine 3.20 H Glucose 214 H Calcium 8.3 L Liver Function 04/12/25 Range/Units 05:45 Total Bilirubin 0.3 (0.2-1.0) mg/dL AST 14 L (15-37) U/L ALT 13 L (14-59) U/L Alkaline Phosphatase 56 (46-116) U/L Albumin 2.2 L (3.4-5.0) g/dL Urology Assessment and Plan Assessment and Plan (1) Bilateral hydronephrosis: (2) Pyelonephritis: (3) SUSAN (acute kidney injury): (4) Acute UTI: Plan Reviewed labs, discussed with the patient and her , discussed with anesthesia. The patient does carry an increased anesthesia risk secondary to current ongoing clinical situation and multiple comorbidities. The presence of gas in the urinary collecting system is quite suspicious for emphysematous pyelonephritis with high morbidity mortality rate. She does have the indwelling stents which seem to be going in good position. It is certainly time for change. Despite her multiple medical issues I feel it is warranted to proceed with cystoscopy and bilateral ureteral stent changes under anesthesia. The patient and her are willing to take the risk of anesthesia itself. This does include an increased risk of heart and lung problems and hypotension. They wish me to proceed. Full informed consent is part of the hospital record.
--- NOTE | 2025-04-12 14:04 | PM.URSON ---
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 It was felt indicated to proceed despite multiple comorbidities and her clinical situation to at least change the stents to ensure drainage from both kidneys into the bladder. Indwelling Tovar catheter is present. The patient and her are aware of the increased risk of anesthesia and wish me to proceed. Full informed consent as part of the record. She has already been on intravenous antibiotics. Detailed description of Procedure: The patient was brought back to the operating room and a timeout was performed. All in agreement with the operative plan and she is identified appropriately. After the successful induction of general anesthesia by Dr. Olmos she is placed in a modified dorsolithotomy position and prepped in usual fashion Betadine solution. She draped appropriately and 2% Xylocaine jelly is placed per urethra. A well-lubricated 22 Mongolian cystourethroscope with 30 degree lens then passed into the bladder. Both stents are seen coming into the bladder normally. I turned initially my attention towards the left side. This was after confirming just inflammatory changes in the bladder. No tumors, no stones. I was able to pass a 0.035 guidewire up alongside the left stent but this was not going proximal up into the kidney. Despite multiple manipulation I felt that it was close enough to the left ureteropelvic junction. The existing stent was removed with an alligator forceps and discarded. A new stent was placed up into the left upper quadrant but again it was questionable whether this was in the kidney. Fluoroscopic imaging demonstrates coiling of the stent in that area. I turned my attention towards the right side. I grabbed the end of the stent and brought it to the level of the urethra. A 0.035 guidewire was then passed through the existing stent up into the kidney. The old stent was removed and the wire backloaded through the cystoscope. A new 6 Mongolian 22-32 variable length Dornier stent is passed into the right kidney. Wire removed there is a good curl within the right renal pelvis and the urinary bladder. Again I felt that the left stent may not be in the kidney and so as not to risk simply leaving a stent with incomplete drainage I felt that manipulation was indicated. I again passed a wire up the left side up into the kidney. The existing stent was then grasped and removed to the level of the urethral meatus. Unfortunately it became knotted and I was unable to pull the stent. I did not place any undue pressure so as not to cause a ureteral avulsion. I decided to simply place a smaller stent into the left kidney. This was accomplished over the wire. This is a 4 Mongolian variable length stent. I should note that I did transect the distal aspect of the retained stent and actually pushed to the distal end of that up into the lower ureter. She tolerates it well and a new indwelling Tovar catheter was placed. I discussed all this with the patient's postoperatively including the complication of now are retained and knotted proximal aspect of the a stent even though the systems are drained. She will eventually require cystoscopy, stent removal and then subsequent ureteroscopy and laser ablation of the not. This can be performed within the next couple months or so. We certainly need to get her through the acute situation with pyelonephritis. She does have elevated troponins and need to rule out cardiac event as well. Upon discussing with anesthesia she will also most likely require further cardiac angiography given her previous history of CABG and need for coronary artery stenting. He agreed with the plan. Urinary Catheter Management Urinary Catheter Management Straight: Cath placed during this visit: yes Urethral indwelling: No Insertion date: 04/11/25 Insertion time: 19:55 Urethral: Cath placed during this visit: no
--- NOTE | 2025-04-12 14:32 | CM.NOTE ---
I received a return call from Amanda Reed at [facility] and she states that she should be covered as far as inpatient rehab days are considered because she was only admitted at their facility for 15 days then 3 days so a total of 18 days. She said to continue to send PT/OT updates if we think she would like to discharge to their facility.
--- NOTE | 2025-04-12 14:39 | SWNOTE1 ---
Maxine from [facility] called and spoke with case management and pt only used 18 acute rehab days and has plenty of days left. SW to notify pt's . Maxine stated they would have to review referral and physician would have to determine if they can accept.
[2025-04-13] VITALS (21 sets, daily range): BP systolic 121–154; BP diastolic 59–78; PULSE 63–74; TEMP 36.4–36.8; O2SAT 91–98
[2025-04-13] MEDS: PIPERACILLIN SODIUM/TAZOBACTAM 3.375 GM in 0.9 % SODIUM CHLORIDE 50 ML IV ×2 (03:13→14:01)
[2025-04-13 06:22] LABS: Hematocrit 30.8 % (36.0-48.0); Hemoglobin 9.3 g/dL (12.0-16.0); Mean Corpuscular HGB Conc 30.2 g/dL (29.9-35.2); Mean Corpuscular Hemoglobin 32.1 pg (26.7-34.0); Mean Corpuscular Volume 106.2 fL (81.0-99.0); Platelet Count 212 10^3/uL (150-450); Red Blood Count 2.90 10^6/uL (4.20-5.40); White Blood Count 5.4 10^3/uL (4.0-11.0)
[2025-04-13] MEDS: HEPARIN SODIUM (PORCINE) 5,000 UNIT/ML VIAL 5000 UNIT SUBQ ×3 (06:27→22:32)
[2025-04-13 06:45] LABS: Alanine Aminotransferase 18 U/L (14-59); Albumin Globulin Ratio 0.5; Albumin Level 2.2 g/dL (3.4-5.0); Alkaline Phosphatase 62 U/L (46-116); Anion Gap 11.8; Aspartate Amino Transferase 15 U/L (15-37); Blood Urea Nitrogen 60.0 mg/dL (7.0-18.0); Calcium 8.9 mg/dL (8.5-10.1); Carbon Dioxide 30.1 mmol/L (21.0-32.0); Chloride 99 mmol/L (98-107); Estimated GFR (African America 17 (>=60 mL/min/1.73m^2); Estimated GFR (Non-African Ame 14 (>=60 mL/min/1.73m^2); Globulin 4.3 g/dL; Glucose 230 mg/dL (74-106); Potassium 5.9 mmol/L (3.5-5.1); Sodium 135 mmol/L (136-145); Total Protein 6.5 g/dL (6.4-8.2)
[2025-04-13] MEDS: INSULIN ASPART 300 UNIT/3 ML PEN SUBQ ×4 (08:01→21:50)
[2025-04-13] MEDS: ALLOPURINOL 300 MG TABLET PO (08:20)
[2025-04-13] MEDS: PANTOPRAZOLE SODIUM 40 MG TABLET.DR PO (08:20)
[2025-04-13] MEDS: CARVEDILOL 3.125 MG TABLET PO ×2 (08:20→21:49)
[2025-04-13] MEDS: CLOPIDOGREL BISULFATE 75 MG TABLET PO (08:20)
[2025-04-13] MEDS: MIDODRINE HCL 5 MG TABLET PO (08:20)
[2025-04-13] MEDS: ASPIRIN 81 MG TABLET.DR PO (08:20)
--- NOTE | 2025-04-13 08:25 | CM.NOTE ---
Rounds made with Dr. Alvarez, discussed plan of care with pt. No discharge today, continue treatment as ordered.
--- NOTE | 2025-04-13 09:05 | SWNOTE1 ---
Important Message from Medicare reviewed and discussed with patient. Pt. verbalized understanding and signed the form. Original given to patient and copy placed in patient?s chart. This was completed on 04/12/25. See chart for copy.
--- NOTE | 2025-04-13 09:58 | PM.PN ---
Progress Note: Subjective Subjective Interval history: Patient is feeling better overall. No chest pain or palpitation. No abdominal pain, nausea or vomiting. Exam Narrative Exam Narrative: Patient is lying in bed. Protos is elevated but 45 degrees. Pale skin buccal mucosa. Chest is clear, heart is regular. Abdomen soft, increased abdominal girth, no tenderness. Lower extremities +2 pitting edema. Deformities involving lower extremities joints. Muscle wasting and atrophy Constitutional Vital Signs, click to edit/add: Last Vital Signs Temp 97.5 F L 04/13/25 07:51 Pulse 71 04/13/25 09:55 Resp 20 04/13/25 07:51 BP 134/60 04/13/25 07:51 Pulse Ox 97 04/13/25 07:51 O2 Del Method Room Air 04/13/25 07:51 O2 Flow Rate 1 04/13/25 05:42 Progress Note: Objective Labs Labs: Short CBC 04/13/25 Range/Units 05:41 WBC 5.4 (4.0-11.0) 10^3/uL Hgb 9.3 L (12.0-16.0) g/dL Hct 30.8 L (36.0-48.0) % Plt Count 212 (150-450) 10^3/uL BMP 04/13/25 05:41 Sodium 135 L Potassium 5.9 H Chloride 99 Carbon Dioxide 30.1 BUN 60.0 H Creatinine 3.21 H Glucose 230 H Calcium 8.9 Liver Function 04/13/25 Range/Units 05:41 Total Bilirubin 0.4 (0.2-1.0) mg/dL AST 15 (15-37) U/L ALT 18 (14-59) U/L Alkaline Phosphatase 62 (46-116) U/L Albumin 2.2 L (3.4-5.0) g/dL Progress Note: A&P Assessment and Plan (1) Bilateral hydronephrosis: (2) Pyelonephritis: (3) SUSAN (acute kidney injury): (4) Acute UTI: Plan Septic shock present on admission SUSAN. Pyelonephritis, UTI. Gas formation in the ureter and bladder. Chronic bilateral stenting. Status post bilateral stent exchange completed by Dr. Natarajan on 03/26 Continue Zosyn patient is not a candidate for meropenem due to the degree of her kidney failure. Blood and urine cultures are pending Monitor kidney function. Monitor electrolytes. Monitor bicarbonate Elevated CRP but her lactic acid is normal. White count is normal I am hoping that her kidney function will improve post stent exchange and treatment of active infection. Continue to hold ARB and spironolactone Hyperkalemia 1 dose of Lokelma. 1 dose of D50 and insulin Repeat potassium at 8 PM Elevated troponin. Patient denies having any active chest pain. ECG showed chronic abnormalities ER physician I discussed her case with her family consumer science teacher Dr. Cobb who stated that her troponin rise is secondary to high demand. He did not recommend any additional cardiovascular investigation at this time. Patient recently had left hip surgery without any complication. Resumed dual antiplatelet therapy post urology procedure. Resumed beta-breanna. Lower dose due to borderline hypotension Diabetes Accu-Chek with a sliding scale coverage. Continue Lantus. Bilateral lower extremities edema. Requested venous study rule out DVT. Ultrasound is negative for DVT Functional disability, bed and wheelchair bound. Patient is able to stand up and pivot a few steps. Patient is at baseline associated with lower extremity joint deformities and muscle wasting and atrophy. Anemia. Hemoglobin dropped overnight secondary to aggressive hydration. No evidence of acute blood loss other than gross hematuria. Patient will likely require to have anemia workup to be done in the outpatient setting to be handled by PCP in collaboration with other needed outpatient providers. This may include but not limited to EGD, colonoscopy, referral to see hematology and other needed age-appropriate cancer screening. Liver lesion seen on imaging. This will need to be investigated further. May need to have MRI. Could be investigated further in the outpatient setting by PCP in collaboration with GI or hepatology if needed Chronic, subacute medical conditions not listed above, abnormal labs and imaging. These would need to be addressed. Could be addressed later on or in the outpatient setting by PCP collaboration with other needed outpatient providers when time and condition are appropriate. Urinary Catheter Management Urinary Catheter Management Straight: Cath placed during this visit: yes Urethral indwelling: No Insertion date: 04/11/25 Insertion time: 19:55 Urethral: Cath placed during this visit: yes Urethral indwelling: No Insertion date: 04/11/25 Insertion time: 19:55
--- NOTE | 2025-04-13 10:10 | SWNOTE1 ---
EDY did speak with case management and [facility] acute re[facility] did call case management yesterday and pt is not appropriate for acute rehab at this time, they recommend SNF.
--- NOTE | 2025-04-13 10:22 | SWNOTE1 ---
SW stopped in to speak with pt and family. Pt's daughter, , and other family member in room as well. SW followed up with conversation in regards to rehab. SW did update patient that Bonnie has no covid, [facility] only has semi private, and she does not qualify for inpt acute rehab. Pt and family has decided that they want SW to look in to [facility] and pt is alright with semi-private room. SW to reach out to Mat. Referral sent to [facility]. Referral included face sheet, ED note, H&P, provider notes, case management report, urology consult and operative note, nursing notes, diagnostic imaging, med list, and PT/OT notes.
[2025-04-13] MEDS: INSULIN REGULAR, HUMAN (100 UNIT/ML) 10 ML MDV 8 UNIT IV (10:41)
[2025-04-13] MEDS: DEXTROSE 50 %-WATER 25 GM/50 ML SYRINGE IV (10:41)
[2025-04-13] MEDS: SODIUM ZIRCONIUM CYCLOSILICATE 10 GM POWD.PACK PO (10:41)
[2025-04-13] MEDS: LACTULOSE 10 GM/15 ML UD CUP 30 GM PO (10:41)
--- NOTE | 2025-04-13 11:38 | CM.NOTE ---
CM talked with pt regarding her wishes medically regarding code status. Explained Full code, DNRCC, and DNRCCA. Pt at this time voices wishes of full code.
[2025-04-13] MEDS: MIDODRINE HCL 5 MG TABLET 2.5 MG PO ×2 (12:08→16:23)
[2025-04-13] MEDS: 0.9 % SODIUM CHLORIDE 250 ML 10 ML IV (14:01)
--- NOTE | 2025-04-13 14:35 | CM.NOTE ---
Mannie garzat sent to Dr. Alvarez with final urine culture and susceptibility.
--- NOTE | 2025-04-13 15:50 | SWNOTE1 ---
[facility] has accepted, they just need final cultures.
[2025-04-13 20:04] LABS: Potassium 5.0 mmol/L (3.5-5.1)
[2025-04-13] MEDS: ATORVASTATIN CALCIUM 20 MG TABLET PO (21:49)
[2025-04-13] MEDS: INSULIN GLARGINE 300 UNIT/3 ML INSULN.PEN 15 UNIT SQ (21:50)
[2025-04-14] VITALS (17 sets, daily range): BP systolic 107–146; BP diastolic 47–92; PULSE 60–78; TEMP 36.4–36.8; O2SAT 91–95
[2025-04-14] MEDS: PIPERACILLIN SODIUM/TAZOBACTAM 3.375 GM in 0.9 % SODIUM CHLORIDE 50 ML IV ×2 (02:52→14:26)
[2025-04-14 06:02] LABS: Anion Gap 13.8; Blood Urea Nitrogen 59.0 mg/dL (7.0-18.0); Calcium 8.7 mg/dL (8.5-10.1); Carbon Dioxide 27.4 mmol/L (21.0-32.0); Chloride 101 mmol/L (98-107); Estimated GFR (African America 20 (>=60 mL/min/1.73m^2); Estimated GFR (Non-African Ame 16 (>=60 mL/min/1.73m^2); Glucose 206 mg/dL (74-106); Potassium 5.2 mmol/L (3.5-5.1); Sodium 137 mmol/L (136-145)
[2025-04-14] MEDS: HEPARIN SODIUM (PORCINE) 5,000 UNIT/ML VIAL 5000 UNIT SUBQ ×3 (06:11→22:39)
[2025-04-14] MEDS: INSULIN ASPART 300 UNIT/3 ML PEN SUBQ ×4 (08:36→22:34)
[2025-04-14] MEDS: MIDODRINE HCL 5 MG TABLET 2.5 MG PO ×3 (08:38→17:13)
[2025-04-14] MEDS: ASPIRIN 81 MG TABLET.DR PO (08:39)
[2025-04-14] MEDS: SODIUM ZIRCONIUM CYCLOSILICATE 10 GM POWD.PACK PO (08:39)
[2025-04-14] MEDS: CARVEDILOL 3.125 MG TABLET PO ×2 (08:39→22:30)
[2025-04-14] MEDS: ALLOPURINOL 300 MG TABLET PO (08:39)
[2025-04-14] MEDS: PANTOPRAZOLE SODIUM 40 MG TABLET.DR PO (08:39)
[2025-04-14] MEDS: CLOPIDOGREL BISULFATE 75 MG TABLET PO (08:39)
--- NOTE | 2025-04-14 10:33 | SWNOTE1 ---
SW did update pt that she was accepted at [facility]. SW did confirm that pt is going in to a semi-private room.
[2025-04-14] MEDS: ENSURE ORIGINAL 237 ML BOTTLE PO ×2 (11:00→22:31)
--- NOTE | 2025-04-14 12:48 | P.PN_ITS ---
Progress Note: Subjective Subjective Interval history: Patient is feeling better overall. Significantly better. No chest pain or palpitation. No abdominal pain, nausea or vomiting. Exam Narrative Exam Narrative: Patient is lying in bed. Protos is elevated but 45 degrees. Pale skin buccal mucosa. Chest is clear, heart is regular. Abdomen soft, increased abdominal girth, no tenderness. Lower extremities +2 pitting edema. Deformities involving lower extremities joints. Muscle wasting and atrophy Constitutional Vital Signs, click to edit/add: Last Vital Signs Temp 97.9 F 04/14/25 11:38 Pulse 65 04/14/25 11:44 Resp 20 04/14/25 11:38 BP 107/47 L 04/14/25 11:38 Pulse Ox 93 L 04/14/25 11:38 O2 Del Method Room Air 04/14/25 11:38 O2 Flow Rate 1 04/13/25 05:42 Progress Note: Objective Labs Labs: BMP 04/13/25 04/14/25 19:49 05:28 Sodium 137 Potassium 5.0 5.2 H Chloride 101 Carbon Dioxide 27.4 BUN 59.0 H Creatinine 2.81 H Glucose 206 H Calcium 8.7 Progress Note: A&P Assessment and Plan (1) Bilateral hydronephrosis: (2) Pyelonephritis: (3) SUSAN (acute kidney injury): (4) Acute UTI: Plan Septic shock present on admission, resolved SUSAN. Resolving Pyelonephritis, UTI. On appropriate antibiotic treatment for Klebsiella Gas formation in the ureter and bladder. 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 Status post bilateral stent exchange completed by Dr. Natarajan on 03/26 Continue Zosyn patient is not a candidate for meropenem due to the degree of her kidney failure. Blood cultures negative. Urine cultures positive for Klebsiella that is sensitive to Zosyn. Monitor kidney function. Monitor electrolytes. Monitor bicarbonate Elevated CRP but her lactic acid is normal. White count is normal I am hoping that her kidney function will improve post stent exchange and treatment of active infection. Continue to hold ARB and spironolactone Hyperkalemia 1 dose of Lokelma. 1 dose of D50 and insulin Repeat potassium is 5. Continue to monitor. Continue to keep patient off spironolactone and valsartan. Elevated troponin. Patient denies having any active chest pain. ECG showed chronic abnormalities ER physician I discussed her case with her dry cleaning supervisor Dr. Cobb who stated that her troponin rise is secondary to high demand. He did not recommend any additional cardiovascular investigation at this time. Patient recently had left hip surgery without any complication. Resumed dual antiplatelet therapy post urology procedure. Resumed beta-breanna. Lower dose due to borderline hypotension Troponin is trending back to normal. Diabetes Accu-Chek with a sliding scale coverage. Continue Lantus. Increased dose for better control. Bilateral lower extremities edema. Requested venous study rule out DVT. Ultrasound is negative for DVT Functional disability, bed and wheelchair bound. Patient is able to stand up and pivot a few steps. Patient is at baseline associated with lower extremity joint deformities and muscle wasting and atrophy. Anemia. Hemoglobin dropped overnight secondary to aggressive hydration. No evidence of acute blood loss other than gross hematuria. Patient will likely require to have anemia workup to be done in the outpatient setting to be handled by PCP in collaboration with other needed outpatient providers. This may include but not limited to EGD, colonoscopy, referral to see hematology and other needed age-appropriate cancer screening. Liver lesion seen on imaging. This will need to be investigated further. May need to have MRI. Could be investigated further in the outpatient setting by PCP in collaboration with GI or hepatology if needed Chronic, subacute medical conditions not listed above, abnormal labs and imaging. These would need to be addressed. Could be addressed later on or in the outpatient setting by PCP collaboration with other needed outpatient providers when time and condition are appropriate. Urinary Catheter Management Urinary Catheter Management Straight: Cath placed during this visit: yes Urethral indwelling: No Insertion date: 04/11/25 Insertion time: 19:55 Urethral: Cath placed during this visit: yes Urethral indwelling: No Insertion date: 04/11/25 Insertion time: 19:55
--- NOTE | 2025-04-14 14:10 | SWNOTE1 ---
EDY faxed updates to Bob at [facility]. SW included physician note, PT/OT, vitals, nursing notes, and SW also sent preliminary blood cultures that showed no growth at 36-48 hours.
--- NOTE | 2025-04-14 14:32 | CM.NOTE ---
[address] Alvarez for rounds. Potential discharge to [facility] tomorrow.
[2025-04-14] MEDS: ATORVASTATIN CALCIUM 20 MG TABLET PO (22:31)
[2025-04-14] MEDS: INSULIN GLARGINE 300 UNIT/3 ML INSULN.PEN 20 UNIT SQ (22:36)
[2025-04-15] VITALS (9 sets, daily range): BP systolic 133–155; BP diastolic 47–69; PULSE 61–69; TEMP 36.4–36.8; O2SAT 94–96
[2025-04-15] MEDS: PIPERACILLIN SODIUM/TAZOBACTAM 3.375 GM in 0.9 % SODIUM CHLORIDE 50 ML IV (03:17)
[2025-04-15] MEDS: HEPARIN SODIUM (PORCINE) 5,000 UNIT/ML VIAL 5000 UNIT SUBQ (06:12)
[2025-04-15 06:30] LABS: Anion Gap 10.8; Blood Urea Nitrogen 51.0 mg/dL (7.0-18.0); Calcium 8.6 mg/dL (8.5-10.1); Carbon Dioxide 31.2 mmol/L (21.0-32.0); Chloride 102 mmol/L (98-107); Estimated GFR (African America 20 (>=60 mL/min/1.73m^2); Estimated GFR (Non-African Ame 17 (>=60 mL/min/1.73m^2); Glucose 191 mg/dL (74-106); Potassium 5.0 mmol/L (3.5-5.1); Sodium 139 mmol/L (136-145)
[2025-04-15] MEDS: CLOPIDOGREL BISULFATE 75 MG TABLET PO (08:12)
[2025-04-15] MEDS: ASPIRIN 81 MG TABLET.DR PO (08:12)
[2025-04-15] MEDS: ENSURE ORIGINAL 237 ML BOTTLE PO (08:12)
[2025-04-15] MEDS: PANTOPRAZOLE SODIUM 40 MG TABLET.DR PO (08:12)
[2025-04-15] MEDS: CARVEDILOL 3.125 MG TABLET PO (08:12)
[2025-04-15] MEDS: INSULIN ASPART 300 UNIT/3 ML PEN SUBQ (08:12)
[2025-04-15] MEDS: ALLOPURINOL 300 MG TABLET PO (08:12)
--- NOTE | 2025-04-15 08:15 | CM.NOTE ---
Rounds made with Dr. Alvarez, pt will discharge to [facility] for skilled therapy today. Pt and daughter verbalize understanding. Pt will f/u with urology, appointment scheduled.
--- NOTE | 2025-04-15 09:31 | SWNOTE1 ---
Pt is ready for discharge today. SW stopped in to speak with pt about transport, she requested SW come back in a bit when her arrives.
--- NOTE | 2025-04-15 10:00 | CM.NOTE ---
CRF completed and signed by EDY Gill will call facility and set up transportation.
--- NOTE | 2025-04-15 10:40 | SWNOTE1 ---
SW spoke with pt, pt's , and pt's children in the room. SW did ask if they discussed transport. Pt's voiced that he thinks trips would be fine by a wheelchair. Pt and family in agreement. SW to call trips and get time set up. SW called [facility] and they are unsure if they will be able to transport. They are checkign schedule and will call SW back. EDY reached out to Karen and Aysha at [facility] to see if they have transport. Karen did respond and they have transport available until 1:30 and then between 3:30-5. EDY requested 12:30-1, waiting to hear back.
--- NOTE | 2025-04-15 10:55 | SWNOTE1 ---
EDY received message back from Karen at [facility] and they will be here at 12:30 to transport. EDY notified pt's nurse and pt and her family in room. EDY to send orders once complete.
--- NOTE | 2025-04-15 11:51 | PT.DAILY ---
Physical Therapy Daily Note PT Daily Note/Assess Start: 04/13/25 11:45 Freq: Status: Active Protocol: Document 04/15/25 11:37 [id number] (Rec: 04/15/25 11:51 [id number]) Physical Therapy Daily Note/Assessment Time In/Time Out Time In 10:55 Time Out 11:15 Pain In Pain Level 0 Pain Out Pain Level 0 Subjective Subjective Patient received in bed with HOB fully elevated. Patient agreeable to participate with PT, states she is not sure how far she can go today but will try. present during treatment. Therapeutic Activity Time Therapeutic Activity 20 Minutes (minutes) Therapeutic Activity 1 Units Therapeutic Activity Treatment Bed Mobility Ability Moderate Assist Chair Transfer Contact Guard Assist,Minimum Assist Ability Therapeutic Activity Bed mobility: supine to L sit with use of bed rail and Comments MOD A +1. Patient is slow with functional mobility to complete bed mobility. Gait belt donned while seated. Patient is able sit EOB with MARIE UE support. Transfer: sit to stand to 2WW is CGA to MIN A +1. Verbal cues for safe hand placement to push up into standing off EOB. Upon standing patient states she does not think she can walk. Patient ambulated ~3 feet to chair at bed side. Performs L turn with 2WW and positions self in front of chair. Verbal cues for use of hands to control descent to chair with CGA to MIN A+ 1. Patient is MOD A +2 to scoot back into chair. Assistance provided by . CBWR, tray placed beside chiar and chair alarm engaged. All needs are met. Patient verbalizes fatigue post treatment. Total Physical Therapy Time Total Therapy 20 Minutes Total Physical 1 Therapy Units Summary Daily Note Summary Patient with decreased ambulation this date due to fatigue. Patient would benefit from skilled placement upon DC to address functional deficit to allow return to PLOF.
--- NOTE | 2025-04-15 11:54 | P.DS_ITS ---
DS: Providers Provider Date of admission: 04/11/25 13:08 Primary care physician: Olivia Cazares MD Consults: 04/11/25 Consult to Technical Analyst Routine Reason for consult:: Intermediate 04/12/25 Occupational Therapy Eval and Treat Routine Reason for consultation: weakness Physical Therapy Eval and Treat Routine Reason for consultation: weakness Has provider been notified: Yes DS: Diagnosis Discharge Diagnosis (1) Bilateral hydronephrosis: (2) Pyelonephritis: (3) SUSAN (acute kidney injury): (4) Acute UTI: Plan As listed above, below and others that are not listed DS: Summary Hospital Course Hospital Course: Mrs. Cm is a 79-year-old female who came in with nausea and not feeling well. She was found to have the following: Septic shock present on admission, resolved Pyelonephritis, UTI. On appropriate antibiotic treatment for Klebsiella. Patient has been on Zosyn since admission. Patient will be discharged on oral Cefuroxime. Gas formation in the ureter and bladder. 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 Status post bilateral stent exchange completed by Dr. Natarajan on 03/26 Continue Zosyn patient is not a candidate for meropenem due to the degree of her kidney failure. Blood cultures negative. Urine cultures positive for Klebsiella that is sensitive to Zosyn. Patient will be discharged on oral cefuroxime. Monitor kidney function. Monitor electrolytes. Monitor bicarbonate. Kidney function had improved back to baseline which is consistent with stage IV. Elevated CRP but her lactic acid is normal. 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 1 dose of Lokelma. 1 dose of D50 and insulin Repeat potassium is 5. Continue to monitor. Continue to keep patient off spironolactone and valsartan. Kidney function is back to baseline. Resumed Lasix dose 40 mg daily due to leg kidney function reaching baseline stage IV to prevent fluid overload and prevent further hyperkalemia. Elevated troponin. Patient denies having any active chest pain. ECG showed chronic abnormalities ER physician I discussed her case with her iron assorter Dr. Cobb who stated that her troponin rise is secondary to high demand. He did not recommend any additional cardiovascular investigation at this time. Patient recently had left hip surgery without any complication. Resumed dual antiplatelet therapy post urology procedure. Resumed beta-breanna. Lower dose due to borderline hypotension Troponin is trending back to normal. Diabetes Accu-Chek with a sliding scale coverage. Continue Lantus. Increased dose for better control. Dose adjusted to keep blood sugar between 125 and 180. Bilateral lower extremities edema. Requested venous study rule out DVT. Ultrasound is negative for DVT Functional disability, bed and wheelchair bound. Patient is able to stand up and pivot a few steps. Patient is at baseline associated with lower extremity joint deformities and muscle wasting and atrophy. Patient [facility] be [facility]. Anemia. Hemoglobin dropped overnight secondary to aggressive hydration. No evidence of acute blood loss other than gross hematuria. Patient will likely require to have anemia workup to be done in the outpatient setting to be handled by PCP in collaboration with other needed outpatient providers. This may include but not limited to EGD, colonoscopy, referral to see hematology and other needed age-appropriate cancer screening. Liver lesion seen on imaging. This will need to be investigated further. May need to have MRI. Could be investigated further in the outpatient setting by PCP in collaboration with GI or hepatology if needed Chronic, subacute medical conditions not listed above, abnormal labs and imaging. These would need to be addressed. Could be addressed later on or in the outpatient setting by PCP collaboration with other needed outpatient providers when time and condition are appropriate. Patient has multiple complex medical issues as listed above and others that are not listed. All appear to be stable. I do not have any clear or strong clinical justification to extend inpatient hospitalization. Patient however will require close and frequent monitoring as well as additional work-up, in vestigation and therapeutic intervention that could take place from this point on post discharge. That is to prevent relapse, decompensation, rehospitalization and other medical implications.. I instructed patient to ask her primary care doctor to obtain [facility] record entirely to address abnormalities seen on labs and imaging that I have and have not addressed during this hospitalization, follow-up on pending blood work, imaging and pathology is if available and to follow-up on needed medical care in the outpatient setting. Time Spent with Patient Time attestation: Total time spent providing and/or coordinating discharge services: Exam Constitutional Vital Signs, click to edit/add: Last Vital Signs Temp 98.2 F 04/15/25 04:00 Pulse 61 04/15/25 09:56 Resp 20 04/15/25 07:30 BP 149/47 H 04/15/25 11:00 Pulse Ox 96 04/15/25 09:33 O2 Del Method Room Air 04/15/25 11:00 O2 Flow Rate 1 04/13/25 05:42 DS: Data Data Completed and Pending Labs on day of discharge: Labs from last 24 hours 04/15/25 04/14/25 04/14/25 05:58 22:34 16:31 Sodium 139 Potassium 5.0 Chloride 102 Carbon Dioxide 31.2 Anion Gap 10.8 BUN 51.0 H Creatinine 2.76 H Est GFR ( Amer) 20 L Est GFR (Non-Af Amer) 17 L BUN/Creatinine Ratio 18.5 Glucose 191 H Calcium 8.6 POC Glucose 227 H 279 H Preliminary micro results at discharge 04/11/25 14:51 Blood Culture Result 2 - Preliminary Blood NO GROWTH AT 36-48 HOURS. FINAL TO FOLLOW. 04/11/25 14:42 Blood Culture Result 1 - Preliminary Blood NO GROWTH AT 36-48 HOURS. FINAL TO FOLLOW. Discharge Plan Discharge Disposition: Xfer SNF Condition: Fair Discharge Medications: New carvedilol 3.125 mg Tablet 3.125 mg PO BID Qty: 0 0RF Glucagon Emergency Kit (human) 1 mg Recon Soln 1 mg IV Q15M PRN (Reason: Hypoglycemia) Qty: 0 0RF heparin (porcine) 5,000 unit/mL Solution 5,000 unit subcut BID Qty: 0 0RF insulin aspart U-100 [Novolog FlexPen U-100 Insulin] 100 unit/mL (3 mL) Insulin Pen 3 - 15 unit subcut ACHS Qty: 0 0RF insulin glargine [Lantus Solostar U-100 Insulin] 100 unit/mL (3 mL) Insulin Pen 25 unit SQ QHS Qty: 0 0RF Ensure Original 0.04-1.05 gram-kcal/mL Liquid 1 ea PO BID Qty: 0 0RF Insta-Glucose (with dextrin) 24 gram/31 gram Gel 31 g PO Q15M PRN (Reason: Hypoglycemia) Qty: 0 0RF cefuroxime axetil 250 mg tablet 250 mg PO BID 10 Days Qty: 20 0RF Continued allopurinol 300 mg tablet 300 mg PO DAILY aspirin 81 mg tablet,delayed release (DR/EC) 81 mg PO DAILY cholecalciferol (vitamin D3) 125 mcg (5,000 unit) tablet 125 mcg PO .every other day clopidogrel 75 mg tablet 75 mg PO DAILY furosemide 40 mg tablet 40 mg PO QAM rosuvastatin 5 mg tablet 10 mg PO DAILY pantoprazole 20 mg tablet,delayed release (DR/EC) 20 mg PO .qd Changed acetaminophen 500 mg tablet 500 mg PO Q8H PRN (Reason: fever or pain) Qty: 0 0RF Rx Instructions: 1,000 mg orally; Discontinued carvedilol 25 mg tablet 25 mg PO BID gabapentin 300 mg capsule 300 mg PO BID insulin aspart U-100 [Novolog FlexPen U-100 Insulin] 100 unit/mL (3 mL) insulin pen 1 sliding scale dose SUBCUT ACHS insulin glargine [Basaglar KwikPen U-100 Insulin] 100 unit/mL (3 mL) insulin pen 50 unit subcut .hs guaifenesin [Mucus Relief ER] 600 mg tablet extended release 12hr 600 mg PO Q12H valsartan 40 mg tablet 40 mg PO .qd spironolactone 25 mg tablet 12.5 mg PO .qd Print Language: Sammarinese Activity Restrictions/Additional Instructions: I may not have addressed or treated all of your medical illnesses or the abnormal blood work or imaging studies during this hospitalization. Please ask your primary care provider to obtain [facility] records entirely to follow up on all of the abnormal physical, laboratory, and imaging findings that I have not addressed. Please return back to the emergency room or seek medical attention if your symptoms worsen or return. For skilled nursing providers Fall risk Recommend CBC and BMP weekly for the next 3 [address] Follow up with Dr Natarajan Check blood sugar 3 times a day before meals. Communicate with [place] provider if your blood sugar is under 100 or above 300 on 2 consecutive checks. Communicate with [place] provider if you have any questions about your diabetes medications. Signs of a low blood sugar include sweating, racing heart, dizziness and/or weakness. Check your blood sugar if you have any of the symptoms. Please arrange for patient to have MRI of the liver in 4 to 6 weeks to take a better look at the 3.6 cm hypodensity at the hepatic dome Please pass information to primary care doctor to proceed with MRI of the abdomen arrangement to monitor liver lesion seen on non contrasted CT completed in the emergency room. Discharging you from [facility] does not mean that your medical care ends here and now. You may still need additional monitoring, work up, investigation, and treatment plan to be handled from this point on by out patient providers including your primary care provider and specialists. For any medication question, please contact your retail pharmacist or your primary care provider. Thank you. 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 Natarajan's lead android developer ([facility]) will contact the patient to schedule an appt. [phone] Fri. 04/20 @ 10am with Dr. Cazares [phone]
--- NOTE | 2025-04-15 12:06 | PC.NURSE ---
pt aware of transfer to [facility]. son at bedside, packed up belongings. report called to Dot at [facility].
--- NOTE | 2025-04-15 12:16 | SWNOTE1 ---
SW completed [id number] online.
[2025-04-15] MEDS: FUROSEMIDE 40 MG TABLET PO (12:22)
--- NOTE | 2025-04-15 12:28 | PC.NURSE ---
discharged to [facility] staff, taken to exit via wheelchair, family member has belongings
== END 2025-04-15 12:28 | DRG 853 ==
LOC: ER 12:46 → MS 13:14
PROVIDERS: Anesthesiology; Urology; Admitting Provider Internal Medicine; Emergency Provider Student in an Organized Health Care Education/Training Program; PCP Family Medicine; Visit Provider Internal Medicine
PROC: 0T788DZ Dilation of Bilateral Ureters with Intraluminal Device, Via Natural or Artificial Opening Endoscopic (ICD-10-PCS; principal; 2025-04-12 13:00)
DX: A41.9 Sepsis, unspecified organism (principal); R65.21 Severe sepsis with septic shock; N13.6 Pyonephrosis; I24.89 Other forms of acute ischemic heart disease; I13.0 Hypertensive heart and chronic kidney disease with heart failure and stage 1 through stage 4 chronic kidney disease, or unspecified chronic kidney disease; N17.9 Acute kidney failure, unspecified; N12 Tubulo-interstitial nephritis, not specified as acute or chronic; N18.4 Chronic kidney disease, stage 4 (severe); I50.9 Heart failure, unspecified; Z87.891 Personal history of nicotine dependence; E11.22 Type 2 diabetes mellitus with diabetic chronic kidney disease; E11.51 Type 2 diabetes mellitus with diabetic peripheral angiopathy without gangrene; Z79.4 Long term (current) use of insulin; I25.10 Atherosclerotic heart disease of native coronary artery without angina pectoris; Z87.440 Personal history of urinary (tract) infections; Z98.890 Other specified postprocedural states; Z96.649 Presence of unspecified artificial hip joint; Z95.828 Presence of other vascular implants and grafts; Z79.82 Long term (current) use of aspirin; Z95.1 Presence of aortocoronary bypass graft; Z99.3 Dependence on wheelchair; Z79.899 Other long term (current) drug therapy; M62.50 Muscle wasting and atrophy, not elsewhere classified, unspecified site; E11.40 Type 2 diabetes mellitus with diabetic neuropathy, unspecified; R60.0 Localized edema; Z74.01 Bed confinement status; D64.9 Anemia, unspecified; R31.0 Gross hematuria; K76.9 Liver disease, unspecified; E87.5 Hyperkalemia; R79.89 Other specified abnormal findings of blood chemistry; B96.1 Klebsiella pneumoniae [K. pneumoniae] as the cause of diseases classified elsewhere; Z96.0 Presence of urogenital implants; N99.81 Other intraoperative complications of genitourinary system
CPT/HCPCS: 36415; 51798; 74176; 76000; 80048; 80053; 81001; 82948; 83605; 83880; 84132; 84484; 85025; 85027; 86140; 87040; 87086; 87088; 87186; 93005; 93970; 94761; 96365; 97110; 97162; 97165; 97530; 97535; 99285; J0696; J0744; J1100; J1644; J1817; J2250; J2371; J2405; J2543; J2704; J3010; P9046

== ENCOUNTER 2025-05-02 09:54 | Inpatient (IN) | payer MEDICARE, SELFPAY ==
[2025-05-02] VITALS (24 sets, daily range): BP systolic 109–167; BP diastolic 58–116; PULSE 70–78; TEMP 36.4–36.9; O2SAT 92–100; BMI 34.5; BMI 36.3
--- NOTE | 2025-05-02 10:07 | XR_ITS ---
The [address] [address] Patient Name: ESTHER TATUM MRN: [id number] date: 1945 Sex: F Assigned Patient Location: ED.MAIN Current Patient Location: ED.MAIN Accession/Order Number: [id number] Exam Date: 05/02/2025 11:00 Report Date: 05/02/2025 11:20 At the request of: COREY RAMON Procedure: XR chest 1V XR chest 1V 05/02/2025 11:04 AM SIGNS AND SYMPTOMS: ^shortness of breath ^Y PROTOCOL: Frontal radiograph of the chest COMPARISON: 04/07/2025 FINDINGS: The trachea is midline. Atherosclerotic changes are present in the thoracic aorta. There is evidence of prior sternotomy. There is mild cardiomegaly with hazy airspace opacities greatest in the lung bases. This is worse when compared to the prior exam. The bony thorax is intact. XR/XR chest 1V IMPRESSION: There is mild cardiomegaly with hazy airspace opacities greatest in the lung bases. This is worse when compared to the prior exam. Impression dictated by: Rhett Ponce M.D. 05/02/2025 11:20 AM Dictation Location: [place] [address] Electronically authenticated by: [id number] Y Date: 05/02/2025 11:20
--- NOTE | 2025-05-02 10:07 | ECG_ITS ---
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: : 1945 Requested By: Dominick Razo Order Number: [id number] Reading MD: SHAISTA TAYLOR Measurements Intervals [place] Rate: 77 P: 16 WY: 206 QRS: -25 QRSD: 122 T: 167 QT: 416 QTc: 448 Interpretive Statements 1100 Sinus rhythm 3114 Cannot rule out anterior myocardial infarction, age undetermined 3634 Inferior myocardial infarction, age undetermined [address] depression, possible subendocardial injury 4564 Twave abnormality, possible lateral ischemia 9150 abnormal ECG Compared to ECG 04/12/2025 10:48:01 No significant changes Electronically Signed On 05-02-2025 13:17:44 EDT by SHAISTA TAYLOR
--- NOTE | 2025-05-02 10:27 | ED.SOB1 ---
HPI - SOB/Dyspnea General Chief Complaint: Shortness of Breath/Dyspnea Stated Complaint: WEAKNESS Time Seen by Provider: 05/02/25 10:07 Source: patient Mode of arrival: ambulance Limitations: no limitations History of Present Illness HPI Narrative: cc -shortness of breath [facility] extended-care facility called and notified us that this patient was going to be transferred to our facility for evaluation after she was weak and short of breath this morning. According to the report they gave, the patient has been having difficulty with her breathing for few days and has been needing increased assistance in transfers and general mobility. According to the report, she has been receiving antibiotics for pyelonephritis. History of CHF. EMS reported that the patient was hypoxic on their arrival. They gave the patient an albuterol and Atrovent nebulized treatment and placed her on 2 L/min nasal cannula oxygen. She did report some improvement of her symptoms. On arrival she denies any chest pain, palpitations, dizziness or lightheadedness. She admits to me that she has been short of breath and weak and that she has been coughing. Related Data Home Medications ?Medication ?Instructions ?Recorded ?Confirmed allopurinol 300 mg tablet 300 mg PO DAILY 08/30/23 05/02/25 aspirin 81 mg tablet,delayed 81 mg PO DAILY 08/30/23 05/02/25 release cholecalciferol (vitamin D3) 125 125 mcg PO .every other day 08/30/23 05/02/25 mcg (5,000 unit) tablet clopidogrel 75 mg tablet 75 mg PO DAILY 08/30/23 05/02/25 furosemide 40 mg tablet 40 mg PO QAM 08/30/23 05/02/25 pantoprazole 20 mg tablet,delayed 20 mg PO .qd 04/11/25 05/02/25 release acetaminophen 500 mg tablet 1,000 mg PO Q8H PRN fever or pain 05/02/25 05/02/25 atorvastatin 20 mg tablet 20 mg PO BEDTIME 05/02/25 05/02/25 gabapentin 100 mg capsule 100 mg PO BEDTIME 05/02/25 05/02/25 insulin aspart U-100 100 unit/mL 3 - 15 unit subcut ACHS 05/02/25 05/02/25 (3 mL) subcutaneous pen (Novolog FlexPen U-100 Insulin aspart) insulin glargine 100 unit/mL (3 25 unit subcut BEDTIME 05/02/25 05/02/25 mL) subcutaneous pen (Lantus Solostar U-100 Insulin) ipratropium 0.5 mg-albuterol 3 mg 3 ml inhalation Q6H PRN shortness 05/02/25 05/02/25 (2.5 mg base)/3 mL nebulization of breath or wheezing soln loperamide 2 mg capsule 2 mg PO Q6H PRN loose stool 05/02/25 05/02/25 (Anti-Diarrheal (loperamide)) Previous Rx's ?Medication ?Instructions ?Recorded carvedilol 3.125 mg tablet 3.125 mg PO BID #0 tabs 04/15/25 cefuroxime axetil 250 mg tablet 250 mg PO BID 10 days #20 tabs 04/15/25 bynqfokz-grvdlbk-dscerno 24 31 g PO Q15M PRN Hypoglycemia #0 04/15/25 gram/31 gram oral gel grams (Insta-Glucose (with dextrin)) glucagon 1 mg solution for 1 mg IV Q15M PRN Hypoglycemia #0 ea 04/15/25 injection (Glucagon Emergency Kit) Allergies Allergy/AdvReac Type Severity Reaction Status Date / Time No Known Drug Allergies Allergy Verified 04/07/25 13:32 [facility] Medical History (Updated 05/02/25 @ 12:29 by Dominick Razo) CHF (congestive heart failure) ?I50.9 - Heart failure, unspecified (ICD-10) Gout ?M10.9 - Gout, unspecified (ICD-10) Peripheral arterial disease ?I73.9 - Peripheral vascular disease, unspecified (ICD-10) Stage 3b chronic kidney disease (CKD) ?N18.32 - Chronic kidney disease, stage 3b (ICD-10) HTN (hypertension) ?I10 - Essential (primary) hypertension (ICD-10) Surgical History S/P hip replacement ?Z96.649 - Presence of unspecified artificial hip joint (ICD-10) History of aortic bifurcation bypass graft ?Z95.828 - Presence of other vascular implants and grafts (ICD-10) S/P triple vessel bypass ?Z95.1 - Presence of aortocoronary bypass graft (ICD-10) History of 3 sections ?Z98.891 - History of uterine scar from previous surgery (ICD-10) Family History Brother Family history of cancer Mother Family history of hypertension Father Family history of myocardial infarction Other Family history of CHF (congestive heart failure) Family history of diabetes mellitus Social History Within the past year, how often did you have a drink containing alcohol: never Score interpretation: A score less than 3 is consistent with normal alcohol consumption. Smoking status: Former smoker Non-prescribed substance use: denies use Previous occupational history: disabled Highest level of school completed/degree received: high school graduate Are you now , , , , never or living with a partner: In a typical week, how many times do you talk on the telephone with family, friends, or neighbors: 3 or more times per week How often do you get together with friends or relatives: 3 or more times per week How often do you attend denominational or hindu services: 4 or more times per year Little interest or pleasure in doing things: not at all Feeling down, depressed, or hopeless: not at all Feel stressed/tense/nervous/anxious/difficulty sleeping: not at all Do you think of yourself as: straight/heterosexual Gender Identity: female Exam Narrative Exam Narrative: Nurses notes and vital signs reviewed and patient is not hypoxic. afebrile General: Well-appearing and in no apparent distress. Skin: Warm, dry, no pallor noted. Head: Normocephalic, atraumatic. Neck: Supple, non-tender. No meningismus Eye: Pupils are equal, round and EOMI. No scleral icterus. Ears, Nose, Mouth, and Throat: Oral mucosa is moist Cardiovascular: Regular Rate and Rhythm without murmur, gallop or rub. Respiratory: No accessory muscle use or respiratory distress. Lungs with bibasilar rales and rhonchi Chest Wall: no tenderness, crepitus or subcutaneous emphysema Back: No midline thoracic or lumbar vertebral tenderness. No CVA tenderness Musculoskeletal: normal ROM, no calf or popliteal tenderness, trace bilateral lower extremity edema/swelling and left upper extremity edema from the shoulder to the hands GI: Abdomen is soft, non-distended. Normal bowel sounds. No tenderness to palpation. No rebound, guarding, or rigidity noted. Neurological: A&O x4, including reason for transfer to the emergency department. No cranial nerve dysfunction observed. No truncal ataxia but she is weak. Moves all extremities. Sensation intact. Psychiatric: Cooperative and interactive. Normal mood and affect. Constitutional Vital Signs, click to edit/add: Last Vital Signs Temp 97.6 F 05/02/25 09:56 Pulse 78 05/02/25 09:56 Resp 20 05/02/25 09:56 BP 164/91 H 05/02/25 12:12 Pulse Ox 96 05/02/25 10:21 O2 Del Method Nasal Cannula 05/02/25 10:21 O2 Flow Rate 2 05/02/25 10:21 Course Vital Signs Vital signs: Vital Signs Temperature 97.6 F 05/02/25 09:56 Pulse Rate 78 05/02/25 09:56 Respiratory Rate 20 05/02/25 09:56 Blood Pressure 149/102 H 05/02/25 09:56 Pulse Oximetry 92 L 05/02/25 09:56 Oxygen Delivery Method Nasal Cannula 05/02/25 09:56 Oxygen Delivery Flow Rate 2 05/02/25 09:56 Temperature 97.6 F 05/02/25 09:56 Pulse Rate 78 05/02/25 09:56 Respiratory Rate 20 05/02/25 09:56 Blood Pressure 164/91 H 05/02/25 12:12 Pulse Oximetry 96 05/02/25 10:21 Oxygen Delivery Method Nasal Cannula 05/02/25 10:21 Oxygen Delivery Flow Rate 2 05/02/25 10:21 MDM - SOB/Dyspnea MDM Narrative Medical decision making narrative: Patient was placed on cardiac catheterization technologist and EKG obtained. Blood drawn and sent for evaluation. Portable chest x-ray obtained. Chest x-ray shows mild cardiomegaly with hazy airspace opacities in the lung bases that appears worse compared to prior examination. This is consistent with the elevated BNP suggesting a CHF exacerbation. White blood cell count is normal although left shift is noted. Sodium mildly decreased, potassium elevated, chloride decreased, BUN is elevated above her baseline but creatinine is at her normal baseline value approximately 2.08. Troponin is normal. Patient improved after receiving DuoNeb treatment and route. I ordered her to receive 40 mg of Lasix IV and call the hospitalist to discuss the case. . Differential Diagnosis Differential diagnosis: Likely congestive heart failure, community acquired pneumonia and asthma with exacerbation Medical Records Attestation: I reviewed the patient's medical records. Lab Data Attestation: I reviewed the patient's lab results. Labs: Lab Results 05/02/25 05/02/25 Range/Units 10:15 10:45 WBC 10.0 (4.0-11.0) 10^3/uL RBC 3.18 L (4.20-5.40) 10^6/uL Hgb 9.9 L (12.0-16.0) g/dL Hct 32.3 L (36.0-48.0) % MCV 101.6 H (81.0-99.0) fL MCH 31.1 (26.7-34.0) pg MCHC 30.7 (29.9-35.2) g/dL RDW 15.9 H (11.0-15.0) % Plt Count 255 (150-450) 10^3/uL MPV 11.4 (9.5-13.5) fL Neut % (Auto) 78.8 H (43.0-75.0) % Lymph % (Auto) 15.2 L (20.5-60.0) % [place] % (Auto) 4.8 (1.7-12.0) % Eos % (Auto) 0.4 L (0.9-7.0) % Baso % (Auto) 0.4 (0.2-2.0) % Neut # (Auto) 7.9 H (1.4-6.5) 10^3/uL Lymph # (Auto) 1.5 (1.2-3.8) 10^3/uL [place]ee # (Auto) 0.5 (0.3-0.8) 10^3/uL Eos # (Auto) 0.0 (0.0-0.7) 10^3/uL Baso # (Auto) 0.0 (0.0-0.1) 10^3/uL Abs Immat Gran (auto) 0.04 H (0.00-0.03) 10^3/uL Imm/Tot Granulo (auto) 0.4 (0.0-0.5) % Sodium 129 L (136-145) mmol/L Potassium 5.2 H (3.5-5.1) mmol/L Chloride 91 L (98-107) mmol/L Carbon Dioxide 28.3 (21.0-32.0) mmol/L Anion Gap 14.9 BUN 70.0 H (7.0-18.0) mg/dL Creatinine 2.08 H (0.55-1.02) mg/dL Est GFR ( Amer) 28 L (>=60 mL/min/1.73m^2) Est GFR (Non-Af Amer) 23 L (>=60 mL/min/1.73m^2) BUN/Creatinine Ratio 33.7 Glucose 182 H (74-106) mg/dL Lactate 1.0 (0.4-2.0) mmol/L Calcium 8.9 (8.5-10.1) mg/dL Magnesium 2.4 (1.8-2.4) mg/dL Troponin I High Sens 17.8 (4.0-51.3) pg/mL NT-Pro-B Natriuret Pep 42212.0 H* (<=1800.0) pg/mL Influenza Type A Ag Negative Influenza Type B Ag Negative SARS-CoV-2 Ag (CV2AG) Negative (NEGATIVE) Imaging Data Chest x-ray: Radiologist's impression: ITS Impressions Chest X-Ray 05/02/25 10:07 IMPRESSION: There is mild cardiomegaly with hazy airspace opacities greatest in the lung bases. This is worse when compared to the prior exam. Impression dictated by: Rhett Ponce M.D. 05/02/2025 11:20 AM Dictation Location: [place] [id number] Electronically authenticated by: [id number] Y Date: 05/02/2025 11:20 ECG Data Attestation: I personally reviewed and interpreted this ECG as follows: Interpretation: EKG interpretation:Emergency Department physician interpretation.Normal sinus rhythm at 77bpm.lateral ST depression, possible subendocardial injury -leads I, aVL, V5 and V6. Normal axis, no ST segment elevation. Discharge Plan Discharge Chief Complaint: Shortness of Breath/Dyspnea Clinical Impression: Congestive heart failure, SUSAN (acute kidney injury) Patient Disposition: Admitted As Inpatient Time of Disposition Decision: 12:28
--- OUTSIDE RECORDS SUMMARY | 2025-05-02 10:53 | XMS_ITS | CCD ---
Author Organization [facility] Care Team Providers Care 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 Name Role Phone CHAO CHAPMAN Unavailable Unavailable LEE, LI Unavailable Unavailable CHAO CHAPMAN Unavailable Unavailable LEE, LI Unavailable Unavailable PHYSICIAN, DEFAULT Unavailable Unavailable PHYSICIAN, DEFAULT Unavailable Unavailable Li Lee Unavailable Unavailable Unavailable ROSA, DR LI Conley Primary Care Unavailable LEE, DR LI Conley Admitting Unavailable LEE, DR LI Conley Attending Unavailable LEE, DR LI Conley Consulting Unavailable [place], DR Ren Consulting Unavailable LEE, DR LI [...] LEE, DR LI Conley Attending Unavailable McGuinn IIShahrzad Referring Unav ailable LeeLi Primary Care Unavailable McGuinn IIShahrzad Attending Unav ailable McGuinn II, Shahrzad Green Referring Unav ailable Lee, Li Miller Primary Care Unavailable McGuinn MIMA, Shahrzad Green Attending Unav ailable MD Li Lee Primary Care Provider MD Ross Colmenares Attending Provider [phone] Ross Colmenares Unavailable Maxine Llanes Primary Care Physician Da Lozano II Unavailable Shahrzad Morales MD Unavailable Stefan Best MD Primary Care Provider MD Stefan Best Primary Care Provider MD Da Lozano II Attending Provider MD Alyssa Ramírez Emergency Provider DO Norberto Pires Admit Provider DO Rl Piresistopher Attending Provider MD Gita Azevedo Other Provider MD Yaniv Natarajan Other Provider Shraddha, BLOOD DONOR RECRUITER Maxine L Attending Unavailable Shraddha, BLOOD DONOR RECRUITER Maxine L Attending Unavailable Shraddha, BLOOD DONOR RECRUITER Maxine L Attending Unavailable Shraddha, BLOOD DONOR RECRUITER Maxine L Attending Unavailable Shraddha, BLOOD DONOR RECRUITER Maxine L Attending Unavailable Shraddha, BLOOD DONOR RECRUITER Maxine L Attending Unavailable COOK, Yaniv P Attending Unavailable Shraddha, BLOOD DONOR RECRUITER Maxine L Attending Unavailable Shraddha, BLOOD DONOR RECRUITER Maxine L Admitting Unavailable Shraddha, BLOOD DONOR RECRUITER Maxine L Attending Unavailable Shraddha, BLOOD DONOR RECRUITER Maxine L Admitting Unavailable COOK, Yaniv P Attending Unavailable COOK, Yaniv P Referring Unavailable COOKYaniv P Attending Unavailable Shraddha, BLOOD DONOR RECRUITER Maxine L Attending Unavailable Shraddha, BLOOD DONOR RECRUITER Maxine L Attending Unavailable Baljit Hawkins Attending Unavailable Damian RUSS Admitting Unavailable OJUKWU, Mbanefo Attending Unavailable OJUKWU, Mbanefo Admitting Unavailable STEFAN BEST Primary Care Physician Allison CHANCE Attending Unavailable KADE, Mbyokastafo Admitting Unavailable MD Stefan Best Primary Care Provider [phone] MD Stefan Best Attending Provider SHAHRZAD MORALES Referring Unavailable STEFAN BEST Primary Care Unavailable SHAHRZAD MORALES Referring Unavailable STEFAN BEST Primary Care Unavailable Stefan Best MD Attending Provider Stefan Best MD Primary Care Provider Yaniv Natarajan MD Attending Provider Stefan Best MD Attending Provider Da Lozano MD Attending Provider Stefan Best MD Primary Care Provider Stefan Best MD Primary Care Provider Sage MARLOW, Stefan Conley Attending Provider [phone] Da Lozano MD Attending Provider Sage MARLOW, Stefan Conley Primary Care Provider Stefan Best MD Attending Provider Stefan Best MD Primary Care Provider Yaniv Natarajan MD Attending Provider Stefan Best MD Attending Provider Stefan Best MD Attending Provider Stefan Best MD Primary Care Provider Da Lozano MD Attending Provider Leroy Ashby MD Attending Provider Stefan Best MD Primary Care Provider Stefan Best MD Attending Provider ANGELA BRAUN Attending Unavailable SHAHRZAD MORALES Referring Unavailable STEFAN BEST Primary Care Unavailable Da Lozano MD Other Provider [phone] Earnest Ferrari MD Other Provider Joaquín ROB, Lily Other Provider Unavailable Brandon ROB, Jacinda Other Provider Unavailable Sherrie Yoder RN Other Provider Unavailable Namrata Marshall RN Other Provider Unavailable Selene Taylor RN Other Provider Unavailable Kalyani Ferrari RN Other Provider Unavailable Trace Alvarez MD Other Provider Clayton De La Curz DO Other Provider Stewart Osorio MD Other Provider Norberto Pires DO Other Provider Mateo Schaeffer MD Other Provider Maxine Ovalle MD Other Provider David Maher DO Other Provider Mason Rivera MD Other Provider Unavailable Vandana Urbina APRN Other Provider Serina Ruff MD Other Provider Nathan Gibson MD Other Provider Unavailable Los Ventura MD Other Provider Saimajesúslesli David RAVI Other Provider Jj Muniz MD Other Provider Liss MARLOW, Aldair Other Provider Coleman DRILLER OPERATOR-C, Salud Ybarra Other Provider Crissy Smith APRN Other Provider Unavailable Dany Schroeder MD Other Provider Hernan Mai MD Other Provider Markel Ledbetter MD Other Provider Unavailable Chevy Espino DO Other Provider Vy Ortiz APRN Other Provider Juice Mackenzie DO Other Provider Rhona MARLOW, Nikolai Artis Other Provider Goldie Braun APRN Other Provider Jelena Inman APRN Other Provider [phone] Bruce MARLOW, Katiana Other Provider Unavailable Jagjit Atkinson MD Other Provider Roberto Jaime DO Other Provider Herman Bella MD Other Provider Nithya Alvarado MD Other Provider [phone] Francisca Escudero APRN Other Provider Unavailable Nishi Welsh MD Other Provider Earnest Noel MD Other Provider [phone] Mason Flanagan MD Other Provider Hill Marmolejo MD Other Provider Denise BRAND, Maryana Dinero Other Provider Susanne Rodriguez APRN Other Provider Lexi South RN Other Provider Unavailable Elle MARLOW, Farhat Soliman Attending Provider Elle MARLOW, Farhat Soliman Admit Provider Elle MARLOW, Farhat Soliman Other Provider Mindy De Jesus APRN Attending Provider Gunnar RAVI, David Other Provider Unavailab Gardenia Lepe CMA Attending Provider Unavaila Stefan Momin MD Primary Care Provider Stefan Best MD Attending Provider [phone] Da Lozano MD Attending Provider Leroy Ashby MD Attending Provider Da Lozano MD Other Provider Earnest Ferrari MD Other Provider Joaquín RN, Lily Other Provider Unavailable Brandon RN, Jacinda Other Provider Unavailable Paresh RN, Sherrie Other Provider Unavailable Joanna RN, Namrata Other Provider Unavailable Brandon RN, Selene Other Provider Unavailable Vega ROB, Kalyani Other Provider Unavailable Trace Alvarez MD Other Provider Clayton De La Cruz DO Other Provider Stewart Osorio MD Other Provider Norberto Pires DO Other Provider Mateo Schaeffer MD Other Provider Yamile MARLOW, Maxine Other Provider David Maher DO Other Provider Unavailab demetrio Rivera MD, Mason Other Provider Unavailable Vandana Urbina APRN Other Provider Serina Ruff MD Other Provider Nathan Gibson MD Other Provider Unavailable Los Ventura MD Other Provider David Patel DO Other Provider Jj Muniz MD Other Provider Aldair Leija MD Other Provider Coleman DRILLER OPERATOR-C, Salud Ybarra Other Provider Crissy Smith APRN Other Provider Unavailable Dany Schroeder MD Other Provider Sergei MARLOW, Hernan Other Provider Markel Ledbetter MD Other Provider Unavailable KenzieChevy young DO Other Provider Vy Ortiz APRN Other Provider Juice Mackenzie DO Other Provider Rhona MARLOW, Nikolai Artis Other Provider Goldie Braun APRN Other Provider Jelena Inman APRN Other Provider Bruce MARLOW, Katiana Other Provider Unavailable Jagjit Atkinson MD Other Provider Addisonleonela RAVI Yadiego Other Provider Shayne MARLOW, Herman Vela Other Provider Nithya Alvarado MD Other Provider Francisca Escudero APRN Other Provider Unavailable Nishi Welsh MD Other Provider Earnest Noel MD Other Provider Mason Flanagan MD Other Provider Hill Marmolejo MD Other Provider Maryana Walker APRN Other Provider Susanne Rodriguez APRN Other Provider Akosua ROB, Lexi Other Provider Unavailable Elle MARLOW, Farhat Soliman Attending Provider [phone] Elle MARLOW, Farhat Soliman Admit Provider [phone] Elle MARLOW, Farhat Soliman Other Provider Mindy De Jesus APRN Attending Provider Gardenia Castellanos CMA Attending Provider Unavaila haydee Chapman MD, Chao Attending Provider [phone] Juice Mackenzie DO Admit Provider Janelle Crandall RN Other Provider Unavailable Montana Cobb DO Other Provider Neris MARLOW, Charlotte Other Provider [phone] Saima Bae MD Other Provider Angela Braun APRN Other Provider [phone] Kandi Villeda MD Other Provider [facility] Other Provider Mateo Schaeffer MD Attending Provider [phone] Stefan Best MD Primary Care Provider Stefan Best MD Attending Provider [phone] Robby Light DO Attending Provider [phone] Yaniv NATARAJAN P Attending Unavailable Freddie NATARAJANory P Referring Unavailable Yaniv NATARAJAN P Attending Unavailable Yaniv NATARAJAN P Attending Unavailable Yaniv NATARAJAN P Attending Unavailable Stefan Best Primary Care Unavailable Delgado, Yaniv P Admitting Unavailable CookYaniv P Attending Unavailable Stefan Best Primary Care Unavailable Yaniv Natarajan P Admitting Unavailable Yaniv Natarajan P Attending Unavailable Adolfo, Isiah T Attending Unavailable Stefan Best E Primary Care Unavailable Isiah Mata T Admitting Unavailable Stefan Best Primary Care Unavailable Mateo Schaeffer Attending Unavailable Mischler, Janelle Consulting Unavailable Juice Mackenzie Admitting Unavailable Madhavier, Janelle Consulting Unavailable Montana Cobb Consulting Unavailable Charlotte Cordon Consulting Unavailable Saima Bae Consulting Unavailable Angela Braun Consulting Unavailable Kandi Villeda Consulting Unavailable Elisa Walker Consulting Unavailable Earnest Ferrari Consulting Unavailable Stefan Best Primary Care Unavailable Da Lozano II Admitting UnavailDa Aranda II Attending UnavailLily Luong Consulting Unavailable Brandon Jacinda Consulting Unavailable Sherrie Yoder Consulting Unavailable [...] Smith Consulting Unavailable DoDany palm Consulting Unavailab Hernan Adkins Consulting Unavailable Markel Ledbetter Consulting Unavailable Chevy Espino Consulting Unavailable Vy Ortiz Consulting Unavailable Juice Mackenzie Consulting Unavailable DaromaNikolai andrew Consulting Unavailable Goldie Braun Consulting Unavailable Jelena Inman Consulting Unavailable Alamartin Alaa Consulting Unavailable Jagjit Atkinson Consulting Unavailable Addison, Yadiego Consulting Unavailable Herman Bella Consulting Unavailable Nithya Alvarado Consulting Unava ilFrancisca Perez Consulting Unavailable Nishi Welsh Consulting Unavailable Earnest Noel Consulting Unavailable Mason Flanagan Consulting Unavailable Hill Marmolejo Consulting Unavailable Maryana Walker Consulting Unavailable Bolzaprudence-Susanne Powell Consulting Unavaila Lexi Sloan Consulting Unavailable Stefan [...] Smith Consulting Unavailable Dany Schroeder Consulting Unavailab Hernan Adkins Consulting Unavailable Markel Ledbetter Consulting Unavailable Chevy Espino Consulting Unavailable Vy Ortiz Consulting Unavailable Juice Mackenzie Consulting Unavailable HenryomaNikolai andrew Consulting Unavailable Goldie Braun Consulting Unavailable Jelena Inman Consulting Unavailable Alamartin Alaa Consulting Unavailable Jagjit Atkinson Consulting Unavailable Addison, Yazid Consulting Unavailable Herman Bella Consulting Unavailable Nithya Alvarado Consulting Unava luzable Francisca Escudero Consulting Unavailable Nishi Welsh Consulting Unavailable Earnest Noel Consulting Unavailable Mason Flanagan S Consulting Unavailable Jaleel Hill Consulting Unavailable Maryana Walker Consulting Unavailable Bolzaprudence-Sherry Nicolettmadeleine Consulting UnavailLexi Marks Consulting Unavailable Da Lozano II Admitting UnavailStefan Wiseman Primary Care Unavailable Da Lozano II Attending UnavailRobby Silva Admitting Unavailable Robby Light Attending Unavailable Stefan Best Admitting Unavailable Stefan Best Attending Unavailable Stefan Best Primary Care Unavailable Da Lozano II Admitting UnavailStefan Wiseman Primary Care Unavailable Da Lozano II Attending UnavailStefan Wiseman Primary Care Unavailable Da Lozano II Admitting UnavailDa Aranda II Attending Unavailabl e Best, Stefan E Admitting Unavailable Stefan Best Attending Unavailable Best, Stefan E Primary Care Unavailable Best, Stefan E Primary Care Unavailable Stefan Best E Admitting Unavailable Stefan Best Attending Unavailable Blake II, Da Artis Admitting Unavailabl e Best, Stefan E Primary Care Unavailable Blake II, Da Artis Attending Unavailabl e Stefan Best E Primary Care Unavailable Blake II, Da Artis Attending Unavailabl e Blake II, Da Artis Admitting Unavailabl e Sage, Stefan E Primary Care Unavailable Yaniv Natarajan Attending Unavailable Yaniv Natarajan Admitting Unavailable Max II, Da Artis Admitting Unavailabl e Sage, Stefan E Primary Care Unavailable Max II, Da Artis Attending Unavailabl e Unavailable Primary Care Provider Unavaildarcy e Allergies Allergy Classification Reported Allergen(s) Allergy Type Date of Onset Reaction(s) Facility (15 sources) Angiotensin Converting Enzyme (Williams) Inhibitors; Translations: [WILLIAMS Inhibitors] Allergy to drug (finding) 3 Hyperkalemia, Other [facility] Repository (20 sources) atorvastatin; Translations: [atorvastatin] Drug Allergy 3 Myalgia [facility] (13 sources) Hmg-Coa Reductase Inhibitors (Statins); Translations: [Statins] Allergy to drug (finding) Myalgia [place] [id number] DO Work Phone: (5 sources) rosuvastatin; Translations: [rosuvastatin] Drug Allergy My[place] [address] DO Work Phone: (20 sources) Spironolactone; Translations: [spironolactone] Drug Allergy 3 Other [place] [address] DO Work Phone: (1 source) Iodine (And Iodine Containting Drugs) Drug allergy (disorder) [facility] Repository (1 source) Pravastatin Drug Allergy [facility] Repository (2 sources) Simvastatin Drug Allergy [facility] Repository (1 source) Sulfonamides (Antibiotic) Drug allergy (disorder) [facility] Repository (6 sources) Adhesive Tape Drug allergy rash [facility] Other (11 sources) Pravastatin; Translations: [pravastatin] Drug Allergy Unknown [facility] (12 sources) Angiotensin-conv erting enzyme inhibitor agent Drug Allergy 3 Other [facility] (14 sources) HMG-CoA reductase inhibitor; Translations: [[id number] REDUCTASE INHIBITORS] Drug Allergy 3 Myalgia [facility] Work Phone: (20 sources) Adhesive Tape; Translations: [adhesive tape] Allergy to substance 4 rash [facility] (20 sources) blue dye; Translations: [blue dye] Allergy to substance 4 Nausea [facility] Comment on above: dye used with xray c auses patient to vomit (20 sources) semaglutide; Translations: [semaglutide] Allergy to substance 4 nausea, vomiting [facility] Medications Current Medications Medication Drug Class(es) Dates Sig (Normalized) Sig (Original) allopurinol 300 mg oral tablet (20 sources) Xanthine Oxidase Inhibitor Start: 03-01-2025 Start: 05-14-2017 End: 03-01-2025 ascorbic acid 1000 mg oral t ablet (20 sources) Vitamin C Start: 01-31-2025 Start: 03-01-2024 End: 10-22-2024 Start: 12-05-2023 End: 03-01-2024 Start: 09-11-2017 End: 09-09-2023 Start: 07-16-2017 End: 09-11-2017 Start: 05-14-2017 End: 07-16-2017 Vitamin C 500 MG Orally Active aspirin 81 mg delayed release oral tablet (20 sources) Platelet Aggregation Inhibitor, Nonsteroidal Anti-inflammatory Drug Start: 05-14-2017 End: 07-29-2025 take 1 tablet by dayo th every twenty-four hours Aspirin 81 MG 1 tablet Orally Once a day Active Aspirin 81 MG Or al Tablet Delayed Release Quantity: 0 Refills: 0 Ordered: 19-Dec-2016 DO Active carvedilol 25 mg oral tablet (20 sources) alpha-Adrenergic Miquel, beta-Adrenergic Miquel Start: 07-22-2018 End: 07-01-2025 Start: 06-23-2017 End: 07-22-2018 cephalexin 500 mg oral capsule (1 source) Cephalosporin Antibacterial Start: 02-29-2024 End: 03-04-2024 take 1 capsule by mouth three times daily Keflex 500 mg Cap 500 mg = 1 cap(s), Oral, TID, X 4 day(s), # 12 cap(s), Refills(s) 0, Pharmacy: [facility] 1155, 150, cm, 02/26/24 17:34:00 EDT, Height/Length Dosing, 76.4, kg, 02/26/24 17:34:00 EDT, Weight Dosing Start Date: 02/29/24 Stop Date: 03/04/24 Status: Ordered clopidogrel 75 mg oral tablet (20 sources) P2Y12 Platelet Inhibitor Start: 05-14-2017 End: 09-17-2023 dimenhyDRINATE (6 sources) Dramamine Active insulin aspart 100 units/mL injectable solution [...] needed, # 15 mL, Refills(s) 1, Pharmacy: [facility], 143, cm, 08/20/23 16:15:00 EST, Height/Length Dosing, 75.7, kg, 08/20/23 16:15:00 EST, Weight Dosing Start Date: 08/21/23 Status: Ordered potassium chloride 10 meq extended release oral tablet (20 sources) Start: 03-03-2025 End: 04-09-2025 Start: 09-12-2023 End: 08-03-2024 Start: 09-03-2023 take 1 tablet by dayo once daily potassium chloride 10 mEq ER Tab 10 mEq = 1 tab(s), Oral, Daily, Oral, # 30 tab(s), Refills(s) 5, Pharmacy: [facility]5, 143, cm, 08/20/23 16:15:00 EST, [...] Extended Release Quantity: 30 Refills: 0 Ordered: 1-Joey-2022 DO Start : 12-Dec-2021 Active Start: 05-14-2017 End: 06-25-2017 take 1 tablet by dayo th once daily Potassium Chloride ER 20 MEQ Oral Tablet Extended Release Take 1 tablet daily Quantity: 0 Refills: 0 Ordered: 19-Dec-2016 DO Active rosuvastatin calcium 10 mg o ral tablet (20 sources) HMG-CoA Reductase Inhibitor Start: 04-09-2025 Start: 03-03-2025 End: 04-09-2025 Start: 03-01-2025 End: 03-03-2025 Start: 06-23-2017 End: 03-01-2025 take 1 tablet by dayo th every twenty-four hours Rosuvastatin Calcium 20 MG 1 tablet Orally Once a day Active spironolactone 25 mg oral ta blet (20 sources) Aldosterone Antagonist Start: 04-09-2025 Start: 06-23-2017 End: 09-09-2023 valsartan 40 mg oral tablet (2 sources) Angiotensin 2 Receptor Miquel Start: 04-09-2025 Vitamin C 500 MG (5 sources) Vitamin C 500 MG Orally Active Vitamin C 500 mg oral tablet, chewable (1 source) Start: 02-27-2024 take 1 tablet by mouth once daily Vitamin C 500 mg oral tablet, chewable 500 mg = 1 tab(s), Chewed, Daily, Refills(s) 0 Start Date: 02/27/24 Status: Ordered Vitamin D Oral (1 source) Start: 02-27-2024 Vitamin D Oral 50,000 International_Un it, Oral, Daily, Refills(s) 0 Start Date: 02/27/24 Status: Ordered Vitamin D-3 5000 UNIT (6 sources) take 1 tablet by mouth once daily Vitamin D-3 5000 UNIT 1 tablet Orally Once a day Active Completed/Discontinued Medications Medication Drug Class(es) Dates Sig (Normalized) Sig (Original) acetaminophen 500 mg oral tablet (20 sources) Start: 03-03-2025 End: 04-04-2025 Start: 03-03-2025 End: 03-21-2025 take 2 tablets by mouth every six hours as needed for pain Acetaminophen (Acetaminophen Extra Strength) 500 mg tablet Discontinued 1000 MG PO Every 6 hours as needed for pain March 03, 2025 12:00am March 21, 2025 7:32am Start: 01-12-2024 End: 04-04-2025 Start: 01-12-2024 take 1300 mg by mout h every twelve hours Acetaminophen Active 1300 MG PO Every 12 hours January 12, 2024 12:00am Start: 08-20-2023 Tylenol 650 mg , Oral, Refills(s) 0 Start Date: 08/20/23 Status: Ordered Start: 07-20-2018 End: 01-12-2024 Start: 07-16-2017 End: 09-11-2017 Start: 07-16-2017 End: 09-11-2017 Acetaminophen (Tylenol Arthr [...] 0 Refills: 0 Ordered: 02-Nov-2021 DO Active acetaminophen 325 mg / oxyCODONE hydrochloride 5 mg oral tablet (5 sources) Opioid Agonist take 1 tablet by mouth every six hours as needed for pain Percocet 5-325 MG Oral Tablet TAKE 1 TABLET EVERY 6 HOURS NEEDED FOR PAIN. Quantity: 0 Refills: 0 Ordered: 19-Dec-2016 DO Active albuterol 0.833 mg/ml / ipratropium bromide 0.167 mg/ml inhalation solution (4 sources) Anticholinergic, beta2-Adrenergic Agonist Start: 04-04-2025 End: 04-06-2025 Start: 04-04-2025 End: 04-06-2025 take 1 mL by inhalation four times daily Ipratropium-Albuterol 0.5 mg-3 mg(2.5 mg base)/3 mL Solution For Nebulization Discontinued 3 ML INHALATION Four times daily - Respiratory 90 April 04, 2025 12:00am April 06, 2025 3:31pm atorvastatin 80 mg oral tabl et (20 sources) HMG-CoA Reductase Inhibitor Start: 05-14-2017 End: 06-23-2017 cefadroxil 500 mg oral capsu le (7 sources) Cephalosporin Antibacterial Start: 03-09-2025 End: 04-04-2025 cholecalciferol 0.125 mg ora l capsule (20 sources) Vitamin D Start: 01-12-2024 End: 02-08-2025 Start: 01-12-2024 End: 02-08-2025 Start: 2023 take 1 tablet by dayo [...] 0 2023 Active Start: 09-11-2017 End: 01-12-2024 Start: 09-11-2017 End: 01-12-2024 take 1 capsule by mouth once daily Cholecalciferol (Vitamin D3) (Vitamin D3) 1,000 unit Capsule Discontinued 1000 UNIT PO Daily September 11, 2017 1:00am January 12, 2024 4:16pm Start: 07-16-2017 End: 09-11-2017 Start: 07-16-2017 End: 09-11-2017 Cholecalciferol (Vitamin D3) (Vitamin D3) 5,000 unit Tablet Discontinued 5000 MG PO Daily July 16, 2017 1:00am September 11, 2017 8:54am Start: 05-14-2017 End: 07-16-2017 Start: 05-14-2017 End: 07-16-2017 take 1 capsule by mouth once daily Cholecalciferol (Vitamin D3) (Vitamin D3) 1,000 unit Capsule Discontinued 1000 UNIT PO Daily 0 June 25, 2017 11:05am July 16, 2017 9:38am ciprofloxacin 250 mg oral ta blet (20 sources) Quinolone Antimicrobial Start: 11-15-2024 End: 01-11-2025 Start: 2024 End: 06-24-2024 Start: 05-25-2024 End: 2024 Start: 04-07-2024 End: 05-20-2024 docusate sodium 100 mg oral capsule (20 sources) Start: 08-20-2023 Colace Oral, D aily, Refills(s) 0 Start Date: 08/20/23 Status: Ordered Start: 06-23-2017 End: 04-04-2025 Start: 06-23-2017 End: 01-12-2024 take 1 capsule by mouth twice daily as needed for constipation Docusate Sodium (Colace) 100 mg Capsule Discontinued 100 MG PO Twice daily as needed for Constipation June 23, 2017 1:00am January 12, 2024 4:21pm take 1 tablet by mouth once sayda y Docusate Sodium 100 MG Oral Tablet TAKE 1 TABLET DAILY DIRECTED. Quantity: 0 Refills: 0 Ordered: 19-Dec-2016 DO Active docusate sodium 50 mg / traci osides, alf 8.6 mg oral tablet (7 sources) Start: 03-09-2025 End: 04-04-2025 Start: 03-09-2025 End: 04-04-2025 take 2 tablets by mouth once daily Sennosides-Docusate Sodium (Senokot-S) 8.6-50 mg tablet Discontinued 2 TAB PO daily March 09, 2025 12:00am April 04, 2025 10:32am DO NOT RECONCILE UNTIL DOS:03/21/2025 MED TO BED ferrous sulfate 325 mg oral tablet (20 sources) Start: 01-26-2025 End: 04-09-2025 Start: 06-24-2024 End: 10-22-2024 Start: 06-24-2024 End: 10-22-2024 take 1 tablet [...] 2024 2:46pm 2024 8:26am Start: 12-05-2023 End: 2024 fluconazole 150 mg oral tabl et (20 sources) Azole Antifungal Start: 02-18-2025 End: 03-03-2025 Start: 01-13-2025 End: 02-08-2025 furosemide 40 mg oral tablet (20 sources) Loop Diuretic Start: 10-11-2021 End: 04-09-2025 Start: 05-14-2017 End: 01-12-2024 take 1 tablet by dayo twice daily Furosemide 40 MG Oral Tablet Take 1 tablet twice daily Quantity: 0 Refills: 0 Ordered: 19-Dec-2016 DO Active gabapentin 300 mg oral capsu le (20 sources) Anti-epileptic Agent Start: 04-29-2024 End: 02-28-2025 Start: 02-02-2024 End: 03-22-2024 Start: 07-03-2023 End: 04-29-2024 Start: 02-05-2023 gabapentin 300 mg Cap Oral, Refills(s) 0 Start Date: 02/05/23 Status: Ordered Start: 06-15-2021 take 1 capsule by mo [facility] twice daily Gabapentin 300 MG Oral Capsule TAKE ONE CAPSULE BY MOUTH TWICE A DAY Quantity: 60 Refills: 0 Ordered: 12-Dec-2021 DO Start : 15-Jun-2021 Active Start: 09-11-2017 End: 02-02-2024 Start: 09-11-2017 End: 02-02-2024 take 300 mg by mouth twice daily Gabapentin Discontinu ed 300 MG PO Twice daily September 11, 2017 1:00am February 02, 2024 9:04am Start: 06-25-2017 End: 09-11-2017 Start: 05-14-2017 End: 06-25-2017 Start: 05-14-2017 End: 06-25-2017 take 2 capsules [...] 25, 2017 11:51am take 1 capsule by [facility] every twenty-four hours Gabapentin 300 MG 1 capsule before bedtime Orally Once a day Active Gabapentin 100 M G TABS TAKE 1 TABLET 3 TIMES DAILY. Quantity: 0 Refills: 0 Ordered: 19-Dec-2016 DO Active 12 hr guaiFENesin 600 mg extended release oral tablet (4 sources) Start: 04-04-2025 End: 04-06-2025 Insulin Aspart U-100 (Novolo g Flexpen U-100 [...] scale, # 15 mL, Refills(s) 3, Pharmacy: [facility], 143, cm, 08/20/23 16:15:00 EST, Height/Length Dosing, 75.7, kg, 08/20/23 16:15:00 EST, Weight Dosing Start Date: 09/03/23 Status: Ordered Start: 02-11-2023 NovoLOG Flexpe n U-100 Insulin 100 unit/mL (3 mL) pen INJECT 20 UNITS VIA SUBCUTANEOUS ROUTE NEEDED PER SLIDING SCALE 02/11/2023 Active Start: 05-14-2017 End: 04-04-2025 Start: 05-14-2017 End: 10-14-2024 Insulin Aspart U-100 [...] Protocol details. NovoLOG Active 3 ml insulin glargine 100 unt/ml pen injector (20 sources) Insulin Analog Start: 07-01-2024 End: 10-22-2024 Insulin Glargine (Basaglar Kwikpen U-100 Insulin) 100 unit/mL (3 mL) insulin pen Discontinued 60 UNIT SUBCUT Every evening 54 90 July 02, 2024 3:24pm October 22, 2024 7:06am Start: 10-08-2023 Basaglar KwikP en 100 units/mL subcutaneous solution 50 unit(s), SubCutaneous, Daily, # 45 mL, Refills(s) 2, Pharmacy: [facility], 143, cm, 08/20/23 16:15:00 EST, Height/Length Dosing, 75.7, kg, 08/20/23 16:15:00 EST, Weight Dosing Start Date: 10/08/23 Status: Ordered Start: 02-10-2023 Basaglar KwikP en 100 units/mL subcutaneous solution 50 unit(s), SubCutaneous, Daily, # 15 mL, Refills(s) 2, Pharmacy: [facility], 140.6, cm, 02/10/23 11:29:00 EDT, Height/Length Dosing, 79.2, kg, 02/10/23 11:29:00 EDT, Weight Dosing Start Date: 02/10/23 Status: Ordered Start: 02-07-2023 Basaglar KwikP en 100 units/mL subcutaneous solution See Instructions, 50 units daily, # 15 mL, Refills(s) 0, Pharmacy: [place] [id number] Start Date: 02/07/23 Status: Ordered Start: 01-31-2021 Basaglar KwikP en 100 UNIT/ML Subcutaneous Solution Pen- injector INJECT 50 UNITS AT BEDTIME Quantity: 15 Refills: 0 Ordered: 12-Dec-2021 DO Start : 31-Jan-2021 Active Start: 09-11-2017 End: 04-09-2025 Start: 09-11-2017 End: 12-03-2024 Insulin Glargine (Basaglar K wikpen U-100 Insulin) 100 unit/mL (3 mL) insulin pen Discontinued 50 UNIT SUBCUT Every evening October 22, 2024 12:00am December 03, 2024 12:24pm Start: 09-11-2017 End: 01-12-2024 Insulin Glargine (Basaglar K wikpen U-100 Insulin) 100 unit/mL (3 mL) Insulin Pen Discontinued 42 UNIT SUBCUT Every evening September 11, 2017 1:00am January 12, 2024 4:21pm Start: 05-14-2017 End: 09-11-2017 Basaglar KwikPen 100 UNIT/ML Subcutaneous Active Insulin Lispro (5 sources) Insulin Analog [...] scale, # 15 mL, Refills(s) 2, Pharmacy: [facility], 143, cm, 08/20/23 16:15:00 EST, Height/Length Dosing, 75.7, kg, 08/20/23 16:15:00 EST, Weight Dosing Start Date: 08/20/23 Status: Ordered lisinopril 5 mg oral tablet (20 sources) Angiotensin Converting Enzyme Inhibitor Start: 08-03-2024 End: 10-22-2024 Start: 05-14-2017 End: 07-20-2018 take 1 tablet by dayo th every twenty-four hours Lisinopril 5 MG 1 tablet Orally Once a day Active losartan potassium 25 mg ora l tablet (20 sources) Angiotensin 2 Receptor Miquel Start: 07-20-2018 End: 09-09-2023 metoprolol tartrate 25 mg or al tablet (20 sources) beta-Adrenergic Miquel Start: 05-14-2017 End: 06-23-2017 End: 09-17-2023 take 1 tablet by mouth every twelve hours metoprolol tartrate (Lopressor) 25 mg tablet 1 tablet (25 mg) every 12 hours. 0 09/17/2023 Discontinued (Therapy completed) take 1 tablet by dayo th every twelve hours Metoprolol Tartrate 25 MG Oral Tablet TAKE 1 TABLET Every twelve hours Quantity: 60 Refills: 0 Ordered: 19-Dec-2016 [employer], Veronica Active Multiple Vitamins/Minerals TABS (10 sources) Multiple Vitamin s/Minerals TABS TAKE 1 TABLET DAILY. Quantity: 0 Refills: 0 Ordered: 19-Dec-2016 DO Active nitroglycerin 0.4 mg sublingual tablet (20 sources) Nitrate Vasodilator Start: 06-23-2017 End: 09-09-2023 Start: 06-23-2017 End: 09-09-2023 Nitroglycerin (Nitrostat) 0. 4 mg Tablet, Sublingual Discontinued 0.4 MG SUBLINGUAL Q5M as needed for Chest Pain June 23, 2017 1:00am September 09, 2023 4:27pm ondansetron 4 mg oral tablet (20 sources) Serotonin-3 Receptor Antagonist Start: 03-09-2025 End: 04-04-2025 Start: 12-05-2023 End: 01-12-2024 24 hr oxybutynin chloride 15 mg extended release oral tablet (20 sources) Cholinergic Muscarinic Antagonist Start: 07-27-2024 End: 10-05-2024 Start: 01-12-2024 End: 07-27-2024 Start: 01-01-2024 End: 01-12-2024 take 1 tablet by mouth once daily Oxybutynin Chloride Discontinued 0 .ROUTE .COMPLEX January 01, 2024 8:42am January 12, 2024 4:21pm TAKE ONE TABLET BY MOUTH DAILY Start: 12-11-2023 End: 01-12-2024 Start: 12-11-2023 End: 01-01-2024 Start: 09-03-2023 End: 12-11-2023 Start: 07-03-2023 End: 11-27-2023 Start: 02-10-2023 take 1 tablet by dayo [...] Active oxyCODONE hydrochloride 5 mg oral tablet (7 sources) Opioid Agonist Start: 03-09-2025 End: 04-04-2025 pantoprazole 20 mg delayed release oral tablet (13 sources) Proton Pump Inhibitor Start: 03-09-2025 End: 04-06-2025 polyethylene glycol 3350 06413 mg powder for oral solution (7 sources) Osmotic Laxative Start: 03-09-2025 End: 04-04-2025 predniSONE 10 mg oral tablet (7 sources) Start: 03-09-2025 End: 04-04-2025 regadenoson (Lexiscan) injection 0.4 mg (2 sources) Start: 10-14-2023 End: 10-14-2023 regadenoson (Lexiscan) injection 0.4 mg sulfamethoxazole 800 mg / trimethoprim 160 mg oral tablet (20 sources) Dihydrofolate Reductase Inhibitor Antibacterial, Sulfonamide Antimicrobial Start: 10-23-2023 End: 11-27-2023 Start: 10-23-2023 End: 11-27-2023 take 1 tablet by mouth twice daily Sulfamethoxazole-Trimethoprim 800-160 mg tablet Discontinued 1 TAB PO [...] sources) Opioid Agonist Start: 03-09-2025 End: 04-04-2025 Start: 07-24-2018 End: 07-31-2018 Vitamin B Complex (17 sources) Start: 05-14-2017 [...] 13, 2017 11:00pm July 20, 2018 6:44am (2 sources) Start: 05-14-2017 End: 07-20-2018 Problems Active Problems Problem Classification Problem Date Documented Date Episodic/Chronic Abdominal pain (2 sources) Flank pain 03-05-2023 Episodic Acute and unspecified renal failure (20 sources) Acute renal failure syndrome; Translations: [Acute kidney failure, unspecified] Onset: 4 01-22-2024 Episodic Administrative/socia l admission (9 sources) Impaired mobility; Translations: [Other reduced mobility] [...] disease, unspecified; Translations: [Atherosclerotic heart disease of [place] coronary artery without angina pectoris] Onset: 8 [...] OP CDI policy. Diabetes mellitus without complication (11 sources) Steroid-induced hyperglycemia; Translations: [Hyperglycemia, unspecified] Onset: [...] arthropathies (20 sources) Gout; Translations: [Gout, unspecified] Onset: 5 02-05-2023 Chronic Heart valve disorders (20 sources) [...] current pathological fracture] 11-24-2023 Chronic Other aftercare (4 sources) Patient encounter status; Translations: [Aftercare following joint replacement surgery] 04-06-2025 Chronic Other aftercare (20 sources) Long-term current use of drug therapy; Translations: [Other senior living (current) drug therapy] Onset: 4 11-24-2023 Episodic Other aftercare (3 sources) [employer] (current) use of insulin; Translations: [group home (current) use of insulin (Multi)] Onset: 3 [...] system] 01-25-2024 Episodic Other connective tissue disease (17 sources) History of total hip arthroplasty; Translations: [...] Chronic Other nutritional; endocrine; and metabolic disorders (11 sources) Drug-induced obesity; 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] Test Name Value Interpretation Reference Range Facil it Basic Metabolic Panelon 10-0 Anion gap [Moles/Vol] 9 mmol/L Normal -15 [facility] Comment on above: Order Comment: CALL doctor [id number] tel. [phone], FAX: [phone] CALL doctor L9755 tel. [phone], FAX: [phone] Performed By: #### B MP #### [facility] [address] [place] [id number] Calcium [Mass/Vol] 9.3 mg/dL Normal 8.5-9.9 [facility] Comment on above: Order Comment: CALL doctor L9755 tel. [phone], FAX: [phone] CALL doctor L9755 tel. [phone], FAX: [phone] Performed By: #### B MP #### [facility] [address] [place] [address] Chloride [Moles/Vol] 99 mmol/L Normal 95-107 [facility] Comment on above: Order Comment: CALL doctor L9755 tel. [phone], FAX: [phone] CALL doctor L9755 tel. [phone], FAX: [phone] Performed By: #### B MP #### [facility] [address] [place] [address] CO2 [Moles/Vol] 30 mmol/L Normal 20-31 [facility] Comment on above: Order Comment: CALL doctor L9755 tel. [phone], FAX: [phone] CALL doctor L9755 tel. [phone], FAX: [phone] Performed By: #### B MP #### [facility] [address] [place] [address] Creatinine [Mass/Vol] 2.00 mg/dL Critically high 0.50-0.90 [facility] Comment on above: Order Comment: CALL doctor L9755 tel. [phone], FAX: [phone] CALL doctor L9755 tel. [phone], FAX: [phone] Performed By: #### B MP #### [facility] [address] [place] [address] GFR 24.8 Low >60 [facility] Comment on above: Order Comment: CALL doctor L9755 tel. [phone], FAX: [phone] CALL doctor L9755 tel. [phone], FAX: [phone] Result Comment: Pedi atric calculator link https://www.kidney.org/professionals/kdoqi/gfr_calculatorped Effective Apr 15, 2022 These results are not intended for use in patients <18 years of age. eGFR results are calculated without a race factor using the 2020 CKD-EPI equation. Careful clinical correlation is recommended, particularly when comparing to results calculated using previous equations. The CKD-EPI equation is less accurate in patients with extremes of muscle mass, extra-renal metabolism of creatinine, excessive creatinine ingestion, or following therapy that affects renal tubular secretion. Performed By: #### B MP #### [facility] [address] [place] [address] Glucose [Mass/Vol] 145 mg/dL Critically high 70-99 [facility] Comment on above: Order Comment: CALL doctor L9755 tel. [phone], FAX: [phone] CALL doctor L9755 tel. [phone], FAX: [phone] Performed By: #### B MP #### [facility] [address] [place] [address] Potassium [Moles/Vol] 4.6 mmol/L Normal 3.4-4.9 [facility] Comment on above: Order Comment: CALL doctor L9755 tel. [phone], FAX: [phone] CALL doctor L9755 tel. [phone], FAX: [phone] Performed By: #### B MP #### [facility] [address] [place] [address] Sodium [Moles/Vol] 138 mmol/L Normal 135-144 [facility] Comment on above: Order Comment: CALL doctor L9755 tel. [phone], FAX: [phone] CALL doctor L9755 tel. [phone], FAX: [phone] Performed By: #### B MP #### [facility] [address] [place] [address] Urea nitrogen [Mass/Vol] 35 mg/dL Critically high 8-23 [facility] Comment on above: Order Comment: CALL doctor L9755 tel. [phone], FAX: [phone] CALL doctor L9755 tel. [phone], FAX: [phone] Performed By: #### B MP #### [facility] [address] [place] [address] CBC With Platelet No Differe ntialon 04-17-2025 Erythrocyte distribution width (RBC) [Ratio] 16.7 % Critically high 11.5-14.5 [facility] Comment on above: Order Comment: CALL doctor L9755 tel. [phone], FAX: [phone] CALL doctor L9755 tel. [phone], FAX: [phone] Performed By: #### C BCND #### [facility] [address] [place] [address] Hematocrit (Bld) [Volume fraction] 35.8 % Low 37.0-47.0 [facility] Comment on above: Order Comment: CALL doctor L9755 tel. [phone], FAX: [phone] CALL doctor L9755 tel. [phone], FAX: [phone] Performed By: #### C BCND #### [facility] [address] [place] [address] Hemoglobin (Bld) [Mass/Vol] 10.4 g/dL Low 12.0-16.0 [facility] Comment on above: Order Comment: CALL doctor L9755 tel. [phone], FAX: [phone] CALL doctor L975 tel. [phone], FAX: [phone] Performed By: #### C BCND #### [facility] [address] [place] [address] MCH (RBC) [Entitic mass] 31.5 pg Critically high 27.0-31.3 [facility] Comment on above: Order Comment: CALL doctor L9755 tel. [phone], FAX: [phone] CALL doctor L975 tel. [phone], FAX: [phone] Performed By: #### C BCND #### [facility] [address] [place] [address] MCHC 29.1 % Low 33.0-37.0 [facility] Comment on above: Order Comment: CALL doctor L9755 tel. [phone], FAX: [phone] [facility] tel. [phone], FAX: [phone] Performed By: #### C BCND #### [facility] [address] [place] [address] MCV (RBC) [Entitic vol] 108.5 fL Critically high 79.4-94.8 [facility] Comment on above: Order Comment: CALL doctor L9755 tel. [phone], FAX: [phone] CALL doctor L9755 tel. [phone], FAX: [phone] Performed By: #### C BCND #### [facility] [address] [place] [address] Platelets (Bld) [#/Vol] 309 10*3/uL Normal 130-400 [facility] Comment on above: Order Comment: CALL doctor L9755 tel. [phone], FAX: [phone] CALL doctor L9755 tel. [phone], FAX: [phone] Performed By: #### C BCND #### [facility] [address] [place] [address] RBC (Bld) [#/Vol] 3.30 10*6/uL Low 4.20-5.40 [facility] Comment on above: Order Comment: CALL doctor L9755 tel. [phone], FAX: [phone] CALL doctor L9755 tel. [phone], FAX: [phone] Performed By: #### C BCND #### [facility] [address] [place] [address] WBC (Bld) [#/Vol] 7.1 10*3/uL Normal 4.8-10.8 [facility] Comment on above: Order Comment: CALL doctor L9755 tel. [phone], FAX: [phone] CALL doctor L9755 tel. [phone], FAX: [phone] Performed By: #### C BCND #### [facility] [address] [place] [address] HMHP CBC WITH PLATELET NO DI FFERENTIALon 04-17-2025 Erythrocyte distribution width (RBC) [Ratio] 16.7 % High 11.5 - 14.5 % [facility] Hematocrit (Bld) [Volume fraction] 35.8 % Low 37.0 - 47.0 % [facility] Hemoglobin (Bld) [Mass/Vol] 10.4 g/dL Low 12.0 - 16.0 g/dL [facility] Interpretation and review of laboratory results Abnormal [facility] MCH (RBC) [Entitic mass] 31.5 pg High 27.0 - 31.3 pg [facility] MCV (RBC) [Entitic vol] 108.5 fL High 79.4 - 94.8 fL [facility] MLR MCHC 29.1 % Low 33.0 - 37.0 % [facility] MLR PLATELET COUNT 309 K/uL 130 - 400 K/uL NO [facility] MLR RBC 3.3 Low [facility] WBC (Bld) [#/Vol] 7.1 10*3/uL 4.8 - 10.8 K/uL N [facility] CALL doctor L9755 tel. [phone], FAX: [phone] CALL doctor L9755 tel. [phone], FAX: [phone] [facility] proBNPon 04-17-2025 Natriuretic peptide B (Bld) [Mass/Vol] 60661 pg/mL Normal [facility] Comment on above: Order Comment: CALL doctor L9755 tel. [phone], FAX: [phone] CALL doctor L9755 tel. [phone], FAX: [phone] Result Comment: NT-p ro BNP ACUTE Interpretive Guidelines: Age Cutoff for Heart Failure Less than 50 yrs 450 pg/mL 50-75 yrs 900 pg/mL Greater than 75 yrs 1800 pg/mL NT-pro BNP NON-ACUTE Interpretive Guidelines: Age Reference Range Less than 74 yrs 0-125 pg/mL Greater than 74 yrs 0-450 pg/mL Other possible causes of an elevated NT-proBNP include: cardiac ischemia, acute coronary syndrome, COPD, pneumonia, atrial fibrillation, pulmonary emboli, pulmonary hypertension, pericarditis Reference: Melissa Barr, et al. NT-proBNP testing for diagnosis and short-term prognosis in acute destabilized HF: an international pooled analysis of 1256 patients. Heart Journal. 2006;27:330-337 Performed By: #### B NPPR #### [facility] [address] [place] [address] Basophils Auto (Bld) [#/Vol] Ordered By: Robby Light on 04-11-2025 Basophils (Bld) [#/Vol] 0.0 10 3/uL 0.0-0.1 [facility] Basophils/100 WBC Auto (Bld) Ordered By: Robby Light on 04-11-2025 Basophils/100 WBC (Bld) 0.2 % 0.2-2.0 [facility] Eosinophils/100 WBC Auto (Bl d)Ordered By: Robby Light on 04-11-2025 Eosinophils/100 WBC (Bld) 1.8 % 0.9-7.0 [facility] Erythrocyte distribution wid th Auto (RBC) [Ratio]Ordered By: Robby Light on 04-11-2025 Erythrocyte distribution width (RBC) [Ratio] 17.3 % High 11.0-15.0 [facility] Glomerular filtration rate ( GFR) estimation in non- AmericanOrdered By: Robby Light on 04-11-2025 GFR/1.73 sq M.predicted among non-blacks MDRD (S/P/Bld) [Vol rate/Area] 15 mL/min/{1.73_m2} Low >=60 mL/min/1.73m 2 [facility] Hematocrit Auto (Bld) [Volum e fraction]Ordered By: Robby Light on 04-11-2025 Hematocrit (Bld) [Volume fraction] 36.3 % 36.0-48.0 [facility] Hemoglobin [Mass/volume] in BloodOrdered By: Robby Light on 04-11-2025 Hemoglobin (Bld) [Mass/Vol] 10.7 g/dL Low 12.0-16.0 [facility] Leukocytes [#/volume] correc suzi for nucleated erythrocytes in Blood by Automated counOrdered By: Robby Light on 04-11-2025 WBC corrected for nucl RBC Auto (Bld) [#/Vol] 8.2 10 3/uL 4.0-11.0 [facility] Lymphocytes Auto (Bld) [#/Vo l]Ordered By: Robby Light on 04-11-2025 Lymphocytes (Bld) [#/Vol] 1.3 10 3/uL 1.2-3.8 [facility] Lymphocytes/100 WBC Auto (Bl d)Ordered By: Robby Light on 04-11-2025 Lymphocytes/100 WBC (Bld) 15.5 % Low 20.5-60.0 [facility] MCH Auto (RBC) [Entitic mass ]Ordered By: Robby Light on 04-11-2025 MCH (RBC) [Entitic mass] 32.0 pg 26.7-34.0 [facility] MCHC Auto (RBC) [Mass/Vol]Or dered By: Robby Light on 04-11-2025 MCHC (RBC) [Mass/Vol] 29.5 g/dL Low 29.9-35.2 [facility] MCV Auto (RBC) [Entitic vol] Ordered By: Robby Light on 04-11-2025 MCV (RBC) [Entitic vol] 108.7 fL High 81.0-99.0 [facility] Monocytes Auto (Bld) [#/Vol] Ordered By: Robby Light on 04-11-2025 Monocytes (Bld) [#/Vol] 0.8 10 3/uL 0.3-0.8 [facility] Monocytes/100 WBC Auto (Bld) Ordered By: Robby Light on 04-11-2025 Monocytes/100 WBC (Bld) 9.3 % 1.7-12.0 [facility] Neutrophils Auto (Bld) [#/Vo l]Ordered By: Robby Light on 04-11-2025 Neutrophils (Bld) [#/Vol] 6.0 10 3/uL 1.4-6.5 [facility] Neutrophils/100 WBC Auto (Bl d)Ordered By: Robby Light on 04-11-2025 Neutrophils/100 WBC (Bld) 73.0 % 43.0-75.0 [facility] No Panel InformationOrdered By: Trace Alvarez on 04-11-2025 1.4 mmol/L 0.4-2.0 [facility] 16.41 mg/dL High <=0.50 [facility] No Panel InformationOrdered By: Robby Light on 04-11-2025 134.7 pg/mL Critically high 4.0-51.3 [facility] ALREADY ORDERED [facility] NONE SEEN #/LPF NONE/RARE [facility] None Seen #/HPF None Seen [facility] LARGE #/HPF Abnormal NONE SEEN [facility] COLOR INTERFERENCE Abnormal 5.0-9.[address] [facility] CLOUDY Abnormal CLEAR [facility] DK RED Abnormal YELLOW [facility] COLOR INTERFERENCE mg/dL Abnormal NEG/TRACE [facility] NONE SEEN NONE SEEN [facility] >100 #/HPF Abnormal 0-2 [facility] 1.030 Abnormal 1.005-1.025 [facility] COLOR INTERFERENCE EU/dL Abnormal 0.2-1.0 [facility] 75-100 #/HPF Abnormal NONE SEEN [facility] 16.0 [facility] 49.0 mg/dL High 7.0-18.0 [facility] 0.2 10 3/uL 0.0-0.7 [facility] 9.0 mg/dL 8.5-10.1 [facility] 100 mmol/L 98-107 [facility] 29.1 mmol/L 21.0-32.0 [facility] 3.07 mg/dL High 0.55-1.02 [facility] 0.02 10 3/uL 0.00-0.03 [facility] 18 Low >=60 mL/min/1.73m 2 [facility] 0.2 % 0.0-0.5 [facility] 132 mg/dL High 74-106 [facility] 4.9 mmol/L 3.5-5.1 [facility] 138 mmol/L 136-145 [facility] Platelet mean volume Auto (B ld) [Entitic vol]Ordered By: Robby Light on 04-11-2025 Platelet mean volume (Bld) [Entitic vol] 9.8 fL 9.5-13.5 [facility] Platelets Auto (Bld) [#/Vol] Ordered By: Robby Light on 04-11-2025 Platelets (Bld) [#/Vol] 192 10 3/uL 150-450 [facility] RBC Auto (Bld) [#/Vol]Ordere d By: Robby Light on 04-11-2025 RBC (Bld) [#/Vol] 3.34 10 6/uL Low 4.20-5.40 [facility] Serum or plasma anion gap de terminationOrdered By: Robby Light on 04-11-2025 Anion gap [Moles/Vol] 13.8 mmol/L [facility] Urine Cultureon 04-11-2025 Bacteria identified Cx Nom (U) Normal [facility] Comment on above: Performed By: #### C UU ####[facility] [id number] [place] [address] [facility] Capillary blood glucose lei urement by glucometer (mass/volume)Ordered By: Mateo Schaeffer on 04-09-2025 Glucose [Mass/Vol] 238 mg/dL Normal [facility] Comment on above: Result Comment: [place] Glucose Reference Range is dependent on time and content of last meal. Glucose of more than 200 mg/dL in a nonstressed, ambulatory subject supports the diagnosis of Diabetes Mellitus.PERFORMED BY:[address] [place], [place] [phone] MEDICAL JULIAN PADILLA M.D. Performed By: #### G LULS ####Point of Care testing, Glucose Poct Glucometerson 0 04-09-2025 Glucose [Mass/Vol] 169 mg/dL Normal [facility] Comment on above: Result Comment: [place] Glucose Reference Range is dependent on time and content of last meal. Glucose of more than 200 mg/dL in a nonstressed, ambulatory subject supports the diagnosis of Diabetes Mellitus.PERFORMED BY:[place] [address] [place], [place] [phone] MEDICAL JULIAN PADILLA M.D. Performed By: #### G LULS ####Point of Care testing, Glucose [Mass/Vol] 192 mg/dL Normal [facility] Comment on above: Result Comment: [place] Glucose Reference Range is dependent on time and content of last meal. Glucose of more than 200 mg/dL in a nonstressed, ambulatory subject supports the diagnosis of Diabetes Mellitus.PERFORMED BY:[place] [address] [place], [place] [phone] MEDICAL JULIAN PADILLA M.D. Performed By: #### G DALLIN ####Point of Care testing, A1C with Estimated Average Arielle valera 04-08-2025 Glucose [Mass/Vol] 151 mg/dL Normal [facility] Comment on above: Result Comment: PERF ORMED BY:[place] [address] [place], [place] [phone] MEDICAL JULIAN PADILLA M.D. Performed By: #### L IPID, A1C WTH eA, HS TROP, BMP, CBC, MG ####[place] [id number] [facility] Basic Metabolic Panelon 03-15 Creatinine Clr Calc Pharmacy 25.86 Normal [facility] Comment on above: Performed By: #### L IPID, A1C WTH eA, HS TROP, BMP, CBC, MG ####[address] GFR/1.73 sq M.predicted MDRD (S/P/Bld) [Vol rate/Area] 31.652 mL/min/{1.73_m2} Normal [facility] Comment on above: Performed By: #### L IPID, A1C WTH eA, HS TROP, BMP, CBC, MG ####[address] Basophils [#/volume] in Bloo d by Automated countOrdered By: Juice Mackenzie on 04-08-2025 Basophils (Bld) [#/Vol] 0.0 10*3/uL Normal 0.0-0.2 [facility] Comment on above: Result Comment: PERF ORMED BY:[address] [place], [place] [id number] CRHISTOPHER PADILLA M.D. Performed By: #### L IPID, A1C WTH eA, HS TROP, BMP, CBC, MG ####[place] [id number] [facility] Basophils/100 leukocytes in Blood by Automated countOrdered By: Juice Mackenzie on 04-08-2025 Basophils/100 WBC (Bld) 0.7 % Normal . [facility] Comment on above: Performed By: #### L IPID, A1C WTH eA, HS TROP, BMP, CBC, MG ####[place] [id number] [place] [id number] [facility] Blood estimated average gluc ose determination by estimation from glycated hemoglobinOrdered By: Juice Mackenzie on 04-08-2025 Average glucose Estimated from glycated hemoglobin (Bld) [Mass/Vol] 151 mg/dL [facility] Calcium [Mass/volume] in Ser um or PlasmaOrdered By: Juice Mackenzie on 04-08-2025 Calcium [Mass/Vol] 8.8 mg/dL Normal 8.6-10.[address] [facility] Comment on above: Performed By: #### L IPID, A1C WTH eA, HS TROP, BMP, CBC, MG ####[place] [id number] [place] [id number] [facility] Carbon dioxide, total [Moles /volume] in Serum or PlasmaOrdered By: Juice Mackenzie on 04-08-2025 CO2 [Moles/Vol] 33.2 mmol/L High 21.0-31.0 [facility] Comment on above: Performed By: #### L IPID, A1C WTH eA, HS TROP, BMP, CBC, MG ####[place] [address] [place] [id number] [place] Chloride [Moles/volume] in S [place] or PlasmaOrdered By: Juice Mackenzie on 04-08-2025 Chloride [Moles/Vol] 101 mmol/L Normal 98-107 [facility] Comment on above: Performed By: #### L IPID, A1C WTH eA, HS TROP, BMP, CBC, MG ####[facility] [place] [id number] [place] Cholesterol [Mass/volume] in Serum or PlasmaOrdered By: Juice Mackenzie on 04-08-2025 Cholesterol [Mass/Vol] 126 mg/dL Low 140-200 [facility] Comment on above: Result Comment: Chol less than 200 mg/dl low risk Chol 201-239 mg/dl borderline risk Chol 240 mg/dl and greater high risk Performed By: #### L IPID, A1C WTH eA, HS TROP, BMP, CBC, MG ####[facility] [address] [place] [address] [facility] Cholesterol in HDL [Mass/vol ume] in Serum or PlasmaOrdered By: Juice Mackenzie on 04-08-2025 Cholesterol in HDL [Mass/Vol] 34 mg/dL Normal 23-92 [facility] Comment on above: Result Comment: HDL CHOL ATP-III CLASSIFICATION Cardiovascular Risk HDL > or equal to 60 mg/dL LOW HDL < 40 mg/dL HIGH Performed By: #### L IPID, A1C WTH eA, HS TROP, BMP, CBC, MG ####[facility] [address] [place] [address] [facility] Cholesterol in LDL Calc [Mas s/Vol]Ordered By: Juice Mackenzie on 04-08-2025 Cholesterol in LDL [Mass/Vol] 54 mg/dL 0-100 [facility] Cholesterol in VLDL Calc [Ma ss/Vol]Ordered By: Juice Mackenzie on 04-08-2025 Cholesterol in VLDL [Mass/Vol] 38 mg/dL [facility] Complete Blood Count Auto Di ffon 04-08-2025 Mean Corpuscular HGB Conc 32.0 g/dL Normal 32.0-35.0 [facility] Comment on above: Performed By: #### L IPID, A1C WTH eA, HS TROP, BMP, CBC, MG ####[facility] [id number] [place] [address] [place] NRBC% 0.2 /100{WBC} Normal 0-0.5 [facility] Comment on above: Performed By: #### L IPID, A1C WTH eA, HS TROP, BMP, CBC, MG ####[facility] [address] [place] [address] [facility] White Blood Count 7.1 [CFU]/mL Normal 3.8-11.6 [facility] Comment on above: Performed By: #### L IPID, A1C WTH eA, HS TROP, BMP, CBC, MG ####[address] Creatinine [Mass/volume] in Serum or PlasmaOrdered By: Juice Mackenzie on 04-08-2025 Creatinine [Mass/Vol] 1.64 mg/dL High 0.60-1.20 [facility] Comment on above: Performed By: #### L IPID, A1C WTH eA, HS TROP, BMP, CBC, MG ####[place] [address] [place] [id number] [facility] ECH echo transthoracicon ECH echo transthoracic Normal [facility] Eosinophils [#/volume] in Bl ood by Automated countOrdered By: Juice Mackenzie on 04-08-2025 Eosinophils (Bld) [#/Vol] 0.2 10*3/uL Normal 0.0-0.45 [facility] Comment on above: Performed By: #### L IPID, A1C WTH eA, HS TROP, BMP, CBC, MG ####[address] Eosinophils/100 leukocytes i n Blood by Automated countOrdered By: Juiec Mackenzie on 04-08-2025 Eosinophils/100 WBC (Bld) 2.6 % Normal . [facility] Comment on above: Performed By: #### L IPID, A1C WTH eA, HS TROP, BMP, CBC, MG ####[place] [id number] [facility] Erythrocyte distribution wid th [Ratio] by Automated countOrdered By: Juice Mackenzie on 04-08-2025 Erythrocyte distribution width (RBC) [Ratio] 18.3 % High 11.9-15.3 [facility] Comment on above: Performed By: #### L IPID, A1C WTH eA, HS TROP, BMP, CBC, MG ####[place] [id number] [facility] Erythrocytes [#/volume] in B lood by Automated countOrdered By: Juice Mackenzie on 04-08-2025 RBC (Bld) [#/Vol] 2.99 10*6/uL Low 3.60-5.00 [facility] Comment on above: Performed By: #### L IPID, A1C WTH eA, HS TROP, BMP, CBC, MG ####[facility] [address] [place] [address] [facility] Glomerular filtration rate [ Volume Rate/Area] in Serum, Plasma or Blood by CreatinineOrdered By: Juice Mackenzie on 04-08-2025 Glomerular filtration rate [Volume Rate/Area] in Serum, Plasma or Blood by Creatinine 31.652 mL/Min [facility] Glucose Poct Glucometerson 0 04-08-2025 Glucose [Mass/Vol] 213 mg/dL Normal [facility] Comment on above: Result Comment: [facility] Glucose Reference Range is dependent on time and content of last meal. Glucose of more than 200 mg/dL in a nonstressed, ambulatory subject supports the diagnosis of Diabetes Mellitus.PERFORMED BY:[address] [place], [place] [id number] MEDICAL JULIAN PADILLA M.D. Performed By: #### G LULS ####Point of Care testing, Glucose [Mass/Vol] 129 mg/dL Normal [facility] Comment on above: Result Comment: [facility] Glucose Reference Range is dependent on time and content of last meal. Glucose of more than 200 mg/dL in a nonstressed, ambulatory subject supports the diagnosis of Diabetes Mellitus.PERFORMED BY:[address] [place], [place] [phone] CHRISTOPHER PADILLA M.D. Performed By: #### G LULS ####Point of Care testing, Glucose [Mass/Vol] 305 mg/dL Normal [facility] Comment on above: Result Comment: [facility] Glucose Reference Range is dependent on time and content of last meal. Glucose of more than 200 mg/dL in a nonstressed, ambulatory subject supports the diagnosis of Diabetes Mellitus.PERFORMED BY:[address] [place], [place] [phone] CHRISTOPHER PADILLA M.D. Performed By: #### G LULS ####Point of Care testing, Glucose [Mass/Vol] 163 mg/dL Normal [facility] Comment on above: Result Comment: [place] [facility] Glucose Reference Range is dependent on time and content of last meal. Glucose of more than 200 mg/dL in a nonstressed, ambulatory subject supports the diagnosis of Diabetes Mellitus.PERFORMED BY:[address] [place], [place] [phone] MEDICAL JULIAN PADILLA M.D. Performed By: #### G LULS ####Point of Care testing, Glucose [Mass/Vol] 109 mg/dL Normal [facility] Comment on above: Result Comment: [place] [facility] Glucose Reference Range is dependent on time and content of last meal. Glucose of more than 200 mg/dL in a nonstressed, ambulatory subject supports the diagnosis of Diabetes Mellitus.PERFORMED BY:[address] [place], [place] [phone] MEDICAL JULIAN PADILLA M.D. Performed By: #### G LULS ####Point of Care testing, Glucose [Mass/volume] in Ser um or PlasmaOrdered By: Juice Mackenzie on 04-08-2025 Glucose [Mass/Vol] 144 mg/dL High 70-[address] [facility] Comment on above: Result Comment: [place] Glucose Reference Range is dependent on time and content of last meal. Glucose of more than 200 mg/dL in a nonstressed, ambulatory subject supports the diagnosis of Diabetes Mellitus. ADA recommended reference range Performed By: #### L IPID, A1C WTH eA, HS TROP, BMP, CBC, MG ####[place] [address] [place] [address] [facility] Hematocrit [Volume Fraction] of Blood by Automated countOrdered By: Juice Mackenzie on 04-08-2025 Hematocrit (Bld) [Volume fraction] 30.9 % Low 34.0-46.4 [facility] Comment on above: Performed By: #### L IPID, A1C WTH eA, HS TROP, BMP, CBC, MG ####[facility] [address] Hemoglobin A1c/Hemoglobin.to nathen in BloodOrdered By: Juice Mackenzie on 04-08-2025 HbA1c (Bld) [Mass fraction] 6.9 % High 4.3-5.6 [facility] Comment on above: Result Comment: Incr eased risk for diabetes: 5.7 - 6.4 diabetes: >6.4 glycemic control for adults with diabetes: <7.0 Performed By: #### L IPID, A1C WTH eA, HS TROP, BMP, CBC, MG ####[address] Hemoglobin [Mass/volume] in BloodOrdered By: Juice Mackenzie on 04-08-2025 Hemoglobin (Bld) [Mass/Vol] 9.9 g/dL Low 11.8-15.4 [facility] Comment on above: Performed By: #### L IPID, A1C WTH eA, HS TROP, BMP, CBC, MG ####[address] Leukocytes [#/volume] correc suzi for nucleated erythrocytes in Blood by Automated counOrdered By: Juice Mackenzie on 04-08-2025 WBC corrected for nucl RBC Auto (Bld) [#/Vol] 7.1 10*3/uL 3.8-11.6 [facility] Leukocytes [#/volume] in Blo od by Automated countOrdered By: Juice Mackenzie on 04-08-2025 WBC (Bld) [#/Vol] 7.1 10*3/uL Normal 3.8-11.[address] [facility] Comment on above: Performed By: #### L IPID, A1C WTH eA, HS TROP, BMP, CBC, MG ####[place] [id number] Lipid Panelon 04-08-2025 LDL Cholesterol,Calcula suzi 54 mg/dL Normal 0-100 [facility] Comment on above: Result Comment: LDL ATP III CLASSIFICATION LDL less than 100 mg/dL Optimal LDL 100-129 mg/dL Near or above optimal LDL 130-159 mg/dL Borderline high LDL 160-189 mg/dL High LDL greater than 189 mg/dL Very high Performed By: #### L IPID, A1C WTH eA, HS TROP, BMP, CBC, MG ####[place] [address] Triglyceride w/Reflex 190 mg/dL High 0-149 [facility] Comment on above: Result Comment: TRIG ATP III CLASSIFICATION TRIG less than 150 mg/dL Normal TRIG 150-199 mg/dL Borderline high TRIG 200-500 mg/dL High TRIG greater than 500 mg/dL Very high Standard traceable to the Center for Disease Conrtrol and Prevention (CDC) test method. Performed By: #### L IPID, A1C WTH eA, HS TROP, BMP, CBC, MG ####[address] VLDL CHOLESTEROL 38 mg/dL Normal [facility] Comment on above: Performed By: #### L IPID, A1C WTH eA, HS TROP, BMP, CBC, MG ####[address] Lymphocytes [#/volume] in Bl ood by Automated countOrdered By: Juice Mackenzie on 04-08-2025 Lymphocytes (Bld) [#/Vol] 1.2 10*3/uL Normal 1.00-4.8 [facility] Comment on above: Performed By: #### L IPID, A1C WTH eA, HS TROP, BMP, CBC, MG ####[address] Lymphocytes/100 leukocytes i n Blood by Automated countOrdered By: Juice Mackenzie on 04-08-2025 Lymphocytes/100 WBC (Bld) 17.6 % Normal . [facility] Comment on above: Performed By: #### L IPID, A1C WTH eA, HS TROP, BMP, CBC, MG ####[address] MCH [Entitic mass] by Automa suzi countOrdered By: Juice Mackenzie on 04-08-2025 MCH (RBC) [Entitic mass] 33.1 pg Normal 24.7-34.3 [facility] Comment on above: Performed By: #### L IPID, A1C WTH eA, HS TROP, BMP, CBC, MG ####[facility] MCHC Auto (RBC) [Mass/Vol]Or dered By: Juice Mackenzie on 04-08-2025 MCHC (RBC) [Mass/Vol] 32.0 g/dL 32.0-35.0 [facility] MCV [Entitic volume] by Auto mated countOrdered By: Juice Mackenzie on 04-08-2025 MCV (RBC) [Entitic vol] 103.5 fL High 80-100 [facility] Comment on above: Performed By: #### L IPID, A1C WTH eA, HS TROP, BMP, CBC, MG ####[place] [id number] Magnesium [Mass/volume] in S [place] or PlasmaOrdered By: Juice Mackenzie on 04-08-2025 Magnesium [Mass/Vol] 2.0 mg/dL Normal 1.9-2.7 [facility] Comment on above: Performed By: #### L IPID, A1C WTH eA, HS TROP, BMP, CBC, MG ####[place] [address] Monocytes [#/volume] in Bloo d by Automated countOrdered By: Juice Mackenzie on 04-08-2025 Monocytes (Bld) [#/Vol] 0.7 10*3/uL Normal 0.0-0.8 [facility] Comment on above: Performed By: #### L IPID, A1C WTH eA, HS TROP, BMP, CBC, MG ####[facility] [place] [id number] [place] Monocytes/100 leukocytes in Blood by Automated countOrdered By: Juice Mackenzie on 04-08-2025 Monocytes/100 WBC (Bld) 9.5 % Normal . [facility] Comment on above: Performed By: #### L IPID, A1C WTH eA, HS TROP, BMP, CBC, MG ####[facility] [place] [id number] [facility] Neutrophils [#/volume] in Bl ood by Automated countOrdered By: Juice Mackenzie on 04-08-2025 Neutrophils (Bld) [#/Vol] 4.9 10*3/uL Normal 1.8-7.7 [facility] Comment on above: Performed By: #### L IPID, A1C WTH eA, HS TROP, BMP, CBC, MG ####[facility] Neutrophils/100 leukocytes i n Blood by Automated countOrdered By: Juice Mackenzie on 04-08-2025 Neutrophils/100 WBC (Bld) 69.6 % Normal . [facility] Comment on above: Performed By: #### L IPID, A1C WTH eA, HS TROP, BMP, CBC, MG ####[place] [id number] No Panel InformationOrdered By: Juice Mackenzie on 04-08-2025 25.86 [facility] Nucleated erythrocytes [Pres ence] in Blood by Automated countOrdered By: Juice Mackenzie on 04-08-2025 Nucleated RBC Auto Ql (Bld) 0.2 /100{WBC} 0-0.5 [facility] Platelet mean volume [Entiti c volume] in Blood by Automated countOrdered By: Juice Mackenzie on 04-08-2025 Platelet mean volume (Bld) [Entitic vol] 8.7 fL Normal 6.3-10.7 [facility] Comment on above: Performed By: #### L IPID, A1C WTH eA, HS TROP, BMP, CBC, MG ####[facility] [place] [id number] [place] Platelets [#/volume] in Bloo d by Automated countOrdered By: Juice Mackenzie on 04-08-2025 Platelets (Bld) [#/Vol] 214 10*3/uL Normal 150-450 [facility] Comment on above: Performed By: #### L IPID, A1C WTH eA, HS TROP, BMP, CBC, MG ####[facility] [place] [address] [facility] Potassium [Moles/volume] in Serum or PlasmaOrdered By: Juice Mackenzie on 04-08-2025 Potassium [Moles/Vol] 3.9 mmol/L Normal 3.5-5.1 [facility] Comment on above: Performed By: #### L IPID, A1C WTH eA, HS TROP, BMP, CBC, MG ####[place] [address] [place] [id number] [facility] Serum or plasma anion gap de terminationOrdered By: Juice Mackenzie on 04-08-2025 Anion gap [Moles/Vol] 8.7 mmol/L Normal 6.0-15.0 [facility] Comment on above: Performed By: #### L IPID, A1C WTH eA, HS TROP, BMP, CBC, MG ####[place] [address] [place] [id number] [facility] Serum or plasma total choles terol/high density lipoprotein (HDL) cholesterol mass ratOrdered By: Juice Mackenzie on 04-08-2025 Cholesterol.total/C holesterol in HDL [Mass ratio] 3.7 {ratio} Normal <5.0 [facility] Comment on above: Result Comment: PERF ORMED BY:[address] [place], [place] [id number] MEDICAL JULIAN PADILLA M.D. Performed By: #### L IPID, A1C WTH eA, HS TROP, BMP, CBC, MG ####[place] [address] [place] [id number] [facility] Sodium [Moles/volume] in Ser um or PlasmaOrdered By: Juice Mackenzie on 04-08-2025 Sodium [Moles/Vol] 139 mmol/L Normal 136-[address] [facility] Comment on above: Performed By: #### L IPID, A1C WTH eA, HS TROP, BMP, CBC, MG ####[facility] [place] [id number] [facility] Triglyceride [Mass/volume] i n Serum or PlasmaOrdered By: Juice Mackenzie on 04-08-2025 Triglyceride [Mass/Vol] 190 mg/dL High 0-149 [facility] Troponin I High Sensitivityo n 04-08-2025 Troponin I High Sensitivity 48 High 0-15 [facility] Comment on above: Result Comment: The Troponin units of report have been changed to meet the Chest Pain Accreditation requirement, element EC5.M1l2. Troponin units are changed from pg/ml to ng/L. Also, the decimal is removed and results are in whole numbers.PERFORMED BY:[address] [place], [place] [phone] MEDICAL DIRECTORALINA PADILLA M.D. Performed By: #### L IPID, A1C WTH eA, HS TROP, BMP, CBC, MG ####[address] [address] [facility] Troponin I High Sensitivity 61 Off scale high 0-15 [facility] Comment on above: Result Comment: Crit ical Result : Called to and read back by: LI LAWRENCE at: 04/08/2025 01:19:37 by:[id number] The Troponin units of report have been changed to meet the Chest Pain Accreditation requirement, element EC5.M1l2. Troponin units are changed from pg/ml to ng/L. Also, the decimal is removed and results are in whole numbers.PERFORMED BY:[address] [place], [place] [phone] MEDICAL JULIAN PADILLA M.D. Performed By: #### H S TROP ####[address] [address] [facility] Troponin I.cardiac [Mass/vol ume] in Serum or Plasma by Detection limit <= 0.01 ng/mLOrdered By: Juice Mackenzie on 04-08-2025 Troponin I.cardiac DL <= 0.01 ng/mL [Mass/Vol] 48 ng/L High 0-15 [facility] Urea nitrogen [Mass/volume] in Serum or PlasmaOrdered By: Juice Mackenzie on 04-08-2025 Urea nitrogen [Mass/Vol] 30 mg/dL High 7-25 [facility] Comment on above: Performed By: #### L IPID, A1C WTH eA, HS TROP, BMP, CBC, MG ####[facility] [id number] [place] [address] [facility] Basophils Auto (Bld) [#/Vol] Ordered By: Chao Chapman on 04-07-2025 Basophils (Bld) [#/Vol] 0.0 10 3/uL 0.0-0.1 [facility] Basophils/100 WBC Auto (Bld) Ordered By: Chao Chapman on 04-07-2025 Basophils/100 WBC (Bld) 0.2 % 0.2-2.0 [facility] Eosinophils/100 WBC Auto (Bl d)Ordered By: Chao Chapman on 04-07-2025 Eosinophils/100 WBC (Bld) 1.3 % 0.9-7.0 [facility] Erythrocyte distribution wid th Auto (RBC) [Ratio]Ordered By: Chao Chapman on 04-07-2025 Erythrocyte distribution width (RBC) [Ratio] 17.3 % High 11.0-15.0 [facility] Glomerular filtration rate ( GFR) estimation in non- AmericanOrdered By: Gary Lizama on 04-07-2025 GFR/1.73 sq M.predicted among non-blacks MDRD (S/P/Bld) [Vol rate/Area] 26 mL/min/{1.73_m2} Low >=60 mL/min/1.73m 2 [facility] Hematocrit Auto (Bld) [Volum e fraction]Ordered By: Chao Chapman on 04-07-2025 Hematocrit (Bld) [Volume fraction] 33.8 % Low 36.0-48.0 [facility] Hemoglobin [Mass/volume] in BloodOrdered By: Chao Chapman on 04-07-2025 Hemoglobin (Bld) [Mass/Vol] 10.0 g/dL Low 12.0-16.0 [facility] Leukocytes [#/volume] correc suzi for nucleated erythrocytes in Blood by Automated counOrdered By: Chao Chapman on 04-07-2025 WBC corrected for nucl RBC Auto (Bld) [#/Vol] 9.2 10 3/uL 4.0-11.0 [facility] Lymphocytes Auto (Bld) [#/Vo l]Ordered By: Chao Chapman on 04-07-2025 Lymphocytes (Bld) [#/Vol] 1.2 10 3/uL 1.2-3.8 [facility] Lymphocytes/100 WBC Auto (Bl d)Ordered By: Chao Chapman on 04-07-2025 Lymphocytes/100 WBC (Bld) 13.4 % Low 20.5-60.0 [facility] MCH Auto (RBC) [Entitic mass ]Ordered By: Chao Chapman on 04-07-2025 MCH (RBC) [Entitic mass] 32.3 pg 26.7-34.0 [facility] MCHC Auto (RBC) [Mass/Vol]Or dered By: Chao Chapman on 04-07-2025 MCHC (RBC) [Mass/Vol] 29.6 g/dL Low 29.9-35.2 [facility] MCV Auto (RBC) [Entitic vol] Ordered By: Chao Chapman on 04-07-2025 MCV (RBC) [Entitic vol] 109.0 fL High 81.0-99.0 [facility] Monocytes Auto (Bld) [#/Vol] Ordered By: Chao Chapman on 04-07-2025 Monocytes (Bld) [#/Vol] 0.6 10 3/uL 0.3-0.8 [facility] Monocytes/100 WBC Auto (Bld) Ordered By: Chao Chapman on 04-07-2025 Monocytes/100 WBC (Bld) 6.0 % 1.7-12.0 [facility] Neutrophils Auto (Bld) [#/Vo l]Ordered By: Chao Chapman on 04-07-2025 Neutrophils (Bld) [#/Vol] 7.2 10 3/uL High 1.4-6.5 [facility] Neutrophils/100 WBC Auto (Bl d)Ordered By: Chao Chapman on 04-07-2025 Neutrophils/100 WBC (Bld) 78.6 % High 43.0-75.0 [facility] No Panel InformationOrdered By: Gary Lizama on 04-07-2025 66.6 pg/mL Critically high 4.0-51.3 [facility] 6616.0 pg/mL Critically high <=1800.0 [facility] 18.3 [facility] 34.0 mg/dL High 7.0-18.0 [facility] 8.9 mg/dL 8.5-10.1 [facility] 101 mmol/L 98-107 [facility] 30.3 mmol/L 21.0-32.0 [facility] 1.86 mg/dL High 0.55-1.02 [facility] 32 Low >=60 mL/min/1.73m 2 [facility] 211 mg/dL High 74-106 [facility] 4.7 mmol/L 3.5-5.1 [facility] 136 mmol/L 136-145 [facility] No Panel InformationOrdered By: Chao Chapman on 04-07-2025 0.1 10 3/uL 0.0-0.7 [facility] 0.05 10 3/uL High 0.00-0.03 [facility] 0.5 % 0.0-0.5 [facility] Platelet mean volume Auto (B ld) [Entitic vol]Ordered By: Chao Chapman on 04-07-2025 Platelet mean volume (Bld) [Entitic vol] 10.9 fL 9.5-13.5 [facility] Platelets Auto (Bld) [#/Vol] Ordered By: Chao Chapman on 04-07-2025 Platelets (Bld) [#/Vol] 225 10 3/uL 150-450 [facility] RBC Auto (Bld) [#/Vol]Ordere d By: Chao Chapman on 04-07-2025 RBC (Bld) [#/Vol] 3.10 10 6/uL Low 4.20-5.40 [facility] Serum or plasma anion gap de terminationOrdered By: Gary Lizama on 04-07-2025 Anion gap [Moles/Vol] 9.4 mmol/L [facility] Glucose Poct Glucometerson 0 04-04-2025 Glucose [Mass/Vol] 155 mg/dL Normal [facility] Comment on above: Result Comment: [place] [facility] Glucose Reference Range is dependent on time and content of last meal. Glucose of more than 200 mg/dL in a nonstressed, ambulatory subject supports the diagnosis of Diabetes Mellitus.PERFORMED BY:[address] [place], [place] [id number] MEDICAL JULIAN PADILLA M.D. Performed By: #### G LULS ####Point of Care testing, Glucose [Mass/Vol] 166 mg/dL Normal [facility] Comment on above: Result Comment: [place] [facility] Glucose Reference Range is dependent on time and content of last meal. Glucose of more than 200 mg/dL in a nonstressed, ambulatory subject supports the diagnosis of Diabetes Mellitus.PERFORMED BY:[address] [place], [place] [id number] CHRISTOPHER PADILLA M.D. Performed By: #### G LULS ####Point of Care testing, Glucose Poct Glucometerson 0 04-03-2025 Glucose [Mass/Vol] 141 mg/dL Normal [facility] Comment on above: Result Comment: [place] Glucose Reference Range is dependent on time and content of last meal. Glucose of more than 200 mg/dL in a nonstressed, ambulatory subject supports the diagnosis of Diabetes Mellitus.PERFORMED BY:[address] [place], [place] [id number] CHRISTOPHER PADILLA M.D. Performed By: #### G LULS ####Point of Care testing, Glucose [Mass/Vol] 187 mg/dL Normal [facility] [facility] Comment on above: Result Comment: [place] Glucose Reference Range is dependent on time and content of last meal. Glucose of more than 200 mg/dL in a nonstressed, ambulatory subject supports the diagnosis of Diabetes Mellitus.PERFORMED BY:[address] [place], [place] [phone] CHRISTOPHER PADILLA M.D. Performed By: #### G LULS ####Point of Care testing, Commemt1 Glu2: Cleaned Meter Normal [facility] Comment on above: Result Comment: PERF ORMED BY:[place] [address] [place], [place] [phone] MEDICAL JULIAN PADILLA M.D. Performed By: #### G LULS ####Point of Care testing, Glucose [Mass/Vol] 332 mg/dL Normal [facility] Comment on above: Result Comment: [place] om Glucose Reference Range is dependent on time and content of last meal. Glucose of more than 200 mg/dL in a nonstressed, ambulatory subject supports the diagnosis of Diabetes Mellitus. Performed By: #### G LULS ####Point of Care testing, Commemt1 Glu2: Cleaned Meter Normal [facility] Comment on above: Result Comment: PERF ORMED BY:[address] [place], [place] [phone] MEDICAL JULIAN PADILLA M.D. Performed By: #### G LULS ####Point of Care testing, Glucose [Mass/Vol] 191 mg/dL Normal [facility] Comment on above: Result Comment: [place] om Glucose Reference Range is dependent on time and content of last meal. Glucose of more than 200 mg/dL in a nonstressed, ambulatory subject supports the diagnosis of Diabetes Mellitus. Performed By: #### G LULS ####Point of Care testing, Commemt1 Glu2: Cleaned Meter Normal [facility] Comment on above: Result Comment: PERF ORMED BY:[address] [place], [place] [phone] MEDICAL JULIAN PADILLA M.D. Performed By: #### G LULS ####Point of Care testing, Glucose [Mass/Vol] 81 mg/dL Normal [facility] Comment on above: Result Comment: [place] om Glucose Reference Range is dependent on time and content of last meal. Glucose of more than 200 mg/dL in a nonstressed, ambulatory subject supports the diagnosis of Diabetes Mellitus. Performed By: #### G LULS ####Point of Care testing, Glucose [Mass/Vol] 67 mg/dL Normal [facility] Comment on above: Result Comment: [place] om Glucose Reference Range is dependent on time and content of last meal. Glucose of more than 200 mg/dL in a nonstressed, ambulatory subject supports the diagnosis of Diabetes Mellitus.PERFORMED BY:[address] [place], [place] [phone] MEDICAL JULIAN PADILLA M.D. Performed By: #### G LULS ####Point of Care testing, Commemt1 Glu2: Cleaned Meter Normal [facility] Comment on above: Result Comment: PERF ORMED BY:[address] [place], [place] [phone] MEDICAL JULIAN PADILLA M.D. Performed By: #### G LULS ####Point of Care testing, Glucose [Mass/Vol] 61 mg/dL Normal [facility] Comment on above: Result Comment: [place] om Glucose Reference Range is dependent on time and content of last meal. Glucose of more than 200 mg/dL in a nonstressed, ambulatory subject supports the diagnosis of Diabetes Mellitus. Performed By: #### G LULS ####Point of Care testing, Glucose Poct Glucometerson 0 04-02-2025 Glucose [Mass/Vol] 105 mg/dL Normal [facility] Comment on above: Result Comment: [place] om Glucose Reference Range is dependent on time and content of last meal. Glucose of more than 200 mg/dL in a nonstressed, ambulatory subject supports the diagnosis of Diabetes Mellitus.PERFORMED BY:[place] [place], [place] [phone] MEDICAL JULIAN PADILLA M.D. Performed By: #### G LULS ####Point of Care testing, Glucose [Mass/Vol] 175 mg/dL Normal [facility] Comment on above: Result Comment: [place] om Glucose Reference Range is dependent on time and content of last meal. Glucose of more than 200 mg/dL in a nonstressed, ambulatory subject supports the diagnosis of Diabetes Mellitus.PERFORMED BY:[address] [place], [place] [phone] MEDICAL JULIAN PADILLA M.D. Performed By: #### G LULS ####Point of Care testing, Glucose [Mass/Vol] 178 mg/dL Normal [facility] Comment on above: Result Comment: [place] om Glucose Reference Range is dependent on time and content of last meal. Glucose of more than 200 mg/dL in a nonstressed, ambulatory subject supports the diagnosis of Diabetes Mellitus.PERFORMED BY:[address] [place], [place] [phone] MEDICAL JULIAN PADILLA M.D. Performed By: #### G LULS ####Point of Care testing, Glucose [Mass/Vol] 146 mg/dL Normal [facility] Comment on above: Result Comment: [place] om Glucose Reference Range is dependent on time and content of last meal. Glucose of more than 200 mg/dL in a nonstressed, ambulatory subject supports the diagnosis of Diabetes Mellitus.PERFORMED BY:[address] [place], [place] [phone] MEDICAL JULIAN PADILLA M.D. Performed By: #### G LULS ####Point of Care testing, Commemt1 Glu2: Cleaned Meter Normal [facility] Comment on above: Result Comment: PERF ORMED BY:[address] [place], [place] [phone] MEDICAL JULIAN PADILLA M.D. Performed By: #### G LULS ####Point of Care testing, Glucose [Mass/Vol] 74 mg/dL Normal [facility] Comment on above: Result Comment: [place] om Glucose Reference Range is dependent on time and content of last meal. Glucose of more than 200 mg/dL in a nonstressed, ambulatory subject supports the diagnosis of Diabetes Mellitus. Performed By: #### G LULS ####Point of Care testing, Commemt1 Glu2: Cleaned Meter Normal [facility] Comment on above: Result Comment: PERF ORMED BY:[place] [address] [place], [place] [phone] MEDICAL DIRECTORALINA PADILLA M.D. Performed By: #### G LULS ####Point of Care testing, Glucose [Mass/Vol] 94 mg/dL Normal [facility] Comment on above: Result Comment: [place] om Glucose Reference Range is dependent on time and content of last meal. Glucose of more than 200 mg/dL in a nonstressed, ambulatory subject supports the diagnosis of Diabetes Mellitus. Performed By: #### G LULS ####Point of Care testing, Commemt1 Glu2: Cleaned Meter Normal [facility] Comment on above: Result Comment: PERF ORMED BY:[place] [address] [place], [place] [phone] MEDICAL JULIAN PADILLA M.D. Performed By: #### G LULS ####Point of Care testing, Glucose [Mass/Vol] 75 mg/dL Normal [facility] Comment on above: Result Comment: [place] om Glucose Reference Range is dependent on time and content of last meal. Glucose of more than 200 mg/dL in a nonstressed, ambulatory subject supports the diagnosis of Diabetes Mellitus. Performed By: #### G LULS ####Point of Care testing, Commemt1 Glu2: Cleaned Meter Normal [facility] Comment on above: Result Comment: PERF ORMED BY:[address] [place], [place] [phone] MEDICAL JULIAN PADILLA M.D. Performed By: #### G LULS ####Point of Care testing, Glucose [Mass/Vol] 62 mg/dL Normal [facility] Comment on above: Result Comment: [place] om Glucose Reference Range is dependent on time and content of last meal. Glucose of more than 200 mg/dL in a nonstressed, ambulatory subject supports the diagnosis of Diabetes Mellitus. Performed By: #### G LULS ####Point of Care testing, Basic Metabolic Panelon 03-14 Anion gap [Moles/Vol] 8.9 mmol/L Normal 6.0-15.0 [facility] Comment on above: Performed By: #### B MP ####[address] [address] [facility] Calcium [Mass/Vol] 8.6 mg/dL Normal 8.6-10.3 [facility] Comment on above: Performed By: #### B MP ####[place] [id number] [facility] Chloride [Moles/Vol] 103 mmol/L Normal 98-107 [facility] Comment on above: Performed By: #### B MP ####[place] [id number] [facility] CO2 [Moles/Vol] 29.8 mmol/L Normal 21.0-31.0 [facility] Comment on above: Performed By: #### B MP ####[place] [id number] [facility] Creatinine [Mass/Vol] 1.69 mg/dL High 0.60-1.20 [facility] Comment on above: Performed By: #### B MP ####[place] [id number] [facility] Creatinine Clr Calc Pharmacy 25.05 Normal [facility] Comment on above: Result Comment: PERF ORMED BY:[address] [place], [place] [phone] MEDICAL JULIAN PADILLA M.D. Performed By: #### B MP ####[place] [id number] [facility] GFR/1.73 sq M.predicted MDRD (S/P/Bld) [Vol rate/Area] 30.531 mL/min/{1.73_m2} Normal [facility] Comment on above: Performed By: #### B MP ####[place] [id number] [facility] Glucose [Mass/Vol] 120 mg/dL High 70-100 [facility] Comment on above: Result Comment: [place] Glucose Reference Range is dependent on time and content of last meal. Glucose of more than 200 mg/dL in a nonstressed, ambulatory subject supports the diagnosis of Diabetes Mellitus. ADA recommended reference range Performed By: #### B MP ####[place] [id number] [facility] Potassium [Moles/Vol] 4.7 mmol/L Normal 3.5-5.1 [facility] Comment on above: Performed By: #### B MP ####[place] [id number] [facility] Sodium [Moles/Vol] 137 mmol/L Normal 136-145 [facility] Comment on above: Performed By: #### B MP ####[place] [id number] [facility] Urea nitrogen [Mass/Vol] 52 mg/dL High 7-25 [facility] Comment on above: Performed By: #### B MP ####[place] [id number] [facility] Glucose Poct Glucometerson 0 04-01-2025 Commemt1 Glu2: Cleaned Meter Normal [facility] Comment on above: Result Comment: PERF ORMED BY:[address] [place], [place] [phone] MEDICAL JULIAN PADILLA M.D. Performed By: #### G LULS ####Point of Care testing, Glucose [Mass/Vol] 161 mg/dL Normal [facility] Comment on above: Result Comment: [place] Glucose Reference Range is dependent on time and content of last meal. Glucose of more than 200 mg/dL in a nonstressed, ambulatory subject supports the diagnosis of Diabetes Mellitus. Performed By: #### G LULS ####Point of Care testing, Glucose [Mass/Vol] 108 mg/dL Normal [facility] Comment on above: Result Comment: [place] Glucose Reference Range is dependent on time and content of last meal. Glucose of more than 200 mg/dL in a nonstressed, ambulatory subject supports the diagnosis of Diabetes Mellitus.PERFORMED BY:[address] [place], [place] [phone] MEDICAL JULIAN PADILLA M.D. Performed By: #### G LULS ####Point of Care testing, Glucose [Mass/Vol] 62 mg/dL Normal [facility] Comment on above: Result Comment: [place] om Glucose Reference Range is dependent on time and content of last meal. Glucose of more than 200 mg/dL in a nonstressed, ambulatory subject supports the diagnosis of Diabetes Mellitus.PERFORMED BY:[address] [place], [place] [phone] MEDICAL JULIAN PADILLA M.D. Performed By: #### G LULS ####Point of Care testing, Commemt1 Normal [facility] Comment on above: Result Comment: Glu2 : FOLLOW HYPOGLYCEMICPERFORMED BY:[address] [place], [place] [phone] MEDICAL JULIAN PADILLA M.D. Performed By: #### G LULS ####Point of Care testing, Glucose [Mass/Vol] 59 mg/dL Off scale low [facility] Comment on above: Result Comment: [place] Glucose Reference Range is dependent on time and content of last meal. Glucose of more than 200 mg/dL in a nonstressed, ambulatory subject supports the diagnosis of Diabetes Mellitus. Performed By: #### G LULS ####Point of Care testing, Commemt1 Glu2: Cleaned Meter Normal [facility] Comment on above: Result Comment: PERF ORMED BY:[address] [place], [place] [phone] MEDICAL JULIAN PADILLA M.D. Performed By: #### G LULS ####Point of Care testing, Glucose [Mass/Vol] 97 mg/dL Normal [facility] Comment on above: Result Comment: [place] om Glucose Reference Range is dependent on time and content of last meal. Glucose of more than 200 mg/dL in a nonstressed, ambulatory subject supports the diagnosis of Diabetes Mellitus. Performed By: #### G LULS ####Point of Care testing, Commemt1 Glu2: Cleaned Meter Normal [facility] Comment on above: Result Comment: PERF ORMED BY:[place] [address] [place], [place] [phone] MEDICAL JULIAN PADILLA M.D. Performed By: #### G LULS ####Point of Care testing, Glucose [Mass/Vol] 128 mg/dL Normal [facility] Comment on above: Result Comment: [place] om Glucose Reference Range is dependent on time and content of last meal. Glucose of more than 200 mg/dL in a nonstressed, ambulatory subject supports the diagnosis of Diabetes Mellitus. Performed By: #### G LULS ####Point of Care testing, Glucose [Mass/Vol] 121 mg/dL Normal [facility] Comment on above: Result Comment: [place] om Glucose Reference Range is dependent on time and content of last meal. Glucose of more than 200 mg/dL in a nonstressed, ambulatory subject supports the diagnosis of Diabetes Mellitus.PERFORMED BY:[address] [place], [place] [phone] MEDICAL JULIAN PADILLA M.D. Performed By: #### G LULS ####Point of Care testing, Glucose [Mass/Vol] 79 mg/dL Normal [facility] Comment on above: Result Comment: [place] om Glucose Reference Range is dependent on time and content of last meal. Glucose of more than 200 mg/dL in a nonstressed, ambulatory subject supports the diagnosis of Diabetes Mellitus.PERFORMED BY:[address] [place], [place] [phone] MEDICAL JULIAN PADILLA M.D. Performed By: #### G LULS ####Point of Care testing, Glucose [Mass/Vol] 64 mg/dL Normal [facility] Comment on above: Result Comment: [place] om Glucose Reference Range is dependent on time and content of last meal. Glucose of more than 200 mg/dL in a nonstressed, ambulatory subject supports the diagnosis of Diabetes Mellitus.PERFORMED BY:[address] [place], [place] [phone] CHRISTOPHER PADILLA M.D. Performed By: #### G LULS ####Point of Care testing, Glucose [Mass/Vol] 140 mg/dL Normal [facility] Comment on above: Result Comment: [facility] Glucose Reference Range is dependent on time and content of last meal. Glucose of more than 200 mg/dL in a nonstressed, ambulatory subject supports the diagnosis of Diabetes Mellitus.PERFORMED BY:[address] [place], [place] [phone] MEDICAL JULIAN PADLILA M.D. Performed By: #### G LULS ####Point of Care testing, B-Type Natriuretic Peptideon 03-31-2025 Natriuretic peptide B (Bld) [Mass/Vol] 791.0 pg/mL High 5-100 [facility] Comment on above: Result Comment: PERF ORMED BY:[address] [place], [place] [phone] MEDICAL JULIAN PADILLA M.D. Performed By: #### B DRILLER OPERATOR, CBC ####[place] [id number] [facility] Complete Blood Count Auto Di ffon 03-31-2025 Basophils (Bld) [#/Vol] 0.1 10*3/uL Normal 0.0-0.2 [facility] Comment on above: Result Comment: PERF ORMED BY:[address] [place], [place] [phone] MEDICAL JULIAN PADILLA M.D. Performed By: #### B DRILLER OPERATOR, CBC ####[place] [phone] [facility] Basophils/100 WBC (Bld) 0.5 % Normal . [facility] Comment on above: Performed By: #### B DRILLER OPERATOR, CBC ####[address] Eosinophils (Bld) [#/Vol] 0.0 10*3/uL Normal 0.0-0.45 [facility] Comment on above: Performed By: #### B DRILLER OPERATOR, CBC ####[facility] [address] Eosinophils/100 WBC (Bld) 0.2 % Normal . [facility] Comment on above: Performed By: #### B DRILLER OPERATOR, CBC ####[address] Erythrocyte distribution width (RBC) [Ratio] 17.6 % High 11.9-15.3 [facility] Comment on above: Performed By: #### B DRILLER OPERATOR, CBC ####[address] Hematocrit (Bld) [Volume fraction] 30.6 % Low 34.0-46.4 [facility] Comment on above: Performed By: #### B DRILLER OPERATOR, CBC ####[address] Hemoglobin (Bld) [Mass/Vol] 9.7 g/dL Low 11.8-15.4 [facility] Comment on above: Performed By: #### B DRILLER OPERATOR, CBC ####[address] Lymphocytes (Bld) [#/Vol] 1.1 10*3/uL Normal 1.00-4.8 [facility] Comment on above: Performed By: #### B DRILLER OPERATOR, CBC ####[address] Lymphocytes/100 WBC (Bld) 8.2 % Normal . [facility] Comment on above: Performed By: #### B DRILLER OPERATOR, CBC ####[address] MCH (RBC) [Entitic mass] 32.6 pg Normal 24.7-34.3 [facility] Comment on above: Performed By: #### B DRILLER OPERATOR, CBC ####[address] MCV (RBC) [Entitic vol] 103.0 fL High 80-100 [facility] Comment on above: Performed By: #### B DRILLER OPERATOR, CBC ####[address] Mean Corpuscular HGB Conc 31.7 g/dL Low 32.0-35.0 [facility] Comment on above: Performed By: #### B DRILLER OPERATOR, CBC ####[address] Monocytes (Bld) [#/Vol] 0.7 10*3/uL Normal 0.0-0.8 [facility] Comment on above: Performed By: #### B DRILLER OPERATOR, CBC ####[address] Monocytes/100 WBC (Bld) 5.6 % Normal . [facility] Comment on above: Performed By: #### B DRILLER OPERATOR, CBC ####[address] Neutrophils (Bld) [#/Vol] 11.2 10*3/uL High 1.8-7.7 [facility] Comment on above: Performed By: #### B DRILLER OPERATOR, CBC ####[address] Neutrophils/100 WBC (Bld) 85.5 % Normal . [facility] Comment on above: Performed By: #### B DRILLER OPERATOR, CBC ####[address] NRBC% 0.2 /100{WBC} Normal 0-0.5 [facility] Comment on above: Performed By: #### B DRILLER OPERATOR, CBC ####[address] Platelet mean volume (Bld) [Entitic vol] 9.4 fL Normal 6.3-10.7 [facility] Comment on above: Performed By: #### B DRILLER OPERATOR, CBC ####[address] Platelets (Bld) [#/Vol] 200 10*3/uL Normal 150-450 [facility] Comment on above: Performed By: #### B DRILLER OPERATOR, CBC ####[address] RBC (Bld) [#/Vol] 2.97 10*6/uL Low 3.60-5.00 [facility] Comment on above: Performed By: #### B DRILLER OPERATOR, CBC ####[address] WBC (Bld) [#/Vol] 13.1 10*3/uL High 3.8-11.6 [facility] Comment on above: Performed By: #### B DRILLER OPERATOR, CBC ####[address] White Blood Count 13.1 [CFU]/mL High 3.8-11.6 [facility] Comment on above: Performed By: #### B DRILLER OPERATOR, CBC ####[address] Glucose Poct Glucometerson 0 03-31-2025 Glucose [Mass/Vol] 264 mg/dL Normal [facility] Comment on above: Result Comment: [facility] Glucose Reference Range is dependent on time and content of last meal. Glucose of more than 200 mg/dL in a nonstressed, ambulatory subject supports the diagnosis of Diabetes Mellitus.PERFORMED BY:[address] [place], [place] [phone] MEDICAL JULIAN PADILLA M.D. Performed By: #### G LULS ####Point of Care testing, Glucose [Mass/Vol] 263 mg/dL Normal [facility] Comment on above: Result Comment: [facility] Glucose Reference Range is dependent on time and content of last meal. Glucose of more than 200 mg/dL in a nonstressed, ambulatory subject supports the diagnosis of Diabetes Mellitus.PERFORMED BY:[address] [place], [place] [phone] MEDICAL JULIAN PADILLA M.D. Performed By: #### G LULS ####Point of Care testing, Glucose [Mass/Vol] 126 mg/dL Normal [facility] Comment on above: Result Comment: [facility] Glucose Reference Range is dependent on time and content of last meal. Glucose of more than 200 mg/dL in a nonstressed, ambulatory subject supports the diagnosis of Diabetes Mellitus.PERFORMED BY:[place] [address] [place], [place] [phone] MEDICAL JULIAN PADILLA M.D. Performed By: #### G LULS ####Point of Care testing, Commemt1 Glu2: Cleaned Meter Normal [facility] Comment on above: Result Comment: PERF ORMED BY:[address] [place], [place] [phone] MEDICAL JULIAN PADILLA M.D. Performed By: #### G LULS ####Point of Care testing, Glucose [Mass/Vol] 120 mg/dL Normal [facility] Comment on above: Result Comment: [place] om Glucose Reference Range is dependent on time and content of last meal. Glucose of more than 200 mg/dL in a nonstressed, ambulatory subject supports the diagnosis of Diabetes Mellitus. Performed By: #### G LULS ####Point of Care testing, Glucose [Mass/Vol] 68 mg/dL Normal [facility] Comment on above: Result Comment: [place] om Glucose Reference Range is dependent on time and content of last meal. Glucose of more than 200 mg/dL in a nonstressed, ambulatory subject supports the diagnosis of Diabetes Mellitus.PERFORMED BY:[address] [place], [place] [phone] MEDICAL JULIAN PADILLA M.D. Performed By: #### G LULS ####Point of Care testing, Glucose [Mass/Vol] 61 mg/dL Normal [facility] Comment on above: Result Comment: [place] om Glucose Reference Range is dependent on time and content of last meal. Glucose of more than 200 mg/dL in a nonstressed, ambulatory subject supports the diagnosis of Diabetes Mellitus.PERFORMED BY:[place] [address] [place], [place] [phone] CHRISTOPHER PADILLA M.D. Performed By: #### G LULS ####Point of Care testing, Glucose Poct Glucometerson 0 917-2025 Glucose [Mass/Vol] 288 mg/dL Normal [facility] Comment on above: Result Comment: [place] om Glucose Reference Range is dependent on time and content of last meal. Glucose of more than 200 mg/dL in a nonstressed, ambulatory subject supports the diagnosis of Diabetes Mellitus.PERFORMED BY:[place] [address] [place], [place] [phone] MEDICAL JULIAN PADILLA M.D. Performed By: #### G LULS ####Point of Care testing, Glucose [Mass/Vol] 216 mg/dL Normal [facility] Comment on above: Result Comment: [place] om Glucose Reference Range is dependent on time and content of last meal. Glucose of more than 200 mg/dL in a nonstressed, ambulatory subject supports the diagnosis of Diabetes Mellitus.PERFORMED BY:[place] [address] [place], [place] [phone] MEDICAL JULIAN PADILLA M.D. Performed By: #### G LULS ####Point of Care testing, Commemt1 Glu2: Cleaned Meter Normal [facility] Comment on above: Result Comment: PERF ORMED BY:[place] [address] [place], [place] [phone] CHRISTOPHER PADILLA M.D. Performed By: #### G LULS ####Point of Care testing, Glucose [Mass/Vol] 109 mg/dL Normal [facility] Comment on above: Result Comment: [place] om Glucose Reference Range is dependent on time and content of last meal. Glucose of more than 200 mg/dL in a nonstressed, ambulatory subject supports the diagnosis of Diabetes Mellitus. Performed By: #### G LULS ####Point of Care testing, Glucose [Mass/Vol] 108 mg/dL Normal [facility] Comment on above: Result Comment: [place] om Glucose Reference Range is dependent on time and content of last meal. Glucose of more than 200 mg/dL in a nonstressed, ambulatory subject supports the diagnosis of Diabetes Mellitus.PERFORMED BY:[address] [address] [place], [place] [phone] MEDICAL JULIAN PADILLA M.D. Performed By: #### G LULS ####Point of Care testing, Glucose [Mass/Vol] 222 mg/dL Normal [facility] Comment on above: Result Comment: [place] Glucose Reference Range is dependent on time and content of last meal. Glucose of more than 200 mg/dL in a nonstressed, ambulatory subject supports the diagnosis of Diabetes Mellitus.PERFORMED BY:[address] [place], [place] [phone] MEDICAL JULIAN PADILLA M.D. Performed By: #### G LULS ####Point of Care testing, BioFire Not Detectedon 03-29 BioFire Not Detected Not detected Normal Not Detecte [facility] Comment on above: Result Comment: This is a duplicate RP2.1 COVID (PCR) result to be used for statistical tracking purpose only.PERFORMED BY:[address] [place], [place] [phone] MEDICAL JULIAN PADILLA M.D. Performed By: #### B IOFIRECOVNOTDE, RESP PANEL UPP. ####[address] [address] [facility] Glucose Poct Glucometerson 0 03-29-2025 Commemt1 Glu2: Cleaned Meter Normal [facility] Comment on above: Result Comment: PERF ORMED BY:[address] [place], [place] [phone] MEDICAL JULIAN PADILLA M.D. Performed By: #### G LULS ####Point of Care testing, Glucose [Mass/Vol] 326 mg/dL Normal [facility] Comment on above: Result Comment: [place] om Glucose Reference Range is dependent on time and content of last meal. Glucose of more than 200 mg/dL in a nonstressed, ambulatory subject supports the diagnosis of Diabetes Mellitus. Performed By: #### G LULS ####Point of Care testing, Glucose [Mass/Vol] 258 mg/dL Normal [facility] Comment on above: Result Comment: [place] om Glucose Reference Range is dependent on time and content of last meal. Glucose of more than 200 mg/dL in a nonstressed, ambulatory subject supports the diagnosis of Diabetes Mellitus.PERFORMED BY:[place] [address] [place], [place] [phone] MEDICAL JULIAN PADILLA M.D. Performed By: #### G LULS ####Point of Care testing, Glucose [Mass/Vol] 145 mg/dL Normal [facility] Comment on above: Result Comment: [facility] Glucose Reference Range is dependent on time and content of last meal. Glucose of more than 200 mg/dL in a nonstressed, ambulatory subject supports the diagnosis of Diabetes Mellitus.PERFORMED BY:[address] [place], [place] [phone] CHRISTOPHER PADILLA M.D. Performed By: #### G LULS ####Point of Care testing, Glucose [Mass/Vol] 80 mg/dL Normal [facility] Comment on above: Result Comment: [facility] Glucose Reference Range is dependent on time and content of last meal. Glucose of more than 200 mg/dL in a nonstressed, ambulatory subject supports the diagnosis of Diabetes Mellitus.PERFORMED BY:[place] [address] [place], [place] [phone] CHRISTOPHER PADILLA M.D. Performed By: #### G LULS ####Point of Care testing, Glucose [Mass/Vol] 66 mg/dL Normal [facility] Comment on above: Result Comment: [facility] Glucose Reference Range is dependent on time and content of last meal. Glucose of more than 200 mg/dL in a nonstressed, ambulatory subject supports the diagnosis of Diabetes Mellitus.PERFORMED BY:[address] [place], [place] [phone] CHRISTOPHER PADILLA M.D. Performed By: #### G LULS ####Point of Care testing, Respiratory (Upper) Panel, P CRon 03-29-2025 Respiratory (Upper) Panel, PCR Normal [facility] Comment on above: Performed By: #### B IOFIRECOVNOTDE, RESP PANEL UPP. ####[address] [address] [facility] Glucose Poct Glucometerson 0 03-28-2025 Glucose [Mass/Vol] 293 mg/dL Normal [facility] Comment on above: Result Comment: [place] Glucose Reference Range is dependent on time and content of last meal. Glucose of more than 200 mg/dL in a nonstressed, ambulatory subject supports the diagnosis of Diabetes Mellitus.PERFORMED BY:[address] [place], [place] [phone] MEDICAL JULIAN PADILLA M.D. Performed By: #### G LULS ####Point of Care testing, Glucose [Mass/Vol] 277 mg/dL Normal [facility] Comment on above: Result Comment: [facility] Glucose Reference Range is dependent on time and content of last meal. Glucose of more than 200 mg/dL in a nonstressed, ambulatory subject supports the diagnosis of Diabetes Mellitus.PERFORMED BY:[address] [place], [place] [phone] MEDICAL JULIAN PADILLA M.D. Performed By: #### G LULS ####Point of Care testing, Glucose [Mass/Vol] 209 mg/dL Normal [facility] Comment on above: Result Comment: [facility] Glucose Reference Range is dependent on time and content of last meal. Glucose of more than 200 mg/dL in a nonstressed, ambulatory subject supports the diagnosis of Diabetes Mellitus.PERFORMED BY:[address] [place], [place] [phone] MEDICAL JULIAN PADILLA M.D. Performed By: #### G LULS ####Point of Care testing, Glucose [Mass/Vol] 92 mg/dL Normal [facility] Comment on above: Result Comment: [place] Glucose Reference Range is dependent on time and content of last meal. Glucose of more than 200 mg/dL in a nonstressed, ambulatory subject supports the diagnosis of Diabetes Mellitus.PERFORMED BY:[address], [place] [phone] MEDICAL JULIAN PADILLA M.D. Performed By: #### G DALLIN ####Point of Care testing, XR chest 1V portableon 03-28 XR chest 1V portable Normal [facility] Basic Metabolic Panelon 03-14 Anion gap [Moles/Vol] 9.5 mmol/L Normal 6.0-15.0 [facility] Comment on above: Performed By: #### B MP ####[address] [address] [facility] Calcium [Mass/Vol] 8.4 mg/dL Low 8.6-10.3 [facility] Comment on above: Performed By: #### B MP ####[address] [address] [facility] Chloride [Moles/Vol] 102 mmol/L Normal 98-107 [facility] Comment on above: Performed By: #### B MP ####[address] [address] [facility] CO2 [Moles/Vol] 30.8 mmol/L Normal 21.0-31.0 [facility] Comment on above: Performed By: #### B MP ####[address] [address] [facility] Creatinine [Mass/Vol] 1.87 mg/dL High 0.60-1.20 [facility] Comment on above: Performed By: #### B MP ####[address] [address] [facility] Creatinine Clr Calc Pharmacy 22.64 Normal [facility] Comment on above: Result Comment: PERF ORMED BY:[place] [address] [place] [phone] MEDICAL JULIAN PADILLA M.D. Performed By: #### B MP ####[address] [address] [facility] GFR/1.73 sq M.predicted MDRD (S/P/Bld) [Vol rate/Area] 27.039 mL/min/{1.73_m2} Normal [facility] Comment on above: Performed By: #### B MP ####[place] [id number] [facility] Glucose [Mass/Vol] 67 mg/dL Low 70-100 [facility] Comment on above: Result Comment: [place] Glucose Reference Range is dependent on time and content of last meal. Glucose of more than 200 mg/dL in a nonstressed, ambulatory subject supports the diagnosis of Diabetes Mellitus. ADA recommended reference range Performed By: #### B MP ####[place] [phone] [facility] Potassium [Moles/Vol] 4.3 mmol/L Normal 3.5-5.1 [facility] Comment on above: Performed By: #### B MP ####[place] [phone] [facility] Sodium [Moles/Vol] 138 mmol/L Normal 136-145 [facility] Comment on above: Performed By: #### B MP ####[address] [address] [facility] Urea nitrogen [Mass/Vol] 52 mg/dL High 7-25 [facility] Comment on above: Performed By: #### B MP ####[address] [address] [facility] Dipstick and Microscopicon 0 03-27-2025 Appearance (U) Cloudy Critically abnormal Clear [facility] Comment on above: Order Comment: Name Collection Type:: Clean-Voided Midstream Performed By: #### A DDONUAPLUS, CUU ####[address] [address] [place] Bacteria,Urine Rare Normal None Seen [facility] Comment on above: Order Comment: Name Collection Type:: Clean-Voided Midstream Performed By: #### A DDONUAPLUS, CUU ####[address] [address] [place] Bilirubin,Urine Negative Normal Negative [facility] Comment on above: Order Comment: Name Collection Type:: Clean-Voided Midstream Performed By: #### A DDONUAPLUS, CUU ####[place] [phone] [facility] Color (U) Light-Yellow Normal Yellow [facility] Comment on above: Order Comment: Name Collection Type:: Clean-Voided Midstream Performed By: #### A DDONUAPLUS, CUU ####[place] [phone] [facility] Glucose Ql (U) Normal Normal Normal [facility] Comment on above: Order Comment: Name Collection Type:: Clean-Voided Midstream Performed By: #### A DDONUAPLUS, CUU ####[place] [phone] [facility] Hyaline Casts,Urine None Normal 0-8 [facility] Comment on above: Order Comment: Name Collection Type:: Clean-Voided Midstream Performed By: #### A DDONUAPLUS, CUU ####[place] [phone] [facility] Ketones Ql (U) Negative Normal Negative [facility] Comment on above: Order Comment: Name Collection Type:: Clean-Voided Midstream Performed By: #### A DDONUAPLUS, CUU ####[place] [phone] [facility] Leukocyte esterase Test strip Ql (U) 4+ Normal Negative [facility] Comment on above: Order Comment: Name Collection Type:: Clean-Voided Midstream Performed By: #### A DDONUAPLUS, CUU ####[place] [phone] [facility] Mucus,Urine Rare Normal [facility] Comment on above: Order Comment: Name Collection Type:: Clean-Voided Midstream Result Comment: PERF ORMED BY:[address] [place], [place] [phone] MEDICAL JULIAN PADILLA M.D. Performed By: #### A DDONUAPLUS, CUU ####[place] [phone] [facility] Nitrite,Urine Negative Normal Negative [facility] Comment on above: Order Comment: Name Collection Type:: Clean-Voided Midstream Performed By: #### A DDONUAPLUS, CUU ####[address] [address] [facility] Occult Blood,Urine 2+ Normal Negative [facility] Comment on above: Order Comment: Name Collection Type:: Clean-Voided Midstream Result Comment: PERF ORMED BY:[address] [place], [place] [phone] MEDICAL JULIAN PADILLA M.D. Performed By: #### A DDONUAPLUS, CUU ####[place] [phone] [facility] pH (U) 5.5 [pH] Normal 5.0-9.0 [facility] Comment on above: Order Comment: Name Collection Type:: Clean-Voided Midstream Performed By: #### A DDONUAPLUS, CUU ####[place] [phone] [facility] Protein (U) [Mass/Vol] 70 mg/dL Normal Negative [facility] Comment on above: Order Comment: Name Collection Type:: Clean-Voided Midstream Performed By: #### A DDONUAPLUS, CUU ####[address] [address] [facility] RBC,Urine 50-100 Normal 0-4 [facility] Comment on above: Order Comment: Name Collection Type:: Clean-Voided Midstream Performed By: #### A DDONUAPLUS, CUU ####[address] [address] [facility] Specificy [place],Urine 1.016 Normal 1.001-1.030 [facility] Comment on above: Order Comment: Name Collection Type:: Clean-Voided Midstream Performed By: #### A DDONUAPLUS, CUU ####[address] [address] [facility] Squamous Epithelial Cell,Urine 3-4 Normal 0-2 [facility] Comment on above: Order Comment: Name Collection Type:: Clean-Voided Midstream Performed By: #### A DDONUAPLUS, CUU ####[place] [id number] Urobilinogen,Urine Normal Normal Normal [facility] Comment on above: Order Comment: Name Collection Type:: Clean-Voided Midstream Performed By: #### A DDONUAPLUS, CUU ####[address] WBC CLUMP, Urine Rare Normal None Seen [facility] Comment on above: Order Comment: Name Collection Type:: Clean-Voided Midstream Performed By: #### A DDONUAPLUS, CUU ####[address] WBC,Urine 20-49 Normal 0-4 [facility] Comment on above: Order Comment: Name Collection Type:: Clean-Voided Midstream Performed By: #### A DDONUAPLUS, CUU ####[address] Glucose Poct Glucometerson 0 03-27-2025 Glucose [Mass/Vol] 333 mg/dL Normal [facility] Comment on above: Result Comment: [place] Glucose Reference Range is dependent on time and content of last meal. Glucose of more than 200 mg/dL in a nonstressed, ambulatory subject supports the diagnosis of Diabetes Mellitus.PERFORMED BY:[address] [place], [place] [phone] MEDICAL JULIAN PADILLA M.D. Performed By: #### G LULS ####Point of Care testing, Glucose [Mass/Vol] 286 mg/dL Normal [facility] Comment on above: Result Comment: [place] Glucose Reference Range is dependent on time and content of last meal. Glucose of more than 200 mg/dL in a nonstressed, ambulatory subject supports the diagnosis of Diabetes Mellitus.PERFORMED BY:[address] [place], [place] [phone] MEDICAL JULIAN PADILLA M.D. Performed By: #### G DALLIN ####Point of Care testing, Commemt1 Glu2: Cleaned Meter Normal [facility] Comment on above: Result Comment: PERF ORMED BY:[place] [address] [place], [place] [phone] MEDICAL JULIAN PADILLA M.D. Performed By: #### G LULS ####Point of Care testing, Glucose [Mass/Vol] 248 mg/dL Normal [facility] Comment on above: Result Comment: [place] om Glucose Reference Range is dependent on time and content of last meal. Glucose of more than 200 mg/dL in a nonstressed, ambulatory subject supports the diagnosis of Diabetes Mellitus. Performed By: #### G BOLS ####Point of Care testing, Glucose [Mass/Vol] 97 mg/dL Normal [facility] Comment on above: Result Comment: [place] om Glucose Reference Range is dependent on time and content of last meal. Glucose of more than 200 mg/dL in a nonstressed, ambulatory subject supports the diagnosis of Diabetes Mellitus.PERFORMED BY:[address] [place], [place] [phone] MEDICAL JULIAN PADILLA M.D. Performed By: #### G DALLIN ####Point of Care testing, Urine Cultureon 03-27-2025 Bacteria identified Cx Nom (U) Normal [facility] Comment on above: Performed By: #### A DDONUAHONG, CUU ####[address] [address] [facility] Basic Metabolic Panelon 03-14 Anion gap [Moles/Vol] 13.4 mmol/L Normal 6.0-15.0 [facility] Comment on above: Performed By: #### C BC BMP ####[place] [phone] [facility] Calcium [Mass/Vol] 8.4 mg/dL Low 8.6-10.3 [facility] Comment on above: Performed By: #### C BC, BMP ####[address] [place] [address] [facility] Chloride [Moles/Vol] 100 mmol/L Normal 98-107 [facility] Comment on above: Performed By: #### C BC, BMP ####[place] [phone] [facility] CO2 [Moles/Vol] 25.2 mmol/L Normal 21.0-31.0 [facility] Comment on above: Performed By: #### C BC, BMP ####[place] [phone] [facility] Creatinine [Mass/Vol] 2.09 mg/dL High 0.60-1.20 [facility] Comment on above: Performed By: #### C BC, BMP ####[place] [phone] [facility] Creatinine Clr Calc Pharmacy 19.28 Normal [facility] Comment on above: Result Comment: PERF ORMED BY:[address] [place], [place] [phone] MEDICAL JULIAN PADILLA M.D. Performed By: #### C BC, BMP ####[place] [phone] [facility] GFR/1.73 sq M.predicted MDRD (S/P/Bld) [Vol rate/Area] 23.661 mL/min/{1.73_m2} Normal [facility] Comment on above: Performed By: #### C BC, BMP ####[place] [phone] [facility] Glucose [Mass/Vol] 131 mg/dL High 70-100 [facility] Comment on above: Result Comment: [place] om Glucose Reference Range is dependent on time and content of last meal. Glucose of more than 200 mg/dL in a nonstressed, ambulatory subject supports the diagnosis of Diabetes Mellitus. ADA recommended reference range Performed By: #### C BC, BMP ####[place] [phone] [facility] Potassium [Moles/Vol] 4.6 mmol/L Normal 3.5-5.1 [facility] Comment on above: Performed By: #### C BC, BMP ####[address] Sodium [Moles/Vol] 134 mmol/L Low 136-145 [facility] Comment on above: Performed By: #### C BC, BMP ####[place] [phone] [facility] Urea nitrogen [Mass/Vol] 52 mg/dL High 7-25 [facility] Comment on above: Performed By: #### C BC, BMP ####[place] [phone] [facility] Complete Blood Count Auto Di ffon 03-26-2025 Basophils (Bld) [#/Vol] 0.1 10*3/uL Normal 0.0-0.2 [facility] Comment on above: Result Comment: PERF ORMED BY:[address] [place], [place] [phone] MEDICAL JULIAN PADILLA M.D. Performed By: #### C BC, BMP ####[place] [phone] [facility] Basophils/100 WBC (Bld) 0.7 % Normal . [facility] Comment on above: Performed By: #### C BC, BMP ####[place] [phone] [facility] Eosinophils (Bld) [#/Vol] 0.3 10*3/uL Normal 0.0-0.45 [facility] Comment on above: Performed By: #### C BC, BMP ####[place] [id number] [facility] Eosinophils/100 WBC (Bld) 2.0 % Normal . [facility] Comment on above: Performed By: #### C BC, BMP ####[address] Erythrocyte distribution width (RBC) [Ratio] 15.7 % High 11.9-15.3 [facility] Comment on above: Performed By: #### C BC, BMP ####[address] Hematocrit (Bld) [Volume fraction] 31.8 % Low 34.0-46.4 [facility] Comment on above: Performed By: #### C BC, BMP ####[address] Hemoglobin (Bld) [Mass/Vol] 10.3 g/dL Low 11.8-15.4 [facility] Comment on above: Performed By: #### C BC, BMP ####[address] Lymphocytes (Bld) [#/Vol] 1.9 10*3/uL Normal 1.00-4.8 [facility] Comment on above: Performed By: #### C NANCY, BMP ####[address] Lymphocytes/100 WBC (Bld) 14.7 % Normal . [facility] Comment on above: Performed By: #### C NANCY, BMP ####[address] MCH (RBC) [Entitic mass] 32.8 pg Normal 24.7-34.3 [facility] Comment on above: Performed By: #### C BC, BMP ####[address] MCV (RBC) [Entitic vol] 101.8 fL High 80-100 [facility] Comment on above: Performed By: #### C BC, BMP ####[place] [id number] [facility] Mean Corpuscular HGB Conc 32.3 g/dL Normal 32.0-35.0 [facility] Comment on above: Performed By: #### C BC, BMP ####[address] Monocytes (Bld) [#/Vol] 0.9 10*3/uL High 0.0-0.8 [facility] Comment on above: Performed By: #### C BC, BMP ####[address] [address] [facility] Monocytes/100 WBC (Bld) 7.0 % Normal . [facility] Comment on above: Performed By: #### C BC, BMP ####[address] [address] [facility] Neutrophils (Bld) [#/Vol] 9.8 10*3/uL High 1.8-7.7 [facility] Comment on above: Performed By: #### C BC, BMP ####[address] [address] [facility] Neutrophils/100 WBC (Bld) 75.6 % Normal . [facility] [facility] Comment on above: Performed By: #### C BC, BMP ####[place] [phone] [facility] NRBC% 0.2 /100{WBC} Normal 0-0.5 [facility] Comment on above: Performed By: #### C NANCY, BMP ####[address] [address] [facility] Platelet mean volume (Bld) [Entitic vol] 9.7 fL Normal 6.3-10.7 [facility] Comment on above: Performed By: #### C BC, BMP ####[address] [address] [facility] Platelets (Bld) [#/Vol] 212 10*3/uL Normal 150-450 [facility] Comment on above: Performed By: #### C BC, BMP ####[address] [address] [facility] RBC (Bld) [#/Vol] 3.12 10*6/uL Low 3.60-5.00 [facility] Comment on above: Performed By: #### C BC, BMP ####[address] [address] [facility] WBC (Bld) [#/Vol] 13.0 10*3/uL High 3.8-11.6 [facility] Comment on above: Performed By: #### C BC, BMP ####[facility] [place] [address] [facility] White Blood Count 13.0 [CFU]/mL High 3.8-11.6 [facility] Comment on above: Performed By: #### C BC, BMP ####[facility] [place] [address] [facility] Glucose Poct Glucometerson 0 03-26-2025 Glucose [Mass/Vol] 396 mg/dL Normal [facility] Comment on above: Result Comment: [facility] Glucose Reference Range is dependent on time and content of last meal. Glucose of more than 200 mg/dL in a nonstressed, ambulatory subject supports the diagnosis of Diabetes Mellitus.PERFORMED BY:[place] [address] [address] [place], [place] [phone] MEDICAL JULIAN PADILLA M.D. Performed By: #### G LULS ####Point of Care testing, Commemt1 Glu2: Cleaned Meter Normal [facility] Comment on above: Result Comment: PERF ORMED BY:[address] [place], [place] [phone] MEDICAL JULIAN PADILLA M.D. Performed By: #### G LULS ####Point of Care testing, Glucose [Mass/Vol] 352 mg/dL Normal [facility] Comment on above: Result Comment: [facility] Glucose Reference Range is dependent on time and content of last meal. Glucose of more than 200 mg/dL in a nonstressed, ambulatory subject supports the diagnosis of Diabetes Mellitus. Performed By: #### G LULS ####Point of Care testing, Commemt1 Glu2: Cleaned Meter Normal [facility] Comment on above: Result Comment: PERF ORMED BY:[address] [place], [place] [phone] MEDICAL JULIAN PADILLA M.D. Performed By: #### G LULS ####Point of Care testing, Glucose [Mass/Vol] 148 mg/dL Normal [facility] Comment on above: Result Comment: [place] [facility] Glucose Reference Range is dependent on time and content of last meal. Glucose of more than 200 mg/dL in a nonstressed, ambulatory subject supports the diagnosis of Diabetes Mellitus. Performed By: #### G LULS ####Point of Care testing, Glucose [Mass/Vol] 92 mg/dL Normal [facility] Comment on above: Result Comment: [place] [facility] Glucose Reference Range is dependent on time and content of last meal. Glucose of more than 200 mg/dL in a nonstressed, ambulatory subject supports the diagnosis of Diabetes Mellitus.PERFORMED BY:[place] [address] [address] [place], [place] [phone] MEDICAL JULIAN PADILLA M.D. Performed By: #### G LULS ####Point of Care testing, Glucose Poct Glucometerson 0 03-25-2025 Glucose [Mass/Vol] 364 mg/dL Normal [facility] Comment on above: Result Comment: [place] [facility] Glucose Reference Range is dependent on time and content of last meal. Glucose of more than 200 mg/dL in a nonstressed, ambulatory subject supports the diagnosis of Diabetes Mellitus.PERFORMED BY:[place] [address] [place], [place] [phone] CHRISTOPHER PADILLA M.D. Performed By: #### G LULS ####Point of Care testing, Glucose [Mass/Vol] 248 mg/dL Normal [facility] Comment on above: Result Comment: [place] [facility] Glucose Reference Range is dependent on time and content of last meal. Glucose of more than 200 mg/dL in a nonstressed, ambulatory subject supports the diagnosis of Diabetes Mellitus.PERFORMED BY:[place] [address] [place], [place] [phone] CHRISTOPHER PADILLA M.D. Performed By: #### G LULS ####Point of Care testing, Commemt1 Glu2: Cleaned Meter Normal [facility] Comment on above: Result Comment: PERF ORMED BY:[place] [address] [address] [place], [place] [phone] MEDICAL JULIAN PADILLA M.D. Performed By: #### G LULS ####Point of Care testing, Glucose [Mass/Vol] 176 mg/dL Normal [facility] Comment on above: Result Comment: [place] [facility] Glucose Reference Range is dependent on time and content of last meal. Glucose of more than 200 mg/dL in a nonstressed, ambulatory subject supports the diagnosis of Diabetes Mellitus. Performed By: #### G LULS ####Point of Care testing, Commemt1 Glu2: Cleaned Meter Normal [facility] Comment on above: Result Comment: PERF ORMED BY:[address] [place], [place] [phone] MEDICAL JULIAN PADILLA M.D. Performed By: #### G LULS ####Point of Care testing, Glucose [Mass/Vol] 153 mg/dL Normal [facility] Comment on above: Result Comment: [place] [facility] Glucose Reference Range is dependent on time and content of last meal. Glucose of more than 200 mg/dL in a nonstressed, ambulatory subject supports the diagnosis of Diabetes Mellitus. Performed By: #### G LULS ####Point of Care testing, Glucose Poct Glucometerson 0 03-24-2025 Commemt1 Glu2: Cleaned Meter Normal [facility] Comment on above: Result Comment: PERF ORMED BY:[address] [place], [place] [phone] MEDICAL JULIAN PADILLA M.D. Performed By: #### G LULS ####Point of Care testing, Glucose [Mass/Vol] 294 mg/dL Normal [facility] Comment on above: Result Comment: [place] [facility] Glucose Reference Range is dependent on time and content of last meal. Glucose of more than 200 mg/dL in a nonstressed, ambulatory subject supports the diagnosis of Diabetes Mellitus. Performed By: #### G LULS ####Point of Care testing, Commemt1 Normal [facility] Comment on above: Result Comment: Glu2 : WILL NOTIFY DR/RN Performed By: #### G LULS ####Point of Care testing, Commemt2 Cleaned Meter Normal [facility] Comment on above: Result Comment: PERF ORMED BY:[place] [address] [place], [place] [phone] MEDICAL JULIAN PADILLA M.D. Performed By: #### G LULS ####Point of Care testing, Glucose [Mass/Vol] 210 mg/dL Normal [facility] Comment on above: Result Comment: [place] [facility] Glucose Reference Range is dependent on time and content of last meal. Glucose of more than 200 mg/dL in a nonstressed, ambulatory subject supports the diagnosis of Diabetes Mellitus. Performed By: #### G LULS ####Point of Care testing, Glucose [Mass/Vol] 172 mg/dL Normal [facility] Comment on above: Result Comment: [place] [facility] Glucose Reference Range is dependent on time and content of last meal. Glucose of more than 200 mg/dL in a nonstressed, ambulatory subject supports the diagnosis of Diabetes Mellitus.PERFORMED BY:[address] [place]RET[place]aul[place], [place] [phone] MEDICAL JULIAN PADILLA M.D. Performed By: #### G LULS ####Point of Care testing, Glucose [Mass/Vol] 136 mg/dL Normal [facility] Comment on above: Result Comment: [place] [facility] Glucose Reference Range is dependent on time and content of last meal. Glucose of more than 200 mg/dL in a nonstressed, ambulatory subject supports the diagnosis of Diabetes Mellitus.PERFORMED BY:[place] [address] [place], [place] [phone] CHRISTOPHER PADILLA M.D. Performed By: #### G LULS ####Point of Care testing, Complete Blood Count Auto Di ffon 03-23-2025 Basophils (Bld) [#/Vol] 0.0 10*3/uL Normal 0.0-0.2 [facility] Comment on above: Result Comment: PERF ORMED BY:[place] [address] [address] [place], [place] [phone] CHRISTOPHER PADILLA M.D. Performed By: #### C BC, CMP, PAB ####[place] [phone] [facility] Basophils/100 WBC (Bld) 0.3 % Normal . [facility] Comment on above: Performed By: #### C BC, CMP, PAB ####[address] Eosinophils (Bld) [#/Vol] 0.0 10*3/uL Normal 0.0-0.45 [facility] Comment on above: Performed By: #### C BC, CMP, PAB ####[place] [phone] [facility] Eosinophils/100 WBC (Bld) 0.0 % Normal . [facility] Comment on above: Performed By: #### C BC, CMP, PAB ####[address] Erythrocyte distribution width (RBC) [Ratio] 15.9 % High 11.9-15.3 [facility] Comment on above: Performed By: #### C BC, CMP, PAB ####[address] Hematocrit (Bld) [Volume fraction] 29.4 % Low 34.0-46.4 [facility] Comment on above: Performed By: #### C BC, CMP, PAB ####[address] Hemoglobin (Bld) [Mass/Vol] 9.5 g/dL Low 11.8-15.4 [facility] Comment on above: Performed By: #### C BC, CMP, PAB ####[address] Lymphocytes (Bld) [#/Vol] 1.4 10*3/uL Normal 1.00-4.8 [facility] Comment on above: Performed By: #### C BC, CMP, PAB ####[place] [phone] [facility] Lymphocytes/100 WBC (Bld) 10.5 % Normal . [facility] Comment on above: Performed By: #### C BC, CMP, PAB ####[address] MCH (RBC) [Entitic mass] 32.4 pg Normal 24.7-34.3 [facility] Comment on above: Performed By: #### C BC, CMP, PAB ####[address] MCV (RBC) [Entitic vol] 100.3 fL High 80-100 [facility] Comment on above: Performed By: #### C BC, CMP, PAB ####[address] Mean Corpuscular HGB Conc 32.3 g/dL Normal 32.0-35.0 [facility] Comment on above: Performed By: #### C BC, CMP, PAB ####[address] Monocytes (Bld) [#/Vol] 1.1 10*3/uL High 0.0-0.8 [facility] Comment on above: Performed By: #### C BC, CMP, PAB ####[address] Monocytes/100 WBC (Bld) 8.0 % Normal . [facility] Comment on above: Performed By: #### C BC, CMP, PAB ####[address] Neutrophils (Bld) [#/Vol] 10.9 10*3/uL High 1.8-7.7 [facility] Comment on above: Performed By: #### C BC, CMP, PAB ####[address] Neutrophils/100 WBC (Bld) 81.2 % Normal . [facility] Comment on above: Performed By: #### C BC, CMP, PAB ####[address] NRBC% 0.1 /100{WBC} Normal 0-0.5 [facility] Comment on above: Performed By: #### C BC, CMP, PAB ####[address] Platelet mean volume (Bld) [Entitic vol] 10.1 fL Normal 6.3-10.7 [facility] Comment on above: Performed By: #### C BC, CMP, PAB ####[address] Platelets (Bld) [#/Vol] 171 10*3/uL Normal 150-450 [facility] Comment on above: Performed By: #### C BC, CMP, PAB ####[address] RBC (Bld) [#/Vol] 2.93 10*6/uL Low 3.60-5.00 [facility] Comment on above: Performed By: #### C BC, CMP, PAB ####[address] WBC (Bld) [#/Vol] 13.4 10*3/uL High 3.8-11.6 [facility] Comment on above: Performed By: #### C BC, CMP, PAB ####[address] White Blood Count 13.4 [CFU]/mL High 3.8-11.6 [facility] Comment on above: Performed By: #### C BC, CMP, PAB ####[address] Comprehensive Metabolic Pane ben 03-23-2025 Albumin [Mass/Vol] 3.2 g/dL Low 3.5-5.7 [facility] Comment on above: Performed By: #### C BC, CMP, PAB ####[address] Albumin/Globulin [Mass ratio] 1.1 {ratio} Normal [facility] Comment on above: Performed By: #### C BC, CMP, PAB ####[facility] [place] [address] [facility] ALP [Catalytic activity/Vol] 41 U/L Normal 34-104 [facility] Comment on above: Performed By: #### C BC, CMP, PAB ####[facility] [place] [address] [facility] ALT [Catalytic activity/Vol] U/L Low 7-52 [facility] Comment on above: Performed By: #### C BC, CMP, PAB ####[place] [phone] [facility] Anion gap [Moles/Vol] 12.2 mmol/L Normal 6.0-15.0 [facility] Comment on above: Performed By: #### C BC, CMP, PAB ####[place] [phone] [facility] AST [Catalytic activity/Vol] 15 U/L Normal 13-39 [facility] Comment on above: Performed By: #### C BC, CMP, PAB ####[place] [phone] [facility] Bilirubin [Mass/Vol] 0.2 mg/dL Low 0.3-1.0 [facility] Comment on above: Performed By: #### C BC, CMP, PAB ####[place] [phone] [facility] Calcium [Mass/Vol] 8.5 mg/dL Low 8.6-10.3 [facility] Comment on above: Performed By: #### C BC, CMP, PAB ####[place] [phone] [facility] Chloride [Moles/Vol] 101 mmol/L Normal 98-107 [facility] Comment on above: Performed By: #### C BC, CMP, PAB ####[place] [phone] [facility] CO2 [Moles/Vol] 27.3 mmol/L Normal 21.0-31.0 [facility] Comment on above: Performed By: #### C BC, CMP, PAB ####[address] Creatinine [Mass/Vol] 1.89 mg/dL High 0.60-1.20 [facility] Comment on above: Performed By: #### C RADHA CRUZ, PAB ####[place] [phone] [facility] Creatinine Clr Calc Pharmacy 21.32 Normal [facility] Comment on above: Performed By: #### C RADHA CRUZ, PAB ####[address] GFR/1.73 sq M.predicted MDRD (S/P/Bld) [Vol rate/Area] 26.696 mL/min/{1.73_m2} Normal [facility] Comment on above: Performed By: #### C RADHA CRUZ, PAB ####[address] Globulin (S) [Mass/Vol] 2.9 g/dL Normal [facility] Comment on above: Performed By: #### C RADHA CRUZ, PAB ####[address] Glucose [Mass/Vol] 163 mg/dL High 70-100 [facility] Comment on above: Result Comment: [place] Glucose Reference Range is dependent on time and content of last meal. Glucose of more than 200 mg/dL in a nonstressed, ambulatory subject supports the diagnosis of Diabetes Mellitus. ADA recommended reference range Performed By: #### C RADHA CRUZ, PAB ####[address] Potassium [Moles/Vol] 4.5 mmol/L Normal 3.5-5.1 [facility] Comment on above: Performed By: #### C RADHA CRUZ, PAB ####[address] Protein [Mass/Vol] 6.1 g/dL Low 6.4-8.9 [facility] Comment on above: Performed By: #### C RADHA CRUZ, PAB ####[address] [place] [address] [facility] Sodium [Moles/Vol] 136 mmol/L Normal 136-145 [facility] Comment on above: Performed By: #### C RADHA CRUZ, PAB ####[facility] [place] [address] [facility] Urea nitrogen [Mass/Vol] 45 mg/dL High 7-25 [facility] Comment on above: Performed By: #### C RADHA CRUZ, PAB ####[place] [phone] [facility] Glucose Poct Glucometerson 0 03-23-2025 Glucose [Mass/Vol] 322 mg/dL Normal [facility] Comment on above: Result Comment: [facility] Glucose Reference Range is dependent on time and content of last meal. Glucose of more than 200 mg/dL in a nonstressed, ambulatory subject supports the diagnosis of Diabetes Mellitus.PERFORMED BY:[address] [place], [place] [phone] MEDICAL JULIAN PADILLA M.D. Performed By: #### G LULS ####Point of Care testing, Glucose [Mass/Vol] 235 mg/dL Normal [facility] Comment on above: Result Comment: [facility] Glucose Reference Range is dependent on time and content of last meal. Glucose of more than 200 mg/dL in a nonstressed, ambulatory subject supports the diagnosis of Diabetes Mellitus.PERFORMED BY:[address] [place], [place] [phone] MEDICAL JULIAN PADILLA M.D. Performed By: #### G LULS ####Point of Care testing, Glucose [Mass/Vol] 232 mg/dL Normal [facility] Comment on above: Result Comment: [facility] Glucose Reference Range is dependent on time and content of last meal. Glucose of more than 200 mg/dL in a nonstressed, ambulatory subject supports the diagnosis of Diabetes Mellitus.PERFORMED BY:[address] [place]ual[place], [place] [phone] CHRISTOPHER PADILLA M.D. Performed By: #### G LULS ####Point of Care testing, Glucose [Mass/Vol] 161 mg/dL Normal [facility] Comment on above: Result Comment: [facility] Glucose Reference Range is dependent on time and content of last meal. Glucose of more than 200 mg/dL in a nonstressed, ambulatory subject supports the diagnosis of Diabetes Mellitus.PERFORMED BY:[address] [place], [place] [phone] MEDICAL JULIAN PADILLA M.D. Performed By: #### G LULS ####Point of Care testing, Prealbuminon 03-23-2024 Prealbumin [Mass/Vol] 16.6 mg/dL Low 17.0-34.0 [facility] Comment on above: Result Comment: PERF ORMED BY:[address] [place], [place] [phone] MEDICAL JULIAN PADILLA M.D. Performed By: #### C BC, CMP, PAB ####[address] [address] [facility] Basic Metabolic Panelon Anion gap [Moles/Vol] 12.3 mmol/L Normal 6.0-15.0 [facility] Comment on above: Performed By: #### B MP, CBC ####[address] [address] [facility] Calcium [Mass/Vol] 8.1 mg/dL Low 8.6-10.3 [facility] Comment on above: Performed By: #### B MP, CBC ####[address] [address] [facility] Chloride [Moles/Vol] 96 mmol/L Low 98-107 [facility] Comment on above: Performed By: #### B MP, CBC ####[address] [address] [facility] CO2 [Moles/Vol] 28.4 mmol/L Normal 21.0-31.0 [facility] Comment on above: Performed By: #### B MP, CBC ####[place] [phone] [facility] Creatinine [Mass/Vol] 1.89 mg/dL High 0.60-1.20 [facility] Comment on above: Performed By: #### B MP, CBC ####[place] [phone] [facility] Creatinine Clr Calc Pharmacy 21.33 Normal [facility] Comment on above: Result Comment: PERF ORMED BY:[address] [place], [place] [phone] MEDICAL JULIAN PADILLA M.D. Performed By: #### B MARIO, CBC ####[place] [phone] [facility] GFR/1.73 sq M.predicted MDRD (S/P/Bld) [Vol rate/Area] 26.696 mL/min/{1.73_m2} Normal [facility] Comment on above: Performed By: #### B MARIO, CBC ####[address] Glucose [Mass/Vol] 374 mg/dL High 70-100 [facility] Comment on above: Result Comment: [place] Glucose Reference Range is dependent on time and content of last meal. Glucose of more than 200 mg/dL in a nonstressed, ambulatory subject supports the diagnosis of Diabetes Mellitus. ADA recommended reference range Performed By: #### B MP, CBC ####[place] [phone] [facility] Potassium [Moles/Vol] 4.7 mmol/L Normal 3.5-5.1 [facility] Comment on above: Performed By: #### B MP, CBC ####[place] [phone] [place] Sodium [Moles/Vol] 132 mmol/L Low 136-145 [facility] Comment on above: Performed By: #### B MP, CBC ####[place] [phone] [facility] Urea nitrogen [Mass/Vol] 40 mg/dL High 7-25 [facility] Comment on above: Performed By: #### B MP, CBC ####[address] [address] [facility] Complete Blood Count Auto Di ffon 03-22-2025 Basophils (Bld) [#/Vol] 0.0 10*3/uL Normal 0.0-0.2 [facility] Comment on above: Result Comment: PERF ORMED BY:[address] [place], [place] [phone] MEDICAL DIRECTORALINA PADILLA M.D. Performed By: #### B MP, CBC ####[place] [phone] [facility] Basophils/100 WBC (Bld) 0.2 % Normal . [facility] Comment on above: Performed By: #### B MP, CBC ####[place] [phone] [facility] Eosinophils (Bld) [#/Vol] 0.0 10*3/uL Normal 0.0-0.45 [facility] Comment on above: Performed By: #### B MP, CBC ####[place] [phone] [facility] Eosinophils/100 WBC (Bld) 0.0 % Normal . [facility] Comment on above: Performed By: #### B MP, CBC ####[place] [phone] [facility] Erythrocyte distribution width (RBC) [Ratio] 15.3 % Normal 11.9-15.3 [facility] Comment on above: Performed By: #### B MP, CBC ####[place] [phone] [facility] Hematocrit (Bld) [Volume fraction] 31.2 % Low 34.0-46.4 [facility] Comment on above: Performed By: #### B MP, CBC ####[place] [phone] [facility] Hemoglobin (Bld) [Mass/Vol] 10.2 g/dL Low 11.8-15.4 [facility] Comment on above: Performed By: #### B MP, CBC ####[address] Lymphocytes (Bld) [#/Vol] 1.1 10*3/uL Normal 1.00-4.8 [facility] Comment on above: Performed By: #### B MP, CBC ####[place] [phone] [facility] Lymphocytes/100 WBC (Bld) 9.2 % Normal . [facility] Comment on above: Performed By: #### B MP, CBC ####[place] [phone] [facility] MCH (RBC) [Entitic mass] 32.8 pg Normal 24.7-34.3 [facility] Comment on above: Performed By: #### B MP, CBC ####[address] MCV (RBC) [Entitic vol] 100.3 fL High 80-100 [facility] Comment on above: Performed By: #### B MP, CBC ####[address] Mean Corpuscular HGB Conc 32.7 g/dL Normal 32.0-35.0 [facility] Comment on above: Performed By: #### B MP, CBC ####[address] Monocytes (Bld) [#/Vol] 0.8 10*3/uL Normal 0.0-0.8 [facility] Comment on above: Performed By: #### B MP, CBC ####[place] [id number] [facility] Monocytes/100 WBC (Bld) 7.1 % Normal . [facility] Comment on above: Performed By: #### B MP, CBC ####[address] Neutrophils (Bld) [#/Vol] 9.8 10*3/uL High 1.8-7.7 [facility] Comment on above: Performed By: #### B MP, CBC ####[address] [address] [facility] Neutrophils/100 WBC (Bld) 83.5 % Normal . [facility] Comment on above: Performed By: #### B MP, CBC ####[address] [address] [facility] NRBC% 0.1 /100{WBC} Normal 0-0.5 [facility] Comment on above: Performed By: #### B MP, CBC ####[address] [address] [facility] Platelet mean volume (Bld) [Entitic vol] 9.5 fL Normal 6.3-10.7 [facility] Comment on above: Performed By: #### B MP, CBC ####[address] [address] [facility] Platelets (Bld) [#/Vol] 178 10*3/uL Normal 150-450 [facility] Comment on above: Performed By: #### B MP, CBC ####[address] [address] [facility] RBC (Bld) [#/Vol] 3.11 10*6/uL Low 3.60-5.00 [facility] Comment on above: Performed By: #### B MP, CBC ####[address] [address] [facility] WBC (Bld) [#/Vol] 11.8 10*3/uL High 3.8-11.6 [facility] Comment on above: Performed By: #### B MP, CBC ####[address] [address] [facility] White Blood Count 11.8 [CFU]/mL High 3.8-11.6 [facility] Comment on above: Performed By: #### B MP, CBC ####[address] [address] [facility] Glucose Poct Glucometerson 0 03-22-2025 Glucose [Mass/Vol] 311 mg/dL Normal [facility] Comment on above: Result Comment: [place] om Glucose Reference Range is dependent on time and content of last meal. Glucose of more than 200 mg/dL in a nonstressed, ambulatory subject supports the diagnosis of Diabetes Mellitus.PERFORMED BY:[place] [address] [address] [place], [place] [phone] MEDICAL JULIAN PADILLA M.D. Performed By: #### G LULS ####Point of Care testing, Commemt1 Glu2: Cleaned Meter Normal [facility] Comment on above: Result Comment: PERF ORMED BY:[address] [place], [place] [phone] MEDICAL JULIAN PADILLA M.D. Performed By: #### G LULS ####Point of Care testing, Glucose [Mass/Vol] 377 mg/dL Normal [facility] Comment on above: Result Comment: [place] om Glucose Reference Range is dependent on time and content of last meal. Glucose of more than 200 mg/dL in a nonstressed, ambulatory subject supports the diagnosis of Diabetes Mellitus. Performed By: #### G LULS ####Point of Care testing, Commemt1 Normal [facility] Comment on above: Result Comment: Glu2 : WILL NOTIFY DR/RNPERFORMED BY:[address] BARRETOPaulMA[place], [place] [phone] MEDICAL JULIAN PADILLA M.D. Performed By: #### G LULS ####Point of Care testing, Glucose [Mass/Vol] 456 mg/dL Off scale high [facility] Comment on above: Result Comment: [place] om Glucose Reference Range is dependent on time and content of last meal. Glucose of more than 200 mg/dL in a nonstressed, ambulatory subject supports the diagnosis of Diabetes Mellitus. Performed By: #### G LULS ####Point of Care testing, Commemt1 Normal [facility] Comment on above: Result Comment: Glu2 : WILL NOTIFY DR/RN Performed By: #### G LULS ####Point of Care testing, Commemt2 Will Repeat Test Normal [facility] Comment on above: Result Comment: PERF ORMED BY:[place] [address] [address] [place] [phone] MEDICAL JULIAN PADILLA M.D. Performed By: #### G LULS ####Point of Care testing, Glucose [Mass/Vol] 419 mg/dL Off scale high [facility] Comment on above: Result Comment: [place] om Glucose Reference Range is dependent on time and content of last meal. Glucose of more than 200 mg/dL in a nonstressed, ambulatory subject supports the diagnosis of Diabetes Mellitus. Performed By: #### G LULS ####Point of Care testing, Glucose [Mass/Vol] 378 mg/dL Normal [facility] Comment on above: Result Comment: [place] om Glucose Reference Range is dependent on time and content of last meal. Glucose of more than 200 mg/dL in a nonstressed, ambulatory subject supports the diagnosis of Diabetes Mellitus.PERFORMED BY:[place] [address] [address] [place], [place] [phone] MEDICAL JULIAN PADILLA M.D. Performed By: #### G LULS ####Point of Care testing, Glucose [Mass/Vol] 340 mg/dL Normal [facility] Comment on above: Result Comment: [place] om Glucose Reference Range is dependent on time and content of last meal. Glucose of more than 200 mg/dL in a nonstressed, ambulatory subject supports the diagnosis of Diabetes Mellitus.PERFORMED BY:[place] [address] [address] [place], [place] [phone] CHRISTOPHER PADILLA M.D. Performed By: #### G LULS ####Point of Care testing, Glucose Poct Glucometerson 0 03-21-2025 Commemt1 Normal [facility] Comment on above: Result Comment: Glu2 : Result Not ConfirmedPERFORMED BY:[place] [address] [address] [place] [phone] MEDICAL JULIAN PADILLA M.D. Performed By: #### G LULS ####Point of Care testing, Glucose [Mass/Vol] 442 mg/dL Off scale high [facility] Comment on above: Result Comment: [place] om Glucose Reference Range is dependent on time and content of last meal. Glucose of more than 200 mg/dL in a nonstressed, ambulatory subject supports the diagnosis of Diabetes Mellitus. Performed By: #### G LULS ####Point of Care testing, Commemt1 Normal [facility] Comment on above: Result Comment: Glu2 : Will Repeat TestPERFORMED BY:[address] TEAYaelPaulMAYURI, [place] [phone] MEDICAL JULIAN PADILLA M.D. Performed By: #### G LULS ####Point of Care testing, Glucose [Mass/Vol] 428 mg/dL Off scale high [facility] Comment on above: Result Comment: [place] om Glucose Reference Range is dependent on time and content of last meal. Glucose of more than 200 mg/dL in a nonstressed, ambulatory subject supports the diagnosis of Diabetes Mellitus. Performed By: #### G LULS ####Point of Care testing, Glucose [Mass/Vol] 188 mg/dL Normal [facility] Comment on above: Result Comment: [place] om Glucose Reference Range is dependent on time and content of last meal. Glucose of more than 200 mg/dL in a nonstressed, ambulatory subject supports the diagnosis of Diabetes Mellitus.PERFORMED BY:[address] BARRETOPaulMAYURI, [place] [phone] CHRISTOPHER PADILLA M.D. Performed By: #### G LULS ####Point of Care testing, Glucose [Mass/Vol] 132 mg/dL Normal [facility] Comment on above: Result Comment: [place] om Glucose Reference Range is dependent on time and content of last meal. Glucose of more than 200 mg/dL in a nonstressed, ambulatory subject supports the diagnosis of Diabetes Mellitus.PERFORMED BY:[place] [address] [address] [place], [place] [phone] MEDICAL JULIAN PADILLA M.D. Performed By: #### G LULS ####Point of Care testing, Ben 03-21-2025 L Normal [facility] XR hip LT 1Von 03-21-2025 XR hip LT 1V Normal [facility] XR low pelvis w/LT x-table h ipon 03-21-2025 XR low pelvis w/LT x-table hip Normal [facility] X-ray reportOrdered By: Andera Iraheta on 03-09-2025 Study report [facility] [address] [place] [address] XRay Report Signed Patient: Lexi Tatum MR#: [id number] : 1945 Acct:[id number] Age/Sex: 79 / F ADM Date: 5 [place] [facility] [place] Type: [facility] Attending Dr: Da Lozano II, MD Copies [...] STUDY.. Impression dictated by: Earnest Iraheta Jr., DPaulOPaul 03/09/2025 4:45 PM Dictation Location: [place] [address] Transcribed By: [facility] 03/09/25 164 Dictated By: Earnest Iraheta Jr, DO 03/09/25 164 Signed By: 03/09/251644 [facility] XR hip LT min 2V(w/wo pelvis )*on 03-09-2025 XR hip LT min 2V(w/wo pelvis)* Normal [facility] Appearance of UrineOrdered B y: Da Lozano on 03-03-2025 Appearance (U) Turbid Critically abnormal Clear [facility] Comment on above: Order Comment: Name Collection Type:: Clean-Voided Midstream Performed By: #### C UU, ADDONUAPLUS ####[address] Bacteria [Presence] in Urine by AutomatedOrdered By: Da Lozano on 03-03-2025 Bacteria Auto Ql (U) 2+ [HPF] High None Seen [facility] Basic Metabolic Panelon 02-12 GFR/1.73 sq M.predicted MDRD (S/P/Bld) [Vol rate/Area] 25.714 mL/min/{1.73_m2} Normal [facility] Comment on above: Performed By: #### C BC, BMP ####[address]#### FRUC ####[facility] , Basophils [#/volume] in Bloo d by Automated countOrdered By: Da Lozano on 03-03-2025 Basophils (Bld) [#/Vol] 0.1 10*3/uL Normal 0.0-0.2 [facility] Comment on above: Result Comment: PERF ORMED BY:[address] [place]Paul[place], [place] [phone] MEDICAL JULIAN PADILLA M.D. Performed By: #### C BC, BMP ####[address]#### FRUC ####[facility] , Basophils/100 leukocytes in Blood by Automated countOrdered By: Da Lozano on 03-03-2025 Basophils/100 WBC (Bld) 0.8 % Normal . [facility] Comment on above: Performed By: #### C BC, BMP ####[address]#### FRUC ####[facility] , Bilirubin Test strip Ql (U)O rdered By: Da Lozano on 03-03-2025 Bilirubin Ql (U) Negative Negative [facility] Calcium [Mass/volume] in Ser um or PlasmaOrdered By: Da Lozano on 03-03-2025 Calcium [Mass/Vol] 9.6 mg/dL Normal 8.6-10.[address] [facility] Comment on above: Result Comment: PERF ORMED BY:[address] [place], [place] [phone] MEDICAL DIRECTORALINA PADILLA M.D. Performed By: #### C BC, BMP ####[address]#### FRUC ####[facility] , Carbon dioxide, total [Moles /volume] in Serum or PlasmaOrdered By: Da Lozano on 03-03-2025 CO2 [Moles/Vol] 32.6 mmol/L High 21.0-31.0 [facility] Comment on above: Performed By: #### C BC, BMP ####[address]#### FRUC ####[facility] , Chloride [Moles/volume] in [place] or PlasmaOrdered By: Da Lozano on 03-03-2025 Chloride [Moles/Vol] 100 mmol/L Normal 98-107 [facility] Comment on above: Performed By: #### C BC, BMP ####[address]#### FRUC ####[facility] , Color of Urine by AutoOrdere d By: Da Lozano on 03-03-2025 Color (U) Light-orange Critically abnormal Yellow [facility] Comment on above: Order Comment: Name Collection Type:: Clean-Voided Midstream Performed By: #### C UU, ADDONUAPLUS ####[address] Complete Blood Count Auto Di ffon 03-03-2025 Mean Corpuscular HGB Conc 32.5 g/dL Normal 32.0-35.0 [facility] Comment on above: Performed By: #### C BC, BMP ####[address]#### FRUC ####[facility] , NRBC% 0.1 /100{WBC} Normal 0-0.5 [facility] Comment on above: Performed By: #### C BC, BMP ####[address]#### FRUC ####[facility] , White Blood Count 10.2 [CFU]/mL Normal 3.8-11.6 [facility] Comment on above: Performed By: #### C BC, BMP ####[address]#### FRUC ####[facility] , Creatinine [Mass/volume] in Serum or PlasmaOrdered By: Da Lozano on 03-03-2025 Creatinine [Mass/Vol] 1.95 mg/dL High 0.60-1.20 [facility] Comment on above: Performed By: #### C BC, BMP ####[address]#### FRUC ####[facility] , Dipstick and Microscopicon 0 03-03-2025 Bacteria,Urine 2+ [HPF] Normal None Seen [facility] Comment on above: Order Comment: Name Collection Type:: Clean-Voided Midstream Performed By: #### C UU, ADDONUAPLUS ####[address] Bilirubin,Urine Negative Normal Negative [facility] Comment on above: Order Comment: Name Collection Type:: Clean-Voided Midstream Performed By: #### C UU, ADDONUAPLUS ####[address] Glucose Ql (U) Normal Normal Normal [facility] Comment on above: Order Comment: Name Collection Type:: Clean-Voided Midstream Performed By: #### C UU, ADDONUAPLUS ####[address] [address] [facility] Hyaline Casts,Urine None Normal 0-8 [facility] Comment on above: Order Comment: Name Collection Type:: Clean-Voided Midstream Performed By: #### C UU, ADDONUAPLUS ####[place] [id number] [facility] Mucus,Urine Rare Normal [facility] Comment on above: Order Comment: Name Collection Type:: Clean-Voided Midstream Result Comment: PERF ORMED BY:[address] [place], [place] [phone] MEDICAL JULIAN PADILLA M.D. Performed By: #### C UU, ADDONUAPLUS ####[place] [id number] [facility] Nitrite,Urine Negative Normal Negative [facility] Comment on above: Order Comment: Name Collection Type:: Clean-Voided Midstream Performed By: #### C UU, ADDONUAPLUS ####[place] [id number] [facility] Non-Squamous Epithelial Cell,U 3-4 Normal None Seen [facility] Comment on above: Order Comment: Name Collection Type:: Clean-Voided Midstream Performed By: #### C UU, ADDONUAPLUS ####[place] [id number] [facility] Occult Blood,Urine 1+ Normal Negative [facility] Comment on above: Order Comment: Name Collection Type:: Clean-Voided Midstream Result Comment: PERF ORMED BY:[address] [place], [place] [phone] MEDICAL JULIAN PADILLA M.D. Performed By: #### C UU, ADDONUAPLUS ####[address] [place] [address] [place] RBC,Urine 10-19 Normal 0-4 [facility] Comment on above: Order Comment: Name Collection Type:: Clean-Voided Midstream Performed By: #### C UU, ADDONUAPLUS ####[address] Specificy [place],Urine 1.012 Normal 1.001-1.030 [facility] Comment on above: Order Comment: Name Collection Type:: Clean-Voided Midstream Performed By: #### C UU, ADDONUAPLUS ####[address] Squamous Epithelial Cell,Urine 10-19 Normal 0-2 [facility] Comment on above: Order Comment: Name Collection Type:: Clean-Voided Midstream Performed By: #### C UU, ADDONUAPLUS ####[address] Urobilinogen,Urine Normal Normal Normal [facility] Comment on above: Order Comment: Name Collection Type:: Clean-Voided Midstream Performed By: #### C UU, ADDONUAPLUS ####[address] WBC CLUMP, Urine Many Normal None Seen [facility] Comment on above: Order Comment: Name Collection Type:: Clean-Voided Midstream Performed By: #### C UU, ADDONUAPLUS ####[address] WBC,Urine Innumerable Normal 0-4 [facility] Comment on above: Order Comment: Name Collection Type:: Clean-Voided Midstream Performed By: #### C UU, ADDONUAPLUS ####[address] ECG 12 lead ECGon 03-03-2025 ECG 12 lead ECG Normal [facility] Eosinophils [#/volume] in Bl ood by Automated countOrdered By: Da Lozano on 03-03-2025 Eosinophils (Bld) [#/Vol] 0.3 10*3/uL Normal 0.0-0.45 [facility] Comment on above: Performed By: #### C BC, BMP ####[facility] [place] [address] [place]#### FRUC ####[facility] , Eosinophils/100 leukocytes i n Blood by Automated countOrdered By: Da Lozano on 03-03-2025 Eosinophils/100 WBC (Bld) 2.8 % Normal . [facility] Comment on above: Performed By: #### C BC, BMP ####[facility] [place] [address] [place]#### FRUC ####[facility] , Epithelial cells.non-squamou s [#/area] in Urine sediment by Automated countOrdered By: Da Lozano on 03-03-2025 Epithelial cells.non-squamous Auto (Urine sed) [#/Area] 3-4 [HPF] High None Seen [facility] Epithelial cells.squamous [# /area] in Urine sediment by Automated countOrdered By: Da Lozano on 03-03-2025 Epithelial cells.squamous Auto (Urine sed) [#/Area] 10-19 [HPF] High 0-2 [facility] Erythrocyte distribution wid th [Ratio] by Automated countOrdered By: Da Lozano on 03-03-2025 Erythrocyte distribution width (RBC) [Ratio] 16.2 % High 11.9-15.3 [facility] Comment on above: Performed By: #### C BC, BMP ####[facility] [place] [address] [place]#### FRUC ####[facility] , Erythrocytes [#/area] in Uri ne sediment by Automated countOrdered By: Da Lozano on 03-03-2025 RBC Auto (Urine sed) [#/Area] 10-19 [HPF] High 0-4 [facility] Erythrocytes [#/volume] in B lood by Automated countOrdered By: Da Lozano on 03-03-2025 RBC (Bld) [#/Vol] 3.92 10*6/uL Normal 3.60-5.00 [facility] Comment on above: Performed By: #### C BC, BMP ####[facility] [place] [id number] [place]#### FRUC ####[facility] , Fructosamineon 03-03-2025 Fructosamine 280 umol/L Normal 0-285 [facility] Comment on above: Result Comment: Publ ished reference interval for apparently healthy subjects between age 20 and 60 is 205 - 285 umol/L and in a poorly controlled diabetic population is 228 - 563 umol/L with a mean of 396 umol/L. Performed at: [facility] [place] [address] [place], [place] [id number] Grocery Clerk Stocking: Mohan Talbert PhD, Phone: [phone] BY:[address] [place], [place] [phone] MEDICAL DIRECTORALINA PADILLA M.D. Performed By: #### C BC, BMP ####[facility] [place] [id number] [place]#### FRUC ####[facility] , Fructosamine [Moles/volume] in Serum or PlasmaOrdered By: Da Lozano on 03-03-2025 Fructosamine [Moles/Vol] 280 umol/L 0-285 [facility] Comment on above: Published reference interval for apparently healthysubjects between age 20 and 60 is 205 - 285 umol/L and in apoorly controlled diabetic population is 228 - 563 umol/Lwith a mean of 396 umol/L.Performed at: [facility] [address] [place], [place] [id number] Director: Mohan Talbert PhD, Phone: [phone] Glomerular filtration rate [ Volume Rate/Area] in Serum, Plasma or Blood by CreatinineOrdered By: Da Lozano on 03-03-2025 Glomerular filtration rate [Volume Rate/Area] in Serum, Plasma or Blood by Creatinine 25.714 mL/Min [facility] Glucose [Mass/volume] in Ser um or PlasmaOrdered By: Da Lozano on 03-03-2025 Glucose [Mass/Vol] 125 mg/dL High 70-[address] [facility] Comment on above: ADA recommended refe rence rangeRandom Glucose Reference Range is dependent on time and content of last meal. Glucose of more than 200 mg/dL in a nonstressed, ambulatory subject supports the diagnosis of Diabetes Mellitus. Result Comment: [place] om Glucose Reference Range is dependent on time and content of last meal. Glucose of more than 200 mg/dL in a nonstressed, ambulatory subject supports the diagnosis of Diabetes Mellitus. ADA recommended reference range Performed By: #### C BC, BMP ####[place] [id number] [address]#### FRUC ####[facility] , Glucose [Mass/volume] in Uri ne by Test stripOrdered By: Da Lozano on 03-03-2025 Glucose Test strip (U) [Mass/Vol] Normal mg/dL Normal [facility] Hematocrit [Volume Fraction] of Blood by Automated countOrdered By: Da Lozano on 03-03-2025 Hematocrit (Bld) [Volume fraction] 39.5 % Normal 34.0-46.4 [facility] Comment on above: Performed By: #### C BC, BMP ####[address]#### FRUC ####[facility] , Hemoglobin Test strip Ql (U) Ordered By: Da Lozano on 03-03-2025 Hemoglobin Ql (U) 1+ High Negative [facility] Hemoglobin [Mass/volume] in BloodOrdered By: Da Lozano on 03-03-2025 Hemoglobin (Bld) [Mass/Vol] 12.8 g/dL Normal 11.8-15.4 [facility] Comment on above: Performed By: #### C BC, BMP ####[place] [address] [place]#### FRUC ####[facility] , Hyaline casts [#/area] in Ur ine sediment by Automated countOrdered By: Da Lozano on 03-03-2025 Hyaline casts Auto (Urine sed) [#/Area] None [LPF] 0-8 [facility] Ketones [Presence] in Urine by Test stripOrdered By: Da Lozano on 03-03-2025 Ketones Ql (U) Negative Normal Negative [facility] Comment on above: Order Comment: Name Collection Type:: Clean-Voided Midstream Performed By: #### C UU, ADDONUAPLUS ####[facility] [id number] Leukocyte clumps [Presence] in Urine by AutomatedOrdered By: Da Lozano on 03-03-2025 Leukocyte clumps Auto Ql (U) Many [LPF] High None Seen [facility] Leukocyte esterase [Presence ] in Urine by Test stripOrdered By: Da Lozano on 03-03-2025 Leukocyte esterase Test strip Ql (U) 4+ Normal Negative [facility] Comment on above: Order Comment: Name Collection Type:: Clean-Voided Midstream Performed By: #### C UU, ADDONUAPLUS ####[address] Leukocytes [#/area] in Urine sediment by Automated countOrdered By: Da Lozano on 03-03-2025 WBC Auto (Urine sed) [#/Area] Innumerable [HPF] High 0-4 [facility] Leukocytes [#/volume] correc suzi for nucleated erythrocytes in Blood by Automated counOrdered By: Da Lozano on 03-03-2025 WBC corrected for nucl RBC Auto (Bld) [#/Vol] 10.2 10*3/uL 3.8-11.6 [facility] Leukocytes [#/volume] in Blo od by Automated countOrdered By: Da Lozano on 03-03-2025 WBC (Bld) [#/Vol] 10.2 10*3/uL Normal 3.8-11.6 [facility] Comment on above: Performed By: #### C BC, BMP ####[facility] [address] [place] [address] [place]#### FRUC ####[facility] , Lymphocytes [#/volume] in Bl ood by Automated countOrdered By: Da Lozano on 03-03-2025 Lymphocytes (Bld) [#/Vol] 2.1 10*3/uL Normal 1.00-4.8 [facility] Comment on above: Performed By: #### C BC, BMP ####[place] [address] [place]#### FRUC ####[facility] , Lymphocytes/100 leukocytes i n Blood by Automated countOrdered By: Da Lozano on 03-03-2025 Lymphocytes/100 WBC (Bld) 21.0 % Normal . [facility] Comment on above: Performed By: #### C BC, BMP ####[place] [address] [place]#### FRUC ####[facility] , MCH [Entitic mass] by Automa suzi countOrdered By: Da Lozano on 03-03-2025 MCH (RBC) [Entitic mass] 32.8 pg Normal 24.7-34.3 [facility] Comment on above: Performed By: #### C BC, BMP ####[place] [address] [place]#### FRUC ####[facility] , MCHC Auto (RBC) [Mass/Vol]Or dered By: Da Lozano on 03-03-2025 MCHC (RBC) [Mass/Vol] 32.5 g/dL 32.0-35.0 [facility] MCV [Entitic volume] by Auto mated countOrdered By: Da Lozano on 03-03-2025 MCV (RBC) [Entitic vol] 100.8 fL High 80-100 [facility] Comment on above: Performed By: #### C BC, BMP ####[place] [address] [place]#### FRUC ####[facility] , Monocytes [#/volume] in Bloo d by Automated countOrdered By: Da Lozano on 03-03-2025 Monocytes (Bld) [#/Vol] 0.9 10*3/uL High 0.0-0.8 [facility] Comment on above: Performed By: #### C BC, BMP ####[place] [address] [place]#### FRUC ####[facility] , Monocytes/100 leukocytes in Blood by Automated countOrdered By: Da Lozano on 03-03-2025 Monocytes/100 WBC (Bld) 8.4 % Normal . [facility] Comment on above: Performed By: #### C BC, BMP ####[address]#### FRUC ####[facility] , Mucus [Presence] in Urine by AutomatedOrdered By: Da Lozano on 03-03-2025 Mucus Auto Ql (U) Rare [LPF] [facility] Neutrophils [#/volume] in Bl ood by Automated countOrdered By: Da Lozano on 03-03-2025 Neutrophils (Bld) [#/Vol] 6.8 10*3/uL Normal 1.8-7.7 [facility] Comment on above: Performed By: #### C BC, BMP ####[place] [address] [place]#### FRUC ####[facility] , Neutrophils/100 leukocytes i n Blood by Automated countOrdered By: Da Lozano on 03-03-2025 Neutrophils/100 WBC (Bld) 67.0 % Normal . [facility] Comment on above: Performed By: #### C BC, BMP ####[place] [address] [place]#### FRUC ####[facility] , Nitrite Test strip Ql (U)Ord ered By: Da Lozano on 03-03-2025 Nitrite Ql (U) Negative Negative [facility] No Panel InformationOrdered By: Da Lozano on 03-03-2025 Pharmacy Creatinine Clearance (Chem N/A [facility] N/A [facility] Nucleated erythrocytes [Pres ence] in Blood by Automated countOrdered By: Da Lozano on 03-03-2025 Nucleated RBC Auto Ql (Bld) 0.1 /100{WBC} 0-0.5 [facility] Platelet mean volume [Entiti c volume] in Blood by Automated countOrdered By: Da Lozano on 03-03-2025 Platelet mean volume (Bld) [Entitic vol] 9.2 fL Normal 6.3-10.7 [facility] Comment on above: Performed By: #### C BC, BMP ####[address]#### FRUC ####[facility] , Platelets [#/volume] in Bloo d by Automated countOrdered By: Da Lozano on 03-03-2025 Platelets (Bld) [#/Vol] 220 10*3/uL Normal 150-450 [facility] Comment on above: Performed By: #### C NANCY, BMP ####[place] [id number] [address]#### FRUC ####[facility] , Potassium [Moles/volume] in Serum or PlasmaOrdered By: Da Lozano on 03-03-2025 Potassium [Moles/Vol] 4.9 mmol/L Normal 3.5-5.1 [facility] Comment on above: Performed By: #### C BC, BMP ####[place] [id number] [place] [address] [place]#### FRUC ####[facility] , Protein [Mass/volume] in Uri ne by Test stripOrdered By: Da Lozano on 03-03-2025 Protein (U) [Mass/Vol] 100 mg/dL Normal Negative [facility] Comment on above: Order Comment: Name Collection Type:: Clean-Voided Midstream Performed By: #### C UU, ADDONUAPLUS ####[address] Serum or plasma anion gap de terminationOrdered By: Da Lozano on 03-03-2025 Anion gap [Moles/Vol] 10.3 mmol/L Normal 6.0-15.0 [facility] Comment on above: Performed By: #### C BC, BMP ####[address]#### FRUC ####[facility] , Sodium [Moles/volume] in Ser um or PlasmaOrdered By: Da Lozano on 03-03-2025 Sodium [Moles/Vol] 138 mmol/L Normal 136-[address] [facility] Comment on above: Performed By: #### C BC, BMP ####[address]#### FRUC ####[facility] , Specific gravity Test strip (U) [Rel density]Ordered By: Da Lozano on 03-03-2025 Specific gravity (U) [Rel density] 1.012 1.001-1.030 [facility] Urea nitrogen [Mass/volume] in Serum or PlasmaOrdered By: Da Lozano on 03-03-2025 Urea nitrogen [Mass/Vol] 46 mg/dL High 7-25 [facility] Comment on above: Performed By: #### C BC, BMP ####[address]#### FRUC ####[facility] , Urine Cultureon 03-03-2025 Bacteria identified Cx Nom (U) Urine Culture Results >100,000 col/ml Mixed Bacterial Skin Contaminants 2 Days PERFORMED BY: [facility] [address] [place] [address] PATHOLOGIST SPECIALTY FINISHING UT[employer] PERSON ALINA PADILLA M.D. Normal [facility] Comment on above: Performed By: #### C UU, ADDONUAPLUS ####[facility] [address] [place] [id number] [facility] Urine cultureOrdered By: Landon Lozano on 03-03-2025 Bacteria identified Cx Nom (U) [facility] Urobilinogen Test strip (U) [Mass/Vol]Ordered By: Da Lozano on 03-03-2025 Urobilinogen (U) [Mass/Vol] Normal mg/dL Normal [facility] pH of Urine by Test stripOrd ered By: Da Lozano on 03-03-2025 pH (U) 7.0 [pH] Normal 5.0-9.0 [facility] Comment on above: Order Comment: Name Collection Type:: Clean-Voided Midstream Performed By: #### C UU, ADDONUAPLUS ####[facility] [id number] [place] [id number] [facility] Erythrocyte distribution wid th Auto (RBC) [Ratio]Ordered By: Leroy Ashby on 02-07-2025 Erythrocyte distribution width (RBC) [Ratio] 15.5 % High 11.0-15.0 [facility] Estimated glomerular filtrat ion rate (GFR) non- AmericanOrdered By: Leroy Ashby on 02-07-2025 GFR/1.73 sq M.predicted among non-blacks MDRD (S/P/Bld) [Vol rate/Area] 26 mL/min/{1.73_m2} Low >=60 mL/min/1.73m 2 [facility] Hematocrit Auto (Bld) [Volum e fraction]Ordered By: Leroy Ashby on 02-07-2025 Hematocrit (Bld) [Volume fraction] 36.6 % 36.0-48.0 [facility] Hemoglobin [Mass/volume] in BloodOrdered By: Leroy Ashby on 02-07-2025 Hemoglobin (Bld) [Mass/Vol] 11.5 g/dL Low 12.0-16.0 [facility] Iron binding capacity [Mass/ volume] in Serum or PlasmaOrdered By: Leroy Ashby on 02-07-2025 Iron binding capacity [Mass/Vol] 211.0 ug/dL Low 250.0-450.0 [facility] Iron saturation [Mass Fracti on] in Serum or PlasmaOrdered By: Leroy Ashby on 02-07-2025 Iron saturation [Mass fraction] 19.4 % [facility] Laboratory - Chemistry and C hemistry - challengeOrdered By: Leroy Ashby on 02-07-2025 Albumin [Mass/Vol] 2.8 g/dL Low 3.4-5.[address] [facility] Calcium [Mass/Vol] 9.5 mg/dL 8.5-10.[address] [facility] Chloride [Moles/Vol] 98 mmol/L 98-107 [facility] CO2 [Moles/Vol] 28.7 mmol/L 21.0-32.0 [facility] Creatinine [Mass/Vol] 1.88 mg/dL High 0.55-1.02 [facility] Ferritin [Mass/Vol] 187.0 ng/mL 8.0-252.0 [facility] GFR/1.73 sq M.predicted MDRD (S/P/Bld) [Vol rate/Area] 31 mL/min/{1.73_m2} Low >=60 mL/min/1.73m 2 [facility] Glucose [Mass/Vol] 206 mg/dL High 74-[address] [facility] Iron [Mass/Vol] 41.0 ug/dL Low 50.0-170.0 [facility] Potassium [Moles/Vol] 4.1 mmol/L 3.5-5.1 [facility] Sodium [Moles/Vol] 135 mmol/L Low 136-[address] [facility] Urate [Mass/Vol] 3.8 mg/dL 2.6-6.0 [facility] Urea nitrogen [Mass/Vol] 59.0 mg/dL High 7.0-18.0 [facility] Urea nitrogen/Creatinine [Mass ratio] 31.4 mg/mg [facility] Bilirubin Ql (U) Negative NEGATIVE [facility] Glucose (U) [Mass/Vol] Negative NEGATIVE [facility] Ketones Ql (U) Negative NEGATIVE [facility] pH (U) 6.5 [pH] 5.0-9.0 [facility] Specific gravity (U) [Rel density] 1.015 1.005-1.025 [facility] Laboratory - Specimen inform ationOrdered By: Leroy Ashby on 02-07-2025 Appearance (U) CLOUDY Abnormal CLEAR [facility] Color (U) BROWN Abnormal YELLOW [facility] Laboratory - UrinalysisOrder ed By: Leroy Ashby on 02-07-2025 Leukocyte esterase Test strip Ql (U) LARGE Abnormal NEGATIVE [facility] Mucus Ql (Urine sed) TRACE Abnormal NONE SEEN [facility] Nitrite Ql (U) Negative NEGATIVE [facility] Protein (U) [Mass/Vol] 136.2 mg/dL High <=11.9 [facility] Protein Ql (U) 300 mg/dL Abnormal NEG/TRACE [facility] Leukocytes [#/volume] correc suzi for nucleated erythrocytes in Blood by Automated counOrdered By: Leroy Ashby on 02-07-2025 WBC corrected for nucl RBC Auto (Bld) [#/Vol] 10.6 10 3/uL 4.0-11.0 [facility] MCH Auto (RBC) [Entitic mass ]Ordered By: Leroy Ashby on 02-07-2025 MCH (RBC) [Entitic mass] 31.9 pg 26.7-34.0 [facility] MCHC Auto (RBC) [Mass/Vol]Or dered By: Leroy Ashby on 02-07-2025 MCHC (RBC) [Mass/Vol] 31.4 g/dL 29.9-35.2 [facility] MCV Auto (RBC) [Entitic vol] Ordered By: Leroy Ashby on 02-07-2025 MCV (RBC) [Entitic vol] 101.4 fL High 81.0-99.0 [facility] No Panel InformationOrdered By: Leroy Ashby on 02-07-2025 25-Hydroxy Vitamin D Total 72.5 ng/mL [facility] Comment on above: <20 ng/mL Vit D defi cient20-<30 ng/mL Vit D [id number] ng/mL Vit D sufficient>100 ng/mL Potential Toxicity Parathyroid Hormone (Intact) 43 pg/mL 15-65 [facility] Comment on above: Performed at: [facility] - [employer] [address], [place], [place] [id number] Director: Mohan Talbert PhD, Phone: [phone] Phosphorus Level 4.2 mg/dL 2.6-4.7 [facility] 43 pg/mL [facility] 72.5 ng/mL [facility] 187.0 ng/mL 8.0-252.0 [facility] 3.8 mg/dL 2.6-6.0 [facility] 41.0 ug/dL Low 50.0-170.0 [facility] 2.8 g/dL Low 3.4-5.0 [facility] 31.4 [facility] 59.0 mg/dL High 7.0-18.0 [facility] 9.5 mg/dL 8.5-10.1 [facility] 98 mmol/L 98-107 [facility] 28.7 mmol/L 21.0-32.0 [facility] 1.88 mg/dL High 0.55-1.02 [facility] 31 Low >=60 mL/min/1.73m 2 [facility] 206 mg/dL High 74-106 [facility] 4.1 mmol/L 3.5-5.1 [facility] 135 mmol/L Low 136-145 [facility] 4.2 mg/dL 2.6-4.7 [facility] Urine Bacteria LARGE #/HPF Abnormal NONE SEEN [facility] Urine Occult Blood LARGE Abnormal NEGATIVE [facility] Urine Other Casts NONE SEEN #/LPF NONE SEEN [facility] Urine Other Crystals None Seen #/HPF None Seen [facility] Urine Random Creatinine 24.06 mg/dL 20.00-300.00 [facility] Urine RBC 5-10 #/HPF Abnormal 0-2 [facility] Urine Squamous Epithelial Cells FEW #/LPF Abnormal NONE/RARE [facility] Urine Transitional Epithelial Cells RARE #/LPF Abnormal NONE SEEN [facility] Urine Urobilinogen N EU/dL 0.2-1.[address] [facility] Urine WBC 75-100 #/HPF Abnormal NONE SEEN [facility] NONE SEEN #/LPF NONE SEEN [facility] 24.06 mg/dL 20.00-300.00 [facility] None Seen #/HPF None Seen [facility] LARGE #/HPF Abnormal NONE SEEN [facility] 136.2 mg/dL High <=11.9 [facility] Negative NEGATIVE [facility] LARGE Abnormal NEGATIVE [facility] CLOUDY Abnormal CLEAR [facility] BROWN Abnormal YELLOW [facility] TRACE Abnormal NONE SEEN [facility] 6.5 5.0-9.0 [facility] 300 mg/dL Abnormal NEG/TRACE [facility] 5-10 #/HPF Abnormal 0-2 [facility] 1.015 1.005-1.025 [facility] FEW #/LPF Abnormal NONE/RARE [facility] RARE #/LPF Abnormal NONE SEEN [facility] N EU/dL 0.2-1.0 [facility] 75-100 #/HPF Abnormal NONE SEEN [facility] Platelet mean volume Auto (B ld) [Entitic vol]Ordered By: Leroy Ashby on 02-07-2025 Platelet mean volume (Bld) [Entitic vol] 11.7 fL 9.5-13.5 [facility] Platelets Auto (Bld) [#/Vol] Ordered By: Leroy Ashby on 02-07-2025 Platelets (Bld) [#/Vol] 213 10 3/uL 150-450 [facility] RBC Auto (Bld) [#/Vol]Ordere d By: Leroy Ashby on 02-07-2025 RBC (Bld) [#/Vol] 3.61 10 6/uL Low 4.20-5.40 [facility] Serum or plasma anion gap de terminationOrdered By: Leroy Ashby on 02-07-2025 Anion gap [Moles/Vol] 12.4 mmol/L [facility] Urine protein/creatinine rat ioOrdered By: Leroy Ashby on 02-07-2025 Protein/Creatinine (U) [Ratio] 5.66 [facility] Glucose mean value [Mass/vol ume] in Blood Estimated from glycated hemoglobinOrdered By: Da Lozano on 01-25-2025 Average glucose Estimated from glycated hemoglobin (Bld) [Mass/Vol] 160 mg/dL [facility] Hemoglobin A1c percentageOrd ered By: Da Lozano on 01-25-2025 HbA1c (Bld) [Mass fraction] 7.2 % High 4.5-6.2 [facility] Comment on above: ADA RECOMMENDED LIMI T 4.0 - 6.0ADA THERAPEUTIC TARGET < 7.0ACTION SUGGESTED> 7.0 Hemoglobin [Mass/volume] in BloodOrdered By: Da Lozano on 01-25-2025 Hemoglobin (Bld) [Mass/Vol] 11.8 g/dL Low 12.0-16.0 [facility] Laboratory - Chemistry and C hemistry - challengeOrdered By: Da Lozano on 01-25-2025 Albumin [Mass/Vol] 2.7 g/dL Low 3.4-5.[address] [facility] No Panel InformationOrdered By: Da Lozano on 01-25-2025 25-Hydroxy Vitamin D Total 62.6 ng/mL [facility] Comment on above: <20 ng/mL Vit D defi cient20-<30 ng/mL Vit D [id number] ng/mL Vit D sufficient>100 ng/mL Potential Toxicity Miscellaneous Test COMMENT . [facility] Comment on above: Test Ordered: [id number] Nicotine and Metabolite, QuantNicotine <1.0 ng/mL Reference Range: .This test was developed and its performance characteristicsdetermined by [employer]. It has not been cleared orapproved by the Food and Drug Administration.Nicotine levels greater than 2.0 are consistent with theuse of tobacco or tobacco cessation products.Cotinine <1.0 ng/mL Reference Range: .This test was developed and its performance characteristicsdetermined by [employer]. It has not been cleared orapproved by the Food and Drug Administration.Cotinine levels greater than 20.0 are consistent with theuse of tobacco or tobacco cessation products.Performed at: [address] [id number] Director: Navneet Carcamo MD, Phone: [phone] at: CB - [facility] [id number] [place], [place] [id number] Director: Mohan Talbert PhD, Phone: [phone] COMMENT . [facility] 62.6 ng/mL [facility] 2.7 g/dL Low 3.4-5.0 [facility] HbA1c HPLC (Bld) [Mass fract ion]Ordered By: Stefan Best on 01-11-2025 HbA1c (Bld) [Mass fraction] 7.6 % [facility] Laboratory - Chemistry and C hemistry - challengeon 11-15-2024 Bilirubin Ql (U) Negative [facility] Glucose (U) [Mass/Vol] Negative [facility] Ketones Ql (U) Negative [facility] pH (U) 6.5 [pH] [facility] Specific gravity (U) [Rel density] 1.005 [facility] Urobilinogen (U) [Mass/Vol] 0.2 mg/dL [facility] Laboratory - Specimen inform ationon 11-15-2024 Appearance (U) cloudy [facility] Color (U) Yellow [facility] Laboratory - Urinalysison Leukocyte esterase Test strip Ql (U) +++ [facility] Nitrite Ql (U) Negative [facility] Protein Ql (U) +++ [facility] No Panel Informationon 11-15 Urine Occult Blood ++ [facility] Urine Cultureon 11-15-2024 Bacteria identified Cx Nom (U) Normal [facility] Comment on above: Performed By: #### C UU ####[facility] [id number] [place] [id number] [facility] Urine cultureOrdered By: Sulema Best on 11-15-2024 Bacteria identified Cx Nom (U) 2 Days [facility] Capillary blood glucose lei urement by glucometer (mass/volume)Ordered By: Yaniv Natarajan on 10-22-2024 Glucose [Mass/Vol] 172 mg/dL Normal [facility] Comment on above: Random Glucose Refer ence Range is dependent on time and content of last meal. Glucose of more than 200 mg/dL in a nonstressed, ambulatory subject supports the diagnosis of Diabetes Mellitus. Result Comment: [place] om Glucose Reference Range is dependent on time and content of last meal. Glucose of more than 200 mg/dL in a nonstressed, ambulatory subject supports the diagnosis of Diabetes Mellitus. Performed By: #### G LULS ####Point of Care testing, Glucose Glucometer (BldC) [M ass/Vol]Ordered By: Yaniv Natarajan on 10-22-2024 Glucose [Mass/Vol] Capillary blood glucose measurement by glucometer (mass/volume) [facility] Comment on above: Random Glucose Refer ence Range is dependent on time and content of last meal. Glucose of more than 200 mg/dL in a nonstressed, ambulatory subject supports the diagnosis of Diabetes Mellitus. Glucose Poct Glucometerson 0 10-22-2024 Commemt1 Glu2: Cleaned Meter Normal [facility] Comment on above: Result Comment: PERF ORMED BY:[place] [address] [place], [place] [phone] MEDICAL DIRECTORRADHA DURAN M.D. Performed By: #### G LULS ####Point of Care testing, Commemt1 Normal [facility] Comment on above: Result Comment: Glu2 : WILL NOTIFY DR/LIANE Performed By: #### G LULS ####Point of Care testing, Commemt2 Cleaned Meter Normal [facility] Comment on above: Result Comment: PERF ORMED BY:[place] [address] [place], [place] [phone] MEDICAL DIRECTORRADHA DURAN M.D. Performed By: #### G LULS ####Point of Care testing, Glucose [Mass/Vol] 217 mg/dL Normal [facility] Comment on above: Result Comment: [place] om Glucose Reference Range is dependent on time and content of last meal. Glucose of more than 200 mg/dL in a nonstressed, ambulatory subject supports the diagnosis of Diabetes Mellitus. Performed By: #### G LULS ####Point of Care testing, No Panel InformationOrdered By: Yaniv Natarajan on 10-22-2024 Bedside Glucose Comment Glu2: cleaned meter [facility] Bedside Glucose #2 Comment Cleaned meter [facility] X-ray reportOrdered By: Andrea Iraheta on 10-22-2024 Study report [facility] [employer] [address] [place] [id number] XRay Report Signed Patient: Lexi Tatum MR#: [id number] : 1945 Acct:[id number] Age/Sex: 79 / F ADM Date: 5 Loc: [place] Room: Type: [facility] Attending Dr: Yaniv Natarajan MD Copies to: [...] CALCULUS. Impression dictated by: Earnest Iraheta Jr., DPaulOPaul10/22/2024 8:55 AM Dictation Location: [place] [address] Transcribed By: [facility] 10/22/24 0855 Dictated By: Earnest Iraheta Jr, DO 10/22/24 0854 Signed By: 10/22/24 0855 [facility] XR KUBon 10-22-2024 XR KUB Normal [facility] XR KUB Normal [facility] Basophils Auto (Bld) [#/Vol] on 09-27-2024 Basophils (Bld) [#/Vol] Automated basophil count 0.0-0.1 [facility] Basophils/100 WBC Auto (Bld) on 09-27-2024 Basophils/100 WBC (Bld) Automated basophil % 0.2-2.0 [facility] Eosinophils/100 WBC Auto (Bl d)on 09-27-2024 Eosinophils/100 WBC (Bld) Automated eosinophil % Low 0.9-7.0 [facility] Erythrocyte distribution wid th Auto (RBC) [Ratio]on 09-27-2024 Erythrocyte distribution width (RBC) [Ratio] Erythrocyte distribution width [Ratio] by Automated count High 11.0-15.0 [facility] Estimated glomerular filtrat ion rate (GFR) non- Americanon 09-27-2024 GFR/1.73 sq M.predicted among non-blacks MDRD (S/P/Bld) [Vol rate/Area] Estimated glomerular filtration rate (GFR) non- Low >=60 mL/min/1.73m 2 [facility] Globulin Calc (S) [Mass/Vol] on 09-27-2024 Globulin (S) [Mass/Vol] Serum globulin measurement by calculation (mass/volume) [facility] Glucose mean value [Mass/vol ume] in Blood Estimated from glycated hemoglobinon 09-27-2024 Average glucose Estimated from glycated hemoglobin (Bld) [Mass/Vol] Glucose mean value [Mass/volume] in Blood Estimated from glycated hemoglobin [facility] Hematocrit Auto (Bld) [Volum e fraction]on 09-27-2024 Hematocrit (Bld) [Volume fraction] Hematocrit [Volume Fraction] of Blood by Automated count Low 36.0-48.0 [facility] Hemoglobin A1c percentageon 09-27-2024 HbA1c (Bld) [Mass fraction] Hemoglobin A1c percentage High 4.5-6.2 [facility] Comment on above: ADA RECOMMENDED LIMI T 4.0 - 6.0ADA THERAPEUTIC TARGET < 7.0ACTION SUGGESTED> 7.0 Hemoglobin [Mass/volume] in Bloodon 09-27-2024 Hemoglobin (Bld) [Mass/Vol] Hemoglobin [Mass/volume] in Blood Low 12.0-16.0 [facility] Laboratory - Chemistry and C hemistry - challengeon 09-27-2024 Albumin [Mass/Vol] 2.3 g/dL Low 3.4-5.[address] [facility] ALP [Catalytic activity/Vol] 52 U/L 46-116 [facility] ALT [Catalytic activity/Vol] U/L Low 14-59 [facility] AST [Catalytic activity/Vol] 9 U/L Low 15-37 [facility] Bilirubin [Mass/Vol] 0.3 mg/dL 0.2-1.0 [facility] Calcium [Mass/Vol] 8.8 mg/dL 8.5-10.[address] [facility] Chloride [Moles/Vol] 105 mmol/L 98-107 [facility] CO2 [Moles/Vol] 26.7 mmol/L 21.0-32.0 [facility] Creatinine [Mass/Vol] 1.85 mg/dL High 0.55-1.02 [facility] GFR/1.73 sq M.predicted MDRD (S/P/Bld) [Vol rate/Area] 32 mL/min/{1.73_m2} Low >=60 mL/min/1.73m 2 [facility] Glucose [Mass/Vol] 153 mg/dL High 74-[address] [facility] Magnesium [Mass/Vol] 2.0 mg/dL 1.8-2.4 [facility] Potassium [Moles/Vol] 3.7 mmol/L 3.5-5.1 [facility] Protein [Mass/Vol] 6.3 g/dL Low 6.4-8.[address] [facility] Sodium [Moles/Vol] 141 mmol/L 136-[address] [facility] Urea nitrogen [Mass/Vol] 53.0 mg/dL High 7.0-18.0 [facility] Urea nitrogen/Creatinine [Mass ratio] 28.6 mg/mg [facility] Laboratory - Hematology and Cell countson 09-27-2024 Immature granulocytes/100 WBC (Bld) 0.4 % 0.0-0.5 [facility] Leukocytes [#/volume] correc suzi for nucleated erythrocytes in Blood by Automated counon 09-27-2024 WBC corrected for nucl RBC Auto (Bld) [#/Vol] Leukocytes [#/volume] corrected for nucleated erythrocytes in Blood by Automated coun High 4.0-11.0 [facility] Lymphocytes Auto (Bld) [#/Vo l]on 09-27-2024 Lymphocytes (Bld) [#/Vol] Lymphocytes [#/volume] in Blood by Automated count 1.2-3.8 [facility] Lymphocytes/100 WBC Auto (Bl d)on 09-27-2024 Lymphocytes/100 WBC (Bld) Lymphocytes/100 leukocytes in Blood by Automated count Low 20.5-60.0 [facility] MCH Auto (RBC) [Entitic mass ]on 09-27-2024 MCH (RBC) [Entitic mass] MCH [Entitic mass] by Automated count 26.7-34.0 [facility] MCHC Auto (RBC) [Mass/Vol]on 09-27-2024 MCHC (RBC) [Mass/Vol] MCHC [Mass/volume] by Automated count 29.9-35.2 [facility] MCV Auto (RBC) [Entitic vol] on 09-27-2024 MCV (RBC) [Entitic vol] MCV [Entitic volume] by Automated count High 81.0-99.0 [facility] Monocytes Auto (Bld) [#/Vol] on 09-27-2024 Monocytes (Bld) [#/Vol] Automated blood monocyte count High 0.3-0.8 [facility] Monocytes/100 WBC Auto (Bld) on 09-27-2024 Monocytes/100 WBC (Bld) Automated monocyte % 1.7-12.0 [facility] Neutrophils Auto (Bld) [#/Vo l]on 09-27-2024 Neutrophils (Bld) [#/Vol] Neutrophils [#/volume] in Blood by Automated count High 1.4-6.5 [facility] Neutrophils/100 WBC Auto (Bl d)on 09-27-2024 Neutrophils/100 WBC (Bld) Automated neutrophil % 43.0-75.0 [facility] No Panel Informationon 09-27 Eosinophils # (Auto) 0.1 10 3/uL 0.0-0.7 [facility] Immature Granulocyte # (Auto) 0.04 10 3/uL High 0.00-0.03 [facility] Platelet mean volume Auto (B ld) [Entitic vol]on 09-27-2024 Platelet mean volume (Bld) [Entitic vol] Platelet mean volume [Entitic volume] in Blood by Automated count 9.5-13.5 [facility] Platelets Auto (Bld) [#/Vol] on 09-27-2024 Platelets (Bld) [#/Vol] Platelets [#/volume] in Blood by Automated count 150-450 [facility] RBC Auto (Bld) [#/Vol]on RBC (Bld) [#/Vol] Erythrocytes [#/volume] in Blood by Automated count Low 4.20-5.40 [facility] Serum or plasma albumin/glob ulin mass ratioon 09-27-2024 Albumin/Globulin [Mass ratio] Serum or plasma albumin/globulin mass ratio [facility] Serum or plasma anion gap de terminationon 09-27-2024 Anion gap [Moles/Vol] Serum or plasma anion gap determination [facility] Basophils Auto (Bld) [#/Vol] on 09-26-2024 Basophils (Bld) [#/Vol] Automated basophil count 0.0-0.1 [facility] Basophils/100 WBC Auto (Bld) on 09-26-2024 Basophils/100 WBC (Bld) Automated basophil % 0.2-2.0 [facility] Eosinophils/100 WBC Auto (Bl d)on 09-26-2024 Eosinophils/100 WBC (Bld) Automated eosinophil % 0.9-7.0 [facility] Erythrocyte distribution wid th Auto (RBC) [Ratio]on 09-26-2024 Erythrocyte distribution width (RBC) [Ratio] Erythrocyte distribution width [Ratio] by Automated count High 11.0-15.0 [facility] Estimated glomerular filtrat ion rate (GFR) non- Americanon 09-26-2024 GFR/1.73 sq M.predicted among non-blacks MDRD (S/P/Bld) [Vol rate/Area] Estimated glomerular filtration rate (GFR) non- Low >=60 mL/min/1.73m 2 [facility] Hematocrit Auto (Bld) [Volum e fraction]on 09-26-2024 Hematocrit (Bld) [Volume fraction] Hematocrit [Volume Fraction] of Blood by Automated count 36.0-48.0 [facility] Hemoglobin [Mass/volume] in Bloodon 09-26-2024 Hemoglobin (Bld) [Mass/Vol] Hemoglobin [Mass/volume] in Blood Low 12.0-16.0 [facility] Laboratory - Chemistry and C hemistry - challengeon 09-26-2024 Calcium [Mass/Vol] 9.5 mg/dL 8.5-10.[address] [facility] Chloride [Moles/Vol] 100 mmol/L 98-107 [facility] CO2 [Moles/Vol] 27.9 mmol/L 21.0-32.0 [facility] Creatinine [Mass/Vol] 2.12 mg/dL High 0.55-1.02 [facility] GFR/1.73 sq M.predicted MDRD (S/P/Bld) [Vol rate/Area] 27 mL/min/{1.73_m2} Low >=60 mL/min/1.73m 2 [facility] Glucose [Mass/Vol] 205 mg/dL High 74-[address] [facility] Potassium [Moles/Vol] 4.7 mmol/L 3.5-5.1 [facility] Sodium [Moles/Vol] 137 mmol/L 136-[address] [facility] Urea nitrogen [Mass/Vol] 58.0 mg/dL High 7.0-18.0 [facility] Urea nitrogen/Creatinine [Mass ratio] 27.4 mg/mg [facility] Laboratory - Hematology and Cell countson 09-26-2024 Immature granulocytes/100 WBC (Bld) 0.7 % High 0.0-0.5 [facility] Leukocytes [#/volume] correc suzi for nucleated erythrocytes in Blood by Automated counon 09-26-2024 WBC corrected for nucl RBC Auto (Bld) [#/Vol] Leukocytes [#/volume] corrected for nucleated erythrocytes in Blood by Automated coun High 4.0-11.0 [facility] Lymphocytes Auto (Bld) [#/Vo l]on 09-26-2024 Lymphocytes (Bld) [#/Vol] Lymphocytes [#/volume] in Blood by Automated count 1.2-3.8 [facility] Lymphocytes/100 WBC Auto (Bl d)on 09-26-2024 Lymphocytes/100 WBC (Bld) Lymphocytes/100 leukocytes in Blood by Automated count Low 20.5-60.0 [facility] MCH Auto (RBC) [Entitic mass ]on 09-26-2024 MCH (RBC) [Entitic mass] MCH [Entitic mass] by Automated count 26.7-34.0 [facility] MCHC Auto (RBC) [Mass/Vol]on 09-26-2024 MCHC (RBC) [Mass/Vol] MCHC [Mass/volume] by Automated count 29.9-35.2 [facility] MCV Auto (RBC) [Entitic vol] on 09-26-2024 MCV (RBC) [Entitic vol] MCV [Entitic volume] by Automated count High 81.0-99.0 [facility] Monocytes Auto (Bld) [#/Vol] on 09-26-2024 Monocytes (Bld) [#/Vol] Automated blood monocyte count High 0.3-0.8 [facility] Monocytes/100 WBC Auto (Bld) on 09-26-2024 Monocytes/100 WBC (Bld) Automated monocyte % 1.7-12.0 [facility] Neutrophils Auto (Bld) [#/Vo l]on 09-26-2024 Neutrophils (Bld) [#/Vol] Neutrophils [#/volume] in Blood by Automated count High 1.4-6.5 [facility] Neutrophils/100 WBC Auto (Bl d)on 09-26-2024 Neutrophils/100 WBC (Bld) Automated neutrophil % 43.0-75.0 [facility] No Panel Informationon 09-26 Eosinophils # (Auto) 0.2 10 3/uL 0.0-0.7 [facility] Immature Granulocyte # (Auto) 0.10 10 3/uL High 0.00-0.03 [facility] Troponin I High Sensitivity 21.9 pg/mL 4.0-51.3 [facility] Comment on above: CUT-OFF POINTS HAVE BEEN [...] volume] in Blood by Automated count 9.5-13.5 [facility] Platelets Auto (Bld) [#/Vol] on 09-26-2024 Platelets (Bld) [#/Vol] Platelets [#/volume] in Blood by Automated count 150-450 [facility] RBC Auto (Bld) [#/Vol]on RBC (Bld) [#/Vol] Erythrocytes [#/volume] in Blood by Automated count Low 4.20-5.40 [facility] Serum or plasma anion gap de terminationon 09-26-2024 Anion gap [Moles/Vol] Serum or plasma anion gap determination [facility] Urine Cultureon 09-26-2024 Bacteria identified Cx Nom (U) Normal [facility] Comment on above: Performed By: #### C UU ####[facility] [id number] [place] [id number] [facility] Appearance of UrineOrdered B y: Leroy Ashby on 07-15-2024 Appearance (U) Urine appearance Abnormal Clear [facility] Bacteria [Presence] in Urine by AutomatedOrdered By: Leroy Ashby on 07-15-2024 Bacteria Auto Ql (U) Bacteria [Presence] in Urine by Automated High None Seen [facility] Bilirubin Test strip Ql (U)O rdered By: Leroy Ashby on 07-15-2024 Bilirubin Ql (U) Bilirubin.total [Presence] in Urine by Test strip Negative [facility] Color Auto (U)Ordered By: Ab carl Ashby on 07-15-2024 Color (U) Color of Urine by Auto Yellow [facility] Creatinine [Mass/volume] in UrineOrdered By: Leroy Ashby on 07-15-2024 Creatinine (U) [Mass/Vol] Creatinine [Mass/volume] in Urine [facility] Comment on above: No reference range e stablished Dipstick and Microscopicon 0 07-15-2024 Appearance (U) Cloudy Critically abnormal Clear [facility] Comment on above: Order Comment: Name Collection Type:: Voided Performed By: #### A DDONUAPLUS, CUU ####[address] [address] [facility] Bacteria,Urine 2+ High None Seen [facility] Comment on above: Order Comment: Name Collection Type:: Voided Performed By: #### A DDONUAPLUS, CUU ####[address] [address] [facility] Bilirubin,Urine Negative Normal Negative [facility] Comment on above: Order Comment: Name Collection Type:: Voided Performed By: #### A DDONUAPLUS, CUU ####[address] [address] [facility] Color (U) Colorless Normal Yellow [facility] Comment on above: Order Comment: Name Collection Type:: Voided Performed By: #### A DDONUAPLUS, CUU ####[place] [id number] [facility] Glucose Ql (U) Normal Normal Normal [facility] Comment on above: Order Comment: Name Collection Type:: Voided Performed By: #### A DDONUAPLUS, CUU ####[address] [address] [facility] Hyaline Casts,Urine 0 [LPF] Normal 0-8 [facility] Comment on above: Order Comment: Name Collection Type:: Voided Performed By: #### A DDONUAPLUS, CUU ####[address] [address] [facility] Ketones Ql (U) Negative Normal Negative [facility] Comment on above: Order Comment: Name Collection Type:: Voided Performed By: #### A DDONUAPLUS, CUU ####[address] [address] [facility] Leukocyte esterase Test strip Ql (U) 4+ High Negative [facility] Comment on above: Order Comment: Name Collection Type:: Voided Performed By: #### A DDONUAPLUS, CUU ####[place] [id number] [facility] Mucus,Urine Rare Normal [facility] Comment on above: Order Comment: Name Collection Type:: Voided Result Comment: PERF ORMED BY:[address] [place], [place] [phone] MEDICAL DIRECTORRADHA DURAN M.D. Performed By: #### A DDONUAPLUS, CUU ####[place] [id number] [facility] Nitrite,Urine Negative Normal Negative [facility] Comment on above: Order Comment: Name Collection Type:: Voided Performed By: #### A DDONUAPLUS, CUU ####[address] Occult Blood,Urine 1+ High Negative [facility] Comment on above: Order Comment: Name Collection Type:: Voided Performed By: #### A DDONUAPLUS, CUU ####[address] pH (U) 6.5 [pH] Normal 5.0-9.0 [facility] Comment on above: Order Comment: Name Collection Type:: Voided Performed By: #### A DDONUAPLUS, CUU ####[place] [phone] [facility] Protein (U) [Mass/Vol] 50 mg/dL High Negative [facility] Comment on above: Order Comment: Name Collection Type:: Voided Performed By: #### A DDONUAPLUS, CUU ####[place] [phone] [facility] RBC,Urine 5 [HPF] High 0-4 [facility] Comment on above: Order Comment: Name Collection Type:: Voided Performed By: #### A DDONUAPLUS, CUU ####[address] Specificy [place],Urine 1.009 Normal 1.001-1.030 [facility] Comment on above: Order Comment: Name Collection Type:: Voided Performed By: #### A DDONUAPLUS, CUU ####[place] [id number] [place] [id number] [facility] Squamous Epithelial Cell,Urine 3 [HPF] High 0-2 [facility] Comment on above: Order Comment: Name Collection Type:: Voided Performed By: #### A DDONUAPLUS, CUU ####[place] [id number] [place] [id number] [facility] Urobilinogen,Urine Normal Normal Normal [facility] Comment on above: Order Comment: Name Collection Type:: Voided Performed By: #### A DDONUAPLUS, CUU ####[place] [phone] [facility] WBC CLUMP, Urine Many High None Seen [facility] Comment on above: Order Comment: Name Collection Type:: Voided Performed By: #### A DDONUAPLUS, CUU ####[place] [phone] [facility] WBC,Urine Innumerable High 0-4 [facility] Comment on above: Order Comment: Name Collection Type:: Voided Performed By: #### A DDONUAPLUS, CUU ####[place] [id number] [facility] Epithelial cells.squamous [# /area] in Urine sediment by Automated countOrdered By: Leroy Ashby on 07-15-2024 Epithelial cells.squamous Auto (Urine sed) [#/Area] Epithelial cells.squamous [#/area] in Urine sediment by Automated count High 0-2 [facility] Erythrocytes [#/area] in Uri ne sediment by Automated countOrdered By: Leroy Ashby on 07-15-2024 RBC Auto (Urine sed) [#/Area] Erythrocytes [#/area] in Urine sediment by Automated count High 0-4 [facility] Glucose [Mass/volume] in Uri ne by Test stripOrdered By: Leroy Ashby on 07-15-2024 Glucose Test strip (U) [Mass/Vol] Glucose [Mass/volume] in Urine by Test strip Normal [facility] Hemoglobin Test strip Ql (U) Ordered By: Leroy Ashby on 07-15-2024 Hemoglobin Ql (U) Hemoglobin [Presence] in Urine by Test strip High Negative [facility] Hyaline casts [#/area] in Ur ine sediment by Automated countOrdered By: Leroy Ashby on 07-15-2024 Hyaline casts Auto (Urine sed) [#/Area] Hyaline casts [#/area] in Urine sediment by Automated count 0-8 [facility] Ketones Test strip Ql (U)Ord ered By: Leroy Ashby on 07-15-2024 Ketones Ql (U) Ketones [Presence] in Urine by Test strip Negative [facility] Leukocyte clumps [Presence] in Urine by AutomatedOrdered By: Leroy Ashby on 07-15-2024 Leukocyte clumps Auto Ql (U) Leukocyte clumps [Presence] in Urine by Automated High None Seen [facility] Leukocyte esterase [Presence ] in Urine by Test stripOrdered By: Leroy Ashby on 07-15-2024 Leukocyte esterase Test strip Ql (U) Leukocyte esterase [Presence] in Urine by Test strip High Negative [facility] Leukocytes [#/area] in Urine sediment by Automated countOrdered By: Leroy Ashby on 07-15-2024 WBC Auto (Urine sed) [#/Area] Leukocytes [#/area] in Urine sediment by Automated count High 0-4 [facility] Mucus [Presence] in Urine by AutomatedOrdered By: Leroy Ashby on 07-15-2024 Mucus Auto Ql (U) Mucus [Presence] in Urine by Automated [facility] Nitrite Test strip Ql (U)Ord ered By: Leroy Ashby on 07-15-2024 Nitrite Ql (U) Nitrite [Presence] in Urine by Test strip Negative [facility] Protein Creat Ratio Ur Rando mon 07-15-2024 Creatinine, Urine (Random) 25.00 mg/dL Normal [facility] Comment on above: Result Comment: No r eference range established Performed By: #### P ROCRERAT ####[facility] [id number] [place] [address] [facility] Protein (U) [Mass/Vol] 66 mg/dL High 0-9 [facility] Comment on above: Performed By: #### P ROCRERAT ####[address] [address] [facility] Urine Protein/Creatinine Ratio 2640 mg/g{Cre} High 0-200 [facility] Comment on above: Result Comment: PERF ORMED BY:[address] [place], [place] [phone] MEDICAL SAUL DURAN M.D. Performed By: #### P ROCRERAT ####[address] [address] [facility] Protein Test strip (U) [Mass /Vol]Ordered By: Leroy Isma on 07-15-2024 Protein (U) [Mass/Vol] Protein [Mass/volume] in Urine by Test strip High Negative [facility] Protein [Mass/volume] in Uri neOrdered By: Leroy Isma on 07-15-2024 Protein (U) [Mass/Vol] Protein [Mass/volume] in Urine High 0-9 [facility] Specific gravity Test strip (U) [Rel density]Ordered By: Leroy Isma on 07-15-2024 Specific gravity (U) [Rel density] Specific gravity of Urine by Test strip 1.001-1.030 [facility] Urine Cultureon 07-15-2024 Bacteria identified Cx Nom (U) Normal [facility] Comment on above: Performed By: #### A DDONUAPLUS, CUU ####[address] [address] [facility] Urine cultureOrdered By: Abd ul Isma on 07-15-2024 Bacteria identified Cx Nom (U) Urine culture [facility] Bacteria identified Cx Nom (U) Urine culture [facility] Urine protein/creatinine rat ioOrdered By: Leroy Isma on 07-15-2024 Protein/Creatinine (U) [Ratio] Urine protein/creatinine ratio High 0-200 [facility] Urobilinogen Test strip (U) [Mass/Vol]Ordered By: Leroy Isma on 07-15-2024 Urobilinogen (U) [Mass/Vol] Urobilinogen [Mass/volume] in Urine by Test strip Normal [facility] pH Test strip (U)Ordered By: Leroy Ashby on 07-15-2024 pH (U) pH of Urine by Test strip 5.0-9.0 [facility] A1C with Estimated Average G soto 06-28-2024 Glucose [Mass/Vol] 189 mg/dL Normal [facility] Comment on above: Result Comment: PERF ORMED BY:[address] [place], [place] [phone] MEDICAL DIRECTORRADHA DURAN M.D. Performed By: #### A [address] [facility] eA ####[place] [id number] [place] [address] [facility] HbA1c (Bld) [Mass fraction] 8.2 % High 4.3-5.6 [facility] Comment on above: Result Comment: Incr eased risk for diabetes: 5.7 - 6.4 diabetes: >6.4 glycemic control for adults with diabetes: <7.0 Performed By: #### A [address] [facility] eA ####[address] [address] [facility] Albumin [Mass/volume] in Ser um or Plasma by Bromocresol green (BCG) dye binding methoOrdered By: Leroy Ashby on 06-28-2024 Albumin BCG dye [Mass/Vol] Albumin [Mass/volume] in Serum or Plasma by Bromocresol green (BCG) dye binding metho 3.5-5.7 [facility] Blood estimated average gluc ose determination by estimation from glycated hemoglobinOrdered By: Da Lozano on 06-28-2024 Average glucose Estimated from glycated hemoglobin (Bld) [Mass/Vol] Glucose mean value [Mass/volume] in Blood Estimated from glycated hemoglobin [facility] Calcium [Mass/volume] in Ser um or PlasmaOrdered By: Lreoy Ashby on 06-28-2024 Calcium [Mass/Vol] Calcium [Mass/volume] in Serum or Plasma 8.6-10.3 [facility] Carbon dioxide, total [Moles /volume] in Serum or PlasmaOrdered By: Leroy Ashby on 06-28-2024 CO2 [Moles/Vol] Carbon dioxide, total [Moles/volume] in Serum or Plasma 21.0-31.0 [facility] Chloride [Moles/volume] in [place] or PlasmaOrdered By: Leroy Isma on 06-28-2024 Chloride [Moles/Vol] Chloride [Moles/volume] in Serum or Plasma 98-107 [facility] Creatinine [Mass/volume] in Serum or PlasmaOrdered By: Leroy Isma on 06-28-2024 Creatinine [Mass/Vol] Creatinine [Mass/volume] in Serum or Plasma High 0.60-1.20 [facility] Erythrocyte distribution wid th Auto (RBC) [Ratio]Ordered By: Leroy Isma on 06-28-2024 Erythrocyte distribution width (RBC) [Ratio] Erythrocyte distribution width [Ratio] by Automated count High 11.9-15.3 [facility] Ferritinon 06-28-2024 Ferritin [Mass/Vol] 96.0 ng/mL Normal 11.0-306.8 [facility] Comment on above: Performed By: #### I FE SERUM, SPE W INTERPRET, KAPPA ####[facility] ,#### [id number], [id number], FE and TIBC, RENAL, PTH, MG, URIC, ELIAS, CBCNO ####[facility] [id number] Ferritin [Mass/volume] in Se rum or PlasmaOrdered By: Leroy Isma on 06-28-2024 Ferritin [Mass/Vol] Ferritin [Mass/volume] in Serum or Plasma 11.0-306.8 [facility] Folate [Mass/volume] in Seru m or PlasmaOrdered By: Leroy Isma on 06-28-2024 Folate [Mass/Vol] Folate [Mass/volume] in Serum or Plasma >5.9 [facility] Comment on above: Folate reference ran ge: >5.9 ng/mlThe WHO technical consultation on folate and vitamin [id number] has determined that folate concentrations lessthan 4 ng/ml are considered deficient. Free K+L LT Chains, Qn, Son 06-28-2024 Free [place] Light Chains, S 113.1 mg/L High 3.3-19.4 [facility] Comment on above: Performed By: #### I FE SERUM, SPE W INTERPRET, KAPPA ####[facility] ,#### [id number], [id number], FE and TIBC, RENAL, PTH, MG, URIC, ELIAS, CBCNO ####[place] [id number] [place] [id number] [facility] Free [place] Light Chains, S 52.4 mg/L High 5.7-26.3 [facility] Comment on above: Performed By: #### I FE SERUM, SPE W INTERPRET, KAPPA ####[facility] ,#### [id number], [id number], FE and TIBC, RENAL, PTH, MG, URIC, ELIAS, CBCNO ####[place] [id number] [place] [id number] [facility] [place]/Lambda Ratio, S 2.16 High 0.26-1.65 [facility] Comment on above: Result Comment: Perf ormed at: CB - [facility] [place] [id number] Grocery Clerk Stocking: Mohan Talbert PhD, Phone: [phone] BY:[address] [place], [place] [phone] MEDICAL DIRECTORMOJERICA DURAN M.D. Performed By: #### I FE SERUM, SPE W INTERPRET, KAPPA ####[facility] ,#### [id number], [id number], FE and TIBC, RENAL, PTH, MG, URIC, ELIAS, CBCNO ####[place] [id number] [facility] Glucose [Mass/volume] in Ser um or PlasmaOrdered By: Leroy Ashby on 06-28-2024 Glucose [Mass/Vol] Glucose [Mass/volume] in Serum or Plasma High 70-100 [facility] Comment on above: ADA recommended refe rence rangeRandom Glucose Reference Range is dependent on time and content of last meal. Glucose of more than 200 mg/dL in a nonstressed, ambulatory subject supports the diagnosis of Diabetes Mellitus. Hematocrit Auto (Bld) [Volum e fraction]Ordered By: Leroy Ashby on 06-28-2024 Hematocrit (Bld) [Volume fraction] Hematocrit [Volume Fraction] of Blood by Automated count 34.0-46.4 [facility] Hemoglobin A1c/Hemoglobin.to nathen in BloodOrdered By: Da Lozano on 06-28-2024 HbA1c (Bld) [Mass fraction] Hemoglobin A1c percentage High 4.3-5.6 [facility] Comment on above: Increased risk for d iabetes: 5.7 - 6.4diabetes: >6.4glycemic control for adults with diabetes: <7.0 Hemoglobin [Mass/volume] in BloodOrdered By: Leroy Ashby on 06-28-2024 Hemoglobin (Bld) [Mass/Vol] Hemoglobin [Mass/volume] in Blood 11.8-15.4 [facility] Hemogram CBC Without Diffon 06-28-2024 Erythrocyte distribution width (RBC) [Ratio] 15.9 % High 11.9-15.3 [facility] Comment on above: Performed By: #### I FE SERUM, SPE W INTERPRET, KAPPA ####[facility] ,#### [id number], [id number], FE and TIBC, RENAL, PTH, MG, URIC, ELIAS, CBCNO ####[place] [id number] [place] [id number] [facility] Hematocrit (Bld) [Volume fraction] 37.6 % Normal 34.0-46.4 [facility] Comment on above: Performed By: #### I FE SERUM, SPE W INTERPRET, KAPPA ####[facility] ,#### [id number], [id number], FE and TIBC, RENAL, PTH, MG, URIC, ELIAS, CBCNO ####[place] [id number] [place] [id number] [facility] Hemoglobin (Bld) [Mass/Vol] 12.2 g/dL Normal 11.8-15.4 [facility] Comment on above: Performed By: #### I FE SERUM, SPE W INTERPRET, KAPPA ####[facility] ,#### [id number], [id number], FE and TIBC, RENAL, PTH, MG, URIC, ELIAS, CBCNO ####[address] MCH (RBC) [Entitic mass] 31.7 pg Normal 24.7-34.3 [facility] Comment on above: Performed By: #### I FE SERUM, SPE W INTERPRET, KAPPA ####[facility] ,#### [id number], [id number], FE and TIBC, RENAL, PTH, MG, URIC, ELIAS, CBCNO ####[address] MCV (RBC) [Entitic vol] 98.3 fL Normal 80-100 [facility] Comment on above: Performed By: #### I FE SERUM, SPE W INTERPRET, KAPPA ####[facility] ,#### [id number], [id number], FE and TIBC, RENAL, PTH, MG, URIC, ELIAS, CBCNO ####[address] Mean Corpuscular HGB Conc 32.3 g/dL Normal 32.0-35.0 [facility] Comment on above: Performed By: #### I FE SERUM, SPE W INTERPRET, KAPPA ####[facility] ,#### [id number], [id number], FE and TIBC, RENAL, PTH, MG, URIC, ELIAS, CBCNO ####[address] Platelet mean volume (Bld) [Entitic vol] 9.1 fL Normal 6.3-10.7 [facility] Comment on above: Result Comment: PERF ORMED BY:[address] [place], [place] [phone] MEDICAL DIRECTORMOHAMED M EL-FAKHARANY M.D. Performed By: #### I FE SERUM, SPE W INTERPRET, KAPPA ####[facility] ,#### [id number], [id number], FE and TIBC, RENAL, PTH, MG, URIC, ELIAS, CBCNO ####[place] [id number] Platelets (Bld) [#/Vol] 229 10*3/uL Normal 150-450 [facility] Comment on above: Performed By: #### I FE SERUM, SPE W INTERPRET, KAPPA ####[facility] ,#### [id number], [id number], FE and TIBC, RENAL, PTH, MG, URIC, ELIAS, CBCNO ####[address] RBC (Bld) [#/Vol] 3.83 10*6/uL Normal 3.60-5.00 [facility] Comment on above: Performed By: #### I FE SERUM, SPE W INTERPRET, KAPPA ####[facility] ,#### [id number], [id number], FE and TIBC, RENAL, PTH, MG, URIC, ELIAS, CBCNO ####[address] WBC (Bld) [#/Vol] 9.2 10*3/uL Normal 3.8-11.6 [facility] Comment on above: Performed By: #### I FE SERUM, SPE W INTERPRET, KAPPA ####[facility] ,#### [id number], [id number], FE and TIBC, RENAL, PTH, MG, URIC, ELIAS, CBCNO ####[place] [id number] [facility] Immunofixation,Serumon 06-28 Immunofixation, Serum Comment: Normal . [facility] Comment on above: Result Comment: Pres ence of monoclonal protein is unclear at this time. Suggest repeat in 3 to 6 months if clinically indicated. Performed By: #### I FE SERUM, SPE W INTERPRET, KAPPA ####[facility] ,#### [id number], [id number], FE and TIBC, RENAL, PTH, MG, URIC, ELIAS, CBCNO ####[place] [address] [place] [address] [facility] Immunoglobulin A, Serum 394 mg/dL Normal 64-422 [facility] Comment on above: Performed By: #### I FE SERUM, SPE W INTERPRET, KAPPA ####[facility] ,#### [id number], [id number], FE and TIBC, RENAL, PTH, MG, URIC, ELIAS, CBCNO ####[place] [address] [place] [address] [facility] Immunoglobulin G 1087 mg/dL Normal 586-1602 [facility] Comment on above: Performed By: #### I FE SERUM, SPE W INTERPRET, KAPPA ####[facility] ,#### [id number], [id number], FE and TIBC, RENAL, PTH, MG, URIC, ELIAS, CBCNO ####[id number] [place] [address] [facility] Immunoglobulin M, Serum 86 mg/dL Normal 26-217 [facility] Comment on above: Result Comment: Perf ormed at: - [facility] [address] [id number] Grocery Clerk Stocking: Mohan Talbert PhD, Phone: [phone] Performed By: #### I FE SERUM, SPE W INTERPRET, KAPPA ####[facility] ,#### [id number], [id number], FE and TIBC, RENAL, PTH, MG, URIC, ELIAS, CBCNO ####[address] [place] [address] [facility] Iron [Mass/volume] in Serum or PlasmaOrdered By: Leroy Ashby on 06-28-2024 Iron [Mass/Vol] Iron [Mass/volume] in Serum or Plasma 50-212 [facility] Iron and TIBC Profileon 06-13 % Iron Saturation 24.4 % Normal 20-50 [facility] Comment on above: Performed By: #### I FE SERUM, SPE W INTERPRET, KAPPA ####[facility] ,#### [id number], [id number], FE and TIBC, RENAL, PTH, MG, URIC, ELIAS, CBCNO ####[address] [place] [id number] [facility] Iron [Mass/Vol] 66 ug/dL Normal 50-212 [facility] Comment on above: Performed By: #### I FE SERUM, SPE W INTERPRET, KAPPA ####[facility] ,#### [id number], [id number], FE and TIBC, RENAL, PTH, MG, URIC, ELIAS, CBCNO ####[address] [place] [id number] [facility] Total Iron Binding Capacity 270 ug/dL Normal 255-450 [facility] Comment on above: Performed By: #### I FE SERUM, SPE W INTERPRET, KAPPA ####[facility] ,#### [id number], [id number], FE and TIBC, RENAL, PTH, MG, URIC, ELIAS, CBCNO ####[address] [place] [id number] [facility] Transferrin [Mass/Vol] 193 mg/dL Low 203-362 [facility] Comment on above: Performed By: #### I FE SERUM, SPE W INTERPRET, KAPPA ####[facility] ,#### [id number], [id number], FE and TIBC, RENAL, PTH, MG, URIC, ELIAS, CBCNO ####[place] [id number] [facility] Leukocytes [#/volume] correc suzi for nucleated erythrocytes in Blood by Automated counOrdered By: Leroy Ashby on 06-28-2024 WBC corrected for nucl RBC Auto (Bld) [#/Vol] Leukocytes [#/volume] corrected for nucleated erythrocytes in Blood by Automated coun 3.8-11.6 [facility] MCH Auto (RBC) [Entitic mass ]Ordered By: Leroy Ashby on 06-28-2024 MCH (RBC) [Entitic mass] MCH [Entitic mass] by Automated count 24.7-34.3 [facility] MCHC Auto (RBC) [Mass/Vol]Or dered By: Leroy Ashby on 06-28-2024 MCHC (RBC) [Mass/Vol] MCHC [Mass/volume] by Automated count 32.0-35.0 [facility] MCV Auto (RBC) [Entitic vol] Ordered By: Leroy Ashby on 06-28-2024 MCV (RBC) [Entitic vol] MCV [Entitic volume] by Automated count 80-100 [facility] Magnesiumon 06-28-2024 Magnesium [Mass/Vol] 1.9 mg/dL Normal 1.9-2.7 [facility] Comment on above: Performed By: #### I FE SERUM, SPE W INTERPRET, KAPPA ####[facility] ,#### [id number], [id number], FE and TIBC, RENAL, PTH, MG, URIC, ELIAS, CBCNO ####[facility] [id number] Magnesium [Mass/volume] in S pal[place] or PlasmaOrdered By: Leroy Ashby on 06-28-2024 Magnesium [Mass/Vol] Magnesium [Mass/volume] in Serum or Plasma 1.9-2.7 [facility] No Panel InformationOrdered By: Leroy Ashby on 06-28-2024 Estimated GFR (CKD-EPI) 36.998 mL/Min [facility] Creatinine Clearance (Chem N/A [facility] Protein Electrophoresis Interpret Comment . [facility] Comment on above: The SPE pattern demo nstrates elevation of regionscontaining acute phase proteins suggesting anacute/subacute inflammatory response. Some conditions inwhich this pattern has been observed include: bacterial,viral or parasitic infection; mechanical, physical orchemical trauma; and cardiac failure. The gamma globulinregion is unremarkable and evidence of monoclonal proteinis not apparent.Performed at: [facility] [employer] [id number] Director: Mohan Talbert PhD, Phone: [phone] Protein Electrophoresis M-Rafiq Not observed g/dL Not Observed [facility] Protein Electrophoresis Note Comment . [facility] Comment on above: Protein electrophore sis scan will follow via computer,mail, or fish worm grower delivery. Parathyrin.intact [Mass/volu me] in Serum or PlasmaOrdered By: Leroy Ashby on 06-28-2024 Parathyrin.intact [Mass/Vol] Parathyrin.intact [Mass/volume] in Serum or Plasma [facility] Parathyroid Hormone Intacton 06-28-2024 Parathyroid Hormone Intact 69.9 pg/mL Normal [facility] Comment on above: Result Comment: PERF ORMED BY:[facility] [place], [place] [phone] MEDICAL DIRECTORRADHA DURAN M.D. Performed By: #### I FE SERUM, SPE W INTERPRET, KAPPA ####[facility] ,#### [id number], [id number], FE and TIBC, RENAL, PTH, MG, URIC, ELIAS, CBCNO ####[facility] [id number] [place] [address] [facility] Phosphate [Mass/volume] in S paloma or PlasmaOrdered By: Leroy Ashby on 06-28-2024 Phosphate [Mass/Vol] Phosphate [Mass/volume] in Serum or Plasma 2.5-4.5 [facility] Platelet mean volume Auto (B ld) [Entitic vol]Ordered By: Leroy Akinsr on 06-28-2024 Platelet mean volume (Bld) [Entitic vol] Platelet mean volume [Entitic volume] in Blood by Automated count 6.3-10.7 [facility] Platelets Auto (Bld) [#/Vol] Ordered By: Leroy Isma on 06-28-2024 Platelets (Bld) [#/Vol] Platelets [#/volume] in Blood by Automated count 150-450 [facility] Potassium [Moles/volume] in Serum or PlasmaOrdered By: Leroy Ashby on 06-28-2024 Potassium [Moles/Vol] Potassium [Moles/volume] in Serum or Plasma 3.5-5.1 [facility] Prot Electrophoresis w/Inter christine 06-28-2024 Albumin [Mass/Vol] 3.1 g/dL Normal 2.9-4.4 [facility] Comment on above: Performed By: #### I FE SERUM, SPE W INTERPRET, KAPPA ####[facility] ,#### [id number], [id number], FE and TIBC, RENAL, PTH, MG, URIC, ELIAS, CBCNO ####[address] [place] [address] [facility] Albumin/Globulin [Mass ratio] 0.8 {ratio} Normal 0.7-1.7 [facility] Comment on above: Performed By: #### I FE SERUM, SPE W INTERPRET, KAPPA ####[facility] ,#### [id number], [id number], FE and TIBC, RENAL, PTH, MG, URIC, ELIAS, CBCNO ####[address] [address] [facility] Uemjd-9-Sxpvtvkp 0.3 g/dL Normal 0.0-0.4 [facility] Comment on above: Performed By: #### I FE SERUM, SPE W INTERPRET, KAPPA ####[facility] ,#### [id number], [id number], FE and TIBC, RENAL, PTH, MG, URIC, ELIAS, CBCNO ####[address] [address] [facility] Kwsuc-1-Ijkmvshd 1.3 g/dL High 0.4-1.0 [facility] Comment on above: Performed By: #### I FE SERUM, SPE W INTERPRET, KAPPA ####[facility] ,#### [id number], [id number], FE and TIBC, RENAL, PTH, MG, URIC, ELIAS, CBCNO ####[address] [address] [facility] Beta Globulin 1.1 g/dL Normal 0.7-1.3 [facility] Comment on above: Performed By: #### I FE SERUM, SPE W INTERPRET, KAPPA ####[facility] ,#### [id number], [id number], FE and TIBC, RENAL, PTH, MG, URIC, ELIAS, CBCNO ####[address] [address] [facility] Gamma Globulin 1.1 g/dL Normal 0.4-1.8 [facility] Comment on above: Performed By: #### I FE SERUM, SPE W INTERPRET, KAPPA ####[facility] ,#### [id number], [id number], FE and TIBC, RENAL, PTH, MG, URIC, ELIAS, CBCNO ####[address] [address] [facility] Globulin (S) [Mass/Vol] 3.7 g/dL Normal 2.2-3.9 [facility] Comment on above: Performed By: #### I FE SERUM, SPE W INTERPRET, KAPPA ####[facility] ,#### [id number], [id number], FE and TIBC, RENAL, PTH, MG, URIC, ELIAS, CBCNO ####[address] [address] [facility] M-Rafiq Not Observed Normal Not Observed [facility] Comment on above: Performed By: #### I FE SERUM, SPE W INTERPRET, KAPPA ####[facility] ,#### [id number], [id number], FE and TIBC, RENAL, PTH, MG, URIC, ELIAS, CBCNO ####[address] [address] [facility] Protein [Mass/Vol] 6.8 g/dL Normal 6.0-8.5 [facility] Comment on above: Performed By: #### I FE SERUM, SPE W INTERPRET, KAPPA ####[facility] ,#### [id number], [id number], FE and TIBC, RENAL, PTH, MG, URIC, ELIAS, CBCNO ####[address] SPE-Interpretation Comment Normal . [facility] Comment on above: Result Comment: The SPE pattern demonstrates elevation of regions containing acute phase proteins suggesting an acute/subacute inflammatory response. Some conditions in which this pattern has been observed include: bacterial, viral or parasitic infection; mechanical, physical or chemical trauma; and cardiac failure. The gamma globulin region is unremarkable and evidence of monoclonal protein is not apparent. Performed at: [facility] [address] [id number] Grocery Clerk Stocking: Mohan Talbert PhD, Phone: [phone] Performed By: #### I FE SERUM, SPE W INTERPRET, KAPPA ####[facility] ,#### [id number], [id number], FE and TIBC, RENAL, PTH, MG, URIC, ELIAS, CBCNO ####[address] SPE-Note Comment Normal . [facility] Comment on above: Result Comment: Prot ein electrophoresis scan will follow via computer, mail, or fish worm grower delivery. Performed By: #### I FE SERUM, SPE W INTERPRET, KAPPA ####[facility] ,#### [id number], [id number], FE and TIBC, RENAL, PTH, MG, URIC, ELIAS, CBCNO ####[address] RBC Auto (Bld) [#/Vol]Ordere d By: Leroy Ashby on 06-28-2024 RBC (Bld) [#/Vol] Erythrocytes [#/volume] in Blood by Automated count 3.60-5.00 [facility] Renal Function Panelon 06-28 Albumin [Mass/Vol] 3.6 g/dL Normal 3.5-5.7 [facility] Comment on above: Performed By: #### I FE SERUM, SPE W INTERPRET, KAPPA ####[facility] ,#### [id number], [id number], FE and TIBC, RENAL, PTH, MG, URIC, ELIAS, CBCNO ####[place] [id number] [facility] Anion gap [Moles/Vol] 12.9 mmol/L Normal 6.0-15.0 [facility] Comment on above: Performed By: #### I FE SERUM, SPE W INTERPRET, KAPPA ####[facility] ,#### [id number], [id number], FE and TIBC, RENAL, PTH, MG, URIC, ELIAS, CBCNO ####[place] [id number] [facility] Calcium [Mass/Vol] 9.3 mg/dL Normal 8.6-10.3 [facility] Comment on above: Performed By: #### I FE SERUM, SPE W INTERPRET, KAPPA ####[facility] ,#### [id number], [id number], FE and TIBC, RENAL, PTH, MG, URIC, ELIAS, CBCNO ####[place] [id number] [facility] Chloride [Moles/Vol] 101 mmol/L Normal 98-107 [facility] Comment on above: Performed By: #### I FE SERUM, SPE W INTERPRET, KAPPA ####[facility] ,#### [id number], [id number], FE and TIBC, RENAL, PTH, MG, URIC, ELIAS, CBCNO ####[place] [id number] [facility] CO2 [Moles/Vol] 29.5 mmol/L Normal 21.0-31.0 [facility] Comment on above: Performed By: #### I FE SERUM, SPE W INTERPRET, KAPPA ####[facility] ,#### [id number], [id number], FE and TIBC, RENAL, PTH, MG, URIC, ELIAS, CBCNO ####[address] [address] [facility] Creatinine [Mass/Vol] 1.44 mg/dL High 0.60-1.20 [facility] Comment on above: Performed By: #### I FE SERUM, SPE W INTERPRET, KAPPA ####[facility] ,#### [id number], [id number], FE and TIBC, RENAL, PTH, MG, URIC, ELIAS, CBCNO ####[address] [place] [id number] [facility] Estimated GFR 36.998 mL/Min Normal [facility] Comment on above: Performed By: #### I FE SERUM, SPE W INTERPRET, KAPPA ####[facility] ,#### [id number], [id number], FE and TIBC, RENAL, PTH, MG, URIC, ELIAS, CBCNO ####[address] [place] [id number] [facility] Glucose [Mass/Vol] 151 mg/dL High 70-100 [facility] Comment on above: Result Comment: [facility] Glucose Reference Range is dependent on time and content of last meal. Glucose of more than 200 mg/dL in a nonstressed, ambulatory subject supports the diagnosis of Diabetes Mellitus. ADA recommended reference range Performed By: #### I FE SERUM, SPE W INTERPRET, KAPPA ####[facility] ,#### [id number], [id number], FE and TIBC, RENAL, PTH, MG, URIC, ELIAS, CBCNO ####[address] [place] [id number] [facility] Phosphate [Mass/Vol] 3.5 mg/dL Normal 2.5-4.5 [facility] Comment on above: Performed By: #### I FE SERUM, SPE W INTERPRET, KAPPA ####[facility] ,#### [id number], [id number], FE and TIBC, RENAL, PTH, MG, URIC, ELIAS, CBCNO ####[address] [place] [address] [facility] Potassium [Moles/Vol] 4.4 mmol/L Normal 3.5-5.1 [facility] Comment on above: Performed By: #### I FE SERUM, SPE W INTERPRET, KAPPA ####[facility] ,#### [id number], [id number], FE and TIBC, RENAL, PTH, MG, URIC, ELIAS, CBCNO ####[place] [address] Sodium [Moles/Vol] 139 mmol/L Normal 136-145 [facility] Comment on above: Performed By: #### I FE SERUM, SPE W INTERPRET, KAPPA ####[facility] ,#### [id number], [id number], FE and TIBC, RENAL, PTH, MG, URIC, ELIAS, CBCNO ####[place] [address] Urea nitrogen [Mass/Vol] 28 mg/dL High 7-25 [facility] Comment on above: Performed By: #### I FE SERUM, SPE W INTERPRET, KAPPA ####[facility] ,#### [id number], [id number], FE and TIBC, RENAL, PTH, MG, URIC, ELIAS, CBCNO ####[address] Serum free kappa light chain measurementOrdered By: Leroy Ashby on 06-28-2024 Immunoglobulin light chains.kappa.free (S) [Mass/Vol] Immunoglobulin light chains.kappa.free [Mass/volume] in Serum High 3.3-19.4 [facility] Serum globulin measurement ( mass/volume)Ordered By: Leroy Ashby on 06-28-2024 Globulin (S) [Mass/Vol] Serum globulin measurement (mass/volume) 2.2-3.9 [facility] Serum immunofixation electro phoresisOrdered By: Leroy Ashby on 06-28-2024 Serum Immunofixation Comment: . [facility] Comment on above: Presence of monoclon al protein is unclear at this time. Suggestrepeat in 3 to 6 months if clinically indicated. Serum immunoglobulin free ka ppa light chains/immunoglobulin free lambda light chainsOrdered By: Leroy Isma on 06-28-2024 Immunoglobulin light chains.kappa.free/I mmunoglobulin light chains.lambda.free (S) [Mass ratio] Immunoglobulin light chains.kappa.free/I mmunoglobulin light chains.lambda.free [Mass High 0.26-1.65 [facility] Comment on above: Performed at: [facility] [address] [id number] Director: Mohan Talbert PhD, Phone: [phone] Serum or plasma IgA measurem ent (mass/volume)Ordered By: Leroy Isma on 06-28-2024 IgA [Mass/Vol] IgA [Mass/volume] in Serum or Plasma 64-422 [facility] Serum or plasma IgG measurem ent (mass/volume)Ordered By: Leroy Isma on 06-28-2024 IgG [Mass/Vol] IgG [Mass/volume] in Serum or Plasma [phone] [facility] Serum or plasma IgM measurem ent (mass/volume)Ordered By: Leroy Isma on 06-28-2024 IgM [Mass/Vol] IgM [Mass/volume] in Serum or Plasma 26-217 [facility] Comment on above: Performed at: [facility] [address] [id number] Director: Mohan Talbert PhD, Phone: [phone] Serum or plasma albumin lei urement (mass/volume)Ordered By: Leroy Isma on 06-28-2024 Albumin [Mass/Vol] Albumin [Mass/volume] in Serum or Plasma 2.9-4.4 [facility] Serum or plasma albumin/glob ulin mass ratioOrdered By: Leroy Isma on 06-28-2024 Albumin/Globulin [Mass ratio] Serum or plasma albumin/globulin mass ratio 0.7-1.7 [facility] Serum or plasma alpha 1 glob ulin measurement by electrophoresis (mass/volume)Ordered By: Leroy Isma on 06-28-2024 Alpha 1 globulin Elph [Mass/Vol] Serum or plasma alpha 1 globulin measurement by electrophoresis (mass/volume) 0.0-0.4 [facility] Serum or plasma alpha 2 glob ulin measurement by electrophoresis (mass/volume)Ordered By: Leroy Ashby on 06-28-2024 Alpha 2 globulin Elph [Mass/Vol] Serum or plasma alpha 2 globulin measurement by electrophoresis (mass/volume) High 0.4-1.0 [facility] Serum or plasma anion gap de terminationOrdered By: Leroy Ashby on 06-28-2024 Anion gap [Moles/Vol] Serum or plasma anion gap determination 6.0-15.0 [facility] Serum or plasma beta globuli n measurement by electrophoresis (mass/volume)Ordered By: Leroy Ashby on 06-28-2024 Beta globulin Elph [Mass/Vol] Serum or plasma beta globulin measurement by electrophoresis (mass/volume) 0.7-1.3 [facility] Serum or plasma gamma globul in measurement by electrophoresis (mass/volume)Ordered By: Leroy Ashby on 06-28-2024 Gamma globulin Elph [Mass/Vol] Serum or plasma gamma globulin measurement by electrophoresis (mass/volume) 0.4-1.8 [facility] Serum or plasma immunoglobul in free lambda light chains measurement (mass/volume)Ordered By: Leroy Ashby on 06-28-2024 Immunoglobulin light chains.lambda.free [Mass/Vol] Immunoglobulin light chains.lambda.free [Mass/volume] in Serum or Plasma High 5.7-26.3 [facility] Serum or plasma iron binding capacity measurement (mass/volume)Ordered By: Leroy Ashby on 06-28-2024 Iron binding capacity [Mass/Vol] Iron binding capacity [Mass/volume] in Serum or Plasma 255-450 [facility] Serum or plasma iron saturat ion measurement (mass fraction)Ordered By: Leroy Ashby on 06-28-2024 Iron saturation [Mass fraction] Iron saturation [Mass Fraction] in Serum or Plasma 20-50 [facility] Serum total protein measurem entOrdered By: Leroy Ashby on 06-28-2024 Protein [Mass/Vol] Protein [Mass/volume] in Serum or Plasma 6.0-8.5 [facility] Sodium [Moles/volume] in Ser um or PlasmaOrdered By: Leroy Ashby on 06-28-2024 Sodium [Moles/Vol] Sodium [Moles/volume] in Serum or Plasma 136-145 [facility] Transferrin [Mass/volume] in Serum or PlasmaOrdered By: Leroy Ashby on 06-28-2024 Transferrin [Mass/Vol] Transferrin [Mass/volume] in Serum or Plasma Low 203-362 [facility] Urate [Mass/volume] in Serum or PlasmaOrdered By: Leroy Ashby on 06-28-2024 Urate [Mass/Vol] Urate [Mass/volume] in Serum or Plasma 2.3-6.6 [facility] Urea nitrogen [Mass/volume] in Serum or PlasmaOrdered By: Leroy Ashby on 06-28-2024 Urea nitrogen [Mass/Vol] Urea nitrogen [Mass/volume] in Serum or Plasma High 7-25 [facility] Uric Acidon 06-28-2024 Urate [Mass/Vol] 4.3 mg/dL Normal 2.3-6.6 [facility] Comment on above: Performed By: #### I FE SERUM, SPE W INTERPRET, KAPPA ####[facility] ,#### [id number], [id number], FE and TIBC, RENAL, PTH, MG, URIC, ELIAS, CBCNO ####[place] [id number] Vit. B12/Folate Profileon Cobalamin (Vitamin B12) [Mass/Vol] 311 pg/mL Normal 180-914 [facility] Comment on above: Performed By: #### I FE SERUM, SPE W INTERPRET, KAPPA ####[facility] ,#### [id number], [id number], FE and TIBC, RENAL, PTH, MG, URIC, ELIAS, CBCNO ####[address] Folate 20.4 ng/mL Normal >5.9 [facility] Comment on above: Result Comment: Jess te reference range: >5.9 ng/ml The WHO technical consultation on folate and vitamin b12 deficiencies has determined that folate concentrations less than 4 ng/ml are considered deficient. Performed By: #### I FE SERUM, SPE W INTERPRET, KAPPA ####[facility] ,#### [id number], [id number], FE and TIBC, RENAL, PTH, MG, URIC, ELIAS, CBCNO ####[facility] [place] [address] [facility] Vitamin B12 ser/plasOrdered By: Leroy Ashby on 06-28-2024 Cobalamin (Vitamin B12) [Mass/Vol] Vitamin B12 ser/plas 180-914 [facility] Vitamin D 25 Hydroxy Totalon 06-28-2024 Vitamin D 25 Hydroxy Total 59.6 ng/mL Normal 30-100 [facility] Comment on above: Result Comment: ROBERTO MIN D STATUS 25(OH)VITAMIN D RANGE (ng/mL) Deficient <20 Insufficient 20 to <30 Sufficient 30 to 100 Reference: Abhijeet Lao, Stacey CHATMAN, et al. Evaluation,treatment, and prevention of vitamin D deficiency; an Endocrine Society clinical practice guideline. JCEM. 2010; 96(7):1911-30.PERFORMED BY:[address] [place], [place] [id number] MEDICAL DIRECTORRADHA DURAN M.D. Performed By: #### I FE SERUM, SPE W INTERPRET, KAPPA ####[facility] ,#### [id number], [id number], FE and TIBC, RENAL, PTH, MG, URIC, ELIAS, CBCNO ####[address] [address] [facility] Vitamin D+Metabolites [Mass/ volume] in Serum or PlasmaOrdered By: Leroy Ashby on 06-28-2024 Vitamin D+Metabolites [Mass/Vol] Vitamin D+Metabolites [Mass/volume] in Serum or Plasma 30-100 [facility] Comment on above: VITAMIN D STATUS 25( [place])VITAMIN D RANGE (ng/mL) Deficient <20 Insufficient 20 to <30Sufficient 30 to 100Reference: Abhijeet Lao, Stacey CHATMAN, et al. Evaluation,treatment, and prevention of vitamin D deficiency; an Endocrine Society clinical practice guideline. JCEM. 2010; 96(7):1911-30. XR hip LT min 2V(w/wo pelvis )*on 06-28-2024 XR hip LT min 2V(w/wo pelvis)* Normal [facility] Albumin Levelon 06-24-2024 Albumin [Mass/Vol] 3.7 g/dL Normal 3.5-5.7 [facility] Comment on above: Result Comment: PERF ORMED BY:[facility] [facility], [place] [phone] MEDICAL DIRECTORRADHA DURAN M.D. Performed By: #### C BC, ALB, BMP ####[facility] [place] [id number] [facility]#### FRUC ####[facility] , Albumin [Mass/volume] in Ser um or Plasma by Bromocresol green (BCG) dye binding methoOrdered By: Da Lozano on 06-24-2024 Albumin BCG dye [Mass/Vol] Albumin [Mass/volume] in Serum or Plasma by Bromocresol green (BCG) dye binding metho 3.5-5.7 [facility] Appearance of UrineOrdered B y: Da Lozano on 06-24-2024 Appearance (U) Urine appearance Abnormal Clear [facility] Bacteria [Presence] in Urine by AutomatedOrdered By: Da Loazno on 06-24-2024 Bacteria Auto Ql (U) Bacteria [Presence] in Urine by Automated High None Seen [facility] Basic Metabolic Panelon 06-13 Anion gap [Moles/Vol] 14.2 mmol/L Normal 6.0-15.0 [facility] Comment on above: Performed By: #### C BC, ALB, BMP ####[facility] [place] [id number] [facility]#### FRUC ####[facility] , Calcium [Mass/Vol] 9.6 mg/dL Normal 8.6-10.3 [facility] Comment on above: Performed By: #### C BC, ALB, BMP ####[place] [address] [place]#### FRUC ####[facility] , Chloride [Moles/Vol] 99 mmol/L Normal 98-107 [facility] Comment on above: Performed By: #### C BC, ALB, BMP ####[place] [address] [place]#### FRUC ####[facility] , CO2 [Moles/Vol] 32.5 mmol/L High 21.0-31.0 [facility] Comment on above: Performed By: #### C BC, ALB, BMP ####[address]#### FRUC ####[facility] , Creatinine [Mass/Vol] 1.62 mg/dL High 0.60-1.20 [facility] Comment on above: Performed By: #### C BC, ALB, BMP ####[place] [address] [place]#### FRUC ####[facility] , Estimated GFR 32.121 mL/Min Normal [facility] Comment on above: Performed By: #### C BC, ALB, BMP ####[place] [address] [place]#### FRUC ####[facility] , Glucose [Mass/Vol] 77 mg/dL Normal 70-100 [facility] Comment on above: Result Comment: [place] om Glucose Reference Range is dependent on time and content of last meal. Glucose of more than 200 mg/dL in a nonstressed, ambulatory subject supports the diagnosis of Diabetes Mellitus. ADA recommended reference range Performed By: #### C BC, ALB, BMP ####[place] [address] [place]#### FRUC ####[facility] , Potassium [Moles/Vol] 4.7 mmol/L Normal 3.5-5.1 [facility] Comment on above: Performed By: #### C BC, ALB, BMP ####[facility] [address] [place] [address] [place]#### FRUC ####[facility] , Sodium [Moles/Vol] 141 mmol/L Normal 136-145 [facility] Comment on above: Performed By: #### C BC, ALB, BMP ####[facility] [place] [address] [place]#### FRUC ####[facility] , Urea nitrogen [Mass/Vol] 34 mg/dL High 7-25 [facility] Comment on above: Performed By: #### C BC, ALB, BMP ####[facility] [place] [address] [place]#### FRUC ####[facility] , Basophils Auto (Bld) [#/Vol] Ordered By: Da Lozano on 06-24-2024 Basophils (Bld) [#/Vol] Automated basophil count 0.0-0.2 [facility] Basophils/100 WBC Auto (Bld) Ordered By: Da Lozano on 06-24-2024 Basophils/100 WBC (Bld) Automated basophil % . [facility] Bilirubin Test strip Ql (U)O rdered By: Da Lozano on 06-24-2024 Bilirubin Ql (U) Bilirubin.total [Presence] in Urine by Test strip Negative [facility] Calcium [Mass/volume] in Ser um or PlasmaOrdered By: Da Lozano on 06-24-2024 Calcium [Mass/Vol] Calcium [Mass/volume] in Serum or Plasma 8.6-10.3 [facility] Carbon dioxide, total [Moles /volume] in Serum or PlasmaOrdered By: Da Lozano on 06-24-2024 CO2 [Moles/Vol] Carbon dioxide, total [Moles/volume] in Serum or Plasma High 21.0-31.0 [facility] Chloride [Moles/volume] in [place] or PlasmaOrdered By: Da Lozano on 06-24-2024 Chloride [Moles/Vol] Chloride [Moles/volume] in Serum or Plasma 98-107 [facility] Color Auto (U)Ordered By: Yuki Lozano on 06-24-2024 Color (U) Color of Urine by Auto Abnormal Yellow [facility] Complete Blood Count Auto Di ffon 06-24-2024 Basophils (Bld) [#/Vol] 0.1 10*3/uL Normal 0.0-0.2 [facility] Comment on above: Result Comment: PERF ORMED BY:[address] [place], [place] [phone] MEDICAL DIRECTORRADHA DURAN M.D. Performed By: #### C BC, ALB, BMP ####[address]#### FRUC ####[facility] , Basophils/100 WBC (Bld) 1.2 % Normal . [facility] Comment on above: Performed By: #### C BC, ALB, BMP ####[address]#### FRUC ####[facility] , Eosinophils (Bld) [#/Vol] 0.4 10*3/uL Normal 0.0-0.45 [facility] Comment on above: Performed By: #### C BC, ALB, BMP ####[address]#### FRUC ####[facility] , Eosinophils/100 WBC (Bld) 3.9 % Normal . [facility] Comment on above: Performed By: #### C BC, ALB, BMP ####[address]#### FRUC ####[facility] , Erythrocyte distribution width (RBC) [Ratio] 15.6 % High 11.9-15.3 [facility] Comment on above: Performed By: #### C BC, ALB, BMP ####[place] [address] [place]#### FRUC ####[facility] , Hematocrit (Bld) [Volume fraction] 36.3 % Normal 34.0-46.4 [facility] Comment on above: Performed By: #### C BC, ALB, BMP ####[place] [address] [place]#### FRUC ####[facility] , Hemoglobin (Bld) [Mass/Vol] 11.9 g/dL Normal 11.8-15.4 [facility] Comment on above: Performed By: #### C BC, ALB, BMP ####[place] [address] [place]#### FRUC ####[facility] , Lymphocytes (Bld) [#/Vol] 2.1 10*3/uL Normal 1.00-4.8 [facility] Comment on above: Performed By: #### C BC, ALB, BMP ####[address]#### FRUC ####[facility] , Lymphocytes/100 WBC (Bld) 19.4 % Normal . [facility] Comment on above: Performed By: #### C BC, ALB, BMP ####[place] [address] [place]#### FRUC ####[facility] , MCH (RBC) [Entitic mass] 31.9 pg Normal 24.7-34.3 [facility] Comment on above: Performed By: #### C BC, ALB, BMP ####[place] [address] [place]#### FRUC ####[facility] , MCV (RBC) [Entitic vol] 97.5 fL Normal 80-100 [facility] Comment on above: Performed By: #### C BC, ALB, BMP ####[place] [address] [place]#### FRUC ####[facility] , Mean Corpuscular HGB Conc 32.7 g/dL Normal 32.0-35.0 [facility] Comment on above: Performed By: #### C BC, ALB, BMP ####[place] [address] [place]#### FRUC ####[facility] , Monocytes (Bld) [#/Vol] 0.8 10*3/uL Normal 0.0-0.8 [facility] Comment on above: Performed By: #### C BC, ALB, BMP ####[place] [address] [place]#### FRUC ####[facility] , Monocytes/100 WBC (Bld) 7.5 % Normal . [facility] Comment on above: Performed By: #### C BC, ALB, BMP ####[place] [address] [place]#### FRUC ####[facility] , Neutrophils (Bld) [#/Vol] 7.4 10*3/uL Normal 1.8-7.7 [facility] Comment on above: Performed By: #### C BC, ALB, BMP ####[place] [address] [place]#### FRUC ####[facility] , Neutrophils/100 WBC (Bld) 68.0 % Normal . [facility] Comment on above: Performed By: #### C BC, ALB, BMP ####[place] [address] [place]#### FRUC ####[facility] , NRBC% 0.0 /100{WBC} Normal 0-0.5 [facility] Comment on above: Performed By: #### C BC, ALB, BMP ####[address]#### FRUC ####[facility] , Platelet mean volume (Bld) [Entitic vol] 9.0 fL Normal 6.3-10.7 [facility] Comment on above: Performed By: #### C BC, ALB, BMP ####[place] [address] [place]#### FRUC ####[facility] , Platelets (Bld) [#/Vol] 252 10*3/uL Normal 150-450 [facility] Comment on above: Performed By: #### C BC, ALB, BMP ####[place] [address] [place]#### FRUC ####[facility] , RBC (Bld) [#/Vol] 3.73 10*6/uL Normal 3.60-5.00 [facility] Comment on above: Performed By: #### C BC, ALB, BMP ####[address]#### FRUC ####[facility] , WBC (Bld) [#/Vol] 10.9 10*3/uL Normal 3.8-11.6 [facility] Comment on above: Performed By: #### C BC, ALB, BMP ####[place] [address] [place]#### FRUC ####[facility] , Creatinine [Mass/volume] in Serum or PlasmaOrdered By: Da Lozano on 06-24-2024 Creatinine [Mass/Vol] Creatinine [Mass/volume] in Serum or Plasma High 0.60-1.20 [facility] Dipstick and Microscopicon 1 08-25-2023 Appearance (U) Turbid Critically abnormal Clear [facility] Comment on above: Order Comment: Name Collection Type:: Clean-Voided Midstream Performed By: #### A DDONUAPLUS, CUU ####[address] [place] [address] [facility] Bacteria,Urine 4+ High None Seen [facility] Comment on above: Order Comment: Name Collection Type:: Clean-Voided Midstream Performed By: #### A DDONUAPLUS, CUU ####[address] [place] [address] [place] Bilirubin,Urine Negative Normal Negative [facility] Comment on above: Order Comment: Name Collection Type:: Clean-Voided Midstream Performed By: #### A DDONUAPLUS, CUU ####[address] [address] [facility] Color (U) [place] Critically abnormal Yellow [facility] Comment on above: Order Comment: Name Collection Type:: Clean-Voided Midstream Performed By: #### A DDONUAPLUS, CUU ####[address] [address] [facility] Glucose Ql (U) Normal Normal Normal [facility] Comment on above: Order Comment: Name Collection Type:: Clean-Voided Midstream Performed By: #### A DDONUAPLUS, CUU ####[address] [address] [place] Hyaline Casts,Urine None Normal 0-8 [facility] Comment on above: Order Comment: Name Collection Type:: Clean-Voided Midstream Performed By: #### A DDONUAPLUS, CUU ####[address] [address] [place] Ketones Ql (U) Negative Normal Negative [facility] Comment on above: Order Comment: Name Collection Type:: Clean-Voided Midstream Performed By: #### A DDONUAPLUS, CUU ####[address] [address] [facility] Leukocyte esterase Test strip Ql (U) 4+ High Negative [facility] Comment on above: Order Comment: Name Collection Type:: Clean-Voided Midstream Performed By: #### A DDONUAPLUS, CUU ####[place] [id number] [facility] Mucus,Urine Rare Normal [facility] Comment on above: Order Comment: Name Collection Type:: Clean-Voided Midstream Result Comment: PERF ORMED BY:[address] [place], [place] [phone] MEDICAL DIRECTORMOLEXINGTON MED[facility] CENTER Peng Performed By: #### A DDONUAPLUS, CUU ####[place] [id number] [facility] Nitrite,Urine Negative Normal Negative [facility] Comment on above: Order Comment: Name Collection Type:: Clean-Voided Midstream Performed By: #### A DDONUAPLUS, CUU ####[place] [id number] [facility] Occult Blood,Urine 1+ High Negative [facility] Comment on above: Order Comment: Name Collection Type:: Clean-Voided Midstream Result Comment: PERF ORMED BY:[address] [place], [place] [phone] MEDICAL DIRECTORANMED HEALTH CANNON Peng Performed By: #### A DDONUAPLUS, CUU ####[place] [id number] [facility] pH (U) 6.5 [pH] Normal 5.0-9.0 [facility] Comment on above: Order Comment: Name Collection Type:: Clean-Voided Midstream Performed By: #### A DDONUAPLUS, CUU ####[place] [id number] [facility] Protein (U) [Mass/Vol] 70 mg/dL High Negative [facility] Comment on above: Order Comment: Name Collection Type:: Clean-Voided Midstream Performed By: #### A DDONUAPLUS, CUU ####[address] RBC,Urine 20 [HPF] High 0-4 [facility] Comment on above: Order Comment: Name Collection Type:: Clean-Voided Midstream Performed By: #### A DDONUAPLUS, CUU ####[address] Specificy [place],Urine 1.010 Normal 1.001-1.030 [facility] Comment on above: Order Comment: Name Collection Type:: Clean-Voided Midstream Performed By: #### A DDONUAPLUS, CUU ####[address] Squamous Epithelial Cell,Urine 20 [HPF] High 0-2 [facility] Comment on above: Order Comment: Name Collection Type:: Clean-Voided Midstream Performed By: #### A DDONUAPLUS, CUU ####[address] Urobilinogen,Urine Normal Normal Normal [facility] Comment on above: Order Comment: Name Collection Type:: Clean-Voided Midstream Performed By: #### A DDONUAPLUS, CUU ####[address] WBC CLUMP, Urine Many High None Seen [facility] Comment on above: Order Comment: Name Collection Type:: Clean-Voided Midstream Performed By: #### A DDONUAPLUS, CUU ####[address] WBC,Urine Innumerable High 0-4 [facility] Comment on above: Order Comment: Name Collection Type:: Clean-Voided Midstream Performed By: #### A DDONUAPLUS, CUU ####[address] Eosinophils Auto (Bld) [#/Vo l]Ordered By: Da Lozano on 06-24-2024 Eosinophils (Bld) [#/Vol] Automated eosinophil count 0.0-0.45 [facility] Eosinophils/100 WBC Auto (Bl d)Ordered By: Da Lozano on 06-24-2024 Eosinophils/100 WBC (Bld) Automated eosinophil % . [facility] Epithelial cells.squamous [# /area] in Urine sediment by Automated countOrdered By: Da Lozano on 06-24-2024 Epithelial cells.squamous Auto (Urine sed) [#/Area] Epithelial cells.squamous [#/area] in Urine sediment by Automated count High 0-2 [facility] Erythrocyte distribution wid th Auto (RBC) [Ratio]Ordered By: Da Lozano on 06-24-2024 Erythrocyte distribution width (RBC) [Ratio] Erythrocyte distribution width [Ratio] by Automated count High 11.9-15.3 [facility] Erythrocytes [#/area] in Uri ne sediment by Automated countOrdered By: Da Lozano on 06-24-2024 RBC Auto (Urine sed) [#/Area] Erythrocytes [#/area] in Urine sediment by Automated count High 0-4 [facility] Fructosamineon 06-24-2024 Fructosamine 308 umol/L High 0-285 [facility] Comment on above: Result Comment: Publ ished reference interval for apparently healthy subjects between age 20 and 60 is 205 - 285 umol/L and in a poorly controlled diabetic population is 228 - 563 umol/L with a mean of 396 umol/L. Performed at: [facility] [id number] Grocery Clerk Stocking: Mohan Talbert PhD, Phone: [phone] BY:[address] [place], [place] [phone] MEDICAL DIRECTORRADHA DURAN M.D. Performed By: #### C BC, ALB, BMP ####[address]#### FRUC ####[facility] , Fructosamine [Moles/volume] in Serum or PlasmaOrdered By: Da Lozano on 06-24-2024 Fructosamine [Moles/Vol] Fructosamine [Moles/volume] in Serum or Plasma High 0-285 [facility] Comment on above: Published reference interval for apparently healthysubjects between age 20 and 60 is 205 - 285 umol/L and in apoorly controlled diabetic population is 228 - 563 umol/Lwith a mean of 396 umol/L.Performed at: [facility] [id number] Director: Mohan Talbert PhD, Phone: [phone] Glucose [Mass/volume] in Ser um or PlasmaOrdered By: Da Lozano on 06-24-2024 Glucose [Mass/Vol] Glucose [Mass/volume] in Serum or Plasma 70-100 [facility] Comment on above: ADA recommended refe rence rangeRandom Glucose Reference Range is dependent on time and content of last meal. Glucose of more than 200 mg/dL in a nonstressed, ambulatory subject supports the diagnosis of Diabetes Mellitus. Glucose [Mass/volume] in Uri ne by Test stripOrdered By: Da Lozano on 06-24-2024 Glucose Test strip (U) [Mass/Vol] Glucose [Mass/volume] in Urine by Test strip Normal [facility] Hematocrit Auto (Bld) [Volum e fraction]Ordered By: Da Lozano on 06-24-2024 Hematocrit (Bld) [Volume fraction] Hematocrit [Volume Fraction] of Blood by Automated count 34.0-46.4 [facility] Hemoglobin Test strip Ql (U) Ordered By: Da Lozano on 06-24-2024 Hemoglobin Ql (U) Hemoglobin [Presence] in Urine by Test strip High Negative [facility] Hemoglobin [Mass/volume] in BloodOrdered By: Da Lozano on 06-24-2024 Hemoglobin (Bld) [Mass/Vol] Hemoglobin [Mass/volume] in Blood 11.8-15.4 [facility] Hyaline casts [#/area] in Ur ine sediment by Automated countOrdered By: Da Lozano on 06-24-2024 Hyaline casts Auto (Urine sed) [#/Area] Hyaline casts [#/area] in Urine sediment by Automated count 0-8 [facility] Ketones Test strip Ql (U)Ord ered By: Da Lozano on 06-24-2024 Ketones Ql (U) Ketones [Presence] in Urine by Test strip Negative [facility] Leukocyte clumps [Presence] in Urine by AutomatedOrdered By: Da Lozano on 06-24-2024 Leukocyte clumps Auto Ql (U) Leukocyte clumps [Presence] in Urine by Automated High None Seen [facility] Leukocyte esterase [Presence ] in Urine by Test stripOrdered By: Da Lozano on 06-24-2024 Leukocyte esterase Test strip Ql (U) Leukocyte esterase [Presence] in Urine by Test strip High Negative [facility] Leukocytes [#/area] in Urine sediment by Automated countOrdered By: Da Lozano on 06-24-2024 WBC Auto (Urine sed) [#/Area] Leukocytes [#/area] in Urine sediment by Automated count High 0-4 [facility] Leukocytes [#/volume] correc suzi for nucleated erythrocytes in Blood by Automated counOrdered By: Da Lozano on 06-24-2024 WBC corrected for nucl RBC Auto (Bld) [#/Vol] Leukocytes [#/volume] corrected for nucleated erythrocytes in Blood by Automated coun 3.8-11.6 [facility] Lymphocytes Auto (Bld) [#/Vo l]Ordered By: Da Lozano on 06-24-2024 Lymphocytes (Bld) [#/Vol] Lymphocytes [#/volume] in Blood by Automated count 1.00-4.8 [facility] Lymphocytes/100 WBC Auto (Bl d)Ordered By: Da Lozano on 06-24-2024 Lymphocytes/100 WBC (Bld) Lymphocytes/100 leukocytes in Blood by Automated count . [facility] MCH Auto (RBC) [Entitic mass ]Ordered By: Da Lozano on 06-24-2024 MCH (RBC) [Entitic mass] MCH [Entitic mass] by Automated count 24.7-34.3 [facility] MCHC Auto (RBC) [Mass/Vol]Or dered By: Da Lozano on 06-24-2024 MCHC (RBC) [Mass/Vol] MCHC [Mass/volume] by Automated count 32.0-35.0 [facility] MCV Auto (RBC) [Entitic vol] Ordered By: Da Lozano on 06-24-2024 MCV (RBC) [Entitic vol] MCV [Entitic volume] by Automated count 80-100 [facility] Monocytes Auto (Bld) [#/Vol] Ordered By: Da Lozano on 06-24-2024 Monocytes (Bld) [#/Vol] Automated blood monocyte count 0.0-0.8 [facility] Monocytes/100 WBC Auto (Bld) Ordered By: Da Lozano on 06-24-2024 Monocytes/100 WBC (Bld) Automated monocyte % . [facility] Mucus [Presence] in Urine by AutomatedOrdered By: Da Lozano on 06-24-2024 Mucus Auto Ql (U) Mucus [Presence] in Urine by Automated [facility] Neutrophils Auto (Bld) [#/Vo l]Ordered By: Da Lozano on 06-24-2024 Neutrophils (Bld) [#/Vol] Neutrophils [#/volume] in Blood by Automated count 1.8-7.7 [facility] Neutrophils/100 WBC Auto (Bl d)Ordered By: Da Lozano on 06-24-2024 Neutrophils/100 WBC (Bld) Automated neutrophil % . [facility] Nitrite Test strip Ql (U)Ord ered By: Da Lozano on 06-24-2024 Nitrite Ql (U) Nitrite [Presence] in Urine by Test strip Negative [facility] No Panel InformationOrdered By: Da Lozano on 06-24-2024 Estimated GFR (CKD-EPI) 32.121 mL/Min [facility] Creatinine Clearance (Chem N/A [facility] Nucleated erythrocytes [Pres ence] in Blood by Automated countOrdered By: Da Lozano on 06-24-2024 Nucleated RBC Auto Ql (Bld) Nucleated erythrocytes [Presence] in Blood by Automated count 0-0.5 [facility] PST Type and Screenon 2023 ABO and Rh group Nom (Bld) Blood group A Rh(D) positive Normal [facility] Comment on above: Order Comment: Date of Surgery: [id number] Result Comment: PERF ORMED BY:[facility] [place], [place] [phone] MEDICAL DIRECTORRADHA DURAN M.D. Platelet mean volume Auto (B ld) [Entitic vol]Ordered By: Da Lozano on 06-24-2024 Platelet mean volume (Bld) [Entitic vol] Platelet mean volume [Entitic volume] in Blood by Automated count 6.3-10.7 [facility] Platelets Auto (Bld) [#/Vol] Ordered By: Da Lozano on 06-24-2024 Platelets (Bld) [#/Vol] Platelets [#/volume] in Blood by Automated count 150-450 [facility] Potassium [Moles/volume] in Serum or PlasmaOrdered By: Da Loazno on 06-24-2024 Potassium [Moles/Vol] Potassium [Moles/volume] in Serum or Plasma 3.5-5.1 [facility] Protein Test strip (U) [Mass /Vol]Ordered By: Da Lozano on 06-24-2024 Protein (U) [Mass/Vol] Protein [Mass/volume] in Urine by Test strip High Negative [facility] RBC Auto (Bld) [#/Vol]Ordere d By: Da Lozano on 06-24-2024 RBC (Bld) [#/Vol] Erythrocytes [#/volume] in Blood by Automated count 3.60-5.00 [facility] Serum or plasma anion gap de terminationOrdered By: Da Lozano on 06-24-2024 Anion gap [Moles/Vol] Serum or plasma anion gap determination 6.0-15.0 [facility] Sodium [Moles/volume] in Ser um or PlasmaOrdered By: Da Lozano on 06-24-2024 Sodium [Moles/Vol] Sodium [Moles/volume] in Serum or Plasma 136-145 [facility] Specific gravity Test strip (U) [Rel density]Ordered By: Da Lozano on 06-24-2024 Specific gravity (U) [Rel density] Specific gravity of Urine by Test strip 1.001-1.030 [facility] Urea nitrogen [Mass/volume] in Serum or PlasmaOrdered By: Da Lozano on 06-24-2024 Urea nitrogen [Mass/Vol] Urea nitrogen [Mass/volume] in Serum or Plasma High 7-25 [facility] Urine Cultureon 06-24-2024 Bacteria identified Cx Nom (U) Normal [facility] Comment on above: Performed By: #### A DDONUAPLUS, CUU ####[facility] [place] [address] [place] Urine cultureOrdered By: Landon Lozano on 06-24-2024 Bacteria identified Cx Nom (U) Urine culture [facility] Urobilinogen Test strip (U) [Mass/Vol]Ordered By: Da Lozano on 06-24-2024 Urobilinogen (U) [Mass/Vol] Urobilinogen [Mass/volume] in Urine by Test strip Normal [facility] WBC Auto (Bld) [#/Vol]Ordere d By: Da Lozano on 06-24-2024 WBC (Bld) [#/Vol] Leukocytes [#/volume] in Blood by Automated count 3.8-11.6 [facility] pH Test strip (U)Ordered By: Da Lozano on 06-24-2024 pH (U) pH of Urine by Test strip 5.0-9.0 [facility] Glucose Glucometer (BldC) [M ass/Vol]Ordered By: Yaniv Natarajan on 2024 Glucose [Mass/Vol] Capillary blood glucose measurement by glucometer (mass/volume) [facility] Comment on above: Random Glucose Refer ence Range is dependent on time and content of last meal. Glucose of more than 200 mg/dL in a nonstressed, ambulatory subject supports the diagnosis of Diabetes Mellitus. Glucose Poct Glucometerson 1 08-04-2023 Glucose [Mass/Vol] 247 mg/dL Normal [facility] Comment on above: Result Comment: [place] Glucose Reference Range is dependent on time and content of last meal. Glucose of more than 200 mg/dL in a nonstressed, ambulatory subject supports the diagnosis of Diabetes Mellitus.PERFORMED BY:[facility] [place], [place] [phone] MEDICAL DIRECTORRADHA DURAN M.D. Performed By: #### G LULS ####Point of Care testing, Commemt1 Glu2: Cleaned Meter Normal [facility] Comment on above: Performed By: #### G LULS ####Point of Care testing, Commemt2 WILL NOTIFY DR/RN Normal [facility] Comment on above: Result Comment: PERF ORMED BY:[facility] [place] [id number] MEDICAL DIRECTORRADHA DURAN M.D. Performed By: #### G LULS ####Point of Care testing, Glucose [Mass/Vol] 174 mg/dL Normal [facility] Comment on above: Result Comment: [place] Glucose Reference Range is dependent on time and content of last meal. Glucose of more than 200 mg/dL in a nonstressed, ambulatory subject supports the diagnosis of Diabetes Mellitus. Performed By: #### G LULS ####Point of Care testing, No Panel InformationOrdered By: Yaniv Natarajan on 2024 Bedside Glucose #[address]/rn [facility] Bedside Glucose Comment Glu2: cleaned meter [facility] XR KUBon 2024 XR KUB Normal [facility] Laboratory - Chemistry and C hemistry - challengeon 05-25-2024 Bilirubin Ql (U) Negative [facility] Glucose (U) [Mass/Vol] Negative [facility] Ketones Ql (U) Negative [facility] pH (U) 5 [pH] [facility] Specific gravity (U) [Rel density] 1.005 [facility] Urobilinogen (U) [Mass/Vol] 0.2 mg/dL [facility] Laboratory - Specimen inform ationon 05-25-2024 Appearance (U) cloudy [facility] Color (U) lightyellow [facility] Laboratory - Urinalysison Leukocyte esterase Test strip Ql (U) +++ [facility] Nitrite Ql (U) Negative [facility] Protein Ql (U) Negative [facility] No Panel Informationon 05-25 Urine Occult Blood Negative [facility] Urine Cultureon 05-25-2024 Bacteria identified Cx Nom (U) No Growth 2 Days PERFORMED BY: [facility] [facility] [address] [place] [address] PATHOLOGIST SPECIALTY FINISHING UTILITY PERSON RADHA DURAN M.D. Normal [facility] Comment on above: Performed By: #### C UU ####[place] [id number] [facility] Urine cultureOrdered By: Sulema Best on 05-25-2024 Bacteria identified Cx Nom (U) Urine culture [facility] Basic Metabolic Panelon 11-0 Anion gap [Moles/Vol] 11.4 mmol/L Normal 6.0-15.0 [facility] Comment on above: Performed By: #### P T, BMP, PTT, CBC ####[address] Calcium [Mass/Vol] 10.1 mg/dL Normal 8.6-10.3 [facility] Comment on above: Result Comment: PERF ORMED BY:[address] [place], [place] [phone] MEDICAL DIRECTORCORAL BECKETT M.D. Performed By: #### P T, BMP, PTT, CBC ####[place] [id number] [facility] Chloride [Moles/Vol] 98 mmol/L Normal 98-107 [facility] Comment on above: Performed By: #### P T, BMP, PTT, CBC ####[place] [id number] [facility] CO2 [Moles/Vol] 30.4 mmol/L Normal 21.0-31.0 [facility] Comment on above: Performed By: #### P T, BMP, PTT, CBC ####[place] [id number] [facility] Creatinine [Mass/Vol] 1.77 mg/dL High 0.60-1.20 [facility] Comment on above: Performed By: #### P T, BMP, PTT, CBC ####[place] [id number] [facility] GFR/1.73 sq M.predicted MDRD (S/P/Bld) [Vol rate/Area] 29.063 mL/min/{1.73_m2} Normal [facility] Comment on above: Performed By: #### P T, BMP, PTT, CBC ####[address] Glucose [Mass/Vol] 252 mg/dL High 70-100 [facility] Comment on above: Result Comment: [facility] Glucose Reference Range is dependent on time and content of last meal. Glucose of more than 200 mg/dL in a nonstressed, ambulatory subject supports the diagnosis of Diabetes Mellitus. ADA recommended reference range Performed By: #### P T, BMP, PTT, CBC ####[address] Potassium [Moles/Vol] 4.8 mmol/L Normal 3.5-5.1 [facility] Comment on above: Performed By: #### P T, BMP, PTT, CBC ####[address] Sodium [Moles/Vol] 135 mmol/L Low 136-145 [facility] Comment on above: Performed By: #### P T, BMP, PTT, CBC ####[address] Urea nitrogen [Mass/Vol] 45 mg/dL High 7-25 [facility] Comment on above: Performed By: #### P T, BMP, PTT, CBC ####[address] Basophils Auto (Bld) [#/Vol] Ordered By: Yaniv Natarajan on 05-21-2024 Basophils (Bld) [#/Vol] Automated basophil count 0.0-0.2 [facility] Basophils/100 WBC Auto (Bld) Ordered By: Yaniv Natarajan on 05-21-2024 Basophils/100 WBC (Bld) Automated basophil % . [facility] Calcium [Mass/volume] in Ser um or PlasmaOrdered By: Yaniv Natarajan on 05-21-2024 Calcium [Mass/Vol] Calcium [Mass/volume] in Serum or Plasma 8.6-10.3 [facility] Carbon dioxide, total [Moles /volume] in Serum or PlasmaOrdered By: Yaniv Natarajan on 05-21-2024 CO2 [Moles/Vol] Carbon dioxide, total [Moles/volume] in Serum or Plasma 21.0-31.0 [facility] Chloride [Moles/volume] in [place] or PlasmaOrdered By: Yaniv Natarajan on 05-21-2024 Chloride [Moles/Vol] Chloride [Moles/volume] in Serum or Plasma 98-107 [facility] Complete Blood Count Auto Di ffon 05-21-2024 Basophils (Bld) [#/Vol] 0.1 10*3/uL Normal 0.0-0.2 [facility] Comment on above: Result Comment: PERF ORMED BY:[address] [place], [place] [phone] MEDICAL DIRECTORCORAL BECKETT M.D. Performed By: #### P T, BMP, PTT, CBC ####[address] Basophils/100 WBC (Bld) 0.8 % Normal . [facility] Comment on above: Performed By: #### P T, BMP, PTT, CBC ####[address] Eosinophils (Bld) [#/Vol] 0.3 10*3/uL Normal 0.0-0.45 [facility] Comment on above: Performed By: #### P T, BMP, PTT, CBC ####[address] Eosinophils/100 WBC (Bld) 2.4 % Normal . [facility] Comment on above: Performed By: #### P T, BMP, PTT, CBC ####[address] Erythrocyte distribution width (RBC) [Ratio] 16.1 % High 11.9-15.3 [facility] Comment on above: Performed By: #### P T, BMP, PTT, CBC ####[address] Hematocrit (Bld) [Volume fraction] 36.6 % Normal 34.0-46.4 [facility] Comment on above: Performed By: #### P T, BMP, PTT, CBC ####[address] Hemoglobin (Bld) [Mass/Vol] 12.0 g/dL Normal 11.8-15.4 [facility] Comment on above: Performed By: #### P T, BMP, PTT, CBC ####[address] Lymphocytes (Bld) [#/Vol] 1.8 10*3/uL Normal 1.00-4.8 [facility] Comment on above: Performed By: #### P T, BMP, PTT, CBC ####[address] Lymphocytes/100 WBC (Bld) 14.2 % Normal . [facility] Comment on above: Performed By: #### P T, BMP, PTT, CBC ####[address] MCH (RBC) [Entitic mass] 32.1 pg Normal 24.7-34.3 [facility] Comment on above: Performed By: #### P T, BMP, PTT, CBC ####[address] MCV (RBC) [Entitic vol] 98.0 fL Normal 80-100 [facility] Comment on above: Performed By: #### P T, BMP, PTT, CBC ####[address] Mean Corpuscular HGB Conc 32.7 g/dL Normal 32.0-35.0 [facility] Comment on above: Performed By: #### P T, BMP, PTT, CBC ####[address] Monocytes (Bld) [#/Vol] 0.8 10*3/uL Normal 0.0-0.8 [facility] Comment on above: Performed By: #### P T, BMP, PTT, CBC ####[address] Monocytes/100 WBC (Bld) 6.4 % Normal . [facility] Comment on above: Performed By: #### P T, BMP, PTT, CBC ####[address] Neutrophils (Bld) [#/Vol] 9.7 10*3/uL High 1.8-7.7 [facility] Comment on above: Performed By: #### P T, BMP, PTT, CBC ####[address] Neutrophils/100 WBC (Bld) 76.2 % Normal . [facility] Comment on above: Performed By: #### P T, BMP, PTT, CBC ####[address] NRBC% 0.1 /100{WBC} Normal 0-0.5 [facility] Comment on above: Performed By: #### P T, BMP, PTT, CBC ####[address] Platelet mean volume (Bld) [Entitic vol] 9.3 fL Normal 6.3-10.7 [facility] Comment on above: Performed By: #### P T, BMP, PTT, CBC ####[address] Platelets (Bld) [#/Vol] 216 10*3/uL Normal 150-450 [facility] Comment on above: Performed By: #### P T, BMP, PTT, CBC ####[address] RBC (Bld) [#/Vol] 3.73 10*6/uL Normal 3.60-5.00 [facility] Comment on above: Performed By: #### P T, BMP, PTT, CBC ####[place] [address] [place] [id number] [facility] WBC (Bld) [#/Vol] 12.8 10*3/uL High 3.8-11.6 [facility] Comment on above: Performed By: #### P T, BMP, PTT, CBC ####[facility] [id number] [place] [id number] [facility] Creatinine [Mass/volume] in Serum or PlasmaOrdered By: Yaniv Natarajan on 05-21-2024 Creatinine [Mass/Vol] Creatinine [Mass/volume] in Serum or Plasma High 0.60-1.20 [facility] Eosinophils Auto (Bld) [#/Vo l]Ordered By: Yaniv Natarajan on 05-21-2024 Eosinophils (Bld) [#/Vol] Automated eosinophil count 0.0-0.45 [facility] Eosinophils/100 WBC Auto (Bl d)Ordered By: Yaniv Natarajan on 05-21-2024 Eosinophils/100 WBC (Bld) Automated eosinophil % . [facility] Erythrocyte distribution wid th Auto (RBC) [Ratio]Ordered By: Yaniv Natarajan on 05-21-2024 Erythrocyte distribution width (RBC) [Ratio] Erythrocyte distribution width [Ratio] by Automated count High 11.9-15.3 [facility] Glucose [Mass/volume] in Ser um or PlasmaOrdered By: Yaniv Natarajan on 05-21-2024 Glucose [Mass/Vol] Glucose [Mass/volume] in Serum or Plasma High 70-100 [facility] Comment on above: ADA recommended refe rence rangeRandom Glucose Reference Range is dependent on time and content of last meal. Glucose of more than 200 mg/dL in a nonstressed, ambulatory subject supports the diagnosis of Diabetes Mellitus. Hematocrit Auto (Bld) [Volum e fraction]Ordered By: Yaniv Natarajan on 05-21-2024 Hematocrit (Bld) [Volume fraction] Hematocrit [Volume Fraction] of Blood by Automated count 34.0-46.4 [facility] Hemoglobin [Mass/volume] in BloodOrdered By: Yaniv Natarajan on 05-21-2024 Hemoglobin (Bld) [Mass/Vol] Hemoglobin [Mass/volume] in Blood 11.8-15.4 [facility] INR in Platelet poor plasma by Coagulation assayOrdered By: Yaniv Natarajan on 05-21-2024 INR Coag (PPP) [Relative time] INR in Platelet poor plasma by Coagulation assay [facility] Comment on above: INR Therapeutic Rang e [...] in Blood by Automated coun High 3.8-11.6 [facility] Lymphocytes Auto (Bld) [#/Vo l]Ordered By: Yaniv Natarajan on 05-21-2024 Lymphocytes (Bld) [#/Vol] Lymphocytes [#/volume] in Blood by Automated count 1.00-4.8 [facility] Lymphocytes/100 WBC Auto (Bl d)Ordered By: Yaniv Natarajan on 05-21-2024 Lymphocytes/100 WBC (Bld) Lymphocytes/100 leukocytes in Blood by Automated count . [facility] MCH Auto (RBC) [Entitic mass ]Ordered By: Yaniv Natarajan on 05-21-2024 MCH (RBC) [Entitic mass] MCH [Entitic mass] by Automated count 24.7-34.3 [facility] MCHC Auto (RBC) [Mass/Vol]Or dered By: Yaniv Natarajan on 05-21-2024 MCHC (RBC) [Mass/Vol] MCHC [Mass/volume] by Automated count 32.0-35.0 [facility] MCV Auto (RBC) [Entitic vol] Ordered By: Yaniv Natarajan on 05-21-2024 MCV (RBC) [Entitic vol] MCV [Entitic volume] by Automated count 80-100 [facility] Monocytes Auto (Bld) [#/Vol] Ordered By: Yaniv Natarajan on 05-21-2024 Monocytes (Bld) [#/Vol] Automated blood monocyte count 0.0-0.8 [facility] Monocytes/100 WBC Auto (Bld) Ordered By: Yaniv Natarajan on 05-21-2024 Monocytes/100 WBC (Bld) Automated monocyte % . [facility] Neutrophils Auto (Bld) [#/Vo l]Ordered By: Yaniv Natarajan on 05-21-2024 Neutrophils (Bld) [#/Vol] Neutrophils [#/volume] in Blood by Automated count High 1.8-7.7 [facility] Neutrophils/100 WBC Auto (Bl d)Ordered By: Yaniv Natarajan on 05-21-2024 Neutrophils/100 WBC (Bld) Automated neutrophil % . [facility] No Panel InformationOrdered By: Yaniv Natarajan on 05-21-2024 Estimated GFR (CKD-EPI) 29.063 mL/Min [facility] Creatinine Clearance (Chem N/A [facility] Nucleated erythrocytes [Pres ence] in Blood by Automated countOrdered By: Yaniv Natarajan on 05-21-2024 Nucleated RBC Auto Ql (Bld) Nucleated erythrocytes [Presence] in Blood by Automated count 0-0.5 [facility] Partial Thromboplastin Timeo n 05-21-2024 aPTT Coag (Bld) [Time] 29.9 s Normal 25.1-36.5 [facility] Comment on above: Result Comment: A he matocrit value greater than 55% may lead to inaccurate results in coagulation testing. Patients having hematocrit values >55% require a special collection tube for coagulation studies. Please contact the laboratory at [phone] for redraw instructions.PERFORMED BY:[facility] [place], [place] [phone] MEDICAL DIRECTORCORAL BECKETT M.D. Performed By: #### P T, BMP, PTT, CBC ####[facility] [place] [id number] [facility] Platelet mean volume Auto (B ld) [Entitic vol]Ordered By: Yaniv Natarajan on 05-21-2024 Platelet mean volume (Bld) [Entitic vol] Platelet mean volume [Entitic volume] in Blood by Automated count 6.3-10.7 [facility] Platelets Auto (Bld) [#/Vol] Ordered By: Yaniv Natarajan on 05-21-2024 Platelets (Bld) [#/Vol] Platelets [#/volume] in Blood by Automated count 150-450 [facility] Potassium [Moles/volume] in Serum or PlasmaOrdered By: Yaniv Natarajan on 05-21-2024 Potassium [Moles/Vol] Potassium [Moles/volume] in Serum or Plasma 3.5-5.1 [facility] Prothrombin Time INRon 05-21 INR Coag (PPP) [Relative time] 1.0 {INR} Normal [facility] Comment on above: Result Comment: [...] By: #### P T, BMP, PTT, CBC ####[facility] [id number] [place] [id number] [facility] PT Coag (PPP) [Time] 11.1 s Normal 9.0-12.9 [facility] Comment on above: Result Comment: A he matocrit value greater than 55% may lead to inaccurate results in coagulation testing. Patients having hematocrit values >55% require a special collection tube for coagulation studies. Please contact the laboratory at [phone] for redraw instructions. Performed By: #### P T, BMP, PTT, CBC ####[facility] [id number] [place] [id number] [facility] Prothrombin time (PT)Ordered By: Yaniv Natarajan on 05-21-2024 PT Coag (PPP) [Time] Prothrombin time (PT) 9.0-12.9 [facility] Comment on above: A hematocrit value g reater than 55% may lead to inaccurate results in coagulation testing. Patients having hematocrit values >55% require a special collection tube for coagulation studies. Please contact the laboratory at [phone] for redraw instructions. RBC Auto (Bld) [#/Vol]Ordere d By: Yaniv Natarajan on 05-21-2024 RBC (Bld) [#/Vol] Erythrocytes [#/volume] in Blood by Automated count 3.60-5.00 [facility] Serum or plasma anion gap de terminationOrdered By: Yaniv Natarajan on 05-21-2024 Anion gap [Moles/Vol] Serum or plasma anion gap determination 6.0-15.0 [facility] Sodium [Moles/volume] in Ser um or PlasmaOrdered By: Yaniv Natarajan on 05-21-2024 Sodium [Moles/Vol] Sodium [Moles/volume] in Serum or Plasma Low 136-145 [facility] Urea nitrogen [Mass/volume] in Serum or PlasmaOrdered By: Yaniv Natarajan on 05-21-2024 Urea nitrogen [Mass/Vol] Urea nitrogen [Mass/volume] in Serum or Plasma High 7-25 [facility] WBC Auto (Bld) [#/Vol]Ordere d By: Yaniv Natarajan on 05-21-2024 WBC (Bld) [#/Vol] Leukocytes [#/volume] in Blood by Automated count High 3.8-11.6 [facility] aPTT in Platelet poor plasma by Coagulation assayOrdered By: Yaniv Natarajan on 05-21-2024 aPTT Coag (PPP) [Time] Activated partial thromboplastin time (aPTT) in platelet poor plasma by coagulation a 25.1-36.5 [facility] Comment on above: A hematocrit value g reater than 55% may lead to inaccurate results in coagulation testing. Patients having hematocrit values >55% require a special collection tube for coagulation studies. Please contact the laboratory at [phone] for redraw instructions. Laboratory - Chemistry and C hemistry - challengeon 04-07-2024 Bilirubin Ql (U) Negative [facility] Glucose (U) [Mass/Vol] Negative [facility] Ketones Ql (U) Negative [facility] pH (U) 7.0 [pH] [facility] Specific gravity (U) [Rel density] 1.010 [facility] Urobilinogen (U) [Mass/Vol] 0.2 mg/dL [facility] Laboratory - Specimen inform ationon 09-25-2024 Appearance (U) cloudy [facility] Color (U) yellow [facility] Laboratory - Urinalysison Leukocyte esterase Test strip Ql (U) large [facility] Nitrite Ql (U) Positive [facility] Protein Ql (U) 30 [facility] No Panel Informationon 04-07 Urine Occult Blood small [facility] Urine cultureOrdered By: Sulema Best on 04-07-2024 Bacteria identified Cx Nom (U) Urine culture [facility] Immunofixation for Urineon 0 03-19-2024 Interpretation Immunofixation (U) [Interp] Comment . [facility] Comment on above: No monoclonality det ected.Performed at: [employer] [id number] [place] [id number] Director: Mohan Talbert PhD, Phone: [phone] Interpretation Immunofixation (U) [Interp] Immunofixation for Urine . [facility] Comment on above: No monoclonality det ected.Performed at: [employer] [place], [place] [id number] Director: Mohan Talbert PhD, Phone: [phone] Laboratory - Chemistry and C hemistry - challengeon 03-19-2024 Bilirubin Ql (U) Negative NEGATIVE [facility] Glucose (U) [Mass/Vol] Negative NEGATIVE [facility] Ketones Ql (U) Negative NEGATIVE [facility] pH (U) 6.0 [pH] 5.0-9.0 [facility] Specific gravity (U) [Rel density] 1.010 1.005-1.025 [facility] Urobilinogen Qn (U) 0.2 {Joe'U}/dL 0.2-1.0 [facility] Laboratory - Specimen inform ationon 03-19-2024 Appearance (U) SL CLOUDY CLEAR [facility] Color (U) YELLOW YELLOW [facility] Laboratory - Urinalysison Leukocyte esterase Test strip Ql (U) LARGE Abnormal NEGATIVE [facility] Mucus Ql (Urine sed) NONE SEEN NONE SEEN [facility] Nitrite Ql (U) Positive Abnormal NEGATIVE [facility] Protein (U) [Mass/Vol] 77.9 mg/dL High <=11.9 [facility] Protein Ql (U) 100 mg/dL Abnormal NEG/TRACE [facility] No Panel Informationon 03-19 Urine Bacteria MODERATE #/HPF Abnormal NONE SEEN [facility] Urine Occult Blood SMALL Abnormal NEGATIVE [facility] Urine Other Casts NONE SEEN #/LPF NONE SEEN [facility] Urine Other Crystals None Seen #/HPF None Seen [facility] Urine Random Creatinine 25.17 mg/dL 20.00-300.00 [facility] Urine RBC 2-5 #/HPF Abnormal 0-2 [facility] Urine Squamous Epithelial Cells FEW #/LPF Abnormal NONE/RARE [facility] Urine WBC >100 #/HPF Abnormal NONE SEEN [facility] Urine protein/creatinine rat ioon 03-19-2024 Protein/Creatinine (U) [Ratio] 3.09 [facility] Protein/Creatinine (U) [Ratio] Urine protein/creatinine ratio [facility] Albumin [Mass/volume] in Ser um or Plasmaon 03-17-2024 Albumin [Mass/Vol] 3.2 g/dL 2.9-4.[address] [facility] Albumin [Mass/Vol] Albumin [Mass/volume] in Serum or Plasma 2.9-4.4 [facility] Erythrocyte distribution wid th Auto (RBC) [Ratio]on 03-17-2024 Erythrocyte distribution width (RBC) [Ratio] 15.3 % High 11.0-15.0 [facility] Erythrocyte distribution width (RBC) [Ratio] Erythrocyte distribution width [Ratio] by Automated count High 11.0-15.0 [facility] Estimated glomerular filtrat ion rate (GFR) non- Americanon 03-17-2024 GFR/1.73 sq M.predicted among non-blacks MDRD (S/P/Bld) [Vol rate/Area] 29 mL/min/{1.73_m2} Low >=60 [facility] GFR/1.73 sq M.predicted among non-blacks MDRD (S/P/Bld) [Vol rate/Area] Estimated glomerular filtration rate (GFR) non- Low >=60 [facility] Hematocrit Auto (Bld) [Volum e fraction]on 03-17-2024 Hematocrit (Bld) [Volume fraction] 37.9 % 36.0-48.0 [facility] Hematocrit (Bld) [Volume fraction] Hematocrit [Volume Fraction] of Blood by Automated count 36.0-48.0 [facility] Hemoglobin [Mass/volume] in Bloodon 03-17-2024 Hemoglobin (Bld) [Mass/Vol] 11.6 g/dL Low 12.0-16.0 [facility] Hemoglobin (Bld) [Mass/Vol] Hemoglobin [Mass/volume] in Blood Low 12.0-16.0 [facility] IgA [Mass/volume] in Serum o r Plasmaon 03-17-2024 IgA [Mass/Vol] 366 mg/dL 64-422 [facility] IgA [Mass/Vol] IgA [Mass/volume] in Serum or Plasma 64-422 [facility] IgG [Mass/volume] in Serum o r Plasmaon 03-17-2024 IgG [Mass/Vol] 1043 mg/dL [phone] [facility] IgG [Mass/Vol] IgG [Mass/volume] in Serum or Plasma [phone] [facility] IgM [Mass/volume] in Serum o r Plasmaon 03-17-2024 IgM [Mass/Vol] 87 mg/dL 26-217 [facility] IgM [Mass/Vol] IgM [Mass/volume] in Serum or Plasma 26-217 [facility] Immunoglobulin light chains. kappa.free [Mass/volume] in Serumon 03-17-2024 Immunoglobulin light chains.kappa.free (S) [Mass/Vol] 112.4 mg/L Abnormal 3.3-19.4 [facility] Immunoglobulin light chains.kappa.free (S) [Mass/Vol] Immunoglobulin light chains.kappa.free [Mass/volume] in Serum Abnormal 3.3-19.4 [facility] Immunoglobulin light chains. kappa.free/Immunoglobulin light chains.lambda.free [Radha 03-17-2024 Immunoglobulin light chains.kappa.free/I mmunoglobulin light chains.lambda.free (S) [Mass ratio] 1.84 Abnormal 0.26-1.65 [facility] Comment on above: Performed at: [employer] [id number] [place], [place] [id number] Director: Mohan Talbert PhD, Phone: [phone] Immunoglobulin light chains.kappa.free/I mmunoglobulin light chains.lambda.free (S) [Mass ratio] Immunoglobulin light chains.kappa.free/I mmunoglobulin light chains.lambda.free [Mass Abnormal 0.26-1.65 [facility] Comment on above: Performed at: [employer] [id number] [place], [place] [id number] Director: Mohan Talbert PhD, Phone: [phone] Immunoglobulin light chains. lambda.free [Mass/volume] in Serum or Plasmaon 03-17-2024 Immunoglobulin light chains.lambda.free [Mass/Vol] 61.0 mg/L Abnormal 5.7-26.3 [facility] Immunoglobulin light chains.lambda.free [Mass/Vol] Immunoglobulin light chains.lambda.free [Mass/volume] in Serum or Plasma Abnormal 5.7-26.3 [facility] Iron binding capacity [Mass/ volume] in Serum or Plasmaon 03-17-2024 Iron binding capacity [Mass/Vol] 256.0 ug/dL 250.0-450.0 [facility] Iron binding capacity [Mass/Vol] Iron binding capacity [Mass/volume] in Serum or Plasma 250.0-450.0 [facility] Iron saturation [Mass Fracti on] in Serum or Plasmaon 03-17-2024 Iron saturation [Mass fraction] 25.4 % [facility] Iron saturation [Mass fraction] Iron saturation [Mass Fraction] in Serum or Plasma [facility] Laboratory - Chemistry and C hemistry - challengeon 03-17-2024 Albumin [Mass/Vol] 3.1 g/dL Low 3.4-5.[address] [facility] Calcium [Mass/Vol] 9.8 mg/dL 8.5-10.[address] [facility] Chloride [Moles/Vol] 100 mmol/L 98-107 [facility] CO2 [Moles/Vol] 29.6 mmol/L 21.0-32.0 [facility] Cobalamin (Vitamin B12) [Mass/Vol] 456 pg/mL 232-1245 [facility] Comment on above: Performed at: - [address] [id number] Director: Mohan Talbert PhD, Phone: [phone] Creatinine [Mass/Vol] 1.71 mg/dL High 0.55-1.02 [facility] Ferritin [Mass/Vol] 174.0 ng/mL 8.0-252.0 [facility] GFR/1.73 sq M.predicted MDRD (S/P/Bld) [Vol rate/Area] 35 mL/min/{1.73_m2} Low >=60 [facility] Glucose [Mass/Vol] 137 mg/dL High 74-[address] [facility] Iron [Mass/Vol] 65.0 ug/dL 50.0-170.0 [facility] Magnesium [Mass/Vol] 1.9 mg/dL 1.8-2.4 [facility] Potassium [Moles/Vol] 4.1 mmol/L 3.5-5.1 [facility] Sodium [Moles/Vol] 140 mmol/L 136-[address] [facility] Urate [Mass/Vol] 4.6 mg/dL 2.6-6.0 [facility] Urea nitrogen [Mass/Vol] 37.0 mg/dL High 7.0-18.0 [facility] Urea nitrogen/Creatinine [Mass ratio] 21.6 mg/mg [facility] Leukocytes [#/volume] correc suzi for nucleated erythrocytes in Blood by Automated counon 03-17-2024 WBC corrected for nucl RBC Auto (Bld) [#/Vol] 9.1 10 3/uL 4.0-11.0 [facility] WBC corrected for nucl RBC Auto (Bld) [#/Vol] Leukocytes [#/volume] corrected for nucleated erythrocytes in Blood by Automated coun 4.0-11.0 [facility] MCH Auto (RBC) [Entitic mass ]on 03-17-2024 MCH (RBC) [Entitic mass] 31.2 pg 26.7-34.0 [facility] MCH (RBC) [Entitic mass] MCH [Entitic mass] by Automated count 26.7-34.0 [facility] MCHC Auto (RBC) [Mass/Vol]on 03-17-2024 MCHC (RBC) [Mass/Vol] 30.6 g/dL 29.9-35.2 [facility] MCHC (RBC) [Mass/Vol] MCHC [Mass/volume] by Automated count 29.9-35.2 [facility] MCV Auto (RBC) [Entitic vol] on 03-17-2024 MCV (RBC) [Entitic vol] 101.9 fL High 81.0-99.0 [facility] MCV (RBC) [Entitic vol] MCV [Entitic volume] by Automated count High 81.0-99.0 [facility] No Panel Informationon 03-17 25-Hydroxy Vitamin D Total 91.3 ng/mL [facility] Comment on above: <20 ng/mL Vit D defi cient20-<30 ng/mL Vit D btdbcbrwhokk00-645 ng/mL Vit D sufficient>100 ng/mL Potential Toxicity Folate 19.10 ng/mL 8.60-58.90 [facility] Parathyroid Hormone (Intact) 28 pg/mL 15-65 [facility] Comment on above: Performed at: [address] [id number] Director: Mohan Talbert PhD, Phone: [phone] Phosphorus Level 3.6 mg/dL 2.6-4.7 [facility] Protein Electrophoresis M-Rafiq Not Observed g/dL Not Observed [facility] Protein Electrophoresis Note Comment . [facility] Comment on above: Protein electrophore sis scan will follow via computer,mail, or fish worm grower delivery. Platelet mean volume Auto (B ld) [Entitic vol]on 03-17-2024 Platelet mean volume (Bld) [Entitic vol] 11.5 fL 9.5-13.5 [facility] Platelet mean volume (Bld) [Entitic vol] Platelet mean volume [Entitic volume] in Blood by Automated count 9.5-13.5 [facility] Platelets Auto (Bld) [#/Vol] on 03-17-2024 Platelets (Bld) [#/Vol] 232 10 3/uL 150-450 [facility] Platelets (Bld) [#/Vol] Platelets [#/volume] in Blood by Automated count 150-450 [facility] Protein [Mass/volume] in Ser um or Plasmaon 03-17-2024 Protein [Mass/Vol] 6.9 g/dL 6.0-8.[address] [facility] Protein [Mass/Vol] Protein [Mass/volume] in Serum or Plasma 6.0-8.5 [facility] RBC Auto (Bld) [#/Vol]on RBC (Bld) [#/Vol] 3.72 10 6/uL Low 4.20-5.40 [facility] RBC (Bld) [#/Vol] Erythrocytes [#/volume] in Blood by Automated count Low 4.20-5.40 [facility] Serum globulin measurement ( mass/volume)on 03-17-2024 Globulin (S) [Mass/Vol] 3.7 g/dL 2.2-3.9 [facility] Globulin (S) [Mass/Vol] Serum globulin measurement (mass/volume) 2.2-3.9 [facility] Serum or plasma albumin/glob ulin mass ratioon 03-17-2024 Albumin/Globulin [Mass ratio] 0.9 {ratio} 0.7-1.7 [facility] Albumin/Globulin [Mass ratio] Serum or plasma albumin/globulin mass ratio 0.7-1.7 [facility] Serum or plasma alpha 1 glob ulin measurement by electrophoresis (mass/volume)on 03-17-2024 Alpha 1 globulin Elph [Mass/Vol] 0.3 g/dL 0.0-0.4 [facility] Alpha 1 globulin Elph [Mass/Vol] Serum or plasma alpha 1 globulin measurement by electrophoresis (mass/volume) 0.0-0.4 [facility] Serum or plasma alpha 2 glob ulin measurement by electrophoresis (mass/volume)on 03-17-2024 Alpha 2 globulin Elph [Mass/Vol] 1.3 g/dL Abnormal 0.4-1.0 [facility] Alpha 2 globulin Elph [Mass/Vol] Serum or plasma alpha 2 globulin measurement by electrophoresis (mass/volume) Abnormal 0.4-1.0 [facility] Serum or plasma anion gap de terminationon 03-17-2024 Anion gap [Moles/Vol] 14.5 mmol/L [facility] Anion gap [Moles/Vol] Serum or plasma anion gap determination [facility] Serum or plasma beta globuli n measurement by electrophoresis (mass/volume)on 03-17-2024 Beta globulin Elph [Mass/Vol] 1.0 g/dL 0.7-1.3 [facility] Beta globulin Elph [Mass/Vol] Serum or plasma beta globulin measurement by electrophoresis (mass/volume) 0.7-1.3 [facility] Serum or plasma gamma globul in measurement by electrophoresis (mass/volume)on 03-17-2024 Gamma globulin Elph [Mass/Vol] 1.1 g/dL 0.4-1.8 [facility] Gamma globulin Elph [Mass/Vol] Serum or plasma gamma globulin measurement by electrophoresis (mass/volume) 0.4-1.8 [facility] Serum or plasma immunoelectr ophoresis interpretationon 03-17-2024 Interpretation IEP [Interp] Comment: . [facility] Comment on above: Presence of monoclon al protein is unclear at this time. Suggestrepeat in 3 to 6 months if clinically indicated. Interpretation IEP [Interp] Serum or plasma immunoelectrophores is interpretation . [facility] Comment on above: Presence of monoclon al protein is unclear at this time. Suggestrepeat in 3 to 6 months if clinically indicated. Coding Queryon 03-09-2024 Coding Query Coding Query -- From: Sagar RN, Giovana To: KADE MARLOW, Brennenfo; Cc: [place]; Sent: 03/09/2024 10:41:21 EDT ! Subject: Coding Query Due Date/Time: 03/10/2024 10:40:00 EDT Caller Name: LEXI TATUM; Caller Number: , M Documentation in the medical record [...] suprapubic pain. She was subsequently admitted to [facility] with acute metabolic encephalopathy secondary to [...] you! Giovana [phone] -- From: KADE MARLOW, [facility] To: Sagar ROB, Giovana; Sent: 03/09/2024 10:53:27 EDT Subject: RE: Coding Query Caller Name: LEXI TATUM; Caller Number: , E. coli urinary tract infection?secondary to ureteral stent. Present on admission. Thank you. Normal [facility] ED Note-Physicianon 03-04-20 ED Note-Physician ED Note-Physician Basic Information Time Seen: Rudy Gupta PA-C 02/26/2024 17:30 Chief Complaint To [...] has a cardiac history and follows with [facility] cardiology. 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 On deep vein thrombosis (DVT) prophylaxis (Z79.899: Other senior living (current) drug therapy) Orders: Sodium Chloride 0.9% [...] made to ensure accuracy, however, inadvertently computerized heel seat fitter machine mistakes may be present. Appropriate healthcare PPE was used in evaluating this patient. Problem List/Past Medical History Ongoing Chronic kidney disease, stage 3 unspecified Class 3 severe obesity with serious comorbidity in adult Diabetic pe (more content not included)... Normal [facility] Comment on above: Result Comment: Elec tronically Signed By: Rudy Gupta PA-C\.br\Date and Time Signed: 02/26/24 19:01 EDT\.br\Electronically Co-Signed By: Baljit Hawkins MD\.br\Date and Time Co-Signed: 03/04/24 22:01 EDT Troponin 1 Hr.on 03-03-2024 Troponin HS 70.30 pg/mL Abnormal 10.10-27.10 [facility] Comment on above: Order Comment: 183 Result Comment: Crit ical Result Verified by Previous Result Called to Rudy Patrick RN @1833 02/26/2024 [facility] The 95% CI (Confidence Interval) PPV (Positive Predictive Value) for myocardial infarction in females is 38 pg/mL, in males 51 pg/mL. The results should be used in conjunction with clinical conditions of myocardial infarction. (EpiSensor High Sensitivity Troponin I Instructions For Use, [employer], February 2018) Critical Result Verified by Previous Result The 95% CI (Confidence Interval) PPV (Positive Predictive Value) for myocardial infarction in females is 38 pg/mL, in males 51 pg/mL. The results should be used in conjunction with clinical conditions of myocardial infarction. (EpiSensor High Sensitivity Troponin I Instructions For Use, [employer], February 2018) Performed By: #### 1 [id number] #### [facility] [address] [place] [address] [employer] [place] Message Officeon [employer] Office [employer] [place] Message Office --- --- --- --- --- --- --- --- --- From: Mayra DirectInbox To: LEXI TATUM Sent: 03/01/24 02:30:40 AM EDT Subject: Discharge Summary Ready to View A summary regarding your recent visit is available in the Documents section of your health record. Normal [facility] C Urineon 02-29-2024 Bacteria identified Cx Nom (U) Microbiology PROCEDURE: Urine Culture [R1] SOURCE: U CleanCatch BODY SITE: COLLECTED DATE/TIME: 02/27/2024 03:19 EDT RECEIVED DATE/TIME: 02/27/2024 04:04 EDT START DATE/TIME: 02/27/2024 04:12 EDT FREE TEXT SOURCE: Allison CHANCE MD, MD, Allison FINAL REPORTS Final Report [] [...] Locations R1: This test was performed at: [facility], [address] [place] [address], [id number]- , [place], Normal [facility] Comment on above: Performed By: #### 2 [id number] #### [facility] [address] [place] [address] CHEMISTRYOrdered By: Lab ROP User on 02-29-2024 Glucose [Mass/Vol] 137 mg/dL High 55 - 99 mg/dL [facility] C POC Subsection Comment on above: Result Comment: Tomas PERLA POC Device SN [id number] 1 Invalid Interpretation Code [facility] POC Subsection POC User ID [id number] 1 Invalid Interpretation Code [facility] POC Subsection POC Username JIE MONK Invalid Interpretation Code [facility] POC Subsection Glucose [Mass/Vol] 130 mg/dL High 55 - 99 mg/dL [facility] C POC Subsection Comment on above: Result Comment: Tomas PERLA POC Device SN [id number] 1 Invalid Interpretation Code [facility] POC Subsection POC User ID [id number] 1 Invalid Interpretation Code [facility] POC Subsection POC Username JIE MONK Invalid Interpretation Code FT POC Subsection Capillary Glucose POCon 02-11 Glucose [Mass/Vol] 137 mg/dL High 55-99 [facility] Comment on above: Result Comment: Tomas PERLA Performed By: #### 2 [id number] #### [facility] [address] [place] [address] Glucose [Mass/Vol] 130 mg/dL High 55-99 [facility] Comment on above: Result Comment: Tomas PERLA Performed By: #### 2 [id number] #### [facility] [address] [place] [address] Discharge Note-Nursingon Discharge Note-Nursing Discharge Note-Nursing LEXI TATUM :1945 Visit Date:02/26/2024 Inpatient Discharge Instructions Your Care Team Admitting Physician - KADE MARLOW, [facility] Reason for Your Visit Fatigue Your Diagnosis [...] BEST When: 03/05/2024 01:45 PM EDT Where: [address] [place] [phone] Business (1) Medications What How Much When Why Instructions Next Dose New cephalexin (Keflex 500 mg Cap) 1 Capsules By Mouth 3 times a day Urinary tract infection Duration: 4 Days Pickup at [facility] 03/01/2024 @ 9:00 AM Unchanged acetaminophen [...] Pharmacy Information [facility]: [address] [facility] (more content not included)... Normal [facility] [id number] 02-29-2024 HbA1c (Bld) [Mass fraction] 7.4 % High <=5.9 [facility] Comment on above: Performed By: #### 7 [id number] #### [facility] [address] [place] [address] Inpatient Clinical Summaryon 02-29-2024 Inpatient Clinical Summary Inpatient Clinical Summary [address] [address] Clinical Summary Person Information: Name: LEXI TATUM Age: 78 Years : 1945 Sex: Female PCP: STEFAN BEST MD Marital Status: Race: White Ethnicity: Non- or Language: [place]an Visit Id: Visit Reason: Chest pain; ALOC Speciality: Acuity: Enc Type: Inpatient Med Service: Medical Arrival: 02/26/2024 17:28:58 Discharge: Dispo Type: Admitted as IP to this Hosp Address: [address] [place] [id number] Provider Notes: Diagnosis: 1:Acute metabolic encephalopathy; 2:Sepsis; [...] Follow up: With: Address: When: STEFAN BEST [address] [place] [address] Business (1) 03/05/2024 1:45 PM Patient Education Information: Normal [facility] Inpatient Patient Summaryon 02-29-2024 Inpatient Patient Summary Inpatient Patient Summary [address] [address] Patient Discharge Instructions PERSON INFORMATION [...] None Follow up: With: Address: When: STEFAN SAGE [address] [place] [facility] [place] [address] Business (03/05/2024 1:45 PM In the event that this [...] New Medications [facility], [address] [facility] [place] [id number], [phone] cephalexin (Keflex 500 mg Cap) 1 Capsules [...] Tablets every day. 30 tab(s)., Responsible Provider: Shahrzad Morales Last Dose: Next Dose: gabapentin (gabapentin [...] AC&HS. Refills (more content not included)... Normal [facility] BMPon 02-28-2024 Anion gap [Moles/Vol] 12 mmol/L Normal 12-27 [facility] Comment on above: Performed By: #### 2 [id number] #### [facility] [address] [place] [address] Calcium [Mass/Vol] 8.8 mg/dL Low 8.9-11.1 [facility] Comment on above: Performed By: #### 2 [id number] #### [facility] [address] [place] [address] Chloride [Moles/Vol] 104 mmol/L Normal 101-111 [facility] Comment on above: Performed By: #### 2 [id number] #### [facility] [address] [place] [address] CO2 [Moles/Vol] 25 mmol/L Normal 21-31 [facility] Comment on above: Performed By: #### 2 [id number] #### [facility] [address] [place] [address] Creatinine [Mass/Vol] 1.5 mg/dL High 0.5-1.3 [facility] Comment on above: Performed By: #### 2 [id number] #### [facility] [address] [place] [address] Glucose [Mass/Vol] 53 mg/dL Low 55-199 [facility] Comment on above: Performed By: #### 2 [id number] #### [facility] [address] [place] [address] Potassium [Moles/Vol] 4.5 mmol/L Normal 3.5-5.3 [facility] Comment on above: Performed By: #### 2 [id number] #### [facility] [address] [place] [address] Sodium [Moles/Vol] 136 mmol/L Normal 135-145 [facility] Comment on above: Performed By: #### 2 [id number] #### [facility] [address] [place] [address] Urea nitrogen [Mass/Vol] 36 mg/dL High 5-21 [facility] Comment on above: Performed By: #### 2 [id number] #### [facility] [address] [place] [address] Urea nitrogen/Creatinine [Mass ratio] 24 No Units High 10-20 [facility] Comment on above: Performed By: #### 2 [id number] #### [facility] [address] [place] [address] CHEMISTRYOrdered By: Lab ROP User on 02-28-2024 Glucose [Mass/Vol] 132 mg/dL High 55 - 99 mg/dL [facility] C POC Subsection Comment on above: Result Comment: Tomas saleem RN/ POC Device SN [id number] 1 Invalid Interpretation Code [facility] [place] [place] POC Subsection POC User ID [id number] 1 Invalid Interpretation Code [facility] [place] [place] POC Subsection POC Username ANTONELLA MUNGUIA Invalid Interpretation Code [facility] [place] [place] POC Subsection CHEMISTRYOrdered By: SYSTEM SYSTEM on [...] 02-11 Glucose [Mass/Vol] 132 mg/dL High 55-99 [facility] Comment on above: Result Comment: Tomas PERLA Performed By: #### 2 [id number] #### [facility] [address] [place] [address] Glucose [Mass/Vol] 118 mg/dL High 55-99 [facility] Comment on above: Result Comment: Tomas saleem RN/ Performed By: #### 2 [id number] #### [facility] [address] [place] [address] Glucose [Mass/Vol] 229 mg/dL High 55-99 [facility] Comment on above: Result Comment: Tomas saleem RN/ Performed By: #### 2 [id number] #### [facility] [address] [place] [address] Glucose [Mass/Vol] 229 mg/dL High 55-99 [facility] Comment on above: Performed By: #### 2 [id number] #### [facility] [address] [place] [address] Glucose [Mass/Vol] 56 mg/dL Normal 55-99 [facility] Comment on above: Result Comment: Tomas saleem RN/ Performed By: #### 2 [id number] #### [facility] [address] [place] [address] Extra Higgins 02-28-2024 WB Tube Collected Yes Invalid Interpretation Code [facility] Comment on above: Performed By: #### 1 [id number] #### [facility] [address] [place] [address] eGFRon 02-28-2024 eGFR 35 mL/min/1.73 m2 Low >=59 [facility] Comment on above: Order Comment: Order added by Discern Expert. Performed By: #### 1 [id number] #### [facility] [address] [place] [address] BMPon 02-27-2024 Anion gap [Moles/Vol] 12 mmol/L Normal 6-16 [facility] Comment on above: Performed By: #### 2 [id number] #### [facility] [address] [place] [address] Calcium [Mass/Vol] 8.4 mg/dL Low 8.9-11.1 [facility] Comment on above: Performed By: #### 2 [id number] #### [facility] [address] [place] [address] Chloride [Moles/Vol] 104 mmol/L Normal 101-111 [facility] Comment on above: Performed By: #### 2 [id number] #### [facility] [address] [place] [address] CO2 [Moles/Vol] 25 mmol/L Normal 21-31 [facility] Comment on above: Performed By: #### 2 [id number] #### [facility] [address] [place] [address] Creatinine [Mass/Vol] 1.6 mg/dL High 0.5-1.3 [facility] Comment on above: Performed By: #### 2 [id number] #### [facility] [address] [place] [address] Glucose [Mass/Vol] 182 mg/dL Normal 55-199 [facility] Comment on above: Performed By: #### 2 [id number] #### [facility] [address] [place] [address] Potassium [Moles/Vol] 4.6 mmol/L Normal 3.5-5.3 [facility] Comment on above: Performed By: #### 2 [id number] #### [facility] [address] [place] [address] Sodium [Moles/Vol] 136 mmol/L Normal 135-145 [facility] Comment on above: Performed By: #### 2 [id number] #### [facility] [address] [place] [address] Urea nitrogen [Mass/Vol] 40 mg/dL High 5-21 [facility] Comment on above: Performed By: #### 2 [id number] #### [facility] [address] [place] [address] Urea nitrogen/Creatinine [Mass ratio] 25 No Units High 10-20 [facility] Comment on above: Performed By: #### 2 [id number] #### [facility] [address] [place] [address] CBC w/ Auto Diffon 08-16-202 4 Basophils/100 WBC (Bld) 0.3 % Normal 0.0-2.0 [facility] Comment on above: Performed By: #### 2 [id number] #### [facility] [address] [place] [address] Basophils/Leukocyte s Auto (Bld) [Pure # fraction] 0.0 E9/L Normal 0.0-0.2 [facility] Comment on above: Performed By: #### 2 [id number] #### [facility] [address] [place] [address] Eosinophils (Bld) [#/Vol] 0.0 E9/L Normal 0.0-0.5 [facility] Comment on above: Performed By: #### 2 [id number] #### [facility] [address] [place] [address] Eosinophils/100 WBC (Bld) 0.3 % Normal 0.0-8.0 [facility] Comment on above: Performed By: #### 2 [id number] #### [facility] [address] [place] [address] Erythrocyte distribution width (RBC) [Ratio] 16.2 % High 10.9-14.2 [facility] Comment on above: Performed By: #### 2 [id number] #### [facility] [address] [place] [address] Hematocrit (Bld) [Volume fraction] 34.2 % Normal 34.0-46.0 [facility] Comment on above: Performed By: #### 2 [id number] #### [facility] [address] [place] [address] Hemoglobin (Bld) [Mass/Vol] 11.0 g/dL Low 12.0-16.0 [facility] Comment on above: Performed By: #### 2 [id number] #### [facility] [address] [place] [address] Lymphocytes (Bld) [#/Vol] 0.8 E9/L Low 1.0-4.0 [facility] Comment on above: Performed By: #### 2 [id number] #### [facility] [address] [place] [address] Lymphocytes/100 WBC (Bld) 8.7 % Low 14.0-50.0 [facility] Comment on above: Performed By: #### 2 [id number] #### [facility] [address] [place] [address] MCH (RBC) [Entitic mass] 32.0 pg Normal 27.0-34.0 [facility] Comment on above: Performed By: #### 2 [id number] #### [facility] [address] [place] [address] MCHC (RBC) [Mass/Vol] 32.2 g/dL Normal 31.4-36.0 [facility] Comment on above: Performed By: #### 2 [id number] #### [facility] [address] [place] [address] MCV (RBC) [Entitic vol] 99.4 fL Normal 80.0-100.0 [facility] Comment on above: Performed By: #### 2 [id number] #### [facility] [address] [place] [address] Monocytes (Bld) [#/Vol] 0.7 E9/L Normal 0.2-1.0 [facility] Comment on above: Performed By: #### 2 [id number] #### [facility] [address] [place] [address] Neutrophils (Bld) [#/Vol] 7.9 E9/L High 2.0-7.5 [facility] Comment on above: Performed By: #### 2 [id number] #### [facility] [address] [place] [address] Neutrophils/100 WBC (Bld) 83.7 % High 36.0-75.0 [facility] Comment on above: Performed By: #### 2 [id number] #### [facility] [address] [place] [address] Platelet mean volume (Bld) [Entitic vol] 9.0 fL Normal 6.4-10.8 [facility] Comment on above: Performed By: #### 2 524012 #### [facility] [address] [place] [address] Platelets (Bld) [#/Vol] 215.0 E9/L Normal 150.0-500.0 [facility] Comment on above: Performed By: #### 2 [id number] #### [facility] [address] [place] [address] RBC (Bld) [#/Vol] 3.4 E12/L Low 4.3-5.9 [facility] Comment on above: Performed By: #### 2 [id number] #### [facility] [address] [place] [address] WBC corrected for nucl RBC Auto (Bld) [#/Vol] 9.5 E9/L Normal 4.0-11.0 [facility] Comment on above: Performed By: #### 2 [id number] #### [facility] [address] [place] [address] CHEMISTRYOrdered By: SYSTEM SYSTEM on 02-27-2024 Anion [...] High Sensitivity Troponin I Instructions For Use, [employer], February 2018) CHEMISTRYOrdered By: Bre Heart on 02-27-2024 HbA1c (Bld) [Mass fraction] 7.4 % High <=5.9% [facility] [place] [place] ChemAutoSS CT Head or Brain w/o Contras [...] paranasal sinuses are essentially clear. Ordering Provider: Rudy Gupta FINAL REPORT Dictated: 02/27/2024 8:11 am Oscar Brady MD Signed (Electronic Signature): 02/27/2024 8:11 am Signed by: Oscar Brady MD Transcribed by: NIKKI Technologist: ALEX Normal [facility] Capillary Glucose POCon 02-11 Glucose [Mass/Vol] 181 mg/dL High 55-99 [facility] Comment on above: Result Comment: Tomas saleem RN/ Performed By: #### 2 [id number] #### [facility] [address] [place] [address] Glucose [Mass/Vol] 153 mg/dL High 55-99 [facility] Comment on above: Performed By: #### 2 [id number] #### [facility] [address] [place] [address] Glucose [Mass/Vol] 147 mg/dL High 55-99 [facility] Comment on above: Result Comment: Tomas PERLA Performed By: #### 2 [id number] #### [facility] [address] [place] [address] Glucose [Mass/Vol] 159 mg/dL High 55-99 [facility] Comment on above: Performed By: #### 2 [id number] #### [facility] [address] [place] [address] Coding Queryon 02-27-2024 Coding Query Coding Query -- From: Deana Puckett RN To: KADE MARLOW, [facility]; Sent: 02/27/2024 07:17:42 EDT Subject: Coding Query [...] particular answer is desired or expected. Thank you!deana [phone] -- From: Allison CHANCE MD To: Deana Puckett RN; Sent: 02/27/2024 08:39:01 EDT Subject: RE: Coding Query Caller Name: LEXI TATUM; Caller Number: Giovanni , M Thank you. [facility] Coding Query Coding Query -- From: Deana Puckett RN To: Allison CHANCE MD; Sent: 02/27/2024 07:12:49 EDT ! Subject: Coding Query Due Date/Time: 02/28/2024 07:12:00 EDT Caller Name: LEXI TATUM; Caller Number: Giovanni , Documentation in the medical record indicates [...] particular answer is desired or expected. Thank you!deana [phone] -- From: Allison CHANCE MD To: Deana Puckett RN; Sent: 02/27/2024 08:38:27 EDT Subject: RE: Coding Query Caller Name: LEXI TATUM; Caller Number: H , M No Sepsis- POA; Had AMS also Normal [facility] Coding Query Coding Query -- From: Deana Puckett RN To: Allison CHANCE MD; Sent: [...] particular answer is desired or expected. Thank you!deana Jimenez [facility] Coding Query Coding Query -- From: Deana Puckett RN To: KADE MARLOW, Allison; Sent: 02/27/2024 07:12:49 EDT ! Subject: Coding [...] particular answer is desired or expected. Thank you!deana Jimenez [facility] HEMATOLOGYOrdered By: SYSTEM SYSTEM on 02-27-2024 [...] - 11.0 E9/L Remisol Heme Inpatient Clinical Summary 02-27-2024 Inpatient Clinical Summary Inpatient Clinical Summary [place] [id number] Clinical Summary Person Information: Name: LEXI TATUM Age: 78 Years : 1945 Sex: Female PCP: STEFAN BEST MD Marital Status: Race: White Ethnicity: Non- or Language: Sierra Leonean Visit Id: Visit Reason: Chest pain; ALOC Speciality: Acuity: Enc Type: Inpatient Med Service: Medical Arrival: 02/26/2024 17:28:58 Discharge: Dispo Type: Admitted as IP to this Hosp Address: [address] [place] [address] [id number] Provider Notes: Diagnosis: 1:Acute metabolic encephalopathy; 2:Sepsis; [...] Refills: 1. Care Team Members: Attending Physician: KADE MARLOW, Allison Consulting Physician: Referring Physician: Follow up: With: Address: When: STEFAN BEST [address] [place] [address] Business (1) Patient Education Information: Normal [facility] Inpatient Patient Summaryon 02-27-2024 Inpatient Patient Summary Inpatient Patient Summary [place] [id number] Patient Discharge Instructions PERSON INFORMATION Name: LEXI [...] results: Follow up: With: Address: When: STEFAN BEST [address] [place], [place] [id number] Business (1) In the event that this physician does not participate in your insurance network, please consult with your insurance company to find a nearby participating provider. Comment: IRC SANDRA L, have received the attached patient [...] Tablets every day. 30 tab(s)., Responsible Provider: Shahrzad Morales Last Dose: Next Dose: gabapentin (gabapentin [...] Dose: rosuvasta (more content not included)... Normal [facility] Interdisciplinary Note - Tejas e Manageron 02-27-2024 Interdisciplinary Note - Printed Circuit Board Panels Plater Interdisciplinary Note - Printed Circuit Board Panels Plater CRM to room to discuss DC planning. [...] 3 M stay and could DC 02/28 [facility] accepted if that is plan at DC Patient does not want a shared room and said she will just DC home with HH Normal [facility] Comment on above: Result Comment: Naseem alatorreally Signed By: Stacie Watts\.mane\Date and Time Signed: 02/27/24 15:22 EDT Interdisciplinary [...] to follow Friday-Friday, progressing as tolerates. Normal [facility] Interdisciplinary Note - PTo n 02-27-2024 Interdisciplinary Note - PT Interdisciplinary Note - PT Initial PT eval completed. 6 Clicks AM-PAC . Recommend SNF vs HH PT. FAmily concern with safety at home alone when they are working. Spouse also to have TKA next week. Pt would benefit from strengthening prior to pending LIVIER. Will see daily. Normal [facility] Interdisciplinary Note - Soc ial Workeron 02-27-2024 Interdisciplinary Note - Plant Packer Interdisciplinary Note - Plant Packer There was a system generated request for [...] if there are any further questions. Normal [facility] Lactic Acidon 02-27-2024 Lactic Acid Lvl 1.4 mmol/L Normal 0.5-2.2 [facility] Comment on above: Performed By: #### 2 [id number] #### [facility] [address] [place] [address] TOBRAMYCIN:SUSC:PT:ISOLATE:O RDQN:MICOrdered By: Elisa Love on 02-27-2024 Tobramycin JOHAN [Susc] 20,000 cfu/ml Escherichia coli [facility] Tobramycin JOHAN [Susc]Ordered By: Elisa Love on 02-27-2024 Escherichia coli Escherichia coli [facility] Troponin 6 Hr.on 02-27-2024 Troponin HS 38.90 pg/mL Abnormal 10.10-27.10 [facility] Comment on above: Result Comment: Crit [...] Sensitivity Troponin I Instructions For Use, [employer], February 2018) Performed By: #### 1 [id number] #### [facility] [address] [place] [address] UA with Cult Rflxon 02-27-20 24 Bilirubin Ql (U) dupl Invalid Interpretation Code [facility] Comment on above: Performed By: #### 4 [id number] #### [facility] [address] [place] [address] Clarity (U) dupl Invalid Interpretation Code [facility] Comment on above: Performed By: #### 4 [id number] #### [facility] [address] [place] [address] Color (U) dupl Invalid Interpretation Code [facility] Comment on above: Result Comment: dupl icate order/credited 02/27/2024 08:19 CSS Microscopic readings are only performed on those samples that meet specific criteria set forth by [facility]. Performed By: #### 4 [id number] #### [facility] [address] [place] [address] Glucose Ql (U) dupl Invalid Interpretation Code [facility] Comment on above: Performed By: #### 4 [id number] #### [facility] [address] [place] [address] Hemoglobin Auto test strip (U) [Mass/Vol] dupl Invalid Interpretation Code [facility] Comment on above: Performed By: #### 4 [id number] #### [facility] [address] [place] [address] Ketones Auto test strip Ql (U) dupl Invalid Interpretation Code [facility] Comment on above: Performed By: #### 4 [id number] #### [facility] [address] [place] [address] Leukocyte esterase Auto test strip Ql (U) dupl Invalid Interpretation Code [facility] Comment on above: Performed By: #### 4 [id number] #### [facility] [address] [place] [address] Nitrite Auto test strip Ql (U) dupl Invalid Interpretation Code [facility] Comment on above: Performed By: #### 4 [id number] #### [facility] [address] [place] [address] pH (U) dupl Invalid Interpretation Code 5.0-9.0 [facility] Comment on above: Performed By: #### 4 [id number] #### [facility] [address] [place] [address] Protein Ql (U) dupl Invalid Interpretation Code [facility] Comment on above: Performed By: #### 4 [id number] #### [facility] [address] [place] [address] Specific gravity (U) [Rel density] dupl Invalid Interpretation Code 1.005-1.030 [facility] Comment on above: Performed By: #### 4 [id number] #### [facility] [address] [place] [address] Urobilinogen (U) [Mass/Vol] dupl Invalid Interpretation Code [facility] Comment on above: Performed By: #### 4 [id number] #### [facility] [address] [place] [address] Bacteria Auto Ql (U) 1+ /HPF Abnormal Trace [facility] Comment on above: Performed By: #### 4 [id number] #### [facility] [address] [place] [address] Bilirubin Ql (U) Negative Normal Negative [facility] Comment on above: Performed By: #### 4 [id number] #### [facility] [address] [place] [address] Clarity (U) Turbid Abnormal Clear [facility] Comment on above: Performed By: #### 4 [id number] #### [facility] [address] [place] [address] Color (U) [place] Abnormal Yellow [facility] Comment on above: Result Comment: Micr oscopic readings are only performed on those samples that meet specific criteria set forth by [facility]. Performed By: #### 4 [id number] #### [facility] [address] [place] [address] Epithelial cells.squamous Auto (Urine sed) [#/Area] 0-[address] [facility] Comment on above: Performed By: #### 4 [id number] #### [facility] [address] [place] [address] Glucose Ql (U) Negative Normal Negative [facility] Comment on above: Performed By: #### 4 [id number] #### [facility] [address] [place] [address] Hemoglobin Auto test strip (U) [Mass/Vol] 3+ mg/dL Abnormal Negative [facility] Comment on above: Performed By: #### 4 [id number] #### [facility] [address] [place] [address] Ketones Auto test strip Ql (U) Negative Normal Negative [facility] Comment on above: Performed By: #### 4 [id number] #### [facility] [address] [place] [address] Leukocyte clumps Auto (Urine sed) [#/Area] 11-[address] [facility] Comment on above: Performed By: #### 4 [id number] #### [facility] [address] [place] [address] Leukocyte esterase Auto test strip Ql (U) 500 [place]/uL Abnormal Negative [facility] Comment on above: Performed By: #### 4 [id number] #### [facility] [address] [place] [address] Mucus Auto Ql (U) Trace Normal Negative [facility] Comment on above: Performed By: #### 4 [id number] #### [facility] [address] [place] [address] Nitrite Auto test strip Ql (U) 1+ mg/dL Abnormal Negative [facility] Comment on above: Performed By: #### 4 [id number] #### [facility] [address] [place] [address] pH (U) 7.0 [pH] Invalid Interpretation Code 5.0-9.0 [facility] Comment on above: Performed By: #### 4 [id number] #### [facility] [address] [place] [address] Protein Ql (U) 2+ mg/dL Abnormal Negative [facility] Comment on above: Performed By: #### 4 [id number] #### [facility] [address] [place] [address] RBC Ql (U) 31-75 Abnormal 0-3 [facility] Comment on above: Performed By: #### 4 [id number] #### [facility] [address] [place] [address] Specific gravity (U) [Rel density] 1.011 Invalid Interpretation Code 1.005-1.030 [facility] Comment on above: Performed By: #### 4 [id number] #### [facility] [address] [place] [address] Urobilinogen (U) [Mass/Vol] Negative Normal Negative [facility] Comment on above: Performed By: #### 4 [id number] #### [facility] [address] [place] [address] WBC Auto (Urine sed) [#/Area] >75 Abnormal 0-5 [facility] Comment on above: Performed By: #### 4 [id number] #### [facility] [address] [place] [address] URINALYSISOrdered By: SYSTEM SYSTEM on 02-27-2024 Bacteria Auto Ql (U) 1+ /HPF Invalid Interpretation Code Trace/HPF [facility] UA Auto SS Bilirubin Ql (U) Negative Normal Negativemg/dL [facility] UA Auto SS Clarity (U) Turbid *ABN* (02/27/24 3:19 AM) Invalid Interpretation Code Clear [facility] UA Auto SS Color (U) [place] 3 *ABN* (02/27/24 3:19 AM) Invalid Interpretation Code Yellow [facility] UA Auto SS Comment on above: Interpretive Data: M icroscopic readings are only performed on those samples that meet specific criteria set forth by [facility]. Epithelial cells.squamous Auto (Urine sed) [...] Ql (U) Trace graded/LPF Normal Negativegrad ed/LPF [facility] UA Auto SS Nitrite Auto test strip Ql (U) 1+ mg/dL Invalid Interpretation Code Negativemg/dL [facility] UA Auto SS pH (U) 7.0 *NA* (02/27/24 3:19 AM) Invalid Interpretation Code 5.0 - 9.0 [facility] UA Auto SS Protein Ql (U) 2+ mg/dL Invalid Interpretation Code Negativemg/dL [facility] UA Auto SS RBC Ql (U) 31-75 graded/HPF Invalid Interpretation Code 0-3graded/HPF [facility] UA Auto SS Specific gravity (U) [Rel density] 1.011 *NA* (8/16/24 3:19 AM) Invalid Interpretation Code 1.005 - 1.030 [facility] [place] [place] UA Auto SS Urobilinogen (U) [Mass/Vol] Negative Normal Negativemg/dL [facility] [place] [place] UA Auto SS WBC Auto (Urine sed) [#/Area] >75 graded/HPF Invalid Interpretation Code 0-5graded/HPF [facility] UA Auto SS URINALYSISOrdered By: Elisa Love on 02-27-2024 Bilirubin Ql (U) dupl Invalid Interpretation Code [facility] [place] [place] UA Auto SS Clarity (U) dupl Invalid Interpretation Code [facility] [place] [place] UA Auto SS Color (U) dupl Invalid Interpretation Code [facility] [place] [place] UA Auto SS Comment on above: Result Comment: dupl icate order/credited 02/27/2024 08:19 CSS Interpretive Data: M icroscopic readings are only performed on those samples that meet specific criteria set forth by [facility]. Glucose Ql (U) dupl Invalid Interpretation Code [facility] [place] [place] UA Auto SS Hemoglobin Auto test strip (U) [Mass/Vol] dupl Invalid Interpretation Code [facility] [place] [place] UA Auto SS Ketones Auto test strip Ql (U) dupl Invalid Interpretation Code [facility] [place] [place] UA Auto SS Leukocyte esterase Auto test strip Ql (U) dupl Invalid Interpretation Code [facility] [place] [place] UA Auto SS Nitrite Auto test strip Ql (U) dupl Invalid Interpretation Code [facility] [place] [place] UA Auto SS pH (U) dupl Invalid Interpretation Code 5.0 - 9.0 [facility] [place] [place] UA Auto SS Protein Ql (U) dupl Invalid Interpretation Code [facility] UA Auto SS Specific gravity (U) [Rel density] dupl Invalid Interpretation Code 1.005 - 1.030 [facility] [place] [place] UA Auto SS Urobilinogen (U) [Mass/Vol] dupl Invalid Interpretation Code [facility] [place] [place] UA Auto SS URINALYSISOrdered By: Rudy Gupta on 02-27-2024 UA Spec Desc Clean Catch (02/27/24 3:19 AM) Normal [facility] [place] [place] UA Auto SS Work Phone: URINALYSISOrdered By: Marifer CHANCE on 02-27-2024 UA Spec Desc Random Urine (02/27/24 3:19 AM) Normal [facility] [place] [place] UA Auto SS Work Phone: XR Chest [...] acute osseous findings. Degenerative changes. Ordering Provider: Rudy Gupta FINAL REPORT Dictated: 02/27/2024 10:28 am Jagjit Garcia MD Signed (Electronic Signature): 02/27/2024 10:28 am Signed by: Jagjit Garcia MD Transcribed by: NIKKI Technologist: MANISH Technical Comments Radiation Dose: Ka,r in mGy = . DAP = . Normal [facility] eGFRon 02-27-2024 eGFR 33 mL/min/1.73 m2 Low >=59 [facility] Comment on above: Order Comment: Order added by Discern Expert. Performed By: #### 1 [id number] #### [facility] [address] [place] [address] BB Draw & Holdon 02-26-2024 BB D&H Sample drawn for Blood Ba Normal [facility] Comment on above: Performed By: #### 1 [id number] #### [facility] [address] [place] [address] [facility] Anion gap [Moles/Vol] 11 mmol/L Normal - [facility] Comment on above: Performed By: #### 2 [id number] #### [facility] [address] [place] [address] Calcium [Mass/Vol] 8.7 mg/dL Low 8.9-11.1 [facility] Comment on above: Performed By: #### 2 [id number] #### [facility] [address] [place] [address] Chloride [Moles/Vol] 100 mmol/L Low 101-111 [facility] Comment on above: Performed By: #### 2 [id number] #### [facility] [address] [place] [address] CO2 [Moles/Vol] 26 mmol/L Normal 21-31 [facility] Comment on above: Performed By: #### 2 [id number] #### [facility] [address] [place] [address] Creatinine [Mass/Vol] 1.8 mg/dL High 0.5-1.3 [facility] Comment on above: Performed By: #### 2 [id number] #### [facility] [address] [place] [address] Glucose [Mass/Vol] 97 mg/dL Normal 55-199 [facility] Comment on above: Performed By: #### 2 [id number] #### [facility] [address] [place] [address] Potassium [Moles/Vol] 4.4 mmol/L Normal 3.5-5.3 [facility] Comment on above: Performed By: #### 2 [id number] #### [facility] [address] [place] [address] Sodium [Moles/Vol] 133 mmol/L Low 135-145 [facility] Comment on above: Performed By: #### 2 [id number] #### [facility] [address] [place] [address] Urea nitrogen [Mass/Vol] 39 mg/dL High 5-21 [facility] Comment on above: Performed By: #### 2 [id number] #### [facility] [address] [place] [address] Urea nitrogen/Creatinine [Mass ratio] 22 No Units High 10-20 [facility] Comment on above: Performed By: #### 2 [id number] #### [facility] [address] [place] [address] CBC w/ Auto Diffon 4 Basophils/100 WBC (Bld) 1.0 % Normal 0.0-2.0 [facility] Comment on above: Performed By: #### 2 [id number] #### [facility] [address] [place] [address] Basophils/Leukocyte s Auto (Bld) [Pure # fraction] 0.1 E9/L Normal 0.0-0.2 [facility] Comment on above: Performed By: #### 2 [id number] #### [facility] [address] [place] [address] Eosinophils (Bld) [#/Vol] 0.1 E9/L Normal 0.0-0.5 [facility] Comment on above: Performed By: #### 2 [id number] #### [facility] [address] [place] [address] Eosinophils/100 WBC (Bld) 0.5 % Normal 0.0-8.0 [facility] Comment on above: Performed By: #### 2 [id number] #### [facility] [address] [place] [address] Erythrocyte distribution width (RBC) [Ratio] 15.8 % High 10.9-14.2 [facility] Comment on above: Performed By: #### 2 [id number] #### [facility] [address] [place] [address] Hematocrit (Bld) [Volume fraction] 34.4 % Normal 34.0-46.0 [facility] Comment on above: Performed By: #### 2 [id number] #### [facility] [address] [place] [address] Hemoglobin (Bld) [Mass/Vol] 10.8 g/dL Low 12.0-16.0 [facility] Comment on above: Performed By: #### 2 [id number] #### [facility] [address] [place] [address] Lymphocytes (Bld) [#/Vol] 1.1 E9/L Normal 1.0-4.0 [facility] Comment on above: Performed By: #### 2 [id number] #### [facility] [address] [place] [address] Lymphocytes/100 WBC (Bld) 8.4 % Low 14.0-50.0 [facility] Comment on above: Performed By: #### 2 [id number] #### [facility] [address] [place] [address] MCH (RBC) [Entitic mass] 31.4 pg Normal 27.0-34.0 [facility] Comment on above: Performed By: #### 2 [id number] #### [facility] [address] [place] [address] MCHC (RBC) [Mass/Vol] 31.5 g/dL Normal 31.4-36.0 [facility] Comment on above: Performed By: #### 2 [id number] #### [facility] [address] [place] [address] MCV (RBC) [Entitic vol] 99.8 fL Normal 80.0-100.0 [facility] Comment on above: Performed By: #### 2 [id number] #### [facility] [address] [place] [address] Monocytes (Bld) [#/Vol] 1.0 E9/L Normal 0.2-1.0 [facility] Comment on above: Performed By: #### 2 [id number] #### [facility] [address] [place] [address] Neutrophils (Bld) [#/Vol] 10.5 E9/L High 2.0-7.5 [facility] Comment on above: Performed By: #### 2 [id number] #### [facility] [address] [place] [address] Neutrophils/100 WBC (Bld) 82.2 % High 36.0-75.0 [facility] Comment on above: Performed By: #### 2 [id number] #### [facility] [address] [place] [address] Platelet mean volume (Bld) [Entitic vol] 8.8 fL Normal 6.4-10.8 [facility] Comment on above: Performed By: #### 2 [id number] #### [facility] [address] [place] [address] Platelets (Bld) [#/Vol] 211.0 E9/L Normal 150.0-500.0 [facility] Comment on above: Performed By: #### 2 [id number] #### [facility] [address] [place] [address] RBC (Bld) [#/Vol] 3.4 E12/L Low 4.3-5.9 [facility] Comment on above: Performed By: #### 2 [id number] #### [facility] [address] [place] [address] WBC corrected for nucl RBC Auto (Bld) [#/Vol] 12.8 E9/L High 4.0-11.0 [facility] Comment on above: Performed By: #### 2 [id number] #### [facility] [address] [place] [address] CHEMISTRYOrdered By: SYSTEM SYSTEM on 02-26-2024 Troponin HS 59.70 pg/mL Invalid Interpretation Code 10.10 - 27.10 pg/mL [facility] Comment on above: Result Comment: Crit ical Result Verified by Previous Result Critical Result I_TnIHS:59.7 Called to and read back by: AMANDA PRESLEY at: 02/26/2024 21:24:01 by:[id number] Interpretive Data: T he 95% CI (Confidence Interval) PPV (Positive Predictive Value) for myocardial infarction in females is 38 pg/mL, in males 51 pg/mL. The results should be used in conjunction with clinical conditions of myocardial infarction. (Access High Sensitivity Troponin I Instructions For Use, [employer], February 2018) Lactic Acid Lvl 0.6 mmol/L [...] High Sensitivity Troponin I Instructions For Use, [employer], February 2018) Anion gap [Moles/Vol] 11 mmol/L [...] 30.9 s Normal 25.1 - 36.5 second(s) [facility] [place] [place] Auto Coag Comment on above: Interpretive Data: [...] the same coagulation reagent and instrumentation as [facility] [place] [place]. Currently there are no coagulation studies available worldwide for children to 14 days, and no normal ranges. Heparin therapeutic range (represented by Anti-Factor Xa activity of 0.2 - 0.4 U/mL) corresponds to PTT of 56.6 - 109.0 sec. INR Coag (PPP) [Relative time] 1.07 {INR} Invalid Interpretation Code [facility] [place] [place] Auto Coag Comment on above: Interpretive Data: I NR results are specifically intended to assess patients stabilized on long-term Anticoagulation therapy suggested INR s Less Intensive Anticoagulation 2.0 3.0 Conventional Range 3.0 4.5 PT Coag (PPP) [Time] 12.0 s Normal 9.4 - 12.5 second(s) [facility] [place] [place] Auto Coag Comment on above: Interpretive Data: [...] the same coagulation reagent and instrumentation as [facility] [place] [place]. Currently there are no coagulation studies available worldwide for children to 14 days, and no normal ranges. Capillary Glucose POCon 02-11 Glucose [Mass/Vol] 64 mg/dL Normal 55-99 [facility] Comment on above: Result Comment: Tomas saleem RN/ Performed By: #### 2 [id number] #### [facility] [address] [place] [address] ED Clinical Summaryon 2023 ED Clinical Summary ED Clinical Summary [address] [address] ED Clinical Summary Person Information Name: LEXI TATUM Kiana/[facility] Age: 78 Years : 1945 Sex: Female Language: Sierra Leonean PCP: STEFAN BEST MD Marital Status: Visit Id: Visit Reason: Chest pain; ALOC Speciality: Acuity: 1 Enc Type: Observation Med Service: Emergency Arrival: 02/26/2024 17:28:58 Discharge: LOS: 000 02:17 Checkin: 02/26/2024 17:28:58 Checkout: 02/26/2024 19:45:18 Dispo Type: Admitted as IP to this [facility] EVENTS: Event Name Event Status Request Date/Time [...] 18:57:34 Patient Care Request 02/26/2024 18:57:34 ADDRESS: [address] [place] [id number] [facility] DOC NOTES: MEDICAL INFORMATION: Prescriptions Given: PATIENT EDUCATION INFORMATION: Instructions: Follow up: DIAGNOSIS: 1:Sepsis; 2:Urinary tract infection; 3:Acute kidney injury; 4:Generalized weakness; 5:Diabetes; 6:Pure hypercholesterolemi a; 7:Class 3 severe obesity with serious comorbidity in adult; 8:Coronary artery disease; 9:On deep vein thrombosis (DVT) prophylaxis Normal [facility] ED Patient Education Noteon 02-26-2024 ED Patient Education Note ED Patient Education Note Normal [facility] ED Patient Summaryon ED Patient Summary ED Patient Summary [address] [address] Patient Discharge Instructions Person Information Name: LEXI TATUM Age: 78 Years Arrival Date: 02/26/2024 17:28:58 Discharge Diagnosis: 1:Sepsis; 2:Urinary tract infection; 3:Acute kidney injury; 4:Generalized weakness; 5:Diabetes; 6:Pure hypercholesterolemi a; 7:Class 3 severe obesity with serious comorbidity in adult; 8:Coronary artery disease; 9:On deep vein thrombosis (DVT) prophylaxis Primary Care Physician: STEFAN BEST MD Provider Information Primary Provider: Advanced Log Buncher:Rudy Gupta PA-C The exam and treatment you received in the Emergency Department were for an urgent problem and are not intended as complete care. It is important that you follow up with a doctor, nurse practitioner, or physician?s minister assistant for ongoing care. If your symptoms [...] opioids can be used to help relieve otjrcguh-oy-efpwyr pain and are often prescribed following a [...] be struggling with addiction, tell your health team primary care physician and ask fo (more content not included)... Normal [facility] HEMATOLOGYOrdered By: SYSTEM SYSTEM on 02-26-2024 [...] Lactic Acid Lvl 0.6 mmol/L Normal 0.5-2.2 [facility] Comment on above: Performed By: #### 2 [id number] #### [facility] [address] [place] [address] No Panel InformationOrdered By: [facility] on 02-26-2024 Blood Culture Charcoal No growth at 3 days. Final to follow at 7 days. [facility] PT & PTTon 02-26-2024 aPTT Coag (PPP) [Time] 30.9 second(s) Normal 25.1-36.5 [facility] Comment on above: Result Comment: Para meter 15 days - 4 weeks 1 - 5 months 6 - 11 months 1 - 5 years 6 - 10 years 11 - 17 years PTT Mean: 35.4 (27.6-45.6) Mean: 33.5 (24.8-40.7) Mean: 32.4 (25.1-40.7) Mean: 31.6 (24.0-39.2) Mean: 31.6 (26.9-38.7) Mean: 31.0 (24.6-38.4) Pediatric Reference ranges were obtained from a study by willie Stephenson al. prepared from 1437 samples obtained at 7 different centers using the same coagulation reagent and instrumentation as [facility] [place] [place]. Currently there are no coagulation studies available worldwide for children to 14 days, and no normal ranges. Heparin therapeutic range (represented by Anti-Factor Xa activity of 0.2 - 0.4 U/mL) corresponds to PTT of 56.6 - 109.0 sec. Performed By: #### 1 [id number] #### [facility] [address] [place] [address] INR Coag (PPP) [Relative time] 1.07 {INR} Invalid Interpretation Code [facility] Comment on above: Result Comment: INR results are specifically intended to assess patients stabilized on long-term Anticoagulation therapy suggested INR?s ?Less Intensive Anticoagulation? 2.0 ? 3.0 Conventional Range 3.0 ? 4.5 Performed By: #### 1 [id number] #### [facility] [address] [place] [address] PT Coag (PPP) [Time] 12.0 second(s) Normal 9.4-12.5 [facility] Comment on above: Result Comment: 15 d ays - 4 weeks 1 - 5 months 6 -11 months 1- 5 years 6-10 years 11 -17 years Mean: 11.2 (9.5-12.6) Mean: 11.0 (9.7-12.8) Mean: 11.0 (9.8-13.0) Mean: 11.3 (9.9-13.4) Mean: 11.7 (10.0-14.6) Mean: 11.8 (10.0 - 14.1) Pediatric Reference ranges were obtained from a study by willie Stephenson al. prepared from 1437 samples obtained at 7 different centers using the same coagulation reagent and instrumentation as [facility] [place] [place]. Currently there are no coagulation studies available worldwide for children to 14 days, and no normal ranges. Performed By: #### 1 [id number] #### [facility] [address] [place] [address] Troponin 0 Hr.on 02-26-2024 Troponin HS 74.90 pg/mL Abnormal 10.10-27.10 [facility] Comment on above: Result Comment: Crit ical Result Verified by Repeat Analysis Critical Result I_TnIHS:74.9 Called to and read back by: RUDY PATRICK RN at: 02/26/2024 18:18:39 by:[facility] The 95% CI (Confidence Interval) PPV (Positive Predictive Value) for myocardial infarction in females is 38 pg/mL, in males 51 pg/mL. The results should be used in conjunction with clinical conditions of myocardial infarction. (Access High Sensitivity Troponin I Instructions For Use, [employer], February 2018) Performed By: #### 1 [id number] #### [facility] [address] [place] [address] Troponin 1 Hr.on 02-26-2024 Troponin HS 70.30 pg/mL Abnormal 10.10-27.10 [facility] Comment on above: Order Comment: 1830 Result Comment: Crit ical Result Verified by Previous Result The 95% CI (Confidence Interval) PPV (Positive Predictive Value) for myocardial infarction in females is 38 pg/mL, in males 51 pg/mL. The results should be used in conjunction with clinical conditions of myocardial infarction. (Access High Sensitivity Troponin I Instructions For Use, [employer], February 2018) Performed By: #### 1 [id number] #### [facility] [address] [place] [address] Troponin 3 Hr.on 02-26-2024 Troponin HS 59.70 pg/mL Abnormal 10.10-27.10 [facility] Comment on above: Result Comment: Crit ical Result Verified by Previous Result Critical Result I_TnIHS:59.7 Called to and read back by: AMANDA PRESLEY at: 02/26/2024 21:24:01 by:[email or web address] The 95% CI (Confidence Interval) PPV (Positive Predictive Value) for myocardial infarction in females is 38 pg/mL, in males 51 pg/mL. The results should be used in conjunction with clinical conditions of myocardial infarction. (Access High Sensitivity Troponin I Instructions For Use, [employer], February 2018) Performed By: #### 1 [id number] #### [facility] [address] [place] [address] UA with Cult Rflxon 02-26-20 24 Type of Urine collection method Random Urine Normal [facility] Comment on above: Performed By: #### 4 [id number] #### [facility] [address] [place] [address] Type of Urine collection method Clean Catch Normal [facility] Comment on above: Performed By: #### 4 [id number] #### [facility] [address] [place] [address] eGFRon 02-26-2024 eGFR 28 mL/min/1.73 m2 Low >=59 [facility] Comment on above: Order Comment: Order added by Discern Expert. Performed By: #### 1 [id number] #### [facility] [address] [place] [address] Ambulatory Visit Summaryon 0 02-10-2024 Ambulatory Visit Summary Ambulatory Visit Summary LEXI TATUM Nestor :1945 Visit Date:02/10/2024 Ambulatory Visit Instructions Your Diagnosis Retroperitoneal fibrosis Hydronephrosis Chronic kidney disease, stage 3 unspecified Your Care Team Attending Physician - DELGADO MARLOW, Yaniv Vela Primary Care Physician - Maxine Sanchez This [...] Schedule the Following Appointments Follow Up with DELGADO MARLOW, PATO Nye When: Where: [address] [place] [id number]- Medications What How Much When Why Instructions [...] Urinary in (more content not included)... Normal [facility] Urology Office/Clinic Noteon 02-10-2024 Urology Office/Clinic Note Urology Office/Clinic Note Chief Complaint follow up HPI Staff Lexi is a 78 y.o. female here [place] [facility] [place] stent placement 01/22/24. S/P [...] here for f/u [place] [facility] [place]. 1. 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 AP wo con 01/22/24 [facility] [place] Bilateral hydronephrosis and hydroureter to level [...] options including referral to the [facility] [place] [facility] department for consideration of ureterolysis. 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 GFR was around 28 at last [facility] (more content not included)... Normal [facility] Comment on above: Result Comment: Elec tronically Signed By: DELGADO MARLOW, Yaniv Mcarthur.mane\Date and Time Signed: 02/10/24 16:40 EDT Basophils Auto (Bld) [#/Vol] Ordered By: Norberto Pires on 01-25-2024 Basophils (Bld) [#/Vol] 0.0 10*3/uL 0.0-0.2 [facility] Basophils/100 WBC Auto (Bld) Ordered By: Norberto Pires on 01-25-2024 Basophils/100 WBC (Bld) 0.5 % . [facility] Calcium [Mass/volume] in Ser um or PlasmaOrdered By: Norberto Pires on 01-25-2024 Calcium [Mass/Vol] 8.6 mg/dL 8.6-10.[address] [facility] Carbon dioxide, total [Moles /volume] in Serum or PlasmaOrdered By: Norberto Pires on 01-25-2024 CO2 [Moles/Vol] 27.5 mmol/L 21.0-31.0 [facility] Chloride [Moles/volume] in [place] or PlasmaOrdered By: Norberto Pires on 01-25-2024 Chloride [Moles/Vol] 106 mmol/L 98-107 [facility] Creatinine [Mass/volume] in Serum or PlasmaOrdered By: Norberto Pires on 01-25-2024 Creatinine [Mass/Vol] 1.80 mg/dL High 0.60-1.20 [facility] Eosinophils Auto (Bld) [#/Vo l]Ordered By: Norberto Pires on 01-25-2024 Eosinophils (Bld) [#/Vol] 0.3 10*3/uL 0.0-0.45 [facility] Eosinophils/100 WBC Auto (Bl d)Ordered By: Norberto Pires on 01-25-2024 Eosinophils/100 WBC (Bld) 3.2 % . [facility] Erythrocyte distribution wid th Auto (RBC) [Ratio]Ordered By: Norberto Pires on 01-25-2024 Erythrocyte distribution width (RBC) [Ratio] 17.3 % High 11.9-15.3 [facility] Glucose Glucometer (BldC) [M ass/Vol]Ordered By: Norberto Pires on 01-25-2024 Glucose [Mass/Vol] 149 mg/dL [facility] Comment on above: Random Glucose Refer ence Range is dependent on time and content of last meal. Glucose of more than 200 mg/dL in a nonstressed, ambulatory subject supports the diagnosis of Diabetes Mellitus. Glucose [Mass/volume] in Ser um or PlasmaOrdered By: Norberto Pires on 01-25-2024 Glucose [Mass/Vol] 75 mg/dL 70-[address] [facility] Comment on above: ADA recommended refe rence rangeRandom Glucose Reference Range is dependent on time and content of last meal. Glucose of more than 200 mg/dL in a nonstressed, ambulatory subject supports the diagnosis of Diabetes Mellitus. Hematocrit Auto (Bld) [Volum e fraction]Ordered By: Norberto Pires on 01-25-2024 Hematocrit (Bld) [Volume fraction] 30.5 % Low 34.0-46.4 [facility] Hemoglobin [Mass/volume] in BloodOrdered By: Norberto Pires on 01-25-2024 Hemoglobin (Bld) [Mass/Vol] 9.8 g/dL Low 11.8-15.4 [facility] Leukocytes [#/volume] correc suzi for nucleated erythrocytes in Blood by Automated counOrdered By: Norberto Pires on 01-25-2024 WBC corrected for nucl RBC Auto (Bld) [#/Vol] 8.3 10*3/uL 3.8-11.6 [facility] Lymphocytes Auto (Bld) [#/Vo l]Ordered By: Norberto Pires on 01-25-2024 Lymphocytes (Bld) [#/Vol] 1.9 10*3/uL 1.00-4.8 [facility] Lymphocytes/100 WBC Auto (Bl d)Ordered By: Norberto Pires on 01-25-2024 Lymphocytes/100 WBC (Bld) 22.6 % . [facility] MCH Auto (RBC) [Entitic mass ]Ordered By: Norberto Pires on 01-25-2024 MCH (RBC) [Entitic mass] 32.7 pg 24.7-34.3 [facility] MCHC Auto (RBC) [Mass/Vol]Or dered By: Norberto Pires on 01-25-2024 MCHC (RBC) [Mass/Vol] 32.1 g/dL 32.0-35.0 [facility] MCV Auto (RBC) [Entitic vol] Ordered By: Norberto Pires on 01-25-2024 MCV (RBC) [Entitic vol] 101.8 fL High 80-100 [facility] Monocytes Auto (Bld) [#/Vol] Ordered By: Norberto Pires on 01-25-2024 Monocytes (Bld) [#/Vol] 0.8 10*3/uL 0.0-0.8 [facility] Monocytes/100 WBC Auto (Bld) Ordered By: Norberto Pires on 01-25-2024 Monocytes/100 WBC (Bld) 9.1 % . [facility] Neutrophils Auto (Bld) [#/Vo l]Ordered By: Norberto Pires on 01-25-2024 Neutrophils (Bld) [#/Vol] 5.4 10*3/uL 1.8-7.7 [facility] Neutrophils/100 WBC Auto (Bl d)Ordered By: Norberto Pires on 01-25-2024 Neutrophils/100 WBC (Bld) 64.6 % . [facility] No Panel InformationOrdered By: Norberto Pires on 01-25-2024 Estimated GFR (CKD-EPI) 28.482 mL/Min [facility] Creatinine Clearance (Chem 24.11 [facility] Nucleated erythrocytes [Pres ence] in Blood by Automated countOrdered By: Norberto Pires on 01-25-2024 Nucleated RBC Auto Ql (Bld) 0.1 /100{WBC} 0-0.5 [facility] Platelet mean volume Auto (B ld) [Entitic vol]Ordered By: Norberto Pires on 01-25-2024 Platelet mean volume (Bld) [Entitic vol] 9.1 fL 6.3-10.7 [facility] Platelets Auto (Bld) [#/Vol] Ordered By: Norberto Pires on 01-25-2024 Platelets (Bld) [#/Vol] 202 10*3/uL 150-450 [facility] Potassium [Moles/volume] in Serum or PlasmaOrdered By: Norberto Pires on 01-25-2024 Potassium [Moles/Vol] 3.6 mmol/L 3.5-5.1 [facility] RBC Auto (Bld) [#/Vol]Ordere d By: Norberto Pires on 01-25-2024 RBC (Bld) [#/Vol] 3.00 10*6/uL Low 3.60-5.00 [facility] Serum or plasma anion gap de terminationOrdered By: Norberto Pires on 01-25-2024 Anion gap [Moles/Vol] 10.1 mmol/L 6.0-15.0 [facility] Sodium [Moles/volume] in Ser um or PlasmaOrdered By: Norberto Pires on 01-25-2024 Sodium [Moles/Vol] 140 mmol/L 136-[address] [facility] Urea nitrogen [Mass/volume] in Serum or PlasmaOrdered By: Norberto Pires on 01-25-2024 Urea nitrogen [Mass/Vol] 25 mg/dL 7-25 [facility] WBC Auto (Bld) [#/Vol]Ordere d By: Norberto Pires on 01-25-2024 WBC (Bld) [#/Vol] 8.3 10*3/uL 3.8-11.[address] [facility] Alanine aminotransferase [En zymatic activity/volume] in Serum or PlasmaOrdered By: Norberto Pires on 01-24-2024 ALT [Catalytic activity/Vol] 3 U/L Low 7-52 [facility] Albumin [Mass/volume] in Ser um or Plasma by Bromocresol green (BCG) dye binding methoOrdered By: Norberto Pires on 01-24-2024 Albumin BCG dye [Mass/Vol] 3.2 g/dL Low 3.5-5.7 [facility] Alkaline phosphatase [Enzyma tic activity/volume] in Serum or PlasmaOrdered By: Norberto Pires on 01-24-2024 ALP [Catalytic activity/Vol] 49 U/L 34-104 [facility] Aspartate aminotransferase [ Enzymatic activity/volume] in Serum or PlasmaOrdered By: Norberto Pires on 01-24-2024 AST [Catalytic activity/Vol] 10 U/L Low 13-39 [facility] Bilirubin.total [Mass/volume ] in Serum or PlasmaOrdered By: Norberto iPres on 01-24-2024 Bilirubin [Mass/Vol] 0.2 mg/dL Low 0.3-1.0 [facility] Globulin Calc (S) [Mass/Vol] Ordered By: Norberto Pires on 01-24-2024 Globulin (S) [Mass/Vol] 3.0 g/dL [facility] No Panel InformationOrdered By: Norberto Pires on 01-24-2024 Bedside Glucose Comment Glu2: cleaned meter [facility] Protein [Mass/volume] in Ser um or PlasmaOrdered By: Norberto Pires on 01-24-2024 Protein [Mass/Vol] 6.2 g/dL Low 6.4-8.[address] [facility] Serum or plasma albumin/glob ulin mass ratioOrdered By: Norberto Pires on 01-24-2024 Albumin/Globulin [Mass ratio] 1.1 {ratio} [facility] Activated partial thrombopla stin time (aPTT) in platelet poor plasma by coagulation aOrdered By: Norberto Pires on 01-23-2024 aPTT Coag (PPP) [Time] 30.7 s 25.1-36.5 [facility] Comment on above: A hematocrit value g reater than 55% may lead to inaccurate results in coagulation testing. Patients having hematocrit values >55% require a special collection tube for coagulation studies. Please contact the laboratory at [phone] for redraw instructions. Creatine kinase [Enzymatic a ctivity/volume] in Serum or PlasmaOrdered By: Norberto Pires on 01-23-2024 CK [Catalytic activity/Vol] 30 U/L 30-223 [facility] Creatine kinase.MB [Mass/vol ume] in Serum or PlasmaOrdered By: Norberto Pires on 01-23-2024 CK.MB [Mass/Vol] 2.3 ng/mL 0.6-6.3 [facility] INR in Platelet poor plasma by Coagulation assayOrdered By: Norberto Pires on 01-23-2024 INR Coag (PPP) [Relative time] 0.9 {INR} [facility] Comment on above: INR Therapeutic Rang e [...] PT Coag (PPP) [Time] 11.0 s 9.0-12.9 [facility] Comment on above: A hematocrit value g reater than 55% may lead to inaccurate results in coagulation testing. Patients having hematocrit values >55% require a special collection tube for coagulation studies. Please contact the laboratory at [phone] for redraw instructions. Serum or plasma creatine kin ase MB (CKMB)/total creatine kinase (CK) ratio by calculaOrdered By: Norberto Pires on 01-23-2024 CK.MB Calc [Catalytic fraction] 7.6 % High 0.00-2.50 [facility] Troponin I.cardiac [Mass/vol ume] in Serum or Plasma by Detection limit <= 0.01 ng/Ordered By: Norberto Pires on 01-23-2024 Troponin I.cardiac DL <= 0.01 ng/mL [Mass/Vol] 20.7 pg/mL High 0.0-15.0 [facility] Bacteria [Presence] in Urine by AutomatedOrdered By: Christen Oshae on 01-22-2024 Bacteria Auto Ql (U) Rare [HPF] None Seen [facility] Bilirubin Test strip Ql (U)O rdered By: Christen Oshea on 01-22-2024 Bilirubin Ql (U) Negative Negative [facility] Color Auto (U)Ordered By: Saira Oshea on 01-22-2024 Color (U) Colorless Yellow [facility] Epithelial cells.squamous [# /area] in Urine sediment by Automated countOrdered By: Christen Oshea on 01-22-2024 Epithelial cells.squamous Auto (Urine sed) [#/Area] 1-2 [HPF] 0-2 [facility] Erythrocytes [#/area] in Uri ne sediment by Automated countOrdered By: Christen Oshea on 01-22-2024 RBC Auto (Urine sed) [#/Area] 1-2 [HPF] 0-4 [facility] Glucose [Mass/volume] in Uri ne by Test stripOrdered By: Christen Oshea on 01-22-2024 Glucose Test strip (U) [Mass/Vol] Normal mg/dL Normal [facility] Hemoglobin Test strip Ql (U) Ordered By: Christen Oshea on 01-22-2024 Hemoglobin Ql (U) Negative Negative [facility] Hyaline casts [#/area] in Ur ine sediment by Automated countOrdered By: Christen Oshea on 01-22-2024 Hyaline casts Auto (Urine sed) [#/Area] 0-8 [LPF] 0-8 [facility] Ketones Test strip Ql (U)Ord ered By: Christen Oshea on 01-22-2024 Ketones Ql (U) Negative Negative [facility] Leukocyte clumps [Presence] in Urine by AutomatedOrdered By: Christen Oshea on 01-22-2024 Leukocyte clumps Auto Ql (U) Occasional [LPF] High None Seen [facility] Leukocyte esterase [Presence ] in Urine by Test stripOrdered By: Christen Oshea on 01-22-2024 Leukocyte esterase Test strip Ql (U) 1+ High Negative [facility] Leukocytes [#/area] in Urine sediment by Automated countOrdered By: Christen Oshea on 01-22-2024 WBC Auto (Urine sed) [#/Area] 5-9 [HPF] High 0-4 [facility] Monocyte distribution width [Entitic volume] in Blood by AutomatedOrdered By: Christen Oshea on 01-22-2024 Monocyte distribution width Auto (Bld) [Entitic vol] 19.69 % 0.00-20.00 [facility] Nitrite Test strip Ql (U)Ord ered By: Christen Oshea on 01-22-2024 Nitrite Ql (U) Negative Negative [facility] Protein Test strip (U) [Mass /Vol]Ordered By: Christen Oshea on 01-22-2024 Protein (U) [Mass/Vol] 50 mg/dL High Negative [facility] Specific gravity Test strip (U) [Rel density]Ordered By: Christen Oshea on 01-22-2024 Specific gravity (U) [Rel density] 1.010 1.001-1.030 [facility] Urine appearanceOrdered By: Christen Oshea on 01-22-2024 Appearance (U) Cloudy Abnormal Clear [facility] Urine culture routineOrdered By: Christen Oshea on 01-22-2024 Bacteria identified Cx Nom (U) [facility] Urobilinogen Test strip (U) [Mass/Vol]Ordered By: Christen Oshea on 01-22-2024 Urobilinogen (U) [Mass/Vol] Normal mg/dL Normal [facility] pH Test strip (U)Ordered By: Christen Oshea on 01-22-2024 pH (U) 7.0 [pH] 5.0-9.0 [facility] Health Recordson 2023 Home Health Records [id number] 5#1.00TIFF Normal [facility] Home Health Records [id number] F2#1.00TIFF Normal [facility] Basophils Auto (Bld) [#/Vol] on 12-06-2023 Basophils (Bld) [#/Vol] 0.0 10 3/uL 0.0-0.1 [facility] Basophils/100 WBC Auto (Bld) on 12-06-2023 Basophils/100 WBC (Bld) 0.3 % 0.2-2.0 [facility] Eosinophils/100 WBC Auto (Bl d)on 12-06-2023 Eosinophils/100 WBC (Bld) 2.9 % 0.9-7.0 [facility] Erythrocyte distribution wid th Auto (RBC) [Ratio]on 12-06-2023 Erythrocyte distribution width (RBC) [Ratio] 16.4 % High 11.0-15.0 [facility] Estimated glomerular filtrat ion rate (GFR) non- Americanon 12-06-2023 GFR/1.73 sq M.predicted among non-blacks MDRD (S/P/Bld) [Vol rate/Area] 20 mL/min/{1.73_m2} Low >=60 [facility] Globulin Calc (S) [Mass/Vol] on 12-06-2023 Globulin (S) [Mass/Vol] 4.3 g/dL [facility] Hematocrit Auto (Bld) [Volum e fraction]on 12-06-2023 Hematocrit (Bld) [Volume fraction] 31.8 % Low 36.0-48.0 [facility] Hemoglobin [Mass/volume] in Bloodon 12-06-2023 Hemoglobin (Bld) [Mass/Vol] 9.5 g/dL Low 12.0-16.0 [facility] Laboratory - Chemistry and C hemistry - challengeon 12-06-2023 Albumin [Mass/Vol] 2.8 g/dL Low 3.4-5.[address] [facility] ALP [Catalytic activity/Vol] 55 U/L 46-116 [facility] ALT [Catalytic activity/Vol] 11 U/L Low 14-59 [facility] AST [Catalytic activity/Vol] 8 U/L Low 15-37 [facility] Bilirubin [Mass/Vol] 0.4 mg/dL 0.2-1.0 [facility] Calcium [Mass/Vol] 9.0 mg/dL 8.5-10.[address] [facility] Chloride [Moles/Vol] 100 mmol/L 98-107 [facility] CO2 [Moles/Vol] 29.7 mmol/L 21.0-32.0 [facility] Cobalamin (Vitamin B12) [Mass/Vol] 380 pg/mL 232-1245 [facility] Comment on above: Performed at: - [address] [id number] Director: Mohan Talbert PhD, Phone: [phone] Creatinine [Mass/Vol] 2.33 mg/dL High 0.55-1.02 [facility] Ferritin [Mass/Vol] 76.0 ng/mL 8.0-252.0 [facility] GFR/1.73 sq M.predicted MDRD (S/P/Bld) [Vol rate/Area] 24 mL/min/{1.73_m2} Low >=60 [facility] Glucose [Mass/Vol] 111 mg/dL High 74-[address] [facility] LDH [Catalytic activity/Vol] 149 U/L 81-234 [facility] Potassium [Moles/Vol] 4.4 mmol/L 3.5-5.1 [facility] Protein [Mass/Vol] 7.1 g/dL 6.4-8.[address] [facility] Sodium [Moles/Vol] 137 mmol/L 136-[address] [facility] Urea nitrogen [Mass/Vol] 45.0 mg/dL High 7.0-18.0 [facility] Urea nitrogen/Creatinine [Mass ratio] 19.3 mg/mg [facility] Laboratory - Hematology and Cell countson 12-06-2023 Immature granulocytes/100 WBC (Bld) 0.3 % 0.0-0.5 [facility] Leukocytes [#/volume] correc suzi for nucleated erythrocytes in Blood by Automated counon 12-06-2023 WBC corrected for nucl RBC Auto (Bld) [#/Vol] 12.3 10 3/uL High 4.0-11.0 [facility] Lymphocytes Auto (Bld) [#/Vo l]on 12-06-2023 Lymphocytes (Bld) [#/Vol] 1.7 10 3/uL 1.2-3.8 [facility] Lymphocytes/100 WBC Auto (Bl d)on 12-06-2023 Lymphocytes/100 WBC (Bld) 13.7 % Low 20.5-60.0 [facility] MCH Auto (RBC) [Entitic mass ]on 12-06-2023 MCH (RBC) [Entitic mass] 31.0 pg 26.7-34.0 [facility] MCHC Auto (RBC) [Mass/Vol]on 12-06-2023 MCHC (RBC) [Mass/Vol] 29.9 g/dL 29.9-35.2 [facility] MCV Auto (RBC) [Entitic vol] on 12-06-2023 MCV (RBC) [Entitic vol] 103.9 fL High 81.0-99.0 [facility] Monocytes Auto (Bld) [#/Vol] on 12-06-2023 Monocytes (Bld) [#/Vol] 0.8 10 3/uL 0.3-0.8 [facility] Monocytes/100 WBC Auto (Bld) on 12-06-2023 Monocytes/100 WBC (Bld) 6.2 % 1.7-12.0 [facility] Neutrophils Auto (Bld) [#/Vo l]on 12-06-2023 Neutrophils (Bld) [#/Vol] 9.4 10 3/uL High 1.4-6.5 [facility] Neutrophils/100 WBC Auto (Bl d)on 12-06-2023 Neutrophils/100 WBC (Bld) 76.6 % High 43.0-75.0 [facility] No Panel Informationon 12-05 Eosinophils # (Auto) 0.4 10 3/uL 0.0-0.7 [facility] Folate 8.2 ng/mL >3.0 [facility] Comment on above: A serum folate oniel ntration of less than 3.1 ng/mL isconsidered to represent clinical deficiency.Performed at: - [facility] [id number] Director: Mohan Talbert PhD, Phone: [phone] Immature Granulocyte # (Auto) 0.04 10 3/uL High 0.00-0.03 [facility] Platelet mean volume Auto (B ld) [Entitic vol]on 12-06-2023 Platelet mean volume (Bld) [Entitic vol] 11.5 fL 9.5-13.5 [facility] Platelets Auto (Bld) [#/Vol] on 12-06-2023 Platelets (Bld) [#/Vol] 209 10 3/uL 150-450 [facility] RBC Auto (Bld) [#/Vol]on RBC (Bld) [#/Vol] 3.06 10 6/uL Low 4.20-5.40 [facility] Reticulocytes/100 RBC Auto ( Bld)on 12-06-2023 Reticulocytes/100 RBC (Bld) 2.59 % 0.60-3.10 [facility] Serum or plasma albumin/glob ulin mass ratioon 12-06-2023 Albumin/Globulin [Mass ratio] 0.7 {ratio} [facility] Serum or plasma anion gap de terminationon 12-06-2023 Anion gap [Moles/Vol] 11.7 mmol/L [facility] Albumin [Mass/volume] in Ser um or Plasma by Bromocresol green (BCG) dye binding methoOrdered By: Da Lozano on 12-02-2023 Albumin BCG dye [Mass/Vol] 3.7 g/dL 3.5-5.7 [facility] Cotinine [Mass/volume] in Se rum or PlasmaOrdered By: Da Lozano on 12-02-2023 Cotinine [Mass/Vol] <1.0 ng/mL . [facility] Comment on above: This test was develo ped and its performance characteristicsdetermined by [employer]. It has not been cleared orapproved by the Food and Drug Administration.Cotinine levels greater than 20.0 are consistent with theuse of tobacco or tobacco cessation products.Performed at: [facility] Lab[address] [id number] Director: Navneet Carcamo MD, Phone: [phone] Glucose mean value [Mass/vol ume] in Blood Estimated from glycated hemoglobinOrdered By: Da Lozano on 12-02-2023 Average glucose Estimated from glycated hemoglobin (Bld) [Mass/Vol] 166 mg/dL [facility] Hemoglobin A1c percentageOrd ered By: Da Lozano on 12-02-2023 HbA1c (Bld) [Mass fraction] 7.4 % High 4.3-5.6 [facility] Comment on above: Increased risk for d iabetes: 5.7 - 6.4diabetes: >6.4glycemic control for adults with diabetes: <7.0 Hemoglobin [Mass/volume] in BloodOrdered By: Da Lozano on 12-02-2023 Hemoglobin (Bld) [Mass/Vol] 10.3 g/dL Low 11.8-15.4 [facility] Nicotine [Mass/volume] in Se rum or PlasmaOrdered By: Da Lozano on 12-02-2023 Nicotine [Mass/Vol] <1.0 ng/mL . [facility] Comment on above: This test was develo ped and its performance characteristicsdetermined by [employer]. It has not been cleared orapproved by the Food and Drug Administration.Nicotine levels greater than 2.0 are consistent with theuse of tobacco or tobacco cessation products. Vitamin D+Metabolites [Mass/ volume] in Serum or PlasmaOrdered By: Da Lozano on 12-02-2023 Vitamin D+Metabolites [Mass/Vol] 91.9 ng/mL 30-100 [facility] Comment on above: VITAMIN D STATUS 25( [place])VITAMIN D RANGE (ng/mL) Deficient <20 Insufficient 20 to <30Sufficient 30 to 100Reference: Laney FELICIANO,Abhijeet WOODARD, Stacey CHATMAN, et al. Evaluation,treatment, and prevention of vitamin D deficiency; an Endocrine Society clinical practice guideline. JCEM. 2010; 96(7):1911-30. Wound methicillin resistant Staphylococcus aureus (MRSA) cultureOrdered By: Da Lozano on 12-02-2023 MRSA isol Org specific cx Ql (Unsp spec) No MRSA Isolated 2 Days [facility] Glucose mean value [Mass/vol ume] in Blood Estimated from glycated hemoglobinon 11-22-2023 Average glucose Estimated from glycated hemoglobin (Bld) [Mass/Vol] 160 mg/dL [facility] Laboratory - Hematology and Cell countson 11-22-2023 HbA1c (Bld) [Mass fraction] 7.2 % High 4.5-6.2 [facility] Comment on above: ADA RECOMMENDED LIMI T 4.0 - 6.0ADA THERAPEUTIC TARGET < 7.0ACTION SUGGESTED> 7.0 Laboratory - Chemistry and C hemistry - challengeon 10-23-2023 Bilirubin Ql (U) Negative [facility] Glucose (U) [Mass/Vol] Negative [facility] Ketones Ql (U) Negative [facility] pH (U) 5 [pH] [facility] Specific gravity (U) [Rel density] 1.000 [facility] Urobilinogen (U) [Mass/Vol] 0.2 mg/dL [facility] Laboratory - Specimen inform ationon 10-23-2023 Appearance (U) Cloudy [facility] Color (U) Yellow [facility] Laboratory - Urinalysison Leukocyte esterase Test strip Ql (U) +++ [facility] Nitrite Ql (U) Negative [facility] Protein Ql (U) Negative [facility] No Panel Informationon 10-22 Urine Occult Blood Negative [facility] Home Health Recordson 2023 Home Health Records [id number] 3C#1.00TIFF Normal [facility] NM Heart Perfusion W stress and W radionuclide [place] 10-14-2023 Abnormal Lexiscan Myoview cardiac perfusion stress test. No myocardial ischemia by perfusion imaging. No myocardial infarction by perfusion imaging. Abnormal left ventricular systolic function with mild global hypokinesis. Left ventricular ejection fraction 48 %. No previous studies are available for comparison. Signed by: Charlotte Cordon 10/14/2023 4:27 PM Dictation workstation: [id number] Interpreted By: Charlotte Cordon, and Omar Hernandez STUDY: MYOCARDIAL PERFUSION STRESS TEST WITH LEXISCAN Performing facility: [facility], [address] [place] [address], [address], [address] Provider: Joey Morales MD, FACC PCP: Dr. Marsha Best Supervising provider: Joey Cobb DO, [facility] INDICATION: CAD; CABG ICM SOB; HISTORY: Gender: F; Age: 78 y/o ; Height: HT 149.9 cm cm; Weight: WT 74.844 kg kg. High Cholesterol; CAD; Diabetes; Previous [place]; HTN; SOB; Quit smoking 27 years ago. Cardiac catheterization on 2017. PTCA on 2017. CABG on 2017. COMPARISON: No comparison. ACCESSION NUMBER(S): [id number] ORDERING CLINICIAN: SHAHRZAD MORALES TECHNIQUE: ONE DAY protocol. Stress injection: [...] PERFUSION STRESS TEST WITH LEXISCAN Performing facility: [facility], [address] [place] [address], [address], [place] [address] [facility] Provider: Joey Morales MD, [facility] PCP: Dr. Marsha Best Supervising provider: Joey Cobb DO, [facility] INDICATION: CAD; CABG ICM SOB; HISTORY: Gender: F; Age: 78 y/o ; Height: HT 149.9 cm cm; Weight: WT 74.844 kg kg. High Cholesterol; CAD; Diabetes; Previous [place]; HTN; SOB; Quit smoking 27 years ago. Cardiac catheterization on 2017. PTCA on 2016. CABG on 2017. COMPARISON: No comparison. ACCESSION NUMBER(S): [id number] ORDERING CLINICIAN: SHAHRZAD MORALES TECHNIQUE: ONE DAY protocol. Stress injection: [...] Charlotte Cordon 10/14/2023 4:27 PM Dictation workstation: [id number] [facility] Work Phone: Radiology Study observation (narrative) [facility] Work Phone: NM Heart Perfusion W stress and W radionuclide IVOrdered By: Charlotte Cordon on 10-14-2023 [facility] Work Phone: NUCLEAR STRESS TESTon 2023 NUCLEAR STRESS TEST Interpreted By: Charlotte Cordon and Giannuzzi Michael STUDY: MYOCARDIAL PERFUSION STRESS TEST WITH LEXISCAN Performing facility: [facility], [address] [place] [address], [address], [address] Provider: Joey Morales MD, [facility] PCP: Dr. Marsha Best Supervising provider: Joey Cobb DO, [facility] INDICATION: CAD; CABG ICM SOB; HISTORY: Gender: F; Age: 78 y/o ; Height: HT 149.9 cm cm; Weight: WT 74.844 kg kg. High Cholesterol; CAD; Diabetes; Previous [place]; HTN; SOB; Quit smoking 27 years ago. Cardiac catheterization on 2017. PTCA on 2017. CABG on 2017. COMPARISON: No comparison. ACCESSION NUMBER(S): [id number] ORDERING CLINICIAN: SHAHRZAD MORALES TECHNIQUE: ONE DAY protocol. Stress injection: [...] Charlotte Cordon 10/14/2023 4:27 PM Dictation workstation: [id number] [facility] Home Health Recordson 2023 Home Health Records [id number] 6F#1.00TIFF [facility] Retail - Clinical Noteon Retail - Clinical Note [id number] 52#1.00TIFF [facility] Home Health Recordson 2023 Home Health Records [id number] 42#1.00TIFF [facility] Home Health Recordson 2023 Home Health Records [id number] 2A#1.00TIFF [facility] Home Health Records [id number] BC#1.00TIFF [facility] Home Health Recordson 2023 Home Health Records [id number] DA#1.00TIFF [facility] Home Health Recordson 2023 Home Health Records [id number] 8E#1.00TIFF [facility] ECG 12-Leadon 09-09-2023 ECG 12-Lead [id number] 37#1.00TIFF Normal [facility] Home Health Recordson 2023 Home Health Records [id number] A0#1.00TIFF Normal [facility] ED Note-Physicianon 09-01-19 ED Note-Physician [id number] 20#1.00TIFF Normal [facility] RAD - MISCon 09-01-2023 RAD - MISC [id number] 4E#1.00TIFF Normal [facility] Ambulatory Visit Summaryon 0 08-21-2023 Ambulatory [...] Maxine Sanchez This Is Your Medications List [facility] Prescription ([facility] D[facility] Prescription) acetaminophen [...] Appointments Friday 3:40 PM EDT With: Maxine Sanchze Where: [facility] [place] Normal [facility] Medicine Office/Clini c Noteon 08-21-2023 Family [...] of clutter to prevent tripping and/or falling. 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 Patient denies any problems with [...] monitor f (more content not included)... Normal [facility] Comment on above: Result Comment: Elec [...] EST, Weight Dosing HgbA1c Lab Specimen Collect [id number] 3. Long-term insulin use (Z79.4: group home (current) use of insulin) insulins changed to [...] virus vaccine, inactivated 07/03/2022 Recorded SARS-CoV-2 (COVID-19) mRNAMUL.ORD![id number] 06/17/2022 Re (more content not included)... Normal [facility] Comment on above: Result Comment: Elec tronically Signed By: Maxine Sanchez\.br\Date and Time Signed: 08/21/23 08:02 EST Formson 08-21-2023 Forms [id number] 0F#1.00TIFF Normal [facility] [id number] 08-21-2023 HbA1c (Bld) [Mass fraction] 8.2 % High <=5.9 [facility] Comment on above: Performed By: #### 7 [id number] #### [facility] [address] [place] [address] Patient Educationon 08-21-19 Patient Education [facility] Fall Prevention in the Home, Adult Falls [...] night-lights. ? Place frequently used items in aguw-ao-pyvgn places. Lower the shelves around your home [...] the way. ? Do not use floor occitan or wax that makes floors slippery. If [...] include working with a physical therapist or small engine trainer to improve your strength, balance, and endurance. Where to find more information ? Centers for Disease Control and Prevention, STEADI: www.cdc.gov ? National Rolla on Aging: www.jasmina.nih.gov Contact a health care [...] health ca (more content not included)... Normal [facility] Ambulatory Visit Summaryon 0 08-20-2023 Ambulatory [...] 3:40 PM EDT With: Maxine Sanchez Where: [facility] [place] Normal [facility] Ambulatory Visit Summary LEXI TATUM :1945 [...] you for choosing us for your care. [facility] Pre-Visit Planningon 023 Pre-Visit Planning -- From: Bibiana Walter To: Maxine Sanchez; Sent: 05/20/2023 08:13:06 ROSITA Subject: Pre-Visit Planning Due Date/Time: 05/20/2023 08:13:00 EST Caller Name: LEXI TATUM; Caller Number: Giovanni , M [facility] Maxine. During a pre-visit planning chart [...] feel free to contact me at extension [phone]. Thank you! Bibiana Walter LPN -- From: Maxine Sanchez To: Bibiana Walter; Sent: 05/28/2023 14:06:51 EST Subject: RE: Pre-Visit Planning Caller Name: LEXI TATUM; Caller Number: H , M chronic kidney disease stage 3, unspecified Normal [address] [place] [address] Pre-Visit Planning -- From: Bibiana Walter To: Maxine Sanchez; Sent: 05/20/2023 08:18:07 EST Subject: Pre-Visit Planning Due Date/Time: 05/20/2023 08:18:00 EST Caller Name: LEXI TATUM; Caller Number: H , Fermín Goodman. During a pre-visit planning chart [...] Type 1 diabetes and hypercholesterolemi a Normal [address] [place] [address] Ambulatory Visit Summaryon 1 07-21-2022 Ambulatory Visit Summary LEXI TATUM :1945 Visit Date:05/21/2023 Ambulatory Visit Instructions Your Diagnosis Type 1 diabetes mellitus with hypercholesterolemi a Long-term insulin use Former smoker BMI 40.0-44.9, adult Your Care Team Attending Physician - Maxine Sanchez Primary Care Physician - Maxine Sanchez This Is Your Medications List Misc Prescription ([facility] D[facility] Prescription) allopurinol [...] 11:00 AM EST With: Maxine Sanchez Where: [facility] [place] Normal [facility] Office/Clini c Noteon 05-21-2023 Family Medicine Office/Clinic [...] 3 months. Ordered: HgbA1c Lab Specimen Collect [id number] 2. Long-term insulin use (Z79.4: group home (current) use of insulin) see above Ordered: HgbA1c Lab Specimen Collect [id number] 3. Former smoker (Z87.891: Personal history of [...] virus vaccine, inactivated 07/03/2022 Recorded SARS-CoV-2 (COVID-19) mRNAMUL.ORD![id number] 06/17/2022 Recorded 2023-02-10: TPV75 SARS-CoV-2 (COVID-19) mRNA [...] Recorded pneumococcal 13-valent vaccine 10/30/[address] [facility] Comment on above: Result Comment: Elec tronically Signed By: Maxine Sanchez\.br\Date and Time Signed: 05/21/23 13:14 EST [id number] 05-21-2023 HbA1c (Bld) [Mass fraction] 8.7 % High <=5.9 [facility] Comment on above: Performed By: #### 7 [id number] #### [facility] [address] [place] [address] Ambulatory Visit Summaryon 0 03-05-2023 Ambulatory Visit [...] Appointments Friday 1:00 PM EDT With: Where: [address] \.br\ Medications\.br\ What How Much When Why [...] Vitamin D deficiency\.br\ Wellness examination\.br\ \.br\ [facility] Family Medicine Office/Clini c Noteon 03-05-2023 [...] continue BS log. may consider referral to life management teacher at that visit. 2. Flank pain [...] virus vaccine, inactivated 07/03/2022 Recorded SARS-CoV-2 (COVID-19) mRNAMUL.ORD![id number] 06/17/2022 Recorded 2023-02-10: TPV75 SARS-CoV-2 (COVID-19) mRNA [...] pneumococcal 13-valent vaccine 10/30/2016 Recorded Normal [facility] Comment on above: Result Comment: Elec tronically Signed By: Maxine Sanchez\.br\Date and Time Signed: 03/05/23 14:10 EDT CHEMISTRYOrdered [...] - 20 [facility] Remisol CHEMISTRYOrdered By: Natalio gilesolajean-pierre on 02-10-2023 HbA1c (Bld) [Mass fraction] 10.9 % High <=5.9% [facility] ChemAutoSS HEMATOLOGYOrdered By: SYSTEM SYSTEM on 02-10-2023 [...] 5.1 E9/L Normal 2.0 - 7.5 E9/L [facility] HemeAutoSS HEMATOLOGYOrdered By: Natalio Guerrero on 02-10-2023 Erythrocyte distribution width (RBC) [Ratio] 16.0 % High 10.9 - 14.2 % [facility] Hematocrit (Bld) [Volume fraction] 40.5 % Normal 34.0 - 46.0 % [facility] Hemoglobin (Bld) [Mass/Vol] 13.5 g/dL Normal 12.0 - 16.0 gm/dL [facility] MCH (RBC) [Entitic mass] 31.7 pg Normal 27.0 - 34.0 pg [facility] HemeAutoSS MCHC (RBC) [Mass/Vol] 33.3 g/dL Normal 31.4 - 36.0 gm/dL [facility] HemeAutoSS MCV (RBC) [Entitic vol] 95.4 fL Normal 80.0 - 100.0 fL [facility]eAutoSS Platelet mean volume (Bld) [Entitic vol] 10.1 fL Normal 6.4 - 10.8 fL [facility] Platelets (Bld) [#/Vol] 192.0 E9/L Normal 150.0 - 500.0 E9/L [facility] RBC (Bld) [#/Vol] 4.2 E12/L Low 4.3 - 5.9 E12/L [facility] WBC corrected for nucl RBC Auto (Bld) [#/Vol] 7.6 E9/L Normal 4.0 - 11.0 E9/L [facility] Office Visit (Cardiology)on 07-25-2022 Follow-up visit Diagnoses/Problems Assessed S/P CABG x 3 (V45.81) (Z95.1) Ischemic cardiomyopathy (414.8) (I25.5) Hyperlipidemia (272.4) (E78.5) HTN (hypertension) (401.9) (I10) History of angioplasty (V45.89) (Z98.62) History of Dyslipidemia (272.4) (E78.5) CAD, multiple vessel (414.00) (I25.10) History of [place] (myocardial infarction) (412) (I25.2) Statin intolerance (995.27) [...] - Retrospective Authorization; Done: 25Jul2022 History of [place] (myocardial infarction), HTN (hypertension) Renew: Carvedilol 25 [...] History of angioplasty (V45.89) (Z98.62) History of [place] (myocardial infarction) (412) (I25.2) HTN (hypertension) (401.9) [...] breath. Gastrointe (more content not included)... Normal [employer] Tobacco Screening.on 023 Adult depression screening assessment No [facility] 250 DO Work Phone: Fall risk assessment a) No falls within the last year [facility] 250 DO Work Phone: Tobacco use status CPHS b) No [facility]-[place] 250 DO Work Phone: CBC AUTO DIFFon 01-30-2022 BASO # 0.0 103/ul Normal 0.0-0.1 [facility] Comment on above: Performed By: #### C BC #### [facility] [address] [address] [address] Yarely Roe Basophils/100 WBC (Bld) 0.4 % Normal 0.2-2.0 [facility] Comment on above: Performed By: #### C BC #### [facility] [address] [address] [address] Yarely Roe EO # 0.2 103/ul Normal 0.0-0.7 [facility] Comment on above: Performed By: #### C BC #### [facility] [address] [place] [address] Dr. Yarely Roe Eosinophils/100 WBC (Bld) 2.3 % Normal 0.9-7.0 [facility] Comment on above: Performed By: #### C BC #### [facility] [address] [place] [address] Dr. Yarely Roe Erythrocyte distribution width (RBC) [Ratio] 14.8 % Normal 11.0-15.0 [facility] Comment on above: Performed By: #### C BC #### [facility] [address] [place] [address] Dr. Yarely Roe Hematocrit (Bld) [Volume fraction] 42.0 % Normal 36.0-48.0 [facility] Comment on above: Performed By: #### C BC #### [facility] [address] [place] [address] Dr. Yarely Roe Hemoglobin (Bld) [Mass/Vol] 13.7 g/dL Normal 12.0-16.0 [facility] Comment on above: Performed By: #### C BC #### [facility] [address] [place] [address] Dr. Yarely Roe IG # 0.03 10e3/ul Normal 0.00-0.03 [facility] Comment on above: Performed By: #### C BC #### [facility] [address] [place] [address] Dr. Yarely Roe IG % 0.4 % Normal 0.0-0.5 [facility] Comment on above: Performed By: #### C BC #### [facility] [address] [place] [address] Dr. Yarely Roe LYMPH # 1.7 103/ul Normal 1.2-3.8 [facility] Comment on above: Performed By: #### C BC #### [facility] [address] [place] [address] Dr. Yarely Roe Lymphocytes/100 WBC (Bld) 20.7 % Normal 20.5-60.0 [facility] Comment on above: Performed By: #### C BC #### [facility] [address] [place] [address] Dr. Yarely Roe MANUAL DIFF REQ NO Normal [facility] Comment on above: Performed By: #### C BC #### [facility] [address] [place] [address] Dr. Yarely Roe MCH (RBC) [Entitic mass] 31.9 pg Normal 26.7-34.0 [facility] Comment on above: Performed By: #### C BC #### [facility] [address] [place] [address] Dr. Yarely Roe MCHC (RBC) [Mass/Vol] 32.6 g/dL Normal 29.9-35.2 [facility] Comment on above: Performed By: #### C BC #### [facility] [address] [place] [address] Dr. Yarely Roe MCV (RBC) [Entitic vol] 97.7 fL Normal 81.0-99.0 [facility] Comment on above: Performed By: #### C BC #### [facility] [address] [place] [address] Dr. Yarely Roe MONO # 0.5 103/ul Normal 0.3-0.8 [facility] Comment on above: Performed By: #### C BC #### [facility] [address] [place] [address] Dr. Yarely Roe Monocytes/100 WBC (Bld) 5.9 % Normal 1.7-12.0 [facility] Comment on above: Performed By: #### C BC #### [facility] [address] [place] [address] Dr. Yarely Roe NEUT # 5.7 103/ul Normal 1.4-6.5 [facility] Comment on above: Performed By: #### C BC #### [facility] [address] [address] [address] Yarely Roe Neutrophils/100 WBC (Bld) 70.3 % Normal 43.0-75.0 [facility] Comment on above: Performed By: #### C BC #### [facility] [address] [place] [address] Dr. Yarely Roe Platelet mean volume (Bld) [Entitic vol] 11.0 fL Normal 9.5-13.5 [facility] Comment on above: Performed By: #### C BC #### [facility] [address] [address] [address] Yarely Roe PLT 196 103/ul Normal 150-450 [facility] Comment on above: Performed By: #### C BC #### [facility] [address] [place] [address] Dr. Yarely Roe RBC 4.30 106/ul Normal 4.20-5.40 [facility] Comment on above: Performed By: #### C BC #### [facility] [address] [place] [address] Dr. Yarely Roe WBC 8.1 103/ul Normal 4.0-11.0 [facility] Comment on above: Performed By: #### C BC #### [facility] [address] [place] [address] Dr. Yarely Roe GLYCOHEMOGLOBIN A1Con 2021 ADA RECOMMENDATION SEE BELOW Normal [facility] Comment on above: Result Comment: ADA RECOMMENDED LIMIT 4.0 - 6.0 ADA THERAPEUTIC TARGET < 7.0 ACTION SUGGESTED > 7.0 Performed By: #### A 1C #### [facility] [address] [place] [address] Dr. Yarely Roe Glucose [Mass/Vol] 223 mg/dL Normal [facility] Comment on above: Performed By: #### A 1C #### [facility] [address] [place] [address] Dr. Yarely Roe HbA1c (Bld) [Mass fraction] 9.4 % Critically high 4.5-6.2 [facility] Comment on above: Performed By: #### A 1C #### [facility] [address] [address] [address] Yarely Roe PROF CHEM 8 (BAS METB)on Anion gap [Moles/Vol] 13.4 mmol/L Normal [facility] Comment on above: Performed By: #### B MP #### [facility] [address] [address] [address] Yarely Roe Calcium [Mass/Vol] 9.5 mg/dL Normal 8.5-10.1 [facility] Comment on above: Performed By: #### B MP #### [facility] [address] [address] [address] Yarely Roe Chloride [Moles/Vol] 101 mmol/L Normal 98-107 [facility] Comment on above: Performed By: #### B MP #### [facility] [address] [place] [address] Dr. Yarely Roe CO2 [Moles/Vol] 28.6 mmol/L Normal 21.0-32.0 [facility] Comment on above: Performed By: #### B MP #### [facility] [address] [address] [address] Yarely Roe Creatinine [Mass/Vol] 1.46 mg/dL Critically high 0.55-1.02 [facility] Comment on above: Performed By: #### B MP #### [facility] [address] [address] [address] Yarely Roe EGFR-AF PRYDEINIG 42 mL/min/1.73m2 Critically low >=60 [facility] Comment on above: Performed By: #### B MP #### [facility] [address] [address] [address] Yarely Roe EGFR-NON AF PRYDEINIG 35 mL/min/1.73m2 Critically low >=60 [facility] Comment on above: Performed By: #### B MP #### [facility] [address] [address] [address] Yarely Roe Glucose [Mass/Vol] 288 mg/dL Critically high 74-106 [facility] Comment on above: Performed By: #### B MP #### [facility] [address] [address] [address] Yarely Roe Potassium [Moles/Vol] 4.0 mmol/L Normal 3.5-5.1 [facility] Comment on above: Performed By: #### B MP #### [facility] [address] [address] [address] Yarely Roe Sodium [Moles/Vol] 139 mmol/L Normal 136-145 [facility] Comment on above: Performed By: #### B MP #### [facility] [address] [address] [address] Yarely Roe Urea nitrogen [Mass/Vol] 27.0 mg/dL Critically high 7.0-18.0 [facility] Comment on above: Performed By: #### B MP #### [facility] [address] [place] [address] Dr. Yarely Roe Urea nitrogen/Creatinine [Mass ratio] 18.5 mg/mg Normal [facility] Comment on above: Performed By: #### B MP #### [facility] [address] [address] [address] Yarely Roe PROF CHEM 8 (BAS METB)on Anion gap [Moles/Vol] 11.9 mmol/L Normal [facility] Comment on above: Performed By: #### B MP #### [facility] [address] [address] [address] Yarely Roe Calcium [Mass/Vol] 9.1 mg/dL Normal 8.5-10.1 [facility] Comment on above: Performed By: #### B MP #### [facility] [address] [place] [address] Dr. Yarely Roe Chloride [Moles/Vol] 100 mmol/L Normal 98-107 [facility] Comment on above: Performed By: #### B MP #### [facility] [address] [address] [address] Yarely Roe CO2 [Moles/Vol] 30.8 mmol/L Normal 21.0-32.0 [facility] Comment on above: Performed By: #### B MP #### [facility] [address] [address] [address] Yarely Roe Creatinine [Mass/Vol] 1.27 mg/dL Critically high 0.55-1.02 [facility] Comment on above: Performed By: #### B MP #### [facility] [address] [address] [address] Yarely Roe EGFR-AF PRYDEINIG 50 mL/min/1.73m2 Critically low >=60 [facility] Comment on above: Performed By: #### B MP #### [facility] [address] [address] [address] Yarely Roe EGFR-NON AF PRYDEINIG 41 mL/min/1.73m2 Critically low >=60 [facility] Comment on above: Performed By: #### B MP #### [facility] [address] [address] [address] Yarely Roe Glucose [Mass/Vol] 166 mg/dL Critically high 74-106 [facility] Comment on above: Performed By: #### B MP #### [facility] [address] [address] [address] Yarely Roe Potassium [Moles/Vol] 3.7 mmol/L Normal 3.5-5.1 [facility] Comment on above: Performed By: #### B MP #### [facility] [address] [address] [address] Yarely Roe Sodium [Moles/Vol] 139 mmol/L Normal 136-145 [facility] Comment on above: Performed By: #### B MP #### [facility] [address] [address] [address] Yarely Roe Urea nitrogen [Mass/Vol] 20.0 mg/dL Critically high 7.0-18.0 [facility] Comment on above: Performed By: #### B MP #### [facility] [address] [address] [address] Yarely Roe Urea nitrogen/Creatinine [Mass ratio] 15.7 mg/mg Normal [facility] Comment on above: Performed By: #### B MP #### [facility] [address] [place], [place] [address] Dr. Yarely Roe Office Visit (Cardiology)on 11-02-2021 Follow-up visit Diagnoses/Problems Assessed Hyperlipidemia (272.4) (E78.5) Ischemic cardiomyopathy (414.8) (I25.5) HTN (hypertension) (401.9) (I10) History of [place] (myocardial infarction) (412) (I25.2) CAD, multiple vessel [...] Metabolic Panel; Status:Active - Retrospective Authorization; Requested for:[id number]; CAD, multiple vessel, Hyperlipidemia Renew: Rosuvastatin Calcium [...] signing my name below, I, Tristan Jurado LPNibyael, attest that this documentation has been prepared under the direction and in the presence of Dr. Shahrzad Morales MD. All medical record entries made [...] 2:24:53 PM (more content not included)... Normal [employer] Tobacco Screening.on 022 Adult depression screening assessment No [facility] Stat DO Work Phone: Fall risk assessment a) No falls within the last year [facility] [employer] 250 DO Work Phone: Tobacco use status CPHS b) No [facility] [employer] 250 DO Work Phone: XR LSPINE MIN [...] Vascular calcifications. Right pelvic vascular stent. IMPRESSION: [id number] degenerative changes with minimal anterolisthesis of L4 and L5 Electronically authenticated by: ALISSA RAMIREZ Date: 2021-10-16 07:05 Normal [facility] CBC AUTO DIFFon 10-15-2021 BASO # 0.0 103/ul Normal 0.0-0.1 [facility] Comment on above: Performed By: #### C BC #### [facility] [address] [address] [address] Yarely Roe Basophils/100 WBC (Bld) 0.3 % Normal 0.2-2.0 [facility] Comment on above: Performed By: #### C BC #### [facility] [address] [place] [address] Dr. Yarely Roe EO # 0.3 103/ul Normal 0.0-0.7 [facility] Comment on above: Performed By: #### C BC #### [facility] [address] [place] [address] Dr. Yarely Roe Eosinophils/100 WBC (Bld) 3.4 % Normal 0.9-7.0 [facility] Comment on above: Performed By: #### C BC #### [facility] [address] [place] [address] Dr. Yarely Roe Erythrocyte distribution width (RBC) [Ratio] 15.1 % Critically high 11.0-15.0 [facility] Comment on above: Performed By: #### C BC #### [facility] [address] [place] [address] Dr. Yarely Roe Hematocrit (Bld) [Volume fraction] 42.1 % Normal 36.0-48.0 [facility] Comment on above: Performed By: #### C BC #### [facility] [address] [place] [address] Dr. Yarely Roe Hemoglobin (Bld) [Mass/Vol] 13.5 g/dL Normal 12.0-16.0 [facility] Comment on above: Performed By: #### C BC #### [facility] [address] [place] [address] Dr. Yarely Roe IG # 0.04 10e3/ul Critically high 0.00-0.03 [facility] Comment on above: Performed By: #### C BC #### [facility] [address] [place] [address] Dr. Yarely Roe IG % 0.4 % Normal 0.0-0.5 [facility] Comment on above: Performed By: #### C BC #### [facility] [address] [place] [address] Dr. Yarely Roe LYMPH # 2.1 103/ul Normal 1.2-3.8 [facility] Comment on above: Performed By: #### C BC #### [facility] [address] [place] [address] Dr. Yarely Roe Lymphocytes/100 WBC (Bld) 22.9 % Normal 20.5-60.0 [facility] Comment on above: Performed By: #### C BC #### [facility] [address] [place] [address] Dr. Yarely Roe MANUAL DIFF REQ NO Normal [facility] Comment on above: Performed By: #### C BC #### [facility] [address] [place] [address] Dr. Yarely Roe MCH (RBC) [Entitic mass] 31.5 pg Normal 26.7-34.0 [facility] Comment on above: Performed By: #### C BC #### [facility] [address] [place] [address] Dr. Yarely Roe MCHC (RBC) [Mass/Vol] 32.1 g/dL Normal 29.9-35.2 [facility] Comment on above: Performed By: #### C BC #### [facility] [address] [place] [address] Dr. Yarely Roe MCV (RBC) [Entitic vol] 98.1 fL Normal 81.0-99.0 [facility] Comment on above: Performed By: #### C BC #### [facility] [address] [place] [address] Dr. Yarely Roe MONO # 0.6 103/ul Normal 0.3-0.8 [facility] Comment on above: Performed By: #### C BC #### [facility] [address] [place] [address] Dr. Yarely Roe Monocytes/100 WBC (Bld) 6.1 % Normal 1.7-12.0 [facility] Comment on above: Performed By: #### C BC #### [facility] [address] [place] [address] Dr. Yarely Roe NEUT # 6.2 103/ul Normal 1.4-6.5 [facility] Comment on above: Performed By: #### C BC #### [facility] [address] [address] [address] Yarely Roe Neutrophils/100 WBC (Bld) 66.9 % Normal 43.0-75.0 [facility] Comment on above: Performed By: #### C BC #### [facility] [address] [address] [address] Yarely Roe Platelet mean volume (Bld) [Entitic vol] 10.9 fL Normal 9.5-13.5 [facility] Comment on above: Performed By: #### C BC #### [facility] [address] [address] [address] Yarely Roe PLT 220 103/ul Normal 150-450 [facility] Comment on above: Performed By: #### C BC #### [facility] [address] [place] [address] Dr. Yarely Roe RBC 4.29 106/ul Normal 4.20-5.40 [facility] Comment on above: Performed By: #### C BC #### [facility] [address] [address] [address] Yarely Roe WBC 9.2 103/ul Normal 4.0-11.0 [facility] Comment on above: Performed By: #### C BC #### [facility] [address] [place] [address] Dr. Yarely Roe GLYCOHEMOGLOBIN A1Con 2021 ADA RECOMMENDATION ADA THERAPEUTIC TARGET 6.0 - 7.0 ACTION SUGGESTED > 7.0 Normal [facility] Comment on above: Performed By: #### A 1C #### [facility] [address] [place] [address] Dr. Yarely Roe Glucose [Mass/Vol] 183 mg/dL Normal [facility] Comment on above: Performed By: #### A 1C #### [facility] [address] [place] [address] Dr. Yarely Roe HbA1c (Bld) [Mass fraction] 8.0 % Critically high <=6.0 [facility] Comment on above: Performed By: #### A 1C #### [facility] [address] [place], [place] [id number] Dr. Yarely Roe PROF 14(COMP METB)on 022 Albumin [Mass/Vol] 3.4 g/dL Normal 3.4-5.0 [facility] Comment on above: Performed By: #### C MP #### [facility] [address] [place] [address] Dr. Yarely Roe Albumin/Globulin [Mass ratio] 0.8 {ratio} Normal [facility] Comment on above: Performed By: #### C MP #### [facility] [address] [place] [address] Dr. aYrely Roe ALP [Catalytic activity/Vol] 59 U/L Normal 46-116 [facility] Comment on above: Performed By: #### C MP #### [facility] [address] [place] [address] Dr. Yarely Roe ALT [Catalytic activity/Vol] 9 U/L Critically low 14-59 [facility] Comment on above: Performed By: #### C MP #### [facility] [address] [place] [address] Dr. Yarely Roe Anion gap [Moles/Vol] 11.3 mmol/L Normal [facility] Comment on above: Performed By: #### C MP #### [facility] [address] [place] [address] Dr. Yarely Roe AST [Catalytic activity/Vol] 15 U/L Normal 15-37 [facility] Comment on above: Performed By: #### C MP #### [facility] [address] [place] [address] Dr. Yarely Roe Bilirubin [Mass/Vol] 0.3 mg/dL Normal 0.2-1.3 [facility] Comment on above: Performed By: #### C MP #### [facility] [address] [place] [address] Dr. Yarely Roe Calcium [Mass/Vol] 9.4 mg/dL Normal 8.5-10.1 [facility] Comment on above: Performed By: #### C MP #### [facility] [address] [place] [address] Dr. Yarely Roe Chloride [Moles/Vol] 97 mmol/L Critically low 98-107 [facility] Comment on above: Performed By: #### C MP #### [facility] [address] [place] [address] Dr. Yarely Roe CO2 [Moles/Vol] 33.0 mmol/L Critically high 22.0-30.0 [facility] Comment on above: Performed By: #### C MP #### [facility] [address] [address] [address] Yarely Roe Creatinine [Mass/Vol] 1.40 mg/dL Critically high 0.52-1.04 [facility] Comment on above: Performed By: #### C MP #### [facility] [address] [place] [address] Dr. Yarely Roe EGFR-AF PRYDEINIG 44 mL/min/1.73m2 Critically low >=60 [facility] Comment on above: Performed By: #### C MP #### [facility] [address] [place] [address] Dr. Yarely Roe EGFR-NON AF PRYDEINIG 37 mL/min/1.73m2 Critically low >=60 [facility] Comment on above: Performed By: #### C MP #### [facility] [address] [place] [address] Dr. Yarely Roe Globulin (S) [Mass/Vol] 4.3 g/dL Normal [facility] Comment on above: Performed By: #### C MP #### [facility] [address] [place] [address] Dr. Yarely Roe Glucose [Mass/Vol] 224 mg/dL Critically high 74-106 [facility] Comment on above: Performed By: #### C MP #### [facility] [address] [place] [address] Dr. Yarely Roe Potassium [Moles/Vol] 3.3 mmol/L Critically low 3.4-5.0 [facility] Comment on above: Performed By: #### C MP #### [facility] [address] [place] [address] Dr. Yarely Roe Protein [Mass/Vol] 7.7 g/dL Normal 6.1-8.2 [facility] Comment on above: Performed By: #### C MP #### [facility] [address] [address] [address] Yarely Roe Sodium [Moles/Vol] 138 mmol/L Normal 137-145 [facility] Comment on above: Performed By: #### C MP #### [facility] [address] [address] [address] Yarely Roe Urea nitrogen [Mass/Vol] 27.0 mg/dL Critically high 7.0-18.0 [facility] Comment on above: Performed By: #### C MP #### [facility] [address] [address] [address] Yarely Roe Urea nitrogen/Creatinine [Mass ratio] 19.3 mg/mg Normal [facility] Comment on above: Performed By: #### C MP #### [facility] [address] [address] [address] Yarely Roe [facility] Carotid Artery Dupl ex Ultrasounon 05-08-2020 [facility] Carotid Artery Duplex Ultrasoun [address], [address] [place] [address] Vascular Lab Report Carotid Artery Duplex Ultrasound Patient Name: LEXI CASTILLO Reading Physician: [id number] Charlotte Cordon MD, [facility] Study Date: 05/08/2020 Referring Physician: [id number] Shahrzad Morales MD MRN/PID: [id number] PCP: Li Lee Accession/Order#: [id number] CC Report to: Date of : 1945 Technologist: Surekha Hartley RD, T Gender: F Technologist 2: Admission Status: Outpatient Location Performed: [facility] Diagnosis/ICD: R09.89-Other specified symptoms and signs involving the circulatory and respiratory systems Indication: Diabetes, Hyperlipidemia, Former Smoker, Vertigo, CAD, CABG, Ischemic Cardiomyopathy, PTCA, [place], Obesity Procedure/CPT: 20078 Cerebrovascular Carotid Duplex scan complete-30055 CONCLUSIONS: Right Carotid: Findings are consistent with [...] cm/s Right Left ICA/CCA Ratio 2.2 0.9 [id number] Charlotte Cordon MD, FACC Final Normal [facility] HEMOGLOBIN A1Con 06-17-2019 HbA1c (Bld) [Mass fraction] 7.5 % Normal [facility] Comment on above: Result Comment: Diag nosis of Diabetes-Adults Non-Diabetic: < or = 5.6% Increased risk for developing diabetes: 5.7-6.4% Diagnostic of diabetes: > or = 6.5% . Monitoring of Diabetes Age (y) Therapeutic Goal (%) Adults: >18 <7.0 Pediatrics: 13-18 <7.5 7-12 <8.0 0- 6 7.5-8.5 [employer]. Diabetes Care 33(S1), Jul 2009. Performed By: #### H [facility] #### [facility] [address] [place] [address] HbA1c (Bld) [Mass fraction] 169 MG/DL Normal [facility] Comment on above: Performed By: #### H BA1E #### [facility] [address] [place] [address] Anthony 06-16-2019 AST [Catalytic activity/Vol] 18 U/L Normal 9 - 39 [facility] Comment on above: Order Comment: Desean nt states she had black coffee this a.m. Performed By: #### A ST #### [address] [address] COMPREHENSIVE PANELon 2018 Albumin [Mass/Vol] 4.1 g/dL Normal 3.4 - 5.0 [facility] Comment on above: Performed By: #### C MP #### [address] [address] ALP [Catalytic activity/Vol] 62 U/L Normal 33 - 136 [facility] Comment on above: Performed By: #### C MP #### [address] [address] ALT [Catalytic activity/Vol] 12 U/L Normal 7 - 45 [facility] Comment on above: Result Comment: Yareli ents treated with Sulfasalazine may generate falsely decreased results for ALT. Performed By: #### C MP #### [address] [address] Anion gap [Moles/Vol] 13 mmol/L Normal 10 - 20 [facility] Comment on above: Performed By: #### C MP #### [address] [address] AST [Catalytic activity/Vol] 16 U/L Normal 9 - 39 [facility] Comment on above: Performed By: #### C MP #### [address] [address] Bilirubin [Mass/Vol] 0.5 mg/dL Normal 0.0 - 1.2 [facility] Comment on above: Performed By: #### C MP #### [address] [address] Calcium [Mass/Vol] 9.8 mg/dL Normal 8.6 - 10.3 [facility] Comment on above: Performed By: #### C MP #### [address] [address] Chloride [Moles/Vol] 103 mmol/L Normal 98 - 107 [facility] Comment on above: Performed By: #### C MP #### [address] [address] Creatinine [Mass/Vol] 1.32 mg/dL High 0.50 - 1.05 [facility] Comment on above: Performed By: #### C MP #### [address] [address] GFR- AM. 47 mL/min/1.73m2 Abnormal >60 [facility] Comment on above: Result Comment: CALC ULATIONS OF ESTIMATED GFR ARE PERFORMED USING THE MDRD STUDY EQUATION FOR THE IDMS-TRACEABLE CREATININE METHODS. CLIN CHEM 2007;53:766-72 Performed By: #### C MP #### [address] [address] GFR-NON AM. 39 mL/min/1.73m2 Abnormal >60 [facility] Comment on above: Performed By: #### C MP #### [address] [address] Glucose [Mass/Vol] 115 mg/dL High 74 - 99 [facility] Comment on above: Performed By: #### C MP #### [address] [address] HCO3 (Bld) [Moles/Vol] 25 mmol/L Normal 21 - 32 [facility] Comment on above: Performed By: #### C MP #### [address] [address] Potassium [Moles/Vol] 5.4 mmol/L High 3.5 - 5.3 [facility] Comment on above: Performed By: #### C MP #### [address] [address] Protein [Mass/Vol] 7.5 g/dL Normal 6.4 - 8.2 [facility] Comment on above: Performed By: #### C MP #### [address] [address] Sodium [Moles/Vol] 136 mmol/L Normal 136 - 145 [facility] Comment on above: Performed By: #### C MP #### [address] [address] Urea nitrogen [Mass/Vol] 40 mg/dL High 6 - 23 [facility] Comment on above: Performed By: #### C MP #### [address] [address] LIPID PANEL (CORONARY RISK 2 )on 06-16-2019 Cholesterol [Mass/Vol] 182 mg/dL Normal 0 - 199 [facility] Comment on above: Order Comment: Desean nt [...] dosing. Performed By: #### L IPID #### [address] [address] Cholesterol in HDL [Mass/Vol] 39.0 mg/dL Abnormal [facility] Comment on above: Order Comment: Desean nt states she had black coffee this a.m. Result Comment: . AGE VERY LOW LOW NORMAL HIGH 0-19 Y < 35 < 40 40-45 ---- 20-24 Y ---- < 40 >45 ---- >24 Y ---- < 40 40-60 >60 . Performed By: #### L IPID #### [address] [address] Cholesterol in LDL [Mass/Vol] 92 mg/dL Normal 0 - 99 [facility] Comment on above: Order Comment: Desean hernandez states she had black coffee this a.m. Result Comment: . NEAR BORD AGE DESIRABLE OPTIMAL HIGH HIGH VERY HIGH 0-19 Y 0 - 109 --- 110-129 >/= 130 ---- 20-24 Y 0 - 119 --- 120-159 >/= 160 ---- >24 Y 0 - 99 100-129 130-159 160-189 >/=190 . Performed By: #### L IPID #### [address] [address] Cholesterol in VLDL [Mass/Vol] 51 mg/dL High 0 - 40 [facility] Comment on above: Order Comment: Desean hernandez states she had black coffee this a.m. Performed By: #### L IPID #### [address] [address] Cholesterol.total/C holesterol in HDL [Mass ratio] 4.7 {ratio} Normal [facility] Comment on above: Order Comment: Desean hernandez states she had black coffee this a.m. Result Comment: REF VALUES DESIRABLE < 3.4 HIGH RISK > 5.0 Performed By: #### L IPID #### [address] [address] NON-HDL CHOLESTEROL 143 mg/dL Normal [facility] Comment on above: Order Comment: Desean hernandez states she had black coffee this a.m. Result Comment: AGE DESIRABLE BORDERLINE HIGH HIGH VERY HIGH 0-19 Y 0 - 119 120 - 144 >/= 145 >/= 160 20-24 Y 0 - 149 150 - 189 >/= 190 ---- >24 Y 30 MG/DL ABOVE LDL CHOLESTEROL GOAL . Performed By: #### L IPID #### [address] [address] Triglyceride [Mass/Vol] 255 mg/dL High 0 - 149 [facility] Comment on above: Order Comment: Desean nt [...] dosing. Performed By: #### L IPID #### [address] [address] Vital Signs Date Time Vital Sign Value Performing Clinician Facility 04-09-2025 11:15-0400 Diastolic blood pressure 67 mm[Hg] Stefan Best MD Work Phone: [facility] 04-09-2025 11:15-0400 Heart rate 70 /min Stefan Best MD Work Phone: [facility] 04-09-2025 11:15-0400 Respiratory rate 16 /min Stefan Best MD Work Phone: [facility] 04-09-2025 11:15-0400 SaO2% (BldA) [Mass fraction] 97 % Stefan Best MD Work Phone: [facility] 04-09-2025 11:15-0400 Systolic blood pressure 110 mm[Hg] Stefan Best MD Work Phone: [facility] 04-09-2025 08:00-0400 Body temperature 98.2 [degF] Stefan Best MD Work Phone: [facility] 04-09-2025 08:00-0400 Inhaled oxygen flow rate 2 L/min Stefan Best MD Work Phone: [facility] 04-09-2025 06:34-0400 Body weight 79.9 kg Stefan Best MD Work Phone: [facility] 04-07-2025 23:39-0400 Body height 149.86 cm Stefan Bset MD Work Phone: [facility] 04-04-2025 11:30-0400 Body temperature 97.8 [degF] Stefan Best MD Work Phone: [facility] 04-04-2025 11:30-0400 Diastolic blood pressure 77 mm[Hg] Stefan Best MD Work Phone: [facility] 04-04-2025 11:30-0400 Heart rate 80 /min Stefan Best MD Work Phone: [facility] 04-04-2025 11:30-0400 Respiratory rate 16 /min Stefan Best MD Work Phone: [facility] 04-04-2025 11:30-0400 SaO2% (BldA) [Mass fraction] 95 % Stefan Best MD Work Phone: [facility] 04-04-2025 11:30-0400 Systolic blood pressure 143 mm[Hg] Stefan Best MD Work Phone: [facility] 04-03-2025 05:22-0400 Body weight 79.6 kg Stefan Best MD Work Phone: [facility] 03-22-2025 18:10-0400 Body height 149.86 cm Stefan Best MD Work Phone: [facility] 03-22-2025 15:53-0400 Body temperature 98.6 [degF] Stefan Best MD Work Phone: [facility] 03-22-2025 15:53-0400 Diastolic blood pressure 72 mm[Hg] Stefan Best MD Work Phone: [facility] 03-22-2025 15:53-0400 Heart rate 61 /min Stefan Best MD Work Phone: [facility] 03-22-2025 15:53-0400 Respiratory rate 16 /min Stefan Best MD Work Phone: [facility] 03-22-2025 15:53-0400 SaO2% (BldA) [Mass fraction] 94 % Stefan Best MD Work Phone: [facility] 03-22-2025 15:53-0400 Systolic blood pressure 132 mm[Hg] Stefan Best MD Work Phone: [facility] 03-22-2025 05:03-0400 Body weight 71.7 kg Stefan Best MD Work Phone: [facility] 03-21-2025 15:25-0400 Inhaled oxygen flow rate 3 L/min Stefan Best MD Work Phone: [facility] 03-21-2025 11:06-0400 Body height 149.86 cm Stefan Best MD Work Phone: [facility] 03-09-2025 14:50-0400 Diastolic blood pressure 80 mm[Hg] Stefan Best MD Work Phone: [facility] 03-09-2025 14:50-0400 Systolic blood pressure 138 mm[Hg] Stefan Best MD Work Phone: [facility] 02-08-2025 15:38-0400 Body height 149.86 cm Stefan Best MD Work Phone: [facility] 02-08-2025 15:38-0400 Body mass index (BMI) [Ratio] 31.7 kg/m2 Stefan Best MD Work Phone: [facility] 02-08-2025 15:38-0400 Body weight 71.21 kg Stefan Best MD Work Phone: [facility] 02-08-2025 15:38-0400 Diastolic blood pressure 80 mm[Hg] Stefan Best MD Work Phone: [facility] 02-08-2025 15:38-0400 Heart rate 69 /min Stefan Best MD Work Phone: [facility] 02-08-2025 15:38-0400 Respiratory rate 16 /min Stefan Best MD Work Phone: [facility] 02-08-2025 15:38-0400 SaO2% (BldA) [Mass fraction] 96 % Stefan Best MD Work Phone: [facility] 02-08-2025 15:38-0400 Systolic blood pressure 144 mm[Hg] Stefan Best MD Work Phone: [facility] 01-31-2025 15:30-0400 Body height 149.86 cm Stefan Best MD Work Phone: [facility] 01-31-2025 15:30-0400 Body mass index (BMI) [Ratio] 31.7 kg/m2 Stefan Best MD Work Phone: [facility] 01-31-2025 15:30-0400 Body weight 71.21 kg Stefan Best MD Work Phone: [facility] 01-31-2025 15:30-0400 Diastolic blood pressure 75 mm[Hg] Stefan Best MD Work Phone: [facility] 01-31-2025 15:30-0400 Heart rate 76 /min Stefan Best MD Work Phone: [facility] 01-31-2025 15:30-0400 Systolic blood pressure 153 mm[Hg] Stefan Best MD Work Phone: [facility] 01-11-2025 15:20-0400 Body height 149.86 cm Stefan Best MD Work Phone: [facility] 01-11-2025 15:20-0400 Body mass index (BMI) [Ratio] 33.3 kg/m2 Stefan Best MD Work Phone: [facility] 01-11-2025 15:20-0400 Body weight 74.84 kg Steafn Best MD Work Phone: [facility] 01-11-2025 15:20-0400 Diastolic blood pressure 80 mm[Hg] Stefan Best MD Work Phone: [facility] 01-11-2025 15:20-0400 Heart rate 72 /min Stefan Best MD Work Phone: [facility] 01-11-2025 15:20-0400 SaO2% (BldA) [Mass fraction] 99 % Stefan Best MD Work Phone: [facility] 01-11-2025 15:20-0400 Systolic blood pressure 126 mm[Hg] Stefan Best MD Work Phone: [facility] 10-22-2024 10:09-0400 Diastolic blood pressure 81 mm[Hg] Stefan Best MD Work Phone: [facility] 10-22-2024 10:09-0400 Heart rate 62 /min Stefan Best MD Work Phone: [facility] 10-22-2024 10:09-0400 Respiratory rate 16 /min Stefan Best MD Work Phone: [facility] 10-22-2024 10:09-0400 SaO2% (BldA) [Mass fraction] 95 % Stefan Best MD Work Phone: [facility] 10-22-2024 10:09-0400 Systolic blood pressure 154 mm[Hg] Stefan Best MD Work Phone: [facility] 10-22-2024 09:24-0400 Body temperature 97.2 [degF] Stefan Best MD Work Phone: [facility] 10-22-2024 09:24-0400 Inhaled oxygen flow rate 6 L/min Stefan Best MD Work Phone: [facility] 10-22-2024 06:33-0400 Body height 149.86 cm Stefan Best MD Work Phone: [facility] 10-22-2024 06:33-0400 Body weight 74.84 kg Stefan Best MD Work Phone: [facility] 10-04-2024 15:31-0400 Body height 149.86 cm Stefan Best MD Work Phone: [facility] 10-04-2024 15:31-0400 Body mass index (BMI) [Ratio] 33.3 kg/m2 Stefan Best MD Work Phone: [facility] 10-04-2024 15:31-0400 Body weight 74.84 kg Stefan Best MD Work Phone: [facility] 10-04-2024 15:31-0400 Diastolic blood pressure 81 mm[Hg] Stefan Best MD Work Phone: [facility] 10-04-2024 15:31-0400 Heart rate 71 /min Stefan Best MD Work Phone: [facility] 10-04-2024 15:31-0400 Respiratory rate 12 /min Stefan Best MD Work Phone: [facility] 10-04-2024 15:31-0400 SaO2% (BldA) [Mass fraction] 96 % Stefan Best MD Work Phone: [facility] 10-04-2024 15:31-0400 Systolic blood pressure 155 mm[Hg] Stefan Best MD Work Phone: [facility] 08-11-2024 15:39-0500 Diastolic blood pressure 60 mm[Hg] Angela Braun [employer] Work Phone: [facility] 08-11-2024 15:39-0500 Systolic blood pressure 102 mm[Hg] Angela Braun [employer] Work Phone: [facility] 08-11-2024 15:23-0500 Body height 149.9 cm Angela Braun [employer] Work Phone: [facility] 08-11-2024 15:23-0500 Body mass index (BMI) [Ratio] 33.33 kg/m2 Angela Braun [employer] Work Phone: [facility] 08-11-2024 15:23-0500 Body weight 74.84 kg Angela Braun [employer] Work Phone: [facility] 08-11-2024 15:23-0500 Heart rate 54 /min Angela Kade [employer] Work Phone: [facility] 08-03-2024 11:09-0500 Body height 149.86 cm Stefan Best MD Work Phone: [facility] 08-03-2024 11:09-0500 Diastolic blood pressure 71 mm[Hg] Stefan Best MD Work Phone: [facility] 08-03-2024 11:09-0500 Heart rate 66 /min Stefan Best MD Work Phone: [facility] 08-03-2024 11:09-0500 Respiratory rate 16 /min Stefan Best MD Work Phone: [facility] 08-03-2024 11:09-0500 SaO2% (BldA) [Mass fraction] 96 % Stefan Best MD Work Phone: [facility] 08-03-2024 11:09-0500 Systolic blood pressure 153 mm[Hg] Stefan Best MD Work Phone: [facility] 07-01-2024 11:08-0500 Body height 149.86 cm Stefan Best MD Work Phone: [facility] 07-01-2024 11:08-0500 Body mass index (BMI) [Ratio] 33.3 kg/m2 Stefan Best MD Work Phone: [facility] 07-01-2024 11:08-0500 Body weight 74.84 kg Stefan Best MD Work Phone: [facility] 07-01-2024 11:08-0500 Diastolic blood pressure 72 mm[Hg] Stefan Best MD Work Phone: [facility] 07-01-2024 11:08-0500 Heart rate 78 /min Stefan Bset MD Work Phone: [facility] 07-01-2024 11:08-0500 SaO2% (BldA) [Mass fraction] 96 % Stefan Best MD Work Phone: [facility] 07-01-2024 11:08-0500 Systolic blood pressure 128 mm[Hg] Stefan Best MD Work Phone: [facility] 06-28-2024 10:38-0500 Body height 149.86 cm Stefan Best MD Work Phone: [facility] 06-28-2024 10:38-0500 Body mass index (BMI) [Ratio] 33.3 kg/m2 Stefan Best MD Work Phone: [facility] 06-28-2024 10:38-0500 Body weight 74.84 kg Stfean Best MD Work Phone: [facility] 06-24-2024 10:14-0500 Body height 149.86 cm Stefan Best MD Work Phone: [facility] 06-24-2024 10:14-0500 Body temperature 98.1 [degF] Stefan Best MD Work Phone: [facility] 06-24-2024 10:14-0500 Body weight 74.84 kg Stefan Best MD Work Phone: [facility] 06-24-2024 10:14-0500 Diastolic blood pressure 59 mm[Hg] Stefan Best MD Work Phone: [facility] 06-24-2024 10:14-0500 Heart rate 66 /min Stefan Best MD Work Phone: [facility] 06-24-2024 10:14-0500 Respiratory rate 14 /min Stefan Best MD Work Phone: [facility] 06-24-2024 10:14-0500 SaO2% (BldA) [Mass fraction] 97 % Stefan Best MD Work Phone: [facility] 06-24-2024 10:14-0500 Systolic blood pressure 143 mm[Hg] Stefan Best MD Work Phone: [facility] 2024 10:02-0500 Diastolic blood pressure 68 mm[Hg] Stefan Best MD Work Phone: [facility] 2024 10:02-0500 Heart rate 67 /min Stefan Best MD Work Phone: [facility] 2024 10:02-0500 Respiratory rate 20 /min Stefan Best MD Work Phone: [facility] 2024 10:02-0500 SaO2% (BldA) [Mass fraction] 97 % Stefan Best MD Work Phone: [facility] 2024 10:02-0500 Systolic blood pressure 166 mm[Hg] Stefan Best MD Work Phone: [facility] 2024 09:12-0500 Body temperature 97.2 [degF] Stefan Best MD Work Phone: [facility] 2024 07:28-0500 Body height 149.86 cm Stefan Best MD Work Phone: [facility] 2024 07:28-0500 Body weight 74.84 kg Stefan Best MD Work Phone: [facility] 05-20-2024 10:00-0500 Body height 149.86 cm Stefan Best MD Work Phone: [facility] 05-20-2024 10:00-0500 Body mass index (BMI) [Ratio] 33.3 kg/m2 Stefan Best MD Work Phone: [facility] 05-20-2024 10:00-0500 Body weight 74.84 kg Stefan Best MD Work Phone: [facility] 05-20-2024 10:00-0500 Diastolic blood pressure 82 mm[Hg] Stefan Best MD Work Phone: [facility] 05-20-2024 10:00-0500 Heart rate 65 /min Stefan Best MD Work Phone: [facility] 05-20-2024 10:00-0500 SaO2% (BldA) [Mass fraction] 96 % Stefan Best MD Work Phone: [facility] 05-20-2024 10:00-0500 Systolic blood pressure 132 mm[Hg] Stefan Best MD Work Phone: [facility] 03-22-2024 14:23-0400 Body height 149.86 cm MD Stefan Best Work Phone: [facility] 03-22-2024 14:23-0400 Body mass index (BMI) [Ratio] 33.3 kg/m2 MD Stefan Best Work Phone: [facility] 03-22-2024 14:23-0400 Body temperature 96.7 [degF] MD Stefan Best Work Phone: [facility] 03-22-2024 14:23-0400 Body weight 74.84 kg MD Stefan Bets Work Phone: [facility] 03-22-2024 14:23-0400 Diastolic blood pressure 70 mm[Hg] MD Stefan Best Work Phone: [facility] 03-22-2024 14:23-0400 Heart rate 76 /min MD Stefan Best Work Phone: [facility] 03-22-2024 14:23-0400 Respiratory rate 16 /min MD Stefan Best Work Phone: [facility] 03-22-2024 14:23-0400 SaO2% (BldA) [Mass fraction] 97 % MD Stefan Best Work Phone: [facility] 03-22-2024 14:23-0400 Systolic blood pressure 130 mm[Hg] MD Stefan Best Work Phone: [facility] 03-05-2024 13:28-0400 Body height 149.86 cm MD Stefan Best Work Phone: [facility] 03-05-2024 13:28-0400 Body mass index (BMI) [Ratio] 33.3 kg/m2 MD Stefan Best Work Phone: [facility] 03-05-2024 13:28-0400 Body weight 74.84 kg MD Stefan Best Work Phone: [facility] 03-05-2024 13:28-0400 Diastolic blood pressure 82 mm[Hg] MD Stefan Best Work Phone: [facility] 03-05-2024 13:28-0400 Heart rate 74 /min MD Stefan Best Work Phone: [facility] 03-05-2024 13:28-0400 Systolic blood pressure 147 mm[Hg] MD Stefan Best Work Phone: [facility] 02-29-2024 17:00-0400 Hourly Rounding Mbanefo OJUKWU [facility] 02-29-2024 17:00-0400 Promise to Return Mbanefo OJUKWU [facility] 02-29-2024 16:00-0400 Diastolic blood pressure 60 mm[Hg] Mbanefo OJUKWU [facility] 02-29-2024 16:00-0400 Heart rate 80 /min Mbanefo OJUKWU [facility] 02-29-2024 16:00-0400 Hourly Rounding Mbanefo OJUKWU [facility] 02-29-2024 16:00-0400 Mean blood pressure 78 mm[Hg] Mbanefo OJUKWU [facility] 02-29-2024 16:00-0400 Promise to Return Mbanefo OJUKWU [facility] 02-29-2024 16:00-0400 Respiratory rate 16 /min Mbanefo OJUKWU [facility] 02-29-2024 16:00-0400 SaO2% (BldA) [Mass fraction] 98 % Mbanefo OJUKWU [facility] 02-29-2024 16:00-0400 Systolic blood pressure 114 mm[Hg] Mbanefo OJUKWU [facility] 02-29-2024 15:22-0400 Respiratory rate 18 /min Mbanefo OJUKWU [facility] 02-29-2024 15:22-0400 SaO2% (BldA) [Mass fraction] 92 % Mbanefo OJUKWU [facility] 02-29-2024 15:22-0400 SaO2% (BldA) [Mass fraction] 91 % Mbanefo OJUKWU [facility] 02-29-2024 15:00-0400 Hourly Rounding Mbanefo OJUKWU [facility] 02-29-2024 15:00-0400 Promise to Return Mbanefo OJUKWU [facility] 02-29-2024 11:18-0400 gluc 137 mg/dL Mbanefo OJUKWU [facility] 02-29-2024 10:52-0400 Heart rate 72 /min Mbanefo OJUKWU [facility] 02-29-2024 10:49-0400 Diastolic blood pressure 63 mm[Hg] Mbanefo OJUKWU [facility] 02-29-2024 10:49-0400 Mean blood pressure 80 mm[Hg] Mbanefo OJUKWU [facility] 02-29-2024 10:49-0400 Systolic blood pressure 115 mm[Hg] Mbanefo OJUKWU [facility] 02-29-2024 10:49-0400 Body temperature 98.24 [degF] Mbanefo OJUKWU [facility] 02-29-2024 07:55-0400 gluc 130 mg/dL Mbanefo OJUKWU [facility] 02-29-2024 07:40-0400 Respiratory rate 18 /min Mbanefo OJUKWU [facility] 02-29-2024 07:38-0400 Heart rate 73 /min Mbanefo OJUKWU [facility] 02-29-2024 07:36-0400 Blood Pressure Location Mbanefo OJUKWU [facility] 02-29-2024 07:36-0400 Diastolic blood pressure 54 mm[Hg] Mbanefo OJUKWU [facility] 02-29-2024 07:36-0400 Mean blood pressure 77 mm[Hg] Mbanefo OJUKWU [facility] 02-29-2024 07:36-0400 Systolic blood pressure 123 mm[Hg] Mbanefo OJUKWU [facility] 02-29-2024 07:35-0400 Body temperature 98.06 [degF] Mbanefo OJUKWU [facility] 02-29-2024 03:30-0400 Body temperature 97.34 [degF] Mbanefo OJUKWU [facility] 02-29-2024 03:30-0400 Mean blood pressure 75 mm[Hg] Mbanefo OJUKWU [facility] 02-28-2024 19:00-0400 Body temperature 98.78 [degF] Mbanefo OJUKWU [facility] 02-28-2024 17:47-0400 gluc 118 mg/dL Mbanefo OJUKWU [facility] 02-28-2024 17:16-0400 Mean blood pressure 94 mm[Hg] Mbanefo OJUKWU [facility] 02-28-2024 14:00-0400 Body temperature 100.04 [degF] Mbanefo OJUKWU [facility] 02-28-2024 14:00-0400 Mean blood pressure 97 mm[Hg] Mbanefo OJUKWU [facility] 02-28-2024 10:00-0400 Heart rate 73 /min Mbanefo OJUKWU [facility] 02-27-2024 03:33-0400 Respiratory rate 17 /min Mbanefo OJUKWU [facility] 02-26-2024 23:49-0400 Respiratory rate 16 /min Mbanefo OJUKWU [facility] 02-26-2024 19:00-0400 Respiratory rate 20 /min Mbanefo OJUKWU [facility] 02-26-2024 17:35-0400 gluc Allison OJONAHKWU [facility] 02-26-2024 17:30-0400 Heart rate 78 /min Allison OCAITLINWU [facility] 02-10-2024 15:35-0400 Blood Pressure Location Yaniv NATARAJAN [facility] 02-10-2024 15:35-0400 Diastolic blood pressure 62 mm[Hg] Yaniv NATARAJAN [facility] 02-10-2024 15:35-0400 Heart rate 78 /min Yaniv NATARAJAN [facility] 02-10-2024 15:35-0400 Respiratory rate 16 /min Yaniv NATARAJAN [facility] 02-10-2024 15:35-0400 Systolic blood pressure 144 mm[Hg] Yaniv NATARAJAN [facility] 02-03-2024 15:29-0400 Body height 149.86 cm MD Stefan Best Work Phone: [facility] 02-03-2024 15:29-0400 Body mass index (BMI) [Ratio] 33.3 kg/m2 MD Stefan Best Work Phone: [facility] 02-03-2024 15:29-0400 Body weight 74.84 kg MD Stefan Best Work Phone: [facility] 02-03-2024 15:29-0400 Diastolic blood pressure 75 mm[Hg] MD Stefan Best Work Phone: [facility] 02-03-2024 15:29-0400 Heart rate 72 /min MD Stefan Best Work Phone: [facility] 02-03-2024 15:29-0400 Systolic blood pressure 132 mm[Hg] MD Stefan Best Work Phone: [facility] 01-25-2024 12:00-0400 Body temperature 98.6 [degF] MD Stefan Best Work Phone: [facility] 01-25-2024 12:00-0400 Diastolic blood pressure 70 mm[Hg] MD Stefan Best Work Phone: [facility] 01-25-2024 12:00-0400 Heart rate 80 /min MD Stefan Best Work Phone: [facility] 01-25-2024 12:00-0400 Respiratory rate 18 /min MD Stefan Best Work Phone: [facility] 01-25-2024 12:00-0400 SaO2% (BldA) [Mass fraction] 92 % MD Stefan Best Work Phone: [facility] 01-25-2024 12:00-0400 Systolic blood pressure 135 mm[Hg] MD Stefan Best Work Phone: [facility] 01-25-2024 05:31-0400 Body weight 80 kg MD Stefan Best Work Phone: [facility] 01-24-2024 12:17-0400 Inhaled oxygen flow rate 2 L/min MD Stefan Best Work Phone: [facility] 01-23-2024 16:29-0400 Body height 149.86 cm MD Stefan Best Work Phone: [facility] 01-23-2024 16:29-0400 Body mass index (BMI) [Ratio] 34.5 kg/m2 MD Stefan Best Work Phone: [facility] 01-12-2024 16:11-0400 Body height 149.86 cm MD Stefan Best Work Phone: [facility] 01-12-2024 16:11-0400 Body mass index (BMI) [Ratio] 33.3 kg/m2 MD Stefan Best Work Phone: [facility] 01-12-2024 16:11-0400 Body temperature 96.4 [degF] MD Stefan Best Work Phone: [facility] 01-12-2024 16:11-0400 Body weight 74.84 kg MD Stefan Best Work Phone: [facility] 01-12-2024 16:11-0400 Diastolic blood pressure 80 mm[Hg] MD Stefan Best Work Phone: [facility] 01-12-2024 16:11-0400 Heart rate 82 /min MD Stefan Best Work Phone: [facility] 01-12-2024 16:11-0400 Respiratory rate 16 /min MD Stefan Best Work Phone: [facility] 01-12-2024 16:11-0400 SaO2% (BldA) [Mass fraction] 97 % MD Stefan Best Work Phone: [facility] 01-12-2024 16:11-0400 Systolic blood pressure 149 mm[Hg] MD Stefan Best Work Phone: [facility] 12-11-2023 15:50-0400 Body height 149.86 cm MD Stefan Best Work Phone: [facility] 12-11-2023 15:50-0400 Body mass index (BMI) [Ratio] 33.7 kg/m2 MD Stefan Best Work Phone: [facility] 12-11-2023 15:50-0400 Body weight 75.74 kg MD Stefan Best Work Phone: [facility] 12-11-2023 15:50-0400 Diastolic blood pressure 81 mm[Hg] MD Stefan Best Work Phone: [facility] 12-11-2023 15:50-0400 Heart rate 87 /min MD Stefan Best Work Phone: [facility] 12-11-2023 15:50-0400 Systolic blood pressure 167 mm[Hg] MD Stefan Best Work Phone: [facility] 11-27-2023 13:56-0400 Body height 149.86 cm MD Stefan Best Work Phone: [facility] 11-27-2023 13:56-0400 Body mass index (BMI) [Ratio] 33.9 kg/m2 MD Stefan Best Work Phone: [facility] 11-27-2023 13:56-0400 Body weight 76.2 kg MD Stefan Best Work Phone: [facility] 11-27-2023 13:56-0400 Diastolic blood pressure 81 mm[Hg] MD Stefan Best Work Phone: [facility] 11-27-2023 13:56-0400 Heart rate 76 /min MD Stefan Best Work Phone: [facility] 11-27-2023 13:56-0400 Systolic blood pressure 166 mm[Hg] MD Stefan Best Work Phone: [facility] 10-14-2023 13:33-0400 Diastolic blood pressure 68 mm[Hg] Margie [address] [place] [address] 10-14-2023 13:33-0400 Heart rate 78 /min [address] 10-14-2023 13:33-0400 Systolic blood pressure 108 mm[Hg] Margie 1 [facility] 09-17-2023 13:07-0500 Body height 149.9 cm Shahrzad Morales MD Work Phone: [facility] 09-17-2023 13:07-0500 Body mass index (BMI) [Ratio] 33.33 kg/m2 Shahrzad Morales MD Work Phone: [facility] 09-17-2023 13:07-0500 Body weight 74.84 kg Shahrzad Morales MD Work Phone: [facility] 09-17-2023 13:07-0500 Diastolic blood pressure 70 mm[Hg] Shahrzad Morales MD Work Phone: [facility] 09-17-2023 13:07-0500 Heart rate 84 /min Shahrzad Morales MD Work Phone: [facility] 09-17-2023 13:07-0500 Systolic blood pressure 116 mm[Hg] Shahrzad Morales MD Work Phone: [facility] 09-09-2023 15:18-0500 Body height 149.86 cm [facility] 09-09-2023 15:18-0500 Body mass index (BMI) [Ratio] 33.3 kg/m2 [facility] 09-09-2023 15:18-0500 Body weight 74.84 kg [facility] 09-09-2023 15:18-0500 Diastolic blood pressure 74 mm[Hg] [facility] 09-09-2023 15:18-0500 Heart rate 86 /min [facility] 09-09-2023 15:18-0500 Systolic blood pressure 117 mm[Hg] [facility] 08-13-2023 13:00-0500 Body height Da Lozano II Other [employer] [facility] Other 08-13-2023 13:00-0500 Body height 149.86 cm [facility] 11-12-2022 15:30-0400 Body height Ross Colmenares Other [employer] Other 11-12-2022 15:30-0400 Body mass index (BMI) [Ratio] 33.32 kg/m2 Ross Colmenares Other [employer] Other 11-12-2022 15:30-0400 Body weight 74.84 kg Ross Colmenares Other [employer] Other 07-25-2022 15:55-0500 Body height 149.86 cm Li Lee Work Phone: [facility]Ds[facility] [place] 250 DO Work Phone: 07-25-2022 15:55-0500 Body mass index (BMI) [Ratio] 34.94 kg/m2 Li Lee Work Phone: [facility]Xofmqxwhwx-Mkgnhv [place] 250 DO Work Phone: 07-25-2022 15:55-0500 Body surface area Derived from formula 1.73 m2 Li Lee Work Phone: [place]Hoexqtgcqg-Obbwfn [place] 250 DO Work Phone: 07-25-2022 15:55-0500 Body weight 78.47 kg Li Lee Work Phone: [facility]Tyjipcekcx[facility]Lhny[facility] [place] 250 DO Work Phone: 07-25-2022 15:55-0500 Diastolic blood pressure 80 mm[Hg] Li Lee Work Phone: [facility]Mtcbxemwca-Iyqdll [place] [address] DO Work Phone: 07-25-2022 15:55-0500 Heart rate 66 /min Li Lee Work Phone: [facility]Grkltqlboc-Hpntsn [place] 250 DO Work Phone: 07-25-2022 15:55-0500 Systolic blood pressure 120 mm[Hg] Li Lee Work Phone: [facility] [place] 250 DO Work Phone: 11-02-2021 13:16-0400 Body height 149.86 cm Li Lee Work Phone: [facility] 250 DO Work Phone: 11-02-2021 13:16-0400 Body mass index (BMI) [Ratio] 34.54 kg/m2 Li Lee Work Phone: [facility] 250 DO Work Phone: 11-02-2021 13:16-0400 Body surface area Derived from formula 1.73 m2 Li Lee Work Phone: [facility] 250 DO Work Phone: 11-02-2021 13:16-0400 Body weight 77.57 kg Li Lee Work Phone: [facility] 250 DO Work Phone: 11-02-2021 13:16-0400 Diastolic blood pressure 80 mm[Hg] Li Lee Work Phone: [facility] 250 DO Work Phone: 11-02-2021 13:16-0400 Heart rate 66 /min Li Lee Work Phone: [facility] 250 DO Work Phone: 11-02-2021 13:16-0400 Systolic blood pressure 130 mm[Hg] Li Lee Work Phone: [facility] 250 DO Work Phone: Encounters Encounter Date Encounter Type Care Provider Facility Start: 04-17-2025 End: 04-21-2025 Clinisync Result Encounter Nestor Tyler MD Work Phone: [facility] External Department Unsolicited Start: 04-17-2025 End: 04-21-2025 Clinisync Result Encounter Nestor Tyler MD Work Phone: [facility] External Department Unsolicited Start: 04-11-2025 End: 04-12-2025 ambulatory Stefan Best MD Work Phone: [facility] Work Phone: Start: 04-11-2025 End: 04-11-2025 Robby Artis DO -[facility] Start: 04-11-2025 ambulatory Yaniv Mirian [facility] Facility :[id number] Start: 04-07-2025 End: 04-09-2025 Evaluation and management of inpatient Stefan Best MD Work Phone: [facility] Work Phone: Start: 04-07-2025 End: 04-09-2025 Mateo Schaeffer MD -[facility] Work Phone: Start: 04-06-2025 End: 04-06-2025 ambulatory Stefan Best MD Work Phone: [facility] Work Phone: Start: 04-06-2025 End: 04-06-2025 Patient encounter procedure Da Artis [facility] -[facility] [facility] Work Phone: Start: 04-06-2025 End: 04-06-2025 Da Artis MD -[facility] Work Phone: Start: 04-04-2025 Non-patient / Non-visit Gardenia Montero [facility] -[facility] Work Phone: Start: 04-04-2025 Gardenia Castellanos [facility] Work Phone: Start: 03-29-2025 Non-patient / Non-visit Cedric Soliman MD -[facility] Work Phone: Start: 03-29-2025 Farhat Soliman MD -[facility] Work Phone: Start: 03-22-2025 Non-patient / Non-visit Mindy ro [facility] -[facility] Work Phone: Start: 03-22-2025 Mindy De Jesus [facility] Work Phone: Start: 03-22-2025 End: 04-04-2025 Evaluation and management of inpatient Stefan Best Facility:[facility] Start: 03-21-2025 End: 03-22-2025 ambulatory Earnest Ferrari Facility:[facility] Start: 03-21-2025 Non-patient / Non-visit Da Artis MD -[facility] Work Phone: Start: 03-21-2025 Farhat Soliman MD -[facility] Work Phone: Start: 03-11-2025 End: 03-11-2025 ambulatory Stefan Best MD Work Phone: [facility] Work Phone: Start: 03-11-2025 End: 03-11-2025 Patient encounter procedure Da Artis MD -[facility] Work Phone: Start: 03-11-2025 End: 03-11-2025 Da Artis MD -[facility] Work Phone: Start: 03-09-2025 Registered Recurring Da Artis MD -Physical Therapy [facility] [place] Start: 03-09-2025 Encounter for other preprocedural examination Da Lozano [facility] Start: 03-09-2025 End: 03-09-2025 Patient encounter procedure Da Artis MD -[facility] Start: 03-09-2025 End: 03-09-2025 Da Artis MD -Physical Therapy B [place] Start: 03-09-2025 End: 03-09-2025 ambulatory Stefan Best MD Work Phone: [facility] Work Phone: Start: 03-09-2025 End: 03-09-2025 ambulatory Stefan Best MD Work Phone: [facility] Work Phone: Start: 03-09-2025 End: 03-09-2025 Patient encounter procedure Da Artis MD -[facility] Work Phone: Start: 03-09-2025 End: 03-09-2025 Da Artis MD -[facility] Work Phone: Start: 03-03-2025 End: 03-03-2025 Patient encounter procedure Da Artis MD -Pre-Surgical Testing Work Phone: Start: 03-03-2025 End: 03-03-2025 Da Artis MD -Pre-Surgical Testi ng Work Phone: Start: 03-03-2025 End: 03-03-2025 ambulatory Stefan Best MD Work Phone: [facility] Work Phone: Start: 03-03-2025 Encounter for preprocedural laboratory examination aD Lozano [facility] Start: 02-08-2025 End: 02-08-2025 ambulatory Stefan Best MD Work Phone: [facility] Work Phone: Start: 02-08-2025 End: 02-08-2025 Patient encounter procedure Leroy Ashby MD -[facility] Work Phone: Start: 02-08-2025 End: 02-08-2025 Leroy Ashby MD -[facility] Work Phone: Start: 02-07-2025 Non-patient / Non-visit Leroy Ashby MD -[facility] Work Phone: Start: 02-07-2025 Leroy Ashby MD -[facility] Work Phone: Start: 01-31-2025 End: 01-31-2025 ambulatory Stefan Best MD Work Phone: [facility] Work Phone: Start: 01-31-2025 End: 01-31-2025 Patient encounter procedure Stefan Best MD -[facility] Work Phone: Start: 01-31-2025 End: 01-31-2025 Preprocedural examination done Stefan Best MD [facility] Start: 01-31-2025 End: 01-31-2025 Stefan Best MD -[facility] Work Phone: Start: 01-25-2025 Non-patient / Non-visit Da Artis MD -[facility] Work Phone: Start: 01-25-2025 Da Artis MD -[facility] Work Phone: Start: 01-11-2025 End: 01-11-2025 ambulatory Stefan Best MD Work Phone: [facility] Work Phone: Start: 01-11-2025 End: 01-11-2025 Patient encounter procedure Stefan Best MD -[facility] Work Phone: Start: 01-11-2025 End: 01-11-2025 Stefan Best MD -[facility] Work Phone: Start: 11-15-2024 End: 11-15-2024 Departed Referred Stefan Best MD Work Phone: [facility] Work Phone: Start: 11-15-2024 End: 11-15-2024 ambulatory Stefan Best MD Work Phone: [facility] Work Phone: Start: 11-15-2024 End: 11-15-2024 Patient encounter procedure Stefan Best MD Work Phone: [facility] Work Phone: Start: 10-22-2024 End: 10-22-2024 Admission to same day surgery center Stefan Best MD Work Phone: [facility] Start: 10-22-2024 End: 10-22-2024 ambulatory Stefan Best MD Work Phone: [facility] Work Phone: Start: 10-22-2024 End: 10-22-2024 ambulatory Yaniv NATARAJAN Facility:[id number] Start: 10-04-2024 End: 10-04-2024 ambulatory Stefan Best MD Work Phone: [facility] Work Phone: Start: 10-04-2024 End: 10-04-2024 Patient encounter procedure Stefan Best MD Work Phone: [facility] Physician [facility] Work Phone: Start: 09-27-2024 Non-patient / Non-visit Da Lozano MD Work Phone: [facility] Work Phone: Start: 09-27-2024 Non-patient / Non-visit Da Lozano MD Work Phone: [facility] Work Phone: Start: 09-26-2024 End: 09-26-2024 ambulatory Isiah Mata Facility:[facility] Start: 09-26-2024 Non-patient / Non-visit Da Lozano MD Work Phone: 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: [facility] Comment on above: CAD, multiple vessel (Primary Dx); Occlusion and stenosis of right carotid artery; Ischemic cardiomyopathy; Primary hypertension; Mixed hyperlipidemia; Type 2 diabetes mellitus without complication, with long-term current use of insulin (Multi); BMI 33.0-33.9,adult; Chronic kidney disease, stage 3b (Multi); Bruit of right carotid artery; PVD (peripheral vascular disease) ([facility] Start: 08-03-2024 End: 08-03-2024 ambulatory Stefan Best MD Work Phone: [facility] Work Phone: Start: 08-03-2024 End: 08-03-2024 Patient encounter procedure Stefan Best MD Work Phone: [facility] Physician [facility] Work Phone: Start: 07-15-2024 End: 07-15-2024 Patient encounter procedure Stefan Best MD Work Phone: [facility] Work Phone: Start: 07-15-2024 End: 07-15-2024 ambulatory Stefan Best MD Work Phone: [facility] Work Phone: Start: 07-12-2024 End: 07-12-2024 ambulatory Stefan Best MD Work Phone: [facility] Work Phone: Start: 07-12-2024 End: 07-12-2024 Departed Referred Stefan Best MD Work Phone: [facility] Start: 07-01-2024 End: 07-01-2024 Patient encounter procedure Stefan Best MD Work Phone: [facility] Physician [facility] Work Phone: Start: 06-28-2024 End: 06-28-2024 Patient encounter procedure Stefan Best MD Work Phone: [facility] Physician [facility] Work Phone: Start: 06-28-2024 End: 06-28-2024 ambulatory Da Lozano II Facility:[facility] Start: 06-24-2024 End: 06-24-2024 Patient encounter procedure Stefan Best MD Work Phone: [facility] Work Phone: Start: 06-24-2024 End: 06-24-2024 ambulatory Da Harrisle II Facility:[facility] Start: 2024 End: 2024 Admission to same day surgery center Stefan Best MD Work Phone: [facility] Start: 2024 End: 2024 ambulatory Stefan Best Facility:[facility] Start: 2024 End: 2024 ambulatory Yaniv NATARAJAN Facility:CD:[id number] Start: 05-25-2024 End: 05-25-2024 Patient encounter procedure Stefan Best MD Work Phone: [facility] Physician [facility] Work Phone: Start: 05-25-2024 End: 05-25-2024 ambulatory Stefan Best MD Work Phone: [facility] Work Phone: Start: 05-25-2024 End: 05-25-2024 Departed Referred Stefan Best MD Work Phone: [facility] Work Phone: Start: 05-21-2024 End: 05-21-2024 Patient encounter procedure Stefan Best MD Work Phone: [facility]-Pre-Surgical Testing Work Phone: Start: 05-21-2024 End: 05-21-2024 ambulatory Stefan Best MD Work Phone: [facility] Work Phone: Start: 05-20-2024 End: 05-20-2024 Encounter for other preprocedural examination Stefan Best MD Work Phone: [facility] Start: 05-20-2024 End: 05-20-2024 Patient encounter procedure Stefan Best MD Work Phone: [facility] Physician [facility] Work Phone: Start: 05-14-2024 Non-patient / Non-visit Stefan Best MD Work Phone: [facility] Physician [facility] Work Phone: Start: 05-14-2024 ambulatory Yaniv NATARAJAN Facility :[id number] Start: 04-07-2024 End: 04-07-2024 Departed Referred MD Stefan Best Work Phone: [facility] Work Phone: Start: 04-07-2024 End: 04-07-2024 ambulatory MD Stefan Best Work Phone: [facility] Work Phone: Start: 04-07-2024 End: 04-07-2024 Patient encounter procedure MD Stefan Best Work Phone: [facility] Physician [facility] Work Phone: Start: 03-22-2024 End: 03-22-2024 ambulatory MD Stefan Best Work Phone: [facility] Work Phone: Start: 03-22-2024 End: 03-22-2024 Patient encounter procedure MD Stefan Best Work Phone: [facility] Work Phone: Start: 03-19-2024 Non-patient / Non-visit MD Sulema Best Work Phone: [facility] Work Phone: Start: 03-17-2024 Non-patient / Non-visit MD Sulema Best Work Phone: [facility] Work Phone: Start: 03-05-2024 End: 03-05-2024 ambulatory MD Stefan Best Work Phone: [facility] Work Phone: Start: 03-05-2024 End: 03-05-2024 Patient encounter procedure MD Stefan Best Work Phone: [facility] Physician [facility] Work Phone: Start: 02-26-2024 ambulatory Damian RUSS Facility:[facility] Start: 02-26-2024 Emergency department patient visit Baljit Hawkins Facility:[facility] [place] Start: 02-26-2024 End: 02-29-2024 Evaluation and management of inpatient Allison PARKKWDesi Facility:[facility] [place] Start: 02-10-2024 End: 02-10-2024 ambulatory Yaniv NATARAJAN Facility:[facility] Start: 02-10-2024 End: 02-10-2024 Patient encounter procedure Yaniv NATARAJAN [facility] Start: 02-03-2024 End: 02-03-2024 ambulatory MD Stefan Best Work Phone: [facility] Work Phone: Start: 02-03-2024 End: 02-03-2024 Patient encounter procedure MD Stefan Best Work Phone: [facility] Work Phone: Start: 01-26-2024 ambulatory BLOOD DONOR RECRUITER Maxine Llanes Facilit y: [facility] Start: 01-23-2024 Non-patient / Non-visit MD Sulema Best Work Phone: [facility] Physician [facility] Work Phone: Start: 01-23-2024 End: 01-23-2024 ambulatory Yaniv NATARAJAN Facility:[id number] Start: 01-22-2024 End: 01-25-2024 Evaluation and management of inpatient MD Stefan Best Work Phone: [facility] [place] [facility] Work Phone: Start: 01-12-2024 End: 01-12-2024 ambulatory MD Stefan Best Work Phone: [facility] Work Phone: Start: 01-12-2024 End: 01-12-2024 Patient encounter procedure MD Stefan Best Work Phone: [facility] Work Phone: Start: 12-11-2023 End: 12-11-2023 ambulatory MD Stefan Best Work Phone: [facility] Work Phone: Start: 12-11-2023 End: 12-11-2023 Patient encounter procedure MD Stefan Best Work Phone: [facility] Physician [facility] Work Phone: Start: 12-06-2023 Non-patient / Non-visit MD Sulema Best Work Phone: [facility] Work Phone: Start: 12-02-2023 End: 12-02-2023 ambulatory MD Stefan Best Work Phone: [facility] Work Phone: Start: 12-02-2023 End: 12-02-2023 Patient encounter procedure MD Stefan Best Work Phone: [facility] Start: 11-27-2023 Patient encounter status MD Carlo Best Work Phone: [facility] Start: 11-27-2023 Preprocedural examination done Stefan Best MD Work Phone: [facility] Start: 11-27-2023 End: 11-27-2023 Patient encounter procedure MD Stefan Best Work Phone: [facility] Work Phone: Start: 11-22-2023 Non-patient / Non-visit MD Sulema Best Work Phone: [facility] Work Phone: Start: 11-19-2023 End: 11-19-2023 ambulatory BLOOD DONOR RECRUITER Maxine Llanes Facility:[facility] Start: 10-23-2023 End: 10-23-2023 ambulatory [facility] Work Phone: Start: 10-23-2023 End: 10-23-2023 Patient encounter procedure [facility] Phys[facility] Work Phone: Start: 10-14-2023 End: 10-14-2023 Subsequent hospital visit by physician Margie Juárez Stress Room 1 [facility] Comment on above: CAD, multiple vessel ; S/P CABG x 3; Ischemic cardiomyopathy; Occlusion and stenosis of right carotid artery; Shortness of breath Start: 10-14-2023 End: 10-14-2023 ambulatory SHAHRZAD MORALES [facility] Start: 09-17-2023 ambulatory BLOOD DONOR RECRUITER Maxine L Shraddha Facil ity:[facility] Start: 09-17-2023 End: 09-17-2023 Patient encounter procedure [facility] Work Phone: Start: 09-17-2023 End: 09-17-2023 Office outpatient visit 25 minutes Shahrzad Morales MD Work Phone: [facility] Comment on above: CAD, multiple vessel (Primary Dx); S/P CABG x 3; History of angioplasty; Primary hypertension; Ischemic cardiomyopathy; Mixed hyperlipidemia; BMI 32.0-32.9,adult; Former smoker; Occlusion and stenosis of right carotid artery; Shortness of breath Start: 09-09-2023 End: 09-09-2023 Patient encounter procedure [facility] Work Phone: Start: 09-08-2023 End: 09-08-2023 ambulatory BLOOD DONOR RECRUITER Maxine L Shraddha Facility:[facility]ue Start: 08-20-2023 End: 08-20-2023 ambulatory BLOOD DONOR RECRUITER Maxine L Shraddha Facility:[facility] [place] [place] Start: 08-13-2023 End: 08-13-2023 ambulatory Da Lozano II Other [employer] Other Start: 08-13-2023 Office outpatient vi sit 15 minutes Da Lozano II [facility] Start: 08-13-2023 End: 08-13-2023 Patient encounter procedure [facility] Physician [facility]- Start: 05-21-2023 End: 05-21-2023 ambulatory BLOOD DONOR RECRUITER Maxine L Shraddha Facility:[facility] [place] [place] Start: 04-23-2023 (Procedure) Raine Colmenares [facility] Start: 04-23-2023 End: 04-23-2023 ambulatory Ross Colmenares Other [employer] Other Start: 04-07-2023 End: 04-07-2023 ambulatory Ross Colmenares Other [employer] Other Start: 04-07-2023 Telephone encounter Ross Colmenares [facility] [place] [facility] Start: 03-27-2023 End: 03-27-2023 ambulatory Da Max II Other [employer] Other Start: 03-27-2023 Office outpatient vi sit 15 minutes Da Max II [facility] [place] [facility] Start: 03-25-2023 ambulatory BLOOD DONOR RECRUITER Maxine L Shraddha Facil ity[facility] Start: 03-05-2023 End: 03-05-2023 ambulatory BLOOD DONOR RECRUITER Maxine L Shraddha Facility:[facility] Start: 02-10-2023 End: 02-10-2023 Lab Drop off Maxine L Shraddha [facility] Start: 12-25-2022 (Procedure) Raine Colmenares [facility] Start: 12-25-2022 End: 12-25-2022 ambulatory Ross Colmenares Other [employer] Other Start: 11-12-2022 End: 11-12-2022 ambulatory Ross Colmenares Other [employer] Other Start: 11-12-2022 Office outpatient ne w 45 minutes Ross Colmenares [facility] [place] Start: 11-11-2022 End: 11-11-2022 ambulatory MD Li Lee Work Phone: [facility] Work Phone: Start: 11-11-2022 End: 11-11-2022 Patient encounter procedure MD Li Lee Work Phone: [facility] [place] [facility] Start: 10-09-2022 Rx Renewal Li Lee Work Phone: [facility] 250 DO Work Phone: Start: 07-25-2022 Office outpatient vi sit 25 minutes Li Lee Work Phone: [facility] 250 DO Work Phone: Start: 07-25-2022 ambulatory Shahrzad Morales II Facility: Start: 07-10-2022 Rx Renewal Li Lee Work Phone: [facility] 250 DO Work Phone: Start: 01-30-2022 End: 01-31-[address] LI LEE Facility:[facility] Start: 12-19-2021 Encounter for genera l adult medical examination without abnormal findings DR SHAHRZAD MORALES [facility] Start: 12-13-2021 End: 12-14-[address] LI LEE Facility:[facility] Start: 12-13-2021 End: 12-14-2021 Encounter for general adult medical examination without abnormal findings DR LI LEE Facility:[facility] Start: 11-02-2021 Office outpatient vi sit 25 minutes Li Lee Work Phone: [facility] 250 DO Work Phone: Start: 11-02-[address] LI LEE Facilit y:[facility] Start: 10-18-2021 End: 01-19-[address] LI LEE Facility:[facility] Start: 10-15-2021 End: 10-16-[address] LI LEE Facility:[facility] Start: 10-11-2021 Rx Renewal Li Lee Work Phone: [facility] 250 DO Work Phone: Start: 09-10-2021 Rx Renewal Li E Lee Work Phone: [facility] 250 DO Work Phone: Start: 08-03-2021 AUDIT Li Lee Work Phone: [facility] 250 DO Work Phone: Start: 11-20-2017 Ambulatory CHAO KIRNUS Facility :[id number] Start: 09-04-2017 Ambulatory CHAO KIRNUS Facility :[id number] Start: 04-07-2017 End: 04-08-2017 Ambulatory DEFAULT PHYSICIAN Facility:[facility] Patient encounter status Li white Work Phone: [facility] 250 DO Work Phone: Procedures Date Procedure Procedure Detail Performing Clinician Start: 04-17-2025 [facility] CBC WITH PLATEL ET NO DIFFERENTIAL Nestor Tyler MD Work Phone: Start: 03-09-2025 Plain X-ray of left hip Steafn Best MD Work Phone: Start: 03-03-2025 Urine culture Stefan acevedo MD Work Phone: Start: 11-15-2024 Urine culture Stefan acevedo MD Work Phone: Start: 10-22-2024 Cystoscopy Stefan garcia MD Work Phone: Start: 10-22-2024 Supine abdominal X-ray Stefan Best MD Work Phone: Start: 10-22-2024 Supine abdominal X-ray Stefan Best MD Work Phone: Start: 07-15-2024 Urine culture Stefan acevedo MD Work Phone: Start: 06-28-2024 Plain X-ray of left hip Stefan Best MD Work Phone: Start: 06-24-2024 Urine culture Stefan acevedo MD Work Phone: Start: 06-24-2024 Antibody screen Stefan Best Comment on above: Order Comment: Date of Surgery: [id number] Result Comment: PERF ORMED BY:[facility] [place] [id number] MEDICAL DIRECTORRADHA DURAN M.D. Start: 2024 Cystoscopy [...] tst xers&/or rx cont ecg trcg only Shahrzad Morales MD Work Phone: Start: 07-08-2023 History of coronary artery bypass grafting S/P CABG x 3 Shahrzad Morales MD Work Phone: Start: 06-16-2019 Lipid 1996 panel - S [place] or Plasma Shahrzad Morales MD Work Phone: Aortoiliofemoral vas cular bypass Li Lee Work Phone: CABG Li Lee Work Phone: Cataract surgery Li hartley Work Phone: Cataract surgery Maxine Llanes section Li hartley Work Phone: Comment on above: x3; section Maxine Llanes Comment on above: Outside Source Comme nt: Comment on above: x3; History of coronary artery bypass grafting S/P CABG x 3 Li Lee Work Phone: History of coronary artery bypass grafting Maxine Llanes History of coronary artery bypass grafting S/P CABG x 3 Shahrzad Morales MD Work Phone: History of coronary artery bypass grafting S/P CABG x 3 Margie 1 History of coronary artery bypass grafting History of coronary artery bypass graft MD Stefan Best Work Phone: Plan of Treatment Date Care Activity Detail Author Start: 08-11-2025 End: 08-11-2025 Patient encounter procedure 08/11/2025 11:10 AM EST Office Visit [place] [id number] [place] [address] Shahrzad Cobb, [address] [place] [address] [facility] Start: 07-25-2025 End: 07-25-2025 Patient encounter procedure 07/25/2025 9:45 AM EST Appointment [place] [id number] [place] [id number] [facility] Start: 04-11-2025 [facility] Start: 04-11-2025 Urine culture [facility] Start: 04-09-2025 [facility] Start: 04-08-2025 Referral to feed mill operator [facility] Start: 04-08-2025 Hospital admission [facility] Start: 04-04-2025 [facility] Start: 03-22-2025 Hospital admission [facility] Start: 03-22-2025 Referral to clinical mule developer [facility] Start: 03-22-2025 [facility] Start: 03-21-2025 Hospital admission [facility] Start: 03-21-2025 Referral to clinical mule developer [facility] Start: 03-21-2025 Referral to rehabilitation physician [facility] Start: 03-14-2025 Influenza vaccination Influenza Vacc ine (#1) [facility] Start: 03-09-2025 Plain X-ray of left hip XR hip LT min 2V(w/wo pelvis)* [facility] Start: 03-09-2025 XR Hip - left 2 Views [facility] Start: 03-03-2025 Urine culture [facility] Start: 03-03-2025 [facility] Start: 03-03-2025 Bacteria identified in Urine by Culture Urine Culture [facility] Start: 11-15-2024 Urine culture [facility] Start: 11-15-2024 Bacteria identified in Urine by Culture Urine Culture [facility] Start: 10-22-2024 [facility] Start: 10-22-2024 Supine abdominal X-ray [facility] Start: 09-26-2024 Urine culture [facility] Start: 08-11-2024 End: 08-11-2026 US.doppler Carotid arteries - bilateral Vascular US Carotid Artery Duplex Bilateral Vascular Ultrasound Routine Bruit of right carotid artery Expected: 08/11/2024 (Approximate), Expires: 08/11/2026 [facility] Service Area Work Phone: Comment on above: Expected: 08/11/2024 (Approximate), Expires: 08/11/2026 Start: 07-15-2024 Bacteria identified in Urine by Culture Urine Culture [facility] Start: 07-15-2024 Urine culture [facility] Start: 07-12-2024 Total replacement of left hip joint OR Total Hip Arthro Anterior Approach (Left) [facility] Start: 06-09-2024 End: 06-09-2024 Patient encounter procedure 06/09/2024 11:30 AM EST Office Visit [facility] [address] [place] [address] Angela Braun, PLUG SORTER-RECORD MAKER [address] [place] [address] [facility] Start: 2024 End: 2024 [facility] Start: 05-25-2024 Bacteria identified in Urine by Culture Urine Culture [facility] Start: 05-25-2024 Urine culture [facility] Start: 04-07-2024 Bacteria identified in Urine by Culture [facility] Start: 03-14-2024 COVID-19 Vaccine () COVID-19 Vaccine () [facility] Start: 03-14-2024 Influenza vaccination [facility] Start: 01-27-2024 [facility] Start: 01-26-2024 [facility] Start: 01-25-2024 [facility] Start: 01-25-2024 [facility] Start: 01-22-2024 Hospital admission [facility] Start: 01-22-2024 Referral to building construction supervisor [facility] Start: 01-22-2024 Referral to urologist [facility] Start: 01-22-2024 [facility] Start: 01-22-2024 Dilation of Bilatera l Ureters, Via Natural or Artificial Opening Endoscopic Dilation of Bilateral Ureters, Via Natural or Artificial Opening Endoscopic [facility] Start: 01-22-2024 Fluoroscopy of Kidne ys, Ureters and Bladder using Low Osmolar Contrast Fluoroscopy of Kidneys, Ureters and Bladder using Low Osmolar Contrast [facility] Start: 12-12-2023 Patient referral [facility] Work Phone: Start: 12-02-2023 MRSA Culture MRSA Culture [facility] Start: 09-17-2023 End: 09-16-2025 NM Heart Perfusion W stress and W radionuclide IV Nuclear Stress Test Cardiac Nuclear Medicine Routine CAD, multiple vessel S/P CABG x 3 Ischemic cardiomyopathy Occlusion and stenosis of right carotid artery Shortness of breath Expected: 09/17/2023 (Approximate), Expires: 09/16/2025 [facility] Service Area Work Phone: Comment on above: Expected: 09/17/2023 (Approximate), Expires: 09/16/2025 Start: 07-23-2023 FUV, Provider: Shahrzad Morales, Status: Pen, Time: 3:40 PM FUV, Provider: Shahrzad Morales, Status: Pen, Time: 3:40 PM [facility] [place] 250 DO Work Phone: Start: 07-19-2023 Glaucoma screening Diabetes: R etinopathy Screening [facility] Start: 03-14-2023 COVID-19 Vaccine ( season) COVID-19 Vaccine ( season) [facility] Start: 03-14-2023 Influenza vaccination Influenza Vacc ine (#1) [facility] Start: 11-11-2022 X-ray of lumbar spin e, four views XR lumbar spine AP/LAT/FLX/EXT [facility] Start: 11-11-2022 Plain X-ray of left hip XR hip LT min 2V(w/wo pelvis)* [facility] Start: 11-11-2022 XR Hip - left 2 Views [facility] Start: 10-16-2022 Medicare Annual Well ness Visit Medicare Annual Wellness Visit (AWV) [facility] Start: 07-25-2022 FUV, Provider: Shahrzad Morales, Status: Pen, Time: 3:30 PM FUV, Provider: Shahrzad Morales, Status: Pen, Time: 3:30 PM -[facility] [place] 250 DO Work Phone: Start: 04-19-2022 FUV, Provider: Shahrzad Morales, Status: Pen, Time: 3:20 PM FUV, Provider: Shahrzad Morales, Status: Pen, Time: 3:20 PM [facility] 250 DO Work Phone: Start: 11-02-2021 FUV, Provider: Shahrzad Morales, Status: Pen, Time: 1:15 PM FUV, Provider: Shahrzad Morales, Status: Pen, Time: 1:15 PM [facility] 250 DO Work Phone: Start: 06-16-2020 Lipid panel Lipid Panel [facility] Start: 2020 RSV High Risk: (Elde rly (60+) or Population) (1 - 1-dose 75+ series) RSV High Risk: (Elderly (60+) or Population) (1 - 1-dose 75+ series) [facility] Start: 09-15-2019 Hemoglobin A1c measurement Diabetes: Hemoglobin A1C [facility] Start: 1995 Zoster Vaccines (1 of 2) Zoster Vacc alli (1 of 2) [facility] Start: 1967 DTaP/Tdap/Td Vaccine s (1 - Tdap) DTaP/Tdap/Td Vaccines (1 - Tdap) [facility] Start: 1964 Urine screening for protein Diabetes: Urine Protein Screening [facility] Start: 1963 Hepatitis C screening Hepatitis C Sc reening [facility] Start: 1955 Diabetic foot examination Diabetes: Foot Exam [facility] Start: 1945 Medicare Annual Well ness Visit Medicare Annual Wellness Visit (AWV) [facility] Start: 1945 Screening for osteoporosis Bone Density Scan [facility] Start: 1945 Urine screening for protein Diabetes: Urine Protein Screening [facility] Bacteria identified in Urine by Culture [facility] Cotinine [Mass/volum e] in Serum or Plasma [facility] Immunofixation for Urine Fir [facility] Nicotine [Mass/volum e] in Serum or Plasma [facility] Patient Education [facility] Work Phone: Patient referral [place] Work Phone: Renal function 2000 panel - Serum or Plasma [facility] Renal function 2000 panel - Serum or Plasma [facility] Renal function 2000 panel - Serum or Plasma [facility] Renal function 1999 panel - Serum or Plasma [facility] Urine culture [facility] US Kidney - bilateral [facility] Immunizations Immunization Date Immunization Notes Care Provider Fa kasandra 07-03-2022 Fluad Quadrivalent 0 .5 ML Intramuscular Prefilled Syringe Li Lee Work Phone: [facility] elias 250 DO Work Phone: 07-03-2022 influenza virus vacc ine, unspecified formulation Maxine Llanes [facility] 07-03-2022 influenza, injectabl e, quadrivalent, contains preservative Shahrzad Morales MD Work Phone: [facility] Work Phone: 06-17-2022 Pfizer COVID-19 Vac Bivalent 30 MCG/0.3ML Intramuscular Suspension Li Lee Work Phone: [facility] Comment on above: Result Comment: 2022: [id number] 04-13-2021 Pfizer-BioNTech COVI D-19 Vacc 30 MCG/0.3ML Intramuscular Suspension Li Lee Work Phone: [facility] Comment on above: Result Comment: 2022: [id number] 08-30-2020 Pfizer-BioNTech COVI D-19 Vacc 30 MCG/0.3ML Intramuscular Suspension Li Lee Work Phone: [facility] Comment on above: Result Comment: 2022: [id number] 08-09-2020 Pfizer-BioNTech COVI D-19 Vacc 30 MCG/0.3ML Intramuscular Suspension Li Lee Work Phone: [facility] Comment on above: Result Comment: 2022: [id number] 07-01-2019 influenza virus vacc ine, unspecified formulation Maxine Llanes [facility] 07-01-2019 influenza, injectabl e, quadrivalent, contains preservative Li Lee Work Phone: [facility] 250 DO Work Phone: 07-14-2018 influenza virus vacc ine, unspecified formulation Li Lee Work Phone: [facility] 04-16-2018 influenza virus vacc ine, unspecified formulation Maxine Shraddha [facility] 04-16-2018 pneumococcal polysaccharide vaccine, 23 valent Li Conley Rosa Work Phone: [facility] 04-13-2018 influenza virus vacc ine, unspecified formulation Li Ruizight Work Phone: [place] [address] DO Work Phone: 04-13-2018 pneumococcal conjuga te vaccine, 13 valent Li Conley Lee Work Phone: [place] [address] DO Work Phone: 05-16-2017 influenza virus vacc ine, unspecified formulation Maxine Shraddha [facility] 05-12-2017 influenza, high dose seasonal, preservative-free Li Conley Rosa Work Phone: [place] [address] DO Work Phone: 10-30-2016 pneumococcal conjuga te vaccine, 13 valent Li Ruizight Work Phone: [facility] 10-12-2016 pneumococcal polysaccharide vaccine, 23 valent Li uRizight Work Phone: [facility] 250 DO Work Phone: 07-14-2011 influenza virus vacc ine, unspecified formulation Li Ruizight Work Phone: [facility] 250 DO Work Phone: Payers Date Payer Category Payer Self-pay [id number] 2023 Medicare [id number] 2022 Medicare supplementa l policy (as second payer) AAR [id number] 2022 Unknown 2010 Medicare [id number]. [id number]. [id number] 2010 Medicare [id number] 2.16.840.1.255686.19 1959 Medicare [id number] 1959 Self-pay [id number] 1959 Unknown [id number] 1945 Unknown [id number] 2.16.840.1.629839.3.579. 2.593 1945 Unknown [id number] 2.16.840.1.200561.3.579. 2.593 1945 Unknown [id number] 2.16.840.1.608091.3.579. 2.593 1945 Unknown [id number] 2.16.840.1.957653.3.579. 2.593 1945 Unknown [id number] 2.16.840.1.992814.3.579. 2.593 1945 Unknown [id number] 2.16.840.1.152550.3.579. 2.356 1945 Unknown [id number] 2.16.840.1.384421.3.579. 2.356 1945 Unknown [id number] 2.16.840.1.681913.3.579. 2.727 1945 Unknown [id number] 2.16.840.1.377770.3.579. 2.72 1945 Unknown [id number] 2.16.840.1.931249.3.579. 2 1945 Unknown [id number] 2.16.840.1.855178.3.579. 2. 1945 Unknown [id number] 2.16.840.1.383613.3.579. 2 1945 Unknown [id number] 2.16.840.1.364326.3.579. 2. 1945 Unknown [id number] 2.16.840.1.306251.3.579. 2 1945 Unknown [id number] 2.16.840.1.139515.3.579. 2 1945 Unknown [id number] 2.16.840.1.041033.3.579. 2 1945 Unknown [id number] 2.16.840.1.953438.3.579. 2 1945 Unknown [id number] 2.16.840.1.948886.3.579. 2 1945 Unknown [id number] 2.16.840.1.385563.3.579. 2 1945 Unknown [id number] 2.16.840.1.426103.3.579. 2 1945 Unknown [id number] 2.16.840.1.885267.3.579. 2. 1945 Unknown [id number] 2.16.840.1.578492.3.579. 2. 1945 Unknown [id number] 2.16.840.1.449482.3.579. 2 1945 Unknown [id number] 2.16.840.1.787534.3.579. 2.727 1945 Unknown [id number] 2.16.840.1.848504.3.579. 2.727 1945 Unknown [id number] 2.16.840.1.607011.3.579. 2.72 1945 Unknown [id number] 2.16.840.1.977050.3.579. 2.72 1945 Unknown [id number] 2.16.840.1.488667.3.579. 2.1246 1945 Unknown [id number] 2.16.840.1.646994.3.579. 2.1245 1945 Unknown [id number] 2.16.840.1.455426.3.579. 2.1245 1945 Unknown [id number] 2.16.840.1.181989.3.579. 2.1245 1945 Unknown [id number] 2.16.840.1.576161.3.579. 2.6 1945 Unknown [id number] 2.16.840.1.078788.3.579. 2.1243 1945 Unknown [id number] 2.16.840.1.980728.3.579. 2. 1945 Unknown [id number] 2.16840.1.860216.3.579. 2. 1945 Unknown [id number] 2.16.840.1.051464.3.579. 2.72 1945 Unknown [id number] 2.16.840.1.469223.3.579. 2. 1945 Unknown [id number] 2.16.840.1.906609.3.579. 2.727 Medicare [id number] Medicare [id number] Unknown [id number] 2.16.840.1.053403.3.579. 2.531 Unknown [id number] 2.16.840.1.567933.3.579. 2.531 Unknown [id number] 2.16.840.1.571647.3.579. 2.531 Unknown [id number] 2.16.840.1.385706.3.579. 2.531 Unknown [id number] 2.16.840.1.528027.3.579. 2.531 Unknown [id number] 2.16.840.1.428559.3.579. 2.531 Unknown [id number] 2.16.840.1.893439.3.579. 2.531 Unknown [id number] 2.16.840.1.743814.3.579. 2.531 Unknown [id number] 2.16.840.1.090499.3.579. 2.531 Unknown [id number] 2.16.840.1.842952.3.579. 2.531 Unknown [id number] 2.16.840.1.706157.3.579. 2.531 Unknown [id number] 2.16.840.1.389064.3.579. 2.531 Unknown [id number] 2.16.840.1.505542.3.579. 2.531 Unknown [id number] 2.16.840.1.004194.3.579. 2.531 Unknown [id number] 2.16.840.1.993500.3.579. 2.531 Unknown [id number] 2.16.840.1.846197.3.579. 2.531 Unknown [id number] 2.16.840.1.710838.3.579. 2.531 Social History Date Type Detail Facility Start: 07-08-2023 End: 08-11-2024 Former smoker Former smoker [place] [address] DO Work Phone: Comment on above: Quit 17 years ago; Quit 25+ years ago; coffee occasionally soda, tea; Start: 08-06-2018 End: 04-08-2025 Tobacco smoking status NHIS Ex-smoker (finding) [facility] Comment on above: quit age 50 Start: 1945 Sex Assigned At Female [facility] Start: 07-08-2023 End: 08-11-2024 Sex Assigned At [facility] Tobacco smoking status Never Mina andrewJose Alejandro [facility] Comment on above: quit age 50 End: 07-14-1999 History of tobacco use Current smoker [facility] Work Phone: End: 07-14-1999 History of tobacco use Cigarette Smoker [facility] Work Phone: Start: 07-08-2023 End: 08-11-2024 Tobacco use and exposure Smokeless tobacco non-user [facility] Work Phone: Start: 09-17-2023 End: 08-11-2024 Alcohol intake Current drinker of alcohol (finding) [facility] Work Phone: Start: 07-08-2023 Alcohol Comment occasional [facility] Work Phone: Start: 1945 Sex Assigned At Not on file [facility] Work Phone: Start: 09-07-2023 End: 08-11-2024 Exposure to SARS-CoV-2 (event) Not sure [facility] Start: 08-13-2023 Tobacco smoking stat us SDIS Never smoked tobacco (finding) [facility] Start: 05-22-2024 End: 11-15-2024 Sex Female (finding) [facility] Start: 04-01-2025 End: 04-08-2025 SDOH Follow up SDOH Follow up [facility] Medical Equipment Procedure Code Equipment Code Equipment Origin al Text Equipment Identifier Dates Cystoscopy, with ureteral calculus manipulation and stent placement ()[id number] FDA Start: 01-23-2024 Cystoscopy, with ureteral calculus manipulation and stent placement ()[id number] FDA Start: 2024 Cystoscopy, with ureteral calculus manipulation and stent placement ()[id number] FDA Start: 10-22-2024 Cystoscopy, with ureteral calculus manipulation and stent placement ()[id number] FDA Start: 10-22-2024 Arthroplasty, hip, total, anterior approach ()[id number] FDA Start: 03-21-2025 Arthroplasty, hip, total, anterior approach ()[id number] FDA Start: 03-21-2025 Arthroplasty, hip, total, anterior approach ()[id number] FDA Start: 03-21-2025 Arthroplasty, hip, total, anterior approach ()[id number] FDA Start: 03-21-2025 Arthroplasty, hip, total, anterior approach ()[id number] FDA Start: 03-21-2025 Arthroplasty, hip, total, anterior approach ()[id number] FDA Start: 03-21-2025 Arthroplasty, hip, total, anterior approach ()[id number] FDA Start: 03-21-2025 AAA repair with graft GRAFT SUSAN SHIELD [id number] FDA Start: 07-20-2018 AAA repair with graft IR STENT S MART 9 X 40 120 CM FDA Start: 07-20-2018 AAA repair with graft GRAFT SUSAN SHIELD [id number] FDA Start: 07-20-2018 AAA repair with graft IR STENT S MART 9 X 40 120 CM FDA Start: 07-20-2018 AAA repair with graft GRAFT SUSAN SHIELD [id number] FDA Start: 07-20-2018 AAA repair with graft IR STENT S MART 9 X 40 120 CM FDA Start: 07-20-2018 AAA repair with graft GRAFT SUSAN SHIELD [id number] FDA Start: 07-20-2018 AAA repair with graft IR STENT S MART 9 X 40 120 CM FDA Start: 07-20-2018 AAA repair with graft GRAFT SUS[employer]IELD [id number] FDA Start: 07-20-2018 AAA repair with graft IR STENT S MART 9 X 40 120 CM FDA Start: 07-20-2018 AAA repair with graft GRAFT SUSAN SHIELD [id number] FDA Start: 07-20-2018 AAA repair with graft IR STENT S MART 9 X 40 120 CM FDA Start: 07-20-2018 AAA repair with graft GRAFT SUSAN SHIELD [id number] FDA Start: 07-20-2018 AAA repair with graft IR STENT S MART 9 X 40 120 CM FDA Start: 07-20-2018 AAA repair with graft GRAFT SUSAN SHIELD [id number] FDA Start: 07-20-2018 AAA repair with graft IR STENT S MART 9 X 40 120 CM FDA Start: 07-20-2018 AAA repair with graft GRAFT SUSAN [employer]IELD [id number] FDA Start: 07-20-2018 AAA repair with graft IR STENT S MART 9 X 40 120 CM FDA Start: 07-20-2018 AAA repair with graft GRA[employer] S[employer]IELD [id number] FDA Start: 07-20-2018 AAA repair with graft IR STENT S MART 9 X 40 120 CM FDA Start: 07-20-2018 AAA repair with graft GRA[employer]IELD [id number] FDA Start: 07-20-2018 AAA repair with graft IR STENT S MART 9 X 40 120 CM FDA Start: 07-20-2018 AAA repair with graft GRAFT SUSAN SHIELD [id number] FDA Start: 07-20-2018 AAA repair with graft IR STENT S MART 9 X 40 120 CM FDA Start: 07-20-2018 AAA repair with graft GRAFT SUSAN SHIELD [id number] FDA Start: 07-20-2018 AAA repair with graft IR STENT S MART 9 X 40 120 CM FDA Start: 07-20-2018 AAA repair with graft GRAFT SUS[employer] SHIELD [id number] FDA Start: 07-20-2018 AAA repair with graft IR STENT S MART 9 X 40 120 CM FDA Start: 07-20-2018 AAA repair with graft GRA[employer] S[employer]IELD [id number] FDA Start: 07-20-2018 AAA repair with graft IR STENT S MART 9 X 40 120 CM FDA Start: 07-20-2018 AAA repair with graft GRA[employer] S[employer]IELD [id number] FDA Start: 07-20-2018 AAA repair with graft IR STENT S MART 9 X 40 120 CM FDA Start: 07-20-2018 AAA repair with graft GRA[employer] S[employer]IELD [id number] FDA Start: 07-20-2018 AAA repair with graft IR STENT S MART 9 X 40 120 CM FDA Start: 07-20-2018 AAA repair with graft GRA[employer] S[employer]IELD [id number] FDA Start: 07-20-2018 AAA repair with graft IR STENT S MART 9 X 40 120 CM FDA Start: 07-20-2018 AAA repair with graft GRA[employer] S[employer]IELD [id number] FDA Start: 07-20-2018 AAA repair with graft IR STENT S MART 9 X 40 120 CM FDA Start: 07-20-2018 AAA repair with graft GRA[employer] S[employer]IELD [id number] FDA Start: 07-20-2018 AAA repair with graft IR STENT S MART 9 X 40 120 CM FDA Start: 07-20-2018 AAA repair with graft GRA[employer] S[employer]IELD [id number] FDA Start: 07-20-2018 AAA repair with graft IR STENT S MART 9 X 40 120 CM FDA Start: 07-20-2018 AAA repair with graft GRA[employer] S[employer] SHIELD [id number] FDA Start: 07-20-2018 AAA repair with graft IR STENT S MART 9 X 40 120 CM FDA Start: 07-20-2018 AAA repair with graft GRA[employer] S[employer] SHIELD [id number] FDA Start: 07-20-2018 AAA repair with graft IR STENT S MART 9 X 40 120 CM FDA Start: 07-20-2018 AAA repair with graft GRA[employer]IELD [id number] FDA Start: 07-20-2018 AAA repair with graft IR STENT S MART 9 X 40 120 CM FDA Start: 07-20-2018 AAA repair with graft GRA[employer]ELD [id number] FDA Start: 07-20-2018 AAA repair with graft IR STENT S MART 9 X 40 120 CM FDA Start: 07-20-2018 AAA repair with graft G[employer] [id number] FDA Start: 07-20-2018 AAA repair with graft IR STENT S MART 9 X 40 120 CM FDA Start: 07-20-2018 AAA repair with graft GRA[employer]ELD [id number] FDA Start: 07-20-2018 AAA repair with graft IR STENT S MART 9 X 40 120 CM FDA Start: 07-20-2018 AAA repair with graft GRA[employer]ELD [id number] FDA Start: 07-20-2018 AAA repair with graft IR STENT S MART 9 X 40 120 CM FDA Start: 07-20-2018 AAA repair with graft GRA[employer]ELD [id number] FDA Start: 07-20-2018 AAA repair with graft IR STENT S MART 9 X 40 120 CM FDA Start: 07-20-2018 AAA repair with graft G[employer] [id number] FDA Start: 07-20-2018 AAA repair with graft IR STENT S MART 9 X 40 120 CM FDA Start: 07-20-2018 AAA repair with graft GRA[employer] [id number] FDA Start: 07-20-2018 AAA repair with graft IR STENT S MART 9 X 40 120 CM FDA Start: 07-20-2018 AAA repair with graft G[employer] [id number] FDA Start: 07-20-2018 AAA repair with graft IR STENT S MART 9 X 40 120 CM FDA Start: 07-20-2018 AAA repair with graft FDA Sta rt: 07-20-2018 AAA repair with graft FDA Sta rt: 07-20-2018 AAA repair with graft FDA Sta rt: 07-20-2018 AAA repair with graft FDA Sta rt: 07-20-2018 CL STENT XIENCE ALP 2.25 X 15 FDA Start: 06-24-2017 CL STENT XIENCE ALP 2.5 X 38 FDA Start: 06-24-2017 CL STENT XIENCE ALP 3.0 X 18 FDA Start: 06-24-2017 STENT PALMAZ HCLOE E 7 X 24 [id number] FDA Start: [...] 02/10/23 11:29:00 EDT, Weight Dosing Start: 02-10-2023 [facility] DME Prescription, See [...] 7 X 24 135CM FDA Start: 09-11-2017 FDA Start: 06-24-2017 FDA Start: 06-24-2017 FDA Start: 06-24-2017 FDA Start: 09-11-2017 FDA Start: 06-24-2017 FDA Start: 06-24-2017 FDA Start: 06-24-2017 FDA Start: 09-11-2017 Goals Date Patient Goal Desired Activity /State Functional Status Date Assessment Result Facility 04-09-2025 Functional status Patient at Baseline [facility] Work Phone: 02-26-2024 Functional Status No [facility] 02-26-2024 Functional Status [facility] 02-10-2024 Functional Status N/A [facility] 01-25-2024 Functional status Patient at Baseline [facility] Work Phone: Mental Status Date Assessment Result Facility 04-09-2025 Cognitive function Patient at Baseline [facility] Work Phone: 01-25-2024 Cognitive function Cognitive Sta tus Patient at Baseline [facility] Work Phone: Clinical Notes 11-11-2016 to 04-08-2025 Note Date & Type Note Facility 04-08-2025 Consult note Note Date/Time April 08, 2025 3:46pm [facility] [address] [place] [address] Cardiology Consult Note Signed Patient: Lexi Tatum MR#: [id number] : 1945 Acct:[id number] Age/Sex: 79 / F Adm Date: 5 Loc: Room: [address] [place] [address] Type: ADM IN Attending Dr: Mateo Schaeffer MD Copies to: MD Stefan Gorman MD Rebekah M Farris, DO, GRIS Cobb DO~ Cardiology HPI History of Present Illness Consult Date: 04/08/25 Reason for Consult: CHF exacerbation, elevated troponin HPI: Ms. Tatum is a 79 year old female seen in cardiology consultation at request of hospitalist and in conjunction with Dr. Jett, second year of medical lab assistant; I agree with her evaluation, management, I have discussed and interviewed and examined the patient concurrently as well as reviewed echo at bedside this afternoon. Patient presents with past medical history of coronary artery disease with three-vessel CABG in November 2016 and subsequent vein graft failure to the RCA in June 2017 with PCI of the RCA x 2 drug-eluting stents, diabetes, hypertension, hyperlipidemia seen in consultation for CHF exacerbation. Patientunderwent recent total hip replacement and subsequently followed by home health nurse; she reports that for the last 5 days she has had shortness of breath. She did have a URI with some cough and congestion associated with the shortness of breath, but after her cough and congestion improved, she was still having shortness of breath for which her home health nurse was concerned for PE. She denies orthopnea, but does report some LE edema and increased SOB. She presented to the [place] [facility] and had a perfusion study that was low risk forPE, but she was found to have BNP of over 6500 and significant lower extremity edema. Her troponin was initially mildly elevated at 66, but it has stablized and down-trended to 48. Chest x-ray cannot be viewed from the [place] [facility]. Shehas been hemodynamically stable, and she has intermittently been on 2 L nasal cannula. Her last echocardiogram was in May 2017 with an EF 35 to 40%. She denies any chest pain, fevers, chills, abdominal pain, vomiting. A&P: This is a 79-year-old female with past medical history of coronary artery disease and ischemic cardiomyopathy presenting with exacerbation of HFrEF. Agree with echocardiogram and diuresis with IV Lasix and escalate dosing as needed for increase in output. At this time, she is 8 years out from her stent,and she does not need dual antiplatelet therapy. She can be de-escalated to aspirin alone. 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 Willinitiate spironolactone, Farxiga, and valsartan as tolerated in addition to her home medication of Coreg. Attending note: Echo at bedside reviewed, with Definity contrast; revealing ejection fraction of 48 to 50% by my visual estimation; with inferior hypokinesis. Patient does not describe any ACS symptomatology; ECG is nonischemic; chronic kidney disease is noted however serum creatinine 1.64 is actually the best she is had reviewing several years worth of renal profiles. She historically has not been on lisinopril due to hypotension ; therefore missing out on appropriate GDMT. 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 Vertigo Neuropathy Poor eyesight Diabetic retinopathy Bilateral hydronephrosis ureteral stents placed Ischemic cardiomyopathy Coronary artery disease Myocardial infarct Hyperlipidemia Hypertension Diabetes mellitus PAD (peripheral artery disease) Other spondylosis with radiculopathy, lumbar region Chronic pain Aortic occlusion Surgical History S/P total left hip arthroplasty History of cataract removal with insertion of prosthetic lens History of cnioo-jjzjd-oaxpsnl bypass History of renal stent History of open heart surgery History of heart artery stent History of delivery S/P angioplasty with stent Family History Father CAD (coronary artery disease) Mother Hypertension Brother Renal cancer Social History Smoking Status: Former smoker Tobacco Type: cigarettes Substance Use Type: None Meds Medications and Allergies Allergies blue dye Allergy (Intermediate, Verified 04/06/25 15:30) Nausea semaglutide (From Rybelsus) Allergy (Intermediate, Verified 04/06/25 15:30) nausea, vomiting adhesive tape Allergy (Unknown, Verified 04/06/25 15:30) rash Home Medications aspirin 81 mg tablet,delayed release (Beth Low Dose Aspirin) 81 mg PO DAILY 05/14/17 [History Confirmed 04/07/25] clopidogrel 75 mg tablet (Plavix) 75 mg PO DAILY 05/14/17 [History Confirmed 04/07/25] carvedilol 25 mg tablet 25 mg PO BID 07/22/18 [History Confirmed 04/07/25] furosemide 40 mg tablet 40 mg PO DAILY 01/12/24 [History Confirmed 04/07/25] ascorbic acid (vitamin C) 1,000 mg tablet 1,000 mg PO DAILY 01/31/25 [History Confirmed 04/07/25] cholecalciferol (vitamin D3) 125 mcg (5,000 unit) capsule 125 mcg PO Q OTHER DAY02/08/25 [History Confirmed 04/07/25] ferrous sulfate 325 mg (65 mg iron) tablet (Iron (ferrous sulfate)) 325 mg PO TID 02/08/25 [History Confirmed 04/07/25] gabapentin 300 mg capsule See Rx Instructions .Route .COMPLEX #60 ea 02/28/25 [Rx Confirmed 04/07/25] allopurinol 300 mg tablet See Rx Instructions .Route .COMPLEX #30 ea 03/01/25 [Rx Confirmed 04/07/25] insulin glargine 100 unit/mL (3 mL) subcutaneous pen (Lantus Solostar U-100 Insulin) 55 unit subcut QHS 03/03/25 [History Confirmed 04/07/25] potassium chloride 10 mEq tablet,extended release 10 meq PO DAILY 03/03/25 [History Confirmed 04/07/25] rosuvastatin 5 mg tablet 5 mg PO QHS 03/03/25 [History Confirmed 04/07/25] acetaminophen 500 mg tablet 1,000 mg (2 x 500 mg) PO Q8H #180 tabs 04/04/25 [Rx Confirmed 04/07/25] pantoprazole 20 mg tablet,delayed release 20 mg PO DAILY 04/07/25 [History Confirmed 04/07/25] Exam Physical Exam Vital Signs: Temp Pulse Resp BP Pulse Ox O2 Del Method O2 Flow Rate 97.8 F 71 18 139/81 99 Room Air 2 04/08/25 07:52 04/08/25 07:52 04/08/25 07:52 04/08/25 07:52 04/08/25 08:29 04/08/25 08:55 04/08/25 07:52 Const General: cooperative, healthy appearing, comfortable and no acute distress HEENT Head: normocephalic and atraumatic Eyes Conjunctivae: conjunctivae normal Neck Neck: supple Chest Chest palpation & inspection: normal palpation of entire chest wall Resp Effort & Inspection: normal respiratory effort and no cough Auscultation: clear to auscultation bilaterally, no rales, no rhonchi and no wheezes Other: wearing 2L NC Cardio Rate: regular rate Rhythm: regular rhythm Heart Sounds: S1 normal, S2 normal, no gallops, no murmurs and no rubs GI Palpation: soft Auscultation: normal bowel sounds Skin General: no rashes or lesions noted Neuro General: patient alert, patient awake and patient oriented x3 Extrem General: no calf tenderness bilaterally and edema Laterality: bilaterally Location: up to knee Severity: pitting and 2+ Psych Affect: normal affect Results - Cardiology Labs 04/08/25 06:04 04/08/25 06:04 Lab results: Lipids 04/08/25 Range/Units 06:04 Triglycerides 190 H (0-149) mg/dL Cholesterol 126 L (140-200) mg/dL HDL Cholesterol 34 (23-92) mg/dL Cholesterol/HDL Ratio 3.7 (<5.0) CBC 04/08/25 Range/Units 06:04 RBC 2.99 L (3.60-5.00) x10E6/uL Hgb 9.9 L (11.8-15.4) g/dL Hct 30.9 L (34.0-46.4) % Plt Count 214 (150-450) x10E3/uL Neut # (Auto) 4.9 (1.8-7.7) x10E3/uL Lymph # (Auto) 1.2 (1.00-4.8) x10E3/uL [place] # (Auto) 0.7 (0.0-0.8) x10E3/uL Eos # (Auto) 0.2 (0.0-0.45) x10E3/uL Baso # (Auto) 0.0 (0.0-0.2) x10E3/uL Comprehensive Metabolic Panel 04/08/25 Range/Units 06:04 Sodium 139 (136-145) mmol/L Potassium 3.9 (3.5-5.1) mmol/L Chloride 101 (98-107) mmol/L Carbon Dioxide 33.2 H (21.0-31.0) mmol/L BUN 30 H (7-25) mg/dL Creatinine 1.64 H (0.60-1.20) mg/dL Glucose 144 H (70-100) mg/dL Calcium 8.8 (8.6-10.3) mg/dL Intake and Output 04/07/25 04/08/25 04/08/25 23:59 07:59 15:59 Intake Total 350 / 350 Output Total 750 / 750 Balance -400 / -400 Intake: Oral 350 / 350 Output: Urine 750 / 750 Other: # Unmeasured Voids 1 # Bowel Movements 1 Weight 78 kg 79 kg Date of Last Bowel Movement 04/08/25 04/08/25 04/08/25 Patient Weight 04/08/25 23:59 Weight 79 kg A&P - Cardiology (1) CHF exacerbation: Code(s): I50.9 - Heart failure, unspecified (2) Coronary artery disease: Code(s): I25.10 - Atherosclerotic heart disease of [place] coronary artery without angina pectoris (3) CKD (chronic kidney disease): Code(s): N18.9 - Chronic kidney disease, unspecified (4) Gout: Code(s): M10.9 - Gout, unspecified (5) Type 2 diabetes mellitus with diabetic chronic kidney disease: Code(s): E11.22 - Type 2 diabetes mellitus with diabetic chronic kidney disease (6) Ischemic cardiomyopathy: Code(s): I25.5 - Ischemic cardiomyopathy Plan as above Documented By: Montana Cobb DO 04/08/25 1116 Signed By: <Electronically signed by Montana Cobb DO> 04/08/25 1546 <Electronically signed by RES Mare Nazario> 04/08/25 1400 [facility] Work Phone: 1(623) 972-509209-26-2025 Progress note Author Mateo Schaeffer [facility] Note Date/Time April 08, 2025 1:[facility] [address] [place] [address] Hospitalist Progress Note Signed Patient: Lexi Tatum MR#: [id number] : 1945 Acct:[id number] Age/Sex: 79 / F Adm Date: 5 Loc: Room: [address] [place] [address] Type: ADM IN Attending Dr: Mateo Schaeffer MD Copies to: ~ Date of Service: 04/08/2025 Subjective Subjective Narrative: Attending note: I saw the patient personally on the day of encounter. I reviewed the relevant history, and performed the nolan elements of the physical examination. I reviewedthe relevant laboratory workup, radiological studies and the current treatment plan. I formulated the plan of care and confirmed it with the resident/student/DRILLER OPERATOR. Pt evaluated at bedside today. No acute events overnight. She reports feeling better overall today. She is no longer on supplemental oxygen but did note that she experienced SOB while eating. She reports continued edema in bilateral LE and both LE are tender to touch. She denies issues eating, drinking, sleeping, or with BM, although she does mention BM have been loose. Exam Physical Exam Vital Signs: Temp Pulse Resp BP Pulse Ox O2 Del Method O2 Flow Rate 97.8 F 71 18 139/81 99 Room Air 2 04/08/25 07:52 04/08/25 07:52 04/08/25 07:52 04/08/25 07:52 04/08/25 08:29 04/08/25 08:29 04/08/25 07:52 Const General: cooperative, comfortable and no acute distress Orientation: alert, awake and oriented x3 Resp Effort & Inspection: normal respiratory effort Auscultation: wheezes Cardio Rate: regular rate Rhythm: regular rhythm GI Palpation: soft and nontender Auscultation: normal bowel sounds Extrem General: edema (pitting, lower extremities ) Laterality: bilaterally Objective Lab Results 04/08/25 06:04 04/08/25 06:04 Meds Allergies and Active Meds Allergies blue dye Allergy (Intermediate, Verified 04/06/25 15:30) Nausea semaglutide (From Rybelsus) Allergy (Intermediate, Verified 04/06/25 15:30) nausea, vomiting adhesive tape Allergy (Unknown, Verified 04/06/25 15:30) rash Active Meds: Active Medications Generic Name Dose Route Start Last Admin Trade Name Freq PRN Reason Stop Dose Admin Acetaminophen 650 mg 04/08/25 00:12 Acetaminophen 325 Mg Tablet PO 04/08/26 00:11 Q6HR PRN Pain Scale 1 - 3 or fever Allopurinol 300 mg 04/08/25 09:00 04/08/25 08:46 Allopurinol 300 Mg Tablet PO 04/08/26 08:59 300 mg DAILY REBA Administration Aspirin 81 mg 04/08/25 09:00 04/08/25 08:46 Aspirin 81 Mg Tablet.Dr PO 04/08/26 08:59 81 mg DAILY REBA Administration Atorvastatin Calcium 10 mg 04/08/25 22:00 Atorvastatin 10 Mg Tablet PO 04/08/26 21:59 QHS REBA Carvedilol 25 mg 04/08/25 08:00 04/08/25 08:46 Carvedilol 25 Mg Tablet PO 04/08/26 07:59 25 mg BID.WITH.MEALS REBA Administration Clopidogrel Bisulfate 75 mg 04/08/25 09:00 04/08/25 08:46 Clopidogrel Bisulfate 75 Mg Tablet PO 04/08/26 08:59 75 mg DAILY REBA Administration Dextrose 0 gm 04/08/25 01:05 Dextrose 50% In Water 25 Gm/50 Ml Syringe IV-PUSH 04/08/26 01:04 PRN PRN Hypoglycemia Enoxaparin Sodium 30 mg 04/08/25 10:00 Enoxaparin 30 Mg/0.3 Ml Syringe SUBCUT 04/08/26 09:59 DAILY@10 REBA Furosemide 40 mg 04/08/25 08:00 Furosemide 40 Mg/4 Ml Vial IV-PUSH 04/08/26 07:59 BID@0800,1600 [facility] Gabapentin 300 mg 04/08/25 09:00 04/08/25 08:46 Gabapentin 300 Mg Capsule PO 04/08/26 08:59 300 mg BID REBA Administration Glucose 0 gm 04/08/25 01:05 Dextrose 40% Gel 15 Gm Tube PO 04/08/26 01:04 PRN PRN Hypoglycemia Insulin Glargine 55 units 04/08/25 22:00 Insulin Glargine 300 Units/3 Ml Insuln.Pen SUBCUT 04/08/26 21:59 QHS REBA Melatonin 5 mg 04/08/25 00:12 Melatonin 5 Mg Tablet PO 04/08/26 00:11 QHS PRN Insomnia Ondansetron HCl 4 mg 04/08/25 00:12 Ondansetron 4 Mg/2 Ml Vial IV-PUSH 04/08/26 00:11 Q8H PRN Nausea And Vomiting Pantoprazole Sodium 40 mg 04/08/25 09:00 04/08/25 08:46 Pantoprazole 40 Mg Tablet. PO 04/08/26 08:59 40 mg DAILY REBA Administration Vitamin D 125 mcg 04/08/25 09:00 04/08/25 08:46 Cholecalciferol 125 Mcg (5,000 Units) Capsule PO 04/08/26 08:59 125 mcg Q48HR REBA Administration A&P - Hospitalist Assessment/Plan (1) CHF exacerbation: (2) Coronary artery disease: (3) CKD (chronic kidney disease): (4) Gout: (5) Type 2 diabetes mellitus with diabetic chronic kidney disease: (6) Ischemic cardiomyopathy: Plan Pt is hospital day 1 due to worsening SOB and edema over last few days/weeks. She is feeling better today, but still has edema in bilateral LE and some SOB when eating. (1) CHF exacerbation: ? Physical exam and presentation is consistent with CHF exacerbation - Supplemental O2 discontinued ? Lasix 40 mg IV push q8hr, hold her p.o. Lasix for better control of her LE edema ? Transthoracic echocardiogram ordered ? Continue remainder of her home medications including carvedilol ? Aspirin and Plavix ordered ? Cardiology consulted, she follows with [facility] but has not seen a feed mill operator since Dr. Morales retired ? Strict I's and O's ? Daily weights (2) Coronary artery disease: ? Her troponin were mildly elevated at 66 at [place], have decreased to 61 withtoday's early labs and then 48 on most recent labs (3) CKD (chronic kidney disease): -Stable and has baseline (4) Gout: -Continue allopurinol (5) Type 2 diabetes mellitus with diabetic chronic kidney disease: - A1c 6.9 today, down from 7.2 on 01/25/25 ? Glucose checks ACHS ? Continue home dose of insulin and Novolog added today for better glucose control (6) Ischemic cardiomyopathy: ? She is not sure how many stents she had placed roughly 8 or 9 years ago but she did have a complication requiring open heart surgery roughly 1 year after her stents were placed. She reports compliance with her aspirin and Plavix. ? DVT prophylaxis addressed ? Diabetic diet with a fluid restriction ? Full code Documented By: Mateo Schaeffer MD 04/08/25 1004 Signed By: <Electronically signed by Mateo Schaeffer MD> 04/08/25 1331 [facility] Work Phone: 1(617) 229-687909-26-2025 History and physical note Author Juice Mackenzie [facility] Note Date/Time April 08, 2025 1:05am [facility] [address] [place] [address] Hospitalist H&P Signed Patient: Lexi Tatum MR#: [id number] : 1945 Acct:[id number] Age/Sex: 79 / F Adm Date: 5 Loc: Room: [address] [place] [address] Type: ADM IN Attending Dr: Juice Mackenzie DO Copies to: MD Juice Salinas DO~ HPI DATE OF EXAMINATION: 04/08/25 CHIEF COMPLAINT: shortness of breath HISTORY OF PRESENT ILLNESS: Miss Tatum Notable for CAD status post stenting and CABGis a 79-year-old female with a past medical history roughly 8 to 9 years ago, diabetes, hypertension, hyperlipidemia who presents to hospital today as a transfer from outside facility with a chief complaint of worsening edema and worsening shortness of breath over the last couple of days/weeks. She been noticing some worsening shortness of breath, especially with ambulation lately, she denies anycoughing or symptoms of orthopnea however her home health nurse was visiting yesterday and was concerned for a pulmonary embolism due to her dyspnea and she was subsequent sent to the emergency room. She was evaluated emergency room at [facility], found to have elevated BNP with lower extremity edema and congestion on her chest x-ray, she was diagnosed with acute CHF. Due to concernfor a PE, her creatinine did preclude a CTA of her chest so a VQ scan was performed in emergency room and showed low probability for PE. Due to there notbeing any feed mill operator at [facility], she was subsequently transferred here for evaluation. 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 Vertigo Neuropathy Poor eyesight Diabetic retinopathy Bilateral hydronephrosis ureteral stents placed Ischemic cardiomyopathy Coronary artery disease Myocardial infarct Hyperlipidemia Hypertension Diabetes mellitus PAD (peripheral artery disease) Other spondylosis with radiculopathy, lumbar region Chronic pain Aortic occlusion Surgical History S/P total left hip arthroplasty History of cataract removal with insertion of prosthetic lens History of mtzvh-[id number]-qpsuekw bypass History of renal stent History of open heart surgery History of heart artery stent History of delivery S/P angioplasty with stent Family History Father CAD (coronary artery disease) Mother Hypertension Brother Renal cancer Social History Smoking Status: Former smoker Tobacco Type: cigarettes Substance Use Type: None Meds Medications and Allergies Allergies blue dye Allergy (Intermediate, Verified 04/06/25 15:30) Nausea semaglutide (From Rybelsus) Allergy (Intermediate, Verified 04/06/25 15:30) nausea, vomiting adhesive tape Allergy (Unknown, Verified 04/06/25 15:30) rash Home Medications aspirin 81 mg tablet,delayed release (Beth Low Dose Aspirin) 81 mg PO DAILY 05/14/17 [History Confirmed 04/07/25] clopidogrel 75 mg tablet (Plavix) 75 mg PO DAILY 05/14/17 [History Confirmed 04/07/25] carvedilol 25 mg tablet 25 mg PO BID 07/22/18 [History Confirmed 04/07/25] furosemide 40 mg tablet 40 mg PO DAILY 01/12/24 [History Confirmed 04/07/25] ascorbic acid (vitamin C) 1,000 mg tablet 1,000 mg PO DAILY 01/31/25 [History Confirmed 04/07/25] cholecalciferol (vitamin D3) 125 mcg (5,000 unit) capsule 125 mcg PO Q OTHER DAY02/08/25 [History Confirmed 04/07/25] ferrous sulfate 325 mg (65 mg iron) tablet (Iron (ferrous sulfate)) 325 mg PO TID 02/08/25 [History Confirmed 04/07/25] gabapentin 300 mg capsule See Rx Instructions .Route .COMPLEX #60 ea 02/28/25 [Rx Confirmed 04/07/25] allopurinol 300 mg tablet See Rx Instructions .Route .COMPLEX #30 ea 03/01/25 [Rx Confirmed 04/07/25] insulin glargine 100 unit/mL (3 mL) subcutaneous pen (Lantus Solostar U-100 Insulin) 55 unit subcut QHS 03/03/25 [History Confirmed 04/07/25] potassium chloride 10 mEq tablet,extended release 10 meq PO DAILY 03/03/25 [History Confirmed 04/07/25] rosuvastatin 5 mg tablet 5 mg PO QHS 03/03/25 [History Confirmed 04/07/25] acetaminophen 500 mg tablet 1,000 mg (2 x 500 mg) PO Q8H #180 tabs 04/04/25 [Rx Confirmed 04/07/25] pantoprazole 20 mg tablet,delayed release 20 mg PO DAILY 04/07/25 [History Confirmed 04/07/25] Exam Physical Exam Vital Signs: Temp Pulse Resp BP Pulse Ox O2 Del Method O2 Flow Rate 97.9 F 73 18 140/69 98 Nasal Cannula 2 04/07/25 23:39 04/07/25 23:39 04/07/25 23:39 04/07/25 23:39 04/07/25 23:39 04/07/25 23:39 04/07/25 23:39 Narrative: General: Awake alert, no acute distress HEENT: head atraumatic, normocephalic, moist mucous membranes Neck: supple no masses, no lymphadenopathy CVS: regular rate and rhythm, no murmurs or gallops Respiratory: clear to auscultation bilaterally, no wheezing or crackles, symmetric expansion GI: soft, nondistended, nontender, positive bowel sounds with no organomegaly Extremity: moves all extremities, no restrictions of movements, no calf tenderness, 3 pitting edema throughout her bilateral lower extremities up to hermid thighs Neuro: AOx3, CN II-VII intact. Moves all extremities in all planes of motion. Skin: dry, intact no rashes or lesions Results - Hospitalist H&P Lab Results Labs: Laboratory Last Values POC Glucose 109 mg/dl 04/08/25 00:03 Assessment & Plan Assessment/Plan (1) CHF exacerbation: Plan: ? Admit to [facility], inpatient status with telemetry ? Physical exam and presentation is consistent with CHF exacerbation ? She is currently requiring 2 L supplemental oxygenation ? Continue with Lasix 40 mg IV push twice daily, hold her p.o. Lasix ? Transthoracic echocardiogram ordered ? Continue remainder of her home medications including carvedilol ? Aspirin and Plavix ordered ? 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 Morales retired ? Strict I's and O's ? Daily weights (2) CKD (chronic kidney disease): Plan: Stable and has baseline (3) Gout: Plan: Continue allopurinol (4) Type 2 diabetes mellitus with diabetic chronic kidney disease: Plan: A1c pending ? Glucose checks ACHS ? Continue home dose of insulin (5) Ischemic cardiomyopathy: Plan: ? She is not sure how many stents she had placed roughly 8 or 9 years ago but she did have a complication requiring open heart surgery roughly 1 year after her stents were placed. She reports compliance with her aspirin and Plavix. (6) Coronary artery disease: Plan: ? Her troponin were mildly elevated at 66 at [place], we will trend this upon admission here Plan ? DVT prophylaxis addressed ? Regular diet with a fluid restriction ? Full code IP vs OBS Justification Based on differential dx, clinical care plan, and risk of adverse events, if untreated, in my clinical judgement this patient requires an acute care setting as: INPATIENT because of an expectation of an over 2 midnight stay. Estimated length of stay (# of days): 3 Documented By: Juice Mackenzie DO 04/08/25 0055 Signed By: <Electronically signed by Juice Mackenzie DO> 04/08/25 0105 [facility] Work Phone: 1(900) 790-306607-21-2025 Evaluation note* Diagnosis Onset Date Resolution Status Admit Date CKD (chronic kidney disease) stage 4, GFR 15-29 ml/min acute January 122024 3:29pm Hypertension acute January 31, 2 025 3:29pm Osteoarthritis of left hip acute January 31, 2025 3:29pm Preoperative examination acute January 31, 2025 3:29pm Type 2 diabetes mellitus wit h hyperglycemia acute January 31, 2025 3:29pm Acute on chronic systolic (congestive) heart failure resolved January 31, 2025 3:29pm Anemia of renal disease acute J azra 2024 3:30pm CKD (chronic kidney disease) stage 4, GFR 15-29 ml/min acute January 122024 3:30pm Hyperlipidemia acute February 08, 2025 3:30pm Hypertensive chronic kidney disease with stage 1 through stage 4 chronic ki acute February 08 3:30pm Proteinuria acute February 08 3:30pm Secondary hyperparathyroidism acute February 08, 2025 3:30pm Gout resolved February 08 3:30pm Type 2 diabetes mellitus wit h diabetic chronic kidney disease resolved February 08, 2025 3:30pm Osteoarthritis of left hip acute March 09, 2025 2:04pm CAD (coronary artery disease) acute March 21, 2025 10:00am Heart failure, unspecified acute March 21, 2025 10:00am Hyperlipidemia acute March 21, 2025 10:00am Hypertension acute March 10:00am Morbid (severe) obesity due to excess calories acute March 21, 025 10:00am Osteoarthritis of left hip acute March 21, 2025 10:00am S/P total left hip arthroplasty acut e March 21, 2025 10:00am Weakness acute March 21, 2025 10:00am CKD (chronic kidney disease) acute March 22, 2025 5:26pm CKD (chronic kidney disease) stage 4, GFR 15-29 ml/min acute 2024 5:26pm Hyperlipidemia acute March 22, 2025 5:26pm Hypertension acute March 5:26pm Impaired mobility acute Maremb er 2024 5:26pm PAD (peripheral artery disease) acut e March 22, 2025 5:26pm S/P total left hip arthroplasty acut e March 22, 2025 5:26pm Type 2 diabetes mellitus wit h hyperglycemia acute March 22, 2 025 5:26pm Acute on chronic systolic (congestive) heart failure resolved mber 2024 5:26pm Steroid-induced hyperglycemia resolv ed March 22, 2025 5:26pm Aftercare following left hip joint replacement surgery acute 2024 2:07pm S/P total left hip arthroplasty acut e April 06, 2025 2:07pm CKD (chronic kidney disease) acute April 07, 2025 11:35pm CHF exacerbation resolved Marembe r 2024 11:35pm Coronary artery disease resolved S 2024 11:35pm Gout resolved March 11:35pm Ischemic cardiomyopathy resolved S 2024 11:35pm Steroid-induced hyperglycemia resolv ed April 07, 2025 11:35pm Type 2 diabetes mellitus wit h diabetic chronic kidney disease resolved April 07, 2025 11:35pm [facility] Work Phone: 1(341) 631-742407-01-2025 Evaluation note* Diagnosis Onset Date Resolution Status [...] 4, GFR 15-29 ml/min acute January 31, 025 3:29pm Hypertension acute January 31, 025 3:29pm Osteoarthritis of left hip acute January 31, 2025 3:29pm Preoperative examination acute January 31, 2025 3:29pm Type 2 diabetes mellitus wit h hyperglycemia acute January 31, 2025 3:29pm Anemia of renal disease acute J azra 2024 3:30pm CKD (chronic kidney disease) stage 4, GFR 15-29 ml/min acute February 08, 025 3:30pm Gout acute February 08 3:30pm Hyperlipidemia acute February 08, 2025 3:30pm Hypertensive chronic kidney disease with stage 1 through stage 4 chronic ki acute February 08, 2025 3:30pm Proteinuria acute February 08 3:30pm Secondary hyperparathyroidism acute February 08, 2025 3:30pm Type 2 diabetes mellitus wit h diabetic chronic kidney disease acute February 08, 2025 3:30pm [facility] Work Phone: 1([phone]) 230-109807-01-2025 Evaluation note* Diagnosis Onset Date Resolution Status [...] 4, GFR 15-29 ml/min acute January 31, 025 3:29pm Hypertension acute January 31 025 3:29pm Osteoarthritis of left hip acute January 31, 2025 3:29pm Preoperative examination acute January 31, 2025 3:29pm Type 2 diabetes mellitus wit h hyperglycemia acute January 31, 2025 3:29pm Anemia of renal disease acute J azra 2024 3:30pm CKD (chronic kidney disease) stage 4, GFR 15-29 ml/min acute February 08 3:30pm Gout acute February 08 3:30pm Hyperlipidemia [...] left hip acute March 09, 2025 2:04pm [facility] Work Phone: 1(150) 606-990007-01-2025 Evaluation note* Diagnosis Onset Date Resolution Status [...] January 122024 3:29pm Hypertension acute January 31, 025 3:29pm Osteoarthritis of left hip acute Esme 21st, 2025 3:29pm Preoperative examination acute January 31, [...] arthroplasty acut e March 21, 2025 10:00am [facility] Work Phone: 1(189) 165-865707-01-2025 Evaluation note* Diagnosis Onset Date Resolution Status [...] obesity due to excess calories acute March 21 025 10:00am Osteoarthritis of left hip acute March 21, 2025 10:00am S/P total left hip arthroplasty acut e March 21, 2025 10:00am Weakness acute March 21, 2025 10:00am Acute on chronic systolic (congestive) heart failure acute 2024 5:26pm CKD (chronic kidney disease) acute March 22, 2025 5:26pm CKD (chronic kidney disease) stage 4, GFR 15-29 ml/min acute 2024 5:26pm Hyperlipidemia acute March 22, 2025 5:26pm Hypertension acute March 5:26pm Impaired mobility acute 2024 5:26pm PAD (peripheral artery disease) acut e March 22, 2025 5:26pm S/P total left hip arthroplasty acut e March 22, 2025 5:26pm Steroid-induced hyperglycemia acute March 22, 2025 5:26pm Type 2 diabetes mellitus wit h hyperglycemia acute March 22, 2 025 5:26pm [facility] Work Phone: 1(767) 348-375207-01-2025 Evaluation note* Diagnosis Onset Date Resolution Status [...] obesity due to excess calories acute March 21 025 10:00am Osteoarthritis of left hip acute March 21, 2025 10:00am S/P total left hip arthroplasty acut e March 21, 2025 10:00am Weakness acute March 21, 2025 10:00am Acute on chronic systolic (congestive) heart failure acute 2024 5:26pm CKD (chronic kidney disease) acute March 22, 2025 5:26pm CKD (chronic kidney disease) stage 4, GFR 15-29 ml/min acute 2024 5:26pm Hyperlipidemia acute March 22, 2025 5:26pm Hypertension acute March 5:26pm Impaired mobility acute Septemb er 2024 5:26pm PAD (peripheral artery disease) acut e March 22, 2025 5:26pm S/P total left hip arthroplasty acut e March 22, 2025 5:26pm Steroid-induced hyperglycemia acute March 22, 2025 5:26pm Type 2 diabetes mellitus wit h hyperglycemia acute March 22 025 5:26pm S/P total left hip arthroplasty acut e April 06, 2025 2:07pm [facility] Work Phone: 1(761) 294-664807-01-2025 Evaluation note* Diagnosis Onset Date Resolution Status [...] due to excess calories acute March 21, 025 10:00am Osteoarthritis of left hip acute March 21, 2025 10:00am S/P total left hip arthroplasty acut e March 21, 2025 10:00am Weakness acute March 21, 2025 10:00am Acute on chronic systolic (congestive) heart failure acute 2024 5:26pm CKD (chronic kidney disease) acute [...] h hyperglycemia acute March 22, 025 5:26pm Aftercare following left hip joint replacement surgery acute 2024 2:07pm S/P total left hip arthroplasty acut e April 06, 2025 2:07pm CHF exacerbation acute 2024 11:35pm CKD (chronic kidney disease) acute April 07, 2025 11:35pm Coronary artery disease acute S 2024 11:35pm Gout acute March 11:35pm Ischemic cardiomyopathy acute S 2024 11:35pm Steroid-induced hyperglycemia acute April 07, 2025 11:35pm Type 2 diabetes mellitus wit h diabetic chronic kidney disease acute April 07, 2025 11:35pm [facility] Work Phone: 1([phone]) 172-410805-05-2025 Evaluation note* Diagnosis Onset Date Resolution Status Admit Date UTI (urinary tract infection ), bacterial acute November 15, 2024 3: 16pm [facility] Work Phone: 1(293) 116-720905-05-2025 Evaluation note* Diagnosis Onset Date Resolution Status [...] hyperglycemia acute January 11, 2025 3 :11pm [facility] Work Phone: 1([phone]) 994-284205-05-2025 Evaluation note* Diagnosis Onset Date Resolution Status [...] kidney disease acute February 08, 2025 3:30pm [facility] Work Phone: 1([phone]) 567-165503-24-2025 Evaluation note* Diagnosis Onset Date Resolution Status [...] bacterial acute November 15, 2024 3: 16pm [facility] Work Phone: 1(480) 349-420403-24-2025 Evaluation note* Diagnosis Onset Date Resolution Status Admit Date CKD (chronic kidney disease) stage 4, GFR 15-29 ml/min acute October 04, 2024 3:28pm Hypertension acute October 04, 2024 3:28pm Osteoarthritis of left hip acute October 04, 2024 3:28pm UTI (urinary tract infection ), bacterial acute October 04, 2024 3:28pm Weakness acute October 04 3:28pm [facility] Work Phone: 1(204) 974-700301-30-2025 Evaluation + Plan note* Assessment & Plan Note - SHAWANDA Parham - 08/12/2024 9:45 AM ESTAssociated Problem(s): BMI 33.0-33.9,adult Reviewed the merits of healthy lifestyle choices on overall cardiovascular health. [facility] Work Phone: 1(498) 849-963201-30-2025 Evaluation + Plan note* Assessment & Plan Note - SHAWANDA Parham - 08/12/2024 9:45 AM ESTAssociated Problem(s): Type 2 diabetes mellitus On WILLIAMS/statin Recent hemoglobin A1c 8.2 [facility] Work Phone: 1([phone]) 796-670101-30-2025 Evaluation + Plan note* Assessment & Plan Note - SHAWANDA Parham - 08/12/2024 9:45 AM ESTAssociated Problem(s): PVD (peripheral vascular disease) ([facility]) She has extensive history of peripheral arterial disease including July 2018 open AAA repair Left subclavian FRUIT CUTTER and stenting Right external iliac FRUIT CUTTER stenting Left common iliac intervention R ICA 50-69% She has not followed up with vascular since Dr. Chanel retired. During January 2024 hospitalization for hydronephrosis she had a CT of the abdomen that was unremarkable in regards to aortic aneurysm. [facility] Work Phone: 1([phone]) 787-331501-30-2025 Miscellaneous Notes* Assessment & Plan Note - [...] EST Associated Problem(s): PVD (peripheral vascular disease) ([facility]) She has extensive history of peripheral arterial disease including July 2018 open AAA repair Left subclavian FRUIT CUTTER and stenting Right external iliac FRUIT CUTTER stenting Left common iliac intervention R ICA [...] less than 4 METS. [facility] Work Phone: 1(468) 953-670301-30-2025 Evaluation + Plan note* Assessment & Plan Note - SHAWANDA Parham - 08/12/2024 9:43 AM ESTAssociated Problem(s): Ischemic cardiomyopathy Ischemic cardiomyopathy heart failure borderline ejection fraction 48% October 2023 MPI Currently no SGLT2 due to acute kidney injury during hospitalization 2023 [facility] Work Phone: 1([phone]) 716-154201-30-2025 Evaluation + Plan note* Assessment & Plan Note - SHAWANDA Pahram - 08/12/2024 9:42 AM ESTAssociated Problem(s): Hyperlipidemia Moderate intensity statin [facility] Work Phone: 1([phone]) 687-789601-30-2025 Evaluation + Plan note* Assessment & Plan Note - SHAWANDA Parham - 08/12/2024 9:41 AM ESTAssociated Problem(s): HTN (hypertension) Asymptomatic hypotension noted in the office today. [facility] Work Phone: 1(466) 617-391101-30-2025 Evaluation + Plan note* Assessment & Plan Note - SHAWANDA Parham - 08/12/2024 9:41 AM ESTAssociated Problem(s): CAD, multiple vessel November 2016 CABG x 15 June 2017 cardiac cath Distal/mid RCA PCI/GURU x 2 HACKETT-LAD was patent Sequential saphenous vein graft from PDA-OM was occluded LVEF 45% October 2023 MPI no ischemia, no infarct. EF 48%. Current daily activity less than 4 METS. [facility] Work Phone: 1([phone]) 545-310301-29-2025 History of Present illness Narrative* Angela Braun, SHAWANDA - 08/11/2024 3:00 PM EST Chief Complaint [...] Atorvastatin Myalgia Williams Inhibitors Other Spironolactone Other Ehaxdxw-Ljl-Eql Reductase Inhibitors Myalgia Current Outpatient Medications Medication [...] during hospitalization 2023 PVD (peripheral vascular disease) ([facility] She has extensive history of peripheral arterial disease including July 2018 open AAA repair Left subclavian FRUIT CUTTER and stenting Right external iliac FRUIT CUTTER stenting Left common iliac intervention R ICA [...] annual unless abnormal testing Angela Braun MSN, PLUG SORTER-RECORD MAKER, PMHNP-[facility] [place], [place] Please excuse any errors in grammar or translation related to this dictation. Voice recognition software was utilized to prepare this document. [facility] Work Phone: 1([phone]) 184-463601-29-2025 Instructions* Patient Instructions* SHAWANDA Parham - 08/11/2024 [...] annual unless abnormal testing [facility] Work Phone: 1([phone]) 297-780601-21-2025 Evaluation note* Diagnosis Onset Date Resolution Status [...] kidney disease acute August 03, 2024 10:50am [facility] Work Phone: 1([phone]) [phone] Evaluation note* Diagnosis Onset Date Resolution Status [...] 2024 3:28pm Weakness acute October 04 3:28pm [facility] Work Phone: [phone] 533-678712-19-2024 Evaluation note* Diagnosis Onset Date Resolution Status Admit Date Heart failure, unspecified acute Getachew 19th, 2024 10:55am Primary osteoarthritis of left hip [...] kidney disease acute August 03, 2024 10:50am [facility] Work Phone: 1([phone]) 559-276012-16-2024 Evaluation note* Diagnosis Onset Date Resolution Status Admit Date Primary osteoarthritis of left hip a cute June 28, 2024 10:19am Heart failure, unspecified acute July 01, 2024 10:55am Primary osteoarthritis of left hip a cute July 01, 2024 10:55am Type 2 diabetes mellitus wit h hyperglycemia acute July 01 024 10:55am Anemia of renal disease acute [...] kidney disease acute August 03, 2024 10:50am [facility] Work Phone: [phone] 111-661211-07-2024 Evaluation note* Diagnosis Onset Date Resolution Status [...] wit h hyperglycemia acute July 01 10:55am [facility] Work Phone: [phone] 151-851311-07-2024 Evaluation note* Diagnosis Onset Date Resolution Status Admit Date Anemia of renal disease acute N ov2023 9:55am CKD (chronic kidney disease) stage 4, [...] 10:55am Anemia of renal disease acute J an2024 10:50am CKD (chronic kidney disease) stage 4, [...] kidney disease acute August 03, 2024 10:50am [facility] Work Phone: 1([phone]) 480-646608-23-2024 Evaluation note* Diagnosis Onset Date Resolution Status Admit Date Anemia of renal disease acute A ugust 2023 1:13pm CKD (chronic kidney disease) stage 4, GFR 15-29 ml/min acute March 05, 2024 1:13pm Primary osteoarthritis of le ft hip acute March 05 1:13pm Sepsis due to urinary tract infection acute March 05 1:13pm Anemia of renal disease acute 2023 1:52pm CKD (chronic kidney disease) stage 4, [...] tract infection) acute April 07, 2024 10:09am [facility] Work Phone: [phone]) [phone] Evaluation note* Diagnosis Onset Date Resolution Status Admit Date Anemia of renal disease acute A ugust 2023 1:13pm CKD (chronic kidney disease) stage 4, GFR 15-29 ml/min acute March 05, 2024 1:13pm Primary osteoarthritis of le ft hip acute March 05 1:13pm Sepsis due to urinary tract infection acute March 05 1:13pm Anemia of renal disease acute 2023 1:52pm CKD (chronic kidney disease) stage 4, [...] tract infection) acute May 25, 2024 10:32am [facility] Work Phone: 1([phone]) 817-665208-22-2024 NoteMicrobiology PROCEDURE: Blood Culture Charcoal [R1] SOURCE: Blood BODY SITE: Hand L COLLECTED DATE/TIME: 02/26/2024 19:07 EDT RECEIVED DATE/TIME: 02/26/2024 20:12 EDT START DATE/TIME: 02/26/2024 20:12 EDT FREE TEXT SOURCE: KADE MARLOW, Allison CHANCE MD, Allison FINAL REPORTS Final Report [] Verified Date/Time: 03/04/2024 21:00 EDT No growth at 7 days. Performing Locations R1: This test was performed at: [facility], [address] [place] [address], [id number] [place] [id number], [id number] Spencer StreetComment on above:Performed By: #### [id number] #### [address] [id number] NoteMicrobiology PROCEDURE: Blood Culture Charcoal [R1] SOURCE: Blood BODY SITE: Hand R COLLECTED DATE/TIME: 02/26/2024 19:07 EDT RECEIVED DATE/TIME: 02/26/2024 20:12 EDT START DATE/TIME: 02/26/2024 20:12 EDT FREE TEXT SOURCE: KADE MARLOW, Allison CHANCE MD, Allison FINAL REPORTS Final Report [] Verified Date/Time: 03/04/2024 21:00 EDT No growth at 7 days. Performing Locations R1: This test was performed at: [facility], [address] [place] [address], [id number] [place] [address], [address] [place], [place] [address]Comment on above:Performed By: #### [id number] #### [facility] [address] [place] [address] [id number] Hospital Discharge instructions Patient Education 02/29/2024 14:58:25 [...] Follow these instructions at home: Medicines Take gege-hre-gbbsnht and prescription medicines only as told by [...] follow-up visits. Where to find more information [employer] Patients: www.aakp.org National Kidney Foundation: www.kidney.org [employer] Kid[employer]: www.akfinc.org Medical Education [place]: ?LifeOptions: www.lifeoptions.org ?Kidney School: www.kidneyschool.org Contact a health care provider if: Your symptoms get worse. You have new symptoms such as: ?Headaches. ?Skin that is darker or leaf sorter than normal. ?Easy bruising. ?Itchiness. ?Hiccups. ?Lack [...] provider. Document Revised: 10/07/2022 Document Reviewed: 05/09/2020 [employer] Patient Education 2022 [email or web address] 02/29/2024 14:58:22 Sepsis, Diagnosis, Adult Sepsis, Diagnosis, [...] Follow these instructions at home: Medicines Take ogfp-jyo-eaoawnx and prescription medicines only as told by [...] provider. Document Revised: 05/14/2021 Document Reviewed: 05/14/2021 [employer] Patient Education 2022 [email or web address] Follow Up Care 02/26/2024 17:29:51 With:STEFAN BEST Address: [address] [place] [address] Business (1) When:03/05/2024 13:45:00 [facility] 08-18-2024 NoteDischarge Summary Admission and Discharge Information Admit Date/Time:02/26/2024 18:07 Admitting Physician - Allison CHANCE MD Admitting Diagnoses: Discharge Order Date Discharge with Home Health - Ordered -- 02/29/24 13:39:00 EDT, [facility] after 5:15pm if afebrile Discharge Diagnoses [...] suprapubic pain. She was subsequently admitted to [facility] with acute metabolic encephalopathy secondary to [...] physical therapy. Initially physical therapy had recommended jail facility placement but patient was hesitant and [...] Discharge Disposition Discharge To, Anticipated II - Retirement Unit Discharged to - Home with home [...] enteric coated t (more content not included)... [facility]Result Comment: Electronically Signed By: Allison CHANCE MD\.br\Date and Time Signed: 02/29/24 16:44 EDT 02-29-2024 NoteProgress Note-Nurse Report called to Vincent Delgado, night guard. Discharge paperwork provided to patient and .[facility]08-18-2024 Evaluation + Plan note Extracted from: Title:Discharge Note Author:Allison CHANCE MD ate:02/29/24 Stable Discharge To, Anticipated II - Retirement Unit Discharged to - Home with home [...] 1 tab(s), Chewed, Daily Vitamin D Oral, [address] [employer]_Unit, Oral, Daily With When Contact Information STEFAN BEST 03/05/2024 01:45 PM EDT [address] [facility] (1) Additional Instructions: Acute Kidney Injury, Adult [...] present on admission. Resolved. Ordered: Neurological Assessment [facility] Hospital Care/Day Moderate 35 Minutes 89231 2. Sepsis (A41.9: Sepsis, unspecified organism) Sepsis secondary to urinary tract infection present on admission. Resolved. Urine cultures isolating gram-negative sabrina organisms. Blood cultures so far not isolating any organisms. Ordered: [facility] Hospital Care/Day Moderate 35 Minutes 46319 3. Urinary tract infection (N39.0: Urinary tract infection, site not specified) Gram-negative sabrina urinary tract infection present on admission. Treated with IV ceftriaxone and will transition to oral antibiotics at discharge. Ordered: [facility] Hospital Care/Day Moderate 35 Minutes 84177 4. Acute kidney injury (N17.9: Acute kidney failure, unspecified) Acute kidney injury on chronic kidney disease secondary to ATN from above sepsis and UTI. Resolved. Creatinine down to 1.5. Baseline creatinine 1.4 1.5 Avoid nephrotoxic drugs. Treated with IV fluids. Ordered: [facility] Hospital Care/Day Moderate 35 Minutes [id number] 5. Elevated troponin (R79.89: Other specified abnormal findings of blood chemistry) Elevated troponin secondary to type II non-ST segment elevation myocardial infarction from above disease process. Troponin trended down. Patient has no chest pain. No further workup needed. Ordered: [facility] Hospital Care/Day Moderate 35 Minutes 37712 6. Hypoglycemia (E16.2: Hypoglycemia, unspecified) Secondary to [...] is intolerant to atorvastatin used here at [facility] [place]. 12. Class 3 severe obesity with serious comorbidity in adult (E66.01: Morbid (severe) obesity due to excess calories) Recommend therapeutic lifestyle modification changes. 13. Coronary artery disease (I25.10: Atherosclerotic heart disease of [place] coronary artery without angina pectoris) Status post [...] made to ensure accuracy. However inadvertent computerized heel seat fitter machine errors may be present. Allison Chance. Hospitalist. [...] POC Urine Culture Extracted from: Title:APSO Note Author:KADE MARLOW, Mbanefo [...] cultures. Ordered: Home Health Orders Neurological Assessment [facility] Hospital Care/Day Moderate 35 Minutes 42899 2. Sepsis (A41.9: Sepsis, unspecified organism) Sepsis secondary to urinary tract infection present on admission. Resolved. Treating with IV fluid, IV ceftriaxone. Blood cultures so far not isolating any organisms. Ordered: Home Health Orders [facility] Hospital Care/Day Moderate 35 Minutes 30617 3. Urinary tract infection (N39.0: Urinary tract infection, site not specified) Urinary tract infection present on admission. Treating with IV ceftriaxone pending final urine culture result. Ordered: [facility] Hospital Care/Day Moderate 35 Minutes [id number] 4. Acute kidney injury (N17.9: Acute kidney failure, unspecified) Acute kidney injury on chronic kidney disease secondary to ATN from above sepsis and UTI. Resolved. Creatinine down to 1.5. Baseline creatinine 1.4 1.5 Avoid nephrotoxic drugs. Treating with IV fluids. Ordered: Basic Metabolic Panel eGFR Extra Lav Tube [facility] Hospital Care/Day Moderate 35 Minutes 65422 5. Elevated troponin (R79.89: Other specified abnormal findings of blood chemistry) Elevated troponin secondary to type II non-ST segment elevation myocardial infarction from above disease process. Troponin trended down. Patient has no chest pain. No further workup needed. Ordered: [facility] Hospital Care/Day Moderate 35 Minutes 25616 6. Hypoglycemia (E16.2: Hypoglycemia, unspecified) Secondary to [...] artery disease (I25.10: Atherosclerotic heart disease of [place] coronary artery without angina pectoris) Status post [...] made to ensure accuracy. However inadvertent computerized heel seat fitter machine errors may be present. Allison Chance. Hospitalist. [...] Center Extracted from: Title:APSO Note Author:KADE MARLOW, Olesyaanefo [...] underlying disease process. Neurochecks. Follow cultures. Ordered: [facility] Hospital Care/Day Moderate 35 Minutes [id number] 2. Sepsis (A41.9: Sepsis, unspecified organism) Sepsis secondary to urinary tract infection present on admission. Treating with IV fluid, IV ceftriaxone. Follow cultures. Ordered: [facility] Hospital Care/Day Moderate 35 Minutes [id number] 3. Urinary tract infection (N39.0: Urinary tract infection, site not specified) Urinary tract infection present on admission. Treating with IV ceftriaxone pending final urine culture result. Ordered: [facility] Hospital Care/Day Moderate 35 Minutes 23248 4. Acute kidney injury (N17.9: Acute kidney failure, unspecified) Acute kidney injury on chronic kidney disease secondary to ATN from above sepsis and UTI. Avoid nephrotoxic drugs. Treating with IV fluids. Repeat BMP in AM. Ordered: Basic Metabolic Panel [facility] Hospital Care/Day Moderate 35 Minutes 05480 5. Elevated troponin (R79.89: Other specified abnormal findings of blood chemistry) Elevated troponin secondary to type II non-ST segment elevation myocardial infarction from above disease process. Troponin trended down. Patient has no chest pain. No further workup needed. Ordered: [facility] Hospital Care/Day Moderate 35 Minutes [id number] 6. Generalized weakness (R53.1: Weakness) Secondary to [...] artery disease (I25.10: Atherosclerotic heart disease of [place] coronary artery without angina pectoris) Status post [...] made to ensure accuracy. However inadvertent computerized heel seat fitter machine errors may be present. Allison Chance. Hospitalist. [...] artery disease (I25.10: Atherosclerotic heart disease of [place] coronary artery without angina pectoris) Status post [...] made to ensure accuracy. However inadvertent computerized heel seat fitter machine errors may be present. Allison Chance. Hospitalist. [...] Vital Signs Vital Signs Weight [facility] 08-18-2024 NoteProgress Note-Physician Assessment/Plan 78-year-old female with [...] injury?present on admission. Resolved. Ordered: Neurological Assessment [facility] Hospital Care/Day Moderate 35 Minutes 11233 2. Sepsis (A41.9: Sepsis, unspecified organism) Sepsis?secondary to urinary tract infection?present on admission. Resolved. Urine cultures isolating gram-negative sabrina organisms. Blood cultures so far not isolating any organisms. Ordered: [facility] Hospital Care/Day Moderate 35 Minutes 69802 3. Urinary tract infection (N39.0: Urinary tract infection, site not specified) Gram-negative sabrina urinary tract infection?present on admission. Treated with IV ceftriaxone and will transition to oral antibiotics at discharge. Ordered: [facility] Hospital Care/Day Moderate 35 Minutes 47589 4. Acute kidney injury (N17.9: Acute kidney failure, unspecified) Acute kidney injury on chronic kidney disease?secondary to ATN from above sepsis and UTI. Resolved. Creatinine down to 1.5. Baseline creatinine 1.4?1.5 Avoid nephrotoxic drugs. Treated with IV fluids. Ordered: [facility] Hospital Care/Day Moderate 35 Minutes 00553 5. Elevated troponin (R79.89: Other specified abnormal findings of blood chemistry) Elevated troponin?secondary to type II non-ST segment elevation myocardial infarction from above disease process. Troponin trended down. Patient has no chest pain. No further workup needed. Ordered: [facility] Hospital Care/Day Moderate 35 Minutes 49818 6. Hypoglycemia (E16.2: Hypoglycemia, unspecified) Secondary to [...] is intolerant to atorvastatin used here at [facility] [place]. 12. Class 3 severe obesity with serious comorbidity in adult (E66.01: Morbid (severe) obesity due to excess calories) Recommend therapeutic lifestyle modification changes. 13. Coronary artery disease (I25.10: Atherosclerotic heart disease of [place] coronary artery without angina pectoris) Status post CABG. Stable. Continue on Plavix, Coreg. 14. On deep vein thrombosis (DVT) prophylaxis (Z79.899: Other inspector machine parts (current) drug therapy) Heparin. Disposition: Discharging AM [...] made to ensure accuracy. However inadvertent computerized heel seat fitter machine errors may be present. Allison Chance. Hospitalist. [...] (4) Oral Intake mL (more content not included)...[facility]Result Comment: Electronically Signed By: KADE MARLOW, Allison\.br\Date and Time Signed: 02/29/24 08:54 [id number] NoteProgress Note-Physician Assessment/Plan 78-year-old female with diabetes [...] cultures. Ordered: Home Health Orders Neurological Assessment [facility] Hospital Care/Day Moderate 35 Minutes 62045 2. Sepsis (A41.9: Sepsis, unspecified organism) Sepsis?secondary to urinary tract infection?present on admission. Resolved. Treating with IV fluid, IV ceftriaxone. Blood cultures so far not isolating any organisms. Ordered: Home Health Orders [facility] Hospital Care/Day Moderate 35 Minutes 85121 3. Urinary tract infection (N39.0: Urinary tract infection, site not specified) Urinary tract infection?present on admission. Treating with IV ceftriaxone pending final urine culture result. Ordered: [facility] Hospital Care/Day Moderate 35 Minutes 35008 4. Acute kidney injury (N17.9: Acute kidney failure, unspecified) Acute kidney injury on chronic kidney disease?secondary to ATN from above sepsis and UTI. Resolved. Creatinine down to 1.5. Baseline creatinine 1.4?1.5 Avoid nephrotoxic drugs. Treating with IV fluids. Ordered: Basic Metabolic Panel eGFR Extra Lav Tube [facility] Hospital Care/Day Moderate 35 Minutes 52853 5. Elevated troponin (R79.89: Other specified abnormal findings of blood chemistry) Elevated troponin?secondary to type II non-ST segment elevation myocardial infarction from above disease process. Troponin trended down. Patient has no chest pain. No further workup needed. Ordered: [facility] Hospital Care/Day Moderate 35 Minutes 01671 6. Hypoglycemia (E16.2: Hypoglycemia, unspecified) Secondary to [...] artery disease (I25.10: Atherosclerotic heart disease of [place] coronary artery without angina pectoris) Status post CABG. Stable. Continue on Plavix, Coreg. 14. On deep vein thrombosis (DVT) prophylaxis (Z79.899: Other inspector machine parts (current) drug therapy) Heparin. Disposition: Pending final urine culture result. I discussed the diagnosis and plan of care with the patient at the bedside. Moderate level of MDM based on addressing above issues. This documentation was transcribed using voice recognition software. Several attempts were made to ensure accuracy. However inadvertent computerized heel seat fitter machine errors may be present. Allison Chance. Hospitalist. [...] feeling much better. Feeli (more content not included)...[facility] Comment on above:Result Comment: Electronically Signed By: KADE MARLOW, Allison\.br\Date and Time Signed: 02/28/24 08:54 [id number] NoteProgress Note-Physician Assessment/Plan 78-year-old female with diabetes [...] underlying disease process. Neurochecks. Follow cultures. Ordered: [facility] Hospital Care/Day Moderate 35 Minutes 64605 2. Sepsis (A41.9: Sepsis, unspecified organism) Sepsis?secondary to urinary tract infection?present on admission. Treating with IV fluid, IV ceftriaxone. Follow cultures. Ordered: [facility] Hospital Care/Day Moderate 35 Minutes 45352 3. Urinary tract infection (N39.0: Urinary tract infection, site not specified) Urinary tract infection?present on admission. Treating with IV ceftriaxone pending final urine culture result. Ordered: [facility] Hospital Care/Day Moderate 35 Minutes 97909 4. Acute kidney injury (N17.9: Acute kidney failure, unspecified) Acute kidney injury on chronic kidney disease?secondary to ATN from above sepsis and UTI. Avoid nephrotoxic drugs. Treating with IV fluids. Repeat BMP in AM. Ordered: Basic Metabolic Panel [facility] Hospital Care/Day Moderate 35 Minutes 07516 5. Elevated troponin (R79.89: Other specified abnormal findings of blood chemistry) Elevated troponin?secondary to type II non-ST segment elevation myocardial infarction from above disease process. Troponin trended down. Patient has no chest pain. No further workup needed. Ordered: [facility] Hospital Care/Day Moderate 35 Minutes 70343 6. Generalized weakness (R53.1: Weakness) Secondary to [...] artery disease (I25.10: Atherosclerotic heart disease of [place] coronary artery without angina pectoris) Status post [...] 18:52:00 EDT, 02/26/24 18: (more content not included)...[facility] Comment: Electronically Signed By: KADE MARLOW, Allison\.br\Date and Time Signed: 02/27/24 11:54 [id number] NoteProgress Note-Physician Assessment/Plan 78-year-old female with diabetes [...] underlying disease process. Neurochecks. Follow cultures. Ordered: [facility] Hospital Care/Day Moderate 35 Minutes 26483 2. Sepsis (A41.9: Sepsis, unspecified organism) Sepsis?secondary to urinary tract infection?present on admission. Treating with IV fluid, IV ceftriaxone. Follow cultures. Ordered: [facility] Hospital Care/Day Moderate 35 Minutes 11853 3. Urinary tract infection (N39.0: Urinary tract infection, site not specified) Urinary tract infection?present on admission. Treating with IV ceftriaxone pending final urine culture result. Ordered: [facility] Hospital Care/Day Moderate 35 Minutes 65603 4. Acute kidney injury (N17.9: Acute kidney failure, unspecified) Acute kidney injury on chronic kidney disease?secondary to ATN from above sepsis and UTI. Avoid nephrotoxic drugs. Treating with IV fluids. Repeat BMP in AM. Ordered: Basic Metabolic Panel [facility] Hospital Care/Day Moderate 35 Minutes 38672 5. Elevated troponin (R79.89: Other specified abnormal findings of blood chemistry) Elevated troponin?secondary to type II non-ST segment elevation myocardial infarction from above disease process. Troponin trended down. Patient has no chest pain. No further workup needed. Ordered: [facility] Hospital Care/Day Moderate 35 Minutes 87074 6. Generalized weakness (R53.1: Weakness) Secondary to [...] artery disease (I25.10: Atherosclerotic heart disease of [place] coronary artery without angina pectoris) Status post CABG. Stable. Continue on Plavix, Coreg. Will verify aspirin. 13. On deep vein thrombosis (DVT) prophylaxis (Z79.899: Other inspector machine parts (current) drug therapy) Heparin. Orders: acetaminophen, 650 [...] 18:52:00 EDT, 02/26/24 18: (more content not included)...[facility]Result Comment: Electronically Signed By: KADE MARLOW, Allison\.br\Date and Time Signed: 02/27/24 09:45 [id number] NoteHistory and Physical Chief Complaint To ED [...] reviewed in the emergency room by the feed mill operator who said the patient was not having [...] Lymph Auto: 8.4 % Low (02/26/24 17:30:00) [place] Auto: 7.9 % (02/26/24 17:30:00) Eos Auto: 0.5 % (02/26/24 17:30:00) Basophil Auto: 1 % (02/26/24 17:30:00) Neutro Absolute: 10.5 E9/L High (02/26/24 17:30:00) Lymph Absolute: 1.1 E9/L (02/26/24 17:30:00) [place] Absolute: 1 E9/L (02/26/24 17:30:00) Eos Absolute: 0.1 E9/L (02/26/24 17:30:00) Basophil Absolute: 0.1 E9/L (02/26/24 17:30:00) PT: 12 second(s) (02/26/24 17:30:00) INR: 1.07 (02/26/24 17:30:00) PTT: 30.9 second(s) (02/26/24 17:30:00) Glucose Lvl: 97 mg/dL (02/26/24 17:30:00) BUN: 39 mg/dL High (02/26/24 17:30:00) Creatinine: 1.8 mg/dL High (02/26/24 17:30:00) eGFR: 28 mL/min/1.73 m2 Low (02/26/24:30:00) BUN/Creat Ratio: 22 High (02/26/24 17:30:00) Sodium Lvl: 133 mmol/L Low (02/26/24 17:30:00) Potassium Lvl: 4.4 mmol/L (02/26/24:30:00) Chloride: 100 [...] reviewed by me: N (more content not included)...[facility]Result Comment: Electronically Signed By: KADE MARLOW, Allison\.br\Date and Time Signed: 02/26/24 19:01 [id number] Hospital Discharge instructions Patient Education 02/10/2024 16:20:39 [...] transplant. Follow these instructions at home: Take kysf-mce-ypoiapv and prescription medicines only as told by [...] provider. Document Revised: 10/17/2020 Document Reviewed: 10/17/2020 [employer] Patient Education 2022 [email or web address] Follow Up Care 01/26/2024 09:56:54 With:DELGADO MARLOW, Yaniv Vela, URL Address: [facility] [employer] [address] [address]- When: Unknown [facility] [place] 07-30-2024 NotePatient Education Urology Hydronephrosis Hydronephrosis is [...] Follow these instructions at home: ? Take kjvj-qyv-xavduif and prescription medicines only as told by [...] provider. Document Revised: 10/17/2020 Document Reviewed: 10/17/2020 [employer] Patient Education ? [email or web address] 01-25-2024 Progress note Author Gita Azevedo [facility] January 25, 2024 11:30am Note Date/Time January 25, 2024 11:3 1am [facility] [address] [place] [address] Nephrology Progress Note Signed Patient: Lexi Tatum MR#: [id number] : 1945 Acct:[id number] Age/Sex: 78 / F Adm Date: 4 Loc: Room: [address] [place] [address] Type: ADM IN Attending Dr: Norberto Pires [...] 300 Mg Tablet) 300 mg PO DAILY [facility] Stop: 01/22/25 08:59 Last Admin: 01/25/24 08:29 Dose: 300 mg Atorvastatin Calcium (Atorvastatin 10 Mg Tablet) 10 mg PO QHS REBA Stop: 01/21/25 21:59 Last Admin: 01/24/24 21:12 Dose: 10 mg Carvedilol (Carvedilol 25 Mg Tablet) 25 mg PO BID.WITH.MEALS [facility] Stop: 01/21/25 19:04 Last Admin: 01/25/24 08:29 Dose: 25 mg Dextrose (Dextrose 50% In Water 25 Gm/50 Ml Syringe) 0 gm IV-PUSH PRN PRN PRN Reason: Hypoglycemia Stop: 01/21/25 18:58 Docusate Sodium (Docusate 100 Mg Capsule) 100 mg PO BID [facility] Stop: 01/21/25 20:59 Last Admin: 01/25/24 08:30 Dose: 100 mg Furosemide (Furosemide 40 Mg Tablet) 40 mg PO DAILY.8A [facility] Stop: 01/25/25 07:59 Gabapentin (Gabapentin 300 Mg Capsule) 300 mg PO BID [facility] Stop: 01/21/25 20:59 Last Admin: 01/25/24 08:29 Dose: 300 mg Glucose (Dextrose 40% Gel 15 Gm Tube) 0 gm PO PRN PRN PRN Reason: Hypoglycemia Stop: 01/21/25 18:58 Heparin Sodium (Porcine) (Heparin 5,000 Unit/Ml Vial) 5,000 unit SUBCUT Q12HR [facility] Stop: 01/22/25 20:59 Last Admin: 01/24/24 09:07 Dose: 5,000 unit Hydralazine HCl (Hydralazine 20 Mg/Ml Vial) 10 mg IV-PUSH Q4H PRN PRN Reason: Hypertension Stop: 01/21/25 18:58 Insulin Aspart (Insulin Aspart 300 Units/3 Ml Insuln.Pen) 0 units SUBCUT TID.WM.HS [facility]; Protocol Stop: 01/21/25 21:59 Last Admin: 01/25/24 08:30 Dose: Not Given Insulin Glargine (Insulin Glargine 300 Units/3 Ml Insuln.Pen) 50 units SUBCUT QPM [facility] Stop: 01/23/25 20:59 Last Admin: 01/24/24 21:12 Dose: 50 units Magnesium Hydroxide (Magnesium Hydroxide Susp 30 Ml Udc) 30 ml PO BID PRN PRN Reason: Constipation Stop: 01/21/25 18:58 Metoprolol Tartrate (Metoprolol Tartrate 5 Mg/5 Ml Vial) 5 mg IV-PUSH Q4H PRN PRN Reason: Blood Pressure Stop: 01/21/25 18:58 Oxybutynin Chloride (Oxybutynin Chloride 5 Mg Tab.Er.24) 15 mg PO DAILY [facility] Stop: 01/22/25 08:59 Last Admin: 01/25/24 08:29 [...] <Electronically signed by MD Gita Azevedo> 01/25/24 [address] [facility] Work Phone: 1(500) 195-760707-13-2024 Progress note Author Norberto Pires [facility] January 24, 2024 2:31pm Note Date/Time January 24, 2024 2:25 pm [facility] [address] [place] [address] Hospitalist Progress Note Signed Patient: Lexi Tatum MR#: [id number] : 1945 Acct:[id number] Age/Sex: 78 / F Adm Date: 4 Loc: Room: [address] [place] [address] Type: ADM IN Attending Dr: Norberto Pires DO Copies to: ~ Date of Service: 01/24/2024 Subjective Subjective Narrative: Overnight the patient did develop hematuria. This never had any clots. She hasnot had any difficulty voiding urine. Her beet colored urine was collected in the [facility] collection system. Just before my visit with [...] Capsule.Er PO 01/22/25 08:59 10 meq DAILY RBEA Administration Sodium Chloride 0 ml 01/22/24 11:54 [...] signed by Norberto Pires DO> 01/24/24 [address] [facility] Work Phone: 1(126) 207-552607-13-2024 Progress note Author Gita Azevedo [facility] January 24, 2024 12:21pm Note Date/Time January 24, 2024 12:2 2pm [facility] [address] [place] [address] Nephrology Progress Note Signed Patient: Lexi Tatum MR#: [id number] : 1945 Acct:[id number] Age/Sex: 78 / F Adm Date: 4 Loc: Room: [address] [place] [address] Type: ADM IN Attending Dr: Norberto Pires [...] 300 Mg Tablet) 300 mg PO DAILY [facility] Stop: 01/22/25 08:59 Last Admin: 01/24/24 09:08 Dose: 300 mg Atorvastatin Calcium (Atorvastatin 10 Mg Tablet) 10 mg PO QHS REBA Stop: 01/21/25 21:59 Last Admin: 01/23/24 22:43 Dose: Not Given Carvedilol (Carvedilol 25 Mg Tablet) 25 mg PO BID.WITH.MEALS [facility] Stop: 01/21/25 19:04 Last Admin: 01/24/24 09:08 Dose: 25 mg Dextrose (Dextrose 50% In Water 25 Gm/50 Ml Syringe) 0 gm IV-PUSH PRN PRN PRN Reason: Hypoglycemia Stop: 01/21/25 18:58 Docusate Sodium (Docusate 100 Mg Capsule) 100 mg PO BID [facility] Stop: 01/21/25 20:59 Last Admin: 01/24/24 09:08 Dose: 100 mg Gabapentin (Gabapentin 300 Mg Capsule) 300 mg PO BID [facility] Stop: 01/21/25 20:59 Last Admin: 01/24/24 09:08 Dose: 300 mg Glucose (Dextrose 40% Gel 15 Gm Tube) 0 gm PO PRN PRN PRN Reason: Hypoglycemia Stop: 01/21/25 18:58 Heparin Sodium (Porcine) (Heparin 5,000 Unit/Ml Vial) 5,000 unit SUBCUT Q12HR [facility] Stop: 01/22/25 20:59 Last Admin: 01/24/24 09:07 Dose: 5,000 unit Hydralazine HCl (Hydralazine 20 Mg/Ml Vial) 10 mg IV-PUSH Q4H PRN PRN Reason: Hypertension Stop: 01/21/25 18:58 Sodium Chloride (0.9% Sodium Chloride 1,000 Ml) 1,000 mls @ 75 mls/hr IV .[id number] [facility] Stop: 01/21/25 18:59 Last Admin: 01/23/24 20:12 Dose: 100 mls/hr Insulin Aspart (Insulin Aspart 300 Units/3 Ml Insuln.Pen) 0 units SUBCUT TID.WM.[facility]; Protocol Stop: 01/21/25 21:59 Last Admin: 01/24/24 09:09 Dose: 3 units Insulin Glargine (Insulin Glargine 300 Units/3 Ml Insuln.Pen) 25 units SUBCUT QPM [facility] Stop: 01/21/25 20:59 Last Admin: 01/23/24 22:52 [...] Rhett Ponce M.D.01/23/2024 7:31 PM Dictation Location: [place] [address] Any impression(s) listed above is documentation that [...] signed by MD Gita Azevedo> 01/24/24 [address] [facility] Work Phone: 1(132) 781-875407-12-2024 Progress note Author Norberto Pires [facility] January 23, 2024 6:51pm Note Date/Time January 23, 2024 6:40 pm [facility] [address] [place] [address] Hospitalist Progress Note Signed Patient: Lexi Tatum MR#: [id number] : 1945 Acct:[id number] Age/Sex: 78 / F Adm Date: 4 Loc: Room: [address] [place] [address] Type: ADM IN Attending Dr: Norberto Pires [...] Dose Route Start Last Admin Trade Name Kwasi PRN Reason Stop Dose Admin Acetaminophen 650 [...] 1,000 Ml IV 01/21/25 18:59 100 mls/hr .[id number] REBA Administration Lactated Ringer's 1,000 mls @ [...] the morning. Documented By: Norberto Pires DO 214 Signed By: <Electronically signed by Norberto iPres DO> 01/23/24 [address] [facility] Work Phone: 1(880) 146-737307-12-2024 Consult note Author Yaniv Natarajan [facility] January 23, 2024 3:44pm Note Date/Time January 23, 2024 3:44 pm [facility] [address] [place] [address] Urology Consult Note Signed Patient: Lexi Tatum MR#: [id number] : 1945 Acct:[id number] Age/Sex: 78 / F Adm Date: 4 Loc: Room: [address] [place] [address] Type: ADM IN Attending Dr: Norberto Pires [...] and P documented by Dr. Pires yesterday. [facility] Medical History (Updated 01/23/24 @ 10:50 [...] % (Auto) 65.0, Lymph % (Auto) 23.9, [place] % (Auto) 6.8, Eos % (Auto) 3.7, Baso % (Auto) 0.6, Nucleat RBC Rel Count 0.1, Neut # (Auto) 5.3, Lymph # (Auto) 2.0, [place] # (Auto) 0.6, Eos # (Auto) 0.3, [...] % (Auto) 68.5, Lymph % (Auto) 21.7, [place] % (Auto) 5.2, Eos % (Auto) 3.3, Baso % (Auto) 1.3, Nucleat RBC Rel Count 0.2, Neut # (Auto) 6.1, Lymph # (Auto) 1.9, [place] # (Auto) 0.5, Eos # (Auto) 0.3, [...] Cloudy A, Urine pH 7.0, Ur Specific [place] 1.010, Urine Protein 50 H, Urine Glucose [...] aneurysm and iliac aneurysm repair in the distantar[place]. Whether or not she has external compression [...] <Electronically signed by MD Yaniv Natarajan> 01/23/24 [address] [facility] Work Phone: 1(655) 750-974507-12-2024 Consult note Author Gita Azevedo [facility] January 23, 2024 12:19pm Note Date/Time January 23, 2024 11:1 9am [facility] [address] [place] [address] Nephrology Consult Note Signed Patient: Lexi Tatum MR#: [id number] : 1945 Acct:[id number] Age/Sex: 78 / F Adm Date: 4 Loc: Room: [address] [place] [address] Type: ADM IN Attending Dr: Norberto Pires [...] negative unless noted below or in HPI [facility] Medical History (Updated 01/23/24 @ 10:50 [...] 300 Mg Tablet) 300 mg PO DAILY [facility] Stop: 01/22/25 08:59 Last Admin: 01/23/24 07:59 Dose: 300 mg Atorvastatin Calcium (Atorvastatin 10 Mg Tablet) 10 mg PO QHS [facility] Stop: 01/21/25 21:59 Last Admin: 01/22/24 22:52 Dose: 10 mg Carvedilol (Carvedilol 25 Mg Tablet) 25 mg PO BID.WITH.MEALS [facility] Stop: 01/21/25 19:04 Last Admin: 01/23/24 07:59 Dose: 25 mg Dextrose (Dextrose 50% In Water 25 Gm/50 Ml Syringe) 0 gm IV-PUSH PRN PRN PRN Reason: Hypoglycemia Stop: 01/21/25 18:58 Docusate Sodium (Docusate 100 Mg Capsule) 100 mg PO BID [facility] Stop: 01/21/25 20:59 Last Admin: 01/22/24 22:53 [...] Ml) 1,000 mls @ 75 mls/hr IV .[id number] [facility] Stop: 01/21/25 18:59 Last Admin: 01/23/24 10:00 Dose: 100 mls/hr Insulin Aspart (Insulin Aspart 300 Units/3 Ml Insuln.Pen) 0 units SUBCUT TID.WM.HS [facility]; Protocol Stop: 01/21/25 21:59 Last Admin: 01/22/24 22:55 Dose: Not Given Insulin Glargine (Insulin Glargine 300 Units/3 Ml Insuln.Pen) 25 units SUBCUT QPM [facility] Stop: 01/21/25 20:59 Last Admin: 01/22/24 23:25 [...] Cloudy A Urine pH 7.0 Ur Specific [place] 1.010 Urine Protein 50 H Urine Glucose [...] Iraheta Jr., D.O.01/22/2024 4:28 PM Dictation Location: [place] [address] Any impression(s) listed above is documentation that [...] signed by MD Gita Azevedo> 01/23/24 [address] [facility] Work Phone: 1(226) 710-333407-11-2024 History and physical note Author Norberto Pires [facility] January 22, 2024 9:37pm Note Date/Time January 22, 2024 9:37 pm [facility] [address] [place] [address] Hospitalist H&P Signed Patient: Lexi Tatum MR#: [id number] : 1945 Acct:[id number] Age/Sex: 78 / F Adm Date: 4 Loc: Room: 4I6740-5 Type: ADM IN Attending Dr: Norberto Pires [...] 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 Review of Systems Review of Systems Review of systems: 10 systems are reviewed and are negative except as mentioned elsewhere in the documentation. [facility] Medical History (Updated 01/22/24 @ 21:34 by [...] History (Updated 01/22/24 @ 21:32 by Norberto Lindbloom, DO) Other Hypertension Social History Smoking Status: [...] % (Auto) 21.7 % (.) 01/22/24 15:18 [place] % (Auto) 5.2 % (.) 01/22/24 15:18 Eos % (Auto) 3.3 % (.) 01/22/24 15:18 Baso % (Auto) 1.3 % (.) 01/22/24 15:18 Nucleat RBC Rel Count 0.2 /100 WBC (0-0.5) 01/22/24 15:18 Neut # (Auto) 6.1 x10E3/uL (1.8-7.7) 01/22/24 15:18 Lymph # (Auto) 1.9 x10E3/uL (1.00-4.8) 01/22/24 15:18 [place] # (Auto) 0.5 x10E3/uL (0.0-0.8) 01/22/24 15:18 [...] pH 7.0 (5.0-9.0) 01/22/24 15:18 Ur Specific [place] 1.010 (1.001-1.030) 01/22/24 15:18 Urine Protein 50 [...] <Electronically signed by Norberto Pires DO> 01/22/242136 [facility] Work Phone: 1(315) 260-660603-06-2024 History of Present illness Narrative* Sahhrzad Morales MD - 09/17/2023 1:20 PM EST [...] normal. Allergies Williams inhibitors, Atorvastatin, Spironolactone, and Yqpoguu-pfl-cln reductase inhibitors Current Medications Current Outpatient Medications: [...] exam, discussion and plan. [facility]: 1(155) 683-667903-06-2024 Instructions* Patient Instructions* Kaleigh Funez LPN - [...] time of your visit. [facility] Work Phone: 1(819) 188-955802-27-2024 Note [id number]#1.00[facility] 09-09-2023 [id number]#1.00[facility]02-19-2024 [id number]#1.00[facility]01-31-2024 Evaluation note* Encounter Date Diagnosis Assessment [...] can see her 3 months after that. [facility] 09-14-2023 Evaluation note* Encounter Date Diagnosis [...] is considering changing from her current PCP [facility] 05-02-2023 Evaluation note* Encounter Date Diagnosis [...] Above note written by Ramandeep Aggarwal LPN, Relay Operator. Edited and approved by Dr. Ross [...] negative findings were considered in medical decision-making. [facility] Other 05-01-2017 History general Narrative - Reported* Type Description Date Medical History [place] Medical History Hyperlipiedmia Medical History PVD Medical History DM Medical History HTN Surgical History Open Heart 11/2016 Surgical History Cardiac Stent 09/2017 Surgical History Cardiac Stent 05/2017 Surgical History C- section 1960 Surgical History Rt iliac angioplasty & stent; Aortobiiliac bifurcation graft 07/20/18 Hospitalization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 4, GFR 15-29 ml/min Gout Hyperlipidemia [id number] Proteinuria Secondary hyperparathyroidism Type 2 diabetes mellitus with diabetic chronic kidney disease UTI (urinary tract infection) Chief Complaint Admit Date [facility] [place] [place] Acute metobolic encephalopaty, [place] March 05, 2024 [...] 1:13pm Anemia of renal disease March 22, 024 1:52pm CKD (chronic kidney disease) stage [...] 07, 2024 10:09am Chief Complaint Admit Date [facility] [place] [place] Acute metobolic encephalopaty, [place] March 05, 2024 [...] Sepsis due to urinary tract infection [place] ak[place] 2023 1:13pm Anemia of renal disease March [...] May 142023 10:32am Chief Complaint Admit Date [facility] [place] [place] Acute metobolic encephalopaty, [place] March 05, 2024 [...] May 20, 2024 9:55am Preoperative examination May 20, 2 024 9:55am Primary osteoarthritis of left hip Novem [...] 15-29 ml/min October 04, 2024 3:28pm Hypertension March 24th, 2025 3:2 8pm Osteoarthritis of left hip October [...] 2025 10:00am S/P total left hip arthroplasty [facility] r 2024 10:00am Chief Complaint Admit Date A1C [...] on chronic systolic (congestive) h eart failure Seme 1st, 2025 3:11pm CKD (chronic kidney disease) stage [...] 22, 2025 5:26pm [facility] S/P total left hip arthroplasty [facility] r 2024 5:26pm Steroid-induced hyperglycemia March 22, 2025 5:26pm Type 2 diabetes mellitus with hyperglyce [facility] March 22, 2025 5:26pm Chief Complaint Admit [...] 2025 10:00am left hip osteoarthritis s/p LIVIER [facility] r 2024 5:26pm left hip osteoarthritis s/p [facility] 2024 12:00am Amb Documentation April 04, [...] 3:29pm Type 2 diabetes mellitus with hyperglyce [facility] January 31, 2025 3:29pm Anemia of renal [...] March 10:00am S/P total left hip arthroplasty [facility] 2024 10:00am Weakness March 21, 2025 10:00am Acute on chronic systolic (congestive) h eart failure March 22, 2025 5:26pm CKD (chronic kidney disease) March 222024 5:26pm CKD (chronic kidney disease) stage 4, GF R 15-29 ml/min March 22, 2025 5:26pm Hyperlipidemia March 22, 2025 5:26pm Hypertension March 22, 2025 5:26pm Impaired mobility March 22, 2025 5:26pm PAD (peripheral artery disease) [facility] 2024 5:26pm S/P total left hip arthroplasty [facility] r 2024 5:26pm Steroid-induced hyperglycemia March 22, 2025 5:26pm Type 2 diabetes mellitus with hyperglyce [facility] March 22, 2025 5:26pm S/P total left hip arthroplasty [facility] r 2024 2:07pm Chief Complaint Admit Date A1C January 11, [...] POST OP LTHA April 06, 2025 2:07pm CHF, Elevated troponin April 07 025 11:35pm Reason for Visit Admit Date Acute on chronic systolic (congestive) h eart failure January 11, 2025 3:11pm CKD (chronic kidney disease) stage 4, GF R 15-29 ml/min January 11, 2025 3:11pm Hypertension January 11, 2025 3:11p m Morbid (severe) obesity due to excess ca lories January 11, 2025 3:11pm Osteoarthritis of left hip January 11 3:11pm Type 2 diabetes mellitus with hyperglyce [facility] January 11, 2025 3:11pm Acute on chronic [...] March 10:00am S/P total left hip arthroplasty [facility] r 2024 10:00am Weakness March 21, 2025 10:00am Acute on chronic systolic (congestive) h eart failure March 22, 2025 5:26pm CKD (chronic kidney disease) March 222024 5:26pm CKD (chronic kidney disease) stage 4, GF R 15-29 ml/min March 22, 2025 5:26pm Hyperlipidemia March 22, 2025 5:26pm Hypertension March 22, 2025 5:26pm Impaired mobility March 22, 2025 5:26pm PAD (peripheral artery disease) [facility] r 2024 5:26pm S/P total left hip arthroplasty [facility] 2024 5:26pm Steroid-induced hyperglycemia March 22, 2025 5:26pm Type 2 diabetes mellitus with hyperglyce [facility]ima March 22, 2025 5:26pm Aftercare following left hip joint repla cement surgery April 06, 2025 2:07pm S/P total left hip arthroplasty [facility] r 2024 2:07pm CHF exacerbation April 07, 2025 11:35pm CKD (chronic kidney disease) March 152024 11:35pm Coronary artery disease April 07, 2025 11:35pm Gout April 07, 2025 11:35pm Ischemic cardiomyopathy April 07, 2025 11:35pm Steroid-induced hyperglycemia April 07, 2025 11:35pm Type 2 diabetes mellitus wit h diabetic chronic kidney disease April 07, 2025 11:35pm Chief Complaint Admit Date Surgical Clearance January 31, 2025 3:29 pm [...] POST OP LTHA April 06, 2025 2:07pm CHF, Elevated troponin April 07, 2 025 11:35pm Unknown April 11, 2025 10:20am Reason for Visit Admit Date CKD (chronic kidney disease) stage 4, GF R 15-29 ml/min January 31, 2025 3:29pm Hypertension January 31, 2025 3:29 pm Osteoarthritis of left hip January 31 3:29pm Preoperative examination January 31, 2025 3:29pm Type 2 diabetes mellitus with hyperglyce mima January 31, 2025 3:29pm Acute on chronic systolic (congestive) h eart failure January 31, 2025 3:29pm Anemia of renal disease February 08, 2025 3:30pm CKD (chronic kidney disease) stage 4, GF R 15-29 ml/min February 08, 2025 3:30pm Hyperlipidemia February 08, 2025 3:30 pm Hypertensive chronic kidney disease with stage 1 through stage 4 chronic ki February 08, 2025 3:30pm Proteinuria February 08, 2025 3:30 pm Secondary hyperparathyroidism February 08, 2025 3:30pm Gout February 08, 2025 3:30 pm Type 2 diabetes mellitus wit h diabetic [...] 2024 10:00am Weakness March 21, 2025 10:00am CKD (chronic kidney disease) March 222024 5:26pm CKD (chronic kidney disease) stage 4, GF R 15-29 ml/min March 22, 2025 5:26pm Hyperlipidemia March 22, 2025 5:26pm Hypertension March 22, 2025 5:26pm Impaired mobility March 22, 2025 5:26pm PAD (peripheral artery disease) [facility] 2024 5:26pm S/P total left hip arthroplasty [facility] 2024 5:26pm Type 2 diabetes mellitus with hyperglyce mima March 22, 2025 5:26pm Acute on chronic systolic (congestive) h eart failure March 22, 2025 5:26pm Steroid-induced hyperglycemia March 22, 2025 5:26pm Aftercare following left hip joint repla cement surgery April 06, 2025 2:07pm S/P total left hip arthroplasty [facility] 2024 2:07pm CKD (chronic kidney disease) March 152024 11:35pm CHF exacerbation April 07, 2025 11:35pm Coronary artery disease April 07, 2025 11:35pm Gout April 07, 2025 11:35pm Ischemic cardiomyopathy April 07, 2025 11:35pm Steroid-induced hyperglycemia April 07, 2025 11:35pm Type 2 diabetes mellitus wit h diabetic chronic kidney disease April 07, 2025 11:35pm Additional Source Comments INFORMATION SOURCE (unrecogn ized section and content) DATE CREATED AUTHOR 12/31/2017 [facility] DATE CREATED AUTHOR AUTHOR'S ORGANIZ ATION 01/07/2018 [facility] DATE CREATED AUTHOR AUTHOR'S ORGANIZ ATION [facility]/17/2020 [facility] DATE CREATED AUTHOR AUTHOR'S ORGANIZ ATION 02/14/[address] [facility] DATE CREATED AUTHOR AUTHOR'S ORGANIZ ATION 07/26/2022 [facility] DATE CREATED AUTHOR AUTHOR'S ORGANIZ ATION 07/26/2022 [employer] DATE CREATED AUTHOR AUTHOR'S ORGANIZ ATION 02/28/2024 [facility] DATE CREATED AUTHOR AUTHOR'S ORGANIZ ATION 02/29/2024 [facility] DATE CREATED AUTHOR AUTHOR'S ORGANIZ ATION 03/01/2024 [facility] DATE CREATED AUTHOR AUTHOR'S ORGANIZ ATION 03/04/2024 [facility] DATE CREATED AUTHOR AUTHOR'S ORGANIZ ATION 03/07/2024 [facility] DATE CREATED AUTHOR AUTHOR'S ORGANIZ ATION 03/11/2024 [facility] DATE CREATED AUTHOR AUTHOR'S ORGANIZ ATION 05/16/2024 [facility] DATE CREATED AUTHOR AUTHOR'S ORGANIZ ATION 03/08/2025 [facility] DATE CREATED AUTHOR AUTHOR'S ORGANIZ ATION 04/18/2025 [facility] DATE CREATED AUTHOR AUTHOR'S ORGANIZ ATION 04/20/2025 [facility] DATE CREATED AUTHOR AUTHOR'S ORGANIZ ATION 04/21/2025 [facility] Care Teams (unrecognized sec [...] Team Status: Inactive Member Role Status Celia Lozano II, MD Attending Provider Active Start: June 28, 2024 End: June 28, 2024 Stefan Best MD Primary Care Provider Active Start: June 28, 2024 End: June 28, 2024 Team Status: Inactive Member Role Status Celia Bset MD Primary Care Provide r, Attending Provider Active Start: July 01, 2024 End: July 01, 2024 Gardenia Castellanos CMA Care Coordination Active S tart: July 01, 2024 End: July 01, 2024 Team Status: Inactive Member Role Status Celia Lozano II, MD Attending Provider Active Start: [...] Active Ross Colmenares MD Attending Provider Active 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 Relationship Specialty Start Date End Date Shahrzad Morales MD [address] [facility] [address] [place] [address] PCP - [facility] Attributed Provider 7/1/23 Stefan Best MD [address] [place] [address] PCP - General Family Medicine 09/17/23 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 Relationship Specialty Start Date End Date Shahrzad Morales MD [address] [facility] [address] [place] [address] PCP - [facility] Attributed Provider 01/11/23 Stefan Best MD [address] [place] [address] PCP - General Family Medicine 09/17/23 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 Relationship Specialty Start Date End Date Shahrzad Morales MD [address] [place] [address] [address] [place] [address] PCP - [facility] Attributed Provider 01/11/23 Stefan Best MD [address] [place] [address] PCP - General Family Medicine 09/17/23 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 Relationship Specialty Start Date End Date Shahrzad Morales MD [address] [facility] [address] [place] [address] PCP - [facility] Attributed Provider 01/11/23 Stefan Best MD [address] [place] [address] PCP - General Family Medicine 09/17/23 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 Relationship Specialty Start Date End Date Shahrzad Morales MD [address] [facility] [address] [place] [address] [facility] - [facility] Attributed Provider 01/11/23 Stefan Best MD [address] [place] [address] PCP - General Family Medicine 09/17/23 Team [...] April 07, 2024 End: April 07, 2024 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 Relationship Specialty Start Date End Date Stefan Best MD PCP - General Family Medicine 09/17/23 Team Status: Active Member Role Status Celia [...] 2025 End: March 22, 2025 Jacinda Taylor , LIANE Other Provider Active Start : March 21, 2025 End: March 22, 2025 Sherrie Yoder RN Other Provider Active Star t: March 21, 2025 End: March 22, 2025 Namrata Marshall RN Other Provider Active Start: S terezatevicky 2024 End: March 22, 2025 Selene Taylor RN Other Provider Active Start: Se pt2024 End: March 22, 2025 Kalyani Ferrari RN Other Provider Active Start: S nubia 2024 [...] Rivera MD Other Provider Active Start: S nubia 2024 End: March 22, 2025 Vandana Urbina [...] Jj Muniz MD Other Provider Active Start: Se pt2024 End: March 22, 2025 Aldair Leija MD Other Provider Active Start: Sep 2024 End: March 22, 2025 EWA Medrano Other Provider Active St art: March 21, 2025 End: March 22, 2025 Crissy Smith APRN Other Provider Active Star t: March 21, 2025 End: March 22, 2025 Dany Schroeder MD Other Provider Active Start: March 21, 2025 End: March 22, 2025 Hernan Mai MD Other Provider Active Start: pt2024 End: March 22, 2025 Markel Ledbetter MD [...] Barrera MD Other Provider Active Start: S terezatevicky 2024 End: March 22, 2025 Jagjit Atkinson [...] S eptember 2024 End: March 22, 2025 Earnest Noel MD Other Provider Active Start: March 21, 2025 End: March 22, 2025 Mason Flanagan MD Other Provider Active Start : March 21, 2025 End: March 22, 2025 Hill Marmolejo MD Other Provider Active Start: S eptevicky 2024 End: March 22, 2025 Maryana Walker APRN Other Provider Active Sta rt: March 21, 2025 End: March 22, 2025 Susanne Rodriguez APRN Other Provider Active Start: March 21, 2025 End: March 22, 2025 Lexi South RN Other Provider Active Start: 2024 End: March 22, 2025 Team Status: Active Member Role Status Dates Stefan Best MD Primary Care Provider Active Start: March 21, 2025 Da Lozano II, MD Other Provider Active S tart: March 21, 2025 Earnest Ferrari MD Other Provider Active Start: S 2024 Lily Yanes , LIANE Other Provider Active Star t: March 21, 2025 Jacinda Taylor RN Other Provider Active Start : March 21, 2025 Sherrie Yoder RN Other Provider Active Star t: March 21, 2025 Namrata Marshall RN Other Provider Active Start: S 2024 Selene Taylor RN Other Provider Active Start: pt2024 Kalyani Ferrari RN Other Provider Active Start: 2024 Trace Alvarez MD Other Provider Active Start: March 21, 2025 Clayton De La Cruz DO Other [...] Jj Muniz MD Other Provider Active Start: Se pt2024 Aldair Leija MD Other Provider Active Start: Sep tember 2024 Salud Cee , DRILLER OPERATOR-C Other Provider Active St art: March 21, 2025 Crissy Smith APRN Other Provider Active Star t: March 21, 2025 Dany Schroeder MD Other Provider Active Start: March 21, 2025 Hernan Mai MD Other Provider Active Start: Se pt2024 Markel Ledbetter MD Other Provider Active [...] Active S tart: March 21, 2025 Roberto Jiame DO Other Provider Active Start: March 21, 2025 Herman Bella MD Other Provider Active Start: March 21, 2025 Nithya Alvarado MD Other Provider Active Start: March Francisca Escudero APRN Other Provider Active Star t: March 21, 2025 Nishi Welsh MD Other Provider Active Start: S terezatevicky 2024 Earnest Noel MD Other Provider Active [...] Start : March 22, 2025 Sherrie Yoder , LIANE Other Provider Active Star t: March 22, 2025 Namrata Marshall , LIANE Other Provider Active Start: S eptember 2024 Selene Taylor , LIANE Other Provider Active Start: pt2024 Kalyani Ferrari RN Other Provider Active Start: [...] Rivera MD Other Provider Active Start: S eptember 2024 Vandana Urbina APRN Other Provider Active [...] NP-C Other Provider Active St art: March 22, 2025 Crissy Smith APRN Other Provider Active Star t: March 22, 2025 Dany Schroeder MD Other Provider Active Start: March 22, 2025 Hernan Mai MD Other Provider Active Start: Se ptember 2024 Markel Ledbetter MD Other Provider Active [...] Status: Active Member Role Status Dates Stefan Bset MD Primary Care Provider Active Start: March 29, 2025 Farhat Almeida MD Admit Provider Active Start: March 29, 2025 Farhat Alemida MD Attending Provider Active Start: March 29, 2025 Farhat Almeida MD Other Provider Active Start: March 29, 2025 Lily Yanes , LIANE Other Provider Active Star t: March 29, 2025 Jacinda Taylor , LIANE Other Provider Active Start : March 29, 2025 Sherrie Yoder RN Other Provider Active Star t: March 29, 2025 Namrata Marshall RN Other Provider Active Start: S eptember 2024 Selene Taylor RN Other Provider Active Start: pt2024 Kalyani Ferrari RN Other Provider [facility]: [facility] Trace Alvarez MD Other Provider Active Start: March 29, 2025 Clayton De La Cruz DO Other Provider Active Start : March 29, 2025 Stewart Osorio MD Other Provider Active Start : March 29, 2025 Norberto Pires DO Other Provider Active Start: March 29, 2025 Mateo Schaeffer MD Other Provider Active Start: March 29, 2025 Maxine Ovalle MD Other Provider Active Start : March 29, 2025 David Maher DO Other Provider Active St art: March 29, 2025 Mason Rivera MD Other Provider Active Start: [facility] 2024 Vandana Urbina APRN Other Provider Active [...] Hernan Mai MD Other Provider Active Start: Se ptember 2024 Markel Ledbetter MD Other Provider Active Star t: March 29, 2025 Chevy Espino DO Other Provider Active Start : March 29, 2025 Vy Ortiz APRN Other Provider Active Start: March 29, 2025 Jucie Mackenzie DO Other Provider Active Start: March [...] Active Sta rt: March 29, 2025 Susanne Rodriguez APRN Other Provider Active Start: March 29, 2025 Lexi South RN Other Provider Active Start: S eptember 2024 Team Status: Active Member Role Status Dates Stefan Best MD Primary Care Provider Active Start: April 04, 2025 Gardenia Castellanos CMA Attending Provider Active Start: April 04, 2025 Team Status: Inactive Member Role Status Dates Stefan Best MD Primary Care Provider Active Start: April 06, 2025 End: April 06, 2025 Da Lozano II, MD Attending Provider Active Start: April 06, 2025 End: April 06, 2025 Team Status: Active Member Role Status Dates Stefan Best MD Primary Care Provider Active Start: April 07, 2025 Chao Chapman MD Attending Provider Active St art: April 07, 2025 Team Status: Inactive Member Role Status Dates Stefan Best MD Primary Care Provider Active Start: April 07, 2025 End: April 09, 2025 Juice Mackenzie DO Admit Provider Active Start: April 07, 2025 End: April 09, 2025 Janelle Crandall RN Other Provider Active Star t: April 07, 2025 End: April 09, 2025 Montana Cobb DO Other Provider Active Start : April 07, 2025 End: April 09, 2025 Charlotte Cordon MD Other Provider Active Start: April 07, 2025 End: April 09, 2025 Saima Bae MD Other Provider Active St art: April 07, 2025 End: April 09, 2025 Angela Braun APRN Other Provider Active Start : April 07, 2025 End: April 09, 2025 Kandi Villeda MD Other Provider Active Start: Lesli savagetyler 2024 End: April 09, 2025 Elisa Walker [facility] Other Provider Active Sta rt: April 07, 2025 End: April 09, 2025 Mateo Schaeffer MD Attending Provider Active St art: April 07, 2025 End: April 09, 2025 Team Status: Active Member Role Status Dates Stefan Best MD Primary Care Provider Active Start: April 11, 2025 Robby Light DO Attending Provider Active Sta rt: April 11, 2025 Team Status: Inactive Member Role Status Dates Robby Light DO Attending Provider Active Sta rt: April 11, 2025 End: April 11, 2025 Goals (unrecognized section and content) Goals [...] Stress Test CHG MYOCARDIAL SPECT MULTIPLE STUDIES Shahrzad Morales MD [address] [facility] [address], [place] [id number] Referral ID Status Reason Start Date Expiration Date V isits Requested Visits Authorized [id number] Pending Review 09/17/2023 09/16/2024 5 5 Reason Comments Follow-up 8m Old WPM patient Specialty Diagnoses / Procedures Referred By Contac t Referred To Contact Cardiology Diagnoses Occlusion and stenosis of right carotid artery Procedures Follow Up In Cardiology Shahrzad Morales MD Smith, Donna K, [facility] [address] [facility] [address], [place] [phone] Phone: tel: fax: Referral ID Status Reason Start Date Expiration Date V isits Requested Visits Authorized [id number] Authorized 09/17/2023 09/16/2024 1 1 FOR RECORDS [...] BE BASED ON THE PRIMARY CLINICAL RECORDS. [facility]. provides no warranty or guarantee of the accuracy or completeness of information in this document.
[2025-05-02 11:00] LABS: Hematocrit 32.3 % (36.0-48.0); Hemoglobin 9.9 g/dL (12.0-16.0); Immature Granulocytes Abs Auto 0.04 10^3/uL (0.00-0.03); Immature Granulocytes Pct Auto 0.4 % (0.0-0.5); Lymphocytes Absolute Auto 1.5 10^3/uL (1.2-3.8); Mean Corpuscular HGB Conc 30.7 g/dL (29.9-35.2); Mean Corpuscular Hemoglobin 31.1 pg (26.7-34.0); Mean Corpuscular Volume 101.6 fL (81.0-99.0); Platelet Count 255 10^3/uL (150-450); Red Blood Count 3.18 10^6/uL (4.20-5.40); White Blood Count 10.0 10^3/uL (4.0-11.0)
[2025-05-02 11:16] LABS: SARS-CoV-2 Ag NEGATIVE (NEGATIVE)
[2025-05-02 11:29] LABS: Anion Gap 14.9; Blood Urea Nitrogen 70.0 mg/dL (7.0-18.0); Calcium 8.9 mg/dL (8.5-10.1); Carbon Dioxide 28.3 mmol/L (21.0-32.0); Chloride 91 mmol/L (98-107); Estimated GFR (African America 28 (>=60 mL/min/1.73m^2); Estimated GFR (Non-African Ame 23 (>=60 mL/min/1.73m^2); Glucose 182 mg/dL (74-106); Potassium 5.2 mmol/L (3.5-5.1); Sodium 129 mmol/L (136-145)
[2025-05-02 11:31] LABS: Lactate/Lactic Acid 1.0 mmol/L (0.4-2.0); Magnesium 2.4 mg/dL (1.8-2.4)
[2025-05-02 11:32] LABS: NT Pro B Type Natriuretic Pept 11105.0 pg/mL (<=1800.0)
--- NOTE | 2025-05-02 12:39 | CA_ITS ---
Patient Name: ESTHER TATUM MR#: [id number] : 1945 Exam Date: 05/02/2025 Ordering Doctor: ANGELA ARRIAGA ECHOCARDIOGRAM REPORT PROCEDURE: CA ECHO DOPPLER COMPLETE INDICATIONS: CHF exacerbation, CABGx3, cardiac stent, DE, hypertension, diabetes COMPARISON: None. DESCRIPTION: COMPLETE ECHOCARDIOGRAM Real-time transthoracic echocardiography with 2D, M-mode, spectral and color flow Doppler performed. QUALITY: Technical quality was good. LEFT VENTRICLE: Normal chamber size. Thickened septal wall. LV EF: Global left ventricular systolic function is normal; visually estimated ejection fraction is 55%. No significant wall motion abnormalities. DIASTOLIC: Grade II diastolic dysfunction. E/E' consistent with volume overload. ATRIAL SEPTUM: Inadequately seen. LEFT ATRIUM: Mild dilatation. RIGHT ATRIUM: Mild dilatation. RIGHT VENTRICLE: Poorly seen; appears enlarged. Decreased right ventricular systolic function. TRICUSPID VALVE: Normal mobility and thickness. Moderate regurgitation. Doppler studies reveal severely (>60) elevated right sided pressures. RVSP 67 mmHg MITRAL VALVE: Mildly thickened with normal mobility. No evidence of mitral valve stenosis. Mild mitral annular calcification. Moderate calcification of the chordae tendinae. Mild to moderate mitral regurgitation. AORTIC VALVE: Normal trileaflet appearance. Moderately thickened and calcified aortic valve. Mildly diminished mobility. No evidence of aortic valve stenosis. No aortic regurgitation. AORTIC ROOT: Normal diameter and appearance. Ascending aorta is normal in size. PULMONIC VALVE: Normal thickness and mobility. No stenosis. Mild regurgitation. PERICARDIUM: Anterior free space; likely fat pad versus trivial effusion. IVC: IVC is dilated (2.15 cm), does not fully collapse. CONCLUSION: 1. Global left ventricular systolic function is normal; Visually estimated ejection fraction is 55% 2. The right ventricle is poorly seen; it appears enlarged with reduced systolic function 3. Grade 2 diastolic dysfunction 4. E/E' consistent with volume overload 5. Biatrial dilatation 6. Moderate tricuspid regurgitation 7. Severely elevated right ventricular systolic pressure; RVSP 67 mmHg 8. Mild to moderate mitral regurgitation 9. Mild pulmonic regurgitation 10. Anterior free space; likely fat pad versus trivial effusion Adult Echocardiography Procedure Report Left Ventricle LVEDD (3.7 - 5.6 cm): 4.68 cm LVESD (2.2 - 4.0 cm): 3.45 cm LVIVS thickness (0.6 - 1.2 cm): 1.43 cm LVPW thickness (0.5 - 1.0 cm): 1.04 cm e': 0.07 m/s E - e': 15.16 LVOT Max Gradient: 2.35 mm[Hg] LVOT Area (cm2): 0.77 m/s Peak Velocity (LVOT): 0.77 m/s Mean Velocity (LVOT): 0.47 m/s LVOT Diameter 2.24 cm Left Ventricular Ejection Fraction: 53.36 % Left Atrium LA Volume Index (2D A2C): 41.36 ml/m2 Left Atrium Systolic Dimension: 3.33 cm Mitral Valve MV E to A Ratio: 1 Mitral Valve A-Wave Peak Velocity: 1.03 m/s Mitral Valve E-Wave Peak Velocity: 1.03 m/s Right Ventricle Aorta AO Root Diam: 3.09 cm Ascending Ao Diam: 2.32 cm Aortic Valve AoV Area (Peak Kel): 2.39 cm2, 2.39 cm2 AoV Area (VTI): 1.90 cm2, 1.90 cm2 Peak Velocity(Antegrade Flow): 1.27 m/s Peak Gradient(Antegrade Flow): 6.42 mm[Hg] Mean Velocity(Antegrade Flow): 0.97 m/s Mean Gradient(Antegrade Flow): 4.14 mm[Hg] Velocity Time Integral: 36.53 cm Tricuspid Valve Peak Velocity (Regurgitant Flow): 3.76 m/s Pulmonic Valve Mean Gradient: 1.39 mm[Hg], 0.95 mm[Hg] Mean Velocity: 0.55 m/s, 0.44 m/s Peak Velocity: 0.80 m/s Peak Gradient: 2.55 mm[Hg], 3.08 mm[Hg], 2.36 mm[Hg] Right Atrium Right Atrium Systolic Pressure: 78.37 ml, 78.37 ml Dictated by: Kylah Ma M.D. on 05/02/2025 at 16:27 Approved by: Kylah Ma M.D. on 05/02/2025 at 16:36
--- NOTE | 2025-05-02 13:03 | CT_ITS ---
The [address] [address] Patient Name: ESTHER TATUM MRN: [id number] date: 1945 Sex: F Assigned Patient Location: ER Current Patient Location: [place] Accession/Order Number: [id number] Exam Date: 05/02/2025 12:55 Report Date: 05/02/2025 13:36 At the request of: ANGELA ARRIAGA MD Procedure: CT chest wo con CT CHEST WITHOUT CONTRAST CLINICAL DATA: Shortness of breath with hypoxia. COMPARISON: Chest x-ray 05/02/2025 Spiral images were obtained through the chest without contrast. Images were reviewed using both narrow and wide window settings. This CT exam was performed using one or more following dose reduction techniques: Automated Exposure control, adjustment of the mA and/or kV according to patient size, or use of iterative reconstruction technique. There is prior median sternotomy. The heart is enlarged. No pericardial effusion is present. Coronary artery disease is seen. There is atherosclerotic plaque at the aorta and proximal great vessels. No aneurysm is identified. There are calcified mediastinal and left hilar lymph nodes. No other adenopathy is seen. There is mild distention of mid thoracic esophagus which contains fluid. Dextroscoliotic curvature and degenerative changes are present at the spine. There are small to moderate size layering pleural effusions. There is bilateral interstitial thickening and subtle groundglass density. There is compressive atelectasis adjacent to the effusions at the lower lobes. No other consolidation is present. No pneumothorax is noted. Limited imaging through the upper abdomen shows calcified splenic granulomas. CT/CT chest wo con IMPRESSION: CARDIOMEGALY WITH PLEURAL EFFUSIONS AND INTERSTITIAL THICKENING SUGGESTIVE OF FAILURE. CORRELATION IS RECOMMENDED. GRANULOMATOUS CHANGES. MODERATE ATHEROSCLEROTIC DISEASE. Impression dictated by: Zayra Juarez M.D. 05/02/2025 1:36 PM Dictation Location: [place] [address] Electronically authenticated by: [id number] Y Date: 05/02/2025 13:36
--- NOTE | 2025-05-02 13:03 | CT_ITS ---
The [address] [address] Patient Name: ESTHER TATUM MRN: [id number] date: 1945 Sex: F Assigned Patient Location: ER Current Patient Location: [place] Accession/Order Number: [id number] Exam Date: 05/02/2025 12:55 Report Date: 05/02/2025 13:29 At the request of: ANGELA ARRIAGA MD Procedure: CT head/brain wo con CT BRAIN WITHOUT CONTRAST: CLINICAL HISTORY: Increased confusion COMPARISON: None TECHNIQUE: Contiguous axial unenhanced images were obtained through the brain. This CT exam was performed using one or more following dose reduction techniques: Automated exposure control, adjustment of the mA and/or kV according to patient size, or use of iterative reconstruction technique. FINDINGS: There is some motion artifact. There is generalized atrophy. The ventricles are normal in size and position. Mild to moderate microvascular changes are noted. There are no additional areas of abnormal attenuation. There is no hemorrhage, mass effect or extra-axial collections. There is suspected empty sella. The imaged paranasal sinuses are clear. There is an inferior right mastoid air cell with mild mucosal thickening. Carotid siphon and vertebral artery plaque are visualized. CT/CT head/brain wo con IMPRESSION: ATROPHY AND CHRONIC MICROVASCULAR CHANGES. NO DEFINITE ACUTE INTRACRANIAL ABNORMALITY. Impression dictated by: Zayra Juarez M.D. 05/02/2025 1:29 PM Dictation Location: [place] [address] Electronically authenticated by: [id number] Y Date: 05/02/2025 13:29
[2025-05-02] MEDS: FUROSEMIDE 40 MG/4 ML VIAL IVP ×2 (13:05→17:03)
[2025-05-02 13:18] LABS: PCO2 VBG 44.6 mmHg (40.0-52.0); pH VBG 7.384 (7.330-7.430)
--- NOTE | 2025-05-02 13:37 | CT_ITS ---
The [address] [address] Patient Name: ESTHER TATUM MRN: [id number] date: 1945 Sex: F Assigned Patient Location: Current Patient Location: Accession/Order Number: [id number] Exam Date: 05/02/2025 14:35 Report Date: 05/02/2025 15:18 At the request of: ANGELA ARRIAGA MD Procedure: CT abdomen pelvis wo con CT ABDOMEN AND PELVIS WITHOUT CONTRAST COMPARISON: 04/11/2025 CLINICAL DATA: Complicated urinary tract infection. Spiral images were obtained through the abdomen and pelvis without contrast. This CT exam was performed using one or more following dose reduction techniques: Automated exposure control, adjustment of the mA and/or kV according to patient size, or use of iterative reconstruction technique. Limited cuts through the lung bases show enlarging layering pleural effusions with adjacent lower lobe atelectasis. Additional atelectasis and/or scarring is present. Evaluation of the intra-abdominal organs is slightly limited by the absence of contrast. Cholelithiasis is again seen. Subtle heterogeneity is again noted at the hepatic dome where a lesion is not excluded without contrast. There are calcified splenic granulomas. No acute pancreatic abnormalities are seen. There is fatty right adrenal mass suggesting a myelolipoma. Bilateral perinephric fibrofatty stranding is again visualized. Renovascular disease is present slightly limiting assessment. There might be at least one stone at the upper pole of the right kidney. Bilateral internal ureteral stents are again noted. There is also still some calyceal dilatation, increasing on the left and air within the collecting systems and ureters on both sides. There might be a cyst at the lower pole of left kidney, similar to the prior. There are no developing perinephric fluid collections suggesting abscess. There is atherosclerotic plaque involving the aorta and its branches. A bypass graft is suspected. A right external iliac stent is also seen. Tiny lymph nodes are visualized. No ascites is seen. There is subcutaneous edema, greater at the left flank. The small bowel loops are not disproportionately distended. Mild stool is visualized within the colon. There are some left-sided colonic diverticula. Levoscoliotic curvature and mild degenerative changes are present at the spine. Images through the pelvis are slightly limited by streak artifact from a left hip prosthesis. No dilated small bowel is visualized. There is mild distal colonic stool. There are a couple additional colonic diverticula, without associated active inflammation. There are uterine calcifications suggesting fibroid disease. The distal aspect of the internal ureteral stents are visualized adjacent to a Tovar catheter. The urinary bladder is not well-distended though it does contain some air. There is still minor perivesical stranding. There are patulous inguinal rings containing fat. No ascites is seen. There is subcutaneous edema. CT/CT abdomen pelvis wo con IMPRESSION: INCREASING BIBASILAR PLEURAL-PARENCHYMAL CHANGES. SIMILAR POSSIBLE HEPATIC DOME LESION. CHOLELITHIASIS. 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 CONTINUED MILD BILATERAL HYDRONEPHROSIS, GREATER ON THE LEFT. AIR WITHIN THE RENAL COLLECTING SYSTEMS, URETERS AND BLADDER. ALTHOUGH THIS COULD BE RELATED TO THE STENTS, INFECTION IS ALSO POSSIBLE. THERE IS NO OBVIOUS DEVELOPING PERINEPHRIC ABSCESS. MILD DIVERTICULOSIS. PROMINENT ATHEROSCLEROTIC DISEASE. FIBROID UTERUS. Impression dictated by: Zayra Juarez M.D. 05/02/2025 3:18 PM Dictation Location: [place] [address] Electronically authenticated by: [id number] Y Date: 05/02/2025 15:18
--- NOTE | 2025-05-02 13:37 | PM.IMHP1 ---
Internal Medicine - H&P: HPI History of Present Illness Chief complaint: WEAKNESS CHF Narrative: This is a 79 y.o female with past medical hx of CKD stage IV, frailty, CHF, gout, PAD, hypertension, recent admission for septic shock secondary to pyelonephritis with stents in the ureters were exchanged, retroperitoneal fibrosis, was discharged on cefuroxime. Patient is brought in from the care home and accompanied by her son who provided more history. She states that over the last few days she has been having confusion along with chills but no nausea or vomiting and complains of bilateral slight flank pain and urinary frequency and straining to urinate. She had a UA at the care home that was positive for UTI and she was upset about it stating that once I am off antibiotics I get the UTI back. She states that she was started on p.o. antibiotics not sure what exactly at the care home. However over the last 3 days she started complaining of shortness of breath and they had to increase her oxygen from 1 L to 2 L nasal cannula at the care home along with a dry cough. Denies any fever or exposure to sick contacts. Here in the ED, patient was hypoxic as were the ED documentation and signout was given albuterol and Atrovent and she improved with that. She denies to me any chest pain or palpitation or dizziness or lightheadedness. She denies any diaphoresis or vomiting but felt nauseous when I saw her in the room. Her labs in the ED did not show any leukocytosis and also showed stable hemoglobin. CMP showed sodium of 129, potassium 5.2, BUN of 70 with creatinine of 2.08. Her troponin was 17 but her BNP was 11,105 which is pretty much more elevated than her previous numbers. Chest x-ray did show evidence of fluid overload. Head CT was negative for acute pathology. CT chest without contrast showed cardiomegaly with pleural effusions and interstitial thickening suggestive failure. Patient to be admitted under hospital service for further workup and management Review of Systems ROS Status of ROS 10 or more systems reviewed and unremarkable except as noted in history and below [facility] Medical History (Updated 05/02/25 @ 13:45 by Nishi Welsh MD) CHF (congestive heart failure) ?I50.9 - Heart failure, unspecified (ICD-10) Gout ?M10.9 - Gout, unspecified (ICD-10) Peripheral arterial disease ?I73.9 - Peripheral vascular disease, unspecified (ICD-10) Stage 3b chronic kidney disease (CKD) ?N18.32 - Chronic kidney disease, stage 3b (ICD-10) HTN (hypertension) ?I10 - Essential (primary) hypertension (ICD-10) Surgical History S/P hip replacement ?Z96.649 - Presence of unspecified artificial hip joint (ICD-10) History of aortic bifurcation bypass graft ?Z95.828 - Presence of other vascular implants and grafts (ICD-10) S/P triple vessel bypass ?Z95.1 - Presence of aortocoronary bypass graft (ICD-10) History of 3 sections ?Z98.891 - History of uterine scar from previous surgery (ICD-10) Family History Brother Family history of cancer Mother Family history of hypertension Father Family history of myocardial infarction Other Family history of CHF (congestive heart failure) Family history of diabetes mellitus Social History Within the past year, how often did you have a drink containing alcohol: never Score interpretation: A score less than 3 is consistent with normal alcohol consumption. Smoking status: Former smoker Non-prescribed substance use: denies use Previous occupational history: disabled Highest level of school completed/degree received: high school graduate Are you now , , , , never or living with a partner: In a typical week, how many times do you talk on the telephone with family, friends, or neighbors: 3 or more times per week How often do you get together with friends or relatives: 3 or more times per week How often do you attend zoroastrian or jainism services: 4 or more times per year Little interest or pleasure in doing things: not at all Feeling down, depressed, or hopeless: not at all Feel stressed/tense/nervous/anxious/difficulty sleeping: not at all Do you think of yourself as: straight/heterosexual Gender Identity: female Meds Home Medications and Allergies Home Medications ?Medication ?Instructions ?Recorded ?Confirmed ?Type allopurinol 300 mg tablet 300 mg PO DAILY 08/30/23 05/02/25 History aspirin 81 mg tablet,delayed 81 mg PO DAILY 08/30/23 05/02/25 History release cholecalciferol (vitamin D3) 125 125 mcg PO .every other day 08/30/23 05/02/25 History mcg (5,000 unit) tablet clopidogrel 75 mg tablet 75 mg PO DAILY 08/30/23 05/02/25 History furosemide 40 mg tablet 40 mg PO QAM 08/30/23 05/02/25 History pantoprazole 20 mg tablet,delayed 20 mg PO .qd 04/11/25 05/02/25 History release carvedilol 3.125 mg tablet 3.125 mg PO BID #0 tabs 04/15/25 05/02/25 Rx cefuroxime axetil 250 mg tablet 250 mg PO BID 10 days #20 tabs 04/15/25 05/02/25 Rx ahbbycan-ntltwtk-bmmskjk 24 31 g PO Q15M PRN Hypoglycemia #0 04/15/25 05/02/25 Rx gram/31 gram oral gel grams (Insta-Glucose (with dextrin)) glucagon 1 mg solution for 1 mg IV Q15M PRN Hypoglycemia #0 ea 04/15/25 05/02/25 Rx injection (Glucagon Emergency Kit) acetaminophen 500 mg tablet 1,000 mg PO Q8H PRN fever or pain 05/02/25 05/02/25 History atorvastatin 20 mg tablet 20 mg PO BEDTIME 05/02/25 05/02/25 History gabapentin 100 mg capsule 100 mg PO BEDTIME 05/02/25 05/02/25 History insulin aspart U-100 100 unit/mL 3 - 15 unit subcut ACHS 05/02/25 05/02/25 History (3 mL) subcutaneous pen (Novolog FlexPen U-100 Insulin aspart) insulin glargine 100 unit/mL (3 25 unit subcut BEDTIME 05/02/25 05/02/25 History mL) subcutaneous pen (Lantus Solostar U-100 Insulin) ipratropium 0.5 mg-albuterol 3 mg 3 ml inhalation Q6H PRN shortness 05/02/25 05/02/25 History (2.5 mg base)/3 mL nebulization of breath or wheezing soln loperamide 2 mg capsule 2 mg PO Q6H PRN loose stool 05/02/25 05/02/25 History (Anti-Diarrheal (loperamide)) Allergies Allergy/AdvReac Type Severity Reaction Status Date / Time No Known Drug Allergies Allergy Verified 04/07/25 13:32 Exam Narrative Exam Narrative: General: Frail 79-year-old female, ill-appearing but not in acute distress. Pleasant and cooperative oriented x 3. Lying in bed Skin: Warm, dry, no pallor noted. Head: Normocephalic, atraumatic Neck: Supple, non-tender. No meningismus, mild JVD Eye: Pupils are equal, round and EOMI. No scleral icterus. Ears, Nose, Mouth, and Throat: Oral mucosa is moist Cardiovascular: Regular Rate and Rhythm without murmur, gallop or rub. Respiratory: Decreased bilateral air entry with bibasilar crackles and rhonchi, no wheezes. Patient saturating well on 2 L nasal cannula she does not use accessory muscles and not using abdominal wall muscles. She is not respiratory distress. Chest Wall: no tenderness, crepitus or subcutaneous emphysema Musculoskeletal: Bilateral 1+ pitting edema, intact peripheral pulses bilaterally. GI: Abdomen is soft, non-distended. Normal bowel sounds. No tenderness to palpation. No rebound, guarding, or rigidity noted. CVA tenderness is not present on exam. No signs of acute abdomen. No organomegaly Neurological: A&O x4, No cranial nerve dysfunction observed. No truncal ataxia but she is weak. Moves all extremities. Sensation intact. Constitutional Vital Signs, click to edit/add: Last Vital Signs Temp 97.6 F 05/02/25 09:56 Pulse 78 05/02/25 09:56 Resp 20 05/02/25 09:56 BP 164/91 H 05/02/25 12:12 Pulse Ox 96 05/02/25 10:21 O2 Del Method Nasal Cannula 05/02/25 10:21 O2 Flow Rate 2 05/02/25 10:21 Internal Medicine - H&P: Reslt Labs Labs: Short CBC 05/02/25 Range/Units 10:15 WBC 10.0 (4.0-11.0) 10^3/uL Hgb 9.9 L (12.0-16.0) g/dL Hct 32.3 L (36.0-48.0) % Plt Count 255 (150-450) 10^3/uL BMP 05/02/25 10:15 Sodium 129 L Potassium 5.2 H Chloride 91 L Carbon Dioxide 28.3 BUN 70.0 H Creatinine 2.08 H Glucose 182 H Calcium 8.9 Assessment and Plan Assessment and Plan (1) Acute exacerbation of CHF (congestive heart failure): (2) CKD (chronic kidney disease): (3) Pyelonephritis: (4) Gait instability: (5) Type 2 diabetes mellitus with diabetic neuropathy, unspecified: Plan Acute hypoxic respiratory failure in the setting of acute exacerbation of CHF (not sure if diastolic or systolic Complicated UTI, with significant history of previous Klebsiella UTI and stents exchange back in April 2025 No evidence of sepsis Frailty and debility - Admit patient to stepdown unit - Start IV Lasix 40 mg IV twice daily - Tovar to be placed and monitor I/os - Daily weights - Continue with her p.o. carvedilol - Start ceftriaxone 1 g every 24 hours given her recent urine culture results Klebsiella which was pansensitive - Urology consult given the stent that has not been exchanged as per son. Patient did have an appointment with Dr. Natarajan today however she did not make it as she came to the hospital -I ordered CT abdomen pelvis without contrast - PT/OT evaluation - Monitor renal function closely - HSQ for DVT prophylaxis - I reconciled her medication list - Full code, I discussed the goals of care with the patient and her son. They were updated in the chart
--- OUTSIDE RECORDS SUMMARY | 2025-05-02 13:37 | XMS_ITS | CCD ---
Author Organization [facility] Care Team Providers Care Patient Centered Care Specialist Name Role Phone CHAO CHAPMAN Unavailable Unavailable LEE, LI Unavailable Unavailable CHAO CHAPMAN Unavailable Unavailable LEE, LI Unavailable Unavailable PHYSICIAN, DEFAULT Unavailable Unavailable PHYSICIAN, DEFAULT Unavailable Unavailable Li Lee Unavailable Unavailable Unavailable ROSA, DR LI Conley Primary Care Unavailable LEE, DR LI Conley Admitting Unavailable LEE, DR LI Conley Attending Unavailable LEE, DR LI Conley Consulting Unavailable Lafayette, DR Ren Consulting Unavailable LEE, DR LI [...] DR MARKHAM Consulting Unavailable LEE, DR LI Conely Consulting Unavailable LEE, DR LI Conley Primary [...] Care Provider MD Ross Colmenares Attending Provider [phone] Ross Colmenares Unavailable Maxine Llanes Primary Care Physician [phone] Da Lozano II Unavailable [phone] Shahrzad Morales MD Unavailable [phone] Stefan Best MD Primary Care Provider MD Stefan Best Primary Care Provider MD Da Lozano II Attending Provider MD Alyssa Ramírez Emergency Provider [phone] DO Norberto Pires Admit Provider DO Rl Piresistopher Attending Provider MD Gita Azevedo Other Provider MD Yaniv Natarajan Other Provider Shraddha, TITLE INSURANCE AGENT Maxine L Attending Unavailable Shraddha, TITLE INSURANCE AGENT Maxine L Attending Unavailable Shraddha, TITLE INSURANCE AGENT Maxine L Attending Unavailable Shraddha, TITLE INSURANCE AGENT Maxine L Attending Unavailable Shraddha, TITLE INSURANCE AGENT Maxine L Attending Unavailable Shraddha, TITLE INSURANCE AGENT Maxine L Attending Unavailable COOK, Yaniv P Attending Unavailable Shraddha, TITLE INSURANCE AGENT Maxine L Attending Unavailable Shraddha, TITLE INSURANCE AGENT Maxine L Admitting Unavailable Shraddha, TITLE INSURANCE AGENT Maxine L Attending Unavailable Shraddha, TITLE INSURANCE AGENT Maxine L Admitting Unavailable COOK, Yaniv P Attending Unavailable COOK, Yaniv P Referring Unavailable COOKYaniv P Attending Unavailable Shraddha, TITLE INSURANCE AGENT Maxine L Attending Unavailable Shraddha, TITLE INSURANCE AGENT Maxine L Attending Unavailable Baljit Hawkins Attending Unavailable Damian RUSS Admitting Unavailable OJUKWU, Mbanefo Attending Unavailable OJUKWU, Mbanefo Admitting Unavailable STEFAN BEST Primary Care Physician Allison CHANCE Attending Unavailable KADE, Mbyokastafo Admitting Unavailable MD Stefan Best Primary Care Provider [phone] MD Stefan Best Attending Provider SHAHRZAD MORALES Referring Unavailable STEFAN BEST Primary Care Unavailable SHAHRZAD MORALES Referring Unavailable STEFAN BEST Primary Care Unavailable Stefan Best MD Attending Provider Stefan Best MD Primary Care Provider [phone] Yaniv Natarajan MD Attending Provider Stefan Best MD Attending Provider Da Lozano MD Attending Provider Stefan Best MD Primary Care Provider Stefan Best MD Primary Care Provider Sage MARLOW, Stefan Conley Attending Provider Da Lozano MD Attending Provider Sage MARLOW, Stefan Conley Primary Care Provider Stefan Best MD Attending Provider Stefan Best MD Primary Care Provider Yaniv Natarajan MD Attending Provider [phone] Stefan Best MD Attending Provider Stefan Best MD Attending Provider [phone] Stefan Best MD Primary Care Provider Da Lozano MD Attending Provider Leroy Ashby MD Attending Provider Stefan Best MD Primary Care Provider Stefan Best MD Attending Provider [phone] ANGELA BRAUN Attending Unavailable SHAHRZAD MORALES Referring Unavailable STEFAN BEST Primary Care Unavailable Da Lozano MD Other Provider Earnest Ferrari MD Other Provider Joaquín ROB, Lily Other Provider Unavailable Brandon ROB, Jacinda Other Provider Unavailable Sherrie Yoder RN Other Provider Unavailable Namrata Marshall RN Other Provider Unavailable Selene Taylor RN Other Provider Unavailable Kalyani Ferrari RN Other Provider Unavailable Trace Alvarez MD Other Provider Clayton DeL a Cruz DO Other Provider Stewart Osorio MD Other Provider Norberto Pires DO Other Provider Mateo Schaeffer MD Other Provider Maxine Ovalle MD Other Provider David Maher DO Other Provider [phone] Mason Rivera MD Other Provider Unavailable Vandana Urbina APRN Other Provider Serina Ruff MD Other Provider Nathan Gibson MD Other Provider Unavailable Los Ventura MD Other Provider Saimajesúslesli David RAVI Other Provider Jj Muniz MD Other Provider Liss MARLOW, Aldair Other Provider Coleman SILVER SOLUTION MIXER-C, Salud Ybarra Other Provider [phone] Crissy Smith APRN Other Provider Unavailable Dany [...] Provider Nithya Alvarado MD Other Provider [phone] Francisca Escudero APRN Other Provider Unavailable Nishi Welsh MD Other Provider Earnest Noel MD Other Provider Mason Flanagan MD Other Provider Hill Marmolejo MD Other Provider Denise BRAND, Maryana Dinero Other Provider Susanne Rodriguez APRN Other Provider [phone] Lexi South RN Other Provider Unavailable Elle MARLOW, Farhat Soliman Attending Provider Elle MARLOW, Farhat Soliman Admit Provider Elle MARLOW, Farhat Soliman Other Provider Mindy De Jesus APRN Attending Provider Gunnar RAVI, David Other Provider Unavailab Gardenia Lepe CMA Attending Provider Unavaila Stefan Momin MD Primary Care Provider Stefan Best MD Attending Provider Da Lozano MD Attending Provider Leroy Ashby MD Attending Provider Da Lozano MD Other Provider Earnest Ferrari MD Other Provider Joaquín RN, Lily Other Provider Unavailable Brandon RN, Jacinda Other Provider Unavailable Paresh RN, Sherrie Other Provider Unavailable Joanna RN, Namrata Other Provider Unavailable Brandon RN, Selene Other Provider Unavailable Vega ROB, Kalyani Other Provider Unavailable Trace Alavrez MD Other Provider Clayton De La Cruz [...] Provider Aldair Leija MD Other Provider Coleman SILVER SOLUTION MIXER-C, Salud Ybarra Other Provider Crissy Smith APRN [...] Unavaila haydee Chapman MD, Chao Attending Provider Juice Mackenzie DO Admit Provider Janelle Crandall RN Other Provider Unavailable Montana Cobb DO Other Provider Neris MARLOW, Charlotte Other Provider [phone] Saima Bae MD Other Provider Angela Braun APRN Other Provider [phone] Kandi Villeda MD Other Provider [facility]ise [facility] Other Provider Mateo Schaeffer MD Attending Provider Stefan Best MD Primary Care Provider Stefan Best MD Attending Provider [phone] Robby Light DO Attending Provider Yaniv NATARAJAN P Attending Unavailable Freddie NATARAJANory [...] Alaa Consulting Unavailable Jagjit Atkinson Consulting Unavailable Adidson, [place] Consulting Unavailable Herman Bella Consulting Unavailable [...] Consulting Unavailable Los Ventura Consulting Unavailable David aPtel Consulting Unavailable Jj Muniz Consulting Unavailable Aldair [...] Natarajan Attending Unavailable Yaniv Natarajan Admitting Unavailable [place] II, Da Artis Admitting Unavailabl e Sage, Stefan E Primary Care Unavailable [place] II, Da Artis Attending Unavailabl e Unavailable Primary Care Provider Unavaildarcy e Allergies Allergy Classification Reported Allergen(s) Allergy Type Date of Onset Reaction(s) Facility (15 sources) Angiotensin Converting Enzyme (Williams) Inhibitors; Translations: [WILLIAMS Inhibitors] Allergy to drug (finding) 3 Hyperkalemia, Other [facility] Repository (20 sources) atorvastatin; Translations: [atorvastatin] Drug Allergy 3 Myalgia [facility] (13 sources) Hmg-Coa Reductase Inhibitors (Statins); Translations: [Statins] Allergy to drug (finding) Myalgia [place] [address] DO Work Phone: (5 sources) rosuvastatin; Translations: [rosuvastatin] Drug Allergy My[facility] [place] [address] DO Work Phone: (20 sources) Spironolactone; Translations: [spironolactone] Drug Allergy 3 Other [place] [address] DO Work Phone: (1 source) Iodine (And Iodine Containting Drugs) Drug allergy (disorder) [facility] Repository (1 source) Pravastatin Drug Allergy [facility] Repository (2 sources) Simvastatin Drug Allergy [facility] Repository (1 source) Sulfonamides (Antibiotic) Drug allergy (disorder) [facility] Repository (6 sources) Adhesive Tape Drug allergy rash [facility] Other (11 sources) Pravastatin; Translations: [pravastatin] Drug Allergy Unknown [facility] (12 sources) Angiotensin-conv erting enzyme inhibitor agent Drug Allergy 3 Other [facility] (14 sources) HMG-CoA reductase inhibitor; Translations: [OBORXWF-YYL-UOF REDUCTASE INHIBITORS] Drug Allergy 3 Myalgia [facility] Work Phone: (20 sources) Adhesive Tape; Translations: [adhesive tape] Allergy to substance 4 rash [facility] (20 sources) blue dye; Translations: [blue dye] Allergy to substance 4 Nausea [facility] Comment on above: dye used with xray c auses patient to vomit (20 sources) semaglutide; Translations: [semaglutide] Allergy to substance 4 nausea, vomiting [facility] Medications Current Medications Medication Drug Class(es) [...] 12 cap(s), Refills(s) 0, Pharmacy: [facility] 1155, 150, cm, 02/26/24 17:34:00 EDT, [...] needed, # 15 mL, Refills(s) 1, Pharmacy: [facility], 143, cm, 08/20/23 16:15:00 EST, Height/Length [...] Oral, # 30 tab(s), Refills(s) 5, Pharmacy: [facility]5, 143, cm, 08/20/23 [...] docusate sodium 50 mg / traci osides, nursing home 8.6 mg oral tablet (7 sources) Start: [...] Start: 06-15-2021 take 1 capsule by mo [facility] twice daily Gabapentin 300 MG Oral Capsule [...] 25, 2017 11:51am take 1 capsule by [facility] every twenty-four hours Gabapentin 300 MG [...] scale, # 15 mL, Refills(s) 3, Pharmacy: [facility], 143, cm, 08/20/23 16:15:00 EST, Height/Length [...] Daily, # 45 mL, Refills(s) 2, Pharmacy: [facility], 143, cm, 08/20/23 16:15:00 EST, [...] daily, # 15 mL, Refills(s) 0, Pharmacy: [place] [id number] Start Date: 02/07/23 Status: Ordered Start: 01-31-2021 [...] scale, # 15 mL, Refills(s) 2, Pharmacy: [facility] 1155, 143, cm, 08/20/23 16:15:00 EST, [...] Quantity: 60 Refills: 0 Ordered: 19-Dec-2016 [employer], Veronica Active Multiple Vitamins/Minerals TABS (10 [...] Start: 03-09-2025 End: 04-06-2025 polyethylene glycol 3350 17744 mg powder for oral solution (7 sources) [...] disease, unspecified; Translations: [Atherosclerotic heart disease of [place] coronary artery without angina pectoris] Onset: 8 [...] current use of drug therapy; Translations: [Other pen[facility]entiary (current) drug therapy] Onset: 4 11-24-2023 Episodic Other aftercare (3 sources) terminologist (current) use of insulin; Translations: [nursing home (current) use of insulin (Multi)] Onset: [...] Unclassified (2 sources) Athscl heart disease of [place] coronary artery w/o ang pctrs / I25.10(ICD-9) [...] Anion gap [Moles/Vol] 9 mmol/L Normal -15 [facility] Comment on above: Order Comment: CALL doctor [id number] tel. [phone], FAX: [phone] CALL doctor L9755 tel. [phone], FAX: [phone] Performed By: #### B MP #### [facility] [address] [place] [id number] Calcium [Mass/Vol] 9.3 mg/dL Normal 8.5-9.9 [facility] Comment on above: Order Comment: CALL doctor [id number] tel. [phone], FAX: [phone] CALL doctor L9755 tel. [phone], FAX: [phone] Performed By: #### B MP #### [facility] [address] [place] [address] Chloride [Moles/Vol] 99 mmol/L Normal 95-107 [facility] Comment on above: Order Comment: CALL doctor [id number] tel. [phone], FAX: [phone] CALL doctor L9755 tel. [phone], FAX: [phone] Performed By: #### B MP #### [facility] [address] [place] [address] CO2 [Moles/Vol] 30 mmol/L Normal 20-31 [facility] Comment on above: Order Comment: CALL doctor [id number] tel. [phone], FAX: [phone] CALL doctor L9755 tel. [phone], FAX: [phone] Performed By: #### B MP #### [facility] [address] [place] [address] Creatinine [Mass/Vol] 2.00 mg/dL Critically high 0.50-0.90 [facility] Comment on above: Order Comment: CALL doctor [id number] tel. [phone], FAX: [phone] CALL doctor L9755 tel. [phone], FAX: [phone] Performed By: #### B MP #### [facility] [address] [place] [address] GFR 24.8 Low >60 [facility] Comment on above: Order Comment: CALL doctor L9755 tel. [phone], FAX: [phone] CALL doctor L9755 tel. [phone], FAX: [phone] Result Comment: Pedi atric calculator link https://www.kidney.org/professionals/kdoqi/gfr_calculatorped [...] secretion. Performed By: #### B MP #### [facility] [address] [place] [address] Glucose [Mass/Vol] 145 mg/dL Critically high 70-99 M [facility] Comment on above: Order Comment: CALL doctor [id number] tel. [phone], FAX: [phone] CALL doctor L9755 tel. [phone], FAX: [phone] Performed By: #### B MP #### [facility] [address] [place] [address] Potassium [Moles/Vol] 4.6 mmol/L Normal 3.4-4.9 [facility] Comment on above: Order Comment: CALL doctor [id number] tel. [phone], FAX: [phone] CALL doctor L9755 tel. [phone], FAX: [phone] Performed By: #### B MP #### [facility] [address] [place] [address] Sodium [Moles/Vol] 138 mmol/L Normal 135-144 [facility] Comment on above: Order Comment: CALL doctor L9755 tel. [phone], FAX: [phone] CALL doctor L9755 tel. [phone], FAX: [phone] Performed By: #### B MP #### [facility] [address] [place] [address] Urea nitrogen [Mass/Vol] 35 mg/dL Critically high 8-23 [facility] Comment on above: Order Comment: CALL doctor L9755 tel. [phone], FAX: [phone] CALL doctor L9755 tel. [phone], FAX: [phone] Performed By: #### B MP #### [facility] [address] [place] [address] CBC With Platelet No Differe ntialon 04-17-2025 Erythrocyte distribution width (RBC) [Ratio] 16.7 % Critically high 11.5-14.5 [facility] Comment on above: Order Comment: CALL doctor [id number] tel. [phone], FAX: [phone] CALL doctor L9755 tel. [phone], FAX: [phone] Performed By: #### C BCND #### [facility] [address] [place] [address] Hematocrit (Bld) [Volume fraction] 35.8 % Low 37.0-47.0 [facility] Comment on above: Order Comment: CALL doctor L9755 tel. [phone], FAX: [phone] CALL doctor L9755 tel. [phone], FAX: [phone] Performed By: #### C BCND #### [facility] [address] [place] [address] Hemoglobin (Bld) [Mass/Vol] 10.4 g/dL Low 12.0-16.0 [facility] Comment on above: Order Comment: CALL doctor L9755 tel. [phone], FAX: [phone] CALL doctor L975 tel. [phone], FAX: [phone] Performed By: #### C BCND #### [facility] [address] [place] [address] MCH (RBC) [Entitic mass] 31.5 pg Critically high 27.0-31.3 [facility] Comment on above: Order Comment: CALL doctor L9755 tel. [phone], FAX: [phone] CALL doctor L975 tel. [phone], FAX: [phone] Performed By: #### C BCND #### [facility] [address] [place] [address] MCHC 29.1 % Low 33.0-37.0 [facility] Comment on above: Order Comment: CALL doctor L9755 tel. [phone], FAX: [phone] [facility] tel. [phone], FAX: [phone] Performed By: #### C BCND #### [facility] [address] [place] [address] MCV (RBC) [Entitic vol] 108.5 fL Critically high 79.4-94.8 [facility] Comment on above: Order Comment: CALL doctor L9755 tel. [phone], FAX: [phone] CALL doctor L9755 tel. [phone], FAX: [phone] Performed By: #### C BCND #### [facility] [address] [place] [address] Platelets (Bld) [#/Vol] 309 10*3/uL Normal 130-400 [facility] Comment on above: Order Comment: CALL doctor L9755 tel. [phone], FAX: [phone] CALL doctor L9755 tel. [phone], FAX: [phone] Performed By: #### C BCND #### [facility] [address] [place] [address] RBC (Bld) [#/Vol] 3.30 10*6/uL Low 4.20-5.40 [facility] Comment on above: Order Comment: CALL doctor L9755 tel. [phone], FAX: [phone] CALL doctor L9755 tel. [phone], FAX: [phone] Performed By: #### C BCND #### [facility] [address] [place] [address] WBC (Bld) [#/Vol] 7.1 10*3/uL Normal 4.8-10.8 [facility] Comment on above: Order Comment: CALL doctor L9755 tel. [phone], FAX: [phone] CALL doctor L9755 tel. [phone], FAX: [phone] Performed By: #### C BCND #### [facility] [address] [place] [address] HMHP CBC WITH PLATELET NO DI FFERENTIALon 04-17-2025 Erythrocyte distribution width (RBC) [Ratio] 16.7 % High 11.5 - 14.5 % [facility] Hematocrit (Bld) [Volume fraction] 35.8 % Low 37.0 - 47.0 % [facility] Hemoglobin (Bld) [Mass/Vol] 10.4 g/dL Low 12.0 - 16.0 g/dL [facility] Interpretation and review of laboratory results Abnormal [facility] MCH (RBC) [Entitic mass] 31.5 pg High 27.0 - 31.3 pg [facility] MCV (RBC) [Entitic vol] 108.5 fL High 79.4 - 94.8 fL [facility] MLR MCHC 29.1 % Low 33.0 - 37.0 % [facility] MLR PLATELET COUNT 309 K/uL 130 - 400 K/uL NO [facility] MLR RBC 3.3 Low [facility] WBC (Bld) [#/Vol] 7.1 10*3/uL 4.8 - 10.8 K/uL N [facility] CALL doctor [id number] tel. [phone], FAX: [phone] CALL doctor L9755 tel. [phone], FAX: [phone] [facility] proBNPon 04-17-2025 Natriuretic peptide B (Bld) [Mass/Vol] 60902 pg/mL Normal [facility] Comment on above: Order Comment: CALL doctor L9755 tel. [phone], FAX: [phone] CALL doctor L9755 tel. [phone], FAX: [phone] Result Comment: NT-p ro BNP ACUTE Interpretive [...] 2006;27:330-337 Performed By: #### B NPPR #### [facility] [address] [place] [address] Basophils Auto (Bld) [#/Vol] Ordered By: Robby Light on 04-11-2025 Basophils (Bld) [#/Vol] 0.0 10 3/uL 0.0-0.1 [facility] Basophils/100 WBC Auto (Bld) Ordered By: Robby Light on 04-11-2025 Basophils/100 WBC (Bld) 0.2 % 0.2-2.0 [facility] Eosinophils/100 WBC Auto (Bl d)Ordered By: Robby Light on 04-11-2025 Eosinophils/100 WBC (Bld) 1.8 % 0.9-7.0 [facility] Erythrocyte distribution wid th Auto (RBC) [Ratio]Ordered By: Robby Light on 04-11-2025 Erythrocyte distribution width (RBC) [Ratio] 17.3 % High 11.0-15.0 [facility] Glomerular filtration rate ( GFR) estimation in non- AmericanOrdered By: Robby Light on 04-11-2025 GFR/1.73 sq M.predicted among non-blacks MDRD (S/P/Bld) [Vol rate/Area] 15 mL/min/{1.73_m2} Low >=60 mL/min/1.73m 2 [facility] Hematocrit Auto (Bld) [Volum e fraction]Ordered By: Robby Light on 04-11-2025 Hematocrit (Bld) [Volume fraction] 36.3 % 36.0-48.0 [facility] Hemoglobin [Mass/volume] in BloodOrdered By: Robby Light on 04-11-2025 Hemoglobin (Bld) [Mass/Vol] 10.7 g/dL Low 12.0-16.0 [facility] Leukocytes [#/volume] correc suzi for nucleated erythrocytes in Blood by Automated counOrdered By: Robby Light on 04-11-2025 WBC corrected for nucl RBC Auto (Bld) [#/Vol] 8.2 10 3/uL 4.0-11.0 [facility] Lymphocytes Auto (Bld) [#/Vo l]Ordered By: Robby Light on 04-11-2025 Lymphocytes (Bld) [#/Vol] 1.3 10 3/uL 1.2-3.8 [facility] Lymphocytes/100 WBC Auto (Bl d)Ordered By: Robby Light on 04-11-2025 Lymphocytes/100 WBC (Bld) 15.5 % Low 20.5-60.0 [facility] MCH Auto (RBC) [Entitic mass ]Ordered By: Robby Light on 04-11-2025 MCH (RBC) [Entitic mass] 32.0 pg 26.7-34.0 [facility] MCHC Auto (RBC) [Mass/Vol]Or dered By: Robby Light on 04-11-2025 MCHC (RBC) [Mass/Vol] 29.5 g/dL Low 29.9-35.2 [facility] MCV Auto (RBC) [Entitic vol] Ordered By: Robby Light on 04-11-2025 MCV (RBC) [Entitic vol] 108.7 fL High 81.0-99.0 [facility] Monocytes Auto (Bld) [#/Vol] Ordered By: Robby Light on 04-11-2025 Monocytes (Bld) [#/Vol] 0.8 10 3/uL 0.3-0.8 [facility] Monocytes/100 WBC Auto (Bld) Ordered By: Robby Light on 04-11-2025 Monocytes/100 WBC (Bld) 9.3 % 1.7-12.0 [facility] Neutrophils Auto (Bld) [#/Vo l]Ordered By: Robby Light on 04-11-2025 Neutrophils (Bld) [#/Vol] 6.0 10 3/uL 1.4-6.5 [facility] Neutrophils/100 WBC Auto (Bl d)Ordered By: Robby Light on 04-11-2025 Neutrophils/100 WBC (Bld) 73.0 % 43.0-75.0 [facility] No Panel InformationOrdered By: Trace Alvarez on 04-11-2025 1.4 mmol/L 0.4-2.0 [facility] 16.41 mg/dL High <=0.50 [facility] No Panel InformationOrdered By: Robby Light on 04-11-2025 134.7 pg/mL Critically high 4.0-51.3 [facility] ALREADY ORDERED [facility] NONE SEEN #/LPF NONE/RARE [facility] None Seen #/HPF None Seen [facility] LARGE #/HPF Abnormal NONE SEEN [facility] COLOR INTERFERENCE Abnormal 5.0-9.0 [facility] CLOUDY Abnormal CLEAR [facility] DK RED Abnormal YELLOW [facility] COLOR INTERFERENCE mg/dL Abnormal NEG/TRACE [facility] NONE SEEN NONE SEEN [facility] >100 #/HPF Abnormal 0-2 [facility] 1.030 Abnormal 1.005-1.025 [facility] COLOR INTERFERENCE EU/dL Abnormal 0.2-1.0 [facility] 75-100 #/HPF Abnormal NONE SEEN [facility] 16.0 [facility] 49.0 mg/dL High 7.0-18.0 [facility] 0.2 10 3/uL 0.0-0.7 [facility] 9.0 mg/dL 8.5-10.1 [facility] 100 mmol/L 98-107 [facility] 29.1 mmol/L 21.0-32.0 [facility] 3.07 mg/dL High 0.55-1.02 [facility] 0.02 10 3/uL 0.00-0.03 [facility] 18 Low >=60 mL/min/1.73m 2 [facility] 0.2 % 0.0-0.5 [facility] 132 mg/dL High 74-106 [facility] 4.9 mmol/L 3.5-5.1 [facility] 138 mmol/L 136-145 [facility] Platelet mean volume Auto (B ld) [Entitic vol]Ordered By: Robby Light on 04-11-2025 Platelet mean volume (Bld) [Entitic vol] 9.8 fL 9.5-13.5 [facility] Platelets Auto (Bld) [#/Vol] Ordered By: Robby Light on 04-11-2025 Platelets (Bld) [#/Vol] 192 10 3/uL 150-450 [facility] RBC Auto (Bld) [#/Vol]Ordere d By: Robby Light on 04-11-2025 RBC (Bld) [#/Vol] 3.34 10 6/uL Low 4.20-5.40 [facility] Serum or plasma anion gap de terminationOrdered By: Robby Light on 04-11-2025 Anion gap [Moles/Vol] 13.8 mmol/L [facility] Urine Cultureon 04-11-2025 Bacteria identified Cx Nom (U) Normal [facility] Comment on above: Performed By: #### C UU ####[facility] [address] [place] [address] [employer] [facility] Capillary blood glucose lei urement by glucometer (mass/volume)Ordered By: Mateo Schaeffer on 04-09-2025 Glucose [Mass/Vol] 238 mg/dL Normal [facility] Comment on above: Result Comment: [place] Glucose Reference Range is dependent on time and content of last meal. Glucose of more than 200 mg/dL in a nonstressed, ambulatory subject supports the diagnosis of Diabetes Mellitus.PERFORMED BY:[address] [place], [place] [phone] MEDICAL JULIAN PADILLA M.D. Performed By: #### G LULS ####Point of Care testing, Glucose Poct Glucometerson 0 04-09-2025 Glucose [Mass/Vol] 169 mg/dL Normal [facility] Comment on above: Result Comment: [place] Glucose Reference Range is dependent on time and content of last meal. Glucose of more than 200 mg/dL in a nonstressed, ambulatory subject supports the diagnosis of Diabetes Mellitus.PERFORMED BY:[place] [address] [place], [place] [phone] MEDICAL JULIAN PADILLA M.D. Performed By: #### G LULS ####Point of Care testing, Glucose [Mass/Vol] 192 mg/dL Normal [facility] Comment on above: Result Comment: [place] Glucose Reference Range is dependent on time and content of last meal. Glucose of more than 200 mg/dL in a nonstressed, ambulatory subject supports the diagnosis of Diabetes Mellitus.PERFORMED BY:[place] [address] [place], [place] [phone] MEDICAL JULIAN PADILLA M.D. Performed By: #### G DALLIN ####Point of Care testing, A1C with Estimated Average Arielle valera 04-08-2025 Glucose [Mass/Vol] 151 mg/dL Normal [facility] Comment on above: Result Comment: PERF ORMED BY:[place] [place], [place] [phone] MEDICAL JULIAN PADILLA M.D. Performed By: #### L IPID, A1C WTH eA, HS TROP, BMP, CBC, MG ####[place] [id number] [facility] Basic Metabolic Panelon 03-15 Creatinine Clr Calc Pharmacy 25.86 Normal [facility] Comment on above: Performed By: #### L IPID, A1C WTH eA, HS TROP, BMP, CBC, MG ####[address] GFR/1.73 sq M.predicted MDRD (S/P/Bld) [Vol rate/Area] 31.652 mL/min/{1.73_m2} Normal [facility] Comment on above: Performed By: #### L IPID, A1C WTH eA, HS TROP, BMP, CBC, MG ####[address] Basophils [#/volume] in Bloo d by Automated countOrdered By: Juice Mackenzie on 04-08-2025 Basophils (Bld) [#/Vol] 0.0 10*3/uL Normal 0.0-0.2 [facility] Comment on above: Result Comment: PERF ORMED BY:[address] [place], [place] [phone] CHRISTOPHER PADILLA M.D. Performed By: #### L IPID, A1C WTH eA, HS TROP, BMP, CBC, MG ####[place] [id number] [facility] Basophils/100 leukocytes in Blood by Automated countOrdered By: Juice Mackenzie on 04-08-2025 Basophils/100 WBC (Bld) 0.7 % Normal . [facility] Comment on above: Performed By: #### L IPID, A1C WTH eA, HS TROP, BMP, CBC, MG ####[place] [address] [place] [id number] [facility] Blood estimated average gluc ose determination by estimation from glycated hemoglobinOrdered By: Juice Mackenzie on 04-08-2025 Average glucose Estimated from glycated hemoglobin (Bld) [Mass/Vol] 151 mg/dL [facility] Calcium [Mass/volume] in Ser um or PlasmaOrdered By: Juice Mackenzie on 04-08-2025 Calcium [Mass/Vol] 8.8 mg/dL Normal 8.6-10.3 [facility] Comment on above: Performed By: #### L IPID, A1C WTH eA, HS TROP, BMP, CBC, MG ####[place] [address] [address] [place] [id number] [facility] Carbon dioxide, total [Moles /volume] in Serum or PlasmaOrdered By: Juice Mackenzie on 04-08-2025 CO2 [Moles/Vol] 33.2 mmol/L High 21.0-31.0 [facility] Comment on above: Performed By: #### L IPID, A1C WTH eA, HS TROP, BMP, CBC, MG ####[place] [address] [place] [id number] [place] Chloride [Moles/volume] in S paloma or PlasmaOrdered By: Jucie Mackenzie on 04-08-2025 Chloride [Moles/Vol] 101 mmol/L Normal 98-107 [facility] Comment on above: Performed By: #### L IPID, A1C WTH eA, HS TROP, BMP, CBC, MG ####[facility] [place] [phone] [place] Cholesterol [Mass/volume] in Serum or PlasmaOrdered By: Juice Mackenzie on 04-08-2025 Cholesterol [Mass/Vol] 126 mg/dL Low 140-200 [facility] Comment on above: Result Comment: Chol less than 200 mg/dl low risk Chol 201-239 mg/dl borderline risk Chol 240 mg/dl and greater high risk Performed By: #### L IPID, A1C WTH eA, HS TROP, BMP, CBC, MG ####[facility] [address] [place] [address] [facility] Cholesterol in HDL [Mass/vol ume] in Serum or PlasmaOrdered By: Juice Mackenzie on 04-08-2025 Cholesterol in HDL [Mass/Vol] 34 mg/dL Normal 23-92 [facility] Comment on above: Result Comment: HDL CHOL ATP-III CLASSIFICATION Cardiovascular Risk HDL > or equal to 60 mg/dL LOW HDL < 40 mg/dL HIGH Performed By: #### L IPID, A1C WTH eA, HS TROP, BMP, CBC, MG ####[facility] [address] [place] [address] [facility] Cholesterol in LDL Calc [Mas s/Vol]Ordered By: Juice Mackenzie on 04-08-2025 Cholesterol in LDL [Mass/Vol] 54 mg/dL 0-100 [facility] Cholesterol in VLDL Calc [Ma ss/Vol]Ordered By: Juice Mackenzie on 04-08-2025 Cholesterol in VLDL [Mass/Vol] 38 mg/dL [facility] Complete Blood Count Auto Di ffon 04-08-2025 Mean Corpuscular HGB Conc 32.0 g/dL Normal 32.0-35.0 [facility] Comment on above: Performed By: #### L IPID, A1C WTH eA, HS TROP, BMP, CBC, MG ####[facility] [address] [place] [address] [place] NRBC% 0.2 /100{WBC} Normal 0-0.5 [facility] Comment on above: Performed By: #### L IPID, A1C WTH eA, HS TROP, BMP, CBC, MG ####[facility] [address] [place] [address] [facility] White Blood Count 7.1 [CFU]/mL Normal 3.8-11.6 [facility] Comment on above: Performed By: #### L IPID, A1C WTH eA, HS TROP, BMP, CBC, MG ####[address] Creatinine [Mass/volume] in Serum or PlasmaOrdered By: Juice Mackenzie on 04-08-2025 Creatinine [Mass/Vol] 1.64 mg/dL High 0.60-1.20 [facility] Comment on above: Performed By: #### L IPID, A1C WTH eA, HS TROP, BMP, CBC, MG ####[place] [address] [place] [phone] [facility] ECH echo transthoracicon ECH echo transthoracic Normal [facility] Eosinophils [#/volume] in Bl ood by Automated countOrdered By: Juice Mackenzie on 04-08-2025 Eosinophils (Bld) [#/Vol] 0.2 10*3/uL Normal 0.0-0.45 [facility] Comment on above: Performed By: #### L IPID, A1C WTH eA, HS TROP, BMP, CBC, MG ####[address] Eosinophils/100 leukocytes i n Blood by Automated countOrdered By: Juice Mackenzie on 04-08-2025 Eosinophils/100 WBC (Bld) 2.6 % Normal . [facility] Comment on above: Performed By: #### L IPID, A1C WTH eA, HS TROP, BMP, CBC, MG ####[place] [id number] [facility] Erythrocyte distribution wid th [Ratio] by Automated countOrdered By: Juice Mackenzie on 04-08-2025 Erythrocyte distribution width (RBC) [Ratio] 18.3 % High 11.9-15.3 [facility] Comment on above: Performed By: #### L IPID, A1C WTH eA, HS TROP, BMP, CBC, MG ####[place] [phone] [facility] Erythrocytes [#/volume] in B lood by Automated countOrdered By: Juice Mackenzie on 04-08-2025 RBC (Bld) [#/Vol] 2.99 10*6/uL Low 3.60-5.00 [facility] Comment on above: Performed By: #### L IPID, A1C WTH eA, HS TROP, BMP, CBC, MG ####[facility] [address] [place] [address] [facility] Glomerular filtration rate [ Volume Rate/Area] in Serum, Plasma or Blood by CreatinineOrdered By: Juice Mackenzie on 04-08-2025 Glomerular filtration rate [Volume Rate/Area] in Serum, Plasma or Blood by Creatinine 31.652 mL/Min [facility] Glucose Poct Glucometerson 0 04-08-2025 Glucose [Mass/Vol] 213 mg/dL Normal [facility] Comment on above: Result Comment: [facility] Glucose Reference Range is dependent on time and content of last meal. Glucose of more than 200 mg/dL in a nonstressed, ambulatory subject supports the diagnosis of Diabetes Mellitus.PERFORMED BY:[address] [place], [place] [phone] MEDICAL JULIAN PADILLA M.D. Performed By: #### G LULS ####Point of Care testing, Glucose [Mass/Vol] 129 mg/dL Normal [facility] Comment on above: Result Comment: [facility] Glucose Reference Range is dependent on time and content of last meal. Glucose of more than 200 mg/dL in a nonstressed, ambulatory subject supports the diagnosis of Diabetes Mellitus.PERFORMED BY:[address] [place], [place] [phone] CHRISTOPHER PADILLA M.D. Performed By: #### G LULS ####Point of Care testing, Glucose [Mass/Vol] 305 mg/dL Normal [facility] Comment on above: Result Comment: [facility] Glucose Reference Range is dependent on time and content of last meal. Glucose of more than 200 mg/dL in a nonstressed, ambulatory subject supports the diagnosis of Diabetes Mellitus.PERFORMED BY:[address] [place], [place] [phone] CHRISTOPHER PADILLA M.D. Performed By: #### G LULS ####Point of Care testing, Glucose [Mass/Vol] 163 mg/dL Normal [facility] Comment on above: Result Comment: [place] om Glucose Reference Range is dependent on time and content of last meal. Glucose of more than 200 mg/dL in a nonstressed, ambulatory subject supports the diagnosis of Diabetes Mellitus.PERFORMED BY:[address] [place], [place] [phone] MEDICAL JULIAN PADILLA M.D. Performed By: #### G LULS ####Point of Care testing, Glucose [Mass/Vol] 109 mg/dL Normal [facility] Comment on above: Result Comment: [place] om Glucose Reference Range is dependent on time and content of last meal. Glucose of more than 200 mg/dL in a nonstressed, ambulatory subject supports the diagnosis of Diabetes Mellitus.PERFORMED BY:[address] [place], [place] [phone] MEDICAL JULIAN PADILLA M.D. Performed By: #### G LULS ####Point of Care testing, Glucose [Mass/volume] in Ser um or PlasmaOrdered By: Juice Mackenzie on 04-08-2025 Glucose [Mass/Vol] 144 mg/dL High 70-100 [facility] Comment on above: Result Comment: [place] Glucose Reference Range is dependent on time and content of last meal. Glucose of more than 200 mg/dL in a nonstressed, ambulatory subject supports the diagnosis of Diabetes Mellitus. ADA recommended reference range Performed By: #### L IPID, A1C WTH eA, HS TROP, BMP, CBC, MG ####[place] [place] [address] [facility] Hematocrit [Volume Fraction] of Blood by Automated countOrdered By: Juice Mackenzie on 04-08-2025 Hematocrit (Bld) [Volume fraction] 30.9 % Low 34.0-46.4 [facility] Comment on above: Performed By: #### L IPID, A1C WTH eA, HS TROP, BMP, CBC, MG ####[place] [address] Hemoglobin A1c/Hemoglobin.to nathen in BloodOrdered By: Juice Mackenzie on 04-08-2025 HbA1c (Bld) [Mass fraction] 6.9 % High 4.3-5.6 [facility] Comment on above: Result Comment: Incr eased risk for diabetes: 5.7 - 6.4 diabetes: >6.4 glycemic control for adults with diabetes: <7.0 Performed By: #### L IPID, A1C WTH eA, HS TROP, BMP, CBC, MG ####[address] Hemoglobin [Mass/volume] in BloodOrdered By: Juice Mackenzie on 04-08-2025 Hemoglobin (Bld) [Mass/Vol] 9.9 g/dL Low 11.8-15.4 [facility] Comment on above: Performed By: #### L IPID, A1C WTH eA, HS TROP, BMP, CBC, MG ####[address] Leukocytes [#/volume] correc suzi for nucleated erythrocytes in Blood by Automated counOrdered By: Juice Mackenzie on 04-08-2025 WBC corrected for nucl RBC Auto (Bld) [#/Vol] 7.1 10*3/uL 3.8-11.6 [facility] Leukocytes [#/volume] in Blo od by Automated countOrdered By: Juice Mackenzie on 04-08-2025 WBC (Bld) [#/Vol] 7.1 10*3/uL Normal 3.8-11.6 [facility] Comment on above: Performed By: #### L IPID, A1C WTH eA, HS TROP, BMP, CBC, MG ####[place] [address] Lipid Panelon 04-08-2025 LDL Cholesterol,Calcula suzi 54 mg/dL Normal 0-100 [facility] Comment on above: Result Comment: LDL ATP III CLASSIFICATION LDL less than 100 mg/dL Optimal LDL 100-129 mg/dL Near or above optimal LDL 130-159 mg/dL Borderline high LDL 160-189 mg/dL High LDL greater than 189 mg/dL Very high Performed By: #### L IPID, A1C WTH eA, HS TROP, BMP, CBC, MG ####[place] [address] Triglyceride w/Reflex 190 mg/dL High 0-149 [facility] Comment on above: Result Comment: TRIG ATP III CLASSIFICATION TRIG less than 150 mg/dL Normal TRIG 150-199 mg/dL Borderline high TRIG 200-500 mg/dL High TRIG greater than 500 mg/dL Very high Standard traceable to the Center for Disease Conrtrol and Prevention (CDC) test method. Performed By: #### L IPID, A1C WTH eA, HS TROP, BMP, CBC, MG ####[address] VLDL CHOLESTEROL 38 mg/dL Normal [facility] Comment on above: Performed By: #### L IPID, A1C WTH eA, HS TROP, BMP, CBC, MG ####[address] Lymphocytes [#/volume] in Bl ood by Automated countOrdered By: Juice Mackenzie on 04-08-2025 Lymphocytes (Bld) [#/Vol] 1.2 10*3/uL Normal 1.00-4.8 [facility] Comment on above: Performed By: #### L IPID, A1C WTH eA, HS TROP, BMP, CBC, MG ####[address] Lymphocytes/100 leukocytes i n Blood by Automated countOrdered By: Juice Mackenzie on 04-08-2025 Lymphocytes/100 WBC (Bld) 17.6 % Normal . [facility] Comment on above: Performed By: #### L IPID, A1C WTH eA, HS TROP, BMP, CBC, MG ####[address] MCH [Entitic mass] by Automa suzi countOrdered By: Juice Mackenzie on 04-08-2025 MCH (RBC) [Entitic mass] 33.1 pg Normal 24.7-34.3 [facility] Comment on above: Performed By: #### L IPID, A1C WTH eA, HS TROP, BMP, CBC, MG ####[facility] MCHC Auto (RBC) [Mass/Vol]Or dered By: Juice Mackenzie on 04-08-2025 MCHC (RBC) [Mass/Vol] 32.0 g/dL 32.0-35.0 [facility] MCV [Entitic volume] by Auto mated countOrdered By: Juice Mackenzie on 04-08-2025 MCV (RBC) [Entitic vol] 103.5 fL High 80-100 [facility] Comment on above: Performed By: #### L IPID, A1C WTH eA, HS TROP, BMP, CBC, MG ####[place] [address] Magnesium [Mass/volume] in S paloma or PlasmaOrdered By: Juice Mackenzie on 04-08-2025 Magnesium [Mass/Vol] 2.0 mg/dL Normal 1.9-2.7 [facility] Comment on above: Performed By: #### L IPID, A1C WTH eA, HS TROP, BMP, CBC, MG ####[place] [address] Monocytes [#/volume] in Bloo d by Automated countOrdered By: Juice Mackenzie on 04-08-2025 Monocytes (Bld) [#/Vol] 0.7 10*3/uL Normal 0.0-0.8 [facility] Comment on above: Performed By: #### L IPID, A1C WTH eA, HS TROP, BMP, CBC, MG ####[facility] [place] [id number] [place] Monocytes/100 leukocytes in Blood by Automated countOrdered By: Juice Mackenzie on 04-08-2025 Monocytes/100 WBC (Bld) 9.5 % Normal . [facility] Comment on above: Performed By: #### L IPID, A1C WTH eA, HS TROP, BMP, CBC, MG ####[facility] [place] [id number] [facility] Neutrophils [#/volume] in Bl ood by Automated countOrdered By: Juice Mackenzie on 04-08-2025 Neutrophils (Bld) [#/Vol] 4.9 10*3/uL Normal 1.8-7.7 [facility] Comment on above: Performed By: #### L IPID, A1C WTH eA, HS TROP, BMP, CBC, MG ####[facility] Neutrophils/100 leukocytes i n Blood by Automated countOrdered By: Juice Mackenzie on 04-08-2025 Neutrophils/100 WBC (Bld) 69.6 % Normal . [facility] Comment on above: Performed By: #### L IPID, A1C WTH eA, HS TROP, BMP, CBC, MG ####[place] [address] No Panel InformationOrdered By: Juice Mackenzie on 04-08-2025 25.86 [facility] Nucleated erythrocytes [Pres ence] in Blood by Automated countOrdered By: Juice Mackenzie on 04-08-2025 Nucleated RBC Auto Ql (Bld) 0.2 /100{WBC} 0-0.5 [facility] Platelet mean volume [Entiti c volume] in Blood by Automated countOrdered By: Juice Mackenzie on 04-08-2025 Platelet mean volume (Bld) [Entitic vol] 8.7 fL Normal 6.3-10.7 [facility] Comment on above: Performed By: #### L IPID, A1C WTH eA, HS TROP, BMP, CBC, MG ####[facility] [place] [id number] [place] Platelets [#/volume] in Bloo d by Automated countOrdered By: Juice Mackenzie on 04-08-2025 Platelets (Bld) [#/Vol] 214 10*3/uL Normal 150-450 [facility] Comment on above: Performed By: #### L IPID, A1C WTH eA, HS TROP, BMP, CBC, MG ####[facility] [place] [address] [facility] Potassium [Moles/volume] in Serum or PlasmaOrdered By: Juice Mackenzie on 04-08-2025 Potassium [Moles/Vol] 3.9 mmol/L Normal 3.5-5.1 [facility] Comment on above: Performed By: #### L IPID, A1C WTH eA, HS TROP, BMP, CBC, MG ####[place] [address] [place] [id number] [facility] Serum or plasma anion gap de terminationOrdered By: Juice Mackenzie on 04-08-2025 Anion gap [Moles/Vol] 8.7 mmol/L Normal 6.0-15.0 [facility] Comment on above: Performed By: #### L IPID, A1C WTH eA, HS TROP, BMP, CBC, MG ####[place] [address] [place] [id number] [facility] Serum or plasma total choles terol/high density lipoprotein (HDL) cholesterol mass ratOrdered By: Juice Mackenzie on 04-08-2025 Cholesterol.total/C holesterol in HDL [Mass ratio] 3.7 {ratio} Normal <5.0 [facility] Comment on above: Result Comment: PERF ORMED BY:[address] [place], [place] [phone] MEDICAL JULIAN PADILLA M.D. Performed By: #### L IPID, A1C WTH eA, HS TROP, BMP, CBC, MG ####[place] [address] [place] [id number] [facility] Sodium [Moles/volume] in Ser um or PlasmaOrdered By: Juice Mackenzie on 04-08-2025 Sodium [Moles/Vol] 139 mmol/L Normal 136-145 [facility] Comment on above: Performed By: #### L IPID, A1C WTH eA, HS TROP, BMP, CBC, MG ####[facility] [place] [id number] [facility] Triglyceride [Mass/volume] i n Serum or PlasmaOrdered By: Juice Mackenzie on 04-08-2025 Triglyceride [Mass/Vol] 190 mg/dL High 0-149 [facility] Troponin I High Sensitivityo n 04-08-2025 Troponin I High Sensitivity 48 High 0-15 [facility] Comment on above: Result Comment: The Troponin units of report have been changed to meet the Chest Pain Accreditation requirement, element EC5.M1l2. Troponin units are changed from pg/ml to ng/L. Also, the decimal is removed and results are in whole numbers.PERFORMED BY:[address] [place], [place] [phone] MEDICAL DIRECTORALINA PADILLA M.D. Performed By: #### L IPID, A1C WTH eA, HS TROP, BMP, CBC, MG ####[address] [address] [facility] Troponin I High Sensitivity 61 Off scale high 0-15 [facility] Comment on above: Result Comment: Crit ical Result : Called to and read back by: LI LAWRENCE at: 04/08/2025 01:19:37 by:[id number] The Troponin units of report have been changed to meet the Chest Pain Accreditation requirement, element EC5.M1l2. Troponin units are changed from pg/ml to ng/L. Also, the decimal is removed and results are in whole numbers.PERFORMED BY:[address] [place], [place] [phone] MEDICAL JULIAN PADILLA M.D. Performed By: #### H S TROP ####[address] [address] [facility] Troponin I.cardiac [Mass/vol ume] in Serum or Plasma by Detection limit <= 0.01 ng/mLOrdered By: Juice Mackenzie on 04-08-2025 Troponin I.cardiac DL <= 0.01 ng/mL [Mass/Vol] 48 ng/L High 0-15 [facility] Urea nitrogen [Mass/volume] in Serum or PlasmaOrdered By: Juice Mackenzie on 04-08-2025 Urea nitrogen [Mass/Vol] 30 mg/dL High 7-25 [facility] Comment on above: Performed By: #### L IPID, A1C WTH eA, HS TROP, BMP, CBC, MG ####[facility] [address] [place] [address] [facility] Basophils Auto (Bld) [#/Vol] Ordered By: Chao Chapman on 04-07-2025 Basophils (Bld) [#/Vol] 0.0 10 3/uL 0.0-0.1 [facility] Basophils/100 WBC Auto (Bld) Ordered By: Chao Chapman on 04-07-2025 Basophils/100 WBC (Bld) 0.2 % 0.2-2.0 [facility] Eosinophils/100 WBC Auto (Bl d)Ordered By: Chao Chapman on 04-07-2025 Eosinophils/100 WBC (Bld) 1.3 % 0.9-7.0 [facility] Erythrocyte distribution wid th Auto (RBC) [Ratio]Ordered By: Chao Chapman on 04-07-2025 Erythrocyte distribution width (RBC) [Ratio] 17.3 % High 11.0-15.0 [facility] Glomerular filtration rate ( GFR) estimation in non- AmericanOrdered By: Gary Lizama on 04-07-2025 GFR/1.73 sq M.predicted among non-blacks MDRD (S/P/Bld) [Vol rate/Area] 26 mL/min/{1.73_m2} Low >=60 mL/min/1.73m 2 [facility] Hematocrit Auto (Bld) [Volum e fraction]Ordered By: Chao Chapman on 04-07-2025 Hematocrit (Bld) [Volume fraction] 33.8 % Low 36.0-48.0 [facility] Hemoglobin [Mass/volume] in BloodOrdered By: Chao Chapman on 04-07-2025 Hemoglobin (Bld) [Mass/Vol] 10.0 g/dL Low 12.0-16.0 [facility] Leukocytes [#/volume] correc suzi for nucleated erythrocytes in Blood by Automated counOrdered By: Chao Chapman on 04-07-2025 WBC corrected for nucl RBC Auto (Bld) [#/Vol] 9.2 10 3/uL 4.0-11.0 [facility] Lymphocytes Auto (Bld) [#/Vo l]Ordered By: Chao Chapman on 04-07-2025 Lymphocytes (Bld) [#/Vol] 1.2 10 3/uL 1.2-3.8 [facility] Lymphocytes/100 WBC Auto (Bl d)Ordered By: Chao Chapman on 04-07-2025 Lymphocytes/100 WBC (Bld) 13.4 % Low 20.5-60.0 [facility] MCH Auto (RBC) [Entitic mass ]Ordered By: Chao Chapman on 04-07-2025 MCH (RBC) [Entitic mass] 32.3 pg 26.7-34.0 [facility] MCHC Auto (RBC) [Mass/Vol]Or dered By: Chao Chapman on 04-07-2025 MCHC (RBC) [Mass/Vol] 29.6 g/dL Low 29.9-35.2 [facility] MCV Auto (RBC) [Entitic vol] Ordered By: Chao Chapman on 04-07-2025 MCV (RBC) [Entitic vol] 109.0 fL High 81.0-99.0 [facility] Monocytes Auto (Bld) [#/Vol] Ordered By: Chao Chapman on 04-07-2025 Monocytes (Bld) [#/Vol] 0.6 10 3/uL 0.3-0.8 [facility] Monocytes/100 WBC Auto (Bld) Ordered By: Chao Chapman on 04-07-2025 Monocytes/100 WBC (Bld) 6.0 % 1.7-12.0 [facility] Neutrophils Auto (Bld) [#/Vo l]Ordered By: Chao Chapman on 04-07-2025 Neutrophils (Bld) [#/Vol] 7.2 10 3/uL High 1.4-6.5 [facility] Neutrophils/100 WBC Auto (Bl d)Ordered By: Chao Chapman on 04-07-2025 Neutrophils/100 WBC (Bld) 78.6 % High 43.0-75.0 [facility] No Panel InformationOrdered By: Gary Lizama on 04-07-2025 66.6 pg/mL Critically high 4.0-51.3 [facility] 6616.0 pg/mL Critically high <=1800.0 [facility] 18.3 [facility] 34.0 mg/dL High 7.0-18.0 [facility] 8.9 mg/dL 8.5-10.1 [facility] 101 mmol/L 98-107 [facility] 30.3 mmol/L 21.0-32.0 [facility] 1.86 mg/dL High 0.55-1.02 [facility] 32 Low >=60 mL/min/1.73m 2 [facility] [facility] 211 mg/dL High 74-106 [facility] 4.7 mmol/L 3.5-5.1 [facility] 136 mmol/L 136-145 [facility] No Panel InformationOrdered By: Chao Chapman on 04-07-2025 0.1 10 3/uL 0.0-0.7 [facility] 0.05 10 3/uL High 0.00-0.03 [facility] 0.5 % 0.0-0.5 [facility] Platelet mean volume Auto (B ld) [Entitic vol]Ordered By: Chao Chapman on 04-07-2025 Platelet mean volume (Bld) [Entitic vol] 10.9 fL 9.5-13.5 [facility] Platelets Auto (Bld) [#/Vol] Ordered By: Chao Chapman on 04-07-2025 Platelets (Bld) [#/Vol] 225 10 3/uL 150-450 [facility] RBC Auto (Bld) [#/Vol]Ordere d By: Chao Chapman on 04-07-2025 RBC (Bld) [#/Vol] 3.10 10 6/uL Low 4.20-5.40 [facility] Serum or plasma anion gap de terminationOrdered By: Gary Lizama on 04-07-2025 Anion gap [Moles/Vol] 9.4 mmol/L [facility] Glucose Poct Glucometerson 0 04-04-2025 Glucose [Mass/Vol] 155 mg/dL Normal [facility] Comment on above: Result Comment: [place] om Glucose Reference Range is dependent on time and content of last meal. Glucose of more than 200 mg/dL in a nonstressed, ambulatory subject supports the diagnosis of Diabetes Mellitus.PERFORMED BY:[address] [place], [place] [phone] MEDICAL JULIAN PADILLA M.D. Performed By: #### G LULS ####Point of Care testing, Glucose [Mass/Vol] 166 mg/dL Normal [facility] Comment on above: Result Comment: [place] om Glucose Reference Range is dependent on time and content of last meal. Glucose of more than 200 mg/dL in a nonstressed, ambulatory subject supports the diagnosis of Diabetes Mellitus.PERFORMED BY:[address] [place], [place] [phone] CHRISTOPHER PADILLA M.D. Performed By: #### G LULS ####Point of Care testing, Glucose Poct Glucometerson 0 04-03-2025 Glucose [Mass/Vol] 141 mg/dL Normal [facility] Comment on above: Result Comment: [place] om Glucose Reference Range is dependent on time and content of last meal. Glucose of more than 200 mg/dL in a nonstressed, ambulatory subject supports the diagnosis of Diabetes Mellitus.PERFORMED BY:[address] [place], [place] [phone] CHRISTOPHER PADILLA M.D. Performed By: #### G LULS ####Point of Care testing, Glucose [Mass/Vol] 187 mg/dL Normal [facility] Comment on above: Result Comment: [place] Glucose Reference Range is dependent on time and content of last meal. Glucose of more than 200 mg/dL in a nonstressed, ambulatory subject supports the diagnosis of Diabetes Mellitus.PERFORMED BY:[address] [place], [place] [phone] CHRISTOPHER PADILLA M.D. Performed By: #### G LULS ####Point of Care testing, Commemt1 Glu2: Cleaned Meter Normal [facility] Comment on above: Result Comment: PERF ORMED BY:[place] [address] [address] [place], [place] [phone] MEDICAL JULIAN PADILLA M.D. Performed By: #### G LULS ####Point of Care testing, Glucose [Mass/Vol] 332 mg/dL Normal [facility] Comment on above: Result Comment: [place] om Glucose Reference Range is dependent on time and content of last meal. Glucose of more than 200 mg/dL in a nonstressed, ambulatory subject supports the diagnosis of Diabetes Mellitus. Performed By: #### G LULS ####Point of Care testing, Commemt1 Glu2: Cleaned Meter Normal [facility] Comment on above: Result Comment: PERF ORMED BY:[address] [place], [place] [phone] MEDICAL JULIAN PADILLA M.D. Performed By: #### G LULS ####Point of Care testing, Glucose [Mass/Vol] 191 mg/dL Normal [facility] Comment on above: Result Comment: [place] om Glucose Reference Range is dependent on time and content of last meal. Glucose of more than 200 mg/dL in a nonstressed, ambulatory subject supports the diagnosis of Diabetes Mellitus. Performed By: #### G LULS ####Point of Care testing, Commemt1 Glu2: Cleaned Meter Normal [facility] Comment on above: Result Comment: PERF ORMED BY:[address] [place], [place] [phone] MEDICAL JULIAN PADILLA M.D. Performed By: #### G LULS ####Point of Care testing, Glucose [Mass/Vol] 81 mg/dL Normal [facility] Comment on above: Result Comment: [place] om Glucose Reference Range is dependent on time and content of last meal. Glucose of more than 200 mg/dL in a nonstressed, ambulatory subject supports the diagnosis of Diabetes Mellitus. Performed By: #### G LULS ####Point of Care testing, Glucose [Mass/Vol] 67 mg/dL Normal [facility] Comment on above: Result Comment: [place] om Glucose Reference Range is dependent on time and content of last meal. Glucose of more than 200 mg/dL in a nonstressed, ambulatory subject supports the diagnosis of Diabetes Mellitus.PERFORMED BY:[place] [address] [address] [place], [place] [phone] MEDICAL JULIAN PADILLA M.D. Performed By: #### G LULS ####Point of Care testing, Commemt1 Glu2: Cleaned Meter Normal [facility] Comment on above: Result Comment: PERF ORMED BY:[address] [place], [place] [phone] MEDICAL JULIAN PADILLA M.D. Performed By: #### G LULS ####Point of Care testing, Glucose [Mass/Vol] 61 mg/dL Normal [facility] Comment on above: Result Comment: [place] om Glucose Reference Range is dependent on time and content of last meal. Glucose of more than 200 mg/dL in a nonstressed, ambulatory subject supports the diagnosis of Diabetes Mellitus. Performed By: #### G LULS ####Point of Care testing, Glucose Poct Glucometerson 0 04-02-2025 Glucose [Mass/Vol] 105 mg/dL Normal [facility] Comment on above: Result Comment: [place] om Glucose Reference Range is dependent on time and content of last meal. Glucose of more than 200 mg/dL in a nonstressed, ambulatory subject supports the diagnosis of Diabetes Mellitus.PERFORMED BY:[place] [address] [address] [place], [place] [phone] MEDICAL JULIAN PADILLA M.D. Performed By: #### G LULS ####Point of Care testing, Glucose [Mass/Vol] 175 mg/dL Normal [facility] Comment on above: Result Comment: [place] om Glucose Reference Range is dependent on time and content of last meal. Glucose of more than 200 mg/dL in a nonstressed, ambulatory subject supports the diagnosis of Diabetes Mellitus.PERFORMED BY:[address] [place], [place] [phone] MEDICAL JULIAN PADILLA M.D. Performed By: #### G LULS ####Point of Care testing, Glucose [Mass/Vol] 178 mg/dL Normal [facility] Comment on above: Result Comment: [place] om Glucose Reference Range is dependent on time and content of last meal. Glucose of more than 200 mg/dL in a nonstressed, ambulatory subject supports the diagnosis of Diabetes Mellitus.PERFORMED BY:[address] [place], [place] [phone] MEDICAL JULIAN PADILLA M.D. Performed By: #### G LULS ####Point of Care testing, Glucose [Mass/Vol] 146 mg/dL Normal [facility] Comment on above: Result Comment: [place] om Glucose Reference Range is dependent on time and content of last meal. Glucose of more than 200 mg/dL in a nonstressed, ambulatory subject supports the diagnosis of Diabetes Mellitus.PERFORMED BY:[address] [place], [place] [phone] MEDICAL JULIAN PADILLA M.D. Performed By: #### G LULS ####Point of Care testing, Commemt1 Glu2: Cleaned Meter Normal [facility] Comment on above: Result Comment: PERF ORMED BY:[address] [place], [place] [phone] MEDICAL JULIAN PADILLA M.D. Performed By: #### G LULS ####Point of Care testing, Glucose [Mass/Vol] 74 mg/dL Normal [facility] Comment on above: Result Comment: [place] om Glucose Reference Range is dependent on time and content of last meal. Glucose of more than 200 mg/dL in a nonstressed, ambulatory subject supports the diagnosis of Diabetes Mellitus. Performed By: #### G LULS ####Point of Care testing, Commemt1 Glu2: Cleaned Meter Normal [facility] Comment on above: Result Comment: PERF ORMED BY:[place] [address] [address] [place], [place] [phone] MEDICAL DIRECTORALINA PADILLA M.D. Performed By: #### G LULS ####Point of Care testing, Glucose [Mass/Vol] 94 mg/dL Normal [facility] Comment on above: Result Comment: [place] om Glucose Reference Range is dependent on time and content of last meal. Glucose of more than 200 mg/dL in a nonstressed, ambulatory subject supports the diagnosis of Diabetes Mellitus. Performed By: #### G LULS ####Point of Care testing, Commemt1 Glu2: Cleaned Meter Normal [facility] Comment on above: Result Comment: PERF ORMED BY:[place] [address] [address] [place], [place] [phone] MEDICAL JULIAN PADILLA M.D. Performed By: #### G LULS ####Point of Care testing, Glucose [Mass/Vol] 75 mg/dL Normal [facility] Comment on above: Result Comment: [place] om Glucose Reference Range is dependent on time and content of last meal. Glucose of more than 200 mg/dL in a nonstressed, ambulatory subject supports the diagnosis of Diabetes Mellitus. Performed By: #### G LULS ####Point of Care testing, Commemt1 Glu2: Cleaned Meter Normal [facility] Comment on above: Result Comment: PERF ORMED BY:[address] [place], [place] [phone] MEDICAL JULIAN PADILLA M.D. Performed By: #### G LULS ####Point of Care testing, Glucose [Mass/Vol] 62 mg/dL Normal [facility] Comment on above: Result Comment: [place] om Glucose Reference Range is dependent on time and content of last meal. Glucose of more than 200 mg/dL in a nonstressed, ambulatory subject supports the diagnosis of Diabetes Mellitus. Performed By: #### G LULS ####Point of Care testing, Basic Metabolic Panelon 03-14 Anion gap [Moles/Vol] 8.9 mmol/L Normal 6.0-15.0 [facility] Comment on above: Performed By: #### B MP ####[address] [address] [facility] Calcium [Mass/Vol] 8.6 mg/dL Normal 8.6-10.3 [facility] Comment on above: Performed By: #### B MP ####[place] [id number] [facility] Chloride [Moles/Vol] 103 mmol/L Normal 98-107 [facility] Comment on above: Performed By: #### B MP ####[place] [address] [facility] CO2 [Moles/Vol] 29.8 mmol/L Normal 21.0-31.0 [facility] Comment on above: Performed By: #### B MP ####[place] [address] [facility] Creatinine [Mass/Vol] 1.69 mg/dL High 0.60-1.20 [facility] Comment on above: Performed By: #### B MP ####[place] [address] [facility] Creatinine Clr Calc Pharmacy 25.05 Normal [facility] Comment on above: Result Comment: PERF ORMED BY:[address] [place], [place] [phone] MEDICAL JULIAN PADILLA M.D. Performed By: #### B MP ####[place] [address] [facility] GFR/1.73 sq M.predicted MDRD (S/P/Bld) [Vol rate/Area] 30.531 mL/min/{1.73_m2} Normal [facility] Comment on above: Performed By: #### B MP ####[place] [address] [facility] Glucose [Mass/Vol] 120 mg/dL High 70-100 [facility] Comment on above: Result Comment: [place] Glucose Reference Range is dependent on time and content of last meal. Glucose of more than 200 mg/dL in a nonstressed, ambulatory subject supports the diagnosis of Diabetes Mellitus. ADA recommended reference range Performed By: #### B MP ####[place] [address] [facility] Potassium [Moles/Vol] 4.7 mmol/L Normal 3.5-5.1 [facility] Comment on above: Performed By: #### B MP ####[place] [address] [facility] Sodium [Moles/Vol] 137 mmol/L Normal 136-145 [facility] Comment on above: Performed By: #### B MP ####[place] [address] [facility] Urea nitrogen [Mass/Vol] 52 mg/dL High 7-25 [facility] Comment on above: Performed By: #### B MP ####[place] [address] [facility] Glucose Poct Glucometerson 0 04-01-2025 Commemt1 Glu2: Cleaned Meter Normal [facility] Comment on above: Result Comment: PERF ORMED BY:[address] [place], [place] [phone] MEDICAL JULIAN PADILLA M.D. Performed By: #### G LULS ####Point of Care testing, Glucose [Mass/Vol] 161 mg/dL Normal [facility] Comment on above: Result Comment: [place] Glucose Reference Range is dependent on time and content of last meal. Glucose of more than 200 mg/dL in a nonstressed, ambulatory subject supports the diagnosis of Diabetes Mellitus. Performed By: #### G LULS ####Point of Care testing, Glucose [Mass/Vol] 108 mg/dL Normal [facility] Comment on above: Result Comment: [place] Glucose Reference Range is dependent on time and content of last meal. Glucose of more than 200 mg/dL in a nonstressed, ambulatory subject supports the diagnosis of Diabetes Mellitus.PERFORMED BY:[address] [place], [place] [phone] MEDICAL JULIAN PADILLA M.D. Performed By: #### G LULS ####Point of Care testing, Glucose [Mass/Vol] 62 mg/dL Normal [facility] Comment on above: Result Comment: [place] om Glucose Reference Range is dependent on time and content of last meal. Glucose of more than 200 mg/dL in a nonstressed, ambulatory subject supports the diagnosis of Diabetes Mellitus.PERFORMED BY:[address] [place], [place] [phone] MEDICAL JULIAN PADILLA M.D. Performed By: #### G LULS ####Point of Care testing, Commemt1 Normal [facility] Comment on above: Result Comment: Glu2 : FOLLOW HYPOGLYCEMICPERFORMED BY:[address] [place], [place] [phone] MEDICAL JULIAN PADILLA M.D. Performed By: #### G LULS ####Point of Care testing, Glucose [Mass/Vol] 59 mg/dL Off scale low [facility] Comment on above: Result Comment: [place] Glucose Reference Range is dependent on time and content of last meal. Glucose of more than 200 mg/dL in a nonstressed, ambulatory subject supports the diagnosis of Diabetes Mellitus. Performed By: #### G LULS ####Point of Care testing, Commemt1 Glu2: Cleaned Meter Normal [facility] Comment on above: Result Comment: PERF ORMED BY:[address] [place], [place] [phone] MEDICAL JULIAN PADILLA M.D. Performed By: #### G LULS ####Point of Care testing, Glucose [Mass/Vol] 97 mg/dL Normal [facility] Comment on above: Result Comment: [place] om Glucose Reference Range is dependent on time and content of last meal. Glucose of more than 200 mg/dL in a nonstressed, ambulatory subject supports the diagnosis of Diabetes Mellitus. Performed By: #### G LULS ####Point of Care testing, Commemt1 Glu2: Cleaned Meter Normal [facility] Comment on above: Result Comment: PERF ORMED BY:[place] [address] [address] [place], [place] [phone] MEDICAL JULIAN PADILLA M.D. Performed By: #### G LULS ####Point of Care testing, Glucose [Mass/Vol] 128 mg/dL Normal [facility] Comment on above: Result Comment: [place] om Glucose Reference Range is dependent on time and content of last meal. Glucose of more than 200 mg/dL in a nonstressed, ambulatory subject supports the diagnosis of Diabetes Mellitus. Performed By: #### G LULS ####Point of Care testing, Glucose [Mass/Vol] 121 mg/dL Normal [facility] Comment on above: Result Comment: [place] om Glucose Reference Range is dependent on time and content of last meal. Glucose of more than 200 mg/dL in a nonstressed, ambulatory subject supports the diagnosis of Diabetes Mellitus.PERFORMED BY:[address] [place], [place] [phone] MEDICAL JULIAN PADILLA M.D. Performed By: #### G LULS ####Point of Care testing, Glucose [Mass/Vol] 79 mg/dL Normal [facility] Comment on above: Result Comment: [place] om Glucose Reference Range is dependent on time and content of last meal. Glucose of more than 200 mg/dL in a nonstressed, ambulatory subject supports the diagnosis of Diabetes Mellitus.PERFORMED BY:[address] [place], [place] [phone] MEDICAL JULIAN PADILLA M.D. Performed By: #### G LULS ####Point of Care testing, Glucose [Mass/Vol] 64 mg/dL Normal [facility] Comment on above: Result Comment: [place] om Glucose Reference Range is dependent on time and content of last meal. Glucose of more than 200 mg/dL in a nonstressed, ambulatory subject supports the diagnosis of Diabetes Mellitus.PERFORMED BY:[address] [place], [place] [phone] CHRISTOPHER PADILLA M.D. Performed By: #### G LULS ####Point of Care testing, Glucose [Mass/Vol] 140 mg/dL Normal [facility] Comment on above: Result Comment: [facility] Glucose Reference Range is dependent on time and content of last meal. Glucose of more than 200 mg/dL in a nonstressed, ambulatory subject supports the diagnosis of Diabetes Mellitus.PERFORMED BY:[address] [place], [place] [phone] MEDICAL JULIAN PADILLA M.D. Performed By: #### G LULS ####Point of Care testing, B-Type Natriuretic Peptideon 03-31-2025 Natriuretic peptide B (Bld) [Mass/Vol] 791.0 pg/mL High 5-100 [facility] Comment on above: Result Comment: PERF ORMED BY:[address] [place], [place] [phone] MEDICAL JULIAN PADILLA M.D. Performed By: #### B SILVER SOLUTION MIXER, CBC ####[place] [id number] [facility] Complete Blood Count Auto Di ffon 03-31-2025 Basophils (Bld) [#/Vol] 0.1 10*3/uL Normal 0.0-0.2 [facility] Comment on above: Result Comment: PERF ORMED BY:[address] [place], [place] [phone] MEDICAL JULIAN PADILLA M.D. Performed By: #### B SILVER SOLUTION MIXER, CBC ####[place] [phone] [facility] Basophils/100 WBC (Bld) 0.5 % Normal . [facility] Comment on above: Performed By: #### B SILVER SOLUTION MIXER, CBC ####[address] Eosinophils (Bld) [#/Vol] 0.0 10*3/uL Normal 0.0-0.45 [facility] Comment on above: Performed By: #### B SILVER SOLUTION MIXER, CBC ####[place] [address] Eosinophils/100 WBC (Bld) 0.2 % Normal . [facility] Comment on above: Performed By: #### B SILVER SOLUTION MIXER, CBC ####[address] Erythrocyte distribution width (RBC) [Ratio] 17.6 % High 11.9-15.3 [facility] Comment on above: Performed By: #### B SILVER SOLUTION MIXER, CBC ####[address] Hematocrit (Bld) [Volume fraction] 30.6 % Low 34.0-46.4 [facility] Comment on above: Performed By: #### B SILVER SOLUTION MIXER, CBC ####[address] Hemoglobin (Bld) [Mass/Vol] 9.7 g/dL Low 11.8-15.4 [facility] Comment on above: Performed By: #### B SILVER SOLUTION MIXER, CBC ####[address] Lymphocytes (Bld) [#/Vol] 1.1 10*3/uL Normal 1.00-4.8 [facility] Comment on above: Performed By: #### B SILVER SOLUTION MIXER, CBC ####[address] Lymphocytes/100 WBC (Bld) 8.2 % Normal . [facility] Comment on above: Performed By: #### B SILVER SOLUTION MIXER, CBC ####[address] MCH (RBC) [Entitic mass] 32.6 pg Normal 24.7-34.3 [facility] Comment on above: Performed By: #### B SILVER SOLUTION MIXER, CBC ####[address] MCV (RBC) [Entitic vol] 103.0 fL High 80-100 [facility] Comment on above: Performed By: #### B SILVER SOLUTION MIXER, CBC ####[address] Mean Corpuscular HGB Conc 31.7 g/dL Low 32.0-35.0 [facility] Comment on above: Performed By: #### B SILVER SOLUTION MIXER, CBC ####[address] Monocytes (Bld) [#/Vol] 0.7 10*3/uL Normal 0.0-0.8 [facility] Comment on above: Performed By: #### B SILVER SOLUTION MIXER, CBC ####[address] Monocytes/100 WBC (Bld) 5.6 % Normal . [facility] Comment on above: Performed By: #### B SILVER SOLUTION MIXER, CBC ####[address] Neutrophils (Bld) [#/Vol] 11.2 10*3/uL High 1.8-7.7 [facility] Comment on above: Performed By: #### B SILVER SOLUTION MIXER, CBC ####[address] Neutrophils/100 WBC (Bld) 85.5 % Normal . [facility] Comment on above: Performed By: #### B SILVER SOLUTION MIXER, CBC ####[address] NRBC% 0.2 /100{WBC} Normal 0-0.5 [facility] Comment on above: Performed By: #### B SILVER SOLUTION MIXER, CBC ####[address] Platelet mean volume (Bld) [Entitic vol] 9.4 fL Normal 6.3-10.7 [facility] Comment on above: Performed By: #### B SILVER SOLUTION MIXER, CBC ####[address] Platelets (Bld) [#/Vol] 200 10*3/uL Normal 150-450 [facility] Comment on above: Performed By: #### B SILVER SOLUTION MIXER, CBC ####[address] RBC (Bld) [#/Vol] 2.97 10*6/uL Low 3.60-5.00 [facility] Comment on above: Performed By: #### B SILVER SOLUTION MIXER, CBC ####[address] WBC (Bld) [#/Vol] 13.1 10*3/uL High 3.8-11.6 [facility] Comment on above: Performed By: #### B SILVER SOLUTION MIXER, CBC ####[address] White Blood Count 13.1 [CFU]/mL High 3.8-11.6 [facility] Comment on above: Performed By: #### B SILVER SOLUTION MIXER, CBC ####[address] Glucose Poct Glucometerson 0 03-31-2025 Glucose [Mass/Vol] 264 mg/dL Normal [facility] Comment on above: Result Comment: [facility] Glucose Reference Range is dependent on time and content of last meal. Glucose of more than 200 mg/dL in a nonstressed, ambulatory subject supports the diagnosis of Diabetes Mellitus.PERFORMED BY:[address] [place], [place] [phone] MEDICAL JULIAN PADILLA M.D. Performed By: #### G LULS ####Point of Care testing, Glucose [Mass/Vol] 263 mg/dL Normal [facility] Comment on above: Result Comment: [facility] Glucose Reference Range is dependent on time and content of last meal. Glucose of more than 200 mg/dL in a nonstressed, ambulatory subject supports the diagnosis of Diabetes Mellitus.PERFORMED BY:[address] [place], [place] [phone] MEDICAL JULIAN PADILLA M.D. Performed By: #### G LULS ####Point of Care testing, Glucose [Mass/Vol] 126 mg/dL Normal [facility] Comment on above: Result Comment: [facility] Glucose Reference Range is dependent on time and content of last meal. Glucose of more than 200 mg/dL in a nonstressed, ambulatory subject supports the diagnosis of Diabetes Mellitus.PERFORMED BY:[place] [address] [address] [place], [place] [phone] MEDICAL JULIAN PADILLA M.D. Performed By: #### G LULS ####Point of Care testing, Commemt1 Glu2: Cleaned Meter Normal [facility] Comment on above: Result Comment: PERF ORMED BY:[address] [place], [place] [phone] MEDICAL JULIAN PADILLA M.D. Performed By: #### G LULS ####Point of Care testing, Glucose [Mass/Vol] 120 mg/dL Normal [facility] Comment on above: Result Comment: [place] [facility] Glucose Reference Range is dependent on time and content of last meal. Glucose of more than 200 mg/dL in a nonstressed, ambulatory subject supports the diagnosis of Diabetes Mellitus. Performed By: #### G LULS ####Point of Care testing, Glucose [Mass/Vol] 68 mg/dL Normal [facility] Comment on above: Result Comment: [place] [facility] Glucose Reference Range is dependent on time and content of last meal. Glucose of more than 200 mg/dL in a nonstressed, ambulatory subject supports the diagnosis of Diabetes Mellitus.PERFORMED BY:[address] [place], [place] [phone] MEDICAL JULIAN PADILLA M.D. Performed By: #### G LULS ####Point of Care testing, Glucose [Mass/Vol] 61 mg/dL Normal [facility] Comment on above: Result Comment: [place] [facility] Glucose Reference Range is dependent on time and content of last meal. Glucose of more than 200 mg/dL in a nonstressed, ambulatory subject supports the diagnosis of Diabetes Mellitus.PERFORMED BY:[place] [address] [place], [place] [phone] CHRISTOPHER PADILLA M.D. Performed By: #### G LULS ####Point of Care testing, Glucose Poct Glucometerson 0 917-2025 Glucose [Mass/Vol] 288 mg/dL Normal [facility] Comment on above: Result Comment: [place] [facility] Glucose Reference Range is dependent on time and content of last meal. Glucose of more than 200 mg/dL in a nonstressed, ambulatory subject supports the diagnosis of Diabetes Mellitus.PERFORMED BY:[address] [place], [place] [phone] MEDICAL JULIAN PADILLA M.D. Performed By: #### G LULS ####Point of Care testing, Glucose [Mass/Vol] 216 mg/dL Normal [facility] Comment on above: Result Comment: [place] [facility] Glucose Reference Range is dependent on time and content of last meal. Glucose of more than 200 mg/dL in a nonstressed, ambulatory subject supports the diagnosis of Diabetes Mellitus.PERFORMED BY:[address] [place], [place] [phone] MEDICAL JULIAN PADILLA M.D. Performed By: #### G LULS ####Point of Care testing, Commemt1 Glu2: Cleaned Meter Normal [facility] Comment on above: Result Comment: PERF ORMED BY:[place] [address] [address] [place], [place] [phone] CHRISTOPHER PADILLA M.D. Performed By: #### G LULS ####Point of Care testing, Glucose [Mass/Vol] 109 mg/dL Normal [facility] Comment on above: Result Comment: [place] [facility] Glucose Reference Range is dependent on time and content of last meal. Glucose of more than 200 mg/dL in a nonstressed, ambulatory subject supports the diagnosis of Diabetes Mellitus. Performed By: #### G LULS ####Point of Care testing, Glucose [Mass/Vol] 108 mg/dL Normal [facility] Comment on above: Result Comment: [place] [facility] Glucose Reference Range is dependent on time and content of last meal. Glucose of more than 200 mg/dL in a nonstressed, ambulatory subject supports the diagnosis of Diabetes Mellitus.PERFORMED BY:[address] [address] [address] [place], [place] [phone] MEDICAL JULIAN PADILLA M.D. Performed By: #### G LULS ####Point of Care testing, Glucose [Mass/Vol] 222 mg/dL Normal [facility] Comment on above: Result Comment: [place] Glucose Reference Range is dependent on time and content of last meal. Glucose of more than 200 mg/dL in a nonstressed, ambulatory subject supports the diagnosis of Diabetes Mellitus.PERFORMED BY:[address] [place], [place] [phone] MEDICAL JULIAN PADILLA M.D. Performed By: #### G LULS ####Point of Care testing, BioFire Not Detectedon 03-29 BioFire Not Detected Not detected Normal Not Detecte [facility] Comment on above: Result Comment: This is a duplicate RP2.1 COVID (PCR) result to be used for statistical tracking purpose only.PERFORMED BY:[address] [place], [place] [phone] MEDICAL JULIAN PADILLA M.D. Performed By: #### B IOFIRECOVNOTDE, RESP PANEL UPP. ####[address] [address] [facility] Glucose Poct Glucometerson 0 03-29-2025 Commemt1 Glu2: Cleaned Meter Normal [facility] Comment on above: Result Comment: PERF ORMED BY:[address] [place], [place] [phone] MEDICAL JULIAN PADILLA M.D. Performed By: #### G LULS ####Point of Care testing, Glucose [Mass/Vol] 326 mg/dL Normal [facility] Comment on above: Result Comment: [place] [facility] Glucose Reference Range is dependent on time and content of last meal. Glucose of more than 200 mg/dL in a nonstressed, ambulatory subject supports the diagnosis of Diabetes Mellitus. Performed By: #### G LULS ####Point of Care testing, Glucose [Mass/Vol] 258 mg/dL Normal [facility] Comment on above: Result Comment: [place] [facility] Glucose Reference Range is dependent on time and content of last meal. Glucose of more than 200 mg/dL in a nonstressed, ambulatory subject supports the diagnosis of Diabetes Mellitus.PERFORMED BY:[place] [address] [place], [place] [phone] MEDICAL JULIAN PADILLA M.D. Performed By: #### G LULS ####Point of Care testing, Glucose [Mass/Vol] 145 mg/dL Normal [facility] Comment on above: Result Comment: [facility] Glucose Reference Range is dependent on time and content of last meal. Glucose of more than 200 mg/dL in a nonstressed, ambulatory subject supports the diagnosis of Diabetes Mellitus.PERFORMED BY:[address] [place], [place] [phone] CHRISTOPHER PADILLA M.D. Performed By: #### G LULS ####Point of Care testing, Glucose [Mass/Vol] 80 mg/dL Normal [facility] Comment on above: Result Comment: [facility] Glucose Reference Range is dependent on time and content of last meal. Glucose of more than 200 mg/dL in a nonstressed, ambulatory subject supports the diagnosis of Diabetes Mellitus.PERFORMED BY:[place] [address] [place], [place] [phone] CHRISTOPHER PADILLA M.D. Performed By: #### G LULS ####Point of Care testing, Glucose [Mass/Vol] 66 mg/dL Normal [facility] Comment on above: Result Comment: [facility] Glucose Reference Range is dependent on time and content of last meal. Glucose of more than 200 mg/dL in a nonstressed, ambulatory subject supports the diagnosis of Diabetes Mellitus.PERFORMED BY:[address] [place], [place] [phone] CHRISTOPHER PADILLA M.D. Performed By: #### G LULS ####Point of Care testing, Respiratory (Upper) Panel, P CRon 03-29-2025 Respiratory (Upper) Panel, PCR Normal [facility] Comment on above: Performed By: #### B IOFIRECOVNOTDE, RESP PANEL UPP. ####[address] [address] [facility] Glucose Poct Glucometerson 0 03-28-2025 Glucose [Mass/Vol] 293 mg/dL Normal [facility] Comment on above: Result Comment: [place] Glucose Reference Range is dependent on time and content of last meal. Glucose of more than 200 mg/dL in a nonstressed, ambulatory subject supports the diagnosis of Diabetes Mellitus.PERFORMED BY:[address] [place], [place] [phone] MEDICAL JULIAN PADILLA M.D. Performed By: #### G LULS ####Point of Care testing, Glucose [Mass/Vol] 277 mg/dL Normal [facility] Comment on above: Result Comment: [facility] Glucose Reference Range is dependent on time and content of last meal. Glucose of more than 200 mg/dL in a nonstressed, ambulatory subject supports the diagnosis of Diabetes Mellitus.PERFORMED BY:[address] [place], [place] [phone] MEDICAL JULIAN PADILLA M.D. Performed By: #### G LULS ####Point of Care testing, Glucose [Mass/Vol] 209 mg/dL Normal [facility] Comment on above: Result Comment: [facility] Glucose Reference Range is dependent on time and content of last meal. Glucose of more than 200 mg/dL in a nonstressed, ambulatory subject supports the diagnosis of Diabetes Mellitus.PERFORMED BY:[address] [place], [place] [phone] MEDICAL JULIAN PADILLA M.D. Performed By: #### G LULS ####Point of Care testing, Glucose [Mass/Vol] 92 mg/dL Normal [facility] Comment on above: Result Comment: [place] Glucose Reference Range is dependent on time and content of last meal. Glucose of more than 200 mg/dL in a nonstressed, ambulatory subject supports the diagnosis of Diabetes Mellitus.PERFORMED BY:[address], [place] [phone] MEDICAL JULIAN PADILLA M.D. Performed By: #### G DALLIN ####Point of Care testing, XR chest 1V portableon 03-28 XR chest 1V portable Normal [facility] Basic Metabolic Panelon 03-14 Anion gap [Moles/Vol] 9.5 mmol/L Normal 6.0-15.0 [facility] Comment on above: Performed By: #### B MP ####[address] [address] [facility] Calcium [Mass/Vol] 8.4 mg/dL Low 8.6-10.3 [facility] Comment on above: Performed By: #### B MP ####[address] [address] [facility] Chloride [Moles/Vol] 102 mmol/L Normal 98-107 [facility] Comment on above: Performed By: #### B MP ####[address] [address] [facility] CO2 [Moles/Vol] 30.8 mmol/L Normal 21.0-31.0 [facility] Comment on above: Performed By: #### B MP ####[address] [address] [facility] Creatinine [Mass/Vol] 1.87 mg/dL High 0.60-1.20 [facility] Comment on above: Performed By: #### B MP ####[address] [address] [facility] Creatinine Clr Calc Pharmacy 22.64 Normal [facility] Comment on above: Result Comment: PERF ORMED BY:[place] [place], [place] [phone] MEDICAL JULIAN PADILLA M.D. Performed By: #### B MP ####[address] [address] [facility] GFR/1.73 sq M.predicted MDRD (S/P/Bld) [Vol rate/Area] 27.039 mL/min/{1.73_m2} Normal [facility] Comment on above: Performed By: #### B MP ####[place] [address] [facility] Glucose [Mass/Vol] 67 mg/dL Low 70-100 [facility] Comment on above: Result Comment: [place] Glucose Reference Range is dependent on time and content of last meal. Glucose of more than 200 mg/dL in a nonstressed, ambulatory subject supports the diagnosis of Diabetes Mellitus. ADA recommended reference range Performed By: #### B MP ####[place] [address] [facility] Potassium [Moles/Vol] 4.3 mmol/L Normal 3.5-5.1 [facility] Comment on above: Performed By: #### B MP ####[place] [address] [facility] Sodium [Moles/Vol] 138 mmol/L Normal 136-145 [facility] Comment on above: Performed By: #### B MP ####[address] [address] [facility] Urea nitrogen [Mass/Vol] 52 mg/dL High 7-25 [facility] Comment on above: Performed By: #### B MP ####[address] [address] [facility] Dipstick and Microscopicon 0 03-27-2025 Appearance (U) Cloudy Critically abnormal Clear [facility] Comment on above: Order Comment: Name Collection Type:: Clean-Voided Midstream Performed By: #### A DDONUAPLUS, CUU ####[address] [address] [place] Bacteria,Urine Rare Normal None Seen [facility] Comment on above: Order Comment: Name Collection Type:: Clean-Voided Midstream Performed By: #### A DDONUAPLUS, CUU ####[address] [address] [place] Bilirubin,Urine Negative Normal Negative [facility] Comment on above: Order Comment: Name Collection Type:: Clean-Voided Midstream Performed By: #### A DDONUAPLUS, CUU ####[place] [address] [facility] Color (U) Light-Yellow Normal Yellow [facility] Comment on above: Order Comment: Name Collection Type:: Clean-Voided Midstream Performed By: #### A DDONUAPLUS, CUU ####[place] [address] [facility] Glucose Ql (U) Normal Normal Normal [facility] Comment on above: Order Comment: Name Collection Type:: Clean-Voided Midstream Performed By: #### A DDONUAPLUS, CUU ####[place] [address] [facility] Hyaline Casts,Urine None Normal 0-8 [facility] Comment on above: Order Comment: Name Collection Type:: Clean-Voided Midstream Performed By: #### A DDONUAPLUS, CUU ####[place] [address] [facility] Ketones Ql (U) Negative Normal Negative [facility] Comment on above: Order Comment: Name Collection Type:: Clean-Voided Midstream Performed By: #### A DDONUAPLUS, CUU ####[place] [address] [facility] Leukocyte esterase Test strip Ql (U) 4+ Normal Negative [facility] Comment on above: Order Comment: Name Collection Type:: Clean-Voided Midstream Performed By: #### A DDONUAPLUS, CUU ####[place] [address] [facility] Mucus,Urine Rare Normal [facility] Comment on above: Order Comment: Name Collection Type:: Clean-Voided Midstream Result Comment: PERF ORMED BY:[address] [place], [place] [phone] MEDICAL JULIAN PADILLA M.D. Performed By: #### A DDONUAPLUS, CUU ####[place] [address] [facility] Nitrite,Urine Negative Normal Negative [facility] Comment on above: Order Comment: Name Collection Type:: Clean-Voided Midstream Performed By: #### A DDONUAPLUS, CUU ####[address] [address] [facility] Occult Blood,Urine 2+ Normal Negative [facility] Comment on above: Order Comment: Name Collection Type:: Clean-Voided Midstream Result Comment: PERF ORMED BY:[address] [place], [place] [phone] MEDICAL JULIAN PADILLA M.D. Performed By: #### A DDONUAPLUS, CUU ####[place] [address] [facility] pH (U) 5.5 [pH] Normal 5.0-9.0 [facility] Comment on above: Order Comment: Name Collection Type:: Clean-Voided Midstream Performed By: #### A DDONUAPLUS, CUU ####[place] [address] [facility] Protein (U) [Mass/Vol] 70 mg/dL Normal Negative [facility] Comment on above: Order Comment: Name Collection Type:: Clean-Voided Midstream Performed By: #### A DDONUAPLUS, CUU ####[address] [address] [facility] RBC,Urine 50-100 Normal 0-4 [facility] Comment on above: Order Comment: Name Collection Type:: Clean-Voided Midstream Performed By: #### A DDONUAPLUS, CUU ####[address] [address] [facility] Specificy [place],Urine 1.016 Normal 1.001-1.030 [facility] Comment on above: Order Comment: Name Collection Type:: Clean-Voided Midstream Performed By: #### A DDONUAPLUS, CUU ####[address] [address] [facility] Squamous Epithelial Cell,Urine 3-4 Normal 0-2 [facility] Comment on above: Order Comment: Name Collection Type:: Clean-Voided Midstream Performed By: #### A DDONUAPLUS, CUU ####[place] [address] Urobilinogen,Urine Normal Normal Normal [facility] Comment on above: Order Comment: Name Collection Type:: Clean-Voided Midstream Performed By: #### A DDONUAPLUS, CUU ####[address] WBC CLUMP, Urine Rare Normal None Seen [facility] Comment on above: Order Comment: Name Collection Type:: Clean-Voided Midstream Performed By: #### A DDONUAPLUS, CUU ####[address] WBC,Urine 20-49 Normal 0-4 [facility] Comment on above: Order Comment: Name Collection Type:: Clean-Voided Midstream Performed By: #### A DDONUAPLUS, CUU ####[address] Glucose Poct Glucometerson 0 03-27-2025 Glucose [Mass/Vol] 333 mg/dL Normal [facility] Comment on above: Result Comment: [place] Glucose Reference Range is dependent on time and content of last meal. Glucose of more than 200 mg/dL in a nonstressed, ambulatory subject supports the diagnosis of Diabetes Mellitus.PERFORMED BY:[address] [place], [place] [phone] MEDICAL JULIAN PADILLA M.D. Performed By: #### G LULS ####Point of Care testing, Glucose [Mass/Vol] 286 mg/dL Normal [facility] Comment on above: Result Comment: [place] Glucose Reference Range is dependent on time and content of last meal. Glucose of more than 200 mg/dL in a nonstressed, ambulatory subject supports the diagnosis of Diabetes Mellitus.PERFORMED BY:[address] [place], [place] [phone] MEDICAL JULIAN PADILLA M.D. Performed By: #### G DALLIN ####Point of Care testing, Commemt1 Glu2: Cleaned Meter Normal [facility] Comment on above: Result Comment: PERF ORMED BY:[place] [address] [address] [place], [place] [phone] MEDICAL JULIAN PADILLA M.D. Performed By: #### G LULS ####Point of Care testing, Glucose [Mass/Vol] 248 mg/dL Normal [facility] Comment on above: Result Comment: [place] Glucose Reference Range is dependent on time and content of last meal. Glucose of more than 200 mg/dL in a nonstressed, ambulatory subject supports the diagnosis of Diabetes Mellitus. Performed By: #### G BOLS ####Point of Care testing, Glucose [Mass/Vol] 97 mg/dL Normal [facility] Comment on above: Result Comment: [place] Glucose Reference Range is dependent on time and content of last meal. Glucose of more than 200 mg/dL in a nonstressed, ambulatory subject supports the diagnosis of Diabetes Mellitus.PERFORMED BY:[address] [place], [place] [phone] MEDICAL JULIAN PADILLA M.D. Performed By: #### G DALLIN ####Point of Care testing, Urine Cultureon 03-27-2025 Bacteria identified Cx Nom (U) Normal [facility] Comment on above: Performed By: #### A DDONUAHONG, CUU ####[address] [address] [facility] Basic Metabolic Panelon 03-14 Anion gap [Moles/Vol] 13.4 mmol/L Normal 6.0-15.0 [facility] Comment on above: Performed By: #### C BC BMP ####[place] [address] [facility] Calcium [Mass/Vol] 8.4 mg/dL Low 8.6-10.3 [facility] Comment on above: Performed By: #### C BC, BMP ####[address] [place] [address] [facility] Chloride [Moles/Vol] 100 mmol/L Normal 98-107 [facility] Comment on above: Performed By: #### C BC, BMP ####[place] [address] [facility] CO2 [Moles/Vol] 25.2 mmol/L Normal 21.0-31.0 [facility] Comment on above: Performed By: #### C BC, BMP ####[place] [address] [facility] Creatinine [Mass/Vol] 2.09 mg/dL High 0.60-1.20 [facility] Comment on above: Performed By: #### C BC, BMP ####[place] [address] [facility] Creatinine Clr Calc Pharmacy 19.28 Normal [facility] Comment on above: Result Comment: PERF ORMED BY:[address] [place], [place] [phone] MEDICAL JULIAN PADILLA M.D. Performed By: #### C BC, BMP ####[place] [address] [facility] GFR/1.73 sq M.predicted MDRD (S/P/Bld) [Vol rate/Area] 23.661 mL/min/{1.73_m2} Normal [facility] Comment on above: Performed By: #### C BC, BMP ####[place] [address] [facility] Glucose [Mass/Vol] 131 mg/dL High 70-100 [facility] Comment on above: Result Comment: [place] Glucose Reference Range is dependent on time and content of last meal. Glucose of more than 200 mg/dL in a nonstressed, ambulatory subject supports the diagnosis of Diabetes Mellitus. ADA recommended reference range Performed By: #### C BC, BMP ####[place] [address] [facility] Potassium [Moles/Vol] 4.6 mmol/L Normal 3.5-5.1 [facility] Comment on above: Performed By: #### C BC, BMP ####[address] Sodium [Moles/Vol] 134 mmol/L Low 136-145 [facility] Comment on above: Performed By: #### C BC, BMP ####[place] [address] [facility] Urea nitrogen [Mass/Vol] 52 mg/dL High 7-25 [facility] Comment on above: Performed By: #### C BC, BMP ####[place] [address] [facility] Complete Blood Count Auto Di ffon 03-26-2025 Basophils (Bld) [#/Vol] 0.1 10*3/uL Normal 0.0-0.2 [facility] Comment on above: Result Comment: PERF ORMED BY:[address] [place], [place] [phone] MEDICAL JULIAN PADILLA M.D. Performed By: #### C BC, BMP ####[place] [address] [facility] Basophils/100 WBC (Bld) 0.7 % Normal . [facility] Comment on above: Performed By: #### C BC, BMP ####[place] [address] [facility] Eosinophils (Bld) [#/Vol] 0.3 10*3/uL Normal 0.0-0.45 [facility] Comment on above: Performed By: #### C BC, BMP ####[place] [address] [facility] Eosinophils/100 WBC (Bld) 2.0 % Normal . [facility] Comment on above: Performed By: #### C BC, BMP ####[address] Erythrocyte distribution width (RBC) [Ratio] 15.7 % High 11.9-15.3 [facility] [facility] Comment on above: Performed By: #### C BC, BMP ####[address] Hematocrit (Bld) [Volume fraction] 31.8 % Low 34.0-46.4 [facility] Comment on above: Performed By: #### C BC, BMP ####[address] Hemoglobin (Bld) [Mass/Vol] 10.3 g/dL Low 11.8-15.4 [facility] Comment on above: Performed By: #### C BC, BMP ####[address] Lymphocytes (Bld) [#/Vol] 1.9 10*3/uL Normal 1.00-4.8 [facility] Comment on above: Performed By: #### C NANCY, BMP ####[address] Lymphocytes/100 WBC (Bld) 14.7 % Normal . [facility] Comment on above: Performed By: #### C NANCY, BMP ####[address] MCH (RBC) [Entitic mass] 32.8 pg Normal 24.7-34.3 [facility] Comment on above: Performed By: #### C BC, BMP ####[address] MCV (RBC) [Entitic vol] 101.8 fL High 80-100 [facility] Comment on above: Performed By: #### C BC, BMP ####[place] [id number] [facility] Mean Corpuscular HGB Conc 32.3 g/dL Normal 32.0-35.0 [facility] Comment on above: Performed By: #### C BC, BMP ####[address] Monocytes (Bld) [#/Vol] 0.9 10*3/uL High 0.0-0.8 [facility] Comment on above: Performed By: #### C BC, BMP ####[address] [address] [facility] Monocytes/100 WBC (Bld) 7.0 % Normal . [facility] Comment on above: Performed By: #### C BC, BMP ####[address] [address] [facility] Neutrophils (Bld) [#/Vol] 9.8 10*3/uL High 1.8-7.7 [facility] Comment on above: Performed By: #### C BC, BMP ####[address] [address] [facility] Neutrophils/100 WBC (Bld) 75.6 % Normal . [facility] Comment on above: Performed By: #### C BC, BMP ####[place] [address] [facility] NRBC% 0.2 /100{WBC} Normal 0-0.5 [facility] Comment on above: Performed By: #### C NANCY, BMP ####[address] [address] [facility] Platelet mean volume (Bld) [Entitic vol] 9.7 fL Normal 6.3-10.7 [facility] Comment on above: Performed By: #### C BC, BMP ####[address] [address] [facility] Platelets (Bld) [#/Vol] 212 10*3/uL Normal 150-450 [facility] Comment on above: Performed By: #### C BC, BMP ####[address] [address] [facility] RBC (Bld) [#/Vol] 3.12 10*6/uL Low 3.60-5.00 [facility] Comment on above: Performed By: #### C BC, BMP ####[address] [address] [facility] WBC (Bld) [#/Vol] 13.0 10*3/uL High 3.8-11.6 [facility] Comment on above: Performed By: #### C BC, BMP ####[facility] [place] [address] [facility] White Blood Count 13.0 [CFU]/mL High 3.8-11.6 [facility] Comment on above: Performed By: #### C BC, BMP ####[facility] [place] [address] [facility] Glucose Poct Glucometerson 0 03-26-2025 Glucose [Mass/Vol] 396 mg/dL Normal [facility] Comment on above: Result Comment: [facility] Glucose Reference Range is dependent on time and content of last meal. Glucose of more than 200 mg/dL in a nonstressed, ambulatory subject supports the diagnosis of Diabetes Mellitus.PERFORMED BY:[place] [address] [place] [place], [place] [phone] MEDICAL JULIAN PADILLA M.D. Performed By: #### G LULS ####Point of Care testing, Commemt1 Glu2: Cleaned Meter Normal [facility] Comment on above: Result Comment: PERF ORMED BY:[address] [place], [place] [phone] MEDICAL JULIAN PADILLA M.D. Performed By: #### G LULS ####Point of Care testing, Glucose [Mass/Vol] 352 mg/dL Normal [facility] Comment on above: Result Comment: [facility] Glucose Reference Range is dependent on time and content of last meal. Glucose of more than 200 mg/dL in a nonstressed, ambulatory subject supports the diagnosis of Diabetes Mellitus. Performed By: #### G LULS ####Point of Care testing, Commemt1 Glu2: Cleaned Meter Normal [facility] Comment on above: Result Comment: PERF ORMED BY:[address] [place], [place] [phone] MEDICAL JULIAN PADILLA M.D. Performed By: #### G LULS ####Point of Care testing, Glucose [Mass/Vol] 148 mg/dL Normal [facility] Comment on above: Result Comment: [facility] Glucose Reference Range is dependent on time and content of last meal. Glucose of more than 200 mg/dL in a nonstressed, ambulatory subject supports the diagnosis of Diabetes Mellitus. Performed By: #### G LULS ####Point of Care testing, Glucose [Mass/Vol] 92 mg/dL Normal [facility] Comment on above: Result Comment: [place] Glucose Reference Range is dependent on time and content of last meal. Glucose of more than 200 mg/dL in a nonstressed, ambulatory subject supports the diagnosis of Diabetes Mellitus.PERFORMED BY:[place] [address] [address] [place], [place] [phone] MEDICAL JULIAN PADILLA M.D. Performed By: #### G LULS ####Point of Care testing, Glucose Poct Glucometerson 0 03-25-2025 Glucose [Mass/Vol] 364 mg/dL Normal [facility] Comment on above: Result Comment: [facility] Glucose Reference Range is dependent on time and content of last meal. Glucose of more than 200 mg/dL in a nonstressed, ambulatory subject supports the diagnosis of Diabetes Mellitus.PERFORMED BY:[place] [address] [address] [place], [place] [phone] CHRISTOPHER PADILLA M.D. Performed By: #### G LULS ####Point of Care testing, Glucose [Mass/Vol] 248 mg/dL Normal [facility] Comment on above: Result Comment: [facility] Glucose Reference Range is dependent on time and content of last meal. Glucose of more than 200 mg/dL in a nonstressed, ambulatory subject supports the diagnosis of Diabetes Mellitus.PERFORMED BY:[place] [address] [address] [place], [place] [phone] CHRISTOPHER PADILLA M.D. Performed By: #### G LULS ####Point of Care testing, Commemt1 Glu2: Cleaned Meter Normal [facility] Comment on above: Result Comment: PERF ORMED BY:[place] [address] [address] [place], [place] [phone] MEDICAL JULIAN PADILLA M.D. Performed By: #### G LULS ####Point of Care testing, Glucose [Mass/Vol] 176 mg/dL Normal [facility] Comment on above: Result Comment: [place] Glucose Reference Range is dependent on time and content of last meal. Glucose of more than 200 mg/dL in a nonstressed, ambulatory subject supports the diagnosis of Diabetes Mellitus. Performed By: #### G LULS ####Point of Care testing, Commemt1 Glu2: Cleaned Meter Normal [facility] Comment on above: Result Comment: PERF ORMED BY:[address] [place], [place] [phone] MEDICAL JULIAN PADILLA M.D. Performed By: #### G LULS ####Point of Care testing, Glucose [Mass/Vol] 153 mg/dL Normal [facility] Comment on above: Result Comment: [place] [facility] Glucose Reference Range is dependent on time and content of last meal. Glucose of more than 200 mg/dL in a nonstressed, ambulatory subject supports the diagnosis of Diabetes Mellitus. Performed By: #### G LULS ####Point of Care testing, Glucose Poct Glucometerson 0 03-24-2025 Commemt1 Glu2: Cleaned Meter Normal [facility] Comment on above: Result Comment: PERF ORMED BY:[address] [place], [place] [phone] MEDICAL JULIAN PADILLA M.D. Performed By: #### G LULS ####Point of Care testing, Glucose [Mass/Vol] 294 mg/dL Normal [facility] Comment on above: Result Comment: [place] [facility] Glucose Reference Range is dependent on time and content of last meal. Glucose of more than 200 mg/dL in a nonstressed, ambulatory subject supports the diagnosis of Diabetes Mellitus. Performed By: #### G LULS ####Point of Care testing, Commemt1 Normal [facility] Comment on above: Result Comment: Glu2 : WILL NOTIFY DR/RN Performed By: #### G LULS ####Point of Care testing, Commemt2 Cleaned Meter Normal [facility] Comment on above: Result Comment: PERF ORMED BY:[place] [address] [address] [place], [place] [phone] MEDICAL JULIAN PADILLA M.D. Performed By: #### G LULS ####Point of Care testing, Glucose [Mass/Vol] 210 mg/dL Normal [facility] Comment on above: Result Comment: [place] Glucose Reference Range is dependent on time and content of last meal. Glucose of more than 200 mg/dL in a nonstressed, ambulatory subject supports the diagnosis of Diabetes Mellitus. Performed By: #### G LULS ####Point of Care testing, Glucose [Mass/Vol] 172 mg/dL Normal [facility] Comment on above: Result Comment: [place] [facility] Glucose Reference Range is dependent on time and content of last meal. Glucose of more than 200 mg/dL in a nonstressed, ambulatory subject supports the diagnosis of Diabetes Mellitus.PERFORMED BY:[address] [place], [place] [phone] MEDICAL JULIAN PADILLA M.D. Performed By: #### G LULS ####Point of Care testing, Glucose [Mass/Vol] 136 mg/dL Normal [facility] Comment on above: Result Comment: [place] [facility] Glucose Reference Range is dependent on time and content of last meal. Glucose of more than 200 mg/dL in a nonstressed, ambulatory subject supports the diagnosis of Diabetes Mellitus.PERFORMED BY:[place] [address] [address] [place], [place] [phone] CHRISTOPHER PADILLA M.D. Performed By: #### G LULS ####Point of Care testing, Complete Blood Count Auto Di ffon 03-23-2025 Basophils (Bld) [#/Vol] 0.0 10*3/uL Normal 0.0-0.2 [facility] Comment on above: Result Comment: PERF ORMED BY:[place] [address] [address] [place], [place] [phone] CHRISTOPHER PADILLA M.D. Performed By: #### C BC, CMP, PAB ####[place] [phone] [facility] Basophils/100 WBC (Bld) 0.3 % Normal . [facility] Comment on above: Performed By: #### C BC, CMP, PAB ####[address] Eosinophils (Bld) [#/Vol] 0.0 10*3/uL Normal 0.0-0.45 [facility] Comment on above: Performed By: #### C BC, CMP, PAB ####[place] [address] [facility] Eosinophils/100 WBC (Bld) 0.0 % Normal . [facility] Comment on above: Performed By: #### C BC, CMP, PAB ####[address] Erythrocyte distribution width (RBC) [Ratio] 15.9 % High 11.9-15.3 [facility] Comment on above: Performed By: #### C BC, CMP, PAB ####[address] Hematocrit (Bld) [Volume fraction] 29.4 % Low 34.0-46.4 [facility] Comment on above: Performed By: #### C BC, CMP, PAB ####[address] Hemoglobin (Bld) [Mass/Vol] 9.5 g/dL Low 11.8-15.4 [facility] Comment on above: Performed By: #### C BC, CMP, PAB ####[address] Lymphocytes (Bld) [#/Vol] 1.4 10*3/uL Normal 1.00-4.8 [facility] Comment on above: Performed By: #### C BC, CMP, PAB ####[place] [address] [facility] Lymphocytes/100 WBC (Bld) 10.5 % Normal . [facility] Comment on above: Performed By: #### C BC, CMP, PAB ####[address] MCH (RBC) [Entitic mass] 32.4 pg Normal 24.7-34.3 [facility] Comment on above: Performed By: #### C BC, CMP, PAB ####[address] MCV (RBC) [Entitic vol] 100.3 fL High 80-100 [facility] Comment on above: Performed By: #### C BC, CMP, PAB ####[address] Mean Corpuscular HGB Conc 32.3 g/dL Normal 32.0-35.0 [facility] Comment on above: Performed By: #### C BC, CMP, PAB ####[address] Monocytes (Bld) [#/Vol] 1.1 10*3/uL High 0.0-0.8 [facility] Comment on above: Performed By: #### C BC, CMP, PAB ####[address] Monocytes/100 WBC (Bld) 8.0 % Normal . [facility] Comment on above: Performed By: #### C BC, CMP, PAB ####[address] Neutrophils (Bld) [#/Vol] 10.9 10*3/uL High 1.8-7.7 [facility] Comment on above: Performed By: #### C BC, CMP, PAB ####[address] Neutrophils/100 WBC (Bld) 81.2 % Normal . [facility] Comment on above: Performed By: #### C BC, CMP, PAB ####[address] NRBC% 0.1 /100{WBC} Normal 0-0.5 [facility] Comment on above: Performed By: #### C BC, CMP, PAB ####[address] Platelet mean volume (Bld) [Entitic vol] 10.1 fL Normal 6.3-10.7 [facility] Comment on above: Performed By: #### C BC, CMP, PAB ####[address] Platelets (Bld) [#/Vol] 171 10*3/uL Normal 150-450 [facility] Comment on above: Performed By: #### C BC, CMP, PAB ####[address] RBC (Bld) [#/Vol] 2.93 10*6/uL Low 3.60-5.00 [facility] Comment on above: Performed By: #### C BC, CMP, PAB ####[address] WBC (Bld) [#/Vol] 13.4 10*3/uL High 3.8-11.6 [facility] Comment on above: Performed By: #### C BC, CMP, PAB ####[address] White Blood Count 13.4 [CFU]/mL High 3.8-11.6 [facility] Comment on above: Performed By: #### C BC, CMP, PAB ####[address] Comprehensive Metabolic Pane ben 03-23-2025 Albumin [Mass/Vol] 3.2 g/dL Low 3.5-5.7 [facility] Comment on above: Performed By: #### C BC, CMP, PAB ####[address] Albumin/Globulin [Mass ratio] 1.1 {ratio} Normal [facility] Comment on above: Performed By: #### C BC, CMP, PAB ####[facility] [place] [address] [facility] ALP [Catalytic activity/Vol] 41 U/L Normal 34-104 [facility] Comment on above: Performed By: #### C BC, CMP, PAB ####[facility] [place] [address] [facility] ALT [Catalytic activity/Vol] U/L Low 7-52 [facility] Comment on above: Performed By: #### C BC, CMP, PAB ####[place] [address] [facility] Anion gap [Moles/Vol] 12.2 mmol/L Normal 6.0-15.0 [facility] Comment on above: Performed By: #### C BC, CMP, PAB ####[place] [address] [facility] AST [Catalytic activity/Vol] 15 U/L Normal 13-39 [facility] Comment on above: Performed By: #### C BC, CMP, PAB ####[place] [address] [facility] Bilirubin [Mass/Vol] 0.2 mg/dL Low 0.3-1.0 [facility] Comment on above: Performed By: #### C BC, CMP, PAB ####[place] [address] [facility] Calcium [Mass/Vol] 8.5 mg/dL Low 8.6-10.3 [facility] Comment on above: Performed By: #### C BC, CMP, PAB ####[place] [address] [facility] Chloride [Moles/Vol] 101 mmol/L Normal 98-107 [facility] Comment on above: Performed By: #### C BC, CMP, PAB ####[place] [address] [facility] CO2 [Moles/Vol] 27.3 mmol/L Normal 21.0-31.0 [facility] Comment on above: Performed By: #### C BC, CMP, PAB ####[address] Creatinine [Mass/Vol] 1.89 mg/dL High 0.60-1.20 [facility] Comment on above: Performed By: #### C RADHA CRUZ, PAB ####[place] [address] [facility] Creatinine Clr Calc Pharmacy 21.32 Normal [facility] Comment on above: Performed By: #### C RADHA CRUZ, PAB ####[address] GFR/1.73 sq M.predicted MDRD (S/P/Bld) [Vol rate/Area] 26.696 mL/min/{1.73_m2} Normal [facility] Comment on above: Performed By: #### C RADHA CRUZ, PAB ####[address] Globulin (S) [Mass/Vol] 2.9 g/dL Normal [facility] Comment on above: Performed By: #### C RADHA CRUZ, PAB ####[address] Glucose [Mass/Vol] 163 mg/dL High 70-100 [facility] Comment on above: Result Comment: [place] Glucose Reference Range is dependent on time and content of last meal. Glucose of more than 200 mg/dL in a nonstressed, ambulatory subject supports the diagnosis of Diabetes Mellitus. ADA recommended reference range Performed By: #### C RADHA CRUZ, PAB ####[address] Potassium [Moles/Vol] 4.5 mmol/L Normal 3.5-5.1 [facility] Comment on above: Performed By: #### C RADHA CRUZ, PAB ####[address] Protein [Mass/Vol] 6.1 g/dL Low 6.4-8.9 [facility] Comment on above: Performed By: #### C RADHA CRUZ, PAB ####[address] [place] [address] [facility] Sodium [Moles/Vol] 136 mmol/L Normal 136-145 [facility] Comment on above: Performed By: #### C RADHA CRUZ, PAB ####[facility] [place] [address] [facility] Urea nitrogen [Mass/Vol] 45 mg/dL High 7-25 [facility] Comment on above: Performed By: #### C RADHA CRUZ, PAB ####[place] [address] [facility] Glucose Poct Glucometerson 0 03-23-2025 Glucose [Mass/Vol] 322 mg/dL Normal [facility] Comment on above: Result Comment: [facility] Glucose Reference Range is dependent on time and content of last meal. Glucose of more than 200 mg/dL in a nonstressed, ambulatory subject supports the diagnosis of Diabetes Mellitus.PERFORMED BY:[address] [place], [place] [phone] MEDICAL JULIAN PADILLA M.D. Performed By: #### G LULS ####Point of Care testing, Glucose [Mass/Vol] 235 mg/dL Normal [facility] Comment on above: Result Comment: [facility] Glucose Reference Range is dependent on time and content of last meal. Glucose of more than 200 mg/dL in a nonstressed, ambulatory subject supports the diagnosis of Diabetes Mellitus.PERFORMED BY:[address] [place], [place] [phone] MEDICAL JULIAN PADILLA M.D. Performed By: #### G LULS ####Point of Care testing, Glucose [Mass/Vol] 232 mg/dL Normal [facility] Comment on above: Result Comment: [facility] Glucose Reference Range is dependent on time and content of last meal. Glucose of more than 200 mg/dL in a nonstressed, ambulatory subject supports the diagnosis of Diabetes Mellitus.PERFORMED BY:[address] [place], [place] [phone] CHRISTOPHER PADILLA M.D. Performed By: #### G LULS ####Point of Care testing, Glucose [Mass/Vol] 161 mg/dL Normal [facility] Comment on above: Result Comment: [facility] Glucose Reference Range is dependent on time and content of last meal. Glucose of more than 200 mg/dL in a nonstressed, ambulatory subject supports the diagnosis of Diabetes Mellitus.PERFORMED BY:[address] [place], [place] [phone] MEDICAL JULIAN PADILLA M.D. Performed By: #### G LULS ####Point of Care testing, Prealbuminon 03-23-2024 Prealbumin [Mass/Vol] 16.6 mg/dL Low 17.0-34.0 [facility] Comment on above: Result Comment: PERF ORMED BY:[address] [place], [place] [phone] MEDICAL JULIAN PADILLA M.D. Performed By: #### C BC, CMP, PAB ####[address] [address] [facility] Basic Metabolic Panelon Anion gap [Moles/Vol] 12.3 mmol/L Normal 6.0-15.0 [facility] Comment on above: Performed By: #### B MP, CBC ####[address] [address] [facility] Calcium [Mass/Vol] 8.1 mg/dL Low 8.6-10.3 [facility] Comment on above: Performed By: #### B MP, CBC ####[address] [address] [facility] Chloride [Moles/Vol] 96 mmol/L Low 98-107 [facility] Comment on above: Performed By: #### B MP, CBC ####[address] [address] [facility] CO2 [Moles/Vol] 28.4 mmol/L Normal 21.0-31.0 [facility] Comment on above: Performed By: #### B MP, CBC ####[place] [address] [facility] Creatinine [Mass/Vol] 1.89 mg/dL High 0.60-1.20 [facility] Comment on above: Performed By: #### B MP, CBC ####[place] [address] [facility] Creatinine Clr Calc Pharmacy 21.33 Normal [facility] Comment on above: Result Comment: PERF ORMED BY:[address] [place], [place] [phone] MEDICAL JULIAN PADILLA M.D. Performed By: #### B MARIO, CBC ####[place] [address] [facility] GFR/1.73 sq M.predicted MDRD (S/P/Bld) [Vol rate/Area] 26.696 mL/min/{1.73_m2} Normal [facility] Comment on above: Performed By: #### B MARIO, CBC ####[address] Glucose [Mass/Vol] 374 mg/dL High 70-100 [facility] Comment on above: Result Comment: [place] Glucose Reference Range is dependent on time and content of last meal. Glucose of more than 200 mg/dL in a nonstressed, ambulatory subject supports the diagnosis of Diabetes Mellitus. ADA recommended reference range Performed By: #### B MP, CBC ####[place] [address] [facility] Potassium [Moles/Vol] 4.7 mmol/L Normal 3.5-5.1 [facility] Comment on above: Performed By: #### B MP, CBC ####[place] [address] [place] Sodium [Moles/Vol] 132 mmol/L Low 136-145 [facility] Comment on above: Performed By: #### B MP, CBC ####[place] [address] [facility] Urea nitrogen [Mass/Vol] 40 mg/dL High 7-25 [facility] Comment on above: Performed By: #### B MP, CBC ####[address] [address] [facility] Complete Blood Count Auto Di ffon 03-22-2025 Basophils (Bld) [#/Vol] 0.0 10*3/uL Normal 0.0-0.2 [facility] Comment on above: Result Comment: PERF ORMED BY:[address] [place], [place] [phone] MEDICAL DIRECTORALINA PADILLA M.D. Performed By: #### B MP, CBC ####[place] [phone] [facility] Basophils/100 WBC (Bld) 0.2 % Normal . [facility] Comment on above: Performed By: #### B MP, CBC ####[place] [id number] [facility] Eosinophils (Bld) [#/Vol] 0.0 10*3/uL Normal 0.0-0.45 [facility] Comment on above: Performed By: #### B MP, CBC ####[place] [address] [facility] Eosinophils/100 WBC (Bld) 0.0 % Normal . [facility] Comment on above: Performed By: #### B MP, CBC ####[place] [address] [facility] Erythrocyte distribution width (RBC) [Ratio] 15.3 % Normal 11.9-15.3 [facility] Comment on above: Performed By: #### B MP, CBC ####[place] [address] [facility] Hematocrit (Bld) [Volume fraction] 31.2 % Low 34.0-46.4 [facility] Comment on above: Performed By: #### B MP, CBC ####[place] [address] [facility] Hemoglobin (Bld) [Mass/Vol] 10.2 g/dL Low 11.8-15.4 [facility] Comment on above: Performed By: #### B MP, CBC ####[address] Lymphocytes (Bld) [#/Vol] 1.1 10*3/uL Normal 1.00-4.8 [facility] Comment on above: Performed By: #### B MP, CBC ####[place] [address] [facility] Lymphocytes/100 WBC (Bld) 9.2 % Normal . [facility] Comment on above: Performed By: #### B MP, CBC ####[place] [address] [facility] MCH (RBC) [Entitic mass] 32.8 pg Normal 24.7-34.3 [facility] Comment on above: Performed By: #### B MP, CBC ####[address] MCV (RBC) [Entitic vol] 100.3 fL High 80-100 [facility] Comment on above: Performed By: #### B MP, CBC ####[address] Mean Corpuscular HGB Conc 32.7 g/dL Normal 32.0-35.0 [facility] Comment on above: Performed By: #### B MP, CBC ####[address] Monocytes (Bld) [#/Vol] 0.8 10*3/uL Normal 0.0-0.8 [facility] Comment on above: Performed By: #### B MP, CBC ####[place] [address] [facility] Monocytes/100 WBC (Bld) 7.1 % Normal . [facility] Comment on above: Performed By: #### B MP, CBC ####[address] Neutrophils (Bld) [#/Vol] 9.8 10*3/uL High 1.8-7.7 [facility] Comment on above: Performed By: #### B MP, CBC ####[address] [address] [facility] Neutrophils/100 WBC (Bld) 83.5 % Normal . [facility] Comment on above: Performed By: #### B MP, CBC ####[address] [address] [facility] NRBC% 0.1 /100{WBC} Normal 0-0.5 [facility] Comment on above: Performed By: #### B MP, CBC ####[address] [address] [facility] Platelet mean volume (Bld) [Entitic vol] 9.5 fL Normal 6.3-10.7 [facility] Comment on above: Performed By: #### B MP, CBC ####[address] [address] [facility] Platelets (Bld) [#/Vol] 178 10*3/uL Normal 150-450 [facility] Comment on above: Performed By: #### B MP, CBC ####[address] [address] [facility] RBC (Bld) [#/Vol] 3.11 10*6/uL Low 3.60-5.00 [facility] Comment on above: Performed By: #### B MP, CBC ####[address] [address] [facility] WBC (Bld) [#/Vol] 11.8 10*3/uL High 3.8-11.6 [facility] Comment on above: Performed By: #### B MP, CBC ####[address] [address] [facility] White Blood Count 11.8 [CFU]/mL High 3.8-11.6 [facility] Comment on above: Performed By: #### B MP, CBC ####[address] [address] [facility] Glucose Poct Glucometerson 0 03-22-2025 Glucose [Mass/Vol] 311 mg/dL Normal [facility] Comment on above: Result Comment: Garita om Glucose Reference Range is dependent on time and content of last meal. Glucose of more than 200 mg/dL in a nonstressed, ambulatory subject supports the diagnosis of Diabetes Mellitus.PERFORMED BY:[place] [address] [place], [place] [phone] MEDICAL JULIAN PADILLA M.D. Performed By: #### G LULS ####Point of Care testing, Commemt1 Glu2: Cleaned Meter Normal [facility] Comment on above: Result Comment: PERF ORMED BY:[address] [place], [place] [phone] MEDICAL JULIAN PADILLA M.D. Performed By: #### G LULS ####Point of Care testing, Glucose [Mass/Vol] 377 mg/dL Normal [facility] Comment on above: Result Comment: Garita om Glucose Reference Range is dependent on time and content of last meal. Glucose of more than 200 mg/dL in a nonstressed, ambulatory subject supports the diagnosis of Diabetes Mellitus. Performed By: #### G LULS ####Point of Care testing, Commemt1 Normal [facility] Comment on above: Result Comment: Glu2 : WILL NOTIFY DR/RNPERFORMED BY:[address] [place], [place] [phone] MEDICAL JULIAN PADILLA M.D. Performed By: #### G LULS ####Point of Care testing, Glucose [Mass/Vol] 456 mg/dL Off scale high [facility] Comment on above: Result Comment: Garita om Glucose Reference Range is dependent on time and content of last meal. Glucose of more than 200 mg/dL in a nonstressed, ambulatory subject supports the diagnosis of Diabetes Mellitus. Performed By: #### G LULS ####Point of Care testing, Commemt1 Normal [facility] Comment on above: Result Comment: Glu2 : WILL NOTIFY DR/RN Performed By: #### G LULS ####Point of Care testing, Commemt2 Will Repeat Test Normal [facility] Comment on above: Result Comment: PERF ORMED BY:[place] [address] [address] [place] [phone] MEDICAL JULIAN PADILLA M.D. Performed By: #### G LULS ####Point of Care testing, Glucose [Mass/Vol] 419 mg/dL Off scale high [facility] Comment on above: Result Comment: Garita om Glucose Reference Range is dependent on time and content of last meal. Glucose of more than 200 mg/dL in a nonstressed, ambulatory subject supports the diagnosis of Diabetes Mellitus. Performed By: #### G LULS ####Point of Care testing, Glucose [Mass/Vol] 378 mg/dL Normal [facility] Comment on above: Result Comment: Garita om Glucose Reference Range is dependent on time and content of last meal. Glucose of more than 200 mg/dL in a nonstressed, ambulatory subject supports the diagnosis of Diabetes Mellitus.PERFORMED BY:[place] [address] [place] [place], [place] [phone] MEDICAL JULIAN PADILLA M.D. Performed By: #### G LULS ####Point of Care testing, Glucose [Mass/Vol] 340 mg/dL Normal [facility] Comment on above: Result Comment: Garita om Glucose Reference Range is dependent on time and content of last meal. Glucose of more than 200 mg/dL in a nonstressed, ambulatory subject supports the diagnosis of Diabetes Mellitus.PERFORMED BY:[place] [address] [address] [place], [place] [phone] CHRISTOPHER PADILLA M.D. Performed By: #### G LULS ####Point of Care testing, Glucose Poct Glucometerson 0 03-21-2025 Commemt1 Normal [facility] Comment on above: Result Comment: Glu2 : Result Not ConfirmedPERFORMED BY:[place] [address] [address] [place] [phone] MEDICAL JULIAN PADILLA M.D. Performed By: #### G LULS ####Point of Care testing, Glucose [Mass/Vol] 442 mg/dL Off scale high [facility] Comment on above: Result Comment: Garita om Glucose Reference Range is dependent on time and content of last meal. Glucose of more than 200 mg/dL in a nonstressed, ambulatory subject supports the diagnosis of Diabetes Mellitus. Performed By: #### G LULS ####Point of Care testing, Commemt1 Normal [facility] Comment on above: Result Comment: Glu2 : Will Repeat TestPERFORMED BY:[address] [place], [place] [phone] MEDICAL JULIAN PADILLA M.D. Performed By: #### G LULS ####Point of Care testing, Glucose [Mass/Vol] 428 mg/dL Off scale high [facility] Comment on above: Result Comment: Garita om Glucose Reference Range is dependent on time and content of last meal. Glucose of more than 200 mg/dL in a nonstressed, ambulatory subject supports the diagnosis of Diabetes Mellitus. Performed By: #### G LULS ####Point of Care testing, Glucose [Mass/Vol] 188 mg/dL Normal [facility] Comment on above: Result Comment: Garita om Glucose Reference Range is dependent on time and content of last meal. Glucose of more than 200 mg/dL in a nonstressed, ambulatory subject supports the diagnosis of Diabetes Mellitus.PERFORMED BY:[address] [place]RET[place]aul[place], [place] [phone] CHRISTOPHER PADILLA M.D. Performed By: #### G LULS ####Point of Care testing, Glucose [Mass/Vol] 132 mg/dL Normal [facility] Comment on above: Result Comment: Garita om Glucose Reference Range is dependent on time and content of last meal. Glucose of more than 200 mg/dL in a nonstressed, ambulatory subject supports the diagnosis of Diabetes Mellitus.PERFORMED BY:[place] [address] [address] [place], [place] [phone] MEDICAL JULIAN PADILLA M.D. Performed By: #### G LULS ####Point of Care testing, Ben 03-21-2025 L Normal [facility] XR hip LT 1Von 03-21-2025 XR hip LT 1V Normal [facility] XR low pelvis w/LT x-table h ipon 03-21-2025 XR low pelvis w/LT x-table hip Normal [facility] X-ray reportOrdered By: Andrea Iraheta on 03-09-2025 Study report [facility] [address] [place] [address] XRay Report Signed Patient: Lexi Tatum MR#: [id number] : 1945 Acct:[id number] Age/Sex: 79 / F ADM Date: 5 [place] [facility] [place] Type: [facility] Attending [...] Jr., DPaulOPaul 03/09/2025 4:45 PM Dictation Location: [place] [address] Transcribed By: [facility] 03/09/25 164 Dictated By: Earnest Iraheta Jr, DO 03/09/25 164 Signed By: 03/09/251644 [facility] XR hip LT min 2V(w/wo pelvis )*on 03-09-2025 XR hip LT min 2V(w/wo pelvis)* Normal [facility] Appearance of UrineOrdered B y: Da Lozano on 03-03-2025 Appearance (U) Turbid Critically abnormal Clear [facility] Comment on above: Order Comment: Name Collection Type:: Clean-Voided Midstream Performed By: #### C UU, ADDONUAPLUS ####[address] Bacteria [Presence] in Urine by AutomatedOrdered By: Da Lozano on 03-03-2025 Bacteria Auto Ql (U) 2+ [HPF] High None Seen [facility] Basic Metabolic Panelon 02-12 GFR/1.73 sq M.predicted MDRD (S/P/Bld) [Vol rate/Area] 25.714 mL/min/{1.73_m2} Normal [facility] Comment on above: Performed By: #### C BC, BMP ####[address]#### FRUC ####[facility] , Basophils [#/volume] in Bloo d by Automated countOrdered By: Da Lozano on 03-03-2025 Basophils (Bld) [#/Vol] 0.1 10*3/uL Normal 0.0-0.2 [facility] Comment on above: Result Comment: PERF ORMED BY:[address] [place], [place] [phone] MEDICAL JULIAN PADILLA M.D. Performed By: #### C BC, BMP ####[address]#### FRUC ####[facility] , Basophils/100 leukocytes in Blood by Automated countOrdered By: Da Lozano on 03-03-2025 Basophils/100 WBC (Bld) 0.8 % Normal . [facility] Comment on above: Performed By: #### C BC, BMP ####[address]#### FRUC ####[facility] , Bilirubin Test strip Ql (U)O rdered By: Da Lozano on 03-03-2025 Bilirubin Ql (U) Negative Negative [facility] Calcium [Mass/volume] in Ser um or PlasmaOrdered By: Da Lozano on 03-03-2025 Calcium [Mass/Vol] 9.6 mg/dL Normal 8.6-10.3 [facility] Comment on above: Result Comment: PERF ORMED BY:[address] [place], [place] [phone] MEDICAL DIRECTORALINA PADILLA M.D. Performed By: #### C BC, BMP ####[address]#### FRUC ####[facility] , Carbon dioxide, total [Moles /volume] in Serum or PlasmaOrdered By: Da Lozano on 03-03-2025 CO2 [Moles/Vol] 32.6 mmol/L High 21.0-31.0 [facility] Comment on above: Performed By: #### C BC, BMP ####[address]#### FRUC ####[facility] , Chloride [Moles/volume] in S [place] or PlasmaOrdered By: Da Lozano on 03-03-2025 Chloride [Moles/Vol] 100 mmol/L Normal 98-107 [facility] Comment on above: Performed By: #### C BC, BMP ####[address]#### FRUC ####[facility] , Color of Urine by AutoOrdere d By: Da Lozano on 03-03-2025 Color (U) Light-orange Critically abnormal Yellow [facility] Comment on above: Order Comment: Name Collection Type:: Clean-Voided Midstream Performed By: #### C UU, ADDONUAPLUS ####[address] Complete Blood Count Auto Di ffon 03-03-2025 Mean Corpuscular HGB Conc 32.5 g/dL Normal 32.0-35.0 [facility] Comment on above: Performed By: #### C BC, BMP ####[address]#### FRUC ####[facility] , NRBC% 0.1 /100{WBC} Normal 0-0.5 [facility] Comment on above: Performed By: #### C BC, BMP ####[address]#### FRUC ####[facility] , White Blood Count 10.2 [CFU]/mL Normal 3.8-11.6 [facility] Comment on above: Performed By: #### C BC, BMP ####[address]#### FRUC ####[facility] , Creatinine [Mass/volume] in Serum or PlasmaOrdered By: Da Lozano on 03-03-2025 Creatinine [Mass/Vol] 1.95 mg/dL High 0.60-1.20 [facility] Comment on above: Performed By: #### C BC, BMP ####[address]#### FRUC ####[facility] , Dipstick and Microscopicon 0 03-03-2025 Bacteria,Urine 2+ [HPF] Normal None Seen [facility] Comment on above: Order Comment: Name Collection Type:: Clean-Voided Midstream Performed By: #### C UU, ADDONUAPLUS ####[address] Bilirubin,Urine Negative Normal Negative [facility] Comment on above: Order Comment: Name Collection Type:: Clean-Voided Midstream Performed By: #### C UU, ADDONUAPLUS ####[address] Glucose Ql (U) Normal Normal Normal [facility] Comment on above: Order Comment: Name Collection Type:: Clean-Voided Midstream Performed By: #### C UU, ADDONUAPLUS ####[address] [address] [facility] Hyaline Casts,Urine None Normal 0-8 [facility] Comment on above: Order Comment: Name Collection Type:: Clean-Voided Midstream Performed By: #### C UU, ADDONUAPLUS ####[place] [phone] [facility] Mucus,Urine Rare Normal [facility] Comment on above: Order Comment: Name Collection Type:: Clean-Voided Midstream Result Comment: PERF ORMED BY:[address] [place], [place] [phone] MEDICAL JULIAN PADILLA M.D. Performed By: #### C UU, ADDONUAPLUS ####[place] [address] [facility] Nitrite,Urine Negative Normal Negative [facility] Comment on above: Order Comment: Name Collection Type:: Clean-Voided Midstream Performed By: #### C UU, ADDONUAPLUS ####[place] [address] [facility] Non-Squamous Epithelial Cell,U 3-4 Normal None Seen [facility] Comment on above: Order Comment: Name Collection Type:: Clean-Voided Midstream Performed By: #### C UU, ADDONUAPLUS ####[place] [phone] [facility] Occult Blood,Urine 1+ Normal Negative [facility] Comment on above: Order Comment: Name Collection Type:: Clean-Voided Midstream Result Comment: PERF ORMED BY:[address] [place], [place] [phone] MEDICAL JULIAN PADILLA M.D. Performed By: #### C UU, ADDONUAPLUS ####[address] [place] [address] [place] RBC,Urine 10-19 Normal 0-4 [facility] Comment on above: Order Comment: Name Collection Type:: Clean-Voided Midstream Performed By: #### C UU, ADDONUAPLUS ####[address] Specificy [place],Urine 1.012 Normal 1.001-1.030 [facility] Comment on above: Order Comment: Name Collection Type:: Clean-Voided Midstream Performed By: #### C UU, ADDONUAPLUS ####[address] Squamous Epithelial Cell,Urine 10-19 Normal 0-2 [facility] Comment on above: Order Comment: Name Collection Type:: Clean-Voided Midstream Performed By: #### C UU, ADDONUAPLUS ####[address] Urobilinogen,Urine Normal Normal Normal [facility] Comment on above: Order Comment: Name Collection Type:: Clean-Voided Midstream Performed By: #### C UU, ADDONUAPLUS ####[address] WBC CLUMP, Urine Many Normal None Seen [facility] Comment on above: Order Comment: Name Collection Type:: Clean-Voided Midstream Performed By: #### C UU, ADDONUAPLUS ####[address] WBC,Urine Innumerable Normal 0-4 [facility] Comment on above: Order Comment: Name Collection Type:: Clean-Voided Midstream Performed By: #### C UU, ADDONUAPLUS ####[address] ECG 12 lead ECGon 03-03-2025 ECG 12 lead ECG Normal [facility] Eosinophils [#/volume] in Bl ood by Automated countOrdered By: Da Lozano on 03-03-2025 Eosinophils (Bld) [#/Vol] 0.3 10*3/uL Normal 0.0-0.45 [facility] Comment on above: Performed By: #### C BC, BMP ####[facility] [place] [address] [place]#### FRUC ####[facility] , Eosinophils/100 leukocytes i n Blood by Automated countOrdered By: Da Lozano on 03-03-2025 Eosinophils/100 WBC (Bld) 2.8 % Normal . [facility] Comment on above: Performed By: #### C BC, BMP ####[facility] [place] [address] [place]#### FRUC ####[facility] , Epithelial cells.non-squamou s [#/area] in Urine sediment by Automated countOrdered By: Da Lozano on 03-03-2025 Epithelial cells.non-squamous Auto (Urine sed) [#/Area] 3-4 [HPF] High None Seen [facility] Epithelial cells.squamous [# /area] in Urine sediment by Automated countOrdered By: Da Lozano on 03-03-2025 Epithelial cells.squamous Auto (Urine sed) [#/Area] 10-19 [HPF] High 0-2 [facility] Erythrocyte distribution wid th [Ratio] by Automated countOrdered By: Da Lozano on 03-03-2025 Erythrocyte distribution width (RBC) [Ratio] 16.2 % High 11.9-15.3 [facility] Comment on above: Performed By: #### C BC, BMP ####[facility] [place] [address] [place]#### FRUC ####[facility] , Erythrocytes [#/area] in Uri ne sediment by Automated countOrdered By: Da Lozano on 03-03-2025 RBC Auto (Urine sed) [#/Area] 10-19 [HPF] High 0-4 [facility] Erythrocytes [#/volume] in B lood by Automated countOrdered By: Da Lozano on 03-03-2025 RBC (Bld) [#/Vol] 3.92 10*6/uL Normal 3.60-5.00 [facility] Comment on above: Performed By: #### C BC, BMP ####[facility] [place] [id number] [place]#### FRUC ####[facility] , Fructosamineon 03-03-2025 Fructosamine 280 umol/L Normal 0-285 [facility] Comment on above: Result Comment: Publ ished reference interval for apparently healthy subjects between age 20 and 60 is 205 - 285 umol/L and in a poorly controlled diabetic population is 228 - 563 umol/L with a mean of 396 umol/L. Performed at: [facility] [place] [address] [place], [place] [id number] Fur Buyer: Mohan Talbert PhD, Phone: [phone] BY:[address] [place], [place] [phone] MEDICAL DIRECTORALINA PADILLA M.D. Performed By: #### C BC, BMP ####[facility] [place] [phone] [place]#### FRUC ####[facility] , Fructosamine [Moles/volume] in Serum or PlasmaOrdered By: Da Lozano on 03-03-2025 Fructosamine [Moles/Vol] 280 umol/L 0-285 [facility] Comment on above: Published reference interval for apparently healthysubjects between age 20 and 60 is 205 - 285 umol/L and in apoorly controlled diabetic population is 228 - 563 umol/Lwith a mean of 396 umol/L.Performed at: [facility] [id number] [place], [place] [id number] Director: Mohan Talbert PhD, Phone: [phone] Glomerular filtration rate [ Volume Rate/Area] in Serum, Plasma or Blood by CreatinineOrdered By: Da Lozano on 03-03-2025 Glomerular filtration rate [Volume Rate/Area] in Serum, Plasma or Blood by Creatinine 25.714 mL/Min [facility] Glucose [Mass/volume] in Ser um or PlasmaOrdered By: Da Lozano on 03-03-2025 Glucose [Mass/Vol] 125 mg/dL High 70-100 [facility] Comment on above: ADA recommended refe rence rangeRandom Glucose Reference Range is dependent on time and content of last meal. Glucose of more than 200 mg/dL in a nonstressed, ambulatory subject supports the diagnosis of Diabetes Mellitus. Result Comment: Garita om Glucose Reference Range is dependent on time and content of last meal. Glucose of more than 200 mg/dL in a nonstressed, ambulatory subject supports the diagnosis of Diabetes Mellitus. ADA recommended reference range Performed By: #### C BC, BMP ####[place] [address] [address]#### FRUC ####[facility] , Glucose [Mass/volume] in Uri ne by Test stripOrdered By: Da Lozano on 03-03-2025 Glucose Test strip (U) [Mass/Vol] Normal mg/dL Normal [facility] Hematocrit [Volume Fraction] of Blood by Automated countOrdered By: Da Lozano on 03-03-2025 Hematocrit (Bld) [Volume fraction] 39.5 % Normal 34.0-46.4 [facility] Comment on above: Performed By: #### C BC, BMP ####[address]#### FRUC ####[facility] , Hemoglobin Test strip Ql (U) Ordered By: Da Lozano on 03-03-2025 Hemoglobin Ql (U) 1+ High Negative [facility] Hemoglobin [Mass/volume] in BloodOrdered By: Da Lozano on 03-03-2025 Hemoglobin (Bld) [Mass/Vol] 12.8 g/dL Normal 11.8-15.4 [facility] Comment on above: Performed By: #### C BC, BMP ####[place] [address] [place]#### FRUC ####[facility] , Hyaline casts [#/area] in Ur ine sediment by Automated countOrdered By: Da Lozano on 03-03-2025 Hyaline casts Auto (Urine sed) [#/Area] None [LPF] 0-8 [facility] Ketones [Presence] in Urine by Test stripOrdered By: Da Lozano on 03-03-2025 Ketones Ql (U) Negative Normal Negative [facility] Comment on above: Order Comment: Name Collection Type:: Clean-Voided Midstream Performed By: #### C UU, ADDONUAPLUS ####[facility] [address] Leukocyte clumps [Presence] in Urine by AutomatedOrdered By: Da Lozano on 03-03-2025 Leukocyte clumps Auto Ql (U) Many [LPF] High None Seen [facility] Leukocyte esterase [Presence ] in Urine by Test stripOrdered By: Da Lozano on 03-03-2025 Leukocyte esterase Test strip Ql (U) 4+ Normal Negative [facility] Comment on above: Order Comment: Name Collection Type:: Clean-Voided Midstream Performed By: #### C UU, ADDONUAPLUS ####[address] Leukocytes [#/area] in Urine sediment by Automated countOrdered By: Da Lozano on 03-03-2025 WBC Auto (Urine sed) [#/Area] Innumerable [HPF] High 0-4 [facility] Leukocytes [#/volume] correc suzi for nucleated erythrocytes in Blood by Automated counOrdered By: Da Lozano on 03-03-2025 WBC corrected for nucl RBC Auto (Bld) [#/Vol] 10.2 10*3/uL 3.8-11.6 [facility] Leukocytes [#/volume] in Blo od by Automated countOrdered By: Da Lozano on 03-03-2025 WBC (Bld) [#/Vol] 10.2 10*3/uL Normal 3.8-11.6 [facility] Comment on above: Performed By: #### C BC, BMP ####[facility] [id number] [place] [address] [place]#### FRUC ####[facility] , Lymphocytes [#/volume] in Bl ood by Automated countOrdered By: Da Lozano on 03-03-2025 Lymphocytes (Bld) [#/Vol] 2.1 10*3/uL Normal 1.00-4.8 [facility] Comment on above: Performed By: #### C BC, BMP ####[place] [address] [place]#### FRUC ####[facility] , Lymphocytes/100 leukocytes i n Blood by Automated countOrdered By: Da Lozano on 03-03-2025 Lymphocytes/100 WBC (Bld) 21.0 % Normal . [facility] Comment on above: Performed By: #### C BC, BMP ####[place] [address] [place]#### FRUC ####[facility] , MCH [Entitic mass] by Automa suzi countOrdered By: Da Lozano on 03-03-2025 MCH (RBC) [Entitic mass] 32.8 pg Normal 24.7-34.3 [facility] Comment on above: Performed By: #### C BC, BMP ####[place] [address] [place]#### FRUC ####[facility] , MCHC Auto (RBC) [Mass/Vol]Or dered By: Da Lozano on 03-03-2025 MCHC (RBC) [Mass/Vol] 32.5 g/dL 32.0-35.0 [facility] MCV [Entitic volume] by Auto mated countOrdered By: Da Lozano on 03-03-2025 MCV (RBC) [Entitic vol] 100.8 fL High 80-100 [facility] Comment on above: Performed By: #### C BC, BMP ####[place] [address] [place]#### FRUC ####[facility] , Monocytes [#/volume] in Bloo d by Automated countOrdered By: Da Lozano on 03-03-2025 Monocytes (Bld) [#/Vol] 0.9 10*3/uL High 0.0-0.8 [facility] Comment on above: Performed By: #### C BC, BMP ####[place] [address] [place]#### FRUC ####[facility] , Monocytes/100 leukocytes in Blood by Automated countOrdered By: Da Lozano on 03-03-2025 Monocytes/100 WBC (Bld) 8.4 % Normal . [facility] Comment on above: Performed By: #### C BC, BMP ####[address]#### FRUC ####[facility] , Mucus [Presence] in Urine by AutomatedOrdered By: Da Lozano on 03-03-2025 Mucus Auto Ql (U) Rare [LPF] [facility] Neutrophils [#/volume] in Bl ood by Automated countOrdered By: Da Lozano on 03-03-2025 Neutrophils (Bld) [#/Vol] 6.8 10*3/uL Normal 1.8-7.7 [facility] Comment on above: Performed By: #### C BC, BMP ####[place] [address] [place]#### FRUC ####[facility] , Neutrophils/100 leukocytes i n Blood by Automated countOrdered By: Da Lozano on 03-03-2025 Neutrophils/100 WBC (Bld) 67.0 % Normal . [facility] Comment on above: Performed By: #### C BC, BMP ####[place] [address] [place]#### FRUC ####[facility] , Nitrite Test strip Ql (U)Ord ered By: Da Lozano on 03-03-2025 Nitrite Ql (U) Negative Negative [facility] No Panel InformationOrdered By: Da Lozano on 03-03-2025 Pharmacy Creatinine Clearance (Chem N/A [facility] N/A [facility] Nucleated erythrocytes [Pres ence] in Blood by Automated countOrdered By: Da Lozano on 03-03-2025 Nucleated RBC Auto Ql (Bld) 0.1 /100{WBC} 0-0.5 [facility] Platelet mean volume [Entiti c volume] in Blood by Automated countOrdered By: Da Lozano on 03-03-2025 Platelet mean volume (Bld) [Entitic vol] 9.2 fL Normal 6.3-10.7 [facility] Comment on above: Performed By: #### C BC, BMP ####[address]#### FRUC ####[facility] , Platelets [#/volume] in Bloo d by Automated countOrdered By: Da Lozano on 03-03-2025 Platelets (Bld) [#/Vol] 220 10*3/uL Normal 150-450 [facility] Comment on above: Performed By: #### C NANCY, BMP ####[place] [address] [address]#### FRUC ####[facility] , Potassium [Moles/volume] in Serum or PlasmaOrdered By: Da Lozano on 03-03-2025 Potassium [Moles/Vol] 4.9 mmol/L Normal 3.5-5.1 [facility] Comment on above: Performed By: #### C BC, BMP ####[place] [address] [place] [address] [place]#### FRUC ####[facility] , Protein [Mass/volume] in Uri ne by Test stripOrdered By: Da Lozano on 03-03-2025 Protein (U) [Mass/Vol] 100 mg/dL Normal Negative [facility] Comment on above: Order Comment: Name Collection Type:: Clean-Voided Midstream Performed By: #### C UU, ADDONUAPLUS ####[address] Serum or plasma anion gap de terminationOrdered By: Da Lozano on 03-03-2025 Anion gap [Moles/Vol] 10.3 mmol/L Normal 6.0-15.0 [facility] Comment on above: Performed By: #### C BC, BMP ####[address]#### FRUC ####[facility] , Sodium [Moles/volume] in Ser um or PlasmaOrdered By: Da Lozano on 03-03-2025 Sodium [Moles/Vol] 138 mmol/L Normal 136-145 [facility] Comment on above: Performed By: #### C BC, BMP ####[address]#### FRUC ####[facility] , Specific gravity Test strip (U) [Rel density]Ordered By: Da Lozano on 03-03-2025 Specific gravity (U) [Rel density] 1.012 1.001-1.030 [facility] Urea nitrogen [Mass/volume] in Serum or PlasmaOrdered By: Da Lozano on 03-03-2025 Urea nitrogen [Mass/Vol] 46 mg/dL High 7-25 [facility] Comment on above: Performed By: #### C BC, BMP ####[address]#### FRUC ####[facility] , Urine Cultureon 03-03-2025 Bacteria identified Cx Nom (U) Urine Culture Results >100,000 col/ml Mixed Bacterial Skin Contaminants 2 Days PERFORMED BY: [facility] [address] [place] [address] PATHOLOGIST TAG WRITER ALINA PADILLA M.D. Normal [facility] Comment on above: Performed By: #### C UU, ADDONUAPLUS ####[facility] [id number] [place] [id number] [facility] Urine cultureOrdered By: Landon Lozano on 03-03-2025 Bacteria identified Cx Nom (U) [facility] Urobilinogen Test strip (U) [Mass/Vol]Ordered By: Da Lozano on 03-03-2025 Urobilinogen (U) [Mass/Vol] Normal mg/dL Normal [facility] pH of Urine by Test stripOrd ered By: Da Lozano on 03-03-2025 pH (U) 7.0 [pH] Normal 5.0-9.0 [facility] Comment on above: Order Comment: Name Collection Type:: Clean-Voided Midstream Performed By: #### C UU, ADDONUAPLUS ####[facility] [id number] [place] [id number] [facility] Erythrocyte distribution wid th Auto (RBC) [Ratio]Ordered By: Leroy Ashby on 02-07-2025 Erythrocyte distribution width (RBC) [Ratio] 15.5 % High 11.0-15.0 [facility] Estimated glomerular filtrat ion rate (GFR) non- AmericanOrdered By: Leroy Ashby on 02-07-2025 GFR/1.73 sq M.predicted among non-blacks MDRD (S/P/Bld) [Vol rate/Area] 26 mL/min/{1.73_m2} Low >=60 mL/min/1.73m 2 [facility] Hematocrit Auto (Bld) [Volum e fraction]Ordered By: Leroy Ashby on 02-07-2025 Hematocrit (Bld) [Volume fraction] 36.6 % 36.0-48.0 [facility] Hemoglobin [Mass/volume] in BloodOrdered By: Leroy Ashby on 02-07-2025 Hemoglobin (Bld) [Mass/Vol] 11.5 g/dL Low 12.0-16.0 [facility] Iron binding capacity [Mass/ volume] in Serum or PlasmaOrdered By: Leroy Ashby on 02-07-2025 Iron binding capacity [Mass/Vol] 211.0 ug/dL Low 250.0-450.0 [facility] Iron saturation [Mass Fracti on] in Serum or PlasmaOrdered By: Leroy Ashby on 02-07-2025 Iron saturation [Mass fraction] 19.4 % [facility] Laboratory - Chemistry and C hemistry - challengeOrdered By: Leroy Ashby on 02-07-2025 Albumin [Mass/Vol] 2.8 g/dL Low 3.4-5.0 [facility] Calcium [Mass/Vol] 9.5 mg/dL 8.5-10.1 [facility] Chloride [Moles/Vol] 98 mmol/L 98-107 [facility] CO2 [Moles/Vol] 28.7 mmol/L 21.0-32.0 [facility] Creatinine [Mass/Vol] 1.88 mg/dL High 0.55-1.02 [facility] Ferritin [Mass/Vol] 187.0 ng/mL 8.0-252.0 [facility] GFR/1.73 sq M.predicted MDRD (S/P/Bld) [Vol rate/Area] 31 mL/min/{1.73_m2} Low >=60 mL/min/1.73m 2 [facility] Glucose [Mass/Vol] 206 mg/dL High 74-106 [facility] Iron [Mass/Vol] 41.0 ug/dL Low 50.0-170.0 [facility] Potassium [Moles/Vol] 4.1 mmol/L 3.5-5.1 [facility] Sodium [Moles/Vol] 135 mmol/L Low 136-145 [facility] Urate [Mass/Vol] 3.8 mg/dL 2.6-6.0 [facility] Urea nitrogen [Mass/Vol] 59.0 mg/dL High 7.0-18.0 [facility] Urea nitrogen/Creatinine [Mass ratio] 31.4 mg/mg [facility] Bilirubin Ql (U) Negative NEGATIVE [facility] Glucose (U) [Mass/Vol] Negative NEGATIVE [facility] Ketones Ql (U) Negative NEGATIVE [facility] pH (U) 6.5 [pH] 5.0-9.0 [facility] Specific gravity (U) [Rel density] 1.015 1.005-1.025 [facility] Laboratory - Specimen inform ationOrdered By: Leroy Ashby on 02-07-2025 Appearance (U) CLOUDY Abnormal CLEAR [facility] Color (U) BROWN Abnormal YELLOW [facility] Laboratory - UrinalysisOrder ed By: Leroy Ashby on 02-07-2025 Leukocyte esterase Test strip Ql (U) LARGE Abnormal NEGATIVE [facility] Mucus Ql (Urine sed) TRACE Abnormal NONE SEEN [facility] Nitrite Ql (U) Negative NEGATIVE [facility] Protein (U) [Mass/Vol] 136.2 mg/dL High <=11.9 [facility] Protein Ql (U) 300 mg/dL Abnormal NEG/TRACE [facility] Leukocytes [#/volume] correc suzi for nucleated erythrocytes in Blood by Automated counOrdered By: Leroy Ashby on 02-07-2025 WBC corrected for nucl RBC Auto (Bld) [#/Vol] 10.6 10 3/uL 4.0-11.0 [facility] MCH Auto (RBC) [Entitic mass ]Ordered By: Leroy Ashby on 02-07-2025 MCH (RBC) [Entitic mass] 31.9 pg 26.7-34.0 [facility] MCHC Auto (RBC) [Mass/Vol]Or dered By: Leroy Ashby on 02-07-2025 MCHC (RBC) [Mass/Vol] 31.4 g/dL 29.9-35.2 [facility] MCV Auto (RBC) [Entitic vol] Ordered By: Leroy Ashby on 02-07-2025 MCV (RBC) [Entitic vol] 101.4 fL High 81.0-99.0 [facility] No Panel InformationOrdered By: Leroy Ashby on 02-07-2025 25-Hydroxy Vitamin D Total 72.5 ng/mL [facility] Comment on above: <20 ng/mL Vit D defi cient20-<30 ng/mL Vit D [id number] ng/mL Vit D sufficient>100 ng/mL Potential Toxicity Parathyroid Hormone (Intact) 43 pg/mL 15-65 [facility] Comment on above: Performed at: [facility] - [facility] [address], [place], [place] [id number] Director: Mohan Talbert PhD, Phone: [phone] Phosphorus Level 4.2 mg/dL 2.6-4.7 [facility] 43 pg/mL [facility] 72.5 ng/mL [facility] 187.0 ng/mL 8.0-252.0 [facility] 3.8 mg/dL 2.6-6.0 [facility] 41.0 ug/dL Low 50.0-170.0 [facility] 2.8 g/dL Low 3.4-5.0 [facility] 31.4 [facility] 59.0 mg/dL High 7.0-18.0 [facility] 9.5 mg/dL 8.5-10.1 [facility] 98 mmol/L 98-107 [facility] 28.7 mmol/L 21.0-32.0 [facility] 1.88 mg/dL High 0.55-1.02 [facility] 31 Low >=60 mL/min/1.73m 2 [facility] 206 mg/dL High 74-106 [facility] 4.1 mmol/L 3.5-5.1 [facility] 135 mmol/L Low 136-145 [facility] 4.2 mg/dL 2.6-4.7 [facility] Urine Bacteria LARGE #/HPF Abnormal NONE SEEN [facility] Urine Occult Blood LARGE Abnormal NEGATIVE [facility] Urine Other Casts NONE SEEN #/LPF NONE SEEN [facility] Urine Other Crystals None Seen #/HPF None Seen [facility] Urine Random Creatinine 24.06 mg/dL 20.00-300.00 [facility] Urine RBC 5-10 #/HPF Abnormal 0-2 [facility] Urine Squamous Epithelial Cells FEW #/LPF Abnormal NONE/RARE [facility] Urine Transitional Epithelial Cells RARE #/LPF Abnormal NONE SEEN [facility] Urine Urobilinogen N EU/dL 0.2-1.0 [facility] Urine WBC 75-100 #/HPF Abnormal NONE SEEN [facility] NONE SEEN #/LPF NONE SEEN [facility] 24.06 mg/dL 20.00-300.00 [facility] None Seen #/HPF None Seen [facility] LARGE #/HPF Abnormal NONE SEEN [facility] 136.2 mg/dL High <=11.9 [facility] Negative NEGATIVE [facility] LARGE Abnormal NEGATIVE [facility] CLOUDY Abnormal CLEAR [facility] BROWN Abnormal YELLOW [facility] TRACE Abnormal NONE SEEN [facility] 6.5 5.0-9.0 [facility] 300 mg/dL Abnormal NEG/TRACE [facility] 5-10 #/HPF Abnormal 0-2 [facility] 1.015 1.005-1.025 [facility] FEW #/LPF Abnormal NONE/RARE [facility] RARE #/LPF Abnormal NONE SEEN [facility] N EU/dL 0.2-1.0 [facility] 75-100 #/HPF Abnormal NONE SEEN [facility] Platelet mean volume Auto (B ld) [Entitic vol]Ordered By: Leroy Ashby on 02-07-2025 Platelet mean volume (Bld) [Entitic vol] 11.7 fL 9.5-13.5 [facility] Platelets Auto (Bld) [#/Vol] Ordered By: Leroy Ashby on 02-07-2025 Platelets (Bld) [#/Vol] 213 10 3/uL 150-450 [facility] RBC Auto (Bld) [#/Vol]Ordere d By: Leroy Ashby on 02-07-2025 RBC (Bld) [#/Vol] 3.61 10 6/uL Low 4.20-5.40 [facility] Serum or plasma anion gap de terminationOrdered By: Leroy Ashby on 02-07-2025 Anion gap [Moles/Vol] 12.4 mmol/L [facility] Urine protein/creatinine rat ioOrdered By: Leroy Ashby on 02-07-2025 Protein/Creatinine (U) [Ratio] 5.66 [facility] Glucose mean value [Mass/vol ume] in Blood Estimated from glycated hemoglobinOrdered By: Da Lozano on 01-25-2025 Average glucose Estimated from glycated hemoglobin (Bld) [Mass/Vol] 160 mg/dL [facility] Hemoglobin A1c percentageOrd ered By: Da Lozano on 01-25-2025 HbA1c (Bld) [Mass fraction] 7.2 % High 4.5-6.2 [facility] Comment on above: ADA RECOMMENDED LIMI T 4.0 - 6.0ADA THERAPEUTIC TARGET < 7.0ACTION SUGGESTED> 7.0 Hemoglobin [Mass/volume] in BloodOrdered By: Da Lozano on 01-25-2025 Hemoglobin (Bld) [Mass/Vol] 11.8 g/dL Low 12.0-16.0 [facility] Laboratory - Chemistry and C hemistry - challengeOrdered By: Da Lozano on 01-25-2025 Albumin [Mass/Vol] 2.7 g/dL Low 3.4-5.0 [facility] No Panel InformationOrdered By: Da Lozano on 01-25-2025 25-Hydroxy Vitamin D Total 62.6 ng/mL [facility] Comment on above: <20 ng/mL Vit D defi cient20-<30 ng/mL Vit D ltsabqibpkqh99-657 ng/mL Vit D sufficient>100 ng/mL Potential Toxicity Miscellaneous Test COMMENT . [facility] Comment on above: Test Ordered: [id number] Nicotine and Metabolite, QuantNicotine <1.0 ng/mL Reference Range: .This test was developed and its performance characteristicsdetermined by [facility]. It has not been cleared orapproved by the Food and Drug Administration.Nicotine levels greater than 2.0 are consistent with theuse of tobacco or tobacco cessation products.Cotinine <1.0 ng/mL Reference Range: .This test was developed and its performance characteristicsdetermined by [facility]. It has not been cleared orapproved by the Food and Drug Administration.Cotinine levels greater than 20.0 are consistent with theuse of tobacco or tobacco cessation products.Performed at: [address] [id number] Director: Navneet Carcamo MD, Phone: [phone] at: CB - [facility] [id number] [place], [place] [id number] Director: Mohan Talbert PhD, Phone: [phone] COMMENT . [facility] 62.6 ng/mL [facility] 2.7 g/dL Low 3.4-5.0 [facility] HbA1c HPLC (Bld) [Mass fract ion]Ordered By: Stefan Best on 01-11-2025 HbA1c (Bld) [Mass fraction] 7.6 % [facility] Laboratory - Chemistry and C hemistry - challengeon 11-15-2024 Bilirubin Ql (U) Negative [facility] Glucose (U) [Mass/Vol] Negative [facility] Ketones Ql (U) Negative [facility] pH (U) 6.5 [pH] [facility] Specific gravity (U) [Rel density] 1.005 [facility] Urobilinogen (U) [Mass/Vol] 0.2 mg/dL [facility] Laboratory - Specimen inform ationon 11-15-2024 Appearance (U) cloudy [facility] Color (U) Yellow [facility] Laboratory - Urinalysison Leukocyte esterase Test strip Ql (U) +++ [facility] Nitrite Ql (U) Negative [facility] Protein Ql (U) +++ [facility] No Panel Informationon 11-15 Urine Occult Blood ++ [facility] Urine Cultureon 11-15-2024 Bacteria identified Cx Nom (U) Normal [facility] Comment on above: Performed By: #### C UU ####[facility] [id number] [place] [id number] [facility] Urine cultureOrdered By: Sulema Best on 11-15-2024 Bacteria identified Cx Nom (U) 2 Days [facility] Capillary blood glucose lei urement by glucometer (mass/volume)Ordered By: Yaniv Natarajan on 10-22-2024 Glucose [Mass/Vol] 172 mg/dL Normal [facility] Comment on above: Random Glucose Refer ence Range is dependent on time and content of last meal. Glucose of more than 200 mg/dL in a nonstressed, ambulatory subject supports the diagnosis of Diabetes Mellitus. Result Comment: Garita om Glucose Reference Range is dependent on time and content of last meal. Glucose of more than 200 mg/dL in a nonstressed, ambulatory subject supports the diagnosis of Diabetes Mellitus. Performed By: #### G LULS ####Point of Care testing, Glucose Glucometer (BldC) [M ass/Vol]Ordered By: Yaniv Natarajan on 10-22-2024 Glucose [Mass/Vol] Capillary blood glucose measurement by glucometer (mass/volume) [facility] Comment on above: Random Glucose Refer ence Range is dependent on time and content of last meal. Glucose of more than 200 mg/dL in a nonstressed, ambulatory subject supports the diagnosis of Diabetes Mellitus. Glucose Poct Glucometerson 0 10-22-2024 Commemt1 Glu2: Cleaned Meter Normal [facility] Comment on above: Result Comment: PERF ORMED BY:[place] [address] [place], [place] [id number] MEDICAL DIRECTORRADHA DURAN M.D. Performed By: #### G LULS ####Point of Care testing, Commemt1 Normal [facility] Comment on above: Result Comment: Glu2 : WILL NOTIFY DR/LIANE Performed By: #### G LULS ####Point of Care testing, Commemt2 Cleaned Meter Normal [facility] Comment on above: Result Comment: PERF ORMED BY:[place] [address] [place], [place] [id number] MEDICAL DIRECTORRADHA DURAN M.D. Performed By: #### G LULS ####Point of Care testing, Glucose [Mass/Vol] 217 mg/dL Normal [facility] Comment on above: Result Comment: [facility] om Glucose Reference Range is dependent on time and content of last meal. Glucose of more than 200 mg/dL in a nonstressed, ambulatory subject supports the diagnosis of Diabetes Mellitus. Performed By: #### G LULS ####Point of Care testing, No Panel InformationOrdered By: Yaniv Natarajan on 10-22-2024 Bedside Glucose Comment Glu2: cleaned meter [facility] Bedside Glucose #2 Comment Cleaned meter [facility] X-ray reportOrdered By: Andrea Iraheta on 10-22-2024 Study report [facility] Main [place] [address] [place] [id number] XRay Report Signed Patient: Lexi Tatum MR#: [id number] : 1945 Acct:[id number] Age/Sex: 79 / F ADM Date: 5 Loc: [place] Room: Type: [facility] [...] Iraheta Jr., DPaulOPaul10/22/2024 8:55 AM Dictation Location: [place] [address] Transcribed By: [facility] 10/22/24 0855 Dictated By: Earnest Iraheta Jr, DO 10/22/24 0854 Signed By: 10/22/24 0855 [facility] XR KUBon 10-22-2024 XR KUB Normal [facility] XR KUB Normal [facility] Basophils Auto (Bld) [#/Vol] on 09-27-2024 Basophils (Bld) [#/Vol] Automated basophil count 0.0-0.1 [facility] Basophils/100 WBC Auto (Bld) on 09-27-2024 Basophils/100 WBC (Bld) Automated basophil % 0.2-2.0 [facility] Eosinophils/100 WBC Auto (Bl d)on 09-27-2024 Eosinophils/100 WBC (Bld) Automated eosinophil % Low 0.9-7.0 [facility] Erythrocyte distribution wid th Auto (RBC) [Ratio]on 09-27-2024 Erythrocyte distribution width (RBC) [Ratio] Erythrocyte distribution width [Ratio] by Automated count High 11.0-15.0 [facility] Estimated glomerular filtrat ion rate (GFR) non- Americanon 09-27-2024 GFR/1.73 sq M.predicted among non-blacks MDRD (S/P/Bld) [Vol rate/Area] Estimated glomerular filtration rate (GFR) non- Low >=60 mL/min/1.73m 2 [facility] Globulin Calc (S) [Mass/Vol] on 09-27-2024 Globulin (S) [Mass/Vol] Serum globulin measurement by calculation (mass/volume) [facility] Glucose mean value [Mass/vol ume] in Blood Estimated from glycated hemoglobinon 09-27-2024 Average glucose Estimated from glycated hemoglobin (Bld) [Mass/Vol] Glucose mean value [Mass/volume] in Blood Estimated from glycated hemoglobin [facility] Hematocrit Auto (Bld) [Volum e fraction]on 09-27-2024 Hematocrit (Bld) [Volume fraction] Hematocrit [Volume Fraction] of Blood by Automated count Low 36.0-48.0 [facility] Hemoglobin A1c percentageon 09-27-2024 HbA1c (Bld) [Mass fraction] Hemoglobin A1c percentage High 4.5-6.2 [facility] Comment on above: ADA RECOMMENDED LIMI T 4.0 - 6.0ADA THERAPEUTIC TARGET < 7.0ACTION SUGGESTED> 7.0 Hemoglobin [Mass/volume] in Bloodon 09-27-2024 Hemoglobin (Bld) [Mass/Vol] Hemoglobin [Mass/volume] in Blood Low 12.0-16.0 [facility] Laboratory - Chemistry and C hemistry - challengeon 09-27-2024 Albumin [Mass/Vol] 2.3 g/dL Low 3.4-5.0 [facility] ALP [Catalytic activity/Vol] 52 U/L 46-116 [facility] ALT [Catalytic activity/Vol] U/L Low 14-59 [facility] AST [Catalytic activity/Vol] 9 U/L Low 15-37 [facility] Bilirubin [Mass/Vol] 0.3 mg/dL 0.2-1.0 [facility] Calcium [Mass/Vol] 8.8 mg/dL 8.5-10.1 [facility] Chloride [Moles/Vol] 105 mmol/L 98-107 [facility] CO2 [Moles/Vol] 26.7 mmol/L 21.0-32.0 [facility] Creatinine [Mass/Vol] 1.85 mg/dL High 0.55-1.02 [facility] GFR/1.73 sq M.predicted MDRD (S/P/Bld) [Vol rate/Area] 32 mL/min/{1.73_m2} Low >=60 mL/min/1.73m 2 [facility] Glucose [Mass/Vol] 153 mg/dL High 74-106 [facility] Magnesium [Mass/Vol] 2.0 mg/dL 1.8-2.4 [facility] Potassium [Moles/Vol] 3.7 mmol/L 3.5-5.1 [facility] Protein [Mass/Vol] 6.3 g/dL Low 6.4-8.2 [facility] Sodium [Moles/Vol] 141 mmol/L 136-145 [facility] Urea nitrogen [Mass/Vol] 53.0 mg/dL High 7.0-18.0 [facility] Urea nitrogen/Creatinine [Mass ratio] 28.6 mg/mg [facility] Laboratory - Hematology and Cell countson 09-27-2024 Immature granulocytes/100 WBC (Bld) 0.4 % 0.0-0.5 [facility] Leukocytes [#/volume] correc suzi for nucleated erythrocytes in Blood by Automated counon 09-27-2024 WBC corrected for nucl RBC Auto (Bld) [#/Vol] Leukocytes [#/volume] corrected for nucleated erythrocytes in Blood by Automated coun High 4.0-11.0 [facility] Lymphocytes Auto (Bld) [#/Vo l]on 09-27-2024 Lymphocytes (Bld) [#/Vol] Lymphocytes [#/volume] in Blood by Automated count 1.2-3.8 [facility] Lymphocytes/100 WBC Auto (Bl d)on 09-27-2024 Lymphocytes/100 WBC (Bld) Lymphocytes/100 leukocytes in Blood by Automated count Low 20.5-60.0 [facility] MCH Auto (RBC) [Entitic mass ]on 09-27-2024 MCH (RBC) [Entitic mass] MCH [Entitic mass] by Automated count 26.7-34.0 [facility] MCHC Auto (RBC) [Mass/Vol]on 09-27-2024 MCHC (RBC) [Mass/Vol] MCHC [Mass/volume] by Automated count 29.9-35.2 [facility] MCV Auto (RBC) [Entitic vol] on 09-27-2024 MCV (RBC) [Entitic vol] MCV [Entitic volume] by Automated count High 81.0-99.0 [facility] Monocytes Auto (Bld) [#/Vol] on 09-27-2024 Monocytes (Bld) [#/Vol] Automated blood monocyte count High 0.3-0.8 [facility] Monocytes/100 WBC Auto (Bld) on 09-27-2024 Monocytes/100 WBC (Bld) Automated monocyte % 1.7-12.0 [facility] Neutrophils Auto (Bld) [#/Vo l]on 09-27-2024 Neutrophils (Bld) [#/Vol] Neutrophils [#/volume] in Blood by Automated count High 1.4-6.5 [facility] Neutrophils/100 WBC Auto (Bl d)on 09-27-2024 Neutrophils/100 WBC (Bld) Automated neutrophil % 43.0-75.0 [facility] No Panel Informationon 09-27 Eosinophils # (Auto) 0.1 10 3/uL 0.0-0.7 [facility] Immature Granulocyte # (Auto) 0.04 10 3/uL High 0.00-0.03 [facility] Platelet mean volume Auto (B ld) [Entitic vol]on 09-27-2024 Platelet mean volume (Bld) [Entitic vol] Platelet mean volume [Entitic volume] in Blood by Automated count 9.5-13.5 [facility] Platelets Auto (Bld) [#/Vol] on 09-27-2024 Platelets (Bld) [#/Vol] Platelets [#/volume] in Blood by Automated count 150-450 [facility] RBC Auto (Bld) [#/Vol]on RBC (Bld) [#/Vol] Erythrocytes [#/volume] in Blood by Automated count Low 4.20-5.40 [facility] Serum or plasma albumin/glob ulin mass ratioon 09-27-2024 Albumin/Globulin [Mass ratio] Serum or plasma albumin/globulin mass ratio [facility] Serum or plasma anion gap de terminationon 09-27-2024 Anion gap [Moles/Vol] Serum or plasma anion gap determination [facility] Basophils Auto (Bld) [#/Vol] on 09-26-2024 Basophils (Bld) [#/Vol] Automated basophil count 0.0-0.1 [facility] Basophils/100 WBC Auto (Bld) on 09-26-2024 Basophils/100 WBC (Bld) Automated basophil % 0.2-2.0 [facility] Eosinophils/100 WBC Auto (Bl d)on 09-26-2024 Eosinophils/100 WBC (Bld) Automated eosinophil % 0.9-7.0 [facility] Erythrocyte distribution wid th Auto (RBC) [Ratio]on 09-26-2024 Erythrocyte distribution width (RBC) [Ratio] Erythrocyte distribution width [Ratio] by Automated count High 11.0-15.0 [facility] Estimated glomerular filtrat ion rate (GFR) non- Americanon 09-26-2024 GFR/1.73 sq M.predicted among non-blacks MDRD (S/P/Bld) [Vol rate/Area] Estimated glomerular filtration rate (GFR) non- Low >=60 mL/min/1.73m 2 [facility] Hematocrit Auto (Bld) [Volum e fraction]on 09-26-2024 Hematocrit (Bld) [Volume fraction] Hematocrit [Volume Fraction] of Blood by Automated count 36.0-48.0 [facility] Hemoglobin [Mass/volume] in Bloodon 09-26-2024 Hemoglobin (Bld) [Mass/Vol] Hemoglobin [Mass/volume] in Blood Low 12.0-16.0 [facility] Laboratory - Chemistry and C hemistry - challengeon 09-26-2024 Calcium [Mass/Vol] 9.5 mg/dL 8.5-10.1 [facility] Chloride [Moles/Vol] 100 mmol/L 98-107 [facility] CO2 [Moles/Vol] 27.9 mmol/L 21.0-32.0 [facility] Creatinine [Mass/Vol] 2.12 mg/dL High 0.55-1.02 [facility] GFR/1.73 sq M.predicted MDRD (S/P/Bld) [Vol rate/Area] 27 mL/min/{1.73_m2} Low >=60 mL/min/1.73m 2 [facility] Glucose [Mass/Vol] 205 mg/dL High 74-106 [facility] Potassium [Moles/Vol] 4.7 mmol/L 3.5-5.1 [facility] Sodium [Moles/Vol] 137 mmol/L 136-145 [facility] Urea nitrogen [Mass/Vol] 58.0 mg/dL High 7.0-18.0 [facility] Urea nitrogen/Creatinine [Mass ratio] 27.4 mg/mg [facility] Laboratory - Hematology and Cell countson 09-26-2024 Immature granulocytes/100 WBC (Bld) 0.7 % High 0.0-0.5 [facility] Leukocytes [#/volume] correc suzi for nucleated erythrocytes in Blood by Automated counon 09-26-2024 WBC corrected for nucl RBC Auto (Bld) [#/Vol] Leukocytes [#/volume] corrected for nucleated erythrocytes in Blood by Automated coun High 4.0-11.0 [facility] Lymphocytes Auto (Bld) [#/Vo l]on 09-26-2024 Lymphocytes (Bld) [#/Vol] Lymphocytes [#/volume] in Blood by Automated count 1.2-3.8 [facility] Lymphocytes/100 WBC Auto (Bl d)on 09-26-2024 Lymphocytes/100 WBC (Bld) Lymphocytes/100 leukocytes in Blood by Automated count Low 20.5-60.0 [facility] MCH Auto (RBC) [Entitic mass ]on 09-26-2024 MCH (RBC) [Entitic mass] MCH [Entitic mass] by Automated count 26.7-34.0 [facility] MCHC Auto (RBC) [Mass/Vol]on 09-26-2024 MCHC (RBC) [Mass/Vol] MCHC [Mass/volume] by Automated count 29.9-35.2 [facility] MCV Auto (RBC) [Entitic vol] on 09-26-2024 MCV (RBC) [Entitic vol] MCV [Entitic volume] by Automated count High 81.0-99.0 [facility] Monocytes Auto (Bld) [#/Vol] on 09-26-2024 Monocytes (Bld) [#/Vol] Automated blood monocyte count High 0.3-0.8 [facility] Monocytes/100 WBC Auto (Bld) on 09-26-2024 Monocytes/100 WBC (Bld) Automated monocyte % 1.7-12.0 [facility] Neutrophils Auto (Bld) [#/Vo l]on 09-26-2024 Neutrophils (Bld) [#/Vol] Neutrophils [#/volume] in Blood by Automated count High 1.4-6.5 [facility] Neutrophils/100 WBC Auto (Bl d)on 09-26-2024 Neutrophils/100 WBC (Bld) Automated neutrophil % 43.0-75.0 [facility] No Panel Informationon 09-26 Eosinophils # (Auto) 0.2 10 3/uL 0.0-0.7 [facility] Immature Granulocyte # (Auto) 0.10 10 3/uL High 0.00-0.03 [facility] Troponin I High Sensitivity 21.9 pg/mL 4.0-51.3 [facility] Comment on above: CUT-OFF POINTS HAVE [...] volume] in Blood by Automated count 9.5-13.5 [facility] Platelets Auto (Bld) [#/Vol] on 09-26-2024 Platelets (Bld) [#/Vol] Platelets [#/volume] in Blood by Automated count 150-450 [facility] RBC Auto (Bld) [#/Vol]on RBC (Bld) [#/Vol] Erythrocytes [#/volume] in Blood by Automated count Low 4.20-5.40 [facility] Serum or plasma anion gap de terminationon 09-26-2024 Anion gap [Moles/Vol] Serum or plasma anion gap determination [facility] Urine Cultureon 09-26-2024 Bacteria identified Cx Nom (U) Normal [facility] Comment on above: Performed By: #### C UU ####[facility] [id number] [place] [id number] [facility] Appearance of UrineOrdered B y: Leroy Ashby on 07-15-2024 Appearance (U) Urine appearance Abnormal [facility] Bacteria [Presence] in Urine by AutomatedOrdered By: Leroy Ashby on 07-15-2024 Bacteria Auto Ql (U) Bacteria [Presence] in Urine by Automated High None Seen [facility] Bilirubin Test strip Ql (U)O rdered By: Leroy Ashby on 07-15-2024 Bilirubin Ql (U) Bilirubin.total [Presence] in Urine by Test strip Negative [facility] Color Auto (U)Ordered By: Ab carl Ashby on 07-15-2024 Color (U) Color of Urine by Auto Yellow [facility] Creatinine [Mass/volume] in UrineOrdered By: Leroy Ashby on 07-15-2024 Creatinine (U) [Mass/Vol] Creatinine [Mass/volume] in Urine [facility] Comment on above: No reference range e stablished Dipstick and Microscopicon 0 07-15-2024 Appearance (U) Cloudy Critically abnormal Clear [facility] Comment on above: Order Comment: Name Collection Type:: Voided Performed By: #### A DDONUAPLUS, CUU ####[address] [address] [facility] Bacteria,Urine 2+ High None Seen [facility] Comment on above: Order Comment: Name Collection Type:: Voided Performed By: #### A DDONUAPLUS, CUU ####[address] [address] [facility] Bilirubin,Urine Negative Normal Negative [facility] Comment on above: Order Comment: Name Collection Type:: Voided Performed By: #### A DDONUAPLUS, CUU ####[address] [address] [facility] Color (U) Colorless Normal Yellow [facility] Comment on above: Order Comment: Name Collection Type:: Voided Performed By: #### A DDONUAPLUS, CUU ####[place] [id number] [facility] Glucose Ql (U) Normal Normal Normal [facility] Comment on above: Order Comment: Name Collection Type:: Voided Performed By: #### A DDONUAPLUS, CUU ####[address] [address] [facility] Hyaline Casts,Urine 0 [LPF] Normal 0-8 [facility] Comment on above: Order Comment: Name Collection Type:: Voided Performed By: #### A DDONUAPLUS, CUU ####[address] [address] [facility] Ketones Ql (U) Negative Normal Negative [facility] Comment on above: Order Comment: Name Collection Type:: Voided Performed By: #### A DDONUAPLUS, CUU ####[address] [address] [facility] Leukocyte esterase Test strip Ql (U) 4+ High Negative [facility] Comment on above: Order Comment: Name Collection Type:: Voided Performed By: #### A DDONUAPLUS, CUU ####[place] [id number] [facility] Mucus,Urine Rare Normal [facility] Comment on above: Order Comment: Name Collection Type:: Voided Result Comment: PERF ORMED BY:[address] [place], [place] [phone] MEDICAL DIRECTORRADHA DURAN M.D. Performed By: #### A DDONUAPLUS, CUU ####[place] [phone] [facility] Nitrite,Urine Negative Normal Negative [facility] Comment on above: Order Comment: Name Collection Type:: Voided Performed By: #### A DDONUAPLUS, CUU ####[address] Occult Blood,Urine 1+ High Negative [facility] Comment on above: Order Comment: Name Collection Type:: Voided Performed By: #### A DDONUAPLUS, CUU ####[address] pH (U) 6.5 [pH] Normal 5.0-9.0 [facility] Comment on above: Order Comment: Name Collection Type:: Voided Performed By: #### A DDONUAPLUS, CUU ####[place] [id number] [facility] Protein (U) [Mass/Vol] 50 mg/dL High Negative [facility] Comment on above: Order Comment: Name Collection Type:: Voided Performed By: #### A DDONUAPLUS, CUU ####[place] [phone] [facility] RBC,Urine 5 [HPF] High 0-4 [facility] Comment on above: Order Comment: Name Collection Type:: Voided Performed By: #### A DDONUAPLUS, CUU ####[address] Specificy [place],Urine 1.009 Normal 1.001-1.030 [facility] Comment on above: Order Comment: Name Collection Type:: Voided Performed By: #### A DDONUAPLUS, CUU ####[place] [address] [place] [phone] [facility] Squamous Epithelial Cell,Urine 3 [HPF] High 0-2 [facility] Comment on above: Order Comment: Name Collection Type:: Voided Performed By: #### A DDONUAPLUS, CUU ####[place] [address] [place] [phone] [facility] Urobilinogen,Urine Normal Normal Normal [facility] Comment on above: Order Comment: Name Collection Type:: Voided Performed By: #### A DDONUAPLUS, CUU ####[place] [phone] [facility] WBC CLUMP, Urine Many High None Seen [facility] Comment on above: Order Comment: Name Collection Type:: Voided Performed By: #### A DDONUAPLUS, CUU ####[place] [phone] [facility] WBC,Urine Innumerable High 0-4 [facility] Comment on above: Order Comment: Name Collection Type:: Voided Performed By: #### A DDONUAPLUS, CUU ####[place] [phone] [facility] Epithelial cells.squamous [# /area] in Urine sediment by Automated countOrdered By: Leroy Ashby on 07-15-2024 Epithelial cells.squamous Auto (Urine sed) [#/Area] Epithelial cells.squamous [#/area] in Urine sediment by Automated count High 0-2 [facility] Erythrocytes [#/area] in Uri ne sediment by Automated countOrdered By: Leroy Ashby on 07-15-2024 RBC Auto (Urine sed) [#/Area] Erythrocytes [#/area] in Urine sediment by Automated count High 0-4 [facility] Glucose [Mass/volume] in Uri ne by Test stripOrdered By: Leroy Ashby on 07-15-2024 Glucose Test strip (U) [Mass/Vol] Glucose [Mass/volume] in Urine by Test strip Normal [facility] Hemoglobin Test strip Ql (U) Ordered By: Leroy Ashby on 07-15-2024 Hemoglobin Ql (U) Hemoglobin [Presence] in Urine by Test strip High Negative [facility] Hyaline casts [#/area] in Ur ine sediment by Automated countOrdered By: Leroy Ashby on 07-15-2024 Hyaline casts Auto (Urine sed) [#/Area] Hyaline casts [#/area] in Urine sediment by Automated count 0-8 [facility] Ketones Test strip Ql (U)Ord ered By: Leroy Ashby on 07-15-2024 Ketones Ql (U) Ketones [Presence] in Urine by Test strip Negative [facility] Leukocyte clumps [Presence] in Urine by AutomatedOrdered By: Leroy Ashby on 07-15-2024 Leukocyte clumps Auto Ql (U) Leukocyte clumps [Presence] in Urine by Automated High None Seen [facility] Leukocyte esterase [Presence ] in Urine by Test stripOrdered By: Leroy Ashby on 07-15-2024 Leukocyte esterase Test strip Ql (U) Leukocyte esterase [Presence] in Urine by Test strip High Negative [facility] Leukocytes [#/area] in Urine sediment by Automated countOrdered By: Leroy Ashby on 07-15-2024 WBC Auto (Urine sed) [#/Area] Leukocytes [#/area] in Urine sediment by Automated count High 0-4 [facility] Mucus [Presence] in Urine by AutomatedOrdered By: Leroy Ashby on 07-15-2024 Mucus Auto Ql (U) Mucus [Presence] in Urine by Automated [facility] Nitrite Test strip Ql (U)Ord ered By: Leroy Ashby on 07-15-2024 Nitrite Ql (U) Nitrite [Presence] in Urine by Test strip Negative [facility] Protein Creat Ratio Ur Rando mon 07-15-2024 Creatinine, Urine (Random) 25.00 mg/dL Normal [facility] Comment on above: Result Comment: No r eference range established Performed By: #### P ROCRERAT ####[facility] [id number] [place] [address] [facility] Protein (U) [Mass/Vol] 66 mg/dL High 0-9 [facility] Comment on above: Performed By: #### P ROCRERAT ####[address] [address] [facility] Urine Protein/Creatinine Ratio 2640 mg/g{Cre} High 0-200 [facility] Comment on above: Result Comment: PERF ORMED BY:[address] [place], [place] [phone] MEDICAL SAUL DURAN M.D. Performed By: #### P ROCRERAT ####[address] [address] [facility] Protein Test strip (U) [Mass /Vol]Ordered By: Leroy Isma on 07-15-2024 Protein (U) [Mass/Vol] Protein [Mass/volume] in Urine by Test strip High Negative [facility] Protein [Mass/volume] in Uri neOrdered By: Leroy Isma on 07-15-2024 Protein (U) [Mass/Vol] Protein [Mass/volume] in Urine High 0-9 [facility] Specific gravity Test strip (U) [Rel density]Ordered By: Leroy Isma on 07-15-2024 Specific gravity (U) [Rel density] Specific gravity of Urine by Test strip 1.001-1.030 [facility] Urine Cultureon 07-15-2024 Bacteria identified Cx Nom (U) Normal [facility] Comment on above: Performed By: #### A DDONUAPLUS, CUU ####[address] [address] [facility] Urine cultureOrdered By: Abd ul Isma on 07-15-2024 Bacteria identified Cx Nom (U) Urine culture [facility] Bacteria identified Cx Nom (U) Urine culture [facility] Urine protein/creatinine rat ioOrdered By: Leroy Isma on 07-15-2024 Protein/Creatinine (U) [Ratio] Urine protein/creatinine ratio High 0-200 [facility] Urobilinogen Test strip (U) [Mass/Vol]Ordered By: Leroy Isma on 07-15-2024 Urobilinogen (U) [Mass/Vol] Urobilinogen [Mass/volume] in Urine by Test strip Normal [facility] pH Test strip (U)Ordered By: Leroy Ashby on 07-15-2024 pH (U) pH of Urine by Test strip 5.0-9.0 [facility] A1C with Estimated Average G soto 06-28-2024 Glucose [Mass/Vol] 189 mg/dL Normal [facility] Comment on above: Result Comment: PERF ORMED BY:[address] [place], [place] [phone] MEDICAL DIRECTORRADHA DURAN M.D. Performed By: #### A 1C [facility] eA ####[place] [place] [address] [facility] HbA1c (Bld) [Mass fraction] 8.2 % High 4.3-5.6 [facility] Comment on above: Result Comment: Incr eased risk for diabetes: 5.7 - 6.4 diabetes: >6.4 glycemic control for adults with diabetes: <7.0 Performed By: #### A 1C [facility] eA ####[address] [address] [facility] Albumin [Mass/volume] in Ser um or Plasma by Bromocresol green (BCG) dye binding methoOrdered By: Leroy Ashby on 06-28-2024 Albumin BCG dye [Mass/Vol] Albumin [Mass/volume] in Serum or Plasma by Bromocresol green (BCG) dye binding metho 3.5-5.7 [facility] Blood estimated average gluc ose determination by estimation from glycated hemoglobinOrdered By: Da Lozano on 06-28-2024 Average glucose Estimated from glycated hemoglobin (Bld) [Mass/Vol] Glucose mean value [Mass/volume] in Blood Estimated from glycated hemoglobin [facility] Calcium [Mass/volume] in Ser um or PlasmaOrdered By: Leroy Ashby on 06-28-2024 Calcium [Mass/Vol] Calcium [Mass/volume] in Serum or Plasma 8.6-10.3 [facility] Carbon dioxide, total [Moles /volume] in Serum or PlasmaOrdered By: Leroy Ashby on 06-28-2024 CO2 [Moles/Vol] Carbon dioxide, total [Moles/volume] in Serum or Plasma 21.0-31.0 [facility] Chloride [Moles/volume] in [place] or PlasmaOrdered By: Leroy Isma on 06-28-2024 Chloride [Moles/Vol] Chloride [Moles/volume] in Serum or Plasma 98-107 [facility] Creatinine [Mass/volume] in Serum or PlasmaOrdered By: Leroy Isma on 06-28-2024 Creatinine [Mass/Vol] Creatinine [Mass/volume] in Serum or Plasma High 0.60-1.20 [facility] Erythrocyte distribution wid th Auto (RBC) [Ratio]Ordered By: Leroy Isma on 06-28-2024 Erythrocyte distribution width (RBC) [Ratio] Erythrocyte distribution width [Ratio] by Automated count High 11.9-15.3 [facility] Ferritinon 06-28-2024 Ferritin [Mass/Vol] 96.0 ng/mL Normal 11.0-306.8 [facility] Comment on above: Performed By: #### I FE SERUM, SPE W INTERPRET, KAPPA ####[facility] ,#### [id number], [id number], FE and TIBC, RENAL, PTH, MG, URIC, ELIAS, CBCNO ####[facility] [id number] Ferritin [Mass/volume] in Se rum or PlasmaOrdered By: Leroy Isma on 06-28-2024 Ferritin [Mass/Vol] Ferritin [Mass/volume] in Serum or Plasma 11.0-306.8 [facility] Folate [Mass/volume] in Seru m or PlasmaOrdered By: Leroy Isma on 06-28-2024 Folate [Mass/Vol] Folate [Mass/volume] in Serum or Plasma >5.9 [facility] Comment on above: Folate reference ran ge: >5.9 ng/mlThe WHO technical consultation on folate and vitamin [id number] has determined that folate concentrations lessthan 4 ng/ml are considered deficient. Free K+L LT Chains, Qn, Son 06-28-2024 Free [place] Light Chains, S 113.1 mg/L High 3.3-19.4 [facility] Comment on above: Performed By: #### I FE SERUM, SPE W INTERPRET, KAPPA ####[facility] ,#### [id number], [id number], FE and TIBC, RENAL, PTH, MG, URIC, ELIAS, CBCNO ####[place] [address] [place] [id number] [facility] Free [place]ambda Light Chains, S 52.4 mg/L High 5.7-26.3 [facility] Comment on above: Performed By: #### I FE SERUM, SPE W INTERPRET, KAPPA ####[facility] ,#### [id number], FE and TIBC, RENAL, PTH, MG, URIC, ELIAS, CBCNO ####[place] [address] [place] [phone] [facility] [place]/Lambda Ratio, S 2.16 High 0.26-1.65 [facility] Comment on above: Result Comment: Perf ormed at: CB - [facility] [place] [id number] Fur Buyer: Mohan Talbert PhD, Phone: [phone] BY:[address] [place], [place] [phone] MEDICAL DIRECTORMOJERICA DURAN M.D. Performed By: #### I FE SERUM, SPE W INTERPRET, KAPPA ####[facility] ,#### [id number], [id number], FE and TIBC, RENAL, PTH, MG, URIC, ELIAS, CBCNO ####[place] [id number] [facility] Glucose [Mass/volume] in Ser um or PlasmaOrdered By: Leroy Ashby on 06-28-2024 Glucose [Mass/Vol] Glucose [Mass/volume] in Serum or Plasma High 70-100 [facility] Comment on above: ADA recommended refe rence rangeRandom Glucose Reference Range is dependent on time and content of last meal. Glucose of more than 200 mg/dL in a nonstressed, ambulatory subject supports the diagnosis of Diabetes Mellitus. Hematocrit Auto (Bld) [Volum e fraction]Ordered By: Leroy Ashby on 06-28-2024 Hematocrit (Bld) [Volume fraction] Hematocrit [Volume Fraction] of Blood by Automated count 34.0-46.4 [facility] Hemoglobin A1c/Hemoglobin.to nathen in BloodOrdered By: Da Lozano on 06-28-2024 HbA1c (Bld) [Mass fraction] Hemoglobin A1c percentage High 4.3-5.6 [facility] Comment on above: Increased risk for d iabetes: 5.7 - 6.4diabetes: >6.4glycemic control for adults with diabetes: <7.0 Hemoglobin [Mass/volume] in BloodOrdered By: Leroy Ashby on 06-28-2024 Hemoglobin (Bld) [Mass/Vol] Hemoglobin [Mass/volume] in Blood 11.8-15.4 [facility] Hemogram CBC Without Diffon 06-28-2024 Erythrocyte distribution width (RBC) [Ratio] 15.9 % High 11.9-15.3 [facility] Comment on above: Performed By: #### I FE SERUM, SPE W INTERPRET, KAPPA ####[facility] ,#### [id number], [id number], FE and TIBC, RENAL, PTH, MG, URIC, ELIAS, CBCNO ####[place] [address] [place] [phone] [facility] Hematocrit (Bld) [Volume fraction] 37.6 % Normal 34.0-46.4 [facility] Comment on above: Performed By: #### I FE SERUM, SPE W INTERPRET, KAPPA ####[facility] ,#### [id number], FE and TIBC, RENAL, PTH, MG, URIC, ELIAS, CBCNO ####[place] [address] [place] [phone] [facility] Hemoglobin (Bld) [Mass/Vol] 12.2 g/dL Normal 11.8-15.4 [facility] Comment on above: Performed By: #### I FE SERUM, SPE W INTERPRET, KAPPA ####[facility] ,#### [id number], [id number], FE and TIBC, RENAL, PTH, MG, URIC, ELIAS, CBCNO ####[address] MCH (RBC) [Entitic mass] 31.7 pg Normal 24.7-34.3 [facility] Comment on above: Performed By: #### I FE SERUM, SPE W INTERPRET, KAPPA ####[facility] ,#### [id number], [id number], FE and TIBC, RENAL, PTH, MG, URIC, ELIAS, CBCNO ####[address] MCV (RBC) [Entitic vol] 98.3 fL Normal 80-100 [facility] Comment on above: Performed By: #### I FE SERUM, SPE W INTERPRET, KAPPA ####[facility] ,#### [id number], [id number], FE and TIBC, RENAL, PTH, MG, URIC, ELIAS, CBCNO ####[address] Mean Corpuscular HGB Conc 32.3 g/dL Normal 32.0-35.0 [facility] Comment on above: Performed By: #### I FE SERUM, SPE W INTERPRET, KAPPA ####[facility] ,#### [id number], [id number], FE and TIBC, RENAL, PTH, MG, URIC, ELIAS, CBCNO ####[address] Platelet mean volume (Bld) [Entitic vol] 9.1 fL Normal 6.3-10.7 [facility] Comment on above: Result Comment: PERF ORMED BY:[address] [place], [place] [phone] MEDICAL DIRECTORMOHAMED M EL-FAKHARANY M.D. Performed By: #### I FE SERUM, SPE W INTERPRET, KAPPA ####[facility] ,#### [id number], [id number], FE and TIBC, RENAL, PTH, MG, URIC, ELIAS, CBCNO ####[place] [address] [address] Platelets (Bld) [#/Vol] 229 10*3/uL Normal 150-450 [facility] Comment on above: Performed By: #### I FE SERUM, SPE W INTERPRET, KAPPA ####[facility] ,#### [id number], [id number], FE and TIBC, RENAL, PTH, MG, URIC, ELIAS, CBCNO ####[address] RBC (Bld) [#/Vol] 3.83 10*6/uL Normal 3.60-5.00 [facility] Comment on above: Performed By: #### I FE SERUM, SPE W INTERPRET, KAPPA ####[facility] ,#### [id number], [id number], FE and TIBC, RENAL, PTH, MG, URIC, ELIAS, CBCNO ####[address] WBC (Bld) [#/Vol] 9.2 10*3/uL Normal 3.8-11.6 [facility] Comment on above: Performed By: #### I FE SERUM, SPE W INTERPRET, KAPPA ####[facility] ,#### [id number], [id number], FE and TIBC, RENAL, PTH, MG, URIC, ELIAS, CBCNO ####[place] [id number] [facility] Immunofixation,Serumon 06-28 Immunofixation, Serum Comment: Normal . [facility] Comment on above: Result Comment: Pres ence of monoclonal protein is unclear at this time. Suggest repeat in 3 to 6 months if clinically indicated. Performed By: #### I FE SERUM, SPE W INTERPRET, KAPPA ####[facility] ,#### [id number], [id number], FE and TIBC, RENAL, PTH, MG, URIC, ELIAS, CBCNO ####[place] [address] [place] [address] [facility] Immunoglobulin A, Serum 394 mg/dL Normal 64-422 [facility] Comment on above: Performed By: #### I FE SERUM, SPE W INTERPRET, KAPPA ####[facility] ,#### [id number], [id number], FE and TIBC, RENAL, PTH, MG, URIC, ELIAS, CBCNO ####[place] [address] [place] [address] [facility] Immunoglobulin G 1087 mg/dL Normal 586-1602 [facility] Comment on above: Performed By: #### I FE SERUM, SPE W INTERPRET, KAPPA ####[facility] ,#### [id number], [id number], FE and TIBC, RENAL, PTH, MG, URIC, ELIAS, CBCNO ####[place] [address] [place] [address] [facility] Immunoglobulin M, Serum 86 mg/dL Normal 26-217 [facility] Comment on above: Result Comment: Perf ormed at: - [facility] [address] [id number] Fur Buyer: Mohan Talbert PhD, Phone: [phone] Performed By: #### I FE SERUM, SPE W INTERPRET, KAPPA ####[facility] ,#### [id number], [id number], FE and TIBC, RENAL, PTH, MG, URIC, ELIAS, CBCNO ####[place] [address] [place] [address] [facility] Iron [Mass/volume] in Serum or PlasmaOrdered By: Leroy Ashby on 06-28-2024 Iron [Mass/Vol] Iron [Mass/volume] in Serum or Plasma 50-212 [facility] Iron and TIBC Profileon 06-13 % Iron Saturation 24.4 % Normal 20-50 [facility] Comment on above: Performed By: #### I FE SERUM, SPE W INTERPRET, KAPPA ####[facility] ,#### [id number], [id number], FE and TIBC, RENAL, PTH, MG, URIC, ELIAS, CBCNO ####[place] [address] [place] [id number] [facility] Iron [Mass/Vol] 66 ug/dL Normal 50-212 [facility] Comment on above: Performed By: #### I FE SERUM, SPE W INTERPRET, KAPPA ####[facility] ,#### [id number], [id number], FE and TIBC, RENAL, PTH, MG, URIC, ELIAS, CBCNO ####[place] [address] [place] [id number] [facility] Total Iron Binding Capacity 270 ug/dL Normal 255-450 [facility] Comment on above: Performed By: #### I FE SERUM, SPE W INTERPRET, KAPPA ####[facility] ,#### [id number], [id number], FE and TIBC, RENAL, PTH, MG, URIC, ELIAS, CBCNO ####[place] [address] [place] [id number] [facility] Transferrin [Mass/Vol] 193 mg/dL Low 203-362 [facility] Comment on above: Performed By: #### I FE SERUM, SPE W INTERPRET, KAPPA ####[facility] ,#### [id number], [id number], FE and TIBC, RENAL, PTH, MG, URIC, ELIAS, CBCNO ####[place] [id number] [facility] Leukocytes [#/volume] correc suzi for nucleated erythrocytes in Blood by Automated counOrdered By: Leroy Ashby on 06-28-2024 WBC corrected for nucl RBC Auto (Bld) [#/Vol] Leukocytes [#/volume] corrected for nucleated erythrocytes in Blood by Automated coun 3.8-11.6 [facility] MCH Auto (RBC) [Entitic mass ]Ordered By: Leroy Ashby on 06-28-2024 MCH (RBC) [Entitic mass] MCH [Entitic mass] by Automated count 24.7-34.3 [facility] MCHC Auto (RBC) [Mass/Vol]Or dered By: Leroy Ashby on 06-28-2024 MCHC (RBC) [Mass/Vol] MCHC [Mass/volume] by Automated count 32.0-35.0 [facility] MCV Auto (RBC) [Entitic vol] Ordered By: Leroy Ashby on 06-28-2024 MCV (RBC) [Entitic vol] MCV [Entitic volume] by Automated count 80-100 [facility] Magnesiumon 06-28-2024 Magnesium [Mass/Vol] 1.9 mg/dL Normal 1.9-2.7 [facility] Comment on above: Performed By: #### I FE SERUM, SPE W INTERPRET, KAPPA ####[facility] ,#### [id number], [id number], FE and TIBC, RENAL, PTH, MG, URIC, ELIAS, CBCNO ####[facility] [id number] Magnesium [Mass/volume] in S paloma or PlasmaOrdered By: Leroy sAhby on 06-28-2024 Magnesium [Mass/Vol] Magnesium [Mass/volume] in Serum or Plasma 1.9-2.7 [facility] No Panel InformationOrdered By: Leroy Ashby on 06-28-2024 Estimated GFR (CKD-EPI) 36.998 mL/Min [facility] Creatinine Clearance (Chem N/A [facility] Protein Electrophoresis Interpret Comment . [facility] Comment on above: The SPE pattern demo nstrates elevation of regionscontaining acute phase proteins suggesting anacute/subacute inflammatory response. Some conditions inwhich this pattern has been observed include: bacterial,viral or parasitic infection; mechanical, physical orchemical trauma; and cardiac failure. The gamma globulinregion is unremarkable and evidence of monoclonal proteinis not apparent.Performed at: [facility] [employer] [id number] Director: Mohan Talbert PhD, Phone: [phone] Protein Electrophoresis M-Rafiq Not observed g/dL Not Observed [facility] Protein Electrophoresis Note Comment . [facility] Comment on above: Protein electrophore sis scan will follow via computer,mail, or wind turbine erector delivery. Parathyrin.intact [Mass/volu me] in Serum or PlasmaOrdered By: Leroy Ashby on 06-28-2024 Parathyrin.intact [Mass/Vol] Parathyrin.intact [Mass/volume] in Serum or Plasma [facility] Parathyroid Hormone Intacton 06-28-2024 Parathyroid Hormone Intact 69.9 pg/mL Normal [facility] Comment on above: Result Comment: PERF ORMED BY:[facility] [place], [place] [phone] MEDICAL DIRECTORRADHA DURAN M.D. Performed By: #### I FE SERUM, SPE W INTERPRET, KAPPA ####[facility] ,#### [id number], [id number], FE and TIBC, RENAL, PTH, MG, URIC, ELIAS, CBCNO ####[facility] [id number] [place] [address] [facility] Phosphate [Mass/volume] in S paloma or PlasmaOrdered By: Leroy Ashby on 06-28-2024 Phosphate [Mass/Vol] Phosphate [Mass/volume] in Serum or Plasma 2.5-4.5 [facility] Platelet mean volume Auto (B ld) [Entitic vol]Ordered By: Leroy Akinsr on 06-28-2024 Platelet mean volume (Bld) [Entitic vol] Platelet mean volume [Entitic volume] in Blood by Automated count 6.3-10.7 [facility] Platelets Auto (Bld) [#/Vol] Ordered By: Leroy Isma on 06-28-2024 Platelets (Bld) [#/Vol] Platelets [#/volume] in Blood by Automated count 150-450 [facility] Potassium [Moles/volume] in Serum or PlasmaOrdered By: Leroy Ashby on 06-28-2024 Potassium [Moles/Vol] Potassium [Moles/volume] in Serum or Plasma 3.5-5.1 [facility] Prot Electrophoresis w/Inter christine 06-28-2024 Albumin [Mass/Vol] 3.1 g/dL Normal 2.9-4.4 [facility] Comment on above: Performed By: #### I FE SERUM, SPE W INTERPRET, KAPPA ####[facility] ,#### [id number], [id number], FE and TIBC, RENAL, PTH, MG, URIC, ELIAS, CBCNO ####[place] [address] [place] [address] [facility] Albumin/Globulin [Mass ratio] 0.8 {ratio} Normal 0.7-1.7 [facility] Comment on above: Performed By: #### I FE SERUM, SPE W INTERPRET, KAPPA ####[facility] ,#### [id number], [id number], FE and TIBC, RENAL, PTH, MG, URIC, ELIAS, CBCNO ####[address] [address] [facility] Kkosi-3-Hhifzimb 0.3 g/dL Normal 0.0-0.4 [facility] Comment on above: Performed By: #### I FE SERUM, SPE W INTERPRET, KAPPA ####[facility] ,#### [id number], [id number], FE and TIBC, RENAL, PTH, MG, URIC, ELIAS, CBCNO ####[address] [address] [facility] Wglfu-8-Rjzlsiyf 1.3 g/dL High 0.4-1.0 [facility] Comment on above: Performed By: #### I FE SERUM, SPE W INTERPRET, KAPPA ####[facility] ,#### [id number], [id number], FE and TIBC, RENAL, PTH, MG, URIC, ELIAS, CBCNO ####[address] [address] [facility] Beta Globulin 1.1 g/dL Normal 0.7-1.3 [facility] Comment on above: Performed By: #### I FE SERUM, SPE W INTERPRET, KAPPA ####[facility] ,#### [id number], [id number], FE and TIBC, RENAL, PTH, MG, URIC, ELIAS, CBCNO ####[address] [address] [facility] Gamma Globulin 1.1 g/dL Normal 0.4-1.8 [facility] Comment on above: Performed By: #### I FE SERUM, SPE W INTERPRET, KAPPA ####[facility] ,#### [id number], [id number], FE and TIBC, RENAL, PTH, MG, URIC, ELIAS, CBCNO ####[address] [address] [facility] Globulin (S) [Mass/Vol] 3.7 g/dL Normal 2.2-3.9 [facility] Comment on above: Performed By: #### I FE SERUM, SPE W INTERPRET, KAPPA ####[facility] ,#### [id number], [id number], FE and TIBC, RENAL, PTH, MG, URIC, ELIAS, CBCNO ####[address] [address] [facility] M-Rafiq Not Observed Normal Not Observed [facility] Comment on above: Performed By: #### I FE SERUM, SPE W INTERPRET, KAPPA ####[facility] ,#### [id number], [id number], FE and TIBC, RENAL, PTH, MG, URIC, ELIAS, CBCNO ####[address] [address] [facility] Protein [Mass/Vol] 6.8 g/dL Normal 6.0-8.5 [facility] Comment on above: Performed By: #### I FE SERUM, SPE W INTERPRET, KAPPA ####[facility] ,#### [id number], [id number], FE and TIBC, RENAL, PTH, MG, URIC, ELIAS, CBCNO ####[address] SPE-Interpretation Comment Normal . [facility] Comment on above: Result Comment: The SPE pattern demonstrates elevation of regions containing acute phase proteins suggesting an acute/subacute inflammatory response. Some conditions in which this pattern has been observed include: bacterial, viral or parasitic infection; mechanical, physical or chemical trauma; and cardiac failure. The gamma globulin region is unremarkable and evidence of monoclonal protein is not apparent. Performed at: [facility] [employer] [id number] Fur Buyer: Mohan Talbert PhD, Phone: [phone] Performed By: #### I FE SERUM, SPE W INTERPRET, KAPPA ####[facility] ,#### [id number], [id number], FE and TIBC, RENAL, PTH, MG, URIC, ELIAS, CBCNO ####[address] SPE-Note Comment Normal . [facility] Comment on above: Result Comment: Prot ein electrophoresis scan will follow via computer, mail, or wind turbine erector delivery. Performed By: #### I FE SERUM, SPE W INTERPRET, KAPPA ####[facility] ,#### [id number], [id number], FE and TIBC, RENAL, PTH, MG, URIC, ELIAS, CBCNO ####[address] RBC Auto (Bld) [#/Vol]Ordere d By: Leroy Ashby on 06-28-2024 RBC (Bld) [#/Vol] Erythrocytes [#/volume] in Blood by Automated count 3.60-5.00 [facility] Renal Function Panelon 06-28 Albumin [Mass/Vol] 3.6 g/dL Normal 3.5-5.7 [facility] Comment on above: Performed By: #### I FE SERUM, SPE W INTERPRET, KAPPA ####[facility] ,#### [id number], [id number], FE and TIBC, RENAL, PTH, MG, URIC, ELIAS, CBCNO ####[place] [phone] [facility] Anion gap [Moles/Vol] 12.9 mmol/L Normal 6.0-15.0 [facility] Comment on above: Performed By: #### I FE SERUM, SPE W INTERPRET, KAPPA ####[facility] ,#### [id number], [id number], FE and TIBC, RENAL, PTH, MG, URIC, ELIAS, CBCNO ####[place] [phone] [facility] Calcium [Mass/Vol] 9.3 mg/dL Normal 8.6-10.3 [facility] Comment on above: Performed By: #### I FE SERUM, SPE W INTERPRET, KAPPA ####[facility] ,#### [id number], [id number], FE and TIBC, RENAL, PTH, MG, URIC, ELIAS, CBCNO ####[place] [phone] [facility] Chloride [Moles/Vol] 101 mmol/L Normal 98-107 [facility] Comment on above: Performed By: #### I FE SERUM, SPE W INTERPRET, KAPPA ####[facility] ,#### [id number], [id number], FE and TIBC, RENAL, PTH, MG, URIC, ELIAS, CBCNO ####[place] [phone] [facility] CO2 [Moles/Vol] 29.5 mmol/L Normal 21.0-31.0 [facility] Comment on above: Performed By: #### I FE SERUM, SPE W INTERPRET, KAPPA ####[facility] ,#### [id number], [id number], FE and TIBC, RENAL, PTH, MG, URIC, ELIAS, CBCNO ####[address] [address] [facility] Creatinine [Mass/Vol] 1.44 mg/dL High 0.60-1.20 [facility] Comment on above: Performed By: #### I FE SERUM, SPE W INTERPRET, KAPPA ####[facility] ,#### [id number], [id number], FE and TIBC, RENAL, PTH, MG, URIC, ELIAS, CBCNO ####[place] [address] [place] [phone] [facility] Estimated GFR 36.998 mL/Min Normal [facility] Comment on above: Performed By: #### I FE SERUM, SPE W INTERPRET, KAPPA ####[facility] ,#### [id number], [id number], FE and TIBC, RENAL, PTH, MG, URIC, ELIAS, CBCNO ####[place] [address] [place] [phone] [facility] Glucose [Mass/Vol] 151 mg/dL High 70-100 [facility] Comment on above: Result Comment: [facility] Glucose Reference Range is dependent on time and content of last meal. Glucose of more than 200 mg/dL in a nonstressed, ambulatory subject supports the diagnosis of Diabetes Mellitus. ADA recommended reference range Performed By: #### I FE SERUM, SPE W INTERPRET, KAPPA ####[facility] ,#### [id number], [id number], FE and TIBC, RENAL, PTH, MG, URIC, ELIAS, CBCNO ####[place] [address] [place] [phone] [facility] Phosphate [Mass/Vol] 3.5 mg/dL Normal 2.5-4.5 [facility] Comment on above: Performed By: #### I FE SERUM, SPE W INTERPRET, KAPPA ####[facility] ,#### [id number], [id number], FE and TIBC, RENAL, PTH, MG, URIC, ELIAS, CBCNO ####[place] [address] [place] [address] [facility] Potassium [Moles/Vol] 4.4 mmol/L Normal 3.5-5.1 [facility] Comment on above: Performed By: #### I FE SERUM, SPE W INTERPRET, KAPPA ####[facility] ,#### [id number], [id number], FE and TIBC, RENAL, PTH, MG, URIC, ELIAS, CBCNO ####[place] [address] [address] Sodium [Moles/Vol] 139 mmol/L Normal 136-145 [facility] Comment on above: Performed By: #### I FE SERUM, SPE W INTERPRET, KAPPA ####[facility] ,#### [id number], [id number], FE and TIBC, RENAL, PTH, MG, URIC, ELIAS, CBCNO ####[place] [address] [address] Urea nitrogen [Mass/Vol] 28 mg/dL High 7-25 [facility] Comment on above: Performed By: #### I FE SERUM, SPE W INTERPRET, KAPPA ####[facility] ,#### [id number], [id number], FE and TIBC, RENAL, PTH, MG, URIC, ELIAS, CBCNO ####[address] Serum free kappa light chain measurementOrdered By: Leroy Ashby on 06-28-2024 Immunoglobulin light chains.kappa.free (S) [Mass/Vol] Immunoglobulin light chains.kappa.free [Mass/volume] in Serum High 3.3-19.4 [facility] Serum globulin measurement ( mass/volume)Ordered By: Leroy Ashby on 06-28-2024 Globulin (S) [Mass/Vol] Serum globulin measurement (mass/volume) 2.2-3.9 [facility] Serum immunofixation electro phoresisOrdered By: Leroy Ashby on 06-28-2024 Serum Immunofixation Comment: . [facility] Comment on above: Presence of monoclon al protein is unclear at this time. Suggestrepeat in 3 to 6 months if clinically indicated. Serum immunoglobulin free ka ppa light chains/immunoglobulin free lambda light chainsOrdered By: Leroy Isma on 06-28-2024 Immunoglobulin light chains.kappa.free/I mmunoglobulin light chains.lambda.free (S) [Mass ratio] Immunoglobulin light chains.kappa.free/I mmunoglobulin light chains.lambda.free [Mass High 0.26-1.65 [facility] Comment on above: Performed at: [facility] [address] [id number] Director: Mohan Talbert PhD, Phone: [phone] Serum or plasma IgA measurem ent (mass/volume)Ordered By: Leroy Isma on 06-28-2024 IgA [Mass/Vol] IgA [Mass/volume] in Serum or Plasma 64-422 [facility] Serum or plasma IgG measurem ent (mass/volume)Ordered By: Leroy Isma on 06-28-2024 IgG [Mass/Vol] IgG [Mass/volume] in Serum or Plasma [phone] [facility] Serum or plasma IgM measurem ent (mass/volume)Ordered By: Leroy Isma on 06-28-2024 IgM [Mass/Vol] IgM [Mass/volume] in Serum or Plasma 26-217 [facility] Comment on above: Performed at: [facility] [address] [id number] Director: Mohan Talbert PhD, Phone: [phone] Serum or plasma albumin lei urement (mass/volume)Ordered By: Leroy Isma on 06-28-2024 Albumin [Mass/Vol] Albumin [Mass/volume] in Serum or Plasma 2.9-4.4 [facility] Serum or plasma albumin/glob ulin mass ratioOrdered By: Leroy Isma on 06-28-2024 Albumin/Globulin [Mass ratio] Serum or plasma albumin/globulin mass ratio 0.7-1.7 [facility] Serum or plasma alpha 1 glob ulin measurement by electrophoresis (mass/volume)Ordered By: Leroy Isma on 06-28-2024 Alpha 1 globulin Elph [Mass/Vol] Serum or plasma alpha 1 globulin measurement by electrophoresis (mass/volume) 0.0-0.4 [facility] Serum or plasma alpha 2 glob ulin measurement by electrophoresis (mass/volume)Ordered By: Leroy Ashby on 06-28-2024 Alpha 2 globulin Elph [Mass/Vol] Serum or plasma alpha 2 globulin measurement by electrophoresis (mass/volume) High 0.4-1.0 [facility] Serum or plasma anion gap de terminationOrdered By: Leroy Ashby on 06-28-2024 Anion gap [Moles/Vol] Serum or plasma anion gap determination 6.0-15.0 [facility] Serum or plasma beta globuli n measurement by electrophoresis (mass/volume)Ordered By: Leroy Ashby on 06-28-2024 Beta globulin Elph [Mass/Vol] Serum or plasma beta globulin measurement by electrophoresis (mass/volume) 0.7-1.3 [facility] Serum or plasma gamma globul in measurement by electrophoresis (mass/volume)Ordered By: Leroy Ahsby on 06-28-2024 Gamma globulin Elph [Mass/Vol] Serum or plasma gamma globulin measurement by electrophoresis (mass/volume) 0.4-1.8 [facility] Serum or plasma immunoglobul in free lambda light chains measurement (mass/volume)Ordered By: Leroy Ashby on 06-28-2024 Immunoglobulin light chains.lambda.free [Mass/Vol] Immunoglobulin light chains.lambda.free [Mass/volume] in Serum or Plasma High 5.7-26.3 [facility] Serum or plasma iron binding capacity measurement (mass/volume)Ordered By: Leroy Ashby on 06-28-2024 Iron binding capacity [Mass/Vol] Iron binding capacity [Mass/volume] in Serum or Plasma 255-450 [facility] Serum or plasma iron saturat ion measurement (mass fraction)Ordered By: Leroy Ashby on 06-28-2024 Iron saturation [Mass fraction] Iron saturation [Mass Fraction] in Serum or Plasma 20-50 [facility] Serum total protein measurem entOrdered By: Leroy Ashby on 06-28-2024 Protein [Mass/Vol] Protein [Mass/volume] in Serum or Plasma 6.0-8.5 [facility] Sodium [Moles/volume] in Ser um or PlasmaOrdered By: Leroy Ashby on 06-28-2024 Sodium [Moles/Vol] Sodium [Moles/volume] in Serum or Plasma 136-145 [facility] Transferrin [Mass/volume] in Serum or PlasmaOrdered By: Leroy Ashby on 06-28-2024 Transferrin [Mass/Vol] Transferrin [Mass/volume] in Serum or Plasma Low 203-362 [facility] Urate [Mass/volume] in Serum or PlasmaOrdered By: Leroy Ashby on 06-28-2024 Urate [Mass/Vol] Urate [Mass/volume] in Serum or Plasma 2.3-6.6 [facility] Urea nitrogen [Mass/volume] in Serum or PlasmaOrdered By: Leroy Ashby on 06-28-2024 Urea nitrogen [Mass/Vol] Urea nitrogen [Mass/volume] in Serum or Plasma High 7-25 [facility] Uric Acidon 06-28-2024 Urate [Mass/Vol] 4.3 mg/dL Normal 2.3-6.6 [facility] Comment on above: Performed By: #### I FE SERUM, SPE W INTERPRET, KAPPA ####[facility] ,#### [id number], [id number], FE and TIBC, RENAL, PTH, MG, URIC, ELIAS, CBCNO ####[place] [address] [address] Vit. B12/Folate Profileon Cobalamin (Vitamin B12) [Mass/Vol] 311 pg/mL Normal 180-914 [facility] Comment on above: Performed By: #### I FE SERUM, SPE W INTERPRET, KAPPA ####[facility] ,#### [id number], [id number], FE and TIBC, RENAL, PTH, MG, URIC, ELIAS, CBCNO ####[address] Folate 20.4 ng/mL Normal >5.9 [facility] Comment on above: Result Comment: Jess te reference range: >5.9 ng/ml The WHO technical consultation on folate and vitamin b12 deficiencies has determined that folate concentrations less than 4 ng/ml are considered deficient. Performed By: #### I FE SERUM, SPE W INTERPRET, KAPPA ####[facility] ,#### [id number], [id number], FE and TIBC, RENAL, PTH, MG, URIC, ELIAS, CBCNO ####[facility] [place] [address] [facility] Vitamin B12 ser/plasOrdered By: Leroy Ashby on 06-28-2024 Cobalamin (Vitamin B12) [Mass/Vol] Vitamin B12 ser/plas 180-914 [facility] Vitamin D 25 Hydroxy Totalon 06-28-2024 Vitamin D 25 Hydroxy Total 59.6 ng/mL Normal 30-100 [facility] Comment on above: Result Comment: ROBERTO MIN D STATUS 25([place])VITAMIN D RANGE (ng/mL) Deficient <20 Insufficient 20 to <30 Sufficient 30 to 100 Reference: Abhijeet Lao, Stacey CHATMAN, et al. Evaluation,treatment, and prevention of vitamin D deficiency; an Endocrine Society clinical practice guideline. JCEM. 2010; 96(7):1911-30.PERFORMED BY:[address] [place], [place] [id number] MEDICAL DIRECTORRADHA DURAN M.D. Performed By: #### I FE SERUM, SPE W INTERPRET, KAPPA ####[facility] ,#### [id number], [id number], FE and TIBC, RENAL, PTH, MG, URIC, ELIAS, CBCNO ####[address] [address] [facility] Vitamin D+Metabolites [Mass/ volume] in Serum or PlasmaOrdered By: Leroy Ashby on 06-28-2024 Vitamin D+Metabolites [Mass/Vol] Vitamin D+Metabolites [Mass/volume] in Serum or Plasma 30-100 [facility] Comment on above: VITAMIN D STATUS 25( [place])VITAMIN D RANGE (ng/mL) Deficient <20 Insufficient 20 to <30Sufficient 30 to 100Reference: Abhijeet Lao, Stacey CHATMAN, et al. Evaluation,treatment, and prevention of vitamin D deficiency; an Endocrine Society clinical practice guideline. JCEM. 2010; 96(7):1911-30. XR hip LT min 2V(w/wo pelvis )*on 06-28-2024 XR hip LT min 2V(w/wo pelvis)* Normal [facility] Albumin Levelon 06-24-2024 Albumin [Mass/Vol] 3.7 g/dL Normal 3.5-5.7 [facility] Comment on above: Result Comment: PERF ORMED BY:[facility] [place], [place] [id number] MEDICAL DIRECTORRADHA DURAN M.D. Performed By: #### C BC, ALB, BMP ####[facility] [id number] [facility]#### FRUC ####[facility] , Albumin [Mass/volume] in Ser um or Plasma by Bromocresol green (BCG) dye binding methoOrdered By: Da Lozano on 06-24-2024 Albumin BCG dye [Mass/Vol] Albumin [Mass/volume] in Serum or Plasma by Bromocresol green (BCG) dye binding metho 3.5-5.7 [facility] Appearance of UrineOrdered B y: Da Lozano on 06-24-2024 Appearance (U) Urine appearance Abnormal [facility] Bacteria [Presence] in Urine by AutomatedOrdered By: Da Lozano on 06-24-2024 Bacteria Auto Ql (U) Bacteria [Presence] in Urine by Automated High None Seen [facility] Basic Metabolic Panelon 06-13 Anion gap [Moles/Vol] 14.2 mmol/L Normal 6.0-15.0 [facility] Comment on above: Performed By: #### C BC, ALB, BMP ####[facility] [id number] [facility]#### FRUC ####[facility] , Calcium [Mass/Vol] 9.6 mg/dL Normal 8.6-10.3 [facility] Comment on above: Performed By: #### C BC, ALB, BMP ####[place] [address] [place]#### FRUC ####[facility] , Chloride [Moles/Vol] 99 mmol/L Normal 98-107 [facility] Comment on above: Performed By: #### C BC, ALB, BMP ####[place] [address] [place]#### FRUC ####[facility] , CO2 [Moles/Vol] 32.5 mmol/L High 21.0-31.0 [facility] Comment on above: Performed By: #### C BC, ALB, BMP ####[address]#### FRUC ####[facility] , Creatinine [Mass/Vol] 1.62 mg/dL High 0.60-1.20 [facility] Comment on above: Performed By: #### C BC, ALB, BMP ####[place] [address] [place]#### FRUC ####[facility] , Estimated GFR 32.121 mL/Min Normal [facility] Comment on above: Performed By: #### C BC, ALB, BMP ####[place] [address] [place]#### FRUC ####[facility] , Glucose [Mass/Vol] 77 mg/dL Normal 70-100 [facility] Comment on above: Result Comment: Garita om Glucose Reference Range is dependent on time and content of last meal. Glucose of more than 200 mg/dL in a nonstressed, ambulatory subject supports the diagnosis of Diabetes Mellitus. ADA recommended reference range Performed By: #### C BC, ALB, BMP ####[place] [address] [place]#### FRUC ####[facility] , Potassium [Moles/Vol] 4.7 mmol/L Normal 3.5-5.1 [facility] Comment on above: Performed By: #### C BC, ALB, BMP ####[facility] [address] [place] [address] [place]#### FRUC ####[facility] , Sodium [Moles/Vol] 141 mmol/L Normal 136-145 [facility] Comment on above: Performed By: #### C BC, ALB, BMP ####[facility] [place] [address] [place]#### FRUC ####[facility] , Urea nitrogen [Mass/Vol] 34 mg/dL High 7-25 [facility] Comment on above: Performed By: #### C BC, ALB, BMP ####[facility] [place] [address] [place]#### FRUC ####[facility] , Basophils Auto (Bld) [#/Vol] Ordered By: Da Lozano on 06-24-2024 Basophils (Bld) [#/Vol] Automated basophil count 0.0-0.2 [facility] Basophils/100 WBC Auto (Bld) Ordered By: Da Lozano on 06-24-2024 Basophils/100 WBC (Bld) Automated basophil % . [facility] Bilirubin Test strip Ql (U)O rdered By: Da Lozano on 06-24-2024 Bilirubin Ql (U) Bilirubin.total [Presence] in Urine by Test strip Negative [facility] Calcium [Mass/volume] in Ser um or PlasmaOrdered By: Da Lozano on 06-24-2024 Calcium [Mass/Vol] Calcium [Mass/volume] in Serum or Plasma 8.6-10.3 [facility] Carbon dioxide, total [Moles /volume] in Serum or PlasmaOrdered By: Da Lozano on 06-24-2024 CO2 [Moles/Vol] Carbon dioxide, total [Moles/volume] in Serum or Plasma High 21.0-31.0 [facility] Chloride [Moles/volume] in [place] or PlasmaOrdered By: Da Lozano on 06-24-2024 Chloride [Moles/Vol] Chloride [Moles/volume] in Serum or Plasma 98-107 [facility] Color Auto (U)Ordered By: Yuki Lozano on 06-24-2024 Color (U) Color of Urine by Auto Abnormal Yellow [facility] Complete Blood Count Auto Di ffon 06-24-2024 Basophils (Bld) [#/Vol] 0.1 10*3/uL Normal 0.0-0.2 [facility] Comment on above: Result Comment: PERF ORMED BY:[address] [place], [place] [phone] MEDICAL DIRECTORRADHA DURAN M.D. Performed By: #### C BC, ALB, BMP ####[address]#### FRUC ####[facility] , Basophils/100 WBC (Bld) 1.2 % Normal . [facility] Comment on above: Performed By: #### C BC, ALB, BMP ####[address]#### FRUC ####[facility] , Eosinophils (Bld) [#/Vol] 0.4 10*3/uL Normal 0.0-0.45 [facility] Comment on above: Performed By: #### C BC, ALB, BMP ####[address]#### FRUC ####[facility] , Eosinophils/100 WBC (Bld) 3.9 % Normal . [facility] Comment on above: Performed By: #### C BC, ALB, BMP ####[address]#### FRUC ####[facility] , Erythrocyte distribution width (RBC) [Ratio] 15.6 % High 11.9-15.3 [facility] Comment on above: Performed By: #### C BC, ALB, BMP ####[place] [address] [place]#### FRUC ####[facility] , Hematocrit (Bld) [Volume fraction] 36.3 % Normal 34.0-46.4 [facility] Comment on above: Performed By: #### C BC, ALB, BMP ####[place] [address] [place]#### FRUC ####[facility] , Hemoglobin (Bld) [Mass/Vol] 11.9 g/dL Normal 11.8-15.4 [facility] Comment on above: Performed By: #### C BC, ALB, BMP ####[place] [address] [place]#### FRUC ####[facility] , Lymphocytes (Bld) [#/Vol] 2.1 10*3/uL Normal 1.00-4.8 [facility] Comment on above: Performed By: #### C BC, ALB, BMP ####[address]#### FRUC ####[facility] , Lymphocytes/100 WBC (Bld) 19.4 % Normal . [facility] Comment on above: Performed By: #### C BC, ALB, BMP ####[place] [address] [place]#### FRUC ####[facility] , MCH (RBC) [Entitic mass] 31.9 pg Normal 24.7-34.3 [facility] Comment on above: Performed By: #### C BC, ALB, BMP ####[place] [address] [place]#### FRUC ####[facility] , MCV (RBC) [Entitic vol] 97.5 fL Normal 80-100 [facility] Comment on above: Performed By: #### C BC, ALB, BMP ####[place] [address] [place]#### FRUC ####[facility] , Mean Corpuscular HGB Conc 32.7 g/dL Normal 32.0-35.0 [facility] Comment on above: Performed By: #### C BC, ALB, BMP ####[place] [address] [place]#### FRUC ####[facility] , Monocytes (Bld) [#/Vol] 0.8 10*3/uL Normal 0.0-0.8 [facility] Comment on above: Performed By: #### C BC, ALB, BMP ####[place] [address] [place]#### FRUC ####[facility] , Monocytes/100 WBC (Bld) 7.5 % Normal . [facility] Comment on above: Performed By: #### C BC, ALB, BMP ####[place] [address] [place]#### FRUC ####[facility] , Neutrophils (Bld) [#/Vol] 7.4 10*3/uL Normal 1.8-7.7 [facility] Comment on above: Performed By: #### C BC, ALB, BMP ####[place] [address] [place]#### FRUC ####[facility] , Neutrophils/100 WBC (Bld) 68.0 % Normal . [facility] Comment on above: Performed By: #### C BC, ALB, BMP ####[place] [address] [place]#### FRUC ####[facility] , NRBC% 0.0 /100{WBC} Normal 0-0.5 [facility] Comment on above: Performed By: #### C BC, ALB, BMP ####[address]#### FRUC ####[facility] , Platelet mean volume (Bld) [Entitic vol] 9.0 fL Normal 6.3-10.7 [facility] Comment on above: Performed By: #### C BC, ALB, BMP ####[place] [address] [place]#### FRUC ####[facility] , Platelets (Bld) [#/Vol] 252 10*3/uL Normal 150-450 [facility] Comment on above: Performed By: #### C BC, ALB, BMP ####[place] [address] [place]#### FRUC ####[facility] , RBC (Bld) [#/Vol] 3.73 10*6/uL Normal 3.60-5.00 [facility] Comment on above: Performed By: #### C BC, ALB, BMP ####[address]#### FRUC ####[facility] , WBC (Bld) [#/Vol] 10.9 10*3/uL Normal 3.8-11.6 [facility] Comment on above: Performed By: #### C BC, ALB, BMP ####[place] [address] [place]#### FRUC ####[facility] , Creatinine [Mass/volume] in Serum or PlasmaOrdered By: Da Lozano on 06-24-2024 Creatinine [Mass/Vol] Creatinine [Mass/volume] in Serum or Plasma High 0.60-1.20 [facility] Dipstick and Microscopicon 1 08-25-2023 Appearance (U) Turbid Critically abnormal Clear [facility] Comment on above: Order Comment: Name Collection Type:: Clean-Voided Midstream Performed By: #### A DDONUAPLUS, CUU ####[address] [place] [address] [facility] Bacteria,Urine 4+ High None Seen [facility] Comment on above: Order Comment: Name Collection Type:: Clean-Voided Midstream Performed By: #### A DDONUAPLUS, CUU ####[address] [place] [address] [place] Bilirubin,Urine Negative Normal Negative [facility] Comment on above: Order Comment: Name Collection Type:: Clean-Voided Midstream Performed By: #### A DDONUAPLUS, CUU ####[address] [address] [facility] Color (U) Light-Prowers Critically abnormal Yellow [facility] Comment on above: Order Comment: Name Collection Type:: Clean-Voided Midstream Performed By: #### A DDONUAPLUS, CUU ####[address] [address] [facility] Glucose Ql (U) Normal Normal Normal [facility] Comment on above: Order Comment: Name Collection Type:: Clean-Voided Midstream Performed By: #### A DDONUAPLUS, CUU ####[address] [address] [place] Hyaline Casts,Urine None Normal 0-8 [facility] Comment on above: Order Comment: Name Collection Type:: Clean-Voided Midstream Performed By: #### A DDONUAPLUS, CUU ####[address] [address] [place] Ketones Ql (U) Negative Normal Negative [facility] Comment on above: Order Comment: Name Collection Type:: Clean-Voided Midstream Performed By: #### A DDONUAPLUS, CUU ####[address] [address] [facility] Leukocyte esterase Test strip Ql (U) 4+ High Negative [facility] Comment on above: Order Comment: Name Collection Type:: Clean-Voided Midstream Performed By: #### A DDONUAPLUS, CUU ####[id number] [facility] Mucus,Urine Rare Normal [facility] Comment on above: Order Comment: Name Collection Type:: Clean-Voided Midstream Result Comment: PERF ORMED BY:[address] [place], [place] [phone] MEDICAL DIRECTORMOSCIONHEALTH Peng Performed By: #### A DDONUAPLUS, CUU ####[id number] [facility] Nitrite,Urine Negative Normal Negative [facility] Comment on above: Order Comment: Name Collection Type:: Clean-Voided Midstream Performed By: #### A DDONUAPLUS, CUU ####[id number] [facility] Occult Blood,Urine 1+ High Negative [facility] Comment on above: Order Comment: Name Collection Type:: Clean-Voided Midstream Result Comment: PERF ORMED BY:[address] [place], [place] [phone] MEDICAL DIRECTORMUSC [facility] Peng Performed By: #### A DDONUAPLUS, CUU ####[address] [facility] pH (U) 6.5 [pH] Normal 5.0-9.0 [facility] Comment on above: Order Comment: Name Collection Type:: Clean-Voided Midstream Performed By: #### A DDONUAPLUS, CUU ####[id number] [facility] Protein (U) [Mass/Vol] 70 mg/dL High Negative [facility] Comment on above: Order Comment: Name Collection Type:: Clean-Voided Midstream Performed By: #### A DDONUAPLUS, CUU ####[address] RBC,Urine 20 [HPF] High 0-4 [facility] Comment on above: Order Comment: Name Collection Type:: Clean-Voided Midstream Performed By: #### A DDONUAPLUS, CUU ####[address] Specificy [place],Urine 1.010 Normal 1.001-1.030 [facility] Comment on above: Order Comment: Name Collection Type:: Clean-Voided Midstream Performed By: #### A DDONUAPLUS, CUU ####[address] Squamous Epithelial Cell,Urine 20 [HPF] High 0-2 [facility] Comment on above: Order Comment: Name Collection Type:: Clean-Voided Midstream Performed By: #### A DDONUAPLUS, CUU ####[address] Urobilinogen,Urine Normal Normal Normal [facility] Comment on above: Order Comment: Name Collection Type:: Clean-Voided Midstream Performed By: #### A DDONUAPLUS, CUU ####[address] WBC CLUMP, Urine Many High None Seen [facility] Comment on above: Order Comment: Name Collection Type:: Clean-Voided Midstream Performed By: #### A DDONUAPLUS, CUU ####[address] WBC,Urine Innumerable High 0-4 [facility] Comment on above: Order Comment: Name Collection Type:: Clean-Voided Midstream Performed By: #### A DDONUAPLUS, CUU ####[address] Eosinophils Auto (Bld) [#/Vo l]Ordered By: Da Lozano on 06-24-2024 Eosinophils (Bld) [#/Vol] Automated eosinophil count 0.0-0.45 [facility] Eosinophils/100 WBC Auto (Bl d)Ordered By: Da Lozano on 06-24-2024 Eosinophils/100 WBC (Bld) Automated eosinophil % . [facility] Epithelial cells.squamous [# /area] in Urine sediment by Automated countOrdered By: Da Lozano on 06-24-2024 Epithelial cells.squamous Auto (Urine sed) [#/Area] Epithelial cells.squamous [#/area] in Urine sediment by Automated count High 0-2 [facility] Erythrocyte distribution wid th Auto (RBC) [Ratio]Ordered By: Da Lozano on 06-24-2024 Erythrocyte distribution width (RBC) [Ratio] Erythrocyte distribution width [Ratio] by Automated count High 11.9-15.3 [facility] Erythrocytes [#/area] in Uri ne sediment by Automated countOrdered By: Da Lozano on 06-24-2024 RBC Auto (Urine sed) [#/Area] Erythrocytes [#/area] in Urine sediment by Automated count High 0-4 [facility] Fructosamineon 06-24-2024 Fructosamine 308 umol/L High 0-285 [facility] Comment on above: Result Comment: Publ ished reference interval for apparently healthy subjects between age 20 and 60 is 205 - 285 umol/L and in a poorly controlled diabetic population is 228 - 563 umol/L with a mean of 396 umol/L. Performed at: [facility] [id number] Fur Buyer: Mohan Talbert PhD, Phone: [phone] BY:[address] [place], [place] [phone] MEDICAL DIRECTORRADHA DURAN M.D. Performed By: #### C BC, ALB, BMP ####[address]#### FRUC ####[facility] , Fructosamine [Moles/volume] in Serum or PlasmaOrdered By: Da Lozano on 06-24-2024 Fructosamine [Moles/Vol] Fructosamine [Moles/volume] in Serum or Plasma High 0-285 [facility] Comment on above: Published reference interval for apparently healthysubjects between age 20 and 60 is 205 - 285 umol/L and in apoorly controlled diabetic population is 228 - 563 umol/Lwith a mean of 396 umol/L.Performed at: [facility] [address] [id number] Director: Mohan Talbert PhD, Phone: [phone] Glucose [Mass/volume] in Ser um or PlasmaOrdered By: Da Lozano on 06-24-2024 Glucose [Mass/Vol] Glucose [Mass/volume] in Serum or Plasma 70-100 [facility] Comment on above: ADA recommended refe [...] [Mass/volume] in Urine by Test strip Normal [facility] Hematocrit Auto (Bld) [Volum e fraction]Ordered By: Da Lozano on 06-24-2024 Hematocrit (Bld) [Volume fraction] Hematocrit [Volume Fraction] of Blood by Automated count 34.0-46.4 [facility] Hemoglobin Test strip Ql (U) Ordered By: Da Lozano on 06-24-2024 Hemoglobin Ql (U) Hemoglobin [Presence] in Urine by Test strip High Negative [facility] Hemoglobin [Mass/volume] in BloodOrdered By: Da Lozano on 06-24-2024 Hemoglobin (Bld) [Mass/Vol] Hemoglobin [Mass/volume] in Blood 11.8-15.4 [facility] Hyaline casts [#/area] in Ur ine sediment by Automated countOrdered By: Da Lozano on 06-24-2024 Hyaline casts Auto (Urine sed) [#/Area] Hyaline casts [#/area] in Urine sediment by Automated count 0-8 [facility] Ketones Test strip Ql (U)Ord ered By: Da Lozano on 06-24-2024 Ketones Ql (U) Ketones [Presence] in Urine by Test strip Negative [facility] Leukocyte clumps [Presence] in Urine by AutomatedOrdered By: Da Lozano on 06-24-2024 Leukocyte clumps Auto Ql (U) Leukocyte clumps [Presence] in Urine by Automated High None Seen [facility] Leukocyte esterase [Presence ] in Urine by Test stripOrdered By: Da Lozano on 06-24-2024 Leukocyte esterase Test strip Ql (U) Leukocyte esterase [Presence] in Urine by Test strip High Negative [facility] Leukocytes [#/area] in Urine sediment by Automated countOrdered By: Da Lozano on 06-24-2024 WBC Auto (Urine sed) [#/Area] Leukocytes [#/area] in Urine sediment by Automated count High 0-4 [facility] Leukocytes [#/volume] correc suzi for nucleated erythrocytes in Blood by Automated counOrdered By: Da Lozano on 06-24-2024 WBC corrected for nucl RBC Auto (Bld) [#/Vol] Leukocytes [#/volume] corrected for nucleated erythrocytes in Blood by Automated coun 3.8-11.6 [facility] Lymphocytes Auto (Bld) [#/Vo l]Ordered By: Da Lozano on 06-24-2024 Lymphocytes (Bld) [#/Vol] Lymphocytes [#/volume] in Blood by Automated count 1.00-4.8 [facility] Lymphocytes/100 WBC Auto (Bl d)Ordered By: Da Lozano on 06-24-2024 Lymphocytes/100 WBC (Bld) Lymphocytes/100 leukocytes in Blood by Automated count . [facility] MCH Auto (RBC) [Entitic mass ]Ordered By: Da Lozano on 06-24-2024 MCH (RBC) [Entitic mass] MCH [Entitic mass] by Automated count 24.7-34.3 [facility] MCHC Auto (RBC) [Mass/Vol]Or dered By: Da Lozano on 06-24-2024 MCHC (RBC) [Mass/Vol] MCHC [Mass/volume] by Automated count 32.0-35.0 [facility] MCV Auto (RBC) [Entitic vol] Ordered By: Da Lozano on 06-24-2024 MCV (RBC) [Entitic vol] MCV [Entitic volume] by Automated count 80-100 [facility] Monocytes Auto (Bld) [#/Vol] Ordered By: Da Lozano on 06-24-2024 Monocytes (Bld) [#/Vol] Automated blood monocyte count 0.0-0.8 [facility] Monocytes/100 WBC Auto (Bld) Ordered By: Da Lozano on 06-24-2024 Monocytes/100 WBC (Bld) Automated monocyte % . [facility] Mucus [Presence] in Urine by AutomatedOrdered By: Da Lozano on 06-24-2024 Mucus Auto Ql (U) Mucus [Presence] in Urine by Automated [facility] Neutrophils Auto (Bld) [#/Vo l]Ordered By: Da Lozano on 06-24-2024 Neutrophils (Bld) [#/Vol] Neutrophils [#/volume] in Blood by Automated count 1.8-7.7 [facility] Neutrophils/100 WBC Auto (Bl d)Ordered By: Da Lozano on 06-24-2024 Neutrophils/100 WBC (Bld) Automated neutrophil % . [facility] Nitrite Test strip Ql (U)Ord ered By: Da Lozano on 06-24-2024 Nitrite Ql (U) Nitrite [Presence] in Urine by Test strip Negative [facility] No Panel InformationOrdered By: Da Lozano on 06-24-2024 Estimated GFR (CKD-EPI) 32.121 mL/Min [facility] Creatinine Clearance (Chem N/A [facility] Nucleated erythrocytes [Pres ence] in Blood by Automated countOrdered By: Da Lozano on 06-24-2024 Nucleated RBC Auto Ql (Bld) Nucleated erythrocytes [Presence] in Blood by Automated count 0-0.5 [facility] PST Type and Screenon 2023 ABO and Rh group Nom (Bld) Blood group A Rh(D) positive Normal [facility] Comment on above: Order Comment: Date of Surgery: [id number] Result Comment: PERF ORMED BY:[facility] [place], [place] [id number] MEDICAL DIRECTORRADHA DURAN M.D. Platelet mean volume Auto (B ld) [Entitic vol]Ordered By: Da Lozano on 06-24-2024 Platelet mean volume (Bld) [Entitic vol] Platelet mean volume [Entitic volume] in Blood by Automated count 6.3-10.7 [facility] Platelets Auto (Bld) [#/Vol] Ordered By: Da Lozano on 06-24-2024 Platelets (Bld) [#/Vol] Platelets [#/volume] in Blood by Automated count 150-450 [facility] Potassium [Moles/volume] in Serum or PlasmaOrdered By: Da Lozano on 06-24-2024 Potassium [Moles/Vol] Potassium [Moles/volume] in Serum or Plasma 3.5-5.1 [facility] Protein Test strip (U) [Mass /Vol]Ordered By: Da Lozano on 06-24-2024 Protein (U) [Mass/Vol] Protein [Mass/volume] in Urine by Test strip High Negative [facility] RBC Auto (Bld) [#/Vol]Ordere d By: Da Lozano on 06-24-2024 RBC (Bld) [#/Vol] Erythrocytes [#/volume] in Blood by Automated count 3.60-5.00 [facility] Serum or plasma anion gap de terminationOrdered By: Da Lozano on 06-24-2024 Anion gap [Moles/Vol] Serum or plasma anion gap determination 6.0-15.0 [facility] Sodium [Moles/volume] in Ser um or PlasmaOrdered By: Da Lozano on 06-24-2024 Sodium [Moles/Vol] Sodium [Moles/volume] in Serum or Plasma 136-145 [facility] Specific gravity Test strip (U) [Rel density]Ordered By: Da Lozano on 06-24-2024 Specific gravity (U) [Rel density] Specific gravity of Urine by Test strip 1.001-1.030 [facility] Urea nitrogen [Mass/volume] in Serum or PlasmaOrdered By: Da Lozano on 06-24-2024 Urea nitrogen [Mass/Vol] Urea nitrogen [Mass/volume] in Serum or Plasma High 7-25 [facility] Urine Cultureon 06-24-2024 Bacteria identified Cx Nom (U) Normal [facility] Comment on above: Performed By: #### A DDONUAPLUS, CUU ####[facility] [place] [address] [place] Urine cultureOrdered By: Landon Lozano on 06-24-2024 Bacteria identified Cx Nom (U) Urine culture [facility] Urobilinogen Test strip (U) [Mass/Vol]Ordered By: Da Lozano on 06-24-2024 Urobilinogen (U) [Mass/Vol] Urobilinogen [Mass/volume] in Urine by Test strip Normal [facility] WBC Auto (Bld) [#/Vol]Ordere d By: Da Lozano on 06-24-2024 WBC (Bld) [#/Vol] Leukocytes [#/volume] in Blood by Automated count 3.8-11.6 [facility] pH Test strip (U)Ordered By: Da Lozano on 06-24-2024 pH (U) pH of Urine by Test strip 5.0-9.0 [facility] Glucose Glucometer (BldC) [M ass/Vol]Ordered By: Yaniv Natarajan on 2024 Glucose [Mass/Vol] Capillary blood glucose measurement by glucometer (mass/volume) [facility] Comment on above: Random Glucose Refer ence Range is dependent on time and content of last meal. Glucose of more than 200 mg/dL in a nonstressed, ambulatory subject supports the diagnosis of Diabetes Mellitus. Glucose Poct Glucometerson 1 08-04-2023 Glucose [Mass/Vol] 247 mg/dL Normal [facility] Comment on above: Result Comment: [facility] Glucose Reference Range is dependent on time and content of last meal. Glucose of more than 200 mg/dL in a nonstressed, ambulatory subject supports the diagnosis of Diabetes Mellitus.PERFORMED BY:[facility] [place], [place] [phone] MEDICAL DIRECTORRADHA DURAN M.D. Performed By: #### G LULS ####Point of Care testing, Commemt1 Glu2: Cleaned Meter Normal [facility] Comment on above: Performed By: #### G LULS ####Point of Care testing, Commemt2 WILL NOTIFY DR/RN Normal [facility] Comment on above: Result Comment: PERF ORMED BY:[facility] [place] [phone] MEDICAL DIRECTORRADHA DURAN M.D. Performed By: #### G LULS ####Point of Care testing, Glucose [Mass/Vol] 174 mg/dL Normal [facility] Comment on above: Result Comment: [facility] Glucose Reference Range is dependent on time and content of last meal. Glucose of more than 200 mg/dL in a nonstressed, ambulatory subject supports the diagnosis of Diabetes Mellitus. Performed By: #### G LULS ####Point of Care testing, No Panel InformationOrdered By: Yaniv Natarajan on 2024 Bedside Glucose #[address]/rn [facility] Bedside Glucose Comment Glu2: cleaned meter [facility] XR KUBon 2024 XR KUB Normal [facility] Laboratory - Chemistry and C hemistry - challengeon 05-25-2024 Bilirubin Ql (U) Negative [facility] Glucose (U) [Mass/Vol] Negative [facility] Ketones Ql (U) Negative [facility] pH (U) 5 [pH] [facility] Specific gravity (U) [Rel density] 1.005 [facility] Urobilinogen (U) [Mass/Vol] 0.2 mg/dL [facility] Laboratory - Specimen inform ationon 05-25-2024 Appearance (U) cloudy [facility] Color (U) lightyellow [facility] Laboratory - Urinalysison Leukocyte esterase Test strip Ql (U) +++ [facility] Nitrite Ql (U) Negative [facility] Protein Ql (U) Negative [facility] No Panel Informationon 05-25 Urine Occult Blood Negative [facility] Urine Cultureon 05-25-2024 Bacteria identified Cx Nom (U) No Growth 2 Days PERFORMED BY: [facility] [address] [place] [address] PATHOLOGIST TAG WRITER RADHA DURAN M.D. Normal [facility] Comment on above: Performed By: #### C UU ####[place] [id number] [facility] Urine cultureOrdered By: Sulema Best on 05-25-2024 Bacteria identified Cx Nom (U) Urine culture [facility] Basic Metabolic Panelon 11-0 Anion gap [Moles/Vol] 11.4 mmol/L Normal 6.0-15.0 [facility] Comment on above: Performed By: #### P T, BMP, PTT, CBC ####[address] Calcium [Mass/Vol] 10.1 mg/dL Normal 8.6-10.3 [facility] Comment on above: Result Comment: PERF ORMED BY:[address] [place], [place] [phone] MEDICAL DIRECTORCORAL BECKETT M.D. Performed By: #### P T, BMP, PTT, CBC ####[place] [id number] [facility] Chloride [Moles/Vol] 98 mmol/L Normal 98-107 [facility] Comment on above: Performed By: #### P T, BMP, PTT, CBC ####[place] [id number] [facility] CO2 [Moles/Vol] 30.4 mmol/L Normal 21.0-31.0 [facility] Comment on above: Performed By: #### P T, BMP, PTT, CBC ####[place] [id number] [facility] Creatinine [Mass/Vol] 1.77 mg/dL High 0.60-1.20 [facility] Comment on above: Performed By: #### P T, BMP, PTT, CBC ####[place] [id number] [facility] GFR/1.73 sq M.predicted MDRD (S/P/Bld) [Vol rate/Area] 29.063 mL/min/{1.73_m2} Normal [facility] Comment on above: Performed By: #### P T, BMP, PTT, CBC ####[address] Glucose [Mass/Vol] 252 mg/dL High 70-100 [facility] Comment on above: Result Comment: [facility] Glucose Reference Range is dependent on time and content of last meal. Glucose of more than 200 mg/dL in a nonstressed, ambulatory subject supports the diagnosis of Diabetes Mellitus. ADA recommended reference range Performed By: #### P T, BMP, PTT, CBC ####[address] Potassium [Moles/Vol] 4.8 mmol/L Normal 3.5-5.1 [facility] Comment on above: Performed By: #### P T, BMP, PTT, CBC ####[address] Sodium [Moles/Vol] 135 mmol/L Low 136-145 [facility] Comment on above: Performed By: #### P T, BMP, PTT, CBC ####[address] Urea nitrogen [Mass/Vol] 45 mg/dL High 7-25 [facility] Comment on above: Performed By: #### P T, BMP, PTT, CBC ####[address] Basophils Auto (Bld) [#/Vol] Ordered By: Yaniv Natarajan on 05-21-2024 Basophils (Bld) [#/Vol] Automated basophil count 0.0-0.2 [facility] Basophils/100 WBC Auto (Bld) Ordered By: Yaniv Natarajan on 05-21-2024 Basophils/100 WBC (Bld) Automated basophil % . [facility] Calcium [Mass/volume] in Ser um or PlasmaOrdered By: Yaniv Natarajan on 05-21-2024 Calcium [Mass/Vol] Calcium [Mass/volume] in Serum or Plasma 8.6-10.3 [facility] Carbon dioxide, total [Moles /volume] in Serum or PlasmaOrdered By: Yaniv Natarajan on 05-21-2024 CO2 [Moles/Vol] Carbon dioxide, total [Moles/volume] in Serum or Plasma 21.0-31.0 [facility] Chloride [Moles/volume] in [place] or PlasmaOrdered By: Yaniv Natarajan on 05-21-2024 Chloride [Moles/Vol] Chloride [Moles/volume] in Serum or Plasma 98-107 [facility] Complete Blood Count Auto Di ffon 05-21-2024 Basophils (Bld) [#/Vol] 0.1 10*3/uL Normal 0.0-0.2 [facility] Comment on above: Result Comment: PERF ORMED BY:[address] [place], [place] [phone] MEDICAL DIRECTORCORAL BECKETT M.D. Performed By: #### P T, BMP, PTT, CBC ####[address] Basophils/100 WBC (Bld) 0.8 % Normal . [facility] Comment on above: Performed By: #### P T, BMP, PTT, CBC ####[address] Eosinophils (Bld) [#/Vol] 0.3 10*3/uL Normal 0.0-0.45 [facility] Comment on above: Performed By: #### P T, BMP, PTT, CBC ####[address] Eosinophils/100 WBC (Bld) 2.4 % Normal . [facility] Comment on above: Performed By: #### P T, BMP, PTT, CBC ####[address] Erythrocyte distribution width (RBC) [Ratio] 16.1 % High 11.9-15.3 [facility] Comment on above: Performed By: #### P T, BMP, PTT, CBC ####[address] Hematocrit (Bld) [Volume fraction] 36.6 % Normal 34.0-46.4 [facility] Comment on above: Performed By: #### P T, BMP, PTT, CBC ####[address] Hemoglobin (Bld) [Mass/Vol] 12.0 g/dL Normal 11.8-15.4 [facility] Comment on above: Performed By: #### P T, BMP, PTT, CBC ####[address] Lymphocytes (Bld) [#/Vol] 1.8 10*3/uL Normal 1.00-4.8 [facility] Comment on above: Performed By: #### P T, BMP, PTT, CBC ####[address] Lymphocytes/100 WBC (Bld) 14.2 % Normal . [facility] Comment on above: Performed By: #### P T, BMP, PTT, CBC ####[address] MCH (RBC) [Entitic mass] 32.1 pg Normal 24.7-34.3 [facility] Comment on above: Performed By: #### P T, BMP, PTT, CBC ####[address] MCV (RBC) [Entitic vol] 98.0 fL Normal 80-100 [facility] Comment on above: Performed By: #### P T, BMP, PTT, CBC ####[address] Mean Corpuscular HGB Conc 32.7 g/dL Normal 32.0-35.0 [facility] Comment on above: Performed By: #### P T, BMP, PTT, CBC ####[address] Monocytes (Bld) [#/Vol] 0.8 10*3/uL Normal 0.0-0.8 [facility] Comment on above: Performed By: #### P T, BMP, PTT, CBC ####[address] Monocytes/100 WBC (Bld) 6.4 % Normal . [facility] Comment on above: Performed By: #### P T, BMP, PTT, CBC ####[address] Neutrophils (Bld) [#/Vol] 9.7 10*3/uL High 1.8-7.7 [facility] Comment on above: Performed By: #### P T, BMP, PTT, CBC ####[address] Neutrophils/100 WBC (Bld) 76.2 % Normal . [facility] Comment on above: Performed By: #### P T, BMP, PTT, CBC ####[address] NRBC% 0.1 /100{WBC} Normal 0-0.5 [facility] Comment on above: Performed By: #### P T, BMP, PTT, CBC ####[address] Platelet mean volume (Bld) [Entitic vol] 9.3 fL Normal 6.3-10.7 [facility] Comment on above: Performed By: #### P T, BMP, PTT, CBC ####[address] Platelets (Bld) [#/Vol] 216 10*3/uL Normal 150-450 [facility] Comment on above: Performed By: #### P T, BMP, PTT, CBC ####[address] RBC (Bld) [#/Vol] 3.73 10*6/uL Normal 3.60-5.00 [facility] Comment on above: Performed By: #### P T, BMP, PTT, CBC ####[place] [address] [place] [id number] [facility] WBC (Bld) [#/Vol] 12.8 10*3/uL High 3.8-11.6 [facility] Comment on above: Performed By: #### P T, BMP, PTT, CBC ####[facility] [address] [place] [id number] [facility] Creatinine [Mass/volume] in Serum or PlasmaOrdered By: Yaniv Natarajan on 05-21-2024 Creatinine [Mass/Vol] Creatinine [Mass/volume] in Serum or Plasma High 0.60-1.20 [facility] Eosinophils Auto (Bld) [#/Vo l]Ordered By: Yaniv Natarajan on 05-21-2024 Eosinophils (Bld) [#/Vol] Automated eosinophil count 0.0-0.45 [facility] Eosinophils/100 WBC Auto (Bl d)Ordered By: Yaniv Natarajan on 05-21-2024 Eosinophils/100 WBC (Bld) Automated eosinophil % . [facility] Erythrocyte distribution wid th Auto (RBC) [Ratio]Ordered By: Yaniv Natarajan on 05-21-2024 Erythrocyte distribution width (RBC) [Ratio] Erythrocyte distribution width [Ratio] by Automated count High 11.9-15.3 [facility] Glucose [Mass/volume] in Ser um or PlasmaOrdered By: Yaniv Natarajan on 05-21-2024 Glucose [Mass/Vol] Glucose [Mass/volume] in Serum or Plasma High 70-100 [facility] Comment on above: ADA recommended refe rence rangeRandom Glucose Reference Range is dependent on time and content of last meal. Glucose of more than 200 mg/dL in a nonstressed, ambulatory subject supports the diagnosis of Diabetes Mellitus. Hematocrit Auto (Bld) [Volum e fraction]Ordered By: Yaniv Natarajan on 05-21-2024 Hematocrit (Bld) [Volume fraction] Hematocrit [Volume Fraction] of Blood by Automated count 34.0-46.4 [facility] Hemoglobin [Mass/volume] in BloodOrdered By: Yaniv Natarajan on 05-21-2024 Hemoglobin (Bld) [Mass/Vol] Hemoglobin [Mass/volume] in Blood 11.8-15.4 [facility] INR in Platelet poor plasma by Coagulation assayOrdered By: Yaniv Natarajan on 05-21-2024 INR Coag (PPP) [Relative time] INR in Platelet poor plasma by Coagulation assay [facility] Comment on above: INR Therapeutic Rang [...] in Blood by Automated coun High 3.8-11.6 [facility] Lymphocytes Auto (Bld) [#/Vo l]Ordered By: Yaniv Natarajan on 05-21-2024 Lymphocytes (Bld) [#/Vol] Lymphocytes [#/volume] in Blood by Automated count 1.00-4.8 [facility] Lymphocytes/100 WBC Auto (Bl d)Ordered By: Yaniv Natarajan on 05-21-2024 Lymphocytes/100 WBC (Bld) Lymphocytes/100 leukocytes in Blood by Automated count . [facility] MCH Auto (RBC) [Entitic mass ]Ordered By: Yaniv Natarajan on 05-21-2024 MCH (RBC) [Entitic mass] MCH [Entitic mass] by Automated count 24.7-34.3 [facility] MCHC Auto (RBC) [Mass/Vol]Or dered By: Yaniv Natarajan on 05-21-2024 MCHC (RBC) [Mass/Vol] MCHC [Mass/volume] by Automated count 32.0-35.0 [facility] MCV Auto (RBC) [Entitic vol] Ordered By: Yaniv Natarajan on 05-21-2024 MCV (RBC) [Entitic vol] MCV [Entitic volume] by Automated count 80-100 [facility] Monocytes Auto (Bld) [#/Vol] Ordered By: Yaniv Natarajan on 05-21-2024 Monocytes (Bld) [#/Vol] Automated blood monocyte count 0.0-0.8 [facility] Monocytes/100 WBC Auto (Bld) Ordered By: Yaniv Natarajan on 05-21-2024 Monocytes/100 WBC (Bld) Automated monocyte % . [facility] Neutrophils Auto (Bld) [#/Vo l]Ordered By: Yaniv Natarajan on 05-21-2024 Neutrophils (Bld) [#/Vol] Neutrophils [#/volume] in Blood by Automated count High 1.8-7.7 [facility] Neutrophils/100 WBC Auto (Bl d)Ordered By: Yaniv Natarajan on 05-21-2024 Neutrophils/100 WBC (Bld) Automated neutrophil % . [facility] No Panel InformationOrdered By: Yaniv Natarajan on 05-21-2024 Estimated GFR (CKD-EPI) 29.063 mL/Min [facility] Creatinine Clearance (Chem N/A [facility] Nucleated erythrocytes [Pres ence] in Blood by Automated countOrdered By: Yaniv Natarajan on 05-21-2024 Nucleated RBC Auto Ql (Bld) Nucleated erythrocytes [Presence] in Blood by Automated count 0-0.5 [facility] Partial Thromboplastin Timeo n 05-21-2024 aPTT Coag (Bld) [Time] 29.9 s Normal 25.1-36.5 [facility] Comment on above: Result Comment: A he matocrit value greater than 55% may lead to inaccurate results in coagulation testing. Patients having hematocrit values >55% require a special collection tube for coagulation studies. Please contact the laboratory at [phone] for redraw instructions.PERFORMED BY:[facility] [place], [place] [phone] MEDICAL DIRECTORCORAL BECKETT M.D. Performed By: #### P T, BMP, PTT, CBC ####[facility] [place] [id number] [facility] Platelet mean volume Auto (B ld) [Entitic vol]Ordered By: Yaniv Natarajan on 05-21-2024 Platelet mean volume (Bld) [Entitic vol] Platelet mean volume [Entitic volume] in Blood by Automated count 6.3-10.7 [facility] Platelets Auto (Bld) [#/Vol] Ordered By: Yaniv Natarajan on 05-21-2024 Platelets (Bld) [#/Vol] Platelets [#/volume] in Blood by Automated count 150-450 [facility] Potassium [Moles/volume] in Serum or PlasmaOrdered By: Yaniv Natarajan on 05-21-2024 Potassium [Moles/Vol] Potassium [Moles/volume] in Serum or Plasma 3.5-5.1 [facility] Prothrombin Time INRon 05-21 INR Coag (PPP) [Relative time] 1.0 {INR} Normal [facility] Comment on above: Result [...] By: #### P T, BMP, PTT, CBC ####[facility] [address] [place] [id number] [facility] PT Coag (PPP) [Time] 11.1 s Normal 9.0-12.9 [facility] Comment on above: Result Comment: A he matocrit value greater than 55% may lead to inaccurate results in coagulation testing. Patients having hematocrit values >55% require a special collection tube for coagulation studies. Please contact the laboratory at [phone] for redraw instructions. Performed By: #### P T, BMP, PTT, CBC ####[facility] [address] [place] [id number] [facility] Prothrombin time (PT)Ordered By: Yaniv Natarajan on 05-21-2024 PT Coag (PPP) [Time] Prothrombin time (PT) 9.0-12.9 [facility] Comment on above: A hematocrit value g reater than 55% may lead to inaccurate results in coagulation testing. Patients having hematocrit values >55% require a special collection tube for coagulation studies. Please contact the laboratory at [phone] for redraw instructions. RBC Auto (Bld) [#/Vol]Ordere d By: Yaniv Natarajan on 05-21-2024 RBC (Bld) [#/Vol] Erythrocytes [#/volume] in Blood by Automated count 3.60-5.00 [facility] Serum or plasma anion gap de terminationOrdered By: Yaniv Natarajan on 05-21-2024 Anion gap [Moles/Vol] Serum or plasma anion gap determination 6.0-15.0 [facility] Sodium [Moles/volume] in Ser um or PlasmaOrdered By: Yaniv Natarajan on 05-21-2024 Sodium [Moles/Vol] Sodium [Moles/volume] in Serum or Plasma Low 136-145 [facility] Urea nitrogen [Mass/volume] in Serum or PlasmaOrdered By: Yaniv Natarajan on 05-21-2024 Urea nitrogen [Mass/Vol] Urea nitrogen [Mass/volume] in Serum or Plasma High 7-25 [facility] WBC Auto (Bld) [#/Vol]Ordere d By: Yaniv Natarajan on 05-21-2024 WBC (Bld) [#/Vol] Leukocytes [#/volume] in Blood by Automated count High 3.8-11.6 [facility] aPTT in Platelet poor plasma by Coagulation assayOrdered By: Yaniv Natarajan on 05-21-2024 aPTT Coag (PPP) [Time] Activated partial thromboplastin time (aPTT) in platelet poor plasma by coagulation a 25.1-36.5 [facility] Comment on above: A hematocrit value g reater than 55% may lead to inaccurate results in coagulation testing. Patients having hematocrit values >55% require a special collection tube for coagulation studies. Please contact the laboratory at [phone] for redraw instructions. Laboratory - Chemistry and C hemistry - challengeon 04-07-2024 Bilirubin Ql (U) Negative [facility] Glucose (U) [Mass/Vol] Negative [facility] Ketones Ql (U) Negative [facility] pH (U) 7.0 [pH] [facility] Specific gravity (U) [Rel density] 1.010 [facility] Urobilinogen (U) [Mass/Vol] 0.2 mg/dL [facility] Laboratory - Specimen inform ationon 09-25-2024 Appearance (U) cloudy [facility] Color (U) yellow [facility] Laboratory - Urinalysison Leukocyte esterase Test strip Ql (U) large [facility] Nitrite Ql (U) Positive [facility] Protein Ql (U) 30 [facility] No Panel Informationon 04-07 Urine Occult Blood small [facility] Urine cultureOrdered By: Sulema Best on 04-07-2024 Bacteria identified Cx Nom (U) Urine culture [facility] Immunofixation for Urineon 0 03-19-2024 Interpretation Immunofixation (U) [Interp] Comment . [facility] Comment on above: No monoclonality det ected.Performed at: [address] [place] [address] [id number] Director: Mohan Talbert PhD, Phone: [phone] Interpretation Immunofixation (U) [Interp] Immunofixation for Urine . [facility] Comment on above: No monoclonality det ected.Performed at: [employer] [place], [place] [id number] Director: Mohan Talbert PhD, Phone: [phone] Laboratory - Chemistry and C hemistry - challengeon 03-19-2024 Bilirubin Ql (U) Negative NEGATIVE [facility] Glucose (U) [Mass/Vol] Negative NEGATIVE [facility] Ketones Ql (U) Negative NEGATIVE [facility] pH (U) 6.0 [pH] 5.0-9.0 [facility] Specific gravity (U) [Rel density] 1.010 1.005-1.025 [facility] Urobilinogen Qn (U) 0.2 {Joe'U}/dL 0.2-1.0 [facility] Laboratory - Specimen inform ationon 03-19-2024 Appearance (U) SL CLOUDY CLEAR [facility] Color (U) YELLOW YELLOW [facility] Laboratory - Urinalysison Leukocyte esterase Test strip Ql (U) LARGE Abnormal NEGATIVE [facility] Mucus Ql (Urine sed) NONE SEEN NONE SEEN [facility] Nitrite Ql (U) Positive Abnormal NEGATIVE [facility] Protein (U) [Mass/Vol] 77.9 mg/dL High <=11.9 [facility] Protein Ql (U) 100 mg/dL Abnormal NEG/TRACE [facility] No Panel Informationon 03-19 Urine Bacteria MODERATE #/HPF Abnormal NONE SEEN [facility] Urine Occult Blood SMALL Abnormal NEGATIVE [facility] Urine Other Casts NONE SEEN #/LPF NONE SEEN [facility] Urine Other Crystals None Seen #/HPF None Seen [facility] Urine Random Creatinine 25.17 mg/dL 20.00-300.00 [facility] Urine RBC 2-5 #/HPF Abnormal 0-2 [facility] Urine Squamous Epithelial Cells FEW #/LPF Abnormal NONE/RARE [facility] Urine WBC >100 #/HPF Abnormal NONE SEEN [facility] Urine protein/creatinine rat ioon 03-19-2024 Protein/Creatinine (U) [Ratio] 3.09 [facility] Protein/Creatinine (U) [Ratio] Urine protein/creatinine ratio [facility] Albumin [Mass/volume] in Ser um or Plasmaon 03-17-2024 Albumin [Mass/Vol] 3.2 g/dL 2.9-4.4 [facility] Albumin [Mass/Vol] Albumin [Mass/volume] in Serum or Plasma 2.9-4.4 [facility] Erythrocyte distribution wid th Auto (RBC) [Ratio]on 03-17-2024 Erythrocyte distribution width (RBC) [Ratio] 15.3 % High 11.0-15.0 [facility] Erythrocyte distribution width (RBC) [Ratio] Erythrocyte distribution width [Ratio] by Automated count High 11.0-15.0 [facility] Estimated glomerular filtrat ion rate (GFR) non- Americanon 03-17-2024 GFR/1.73 sq M.predicted among non-blacks MDRD (S/P/Bld) [Vol rate/Area] 29 mL/min/{1.73_m2} Low >=60 [facility] GFR/1.73 sq M.predicted among non-blacks MDRD (S/P/Bld) [Vol rate/Area] Estimated glomerular filtration rate (GFR) non- Low >=60 [facility] Hematocrit Auto (Bld) [Volum e fraction]on 03-17-2024 Hematocrit (Bld) [Volume fraction] 37.9 % 36.0-48.0 [facility] Hematocrit (Bld) [Volume fraction] Hematocrit [Volume Fraction] of Blood by Automated count 36.0-48.0 [facility] Hemoglobin [Mass/volume] in Bloodon 03-17-2024 Hemoglobin (Bld) [Mass/Vol] 11.6 g/dL Low 12.0-16.0 [facility] Hemoglobin (Bld) [Mass/Vol] Hemoglobin [Mass/volume] in Blood Low 12.0-16.0 [facility] IgA [Mass/volume] in Serum o r Plasmaon 03-17-2024 IgA [Mass/Vol] 366 mg/dL 64-422 [facility] IgA [Mass/Vol] IgA [Mass/volume] in Serum or Plasma 64-422 [facility] IgG [Mass/volume] in Serum o r Plasmaon 03-17-2024 IgG [Mass/Vol] 1043 mg/dL [phone] [facility] IgG [Mass/Vol] IgG [Mass/volume] in Serum or Plasma [phone] [facility] IgM [Mass/volume] in Serum o r Plasmaon 03-17-2024 IgM [Mass/Vol] 87 mg/dL 26-217 [facility] IgM [Mass/Vol] IgM [Mass/volume] in Serum or Plasma 26-217 [facility] Immunoglobulin light chains. kappa.free [Mass/volume] in Serumon 03-17-2024 Immunoglobulin light chains.kappa.free (S) [Mass/Vol] 112.4 mg/L Abnormal 3.3-19.4 [facility] Immunoglobulin light chains.kappa.free (S) [Mass/Vol] Immunoglobulin light chains.kappa.free [Mass/volume] in Serum Abnormal 3.3-19.4 [facility] Immunoglobulin light chains. kappa.free/Immunoglobulin light chains.lambda.free [Radha 03-17-2024 Immunoglobulin light chains.kappa.free/I mmunoglobulin light chains.lambda.free (S) [Mass ratio] 1.84 Abnormal 0.26-1.65 [facility] Comment on above: Performed at: [facility] [address] [place], [place] [id number] Director: Mohan Talbert PhD, Phone: [phone] Immunoglobulin light chains.kappa.free/I mmunoglobulin light chains.lambda.free (S) [Mass ratio] Immunoglobulin light chains.kappa.free/I mmunoglobulin light chains.lambda.free [Mass Abnormal 0.26-1.65 [facility] Comment on above: Performed at: [facility] [address] [place], [place] [id number] Director: Mohan Talbert PhD, Phone: [phone] Immunoglobulin light chains. lambda.free [Mass/volume] in Serum or Plasmaon 03-17-2024 Immunoglobulin light chains.lambda.free [Mass/Vol] 61.0 mg/L Abnormal 5.7-26.3 [facility] Immunoglobulin light chains.lambda.free [Mass/Vol] Immunoglobulin light chains.lambda.free [Mass/volume] in Serum or Plasma Abnormal 5.7-26.3 [facility] Iron binding capacity [Mass/ volume] in Serum or Plasmaon 03-17-2024 Iron binding capacity [Mass/Vol] 256.0 ug/dL 250.0-450.0 [facility] Iron binding capacity [Mass/Vol] Iron binding capacity [Mass/volume] in Serum or Plasma 250.0-450.0 [facility] Iron saturation [Mass Fracti on] in Serum or Plasmaon 03-17-2024 Iron saturation [Mass fraction] 25.4 % [facility] Iron saturation [Mass fraction] Iron saturation [Mass Fraction] in Serum or Plasma [facility] Laboratory - Chemistry and C hemistry - challengeon 03-17-2024 Albumin [Mass/Vol] 3.1 g/dL Low 3.4-5.0 [facility] Calcium [Mass/Vol] 9.8 mg/dL 8.5-10.1 [facility] Chloride [Moles/Vol] 100 mmol/L 98-107 [facility] CO2 [Moles/Vol] 29.6 mmol/L 21.0-32.0 [facility] Cobalamin (Vitamin B12) [Mass/Vol] 456 pg/mL 232-1245 [facility] Comment on above: Performed at: - [address] [id number] Director: Mohan Talbert PhD, Phone: [phone] Creatinine [Mass/Vol] 1.71 mg/dL High 0.55-1.02 [facility] Ferritin [Mass/Vol] 174.0 ng/mL 8.0-252.0 [facility] GFR/1.73 sq M.predicted MDRD (S/P/Bld) [Vol rate/Area] 35 mL/min/{1.73_m2} Low >=60 [facility] Glucose [Mass/Vol] 137 mg/dL High 74-106 [facility] Iron [Mass/Vol] 65.0 ug/dL 50.0-170.0 [facility] Magnesium [Mass/Vol] 1.9 mg/dL 1.8-2.4 [facility] Potassium [Moles/Vol] 4.1 mmol/L 3.5-5.1 [facility] Sodium [Moles/Vol] 140 mmol/L 136-145 [facility] Urate [Mass/Vol] 4.6 mg/dL 2.6-6.0 [facility] Urea nitrogen [Mass/Vol] 37.0 mg/dL High 7.0-18.0 [facility] Urea nitrogen/Creatinine [Mass ratio] 21.6 mg/mg [facility] Leukocytes [#/volume] correc suzi for nucleated erythrocytes in Blood by Automated counon 03-17-2024 WBC corrected for nucl RBC Auto (Bld) [#/Vol] 9.1 10 3/uL 4.0-11.0 [facility] WBC corrected for nucl RBC Auto (Bld) [#/Vol] Leukocytes [#/volume] corrected for nucleated erythrocytes in Blood by Automated coun 4.0-11.0 [facility] MCH Auto (RBC) [Entitic mass ]on 03-17-2024 MCH (RBC) [Entitic mass] 31.2 pg 26.7-34.0 [facility] MCH (RBC) [Entitic mass] MCH [Entitic mass] by Automated count 26.7-34.0 [facility] MCHC Auto (RBC) [Mass/Vol]on 03-17-2024 MCHC (RBC) [Mass/Vol] 30.6 g/dL 29.9-35.2 [facility] MCHC (RBC) [Mass/Vol] MCHC [Mass/volume] by Automated count 29.9-35.2 [facility] MCV Auto (RBC) [Entitic vol] on 03-17-2024 MCV (RBC) [Entitic vol] 101.9 fL High 81.0-99.0 [facility] MCV (RBC) [Entitic vol] MCV [Entitic volume] by Automated count High 81.0-99.0 [facility] No Panel Informationon 03-17 25-Hydroxy Vitamin D Total 91.3 ng/mL [facility] Comment on above: <20 ng/mL Vit D defi cient20-<30 ng/mL Vit D imffdaxtnueo75-308 ng/mL Vit D sufficient>100 ng/mL Potential Toxicity Folate 19.10 ng/mL 8.60-58.90 [facility] Parathyroid Hormone (Intact) 28 pg/mL 15-65 [facility] Comment on above: Performed at: [address] [id number] Director: Mohan Talbert PhD, Phone: [phone] Phosphorus Level 3.6 mg/dL 2.6-4.7 [facility] Protein Electrophoresis M-Rafiq Not Observed g/dL Not Observed [facility] Protein Electrophoresis Note Comment . [facility] Comment on above: Protein electrophore sis scan will follow via computer,mail, or wind turbine erector delivery. Platelet mean volume Auto (B ld) [Entitic vol]on 03-17-2024 Platelet mean volume (Bld) [Entitic vol] 11.5 fL 9.5-13.5 [facility] Platelet mean volume (Bld) [Entitic vol] Platelet mean volume [Entitic volume] in Blood by Automated count 9.5-13.5 [facility] Platelets Auto (Bld) [#/Vol] on 03-17-2024 Platelets (Bld) [#/Vol] 232 10 3/uL 150-450 [facility] Platelets (Bld) [#/Vol] Platelets [#/volume] in Blood by Automated count 150-450 [facility] Protein [Mass/volume] in Ser um or Plasmaon 03-17-2024 Protein [Mass/Vol] 6.9 g/dL 6.0-8.5 [facility] Protein [Mass/Vol] Protein [Mass/volume] in Serum or Plasma 6.0-8.5 [facility] RBC Auto (Bld) [#/Vol]on RBC (Bld) [#/Vol] 3.72 10 6/uL Low 4.20-5.40 [facility] RBC (Bld) [#/Vol] Erythrocytes [#/volume] in Blood by Automated count Low 4.20-5.40 [facility] Serum globulin measurement ( mass/volume)on 03-17-2024 Globulin (S) [Mass/Vol] 3.7 g/dL 2.2-3.9 [facility] Globulin (S) [Mass/Vol] Serum globulin measurement (mass/volume) 2.2-3.9 [facility] Serum or plasma albumin/glob ulin mass ratioon 03-17-2024 Albumin/Globulin [Mass ratio] 0.9 {ratio} 0.7-1.7 [facility] Albumin/Globulin [Mass ratio] Serum or plasma albumin/globulin mass ratio 0.7-1.7 [facility] Serum or plasma alpha 1 glob ulin measurement by electrophoresis (mass/volume)on 03-17-2024 Alpha 1 globulin Elph [Mass/Vol] 0.3 g/dL 0.0-0.4 [facility] Alpha 1 globulin Elph [Mass/Vol] Serum or plasma alpha 1 globulin measurement by electrophoresis (mass/volume) 0.0-0.4 [facility] Serum or plasma alpha 2 glob ulin measurement by electrophoresis (mass/volume)on 03-17-2024 Alpha 2 globulin Elph [Mass/Vol] 1.3 g/dL Abnormal 0.4-1.0 [facility] Alpha 2 globulin Elph [Mass/Vol] Serum or plasma alpha 2 globulin measurement by electrophoresis (mass/volume) Abnormal 0.4-1.0 [facility] Serum or plasma anion gap de terminationon 03-17-2024 Anion gap [Moles/Vol] 14.5 mmol/L [facility] Anion gap [Moles/Vol] Serum or plasma anion gap determination [facility] Serum or plasma beta globuli n measurement by electrophoresis (mass/volume)on 03-17-2024 Beta globulin Elph [Mass/Vol] 1.0 g/dL 0.7-1.3 [facility] Beta globulin Elph [Mass/Vol] Serum or plasma beta globulin measurement by electrophoresis (mass/volume) 0.7-1.3 [facility] Serum or plasma gamma globul in measurement by electrophoresis (mass/volume)on 03-17-2024 Gamma globulin Elph [Mass/Vol] 1.1 g/dL 0.4-1.8 [facility] Gamma globulin Elph [Mass/Vol] Serum or plasma gamma globulin measurement by electrophoresis (mass/volume) 0.4-1.8 [facility] Serum or plasma immunoelectr ophoresis interpretationon 03-17-2024 Interpretation IEP [Interp] Comment: . [facility] Comment on above: Presence of monoclon al protein is unclear at this time. Suggestrepeat in 3 to 6 months if clinically indicated. Interpretation IEP [Interp] Serum or plasma immunoelectrophores is interpretation . [facility] Comment on above: Presence of monoclon [...] suprapubic pain. She was subsequently admitted to [facility] with acute metabolic encephalopathy secondary to sepsis [...] you! Giovana [phone] -- From: KADE MARLOW, [facility] To: Sagar ROB, Giovana; Sent: 03/09/2024 10:53:27 EDT Subject: RE: Coding Query Caller Name: LEXI TATUM; Caller Number: , E. coli urinary tract infection?secondary to ureteral stent. Present on admission. Thank you. Normal [facility] ED Note-Physicianon 03-04-20 ED Note-Physician ED Note-Physician [...] a cardiac history and follows with [facility] heart cardiology. 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 On deep vein thrombosis (DVT) prophylaxis (Z79.899: Other [facility] (current) drug therapy) Orders: Sodium Chloride 0.9% [...] made to ensure accuracy, however, inadvertently computerized expense clerk mistakes may be present. Appropriate healthcare PPE was used in evaluating this patient. Problem List/Past Medical History Ongoing Chronic kidney disease, stage 3 unspecified Class 3 severe obesity with serious comorbidity in adult Diabetic pe (more content not included)... Normal [facility] Comment on above: Result Comment: Elec tronically Signed By: Rudy Gupta PA-C\.br\Date and Time Signed: 02/26/24 19:01 EDT\.br\Electronically Co-Signed By: Baljit Hawkins MD\.br\Date and Time Co-Signed: 03/04/24 22:01 EDT Troponin 1 Hr.on 03-03-2024 Troponin HS 70.30 pg/mL Abnormal 10.10-27.10 [facility] Comment on above: Order Comment: 183 Result Comment: Crit ical Result Verified by Previous Result Called to Rudy Patrick RN @1833 02/26/2024 [facility] The 95% CI (Confidence Interval) PPV (Positive Predictive Value) for myocardial infarction in females is 38 pg/mL, in males 51 pg/mL. The results should be used in conjunction with clinical conditions of myocardial infarction. ([employer] High Sensitivity Troponin I Instructions For Use, CIQUAL, February 2018) Critical Result Verified by Previous Result The 95% CI (Confidence Interval) PPV (Positive Predictive Value) for myocardial infarction in females is 38 pg/mL, in males 51 pg/mL. The results should be used in conjunction with clinical conditions of myocardial infarction. ([employer] High Sensitivity Troponin I Instructions For Use, CIQUAL, February 2018) Performed By: #### 1 [id number] #### [facility] [address] [place] [address] Ad Infuse Message Officeon [employer] Office Ad Infuse Message Office --- --- --- --- --- --- --- --- --- From: Mayra DirectInbox To: LEXI TATUM Sent: 03/01/24 02:30:40 AM EDT Subject: Discharge Summary Ready to View A summary regarding your recent visit is available in the Documents section of your health record. Normal [facility] C Urineon 02-29-2024 Bacteria identified Cx Nom [...] R1: This test was performed at: [facility], [address] [place] [address], [address] , [place], Normal [facility] Comment on above: Performed By: #### 2 [id number] #### [facility] [address] [place] [address] CHEMISTRYOrdered By: Lab ROP User on 02-29-2024 Glucose [Mass/Vol] 137 mg/dL High 55 - 99 mg/dL [facility] C POC Subsection Comment on above: Result Comment: Tomas PERLA POC Device SN [id number] 1 Invalid Interpretation Code [facility] POC Subsection POC User ID [id number] 1 Invalid Interpretation Code [facility] POC Subsection POC Username JIE MONK Invalid Interpretation Code [facility] POC Subsection Glucose [Mass/Vol] 130 mg/dL High 55 - 99 mg/dL [facility] C POC Subsection Comment on above: Result Comment: Tomas PERLA POC Device SN [id number] 1 Invalid Interpretation Code [facility] POC Subsection POC User ID [id number] 1 Invalid Interpretation Code [facility] POC Subsection POC Username JIE MONK Invalid Interpretation Code [facility] POC Subsection Capillary Glucose POCon 02-11 Glucose [Mass/Vol] 137 mg/dL High 55-99 [facility] Comment on above: Result Comment: Tomas PERLA Performed By: #### 2 [id number] #### [facility] [address] [place] [address] Glucose [Mass/Vol] 130 mg/dL High 55-99 [facility] Comment on above: Result Comment: Tomas PERLA Performed By: #### 2 [id number] #### [facility] [address] [place] [address] Discharge Note-Nursingon Discharge Note-Nursing Discharge Note-Nursing LEXI TATUM :1945 Visit Date:02/26/2024 Inpatient Discharge Instructions Your Care Team Admitting Physician - [facility] Reason for Your Visit Fatigue Your Diagnosis [...] BEST When: 03/05/2024 01:45 PM EDT Where: [address] [place] [address]- Business (1) Medications What How Much When Why Instructions Next Dose New cephalexin (Keflex 500 mg Cap) 1 Capsules By Mouth 3 times a day Urinary tract infection Duration: 4 Days Pickup at [facility] 03/01/2024 @ 9:00 AM Unchanged acetaminophen [...] Pharmacy Information [facility]: [address] [facility] (more content not included)... Normal [id number] 02-29-2024 HbA1c (Bld) [Mass fraction] 7.4 % High <=5.9 [facility] Comment on above: Performed By: #### 7 [id number] #### [facility] [address] [place] [address] Inpatient Clinical Summaryon 02-29-2024 Inpatient Clinical Summary Inpatient Clinical Summary [address] [address] Clinical Summary Person Information: Name: LEXI TATUM Age: 78 Years : 1945 Sex: Female PCP: STEFAN BEST MD Marital Status: Race: White Ethnicity: Non- or Language: [place] Visit Id: Visit Reason: Chest pain; ALOC Speciality: Acuity: Enc Type: Inpatient Med Service: Medical Arrival: 02/26/2024 17:28:58 Discharge: Dispo Type: Admitted as IP to this Hosp Address: [address] [place] [id number] Provider Notes: Diagnosis: 1:Acute metabolic encephalopathy; 2:Sepsis; [...] Follow up: With: Address: When: STEFAN BEST [address] [place] [address] Business (1) 03/05/2024 1:45 PM Patient Education Information: Normal [facility] Inpatient Patient Summaryon 02-29-2024 Inpatient Patient Summary Inpatient Patient Summary [address] [address] Patient Discharge Instructions PERSON INFORMATION [...] None Follow up: With: Address: When: STEFAN SGAE [address] [facility] [place] [address] Business (03/05/2024 1:45 PM In the event [...] New Medications [facility], [address] [facility] [place] [id number], [phone] cephalexin (Keflex 500 mg Cap) 1 Capsules [...] AC&HS. Refills (more content not included)... Normal [facility] BMPon 02-28-2024 Anion gap [Moles/Vol] 12 mmol/L Normal 12-27 [facility] Comment on above: Performed By: #### 2 [id number] #### [facility] [address] [place] [address] Calcium [Mass/Vol] 8.8 mg/dL Low 8.9-11.1 [facility] Comment on above: Performed By: #### 2 [id number] #### [facility] [address] [place] [address] Chloride [Moles/Vol] 104 mmol/L Normal 101-111 [facility] Comment on above: Performed By: #### 2 [id number] #### [facility] [address] [place] [address] CO2 [Moles/Vol] 25 mmol/L Normal 21-31 [facility] Comment on above: Performed By: #### 2 [id number] #### [facility] [address] [place] [address] Creatinine [Mass/Vol] 1.5 mg/dL High 0.5-1.3 [facility] Comment on above: Performed By: #### 2 [id number] #### [facility] [address] [place] [address] Glucose [Mass/Vol] 53 mg/dL Low 55-199 [facility] Comment on above: Performed By: #### 2 [id number] #### [facility] [address] [place] [address] Potassium [Moles/Vol] 4.5 mmol/L Normal 3.5-5.3 [facility] Comment on above: Performed By: #### 2 [id number] #### [facility] [address] [place] [address] Sodium [Moles/Vol] 136 mmol/L Normal 135-145 [facility] Comment on above: Performed By: #### 2 [id number] #### [facility] [address] [place] [address] Urea nitrogen [Mass/Vol] 36 mg/dL High 5-21 [facility] Comment on above: Performed By: #### 2 [id number] #### [facility] [address] [place] [address] Urea nitrogen/Creatinine [Mass ratio] 24 No Units High 10-20 [facility] Comment on above: Performed By: #### 2 [id number] #### [facility] [address] [place] [address] CHEMISTRYOrdered By: Lab ROP User on 02-28-2024 Glucose [Mass/Vol] 132 mg/dL High 55 - 99 mg/dL [facility] C POC Subsection Comment on above: Result Comment: Tomas saleem RN/ POC Device SN [id number] 1 Invalid Interpretation Code [facility] POC Subsection POC User ID [id number] 1 Invalid Interpretation Code [facility] POC Subsection POC Username ANTONELLA MUNGUIA Invalid Interpretation Code [facility] POC Subsection CHEMISTRYOrdered By: SYSTEM SYSTEM on [...] 02-11 Glucose [Mass/Vol] 132 mg/dL High 55-99 [facility] Comment on above: Result Comment: Tomas PERLA Performed By: #### 2 [id number] #### [facility] [address] [place] [address] Glucose [Mass/Vol] 118 mg/dL High 55-99 [facility] Comment on above: Result Comment: Tomas saleem RN/ Performed By: #### 2 [id number] #### [facility] [address] [place] [address] Glucose [Mass/Vol] 229 mg/dL High 55-99 [facility] Comment on above: Result Comment: Tomas saleem RN/ Performed By: #### 2 [id number] #### [facility] [address] [place] [address] Glucose [Mass/Vol] 229 mg/dL High 55-99 [facility] Comment on above: Performed By: #### 2 [id number] #### [facility] [address] [place] [address] Glucose [Mass/Vol] 56 mg/dL Normal 55-99 [facility] Comment on above: Result Comment: Tomas saleem RN/ Performed By: #### 2 [id number] #### [facility] [address] [place] [address] Extra [place] 02-28-2024 WB Tube Collected Yes Invalid Interpretation Code [facility] Comment on above: Performed By: #### 1 [id number] #### [facility] [address] [place] [address] eGFRon 02-28-2024 eGFR 35 mL/min/1.73 m2 Low >=59 [facility] Comment on above: Order Comment: Order added by Discern Expert. Performed By: #### 1 [id number] #### [facility] [address] [place] [address] BMPon 02-27-2024 Anion gap [Moles/Vol] 12 mmol/L Normal 6-16 [facility] Comment on above: Performed By: #### 2 [id number] #### [facility] [address] [place] [address] Calcium [Mass/Vol] 8.4 mg/dL Low 8.9-11.1 [facility] Comment on above: Performed By: #### 2 [id number] #### [facility] [address] [place] [address] Chloride [Moles/Vol] 104 mmol/L Normal 101-111 [facility] Comment on above: Performed By: #### 2 [id number] #### [facility] [address] [place] [address] CO2 [Moles/Vol] 25 mmol/L Normal 21-31 [facility] Comment on above: Performed By: #### 2 [id number] #### [facility] [address] [place] [address] Creatinine [Mass/Vol] 1.6 mg/dL High 0.5-1.3 [facility] Comment on above: Performed By: #### 2 [id number] #### [facility] [address] [place] [address] Glucose [Mass/Vol] 182 mg/dL Normal 55-199 [facility] Comment on above: Performed By: #### 2 [id number] #### [facility] [address] [place] [address] Potassium [Moles/Vol] 4.6 mmol/L Normal 3.5-5.3 [facility] Comment on above: Performed By: #### 2 [id number] #### [facility] [address] [place] [address] Sodium [Moles/Vol] 136 mmol/L Normal 135-145 [facility] Comment on above: Performed By: #### 2 [id number] #### [facility] [address] [place] [address] Urea nitrogen [Mass/Vol] 40 mg/dL High 5-21 [facility] Comment on above: Performed By: #### 2 [id number] #### [facility] [address] [place] [address] Urea nitrogen/Creatinine [Mass ratio] 25 No Units High 10-20 [facility] Comment on above: Performed By: #### 2 [id number] #### [facility] [address] [place] [address] CBC w/ Auto Diffon 08-16-202 4 Basophils/100 WBC (Bld) 0.3 % Normal 0.0-2.0 [facility] Comment on above: Performed By: #### 2 [id number] #### [facility] [address] [place] [address] Basophils/Leukocyte s Auto (Bld) [Pure # fraction] 0.0 E9/L Normal 0.0-0.2 [facility] Comment on above: Performed By: #### 2 [id number] #### [facility] [address] [place] [address] Eosinophils (Bld) [#/Vol] 0.0 E9/L Normal 0.0-0.5 [facility] Comment on above: Performed By: #### 2 [id number] #### [facility] [address] [place] [address] Eosinophils/100 WBC (Bld) 0.3 % Normal 0.0-8.0 [facility] Comment on above: Performed By: #### 2 [id number] #### [facility] [address] [place] [address] Erythrocyte distribution width (RBC) [Ratio] 16.2 % High 10.9-14.2 [facility] Comment on above: Performed By: #### 2 [id number] #### [facility] [address] [place] [address] Hematocrit (Bld) [Volume fraction] 34.2 % Normal 34.0-46.0 [facility] Comment on above: Performed By: #### 2 [id number] #### [facility] [address] [place] [address] Hemoglobin (Bld) [Mass/Vol] 11.0 g/dL Low 12.0-16.0 [facility] Comment on above: Performed By: #### 2 [id number] #### [facility] [address] [place] [address] Lymphocytes (Bld) [#/Vol] 0.8 E9/L Low 1.0-4.0 [facility] Comment on above: Performed By: #### 2 [id number] #### [facility] [address] [place] [address] Lymphocytes/100 WBC (Bld) 8.7 % Low 14.0-50.0 [facility] Comment on above: Performed By: #### 2 [id number] #### [facility] [address] [place] [address] MCH (RBC) [Entitic mass] 32.0 pg Normal 27.0-34.0 [facility] Comment on above: Performed By: #### 2 [id number] #### [facility] [address] [place] [address] MCHC (RBC) [Mass/Vol] 32.2 g/dL Normal 31.4-36.0 [facility] Comment on above: Performed By: #### 2 [id number] #### [facility] [address] [place] [address] MCV (RBC) [Entitic vol] 99.4 fL Normal 80.0-100.0 [facility] Comment on above: Performed By: #### 2 [id number] #### [facility] [address] [place] [address] Monocytes (Bld) [#/Vol] 0.7 E9/L Normal 0.2-1.0 [facility] Comment on above: Performed By: #### 2 [id number] #### [facility] [address] [place] [address] Neutrophils (Bld) [#/Vol] 7.9 E9/L High 2.0-7.5 [facility] Comment on above: Performed By: #### 2 [id number] #### [facility] [address] [place] [address] Neutrophils/100 WBC (Bld) 83.7 % High 36.0-75.0 [facility] Comment on above: Performed By: #### 2 [id number] #### [facility] [address] [place] [address] Platelet mean volume (Bld) [Entitic vol] 9.0 fL Normal 6.4-10.8 [facility] Comment on above: Performed By: #### 2 [id number] #### [facility] [address] [place] [address] Platelets (Bld) [#/Vol] 215.0 E9/L Normal 150.0-500.0 [facility] Comment on above: Performed By: #### 2 [id number] #### [facility] [address] [place] [address] RBC (Bld) [#/Vol] 3.4 E12/L Low 4.3-5.9 [facility] Comment on above: Performed By: #### 2 [id number] #### [facility] [address] [place] [address] WBC corrected for nucl RBC Auto (Bld) [#/Vol] 9.5 E9/L Normal 4.0-11.0 [facility] Comment on above: Performed By: #### 2 [id number] #### [facility] [address] [place] [address] CHEMISTRYOrdered By: SYSTEM SYSTEM on 02-27-2024 Anion [...] High Sensitivity Troponin I Instructions For Use, CIQUAL, February 2018) CHEMISTRYOrdered By: Bre Heart on 02-27-2024 HbA1c (Bld) [Mass fraction] 7.4 % High <=5.9% [facility] ChemAutoSS CT Head or Brain w/o [place]ras [...] MD Transcribed by: NIKKI Technologist: ALEX Normal [facility] Capillary Glucose POCon 02-11 Glucose [Mass/Vol] 181 mg/dL High 55-99 [facility] Comment on above: Result Comment: Tomas saleem RN/ Performed By: #### 2 [id number] #### [facility] [address] [place] [address] Glucose [Mass/Vol] 153 mg/dL High 55-99 [facility] Comment on above: Performed By: #### 2 [id number] #### [facility] [address] [place] [address] Glucose [Mass/Vol] 147 mg/dL High 55-99 [facility] Comment on above: Result Comment: Tomas PERLA Performed By: #### 2 [id number] #### [facility] [address] [place] [address] Glucose [Mass/Vol] 159 mg/dL High 55-99 [facility] Comment on above: Performed By: #### 2 [id number] #### [facility] [address] [place] [address] Coding Queryon 02-27-2024 Coding Query Coding Query -- From: Deana Puckett RN To: KADE MARLOW, [facility]; Sent: 02/27/2024 07:17:42 EDT Subject: Coding Query [...] Caller Number: Giovanni , M Thank you. [facility] Coding Query Coding Query -- From: Deana [...] No Sepsis- POA; Had AMS also Normal [facility] Coding Query Coding Query -- From: Deana [...] is desired or expected. Thank you!deana Jimenez [facility] Coding Query Coding Query -- From: Deana [...] is desired or expected. Thank you!deana Jimenez [facility] HEMATOLOGYOrdered By: SYSTEM SYSTEM on 02-27-2024 Basophils/100 [...] 02-27-2024 Inpatient Clinical Summary Inpatient Clinical Summary [place] [id number] Clinical Summary Person Information: Name: LEXI TATUM Age: 78 Years : 1945 Sex: Female PCP: STEFAN BEST MD Marital Status: Race: White Ethnicity: Non- or Language: [place] Visit Id: Visit Reason: Chest pain; ALOC Speciality: Acuity: Enc Type: Inpatient Med Service: Medical Arrival: 02/26/2024 17:28:58 Discharge: Dispo Type: Admitted as IP to this Hosp Address: [address] [place] [id number] Provider Notes: Diagnosis: 1:Acute metabolic encephalopathy; 2:Sepsis; [...] Follow up: With: Address: When: STEFAN BEST [address] [place] [address] Business (1) Patient Education Information: Normal [facility] Inpatient Patient Summaryon 02-27-2024 Inpatient Patient Summary Inpatient Patient Summary [place] [address] Patient Discharge Instructions PERSON INFORMATION Name: LEXI [...] Follow up: With: Address: When: STEFAN BEST [address] [place], [place] [id number] Business (1) In the event that this [...] Dose: rosuvasta (more content not included)... Normal [facility] Interdisciplinary Note - Tejas e Manageron 02-27-2024 Interdisciplinary Note - Pasteuriser Operator Interdisciplinary Note - Pasteuriser Operator CRM to room to discuss DC planning. [...] board updated. CRM following [facility] accepts on [facility] side with semi private room, has to have 3 M stay and could DC 02/28 [facility] accepted if that is plan at DC Patient does not want a shared room and said she will just DC home with HH Normal [facility] Comment on above: Result Comment: Naseem alatorreally Signed By: Stacie aWtts\.mane\Date and Time Signed: 02/27/24 15:22 EDT Interdisciplinary [...] to follow Friday-Friday, progressing as tolerates. Normal [facility] Interdisciplinary Note - PTo n 02-27-2024 Interdisciplinary Note - PT Interdisciplinary Note - PT Initial PT eval completed. 6 Clicks AM-PAC . Recommend SNF vs HH PT. FAmily concern with safety at home alone when they are working. Spouse also to have TKA next week. Pt would benefit from strengthening prior to pending LIVIER. Will see daily. Normal [facility] Interdisciplinary Note - Soc ial Workeron 02-27-2024 Interdisciplinary Note - Traffic Lieutenant Interdisciplinary Note - Traffic Lieutenant There was a system generated request for [...] if there are any further questions. Normal [facility] Lactic Acidon 02-27-2024 Lactic Acid Lvl 1.4 mmol/L Normal 0.5-2.2 [facility] Comment on above: Performed By: #### 2 [id number] #### [facility] [address] [place] [address] TOBRAMYCIN:SUSC:PT:ISOLATE:O RDQN:MICOrdered By: Elisa Love on 02-27-2024 Tobramycin JOHAN [Susc] 20,000 cfu/ml Escherichia coli [facility] Tobramycin JOHAN [Susc]Ordered By: Elisa Love on 02-27-2024 Escherichia coli Escherichia coli [facility] Troponin 6 Hr.on 02-27-2024 Troponin HS 38.90 pg/mL Abnormal 10.10-27.10 [facility] Comment on above: Result Comment: Crit ical [...] Sensitivity Troponin I Instructions For Use, [employer], February 2018) Performed By: #### 1 [id number] #### [facility] [address] [place] [address] UA with Cult Rflxon 02-27-20 24 Bilirubin Ql (U) dupl Invalid Interpretation Code [facility] Comment on above: Performed By: #### 4 [id number] #### [facility] [address] [place] [address] Clarity (U) dupl Invalid Interpretation Code [facility] Comment on above: Performed By: #### 4 [id number] #### [facility] [address] [place] [address] Color (U) dupl Invalid Interpretation Code [facility] Comment on above: Result Comment: dupl icate order/credited 02/27/2024 08:19 CSS Microscopic readings are only performed on those samples that meet specific criteria set forth by [facility]. Performed By: #### 4 [id number] #### [facility] [address] [place] [address] Glucose Ql (U) dupl Invalid Interpretation Code [facility] Comment on above: Performed By: #### 4 [id number] #### [facility] [address] [place] [address] Hemoglobin Auto test strip (U) [Mass/Vol] dupl Invalid Interpretation Code [facility] Comment on above: Performed By: #### 4 [id number] #### [facility] [address] [place] [address] Ketones Auto test strip Ql (U) dupl Invalid Interpretation Code [facility] Comment on above: Performed By: #### 4 [id number] #### [facility] [address] [place] [address] Leukocyte esterase Auto test strip Ql (U) dupl Invalid Interpretation Code [facility] Comment on above: Performed By: #### 4 [id number] #### [facility] [address] [place] [address] Nitrite Auto test strip Ql (U) dupl Invalid Interpretation Code [facility] Comment on above: Performed By: #### 4 [id number] #### [facility] [address] [place] [address] pH (U) dupl Invalid Interpretation Code 5.0-9.0 [facility] Comment on above: Performed By: #### 4 [id number] #### [facility] [address] [place] [address] Protein Ql (U) dupl Invalid Interpretation Code [facility] Comment on above: Performed By: #### 4 [id number] #### [facility] [address] [place] [address] Specific gravity (U) [Rel density] dupl Invalid Interpretation Code 1.005-1.030 [facility] Comment on above: Performed By: #### 4 [id number] #### [facility] [address] [place] [address] Urobilinogen (U) [Mass/Vol] dupl Invalid Interpretation Code [facility] Comment on above: Performed By: #### 4 [id number] #### [facility] [address] [place] [address] Bacteria Auto Ql (U) 1+ /HPF Abnormal Trace [facility] Comment on above: Performed By: #### 4 [id number] #### [facility] [address] [place] [address] Bilirubin Ql (U) Negative Normal Negative [facility] Comment on above: Performed By: #### 4 [id number] #### [facility] [address] [place] [address] Clarity (U) Turbid Abnormal Clear [facility] Comment on above: Performed By: #### 4 [id number] #### [facility] [address] [place] [address] Color (U) Light-Prowers Abnormal Yellow [facility] Comment on above: Result Comment: Micr oscopic readings are only performed on those samples that meet specific criteria set forth by [facility]. Performed By: #### 4 [id number] #### [facility] [address] [place] [address] Epithelial cells.squamous Auto (Urine sed) [#/Area] 0-2 Invalid Interpretation Code [facility] Comment on above: Performed By: #### 4 [id number] #### [facility] [address] [place] [address] Glucose Ql (U) Negative Normal Negative [facility] Comment on above: Performed By: #### 4 [id number] #### [facility] [address] [place] [address] Hemoglobin Auto test strip (U) [Mass/Vol] 3+ mg/dL Abnormal Negative [facility] Comment on above: Performed By: #### 4 [id number] #### [facility] [address] [place] [address] Ketones Auto test strip Ql (U) Negative Normal Negative [facility] Comment on above: Performed By: #### 4 [id number] #### [facility] [address] [place] [address] Leukocyte clumps Auto (Urine sed) [#/Area] 11-20 Abnormal [facility] Comment on above: Performed By: #### 4 [id number] #### [facility] [address] [place] [address] Leukocyte esterase Auto test strip Ql (U) 500 [place]/uL Abnormal Negative [facility] Comment on above: Performed By: #### 4 [id number] #### [facility] [address] [place] [address] Mucus Auto Ql (U) Trace Normal Negative [facility] Comment on above: Performed By: #### 4 [id number] #### [facility] [address] [place] [address] Nitrite Auto test strip Ql (U) 1+ mg/dL Abnormal Negative [facility] Comment on above: Performed By: #### 4 [id number] #### [facility] [address] [place] [address] pH (U) 7.0 [pH] Invalid Interpretation Code 5.0-9.0 [facility] Comment on above: Performed By: #### 4 [id number] #### [facility] [address] [place] [address] Protein Ql (U) 2+ mg/dL Abnormal Negative [facility] Comment on above: Performed By: #### 4 [id number] #### [facility] [address] [place] [address] RBC Ql (U) 31-75 Abnormal 0-3 [facility] Comment on above: Performed By: #### 4 [id number] #### [facility] [address] [place] [address] Specific gravity (U) [Rel density] 1.011 Invalid Interpretation Code 1.005-1.030 [facility] Comment on above: Performed By: #### 4 [id number] #### [facility] [address] [place] [address] Urobilinogen (U) [Mass/Vol] Negative Normal Negative [facility] Comment on above: Performed By: #### 4 [id number] #### [facility] [address] [place] [address] WBC Auto (Urine sed) [#/Area] >75 Abnormal 0-5 [facility] Comment on above: Performed By: #### 4 [id number] #### [facility] [address] [place] [address] URINALYSISOrdered By: SYSTEM SYSTEM on 02-27-2024 Bacteria Auto Ql (U) 1+ /HPF Invalid Interpretation Code Trace/HPF [facility] UA Auto SS Bilirubin Ql (U) Negative Normal Negativemg/dL [facility] UA Auto SS Clarity (U) Turbid *ABN* (02/27/24 3:19 AM) Invalid Interpretation Code Clear [facility] UA Auto SS Color (U) Light-Prowers 3 *ABN* (02/27/24 3:19 AM) Invalid Interpretation Code Yellow [facility] UA Auto SS Comment on above: Interpretive Data: M icroscopic readings are only performed on those samples that meet specific criteria set forth by [facility]. Epithelial cells.squamous Auto (Urine sed) [#/Area] [...] AM) Invalid Interpretation Code 1.005 - 1.030 [facility] Auto SS Urobilinogen (U) [Mass/Vol] Negative Normal Negativemg/dL [facility] Auto SS WBC Auto (Urine sed) [#/Area] >75 graded/HPF Invalid Interpretation Code 0-5graded/HPF [facility] UA Auto SS URINALYSISOrdered By: Elisa Love on 02-27-2024 Bilirubin Ql (U) dupl Invalid Interpretation Code [facility] UA Auto SS Clarity (U) dupl Invalid Interpretation Code [facility] UA Auto SS Color (U) dupl Invalid Interpretation Code [facility] UA Auto SS Comment on above: Result Comment: dupl icate order/credited 02/27/2024 08:19 CSS Interpretive Data: M icroscopic readings are only performed on those samples that meet specific criteria set forth by [facility]. Glucose Ql (U) dupl Invalid Interpretation Code [facility] UA Auto SS Hemoglobin Auto test strip (U) [Mass/Vol] dupl Invalid Interpretation Code [facility] UA Auto SS Ketones Auto test strip Ql (U) dupl Invalid Interpretation Code [facility] UA Auto SS Leukocyte esterase Auto test strip Ql (U) dupl Invalid Interpretation Code [facility] UA Auto SS Nitrite Auto test strip Ql (U) dupl Invalid Interpretation Code [facility] UA Auto SS pH (U) dupl Invalid Interpretation Code 5.0 - 9.0 [facility] UA Auto SS Protein Ql (U) dupl Invalid Interpretation Code [facility] UA Auto SS Specific gravity (U) [Rel density] dupl Invalid Interpretation Code 1.005 - 1.030 [facility] UA Auto SS Urobilinogen (U) [Mass/Vol] dupl Invalid Interpretation Code [facility] UA Auto SS URINALYSISOrdered By: Rudy Gupta on 02-27-2024 UA Spec Desc Clean Catch (02/27/24 3:19 AM) Normal [facility] UA Auto SS Work Phone: URINALYSISOrdered By: Marifer CHANCE on 02-27-2024 UA Spec Desc Random Urine (02/27/24 3:19 AM) Normal [facility] UA Auto SS Work Phone: XR Chest [...] mGy = . DAP = . Normal [facility] eGFRon 02-27-2024 eGFR 33 mL/min/1.73 m2 Low >=59 [facility] Comment on above: Order Comment: Order added by Discern Expert. Performed By: #### 1 [id number] #### [facility] [address] [place] [address] BB Draw & Holdon 02-26-2024 BB D&H Sample drawn for Blood Ba Normal [facility] Comment on above: Performed By: #### 1 [id number] #### [facility] [address] [place] [address] [facility] Anion gap [Moles/Vol] 11 mmol/L Normal - [facility] Comment on above: Performed By: #### 2 [id number] #### [facility] [address] [place] [address] Calcium [Mass/Vol] 8.7 mg/dL Low 8.9-11.1 [facility] Comment on above: Performed By: #### 2 [id number] #### [facility] [address] [place] [address] Chloride [Moles/Vol] 100 mmol/L Low 101-111 [facility] Comment on above: Performed By: #### 2 [id number] #### [facility] [address] [place] [address] CO2 [Moles/Vol] 26 mmol/L Normal 21-31 [facility] Comment on above: Performed By: #### 2 [id number] #### [facility] [address] [place] [address] Creatinine [Mass/Vol] 1.8 mg/dL High 0.5-1.3 [facility] Comment on above: Performed By: #### 2 [id number] #### [facility] [address] [place] [address] Glucose [Mass/Vol] 97 mg/dL Normal 55-199 [facility] Comment on above: Performed By: #### 2 [id number] #### [facility] [address] [place] [address] Potassium [Moles/Vol] 4.4 mmol/L Normal 3.5-5.3 [facility] Comment on above: Performed By: #### 2 [id number] #### [facility] [address] [place] [address] Sodium [Moles/Vol] 133 mmol/L Low 135-145 [facility] Comment on above: Performed By: #### 2 [id number] #### [facility] [address] [place] [address] Urea nitrogen [Mass/Vol] 39 mg/dL High 5-21 [facility] Comment on above: Performed By: #### 2 [id number] #### [facility] [address] [place] [address] Urea nitrogen/Creatinine [Mass ratio] 22 No Units High 10-20 [facility] Comment on above: Performed By: #### 2 [id number] #### [facility] [address] [place] [address] CBC w/ Auto Diffon 4 Basophils/100 WBC (Bld) 1.0 % Normal 0.0-2.0 [facility] Comment on above: Performed By: #### 2 [id number] #### [facility] [address] [place] [address] Basophils/Leukocyte s Auto (Bld) [Pure # fraction] 0.1 E9/L Normal 0.0-0.2 [facility] Comment on above: Performed By: #### 2 [id number] #### [facility] [address] [place] [address] Eosinophils (Bld) [#/Vol] 0.1 E9/L Normal 0.0-0.5 [facility] Comment on above: Performed By: #### 2 [id number] #### [facility] [address] [place] [address] Eosinophils/100 WBC (Bld) 0.5 % Normal 0.0-8.0 [facility] Comment on above: Performed By: #### 2 [id number] #### [facility] [address] [place] [address] Erythrocyte distribution width (RBC) [Ratio] 15.8 % High 10.9-14.2 [facility] Comment on above: Performed By: #### 2 [id number] #### [facility] [address] [place] [address] Hematocrit (Bld) [Volume fraction] 34.4 % Normal 34.0-46.0 [facility] Comment on above: Performed By: #### 2 [id number] #### [facility] [address] [place] [address] Hemoglobin (Bld) [Mass/Vol] 10.8 g/dL Low 12.0-16.0 [facility] Comment on above: Performed By: #### 2 [id number] #### [facility] [address] [place] [address] Lymphocytes (Bld) [#/Vol] 1.1 E9/L Normal 1.0-4.0 [facility] Comment on above: Performed By: #### 2 [id number] #### [facility] [address] [place] [address] Lymphocytes/100 WBC (Bld) 8.4 % Low 14.0-50.0 [facility] Comment on above: Performed By: #### 2 [id number] #### [facility] [address] [place] [address] MCH (RBC) [Entitic mass] 31.4 pg Normal 27.0-34.0 [facility] Comment on above: Performed By: #### 2 [id number] #### [facility] [address] [place] [address] MCHC (RBC) [Mass/Vol] 31.5 g/dL Normal 31.4-36.0 [facility] Comment on above: Performed By: #### 2 [id number] #### [facility] [address] [place] [address] MCV (RBC) [Entitic vol] 99.8 fL Normal 80.0-100.0 [facility] Comment on above: Performed By: #### 2 [id number] #### [facility] [address] [place] [address] Monocytes (Bld) [#/Vol] 1.0 E9/L Normal 0.2-1.0 [facility] Comment on above: Performed By: #### 2 [id number] #### [facility] [address] [place] [address] Neutrophils (Bld) [#/Vol] 10.5 E9/L High 2.0-7.5 [facility] Comment on above: Performed By: #### 2 [id number] #### [facility] [address] [place] [address] Neutrophils/100 WBC (Bld) 82.2 % High 36.0-75.0 [facility] Comment on above: Performed By: #### 2 [id number] #### [facility] [address] [place] [address] Platelet mean volume (Bld) [Entitic vol] 8.8 fL Normal 6.4-10.8 [facility] Comment on above: Performed By: #### 2 [id number] #### [facility] [address] [place] [address] Platelets (Bld) [#/Vol] 211.0 E9/L Normal 150.0-500.0 [facility] Comment on above: Performed By: #### 2 [id number] #### [facility] [address] [place] [address] RBC (Bld) [#/Vol] 3.4 E12/L Low 4.3-5.9 [facility] Comment on above: Performed By: #### 2 [id number] #### [facility] [address] [place] [address] WBC corrected for nucl RBC Auto (Bld) [#/Vol] 12.8 E9/L High 4.0-11.0 [facility] Comment on above: Performed By: #### 2 [id number] #### [facility] [address] [place] [address] CHEMISTRYOrdered By: SYSTEM SYSTEM on 02-26-2024 Troponin HS 59.70 pg/mL Invalid Interpretation Code 10.10 - 27.10 pg/mL [facility] Comment on above: Result Comment: Crit ical Result Verified by Previous Result Critical Result I_TnIHS:59.7 Called to and read back by: AMANDA PRESLEY at: 02/26/2024 21:24:01 by:[id number] Interpretive Data: T he 95% CI (Confidence Interval) PPV (Positive Predictive Value) for myocardial infarction in females is 38 pg/mL, in males 51 pg/mL. The results should be used in conjunction with clinical conditions of myocardial infarction. (Access High Sensitivity Troponin I Instructions For Use, [employer], February 2018) Lactic Acid Lvl 0.6 mmol/L [...] High Sensitivity Troponin I Instructions For Use, [employer], February 2018) Anion gap [Moles/Vol] 11 mmol/L [...] 30.9 s Normal 25.1 - 36.5 second(s) [facility] Auto Coag Comment on above: Interpretive Data: [...] the same coagulation reagent and instrumentation as [facility]. Currently there are no coagulation studies available worldwide for children to 14 days, and no normal ranges. Heparin therapeutic range (represented by Anti-Factor Xa activity of 0.2 - 0.4 U/mL) corresponds to PTT of 56.6 - 109.0 sec. INR Coag (PPP) [Relative time] 1.07 {INR} Invalid Interpretation Code [facility] Comment on above: Interpretive Data: I NR results are specifically intended to assess patients stabilized on long-term Anticoagulation therapy suggested INR s Less Intensive Anticoagulation 2.0 3.0 Conventional Range 3.0 4.5 PT Coag (PPP) [Time] 12.0 s Normal 9.4 - 12.5 second(s) [facility] Co[facility] Comment on above: Interpretive Data: [...] the same coagulation reagent and instrumentation as [facility]. Currently there are no coagulation studies available worldwide for children to 14 days, and no normal ranges. Capillary Glucose POCon 02-11 Glucose [Mass/Vol] 64 mg/dL Normal 55-99 [facility] Comment on above: Result Comment: Tomas saleem RN/ Performed By: #### 2 [id number] #### [facility] [address] [place] [address] ED Clinical Summaryon 2023 ED Clinical Summary ED Clinical Summary [address] [address] ED Clinical Summary Person Information Name: LEXI TATUM [facility] Age: 78 Years : 1945 Sex: Female Language: S[place]an PCP: STEFAN BEST MD Marital Status: Visit Id: Visit Reason: Chest pain; ALOC Speciality: Acuity: 1 Enc Type: Observation Med Service: Emergency Arrival: 02/26/2024 17:28:58 Discharge: LOS: 000 02:17 Checkin: 02/26/2024 17:28:58 Checkout: 02/26/2024 19:45:18 Dispo Type: Admitted as IP to this [facility] EVENTS: Event Name Event Status Request [...] 18:57:34 Patient Care Request 02/26/2024 18:57:34 ADDRESS: [address] [place] [id number] [facility] DOC NOTES: MEDICAL INFORMATION: Prescriptions Given: PATIENT EDUCATION INFORMATION: Instructions: Follow up: DIAGNOSIS: 1:Sepsis; 2:Urinary tract infection; 3:Acute kidney injury; 4:Generalized weakness; 5:Diabetes; 6:Pure hypercholesterolemi a; 7:Class 3 severe obesity with serious comorbidity in adult; 8:Coronary artery disease; 9:On deep vein thrombosis (DVT) prophylaxis Normal [facility] ED Patient Education Noteon 02-26-2024 ED Patient Education Note ED Patient Education Note Normal [facility] ED Patient Summaryon ED Patient Summary ED Patient Summary [address] [address] Patient Discharge Instructions Person Information Name: LEXI TATUM Age: 78 Years Arrival Date: 02/26/2024 17:28:58 Discharge Diagnosis: 1:Sepsis; 2:Urinary tract infection; 3:Acute kidney injury; 4:Generalized weakness; 5:Diabetes; 6:Pure hypercholesterolemi a; 7:Class 3 severe obesity with serious comorbidity in adult; 8:Coronary artery disease; 9:On deep vein thrombosis (DVT) prophylaxis Primary Care Physician: STEFAN BEST MD Provider Information Primary Provider: [employer] Turner Machine Operator:Rudy Gupta PA-C The exam and treatment you received in the Emergency Department were for an urgent problem and are not intended as complete care. It is important that you follow up with a doctor, nurse practitioner, or physician?s assistant tennis professional for ongoing care. If your symptoms become [...] opioids can be used to help relieve fxqplorr-fw-mzhkdy pain and are often prescribed following a [...] be struggling with addiction, tell your health day care supervisor and ask fo (more content not included)... Normal [facility] HEMATOLOGYOrdered By: SYSTEM SYSTEM on 02-26-2024 Basophils/100 [...] Lactic Acid Lvl 0.6 mmol/L Normal 0.5-2.2 [facility] Comment on above: Performed By: #### 2 [id number] #### [facility] [address] [place] [address] No Panel InformationOrdered By: [facility] MICROBIOLOG[facility] on 02-26-2024 Blood Culture Charcoal No growth at 3 days. Final to follow at 7 days. [facility] PT & PTTon 02-26-2024 aPTT Coag (PPP) [Time] 30.9 second(s) Normal 25.1-36.5 [facility] Comment on above: Result Comment: Para meter [...] the same coagulation reagent and instrumentation as [facility]. Currently there are no coagulation studies available worldwide for children to 14 days, and no normal ranges. Heparin therapeutic range (represented by Anti-Factor Xa activity of 0.2 - 0.4 U/mL) corresponds to PTT of 56.6 - 109.0 sec. Performed By: #### 1 [id number] #### [facility] [address] [place] [address] INR Coag (PPP) [Relative time] 1.07 {INR} Invalid Interpretation Code [facility] Comment on above: Result Comment: INR results are specifically intended to assess patients stabilized on long-term Anticoagulation therapy suggested INR?s ?Less Intensive Anticoagulation? 2.0 ? 3.0 Conventional Range 3.0 ? 4.5 Performed By: #### 1 [id number] #### [facility] [address] [place] [address] PT Coag (PPP) [Time] 12.0 second(s) Normal 9.4-12.5 [facility] Comment on above: Result Comment: 15 d [...] the same coagulation reagent and instrumentation as [facility]. Currently there are no coagulation studies available worldwide for children to 14 days, and no normal ranges. Performed By: #### 1 [id number] #### [facility] [address] [place] [address] Troponin 0 Hr.on 02-26-2024 Troponin HS 74.90 pg/mL Abnormal 10.10-27.10 [facility] Comment on above: Result Comment: Crit ical Result Verified by Repeat Analysis Critical Result I_TnIHS:74.9 Called to and read back by: RUDY PATRICK RN at: 02/26/2024 18:18:39 by:[facility] The 95% CI (Confidence Interval) PPV (Positive Predictive Value) for myocardial infarction in females is 38 pg/mL, in males 51 pg/mL. The results should be used in conjunction with clinical conditions of myocardial infarction. (Access High Sensitivity Troponin I Instructions For Use, [employer], February 2018) Performed By: #### 1 [id number] #### [facility] [address] [place] [address] Troponin 1 Hr.on 02-26-2024 Troponin HS 70.30 pg/mL Abnormal 10.10-27.10 [facility] Comment on above: Order Comment: 1830 Result Comment: Crit ical Result Verified by Previous Result The 95% CI (Confidence Interval) PPV (Positive Predictive Value) for myocardial infarction in females is 38 pg/mL, in males 51 pg/mL. The results should be used in conjunction with clinical conditions of myocardial infarction. (Access High Sensitivity Troponin I Instructions For Use, [employer], February 2018) Performed By: #### 1 [id number] #### [facility] [address] [place] [address] Troponin 3 Hr.on 02-26-2024 Troponin HS 59.70 pg/mL Abnormal 10.10-27.10 [facility] Comment on above: Result Comment: Crit ical Result Verified by Previous Result Critical Result I_TnIHS:59.7 Called to and read back by: AMANDA PRESLEY at: 02/26/2024 21:24:01 by:[id number] The 95% CI (Confidence Interval) PPV (Positive Predictive Value) for myocardial infarction in females is 38 pg/mL, in males 51 pg/mL. The results should be used in conjunction with clinical conditions of myocardial infarction. (Access High Sensitivity Troponin I Instructions For Use, [employer], February 2018) Performed By: #### 1 [id number] #### [facility] [address] [place] [address] UA with Cult Rflxon 02-26-20 24 Type of Urine collection method Random Urine Normal [facility] Comment on above: Performed By: #### 4 [id number] #### [facility] [address] [place] [address] Type of Urine collection method Clean Catch Normal [facility] Comment on above: Performed By: #### 4 [id number] #### [facility] [address] [place] [address] eGFRon 02-26-2024 eGFR 28 mL/min/1.73 m2 Low >=59 [facility] Comment on above: Order Comment: Order added by Discern Expert. Performed By: #### 1 [id number] #### [facility] [address] [place] [address] Ambulatory Visit Summaryon 0 02-10-2024 Ambulatory Visit [...] with DELGADO MARLOW, PATO Nye When: Where: [address] [place] [id number]- Medications What How Much When Why [...] Urinary in (more content not included)... Normal [facility] Office/Clinic Noteon 02-10-2024 Urology Office/Clinic Note Urology Office/Clinic Note Chief Complaint follow up HPI Staff Lexi is a 78 y.o. female here for [facility] ER follow up stent placement [...] female new pt here for f/u to [facility] consult. 1. 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 AP wo con 01/22/24 [facility] - Bilateral hydronephrosis and hydroureter [...] options including referral to the [facility] for consideration of ureterolysis. She is not [...] try to get a hold of her surgery teacher Dr. Ashby. GFR was around 28 at last [facility] (more content not included)... Normal [facility] Comment on above: Result Comment: Elec tronically Signed By: DELGADO MARLOW, Yaniv Mcarthur.mane\Date and Time Signed: 02/10/24 16:40 EDT Basophils Auto (Bld) [#/Vol] Ordered By: Norberto Pires on 01-25-2024 Basophils (Bld) [#/Vol] 0.0 10*3/uL 0.0-0.2 [facility] Basophils/100 WBC Auto (Bld) Ordered By: Norberto Pires on 01-25-2024 Basophils/100 WBC (Bld) 0.5 % . [facility] Calcium [Mass/volume] in Ser um or PlasmaOrdered By: Norberto Pires on 01-25-2024 Calcium [Mass/Vol] 8.6 mg/dL 8.6-10.3 [facility] Carbon dioxide, total [Moles /volume] in Serum or PlasmaOrdered By: Norberto Pires on 01-25-2024 CO2 [Moles/Vol] 27.5 mmol/L 21.0-31.0 [facility] Chloride [Moles/volume] in [place] or PlasmaOrdered By: Norberto Pires on 01-25-2024 Chloride [Moles/Vol] 106 mmol/L 98-107 [facility] Creatinine [Mass/volume] in Serum or PlasmaOrdered By: Norberto Pires on 01-25-2024 Creatinine [Mass/Vol] 1.80 mg/dL High 0.60-1.20 [facility] Eosinophils Auto (Bld) [#/Vo l]Ordered By: Norberto Pires on 01-25-2024 Eosinophils (Bld) [#/Vol] 0.3 10*3/uL 0.0-0.45 [facility] Eosinophils/100 WBC Auto (Bl d)Ordered By: Norberto Pires on 01-25-2024 Eosinophils/100 WBC (Bld) 3.2 % . [facility] Erythrocyte distribution wid th Auto (RBC) [Ratio]Ordered By: Norberto Pires on 01-25-2024 Erythrocyte distribution width (RBC) [Ratio] 17.3 % High 11.9-15.3 [facility] Glucose Glucometer (BldC) [M ass/Vol]Ordered By: oNrberto Pires on 01-25-2024 Glucose [Mass/Vol] 149 mg/dL [facility] Comment on above: Random Glucose Refer ence Range is dependent on time and content of last meal. Glucose of more than 200 mg/dL in a nonstressed, ambulatory subject supports the diagnosis of Diabetes Mellitus. Glucose [Mass/volume] in Ser um or PlasmaOrdered By: Norberto Pires on 01-25-2024 Glucose [Mass/Vol] 75 mg/dL 70-100 [facility] Comment on above: ADA recommended refe rence rangeRandom Glucose Reference Range is dependent on time and content of last meal. Glucose of more than 200 mg/dL in a nonstressed, ambulatory subject supports the diagnosis of Diabetes Mellitus. Hematocrit Auto (Bld) [Volum e fraction]Ordered By: Norberto Pires on 01-25-2024 Hematocrit (Bld) [Volume fraction] 30.5 % Low 34.0-46.4 [facility] Hemoglobin [Mass/volume] in BloodOrdered By: Norberto Pires on 01-25-2024 Hemoglobin (Bld) [Mass/Vol] 9.8 g/dL Low 11.8-15.4 [facility] Leukocytes [#/volume] correc suzi for nucleated erythrocytes in Blood by Automated counOrdered By: Norberto Pires on 01-25-2024 WBC corrected for nucl RBC Auto (Bld) [#/Vol] 8.3 10*3/uL 3.8-11.6 [facility] Lymphocytes Auto (Bld) [#/Vo l]Ordered By: Norberto Pires on 01-25-2024 Lymphocytes (Bld) [#/Vol] 1.9 10*3/uL 1.00-4.8 [facility] Lymphocytes/100 WBC Auto (Bl d)Ordered By: Norberto Pires on 01-25-2024 Lymphocytes/100 WBC (Bld) 22.6 % . [facility] MCH Auto (RBC) [Entitic mass ]Ordered By: Norberto Pires on 01-25-2024 MCH (RBC) [Entitic mass] 32.7 pg 24.7-34.3 [facility] MCHC Auto (RBC) [Mass/Vol]Or dered By: Norberto Pires on 01-25-2024 MCHC (RBC) [Mass/Vol] 32.1 g/dL 32.0-35.0 [facility] MCV Auto (RBC) [Entitic vol] Ordered By: Norberto Pires on 01-25-2024 MCV (RBC) [Entitic vol] 101.8 fL High 80-100 [facility] Monocytes Auto (Bld) [#/Vol] Ordered By: Norberto Pires on 01-25-2024 Monocytes (Bld) [#/Vol] 0.8 10*3/uL 0.0-0.8 [facility] Monocytes/100 WBC Auto (Bld) Ordered By: Norberto Pires on 01-25-2024 Monocytes/100 WBC (Bld) 9.1 % . [facility] Neutrophils Auto (Bld) [#/Vo l]Ordered By: Norberto Pires on 01-25-2024 Neutrophils (Bld) [#/Vol] 5.4 10*3/uL 1.8-7.7 [facility] Neutrophils/100 WBC Auto (Bl d)Ordered By: Norberto Pires on 01-25-2024 Neutrophils/100 WBC (Bld) 64.6 % . [facility] No Panel InformationOrdered By: Norberto Pires on 01-25-2024 Estimated GFR (CKD-EPI) 28.482 mL/Min [facility] Creatinine Clearance (Chem 24.11 [facility] Nucleated erythrocytes [Pres ence] in Blood by Automated countOrdered By: Norberto Pires on 01-25-2024 Nucleated RBC Auto Ql (Bld) 0.1 /100{WBC} 0-0.5 [facility] Platelet mean volume Auto (B ld) [Entitic vol]Ordered By: Norberto Pires on 01-25-2024 Platelet mean volume (Bld) [Entitic vol] 9.1 fL 6.3-10.7 [facility] Platelets Auto (Bld) [#/Vol] Ordered By: Norberto Pires on 01-25-2024 Platelets (Bld) [#/Vol] 202 10*3/uL 150-450 [facility] Potassium [Moles/volume] in Serum or PlasmaOrdered By: Norberto Pires on 01-25-2024 Potassium [Moles/Vol] 3.6 mmol/L 3.5-5.1 [facility] RBC Auto (Bld) [#/Vol]Ordere d By: Norberto Pires on 01-25-2024 RBC (Bld) [#/Vol] 3.00 10*6/uL Low 3.60-5.00 [facility] Serum or plasma anion gap de terminationOrdered By: Norberto Pires on 01-25-2024 Anion gap [Moles/Vol] 10.1 mmol/L 6.0-15.0 [facility] Sodium [Moles/volume] in Ser um or PlasmaOrdered By: Norberto Pires on 01-25-2024 Sodium [Moles/Vol] 140 mmol/L 136-145 [facility] Urea nitrogen [Mass/volume] in Serum or PlasmaOrdered By: Norberto Pires on 01-25-2024 Urea nitrogen [Mass/Vol] 25 mg/dL 7-25 [facility] WBC Auto (Bld) [#/Vol]Ordere d By: Norberto Pires on 01-25-2024 WBC (Bld) [#/Vol] 8.3 10*3/uL 3.8-11.6 [facility] Alanine aminotransferase [En zymatic activity/volume] in Serum or PlasmaOrdered By: Norberto Pires on 01-24-2024 ALT [Catalytic activity/Vol] 3 U/L Low 7-52 [facility] Albumin [Mass/volume] in Ser um or Plasma by Bromocresol green (BCG) dye binding methoOrdered By: Norberto Pires on 01-24-2024 Albumin BCG dye [Mass/Vol] 3.2 g/dL Low 3.5-5.7 [facility] Alkaline phosphatase [Enzyma tic activity/volume] in Serum or PlasmaOrdered By: Norberto Pires on 01-24-2024 ALP [Catalytic activity/Vol] 49 U/L 34-104 [facility] Aspartate aminotransferase [ Enzymatic activity/volume] in Serum or PlasmaOrdered By: Norberto Pires on 01-24-2024 AST [Catalytic activity/Vol] 10 U/L Low 13-39 [facility] Bilirubin.total [Mass/volume ] in Serum or PlasmaOrdered By: Norberto Pires on 01-24-2024 Bilirubin [Mass/Vol] 0.2 mg/dL Low 0.3-1.0 [facility] Globulin Calc (S) [Mass/Vol] Ordered By: Norberto Pires on 01-24-2024 Globulin (S) [Mass/Vol] 3.0 g/dL [facility] No Panel InformationOrdered By: Norberto Pires on 01-24-2024 Bedside Glucose Comment Glu2: cleaned meter [facility] Protein [Mass/volume] in Ser um or PlasmaOrdered By: Norberto Pires on 01-24-2024 Protein [Mass/Vol] 6.2 g/dL Low 6.4-8.9 [facility] Serum or plasma albumin/glob ulin mass ratioOrdered By: Norberto Pires on 01-24-2024 Albumin/Globulin [Mass ratio] 1.1 {ratio} [facility] Activated partial thrombopla stin time (aPTT) in platelet poor plasma by coagulation aOrdered By: Norberto Pires on 01-23-2024 aPTT Coag (PPP) [Time] 30.7 s 25.1-36.5 [facility] Comment on above: A hematocrit value g reater than 55% may lead to inaccurate results in coagulation testing. Patients having hematocrit values >55% require a special collection tube for coagulation studies. Please contact the laboratory at [phone] for redraw instructions. Creatine kinase [Enzymatic a ctivity/volume] in Serum or PlasmaOrdered By: Norberto Pires on 01-23-2024 CK [Catalytic activity/Vol] 30 U/L 30-223 [facility] Creatine kinase.MB [Mass/vol ume] in Serum or PlasmaOrdered By: Norberto Pires on 01-23-2024 CK.MB [Mass/Vol] 2.3 ng/mL 0.6-6.3 [facility] INR in Platelet poor plasma by Coagulation assayOrdered By: Norberto Pires on 01-23-2024 INR Coag (PPP) [Relative time] 0.9 {INR} [facility] Comment on above: INR Therapeutic Rang [...] PT Coag (PPP) [Time] 11.0 s 9.0-12.9 [facility] Comment on above: A hematocrit value g reater than 55% may lead to inaccurate results in coagulation testing. Patients having hematocrit values >55% require a special collection tube for coagulation studies. Please contact the laboratory at [phone] for redraw instructions. Serum or plasma creatine kin ase MB (CKMB)/total creatine kinase (CK) ratio by calculaOrdered By: Norberto Pires on 01-23-2024 CK.MB Calc [Catalytic fraction] 7.6 % High 0.00-2.50 [facility] Troponin I.cardiac [Mass/vol ume] in Serum or Plasma by Detection limit <= 0.01 ng/Ordered By: Norberto Pires on 01-23-2024 Troponin I.cardiac DL <= 0.01 ng/mL [Mass/Vol] 20.7 pg/mL High 0.0-15.0 [facility] Bacteria [Presence] in Urine by AutomatedOrdered By: Christen Oshea on 01-22-2024 Bacteria Auto Ql (U) Rare [HPF] None Seen [facility] Bilirubin Test strip Ql (U)O rdered By: Christen Oshea on 01-22-2024 Bilirubin Ql (U) Negative Negative [facility] Color Auto (U)Ordered By: Saira Oshea on 01-22-2024 Color (U) Colorless Yellow [facility] Epithelial cells.squamous [# /area] in Urine sediment by Automated countOrdered By: Christen Oshea on 01-22-2024 Epithelial cells.squamous Auto (Urine sed) [#/Area] 1-2 [HPF] 0-2 [facility] Erythrocytes [#/area] in Uri ne sediment by Automated countOrdered By: Christen Oshea on 01-22-2024 RBC Auto (Urine sed) [#/Area] 1-2 [HPF] 0-4 [facility] Glucose [Mass/volume] in Uri ne by Test stripOrdered By: Christen Oshea on 01-22-2024 Glucose Test strip (U) [Mass/Vol] Normal mg/dL Normal [facility] Hemoglobin Test strip Ql (U) Ordered By: Christen Oshea on 01-22-2024 Hemoglobin Ql (U) Negative Negative [facility] Hyaline casts [#/area] in Ur ine sediment by Automated countOrdered By: Christen Oshea on 01-22-2024 Hyaline casts Auto (Urine sed) [#/Area] 0-8 [LPF] 0-8 [facility] Ketones Test strip Ql (U)Ord ered By: Christen Oshea on 01-22-2024 Ketones Ql (U) Negative Negative [facility] Leukocyte clumps [Presence] in Urine by AutomatedOrdered By: Christen Oshea on 01-22-2024 Leukocyte clumps Auto Ql (U) Occasional [LPF] High None Seen [facility] Leukocyte esterase [Presence ] in Urine by Test stripOrdered By: Christen Oshea on 01-22-2024 Leukocyte esterase Test strip Ql (U) 1+ High Negative [facility] Leukocytes [#/area] in Urine sediment by Automated countOrdered By: Christen Oshea on 01-22-2024 WBC Auto (Urine sed) [#/Area] 5-9 [HPF] High 0-4 [facility] Monocyte distribution width [Entitic volume] in Blood by AutomatedOrdered By: Christen Oshea on 01-22-2024 Monocyte distribution width Auto (Bld) [Entitic vol] 19.69 % 0.00-20.00 [facility] Nitrite Test strip Ql (U)Ord ered By: Christen Oshea on 01-22-2024 Nitrite Ql (U) Negative Negative [facility] Protein Test strip (U) [Mass /Vol]Ordered By: Christen Oshea on 01-22-2024 Protein (U) [Mass/Vol] 50 mg/dL High Negative [facility] Specific gravity Test strip (U) [Rel density]Ordered By: Christen Oshea on 01-22-2024 Specific gravity (U) [Rel density] 1.010 1.001-1.030 [facility] Urine appearanceOrdered By: Christen Oshea on 01-22-2024 Appearance (U) Cloudy Abnormal Clear [facility] Urine culture routineOrdered By: Christen Oshea on 01-22-2024 Bacteria identified Cx Nom (U) [facility] Urobilinogen Test strip (U) [Mass/Vol]Ordered By: Christen Oshea on 01-22-2024 Urobilinogen (U) [Mass/Vol] Normal mg/dL Normal [facility] pH Test strip (U)Ordered By: Christen Oshea on 01-22-2024 pH (U) 7.0 [pH] 5.0-9.0 [facility] Home Health Recordson 2023 Home Health Records [id number] 5#1.00TIFF Normal [facility] Records [id number] F2#1.00TIFF Normal [facility] Basophils Auto (Bld) [#/Vol] on 12-06-2023 Basophils (Bld) [#/Vol] 0.0 10 3/uL 0.0-0.1 [facility] Basophils/100 WBC Auto (Bld) on 12-06-2023 Basophils/100 WBC (Bld) 0.3 % 0.2-2.0 [facility] Eosinophils/100 WBC Auto (Bl d)on 12-06-2023 Eosinophils/100 WBC (Bld) 2.9 % 0.9-7.0 [facility] Erythrocyte distribution wid th Auto (RBC) [Ratio]on 12-06-2023 Erythrocyte distribution width (RBC) [Ratio] 16.4 % High 11.0-15.0 [facility] Estimated glomerular filtrat ion rate (GFR) non- Americanon 12-06-2023 GFR/1.73 sq M.predicted among non-blacks MDRD (S/P/Bld) [Vol rate/Area] 20 mL/min/{1.73_m2} Low >=60 [facility] Globulin Calc (S) [Mass/Vol] on 12-06-2023 Globulin (S) [Mass/Vol] 4.3 g/dL [facility] Hematocrit Auto (Bld) [Volum e fraction]on 12-06-2023 Hematocrit (Bld) [Volume fraction] 31.8 % Low 36.0-48.0 [facility] Hemoglobin [Mass/volume] in Bloodon 12-06-2023 Hemoglobin (Bld) [Mass/Vol] 9.5 g/dL Low 12.0-16.0 [facility] Laboratory - Chemistry and C hemistry - challengeon 12-06-2023 Albumin [Mass/Vol] 2.8 g/dL Low 3.4-5.0 [facility] ALP [Catalytic activity/Vol] 55 U/L 46-116 [facility] ALT [Catalytic activity/Vol] 11 U/L Low 14-59 [facility] AST [Catalytic activity/Vol] 8 U/L Low 15-37 [facility] Bilirubin [Mass/Vol] 0.4 mg/dL 0.2-1.0 [facility] Calcium [Mass/Vol] 9.0 mg/dL 8.5-10.1 [facility] Chloride [Moles/Vol] 100 mmol/L 98-107 [facility] CO2 [Moles/Vol] 29.7 mmol/L 21.0-32.0 [facility] Cobalamin (Vitamin B12) [Mass/Vol] 380 pg/mL 232-1245 [facility] Comment on above: Performed at: - [address] [id number] Director: Mohan Talbert PhD, Phone: [phone] Creatinine [Mass/Vol] 2.33 mg/dL High 0.55-1.02 [facility] Ferritin [Mass/Vol] 76.0 ng/mL 8.0-252.0 [facility] GFR/1.73 sq M.predicted MDRD (S/P/Bld) [Vol rate/Area] 24 mL/min/{1.73_m2} Low >=60 [facility] Glucose [Mass/Vol] 111 mg/dL High 74-106 [facility] LDH [Catalytic activity/Vol] 149 U/L 81-234 [facility] Potassium [Moles/Vol] 4.4 mmol/L 3.5-5.1 [facility] Protein [Mass/Vol] 7.1 g/dL 6.4-8.2 [facility] Sodium [Moles/Vol] 137 mmol/L 136-145 [facility] Urea nitrogen [Mass/Vol] 45.0 mg/dL High 7.0-18.0 [facility] Urea nitrogen/Creatinine [Mass ratio] 19.3 mg/mg [facility] Laboratory - Hematology and Cell countson 12-06-2023 Immature granulocytes/100 WBC (Bld) 0.3 % 0.0-0.5 [facility] Leukocytes [#/volume] correc suzi for nucleated erythrocytes in Blood by Automated counon 12-06-2023 WBC corrected for nucl RBC Auto (Bld) [#/Vol] 12.3 10 3/uL High 4.0-11.0 [facility] Lymphocytes Auto (Bld) [#/Vo l]on 12-06-2023 Lymphocytes (Bld) [#/Vol] 1.7 10 3/uL 1.2-3.8 [facility] Lymphocytes/100 WBC Auto (Bl d)on 12-06-2023 Lymphocytes/100 WBC (Bld) 13.7 % Low 20.5-60.0 [facility] MCH Auto (RBC) [Entitic mass ]on 12-06-2023 MCH (RBC) [Entitic mass] 31.0 pg 26.7-34.0 [facility] MCHC Auto (RBC) [Mass/Vol]on 12-06-2023 MCHC (RBC) [Mass/Vol] 29.9 g/dL 29.9-35.2 [facility] MCV Auto (RBC) [Entitic vol] on 12-06-2023 MCV (RBC) [Entitic vol] 103.9 fL High 81.0-99.0 [facility] Monocytes Auto (Bld) [#/Vol] on 12-06-2023 Monocytes (Bld) [#/Vol] 0.8 10 3/uL 0.3-0.8 [facility] Monocytes/100 WBC Auto (Bld) on 12-06-2023 Monocytes/100 WBC (Bld) 6.2 % 1.7-12.0 [facility] Neutrophils Auto (Bld) [#/Vo l]on 12-06-2023 Neutrophils (Bld) [#/Vol] 9.4 10 3/uL High 1.4-6.5 [facility] Neutrophils/100 WBC Auto (Bl d)on 12-06-2023 Neutrophils/100 WBC (Bld) 76.6 % High 43.0-75.0 [facility] No Panel Informationon 12-05 Eosinophils # (Auto) 0.4 10 3/uL 0.0-0.7 [facility] Folate 8.2 ng/mL >3.0 [facility] Comment on above: A serum folate oniel ntration of less than 3.1 ng/mL isconsidered to represent clinical deficiency.Performed at: - [facility] [id number] Director: Mohan Talbert PhD, Phone: [phone] Immature Granulocyte # (Auto) 0.04 10 3/uL High 0.00-0.03 [facility] Platelet mean volume Auto (B ld) [Entitic vol]on 12-06-2023 Platelet mean volume (Bld) [Entitic vol] 11.5 fL 9.5-13.5 [facility] Platelets Auto (Bld) [#/Vol] on 12-06-2023 Platelets (Bld) [#/Vol] 209 10 3/uL 150-450 [facility] RBC Auto (Bld) [#/Vol]on RBC (Bld) [#/Vol] 3.06 10 6/uL Low 4.20-5.40 [facility] Reticulocytes/100 RBC Auto ( Bld)on 12-06-2023 Reticulocytes/100 RBC (Bld) 2.59 % 0.60-3.10 [facility] Serum or plasma albumin/glob ulin mass ratioon 12-06-2023 Albumin/Globulin [Mass ratio] 0.7 {ratio} [facility] Serum or plasma anion gap de terminationon 12-06-2023 Anion gap [Moles/Vol] 11.7 mmol/L [facility] Albumin [Mass/volume] in Ser um or Plasma by Bromocresol green (BCG) dye binding methoOrdered By: Da Lozano on 12-02-2023 Albumin BCG dye [Mass/Vol] 3.7 g/dL 3.5-5.7 [facility] Cotinine [Mass/volume] in Se rum or PlasmaOrdered By: Da Lozano on 12-02-2023 Cotinine [Mass/Vol] <1.0 ng/mL . [facility] Comment on above: This test was develo ped and its performance characteristicsdetermined by [facility]. It has not been cleared orapproved by the Food and Drug Administration.Cotinine levels greater than 20.0 are consistent with theuse of tobacco or tobacco cessation products.Performed at: [facility] [id number] Director: Navneet Carcamo MD, Phone: [phone] Glucose mean value [Mass/vol ume] in Blood Estimated from glycated hemoglobinOrdered By: Da Lozano on 12-02-2023 Average glucose Estimated from glycated hemoglobin (Bld) [Mass/Vol] 166 mg/dL [facility] Hemoglobin A1c percentageOrd ered By: Da Lozano on 12-02-2023 HbA1c (Bld) [Mass fraction] 7.4 % High 4.3-5.6 [facility] Comment on above: Increased risk for d iabetes: 5.7 - 6.4diabetes: >6.4glycemic control for adults with diabetes: <7.0 Hemoglobin [Mass/volume] in BloodOrdered By: Da Lozano on 12-02-2023 Hemoglobin (Bld) [Mass/Vol] 10.3 g/dL Low 11.8-15.4 [facility] Nicotine [Mass/volume] in Se rum or PlasmaOrdered By: Da Lozano on 12-02-2023 Nicotine [Mass/Vol] <1.0 ng/mL . [facility] Comment on above: This test was develo ped and its performance characteristicsdetermined by [facility]. It has not been cleared orapproved by the Food and Drug Administration.Nicotine levels greater than 2.0 are consistent with theuse of tobacco or tobacco cessation products. Vitamin D+Metabolites [Mass/ volume] in Serum or PlasmaOrdered By: Da Lozano on 12-02-2023 Vitamin D+Metabolites [Mass/Vol] 91.9 ng/mL 30-100 [facility] Comment on above: VITAMIN D STATUS [...] (Unsp spec) No MRSA Isolated 2 Days [facility] Glucose mean value [Mass/vol ume] in Blood Estimated from glycated hemoglobinon 11-22-2023 Average glucose Estimated from glycated hemoglobin (Bld) [Mass/Vol] 160 mg/dL [facility] Laboratory - Hematology and Cell countson 11-22-2023 HbA1c (Bld) [Mass fraction] 7.2 % High 4.5-6.2 [facility] Comment on above: ADA RECOMMENDED LIMI T 4.0 - 6.0ADA THERAPEUTIC TARGET < 7.0ACTION SUGGESTED> 7.0 Laboratory - Chemistry and C hemistry - challengeon 10-23-2023 Bilirubin Ql (U) Negative [facility] Glucose (U) [Mass/Vol] Negative [facility] Ketones Ql (U) Negative [facility] pH (U) 5 [pH] [facility] Specific gravity (U) [Rel density] 1.000 [facility] Urobilinogen (U) [Mass/Vol] 0.2 mg/dL [facility] Laboratory - Specimen inform ationon 10-23-2023 Appearance (U) Cloudy [facility] Color (U) Yellow [facility] Laboratory - Urinalysison Leukocyte esterase Test strip Ql (U) +++ [facility] Nitrite Ql (U) Negative [facility] Protein Ql (U) Negative [facility] No Panel Informationon 10-22 Urine Occult Blood Negative [facility] Home Health Recordson 2023 Home Health Records [id number] 3C#1.00TIFF Normal [facility] Perfusion W stress and W radionuclide [place] 10-14-2023 Abnormal Lexiscan Myoview cardiac perfusion stress test. No myocardial ischemia by perfusion imaging. No myocardial infarction by perfusion imaging. Abnormal left ventricular systolic function with mild global hypokinesis. Left ventricular ejection fraction 48 %. No previous studies are available for comparison. Signed by: Charlotte Cordon 10/14/2023 4:27 PM Dictation workstation: [id number] Interpreted By: Charlotte Cordon, and Omar Hernandez STUDY: MYOCARDIAL PERFUSION STRESS TEST WITH LEXISCAN Performing facility: [facility], [address] [place] [address], [address], [address] Provider: Joey Morales MD, FACC PCP: Dr. Marsha Best Supervising provider: Joey Cobb DO, [facility] INDICATION: CAD; CABG ICM SOB; HISTORY: Gender: F; Age: 78 y/o ; Height: HT 149.9 cm cm; Weight: WT 74.844 kg kg. High Cholesterol; CAD; Diabetes; Previous [place]; HTN; SOB; Quit smoking 27 years ago. Cardiac catheterization on 2017. PTCA on 2017. CABG on 2017. COMPARISON: No comparison. ACCESSION NUMBER(S): [id number] ORDERING CLINICIAN: SHAHRZAD MORALES TECHNIQUE: ONE DAY [...] TEST WITH LEXISCAN Performing facility: [facility], [address] [place] [address], [address], [place] [address] [facility] Provider: Joey Morales MD, [facility] PCP: Dr. Marsha Best Supervising provider: Joey Cobb DO, [facility] INDICATION: CAD; CABG ICM SOB; HISTORY: Gender: F; Age: 78 y/o ; Height: HT 149.9 cm cm; Weight: WT 74.844 kg kg. High Cholesterol; CAD; Diabetes; Previous [place]; HTN; SOB; Quit smoking 27 years ago. Cardiac catheterization on 2017. PTCA on 2016. CABG on 2017. COMPARISON: No comparison. ACCESSION NUMBER(S): [id number] ORDERING CLINICIAN: SHAHRZAD MORALES TECHNIQUE: ONE DAY [...] Charlotte Cordon 10/14/2023 4:27 PM Dictation workstation: [id number] [facility] Work Phone: Radiology Study observation (narrative) [facility] Work Phone: [facility] Heart Perfusion W stress and W radionuclide IVOrdered By: Charlotte Cordon on 10-14-2023 [facility] Work Phone: NUCLEAR STRESS TESTon 2023 NUCLEAR STRESS TEST Interpreted By: Charlotte Cordon and Giannuzzi Michael STUDY: MYOCARDIAL PERFUSION STRESS TEST WITH LEXISCAN Performing facility: [facility], [address] [place] [address], [address], [address] Provider: Joey Morales MD, [facility] PCP: Dr. Marsha Best Supervising provider: Joey Cobb DO, [facility] INDICATION: CAD; CABG ICM SOB; HISTORY: Gender: F; Age: 78 y/o ; Height: HT 149.9 cm cm; Weight: WT 74.844 kg kg. High Cholesterol; CAD; Diabetes; Previous WA; HTN; SOB; Quit smoking 27 years ago. Cardiac catheterization on 2017. PTCA on 2017. CABG on 2017. COMPARISON: No comparison. ACCESSION NUMBER(S): [id number] ORDERING CLINICIAN: SHAHRZAD MORALES TECHNIQUE: ONE DAY [...] Charlotte Cordon 10/14/2023 4:27 PM Dictation workstation: [id number] [facility] Record[facility] 2023 Home Health Records [id number] 6F#1.00TIFF [facility] Retail - Clinical Noteon Retail - Clinical Note [id number] 52#1.00TIFF [facility] Home Health Recordson 2023 Home Health Records [id number] 42#1.00TIFF [facility] Health Record[facility] 2023 Home Health Records [id number] 2A#1.00TIFF [facility] Home Health Records [id number] BC#1.00TIFF [facility] Home Health Recordson 2023 Home Health Records [id number] DA#1.00TIFF [facility] Record[facility] 2023 Home Health Records [id number] 8E#1.00TIFF [facility] ECG 12-Leadon 09-09-2023 ECG 12-Lead [id number] 37#1.00TIFF Normal [facility] 2023 Home Health Records [id number] A0#1.00TIFF Normal [facility] ED Note-Physicianon 09-01-19 ED Note-Physician [id number] 20#1.00TIFF Normal [facility] RAD - MISCon 09-01-2023 RAD - MISC [id number] 4E#1.00TIFF Normal [facility] Ambulatory Visit Summaryon 0 08-21-2023 Ambulatory Visit [...] Maxine Sanchez This Is Your Medications List [facility] Prescription ([facility] Prescription) acetaminophen (Tylenol) allopurinol (allopurinol 300 [...] 3:40 PM EDT With: Maxine Sanchez Where: [facility] [place] Normal [facility] Medicine Office/Clini c Noteon 08-21-2023 Family Medicine [...] Directives reviewed, patient has on file with [facility]. Patient denies any problems with ADL?s [...] f (more content not included)... Normal [facility] Comment on above: Result Comment: Elec tronically [...] EST, Weight Dosing HgbA1c Lab Specimen Collect [id number] 3. Long-term insulin use (Z79.4: nursing home (current) use of insulin) insulins changed [...] virus vaccine, inactivated 07/03/2022 Recorded SARS-CoV-2 (COVID-19) mRNAMUL.ORD![id number] 06/17/2022 Re (more content not included)... Normal [facility] Comment on above: Result Comment: Elec tronically Signed By: Maxine Sanchez\.br\Date and Time Signed: 08/21/23 08:02 EST Formson 08-21-2023 Forms [id number] 0F#1.00TIFF Normal [facility] WxsJ0ehx 08-21-2023 HbA1c (Bld) [Mass fraction] 8.2 % High <=5.9 [facility] Comment on above: Performed By: #### 7 [id number] #### [facility] [address] [place] [address] Patient Educationon 08-21-19 Patient Education [facility] Fall Prevention in the Home, Adult [...] night-lights. ? Place frequently used items in sztf-xj-chkfm places. Lower the shelves around your home [...] the way. ? Do not use floor turkmen or wax that makes floors slippery. If [...] include working with a physical therapist or resident athletic trainer to improve your strength, balance, and endurance. Where to find more information ? Centers for Disease Control and Prevention, [place]: www.cdc.gov ? National [place] on Aging: www.jasmina.nih.gov Contact a health care [...] ca (more content not included)... Normal [facility] Ambulatory Visit Summaryon 0 08-20-2023 Ambulatory Visit [...] 3:40 PM EDT With: Maxine Sanchez Where: [facility] [place] Normal [facility] Ambulatory Visit Summary LEXI TATUM :1945 Visit [...] you for choosing us for your care. [facility] Pre-Visit Planningon 023 Pre-Visit Planning -- From: Bibiana Walter To: Maxine Sanchez; Sent: 05/20/2023 08:13:06 ROSITA Subject: Pre-Visit Planning Due Date/Time: 05/20/2023 08:13:00 EST Caller Name: LEXI TATUM; Caller Number: Giovanni , M [facility] Maxine. During a pre-visit planning chart [...] feel free to contact me at extension [phone]. Thank you! Bibiana Walter LPN -- From: Maxine Sanchez To: Bibiana Walter; Sent: 05/28/2023 14:06:51 EST Subject: RE: Pre-Visit Planning Caller Name: LEXI TATUM; Caller Number: H , M chronic kidney disease stage 3, unspecified Normal [address] [place] [address] Pre-Visit Planning -- From: Bibiana Walter To: [...] Type 1 diabetes and hypercholesterolemi a Normal [address] [place] [address] Ambulatory Visit Summaryon 1 07-21-2022 Ambulatory Visit Summary LEXI TATUM :1945 Visit Date:05/21/2023 Ambulatory Visit Instructions Your Diagnosis Type 1 diabetes mellitus with hypercholesterolemi a Long-term insulin use Former smoker BMI 40.0-44.9, adult Your Care Team Attending Physician - Maxine Sanchez Primary Care Physician - Maxine Sanchez This Is Your Medications List Misc Prescription ([facility] Prescription) allopurinol (allopurinol 300 mg Tab) [...] 11:00 AM EST With: Maxine Sanchez Where: [facility] [place] Normal [facility] Office/Clini c Noteon 05-21-2023 Family Medicine Office/Clinic [...] 3 months. Ordered: HgbA1c Lab Specimen Collect [id number] 2. Long-term insulin use (Z79.4: nursing home (current) use of insulin) see above Ordered: HgbA1c Lab Specimen Collect [id number] 3. Former smoker (Z87.891: Personal history of [...] virus vaccine, inactivated 07/03/2022 Recorded SARS-CoV-2 (COVID-19) mRNAMUL.ORD![id number] 06/17/2022 Recorded 2023-02-10: TPV75 SARS-CoV-2 (COVID-19) mRNA [...] pneumococcal 13-valent vaccine 10/30/2016 Recorded Normal [facility] Comment on above: Result Comment: Elec tronically Signed By: Maxine Sanchez\.br\Date and Time Signed: 05/21/23 13:14 EST GvaI2res 05-21-2023 HbA1c (Bld) [Mass fraction] 8.7 % High <=5.9 [facility] Comment on above: Performed By: #### 7 [id number] #### [facility] [address] [place] [address] Ambulatory Visit Summaryon 0 03-05-2023 Ambulatory Visit [...] Appointments Friday 1:00 PM EDT With: Where: [address] \.br\ Medications\.br\ What How Much When [...] Vitamin D deficiency\.br\ Wellness examination\.br\ \.br\ [facility] Family Medicine Office/Clini c Noteon 03-05-2023 [...] continue BS log. may consider referral to lace weaver at that visit. 2. Flank pain (R10.9: [...] virus vaccine, inactivated 07/03/2022 Recorded SARS-CoV-2 (COVID-19) mRNAMUL.ORD![id number] 06/17/2022 Recorded 2023-02-10: TPV75 SARS-CoV-2 (COVID-19) mRNA [...] pneumococcal 13-valent vaccine 10/30/2016 Recorded Normal [facility] Comment on above: Result Comment: [...] CAD, multiple vessel (414.00) (I25.10) History of WA (myocardial infarction) (412) (I25.2) Statin intolerance (995.27) [...] - Retrospective Authorization; Done: 25Jul2022 History of WA (myocardial infarction), HTN (hypertension) Renew: Carvedilol 25 [...] History of angioplasty (V45.89) (Z98.62) History of WA (myocardial infarction) (412) (I25.2) HTN (hypertension) (401.9) [...] breath. Gastrointe (more content not included)... Normal [facility] Tobacco Screening.on 023 Adult depression screening assessment No [facility] 250 DO Work Phone: Fall risk assessment a) No falls within the last year [facility] 250 DO Work Phone: Tobacco use status CPHS b) No [facility] 250 DO Work Phone: CBC AUTO DIFFon 01-30-2022 BASO # 0.0 103/ul Normal 0.0-0.1 [facility] Comment on above: Performed By: #### C BC #### [facility] [address] [address] [address] Yarely Roe Basophils/100 WBC (Bld) 0.4 % Normal 0.2-2.0 [facility] Comment on above: Performed By: #### C BC #### [facility] [address] [address] [address] Yarely Roe EO # 0.2 103/ul Normal 0.0-0.7 [facility] Comment on above: Performed By: #### C BC #### [facility] [address] [place] [address] Dr. Yarely oRe Eosinophils/100 WBC (Bld) 2.3 % Normal 0.9-7.0 [facility] Comment on above: Performed By: #### C BC #### [facility] [address] [place] [address] Dr. Yarely Roe Erythrocyte distribution width (RBC) [Ratio] 14.8 % Normal 11.0-15.0 [facility] Comment on above: Performed By: #### C BC #### [facility] [address] [place] [address] Dr. Yarely Roe Hematocrit (Bld) [Volume fraction] 42.0 % Normal 36.0-48.0 [facility] Comment on above: Performed By: #### C BC #### [facility] [address] [place] [address] Dr. Yarely Roe Hemoglobin (Bld) [Mass/Vol] 13.7 g/dL Normal 12.0-16.0 [facility] Comment on above: Performed By: #### C BC #### [facility] [address] [place] [address] Dr. Yarely Roe IG # 0.03 10e3/ul Normal 0.00-0.03 [facility] Comment on above: Performed By: #### C BC #### [facility] [address] [place] [address] Dr. Yarely Roe IG % 0.4 % Normal 0.0-0.5 [facility] Comment on above: Performed By: #### C BC #### [facility] [address] [place] [address] Dr. Yarely Roe LYMPH # 1.7 103/ul Normal 1.2-3.8 [facility] Comment on above: Performed By: #### C BC #### [facility] [address] [place] [address] Dr. Yarely Roe Lymphocytes/100 WBC (Bld) 20.7 % Normal 20.5-60.0 [facility] Comment on above: Performed By: #### C BC #### [facility] [address] [place] [address] Dr. Yarely Roe MANUAL DIFF REQ NO Normal [facility] Comment on above: Performed By: #### C BC #### [facility] [address] [place] [address] Dr. Yarely Roe MCH (RBC) [Entitic mass] 31.9 pg Normal 26.7-34.0 [facility] Comment on above: Performed By: #### C BC #### [facility] [address] [place] [address] Dr. Yarely Roe MCHC (RBC) [Mass/Vol] 32.6 g/dL Normal 29.9-35.2 [facility] Comment on above: Performed By: #### C BC #### [facility] [address] [place] [address] Dr. Yarely Roe MCV (RBC) [Entitic vol] 97.7 fL Normal 81.0-99.0 [facility] Comment on above: Performed By: #### C BC #### [facility] [address] [place] [address] Dr. Yarely Roe MONO # 0.5 103/ul Normal 0.3-0.8 [facility] Comment on above: Performed By: #### C BC #### [facility] [address] [place] [address] Dr. Yarely Roe Monocytes/100 WBC (Bld) 5.9 % Normal 1.7-12.0 [facility] Comment on above: Performed By: #### C BC #### [facility] [address] [place] [address] Dr. Yarely Roe NEUT # 5.7 103/ul Normal 1.4-6.5 [facility] Comment on above: Performed By: #### C BC #### [facility] [address] [address] [address] Yarely Roe Neutrophils/100 WBC (Bld) 70.3 % Normal 43.0-75.0 [facility] Comment on above: Performed By: #### C BC #### [facility] [address] [place] [address] Dr. Yarely Roe Platelet mean volume (Bld) [Entitic vol] 11.0 fL Normal 9.5-13.5 [facility] Comment on above: Performed By: #### C BC #### [facility] [address] [address] [address] Yarely Roe PLT 196 103/ul Normal 150-450 [facility] Comment on above: Performed By: #### C BC #### [facility] [address] [place] [address] Dr. Yarely Roe RBC 4.30 106/ul Normal 4.20-5.40 [facility] Comment on above: Performed By: #### C BC #### [facility] [address] [place] [address] Dr. aYrely Roe WBC 8.1 103/ul Normal 4.0-11.0 [facility] Comment on above: Performed By: #### C BC #### [facility] [address] [place] [address] Dr. Yarely Roe GLYCOHEMOGLOBIN A1Con 2021 ADA RECOMMENDATION SEE BELOW Normal [facility] Comment on above: Result Comment: ADA RECOMMENDED LIMIT 4.0 - 6.0 ADA THERAPEUTIC TARGET < 7.0 ACTION SUGGESTED > 7.0 Performed By: #### A 1C #### [facility] [address] [place] [address] Dr. Yarely Roe Glucose [Mass/Vol] 223 mg/dL Normal [facility] Comment on above: Performed By: #### A 1C #### [facility] [address] [place] [address] Dr. Yarely Roe HbA1c (Bld) [Mass fraction] 9.4 % Critically high 4.5-6.2 [facility] Comment on above: Performed By: #### A 1C #### [facility] [address] [address] [address] Yarely Roe PROF CHEM 8 (BAS METB)on Anion gap [Moles/Vol] 13.4 mmol/L Normal [facility] Comment on above: Performed By: #### B MP #### [facility] [address] [address] [address] Yarely Roe Calcium [Mass/Vol] 9.5 mg/dL Normal 8.5-10.1 [facility] Comment on above: Performed By: #### B MP #### [facility] [address] [address] [address] Yarely Roe Chloride [Moles/Vol] 101 mmol/L Normal 98-107 [facility] Comment on above: Performed By: #### B MP #### [facility] [address] [place] [address] Dr. Yarely Roe CO2 [Moles/Vol] 28.6 mmol/L Normal 21.0-32.0 [facility] Comment on above: Performed By: #### B MP #### [facility] [address] [address] [address] Yarely Roe Creatinine [Mass/Vol] 1.46 mg/dL Critically high 0.55-1.02 [facility] Comment on above: Performed By: #### B MP #### [facility] [address] [address] [address] Yarely Roe EGFR-AF GUAMANIAN 42 mL/min/1.73m2 Critically low >=60 [facility] Comment on above: Performed By: #### B MP #### [facility] [address] [address] [address] Yarely Roe EGFR-NON AF GUAMANIAN 35 mL/min/1.73m2 Critically low >=60 [facility] Comment on above: Performed By: #### B MP #### [facility] [address] [address] [address] Yarely Roe Glucose [Mass/Vol] 288 mg/dL Critically high 74-106 [facility] Comment on above: Performed By: #### B MP #### [facility] [address] [address] [address] Yarely Roe Potassium [Moles/Vol] 4.0 mmol/L Normal 3.5-5.1 [facility] Comment on above: Performed By: #### B MP #### [facility] [address] [address] [address] Yarely Roe Sodium [Moles/Vol] 139 mmol/L Normal 136-145 [facility] Comment on above: Performed By: #### B MP #### [facility] [address] [address] [address] Yarely Roe Urea nitrogen [Mass/Vol] 27.0 mg/dL Critically high 7.0-18.0 [facility] Comment on above: Performed By: #### B MP #### [facility] [address] [place] [address] Dr. Yarely Roe Urea nitrogen/Creatinine [Mass ratio] 18.5 mg/mg Normal [facility] Comment on above: Performed By: #### B MP #### [facility] [address] [address] [address] Yarely Roe PROF CHEM 8 (BAS METB)on Anion gap [Moles/Vol] 11.9 mmol/L Normal [facility] Comment on above: Performed By: #### B MP #### [facility] [address] [address] [address] Yarely Roe Calcium [Mass/Vol] 9.1 mg/dL Normal 8.5-10.1 [facility] Comment on above: Performed By: #### B MP #### [facility] [address] [place] [address] Dr. Yarely Roe Chloride [Moles/Vol] 100 mmol/L Normal 98-107 [facility] Comment on above: Performed By: #### B MP #### [facility] [address] [address] [address] Yarely Roe CO2 [Moles/Vol] 30.8 mmol/L Normal 21.0-32.0 [facility] Comment on above: Performed By: #### B MP #### [facility] [address] [address] [address] Yarely Roe Creatinine [Mass/Vol] 1.27 mg/dL Critically high 0.55-1.02 [facility] Comment on above: Performed By: #### B MP #### [facility] [address] [address] [address] Yarely Roe EGFR-AF GUAMANIAN 50 mL/min/1.73m2 Critically low >=60 [facility] Comment on above: Performed By: #### B MP #### [facility] [address] [address] [address] Yarely Roe EGFR-NON AF GUAMANIAN 41 mL/min/1.73m2 Critically low >=60 [facility] Comment on above: Performed By: #### B MP #### [facility] [address] [address] [address] Yarely Roe Glucose [Mass/Vol] 166 mg/dL Critically high 74-106 [facility] Comment on above: Performed By: #### B MP #### [facility] [address] [address] [address] Yarely Roe Potassium [Moles/Vol] 3.7 mmol/L Normal 3.5-5.1 [facility] Comment on above: Performed By: #### B MP #### [facility] [address] [address] [address] Yarely Roe Sodium [Moles/Vol] 139 mmol/L Normal 136-145 [facility] Comment on above: Performed By: #### B MP #### [facility] [address] [address] [address] Yarely Roe Urea nitrogen [Mass/Vol] 20.0 mg/dL Critically high 7.0-18.0 [facility] Comment on above: Performed By: #### B MP #### [facility] [address] [address] [address] Yarely Roe Urea nitrogen/Creatinine [Mass ratio] 15.7 mg/mg Normal [facility] Comment on above: Performed By: #### B MP #### [facility] [address] [place], [place] [address] Dr. Yarely Roe Office Visit (Cardiology)on 11-02-2021 Follow-up visit Diagnoses/Problems Assessed Hyperlipidemia (272.4) (E78.5) Ischemic cardiomyopathy (414.8) (I25.5) HTN (hypertension) (401.9) (I10) History of WA (myocardial infarction) (412) (I25.2) CAD, multiple vessel [...] Metabolic Panel; Status:Active - Retrospective Authorization; Requested for:[id number]; CAD, multiple vessel, Hyperlipidemia Renew: Rosuvastatin Calcium [...] 2:24:53 PM (more content not included)... Normal [facility] Tobacco Screening.on 022 Adult depression screening assessment No [facility] [employer] DO Work Phone: Fall risk assessment a) No falls within the last year [facility] [employer] 250 DO Work Phone: Tobacco use status CPHS b) No [facility] [employer] 250 DO Work Phone: XR LSPINE MIN [...] Vascular calcifications. Right pelvic vascular stent. IMPRESSION: Dhoa-ci-rolmmojd degenerative changes with minimal anterolisthesis of L4 and L5 Electronically authenticated by: ALISSA RAMIREZ Date: 2021-10-16 07:05 Normal [facility] CBC AUTO DIFFon 10-15-2021 BASO # 0.0 103/ul Normal 0.0-0.1 [facility] Comment on above: Performed By: #### C BC #### [facility] [address] [address] [address] Yarely Roe Basophils/100 WBC (Bld) 0.3 % Normal 0.2-2.0 [facility] Comment on above: Performed By: #### C BC #### [facility] [address] [place] [address] Dr. Yarely Roe EO # 0.3 103/ul Normal 0.0-0.7 [facility] Comment on above: Performed By: #### C BC #### [facility] [address] [place] [address] Dr. Yarely Roe Eosinophils/100 WBC (Bld) 3.4 % Normal 0.9-7.0 [facility] Comment on above: Performed By: #### C BC #### [facility] [address] [place] [address] Dr. Yarely Roe Erythrocyte distribution width (RBC) [Ratio] 15.1 % Critically high 11.0-15.0 [facility] Comment on above: Performed By: #### C BC #### [facility] [address] [place] [address] Dr. Yarely Roe Hematocrit (Bld) [Volume fraction] 42.1 % Normal 36.0-48.0 [facility] Comment on above: Performed By: #### C BC #### [facility] [address] [place] [address] Dr. Yarely Roe Hemoglobin (Bld) [Mass/Vol] 13.5 g/dL Normal 12.0-16.0 [facility] Comment on above: Performed By: #### C BC #### [facility] [address] [place] [address] Dr. Yarely Roe IG # 0.04 10e3/ul Critically high 0.00-0.03 [facility] Comment on above: Performed By: #### C BC #### [facility] [address] [place] [address] Dr. Yarely Roe IG % 0.4 % Normal 0.0-0.5 [facility] Comment on above: Performed By: #### C BC #### [facility] [address] [place] [address] Dr. Yarely Roe LYMPH # 2.1 103/ul Normal 1.2-3.8 [facility] Comment on above: Performed By: #### C BC #### [facility] [address] [place] [address] Dr. Yarely Roe Lymphocytes/100 WBC (Bld) 22.9 % Normal 20.5-60.0 [facility] Comment on above: Performed By: #### C BC #### [facility] [address] [place] [address] Dr. Yarely Roe MANUAL DIFF REQ NO Normal [facility] Comment on above: Performed By: #### C BC #### [facility] [address] [place] [address] Dr. Yarely Roe MCH (RBC) [Entitic mass] 31.5 pg Normal 26.7-34.0 [facility] Comment on above: Performed By: #### C BC #### [facility] [address] [place] [address] Dr. Yarely Roe MCHC (RBC) [Mass/Vol] 32.1 g/dL Normal 29.9-35.2 [facility] Comment on above: Performed By: #### C BC #### [facility] [address] [place] [address] Dr. Yarely Roe MCV (RBC) [Entitic vol] 98.1 fL Normal 81.0-99.0 [facility] Comment on above: Performed By: #### C BC #### [facility] [address] [place] [address] Dr. Yarely Roe MONO # 0.6 103/ul Normal 0.3-0.8 [facility] Comment on above: Performed By: #### C BC #### [facility] [address] [place] [address] Dr. Yarely Roe Monocytes/100 WBC (Bld) 6.1 % Normal 1.7-12.0 The [facility] Comment on above: Performed By: #### C BC #### [facility] [address] [place] [address] Dr. Yarely Roe NEUT # 6.2 103/ul Normal 1.4-6.5 [facility] Comment on above: Performed By: #### C BC #### [facility] [address] [address] [address] Yarely Roe Neutrophils/100 WBC (Bld) 66.9 % Normal 43.0-75.0 [facility] Comment on above: Performed By: #### C BC #### [facility] [address] [address] [address] Yarely Roe Platelet mean volume (Bld) [Entitic vol] 10.9 fL Normal 9.5-13.5 [facility] Comment on above: Performed By: #### C BC #### [facility] [address] [address] [address] Yarely Roe PLT 220 103/ul Normal 150-450 [facility] Comment on above: Performed By: #### C BC #### [facility] [address] [place] [address] Dr. Yarely Roe RBC 4.29 106/ul Normal 4.20-5.40 [facility] Comment on above: Performed By: #### C BC #### [facility] [address] [address] [address] Yarely Roe WBC 9.2 103/ul Normal 4.0-11.0 [facility] Comment on above: Performed By: #### C BC #### [facility] [address] [place] [address] Dr. Yarely Roe GLYCOHEMOGLOBIN A1Con 2021 ADA RECOMMENDATION ADA THERAPEUTIC TARGET 6.0 - 7.0 ACTION SUGGESTED > 7.0 Normal [facility] Comment on above: Performed By: #### A 1C #### [facility] [address] [place] [address] Dr. Yarely Roe Glucose [Mass/Vol] 183 mg/dL Normal [facility] Comment on above: Performed By: #### A 1C #### [facility] [address] [place] [address] Dr. Yarely Roe HbA1c (Bld) [Mass fraction] 8.0 % Critically high <=6.0 [facility] Comment on above: Performed By: #### A 1C #### [facility] [address] [place], [place] [id number] Dr. Yarely Roe PROF 14(COMP METB)on 022 Albumin [Mass/Vol] 3.4 g/dL Normal 3.4-5.0 [facility] Comment on above: Performed By: #### C MP #### [facility] [address] [place] [address] Dr. Yarely Roe Albumin/Globulin [Mass ratio] 0.8 {ratio} Normal [facility] Comment on above: Performed By: #### C MP #### [facility] [address] [place] [address] Dr. Yarely Roe ALP [Catalytic activity/Vol] 59 U/L Normal 46-116 [facility] Comment on above: Performed By: #### C MP #### [facility] [address] [place] [address] Dr. Yarely Roe ALT [Catalytic activity/Vol] 9 U/L Critically low 14-59 [facility] Comment on above: Performed By: #### C MP #### [facility] [address] [place] [address] Dr. Yarely Roe Anion gap [Moles/Vol] 11.3 mmol/L Normal [facility] Comment on above: Performed By: #### C MP #### [facility] [address] [place] [address] Dr. Yarely Roe AST [Catalytic activity/Vol] 15 U/L Normal 15-37 [facility] Comment on above: Performed By: #### C MP #### [facility] [address] [place] [address] Dr. Yarely Roe Bilirubin [Mass/Vol] 0.3 mg/dL Normal 0.2-1.3 [facility] Comment on above: Performed By: #### C MP #### [facility] [address] [place] [address] Dr. Yarely Roe Calcium [Mass/Vol] 9.4 mg/dL Normal 8.5-10.1 [facility] Comment on above: Performed By: #### C MP #### [facility] [address] [place] [address] Dr. Yarely Roe Chloride [Moles/Vol] 97 mmol/L Critically low 98-107 [facility] Comment on above: Performed By: #### C MP #### [facility] [address] [place] [address] Dr. Yarely Roe CO2 [Moles/Vol] 33.0 mmol/L Critically high 22.0-30.0 [facility] Comment on above: Performed By: #### C MP #### [facility] [address] [address] [address] Yarely Roe Creatinine [Mass/Vol] 1.40 mg/dL Critically high 0.52-1.04 [facility] Comment on above: Performed By: #### C MP #### [facility] [address] [place] [address] Dr. Yarely Roe EGFR-AF GUAMANIAN 44 mL/min/1.73m2 Critically low >=60 [facility] Comment on above: Performed By: #### C MP #### [facility] [address] [place] [address] Dr. Yarely Roe EGFR-NON AF GUAMANIAN 37 mL/min/1.73m2 Critically low >=60 [facility] Comment on above: Performed By: #### C MP #### [facility] [address] [place] [address] Dr. Yarely Roe Globulin (S) [Mass/Vol] 4.3 g/dL Normal [facility] Comment on above: Performed By: #### C MP #### [facility] [address] [place] [address] Dr. Yarely Roe Glucose [Mass/Vol] 224 mg/dL Critically high 74-106 [facility] Comment on above: Performed By: #### C MP #### [facility] [address] [place] [address] Dr. Yarely Roe Potassium [Moles/Vol] 3.3 mmol/L Critically low 3.4-5.0 [facility] Comment on above: Performed By: #### C MP #### [facility] [address] [place] [address] Dr. Yarely Roe Protein [Mass/Vol] 7.7 g/dL Normal 6.1-8.2 [facility] Comment on above: Performed By: #### C MP #### [facility] [address] [address] [address] Yarely Roe Sodium [Moles/Vol] 138 mmol/L Normal 137-145 [facility] Comment on above: Performed By: #### C MP #### [facility] [address] [address] [address] Yarely Roe Urea nitrogen [Mass/Vol] 27.0 mg/dL Critically high 7.0-18.0 [facility] Comment on above: Performed By: #### C MP #### [facility] [address] [address] [address] Yarely Roe Urea nitrogen/Creatinine [Mass ratio] 19.3 mg/mg Normal [facility] Comment on above: Performed By: #### C MP #### [facility] [address] [address] [address] Yarely Roe [facility] Carotid Artery Dupl ex Ultrasounon 05-08-2020 [facility] Carotid Artery Duplex Ultrasoun [address], [address] [place] [address] Vascular Lab Report Carotid Artery Duplex Ultrasound Patient Name: LEXI CASTILLO Reading Physician: [id number] Charlotte Cordon MD, [facility] Study Date: 05/08/2020 Referring Physician: [id number] Shahrzad Morales MD MRN/PID: [id number] PCP: Li Lee Accession/Order#: [id number] CC Report to: Date of : 1945 Technologist: Surekha Hartley RD, T Gender: F Technologist 2: Admission Status: Outpatient Location Performed: [facility] Diagnosis/ICD: R09.89-Other specified symptoms and signs involving the circulatory and respiratory systems Indication: Diabetes, Hyperlipidemia, Former Smoker, Vertigo, CAD, CABG, Ischemic Cardiomyopathy, PTCA, [place], Obesity Procedure/CPT: 83932 Cerebrovascular Carotid Duplex scan complete-[id number] CONCLUSIONS: Right Carotid: Findings are consistent with [...] cm/s Right Left ICA/CCA Ratio 2.2 0.9 [id number] Charlotte Cordon MD, FACC Final Normal [facility] HEMOGLOBIN A1Con 06-17-2019 HbA1c (Bld) [Mass fraction] 7.5 % Normal [facility] Comment on above: Result Comment: Diag nosis of Diabetes-Adults Non-Diabetic: < or = 5.6% Increased risk for developing diabetes: 5.7-6.4% Diagnostic of diabetes: > or = 6.5% . Monitoring of Diabetes Age (y) Therapeutic Goal (%) Adults: >18 <7.0 Pediatrics: 13-18 <7.5 7-12 <8.0 0- 6 7.5-8.5 [employer] [place] [employer]. Diabetes Care 33(S1), Jul 2009. Performed By: #### H [facility] #### [facility] [address] [place] [address] HbA1c (Bld) [Mass fraction] 169 MG/DL Normal [facility] Comment on above: Performed By: #### H BA1E #### [facility] [address] [place] [address] Anthony 06-16-2019 AST [Catalytic activity/Vol] 18 U/L Normal 9 - 39 [facility] Comment on above: Order Comment: Desean nt states she had black coffee this a.m. Performed By: #### A ST #### [address] [address] COMPREHENSIVE PANELon 2018 Albumin [Mass/Vol] 4.1 g/dL Normal 3.4 - 5.0 [facility] Comment on above: Performed By: #### C MP #### [address] [address] ALP [Catalytic activity/Vol] 62 U/L Normal 33 - 136 [facility] Comment on above: Performed By: #### C MP #### [address] [address] ALT [Catalytic activity/Vol] 12 U/L Normal 7 - 45 [facility] Comment on above: Result Comment: Yareli ents treated with Sulfasalazine may generate falsely decreased results for ALT. Performed By: #### C MP #### [address] [address] Anion gap [Moles/Vol] 13 mmol/L Normal 10 - 20 [facility] Comment on above: Performed By: #### C MP #### [address] [address] AST [Catalytic activity/Vol] 16 U/L Normal 9 - 39 [facility] Comment on above: Performed By: #### C MP #### [address] [address] Bilirubin [Mass/Vol] 0.5 mg/dL Normal 0.0 - 1.2 [facility] Comment on above: Performed By: #### C MP #### [address] [address] Calcium [Mass/Vol] 9.8 mg/dL Normal 8.6 - 10.3 [facility] Comment on above: Performed By: #### C MP #### [address] [address] Chloride [Moles/Vol] 103 mmol/L Normal 98 - 107 [facility] Comment on above: Performed By: #### C MP #### [address] [address] Creatinine [Mass/Vol] 1.32 mg/dL High 0.50 - 1.05 [facility] Comment on above: Performed By: #### C MP #### [address] [address] GFR- AM. 47 mL/min/1.73m2 Abnormal >60 [facility] Comment on above: Result Comment: CALC ULATIONS OF ESTIMATED GFR ARE PERFORMED USING THE MDRD STUDY EQUATION FOR THE IDMS-TRACEABLE CREATININE METHODS. CLIN CHEM 2007;53:766-72 Performed By: #### C MP #### [address] [address] GFR-NON AM. 39 mL/min/1.73m2 Abnormal >60 [facility] Comment on above: Performed By: #### C MP #### [address] [address] Glucose [Mass/Vol] 115 mg/dL High 74 - 99 [facility] Comment on above: Performed By: #### C MP #### [address] [address] HCO3 (Bld) [Moles/Vol] 25 mmol/L Normal 21 - 32 [facility] Comment on above: Performed By: #### C MP #### [address] [address] Potassium [Moles/Vol] 5.4 mmol/L High 3.5 - 5.3 [facility] Comment on above: Performed By: #### C MP #### [address] [address] Protein [Mass/Vol] 7.5 g/dL Normal 6.4 - 8.2 [facility] Comment on above: Performed By: #### C MP #### [address] [address] Sodium [Moles/Vol] 136 mmol/L Normal 136 - 145 [facility] Comment on above: Performed By: #### C MP #### [address] [address] Urea nitrogen [Mass/Vol] 40 mg/dL High 6 - 23 [facility] Comment on above: Performed By: #### C MP #### [address] [address] LIPID PANEL (CORONARY RISK 2 )on 06-16-2019 Cholesterol [Mass/Vol] 182 mg/dL Normal 0 - 199 [facility] Comment on above: Order Comment: Desean [...] dosing. Performed By: #### L IPID #### [address] [address] Cholesterol in HDL [Mass/Vol] 39.0 mg/dL Abnormal [facility] Comment on above: Order Comment: Desean nt states she had black coffee this a.m. Result Comment: . AGE VERY LOW LOW NORMAL HIGH 0-19 Y < 35 < 40 40-45 ---- 20-24 Y ---- < 40 >45 ---- >24 Y ---- < 40 40-60 >60 . Performed By: #### L IPID #### [address] [address] Cholesterol in LDL [Mass/Vol] 92 mg/dL Normal 0 - 99 [facility] Comment on above: Order Comment: Desean hernandez states she had black coffee this a.m. Result Comment: . NEAR BORD AGE DESIRABLE OPTIMAL HIGH HIGH VERY HIGH 0-19 Y 0 - 109 --- 110-129 >/= 130 ---- 20-24 Y 0 - 119 --- 120-159 >/= 160 ---- >24 Y 0 - 99 100-129 130-159 160-189 >/=190 . Performed By: #### L IPID #### [address] [address] Cholesterol in VLDL [Mass/Vol] 51 mg/dL High 0 - 40 [facility] Comment on above: Order Comment: Desean hernandez states she had black coffee this a.m. Performed By: #### L IPID #### [address] [address] Cholesterol.total/C holesterol in HDL [Mass ratio] 4.7 {ratio} Normal [facility] Comment on above: Order Comment: Desean hernandez states she had black coffee this a.m. Result Comment: REF VALUES DESIRABLE < 3.4 HIGH RISK > 5.0 Performed By: #### L IPID #### [address] [address] NON-HDL CHOLESTEROL 143 mg/dL Normal [facility] Comment on above: Order Comment: Desean hernandez states she had black coffee this a.m. Result Comment: AGE DESIRABLE BORDERLINE HIGH HIGH VERY HIGH 0-19 Y 0 - 119 120 - 144 >/= 145 >/= 160 20-24 Y 0 - 149 150 - 189 >/= 190 ---- >24 Y 30 MG/DL ABOVE LDL CHOLESTEROL GOAL . Performed By: #### L IPID #### [address] [address] Triglyceride [Mass/Vol] 255 mg/dL High 0 - 149 [facility] Comment on above: Order Comment: Desean [...] dosing. Performed By: #### L IPID #### [address] [address] Vital Signs Date Time Vital Sign Value Performing Clinician Facility 04-09-2025 11:15-0400 Diastolic blood pressure 67 mm[Hg] Stefan Best MD Work Phone: [facility] 04-09-2025 11:15-0400 Heart rate 70 /min Stefan Best MD Work Phone: [facility] 04-09-2025 11:15-0400 Respiratory rate 16 /min Stefan eBst MD Work Phone: [facility] 04-09-2025 11:15-0400 SaO2% (BldA) [Mass fraction] 97 % Stefan Best MD Work Phone: [facility] 04-09-2025 11:15-0400 Systolic blood pressure 110 mm[Hg] Stefan Best MD Work Phone: [facility] 04-09-2025 08:00-0400 Body temperature 98.2 [degF] Stefan Best MD Work Phone: [facility] 04-09-2025 08:00-0400 Inhaled oxygen flow rate 2 L/min Stefan Best MD Work Phone: [facility] 04-09-2025 06:34-0400 Body weight 79.9 kg Stefan Best MD Work Phone: [facility] 04-07-2025 23:39-0400 Body height 149.86 cm Stefan Best MD Work Phone: [facility] 04-04-2025 11:30-0400 Body temperature 97.8 [degF] Stefan Best MD Work Phone: [facility] 04-04-2025 11:30-0400 Diastolic blood pressure 77 mm[Hg] Stefan Best MD Work Phone: [facility] 04-04-2025 11:30-0400 Heart rate 80 /min Stefan Best MD Work Phone: [facility] 04-04-2025 11:30-0400 Respiratory rate 16 /min Stefan Best MD Work Phone: [facility] 04-04-2025 11:30-0400 SaO2% (BldA) [Mass fraction] 95 % Stefan Best MD Work Phone: [facility] 04-04-2025 11:30-0400 Systolic blood pressure 143 mm[Hg] Stefan Best MD Work Phone: [facility] 04-03-2025 05:22-0400 Body weight 79.6 kg Stefan Best MD Work Phone: [facility] 03-22-2025 18:10-0400 Body height 149.86 cm Stefan Best MD Work Phone: [facility] 03-22-2025 15:53-0400 Body temperature 98.6 [degF] Stefan Best MD Work Phone: [facility] 03-22-2025 15:53-0400 Diastolic blood pressure 72 mm[Hg] Stefan Best MD Work Phone: [facility] 03-22-2025 15:53-0400 Heart rate 61 /min Stefan Best MD Work Phone: [facility] 03-22-2025 15:53-0400 Respiratory rate 16 /min Stefan Best MD Work Phone: [facility] 03-22-2025 15:53-0400 SaO2% (BldA) [Mass fraction] 94 % Stefan Best MD Work Phone: [facility] 03-22-2025 15:53-0400 Systolic blood pressure 132 mm[Hg] Stefan Best MD Work Phone: [facility] 03-22-2025 05:03-0400 Body weight 71.7 kg Stefan Best MD Work Phone: [facility] 03-21-2025 15:25-0400 Inhaled oxygen flow rate 3 L/min Stefan Best MD Work Phone: [facility] 03-21-2025 11:06-0400 Body height 149.86 cm Stefan Best MD Work Phone: [facility] 03-09-2025 14:50-0400 Diastolic blood pressure 80 mm[Hg] Stefan Best MD Work Phone: [facility] 03-09-2025 14:50-0400 Systolic blood pressure 138 mm[Hg] Stefan Best MD Work Phone: [facility] 02-08-2025 15:38-0400 Body height 149.86 cm Stefan Best MD Work Phone: [facility] 02-08-2025 15:38-0400 Body mass index (BMI) [Ratio] 31.7 kg/m2 Stefan Best MD Work Phone: [facility] 02-08-2025 15:38-0400 Body weight 71.21 kg Stefan Best MD Work Phone: [facility] 02-08-2025 15:38-0400 Diastolic blood pressure 80 mm[Hg] Stefan Best MD Work Phone: [facility] 02-08-2025 15:38-0400 Heart rate 69 /min Stefan Best MD Work Phone: [facility] 02-08-2025 15:38-0400 Respiratory rate 16 /min Stefan Best MD Work Phone: [facility] 02-08-2025 15:38-0400 SaO2% (BldA) [Mass fraction] 96 % Stefan Best MD Work Phone: [facility] 02-08-2025 15:38-0400 Systolic blood pressure 144 mm[Hg] Stefan Best MD Work Phone: [facility] 01-31-2025 15:30-0400 Body height 149.86 cm Stefan Best MD Work Phone: [facility] 01-31-2025 15:30-0400 Body mass index (BMI) [Ratio] 31.7 kg/m2 Stefan Best MD Work Phone: [facility] 01-31-2025 15:30-0400 Body weight 71.21 kg Stefan Best MD Work Phone: [facility] 01-31-2025 15:30-0400 Diastolic blood pressure 75 mm[Hg] Stefan Best MD Work Phone: [facility] 01-31-2025 15:30-0400 Heart rate 76 /min Stefan Best MD Work Phone: [facility] 01-31-2025 15:30-0400 Systolic blood pressure 153 mm[Hg] Stefan Best MD Work Phone: [facility] 01-11-2025 15:20-0400 Body height 149.86 cm Stefan Best MD Work Phone: [facility] 01-11-2025 15:20-0400 Body mass index (BMI) [Ratio] 33.3 kg/m2 Stefan Best MD Work Phone: [facility] 01-11-2025 15:20-0400 Body weight 74.84 kg Stefan Best MD Work Phone: [facility] 01-11-2025 15:20-0400 Diastolic blood pressure 80 mm[Hg] Stefan Best MD Work Phone: [facility] 01-11-2025 15:20-0400 Heart rate 72 /min Stefan Best MD Work Phone: [facility] 01-11-2025 15:20-0400 SaO2% (BldA) [Mass fraction] 99 % Stefan Best MD Work Phone: [facility] 01-11-2025 15:20-0400 Systolic blood pressure 126 mm[Hg] Stefan Best MD Work Phone: [facility] 10-22-2024 10:09-0400 Diastolic blood pressure 81 mm[Hg] Stefan Best MD Work Phone: [facility] 10-22-2024 10:09-0400 Heart rate 62 /min Stefan Best MD Work Phone: [facility] 10-22-2024 10:09-0400 Respiratory rate 16 /min Stefan Best MD Work Phone: [facility] 10-22-2024 10:09-0400 SaO2% (BldA) [Mass fraction] 95 % Stefan Best MD Work Phone: [facility] 10-22-2024 10:09-0400 Systolic blood pressure 154 mm[Hg] Stefan Best MD Work Phone: [facility] 10-22-2024 09:24-0400 Body temperature 97.2 [degF] Stefan Best MD Work Phone: [facility] 10-22-2024 09:24-0400 Inhaled oxygen flow rate 6 L/min Stefan Best MD Work Phone: [facility] 10-22-2024 06:33-0400 Body height 149.86 cm Stefan Best MD Work Phone: [facility] 10-22-2024 06:33-0400 Body weight 74.84 kg Stefan Best MD Work Phone: [facility] 10-04-2024 15:31-0400 Body height 149.86 cm Stefan Best MD Work Phone: [facility] 10-04-2024 15:31-0400 Body mass index (BMI) [Ratio] 33.3 kg/m2 Stefan Best MD Work Phone: [facility] 10-04-2024 15:31-0400 Body weight 74.84 kg Stefan Best MD Work Phone: [facility] 10-04-2024 15:31-0400 Diastolic blood pressure 81 mm[Hg] Stefan Best MD Work Phone: [facility] 10-04-2024 15:31-0400 Heart rate 71 /min Stefan Best MD Work Phone: [facility] 10-04-2024 15:31-0400 Respiratory rate 12 /min Stefan Best MD Work Phone: [facility] 10-04-2024 15:31-0400 SaO2% (BldA) [Mass fraction] 96 % Stefan Best MD Work Phone: [facility] 10-04-2024 15:31-0400 Systolic blood pressure 155 mm[Hg] Stefan Best MD Work Phone: [facility] 08-11-2024 15:39-0500 Diastolic blood pressure 60 mm[Hg] Angela Braun [employer] Work Phone: [facility] 08-11-2024 15:39-0500 Systolic blood pressure 102 mm[Hg] Angela Braun [employer] Work Phone: [facility] 08-11-2024 15:23-0500 Body height 149.9 cm Angela Braun [employer] Work Phone: [facility] 08-11-2024 15:23-0500 Body mass index (BMI) [Ratio] 33.33 kg/m2 Angela Braun [employer] Work Phone: [facility] 08-11-2024 15:23-0500 Body weight 74.84 kg Angela Braun [employer] Work Phone: [facility] 08-11-2024 15:23-0500 Heart rate 54 /min Angela Kade [employer] Work Phone: [facility] 08-03-2024 11:09-0500 Body height 149.86 cm Stefan Best MD Work Phone: [facility] 08-03-2024 11:09-0500 Diastolic blood pressure 71 mm[Hg] Stefan Best MD Work Phone: [facility] 08-03-2024 11:09-0500 Heart rate 66 /min Stefan Best MD Work Phone: [facility] 08-03-2024 11:09-0500 Respiratory rate 16 /min Stefan Best MD Work Phone: [facility] 08-03-2024 11:09-0500 SaO2% (BldA) [Mass fraction] 96 % Stefan Best MD Work Phone: [facility] 08-03-2024 11:09-0500 Systolic blood pressure 153 mm[Hg] Stefan Best MD Work Phone: [facility] 07-01-2024 11:08-0500 Body height 149.86 cm Stefan Best MD Work Phone: [facility] 07-01-2024 11:08-0500 Body mass index (BMI) [Ratio] 33.3 kg/m2 Stefan Best MD Work Phone: [facility] 07-01-2024 11:08-0500 Body weight 74.84 kg Stefan Best MD Work Phone: [facility] 07-01-2024 11:08-0500 Diastolic blood pressure 72 mm[Hg] Stefan Best MD Work Phone: [facility] 07-01-2024 11:08-0500 Heart rate 78 /min Stefan Best MD Work Phone: [facility] 07-01-2024 11:08-0500 SaO2% (BldA) [Mass fraction] 96 % Stefan Bset MD Work Phone: [facility] 07-01-2024 11:08-0500 Systolic blood pressure 128 mm[Hg] Stefan Best MD Work Phone: [facility] 06-28-2024 10:38-0500 Body height 149.86 cm Stefan Best MD Work Phone: [facility] 06-28-2024 10:38-0500 Body mass index (BMI) [Ratio] 33.3 kg/m2 Stefan Best MD Work Phone: [facility] 06-28-2024 10:38-0500 Body weight 74.84 kg Stefan Best MD Work Phone: [facility] 06-24-2024 10:14-0500 Body height 149.86 cm Stefan Best MD Work Phone: [facility] 06-24-2024 10:14-0500 Body temperature 98.1 [degF] Stefan Best MD Work Phone: [facility] 06-24-2024 10:14-0500 Body weight 74.84 kg Stefan Best MD Work Phone: [facility] 06-24-2024 10:14-0500 Diastolic blood pressure 59 mm[Hg] Stefan Best MD Work Phone: [facility] 06-24-2024 10:14-0500 Heart rate 66 /min Stefan Best MD Work Phone: [facility] 06-24-2024 10:14-0500 Respiratory rate 14 /min Stefan Best MD Work Phone: [facility] 06-24-2024 10:14-0500 SaO2% (BldA) [Mass fraction] 97 % Stefan Best MD Work Phone: [facility] 06-24-2024 10:14-0500 Systolic blood pressure 143 mm[Hg] Stefan Best MD Work Phone: [facility] 2024 10:02-0500 Diastolic blood pressure 68 mm[Hg] Stefan Best MD Work Phone: [facility] 2024 10:02-0500 Heart rate 67 /min Stefan Best MD Work Phone: [facility] 2024 10:02-0500 Respiratory rate 20 /min Stefan Best MD Work Phone: [facility] 2024 10:02-0500 SaO2% (BldA) [Mass fraction] 97 % Stefan Best MD Work Phone: [facility] 2024 10:02-0500 Systolic blood pressure 166 mm[Hg] Stefan Best MD Work Phone: [facility] 2024 09:12-0500 Body temperature 97.2 [degF] Stefan Best MD Work Phone: [facility] 2024 07:28-0500 Body height 149.86 cm Stefan Best MD Work Phone: [facility] 2024 07:28-0500 Body weight 74.84 kg Stefan Best MD Work Phone: [facility] 05-20-2024 10:00-0500 Body height 149.86 cm Stefan Best MD Work Phone: [facility] 05-20-2024 10:00-0500 Body mass index (BMI) [Ratio] 33.3 kg/m2 Stefan Best MD Work Phone: [facility] 05-20-2024 10:00-0500 Body weight 74.84 kg Stefan Best MD Work Phone: [facility] 05-20-2024 10:00-0500 Diastolic blood pressure 82 mm[Hg] Stefan Best MD Work Phone: [facility] 05-20-2024 10:00-0500 Heart rate 65 /min Stefan Best MD Work Phone: [facility] 05-20-2024 10:00-0500 SaO2% (BldA) [Mass fraction] 96 % Stefan Best MD Work Phone: [facility] 05-20-2024 10:00-0500 Systolic blood pressure 132 mm[Hg] Stefan Best MD Work Phone: [facility] 03-22-2024 14:23-0400 Body height 149.86 cm MD Stefan Best Work Phone: [facility] 03-22-2024 14:23-0400 Body mass index (BMI) [Ratio] 33.3 kg/m2 MD Stefan Best Work Phone: [facility] 03-22-2024 14:23-0400 Body temperature 96.7 [degF] MD Stefan Best Work Phone: [facility] 03-22-2024 14:23-0400 Body weight 74.84 kg MD Stefan Best Work Phone: [facility] 03-22-2024 14:23-0400 Diastolic blood pressure 70 mm[Hg] MD Stefan Best Work Phone: [facility] 03-22-2024 14:23-0400 Heart rate 76 /min MD Stefan Best Work Phone: [facility] 03-22-2024 14:23-0400 Respiratory rate 16 /min MD Stefan Best Work Phone: [facility] 03-22-2024 14:23-0400 SaO2% (BldA) [Mass fraction] 97 % MD Stefan Best Work Phone: [facility] 03-22-2024 14:23-0400 Systolic blood pressure 130 mm[Hg] MD Stefan Best Work Phone: [facility] 03-05-2024 13:28-0400 Body height 149.86 cm MD Stefan Best Work Phone: [facility] 03-05-2024 13:28-0400 Body mass index (BMI) [Ratio] 33.3 kg/m2 MD Stefan Best Work Phone: [facility] 03-05-2024 13:28-0400 Body weight 74.84 kg MD Stefan Best Work Phone: [facility] 03-05-2024 13:28-0400 Diastolic blood pressure 82 mm[Hg] MD Stefan Best Work Phone: [facility] 03-05-2024 13:28-0400 Heart rate 74 /min MD Stefan Best Work Phone: [facility] 03-05-2024 13:28-0400 Systolic blood pressure 147 mm[Hg] MD Stefan Best Work Phone: [facility] 02-29-2024 17:00-0400 Hourly Rounding Mbanefo OJUKWU [facility] 02-29-2024 17:00-0400 Promise to Return Mbanefo OJUKWU [facility] 02-29-2024 16:00-0400 Diastolic blood pressure 60 mm[Hg] Mbanefo OJUKWU [facility] 02-29-2024 16:00-0400 Heart rate 80 /min Mbanefo OJUKWU [facility] 02-29-2024 16:00-0400 Hourly Rounding Mbanefo OJUKWU [facility] 02-29-2024 16:00-0400 Mean blood pressure 78 mm[Hg] Mbanefo OJUKWU [facility] 02-29-2024 16:00-0400 Promise to Return Mbanefo OJUKWU [facility] 02-29-2024 16:00-0400 Respiratory rate 16 /min Mbanefo OJUKWU [facility] 02-29-2024 16:00-0400 SaO2% (BldA) [Mass fraction] 98 % Mbanefo OJUKWU [facility] 02-29-2024 16:00-0400 Systolic blood pressure 114 mm[Hg] Mbanefo OJUKWU [facility] 02-29-2024 15:22-0400 Respiratory rate 18 /min Mbanefo OJUKWU [facility] 02-29-2024 15:22-0400 SaO2% (BldA) [Mass fraction] 92 % Mbanefo OJUKWU [facility] 02-29-2024 15:22-0400 SaO2% (BldA) [Mass fraction] 91 % Mbanefo OJUKWU [facility] 02-29-2024 15:00-0400 Hourly Rounding Mbanefo OJUKWU [facility] 02-29-2024 15:00-0400 Promise to Return Mbanefo OJUKWU [facility] 02-29-2024 11:18-0400 gluc 137 mg/dL Mbanefo OJUKWU [facility] 02-29-2024 10:52-0400 Heart rate 72 /min Mbanefo OJUKWU [facility] 02-29-2024 10:49-0400 Diastolic blood pressure 63 mm[Hg] Mbanefo OJUKWU [facility] 02-29-2024 10:49-0400 Mean blood pressure 80 mm[Hg] Mbanefo OJUKWU [facility] 02-29-2024 10:49-0400 Systolic blood pressure 115 mm[Hg] Mbanefo OJUKWU [facility] 02-29-2024 10:49-0400 Body temperature 98.24 [degF] Mbanefo OJUKWU [facility] 02-29-2024 07:55-0400 gluc 130 mg/dL Mbanefo OJUKWU [facility] 02-29-2024 07:40-0400 Respiratory rate 18 /min Mbanefo OJUKWU [facility] 02-29-2024 07:38-0400 Heart rate 73 /min Mbanefo OJUKWU [facility] 02-29-2024 07:36-0400 Blood Pressure Location Mbanefo OJUKWU [facility] 02-29-2024 07:36-0400 Diastolic blood pressure 54 mm[Hg] Mbanefo OJUKWU [facility] 02-29-2024 07:36-0400 Mean blood pressure 77 mm[Hg] Mbanefo OJUKWU [facility] 02-29-2024 07:36-0400 Systolic blood pressure 123 mm[Hg] Mbanefo OJUKWU [facility] 02-29-2024 07:35-0400 Body temperature 98.06 [degF] Mbanefo OJUKWU [facility] 02-29-2024 03:30-0400 Body temperature 97.34 [degF] Mbanefo OJUKWU [facility] 02-29-2024 03:30-0400 Mean blood pressure 75 mm[Hg] Mbanefo OJUKWU [facility] 02-28-2024 19:00-0400 Body temperature 98.78 [degF] Mbanefo OJUKWU [facility] 02-28-2024 17:47-0400 gluc 118 mg/dL Mbanefo OJUKWU [facility] 02-28-2024 17:16-0400 Mean blood pressure 94 mm[Hg] Mbanefo OJUKWU [facility] 02-28-2024 14:00-0400 Body temperature 100.04 [degF] Mbanefo OJUKWU [facility] 02-28-2024 14:00-0400 Mean blood pressure 97 mm[Hg] Mbanefo OJUKWU [facility] 02-28-2024 10:00-0400 Heart rate 73 /min Mbanefo OJUKWU [facility] 02-27-2024 03:33-0400 Respiratory rate 17 /min Mbanefo OJUKWU [facility] 02-26-2024 23:49-0400 Respiratory rate 16 /min Mbanefo OJUKWU [facility] 02-26-2024 19:00-0400 Respiratory rate 20 /min Mbanefo OJUKWU [facility] 02-26-2024 17:35-0400 gluc Allison OJONAHKWU [facility] 02-26-2024 17:30-0400 Heart rate 78 /min Allison OCAITLINWU [facility] 02-10-2024 15:35-0400 Blood Pressure Location aYniv NATARAJAN [facility] 02-10-2024 15:35-0400 Diastolic blood pressure 62 mm[Hg] Yaniv NATARAJAN [facility] 02-10-2024 15:35-0400 Heart rate 78 /min Yaniv NATARAJAN [facility] 02-10-2024 15:35-0400 Respiratory rate 16 /min Yaniv NATARAJAN [facility] 02-10-2024 15:35-0400 Systolic blood pressure 144 mm[Hg] Yaniv NATARAJAN [facility] 02-03-2024 15:29-0400 Body height 149.86 cm MD Stefan Best Work Phone: [facility] 02-03-2024 15:29-0400 Body mass index (BMI) [Ratio] 33.3 kg/m2 MD Stefan Best Work Phone: [facility] 02-03-2024 15:29-0400 Body weight 74.84 kg MD Stefan Best Work Phone: [facility] 02-03-2024 15:29-0400 Diastolic blood pressure 75 mm[Hg] MD Stefan Best Work Phone: [facility] 02-03-2024 15:29-0400 Heart rate 72 /min MD Stefan Best Work Phone: [facility] 02-03-2024 15:29-0400 Systolic blood pressure 132 mm[Hg] MD Stefan Best Work Phone: [facility] 01-25-2024 12:00-0400 Body temperature 98.6 [degF] MD Stefan Best Work Phone: [facility] 01-25-2024 12:00-0400 Diastolic blood pressure 70 mm[Hg] MD Stefan Best Work Phone: [facility] 01-25-2024 12:00-0400 Heart rate 80 /min MD Stefan Best Work Phone: [facility] 01-25-2024 12:00-0400 Respiratory rate 18 /min MD Stefan Best Work Phone: [facility] 01-25-2024 12:00-0400 SaO2% (BldA) [Mass fraction] 92 % MD Stefan Best Work Phone: [facility] 01-25-2024 12:00-0400 Systolic blood pressure 135 mm[Hg] MD Stefan Best Work Phone: [facility] 01-25-2024 05:31-0400 Body weight 80 kg MD Stefan Best Work Phone: [facility] 01-24-2024 12:17-0400 Inhaled oxygen flow rate 2 L/min MD Stefan Best Work Phone: [facility] 01-23-2024 16:29-0400 Body height 149.86 cm MD Stefan Best Work Phone: [facility] 01-23-2024 16:29-0400 Body mass index (BMI) [Ratio] 34.5 kg/m2 MD Stefan Best Work Phone: [facility] 01-12-2024 16:11-0400 Body height 149.86 cm MD Stefan Best Work Phone: [facility] 01-12-2024 16:11-0400 Body mass index (BMI) [Ratio] 33.3 kg/m2 MD Stefan Best Work Phone: [facility] 01-12-2024 16:11-0400 Body temperature 96.4 [degF] MD Stefan Best Work Phone: [facility] 01-12-2024 16:11-0400 Body weight 74.84 kg MD Stefan Best Work Phone: [facility] 01-12-2024 16:11-0400 Diastolic blood pressure 80 mm[Hg] MD Stefan Best Work Phone: [facility] 01-12-2024 16:11-0400 Heart rate 82 /min MD Stefan Best Work Phone: [facility] 01-12-2024 16:11-0400 Respiratory rate 16 /min MD Stefan Best Work Phone: [facility] 01-12-2024 16:11-0400 SaO2% (BldA) [Mass fraction] 97 % MD Stefan Best Work Phone: [facility] 01-12-2024 16:11-0400 Systolic blood pressure 149 mm[Hg] MD Stefan Best Work Phone: [facility] 12-11-2023 15:50-0400 Body height 149.86 cm MD Stefan Best Work Phone: [facility] 12-11-2023 15:50-0400 Body mass index (BMI) [Ratio] 33.7 kg/m2 MD Stefan Best Work Phone: [facility] 12-11-2023 15:50-0400 Body weight 75.74 kg MD Stefan Best Work Phone: [facility] 12-11-2023 15:50-0400 Diastolic blood pressure 81 mm[Hg] MD Stefan Best Work Phone: [facility] 12-11-2023 15:50-0400 Heart rate 87 /min MD Stefan Best Work Phone: [facility] 12-11-2023 15:50-0400 Systolic blood pressure 167 mm[Hg] MD Stefan Best Work Phone: [facility] 11-27-2023 13:56-0400 Body height 149.86 cm MD Stefan Best Work Phone: [facility] 11-27-2023 13:56-0400 Body mass index (BMI) [Ratio] 33.9 kg/m2 MD Stefan Best Work Phone: [facility] 11-27-2023 13:56-0400 Body weight 76.2 kg MD Stefan Best Work Phone: [facility] 11-27-2023 13:56-0400 Diastolic blood pressure 81 mm[Hg] MD Stefan Best Work Phone: [facility] 11-27-2023 13:56-0400 Heart rate 76 /min MD Stefan Best Work Phone: [facility] 11-27-2023 13:56-0400 Systolic blood pressure 166 mm[Hg] MD Stefan Best Work Phone: [facility] 10-14-2023 13:33-0400 Diastolic blood pressure 68 mm[Hg] Margie [address] [place] [address] 10-14-2023 13:33-0400 Heart rate 78 /min [address] 10-14-2023 13:33-0400 Systolic blood pressure 108 mm[Hg] Margie 1 [facility] 09-17-2023 13:07-0500 Body height 149.9 cm Shahrzad Morales MD Work Phone: [facility] 09-17-2023 13:07-0500 Body mass index (BMI) [Ratio] 33.33 kg/m2 Shahrzad Morales MD Work Phone: [facility] 09-17-2023 13:07-0500 Body weight 74.84 kg Shahrzad Morales MD Work Phone: [facility] 09-17-2023 13:07-0500 Diastolic blood pressure 70 mm[Hg] Shahrzad Morales MD Work Phone: [facility] 09-17-2023 13:07-0500 Heart rate 84 /min Shahrzad Morales MD Work Phone: [facility] 09-17-2023 13:07-0500 Systolic blood pressure 116 mm[Hg] Shahrzad Morales MD Work Phone: [facility] 09-09-2023 15:18-0500 Body height 149.86 cm [facility] 09-09-2023 15:18-0500 Body mass index (BMI) [Ratio] 33.3 kg/m2 [facility] 09-09-2023 15:18-0500 Body weight 74.84 kg [facility] 09-09-2023 15:18-0500 Diastolic blood pressure 74 mm[Hg] [facility] 09-09-2023 15:18-0500 Heart rate 86 /min [facility] 09-09-2023 15:18-0500 Systolic blood pressure 117 mm[Hg] [facility] 08-13-2023 13:00-0500 Body height Da Lozano II Other [employer] [facility] [employer] [place] Other 08-13-2023 13:00-0500 Body height 149.86 cm [facility] 11-12-2022 15:30-0400 Body height Ross Colmenares Other [employer] Other 11-12-2022 15:30-0400 Body mass index (BMI) [Ratio] 33.32 kg/m2 Ross Colmenares Other [employer] Other 11-12-2022 15:30-0400 Body weight 74.84 kg Ross Colmenares Other [employer] Other 07-25-2022 15:55-0500 Body height 149.86 cm Li Lee Work Phone: [facility] DO Work Phone: 07-25-2022 15:55-0500 Body mass index (BMI) [Ratio] 34.94 kg/m2 Li Lee Work Phone: [facility]vzjoiclos[facility]Gdmlp[facility] 250 DO Work Phone: 07-25-2022 15:55-0500 Body surface area Derived from formula 1.73 m2 Li Lee Work Phone: IG[facility]Kmsqoxqoaf-Gagszn [place] 250 DO Work Phone: 07-25-2022 15:55-0500 Body weight 78.47 kg Li Lee Work Phone: OP[facility]Bwrmfnzizh-Rucujs [place] 250 DO Work Phone: 07-25-2022 15:55-0500 Diastolic blood pressure 80 mm[Hg] Li Lee Work Phone: [facility]Ssznvb[facility]ad[facility]Tbugt[facility] [place] 250 DO Work Phone: 07-25-2022 15:55-0500 Heart rate 66 /min Li Lee Work Phone: [facility]Wquayqtnud[facility]Whmjix [place] 250 DO Work Phone: 07-25-2022 15:55-0500 Systolic blood pressure 120 mm[Hg] Li Lee Work Phone: [facility]gykzhgdr[facility]Yvayxb [facility] DO Work Phone: 11-02-2021 13:16-0400 Body height 149.86 cm Li Lee Work Phone: [facility] 250 DO Work Phone: 11-02-2021 13:16-0400 Body mass index (BMI) [Ratio] 34.54 kg/m2 Li Lee Work Phone: [facility] 250 DO Work Phone: 11-02-2021 13:16-0400 Body surface area Derived from formula 1.73 m2 Li Lee Work Phone: [facility] 250 DO Work Phone: 11-02-2021 13:16-0400 Body weight 77.57 kg Li Lee Work Phone: [facility] 250 DO Work Phone: 11-02-2021 13:16-0400 Diastolic blood pressure 80 mm[Hg] Li Lee Work Phone: [facility] 250 DO Work Phone: 11-02-2021 13:16-0400 Heart rate 66 /min Li Lee Work Phone: [facility] 250 DO Work Phone: 11-02-2021 13:16-0400 Systolic blood pressure 130 mm[Hg] Li Lee Work Phone: [facility] 250 DO Work Phone: Encounters Encounter Date Encounter Type Care Provider Facility Start: 04-17-2025 End: 04-21-2025 Clinisync Result Encounter Nestor Tyler MD Work Phone: [facility] External [facility] Unsolicited Start: 04-17-2025 End: 04-21-2025 Clinisync Result Encounter Nestor Tyler MD Work Phone: [facility] External [facility] Unsolicited Start: 04-11-2025 End: 04-12-2025 ambulatory Stefan Best MD Work Phone: [facility] Work Phone: Start: 04-11-2025 End: 04-11-2025 Robby Artis DO -[facility] Start: 04-11-2025 ambulatory Yaniv Mirian [facility] Facility :[id number] Start: 04-07-2025 End: 04-09-2025 Evaluation and management of inpatient Stefan Best MD Work Phone: [facility] Work Phone: Start: 04-07-2025 End: 04-09-2025 Mateo Schaeffer MD -[facility] Work Phone: Start: 04-06-2025 End: 04-06-2025 ambulatory Stefan Best MD Work Phone: [facility] Work Phone: Start: 04-06-2025 End: 04-06-2025 Patient encounter procedure Da Artis MD -[facility] Work Phone: Start: 04-06-2025 End: 04-06-2025 Da Artis MD -[facility] Work Phone: Start: 04-04-2025 Non-patient / Non-visit Gardenia Montero [facility] Work Phone: Start: 04-04-2025 Gardenia Castellanos [facility] Work Phone: Start: 03-29-2025 Non-patient / Non-visit Cedric Soliman MD -[facility] Work Phone: Start: 03-29-2025 Farhat Soliman MD -[facility] Work Phone: Start: 03-22-2025 Non-patient / Non-visit Mindy ro [facility] -[facility] Work Phone: Start: 03-22-2025 Mindy De Jesus [facility] Work Phone: Start: 03-22-2025 End: 04-04-2025 Evaluation and management of inpatient Stefan Best Facility:[facility] Start: 03-21-2025 End: 03-22-2025 ambulatory Earnest Ferrari Facility:[facility] Start: 03-21-2025 Non-patient / Non-visit Da Artis MD -[facility] Work Phone: Start: 03-21-2025 Farhat Soliman MD -[facility] Work Phone: Start: 03-11-2025 End: 03-11-2025 ambulatory Stefan Best MD Work Phone: [facility] Work Phone: Start: 03-11-2025 End: 03-11-2025 Patient encounter procedure Da Artis MD -[facility] Work Phone: Start: 03-11-2025 End: 03-11-2025 Da Artis MD -[facility] Work Phone: Start: 03-09-2025 Registered Recurring Da Artis MD -Physical Therapy [facility] [place] Start: 03-09-2025 Encounter for other preprocedural examination Da Lozano [facility] Start: 03-09-2025 End: 03-09-2025 Patient encounter procedure Da Artis MD -[facility] Start: 03-09-2025 End: 03-09-2025 Da Artis MD -Physical Therapy B one [place] Start: 03-09-2025 End: 03-09-2025 ambulatory Stefan Best MD Work Phone: [facility] Work Phone: Start: 03-09-2025 End: 03-09-2025 ambulatory Stefan Best MD Work Phone: [facility] Work Phone: Start: 03-09-2025 End: 03-09-2025 Patient encounter procedure Da Artis MD -[facility] Work Phone: Start: 03-09-2025 End: 03-09-2025 Da Artis MD -[facility] Work Phone: Start: 03-03-2025 End: 03-03-2025 Patient encounter procedure Da Artis MD -Pre-Surgical Testing Work Phone: Start: 03-03-2025 End: 03-03-2025 Da Artis MD -Pre-Surgical Testi ng Work Phone: Start: 03-03-2025 End: 03-03-2025 ambulatory Stefan Best MD Work Phone: [facility] Work Phone: Start: 03-03-2025 Encounter for preprocedural laboratory examination Da Lozano [facility] Start: 02-08-2025 End: 02-08-2025 ambulatory Stefan Best MD Work Phone: [facility] Work Phone: Start: 02-08-2025 End: 02-08-2025 Patient encounter procedure Leroy Ashby MD -[facility] Work Phone: Start: 02-08-2025 End: 02-08-2025 Leroy Ashby MD -[facility] Work Phone: Start: 02-07-2025 Non-patient / Non-visit Leroy Ashby MD -[facility] Work Phone: Start: 02-07-2025 Leroy Ashby MD -[facility] Work Phone: Start: 01-31-2025 End: 01-31-2025 ambulatory Stefan Best MD Work Phone: [facility] Work Phone: Start: 01-31-2025 End: 01-31-2025 Patient encounter procedure Stefan Best MD -[facility] Work Phone: Start: 01-31-2025 End: 01-31-2025 Preprocedural examination done Stefan Best MD [facility] Start: 01-31-2025 End: 01-31-2025 Stefan Best MD -[facility] Work Phone: Start: 01-25-2025 Non-patient / Non-visit Da Artis MD -[facility] Work Phone: Start: 01-25-2025 Da Artis MD -[facility] Work Phone: Start: 01-11-2025 End: 01-11-2025 ambulatory Stefan Best MD Work Phone: [facility] Work Phone: Start: 01-11-2025 End: 01-11-2025 Patient encounter procedure Stefan Best MD -[facility] Work Phone: Start: 01-11-2025 End: 01-11-2025 Stefan Best MD -[facility] Work Phone: Start: 11-15-2024 End: 11-15-2024 Departed Referred Stefan Best MD Work Phone: [facility] [place] Work Phone: Start: 11-15-2024 End: 11-15-2024 ambulatory Stefan Best MD Work Phone: [facility] Work Phone: Start: 11-15-2024 End: 11-15-2024 Patient encounter procedure Stefan Best MD Work Phone: [facility] Work Phone: Start: 10-22-2024 End: 10-22-2024 Admission to same day surgery center Stefan Best MD Work Phone: [facility] [place] Start: 10-22-2024 End: 10-22-2024 ambulatory Stefan Best MD Work Phone: [facility] Work Phone: Start: 10-22-2024 End: 10-22-2024 ambulatory Yaniv NATARAJAN Facility:[id number] Start: 10-04-2024 End: 10-04-2024 ambulatory Stefan Best MD Work Phone: [facility] Work Phone: Start: 10-04-2024 End: 10-04-2024 Patient encounter procedure Stefan Best MD Work Phone: [facility] Work Phone: Start: 09-27-2024 Non-patient / Non-visit Da Lozano MD Work Phone: [facility] Work Phone: Start: 09-27-2024 Non-patient / Non-visit Da Lozano MD Work Phone: [facility] Work Phone: Start: 09-26-2024 End: 09-26-2024 ambulatory Isiah Mata Facility:[facility] Start: 09-26-2024 Non-patient / Non-visit Da Lozano MD Work Phone: [facility] Work Phone: Start: 08-11-2024 End: 08-11-2024 ambulatory [facility] Ambulatory Start: 08-11-2024 End: 08-11-2024 Office outpatient visit 25 minutes [facility] [employer] Work Phone: [facility] Comment on above: CAD, multiple vessel (Primary Dx); Occlusion and stenosis of right carotid artery; Ischemic cardiomyopathy; Primary hypertension; Mixed hyperlipidemia; Type 2 diabetes mellitus without complication, with long-term current use of insulin (Multi); BMI 33.0-33.9,adult; Chronic kidney disease, stage 3b (Multi); Bruit of right carotid artery; PVD (peripheral vascular disease) ([facility]) Start: 08-03-2024 End: 08-03-2024 ambulatory Stefan Best MD Work Phone: [facility] Work Phone: Start: 08-03-2024 End: 08-03-2024 Patient encounter procedure Stefan Best MD Work Phone: [facility] Work Phone: Start: 07-15-2024 End: 07-15-2024 Patient encounter procedure Stefan Best MD Work Phone: [facility] [place] Work Phone: Start: 07-15-2024 End: 07-15-2024 ambulatory Stefan Best MD Work Phone: [facility] Work Phone: Start: 07-12-2024 End: 07-12-2024 ambulatory Stefan Best MD Work Phone: [facility] Work Phone: Start: 07-12-2024 End: 07-12-2024 Departed Referred Stefan Best MD Work Phone: [facility] [place] Start: 07-01-2024 End: 07-01-2024 Patient encounter procedure Stefan Best MD Work Phone: [facility] Work Phone: Start: 06-28-2024 End: 06-28-2024 Patient encounter procedure Stefan Best MD Work Phone: [facility] Work Phone: Start: 06-28-2024 End: 06-28-2024 ambulatory Da Lozano II Facility:[facility] Start: 06-24-2024 End: 06-24-2024 Patient encounter procedure Stefan Best MD Work Phone: [facility] Work Phone: Start: 06-24-2024 End: 06-24-2024 ambulatory Da Harrisle II Facility:[facility] Start: 2024 End: 2024 Admission to same day surgery center Stefan Best MD Work Phone: [facility] [place] Start: 2024 End: 2024 ambulatory Stefan Best Facility:[facility] Start: 2024 End: 2024 ambulatory Yaniv NATARAJAN Facility:[id number] Start: 05-25-2024 End: 05-25-2024 Patient encounter procedure Stefan Best MD Work Phone: [facility] Work Phone: Start: 05-25-2024 End: 05-25-2024 ambulatory Stefan Best MD Work Phone: [facility] Work Phone: Start: 05-25-2024 End: 05-25-2024 Departed Referred Stefan Best MD Work Phone: [facility] [facility] [place] Work Phone: Start: 05-21-2024 End: 05-21-2024 Patient encounter procedure Stefan Best MD Work Phone: [facility]-Pre-Surgical Testing Work Phone: Start: 05-21-2024 End: 05-21-2024 ambulatory Stefan Best MD Work Phone: [facility] Work Phone: Start: 05-20-2024 End: 05-20-2024 Encounter for other preprocedural examination Stefan Best MD Work Phone: [facility] Start: 05-20-2024 End: 05-20-2024 Patient encounter procedure Stefan Best MD Work Phone: [facility] Work Phone: Start: 05-14-2024 Non-patient / Non-visit Stefan Best MD Work Phone: [facility] Work Phone: Start: 05-14-2024 ambulatory Yaniv NATARAJAN Facility :CD:[id number] Start: 04-07-2024 End: 04-07-2024 Departed Referred MD Stefan Best Work Phone: [facility] [place] Work Phone: Start: 04-07-2024 End: 04-07-2024 ambulatory MD Stefan Best Work Phone: [facility] Work Phone: Start: 04-07-2024 End: 04-07-2024 Patient encounter procedure MD Stefan Best Work Phone: [facility] Work Phone: Start: 03-22-2024 End: 03-22-2024 ambulatory MD Stefan Best Work Phone: [facility] Work Phone: Start: 03-22-2024 End: 03-22-2024 Patient encounter procedure MD Stefan Best Work Phone: [facility] [place] Work Phone: Start: 03-19-2024 Non-patient / Non-visit MD Sulema Best Work Phone: [facility] Work Phone: Start: 03-17-2024 Non-patient / Non-visit MD Sulema Best Work Phone: [facility] Work Phone: Start: 03-05-2024 End: 03-05-2024 ambulatory MD Stefan Best Work Phone: [facility] Work Phone: Start: 03-05-2024 End: 03-05-2024 Patient encounter procedure MD Stefan Best Work Phone: [facility] Work Phone: Start: 02-26-2024 ambulatory Damian RUSS Facility:[facility] Start: 02-26-2024 Emergency department patient visit Baljit Hawkins [facility] Start: 02-26-2024 End: 02-29-2024 Evaluation and management of inpatient Allison PARKKWDesi Facility[facility] Start: 02-10-2024 End: 02-10-2024 ambulatory Yaniv NATARAJAN Facility:[facility] Start: 02-10-2024 End: 02-10-2024 Patient encounter procedure Yaniv NATARAJAN [facility] Start: 02-03-2024 End: 02-03-2024 ambulatory MD Stefan Best Work Phone: [facility] Work Phone: Start: 02-03-2024 End: 02-03-2024 Patient encounter procedure MD Stefan Best Work Phone: [facility] Work Phone: Start: 01-26-2024 ambulatory TITLE INSURANCE AGENT Maxine Llanes Facilit y: [place] Start: 01-23-2024 Non-patient / Non-visit MD Sulema Best Work Phone: [facility] Work Phone: Start: 01-23-2024 End: 01-23-2024 ambulatory Yaniv NATARAJAN Facility:CD:[id number] Start: 01-22-2024 End: 01-25-2024 Evaluation and management of inpatient MD Stefan Best Work Phone: [facility] Work Phone: Start: 01-12-2024 End: 01-12-2024 ambulatory MD Stefan Best Work Phone: [facility] Work Phone: Start: 01-12-2024 End: 01-12-2024 Patient encounter procedure MD Stefan Best Work Phone: [facility] Work Phone: Start: 12-11-2023 End: 12-11-2023 ambulatory MD Stefan Best Work Phone: [facility] Work Phone: Start: 12-11-2023 End: 12-11-2023 Patient encounter procedure MD Stefan Best Work Phone: [facility] Work Phone: Start: 12-06-2023 Non-patient / Non-visit MD Sulema Best Work Phone: [facility] Work Phone: Start: 12-02-2023 End: 12-02-2023 ambulatory MD Stefan Best Work Phone: [facility] Work Phone: Start: 12-02-2023 End: 12-02-2023 Patient encounter procedure MD Stefan Best Work Phone: [facility] Start: 11-27-2023 Patient encounter status MD Carlo Best Work Phone: [facility] Start: 11-27-2023 Preprocedural examination done Stefan Best MD Work Phone: [facility] Start: 11-27-2023 End: 11-27-2023 Patient encounter procedure MD Stefan Best Work Phone: [facility] Work Phone: Start: 11-22-2023 Non-patient / Non-visit MD Sulema Best Work Phone: [facility] Work Phone: Start: 11-19-2023 End: 11-19-2023 ambulatory TITLE INSURANCE AGENT Maxine Llanes Facility:[facility] Start: 10-23-2023 End: 10-23-2023 ambulatory [facility] Work Phone: Start: 10-23-2023 End: 10-23-2023 Patient encounter procedure [facility] Work Phone: Start: 10-14-2023 End: 10-14-2023 Subsequent hospital visit by physician Margie Juárez Stress Room 1 [facility] Comment on above: CAD, multiple vessel ; S/P CABG x 3; Ischemic cardiomyopathy; Occlusion and stenosis of right carotid artery; Shortness of breath Start: 10-14-2023 End: 10-14-2023 ambulatory SHAHRZAD MORALES [facility] Start: 09-17-2023 ambulatory TITLE INSURANCE AGENT Maxine L Shraddha Facil ity:[facility] Start: 09-17-2023 End: 09-17-2023 Patient encounter procedure [facility] Work Phone: Start: 09-17-2023 End: 09-17-2023 Office outpatient visit 25 minutes Shahrzad Morales MD Work Phone: [facility] Comment on above: CAD, multiple vessel (Primary Dx); S/P CABG x 3; History of angioplasty; Primary hypertension; Ischemic cardiomyopathy; Mixed hyperlipidemia; BMI 32.0-32.9,adult; Former smoker; Occlusion and stenosis of right carotid artery; Shortness of breath Start: 09-09-2023 End: 09-09-2023 Patient encounter procedure [facility] Work Phone: Start: 09-08-2023 End: 09-08-2023 ambulatory TITLE INSURANCE AGENT Maxine L Shraddha [facility] Start: 08-20-2023 End: 08-20-2023 ambulatory TITLE INSURANCE AGENT Maxine L Shraddha [facility] Start: 08-13-2023 End: 08-13-2023 ambulatory Da Lozano II Other [facility] Other Start: 08-13-2023 Office outpatient vi sit 15 minutes Da Lozano II [facility] Start: 08-13-2023 End: 08-13-2023 Patient encounter procedure [facility]- Start: 05-21-2023 End: 05-21-2023 ambulatory TITLE INSURANCE AGENT Maxine L Shraddha [facility] Start: 04-23-2023 (Procedure) Raine Colmenares [facility] Start: 04-23-2023 End: 04-23-2023 ambulatory Ross Colmenares Other [facility] Other Start: 04-07-2023 End: 04-07-2023 ambulatory Ross Colmenares Other [facility] Other Start: 04-07-2023 Telephone encounter Ross Colmenares [facility] [place] [facility] Start: 03-27-2023 End: 03-27-2023 ambulatory Da [place] II Other [facility] Other Start: 03-27-2023 Office outpatient vi sit 15 minutes Da [place] II [facility] [place] [facility] Start: 03-25-2023 ambulatory TITLE INSURANCE AGENT Maxine L Shraddha Facil ity:[facility] Start: 03-05-2023 End: 03-05-2023 ambulatory TITLE INSURANCE AGENT Maxine L Shraddha Facility:[facility] [place] Start: 02-10-2023 End: 02-10-2023 Lab Drop off Maxine L Shraddha [facility] Start: 12-25-2022 (Procedure) Raine Colmenares [facility] Start: 12-25-2022 End: 12-25-2022 ambulatory Ross Colmenares Other [facility] Other Start: 11-12-2022 End: 11-12-2022 ambulatory Ross Colmenares Other [facility] Other Start: 11-12-2022 Office outpatient ne w 45 minutes Ross Colmenares [facility] Start: 11-11-2022 End: 11-11-2022 ambulatory MD Li Lee Work Phone: [facility] Work Phone: Start: 11-11-2022 End: 11-11-2022 Patient encounter procedure MD Li Lee Work Phone: [facility] [place] [facility] Start: 10-09-2022 Rx Renewal Li Lee Work Phone: [facility] 250 DO Work Phone: Start: 07-25-2022 Office outpatient vi sit 25 minutes Li Lee Work Phone: [facility] DO Work Phone: Start: 07-25-2022 ambulatory Shahrzad Morales II Facility: Start: 07-10-2022 Rx Renewal Li Lee Work Phone: [facility] 250 DO Work Phone: Start: 01-30-2022 End: 01-31-[address] LI LEE Facility:[facility] Start: 12-19-2021 Encounter for genera l adult medical examination without abnormal findings DR SHAHRZAD MORALES [facility] Start: 12-13-2021 End: 12-14-[address] LI LEE Facility:[facility] Start: 12-13-2021 End: 12-14-2021 Encounter for general adult medical examination without abnormal findings DR LI LEE Facility:[facility] Start: 11-02-2021 Office outpatient vi sit 25 minutes Li Lee Work Phone: [facility] 250 DO Work Phone: Start: 11-02-[address] LI LEE Facilit y:[facility] Start: 10-18-2021 End: 01-19-[address] LI LEE Facility:[facility] Start: 10-15-2021 End: 10-16-[address] LI LEE Facility:[facility] Start: 10-11-2021 Rx Renewal Li Lee Work Phone: [facility] 250 DO Work Phone: Start: 09-10-2021 Rx Renewal Li E Lee Work Phone: [facility] 250 DO Work Phone: Start: 08-03-2021 AUDIT Li Lee Work Phone: [facility] 250 DO Work Phone: Start: 11-20-2017 Ambulatory CHAO KIRNUS Facility :[id number] Start: 09-04-2017 Ambulatory CHAO KIRNUS Facility :[id number] Start: 04-07-2017 End: 04-08-2017 Ambulatory DEFAULT PHYSICIAN Facility:[facility] Patient encounter status Li white Work Phone: [facility] 250 DO Work Phone: Procedures Date Procedure Procedure Detail Performing Clinician Start: 04-17-2025 [facility] CBC WITH PLATEL ET NO DIFFERENTIAL Nestor [...] of Surgery: [id number] Result Comment: PERF ORMED BY:[facility] [place] [id number] MEDICAL DIRECTORRADHA DURAN M.D. Start: 2024 Cystoscopy [...] artery bypass grafting S/P CABG x 3 iL Lee Work Phone: History of coronary artery [...] procedure 08/11/2025 11:10 AM EST Office Visit [place] [id number] [place] [address] Shahrzad Cobb, [address] [place] [address] [facility] Start: 07-25-2025 End: 07-25-2025 Patient encounter procedure 07/25/2025 9:45 AM EST Appointment [place] [address] [place] [id number] [facility] Start: 04-11-2025 [facility] Start: 04-11-2025 Urine culture [facility] Start: 04-09-2025 [facility] Start: 04-08-2025 Referral to patient sitter [facility] Start: 04-08-2025 Hospital admission [facility] Start: 04-04-2025 [facility] Start: 03-22-2025 Hospital admission [facility] Start: 03-22-2025 Referral to clinical bank note designer [facility] Start: 03-22-2025 [facility] Start: 03-21-2025 Hospital admission [facility] Start: 03-21-2025 Referral to clinical bank note designer [facility] Start: 03-21-2025 Referral to rehabilitation physician [facility] Start: 03-14-2025 Influenza vaccination Influenza Vacc ine (#1) [facility] Start: 03-09-2025 Plain X-ray of left hip XR hip LT min 2V(w/wo pelvis)* [facility] Start: 03-09-2025 XR Hip - left 2 Views [facility] Start: 03-03-2025 Urine culture [facility] Start: 03-03-2025 [facility] Start: 03-03-2025 Bacteria identified in Urine by Culture Urine Culture [facility] Start: 11-15-2024 Urine culture [facility] Start: 11-15-2024 Bacteria identified in Urine by Culture Urine Culture [facility] Start: 10-22-2024 [facility] Start: 10-22-2024 Supine abdominal X-ray [facility] Start: 09-26-2024 Urine culture [facility] Start: 08-11-2024 End: 08-11-2026 US.doppler Carotid arteries - bilateral Vascular US Carotid Artery Duplex Bilateral Vascular Ultrasound Routine Bruit of right carotid artery Expected: 08/11/2024 (Approximate), Expires: 08/11/2026 [facility] Service Area Work Phone: Comment on above: Expected: 08/11/2024 (Approximate), Expires: 08/11/2026 Start: 07-15-2024 Bacteria identified in Urine by Culture Urine Culture [facility] Start: 07-15-2024 Urine culture [facility] Start: 07-12-2024 Total replacement of left hip joint OR Total Hip Arthro Anterior Approach (Left) [facility] Start: 06-09-2024 End: 06-09-2024 Patient encounter procedure 06/09/2024 11:30 AM EST Office Visit [facility] [address] [place] [address] Angela Braun, [employer] [address] [place] [address] [facility] Start: 2024 End: 2024 [facility] Start: 05-25-2024 Bacteria identified in Urine by Culture Urine Culture [facility] Start: 05-25-2024 Urine culture [facility] Start: 04-07-2024 Bacteria identified in Urine by Culture [facility] Start: 03-14-2024 COVID-19 Vaccine () COVID-19 Vaccine () [facility] Start: 03-14-2024 Influenza vaccination [facility] Start: 01-27-2024 [facility] Start: 01-26-2024 [facility] Start: 01-25-2024 [facility] Start: 01-25-2024 [facility] Start: 01-22-2024 Hospital admission [facility] Start: 01-22-2024 Referral to surgery teacher [facility] Start: 01-22-2024 Referral to urologist [facility] Start: 01-22-2024 [facility] Start: 01-22-2024 Dilation of Bilatera l Ureters, Via Natural or Artificial Opening Endoscopic Dilation of Bilateral Ureters, Via Natural or Artificial Opening Endoscopic [facility] Start: 01-22-2024 Fluoroscopy of Kidne ys, Ureters and Bladder using Low Osmolar Contrast Fluoroscopy of Kidneys, Ureters and Bladder using Low Osmolar Contrast [facility] Start: 12-12-2023 Patient referral [facility] Work Phone: Start: 12-02-2023 MRSA Culture MRSA Culture [facility] Start: 09-17-2023 End: 09-16-2025 NM Heart Perfusion W stress and W radionuclide IV Nuclear Stress Test Cardiac Nuclear Medicine Routine CAD, multiple vessel S/P CABG x 3 Ischemic cardiomyopathy Occlusion and stenosis of right carotid artery Shortness of breath Expected: 09/17/2023 (Approximate), Expires: 09/16/2025 [facility] Service Area Work Phone: Comment on above: Expected: 09/17/2023 (Approximate), Expires: 09/16/2025 Start: 07-23-2023 FUV, Provider: Shahrzad Morales, Status: Pen, Time: 3:40 PM FUV, Provider: Shahrzad Morales, Status: Pen, Time: 3:40 PM [facility] [place] [address] DO Work Phone: Start: 07-19-2023 Glaucoma screening Diabetes: R etinopathy Screening [facility] Start: 03-14-2023 COVID-19 Vaccine ( season) COVID-19 Vaccine ( season) [facility] Start: 03-14-2023 Influenza vaccination Influenza Vacc ine (#1) [facility] Start: 11-11-2022 X-ray of lumbar spin e, four views XR lumbar spine AP/LAT/FLX/EXT [facility] Start: 11-11-2022 Plain X-ray of left hip XR hip LT min 2V(w/wo pelvis)* [facility] Start: 11-11-2022 XR Hip - left 2 Views [facility] Start: 10-16-2022 Medicare Annual Well ness Visit Medicare Annual Wellness Visit (AWV) [facility] Start: 07-25-2022 FUV, Provider: Shahrzad Morales, Status: Pen, Time: 3:30 PM FUV, Provider: Shahrzad Morales, Status: Pen, Time: 3:30 PM -[facility] 250 DO Work Phone: Start: 04-19-2022 FUV, Provider: Shahrzad Morales, Status: Pen, Time: 3:20 PM FUV, Provider: Shahrzad Moralse, Status: Pen, Time: 3:20 PM [facility] 250 DO Work Phone: Start: 11-02-2021 FUV, Provider: Shahrzad Morales, Status: Pen, Time: 1:15 PM [facility]UV, Provider: Shahrzad Morales, Status: Pen, Time: 1:15 PM [facility] 250 DO Work Phone: Start: 06-16-2020 Lipid panel Lipid Panel [facility] Start: 2020 RSV High Risk: (Elde rly (60+) or Population) (1 - 1-dose 75+ series) RSV High Risk: (Elderly (60+) or Population) (1 - 1-dose 75+ series) [facility] Start: 09-15-2019 Hemoglobin A1c measurement Diabetes: Hemoglobin A1C [facility] Start: 1995 Zoster Vaccines (1 of 2) Zoster Vacc alli (1 of 2) [facility] Start: 1967 DTaP/Tdap/Td Vaccine s (1 - Tdap) DTaP/Tdap/Td Vaccines (1 - Tdap) [facility] Start: 1964 Urine screening for protein Diabetes: Urine Protein Screening [facility] Start: 1963 Hepatitis C screening Hepatitis C Sc reening [facility] Start: 1955 Diabetic foot examination Diabetes: Foot Exam [facility] Start: 1945 Medicare Annual Well ness Visit Medicare Annual Wellness Visit (AWV) [facility] Start: 1945 Screening for osteoporosis Bone Density Scan [facility] Start: 1945 Urine screening for protein Diabetes: Urine Protein Screening [facility] Bacteria identified in Urine by Culture [facility] Cotinine [Mass/volum e] in Serum or Plasma [facility] Immunofixation for Urine Fir [facility] Nicotine [Mass/volum e] in Serum or Plasma [facility] Patient Education [facility] Work Phone: Patient referral [facility] Work Phone: Renal function 2000 panel - Serum or Plasma [facility] Renal function 2000 panel - Serum or Plasma [facility] Renal function 2000 panel - Serum or Plasma [facility] Renal function 1999 panel - Serum or Plasma [facility] Urine culture [facility]ney - bilateral Fire[facility] Immunizations Immunization Date Immunization Notes Care Provider Fa kasandra 07-03-2022 Fluad Quadrivalent 0 .5 ML Intramuscular Prefilled Syringe Li Lee Work Phone: [facility] elias 250 DO Work Phone: 07-03-2022 influenza virus vacc ine, unspecified formulation Maxine Llanes [facility] 07-03-2022 influenza, injectabl e, quadrivalent, contains preservative Shahrzad Morales MD Work Phone: [facility] Work Phone: 06-17-2022 Pfizer COVID-19 Vac Bivalent 30 MCG/0.3ML Intramuscular Suspension Li Lee Work Phone: [facility] Comment on above: Result Comment: 2022: [id number] 04-13-2021 Pfizer-BioNTech COVI D-19 Vacc 30 MCG/0.3ML Intramuscular Suspension Li Lee Work Phone: [facility] Comment on above: Result Comment: 2022: [id number] 08-30-2020 Pfizer-BioNTech COVI D-19 Vacc 30 MCG/0.3ML Intramuscular Suspension Li Lee Work Phone: [facility] Comment on above: Result Comment: 2022: [id number] 08-09-2020 Pfizer-BioNTech COVI D-19 Vacc 30 MCG/0.3ML Intramuscular Suspension Li Lee Work Phone: [facility] Comment on above: Result Comment: 2022: [id number] 07-01-2019 influenza virus vacc ine, unspecified formulation Maxine Llanes [facility] 07-01-2019 influenza, injectabl e, quadrivalent, contains preservative Li Lee Work Phone: [facility] [address] DO Work Phone: 07-14-2018 influenza virus vacc ine, unspecified formulation Li Lee Work Phone: [facility] 04-16-2018 influenza virus vacc ine, unspecified formulation Maxine Shraddha [facility] 04-16-2018 pneumococcal polysaccharide vaccine, 23 valent Li Conley Rosa Work Phone: [facility] 04-13-2018 influenza virus vacc ine, unspecified formulation Li Ruizight Work Phone: [place] [address] DO Work Phone: 04-13-2018 pneumococcal conjuga te vaccine, 13 valent Li Conley Lee Work Phone: [place] [address] DO Work Phone: 05-16-2017 influenza virus vacc ine, unspecified formulation Maxine Shraddha [facility] 05-12-2017 influenza, high dose seasonal, preservative-free Li Conley Rosa Work Phone: [place] [address] DO Work Phone: 10-30-2016 pneumococcal conjuga te vaccine, 13 valent Li Ruizight Work Phone: [facility] 10-12-2016 pneumococcal polysaccharide vaccine, 23 valent Li Ruizight Work Phone: [facility] [address] DO Work Phone: 07-14-2011 influenza virus vacc ine, unspecified formulation Li Ruizight Work Phone: [facility] 250 DO Work Phone: Payers Date Payer Category Payer Self-pay [id number] 2023 Medicare [id number] 2022 Medicare supplementa l policy (as second payer) AAR [id number] 2022 Unknown 2010 Medicare [id number]. [id number] 2010 Medicare [id number] [id number] 1959 Medicare [id number] 1959 Self-pay [id number] 1959 Unknown [id number] 1945 Unknown [id number] 2.16.840.1.704621.3.579. 2.593 1945 Unknown [id number] 2.16.840.1.577698.3.579. 2.593 1945 Unknown [id number] 2.16.840.1.452904.3.579. 2.593 1945 Unknown [id number] 2.16.840.1.982607.3.579. 2.593 1945 Unknown [id number] 2.16.840.1.923592.3.579. 2.593 1945 Unknown [id number] 2.16.840.1.548586.3.579. 2.356 1945 Unknown [id number] 2.16.840.1.897270.3.579. 2.356 1945 Unknown [id number] 2.16.840.1.847204.3.579. 2.727 1945 Unknown [id number] 2.16.840.1.267737.3.579. 2.72 1945 Unknown [id number] 2.16.840.1.424356.3.579. 2 1945 Unknown [id number] 2.16.840.1.863349.3.579. 2. 1945 Unknown [id number] 2.16.840.1.079058.3.579. 2 1945 Unknown [id number] 2.16.840.1.376545.3.579. 2. 1945 Unknown [id number] 2.16.840.1.583728.3.579. 2 1945 Unknown [id number] 2.16.840.1.518908.3.579. 2 1945 Unknown [id number] 2.16.840.1.027536.3.579. 2 1945 Unknown [id number] 2.16.840.1.783427.3.579. 2 1945 Unknown [id number] 2.16.840.1.499849.3.579. 2 1945 Unknown [id number] 2.16.840.1.137371.3.579. 2 1945 Unknown [id number] 2.16.840.1.947167.3.579. 2 1945 Unknown [id number] 2.16.840.1.516514.3.579. 2. 1945 Unknown [id number] 2.16.840.1.950043.3.579. 2. 1945 Unknown [id number] 2.16.840.1.721558.3.579. 2 1945 Unknown [id number] 2.16.840.1.754594.3.579. 2.727 1945 Unknown [id number] 2.16.840.1.481097.3.579. 2.727 1945 Unknown [id number] 2.16.840.1.196976.3.579. 2.72 1945 Unknown [id number] 2.16.840.1.962855.3.579. 2.72 1945 Unknown [id number] 2.16.840.1.699159.3.579. 2.1246 1945 Unknown [id number] 2.16.840.1.809315.3.579. 2.1245 1945 Unknown [id number] 2.16.840.1.040791.3.579. 2.1245 1945 Unknown [id number] 2.16.840.1.169023.3.579. 2.1245 1945 Unknown [id number] 2.16.840.1.922655.3.579. 2.6 1945 Unknown [id number] 2.16.840.1.947322.3.579. 2.1243 1945 Unknown [id number] 2.16.840.1.252546.3.579. 2. 1945 Unknown [id number] 2.16840.1.648084.3.579. 2. 1945 Unknown [id number] 2.16.840.1.129944.3.579. 2.72 1945 Unknown [id number] 2.16.840.1.514245.3.579. 2. 1945 Unknown [id number] 2.16.840.1.403992.3.579. 2.727 Medicare [id number] Medicare [id number] Unknown [id number] 2.16.840.1.773233.3.579. 2.531 Unknown [id number] 2.16.840.1.716205.3.579. 2.531 Unknown [id number] 2.16.840.1.554673.3.579. 2.531 Unknown [id number] 2.16.840.1.161303.3.579. 2.531 Unknown [id number] 2.16.840.1.609370.3.579. 2.531 Unknown [id number] 2.16.840.1.553867.3.579. 2.531 Unknown [id number] 2.16.840.1.442300.3.579. 2.531 Unknown [id number] 2.16.840.1.986366.3.579. 2.531 Unknown [id number] 2.16.840.1.693790.3.579. 2.531 Unknown [id number] 2.16.840.1.034142.3.579. 2.531 Unknown [id number] 2.16.840.1.186777.3.579. 2.531 Unknown [id number] 2.16.840.1.506975.3.579. 2.531 Unknown [id number] 2.16.840.1.752089.3.579. 2.531 Unknown [id number] 2.16.840.1.335835.3.579. 2.531 Unknown [id number] 2.16.840.1.600613.3.579. 2.531 Unknown [id number] 2.16.840.1.738141.3.579. 2.531 Unknown [id number] 2.16.840.1.393071.3.579. 2.531 Social History Date Type Detail Facility Start: 07-08-2023 End: 08-11-2024 Former smoker Former smoker [place] [address] DO Work Phone: Comment on above: Quit 17 years ago; Quit 25+ years ago; coffee occasionally soda, tea; Start: 08-06-2018 End: 04-08-2025 Tobacco smoking status NHIS Ex-smoker (finding) [facility] Comment on above: quit age 50 Start: 1945 Sex Assigned At Female F [facility] Start: 07-08-2023 End: 08-11-2024 Sex Assigned At [facility] Tobacco smoking status Never Mina andrewJose Alejandro [facility] Comment on above: quit age 50 End: 07-14-1999 History of tobacco use Current smoker [facility] Work Phone: End: 07-14-1999 History of tobacco use Cigarette Smoker [facility] Work Phone: Start: 07-08-2023 End: 08-11-2024 Tobacco use and exposure Smokeless tobacco non-user [facility] Work Phone: Start: 09-17-2023 End: 08-11-2024 Alcohol intake Current drinker of alcohol (finding) [facility] Work Phone: Start: 07-08-2023 Alcohol Comment occasional [facility] Work Phone: Start: 1945 Sex Assigned At Not on file [facility] Work Phone: Start: 09-07-2023 End: 08-11-2024 Exposure to SARS-CoV-2 (event) Not sure [facility] Start: 08-13-2023 Tobacco smoking stat us ALIS Never smoked tobacco (finding) [facility] Start: 05-22-2024 End: 11-15-2024 Sex Female (finding) [facility] Start: 04-01-2025 End: 04-08-2025 SDOH Follow up SDOH Follow up [facility] Work Phone: [facility] Medical Equipment Procedure Code Equipment Code Equipment Origin al Text Equipment Identifier Dates Cystoscopy, with ureteral calculus manipulation and stent placement ()[id number] FDA Start: 01-23-2024 Cystoscopy, with ureteral calculus manipulation and stent placement ()[id number] FDA Start: 2024 Cystoscopy, with ureteral calculus manipulation and stent placement ()[id number] FDA Start: 10-22-2024 Cystoscopy, with ureteral calculus manipulation and stent placement ()[id number] FDA Start: 10-22-2024 Arthroplasty, hip, total, anterior approach ()[id number] FDA Start: 03-21-2025 Arthroplasty, hip, total, anterior approach ()[id number] FDA Start: 03-21-2025 Arthroplasty, hip, total, anterior approach ()[id number] FDA Start: 03-21-2025 Arthroplasty, hip, total, anterior approach ()[id number] FDA Start: 03-21-2025 Arthroplasty, hip, total, anterior approach ()[id number] FDA Start: 03-21-2025 Arthroplasty, hip, total, anterior approach ()[id number] FDA Start: 03-21-2025 Arthroplasty, hip, total, anterior approach ()[id number] 7927 FDA Start: 03-21-2025 AAA repair with graft GRAFT SUSAN SHIELD [id number] FDA Start: 07-20-2018 AAA repair with graft IR STENT S MART 9 X 40 120 CM FDA Start: 07-20-2018 AAA repair with graft GRAFT SUSAN SHIELD [id number] FDA Start: 07-20-2018 AAA repair with graft IR STENT S MART 9 X 40 120 CM FDA Start: 07-20-2018 AAA repair with graft GRAFT SUSAN SHIELD [id number] FDA Start: 07-20-2018 AAA repair with graft IR STENT S MART 9 X 40 120 CM FDA Start: 07-20-2018 AAA repair with graft GRAFT SUSAN SHIELD [id number] FDA Start: 07-20-2018 AAA repair with graft IR STENT S MART 9 X 40 120 CM FDA Start: 07-20-2018 AAA repair with graft GRAFT SUSAN SHIELD [id number] FDA Start: 07-20-2018 AAA repair with graft IR STENT S MART 9 X 40 120 CM FDA Start: 07-20-2018 AAA repair with graft GRAFT SUSAN SHIELD [id number] FDA Start: 07-20-2018 AAA repair with graft IR STENT S MART 9 X 40 120 CM FDA Start: 07-20-2018 AAA repair with graft GRAFT SUSAN SHIELD [id number] FDA Start: 07-20-2018 AAA repair with graft IR STENT S MART 9 X 40 120 CM FDA Start: 07-20-2018 AAA repair with graft GRAFT SUSAN SHIELD [id number] FDA Start: 07-20-2018 AAA repair with graft IR STENT S MART 9 X 40 120 CM FDA Start: 07-20-2018 AAA repair with graft GRAFT SUSAN SHIELD [id number] FDA Start: 07-20-2018 AAA repair with graft IR STENT S MART 9 X 40 120 CM FDA Start: 07-20-2018 AAA repair with graft GRAFT SUSAN SHIELD [id number] FDA Start: 07-20-2018 AAA repair with graft IR STENT S MART 9 X 40 120 CM FDA Start: 07-20-2018 AAA repair with graft GRAFT SUSAN SHIELD [id number] FDA Start: 07-20-2018 AAA repair with graft IR STENT S MART 9 X 40 120 CM FDA Start: 07-20-2018 AAA repair with graft GRAFT SUSAN SHIELD [id number] FDA Start: 07-20-2018 AAA repair with graft IR STENT S MART 9 X 40 120 CM FDA Start: 07-20-2018 AAA repair with graft GRAFT SUSAN SHIELD [id number] FDA Start: 07-20-2018 AAA repair with graft IR STENT S MART 9 X 40 120 CM FDA Start: 07-20-2018 AAA repair with graft GRAFT SUSAN SHIELD [id number] FDA Start: 07-20-2018 AAA repair with graft IR STENT S MART 9 X 40 120 CM FDA Start: 07-20-2018 AAA repair with graft GRAFT SUSAN SHIELD [id number] FDA Start: 07-20-2018 AAA repair with graft IR STENT S MART 9 X 40 120 CM FDA Start: 07-20-2018 AAA repair with graft GRAFT SUSAN SHIELD [id number] FDA Start: 07-20-2018 AAA repair with graft IR STENT S MART 9 X 40 120 CM FDA Start: 07-20-2018 AAA repair with graft GRAFT SUSAN SHIELD [id number] FDA Start: 07-20-2018 AAA repair with graft IR STENT S MART 9 X 40 120 CM FDA Start: 07-20-2018 AAA repair with graft GRAFT SUSAN SHIELD [id number] FDA Start: 07-20-2018 AAA repair with graft IR STENT S MART 9 X 40 120 CM FDA Start: 07-20-2018 AAA repair with graft GRAFT SUSAN SHIELD [id number] FDA Start: 07-20-2018 AAA repair with graft IR STENT S MART 9 X 40 120 CM FDA Start: 07-20-2018 AAA repair with graft GRAFT SUSAN SHIELD [id number] FDA Start: 07-20-2018 AAA repair with graft IR STENT S MART 9 X 40 120 CM FDA Start: 07-20-2018 AAA repair with graft GRAFT SUSAN SHIELD [id number] FDA Start: 07-20-2018 AAA repair with graft IR STENT S MART 9 X 40 120 CM FDA Start: 07-20-2018 AAA repair with graft GRAFT SUSAN SHIELD [id number] FDA Start: 07-20-2018 AAA repair with graft IR STENT S MART 9 X 40 120 CM FDA Start: 07-20-2018 AAA repair with graft GRAFT SUSAN SHIELD [id number] FDA Start: 07-20-2018 AAA repair with graft IR STENT S MART 9 X 40 120 CM FDA Start: 07-20-2018 AAA repair with graft GRAFT SUSAN SHIELD [id number] FDA Start: 07-20-2018 AAA repair with graft IR STENT S MART 9 X 40 120 CM FDA Start: 07-20-2018 AAA repair with graft GRAFT SUSAN SHIELD [id number] FDA Start: 07-20-2018 AAA repair with graft IR STENT S MART 9 X 40 120 CM FDA Start: 07-20-2018 AAA repair with graft GRAFT SUSAN SHIELD [id number] FDA Start: 07-20-2018 AAA repair with graft IR STENT S MART 9 X 40 120 CM FDA Start: 07-20-2018 AAA repair with graft GRAFT SUSAN SHIELD [id number] FDA Start: 07-20-2018 AAA repair with graft IR STENT S MART 9 X 40 120 CM FDA Start: 07-20-2018 AAA repair with graft GRAFT SUSAN SHIELD [id number] FDA Start: 07-20-2018 AAA repair with graft IR STENT S MART 9 X 40 120 CM FDA Start: 07-20-2018 AAA repair with graft GRAFT SUSAN SHIELD [id number] FDA Start: 07-20-2018 AAA repair with graft IR STENT S MART 9 X 40 120 CM FDA Start: 07-20-2018 AAA repair with graft GRAFT SUSAN SHIELD [id number] FDA Start: 07-20-2018 AAA repair with graft IR STENT S MART 9 X 40 120 CM FDA Start: 07-20-2018 AAA repair with graft GRAFT SUSAN SHIELD [id number] FDA Start: 07-20-2018 AAA repair with graft IR STENT S MART 9 X 40 120 CM FDA Start: 07-20-2018 AAA repair with graft GRAFT SUSAN SHIELD [id number] FDA Start: 07-20-2018 AAA repair with graft [...] 02/10/23 11:29:00 EDT, Weight Dosing Start: 02-10-2023 [facility] Prescription, See Instructions, 100 strip(s), 3, [...] Facility 04-09-2025 Functional status Patient at Baseline [facility] Work Phone: 02-26-2024 Functional Status No [facility] 02-26-2024 Functional Status [facility] 02-10-2024 Functional Status N/A [facility] 01-25-2024 Functional status Patient at Baseline [facility] Work Phone: Mental Status Date Assessment Result Facility 04-09-2025 Cognitive function Patient at Baseline [facility] Work Phone: 01-25-2024 Cognitive function Cognitive Sta tus Patient at Baseline [facility] Work Phone: Clinical Notes 11-11-2016 to 04-08-2025 Note Date & Type Note Facility 04-08-2025 Consult note Note Date/Time April 08, 2025 3:46pm [facility] [address] [place] [address] Cardiology Consult Note Signed Patient: Lexi Tatum MR#: [id number] : 1945 Acct:[id number] Age/Sex: 79 / F Adm Date: 5 Loc: Room: [address] [place] [address] Type: ADM IN Attending Dr: Mateo Schaeffer [...] with Dr. 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 She presented to the [facility] and had a perfusion study that was low risk forPE, but she was found to have BNP of over 6500 and significant lower extremity edema. Her troponin was initially mildly elevated at 66, but it has stablized and down-trended to 48. Chest x-ray cannot be viewed from the [facility]. Shehas been hemodynamically stable, and she [...] Friday to follow-upwith cardiology for ongoing management [facility] Medical History (Updated 04/08/25 @ 01:01 by [...] with insertion of prosthetic lens History of uqlzn-ucilc-tqgudpa bypass History of renal stent History of [...] x10E3/uL Lymph # (Auto) 1.2 (1.00-4.8) x10E3/uL [place] # (Auto) 0.7 (0.0-0.8) x10E3/uL Eos # [...] Code(s): I25.10 - Atherosclerotic heart disease of [place] coronary artery without angina pectoris (3) CKD [...] signed by RES Mare Nazario> 04/08/25 1400 [facility] Work Phone: 1(137) 896-813109-26-2025 Progress note Author Mateo Schaeffer [facility] Note Date/Time April 08, 2025 1:[facility] [address] [place] [address] Hospitalist Progress Note Signed Patient: Lexi Tatum MR#: [id number] : 1945 Acct:[id number] Age/Sex: 79 / F Adm Date: 5 Loc: Room: [address] [place] [address] Type: ADM IN Attending Dr: Mateo Schaeffer [...] of care and confirmed it with 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 Pt evaluated at bedside today. No acute [...] Mg/4 Ml Vial IV-PUSH 04/08/26 07:59 BID@0800,1600 [facility] Gabapentin 300 mg 04/08/25 09:00 04/08/25 08:46 [...] ordered ? Cardiology consulted, she follows with [facility] but has not seen a patient sitter since Dr. Morales retired ? Strict I's and O's ? Daily weights (2) Coronary artery disease: ? Her troponin were mildly elevated at 66 at [facility], have decreased to 61 withtoday's early labs [...] signed by Mateo Schaeffer MD> 04/08/25 1331 [facility] Work Phone: 1(164) 881-326309-26-2025 History and physical note Author Juice Mackenzie [facility] Note Date/Time April 08, 2025 1:05am [facility] [address] [place] [address] Hospitalist H&P Signed Patient: Lexi Tatum MR#: [id number] : 1945 Acct:[id number] Age/Sex: 79 / F Adm Date: 5 Loc: Room: [address] [place] [address] Type: ADM IN Attending Dr: Juice Mackenzie [...] room. She was evaluated emergency room at [facility], found to have elevated BNP with lower extremity edema and congestion on her chest x-ray, she was diagnosed with acute CHF. Due to concernfor a PE, her creatinine did preclude a CTA of her chest so a VQ scan was performed in emergency room and showed low probability for PE. Due to there notbeing any patient sitter at [facility], she was subsequently transferred here for evaluation. Review of Systems Review of Systems All other systems reviewed & are negative unless noted below or in HPI [facility] Medical History (Updated 04/08/25 @ 01:01 by [...] with insertion of prosthetic lens History of cnivf-awgda-brcsytm bypass History of renal stent History of [...] (1) CHF exacerbation: Plan: ? Admit to [facility], inpatient status with telemetry ? Physical exam [...] [facility] but has not seen a patient sitter since Dr. Morales retired ? Strict I's [...] troponin were mildly elevated at 66 at [facility], we will trend this upon admission here [...] signed by Juice Mackenzie DO> 04/08/[address] [facility] Work Phone: 1(260) 887-178507-21-2025 Evaluation note* Diagnosis Onset Date Resolution Status [...] kidney disease resolved April 07, 2025 11:35pm [facility] Work Phone: 1(328) 843-378507-01-2025 Evaluation note* Diagnosis Onset Date Resolution Status [...] kidney disease acute February 08, 2025 3:30pm [facility] Work Phone: 1(127) 980-400607-01-2025 Evaluation note* Diagnosis Onset Date Resolution Status [...] left hip acute March 09, 2025 2:04pm [facility] Work Phone: 1(316) 431-594607-01-2025 Evaluation note* Diagnosis Onset Date Resolution Status [...] arthroplasty acut e March 21, 2025 10:00am [facility] Work Phone: 1(242) 883-152007-01-2025 Evaluation note* Diagnosis Onset Date Resolution Status [...] hyperglycemia acute March 22, 2 025 5:26pm [facility] Work Phone: 1(318) 700-487907-01-2025 Evaluation note* Diagnosis Onset Date Resolution Status [...] arthroplasty acut e April 06, 2025 2:07pm [facility] Work Phone: 1(640) 474-936607-01-2025 Evaluation note* Diagnosis Onset Date Resolution Status [...] kidney disease acute April 07, 2025 11:35pm [facility] Work Phone: 1(156) 240-450805-05-2025 Evaluation note* Diagnosis Onset Date Resolution Status Admit Date UTI (urinary tract infection ), bacterial acute November 15, 2024 3: 16pm [facility] Work Phone: 1(182) 205-519105-05-2025 Evaluation note* Diagnosis Onset Date Resolution Status [...] hyperglycemia acute January 11, 2025 3 :11pm [facility] Work Phone: 1(320) 203-754105-05-2025 Evaluation note* Diagnosis Onset Date Resolution Status [...] kidney disease acute February 08, 2025 3:30pm [facility] Work Phone: 1(840) 494-910303-24-2025 Evaluation note* Diagnosis Onset Date Resolution Status [...] 3: 16pm [facility] Work Phone: 1(298) 397-577003-24-2025 Evaluation note* Diagnosis Onset Date Resolution Status Admit Date CKD (chronic kidney disease) stage 4, GFR 15-29 ml/min acute October 04, 2024 3:28pm Hypertension acute October 04, 2024 3:28pm Osteoarthritis of left hip acute October 04, 2024 3:28pm UTI (urinary tract infection ), bacterial acute October 04, 2024 3:28pm Weakness acute October 04 3:28pm [facility] Work Phone: 1(130) 735-979401-30-2025 Evaluation + Plan note* Assessment & Plan Note - SHAWANDA Parham - 08/12/2024 9:45 AM ESTAssociated Problem(s): BMI 33.0-33.9,adult Reviewed the merits of healthy lifestyle choices on overall cardiovascular health. [facility] Work Phone: 1(953) 107-249001-30-2025 Evaluation + Plan note* Assessment & Plan Note - SHAWANDA Parham - 08/12/2024 9:45 AM ESTAssociated Problem(s): Type 2 diabetes mellitus On WILLIAMS/statin Recent hemoglobin A1c 8.2 [facility] Work Phone: [phone]) 764-615501-30-2025 Evaluation + Plan note* Assessment & Plan Note - SHAWANDA Parham - 08/12/2024 9:45 AM ESTAssociated Problem(s): PVD (peripheral vascular disease) ([facility]) She has extensive history of peripheral arterial disease including July 2018 open AAA repair 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 Chanel retired. During January 2024 hospitalization for hydronephrosis she had a CT of the abdomen that was unremarkable in regards to aortic aneurysm. 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 documented in this [facility] Work Phone: 1(381) 674-634701-30-2025 Evaluation + Plan note* Assessment & Plan Note - SHAWANDA Parham - 08/12/2024 9:43 AM ESTAssociated Problem(s): Ischemic cardiomyopathy Ischemic cardiomyopathy heart failure borderline ejection fraction 48% October 2023 MPI Currently no SGLT2 due to acute kidney injury during hospitalization 2023 [facility] Work Phone: [phone]) 335-407601-30-2025 Evaluation + Plan note* Assessment & Plan Note - SHAWANDA Parham - 08/12/2024 9:42 AM ESTAssociated Problem(s): Hyperlipidemia Moderate intensity statin [facility] Work Phone: [phone]) 344-516601-30-2025 Evaluation + Plan note* Assessment & Plan Note - SHAWANDA Parham - 08/12/2024 9:41 AM ESTAssociated Problem(s): HTN (hypertension) Asymptomatic hypotension noted in the office today. [facility] Work Phone: 1(180) 704-727701-30-2025 Evaluation + Plan note* Assessment & Plan Note - SHAWANDA Parham - 08/12/2024 9:41 AM ESTAssociated Problem(s): CAD, multiple vessel November 2016 CABG x 15 June 2017 cardiac cath Distal/mid RCA PCI/GURU x 2 HACKETT-LAD was patent Sequential saphenous vein graft from PDA-OM was occluded LVEF 45% October 2023 MPI no ischemia, no infarct. EF 48%. Current daily activity less than 4 METS. 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 [place], [place] Please excuse any errors in grammar or translation related to this dictation. Voice recognition software was utilized to prepare this document. documented in this [facility] Work Phone: 1(274) 236-778801-29-2025 Instructions* Patient Instructions* SHAWANDA Parham - 08/11/2024 [...] annual unless abnormal testing documented in this [facility] Work Phone: 1(475) 794-364001-21-2025 Evaluation note* Diagnosis Onset Date Resolution Status [...] kidney disease acute August 03, 2024 10:50am [facility] Work Phone: [phone] 471-277001-21-2025 Evaluation note* Diagnosis Onset Date Resolution Status [...] 2024 3:28pm Weakness acute October 04 3:28pm [facility] Work Phone: 1([phone]) 420-635912-19-2024 Evaluation note* Diagnosis Onset Date Resolution Status [...] disease acute August 03, 2024 10:50am [facility] Work Phone: [phone]) [phone] Evaluation note* Diagnosis Onset Date Resolution Status [...] disease acute August 03, 2024 10:50am [facility] Work Phone: [phone] Evaluation note* Diagnosis Onset Date Resolution Status [...] wit h hyperglycemia acute July 01 10:55am [facility] Work Phone: [phone] Evaluation note* Diagnosis Onset Date Resolution Status [...] kidney disease acute August 03, 2024 10:50am [facility] Work Phone: 1([phone]) [phone] Evaluation note* Diagnosis Onset Date Resolution Status [...] 2024 10:09am [facility] Work Phone: [phone] Evaluation note* Diagnosis Onset Date Resolution Status [...] tract infection) acute May 25, 2024 10:32am [facility] Work Phone: 1([phone]) 546-526408-22-2024 NoteMicrobiology PROCEDURE: Blood Culture Charcoal [R1] SOURCE: Blood BODY SITE: Hand L COLLECTED DATE/TIME: 02/26/2024 19:07 EDT RECEIVED DATE/TIME: 02/26/2024 20:12 EDT START DATE/TIME: 02/26/2024 20:12 EDT FREE TEXT SOURCE: KADE MARLOW, Allison CHANCE MD, Allison FINAL REPORTS Final Report [] Verified Date/Time: 03/04/2024 21:00 EDT No growth at 7 days. Performing Locations R1: This [facility] performed at: [facility], [address] [place] [address], [id number] [place] [address], [address] Ford StreetComment on above:Performed By: #### [id number] #### [address] [id number] NoteMicrobiology PROCEDURE: Blood Culture Charcoal [R1] SOURCE: Blood BODY SITE: Hand R COLLECTED DATE/TIME: 02/26/2024 19:07 EDT RECEIVED DATE/TIME: 02/26/2024 20:12 EDT START DATE/TIME: 02/26/2024 20:12 EDT FREE TEXT SOURCE: KADE MARLOW, Allison CHANCE MD, Allison FINAL REPORTS Final Report [] Verified Date/Time: 03/04/2024 21:00 EDT No growth at 7 days. Performing Locations R1: This test was performed at: [facility], [address] [place] [address], [id number] [place] [address], [address] [place], [place] [address]Comment on above:Performed By: #### [id number] #### [facility] [address] [place] [address] [id number] Hospital Discharge instructions Patient Education 02/29/2024 14:58:25 [...] Follow these instructions at home: Medicines Take obld-tcq-fwqjrkk and prescription medicines only as told by [...] follow-up visits. Where to find more information [place] [employer] Patients: www.aakp.org National Kidney Foundation: www.kidney.org [employer]: www.akfinc.org Medical Education [place]: ?LifeOptions: www.lifeoptions.org ?Kidney School: www.kidneyschool.org Contact a health care provider if: Your symptoms get worse. You have new symptoms such as: ?Headaches. ?Skin that is darker or physical therapy assistant than normal. ?Easy bruising. ?Itchiness. ?Hiccups. ?Lack [...] provider. Document Revised: 10/07/2022 Document Reviewed: 05/09/2020 [employer] Patient Education 2022 Shared Performance. 02/29/2024 14:58:22 Sepsis, Diagnosis, Adult Sepsis, Diagnosis, [...] Follow these instructions at home: Medicines Take nahu-uwy-bwcjgpa and prescription medicines only as told by [...] provider. Document Revised: 05/14/2021 Document Reviewed: 05/14/2021 [employer] Patient Education 2022 Shared Performance. Follow Up Care 02/26/2024 17:29:51 With:STEFAN BEST Address: [address] [place] [address] Business (1) When:03/05/2024 13:45:00 [facility] 08-18-2024 NoteDischarge Summary Admission and Discharge Information Admit Date/Time:02/26/2024 18:07 Admitting Physician - Allison CHANCE MD Admitting Diagnoses: Discharge Order Date Discharge with Home Health - Ordered -- 02/29/24 13:39:00 EDT, [facility] after 5:15pm if afebrile Discharge Diagnoses [...] suprapubic pain. She was subsequently admitted to [facility] with acute metabolic encephalopathy secondary to sepsis [...] physical therapy. Initially physical therapy had recommended assisted facility placement but patient was hesitant and [...] Discharge Disposition Discharge To, Anticipated II - [facility] Unit Discharged to - Home with home [...] enteric coated t (more content not included)... [facility]healthComment on above:Result Comment: Electronically Signed By: Allison CHANCE MD\.br\Date and Time Signed: 02/29/24 16:44 EDT 02-29-2024 NoteProgress Note-Nurse Report called to Vincent Delgado, pickling operator. Discharge paperwork provided to patient and .[facility]08-18-2024 Evaluation + Plan note Extracted from: Title:Discharge Note Author:Allison CHANCE MD ate:02/29/24 Stable Discharge To, Anticipated II - [facility] Unit Discharged to - Home with home [...] 1 tab(s), Chewed, Daily Vitamin D Oral, [address] [facility], Oral, Daily With When Contact Information STEFAN BEST 03/05/2024 01:45 PM EDT [address] [facility] (1) Additional Instructions: [...] present on admission. Resolved. Ordered: Neurological Assessment [facility] Hospital Care/Day Moderate 35 Minutes 75811 2. Sepsis (A41.9: Sepsis, unspecified organism) Sepsis secondary to urinary tract infection present on admission. Resolved. Urine cultures isolating gram-negative sabrina organisms. Blood cultures so far not isolating any organisms. Ordered: [facility] Hospital Care/Day Moderate 35 Minutes 60703 3. Urinary tract infection (N39.0: Urinary tract infection, site not specified) Gram-negative sabrina urinary tract infection present on admission. Treated with IV ceftriaxone and will transition to oral antibiotics at discharge. Ordered: [facility] Hospital Care/Day Moderate 35 Minutes 10069 4. Acute kidney injury (N17.9: Acute kidney failure, unspecified) Acute kidney injury on chronic kidney disease secondary to ATN from above sepsis and UTI. Resolved. Creatinine down to 1.5. Baseline creatinine 1.4 1.5 Avoid nephrotoxic drugs. Treated with IV fluids. Ordered: [facility] Hospital Care/Day Moderate 35 Minutes 65181 5. Elevated troponin (R79.89: Other specified abnormal findings of blood chemistry) Elevated troponin secondary to type II non-ST segment elevation myocardial infarction from above disease process. Troponin trended down. Patient has no chest pain. No further workup needed. Ordered: [facility] Hospital Care/Day Moderate 35 Minutes 49069 6. Hypoglycemia (E16.2: Hypoglycemia, unspecified) Secondary to [...] [place]ant [place] [facility] [place] 12. Class 3 severe obesity with serious comorbidity in adult (E66.01: Morbid (severe) obesity due to excess calories) Recommend therapeutic lifestyle modification changes. 13. Coronary artery disease (I25.10: Atherosclerotic heart disease of [place] coronary artery without angina pectoris) Status post CABG. Stable. Continue on Plavix, Coreg. 14. On deep vein thrombosis (DVT) prophylaxis (Z79.899: Other penitentiary (current) drug therapy) Heparin. Disposition: Discharging AM [...] made to ensure accuracy. However inadvertent computerized expense clerk errors may be present. Allison Chance. Hospitalist. [...] cultures. Ordered: Home Health Orders Neurological Assessment [facility] Hospital Care/Day Moderate 35 Minutes 30241 2. Sepsis (A41.9: Sepsis, unspecified organism) Sepsis secondary to urinary tract infection present on admission. Resolved. Treating with IV fluid, IV ceftriaxone. Blood cultures so far not isolating any organisms. Ordered: Home Health Orders [facility] Hospital Care/Day Moderate 35 Minutes 10627 3. Urinary tract infection (N39.0: Urinary tract infection, site not specified) Urinary tract infection present on admission. Treating with IV ceftriaxone pending final urine culture result. Ordered: [facility] Hospital Care/Day Moderate 35 Minutes 38002 4. Acute kidney injury (N17.9: Acute kidney failure, unspecified) Acute kidney injury on chronic kidney disease secondary to ATN from above sepsis and UTI. Resolved. Creatinine down to 1.5. Baseline creatinine 1.4 1.5 Avoid nephrotoxic drugs. Treating with IV fluids. Ordered: Basic Metabolic Panel eGFR Extra Lav Tube [facility] Hospital Care/Day Moderate 35 Minutes 38363 5. Elevated troponin (R79.89: Other specified abnormal findings of blood chemistry) Elevated troponin secondary to type II non-ST segment elevation myocardial infarction from above disease process. Troponin trended down. Patient has no chest pain. No further workup needed. Ordered: [facility] Hospital Care/Day Moderate 35 Minutes 76512 6. Hypoglycemia (E16.2: Hypoglycemia, unspecified) Secondary to [...] artery disease (I25.10: Atherosclerotic heart disease of [place] coronary artery without angina pectoris) Status post CABG. Stable. Continue on Plavix, Coreg. 14. On deep vein thrombosis (DVT) prophylaxis (Z79.899: Other penitentiary (current) drug therapy) Heparin. Disposition: Pending final urine culture result. I discussed the diagnosis and plan of care with the patient at the bedside. Moderate level of MDM based on addressing above issues. This documentation was transcribed using voice recognition software. Several attempts were made to ensure accuracy. However inadvertent computerized expense clerk errors may be present. Allison Chance. Hospitalist. [...] underlying disease process. Neurochecks. Follow cultures. Ordered: [facility] Hospital Care/Day Moderate 35 Minutes 19610 2. Sepsis (A41.9: Sepsis, unspecified organism) Sepsis secondary to urinary tract infection present on admission. Treating with IV fluid, IV ceftriaxone. Follow cultures. Ordered: [facility] Hospital Care/Day Moderate 35 Minutes 97502 3. Urinary tract infection (N39.0: Urinary tract infection, site not specified) Urinary tract infection present on admission. Treating with IV ceftriaxone pending final urine culture result. Ordered: [facility] Hospital Care/Day Moderate 35 Minutes 25781 4. Acute kidney injury (N17.9: Acute kidney failure, unspecified) Acute kidney injury on chronic kidney disease secondary to ATN from above sepsis and UTI. Avoid nephrotoxic drugs. Treating with IV fluids. Repeat BMP in AM. Ordered: Basic Metabolic Panel [facility] Hospital Care/Day Moderate 35 Minutes 45519 5. Elevated troponin (R79.89: Other specified abnormal findings of blood chemistry) Elevated troponin secondary to type II non-ST segment elevation myocardial infarction from above disease process. Troponin trended down. Patient has no chest pain. No further workup needed. Ordered: [facility] Hospital Care/Day Moderate 35 Minutes 47675 6. Generalized weakness (R53.1: Weakness) Secondary to [...] artery disease (I25.10: Atherosclerotic heart disease of [place] coronary artery without angina pectoris) Status post CABG. Stable. Continue on Plavix, Coreg. Will verify aspirin. 13. On deep vein thrombosis (DVT) prophylaxis (Z79.899: Other penitentiary (current) drug therapy) Heparin. Orders: acetaminophen, 650 [...] made to ensure accuracy. However inadvertent computerized expense clerk errors may be present. Allison Chance. Hospitalist. [...] artery disease (I25.10: Atherosclerotic heart disease of [place] coronary artery without angina pectoris) Status post CABG: Stable. On aspirin, Plavix, will resume Coreg with hold parameters. 9. On deep vein thrombosis (DVT) prophylaxis (Z79.899: Other penitentiary (current) drug therapy) Heparin. Disposition: The patient [...] made to ensure accuracy. However inadvertent computerized expense clerk errors may be present. Allison Chance. Hospitalist. [...] Vital Signs Vital Signs Vital Signs Weight [facility] 08-18-2024 NoteProgress Note-Physician Assessment/Plan 78-year-old female with [...] injury?present on admission. Resolved. Ordered: Neurological Assessment [facility] Hospital Care/Day Moderate 35 Minutes 57662 2. Sepsis (A41.9: Sepsis, unspecified organism) Sepsis?secondary to urinary tract infection?present on admission. Resolved. Urine cultures isolating gram-negative sabrina organisms. Blood cultures so far not isolating any organisms. Ordered: [facility] Hospital Care/Day Moderate 35 Minutes 23843 3. Urinary tract infection (N39.0: Urinary tract infection, site not specified) Gram-negative sabrina urinary tract infection?present on admission. Treated with IV ceftriaxone and will transition to oral antibiotics at discharge. Ordered: [facility] Hospital Care/Day Moderate 35 Minutes 39565 4. Acute kidney injury (N17.9: Acute kidney failure, unspecified) Acute kidney injury on chronic kidney disease?secondary to ATN from above sepsis and UTI. Resolved. Creatinine down to 1.5. Baseline creatinine 1.4?1.5 Avoid nephrotoxic drugs. Treated with IV fluids. Ordered: [facility] Hospital Care/Day Moderate 35 Minutes 67017 5. Elevated troponin (R79.89: Other specified abnormal findings of blood chemistry) Elevated troponin?secondary to type II non-ST segment elevation myocardial infarction from above disease process. Troponin trended down. Patient has no chest pain. No further workup needed. Ordered: [facility] Hospital Care/Day Moderate 35 Minutes 48824 6. Hypoglycemia (E16.2: Hypoglycemia, unspecified) Secondary to [...] [place] intolerant [place] [facility] 12. Class 3 severe obesity with serious comorbidity in adult (E66.01: Morbid (severe) obesity due to excess calories) Recommend therapeutic lifestyle modification changes. 13. Coronary artery disease (I25.10: Atherosclerotic heart disease of [place] coronary artery without angina pectoris) Status post CABG. Stable. Continue on Plavix, Coreg. 14. 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 Disposition: Discharging AM [...] made to ensure accuracy. However inadvertent computerized expense clerk errors may be present. Allison Chance. Hospitalist. [...] (4) Oral Intake mL (more content not included)...[facility]healthComment on above:Result Comment: Electronically Signed By: KADE MARLOW, Allison\.br\Date and Time Signed: 02/29/24 08:54 [id number] NoteProgress Note-Physician Assessment/Plan 78-year-old female with diabetes [...] cultures. Ordered: Home Health Orders Neurological Assessment [facility] Hospital Care/Day Moderate 35 Minutes 53712 2. Sepsis (A41.9: Sepsis, unspecified organism) Sepsis?secondary to urinary tract infection?present on admission. Resolved. Treating with IV fluid, IV ceftriaxone. Blood cultures so far not isolating any organisms. Ordered: Home Health Orders [facility] Hospital Care/Day Moderate 35 Minutes 83721 3. Urinary tract infection (N39.0: Urinary tract infection, site not specified) Urinary tract infection?present on admission. Treating with IV ceftriaxone pending final urine culture result. Ordered: [facility] Hospital Care/Day Moderate 35 Minutes 32474 4. Acute kidney injury (N17.9: Acute kidney failure, unspecified) Acute kidney injury on chronic kidney disease?secondary to ATN from above sepsis and UTI. Resolved. Creatinine down to 1.5. Baseline creatinine 1.4?1.5 Avoid nephrotoxic drugs. Treating with IV fluids. Ordered: Basic Metabolic Panel eGFR Extra Lav Tube [facility] Hospital Care/Day Moderate 35 Minutes 94880 5. Elevated troponin (R79.89: Other specified abnormal findings of blood chemistry) Elevated troponin?secondary to type II non-ST segment elevation myocardial infarction from above disease process. Troponin trended down. Patient has no chest pain. No further workup needed. Ordered: [facility] Hospital Care/Day Moderate 35 Minutes 57283 6. Hypoglycemia (E16.2: Hypoglycemia, unspecified) Secondary to [...] artery disease (I25.10: Atherosclerotic heart disease of [place] coronary artery without angina pectoris) Status post CABG. Stable. Continue on Plavix, Coreg. 14. 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 Disposition: Pending final urine culture result. I discussed the diagnosis and plan of care with the patient at the bedside. Moderate level of MDM based on addressing above issues. This documentation was transcribed using voice recognition software. Several attempts were made to ensure accuracy. However inadvertent computerized expense clerk errors may be present. Allison Chance. Hospitalist. [...] feeling much better. Feeli (more content not included)...[facility] Comment on above:Result Comment: Electronically Signed By: KADE MARLOW, Allison\.br\Date and Time Signed: 02/28/24 08:54 [id number] NoteProgress Note-Physician Assessment/Plan 78-year-old female with diabetes [...] underlying disease process. Neurochecks. Follow cultures. Ordered: [facility] Hospital Care/Day Moderate 35 Minutes 05817 2. Sepsis (A41.9: Sepsis, unspecified organism) Sepsis?secondary to urinary tract infection?present on admission. Treating with IV fluid, IV ceftriaxone. Follow cultures. Ordered: [facility] Hospital Care/Day Moderate 35 Minutes 18530 3. Urinary tract infection (N39.0: Urinary tract infection, site not specified) Urinary tract infection?present on admission. Treating with IV ceftriaxone pending final urine culture result. Ordered: [facility] Hospital Care/Day Moderate 35 Minutes 48642 4. Acute kidney injury (N17.9: Acute kidney failure, unspecified) Acute kidney injury on chronic kidney disease?secondary to ATN from above sepsis and UTI. Avoid nephrotoxic drugs. Treating with IV fluids. Repeat BMP in AM. Ordered: Basic Metabolic Panel [facility] Hospital Care/Day Moderate 35 Minutes 77726 5. Elevated troponin (R79.89: Other specified abnormal findings of blood chemistry) Elevated troponin?secondary to type II non-ST segment elevation myocardial infarction from above disease process. Troponin trended down. Patient has no chest pain. No further workup needed. Ordered: [facility] Hospital Care/Day Moderate 35 Minutes 13448 6. Generalized weakness (R53.1: Weakness) Secondary to [...] artery disease (I25.10: Atherosclerotic heart disease of [place] coronary artery without angina pectoris) Status post CABG. Stable. Continue on Plavix, Coreg. Will verify aspirin. 13. On deep vein thrombosis (DVT) prophylaxis (Z79.899: Other penitentiary (current) drug therapy) Heparin. Orders: acetaminophen, 650 [...] 18:52:00 EDT, 02/26/24 18: (more content not included)...[facility]healthComment on above:Result Comment: Electronically Signed By: KADE MARLOW, Allison\.br\Date and Time Signed: 02/27/24 11:54 [id number] NoteProgress Note-Physician Assessment/Plan 78-year-old female with diabetes [...] underlying disease process. Neurochecks. Follow cultures. Ordered: [facility] Hospital Care/Day Moderate 35 Minutes 56089 2. Sepsis (A41.9: Sepsis, unspecified organism) Sepsis?secondary to urinary tract infection?present on admission. Treating with IV fluid, IV ceftriaxone. Follow cultures. Ordered: [facility] Hospital Care/Day Moderate 35 Minutes 36387 3. Urinary tract infection (N39.0: Urinary tract infection, site not specified) Urinary tract infection?present on admission. Treating with IV ceftriaxone pending final urine culture result. Ordered: [facility] Hospital Care/Day Moderate 35 Minutes 66970 4. Acute kidney injury (N17.9: Acute kidney failure, unspecified) Acute kidney injury on chronic kidney disease?secondary to ATN from above sepsis and UTI. Avoid nephrotoxic drugs. Treating with IV fluids. Repeat BMP in AM. Ordered: Basic Metabolic Panel [facility] Hospital Care/Day Moderate 35 Minutes 64561 5. Elevated troponin (R79.89: Other specified abnormal findings of blood chemistry) Elevated troponin?secondary to type II non-ST segment elevation myocardial infarction from above disease process. Troponin trended down. Patient has no chest pain. No further workup needed. Ordered: [facility] Hospital Care/Day Moderate 35 Minutes 55779 6. Generalized weakness (R53.1: Weakness) Secondary to [...] artery disease (I25.10: Atherosclerotic heart disease of [place] coronary artery without angina pectoris) Status post CABG. Stable. Continue on Plavix, Coreg. Will verify aspirin. 13. 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 Orders: acetaminophen, 650 [...] 18:52:00 EDT, 02/26/24 18: (more content not included)...[facility]healthComment on above:Result Comment: Electronically Signed By: KADE MARLOW, Allison\.br\Date and Time Signed: 02/27/24 09:45 [id number] NoteHistory and Physical Chief Complaint To ED [...] reviewed in the emergency room by the patient sitter who said the patient was not having [...] Lymph Auto: 8.4 % Low (02/26/24 17:30:00) [place] Auto: 7.9 % (02/26/24 17:30:00) Eos Auto: 0.5 % (02/26/24 17:30:00) Basophil Auto: 1 % (02/26/24 17:30:00) Neutro Absolute: 10.5 E9/L High (02/26/24 17:30:00) Lymph Absolute: 1.1 E9/L (02/26/24 17:30:00) [place] Absolute: 1 E9/L (02/26/24 17:30:00) Eos Absolute: [...] reviewed by me: N (more content not included)...[facility]healthComment on above:Result Comment: Electronically Signed By: KADE MARLOW, Allison\.br\Date and Time Signed: 02/26/24 19:01 [id number] Hospital Discharge instructions Patient Education 02/10/2024 16:20:39 [...] transplant. Follow these instructions at home: Take ontn-hap-hkvrzoo and prescription medicines only as told by [...] provider. Document Revised: 10/17/2020 Document Reviewed: 10/17/2020 [employer] Patient Education 2022 Shared Performance. Follow Up Care 01/26/2024 09:56:54 With:DELGADO MARLOW, Yaniv Vela, URL Address: [facility] [employer] [address] [address]- When: Unknown [facility] [place] 07-30-2024 NotePatient Education Urology Hydronephrosis Hydronephrosis is [...] Follow these instructions at home: ? Take ukzh-wjf-uaepnlz and prescription medicines only as told by [...] provider. Document Revised: 10/17/2020 Document Reviewed: 10/17/2020 [employer] Patient Education ? 2022 Shared Performance.[facility] 01-25-2024 Progress note Author Gita Azevedo [facility] January 25, 2024 11:30am Note Date/Time January 25, 2024 11:3 1am [facility] [address] [place] [address] Nephrology Progress Note Signed Patient: Lexi Tatum MR#: [id number] : 1945 Acct:[id number] Age/Sex: 78 / F Adm Date: 4 Loc: Room: [address] [place] [address] Type: ADM IN Attending Dr: Norberto Pires [...] 300 Mg Tablet) 300 mg PO DAILY [facility] Stop: 01/22/25 08:59 Last Admin: 01/25/24 08:29 Dose: 300 mg Atorvastatin Calcium (Atorvastatin 10 Mg Tablet) 10 mg PO QHS ERBA Stop: 01/21/25 21:59 Last Admin: 01/24/24 21:12 Dose: 10 mg Carvedilol (Carvedilol 25 Mg Tablet) 25 mg PO BID.WITH.MEALS [facility] Stop: 01/21/25 19:04 Last Admin: 01/25/24 08:29 Dose: 25 mg Dextrose (Dextrose 50% In Water 25 Gm/50 Ml Syringe) 0 gm IV-PUSH PRN PRN PRN Reason: Hypoglycemia Stop: 01/21/25 18:58 Docusate Sodium (Docusate 100 Mg Capsule) 100 mg PO BID [facility] Stop: 01/21/25 20:59 Last Admin: 01/25/24 08:30 Dose: 100 mg Furosemide (Furosemide 40 Mg Tablet) 40 mg PO DAILY.8A [facility] Stop: 01/25/25 07:59 Gabapentin (Gabapentin 300 Mg Capsule) 300 mg PO BID [facility] Stop: 01/21/25 20:59 Last Admin: 01/25/24 08:29 Dose: 300 mg Glucose (Dextrose 40% Gel 15 Gm Tube) 0 gm PO PRN PRN PRN Reason: Hypoglycemia Stop: 01/21/25 18:58 Heparin Sodium (Porcine) (Heparin 5,000 Unit/Ml Vial) 5,000 unit SUBCUT Q12HR [facility] Stop: 01/22/25 20:59 Last Admin: 01/24/24 09:07 Dose: 5,000 unit Hydralazine HCl (Hydralazine 20 Mg/Ml Vial) 10 mg IV-PUSH Q4H PRN PRN Reason: Hypertension Stop: 01/21/25 18:58 Insulin Aspart (Insulin Aspart 300 Units/3 Ml Insuln.Pen) 0 units SUBCUT TID.WM.HS [facility]; Protocol Stop: 01/21/25 21:59 Last Admin: 01/25/24 08:30 Dose: Not Given Insulin Glargine (Insulin Glargine 300 Units/3 Ml Insuln.Pen) 50 units SUBCUT QPM [facility] Stop: 01/23/25 20:59 Last Admin: 01/24/24 21:12 Dose: 50 units Magnesium Hydroxide (Magnesium Hydroxide Susp 30 Ml Udc) 30 ml PO BID PRN PRN Reason: Constipation Stop: 01/21/25 18:58 Metoprolol Tartrate (Metoprolol Tartrate 5 Mg/5 Ml Vial) 5 mg IV-PUSH Q4H PRN PRN Reason: Blood Pressure Stop: 01/21/25 18:58 Oxybutynin Chloride (Oxybutynin Chloride 5 Mg Tab.Er.24) 15 mg PO DAILY [facility] Stop: 01/22/25 08:59 Last Admin: 01/25/24 08:29 [...] signed by MD Gita Azevedo> 01/25/[address] [facility] Work Phone: 1(200) 524-926907-13-2024 Progress note Author Norberto Pires [facility] January 24, 2024 2:31pm Note Date/Time January 24, 2024 2:25 pm [facility] [address] [place] [address] Hospitalist Progress Note Signed Patient: Lexi Tatum MR#: [id number] : 1945 Acct:[id number] Age/Sex: 78 / F Adm Date: 4 Loc: Room: [address] [place] [address] Type: ADM IN Attending Dr: Norberto Pires DO Copies to: ~ Date of Service: 01/24/2024 Subjective Subjective Narrative: Overnight the patient did develop hematuria. This never had any clots. She hasnot had any difficulty voiding urine. Her beet colored urine was collected in the adQ collection system. Just before my visit with [...] signed by Norberto Pires DO> 01/24/24 1431 [facility] Work Phone: 1(527) 454-699007-13-2024 Progress note Author Gita Azevedo [facility] January 24, 2024 12:21pm Note Date/Time January 24, 2024 12:2 2pm [facility] [address] [place] [address] Nephrology Progress Note Signed Patient: Lexi Tatum MR#: [id number] : 1945 Acct:[id number] Age/Sex: 78 / F Adm Date: 4 Loc: Room: [address] [place] [address] Type: ADM IN Attending Dr: Norberto Pires [...] 300 Mg Tablet) 300 mg PO DAILY [facility] Stop: 01/22/25 08:59 Last Admin: 01/24/24 09:08 Dose: 300 mg Atorvastatin Calcium (Atorvastatin 10 Mg Tablet) 10 mg PO QHS REBA Stop: 01/21/25 21:59 Last Admin: 01/23/24 22:43 Dose: Not Given Carvedilol (Carvedilol 25 Mg Tablet) 25 mg PO BID.WITH.MEALS [facility] Stop: 01/21/25 19:04 Last Admin: 01/24/24 09:08 Dose: 25 mg Dextrose (Dextrose 50% In Water 25 Gm/50 Ml Syringe) 0 gm IV-PUSH PRN PRN PRN Reason: Hypoglycemia Stop: 01/21/25 18:58 Docusate Sodium (Docusate 100 Mg Capsule) 100 mg PO BID [facility] Stop: 01/21/25 20:59 Last Admin: 01/24/24 09:08 Dose: 100 mg Gabapentin (Gabapentin 300 Mg Capsule) 300 mg PO BID [facility] Stop: 01/21/25 20:59 Last Admin: 01/24/24 09:08 Dose: 300 mg Glucose (Dextrose 40% Gel 15 Gm Tube) 0 gm PO PRN PRN PRN Reason: Hypoglycemia Stop: 01/21/25 18:58 Heparin Sodium (Porcine) (Heparin 5,000 Unit/Ml Vial) 5,000 unit SUBCUT Q12HR [facility] Stop: 01/22/25 20:59 Last Admin: 01/24/24 09:07 Dose: 5,000 unit Hydralazine HCl (Hydralazine 20 Mg/Ml Vial) 10 mg IV-PUSH Q4H PRN PRN Reason: Hypertension Stop: 01/21/25 18:58 Sodium Chloride (0.9% Sodium Chloride 1,000 Ml) 1,000 mls @ 75 mls/hr IV .[id number] [facility] Stop: 01/21/25 18:59 Last Admin: 01/23/24 20:12 Dose: 100 mls/hr Insulin Aspart (Insulin Aspart 300 Units/3 Ml Insuln.Pen) 0 units SUBCUT TID.WM.[facility]; Protocol Stop: 01/21/25 21:59 Last Admin: 01/24/24 09:09 Dose: 3 units Insulin Glargine (Insulin Glargine 300 Units/3 Ml Insuln.Pen) 25 units SUBCUT QPM [facility] Stop: 01/21/25 20:59 Last Admin: 01/23/24 22:52 [...] Rhett Ponce M.D.01/23/2024 7:31 PM Dictation Location: [place] [address] Any impression(s) listed above is documentation that [...] evaluation of ureteral compression. Documented By: Gita zAevedo MD 01/24/24 1215 Signed By: <Electronically signed by MD Gita Azevedo> 01/24/24 1221 [facility] Work Phone: 1(592) 312-447407-12-2024 Progress note Author Norberto Pires [facility] January 23, 2024 6:51pm Note Date/Time January 23, 2024 6:40 pm [facility] [address] [place] [address] Hospitalist Progress Note Signed Patient: Lexi Tatum MR#: [id number] : 1945 Acct:[id number] Age/Sex: 78 / F Adm Date: 4 Loc: Room: [address] [place] [address] Type: ADM IN Attending Dr: Norberto Pires [...] 1,000 Ml IV 01/21/25 18:59 100 mls/hr .[id number] REBA Administration Lactated Ringer's 1,000 mls @ [...] the morning. Documented By: Norberto Pires DO 224 Signed By: <Electronically signed by Norberto Pires DO> 01/23/[address] [facility] Work Phone: 1(798) 795-598507-12-2024 Consult note Author Yaniv Natarajan [facility] January 23, 2024 3:44pm Note Date/Time January 23, 2024 3:44 pm [facility] [address] [place] [address] Urology Consult Note Signed Patient: Lexi Tatum MR#: [id number] : 1945 Acct:[id number] Age/Sex: 78 / F Adm Date: 4 Loc: Room: [address] [place] [address] Type: ADM IN Attending Dr: Norberto Pires [...] and P documented by Dr. Pires yesterday. [facility] Medical History (Updated 01/23/24 @ 10:50 by [...] % (Auto) 65.0, Lymph % (Auto) 23.9, [place] % (Auto) 6.8, Eos % (Auto) 3.7, Baso % (Auto) 0.6, Nucleat RBC Rel Count 0.1, Neut # (Auto) 5.3, Lymph # (Auto) 2.0, [place] # (Auto) 0.6, Eos # (Auto) 0.3, [...] % (Auto) 68.5, Lymph % (Auto) 21.7, [place] % (Auto) 5.2, Eos % (Auto) 3.3, Baso % (Auto) 1.3, Nucleat RBC Rel Count 0.2, Neut # (Auto) 6.1, Lymph # (Auto) 1.9, [place] # (Auto) 0.5, Eos # (Auto) 0.3, [...] Cloudy A, Urine pH 7.0, Ur Specific [place] 1.010, Urine Protein 50 H, Urine Glucose [...] aneurysm and iliac aneurysm repair in the distantwast. Whether or not she has external compression [...] <Electronically signed by MD Yaniv Natarajan> 01/23/[address] [facility] Work Phone: 1(742) 748-774407-12-2024 Consult note Author Gita Azevedo [facility] January 23, 2024 12:19pm Note Date/Time January 23, 2024 11:1 9am [facility] [address] [place] [address] Nephrology Consult Note Signed Patient: Lexi Tatum MR#: [id number] : 1945 Acct:[id number] Age/Sex: 78 / F Adm Date: 4 Loc: Room: [address] [place] [address] Type: ADM IN Attending Dr: Norberto Pires DO Copies to: MD Norberto Franco DO Marcia E Braun, MD~ Providers Consult Date: 01/23/24 Requesting Provider: Norberto Pires DO Primary Care Provider: Stefan Best MD [facility] Reason for Consult: CKD management History [...] negative unless noted below or in HPI [facility] Medical History (Updated 01/23/24 @ 10:50 by [...] 300 Mg Tablet) 300 mg PO DAILY [facility] Stop: 01/22/25 08:59 Last Admin: 01/23/24 07:59 Dose: 300 mg Atorvastatin Calcium (Atorvastatin 10 Mg Tablet) 10 mg PO QHS [facility] Stop: 01/21/25 21:59 Last Admin: 01/22/24 22:52 Dose: 10 mg Carvedilol (Carvedilol 25 Mg Tablet) 25 mg PO BID.WITH.MEALS [facility] Stop: 01/21/25 19:04 Last Admin: 01/23/24 07:59 Dose: 25 mg Dextrose (Dextrose 50% In Water 25 Gm/50 Ml Syringe) 0 gm IV-PUSH PRN PRN PRN Reason: Hypoglycemia Stop: 01/21/25 18:58 Docusate Sodium (Docusate 100 Mg Capsule) 100 mg PO BID [facility] Stop: 01/21/25 20:59 Last Admin: 01/22/24 22:53 [...] Ml) 1,000 mls @ 75 mls/hr IV .[id number] [facility] Stop: 01/21/25 18:59 Last Admin: 01/23/24 10:00 Dose: 100 mls/hr Insulin Aspart (Insulin Aspart 300 Units/3 Ml Insuln.Pen) 0 units SUBCUT TID.WM.HS [facility]; Protocol Stop: 01/21/25 21:59 Last Admin: 01/22/24 22:55 Dose: Not Given Insulin Glargine (Insulin Glargine 300 Units/3 Ml Insuln.Pen) 25 units SUBCUT QPM [facility] Stop: 01/21/25 20:59 Last Admin: 01/22/24 [...] Cloudy A Urine pH 7.0 Ur Specific [place] 1.010 Urine Protein 50 H Urine Glucose [...] Iraheta Jr., D.O.01/22/2024 4:28 PM Dictation Location: [place] [address] Any impression(s) listed above is documentation that [...] 01/23/24 1219 [facility] Work Phone: 1(518) 514-170307-11-2024 History and physical note Author Norberto Pires [facility] January 22, 2024 9:37pm Note Date/Time January 22, 2024 9:37 pm [facility] [address] [place] [address] Hospitalist H&P Signed Patient: Lexi Tatum MR#: [id number] : 1945 Acct:[id number] Age/Sex: 78 / F Adm Date: 4 Loc: Room: 4P5924-8 Type: ADM IN Attending Dr: Norberto Pires [...] 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 Review of Systems Review of Systems Review of systems: 10 systems are reviewed and are negative except as mentioned elsewhere in the documentation. [facility] Medical History (Updated 01/22/24 @ 21:34 by [...] % (Auto) 21.7 % (.) 01/22/24 15:18 [place] % (Auto) 5.2 % (.) 01/22/24 15:18 Eos % (Auto) 3.3 % (.) 01/22/24 15:18 Baso % (Auto) 1.3 % (.) 01/22/24 15:18 Nucleat RBC Rel Count 0.2 /100 WBC (0-0.5) 01/22/24 15:18 Neut # (Auto) 6.1 x10E3/uL (1.8-7.7) 01/22/24 15:18 Lymph # (Auto) 1.9 x10E3/uL (1.00-4.8) 01/22/24 15:18 [place] # (Auto) 0.5 x10E3/uL (0.0-0.8) 01/22/24 15:18 [...] pH 7.0 (5.0-9.0) 01/22/24 15:18 Ur Specific [place] 1.010 (1.001-1.030) 01/22/24 15:18 Urine Protein 50 [...] DO> 01/22/242136 [facility] Work Phone: 1(871) 957-557303-06-2024 History of Present illness Narrative* Shahrzad Morales MD - 09/17/2023 1:20 PM EST [...] normal. Allergies Williams inhibitors, Atorvastatin, Spironolactone, and Yojuwhe-dlx-riv reductase inhibitors Current Medications Current Outpatient Medications: [...] exam, discussion and [facility]. [facility]: 1([phone]) 213-603503-06-2024 Instructions* Patient Instructions* Kaleigh Funez LPN - [...] time of your visit. [facility] Work Phone: 1(779) 659-334302-27-2024 Note [id number]#1.00[facility] 09-09-2023 [id number]#1.00[facility]02-19-2024 [id number]#1.00[facility]01-31-2024 Evaluation note* Encounter Date Diagnosis Assessment Notes Treatment Notes Treatment Clinical Notes Jul, Primary osteoarthritis of left hip (ICD-10 - M16.12) Jul, Other We have provide d her a few names of [facility] physicians that are currently taking new patients [...] can see her 3 months after that. [facility] Other 09-14-2023 Evaluation note* Encounter Date Diagnosis [...] is considering changing from her current PCP [facility] Other 05-02-2023 Evaluation note* Encounter Date Diagnosis [...] Above note written by Ramandeep Aggarwal LPN, Director Speech. Edited and approved by Dr. Ross Colmenares [...] negative findings were considered in medical decision-making. [facility] Other 05-01-2017 History general Narrative - Reported* Type Description Date Medical History [place] Medical History Hyperlipiedmia Medical History PVD Medical History DM Medical History HTN Surgical History Open Heart 11/2016 Surgical History Cardiac Stent 09/2017 Surgical History Cardiac Stent 05/2017 Surgical History C- section 1960 Surgical History Rt iliac angioplasty & stent; Aortobiiliac bifurcation graft 07/20/18 Hospitalization History See above [place] [email or web address] Other Evaluation + Plan note Future Appointments Appointment Date:03/25/2023 01:00:00 PM Scheduled Provider: Location:[facility] App[facility]ment Type[facility] assessment information available [facility] Work Phone: Evaluhfjxh noteNo InformationNort [email or web address] Other Evgypation note* Diagnosis CAD, multiple vessel- Primary S/P CABG x 3 Postsurgical aortocoronary bypass status History of angioplasty Primary hypertension Unspecified essential hypertension Ischemic cardiomyopathy Other specified forms of chronic ischemic heart disease Mixed hyperlipidemia BMI 32.0-32.9,adult Former smoker Personal history of tobacco use, presenting hazards to health Occlusion and stenosis of right carotid artery Shortness of breath [facility] Work Phone: Evaluxefsc note* Diagnosis CAD, multiple vessel S/P CABG x 3 Postsurgical aortocoronary bypass status Ischemic cardiomyopathy Other specified forms of chronic ischemic heart disease Occlusion and stenosis of right carotid artery Shortness of breath documented in [facility] Work Phone: Evalumzmbo note* Diagnosis Onset Date Resolution Status Osteoarthritis of left hip a cute Type 2 diabetes mellitus with hyperglycemia acute UTI (urinary tract infection) acute Lumbar pain acute Osteoarthritis of left hip a cute Uncontrolled diabetes mellitus acute [facility] Work Phone: Evaluation note* Diagnosis Onset Date Resolution Status Osteoarthritis of left hip a cute Type 2 diabetes mellitus with hyperglycemia acute UTI (urinary tract infection) acute Lumbar pain acute Osteoarthritis of left hip a cute Uncontrolled diabetes mellitus acute OAB (overactive bladder) acu te Preoperative examination acu te Primary osteoarthritis of left hip acute Type 2 diabetes mellitus with hyperglycemia acute [facility] Work Phone: Evaluation note* Diagnosis Onset Date Resolution Status Lumbar pain acute Osteoarthritis of left hip a cute Uncontrolled diabetes mellitus acute OAB (overactive bladder) acu te Preoperative examination acu te Primary osteoarthritis of left hip acute Type 2 diabetes mellitus with hyperglycemia acute [facility] Work Phone: Evaluation note* Diagnosis Onset Date [...] 4, GFR 15-29 ml/min acute Hyperlipidemia acute [id number] acute Secondary hyperparathyroidism acute Type 2 diabetes mellitus wit h diabetic chronic kidney disease acute [facility] Work Phone: evaluation note* Diagnosis Onset Date [...] 15-29 ml/min acute Gout acute Hyperlipidemia acute [id number] acute Secondary hyperparathyroidism acute Type 2 diabetes [...] acute Hydroureter acute Hyperlipidemia acute Hypertension acute [id number] acute PAD (peripheral artery disease) acute Type [...] 15-29 ml/min acute Gout acute Hyperlipidemia acute [id number] acute Secondary hyperparathyroidism acute Type 2 diabetes mellitus wit h diabetic chronic kidney disease acute Anemia of renal disease acut e Bilateral hydronephrosis acu te CAD (coronary artery disease) acute CKD (chronic kidney disease) stage 4, GFR 15-29 ml/min acute CKD stage 4 due to type 2 diabetes mellitus acute History of coronary artery bypass graft acute Hydroureter acute Hyperlipidemia acute Hypertension acute [id number] acute PAD (peripheral artery disease) acute Type 2 diabetes mellitus wit h diabetic chronic kidney disease acute Type 2 diabetes mellitus with hyperglycemia acute Urinary obstruction, unspecified acute Acute kidney injury resolved [facility] Work Phone: Evaluation note* Diagnosis Onset Date Resolution Status Anemia acute CKD stage 4 due to type 2 diabetes mellitus acute OAB (overactive bladder) acu te Primary osteoarthritis of left hip acute Anemia of renal disease acut e CKD (chronic kidney disease) stage 4, GFR 15-29 ml/min acute Gout acute Hyperlipidemia acute [id number] acute Secondary hyperparathyroidism acute Type 2 diabetes mellitus wit h diabetic chronic kidney disease acute Anemia of renal disease acut e Bilateral hydronephrosis acu te CAD (coronary artery disease) acute CKD (chronic kidney disease) stage 4, GFR 15-29 ml/min acute CKD stage 4 due to type 2 diabetes mellitus acute History of coronary artery bypass graft acute Hydroureter acute Hyperlipidemia acute Hypertension acute [id number] acute PAD (peripheral artery disease) acute Type 2 diabetes mellitus wit h diabetic chronic kidney disease acute Type 2 diabetes mellitus with hyperglycemia acute Urinary obstruction, unspecified acute Acute kidney injury resolved Anemia of renal disease acut e CKD (chronic kidney disease) stage 4, GFR 15-29 ml/min acute Primary osteoarthritis of left hip acute [facility] Work Phone: Evaluation note* Diagnosis Onset Date Resolution Status Anemia of renal disease acut e CKD (chronic kidney disease) stage 4, GFR 15-29 ml/min acute Gout acute Hyperlipidemia acute [id number] acute Secondary hyperparathyroidism acute Type 2 diabetes mellitus wit h diabetic chronic kidney disease acute Anemia of renal disease acut e Bilateral hydronephrosis acu te CAD (coronary artery disease) acute CKD (chronic kidney disease) stage 4, GFR 15-29 ml/min acute CKD stage 4 due to type 2 diabetes mellitus acute History of coronary artery bypass graft acute Hydroureter acute Hyperlipidemia acute Hypertension acute [id number] acute PAD (peripheral artery disease) acute Type [...] type 2 diabetes mellitus acute Hyperlipidemia acute [id number] acute Secondary hyperparathyroidism acute Type 2 diabetes mellitus wit h diabetic chronic kidney disease acute [facility] Work Phone: Evaluation note* Diagnosis Onset Date Resolution Status Anemia of renal disease acut e CKD (chronic kidney disease) stage 4, GFR 15-29 ml/min acute Gout acute Hyperlipidemia acute [id number] acute Secondary hyperparathyroidism acute Type 2 diabetes mellitus wit h diabetic chronic kidney disease acute Anemia of renal disease acut e Bilateral hydronephrosis acu te CAD (coronary artery disease) acute CKD (chronic kidney disease) stage 4, GFR 15-29 ml/min acute CKD stage 4 due to type 2 diabetes mellitus acute History of coronary artery bypass graft acute Hydroureter acute Hyperlipidemia acute Hypertension acute [id number] acute PAD (peripheral artery disease) acute Type [...] 15-29 ml/min acute Gout acute Hyperlipidemia acute [id number] acute Proteinuria acute Secondary hyperparathyroidism acute Type 2 diabetes mellitus wit h diabetic chronic kidney disease acute [facility] Work Phone: Evaluation note* Diagnosis Onset Date Resolution Status Anemia of renal disease acut e CKD (chronic kidney disease) stage 4, GFR 15-29 ml/min acute Gout acute Hyperlipidemia acute [id number] acute Secondary hyperparathyroidism acute Type 2 diabetes mellitus wit h diabetic chronic kidney disease acute Anemia of renal disease acut e Bilateral hydronephrosis acu te CAD (coronary artery disease) acute CKD (chronic kidney disease) stage 4, GFR 15-29 ml/min acute CKD stage 4 due to type 2 diabetes mellitus acute History of coronary artery bypass graft acute Hydroureter acute Hyperlipidemia acute Hypertension acute [id number] acute PAD (peripheral artery disease) acute Type [...] 15-29 ml/min acute Gout acute Hyperlipidemia acute [id number] acute Proteinuria acute Secondary hyperparathyroidism acute Type [...] right carotid artery PVD (peripheral vascular disease) ([facility]) Unspecified peripheral vascular disease documented [facility] Work Phone: History of Present illness [...] are reviewed and felt to be satisfactory. [facility] 250 DO Work Phone: History of [...] are reviewed and felt to be satisfactory. -[facility] 250 DO Work Phone: History of Present [...] we suggest no change and follow-up as nezmjSD-Qkfnkwuhes-Dscmrydk 250 DO Work Phone: Hospital course Narrative No data available for this section [facility] Discharge instructions No data available for this section [facility] Discharge instructions Additional Instructions Joint Replacement Discharge Instructions Your safety during your recovery process is important to us. Please seek immediate emergency care if you have sudden chest pain or shortness of breath. Additionally, please call our office at [phone] should any of the following occur: wound [...] to walk without your walker and your acute care clinical nurse specialist until the therapist checks you the following [...] and/or laxatives as directed. You may take sdno-bfi-atsfvar Benadryl if itching occurs without a rash or hives. Icing and elevation will help relieve pain as well, do not underestimate the power of ice and elevation. We do recommend that you stop taking narcotic pain medications by 4-6 weeks after surgery and if necessary, continue to use anti-inflammatory medications such as Mobic (meloxicam), Celebrex (celecoxib), or an edbx-yjs-ohbfhwd medication (Aleve, Motrin, Ibuprofen, etc). Driving an [...] feel free to call our office at [phone]. You are a priority of ours and we will not be upset with you if you call. We would much rather you call to confirm aspects of your recovery process as opposed to possibly hindering your recovery with inappropriate care. We are committed to providing you with the best care possible. Da Lozano II, MD Updated 08/04/23[facility] Work Phone: Hospital Discharge instructionsAmbulatory Orders* Initiate Home Health Time Frame: 1 Day, Location: Determined By Patient Additional Instructions Home Health to manage care: - Full code - PT/OT eval and treat - Routine vital signs - Medication management and education - Fingerstick blood sugar [facility] Work Phone: Progress note No data available for this section [facility] Author Mateo Schaeffer [facility] Note Date/Time April 09, 2025 1:11pm [facility] [address] [place] [address] Hospitalist Progress Note Signed Patient: Lexi Tatum MR#: [id number] : 1945 Acct:[id number] Age/Sex: 79 / F Adm Date: Loc: 3T Room: 8W6959-9 Type: ADM IN Attending Dr: Mateo Schaeffer [...] of care and confirmed it with 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 Pt evaluated at bedside today. No acute [...] Tablet PO 04/08/26 15:09 Not Given DAILY [facility] Valsartan 40 mg 04/08/25 21:00 04/09/25 09:20 Valsartan 40 Mg Tablet PO 04/08/26 20:59 Not Given BID [facility] A&P - Hospitalist Assessment/Plan (1) CHF exacerbation: [...] troponin were mildly elevated at 66 at [place], have decreased to 61 withtoday's early labs [...] signed by Mateo Schaeffer MD> 04/09/[address] [facility] Work Phone: Reason for referral (narrative)* Consultation (Routine) - Authorized Specialty Diagnoses / Procedures Referred By Dimitri hartley Referred To Contact Cardiology Diagnoses Occlusion and stenosis of right carotid artery Procedures Follow Up In Cardiology Shahrzad Morales MD [address] [facility] [address], [address] [address] Angela Braun, [employer] [address] [facility], [address] [place] [address] Referral ID Status Reason Start Date Expiration Date V isits Requested Visits Authorized [id number] Authorized 09/17/2023 09/16/2024 1 1 * Cardiac Stress Testing (Routine) - Pending Review Specialty Diagnoses / Procedures Referred By Dimitri hartley Referred To Contact Radiology Diagnoses CAD, multiple vessel S/P CABG x 3 Ischemic cardiomyopathy Occlusion and stenosis of right carotid artery Shortness of breath Procedures Nuclear Stress Test CHG MYOCARDIAL SPECT MULTIPLE STUDIES Shahrzad Morales MD [address] [facility] [address], [address] [address] Referral ID Status Reason Start Date Expiration Date V isits Requested Visits Authorized [id number] Pending Review 09/17/2023 09/16/2024 5 5 [facility] Work Phone: Reason for referral (narrative)No reason for referral information availableR[facility] Work Phone: Refedm for visit NarrativeNEW SELF REFERRAL [facility] [email or web address] Other Summary Purpose Family History Unknown Family [...] Provider Specialty Pain Medici ne Referred Organization [facility] Referred Provider Da Lozano II Referred Address [address] [place], [place],[address] Referred Provider Specialty Orthopedic S urgery Referral [...] SPECT MULTIPLE STUDIES Shahrzad Morales MD [address] [facility], [address] [place] [address] Referral ID Status Reason Start Date Expiration Date V isits Requested Visits Authorized [id number] Pending Review 09/17/2023 09/16/2024 5 5 Chief [...] disease) stage 4, GFR 15-29 ml/min Hyperlipidemia [id number] Secondary hyperparathyroidism Type 2 diabetes mellitus with [...] stage 4, GFR 15-29 ml/min Gout Hyperlipidemia [id number] Secondary hyperparathyroidism Type 2 diabetes mellitus with diabetic chronic kidney disease Acute kidney injury Anemia of renal disease Bilateral hydronephrosis CAD (coronary artery disease) CKD (chronic kidney disease) CKD (chronic kidney disease) stage 4, GFR 15-29 ml/min CKD stage 4 due to type 2 diabetes mellitus History of CHF (congestive heart failure) History of coronary artery bypass graft Hydronephrosis Hydroureter Hyperlipidemia Hypertension [id number] PAD (peripheral artery disease) Type 2 diabetes mellitus with diabetic chronic kidney disease Type 2 diabetes mellitus with hyperglycemia Urinary obstruction, unspecified Chief Complaint presurgical clearenc e. lt total hip M16.12 Z79.899 M81.0 pre surgical testing results RENAL CKD [address] over [address] sunshine sent over [facility] f/u for stents in kidney Reason for Visit OAB (overactive blad edmund) Preoperative examination Primary osteoarthritis of left hip Type 2 diabetes mellitus with hyperglycemia Anemia CKD stage 4 due to type 2 diabetes mellitus OAB (overactive bladder) Primary osteoarthritis of left hip Anemia of renal disease CKD (chronic kidney disease) stage 4, GFR 15-29 ml/min Gout Hyperlipidemia [id number] Secondary hyperparathyroidism Type 2 diabetes mellitus with diabetic chronic kidney disease Anemia of renal disease Bilateral hydronephrosis CAD (coronary artery disease) CKD (chronic kidney disease) stage 4, GFR 15-29 ml/min CKD stage 4 due to type 2 diabetes mellitus History of coronary artery bypass graft Hydroureter Hyperlipidemia Hypertension [id number] PAD (peripheral artery disease) Type 2 diabetes mellitus with diabetic chronic kidney disease Type 2 diabetes mellitus with hyperglycemia Urinary obstruction, unspecified Acute kidney injury Chief Complaint pre surgical testing results RENAL CKD [address] dr [address] over [address] sunshine sent over [facility] f/[place] stents in [place] [facility] Acute metobolic encephalopaty, [place] Reason for Visit Anemia CKD stage 4 due to type 2 diabetes mellitus OAB (overactive bladder) Primary osteoarthritis of left hip Anemia of renal disease CKD (chronic kidney disease) stage 4, GFR 15-29 ml/min Gout Hyperlipidemia [id number] Secondary hyperparathyroidism Type 2 diabetes mellitus with diabetic chronic kidney disease Anemia of renal disease Bilateral hydronephrosis CAD (coronary artery disease) CKD (chronic kidney disease) stage 4, GFR 15-29 ml/min CKD stage 4 due to type 2 diabetes mellitus History of coronary artery bypass graft Hydroureter Hyperlipidemia Hypertension [id number] PAD (peripheral artery disease) Type 2 diabetes mellitus with diabetic chronic kidney disease Type 2 diabetes mellitus with hyperglycemia Urinary obstruction, unspecified Acute kidney injury Anemia of renal disease CKD (chronic kidney disease) stage 4, GFR 15-29 ml/min Primary osteoarthritis of left hip Chief Complaint RENAL CKD [address] sunshine sent over [facility] f[place] [facility] [place] metob[place]op[place] RENAL 2 MONTH F/U Reason for Visit Anemia of renal dise ase CKD (chronic kidney disease) stage 4, GFR 15-29 ml/min Gout Hyperlipidemia [id number] Secondary hyperparathyroidism Type 2 diabetes mellitus with diabetic chronic kidney disease Anemia of renal disease Bilateral hydronephrosis CAD (coronary artery disease) CKD (chronic kidney disease) stage 4, GFR 15-29 ml/min CKD stage 4 due to type 2 diabetes mellitus History of coronary artery bypass graft Hydroureter Hyperlipidemia Hypertension [id number] PAD (peripheral artery disease) Type 2 diabetes [...] due to type 2 diabetes mellitus Hyperlipidemia [id number] Secondary hyperparathyroidism Type 2 diabetes mellitus with diabetic chronic kidney disease Chief Complaint RENAL CKD [address] sunshine sent over [facility] f/[place] st[place] in [place] [facility] [place] metobolic [place]opaty[place] RENAL 2 MONTH F/U UA frequency, burning Reason for Visit Anemia of renal dise ase CKD (chronic kidney disease) stage 4, GFR 15-29 ml/min Gout Hyperlipidemia [id number] Secondary hyperparathyroidism Type 2 diabetes mellitus with diabetic chronic kidney disease Anemia of renal disease Bilateral hydronephrosis CAD (coronary artery disease) CKD (chronic kidney disease) stage 4, GFR 15-29 ml/min CKD stage 4 due to type 2 diabetes mellitus History of coronary artery bypass graft Hydroureter Hyperlipidemia Hypertension [id number] PAD (peripheral artery disease) Type 2 diabetes [...] stage 4, GFR 15-29 ml/min Gout Hyperlipidemia [id number] Proteinuria Secondary hyperparathyroidism Type 2 diabetes mellitus with diabetic chronic kidney disease Chief Complaint RENAL CKD [address] over [address] sunshine sent over [facility] f/[place] stents in [place] [facility] [place] metobolic encephalopaty[place] RENAL 2 MONTH F/U UA frequency, burning Reason for Visit Anemia of renal dise ase CKD (chronic kidney disease) stage 4, GFR 15-29 ml/min Gout Hyperlipidemia [id number] Secondary hyperparathyroidism Type 2 diabetes mellitus with diabetic chronic kidney disease Anemia of renal disease Bilateral hydronephrosis CAD (coronary artery disease) CKD (chronic kidney disease) stage 4, GFR 15-29 ml/min CKD stage 4 due to type 2 diabetes mellitus History of coronary artery bypass graft Hydroureter Hyperlipidemia Hypertension [id number] PAD (peripheral artery disease) Type 2 diabetes [...] stage 4, GFR 15-29 ml/min Gout Hyperlipidemia [id number] Proteinuria Secondary hyperparathyroidism Type 2 diabetes mellitus with diabetic chronic kidney disease UTI (urinary tract infection) Chief Complaint Admit Date [facility] [place] metobolic [place]op[place] March 05, 2024 [...] 07, 2024 10:09am Chief Complaint Admit Date [facility] [place] metobolic [place]op[place] March 05, 2024 [...] May 142023 10:32am Chief Complaint Admit Date [facility] [place] metobolic encephalopaty[place] March 05, 2024 [...] 2025 10:00am S/P total left hip arthroplasty [facility] r 2024 10:00am Chief Complaint Admit Date [...] on chronic systolic (congestive) h eart failure Esme 1st, 2025 3:11pm CKD (chronic kidney disease) [...] 22, 2025 5:26pm [facility] S[facility]P total left hip arthroplasty [facility] r 2024 5:26pm Steroid-induced hyperglycemia March 22, 2025 5:26pm Type 2 diabetes mellitus with hyperglyce [facility] March 22, 2025 5:26pm Chief [...] 2025 10:00am left hip osteoarthritis s/p LIVIER [facility] r 2024 5:26pm left hip osteoarthritis s/p LIVIER [facility] r 2024 12:00am Amb Documentation [...] 3:29pm Type 2 diabetes mellitus with hyperglyce [facility] January 31, 2025 3:29pm Anemia [...] March 10:00am S/P total left hip arthroplasty [facility] 2024 10:00am Weakness March 21, 2025 10:00am Acute on chronic systolic (congestive) h eart failure March 22, 2025 5:26pm CKD (chronic kidney disease) March 222024 5:26pm CKD (chronic kidney disease) stage 4, GF R 15-29 ml/min March 22, 2025 5:26pm Hyperlipidemia March 22, 2025 5:26pm Hypertension March 22, 2025 5:26pm Impaired mobility March 22, 2025 5:26pm PAD (peripheral artery disease) [facility] 2024 5:26pm S/P total left hip arthroplasty [facility] r 2024 5:26pm Steroid-induced hyperglycemia March 22, 2025 5:26pm Type 2 diabetes mellitus with hyperglyce [facility] March 22, 2025 5:26pm S/P total left hip arthroplasty [facility] r 2024 2:07pm Chief Complaint Admit Date [...] 3:11pm Type 2 diabetes mellitus with hyperglyce [facility] January 11, 2025 3:11pm Acute [...] March 10:00am S/P total left hip arthroplasty [facility] r 2024 10:00am Weakness March 21, 2025 10:00am Acute on chronic systolic (congestive) h eart failure March 22, 2025 5:26pm CKD (chronic kidney disease) March 222024 5:26pm CKD (chronic kidney disease) stage 4, GF R 15-29 ml/min March 22, 2025 5:26pm Hyperlipidemia March 22, 2025 5:26pm Hypertension March 22, 2025 5:26pm Impaired mobility March 22, 2025 5:26pm PAD (peripheral artery disease) [facility] r 2024 5:26pm S/P total left hip arthroplasty [facility] 2024 5:26pm Steroid-induced hyperglycemia March 22, 2025 5:26pm Type 2 diabetes mellitus with hyperglyce [facility] March 22, 2025 5:26pm Aftercare following left hip joint repla cement surgery April 06, 2025 2:07pm S/P total left hip arthroplasty [facility] r 2024 2:07pm CHF exacerbation April 07, [...] section and content) DATE CREATED AUTHOR 12/31/2017 [facility] DATE CREATED AUTHOR AUTHOR'S ORGANIZ ATION 01/07/2018 [facility] DATE CREATED AUTHOR AUTHOR'S ORGANIZ ATION 05/17/2020 [place] [facility] DATE CREATED AUTHOR AUTHOR'S ORGANIZ ATION 02/14/2022 [facility] DATE CREATED AUTHOR AUTHOR'S ORGANIZ ATION 07/26/2022 [facility] DATE CREATED AUTHOR AUTHOR'S ORGANIZ ATION 07/26/2022 [facility] DATE CREATED AUTHOR AUTHOR'S ORGANIZ ATION 02/28/2024 [facility] DATE CREATED AUTHOR AUTHOR'S ORGANIZ ATION 02/29/2024 [facility] DATE CREATED AUTHOR AUTHOR'S ORGANIZ ATION 03/01/2024 [facility] DATE CREATED AUTHOR AUTHOR'S ORGANIZ ATION 03/04/2024 [facility] DATE CREATED AUTHOR AUTHOR'S ORGANIZ ATION 03/07/2024 [facility] DATE CREATED AUTHOR AUTHOR'S ORGANIZ ATION 03/11/2024 [facility] DATE CREATED AUTHOR AUTHOR'S ORGANIZ ATION 05/16/2024 [facility] DATE CREATED AUTHOR AUTHOR'S ORGANIZ ATION 03/08/2025 [facility] DATE CREATED AUTHOR AUTHOR'S ORGANIZ ATION 04/18/2025 [facility] DATE CREATED AUTHOR AUTHOR'S ORGANIZ ATION 04/20/2025 [facility] DATE CREATED AUTHOR AUTHOR'S ORGANIZ ATION 04/21/2025 [facility] Care Teams (unrecognized sec tion [...] Status: Inactive Member Role Status Dates Stefan eBst MD Primary Care Provide r, Attending Provider [...] Status: Active Member Role Status Dates Stefan eBst MD Primary Care Provider Active Start: January [...] Active Ross Colmenares MD Attending Provider Active Patient Centered Care Specialist Relationship Specialty Start Date End Date Shahrzad Morales MD [address] [facility] [address] [place] [address] PCP - MSSP ACO Attributed Provider 7/1/23 Stefan Best MD [address] [place] [id number] PCP - General Family Medicine 09/17/23 Patient Centered Care Specialist Relationship Specialty Start Date End Date Shahrzad Morales MD [address] [facility] [address] [place] [address] PCP - MSSP ACO Attributed Provider 01/11/23 Stefan Best MD [address] [place] [id number] PCP - General Family Medicine 09/17/23 Patient Centered Care Specialist Relationship Specialty Start Date End Date Shahrzad Morales MD [address] [place] [address] [address] [place] [address] PCP - MSSP ACO Attributed Provider 01/11/23 Stefan Best MD [address] [place] [id number] PCP - General Family Medicine 09/17/23 Patient Centered Care Specialist Relationship Specialty Start Date End Date Shahrzad Morales MD [address] [facility] [address] [place] [address] PCP - MSSP ACO Attributed Provider 01/11/23 Stefan Best MD [address] [place] [id number] PCP - General Family Medicine 09/17/23 Patient Centered Care Specialist Relationship Specialty Start Date End Date Shahrzad Morales MD [address] [facility] [address] [place] [address] PCP - [facility] Attributed Provider 01/11/23 Stefan Best MD [address] [place] [address] PCP - General Family Medicine 09/17/23 Team [...] April 07, 2024 End: April 07, 2024 Patient Centered Care Specialist Relationship Specialty Start Date End Date Stefan [...] Start: Sep tember 2024 Salud Cee , [employer] Other Provider Active St art: March 21, [...] Kalyani Ferrari RN Other Provider [facility] Trace Alvarez MD Other Provider Active [...] Mason Rivera MD Other Provider Active Start: [facility] 2024 Vandana Urbina APRN Other Provider Active [...] 2024 End: April 09, 2025 Elisa Walker [facility] Other Provider Active Sta rt: April 07, [...] SPECT MULTIPLE STUDIES Shahrzad Morales MD [address] [facility] [address], [place] [id number] Referral ID Status Reason Start Date Expiration Date V isits Requested Visits Authorized [id number] Pending Review 09/17/2023 09/16/2024 5 5 Reason Comments Follow-up 8m Old WPM patient Specialty Diagnoses / Procedures Referred By Contac t Referred To Contact Cardiology Diagnoses Occlusion and stenosis of right carotid artery Procedures Follow Up In Cardiology Shahrzad Morales MD Smith, Donna K, [facility] [address] [facility] [address], [place] [id number] Phone: tel: fax: Referral ID Status Reason Start Date Expiration Date V isits Requested Visits Authorized [id number] Authorized 09/17/2023 09/16/2024 1 1 FOR RECORDS [...] BE BASED ON THE PRIMARY CLINICAL RECORDS. [facility] provides no warranty or guarantee of the accuracy or completeness of information in this document.
--- NOTE | 2025-05-02 15:51 | PM.CACN ---
History of Present Illness History of Present Illness Consult date: 05/02/25 Requesting physician: Nishi Welsh Consult reason: congestive heart failure and shortness of breath Chief complaint: WEAKNESS CHF Narrative: Per H&P: This is a 79 y.o female with past medical hx of CKD stage IV, frailty, CHF, gout, PAD, hypertension, recent admission for septic shock secondary to pyelonephritis with stents in the ureters were exchanged, retroperitoneal fibrosis, was discharged on cefuroxime. Patient is brought in from the halfway and accompanied by her son who provided more history. She states that over the last few days she has been having confusion along with chills but no nausea or vomiting and complains of bilateral slight flank pain and urinary frequency and straining to urinate. She had a UA at the halfway that was positive for UTI and she was upset about it stating that once I am off antibiotics I get the UTI back. She states that she was started on p.o. antibiotics not sure what exactly at the halfway. However over the last 3 days she started complaining of shortness of breath and they had to increase her oxygen from 1 L to 2 L nasal cannula at the halfway along with a dry cough. Denies any fever or exposure to sick contacts. Here in the ED, patient was hypoxic as were the ED documentation and signout was given albuterol and Atrovent and she improved with that. She denies to me any chest pain or palpitation or dizziness or lightheadedness. She denies any diaphoresis or vomiting but felt nauseous when I saw her in the room. Her labs in the ED did not show any leukocytosis and also showed stable hemoglobin. CMP showed sodium of 129, potassium 5.2, BUN of 70 with creatinine of 2.08. Her troponin was 17 but her BNP was 11,105 which is pretty much more elevated than her previous numbers. Chest x-ray did show evidence of fluid overload. Head CT was negative for acute pathology. CT chest without contrast showed cardiomegaly with pleural effusions and interstitial thickening suggestive failure. Patient to be admitted under hospital service for further workup and management Currently, the patient states that she feels this is all due to my kidneys . She is still short of breath but somewhat improved. She denies chest pain. She has a longstanding history of coronary artery disease and had coronary artery bypass graft surgery approximately 10 years ago. She follows with cardiology group in [place]. She states that she has had both a stress test and a heart catheterization within the past 1 to 2 years; per her description, she did not need stents. Her bypass grafts were apparently open. Her symptoms prior to bypass surgery was chest pain. She currently has no chest pain. Review of Systems ROS Status of ROS 10 or more systems reviewed and unremarkable except as noted in history and below Cardiovascular Reports: swelling of feet/ankles, shortness of breath with exertion and shortness of breath when lying down [facility] Medical History (Updated 05/02/25 @ 16:19 by Shaista Taylor MD) CHF (congestive heart failure) ?I50.9 - Heart failure, unspecified (ICD-10) Gout ?M10.9 - Gout, unspecified (ICD-10) Peripheral arterial disease ?I73.9 - Peripheral vascular disease, unspecified (ICD-10) Stage 3b chronic kidney disease (CKD) ?N18.32 - Chronic kidney disease, stage 3b (ICD-10) HTN (hypertension) ?I10 - Essential (primary) hypertension (ICD-10) Surgical History S/P hip replacement ?Z96.649 - Presence of unspecified artificial hip joint (ICD-10) History of aortic bifurcation bypass graft ?Z95.828 - Presence of other vascular implants and grafts (ICD-10) S/P triple vessel bypass ?Z95.1 - Presence of aortocoronary bypass graft (ICD-10) History of 3 sections ?Z98.891 - History of uterine scar from previous surgery (ICD-10) Family History Brother Family history of cancer Mother Family history of hypertension Father Family history of myocardial infarction Other Family history of CHF (congestive heart failure) Family history of diabetes mellitus Social History Within the past year, how often did you have a drink containing alcohol: never Score interpretation: A score less than 3 is consistent with normal alcohol consumption. Smoking status: Former smoker Non-prescribed substance use: denies use Previous occupational history: disabled Highest level of school completed/degree received: high school graduate Are you now , , , , never or living with a partner: In a typical week, how many times do you talk on the telephone with family, friends, or neighbors: 3 or more times per week How often do you get together with friends or relatives: 3 or more times per week How often do you attend roman catholic or restorationist services: 4 or more times per year Little interest or pleasure in doing things: not at all Feeling down, depressed, or hopeless: not at all Feel stressed/tense/nervous/anxious/difficulty sleeping: not at all Do you think of yourself as: straight/heterosexual Gender Identity: female Meds Home Medications and Allergies Home Medications ?Medication ?Instructions ?Recorded ?Confirmed ?Type allopurinol 300 mg tablet 300 mg PO DAILY 08/30/23 05/02/25 History aspirin 81 mg tablet,delayed 81 mg PO DAILY 08/30/23 05/02/25 History release cholecalciferol (vitamin D3) 125 125 mcg PO .every other day 08/30/23 05/02/25 History mcg (5,000 unit) tablet clopidogrel 75 mg tablet 75 mg PO DAILY 08/30/23 05/02/25 History furosemide 40 mg tablet 40 mg PO QAM 08/30/23 05/02/25 History pantoprazole 20 mg tablet,delayed 20 mg PO .qd 04/11/25 05/02/25 History release carvedilol 3.125 mg tablet 3.125 mg PO BID #0 tabs 04/15/25 05/02/25 Rx cefuroxime axetil 250 mg tablet 250 mg PO BID 10 days #20 tabs 04/15/25 05/02/25 Rx aocmftgh-kalqbyo-ozohvcg 24 31 g PO Q15M PRN Hypoglycemia #0 04/15/25 05/02/25 Rx gram/31 gram oral gel grams (Insta-Glucose (with dextrin)) glucagon 1 mg solution for 1 mg IV Q15M PRN Hypoglycemia #0 ea 04/15/25 05/02/25 Rx injection (Glucagon Emergency Kit) acetaminophen 500 mg tablet 1,000 mg PO Q8H PRN fever or pain 05/02/25 05/02/25 History atorvastatin 20 mg tablet 20 mg PO BEDTIME 05/02/25 05/02/25 History gabapentin 100 mg capsule 100 mg PO BEDTIME 05/02/25 05/02/25 History insulin aspart U-100 100 unit/mL 3 - 15 unit subcut ACHS 05/02/25 05/02/25 History (3 mL) subcutaneous pen (Novolog FlexPen U-100 Insulin aspart) insulin glargine-yfgn 100 unit/mL 25 unit subcut QPM 05/02/25 05/02/25 History (3 mL) subcutaneous pen ipratropium 0.5 mg-albuterol 3 mg 3 ml inhalation Q6H PRN shortness 05/02/25 05/02/25 History (2.5 mg base)/3 mL nebulization of breath or wheezing soln loperamide 2 mg capsule 2 mg PO Q6H PRN loose stool 05/02/25 05/02/25 History (Anti-Diarrheal (loperamide)) Allergies Allergy/AdvReac Type Severity Reaction Status Date / Time No Known Drug Allergies Allergy Verified 04/07/25 13:32 Exam Constitutional Vital Signs, click to edit/add: Last Vital Signs Temp 98.4 F 05/02/25 13:44 Pulse 72 05/02/25 14:44 Resp 22 H 05/02/25 13:44 BP 154/62 H 05/02/25 13:48 Pulse Ox 98 05/02/25 15:40 O2 Del Method Nasal Cannula 05/02/25 13:44 O2 Flow Rate 2 05/02/25 13:44 Common normals: oriented x3 General appearance: cooperative and comfortable Nutritional appearance: obese Orientation/consciousness: Yes awake, Yes oriented to person, Yes oriented to place and Yes oriented to time HENNH Common normals: normocephalic Head and scalp: normal to inspection Face and sinus: normal facial exam Eye General eye: normal appearance of both eyes Neck & C-Spine Common normals: full ROM General: normal visual inspection Respiratory Other: Diminished air entry bilaterally at the bases Cardio Common normals: regular rate and regular rhythm Jugular venous distention: JVD (+4 cm) Extremity Other: Bilateral lower extremity edema; 2+ to the knees Results Labs and Meds Lab results: CBC 05/02/25 Range/Units 10:15 WBC 10.0 (4.0-11.0) 10^3/uL RBC 3.18 L (4.20-5.40) 10^6/uL Hgb 9.9 L (12.0-16.0) g/dL Hct 32.3 L (36.0-48.0) % Plt Count 255 (150-450) 10^3/uL Neut # (Auto) 7.9 H (1.4-6.5) 10^3/uL Lymph # (Auto) 1.5 (1.2-3.8) 10^3/uL [place] # (Auto) 0.5 (0.3-0.8) 10^3/uL Eos # (Auto) 0.0 (0.0-0.7) 10^3/uL Baso # (Auto) 0.0 (0.0-0.1) 10^3/uL Comprehensive Metabolic Panel 05/02/25 Range/Units 10:15 Sodium 129 L (136-145) mmol/L Potassium 5.2 H (3.5-5.1) mmol/L Chloride 91 L (98-107) mmol/L Carbon Dioxide 28.3 (21.0-32.0) mmol/L BUN 70.0 H (7.0-18.0) mg/dL Creatinine 2.08 H (0.55-1.02) mg/dL Glucose 182 H (74-106) mg/dL Calcium 8.9 (8.5-10.1) mg/dL Intake and Output 05/01/25 05/02/25 05/02/25 23:59 07:59 15:59 Other: Weight 81.6 kg Patient Weight 05/03/25 07:59 Weight 81.6 kg NT pro beta natriuretic peptide; 11,000, 105 High-sensitivity troponin is normal CRP is significantly elevated at 16.[address] [place] [address] XRay Report Signed Patient: ESTHER TATUM MR#: [id number] : 1945 Acct:[id number] Age/Sex: 79 / F ADM Date: 05/02/25 Loc: ER Attending Dr: Ordering Physician: Corey Ramon D.O. Date of Service: 05/02/25 Procedure(s): XR chest 1V Accession Number(s): [id number] cc: Olivia Cazares M.D.; Corey Ramon D.O.~ The [address] [address] Patient Name: ESTHER TATUM MRN: [id number] date: 1945 Sex: F Assigned Patient Location: ED.MAIN Current Patient Location: ED.MAIN Accession/Order Number: [id number] Exam Date: 05/02/2025 11:00 Report Date: 05/02/2025 11:20 At the request of: COREY RAMON Procedure: XR chest 1V XR chest 1V 05/02/2025 11:04 AM SIGNS AND SYMPTOMS: ^shortness of breath ^Y PROTOCOL: Frontal radiograph of the chest COMPARISON: 04/07/2025 FINDINGS: The trachea is midline. Atherosclerotic changes are present in the thoracic aorta. There is evidence of prior sternotomy. There is mild cardiomegaly with hazy airspace opacities greatest in the lung bases. This is worse when compared to the prior exam. The bony thorax is intact. XR/XR chest 1V IMPRESSION: There is mild cardiomegaly with hazy airspace opacities greatest in the lung bases. This is worse when compared to the prior exam. Impression dictated by: Rhett Ponce M.D. 05/02/2025 11:20 AM Dictation Location: [place] [address] Electronically authenticated by: [id number] Y Date: 05/02/2025 11:20 1100 Sinus rhythm 3114 Cannot rule out anterior myocardial infarction, age undetermined 3634 Inferior myocardial infarction, age undetermined [address] depression, possible subendocardial injury 4564 Twave abnormality, possible lateral ischemia 9150 abnormal ECG Compared to ECG 04/12/2025 10:48:01 No significant changes Electronically Signed On 05-02-2025 13:17:44 EDT by SHAISTA TAYLOR Assessment and Plan Assessment and Plan (1) Acute exacerbation of CHF (congestive heart failure): Qualifiers: Heart failure type: unspecified Qualified Code(s): I50.9 - Heart failure, unspecified (2) CKD (chronic kidney disease): Qualifiers: Chronic kidney disease stage: stage 4 (GFR 15-29) Qualified Code(s): N18.4 - Chronic kidney disease, stage 4 (severe) (3) Pyelonephritis: (4) Gait instability: (5) Type 2 diabetes mellitus with diabetic neuropathy, unspecified: Qualifiers: Diabetes mellitus prison insulin use: unspecified continuous churn buttermaker insulin use status Qualified Code(s): E11.40 - Type 2 diabetes mellitus with diabetic neuropathy, unspecified (6) CAD (coronary artery disease): Qualifiers: Coronary Disease-Associated Artery/Lesion type: [place] artery [place] vs. transplanted heart: [place] heart Associated angina: without angina Qualified Code(s): I25.10 - Atherosclerotic heart disease of [place] coronary artery without angina pectoris (7) Diabetes: Qualifiers: Diabetes mellitus type: type 2 Diabetes mellitus continuous churn buttermaker insulin use: with prison use Diabetes mellitus complication status: with kidney complications Diabetes mellitus complication detail: with chronic kidney disease Chronic kidney disease stage: stage 3 (moderate) Chronic kidney disease stage 3 subtype: stage 3b (GFR 30-44) Qualified Code(s): E11.22 - Type 2 diabetes mellitus with diabetic chronic kidney disease; N18.32 - Chronic kidney disease, stage 3b; Z79.4 - [facility]CI (current) use of insulin (8) Peripheral arterial disease: (9) Stage 3b chronic kidney disease (CKD): (10) HTN (hypertension): Qualifiers: Hypertension 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 Qualified Code(s): I15.2 - Hypertension secondary to endocrine disorders (11) History of aortic bifurcation bypass graft: (12) S/P triple vessel bypass: Plan The patient's volume overload may be related to acute on chronic kidney disease, plus or minus underlying congestive heart failure. It is unclear whether she has failure with reduced ejection fraction versus heart failure with preserved ejection fraction; an echocardiogram is pending At any rate, her current decompensation is likely related to noncardiac comorbidities, specifically infection and/or inflammation as evidenced by significantly elevated CRP RECOMMENDATIONS: 1. Agree with IV diuresis, strict inputs and outputs, and daily weights. Closely monitor kidney functions and electrolytes. Correct as appropriate. 2. Await the results of the echocardiogram. 3. Guideline directed medical therapy for coronary artery disease should include aspirin, moderate intensity statin therapy, beta-breanna and RAAS if and when her kidney disease .allows 4. Optimal medical therapy for heart failure depends on the ejection fraction:; typically this would include an SGLT2 inhibitor and spironolactone both of which would not be initiated given her serum creatinine. 5. Given history of coronary and peripheral arterial disease as well as diabetes, an SGLT2 inhibitor is strongly indicated; will defer this to primary screen printing machine loader unloader. 6. Her abnormal EKG may or may not warrant further investigations once her infective/inflammatory issues have resolved; this will depend on comparison to prior EKGs. Again will defer to primary screen printing machine loader unloader. 7. Treat noncardiac comorbidities as clinically appropriate. Thank you for the consultation. Feel free to call with questions. Shaista Taylor MD [facility] Pager
[2025-05-02] MEDS: LEVOFLOXACIN IV (17:00)
[2025-05-02] MEDS: DEXTROSE IV (17:00)
[2025-05-02] MEDS: GABAPENTIN 100 MG CAPSULE PO (21:43)
[2025-05-02] MEDS: ATORVASTATIN CALCIUM 20 MG TABLET PO (21:43)
[2025-05-02] MEDS: CARVEDILOL 3.125 MG TABLET PO (21:43)
[2025-05-02] MEDS: HEPARIN SODIUM (PORCINE) 5,000 UNIT/ML VIAL 5000 UNIT SUBQ (21:43)
[2025-05-02] MEDS: INSULIN ASPART 300 UNIT/3 ML PEN SUBQ (22:39)
[2025-05-02] MEDS: INSULIN GLARGINE 300 UNIT/3 ML INSULN.PEN 25 UNIT SQ (22:40)
[2025-05-03] VITALS (90 sets, daily range): BP systolic 137–167; BP diastolic 50–111; PULSE 65–90; TEMP 36.3–37.2; O2SAT 84–100
[2025-05-03 05:52] LABS: Glucose Urine UA NEGATIVE (NEGATIVE)
[2025-05-03 05:54] LABS: Cast Seen? NONE SEEN #/LPF (NONE SEEN); Crystals Seen? None Seen #/HPF (None Seen); Urine Culture Indicated YES-FRMC
[2025-05-03 05:59] LABS: Hematocrit 28.8 % (36.0-48.0); Hemoglobin 9.0 g/dL (12.0-16.0); Immature Granulocytes Abs Auto 0.02 10^3/uL (0.00-0.03); Immature Granulocytes Pct Auto 0.3 % (0.0-0.5); Lymphocytes Absolute Auto 1.4 10^3/uL (1.2-3.8); Mean Corpuscular HGB Conc 31.3 g/dL (29.9-35.2); Mean Corpuscular Hemoglobin 31.0 pg (26.7-34.0); Mean Corpuscular Volume 99.3 fL (81.0-99.0); Platelet Count 246 10^3/uL (150-450); Red Blood Count 2.90 10^6/uL (4.20-5.40); White Blood Count 7.5 10^3/uL (4.0-11.0)
[2025-05-03 06:19] LABS: Alanine Aminotransferase 14 U/L (14-59); Albumin Globulin Ratio 0.5; Albumin Level 2.2 g/dL (3.4-5.0); Alkaline Phosphatase 91 U/L (46-116); Anion Gap 12.9; Aspartate Amino Transferase 11 U/L (15-37); Blood Urea Nitrogen 73.0 mg/dL (7.0-18.0); Calcium 9.1 mg/dL (8.5-10.1); Carbon Dioxide 27.6 mmol/L (21.0-32.0); Chloride 93 mmol/L (98-107); Estimated GFR (African America 31 (>=60 mL/min/1.73m^2); Estimated GFR (Non-African Ame 26 (>=60 mL/min/1.73m^2); Globulin 4.4 g/dL; Glucose 126 mg/dL (74-106); Magnesium 2.3 mg/dL (1.8-2.4); Potassium 4.5 mmol/L (3.5-5.1); Sodium 129 mmol/L (136-145); Total Protein 6.6 g/dL (6.4-8.2)
[2025-05-03] MEDS: FUROSEMIDE 40 MG/4 ML VIAL IVP ×2 (06:29→17:19)
[2025-05-03] MEDS: HEPARIN SODIUM (PORCINE) 5,000 UNIT/ML VIAL 5000 UNIT SUBQ ×3 (06:30→21:38)
[2025-05-03] MEDS: PANTOPRAZOLE SODIUM 40 MG TABLET.DR PO (06:30)
[2025-05-03] MEDS: CHOLECALCIFEROL (VITAMIN D3) 125 MCG/5,000 UNIT TABLET PO (08:30)
[2025-05-03] MEDS: CLOPIDOGREL BISULFATE 75 MG TABLET PO (08:31)
[2025-05-03] MEDS: CARVEDILOL 3.125 MG TABLET PO ×2 (08:31→21:38)
[2025-05-03] MEDS: ASPIRIN 81 MG TABLET.DR PO (08:31)
--- NOTE | 2025-05-03 09:41 | SWNOTE1 ---
EYD emailed Aysha and Naomi at [facility] to see if pt is still there skilled. Aysha did reply and pt is still there skilled. EDY attempted to speak with pt, but pt fell asleep during conversation.
--- NOTE | 2025-05-03 10:35 | CM.NOTE ---
Rounds made with Dr. Welsh, pt inpatient status. Discussed with pt diagnosis, lab work and plan of care. RN states that Dr. Crawford was notified for consult and will reach out to Dr. Welsh for further recommendations. No discharge today, pt comes from skilled facility ([facility]).
--- NOTE | 2025-05-03 12:30 | PM.PN ---
Progress Note: Subjective Subjective Interval history: Patient seen and examined at bedside. States that she feels a little better than yesterday. Her urine output is 1.5 L versus factory while on IV diuresis and her swelling is going down. She is on 1 L nasal cannula saturating 100%. No fever overnight. No leukocytosis. Cultures are pending. Exam Narrative Exam Narrative: General: Frail 79-year-old female, ill-appearing but not in acute distress. Pleasant and cooperative oriented x 3. Lying in bed Skin: Warm, dry, no pallor noted. Head: Normocephalic, atraumatic Neck: Supple, non-tender. No meningismus, mild JVD Eye: Pupils are equal, round and EOMI. No scleral icterus. Ears, Nose, Mouth, and Throat: Oral mucosa is moist Cardiovascular: Regular Rate and Rhythm without murmur, gallop or rub. Respiratory: Decreased bilateral air entry with bibasilar crackles and rhonchi, no wheezes. Patient saturating well on 2 L nasal cannula she does not use accessory muscles and not using abdominal wall muscles. She is not respiratory distress. Chest Wall: no tenderness, crepitus or subcutaneous emphysema Musculoskeletal: Bilateral 1+ pitting edema, intact peripheral pulses bilaterally. GI: Abdomen is soft, non-distended. Normal bowel sounds. No tenderness to palpation. No rebound, guarding, or rigidity noted. CVA tenderness is not present on exam. No signs of acute abdomen. No organomegaly Neurological: A&O x4, No cranial nerve dysfunction observed. No truncal ataxia but she is weak. Moves all extremities. Sensation intact. Constitutional Vital Signs, click to edit/add: Last Vital Signs Temp 98.1 F 05/03/25 07:59 Pulse 71 05/03/25 12:00 Resp 20 05/03/25 11:06 BP 150/66 H 05/03/25 11:41 Pulse Ox 100 05/03/25 11:50 O2 Del Method Nasal Cannula 05/03/25 12:00 O2 Flow Rate 1 05/03/25 12:00 Progress Note: Objective Labs Labs: Short CBC 05/03/25 Range/Units 05:39 WBC 7.5 (4.0-11.0) 10^3/uL Hgb 9.0 L (12.0-16.0) g/dL Hct 28.8 L (36.0-48.0) % Plt Count 246 (150-450) 10^3/uL BMP 05/03/25 05:39 Sodium 129 L Potassium 4.5 Chloride 93 L Carbon Dioxide 27.6 BUN 73.0 H Creatinine 1.87 H Glucose 126 H Calcium 9.1 Liver Function 05/03/25 Range/Units 05:39 Total Bilirubin 0.4 (0.2-1.0) mg/dL AST 11 L (15-37) U/L ALT 14 (14-59) U/L Alkaline Phosphatase 91 (46-116) U/L Albumin 2.2 L (3.4-5.0) g/dL Urine 05/02/25 Range/Units 02:40 Urine Color Lt. yellow (YELLOW) Urine Clarity Clear (CLEAR) Urine pH 6.0 (5.0-9.0) Ur Specific [place] 1.015 (1.005-1.025) Urine Protein 100 A (NEG/TRACE) mg/dL Urine Glucose (UA) Negative (NEGATIVE) mg/dL Progress Note: A&P Assessment and Plan (1) Acute exacerbation of CHF (congestive heart failure): Qualifiers: Heart failure type: unspecified Qualified Code(s): I50.9 - Heart failure, unspecified (2) CKD (chronic kidney disease): Qualifiers: Chronic kidney disease stage: stage 4 (GFR 15-29) Qualified Code(s): N18.4 - Chronic kidney disease, stage 4 (severe) (3) Pyelonephritis: (4) Gait instability: (5) Type 2 diabetes mellitus with diabetic neuropathy, unspecified: Qualifiers: Diabetes mellitus snf insulin use: unspecified snf insulin use status Qualified Code(s): E11.40 - Type 2 diabetes mellitus with diabetic neuropathy, unspecified (6) CAD (coronary artery disease): Qualifiers: Coronary Disease-Associated Artery/Lesion type: [place] artery [place] vs. transplanted heart: [place] heart Associated angina: without angina Qualified Code(s): I25.10 - Atherosclerotic heart disease of [place] coronary artery without angina pectoris (7) Diabetes: Qualifiers: Diabetes mellitus type: type 2 Diabetes mellitus tank terminal gauger insulin use: with tank terminal gauger use Diabetes mellitus complication status: with kidney complications Diabetes mellitus complication detail: with chronic kidney disease Chronic kidney disease stage: stage 3 (moderate) Chronic kidney disease stage 3 subtype: stage 3b (GFR 30-44) Qualified Code(s): E11.22 - Type 2 diabetes mellitus with diabetic chronic kidney disease; N18.32 - Chronic kidney disease, stage 3b; Z79.4 - USP (current) use of insulin (8) Peripheral arterial disease: (9) Stage 3b chronic kidney disease (CKD): (10) HTN (hypertension): Qualifiers: Hypertension 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 Qualified Code(s): I15.2 - Hypertension secondary to endocrine disorders (11) History of aortic bifurcation bypass graft: (12) S/P triple vessel bypass: Plan Acute hypoxic respiratory failure in the setting of acute exacerbation of HFpEF Complicated UTI, with significant history of previous Klebsiella UTI and stents exchange back in April 2025 Hyponatremia likely in the setting of fluid overload, asymptomatic and chronic as I do not have a recent baseline with last 48 hours No evidence of sepsis Frailty and debility - Admit patient to stepdown unit - Start IV Lasix 40 mg IV twice daily - Tovar to be placed and monitor I/os - Daily weights - Continue with her p.o. carvedilol - Given her mcfp urine cultures, I started already on IV Levaquin dosed by pharmacy - Urology consult given the stent that has not been exchanged as per son. Patient did have an appointment with Dr. Natarajan today however she did not make it as she came to the hospital -I ordered CT abdomen pelvis without contrast - PT/OT evaluation - Monitor renal function closely - HSQ for DVT prophylaxis - I reconciled her medication list - Full code, I discussed the goals of care with the patient and her son. They were updated in the chart 05/03/2025 I am following on this pleasant patient today. She reports somewhat improvement in her symptoms however still feels very tired. I reviewed her imaging as well as her echo that was done and showed grade 2 diastolic dysfunction with EF of 55% consistent with acute diastolic CHF. She does have severe pulmonary hypertension with RVSP of 67 mmHg. She continues to be on IV Lasix 40 mg twice daily with good tolerance and improvement in renal function actually. I am expecting her sodium to improve with further diuresis tomorrow. Her urine sodium came back as 38 however patient was already on Lasix so that could be interfering with the real value. Her swelling has gone down as well. She made 0.86 mL/kg/h of urine in the next 24 hours which is very satisfactory. She has no fever or chills. I spoke Dr. Spaulding from urology, recommended outpatient follow-up and did not recommend anything emergent/urgent to be done here in the hospital. Patient does not show signs of sepsis I will continue her Levaquin for now and will decide on discharging her on a p.o. antibiotic as well. The main diagnosis now is acute diastolic CHF exacerbation. Appreciate cardiology input. Did not start her on RAAS agent or even SGLT2 given her renal function. I will get proBNP for surveillance I usually do not get it for following up however I think in the context of her clinical symptomatology and response to treatment proBNP would be somewhat helpful today. Monitoring her QTc daily while on Levaquin. Urinary Catheter Management Urinary Catheter Management Urethral: Cath placed during this visit: yes Urethral indwelling: Yes Reason for continuing: measure accurate output Insertion date: 05/02/25 Insertion time: 14:29
[2025-05-03 13:07] LABS: NT Pro B Type Natriuretic Pept 14537.0 pg/mL (<=1800.0)
--- NOTE | 2025-05-03 13:35 | SWNOTE1 ---
Important Message from Medicare reviewed and discussed with patient's daughter, Niyah and with patient. Pt's daughter and patient verbalized understanding and patient had daughter sign the form. Original given to patient's daughter and copy placed in patient?s chart.
--- NOTE | 2025-05-03 13:42 | SWNOTE1 ---
SW met with pt, pt's daughter, and pt's sister in room. Pt's sister feel she is a little confused. Pt admits to being tired at this time and not feeling well. Pt was awake during conversation and answered appropriately. Pt was at [facility] for rehab. Pt and family voiced they do not feel like she had proper care at [facility] and the therapy was not good. Daughter stated therapy did not work with her very much due to the UTI and nursing was short staffed. SW did let them all know that pt will likely need more rehab at discharge. Daughter stated Dr. Lozano at [facility] was going to see if he could get her back in to acute rehab at [facility]. Daughter also stated the [place] would be better. Pt voiced she does not want to go to [place]. Pt is open to SW looking in to [facility] acute rehab. SW did advise that SW will have to send referral to see if she qualifies. Pt and family in agreement. SW also advised if she does qualify to go there and is only there for 2 weeks, then she could go to SNF after. Pt and family voiced understanding. SW to send referral. Referral sent to [facility] acute rehab. Referral included face sheet, ED note, H&P, provider notes, case management reportt, nursing notes, diagnostic imaging, med list, and PT/OT notes.
--- NOTE | 2025-05-03 13:47 | SWNOTE1 ---
SW also faxed Cardiology consult to [facility] acute rehab.
[2025-05-03] MEDS: PROCHLORPERAZINE 10 MG/2 ML VIAL 5 MG IV (14:10)
[2025-05-03] MEDS: ATORVASTATIN CALCIUM 20 MG TABLET PO (21:38)
[2025-05-03] MEDS: GABAPENTIN 100 MG CAPSULE PO (21:38)
[2025-05-03] MEDS: INSULIN GLARGINE 300 UNIT/3 ML INSULN.PEN 25 UNIT SQ (21:38)
[2025-05-04] VITALS (16 sets, daily range): BP systolic 143–150; BP diastolic 65–85; PULSE 64–86; TEMP 36.4–36.6; O2SAT 64–100
[2025-05-04] MEDS: PANTOPRAZOLE SODIUM 40 MG TABLET.DR PO (05:48)
[2025-05-04] MEDS: HEPARIN SODIUM (PORCINE) 5,000 UNIT/ML VIAL 5000 UNIT SUBQ ×3 (05:48→21:17)
[2025-05-04] MEDS: FUROSEMIDE 40 MG/4 ML VIAL IVP ×2 (05:48→17:22)
--- NOTE | 2025-05-04 06:00 | ECG_ITS ---
[facility] Test Date: 2025-05-04 Pat Name: ESTHER TATUM Department: Room: 2221 Gender: Female Collar Starcher: : 1945 Requested By: [id number] Order Number: [id number] Reading MD: HI PEREZ M.D. Measurements Intervals [place] Rate: 66 P: -7 SC: 178 QRS: -24 QRSD: 128 T: 159 QT: 448 QTc: 473 Interpretive Statements SINUS RHYTHM WITH MARKED SINUS ARRHYTHMIA INTERPOLATED VENTRICULAR PREMATURE COMPLEX POSSIBLE ANTERIOR MYOCARDIAL INFARCTION [30 ms Q WAVE IN V3/V4, OR R < 0.2 mV IN V4], OF INDETERMINATE AGE INFERIOR MYOCARDIAL INFARCTION [40+ ms Q WAVE AND/OR ST/T ABNORMALITY IN II/aVF], OF INDETERMINATE AGE ST DEVIATION AND MODERATE T-WAVE ABNORMALITY, CONSIDER LATERAL ISCHEMIA [-0.1+ mV T WAVE IN I/aVL/V5/V6] Compared to ECG 05/02/2025 10:02:05 T-wave abnormality now present ST (T wave) deviation no longer present Myocardial infarct finding still present Possible ischemia still present Electronically Signed On 05-04-2025 7:42:10 EDT by HI PEREZ M.D.
[2025-05-04 06:23] LABS: Hematocrit 29.1 % (36.0-48.0); Hemoglobin 9.1 g/dL (12.0-16.0); Immature Granulocytes Abs Auto 0.02 10^3/uL (0.00-0.03); Immature Granulocytes Pct Auto 0.3 % (0.0-0.5); Lymphocytes Absolute Auto 1.4 10^3/uL (1.2-3.8); Mean Corpuscular HGB Conc 31.3 g/dL (29.9-35.2); Mean Corpuscular Hemoglobin 31.1 pg (26.7-34.0); Mean Corpuscular Volume 99.3 fL (81.0-99.0); Platelet Count 264 10^3/uL (150-450); Red Blood Count 2.93 10^6/uL (4.20-5.40); White Blood Count 6.9 10^3/uL (4.0-11.0)
[2025-05-04 06:44] LABS: Alanine Aminotransferase 11 U/L (14-59); Albumin Globulin Ratio 0.6; Albumin Level 2.3 g/dL (3.4-5.0); Alkaline Phosphatase 83 U/L (46-116); Anion Gap 10.6; Aspartate Amino Transferase 12 U/L (15-37); Blood Urea Nitrogen 71.0 mg/dL (7.0-18.0); Calcium 9.4 mg/dL (8.5-10.1); Carbon Dioxide 32.4 mmol/L (21.0-32.0); Chloride 95 mmol/L (98-107); Estimated GFR (African America 32 (>=60 mL/min/1.73m^2); Estimated GFR (Non-African Ame 27 (>=60 mL/min/1.73m^2); Globulin 4.1 g/dL; Glucose 71 mg/dL (74-106); Magnesium 2.2 mg/dL (1.8-2.4); Potassium 4.0 mmol/L (3.5-5.1); Sodium 134 mmol/L (136-145); Total Protein 6.4 g/dL (6.4-8.2)
[2025-05-04] MEDS: CLOPIDOGREL BISULFATE 75 MG TABLET PO (08:28)
[2025-05-04] MEDS: CARVEDILOL 3.125 MG TABLET PO ×2 (08:28→21:17)
[2025-05-04] MEDS: ASPIRIN 81 MG TABLET.DR PO (08:28)
--- NOTE | 2025-05-04 10:00 | CM.NOTE ---
Rounds made with Dr. Welsh, no discharge today. PT and OT working with pt, pt remains very weak with max assist to transfer. Updated SW, unsure pt will be able to tolerated acute rehab at discharge. SW will speak with family and pt for ongoing discharge planning.
[2025-05-04] MEDS: ACETAMINOPHEN 500 MG TABLET 1000 MG PO (11:07)
[2025-05-04] MEDS: DICLOFENAC SODIUM 1% 100 GM TUBE TOPICAL ×3 (11:59→21:18)
[2025-05-04] MEDS: ALLOPURINOL 300 MG TABLET PO (11:59)
--- NOTE | 2025-05-04 12:03 | PM.PN ---
Progress Note: Subjective Subjective Interval history: Patient seen and examined at bedside. Patient states that she is short of breath, apparently she did have orthopnea and improved when she sat up in bed. Otherwise she states that she feels tired still. She will try to work with physical therapy today. Later on I saw her during the day sitting up in chair. She last around 2.5 kg thus far, with improvement in renal function. She is not in respiratory distress saturating well 100% on 2 L nasal cannula, however I agree that she looks tired and elderly Exam Narrative Exam Narrative: General: Frail 79-year-old female, ill-appearing but not in acute distress. Pleasant and cooperative oriented x 3. Lying in bed Skin: Warm, dry, no pallor noted. Head: Normocephalic, atraumatic Neck: Supple, non-tender. No meningismus, mild JVD Eye: Pupils are equal, round and EOMI. No scleral icterus. Ears, Nose, Mouth, and Throat: Oral mucosa is moist Cardiovascular: Regular Rate and Rhythm without murmur, gallop or rub. Respiratory: Decreased bilateral air entry with bibasilar crackles and rhonchi, no wheezes. Patient saturating well on 2 L nasal cannula she does not use accessory muscles and not using abdominal wall muscles. She is not respiratory distress. Chest Wall: no tenderness, crepitus or subcutaneous emphysema Musculoskeletal: Bilateral 1+ pitting edema, intact peripheral pulses bilaterally. GI: Abdomen is soft, non-distended. Normal bowel sounds. No tenderness to palpation. No rebound, guarding, or rigidity noted. CVA tenderness is not present on exam. No signs of acute abdomen. No organomegaly Neurological: A&O x4, No cranial nerve dysfunction observed. No truncal ataxia but she is weak. Moves all extremities. Sensation intact. Constitutional Vital Signs, click to edit/add: Last Vital Signs Temp 97.5 F L 05/04/25 07:45 Pulse 74 05/04/25 10:00 Resp 22 H 05/04/25 07:45 BP 143/65 H 05/04/25 07:45 Pulse Ox 99 05/04/25 11:44 O2 Del Method Nasal Cannula 05/04/25 11:44 O2 Flow Rate 2 05/04/25 11:44 Progress Note: Objective Labs Labs: Short CBC 05/04/25 Range/Units 06:10 WBC 6.9 (4.0-11.0) 10^3/uL Hgb 9.1 L (12.0-16.0) g/dL Hct 29.1 L (36.0-48.0) % Plt Count 264 (150-450) 10^3/uL BMP 05/04/25 06:10 Sodium 134 L Potassium 4.0 Chloride 95 L Carbon Dioxide 32.4 H BUN 71.0 H Creatinine 1.82 H Glucose 71 L Calcium 9.4 Liver Function 05/04/25 Range/Units 06:10 Total Bilirubin 0.4 (0.2-1.0) mg/dL AST 12 L (15-37) U/L ALT 11 L (14-59) U/L Alkaline Phosphatase 83 (46-116) U/L Albumin 2.3 L (3.4-5.0) g/dL Progress Note: A&P Assessment and Plan (1) Acute exacerbation of CHF (congestive heart failure): Qualifiers: Heart failure type: unspecified Qualified Code(s): I50.9 - Heart failure, unspecified (2) CKD (chronic kidney disease): Qualifiers: Chronic kidney disease stage: stage 4 (GFR 15-29) Qualified Code(s): N18.4 - Chronic kidney disease, stage 4 (severe) (3) Pyelonephritis: (4) Gait instability: (5) Type 2 diabetes mellitus with diabetic neuropathy, unspecified: Qualifiers: Diabetes mellitus moth exterminator insulin use: unspecified residential insulin use status Qualified Code(s): E11.40 - Type 2 diabetes mellitus with diabetic neuropathy, unspecified (6) CAD (coronary artery disease): Qualifiers: Coronary Disease-Associated Artery/Lesion type: [place] artery [place] vs. transplanted heart: [place] heart Associated angina: without angina Qualified Code(s): I25.10 - Atherosclerotic heart disease of [place] coronary artery without angina pectoris (7) Diabetes: Qualifiers: Diabetes mellitus type: type 2 Diabetes mellitus moth exterminator insulin use: with residential use Diabetes mellitus complication status: with kidney complications Diabetes mellitus complication detail: with chronic kidney disease Chronic kidney disease stage: stage 3 (moderate) Chronic kidney disease stage 3 subtype: stage 3b (GFR 30-44) Qualified Code(s): E11.22 - Type 2 diabetes mellitus with diabetic chronic kidney disease; N18.32 - Chronic kidney disease, stage 3b; Z79.4 - moth 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 (8) Peripheral arterial disease: (9) Stage 3b chronic kidney disease (CKD): (10) HTN (hypertension): Qualifiers: Hypertension 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 Qualified Code(s): I15.2 - Hypertension secondary to endocrine disorders (11) History of aortic bifurcation bypass graft: (12) S/P triple vessel bypass: Plan Acute hypoxic respiratory failure in the setting of acute exacerbation of HFpEF Complicated UTI, with significant history of previous Klebsiella UTI and stents exchange back in April 2025 Hyponatremia likely in the setting of fluid overload, asymptomatic and chronic as I do not have a recent baseline with last 48 hours No evidence of sepsis Frailty and debility - Admit patient to stepdown unit - Start IV Lasix 40 mg IV twice daily - Tovar to be placed and monitor I/os - Daily weights - Continue with her p.o. carvedilol - Given her residential urine cultures, I started already on IV Levaquin dosed by pharmacy - Urology consult given the stent that has not been exchanged as per son. Patient did have an appointment with Dr. Natarajan today however she did not make it as she came to the hospital -I ordered CT abdomen pelvis without contrast - PT/OT evaluation - Monitor renal function closely - HSQ for DVT prophylaxis - I reconciled her medication list - Full code, I discussed the goals of care with the patient and her son. They were updated in the chart 05/03/2025 I am following on this pleasant patient today. She reports somewhat improvement in her symptoms however still feels very tired. I reviewed her imaging as well as her echo that was done and showed grade 2 diastolic dysfunction with EF of 55% consistent with acute diastolic CHF. She does have severe pulmonary hypertension with RVSP of 67 mmHg. She continues to be on IV Lasix 40 mg twice daily with good tolerance and improvement in renal function actually. I am expecting her sodium to improve with further diuresis tomorrow. Her urine sodium came back as 38 however patient was already on Lasix so that could be interfering with the real value. Her swelling has gone down as well. She made 0.86 mL/kg/h of urine in the next 24 hours which is very satisfactory. She has no fever or chills. I spoke Dr. Louis from urology, recommended outpatient follow-up and did not recommend anything emergent/urgent to be done here in the hospital. Patient does not show signs of sepsis I will continue her Levaquin for now and will decide on discharging her on a p.o. antibiotic as well. The main diagnosis now is acute diastolic CHF exacerbation. Appreciate cardiology input. Did not start her on RAAS agent or even SGLT2 given her renal function. I will get proBNP for surveillance I usually do not get it for following up however I think in the context of her clinical symptomatology and response to treatment proBNP would be somewhat helpful today. Monitoring her QTc daily while on Levaquin. 05/04/2025 continues to be on IV Lasix. On her chemistry there is some development of some metabolic alkalosis which I will address tomorrow if continues to to increase, bicarb level. For now we will continue with IV Lasix 40 mg twice daily as her kidneys are tolerating and she is putting good urine output as well as her weight is improving. Continue to be on IV Levaquin as recommended by her urology, Dr. Louis, home I spoke to yesterday. Her BNP was 14,000 yesterday which I do not believe given her clinical response to it. Her leg swelling has improved compared to yesterday and elevated for. Family are interested in going to inpatient rehab at [facility]. Will have a discussion with Dr. Ferrari in the inpatient rehab Dr. Barahona today. Patient appears to be very tired and ill and I encouraged her to work with physical therapy today. I instructed the nursing team to put 2 pillows under the patient order to elevate her bed by 30 degrees to avoid orthopnea and PND. Urinary Catheter Management Urinary Catheter Management Urethral: Cath placed during this visit: yes Urethral indwelling: Yes Reason for continuing: measure accurate output Insertion date: 05/02/25 Insertion time: 14:29
--- NOTE | 2025-05-04 13:24 | SWNOTE1 ---
EDY did have a message from Maxine at [facility]. They will follow, but unsure if pt will be able to tolerate acute rehab. SW faxed updates to Maxine, PT note, progress, labs, vitals, and nursing notes. SW to speak with family as well.
--- NOTE | 2025-05-04 14:23 | SWNOTE1 ---
SW stopped in and spoke with pt. Pt is tired and requested SW come back once her arrives.
--- NOTE | 2025-05-04 16:05 | SWNOTE1 ---
EDY did speak with pt and in room. SW let them know that Maxine at [facility] acute rehab is going to follow, but they are unsure if they can accept. EDY advised that we may have to put together a plan B in case she does not qualify for acute rehab. SW did provide a list from Medicare.gov and will review with daughter. They are unsure where they would want. SW to follow up tomorrow.
[2025-05-04] MEDS: LEVOFLOXACIN IN DEXTROSE 5 % 500 MG/100 ML PREMIX 100 MG IV (16:21)
[2025-05-04] MEDS: GABAPENTIN 100 MG CAPSULE PO (21:17)
[2025-05-04] MEDS: ATORVASTATIN CALCIUM 20 MG TABLET PO (21:17)
[2025-05-05] VITALS (86 sets, daily range): BP systolic 119–172; BP diastolic 49–94; PULSE 65–89; TEMP 36.4–36.6; O2SAT 77–100
[2025-05-05] MEDS: DICLOFENAC SODIUM 1% 100 GM TUBE TOPICAL ×3 (05:04→21:56)
[2025-05-05] MEDS: FUROSEMIDE 40 MG/4 ML VIAL IVP ×2 (05:04→17:21)
[2025-05-05] MEDS: PANTOPRAZOLE SODIUM 40 MG TABLET.DR PO (05:13)
[2025-05-05 06:12] LABS: Hematocrit 29.0 % (36.0-48.0); Hemoglobin 9.0 g/dL (12.0-16.0); Immature Granulocytes Abs Auto 0.03 10^3/uL (0.00-0.03); Immature Granulocytes Pct Auto 0.4 % (0.0-0.5); Lymphocytes Absolute Auto 1.8 10^3/uL (1.2-3.8); Mean Corpuscular HGB Conc 31.0 g/dL (29.9-35.2); Mean Corpuscular Hemoglobin 31.1 pg (26.7-34.0); Mean Corpuscular Volume 100.3 fL (81.0-99.0); Platelet Count 266 10^3/uL (150-450); Red Blood Count 2.89 10^6/uL (4.20-5.40); White Blood Count 6.9 10^3/uL (4.0-11.0)
[2025-05-05 06:31] LABS: Alanine Aminotransferase 11 U/L (14-59); Albumin Globulin Ratio 0.6; Albumin Level 2.3 g/dL (3.4-5.0); Alkaline Phosphatase 80 U/L (46-116); Anion Gap 9.0; Aspartate Amino Transferase 14 U/L (15-37); Blood Urea Nitrogen 61.0 mg/dL (7.0-18.0); Calcium 9.2 mg/dL (8.5-10.1); Carbon Dioxide 32.9 mmol/L (21.0-32.0); Chloride 95 mmol/L (98-107); Estimated GFR (African America 34 (>=60 mL/min/1.73m^2); Estimated GFR (Non-African Ame 28 (>=60 mL/min/1.73m^2); Globulin 4.0 g/dL; Glucose 77 mg/dL (74-106); Magnesium 2.1 mg/dL (1.8-2.4); Potassium 3.9 mmol/L (3.5-5.1); Sodium 133 mmol/L (136-145); Total Protein 6.3 g/dL (6.4-8.2)
[2025-05-05] MEDS: CLOPIDOGREL BISULFATE 75 MG TABLET PO (08:45)
[2025-05-05] MEDS: ASPIRIN 81 MG TABLET.DR PO (08:45)
[2025-05-05] MEDS: ALLOPURINOL 300 MG TABLET PO (08:45)
[2025-05-05] MEDS: CARVEDILOL 3.125 MG TABLET PO ×2 (08:45→21:55)
[2025-05-05] MEDS: CHOLECALCIFEROL (VITAMIN D3) 125 MCG/5,000 UNIT TABLET PO (08:45)
[2025-05-05 10:52] LABS: INR 1.09; Partial Thromboplastin Time 29.7 sec (22.3-36.2); Prothrombin Time 11.5 sec (9.0-11.6)
--- NOTE | 2025-05-05 11:16 | PM.PN ---
Progress Note: Subjective Subjective Interval history: Patient seen and examined at bedside. No events overnight. Nursing reported patient still feeling weak. I went to the patient's room and she was with her son. Patient is sitting up in chair states that he feels better than yesterday. Her urine output is satisfactory. Renal function and overall labs are continuing to improve. No fever no chills overnight. Patient tolerating IV diuresis. She is 98% saturating on 2 L nasal cannula. Her neck pain improved with the Voltaren gel that was applied to her neck yesterday Exam Narrative Exam Narrative: General: Frail 79-year-old female, ill-appearing but not in acute distress. Pleasant and cooperative oriented x 3. Lying in bed Skin: Warm, dry, no pallor noted. Head: Normocephalic, atraumatic Neck: Supple, non-tender. No meningismus, mild JVD Eye: Pupils are equal, round and EOMI. No scleral icterus. Ears, Nose, Mouth, and Throat: Oral mucosa is moist Cardiovascular: Regular Rate and Rhythm without murmur, gallop or rub. Respiratory: Decreased bilateral air entry with bibasilar crackles and rhonchi, no wheezes. Patient saturating well on 2 L nasal cannula she does not use accessory muscles and not using abdominal wall muscles. She is not respiratory distress. Chest Wall: no tenderness, crepitus or subcutaneous emphysema Musculoskeletal: Pedal edema in her bilateral lower extremities still there but improved compared to on admission, intact peripheral pulses bilaterally. GI: Abdomen is soft, non-distended. Normal bowel sounds. No tenderness to palpation. No rebound, guarding, or rigidity noted. CVA tenderness is not present on exam. No signs of acute abdomen. No organomegaly Neurological: A&O x4, No cranial nerve dysfunction observed. No truncal ataxia but she is weak. Moves all extremities. Sensation intact. Constitutional Vital Signs, click to edit/add: Last Vital Signs Temp 97.5 F L 05/05/25 07:50 Pulse 72 05/05/25 10:00 Resp 18 05/05/25 07:56 BP 160/71 H 05/05/25 07:50 Pulse Ox 98 05/05/25 07:50 O2 Del Method Nasal Cannula 05/05/25 07:50 O2 Flow Rate 2 05/05/25 07:50 Progress Note: Objective Labs Labs: Short CBC 05/05/25 Range/Units 05:37 WBC 6.9 (4.0-11.0) 10^3/uL Hgb 9.0 L (12.0-16.0) g/dL Hct 29.0 L (36.0-48.0) % Plt Count 266 (150-450) 10^3/uL BMP 05/05/25 05:37 Sodium 133 L Potassium 3.9 Chloride 95 L Carbon Dioxide 32.9 H BUN 61.0 H Creatinine 1.73 H Glucose 77 Calcium 9.2 Liver Function 05/05/25 Range/Units 05:37 Total Bilirubin 0.3 (0.2-1.0) mg/dL AST 14 L (15-37) U/L ALT 11 L (14-59) U/L Alkaline Phosphatase 80 (46-116) U/L Albumin 2.3 L (3.4-5.0) g/dL Progress Note: A&P Assessment and Plan (1) Acute exacerbation of CHF (congestive heart failure): Qualifiers: Heart failure type: unspecified Qualified Code(s): I50.9 - Heart failure, unspecified (2) CKD (chronic kidney disease): Qualifiers: Chronic kidney disease stage: stage 4 (GFR 15-29) Qualified Code(s): N18.4 - Chronic kidney disease, stage 4 (severe) (3) Pyelonephritis: (4) Gait instability: (5) Type 2 diabetes mellitus with diabetic neuropathy, unspecified: Qualifiers: Diabetes mellitus care home insulin use: unspecified joint terminal attack controller insulin use status Qualified Code(s): E11.40 - Type 2 diabetes mellitus with diabetic neuropathy, unspecified (6) CAD (coronary artery disease): Qualifiers: Coronary Disease-Associated Artery/Lesion type: [place] artery [place] vs. transplanted heart: [place] heart Associated angina: without angina Qualified Code(s): I25.10 - Atherosclerotic heart disease of [place] coronary artery without angina pectoris (7) Diabetes: Qualifiers: Diabetes mellitus type: type 2 Diabetes mellitus care home insulin use: with joint terminal attack controller use Diabetes mellitus complication status: with kidney complications Diabetes mellitus complication detail: with chronic kidney disease Chronic kidney disease stage: stage 3 (moderate) Chronic kidney disease stage 3 subtype: stage 3b (GFR 30-44) Qualified Code(s): E11.22 - Type 2 diabetes mellitus with diabetic chronic kidney disease; N18.32 - Chronic kidney disease, stage 3b; Z79.4 - superintendent marine oil terminal (current) use of insulin (8) Peripheral arterial disease: (9) Stage 3b chronic kidney disease (CKD): (10) HTN (hypertension): Qualifiers: Hypertension 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 Qualified Code(s): I15.2 - Hypertension secondary to endocrine disorders (11) History of aortic bifurcation bypass graft: (12) S/P triple vessel bypass: Plan Acute hypoxic respiratory failure in the setting of acute exacerbation of HFpEF Complicated UTI, with significant history of previous Klebsiella UTI and stents exchange back in April 2025 Hyponatremia likely in the setting of fluid overload, asymptomatic and chronic as I do not have a recent baseline with last 48 hours No evidence of sepsis Frailty and debility - Admit patient to stepdown unit - Start IV Lasix 40 mg IV twice daily - Tovar to be placed and monitor I/os - Daily weights - Continue with her p.o. carvedilol - Given her senior care urine cultures, I started already on IV Levaquin dosed by pharmacy - Urology consult given the stent that has not been exchanged as per son. Patient did have an appointment with Dr. Natarajan today however she did not make it as she came to the hospital -I ordered CT abdomen pelvis without contrast - PT/OT evaluation - Monitor renal function closely - HSQ for DVT prophylaxis - I reconciled her medication list - Full code, I discussed the goals of care with the patient and her son. They were updated in the chart 05/03/2025 I am following on this pleasant patient today. She reports somewhat improvement in her symptoms however still feels very tired. I reviewed her imaging as well as her echo that was done and showed grade 2 diastolic dysfunction with EF of 55% consistent with acute diastolic CHF. She does have severe pulmonary hypertension with RVSP of 67 mmHg. She continues to be on IV Lasix 40 mg twice daily with good tolerance and improvement in renal function actually. I am expecting her sodium to improve with further diuresis tomorrow. Her urine sodium came back as 38 however patient was already on Lasix so that could be interfering with the real value. Her swelling has gone down as well. She made 0.86 mL/kg/h of urine in the next 24 hours which is very satisfactory. She has no fever or chills. I spoke Dr. Louis from urology, recommended outpatient follow-up and did not recommend anything emergent/urgent to be done here in the hospital. Patient does not show signs of sepsis I will continue her Levaquin for now and will decide on discharging her on a p.o. antibiotic as well. The main diagnosis now is acute diastolic CHF exacerbation. Appreciate cardiology input. Did not start her on RAAS agent or even SGLT2 given her renal function. I will get proBNP for surveillance I usually do not get it for following up however I think in the context of her clinical symptomatology and response to treatment proBNP would be somewhat helpful today. Monitoring her QTc daily while on Levaquin. 05/04/2025 continues to be on IV Lasix. On her chemistry there is some development of some metabolic alkalosis which I will address tomorrow if continues to to increase, bicarb level. For now we will continue with IV Lasix 40 mg twice daily as her kidneys are tolerating and she is putting good urine output as well as her weight is improving. Continue to be on IV Levaquin as recommended by her urology, Dr. Louis, home I spoke to yesterday. Her BNP was 14,000 yesterday which I do not believe given her clinical response to it. Her leg swelling has improved compared to yesterday and elevated for. Family are interested in going to inpatient rehab at [facility]. Will have a discussion with Dr. Ferrari in the inpatient rehab Dr. Barahona today. Patient appears to be very tired and ill and I encouraged her to work with physical therapy today. I instructed the nursing team to put 2 pillows under the patient order to elevate her bed by 30 degrees to avoid orthopnea and PND. 05/05/2025 patient is tolerating IV diuresis well. Her urine output is satisfactory with renal function much improved. I will hold off on Diamox as the patient's metabolic alkalosis appears to be stable. Continues to be on IV Levaquin as per urology. I discussed the plan with her in details explained to her that inpatient rehab would not take her unless she works with physical therapy. She said that she will try to wear them for the next 24 hours. Also introduced to her the idea that she may need to look at other options like SNF if rehab does not take her. Otherwise, she is headed in the right direction, she will need 2 more days of IV diuresis Urinary Catheter Management Urinary Catheter Management Urethral: Cath placed during this visit: yes Urethral indwelling: Yes Reason for continuing: measure accurate output Insertion date: 05/02/25 Insertion time: 14:29
--- NOTE | 2025-05-05 12:06 | CM.NOTE ---
Rounds made with Dr. Welsh, no discharge today. PT and OT working with pt, pt remains very weak. New orders placed for INR/PTT. Will continue to monitor.
--- NOTE | 2025-05-05 13:09 | SWNOTE1 ---
EDY sent updated PT/OT, physician note, labs, vitals, and nursing notes to Maxine at [facility] acute re[facility].
--- NOTE | 2025-05-05 16:12 | SWNOTE1 ---
EDY stopped in to see pt. Pt's and son were in room. EDY advised that a message was left at [facility] acute rehab for Maxine to see if they can accept. Waiting to hear back. Pt and family agreeable to come up with a plan B. They would like [facility] as plan B. SW to send referral. Referral sent to [facility]. Referral included face sheet, ED note, H&P, provider notes, case management report, cardiology consult, nursing notes, diagnostic imaging, med list, and PT/OT notes.
[2025-05-05] MEDS: INSULIN ASPART 300 UNIT/3 ML PEN SUBQ (16:45)
[2025-05-05] MEDS: ENSURE HP 237 ML LIQUID PO (17:21)
[2025-05-05] MEDS: GABAPENTIN 100 MG CAPSULE PO (21:55)
[2025-05-05] MEDS: ATORVASTATIN CALCIUM 20 MG TABLET PO (21:55)
[2025-05-06] VITALS (45 sets, daily range): BP systolic 132–177; BP diastolic 49–96; PULSE 59–83; TEMP 36.3–37; O2SAT 93–100
[2025-05-06] MEDS: FUROSEMIDE 40 MG/4 ML VIAL IVP ×2 (05:30→17:04)
[2025-05-06] MEDS: PANTOPRAZOLE SODIUM 40 MG TABLET.DR PO (05:30)
[2025-05-06 05:55] LABS: Hematocrit 29.4 % (36.0-48.0); Hemoglobin 9.0 g/dL (12.0-16.0); Immature Granulocytes Abs Auto 0.05 10^3/uL (0.00-0.03); Immature Granulocytes Pct Auto 0.7 % (0.0-0.5); Lymphocytes Absolute Auto 1.7 10^3/uL (1.2-3.8); Mean Corpuscular HGB Conc 30.6 g/dL (29.9-35.2); Mean Corpuscular Hemoglobin 31.1 pg (26.7-34.0); Mean Corpuscular Volume 101.7 fL (81.0-99.0); Platelet Count 260 10^3/uL (150-450); Red Blood Count 2.89 10^6/uL (4.20-5.40); White Blood Count 7.6 10^3/uL (4.0-11.0)
[2025-05-06 06:24] LABS: Alanine Aminotransferase 9 U/L (14-59); Albumin Globulin Ratio 0.6; Albumin Level 2.4 g/dL (3.4-5.0); Alkaline Phosphatase 77 U/L (46-116); Anion Gap 11.7; Aspartate Amino Transferase 11 U/L (15-37); Blood Urea Nitrogen 59.0 mg/dL (7.0-18.0); Calcium 9.2 mg/dL (8.5-10.1); Carbon Dioxide 33.4 mmol/L (21.0-32.0); Chloride 94 mmol/L (98-107); Estimated GFR (African America 33 (>=60 mL/min/1.73m^2); Estimated GFR (Non-African Ame 27 (>=60 mL/min/1.73m^2); Globulin 3.9 g/dL; Glucose 177 mg/dL (74-106); Magnesium 2.1 mg/dL (1.8-2.4); Potassium 4.1 mmol/L (3.5-5.1); Sodium 135 mmol/L (136-145); Total Protein 6.3 g/dL (6.4-8.2)
[2025-05-06 06:25] LABS: NT Pro B Type Natriuretic Pept 11952.0 pg/mL (<=1800.0)
[2025-05-06] MEDS: ASPIRIN 81 MG TABLET.DR PO (08:18)
[2025-05-06] MEDS: CARVEDILOL 3.125 MG TABLET PO ×2 (08:18→21:12)
[2025-05-06] MEDS: ENSURE HP 237 ML LIQUID PO ×2 (08:18→16:49)
[2025-05-06] MEDS: ALLOPURINOL 300 MG TABLET PO (08:18)
[2025-05-06] MEDS: CLOPIDOGREL BISULFATE 75 MG TABLET PO (08:18)
--- NOTE | 2025-05-06 09:24 | SWNOTE1 ---
EDY reached out to Maxine at [facility] and she stated as of yesterday Dr. Ferrari wanted to see how she did today, but they do not feel she can withstand acute rehab as of yesterday. EDY to send PT/OT note from today once they are completed.
--- NOTE | 2025-05-06 10:15 | CM.NOTE ---
Rounded with . Plan is for discharge tomorrow. Referral sent to [facility] as a back up plan in case she does not qualify for [facility] inpatient acute rehab.
--- NOTE | 2025-05-06 11:31 | SWNOTE1 ---
EDY faxed PT note from today to Maxine at [facility]. EDY also heard back from Joyce at [facility] and they are able to accept. EDY spoke to case management and the physician is thinking tomorrow for discharge. EDY updated Joyce at [facility].
[2025-05-06] MEDS: INSULIN ASPART 300 UNIT/3 ML PEN SUBQ ×3 (11:33→21:14)
--- NOTE | 2025-05-06 11:59 | SWNOTE1 ---
EDY received a call back from Maxine at [facility] and they did receive the PT notes from today. Maxine voiced at this time they do not feel pt is appropriate for acute rehab. She stated if pt is still at hospital Friday, they will re-evaluate. EDY to let pt and family know. Plan is for discharge tomorrow. EDY did let Maxine at [facility] know that the plan is for dc tomorrow. At this time plan is for pt to go to [facility].
--- NOTE | 2025-05-06 12:18 | PM.PN ---
Progress Note: Subjective Subjective Interval history: Patient seen and examined at bedside. No major events overnight, hemodynamically appears to be stable, she is breathing better and easier, tolerating oral diet, her son and daughter in the room, patient reports that she participated with PT/OT better today she feels a bit stronger, she is saturating 100% on 2 L, this can be weaned off, reports that she does not wear oxygen at home. CM following for disposition. Exam Narrative Exam Narrative: Const General: cooperative HEENT Normal oropharyngeal mucosa without any ulcers or exudates Eyes: Conjunctiva normal Pulmonary Auscultation: slightly diminished breath sounds, no crackles, no wheezes Cardiovascular Rate: normal rate Rhythm: regular rhythm Heart Sounds: S1 normal, S2 normal and no murmurs GI Inspection: non-distended Palpation: soft, not firm and nontender. No rigidity or rebound. Deferred Neuro General: alert, awake and oriented x3. No obvious new focal deficit Musculoskeletal: normal range of motion Extrem General: no cyanosis, trace pedal edema Psych Appearance: appropriate affect. Grossly normal Constitutional Vital Signs, click to edit/add: Last Vital Signs Temp 98.1 F 05/06/25 08:00 Pulse 78 05/06/25 12:00 Resp 24 H 05/06/25 04:00 BP 148/49 H 05/06/25 11:35 Pulse Ox 100 05/06/25 11:45 O2 Del Method Nasal Cannula 05/06/25 11:54 O2 Flow Rate 2 05/06/25 11:54 Progress Note: Objective Labs Labs: Short CBC 05/06/25 Range/Units 05:33 WBC 7.6 (4.0-11.0) 10^3/uL Hgb 9.0 L (12.0-16.0) g/dL Hct 29.4 L (36.0-48.0) % Plt Count 260 (150-450) 10^3/uL BMP 05/06/25 05:33 Sodium 135 L Potassium 4.1 Chloride 94 L Carbon Dioxide 33.4 H BUN 59.0 H Creatinine 1.79 H Glucose 177 H Calcium 9.2 Liver Function 05/06/25 Range/Units 05:33 Total Bilirubin 0.3 (0.2-1.0) mg/dL AST 11 L (15-37) U/L ALT 9 L (14-59) U/L Alkaline Phosphatase 77 (46-116) U/L Albumin 2.4 L (3.4-5.0) g/dL Progress Note: A&P Assessment and Plan (1) Acute exacerbation of CHF (congestive heart failure): Qualifiers: Heart failure type: unspecified Qualified Code(s): I50.9 - Heart failure, unspecified (2) CKD (chronic kidney disease): Qualifiers: Chronic kidney disease stage: stage 4 (GFR 15-29) Qualified Code(s): N18.4 - Chronic kidney disease, stage 4 (severe) (3) Pyelonephritis: (4) Gait instability: (5) Type 2 diabetes mellitus with diabetic neuropathy, unspecified: Qualifiers: Diabetes mellitus prison insulin use: unspecified prison insulin use status Qualified Code(s): E11.40 - Type 2 diabetes mellitus with diabetic neuropathy, unspecified (6) CAD (coronary artery disease): Qualifiers: Coronary Disease-Associated Artery/Lesion type: [place] artery [place] vs. 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 insulin use: with prison use Diabetes mellitus complication status: with kidney complications Diabetes mellitus complication detail: with chronic kidney disease Chronic kidney disease stage: stage 3 (moderate) Chronic kidney disease stage 3 subtype: stage 3b (GFR 30-44) Qualified Code(s): E11.22 - Type 2 diabetes mellitus with diabetic chronic kidney disease; N18.32 - Chronic kidney disease, stage 3b; Z79.4 - assisted (current) use of insulin (8) Peripheral arterial disease: (9) Stage 3b chronic kidney disease (CKD): (10) HTN (hypertension): Qualifiers: Hypertension 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 Qualified Code(s): I15.2 - Hypertension secondary to endocrine disorders (11) History of aortic bifurcation bypass graft: (12) S/P triple vessel bypass: Plan Acute hypoxic respiratory failure in the setting of acute exacerbation of HFpEF Complicated UTI- due to Klebsiella Pneumonia ESBL , with significant history of previous Klebsiella UTI and stents exchange back in April 2025 Hyponatremia likely in the setting of fluid overload, asymptomatic and chronic Frailty and debility -Continue IV diuresis, transition to oral on discharge -Monitor kidney function, stable and improving so far -Urine culture came back positive for Klebsiella pneumonia, final culture showed ESBL, patient has been on Levaquin which is appropriate and sensitive. Continue to complete course -Continue fluid and sodium restriction - Continue to participate with PT/OT - DVT prophylaxis with HSQ - seaport planning manager following regarding - Pending decision from inpatient rehab at [facility] - If declined for inpatient rehab, SNF is a plan. CM following Discussed with patient and family at bedside, all question answered, they are in agreement with above plan Urinary Catheter Management Urinary Catheter Management Urethral: Cath placed during this visit: yes Urethral indwelling: Yes Reason for continuing: measure accurate output Insertion date: 05/02/25 Insertion time: 14:29
--- NOTE | 2025-05-06 12:42 | SWNOTE1 ---
EDY updated patient in regards to [facility] not being able to accept and that [facility] has accepted. She voiced understanding. SW did ask who she would like me to call, she stated her Edgar. SW to call.
--- NOTE | 2025-05-06 12:44 | SWNOTE1 ---
Correct, 's name is Walter.
--- NOTE | 2025-05-06 13:11 | SWNOTE1 ---
SW called daughter as well to update her. [facility] did tell SW that if she is still here Friday, they will re-evaluate.
[2025-05-06] MEDS: HEPARIN SODIUM (PORCINE) 5,000 UNIT/ML VIAL 5000 UNIT SUBQ ×2 (14:40→21:12)
[2025-05-06] MEDS: ACETAMINOPHEN 500 MG TABLET 1000 MG PO (16:49)
[2025-05-06] MEDS: LEVOFLOXACIN IN DEXTROSE 5 % 500 MG/100 ML PREMIX 100 MG IV (16:49)
[2025-05-06] MEDS: GABAPENTIN 100 MG CAPSULE PO (21:12)
[2025-05-06] MEDS: ATORVASTATIN CALCIUM 20 MG TABLET PO (21:12)
[2025-05-06] MEDS: DICLOFENAC SODIUM 1% 100 GM TUBE TOPICAL (21:14)
[2025-05-06] MEDS: INSULIN GLARGINE 300 UNIT/3 ML INSULN.PEN 25 UNIT SQ (21:21)
[2025-05-07] VITALS (73 sets, daily range): BP systolic 128–155; BP diastolic 55–64; PULSE 62–86; TEMP 36.4–37.1; O2SAT 81–100
[2025-05-07] MEDS: FUROSEMIDE 40 MG/4 ML VIAL IVP ×2 (06:13→17:09)
[2025-05-07] MEDS: HEPARIN SODIUM (PORCINE) 5,000 UNIT/ML VIAL 5000 UNIT SUBQ ×3 (06:14→21:15)
[2025-05-07] MEDS: PANTOPRAZOLE SODIUM 40 MG TABLET.DR PO (06:14)
[2025-05-07 06:45] LABS: Anion Gap 9.7; Blood Urea Nitrogen 65.0 mg/dL (7.0-18.0); Calcium 9.2 mg/dL (8.5-10.1); Carbon Dioxide 34.6 mmol/L (21.0-32.0); Chloride 95 mmol/L (98-107); Estimated GFR (African America 30 (>=60 mL/min/1.73m^2); Estimated GFR (Non-African Ame 24 (>=60 mL/min/1.73m^2); Glucose 145 mg/dL (74-106); Potassium 4.3 mmol/L (3.5-5.1); Sodium 135 mmol/L (136-145)
[2025-05-07] MEDS: ALLOPURINOL 300 MG TABLET PO (08:00)
[2025-05-07] MEDS: ASPIRIN 81 MG TABLET.DR PO (08:00)
[2025-05-07] MEDS: ENSURE HP 237 ML LIQUID PO (08:00)
[2025-05-07] MEDS: CHOLECALCIFEROL (VITAMIN D3) 125 MCG/5,000 UNIT TABLET PO (08:00)
[2025-05-07] MEDS: CARVEDILOL 3.125 MG TABLET PO ×2 (08:00→21:15)
[2025-05-07] MEDS: CLOPIDOGREL BISULFATE 75 MG TABLET PO (08:00)
--- NOTE | 2025-05-07 11:19 | PT.DAILY ---
Physical Therapy Daily Note PT Daily Note/Assess Start: 05/03/25 12:45 Freq: Status: Active Protocol: Document 05/07/25 10:20 ESSHAY (Rec: 05/07/25 11:17 ESHUSTEVEN [id number]) Physical Therapy Daily Note/Assessment Time In/Time Out Time In 10:20 Time Out 10:53 Subjective Subjective Patient reports having a hard time waking up this morning but agrees to PT. Denies pain. Therapeutic Exercise Time Therapeutic Exercise 15 Minutes (minutes) Therapeutic Exercise 1 Units Therapeutic Exercise Treatment Therapeutic Exercise Supine exercises with QS, GS, TA isometric, heel slides Treatment , SLR 12 times each Seated exercises with AP's, LAQ, Marches, hip adduction squeeze 12x each Standing exercises with marches 8x Therapeutic Activity Time Therapeutic Activity 15 Minutes (minutes) Therapeutic Activity 1 Units Therapeutic Activity Treatment Bed Mobility Ability Moderate Assist Chair Transfer Contact Guard Assist,Minimum Assist Ability Therapeutic Activity Supine to sit mod assist with most help given weight Comments shifting to scoot to EOB. Sit to stand from EOB CGA 2x Sit to stand from lower chair min assist 1x Gait 10' x 1 and 8'x1 with CGA/SBA Total Physical Therapy Time Total Therapy 30 Minutes Total Physical 2 Therapy Units Summary Daily Note Summary Patient demonstrates improved ability with bed mobility . Requires short therapeutic breaks during gait and transfers as SPO2 will drop into lower 80's but then quickly rises with breathing techniques and rest. Progressed exercise program with reps and added exercises. Patient reports feeling better and able to do more each day. Patient in chair with call light in reach and all needs met post RX. Patient daughter also present in room.
[2025-05-07] MEDS: INSULIN ASPART 300 UNIT/3 ML PEN SUBQ (11:31)
--- NOTE | 2025-05-07 13:35 | PM.IMPN1 ---
Progress Note: A&P Assessment and Plan (1) Acute exacerbation of CHF (congestive heart failure): Qualifiers: Heart failure type: unspecified Qualified Code(s): I50.9 - Heart failure, unspecified (2) CKD (chronic kidney disease): Qualifiers: Chronic kidney disease stage: stage 4 (GFR 15-29) Qualified Code(s): N18.4 - Chronic kidney disease, stage 4 (severe) (3) Pyelonephritis: (4) Gait instability: (5) Type 2 diabetes mellitus with diabetic neuropathy, unspecified: Qualifiers: Diabetes mellitus ad terminal makeup operator insulin use: unspecified group home insulin use status Qualified Code(s): E11.40 - Type 2 diabetes mellitus with diabetic neuropathy, unspecified (6) CAD (coronary artery disease): Qualifiers: Coronary Disease-Associated Artery/Lesion type: [place] artery [place] vs. transplanted heart: [place] heart Associated angina: without angina Qualified Code(s): I25.10 - Atherosclerotic heart disease of [place] coronary artery without angina pectoris (7) Diabetes: Qualifiers: Diabetes mellitus type: type 2 Diabetes mellitus group home insulin use: with ad terminal makeup operator use Diabetes mellitus complication status: with kidney complications Diabetes mellitus complication detail: with chronic kidney disease Chronic kidney disease stage: stage 3 (moderate) Chronic kidney disease stage 3 subtype: stage 3b (GFR 30-44) Qualified Code(s): E11.22 - Type 2 diabetes mellitus with diabetic chronic kidney disease; N18.32 - Chronic kidney disease, stage 3b; Z79.4 - alf (current) use of insulin (8) Peripheral arterial disease: (9) Stage 3b chronic kidney disease (CKD): (10) HTN (hypertension): Qualifiers: Hypertension 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 Qualified Code(s): I15.2 - Hypertension secondary to endocrine disorders (11) History of aortic bifurcation bypass graft: (12) S/P triple vessel bypass: Plan Acute hypoxic respiratory failure in the setting of acute exacerbation of HFpEF (TTE on 05/02/25 showed EF 55%) Complicated UTI- due to Klebsiella Pneumonia ESBL , with significant history of previous Klebsiella UTI and stents exchange back in April 2025 Hyponatremia likely in the setting of fluid overload, asymptomatic and chronic Frailty and debility -Continue IV diuresis with lasix 40 mg IV bid till able to wean supplemental O2, transition to oral on discharge -Monitor kidney function, stable and improving so far -Urine culture came back positive for Klebsiella pneumonia, final culture showed ESBL, patient has been on Levaquin which is appropriate and sensitive. Continue to complete course -Continue fluid and sodium restriction - Continue to participate with PT/OT - DVT prophylaxis with HSQ - advertising campaign manager following regarding - Pending decision from inpatient rehab at [facility] - anticipate d/c to SNF Discussed with patient and family at bedside, all question answered, they are in agreement with above plan Diet: Cardiac Daily Labs: CBC, BMP Lines/Drains: PIV, nielsen due to incontinence and poor ambulation, plan for d/c tomorrow DVT ppx: Lovenox Code status: Full Status: inpatient for IV diuresis and hypoxia Internal Medicine - PN: Subj Subjective Interval history: Continues to feel fatigued, currently out of bed in chair, daughter at bedside. Denies any fevers, chills, nausea, vomiting. Exam Narrative Exam Narrative: General: cooperative and tired appearing Orientation: alert, awake and oriented x3 Head: normal to inspection Neck: normal visual inspection Cardio: slight hepatojugular reflux present, regular rate, regular rhythm Chest palpation & inspection: normal inspection of the chest Resp Effort & Inspection: normal respiratory effort, bilateral bibasilar rales present Abd: soft, non-tender, non-distended Extremities: Warm well perfused, no edema Constitutional Vital Signs, click to edit/add: Last Vital Signs Temp 97.8 F 05/07/25 07:14 Pulse 73 05/07/25 12:27 Resp 20 05/06/25 19:48 BP 128/64 05/07/25 07:12 Pulse Ox 97 05/07/25 10:10 O2 Del Method Nasal Cannula 05/07/25 12:00 O2 Flow Rate 2 05/07/25 12:00 Internal Medicine - PN: Obj Da Labs Labs: Laboratory Results - last 24 hr 05/06/25 05/06/25 05/07/25 16:59 21:12 06:11 Sodium 135 L Potassium 4.3 Chloride 95 L Carbon Dioxide 34.6 H Anion Gap 9.7 BUN 65.0 H Creatinine 1.97 H Est GFR ( Amer) 30 L Est GFR (Non-Af Amer) 24 L BUN/Creatinine Ratio 33.0 Glucose 145 H Calcium 9.2 POC Glucose 252 H 210 H Urinary Catheter Management Urinary Catheter Management Urethral: Cath placed during this visit: yes Urethral indwelling: Yes Reason for continuing: measure accurate output Insertion date: 05/02/25 Insertion time: 14:29
--- NOTE | 2025-05-07 15:48 | PC.NURSE ---
after nurse adjusts pts SpO2 monitor on finger, pt previously had a consistent uniform waveform with SpO2 of 84%, pts visitor at bedside states pt was waving her hands around while talking. Pt states to nurse that she's not comfortable, nurse asks if she needs pulled up in bed or a different position and how she transfers. pt states no, and not well. pt states she just means that she doesn't feel well like she can't breathe well, pt then asks about when her lasix is due and her visitor asks what the milligrams of the lasix is that the pt is taking. Nurse states she is unsure of dosage and when medication is due, however nurse will find pts nurse and send her in or look into it herself. Allopathic Doctor called as this nurse could not get ahold of pts nurse and the pts nurse was with pest management supervisor helping. pts nurse updated on SpO2 ranges and pt complaints, then goes to pts room to care for pt.
[2025-05-07] MEDS: DICLOFENAC SODIUM 1% 100 GM TUBE TOPICAL (21:12)
[2025-05-07] MEDS: INSULIN GLARGINE 300 UNIT/3 ML INSULN.PEN 25 UNIT SQ (21:13)
[2025-05-07] MEDS: ACETAMINOPHEN 500 MG TABLET 1000 MG PO (21:15)
[2025-05-07] MEDS: GABAPENTIN 100 MG CAPSULE PO (21:15)
[2025-05-07] MEDS: ATORVASTATIN CALCIUM 20 MG TABLET PO (21:16)
[2025-05-08] VITALS (80 sets, daily range): BP systolic 137–181; BP diastolic 51–77; PULSE 64–89; RESP 18; TEMP 36.4–36.6; O2SAT 85–100
[2025-05-08] MEDS: HEPARIN SODIUM (PORCINE) 5,000 UNIT/ML VIAL 5000 UNIT SUBQ ×2 (06:21→14:08)
[2025-05-08] MEDS: PANTOPRAZOLE SODIUM 40 MG TABLET.DR PO (06:21)
[2025-05-08] MEDS: FUROSEMIDE 40 MG/4 ML VIAL IVP ×2 (06:21→17:09)
[2025-05-08] MEDS: ALLOPURINOL 300 MG TABLET PO (08:01)
[2025-05-08] MEDS: CLOPIDOGREL BISULFATE 75 MG TABLET PO (08:02)
[2025-05-08] MEDS: ASPIRIN 81 MG TABLET.DR PO (08:02)
[2025-05-08] MEDS: CARVEDILOL 3.125 MG TABLET PO (08:02)
--- NOTE | 2025-05-08 10:34 | P.IMPN_ITS ---
Progress Note: A&P Assessment and Plan (1) Acute exacerbation of CHF (congestive heart failure): Qualifiers: Heart failure type: unspecified Qualified Code(s): I50.9 - Heart failure, unspecified (2) CKD (chronic kidney disease): Qualifiers: Chronic kidney disease stage: stage 4 (GFR 15-29) Qualified Code(s): N18.4 - Chronic kidney disease, stage 4 (severe) (3) Pyelonephritis: (4) Gait instability: (5) Type 2 diabetes mellitus with diabetic neuropathy, unspecified: Qualifiers: Diabetes mellitus rodent exterminator insulin use: unspecified correction insulin use status Qualified Code(s): E11.40 - Type 2 diabetes mellitus with diabetic neuropathy, unspecified (6) CAD (coronary artery disease): Qualifiers: Associated angina: without angina Coronary Disease-Associated Artery/Lesion type: [place] artery [place] vs. transplanted heart: [place] heart Qualified Code(s): I25.10 - Atherosclerotic heart disease of [place] coronary artery without angina pectoris (7) Diabetes: Qualifiers: Chronic kidney disease stage: stage 3 (moderate) Chronic kidney disease stage 3 subtype: stage 3b (GFR 30-44) Diabetes mellitus complication detail: with chronic kidney disease Diabetes mellitus complication status: with kidney complications Diabetes mellitus correction insulin use: with correction use Diabetes mellitus type: type 2 Qualified Code(s): E11.22 - Type 2 diabetes mellitus with diabetic chronic kidney disease; N18.32 - Chronic kidney disease, stage 3b; Z79.4 - senior care (current) use of insulin (8) Peripheral arterial disease: (9) Stage 3b chronic kidney disease (CKD): (10) HTN (hypertension): Qualifiers: Hypertension 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 Qualified Code(s): I15.2 - Hypertension secondary to endocrine disorders (11) History of aortic bifurcation bypass graft: (12) S/P triple vessel bypass: Plan Acute hypoxic respiratory failure in the setting of acute exacerbation of HFpEF (TTE on 05/02/25 showed EF 55%) Complicated UTI- due to Klebsiella Pneumonia ESBL , with significant history of previous Klebsiella UTI and stents exchange back in April 2025 Hyponatremia likely in the setting of fluid overload, asymptomatic and chronic Frailty and debility - O2 needs increasing, with slight but continued increase in Cr and BUN. Repeat CT abdomen w/o contrast shows persistent bilateral nephrosis, mild improvement from previous. [facility] accepted to [facility] for HFpEF exacerbation but with recommendation to re- engage urology to determine management of hydronephrosis. - Recommended VQ scan and lower extremity doppler to r/o PE per [facility] - Will increase antibiotics back to IV zosyn - continue diuresis with lasix 40 mg IV bid - check ABG and start bipap if needed -Monitor kidney function, stable and improving so far -Urine culture came back positive for Klebsiella pneumonia, final culture showed ESBL -Continue fluid and sodium restriction - Continue to participate with PT/OT - DVT prophylaxis with HSQ - recruiter account manager following regarding - anticipate d/c to SNF Discussed with patient and family at bedside, all question answered, they are in agreement with above plan Diet: Cardiac Daily Labs: CBC, BMP Lines/Drains: PIV, nielsen due to incontinence and poor ambulation DVT ppx: Lovenox Code status: Full Status: inpatient for IV diuresis and hypoxia Internal Medicine - PN: Subj Subjective Interval history: Remains subjectively dyspneic at rest, fatigued appearing but not in visible distress. Denies any fevers, chills, nausea, vomiting. Family at bedside. Exam Narrative Exam Narrative: General: cooperative and tired appearing Orientation: alert, awake and oriented x3 Head: normal to inspection Neck: normal visual inspection Cardio: +hepatogjugular reflux, regular rate, regular rhythm Chest palpation & inspection: normal inspection of the chest Resp Effort & Inspection: shallow respiratory effort, bilateral rales present Abd: soft, non-tender, non-distended Extremities: Warm well perfused, 3+ bilateral LE edema Constitutional Vital Signs, click to edit/add: Last Vital Signs Temp 97.6 F 05/08/25 08:00 Pulse 74 05/08/25 10:14 Resp 18 05/08/25 03:59 BP 149/51 H 05/08/25 07:59 Pulse Ox 99 05/08/25 10:15 O2 Del Method Nasal Cannula 05/08/25 08:00 O2 Flow Rate 3 05/08/25 08:00 Internal Medicine - PN: Obj Da Labs Labs: Laboratory Results - last 24 hr 05/07/25 05/07/25 05/07/25 11:31 16:03 21:11 POC Glucose 208 H 142 H 122 H 05/08/25 05/08/25 04:49 07:58 POC Glucose 84 76 Urinary Catheter Management Urinary Catheter Management Urethral: Cath placed during this visit: yes Urethral indwelling: Yes Reason for continuing: measure accurate output Insertion date: 05/02/25 Insertion time: 14:29
[2025-05-08 11:09] LABS: Hematocrit 28.3 % (36.0-48.0); Hemoglobin 8.6 g/dL (12.0-16.0); Immature Granulocytes Abs Auto 0.05 10^3/uL (0.00-0.03); Immature Granulocytes Pct Auto 0.6 % (0.0-0.5); Lymphocytes Absolute Auto 1.7 10^3/uL (1.2-3.8); Mean Corpuscular HGB Conc 30.4 g/dL (29.9-35.2); Mean Corpuscular Hemoglobin 30.9 pg (26.7-34.0); Mean Corpuscular Volume 101.8 fL (81.0-99.0); Platelet Count 234 10^3/uL (150-450); Red Blood Count 2.78 10^6/uL (4.20-5.40); White Blood Count 8.7 10^3/uL (4.0-11.0)
--- NOTE | 2025-05-08 11:20 | CT_ITS ---
The [address] [address] Patient Name: ESTHER TATUM MRN: [id number] date: 1945 Sex: F Assigned Patient Location: [place] Current Patient Location: [place] Accession/Order Number: [id number] Exam Date: 05/08/2025 11:30 Report Date: 05/08/2025 13:55 At the request of: QUINN LEAL MD Procedure: CT abdomen pelvis wo con CT Abdomen and Pelvis withoutcontrast TECHNIQUE: Axial imaging with 2-D reconstruction. The CT exam was performed using one or more the following dose reduction techniques: Automated exposure control, adjustment of the MA and/or Kv according to patient size, or use of the iterative reconstruction technique. COMPARISON: 05/02/2025 History: Subsequent imaging for hydronephrosis. LIMITATIONS: None LOWER THORAX small low density layering pleural effusions are redemonstrated. Similar adjacent atelectasis. LIVER: Ill-defined 3 cm hepatic dome lesion. GALLBLADDER: Small gallstones BILE DUCTS: No dilatation SPLEEN: Unremarkable PANCREAS: Unremarkable ADRENAL GLANDS: Stable fatty nodule of the right adrenal nodule. Left adrenal nodule unremarkable. KIDNEYS:Similar bilateral perinephric stranding. Redemonstration of air within the intrarenal collecting system. Mild reduction of bilateral hydronephrosis. Bilateral ureteral stents in place. Small left renal cyst unchanged. No developing abscess. AORTA: The aortobiiliac stent graft. Right common and external iliac stent. Large volume of atherosclerosis throughout the abdomen and pelvis. RETROPERITONEUM: No significant retroperitoneal abnormalities identified. MESENTERY:Unremarkable STOMACH:Unremarkable SMALL BOWEL: The small bowel loops are nondistended. APPENDIX: The appendix is normal. COLON: Similar diverticulosis. URINARY BLADDER: Tovar catheter and nondistended urinary bladder. REPRODUCTIVE SYSTEM: Similar calcified fibroids PNEUMOPERITONEUM: None PERITONEAL FLUID:None BONY STRUCTURES: Left hip arthroplasty. ABDOMINAL WALL: Similar anasarca CT/CT abdomen pelvis wo con IMPRESSION: Similar small pleural effusions with adjacent atelectasis. Cholelithiasis. Stable right adrenal myolipoma. Bilateral hydronephrosis, improved. Air within the intrarenal collecting systems consistent with catheter insertion. Ureter catheters unchanged. No developing abscess. Infection not entirely excluded. Diverticulosis. Atherosclerosis. Fibroid uterus. 3 cm hepatic dome lesion. May consider further assessment with MRI of the abdomen with and without contrast Impression dictated by: Gary Sparrow M.D. 05/08/2025 1:55 PM Dictation Location: [place] [address] Electronically authenticated by: [id number] Y Date: 05/08/2025 13:55
[2025-05-08 11:26] LABS: Anion Gap 11.8; Blood Urea Nitrogen 68.0 mg/dL (7.0-18.0); Calcium 9.1 mg/dL (8.5-10.1); Carbon Dioxide 34.3 mmol/L (21.0-32.0); Chloride 92 mmol/L (98-107); Estimated GFR (African America 29 (>=60 mL/min/1.73m^2); Estimated GFR (Non-African Ame 24 (>=60 mL/min/1.73m^2); Glucose 157 mg/dL (74-106); Potassium 4.1 mmol/L (3.5-5.1); Sodium 134 mmol/L (136-145)
--- NOTE | 2025-05-08 15:31 | XR_ITS ---
[facility] [place] [id number] Patient Name: ESTHER TATUM MRN: [id number] date: 1945 Sex: F Assigned Patient Location: [place] Current Patient Location: Accession/Order Number: [id number] Exam Date: 05/08/2025 16:20 Report Date: 05/08/2025 17:08 At the request of: QUINN LEAL MD Procedure: XR chest 1V Single view chest compared to CT chest 05/02/2025 HISTORY: Increasing shortness of breath. Cardiomegaly and hilar vascular prominence. CABG. Atherosclerosis of thoracic aorta. Diffuse groundglass parenchymal densities and minimal basilar pleural reactions. XR/XR chest 1V IMPRESSION: CHF findings. Impression dictated by: Gary Sparrow M.D. 05/08/2025 5:08 PM Dictation Location: [place] [address] Electronically authenticated by: [id number] Y Date: 05/08/2025 17:08
[2025-05-08 15:58] LABS: HCO3 ABG 35.8 mmol/L (22.0-26.0)
[2025-05-08 15:59] LABS: Allen Test POSITIVE (POSITIVE); Liters per Minute 4L; O2 Mode NASAL CANNULA; Oxygen Saturation ABG 91.7 %; Puncture Site RT RADIAL
[2025-05-08 16:01] LABS: ABG PCO2 62.0 mmHg (35.0-45.0); PO2 ABG 59.6 mmHg (80.0-100.0)
[2025-05-08] MEDS: PIPERACILLIN SODIUM/TAZOBACTAM 3.375 GM in 0.9 % SODIUM CHLORIDE 50 ML IV (16:11)
--- NOTE | 2025-05-08 18:40 | PC.NURSE ---
bedside report given to [facility]. belongings sent home with , pt kept cell phone and glasses. attempted x2 to call report to keegan lundy [phone]
--- NOTE | 2025-05-08 18:54 | PC.NURSE ---
1853 taken to exit via cart with [facility].
--- NOTE | 2025-05-08 18:57 | PM.DS1 ---
DS: Providers Provider Date of admission: 05/02/25 13:23 Primary care physician: Olivia Cazares MD Admitting clinician: JEISON GONZALEZ Attending physician on admission: JEISON GONZALEZ Consults: 05/02/25 Consult to Dietitian Routine Reason for consultation: diabetic 05/02/25 12:39 Consult to Cardiology Routine Reason for consultation: CHF exacerbation 05/02/25 13:46 Consult to Urology Routine Consulting Provider: Yaniv Natarajan Reason for consultation: UTI, stents in place 05/02/25 13:49 Physical Therapy Eval and Treat Routine Reason for consultation: Weakness 05/02/25 16:32 Consult to Pharmacy Routine Consulting Provider: Reason for consultation: Levaquin dosing in CKD stage 4 for UTI, i have no other option except Merop 05/04/25 Occupational Therapy Eval and Treat Routine Reason for consultation: Weakness Has provider been notified: Yes 05/08/25 15:31 Consult to Urology Routine Consulting Provider: Yaniv Natarajan Reason for consultation: worsening volume status with persistent hydronephrosis Attending physician on discharge: QUINN LEAL Discharging clinician: QUINN LEAL Anticipated date of discharge: 05/08/25 DS: Diagnosis Discharge Diagnosis (1) Acute exacerbation of CHF (congestive heart failure): Qualifiers: Heart failure type: unspecified Qualified Code(s): I50.9 - Heart failure, unspecified (2) CKD (chronic kidney disease): Qualifiers: Chronic kidney disease stage: stage 4 (GFR 15-29) Qualified Code(s): N18.4 - Chronic kidney disease, stage 4 (severe) (3) Pyelonephritis: (4) Gait instability: (5) Type 2 diabetes mellitus with diabetic neuropathy, unspecified: Qualifiers: Diabetes mellitus senior care insulin use: unspecified senior care insulin use status Qualified Code(s): E11.40 - Type 2 diabetes mellitus with diabetic neuropathy, unspecified (6) CAD (coronary artery disease): Qualifiers: Associated angina: without angina Coronary Disease-Associated Artery/Lesion type: [place] artery [place] vs. transplanted heart: [place] heart Qualified Code(s): I25.10 - Atherosclerotic heart disease of [place] coronary artery without angina pectoris (7) Diabetes: Qualifiers: Chronic kidney disease stage: stage 3 (moderate) Chronic kidney disease stage 3 subtype: stage 3b (GFR 30-44) Diabetes mellitus complication detail: with chronic kidney disease Diabetes mellitus complication status: with kidney complications Diabetes mellitus senior care insulin use: with senior care use Diabetes mellitus type: type 2 Qualified Code(s): E11.22 - Type 2 diabetes mellitus with diabetic chronic kidney disease; N18.32 - Chronic kidney disease, stage 3b; Z79.4 - shelter (current) use of insulin (8) Peripheral arterial disease: (9) Stage 3b chronic kidney disease (CKD): (10) HTN (hypertension): Qualifiers: Hypertension 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 Qualified Code(s): I15.2 - Hypertension secondary to endocrine disorders (11) History of aortic bifurcation bypass graft: (12) S/P triple vessel bypass: DS: Summary Hospital Course Hospital Course: Lexi Cm is a 79 y.o female with past medical hx of CKD stage IV, frailty, CHF, gout, PAD, hypertension, recent admission for septic shock secondary to pyelonephritis with stents in the ureters were exchanged, retroperitoneal fibrosis, was discharged on cefuroxime. Patient is brought in from the correction on 05/02/25, states that over the last few days she has been having confusion along with chills but no nausea or vomiting and complains of bilateral slight flank pain and urinary frequency and straining to urinate. Admitted for complicated UTI and also found to have volume overload, echocardiogram showed preserved LV ejection fraction 55%. CMP showed sodium of 129, potassium 5.2, BUN of 70 with creatinine of 2.08. Her troponin was 17 but her BNP was 11,105. CT on admission showed bilateral pleural effusions with bilateral hydronephrosis. Case was discussed with urology, no need for emergent evaluation, started on antibiotics and lasix 40 mg IV bid. Did have persistent O2 requirements, 2 L NC. Responded to diuresis with continued urine output, however was unable to wean from nasal cannula and had rising requirements from 05/06 to 05/08/25. Creatinine initially reduced to baseline 1.8 over course of admission but started to rising again with subjective shortness of breath. ABG on 05/08/25 showed pH 7.37, pCO2 65, pO2 59.6, started on bipap therapy with clinical improvement. CT abdomen showed persistent bilateral hydronephrosis and bilateral pleural effusions despite net negative 6.7 L. Due to worsening anasarca despite diuresis and persistent hydronephrosis of unclear significance (potential septic source / contributing to renal dysfunction), patient transferred to [facility] on 05/08/25. Time Spent with Patient Time attestation: Total time spent providing and/or coordinating discharge services: Exam Narrative Exam Narrative: General: cooperative and tired appearing Orientation: alert, awake and oriented x3 Head: normal to inspection Neck: normal visual inspection Cardio: no JVD, regular rate, regular rhythm Chest palpation & inspection: normal inspection of the chest Resp Effort & Inspection: shallow respiratory effort, diffuse bilateral rales Abd: soft, non-tender, non-distended Extremities: Warm well perfused, 3+ pitting edema bilateral LE Constitutional Vital Signs, click to edit/add: Last Vital Signs Temp 97.6 F 05/08/25 08:00 Pulse 80 05/08/25 17:48 Resp 18 05/08/25 03:59 BP 175/77 H 05/08/25 16:26 Pulse Ox 100 05/08/25 16:35 O2 Del Method Nasal Cannula 05/08/25 16:00 O2 Flow Rate 4 05/08/25 16:00 FiO2 45 05/08/25 16:35 DS: Data Data Completed and Pending Labs on day of discharge: Labs from last 24 hours 05/08/25 05/08/25 05/08/25 16:10 15:48 11:54 WBC RBC Hgb Hct MCV MCH MCHC RDW Plt Count MPV Neut % (Auto) Lymph % (Auto) [place] % (Auto) Eos % (Auto) Baso % (Auto) Neut # (Auto) Lymph # (Auto) [place] # (Auto) Eos # (Auto) Baso # (Auto) Abs Immat Gran (auto) Imm/Tot Granulo (auto) Puncture Site Rt radial ABG pH 7.370 ABG pCO2 62.0 H* ABG pO2 59.6 L* ABG HCO3 35.8 H ABG O2 Saturation 91.7 ABG Base Excess 10.5 H Marcos Test Positive O2 Liters/Min 4l Sodium Potassium Chloride Carbon Dioxide Anion Gap BUN Creatinine Est GFR ( Amer) Est GFR (Non-Af Amer) BUN/Creatinine Ratio Glucose Calcium POC Glucose 155 H 131 H 05/08/25 05/08/25 05/08/25 10:54 07:58 04:49 WBC 8.7 RBC 2.78 L Hgb 8.6 L Hct 28.3 L MCV 101.8 H MCH 30.9 MCHC 30.4 RDW 16.2 H Plt Count 234 MPV 11.0 Neut % (Auto) 71.2 Lymph % (Auto) 19.6 L [place] % (Auto) 6.3 Eos % (Auto) 2.0 Baso % (Auto) 0.3 Neut # (Auto) 6.2 Lymph # (Auto) 1.7 [place] # (Auto) 0.6 Eos # (Auto) 0.2 Baso # (Auto) 0.0 Abs Immat Gran (auto) 0.05 H Imm/Tot Granulo (auto) 0.6 H Puncture Site ABG pH ABG pCO2 ABG pO2 ABG HCO3 ABG O2 Saturation ABG Base Excess Marcos Test O2 Liters/Min Sodium 134 L Potassium 4.1 Chloride 92 L Carbon Dioxide 34.3 H Anion Gap 11.8 BUN 68.0 H Creatinine 2.02 H Est GFR ( Amer) 29 L Est GFR (Non-Af Amer) 24 L BUN/Creatinine Ratio 33.7 Glucose 157 H Calcium 9.1 POC Glucose 76 84 05/07/25 21:11 WBC RBC Hgb Hct MCV MCH MCHC RDW Plt Count MPV Neut % (Auto) Lymph % (Auto) [place] % (Auto) Eos % (Auto) Baso % (Auto) Neut # (Auto) Lymph # (Auto) [place] # (Auto) Eos # (Auto) Baso # (Auto) Abs Immat Gran (auto) Imm/Tot Granulo (auto) Puncture Site ABG pH ABG pCO2 ABG pO2 ABG HCO3 ABG O2 Saturation ABG Base Excess Marcos Test O2 Liters/Min Sodium Potassium Chloride Carbon Dioxide Anion Gap BUN Creatinine Est GFR ( Amer) Est GFR (Non-Af Amer) BUN/Creatinine Ratio Glucose Calcium POC Glucose 122 H Discharge Plan Discharge Disposition: [facility] Condition: Serious Discharge Date/Time: 05/08/25 18:53 Discharge Location: [facility]
== END 2025-05-08 18:53 | disposition short-term general hospital (02) | DRG 291 ==
LOC: ER 12:29 → MS 13:31
PROVIDERS: Student in an Organized Health Care Education/Training Program; Admitting Provider Student in an Organized Health Care Education/Training Program; Emergency Provider Emergency Medicine; PCP Family Medicine; Visit Provider Internal Medicine
DX: I13.0 Hypertensive heart and chronic kidney disease with heart failure and stage 1 through stage 4 chronic kidney disease, or unspecified chronic kidney disease (principal); I50.33 Acute on chronic diastolic (congestive) heart failure; J96.01 Acute respiratory failure with hypoxia; N12 Tubulo-interstitial nephritis, not specified as acute or chronic; N17.9 Acute kidney failure, unspecified; E87.1 Hypo-osmolality and hyponatremia; Z16.12 Extended spectrum beta lactamase (ESBL) resistance; N13.6 Pyonephrosis; E11.22 Type 2 diabetes mellitus with diabetic chronic kidney disease; E11.40 Type 2 diabetes mellitus with diabetic neuropathy, unspecified; R26.89 Other abnormalities of gait and mobility; Z87.440 Personal history of urinary (tract) infections; R54 Age-related physical debility; Z87.891 Personal history of nicotine dependence; E11.51 Type 2 diabetes mellitus with diabetic peripheral angiopathy without gangrene; Z79.82 Long term (current) use of aspirin; Z79.4 Long term (current) use of insulin; Z79.899 Other long term (current) drug therapy; Z96.649 Presence of unspecified artificial hip joint; Z95.1 Presence of aortocoronary bypass graft; Z95.828 Presence of other vascular implants and grafts; Z98.891 History of uterine scar from previous surgery; I25.10 Atherosclerotic heart disease of native coronary artery without angina pectoris; Z96.0 Presence of urogenital implants; I27.20 Pulmonary hypertension, unspecified; B96.1 Klebsiella pneumoniae [K. pneumoniae] as the cause of diseases classified elsewhere; N18.32 Chronic kidney disease, stage 3b
CPT/HCPCS: 36415; 36600; 51702; 70450; 71045; 71250; 74176; 80048; 80053; 81001; 82800; 82805; 82948; 83605; 83735; 83880; 83930; 84100; 84300; 84484; 85025; 85610; 85730; 86140; 87040; 87086; 87088; 87186; 87804; 87811; 93005; 93306; 94660; 94761; 96374; 97110; 97163; 97165; 97530; 97535; 99285; J0780; J1644; J1938; J2543

== ENCOUNTER 2025-05-21 09:58 | Emergency (ER) | payer MEDICARE, SELFPAY ==
--- OUTSIDE RECORDS SUMMARY | 2024-03-01 08:00 | XMS_ITS ---
Author Organization The [facility] [place] Address [address] [place] [address] Care Team Providers Care Skein Yarn Dyer Helper Name Role Phone Olivia Cazares Primary Care Provider Annie Alcantara Unavailable [phone] REASON FOR VISIT nails Encounters Encounter Location Date Provider Diagnosis [facility] (PODIATRY) [address] [place] [address] [place] [address] 03/01/2024 Annie Gasca Plan Of Treatment No Information Progress Notes * LUCRECIALATRICIAMaría MARTINEZra LDOB:1944 (79 yo F)Acc No.[id number]:03/01/2024 UNLOCKED PROGRESS NOTE Nurse Visit Patient: Lexi SALAZAR Nestor :?RAMON HernandezCDOB:1945???Age:78 Y ???Sex:FemaleDate:4Phone:[phone]:[address] [place], [place] [id number]:Olivia Cazares Subjective: * Chief Complaints: * 1 . Nails. * Medical History: Objective: * Vitals: Assessment: Plan: * Treatment: * * Electronic signature of Annie Gasca PA-C on 05/21/2025 at 10:33 AM ESTSign off status: PendingVisit Status:?CANC (Cancelled) * Provider: Azul Gasca PA-C Date: 0 03/01/2024 Generated for Printing/Faxing/eTransmitting on:?05/21/2025 10:33 AM EST
--- OUTSIDE RECORDS SUMMARY | 2024-08-02 10:30 | XMS_ITS ---
Author Organization The [facility] in [place] Address [address] [place] [address] Care Team Providers Care Strategic Intelligence Officer Name Role Phone Olivia Cazares Primary Care Provider Annie Alcantara Unavailable [phone] Allergies No Known Allergies REASON FOR VISIT Nail Care Medications Medication SIG (Take, Route, Frequency, Duration) Notes Start Date End Date Status Gabapentin 300 MG 1 capsule Orally Twice a Day ActiveVitamin D3 125 MCG (5000 UT)1 capsule Orally Once a dayActiveoxyBUTYnin Chloride 5 MG1 tablet Orally Once a dayActiveRosuvastatin Calcium 5 MG1 tablet Orally Once a dayActivePotassium Chloride 10 MEQ/100MLas directed Intravenous ActiveColaceActiveClopidogrel Bisulfate 75 MG1 tablet Orally Once a dayActive Furosemide 40 MG1 tablet Orally Once a dayActiveCarvedilol 25 MG1 tablet with food Orally Twice a day11/27/2023ctiveAspirin 81 MG1 tablet Orally Once a day ActiveAllopurinol 300 MG1 tablet Orally Once a dayActive Social History Tobacco Use: Social History Observation Description Date Details (start date - stop date) Former Smoker NA - NA Tobacco Control (Standard) Question Answer Notes Tobacco use: Former smoker Vital Signs Temperature 97.1 degrees Fahrenheit 08/02/19 25 Heart Rate 75 /min 08/02/2024 Height 59 in 08/02/2024 Weight 165 lbs 08/02/2024 BMI 33.32 kg/m2 08/02/2024 Oximetry 98 % 08/02/2024 Encounters Encounter Location Date Provider Diagnosis [facility] (PODIATRY) [address] [place] [address] [place] [address] 08/02/2024 Annie Gasca Type 2 diabetes mellitus with other specified complication E11.69 ; Pain in left toe(s) M79.675 and Peripheral vascular disease, unspecified I73.9 Assessments Encounter Date Diagnosis (ICD Code) Assessment Notes Treatment Notes Treatment Clinical Notes Section Notes 08/02/2024 Type 2 diabetes cheyenne itus with other specified complication (ICD-10 - E11.69) 08/02/2024Pain in left toe(s) (ICD-10 - M79.675)08/02/2024Peripheral vascular disease, unspecified (ICD-10 - I73.9) Plan Of Treatment No Information Progress Notes * Lexi CM LDOB:1944 (79 yo F)Acc No.[id number]:08/02/2024 UNLOCKED PROGRESS NOTE Nurse Visit Patient: Lexi SALAZAR :?Annie RAMON GascaCDOB:1945???Age:79 Y ???Sex:FemaleDate:08/02/2024Phone:[phone]:[address] [place], [place] [id number]:Olivia Watson In:03:17 PM ESTCheck Out:03:39 PM EST Subjective: * Chief Complaints: * 1 . Nail Care. * HPI: ???General:? Nails 1-10? were trimmed and filed down to patients liking. No area of concern to toes. * Medical History: A rthritis, Diabetes, Heart disease, Peripheral vascular disease. * Surgical History: h eart bypass . * Family History: N o Family History documented.. * Social History: ???Tobacco Use:?Tobacco Control (Standard)?Tobacco use:?Former smoker * Medications: T aking Allopurinol 300 MG Tablet 1 tablet Orally Once a day , Taking Aspirin 81 MG Tablet Chewable 1 tablet Orally Once a day , Taking Carvedilol 25 MG Tablet 1 tablet with food Orally Twice a day , Taking Clopidogrel Bisulfate 75 MG Tablet 1 tablet Orally Once a day , Taking Colace , Taking Furosemide 40 MG Tablet 1 tablet Orally Once a day , Taking Gabapentin 300 MG Capsule 1 capsule Orally Twice a Day , Taking oxyBUTYnin Chloride 5 MG Tablet 1 tablet Orally Once a day , Taking Potassium Chloride 10 MEQ/100ML Solution as directed Intravenous , Taking Rosuvastatin Calcium 5 MG Tablet 1 tablet Orally Once a day , Taking Vitamin D3 125 MCG (5000 UT) Capsule 1 capsule Orally Once a day , Medication List reviewed and reconciled with the patient * Allergies: N .K.D.A. Objective: * Vitals: W t:165lbs, Ht: 59 in, Temp:97.1F, HR:75/min, BMI:33.32Index, Pain scale:01-10, Oxygen sat %:98%, Ht-cm: 149.86 cm, Wt-k.84 kg. Assessment: * Assessment: 1.?Type 2 diabetes mellitus with other specified complication - E11.69 (Primary)?? 2.?Pain in left toe(s) - M79.675???3.?Peripheral vascular disease, unspecified - I73.9??? Plan: * Treatment: * * Electronic signature of Annie Gasca PA-C on 05/21/2025 at 10:32 AM ESTSign off status: PendingVisit Status:?CHK (Check Out) * Provider: Azul Gasca PA-C Date: 0 08/02/2024 Generated for Printing/Faxing/eTransmitting on:?05/21/2025 10:32 AM EST History and Physical Notes * HPI (History of Present Illness) CategorySub-CategoryDetailNotesCategory NotesGeneralNails 1-10 were trimmed and filed down to patients liking. No area of concern to toes.
--- OUTSIDE RECORDS SUMMARY | 2024-10-25 10:00 | XMS_ITS ---
Author Organization The [facility] in [place] Address [address] [place] [address] Care Team Providers Care Meat Processing Center Manager Name Role Phone Olivia Cazares Primary Care Provider Annie Alcantara Unavailable [phone] REASON FOR VISIT Nail Care Encounters Encounter Location Date Provider Diagnosis [facility] (PODIATRY) [address] [place] [address] [place] [address] 10/25/2024 Annie Gasca Plan Of Treatment No Information Progress Notes * LUCRECIALATRICIAMaría MARTINEZra LDOB:1944 (79 yo F)Acc No.[id number]:10/25/2024 UNLOCKED PROGRESS NOTE Nurse Visit Patient: Lexi SALAZAR Nestor :?RAMON HernandezCDOB:1945???Age:79 Y ???Sex:FemaleDate:10/25/2024Phone:[phone]:[address] [place], [place] [id number]:Olivia Cazares Subjective: * Chief Complaints: * 1 . Nail Care. * Medical History: Objective: * Vitals: Assessment: Plan: * Treatment: * * Electronic signature of Annie Gasca PA-C on 05/21/2025 at 10:32 AM ESTSign off status: PendingVisit Status:?OFF CANC (OFFICE CANCEL) * Provider: Azul Gasca PA-C Date: 0 10/25/2024 Generated for Printing/Faxing/eTransmitting on:?05/21/2025 10:32 AM EST
--- OUTSIDE RECORDS SUMMARY | 2025-05-04 09:00 | XMS_ITS ---
Author Organization [facility] Address [address] [place] [address] [place] [address] Care Team Providers Care Joss House Keeper Name Role Phone Sage MARLOW, Olivia Primary Care Provider Unavailab Silvio Castillo Unavailable [phone] Encounters Encounter Location Date Provider Diagnosis [address] [place] [address] 05/04/2025 Silvio Cardoso Plan Of Treatment No Information Progress Notes * María CMInnaOB:[birth year] (79 yo F)Acc No.[id number]:05/04/2025 Patient:?Lexi CM :?NIKKI VillagranMDOB:1945???Age:79 Y???Sex: FemaleDate:05/04/2025Phone:[phone]:[facility] [id number]:Olivia Cazares MD Subjective: * Chief Complaints: * * Medical History: Objective: * Vitals: Assessment: Plan: * Treatment: * Images: * Electronic signature of Silvio Cardoso DPM on 05/21/2025 at 10:32 AM ESTSign off status: Pending * Provider: Chandra Cardoso DPM Date: 1 Generated for Printing/Faxing/eTransmitting on:?05/21/2025 10:32 AM EST
--- OUTSIDE RECORDS SUMMARY | 2025-05-08 10:45 | XMS_ITS | Encounter Summary ---
Author Organization [facility] Address [id number] [place] [address] Care Team Providers Care Oral And Maxillofacial Pathologist Name Role Phone Unavailable Primary Care Provider Unavailabl e Encounter Details DateTypeDepartmentCare Team (Latest Contact Info)Rkjvfnijbnb04/26/2025 11:45 AM EDTAncillary Procedure [facility] [place] [address] Pain Social History Tobacco UseTypesPacks/DayYears UsedDateSmoking Tobacco: Never AssessedPHQ-2 AnswerDate RecordedTotal [id number]-CAnswerDate RecordedQ1: How often do you have a drink containing alcohol?Never05/09/2025Q2: How many drinks containing alcohol do you have on a typical day when you are drinking?Patient does not drink05/09/2025Q3: How often do you have six or more drinks on one occasion?Never05/09/2025Overall Financial Resource Strain (CARDIA)AnswerDate RecordedHow hard is it for you to pay for the very basics like food, housing, medical care, and heating?Not hard at all05/09/2025PRAPARE - Transportation AnswerDate RecordedIn the past 12 months, has lack of transportation kept you from medical appointments or from getting medications?No05/09/2025In the past 12 months, has lack of transportation kept you from meetings, work, or from getting things needed for daily living?No05/09/2025HC UtilitiesAnswerDate RecordedIn the past 12 months has the electric, gas, oil, or water company threatened to shut off services in your home?No05/09/2025Housing InstabilityAnswerDate RecordedAre you worried or concerned that in the next two months you may not have stable housing that you own, rent or stay in as a part of a household?No 05/09/2025hildcareAnswerDate EncktuctJqrsoiybbGaokknf90/10/2019EmploymentAnswer Date ZjpbjyfwVijjgafuilIuoatca39/10/2019Hunger ScreeningAnswerDate Recorded Within the past 12 months we worried whether our food would run out before we got money to buy more.Never True05/09/2025Within the past 12 months the food we bought just didn't last and we didn't have money to get more.Never True 05/09/2025CommentsUnknownSex and Gender InformationValueDate RecordedSex Assigned at BirthNot on fileLegal SraDurhql64/26/2025 3:17 PM EDTGender Identity Not on fileSexual OrientationNot on filedocumented as of this encounter Plan of Treatment DateTypeDepartmentCare Team (Latest Contact Info)Lzzpqxcnber79/25/2025 12:00 PM ESTOffice Visit [facility] [address] [facility] [address] [place] [address] Elli Ortiz APRN-ELLIOT [address] [facility] [address] [place] [address] documented as of this encounter Procedures Procedure NamePriorityDate/TimeAssociated DiagnosisCommentsCT ABDOMEN AND PELVIS WO YIUWKezrhax59/26/2025 11:45 AM EDT Pain documented in this encounter Results * CT abdomen and pelvis without contrast (05/08/2025 11:45 AM EDT)Specimen (Source)Anatomical Location / LateralityCollection Method / VolumeCollection TimeReceived Time Narrative Authorizing ProviderResult TypeResult StatusScanning Provider ExternalIMG CT ORDERABLESFinal Result documented in this encounter Visit Diagnoses Diagnosis Pain Generalized pain documented in this encounter
--- OUTSIDE RECORDS SUMMARY | 2025-05-08 15:00 | XMS_ITS | Encounter Summary ---
Author Organization [facility] Address [id number] [address] [place] [address] Care Team Providers [employer] Chief Creative Officer Name Role Phone Unavailable Primary Care Provider Unavailabl e Encounter Details DateTypeDepartmentCare Team (Latest Contact Info)Uieptgsnwgn84/26/2025 4:00 PM EDTAncillary Procedure [facility] [address] [place] [phone] Pain Social History Tobacco UseTypesPacks/DayYears UsedDateSmoking Tobacco: Never AssessedPHQ-2 AnswerDate RecordedTotal [id number] RecordedQ1: How often do you have a [...] as a part of a household?No 05/09/2025hildcareAnswerDate MqnrljujPevzuxppaYaoypaq25/10/2019EmploymentAnswer Date XlpyptmdAiwkjoahgnNibgkpy92/10/2019Hunger ScreeningAnswerDate Recorded Within the past 12 months we worried whether our food would run out before we got money to buy more.Never True05/09/2025Within the past 12 months the food we bought just didn't last and we didn't have money to get more.Never True 05/09/2025CommentsUnknownSex and Gender InformationValueDate RecordedSex Assigned at BirthNot on fileLegal WrxUftcqt33/26/2025 3:17 PM EDTGender Identity Not on fileSexual OrientationNot on filedocumented as of this encounter Plan of Treatment DateTypeDepartmentCare Team (Latest Contact Info)Jltqgsafefg47/25/2025 12:00 PM ESTOffice Visit [facility] [address] [facility] [address] [place] [phone] Elli Ortiz APRN-ELLIOT [address] [facility] [address] [place] [address] documented as of this encounter Procedures Procedure NamePriorityDate/TimeAssociated DiagnosisCommentsXR CHEST 1 VWRoutine 05/08/2025 4:00 PM EDT Pain documented in this encounter Results * X-ray chest 1 view (05/08/2025 4:00 PM EDT)Specimen (Source)Anatomical Location / LateralityCollection Method / VolumeCollection TimeReceived Time Narrative Authorizing ProviderResult TypeResult StatusScanning Provider ExternalIMG DIAGNOSTIC IMAGING ORDERABLESFinal Result documented in this encounter Visit Diagnoses Diagnosis Pain Generalized pain documented in this encounter
--- OUTSIDE RECORDS SUMMARY | 2025-05-08 19:24 | XMS_ITS | Encounter Summary ---
Author Organization [employer] tem Address [facility] [id number] [address] 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 Name Role Phone Olivia Cazares MD Primary Care Provider [phone] Reason for Referral * Misc (Routine) - Pending ReviewSpecialtyDiagnoses / ProceduresReferred By ContactReferred To Contact Procedures Discharge Follow-Up Discharge Follow-Up Alexandra Damon APRN-CNP [address] [address] Phone: tel: fax: Referral IDStatusReasonStart DateExpiration DateVisits RequestedVisits [id number] * Misc (Routine) - Pending ReviewSpecialtyDiagnoses / ProceduresReferred By ContactReferred To Contact Procedures Discharge follow-up Janel Al MD [address] [address] Phone: tel: fax: Referral IDStatusReasonStart DateExpiration DateVisits RequestedVisits [id number] [email or web address] * Misc (Routine) - Pending ReviewSpecialtyDiagnoses / ProceduresReferred By ContactReferred To Contact Procedures Adult diet Janel Al MD [address] [place] [address] Phone: tel: fax: Referral IDStatusReasonStart DateExpiration DateVisits RequestedVisits [id number] * Misc (Routine) - Pending ReviewSpecialtyDiagnoses / ProceduresReferred By ContactReferred To Contact Procedures Discharge Follow-Up Janel Al MD [address] [place] [address] Phone: tel: fax: Referral IDStatusReasonStart DateExpiration DateVisits RequestedVisits [id number] [email or web address]/ * Misc (Routine) - Pending ReviewSpecialtyDiagnoses / ProceduresReferred By ContactReferred To Contact Procedures Discharge Follow-Up Janel Al MD [address] [facility] [address] [place] [address] Phone: tel: fax: Referral IDStatusReasonStart DateExpiration DateVisits RequestedVisits [id number] * Misc (Routine) - Pending ReviewSpecialtyDiagnoses / ProceduresReferred By ContactReferred To Contact Diagnoses Chronic hypercapnia Procedures Follow-up with primary care provider Janel Al MD [address] [place] [address] Phone: tel: fax: Referral IDStatusReasonStart DateExpiration DateVisits RequestedVisits [id number]/ * Misc (Routine) - Pending ReviewSpecialtyDiagnoses / ProceduresReferred By ContactReferred To Contact Diagnoses Urinary tract infection without hematuria, site unspecified Procedures PICC Line Removal Rohini Kimbrough, ACADEMIC HOSPITALIST-LICENSING ANALYST [address] [place] [address] Phone: tel: fax: Referral IDStatusReasonStart DateExpiration DateVisits RequestedVisits [id number] Reason for Visit * Auth/Cert (Routine)SpecialtyDiagnoses / ProceduresReferred By ContactReferred To Contact Diagnoses Acute exacerbation of CHF (congestive heart failure) ([facility]) Respiratory failure ([facility]-H[facility]) Sunshine Parikh MD [address] [place] [address] Phone: tel: fax: Referral IDStatusReasonStart DateExpiration DateVisits RequestedVisits [id number] Encounter Details DateTypeDepartmentCare Team (Latest Contact Info)Qtcublrdpxr87/26/2025 8:24 PM EDT - 05/20/2025 11:00 AM ESTHospital Encounter [facility] [address] [facility] [place] [address] Sunshine Parikh MD [address] [place] [address] Jenny Brown MD [address] [place] [address] Guy Drummond MD [address] [place] [phone] Janel Al MD [address] [facility] [address] [address] Chronic hypercapnia (Primary Dx); Obesity hypoventilation syndrome (CMS-HCC); Urinary tract infection without hematuria, site unspecified Discharge Disposition: Shelter Facility-Medicare Cert Social History Tobacco UseTypesPacks/DayYears UsedDateSmoking Tobacco: NeverSmokeless Tobacco: Never Tobacco Cessation:Counseling Given: Not Answered Alcohol UseStandard Drinks/WeekCommentsNever0 (1 standard drink = 0.6 oz pure alcohol)PHQ-2AnswerDate RecordedTotal Jytqr972UDIT-CAnswerDate Recorded Q1: How often do you have a drink containing alcohol?Never05/09/2025Q2: How many drinks containing alcohol do you have on a typical day when you are drinking? Patient does not drink05/09/2025Q3: How often do you [...] as a part of a household?No 05/09/2025hildcareAnswerDate VvqdjwcfFvbbyqvgrBdircki40/10/2019EmploymentAnswer Date YrhxucizAikuaakkiuTtpncwl43/10/2019Hunger ScreeningAnswerDate Recorded Within the past 12 months we worried whether our food would run out before we got money to buy more.Never True05/09/2025Within the past 12 months the food we bought just didn't last and we didn't have money to get more.Never True 05/09/2025CommentsNoSex and Gender InformationValueDate RecordedSex Assigned at BirthNot on fileLegal ZzqZjloay75/26/2025 3:17 PM EDTGender Identity Not on fileSexual OrientationNot on filedocumented as of this encounter Last Filed Vital Signs Vital SignReadingTime TakenCommentsBlood Sxmdbvbq210/9005/20/2025 9:00 AM EST Hizrm557505/20/2025 9:00 AM EBTPvyvqoznmod57.3 ??C (97.4 ??F)05/20/2025 8:00 AM ESTRespiratory Dwgu003907/20/2024 9:00 AM ESTOxygen Outjtnzjwb702%05/20/2025 9:00 AM ESTInhaled Oxygen Concentration--Qrmkww57.3 kg (148 lb 5.9 oz)05/20/2025 5:00 AM DPRRnyfuc543.9 cm (4' 11 )05/09/2025 5:00 PM EDTBody Mass Index29.97 05/09/2025 5:00 PM EDTdocumented in this encounter Functional Status * AUDIT-C ScoreAnswerDate of GeocirwdsbHxuxpv641/27/2025 4:55 PM Sugar Erickson RN * QuestionAnswerDate of AssessmentAuthorQ1: How often do you have a drink containing alcohol?Never05/09/2025 4:55 PM Sugar Erickson, LIANEQ2: How many drinks containing alcohol do you have on a typical day when you are drinking? Patient does not drink05/09/2025 4:55 PM Sugar Erickson, RNQ3: How often do you have six or more drinks on one occasion?Never05/09/2025 4:55 PM EDT Sugar Johnson RN * QuestionAnswerDate of AssessmentAuthorFunctional StatusModerate assistance 05/09/2025 4:56 PM Sugar Erickson RN documented as of this encounter Mental Status * QuestionAnswerEntry DateAuthorOverall Cognitive ZnntxfCGQ67/28/2025 1:35 PM Alejandra Ferguson, OT/L documented in this encounter Discharge Instructions * Appointments* Janel Braun RN - 05/17/2025 10:10 AM EST Follow-up with Dr. Natarajan for stent removal documented in this encounter Medications at Time of Discharge MedicationSigDispense QuantityRefillsLast FilledStart DateEnd Date acetaminophen (TYLENOL ARTHRITIS) 650 mg 8 hr tablet Take 1 tablet (650 mg total) by mouth every 8 (eight) hours as needed for pain. allopurinoL (ZYLOPRIM) 100 mg tablet Take 3 tablets (300 mg total) by mouth in the morning. ascorbic acid (VITAMIN C) 500 mg tablet Take 1 tablet (500 mg total) by mouth in the morning. aspirin 81 mg Take 1 tablet (81 mg total) by mouth before bedtime. bumetanide (BUMEX) 2 mg tablet Take 1 tablet (2 mg total) by mouth every other day.05/21/2025 carvediloL (COREG) 3.125 mg tablet Take 1 tablet (3.125 mg total) by mouth in the morning and 1 tablet (3.125 mg total) before bedtime.05/18/2025 cholecalciferol, vitamin D3, 5,000 units tablet Take 1 tablet (5,000 Units total) by mouth in the morning. clopidogreL (PLAVIX) 75 mg tablet Take 1 tablet (75 mg total) by mouth in the morning. DAPTOmycin 375 mg in sodium chloride 0.9 % 50 mL IVPB Infuse 375 mg into a venous catheter every other day for 8 days.05/19/2025 05/27/2025 docusate sodium (COLACE) 50 mg capsule Take 1 capsule (50 mg total) by mouth nightly. ertapenem 500 mg in sodium chloride 0.9 % 50 mL IVPB Infuse 500 mg into a venous catheter daily for 10 days. gabapentin (NEURONTIN) 300 mg capsule Indications:Chronic hypercapniaTake 1 capsule (300 mg total) by mouth nightly. 7 capsule 05/18/2025 insulin glargine (LANTUS, SEMGLEE) 100 unit/mL (3 mL) insulin pen Inject 20 Units under the skin nightly.05/18/2025 micafungin 100 mg in sodium chloride 0.9 % 100 mL IVPB W/ADAPTER Infuse 100 mg into a venous catheter daily for 10 days. polyethylene glycol (GLYCOLAX) 17 gram packet Take 17 g by mouth in the morning and 17 g before bedtime.05/20/2025 potassium chloride (K-TAB,KLOR-CON) 10 MEQ CR tablet Take 1 tablet (10 mEq total) by mouth in the morning. rosuvastatin (CRESTOR) 10 mg tablet Take 1 tablet (10 mg total) by mouth before bedtime. sennosides-docusate sodium (SENOKOT-S) 8.6-50 mg Take 2 tablets by mouth in the morning and 2 tablets before bedtime.05/18/2025 sodium chloride 0.9 % injection Infuse 10 mL into a venous catheter as needed for line care for up to 10 days. Flush line with 10 mL normal saline before line use, and after line use. May also flush line as needed.documented as of this encounter Progress Notes * Whitney Weaver MD - 05/20/2025 9:30 AM EST Images from the original note were not included. [facility] Progress Note Patient - Lexi Cm Age - 79 y.o. [facility] 1945 [id number] Date of Admission - 05/08/2025 8:24 PM Reason for Consultation: Acute hypoxemic hypercapnic respiratory failure ASSESSMENT Acute hypoxemic hypercapnic respiratory failure Chronic hypercapnia Decompensated heart failure with preserved ejection fraction Chronic kidney disease stage 4 Type 2 diabetes Coronary artery disease Bilateral pleural effusion PLAN Saturating 100% on 2 L of oxygen through nasal cannula PT/OT Will benefit from BiPAP at nighttime Finish antimicrobial therapy course Okay to transfer to rehab from pulmonary standpoint Advice to follow-up with pulmonary in outpatient setting Discussed plan of care with RN at the bedside. SUBJECTIVE Per nursing staff overnight significant event: No fever overnight Today labs and vitals were reviewed Saturating 100% on 2 L of oxygen through nasal cannula Overall feels better Plan to discharge today VITALS BP 116/90 Pulse 63 Temp 36.3 ??C (97.4 ??F) (Axillary) Resp 16 Ht 149.9 cm (4' 11 ) Wt 67.3 kg (148 lb 5.9 oz) LMP (LMP Unknown) SpO2 100% BMI 29.97 kg/m?? Last 3 Weight Readings 05/17/25 0500 05/17/25 1915 05/20/25 0500 Weight: 71.7 kg (158 lb 1.1 oz) 70.9 kg (156 lb 4.9 oz) 67.3 kg (148 lb 5.9 oz) Resp Readings from Last 3 Encounters: 05/20/25 16 PF Readings from Last 3 Encounters: No data found for PF @LASTSAO2(3)@ Exam Physical Exam Constitutional: Saturating 100% on 2 L Head: Normocephalic and atraumatic Heart: S1, S2, RRR, no gallops, rubs, or murmurs. Lungs: Equal lung movement, clear to auscultation Neuro: No focal neurological defect GI: Soft Extremities: Minimal peripheral edema noted Meds Medications Reviewed. Scheduled Meds: aspirin, 81 mg, oral, Daily bisacodyL, 10 mg, rectal, Once bisacodyL, 10 mg, rectal, Once [START ON 05/21/2025] bumetanide, 2 mg, oral, Every Other Day carvediloL, 3.125 mg, oral, BID clopidogreL, 75 mg, oral, Daily DAPTOmycin (CUBICIN) IV, 6 mg/kg (Adjusted), intravenous, Q48H darbepoetin reginald (ARANESP) injection, 60 mcg, subcutaneous, Weekly diclofenac sodium, 2 g, topical, 4x Daily ertapenem, 500 mg, intravenous, Q24H gabapentin, 300 mg, oral, Nightly heparin (porcine), 5,000 Units, subcutaneous, Q12H REBA insulin glargine, 20 Units, subcutaneous, Nightly insulin lispro, 2-10 Units, subcutaneous, TID with meals insulin lispro, 2-8 Units, subcutaneous, Nightly micafungin, 100 mg, intravenous, Q24H polyethylene glycol, 17 g, oral, BID sennosides-docusate sodium, 2 tablet, oral, BID [COMPLETED] Consult PICC nurse - Midline, , , Once AND sodium chloride, 10 mL, intravenous, Q12H AND sodium chloride, 10 mL, intravenous, PRN AND sodium chloride, 20 mL, intravenous, PRN sodium chloride, 3 mL, intravenous, Q12H [facility] Continuous Infusions: dextrose 5 % in water, 100 mL/hr PRN Meds: acetaminophen bisacodyL calcium gluconate calcium gluconate calcium gluconate dextrose dextrose 5 % in water dextrose 50 % in water (D50W) glucagon (human recombinant) guaiFENesin ipratropium-albuteroL magnesium sulfate magnesium sulfate midodrine ondansetron potassium chloride OR potassium chloride OR potassium chloride IV (Adult) sodium phosphate IV OR sodium phosphate IV - central line OR sod phos di, mono-K phos mono [COMPLETED] Consult PICC nurse - Midline AND sodium chloride AND sodium chloride AND sodium chloride sodium chloride sodium chloride Lab Results LABs: Results from last 7 days Lab Units 05/20/25 0544 05/19/25 0605/18/25 0537 WBC X10^9/L 8.6 8.7 8.6 HEMOGLOBIN g/dL 9.6* 9.7* 9.9* HEMATOCRIT % 29.8* 30.0* 30.6* PLATELETS X10^9/L 180 175 181 Results from last 7 days Lab Units 05/20/25 0544 05/19/25 0612 05/18/25 1336 05/18/25 0537 POTASSIUM mmol/L 3.8 3.9 4.3 3.7 CHLORIDE mmol/L 92* 91* -- 90* CO2 mmol/L 30 37* -- 38* BUN mg/dL 50* 51* -- 53* CREATININE mg/dL 1.59* 1.56* -- 1.63* CALCIUM mg/dL 9.4 9.2 -- 9.5 Intake/Output last 3 shifts: I/O last 3 completed shifts: In: - Out: 910 [Urine:910] Intake/Output this shift: I/O this shift: In: 240 [P.O.:240] Out: 400 [Urine:400] Radiology No new imaging Whitney Weaver MD, [facility] Sleep Consumer Educatorassociate programmer analyst Pulmonary / Critical Care This note was completed with the assistance of a speech- recognition system. Every effort was made to ensure accuracy. However, inadvertent computerized journeyman lineman errors may be present and no guarantees can be provided that every mistake has been identified and corrected by editing. 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 No suspicious calcification. No free air. Mild amount retained fecal content. * Bilateral ureterostomy tubes. The left tube is markedly kinked and coiled in the most proximal aspect. This is likely nonfunctional. Left-sided percutaneous nephrostomy tube present. Vascular stentin the right iliac. Defer findings to Primary Service. Chest x-ray 05/15/2025 Mild interval decreased vascular congestion and edema. Procedures 05/16/2025: Left nephrostomy tube placement. Stent retrieval was not attempted. Cultures: BCs 05/14 finalized with no growth Urine culture 05/09 Siobhan glabrata and VRE Positive urine culture with ESBL Klebsiella in April- see scanned report in Media Midline placement cleared by Nephrology 05/18 Antibiotics: Midline in place Continue micafungin, daptomycin, ertapenem through May 27, pending new cultures No statins while on daptomycin CK 11 Urology on consult. Follow up with primary urologist outpatient for stent retrieval. Follow-up WBC, platelets ,creatinine, LFTs, CK WBC, platelets ,creatinine, LFTs, CK twice weekly at discharge Antibiotics, flush orders, labs, line removal order post completion of antibiotics on med rec/in place Follow-up ID clinic in 1 week Supportive care FOLLOW UP/chief complaints UTI Interval History: Patient was seen sleeping in bed. No acute distress. Respirations regular and non-labored on 2L NC.She is drowsy but awakens and follows commands. She denies chest pain and shortness of breath. She denies abdominal pain, nausea, vomiting, diarrhea. No rash. She is afebrile. On antibiotic. Bedside nurse reports 200ml output from left nephrostomy tube in past 12 hours. ROS: Negative other than as listed above. Social History: Social History Socioeconomic History Marital status: Spouse name: Not on file Number of children: Not on file Years of education: Not on file Highest education level: Not on file Occupational History Not on file Tobacco Use Smoking status: Never Smokeless tobacco: Never Substance and Sexual Activity Alcohol use: Never Drug use: Never Sexual activity: Not on file Other Topics Concern Not on file Social History Narrative Not on file Social Drivers of Health Financial Resource Strain: Low Risk (05/09/2025) Overall Financial Resource Strain (CARDIA) Difficulty of Paying Living Expenses: Not hard at all Food Insecurity: No Food Insecurity (05/09/2025) Hunger Screening Food Insecurity - Worry: Never True Food Insecurity - Inability: Never True Transportation Needs: No Transportation Needs (05/09/2025) PRAPARE - Transportation Lack of Transportation (Medical): No Lack of Transportation (Non-Medical): No Physical Activity: Not on file Stress: Not on file Social Connections: Not on file Interpersonal Safety: Not At Risk (05/09/2025) Humiliation, Afraid, Rape, and Kick questionnaire Fear of Current or Ex-Partner: No Emotionally Abused: No Physically Abused: No Sexually Abused: No Housing Instability: Low Risk (05/09/2025) Housing Instability Housing Instability: No Family History: Family History Family history unknown: Yes Physical Examination : Vitals: 05/19/25 2315 05/20/25 0300 05/20/25 0314 05/20/25 0500 BP: 134/67 138/48 Pulse: 62 61 63 Resp: 13 16 14 Temp: 36.4 ??C (97.5 ??F) 36.3 ??C (97.4 ??F) TempSrc: Axillary Axillary SpO2: 100% 100% 100% Weight: 67.3 kg (148 lb 5.9 oz) Height: Temperature Range: Temp: 36.3 ??C (97.4 ??F) Temp Av.4 ??C (97.6 ??F) Min: 36.3 ??C (97.4 ??F)Max: 36.6 ??C (97.8 ??F) General Appearance: Drowsy, no acute distress. Pulmonary/Chest: Respirations regular and non-labored on 2L NC. Cardiovascular: Regular rate and rhythm. Abdomen: Soft, non-tender. Extremities: No edema, erythema. Skin: No unusual rash Laboratory data: I have independently reviewed the following labs: Results from last 7 days Lab Units 05/20/25 0544 05/19/25 0612 05/18/25 0537 WBC X10^9/L 8.6 8.7 8.6 HEMOGLOBIN g/dL 9.6* 9.7* 9.9* HEMATOCRIT % 29.8* 30.0* 30.6* PLATELETS X10^9/L 180 175 181 Results from last 7 days Lab Units 05/19/25 0612 05/18/25 1336 05/18/25 0537 05/17/25 1342 05/17/25 0539 POTASSIUM mmol/L 3.9 4.3 3.7 < > 3.3* CHLORIDE mmol/L 91* -- 90* -- 91* CO2 mmol/L 37* -- 38* -- 37* BUN mg/dL 51* -- 53* -- 56* CREATININE mg/dL 1.56* -- 1.63* -- 1.49* EGFR (CKD-EPI) NON-RACE DEPENDENT ml/min/1.73sq.m 34* -- 32* -- 36* CALCIUM mg/dL 9.2 -- 9.5 -- 9.5 MAGNESIUM mg/dL 2.4 -- 2.3 -- 2.3 < > = values in this interval not displayed. Results from last 7 days Lab Units 05/15/25 0451 05/14/25 0519 ALK PHOS U/L 54 55 ALT U/L 3 <3 AST U/L 10 14 No results found for: CRP No results found for: SEDRATE Cultures: Microbiology Results Procedure Component Value Units Date/Time Blood culture #1 [[id number]] Collected: 05/14/25951 Specimen: Blood, Venous Updated: 05/19/25 100 CULTURE RESULTS NO GROWTH 5 DAYS Narrative: Suboptimal volume of blood collected, Results may be affected. Blood culture #2 [[id number]] Collected: 05/14/25951 Specimen: Blood, Venous Updated: 05/19/25 1001 CULTURE RESULTS NO GROWTH 5 DAYS Narrative: Suboptimal volume of blood collected, Results may be affected. Imaging Studies: X-ray abdomen ap 1 view Result Date: 05/19/2025 CLINICAL HISTORY: Constipation Comparison: None Views: 1 view FINDINGS: * The bowel gas pattern is nonobstructive. No suspicious calcification. No free air. Mild amount retained fecal content. * Bilateral ureterostomy tubes. The left tube is markedly kinked and coiled in the most proximal aspect. This is likely nonfunctional 2. Left-sided percutaneous nephrostomy tube present. Vascular stent in the right iliac. IMPRESSION: * As above Finalized by Ross Garza MD on :38 PM X-ray chest 1 view Result Date: 05/18/2025 XR CHEST 1 VW CLINICAL INDICATION: Airspace disease. COMPARISON: Radiographs 05/15/2025. IMPRESSION:1. Hypoventilatory changes with slight interstitial edema, additional more vague airspace disease left lung base. Small pleural effusions more on the left. 2. Unchanged cardiomediastinal silhouette. W orkstation:[id number] Finalized by Bharat Tyler MD on 05/18/2025 4:30 PM Medications: aspirin, 81 mg, oral, Daily bisacodyL, 10 mg, rectal, Once bisacodyL, 10 mg, rectal, Once [START ON 05/21/2025] bumetanide, 2 mg, oral, Every Other Day carvediloL, 3.125 mg, oral, BID clopidogreL, 75 mg, oral, Daily DAPTOmycin (CUBICIN) IV, 6 mg/kg (Adjusted), intravenous, Q48H darbepoetin reginald (ARANESP) injection, 60 mcg, subcutaneous, Weekly diclofenac sodium, 2 g, topical, 4x Daily ertapenem, 500 mg, intravenous, Q24H gabapentin, 300 mg, oral, Nightly heparin (porcine), 5,000 Units, subcutaneous, Q12H REBA insulin glargine, 20 Units, subcutaneous, Nightly insulin lispro, 2-10 Units, subcutaneous, TID with meals insulin lispro, 2-8 Units, subcutaneous, Nightly micafungin, 100 mg, intravenous, Q24H polyethylene glycol, 17 g, oral, BID sennosides-docusate sodium, 2 tablet, oral, BID [COMPLETED] Consult PICC nurse - Midline, , , Once AND sodium chloride, 10 mL, intravenous, Q12H AND sodium chloride, 10 mL, intravenous, PRN AND sodium chloride, 20 mL, intravenous, PRN sodium chloride, 3 mL, intravenous, Q12H REBA Thank you for allowing us to participate in the care of this patient. Please call with questions. This note was completed using a voice journeyman lineman system. Every effort was made to ensure accuracy. However, inadvertent computerized journeyman lineman errors may be present. KEYANNA Francois [facility] SHAWANDA Araujo 05/20/25 0840 Manuel Mitchell MD, personally performed dlvw-ob-gkib diagnostic evaluation on this patient I reviewed and performed all the nolan component of the patient visit I reviewed [place] history, exam and MDM - Manuel Gan MD 05/20/25 11:10 AM * Swapna Mcnair MD - 05/19/2025 11:00 AM EST Images from the original note were not included. 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 with bilateral ureteral stents, exchanged in March 2025, left nephrostomy tube placed on 05/16/2025 Acute on chronic hypoxemic respiratory failure, on nasal cannula 2 liters/minute, chest x-ray revealed hypo ventilation with small left pleural effusion Acute on chronic diastolic congestive heart failure, lower extremity edema improved significant Metabolic alkalosis and respiratory acidosis pH was 7.38, pCO2 was 64 Anemia, on Aranesp Siobhan and VRE UTI, on daptomycin, micafungin, ertapenem Plan Give 1 dose of Diamox today Restart Bumex 2 mg every other day on 05/21/2025 Interval history, uneventful night, patient denies chest pain, no SOB, , no abdominal pain, no nausea, no vomiting, Vital signs in last 24 hours: Vitals: 05/19/25 0200 05/19/25 0400 05/19/25 0600 05/19/25 0700 BP: 133/57 112/52 145/55 Pulse: 68 64 63 66 Resp: 20 17 14 16 Temp: 36.3 ??C (97.4 ??F) 36.4 ??C (97.5 ??F) TempSrc: Axillary Oral SpO2: 99% 95% 99% 100% Weight: Height: Intake/Output: Intake/Output Summary (Last 24 hours) at 05/19/2025 1100 Last data filed at 05/19/2025 0839 Gross per 24 hour Intake 240 ml Output 1900 ml Net -1660 ml Physical Exam: General appearance: alert in no acute distress. Head: Normocephalic, without obvious abnormality, atraumatic Eyes: Conjunctivae unremarkable, pupils reactive Neck: No JVD, no carotid bruit, neck supple, trachea midline cardiovascular: normal S1-S2, No gallops. Respiratory: Decreased breathing sounds at the bases Gastrointestinal: no tenderness, no guarding, no hepatosplenomegaly could be appreciated. Muscloskeletal: LE edema improving, no active arthritis, normal range of movement Neurology: Moves all extremities, alert oriented Skin: no rash, no petechia Psychiatric, no anxiety, no suicidal ideas Lymphatic: no lymphadenopathy, no lymphedema Inpatient Meds: aspirin, 81 mg, oral, Daily bisacodyL, 10 mg, rectal, Once bisacodyL, 10 mg, rectal, Once carvediloL, 3.125 mg, oral, BID clopidogreL, 75 mg, oral, Daily DAPTOmycin (CUBICIN) IV, 6 mg/kg (Adjusted), intravenous, Q48H darbepoetin reginald (ARANESP) injection, 60 mcg, subcutaneous, Weekly diclofenac sodium, 2 g, topical, 4x Daily ertapenem, 500 mg, intravenous, Q24H gabapentin, 300 mg, oral, Nightly heparin (porcine), 5,000 Units, subcutaneous, Q12H REBA insulin glargine, 20 Units, subcutaneous, Nightly insulin lispro, 2-10 Units, subcutaneous, TID with meals insulin lispro, 2-8 Units, subcutaneous, Nightly micafungin, 100 mg, intravenous, Q24H polyethylene glycol, 17 g, oral, BID sennosides-docusate sodium, 2 tablet, oral, BID [COMPLETED] Consult PICC nurse - Midline, , , Once AND sodium chloride, 10 mL, intravenous, Q12H AND sodium chloride, 10 mL, intravenous, PRN AND sodium chloride, 20 mL, intravenous, PRN sodium chloride, 3 mL, intravenous, Q12H REBA dextrose 5 % in water, 100 mL/hr sodium chloride 0.9 %, 20 mL/hr, Last Rate: 20 mL/hr (05/18/25 1530) sodium chloride 0.9 %, 20 mL/hr, Last Rate: 20 mL/hr (05/18/25 1525) Nutrition: Dietary Orders (From admission, onward) Start Ordered 05/16/25 1647 Adult diet Regular Texture; No Added Salt (3-4 gm Sodium); Fluid Restriction 1500 mL Diet effective now Question Answer Comment Diet Type: Regular Texture Sodium Modifiers: No Added Salt (3-4 gm Sodium) Fluid Restrictions: Fluid Restriction 1500 mL 05/16/25 1646 Labs: Results from last 7 days Lab Units 05/19/25 0612 05/18/25 1336 05/18/25 0537 05/17/25 1342 05/17/25 0539 05/16/25 0637 05/15/25 1147 05/15/25 0451 SODIUM mmol/L 137 -- 137 -- 139 139 -- 138 POTASSIUM mmol/L 3.9 4.3 3.7 4.3 3.3* 3.5 < > 3.6 CHLORIDE mmol/L 91* -- 90* -- 91* 91* -- 90* CO2 mmol/L 37* -- 38* -- 37* 39* -- 40* BUN mg/dL 51* -- 53* -- 56* 60* -- 67* CREATININE mg/dL 1.56* -- 1.63* -- 1.49* 1.60* -- 1.70* CALCIUM mg/dL 9.2 -- 9.5 -- 9.5 9.6 -- 9.5 MAGNESIUM mg/dL 2.4 -- 2.3 -- 2.3 2.2 -- 2.2 PHOSPHORUS mg/dL 4.3 -- 3.6 -- 3.4 3.1 -- 3.7 < > = values in this interval not displayed. 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 Renal serologies from 05/09/2025 showing negative MPO PR3 antibody negative VIVEK normal complements normal free light chain ratio, urinalysis showing 6 hyaline casts large leukocyte esterase 70 protein. Urine protein creatinine ratio of 2.1 g.SPEP Unremarkable. 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 Bilateral ureteral stents for bilateral hydronephrosis for which she gets stents exchange every 3 months Hypertension Diabetes mellitus type 2 Hyperlipidemia Neuropathy Gout Coronary artery disease status post CABG x3 in 2017 Abdominal aortic aneurysm repair Echocardiogram performed 05/10/2025 showing left ventricle size normal with increase hypertrophy noted. Systolic function decreased with EF of 40-45%. Right ventricle size normal systolic function low normal. Fzdg-hl-zynvmvod mitral regurgitation hrke-al-egukavno tricuspid regurgitation elevated RVSP of 46 mmHg. SWAPNA MCNAIR MD [facility] ANY QUESTIONS FEEL FREE TO CALL: 1. OFFICE [phone] 2. ANSWERING SERVICE:[phone] YOU CAN CONTACT ME THROUGH [employer] SECURE CHAT DURING THE DAYTIME HOURS, IF NO RESPONSE AFTER 5 MINUTES CALL THE ANSWERING SERVICE This note was created with the assistance of a speech-recognition program. Although the intention is to generate a document that actually reflects the content of the visit, no guarantees can be provided that every mistake has been identified and corrected by editing. * Janel Al MD - 05/19/2025 10:42 AM EST [facility] Progress Note 05/19/2025 Hospital Day: 12 Patient Name: Lxei Cm : 1945 ASSESSMENT / PLAN Acute hypoxic hypercapnic respiratory failure requiring NIPPV- now on 3L O2 NC: LLL community acquired pneumonia/ Aspiration pneumonia: Concern for obesity hypoventilation syndrome Acute on chronic HFpEF (TTE EF 55% (05/02/25) B/l Pleural effusions -BNP at OSH was 11,105. -On 3L NC and BiPAP at night -completed IV Levofloxacin 05/09/25 -Pulm following and recommend BiPAP at night on discharge. Patient will need PFTs outpatient. -Strict I/O and daily weight. Monitor kidney function and electrolytes. Nephro following. Bumex onhold. 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 Tovar catheter removed 05/17/2025 -status post left percutaneous nephrostomy tube placement on 05/16/25 with Interventional Radiology -ID following. Continue ertapenem, daptomycin, and micafungin. Planned for two week (until ). No statin while on daptomycin. Anisocoria -Stroke alert called 05/13/25 due to dilated left pupil, left facial droop -CT head 05/13/25 nonacute -MRA head pending - if unable to get inpatient, per neurology, okay to follow-up on it outpatient CAD s/p CABG Primary HTN PAD -Continue Coreg 3.125 mg p.o. b.i.d. -home Plavix and aspirin were held after 05/09/25 prior to IR procedure -home Plavix aspirin resumed Acute kidney injury on chronic kidney disease stage 4 Hyponatremia, resolved Hyperkalemia, resolved -continue to monitor -nephrology following Type 2 diabetes mellitus -hemoglobin A1c 6.3 -continue Lantus 20 units nightly and lispro moderate correction scale a.c./HS Constipation -MiraLax b.I.d.. Sennakot-s bid. Dulcolax suppository p.r.n.. -last BM was 05/08. Patient has been declining suppository or enema. Abdominal XR ordered. Subsequently had a large bowel movement this afternoon. DVT prophylaxis: Subcutaneous heparin Discharge planning: long-term facility Follow up with pulmonology for pulmonary function tests and sleep study as outpatient Follow up with the patient's primary urologist for outpatient stent retrieval Follow up with Neurology for MRA head Subjective SUBJECTIVE Bumex was held yesterday. ABG overnight reviewed. Evaluated at bedside. Afebrile, denies, CP, SOB, abdominal pain, N/V. Objective OBJECTIVE Physical Exam: General appearance: alert, in no apparent distress HEENT: atraumatic, EOM intact, no erythema Lungs: clear to auscultation bilaterally, no use of accessory muscles Heart: RRR, normal S1 and S2, no murmurs Abdomen: soft, non-distended, non-tender, normoactive bowel sounds Extremities: no edema, no rash Neurologic: no focal motor deficits Psychiatric: appropriate mood and affect Vital Signs: Temp: [36.3 ??C (97.4 ??F)-36.9 ??C (98.5 ??F)] 36.4 ??C (97.5 ??F) Pulse: [63-74] 66 Resp: [14-20] 16 BP: (111-145)/(43-65) 145/55 SpO2: [92 %-100 %] 100 % O2 Device: Nasal cannula O2 Flow Rate (L/min): [2 L/min-3 L/min] 3 L/min Weight: Body mass index is 31.57 kg/m??. Admission weight: 77.6 kg (171 lb 1.2 oz) Wt Readings from Last 3 Encounters: 05/17/25 70.9 kg (156 lb 4.9 oz) Input/Output: Intake/Output Summary (Last 24 hours) at 05/19/2025 1042 Last data filed at 05/19/2025 0839 Gross per 24 hour Intake 240 ml Output 1900 ml Net -1660 ml Labs/Imaging: Recent Results (from the past 24 hours) Bedside Glucose *Place/Obtain serum glucose if >500 per glucometer. Collection Time: 05/18/25 12:48 PM Result Value Ref Range Bedside Glucose (POC) 255 (H) 65 - 99 mg/dL Potassium Collection Time: 05/18/25 1:36 PM Result Value Ref Range POTASSIUM 4.3 3.5 - 5.0 mmol/L Bedside Glucose *Place/Obtain serum glucose if >500 per glucometer. Collection Time: 05/18/25 4:26 PM Result Value Ref Range Bedside Glucose (POC) 254 (H) 65 - 99 mg/dL Bedside Glucose *Place/Obtain serum glucose if >500 per glucometer. Collection Time: 05/18/25 9:44 PM Result Value Ref Range Bedside Glucose (POC) 239 (H) 65 - 99 mg/dL Blood Gas, Arterial Collection Time: 05/19/25 12:12 AM Result Value Ref Range Sample type ARTERIAL pH, Arterial 7.386 7.350 - 7.450 pCO2, Arterial 64.9 (H) 35.0 - 45.0 mmHg PO2, Arterial 56 (L) 80 - 100 mmHg Base, Excess 12.0 (H) 0.0 - 2.0 mmol/L HCO3, Arterial 38.9 (H) 22.0 - 26.0 mmol/L %O2 Saturation, Arterial 87.0 (L) >90.0 % Marcos's test N/A SPO2 90 % Sample site L Brach Insp. O2 conc. 28 % Source Of Oxygen Room Air CBC auto differential Collection Time: 05/19/25 6:12 AM Result Value Ref Range WBC 8.7 4 - 11 X10^9/L RBC Count 3.09 (L) 3.8 - 5.2 X10^12/L Hemoglobin 9.7 (L) 11.7 - 15.5 g/dL Hematocrit 30.0 (L) 35 - 47 % MCV 97 80 - 100 fL MCH 31.5 27 - 34 pg MCHC 32.5 32 - 36 g/dL RDW 18.6 (H) 11.5 - 15 % Platelet Count 175 150 - 450 X10^9/L MPV 9.3 7 - 12 fL Neutrophils % 62.1 % Lymphocytes % 25.4 % Monocytes % 8.7 % Eosinophils % 3.3 % Basophils % 0.5 % Neutrophils Absolute (A) 5.4 1.5 - 6.6 X10^9/L Lymphocytes Absolute 2.2 1.0 - 3.5 X10^9/L Monocytes Absolute 0.8 0.0 - 0.9 X10^9/L Eosinophils Absolute 0.3 0.0 - 0.4 X10^9/L Basophils Absolute 0.0 0.0 - 0.2 X10^9/L Differential Type AUTOMATED DIFFERENTIAL Basic Metabolic Panel Collection Time: 05/19/25 6:12 AM Result Value Ref Range SODIUM 137 134 - 146 mmol/L POTASSIUM 3.9 3.5 - 5.0 mmol/L CHLORIDE 91 (L) 98 - 109 mmol/L CARBON DIOXIDE 37 (H) 22 - 32 mmol/L ANION GAP 9 5 - 15 mmol/L BLOOD UREA NITROGEN 51 (H) 5 - 27 mg/dL CREATININE 1.56 (H) 0.40 - 1.00 mg/dL GLUCOSE 121 (H) 65 - 99 mg/dL CALCIUM 9.2 8.5 - 10.5 mg/dL EGFR Non-Race Dependent 34 (L) >=60 ml/min/1.73sq.m Magnesium Collection Time: 05/19/25 6:12 AM Result Value Ref Range MAGNESIUM 2.4 1.8 - 2.6 mg/dL Phosphorus Collection Time: 05/19/25 6:12 AM Result Value Ref Range PHOSPHORUS 4.3 2.4 - 4.9 mg/dL Bedside Glucose *Place/Obtain serum glucose if >500 per glucometer. Collection Time: 05/19/25 8:47 AM Result Value Ref Range Bedside Glucose (POC) 125 (H) 65 - 99 mg/dL All available laboratory, imaging, and microbiology data has been personally reviewed in detail, and accessible in full per EMR. Medications: aspirin, 81 mg, oral, Daily bisacodyL, 10 mg, rectal, Once bisacodyL, 10 mg, rectal, Once carvediloL, 3.125 mg, oral, BID clopidogreL, 75 mg, oral, Daily DAPTOmycin (CUBICIN) IV, 6 mg/kg (Adjusted), intravenous, Q48H darbepoetin reginald (ARANESP) injection, 60 mcg, subcutaneous, Weekly diclofenac sodium, 2 g, topical, 4x Daily ertapenem, 500 mg, intravenous, Q24H gabapentin, 300 mg, oral, Nightly heparin (porcine), 5,000 Units, subcutaneous, Q12H REBA insulin glargine, 20 Units, subcutaneous, Nightly insulin lispro, 2-10 Units, subcutaneous, TID with meals insulin lispro, 2-8 Units, subcutaneous, Nightly micafungin, 100 mg, intravenous, Q24H polyethylene glycol, 17 g, oral, BID sennosides-docusate sodium, 2 tablet, oral, BID [COMPLETED] Consult PICC nurse - Midline, , , Once AND sodium chloride, 10 mL, intravenous, Q12H AND sodium chloride, 10 mL, intravenous, PRN AND sodium chloride, 20 mL, intravenous, PRN sodium chloride, 3 mL, intravenous, Q12H REBA acetaminophen bisacodyL calcium gluconate calcium gluconate calcium gluconate dextrose dextrose 5 % in water dextrose 50 % in water (D50W) glucagon (human recombinant) guaiFENesin ipratropium-albuteroL magnesium sulfate magnesium sulfate midodrine ondansetron potassium chloride OR potassium chloride OR potassium chloride IV (Adult) sodium phosphate IV OR sodium phosphate IV - central line OR sod phos di, mono-K phos mono [COMPLETED] Consult PICC nurse - Midline AND sodium chloride AND sodium chloride AND sodium chloride sodium chloride sodium chloride sodium chloride 0.9 % sodium chloride 0.9 % Janel Al MD * Mery Couch MD - 05/19/2025 9:11 AM EST Images from the original note were not included. [facility] Progress Note Patient - Lexi Cm Age - 79 y.o. - 1945 Date of Admission - 05/08/2025 8:24 PM Reason for Consultation: Respiratory failure ASSESSMENT Acute respiratory failure hypoxia and hypercapnia secondary to acute diastolic heart failure. Obesity hypoventilation syndrome Restrictive lung disease secondary to chest wall weakness and body habitus Acute Diastolic congestive heart failure. Other lung etiologies need to be ruled out after adequate diuresis. CKD stage 4 Coronary artery disease status post CABG. Diabetes mellitus type 2. Bilateral pleural effusion Essential hypertension UTIs status post bilateral kidney stents PLAN Oxygen therapy to keep sat O2 above 90%. NIV as needed The hypercapnia is secondary to obesity hypoventilation syndrome and unlikely to be related to ALEJANDRA.Patient may or may not have ALEJANDRA however it should not contribute to this degree of hypercapnia. She will benefit from BiPAP at night The patient requires positive ventilation at night due to the severity of the disease, weak breathing muscles and potential life-threatening condition including CO2 retention, the patient also requires ventilation to be used during the day as needed in addition to every night use age with face mask. Discussed ordering NIV at home. Patient is agreeable. Nocturnal pulse oximetry trend off BiPAP that was done on 05/11 and requirement of oxygen increasedup to 6 L per minute with saturation reached 70s then he was placed on BiPAP. She did not tolerate sleeping off BiPAP. Diuresis per Nephrology. Lower extremity ultrasound is negative for DVT. Finished Levaquin course Patient will need pulmonary function test as outpatient. She will need to be discharged to facility with BiPAP 27/12 with O2 2 LPM bled in. Her [place] got approved [place] [facility] [place]F should [place] [facility] [place] to deliver the machine home. SUBJECTIVE Patient was seen and examined. She is currently on 3 L/min nasal cannula. No fever or chills VITALS BP 145/55 Pulse 66 Temp 36.4 ??C (97.5 ??F) (Oral) Resp 16 Ht 149.9 cm (4' 11 ) Wt 70.9 kg (156 lb 4.9 oz) LMP (LMP Unknown) SpO2 100% BMI 31.57 kg/m?? Last 3 Weight Readings 05/16/25 0600 05/17/25 0500 05/17/25 1915 Weight: 74.2 kg (163 lb 9.3 oz) 71.7 kg (158 lb 1.1 oz) 70.9 kg (156 lb 4.9 oz) Resp Readings from Last 3 Encounters: 05/19/25 16 PF Readings from Last 3 Encounters: No data found for PF @LASTSAO2(3)@ Exam Physical Exam Constitutional She is oriented to person, place, and time. She appears well- developed and well-nourished. No distress. Eyes: EOM are normal. Pupils are equal, round, and reactive to light. Pulmonary/Chest: Effort normal. She has rales. Abdominal: Bowel sounds are normal. Soft. Musculoskeletal: General: Edema present. Neurological She is alert and oriented to person, place, and time. Skin: Skin is warm and dry. Meds Medications Reviewed. Scheduled Meds: aspirin, 81 mg, oral, Daily bisacodyL, 10 mg, rectal, Once bisacodyL, 10 mg, rectal, Once carvediloL, 3.125 mg, oral, BID clopidogreL, 75 mg, oral, Daily DAPTOmycin (CUBICIN) IV, 6 mg/kg (Adjusted), intravenous, Q48H darbepoetin reginald (ARANESP) injection, 60 mcg, subcutaneous, Weekly diclofenac sodium, 2 g, topical, 4x Daily ertapenem, 500 mg, intravenous, Q24H gabapentin, 300 mg, oral, Nightly heparin (porcine), 5,000 Units, subcutaneous, Q12H REBA insulin glargine, 20 Units, subcutaneous, Nightly insulin lispro, 2-10 Units, subcutaneous, TID with meals insulin lispro, 2-8 Units, subcutaneous, Nightly micafungin, 100 mg, intravenous, Q24H polyethylene glycol, 17 g, oral, BID sennosides-docusate sodium, 2 tablet, oral, BID [COMPLETED] Consult PICC nurse - Midline, , , Once AND sodium chloride, 10 mL, intravenous, Q12H AND sodium chloride, 10 mL, intravenous, PRN AND sodium chloride, 20 mL, intravenous, PRN sodium chloride, 3 mL, intravenous, Q12H [facility] Continuous Infusions: dextrose 5 % in water, 100 mL/hr sodium chloride 0.9 %, 20 mL/hr, Last Rate: 20 mL/hr (05/18/25 1530) sodium chloride 0.9 %, 20 mL/hr, Last Rate: 20 mL/hr (05/18/25 1525) PRN Meds: acetaminophen bisacodyL calcium gluconate calcium gluconate calcium gluconate dextrose dextrose 5 % in water dextrose 50 % in water (D50W) glucagon (human recombinant) guaiFENesin ipratropium-albuteroL magnesium sulfate magnesium sulfate midodrine ondansetron potassium chloride OR potassium chloride OR potassium chloride IV (Adult) sodium phosphate IV OR sodium phosphate IV - central line OR sod phos di, mono-K phos mono [COMPLETED] Consult PICC nurse - Midline AND sodium chloride AND sodium chloride AND sodium chloride sodium chloride sodium chloride sodium chloride 0.9 % sodium chloride 0.9 % Lab Results LABs: Results from last 7 days Lab Units 05/19/25 0612 05/18/25 0537 05/17/25 0539 WBC X10^9/L 8.7 8.6 11.0 HEMOGLOBIN g/dL 9.7* 9.9* 9.7* HEMATOCRIT % 30.0* 30.6* 30.2* PLATELETS X10^9/L 175 181 192 Results from last 7 days Lab Units 05/19/25 0612 05/18/25 1336 05/18/25 0537 05/17/25 1342 05/17/25 0539 POTASSIUM mmol/L 3.9 4.3 3.7 < > 3.3* CHLORIDE mmol/L 91* -- 90* -- 91* CO2 mmol/L 37* -- 38* -- 37* BUN mg/dL 51* -- 53* -- 56* CREATININE mg/dL 1.56* -- 1.63* -- 1.49* CALCIUM mg/dL 9.2 -- 9.5 -- 9.5 < > = values in this interval not displayed. Intake/Output last 3 shifts: I/O last 3 completed shifts: In: 600 [P.O.:600] Out: 2680 [Urine:2680] Intake/Output this shift: I/O this shift: In: - Out: 250 [Urine:250] Radiology CT of the abdomen shows bilateral pleural effusion with adjacent atelectasis bilaterally. She had CT chest on 05/02/2025 that showed cardiomegaly and bilateral increased interstitial marking with bilateral pleural effusion. Mery Couch MD [facility] This note was completed with the assistance of a speech- recognition system. Every effort was made to ensure accuracy. However, inadvertent computerized journeyman lineman errors may be present and no guarantees can be provided that every mistake has been identified and corrected by editing. * Manuel Gan MD - 05/19/2025 7:20 AM EST [facility] Infectious Diseases - Daily Progress Note Lexi Cm Admission date/time 05/08/2025 8:24 PM Today's Date and Time: 05/19/2025, 8:31 AM Impression : UTI Acute on chronic HFpEF Positive urine culture with ESBL Klebsiella in April Bilateral pleural effusions Persistent bilateral hydronephrosis due to retroperitoneal fibrosis status post bilateral ureteral stent exchange 04/12/2025 at outside hospital Status post left nephrostomy tube placement CKD stage 4 Coronary artery disease status post CABG Primary hypertension PAD DM 2 Recent left hip fracture status post surgical fixation 03/21/2025 Recommendations: Chest x-ray 05/15/2025 Mild interval decreased vascular congestion and edema. Procedures 05/16/2025: Left nephrostomy tube placement. Stent retrieval was not attempted. Cultures: BCs 05/14 no growth at present Urine culture 05/09 Siobhan glabrata and VRE Positive urine culture with ESBL Klebsiella in April- see scanned report in Media Midline placement cleared by Nephrology 05/18 Antibiotics: Midline placed 05/18 Micafungin, daptomycin, ertapenem through May 27 No statins while on daptomycin CK 05/17 13 Urology on consult. Follow up with primary urologist outpatient for stent retrieval. Follow-up WBC, platelets ,creatinine, LFTs, CK WBC, platelets ,creatinine, LFTs, CK twice weekly at discharge Antibiotics, flush orders, labs, line removal order post completion of antibiotics on med rec/in place Follow-up ID clinic in 1 week Supportive care FOLLOW UP/chief complaints UTI Interval History: Patient was seen sleeping in bed. No acute distress. Respirations regular and non-labored on 3L NC.She is very drowsy but awakens and follows commands. No rash. She is afebrile. On antibiotic. Bedside nurse notified BiPAP not in place and patient very drowsy. ROS: Unable to assess due to patient drowsiness. Social History: Social History Socioeconomic History Marital status: Spouse name: Not on file Number of children: Not on file Years of education: Not on file Highest education level: Not on file Occupational History Not on file Tobacco Use Smoking status: Never Smokeless tobacco: Never Substance and Sexual Activity Alcohol use: Never Drug use: Never Sexual activity: Not on file Other Topics Concern Not on file Social History Narrative Not on file Social Drivers of Health Financial Resource Strain: Low Risk (05/09/2025) Overall Financial Resource Strain (CARDIA) Difficulty of Paying Living Expenses: Not hard at all Food Insecurity: No Food Insecurity (05/09/2025) Hunger Screening Food Insecurity - Worry: Never True Food Insecurity - Inability: Never True Transportation Needs: No Transportation Needs (05/09/2025) PRAPARE - Transportation Lack of Transportation (Medical): No Lack of Transportation (Non-Medical): No Physical Activity: Not on file Stress: Not on file Social Connections: Not on file Interpersonal Safety: Not At Risk (05/09/2025) Humiliation, Afraid, Rape, and Kick questionnaire Fear of Current or Ex-Partner: No Emotionally Abused: No Physically Abused: No Sexually Abused: No Housing Instability: Low Risk (05/09/2025) Housing Instability Housing Instability: No Family History: Family History Family history unknown: Yes Physical Examination : Vitals: 05/19/25 0014 05/19/25 0200 05/19/25 0400 05/19/25 0600 BP: 133/45 133/57 112/52 Pulse: 70 68 64 63 Resp: 14 20 17 14 Temp: 36.3 ??C (97.4 ??F) 36.3 ??C (97.4 ??F) TempSrc: Oral Axillary SpO2: 92% 99% 95% 99% Weight: Height: Temperature Range: Temp: 36.3 ??C (97.4 ??F) Temp Av.6 ??C (97.8 ??F) Min: 36.3 ??C (97.4 ??F)Max: 36.9 ??C (98.5 ??F) General Appearance: Very drowsy, no acute distress. Pulmonary/Chest: Respirations regular and non-labored on 3L NC. Cardiovascular: Regular rate and rhythm. Abdomen: Soft, non-tender. Extremities: No edema, erythema. Skin: No unusual rash Laboratory data: I have independently reviewed the following labs: Results from last 7 days Lab Units 05/19/25 0612 05/18/25 0537 05/17/25 0539 WBC X10^9/L 8.7 8.6 11.0 HEMOGLOBIN g/dL 9.7* 9.9* 9.7* HEMATOCRIT % 30.0* 30.6* 30.2* PLATELETS X10^9/L 175 181 192 Results from last 7 days Lab Units 05/19/25 0612 05/18/25 1336 05/18/25 0537 05/17/25 1342 05/17/25 0539 POTASSIUM mmol/L 3.9 4.3 3.7 < > 3.3* CHLORIDE mmol/L 91* -- 90* -- 91* CO2 mmol/L 37* -- 38* -- 37* BUN mg/dL 51* -- 53* -- 56* CREATININE mg/dL 1.56* -- 1.63* -- 1.49* EGFR (CKD-EPI) NON-RACE DEPENDENT ml/min/1.73sq.m 34* -- 32* -- 36* CALCIUM mg/dL 9.2 -- 9.5 -- 9.5 MAGNESIUM mg/dL 2.4 -- 2.3 -- 2.3 < > = values in this interval not displayed. Results from last 7 days Lab Units 05/15/25 0451 05/14/25 0519 05/13/25 0532 ALK PHOS U/L 54 55 53 ALT U/L 3 <3 <3 AST U/L 10 14 12 No results found for: CRP No results found for: SEDRATE Cultures: Microbiology Results Procedure Component Value Units Date/Time Blood culture #1 [[id number]] Collected: 05/14/25 0952 Specimen: Blood, Venous Updated: 05/18/25 1002 CULTURE RESULTS NO GROWTH 4 DAYS Narrative: Suboptimal volume of blood collected, Results may be affected. Blood culture #2 [[id number]] Collected: 05/14/25 0952 Specimen: Blood, Venous Updated: 05/18/25 1002 CULTURE RESULTS NO GROWTH 4 DAYS Narrative: Suboptimal volume of blood collected, Results may be affected. Imaging Studies: X-ray chest 1 view Result Date: 05/18/2025 XR CHEST 1 VW CLINICAL INDICATION: Airspace disease. COMPARISON: Radiographs 05/15/2025. IMPRESSION:1. Hypoventilatory changes with slight interstitial edema, additional more vague airspace disease left lung base. Small pleural effusions more on the left. 2. Unchanged cardiomediastinal silhouette. W orkstation:[id number] Finalized by Bharat Tyler MD on 05/18/2025 4:30 PM IR percutaneous placement nephrostomy tube left Result Date: 05/16/2025 1. Ultrasound guided puncture of left renal collecting system. 2. Left Antegrade nephrostogram. 3. Fluoroscopic guided placement of left 8 Scottish percutaneous nephrostomy catheter. CLINICAL INDICATION: Left hydronephrosis due to ureteral obstruction. CONSENT: The risks, benefits, and expectations of the procedure were eplained to the patient who signed a written consent. SEDATION: 50 mcg fentanylfor pain control. 10 mL 1% lidocaine. PROCEDURE: All elements of maximal sterile barrier techniquesfollowed including: cap and mask and sterile gown and sterile gloves and a large sterile sheet and hand hygiene and 2% chlorhexidine for cutaneous antiseptics; in addition, sterile ultrasound techniques including sterile gel and sterile probe per hospital policy followed. The patient was placed on the fluoroscopy table in the prone position, and both flanks were prepped and draped in a sterile fashion. Evaluation of the left kidney with ultrasound confirmed the presence of left hydronephrosis. Ultrasound revealed a good window for percutaneous access . Therefore, the skin was infiltrated with1% lidocaine, and a small skin abiel with an 11 blade was made. Using real-time ultrasound guidance A 21-gauge Chiba needle was advanced percutaneously into a posterior calyx of the left kidney duringdirect ultrasound needle visualization, and an ultrasound truck sales representative image was obtained and saved in PACS. An 018 wire was successfully introduced through the needle into the renal pelvis, then over the wire, the tract was dilated using an AccuStick set and the dilator was placed in the left renal pelvis. Contrast was injected and an antegrade nephrostogram was obtained. This confirmed left hydronephrosis due to ureteral obstruction. Therefore, over a Ashraf wire, the tract was further dilated, then an 8 Scottish percutaneous nephrostomy catheter was introduced over the wire and formed in the renal pelvis during real-time fluoroscopic guidance. A fluoroscopic spot image was obtained and saved in PACS. The catheter was sutured to the skin with 2.0 Prolene sutures and connected to dependent drainage Reference Air Kerma = 15.4 mGy Fluoroscopy time: 1.8 minutes Saved images: 1 Estimated blood loss: Minimal Cotton Converter: None. Complications: None. IMPRESSION: 1. Successful fluoroscopic guided placement of left 8 Scottish percutaneous nephrostomy catheter connected to dependent drainage. 2. Before any attempt at antegrade left stent removal, would recommend waiting until tract matures, patie nt's respiratory status improves, and no further concern for urinary infection. Finalized by Demetri Begum on 05/16/2025 3:47 PM Medications: aspirin, 81 mg, oral, Daily bisacodyL, 10 mg, rectal, Once bisacodyL, 10 mg, rectal, Once carvediloL, 3.125 mg, oral, BID clopidogreL, 75 mg, oral, Daily DAPTOmycin (CUBICIN) IV, 6 mg/kg (Adjusted), intravenous, Q48H darbepoetin reginald (ARANESP) injection, 60 mcg, subcutaneous, Weekly diclofenac sodium, 2 g, topical, 4x Daily ertapenem, 500 mg, intravenous, Q24H gabapentin, 300 mg, oral, Nightly heparin (porcine), 5,000 Units, subcutaneous, Q12H REBA insulin glargine, 20 Units, subcutaneous, Nightly insulin lispro, 2-10 Units, subcutaneous, TID with meals insulin lispro, 2-8 Units, subcutaneous, Nightly micafungin, 100 mg, intravenous, Q24H polyethylene glycol, 17 g, oral, BID sennosides-docusate sodium, 2 tablet, oral, BID [COMPLETED] Consult PICC nurse - Midline, , , Once AND sodium chloride, 10 mL, intravenous, Q12H AND sodium chloride, 10 mL, intravenous, PRN AND sodium chloride, 20 mL, intravenous, PRN sodium chloride, 3 mL, intravenous, Q12H REBA Thank you for allowing us to participate in the care of this patient. Please call with questions. This note was completed using a voice journeyman lineman system. Every effort was made to ensure accuracy. However, inadvertent computerized journeyman lineman errors may be present. KEYANNA Francois [facility] SHAWANDA Araujo 05/19/25 0908 I, Manuel Gan MD, personally performed [id number] diagnostic evaluation on this patient I reviewed and performed all the nolan component of the patient visit I reviewed [place] history, exam and MDM - Manuel Gan MD 05/19/25 10:33 AM * Swapna Mcnair MD - 05/18/2025 11:04 AM EST Images from the original note were not included. 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 with bilateral ureteral stents, exchanged in March 2025, left nephrostomy tube placed on 05/16/2025 Acute on chronic hypoxemic respiratory failure, on nasal cannula 2 liters/minute Acute on chronic diastolic congestive heart failure with bilateral pleural effusion Metabolic alkalosis and respiratory acidosis Anemia, on Aranesp Siobhan and VRE UTI, on daptomycin, micafungin, ertapenem Plan Check ABG Check chest x-ray Hold Bumex Interval history, uneventful night, patient denies chest pain, no SOB, , no abdominal pain, no nausea, no vomiting, Vital signs in last 24 hours: Vitals: 05/18/25 0340 05/18/25 0738 05/18/25 0820 05/18/25 0910 BP: 135/46 143/56 154/59 Pulse: 60 71 71 69 Resp: 06 27 17 Temp: 37.1 ??C (98.8 ??F) TempSrc: Oral SpO2: 98% 100% 98% Weight: Height: Intake/Output: Intake/Output Summary (Last 24 hours) at 05/18/2025 1104 Last data filed at 05/18/2025 0827 Gross per 24 hour Intake 240 ml Output 2280 ml Net -2040 ml Physical Exam: General appearance: alert in no acute distress. Head: Normocephalic, without obvious abnormality, atraumatic Eyes: Conjunctivae unremarkable, pupils reactive Neck: No JVD, no carotid bruit, neck supple, trachea midline cardiovascular: normal S1-S2, No gallops. Respiratory: Decreased breathing sounds at the bases Gastrointestinal: no tenderness, no guarding, no hepatosplenomegaly could be appreciated. Muscloskeletal: LE edema improving, no active arthritis, normal range of movement Neurology: Moves all extremities, alert oriented Skin: no rash, no petechia Psychiatric, no anxiety, no suicidal ideas Lymphatic: no lymphadenopathy, no lymphedema Inpatient Meds: aspirin, 81 mg, oral, Daily bisacodyL, 10 mg, rectal, Once bisacodyL, 10 mg, rectal, Once bumetanide, 2 mg, oral, BID carvediloL, 3.125 mg, oral, BID clopidogreL, 75 mg, oral, Daily DAPTOmycin (CUBICIN) IV, 6 mg/kg (Adjusted), intravenous, Q48H darbepoetin reginald (ARANESP) injection, 60 mcg, subcutaneous, Weekly diclofenac sodium, 2 g, topical, 4x Daily ertapenem, 500 mg, intravenous, Q24H gabapentin, 300 mg, oral, Nightly heparin (porcine), 5,000 Units, subcutaneous, Q12H REBA insulin glargine, 20 Units, subcutaneous, Nightly insulin lispro, 2-10 Units, subcutaneous, TID with meals insulin lispro, 2-8 Units, subcutaneous, Nightly micafungin, 100 mg, intravenous, Q24H polyethylene glycol, 17 g, oral, Daily sennosides-docusate sodium, 2 tablet, oral, BID Consult PICC nurse - Midline, , , Once AND sodium chloride, 10 mL, intravenous, Q12H AND sodium chloride, 10 mL, intravenous, PRN AND sodium chloride, 20 mL, intravenous, PRN sodium chloride, 3 mL, intravenous, Q12H REBA dextrose 5 % in water, 100 mL/hr Nutrition: Dietary Orders (From admission, onward) Start Ordered 05/16/25 1647 Adult diet Regular Texture; No Added Salt (3-4 gm Sodium); Fluid Restriction 1500 mL Diet effective now Question Answer Comment Diet Type: Regular Texture Sodium Modifiers: No Added Salt (3-4 gm Sodium) Fluid Restrictions: Fluid Restriction 1500 mL 05/16/25 1646 Labs: Results from last 7 days Lab Units 05/18/25 0537 05/17/25 1342 05/17/25 0539 05/16/25 0637 05/15/25 1147 05/15/25 0451 05/14/25 0519 SODIUM mmol/L 137 -- 139 139 -- 138 136 POTASSIUM mmol/L 3.7 4.3 3.3* 3.5 4.2 3.6 4.2 CHLORIDE mmol/L 90* -- 91* 91* -- 90* 88* CO2 mmol/L 38* -- 37* 39* -- 40* 37* BUN mg/dL 53* -- 56* 60* -- 67* 72* CREATININE mg/dL 1.63* -- 1.49* 1.60* -- 1.70* 1.69* CALCIUM mg/dL 9.5 -- 9.5 9.6 -- 9.5 9.3 MAGNESIUM mg/dL 2.3 -- 2.3 2.2 -- 2.2 2.1 PHOSPHORUS mg/dL 3.6 -- 3.4 3.1 -- 3.7 3.7 Results from last 7 days Lab Units 05/18/25 0537 05/17/25 0539 05/16/25 0637 WBC X10^9/L 8.6 11.0 9.0 HEMOGLOBIN g/dL 9.9* 9.7* 9.0* HEMATOCRIT % 30.6* 30.2* 27.9* PLATELETS X10^9/L 181 192 181 Results from last 7 days Lab Units 05/18/25 0537 05/17/25 0539 05/16/25 0637 MAGNESIUM mg/dL 2.3 2.3 2.2 Lab Results Component Value Date CALCIUM 9.5 05/18/2025 Lab Results Component Value Date IRON 55 05/09/2025 TIBC 237 (L) 05/09/2025 FERRITIN 133 05/09/2025 Problem list Chronic kidney disease stage 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 Renal serologies from 05/09/2025 showing negative MPO PR3 antibody negative VIVEK normal complements normal free light chain ratio, urinalysis showing 6 hyaline casts large leukocyte esterase 70 protein. Urine protein creatinine ratio of 2.1 g.SPEP Unremarkable. 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 Bilateral ureteral stents for bilateral hydronephrosis for which she gets stents exchange every 3 months Hypertension Diabetes mellitus type 2 Hyperlipidemia Neuropathy Gout Coronary artery disease status post CABG x3 in 2017 Abdominal aortic aneurysm repair Echocardiogram performed 05/10/2025 showing left ventricle size normal with increase hypertrophy noted. Systolic function decreased with EF of 40-45%. Right ventricle size normal systolic function low normal. Pvro-qx-zsrbcjup mitral regurgitation fruh-nw-qaflufri tricuspid regurgitation elevated RVSP of 46 mmHg. SWAPNA MCNAIR MD [facility] ANY QUESTIONS FEEL FREE TO CALL: 1. OFFICE [phone] 2. ANSWERING SERVICE:[phone] YOU CAN CONTACT ME THROUGH [employer] SECURE CHAT DURING THE DAYTIME HOURS, IF NO RESPONSE AFTER 5 MINUTES CALL THE ANSWERING SERVICE This note was created with the assistance of a speech-recognition program. Although the intention is to generate a document that actually reflects the content of the visit, no guarantees can be provided that every mistake has been identified and corrected by editing. * SHAWANDA Nayak - 05/18/2025 10:46 AM EST Midline placement cleared by Nephrology. Order placed. Case Management and RN updated. SHAWANDA Nayak 05/18/25 1046 * Manuel Gan MD - 05/18/2025 8:31 AM EST [facility] - Daily Progress Note Lexi Cm Admission date/time 05/08/2025 8:24 PM Today's Date and Time: 05/18/2025, 8:31 AM Impression : Siobhan glabrata, VRE UTI Acute on chronic HFpEF Positive urine culture with the ESBL Klebsiella in April Bilateral pleural effusions Persistent bilateral hydronephrosis due to retroperitoneal fibrosis status post bilateral ureteral stent exchange 04/12/2025 at outside hospital Status post left nephrostomy tube placement CKD stage 4 Coronary artery disease status post CABG Primary hypertension PAD DM 2 Recent left hip fracture status post surgical fixation 03/21/2025 Recommendations: Chest x-ray 05/15/2025 Mild interval decreased vascular congestion and edema. Procedures 05/16/2025: Left nephrostomy tube placement. Stent retrieval was not attempted. Cultures Blood cultures x2 05/14/2025 in process Urine culture 05/09/2025 Siobhan glabrata and VRE. Positive urine culture with ESBL Klebsiella in April scan in the media chart Antibiotics On micafungin, daptomycin and ertapenem until May 27 No statins while on daptomycin Monitor CK level The patient will need to midline IV prior to discharge for antibiotic administration if okay with Nephrology. Epic chat sent to Dr. Mcnair for clearance. Urology on consult. Follow up with primary urologist outpatient for stent retrieval. Follow-up WBC platelets creatinine LFT ID clinic in 2-3 weeks Supportive care FOLLOW UP/chief complaints UTI Interval History: Patient was seen resting in bed. She is afebrile. Denies nausea, vomiting, diarrhea, itch, rash. ROS: Negative except as above Social History: Social History Socioeconomic History Marital status: Spouse name: Not on file Number of children: Not on file Years of education: Not on file Highest education level: Not on file Occupational History Not on file Tobacco Use Smoking status: Never Smokeless tobacco: Never Substance and Sexual Activity Alcohol use: Never Drug use: Never Sexual activity: Not on file Other Topics Concern Not on file Social History Narrative Not on file Social Drivers of Health Financial Resource Strain: Low Risk (05/09/2025) Overall Financial Resource Strain (CARDIA) Difficulty of Paying Living Expenses: Not hard at all Food Insecurity: No Food Insecurity (05/09/2025) Hunger Screening Food Insecurity - Worry: Never True Food Insecurity - Inability: Never True Transportation Needs: No Transportation Needs (05/09/2025) PRAPARE - Transportation Lack of Transportation (Medical): No Lack of Transportation (Non-Medical): No Physical Activity: Not on file Stress: Not on file Social Connections: Not on file Interpersonal Safety: Not At Risk (05/09/2025) Humiliation, Afraid, Rape, and Kick questionnaire Fear of Current or Ex-Partner: No Emotionally Abused: No Physically Abused: No Sexually Abused: No Housing Instability: Low Risk (05/09/2025) Housing Instability Housing Instability: No Family History: Family History Family history unknown: Yes Physical Examination : Vitals: 05/18/25 0330 05/18/25 0340 05/18/25 0738 05/18/25 0820 BP: 135/46 135/46 143/56 Pulse: 60 60 71 71 Resp: 12 12 15 17 Temp: 36.6 ??C (97.9 ??F) 37.1 ??C (98.8 ??F) TempSrc: Axillary Oral SpO2: 99% 98% 100% 98% Weight: Height: Temperature Range: Temp: 37.1 ??C (98.8 ??F) Temp Av.9 ??C (98.4 ??F) Min: 36.6 ??C (97.9 ??F)Max: 37.1 ??C (98.8 ??F) General Appearance: Awake, alert, and in no apparent distress Pulmonary/Chest: Clear to auscultation, without wheezes, rales, or rhonchi Cardiovascular: Regular rate and rhythm without murmurs, rubs, or gallops. Abdomen: soft, non-tender, without masses or organomegaly, normal bowel sounds Extremities: No cyanosis, clubbing, edema, or effusions. Skin:no unusual rash Laboratory data: I have independently reviewed the following labs: Results from last 7 days Lab Units 05/18/25 0537 05/17/25 0539 05/16/25 0637 WBC X10^9/L 8.6 11.0 9.0 HEMOGLOBIN g/dL 9.9* 9.7* 9.0* HEMATOCRIT % 30.6* 30.2* 27.9* PLATELETS X10^9/L 181 192 181 Results from last 7 days Lab Units 05/18/25 0537 05/17/25 1342 05/17/25 0539 05/16/25 0637 POTASSIUM mmol/L 3.7 4.3 3.3* 3.5 CHLORIDE mmol/L 90* -- 91* 91* CO2 mmol/L 38* -- 37* 39* BUN mg/dL 53* -- 56* 60* CREATININE mg/dL 1.63* -- 1.49* 1.60* EGFR (CKD-EPI) NON-RACE DEPENDENT ml/min/1.73sq.m 32* -- 36* 33* CALCIUM mg/dL 9.5 -- 9.5 9.6 MAGNESIUM mg/dL 2.3 -- 2.3 2.2 Results from last 7 days Lab Units 05/15/25 0451 05/14/25 0519 05/13/25 0532 ALK PHOS U/L 54 55 53 ALT U/L 3 <3 <3 AST U/L 10 14 12 No results found for: CRP No results found for: SEDRATE Cultures: Microbiology Results Procedure Component Value Units Date/Time Blood culture #1 [[id number]] Collected: 05/14/25 0952 Specimen: Blood, Venous Updated: 05/17/25 1002 CULTURE RESULTS NO GROWTH 3 DAYS Narrative: Suboptimal volume of blood collected, Results may be affected. Blood culture #2 [[id number]] Collected: 05/14/25 0952 Specimen: Blood, Venous Updated: 05/17/25 1002 CULTURE RESULTS NO GROWTH 3 DAYS Narrative: Suboptimal volume of blood collected, Results may be affected. Imaging Studies: IR percutaneous placement nephrostomy tube left Result Date: 05/16/2025 1. Ultrasound guided puncture of left renal collecting system. 2. Left Antegrade nephrostogram. 3. Fluoroscopic guided placement of left 8 Scottish percutaneous nephrostomy catheter. CLINICAL INDICATION: Left hydronephrosis due to ureteral obstruction. CONSENT: The risks, benefits, and expectations of the procedure were eplained to the patient who signed a written consent. SEDATION: 50 mcg fentanylfor pain control. 10 mL 1% lidocaine. PROCEDURE: All elements of maximal sterile barrier techniquesfollowed including: cap and mask and sterile gown and sterile gloves and a large sterile sheet and hand hygiene and 2% chlorhexidine for cutaneous antiseptics; in addition, sterile ultrasound techniques including sterile gel and sterile probe per hospital policy followed. The patient was placed on the fluoroscopy table in the prone position, and both flanks were prepped and draped in a sterile fashion. Evaluation of the left kidney with ultrasound confirmed the presence of left hydronephrosis. Ultrasound revealed a good window for percutaneous access . Therefore, the skin was infiltrated with1% lidocaine, and a small skin abiel with an 11 blade was made. Using real-time ultrasound guidance A 21-gauge Chiba needle was advanced percutaneously into a posterior calyx of the left kidney duringdirect ultrasound needle visualization, and an ultrasound truck sales representative image was obtained and saved in PACS. An 018 wire was successfully introduced through the needle into the renal pelvis, then over the wire, the tract was dilated using an AccuStick set and the dilator was placed in the left renal pelvis. Contrast was injected and an antegrade nephrostogram was obtained. This confirmed left hydronephrosis due to ureteral obstruction. Therefore, over a Ashraf wire, the tract was further dilated, then an 8 Scottish percutaneous nephrostomy catheter was introduced over the wire and formed in the renal pelvis during real-time fluoroscopic guidance. A fluoroscopic spot image was obtained and saved in PACS. The catheter was sutured to the skin with 2.0 Prolene sutures and connected to dependent drainage Reference Air Kerma = 15.4 mGy Fluoroscopy time: 1.8 minutes Saved images: 1 Estimated blood loss: Minimal Cotton Converter: None. Complications: None. IMPRESSION: 1. Successful fluoroscopic guided placement of left 8 Scottish percutaneous nephrostomy catheter connected to dependent drainage. 2. Before any attempt at antegrade left stent removal, would recommend waiting until tract matures, patie nt's respiratory status improves, and no further concern for urinary infection. Finalized by Demetri Begum on 05/16/2025 3:47 PM X-ray chest 1 view Result Date: 05/15/2025 Single view chest History:evaluate if there is improvement in vascular congestion Difficulty breathing, shortness of breath Comparison: 05/12/2025 Findings: Single portable view of the chest. Mild interval decreased vascular congestion. Bilateral lower lung atelectasis and small bilateral pleural ef fusions. Stable cardiomediastinal silhouette. Impression: Mild interval decreased vascular congestion and edema. Finalized by David Connolly MD on 05/15/2025 9:38 AM Medications: aspirin, 81 mg, oral, Daily bisacodyL, 10 mg, rectal, Once bisacodyL, 10 mg, rectal, Once bumetanide, 2 mg, oral, BID carvediloL, 3.125 mg, oral, BID clopidogreL, 75 mg, oral, Daily DAPTOmycin (CUBICIN) IV, 6 mg/kg (Adjusted), intravenous, Q48H darbepoetin reginald (ARANESP) injection, 60 mcg, subcutaneous, Weekly diclofenac sodium, 2 g, topical, 4x Daily ertapenem, 500 mg, intravenous, Q24H gabapentin, 300 mg, oral, Nightly heparin (porcine), 5,000 Units, subcutaneous, Q12H REBA insulin glargine, 20 Units, subcutaneous, Nightly insulin lispro, 2-10 Units, subcutaneous, TID with meals insulin lispro, 2-8 Units, subcutaneous, Nightly micafungin, 100 mg, intravenous, Q24H polyethylene glycol, 17 g, oral, Daily sennosides-docusate sodium, 2 tablet, oral, BID sodium chloride, 3 mL, intravenous, Q12H [facility] Thank you for allowing us to participate in the care of this patient. Please call with questions. Rohini Kimbrough, CATHIE-LICENSING ANALYST This note was completed using a voice journeyman lineman system. Every effort was made to ensure accuracy. However, inadvertent computerized journeyman lineman errors may be present. SHAWANDA Nayak 05/18/25 0942 IManuel MD, personally performed [id number] diagnostic evaluation on this patient I reviewed and performed all the nolan component of the patient visit I reviewed [place] history, exam and MDM - Manuel Gan MD 05/18/25 10:29 AM * Basilia Holcomb MD - 05/18/2025 8:28 AM EST Images from the original note were not included. [facility] Progress Note Patient - Lexi Cm Age - 79 y.o. - 1945 Date of Admission - 05/08/2025 8:24 PM ASSESSMENT 1. Acute hypoxic hypercapnic respiratory failure in the setting of decompensated diastolic heart failure, pleural effusion, possible obesity hypoventilation syndrome and restrictive ventilatory defect. clinically improved 2. suspected obesity hypoventilation syndrome 3. Possible restrictive ventilatory defect due to body habitus and muscle weakness 4. Acute decompensated Heart failure 5. Chronic kidney disease 6. Bilateral pleural effusion due to decompensated congestive heart failure PLAN Patient currently saturating well on 2LNC Patient would benefit from outpatient PFTs Physical therapy Patient would benefit from outpatient PAP therapy given chronic hypercapnic respiratory failure anssuspected OHS. Discussed with inspector health care facilities. Patient will have pap therapy at SNF. Patient agreeable to use. Discharge planning to [facility] No objection to discharge from pulmonary perspective. SUBJECTIVE Overnight events reviewed. Patient is afebrile, no leukocytosis and hemodynamically stable. Currently on daptomycin, ertapenem and micafungin per ID. CXR from 05/15 with decreasing congestion VITALS BP 143/56 Pulse 71 Temp 37.1 ??C (98.8 ??F) (Oral) Resp 17 Ht 149.9 cm (4' 11 ) Wt 70.9 kg (156 lb 4.9 oz) LMP (LMP Unknown) SpO2 98% BMI 31.57 kg/m?? Exam Physical Exam General: Awake, alert and oriented. In no acute distress HEENT: normal conjunctiva, no stridor, trachea midline Cardiac: Regular rate and rhythm. Pulmonary: clear to auscultation bilaterally. Normal work of breathing. Equal chest rise Extremities: No significant lower extremity edema. Skin: warm and dry Meds Medications Reviewed. Lab Results LABs: Results from last 7 days Lab Units 05/18/25 0537 05/17/25 0539 05/16/25 0637 WBC X10^9/L 8.6 11.0 9.0 HEMOGLOBIN g/dL 9.9* 9.7* 9.0* HEMATOCRIT % 30.6* 30.2* 27.9* PLATELETS X10^9/L 181 192 181 Results from last 7 days Lab Units 05/18/25 0537 05/17/25 1342 05/17/25 0539 05/16/25 0637 POTASSIUM mmol/L 3.7 4.3 3.3* 3.5 CHLORIDE mmol/L 90* -- 91* 91* CO2 mmol/L 38* -- 37* 39* BUN mg/dL 53* -- 56* 60* CREATININE mg/dL 1.63* -- 1.49* 1.60* CALCIUM mg/dL 9.5 -- 9.5 9.6 Basilia Holcomb MD [facility] Pulmonary / Critical Care * Janel Al MD - 05/18/2025 7:31 AM EST [facility] Progress Note 05/18/2025 Hospital Day: 11 Patient Name: Lexi Cm : 1945 ASSESSMENT / PLAN Acute hypoxic hypercapnic respiratory failure requiring NIPPV- now on 3L O2 NC: LLL community acquired pneumonia/ Aspiration pneumonia: Concern for obesity hypoventilation syndrome Acute on chronic HFpEF (TTE EF 55% (05/02/25) B/l Pleural effusions -BNP at OSH was 11,105. -On 3L NC and BiPAP at night -completed IV Levofloxacin 05/09/25 -S/p IV bumex now on oral Bumex -Continue PO bumex. Strict I/O and daily weight. Monitor kidney function and electrolytes. Nephro following. -Pulm following and recommend BiPAP at night on discharge. Patient will need PFTs outpatient. 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 Tovar catheter removed 05/17/2025 -status post left percutaneous nephrostomy tube placement on 05/16/25 with Interventional Radiology -ID following. Continue ertapenem, daptomycin, and micafungin. Planned for two week (until ). No statin while on daptomycin. Anisocoria -Stroke alert called 05/13/25 due to dilated left pupil, left facial droop -CT head 05/13/25 nonacute -MRA head pending - if unable to get inpatient, per neurology, okay to follow-up on it outpatient CAD s/p CABG Primary HTN PAD -Continue Coreg 3.125 mg p.o. b.i.d. -home Plavix and aspirin were held after 05/09/25 prior to IR procedure -home Plavix aspirin resumed Acute kidney injury on chronic kidney disease stage 4 Hyponatremia, resolved Hyperkalemia, resolved -continue to monitor -nephrology following Type 2 diabetes mellitus -hemoglobin A1c 6.3 -continue Lantus 20 units nightly and lispro moderate correction scale a.c./HS Constipation -MiraLax daily. Sennakot-s bid. Dulcolax suppository p.r.n.. DVT prophylaxis: Subcutaneous heparin Discharge planning: long-term facility Follow up with pulmonology for pulmonary function tests and sleep study as outpatient Follow up with the patient's primary urologist for outpatient stent retrieval Follow up with Neurology for MRA head Subjective SUBJECTIVE No events reported overnight. Patient was evaluated at bedside. Resting in bed. She has no acute complaints. She remains afebrile. She denies chest pain, shortness on breath, abdominal pain, nausea, or vomiting. Objective OBJECTIVE Physical Exam: General appearance: alert, in no apparent distress HEENT: atraumatic, EOM intact, no erythema Lungs: clear to auscultation bilaterally, no use of accessory muscles Heart: RRR, normal S1 and S2, no murmurs Abdomen: soft, non-distended, non-tender, normoactive bowel sounds Extremities: no edema, no rash Neurologic: no focal motor deficits Psychiatric: appropriate mood and affect Vital Signs: Temp: [36.6 ??C (97.9 ??F)-37.1 ??C (98.7 ??F)] 36.6 ??C (97.9 ??F) Pulse: [60-73] 60 Resp: [12-23] 12 BP: (114-168)/(46-62) 135/46 FiO2 (%): [30 %] 30 % SpO2: [98 %-100 %] 98 % O2 Device: Nasal cannula O2 Flow Rate (L/min): [3 L/min] 3 L/min Weight: Body mass index is 31.57 kg/m??. Admission weight: 77.6 kg (171 lb 1.2 oz) Wt Readings from Last 3 Encounters: 05/17/25 70.9 kg (156 lb 4.9 oz) Input/Output: Intake/Output Summary (Last 24 hours) at 05/18/2025 0731 Last data filed at 05/18/2025 0330 Gross per 24 hour Intake 840 ml Output 2080 ml Net -1240 ml Labs/Imaging: Recent Results (from the past 24 hours) Bedside Glucose *Place/Obtain serum glucose if >500 per glucometer. Collection Time: 05/17/25 7:50 AM Result Value Ref Range Bedside Glucose (POC) 145 (H) 65 - 99 mg/dL Bedside Glucose *Place/Obtain serum glucose if >500 per glucometer. Collection Time: 05/17/25 11:52 AM Result Value Ref Range Bedside Glucose (POC) 264 (H) 65 - 99 mg/dL Potassium Collection Time: 05/17/25 1:42 PM Result Value Ref Range POTASSIUM 4.3 3.5 - 5.0 mmol/L Bedside Glucose *Place/Obtain serum glucose if >500 per glucometer. Collection Time: 05/17/25 5:02 PM Result Value Ref Range Bedside Glucose (POC) 200 (H) 65 - 99 mg/dL Bedside Glucose *Place/Obtain serum glucose if >500 per glucometer. Collection Time: 05/17/25 8:35 PM Result Value Ref Range Bedside Glucose (POC) 198 (H) 65 - 99 mg/dL CBC auto differential Collection Time: 05/18/25 5:37 AM Result Value Ref Range WBC 8.6 4 - 11 X10^9/L RBC Count 3.16 (L) 3.8 - 5.2 X10^12/L Hemoglobin 9.9 (L) 11.7 - 15.5 g/dL Hematocrit 30.6 (L) 35 - 47 % MCV 97 80 - 100 fL MCH 31.2 27 - 34 pg MCHC 32.2 32 - 36 g/dL RDW 18.9 (H) 11.5 - 15 % Platelet Count 181 150 - 450 X10^9/L MPV 9.5 7 - 12 fL Neutrophils % 64.3 % Lymphocytes % 23.2 % Monocytes % 9.4 % Eosinophils % 2.2 % Basophils % 0.9 % Neutrophils Absolute (A) 5.5 1.5 - 6.6 X10^9/L Lymphocytes Absolute 2.0 1.0 - 3.5 X10^9/L Monocytes Absolute 0.8 0.0 - 0.9 X10^9/L Eosinophils Absolute 0.2 0.0 - 0.4 X10^9/L Basophils Absolute 0.1 0.0 - 0.2 X10^9/L Differential Type AUTOMATED DIFFERENTIAL Basic Metabolic Panel Collection Time: 05/18/25 5:37 AM Result Value Ref Range SODIUM 137 134 - 146 mmol/L POTASSIUM 3.7 3.5 - 5.0 mmol/L CHLORIDE 90 (L) 98 - 109 mmol/L CARBON DIOXIDE 38 (H) 22 - 32 mmol/L ANION GAP 9 5 - 15 mmol/L BLOOD UREA NITROGEN 53 (H) 5 - 27 mg/dL CREATININE 1.63 (H) 0.40 - 1.00 mg/dL GLUCOSE 90 65 - 99 mg/dL CALCIUM 9.5 8.5 - 10.5 mg/dL EGFR Non-Race Dependent 32 (L) >=60 ml/min/1.73sq.m Magnesium Collection Time: 05/18/25 5:37 AM Result Value Ref Range MAGNESIUM 2.3 1.8 - 2.6 mg/dL Phosphorus Collection Time: 05/18/25 5:37 AM Result Value Ref Range PHOSPHORUS 3.6 2.4 - 4.9 mg/dL All available laboratory, imaging, and microbiology data has been personally reviewed in detail, and accessible in full per EMR. Medications: aspirin, 81 mg, oral, Daily bisacodyL, 10 mg, rectal, Once bumetanide, 2 mg, oral, BID carvediloL, 3.125 mg, oral, BID clopidogreL, 75 mg, oral, Daily DAPTOmycin (CUBICIN) IV, 6 mg/kg (Adjusted), intravenous, Q48H darbepoetin reginald (ARANESP) injection, 60 mcg, subcutaneous, Weekly diclofenac sodium, 2 g, topical, 4x Daily ertapenem, 500 mg, intravenous, Q24H gabapentin, 300 mg, oral, Nightly heparin (porcine), 5,000 Units, subcutaneous, Q12H REBA insulin glargine, 20 Units, subcutaneous, Nightly insulin lispro, 2-10 Units, subcutaneous, TID with meals insulin lispro, 2-8 Units, subcutaneous, Nightly micafungin, 100 mg, intravenous, Q24H polyethylene glycol, 17 g, oral, Daily senna, 8.6 mg, oral, BID sodium chloride, 3 mL, intravenous, Q12H REBA acetaminophen bisacodyL calcium gluconate calcium gluconate calcium gluconate dextrose dextrose 5 % in water dextrose 50 % in water (D50W) glucagon (human recombinant) guaiFENesin ipratropium-albuteroL magnesium sulfate magnesium sulfate midodrine ondansetron potassium chloride OR potassium chloride OR potassium chloride IV (Adult) sennosides-docusate sodium sodium phosphate IV OR sodium phosphate IV - central line OR sod phos di, mono-K phos mono sodium chloride sodium chloride Janel Al MD * Swapna Mcnair MD - 05/17/2025 3:52 PM EST Images from the original note were not included. 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 with bilateral ureteral stents, exchanged in March 2025, left nephrostomy tube placed on 05/16/2025 Acute on chronic hypoxemic respiratory failure, on nasal cannula 2 liters/minute Acute on chronic diastolic congestive heart failure with bilateral pleural effusion Metabolic alkalosis and respiratory acidosis Anemia, on Aranesp Siobhan and VRE UTI, on daptomycin, micafungin, ertapenem Interval history, uneventful night, patient denies chest pain, no SOB, , no abdominal pain, no nausea, no vomiting, Vital signs in last 24 hours: Vitals: 05/17/25 0854 05/17/25 1153 05/17/25 1206 05/17/25 1220 BP: 114/50 Pulse: 68 70 71 69 Resp: 19 23 13 20 Temp: 36.7 ??C (98 ??F) TempSrc: Oral SpO2: 100% 100% 100% 100% Weight: Height: Intake/Output: Intake/Output Summary (Last 24 hours) at 05/17/2025 1552 Last data filed at 05/17/2025 1156 Gross per 24 hour Intake 1198.76 ml Output 2560 ml Net -1361.24 ml Physical Exam: General appearance: alert in no acute distress. Head: Normocephalic, without obvious abnormality, atraumatic Eyes: Conjunctivae unremarkable, pupils reactive Neck: No JVD, no carotid bruit, neck supple, trachea midline cardiovascular: normal S1-S2, No gallops. Respiratory: Decreased breathing sounds at the bases Gastrointestinal: no tenderness, no guarding, no hepatosplenomegaly could be appreciated. Muscloskeletal: LE edema improving, no active arthritis, normal range of movement Neurology: Moves all extremities, alert oriented Skin: no rash, no petechia Psychiatric, no anxiety, no suicidal ideas Lymphatic: no lymphadenopathy, no lymphedema Inpatient Meds: bisacodyL, 10 mg, rectal, Once bumetanide, 2 mg, oral, BID carvediloL, 3.125 mg, oral, BID DAPTOmycin (CUBICIN) IV, 6 mg/kg (Adjusted), intravenous, Q48H darbepoetin reginald (ARANESP) injection, 60 mcg, subcutaneous, Weekly diclofenac sodium, 2 g, topical, 4x Daily ertapenem, 500 mg, intravenous, Q24H gabapentin, 300 mg, oral, Nightly heparin (porcine), 5,000 Units, subcutaneous, Q12H REBA insulin glargine, 20 Units, subcutaneous, Nightly insulin lispro, 2-10 Units, subcutaneous, TID with meals insulin lispro, 2-8 Units, subcutaneous, Nightly micafungin, 100 mg, intravenous, Q24H polyethylene glycol, 17 g, oral, Daily senna, 8.6 mg, oral, BID sodium chloride, 3 mL, intravenous, Q12H REAB dextrose 5 % in water, 100 mL/hr Nutrition: Dietary Orders (From admission, onward) Start Ordered 05/16/25 1647 Adult diet Regular Texture; No Added Salt (3-4 gm Sodium); Fluid Restriction 1500 mL Diet effective now Question Answer Comment Diet Type: Regular Texture Sodium Modifiers: No Added Salt (3-4 gm Sodium) Fluid Restrictions: Fluid Restriction 1500 mL 05/16/25 1646 Labs: Results from last 7 days Lab Units 05/17/25 1342 05/17/25 0539 05/16/25 0637 05/15/25 1147 05/15/25 0451 05/14/25 0519 05/13/25 0901 05/12/25 0554 SODIUM mmol/L -- 139 139 -- 138 136 138 135 POTASSIUM mmol/L 4.3 3.3* 3.5 4.2 3.6 4.2 4.2 4.4 CHLORIDE mmol/L -- 91* 91* -- 90* 88* 89* 89* CO2 mmol/L -- 37* 39* -- 40* 37* 41* 36* BUN mg/dL -- 56* 60* -- 67* 72* 79* 73* CREATININE mg/dL -- 1.49* 1.60* -- 1.70* 1.69* 1.92* 1.87* CALCIUM mg/dL -- 9.5 9.6 -- 9.5 9.3 9.8 9.2 MAGNESIUM mg/dL -- 2.3 2.2 -- 2.2 2.1 -- 2.1 PHOSPHORUS mg/dL -- 3.4 3.1 -- 3.7 3.7 -- -- Results from last 7 days Lab Units 05/17/25 0539 05/16/25 0637 05/15/25 0451 WBC x10E9/L 11.0 9.0 9.4 HEMOGLOBIN g/dL 9.7* 9.0* 8.9* HEMATOCRIT % 30.2* 27.9* 28.0* PLATELETS X10E9/L 192 181 187 Results from last 7 days Lab Units 05/17/25 0539 05/16/25 0637 05/15/25 0451 MAGNESIUM mg/dL 2.3 2.2 2.2 Lab Results Component Value Date CALCIUM 9.5 05/17/2025 Lab Results Component Value Date IRON 55 05/09/2025 TIBC 237 (L) 05/09/2025 FERRITIN 133 05/09/2025 Problem list Chronic kidney disease stage 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 Renal serologies from 05/09/2025 showing negative MPO PR3 antibody negative VIVEK normal complements normal free light chain ratio, urinalysis showing 6 hyaline casts large leukocyte esterase 70 protein. Urine protein creatinine ratio of 2.1 g.SPEP Unremarkable. 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 Bilateral ureteral stents for bilateral hydronephrosis for which she gets stents exchange every 3 months Hypertension Diabetes mellitus type 2 Hyperlipidemia Neuropathy Gout Coronary artery disease status post CABG x3 in 2017 Abdominal aortic aneurysm repair Echocardiogram performed 05/10/2025 showing left ventricle size normal with increase hypertrophy noted. Systolic function decreased with EF of 40-45%. Right ventricle size normal systolic function low normal. [id number] mitral regurgitation ogpi-km-tretsnys tricuspid regurgitation elevated RVSP of 46 mmHg. SWAPNA MCNAIR MD [facility] ANY QUESTIONS FEEL FREE TO CALL: 1. OFFICE [phone] 2. ANSWERING SERVICE:[phone] YOU CAN CONTACT ME THROUGH [employer] SECURE CHAT DURING THE DAYTIME HOURS, IF NO RESPONSE AFTER 5 MINUTES CALL THE ANSWERING SERVICE This note was created with the assistance of a speech-recognition program. Although the intention is to generate a document that actually reflects the content of the visit, no guarantees can be provided that every mistake has been identified and corrected by editing. * Janel Al MD - 05/17/2025 10:33 AM EST [facility] Progress Note 05/17/2025 Hospital Day: 10 Patient Name: Lexi Cm : 1945 ASSESSMENT / PLAN Acute hypoxic hypercapnic respiratory failure requiring NIPPV- now on 2L O2 NC: LLL community acquired pneumonia/ Aspiration pneumonia: Concern for obesity hypoventilation syndrome Acute on chronic HFpEF (TTE EF 55% (05/02/25): B/l Pleural effusions: -BNP at OSH was 11,105. -On 2L NC and BiPAP at night -completed IV Levofloxacin 05/09/25 -S/p IV bumex now on oral Bumex -Continue PO bumex. Strict I/O and daily weight. Monitor kidney function and electrolytes. Nephro following. -Pulm following and recommend BiPAP at night on discharge. Patient will need PFTs outpatient. 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 Tovar catheter be removed today -status post left percutaneous nephrostomy tube placement on 05/16/25 with Interventional Radiology -ID following. Continue ertapenem, daptomycin, ad micafungin. Anisocoria -Stroke alert called 05/13/25 due to dilated left pupil, left facial droop -CT head 05/13/25 nonacute -MRA head pending - if unable to get inpatient, per neurology, okay to follow-up on it outpatient -Neuro followed CAD s/p CABG Primary HTN PAD -Continue Coreg 3.125 mg p.o. b.i.d. -home Plavix and aspirin were held after 05/09/25 prior to IR procedure -resume home Plavix aspirin once able post-procedurally Acute kidney injury on chronic kidney disease stage 4 Hyponatremia, resolved Hyperkalemia, resolved -continue to monitor -nephrology following Type 2 diabetes mellitus -hemoglobin A1c 6.3 -continue Lantus 20 units nightly and lispro moderate correction scale a.c./HS Constipation -MiraLax daily. Senna increased bid. Dulcolax suppository p.r.n.. DVT prophylaxis: Subcutaneous heparin Discharge planning: long-term facility Subjective SUBJECTIVE No events reported overnight. Patient was evaluated at bedside. Discussed with spouse at bedside. Patient had nephrostomy tube placement yesterday with Interventional Radiology. She denies fever, chills, chest pain, shortness on breath, abdominal pain, nausea, or vomiting. Spouse reports patient has not had bowel movement for the past week. Objective OBJECTIVE Physical Exam: General appearance: alert, in no apparent distress HEENT: atraumatic, EOM intact, no erythema Lungs: clear to auscultation bilaterally, no use of accessory muscles Heart: RRR, normal S1 and S2, no murmurs Abdomen: soft, non-distended, non-tender, normoactive bowel sounds Extremities: no edema, no rash Neurologic: no focal motor deficits Psychiatric: appropriate mood and affect Vital Signs: Temp: [36 ??C (96.8 ??F)-36.8 ??C (98.2 ??F)] 36.8 ??C (98.2 ??F) Pulse: [63-81] 68 Resp: [11-23] 19 BP: (135-175)/(44-66) 168/56 FiO2 (%): [30 %] 30 % SpO2: [88 %-100 %] 100 % O2 Device: Nasal cannula O2 Flow Rate (L/min): [2 L/min-15 L/min] 3 L/min Weight: Body mass index is 31.93 kg/m??. Admission weight: 77.6 kg (171 lb 1.2 oz) Wt Readings from Last 3 Encounters: 05/17/25 71.7 kg (158 lb 1.1 oz) Input/Output: Intake/Output Summary (Last 24 hours) at 05/17/2025 1033 Last data filed at 05/17/2025 0947 Gross per 24 hour Intake 1198.76 ml Output 2610 ml Net -1411.24 ml Labs/Imaging: Recent Results (from the past 24 hours) Bedside Glucose *Place/Obtain serum glucose if >500 per glucometer. Collection Time: 05/16/25 11:07 AM Result Value Ref Range Bedside Glucose (POC) 119 (H) 65 - 99 mg/dL Bedside Glucose *Place/Obtain serum glucose if >500 per glucometer. Collection Time: 05/16/25 4:14 PM Result Value Ref Range Bedside Glucose (POC) 97 65 - 99 mg/dL Bedside Glucose *Place/Obtain serum glucose if >500 per glucometer. Collection Time: 05/16/25 10:00 PM Result Value Ref Range Bedside Glucose (POC) 249 (H) 65 - 99 mg/dL CBC auto differential Collection Time: 05/17/25 5:39 AM Result Value Ref Range WBC 11.0 4 - 11 x10E9/L RBC Count 3.11 (L) 3.8 - 5.2 X10E12/L Hemoglobin 9.7 (L) 11.7 - 15.5 g/dL Hematocrit 30.2 (L) 35 - 47 % MCV 97 80 - 100 fL MCH 31.2 27 - 34 pg MCHC 32.2 32 - 36 g/dL RDW 18.9 (H) 11.5 - 15 % Platelet Count 192 150 - 450 X10E9/L MPV 9.6 7 - 12 fL Neutrophils % 74.0 % Lymphocytes % 15.8 % Monocytes % 7.8 % Eosinophils % 1.7 % Basophils % 0.7 % Neutrophils Absolute (A) 8.2 (H) 1.5 - 6.6 10*3/uL Lymphocytes Absolute 1.7 1.0 - 3.5 10*3/uL Monocytes Absolute 0.9 0.0 - 0.9 10*3/uL Eosinophils Absolute 0.2 0.0 - 0.4 10*3/uL Basophils Absolute 0.1 0.0 - 0.2 10*3/uL Differential Type AUTOMATED DIFFERENTIAL Basic Metabolic Panel Collection Time: 05/17/25 5:39 AM Result Value Ref Range SODIUM 139 134 - 146 mmol/L POTASSIUM 3.3 (L) 3.5 - 5.0 mmol/L CHLORIDE 91 (L) 98 - 109 mmol/L CARBON DIOXIDE 37 (H) 22 - 32 mmol/L ANION GAP 11 5 - 15 mmol/L BLOOD UREA NITROGEN 56 (H) 5 - 27 mg/dL CREATININE 1.49 (H) 0.40 - 1.00 mg/dL GLUCOSE 127 (H) 65 - 99 mg/dL CALCIUM 9.5 8.5 - 10.5 mg/dL EGFR Non-Race Dependent 36 (L) >=60 ml/min/1.73sq.m Magnesium Collection Time: 05/17/25 5:39 AM Result Value Ref Range MAGNESIUM 2.3 1.8 - 2.6 mg/dL Phosphorus Collection Time: 05/17/25 5:39 AM Result Value Ref Range PHOSPHORUS 3.4 2.4 - 4.9 mg/dL CK Total Collection Time: 05/17/25 5:39 AM Result Value Ref Range CPK 13 (L) 24 - 170 U/L Bedside Glucose *Place/Obtain serum glucose if >500 per glucometer. Collection Time: 05/17/25 7:50 AM Result Value Ref Range Bedside Glucose (POC) 145 (H) 65 - 99 mg/dL All available laboratory, imaging, and microbiology data has been personally reviewed in detail, and accessible in full per EMR. Medications: bisacodyL, 10 mg, rectal, Once bumetanide, 2 mg, oral, BID carvediloL, 3.125 mg, oral, BID DAPTOmycin (CUBICIN) IV, 6 mg/kg (Adjusted), intravenous, Q48H darbepoetin reginald (ARANESP) injection, 60 mcg, subcutaneous, Weekly diclofenac sodium, 2 g, topical, 4x Daily ertapenem, 500 mg, intravenous, Q24H gabapentin, 300 mg, oral, Nightly heparin (porcine), 5,000 Units, subcutaneous, Q12H REBA insulin glargine, 20 Units, subcutaneous, Nightly insulin lispro, 2-10 Units, subcutaneous, TID with meals insulin lispro, 2-8 Units, subcutaneous, Nightly micafungin, 100 mg, intravenous, Q24H polyethylene glycol, 17 g, oral, Daily senna, 8.6 mg, oral, BID sodium chloride, 3 mL, intravenous, Q12H REBA acetaminophen bisacodyL calcium gluconate calcium gluconate calcium gluconate dextrose dextrose 5 % in water dextrose 50 % in water (D50W) glucagon (human recombinant) guaiFENesin ipratropium-albuteroL magnesium sulfate magnesium sulfate midodrine ondansetron potassium chloride OR potassium chloride OR potassium chloride IV (Adult) sennosides-docusate sodium sodium phosphate IV OR sodium phosphate IV - central line OR sod phos di, mono-K phos mono sodium chloride sodium chloride Jnael Al MD * Ciro Mcgee MD - 05/17/2025 9:12 AM EST Images from the original note were not included. [facility] Progress Note Patient - Lexi Cm Age - 79 y.o. - 1945 Date of Admission - 05/08/2025 8:24 PM ASSESSMENT 1. Acute hypoxic hypercapnic respiratory failure seems to be multifactorial in the setting of diastolic congestive heart failure with acute decompensation, pleural effusion, suspecting obesity hypoventilation syndrome and restrictive ventilatory defect clinically improved 2. Suspecting obesity hypoventilation syndrome 3. Possible restrictive ventilatory defect due to body habitus and muscle weakness 4. Hyper cannula acute on chronic seems to be multifactorial 5. Chronic kidney disease 6. Bilateral pleural effusion due to decompensated congestive heart failure PLAN Respiratory status seems to be stable on nasal cannula Patient will benefit from been discharged on noninvasive nocturnal mechanical ventilation PFTs and sleep study as outpatient Wean oxygen down as tolerated. Goal to keep saturation above 90% Out of bed to chair Physical therapy DC planning Follow-up with pulmonary as outpatient SUBJECTIVE Overnight events reviewed VITALS BP 168/56 Pulse 68 Temp 36.8 ??C (98.2 ??F) (Oral) Resp 19 Ht 149.9 cm (4' 11 ) Wt 71.7 kg (158 lb 1.1 oz) LMP (LMP Unknown) SpO2 100% BMI 31.93 kg/m?? Exam Physical Exam Constitutional No distress. Nursing note and vitals reviewed. HENT Head Normocephalic and atraumatic. Cardiovascular: Normal rate. Pulmonary/Chest: She has no wheezes. No respiratory distress. Mildly diminished air entry b/l Neurological Sleeping comfortable Skin: She is not diaphoretic. Meds Medications Reviewed. Lab Results LABs: Results from last 7 days Lab Units 05/17/25 0539 05/16/25 0637 05/15/25 0451 WBC x10E9/L 11.0 9.0 9.4 HEMOGLOBIN g/dL 9.7* 9.0* 8.9* HEMATOCRIT % 30.2* 27.9* 28.0* PLATELETS X10E9/L 192 181 187 Results from last 7 days Lab Units 05/17/25 0539 05/16/25 0637 05/15/25 1147 05/15/25 0451 POTASSIUM mmol/L 3.3* 3.5 4.2 3.6 CHLORIDE mmol/L 91* 91* -- 90* CO2 mmol/L 37* 39* -- 40* BUN mg/dL 56* 60* -- 67* CREATININE mg/dL 1.49* 1.60* -- 1.70* CALCIUM mg/dL 9.5 9.6 -- 9.5 Radiology (See actual reports for details) Ciro Mcgee MD [facility] Pager:[phone] Office :[phone] 59:12 AM This progress note was completed using a voice journeyman lineman system. Every effort was made to ensure accuracy; however, inadvertent computerized journeyman lineman errors may be present * Manuel Gan MD - 05/17/2025 8:25 AM EST [facility] Infectious Diseases - Daily Progress Note Lexi Cm Admission date/time 05/08/2025 8:24 PM Today's Date and Time: 05/17/2025, 8:25 AM Impression : Siobhan glabrata, VRE UTI Acute on chronic HFpEF Positive urine culture with the ESBL Klebsiella in April Bilateral pleural effusions Persistent bilateral hydronephrosis due to retroperitoneal fibrosis status post bilateral ureteral stent exchange 04/12/2025 at outside hospital Status post left nephrostomy tube placement CKD stage 4 Coronary artery disease status post CABG Primary hypertension PAD DM 2 Recent left hip fracture status post surgical fixation 03/21/2025 Recommendations: Chest x-ray 05/15/2025 Mild interval decreased vascular congestion and edema. Procedures 05/16/2025: Left nephrostomy tube placement. Stent retrieval was not attempted. Cultures Blood cultures x2 05/14/2025 in process Urine culture 05/09/2025 Siobhan glabrata and VRE. Positive urine culture with ESBL Klebsiella in April scan in the media chart Antibiotics On micafungin, daptomycin and ertapenem No statins while on daptomycin Monitor CK level Likely need 2 weeks of antimicrobial Urology on consult. Follow up with primary urologist outpatient for stent retrieval. Follow-up WBC platelets creatinine LFT ID clinic in 2-3 weeks Supportive care FOLLOW UP/chief complaints UTI Interval History: The patient was seen resting in bed. She is afebrile. Denies nausea, vomiting, diarrhea, itch, rash. ROS: Negative except as above Social History: Social History Socioeconomic History Marital status: Spouse name: Not on file Number of children: Not on file Years of education: Not on file Highest education level: Not on file Occupational History Not on file Tobacco Use Smoking status: Never Smokeless tobacco: Never Substance and Sexual Activity Alcohol use: Never Drug use: Never Sexual activity: Not on file Other Topics Concern Not on file Social History Narrative Not on file Social Drivers of Health Financial Resource Strain: Low Risk (05/09/2025) Overall Financial Resource Strain (CARDIA) Difficulty of Paying Living Expenses: Not hard at all Food Insecurity: No Food Insecurity (05/09/2025) Hunger Screening Food Insecurity - Worry: Never True Food Insecurity - Inability: Never True Transportation Needs: No Transportation Needs (05/09/2025) PRAPARE - Transportation Lack of Transportation (Medical): No Lack of Transportation (Non-Medical): No Physical Activity: Not on file Stress: Not on file Social Connections: Not on file Interpersonal Safety: Not At Risk (05/09/2025) Humiliation, Afraid, Rape, and Kick questionnaire Fear of Current or Ex-Partner: No Emotionally Abused: No Physically Abused: No Sexually Abused: No Housing Instability: Low Risk (05/09/2025) Housing Instability Housing Instability: No Family History: Family History Family history unknown: Yes Physical Examination : Vitals: 05/17/25 0435 05/17/25 0500 05/17/25 0617 05/17/25 0750 BP: 143/49 156/57 168/56 Pulse: 68 68 68 73 Resp: 15 16 20 21 Temp: 36.8 ??C (98.2 ??F) TempSrc: Oral SpO2: 98% 99% 99% 100% Weight: 71.7 kg (158 lb 1.1 oz) Height: Temperature Range: Temp: 36.8 ??C (98.2 ??F) Temp Av.4 ??C (97.6 ??F) Min: 36 ??C (96.8 ??F) Max: 36.8 ??C (98.2 ??F) General Appearance: Awake, alert, and in no apparent distress Pulmonary/Chest: Clear to auscultation, without wheezes, rales, or rhonchi Cardiovascular: Regular rate and rhythm without murmurs, rubs, or gallops. Abdomen: soft, non-tender, without masses or organomegaly, normal bowel sounds Extremities: No cyanosis, clubbing, edema, or effusions. Skin:no unusual rash Left nephrostomy tube. Laboratory data: I have independently reviewed the following labs: Results from last 7 days Lab Units 05/17/25 0539 05/16/25 0637 05/15/25 0451 WBC x10E9/L 11.0 9.0 9.4 HEMOGLOBIN g/dL 9.7* 9.0* 8.9* HEMATOCRIT % 30.2* 27.9* 28.0* PLATELETS X10E9/L 192 181 187 Results from last 7 days Lab Units 05/17/25 0539 05/16/25 0637 05/15/25 1147 05/15/25 0451 POTASSIUM mmol/L 3.3* 3.5 4.2 3.6 CHLORIDE mmol/L 91* 91* -- 90* CO2 mmol/L 37* 39* -- 40* BUN mg/dL 56* 60* -- 67* CREATININE mg/dL 1.49* 1.60* -- 1.70* EGFR (CKD-EPI) NON-RACE DEPENDENT ml/min/1.73sq.m 36* 33* -- 30* CALCIUM mg/dL 9.5 9.6 -- 9.5 MAGNESIUM mg/dL 2.3 2.2 -- 2.2 Results from last 7 days Lab Units 05/15/25 0451 05/14/25 0519 05/13/25 0532 ALK PHOS U/L 54 55 53 ALT U/L 3 <3 <3 AST U/L 10 14 12 No results found for: CRP No results found for: SEDRATE Cultures: Microbiology Results Procedure Component Value Units Date/Time Blood culture #1 [[id number]] Collected: 05/14/25951 Specimen: Blood, Venous Updated: 05/16/25 100 CULTURE RESULTS NO GROWTH 2 DAYS Narrative: Suboptimal volume of blood collected, Results may be affected. Blood culture #2 [[id number]] Collected: 05/14/2552 Specimen: Blood, Venous Updated: 05/16/25 100 CULTURE RESULTS NO GROWTH 2 DAYS Narrative: Suboptimal volume of blood collected, Results may be affected. Imaging Studies: IR nephroureteral catheter placement left Result Date: 05/16/2025 1. Ultrasound guided puncture of left renal collecting system. 2. Left Antegrade nephrostogram. 3. Fluoroscopic guided placement of left 8 Scottish percutaneous nephrostomy catheter. CLINICAL INDICATION: Left hydronephrosis due to ureteral obstruction. CONSENT: The risks, benefits, and expectations of the procedure were eplained to the patient who signed a written consent. SEDATION: 50 mcg fentanylfor pain control. 10 mL 1% lidocaine. PROCEDURE: All elements of maximal sterile barrier techniquesfollowed including: cap and mask and sterile gown and sterile gloves and a large sterile sheet and hand hygiene and 2% chlorhexidine for cutaneous antiseptics; in addition, sterile ultrasound techniques including sterile gel and sterile probe per hospital policy followed. The patient was placed on the fluoroscopy table in the prone position, and both flanks were prepped and draped in a sterile fashion. Evaluation of the left kidney with ultrasound confirmed the presence of left hydronephrosis. Ultrasound revealed a good window for percutaneous access . Therefore, the skin was infiltrated with1% lidocaine, and a small skin abiel with an 11 blade was made. Using real-time ultrasound guidance A 21-gauge Chiba needle was advanced percutaneously into a posterior calyx of the left kidney duringdirect ultrasound needle visualization, and an ultrasound truck sales representative image was obtained and saved in PACS. An 018 wire was successfully introduced through the needle into the renal pelvis, then over the wire, the tract was dilated using an AccuStick set and the dilator was placed in the left renal pelvis. Contrast was injected and an antegrade nephrostogram was obtained. This confirmed left hydronephrosis due to ureteral obstruction. Therefore, over a Ashraf wire, the tract was further dilated, then an 8 Scottish percutaneous nephrostomy catheter was introduced over the wire and formed in the renal pelvis during real-time fluoroscopic guidance. A fluoroscopic spot image was obtained and saved in PACS. The catheter was sutured to the skin with 2.0 Prolene sutures and connected to dependent drainage Reference Air Kerma = 15.4 mGy Fluoroscopy time: 1.8 minutes Saved images: 1 Estimated blood loss: Minimal Cotton Converter: None. Complications: None. IMPRESSION: 1. Successful fluoroscopic guided placement of left 8 Scottish percutaneous nephrostomy catheter connected to dependent drainage. 2. Before any attempt at antegrade left stent removal, would recommend waiting until tract matures, patie nt's respiratory status improves, and no further concern for urinary infection. Finalized by Demetri Begum on 05/16/2025 3:47 PM X-ray chest 1 view Result Date: 05/15/2025 Single view chest History:evaluate if there is improvement in vascular congestion Difficulty breathing, shortness of breath Comparison: 05/12/2025 Findings: Single portable view of the chest. Mild interval decreased vascular congestion. Bilateral lower lung atelectasis and small bilateral pleural ef fusions. Stable cardiomediastinal silhouette. Impression: Mild interval decreased vascular congestion and edema. Finalized by David Connolly MD on 05/15/2025 9:38 AM Medications: bumetanide, 2 mg, oral, BID carvediloL, 3.125 mg, oral, BID DAPTOmycin (CUBICIN) IV, 6 mg/kg (Adjusted), intravenous, Q48H darbepoetin reginald (ARANESP) injection, 60 mcg, subcutaneous, Weekly diclofenac sodium, 2 g, topical, 4x Daily ertapenem, 500 mg, intravenous, Q24H gabapentin, 300 mg, oral, Nightly heparin (porcine), 5,000 Units, subcutaneous, Q12H REBA insulin glargine, 20 Units, subcutaneous, Nightly insulin lispro, 2-10 Units, subcutaneous, TID with meals insulin lispro, 2-8 Units, subcutaneous, Nightly micafungin, 100 mg, intravenous, Q24H polyethylene glycol, 17 g, oral, Daily senna, 8.6 mg, oral, Nightly sodium chloride, 3 mL, intravenous, Q12H REBA Thank you for allowing us to participate in the care of this patient. Please call with questions. SHAWANDA Anaya This note was completed using a voice journeyman lineman system. Every effort was made to ensure accuracy. However, inadvertent computerized journeyman lineman errors may be present. SHAWANDA Nayak 05/17/25 1004 IManuel MD, personally performed [id number] diagnostic evaluation on this patient I reviewed and performed all the nolan component of the patient visit I reviewed [place] history, exam and MDM - Manuel Gan MD 05/17/25 12:58 PM * Zay Ngo MD - 05/17/2025 7:41 AM EST Images from the original note were not included. Jr. Lemuel, J Carlos Landeros., David Forrest M.D., Phillip Eubanks M.D., Conchita Pollack M.D., Denae Castañeda M.D., Baudilio Pino M.D., Mikal Laws M.D., Pratik Ruiz M.D, Orestes Winter M.D. Hospital day: 9 Subjective: Patient was resting comfortably in bed. VSS and afebrile. Denies any new issues. Tovar catheter in place with clear yellow urine. UO last 24 hrs 2710. Nephrostomy tube with 560 cc. O leukocytosis andHgb stable. Creatinine 1.49 (1.60) Results from last 7 days Lab Units 05/17/25 0539 05/16/25 0637 05/15/25 0451 CREATININE mg/dL 1.49* 1.60* 1.70* WBC x10E9/L 11.0 9.0 9.4 HEMOGLOBIN g/dL 9.7* 9.0* 8.9* Weight: 71.7 kg (158 lb 1.1 oz) Patient Vitals for the past 24 hrs: BP Temp Temp src Pulse Resp SpO2 Weight 05/17/25 0617 156/57 -- -- 68 20 99 % -- 05/17/25 0500 143/49 -- -- 68 16 99 % 71.7 kg (158 lb 1.1 oz) 05/17/25 0435 -- -- -- 68 15 98 % -- 05/17/25 0346 154/46 36 ??C (96.8 ??F) Axillary 68 16 100 % -- 05/17/25 0200 -- -- -- 63 14 99 % -- 05/17/25 0113 -- -- -- 66 13 97 % -- 05/16/25 2348 153/56 36.3 ??C (97.3 ??F) Axillary 74 19 100 % -- 05/16/25 2338 -- -- -- 70 14 100 % -- 05/16/25 2113 -- -- -- 69 13 98 % -- 05/16/252013 147/53 36.6 ??C (97.9 ??F) Oral 77 17 100 % -- 05/16/25 1615 138/49 36.4 ??C (97.6 ??F) Oral 73 17 100 % -- 05/16/25 1530 -- -- -- 80 16 100 % -- 05/16/25 1517 151/55 -- -- 75 11 100 % -- 05/16/25 1510 156/59 -- -- 73 12 100 % -- 05/16/25 1505 175/59 -- -- 74 14 100 % -- 05/16/25 1500 162/61 -- -- 78 15 98 % -- 05/16/25 1455 147/66 -- -- 81 16 (!) 88 % -- 05/16/25 1445 147/44 -- -- 77 18 93 % -- 05/16/25 1420 -- -- -- 78 21 (!) 88 % -- 05/16/25 1415 -- -- -- 77 21 (!) 88 % -- 05/16/25 1410 -- -- -- 74 19 96 % -- 05/16/25 1405 -- -- -- 74 23 96 % -- 05/16/25 1400 -- -- -- 74 17 97 % -- 05/16/25 1355 -- -- -- 73 18 96 % -- 05/16/25 1334 -- -- -- 75 21 98 % -- 05/16/25 1325 -- -- -- 76 16 100 % -- 05/16/25 1200 -- -- -- 74 14 95 % -- 05/16/25 1108 135/45 36.6 ??C (97.9 ??F) Axillary 78 18 100 % -- 05/16/25 0914 -- -- -- 75 17 99 % -- 05/16/25 0825 -- -- -- 71 15 100 % -- 05/16/25 0820 159/46 -- -- 70 -- -- -- 05/16/25 0800 159/46 -- -- 62 13 100 % -- Intake/Output Summary (Last 24 hours) at 05/17/2025 0741 Last data filed at 05/17/2025 0401 Gross per 24 hour Intake 718.76 ml Output 2410 ml Net -1691.24 ml Lab Results Component Value Date SPECIFICGRA 1.013 05/09/2025 LEUKOCYTE Large (A) 05/09/2025 GLU 127 (H) 05/17/2025 UROBILINOGEN <1.1 eu/dL 05/09/2025 Additional Lab/culture results: Microbiology Results Procedure Component Value Units Date/Time Blood culture #1 [[id number]] Collected: 05/14/25 0952 Specimen: Blood, Venous Updated: 05/16/25 1001 CULTURE RESULTS NO GROWTH 2 DAYS Narrative: Suboptimal volume of blood collected, Results may be affected. Blood culture #2 [[id number]] Collected: 05/14/25 0952 Specimen: Blood, Venous Updated: 05/16/25 1001 CULTURE RESULTS NO GROWTH 2 DAYS Narrative: Suboptimal volume of blood collected, Results may be affected. Physical Exam: BP 156/57 Pulse 68 Temp 36 ??C (96.8 ??F) (Axillary) Resp 20 Ht 149.9 cm (4' 11 ) Wt 71.7kg (158 lb 1.1 oz) LMP (LMP Unknown) SpO2 99% BMI 31.93 kg/m?? General Appearance: awake, alert; no acute distress. Pulmonary: unlabored breathing, saturating >93% on room air. Cardiac: regular rate and rhythm, normotensive. Abdomen: soft, non-tender, non-distended Neuro: alert and oriented x3; no focal neurologic deficits. Skin: warm, dry : Tovar catheter in place, clear yellow urine. Left nephrostomy, slight bloody, with output Interval Imaging Findings: No results found. Impression: 79 y.o. female with past medical history of retroperitoneal fibrosis with bilateral stent exchangesmost recently March 2025 with inability to remove the left ureteral stent at that time secondary to knotting of the left ureteral stent, which was partially excised at the time with plans for subsequent retrieval, but the right exchange was exchange at that time and an additional left stent wasplaced, Now with migration of the additional left stent and obviously retention of the knotted stent, admitted [facility] 05/08/2025 with hypoxic respiratory failure, acute encephalopathy, history febrile UTI, and history CHF, diabetes, CABG, and bilateral pleural effusions with stage 4 chronic kidney disease creatinine 1.86 Urology was consulted due to left side hydronephrosis. She is status post left nephrostomy tube placement on 05/16/25 Plan: Urine culture on 05/09 positive for siobhan glabrata and vancomycin resistant enterococcus Continue IV antibiotics ; On daptomycin, ertapenem and micafungin. ID on board Interventional radiology was able to place a left side nephrostomy tube, but did not try to remove stents No acute urological surgical intervention indicated Rest of care per primary team Patient will require follow up with her already established urologist for stent retrieval Zay Holland MD Urology Resident, PGY-1 05/17/2025 Cosigned by David Forrest MD at 05/17/2025 4:34 PM EST Associated attestation - David Forrest MD - 05/17/2025 4:34 PM EST Interventional Radiology was only able to place the perc tube. They could not fish out the stents. All this discussed with the patient. She needs to follow up with Dr. Natarajan for further evaluation management. Tovar catheter and fluids per Nephrology. Urology will sign off. I have seen and evaluated the patient and have also reviewed the history above and agree. I have repeated the nolan portions of the physical exam and concur with the resident's/advanced practice provider findings. I have reviewed all laboratory findings and imaging reports/films. I agree with the plan as noted above. * Swapna Mcnair MD - 05/16/2025 1:27 PM EST Images from the original note were not included. 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 with bilateral ureteral stents, exchanged in March 2025, Urology are recommending left nephrostomy tube Acute on chronic hypoxemic respiratory failure, on nasal cannula 2 liters/minute Acute on chronic diastolic congestive heart failure with bilateral pleural effusion Metabolic alkalosis and respiratory acidosis Anemia, on Aranesp Siobhan and VRE UTI, on daptomycin, micafungin, ertapenem Interval history, uneventful night, patient denies chest pain, no SOB, , no abdominal pain, no nausea, no vomiting, Vital signs in last 24 hours: Vitals: 05/16/25 0825 05/16/25 0914 05/16/25 1108 05/16/25 1200 BP: 135/45 Pulse: 71 75 78 74 Resp: 15 17 18 14 Temp: 36.6 ??C (97.9 ??F) TempSrc: Axillary SpO2: 100% 99% 100% 95% Weight: Height: Intake/Output: Intake/Output Summary (Last 24 hours) at 05/16/2025 1327 Last data filed at 05/16/2025 1108 Gross per 24 hour Intake 154.48 ml Output 2375 ml Net -2220.52 ml Physical Exam: General appearance: alert in no acute distress. Head: Normocephalic, without obvious abnormality, atraumatic Eyes: Conjunctivae unremarkable, pupils reactive Neck: No JVD, no carotid bruit, neck supple, trachea midline cardiovascular: normal S1-S2, No gallops. Respiratory: Decreased breathing sounds at the bases Gastrointestinal: no tenderness, no guarding, no hepatosplenomegaly could be appreciated. Muscloskeletal: ++ LE edema, no active arthritis, normal range of movement Neurology: Moves all extremities, alert oriented Skin: no rash, no petechia Psychiatric, no anxiety, no suicidal ideas Lymphatic: no lymphadenopathy, no lymphedema Inpatient Meds: bumetanide, 2 mg, oral, BID carvediloL, 3.125 mg, oral, BID DAPTOmycin (CUBICIN) IV, 6 mg/kg (Adjusted), intravenous, Q48H darbepoetin reginald (ARANESP) injection, 60 mcg, subcutaneous, Weekly diclofenac sodium, 2 g, topical, 4x Daily ertapenem, 500 mg, intravenous, Q24H gabapentin, 300 mg, oral, Nightly heparin (porcine), 5,000 Units, subcutaneous, Q12H REBA insulin glargine, 20 Units, subcutaneous, Nightly insulin lispro, 2-10 Units, subcutaneous, TID with meals insulin lispro, 2-8 Units, subcutaneous, Nightly micafungin, 100 mg, intravenous, Q24H polyethylene glycol, 17 g, oral, Daily senna, 8.6 mg, oral, Nightly sodium chloride, 3 mL, intravenous, Q12H REBA dextrose 5 % in water, 100 mL/hr Nutrition: Dietary Orders (From admission, onward) Start Ordered 05/16/25 0000 Adult diet NPO; Except medications Diet effective now Question Answer Comment Diet Type: NPO NPO Except: Except medications 05/15/25 1211 Labs: Results from last 7 days Lab Units 05/16/25 0637 05/15/25 1147 05/15/25 0451 05/14/25 0519 05/13/25 0901 05/12/25 0554 05/11/25 0525 SODIUM mmol/L 139 -- 138 136 138 135 135 POTASSIUM mmol/L 3.5 4.2 3.6 4.2 4.2 4.4 3.9 CHLORIDE mmol/L 91* -- 90* 88* 89* 89* 90* CO2 mmol/L 39* -- 40* 37* 41* 36* 36* BUN mg/dL 60* -- 67* 72* 79* 73* 71* CREATININE mg/dL 1.60* -- 1.70* 1.69* 1.92* 1.87* 2.00* CALCIUM mg/dL 9.6 -- 9.5 9.3 9.8 9.2 8.9 MAGNESIUM mg/dL 2.2 -- 2.2 2.1 -- 2.1 2.0 PHOSPHORUS mg/dL 3.1 -- 3.7 3.7 -- -- -- Results from last 7 days Lab Units 05/16/25 0637 05/15/25 0451 05/14/25 0519 WBC x10E9/L 9.0 9.4 9.1 HEMOGLOBIN g/dL 9.0* 8.9* 9.4* HEMATOCRIT % 27.9* 28.0* 29.2* PLATELETS X10E9/L 181 187 192 Results from last 7 days Lab Units 05/16/25 0637 05/15/2545005/14/25 0519 MAGNESIUM mg/dL 2.2 2.2 2.1 Lab Results Component Value Date CALCIUM 9.6 05/16/2025 Lab Results Component Value Date IRON 55 05/09/2025 TIBC 237 (L) 05/09/2025 FERRITIN 133 05/09/2025 Problem list Chronic kidney disease stage 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 Renal serologies from 05/09/2025 showing negative MPO PR3 antibody negative VIVEK normal complements normal free light chain ratio, urinalysis showing 6 hyaline casts large leukocyte esterase 70 protein. Urine protein creatinine ratio of 2.1 g.SPEP Unremarkable. 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 Bilateral ureteral stents for bilateral hydronephrosis for which she gets stents exchange every 3 months Hypertension Diabetes mellitus type 2 Hyperlipidemia Neuropathy Gout Coronary artery disease status post CABG x3 in 2017 Abdominal aortic aneurysm repair Echocardiogram performed 05/10/2025 showing left ventricle size normal with increase hypertrophy noted. Systolic function decreased with EF of 40-45%. Right ventricle size normal systolic function low normal. [id number] mitral regurgitation [id number] tricuspid regurgitation elevated RVSP of 46 mmHg. SWAPNA MCNAIR MD [facility] ANY QUESTIONS FEEL FREE TO CALL: 1. OFFICE [phone] 2. ANSWERING SERVICE:[phone] YOU CAN CONTACT ME THROUGH [employer] SECURE CHAT DURING THE DAYTIME HOURS, IF NO RESPONSE AFTER 5 MINUTES CALL THE ANSWERING SERVICE This note was created with the assistance of a speech-recognition program. Although the intention is to generate a document that actually reflects the content of the visit, no guarantees can be provided that every mistake has been identified and corrected by editing. * Guy Drummond MD - 05/16/2025 11:00 AM EST Images from the original note were not included. [facility] Progress Note 05/16/2025 Patient Name: Lexi Cm : 1945 Hospital Day: 9 SUBJECTIVE Follow-up for shortness of breath. The patient seen and examined. NAEON. Patient feels like dyspnea and tremors have improved.. Deniesfevers, chills, nausea, emesis, dizziness, and lightheadedness. OBJECTIVE Vital Signs: Temp: [36.4 ??C (97.6 ??F)-37.2 ??C (98.9 ??F)] 36.4 ??C (97.6 ??F) Pulse: [58-81] 73 Resp: [11-23] 17 BP: (135-175)/(44-66) 138/49 FiO2 (%): [30 %] 30 % SpO2: [88 %-100 %] 100 % O2 Device: Nasal cannula O2 Flow Rate (L/min): [2 L/min-15 L/min] 4 L/min Weight: Body mass index is 33.04 kg/m??. Admission weight: 77.6 kg (171 lb 1.2 oz) Wt Readings from Last 3 Encounters: 05/16/25 74.2 kg (163 lb 9.3 oz) Input/Output: Intake/Output Summary (Last 24 hours) at 05/16/2025 1802 Last data filed at 05/16/2025 1108 Gross per 24 hour Intake -- Output 1825 ml Net -1825 ml Physical Exam: General appearance: Alert, cooperative, no distress. Eyes: L pupil appears to be extremely dilated and sluggish to react. L facial droop also noted Conjunctiva/corneas moist and clear, no pallor or icterus. ENT: Oropharynx clear with moist mucous membranes and no mucosal ulcerations. No thrush. External ears and nose are normal without lesions or scars. Respiratory: Normal work of breathing. No use of accessory muscles. Diffuse inspiratory coarse crackles. No wheezing or rhonchi. Cardiovascular: Regular rate and rhythm, S1, S2 normal, no murmur, rub or gallop. No LE edema. Abdomen: Soft, non-tender, no masses. No hernia. No hepatosplenomegaly. Skin: No rashes, lesions or ulcers. No induration or subcutaneous nodules. Psychiatric: Mood and affect appropriate, Appropriate judgment and insight. Alert and oriented. Labs/Imaging: Recent Results (from the past 24 hours) Bedside Glucose *Place/Obtain serum glucose if >500 per glucometer. Collection Time: 05/15/25 9:30 PM Result Value Ref Range Bedside Glucose (POC) 136 (H) 65 - 99 mg/dL CBC auto differential Collection Time: 05/16/25 6:37 AM Result Value Ref Range WBC 9.0 4 - 11 x10E9/L RBC Count 2.89 (L) 3.8 - 5.2 X10E12/L Hemoglobin 9.0 (L) 11.7 - 15.5 g/dL Hematocrit 27.9 (L) 35 - 47 % MCV 96 80 - 100 fL MCH 31.2 27 - 34 pg MCHC 32.4 32 - 36 g/dL RDW 18.8 (H) 11.5 - 15 % Platelet Count 181 150 - 450 X10E9/L MPV 9.5 7 - 12 fL Neutrophils % 65.8 % Lymphocytes % 21.3 % Monocytes % 8.3 % Eosinophils % 3.9 % Basophils % 0.7 % Neutrophils Absolute (A) 5.9 1.5 - 6.6 10*3/uL Lymphocytes Absolute 1.9 1.0 - 3.5 10*3/uL Monocytes Absolute 0.8 0.0 - 0.9 10*3/uL Eosinophils Absolute 0.3 0.0 - 0.4 10*3/uL Basophils Absolute 0.1 0.0 - 0.2 10*3/uL Differential Type AUTOMATED DIFFERENTIAL Basic Metabolic Panel Collection Time: 05/16/25 6:37 AM Result Value Ref Range SODIUM 139 134 - 146 mmol/L POTASSIUM 3.5 3.5 - 5.0 mmol/L CHLORIDE 91 (L) 98 - 109 mmol/L CARBON DIOXIDE 39 (H) 22 - 32 mmol/L ANION GAP 9 5 - 15 mmol/L BLOOD UREA NITROGEN 60 (H) 5 - 27 mg/dL CREATININE 1.60 (H) 0.40 - 1.00 mg/dL GLUCOSE 96 65 - 99 mg/dL CALCIUM 9.6 8.5 - 10.5 mg/dL EGFR Non-Race Dependent 33 (L) >=60 ml/min/1.73sq.m Magnesium Collection Time: 05/16/25 6:37 AM Result Value Ref Range MAGNESIUM 2.2 1.8 - 2.6 mg/dL Phosphorus Collection Time: 05/16/25 6:37 AM Result Value Ref Range PHOSPHORUS 3.1 2.4 - 4.9 mg/dL Bedside Glucose *Place/Obtain serum glucose if >500 per glucometer. Collection Time: 05/16/25 7:20 AM Result Value Ref Range Bedside Glucose (POC) 131 (H) 65 - 99 mg/dL Bedside Glucose *Place/Obtain serum glucose if >500 per glucometer. Collection Time: 05/16/25 11:07 AM Result Value Ref Range Bedside Glucose (POC) 119 (H) 65 - 99 mg/dL Bedside Glucose *Place/Obtain serum glucose if >500 per glucometer. Collection Time: 05/16/25 4:14 PM Result Value Ref Range Bedside Glucose (POC) 97 65 - 99 mg/dL Microbiology Results Procedure Component Value Units Date/Time Blood culture #1 [[id number]] Collected: 05/14/25951 Specimen: Blood, Venous Updated: 05/16/25 1001 CULTURE RESULTS NO GROWTH 2 DAYS Narrative: Suboptimal volume of blood collected, Results may be affected. Blood culture #2 [[id number]] Collected: 05/14/2552 Specimen: Blood, Venous Updated: 05/16/25 1001 CULTURE RESULTS NO GROWTH 2 DAYS Narrative: Suboptimal volume of blood collected, Results may be affected. Urine Culture Urine, Indwelling Catheter [[id number]] (Abnormal) (Susceptibility) Collected: 05/09/25 2314 Specimen: Urine, Indwelling Catheter Updated: 05/15/25 1305 CULTURE RESULTS >100,000 CFU/mL Siobhan glabrata 10,000-50,000 CFU/mL Vancomycin resistant Enterococcus faecium Narrative: Urine received without preservative - delays in transport may affect results. Interpret with caution and clinical correlation is recommended. Susceptibility Vancomycin resistant Enterococcus faecium Method Not Specified Ampicillin >=32.0 Resistant Daptomycin Susceptible Levofloxacin >=8.0 Resistant Linezolid 2.0 Susceptible Nitrofurantoin 64 Intermediate Vancomycin >=32.0 Resistant IR nephroureteral catheter placement left Result Date: 05/16/2025 1. Ultrasound guided puncture of left renal collecting system. 2. Left Antegrade nephrostogram. 3. Fluoroscopic guided placement of left 8 Scottish percutaneous nephrostomy catheter. CLINICAL INDICATION: Left hydronephrosis due to ureteral obstruction. CONSENT: The risks, benefits, and expectations of the procedure were eplained to the patient who signed a written consent. SEDATION: 50 mcg fentanylfor pain control. 10 mL 1% lidocaine. PROCEDURE: All elements of maximal sterile barrier techniquesfollowed including: cap and mask and sterile gown and sterile gloves and a large sterile sheet and hand hygiene and 2% chlorhexidine for cutaneous antiseptics; in addition, sterile ultrasound techniques including sterile gel and sterile probe per hospital policy followed. The patient was placed on the fluoroscopy table in the prone position, and both flanks were prepped and draped in a sterile fashion. Evaluation of the left kidney with ultrasound confirmed the presence of left hydronephrosis. Ultrasound revealed a good window for percutaneous access . Therefore, the skin was infiltrated with1% lidocaine, and a small skin abiel with an 11 blade was made. Using real-time ultrasound guidance A 21-gauge Chiba needle was advanced percutaneously into a posterior calyx of the left kidney duringdirect ultrasound needle visualization, and an ultrasound truck sales representative image was obtained and saved in PACS. An 018 wire was successfully introduced through the needle into the renal pelvis, then over the wire, the tract was dilated using an AccuStick set and the dilator was placed in the left renal pelvis. Contrast was injected and an antegrade nephrostogram was obtained. This confirmed left hydronephrosis due to ureteral obstruction. Therefore, over a Ashraf wire, the tract was further dilated, then an 8 Scottish percutaneous nephrostomy catheter was introduced over the wire and formed in the renal pelvis during real-time fluoroscopic guidance. A fluoroscopic spot image was obtained and saved in PACS. The catheter was sutured to the skin with 2.0 Prolene sutures and connected to dependent drainage Reference Air Kerma = 15.4 mGy Fluoroscopy time: 1.8 minutes Saved images: 1 Estimated blood loss: Minimal Cotton Converter: None. Complications: None. IMPRESSION: 1. Successful fluoroscopic guided placement of left 8 Scottish percutaneous nephrostomy catheter connected to dependent drainage. 2. Before any attempt at antegrade left stent removal, would recommend waiting until tract matures, patie nt's respiratory status improves, and no further concern for urinary infection. Finalized by Demetri Begum on 05/16/2025 3:47 PM All available laboratory, imaging, and microbiology data has been personally reviewed in detail, and accessible in full per EMR. Medications: bumetanide, 2 mg, oral, BID carvediloL, 3.125 mg, oral, BID DAPTOmycin (CUBICIN) IV, 6 mg/kg (Adjusted), intravenous, Q48H darbepoetin reginald (ARANESP) injection, 60 mcg, subcutaneous, Weekly diclofenac sodium, 2 g, topical, 4x Daily ertapenem, 500 mg, intravenous, Q24H gabapentin, 300 mg, oral, Nightly heparin (porcine), 5,000 Units, subcutaneous, Q12H REBA insulin glargine, 20 Units, subcutaneous, Nightly insulin lispro, 2-10 Units, subcutaneous, TID with meals insulin lispro, 2-8 Units, subcutaneous, Nightly micafungin, 100 mg, intravenous, Q24H polyethylene glycol, 17 g, oral, Daily senna, 8.6 mg, oral, Nightly sodium chloride, 3 mL, intravenous, Q12H REBA Infusion: dextrose 5 % in water, 100 mL/hr PRN medications: acetaminophen bisacodyL calcium gluconate calcium gluconate calcium gluconate dextrose dextrose 5 % in water dextrose 50 % in water (D50W) glucagon (human recombinant) guaiFENesin ipratropium-albuteroL magnesium sulfate magnesium sulfate midodrine ondansetron potassium chloride OR potassium chloride OR potassium chloride IV (Adult) sennosides-docusate sodium sodium phosphate IV OR sodium phosphate IV - central line OR sod phos di, mono-K phos mono sodium chloride sodium chloride ASSESSMENT and plan: Active Hospital Problems Diagnosis Date Noted Respiratory failure ([facility] [place]) 05/08/2025 Acute exacerbation of CHF (congestive heart failure) ([facility] [place]) 05/08/2025 Resolved Problems No resolved problems to display. - Acute hypoxic hypercapnic respiratory failure requiring NIPPV- now on 2L O2 NC: - LLL community acquired pneumonia/ Aspiration pneumonia: - Concern for obesity hypoventilation syndrome - Acute on chronic HFpEF (TTE EF 55% (05/02/25): - B/l Pleural effusions: - BNP at OSH was 11,105. - On 2L NC and BiPAP at night - Finish IV Levofloxacin 05/09/25 - S/p IV bumex - Continue PO bumex. Strict I/O and daily weight. Monitor kidney function and electrolytes. Nephro following. -Pulm following and recommend need for BiPAP at night on discharge. 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 Plans for L percutaneous nephrostomy tube with IR and possible nephroureteral catheter placement and possible stent retrieval on 05/16/25 - ID following. Continue ertapenem, daptomycin, ad micafungin. -Dilated L pupil -L facial droop -Stroke alert called 05/13/25 -CT head 05/13/25 nonacute MRA head pending - if unable to get inpatient, per neurology, okay to follow-up on it outpatient -Neuro followed - CAD s/p CABG: - Primary HTN: - PAD: - Continue Coreg 3.125 mg p.o. b.i.d.. - Holding home ASA and plavix in the setting of IR procedure above and can restart as able post procedure - SUSAN on CKD IV, resolved - Hyponatremia, resolved - Hyperkalemia, resvoled - Nephrology following - DM2 - Hyperglycemia - A1c 6.3% - Continue sliding scale and dose reduced home lantus - Recent left hip fracture S/p surgical fixation 03/21/2025 PT/OT. DVT prophylaxis: SCDs. Heparin 5000 units SQ BID. Code Status: Full code. Disposition: [facility] Guy Drummond MD [facility] * Ciro Mcgee MD - 05/16/2025 9:21 AM EST Images from the original note were not included. [facility] Progress Note Patient - Lexi Cm Age - 79 y.o. - 1945 Date of Admission - 05/08/2025 8:24 PM ASSESSMENT 1. Acute hypoxic hypercapnic respiratory failure seems to be multifactorial in the setting of diastolic congestive heart failure with acute decompensation, pleural effusion, suspecting obesity hypoventilation syndrome and restrictive ventilatory defect clinically improved 2. Suspecting obesity hypoventilation syndrome 3. Possible restrictive ventilatory defect due to body habitus and muscle weakness 4. Hyper cannula acute on chronic seems to be multifactorial 5. Chronic kidney disease 6. Bilateral pleural effusion due to decompensated congestive heart failure PLAN Clinically improved Patient will benefit from noninvasive nocturnal mechanical ventilation Can be discharged to rehab on BiPAP PFTs and sleep study as outpatient Wean oxygen down as tolerated. Goal to keep saturation above 90% Out of bed to chair Physical therapy DC planning Discussed with the patient and at length Follow-up with pulmonary as outpatient SUBJECTIVE Overnight events reviewed Feeling better. Denied any significant shortness of breath VITALS BP 159/46 Pulse 75 Temp 36.8 ??C (98.3 ??F) Resp 17 Ht 149.9 cm (4' 11 ) Wt 74.2 kg (163 lb 9.3 oz) LMP (LMP Unknown) SpO2 99% BMI 33.04 kg/m?? Exam Physical Exam Awake alert Comfortable no distress No tachypnea or tachycardic Heart rate is normal Good air entry bilateral No significant wheezing or crackles No respiratory distress Meds Medications Reviewed. Lab Results LABs: Results from last 7 days Lab Units 05/16/25 0637 05/15/25 0451 05/14/25 0519 WBC x10E9/L 9.0 9.4 9.1 HEMOGLOBIN g/dL 9.0* 8.9* 9.4* HEMATOCRIT % 27.9* 28.0* 29.2* PLATELETS X10E9/L 181 187 192 Results from last 7 days Lab Units 05/16/25 0637 05/15/25 1147 05/15/25 0451 05/14/25 0519 POTASSIUM mmol/L 3.5 4.2 3.6 4.2 CHLORIDE mmol/L 91* -- 90* 88* CO2 mmol/L 39* -- 40* 37* BUN mg/dL 60* -- 67* 72* CREATININE mg/dL 1.60* -- 1.70* 1.69* CALCIUM mg/dL 9.6 -- 9.5 9.3 Radiology (See actual reports for details) Ciro Mcgee MD [facility] Pager:[phone] Office :[phone] 59:21 AM This progress note was completed using a voice journeyman lineman system. Every effort was made to ensure accuracy; however, inadvertent computerized journeyman lineman errors may be present * Manuel Gan MD - 05/16/2025 8:11 AM EST Images from the original note were not included. [facility] Infectious Diseases - Daily Progress Note Lexi Cm Admission date/time 05/08/2025 8:24 PM Today's Date and Time: 05/16/2025, 8:12 AM Impression : Siobhan glabrata, VRE UTI OHS Acute on chronic HFpEF Bilateral pleural effusions Persistent bilateral hydronephrosis due to retroperitoneal fibrosis status post bilateral ureteral stent exchange 04/12/2025 at outside hospital CKD stage 4 Coronary artery disease status post CABG Primary hypertension PAD DM 2 Recent left hip fracture status post surgical fixation 03/21/2025 Recommendations: Chest x-ray 05/15/2025 Mild interval decreased vascular congestion and edema. Cultures Blood cultures x2 05/14/2025 in process Urine culture 05/09/2025 Siobhan glabrata and VRE. Antibiotics on micafungin, daptomycin and ertapenem No statins while on daptomycin Monitor CK level Urology consulted. Planning for nephrostomy tube placement. Follow-up WBC platelets creatinine LFT ID clinic in 2-3 weeks Supportive care FOLLOW UP/chief complaints UTI Interval History: The patient was seen resting in bed. She is afebrile. Denies nausea, vomiting, diarrhea, itch, rash. updated at the bedside. ROS: Negative except as above Social History: Social History Socioeconomic History Marital status: Spouse name: Not on file Number of children: Not on file Years of education: Not on file Highest education level: Not on file Occupational History Not on file Tobacco Use Smoking status: Never Smokeless tobacco: Never Substance and Sexual Activity Alcohol use: Never Drug use: Never Sexual activity: Not on file Other Topics Concern Not on file Social History Narrative Not on file Social Drivers of Health Financial Resource Strain: Low Risk (05/09/2025) Overall Financial Resource Strain (CARDIA) Difficulty of Paying Living Expenses: Not hard at all Food Insecurity: No Food Insecurity (05/09/2025) Hunger Screening Food Insecurity - Worry: Never True Food Insecurity - Inability: Never True Transportation Needs: No Transportation Needs (05/09/2025) PRAPARE - Transportation Lack of Transportation (Medical): No Lack of Transportation (Non-Medical): No Physical Activity: Not on file Stress: Not on file Social Connections: Not on file Interpersonal Safety: Not At Risk (05/09/2025) Humiliation, Afraid, Rape, and Kick questionnaire Fear of Current or Ex-Partner: No Emotionally Abused: No Physically Abused: No Sexually Abused: No Housing Instability: Low Risk (05/09/2025) Housing Instability Housing Instability: No Family History: Family History Family history unknown: Yes Physical Examination : Vitals: 05/16/25 0400 05/16/25 0405 05/16/25 0600 05/16/25 0709 BP: 143/44 157/55 145/46 Pulse: 62 62 60 58 Resp: 12 15 13 12 Temp: 37 ??C (98.6 ??F) 36.8 ??C (98.3 ??F) TempSrc: Axillary SpO2: 98% 97% 99% 100% Weight: 74.2 kg (163 lb 9.3 oz) Height: Temperature Range: Temp: 36.8 ??C (98.3 ??F) Temp Av.8 ??C (98.2 ??F) Min: 36.5 ??C (97.7 ??F)Max: 37.2 ??C (98.9 ??F) General Appearance: Awake, alert, and in no apparent distress Pulmonary/Chest: Clear to auscultation, without wheezes, rales, or rhonchi Cardiovascular: Regular rate and rhythm without murmurs, rubs, or gallops. Abdomen: soft, non-tender, without masses or organomegaly, normal bowel sounds Extremities: No cyanosis, clubbing, edema, or effusions. Skin:no unusual rash Laboratory data: I have independently reviewed the following labs: Results from last 7 days Lab Units 05/16/25 0637 05/15/25 0451 05/14/25 0519 WBC x10E9/L 9.0 9.4 9.1 HEMOGLOBIN g/dL 9.0* 8.9* 9.4* HEMATOCRIT % 27.9* 28.0* 29.2* PLATELETS X10E9/L 181 187 192 Results from last 7 days Lab Units 05/16/25 0637 05/15/25 1147 05/15/25 0451 05/14/25 0519 POTASSIUM mmol/L 3.5 4.2 3.6 4.2 CHLORIDE mmol/L 91* -- 90* 88* CO2 mmol/L 39* -- 40* 37* BUN mg/dL 60* -- 67* 72* CREATININE mg/dL 1.60* -- 1.70* 1.69* EGFR (CKD-EPI) NON-RACE DEPENDENT ml/min/1.73sq.m 33* -- 30* 31* CALCIUM mg/dL 9.6 -- 9.5 9.3 MAGNESIUM mg/dL 2.2 -- 2.2 2.1 Results from last 7 days Lab Units 05/15/25 0451 05/14/25 0519 05/13/25 0532 ALK PHOS U/L 54 55 53 ALT U/L 3 <3 <3 AST U/L 10 14 12 No results found for: CRP No results found for: SEDRATE Cultures: Microbiology Results Procedure Component Value Units Date/Time Blood culture #1 [[id number]] Collected: 05/14/25951 Specimen: Blood, Venous Updated: 05/15/252200 CULTURE RESULTS NO GROWTH AT 36 HOURS Narrative: Suboptimal volume of blood collected, Results may be affected. Blood culture #2 [[id number]] Collected: 05/14/25951 Specimen: Blood, Venous Updated: 05/15/252200 CULTURE RESULTS NO GROWTH AT 36 HOURS Narrative: Suboptimal volume of blood collected, Results may be affected. Urine Culture Urine, Indwelling Catheter [[id number]] (Abnormal) (Susceptibility) Collected: 05/09/25 2314 Specimen: Urine, Indwelling Catheter Updated: 05/15/25 1305 CULTURE RESULTS >100,000 CFU/mL Siobhan glabrata 10,000-50,000 CFU/mL Vancomycin resistant Enterococcus faecium Narrative: Urine received without preservative - delays in transport may affect results. Interpret with caution and clinical correlation is recommended. Susceptibility Vancomycin resistant Enterococcus faecium Method Not Specified Ampicillin >=32.0 Resistant Daptomycin Susceptible Levofloxacin >=8.0 Resistant Linezolid 2.0 Susceptible Nitrofurantoin 64 Intermediate Vancomycin >=32.0 Resistant Imaging Studies: X-ray chest 1 view Result Date: 05/15/2025 Single view chest History:evaluate if there is improvement in vascular congestion Difficulty breathing, shortness of breath Comparison: 05/12/2025 Findings: Single portable view of the chest. Mild interval decreased vascular congestion. Bilateral lower lung atelectasis and small bilateral pleural ef fusions. Stable cardiomediastinal silhouette. Impression: Mild interval decreased vascular congestion and edema. Finalized by David Connolly MD on 05/15/2025 9:[address] brain without contrast Result Date: 05/13/2025 CT BRAIN WO CONT 05/13/2025 10:33 AM INDICATION: left pupil asymmetry, stroke alert, questionable facial droop COMPARISON: CT brain without contrast 05/02/2025 TECHNIQUE: Serial axial images were obtained on a multidetector CT through the head without the use of intravenous contrast, as per the standard departmental protocol. Multiplanar 2D MPR reformatted images were then generated. FINDINGS: Noacute intracranial hemorrhage, mass effect, shift of midline structures, or abnormal extra axial fluid collection. No evidence of acute large vessel territorial ischemia. Chronic microvascular ischemic changes. Mild to moderate overall brain volume loss. Partial empty sella. Intracranial vascular calcifications. Ventricular system size and morphology are normal, basal cisterns are patent. Bilateral pseudophakia, orbits are symmetric. No depressed or displaced calvarial fracture. Minimal mucosalthickening of the paranasal sinuses. Mastoid air cells are well-aerated. Asymmetric degenerative changes of the right temporomandibular joint. Presumed cerumen within the bilateral external auditory canals. Multiple deep dental caries and periapical lucencies. IMPRESSION: * No acute intracranial findings, by CT. If there is concern for acute infarct, MRI can be considered. * Partially visualized nodules within the bilateral superficial parotid lobes measuring up to 0.9 cm in short axis. These may represent enlarged lymph nodes or primary salivary gland tumor, consider follow-up neck cross-sectional imaging or tissue sampling for definitive diagnosis. * Multiple deep dental caries and periapical lucencies. Approved by Resident: Jackson Ritter MD on 05/13/2025 10:49 AM ITomer MD have personally reviewed the image(s) and agree with and/or edited the report Finalized by Tomer Daily MD on 05/13/2025 11:06 AM Medications: bumetanide, 2 mg, oral, BID carvediloL, 3.125 mg, oral, BID DAPTOmycin (CUBICIN) IV, 6 mg/kg (Adjusted), intravenous, Q48H darbepoetin reginald (ARANESP) injection, 60 mcg, subcutaneous, Weekly diclofenac sodium, 2 g, topical, 4x Daily ertapenem, 500 mg, intravenous, Q24H gabapentin, 300 mg, oral, Nightly heparin (porcine), 5,000 Units, subcutaneous, Q12H REBA insulin glargine, 20 Units, subcutaneous, Nightly insulin lispro, 2-10 Units, subcutaneous, TID with meals insulin lispro, 2-8 Units, subcutaneous, Nightly micafungin, 100 mg, intravenous, Q24H polyethylene glycol, 17 g, oral, Daily senna, 8.6 mg, oral, Nightly sodium chloride, 3 mL, intravenous, Q12H REBA Thank you for allowing us to participate in the care of this patient. Please call with questions. SHAWANDA Anaya This note was completed using a voice journeyman lineman system. Every effort was made to ensure accuracy. However, inadvertent computerized journeyman lineman errors may be present. SHAWANDA Nayak 05/16/25 0953 I, Manuel Gan MD, personally performed [id number] diagnostic evaluation on this patient I reviewed and performed all the nolan component of the patient visit I reviewed [place] history, exam and MDM - Maneul Gan MD 05/16/25 12:08 PM * Zay Ngo MD - 05/16/2025 7:05 AM EST Images from the original note were not included. Jr. Hdez Gregor, M.D., David Forrest M.D., Phillip Eubanks M.D., Conchita Pollack M.D., Denae Castañeda M.D., Baudilio Pino M.D., Mikal Laws M.D., Joseph, Pratik, Maggy Whitman Humphrey, M.D. Hospital day: 8 Subjective: Patient was resting comfortably in bed. VSS and afebrile. Denies any new issues. Tovar catheter in place with clear yellow urine. UO last 24 hrs 2100. No new labs today at this time. Results from last 7 days Lab Units 05/15/25 0451 05/14/25 0519 05/13/25 0901 CREATININE mg/dL 1.70* 1.69* 1.92* WBC x10E9/L 9.4 9.1 8.3 HEMOGLOBIN g/dL 8.9* 9.4* 9.5* Weight: 74.2 kg (163 lb 9.3 oz) Patient Vitals for the past 24 hrs: BP Temp Temp src Pulse Resp SpO2 Weight 05/16/25 0600 157/55 -- -- 60 13 99 % 74.2 kg (163 lb 9.3 oz) 05/16/25 0405 -- -- -- 62 15 97 % -- 05/16/25 0400 143/44 37 ??C (98.6 ??F) Axillary 62 12 98 % -- 05/15/25 2347 -- -- -- 65 14 98 % -- 05/15/25 2318 150/51 36.5 ??C (97.7 ??F) Axillary 67 17 100 % -- 05/15/25 1932 144/48 37.2 ??C (98.9 ??F) Axillary 64 14 98 % -- 05/15/25 1800 151/46 -- -- 66 15 99 % -- 05/15/25 1700 -- -- -- 75 18 100 % -- 05/15/25 1620 -- 36.6 ??C (97.9 ??F) Oral 70 19 100 % -- 05/15/25 1607 -- -- -- 65 13 100 % -- 05/15/25 1600 161/55 -- -- 64 14 99 % -- 05/15/25 1500 156/58 -- -- 64 12 99 % -- 05/15/25 1400 143/47 -- -- 64 13 99 % -- 05/15/25 1215 133/53 36.6 ??C (97.8 ??F) Oral 79 19 100 % -- 05/15/25 1214 -- -- -- 78 13 99 % -- 05/15/25 1100 127/63 -- -- 74 15 98 % -- 05/15/25 1000 140/56 -- -- 72 13 98 % -- 05/15/25 0800 143/73 -- -- 73 14 100 % -- 05/15/25 0755 -- 37.2 ??C (98.9 ??F) Axillary 74 16 100 % -- Intake/Output Summary (Last 24 hours) at 05/16/2025 0706 Last data filed at 05/16/2025 0400 Gross per 24 hour Intake 634.48 ml Output 2100 ml Net -1465.52 ml Lab Results Component Value Date SPECIFICGRA 1.013 05/09/2025 LEUKOCYTE Large (A) 05/09/2025 GLU 136 (H) 05/15/2025 UROBILINOGEN <1.1 eu/dL 05/09/2025 Additional Lab/culture results: Microbiology Results Procedure Component Value Units Date/Time Blood culture #1 [[id number]] Collected: 05/14/25951 Specimen: Blood, Venous Updated: 05/15/252200 CULTURE RESULTS NO GROWTH AT 36 HOURS Narrative: Suboptimal volume of blood collected, Results may be affected. Blood culture #2 [[id number]] Collected: 05/14/25951 Specimen: Blood, Venous Updated: 05/15/252200 CULTURE RESULTS NO GROWTH AT 36 HOURS Narrative: Suboptimal volume of blood collected, Results may be affected. Urine Culture Urine, Indwelling Catheter [[id number]] (Abnormal) (Susceptibility) Collected: 05/09/25 2314 Specimen: Urine, Indwelling Catheter Updated: 05/15/25 1305 CULTURE RESULTS >100,000 CFU/mL Siobhan glabrata 10,000-50,000 CFU/mL Vancomycin resistant Enterococcus faecium Narrative: Urine received without preservative - delays in transport may affect results. Interpret with caution and clinical correlation is recommended. Susceptibility Vancomycin resistant Enterococcus faecium Method Not Specified Ampicillin >=32.0 Resistant Daptomycin Susceptible Levofloxacin >=8.0 Resistant Linezolid 2.0 Susceptible Nitrofurantoin 64 Intermediate Vancomycin >=32.0 Resistant Physical Exam: BP 157/55 Pulse 60 Temp 37 ??C (98.6 ??F) (Axillary) Resp 13 Ht 149.9 cm (4' 11 ) Wt 74.2kg (163 lb 9.3 oz) LMP (LMP Unknown) SpO2 99% BMI 33.04 kg/m?? General Appearance: awake, alert; no acute distress. Pulmonary: unlabored breathing, saturating >93% on room air. Cardiac: regular rate and rhythm, normotensive. Abdomen: soft, non-tender, non-distended Neuro: alert and oriented x3; no focal neurologic deficits. Skin: warm, dry : Tovar catheter in place, clear yellow urine Interval Imaging Findings: No results found. Impression: 79 y.o. female with past medical history of retroperitoneal fibrosis with bilateral stent exchangesmost recently March 2025 with inability to remove the left ureteral stent at that time secondary to knotting of the left ureteral stent, which was partially excised at the time with plans for subsequent retrieval, but the right exchange was exchange at that time and an additional left stent wasplaced, Now with migration of the additional left stent and obviously retention of the knotted stent, admitted [facility] 05/08/2025 with hypoxic respiratory failure, acute encephalopathy, history febrile UTI, and history CHF, diabetes, CABG, and bilateral pleural effusions with stage 4 chronic kidney disease creatinine 1.86 Urology was consulted due to left side hydronephrosis Plan: Urine culture on 05/09 positive for siobhan glabrata and vancomycin resistant enterococcus Continue IV antibiotics ; On daptomycin, ertapenem and micafungin. ID on board Patient has been off plavix for 5 days. Recommend interventional radiology consult for left sided nephrostomy tube. If possible attempt to remove the stents in anterograde fashion No acute urological surgical intervention indicated Rest of care per primary team Zay Holland MD Urology Resident, PGY-1 05/16/2025 Cosigned by David Forrest MD at 05/16/2025 2:38 PM EST Associated attestation - David Forrest MD - 05/16/2025 2:[address] Hdez had communicated with Dr. Natarajan. The plan was for percutaneous nephrostomy tube. Given the potential knotting of her stent-- if Interventional Radiology could fish out the stents in antegrade fashion that would be fine---otherwise percutaneous nephrostomy tube to be placed with the patient to return to Dr. Natarajan. All this discussed with the patient as well as her family. I have seen and evaluated the patient and have also reviewed the history above and agree. I have repeated the nolan portions of the physical exam and concur with the resident's/advanced practice provider findings. I have reviewed all laboratory findings and imaging reports/films. I agree with the plan as noted above. * Guy Drummond MD - 05/15/2025 7:30 PM EST Images from the original note were not included. [facility] Progress Note 05/15/2025 Patient Name: Lexi Cm : 1945 Hospital Day: 8 SUBJECTIVE Follow-up for shortness of breath. The patient seen and examined. NAEON. Patient feels like dyspnea is improving but still persistent.Endorses tremors continuously. Denies fevers, chills, nausea, emesis, dizziness, and lightheadedness. OBJECTIVE Vital Signs: Temp: [36.6 ??C (97.8 ??F)-37.3 ??C (99.2 ??F)] 36.6 ??C (97.9 ??F) Pulse: [61-79] 66 Resp: [12-19] 15 BP: (119-161)/(42-80) 151/46 FiO2 (%): [30 %] 30 % SpO2: [97 %-100 %] 99 % O2 Device: Non-invasive mask (BiPap/CPAP) O2 Flow Rate (L/min): [2 L/min] 2 L/min Weight: Body mass index is 33.8 kg/m??. Admission weight: 77.6 kg (171 lb 1.2 oz) Wt Readings from Last 3 Encounters: 05/15/25 75.9 kg (167 lb 5.3 oz) Input/Output: Intake/Output Summary (Last 24 hours) at 05/15/2025 1930 Last data filed at 05/15/2025 1800 Gross per 24 hour Intake 634.48 ml Output 2150 ml Net -1515.52 ml Physical Exam: General appearance: Alert, cooperative, no distress. Eyes: L pupil appears to be extremely dilated and sluggish to react. L facial droop also noted Conjunctiva/corneas moist and clear, no pallor or icterus. ENT: Oropharynx clear with moist mucous membranes and no mucosal ulcerations. No thrush. External ears and nose are normal without lesions or scars. Respiratory: Normal work of breathing. No use of accessory muscles. Diffuse inspiratory coarse crackles. No wheezing or rhonchi. Cardiovascular: Regular rate and rhythm, S1, S2 normal, no murmur, rub or gallop. No LE edema. Abdomen: Soft, non-tender, no masses. No hernia. No hepatosplenomegaly. Skin: No rashes, lesions or ulcers. No induration or subcutaneous nodules. Psychiatric: Mood and affect appropriate, Appropriate judgment and insight. Alert and oriented. Labs/Imaging: Recent Results (from the past 24 hours) Bedside Glucose *Place/Obtain serum glucose if >500 per glucometer. Collection Time: 05/14/25 9:27 PM Result Value Ref Range Bedside Glucose (POC) 212 (H) 65 - 99 mg/dL Liver panel Collection Time: 05/15/25 4:51 AM Result Value Ref Range TOTAL PROTEIN 6.4 6.0 - 8.0 g/dL ALBUMIN 3.3 3.2 - 5.3 g/dL BILIRUBIN,TOTAL 0.5 0.3 - 1.2 mg/dL ALKALINE PHOSPHATASE 54 39 - 130 U/L AST 10 <=41 U/L ALT 3 <=31 U/L BILIRUBIN,DIRECT 0.1 <=0.4 mg/dL Basic Metabolic Panel Collection Time: 05/15/25 4:51 AM Result Value Ref Range SODIUM 138 134 - 146 mmol/L POTASSIUM 3.6 3.5 - 5.0 mmol/L CHLORIDE 90 (L) 98 - 109 mmol/L CARBON DIOXIDE 40 (H) 22 - 32 mmol/L ANION GAP 8 5 - 15 mmol/L BLOOD UREA NITROGEN 67 (H) 5 - 27 mg/dL CREATININE 1.70 (H) 0.40 - 1.00 mg/dL GLUCOSE 172 (H) 65 - 99 mg/dL CALCIUM 9.5 8.5 - 10.5 mg/dL EGFR Non-Race Dependent 30 (L) >=60 ml/min/1.73sq.m CBC auto differential Collection Time: 05/15/25 4:51 AM Result Value Ref Range WBC 9.4 4 - 11 x10E9/L RBC Count 2.87 (L) 3.8 - 5.2 X10E12/L Hemoglobin 8.9 (L) 11.7 - 15.5 g/dL Hematocrit 28.0 (L) 35 - 47 % MCV 97 80 - 100 fL MCH 31.1 27 - 34 pg MCHC 31.9 (L) 32 - 36 g/dL RDW 18.3 (H) 11.5 - 15 % Platelet Count 187 150 - 450 X10E9/L MPV 9.7 7 - 12 fL Neutrophils % 65.5 % Lymphocytes % 22.3 % Monocytes % 7.7 % Eosinophils % 3.7 % Basophils % 0.8 % Neutrophils Absolute (A) 6.1 1.5 - 6.6 10*3/uL Lymphocytes Absolute 2.1 1.0 - 3.5 10*3/uL Monocytes Absolute 0.7 0.0 - 0.9 10*3/uL Eosinophils Absolute 0.4 0.0 - 0.4 10*3/uL Basophils Absolute 0.1 0.0 - 0.2 10*3/uL Differential Type AUTOMATED DIFFERENTIAL Magnesium Collection Time: 05/15/25 4:51 AM Result Value Ref Range MAGNESIUM 2.2 1.8 - 2.6 mg/dL Phosphorus Collection Time: 05/15/25 4:51 AM Result Value Ref Range PHOSPHORUS 3.7 2.4 - 4.9 mg/dL Bedside Glucose *Place/Obtain serum glucose if >500 per glucometer. Collection Time: 05/15/25 8:09 AM Result Value Ref Range Bedside Glucose (POC) 182 (H) 65 - 99 mg/dL Potassium Collection Time: 05/15/25 11:47 AM Result Value Ref Range POTASSIUM 4.2 3.5 - 5.0 mmol/L Protime & INR Collection Time: 05/15/25 11:47 AM Result Value Ref Range PROTIME 11.3 9.8 - 13.2 sec INR 1.0 0.9 - 1.2 Blood gas, venous Collection Time: 05/15/25 11:50 AM Result Value Ref Range Sample type VENOUS pH, Venous 7.319 (L) 7.320 - 7.420 pCO2, Venous 80.1 (H) 35.0 - 50.0 mmHg pO2, Venous 63 (H) 30 - 50 mmHg Base, Excess 12.0 (H) 0.0 - 2.0 mmol/L HCO3, Venous 41.2 (H) 20.0 - 24.0 mmol/L %O2 Saturation, Venous 88.0 % Marcos's test N/A SPO2 100 % Sample site N/A Insp. O2 conc. 28 % Source Of Oxygen NC Bedside Glucose *Place/Obtain serum glucose if >500 per glucometer. Collection Time: 05/15/25 12:24 PM Result Value Ref Range Bedside Glucose (POC) 213 (H) 65 - 99 mg/dL Bedside Glucose *Place/Obtain serum glucose if >500 per glucometer. Collection Time: 05/15/25 4:14 PM Result Value Ref Range Bedside Glucose (POC) 169 (H) 65 - 99 mg/dL Microbiology Results Procedure Component Value Units Date/Time Blood culture #1 [[id number]] Collected: 05/14/25951 Specimen: Blood, Venous Updated: 05/15/25 1001 CULTURE RESULTS NO GROWTH 1 DAY Narrative: Suboptimal volume of blood collected, Results may be affected. Blood culture #2 [[id number]] Collected: 05/14/25951 Specimen: Blood, Venous Updated: 05/15/25 1001 CULTURE RESULTS NO GROWTH 1 DAY Narrative: Suboptimal volume of blood collected, Results may be affected. Urine Culture Urine, Indwelling Catheter [[id number]] (Abnormal) (Susceptibility) Collected: 05/09/25 2319 Specimen: Urine, Indwelling Catheter Updated: 05/15/25 1305 CULTURE RESULTS >100,000 CFU/mL Siobhan glabrata 10,000-50,000 CFU/mL Vancomycin resistant Enterococcus faecium Narrative: Urine received without preservative - delays in transport may affect results. Interpret with caution and clinical correlation is recommended. Susceptibility Vancomycin resistant Enterococcus faecium Method Not Specified Ampicillin >=32.0 Resistant Daptomycin Susceptible Levofloxacin >=8.0 Resistant Linezolid 2.0 Susceptible Nitrofurantoin 64 Intermediate Vancomycin >=32.0 Resistant X-ray chest 1 view Result Date: 05/15/2025 Single view chest History:evaluate if there is improvement in vascular congestion Difficulty breathing, shortness of breath Comparison: 05/12/2025 Findings: Single portable view of the chest. Mild interval decreased vascular congestion. Bilateral lower lung atelectasis and small bilateral pleural ef fusions. Stable cardiomediastinal silhouette. Impression: Mild interval decreased vascular congestion and edema. Finalized by David Connolly MD on 05/15/2025 9:38 AM All available laboratory, imaging, and microbiology data has been personally reviewed in detail, and accessible in full per EMR. Medications: bumetanide, 2 mg, oral, BID carvediloL, 3.125 mg, oral, BID DAPTOmycin (CUBICIN) IV, 6 mg/kg (Adjusted), intravenous, Q48H darbepoetin reginald (ARANESP) injection, 60 mcg, subcutaneous, Weekly diclofenac sodium, 2 g, topical, 4x Daily ertapenem, 500 mg, intravenous, Q24H gabapentin, 300 mg, oral, Nightly heparin (porcine), 5,000 Units, subcutaneous, Q12H REBA insulin glargine, 20 Units, subcutaneous, Nightly insulin lispro, 2-10 Units, subcutaneous, TID with meals insulin lispro, 2-8 Units, subcutaneous, Nightly micafungin, 100 mg, intravenous, Q24H polyethylene glycol, 17 g, oral, Daily senna, 8.6 mg, oral, Nightly sodium chloride, 3 mL, intravenous, Q12H REBA Infusion: dextrose 5 % in water, 100 mL/hr PRN medications: acetaminophen bisacodyL calcium gluconate calcium gluconate calcium gluconate dextrose dextrose 5 % in water dextrose 50 % in water (D50W) glucagon (human recombinant) guaiFENesin ipratropium-albuteroL magnesium sulfate magnesium sulfate midodrine ondansetron potassium chloride OR potassium chloride OR potassium chloride IV (Adult) sennosides-docusate sodium sodium phosphate IV OR sodium phosphate IV - central line OR sod phos di, mono-K phos mono sodium chloride sodium chloride ASSESSMENT and plan: Active Hospital Problems Diagnosis Date Noted Respiratory failure ([facility] [place]) 05/08/2025 Acute exacerbation of CHF (congestive heart failure) ([facility] [place]) 05/08/2025 Resolved Problems No resolved problems to display. - Acute hypoxic hypercapnic respiratory failure requiring NIPPV- now on 3L O2 NC: - LLL community acquired pneumonia/ Aspiration pneumonia: - Concern for obesity hypoventilation syndrome - Acute on chronic HFpEF (TTE EF 55% (05/02/25): - B/l Pleural effusions: - BNP at OSH was 11,105. - On 3L NC and BiPAP at night - Finish IV Levofloxacin 05/09/25 - IV bumex transitioned to PO. Strict I/O and daily weight. Monitor kidney function and electrolytes. Nephro following. CXR ordered -Pulm following and recommend need for BiPAP at night. Patient will need PFTs outpatient - Acute encephalopathy- resolved: - Urine culture positive - persistent B/l hydronephrosis duet to retroperitoneal fibrosis s/p b/l ureteral stents exchange 04/12/25 at OSH: - Tovar catheter was placed at OSH 05/02/25 for strict I/O: - Last available urine cultures from OSH (04/28/25): ESBL Klebsiella - Urine cultures 05/09/25 with siobhan glabrata and enterococcus species - Blood cultures 05/14/25 NG - Urology following. Plans for L percutaneous nephrostomy tube with IR and possible nephroureteral catheter placement and possible stent retrieval on 05/16/25 - ID following. Continue ertapenem, daptomycin, ad micafungin. -Dilated L pupil -L facial droop -Stroke alert called 05/13/25 -CT head 05/13/25 nonacute MRA head pending -Neuro followed - CAD s/p CABG: - Primary HTN: - PAD: - Continue lipitor and Coreg 3.125 mg p.o. b.i.d.. - Holding home ASA and plavix in the setting of urologic procedure above - SUSAN on CKD IV, resolved - Hyponatremia, resolved - Hyperkalemia, resvoled - Nephrology following - DM2 - Hyperglycemia - A1c 6.3% - Continue sliding scale - Restart home lantus - Recent left hip fracture S/p surgical fixation 03/21/2025 PT/OT. DVT prophylaxis: SCDs. Heparin 5000 units SQ BID. Code Status: Full code. Disposition: [facility] Guy Drummond MD [facility] * Terri Josephs, ACADEMIC HOSPITALIST-LICENSING ANALYST - 05/15/2025 9:36 AM EST Images from the original note were not included. [facility] Progress Note Lexi Cm Admission date/time 05/08/2025 8:24 PM Today's Date and Time: 05/15/2025, 9:37 AM Impression : Siobhan glabrata, VRE UTI O[facility] Acute on chronic HFpEF Bilateral pleural effusions Persistent bilateral hydronephrosis due to retroperitoneal fibrosis status post bilateral ureteral stent exchange 04/12/2025 at outside hospital CKD stage 4 Coronary artery disease status post CABG Primary hypertension PAD DM 2 Recent left hip fracture status post surgical fixation 03/21/2025 Recommendations: Previous urine culture 04/29/[address] ES[address] CT abdomen 05/09/2025 Persistent bilateral hydronephrosis right greater than left Urology following - plans for L percutaneous nephrostomy tube and possible stent removal in IR tentatively 05/16 Urine culture 05/10/2025 with Siobhan glabrata, low count VRE Check blood cultures preliminary no growth x1 day Continue ertapenem, daptomycin, micafungin Follow WBC, creatinine, platelets, LFTs, CK total No statin while on dapto CK total 15 Discharge planning per primary team as based on patient clinical condition Supportive care FOLLOW UP/chief complaints UTI Interval History: Patient seen resting in bed. She is more alert today. Off BiPAP. Afebrile. No new skin rash. Remains on antibiotics. ROS: Negative except as above Review of Systems Social History: Social History Socioeconomic History Marital status: Spouse name: Not on file Number of children: Not on file Years of education: Not on file Highest education level: Not on file Occupational History Not on file Tobacco Use Smoking status: Never Smokeless tobacco: Never Substance and Sexual Activity Alcohol use: Never Drug use: Never Sexual activity: Not on file Other Topics Concern Not on file Social History Narrative Not on file Social Drivers of Health Financial Resource Strain: Low Risk (05/09/2025) Overall Financial Resource Strain (CARDIA) Difficulty of Paying Living Expenses: Not hard at all Food Insecurity: No Food Insecurity (05/09/2025) Hunger Screening Food Insecurity - Worry: Never True Food Insecurity - Inability: Never True Transportation Needs: No Transportation Needs (05/09/2025) PRAPARE - Transportation Lack of Transportation (Medical): No Lack of Transportation (Non-Medical): No Physical Activity: Not on file Stress: Not on file Social Connections: Not on file Interpersonal Safety: Not At Risk (05/09/2025) Humiliation, Afraid, Rape, and Kick questionnaire Fear of Current or Ex-Partner: No Emotionally Abused: No Physically Abused: No Sexually Abused: No Housing Instability: Low Risk (05/09/2025) Housing Instability Housing Instability: No Family History: Family History Family history unknown: Yes Physical Examination : Vitals: 05/15/25 0500 05/15/25 0700 05/15/25 0755 05/15/25 0800 BP: 152/80 141/57 143/73 Pulse: 71 75 74 73 Resp: 16 17 16 14 Temp: 37.2 ??C (98.9 ??F) TempSrc: Axillary SpO2: 100% 100% 100% 100% Weight: 75.9 kg (167 lb 5.3 oz) Height: Temperature Range: Temp: 37.2 ??C (98.9 ??F) Temp Av.9 ??C (98.5 ??F) Min: 36.6 ??C (97.9 ??F)Max: 37.3 ??C (99.2 ??F) Physical Exam CONSTITUTIONAL: awake, alert, no apparent distress, LUNGS: fair air entry bilaterally, no wheezing no rhonchi CARDIOVASCULAR: regular rate and rhythm,no murmur noted ABDOMEN: normal BS, soft, non-distended, non-tender, MUSCULOSKELETAL: BUE and BLE with no redness, warmth, or swelling NEUROLOGIC: Awake, alert & oriented Follow commands. Cranial nerves grossly intact SKIN: no rash Laboratory data: I have independently reviewed the following labs: Results from last 7 days Lab Units 05/15/25 0451 05/14/25 0519 05/13/25 0901 WBC x10E9/L 9.4 9.1 8.3 HEMOGLOBIN g/dL 8.9* 9.4* 9.5* HEMATOCRIT % 28.0* 29.2* 29.3* PLATELETS X10E9/L 187 192 177 Results from last 7 days Lab Units 05/15/2545005/14/2519 05/13/25 0901 05/12/25 0554 POTASSIUM mmol/L 3.6 4.2 4.2 4.4 CHLORIDE mmol/L 90* 88* 89* 89* CO2 mmol/L 40* 37* 41* 36* BUN mg/dL 67* 72* 79* 73* CREATININE mg/dL 1.70* 1.69* 1.92* 1.87* EGFR (CKD-EPI) NON-RACE DEPENDENT ml/min/1.73sq.m 30* 31* 26* 27* CALCIUM mg/dL 9.5 9.3 9.8 9.2 MAGNESIUM mg/dL 2.2 2.1 -- 2.1 Results from last 7 days Lab Units 05/15/2545005/14/2551805/13/25 0532 ALK PHOS U/L 54 55 53 ALT U/L 3 <3 <3 AST U/L 10 14 12 No results found for: CRP No results found for: SEDRATE Cultures: Microbiology Results Procedure Component Value Units Date/Time Blood culture #1 [[id number]] Collected: 05/14/25951 Specimen: Blood, Venous Updated: 05/14/252300 CULTURE RESULTS NO GROWTH <24 HRS Narrative: Suboptimal volume of blood collected, Results may be affected. Blood culture #2 [[id number]] Collected: 05/14/25951 Specimen: Blood, Venous Updated: 05/14/252300 CULTURE RESULTS NO GROWTH <24 HRS Narrative: Suboptimal volume of blood collected, Results may be affected. Urine Culture Urine, Indwelling Catheter [[id number]] (Abnormal) (Susceptibility) Collected: 05/09/252313 Specimen: Urine, Indwelling Catheter Updated: 05/14/25 1128 CULTURE RESULTS >100,000 CFU/mL Siobhan glabrata 10,000-50,000 CFU/mL Vancomycin resistant Enterococcus faecium Narrative: Urine received without preservative - delays in transport may affect results. Interpret with caution and clinical correlation is recommended. Susceptibility Vancomycin resistant Enterococcus faecium Method Not Specified Ampicillin >=32.0 Resistant Levofloxacin >=8.0 Resistant Linezolid 2.0 Susceptible Nitrofurantoin 64 Intermediate Vancomycin >=32.0 Resistant Imaging Studies: CT brain without contrast Result Date: 05/13/2025 CT BRAIN WO CONT 05/13/2025 10:33 AM INDICATION: left pupil asymmetry, stroke alert, questionable facial droop COMPARISON: CT brain without contrast 05/02/2025 TECHNIQUE: Serial axial images were obtained on a multidetector CT through the head without the use of intravenous contrast, as per the standard departmental protocol. Multiplanar 2D MPR reformatted images were then generated. FINDINGS: Noacute intracranial hemorrhage, mass effect, shift of midline structures, or abnormal extra axial fluid collection. No evidence of acute large vessel territorial ischemia. Chronic microvascular ischemic changes. Mild to moderate overall brain volume loss. Partial empty sella. Intracranial vascular calcifications. Ventricular system size and morphology are normal, basal cisterns are patent. Bilateral pseudophakia, orbits are symmetric. No depressed or displaced calvarial fracture. Minimal mucosalthickening of the paranasal sinuses. Mastoid air cells are well-aerated. Asymmetric degenerative changes of the right temporomandibular joint. Presumed cerumen within the bilateral external auditory canals. Multiple deep dental caries and periapical lucencies. IMPRESSION: * No acute intracranial findings, by CT. If there is concern for acute infarct, MRI can be considered. * Partially visualized nodules within the bilateral superficial parotid lobes measuring up to 0.9 cm in short axis. These may represent enlarged lymph nodes or primary salivary gland tumor, consider follow-up neck cross-sectional imaging or tissue sampling for definitive diagnosis. * Multiple deep dental caries and periapical lucencies. Approved by Resident: Jackson Ritter MD on 05/13/2025 10:49 AM ITomer MD have personally reviewed the image(s) and agree with and/or edited the report Finalized by Tomer Daily MD on 05/13/2025 11:06 AM X-ray chest 1 view Result Date: 05/12/2025 History: monitor if improvement in interstitial edema Exam/Technique: AP chest upright Comparison: 05/08/2025 Findings: Sternotomy wires. Congested lungs effusions. IMPRESSION: Likely overload state.Low lung volumes. Finalized by Hugo Aquino MD on 05/12/2025 12:59 PM Medications: bumetanide, 2 mg, oral, BID carvediloL, 3.125 mg, oral, BID DAPTOmycin (CUBICIN) IV, 6 mg/kg (Adjusted), intravenous, Q48H darbepoetin reginald (ARANESP) injection, 60 mcg, subcutaneous, Weekly diclofenac sodium, 2 g, topical, 4x Daily ertapenem, 500 mg, intravenous, Q24H gabapentin, 300 mg, oral, Nightly heparin (porcine), 5,000 Units, subcutaneous, Q12H REBA insulin glargine, 20 Units, subcutaneous, Nightly insulin lispro, 2-10 Units, subcutaneous, TID with meals insulin lispro, 2-8 Units, subcutaneous, Nightly micafungin, 100 mg, intravenous, Q24H polyethylene glycol, 17 g, oral, Daily senna, 8.6 mg, oral, Nightly sodium chloride, 3 mL, intravenous, Q12H REBA Thank you for allowing us to participate in the care of this patient. Please call with questions. Terri Ramos APRNLICENSING ANALYST [phone] This note was completed using a voice journeyman lineman system. Every effort was made to ensure accuracy. However, inadvertent computerized journeyman lineman errors may be present. SHAWANDA Kang 05/15/25 1402 * Mery Couch MD - 05/15/2025 9:00 AM EST Images from the original note were not included. [facility] Progress Note Patient - Lexi Cm Age - 79 y.o. - 1945 Date of Admission - 05/08/2025 8:24 PM Reason for Consultation: Respiratory failure ASSESSMENT Acute respiratory failure hypoxia and hypercapni on with oxygen without oxygen how much GI dust want to see what is was a secondary to acute diastolic heart failure. Obesity hypoventilation syndrome Restrictive lung disease secondary to chest wall weakness and body habitus Acute Diastolic congestive heart failure. Other lung etiologies need to be ruled out after adequate diuresis. CKD stage 4 Coronary artery disease status post CABG. Diabetes mellitus type 2. Bilateral pleural effusion Essential hypertension UTIs status post bilateral kidney stents PLAN Oxygen therapy to keep sat O2 above 90%. NIV as needed Arterial blood gas that was done on 3 L/min nasal cannula showed PaCO2 of 58 confirming chronic hypercapnia. The hypercapnia is secondary to obesity hypoventilation syndrome and unlikely to be related to ALEJANDRA.Patient may or may not have ALEJANDRA however it should not contribute to this degree of hypercapnia. She will benefit from BiPAP at night The patient requires positive ventilation at night due to the severity of the disease, weak breathing muscles and potential life-threatening condition including CO2 retention, the patient also requires ventilation to be used during the day as needed in addition to every night use age with face mask. Discussed ordering NIV at home. Patient is agreeable. Nocturnal pulse oximetry trend off BiPAP that was done on 05/11 and requirement of oxygen increasedup to 6 L per minute with saturation reached 70s then he was placed on BiPAP. She did not tolerate sleeping off BiPAP. Diuresis per Nephrology. Lower extremity ultrasound is negative for DVT. Finished Levaquin course Patient will need pulmonary function test as outpatient. She will need to be discharged to facility with BiPAP 27/12 with 2 LPM bled in at night until we areable to arrange for home BiPAP. Spirometry in a.m. to have FEV1/FVC ratio. Noted plan for nephrostomy tubes. Discussed plan of care with RN and social worker health services. SUBJECTIVE Patient was seen and examined. She had 2.3 L of urine output in the last 24 hours. Still tolerating NIV at night Down to 2 L/min nasal cannula She was sleepy yesterday evening and was placed on BiPAP until this morning. She is completely alert and oriented now. VITALS BP 143/73 Pulse 73 Temp 37.2 ??C (98.9 ??F) (Axillary) Resp 14 Ht 149.9 cm (4' 11 ) Wt 75.9 kg (167 lb 5.3 oz) LMP (LMP Unknown) SpO2 100% BMI 33.80 kg/m?? Last 3 Weight Readings 05/12/25 0606 05/13/25 0547 05/15/25 0500 Weight: 74.8 kg (164 lb 14.5 oz) 75.3 kg (166 lb 0.1 oz) 75.9 kg (167 lb 5.3 oz) Resp Readings from Last 3 Encounters: 05/15/25 14 PF Readings from Last 3 Encounters: No data found for PF @LASTSAO2(3)@ Exam Physical Exam Constitutional She is oriented to person, place, and time. She appears well- developed and well-nourished. No distress. Eyes: EOM are normal. Pupils are equal, round, and reactive to light. Pulmonary/Chest: Effort normal. She has rales. Abdominal: Bowel sounds are normal. Soft. Musculoskeletal: General: Edema present. Neurological She is alert and oriented to person, place, and time. Skin: Skin is warm and dry. Meds Medications Reviewed. Scheduled Meds: bumetanide, 2 mg, oral, BID carvediloL, 3.125 mg, oral, BID DAPTOmycin (CUBICIN) IV, 6 mg/kg (Adjusted), intravenous, Q48H darbepoetin reginald (ARANESP) injection, 60 mcg, subcutaneous, Weekly diclofenac sodium, 2 g, topical, 4x Daily ertapenem, 500 mg, intravenous, Q24H gabapentin, 300 mg, oral, Nightly heparin (porcine), 5,000 Units, subcutaneous, Q12H REBA insulin glargine, 20 Units, subcutaneous, Nightly insulin lispro, 2-10 Units, subcutaneous, TID with meals insulin lispro, 2-8 Units, subcutaneous, Nightly micafungin, 100 mg, intravenous, Q24H polyethylene glycol, 17 g, oral, Daily senna, 8.6 mg, oral, Nightly sodium chloride, 3 mL, intravenous, Q12H REBA Continuous Infusions: dextrose 5 % in water, 100 mL/hr PRN Meds: acetaminophen bisacodyL calcium gluconate calcium gluconate calcium gluconate dextrose dextrose 5 % in water dextrose 50 % in water (D50W) glucagon (human recombinant) guaiFENesin ipratropium-albuteroL magnesium sulfate magnesium sulfate midodrine ondansetron potassium chloride OR potassium chloride OR potassium chloride IV (Adult) sennosides-docusate sodium sodium phosphate IV OR sodium phosphate IV - central line OR sod phos di, mono-K phos mono sodium chloride sodium chloride Lab Results LABs: Results from last 7 days Lab Units 05/15/25 0451 05/14/25 0519 05/13/25 0901 WBC x10E9/L 9.4 9.1 8.3 HEMOGLOBIN g/dL 8.9* 9.4* 9.5* HEMATOCRIT % 28.0* 29.2* 29.3* PLATELETS X10E9/L 187 192 177 Results from last 7 days Lab Units 05/15/25 0451 05/14/25 0519 05/13/25 0901 POTASSIUM mmol/L 3.6 4.2 4.2 CHLORIDE mmol/L 90* 88* 89* CO2 mmol/L 40* 37* 41* BUN mg/dL 67* 72* 79* CREATININE mg/dL 1.70* 1.69* 1.92* CALCIUM mg/dL 9.5 9.3 9.8 Intake/Output last 3 shifts: I/O last 3 completed shifts: In: 588.6 [P.O.:240; IV Piggyback:348.6] Out: 3125 [Urine:3125] Intake/Output this shift: I/O this shift: In: 480 [P.O.:480] Out: - Radiology CT of the abdomen shows bilateral pleural effusion with adjacent atelectasis bilaterally. She had CT chest on 05/02/2025 that showed cardiomegaly and bilateral increased interstitial marking with bilateral pleural effusion. Mery Couch MD [facility] This note was completed with the assistance of a speech- recognition system. Every effort was made to ensure accuracy. However, inadvertent computerized journeyman lineman errors may be present and no guarantees can be provided that every mistake has been identified and corrected by editing. * Yomi Cooley DO - 05/15/2025 6:56 AM EST Images from the original note were not included. NEPHROLOGY PROGRESS NOTE Assessment Chronic kidney disease stage 4 with baseline creatinine unknown presented with serum creatinine of 1.8 mg/dL, serum creatinine currently at 1.7 mg/dL. Bilateral hydronephrosis with history of chronic right retroperitoneal fibrosis with bilateral stent exchanges most recent stent exchange 03/2025, urology following recommending placement of left percutaneous nephrostomy tube by interventional Radiology, with plans of potential bilateral ureteral stent removal on Friday. Acute on chronic heart failure, on IV diuretics, EF of 40-45%, improved with diuresis Hypertension, blood pressure currently controlled Diabetes mellitus type 2 management per primary Anemia of chronic disease iron replete, on Aranesp Acute hypoxic respiratory failure on non-rebreather Metabolic encephalopathy, improved Plan Transitioned to Bumex 2 mg p.o. b.i.d. Renal panel daily Strict I&Os Check VBG Continue fluid and salt restriction Noted plans for IR nephrostomy tube placement likely tomorrow Interval history Patient seen examined at bedside. Hemodynamically stable. On CPAP. Appetite stable. 2.3 L of urine output documented over last 24 hours. Problem List Chronic kidney disease stage 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 Renal serologies from 05/09/2025 showing negative MPO PR3 antibody negative VIVEK normal complements normal free light chain ratio, urinalysis showing 6 hyaline casts large leukocyte esterase 70 protein. Urine protein creatinine ratio of 2.1 g.SPEP Unremarkable. 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 Bilateral ureteral stents for bilateral hydronephrosis for which she gets stents exchange every 3 months Hypertension Diabetes mellitus type 2 Hyperlipidemia Neuropathy Gout Coronary artery disease status post CABG x3 in 2017 Abdominal aortic aneurysm repair Echocardiogram performed 05/10/2025 showing left ventricle size normal with increase hypertrophy noted. Systolic function decreased with EF of 40-45%. Right ventricle size normal systolic function low normal. Ilbh-go-ycunpism mitral regurgitation wbhs-el-djimptdv tricuspid regurgitation elevated RVSP of 46 mmHg. Physical Exam Admission Weight: Weight: 77.6 kg (171 lb 1.2 oz) I/O last 3 completed shifts: In: 648.4 [P.O.:240; IV Piggyback:408.4] Out: 3800 [Urine:3800] Weight change: Wt Readings from Last 3 Encounters: 05/15/25 75.9 kg (167 lb 5.3 oz) Vitals: Vitals: 05/15/25 0000 05/15/25 0400 05/15/25 0415 05/15/25 0500 BP: 131/50 119/58 152/80 Pulse: 64 61 62 71 Resp: 12 16 13 16 Temp: 36.7 ??C (98.1 ??F) 37 ??C (98.6 ??F) TempSrc: Axillary Axillary SpO2: 98% 97% 99% 100% Weight: 75.9 kg (167 lb 5.3 oz) Height: General: Alert, oriented x 3 and in no obvious distress Psychiatric: Has a normal mood and affect. HEENT: Head normocephalic. Eyes: Conjunctivae and EOM are normal. Pupils are equal, round and reactive to light. Cardiovascular: Normal rate, regular rhythm and normal heart sounds. No JVD. Pulmonary/Chest: Air entry bilaterally equal. No wheezes or rales. Abdominal: Soft, bowel sounds are normal and there was no tenderness rebound or guarding. Musculoskeletal: Normal range of motion. No tenderness. Neurological: No obvious deficits. Skin: No rash noted. Extremities: +1 pitting edema bilaterally Meds: Current Meds: bumetanide, 3 mg, intravenous, Q8H REBA carvediloL, 3.125 mg, oral, BID DAPTOmycin (CUBICIN) IV, 6 mg/kg (Adjusted), intravenous, Q48H darbepoetin reginald (ARANESP) injection, 60 mcg, subcutaneous, Weekly diclofenac sodium, 2 g, topical, 4x Daily ertapenem, 500 mg, intravenous, Q24H gabapentin, 300 mg, oral, Nightly heparin (porcine), 5,000 Units, subcutaneous, Q12H REBA insulin glargine, 20 Units, subcutaneous, Nightly insulin lispro, 2-10 Units, subcutaneous, TID with meals insulin lispro, 2-8 Units, subcutaneous, Nightly micafungin, 100 mg, intravenous, Q24H polyethylene glycol, 17 g, oral, Daily senna, 8.6 mg, oral, Nightly sodium chloride, 3 mL, intravenous, Q12H [facility] Continuous Infusions: dextrose 5 % in water, 100 mL/hr Laboratory Studies Results from last 7 days Lab Units 05/15/25 0451 05/14/25 0519 05/13/25 0901 05/12/25 0554 SODIUM mmol/L 138 136 138 135 POTASSIUM mmol/L 3.6 4.2 4.2 4.4 CHLORIDE mmol/L 90* 88* 89* 89* CO2 mmol/L 40* 37* 41* 36* BUN mg/dL 67* 72* 79* 73* CREATININE mg/dL 1.70* 1.69* 1.92* 1.87* CALCIUM mg/dL 9.5 9.3 9.8 9.2 PHOSPHORUS mg/dL 3.7 3.7 -- -- MAGNESIUM mg/dL 2.2 2.1 -- 2.1 Results from last 7 days Lab Units 05/15/25 0451 05/14/25 0519 05/13/25 0901 WBC x10E9/L 9.4 9.1 8.3 HEMOGLOBIN g/dL 8.9* 9.4* 9.5* HEMATOCRIT % 28.0* 29.2* 29.3* PLATELETS X10E9/L 187 192 177 Results from last 7 days Lab Units 05/15/25 0451 05/14/25 0519 05/12/25 0554 MAGNESIUM mg/dL 2.2 2.1 2.1 Lab Results Component Value Date CALCIUM 9.5 05/15/2025 Lab Results Component Value Date IRON 55 05/09/2025 TIBC 237 (L) 05/09/2025 FERRITIN 133 05/09/2025 Please contact me at [phone] (Office) or [phone] (Answering service) with any questions. Yomi Cooley DO [facility] This note was created with the assistance of a speech-recognition program. Although the intention is to generate a document that actually reflects the content of the visit, no guarantees can be provided that every mistake has been identified and corrected by editing. * Guy Drummond MD - 05/14/2025 4:18 PM EDT Images from the original note were not included. [facility] Progress Note 05/14/2025 Patient Name: Lexi Cm : 1945 Hospital Day: 7 SUBJECTIVE Follow-up for shortness of breath. The patient seen and examined. NAEON. Patient states that she is still having dyspnea Endorses intermittent tremors. OBJECTIVE Vital Signs: Temp: [36.3 ??C (97.4 ??F)-37 ??C (98.6 ??F)] 36.6 ??C (97.9 ??F) Pulse: [66-83] 71 Resp: [12-25] 13 BP: (110-144)/(26-57) 120/45 FiO2 (%): [30 %] 30 % SpO2: [89 %-100 %] 96 % O2 Device: Non-invasive mask (BiPap/CPAP) O2 Flow Rate (L/min): [2 L/min] 2 L/min Weight: Body mass index is 33.53 kg/m??. Admission weight: 77.6 kg (171 lb 1.2 oz) Wt Readings from Last 3 Encounters: 05/13/25 75.3 kg (166 lb 0.1 oz) Input/Output: Intake/Output Summary (Last 24 hours) at 05/14/2025 1619 Last data filed at 05/14/2025 1609 Gross per 24 hour Intake 433.56 ml Output 1125 ml Net -691.44 ml Physical Exam: General appearance: Alert, cooperative, no distress. Eyes: L pupil appears to be extremely dilated and sluggish to react. L facial droop also noted Conjunctiva/corneas moist and clear, no pallor or icterus. ENT: Oropharynx clear with moist mucous membranes and no mucosal ulcerations. No thrush. External ears and nose are normal without lesions or scars. Respiratory: Normal work of breathing. No use of accessory muscles. Diffuse inspiratory coarse crackles. No wheezing or rhonchi. Cardiovascular: Regular rate and rhythm, S1, S2 normal, no murmur, rub or gallop. No LE edema. Abdomen: Soft, non-tender, no masses. No hernia. No hepatosplenomegaly. Skin: No rashes, lesions or ulcers. No induration or subcutaneous nodules. Psychiatric: Mood and affect appropriate, Appropriate judgment and insight. Alert and oriented. Labs/Imaging: Recent Results (from the past 24 hours) Bedside Glucose *Place/Obtain serum glucose if >500 per glucometer. Collection Time: 05/13/25 9:20 PM Result Value Ref Range Bedside Glucose (POC) 225 (H) 65 - 99 mg/dL Liver panel Collection Time: 05/14/25 5:19 AM Result Value Ref Range TOTAL PROTEIN 6.3 6.0 - 8.0 g/dL ALBUMIN 3.4 3.2 - 5.3 g/dL BILIRUBIN,TOTAL 0.6 0.3 - 1.2 mg/dL ALKALINE PHOSPHATASE 55 39 - 130 U/L AST 14 <=41 U/L ALT <3 <=31 U/L BILIRUBIN,DIRECT 0.1 <=0.4 mg/dL Basic Metabolic Panel Collection Time: 05/14/25 5:19 AM Result Value Ref Range SODIUM 136 134 - 146 mmol/L POTASSIUM 4.2 3.5 - 5.0 mmol/L CHLORIDE 88 (L) 98 - 109 mmol/L CARBON DIOXIDE 37 (H) 22 - 32 mmol/L ANION GAP 11 5 - 15 mmol/L BLOOD UREA NITROGEN 72 (H) 5 - 27 mg/dL CREATININE 1.69 (H) 0.40 - 1.00 mg/dL GLUCOSE 203 (H) 65 - 99 mg/dL CALCIUM 9.3 8.5 - 10.5 mg/dL EGFR Non-Race Dependent 31 (L) >=60 ml/min/1.73sq.m CBC auto differential Collection Time: 05/14/25 5:19 AM Result Value Ref Range WBC 9.1 4 - 11 x10E9/L RBC Count 3.01 (L) 3.8 - 5.2 X10E12/L Hemoglobin 9.4 (L) 11.7 - 15.5 g/dL Hematocrit 29.2 (L) 35 - 47 % MCV 97 80 - 100 fL MCH 31.2 27 - 34 pg MCHC 32.2 32 - 36 g/dL RDW 18.5 (H) 11.5 - 15 % Platelet Count 192 150 - 450 X10E9/L MPV 9.9 7 - 12 fL Neutrophils % 68.2 % Lymphocytes % 19.9 % Monocytes % 7.8 % Eosinophils % 3.0 % Basophils % 1.1 % Neutrophils Absolute (A) 6.2 1.5 - 6.6 10*3/uL Lymphocytes Absolute 1.8 1.0 - 3.5 10*3/uL Monocytes Absolute 0.7 0.0 - 0.9 10*3/uL Eosinophils Absolute 0.3 0.0 - 0.4 10*3/uL Basophils Absolute 0.1 0.0 - 0.2 10*3/uL Differential Type AUTOMATED DIFFERENTIAL Magnesium Collection Time: 05/14/25 5:19 AM Result Value Ref Range MAGNESIUM 2.1 1.8 - 2.6 mg/dL Phosphorus Collection Time: 05/14/25 5:19 AM Result Value Ref Range PHOSPHORUS 3.7 2.4 - 4.9 mg/dL Ionized calcium Collection Time: 05/14/25 5:19 AM Result Value Ref Range IONIZED CALCIUM - ICAN 4.4 (L) 4.5 - 5.3 mg/dL B-type natriuretic peptide Collection Time: 05/14/25 5:19 AM Result Value Ref Range BNP 1,173 (H) <=100 pg/mL CK Total Collection Time: 05/14/25 5:19 AM Result Value Ref Range CPK 15 (L) 24 - 170 U/L Bedside Glucose *Place/Obtain serum glucose if >500 per glucometer. Collection Time: 05/14/25 7:51 AM Result Value Ref Range Bedside Glucose (POC) 200 (H) 65 - 99 mg/dL Bedside Glucose *Place/Obtain serum glucose if >500 per glucometer. Collection Time: 05/14/25 12:00 PM Result Value Ref Range Bedside Glucose (POC) 198 (H) 65 - 99 mg/dL Microbiology Results Procedure Component Value Units Date/Time Blood culture #1 [[id number]] Collected: 05/14/25 0952 Specimen: Blood, Venous Updated: 05/14/25 1028 Blood culture #2 [[id number]] Collected: 05/14/25 0952 Specimen: Blood, Venous Updated: 05/14/25 1028 Urine Culture Urine, Indwelling Catheter [[id number]] (Abnormal) (Susceptibility) Collected: 05/09/25 2314 Specimen: Urine, Indwelling Catheter Updated: 05/14/25 1128 CULTURE RESULTS >100,000 CFU/mL Siobhan glabrata 10,000-50,000 CFU/mL Vancomycin resistant Enterococcus faecium Narrative: Urine received without preservative - delays in transport may affect results. Interpret with caution and clinical correlation is recommended. Susceptibility Vancomycin resistant Enterococcus faecium Method Not Specified Ampicillin >=32.0 Resistant Levofloxacin >=8.0 Resistant Linezolid 2.0 Susceptible Nitrofurantoin 64 Intermediate Vancomycin >=32.0 Resistant No results found. All available laboratory, imaging, and microbiology data has been personally reviewed in detail, and accessible in full per EMR. Medications: bumetanide, 3 mg, intravenous, Q8H REBA carvediloL, 3.125 mg, oral, BID DAPTOmycin (CUBICIN) IV, 6 mg/kg (Adjusted), intravenous, Q48H darbepoetin reginald (ARANESP) injection, 60 mcg, subcutaneous, Weekly diclofenac sodium, 2 g, topical, 4x Daily ertapenem, 500 mg, intravenous, Q24H gabapentin, 300 mg, oral, Nightly heparin (porcine), 5,000 Units, subcutaneous, Q12H REBA insulin lispro, 2-10 Units, subcutaneous, TID with meals insulin lispro, 2-8 Units, subcutaneous, Nightly micafungin, 100 mg, intravenous, Q24H polyethylene glycol, 17 g, oral, Daily senna, 8.6 mg, oral, Nightly sodium chloride, 3 mL, intravenous, Q12H REBA Infusion: dextrose 5 % in water, 100 mL/hr PRN medications: acetaminophen bisacodyL calcium gluconate calcium gluconate calcium gluconate dextrose dextrose 5 % in water dextrose 50 % in water (D50W) glucagon (human recombinant) guaiFENesin ipratropium-albuteroL magnesium sulfate magnesium sulfate midodrine ondansetron potassium chloride OR potassium chloride OR potassium chloride IV (Adult) sennosides-docusate sodium sodium phosphate IV OR sodium phosphate IV - central line OR sod phos di, mono-K phos mono sodium chloride sodium chloride ASSESSMENT and plan: Active Hospital Problems Diagnosis Date Noted Respiratory failure ([facility]) 05/08/2025 Acute exacerbation of CHF (congestive heart failure) ([facility] [place]) 05/08/2025 Resolved Problems No resolved problems to display. - Acute hypoxic hypercapnic respiratory failure requiring NIPPV- now on 3L O2 NC: - LLL community acquired pneumonia/ Aspiration pneumonia: - Concern for obesity hypoventilation syndrome - Acute on chronic HFpEF (TTE EF 55% (05/02/25): - B/l Pleural effusions: - BNP at OSH was 11,105. - On 3L NC and BiPAP at night - Finish IV Levofloxacin 05/09/25 - IV bumex as patient has persistent pulmonary edema on CXR 05/12/25. Continue diamox. Strict I/O and daily weight. Monitor kidney function and electrolytes. Nephro following -Pulm following and recommend need for BiPAP at night. Patient will need PFTs outpatient - Acute encephalopathy- resolved: - Urine culture positive - persistent B/l hydronephrosis duet to retroperitoneal fibrosis s/p b/l ureteral stents exchange 04/12/25 at OSH: - Tovar catheter was placed at OSH 05/02/25 for strict I/O: - Last available urine cultures from OSH (04/28/25): ESBL Klebsiella - Urine cultures 05/09/25 with siobhan glabrata and enterococcus species - Pending blood cultures - Urology following. Plans for L percutaneous nephrostomy tube with IR and possible nephroureteral catheter placement and possible stent retrieval on 05/16/25 - ID following. Started on ertapenem, daptomycin, ad micafungin. -Dilated L pupil -L facial droop -Stroke alert called 05/13/25 -CT head 05/13/25 nonacute MRA head pending -Neuro following. - CAD s/p CABG: - Primary HTN: - PAD: - Continue lipitor and Coreg 3.125 mg p.o. b.i.d.. - Holding home ASA and plavix in the setting of urologic procedure above - SUSAN on CKD IV, resolved - Hyponatremia, resolved - Hyperkalemia, resvoled - Nephrology following. Albumin ordered - DM2 - Hyperglycemia - A1c 6.3% - Continue sliding scale - Restart home lantus - Recent left hip fracture S/p surgical fixation 03/21/2025 PT/OT. DVT prophylaxis: SCDs. Heparin 5000 units SQ BID. Code Status: Full code. Disposition: [facility] Guy Drummond MD [facility] * Hayley Ricketts, [facility] - 05/14/2025 2:18 PM EDT [facility] Department of Pharmacy Pharmacist to Physician Communication The dose of daptomycin has been changed to 6 mg/kg using adjusted body weight (BMI > 30 mg/m2) every 48 hours per the [facility] approved dosing guidelines, based on body mass index is 33.53 kg/m??. and an estimated creatinine clearance is 16.7 mL/min (A) (by C-G formula based on SCr of 1.69 mg/dL (H)). Indication: VRE UTI Thank you, Hayley Ricketts RPH * Hayley Ricketts RPH - 05/14/2025 2:13 PM EDT [facility] Department of Pharmacy Pharmacist to Physician Communication The dose of ertapenem for UTI has been changed to 500 mg every 24 hours per the [facility] approved renal dosing guidelines, based on an estimated creatinine clearance is 16.7 mL/min (A) (by C-G formula based on SCr of 1.69 mg/dL (H)). Thank you, Hayley Ricketts RPH * Marija Mosqueda MD - 05/14/2025 8:14 AM EDT Images from the original note were not included. [facility] Progress Note Patient - Lexi Cm Age - 79 y.o. - 1945 Date of Admission - 05/08/2025 8:24 PM ASSESSMENT Acute hypoxic and hypercapnic respiratory failure Acute heart failure with preserved ejection fraction Obesity hypoventilation syndrome Restrictive lung disease related to neuromuscular weakness/body habitus PLAN Titrate FiO2 to keep SaO2 greater than or equal to 90% Noninvasive positive-pressure as needed for increased work of breathing or hypoxia/hypercapnia, andalso to be used while sleeping Diuresis per Nephrology She will need to be discharged to facility with BiPAP 27/12 with 2 LPM bled in at night until we areable to arrange for home BiPAP. SUBJECTIVE Feels slightly better Less shortness of breath VITALS BP 121/55 Pulse 79 Temp 36.7 ??C (98 ??F) (Oral) Resp 23 Ht 149.9 cm (4' 11 ) Wt 75.3 kg (166 lb 0.1 oz) LMP (LMP Unknown) SpO2 96% BMI 33.53 kg/m?? Exam Physical Exam The patient is awake and alert No increased work of breathing at rest S1-S2 regular rate Chest diminished at bases. No wheezing Abdomen soft nontender Meds Medications Reviewed. Lab Results LABs: Results from last 7 days Lab Units 05/14/25 0505/13/25 0901 05/12/25 0554 WBC x10E9/L 9.1 8.3 8.9 HEMOGLOBIN g/dL 9.4* 9.5* 9.1* HEMATOCRIT % 29.2* 29.3* 27.6* PLATELETS X10E9/L 192 177 193 Results from last 7 days Lab Units 05/14/25 0505/13/25 0901 05/12/25 0554 POTASSIUM mmol/L 4.2 4.2 4.4 CHLORIDE mmol/L 88* 89* 89* CO2 mmol/L 37* 41* 36* BUN mg/dL 72* 79* 73* CREATININE mg/dL 1.69* 1.92* 1.87* CALCIUM mg/dL 9.3 9.8 9.2 Marija Mosqueda MD [facility] Pul[facility] / Critical Care * Yomi Cooley DO - 05/14/2025 7:04 AM EDT Images from the original note were not included. NEPHROLOGY PROGRESS NOTE Assessment Chronic kidney disease stage 4 with baseline creatinine unknown presented with serum creatinine of 1.8 mg/dL, serum creatinine currently at 1.6 mg/dL. Bilateral hydronephrosis with history of chronic right retroperitoneal fibrosis with bilateral stent exchanges most recent stent exchange 03/2025, urology following recommending placement of left percutaneous nephrostomy tube by interventional Radiology, with plans of potential bilateral ureteral stent removal on Friday. Acute on chronic heart failure, on IV diuretics, EF of 40-45% Hypertension, blood pressure currently controlled Diabetes mellitus type 2 management per primary Anemia of chronic disease iron replete Acute hypoxic respiratory failure on non-rebreather Metabolic encephalopathy, improved Plan Continue IV Bumex 3 mg tid Renal panel daily Strict I&Os Continue fluid and salt restriction Appreciate urology and IR input Interval history Patient seen examined at bedside. Hemodynamically stable. On non-rebreather. 2.2 L of urine output documented over the last 24 hours. Problem List Chronic kidney disease stage 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 Renal serologies from 05/09/2025 showing negative MPO PR3 antibody negative VIVEK normal complements normal free light chain ratio, urinalysis showing 6 hyaline casts large leukocyte esterase 70 protein. Urine protein creatinine ratio of 2.1 g.SPEP Unremarkable. 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 Bilateral ureteral stents for bilateral hydronephrosis for which she gets stents exchange every 3 months Hypertension Diabetes mellitus type 2 Hyperlipidemia Neuropathy Gout Coronary artery disease status post CABG x3 in 2017 Abdominal aortic aneurysm repair Echocardiogram performed 05/10/2025 showing left ventricle size normal with increase hypertrophy noted. Systolic function decreased with EF of 40-45%. Right ventricle size normal systolic function low normal. Nmdt-ak-akcuxznx mitral regurgitation ouaa-ij-rivxotbw tricuspid regurgitation elevated RVSP of 46 mmHg. Physical Exam Admission Weight: Weight: 77.6 kg (171 lb 1.2 oz) I/O last 3 completed shifts: In: 59.9 [IV Piggyback:59.9] Out: 3800 [Urine:3800] Weight change: Wt Readings from Last 3 Encounters: 05/13/25 75.3 kg (166 lb 0.1 oz) Vitals: Vitals: 05/14/25 0200 05/14/25 0300 05/14/25 0400 05/14/25 0500 BP: (!) 139/39 122/46 Pulse: 74 73 76 75 Resp: 13 14 15 13 Temp: 36.7 ??C (98 ??F) TempSrc: Oral SpO2: 98% 95% 92% (!) 89% Weight: Height: General: Alert, oriented x 3 and in no obvious distress Psychiatric: Has a normal mood and affect. HEENT: Head normocephalic. Eyes: Conjunctivae and EOM are normal. Pupils are equal, round and reactive to light. Cardiovascular: Normal rate, regular rhythm and normal heart sounds. No JVD. Pulmonary/Chest: Air entry bilaterally equal. No wheezes or rales. Abdominal: Soft, bowel sounds are normal and there was no tenderness rebound or guarding. Musculoskeletal: Normal range of motion. No tenderness. Neurological: No obvious deficits. Skin: No rash noted. Extremities: +1 pitting edema bilaterally Meds: Current Meds: acetaZOLAMIDE, 250 mg, oral, Q8H REBA amoxicillin-pot clavulanate, 1 tablet, oral, Q12H REBA atorvastatin, 10 mg, oral, Nightly bumetanide, 3 mg, intravenous, Q8H REBA carvediloL, 3.125 mg, oral, BID darbepoetin reginald (ARANESP) injection, 60 mcg, subcutaneous, Weekly diclofenac sodium, 2 g, topical, 4x Daily gabapentin, 300 mg, oral, Nightly heparin (porcine), 5,000 Units, subcutaneous, Q12H REBA insulin lispro, 2-10 Units, subcutaneous, TID with meals insulin lispro, 2-8 Units, subcutaneous, Nightly polyethylene glycol, 17 g, oral, Daily senna, 8.6 mg, oral, Nightly sodium chloride, 3 mL, intravenous, Q12H REBA Continuous Infusions: dextrose 5 % in water, 100 mL/hr Laboratory Studies Results from last 7 days Lab Units 05/14/25 0505/13/25 0901 05/12/25 0554 05/11/25 0525 SODIUM mmol/L 136 138 135 135 POTASSIUM mmol/L 4.2 4.2 4.4 3.9 CHLORIDE mmol/L 88* 89* 89* 90* CO2 mmol/L 37* 41* 36* 36* BUN mg/dL 72* 79* 73* 71* CREATININE mg/dL 1.69* 1.92* 1.87* 2.00* CALCIUM mg/dL 9.3 9.8 9.2 8.9 PHOSPHORUS mg/dL 3.7 -- -- -- MAGNESIUM mg/dL 2.1 -- 2.1 2.0 Results from last 7 days Lab Units 05/14/25 0519 05/13/25 0901 05/12/25 0554 WBC x10E9/L 9.1 8.3 8.9 HEMOGLOBIN g/dL 9.4* 9.5* 9.1* HEMATOCRIT % 29.2* 29.3* 27.6* PLATELETS X10E9/L 192 177 193 Results from last 7 days Lab Units 05/14/25 0519 05/12/25 0554 05/11/25 0525 MAGNESIUM mg/dL 2.1 2.1 2.0 Lab Results Component Value Date CALCIUM 9.3 05/14/2025 Lab Results Component Value Date IRON 55 05/09/2025 TIBC 237 (L) 05/09/2025 FERRITIN 133 05/09/2025 Please contact me at [phone] (Office) or [phone] (Answering service) with any questions. Yomi Cooley DO [facility] This note was created with the assistance of a speech-recognition program. Although the intention is to generate a document that actually reflects the content of the visit, no guarantees can be provided that every mistake has been identified and corrected by editing. * Guy Drummond MD - 05/13/2025 5:29 PM EDT Images from the original note were not included. [facility] Progress Note 05/13/2025 Patient Name: Lexi Cm : 1945 Hospital Day: 6 SUBJECTIVE Follow-up for shortness of breath. The patient seen and examined. Stroke alert was called as L pupil was dilated and slow to react andpatient had facial droop to the L. No other focal deficits were noted. Stroke team presented to bedside and CT brain noncontrast and MRA brain were ordered. Patient denies fevers, chills, nausea, emesis, dizziness, lightheadedness, and chest pain. Continues to endorse mild dyspnea. States that she is feeling hungry OBJECTIVE Vital Signs: Temp: [36.6 ??C (97.9 ??F)-37.1 ??C (98.8 ??F)] 36.6 ??C (97.9 ??F) Pulse: [70-87] 76 Resp: [12-24] 16 BP: (114-150)/(51-76) 128/56 FiO2 (%): [30 %-40 %] 30 % SpO2: [91 %-100 %] 94 % O2 Device: Non-invasive mask (BiPap/CPAP) O2 Flow Rate (L/min): [2 L/min-4 L/min] 2 L/min Weight: Body mass index is 33.53 kg/m??. Admission weight: 77.6 kg (171 lb 1.2 oz) Wt Readings from Last 3 Encounters: 05/13/25 75.3 kg (166 lb 0.1 oz) Input/Output: Intake/Output Summary (Last 24 hours) at 05/13/2025 1729 Last data filed at 05/13/2025 1600 Gross per 24 hour Intake 59.85 ml Output 2675 ml Net -2615.15 ml Physical Exam: General appearance: Alert, cooperative, no distress. Eyes: L pupil appears to be extremely dilated and sluggish to react. L facial droop also noted Conjunctiva/corneas moist and clear, no pallor or icterus. ENT: Oropharynx clear with moist mucous membranes and no mucosal ulcerations. No thrush. External ears and nose are normal without lesions or scars. Respiratory: Normal work of breathing. No use of accessory muscles. Diffuse inspiratory coarse crackles. No wheezing or rhonchi. Cardiovascular: Regular rate and rhythm, S1, S2 normal, no murmur, rub or gallop. No LE edema. Abdomen: Soft, non-tender, no masses. No hernia. No hepatosplenomegaly. Skin: No rashes, lesions or ulcers. No induration or subcutaneous nodules. Psychiatric: Mood and affect appropriate, Appropriate judgment and insight. Alert and oriented. Labs/Imaging: Recent Results (from the past 24 hours) Bedside Glucose *Place/Obtain serum glucose if >500 per glucometer. Collection Time: 05/12/25 8:16 PM Result Value Ref Range Bedside Glucose (POC) 207 (H) 65 - 99 mg/dL [place] draw Collection Time: 05/13/25 5:29 AM Narrative The following orders were created for panel order [place] draw. Procedure Abnormality Status --------- ------ Lavender Top[[id number]] Final result Please view results for these tests on the individual orders. Lavender Top Collection Time: 05/13/25 5:29 AM Result Value Ref Range Extra Tube Auto Resulted Liver panel Collection Time: 05/13/25 5:32 AM Result Value Ref Range TOTAL PROTEIN 6.1 6.0 - 8.0 g/dL ALBUMIN 3.3 3.2 - 5.3 g/dL BILIRUBIN,TOTAL 0.6 0.3 - 1.2 mg/dL ALKALINE PHOSPHATASE 53 39 - 130 U/L AST 12 <=41 U/L ALT <3 <=31 U/L BILIRUBIN,DIRECT 0.1 <=0.4 mg/dL Bedside Glucose *Place/Obtain serum glucose if >500 per glucometer. Collection Time: 05/13/25 7:32 AM Result Value Ref Range Bedside Glucose (POC) 192 (H) 65 - 99 mg/dL Bedside Glucose *Place/Obtain serum glucose if >500 per glucometer. Collection Time: 05/13/25 8:59 AM Result Value Ref Range Bedside Glucose (POC) 178 (H) 65 - 99 mg/dL Extra Tubes Collection Time: 05/13/25 9:01 AM Narrative The following orders were created for panel order Extra Tubes. Procedure Abnormality Status --------- ------ Lavender Top On Ice[[id number]] Final result Please view results for these tests on the individual orders. Lavender Top On Ice Collection Time: 05/13/25 9:01 AM Result Value Ref Range Extra Tube Auto Resulted Basic Metabolic Panel Collection Time: 05/13/25 9:01 AM Result Value Ref Range SODIUM 138 134 - 146 mmol/L POTASSIUM 4.2 3.5 - 5.0 mmol/L CHLORIDE 89 (L) 98 - 109 mmol/L CARBON DIOXIDE 41 (H) 22 - 32 mmol/L ANION GAP 8 5 - 15 mmol/L BLOOD UREA NITROGEN 79 (H) 5 - 27 mg/dL CREATININE 1.92 (H) 0.40 - 1.00 mg/dL GLUCOSE 171 (H) 65 - 99 mg/dL CALCIUM 9.8 8.5 - 10.5 mg/dL EGFR Non-Race Dependent 26 (L) >=60 ml/min/1.73sq.m CBC auto differential Collection Time: 05/13/25 9:01 AM Result Value Ref Range WBC 8.3 4 - 11 x10E9/L RBC Count 2.98 (L) 3.8 - 5.2 X10E12/L Hemoglobin 9.5 (L) 11.7 - 15.5 g/dL Hematocrit 29.3 (L) 35 - 47 % MCV 98 80 - 100 fL MCH 31.8 27 - 34 pg MCHC 32.3 32 - 36 g/dL RDW 18.4 (H) 11.5 - 15 % Platelet Count 177 150 - 450 X10E9/L MPV 9.6 7 - 12 fL Neutrophils % 70.4 % Lymphocytes % 19.8 % Monocytes % 6.1 % Eosinophils % 3.1 % Basophils % 0.6 % Neutrophils Absolute (A) 5.8 1.5 - 6.6 10*3/uL Lymphocytes Absolute 1.6 1.0 - 3.5 10*3/uL Monocytes Absolute 0.5 0.0 - 0.9 10*3/uL Eosinophils Absolute 0.3 0.0 - 0.4 10*3/uL Basophils Absolute 0.0 0.0 - 0.2 10*3/uL Differential Type AUTOMATED DIFFERENTIAL Bedside Glucose *Place/Obtain serum glucose if >500 per glucometer. Collection Time: 05/13/25 12:48 PM Result Value Ref Range Bedside Glucose (POC) 195 (H) 65 - 99 mg/dL Blood Gas, Arterial Collection Time: 05/13/25 3:43 PM Result Value Ref Range Sample type ARTERIAL pH, Arterial 7.315 (L) 7.350 - 7.450 pCO2, Arterial 78.9 (HH) 35.0 - 45.0 mmHg PO2, Arterial 187 (H) 80 - 100 mmHg Base, Excess 11.0 (H) 0.0 - 2.0 mmol/L HCO3, Arterial 40.2 (H) 22.0 - 26.0 mmol/L %O2 Saturation, Arterial 99.0 >90.0 % Marcos's test N/A SPO2 100 % Sample site R Brach Insp. O2 conc. 36 % Source Of Oxygen NC Bedside Glucose *Place/Obtain serum glucose if >500 per glucometer. Collection Time: 05/13/25 4:12 PM Result Value Ref Range Bedside Glucose (POC) 165 (H) 65 - 99 mg/dL Microbiology Results Procedure Component Value Units Date/Time Urine Culture Urine, Indwelling Catheter [[id number]] (Abnormal) Collected: 05/09/252 Specimen: Urine, Indwelling Catheter Updated: 05/13/25924 CULTURE RESULTS >100,000 CFU/mL Siobhan glabrata 10,000-50,000 CFU/mL Enterococcus species Narrative: Urine received without preservative - delays in transport may affect results. Interpret with caution and clinical correlation is recommended. CT brain without contrast Result Date: 05/13/2025 CT BRAIN WO CONT 05/13/2025 10:33 AM INDICATION: left pupil asymmetry, stroke alert, questionable facial droop COMPARISON: CT brain without contrast 05/02/2025 TECHNIQUE: Serial axial images were obtained on a multidetector CT through the head without the use of intravenous contrast, as per the standard departmental protocol. Multiplanar 2D MPR reformatted images were then generated. FINDINGS: Noacute intracranial hemorrhage, mass effect, shift of midline structures, or abnormal extra axial fluid collection. No evidence of acute large vessel territorial ischemia. Chronic microvascular ischemic changes. Mild to moderate overall brain volume loss. Partial empty sella. Intracranial vascular calcifications. Ventricular system size and morphology are normal, basal cisterns are patent. Bilateral pseudophakia, orbits are symmetric. No depressed or displaced calvarial fracture. Minimal mucosalthickening of the paranasal sinuses. Mastoid air cells are well-aerated. Asymmetric degenerative changes of the right temporomandibular joint. Presumed cerumen within the bilateral external auditory canals. Multiple deep dental caries and periapical lucencies. IMPRESSION: * No acute intracranial findings, by CT. If there is concern for acute infarct, MRI can be considered. * Partially visualized nodules within the bilateral superficial parotid lobes measuring up to 0.9 cm in short axis. These may represent enlarged lymph nodes or primary salivary gland tumor, consider follow-up neck cross-sectional imaging or tissue sampling for definitive diagnosis. * Multiple deep dental caries and periapical lucencies. Approved by Resident: Jackson Ritter MD on 05/13/2025 10:49 AM Tomer Mitchell MD have personally reviewed the image(s) and agree with and/or edited the report Finalized by Tomer Daily MD on 05/13/2025 11:06 AM All available laboratory, imaging, and microbiology data has been personally reviewed in detail, and accessible in full per EMR. Medications: acetaZOLAMIDE, 250 mg, oral, Q8H REBA amoxicillin-pot clavulanate, 1 tablet, oral, Q12H REBA atorvastatin, 10 mg, oral, Nightly bumetanide, 3 mg, intravenous, Q8H REBA carvediloL, 3.125 mg, oral, BID darbepoetin reginald (ARANESP) injection, 60 mcg, subcutaneous, Weekly diclofenac sodium, 2 g, topical, 4x Daily gabapentin, 300 mg, oral, Nightly heparin (porcine), 5,000 Units, subcutaneous, Q12H REBA insulin lispro, 2-10 Units, subcutaneous, TID with meals insulin lispro, 2-8 Units, subcutaneous, Nightly polyethylene glycol, 17 g, oral, Daily senna, 8.6 mg, oral, Nightly sodium chloride, 3 mL, intravenous, Q12H REBA Infusion: dextrose 5 % in water, 100 mL/hr PRN medications: acetaminophen bisacodyL calcium gluconate calcium gluconate calcium gluconate dextrose dextrose 5 % in water dextrose 50 % in water (D50W) glucagon (human recombinant) guaiFENesin ipratropium-albuteroL magnesium sulfate magnesium sulfate ondansetron potassium chloride OR potassium chloride OR potassium chloride IV (Adult) sennosides-docusate sodium sodium phosphate IV OR sodium phosphate IV - central line OR sod phos di, mono-K phos mono sodium chloride sodium chloride ASSESSMENT and plan: Active Hospital Problems Diagnosis Date Noted Respiratory failure ([facility] [place]) 05/08/2025 Acute exacerbation of CHF (congestive heart failure) ([facility] [place]) 05/08/2025 Resolved Problems No resolved problems to display. - Acute hypoxic hypercapnic respiratory failure requiring NIPPV- now on 3L O2 NC: - LLL community acquired pneumonia/ Aspiration pneumonia: - Concern for obesity hypoventilation syndrome - Acute on chronic HFpEF (TTE EF 55% (05/02/25): - B/l Pleural effusions: - BNP at OSH was 11,105. - On 3L NC and BiPAP at night - Finish IV Levofloxacin 05/09/25 - Restarted IV bumex as patient has persistent pulmonary edema on CXR 05/12/25. Continue diamox. Strict I/O and daily weight. Monitor kidney function and electrolytes. Nephro following -Pulm following and recommend need for BiPAP at night. Patient will need PFTs outpatient - Acute encephalopathy- resolved: - Urine culture positive - persistent B/l hydronephrosis duet to retroperitoneal fibrosis s/p b/l ureteral stents exchange 04/12/25 at OSH: - Tovar catheter was placed at OSH 05/02/25 for strict I/O: - Last available urine cultures from OSH (04/28/25): ESBL Klebsiella - Urine cultures 05/09/25 with siobhan glabrata and enterococcus species - Urology following. Plans for L percutaneous nephrostomy tube with IR and possible nephroureteral catheter placement and possible stent retrieval on 05/16/25 - Per urology, started patient of renally reduced augmentin BID and consulted ID for possible need for amphotericin in the setting of siobhan glabrata and urology wanting to treat the siobhan -Dilated L pupil -L facial droop -Stroke alert called 05/13/25 -CT head 05/13/25 nonacute -Neuro following. MRA head pending -Continue npo status until MRA head returns - CAD s/p CABG: - Primary HTN: - PAD: - Continue lipitor and Coreg 3.125 mg p.o. b.i.d.. - Holding home ASA and plavix in the setting of urologic procedure above - SUSAN on CKD IV, resolved - Hyponatremia, resolved - Hyperkalemia, resvoled - Nephrology following. Albumin ordered - DM2 - Hyperglycemia - A1c 6.3% - Continue sliding scale - Restart home lantus when patient is able to take PO - Recent left hip fracture S/p surgical fixation 03/21/2025 PT/OT. DVT prophylaxis: SCDs. Heparin 5000 units SQ BID. Code Status: Full code. Disposition: [facility] Guy Drummond MD [facility] * Gustavo Enriquez MD - 05/13/2025 11:56 AM EDT Images from the original note were not included. Nephrology Daily Progress Note INTERVAL HISTORY: Continues to be short of breath. Continues to be on oxygen. Continues to have edema. Awaiting percutaneous nephrostomy tube placement by IR. Has not had a bowel movement in almost a week. VITAL SIGNS TREND: Vitals: 05/13/25 0800 05/13/25 0905 05/13/25 0920 05/13/25 1000 BP: 137/57 150/68 140/57 Pulse: 71 85 83 80 Resp: 12 24 19 21 Temp: TempSrc: SpO2: 100% 100% 100% 100% Weight: Height: INTAKE/OUTPUT: Intake/Output Summary (Last 24 hours) at 05/13/2025 1156 Last data filed at 05/13/2025 0700 Gross per 24 hour Intake 240 ml Output 1950 ml Net -1710 ml I/O this shift: In: - Out: 225 [Urine:225] WEIGHT: Last 3 Weight Readings 05/11/25 0541 05/12/25 0606 05/13/25 0547 Weight: 79 kg (174 lb 2.6 oz) 74.8 kg (164 lb 14.5 oz) 75.3 kg (166 lb 0.1 oz) PHYSICAL EXAM: Blood pressure 140/57, pulse 80, temperature 36.7 ??C (98 ??F), temperature source Axillary, resp. rate 21, height 149.9 cm (4' 11 ), weight 75.3 kg (166 lb 0.1 oz), SpO2 100%. Temp: [36.7 ??C (98 ??F)-36.9 ??C (98.5 ??F)] 36.7 ??C (98 ??F) Pulse: [70-93] 80 Resp: [12-25] 21 BP: (114-150)/(51-76) 140/57 FiO2 (%): [30 %-40 %] 40 % SpO2: [91 %-100 %] 100 % O2 Device: Nasal cannula O2 Flow Rate (L/min): [3.5 L/min-5 L/min] 4 L/min General appearance: alert in no apparent distress. HEENT: no JVD, no lymphadenopathy. Heart exam: normal S1-S2 Lungs: clear to auscultation bilaterally with minimal bibasilar crackles Abdomen: Obese, soft, no tenderness, no guarding, positive bowel sounds Extremities: 1+ edema Vascular: adequate pulses and no carotid bruits. Musculoskeletal: no joint tenderness or swelling. LABORATORY EVALUATION: Results from last 7 days Lab Units 05/13/25 0905/12/25 0554 05/11/25 0525 05/10/25 0548 05/09/25 0556 SODIUM mmol/L 138 135 135 135 137 POTASSIUM mmol/L 4.2 4.4 3.9 4.1 4.0 CHLORIDE mmol/L 89* 89* 90* 90* 92* CO2 mmol/L 41* 36* 36* 36* 37* ANION GAP mmol/L 8 10 9 9 8 BUN mg/dL 79* 73* 71* 68* 65* CREATININE mg/dL 1.92* 1.87* 2.00* 1.90* 1.86* CALCIUM mg/dL 9.8 9.2 8.9 9.1 9.1 MAGNESIUM mg/dL -- 2.1 2.0 2.0 -- Results from last 7 days Lab Units 05/13/25 0532 05/09/25 2314 05/09/25 1152 05/09/25 0556 PROTEIN TOTAL g/dL 6.1 -- 5.7* 5.7* ALBUMIN g/dL 3.3 -- -- 3.0* AST U/L 12 -- -- 10 ALT U/L <3 -- -- 3 BILIRUBIN, DIRECT mg/dL 0.1 -- -- -- BILIRUBIN, TOTAL mg/dL 0.6 -- -- 0.5 BILIRUBIN URINE -- Negative -- -- ALK PHOS U/L 53 -- -- 57 Results from last 7 days Lab Units 05/13/25 0905/12/25 0554 05/11/25 0525 05/10/25 0548 05/09/25 0556 WBC x10E9/L 8.3 8.9 9.0 7.7 6.3 HEMOGLOBIN g/dL 9.5* 9.1* 8.7* 8.7* 8.7* HEMATOCRIT % 29.3* 27.6* 26.3* 26.3* 26.5* PLATELETS X10E9/L 177 193 189 197 219 @RESUFAST(IRON,TIBC,FERRITIN,IRONSAT,FOLATE,[id number]))@ Results from last 7 days Lab Units 05/13/25 0901 05/13/25 0859 05/13/25 0732 05/12/25201505/12/25 1700 BEDSIDE GLUCOSE mg/dL -- 178* 192* 207* 219* GLUCOSE mg/dL 171* -- -- -- -- Results from last 7 days Lab Units 05/09/25 1152 CPK ISOENZYMES U/L 12* CURRENT MEDICATIONS: acetaZOLAMIDE, 250 mg, oral, Q8H REBA atorvastatin, 10 mg, oral, Nightly bumetanide, 4 mg, oral, BID carvediloL, 3.125 mg, oral, BID darbepoetin reginald (ARANESP) injection, 60 mcg, subcutaneous, Weekly diclofenac sodium, 2 g, topical, 4x Daily gabapentin, 300 mg, oral, Nightly heparin (porcine), 5,000 Units, subcutaneous, Q12H REBA insulin lispro, 2-10 Units, subcutaneous, TID with meals insulin lispro, 2-8 Units, subcutaneous, Nightly ipratropium-albuteroL, 3 mL, nebulization, Q6H sodium chloride, 3 mL, intravenous, Q12H REBA PROBLEM LIST: Chronic kidney disease stage 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 Renal serologies from 05/09/2025 showing CPK was 12, serum protein electrophoresis was negative monoclonal bands, VIVEK anti MPO anti PR3 anti-GBM C Anca and p-ANCA were all negative, C3 was 125 and C4 was 29, free kappa to lambda ratio was 1.54, urinalysis showing 6 hyaline casts large leukocyte esterase 70 protein. Urine protein creatinine ratio of 2.1 g. 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 Bilateral ureteral stents for bilateral hydronephrosis secondary to retroperitoneal fibrosis for which she gets stents exchange every 3 months Hypertension Diabetes mellitus type 2 Hyperlipidemia Neuropathy Gout Coronary artery disease status post CABG x3 in 2017 Abdominal aortic aneurysm repair Echocardiogram performed 05/10/2025 showing left ventricle size normal with increase hypertrophy noted. Systolic function decreased with EF of 40-45%. Right ventricle size normal systolic function low normal. [id number]-viggblda mitral regurgitation [id number] tricuspid regurgitation elevated RVSP of 46 mmHg. IMPRESSION: 1. Chronic kidney disease stage 4: Creatinine continues to be relatively stable. 2. 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 Urology is following. Noted recommendations for left nephrostomy tube placement. 3. Acute on chronic congestive heart failure with reduced ejection fraction. Continues to have pulmonary edema on chest x-ray as well as pedal edema on exam. IV Bumex was ordered 4. Metabolic alkalosis in the setting of diuresis. VBG from May 10 revealed pH of 7.445 with a pCO2 of 58 and serum bicarbonate of 40. On Diamox. 5. Hypertension: With acceptable but not optimal blood pressure control. 6. Anemia of chronic kidney disease with normal iron studies B12 and folate. Aranesp was ordered. 7. Constipation: Bowel regimen was ordered PLAN: 1. Discontinue p.o. Bumex 2. Start IV Bumex given persistent pulmonary edema on chest x-ray and pedal edema on exam 3. Continue Diamox for metabolic alkalosis secondary to volume contraction in setting of diuresis 4. MiraLax and Senokot as well as Dulcolax for constipation Discussed with her nurse at the bedside Discussed with her at the bedside Gustavo Enriquez M.D. For questions please call: Answering Service at [phone] Or Office at [phone] This note was created with the assistance of a speech-recognition program. Although the intention is to generate a document that actually reflects the content of the visit, no guarantees can be provided that every mistake has been identified and corrected by editing. * Mery Couch MD - 05/13/2025 10:49 AM EDT Images from the original note were not included. [facility] Progress Note Patient - Lexi Cm Age - 79 y.o. - 1945 Date of Admission - 05/08/2025 8:24 PM Reason for Consultation: Respiratory failure ASSESSMENT Acute respiratory failure hypoxia and hypercapni on with oxygen without oxygen how much GI dust want to see what is was a secondary to acute diastolic heart failure. Obesity hypoventilation syndrome Restrictive lung disease secondary to chest wall weakness and body habitus Acute Diastolic congestive heart failure. Other lung etiologies need to be ruled out after adequate diuresis. CKD stage 4 Coronary artery disease status post CABG. Diabetes mellitus type 2. Bilateral pleural effusion Essential hypertension UTIs status post bilateral kidney stents PLAN Oxygen therapy to keep sat O2 above 90%. NIV as needed Arterial blood gas that was done on 3 L/min nasal cannula showed PaCO2 of 58 confirming chronic hypercapnia. The hypercapnia is secondary to obesity hypoventilation syndrome and unlikely to be related to ALEJANDRA.Patient may or may not have ALEJANDRA however it should not contribute to this degree of hypercapnia. She will benefit from BiPAP at night The patient requires positive ventilation at night due to the severity of the disease, weak breathing muscles and potential life-threatening condition including CO2 retention, the patient also requires ventilation to be used during the day as needed in addition to every night use age with face mask. Discussed ordering NIV at home. Patient is agreeable. Nocturnal pulse oximetry trend off BiPAP that was done on 05/11 and requirement of oxygen increasedup to 6 L per minute with saturation reached 70s then he was placed on BiPAP. She did not tolerate sleeping off BiPAP. Diuresis per Nephrology. Lower extremity ultrasound is negative for DVT. Finished Levaquin course Patient will need pulmonary function test as outpatient. She will need to be discharged to facility with BiPAP 27/12 with 2 LPM bled in at night until we areable to arrange for home BiPAP. Discussed plan of care with RN and social worker health services. SUBJECTIVE Stroke alert was called this morning because of dilated pupil. Patient denies worsening shortness a breath. She is alert and awake. VITALS BP 140/57 Pulse 80 Temp 36.7 ??C (98 ??F) (Axillary) Resp 21 Ht 149.9 cm (4' 11 ) Wt 75.3kg (166 lb 0.1 oz) LMP (LMP Unknown) SpO2 100% BMI 33.53 kg/m?? Last 3 Weight Readings 05/11/25 0541 05/12/25 0606 05/13/25 0547 Weight: 79 kg (174 lb 2.6 oz) 74.8 kg (164 lb 14.5 oz) 75.3 kg (166 lb 0.1 oz) Resp Readings from Last 3 Encounters: 05/13/25 21 PF Readings from Last 3 Encounters: No data found for PF @LASTSAO2(3)@ Exam Physical Exam Constitutional She is oriented to person, place, and time. She appears well- developed and well-nourished. No distress. Eyes: EOM are normal. Pupils are equal, round, and reactive to light. Pulmonary/Chest: Effort normal. She has rales. Abdominal: Bowel sounds are normal. Soft. Musculoskeletal: General: Edema present. Neurological She is alert and oriented to person, place, and time. Skin: Skin is warm and dry. Meds Medications Reviewed. Scheduled Meds: acetaZOLAMIDE, 250 mg, oral, Q8H REBA atorvastatin, 10 mg, oral, Nightly bumetanide, 4 mg, oral, BID carvediloL, 3.125 mg, oral, BID darbepoetin reginald (ARANESP) injection, 60 mcg, subcutaneous, Weekly diclofenac sodium, 2 g, topical, 4x Daily gabapentin, 300 mg, oral, Nightly heparin (porcine), 5,000 Units, subcutaneous, Q12H REBA insulin lispro, 2-10 Units, subcutaneous, TID with meals insulin lispro, 2-8 Units, subcutaneous, Nightly ipratropium-albuteroL, 3 mL, nebulization, Q6H sodium chloride, 3 mL, intravenous, Q12H [facility] Continuous Infusions: dextrose 5 % in water, 100 mL/hr PRN Meds: acetaminophen calcium gluconate calcium gluconate calcium gluconate dextrose dextrose 5 % in water dextrose 50 % in water (D50W) glucagon (human recombinant) guaiFENesin magnesium sulfate magnesium sulfate ondansetron potassium chloride OR potassium chloride OR potassium chloride IV (Adult) sennosides-docusate sodium sodium phosphate IV OR sodium phosphate IV - central line OR sod phos di, mono-K phos mono sodium chloride sodium chloride Lab Results LABs: Results from last 7 days Lab Units 05/13/25 0901 05/12/25 0554 05/11/25 0525 WBC x10E9/L 8.3 8.9 9.0 HEMOGLOBIN g/dL 9.5* 9.1* 8.7* HEMATOCRIT % 29.3* 27.6* 26.3* PLATELETS X10E9/L 177 193 189 Results from last 7 days Lab Units 05/13/25 0901 05/12/25 0554 05/11/25 0525 POTASSIUM mmol/L 4.2 4.4 3.9 CHLORIDE mmol/L 89* 89* 90* CO2 mmol/L 41* 36* 36* BUN mg/dL 79* 73* 71* CREATININE mg/dL 1.92* 1.87* 2.00* CALCIUM mg/dL 9.8 9.2 8.9 Intake/Output last 3 shifts: I/O last 3 completed shifts: In: 480 [P.O.:480] Out: 2175 [Urine:2175] Intake/Output this shift: I/O this shift: In: - Out: 225 [Urine:225] Radiology CT of the abdomen shows bilateral pleural effusion with adjacent atelectasis bilaterally. She had CT chest on 05/02/2025 that showed cardiomegaly and bilateral increased interstitial marking with bilateral pleural effusion. Mery Couch MD [facility] This note was completed with the assistance of a speech- recognition system. Every effort was made to ensure accuracy. However, inadvertent computerized journeyman lineman errors may be present and no guarantees can be provided that every mistake has been identified and corrected by editing. * Guy Drummond MD - 05/12/2025 2:28 PM EDT Images from the original note were not included. [facility] Progress Note 05/12/2025 Patient Name: Lexi Cm : 1945 Hospital Day: 5 SUBJECTIVE Follow-up for shortness of breath. The patient seen and examined. No acute events over night events. Continues to endorse dyspnea but reports less shortness for breath compared to the last few days. Denies abdominal pain or flank pain. Denies fevers and chills OBJECTIVE Vital Signs: Temp: [36.6 ??C (97.9 ??F)-37.1 ??C (98.7 ??F)] 36.7 ??C (98 ??F) Pulse: [75-95] 93 Resp: [13-31] 21 BP: (119-143)/(47-67) 143/59 FiO2 (%): [30 %] 30 % SpO2: [84 %-96 %] 95 % O2 Device: Nasal cannula O2 Flow Rate (L/min): [3 L/min-6 L/min] 4 L/min Weight: Body mass index is 33.31 kg/m??. Admission weight: 77.6 kg (171 lb 1.2 oz) Wt Readings from Last 3 Encounters: 05/12/25 74.8 kg (164 lb 14.5 oz) Input/Output: Intake/Output Summary (Last 24 hours) at 05/12/2025 1428 Last data filed at 05/12/2025 0540 Gross per 24 hour Intake -- Output 650 ml Net -650 ml Physical Exam: General appearance: Alert, cooperative, no distress. Eyes: PERRLA, EOM's intact Conjunctiva/corneas moist and clear, no pallor or icterus. ENT: Oropharynx clear with moist mucous membranes and no mucosal ulcerations. No thrush. External ears and nose are normal without lesions or scars. Respiratory: Normal work of breathing. No use of accessory muscles. Diffuse inspiratory coarse crackles. No wheezing or rhonchi. Cardiovascular: Regular rate and rhythm, S1, S2 normal, no murmur, rub or gallop. No LE edema. Abdomen: Soft, non-tender, no masses. No hernia. No hepatosplenomegaly. Skin: No rashes, lesions or ulcers. No induration or subcutaneous nodules. Psychiatric: Mood and affect appropriate, Appropriate judgment and insight. Alert and oriented. Labs/Imaging: Recent Results (from the past 24 hours) Bedside Glucose *Place/Obtain serum glucose if >500 per glucometer. Collection Time: 05/11/25 5:06 PM Result Value Ref Range Bedside Glucose (POC) 234 (H) 65 - 99 mg/dL Bedside Glucose *Place/Obtain serum glucose if >500 per glucometer. Collection Time: 05/11/25 8:56 PM Result Value Ref Range Bedside Glucose (POC) 296 (H) 65 - 99 mg/dL Basic Metabolic Panel Collection Time: 05/12/25 5:54 AM Result Value Ref Range SODIUM 135 134 - 146 mmol/L POTASSIUM 4.4 3.5 - 5.0 mmol/L CHLORIDE 89 (L) 98 - 109 mmol/L CARBON DIOXIDE 36 (H) 22 - 32 mmol/L ANION GAP 10 5 - 15 mmol/L BLOOD UREA NITROGEN 73 (H) 5 - 27 mg/dL CREATININE 1.87 (H) 0.40 - 1.00 mg/dL GLUCOSE 220 (H) 65 - 99 mg/dL CALCIUM 9.2 8.5 - 10.5 mg/dL EGFR Non-Race Dependent 27 (L) >=60 ml/min/1.73sq.m CBC auto differential Collection Time: 05/12/25 5:54 AM Result Value Ref Range WBC 8.9 4 - 11 x10E9/L RBC Count 2.84 (L) 3.8 - 5.2 X10E12/L Hemoglobin 9.1 (L) 11.7 - 15.5 g/dL Hematocrit 27.6 (L) 35 - 47 % MCV 97 80 - 100 fL MCH 31.8 27 - 34 pg MCHC 32.8 32 - 36 g/dL RDW 18.2 (H) 11.5 - 15 % Platelet Count 193 150 - 450 X10E9/L MPV 9.1 7 - 12 fL Neutrophils % 70.0 % Lymphocytes % 19.4 % Monocytes % 6.9 % Eosinophils % 2.9 % Basophils % 0.8 % Neutrophils Absolute (A) 6.3 1.5 - 6.6 10*3/uL Lymphocytes Absolute 1.7 1.0 - 3.5 10*3/uL Monocytes Absolute 0.6 0.0 - 0.9 10*3/uL Eosinophils Absolute 0.3 0.0 - 0.4 10*3/uL Basophils Absolute 0.1 0.0 - 0.2 10*3/uL Differential Type AUTOMATED DIFFERENTIAL Magnesium Collection Time: 05/12/25 5:54 AM Result Value Ref Range MAGNESIUM 2.1 1.8 - 2.6 mg/dL Hemoglobin A1c Collection Time: 05/12/25 5:54 AM Result Value Ref Range HEMOGLOBIN A1C 6.3 (H) 4.4 - 5.6 % EST. AVERAGE GLUCOSE 134 mg/dL Bedside Glucose *Place/Obtain serum glucose if >500 per glucometer. Collection Time: 05/12/25 9:21 AM Result Value Ref Range Bedside Glucose (POC) 246 (H) 65 - 99 mg/dL Lactate w/ Reflex Collection Time: 05/12/25 11:17 AM Result Value Ref Range LACTATE W/REFLEX 1.6 0.4 - 2.0 mmol/L Narrative Result did not trigger repeat Lactate, re-order if needed. Bedside Glucose *Place/Obtain serum glucose if >500 per glucometer. Collection Time: 05/12/25 12:30 PM Result Value Ref Range Bedside Glucose (POC) 329 (H) 65 - 99 mg/dL Microbiology Results Procedure Component Value Units Date/Time Urine Culture Urine, Indwelling Catheter [[id number]] (Abnormal) Collected: 05/09/25 3136 Specimen: Urine, Indwelling Catheter Updated: 05/12/25 1057 CULTURE RESULTS >100,000 CFU/mL Siobhan glabrata 10,000-50,000 CFU/mL Enterococcus species Narrative: Urine received without preservative - delays in transport may affect results. Interpret with caution and clinical correlation is recommended. X-ray chest 1 view Result Date: 05/12/2025 History: monitor if improvement in interstitial edema Exam/Technique: AP chest upright Comparison: 05/08/2025 Findings: Sternotomy wires. Congested lungs effusions. IMPRESSION: Likely overload state.Low lung volumes. Finalized by Hugo Aquino MD on 05/12/2025 12:59 PM All available laboratory, imaging, and microbiology data has been personally reviewed in detail, and accessible in full per EMR. Medications: acetaZOLAMIDE, 250 mg, oral, Q8H REBA albumin human, 25 g, intravenous, Once atorvastatin, 10 mg, oral, Nightly bumetanide, 4 mg, oral, BID carvediloL, 3.125 mg, oral, BID darbepoetin reginald (ARANESP) injection, 60 mcg, subcutaneous, Weekly diclofenac sodium, 2 g, topical, 4x Daily gabapentin, 300 mg, oral, Nightly heparin (porcine), 5,000 Units, subcutaneous, Q12H REBA insulin lispro, 2-10 Units, subcutaneous, TID with meals insulin lispro, 2-8 Units, subcutaneous, Nightly ipratropium-albuteroL, 3 mL, nebulization, Q6H sodium chloride, 3 mL, intravenous, Q12H REBA Infusion: dextrose 5 % in water, 100 mL/hr PRN medications: acetaminophen calcium gluconate calcium gluconate calcium gluconate dextrose dextrose 5 % in water dextrose 50 % in water (D50W) glucagon (human recombinant) celinaFENesin magnesium sulfate magnesium sulfate ondansetron potassium chloride OR potassium chloride OR potassium chloride IV (Adult) sennosides-docusate sodium sodium phosphate IV OR sodium phosphate IV - central line OR sod phos di, mono-K phos mono sodium chloride sodium chloride ASSESSMENT and plan: Active Hospital Problems Diagnosis Date Noted Respiratory failure ([facility] [place]) 05/08/2025 Acute exacerbation of CHF (congestive heart failure) ([facility] [place]) 05/08/2025 Resolved Problems No resolved problems to display. - Acute hypoxic hypercapnic respiratory failure requiring NIPPV- now on 3L O2 NC: - LLL community acquired pneumonia/ Aspiration pneumonia: - Concern for obesity hypoventilation syndrome - Acute on chronic HFpEF (TTE EF 55% (05/02/25): - B/l Pleural effusions: - BNP at OSH was 11,105. - On 3L NC and BiPAP at night - Finish IV Levofloxacin 05/09/25 - Increased to PO Bumex 4 mg BID. Added Diamox. Strict I/O and daily weight. Monitor kidney function and electrolytes. Nephro following -Pulm following and recommend need for BiPAP at night. Patient will need PFTs outpatient -CXR ordered - Acute encephalopathy- resolved: - ESBL Klebsiella UTI (diagnosed before admission): - persistent B/l hydronephrosis duet to retroperitoneal fibrosis s/p b/l ureteral stents exchange 04/12/25 at OSH: - Tovar catheter was placed at OSH 05/02/25 for strict I/O: - Last available urine cultures from OSH (04/28/25): ESBL Klebsiella - Urology following. Plans for L percutaneous nephrostomy tube with IR and possible nephroureteral catheter placement and possible stent retrieval on 05/16/25 - CAD s/p CABG: - Primary HTN: - PAD: - Continue lipitor and Coreg 3.125 mg p.o. b.i.d.. - Holding home ASA and plavix in the setting of urologic procedure above - SUSAN on CKD IV, resolved - Hyponatremia, resolved - Hyperkalemia, resvoled - Nephrology following. Albumin ordered - DM2 - Hyperglycemia -A1c ordered. Increased sliding scale - Recent left hip fracture S/p surgical fixation 03/21/2025 PT/OT. DVT prophylaxis: SCDs. Heparin 5000 units SQ BID. Code Status: Full code. Disposition: [facility] Guy Drummond MD [facility] * Swapna Mcnair MD - 05/12/2025 1:42 PM EDT Images from the original note were not included. 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 with bilateral ureteral stents, exchanged in March 2025, Urology are recommending left nephrostomy tube Acute on chronic hypoxemic respiratory failure, on nasal cannula 4 liters/minute Acute on chronic diastolic congestive heart failure with bilateral pleural effusion Metabolic alkalosis and respiratory acidosis Anemia, on Aranesp Plan Continue Bumex Add Diamox Give albumin Interval history, uneventful night, patient denies chest pain, no SOB, , no abdominal pain, no nausea, no vomiting, Vital signs in last 24 hours: Vitals: 05/12/25 0915 05/12/25 1000 05/12/25 1230 05/12/25 1235 BP: 143/64 138/57 143/59 Pulse: 86 83 93 93 Resp: 22 25 21 Temp: 36.7 ??C (98 ??F) TempSrc: Axillary SpO2: 93% 92% 95% Weight: Height: Intake/Output: Intake/Output Summary (Last 24 hours) at 05/12/2025 1342 Last data filed at 05/12/2025 0540 Gross per 24 hour Intake -- Output 850 ml Net -850 ml Physical Exam: General appearance: alert in no acute distress. Head: Normocephalic, without obvious abnormality, atraumatic Eyes: Conjunctivae unremarkable, pupils reactive Neck: No JVD, no carotid bruit, neck supple, trachea midline cardiovascular: normal S1-S2, No gallops. Respiratory: Decreased breathing sounds at the bases Gastrointestinal: no tenderness, no guarding, no hepatosplenomegaly could be appreciated. Muscloskeletal: ++ LE edema, no active arthritis, normal range of movement Neurology: Moves all extremities, alert oriented Skin: no rash, no petechia Psychiatric, no anxiety, no suicidal ideas Lymphatic: no lymphadenopathy, no lymphedema Inpatient Meds: atorvastatin, 10 mg, oral, Nightly bumetanide, 2 mg, oral, BID carvediloL, 3.125 mg, oral, BID darbepoetin reginald (ARANESP) injection, 60 mcg, subcutaneous, Weekly diclofenac sodium, 2 g, topical, 4x Daily gabapentin, 300 mg, oral, BID heparin (porcine), 5,000 Units, subcutaneous, Q12H REBA insulin lispro, 2-10 Units, subcutaneous, TID with meals insulin lispro, 2-8 Units, subcutaneous, Nightly ipratropium-albuteroL, 3 mL, nebulization, Q6H sodium chloride, 3 mL, intravenous, Q12H REBA dextrose 5 % in water, 100 mL/hr Nutrition: Dietary Orders (From admission, onward) Start Ordered 05/10/25 1151 Adult diet Regular Texture; No Added Salt (3-4 gm Sodium); Fluid Restriction 1500 mL Diet effective now Question Answer Comment Diet Type: Regular Texture Sodium Modifiers: No Added Salt (3-4 gm Sodium) Fluid Restrictions: Fluid Restriction 1500 mL 05/10/25 1151 Labs: Results from last 7 days Lab Units 05/12/25 0554 05/11/25 0525 05/10/25 0548 05/09/25 0556 SODIUM mmol/L 135 135 135 137 POTASSIUM mmol/L 4.4 3.9 4.1 4.0 CHLORIDE mmol/L 89* 90* 90* 92* CO2 mmol/L 36* 36* 36* 37* BUN mg/dL 73* 71* 68* 65* CREATININE mg/dL 1.87* 2.00* 1.90* 1.86* CALCIUM mg/dL 9.2 8.9 9.1 9.1 MAGNESIUM mg/dL 2.1 2.0 2.0 -- Results from last 7 days Lab Units 05/12/25 0554 05/11/25 0525 05/10/25 0548 WBC x10E9/L 8.9 9.0 7.7 HEMOGLOBIN g/dL 9.1* 8.7* 8.7* HEMATOCRIT % 27.6* 26.3* 26.3* PLATELETS X10E9/L 193 189 197 Results from last 7 days Lab Units 05/12/25 0554 05/11/25 0525 05/10/25 0548 MAGNESIUM mg/dL 2.1 2.0 2.0 Lab Results Component Value Date CALCIUM 9.2 05/12/2025 Lab Results Component Value Date IRON 55 05/09/2025 TIBC 237 (L) 05/09/2025 FERRITIN 133 05/09/2025 Problem list Chronic kidney disease stage 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 Renal serologies from 05/09/2025 showing negative MPO PR3 antibody negative VIVEK normal complements normal free light chain ratio, urinalysis showing 6 hyaline casts large leukocyte esterase 70 protein. Urine protein creatinine ratio of 2.1 g.SPEP Unremarkable. 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 Bilateral ureteral stents for bilateral hydronephrosis for which she gets stents exchange every 3 months Hypertension Diabetes mellitus type 2 Hyperlipidemia Neuropathy Gout Coronary artery disease status post CABG x3 in 2017 Abdominal aortic aneurysm repair Echocardiogram performed 05/10/2025 showing left ventricle size normal with increase hypertrophy noted. Systolic function decreased with EF of 40-45%. Right ventricle size normal systolic function low normal. [id number] mitral regurgitation [id number] tricuspid regurgitation elevated RVSP of 46 mmHg. SWAPNA MCNAIR MD [facility] ANY QUESTIONS FEEL FREE TO CALL: 1. OFFICE [phone] 2. ANSWERING SERVICE:[phone] YOU CAN CONTACT ME THROUGH [employer] SECURE CHAT DURING THE DAYTIME HOURS, IF NO RESPONSE AFTER 5 MINUTES CALL THE ANSWERING SERVICE This note was created with the assistance of a speech-recognition program. Although the intention is to generate a document that actually reflects the content of the visit, no guarantees can be provided that every mistake has been identified and corrected by editing. * Mery Couch MD - 05/12/2025 8:49 AM EDT Images from the original note were not included. [facility] Progress Note Patient - Lexi Cm Age - 79 y.[facility]. [facility] 1945 [id number] Date of Admission - 05/08/2025 8:24 PM Reason for Consultation: Respiratory failure ASSESSMENT Acute respiratory failure hypoxia and hypercapni on with oxygen without oxygen how much GI dust want to see what is was a secondary to acute diastolic heart failure. Obesity hypoventilation syndrome Restrictive lung disease secondary to chest wall weakness and body habitus Acute Diastolic congestive heart failure. Other lung etiologies need to be ruled out after adequate diuresis. CKD stage 4 Coronary artery disease status post CABG. Diabetes mellitus type 2. Bilateral pleural effusion Essential hypertension UTIs status post bilateral kidney stents PLAN Oxygen therapy to keep sat O2 above 90%. NIV as needed Arterial blood gas that was done on 3 L/min nasal cannula showed PaCO2 of 58 confirming chronic hypercapnia. The hypercapnia is secondary to obesity hypoventilation syndrome and unlikely to be related to ALEJANDRA.Patient may or may not have ALEJANDRA however it should not contribute to this degree of hypercapnia. She will benefit from BiPAP at night The patient requires positive ventilation at night due to the severity of the disease, weak breathing muscles and potential life-threatening condition including CO2 retention, the patient also requires ventilation to be used during the day as needed in addition to every night use age with face mask. Discussed ordering NIV at home. Patient is agreeable. Nocturnal pulse oximetry trend off BiPAP tonight that was done on 05/11 and requirement of oxygen increased up to 6 L per minute with saturation reached 70s then he was placed on BiPAP. Diuresis per Nephrology. Lower extremity ultrasound is negative for DVT. Finished Levaquin course Patient will need pulmonary function test as outpatient. She will need to be discharged to facility with BiPAP 27/12 with 2 LPM bled in at night until we areable to arrange for home BiPAP. Discussed plan of care with RN and social worker health services. SUBJECTIVE Patient had nocturnal pulse oximetry trend yesterday. She desatted after sleeping and her oxygen increased to 6 L. then she was placed on BiPAP at 6:30 a.m.. She spent 2 hours and 5 minutes with saturation less than 89%. VITALS BP 124/60 Pulse 81 Temp 36.6 ??C (97.9 ??F) (Axillary) Resp 19 Ht 149.9 cm (4' 11 ) Wt 74.8 kg (164 lb 14.5 oz) LMP (LMP Unknown) SpO2 96% BMI 33.31 kg/m?? Last 3 Weight Readings 05/08/25199905/11/25 0541 05/12/25 0606 Weight: 77.6 kg (171 lb 1.2 oz) 79 kg (174 lb 2.6 oz) 74.8 kg (164 lb 14.5 oz) Resp Readings from Last 3 Encounters: 05/12/25 19 PF Readings from Last 3 Encounters: No data found for PF @LASTSAO2(3)@ Exam Physical Exam Constitutional She is oriented to person, place, and time. She appears well- developed and well-nourished. No distress. Eyes: EOM are normal. Pupils are equal, round, and reactive to light. Pulmonary/Chest: Effort normal. She has rales. Abdominal: Bowel sounds are normal. Soft. Musculoskeletal: General: Edema present. Neurological She is alert and oriented to person, place, and time. Skin: Skin is warm and dry. Meds Medications Reviewed. Scheduled Meds: atorvastatin, 10 mg, oral, Nightly bumetanide, 2 mg, oral, BID carvediloL, 3.125 mg, oral, BID darbepoetin reginald (ARANESP) injection, 60 mcg, subcutaneous, Weekly diclofenac sodium, 2 g, topical, 4x Daily gabapentin, 300 mg, oral, BID heparin (porcine), 5,000 Units, subcutaneous, Q12H REBA insulin lispro, 1-4 Units, subcutaneous, Nightly insulin lispro, 1-5 Units, subcutaneous, TID with meals ipratropium-albuteroL, 3 mL, nebulization, Q6H sodium chloride, 3 mL, intravenous, Q12H REBA Continuous Infusions: dextrose 5 % in water, 100 mL/hr PRN Meds: acetaminophen calcium gluconate calcium gluconate calcium gluconate dextrose dextrose 5 % in water dextrose 50 % in water (D50W) glucagon (human recombinant) guaiFENesin magnesium sulfate magnesium sulfate ondansetron potassium chloride OR potassium chloride OR potassium chloride IV (Adult) sennosides-docusate sodium sodium phosphate IV OR sodium phosphate IV - central line OR sod phos di, mono-K phos mono sodium chloride sodium chloride Lab Results LABs: Results from last 7 days Lab Units 05/12/25 0554 05/11/25 0525 05/10/25 0548 WBC x10E9/L 8.9 9.0 7.7 HEMOGLOBIN g/dL 9.1* 8.7* 8.7* HEMATOCRIT % 27.6* 26.3* 26.3* PLATELETS X10E9/L 193 189 197 Results from last 7 days Lab Units 05/12/25 0554 05/11/25 0525 05/10/25 0548 POTASSIUM mmol/L 4.4 3.9 4.1 CHLORIDE mmol/L 89* 90* 90* CO2 mmol/L 36* 36* 36* BUN mg/dL 73* 71* 68* CREATININE mg/dL 1.87* 2.00* 1.90* CALCIUM mg/dL 9.2 8.9 9.1 Intake/Output last 3 shifts: I/O last 3 completed shifts: In: 310 [P.O.:310] Out: 2074 [Urine:2074] Intake/Output this shift: No intake/output data recorded. Radiology CT of the abdomen shows bilateral pleural effusion with adjacent atelectasis bilaterally. She had CT chest on 05/02/2025 that showed cardiomegaly and bilateral increased interstitial marking with bilateral pleural effusion. Mery Couch MD [facility] This note was completed with the assistance of a speech- recognition system. Every effort was made to ensure accuracy. However, inadvertent computerized journeyman lineman errors may be present and no guarantees can be provided that every mistake has been identified and corrected by editing. * Deana Lopez RCP - 05/12/2025 7:53 AM EDT 05/12/25 0752 Home Oxygen Qualification - Nocturnal Method SpO2 < 89% For A Total Of 5 Minutes Yes Home O2 Support Method Of Delivery (to be determined by physician) * Guy Drummond MD - 05/11/2025 3:52 PM EDT Images from the original note were not included. [facility] Progress Note 05/11/2025 Patient Name: Lexi Cm : 1945 Hospital Day: 4 SUBJECTIVE Follow-up for shortness of breath. The patient seen and examined. No acute events over night. Continues to endorse dyspnea but reportsless shortness for breath compared to the last few days. Denies abdominal pain or flank pain. Denies fevers and chills OBJECTIVE Vital Signs: Temp: [36.6 ??C (97.8 ??F)-37.2 ??C (98.9 ??F)] 36.6 ??C (97.8 ??F) Pulse: [71-92] 92 Resp: [11-27] 21 BP: (101-155)/(48-112) 135/50 FiO2 (%): [30 %] 30 % SpO2: [88 %-100 %] 93 % O2 Device: Nasal cannula O2 Flow Rate (L/min): [2 L/min-3 L/min] 3 L/min Weight: Body mass index is 35.18 kg/m??. Admission weight: 77.6 kg (171 lb 1.2 oz) Wt Readings from Last 3 Encounters: 05/11/25 79 kg (174 lb 2.6 oz) Input/Output: Intake/Output Summary (Last 24 hours) at 05/11/2025 1552 Last data filed at 05/11/2025 1359 Gross per 24 hour Intake 310 ml Output 1425 ml Net -1115 ml Physical Exam: General appearance: Alert, cooperative, no distress. Eyes: PERRLA, EOM's intact Conjunctiva/corneas moist and clear, no pallor or icterus. ENT: Oropharynx clear with moist mucous membranes and no mucosal ulcerations. No thrush. External ears and nose are normal without lesions or scars. Respiratory: Normal work of breathing. No use of accessory muscles. Diffuse inspiratory coarse crackles. No wheezing or rhonchi. Cardiovascular: Regular rate and rhythm, S1, S2 normal, no murmur, rub or gallop. No LE edema. Abdomen: Soft, non-tender, no masses. No hernia. No hepatosplenomegaly. Skin: No rashes, lesions or ulcers. No induration or subcutaneous nodules. Psychiatric: Mood and affect appropriate, Appropriate judgment and insight. Alert and oriented. Labs/Imaging: Recent Results (from the past 24 hours) Basic Metabolic Panel Collection Time: 05/11/25 5:25 AM Result Value Ref Range SODIUM 135 134 - 146 mmol/L POTASSIUM 3.9 3.5 - 5.0 mmol/L CHLORIDE 90 (L) 98 - 109 mmol/L CARBON DIOXIDE 36 (H) 22 - 32 mmol/L ANION GAP 9 5 - 15 mmol/L BLOOD UREA NITROGEN 71 (H) 5 - 27 mg/dL CREATININE 2.00 (H) 0.40 - 1.00 mg/dL GLUCOSE 218 (H) 65 - 99 mg/dL CALCIUM 8.9 8.5 - 10.5 mg/dL EGFR Non-Race Dependent 25 (L) >=60 ml/min/1.73sq.m CBC auto differential Collection Time: 05/11/25 5:25 AM Result Value Ref Range WBC 9.0 4 - 11 x10E9/L RBC Count 2.73 (L) 3.8 - 5.2 X10E12/L Hemoglobin 8.7 (L) 11.7 - 15.5 g/dL Hematocrit 26.3 (L) 35 - 47 % MCV 96 80 - 100 fL MCH 31.8 27 - 34 pg MCHC 33.0 32 - 36 g/dL RDW 17.9 (H) 11.5 - 15 % Platelet Count 189 150 - 450 X10E9/L MPV 8.9 7 - 12 fL Neutrophils % 67.5 % Lymphocytes % 19.8 % Monocytes % 8.8 % Eosinophils % 2.7 % Basophils % 1.2 % Neutrophils Absolute (A) 6.1 1.5 - 6.6 10*3/uL Lymphocytes Absolute 1.8 1.0 - 3.5 10*3/uL Monocytes Absolute 0.8 0.0 - 0.9 10*3/uL Eosinophils Absolute 0.2 0.0 - 0.4 10*3/uL Basophils Absolute 0.1 0.0 - 0.2 10*3/uL Differential Type AUTOMATED DIFFERENTIAL Magnesium Collection Time: 05/11/25 5:25 AM Result Value Ref Range MAGNESIUM 2.0 1.8 - 2.6 mg/dL Bedside Glucose *Place/Obtain serum glucose if >500 per glucometer. Collection Time: 05/11/25 1:56 PM Result Value Ref Range Bedside Glucose (POC) 278 (H) 65 - 99 mg/dL Bedside Glucose *Place/Obtain serum glucose if >500 per glucometer. Collection Time: 05/11/25 2:12 PM Result Value Ref Range Bedside Glucose (POC) 285 (H) 65 - 99 mg/dL Microbiology Results Procedure Component Value Units Date/Time Urine Culture Urine, Indwelling Catheter [[id number]] Collected: 05/09/25 4054 Specimen: Urine, Indwelling Catheter Updated: 05/11/25 0856 CULTURE RESULTS Culture in progress Narrative: Urine received without preservative - delays in transport may affect results. Interpret with caution and clinical correlation is recommended. No results found. All available laboratory, imaging, and microbiology data has been personally reviewed in detail, and accessible in full per EMR. Medications: atorvastatin, 10 mg, oral, Nightly [START ON 05/12/2025] bumetanide, 2 mg, oral, BID carvediloL, 3.125 mg, oral, BID darbepoetin reginald (ARANESP) injection, 60 mcg, subcutaneous, Weekly diclofenac sodium, 2 g, topical, 4x Daily furosemide, 80 mg, intravenous, Q8H REBA gabapentin, 300 mg, oral, BID heparin (porcine), 5,000 Units, subcutaneous, Q12H REBA insulin lispro, 1-4 Units, subcutaneous, Nightly insulin lispro, 1-5 Units, subcutaneous, TID with meals ipratropium-albuteroL, 3 mL, nebulization, Q6H sodium chloride, 3 mL, intravenous, Q12H REBA Infusion: dextrose 5 % in water, 100 mL/hr PRN medications: acetaminophen calcium gluconate calcium gluconate calcium gluconate dextrose dextrose 5 % in water dextrose 50 % in water (D50W) glucagon (human recombinant) guaiFENesin magnesium sulfate magnesium sulfate ondansetron potassium chloride OR potassium chloride OR potassium chloride IV (Adult) sennosides-docusate sodium sodium phosphate IV OR sodium phosphate IV - central line OR sod phos di, mono-K phos mono sodium chloride sodium chloride ASSESSMENT and plan: Active Hospital Problems Diagnosis Date Noted Respiratory failure ([facility] [place]) 05/08/2025 [facility] of [facility] 05/08/2025 Resolved Problems No resolved problems to display. - Acute hypoxic hypercapnic respiratory failure requiring NIPPV- now on 3L O2 NC: - LLL community acquired pneumonia/ Aspiration pneumonia: - Concern for obesity hypoventilation syndrome - Acute on chronic HFpEF (TTE EF 55% (05/02/25): - B/l Pleural effusions: - BNP at OSH was 11,105. - On 3L NC - Finish IV Levofloxacin 05/09/25 - Lasix 80 mg IV TID and plans to transition to Bumex 2 mg BID on 04/3025. Strict I/O and daily weight. Monitor kidney function and electrolytes. Nephro following -Pulm following and recommend need for BiPAP at night. Patient will need PFTs outpatient - Acute encephalopathy- resolved: - ESBL Klebsiella UTI (diagnosed before admission): - persistent B/l hydronephrosis duet to retroperitoneal fibrosis s/p b/l ureteral stents exchange 04/12/25 at OSH: - Tovar catheter was placed at OSH 05/02/25 for strict I/O: - Last available urine cultures from OSH (04/28/25): ESBL Klebsiella - Urology following. Plans for L percutaneous nephrostomy tube with IR and possible nephroureteral catheter placement and possible stent retrieval - CAD s/p CABG: - Primary HTN: - PAD: - Continue lipitor and Coreg 3.125 mg p.o. b.i.d.. - Holding home ASA and plavix in the setting of urologic procedure above - SUSAN on CKD IV, resolved - Hyponatremia, resolved - Hyperkalemia, resvoled - Monitor. - DM2 -Sliding scale - Recent left hip fracture S/p surgical fixation 03/21/2025 PT/OT. DVT prophylaxis: SCDs. Heparin 5000 units SQ BID. Code Status: Full code. Disposition: [facility] Guy Drummond MD [facility] * Yomi Cooley DO - 05/11/2025 2:41 PM EDT Images from the original note were not included. NEPHROLOGY PROGRESS NOTE Assessment Chronic kidney disease stage 4 with baseline creatinine unknown presented with serum creatinine of 1.8 mg/dL, serum creatinine currently at 2.0 mg/dL. Bilateral hydronephrosis with history of chronic right retroperitoneal fibrosis with bilateral stent exchanges most recent stent exchange 03/2025, urology following recommending placement of left percutaneous nephrostomy tube by interventional Radiology, with plans of potential bilateral ureteral stent removal. Plans of intervention this week. Acute on chronic heart failure, on IV diuretics, EF of 40-45% Hypertension, blood pressure currently controlled Diabetes mellitus type 2 management per primary Anemia of chronic disease iron replete Acute hypoxic respiratory failure on non-rebreather Metabolic encephalopathy, improved Plan Continue Lasix 80 mg IV t.i.d. for today will transition to oral Bumex 2 mg b.i.d. starting tomorrow Renal panel daily Strict I&Os Continue fluid and salt restriction Appreciate urology and IR input Interval history Patient seen examined at bedside. Hemodynamically stable. On nasal cannula 3 L. 1.3 L of urine output documented over the last 24 hours. Problem List Chronic kidney disease stage 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 Renal serologies from 05/09/2025 showing negative MPO PR3 antibody negative VIVEK normal complements normal free light chain ratio, urinalysis showing 6 hyaline casts large leukocyte esterase 70 protein. Urine protein creatinine ratio of 2.1 g.SPEP Unremarkable. 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 Bilateral ureteral stents for bilateral hydronephrosis for which she gets stents exchange every 3 months Hypertension Diabetes mellitus type 2 Hyperlipidemia Neuropathy Gout Coronary artery disease status post CABG x3 in 2017 Abdominal aortic aneurysm repair Echocardiogram performed 05/10/2025 showing left ventricle size normal with increase hypertrophy noted. Systolic function decreased with EF of 40-45%. Right ventricle size normal systolic function low normal. Qbvi-mu-lwmmmikn mitral regurgitation xwun-cu-boemcgon tricuspid regurgitation elevated RVSP of 46 mmHg. Physical Exam Admission Weight: Weight: 77.6 kg (171 lb 1.2 oz) I/O last 3 completed shifts: In: 240 [P.O.:240] Out: 1830 [Urine:1830] Weight change: Wt Readings from Last 3 Encounters: 05/11/25 79 kg (174 lb 2.6 oz) Vitals: Vitals: 05/11/25 1100 05/11/25 1200 05/11/25 1352 05/11/25 1425 BP: 135/50 Pulse: 86 87 74 91 Resp: 16 23 18 23 Temp: 36.6 ??C (97.8 ??F) TempSrc: Oral SpO2: 94% 93% 97% (!) 88% Weight: Height: General: Alert, oriented x 3 and in no obvious distress Psychiatric: Has a normal mood and affect. HEENT: Head normocephalic. Eyes: Conjunctivae and EOM are normal. Pupils are equal, round and reactive to light. Cardiovascular: Normal rate, regular rhythm and normal heart sounds. No JVD. Pulmonary/Chest: Air entry bilaterally equal. No wheezes or rales. Abdominal: Soft, bowel sounds are normal and there was no tenderness rebound or guarding. Musculoskeletal: Normal range of motion. No tenderness. Neurological: No obvious deficits. Skin: No rash noted. Extremities: +1 pitting edema bilaterally Meds: Current Meds: atorvastatin, 10 mg, oral, Nightly carvediloL, 3.125 mg, oral, BID darbepoetin reginald (ARANESP) injection, 60 mcg, subcutaneous, Weekly diclofenac sodium, 2 g, topical, 4x Daily furosemide, 80 mg, intravenous, Q8H REBA gabapentin, 300 mg, oral, BID heparin (porcine), 5,000 Units, subcutaneous, Q12H REBA insulin lispro, 1-4 Units, subcutaneous, Nightly insulin lispro, 1-5 Units, subcutaneous, TID with meals ipratropium-albuteroL, 3 mL, nebulization, Q6H sodium chloride, 3 mL, intravenous, Q12H REBA Continuous Infusions: dextrose 5 % in water, 100 mL/hr Laboratory Studies Results from last 7 days Lab Units 05/11/25 0525 05/10/25 0548 05/09/25 0556 SODIUM mmol/L 135 135 137 POTASSIUM mmol/L 3.9 4.1 4.0 CHLORIDE mmol/L 90* 90* 92* CO2 mmol/L 36* 36* 37* BUN mg/dL 71* 68* 65* CREATININE mg/dL 2.00* 1.90* 1.86* CALCIUM mg/dL 8.9 9.1 9.1 MAGNESIUM mg/dL 2.0 2.0 -- Results from last 7 days Lab Units 05/11/25 0525 05/10/25 0548 05/09/25 0556 WBC x10E9/L 9.0 7.7 6.3 HEMOGLOBIN g/dL 8.7* 8.7* 8.7* HEMATOCRIT % 26.3* 26.3* 26.5* PLATELETS X10E9/L 189 197 219 Results from last 7 days Lab Units 05/11/25 0525 05/10/25 0548 MAGNESIUM mg/dL 2.0 2.0 Lab Results Component Value Date CALCIUM 8.9 05/11/2025 Lab Results Component Value Date IRON 55 05/09/2025 TIBC 237 (L) 05/09/2025 FERRITIN 133 05/09/2025 Please contact me at [phone] (Office) or [phone] (Answering service) with any questions. Yomi Cooley DO [facility] This note was created with the assistance of a speech-recognition program. Although the intention is to generate a document that actually reflects the content of the visit, no guarantees can be provided that every mistake has been identified and corrected by editing. * Mery Couch MD - 05/11/2025 8:41 AM EDT Images from the original note were not included. [facility] Progress Note Patient - Lexi Cm Age - 79 y.[facility] 1945 [id number] Date of Admission - 05/08/2025 8:24 PM Reason for Consultation: Respiratory failure ASSESSMENT Acute respiratory failure hypoxia and hypercapnia secondary to acute diastolic heart failure. Obesity hypoventilation syndrome Restrictive lung disease secondary to chest wall weakness and body habitus Acute Diastolic congestive heart failure. Other lung etiologies need to be ruled out after adequate diuresis. CKD stage 4 Coronary artery disease status post CABG. Diabetes mellitus type 2. Bilateral pleural effusion Essential hypertension UTIs status post bilateral kidney stents PLAN Oxygen therapy to keep sat O2 above 90%. NIV as needed Arterial blood gas that was done on 3 L/min nasal cannula showed PaCO2 of 58 confirming chronic hypercapnia. The hypercapnia is secondary to obesity hypoventilation syndrome and unlikely to be related to ALEJANDRA.Patient may or may not have ALEJANDRA however it should not contribute to this degree of hypercapnia. She will benefit from BiPAP at night The patient requires positive ventilation at night due to the severity of the disease, weak breathing muscles and potential life-threatening condition including CO2 retention, the patient also requires ventilation to be used during the day as needed in addition to every night use age with face mask. Discussed ordering NIV at home. Patient is agreeable. Nocturnal pulse oximetry trend off BiPAP tonight. Diuresis per Nephrology. Lower extremity ultrasound is negative for DVT. Finished Levaquin course Patient will need pulmonary function test as outpatient Discussed plan of care with RN at the bedside. SUBJECTIVE Patient tolerated NIV well overnight FiO2 of 40% and satting 100%. She is down to 3 L/min nasal cannula. VITALS BP 155/58 Pulse 83 Temp 36.7 ??C (98 ??F) (Oral) Resp 17 Ht 149.9 cm (4' 11 ) Wt 79 kg (174 lb 2.6 oz) LMP (LMP Unknown) SpO2 100% BMI 35.18 kg/m?? Last 3 Weight Readings 05/08/25199905/11/25 0541 Weight: 77.6 kg (171 lb 1.2 oz) 79 kg (174 lb 2.6 oz) Resp Readings from Last 3 Encounters: 05/11/25 17 PF Readings from Last 3 Encounters: No data found for PF @LASTSAO2(3)@ Exam Physical Exam Constitutional She is oriented to person, place, and time. She appears well- developed and well-nourished. No distress. Eyes: EOM are normal. Pupils are equal, round, and reactive to light. Pulmonary/Chest: Effort normal. She has rales. Abdominal: Bowel sounds are normal. Soft. Musculoskeletal: General: Edema present. Neurological She is alert and oriented to person, place, and time. Skin: Skin is warm and dry. Meds Medications Reviewed. Scheduled Meds: atorvastatin, 10 mg, oral, Nightly carvediloL, 3.125 mg, oral, BID darbepoetin reginald (ARANESP) injection, 60 mcg, subcutaneous, Weekly diclofenac sodium, 2 g, topical, 4x Daily furosemide, 80 mg, intravenous, Q8H REBA gabapentin, 300 mg, oral, BID heparin (porcine), 5,000 Units, subcutaneous, Q12H REBA ipratropium-albuteroL, 3 mL, nebulization, Q6H sodium chloride, 3 mL, intravenous, Q12H REBA Continuous Infusions: dextrose 5 % in water, 100 mL/hr PRN Meds: acetaminophen calcium gluconate calcium gluconate calcium gluconate dextrose dextrose 5 % in water dextrose 50 % in water (D50W) glucagon (human recombinant) magnesium sulfate magnesium sulfate ondansetron potassium chloride OR potassium chloride OR potassium chloride IV (Adult) sennosides-docusate sodium sodium phosphate IV OR sodium phosphate IV - central line OR sod phos di, mono-K phos mono sodium chloride sodium chloride Lab Results LABs: Results from last 7 days Lab Units 05/11/2552405/10/25 0548 05/09/25 0556 WBC x10E9/L 9.0 7.7 6.3 HEMOGLOBIN g/dL 8.7* 8.7* 8.7* HEMATOCRIT % 26.3* 26.3* 26.5* PLATELETS X10E9/L 189 197 219 Results from last 7 days Lab Units 05/11/2552405/10/25 0548 05/09/25 0556 POTASSIUM mmol/L 3.9 4.1 4.0 CHLORIDE mmol/L 90* 90* 92* CO2 mmol/L 36* 36* 37* BUN mg/dL 71* 68* 65* CREATININE mg/dL 2.00* 1.90* 1.86* CALCIUM mg/dL 8.9 9.1 9.1 Intake/Output last 3 shifts: I/O last 3 completed shifts: In: 240 [P.O.:240] Out: 1830 [Urine:1830] Intake/Output this shift: I/O this shift: In: - Out: 175 [Urine:175] Radiology CT of the abdomen shows bilateral pleural effusion with adjacent atelectasis bilaterally. She had CT chest on 05/02/2025 that showed cardiomegaly and bilateral increased interstitial marking with bilateral pleural effusion. Mery Couch MD [facility] This note was completed with the assistance of a speech- recognition system. Every effort was made to ensure accuracy. However, inadvertent computerized journeyman lineman errors may be present and no guarantees can be provided that every mistake has been identified and corrected by editing. * Guy Drummond MD - 05/10/2025 7:23 PM EDT Images from the original note were not included. [facility] Progress Note 05/10/2025 Patient Name: Lexi Cm : 1945 Hospital Day: 3 SUBJECTIVE Follow-up for shortness of breath. The patient seen and examined. No acute events over night. Reports less shortness for breath compared to the last few days. Denies abdominal pain or flank pain. Denies fevers and chills OBJECTIVE Vital Signs: Temp: [36.4 ??C (97.6 ??F)-37.1 ??C (98.8 ??F)] 36.8 ??C (98.3 ??F) Pulse: [65-92] 92 Resp: [14-25] 19 BP: (107-140)/(47-109) 140/75 FiO2 (%): [40 %] 40 % SpO2: [99 %-100 %] 100 % O2 Device: Nasal cannula O2 Flow Rate (L/min): [3 L/min] 3 L/min Weight: Body mass index is 34.55 kg/m??. Admission weight: 77.6 kg (171 lb 1.2 oz) Wt Readings from Last 3 Encounters: 05/08/25 77.6 kg (171 lb 1.2 oz) Input/Output: Intake/Output Summary (Last 24 hours) at 05/10/2025 1923 Last data filed at 05/10/2025 1529 Gross per 24 hour Intake -- Output 1080 ml Net -1080 ml Physical Exam: General appearance: Alert, cooperative, no distress. Eyes: PERRLA, EOM's intact Conjunctiva/corneas moist and clear, no pallor or icterus. ENT: Oropharynx clear with moist mucous membranes and no mucosal ulcerations. No thrush. External ears and nose are normal without lesions or scars. Respiratory: Normal work of breathing. No use of accessory muscles. Diffuse inspiratory coarse crackles. No wheezing or rhonchi. Cardiovascular: Regular rate and rhythm, S1, S2 normal, no murmur, rub or gallop. No LE edema. Abdomen: Soft, non-tender, no masses. No hernia. No hepatosplenomegaly. Skin: No rashes, lesions or ulcers. No induration or subcutaneous nodules. Psychiatric: Mood and affect appropriate, Appropriate judgment and insight. Alert and oriented. Labs/Imaging: Recent Results (from the past 24 hours) Sodium, urine, random Collection Time: 05/09/25 11:14 PM Specimen: Urine, Indwelling Catheter Result Value Ref Range URINE SODIUM,RANDOM 52 mmol/L Urinalysis Collection Time: 05/09/25 11:14 PM Specimen: Urine, Indwelling Catheter Result Value Ref Range COLOR Yellow Yellow TURBIDITY Hazy (A) Clear SPECIFIC GRAVITY 1.013 1.003 - 1.035 NITRITE Negative Negative PH,URINE 6.0 5.0 - 8.5 LEUKOCYTE ESTERASE Large (A) Negative PROTEIN 70 mg/dL (A) Negative KETONES (URINE) Negative Negative UROBILINOGEN <1.1 eu/dL <1.1 eu/dL BILIRUBIN (URINE) Negative Negative BLOOD/HGB Negative Negative HYALINE CASTS 6 (H) 0 - 2 MUCOUS Present (A) None R.B.CELLS 2 0 - 5 SQUAMOUS EPITHELIUM 1 0 - 5 W.B.CELLS 75 (H) 0 - 5 GLUCOSE (URINE) Negative Negative Urine protein creatinine ratio Collection Time: 05/09/25 11:14 PM Specimen: Urine, Indwelling Catheter Result Value Ref Range URINE PROTEIN, RANDOM (MG/L) 1,090 (H) <120 mg/L URINE CREATININE,RDM 50.82 mg/dL U/PRO/MANAGER [employer]SE RATIO CALC 2.14 (H) <=0.20 Narrative Nephrotic Syndrome is associated with ratios >3.5 Urine Creatinine,random Collection Time: 05/09/25 11:14 PM Specimen: Urine, Indwelling Catheter Result Value Ref Range URINE CREATININE,RDM 50.82 mg/dL Basic Metabolic Panel Collection Time: 05/10/25 5:48 AM Result Value Ref Range SODIUM 135 134 - 146 mmol/L POTASSIUM 4.1 3.5 - 5.0 mmol/L CHLORIDE 90 (L) 98 - 109 mmol/L CARBON DIOXIDE 36 (H) 22 - 32 mmol/L ANION GAP 9 5 - 15 mmol/L BLOOD UREA NITROGEN 68 (H) 5 - 27 mg/dL CREATININE 1.90 (H) 0.40 - 1.00 mg/dL GLUCOSE 177 (H) 65 - 99 mg/dL CALCIUM 9.1 8.5 - 10.5 mg/dL EGFR Non-Race Dependent 27 (L) >=60 ml/min/1.73sq.m CBC auto differential Collection Time: 05/10/25 5:48 AM Result Value Ref Range WBC 7.7 4 - 11 x10E9/L RBC Count 2.73 (L) 3.8 - 5.2 X10E12/L Hemoglobin 8.7 (L) 11.7 - 15.5 g/dL Hematocrit 26.3 (L) 35 - 47 % MCV 96 80 - 100 fL MCH 31.7 27 - 34 pg MCHC 33.0 32 - 36 g/dL RDW 18.5 (H) 11.5 - 15 % Platelet Count 197 150 - 450 X10E9/L MPV 8.9 7 - 12 fL Neutrophils % 69.6 % Lymphocytes % 18.3 % Monocytes % 9.2 % Eosinophils % 1.8 % Basophils % 1.1 % Neutrophils Absolute (A) 5.4 1.5 - 6.6 10*3/uL Lymphocytes Absolute 1.4 1.0 - 3.5 10*3/uL Monocytes Absolute 0.7 0.0 - 0.9 10*3/uL Eosinophils Absolute 0.1 0.0 - 0.4 10*3/uL Basophils Absolute 0.1 0.0 - 0.2 10*3/uL Differential Type AUTOMATED DIFFERENTIAL Magnesium Collection Time: 05/10/25 5:48 AM Result Value Ref Range MAGNESIUM 2.0 1.8 - 2.6 mg/dL Blood Gas, Arterial Collection Time: 05/10/25 9:09 AM Result Value Ref Range Sample type ARTERIAL pH, Arterial 7.445 7.350 - 7.450 pCO2, Arterial 58.9 (H) 35.0 - 45.0 mmHg PO2, Arterial 98 80 - 100 mmHg Base, Excess 14.0 (H) 0.0 - 2.0 mmol/L HCO3, Arterial 40.5 (H) 22.0 - 26.0 mmol/L %O2 Saturation, Arterial 98.0 >90.0 % Marcos's test Pass SPO2 100 % Sample site R Rad Insp. O2 conc. 28 % Source Of Oxygen NC Microbiology Results Procedure Component Value Units Date/Time Urine Culture Urine, Indwelling Catheter [[id number]] Collected: 05/09/25 2314 Specimen: Urine, Indwelling Catheter Updated: 05/10/25 0439 Echo complete W/ contrast Result Date: 05/10/2025 Left Ventricle: Left ventricle appears normal in size. There is moderate focal basal increased wallthickness/hypertrophy. Remaining wall segments are normal. Systolic function is mildly to moderately decreased with an ejection fraction of 40-45%. Right Ventricle: Right ventricular size appears normal. Systolic function is low normal. Left Atrium: Left atrium is mildly dilated. Left atrium volumeindex is mildly increased. The left atrial volume index is 31.6 mL/m2. Mitral Valve: There is mild to moderate regurgitation. There is mild stenosis. The mean gradient is 5.00 mmHg. The peak gradientis 9.24 mmHg. Tricuspid Valve: There is mild to moderate regurgitation. The right ventricular systolic pressure is mildly elevated. RVSP calculated at 46 mmHg. Vas venous duplex lwr bilateral Result Date: 05/10/2025 Right: Portable lower extremity deep vein thrombosis (DVT) exam performed. Common femoral, femoral,popliteal and deep calf muscle veins are compressible without intraluminal content. Spontaneous, common femoral, femoral and popliteal spectral Doppler signals. Evaluation of superficial veins was not performed. Left: Portable lower extremity deep vein thrombosis (DVT) exam performed. Common femoral, femoral, popliteal and deep calf muscle veins are compressible without intraluminal content. Spontaneous, common femoral, femoral and popliteal spectral Doppler signals. Evaluation of superficial veins was not performed. Conclusions: BILATERAL:NO EVIDENCE of deep vein thrombosis of the lower extre mity as stated above. Evaluation of superficial veins was not performed. Recommendations: Any questions prior to finalization, please call the reading physician during normal business hours at the phone number beside their name. All available laboratory, imaging, and microbiology data has been personally reviewed in detail, and accessible in full per EMR. Medications: atorvastatin, 10 mg, oral, Nightly carvediloL, 3.125 mg, oral, BID darbepoetin reginald (ARANESP) injection, 60 mcg, subcutaneous, Weekly diclofenac sodium, 2 g, topical, 4x Daily furosemide, 80 mg, intravenous, Q8H REBA gabapentin, 300 mg, oral, BID heparin (porcine), 5,000 Units, subcutaneous, Q12H REBA ipratropium-albuteroL, 3 mL, nebulization, Q6H sodium chloride, 3 mL, intravenous, Q12H REBA Infusion: dextrose 5 % in water, 100 mL/hr PRN medications: acetaminophen calcium gluconate calcium gluconate calcium gluconate dextrose dextrose 5 % in water dextrose 50 % in water (D50W) glucagon (human recombinant) magnesium sulfate magnesium sulfate ondansetron potassium chloride OR potassium chloride OR potassium chloride IV (Adult) sennosides-docusate sodium sodium phosphate IV OR sodium phosphate IV - central line OR sod phos di, mono-K phos mono sodium chloride sodium chloride ASSESSMENT and plan: Active Hospital Problems Diagnosis Date Noted Respiratory failure ([facility]) 05/08/2025 Acute exacerbation of CHF (congestive heart failure) ([facility]) 05/08/2025 Resolved Problems No resolved problems to display. - Acute hypoxic respiratory failure requiring NIPPV- now on 3L O2 NC: - LLL community acquired pneumonia/ Aspiration pneumonia: - Acute on chronic HFpEF (TTE EF 55% (05/02/25): - B/l Pleural effusions: - BNP at OSH was 11,105. - On 2L NC - Finish IV Levofloxacin 05/09/25 - Lasix 80 mg IV TID. Strict I/O and daily weight. Monitor kidney function and electrolytes. 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 Plans for L percutaneous nephrostomy tube with IR and possible nephroureteral catheter placement - CAD s/p CABG: - Primary HTN: - PAD: - Aspirin 81 mg p.o. daily, Lipitor 10 mg p.o. q.h.s., Plavix 75 mg p.o. daily - Coreg 3.125 mg p.o. b.i.d.. - SUSAN on CKD IV, resolved - Hyponatremia, resolved - Hyperkalemia, resvoled - Monitor. - Recent left hip fracture S/p surgical fixation 03/21/2025 PT/OT. DVT prophylaxis: SCDs. Heparin 5000 units SQ BID. Code Status: Full code. Disposition: [facility] Guy Drummond MD [facility] * Yomi Cooley, DO - 05/10/2025 11:43 AM EDT Images from the original note were not included. NEPHROLOGY PROGRESS NOTE Assessment Chronic kidney disease stage 4 with baseline creatinine unknown presented with serum creatinine of 1.8 mg/dL, renal function ranging between 1.8-1.9 mg/dL. Bilateral hydronephrosis with history of chronic right retroperitoneal fibrosis with bilateral stent exchanges most recent stent exchange 03/2025, urology following recommending placement of left percutaneous nephrostomy tube by interventional Radiology, with plans of potential bilateral ureteral stent removal. Patient is currently on Plavix which will need to be held. Acute on chronic heart failure, on IV diuretics, EF of 40-45% Hypertension, blood pressure currently controlled Diabetes mellitus type 2 management per primary Anemia of chronic disease iron replete Acute hypoxic respiratory failure on non-rebreather Metabolic encephalopathy, improved Plan Continue Lasix 80 mg IV t.i.d. Renal panel daily Strict I&Os Continue fluid and salt restriction Appreciate urology and IR input Interval history Patient seen examined at bedside. Hemodynamically stable. On non-rebreather. 1.8 L of urine output documented over the last 24 hours. Problem List Chronic kidney disease stage 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 Renal serologies from 05/09/2025 showing negative MPO PR3 antibody negative VIVEK normal complements normal free light chain ratio, urinalysis showing 6 hyaline casts large leukocyte esterase 70 protein. Urine protein creatinine ratio of 2.1 g.SPEP pending. 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 Bilateral ureteral stents for bilateral hydronephrosis for which she gets stents exchange every 3 months Hypertension Diabetes mellitus type 2 Hyperlipidemia Neuropathy Gout Coronary artery disease status post CABG x3 in 2017 Abdominal aortic aneurysm repair Echocardiogram performed 05/10/2025 showing left ventricle size normal with increase hypertrophy noted. Systolic function decreased with EF of 40-45%. Right ventricle size normal systolic function low normal. Jwst-ot-mihjfhuw mitral regurgitation twyu-ym-ecqcicps tricuspid regurgitation elevated RVSP of 46 mmHg. Physical Exam Admission Weight: Weight: 77.6 kg (171 lb 1.2 oz) I/O last 3 completed shifts: In: 326.2 [P.O.:220; I.V.:9.7; IV Piggyback:96.5] Out: 1730 [Urine:1730] Weight change: Wt Readings from Last 3 Encounters: 05/08/25 77.6 kg (171 lb 1.2 oz) Vitals: Vitals: 05/10/25 0600 05/10/25 0722 05/10/25 0742 05/10/25 0800 BP: 116/55 107/65 (!) 133/109 Pulse: 73 70 74 76 Resp: 18 15 18 25 Temp: 36.7 ??C (98 ??F) TempSrc: Axillary SpO2: 100% 100% 100% 99% Weight: Height: General: Alert, oriented x 3 and in no obvious distress Psychiatric: Has a normal mood and affect. HEENT: Head normocephalic. Eyes: Conjunctivae and EOM are normal. Pupils are equal, round and reactive to light. Cardiovascular: Normal rate, regular rhythm and normal heart sounds. No JVD. Pulmonary/Chest: Air entry bilaterally equal. No wheezes or rales. Abdominal: Soft, bowel sounds are normal and there was no tenderness rebound or guarding. Musculoskeletal: Normal range of motion. No tenderness. Neurological: No obvious deficits. Skin: No rash noted. Extremities: +2 pitting edema bilaterally Meds: Current Meds: atorvastatin, 10 mg, oral, Nightly carvediloL, 3.125 mg, oral, BID furosemide, 80 mg, intravenous, Q8H REBA gabapentin, 300 mg, oral, BID heparin (porcine), 5,000 Units, subcutaneous, Q12H REBA ipratropium-albuteroL, 3 mL, nebulization, Q6H sodium chloride, 3 mL, intravenous, Q12H REBA Continuous Infusions: dextrose 5 % in water, 100 mL/hr Laboratory Studies Results from last 7 days Lab Units 05/10/25 0548 05/09/25 0556 SODIUM mmol/L 135 137 POTASSIUM mmol/L 4.1 4.0 CHLORIDE mmol/L 90* 92* CO2 mmol/L 36* 37* BUN mg/dL 68* 65* CREATININE mg/dL 1.90* 1.86* CALCIUM mg/dL 9.1 9.1 MAGNESIUM mg/dL 2.0 -- Results from last 7 days Lab Units 05/10/25 0548 05/09/25 0556 WBC x10E9/L 7.7 6.3 HEMOGLOBIN g/dL 8.7* 8.7* HEMATOCRIT % 26.3* 26.5* PLATELETS X10E9/L 197 219 Results from last 7 days Lab Units 05/10/25 0548 MAGNESIUM mg/dL 2.0 Lab Results Component Value Date CALCIUM 9.1 05/10/2025 Lab Results Component Value Date IRON 55 05/09/2025 TIBC 237 (L) 05/09/2025 FERRITIN 133 05/09/2025 Please contact me at [phone] (Office) or [phone] (Answering service) with any questions. Yomi Cooley DO [facility] This note was created with the assistance of a speech-recognition program. Although the intention is to generate a document that actually reflects the content of the visit, no guarantees can be provided that every mistake has been identified and corrected by editing. * Mery Couch MD - 05/10/2025 8:32 AM EDT Images from the original note were not included. [facility] Progress Note Patient - Lexi Cm Age - 79 y.o. - 1945 Date of Admission - 05/08/2025 8:24 PM Reason for Consultation: Respiratory failure ASSESSMENT Acute respiratory failure hypoxia and hypercapnia secondary to acute diastolic heart failure. Most likely Obesity hypoventilation syndrome Acute Diastolic congestive heart failure. Other lung etiologies need to be ruled out after adequate diuresis. CKD stage 4 Coronary artery disease status post CABG. Diabetes mellitus type 2. Bilateral pleural effusion Essential hypertension UTIs status post bilateral kidney stents PLAN Oxygen therapy to keep sat O2 above 90%. NIV as needed Arterial blood gas to see her baseline PaCO2 Continue diuresis. Lower extremity ultrasound. Finished Levaquin course Patient will need pulmonary function test as outpatient in addition to sleep study. Discussed plan of care with RN at the bedside. SUBJECTIVE Patient tolerated NIV well overnight FiO2 of 40% and satting 100%. She is down to 3 L/min nasal cannula. VITALS BP 107/65 Pulse 74 Temp 36.7 ??C (98 ??F) (Axillary) Resp 18 Ht 149.9 cm (4' 11 ) Wt 77.6kg (171 lb 1.2 oz) LMP (LMP Unknown) SpO2 100% BMI 34.55 kg/m?? Last 3 Weight Readings 05/08/251999 Weight: 77.6 kg (171 lb 1.2 oz) Resp Readings from Last 3 Encounters: 05/10/25 PF Readings from Last 3 Encounters: No data found for PF @LASTSAO2(3)@ Exam Physical Exam Constitutional She is oriented to person, place, and time. She appears well- developed and well-nourished. No distress. Eyes: EOM are normal. Pupils are equal, round, and reactive to light. Pulmonary/Chest: Effort normal. She has rales. Abdominal: Bowel sounds are normal. Soft. Musculoskeletal: General: Edema present. Neurological She is alert and oriented to person, place, and time. Skin: Skin is warm and dry. Meds Medications Reviewed. Scheduled Meds: atorvastatin, 10 mg, oral, Nightly carvediloL, 3.125 mg, oral, BID furosemide, 80 mg, intravenous, Q8H REBA gabapentin, 300 mg, oral, BID heparin (porcine), 5,000 Units, subcutaneous, Q12H REBA ipratropium-albuteroL, 3 mL, nebulization, Q6H sodium chloride, 3 mL, intravenous, Q12H REBA Continuous Infusions: dextrose 5 % in water, 100 mL/hr PRN Meds: calcium gluconate calcium gluconate calcium gluconate dextrose dextrose 5 % in water dextrose 50 % in water (D50W) glucagon (human recombinant) magnesium sulfate magnesium sulfate ondansetron potassium chloride OR potassium chloride OR potassium chloride IV (Adult) sennosides-docusate sodium sodium phosphate IV OR sodium phosphate IV - central line OR sod phos di, mono-K phos mono sodium chloride sodium chloride Lab Results LABs: Results from last 7 days Lab Units 05/10/25 0548 05/09/25 0556 WBC x10E9/L 7.7 6.3 HEMOGLOBIN g/dL 8.7* 8.7* HEMATOCRIT % 26.3* 26.5* PLATELETS X10E9/L 197 219 Results from last 7 days Lab Units 05/10/25 0548 05/09/25 0556 POTASSIUM mmol/L 4.1 4.0 CHLORIDE mmol/L 90* 92* CO2 mmol/L 36* 37* BUN mg/dL 68* 65* CREATININE mg/dL 1.90* 1.86* CALCIUM mg/dL 9.1 9.1 Intake/Output last 3 shifts: I/O last 3 completed shifts: In: 326.2 [P.O.:220; I.V.:9.7; IV Piggyback:96.5] Out: 1730 [Urine:1730] Intake/Output this shift: I/O this shift: In: - Out: 200 [Urine:200] Radiology CT of the abdomen shows bilateral pleural effusion with adjacent atelectasis bilaterally. She had CT chest on 05/02/2025 that showed cardiomegaly and bilateral increased interstitial marking with bilateral pleural effusion. Mery Couch MD [facility], Critical [facility] and Sleep This note was completed with the assistance of a speech- recognition system. Every effort was made to ensure accuracy. However, inadvertent computerized journeyman lineman errors may be present and no guarantees can be provided that every mistake has been identified and corrected by editing. * Meghan Pires MD - 05/10/2025 7:33 AM EDT Images from the original note were not included. Jr. Lemuel, J Carlos Landeros., David Forrest M.D., Phillip Eubanks M.D., Conchita Pollack M.D., Denae Castañeda M.D., Baudilio Pino M.D., Mikal Laws M.D., Pratik Ruiz M.D, Orestes Winter M.D. Hospital day: 2 Subjective: Patient has remained stable overnight. No acute events were reported. Afebrile and vital signs stable. Awaiting percutaneous nephrostomy placement. Latest labs as follows. Results from last 7 days Lab Units 05/10/25 0548 05/09/25 0556 CREATININE mg/dL 1.90* 1.86* WBC x10E9/L 7.7 6.3 HEMOGLOBIN g/dL 8.7* 8.7* Weight: 77.6 kg (171 lb 1.2 oz) Patient Vitals for the past 24 hrs: BP Temp Temp src Pulse Resp SpO2 Height 05/10/25 0722 107/65 36.7 ??C (98 ??F) Axillary 70 15 100 % -- 05/10/25 0600 116/55 -- -- 73 18 100 % -- 05/10/25 0330 119/54 36.8 ??C (98.3 ??F) Axillary 67 16 100 % -- 05/10/25 0303 -- -- -- 65 14 100 % -- 05/10/25 0200 116/47 -- -- 66 -- 100 % -- 05/09/25 2313 113/47 36.6 ??C (97.9 ??F) Axillary 73 -- 100 % -- 05/09/25 2203 117/60 -- -- 69 -- -- -- 05/09/25 2110 -- -- -- -- 21 -- -- 05/09/25 1937 122/59 36.4 ??C (97.6 ??F) Axillary 86 -- 100 % -- 05/09/25 1700 -- -- -- -- -- -- 149.9 cm (4' 11 ) 05/09/25 1640 146/69 37 ??C (98.6 ??F) Oral 86 15 100 % -- 05/09/25 1434 -- -- -- 82 17 100 % -- 05/09/25 1118 131/55 36.7 ??C (98 ??F) Oral 75 14 100 % -- 05/09/25 0829 -- -- -- 74 -- 100 % -- 05/09/25 0819 -- -- -- 73 -- 100 % -- 05/09/25 0808 124/56 -- -- 77 -- 100 % -- Intake/Output Summary (Last 24 hours) at 05/10/2025 0733 Last data filed at 05/10/2025 0723 Gross per 24 hour Intake 120 ml Output 1380 ml Net -1260 ml Lab Results Component Value Date SPECIFICGRA 1.013 05/09/2025 LEUKOCYTE Large (A) 05/09/2025 GLU 177 (H) 05/10/2025 UROBILINOGEN <1.1 eu/dL 05/09/2025 Additional Lab/culture results: Microbiology Results Procedure Component Value Units Date/Time Urine Culture Urine, Indwelling Catheter [[id number]] Collected: 05/09/254 Specimen: Urine, Indwelling Catheter Updated: 05/10/25 0439 Physical Exam: BP 107/65 Pulse 70 Temp 36.7 ??C (98 ??F) (Axillary) Resp 15 Ht 149.9 cm (4' 11 ) Wt 77.6kg (171 lb 1.2 oz) LMP (LMP Unknown) SpO2 100% BMI 34.55 kg/m?? General Appearance: awake, alert; no acute distress. Pulmonary: unlabored breathing, saturating >93% on room air. Cardiac: regular rate and rhythm, normotensive. Abdomen: soft, non-tender, non-distended Neuro: alert and oriented x3; no focal neurologic deficits. Skin: warm, dry Interval Imaging Findings: No results found. Impression: 79 y.o. female 1. [facility] resident Established patient urologist Dr. Freddie Natarajan, [facility] area, managed for chronic retroperitoneal fibrosis with bilateral stent exchanges most recently March 2025with inability to remove the left ureteral stent at that time secondary to knotting of the left ureteral stent, which was partially excised at the time with plans for subsequent retrieval, but the right exchange was exchange at that time and an additional left stent was placed, Now with migration of the additional left stent and obviously retention of the knotted stent, admitted [facility] 05/08/2025 with hypoxic respiratory failure, acute encephalopathy, history febrile UTI, and history CHF, diabetes, CABG, and bilateral pleural effusions with stage 4 chronic kidney disease creatinine 1.86 2. Bilateral renovascular calcifications 3. Anemia hemoglobin 8.7 with Plavix, aspirin use 4. By history Klebsiella UTI Plan: Follow up on urine culture Continue IV antibiotics Follow up on left PND placement, preferably nephroureteral catheter placement with simultaneous or subsequent retrieval of both ureteral stents if feasible Recommend to hold Plavix or aspirin if medically possible in anticipation of nephrostomy tube placement Rest of care per primary team Meghan Pires MD Urology Resident, PGY-2 05/10/2025 Cosigned by Tigre Hdez Jr., MD at 05/10/2025 9:00 AM EDT Associated attestation - Tigre Hdez Jr., MD - 05/10/2025 9:00 AM EDT Attending Attestation: I saw the patient. I participated and was physically present during the critical/nolan portions of the service. I was directly involved in the management and treatment plan of the patient. I reviewed the resident's note. Additional Notes/Findings: Pulmonary provider note reviewed and appreciated. Clear jesus urine Tovar catheter. Creatinine 1.9. Impressions: 1. [facility] resident Established patient urologist Dr. Freddie Natarajan, [facility], managed for chronic retroperitoneal fibrosis with bilateral stent exchanges most recently March 2025with inability to remove the left ureteral stent at that time secondary to knotting of the left ureteral stent, which was partially excised at the time with plans for subsequent retrieval, but the right exchange was exchange at that time and an additional left stent was placed, Now with migration of the additional left stent and obviously retention of the knotted stent, admitted [facility] 05/08/2025 with hypoxic respiratory failure, acute encephalopathy, history febrile UTI, and history CHF, diabetes, CABG, and bilateral pleural effusions with stage 4 chronic kidney disease creatinine 1.86 2. Bilateral renovascular calcifications 3. Anemia hemoglobin 8.7 with Plavix, aspirin use 4. By history Klebsiella UTI Recommendations: 1. Urine cultures 2. IV antibiotic 3. Placement of left percutaneous nephrostomy tube by Interventional Radiology with consideration for nephroureteral catheter and likely subsequent or if preferred simultaneous retrieval of both ureteral stents if possible 4. Attention to anemia and other issues per primary services. 5. Preferably hold Plavix/aspirin prior to nephrostomy tube placement We will return to see the patient . Likely she will not have nephrostomy tube placed and other intervention until then secondary to desire to hold Plavix and preferably aspirin. We will wish to discuss the nephrostomy tube placement and related procedures with the interventional radiologistgiven the complexity of this case. Patient will then return subsequently to Dr. Natarajan for follow up care. Thank you very much. I appreciate being asked to help with this patient's care. Tigre Hdez Jr., M.D. [facility] [phone] * Jenny Brown MD - 05/09/2025 9:39 AM EDT [facility] Progress Note 05/09/2025 Patient Name: Lexi Cm : 1945 Hospital Day: 2 SUBJECTIVE Follow-up for shortness of breath. The patient seen and examined. No acute events over night. Reports less shortness for breath compared to the last few days. No chest pain. No fevers or chills. No flank pain. Son was present at the bedside. OBJECTIVE Vital Signs: Temp: [35.9 ??C (96.7 ??F)-37.4 ??C (99.4 ??F)] 36.6 ??C (97.8 ??F) Pulse: [59-82] 74 Resp: [11-22] 21 BP: (124-158)/(53-72) 124/56 FiO2 (%): [44 %-45 %] 44 % SpO2: [90 %-100 %] 100 % O2 Device: Nasal cannula O2 Flow Rate (L/min): [3 L/min-6 L/min] 3 L/min Weight: Body mass index is 34.4 kg/m??. Admission weight: 77.6 kg (171 lb 1.2 oz) Wt Readings from Last 3 Encounters: 05/08/25 77.6 kg (171 lb 1.2 oz) Input/Output: Intake/Output Summary (Last 24 hours) at 05/09/2025 0939 Last data filed at 05/09/2025 0352 Gross per 24 hour Intake 206.24 ml Output 550 ml Net -343.76 ml Physical Exam: General appearance: Alert, cooperative, no distress. Eyes: PERRLA, EOM's intact Conjunctiva/corneas moist and clear, no pallor or icterus. ENT: Oropharynx clear with moist mucous membranes and no mucosal ulcerations. No thrush. External ears and nose are normal without lesions or scars. Respiratory: Normal work of breathing. No use of accessory muscles. Diffuse inspiratory coarse crackles. No wheezing or rhonchi. Cardiovascular: Regular rate and rhythm, S1, S2 normal, no murmur, rub or gallop. No LE edema. Abdomen: Soft, non-tender, no masses. No hernia. No hepatosplenomegaly. Skin: No rashes, lesions or ulcers. No induration or subcutaneous nodules. Psychiatric: Mood and affect appropriate, Appropriate judgment and insight. Alert and oriented. Labs/Imaging: Recent Results (from the past 24 hours) Bedside Glucose *Place/Obtain serum glucose if >500 per glucometer. Collection Time: 05/08/25 9:36 PM Result Value Ref Range Bedside Glucose (POC) 131 (H) 65 - 99 mg/dL Comprehensive metabolic panel Collection Time: 05/09/25 5:56 AM Result Value Ref Range SODIUM 137 134 - 146 mmol/L POTASSIUM 4.0 3.5 - 5.0 mmol/L CHLORIDE 92 (L) 98 - 109 mmol/L CARBON DIOXIDE 37 (H) 22 - 32 mmol/L ANION GAP 8 5 - 15 mmol/L BLOOD UREA NITROGEN 65 (H) 5 - 27 mg/dL CREATININE 1.86 (H) 0.40 - 1.00 mg/dL GLUCOSE 102 (H) 65 - 99 mg/dL CALCIUM 9.1 8.5 - 10.5 mg/dL TOTAL PROTEIN 5.7 (L) 6.0 - 8.0 g/dL ALBUMIN 3.0 (L) 3.2 - 5.3 g/dL ALKALINE PHOSPHATASE 57 39 - 130 U/L AST 10 <=41 U/L ALT 3 <=31 U/L BILIRUBIN,TOTAL 0.5 0.3 - 1.2 mg/dL EGFR Non-Race Dependent 27 (L) >=60 ml/min/1.73sq.m CBC auto differential Collection Time: 05/09/25 5:56 AM Result Value Ref Range WBC 6.3 4 - 11 x10E9/L RBC Count 2.76 (L) 3.8 - 5.2 X10E12/L Hemoglobin 8.7 (L) 11.7 - 15.5 g/dL Hematocrit 26.5 (L) 35 - 47 % MCV 96 80 - 100 fL MCH 31.6 27 - 34 pg MCHC 32.8 32 - 36 g/dL RDW 17.8 (H) 11.5 - 15 % Platelet Count 219 150 - 450 X10E9/L MPV 8.6 7 - 12 fL Neutrophils % 66.8 % Lymphocytes % 21.4 % Monocytes % 9.0 % Eosinophils % 2.0 % Basophils % 0.8 % Neutrophils Absolute (A) 4.2 1.5 - 6.6 10*3/uL Lymphocytes Absolute 1.4 1.0 - 3.5 10*3/uL Monocytes Absolute 0.6 0.0 - 0.9 10*3/uL Eosinophils Absolute 0.1 0.0 - 0.4 10*3/uL Basophils Absolute 0.1 0.0 - 0.2 10*3/uL Differential Type AUTOMATED DIFFERENTIAL Microbiology Results No results found for the last 168 hours. No results found. All available laboratory, imaging, and microbiology data has been personally reviewed in detail, and accessible in full per EMR. Medications: aspirin, 81 mg, oral, Daily atorvastatin, 10 mg, oral, Nightly carvediloL, 3.125 mg, oral, BID clopidogreL, 75 mg, oral, Daily gabapentin, 300 mg, oral, BID ipratropium-albuteroL, 3 mL, nebulization, Q6H levoFLOXacin, 500 mg, intravenous, Q48H sodium chloride, 3 mL, intravenous, Q12H REBA Infusion: dextrose 5 % in water, 100 mL/hr sodium chloride 0.9 %, 20 mL/hr, Last Rate: Stopped (05/09/25 0348) PRN medications: dextrose dextrose 5 % in water dextrose 50 % in water (D50W) glucagon (human recombinant) ondansetron sennosides-docusate sodium sodium chloride sodium chloride sodium chloride 0.9 % ASSESSMENT and plan: Active Hospital Problems Diagnosis Date Noted Respiratory failure ([facility]) 05/08/2025 Acute exacerbation of CHF (congestive heart failure) ([facility]) 05/08/2025 Resolved Problems No resolved problems to display. - Acute hypoxic respiratory failure requiring NIPPV- now on 3L O2 NC: - LLL community acquired pneumonia/ Aspiration pneumonia: - Acute on chronic HFpEF (TTE EF 55% (05/02/25): - B/l Pleural effusions: - BNP at OSH was 11,105. - Finish IV Levofloxacin today. - Lasix 80 mg IV BID. Strict I/O and daily weight. Monitor kidney function and electrolytes. - Discussed with pulmonology at the bedside. - Acute encephalopathy- resolved: - ESBL Klebsiella UTI (diagnosed before admission): - persistent B/l hydronephrosis duet to retroperitoneal fibrosis s/p b/l ureteral stents exchange 04/12/25 at OSH: - Tovar catheter was placed at OSH 05/02/25 for strict I/O: - Last available urine cultures from OSH (04/28/25): ESBL Klebsiella - Discussed with Urology. We will request Urology notes from outside facility. - Outpatient follow up with Dr. Natarajan (urology) - Maintain Tovar catheter. - CAD s/p CABG: - Primary HTN: - PAD: - Aspirin 81 mg p.o. daily, Lipitor 10 mg p.o. q.h.s., Plavix 75 mg p.o. daily - Coreg 3.125 mg p.o. b.i.d.. - SUSAN on CKD IV: - Stable. - Hyponatremia: - Hyperkalemia: - Monitor. - Recent left hip fracture S/p surgical fixation 03/21/2025 PT/OT. DVT prophylaxis: SCDs. Heparin 5000 units SQ BID. Code Status: Full code. Disposition: To be determined later. The patient was transferred to us from [facility]. Current care plan discussed in detail with the patient and family. They verbalized understanding. Further management will follow based on the clinical course of the patient and results of ongoing evaluation Electronically signed by: JENNY BROWN MD 05/09/2025 Preferred contact method: #1. Epic chat #2. [facility] team pager Available from 7 am to 7 pm For after hours, please page [facility] night team. Disclaimer Note: To increase efficiency, your provider may have prepared this document using voice recognition technology. In that case, if a word or phrase is confusing, or does not make sense, thisis likely due to a recognition error within the program which was not discovered during the provider???s review. If you believe an error has occurred, please notify your provider???s office at your earliest convenience, so we can correct any mistakes. * Sanjana Esteban RPH - 05/09/2025 1:44 AM EDT [facility] Department of Pharmacy Pharmacist to Physician Communication The dose of levofloxacin for UTI (with recent hx of pyelonephritis) has been changed to 500 mg every 48 hours per the [facility] approved renal dosing guidelines, based on an estimated CrCl of 14 mL/min (SCr 2.02 05/08 at OSH) (initial 750 mg dose started at OSH/no load required). Thank you, Sanajna Esteban RPH documented in this encounter H&P Notes * Minerva Rollins MD - 05/08/2025 9:01 PM EDT Images from the original note were not included. [facility] History and Physical 05/08/2025 Patient Name: Lexi Cm : 1945 Chief Complaint Respiratory failure Assessment and Plan Principal Problem: Respiratory failure ([facility]) Active Problems: Acute exacerbation of CHF (congestive heart failure) ([facility]) Acute on chronic hypoxic respiratory failure, multifactorial Heart failure exacerbation, congestive heart failure diastolic, Chronic kidney disease stage 4 Diabetes mellitus with long-term use of insulin Coronary artery disease Hypertension Bilateral kidney stents, with urine cultures came back positive for Klebsiella pneumonia, patient on Levaquin Recent admission for septic shock secondary to pyelonephritis and stents in the ureter were exchanged and was discharged on cefuroxime The pleural effusion and cardiomegaly History of hyponatremia Bypass surgery around 10 years ago Admit the patient, consult Urology, consult Nephrology, consult Pulmonary, patient does have volumeoverload, she patient was getting Lasix, will order blood work and the decides on legs, continue Levaquin due to Klebsiella pneumoniae, continue statin aspirin Coreg Plavix, -Plan of care discussed at length with patient at bedside HPI Lexi Cm is a 79 y.o. female with past medical history significant for 79-year-old female with a history of CKD stage 4( baseline around 2.76) and diastolic Congestive heart failure previous history of ureteral stents presenting with UTI and hypoxic respiratory failure secondary to diastolic Congestive heart failure exacerbation. Pleural effusions preserved ejection fraction. Currently having increased FiO2 requirement. She has been here since May 02 Creatinine 3.2 on admission now 2.02. Repeat CT abdomen-persistent bilateral hydronephrosis right greater than left sided hydronephrosis. Sending hospitalist feels patient will require urology evaluation. He states did not have any nephrology coverage and creatinine has been fluctuating. Transfer for persistent hydronephrosis.Vitals pulse 88/mt, 155/71 mmHg, RR-18/mt ED COURSE ED TRIAGE VITALS ED Triage Vitals Temp Pulse Resp BP SpO2 05/08/25199905/08/25199905/08/25199905/08/25199905/08/251999 37.4 ??C (99.4 ??F) 80 22 158/72 91 % Temp Source Heart Rate Source Patient Position BP Location FiO2 (%) 05/08/25199905/08/25199905/08/25199905/08/25199905/08/25 2040 Oral Monitor Lying supine Right arm 45 % No past medical history on file. No past surgical history on file. Allergy: Patient has no known allergies. Prior to Admission medications Medication Sig Start Date End Date Taking? Authorizing Provider gabapentin (NEURONTIN) 300 mg capsule Take 1 capsule (300 mg total) by mouth 2 (two) times daily [id number] and 1200. Not In System Ref Prov Social History: No family history on file. Review of Systems As per HPI; otherwise reviewed and negative per 10-pt review. Exam BP 158/72 Pulse 82 Temp 37.4 ??C (99.4 ??F) (Oral) Resp 15 Wt 77.6 kg (171 lb 1.2 oz) SpO2 90% No intake or output data in the 24 hours ending 05/08/252100 General Appearance: Well-developed, well-nourished. Alert, cooperative, no acute cardiac or respiratory distress Head: Normocephalic, atraumatic Eyes: PERRL, conjunctiva/corneas clear, EOMI Lungs: normal breath sounds bilaterally; no wheezes, rhonchi, rales, or crackles; respirations unlabored Heart: Regular rate and rhythm, S1 and S2 normal, no murmur Abdomen: Soft, non-tender, bowel sounds active all four quadrants; no rigidity, rebound tenderness,guarding noted Extremities: Extremities normal, Laboratory Data No results found for this or any previous visit (from the past 24 hours). Imaging Imaging has been reviewed in detail and can be seen in full via EMR. Imaging: No results found. No image results found. Electronically signed by: MD Minerva SPENCER M.D. [facility] This note was completed using a voice journeyman lineman system. Every effort was made to ensure accuracy. However, inadvertent computerized journeyman lineman errors may be present.\ documented in this encounter Procedure Notes * Earnest Welch RN - 05/18/2025 11:25 AM EST Midline placement note: Clinician: Melissa Welch RN Prescribed IV therapy: dapto x5 more doses, micafungin q24h, invanz (all through 05/27) History / Labs / Allergies were reviewed prior to insertion Any contraindications/considerations prior to placement: none Approvals required before insertion: ordered by ID Bedside time out performed with nurse Janel RN utilizing two identifiers Midline: Product type: 18 gauge SL Bard powerglide inserted into the right basilic vein Ref: [id number] Lot: [id number] Exp: 05/13/2026 Catheter length 10 cm with 0 cm external Number of attempts: 1 CVR: 38% Dressed per protocol with statlock and CHG tegaderm Following successful completion of procedure, all Midline kit components including sharps were accounted for, intact, and disposed of properly. Midline catheter tip is located at the level of the axilla and was placed with a brisk blood return. Line is immediately released for use. Per facility policy midline is okay for 30 days use but is to be removed due to signs of infiltration / phlebitis / extravasation. Line is to be used as a peripheral catheter with caution for any vesicant administration. Per facility policy and product IFU line is okay for lab draws if a blood return is present. Midline is okay to use if no blood return is present as long as there are no signs/symptoms of infiltration / phlebitis / extravasation including but not limited to leaking and/or redness at the insertion site and pain during infusion. documented in this encounter Consult Notes * Terri Ramos APRN-LICENSING ANALYST - 05/14/2025 9:32 AM EDTAssociated Order(s): IP CONSULT TO INFECTIOUS DISEASES Images from the original note were not included. [facility] - Initial Consult Note Lexi Cm Admit date/time 05/08/2025 8:24 PM Today's Date and Time: 05/14/2025, 9:32 AM Impression: Siobhan glabrata, VRE UTI O[facility] Acute on chronic HFpEF Bilateral pleural effusions Persistent bilateral hydronephrosis due to retroperitoneal fibrosis status post bilateral ureteral stent exchange 04/12/2025 at outside hospital CKD stage 4 Coronary artery disease status post CABG Primary hypertension PAD DM 2 Recent left hip fracture status post surgical fixation 03/21/2025 Recommendations Previous urine culture 04/29/[address] CT abdomen 05/09/2025 Persistent bilateral hydronephrosis right greater than left Urology following - plans for L percutaneous nephrostomy tube and possible stent removal in IR tentatively 05/16 Urine culture 05/10/2025 with Siobhan glabrata, low count VRE Check blood cultures Started on Augmentin on 05/13/2025-discontinue Start ertapenem, daptomycin, micafungin Follow WBC, creatinine, platelets, LFTs, CK total On daptomycin Discharge planning per primary team as based on patient clinical condition Supportive care Reason for consultation: Siobhan Glabrata UTI Chief complaint UTI History of Present Illness: Lexi Cm is a 79 y.o.-year-old female who was initially admitted on 05/08/2025. Patient was initially transferred from outside hospital for UTI, hypoxic respiratory failure. Patient was found to have retroperitoneal fibrosis in March of 2025 and had bilateral stents placed for adequateurinary drainage. Right stent was exchanged in March but the left stent was unable to be exchanged. Patient was readmitted to outside hospital with febrile UTI suspected she was initially placed on meropenem. She is on transferred to [place] for urology consult. [facility] and bilateral atelectasis and CT abdomen Patient seen resting in bed on BiPAP. He has been noted at bedside and history obtained from him. Discussed plan of care. Reports tentative plans for left nephrostomy tube I have personally reviewed the past medical history, past surgical history, medications, social history, and family history, and I have updated the database accordingly. Past Medical History: Past Medical History: Diagnosis Date Acute exacerbation of CHF (congestive heart failure) ([facility]) 05/08/2025 Past Surgical History: History reviewed. No pertinent surgical history. Medications: amoxicillin-pot clavulanate, 1 tablet, oral, Q12H REBA atorvastatin, 10 mg, oral, Nightly bumetanide, 3 mg, intravenous, Q8H REBA carvediloL, 3.125 mg, oral, BID darbepoetin reginald (ARANESP) injection, 60 mcg, subcutaneous, Weekly diclofenac sodium, 2 g, topical, 4x Daily gabapentin, 300 mg, oral, Nightly heparin (porcine), 5,000 Units, subcutaneous, Q12H REBA insulin lispro, 2-10 Units, subcutaneous, TID with meals insulin lispro, 2-8 Units, subcutaneous, Nightly polyethylene glycol, 17 g, oral, Daily senna, 8.6 mg, oral, Nightly sodium chloride, 3 mL, intravenous, Q12H REBA Social History: Social History Socioeconomic History Marital status: Spouse name: Not on file Number of children: Not on file Years of education: Not on file Highest education level: Not on file Occupational History Not on file Tobacco Use Smoking status: Never Smokeless tobacco: Never Substance and Sexual Activity Alcohol use: Never Drug use: Never Sexual activity: Not on file Other Topics Concern Not on file Social History Narrative Not on file Social Drivers of Health Financial Resource Strain: Low Risk (05/09/2025) Overall Financial Resource Strain (CARDIA) Difficulty of Paying Living Expenses: Not hard at all Food Insecurity: No Food Insecurity (05/09/2025) Hunger Screening Food Insecurity - Worry: Never True Food Insecurity - Inability: Never True Transportation Needs: No Transportation Needs (05/09/2025) PRAPARE - Transportation Lack of Transportation (Medical): No Lack of Transportation (Non-Medical): No Physical Activity: Not on file Stress: Not on file Social Connections: Not on file Interpersonal Safety: Not At Risk (05/09/2025) Humiliation, Afraid, Rape, and Kick questionnaire Fear of Current or Ex-Partner: No Emotionally Abused: No Physically Abused: No Sexually Abused: No Housing Instability: Low Risk (05/09/2025) Housing Instability Housing Instability: No Family History: Family History Family history unknown: Yes Allergies: Patient has no known allergies. Review of Systems: Unable to obtain on BiPAP CONSTITUTIONAL: negative EYES: negative HEENT: negative RESPIRATORY: negative CARDIOVASCULAR: negative GASTROINTESTINAL: negative GENITOURINARY: negative INTEGUMENT/BREAST: negative HEMATOLOGIC/LYMPHATIC: negative ALLERGIC/IMMUNOLOGIC: negative ENDOCRINE: negative MUSCULOSKELETAL: negative NEUROLOGICAL: negative BEHAVIOR/PSYCH: negative Physical Examination : BP 132/47 Pulse 80 Temp 36.3 ??C (97.4 ??F) (Oral) Resp 16 Ht 149.9 cm (4' 11 ) Wt 75.3 kg (166 lb 0.1 oz) LMP (LMP Unknown) SpO2 99% BMI 33.53 kg/m?? Temperature Range: Temp: 36.3 ??C (97.4 ??F) Temp Av.8 ??C (98.2 ??F) Min: 36.3 ??C (97.4 ??F)Max: 37.1 ??C (98.8 ??F) CONSTITUTIONAL: Sleepy, on BiPAP EYES:rt and left eyes Lids and lashes normal, sclera clear, conjunctiva normal ENT: Normocephalic, without obvious abnormality, atraumatic, oral pharynx with moist mucus membranes, rt and left ear with no deformity NECK: Supple, symmetrical, trachea midline, no thyroid deformity LUNGS: No increased work of breathing, good air exchange, clear to auscultation bilaterally, no crackles or wheezing CARDIOVASCULAR: regular rate and rhythm, normal S1 and S2, and no murmur noted ABDOMEN: normal bowel sounds, soft, non-distended, non-tender, no masses palpated, no hepatosplenomegally, MUSCULOSKELETAL:both upper and lower extremities with no redness, warmth, or swelling NEUROLOGIC: Unable to assess SKIN: no rash Medical Decision Making: I have independently reviewed/ordered the following labs: CBC with Differential: Results from last 7 days Lab Units 05/14/2551805/13/2590005/12/2554 WBC x10E9/L 9.1 8.3 8.9 HEMOGLOBIN g/dL 9.4* 9.5* 9.1* HEMATOCRIT % 29.2* 29.3* 27.6* PLATELETS X10E9/L 192 177 193 BMP: Results from last 7 days Lab Units 05/14/2551805/13/2590005/12/2554 05/11/2525 POTASSIUM mmol/L 4.2 4.2 4.4 3.9 CHLORIDE mmol/L 88* 89* 89* 90* CO2 mmol/L 37* 41* 36* 36* BUN mg/dL 72* 79* 73* 71* CREATININE mg/dL 1.69* 1.92* 1.87* 2.00* EGFR (CKD-EPI) NON-RACE DEPENDENT ml/min/1.73sq.m 31* 26* 27* 25* CALCIUM mg/dL 9.3 9.8 9.2 8.9 MAGNESIUM mg/dL 2.1 -- 2.1 2.0 LFTs: Results from last 7 days Lab Units 05/14/2551805/13/2532 05/09/25 0556 ALK PHOS U/L 55 53 57 ALT U/L <3 <3 3 AST U/L 14 12 10 Vanco: Inflam markers: No results found for: CRP No results found for: SEDRATE Cultures: Microbiology Results Procedure Component Value Units Date/Time Urine Culture Urine, Indwelling Catheter [[id number]] (Abnormal) Collected: 05/09/252313 Specimen: Urine, Indwelling Catheter Updated: 05/13/25924 CULTURE RESULTS >100,000 CFU/mL Siobhan glabrata 10,000-50,000 CFU/mL Enterococcus species Narrative: Urine received without preservative - delays in transport may affect results. Interpret with caution and clinical correlation is recommended. Imaging Studies: CT brain without contrast Result Date: 05/13/2025 Narrative: CT BRAIN WO CONT 05/13/2025 10:33 AM INDICATION: left pupil asymmetry, stroke alert, questionable facial droop COMPARISON: CT brain without contrast 05/02/2025 TECHNIQUE: Serial axial images were obtained on a multidetector CT through the head without the use of intravenous contrast, as p er the standard departmental protocol. Multiplanar 2D MPR reformatted images were then generated. FINDINGS: No acute intracranial hemorrhage, mass effect, shift of midline structures, or abnormal extra axial fluid collection. No evidence of acute large vessel territorial ischemia. Chronic microvascular ischemic changes. Mild to moderate overall brain volume loss. Partial empty sella. Intracranialvascular calcifications. Ventricular system size and morphology are normal, basal cisterns are patent. Bilateral pseudophakia, orbits are symmetric. No depressed or displaced calvarial fracture. Minimal mucosal thickening of the paranasal sinuses. Mastoid air cells are well-aerated. Asymmetric degenerative changes of the right temporomandibular joint. Presumed cerumen within the bilateral external auditory canals. Multiple deep dental caries and periapical lucencies. IMPRESSION: * No acute intracranial findings, by CT. If there is concern for acute infarct, MRI can be considered. * Partially visualized nodules within the bilateral superficial parotid lobes measuring up to 0.9 cm in short axis. These may represent enlarged lymph nodes or primary salivary gland tumor, consider follow-up neck cross-sectional imaging or tissue sampling for definitive diagnosis. * Multiple deep dental cariesand periapical lucencies. Approved by Resident: Jackson Ritter MD on 05/13/2025 10:49 AM ITomer MD have personally reviewed the image(s) and agree with and/or edited the report Workstation:[id number] by Tomer Daily MD on 05/13/2025 11:06 AM X-ray chest 1 view Result Date: 05/12/2025 Narrative: History: monitor if improvement in interstitial edema Exam/Technique: AP chest upright Comparison: 05/08/2025 Findings: Sternotomy wires. Congested lungs effusions. IMPRESSION: Likely overload state. Low lung volumes. Finalized by Hugo Aquino MD on 05/12/2025 12:59 PM Echo complete W/ contrast Result Date: 05/10/2025 Narrative: Left Ventricle: Left ventricle appears normal in size. There is moderate focal basal increased wall thickness/hypertrophy. Remaining wall segments are normal. Systolic function is mildly to moderately decreased with an ejection fraction of 40-45%. Right Ventricle: Right ventricular size appears normal. Systolic function is low normal. Left Atrium: Left atrium is mildly dilated. Left atrium volume index is mildly increased. The left atrial volume index is 31.6 mL/m2. Mitral Valve: There is mild to moderate regurgitation. There is mild stenosis. The mean gradient is 5.00 mmHg. The peak gradient is 9.24 mmHg. Tricuspid Valve: There is mild to moderate regurgitation. The right ventricular systolic pressure is mildly elevated. RVSP calculated at 46 mmHg. Vas venous duplex lwr bilateral Result Date: 05/10/2025 Narrative: Right: Portable lower extremity deep vein thrombosis (DVT) exam performed. Common femoral, femoral, popliteal and deep calf muscle veins are compressible without intraluminal content. Spontaneous, common femoral, femoral and popliteal spectral Doppler signals. Evaluation of superficial veins was not performed. Left: Portable lower extremity deep vein thrombosis (DVT) exam performed. Common femoral, femoral, popliteal and deep calf muscle veins are compressible without intraluminal content. Spontaneous, common femoral, femoral and popliteal spectral Doppler signals. Evaluation of superficial veins was not performed. Conclusions: BILATERAL:NO EVIDENCE of deep vein thrombosis of the lower extremity as stated above. Evaluation of superficial veins was not performed. Recommendations: Any questions prior to finalization, please call the reading physician during normal business hours at the phone number beside their name. Thank you for allowing us to participate in the care of this patient. Please call with questions. Terri MAYBERRY [phone] This note was completed using a voice journeyman lineman system. Every effort was made to ensure accuracy. However, inadvertent computerized journeyman lineman errors may be present. SHAWANDA Kang 05/14/25 1410 * Gustavo Enriquez MD - 05/09/2025 12:29 PM EDTAssociated Order(s): Consult Nephrology Images from the original note were not included. Consult Nephrology Consult performed by: Gustavo Enriquez MD Consult ordered by: Minerva Rollins MD NEPHROLOGY CONSULT NOTE Date of Admission: 05/08/2025 8:24 PM Reason for Consult: Chronic kidney disease Referring Provider: Minerva Rollins MD PCP: No primary care provider on file. Chief Complaint: Shortness breath. History of Present Illness: Lexi Cm is a 79 y.o. female who presented with the above chief complaint. The patient is known to have history of chronic kidney disease stage 4 which is likely related to diabetic nephropathy. She has bilateral ureteral stents. She tells me that she gets thosestents exchange every 3 months. The last time they were unable to the volume of 1 of the stents. She did present to the hospital because of worsening shortness breath. She was found to have Congestive Heart Failure exacerbation. CT revealed bilateral hydronephrosis. She was transferred to [facility] for further evaluation management of the bilateral hydronephrosis. The patient other than the shortness breath, denies any chest pain. Denies any fevers or chills. Denies abdominal pain. Denies any pain or burning on urination difficulty passing urine. Denies any history recurrent UTIs or kidney stones. Denies any frequent intake of NSAIDs. Denies any family history of chronic kidney disease or dialysis. Past Medical and Surgical History: Chronic kidney disease stage 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 CPK, serum protein electrophoresis, VIVEK, anti MPO, anti PR3, anti-GBM, C3, C4, urine dipstick, fractional excretion of sodium and urine protein to creatinine ratio are pending. Bilateral ureteral stents for bilateral hydronephrosis for which she gets stents exchange every 3 months Hypertension Diabetes mellitus type 2 Hyperlipidemia Neuropathy Gout Coronary artery disease status post CABG x3 in 2017 Abdominal aortic aneurysm repair Echocardiogram from April of 2025 report is pending Allergies: No Known Allergies Home Meds: Medications Prior to Admission Medication Sig Dispense Refill Last Dose/Taking gabapentin (NEURONTIN) 300 mg capsule Take 1 capsule (300 mg total) by mouth 2 (two) times daily [id number] and 1200. Taking allopurinoL (ZYLOPRIM) 100 mg tablet Take 1 tablet (100 mg total) by mouth in the morning. aspirin 81 mg chewable tablet Chew 1 tablet (81 mg total) and swallow in the morning. carvediloL (COREG) 3.125 mg tablet Take 1 tablet (3.125 mg total) by mouth in the morning and 1 tablet (3.125 mg total) in the evening. Take with meals. cholecalciferol, vitamin D3, 5,000 units tablet Take 1 tablet (5,000 Units total) by mouth every other day. clopidogreL (PLAVIX) 75 mg tablet Take 1 tablet (75 mg total) by mouth in the morning. furosemide (LASIX) 40 mg tablet Take 1 tablet (40 mg total) by mouth daily. Every morning insulin aspart U-100 (NovoLOG) 100 unit/mL injection Inject 0.03-0.05 mL (3-5 Units total) under the skin 4 (four) times daily after meals and at bedtime. insulin glargine (LANTUS) 100 unit/mL injection Inject 0.25 mL (25 Units total) under the skin nightly. pantoprazole (PROTONIX) 20 mg EC tablet Take 1 tablet (20 mg total) by mouth in the morning. Current medications: aspirin, 81 mg, oral, Daily atorvastatin, 10 mg, oral, Nightly carvediloL, 3.125 mg, oral, BID clopidogreL, 75 mg, oral, Daily furosemide, 80 mg, intravenous, Q12H gabapentin, 300 mg, oral, BID ipratropium-albuteroL, 3 mL, nebulization, Q6H levoFLOXacin, 500 mg, intravenous, Q48H sodium chloride, 3 mL, intravenous, Q12H REBA Social History: Social History Socioeconomic History Marital status: Not on file Spouse name: Not on file Number of children: Not on file Years of education: Not on file Highest education level: Not on file Occupational History Not on file Tobacco Use Smoking status: Not on file Smokeless tobacco: Not on file Substance and Sexual Activity Alcohol use: Not on file Drug use: Not on file Sexual activity: Not on file Other Topics Concern Not on file Social History Narrative Not on file Social Drivers of Health Financial Resource Strain: Not on file Food Insecurity: Not on file Transportation Needs: Not on file Physical Activity: Not on file Stress: Not on file Social Connections: Not on file Interpersonal Safety: Not on file Housing Instability: Not on file Family History: Negative for chronic kidney disease or dialysis Review of Systems: Reports shortness breath. No other complaints Denies any fevers, chills or night sweats. Denies any earaches, runny nose or sore throat. Denies any cough, sputum production but reports shortness of breath. Denies any chest pain or palpitation. Denies any nausea, vomiting, abdominal pain, diarrhea or constipation. Denies any pain or burning on urination or difficulty passing urine. Denies any edema. Denies any new skin rashes, lesions or ulcers. Denies any new joint aches or swelling. Denies any focal weakness or paresthesia or tremors. Denies any easy bruising Physical Exam Vitals: 05/09/25 0808 05/09/25 0819 05/09/25 0829 05/09/25 1118 BP: 124/56 131/55 Pulse: 77 73 74 75 Resp: 14 Temp: 36.7 ??C (98 ??F) TempSrc: Oral SpO2: 100% 100% 100% 100% Weight: Height: INTAKE/OUTPUT: Intake/Output Summary (Last 24 hours) at 05/09/2025 1229 Last data filed at 05/09/2025 0352 Gross per 24 hour Intake 206.24 ml Output 550 ml Net -343.76 ml No intake/output data recorded. Vital Signs: Blood pressure 131/55, pulse 75, temperature 36.7 ??C (98 ??F), temperature source Oral, resp. rate 14, height 150.2 cm (4' 11.13 ), weight 77.6 kg (171 lb 1.2 oz), SpO2 100%. Respiratory Source: O2 Device: Nasal cannula Admission Weight: Weight: 77.6 kg (171 lb 1.2 oz) General appearance: alert in no apparent distress. Psychiatric: Oriented to place, time and person HEENT: atraumatic, supple, moist oral mucosa, no JVD Cardiovascular: normal S1-S2 Respiratory: No respiratory distress with no use of accessory muscles. Clear to auscultation bilaterally with no wheezesWith minimal bibasilar crackles Abdomen: soft, no tenderness, no guarding, positive bowel sounds and no hepato or splenomegaly Cardiovascular: Trace edema Vascular: adequate pulses and no carotid bruits. Musculoskeletal: no joint swelling or tenderness. Neurologic: No focal deficit in upper or lower extremities Lymphatic: no cervical or axillary lymphadenopathy. Laboratory Workup: Results from last 7 days Lab Units 05/09/25 0556 SODIUM mmol/L 137 POTASSIUM mmol/L 4.0 CHLORIDE mmol/L 92* CO2 mmol/L 37* ANION GAP mmol/L 8 BUN mg/dL 65* CREATININE mg/dL 1.86* CALCIUM mg/dL 9.1 Results from last 7 days Lab Units 05/09/25 0556 PROTEIN TOTAL g/dL 5.7* ALBUMIN g/dL 3.0* AST U/L 10 ALT U/L 3 BILIRUBIN, TOTAL mg/dL 0.5 ALK PHOS U/L 57 Results from last 7 days Lab Units 05/09/25 0556 WBC x10E9/L 6.3 HEMOGLOBIN g/dL 8.7* HEMATOCRIT % 26.5* PLATELETS X10E9/L 219 No results found for: IRON , TIBC , FERRITIN , IRONSAT , FOLATE , [id number] Results from last 7 days Lab Units 05/09/25 0556 05/08/25 2136 BEDSIDE GLUCOSE mg/dL -- 131* GLUCOSE mg/dL 102* -- Urine No results found for: COLOR , TURBIDITY , SPECIFICGRA , NITRITE , PHURINE , LEUKOCYTE , PROTEIN , KETONES , UROBILINOGEN , BLOODHGB No results found for: URINECREATI , PROTUR , MICROALBUR , MICRAU Immunology Profile No results found for: PROTELECTR , SEDRATE , CRP , RF , ANASCREEN , ANTIDSDNA , C3 , C4 , MYELOP , PROTEINASE3 No results found for: HAV , HEPAIGM , HEPBIGM , HEPBCAB , HBEAG , HEPCAB Imaging: Chest x-ray which revealed [id number] pulmonary edema bilaterally CT of the abdomen pelvis which revealed bilateral hydronephrosis with history of ureteral stents. Impression and Plan: 1. Chronic kidney disease stage 4 which is likely related to diabetic nephropathy. CT revealed bilateral hydronephrosis. Serologies and urine studies are pending. Advise avoiding nephrotoxins such asNSAIDs and IV contrast. Advise avoiding hypotension. 2. Bilateral hydronephrosis on CT: Urology was consulted. 3. Acute on chronic congestive heart failure exacerbation: Echocardiogram was ordered. IV Lasix wasordered. Salt restriction was ordered. 4. Anemia: Iron studies B12 and folate are pending. 5. Hypertension with the acceptable blood pressure control. 6. Diabetes mellitus type 2: Management per primary service 7. Metabolic alkalosis: VBG was ordered. Thank you for your consultation and allowing us to participate in the care of Lexi Cm andsolase do not hesitate to call us with any questions at: Office: [phone] Office Answering Service: [phone] Gustavo Enriquez M.D. This note was created with the assistance of a speech-recognition program. Although the intention is to generate a document that actually reflects the content of the visit, no guarantees can be provided that every mistake has been identified and corrected by editing. * Mery Couch MD - 05/09/2025 9:19 AM EDTAssociated Order(s): IP CONSULT TO PULMONOLOGY Images from the original note were not included. [facility] Progress Note Patient - Lexi Cm Age - 79 y.o. - 1945 Date of Admission - 05/08/2025 8:24 PM Reason for Consultation: Respiratory failure ASSESSMENT Acute respiratory failure hypoxia secondary to acute diastolic heart failure. Diastolic congestive heart failure. Other lung etiologies need to be ruled out after adequate diuresis. Acute on CKD stage 4 Coronary artery disease status post CABG. Diabetes mellitus type 2. Bilateral pleural effusion Essential hypertension UTIs status post bilateral kidney stents PLAN Oxygen therapy to keep sat O2 above 90%. NIV as needed It is not clear how much the patient positive during her stay at [facility]. Echo if not done. She stated that she had echo at [place] but [place] [facility] [place] [facility] Will [place] check on that. Recommend diuresis. We will await for Urology input regarding hydronephrosis. NIV as needed during the day and at night. Lower extremity ultrasound. Patient will need pulmonary function test as outpatient in addition to sleep study. Discussed plan of care with primary team. SUBJECTIVE The patient is 79 year old female with past medical history of CKD stage 4, diastolic congestive heart failure, history of UTIs and urethral stents, The patient was transferred from [facility] to [facility] on 05/08/2025. Apparently the patient was admitted to [facility] secondary to UTI symptoms and shortness ofBreath. The patient was inpatient at [facility] since 04/11. Her oxygen requirement increased during her stay. She was found to have hydronephrosis. The patient required NIV overnight. She was weaned to nasal cannula this morning and required 6 L/min nasal cannula. CT of the abdomen shows bilateral pleural effusion with adjacent atelectasis bilaterally. She had CT chest on 05/02/2025 that showed cardiomegaly and bilateral increased interstitial marking with bilateral pleural effusion. The patient stated that she smoked around 1 packet per day for around 25 years and quit 25 years ago. She has significant symptoms of sleep apnea. She does snore at night. She feels tired during the day. Her sleep is not refreshing. She is sleepy during the day. She felt better with BiPAP last night. She tolerated BiPAP 16/6 overnight. VITALS BP 124/56 Pulse 74 Temp 36.6 ??C (97.8 ??F) (Oral) Resp 21 Ht 150.2 cm (4' 11.13 ) Wt 77.6 kg (171 lb 1.2 oz) SpO2 100% BMI 34.40 kg/m?? Last 3 Weight Readings 05/08/251999 Weight: 77.6 kg (171 lb 1.2 oz) Resp Readings from Last 3 Encounters: 05/09/25 PF Readings from Last 3 Encounters: No data found for PF @LASTSAO2(3)@ Exam Physical Exam Constitutional She is oriented to person, place, and time. She appears well- developed and well-nourished. No distress. Eyes: EOM are normal. Pupils are equal, round, and reactive to light. Pulmonary/Chest: Effort normal. She has rales. Abdominal: Bowel sounds are normal. Soft. Musculoskeletal: General: Edema present. Neurological She is alert and oriented to person, place, and time. Skin: Skin is warm and dry. Meds Medications Reviewed. Scheduled Meds: aspirin, 81 mg, oral, Daily atorvastatin, 10 mg, oral, Nightly carvediloL, 3.125 mg, oral, BID clopidogreL, 75 mg, oral, Daily gabapentin, 300 mg, oral, BID ipratropium-albuteroL, 3 mL, nebulization, Q6H levoFLOXacin, 500 mg, intravenous, Q48H sodium chloride, 3 mL, intravenous, Q12H REBA Continuous Infusions: dextrose 5 % in water, 100 mL/hr sodium chloride 0.9 %, 20 mL/hr, Last Rate: Stopped (05/09/25 0348) PRN Meds: dextrose dextrose 5 % in water dextrose 50 % in water (D50W) glucagon (human recombinant) ondansetron sennosides-docusate sodium sodium chloride sodium chloride sodium chloride 0.9 % Lab Results LABs: Results from last 7 days Lab Units 05/09/25 0556 WBC x10E9/L 6.3 HEMOGLOBIN g/dL 8.7* HEMATOCRIT % 26.5* PLATELETS X10E9/L 219 Results from last 7 days Lab Units 05/09/25 0556 POTASSIUM mmol/L 4.0 CHLORIDE mmol/L 92* CO2 mmol/L 37* BUN mg/dL 65* CREATININE mg/dL 1.86* CALCIUM mg/dL 9.1 Intake/Output last 3 shifts: I/O last 3 completed shifts: In: 206.2 [P.O.:100; I.V.:9.7; IV Piggyback:96.5] Out: 550 [Urine:550] Intake/Output this shift: No intake/output data recorded. Radiology CT of the abdomen shows bilateral pleural effusion with adjacent atelectasis bilaterally. She had CT chest on 05/02/2025 that showed cardiomegaly and bilateral increased interstitial marking with bilateral pleural effusion. Mery Couch MD [facility] This note was completed with the assistance of a speech- recognition system. Every effort was made to ensure accuracy. However, inadvertent computerized journeyman lineman errors may be present and no guarantees can be provided that every mistake has been identified and corrected by editing. * Bora Solo MD - 05/09/2025 8:36 AM EDTAssociated Order(s): IP CONSULT TO UROLOGY Images from the original note were not included. Urology Consult Note Patient: Lexi Cm Date of : 1945 ATTENDING: Dr. Hdez CHIEF COMPLAINT: BL stent - left stent in ureter HISTORY OF PRESENT ILLNESS: The patient is a 79 y.o. female who presents to the hospital due to hypoxic respiratory failure. Ptis poor historian and no records are available presently for review. 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 Natarajan. She has had stents exchanged in the past couple months, unsure when. She does state that at her mostrecent exchange they were only able to exchange one of the stents (pt and family believe this was the right stent) as the other stent (left) was not amenable to exchange. She states they were planning another exchange given above but is unsure of the date that this was slated to occur. Discussed with her treating urologist Dr. Natarajan as follows: Patient with RP fibrosis admitted [facility] 03/[facility]. Right stent exchanged but left stent looped inureter on exchange attempt. Due to septic like presentation decision was made to excise distal [place] place 2nd stent into left ureter. Readmitted to [facility] 05/03 with febrile UTI suspected. Required [facility] for treatment but due to unavailability patient ultimately transferred. She was admitted for hypoxic respiratory failure. Labs on admission demonstrated no significant leukocytosis, Cr to 1.86 - unknown baseline. No UA collected . Urology was consulted due to above. Patient's old records, notes and chart reviewed and summarized above. Labs Vitals Micro Prior History Patient Vitals for the past 24 hrs: BP Temp Temp src Pulse Resp SpO2 Height Weight 05/09/25 0829 -- -- -- 74 -- 100 % -- -- 05/09/25 0819 -- -- -- 73 -- 100 % -- -- 05/09/25 0808 124/56 -- -- 77 -- 100 % -- -- 05/09/25 0718 149/62 36.6 ??C (97.8 ??F) Oral 76 21 95 % -- -- 05/09/25 0645 -- -- -- 67 16 100 % -- -- 05/09/25 0600 145/61 -- -- 69 -- 100 % -- -- 05/09/25 0400 133/53 (!) 35.9 ??C (96.7 ??F) Axillary 59 12 100 % -- -- 05/09/25 0300 -- -- -- 62 20 100 % -- -- 05/09/25 0200 158/56 -- -- 75 11 100 % -- -- 05/09/25 0114 -- -- -- 76 19 96 % -- -- 05/09/25 0105 -- -- -- 66 18 100 % -- -- 05/09/25 0100 -- -- -- 62 -- 100 % -- -- 05/09/25 0028 147/64 37.2 ??C (99 ??F) Axillary 72 19 100 % -- -- 05/08/252299 -- -- -- 72 -- 100 % -- -- 05/08/252250 -- -- -- 74 19 100 % -- -- 05/08/252199 -- -- -- 69 -- 100 % -- -- 05/08/252148 -- -- -- 76 -- 100 % -- -- 05/08/252039 158/72 -- -- 82 15 90 % -- -- 05/08/251999 158/72 37.4 ??C (99.4 ??F) Oral 80 22 91 % 150.2 cm (4' 11.13 ) 77.6 kg (171 lb 1.2 oz) Intake/Output Summary (Last 24 hours) at 05/09/2025 0839 Last data filed at 05/09/2025 0352 Gross per 24 hour Intake 206.24 ml Output 550 ml Net -343.76 ml No results found for: PSA Results from last 7 days Lab Units 05/09/25 0556 05/08/25 2136 WBC x10E9/L 6.3 -- HEMOGLOBIN g/dL 8.7* -- MCV fL 96 -- MCHC g/dL 32.8 -- PLATELETS X10E9/L 219 -- SODIUM mmol/L 137 -- POTASSIUM mmol/L 4.0 -- CALCIUM mg/dL 9.1 -- ANION GAP mmol/L 8 -- CREATININE mg/dL 1.86* -- BUN mg/dL 65* -- BEDSIDE GLUCOSE mg/dL -- 131* GLUCOSE mg/dL 102* -- ALBUMIN g/dL 3.0* -- BILIRUBIN, TOTAL mg/dL 0.5 -- AST U/L 10 -- ALT U/L 3 -- ALK PHOS U/L 57 -- Microbiology Results No results found for the last 168 hours. Past Medical History: No past medical history on file. Past Surgical History: No past surgical history on file. Medications: Scheduled Meds: aspirin, 81 mg, oral, Daily atorvastatin, 10 mg, oral, Nightly carvediloL, 3.125 mg, oral, BID clopidogreL, 75 mg, oral, Daily gabapentin, 300 mg, oral, BID ipratropium-albuteroL, 3 mL, nebulization, Q6H levoFLOXacin, 500 mg, intravenous, Q48H sodium chloride, 3 mL, intravenous, Q12H REBA Continuous Infusions: dextrose 5 % in water, 100 mL/hr sodium chloride 0.9 %, 20 mL/hr, Last Rate: Stopped (05/09/25 0348) PRN Meds:. dextrose dextrose 5 % in water dextrose 50 % in water (D50W) glucagon (human recombinant) ondansetron sennosides-docusate sodium sodium chloride sodium chloride sodium chloride 0.9 % Allergies: Patient has no known allergies. Social History: Social History Socioeconomic History Marital status: Not on file Spouse name: Not on file Number of children: Not on file Years of education: Not on file Highest education level: Not on file Occupational History Not on file Tobacco Use Smoking status: Not on file Smokeless tobacco: Not on file Substance and Sexual Activity Alcohol use: Not on file Drug use: Not on file Sexual activity: Not on file Other Topics Concern Not on file Social History Narrative Not on file Social Drivers of Health Financial Resource Strain: Not on file Food Insecurity: Not on file Transportation Needs: Not on file Physical Activity: Not on file Stress: Not on file Social Connections: Not on file Interpersonal Safety: Not on file Housing Instability: Not on file Family History: No family history on file. REVIEW OF SYSTEMS: Review of Systems No F/C/N/V/CP/SOB/WNT Physical Exam: This a 79 y.o. patient Patient Vitals for the past 24 hrs: BP Temp Temp src Pulse Resp SpO2 Height Weight 05/09/25 0829 -- -- -- 74 -- 100 % -- -- 05/09/25 0819 -- -- -- 73 -- 100 % -- -- 05/09/25 0808 124/56 -- -- 77 -- 100 % -- -- 05/09/25 0718 149/62 36.6 ??C (97.8 ??F) Oral 76 21 95 % -- -- 05/09/25 0645 -- -- -- 67 16 100 % -- -- 05/09/25 0600 145/61 -- -- 69 -- 100 % -- -- 05/09/25 0400 133/53 (!) 35.9 ??C (96.7 ??F) Axillary 59 12 100 % -- -- 05/09/25 030 -- -- -- 62 20 100 % -- -- 05/09/25 0200 158/56 -- -- 75 11 100 % -- -- 05/09/25 0114 -- -- -- 76 19 96 % -- -- 05/09/25 0105 -- -- -- 66 18 100 % -- -- 05/09/25 0100 -- -- -- 62 -- 100 % -- -- 05/09/25 0028 147/64 37.2 ??C (99 ??F) Axillary 72 19 100 % -- -- 05/08/252299 -- -- -- 72 -- 100 % -- -- 05/08/252250 -- -- -- 74 19 100 % -- -- 05/08/252199 -- -- -- 69 -- 100 % -- -- 05/08/252148 -- -- -- 76 -- 100 % -- -- 05/08/252039 158/72 -- -- 82 15 90 % -- -- 05/08/251999 158/72 37.4 ??C (99.4 ??F) Oral 80 22 91 % 150.2 cm (4' 11.13 ) 77.6 kg (171 lb 1.2 oz) Physical Exam Constitutional: NAD HEENT: NCAT, PERRLA, EOMI Card: RRR, extremities warm well perfused Pulm: no SOB, no increased WOB Abdominal: no tenderness, distension, pain. exam: no suprapubic tenderness, no flank pain MSK: no overt deformities Neuro: no focal deficits Additional Lab/culture results: Urinalysis: No results found for: COLOR , TURBIDITY , SPECIFICGRA , NITRITE , PHURINE , LEUKOCYTE , PROTEIN , KETONES , UROBILINOGEN , BLOODHGB Lab Results Component Value Date GLU 102 (H) 05/09/2025 Imaging Results: No results found. Assessment and Plan Impression: Lexi Cm is a 79 y.o. female who presents with hypoxic respiratory insufficiency Active Problem List BL stents for RP fibrosis Malpositioned left stent with 2nd stent in proximal ureter SUSAN Plan: Obtain records from OSH for true history and evaluation of baseline cr Send for UA reflex to culture IR consult for PNT Recommend holding plavix if agreeable per primary for above. Bora Solo MD Urology 8:39 AM 05/09/2025 Cosigned by Tigre Hdez Jr., MD at 05/09/2025 5:41 PM EDT Associated attestation - Tigre Hdez Jr., MD - 05/09/2025 5:41 PM EDT Attending Attestation: I saw the patient. I participated and was physically present during the critical/nolan portions of the service. I was directly involved in the management and treatment plan of the patient. I reviewed the resident's note. Additional Notes/Findings: I reviewed history and physical exam as well as provider notes Internal Medicine, Nephrology, and Pulmonary Medicine. I also discussed patient with her established urologist, Dr. Natarajan. See below. No flank or abdominal mass or tenderness on exam. CPAP. I reviewed outside CT films. I also discussed CT films with available radiologist. Right ureteral stent has a appropriate position, but she actually has some mild left hydronephrosis, distal migration of 1 of her left ureteral stents, and by history a knotted additional left ureteral stent. See below. Labs as above. Impressions: 1. [facility] resident Established patient urologist Dr. Freddie Natarajan, [facility] area, managed for chronic retroperitoneal fibrosis with bilateral stent exchanges most recently March 2025with inability to remove the left ureteral stent at that time secondary to knotting of the left ureteral stent, which was partially excised at the time with plans for subsequent retrieval, but the right exchange was exchange at that time and an additional left stent was placed, Now with migration of the additional left stent and obviously retention of the knotted stent, admitted [facility] 05/08/2025 with hypoxic respiratory failure, acute encephalopathy, history febrile UTI, and history CHF, diabetes, CABG, and bilateral pleural effusions with stage 4 chronic kidney disease creatinine 1.86 2. Bilateral renovascular calcifications 3. Anemia hemoglobin 8.7 with Plavix, aspirin use 4. By history Klebsiella UTI Recommendations: 1. Urine cultures 2. IV antibiotic 3. Placement of left percutaneous nephrostomy tube by Interventional Radiology with consideration for nephroureteral catheter and likely subsequent or if preferred simultaneous retrieval of both ureteral stents if possible 4. Attention to anemia and other issues per primary services. 5. Preferably hold Plavix/aspirin prior to nephrostomy tube placement We will follow closely with you. Patient will then return subsequently to Dr. Natarajan for follow up care. Thank you very much. I appreciate being asked to help with this patient's care. Tigre Hdez Jr., M.D. [facility] [phone] documented in this encounter Nursing Notes * Elizabeth Austin RN - 05/20/2025 11:35 AM EST Questions, comments, and concerns addressed. Midline in place at time of discharge with blood return noted for continued IV antibiotics. Peripheral Ivs removed. Vital signs WNL at time of discharge. All belongings returned to patient. Pt discharged to [facility] via [facility] transportation. documented in this encounter Miscellaneous Notes * Discharge Planning Note - Anabel Tan - 05/20/2025 10:41 AM EST DISCHARGE PLANNING NOTE CRF sent to [facility] (P# ; F# ) * Discharge Planning Note - ESTHER Prasad - 05/20/2025 10:02 AM EST Ongoing Assessment for Discharge Needs Reviewed discharge milestones and patient needs related to discharge plan. Current estimated discharge date of May 20, 2025 has been reviewed by treatment team. Md salcido with the discharge to [facility]. Tasked [facility] to send the crf to [place]. ELVIN miranda. Rn updated and provided number to call report. Patient's daugter was notified yesterday of the transprot at 10 am today and in agreement with the transition plans. [facility] to transport. - ESTHER rPasad 05/20/25 10:06 AM Ongoing Assessment for Discharge Needs Flowsheet Row Most Recent Value Referral To Community Referrals / Resources Provided Denies needs Services Requested Patient expects to be discharged to: SNF Does the patient wish to have family/friend/caregiver involved in their discharge planning? No, thepatient does not wish to have family/friend/caregiver involved in their discharge planning Discharge Disposition SNF Facility/Service Name N/A SNF Name [facility] SNF Accepted? Yes Does the patient need discharge transportation arranged? No Mobility issues discussed with transportation provider No Patient choice offered Yes List Provided Yes [facility] List Provided Shelter Facility * Plan of Care - Humberto Mario RN - 05/20/2025 3:43 AM EST Problem: Pain Goal: Patient goal is pain score less than 4, able to rest, and participant in treatment plan as appropriate Description: INTERVENTIONS: 1. Encourage patient or legal truck sales representative to report early pain and ask for pain medicine when needed 2. Assess pain using appropriate pain scale and include the scale used when documenting 3. Administer analgesics based on type and severity of pain and evaluate response within appropriate time frame 4. Implement non-pharmacological measures as appropriate and evaluate response 5. Consider cultural and social influences on pain and pain management 6. Notify LIP if interventions ineffective or patient reports new pain 7. Monitor vital signs including pulse ox, end-tidal CO2 based on pain intervention 8. Reassess pain per policy 9. Teach patient or legal truck sales representative interventions for comforting Outcome: Progressing Note: Evaluation of progress towards goal: Pt remains free from pain at this time. Problem: Discharge Planning Goal: Discharge to post-acute care, other facility, or home with appropriate resources Description: Patient's goal is: [place] INTERVENTIONS 1. Conduct assessment to determine patient/family and health care team treatment goals, and need for post-acute services based on payer coverage, community resources, and patient preferences, and barriers to discharge 2. Coordinate with Social work, Care Navigation, and Utilization Review to arrange appropriate level of services according to patient's needs based on patient preference and payer coverage in collaboration with the physician and health care team 3. Address psychosocial, clinical, and financial barriers to discharge as identified in assessment in conjunction with the patient/family and health care team 4. Consult appropriate ancillary services (i.e.. PT/OT/ST, etc) as needed 5. Communicate with and update the patient/family, physician, and health care team regarding progress on the discharge plan 6. Identify discharge learning needs (meds, wound care, etc). 7. Arrange for needed discharge transportation as appropriate Outcome: Progressing Note: Evaluation of progress towards goal: Pt to discharge back to SNF today. Problem: Moderate - High Risk Fall Score Description: Young Fall Score of =/> 25 or indicated by [facility] Assessment Goal: Patient should be free from fall Description: Interventions: 1. [place] to environment 2. Hourly rounds addressing the 4 P's (Pain, Positioning, Possessions, Potty) 3. Clear area of hazards (spills, clutter, electrical cords, unnecessary equipment) 4. Place equipment (bed & TV controls, call light, phone, urinal) within reach 5. Encourage patient to wear glasses and hearing aides as appropriate 6. Maintain bed in lowest position 7. Lock wheels on bed/wheelchair 8. Provide adequate lighting, including night light 9. Assess need for additional bedding, food/fluids, pain med's prior to sleep/routinely 10. Provide gripper slippers or personal non-skid footwear 11. Teach patient and patient truck sales representative to maintain environment for safety and engage in all aspects of fall prevention program 12. Remind patient to call for help before getting out of bed 13. Initiate bed/chair/exit alarms supportive devices as appropriate, (chair wedge, no-skid floor mat, raised edge mattress, hip protectors) 14. Locate patient bed assignment for optimal visualization 15. Evaluate and identify Safe Patient Handling Equipment needs 16. Provide supervision when out of bed or chair 17. Utilize gait belt as needed to assist with ambulation 18. Place adaptive equipment (cane, walker) within reach 19. Request patient truck sales representative bring adaptive equipment/mobility aids from home or obtain and provide as needed 20. Consult pharmacy regarding effects of med's affecting mobility, cognition, and alternatives 21. Obtain physician order for PT if risk factors associated with mobility are present 22. Obtain physician order for OT as appropriate 23. Utilize diversional activities 24. Educate patient and patient truck sales representative how to maintain a safe environment during visitationtimes (notify nurse prior to leaving bedside) 25. Consider appropriateness of medical or non-director medical science 26. Set up voiding schedule as appropriate (every 2 hours) Outcome: Progressing Note: Evaluation of progress towards goal: Pt remains free from falls at this time. * Plan of Care - Coco Weinstein RCP - 05/19/2025 7:13 PM EST Problem: Inadequate Breathing Pattern Goal: Patient will achieve/maintain normal respiratory rate/effort Description: Patient's goal is: to return to baseline respiratory status prior to discharge INTERVENTIONS 1. Assess and monitor respiratory rate, effort, breathing pattern, and oxygenation 2. Monitor patient for restlessness, anxiety, air hunger 3. Assess physical activity tolerance 4. Assess tobacco history; ask, advise, and refer as appropriate 5. Collaborate with interdisciplinary team and initiate plans/interventions as needed Outcome: Progressing Note: Evaluation of progress towards goal: Pt is stable on her 2lpm nc and is wearing bipap at HS. She denies shortness of breath at this time. We will continue to monitor and assess patient for any changes in her respiratory status. Respiratory Therapy Clinical Practice Guidelines Consult Vital Signs Pulse: 67 Heart Rate Source: Monitor Resp: 14 SpO2: 99 % O2 Device: Nasal cannula O2 Flow Rate (L/min): 2 L/min Patient Position: Semi-fowlers Respiratory Assessment Assessment Type: Assess only Level of Consciousness: Alert Subjective Comments: sleeping Respiratory Pattern: Regular Chest Assessment: Chest expansion symmetrical Bilateral Breath Sounds: Clear, Diminished Patient Active Problem List Diagnosis Respiratory failure ([facility]) Acute exacerbation of CHF (congestive heart failure) ([facility] [place] [facility]) Last Chest XRAY: Reviewed Pulmonary History: reviewed RT Reassessment Due In: 12 hours Bronchodilator Respiratory Rate Level 1: Less than 20 Dyspnea Level 1: No SOB Breath Sounds Level 1: Clear Respiratory History Home Therapy: Requires home therapy Oxygen to Keep SpO2 Greater Than Or Equal To 92% Level 1: Room air or baseline O2 ; NIV less than or equal to 40% Peak Flow ([facility] Only) Home Therapy: Not Applicable Patients Current Level & Intervention: 1 Every 4 hours PRN for wheezing via nebulizer * Discharge Planning Note - ESTHER Prasad - 05/19/2025 1:54 PM EST Ongoing Assessment for Discharge Needs Reviewed discharge milestones and patient needs related to discharge plan. Current estimated discharge date of May 19, 2025 has been reviewed by treatment team. Reviewed in Daily transition rounds. Md waiting on nephrology for recommendations prior to discharge. storage brine worker spoke with transport and has pushed back the transport several times. Transport is asking if can transport in the am due to the distance. storage brine worker updated [facility] and they were good for admit in the am. MD updated. storage brine worker to follow and assist with appropriate transition plans. - ESTHER Prasad 05/19/25 1:56 PM BLS transport at 10 am to [place]. Daughter Niyah was updated and in agreement with the transition plans. - ESTHER Prasad 05/19/25 3:01 PM Ongoing Assessment for Discharge Needs Flowsheet Row Most Recent Value Referral To Community Referrals / Resources Provided Denies needs Services Requested Patient expects to be discharged to: SNF Does the patient wish to have family/friend/caregiver involved in their discharge planning? No, thepatient does not wish to have family/friend/caregiver involved in their discharge planning Discharge Disposition SNF Facility/Service Name N/A SNF Name [facility] Accepted? Yes Does the patient need discharge transportation arranged? No Mobility issues discussed with transportation provider No Patient choice offered Yes List Provided Yes [facility] List Provided Shelter Facility * Plan of Care - Leeann Archer RN - 05/19/2025 1:12 PM EST Problem: Pain Goal: Patient goal is pain score less than 4, able to rest, and participant in treatment plan as appropriate Description: INTERVENTIONS: 1. Encourage patient or legal truck sales representative to report early pain and ask for pain medicine when needed 2. Assess pain using appropriate pain scale and include the scale used when documenting 3. Administer analgesics based on type and severity of pain and evaluate response within appropriate time frame 4. Implement non-pharmacological measures as appropriate and evaluate response 5. Consider cultural and social influences on pain and pain management 6. Notify LIP if interventions ineffective or patient reports new pain 7. Monitor vital signs including pulse ox, end-tidal CO2 based on pain intervention 8. Reassess pain per policy 9. Teach patient or legal truck sales representative interventions for comforting 05/19/2025 1307 by LIANE Bradshaw Outcome: Progressing Note: Evaluation of progress towards goal: Patient assessed using 0-10 pain scale. PRN analgesics available. Will continue to administer appropriately. 05/19/2025 1016 by LIANE Bradshaw Outcome: Progressing Note: Evaluation of progress towards goal: Patient assessed using 0-10 pain scale. PRN analgesics available. Will continue to use appropriately. Problem: Moderate - High Risk Fall Score Description: Young Fall Score of =/> 25 or indicated by [facility] Assessment Goal: Patient should be free from fall Description: Interventions: 1. [place] to environment 2. Hourly rounds addressing the 4 P's (Pain, Positioning, Possessions, Potty) 3. Clear area of hazards (spills, clutter, electrical cords, unnecessary equipment) 4. Place equipment (bed & TV controls, call light, phone, urinal) within reach 5. Encourage patient to wear glasses and hearing aides as appropriate 6. Maintain bed in lowest position 7. Lock wheels on bed/wheelchair 8. Provide adequate lighting, including night light 9. Assess need for additional bedding, food/fluids, pain med's prior to sleep/routinely 10. Provide gripper slippers or personal non-skid footwear 11. Teach patient and patient truck sales representative to maintain environment for safety and engage in all aspects of fall prevention program 12. Remind patient to call for help before getting out of bed 13. Initiate bed/chair/exit alarms supportive devices as appropriate, (chair wedge, no-skid floor mat, raised edge mattress, hip protectors) 14. Locate patient bed assignment for optimal visualization 15. Evaluate and identify Safe Patient Handling Equipment needs 16. Provide supervision when out of bed or chair 17. Utilize gait belt as needed to assist with ambulation 18. Place adaptive equipment (cane, walker) within reach 19. Request patient truck sales representative bring adaptive equipment/mobility aids from home or obtain and provide as needed 20. Consult pharmacy regarding effects of med's affecting mobility, cognition, and alternatives 21. Obtain physician order for PT if risk factors associated with mobility are present 22. Obtain physician order for OT as appropriate 23. Utilize diversional activities 24. Educate patient and patient truck sales representative how to maintain a safe environment during visitationtimes (notify nurse prior to leaving bedside) 25. Consider appropriateness of medical or non-director medical science 26. Set up voiding schedule as appropriate (every 2 hours) Outcome: Progressing Note: Evaluation of progress towards goal: Patient resting in bed. Bed is in the lowest position. Call light remains in reach and all needs are assessed before leaving the room. Problem: Cardiovascular - Adult Goal: Maintains optimal cardiac output and hemodynamic stability Description: Patient's goal is: INTERVENTIONS: 1. Monitor vital signs, rhythm, and trends 2. Monitor for bleeding, hypotension and signs of decreased cardiac output 3. Administer ordered vasoactive medications to optimize hemodynamic stability 4. Monitor arterial and/or venous puncture sites for bleeding and/or hematoma 5. Assess quality of pulses, skin color and temperature Outcome: Progressing Note: Evaluation of progress towards goal: Patients vital signs remain stable at this time. Patientbeing monitored for signs of bleeding. No distress noted at this time. * Plan of Care - Naomi Cedillo RN - 05/19/2025 7:29 AM EST Problem: Pain Goal: Patient goal is pain score less than 4, able to rest, and participant in treatment plan as appropriate Description: INTERVENTIONS: 1. Encourage patient or legal truck sales representative to report early pain and ask for pain medicine when needed 2. Assess pain using appropriate pain scale and include the scale used when documenting 3. Administer analgesics based on type and severity of pain and evaluate response within appropriate time frame 4. Implement non-pharmacological measures as appropriate and evaluate response 5. Consider cultural and social influences on pain and pain management 6. Notify LIP if interventions ineffective or patient reports new pain 7. Monitor vital signs including pulse ox, end-tidal CO2 based on pain intervention 8. Reassess pain per policy 9. Teach patient or legal truck sales representative interventions for comforting Outcome: Progressing Note: Evaluation of progress towards goal: Patient's pain assessed using 0-10 pain scale. PRN pain analgesics available. Will continue to assess patient's pain and use appropriate interventions for duration of shift. Problem: Safety Goal: Patient will be injury free during hospitalization Description: INTERVENTIONS: 1. Assess patient's risk for falls and implement fall prevention plan of care per policy 2. Provide and maintain a safe environment 3. Proper use of double Identifiers 4. Medication administration using the 5 rights 5. Hand hygiene 6. Specimens are labeled at the bedside 7. Instruct patient/ patient truck sales representative about use of safety devices 8. Include patient/ patient truck sales representative in decisions related to safety Outcome: Progressing Note: Evaluation of progress towards goal: Patient remains free from injury at this point. Safety interventions in place. Patient's call light and personal belongings within reach as appropriate, fall risk interventions maintained. Problem: Infection Goal: Absence of infection during hospitalization Description: INTERVENTIONS 1. Assess and monitor for signs and symptoms of infection. 2. Monitor lab/diagnostic results. 3. Monitor all insertion sites i.e., indwelling lines, tubes and drains. 4. Monitor endotracheal (as able) and nasal secretions for changes in amount and color. 5. Administer medications as ordered. 6. Instruct and encourage patient and family to use good hand hygiene technique. 7. Identify and instruct patient/patient truck sales representative in use of appropriate isolation precautionsfor identified infection/symptoms. 8. Provide and discuss with patient/patient truck sales representative on educational MDRO sheet. 9. Encourage and monitor nutritional status daily and consult card tender if indicated. 10. Implement neutropenic guidelines as needed. Outcome: Progressing Note: Evaluation of progress towards goal: Patient evaluated for S/S of infection. Patient's vital signs, labs, and diagnostic tests are being monitored each shift. Patient being treated with IV antibiotic therapy. Problem: Knowledge Deficit Goal: Patient/patient truck sales representative demonstrates understanding of disease process, treatment plan,medications, and discharge instructions Description: INTERVENTIONS 1. Complete learning assessment and assess knowledge base 2. Provide teaching at level of understanding 3. Provide teaching via preferred learning method(s) Outcome: Progressing Note: Evaluation of progress towards goal: Patient updated on plan of care. Level of understanding assessed as appropriate. Will continue to reassess and reinforce as needed. Problem: Discharge Planning Goal: Discharge to post-acute care, other facility, or home with appropriate resources Description: Patient's goal is: [place] INTERVENTIONS 1. Conduct assessment to determine patient/family and health care team treatment goals, and need for post-acute services based on payer coverage, community resources, and patient preferences, and barriers to discharge 2. Coordinate with Social work, Care Navigation, and Utilization Review to arrange appropriate level of services according to patient's needs based on patient preference and payer coverage in collaboration with the physician and health care team 3. Address psychosocial, clinical, and financial barriers to discharge as identified in assessment in conjunction with the patient/family and health care team 4. Consult appropriate ancillary services (i.e.. PT/OT/ST, etc) as needed 5. Communicate with and update the patient/family, physician, and health care team regarding progress on the discharge plan 6. Identify discharge learning needs (meds, wound care, etc). 7. Arrange for needed discharge transportation as appropriate Outcome: Progressing Note: Evaluation of progress towards goal: Discharge planning needs addressed in DTRs. Coordinatingwith CLOTH CALENDER to ensure a safe discharge plan. Problem: Moderate - High Risk Fall Score Description: Young Fall Score of =/> 25 or indicated by [facility] Assessment Goal: Patient should be free from fall Description: Interventions: 1. [place] to environment 2. Hourly rounds addressing the 4 P's (Pain, Positioning, Possessions, Potty) 3. Clear area of hazards (spills, clutter, electrical cords, unnecessary equipment) 4. Place equipment (bed & TV controls, call light, phone, urinal) within reach 5. Encourage patient to wear glasses and hearing aides as appropriate 6. Maintain bed in lowest position 7. Lock wheels on bed/wheelchair 8. Provide adequate lighting, including night light 9. Assess need for additional bedding, food/fluids, pain med's prior to sleep/routinely 10. Provide gripper slippers or personal non-skid footwear 11. Teach patient and patient truck sales representative to maintain environment for safety and engage in all aspects of fall prevention program 12. Remind patient to call for help before getting out of bed 13. Initiate bed/chair/exit alarms supportive devices as appropriate, (chair wedge, no-skid floor mat, raised edge mattress, hip protectors) 14. Locate patient bed assignment for optimal visualization 15. Evaluate and identify Safe Patient Handling Equipment needs 16. Provide supervision when out of bed or chair 17. Utilize gait belt as needed to assist with ambulation 18. Place adaptive equipment (cane, walker) within reach 19. Request patient truck sales representative bring adaptive equipment/mobility aids from home or obtain and provide as needed 20. Consult pharmacy regarding effects of med's affecting mobility, cognition, and alternatives 21. Obtain physician order for PT if risk factors associated with mobility are present 22. Obtain physician order for OT as appropriate 23. Utilize diversional activities 24. Educate patient and patient truck sales representative how to maintain a safe environment during visitationtimes (notify nurse prior to leaving bedside) 25. Consider appropriateness of medical or non-director medical science 26. Set up voiding schedule as appropriate (every 2 hours) Outcome: Progressing Note: Evaluation of progress towards goal: Patient remains free from falls this admission. High fall risk interventions in place per the young fall risk scale. * Plan of Care - Janel Braun RN - 05/18/2025 2:12 PM EST Problem: Pain Goal: Patient goal is pain score less than 4, able to rest, and participant in treatment plan as appropriate Description: INTERVENTIONS: 1. Encourage patient or legal truck sales representative to report early pain and ask for pain medicine when needed 2. Assess pain using appropriate pain scale and include the scale used when documenting 3. Administer analgesics based on type and severity of pain and evaluate response within appropriate time frame 4. Implement non-pharmacological measures as appropriate and evaluate response 5. Consider cultural and social influences on pain and pain management 6. Notify LIP if interventions ineffective or patient reports new pain 7. Monitor vital signs including pulse ox, end-tidal CO2 based on pain intervention 8. Reassess pain per policy 9. Teach patient or legal truck sales representative interventions for comforting Outcome: Progressing Note: Evaluation of progress towards goal: pt resting comfortably in bed at this time. Will continue to monitor/assess for duration of shift. Problem: Safety Goal: Patient will be injury free during hospitalization Description: INTERVENTIONS: 1. Assess patient's risk for falls and implement fall prevention plan of care per policy 2. Provide and maintain a safe environment 3. Proper use of double Identifiers 4. Medication administration using the 5 rights 5. Hand hygiene 6. Specimens are labeled at the bedside 7. Instruct patient/ patient truck sales representative about use of safety devices 8. Include patient/ patient truck sales representative in decisions related to safety Outcome: Progressing Note: Evaluation of progress towards goal: pt's safety maintained at this time. No falls/injuries noted. Will continue to monitor/assess for duration of shift. Problem: Infection Goal: Absence of infection during hospitalization Description: INTERVENTIONS 1. Assess and monitor for signs and symptoms of infection. 2. Monitor lab/diagnostic results. 3. Monitor all insertion sites i.e., indwelling lines, tubes and drains. 4. Monitor endotracheal (as able) and nasal secretions for changes in amount and color. 5. Administer medications as ordered. 6. Instruct and encourage patient and family to use good hand hygiene technique. 7. Identify and instruct patient/patient truck sales representative in use of appropriate isolation precautionsfor identified infection/symptoms. 8. Provide and discuss with patient/patient truck sales representative on educational MDRO sheet. 9. Encourage and monitor nutritional status daily and consult card tender if indicated. 10. Implement neutropenic guidelines as needed. Outcome: Progressing Note: Evaluation of progress towards goal: labs monitored. Pt afebrile, VSS. No changes noted. IV antibiotics continue. Will continue to monitor/assess for duration of shift. Problem: Knowledge Deficit Goal: Patient/patient truck sales representative demonstrates understanding of disease process, treatment plan,medications, and discharge instructions Description: INTERVENTIONS 1. Complete learning assessment and assess knowledge base 2. Provide teaching at level of understanding 3. Provide teaching via preferred learning method(s) Outcome: Progressing Note: Evaluation of progress towards goal: POC+meds discussed with pt. Questions/concerns addressedat this time. Will continue to monitor/assess for duration of shift. Problem: Discharge Planning Goal: Discharge to post-acute care, other facility, or home with appropriate resources Description: Patient's goal is: [place] INTERVENTIONS 1. Conduct assessment to determine patient/family and health care team treatment goals, and need for post-acute services based on payer coverage, community resources, and patient preferences, and barriers to discharge 2. Coordinate with Social work, Care Navigation, and Utilization Review to arrange appropriate level of services according to patient's needs based on patient preference and payer coverage in collaboration with the physician and health care team 3. Address psychosocial, clinical, and financial barriers to discharge as identified in assessment in conjunction with the patient/family and health care team 4. Consult appropriate ancillary services (i.e.. PT/OT/ST, etc) as needed 5. Communicate with and update the patient/family, physician, and health care team regarding progress on the discharge plan 6. Identify discharge learning needs (meds, wound care, etc). 7. Arrange for needed discharge transportation as appropriate Outcome: Progressing Note: Evaluation of progress towards goal: d/c plans discussed. No changes noted. Possible discharge tomorrow. Will continue to monitor/assess for duration of shift. Problem: Inadequate Breathing Pattern Goal: Patient will achieve/maintain normal respiratory rate/effort Description: Patient's goal is: to return to baseline respiratory status prior to discharge INTERVENTIONS 1. Assess and monitor respiratory rate, effort, breathing pattern, and oxygenation 2. Monitor patient for restlessness, anxiety, air hunger 3. Assess physical activity tolerance 4. Assess tobacco history; ask, advise, and refer as appropriate 5. Collaborate with interdisciplinary team and initiate plans/interventions as needed Outcome: Progressing Note: Evaluation of progress towards goal: pt's sats+RR=WNL. No s/sx respiratory distress noted at this time on 2L NC vs bipap at night. Will continue to monitor/assess for duration of shift. Problem: Moderate - High Risk Fall Score Description: Young Fall Score of =/> 25 or indicated by [facility] Assessment Goal: Patient should be free from fall Description: Interventions: 1. [place] to environment 2. Hourly rounds addressing the 4 P's (Pain, Positioning, Possessions, Potty) 3. Clear area of hazards (spills, clutter, electrical cords, unnecessary equipment) 4. Place equipment (bed & TV controls, call light, phone, urinal) within reach 5. Encourage patient to wear glasses and hearing aides as appropriate 6. Maintain bed in lowest position 7. Lock wheels on bed/wheelchair 8. Provide adequate lighting, including night light 9. Assess need for additional bedding, food/fluids, pain med's prior to sleep/routinely 10. Provide gripper slippers or personal non-skid footwear 11. Teach patient and patient truck sales representative to maintain environment for safety and engage in all aspects of fall prevention program 12. Remind patient to call for help before getting out of bed 13. Initiate bed/chair/exit alarms supportive devices as appropriate, (chair wedge, no-skid floor mat, raised edge mattress, hip protectors) 14. Locate patient bed assignment for optimal visualization 15. Evaluate and identify Safe Patient Handling Equipment needs 16. Provide supervision when out of bed or chair 17. Utilize gait belt as needed to assist with ambulation 18. Place adaptive equipment (cane, walker) within reach 19. Request patient truck sales representative bring adaptive equipment/mobility aids from home or obtain and provide as needed 20. Consult pharmacy regarding effects of med's affecting mobility, cognition, and alternatives 21. Obtain physician order for PT if risk factors associated with mobility are present 22. Obtain physician order for OT as appropriate 23. Utilize diversional activities 24. Educate patient and patient truck sales representative how to maintain a safe environment during visitationtimes (notify nurse prior to leaving bedside) 25. Consider appropriateness of medical or non-director medical science 26. Set up voiding schedule as appropriate (every 2 hours) Outcome: Progressing Note: Evaluation of progress towards goal: pt's safety maintained at this time. No falls/injuries noted. Will continue to monitor/assess for duration of shift. Problem: Potential for Compromised Skin Integrity Goal: Skin integrity is maintained or improved Description: Patient's goal is: to have no new skin breakdown for duration of stay INTERVENTIONS 1. Perform initial skin assessment on admission and as needed 2. Turn patient every 2 hours and PRN 3. Relieve pressure to bony prominences 4. Avoid shearing 5. Keep skin clean and dry 6. Alternate a full bath with partial baths for elderly 7. Apply lotion/moisturizer on skin 8. Monitor patient's hygiene practices 9. Float heels 10. Collaborate with interdisciplinary team and initiate plans and interventions as needed Outcome: Progressing Note: Evaluation of progress towards goal: no new skin breakdown noted at this time. Will continue to monitor/assess for duration of shift. Goal: Patient's nutritional intake is adequate Description: Patient's goal is: to have adequate PO intake prior to discharge INTERVENTIONS 1. Assess and monitor food intake and supplements, patient food preferences, nausea, vomiting, labs, oral cavity (gums, teeth, tongue, mucosa), proper denture fit, and cultural beliefs 2. Monitor for signs of hypoglycemia and hyperglycemia 3. Collaborate with interdisciplinary team and initiate plan and interventions as ordered 4. Monitor patient's weight 5. Assist patient with meals/food selection 6. Assist patient with eating 7. Allow adequate time for meals 8. Provide pleasant environment during mealtime 9. Increase social contact during mealtimes 10. Plan activities to conserve energy 11. Encourage/perform oral hygiene as appropriate 12. Encourage patient to take dietary supplement as ordered 13. Collaborate with clinical card tender 14. Include patient/ patient's truck sales representative in decisions related to nutrition Outcome: Progressing Note: Evaluation of progress towards goal: pt tolerating ordered diet at this time. Will continue to monitor/assess for duration of shift. Problem: Urinary Incontinence Goal: Perineal skin integrity is maintained or improved Description: INTERVENTIONS 1. Assess genitourinary system, perineal skin, labs (urinalysis), and history of incontinence to include past management, aggravating, and alleviating factors 2. Keep skin clean and dry 3. Apply skin protectant 4. Develop skin care regimen 5. Provide privacy when changing patients incontinence device to maintain their dignity 6. Consider placing an indwelling catheter 7. Collaborate with interdisciplinary team and initiate plans and interventions as needed Outcome: Progressing Note: Evaluation of progress towards goal: no new perineal breakdown noted at this time. Will continue to monitor/assess for duration of shift. * Discharge Planning Note - ESTHER Prasad - 05/18/2025 1:50 PM EST Ongoing Assessment for Discharge Needs Reviewed discharge milestones and patient needs related to discharge plan. Current estimated discharge date of May 18, 2025 has been reviewed by treatment team. [facility] can accept tomorrow. They did the cost analysis for the iv antibiotics that she is on until 05-26. updated. storage brine worker to follow and assist with appropriate transition plans. - ESTHER Prasad 05/18/25 1:51 PM ' Ongoing Assessment for Discharge Needs Flowsheet Row Most Recent Value Referral To Community Referrals / Resources Provided Denies needs Services Requested Patient expects to be discharged to: SNF Does the patient wish to have family/friend/caregiver involved in their discharge planning? No, thepatient does not wish to have family/friend/caregiver involved in their discharge planning Discharge Disposition SNF Facility/Service Name N/A SNF Name [facility] Accepted? Yes Does the patient need discharge transportation arranged? No Mobility issues discussed with transportation provider No Patient choice offered Yes List Provided Yes [facility] List Provided Shelter Facility * Discharge Planning Note - Anabel Tan - 05/18/2025 12:10 PM EST DISCHARGE PLANNING NOTE CRF sent to [facility] (P# ; F# ) * Plan of Care - David Mascorro RCP - 05/18/2025 3:42 AM EST Problem: Inadequate Breathing Pattern Goal: Patient will achieve/maintain normal respiratory rate/effort Description: Patient's goal is: to return to baseline respiratory status prior to discharge INTERVENTIONS 1. Assess and monitor respiratory rate, effort, breathing pattern, and oxygenation 2. Monitor patient for restlessness, anxiety, air hunger 3. Assess physical activity tolerance 4. Assess tobacco history; ask, advise, and refer as appropriate 5. Collaborate with interdisciplinary team and initiate plans/interventions as needed Outcome: Progressing Note: Evaluation of progress towards goal: stable Respiratory Therapy Clinical Practice Guidelines Consult Vital Signs BP: 135/46 Pulse: 60 Resp: 12 SpO2: 98 % O2 Device: Non-invasive mask (BiPap/CPAP) Respiratory Assessment Assessment Type: Assess only Level of Consciousness: Alert Respiratory Pattern: Regular Chest Assessment: Chest expansion symmetrical Bilateral Breath Sounds: Diminished R Breath Sounds: Diminished Readings Vt Spontaneous (mL): 454 mL Minute Ventilation (L/min): 5.5 L/min PIP Observed (cm H2O): 15 cm H2O Total Rate : 12 Patient Active Problem List Diagnosis Respiratory failure ([facility] [place]) Acute exacerbation of CHF (congestive heart failure) ([facility] [place]) Last Chest XRAY: Reviewed Pulmonary History: resp failure/CHF RT Reassessment Due In: 12 hours Bronchodilator Respiratory Rate Level 1: Less than 20 Dyspnea Level 1: No SOB Breath Sounds Level 2: Diminished and/or faint wheezes Respiratory History Level 2: Positive risk factors including but not limited to: History of smoking; History of pulmonary complications ; Smoke inhalation, physical/chemical trauma to the lung or upper airway Oxygen to Keep SpO2 Greater Than Or Equal To 92% Level 2: 1-3 LPM 25%-35% or NIV 41 - 50% Peak Flow ([facility] Only) Home Therapy: Not Applicable Patients Current Level & Intervention: 1 Every 4 hours PRN for wheezing via nebulizer * Plan of Care - Anne Marie Hawkins RN - 05/18/2025 12:38 AM EST Problem: Pain Goal: Patient goal is pain score less than 4, able to rest, and participant in treatment plan as appropriate Description: INTERVENTIONS: 1. Encourage patient or legal truck sales representative to report early pain and ask for pain medicine when needed 2. Assess pain using appropriate pain scale and include the scale used when documenting 3. Administer analgesics based on type and severity of pain and evaluate response within appropriate time frame 4. Implement non-pharmacological measures as appropriate and evaluate response 5. Consider cultural and social influences on pain and pain management 6. Notify LIP if interventions ineffective or patient reports new pain 7. Monitor vital signs including pulse ox, end-tidal CO2 based on pain intervention 8. Reassess pain per policy 9. Teach patient or legal truck sales representative interventions for comforting Outcome: Progressing Note: Evaluation of progress towards goal: Patient denies pain at this time. Problem: Safety Goal: Patient will be injury free during hospitalization Description: INTERVENTIONS: 1. Assess patient's risk for falls and implement fall prevention plan of care per policy 2. Provide and maintain a safe environment 3. Proper use of double Identifiers 4. Medication administration using the 5 rights 5. Hand hygiene 6. Specimens are labeled at the bedside 7. Instruct patient/ patient truck sales representative about use of safety devices 8. Include patient/ patient truck sales representative in decisions related to safety Outcome: Progressing Note: Evaluation of progress towards goal: Patient safety being supervised at this time. Problem: Inadequate Breathing Pattern Goal: Patient will achieve/maintain normal respiratory rate/effort Description: Patient's goal is: to return to baseline respiratory status prior to discharge INTERVENTIONS 1. Assess and monitor respiratory rate, effort, breathing pattern, and oxygenation 2. Monitor patient for restlessness, anxiety, air hunger 3. Assess physical activity tolerance 4. Assess tobacco history; ask, advise, and refer as appropriate 5. Collaborate with interdisciplinary team and initiate plans/interventions as needed Outcome: Progressing Note: Evaluation of progress towards goal: Patient remains on 3LNC vs Bipap in order to maintain adequate respiratory status. Problem: Potential for Compromised Skin Integrity Goal: Skin integrity is maintained or improved Description: Patient's goal is: to have no new skin breakdown for duration of stay INTERVENTIONS 1. Perform initial skin assessment on admission and as needed 2. Turn patient every 2 hours and PRN 3. Relieve pressure to bony prominences 4. Avoid shearing 5. Keep skin clean and dry 6. Alternate a full bath with partial baths for elderly 7. Apply lotion/moisturizer on skin 8. Monitor patient's hygiene practices 9. Float heels 10. Collaborate with interdisciplinary team and initiate plans and interventions as needed Outcome: Not Progressing Note: Evaluation of progress towards goal: Patient educated on the importance of q2h turns/repositioning in order to maintain skin integrity. Patient verbalizes understanding, but needs reinforcementas she does not allow nurse to turn her q2h, only when she states she is uncomfortable. Problem: Urinary Incontinence Goal: Perineal skin integrity is maintained or improved Description: INTERVENTIONS 1. Assess genitourinary system, perineal skin, labs (urinalysis), and history of incontinence to include past management, aggravating, and alleviating factors 2. Keep skin clean and dry 3. Apply skin protectant 4. Develop skin care regimen 5. Provide privacy when changing patients incontinence device to maintain their dignity 6. Consider placing an indwelling catheter 7. Collaborate with interdisciplinary team and initiate plans and interventions as needed Outcome: Not Progressing Note: Evaluation of progress towards goal: Patient continues to require ex cath d/t incontinence. Problem: Cardiovascular - Adult Goal: Maintains optimal cardiac output and hemodynamic stability Description: Patient's goal is: INTERVENTIONS: 1. Monitor vital signs, rhythm, and trends 2. Monitor for bleeding, hypotension and signs of decreased cardiac output 3. Administer ordered vasoactive medications to optimize hemodynamic stability 4. Monitor arterial and/or venous puncture sites for bleeding and/or hematoma 5. Assess quality of pulses, skin color and temperature Outcome: Progressing Note: Evaluation of progress towards goal: Patient hemodynamically stable at this time. Will continue to assess through shift duration. * PT/OT/ASSISTANT TODDLER TEACHER - MULU Rick - 05/17/2025 1:23 PM EST Occupational Therapy Treatment Discharge Recommendations for Safe Patient Transition OT Discharge Disposition Recommendation: Post acute - moderate OT Post Acute Moderate Rehab Needs: Recommend moderate intensity rehab, Tolerate 1-2 hrs of therapy3-5 days/wk, Subacute or chronic functional impairment Current Impairments Informing Therapy Recommendation: Ambulation status/safety, Fall risk, ADL status, Endurance level 6 Clicks: Daily Activity Putting on and taking off regular lower body clothing?: Total Bathing (including washing, rinsing, drying)?: A lot Toileting, which includes using toilet, bedpan or urinal?: Total Putting on and taking off regular upper body clothing?: A lot Taking care of personal grooming such as brushing teeth?: A little Eating meals?: A little Scoring Daily Activity Raw Score: 12 CMS G Code Modifier: CL OT Treatment/Interventions: ADL retraining, Functional transfer training, UE strengthening/ROM, Endurance training, Patient/family training, Balance, Bed mobility, Compensatory technique education, Functional activities OT Frequency: 5-6days/week OT Duration: LOS Assessment Patient Assessment Therapy Problem List: Decreased ADL status, Decreased balance, Decreased endurance, Decreased fine motor, Decreased gross motor, Decreased high-level ADLs, Decreased mobility, Decreased safe judgement during ADL, Decreased self- care trans, Decreased UE strength Patient Response to Treatment: Slow progress, decreased activity tolerance Mood/Affect: Appropriate for circumstances Rehab Prognosis: Good, With continued OT status post acute discharge Visit RN Communication: Yes Medical Record Reviewed: Yes OT Type of Visit: Treatment Precautions Activity: Okay to see per RN Equipment: gait belt, boni stedy, neph tube, tovar Telemetry/Dev Technical Mgr: Yes Oxygen Used: 4L Other: high fall risk Pain Assessment Pain Assessment: No/denies pain ADL / IADL Other: Pt declined ADLs this date. Home Management - IADL Other: Pt declined ADLs this date. Hearing / Speech / Vision Hearing: Within Functional Limits Speech: Within Functional Limits Cognition Orientation Level: Oriented X4 Bed Mobility Supine to Sit: Mod assist (x2) Other: HOB elevated, pt cued for proper technique and sequencing with inc time/effort to complete. Mod A x2 to progress trunk/hips. Pt seated in chair at exit with call light within reach, spouse present, RN aware. Transfers Sit to Stand: Mod assist (x2) Stand to Sit: Mod assist (x2) Bed to Chair: Total assist (boni stedy) Other: Pt completed multiple STS into boni stedy with mod A x2 to achieve full stand. cues providedfor proper technique, TKE, and to bring hips forward. Pt stands on bent knees with heavy foward trunk flexion. Gait Other: Not appropriate at this time. Pt unable to stand fully upright. Balance Sitting Balance: Static: Fair Sitting Balance: Dynamic: Fair Standing Balance: Static: Fair (-) Standing Balance: Dynamic: Poor Other: Pt sat unsupported ~10 mins between EOB and chair with intermittent UE support. Pt stood x4 attempts in boni stedy stood <30 sec each time with poor tolerance. Activity Tolerance Endurance: Tolerates 30 minutes activity with rest breaks Other: Frequent rest breaks as needed. Pt with poor tolerance to activity this date. 05/17/25 1052 UE ROM Scapular retraction x Shoulder horizontal abduction/adduction x Elbow flexion/extension x Other BUE AROM Repetitions x10 Plan Occupational Therapy Care Plan Occupational Therapy Care Plan (Active) Template: OT - Occupational Therapy Problem: Activity Tolerance Dates: Start: 05/10/25 Disciplines: OT Goal: No limitations to activity tolerance Dates: Start: 05/10/25 Expected End: 06/03/25 Description: Goal Description: Disciplines: OT Outcomes Date/Time User Outcome 05/17/25 1310 AGGIE RickA/L Not Progressing 05/13/25 1332 Lily Mao BRADEN/L Progressing Problem: Bed Mobility Dates: Start: 05/10/25 Disciplines: OT Goal: Patient will perform bed mobility with Modified [place] Dates: Start: 05/10/25 Expected End: 06/03/25 Description: Goal Description: Disciplines: OT Outcomes Date/Time User Outcome 05/17/25 1310 Lily Mao BRADEN/L Not Progressing 05/13/25 1332 Lily Mao BRADEN/L Progressing Problem: Functional Mobility Dates: Start: 05/10/25 Disciplines: OT Goal: Patient will perform functional mobility with Modified [place] Dates: Start: 05/10/25 Expected End: 06/03/25 Description: Goal Description: Disciplines: OT Problem: Other (Customize) Dates: Start: 05/10/25 Disciplines: OT Goal: Improve Dates: Start: 05/10/25 Expected End: 06/03/25 Description: Pt will complete all areas of ADL Tasks at Mod I with use of DME as needed and good safety awareness Disciplines: OT Problem: Sitting Balance Dates: Start: 05/10/25 Disciplines: OT Goal: Improve balance to normal Dates: Start: 05/10/25 Expected End: 06/03/25 Description: Static Dynamic Disciplines: OT Outcomes Date/Time User Outcome 05/17/25 1310 AGGIE RickA/L Progressing 05/13/25 1332 Lily Mao BRADEN/L Progressing Problem: Standing Balance Dates: Start: 05/10/25 Disciplines: OT Goal: Improve balance to good Dates: Start: 05/10/25 Expected End: 06/03/25 Description: Static Dynamic Disciplines: OT Outcomes Date/Time User Outcome 05/17/25 1310 Lily Mao BRADEN/L Not Progressing 05/13/25 1332 Lily Mao BRADEN/L Progressing Problem: Strength Dates: Start: 05/10/25 Disciplines: OT Goal: Improve strength Dates: Start: 05/10/25 Expected End: 06/03/25 Description: Pt will tolerate BUE HEP to progress stamina to care for self Disciplines: OT Outcomes Date/Time User Outcome 05/17/25 1310 SAMPSON Rick/Nestor Not Progressing 05/13/25 1332 MULU Rick Progressing Problem: Transfers Dates: Start: 05/10/25 Disciplines: OT Goal: Patient will perform transfers with Modified [place] Dates: Start: 05/10/25 Expected End: 06/03/25 Description: Goal Description: Disciplines: OT Outcomes Date/Time User Outcome 05/17/25 1310 SAMPSON Rick/Nestor Not Progressing 05/13/25 1332 SAMPSON Rick/Nestor Progressing Occupational Therapy Care Plan (Resolved) There are no resolved problems. Principal Problem: Respiratory failure ([facility]) Active Problems: Acute exacerbation of CHF (congestive heart failure) ([facility]) Cosigned by Alejandra Charlton OT/L at 05/17/2025 2:21 PM EST Associated attestation - Alejandra Charlton OT/Nestor - 05/17/2025 2:21 PM EST I have reviewed and agree with this note and education documentation for this visit. * PT/OT/ASSISTANT TODDLER TEACHER - Ross Antonio, ABIODUN - 05/17/2025 1:19 PM EST Physical Therapy Treatment Discharge Recommendations for Safe Patient Transition PT Discharge Disposition Recommendation: Post acute - moderate PT Post Acute Moderate Rehab Needs: Tolerate 1-2 hrs of therapy 3-5 days/wk, Recommend moderate intensity rehab, Subacute or chronic functional impairment Current Impairments Informing Therapy Recommendation: Ambulation status/safety, Fall risk, ADL status, Endurance level 6 Clicks: Basic Mobility Turning from your back to your side while in a flat bed without using bed rails?: A lot Moving from lying on your back to sitting on side of flat bed without using bed rails?: A lot Moving to and from bed to a chair (including w/c)?: Total Standing up from a chair using your arms (e.g. w/c or bedside chair)?: A lot To walk in hospital room?: Total Climbing 3-5 steps with a railing?: Total Scoring 6 Clicks: Basic Mobility Raw Score: 9 CMS G Code Modifier: CL Therapy Plan PT Treatment/Interventions: Functional transfer training, LE strengthening/ROM, Endurance training,Balance, Stair training, Bed mobility, Gait training, Functional activities, Neuromuscular reeducation PT Frequency: 5-6days/week PT Duration: Until goals met Assessment Patient Assessment Therapy Problem List: Decreased ADL status, Decreased balance, Decreased endurance, Decreased fine motor, Decreased gross motor, Decreased high-level ADLs, Decreased mobility, Decreased safe judgement during ADL, Decreased self- care trans, Decreased UE strength Patient Response to Treatment: Slow progress, decreased activity tolerance Mood/Affect: Appropriate for circumstances Rehab Prognosis: Good, With continued PT status post acute discharge Visit RN Communication: Yes Medical Record Reviewed: Yes PT Type of Visit: Treatment Precautions Activity: Okay to see per RN Equipment: gait belt, boni stedygia Telemetry/Dev Technical Mgr: Yes Oxygen Used: 4L via [place] Other: high fall risk, neph tube Pain Assessment Pain Assessment: No/denies pain Bed Mobility Supine to Sit: Mod assist (x2) Sit to Supine: Unable to assess Other: w/ HOB elevated pt sat EOB>L requiring Mod A x2 to bring trunk off bed and hips to EOB, initially requiring R OIL WELL SERVICE OPERATOR HELPER to bring trunk over, progressing to heavy bedrail usage. Pt seated in recliner at end of tx w/ BLE elevated, call light in reach, and present Transfers Sit to Stand: Mod assist (x2) Stand to Sit: Mod assist (x2) Bed to Chair: Total assist (via boni stedy) Other: Pt completed STS 3x into boni stedy requiring Mod A x2 to clear paddles, pt unable to bring hips forward to come to full standing position when provided Mod/Max A at sacrum. Poor tolerance to standing, about 20 seconds on longest attempt. Pt transferred to chair via boni stedy Gait Other: unsafe to attempt, only able to tolerate about 20 seconds standing, unable to attain full standing position in boni stedy Balance Sitting Balance: Static: Fair Sitting Balance: Dynamic: Fair Standing Balance: Static: Fair (-) Standing Balance: Dynamic: Poor Other: Pt initially requiring Min A at trunk when seated EOB, progressing to CGA when HOB flattened. Poor tolerance to standing, unable to attain full standing position when provided Mod A x2 howeverno LOB Activity Tolerance Endurance: Tolerates >30 minutes activity with rest breaks Other: Fair/poor tolerance, limited by weakness, fatigue, and anxiety. Rest breaks taken throughout. SpO2 remained WNL on 4L 05/17/25 1051 LE Seated LE seated exercises performed? Yes Ankle pumps x Long arc quads x Seated marching x Other BLE AAROM performed while seated in chair to improve strength and function. Cues given for technique and pacing, assist given to achieve full ROM Repetitions 10 Plan Physical Therapy Care Plan Physical Therapy Care Plan (Active) Template: PT - Physical Therapy Problem: Activity Tolerance Dates: Start: 05/10/25 Disciplines: PT Goal: Tolerate > 30 minutes of activity WITH rest breaks Dates: Start: 05/10/25 Expected End: 06/10/25 Disciplines: PT Outcomes Date/Time User Outcome 05/17/25 1150 Ross Antonio PTA Progressing 05/13/25 1330 Ross Antonio PTA Progressing Goal Note filed on 05/17/25 1150 by Ross Antonio PTA Evaluation of progress towards goal: Problem: Bed Mobility Dates: Start: 05/10/25 Disciplines: PT Goal: Patient will perform bed mobility with Contact Guard Dates: Start: 05/10/25 Expected End: 06/10/25 Description: Supine<>sit CGA Disciplines: PT Outcomes Date/Time User Outcome 05/17/25 1150 Ross Antonio PTA Progressing 05/13/25 1330 Ross Antonio PTA Progressing Goal Note filed on 05/17/25 1150 by Ross Antonio PTA Evaluation of progress towards goal: Problem: Gait Dates: Start: 05/10/25 Disciplines: PT Goal: Patient will perform gait with Minimum Assist Dates: Start: 05/10/25 Expected End: 06/10/25 Description: Pt to amb 30' with RW and Min assist Disciplines: PT Outcomes Date/Time User Outcome 05/17/25 1150 Ross Antonio PTA Not Progressing 05/13/25 1330 Ross Antonio PTA Not Progressing Goal Note filed on 05/17/25 1150 by Ross Antonio PTA Evaluation of progress towards goal: Problem: Standing Balance Dates: Start: 05/10/25 Disciplines: PT Goal: Improve balance to good Dates: Start: 05/10/25 Expected End: 06/10/25 Description: Pt will demonstrate good balance during amb with use of RW for support Disciplines: PT Outcomes Date/Time User Outcome 05/17/25 1150 Ross Antonio PTA Progressing 05/13/25 1330 Ross Antonio PTA Progressing Goal Note filed on 05/17/25 1150 by Ross Antonio PTA Evaluation of progress towards goal: Problem: Strength Dates: Start: 05/10/25 Disciplines: PT Goal: Improve strength Dates: Start: 05/10/25 Expected End: 06/10/25 Description: Pt to improve LLE strength to 4/5 Disciplines: PT Outcomes Date/Time User Outcome 05/17/25 1150 Ross Antonio PTA Progressing 05/13/25 1330 Ross Antonio PTA Progressing Goal Note filed on 05/17/25 1150 by Ross Antonio PTA Evaluation of progress towards goal: Problem: Transfers Dates: Start: 05/10/25 Disciplines: PT Goal: Patient will perform transfers with Minimum Assist Dates: Start: 05/10/25 Expected End: 06/10/25 Description: Sit<>stand with Min assist and use of RW for support Disciplines: PT Outcomes Date/Time User Outcome 05/17/25 1150 Ross Antonio PTA Progressing 05/13/25 1330 Ross Antonio PTA Progressing Goal Note filed on 05/17/25 1150 by Ross Antonio PTA Evaluation of progress towards goal: Physical Therapy Care Plan (Resolved) There are no resolved problems. Principal Problem: Respiratory failure ([facility]) Active Problems: Acute exacerbation of CHF (congestive heart failure) ([facility]) Cosigned by Mayi Pagan, PT at 05/17/2025 2:34 PM EST Associated attestation - Mayi Pagan, PT - 05/17/2025 2:34 PM EST I have reviewed and agree with this note and education documentation for this visit. * Plan of Care - Naomi Carmona RN - 05/17/2025 11:32 AM EST Problem: Pain Goal: Patient goal is pain score less than 4, able to rest, and participant in treatment plan as appropriate Description: INTERVENTIONS: 1. Encourage patient or legal truck sales representative to report early pain and ask for pain medicine when needed 2. Assess pain using appropriate pain scale and include the scale used when documenting 3. Administer analgesics based on type and severity of pain and evaluate response within appropriate time frame 4. Implement non-pharmacological measures as appropriate and evaluate response 5. Consider cultural and social influences on pain and pain management 6. Notify LIP if interventions ineffective or patient reports new pain 7. Monitor vital signs including pulse ox, end-tidal CO2 based on pain intervention 8. Reassess pain per policy 9. Teach patient or legal truck sales representative interventions for comforting Outcome: Progressing Note: Evaluation of progress towards goal: Patient's pain level assessed using appropriate scale. Patient denies pain at this time. PRN pain medications are available and administered as ordered/as needed. Patient is able to rest and participate in the treatment plan as appropriate. Problem: Infection Goal: Absence of infection during hospitalization Description: INTERVENTIONS 1. Assess and monitor for signs and symptoms of infection. 2. Monitor lab/diagnostic results. 3. Monitor all insertion sites i.e., indwelling lines, tubes and drains. 4. Monitor endotracheal (as able) and nasal secretions for changes in amount and color. 5. Administer medications as ordered. 6. Instruct and encourage patient and family to use good hand hygiene technique. 7. Identify and instruct patient/patient truck sales representative in use of appropriate isolation precautionsfor identified infection/symptoms. 8. Provide and discuss with patient/patient truck sales representative on educational MDRO sheet. 9. Encourage and monitor nutritional status daily and consult card tender if indicated. 10. Implement neutropenic guidelines as needed. Outcome: Progressing Note: Evaluation of progress towards goal: Patient is assessed for signs and symptoms of infection.Labs, diagnostic results, vitals, and insertion sites are monitored. Antibiotics and medications are administered as ordered. Problem: Discharge Planning Goal: Discharge to post-acute care, other facility, or home with appropriate resources Description: Patient's goal is: [place] INTERVENTIONS 1. Conduct assessment to determine patient/family and health care team treatment goals, and need for post-acute services based on payer coverage, community resources, and patient preferences, and barriers to discharge 2. Coordinate with Social work, Care Navigation, and Utilization Review to arrange appropriate level of services according to patient's needs based on patient preference and payer coverage in collaboration with the physician and health care team 3. Address psychosocial, clinical, and financial barriers to discharge as identified in assessment in conjunction with the patient/family and health care team 4. Consult appropriate ancillary services (i.e.. PT/OT/ST, etc) as needed 5. Communicate with and update the patient/family, physician, and health care team regarding progress on the discharge plan 6. Identify discharge learning needs (meds, wound care, etc). 7. Arrange for needed discharge transportation as appropriate Outcome: Progressing Note: Evaluation of progress towards goal: Patient is assessed to determine any post-acute service neeeds for discharge. Appropriate level of services are coordinated based on patient's needed for discharge planning. Problem: Cardiovascular - Adult Goal: Maintains optimal cardiac output and hemodynamic stability Description: Patient's goal is: INTERVENTIONS: 1. Monitor vital signs, rhythm, and trends 2. Monitor for bleeding, hypotension and signs of decreased cardiac output 3. Administer ordered vasoactive medications to optimize hemodynamic stability 4. Monitor arterial and/or venous puncture sites for bleeding and/or hematoma 5. Assess quality of pulses, skin color and temperature Outcome: Progressing Note: Evaluation of progress towards goal: Vital signs, rhythm, and trends are monitored for any changes. Signs of bleeding, decreased cardiac output, and hypotension is monitored. Quality of pulses,skin color, and temperature is assessed to maintain optimal cardiac output and hemodynamic stability. * Plan of Care - Carmen Zamorano, [facility] - 05/17/2025 11:14 AM EST Problem: Inadequate Breathing Pattern Goal: Patient will achieve/maintain normal respiratory rate/effort Description: Patient's goal is: to return to baseline respiratory status prior to discharge INTERVENTIONS 1. Assess and monitor respiratory rate, effort, breathing pattern, and oxygenation 2. Monitor patient for restlessness, anxiety, air hunger 3. Assess physical activity tolerance 4. Assess tobacco history; ask, advise, and refer as appropriate 5. Collaborate with interdisciplinary team and initiate plans/interventions as needed Outcome: Progressing Note: Evaluation of progress towards goal: ProgressingRespiratory Therapy Clinical Practice Guidelines Consult Clinical Practice Guidelines Ordered Consult Assessment: Consult, Bronchodilator, NIV CPAP Oxygen Indications: Hypoxemia Bronchodilator Indications: Bronchospasm/wheezing Bronchodilator Total: 1 Vital Signs Pulse: 68 Heart Rate Source: Monitor Resp: 19 SpO2: 100 % O2 Device: Nasal cannula O2 Flow Rate (L/min): 3 L/min Patient Position: Semi-fowlers Respiratory Assessment Assessment Type: Assess only Level of Consciousness: Alert, Responds to Voice Respiratory Pattern: Regular Chest Assessment: Chest expansion symmetrical Bilateral Breath Sounds: Clear, Diminished R Breath Sounds: Diminished L Breath Sounds: Diminished Cough Cough: None Patient Active Problem List Diagnosis Respiratory failure ([facility]) Acute exacerbation of CHF (congestive heart failure) ([facility]) Last Chest XRAY: Reviewed Pulmonary History:Respiratory Failure RT Reassessment Due In: 12 hours No CPG grid assessment at this time * Discharge Planning Note - Bibiana Ribera RN - 05/17/2025 10:39 AM EST Ongoing Assessment for Discharge Needs Reviewed discharge milestones and patient needs related to discharge plan. Current estimated discharge date of May 19, 2025 has been reviewed by treatment team. Ongoing Assessment for Discharge Needs Flowsheet Row Most Recent Value Referral To Community Referrals / Resources Provided Denies needs Services Requested Patient expects to be discharged to: SNF Does the patient wish to have family/friend/caregiver involved in their discharge planning? No, thepatient does not wish to have family/friend/caregiver involved in their discharge planning Discharge Disposition SNF Facility/Service Name N/A SNF Name [facility] Accepted? Yes Does the patient need discharge transportation arranged? No Mobility issues discussed with transportation provider No Patient choice offered Yes List Provided Yes [facility] List Provided Shelter Facility Per RN during discharge transition rounds, barriers to discharge are: tovar, IV antibiotics, final ID plan. Discharge Plan: Patient will discharge to [facility] when medically ready, no precert needed. Accounting Manager Cpa will continue to follow for any discharge needs. - Bibiana Ribera RN 05/17/25 10:40 AM * Plan of Care - Rodrigo Almanza RCP - 05/16/2025 10:58 PM EST Problem: Inadequate Breathing Pattern Goal: Patient will achieve/maintain normal respiratory rate/effort Description: Patient's goal is: to return to baseline respiratory status prior to discharge INTERVENTIONS 1. Assess and monitor respiratory rate, effort, breathing pattern, and oxygenation 2. Monitor patient for restlessness, anxiety, air hunger 3. Assess physical activity tolerance 4. Assess tobacco history; ask, advise, and refer as appropriate 5. Collaborate with interdisciplinary team and initiate plans/interventions as needed Outcome: Progressing Note: Evaluation of progress towards goal: ProgressingRespiratory Therapy Clinical Practice Guidelines Consult Clinical Practice Guidelines Ordered Consult Assessment: Consult, Bronchodilator, NIV CPAP Bronchodilator Indications: Bronchospasm/wheezing Bronchodilator Total: 1 Vital Signs Pulse: 69 Heart Rate Source: Monitor Resp: 13 SpO2: 98 % O2 Device: Non-invasive mask (BiPap/CPAP) FiO2 (%): 30 % Patient Position: Semi-fowlers Respiratory Assessment Assessment Type: Subsequent assessment Level of Consciousness: Alert, Responds to Voice Respiratory Pattern: Regular Chest Assessment: Chest expansion symmetrical Bilateral Breath Sounds: Clear, Diminished Readings Vt Spontaneous (mL): 385 mL Minute Ventilation (L/min): 8 L/min PIP Observed (cm H2O): 17 cm H2O Total Rate : 27 Leakage: 0 Patient Active Problem List Diagnosis Respiratory failure ([facility]) Acute exacerbation of CHF (congestive heart failure) ([facility] [place]) Last Chest XRAY: Reviewed Pulmonary History: Reviewed RT Reassessment Due In: 12 hours Bronchodilator Respiratory Rate Level 3: 20-25 Dyspnea Level 1: No SOB Breath Sounds Level 1: Clear Respiratory History Level 1: None Oxygen to Keep SpO2 Greater Than Or Equal To 92% Level 1: Room air or baseline O2 ; NIV less than or equal to 40% Peak Flow ([facility] Only) Home Therapy: Not Applicable Patients Current Level & Intervention: 1 Every 4 hours PRN for wheezing via nebulizer * Plan of Care - Arleth Stack RN - 05/16/2025 10:10 PM EST Problem: Pain Goal: Patient goal is pain score less than 4, able to rest, and participant in treatment plan as appropriate Description: INTERVENTIONS: 1. Encourage patient or legal truck sales representative to report early pain and ask for pain medicine when needed 2. Assess pain using appropriate pain scale and include the scale used when documenting 3. Administer analgesics based on type and severity of pain and evaluate response within appropriate time frame 4. Implement non-pharmacological measures as appropriate and evaluate response 5. Consider cultural and social influences on pain and pain management 6. Notify LIP if interventions ineffective or patient reports new pain 7. Monitor vital signs including pulse ox, end-tidal CO2 based on pain intervention 8. Reassess pain per policy 9. Teach patient or legal truck sales representative interventions for comforting Outcome: Progressing Note: Evaluation of progress towards goal: Patient's pain was assessed using the 0-10 adult pain scale. Patient denies pain at this time. Patient has PRN pain medication ordered. Problem: Safety Goal: Patient will be injury free during hospitalization Description: INTERVENTIONS: 1. Assess patient's risk for falls and implement fall prevention plan of care per policy 2. Provide and maintain a safe environment 3. Proper use of double Identifiers 4. Medication administration using the 5 rights 5. Hand hygiene 6. Specimens are labeled at the bedside 7. Instruct patient/ patient truck sales representative about use of safety devices 8. Include patient/ patient truck sales representative in decisions related to safety Outcome: Progressing Note: Evaluation of progress towards goal: Patient remains free from falls or injury at this time. Patient in bed at lowest position, wheels locked, 2/4 side rails up, personal items and call light within reach. Problem: Infection Goal: Absence of infection during hospitalization Description: INTERVENTIONS 1. Assess and monitor for signs and symptoms of infection. 2. Monitor lab/diagnostic results. 3. Monitor all insertion sites i.e., indwelling lines, tubes and drains. 4. Monitor endotracheal (as able) and nasal secretions for changes in amount and color. 5. Administer medications as ordered. 6. Instruct and encourage patient and family to use good hand hygiene technique. 7. Identify and instruct patient/patient truck sales representative in use of appropriate isolation precautionsfor identified infection/symptoms. 8. Provide and discuss with patient/patient truck sales representative on educational MDRO sheet. 9. Encourage and monitor nutritional status daily and consult card tender if indicated. 10. Implement neutropenic guidelines as needed. Outcome: Progressing Note: Evaluation of progress towards goal: Labs monitored. Patient afebrile, VSS. No changes noted.Patient is receiving IV antibiotics. Problem: Inadequate Breathing Pattern Goal: Patient will achieve/maintain normal respiratory rate/effort Description: Patient's goal is: to return to baseline respiratory status prior to discharge INTERVENTIONS 1. Assess and monitor respiratory rate, effort, breathing pattern, and oxygenation 2. Monitor patient for restlessness, anxiety, air hunger 3. Assess physical activity tolerance 4. Assess tobacco history; ask, advise, and refer as appropriate 5. Collaborate with interdisciplinary team and initiate plans/interventions as needed Outcome: Progressing Note: Evaluation of progress towards goal: Patient is currently resting comfortably on BiPAP. SPO2 and respiratory rate being monitored. Pt encouraged to cough and deep breath. Problem: Moderate - High Risk Fall Score Description: Young Fall Score of =/> 25 or indicated by [facility] Assessment Goal: Patient should be free from fall Description: Interventions: 1. [place] to environment 2. Hourly rounds addressing the 4 P's (Pain, Positioning, Possessions, Potty) 3. Clear area of hazards (spills, clutter, electrical cords, unnecessary equipment) 4. Place equipment (bed & TV controls, call light, phone, urinal) within reach 5. Encourage patient to wear glasses and hearing aides as appropriate 6. Maintain bed in lowest position 7. Lock wheels on bed/wheelchair 8. Provide adequate lighting, including night light 9. Assess need for additional bedding, food/fluids, pain med's prior to sleep/routinely 10. Provide gripper slippers or personal non-skid footwear 11. Teach patient and patient truck sales representative to maintain environment for safety and engage in all aspects of fall prevention program 12. Remind patient to call for help before getting out of bed 13. Initiate bed/chair/exit alarms supportive devices as appropriate, (chair wedge, no-skid floor mat, raised edge mattress, hip protectors) 14. Locate patient bed assignment for optimal visualization 15. Evaluate and identify Safe Patient Handling Equipment needs 16. Provide supervision when out of bed or chair 17. Utilize gait belt as needed to assist with ambulation 18. Place adaptive equipment (cane, walker) within reach 19. Request patient truck sales representative bring adaptive equipment/mobility aids from home or obtain and provide as needed 20. Consult pharmacy regarding effects of med's affecting mobility, cognition, and alternatives 21. Obtain physician order for PT if risk factors associated with mobility are present 22. Obtain physician order for OT as appropriate 23. Utilize diversional activities 24. Educate patient and patient truck sales representative how to maintain a safe environment during visitationtimes (notify nurse prior to leaving bedside) 25. Consider appropriateness of medical or non-director medical science 26. Set up voiding schedule as appropriate (every 2 hours) Outcome: Progressing Note: Evaluation of progress towards goal: Patient remains free from falls at this time. High fall risk interventions in place. * Plan of Care - Naomi Carmona RN - 05/16/2025 6:46 PM EST Problem: Pain Goal: Patient goal is pain score less than 4, able to rest, and participant in treatment plan as appropriate Description: INTERVENTIONS: 1. Encourage patient or legal truck sales representative to report early pain and ask for pain medicine when needed 2. Assess pain using appropriate pain scale and include the scale used when documenting 3. Administer analgesics based on type and severity of pain and evaluate response within appropriate time frame 4. Implement non-pharmacological measures as appropriate and evaluate response 5. Consider cultural and social influences on pain and pain management 6. Notify LIP if interventions ineffective or patient reports new pain 7. Monitor vital signs including pulse ox, end-tidal CO2 based on pain intervention 8. Reassess pain per policy 9. Teach patient or legal truck sales representative interventions for comforting 05/16/2025 184 by LIANE Salgado Outcome: Progressing Note: Evaluation of progress towards goal: Patient pain score assessed using appropriate scale. PRNpain medications are available and administered as needed/as ordered. Problem: Infection Goal: Absence of infection during hospitalization Description: INTERVENTIONS 1. Assess and monitor for signs and symptoms of infection. 2. Monitor lab/diagnostic results. 3. Monitor all insertion sites i.e., indwelling lines, tubes and drains. 4. Monitor endotracheal (as able) and nasal secretions for changes in amount and color. 5. Administer medications as ordered. 6. Instruct and encourage patient and family to use good hand hygiene technique. 7. Identify and instruct patient/patient truck sales representative in use of appropriate isolation precautionsfor identified infection/symptoms. 8. Provide and discuss with patient/patient truck sales representative on educational MDRO sheet. 9. Encourage and monitor nutritional status daily and consult card tender if indicated. 10. Implement neutropenic guidelines as needed. 05/16/[id number] by LIANE Salgado Outcome: Progressing Note: Evaluation of progress towards goal: Patient is assessed for signs and symptoms of infection.Labs, diagnostic results, insertion sites, and vitals are monitored. Antibiotics and medications are administered as ordered. 05/16/[id number] by LIANE Salgado Note: Evaluation of progress towards goal: Patient is monitored for signs/symptoms Problem: Discharge Planning Goal: Discharge to post-acute care, other facility, or home with appropriate resources Description: Patient's goal is: [place] INTERVENTIONS 1. Conduct assessment to determine patient/family and health care team treatment goals, and need for post-acute services based on payer coverage, community resources, and patient preferences, and barriers to discharge 2. Coordinate with Social work, Care Navigation, and Utilization Review to arrange appropriate level of services according to patient's needs based on patient preference and payer coverage in collaboration with the physician and health care team 3. Address psychosocial, clinical, and financial barriers to discharge as identified in assessment in conjunction with the patient/family and health care team 4. Consult appropriate ancillary services (i.e.. PT/OT/ST, etc) as needed 5. Communicate with and update the patient/family, physician, and health care team regarding progress on the discharge plan 6. Identify discharge learning needs (meds, wound care, etc). 7. Arrange for needed discharge transportation as appropriate Outcome: Progressing Note: Evaluation of progress towards goal: Assessments to determine any patient/family needs for post acute services are conducted appropriately. Appropriate level of services are coordinated as needed for discharge planning. Problem: Cardiovascular - Adult Goal: Maintains optimal cardiac output and hemodynamic stability Description: Patient's goal is: INTERVENTIONS: 1. Monitor vital signs, rhythm, and trends 2. Monitor for bleeding, hypotension and signs of decreased cardiac output 3. Administer ordered vasoactive medications to optimize hemodynamic stability 4. Monitor arterial and/or venous puncture sites for bleeding and/or hematoma 5. Assess quality of pulses, skin color and temperature Outcome: Progressing Note: Evaluation of progress towards goal: Vital signs, rhythm, and trends are monitored to maintain optimal cardiac output and hemodynamic stability. Signs of bleeding, hypotension, and decreased cardiac output are monitored. Quality of pulses, skin color, and temperature are assessed. * Sedation Documentation - Favian Mejia RN - 05/16/2025 2:46 PM EST Basic respiratory resuscitation equipment including Ambu bags, airway devices, suction, oxygen, blood pressure cuff appropriate to size of patient, vehicle monitor technician, pulse oximetry, ETCO2, and reversal agents are available. An emergency resuscitation cart, advanced resuscitation medications and defibrillator are availablein the immediate area. * Pre-Sedation Documentation - Demetri Begum MD - 05/16/2025 2:29 PM EST Pre Procedure Evaluation: H&P was reviewed and the patient was examined. No change has occurredin the patient's condition since the H&P was completed. ASA: 2 Mallampati: II Sedation plan and risks discussed with: patient * Discharge Planning Note - Anna Osuna RN - 05/16/2025 1:51 PM EST DISCHARGE PLANNING NOTE Chart reviewed and discussed in discharge rounds. Patient to have neph tube placed today and possibly removal of neph tube. [facility] is accepting and will be obtaining her BIPAP. Patient iscurrently with a tovar in for 7 days, will need a plan for this from uorology. She is on IV Micafungin, Ertapenum and Dapto, will need a EOT date from ID and notifiy SNF if needed. Care Navigation tocontinue to follow. * Plan of Care - Arleth Stack RN - 05/15/2025 8:30 PM EST Problem: Pain Goal: Patient goal is pain score less than 4, able to rest, and participant in treatment plan as appropriate Description: INTERVENTIONS: 1. Encourage patient or legal truck sales representative to report early pain and ask for pain medicine when needed 2. Assess pain using appropriate pain scale and include the scale used when documenting 3. Administer analgesics based on type and severity of pain and evaluate response within appropriate time frame 4. Implement non-pharmacological measures as appropriate and evaluate response 5. Consider cultural and social influences on pain and pain management 6. Notify LIP if interventions ineffective or patient reports new pain 7. Monitor vital signs including pulse ox, end-tidal CO2 based on pain intervention 8. Reassess pain per policy 9. Teach patient or legal truck sales representative interventions for comforting Outcome: Progressing Note: Evaluation of progress towards goal: Patient's pain was assessed using the 0-10 adult pain scale. Patient denies pain at this time. Problem: Safety Goal: Patient will be injury free during hospitalization Description: INTERVENTIONS: 1. Assess patient's risk for falls and implement fall prevention plan of care per policy 2. Provide and maintain a safe environment 3. Proper use of double Identifiers 4. Medication administration using the 5 rights 5. Hand hygiene 6. Specimens are labeled at the bedside 7. Instruct patient/ patient truck sales representative about use of safety devices 8. Include patient/ patient truck sales representative in decisions related to safety Outcome: Progressing Note: Evaluation of progress towards goal: Patient remains free from falls or injury at this time. Patient in bed at lowest position, wheels locked, 2/4 side rails up, personal items and call light within reach. Problem: Infection Goal: Absence of infection during hospitalization Description: INTERVENTIONS 1. Assess and monitor for signs and symptoms of infection. 2. Monitor lab/diagnostic results. 3. Monitor all insertion sites i.e., indwelling lines, tubes and drains. 4. Monitor endotracheal (as able) and nasal secretions for changes in amount and color. 5. Administer medications as ordered. 6. Instruct and encourage patient and family to use good hand hygiene technique. 7. Identify and instruct patient/patient truck sales representative in use of appropriate isolation precautionsfor identified infection/symptoms. 8. Provide and discuss with patient/patient truck sales representative on educational MDRO sheet. 9. Encourage and monitor nutritional status daily and consult card tender if indicated. 10. Implement neutropenic guidelines as needed. Outcome: Progressing Note: Evaluation of progress towards goal: Labs monitored. Patient afebrile, VSS. No changes noted.Patient is receiving IV antibiotics. Problem: Inadequate Breathing Pattern Goal: Patient will achieve/maintain normal respiratory rate/effort Description: Patient's goal is: to return to baseline respiratory status prior to discharge INTERVENTIONS 1. Assess and monitor respiratory rate, effort, breathing pattern, and oxygenation 2. Monitor patient for restlessness, anxiety, air hunger 3. Assess physical activity tolerance 4. Assess tobacco history; ask, advise, and refer as appropriate 5. Collaborate with interdisciplinary team and initiate plans/interventions as needed Outcome: Progressing Note: Evaluation of progress towards goal: Patient is currently resting comfortably on BiPAP. SPO2 and respiratory rate being monitored. Pt encouraged to cough and deep breath. Problem: Moderate - High Risk Fall Score Description: Young Fall Score of =/> 25 or indicated by [facility] Assessment Goal: Patient should be free from fall Description: Interventions: 1. [place] to environment 2. Hourly rounds addressing the 4 P's (Pain, Positioning, Possessions, Potty) 3. Clear area of hazards (spills, clutter, electrical cords, unnecessary equipment) 4. Place equipment (bed & TV controls, call light, phone, urinal) within reach 5. Encourage patient to wear glasses and hearing aides as appropriate 6. Maintain bed in lowest position 7. Lock wheels on bed/wheelchair 8. Provide adequate lighting, including night light 9. Assess need for additional bedding, food/fluids, pain med's prior to sleep/routinely 10. Provide gripper slippers or personal non-skid footwear 11. Teach patient and patient truck sales representative to maintain environment for safety and engage in all aspects of fall prevention program 12. Remind patient to call for help before getting out of bed 13. Initiate bed/chair/exit alarms supportive devices as appropriate, (chair wedge, no-skid floor mat, raised edge mattress, hip protectors) 14. Locate patient bed assignment for optimal visualization 15. Evaluate and identify Safe Patient Handling Equipment needs 16. Provide supervision when out of bed or chair 17. Utilize gait belt as needed to assist with ambulation 18. Place adaptive equipment (cane, walker) within reach 19. Request patient truck sales representative bring adaptive equipment/mobility aids from home or obtain and provide as needed 20. Consult pharmacy regarding effects of med's affecting mobility, cognition, and alternatives 21. Obtain physician order for PT if risk factors associated with mobility are present 22. Obtain physician order for OT as appropriate 23. Utilize diversional activities 24. Educate patient and patient truck sales representative how to maintain a safe environment during visitationtimes (notify nurse prior to leaving bedside) 25. Consider appropriateness of medical or non-director medical science 26. Set up voiding schedule as appropriate (every 2 hours) Outcome: Progressing Note: Evaluation of progress towards goal: Patient remains free from falls at this time. High fall risk interventions in place. Problem: Potential for Compromised Skin Integrity Goal: Skin integrity is maintained or improved Description: Patient's goal is: to have no new skin breakdown for duration of stay INTERVENTIONS 1. Perform initial skin assessment on admission and as needed 2. Turn patient every 2 hours and PRN 3. Relieve pressure to bony prominences 4. Avoid shearing 5. Keep skin clean and dry 6. Alternate a full bath with partial baths for elderly 7. Apply lotion/moisturizer on skin 8. Monitor patient's hygiene practices 9. Float heels 10. Collaborate with interdisciplinary team and initiate plans and interventions as needed Outcome: Progressing Note: Evaluation of progress towards goal: Patient repositioned every 2 hours to maintain skin integrity. Skin/wound care completed as ordered. * Plan of Care - Ross Penny RN - 05/15/2025 1:02 PM EST Problem: Knowledge Deficit Goal: Patient/patient truck sales representative demonstrates understanding of disease process, treatment plan,medications, and discharge instructions Description: INTERVENTIONS 1. Complete learning assessment and assess knowledge base 2. Provide teaching at level of understanding 3. Provide teaching via preferred learning method(s) Note: Evaluation of progress towards goal: Patient alert and doing well this morning. Will continueto monitor mentation throughout day. Updated on plan for IR tomorrow. Problem: Discharge Planning Goal: Discharge to post-acute care, other facility, or home with appropriate resources Description: Patient's goal is: [place] INTERVENTIONS 1. Conduct assessment to determine patient/family and health care team treatment goals, and need for post-acute services based on payer coverage, community resources, and patient preferences, and barriers to discharge 2. Coordinate with Social work, Care Navigation, and Utilization Review to arrange appropriate level of services according to patient's needs based on patient preference and payer coverage in collaboration with the physician and health care team 3. Address psychosocial, clinical, and financial barriers to discharge as identified in assessment in conjunction with the patient/family and health care team 4. Consult appropriate ancillary services (i.e.. PT/OT/ST, etc) as needed 5. Communicate with and update the patient/family, physician, and health care team regarding progress on the discharge plan 6. Identify discharge learning needs (meds, wound care, etc). 7. Arrange for needed discharge transportation as appropriate Outcome: Progressing Note: Evaluation of progress towards goal: Continue diuresis and BiPap. Progressing towards discharge for rehab. * Plan of Care - Kaleigh Palmer, [facility] - 05/15/2025 8:00 AM EST Problem: Inadequate Breathing Pattern Goal: Patient will achieve/maintain normal respiratory rate/effort Description: Patient's goal is: to return to baseline respiratory status prior to discharge INTERVENTIONS 1. Assess and monitor respiratory rate, effort, breathing pattern, and oxygenation 2. Monitor patient for restlessness, anxiety, air hunger 3. Assess physical activity tolerance 4. Assess tobacco history; ask, advise, and refer as appropriate 5. Collaborate with interdisciplinary team and initiate plans/interventions as needed Outcome: Progressing Note: Evaluation of progress towards goal: reviewed and continued. Respiratory Therapy Clinical Practice Guidelines Consult Clinical Practice Guidelines Ordered Consult Assessment: Consult, Broncho-pulmonary hygiene, Bronchodilator, NIV CPAP Oxygen Indications: Hypoxemia Broncho-pulmonary Hygiene Indications: To prevent/reverse atelectasis Broncho-pulmonary Hygiene Total: 1 Bronchodilator Indications: Bronchospasm/wheezing Bronchodilator Total: 1 Vital Signs Pulse: 74 Resp: 16 SpO2: 100 % O2 Device: (S) Nasal cannula (found on NC 2 lpm.) O2 Flow Rate (L/min): (S) 2 L/min Respiratory Assessment Assessment Type: Subsequent assessment Level of Consciousness: Alert Respiratory Pattern: Regular Chest Assessment: Chest expansion symmetrical Bilateral Breath Sounds: Clear, Diminished Cough Cough: Occasional, Non-productive, Strong Patient Active Problem List Diagnosis Respiratory failure ([facility]) Acute exacerbation of CHF (congestive heart failure) ([facility]) Last Chest XRAY: Reviewed Pulmonary History: see above. RT Reassessment Due In: 12 hours Bronchodilator Respiratory Rate Level 1: Less than 20 Dyspnea Level 1: No SOB Breath Sounds Level 1: Clear Respiratory History Level 2: Positive risk factors including but not limited to: History of smoking; History of pulmonary complications ; Smoke inhalation, physical/chemical trauma to the lung or upper airway Oxygen to Keep SpO2 Greater Than Or Equal To 92% Level 2: 1-3 LPM 25%-35% or NIV 41 - 50% Peak Flow ([facility] Only) Home Therapy: Not Applicable Patients Current Level & Intervention: 1 Every 4 hours PRN for wheezing via nebulizer * Plan of Care - Humberto Mario RN - 05/15/2025 1:10 AM EDT Problem: Pain Goal: Patient goal is pain score less than 4, able to rest, and participant in treatment plan as appropriate Description: INTERVENTIONS: 1. Encourage patient or legal truck sales representative to report early pain and ask for pain medicine when needed 2. Assess pain using appropriate pain scale and include the scale used when documenting 3. Administer analgesics based on type and severity of pain and evaluate response within appropriate time frame 4. Implement non-pharmacological measures as appropriate and evaluate response 5. Consider cultural and social influences on pain and pain management 6. Notify LIP if interventions ineffective or patient reports new pain 7. Monitor vital signs including pulse ox, end-tidal CO2 based on pain intervention 8. Reassess pain per policy 9. Teach patient or legal truck sales representative interventions for comforting Outcome: Progressing Note: Evaluation of progress towards goal: Pt remains free from pain at this time. Problem: Discharge Planning Goal: Discharge to post-acute care, other facility, or home with appropriate resources Description: Patient's goal is: [place] INTERVENTIONS 1. Conduct assessment to determine patient/family and health care team treatment goals, and need for post-acute services based on payer coverage, community resources, and patient preferences, and barriers to discharge 2. Coordinate with Social work, Care Navigation, and Utilization Review to arrange appropriate level of services according to patient's needs based on patient preference and payer coverage in collaboration with the physician and health care team 3. Address psychosocial, clinical, and financial barriers to discharge as identified in assessment in conjunction with the patient/family and health care team 4. Consult appropriate ancillary services (i.e.. PT/OT/ST, etc) as needed 5. Communicate with and update the patient/family, physician, and health care team regarding progress on the discharge plan 6. Identify discharge learning needs (meds, wound care, etc). 7. Arrange for needed discharge transportation as appropriate Outcome: Progressing Note: Evaluation of progress towards goal: Pt to discharge to SNF at this time. Problem: Moderate - High Risk Fall Score Description: Young Fall Score of =/> 25 or indicated by [facility] Assessment Goal: Patient should be free from fall Description: Interventions: 1. [place] to environment 2. Hourly rounds addressing the 4 P's (Pain, Positioning, Possessions, Potty) 3. Clear area of hazards (spills, clutter, electrical cords, unnecessary equipment) 4. Place equipment (bed & TV controls, call light, phone, urinal) within reach 5. Encourage patient to wear glasses and hearing aides as appropriate 6. Maintain bed in lowest position 7. Lock wheels on bed/wheelchair 8. Provide adequate lighting, including night light 9. Assess need for additional bedding, food/fluids, pain med's prior to sleep/routinely 10. Provide gripper slippers or personal non-skid footwear 11. Teach patient and patient truck sales representative to maintain environment for safety and engage in all aspects of fall prevention program 12. Remind patient to call for help before getting out of bed 13. Initiate bed/chair/exit alarms supportive devices as appropriate, (chair wedge, no-skid floor mat, raised edge mattress, hip protectors) 14. Locate patient bed assignment for optimal visualization 15. Evaluate and identify Safe Patient Handling Equipment needs 16. Provide supervision when out of bed or chair 17. Utilize gait belt as needed to assist with ambulation 18. Place adaptive equipment (cane, walker) within reach 19. Request patient truck sales representative bring adaptive equipment/mobility aids from home or obtain and provide as needed 20. Consult pharmacy regarding effects of med's affecting mobility, cognition, and alternatives 21. Obtain physician order for PT if risk factors associated with mobility are present 22. Obtain physician order for OT as appropriate 23. Utilize diversional activities 24. Educate patient and patient truck sales representative how to maintain a safe environment during visitationtimes (notify nurse prior to leaving bedside) 25. Consider appropriateness of medical or non-director medical science 26. Set up voiding schedule as appropriate (every 2 hours) Outcome: Progressing Note: Evaluation of progress towards goal: Pt remains free from falls at this time. * Plan of Care - Lori Colon RCP - 05/14/2025 7:20 PM EDT Problem: Inadequate Breathing Pattern Goal: Patient will achieve/maintain normal respiratory rate/effort Description: Patient's goal is: to return to baseline respiratory status prior to discharge INTERVENTIONS 1. Assess and monitor respiratory rate, effort, breathing pattern, and oxygenation 2. Monitor patient for restlessness, anxiety, air hunger 3. Assess physical activity tolerance 4. Assess tobacco history; ask, advise, and refer as appropriate 5. Collaborate with interdisciplinary team and initiate plans/interventions as needed Outcome: Progressing Note: Evaluation of progress towards goal: pt on and off of bipap, tolerating well. No respiratory distress at this time Respiratory Therapy Clinical Practice Guidelines Consult Vital Signs Heart Rate Source: Monitor O2 Device: Non-invasive mask (BiPap/CPAP) FiO2 (%): 30 % Patient Position: Semi-fowlers Respiratory Assessment Assessment Type: Assess only Level of Consciousness: Alert Respiratory Pattern: Regular Chest Assessment: Chest expansion symmetrical Bilateral Breath Sounds: Diminished Readings Vt Spontaneous (mL): 477 mL Minute Ventilation (L/min): 7.4 L/min PIP Observed (cm H2O): 16 cm H2O Total Rate : 15 Leakage: 16 Patient Active Problem List Diagnosis Respiratory failure ([facility]) Acute exacerbation of CHF (congestive heart failure) ([facility] [place]) Last Chest XRAY: Reviewed Pulmonary History: Reviewed RT Reassessment Due In: 12 hours Bronchodilator Respiratory Rate Level 1: Less than 20 Dyspnea Level 2: Periodic SOB Breath Sounds Level 2: Diminished and/or faint wheezes Respiratory History Level 2: Positive risk factors including but not limited to: History of smoking; History of pulmonary complications ; Smoke inhalation, physical/chemical trauma to the lung or upper airway Oxygen to Keep SpO2 Greater Than Or Equal To 92% Level 2: 1-3 LPM 25%-35% or NIV 41 - 50% Peak Flow ([facility] Only) Home Therapy: Not Applicable Patients Current Level & Intervention: 1 Every 4 hours PRN for wheezing via nebulizer * Plan of Care - SHAWANDA Chao - 05/14/2025 3:16 PM EDT Niecy seen in bed. Continues with anisocoria L>R with sluggish pupillary response. No vision loss. Per RN she is not wearing her bipap as she should be. Has clear clonus likely secondary to hypercapnia, in both arms and legs. Otherwise, nothing focal appreciated. MRA pending to rule out aneurysm compression of cranial nerves to cause anisocoria. NIH Stroke Scale 1a Level of consciousness: 0=alert; keenly responsive 1b. LOC questions: 0=Performs both tasks correctly 1c. LOC commands: 0=Performs both tasks correctly 2. Best Gaze: 0=normal 3. Visual: 0=No visual loss 4. Facial Palsy: 0=Normal symmetric movement 5a. Motor left arm: 0=No drift, limb holds 90 (or 45) degrees for full 10 seconds 5b. Motor right arm: 0=No drift, limb holds 90 (or 45) degrees for full 10 seconds 6a. motor left le=No drift, limb holds 90 (or 45) degrees for full 10 seconds 6b Motor right le=No drift, limb holds 90 (or 45) degrees for full 10 seconds 7. Limb Ataxia: 0=Absent 8. Sensory: 0=Normal; no sensory loss 9. Best Language: 0=No aphasia, normal 10. Dysarthria: 0=Normal 11. 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 Complete learning assessment and assess knowledge base 2. Provide teaching at level of understanding 3. Provide teaching via preferred learning method(s) Outcome: Progressing Note: Evaluation of progress towards goal: Family and patient updated on plan of care for antibiotics and nephrostomy tube placement to be scheduled for Friday. Will continue to reinforce that BiPap usage will assist in breathing. Diet placed for the weekend. Problem: Cardiovascular - Adult Goal: Maintains optimal cardiac output and hemodynamic stability Description: Patient's goal is: INTERVENTIONS: 1. Monitor vital signs, rhythm, and trends 2. Monitor for bleeding, hypotension and signs of decreased cardiac output 3. Administer ordered vasoactive medications to optimize hemodynamic stability 4. Monitor arterial and/or venous puncture sites for bleeding and/or hematoma 5. Assess quality of pulses, skin color and temperature Outcome: Progressing Note: Evaluation of progress towards goal: Patient maintaining stable blood pressure while continuing diuresis plan. * Plan of Care - Michael Whitehead RN - 05/14/2025 2:22 AM EDT Problem: Pain Goal: Patient goal is pain score less than 4, able to rest, and participant in treatment plan as appropriate Description: INTERVENTIONS: 1. Encourage patient or legal truck sales representative to report early pain and ask for pain medicine when needed 2. Assess pain using appropriate pain scale and include the scale used when documenting 3. Administer analgesics based on type and severity of pain and evaluate response within appropriate time frame 4. Implement non-pharmacological measures as appropriate and evaluate response 5. Consider cultural and social influences on pain and pain management 6. Notify LIP if interventions ineffective or patient reports new pain 7. Monitor vital signs including pulse ox, end-tidal CO2 based on pain intervention 8. Reassess pain per policy 9. Teach patient or legal truck sales representative interventions for comforting Outcome: Progressing Note: Evaluation of progress towards goal: Pt pain will be controlled with PRN pain medications during this shift Problem: Safety Goal: Patient will be injury free during hospitalization Description: INTERVENTIONS: 1. Assess patient's risk for falls and implement fall prevention plan of care per policy 2. Provide and maintain a safe environment 3. Proper use of double Identifiers 4. Medication administration using the 5 rights 5. Hand hygiene 6. Specimens are labeled at the bedside 7. Instruct patient/ patient truck sales representative about use of safety devices 8. Include patient/ patient truck sales representative in decisions related to safety Outcome: Progressing Note: Evaluation of progress towards goal: Pt will remain free from harm during this shift * Plan of Care - Anne Marie Rios [facility] - 05/13/2025 7:34 PM EDT Problem: Inadequate Breathing Pattern Goal: Patient will achieve/maintain normal respiratory rate/effort Description: Patient's goal is: to return to baseline respiratory status prior to discharge INTERVENTIONS 1. Assess and monitor respiratory rate, effort, breathing pattern, and oxygenation 2. Monitor patient for restlessness, anxiety, air hunger 3. Assess physical activity tolerance 4. Assess tobacco history; ask, advise, and refer as appropriate 5. Collaborate with interdisciplinary team and initiate plans/interventions as needed Outcome: Progressing Note: Respiratory Therapy Clinical Practice Guidelines Consult Vital Signs O2 Device: Nasal cannula O2 Flow Rate (L/min): 2 L/min Patient Active Problem List Diagnosis Respiratory failure ([facility] [place]) Acute exacerbation of CHF (congestive heart failure) ([facility] [place]) Last Chest XRAY: Reviewed Pulmonary History: Reviewed RT Reassessment Due In: 12 hours Bronchodilator Respiratory Rate Level 1: Less than 20 Dyspnea Level 2: Periodic SOB Breath Sounds Level 2: Diminished and/or faint wheezes Respiratory History Level 2: Positive risk factors including but not limited to: History of smoking; History of pulmonary complications ; Smoke inhalation, physical/chemical trauma to the lung or upper airway Oxygen to Keep SpO2 Greater Than Or Equal To 92% Level 1: Room air or baseline O2 ; NIV less than or equal to 40% Peak Flow ([facility] Only) Home Therapy: Not Applicable Patients Current Level & Intervention: 1 Every 4 hours PRN for wheezing via nebulizer Broncho-Pulmonary Hygiene Level of Movement Level 2: Actively changing positions - requires assistance Breath Sounds Level 1: Slightly diminished or clear Cough Level 1: Strong, effective Chest X-Ray Level 1: Possible signs of consolidation and/or atelectasis or clear ; No CXR available Sputum Production Level 1: None or small amount of thin or watery secretions with effective cough History & Physical Level 1: None or New onset of bronchitis or existing chronic pulmonary condition. 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 Complete learning assessment and assess knowledge base 2. Provide teaching at level of understanding 3. Provide teaching via preferred learning method(s) Outcome: Progressing Note: Evaluation of progress towards goal: Patient updated on the plan of care for the day. Awaiting possible IR procedure. Diuresis and BiPap. Problem: Discharge Planning Goal: Discharge to post-acute care, other facility, or home with appropriate resources Description: Patient's goal is: [place] INTERVENTIONS 1. Conduct assessment to determine patient/family and health care team treatment goals, and need for post-acute services based on payer coverage, community resources, and patient preferences, and barriers to discharge 2. Coordinate with Social work, Care Navigation, and Utilization Review to arrange appropriate level of services according to patient's needs based on patient preference and payer coverage in collaboration with the physician and health care team 3. Address psychosocial, clinical, and financial barriers to discharge as identified in assessment in conjunction with the patient/family and health care team 4. Consult appropriate ancillary services (i.e.. PT/OT/ST, etc) as needed 5. Communicate with and update the patient/family, physician, and health care team regarding progress on the discharge plan 6. Identify discharge learning needs (meds, wound care, etc). 7. Arrange for needed discharge transportation as appropriate Outcome: Progressing Note: Evaluation of progress towards goal: Patient progressing towards discharge appropriately. Problem: Inadequate Breathing Pattern Goal: Patient will achieve/maintain normal respiratory rate/effort Description: Patient's goal is: to return to baseline respiratory status prior to discharge INTERVENTIONS 1. Assess and monitor respiratory rate, effort, breathing pattern, and oxygenation 2. Monitor patient for restlessness, anxiety, air hunger 3. Assess physical activity tolerance 4. Assess tobacco history; ask, advise, and refer as appropriate 5. Collaborate with interdisciplinary team and initiate plans/interventions as needed Note: Evaluation of progress towards goal: Patient able to tolerate several hours off of BiPap thismorning and on nasal canula. Problem: Moderate - High Risk Fall Score Description: Young Fall Score of =/> 25 or indicated by [facility] Assessment Goal: Patient should be free from fall Description: Interventions: 1. [place] to environment 2. Hourly rounds addressing the 4 P's (Pain, Positioning, Possessions, Potty) 3. Clear area of hazards (spills, clutter, electrical cords, unnecessary equipment) 4. Place equipment (bed & TV controls, call light, phone, urinal) within reach 5. Encourage patient to wear glasses and hearing aides as appropriate 6. Maintain bed in lowest position 7. Lock wheels on bed/wheelchair 8. Provide adequate lighting, including night light 9. Assess need for additional bedding, food/fluids, pain med's prior to sleep/routinely 10. Provide gripper slippers or personal non-skid footwear 11. Teach patient and patient truck sales representative to maintain environment for safety and engage in all aspects of fall prevention program 12. Remind patient to call for help before getting out of bed 13. Initiate bed/chair/exit alarms supportive devices as appropriate, (chair wedge, no-skid floor mat, raised edge mattress, hip protectors) 14. Locate patient bed assignment for optimal visualization 15. Evaluate and identify Safe Patient Handling Equipment needs 16. Provide supervision when out of bed or chair 17. Utilize gait belt as needed to assist with ambulation 18. Place adaptive equipment (cane, walker) within reach 19. Request patient truck sales representative bring adaptive equipment/mobility aids from home or obtain and provide as needed 20. Consult pharmacy regarding effects of med's affecting mobility, cognition, and alternatives 21. Obtain physician order for PT if risk factors associated with mobility are present 22. Obtain physician order for OT as appropriate 23. Utilize diversional activities 24. Educate patient and patient truck sales representative how to maintain a safe environment during visitationtimes (notify nurse prior to leaving bedside) 25. Consider appropriateness of medical or non-director medical science 26. Set up voiding schedule as appropriate (every 2 hours) Outcome: Progressing Note: Evaluation of progress towards goal: Patient able to get up to the chair with Boni Steady today without fall. * PT/OT/ASSISTANT TODDLER TEACHER - MULU Rick - 05/13/2025 1:44 PM EDT Occupational Therapy Treatment Discharge Recommendations for Safe Patient Transition OT Discharge Disposition Recommendation: Post acute - moderate OT Post Acute Moderate Rehab Needs: Recommend moderate intensity rehab, Tolerate 1-2 hrs of therapy3-5 days/wk, Subacute or chronic functional impairment Current Impairments Informing Therapy Recommendation: Ambulation status/safety, Fall risk, ADL status, Endurance level 6 Clicks: Daily Activity Putting on and taking off regular lower body clothing?: Total Bathing (including washing, rinsing, drying)?: A lot Toileting, which includes using toilet, bedpan or urinal?: Total Putting on and taking off regular upper body clothing?: A lot Taking care of personal grooming such as brushing teeth?: A little Eating meals?: A little Scoring Daily Activity Raw Score: 12 CMS G Code Modifier: CL OT Treatment/Interventions: ADL retraining, Functional transfer training, UE strengthening/ROM, Endurance training, Patient/family training, Balance, Bed mobility, Compensatory technique education, Functional activities OT Frequency: 5-6days/week OT Duration: LOS Assessment Patient Assessment Therapy Problem List: Decreased ADL status, Decreased balance, Decreased endurance, Decreased fine motor, Decreased gross motor, Decreased high-level ADLs, Decreased mobility, Decreased safe judgement during ADL, Decreased self- care trans, Decreased UE strength Patient Response to Treatment: Slow progress, decreased activity tolerance Mood/Affect: Appropriate for circumstances Rehab Prognosis: Good, With continued OT status post acute discharge Visit RN Communication: Yes Medical Record Reviewed: Yes OT Type of Visit: Treatment Precautions Activity: Okay to see per RN Equipment: gait belt, RW, boni stedy Telemetry/Dev Technical Mgr: Yes Oxygen Used: 4L Other: high fall risk Pain Assessment Pain Assessment: No/denies pain ADL / IADL Other: Pt declined ADLs this date. Home Management - IADL Other: Pt declined ADLs this date. Hearing / Speech / Vision Hearing: Within Functional Limits Speech: Within Functional Limits Cognition Arousal/Alertness: Appropriate responses to stimuli Attention Span: Attends with cues to redirect Bed Mobility Supine to Sit: Mod assist (x2) Other: HOB elevated, cues for sequencing and tech. Pt required A for trunk/hip progression. Inc time to complete. Pt seated in chair at exit with call light within reach, chair alarm on, spouse present, RN aware. Transfers Sit to Stand: Min assist (x2) Stand to Sit: Min assist (x2) Bed to Chair: Total assist (boni stedy) Other: Pt completed STS x2 from EOB with RW and within boni stedy both requiring min A x2 to initiate and achieve full stand. Pt with increased B knee shakieness/buckling standing at walker with cuesfor TKE and poor carryover. Gait Other: Pt unable to take steps safely this date. Balance Sitting Balance: Static: Fair Sitting Balance: Dynamic: Fair (-) Standing Balance: Static: Fair (-) Standing Balance: Dynamic: Poor Other: Pt sat unsupported at EOB 6-7 mins with BUE support and CGA-Min A to maintain seated balance. Pt stood x2 attempts; 1-2 mins at RW and 2-3 mins within boni stedy. B knee shakiness/buckling noted. Cues to maintain TKE provided with poor carryover. Activity Tolerance Endurance: Tolerates 30 minutes activity with rest breaks Other: Rest breaks taken as needed. Pt with fair tolerance to activity. Limited by weakness/fatigueand anxiety. 05/13/25 1129 UE ROM Scapular retraction x Shoulder horizontal abduction/adduction x Elbow flexion/extension x Other BUE AROM Repetitions x15 Plan Occupational Therapy Care Plan Occupational Therapy Care Plan (Active) Template: OT - Occupational Therapy Problem: Activity Tolerance Dates: Start: 05/10/25 Disciplines: OT Goal: No limitations to activity tolerance Dates: Start: 05/10/25 Expected End: 06/03/25 Description: Goal Description: Disciplines: OT Outcomes Date/Time User Outcome 05/13/25 1332 SAMPSON Rick/Nestor Progressing Problem: Bed Mobility Dates: Start: 05/10/25 Disciplines: OT Goal: Patient will perform bed mobility with Modified [place] Dates: Start: 05/10/25 Expected End: 06/03/25 Description: Goal Description: Disciplines: OT Outcomes Date/Time User Outcome 05/13/25 1332 AGGIE RickA/Nestor Progressing Problem: Functional Mobility Dates: Start: 05/10/25 Disciplines: OT Goal: Patient will perform functional mobility with Modified [place] Dates: Start: 05/10/25 Expected End: 06/03/25 Description: Goal Description: Disciplines: OT Problem: Other (Customize) Dates: Start: 05/10/25 Disciplines: OT Goal: Improve Dates: Start: 05/10/25 Expected End: 06/03/25 Description: Pt will complete all areas of ADL Tasks at Mod I with use of DME as needed and good safety awareness Disciplines: OT Problem: Sitting Balance Dates: Start: 05/10/25 Disciplines: OT Goal: Improve balance to normal Dates: Start: 05/10/25 Expected End: 06/03/25 Description: Static Dynamic Disciplines: OT Outcomes Date/Time User Outcome 05/13/25 MULU Denise Progressing Problem: Standing Balance Dates: Start: 05/10/25 Disciplines: OT Goal: Improve balance to good Dates: Start: 05/10/25 Expected End: 06/03/25 Description: Static Dynamic Disciplines: OT Outcomes Date/Time User Outcome 05/13/25 MULU Denise Progressing Problem: Strength Dates: Start: 05/10/25 Disciplines: OT Goal: Improve strength Dates: Start: 05/10/25 Expected End: 06/03/25 Description: Pt will tolerate BUE HEP to progress stamina to care for self Disciplines: OT Outcomes Date/Time User Outcome 05/13/25 MULU Denise Progressing Problem: Transfers Dates: Start: 05/10/25 Disciplines: OT Goal: Patient will perform transfers with Modified [place] Dates: Start: 05/10/25 Expected End: 06/03/25 Description: Goal Description: Disciplines: OT Outcomes Date/Time User Outcome 05/13/25 MULU Denise Progressing Occupational Therapy Care Plan (Resolved) There are no resolved problems. Principal Problem: Respiratory failure ([facility]) Active Problems: Acute exacerbation of CHF (congestive heart failure) ([facility] [facility] Cosigned by CONSTANCE Tariq/Nestor at 05/13/2025 2:21 PM EDT Associated attestation - Sanjana Martinez OTR/Nestor - 05/13/2025 2:21 PM EDT I have reviewed and agree with this note and education documentation for this visit. * PT/OT/ASSISTANT TODDLER TEACHER - Ross Antonio PTA - 05/13/2025 1:42 PM EDT Physical Therapy Treatment Discharge Recommendations for Safe Patient Transition PT Discharge Disposition Recommendation: Post acute - moderate PT Post Acute Moderate Rehab Needs: Recommend moderate intensity rehab, Tolerate 1-2 hrs of therapy3-5 days/wk, Subacute or chronic functional impairment Current Impairments Informing Therapy Recommendation: Ambulation status/safety, Fall risk, ADL status, Endurance level 6 Clicks: Basic Mobility Turning from your back to your side while in a flat bed without using bed rails?: A lot Moving from lying on your back to sitting on side of flat bed without using bed rails?: A lot Moving to and from bed to a chair (including w/c)?: Total Standing up from a chair using your arms (e.g. w/c or bedside chair)?: A little To walk in hospital room?: Total Climbing 3-5 steps with a railing?: Total Scoring 6 Clicks: Basic Mobility Raw Score: 10 CMS G Code Modifier: CL Therapy Plan PT Treatment/Interventions: Functional transfer training, LE strengthening/ROM, Endurance training,Balance, Stair training, Bed mobility, Gait training, Functional activities, Neuromuscular reeducation PT Frequency: 5-6days/week PT Duration: Until goals met Assessment Patient Assessment Therapy Problem List: Decreased ADL status, Decreased balance, Decreased endurance, Decreased fine motor, Decreased gross motor, Decreased high-level ADLs, Decreased mobility, Decreased safe judgement during ADL, Decreased self- care trans, Decreased UE strength Patient Response to Treatment: Slow progress, decreased activity tolerance Mood/Affect: Appropriate for circumstances Rehab Prognosis: Good, With continued PT status post acute discharge Visit RN Communication: Yes Medical Record Reviewed: Yes PT Type of Visit: Treatment Precautions Activity: Okay to see per RN Equipment: gait belt, RW, boni mello Telemetry/Dev Technical Mgr: Yes Oxygen Used: 4L via NC Other: high fall risk Subjective Physical Therapy Comments: Per RN stroke alert called this AM, okay for activity. CT brain (-) Pain Assessment Pain Assessment: No/denies pain Bed Mobility Supine to Sit: Mod assist, Left (x2) Sit to Supine: Unable to assess Other: w/ HOB elevated pt sat EOB>L requiring Mod A x2 to reach for bedrail, to bring hips to EOB, and to bring trunk off bed and to midline. Pt requiring cues for bedrail usage, technique, and distraction as she demos increased anxiety throughout, stating I'm gonna fall! depsite sidelying in middle of bed. Pt seated in recliner at end of tx w/ chair alarm on, call light in reach, and all needs met Transfers Sit to Stand: Min assist (x2) Stand to Sit: Min assist (x2) Bed to Chair: Total assist (via boni stedy) Other: Pt completed STS 2x from EOB, 1st attempt at RW, 2nd at boni stedy. Pt requiring Min A x2 tocomplete stand on both attempts w/ cues required for hand placement and technique as pt tends to pull from RW. Pt demos increased bilateral knee instability while standing at walker, unsafe to attempt steps, transferred to chair via boni stedy Gait Other: unsafe to attempt Balance Balance Evaluation: Exceptions to Functional Limits Sitting Balance: Static: Fair Sitting Balance: Dynamic: Fair (-) Standing Balance: Static: Fair (-) Standing Balance: Dynamic: Poor Other: Pt requiring Min A to correct posterior lean while seated EOB (suspect anxiety). Pt demos mild bilateral knee buckling/tremors while standing at RW however no major LOB. Pt performed static stand at RW 1-2 min, unable to weight shift or attempt steps, pt stood in boni stedy 2-3 min, able to weight shift when provided Min A but unable to clear feet to attempt marches. Pt sat EOB 6-7 min w/ Min A Activity Tolerance Endurance: Tolerates >30 minutes activity with rest breaks Other: Fair tolerance, limited by weakness, fatigue, and anxiety. Rest breaks taken as needed 05/13/25 1128 LE Seated LE seated exercises performed? Yes Ankle pumps AROM Long arc quads AROM Seated marching AAROM Other Performed while seated in chair. Cues given for technique and pacing, assist required during marches d/t weakness Repetitions 10 w/ breaks as needed Plan Physical Therapy Care Plan Physical Therapy Care Plan (Active) Template: PT - Physical Therapy Problem: Activity Tolerance Dates: Start: 05/10/25 Disciplines: PT Goal: Tolerate > 30 minutes of activity WITH rest breaks Dates: Start: 05/10/25 Expected End: 06/10/25 Disciplines: PT Outcomes Date/Time User Outcome 05/13/25 133 Ross Antonio PTA Progressing Goal Note filed on 05/13/25 1330 by Ross Antonio PTA Evaluation of progress towards goal: Problem: Bed Mobility Dates: Start: 05/10/25 Disciplines: PT Goal: Patient will perform bed mobility with Contact Guard Dates: Start: 05/10/25 Expected End: 06/10/25 Description: Supine<>sit CGA Disciplines: PT Outcomes Date/Time User Outcome 05/13/25 1330 Ross Antonio PTA Progressing Goal Note filed on 05/13/25 1330 by Ross Antonio PTA Evaluation of progress towards goal: Problem: Gait Dates: Start: 05/10/25 Disciplines: PT Goal: Patient will perform gait with Minimum Assist Dates: Start: 05/10/25 Expected End: 06/10/25 Description: Pt to amb 30' with RW and Min assist Disciplines: PT Outcomes Date/Time User Outcome 05/13/25 1330 Ross Antonio PTA Not Progressing Goal Note filed on 05/13/25 1330 by Ross Antonio PTA Evaluation of progress towards goal: Problem: Standing Balance Dates: Start: 05/10/25 Disciplines: PT Goal: Improve balance to good Dates: Start: 05/10/25 Expected End: 06/10/25 Description: Pt will demonstrate good balance during amb with use of RW for support Disciplines: PT Outcomes Date/Time User Outcome 05/13/250 Ross Antonio PTA Progressing Goal Note filed on 05/13/25 1330 by Ross Antonio PTA Evaluation of progress towards goal: Problem: Strength Dates: Start: 05/10/25 Disciplines: PT Goal: Improve strength Dates: Start: 05/10/25 Expected End: 06/10/25 Description: Pt to improve LLE strength to 4/5 Disciplines: PT Outcomes Date/Time User Outcome 05/13/25 1330 Ross Antonio PTA Progressing Goal Note filed on 05/13/25 1330 by Ross Antonio PTA Evaluation of progress towards goal: Problem: Transfers Dates: Start: 05/10/25 Disciplines: PT Goal: Patient will perform transfers with Minimum Assist Dates: Start: 05/10/25 Expected End: 06/10/25 Description: Sit<>stand with Min assist and use of RW for support Disciplines: PT Outcomes Date/Time User Outcome 05/13/251329 Ross Antonio PTA Progressing Goal Note filed on 05/13/25 133 by Ross Antonio PTA Evaluation of progress towards goal: Physical Therapy Care Plan (Resolved) There are no resolved problems. Principal Problem: Respiratory failure ([facility]) Active Problems: Acute exacerbation of CHF (congestive heart failure) ([facility]) Cosigned by Erin Hsu PT at 05/13/2025 2:11 PM EDT Associated attestation - Erin Hsu, PT - 05/13/2025 2:11 PM EDT I have reviewed and agree with this note and education documentation for this visit. * Situational Awareness - SHAWANDA Martinez - 05/13/2025 1:16 PM EDT Order for home BiPAP was faxed to [facility]. [facility] - GEN 6 Progressive [address] [facility] [id number] Date: May 11, 2025 Patient: Lexi Cm [address] [place] [id number] : 1945 Sex: F Bi-Level, Bi-Level ST; 16; 6; 10 (Order ID: [id number]) Diagnosis: Chronic hypercapnia (R06.89) Obesity hypoventilation syndrome (CMS-HCC) (E66.2) Quantity: 1 The [id number] evaluation was completed by: SHAWANDA Gonzalez PAP Order: Bi-Level PAP Order: Bi-Level ST IPAP: ___cm/H2O: 16 EPAP: ___cm/H2O: 6 Back-up rate: 10 The face to face evaluation was performed on: 05/11/2025 Electronically Signed By: SHAWANDA Gonzalez Date: May 11, 2025 Bree De La Rosa CNP SHAWANDA Martinez 05/13/25 1316 * Discharge Planning Note - Anabel Tan - 05/13/2025 11:30 AM EDT DISCHARGE PLANNING NOTE Referral sent to [facility] [email or web address] [facility] [employer] [facility], [place] Julian ([facility]- P# ; F# ) * Discharge Planning Note - ESTHER Prasad - 05/13/2025 9:43 AM EDT Ongoing Assessment for Discharge Needs Reviewed discharge milestones and patient needs related to discharge plan. Current estimated discharge date of May 17, 2025 has been reviewed by treatment team. Reviewed in Daily Transition rounds. Patient going to get the nephrostomy tube placed on Friday. Per md cannot discharge prior to this. NIV vs oxygen. Stroke alert called this morning. [facility] can accept. Sent script to them yesterday for the bipap. [facility] does not have any beds as this time. Information Technology Officer to follow and assist with appropriate transition plans. - ESTHER Prasad 05/13/25 9:53 AM Ongoing Assessment for Discharge Needs Flowsheet Row Most Recent Value Referral To Community Referrals / Resources Provided Denies needs Services Requested Patient expects to be discharged to: SNF Does the patient wish to have family/friend/caregiver involved in their discharge planning? No, thepatient does not wish to have family/friend/caregiver involved in their discharge planning Discharge Disposition SNF Facility/Service Name N/A SNF Name [facility] SN[facility] Accepted? Yes Does the patient need discharge transportation arranged? No Mobility issues discussed with transportation provider No Patient choice offered Yes List Provided Yes [facility]Port List Provided Shelter Facility * Plan of Care - Betsey Ragland RCP - 05/13/2025 9:05 AM EDT Respiratory Therapy Clinical Practice Guidelines Consult Clinical Practice Guidelines Ordered Consult Assessment: Consult, Broncho-pulmonary hygiene, Bronchodilator, NIV CPAP Broncho-pulmonary Hygiene Indications: To prevent/reverse atelectasis Broncho-pulmonary Hygiene Total: 1 Bronchodilator Indications: Bronchospasm/wheezing Bronchodilator Total: 1 Vital Signs BP: 150/68 Pulse: 76 Resp: 18 SpO2: 100 % O2 Device: Nasal cannula O2 Flow Rate (L/min): 4 L/min Respiratory Assessment Assessment Type: Post-treatment Level of Consciousness: Alert Respiratory Pattern: Regular, Dyspnea with exertion Bilateral Breath Sounds: Increased aeration Cough Cough: Occasional, Productive Sputum Amount: Small Sputum Color: Clear Sputum Consistency: Thick, Thin Cough Description Sputum Amount: Small Sputum Color: Clear Sputum Consistency: Thick, Thin Patient Active Problem List Diagnosis Respiratory failure ([facility]) Acute exacerbation of CHF (congestive heart failure) ([facility]) Last Chest XRAY: Reviewed Pulmonary History: nonsmoker RT Reassessment Due In: 12 hours Bronchodilator Respiratory Rate Level 1: Less than 20 Dyspnea Level 2: Periodic SOB Breath Sounds Level 1: Clear Respiratory History Level 1: None Oxygen to Keep SpO2 Greater Than Or Equal To 92% Level 3: 4-6 LPM or >35% - <50% ; NIV 51 - 65% Peak Flow ([facility] Only) Patients Current Level & Intervention: 1 Every 4 hours PRN for wheezing via nebulizer, pt's resp distress has been due to CHF exacerbation Broncho-Pulmonary Hygiene Level of Movement Level 2: Actively changing positions - requires assistance Breath Sounds Level 1: Slightly diminished or clear Cough Level 1: Strong, effective Chest X-Ray Level 1: Possible signs of consolidation and/or atelectasis or clear ; No CXR available Sputum Production Level 1: None or small amount of thin or watery secretions with effective cough History & Physical Level 1: None or New onset of bronchitis or existing chronic pulmonary condition. (not in an exacerbation) SpO2 to O2 Need Level 3: >92% on NC @ 4-6lpm Patients Current Level & Intervention: 1 Teach/instruct patient to cough and deep breathe Q1-2 hours * Plan of Care - Alyssa Perez RN - 05/12/2025 9:41 PM EDT Problem: Pain Goal: Patient goal is pain score less than 4, able to rest, and participant in treatment plan as appropriate Description: INTERVENTIONS: 1. Encourage patient or legal truck sales representative to report early pain and ask for pain medicine when needed 2. Assess pain using appropriate pain scale and include the scale used when documenting 3. Administer analgesics based on type and severity of pain and evaluate response within appropriate time frame 4. Implement non-pharmacological measures as appropriate and evaluate response 5. Consider cultural and social influences on pain and pain management 6. Notify LIP if interventions ineffective or patient reports new pain 7. Monitor vital signs including pulse ox, end-tidal CO2 based on pain intervention 8. Reassess pain per policy 9. Teach patient or legal truck sales representative interventions for comforting Outcome: Progressing Note: Evaluation of progress towards goal: Patient is getting assessed on the 0- 10 scale. Patient has PRN pain medication available. Will continue to monitor Problem: Safety Goal: Patient will be injury free during hospitalization Description: INTERVENTIONS: 1. Assess patient's risk for falls and implement fall prevention plan of care per policy 2. Provide and maintain a safe environment 3. Proper use of double Identifiers 4. Medication administration using the 5 rights 5. Hand hygiene 6. Specimens are labeled at the bedside 7. Instruct patient/ patient truck sales representative about use of safety devices 8. Include patient/ patient truck sales representative in decisions related to safety Outcome: Progressing Note: Evaluation of progress towards goal: Patient has remained injury free at this time. Bed is its lowest position with the wheels locked. Call light is in reach Problem: Infection Goal: Absence of infection during hospitalization Description: INTERVENTIONS 1. Assess and monitor for signs and symptoms of infection. 2. Monitor lab/diagnostic results. 3. Monitor all insertion sites i.e., indwelling lines, tubes and drains. 4. Monitor endotracheal (as able) and nasal secretions for changes in amount and color. 5. Administer medications as ordered. 6. Instruct and encourage patient and family to use good hand hygiene technique. 7. Identify and instruct patient/patient truck sales representative in use of appropriate isolation precautionsfor identified infection/symptoms. 8. Provide and discuss with patient/patient truck sales representative on educational MDRO sheet. 9. Encourage and monitor nutritional status daily and consult card tender if indicated. 10. Implement neutropenic guidelines as needed. Outcome: Progressing Note: Evaluation of progress towards goal: Patient evaluated for s/s of infection. Patient's vital signs, labs, and diagnostic results are being monitored each shift. Patient remains free from infection at this time Problem: Moderate - High Risk Fall Score Description: Young Fall Score of =/> 25 or indicated by [facility] Rehab Assessment Goal: Patient should be free from fall Description: Interventions: 1. [place] to environment 2. Hourly rounds addressing the 4 P's (Pain, Positioning, Possessions, Potty) 3. Clear area of hazards (spills, clutter, electrical cords, unnecessary equipment) 4. Place equipment (bed & TV controls, call light, phone, urinal) within reach 5. Encourage patient to wear glasses and hearing aides as appropriate 6. Maintain bed in lowest position 7. Lock wheels on bed/wheelchair 8. Provide adequate lighting, including night light 9. Assess need for additional bedding, food/fluids, pain med's prior to sleep/routinely 10. Provide gripper slippers or personal non-skid footwear 11. Teach patient and patient truck sales representative to maintain environment for safety and engage in all aspects of fall prevention program 12. Remind patient to call for help before getting out of bed 13. Initiate bed/chair/exit alarms supportive devices as appropriate, (chair wedge, no-skid floor mat, raised edge mattress, hip protectors) 14. Locate patient bed assignment for optimal visualization 15. Evaluate and identify Safe Patient Handling Equipment needs 16. Provide supervision when out of bed or chair 17. Utilize gait belt as needed to assist with ambulation 18. Place adaptive equipment (cane, walker) within reach 19. Request patient truck sales representative bring adaptive equipment/mobility aids from home or obtain and provide as needed 20. Consult pharmacy regarding effects of med's affecting mobility, cognition, and alternatives 21. Obtain physician order for PT if risk factors associated with mobility are present 22. Obtain physician order for OT as appropriate 23. Utilize diversional activities 24. Educate patient and patient truck sales representative how to maintain a safe environment during visitationtimes (notify nurse prior to leaving bedside) 25. Consider appropriateness of medical or non-director medical science 26. Set up voiding schedule as appropriate (every 2 hours) Outcome: Progressing Note: Evaluation of progress towards goal: Pt remains free from falls during hospitalization. Will continue to monitor * Plan of Care - Anne Marie Rios, [facility] - 05/12/2025 8:07 PM EDT Problem: Inadequate Breathing Pattern Goal: Patient will achieve/maintain normal respiratory rate/effort Description: Patient's goal is: to return to baseline respiratory status prior to discharge INTERVENTIONS 1. Assess and monitor respiratory rate, effort, breathing pattern, and oxygenation 2. Monitor patient for restlessness, anxiety, air hunger 3. Assess physical activity tolerance 4. Assess tobacco history; ask, advise, and refer as appropriate 5. Collaborate with interdisciplinary team and initiate plans/interventions as needed Outcome: Progressing Note: Respiratory Therapy Clinical Practice Guidelines Consult Vital Signs BP: 117/70 Pulse: 87 Heart Rate Source: Monitor Resp: 16 SpO2: 94 % O2 Device: Non-invasive mask (BiPap/CPAP) FiO2 (%): 30 % Patient Position: Semi-fowlers Respiratory Assessment Assessment Type: Pre-treatment, Post-treatment, Initial assessment Level of Consciousness: Alert Respiratory Pattern: Regular Chest Assessment: Chest expansion symmetrical Bilateral Breath Sounds: Diminished Readings Vt Spontaneous (mL): 405 mL Minute Ventilation (L/min): 8.1 L/min PIP Observed (cm H2O): 16 cm H2O Total Rate : 18 Leakage: 2 Patient Active Problem List Diagnosis Respiratory failure ([facility]) Acute exacerbation of CHF (congestive heart failure) ([facility]) Last Chest XRAY: Reviewed Pulmonary History: Reviewed RT Reassessment Due In: 12 hours Bronchodilator Respiratory Rate Level 1: Less than 20 Dyspnea Level 2: Periodic SOB Breath Sounds Level 2: Diminished and/or faint wheezes Respiratory History Level 2: Positive risk factors including but not limited to: History of smoking; History of pulmonary complications ; Smoke inhalation, physical/chemical trauma to the lung or upper airway Oxygen to Keep SpO2 Greater Than Or Equal To 92% Level 1: Room air or baseline O2 ; NIV less than or equal to 40% Peak Flow ([facility] Only) Home Therapy: Not Applicable Patients Current Level & Intervention: 2 Three times daily and Q4 PRN for wheezing Broncho-Pulmonary Hygiene Level of Movement Level 2: Actively changing positions - requires assistance Breath Sounds Level 1: Slightly diminished or clear Cough Level 2: Strong, effective and/or frequent Chest X-Ray Level 1: Possible signs of consolidation and/or atelectasis or clear ; No CXR available Sputum Production Level 1: None or small amount of thin or watery secretions with effective cough History & Physical Level 1: None or New onset of bronchitis or existing chronic pulmonary condition. (not in an exacerbation) SpO2 to O2 Need Level 1: >92% on room air or NC < 3 lpm Patients Current Level & Intervention: 1 Teach/instruct patient to cough and deep breathe Q1-2 hours * Discharge Planning Note - ESTHER Prasad - 05/12/2025 11:33 AM EDT Ongoing Assessment for Discharge Needs Reviewed discharge milestones and patient needs related to discharge plan. Current estimated discharge date of May 14, 2025 has been reviewed by treatment team. storage brine worker spoke with the liaison with [facility] and they do not have any beds. She also is a family friend and she wpoke with them yesterday and they wanted [facility] as the alternate.storage brine worker spoke with Niyah daughter in regards to the above. Daughter stated that [facility] is their alternate choice. storage brine worker sent the referral to the bonnie Qureshi. storage brine worker to follow and assist with appropriate transition plans. - ESTHER Prasad 05/12/25 11:35 AM ' Ongoing Assessment for Discharge Needs Flowsheet Row Most Recent Value Referral To Community Referrals / Resources Provided Denies needs Services Requested Patient expects to be discharged to: SNF Does the patient wish to have family/friend/caregiver involved in their discharge planning? No, thepatient does not wish to have family/friend/caregiver involved in their discharge planning Discharge Disposition SNF Facility/Service Name [facility] Name [facility] SNF Accepted? Yes Does the patient need discharge transportation arranged? No Mobility issues discussed with transportation provider No Patient choice offered Yes List Provided Yes [facility] List Provided Shelter Facility * Plan of Care - Janel Braun RN - 05/12/2025 11:07 AM EDT Problem: Pain Goal: Patient goal is pain score less than 4, able to rest, and participant in treatment plan as appropriate Description: INTERVENTIONS: 1. Encourage patient or legal truck sales representative to report early pain and ask for pain medicine when needed 2. Assess pain using appropriate pain scale and include the scale used when documenting 3. Administer analgesics based on type and severity of pain and evaluate response within appropriate time frame 4. Implement non-pharmacological measures as appropriate and evaluate response 5. Consider cultural and social influences on pain and pain management 6. Notify LIP if interventions ineffective or patient reports new pain 7. Monitor vital signs including pulse ox, end-tidal CO2 based on pain intervention 8. Reassess pain per policy 9. Teach patient or legal truck sales representative interventions for comforting Outcome: Progressing Note: Evaluation of progress towards goal: pt resting comfortably in bed at this time. Will continue to monitor/assess for duration of shift. Problem: Safety Goal: Patient will be injury free during hospitalization Description: INTERVENTIONS: 1. Assess patient's risk for falls and implement fall prevention plan of care per policy 2. Provide and maintain a safe environment 3. Proper use of double Identifiers 4. Medication administration using the 5 rights 5. Hand hygiene 6. Specimens are labeled at the bedside 7. Instruct patient/ patient truck sales representative about use of safety devices 8. Include patient/ patient truck sales representative in decisions related to safety Outcome: Progressing Note: Evaluation of progress towards goal: pt's safety maintained at this time. No falls/injuries noted. Will continue to monitor/assess for duration of shift. Problem: Infection Goal: Absence of infection during hospitalization Description: INTERVENTIONS 1. Assess and monitor for signs and symptoms of infection. 2. Monitor lab/diagnostic results. 3. Monitor all insertion sites i.e., indwelling lines, tubes and drains. 4. Monitor endotracheal (as able) and nasal secretions for changes in amount and color. 5. Administer medications as ordered. 6. Instruct and encourage patient and family to use good hand hygiene technique. 7. Identify and instruct patient/patient truck sales representative in use of appropriate isolation precautionsfor identified infection/symptoms. 8. Provide and discuss with patient/patient truck sales representative on educational MDRO sheet. 9. Encourage and monitor nutritional status daily and consult card tender if indicated. 10. Implement neutropenic guidelines as needed. Outcome: Progressing Note: Evaluation of progress towards goal: labs monitored. Pt afebrile, VSS. No changes noted. Willcontinue to monitor/assess for duration of shift. Problem: Knowledge Deficit Goal: Patient/patient truck sales representative demonstrates understanding of disease process, treatment plan,medications, and discharge instructions Description: INTERVENTIONS 1. Complete learning assessment and assess knowledge base 2. Provide teaching at level of understanding 3. Provide teaching via preferred learning method(s) Outcome: Progressing Note: Evaluation of progress towards goal: POC+meds discussed with pt. Questions/concerns addressedat this time. Will continue to monitor/assess for duration of shift. Problem: Discharge Planning Goal: Discharge to post-acute care, other facility, or home with appropriate resources Description: Patient's goal is: [facility] INTERVENTIONS 1. Conduct assessment to determine patient/family and health care team treatment goals, and need for post-acute services based on payer coverage, community resources, and patient preferences, and barriers to discharge 2. Coordinate with Social work, Care Navigation, and Utilization Review to arrange appropriate level of services according to patient's needs based on patient preference and payer coverage in collaboration with the physician and health care team 3. Address psychosocial, clinical, and financial barriers to discharge as identified in assessment in conjunction with the patient/family and health care team 4. Consult appropriate ancillary services (i.e.. PT/OT/ST, etc) as needed 5. Communicate with and update the patient/family, physician, and health care team regarding progress on the discharge plan 6. Identify discharge learning needs (meds, wound care, etc). 7. Arrange for needed discharge transportation as appropriate Outcome: Progressing Note: Evaluation of progress towards goal: d/c plans discussed. No changes noted. Will continue to monitor/assess for duration of shift. Problem: Inadequate Breathing Pattern Goal: Patient will achieve/maintain normal respiratory rate/effort Description: Patient's goal is: to return to baseline respiratory status prior to discharge INTERVENTIONS 1. Assess and monitor respiratory rate, effort, breathing pattern, and oxygenation 2. Monitor patient for restlessness, anxiety, air hunger 3. Assess physical activity tolerance 4. Assess tobacco history; ask, advise, and refer as appropriate 5. Collaborate with interdisciplinary team and initiate plans/interventions as needed Outcome: Progressing Note: Evaluation of progress towards goal: pt's sats+RR=WNL. No s/sx respiratory distress noted at this time on 5L vs bipap. Will continue to monitor/assess for duration of shift. Problem: Moderate - High Risk Fall Score Description: [place] Fall Score of =/> 25 or indicated by [facility] Assessment Goal: Patient should be free from fall Description: Interventions: 1. [place] to environment 2. Hourly rounds addressing the 4 P's (Pain, Positioning, Possessions, Potty) 3. Clear area of hazards (spills, clutter, electrical cords, unnecessary equipment) 4. Place equipment (bed & TV controls, call light, phone, urinal) within reach 5. Encourage patient to wear glasses and hearing aides as appropriate 6. Maintain bed in lowest position 7. Lock wheels on bed/wheelchair 8. Provide adequate lighting, including night light 9. Assess need for additional bedding, food/fluids, pain med's prior to sleep/routinely 10. Provide gripper slippers or personal non-skid footwear 11. Teach patient and patient truck sales representative to maintain environment for safety and engage in all aspects of fall prevention program 12. Remind patient to call for help before getting out of bed 13. Initiate bed/chair/exit alarms supportive devices as appropriate, (chair wedge, no-skid floor mat, raised edge mattress, hip protectors) 14. Locate patient bed assignment for optimal visualization 15. Evaluate and identify Safe Patient Handling Equipment needs 16. Provide supervision when out of bed or chair 17. Utilize gait belt as needed to assist with ambulation 18. Place adaptive equipment (cane, walker) within reach 19. Request patient truck sales representative bring adaptive equipment/mobility aids from home or obtain and provide as needed 20. Consult pharmacy regarding effects of med's affecting mobility, cognition, and alternatives 21. Obtain physician order for PT if risk factors associated with mobility are present 22. Obtain physician order for OT as appropriate 23. Utilize diversional activities 24. Educate patient and patient truck sales representative how to maintain a safe environment during visitationtimes (notify nurse prior to leaving bedside) 25. Consider appropriateness of medical or non-director medical science 26. Set up voiding schedule as appropriate (every 2 hours) Outcome: Progressing Note: Evaluation of progress towards goal: pt's safety maintained at this time. No falls/injuries noted. Will continue to monitor/assess for duration of shift. Problem: Potential for Compromised Skin Integrity Goal: Skin integrity is maintained or improved Description: Patient's goal is: to have no new skin breakdown for duration of stay INTERVENTIONS 1. Perform initial skin assessment on admission and as needed 2. Turn patient every 2 hours and PRN 3. Relieve pressure to bony prominences 4. Avoid shearing 5. Keep skin clean and dry 6. Alternate a full bath with partial baths for elderly 7. Apply lotion/moisturizer on skin 8. Monitor patient's hygiene practices 9. Float heels 10. Collaborate with interdisciplinary team and initiate plans and interventions as needed Outcome: Progressing Note: Evaluation of progress towards goal: no new skin breakdown noted at this time. Will continue to monitor/assess for duration of shift. Goal: Patient's nutritional intake is adequate Description: Patient's goal is: to have adequate PO intake prior to discharge INTERVENTIONS 1. Assess and monitor food intake and supplements, patient food preferences, nausea, vomiting, labs, oral cavity (gums, teeth, tongue, mucosa), proper denture fit, and cultural beliefs 2. Monitor for signs of hypoglycemia and hyperglycemia 3. Collaborate with interdisciplinary team and initiate plan and interventions as ordered 4. Monitor patient's weight 5. Assist patient with meals/food selection 6. Assist patient with eating 7. Allow adequate time for meals 8. Provide pleasant environment during mealtime 9. Increase social contact during mealtimes 10. Plan activities to conserve energy 11. Encourage/perform oral hygiene as appropriate 12. Encourage patient to take dietary supplement as ordered 13. Collaborate with clinical card tender 14. Include patient/ patient's truck sales representative in decisions related to nutrition Outcome: Progressing Note: Evaluation of progress towards goal: pt tolerating ordered diet at this time. Will continue to monitor/assess for duration of shift. Problem: Urinary Incontinence Goal: Perineal skin integrity is maintained or improved Description: INTERVENTIONS 1. Assess genitourinary system, perineal skin, labs (urinalysis), and history of incontinence to include past management, aggravating, and alleviating factors 2. Keep skin clean and dry 3. Apply skin protectant 4. Develop skin care regimen 5. Provide privacy when changing patients incontinence device to maintain their dignity 6. Consider placing an indwelling catheter 7. Collaborate with interdisciplinary team and initiate plans and interventions as needed Outcome: Progressing Note: Evaluation of progress towards goal: no new perineal breakdown noted at this time. Will continue to monitor/assess for duration of shift. * Discharge Planning Note - Eden Grant - 05/12/2025 10:18 AM EDT Ongoing Assessment for Discharge Needs Reviewed discharge milestones and patient needs related to discharge plan. Current estimated discharge date of May 13, 2025 has been reviewed by treatment team. Reviewed in Daily Transition Rounds: Awaiting placement of nephrostomy tube with plans of potentialurethral stent removal. Pulm recommending & arranging for home BiPAP script. Currently on NIV vs 5L 02. DC plan is SNF: [facility] (has been accepted) pending progress and treatment plans. EDY tofollow and assist with appropriate transition plans. - Eden Grant 05/12/25 10:24 AM Ongoing Assessment for Discharge Needs Flowsheet Row Most Recent Value Referral To Community Referrals / Resources Provided Denies needs Services Requested Patient expects to be discharged to: SNF Does the patient wish to have family/friend/caregiver involved in their discharge planning? No, thepatient does not wish to have family/friend/caregiver involved in their discharge planning Discharge Disposition SNF Facility[facility]Service Name [facility] Name [facility] Accepted? Yes Does the patient need discharge transportation arranged? No Mobility issues discussed with transportation provider No Patient choice offered Yes List Provided Yes [facility] List Provided Shelter Facility * Plan of Care - Alyssa Perez RN - 05/11/2025 10:28 PM EDT Problem: Pain Goal: Patient goal is pain score less than 4, able to rest, and participant in treatment plan as appropriate Description: INTERVENTIONS: 1. Encourage patient or legal truck sales representative to report early pain and ask for pain medicine when needed 2. Assess pain using appropriate pain scale and include the scale used when documenting 3. Administer analgesics based on type and severity of pain and evaluate response within appropriate time frame 4. Implement non-pharmacological measures as appropriate and evaluate response 5. Consider cultural and social influences on pain and pain management 6. Notify LIP if interventions ineffective or patient reports new pain 7. Monitor vital signs including pulse ox, end-tidal CO2 based on pain intervention 8. Reassess pain per policy 9. Teach patient or legal truck sales representative interventions for comforting Outcome: Progressing Note: Evaluation of progress towards goal: Patient is getting assessed on the 0- 10 scale. Patient has PRN pain medication available. Will continue to monitor Problem: Safety Goal: Patient will be injury free during hospitalization Description: INTERVENTIONS: 1. Assess patient's risk for falls and implement fall prevention plan of care per policy 2. Provide and maintain a safe environment 3. Proper use of double Identifiers 4. Medication administration using the 5 rights 5. Hand hygiene 6. Specimens are labeled at the bedside 7. Instruct patient/ patient truck sales representative about use of safety devices 8. Include patient/ patient truck sales representative in decisions related to safety Outcome: Progressing Note: Evaluation of progress towards goal: Patient has remained injury free at this time. Bed is its lowest position with the wheels locked. Call light is in reach Problem: Infection Goal: Absence of infection during hospitalization Description: INTERVENTIONS 1. Assess and monitor for signs and symptoms of infection. 2. Monitor lab/diagnostic results. 3. Monitor all insertion sites i.e., indwelling lines, tubes and drains. 4. Monitor endotracheal (as able) and nasal secretions for changes in amount and color. 5. Administer medications as ordered. 6. Instruct and encourage patient and family to use good hand hygiene technique. 7. Identify and instruct patient/patient truck sales representative in use of appropriate isolation precautionsfor identified infection/symptoms. 8. Provide and discuss with patient/patient truck sales representative on educational MDRO sheet. 9. Encourage and monitor nutritional status daily and consult card tender if indicated. 10. Implement neutropenic guidelines as needed. Outcome: Progressing Note: Evaluation of progress towards goal: Patient evaluated for s/s of infection. Patient's vital signs, labs, and diagnostic results are being monitored each shift. Patient remains free from infection at this time * Plan of Care - Jules Aggarwal RCP - 05/11/2025 7:26 PM EDT Problem: Inadequate Breathing Pattern Goal: Patient will achieve/maintain normal respiratory rate/effort Description: Patient's goal is: INTERVENTIONS 1. Assess and monitor respiratory rate, effort, breathing pattern, and oxygenation 2. Monitor patient for restlessness, anxiety, air hunger 3. Assess physical activity tolerance 4. Assess tobacco history; ask, advise, and refer as appropriate 5. Collaborate with interdisciplinary team and initiate plans/interventions as needed Note: Respiratory Therapy Clinical Practice Guidelines Consult Vital Signs Pulse: 95 Resp: (!) 26 SpO2: 91 % O2 Device: Nasal cannula O2 Flow Rate (L/min): 3 L/min Patient Position: Semi-fowlers Respiratory Assessment Assessment Type: Pre-treatment Level of Consciousness: Alert Respiratory Pattern: Regular Chest Assessment: Chest expansion symmetrical Bilateral Breath Sounds: Diminished, Crackles/Rales Patient Active Problem List Diagnosis Respiratory failure ([facility]) Acute exacerbation of CHF (congestive heart failure) ([facility] [place]) Last Chest XRAY: Reviewed Pulmonary History: Reviewed RT Reassessment Due In: 12 hours Bronchodilator Respiratory Rate Level 3: 20-25 Dyspnea Level 2: Periodic SOB Breath Sounds Level 2: Diminished and/or faint wheezes Respiratory History Level 1: None Oxygen to Keep SpO2 Greater Than Or Equal To 92% Level 2: 1-3 LPM 25%-35% or NIV 41 - 50% Peak Flow ([facility] Only) Home Therapy: Not Applicable Patients Current Level & Intervention: 3 Four times daily and Q4 PRN as needed for wheezing Broncho-Pulmonary Hygiene Level of Movement Level 1: Actively changing positions without assistance Breath Sounds Level 1: Slightly diminished or clear Cough Level 1: Strong, effective Chest X-Ray Level 1: Possible signs of consolidation and/or atelectasis or clear ; No CXR available Sputum Production Level 1: None or small amount of thin or watery secretions with effective cough History & Physical Level 1: None or New onset of bronchitis or existing chronic pulmonary condition. (not in an exacerbation) SpO2 to O2 Need Level 1: >92% on room air or NC < 3 lpm Patients Current Level & Intervention: 1 Teach/instruct patient to cough and deep breathe Q1-2 hours Evaluation of progress towards goal: Pt stable, Noc pulse Ox study tonight * Plan of Care - Katharine Castañeda RN - 05/11/2025 1:24 PM EDT Problem: Pain Goal: Patient goal is pain score less than 4, able to rest, and participant in treatment plan as appropriate Description: INTERVENTIONS: 1. Encourage patient or legal truck sales representative to report early pain and ask for pain medicine when needed 2. Assess pain using appropriate pain scale and include the scale used when documenting 3. Administer analgesics based on type and severity of pain and evaluate response within appropriate time frame 4. Implement non-pharmacological measures as appropriate and evaluate response 5. Consider cultural and social influences on pain and pain management 6. Notify LIP if interventions ineffective or patient reports new pain 7. Monitor vital signs including pulse ox, end-tidal CO2 based on pain intervention 8. Reassess pain per policy 9. Teach patient or legal truck sales representative interventions for comforting Outcome: Progressing Note: Evaluation of progress towards goal: pt able to verbalize when in pain, will continue to assess Problem: Safety Goal: Patient will be injury free during hospitalization Description: INTERVENTIONS: 1. Assess patient's risk for falls and implement fall prevention plan of care per policy 2. Provide and maintain a safe environment 3. Proper use of double Identifiers 4. Medication administration using the 5 rights 5. Hand hygiene 6. Specimens are labeled at the bedside 7. Instruct patient/ patient truck sales representative about use of safety devices 8. Include patient/ patient truck sales representative in decisions related to safety Outcome: Progressing Note: Evaluation of progress towards goal: pt remains injury free during hospitalization, personal items and call light within reach. Will continue to monitor Problem: Infection Goal: Absence of infection during hospitalization Description: INTERVENTIONS 1. Assess and monitor for signs and symptoms of infection. 2. Monitor lab/diagnostic results. 3. Monitor all insertion sites i.e., indwelling lines, tubes and drains. 4. Monitor endotracheal (as able) and nasal secretions for changes in amount and color. 5. Administer medications as ordered. 6. Instruct and encourage patient and family to use good hand hygiene technique. 7. Identify and instruct patient/patient truck sales representative in use of appropriate isolation precautionsfor identified infection/symptoms. 8. Provide and discuss with patient/patient truck sales representative on educational MDRO sheet. 9. Encourage and monitor nutritional status daily and consult card tender if indicated. 10. Implement neutropenic guidelines as needed. Outcome: Progressing Note: Evaluation of progress towards goal: patient remains afebrile, no S/S of infection. Will continue to monitor Problem: Knowledge Deficit Goal: Patient/patient truck sales representative demonstrates understanding of disease process, treatment plan,medications, and discharge instructions Description: INTERVENTIONS 1. Complete learning assessment and assess knowledge base 2. Provide teaching at level of understanding 3. Provide teaching via preferred learning method(s) Outcome: Progressing Note: Evaluation of progress towards goal: patient is aware of and understands treatment plan, questions and concerns were answered. Problem: Discharge Planning Goal: Discharge to post-acute care, other facility, or home with appropriate resources Description: Patient's goal is: home pending PT/OT eval INTERVENTIONS 1. Conduct assessment to determine patient/family and health care team treatment goals, and need for post-acute services based on payer coverage, community resources, and patient preferences, and barriers to discharge 2. Coordinate with Social work, Care Navigation, and Utilization Review to arrange appropriate level of services according to patient's needs based on patient preference and payer coverage in collaboration with the physician and health care team 3. Address psychosocial, clinical, and financial barriers to discharge as identified in assessment in conjunction with the patient/family and health care team 4. Consult appropriate ancillary services (i.e.. PT/OT/ST, etc) as needed 5. Communicate with and update the patient/family, physician, and health care team regarding progress on the discharge plan 6. Identify discharge learning needs (meds, wound care, etc). 7. Arrange for needed discharge transportation as appropriate Outcome: Progressing Note: Evaluation of progress towards goal: patient understands, questions and concerns were addressed Problem: Inadequate Breathing Pattern Goal: Patient will achieve/maintain normal respiratory rate/effort Description: Patient's goal is: INTERVENTIONS 1. Assess and monitor respiratory rate, effort, breathing pattern, and oxygenation 2. Monitor patient for restlessness, anxiety, air hunger 3. Assess physical activity tolerance 4. Assess tobacco history; ask, advise, and refer as appropriate 5. Collaborate with interdisciplinary team and initiate plans/interventions as needed Outcome: Progressing Note: Evaluation of progress towards goal: patients maintaining normal respiratory rate on current oxygen flow, will continue to assess Problem: Moderate - High Risk Fall Score Description: [place] Fall Score of =/> 25 or indicated [address] [facility] Assessment Goal: Patient should be free from fall Description: Interventions: 1. [place] to environment 2. Hourly rounds addressing the 4 P's (Pain, Positioning, Possessions, Potty) 3. Clear area of hazards (spills, clutter, electrical cords, unnecessary equipment) 4. Place equipment (bed & TV controls, call light, phone, urinal) within reach 5. Encourage patient to wear glasses and hearing aides as appropriate 6. Maintain bed in lowest position 7. Lock wheels on bed/wheelchair 8. Provide adequate lighting, including night light 9. Assess need for additional bedding, food/fluids, pain med's prior to sleep/routinely 10. Provide gripper slippers or personal non-skid footwear 11. Teach patient and patient truck sales representative to maintain environment for safety and engage in all aspects of fall prevention program 12. Remind patient to call for help before getting out of bed 13. Initiate bed/chair/exit alarms supportive devices as appropriate, (chair wedge, no-skid floor mat, raised edge mattress, hip protectors) 14. Locate patient bed assignment for optimal visualization 15. Evaluate and identify Safe Patient Handling Equipment needs 16. Provide supervision when out of bed or chair 17. Utilize gait belt as needed to assist with ambulation 18. Place adaptive equipment (cane, walker) within reach 19. Request patient truck sales representative bring adaptive equipment/mobility aids from home or obtain and provide as needed 20. Consult pharmacy regarding effects of med's affecting mobility, cognition, and alternatives 21. Obtain physician order for PT if risk factors associated with mobility are present 22. Obtain physician order for OT as appropriate 23. Utilize diversional activities 24. Educate patient and patient truck sales representative how to maintain a safe environment during visitationtimes (notify nurse prior to leaving bedside) 25. Consider appropriateness of medical or non-director medical science 26. Set up voiding schedule as appropriate (every 2 hours) Outcome: Progressing Note: Evaluation of progress towards goal: pt remains free from fall, personal items and call lightwithin reach, area clear of hazards. Will continue to monitor Problem: Potential for Compromised Skin Integrity Goal: Skin integrity is maintained or improved Description: Patient's goal is: INTERVENTIONS 1. Perform initial skin assessment on admission and as needed 2. Turn patient every 2 hours and PRN 3. Relieve pressure to bony prominences 4. Avoid shearing 5. Keep skin clean and dry 6. Alternate a full bath with partial baths for elderly 7. Apply lotion/moisturizer on skin 8. Monitor patient's hygiene practices 9. Float heels 10. Collaborate with interdisciplinary team and initiate plans and interventions as needed Outcome: Progressing Note: Evaluation of progress towards goal: pt able to turn, no skin breakdown this shift. Will continue to assess Goal: Patient's nutritional intake is adequate Description: Patient's goal is: INTERVENTIONS 1. Assess and monitor food intake and supplements, patient food preferences, nausea, vomiting, labs, oral cavity (gums, teeth, tongue, mucosa), proper denture fit, and cultural beliefs 2. Monitor for signs of hypoglycemia and hyperglycemia 3. Collaborate with interdisciplinary team and initiate plan and interventions as ordered 4. Monitor patient's weight 5. Assist patient with meals/food selection 6. Assist patient with eating 7. Allow adequate time for meals 8. Provide pleasant environment during mealtime 9. Increase social contact during mealtimes 10. Plan activities to conserve energy 11. Encourage/perform oral hygiene as appropriate 12. Encourage patient to take dietary supplement as ordered 13. Collaborate with clinical card tender 14. Include patient/ patient's truck sales representative in decisions related to nutrition Outcome: Progressing Note: Evaluation of progress towards goal: pt tolerating ordered diet Problem: Urinary Incontinence Goal: Perineal skin integrity is maintained or improved Description: INTERVENTIONS 1. Assess genitourinary system, perineal skin, labs (urinalysis), and history of incontinence to include past management, aggravating, and alleviating factors 2. Keep skin clean and dry 3. Apply skin protectant 4. Develop skin care regimen 5. Provide privacy when changing patients incontinence device to maintain their dignity 6. Consider placing an indwelling catheter 7. Collaborate with interdisciplinary team and initiate plans and interventions as needed Outcome: Progressing Note: Evaluation of progress towards goal: perineal skin remains intact, skin cleaned when soiled. No skin breakdown this shift. Will continue to assess Problem: Cardiovascular - Adult Goal: Maintains optimal cardiac output and hemodynamic stability Description: Patient's goal is: INTERVENTIONS: 1. Monitor vital signs, rhythm, and trends 2. Monitor for bleeding, hypotension and signs of decreased cardiac output 3. Administer ordered vasoactive medications to optimize hemodynamic stability 4. Monitor arterial and/or venous puncture sites for bleeding and/or hematoma 5. Assess quality of pulses, skin color and temperature Outcome: Progressing Note: Evaluation of progress towards goal: pt maintaining optimal cardiac output, will continue to assess * Discharge Planning Note - Marie Santamaria RN - 05/11/2025 11:24 AM EDT Ongoing Assessment for Discharge Needs Reviewed discharge milestones and patient needs related to discharge plan. Current estimated discharge date of May 13, 2025 has been reviewed by treatment team. Case discussed in daily transition rounds and chart reviewed by CN. Barriers to discharge include NIV vs 3L O2, IV lasix, await nephrostomy tube placement. Discharge Plan remains: SNF- accepted by [facility]. CN will continue to follow and is available should any further needs arise. Ongoing Assessment for Discharge Needs Flowsheet Row Most Recent Value Referral To Community Referrals / Resources Provided Denies needs Services Requested Patient expects to be discharged to: SNF Does the patient wish to have family/friend/caregiver involved in their discharge planning? No, thepatient does not wish to have family/friend/caregiver involved in their discharge planning Discharge Disposition SNF Facility/Service Name [facility] SNF Name [facility] SN[facility] SNF Accepted? Yes Does the patient need discharge transportation arranged? No Mobility issues discussed with transportation provider No Patient choice offered Yes List Provided Yes [facility] List Provided Shelter Facility - Marie Santamaria RN 05/11/25 11:29 AM * Plan of Care - Jules AggarwalMINA - 05/10/2025 8:25 PM EDT Problem: Inadequate Breathing Pattern Goal: Patient will achieve/maintain normal respiratory rate/effort Description: Patient's goal is: INTERVENTIONS 1. Assess and monitor respiratory rate, effort, breathing pattern, and oxygenation 2. Monitor patient for restlessness, anxiety, air hunger 3. Assess physical activity tolerance 4. Assess tobacco history; ask, advise, and refer as appropriate 5. Collaborate with interdisciplinary team and initiate plans/interventions as needed Note: Respiratory Therapy Clinical Practice Guidelines Consult Vital Signs Pulse: 90 Resp: 15 SpO2: 98 % O2 Device: Nasal cannula O2 Flow Rate (L/min): 2 L/min Patient Position: High-fowlers Respiratory Assessment Assessment Type: Pre-treatment Level of Consciousness: Alert Respiratory Pattern: Regular Chest Assessment: Chest expansion symmetrical Bilateral Breath Sounds: Diminished, Crackles/Rales Patient Active Problem List Diagnosis Respiratory failure ([facility]) Acute exacerbation of CHF (congestive heart failure) ([facility] [place]) Last Chest XRAY: Reviewed Pulmonary History: Reviewed RT Reassessment Due In: 12 hours Bronchodilator Respiratory Rate Level 1: Less than 20 Dyspnea Level 1: No SOB Breath Sounds Level 2: Diminished and/or faint wheezes Respiratory History Level 1: None Oxygen to Keep SpO2 Greater Than Or Equal To 92% Level 2: 1-3 LPM 25%-35% or NIV 41 - 50% Peak Flow ([employer] Only) Home Therapy: Not Applicable Patients Current Level & Intervention: 3 Four times daily and Q4 PRN as needed for wheezing Broncho-Pulmonary Hygiene Level of Movement Level 1: Actively changing positions without assistance Breath Sounds Level 1: Slightly diminished or clear Cough Level 1: Strong, effective Chest X-Ray Level 1: Possible signs of consolidation and/or atelectasis or clear ; No CXR available Sputum Production Level 1: None or small amount of thin or watery secretions with effective cough History & Physical Level 1: None or New onset of bronchitis or existing chronic pulmonary condition. (not in an exacerbation) SpO2 to O2 Need Level 1: >92% on room air or NC < 3 lpm Patients Current Level & Intervention: 1 Teach/instruct patient to cough and deep breathe Q1-2 hours Evaluation of progress towards goal: Pt stable, N[employer] observed * Plan of Care - Jesus Campuzano RN - 05/10/2025 7:57 PM EDT Problem: Pain Goal: Patient goal is pain score less than 4, able to rest, and participant in treatment plan as appropriate Description: INTERVENTIONS: 1. Encourage patient or legal truck sales representative to report early pain and ask for pain medicine when needed 2. Assess pain using appropriate pain scale and include the scale used when documenting 3. Administer analgesics based on type and severity of pain and evaluate response within appropriate time frame 4. Implement non-pharmacological measures as appropriate and evaluate response 5. Consider cultural and social influences on pain and pain management 6. Notify LIP if interventions ineffective or patient reports new pain 7. Monitor vital signs including pulse ox, end-tidal CO2 based on pain intervention 8. Reassess pain per policy 9. Teach patient or legal truck sales representative interventions for comforting Outcome: Progressing Note: Evaluation of progress towards goal: Patient is experiencing no pain at this time. Will continue to monitor and reassess patient and use pain medications and interventions as needed per physician order. Problem: Safety Goal: Patient will be injury free during hospitalization Description: INTERVENTIONS: 1. Assess patient's risk for falls and implement fall prevention plan of care per policy 2. Provide and maintain a safe environment 3. Proper use of double Identifiers 4. Medication administration using the 5 rights 5. Hand hygiene 6. Specimens are labeled at the bedside 7. Instruct patient/ patient truck sales representative about use of safety devices 8. Include patient/ patient truck sales representative in decisions related to safety Outcome: Progressing Note: Evaluation of progress towards goal: Patient will remain free from any hazards with adequate lighting, call light within reach, and hourly rounding. Problem: Inadequate Breathing Pattern Goal: Patient will achieve/maintain normal respiratory rate/effort Description: Patient's goal is: INTERVENTIONS 1. Assess and monitor respiratory rate, effort, breathing pattern, and oxygenation 2. Monitor patient for restlessness, anxiety, air hunger 3. Assess physical activity tolerance 4. Assess tobacco history; ask, advise, and refer as appropriate 5. Collaborate with interdisciplinary team and initiate plans/interventions as needed Outcome: Progressing Note: Evaluation of progress towards goal: Patient's respiratory rate and spo2 will be monitored hourly and by pulse ox. Reassessment every four hours and ensuring adequate oxygen is given at all times. Will continue to monitor. Problem: Moderate - High Risk Fall Score Description: Young Fall Score of =/> 25 or indicated by [facility] Rehab Assessment Goal: Patient should be free from fall Description: Interventions: 1. [place] to environment 2. Hourly rounds addressing the 4 P's (Pain, Positioning, Possessions, Potty) 3. Clear area of hazards (spills, clutter, electrical cords, unnecessary equipment) 4. Place equipment (bed & TV controls, call light, phone, urinal) within reach 5. Encourage patient to wear glasses and hearing aides as appropriate 6. Maintain bed in lowest position 7. Lock wheels on bed/wheelchair 8. Provide adequate lighting, including night light 9. Assess need for additional bedding, food/fluids, pain med's prior to sleep/routinely 10. Provide gripper slippers or personal non-skid footwear 11. Teach patient and patient truck sales representative to maintain environment for safety and engage in all aspects of fall prevention program 12. Remind patient to call for help before getting out of bed 13. Initiate bed/chair/exit alarms supportive devices as appropriate, (chair wedge, no-skid floor mat, raised edge mattress, hip protectors) 14. Locate patient bed assignment for optimal visualization 15. Evaluate and identify Safe Patient Handling Equipment needs 16. Provide supervision when out of bed or chair 17. Utilize gait belt as needed to assist with ambulation 18. Place adaptive equipment (cane, walker) within reach 19. Request patient truck sales representative bring adaptive equipment/mobility aids from home or obtain and provide as needed 20. Consult pharmacy regarding effects of med's affecting mobility, cognition, and alternatives 21. Obtain physician order for PT if risk factors associated with mobility are present 22. Obtain physician order for OT as appropriate 23. Utilize diversional activities 24. Educate patient and patient truck sales representative how to maintain a safe environment during visitationtimes (notify nurse prior to leaving bedside) 25. Consider appropriateness of medical or non-director medical science 26. Set up voiding schedule as appropriate (every 2 hours) Outcome: Progressing Note: Evaluation of progress towards goal: Patient will have adequate lighting and call light within reach. Patient's room will remain free from any hazards and will continue to be monitored per hourly rounding. Problem: Urinary Incontinence Goal: Perineal skin integrity is maintained or improved Description: INTERVENTIONS 1. Assess genitourinary system, perineal skin, labs (urinalysis), and history of incontinence to include past management, aggravating, and alleviating factors 2. Keep skin clean and dry 3. Apply skin protectant 4. Develop skin care regimen 5. Provide privacy when changing patients incontinence device to maintain their dignity 6. Consider placing an indwelling catheter 7. Collaborate with interdisciplinary team and initiate plans and interventions as needed Outcome: Progressing Note: Evaluation of progress towards goal: Patient will remain dry by hourly rounding and being changed as needed. Powders and creams will be used if needed to prevent skin breakdown and intake/output will be monitored. All urinary sanitary items will be changed per protocol. Problem: Cardiovascular - Adult Goal: Maintains optimal cardiac output and hemodynamic stability Description: Patient's goal is: INTERVENTIONS: 1. Monitor vital signs, rhythm, and trends 2. Monitor for bleeding, hypotension and signs of decreased cardiac output 3. Administer ordered vasoactive medications to optimize hemodynamic stability 4. Monitor arterial and/or venous puncture sites for bleeding and/or hematoma 5. Assess quality of pulses, skin color and temperature Outcome: Progressing Note: Evaluation of progress towards goal: Patient HR and BP will be monitored and assessed per orders. Medications and interventions will be implemented per doctors approval. * Discharge Planning Note - Salud Blanco - 05/10/2025 3:12 PM EDT DISCHARGE PLANNING NOTE Referral sent to [facility]/ [facility] [employer] [facility], [place], [place] (P# ; F# ) * Discharge Planning Note - Marie Santamaria RN - 05/10/2025 2:57 PM EDT Images from the original note were not included. Ongoing Assessment for Discharge Needs Reviewed discharge milestones and patient needs related to discharge plan. Current estimated discharge date of May 13, 2025 has been reviewed by treatment team. Case discussed in daily transition rounds and chart reviewed by CN. Barriers to discharge include NIV vs 3L O2, IV lasix and antibiotics, await nephrostomy tube placement. Patient was evaluated by PT/OT who recommend SNF. CN met with patient to discuss SNF placement. Patient agreeable to SNF. SNF list given for review and choice. Patient requests referral to [facility] in [place]. [facility] tasked SNF referral, await acceptance. Discharge Plan: SNF. CN will continue to follow and is available should any further needs arise. Ongoing Assessment for Discharge Needs Flowsheet Row Most Recent Value Referral To Community Referrals / Resources Provided Denies needs Services Requested Patient expects to be discharged to: SNF Does the patient wish to have family/friend/caregiver involved in their discharge planning? No, thepatient does not wish to have family/friend/caregiver involved in their discharge planning Discharge Disposition SNF Facility/Service Name [facility] SNF Name -- [pending acceptance] Does the patient need discharge transportation arranged? No Mobility issues discussed with transportation provider No Patient choice offered Yes List Provided Yes [facility] List Provided Shelter Facility - Marie Santamaria RN 05/10/25 3:00 PM * PT/OT/ASSISTANT TODDLER TEACHER - Alejandra Charlton OT/Nestor - 05/10/2025 2:43 PM EDT Occupational Therapy Evaluation Discharge Recommendations for Safe Patient Transition OT Discharge Disposition Recommendation: Post acute - moderate OT Post Acute Moderate Rehab Needs: Recommend moderate intensity rehab, Tolerate 1-2 hrs of therapy3-5 days/wk, Subacute or chronic functional impairment Current Impairments Informing Therapy Recommendation: Ambulation status/safety, Fall risk, ADL status, Endurance level Therapy Plan Need for skilled Occupational Therapy to address deficits in ADL independence and functional mobility due to a status decline resulting from admission on 05/08/25 SOB - admitted to [facility] for Bipap. Pt has history of LIVIER on 03/21/25, went to rehab a couple weeks and was doing well, then has hospitalization with CHF and a second admission with UTI. Pt has been home 4 days and admitted here. Pt has history of pyelonephritis with stents - will likely need nephro drains placed this admission Pt being treated for CHF exacerbation, CKD and respiratory failure. Pt lives at home with spouse and has family support local. 6 Clicks: Daily Activity Putting on and taking off regular lower body clothing?: Total Bathing (including washing, rinsing, drying)?: A lot Toileting, which includes using toilet, bedpan or urinal?: Total Putting on and taking off regular upper body clothing?: A lot Taking care of personal grooming such as brushing teeth?: A little Eating meals?: A little Scoring Daily Activity Raw Score: 12 [facility] G Code Modifier: CL Past Medical History: Diagnosis Date Acute exacerbation of CHF (congestive heart failure) ([facility]) 05/08/2025 History reviewed. No pertinent surgical history. No chief complaint on file. OT Treatment/Interventions: ADL retraining, Functional transfer training, UE strengthening/ROM, Endurance training, Patient/family training, Balance, Bed mobility, Compensatory technique education, Functional activities OT Frequency: 5-6days/week OT Duration: LOS Assessment Patient Assessment Therapy Problem List: Decreased ADL status, Decreased balance, Decreased endurance, Decreased fine motor, Decreased gross motor, Decreased high-level ADLs, Decreased mobility, Decreased safe judgement during ADL, Decreased self- care trans, Decreased UE strength Patient Response to Treatment: Tolerated evaluation without adverse reaction Mood/Affect: Flat Rehab Prognosis: Good, With continued OT status post acute discharge Visit RN Communication: Yes Medical Record Reviewed: Yes OT Type of Visit: Evaluation Precautions Activity: early mobility yes Equipment: gait belt, boni stedy Telemetry/Dev Technical Mgr: Yes Oxygen Used: 3.5L Other: high fall risk Pain Assessment Pain Assessment: 0-10 Pain Score: 4 Observed Behavior: Calm Pain Location: Leg Pain Orientation: Left Pain Intervention(s): Repositioned, Ambulation/increased activity Pain 2 Observed Behavior: Calm Home Living Type of Home: Apartment Home Layout: One level Stairs to Enter: ramp Bathroom Shower/Tub: Walk-in shower Bathroom Toilet: Raised Bathroom Equipment: Grab bars in shower, Shower chair, Hand-held shower, Grab bars around toilet, Commode Home Equipment: Rolling walker, 4 Wheeled walker, Cane, Wheelchair-manual, Other (Comment) Other : pt had LIVIER 03/21/25, went to rehab, spouse reports pt was walking all over the place , then went to hospital for CHF, then had second admission for UTI, reports minimal walking over last monthdue to hospitalizations Prior Function Lives With: Spouse (works maritime officer) Receives Help From: Family (kids and sister local) Level of Mobility: (spouse assist with ADL tasks as needed, minimal walking since LIVIER) Homemaking Assistance: (spouse completes) Other: 1 recent fall at home, has not been home much over past 1-2 months - in rehab or hospitals ADL / IADL Eating Assistance: Setup Grooming Assistance: Min assist (seated) Bathing/Showering Assistance: Max assist (min a UB and max a LB) Toilet/Commode Assistance: Total assist UE Dressing Assistance: Min assist LE Dressing Assistance: Total assist Other: poor tolerance to activity, limited due to weakness and body habitus Home Management - IADL Other: poor tolerance to activity, limited due to weakness and body habitus Hearing / Speech / Vision Hearing: Within Functional Limits Speech: Within Functional Limits Cognition Overall Cognitive Status: Within Functional Limits Sensation Overall Sensation Status: Consistent with premorbid status (BLE numbness) Bed Mobility Supine to Sit: Max assist (x 2) Sit to Supine: (up to recliner at end of session wtih call light) Other: HOB elevated and use of rail, assist to bring hips forward to EOB, pt able to self support at EOB with BUE Transfers Sit to Stand: Min assist (x 2) Stand to Sit: Min assist (x 2) Bed to Chair: Total assist (boni stedy) Other: complete STS with RW, pt unable to advance feet. Return to sitting and use of boni stedy to transfer with min a x 2 Gait Other: not safe to attempt due to weakness and SOB Balance Sitting Balance: Static: Fair Sitting Balance: Dynamic: Poor Standing Balance: Static: Fair Standing Balance: Dynamic: Poor Other: boni stedy for transfers RUE Assessment: (deconditioned) LUE Assessment: (deconditioned) Activity Tolerance Endurance: Tolerates <30 minutes activity WITHOUT vital sign changes Other: pt very SOB with minimal activity, SpO2 WNL Plan Occupational Therapy Care Plan Occupational Therapy Care Plan (Active) Template: OT - Occupational Therapy Problem: Activity Tolerance Dates: Start: 05/10/25 Disciplines: OT Goal: No limitations to activity tolerance Dates: Start: 05/10/25 Expected End: 06/03/25 Description: Goal Description: Disciplines: OT Problem: Bed Mobility Dates: Start: 05/10/25 Disciplines: OT Goal: Patient will perform bed mobility with Modified [place] Dates: Start: 05/10/25 Expected End: 06/03/25 Description: Goal Description: Disciplines: OT Problem: Functional Mobility Dates: Start: 05/10/25 Disciplines: OT Goal: Patient will perform functional mobility with Modified [place] Dates: Start: 05/10/25 Expected End: 06/03/25 Description: Goal Description: Disciplines: OT Problem: Other (Customize) Dates: Start: 05/10/25 Disciplines: OT Goal: Improve Dates: Start: 05/10/25 Expected End: 06/03/25 Description: Pt will complete all areas of ADL Tasks at Mod I with use of DME as needed and good safety awareness Disciplines: OT Problem: Sitting Balance Dates: Start: 05/10/25 Disciplines: OT Goal: Improve balance to normal Dates: Start: 05/10/25 Expected End: 06/03/25 Description: Static Dynamic Disciplines: OT Problem: Standing Balance Dates: Start: 05/10/25 Disciplines: OT Goal: Improve balance to good Dates: Start: 05/10/25 Expected End: 06/03/25 Description: Static Dynamic Disciplines: OT Problem: Strength Dates: Start: 05/10/25 Disciplines: OT Goal: Improve strength Dates: Start: 05/10/25 Expected End: 06/03/25 Description: Pt will tolerate BUE HEP to progress stamina to care for self Disciplines: OT Problem: Transfers Dates: Start: 05/10/25 Disciplines: OT Goal: Patient will perform transfers with Modified [place] Dates: Start: 05/10/25 Expected End: 06/03/25 Description: Goal Description: Disciplines: OT Occupational Therapy Care Plan (Resolved) There are no resolved problems. Principal Problem: Respiratory failure ([facility]) Active Problems: Acute exacerbation of CHF (congestive heart failure) ([facility]) * PT/OT/ASSISTANT TODDLER TEACHER - Mayi Pagan, PT - 05/10/2025 2:25 PM EDT Physical Therapy Evaluation Discharge Recommendations for Safe Patient Transition PT Discharge Disposition Recommendation: Post acute - moderate PT Post Acute Moderate Rehab Needs: Recommend moderate intensity rehab, Tolerate 1-2 hrs of therapy3-5 days/wk, Subacute or chronic functional impairment Current Impairments Informing Therapy Recommendation: Ambulation status/safety, Fall risk, Endurance level Pt admitted 05/08 with UTI. Recent admit for septic pyelonephritis/stents exchanged. Needs nephro drain placed. Pt recently had L hip replacement, was in rehab recovering well before discharging home with gross decline since. Dx: Resp failure, CHF exacerbation, CKD and B kidney stents. 6 Clicks: Basic Mobility Turning from your back to your side while in a flat bed without using bed rails?: A lot Moving from lying on your back to sitting on side of flat bed without using bed rails?: A lot Moving to and from bed to a chair (including w/c)?: Total Standing up from a chair using your arms (e.g. w/c or bedside chair)?: A lot To walk in hospital room?: Total Climbing 3-5 steps with a railing?: Total Scoring 6 Clicks: Basic Mobility Raw Score: 9 [facility] G Code Modifier: CL Past Medical History: Diagnosis Date Acute exacerbation of CHF (congestive heart failure) ([facility]) 05/08/2025 History reviewed. No pertinent surgical history. No chief complaint on file. Therapy Plan Need for skilled Physical Therapy to address deficits in functional mobility due to a status decline resulting from CHF. PT Treatment/Interventions: Functional transfer training, LE strengthening/ROM, Endurance training,Balance, Stair training, Bed mobility, Gait training, Functional activities, Neuromuscular reeducation PT Frequency: 5-6days/week PT Duration: Until goals met Assessment Patient Assessment Therapy Problem List: Decreased balance, Decreased endurance, Decreased mobility, Decreased LE strength Patient Response to Treatment: Slow progress, decreased activity tolerance Mood/Affect: Flat Rehab Prognosis: Good, With continued PT status post acute discharge Visit RN Communication: Yes Medical Record Reviewed: Yes PT Type of Visit: Evaluation Precautions Activity: early mobility yes Equipment: gait belt, boni stedy Telemetry/Dev Technical Mgr: Yes Oxygen Used: 3.5L Other: high fall risk Pain Assessment Pain Assessment: 0-10 Pain Score: 4 Observed Behavior: Calm Pain Location: Leg Pain Orientation: Left Pain Intervention(s): Repositioned, Ambulation/increased activity Response to Interventions: Pain unchanged Pain 2 Observed Behavior: Calm Home Living Type of Home: Apartment Home Layout: One level Stairs to Enter: ramp Stairs in Home: 0 Bathroom Shower/Tub: Walk-in shower Bathroom Toilet: Raised Bathroom Equipment: Grab bars in shower, Shower chair, Hand-held shower, Grab bars around toilet, Commode Bathroom Accessibility: Accessible Home Equipment: Rolling walker, 4 Wheeled walker, Cane, Wheelchair-manual, Other (Comment) (transport chair) Other : pt has been home x4 days. In and out of various hospitals vs rehab Prior Function Lives With: Spouse (works maritime officer) Receives Help From: Family (sister and children local for support) Level of Mobility: Needs assistance with ADLs or functional transfers or gait (Minimal ambulation with RW.) Homemaking Assistance: Needs assistance (spouse has been assisting with all home tasks and self care since February) Other: Pt [facility] prior to home discharge. Spouse reports she was amb around wellwith RW and making progress. Has since had gross mobility decline with limited activity Hearing / Speech / Vision Hearing: Within Functional Limits Speech: Within Functional Limits Cognition Overall Cognitive Status: (flat affect throughout. Cues for task completion) Sensation Overall Sensation Status: Consistent with premorbid status (neuropathy in hands and feet) Bed Mobility Supine to Sit: Max assist (x2) Other: HOB elevated. Assist for LE and trunk to come upright. Pt required increased time to maintain upright Transfers Sit to Stand: Min assist (x2) Stand to Sit: Min assist (x2) Bed to Chair: Total assist Other: 1st stand completed with RW for support. Pt with strong posterior lean and unable to get feet flat. Attempted correcting but tp reporting knees are going to buckle. REturned to sitting and boni stedy used for transfer to chair. Limited standing time Gait Other: unable to complete Balance Balance Evaluation: Exceptions to Functional Limits Sitting Balance: Static: Fair Sitting Balance: Dynamic: Fair Standing Balance: Static: Poor Standing Balance: Dynamic: Poor Other: boni stedy and 2 person assist for safet RLE Assessment: Exceptions to WFL (4-/5) LLE Assessment: Exceptions to WFL (2+/5) Activity Tolerance Endurance: Tolerates <30 minutes activity WITHOUT vital sign changes Plan Physical Therapy Care Plan Physical Therapy Care Plan (Active) Template: PT - Physical Therapy Problem: Activity Tolerance Dates: Start: 05/10/25 Disciplines: PT Goal: Tolerate > 30 minutes of activity WITH rest breaks Dates: Start: 05/10/25 Expected End: 06/10/25 Disciplines: PT Problem: Bed Mobility Dates: Start: 05/10/25 Disciplines: PT Goal: Patient will perform bed mobility with Contact Guard Dates: Start: 05/10/25 Expected End: 06/10/25 Description: Supine<>sit CGA Disciplines: PT Problem: Gait Dates: Start: 05/10/25 Disciplines: PT Goal: Patient will perform gait with Minimum Assist Dates: Start: 05/10/25 Expected End: 06/10/25 Description: Pt to amb 30' with RW and Min assist Disciplines: PT Problem: Standing Balance Dates: Start: 05/10/25 Disciplines: PT Goal: Improve balance to good Dates: Start: 05/10/25 Expected End: 06/10/25 Description: Pt will demonstrate good balance during amb with use of RW for support Disciplines: PT Problem: Strength Dates: Start: 05/10/25 Disciplines: PT Goal: Improve strength Dates: Start: 05/10/25 Expected End: 06/10/25 Description: Pt to improve LLE strength to 4/5 Disciplines: PT Problem: Transfers Dates: Start: 05/10/25 Disciplines: PT Goal: Patient will perform transfers with Minimum Assist Dates: Start: 05/10/25 Expected End: 06/10/25 Description: Sit<>stand with Min assist and use of RW for support Disciplines: PT Physical Therapy Care Plan (Resolved) There are no resolved problems. Principal Problem: Respiratory failure ([facility]) Active Problems: Acute exacerbation of CHF (congestive heart failure) ([facility]) * Plan of Care - Jamarcus Beavers RPH - 05/10/2025 1:58 PM EDT Problem: Medication Description: If medication is necessary, use low-risk medication that does not interfere with what matters to the older adult patient, mobility, or mentation across settings of care. Goal: Patient will be screened for high-risk medications once per stay Description: Interventions: 1. Pharmacist to perform medication review to screen for high-risk medications 2. Pharmacist to identify high-risk medications in the Plan of Care note 3. Pharmacist to make recommendations for follow-up in the Plan of Care note, if warranted Outcome: Completed Note: Medications individually and in combination may interfere with What Matters, Mentation, and safe Mobility because of the increased risk of confusion, delirium, unsteadiness and falls. Profile review indicates this patients has active orders for no high risk medications. Chart review also shows no change in renal function. * Discharge Planning Note - Tami Kearney - 05/10/2025 11:00 AM EDT DISCHARGE PLANNING NOTE Referral sent to [facility] in [place], [place] (P# ;F# ) * Plan of Care - Darrell Akers RCP - 05/10/2025 7:41 AM EDT Problem: Inadequate Breathing Pattern Goal: Patient will achieve/maintain normal respiratory rate/effort Description: Patient's goal is: INTERVENTIONS 1. Assess and monitor respiratory rate, effort, breathing pattern, and oxygenation 2. Monitor patient for restlessness, anxiety, air hunger 3. Assess physical activity tolerance 4. Assess tobacco history; ask, advise, and refer as appropriate 5. Collaborate with interdisciplinary team and initiate plans/interventions as needed Outcome: Progressing Note: Evaluation of progress towards goal: bilateral effusions, BiPAP at night Respiratory Therapy Clinical Practice Guidelines Consult Clinical Practice Guidelines Ordered Consult Assessment: Consult, Oxygen, Bronchodilator Oxygen Indications: Hypoxemia Bronchodilator Indications: Bronchospasm/wheezing Bronchodilator Total: 1 Respiratory Assessment Assessment Type: Pre-treatment Level of Consciousness: Responds to Voice Respiratory Pattern: Regular Chest Assessment: Chest expansion symmetrical Bilateral Breath Sounds: Diminished Patient Active Problem List Diagnosis Respiratory failure ([facility]) Acute exacerbation of CHF (congestive heart failure) ([facility]) Last Chest XRAY: Reviewed Pulmonary History: CHF RT Reassessment Due In: 12 hours Bronchodilator Respiratory Rate Level 1: Less than 20 Dyspnea Level 1: No SOB Breath Sounds Level 2: Diminished and/or faint wheezes Respiratory History Level 2: Positive risk factors including but not limited to: History of smoking; History of pulmonary complications ; Smoke inhalation, physical/chemical trauma to the lung or upper airway Oxygen to Keep SpO2 Greater Than Or Equal To 92% Level 2: 1-3 LPM 25%-35% or NIV 41 - 50% Peak Flow ([facility] Only) Home Therapy: Not Applicable Patients Current Level & Intervention: 2 Three times daily and Q4 PRN for wheezing, CXR bilateral effusions and base atelectasis, BiPAP overnight * Plan of Care - Anne Marie Martinez RN - 05/10/2025 7:18 AM EDT Problem: Pain Goal: Patient goal is pain score less than 4, able to rest, and participant in treatment plan as appropriate Description: INTERVENTIONS: 1. Encourage patient or legal truck sales representative to report early pain and ask for pain medicine when needed 2. Assess pain using appropriate pain scale and include the scale used when documenting 3. Administer analgesics based on type and severity of pain and evaluate response within appropriate time frame 4. Implement non-pharmacological measures as appropriate and evaluate response 5. Consider cultural and social influences on pain and pain management 6. Notify LIP if interventions ineffective or patient reports new pain 7. Monitor vital signs including pulse ox, end-tidal CO2 based on pain intervention 8. Reassess pain per policy 9. Teach patient or legal truck sales representative interventions for comforting Outcome: Progressing Note: Evaluation of progress towards goal: Pt assessed for pain via 0-10 pain scale. Pt has PRN analgesics available. Will continue to reassessed Pt's pain appropriately. Problem: Safety Goal: Patient will be injury free during hospitalization Description: INTERVENTIONS: 1. Assess patient's risk for falls and implement fall prevention plan of care per policy 2. Provide and maintain a safe environment 3. Proper use of double Identifiers 4. Medication administration using the 5 rights 5. Hand hygiene 6. Specimens are labeled at the bedside 7. Instruct patient/ patient truck sales representative about use of safety devices 8. Include patient/ patient truck sales representative in decisions related to safety Outcome: Progressing Note: Evaluation of progress towards goal: Pt remains free from injury at this time. Safety measures at bedside. Problem: Infection Goal: Absence of infection during hospitalization Description: INTERVENTIONS 1. Assess and monitor for signs and symptoms of infection. 2. Monitor lab/diagnostic results. 3. Monitor all insertion sites i.e., indwelling lines, tubes and drains. 4. Monitor endotracheal (as able) and nasal secretions for changes in amount and color. 5. Administer medications as ordered. 6. Instruct and encourage patient and family to use good hand hygiene technique. 7. Identify and instruct patient/patient truck sales representative in use of appropriate isolation precautionsfor identified infection/symptoms. 8. Provide and discuss with patient/patient truck sales representative on educational MDRO sheet. 9. Encourage and monitor nutritional status daily and consult card tender if indicated. 10. Implement neutropenic guidelines as needed. Outcome: Progressing Note: Evaluation of progress towards goal: Patient evaluated for S/S of infection. Patients vital signs, labs, and diagnostic results are being monitored each shift. Problem: Knowledge Deficit Goal: Patient/patient truck sales representative demonstrates understanding of disease process, treatment plan,medications, and discharge instructions Description: INTERVENTIONS 1. Complete learning assessment and assess knowledge base 2. Provide teaching at level of understanding 3. Provide teaching via preferred learning method(s) Outcome: Progressing Note: Evaluation of progress towards goal: Patient updated on plan of care. Patient's level of understanding assessed as appropriate. Problem: Discharge Planning Goal: Discharge to post-acute care, other facility, or home with appropriate resources Description: Patient's goal is: home pending PT/OT eval INTERVENTIONS 1. Conduct assessment to determine patient/family and health care team treatment goals, and need for post-acute services based on payer coverage, community resources, and patient preferences, and barriers to discharge 2. Coordinate with Social work, Care Navigation, and Utilization Review to arrange appropriate level of services according to patient's needs based on patient preference and payer coverage in collaboration with the physician and health care team 3. Address psychosocial, clinical, and financial barriers to discharge as identified in assessment in conjunction with the patient/family and health care team 4. Consult appropriate ancillary services (i.e.. PT/OT/ST, etc) as needed 5. Communicate with and update the patient/family, physician, and health care team regarding progress on the discharge plan 6. Identify discharge learning needs (meds, wound care, etc). 7. Arrange for needed discharge transportation as appropriate Outcome: Progressing Note: Evaluation of progress towards goal: Discharge Planning is in progress at this time. Plan remains to: home pending pt/ot eval Problem: Inadequate Breathing Pattern Goal: Patient will achieve/maintain normal respiratory rate/effort Description: Patient's goal is: INTERVENTIONS 1. Assess and monitor respiratory rate, effort, breathing pattern, and oxygenation 2. Monitor patient for restlessness, anxiety, air hunger 3. Assess physical activity tolerance 4. Assess tobacco history; ask, advise, and refer as appropriate 5. Collaborate with interdisciplinary team and initiate plans/interventions as needed Outcome: Progressing Note: Evaluation of progress towards goal: bipap vs 3LNC Problem: Moderate - High Risk Fall Score Description: Young Fall Score of =/> 25 or indicated by [facility] Assessment Goal: Patient should be free from fall Description: Interventions: 1. [place] to environment 2. Hourly rounds addressing the 4 P's (Pain, Positioning, Possessions, Potty) 3. Clear area of hazards (spills, clutter, electrical cords, unnecessary equipment) 4. Place equipment (bed & TV controls, call light, phone, urinal) within reach 5. Encourage patient to wear glasses and hearing aides as appropriate 6. Maintain bed in lowest position 7. Lock wheels on bed/wheelchair 8. Provide adequate lighting, including night light 9. Assess need for additional bedding, food/fluids, pain med's prior to sleep/routinely 10. Provide gripper slippers or personal non-skid footwear 11. Teach patient and patient truck sales representative to maintain environment for safety and engage in all aspects of fall prevention program 12. Remind patient to call for help before getting out of bed 13. Initiate bed/chair/exit alarms supportive devices as appropriate, (chair wedge, no-skid floor mat, raised edge mattress, hip protectors) 14. Locate patient bed assignment for optimal visualization 15. Evaluate and identify Safe Patient Handling Equipment needs 16. Provide supervision when out of bed or chair 17. Utilize gait belt as needed to assist with ambulation 18. Place adaptive equipment (cane, walker) within reach 19. Request patient truck sales representative bring adaptive equipment/mobility aids from home or obtain and provide as needed 20. Consult pharmacy regarding effects of med's affecting mobility, cognition, and alternatives 21. Obtain physician order for PT if risk factors associated with mobility are present 22. Obtain physician order for OT as appropriate 23. Utilize diversional activities 24. Educate patient and patient truck sales representative how to maintain a safe environment during visitationtimes (notify nurse prior to leaving bedside) 25. Consider appropriateness of medical or non-director medical science 26. Set up voiding schedule as appropriate (every 2 hours) Outcome: Progressing Note: Evaluation of progress towards goal: Pt will be free from falls this admission. High risk Fall scale interventions in place. Problem: Cardiovascular - Adult Goal: Maintains optimal cardiac output and hemodynamic stability Description: Patient's goal is: INTERVENTIONS: 1. Monitor vital signs, rhythm, and trends 2. Monitor for bleeding, hypotension and signs of decreased cardiac output 3. Administer ordered vasoactive medications to optimize hemodynamic stability 4. Monitor arterial and/or venous puncture sites for bleeding and/or hematoma 5. Assess quality of pulses, skin color and temperature Outcome: Progressing Note: Evaluation of progress towards goal: Patient on continuous heart monitor. Vitals assessed Q2 and PRN. * Plan of Care - Jesus Campuzano RN - 05/10/2025 2:00 AM EDT Problem: Pain Goal: Patient goal is pain score less than 4, able to rest, and participant in treatment plan as appropriate Description: INTERVENTIONS: 1. Encourage patient or legal truck sales representative to report early pain and ask for pain medicine when needed 2. Assess pain using appropriate pain scale and include the scale used when documenting 3. Administer analgesics based on type and severity of pain and evaluate response within appropriate time frame 4. Implement non-pharmacological measures as appropriate and evaluate response 5. Consider cultural and social influences on pain and pain management 6. Notify LIP if interventions ineffective or patient reports new pain 7. Monitor vital signs including pulse ox, end-tidal CO2 based on pain intervention 8. Reassess pain per policy 9. Teach patient or legal truck sales representative interventions for comforting Outcome: Progressing Note: Evaluation of progress towards goal: Patient is experiencing no pain at this time. Will continue to monitor and reassess patient and use pain medications and interventions as needed per physician order. Problem: Moderate - High Risk Fall Score Description: Young Fall Score of =/> 25 or indicated by [facility] Assessment Goal: Patient should be free from fall Description: Interventions: 1. [place] to environment 2. Hourly rounds addressing the 4 P's (Pain, Positioning, Possessions, Potty) 3. Clear area of hazards (spills, clutter, electrical cords, unnecessary equipment) 4. Place equipment (bed & TV controls, call light, phone, urinal) within reach 5. Encourage patient to wear glasses and hearing aides as appropriate 6. Maintain bed in lowest position 7. Lock wheels on bed/wheelchair 8. Provide adequate lighting, including night light 9. Assess need for additional bedding, food/fluids, pain med's prior to sleep/routinely 10. Provide gripper slippers or personal non-skid footwear 11. Teach patient and patient truck sales representative to maintain environment for safety and engage in all aspects of fall prevention program 12. Remind patient to call for help before getting out of bed 13. Initiate bed/chair/exit alarms supportive devices as appropriate, (chair wedge, no-skid floor mat, raised edge mattress, hip protectors) 14. Locate patient bed assignment for optimal visualization 15. Evaluate and identify Safe Patient Handling Equipment needs 16. Provide supervision when out of bed or chair 17. Utilize gait belt as needed to assist with ambulation 18. Place adaptive equipment (cane, walker) within reach 19. Request patient truck sales representative bring adaptive equipment/mobility aids from home or obtain and provide as needed 20. Consult pharmacy regarding effects of med's affecting mobility, cognition, and alternatives 21. Obtain physician order for PT if risk factors associated with mobility are present 22. Obtain physician order for OT as appropriate 23. Utilize diversional activities 24. Educate patient and patient truck sales representative how to maintain a safe environment during visitationtimes (notify nurse prior to leaving bedside) 25. Consider appropriateness of medical or non-director medical science 26. Set up voiding schedule as appropriate (every 2 hours) Outcome: Progressing Note: Evaluation of progress towards goal: Patient will have adequate lighting and call light within reach. Patient's room will remain free from any hazards and will continue to be monitored per hourly rounding. Problem: Cardiovascular - Adult Goal: Maintains optimal cardiac output and hemodynamic stability Description: Patient's goal is: INTERVENTIONS: 1. Monitor vital signs, rhythm, and trends 2. Monitor for bleeding, hypotension and signs of decreased cardiac output 3. Administer ordered vasoactive medications to optimize hemodynamic stability 4. Monitor arterial and/or venous puncture sites for bleeding and/or hematoma 5. Assess quality of pulses, skin color and temperature Outcome: Progressing Note: Evaluation of progress towards goal: Patient HR and BP will be monitored and assessed per orders. Medications and interventions will be implemented per doctors approval. * Plan of Care - Tomi Hernandez, [facility] - 05/09/2025 9:50 PM EDT Problem: Inadequate Breathing Pattern Goal: Patient will achieve/maintain normal respiratory rate/effort Description: Patient's goal is: INTERVENTIONS 1. Assess and monitor respiratory rate, effort, breathing pattern, and oxygenation 2. Monitor patient for restlessness, anxiety, air hunger 3. Assess physical activity tolerance 4. Assess tobacco history; ask, advise, and refer as appropriate 5. Collaborate with interdisciplinary team and initiate plans/interventions as needed Note: Respiratory Therapy Clinical Practice Guidelines Consult Vital Signs Heart Rate Source: Monitor, Pulse Ox Resp: 21 FiO2 (%): 40 % Respiratory Assessment Assessment Type: Subsequent assessment, Pre-treatment Level of Consciousness: Alert Respiratory Pattern: Regular Chest Assessment: Chest expansion symmetrical Bilateral Breath Sounds: Diminished Readings Vt Spontaneous (mL): 385 mL Minute Ventilation (L/min): 9.5 L/min PIP Observed (cm H2O): 16 cm H2O Total Rate : 21 Leakage: 14 Patient Active Problem List Diagnosis Respiratory failure ([facility]) Acute exacerbation of CHF (congestive heart failure) ([facility]) Last Chest XRAY: Reviewed Pulmonary History: See above RT Reassessment Due In: 12 hours Bronchodilator Respiratory Rate Level 1: Less than 20 Dyspnea Level 2: Periodic SOB Breath Sounds Level 2: Diminished and/or faint wheezes Respiratory History Level 1: None Oxygen to Keep SpO2 Greater Than Or Equal To 92% Level 2: 1-3 LPM 25%-35% or NIV 41 - 50% Peak Flow ([facility] Only) Home Therapy: Not Applicable Patients Current Level & Intervention: 2 Three times daily and Q4 PRN for wheezing Evaluation of progress towards goal : Pt receiving Q6H nebulizer treatments. * Discharge Planning Note - Eden Grant - 05/09/2025 10:09 AM EDT Images from the original note were not included. DISCHARGE PLANNING NOTE Patient Goals: Patient/Caregiver Goals Patient/Caregiver Goals: Home with Home Care Goals: Goals Home with spouse and home care services (pt-stated) Evaluation of progress towards goal: Home with spouse and C services Reviewed in daily transition rounds: Niv vs 3L o2 NC. Does not use home 02, IV atx. storage brine worker met with patient at bedside and introduced self and explained role. Patient's PCP is Dr. Cristiana Cazares and pharmacy is [facility] in [place]. Admitted to PCU due torespiratory failure and exacerbation of congestive heart failure. Pt is (spouse name is Walter Cm and phone number is [phone]). 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 She needs assistance cooking, dressing, and bathing and is not ambulating well. Does not use home 02, or bipap/cpap. Uses DME: cane, walker, bedside commode, shower chair, and wheelchair. Does not drive anymore since hip replacement. She uses [facility] afterhip replacement but has not had much therapy. Daughter and patient are both accepting of perhaps going to a facility if needed to get therapy pending recommendations. Has [facility] health insurance. Per patient report: Smoking: no ETOH: no Drugs: no Patient does not endorse issue obtaining food or medications and all utilities are working. Discharge disposition: Home with spouse and home health care services pending recommendations. Noted readmission risk per RN assesment on admission. Patient is 19% risk for unplanned readmit. Encouraged compliance with medications and follow-up. storage brine worker will continue to follow for ongoing discharge transition needs. - Eden Grant 05/09/25 10:09 AM Cosigned by ESTHER Prasad at 05/09/2025 10:45 AM EDT Associated attestation - Maame Zavala LSW - 05/09/2025 10:45 AM EDT Reviewed and agree with above. - ESTHER Prasad 05/09/25 10:45 AM * Plan of Care - Darrell Akers RCP - 05/09/2025 8:20 AM EDT Problem: Inadequate Breathing Pattern Goal: Patient will achieve/maintain normal respiratory rate/effort Description: Patient's goal is: INTERVENTIONS 1. Assess and monitor respiratory rate, effort, breathing pattern, and oxygenation 2. Monitor patient for restlessness, anxiety, air hunger 3. Assess physical activity tolerance 4. Assess tobacco history; ask, advise, and refer as appropriate 5. Collaborate with interdisciplinary team and initiate plans/interventions as needed Outcome: Progressing Note: Evaluation of progress towards goal: stable resp status, SOB resolved Respiratory Therapy Clinical Practice Guidelines Consult Clinical Practice Guidelines Ordered Consult Assessment: Consult, Oxygen, Bronchodilator Oxygen Indications: Hypoxemia Bronchodilator Indications: Bronchospasm/wheezing Bronchodilator Total: 1 Vital Signs BP: 124/56 Pulse: 73 SpO2: 100 % Respiratory Assessment Assessment Type: Post-treatment Level of Consciousness: Alert Respiratory Pattern: Regular Chest Assessment: Chest expansion symmetrical Bilateral Breath Sounds: Clear, Diminished Patient Active Problem List Diagnosis Respiratory failure ([facility] [place]) Acute exacerbation of CHF (congestive heart failure) ([facility] [place]) Last Chest XRAY: Reviewed Pulmonary History: chf RT Reassessment Due In: 12 hours Bronchodilator Respiratory Rate Level 1: Less than 20 Dyspnea Level 1: No SOB Breath Sounds Level 1: Clear Respiratory History Level 1: None Oxygen to Keep SpO2 Greater Than Or Equal To 92% Level 2: 1-3 LPM 25%-35% or NIV 41 - 50% Peak Flow ([facility] Only) Home Therapy: Not Applicable Patients Current Level & Intervention: 2 Three times daily and Q4 PRN for wheezing, no SOB breath sounds clear * Plan of Care - Jitendra Eddy RN - 05/09/2025 8:04 AM EDT Problem: Pain Goal: Patient goal is pain score less than 4, able to rest, and participant in treatment plan as appropriate Description: INTERVENTIONS: 1. Encourage patient or legal truck sales representative to report early pain and ask for pain medicine when needed 2. Assess pain using appropriate pain scale and include the scale used when documenting 3. Administer analgesics based on type and severity of pain and evaluate response within appropriate time frame 4. Implement non-pharmacological measures as appropriate and evaluate response 5. Consider cultural and social influences on pain and pain management 6. Notify LIP if interventions ineffective or patient reports new pain 7. Monitor vital signs including pulse ox, end-tidal CO2 based on pain intervention 8. Reassess pain per policy 9. Teach patient or legal truck sales representative interventions for comforting Outcome: Progressing Note: Evaluation of progress towards goal: patient has pain medication available. Will continue to monitor through shift Problem: Safety Goal: Patient will be injury free during hospitalization Description: INTERVENTIONS: 1. Assess patient's risk for falls and implement fall prevention plan of care per policy 2. Provide and maintain a safe environment 3. Proper use of double Identifiers 4. Medication administration using the 5 rights 5. Hand hygiene 6. Specimens are labeled at the bedside 7. Instruct patient/ patient truck sales representative about use of safety devices 8. Include patient/ patient truck sales representative in decisions related to safety Outcome: Progressing Note: Evaluation of progress towards goal: safety maintained through shift Problem: Infection Goal: Absence of infection during hospitalization Description: INTERVENTIONS 1. Assess and monitor for signs and symptoms of infection. 2. Monitor lab/diagnostic results. 3. Monitor all insertion sites i.e., indwelling lines, tubes and drains. 4. Monitor endotracheal (as able) and nasal secretions for changes in amount and color. 5. Administer medications as ordered. 6. Instruct and encourage patient and family to use good hand hygiene technique. 7. Identify and instruct patient/patient truck sales representative in use of appropriate isolation precautionsfor identified infection/symptoms. 8. Provide and discuss with patient/patient truck sales representative on educational MDRO sheet. 9. Encourage and monitor nutritional status daily and consult card tender if indicated. 10. Implement neutropenic guidelines as needed. Outcome: Progressing Note: Evaluation of progress towards goal: Patient on antibiotics. no new s/s of infection. Will continue to monitor labs and vitals Problem: Knowledge Deficit Goal: Patient/patient truck sales representative demonstrates understanding of disease process, treatment plan,medications, and discharge instructions Description: INTERVENTIONS 1. Complete learning assessment and assess knowledge base 2. Provide teaching at level of understanding 3. Provide teaching via preferred learning method(s) Outcome: Progressing Note: Evaluation of progress towards goal: patient updated on POC as needed Problem: Discharge Planning Goal: Discharge to post-acute care, other facility, or home with appropriate resources Description: Patient's goal is: INTERVENTIONS 1. Conduct assessment to determine patient/family and health care team treatment goals, and need for post-acute services based on payer coverage, community resources, and patient preferences, and barriers to discharge 2. Coordinate with Social work, Care Navigation, and Utilization Review to arrange appropriate level of services according to patient's needs based on patient preference and payer coverage in collaboration with the physician and health care team 3. Address psychosocial, clinical, and financial barriers to discharge as identified in assessment in conjunction with the patient/family and health care team 4. Consult appropriate ancillary services (i.e.. PT/OT/ST, etc) as needed 5. Communicate with and update the patient/family, physician, and health care team regarding progress on the discharge plan 6. Identify discharge learning needs (meds, wound care, etc). 7. Arrange for needed discharge transportation as appropriate Outcome: Progressing Note: Evaluation of progress towards goal: dc planning in progress * Plan of Care - Ramo Roca RN - 05/08/2025 9:00 PM EDT Problem: Pain Goal: Patient goal is pain score less than 4, able to rest, and participant in treatment plan as appropriate Description: INTERVENTIONS: 1. Encourage patient or legal truck sales representative to report early pain and ask for pain medicine when needed 2. Assess pain using appropriate pain scale and include the scale used when documenting 3. Administer analgesics based on type and severity of pain and evaluate response within appropriate time frame 4. Implement non-pharmacological measures as appropriate and evaluate response 5. Consider cultural and social influences on pain and pain management 6. Notify LIP if interventions ineffective or patient reports new pain 7. Monitor vital signs including pulse ox, end-tidal CO2 based on pain intervention 8. Reassess pain per policy 9. Teach patient or legal truck sales representative interventions for comforting Outcome: Progressing Note: Evaluation of progress towards goal: Patient denies pain at this time, will continue to monitor Problem: Safety Goal: Patient will be injury free during hospitalization Description: INTERVENTIONS: 1. Assess patient's risk for falls and implement fall prevention plan of care per policy 2. Provide and maintain a safe environment 3. Proper use of double Identifiers 4. Medication administration using the 5 rights 5. Hand hygiene 6. Specimens are labeled at the bedside 7. Instruct patient/ patient truck sales representative about use of safety devices 8. Include patient/ patient truck sales representative in decisions related to safety Outcome: Progressing Note: Evaluation of progress towards goal: Safety measures in place and patient free from injury Problem: Infection Goal: Absence of infection during hospitalization Description: INTERVENTIONS 1. Assess and monitor for signs and symptoms of infection. 2. Monitor lab/diagnostic results. 3. Monitor all insertion sites i.e., indwelling lines, tubes and drains. 4. Monitor endotracheal (as able) and nasal secretions for changes in amount and color. 5. Administer medications as ordered. 6. Instruct and encourage patient and family to use good hand hygiene technique. 7. Identify and instruct patient/patient truck sales representative in use of appropriate isolation precautionsfor identified infection/symptoms. 8. Provide and discuss with patient/patient truck sales representative on educational MDRO sheet. 9. Encourage and monitor nutritional status daily and consult card tender if indicated. 10. Implement neutropenic guidelines as needed. Outcome: Progressing Note: Evaluation of progress towards goal: Restarted on antibiotic therapy Problem: Knowledge Deficit Goal: Patient/patient truck sales representative demonstrates understanding of disease process, treatment plan,medications, and discharge instructions Description: INTERVENTIONS 1. Complete learning assessment and assess knowledge base 2. Provide teaching at level of understanding 3. Provide teaching via preferred learning method(s) Outcome: Progressing Note: Evaluation of progress towards goal: Educated patient on current plan of care, verbalizes understanding Problem: Inadequate Breathing Pattern Goal: Patient will achieve/maintain normal respiratory rate/effort Description: Patient's goal is: INTERVENTIONS 1. Assess and monitor respiratory rate, effort, breathing pattern, and oxygenation 2. Monitor patient for restlessness, anxiety, air hunger 3. Assess physical activity tolerance 4. Assess tobacco history; ask, advise, and refer as appropriate 5. Collaborate with interdisciplinary team and initiate plans/interventions as needed Outcome: Progressing Note: Evaluation of progress towards goal: On 5 lpm vs Bipap, work on breathing improving on Bipap Problem: Moderate - High Risk Fall Score Description: Young Fall Score of =/> 25 or indicated by [facility] Assessment Goal: Patient should be free from fall Description: Interventions: 1. [place] to environment 2. Hourly rounds addressing the 4 P's (Pain, Positioning, Possessions, Potty) 3. Clear area of hazards (spills, clutter, electrical cords, unnecessary equipment) 4. Place equipment (bed & TV controls, call light, phone, urinal) within reach 5. Encourage patient to wear glasses and hearing aides as appropriate 6. Maintain bed in lowest position 7. Lock wheels on bed/wheelchair 8. Provide adequate lighting, including night light 9. Assess need for additional bedding, food/fluids, pain med's prior to sleep/routinely 10. Provide gripper slippers or personal non-skid footwear 11. Teach patient and patient truck sales representative to maintain environment for safety and engage in all aspects of fall prevention program 12. Remind patient to call for help before getting out of bed 13. Initiate bed/chair/exit alarms supportive devices as appropriate, (chair wedge, no-skid floor mat, raised edge mattress, hip protectors) 14. Locate patient bed assignment for optimal visualization 15. Evaluate and identify Safe Patient Handling Equipment needs 16. Provide supervision when out of bed or chair 17. Utilize gait belt as needed to assist with ambulation 18. Place adaptive equipment (cane, walker) within reach 19. Request patient truck sales representative bring adaptive equipment/mobility aids from home or obtain and provide as needed 20. Consult pharmacy regarding effects of med's affecting mobility, cognition, and alternatives 21. Obtain physician order for PT if risk factors associated with mobility are present 22. Obtain physician order for OT as appropriate 23. Utilize diversional activities 24. Educate patient and patient truck sales representative how to maintain a safe environment during visitationtimes (notify nurse prior to leaving bedside) 25. Consider appropriateness of medical or non-director medical science 26. Set up voiding schedule as appropriate (every 2 hours) Outcome: Progressing Note: Evaluation of progress towards goal: Fall precautions in place and patient free from fall andinjury * Plan of Care - Alyssa Thomas RCP - 05/08/2025 8:48 PM EDT Problem: Inadequate Breathing Pattern Goal: Patient will achieve/maintain normal respiratory rate/effort Description: Patient's goal is: INTERVENTIONS 1. Assess and monitor respiratory rate, effort, breathing pattern, and oxygenation 2. Monitor patient for restlessness, anxiety, air hunger 3. Assess physical activity tolerance 4. Assess tobacco history; ask, advise, and refer as appropriate 5. Collaborate with interdisciplinary team and initiate plans/interventions as needed Outcome: Progressing Note: Respiratory Therapy Clinical Practice Guidelines Consult Vital Signs BP: 158/72 Pulse: 82 Heart Rate Source: Monitor, Pulse Ox Resp: 15 SpO2: 90 % O2 Device: Non-invasive mask (BiPap/CPAP) FiO2 (%): 45 % Patient Position: High-fowlers Respiratory Assessment Assessment Type: Initial assessment Level of Consciousness: Alert Respiratory Pattern: Regular Chest Assessment: Chest expansion symmetrical Bilateral Breath Sounds: Diminished Readings Vt Spontaneous (mL): 435 mL Minute Ventilation (L/min): 9.5 L/min PIP Observed (cm H2O): 16 cm H2O Total Rate : 20 Leakage: 5 Patient Active Problem List Diagnosis Respiratory failure ([facility]) Acute exacerbation of CHF (congestive heart failure) ([facility]) Last Chest XRAY: Reviewed Pulmonary History: Reviewed RT Reassessment Due In: 12 hours No CPG grid assessment at this timeEvaluation of progress towards goal: Patient transferred from OSH with CHF/SOB. Patient stable at this time on bipa and or 6L NC. documented in this encounter Plan of Treatment DateTypeDepartmentCare Team (Latest Contact Info)Rzxijxtjqmx12/25/2025 12:00 PM ESTOffice Visit [facility] [address] [facility] [place] [place] [id number] Elli Ortiz, ACADEMIC HOSPITALIST-LICENSING ANALYST [address] [facility] [place] [address] [facility] [place] [address] NameTypePriorityAssociated DiagnosesOrder ScheduleCreatinine, serumLabRoutine Urinary tract infection without hematuria, site unspecified 1 Occurrences starting 05/17/2025 until 05/28/2025WBCLabRoutine Urinary tract infection without hematuria, site unspecified 1 Occurrences starting 05/17/2025 until 05/28/2025Platelet countLabRoutine Urinary tract infection without hematuria, site unspecified 1 Occurrences starting 05/17/2025 until 05/28/2025Hepatic function panelLab Routine Urinary tract infection without hematuria, site unspecified 1 Occurrences starting 05/17/2025 until 05/28/2025PICC Line RemovalProcedures Routine Urinary tract infection without hematuria, site unspecified 1 Occurrences starting 05/18/2025 until 05/28/2025K TotalLabRoutine Urinary tract infection without hematuria, site unspecified twice weekly for 3 Occurrences starting 05/19/2025 until 05/19/2026documented as of this encounter Goals GoalPatient Goal TypeAssociated ProblemsRecent ProgressPatient-Stated?Author Home with spouse and home care services Eden Schilling Note: Evaluation of progress towards goal: Home with spouse and [facility] services documented as of this encounter Procedures Procedure NamePriorityDate/TimeAssociated DiagnosisCommentsBEDSIDE GLUCOSE Nfomagc4705/20/2025 8:47 AM EST CBC WITH AUTO SDTVWQPRMHMUAmzgpbr58/07/2025 5:44 AM EST HHDANDNECISbcnitk10/07/2025 5:44 AM EST GYOFBHCOYDzrljww26/07/2025 5:44 AM EST BASIC METABOLIC OSHJRTqhqkgj85/07/2025 5:44 AM EST BEDSIDE RJCTXOTYyvlxxn95/06/2025 9:04 PM EST BEDSIDE AUCXRQXWqfhrjn82/06/2025 4:07 PM EST XR ABDOMEN AP 1 UMSlrbkdb02/06/2025 3:28 PM EST BEDSIDE CPBBYHAMrjynlq86/06/2025 12:21 PM EST BEDSIDE IECDUIOTnfmbtl69/06/2025 8:47 AM EST CBC WITH AUTO BJXWJGUMYGERTpyjlqu83/06/2025 6:12 AM EST FQUJUYJXIUAonokqx43/06/2025 6:12 AM EST JCEMUTMVXFdpdpot67/06/2025 6:12 AM EST CK TOTALAdd-On05/19/2025 6:12 AM EST BASIC METABOLIC ZRYVDGdimimi65/06/2025 6:12 AM EST KAVTKRSFDHYNgftnii15/06/2025 4:00 AM ESTBLOOD GAS, WUFWKGPCFnqhzgt38/06/2025 12:12 AM EST EBYPOLFCVUHHpucboi62/06/2025 12:00 AM ESTBEDSIDE RDXISNUTexkmeh73/05/2025 9:44 PM EST ZVSAXLZHURRUjgbtyq76/05/2025 8:00 PM ESTBEDSIDE ECYPPGSTocvhto88/05/2025 4:26 PM EST XR CHEST 1 UMFdczhot78/05/2025 4:16 PM EST KBTOIHTDXHjebave67/05/2025 1:36 PM EST BEDSIDE LFKHGPZPzynlaa23/05/2025 12:48 PM EST GMEDITDZAQFOhmbdae64/05/2025 12:00 PM ESTBEDSIDE CMIJVMBGlnxxls70/05/2025 9:09 AM EST BEDSIDE HWNNEQYVfzuyxd94/05/2025 8:27 AM EST CBC WITH AUTO TEKUAIMTZRXBOhzlids71/05/2025 5:37 AM EST UAZPHSFPVMYymwrfj77/05/2025 5:37 AM EST QYWXFQLCIBvemxvo80/05/2025 5:37 AM EST BASIC METABOLIC SRMEUWznzulg08/05/2025 5:37 AM EST SSJCYWLKWKREbqvpid81/05/2025 4:00 AM KACADQPNFBSFIFUlzyhxs94/05/2025 12:00 AM ESTBEDSIDE UAKPREWBpcinqp00/04/2025 8:35 PM EST ASRVSRQTAMLYekuwdf15/04/2025 8:00 PM ESTBEDSIDE PMQXZFGVtnmwsr63/04/2025 5:02 PM EST AUHWXJSRFZydtjsr08/04/2025 1:42 PM EST BEDSIDE ERJTEGMNzplhhq16/04/2025 11:52 AM EST BEDSIDE TVMSZSWXxwbeyf03/04/2025 7:50 AM EST CBC WITH AUTO RTVURQZKYGTNRxjiixb16/04/2025 5:39 AM EST ASAZPGXVGMVufkknx76/04/2025 5:39 AM EST JAYBLSLPYWnseayo83/04/2025 5:39 AM EST CK MUAXSCimsaah03/04/2025 5:39 AM EST BASIC METABOLIC HRYFCLtvwllv52/04/2025 5:39 AM EST AYRKDYPUDUTSzzstmn99/04/2025 4:00 AM AGDLRVBMDQVFCPZvuftkg28/04/2025 12:00 AM ESTBEDSIDE LEFIMGXWkloxmc16/03/2025 10:00 PM EST BEDSIDE CQKFNWQGsjarmi97/03/2025 4:14 PM EST IR PERC NEPH TUBE LT + NGRAM + S&FQgxmlgm16/03/2025 3:30 PM EST BEDSIDE CKSZGMYIthpnvm64/03/2025 11:07 AM EST BEDSIDE QWKDTPHPokhldi07/03/2025 7:20 AM EST CBC WITH AUTO PFVSQZPDIKWDGanfuqk46/03/2025 6:37 AM EST RNGAXIKIIOCfyptjr73/03/2025 6:37 AM EST UNYAHODYHIuigefd05/03/2025 6:37 AM EST BASIC METABOLIC TTRBEJsymczx49/03/2025 6:37 AM EST CYRCEGSHJLLEojauez77/03/2025 4:00 AM PWMLMDNQLMTWFVCkzyfno24/03/2025 12:00 AM ESTBEDSIDE FWGHBMSRizzzye29/02/2025 9:30 PM EST ZYXEMTBVQTYKregkum90/02/2025 8:00 PM ESTBEDSIDE ZNBJLZTHvahbzk31/02/2025 4:14 PM EST BEDSIDE KWCPOQHImdcmja11/02/2025 12:24 PM EST BLOOD GAS, BVFDTURbefktg51/02/2025 11:50 AM EST PROTIME & HNBLGTK0505/15/2025 11:47 AM EST UCKRTAAPIIbfhwnw14/02/2025 11:47 AM EST XR CHEST 1 WVSczryjt79/02/2025 9:35 AM EST BEDSIDE LZVGTAZQgdvnci87/02/2025 8:09 AM EST CBC WITH AUTO XKMLVFVROKWQHacqyel34/02/2025 4:51 AM EST XLCAAJGWEBUgiejhm31/02/2025 4:51 AM EST CYWHPGSBAYhkotdq05/02/2025 4:51 AM EST LIVER WOJXCWfkvggb92/02/2025 4:51 AM EST BASIC METABOLIC DKUJHPrizyzi96/02/2025 4:51 AM EST PTENTANQQFSYttungj24/02/2025 4:00 AM PFOJGYSHAAWBYMKyrpwyh68/02/2025 12:00 AM EDTBEDSIDE TVVDJBMLnncpuf91/01/2025 9:27 PM EDT AZZJERKUVQWFjzebun35/01/2025 8:00 PM EDTBEDSIDE RSMHUDJQnnugra98/01/2025 4:45 PM EDT YYGYZBMGKUFKifaxlx27/01/2025 4:00 PM QBADYPKFDCFNYBLrcopho71/01/2025 12:00 PM EDTBEDSIDE JPKFUUZSevhmnb48/01/2025 12:00 PM EDT BLOOD USIBSMTBMML91/01/2025 9:52 AM EDT BLOOD SHURWIMIHWI51/01/2025 9:52 AM EDT RJDSZKWRSGJKyruomc09/01/2025 8:00 AM EDTBEDSIDE HFMOOQXTvpcmzs84/01/2025 7:51 AM EDT CBC WITH AUTO UGXJIMAJDLTDPhijjkj22/01/2025 5:19 AM EDT YIFLHUQXWONvfmefg23/01/2025 5:19 AM EDT B-TYPE NATRIURETIC PEPTIDEAdd-On05/14/2025 5:19 AM EDT FGRURXVGKTsteido94/01/2025 5:19 AM EDT CK WNFPPDhforsv66/01/2025 5:19 AM EDT IONIZED PBRWCEASkflxdd78/01/2025 5:19 AM EDT LIVER KGDZKSctplpe35/01/2025 5:19 AM EDT BASIC METABOLIC YDQAHPawnelw13/01/2025 5:19 AM EDT OHXUDNIUQOMWomkiyk45/01/2025 4:00 AM GRDTAZGPSRJPBXHvvinnc99/01/2025 12:00 AM EDTBEDSIDE UOIEEZFKumkiax68/31/2025 9:20 PM EDT WUJXJUSLDXGVupwjoh33/31/2025 8:00 PM EDTBEDSIDE HEMQAHXZtmfxxk73/31/2025 4:12 PM EDT PGJLDIRLSLEArmknok23/31/2025 4:00 PM EDTBLOOD GAS, BUEGWVQMXiooern32/31/2025 3:43 PM EDT BEDSIDE KOKAYVTIbxrkij59/31/2025 12:[address] BRAIN WO JXWEQVQO91/31/2025 10:42 AM EDT EXTRA TUBES LAVENDER TOP ON UGWAzhlean92/31/2025 9:01 AM EDT EXTRA MXFYUOxgwngm06/31/2025 9:01 AM EDT CBC WITH AUTO GOSIGPLTAZIIYwhulax18/31/2025 9:01 AM EDT BASIC METABOLIC YOPCHGsgyllf09/31/2025 9:01 AM EDT BEDSIDE QGDOSJJUwilkuv42/31/2025 8:59 AM EDT PQULGUMFMYCNngfkws34/31/2025 8:00 AM EDTBEDSIDE GPBNGPFXsarvlj58/31/2025 7:32 AM EDT LIVER SGVTAKhhbxlc51/31/2025 5:32 AM EDT LAVENDER KGNYuhgikq83/31/2025 5:29 AM EDT RAINBOW XZDQHvlyrdc10/31/2025 5:29 AM EDT RXTEIIPZZWIUzuwvmm30/31/2025 4:00 AM EEGSLCIDHIYMIGDaalyba34/31/2025 12:00 AM EDTBEDSIDE IPZJXYEPppbtzs04/30/2025 8:16 PM EDT BEDSIDE PEROANXSxgihoa33/30/2025 5:00 PM EDT UDPJWOXUKNLYjmpmws87/30/2025 4:00 PM EDTXR CHEST 1 ZKVulcopn01/30/2025 12:57 PM EDT BEDSIDE JSXFHYTBnvkiwq97/30/2025 12:30 PM EDT SMRXWHLTJZMLvjisfz35/30/2025 12:00 PM EDTLACTATE W/ DOXAGHQJAA60/30/2025 11:17 AM EDT BEDSIDE RVRAZFLGfpxaqd09/30/2025 9:21 AM EDT JTSVEVTMNGIYtsjbml31/30/2025 8:00 AM EDTNOCTURNAL OXIMETRY STUDYRoutine 05/12/2025 7:45 AM EDTCBC WITH AUTO QXKZPRSGBCTVOietwic28/30/2025 5:54 AM EDT GMRORYBQIKebnnns11/30/2025 5:54 AM EDT HEMOGLOBIN E1MEdu-Az81/30/2025 5:54 AM EDT BASIC METABOLIC SFYORKzdgext20/30/2025 5:54 AM EDT WSFQCOSAXYDJapwojf56/30/2025 4:00 AM BKVGTVYNWQOMNKKwtzudi43/30/2025 12:00 AM EDTBEDSIDE BYEPYJNWrcdzlb52/29/2025 8:56 PM EDT XHAPVWZPDVAQuacrti94/29/2025 8:00 PM EDTBEDSIDE GXEEMNZDelwffb02/29/2025 5:06 PM EDT BEDSIDE MDVWQRMEwrmufh92/29/2025 2:12 PM EDT BEDSIDE WFFNUUPScjxdoh04/29/2025 1:56 PM EDT DOVHWYTGWKHNvgpqnx35/29/2025 8:00 AM EDTCBC WITH AUTO DIFFERENTIALRoutine 05/11/2025 5:25 AM EDT LDYWISNYLWluxigm89/29/2025 5:25 AM EDT BASIC METABOLIC YZFTDYuaqkbz86/29/2025 5:25 AM EDT ECHO COMPLETE W PLOJBIJOZcmfmtu92/28/2025 9:42 AM EDT BLOOD GAS, JFMXBYDGShrxsgx89/28/2025 9:09 AM EDT VASC VENOUS DUPLEX LOWER WYASMLLSIAhkpmtq55/28/2025 9:02 AM EDT CBC WITH AUTO LXSBOBXSMGJUGnwyebm44/28/2025 5:48 AM EDT NUHUCMYLNLemblik70/28/2025 5:48 AM EDT BASIC METABOLIC DIIAZZydocic19/28/2025 5:48 AM EDT MJUETWUHYHIIuygrnr79/28/2025 4:01 AM TLPMERLIMLXVXPRnhwgrf97/28/2025 12:00 AM EDTPROTEIN CREAT HMQOQFgajlzk10/27/2025 11:14 PM EDT URINE CREATININE,FGLBQYUparzge80/27/2025 11:14 PM EDT SODIUM, URINE, PATBIUOktktpb80/27/2025 11:14 PM EDT RQEDUVWPHHEfpbeyx99/27/2025 11:14 PM EDT URINE CULTURESTAT Add-on05/09/2025 11:14 PM EDT BLOOD GAS, TGBKGZSejokmf29/27/2025 3:14 PM EDT CYTOPLASMIC NEUTROPHILIC AB (ANCA), ECupnqfs04/27/2025 11:53 AM EDT GLOMERULAR BASEMENT MEMBRANE IGG HDPekievw49/27/2025 11:52 AM EDT PROTEINASE 3 AB KC4EEMG8605/09/2025 11:52 AM EDT MYELOPEROXIDASE DNGTHB36 11:52 AM EDT FREE LIGHT IBDUABNhyxyaj64/27/2025 11:52 AM EDT COMPLEMENT PROFILE (C3 AND C4)Ryrxiwh0405/09/2025 11:52 AM EDT IRON AND TIBCAdd-On05/09/2025 11:52 AM EDT VIVEK SCREEN W/ REFLEXSTAT Add-on05/09/2025 11:52 AM EDT PROTEIN ELECTROPHORESIS, XZSPIRkqrvqd65/27/2025 11:52 AM EDT FOLATEAdd-On05/09/2025 11:52 AM EDT FERRITINAdd-On05/09/2025 11:52 AM EDT VITAMIN D20Lyj-No48/27/2025 11:52 AM EDT CK TOTALAdd-On05/09/2025 11:52 AM EDT GTMRYAETVFPPxmcrhf51/27/2025 8:00 AM EDTCBC WITH AUTO DIFFERENTIALRoutine 05/09/2025 5:56 AM EDT DOUBLE STRANDED DNA ABAdd-On05/09/2025 5:56 AM EDT RHEUMATOID FACTORAdd-On05/09/2025 5:56 AM EDT VIVEK SCREEN W/ REFLEXAdd-On05/09/2025 5:56 AM EDT URIC ACIDAdd-On05/09/2025 5:56 AM EDT COMPREHENSIVE METABOLIC EOGMYKahluak47/27/2025 5:56 AM EDT TXQHMAJVYHNEoromvh86/27/2025 4:00 AM VQNTKMNPZWVXVLRivseja24/27/2025 12:00 AM EDTBEDSIDE MBUTXLPVfpnxax24/26/2025 9:36 PM EDT GHRRLCIBMEAJahnhpy27/26/2025 8:40 PM JCDTSKWYMXSZXEWkifkgi72/26/2025 8:40 PM EDT EEKEUCUQOFDSrtefis49/26/2025 8:40 PM PQZWUKOSXRQLZKIzvgxse97/26/2025 8:40 PM EDT TFBOSSBGLPDIbvvllp01/26/2025 8:40 PM CQMOMNJTSQRCTGHgimdyw16/26/2025 8:40 PM EDT PULSE OXIMETRY, HCVJWfqxjzn33/26/2025 8:30 PM EDTdocumented in this encounter Results * (ABNORMAL) Bedside Glucose *Place/Obtain serum glucose if >500 per glucometer. (05/20/2025 8:47 AM EST)ComponentValueRef RangeTest MethodAnalysis Time Performed AtPathologist SignatureBedside Glucose (POC)161(H)65 - 99 mg/dL 05/20/2025 8:53 AM ESTTOSHELTERING ARMS H[facility]PITAL LABORATORYSpecimen (Source)Anatomical Location / LateralityCollection Method / VolumeCollection TimeReceived Time arterial/slitvmgrk95/07/2025 8:47 AM EST05/20/2025 8:53 AM EST Narrative Authorizing ProviderResult TypeResult StatusTaylor J Dimmerling MDPOINT OF CARE TEST ORDERABLESFinal ResultPerforming OrganizationAddressCity/State/ZIP Code Phone Number [facility] [address] [place] [address], * Phosphorus (05/20/2025 5:44 AM EST)ComponentValueRef RangeTest MethodAnalysis TimePerformed AtPathologist SignaturePHOSPHORUS4.62.4 - 4.9 mg/dL05/20/2025 9:38 AM [facility] LABORATORYSpecimen (Source)Anatomical Location / LateralityCollection Method / VolumeCollection TimeReceived Time BloodVenous blood / UnknownVenipuncture / Kimwqsy2505/20/2025 5:44 AM EST 05/20/2025 9:23 AM EST Narrative Authorizing ProviderResult TypeResult StatusRamy Lee BARRY BLOOD ORDERABLES Final ResultPerforming OrganizationAddressCity/State/ZIP CodePhone Number [facility] [address] [place] [address], * Magnesium (05/20/2025 5:44 AM EST)ComponentValueRef RangeTest MethodAnalysis TimePerformed AtPathologist SignatureMAGNESIUM2.61.8 - 2.6 mg/dL05/20/2025 9:38 AM [facility] LABORATORYSpecimen (Source)Anatomical Location / LateralityCollection Method / VolumeCollection TimeReceived Time BloodVenous blood / UnknownVenipuncture / Rdggcts1405/20/2025 5:44 AM EST 05/20/2025 9:23 AM EST Narrative Authorizing ProviderResult TypeResult StatusRamy Lee BARRY BLOOD ORDERABLES Final ResultPerforming OrganizationAddressty/State/ZIP CodePhone Number [facility] [address] [place] [address], * (ABNORMAL) Basic Metabolic Panel (05/20/2025 5:44 AM EST)ComponentValueRef RangeTest MethodAnalysis TimePerformed AtPathologist HctttxfknXDAQQG045966 - 146 mmol/L107/20/2024 9:38 AM [facility] LABORATORYPOTASSIUM 3.83.5 - 5.0 mmol/L107/20/2024 9:38 AM [facility] TWZSBMRW49(L)98 - 109 mmol/L107/20/2024 9:38 AM [facility] LABORATORYCARBON NXBNNOB0861 - 32 mmol/L107/20/2024 9:38 AM [facility] LABORATORYANION NTR833 - 15 mmol/L107/20/2024 9:38 AM [facility] LABORATORYBLOOD UREA MWWYFIBM49(H)5 - 27 mg/dL05/20/2025 9:38 AM [facility] LABORATORYCREATININE1.59(H)0.40 - 1.00 mg/dL05/20/2025 9:38 AM [facility] LABORATORYComment:METHOD TRACEABLE TO IDMS PVKFAPJOZVVJKNI455(H)65 - 99 mg/dL05/20/2025 9:38 AM EST [facility]ATORYCALCIUM9.48.5 - 10.5 mg/dL05/20/2025 9:38 AM [facility]ORYEGFR Non-Race Daantrmde20(L)>=60 ml/min/1.73sq.m107/20/2024 9:38 AM [facility] Comment: Reported eGFR is based on the CKD-EPI 2020 equation that does not use a race coefficient. Specimen (Source)Anatomical Location / LateralityCollection Method / Volume Collection TimeReceived TimeBloodVenous blood / UnknownVenipuncture / Unknown 05/20/2025 5:44 AM EST05/20/2025 9:23 AM EST Narrative Authorizing ProviderResult TypeResult StatusRamy Lee BARRY BLOOD ORDERABLES Final ResultPerforming OrganizationAddressCity/State/ZIP CodePhone Number [facility] [address] [place] [address], * (ABNORMAL) CBC auto differential (05/20/2025 5:44 AM EST)ComponentValueRef RangeTest MethodAnalysis TimePerformed AtPathologist SignatureWBC8.64 - 11 X10^9/L107/20/2024 6:26 AM [facility] LABORATORYRBC Count3.04 (L)3.8 - 5.2 X10^12/L107/20/2024 6:26 AM [facility] Hemoglobin9.6(L)11.7 - 15.5 g/dL05/20/2025 6:26 AM [facility] KTXMVPKGISWamrpumohv76.8(L)35 - 47 %05/20/2025 6:26 AM [facility] XWFETWWDPNCYL0233 - 100 fL05/20/2025 6:26 AM [facility] LDSMOPKGEPSLW57.627 - 34 pg05/20/2025 6:26 AM [facility] DWVCILSNGYIKRN11.332 - 36 g/dL05/20/2025 6:26 AM [facility] PALWFZSHAAZYF20.3(H)11.5 - 15 %05/20/2025 6:26 AM [facility] LABORATORYPlatelet Ytnkp984908 - 450 X10^9/L107/20/2024 6:26 AM [facility] LABORATORYMPV9.57 - 12 fL05/20/2025 6:26 AM [facility]ORATORYNeutrophils %62.5%05/20/2025 6:26 AM [facility]ORATORYLymphocytes %22.3%05/20/2025 6:26 AM [facility] LABORATORYMonocytes %9.8%05/20/2025 6:26 AM [facility]ORATORYEosinophils %4.8%05/20/2025 6:26 AM [facility]ORATORYBasophils %0.6%05/20/2025 6:26 AM [facility] LABORATORYNeutrophils Absolute (A)5.41.5 - 6.6 X10^9/L 05/20/2025 6:26 AM [facility] LABORATORYLymphocytes Absolute 1.91.0 - 3.5 X10^9/L107/20/2024 6:26 AM [facility] Monocytes Absolute0.80.0 - 0.9 X10^9/L11/01/2025 6:26 AM [facility] LABORATORYEosinophils Absolute0.40.0 - 0.4 X10^9/L107/20/2024 6:26 AM [facility] LABORATORYBasophils Absolute0.10.0 - 0.2 X10^9/L 05/20/2025 6:26 AM [facility] LABORATORYDifferential Type AUTOMATED CJQXGDFTVAWN39/07/2025 6:26 AM [facility] LABORATORYSpecimen (Source)Anatomical Location / LateralityCollection Method / VolumeCollection TimeReceived TimeBloodVenous blood / UnknownVenipuncture / Wpnuune0605/20/2025 5:44 AM EST05/20/2025 6:08 AM EST Narrative Authorizing ProviderResult TypeResult StatusAmhossein Drummond MDLAB BLOOD ORDERABLES Final ResultPerforming OrganizationAddressCity/State/ZIP CodePhone Number [facility] [address] [place] [address], [place] [phone] * (ABNORMAL) Bedside Glucose *Place/Obtain serum glucose if >500 per glucometer. (05/19/2025 9:04 PM EST)ComponentValueRef RangeTest MethodAnalysis Time Performed AtPathologist SignatureBedside Glucose (POC)221(H)65 - 99 mg/dL 05/19/2025 9:06 PM [facility] LABORATORYSpecimen (Source)Anatomical Location / LateralityCollection Method / VolumeCollection TimeReceived Time arterial//06/2025 9:04 PM EST05/19/2025 9:06 PM EST Narrative Authorizing ProviderResult TypeResult StatusJanel Al MDPOINT OF CARE TEST ORDERABLESFinal ResultPerforming OrganizationAddressCity/State/ZIP Code Phone Number [facility] [address] [place] [address], [place] * (ABNORMAL) Bedside Glucose *Place/Obtain serum glucose if >500 per glucometer. (05/19/2025 4:07 PM EST)ComponentValueRef RangeTest MethodAnalysis Time Performed AtPathologist SignatureBedside Glucose (POC)237(H)65 - 99 mg/dL 05/19/2025 4:12 PM [facility] LABORATORYSpecimen (Source)Anatomical Location / LateralityCollection Method / VolumeCollection TimeReceived Time arterial/otooizcbv10/06/2025 4:07 PM EST05/19/2025 4:12 PM EST Narrative Authorizing ProviderResult TypeResult StatusJanel Al [facility] CENTEROINT OF CARE TEST ORDERABLESFinal ResultPerforming OrganizationAddressCity/State/ZIP Code Phone Number [facility] [address] [place] [address], [place] * X-ray abdomen ap 1 view (05/19/2025 3:28 PM EST)Anatomical RegionLaterality ModalityBody, AbdomenN/AComputed RadiographySpecimen (Source)Anatomical Location / LateralityCollection Method / VolumeCollection TimeReceived Time 05/19/2025 3:34 PM EST Narrative 05/19/2025 3:38 PM EST CLINICAL HISTORY: Constipation Comparison: ??None Views: ??1 view FINDINGS: * ??The bowel gas pattern is nonobstructive. No suspicious calcification. No free air. Mild amount retained fecal content. * ??Bilateral ureterostomy tubes. The left tube is markedly kinked and coiled in the most proximal aspect. This is likely nonfunctional 2. Left-sided percutaneous nephrostomy tube present. Vascular stent in the right iliac. IMPRESSION: * ?? As above Finalized by Ross Garza MD on 05/19/2025 3:38 PM Procedure Note Ross Garza MD - 05/19/2025 CLINICAL HISTORY: Constipation Comparison: None Views: 1 view FINDINGS: * The bowel gas pattern is nonobstructive. No suspicious calcification.No free air. Mild amount retained fecal content. * Bilateral ureterostomy tubes. The left tube is markedly kinked andcoiled in the most proximal aspect. This is likely nonfunctional 2.Left-sided percutaneous nephrostomy tube present. Vascular stent in theright iliac. IMPRESSION: * As above Finalized by Ross Garza MD on 05/19/2025 3:38 PM Authorizing ProviderResult TypeResult StatusRuizylalbina Al MDIMG DIAGNOSTIC IMAGING ORDERABLESFinal Result * (ABNORMAL) Bedside Glucose *Place/Obtain serum glucose if >500 per glucometer. (05/19/2025 12:21PM EST)ComponentValueRef RangeTest MethodAnalysis Time Performed AtPathologist SignatureBedside Glucose (POC)163(H)65 - 99 mg/dL 05/19/2025 12:26 PM [facility] LABORATORYSpecimen (Source)Anatomical Location / LateralityCollection Method / VolumeCollection TimeReceived Time arterial//06/2025 12:21 PM EST05/19/2025 12:26 PM EST Narrative Authorizing ProviderResult TypeResult StatusTaylor Amada Al MDPOINT OF CARE TEST ORDERABLESFinal ResultPerforming OrganizationAddressty/State/ZIP Code Phone Number [facility] [address] [place] [address], [place] * (ABNORMAL) Bedside Glucose *Place/Obtain serum glucose if >500 per glucometer. (05/19/2025 8:47 AM EST)ComponentValueRef RangeTest MethodAnalysis Time Performed AtPathologist SignatureBedside Glucose (POC)125(H)65 - 99 mg/dL 05/19/2025 8:53 AM [facility] LABORATORYSpecimen (Source)Anatomical Location / LateralityCollection Method / VolumeCollection TimeReceived Time arterial//06/2025 8:47 AM EST05/19/2025 8:53 AM EST Narrative Authorizing ProviderResult TypeResult StatusTaylalbina Al MDPOINT OF CARE TEST ORDERABLESFinal ResultPerforming OrganizationAddressTr[facility]/State/ZIP Code Phone Number [facility] [address] [place] [address], [place] * (ABNORMAL) CK Total (05/19/2025 6:12 AM EST)ComponentValueRef RangeTest Method Analysis TimePerformed AtPathologist SixtfsbmxHMG66(L)24 - 170 U/L107/20/2024 10:55 AM [facility] LABORATORYSpecimen (Source)Anatomical Location / LateralityCollection Method / VolumeCollection TimeReceived Time BloodVenous blood / UnknownCentral Line / Wrzxegk7405/19/2025 6:12 AM EST 05/19/2025 6:23 AM EST Narrative Authorizing ProviderResult TypeResult StatusKatherine Nestor Damon ACADEMIC HOSPITALIST-CNPLAB BLOOD ORDERABLESFinal ResultPerforming OrganizationAddressCity/State/ZIP CodePhone Number [facility] [address] [place] [address], * Phosphorus (05/19/2025 6:12 AM EST)ComponentValueRef RangeTest MethodAnalysis TimePerformed AtPathologist SignaturePHOSPHORUS4.32.4 - 4.9 mg/dL05/19/2025 6:55 AM [facility] LABORATORYSpecimen (Source)Anatomical Location / LateralityCollection Method / VolumeCollection TimeReceived Time BloodVenous blood / UnknownCentral Line / Yozijoo5905/19/2025 6:12 AM EST 05/19/2025 6:23 AM EST Narrative Authorizing ProviderResult TypeResult StatusRamy Lee Enriquez MDLAB BLOOD ORDERABLES Final ResultPerforming OrganizationAddressCity/State/ZIP CodePhone Number [address] [place] [address], * Magnesium (05/19/2025 6:12 AM EST)ComponentValueRef RangeTest MethodAnalysis TimePerformed AtPathologist SignatureMAGNESIUM2.41.8 - 2.6 mg/dL05/19/2025 6:55 AM [facility] LABORATORYSpecimen (Source)Anatomical Location / LateralityCollection Method / VolumeCollection TimeReceived Time BloodVenous blood / UnknownCentral Line / Exzzayt5705/19/2025 6:12 AM EST 05/19/2025 6:23 AM EST Narrative Authorizing ProviderResult TypeResult StatusRamy Lee Enriquez MDLAB BLOOD ORDERABLES Final ResultPerforming OrganizationAddressCity/State/ZIP CodePhone Number [address] [place] [address], * (ABNORMAL) Basic Metabolic Panel (05/19/2025 6:12 AM EST)ComponentValueRef RangeTest MethodAnalysis TimePerformed AtPathologist ZquqsnoeqJHGZZA782854 - 146 mmol/L107/19/2024 6:55 AM [facility] LABORATORYPOTASSIUM 3.93.5 - 5.0 mmol/L107/19/2024 6:55 AM [facility] HXUBYAHA33(L)98 - 109 mmol/L107/19/2024 6:55 AM [facility] LABORATORYCARBON DEADIMX65(H)22 - 32 mmol/L107/19/2024 6:55 AM [facility] LABORATORYANION GAP95 - 15 mmol/L107/19/2024 6:55 AM EST [facility]ATORYBLOOD UREA CLEPEDOP47(H)5 - 27 mg/dL 05/19/2025 6:55 AM [facility] LABORATORYCREATININE1.56(H)0.40 - 1.00 mg/dL05/19/2025 6:55 AM [facility]ORATORYComment: METHOD TRACEABLE TO IDMS JSQHKDOCALRFGFE470(H)65 - 99 mg/dL05/19/2025 6:55 AM [facility] LABORATORYCALCIUM9.28.5 - 10.5 mg/dL05/19/2025 6:55 AM [facility]ORYEGFR Non-Race Mueykuijc11(L)>=60 ml/min/1.73sq.m107/19/2024 6:55 AM [facility] Comment: Reported eGFR is based on the CKD-EPI 2020 equation that does not use a race coefficient. Specimen (Source)Anatomical Location / LateralityCollection Method / Volume Collection TimeReceived TimeBloodVenous blood / UnknownCentral Line / Unknown 05/19/2025 6:12 AM EST05/19/2025 6:23 AM EST Narrative Authorizing ProviderResult TypeResult StatusRamy Lee BARRY BLOOD ORDERABLES Final ResultPerforming OrganizationAddressCity/State/ZIP CodePhone Number [facility] [address] [place] [address], * (ABNORMAL) CBC auto differential (05/19/2025 6:12 AM EST)ComponentValueRef RangeTest MethodAnalysis TimePerformed AtPathologist SignatureWBC8.74 - 11 X10^9/L107/19/2024 6:38 AM [facility] LABORATORYRBC Count3.09 (L)3.8 - 5.2 X10^12/L107/19/2024 6:38 AM [facility] Hemoglobin9.7(L)11.7 - 15.5 g/dL05/19/2025 6:38 AM [facility] IEYLWJIETGSdwrdfhnvp85.0(L)35 - 47 %05/19/2025 6:38 AM [facility] FQKASWDBSMZIR1081 - 100 fL05/19/2025 6:38 AM [facility] FTUCAEJYTKIRX27.527 - 34 pg05/19/2025 6:38 AM [facility] EXNNJECFSPJZBB64.532 - 36 g/dL05/19/2025 6:38 AM [facility] REHDRQPDQCBYB74.6(H)11.5 - 15 %05/19/2025 6:38 AM [facility] LABORATORYPlatelet Kdysj018865 - 450 X10^9/L107/19/2024 6:38 AM [facility] LABORATORYMPV9.37 - 12 fL05/19/2025 6:38 AM [facility] LABORATORYNeutrophils %62.1%05/19/2025 6:38 AM [facility] LABORATORYLymphocytes %25.4%05/19/2025 6:38 AM [facility] LABORATORYMonocytes %8.7%05/19/2025 6:38 AM [facility] LABORATORYEosinophils %3.3%05/19/2025 6:38 AM [facility] LABORATORYBasophils %0.5%05/19/2025 6:38 AM [facility] LABORATORYNeutrophils Absolute (A)5.41.5 - 6.6 X10^9/L 05/19/2025 6:38 AM [facility] LABORATORYLymphocytes Absolute 2.21.0 - 3.5 X10^9/L107/19/2024 6:38 AM [facility] Monocytes Absolute0.80.0 - 0.9 X10^9/L107/19/2024 6:38 AM [facility] LABORATORYEosinophils Absolute0.30.0 - 0.4 X10^9/L107/19/2024 6:38 AM [facility] LABORATORYBasophils Absolute0.00.0 - 0.2 X10^9/L 05/19/2025 6:38 AM [facility] LABORATORYDifferential Type AUTOMATED IFCFVETVDOCQ09/06/2025 6:38 AM [facility] LABORATORYSpecimen (Source)Anatomical Location / LateralityCollection Method / VolumeCollection TimeReceived TimeBloodVenous blood / UnknownCentral Line / Mxyysqp0305/19/2025 6:12 AM EST05/19/2025 6:23 AM EST Narrative Authorizing ProviderResult TypeResult StatusAmhossein BARRY BLOOD ORDERABLES Final ResultPerforming OrganizationAddressCity/State/ZIP CodePhone Number [facility] [address] [place] [address], * (ABNORMAL) Blood Gas, Arterial (05/19/2025 12:12 AM EST)ComponentValueRef RangeTest MethodAnalysis TimePerformed AtPathologist SignatureSample type GKPTPRWK37/06/2025 12:14 AM [facility] LABORATORYpH, Arterial7.386 7.350 - 7.4287205/19/2025 12:14 AM [facility] LABORATORYpCO2, Arterial 64.9(H)35.0 - 45.0 mmHg05/19/2025 12:14 AM [facility] LABORATORYPO2, Tzhlkqrp47(L)80 - 100 mmHg05/19/2025 12:14 AM [facility] Base, Owunvp58.0(H)0.0 - 2.0 mmol/L107/19/2024 12:14 AM [facility] LABORATORYHCO3, Kddneleg58.9(H)22.0 - 26.0 mmol/L107/19/2024 12:14 AM [facility]%O2 Saturation, Dlqtbfbq95.0(L)>90.0 %05/19/2025 12:14 AM [facility] LABORATORYAllen's testN/A107/19/2024 12:14 AM [facility] KKMEIIJIYDMFR719%05/19/2025 12:14 AM [facility] Sample siteL Brach05/19/2025 12:14 AM [facility] LABORATORYInsp. O2 conc.28%05/19/2025 12:14 AM [facility] LABORATORYSource Of OxygenRoom Air05/19/2025 12:14 AM [facility] LABORATORYSpecimen (Source) Anatomical Location / LateralityCollection Method / VolumeCollection Time Received Timearterial (Blood, Arterial)05/19/2025 12:12 AM EST05/19/2025 12:14 AM EST Narrative Authorizing ProviderResult TypeResult StatusTaylalbina Al MDLAB BLOOD ORDERABLESFinal ResultPerforming OrganizationAddressty/State/ZIP CodePhone Number [facility] [address] [place] [address], [place] * (ABNORMAL) Bedside Glucose *Place/Obtain serum glucose if >500 per glucometer. (05/18/2025 9:44 PM EST)ComponentValueRef RangeTest MethodAnalysis Time Performed AtPathologist SignatureBedside Glucose (POC)239(H)65 - 99 mg/dL 05/18/2025 9:54 PM [facility] LABORATORYSpecimen (Source)Anatomical Location / LateralityCollection Method / VolumeCollection TimeReceived Time arterial/vrzqaacom86/05/2025 9:44 PM EST05/18/2025 9:54 PM EST Narrative Authorizing ProviderResult TypeResult StatusTaylalbina Al MDPOINT OF CARE TEST ORDERABLESFinal ResultPerforming OrganizationAddressty/State/ZIP Code Phone Number [facility] [address] [place] [address], [place] * (ABNORMAL) Bedside Glucose *Place/Obtain serum glucose if >500 per glucometer. (05/18/2025 4:26 PM EST)ComponentValueRef RangeTest MethodAnalysis Time Performed AtPathologist SignatureBedside Glucose (POC)254(H)65 - 99 mg/dL 05/18/2025 4:32 PM [facility] LABORATORYSpecimen (Source)Anatomical Location / LateralityCollection Method / VolumeCollection TimeReceived Time arterial/shpuiqtgf88/05/2025 4:26 PM EST05/18/2025 4:31 PM EST Narrative Authorizing ProviderResult TypeResult StatusTaylor Amada Al MDPOINT OF CARE TEST ORDERABLESFinal ResultPerforming OrganizationAddressCity/State/ZIP Code Phone Number [facility] [address] [place] [place] [address], * X-ray chest 1 view (05/18/2025 4:16 PM EST)Anatomical RegionLaterality ModalityBody, ChestN/AComputed RadiographySpecimen (Source)Anatomical Location / LateralityCollection Method / VolumeCollection TimeReceived Time05/18/2025 4:24 PM EST Narrative 05/18/2025 4:30 PM EST XR CHEST 1 VW CLINICAL INDICATION: Airspace disease. COMPARISON: Radiographs 05/15/2025. IMPRESSION: 1. Hypoventilatory changes with slight interstitial edema, additional more vague airspace disease left lung base. Small pleural effusions more on the left. 2. Unchanged cardiomediastinal silhouette. Finalized by Bharat Tyler MD on 05/18/2025 4:30 PM Procedure Note Bharat Tyler MD - 05/18/2025 XR CHEST 1 VW CLINICAL INDICATION: Airspace disease. COMPARISON: Radiographs 05/15/2025. IMPRESSION: 1. Hypoventilatory changes with slight interstitial edema, additional morevague airspace disease left lung base. Small pleural effusions more on theleft. 2. Unchanged cardiomediastinal silhouette. Finalized by Bharat Tyler MD on 05/18/2025 4:30 PM Authorizing ProviderResult TypeResult Ileana Mcnair MDIMG DIAGNOSTIC IMAGING ORDERABLESFinal Result * Potassium (05/18/2025 1:36 PM EST)ComponentValueRef RangeTest MethodAnalysis TimePerformed AtPathologist SignaturePOTASSIUM4.33.5 - 5.0 mmol/L107/18/2024 2:40 PM [facility] LABORATORYSpecimen (Source)Anatomical Location / LateralityCollection Method / VolumeCollection TimeReceived Time BloodVenous blood / Qskzrvb5405/18/2025 1:36 PM EST05/18/2025 1:46 PM EST Narrative Authorizing ProviderResult TypeResult StatusTaylalbina Al NELAB BLOOD ORDERABLESFinal ResultPerforming OrganizationAddressCity/State/ZIP CodePhone Number [facility] [address] [place] [address], [place] [phone] * (ABNORMAL) Bedside Glucose *Place/Obtain serum glucose if >500 per glucometer. (05/18/2025 12:48PM EST)ComponentValueRef RangeTest MethodAnalysis Time Performed AtPathologist SignatureBedside Glucose (POC)255(H)65 - 99 mg/dL 05/18/2025 12:49 PM [facility] LABORATORYSpecimen (Source)Anatomical Location / LateralityCollection Method / VolumeCollection TimeReceived Time arterial/tklmgfuyj01/05/2025 12:48 PM EST05/18/2025 12:49 PM EST Narrative Authorizing ProviderResult TypeResult StatusRuizylalbina Al MDPOINT OF CARE TEST ORDERABLESFinal ResultPerforming OrganizationAddressty/State/ZIP Code Phone Number [facility] [address] [place] [address], * (ABNORMAL) Bedside Glucose *Place/Obtain serum glucose if >500 per glucometer. (05/18/2025 9:09 AM EST)ComponentValueRef RangeTest MethodAnalysis Time Performed AtPathologist SignatureBedside Glucose (POC)145(H)65 - 99 mg/dL 05/18/2025 9:14 AM [facility] LABORATORYSpecimen (Source)Anatomical Location / LateralityCollection Method / VolumeCollection TimeReceived Time arterial/fgrakypla79/05/2025 9:09 AM EST05/18/2025 9:14 AM EST Narrative Authorizing ProviderResult TypeResult StatusRuizylalbina Al MDPOINT OF CARE TEST ORDERABLESFinal ResultPerforming OrganizationAddressty/State/ZIP Code Phone Number [facility] [address] [place] [address], * (ABNORMAL) Bedside Glucose *Place/Obtain serum glucose if >500 per glucometer. (05/18/2025 8:27 AM EST)ComponentValueRef RangeTest MethodAnalysis Time Performed AtPathologist SignatureBedside Glucose (POC)161(H)65 - 99 mg/dL 05/18/2025 12:23 PM [facility] LABORATORYSpecimen (Source)Anatomical Location / LateralityCollection Method / VolumeCollection TimeReceived Time arterial/vcdbyigdn23/05/2025 8:27 AM EST05/18/2025 12:23 PM EST Narrative Authorizing ProviderResult TypeResult StatusTaylor Amada Al MDPOINT OF CARE TEST ORDERABLESFinal ResultPerforming OrganizationAddressCity/State/ZIP Code Phone Number [facility] [address] [place] [address], [place] * Phosphorus (05/18/2025 5:37 AM EST)ComponentValueRef RangeTest MethodAnalysis TimePerformed AtPathologist SignaturePHOSPHORUS3.62.4 - 4.9 mg/dL05/18/2025 6:41 AM [facility] LABORATORYSpecimen (Source)Anatomical Location / LateralityCollection Method / VolumeCollection TimeReceived Time BloodVenous blood / UnknownVenipuncture / Amcnknt5305/18/2025 5:37 AM EST 05/18/2025 6:06 AM EST Narrative Authorizing ProviderResult TypeResult StatusRamy Lee BARRY BLOOD ORDERABLES Final ResultPerforming OrganizationAddressCity/State/ZIP CodePhone Number [facility] [address] [place] [address], [place] [phone] * Magnesium (05/18/2025 5:37 AM EST)ComponentValueRef RangeTest MethodAnalysis TimePerformed AtPathologist SignatureMAGNESIUM2.31.8 - 2.6 mg/dL05/18/2025 6:41 AM [facility] LABORATORYSpecimen (Source)Anatomical Location / LateralityCollection Method / VolumeCollection TimeReceived Time BloodVenous blood / UnknownVenipuncture / Gjkobti0705/18/2025 5:37 AM EST 05/18/2025 6:06 AM EST Narrative Authorizing ProviderResult TypeResult StatusRamy Lee BARRY BLOOD ORDERABLES Final ResultPerforming OrganizationAddressCity/State/ZIP CodePhone Number [facility] [address] [place] [address], * (ABNORMAL) Basic Metabolic Panel (05/18/2025 5:37 AM EST)ComponentValueRef RangeTest MethodAnalysis TimePerformed AtPathologist MnbisrbbzKRKJTL218009 - 146 mmol/L107/18/2024 6:41 AM [facility] LABORATORYPOTASSIUM 3.73.5 - 5.0 mmol/L107/18/2024 6:41 AM [facility] RKPQBGIW54(L)98 - 109 mmol/L107/18/2024 6:41 AM [facility] LABORATORYCARBON HMNTBFA47(H)22 - 32 mmol/07/18/2024 6:41 AM [facility] LABORATORYANION GAP95 - 15 mmol/07/18/2024 6:41 AM EST [facility] LABORATORYBLOOD UREA QAIKOJCF97(H)5 - 27 mg/dL 05/18/2025 6:41 AM [facility] LABORATORYCREATININE1.63(H)0.40 - 1.00 mg/dL05/18/2025 6:41 AM [facility] LABORATORYComment: METHOD TRACEABLE TO IDMS RPAZFZBOXQNSVQP4735 - 99 mg/dL05/18/2025 6:41 AM [facility] LABORATORYCALCIUM9.58.5 - 10.5 mg/dL05/18/2025 6:41 AM [facility] LABORATORYEGFR Non-Race Uaxtvwdxn15(L)>=60 ml/min/1.73sq.m107/18/2024 6:41 AM [facility] Comment: Reported eGFR is based on the CKD-EPI 2020 equation that does not use a race coefficient. Specimen (Source)Anatomical Location / LateralityCollection Method / Volume Collection TimeReceived TimeBloodVenous blood / UnknownVenipuncture / Unknown 05/18/2025 5:37 AM EST05/18/2025 6:06 AM EST Narrative Authorizing ProviderResult TypeResult StatusRamy Lee BARRY BLOOD ORDERABLES Final ResultPerforming OrganizationAddressCity/State/ZIP CodePhone Number [facility] [address] [place] [address], [place] [phone] * (ABNORMAL) CBC auto differential (05/18/2025 5:37 AM EST)ComponentValueRef RangeTest MethodAnalysis TimePerformed AtPathologist SignatureWBC8.64 - 11 X10^9/L107/18/2024 6:22 AM [facility] LABORATORYRBC Count3.16 (L)3.8 - 5.2 X10^12/L107/18/2024 6:22 AM [facility] Hemoglobin9.9(L)11.7 - 15.5 g/dL05/18/2025 6:22 AM [facility] WXCNVBUCEOMlultyodyl60.6(L)35 - 47 %05/18/2025 6:22 AM [facility] CWMVRYCDVGCVC9803 - 100 fL05/18/2025 6:22 AM [facility] GDXIVRNYSEUMN57.227 - 34 pg05/18/2025 6:22 AM [facility] HCFFLTSCXWGPPW45.232 - 36 g/dL05/18/2025 6:22 AM [facility] VNVFFPASAKKMZ64.9(H)11.5 - 15 %05/18/2025 6:22 AM [facility] LABORATORYPlatelet Ulyog184121 - 450 X10^9/L107/18/2024 6:22 AM [facility] LABORATORYMPV9.57 - 12 fL05/18/2025 6:22 AM [facility] LABORATORYNeutrophils %64.3%05/18/2025 6:22 AM [facility] LABORATORYLymphocytes %23.2%05/18/2025 6:22 AM [facility] LABORATORYMonocytes %9.4%05/18/2025 6:22 AM [facility] LABORATORYEosinophils %2.2%05/18/2025 6:22 AM [facility] LABORATORYBasophils %0.9%05/18/2025 6:22 AM [facility] LABORATORYNeutrophils Absolute (A)5.51.5 - 6.6 X10^9/L 05/18/2025 6:22 AM [facility] LABORATORYLymphocytes Absolute 2.01.0 - 3.5 X10^9/L107/18/2024 6:22 AM [facility] Monocytes Absolute0.80.0 - 0.9 X10^9/L107/18/2024 6:22 AM [facility] LABORATORYEosinophils Absolute0.20.0 - 0.4 X10^9/L107/18/2024 6:22 AM [facility] LABORATORYBasophils Absolute0.10.0 - 0.2 X10^9/L 05/18/2025 6:22 AM [facility] LABORATORYDifferential Type AUTOMATED QXGWMKNYAIFQ90/05/2025 6:22 AM [facility] LABORATORYSpecimen (Source)Anatomical Location / LateralityCollection Method / VolumeCollection TimeReceived TimeBloodVenous blood / UnknownVenipuncture / Pkywiwj4905/18/2025 5:37 AM EST05/18/2025 6:06 AM EST Narrative Authorizing ProviderResult TypeResult StatusAmhossein BARRY BLOOD ORDERABLES Final ResultPerforming OrganizationAddressCity/State/ZIP CodePhone Number [facility] [address] [place] [address], [place] [phone] * (ABNORMAL) Bedside Glucose *Place/Obtain serum glucose if >500 per glucometer. (05/17/2025 8:35 PM EST)ComponentValueRef RangeTest MethodAnalysis Time Performed AtPathologist SignatureBedside Glucose (POC)198(H)65 - 99 mg/dL 05/17/2025 8:38 PM [facility] LABORATORYSpecimen (Source)Anatomical Location / LateralityCollection Method / VolumeCollection TimeReceived Time arterial/dakpfszxf03/04/2025 8:35 PM EST05/17/2025 8:38 PM EST Narrative Authorizing ProviderResult TypeResult StatusTaylalbina MATHEWOINT OF CARE TEST ORDERABLESFinal ResultPerforming OrganizationAddressty/State/ZIP Code Phone Number [facility] [address] [place] [address], [place] * (ABNORMAL) Bedside Glucose *Place/Obtain serum glucose if >500 per glucometer. (05/17/2025 5:02 PM EST)ComponentValueRef RangeTest MethodAnalysis Time Performed AtPathologist SignatureBedside Glucose (POC)200(H)65 - 99 mg/dL 05/17/2025 5:05 PM [facility] LABORATORYSpecimen (Source)Anatomical Location / LateralityCollection Method / VolumeCollection TimeReceived Time arterial/qjibzixwf20/04/2025 5:02 PM EST05/17/2025 5:05 PM EST Narrative Authorizing ProviderResult TypeResult StatusRuizylalbina Al MDPOINT OF CARE TEST ORDERABLESFinal ResultPerforming OrganizationAddressCity/State/ZIP Code Phone Number [facility] [address] [place] [address], [place] * Potassium (05/17/2025 1:42 PM EST)ComponentValueRef RangeTest MethodAnalysis TimePerformed AtPathologist SignaturePOTASSIUM4.33.5 - 5.0 mmol/L107/17/2024 2:59 PM [facility] LABORATORYSpecimen (Source)Anatomical Location / LateralityCollection Method / VolumeCollection TimeReceived Time BloodVenous blood / UnknownVenipuncture / Gqkolmd6105/17/2025 1:42 PM EST 05/17/2025 2:08 PM EST Narrative Authorizing ProviderResult TypeResult StatusTaylalbina Al [facility] BLOOD ORDERABLESFinal ResultPerforming OrganizationAddressty/State/ZIP CodePhone Number [facility] [address] [place] [address], [place] [phone] * (ABNORMAL) Bedside Glucose *Place/Obtain serum glucose if >500 per glucometer. (05/17/2025 11:52AM EST)ComponentValueRef RangeTest MethodAnalysis Time Performed AtPathologist SignatureBedside Glucose (POC)264(H)65 - 99 mg/dL 05/17/2025 11:55 AM [facility] LABORATORYSpecimen (Source)Anatomical Location / LateralityCollection Method / VolumeCollection TimeReceived Time arterial/rbchdcosd00/04/2025 11:52 AM EST05/17/2025 11:55 AM EST Narrative Authorizing ProviderResult TypeResult StatusTaylalbina Al MDPOINT OF CARE TEST ORDERABLESFinal ResultPerforming OrganizationAddressCity/State/ZIP Code Phone Number [facility] [address] [facility] [place] [address], [place] * (ABNORMAL) Bedside Glucose *Place/Obtain serum glucose if >500 per glucometer. (05/17/2025 7:50 AM EST)ComponentValueRef RangeTest MethodAnalysis Time Performed AtPathologist SignatureBedside Glucose (POC)145(H)65 - 99 mg/dL 05/17/2025 7:53 AM [facility] LABORATORYSpecimen (Source)Anatomical Location / LateralityCollection Method / VolumeCollection TimeReceived Time arterial/fpogqfcur49/04/2025 7:50 AM EST05/17/2025 7:53 AM EST Narrative Authorizing ProviderResult TypeResult StatusTaylalbina Al MDPOINT OF CARE TEST ORDERABLESFinal ResultPerforming OrganizationAddressty/State/ZIP Code Phone Number [facility] [address] [place] [address], [place] * Phosphorus (05/17/2025 5:39 AM EST)ComponentValueRef RangeTest MethodAnalysis TimePerformed AtPathologist SignaturePHOSPHORUS3.42.4 - 4.9 mg/dL05/17/2025 7:06 AM [facility] LABORATORYSpecimen (Source)Anatomical Location / LateralityCollection Method / VolumeCollection TimeReceived Time BloodVenous blood / UnknownVenipuncture / Vnufizk8505/17/2025 5:39 AM EST 05/17/2025 6:24 AM EST Narrative Authorizing ProviderResult TypeResult StatusGustavo BARRY BLOOD ORDERABLES Final ResultPerforming OrganizationAddressCity/State/ZIP CodePhone Number [facility] [address] [place] [address], * Magnesium (05/17/2025 5:39 AM EST)ComponentValueRef RangeTest MethodAnalysis TimePerformed AtPathologist SignatureMAGNESIUM2.31.8 - 2.6 mg/dL05/17/2025 7:06 AM [facility] LABORATORYSpecimen (Source)Anatomical Location / LateralityCollection Method / VolumeCollection TimeReceived Time BloodVenous blood / UnknownVenipuncture / Mcqbozy5005/17/2025 5:39 AM EST 05/17/2025 6:24 AM EST Narrative Authorizing ProviderResult TypeResult StatusRamy Lee BARRY BLOOD ORDERABLES Final ResultPerforming OrganizationAddressCity/State/ZIP CodePhone Number [facility] [address] [place] [address], * (ABNORMAL) Basic Metabolic Panel (05/17/2025 5:39 AM EST)ComponentValueRef RangeTest MethodAnalysis TimePerformed AtPathologist JtisjfvjfCYMVNZ695025 - 146 mmol/L107/17/2024 7:05 AM [facility] LABORATORYPOTASSIUM 3.3(L)3.5 - 5.0 mmol/L107/17/2024 7:05 AM [facility] TWTGQMHERABZKUOXQP60(L)98 - 109 mmol/L107/17/2024 7:05 AM [facility] LABORATORYCARBON DNHXISP77(H)22 - 32 mmol/L107/17/2024 7:05 AM [facility] LABORATORYANION QUZ485 - 15 mmol/L107/17/2024 7:05 AM [facility] LABORATORYBLOOD UREA TVUGPWWL51(H)5 - 27 mg/dL 05/17/2025 7:05 AM [facility] LABORATORYCREATININE1.49(H)0.40 - 1.00 mg/dL05/17/2025 7:05 AM [facility] LABORATORYComment: METHOD TRACEABLE TO IDMS ZJMUDSEZAOVLJFZ055(H)65 - 99 mg/dL05/17/2025 7:05 AM [facility] LABORATORYCALCIUM9.58.5 - 10.5 mg/dL05/17/2025 7:05 AM [facility] LABORATORYEGFR Non-Race Dbhnsqgrm03(L)>=60 ml/min/1.73sq.m107/17/2024 7:05 AM [facility] Comment: Reported eGFR is based on the CKD-EPI 2020 equation that does not use a race coefficient. Specimen (Source)Anatomical Location / LateralityCollection Method / Volume Collection TimeReceived TimeBloodVenous blood / UnknownVenipuncture / Unknown 05/17/2025 5:39 AM EST05/17/2025 6:24 AM EST Narrative Authorizing ProviderResult TypeResult StatusRamy Lee BARRY BLOOD ORDERABLES Final ResultPerforming OrganizationAddressCity/State/ZIP CodePhone Number [facility] [address] [place] [id number], * (ABNORMAL) CBC auto differential (05/17/2025 5:39 AM EST)ComponentValueRef RangeTest MethodAnalysis TimePerformed AtPathologist JzboidxzuGIA94.04 - 11 x10E9/L107/17/2024 6:47 AM [facility] LABORATORYRBC Count3.11 (L)3.8 - 5.2 X10E12/L107/17/2024 6:47 AM [facility] Hemoglobin9.7(L)11.7 - 15.5 g/dL05/17/2025 6:47 AM [facility] KOFTJOQDSJKzoyprbcrf60.2(L)35 - 47 %05/17/2025 6:47 AM [facility] XOBFAUPRFWPMY8311 - 100 fL05/17/2025 6:47 AM [facility] ESZMGZZLIEZPZ09.227 - 34 pg05/17/2025 6:47 AM [facility] CDPJQZMCWKTWIM31.232 - 36 g/dL05/17/2025 6:47 AM [facility] HDNCWWCBZQTMK93.9(H)11.5 - 15 %05/17/2025 6:47 AM [facility] LABORATORYPlatelet Nqxue341835 - 450 X10E9/L107/17/2024 6:47 AM [facility] LABORATORYMPV9.67 - 12 fL05/17/2025 6:47 AM [facility] LABORATORYNeutrophils %74.0%05/17/2025 6:47 AM [facility] LABORATORYLymphocytes %15.8%05/17/2025 6:47 AM [facility] LABORATORYMonocytes %7.8%05/17/2025 6:47 AM [facility] LABORATORYEosinophils %1.7%05/17/2025 6:47 AM [facility] LABORATORYBasophils %0.7%05/17/2025 6:47 AM [facility] LABORATORYNeutrophils Absolute (A)8.2(H)1.5 - 6.6 10*3/uL 05/17/2025 6:47 AM [facility] LABORATORYLymphocytes Absolute 1.71.0 - 3.5 10*3/uL05/17/2025 6:47 AM [facility] Monocytes Absolute0.90.0 - 0.9 10*3/uL05/17/2025 6:47 AM [facility] LABORATORYEosinophils Absolute0.20.0 - 0.4 10*3/uL05/17/2025 6:47 AM [facility] LABORATORYBasophils Absolute0.10.0 - 0.2 10*3/uL 05/17/2025 6:47 AM [facility] LABORATORYDifferential Type AUTOMATED ICSWIZQALJIQ11/04/2025 6:47 AM [facility] LABORATORYSpecimen (Source)Anatomical Location / LateralityCollection Method / VolumeCollection TimeReceived TimeBloodVenous blood / UnknownVenipuncture / Pzpawmt5405/17/2025 5:39 AM EST05/17/2025 6:24 AM EST Narrative Authorizing ProviderResult TypeResult StatusAmulya R Dega MDLAB BLOOD ORDERABLES Final ResultPerforming OrganizationAddressCity/State/ZIP CodePhone Number [facility] [address] [place] [address], * (ABNORMAL) CK Total (05/17/2025 5:39 AM EST)ComponentValueRef RangeTest Method Analysis TimePerformed AtPathologist BztsjnbqdSWB10(L)24 - 170 U/L107/17/2024 7:06 AM [facility] LABORATORYSpecimen (Source)Anatomical Location / LateralityCollection Method / VolumeCollection TimeReceived Time BloodVenous blood / UnknownVenipuncture / Abiyffq0505/17/2025 5:39 AM EST 05/17/2025 6:24 AM EST Narrative Authorizing ProviderResult TypeResult StatusRohini Kimbrough ACADEMIC HOSPITALIST-CNPLAB BLOOD ORDERABLESFinal ResultPerforming OrganizationAddressCity/State/ZIP CodePhone Number [facility] [address] [place] [address], * (ABNORMAL) Bedside Glucose *Place/Obtain serum glucose if >500 per glucometer. (05/16/2025 10:00PM EST)ComponentValueRef RangeTest MethodAnalysis Time Performed AtPathologist SignatureBedside Glucose (POC)249(H)65 - 99 mg/dL 05/16/2025 10:01 PM [facility] LABORATORYSpecimen (Source)Anatomical Location / LateralityCollection Method / VolumeCollection TimeReceived Time arterial/qqjcoxynk72/03/2025 10:00 PM EST05/16/2025 10:01 PM EST Narrative Authorizing ProviderResult TypeResult StatusAmulya R Dega MDPOINT OF CARE TEST ORDERABLESFinal ResultPerforming OrganizationAddressCity/State/ZIP CodePhone Number [facility] [address] [place] [address], * Bedside Glucose *Place/Obtain serum glucose if >500 per glucometer. (05/16/2025 4:14 PM EST)ComponentValueRef RangeTest MethodAnalysis Time Performed AtPathologist SignatureBedside Glucose (POC)9765 - 99 mg/dL 05/16/2025 4:19 PM [facility] LABORATORYSpecimen (Source)Anatomical Location / LateralityCollection Method / VolumeCollection TimeReceived Time arterial/eiubttqbv80/03/2025 4:14 PM EST05/16/2025 4:19 PM EST Narrative Authorizing ProviderResult TypeResult StatusAmulya R Dega MDPOINT OF CARE TEST ORDERABLESFinal ResultPerforming OrganizationAddressCity/State/ZIP CodePhone Number [facility] [address] [place] [address], [place] * IR percutaneous placement nephrostomy tube left (05/16/2025 3:30 PM EST) Anatomical RegionLateralityModalityIRLeftX-Ray AngiographySpecimen (Source) Anatomical Location / LateralityCollection Method / VolumeCollection Time Received Time Narrative 05/16/2025 3:47 PM EST 1. Ultrasound guided puncture of left renal collecting system. 2. Left Antegrade nephrostogram. 3. Fluoroscopic guided placement of left 8 Scottish percutaneous nephrostomy catheter. CLINICAL INDICATION: Left hydronephrosis due to ureteral obstruction. CONSENT: ??The risks, benefits, and expectations of the procedure were eplained to the patient who signed a written consent. SEDATION: 50 mcg fentanyl for pain control. 10 mL 1% lidocaine. PROCEDURE: All elements of maximal sterile barrier techniques followed including: cap and mask and sterile gown and sterile gloves and a large sterile sheet and hand hygiene and 2% chlorhexidine for cutaneous antiseptics; in addition, sterile ultrasound techniques including ??sterile gel and sterile probe per hospital policy followed. The patient was placed on the fluoroscopy table in the prone position, and both flanks were prepped and draped in a sterile fashion. Evaluation of the left kidney with ultrasound confirmed the presence of left hydronephrosis. Ultrasound revealed a good window for percutaneous access . Therefore, the skin was infiltrated with 1% lidocaine, and a small skin abiel with an 11 blade was made. ??Using real-time ultrasound guidance A 21-gauge Chiba needle was advanced percutaneously into a posterior calyx of the left kidney during direct ultrasound needle visualization, and an ultrasound truck sales representative image was obtained and saved in PACS. An 018 wire was successfully introduced through the needle into the renal pelvis, then over the wire, the tract was dilated using an AccuStick set and the dilator was placed in the left renal pelvis. Contrast was injected and an antegrade nephrostogram was obtained. This confirmed lefthydronephrosis due to ureteral obstruction. ??Therefore, over a Ashraf wire, the tract was further dilated, then an 8 Scottish percutaneous nephrostomy catheter was introduced over the wire and formedin the renal pelvis during real-time fluoroscopic guidance. A fluoroscopic spot image was obtained and saved in PACS. The catheter was sutured to the skin with 2.0 Prolene sutures and connected to dependent drainage Reference Air Kerma = 15.4 mGy Fluoroscopy time: 1.8 minutes Saved images: 1 Estimated blood loss: Minimal Cotton Converter: None. Complications: None. IMPRESSION: 1. ??Successful fluoroscopic guided placement of left 8 Scottish percutaneous nephrostomy catheter connected to dependent drainage. 2. Before any attempt at antegrade left stent removal, would recommend waiting until tract matures,patient's respiratory status improves, and no further concern for urinary infection. Finalized by Demetri Begum on 05/16/2025 3:47 PM Authorizing ProviderResult TypeResult StatusBora WRIGHT IR ORDERABLESEdited Result - Final * (ABNORMAL) Bedside Glucose *Place/Obtain serum glucose if >500 per glucometer. (05/16/2025 11:07AM EST)ComponentValueRef RangeTest MethodAnalysis Time Performed AtPathologist SignatureBedside Glucose (POC)119(H)65 - 99 mg/dL 05/16/2025 11:08 AM [facility] LABORATORYSpecimen (Source)Anatomical Location / LateralityCollection Method / VolumeCollection TimeReceived Time arterial/yranpgxgn05/03/2025 11:07 AM EST05/16/2025 11:08 AM EST Narrative Authorizing ProviderResult TypeResult StatusGuy Drummond [facility] CENTEROINT OF CARE TEST ORDERABLESFinal ResultPerforming OrganizationAddressCity/State/ZIP CodePhone Number [facility] [address] [place] [address], [place] * (ABNORMAL) Bedside Glucose *Place/Obtain serum glucose if >500 per glucometer. (05/16/2025 7:20 AM EST)ComponentValueRef RangeTest MethodAnalysis Time Performed AtPathologist SignatureBedside Glucose (POC)131(H)65 - 99 mg/dL 05/16/2025 7:22 AM [facility] LABORATORYSpecimen (Source)Anatomical Location / LateralityCollection Method / VolumeCollection TimeReceived Time arterial/bmpywttzg53/03/2025 7:20 AM EST05/16/2025 7:22 AM EST Narrative Authorizing ProviderResult TypeResult StatusAmulya R Dega MDPOINT OF CARE TEST ORDERABLESFinal ResultPerforming OrganizationAddressCity/State/ZIP CodePhone Number [facility] [address] [place] [address], [place] * Phosphorus (05/16/2025 6:37 AM EST)ComponentValueRef RangeTest MethodAnalysis TimePerformed AtPathologist SignaturePHOSPHORUS3.12.4 - 4.9 mg/dL05/16/2025 8:11 AM [facility] LABORATORYSpecimen (Source)Anatomical Location / LateralityCollection Method / VolumeCollection TimeReceived Time BloodVenous blood / UnknownVenipuncture / Exmngxc7105/16/2025 6:37 AM EST 05/16/2025 7:39 AM EST Narrative Authorizing ProviderResult TypeResult StatusRamy Lee BARRY BLOOD ORDERABLES Final ResultPerforming OrganizationAddressty/State/ZIP CodePhone Number [facility] [address] [place] [address], * Magnesium (05/16/2025 6:37 AM EST)ComponentValueRef RangeTest MethodAnalysis TimePerformed AtPathologist SignatureMAGNESIUM2.21.8 - 2.6 mg/dL05/16/2025 8:11 AM [facility] LABORATORYSpecimen (Source)Anatomical Location / LateralityCollection Method / VolumeCollection TimeReceived Time BloodVenous blood / UnknownVenipuncture / Kibuepq7005/16/2025 6:37 AM EST 05/16/2025 7:39 AM EST Narrative Authorizing ProviderResult TypeResult StatusRamy A Mina MARLOWLAB BLOOD ORDERABLES Final ResultPerforming OrganizationAddressCity/State/ZIP CodePhone Number [facility] [address] [place] [address], * (ABNORMAL) Basic Metabolic Panel (05/16/2025 6:37 AM EST)ComponentValueRef RangeTest MethodAnalysis TimePerformed AtPathologist NepcuatvaYIMYFE579352 - 146 mmol/L107/16/2024 8:11 AM [facility] LABORATORYPOTASSIUM 3.53.5 - 5.0 mmol/L107/16/2024 8:11 AM [facility] TQRIWUYP49(L)98 - 109 mmol/L107/16/2024 8:11 AM [facility] LABORATORYCARBON MDDQSSQ64(H)22 - 32 mmol/L107/16/2024 8:11 AM [facility] LABORATORYANION GAP95 - 15 mmol/L107/16/2024 8:11 AM EST [facility] LABORATORYBLOOD UREA XASJJPZJ28(H)5 - 27 mg/dL 05/16/2025 8:11 AM [facility] LABORATORYCREATININE1.60(H)0.40 - 1.00 mg/dL05/16/2025 8:11 AM [facility] LABORATORYComment: METHOD TRACEABLE TO IDMS BEJPPFUQLDOPAZM7753 - 99 mg/dL05/16/2025 8:11 AM EST [facility] LABORATORYCALCIUM9.68.5 - 10.5 mg/dL05/16/2025 8:11 AM [facility] LABORATORYEGFR Non-Race Ungigkojd44(L)>=60 ml/min/1.73sq.m107/16/2024 8:11 AM [facility] Comment: Reported eGFR is based on the CKD-EPI 2020 equation that does not use a race coefficient. Specimen (Source)Anatomical Location / LateralityCollection Method / Volume Collection TimeReceived TimeBloodVenous blood / UnknownVenipuncture / Unknown 05/16/2025 6:37 AM EST05/16/2025 7:39 AM EST Narrative Authorizing ProviderResult TypeResult StatusRamy Lee BARRY BLOOD ORDERABLES Final ResultPerforming OrganizationAddressCity/State/ZIP CodePhone Number [facility] [address] [place] [address], [place] [phone] * (ABNORMAL) CBC auto differential (05/16/2025 6:37 AM EST)ComponentValueRef RangeTest MethodAnalysis TimePerformed AtPathologist SignatureWBC9.04 - 11 x10E9/L107/16/2024 7:52 AM [facility] LABORATORYRBC Count2.89 (L)3.8 - 5.2 X10E12/L107/16/2024 7:52 AM [facility] Hemoglobin9.0(L)11.7 - 15.5 g/dL05/16/2025 7:52 AM [facility] FRDUKAPBIMCxzfxjtpyr07.9(L)35 - 47 %05/16/2025 7:52 AM [facility] AAAOYKCMCDNCX9114 - 100 fL05/16/2025 7:52 AM [facility] OHXUKJRIYHHXD70.227 - 34 pg05/16/2025 7:52 AM [facility] ILCFXBJBFATQYO76.432 - 36 g/dL05/16/2025 7:52 AM [facility] LYZNNJDHPBTKN64.8(H)11.5 - 15 %05/16/2025 7:52 AM [facility] LABORATORYPlatelet Ermqz072584 - 450 X10E9/L107/16/2024 7:52 AM [facility] LABORATORYMPV9.57 - 12 fL05/16/2025 7:52 AM [facility] LABORATORYNeutrophils %65.8%05/16/2025 7:52 AM [facility] LABORATORYLymphocytes %21.3%05/16/2025 7:52 AM [facility] LABORATORYMonocytes %8.3%05/16/2025 7:52 AM [facility] LABORATORYEosinophils %3.9%05/16/2025 7:52 AM [facility] LABORATORYBasophils %0.7%05/16/2025 7:52 AM [facility] LABORATORYNeutrophils Absolute (A)5.91.5 - 6.6 10*3/uL 05/16/2025 7:52 AM [facility] LABORATORYLymphocytes Absolute 1.91.0 - 3.5 10*3/uL05/16/2025 7:52 AM [facility] Monocytes Absolute0.80.0 - 0.9 10*3/uL05/16/2025 7:52 AM [facility] LABORATORYEosinophils Absolute0.30.0 - 0.4 10*3/uL05/16/2025 7:52 AM [facility] LABORATORYBasophils Absolute0.10.0 - 0.2 10*3/uL 05/16/2025 7:52 AM [facility] LABORATORYDifferential Type AUTOMATED YTQSDWJJNEOP50/03/2025 7:52 AM [facility] LABORATORYSpecimen (Source)Anatomical Location / LateralityCollection Method / VolumeCollection TimeReceived TimeBloodVenous blood / UnknownVenipuncture / Fmizhxx5505/16/2025 6:37 AM EST05/16/2025 7:39 AM EST Narrative Authorizing ProviderResult TypeResult StatusAmhossein Drummond MDLAB BLOOD ORDERABLES Final ResultPerforming OrganizationAddressCity/State/ZIP CodePhone Number [facility] [address] [place] [address], * (ABNORMAL) Bedside Glucose *Place/Obtain serum glucose if >500 per glucometer. (05/15/2025 9:30 PM EST)ComponentValueRef RangeTest MethodAnalysis Time Performed AtPathologist SignatureBedside Glucose (POC)136(H)65 - 99 mg/dL 05/15/2025 9:33 PM [facility] LABORATORYSpecimen (Source)Anatomical Location / LateralityCollection Method / VolumeCollection TimeReceived Time arterial/mptvptbda74/02/2025 9:30 PM EST05/15/2025 9:33 PM EST Narrative Authorizing ProviderResult TypeResult StatusGuy Drummond MDPOINT OF CARE TEST ORDERABLESFinal ResultPerforming OrganizationAddressCity/State/ZIP CodePhone Number [facility] [address] [place] [address], [place] * (ABNORMAL) Bedside Glucose *Place/Obtain serum glucose if >500 per glucometer. (05/15/2025 4:14PM EST)ComponentValueRef RangeTest MethodAnalysis Time Performed AtPathologist SignatureBedside Glucose (POC)169(H)65 - 99 mg/dL 05/15/2025 4:30 PM [facility] LABORATORYSpecimen (Source)Anatomical Location / LateralityCollection Method / VolumeCollection TimeReceived Time arterial/uojtmezbs04/02/2025 4:14 PM EST05/15/2025 4:30 PM EST Narrative Authorizing ProviderResult TypeResult StatusAmulya R Dega MDPOINT OF CARE TEST ORDERABLESFinal ResultPerforming OrganizationAddressCity/State/ZIP CodePhone Number [facility] [address] [place] [address], [place] * (ABNORMAL) Bedside Glucose *Place/Obtain serum glucose if >500 per glucometer. (05/15/2025 12:24PM EST)ComponentValueRef RangeTest MethodAnalysis Time Performed AtPathologist SignatureBedside Glucose (POC)213(H)65 - 99 mg/dL 05/15/2025 12:29 PM [facility] LABORATORYSpecimen (Source)Anatomical Location / LateralityCollection Method / VolumeCollection TimeReceived Time arterial/irrsbjqdf56/02/2025 12:24 PM EST05/15/2025 12:29 PM EST Narrative Authorizing ProviderResult TypeResult StatusAmulya R Dega MDPOINT OF CARE TEST ORDERABLESFinal ResultPerforming OrganizationAddressty/State/ZIP CodePhone Number [facility] [address] [place] [address], [place] * (ABNORMAL) Blood gas, venous (05/15/2025 11:50 AM EST)ComponentValueRef Range Test MethodAnalysis TimePerformed AtPathologist SignatureSample typeVENOUS 05/15/2025 11:53 AM [facility] LABORATORYpH, Venous7.319(L)7.320 - 7.7813805/15/2025 11:53 AM [facility] LABORATORYpCO2, Haitte95.1(H)35.0 - 50.0 mmHg05/15/2025 11:53 AM [facility] LABORATORYpO2, Zbiwev02(H)30 - 50 mmHg05/15/2025 11:53 AM [facility] LABORATORYBase, Ojkclo25.0(H) 0.0 - 2.0 mmol/L107/15/2024 11:53 AM [facility] LABORATORYHCO3, Venous 41.2(H)20.0 - 24.0 mmol/L107/15/2024 11:53 AM [facility]OR[facility]ORY%O2 Saturation, Fybgcg53.0%05/15/2025 11:53 AM [facility] Marcos's testN/A107/15/2024 11:53 AM [facility] ZLWOXKGOFHTDR0721% 05/15/2025 11:53 AM [facility] LABORATORYSample siteN/A107/15/2024 11:53 AM [facility] LABORATORYInsp. O2 conc.28%05/15/2025 11:53 AM [facility] LABORATORYSource Of MpuluzDM88/02/2025 11:53 AM [facility] LABORATORYSpecimen (Source)Anatomical Location / LateralityCollection Method / VolumeCollection TimeReceived TimevenousVenous blood / Unknown 05/15/2025 11:50 AM EST05/15/2025 11:53 AM EST Narrative Authorizing ProviderResult TypeResult StatusAmhossein Drummond MDLAB BLOOD ORDERABLES Final ResultPerforming OrganizationAddressCity/State/ZIP CodePhone Number [facility] [address] [place] [address], * Protime & INR (05/15/2025 11:47 AM EST)ComponentValueRef RangeTest Method Analysis TimePerformed AtPathologist SpdoxvlfgRLNZFUE05.39.8 - 13.2 sec 05/15/2025 12:31 PM [facility] LABORATORYINR1.00.9 - 1.2 05/15/2025 12:31 PM [facility] LABORATORYSpecimen (Source) Anatomical Location / LateralityCollection Method / VolumeCollection Time Received TimeBloodVenous blood / UnknownVenipuncture / Jtvazaq2905/15/2025 11:47 AM EST05/15/2025 12:11 PM EST Narrative Authorizing ProviderResult TypeResult StatusSiddshyanne BARRY BLOOD ORDERABLESFinal ResultPerforming OrganizationAddressCity/State/ZIP CodePhone Number [facility] [address] [place] [address], * Potassium (05/15/2025 11:47 AM EST)ComponentValueRef RangeTest MethodAnalysis TimePerformed AtPathologist SignaturePOTASSIUM4.23.5 - 5.0 mmol/L107/15/2024 12:48 PM [facility] LABORATORYSpecimen (Source)Anatomical Location / LateralityCollection Method / VolumeCollection TimeReceived Time BloodVenous blood / UnknownVenipuncture / Uositnb8505/15/2025 11:47 AM EST 05/15/2025 12:11 PM EST Narrative Authorizing ProviderResult TypeResult StatusAmazraa Serge BARRY BLOOD ORDERABLES Final ResultPerforming OrganizationAddressCity/State/ZIP CodePhone Number [facility] [address] [place] [address], * X-ray chest 1 view (05/15/2025 9:35 AM EST)Anatomical RegionLateralityModality Body, ChestN/AComputed RadiographySpecimen (Source)Anatomical Location / LateralityCollection Method / VolumeCollection TimeReceived Time05/15/2025 9:38 AM EST Narrative 05/15/2025 9:38 AM EST Single view chest History:evaluate if there is improvement in vascular congestion ??Difficulty breathing, shortness of breath Comparison: 05/12/2025 Findings: Single portable view of the chest. Mild interval decreased vascular congestion. Bilateral lower lung atelectasis and small bilateral pleural effusions. Stable cardiomediastinal silhouette. Impression: Mild interval decreased vascular congestion and edema. Finalized by David Connolly MD on 05/15/2025 9:38 AM Procedure Note David Connolly MD - 05/15/2025 Single view chest History:evaluate if there is improvement in vascular congestionDifficulty breathing, shortness of breath Comparison: 05/12/2025 Findings: Single portable view of the chest. Mild interval decreased vascularcongestion. Bilateral lower lung atelectasis and small bilateral pleuraleffusions. Stable cardiomediastinal silhouette. Impression: Mild interval decreased vascular congestion and edema. Finalized by David Connolly MD on 05/15/2025 9:38 AM Authorizing ProviderResult TypeResult StatusGuy Drummond MDIMG DIAGNOSTIC IMAGING ORDERABLESFinal Result * (ABNORMAL) Bedside Glucose *Place/Obtain serum glucose if >500 per glucometer. (05/15/2025 8:09 AM EST)ComponentValueRef RangeTest MethodAnalysis Time Performed AtPathologist SignatureBedside Glucose (POC)182(H)65 - 99 mg/dL 05/15/2025 8:15 AM [facility] LABORATORYSpecimen (Source)Anatomical Location / LateralityCollection Method / VolumeCollection TimeReceived Time arterial/rbdqshezg76/02/2025 8:09 AM EST05/15/2025 8:15 AM EST Narrative Authorizing ProviderResult TypeResult StatusGuy Drummond MDPOINT OF CARE TEST ORDERABLESFinal ResultPerforming OrganizationAddressCity/State/ZIP CodePhone Number [facility] [address] [place] [address], [place] * Phosphorus (05/15/2025 4:51 AM EST)ComponentValueRef RangeTest MethodAnalysis TimePerformed AtPathologist SignaturePHOSPHORUS3.72.4 - 4.9 mg/dL05/15/2025 6:19 AM [facility] LABORATORYSpecimen (Source)Anatomical Location / LateralityCollection Method / VolumeCollection TimeReceived Time BloodVenous blood / UnknownVenipuncture / Huxlkic4205/15/2025 4:51 AM EST 05/15/2025 5:39 AM EST Narrative Authorizing ProviderResult TypeResult StatusGustavo BARRY BLOOD ORDERABLES Final ResultPerforming OrganizationAddressCity/State/ZIP CodePhone Number [facility] [address] [place] [address], [place] [phone] * Magnesium (05/15/2025 4:51 AM EST)ComponentValueRef RangeTest MethodAnalysis TimePerformed AtPathologist SignatureMAGNESIUM2.21.8 - 2.6 mg/dL05/15/2025 6:19 AM [facility] LABORATORYSpecimen (Source)Anatomical Location / LateralityCollection Method / VolumeCollection TimeReceived Time BloodVenous blood / UnknownVenipuncture / Rmqbaij0805/15/2025 4:51 AM EST 05/15/2025 5:39 AM EST Narrative Authorizing ProviderResult TypeResult StatusRamy Lee BARRY BLOOD ORDERABLES Final ResultPerforming OrganizationAddressCity/State/ZIP CodePhone Number [facility] [address] [place] [address], * (ABNORMAL) CBC auto differential (05/15/2025 4:51 AM EST)ComponentValueRef RangeTest MethodAnalysis TimePerformed AtPathologist SignatureWBC9.44 - 11 x10E9/L107/15/2024 6:02 AM [facility] LABORATORYRBC Count2.87 (L)3.8 - 5.2 X10E12/L107/15/2024 6:02 AM [facility] Hemoglobin8.9(L)11.7 - 15.5 g/dL05/15/2025 6:02 AM [facility] NUUIAYGNYUIjxmalsglf54.0(L)35 - 47 %05/15/2025 6:02 AM [facility] XVLIJJJAREFTH8959 - 100 fL05/15/2025 6:02 AM [facility] WQIHIODGMNITE34.127 - 34 pg05/15/2025 6:02 AM [facility] TIQNCQDDEAPCIG92.9(L)32 - 36 g/dL05/15/2025 6:02 AM [facility] MLZDYVWKMIKMS25.3(H)11.5 - 15 %05/15/2025 6:02 AM [facility] LABORATORYPlatelet Sjlpv605553 - 450 X10E9/L107/15/2024 6:02 AM [facility] LABORATORYMPV9.77 - 12 fL05/15/2025 6:02 AM [facility] LABORATORYNeutrophils %65.5%05/15/2025 6:02 AM [facility] LABORATORYLymphocytes %22.3%05/15/2025 6:02 AM [facility] LABORATORYMonocytes %7.7%05/15/2025 6:02 AM [facility] LABORATORYEosinophils %3.7%05/15/2025 6:02 AM [facility] LABORATORYBasophils %0.8%05/15/2025 6:02 AM [facility] LABORATORYNeutrophils Absolute (A)6.11.5 - 6.6 10*3/uL 05/15/2025 6:02 AM [facility] LABORATORYLymphocytes Absolute 2.11.0 - 3.5 10*3/uL05/15/2025 6:02 AM [facility] Monocytes Absolute0.70.0 - 0.9 10*3/uL05/15/2025 6:02 AM [facility] LABORATORYEosinophils Absolute0.40.0 - 0.4 10*3/uL05/15/2025 6:02 AM [facility] LABORATORYBasophils Absolute0.10.0 - 0.2 10*3/uL 05/15/2025 6:02 AM [facility] LABORATORYDifferential Type AUTOMATED PEYNUWUXTAXK48/02/2025 6:02 AM [facility] LABORATORYSpecimen (Source)Anatomical Location / LateralityCollection Method / VolumeCollection TimeReceived TimeBloodVenous blood / UnknownVenipuncture / Okunuft4905/15/2025 4:51 AM EST05/15/2025 5:39 AM EST Narrative Authorizing ProviderResult TypeResult StatusAmhossein BARRY BLOOD ORDERABLES Final ResultPerforming OrganizationAddressCity/State/ZIP CodePhone Number [facility] [address] [place] [address], * (ABNORMAL) Basic Metabolic Panel (05/15/2025 4:51 AM EST)ComponentValueRef RangeTest MethodAnalysis TimePerformed AtPathologist RqvplukdhCCICPW057016 - 146 mmol/L107/15/2024 6:19 AM [facility] LABORATORYPOTASSIUM 3.63.5 - 5.0 mmol/L107/15/2024 6:19 AM [facility] BGGEHTSS81(L)98 - 109 mmol/L107/15/2024 6:19 AM [facility] LABORATORYCARBON YSRGLLM62(H)22 - 32 mmol/L107/15/2024 6:19 AM [facility] LABORATORYANION GAP85 - 15 mmol/L107/15/2024 6:19 AM EST [facility] LABORATORYBLOOD UREA DGUCIHQF30(H)5 - 27 mg/dL 05/15/2025 6:19 AM [facility] LABORATORYCREATININE1.70(H)0.40 - 1.00 mg/dL05/15/2025 6:19 AM [facility] LABORATORYComment: METHOD TRACEABLE TO IDMS FUFFJWCSRLCRXHU304(H)65 - 99 mg/dL05/15/2025 6:19 AM [facility] LABORATORYCALCIUM9.58.5 - 10.5 mg/dL05/15/2025 6:19 AM [facility] LABORATORYEGFR Non-Race Vwvmhpcac67(L)>=60 ml/min/1.73sq.m107/15/2024 6:19 AM [facility] Comment: Reported eGFR is based on the CKD-EPI 2020 equation that does not use a race coefficient. Specimen (Source)Anatomical Location / LateralityCollection Method / Volume Collection TimeReceived TimeBloodVenous blood / UnknownVenipuncture / Unknown 05/15/2025 4:51 AM EST05/15/2025 5:39 AM EST Narrative Authorizing ProviderResult TypeResult StatusAmhossein BARRY BLOOD ORDERABLES Final ResultPerforming OrganizationAddressCity/State/ZIP CodePhone Number [facility] [address] [place] [address], * Liver panel (05/15/2025 4:51 AM EST)ComponentValueRef RangeTest MethodAnalysis TimePerformed AtPathologist SignatureTOTAL PROTEIN6.46.0 - 8.0 g/dL05/15/2025 6:19 AM [facility] LABORATORYALBUMIN3.33.2 - 5.3 g/dL 05/15/2025 6:19 AM [facility] LABORATORYBILIRUBIN,TOTAL0.50.3 - 1.2 mg/dL05/15/2025 6:19 AM [facility] LABORATORYALKALINE KGDJUATXHSP8906 - 130 U/L107/15/2024 6:19 AM [facility] YIZGKRKZVLGYE13<=41 U/L107/15/2024 6:19 AM [facility] LABORATORYALT3<=31 U/L107/15/2024 6:19 AM [facility] LABORATORYBILIRUBIN,DIRECT0.1<=0.4 mg/dL05/15/2025 6:19 AM [facility] LABORATORYSpecimen (Source)Anatomical Location / LateralityCollection Method / VolumeCollection TimeReceived TimeBloodVenous blood / Unknown Venipuncture / Etplckq5705/15/2025 4:51 AM EST05/15/2025 5:39 AM EST Narrative Authorizing ProviderResult TypeResult StatusSwapna BARRY BLOOD ORDERABLESFinal ResultPerforming OrganizationAddressCity/State/ZIP CodePhone Number [facility] [address] [place] [address], * (ABNORMAL) Bedside Glucose *Place/Obtain serum glucose if >500 per glucometer. (05/14/2025 9:27 PM EDT)ComponentValueRef RangeTest MethodAnalysis Time Performed AtPathologist SignatureBedside Glucose (POC)212(H)65 - 99 mg/dL 05/14/2025 9:28 PM [facility] LABORATORYSpecimen (Source)Anatomical Location / LateralityCollection Method / VolumeCollection TimeReceived Time arterial/xgblnkisn46/01/2025 9:27 PM EDT107/14/2024 9:28 PM EDT Narrative Authorizing ProviderResult TypeResult StatusAmulya R Dega MDPOINT OF CARE TEST ORDERABLESFinal ResultPerforming OrganizationAddressty/State/ZIP CodePhone Number [facility] [address] [place] [address], * (ABNORMAL) Bedside Glucose *Place/Obtain serum glucose if >500 per glucometer. (05/14/2025 4:45 PM EDT)ComponentValueRef RangeTest MethodAnalysis Time Performed AtPathologist SignatureBedside Glucose (POC)238(H)65 - 99 mg/dL 05/14/2025 5:00 PM [facility] LABORATORYSpecimen (Source)Anatomical Location / LateralityCollection Method / VolumeCollection TimeReceived Time arterial/qgxdmgubu53/01/2025 4:45 PM EDT107/14/2024 5:00 PM EDT Narrative Authorizing ProviderResult TypeResult StatusAmazraa R Dega MDPOINT OF CARE TEST ORDERABLESFinal ResultPerforming OrganizationAddressty/State/ZIP CodePhone Number [facility] [address] [place] [address], [place] * (ABNORMAL) Bedside Glucose *Place/Obtain serum glucose if >500 per glucometer. (05/14/2025 12:00PM EDT)ComponentValueRef RangeTest MethodAnalysis Time Performed AtPathologist SignatureBedside Glucose (POC)198(H)65 - 99 mg/dL 05/14/2025 12:17 PM [facility] LABORATORYSpecimen (Source)Anatomical Location / LateralityCollection Method / VolumeCollection TimeReceived Time arterial/rcyrknuof60/01/2025 12:00 PM EDT107/14/2024 12:17 PM EDT Narrative Authorizing ProviderResult TypeResult StatusAmazraa R Dega MDPOINT OF CARE TEST ORDERABLESFinal ResultPerforming OrganizationAddWellSpan Health/State/ZIP CodePhone Number [facility] [address] [place] [address], [place] * Blood culture #2 (05/14/2025 9:52 AM EDT)ComponentValueRef RangeTest Method Analysis TimePerformed AtPathologist SignatureCULTURE RESULTSNO GROWTH 5 DAYS 05/19/2025 10:01 AM [facility] LABORATORYSpecimen (Source) Anatomical Location / LateralityCollection Method / VolumeCollection Time Received TimeBloodVenous blood / UnknownVenipuncture / Ylhvwml9205/14/2025 9:52 AM EDT107/14/2024 10:28 AM EDT Narrative [facility] - 05/19/2025 10:01 AM EST Suboptimal volume of blood collected, Results may be affected. Authorizing ProviderResult TypeResult StatusLindsdoug Ramos APRNPARK NICOLLET METHODIST HOSPITALROBIOLOGY - GENERAL ORDERABLESFinal ResultPerforming OrganizationAddressCity/State/ZIP CodePhone Number [facility] [address] [place] [address], * Blood culture #1 (05/14/2025 9:52 AM EDT)ComponentValueRef RangeTest Method Analysis TimePerformed AtPathologist SignatureCULTURE RESULTSNO GROWTH 5 DAYS 05/19/2025 10:01 AM [facility] LABORATORYSpecimen (Source) Anatomical Location / LateralityCollection Method / VolumeCollection Time Received TimeBloodVenous blood / UnknownVenipuncture / Gnamris2305/14/2025 9:52 AM EDT107/14/2024 10:28 AM EDT Narrative [facility] - 05/19/2025 10:01 AM EST Suboptimal volume of blood collected, Results may be affected. Authorizing ProviderResult TypeResult StatusLincony Ramos APRNMCLEOD HEALTH DARLINGTON - GENERAL ORDERABLESFinal ResultPerforming OrganizationAddressCity/State/ZIP CodePhone Number [facility] [address] [place] [address], [place] [phone] * (ABNORMAL) Bedside Glucose *Place/Obtain serum glucose if >500 per glucometer. (05/14/2025 7:51 AM EDT)ComponentValueRef RangeTest MethodAnalysis Time Performed AtPathologist SignatureBedside Glucose (POC)200(H)65 - 99 mg/dL 05/14/2025 7:56 AM [facility] LABORATORYSpecimen (Source)Anatomical Location / LateralityCollection Method / VolumeCollection TimeReceived Time arterial/mzoxdbras37/01/2025 7:51 AM EDT107/14/2024 7:56 AM EDT Narrative Authorizing ProviderResult TypeResult StatusAmulya R Dega MDPOINT OF CARE TEST ORDERABLESFinal ResultPerforming OrganizationAddressCity/State/ZIP CodePhone Number [facility] [address] [place] [place] [address], [place] * (ABNORMAL) CK Total (05/14/2025 5:19 AM EDT)ComponentValueRef RangeTest Method Analysis TimePerformed AtPathologist IlrdxeismBXA82(L)24 - 170 U/L107/14/2024 3:07 PM [facility] LABORATORYSpecimen (Source)Anatomical Location / LateralityCollection Method / VolumeCollection TimeReceived Time BloodVenous blood / UnknownVenipuncture / Ohojpec2405/14/2025 5:19 AM EDT 05/14/2025 6:14 AM EDT Narrative Authorizing ProviderResult TypeResult StatusLindsey Richard ACADEMIC HOSPITALIST-CNPLAB BLOOD ORDERABLESFinal ResultPerforming OrganizationAddressCity/State/ZIP CodePhone Number [facility] [address] [place] [address], [place] [phone] * (ABNORMAL) B-type natriuretic peptide (05/14/2025 5:19 AM EDT)ComponentValue Ref RangeTest MethodAnalysis TimePerformed AtPathologist SignatureBNP1,173(H) <=100 pg/mL05/14/2025 9:11 AM [facility] LABORATORYSpecimen (Source)Anatomical Location / LateralityCollection Method / VolumeCollection TimeReceived TimeBloodVenous blood / UnknownVenipuncture / Cxmilcf5705/14/2025 5:19 AM EDT107/14/2024 6:14 AM EDT Narrative Authorizing ProviderResult TypeResult StatusVidhit Lenora DOLAB BLOOD ORDERABLES Final ResultPerforming OrganizationAddressCity/State/ZIP CodePhone Number [facility] [address] [place] [address], [place] [phone] * Phosphorus (05/14/2025 5:19 AM EDT)ComponentValueRef RangeTest MethodAnalysis TimePerformed AtPathologist SignaturePHOSPHORUS3.72.4 - 4.9 mg/dL05/14/2025 6:47 AM [facility] LABORATORYSpecimen (Source)Anatomical Location / LateralityCollection Method / VolumeCollection TimeReceived Time BloodVenous blood / UnknownVenipuncture / Xaefxkd4705/14/2025 5:19 AM EDT 05/14/2025 6:14 AM EDT Narrative Authorizing ProviderResult TypeResult StatusRamy Lee BARRY BLOOD ORDERABLES Final ResultPerforming OrganizationAddressCity/State/ZIP CodePhone Number [facility] [address] [place] [address], * Magnesium (05/14/2025 5:19 AM EDT)ComponentValueRef RangeTest MethodAnalysis TimePerformed AtPathologist SignatureMAGNESIUM2.11.8 - 2.6 mg/dL05/14/2025 6:47 AM [facility] LABORATORYSpecimen (Source)Anatomical Location / LateralityCollection Method / VolumeCollection TimeReceived Time BloodVenous blood / UnknownVenipuncture / Vzwgyqd4405/14/2025 5:19 AM EDT 05/14/2025 6:14 AM EDT Narrative Authorizing ProviderResult TypeResult StatusRamy Lee BARRY BLOOD ORDERABLES Final ResultPerforming OrganizationAddressCity/State/ZIP CodePhone Number [facility] [address] [place] [address], * (ABNORMAL) CBC auto differential (05/14/2025 5:19 AM EDT)ComponentValueRef RangeTest MethodAnalysis TimePerformed AtPathologist SignatureWBC9.14 - 11 x10E9/L107/14/2024 6:28 AM [facility] LABORATORYRBC Count3.01 (L)3.8 - 5.2 X10E12/L107/14/2024 6:28 AM [facility] Hemoglobin9.4(L)11.7 - 15.5 g/dL05/14/2025 6:28 AM [facility] AAPXIHRPPBNjvitlzuhs95.2(L)35 - 47 %05/14/2025 6:28 AM [facility] NWCNINNKPCUHH3370 - 100 fL05/14/2025 6:28 AM [facility] CLSERAHZOTVTA58.227 - 34 pg05/14/2025 6:28 AM [facility] RENFHIVVTAMNKT28.232 - 36 g/dL05/14/2025 6:28 AM [facility] NMUVISSGJZOZD44.5(H)11.5 - 15 %05/14/2025 6:28 AM [facility] LABORATORYPlatelet Rzkvb381401 - 450 X10E9/L107/14/2024 6:28 AM [facility] LABORATORYMPV9.97 - 12 fL05/14/2025 6:28 AM [facility] LABORATORYNeutrophils %68.2%05/14/2025 6:28 AM [facility] LABORATORYLymphocytes %19.9%05/14/2025 6:28 AM [facility] LABORATORYMonocytes %7.8%05/14/2025 6:28 AM [facility] LABORATORYEosinophils %3.0%05/14/2025 6:28 AM [facility] LABORATORYBasophils %1.1%05/14/2025 6:28 AM [facility] LABORATORYNeutrophils Absolute (A)6.21.5 - 6.6 10*3/uL 05/14/2025 6:28 AM [facility] LABORATORYLymphocytes Absolute 1.81.0 - 3.5 10*3/uL05/14/2025 6:28 AM [facility] Monocytes Absolute0.70.0 - 0.9 10*3/uL05/14/2025 6:28 AM [facility] [facility] LABORATORYEosinophils Absolute0.30.0 - 0.4 10*3/uL05/14/2025 6:28 AM [facility] LABORATORYBasophils Absolute0.10.0 - 0.2 10*3/uL 05/14/2025 6:28 AM [facility] LABORATORYDifferential Type AUTOMATED JEBGPASCSZDR55/01/2025 6:28 AM [facility] LABORATORYSpecimen (Source)Anatomical Location / LateralityCollection Method / VolumeCollection TimeReceived TimeBloodVenous blood / UnknownVenipuncture / Pfzhhlh7505/14/2025 5:19 AM EDT107/14/2024 6:14 AM EDT Narrative Authorizing ProviderResult TypeResult StatusGuy Drummond MDMEAD[facility] BLOOD ORDERABLES Final ResultPerforming OrganizationAddressCity/State/ZIP CodePhone Number [facility] [address] [place] [address], * (ABNORMAL) Ionized calcium (05/14/2025 5:19 AM EDT)ComponentValueRef RangeTest MethodAnalysis TimePerformed AtPathologist SignatureIONIZED CALCIUM - ICAN4.4 (L)4.5 - 5.3 mg/dL05/14/2025 8:05 AM [facility] Specimen (Source)Anatomical Location / LateralityCollection Method / Volume Collection TimeReceived TimeBloodVenous blood / UnknownVenipuncture / Unknown 05/14/2025 5:19 AM EDT107/14/2024 6:17 AM EDT Narrative Authorizing ProviderResult TypeResult StatusGustavo Enriquez MDME[facility] BLOOD ORDERABLES Final ResultPerforming OrganizationAddressty/State/ZIP CodePhone Number [facility] [address] [place] [address], [place] [phone] * (ABNORMAL) Basic Metabolic Panel (05/14/2025 5:19 AM EDT)ComponentValueRef RangeTest MethodAnalysis TimePerformed AtPathologist LyzjosmjtHZTKRV412083 - 146 mmol/L107/14/2024 6:46 AM [facility] LABORATORYPOTASSIUM 4.23.5 - 5.0 mmol/L107/14/2024 6:46 AM [facility] QIWRLKMY58(L)98 - 109 mmol/L107/14/2024 6:46 AM [facility] LABORATORYCARBON QYBNMPQ73(H)22 - 32 mmol/L107/14/2024 6:46 AM [facility] LABORATORYANION QDI183 - 15 mmol/L107/14/2024 6:46 AM EDT [facility] LABORATORYBLOOD UREA KRBAMLPQ15(H)5 - 27 mg/dL 05/14/2025 6:46 AM [facility] LABORATORYCREATININE1.69(H)0.40 - 1.00 mg/dL05/14/2025 6:46 AM [facility] LABORATORYComment: METHOD TRACEABLE TO IDMS XRLKPMAQJUYEOTG168(H)65 - 99 mg/dL05/14/2025 6:46 AM [facility] LABORATORYCALCIUM9.38.5 - 10.5 mg/dL05/14/2025 6:46 AM [facility] LABORATORYEGFR Non-Race Lpnttlfcv70(L)>=60 ml/min/1.73sq.m107/14/2024 6:46 AM [facility] Comment: Reported eGFR is based on the CKD-EPI 2020 equation that does not use a race coefficient. Specimen (Source)Anatomical Location / LateralityCollection Method / Volume Collection TimeReceived TimeBloodVenous blood / UnknownVenipuncture / Unknown 05/14/2025 5:19 AM EDT107/14/2024 6:14 AM EDT Narrative Authorizing ProviderResult TypeResult StatusAmhossein BARRY BLOOD ORDERABLES Final ResultPerforming OrganizationAddressCity/State/ZIP CodePhone Number [facility] [address] [place] [address], * Liver panel (05/14/2025 5:19 AM EDT)ComponentValueRef RangeTest MethodAnalysis TimePerformed AtPathologist SignatureTOTAL PROTEIN6.36.0 - 8.0 g/dL05/14/2025 6:47 AM [facility] LABORATORYALBUMIN3.43.2 - 5.3 g/dL 05/14/2025 6:47 AM [facility] LABORATORYBILIRUBIN,TOTAL0.60.3 - 1.2 mg/dL05/14/2025 6:47 AM [facility] LABORATORYALKALINE OPPEZQMDETW0204 - 130 U/L107/14/2024 6:47 AM [facility] CWQPFUIPVTUAJ01<=41 U/L107/14/2024 6:47 AM [facility] LABORATORYALT<3<=31 U/L107/14/2024 6:47 AM [facility] LABORATORYBILIRUBIN,DIRECT0.1<=0.4 mg/dL05/14/2025 6:47 AM [facility] LABORATORYSpecimen (Source)Anatomical Location / LateralityCollection Method / VolumeCollection TimeReceived TimeBloodVenous blood / Unknown Venipuncture / Aqqodix6805/14/2025 5:19 AM EDT107/14/2024 6:14 AM EDT Narrative Authorizing ProviderResult TypeResult StatusSwapna Mcnair [facility] BLOOD ORDERABLESFinal ResultPerforming OrganizationAddressCity/State/ZIP CodePhone Number [facility] [address] [place] [address], [place] [phone] * (ABNORMAL) Bedside Glucose *Place/Obtain serum glucose if >500 per glucometer. (05/13/2025 9:20 PM EDT)ComponentValueRef RangeTest MethodAnalysis Time Performed AtPathologist SignatureBedside Glucose (POC)225(H)65 - 99 mg/dL 05/13/2025 9:24 PM [facility] LABORATORYSpecimen (Source)Anatomical Location / LateralityCollection Method / VolumeCollection TimeReceived Time arterial/jpzuyucno31/31/2025 9:20 PM EDT1 9:24 PM EDT Narrative Authorizing ProviderResult TypeResult StatusAmulya R Dega MDPOINT OF CARE TEST ORDERABLESFinal ResultPerforming OrganizationAddressCity/State/ZIP CodePhone Number [facility] [address] [place] [address], [place] * (ABNORMAL) Bedside Glucose *Place/Obtain serum glucose if >500 per glucometer. (05/13/2025 4:12 PM EDT)ComponentValueRef RangeTest MethodAnalysis Time Performed AtPathologist SignatureBedside Glucose (POC)165(H)65 - 99 mg/dL 05/13/2025 4:14 PM [facility] LABORATORYSpecimen (Source)Anatomical Location / LateralityCollection Method / VolumeCollection TimeReceived Time arterial/yjjwxdgxh35/31/2025 4:12 PM EDT1 4:14 PM EDT Narrative Authorizing ProviderResult TypeResult StatusAmulya R Dega MDPOINT OF CARE TEST ORDERABLESFinal ResultPerforming OrganizationAddressCity/State/ZIP CodePhone Number [facility] [address] [place] [address], * (ABNORMAL) Blood Gas, Arterial (05/13/2025 3:43 PM EDT)ComponentValueRef Range Test MethodAnalysis TimePerformed AtPathologist SignatureSample typeARTERIAL 05/13/2025 4:14 PM [facility] LABORATORYpH, Arterial7.315(L)7.350 - 7.6272405/13/2025 4:14 PM [facility] LABORATORYpCO2, Skfwoznw47.9(HH) 35.0 - 45.0 mmHg05/13/2025 4:14 PM [facility] LABORATORYPO2, Arterial 187(H)80 - 100 mmHg05/13/2025 4:14 PM [facility] LABORATORYBase, Hktxvn67.0(H)0.0 - 2.0 mmol/L1 4:14 PM [facility] HCO3, Mxitoltl89.2(H)22.0 - 26.0 mmol/L1 4:14 PM [facility]OR[facility]ORY%O2 Saturation, Juyqefls94.0>90.0 %05/13/2025 4:14 PM [facility] LABORATORYAllen's testN/A1 4:14 PM [facility] ANZQBLWTEFGNV7598%05/13/2025 4:14 PM [facility] LABORATORYSample siteR Brach05/13/2025 4:14 PM [facility] LABORATORYInsp. O2 conc.36% 05/13/2025 4:14 PM [facility] LABORATORYSource Of MnjsssAA82/31/2025 4:14 PM [facility] LABORATORYSpecimen (Source)Anatomical Location / LateralityCollection Method / VolumeCollection TimeReceived Timearterial (Blood, Arterial)05/13/2025 3:43 PM EDT1 4:14 PM EDT Narrative Authorizing ProviderResult TypeResult StatusGuy Drummond MDLAB BLOOD ORDERABLES Final ResultPerforming OrganizationAddressCity/State/ZIP CodePhone Number [facility] [address] [place] [address], [place] * (ABNORMAL) Bedside Glucose *Place/Obtain serum glucose if >500 per glucometer. (05/13/2025 12:48PM EDT)ComponentValueRef RangeTest MethodAnalysis Time Performed AtPathologist SignatureBedside Glucose (POC)195(H)65 - 99 mg/dL 05/13/2025 12:50 PM [facility] LABORATORYSpecimen (Source)Anatomical Location / LateralityCollection Method / VolumeCollection TimeReceived Time arterial/ugcdwszhv10/31/2025 12:48 PM EDT1 12:50 PM EDT Narrative Authorizing ProviderResult TypeResult StatusGuy Drummond MDPOINT OF CARE TEST ORDERABLESFinal ResultPerforming OrganizationAddressCity/State/ZIP CodePhone Number [facility] [address] [place] [address], [place] * CT brain without contrast (05/13/2025 10:42 AM EDT)Anatomical RegionLaterality ModalityNeuro, Head, Head and Neck, Neuro CoveraN/AComputed TomographySpecimen (Source)Anatomical Location / LateralityCollection Method / VolumeCollection TimeReceived Time05/13/2025 10:49 AM EDT Narrative 05/13/2025 11:[address] BRAIN WO CONT 05/13/2025 10:33 AM INDICATION: left pupil asymmetry, stroke alert, questionable facial droop COMPARISON: CT brain without contrast 05/02/2025 TECHNIQUE: Serial axial images were obtained on a multidetector CT through the head without the useof intravenous contrast, as per the standard departmental protocol. Multiplanar 2D MPR reformatted images were then generated. FINDINGS: No acute intracranial hemorrhage, mass effect, shift of midline structures, or abnormal extra axialfluid collection. No evidence of acute large vessel territorial ischemia. Chronic microvascular ischemic changes. Mild to moderate overall brain volume loss. Partial empty sella. Intracranial vascular calcifications. Ventricular system size and morphology are normal, basal cisterns are patent. Bilateral pseudophakia, orbits are symmetric. No depressed or displaced calvarial fracture. Minimalmucosal thickening of the paranasal sinuses. Mastoid air cells are well-aerated. Asymmetric degenerative changes of the right temporomandibular joint. Presumed cerumen within the bilateral external auditory canals. Multiple deep dental caries and periapical lucencies. IMPRESSION: * ??No acute intracranial findings, by CT. If there is concern for acute infarct, MRI can be considered. * ??Partially visualized nodules within the bilateral superficial parotid lobes measuring up to 0.9cm in short axis. These may represent enlarged lymph nodes or primary salivary gland tumor, consider follow-up neck cross-sectional imaging or tissue sampling for definitive diagnosis. * ??Multiple deep dental caries and periapical lucencies. Approved by Resident: Jackson Ritter MD ??on 05/13/2025 10:49 AM Tomer Mitchell MD have personally reviewed the image(s) and agree with and/or edited the report Finalized by Tomer Daily MD on 05/13/2025 11:06 AM Procedure Note Tomer Daily MD - 05/13/2025 CT BRAIN WO CONT 05/13/2025 10:33 AM INDICATION: left pupil asymmetry, stroke alert, questionable facialdroop COMPARISON: CT brain without contrast 05/02/2025 TECHNIQUE: Serial axial images were obtained on a multidetector CT throughthe head without the use of intravenous contrast, as per the standarddepartmental protocol. Multiplanar 2D MPR reformatted images were thengenerated. FINDINGS: No acute intracranial hemorrhage, mass effect, shift of midlinestructures, or abnormal extra axial fluid collection. No evidence of acutelarge vessel territorial ischemia. Chronic microvascular ischemic changes.Mild to moderate overall brain volume loss. Partial empty sella.Intracranial vascular calcifications. Ventricular system size and morphology are normal, basalcisterns are patent. Bilateral pseudophakia, orbits are symmetric. No depressed or displacedcalvarial fracture. Minimal mucosal thickening of the paranasal sinuses.Mastoid air cells are well-aerated. Asymmetric degenerative changes of theright temporomandibular joint. Presumed cerumen within the bilateralexternal auditory canals. Multiple deep dental caries and periapical lucencies. IMPRESSION: * No acute intracranial findings, by CT. If there is concern for acuteinfarct, MRI can be considered. * Partially visualized nodules within the bilateral superficial parotidlobes measuring up to 0.9 cm in short axis. These may represent enlargedlymph nodes or primary salivary gland tumor, consider follow-up neckcross-sectional imaging or tissue sampling for definitive diagnosis. * Multiple deep dental caries and periapical lucencies. Approved by Resident: Jackson Ritter MD on 05/13/2025 10:49 AM Tomer Mitchell MD have personally reviewed the image(s) and agree withand/or edited the report Finalized by Tomer Daily MD on 05/13/2025 11:06 AM Authorizing ProviderResult TypeResult StatusAlyssa Chandra [facility] CT ORDERABLES Final Result * (ABNORMAL) CBC auto differential (05/13/2025 9:01 AM EDT)ComponentValueRef RangeTest MethodAnalysis TimePerformed AtPathologist SignatureWBC8.34 - 11 x10E9/L1 9:22 AM [facility] LABORATORYRBC Count2.98 (L)3.8 - 5.2 X10E12/L1 9:22 AM [facility] Hemoglobin9.5(L)11.7 - 15.5 g/dL05/13/2025 9:22 AM [facility] UWGHNLWGNUPzwtobwyto66.3(L)35 - 47 %05/13/2025 9:22 AM [facility] TCSVKDBKYEIHR5793 - 100 fL05/13/2025 9:22 AM [facility] PKIWNVSOHGNPR84.827 - 34 pg05/13/2025 9:22 AM [facility] DCURKHKTGRRZRW82.332 - 36 g/dL05/13/2025 9:22 AM [facility] DQDOCYUEEQSGG99.4(H)11.5 - 15 %05/13/2025 9:22 AM [facility] LABORATORYPlatelet Ukzvo891275 - 450 X10E9/L1 9:22 AM [facility] LABORATORYMPV9.67 - 12 fL05/13/2025 9:22 AM [facility] LABORATORYNeutrophils %70.4%05/13/2025 9:22 AM [facility] LABORATORYLymphocytes %19.8%05/13/2025 9:22 AM [facility] LABORATORYMonocytes %6.1%05/13/2025 9:22 AM [facility] LABORATORYEosinophils %3.1%05/13/2025 9:22 AM [facility] LABORATORYBasophils %0.6%05/13/2025 9:22 AM [facility] LABORATORYNeutrophils Absolute (A)5.81.5 - 6.6 10*3/uL 05/13/2025 9:22 AM [facility] LABORATORYLymphocytes Absolute 1.61.0 - 3.5 10*3/uL05/13/2025 9:22 AM [facility] Monocytes Absolute0.50.0 - 0.9 10*3/uL05/13/2025 9:22 AM [facility] LABORATORYEosinophils Absolute0.30.0 - 0.4 10*3/uL05/13/2025 9:22 AM [facility] LABORATORYBasophils Absolute0.00.0 - 0.2 10*3/uL 05/13/2025 9:22 AM [facility] LABORATORYDifferential Type AUTOMATED NJQASMGQTGRV21/31/2025 9:22 AM [facility] LABORATORYSpecimen (Source)Anatomical Location / LateralityCollection Method / VolumeCollection TimeReceived TimeBloodVenous blood / UnknownVenipuncture / Diejueu7205/13/2025 9:01 AM EDT1 9:11 AM EDT Narrative Authorizing ProviderResult TypeResult StatusAmulya R Dega MDLAB BLOOD ORDERABLES Final ResultPerforming OrganizationAddressCity/State/ZIP CodePhone Number [facility] [address] [place] [address], * (ABNORMAL) Basic Metabolic Panel (05/13/2025 9:01 AM EDT)ComponentValueRef RangeTest MethodAnalysis TimePerformed AtPathologist KsqiiqyzmNHGCUO674419 - 146 mmol/L1 9:37 AM [facility] LABORATORYPOTASSIUM 4.23.5 - 5.0 mmol/L1 9:37 AM [facility] ZNMONHHB52(L)98 - 109 mmol/L1 9:37 AM [facility] LABORATORYCARBON HIUUMMS95(H)22 - 32 mmol/L1 9:37 AM [facility] LABORATORYANION GAP85 - 15 mmol/ 9:37 AM EDT [facility] LABORATORYBLOOD UREA TFLJRWNB09(H)5 - 27 mg/dL 05/13/2025 9:37 AM [facility] LABORATORYCREATININE1.92(H) 0.40 - 1.00 mg/dL05/13/2025 9:37 AM [facility] Comment:METHOD TRACEABLE TO IDMS NSEJPXSOCIGXYAW616(H)65 - 99 mg/dL05/13/2025 9:37 AM [facility] LABORATORYCALCIUM9.88.5 - 10.5 mg/dL 05/13/2025 9:37 AM [facility] LABORATORYEGFR Non-Race Uoqaofine81(L)>=60 ml/min/1.73sq.m1 9:37 AM [facility] LABORATORYComment: Reported eGFR is based on the CKD-EPI 2020 equation that does not use a race coefficient. Specimen (Source)Anatomical Location / LateralityCollection Method / Volume Collection TimeReceived TimeBloodVenous blood / UnknownVenipuncture / Unknown 05/13/2025 9:01 AM EDT1 9:11 AM EDT Narrative Authorizing ProviderResult TypeResult StatusGuy Drummond MDLAB BLOOD ORDERABLES Final ResultPerforming OrganizationAddressCity/State/ZIP CodePhone Number [facility] [address] [place] [address], * Lavender Top On Ice (05/13/2025 9:01 AM EDT)ComponentValueRef RangeTest Method Analysis TimePerformed AtPathologist SignatureExtra TubeAuto Resulted 05/13/2025 10:02 AM [facility] LABORATORYSpecimen (Source) Anatomical Location / LateralityCollection Method / VolumeCollection Time Received TimeBloodVenous blood / UnknownVenipuncture / Ixddkdr8505/13/2025 9:01 AM EDT1 9:11 AM EDT Narrative Authorizing ProviderResult TypeResult StatusGuy Drummond MDLAB BLOOD ORDERABLES Final ResultPerforming OrganizationAddressCity/State/ZIP CodePhone Number [facility] [address] [place] [address], * (ABNORMAL) Bedside Glucose *Place/Obtain serum glucose if >500 per glucometer. (05/13/2025 8:59 AM EDT)ComponentValueRef RangeTest MethodAnalysis Time Performed AtPathologist SignatureBedside Glucose (POC)178(H)65 - 99 mg/dL 05/13/2025 9:04 AM [facility] LABORATORYSpecimen (Source)Anatomical Location / LateralityCollection Method / VolumeCollection TimeReceived Time arterial/uudlzuesg95/31/2025 8:59 AM EDT1 9:04 AM EDT Narrative Authorizing ProviderResult TypeResult StatusGuy Drummond MDPOINT OF CARE TEST ORDERABLESFinal ResultPerforming OrganizationAddressCity/State/ZIP CodePhone Number [facility] [address] [place] [address], [place] * (ABNORMAL) Bedside Glucose *Place/Obtain serum glucose if >500 per glucometer. (05/13/2025 7:32 AM EDT)ComponentValueRef RangeTest MethodAnalysis Time Performed AtPathologist SignatureBedside Glucose (POC)192(H)65 - 99 mg/dL 05/13/2025 7:34 AM [facility] LABORATORYSpecimen (Source)Anatomical Location / LateralityCollection Method / VolumeCollection TimeReceived Time arterial/zlhlyxcqh01/31/2025 7:32 AM EDT1 7:34 AM EDT Narrative Authorizing ProviderResult TypeResult StatusAmulya R Dega MDPOINT OF CARE TEST ORDERABLESFinal ResultPerforming OrganizationAddressCity/State/ZIP CodePhone Number [facility] [address] [place] [address], * Liver panel (05/13/2025 5:32 AM EDT)ComponentValueRef RangeTest MethodAnalysis TimePerformed AtPathologist SignatureTOTAL PROTEIN6.16.0 - 8.0 g/dL05/13/2025 6:28 AM [facility] LABORATORYALBUMIN3.33.2 - 5.3 g/dL 05/13/2025 6:28 AM [facility] LABORATORYBILIRUBIN,TOTAL0.60.3 - 1.2 mg/dL05/13/2025 6:28 AM [facility] LABORATORYALKALINE QYPKIDJKKLH6147 - 130 U/L1 6:28 AM [facility] OSSRDPAVQIZIV33<=41 U/L1 6:28 AM [facility] LABORATORYALT<3<=31 U/L1 6:28 AM [facility] LABORATORYBILIRUBIN,DIRECT0.1<=0.4 mg/dL05/13/2025 6:28 AM [facility] LABORATORYSpecimen (Source)Anatomical Location / LateralityCollection Method / VolumeCollection TimeReceived TimeBloodVenous blood / Unknown Venipuncture / Nmunhrm0605/13/2025 5:32 AM EDT1 5:50 AM EDT Narrative Authorizing ProviderResult TypeResult StatusSwapna Mcnair MDLAB BLOOD ORDERABLESFinal ResultPerforming OrganizationAddressCity/State/ZIP CodePhone Number [facility] [address] [place] [address], * Lavender Top (05/13/2025 5:29 AM EDT)ComponentValueRef RangeTest Method Analysis TimePerformed AtPathologist SignatureExtra TubeAuto Resulted 05/13/2025 7:01 AM [facility] LABORATORYSpecimen (Source) Anatomical Location / LateralityCollection Method / VolumeCollection Time Received TimeBloodVenous blood / Mrqwuhs9805/13/2025 5:29 AM EDT1 5:53 AM EDT Narrative Authorizing ProviderResult TypeResult StatusGuy Drummond MDLAB BLOOD ORDERABLES Final ResultPerforming OrganizationAddressCity/State/ZIP CodePhone Number [facility] [address] [place] [address], * (ABNORMAL) Bedside Glucose *Place/Obtain serum glucose if >500 per glucometer. (05/12/2025 8:16 PM EDT)ComponentValueRef RangeTest MethodAnalysis Time Performed AtPathologist SignatureBedside Glucose (POC)207(H)65 - 99 mg/dL 05/12/2025 8:17 PM [facility] LABORATORYSpecimen (Source)Anatomical Location / LateralityCollection Method / VolumeCollection TimeReceived Time arterial/yqhhjtclv83/30/2025 8:16 PM EDT1 8:17 PM EDT Narrative Authorizing ProviderResult TypeResult StatusGuy Drummond MDPOINT OF CARE TEST ORDERABLESFinal ResultPerforming OrganizationAddressCity/State/ZIP CodePhone Number [facility] [address] [place] [address], [place] * (ABNORMAL) Bedside Glucose *Place/Obtain serum glucose if >500 per glucometer. (05/12/2025 5:00 PM EDT)ComponentValueRef RangeTest MethodAnalysis Time Performed AtPathologist SignatureBedside Glucose (POC)219(H)65 - 99 mg/dL 05/12/2025 5:07 PM [facility] LABORATORYSpecimen (Source)Anatomical Location / LateralityCollection Method / VolumeCollection TimeReceived Time arterial/lworrsbdz37/30/2025 5:00 PM EDT1 5:06 PM EDT Narrative Authorizing ProviderResult TypeResult StatusGuy Drummond MDPOINT OF CARE TEST ORDERABLESFinal ResultPerforming OrganizationAddressCity/State/ZIP CodePhone Number [facility] [address] [place] [place] [address], [place] * X-ray chest 1 view (05/12/2025 12:57 PM EDT)Anatomical RegionLaterality ModalityBody, ChestN/AComputed RadiographySpecimen (Source)Anatomical Location / LateralityCollection Method / VolumeCollection TimeReceived Time05/12/2025 12:59 PM EDT Narrative 05/12/2025 12:59 PM EDT History: monitor if improvement in interstitial edema Exam/Technique: ??AP chest upright Comparison: ??05/08/2025 Findings: ??Sternotomy wires. Congested lungs effusions. IMPRESSION: ??Likely overload state. Low lung volumes. Finalized by Hugo Aquino MD on 05/12/2025 12:59 PM Procedure Note Hugo Aquino MD - 05/12/2025 History: monitor if improvement in interstitial edema Exam/Technique: AP chest upright Comparison: 05/08/2025 Findings: Sternotomy wires. Congested lungs effusions. IMPRESSION: Likely overload state. Low lung volumes. Finalized by Hugo Aquino MD on 05/12/2025 12:59 PM Authorizing ProviderResult TypeResult StatusGuy Drummond MDIMG DIAGNOSTIC IMAGING ORDERABLESFinal Result * (ABNORMAL) Bedside Glucose *Place/Obtain serum glucose if >500 per glucometer. (05/12/2025 12:30PM EDT)ComponentValueRef RangeTest MethodAnalysis Time Performed AtPathologist SignatureBedside Glucose (POC)329(H)65 - 99 mg/dL 05/12/2025 12:33 PM [facility] LABORATORYSpecimen (Source)Anatomical Location / LateralityCollection Method / VolumeCollection TimeReceived Time arterial/bfvlcozuu42/30/2025 12:30 PM EDT1 12:33 PM EDT Narrative Authorizing ProviderResult TypeResult StatusGuy Drummond MDPOINT OF CARE TEST ORDERABLESFinal ResultPerforming OrganizationAddressCity/State/ZIP CodePhone Number [facility] [address] [place] [address], [place] * Lactate w/ Reflex (05/12/2025 11:17 AM EDT)ComponentValueRef RangeTest Method Analysis TimePerformed AtPathologist SignatureLACTATE W/REFLEX1.60.4 - 2.0 mmol/L1 12:03 PM [facility] LABORATORYSpecimen (Source)Anatomical Location / LateralityCollection Method / VolumeCollection TimeReceived TimeBloodVenous blood / UnknownVenipuncture / Bjzyrkj4505/12/2025 11:17 AM EDT1 11:29 AM EDT Narrative [facility] - 05/12/2025 12:03 PM EDT Result did not trigger repeat Lactate, re-order if needed. Authorizing ProviderResult TypeResult StatusGuy Drummond MDLAB BLOOD ORDERABLES Final ResultPerforming OrganizationAddressCity/State/ZIP CodePhone Number [facility] [address] [place] [address], [place] [phone] * (ABNORMAL) Bedside Glucose *Place/Obtain serum glucose if >500 per glucometer. (05/12/2025 9:21 AM EDT)ComponentValueRef RangeTest MethodAnalysis Time Performed AtPathologist SignatureBedside Glucose (POC)246(H)65 - 99 mg/dL 05/12/2025 9:26 AM [facility] LABORATORYSpecimen (Source)Anatomical Location / LateralityCollection Method / VolumeCollection TimeReceived Time arterial//30/2025 9:21 AM EDT1 9:26 AM EDT Narrative Authorizing ProviderResult TypeResult StatusGuy Drummond MDPOINT OF CARE TEST ORDERABLESFinal ResultPerforming OrganizationAddressCity/State/ZIP CodePhone Number [facility] [address] [place] [address], [place] * Nocturnal oximetry study (05/12/2025 7:45 AM EDT) Narrative Authorizing ProviderResult TypeResult StatusMoaldo Couch [facility] CARE ORDERABLESEdited Result - Final * (ABNORMAL) Hemoglobin A1c (05/12/2025 5:54 AM EDT)ComponentValueRef RangeTest MethodAnalysis TimePerformed AtPathologist SignatureHEMOGLOBIN A1C6.3(H)4.4 - 5.6 %05/12/2025 12:00 PM [facility] LABORATORYComment: ?ADA Guidelines ?Result ?HgbA1c ? Normal : ? less than 5.7 % ? Prediabetes : ?5.7 % ??to 6.4 % Diabetes : > 6.4 % ?Use with caution in patients with abnormal hemoglobin variants as ??the half-life of red blood cells and in vivo glycation rates are ??affected. EST. AVERAGE TJIILDM737jn/dL05/12/2025 12:00 PM [facility] LABORATORYSpecimen (Source)Anatomical Location / LateralityCollection Method / VolumeCollection TimeReceived TimeBloodVenous blood / UnknownVenipuncture / Fxfzvhp7805/12/2025 5:54 AM EDT1 5:54 AM EDT Narrative Authorizing ProviderResult TypeResult StatusGuy BARRY BLOOD ORDERABLES Final ResultPerforming OrganizationAddressCity/State/ZIP CodePhone Number [facility] [address] [place] [address], * Magnesium (05/12/2025 5:54 AM EDT)ComponentValueRef RangeTest MethodAnalysis TimePerformed AtPathologist SignatureMAGNESIUM2.11.8 - 2.6 mg/dL05/12/2025 6:42 AM [facility] LABORATORYSpecimen (Source)Anatomical Location / LateralityCollection Method / VolumeCollection TimeReceived Time BloodVenous blood / UnknownVenipuncture / Gagebiu5205/12/2025 5:54 AM EDT 05/12/2025 5:54 AM EDT Narrative Authorizing ProviderResult TypeResult StatusAndre Drake BARRY BLOOD ORDERABLES Final ResultPerforming OrganizationAddressCity/State/ZIP CodePhone Number [facility] [address] [place] [address], * (ABNORMAL) CBC auto differential (05/12/2025 5:54 AM EDT)ComponentValueRef RangeTest MethodAnalysis TimePerformed AtPathologist SignatureWBC8.94 - 11 x10E9/L1 6:20 AM [facility] LABORATORYRBC Count2.84 (L)3.8 - 5.2 X10E12/L1 6:20 AM [facility] Hemoglobin9.1(L)11.7 - 15.5 g/dL05/12/2025 6:20 AM [facility] VAQWAYZZSQClkcmbdqaw64.6(L)35 - 47 %05/12/2025 6:20 AM [facility] SJODIHKGFVJUN0902 - 100 fL05/12/2025 6:20 AM [facility] AQVPMJFNGHUXG41.827 - 34 pg05/12/2025 6:20 AM [facility] QXRNMEDVATJZXQ33.832 - 36 g/dL05/12/2025 6:20 AM [facility] PKXBROYYHZWDX08.2(H)11.5 - 15 %05/12/2025 6:20 AM [facility] LABORATORYPlatelet Jffpc152501 - 450 X10E9/L1 6:20 AM EDT [facility] LABORATORYMPV9.17 - 12 fL05/12/2025 6:20 AM [facility] LABORATORYNeutrophils %70.0%05/12/2025 6:20 AM [facility] LABORATORYLymphocytes %19.4%05/12/2025 6:20 AM [facility] LABORATORYMonocytes %6.9%05/12/2025 6:20 AM [facility] LABORATORYEosinophils %2.9%05/12/2025 6:20 AM [facility] LABORATORYBasophils %0.8%05/12/2025 6:20 AM [facility] LABORATORYNeutrophils Absolute (A)6.31.5 - 6.6 10*3/uL 05/12/2025 6:20 AM [facility] LABORATORYLymphocytes Absolute 1.71.0 - 3.5 10*3/uL05/12/2025 6:20 AM [facility] Monocytes Absolute0.60.0 - 0.9 10*3/uL05/12/2025 6:20 AM [facility] LABORATORYEosinophils Absolute0.30.0 - 0.4 10*3/uL05/12/2025 6:20 AM [facility] LABORATORYBasophils Absolute0.10.0 - 0.2 10*3/uL 05/12/2025 6:20 AM [facility] LABORATORYDifferential Type AUTOMATED ASQAUVOFOJKB63/30/2025 6:20 AM [facility] LABORATORYSpecimen (Source)Anatomical Location / LateralityCollection Method / VolumeCollection TimeReceived TimeBloodVenous blood / UnknownVenipuncture / Uwukfro0505/12/2025 5:54 AM EDT1 5:54 AM EDT Narrative Authorizing ProviderResult TypeResult StatusAndre Drake BARRY BLOOD ORDERABLES Final ResultPerforming OrganizationAddressCity/State/ZIP CodePhone Number [facility] [address] [place] [address], * (ABNORMAL) Basic Metabolic Panel (05/12/2025 5:54 AM EDT)ComponentValueRef RangeTest MethodAnalysis TimePerformed AtPathologist JjicygkeeNMWPVT182481 - 146 mmol/L1 6:42 AM [facility] LABORATORYPOTASSIUM 4.43.5 - 5.0 mmol/L1 6:42 AM [facility] CANXRVYO82(L)98 - 109 mmol/L1 6:42 AM [facility] LABORATORYCARBON PTAXHAW51(H)22 - 32 mmol/L1 6:42 AM [facility] LABORATORYANION YZG120 - 15 mmol/L1 6:42 AM EDT [facility] LABORATORYBLOOD UREA INPAPEBK29(H)5 - 27 mg/dL 05/12/2025 6:42 AM [facility] LABORATORYCREATININE1.87(H)0.40 - 1.00 mg/dL05/12/2025 6:42 AM [facility] LABORATORYComment: METHOD TRACEABLE TO IDMS MQUPLISFUDOSRCQ421(H)65 - 99 mg/dL05/12/2025 6:42 AM [facility] LABORATORYCALCIUM9.28.5 - 10.5 mg/dL05/12/2025 6:42 AM [facility] LABORATORYEGFR Non-Race Procmhfic01(L)>=60 ml/min/1.73sq.m1 6:42 AM [facility] Comment: Reported eGFR is based on the CKD-EPI 2020 equation that does not use a race coefficient. Specimen (Source)Anatomical Location / LateralityCollection Method / Volume Collection TimeReceived TimeBloodVenous blood / UnknownVenipuncture / Unknown 05/12/2025 5:54 AM EDT1 5:54 AM EDT Narrative Authorizing ProviderResult TypeResult StatusAndre Drake BARRY BLOOD ORDERABLES Final ResultPerforming OrganizationAddressCity/State/ZIP CodePhone Number [facility] [address] [place] [address], * (ABNORMAL) Bedside Glucose *Place/Obtain serum glucose if >500 per glucometer. (05/11/2025 8:56 PM EDT)ComponentValueRef RangeTest MethodAnalysis Time Performed AtPathologist SignatureBedside Glucose (POC)296(H)65 - 99 mg/dL 05/11/2025 9:01 PM [facility] LABORATORYSpecimen (Source)Anatomical Location / LateralityCollection Method / VolumeCollection TimeReceived Time arterial/zeynrxooj00/29/2025 8:56 PM EDT1 9:01 PM EDT Narrative Authorizing ProviderResult TypeResult StatusAmulya R Dega MDPOINT OF CARE TEST ORDERABLESFinal ResultPerforming OrganizationAddressty/State/[facility] CodePhone [facility] LABORATORY [address] [place] [address], [place] * (ABNORMAL) Bedside Glucose *Place/Obtain serum glucose if >500 per glucometer. (05/11/2025 5:06 PM EDT)ComponentValueRef RangeTest MethodAnalysis Time Performed AtPathologist SignatureBedside Glucose (POC)234(H)65 - 99 mg/dL 05/11/2025 5:11 PM [facility] LABORATORYSpecimen (Source)Anatomical Location / LateralityCollection Method / VolumeCollection TimeReceived Time arterial/wjbhpcaok67/29/2025 5:06 PM EDT1 5:11 PM EDT Narrative Authorizing ProviderResult TypeResult StatusAmulya R Dega MDPOINT OF CARE TEST ORDERABLESFinal ResultPerforming OrganizationAddress[facility]/State/ZIP CodePhone [facility] LABORATORY [address] [place] [address], [place] * (ABNORMAL) Bedside Glucose *Place/Obtain serum glucose if >500 per glucometer. (05/11/2025 2:12 PM EDT)ComponentValueRef RangeTest MethodAnalysis Time Performed AtPathologist SignatureBedside Glucose (POC)285(H)65 - 99 mg/dL 05/11/2025 3:42 PM [facility] LABORATORYSpecimen (Source)Anatomical Location / LateralityCollection Method / VolumeCollection TimeReceived Time arterial/dyixtxgkk48/29/2025 2:12 PM EDT1 3:42 PM EDT Narrative Authorizing ProviderResult TypeResult StatusAmulya R Dega MDPOINT OF CARE TEST ORDERABLESFinal ResultPerforming OrganizationAddWell[facility]/State/ZIP CodePhone Number [facility] [address] [place] [address], * (ABNORMAL) Bedside Glucose *Place/Obtain serum glucose if >500 per glucometer. (05/11/2025 1:56 PM EDT)ComponentValueRef RangeTest MethodAnalysis Time Performed AtPathologist SignatureBedside Glucose (POC)278(H)65 - 99 mg/dL 05/11/2025 3:42 PM [facility] LABORATORYSpecimen (Source)Anatomical Location / LateralityCollection Method / VolumeCollection TimeReceived Time arterial/jpbojyfgy96/29/2025 1:56 PM EDT1 3:42 PM EDT Narrative Authorizing ProviderResult TypeResult StatusAmazraa R Dega MDPOINT OF CARE TEST ORDERABLESFinal ResultPerforming OrganizationAddressCity/State/ZIP CodePhone Number [facility] [address] [place] [address], [place] * Magnesium (05/11/2025 5:25 AM EDT)ComponentValueRef RangeTest MethodAnalysis TimePerformed AtPathologist SignatureMAGNESIUM2.01.8 - 2.6 mg/dL05/11/2025 6:24 AM [facility] LABORATORYSpecimen (Source)Anatomical Location / LateralityCollection Method / VolumeCollection TimeReceived Time BloodVenous blood / UnknownVenipuncture / Cqwjzbr7805/11/2025 5:25 AM EDT 05/11/2025 5:51 AM EDT Narrative Authorizing ProviderResult TypeResult StatusAndre Drake BARRY BLOOD ORDERABLES Final ResultPerforming OrganizationAddressTr[facility]/State/ZIP CodePhone Number [facility] [address] [place] [address], [place] [phone] * (ABNORMAL) CBC auto differential (05/11/2025 5:25 AM EDT)ComponentValueRef RangeTest MethodAnalysis TimePerformed AtPathologist SignatureWBC9.04 - 11 x10E9/L10/ 6:05 AM [facility] LABORATORYRBC Count2.73 (L)3.8 - 5.2 X10E12/L1 6:05 AM [facility] Hemoglobin8.7(L)11.7 - 15.5 g/dL05/11/2025 6:05 AM [facility] UBLYDRBWLDOjqbaqmemb64.3(L)35 - 47 %05/11/2025 6:05 AM [facility] VLYLSSDHOIORY0089 - 100 fL05/11/2025 6:05 AM [facility] IQYTAHVEDHAOU41.827 - 34 pg05/11/2025 6:05 AM [facility] FITBCTRIJZJFDJ61.032 - 36 g/dL05/11/2025 6:05 AM [facility] WKEWVIUDSIGCN11.9(H)11.5 - 15 %05/11/2025 6:05 AM [facility] LABORATORYPlatelet Edaky614255 - 450 X10E9/L1 6:05 AM [facility] LABORATORYMPV8.97 - 12 fL05/11/2025 6:05 AM [facility] LABORATORYNeutrophils %67.5%05/11/2025 6:05 AM [facility] LABORATORYLymphocytes %19.8%05/11/2025 6:05 AM [facility] LABORATORYMonocytes %8.8%05/11/2025 6:05 AM [facility] LABORATORYEosinophils %2.7%05/11/2025 6:05 AM [facility] LABORATORYBasophils %1.2%05/11/2025 6:05 AM [facility] LABORATORYNeutrophils Absolute (A)6.11.5 - 6.6 10*3/uL 05/11/2025 6:05 AM [facility] LABORATORYLymphocytes Absolute 1.81.0 - 3.5 10*3/uL05/11/2025 6:05 AM [facility] Monocytes Absolute0.80.0 - 0.9 10*3/uL05/11/2025 6:05 AM [facility] LABORATORYEosinophils Absolute0.20.0 - 0.4 10*3/uL05/11/2025 6:05 AM [facility] LABORATORYBasophils Absolute0.10.0 - 0.2 10*3/uL 05/11/2025 6:05 AM [facility] LABORATORYDifferential Type AUTOMATED HCNGSRBDUGVM24/29/2025 6:05 AM [facility] LABORATORYSpecimen (Source)Anatomical Location / LateralityCollection Method / VolumeCollection TimeReceived TimeBloodVenous blood / UnknownVenipuncture / Kkxpmjp0605/11/2025 5:25 AM EDT1 5:51 AM EDT Narrative Authorizing ProviderResult TypeResult StatusAndre Drake BARRY BLOOD ORDERABLES Final ResultPerforming OrganizationAddressCity/State/ZIP CodePhone Number [facility] [address] [place] [address], * (ABNORMAL) Basic Metabolic Panel (05/11/2025 5:25 AM EDT)ComponentValueRef RangeTest MethodAnalysis TimePerformed AtPathologist HghliyhmtAHTGDS851076 - 146 mmol/L1 6:24 AM [facility] LABORATORYPOTASSIUM 3.93.5 - 5.0 mmol/L1 6:24 AM [facility] JCKSLRPN31(L)98 - 109 mmol/L1 6:24 AM [facility] LABORATORYCARBON CLKQCFN37(H)22 - 32 mmol/L1 6:24 AM [facility] LABORATORYANION GAP95 - 15 mmol/L1 6:24 AM EDT [facility] LABORATORYBLOOD UREA FMGTAKLF15(H)5 - 27 mg/dL 05/11/2025 6:24 AM [facility] LABORATORYCREATININE2.00(H)0.40 - 1.00 mg/dL05/11/2025 6:24 AM [facility] LABORATORYComment: METHOD TRACEABLE TO IDMS HAFYSYVUPSQGWJS421(H)65 - 99 mg/dL05/11/2025 6:24 AM [facility] LABORATORYCALCIUM8.98.5 - 10.5 mg/dL05/11/2025 6:24 AM [facility] LABORATORYEGFR Non-Race Hvvonlqfy93(L)>=60 ml/min/1.73sq.m1 6:24 AM [facility] Comment: Reported eGFR is based on the CKD-EPI 2020 equation that does not use a race coefficient. Specimen (Source)Anatomical Location / LateralityCollection Method / Volume Collection TimeReceived TimeBloodVenous blood / UnknownVenipuncture / Unknown 05/11/2025 5:25 AM EDT1 5:51 AM EDT Narrative Authorizing ProviderResult TypeResult StatusAndre Drake [facility] BLOOD ORDERABLES Final ResultPerforming OrganizationAddressCity/State/ZIP CodePhone Number [facility] [address] [place] [address], * Echo complete W/ contrast (05/10/2025 9:42 AM EDT)ComponentValueRef RangeTest MethodAnalysis TimePerformed AtPathologist SignatureLVOT stroke dlesng13.53ml LSVEIDBBN4814 - 44 %XCELERALVIDd4.704.07 - 5.65 cmXCELERALVIDs3.302.41 - 3.65 cmXCELERAIVS1.400.6 - 1.1 cmXCELERAPW0.900.6 - 1.1 cmXCELERALVOT diameter2.10 cmXCELERATDI6.96cm/sXCELERAMV TDI E' (medial)3.48cm/sXCELERALA Volume Index 31.6mL/v9ZOEAJZTN/A ratio1.17XCELERAE wave deceleration erpi245.00msecXCELERA MV Peak E Ord914.00cm/sXCELERAMV Peak A Liz228.00cm/sXCELERALA size4.50cm XCELERAAortic root3.80cmXCELERALA zsrupi85.13vw6IPTZEEEWZ diastolic dimension (basal)29.9nvKZOESBGTBACK2.06cmXCELERAAV peak gwc633.00cm/sXCELERALVOT peak vel0.87m/sXCELERAAV VTI44.60cmXCELERALVOT peak VTI16.90cmXCELERAAV mean gradient7.00mmHgXCELERAAV peak aetrfyqi59.02mmHgXCELERAAV valve area1.31 XCELERAValve area - Index0.7XCELERAMV mean gradient5.00mmHgXCELERAMV peak gradient9.24mmHgXCELERAMV VTI38.10cmXCELERAMV valve area by continuity eq1.54 XCELERAMV pressure 1/2 time40.00msXCELERAMV valve area p 1/2 method5.50cm2 XCELERATR Peak Vel3.3m/sXCELERATR peak ewwpfqin04.82mmHgXCELERAPV peak gradient2.23mmHgXCELERALV ESV A2C56.70mLXCELERALV ESV A4C52.90mLXCELERAMitral Valve Max Velocity1.52cm/sXCELERALV RWT 2D38.30XCELERAAV Velocity Ratio0.38 XCELERALeft Ventricle Eqwi111.530603169417249vPRQKNQMPgalmqdjzspmhhkn Septum Diastolic Thickness by 5K31ciCQTJDYJWvd. RA wjaabldb8keTxRCFLRYXJK Peak Systolic Dctcqfvo70vlSqURBFUGVSN area11.0sf0OSNTHYOAILGPT0.84XCELERAZLVIDD -0.20XCELERAEnergy loss index19.61XCELERAAnatomical RegionLateralityModality ChestN/AUltrasoundSpecimen (Source)Anatomical Location / LateralityCollection Method / VolumeCollection TimeReceived Time Narrative 05/10/2025 11:01 AM EDT Left Ventricle: Left ventricle appears normal in size. There is moderate focal basal increased wall thickness/hypertrophy. Remaining wall segments are normal. Systolic function is mildly to moderately decreased with an ejection fraction of 40-45%. ?Right??Ventricle: Right ventricular size appears normal. Systolic function is low normal. ?Left??Atrium: Left atrium is mildly dilated. Left atrium volume index is mildly increased. The left atrial volume index is 31.6 mL/m2. ?Mitral??Valve: There is mild to moderate regurgitation. There is mild stenosis. The mean gradient is 5.00 mmHg. The peak gradient is 9.24 mmHg. ?Tricuspid??Valve: There is mild to moderate regurgitation. The right ventricular systolic pressure is mildly elevated. RVSP calculated at 46 mmHg. Left Ventricle Left ventricle appears normal in size. There is moderate focal basal increased wall thickness/hypertrophy. Remaining wall segments are normal. Systolic function is mildly to moderately decreased withan ejection fraction of 40-45%. See wall score diagram for wall motion abnormalities. Lateral E' is6.96 cm/s. Medial E' is 3.48 cm/s. Right Ventricle Right ventricular size appears normal. The right ventricular basal diameter is 29.0 mm. Systolic function is low normal. Abnormal tricuspid annular plane systolic excursion. Left Atrium Left atrium is mildly dilated. Left atrium volume index is mildly increased. The left atrial volumeindex is 31.6 mL/m2. Right Atrium Right atrium is normal in size. The right atrial area is 11.9 cm2. IVC/SVC The right atrial pressure is estimated at 3 mmHg. Mitral Valve The leaflets are mildly thickened. There is mild to moderate regurgitation. There is mild stenosis.The mean gradient is 5.00 mmHg. The peak gradient is 9.24 mmHg. Tricuspid Valve Tricuspid valve appears to be normal. There is mild to moderate regurgitation. There is no evidenceof tricuspid valve stenosis. The right ventricular systolic pressure is mildly elevated. RVSP calculated at 46 mmHg. RVSP is based on RA pressure of 3 mmHg. There is mild pulmonary hypertension. Aortic Valve The aortic valve is trileaflet. The leaflets are mildly thickened. There is no regurgitation or stenosis. Pulmonic Valve Pulmonic valve structure is grossly normal. There is trace regurgitation. There is no evidence of pulmonic valve stenosis. The peak gradient is 2.23 mmHg. Ascending Aorta The aortic root is mildly dilated. Pericardium There is no pericardial effusion. Study Details A complete echo was performed using complete 2D, color flow Doppler and spectral Doppler. During the study the apical, parasternal and subcostal views were captured. Definity study was performed. Overall the study quality was adequate. Wall Scoring Baseline Score Index: 2.00 The left ventricular wall motion is globally hypokinetic. Authorizing ProviderResult TypeResult StatusGustavo Enriquez [facility] ECHO ORDERABLES Final Result * (ABNORMAL) Blood Gas, Arterial (05/10/2025 9:09 AM EDT)ComponentValueRef Range Test MethodAnalysis TimePerformed AtPathologist SignatureSample typeARTERIAL 05/10/2025 9:12 AM [facility] LABORATORYpH, Arterial7.4457.350 - 7.450 05/10/2025 9:12 AM [facility] LABORATORYpCO2, Qbwmeydu69.9(H)35.0 - 45.0 mmHg05/10/2025 9:12 AM [facility] LABORATORYPO2, Tykbzjoy7788 - 100 mmHg05/10/2025 9:12 AM [facility] LABORATORYBase, Zasjrb60.0(H)0.0 - 2.0 mmol/L1 9:12 AM [facility] LABORATORYHCO3, Qnvgzlvq33.5 (H)22.0 - 26.0 mmol/L1 9:12 AM [facility]ORATORY%O2 Saturation, Uzwskxmi39.0>90.0 %05/10/2025 9:12 AM [facility] LABORATORYAllen's vwlpScjo53/28/2025 9:12 AM [facility] LABORATORYSPO2 100%05/10/2025 9:12 AM [facility] LABORATORYSample siteR Rad05/10/2025 9:12 AM [facility] LABORATORYInsp. O2 conc.28%05/10/2025 9:12 AM EDT [facility] LABORATORYSource Of VhkxajIP97/28/2025 9:12 AM [facility] LABORATORYSpecimen (Source)Anatomical Location / LateralityCollection Method / VolumeCollection TimeReceived Timearterial (Blood, Arterial) 05/10/2025 9:09 AM EDT1 9:12 AM EDT Narrative Authorizing ProviderResult TypeResult StatusAmhossein BARRY BLOOD ORDERABLES Final ResultPerforming OrganizationAddressCity/State/ZIP CodePhone Number [facility] [address] [place] [address], [place] * Vas venous duplex lwr bilateral (05/10/2025 9:02 AM EDT)Anatomical Region LateralityModalityVascularBilateralUltrasoundSpecimen (Source)Anatomical Location / LateralityCollection Method / VolumeCollection TimeReceived Time 05/10/2025 9:07 AM EDT Narrative 05/10/2025 9:22 AM EDT Right: Portable lower extremity deep vein thrombosis (DVT) exam performed. Common femoral, femoral, popliteal and deep calf muscle veins are compressible without intraluminal content. Spontaneous, common femoral, femoral and popliteal spectral Doppler signals. Evaluation of superficial veins was not performed. Left: Portable lower extremity deep vein thrombosis (DVT) exam performed. Common femoral, femoral, popliteal and deep calf muscle veins are compressible without intraluminal content. Spontaneous, common femoral, femoral and popliteal spectral Doppler signals. Evaluation of superficial veins was not performed. Conclusions: BILATERAL:NO EVIDENCE of deep vein thrombosis of the lower extremity as stated above. ??Evaluation of superficial veins was not performed. Recommendations: Any questions prior to finalization, please call the reading physician during normal business hours at the phone number beside their name. Procedure Note Dana Cates DO - 05/10/2025 Right: Portable lower extremity deep vein thrombosis (DVT) exam performed.Common femoral, femoral, popliteal and deep calf muscle veins arecompressible without intraluminal content. Spontaneous, common femoral,femoral and popliteal spectral Doppler signals. Evaluation of superficial veins was not performed. Left: Portable lower extremity deep vein thrombosis (DVT) exam performed.Common femoral, femoral, popliteal and deep calf muscle veins arecompressible without intraluminal content. Spontaneous, common femoral,femoral and popliteal spectral Doppler signals. Evaluation of superficial veins was not performed. Conclusions: BILATERAL:NO EVIDENCE of deep vein thrombosis of the lowerextremity as stated above. Evaluation of superficial veins was notperformed. Recommendations: Any questions prior to finalization, please call thereading physician during normal business hours at the phone number besidetheir name. Authorizing ProviderResult TypeResult StatusMohammad Taleb MDCV VASCULAR ORDERABLESFinal Result * Magnesium (05/10/2025 5:48 AM EDT)ComponentValueRef RangeTest MethodAnalysis TimePerformed AtPathologist SignatureMAGNESIUM2.01.8 - 2.6 mg/dL05/10/2025 6:30 AM [facility] LABORATORYSpecimen (Source)Anatomical Location / LateralityCollection Method / VolumeCollection TimeReceived Time BloodVenous blood / UnknownVenipuncture / Muuocmc4305/10/2025 5:48 AM EDT 05/10/2025 5:59 AM EDT Narrative Authorizing ProviderResult TypeResult StatusAndre Drake BARRY BLOOD ORDERABLES Final ResultPerforming OrganizationAddressCity/State/ZIP CodePhone Number [facility] [address] [place] [id number], * (ABNORMAL) CBC auto differential (05/10/2025 5:48 AM EDT)ComponentValueRef RangeTest MethodAnalysis TimePerformed AtPathologist SignatureWBC7.74 - 11 x10E9/L1 6:12 AM [facility] LABORATORYRBC Count2.73 (L)3.8 - 5.2 X10E12/L1 6:12 AM [facility] Hemoglobin8.7(L)11.7 - 15.5 g/dL05/10/2025 6:12 AM [facility] ZVNBFYMSSSFlckfcniqt04.3(L)35 - 47 %05/10/2025 6:12 AM [facility] GSMQKUZBBKLWS9502 - 100 fL05/10/2025 6:12 AM [facility] EFUWIXOHEUCLU72.727 - 34 pg05/10/2025 6:12 AM [facility] IIZOMTWQUKMUSV68.032 - 36 g/dL05/10/2025 6:12 AM [facility] PGVNOEOQRNJFL00.5(H)11.5 - 15 %05/10/2025 6:12 AM [facility] LABORATORYPlatelet Klmze111311 - 450 X10E9/L1 6:12 AM EDT [facility] LABORATORYMPV8.97 - 12 fL05/10/2025 6:12 AM [facility] LABORATORYNeutrophils %69.6%05/10/2025 6:12 AM [facility] LABORATORYLymphocytes %18.3%05/10/2025 6:12 AM [facility] LABORATORYMonocytes %9.2%05/10/2025 6:12 AM [facility] LABORATORYEosinophils %1.8%05/10/2025 6:12 AM [facility] LABORATORYBasophils %1.1%05/10/2025 6:12 AM [facility] LABORATORYNeutrophils Absolute (A)5.41.5 - 6.6 10*3/uL 05/10/2025 6:12 AM [facility] LABORATORYLymphocytes Absolute 1.41.0 - 3.5 10*3/uL05/10/2025 6:12 AM [facility] Monocytes Absolute0.70.0 - 0.9 10*3/uL05/10/2025 6:12 AM [facility] LABORATORYEosinophils Absolute0.10.0 - 0.4 10*3/uL05/10/2025 6:12 AM [facility] LABORATORYBasophils Absolute0.10.0 - 0.2 10*3/uL 05/10/2025 6:12 AM [facility] LABORATORYDifferential Type AUTOMATED JZDWFLSOXWSO22/28/2025 6:12 AM [facility] LABORATORYSpecimen (Source)Anatomical Location / LateralityCollection Method / VolumeCollection TimeReceived TimeBloodVenous blood / UnknownVenipuncture / Ukshfzw6105/10/2025 5:48 AM EDT1 5:59 AM EDT Narrative Authorizing ProviderResult TypeResult StatusAndre Drake BARRY BLOOD ORDERABLES Final ResultPerforming OrganizationAddressCity/State/ZIP CodePhone Number [facility] [address] [place] [address], * (ABNORMAL) Basic Metabolic Panel (05/10/2025 5:48 AM EDT)ComponentValueRef RangeTest MethodAnalysis TimePerformed AtPathologist EyvgmwyabRBZRKN779265 - 146 mmol/L1 6:30 AM [facility] LABORATORYPOTASSIUM 4.13.5 - 5.0 mmol/L1 6:30 AM [facility] RPMVIZTH15(L)98 - 109 mmol/L1 6:30 AM [facility] LABORATORYCARBON QDLTPWH90(H)22 - 32 mmol/L1 6:30 AM [facility] LABORATORYANION GAP95 - 15 mmol/L1 6:30 AM EDT [facility] LABORATORYBLOOD UREA SMOTPFVR94(H)5 - 27 mg/dL 05/10/2025 6:30 AM [facility] LABORATORYCREATININE1.90(H)0.40 - 1.00 mg/dL05/10/2025 6:30 AM [facility] LABORATORYComment: METHOD TRACEABLE TO IDMS TVZRNLPJOOKCVPR751(H)65 - 99 mg/dL05/10/2025 6:30 AM [facility] LABORATORYCALCIUM9.18.5 - 10.5 mg/dL05/10/2025 6:30 AM [facility]ORYEGFR Non-Race Gdlltulgm33(L)>=60 ml/min/1.73sq.m1 6:30 AM [facility] Comment: Reported eGFR is based on the CKD-EPI 2020 equation that does not use a race coefficient. Specimen (Source)Anatomical Location / LateralityCollection Method / Volume Collection TimeReceived TimeBloodVenous blood / UnknownVenipuncture / Unknown 05/10/2025 5:48 AM EDT1 5:59 AM EDT Narrative Authorizing ProviderResult TypeResult StatusAndre Drake BARRY BLOOD ORDERABLES Final ResultPerforming OrganizationAddressCity/State/ZIP CodePhone Number [facility] [address] [place] [address], * (ABNORMAL) Urine Culture Urine, Indwelling Catheter (05/09/2025 11:14 PM EDT) ComponentValueRef RangeTest MethodAnalysis TimePerformed AtPathologist SignatureCULTURE RESULTS>100,000 CFU/mL Siobhan glabrata(A)05/18/2025 9:40 AM [facility] LABORATORYCULTURE TUNLZSU15,000-50,000 CFU/mL Vancomycin resistant Enterococcus faecium(A)05/18/2025 9:40 AM [facility] LABORATORYComment: Ampicillin or Amoxicillin is the drug of choice for uncomplicated cystitis caused by enterococci. Cephalosporins are inappropriate. Specimen (Source)Anatomical Location / LateralityCollection Method / Volume Collection TimeReceived TimeUrine (Urine, Indwelling Catheter)05/09/2025 11:14 PM EDT1 11:28 PM EDT Narrative [facility] - 05/18/2025 9:40 AM EST Urine received without preservative - delays in transport may affect results. Interpret with caution and clinical correlation is recommended. OrganismAntibioticMethodSusceptibilityVancomycin resistant Enterococcus faecium Daptomycin 3: Susceptible (dose dependent) Comment:This is a corrected result. Previous result was Susceptible on 05/15/2025 at 1304 ESTVancomycin resistant Enterococcus faeciumAmpicillin >=32.0: Resistant Vancomycin resistant Enterococcus faeciumLevofloxacin >=8.0: Resistant Vancomycin resistant Enterococcus faeciumLinezolid 2.0: Susceptible Vancomycin resistant Enterococcus faeciumNitrofurantoin 64: Intermediate Vancomycin resistant Enterococcus faeciumVancomycin >=32.0: Resistant Vancomycin resistant Enterococcus faeciumSusceptibility CommentAuthorizing ProviderResult TypeResult StatusAidin Pranay MDMICROBIOLOGY - GENERAL ORDERABLES Edited Result - FinalPerforming OrganizationAddressCity/State/ZIP CodePhone Number [facility] [address] [place] [address], * Urine Creatinine,random (05/09/2025 11:14 PM EDT)ComponentValueRef RangeTest MethodAnalysis TimePerformed AtPathologist SignatureURINE CREATININE,RDM50.82 mg/dL05/10/2025 12:04 AM [facility] LABORATORYSpecimen (Source)Anatomical Location / LateralityCollection Method / VolumeCollection TimeReceived TimeUrine (Urine, Indwelling Catheter)05/09/2025 11:14 PM EDT 05/09/2025 11:28 PM EDT Narrative Authorizing ProviderResult TypeResult StatusRamy Lee Enriquez MDURINE ORDERABLESFinal ResultPerforming OrganizationAddressCity/State/ZIP CodePhone Number [facility] [address] [place] [address], * (ABNORMAL) Urine protein creatinine ratio (05/09/2025 11:14 PM EDT)Component ValueRef RangeTest MethodAnalysis TimePerformed AtPathologist SignatureURINE PROTEIN, RANDOM (MG/L)1,090(H)<120 mg/L1 12:04 AM [facility] LABORATORYURINE CREATININE,RDM50.82mg/dL05/10/2025 12:04 AM [facility] LABORATORYU/PRO/MANAGER HOUSE RATIO CALC2.14(H)<=0. 12:04 AM [facility] LABORATORYSpecimen (Source)Anatomical Location / LateralityCollection Method / VolumeCollection TimeReceived TimeUrine (Urine, Indwelling Catheter)05/09/2025 11:14 PM EDT1 11:28 PM EDT Narrative [facility] - 05/10/2025 12:04 AM EDT Nephrotic Syndrome is associated with ratios >3.5 Authorizing ProviderResult TypeResult StatusVidhit Lenora DOURINE ORDERABLESFinal ResultPerforming OrganizationAddressCity/State/ZIP CodePhone Number [facility] [address] [place] [address], * (ABNORMAL) Urinalysis (05/09/2025 11:14 PM EDT)ComponentValueRef RangeTest MethodAnalysis TimePerformed AtPathologist SignatureCOLORYellowYellow 05/10/2025 12:15 AM [facility] LABORATORYTURBIDITYHazy(A) Clear05/10/2025 12:15 AM [facility] LABORATORYSPECIFIC GRAVITY1.0131.003 - 1.3286405/10/2025 12:15 AM [facility] TSDPYHWFBGZGUETKZLpdnkteyMzbzfazv11/28/2025 12:15 AM [facility] LABORATORYPH,URINE6.05.0 - 8.510 12:15 AM [facility] LABORATORYLEUKOCYTE ESTERASELarge(A)Mmvozbjd88/28/2025 12:15 AM [facility] TEDIRFPSNWWYSWHVE14 mg/dL(A)Gbmznmhq66/28/2025 12:15 AM [facility] LABORATORYKETONES (URINE)NegativeNegative 05/10/2025 12:15 AM [facility] LABORATORYUROBILINOGEN<1.1 eu/dL<1.1 eu/dL05/10/2025 12:15 AM [facility] BILIRUBIN (URINE)CgyzigibMnnsoqdf21/28/2025 12:15 AM [facility] LABORATORYBLOOD/EEIUtdeeuptBwmtejyj72/28/2025 12:15 AM [facility] LABORATORYHYALINE CASTS6(H)0 - 12:15 AM [facility] LABORATORYMUCOUSPresent(A)None05/10/2025 12:15 AM [facility] LABORATORYR.B.CELLS20 - 12:15 AM [facility] LABORATORYSQUAMOUS YBPXPDHICB22 - 12:15 AM [facility] LABORATORYW.B.CELLS75(H)0 - 12:15 AM [facility] LABORATORYGLUCOSE (URINE)NegativeNegative 05/10/2025 12:15 AM [facility] LABORATORYSpecimen (Source) Anatomical Location / LateralityCollection Method / VolumeCollection Time Received TimeUrine (Urine, Indwelling Catheter)05/09/2025 11:14 PM EDT 05/09/2025 11:28 PM EDT Narrative Authorizing ProviderResult TypeResult StatusVidhit Lenora DOURINE ORDERABLESFinal ResultPerforming OrganizationAddressCity/State/ZIP CodePhone Number [facility] [address] [place] [address], * Sodium, urine, random (05/09/2025 11:14 PM EDT)ComponentValueRef RangeTest MethodAnalysis TimePerformed AtPathologist SignatureURINE SODIUM,MGZMIF63 mmol/L1 12:55 AM [facility] LABORATORYSpecimen (Source)Anatomical Location / LateralityCollection Method / VolumeCollection TimeReceived TimeUrine (Urine, Indwelling Catheter)05/09/2025 11:14 PM EDT 05/09/2025 11:28 PM EDT Narrative Authorizing ProviderResult TypeResult StatusVidhit Lenora DOURINE ORDERABLESFinal ResultPerforming OrganizationAddressCity/State/ZIP CodePhone Number [facility] [address] [place] [address], * (ABNORMAL) Blood gas, venous (05/09/2025 3:14 PM EDT)ComponentValueRef Range Test MethodAnalysis TimePerformed AtPathologist SignatureSample typeVENOUS 05/09/2025 3:16 PM [facility] LABORATORYpH, Venous7.3747.320 - 7.420 05/09/2025 3:16 PM [facility] LABORATORYpCO2, Hboyyq55.1(H)35.0 - 50.0 mmHg05/09/2025 3:16 PM [facility] LABORATORYpO2, Odgezd5483 - 50 mmHg 05/09/2025 3:16 PM [facility] LABORATORYBase, Uigbru37.0(H)0.0 - 2.0 mmol/L1 3:16 PM [facility] LABORATORYHCO3, Zecgzc00.3(H)20.0 - 24.0 mmol/L1 3:16 PM [facility]%O2 Saturation, Byxwat62.0%05/09/2025 3:16 PM [facility] LABORATORYAllen's testN/A 05/09/2025 3:16 PM [facility] EWDAUSNJLQUSN113%05/09/2025 3:16 PM EDT [facility] LABORATORYSample siteN/A1 3:16 PM [facility] LABORATORYInsp. O2 conc.40%05/09/2025 3:16 PM [facility] Source Of BkwzlyNEQZ83/27/2025 3:16 PM [facility] LABORATORYSpecimen (Source)Anatomical Location / LateralityCollection Method / VolumeCollection TimeReceived TimevenousVenous blood / Tyslwbx7205/09/2025 3:14 PM EDT1 3:16 PM EDT Narrative Authorizing ProviderResult TypeResult StatusAndre Drake MARLOWLAB BLOOD ORDERABLES Final ResultPerforming OrganizationAddressCity/State/ZIP CodePhone Number [facility] [address] [place] [address], [place] * Cytoplasmic Neutrophilic Ab (ANCA), S (05/09/2025 11:53 AM EDT)ComponentValue Ref RangeTest MethodAnalysis TimePerformed AtPathologist SignatureC-ANCA PgcdntgqGimqyhqg52/28/2025 2:51 PM [facility]ORATORIESP-ANCANegative Vuksinpb04/28/2025 2:51 PM [facility] LABORATORIESComment: Negative for cANCA and pANCA patterns by immunofluorescence. ADDITIONAL INFORMATION This test was developed and its performance characteristics determined by [facility] in a manner consistent with CLIA requirements. This test has not been cleared or approved by the U.S. Food and Drug Administration. Test Performed by: [facility] [place] [id number] [place] [address] Office Services Assistant: Florence Shukla Ph.D.; CLIA# [id number] Specimen (Source)Anatomical Location / LateralityCollection Method / Volume Collection TimeReceived TimeBloodVenous blood / UnknownVenipuncture / Unknown 05/09/2025 11:53 AM EDT1 12:32 PM EDT Narrative Authorizing ProviderResult TypeResult StatusVidhit Lenora DOLAB BLOOD ORDERABLES Final ResultPerforming OrganizationAddressCity/State/ZIP CodePhone Number [facility] [address] [place] [address], [place] * Folate (05/09/2025 11:52 AM EDT)ComponentValueRef RangeTest MethodAnalysis TimePerformed AtPathologist SignatureFOLIC ACID22.1>5.8 ng/mL05/09/2025 3:13 PM [facility] LABORATORYSpecimen (Source)Anatomical Location / LateralityCollection Method / VolumeCollection TimeReceived TimeBloodVenous blood / UnknownVenipuncture / Mrxqjmq8105/09/2025 11:52 AM EDT1 12:32 PM EDT Narrative Authorizing ProviderResult TypeResult StatusRamy Lee BARRY BLOOD ORDERABLES Final ResultPerforming OrganizationAddressCity/State/ZIP CodePhone Number [facility] [address] [place] [address], * Vitamin B12 (05/09/2025 11:52 AM EDT)ComponentValueRef RangeTest Method Analysis TimePerformed AtPathologist SignatureVITAMIN [id number] - 914 pg/mL 05/09/2025 3:14 PM [facility] LABORATORYSpecimen (Source) Anatomical Location / LateralityCollection Method / VolumeCollection Time Received TimeBloodVenous blood / UnknownVenipuncture / Eloslik9505/09/2025 11:52 AM EDT1 12:32 PM EDT Narrative Authorizing ProviderResult TypeResult StatusRamy Lee BARRY BLOOD ORDERABLES Final ResultPerforming OrganizationAddressCity/State/ZIP CodePhone Number [facility] [address] [place] [address], [place] [phone] * Ferritin (05/09/2025 11:52 AM EDT)ComponentValueRef RangeTest MethodAnalysis TimePerformed AtPathologist SqhzzsppqGMOOIKLQ08041 - 307 ng/mL05/09/2025 3:10 PM [facility] LABORATORYSpecimen (Source)Anatomical Location / LateralityCollection Method / VolumeCollection TimeReceived TimeBloodVenous blood / UnknownVenipuncture / Mqvgjsg5905/09/2025 11:52 AM EDT1 12:32 PM EDT Narrative Authorizing ProviderResult TypeResult StatusRamy Lee BARRY BLOOD ORDERABLES Final ResultPerforming OrganizationAddressCity/State/ZIP CodePhone Number [facility] [address] [place] [address], * (ABNORMAL) Iron and TIBC (05/09/2025 11:52 AM EDT)ComponentValueRef RangeTest MethodAnalysis TimePerformed AtPathologist YcdoivmlmBUIH0088 - 170 ug/dL 05/09/2025 3:15 PM [facility] WDSDKFJUSKAAWLHNBWQJV980043 - 336 mg/dL05/09/2025 3:15 PM [facility] LABORATORYIRON BINDING 237(L)250 - 425 ug/dL05/09/2025 3:15 PM [facility] IRON IOBRMGJWZO1298 - 50 % IHQFDZXBIU64/27/2025 3:15 PM [facility] LABORATORYSpecimen (Source)Anatomical Location / LateralityCollection Method / VolumeCollection TimeReceived TimeBloodVenous blood / Unknown Venipuncture / Ihrgjnf9105/09/2025 11:52 AM EDT1 12:32 PM EDT Narrative Authorizing ProviderResult TypeResult StatusRamy Lee BARRY BLOOD ORDERABLES Final ResultPerforming OrganizationAddressCity/State/ZIP CodePhone Number [facility] [address] [place] [address], * VIVEK Screen w/ Reflex (05/09/2025 11:52 AM EDT)ComponentValueRef RangeTest MethodAnalysis TimePerformed AtPathologist SignatureANA SCREEN W/REFLEX UhygniuiKuanpwzt29/27/2025 4:35 PM [facility] Specimen (Source)Anatomical Location / LateralityCollection Method / Volume Collection TimeReceived TimeBloodVenous blood / UnknownVenipuncture / Unknown 05/09/2025 11:52 AM EDT1 12:32 PM EDT Narrative [facility] - 05/09/2025 4:35 PM EDT Testing performed using multiplex flow immunoassay. Eleven difference antigens associated with systemic autoimmunie diseases (dsDNA, Sm, Sm/HEAD SOFT SUGAR OPERATOR, HEAD SOFT SUGAR OPERATOR, Chromatin, SSA, SSB, Mary-1, Sc170, Ribo P, Centromere B) are included in this sreening tests. Authorizing ProviderResult TypeResult StatusRamy Lee BARRY BLOOD ORDERABLES Final ResultPerforming OrganizationAddressCity/State/ZIP CodePhone Number [facility] [address] [place] [address], * (ABNORMAL) CK Total (05/09/2025 11:52 AM EDT)ComponentValueRef RangeTest MethodAnalysis TimePerformed AtPathologist EdawqbxebRXP05(L)24 - 170 U/L 05/09/2025 3:15 PM [facility] LABORATORYSpecimen (Source) Anatomical Location / LateralityCollection Method / VolumeCollection Time Received TimeBloodVenous blood / UnknownVenipuncture / Mfylxsq2005/09/2025 11:52 AM EDT1 12:32 PM EDT Narrative Authorizing ProviderResult TypeResult StatusRamy Lee Enriquez MDSRIRAM BLOOD ORDERABLES Final ResultPerforming OrganizationAddressCity/State/ZIP CodePhone Number [facility]. [address] [address], * Glomerular basement membrane IgG AB (05/09/2025 11:52 AM EDT)ComponentValueRef RangeTest MethodAnalysis TimePerformed AtPathologist SignatureGBM IGG AB<0.2 <1.0 AI05/09/2025 4:36 PM [facility] LABORATORYSpecimen (Source)Anatomical Location / LateralityCollection Method / VolumeCollection TimeReceived TimeBloodVenous blood / UnknownVenipuncture / Xracgxu9405/09/2025 11:52 AM EDT1 12:32 PM EDT Narrative Authorizing ProviderResult TypeResult StatusVidhit Lenora DOLAB BLOOD ORDERABLES Final ResultPerforming OrganizationAddressCity/State/ZIP CodePhone Number [facility] [address] [place] [address] [address] [place] [address], * Proteinase 3 AB PR3 (05/09/2025 11:52 AM EDT)ComponentValueRef RangeTest MethodAnalysis TimePerformed AtPathologist SignaturePROTEINASE 3 IGG AB<0.2 <1.0 AI05/09/2025 4:36 PM [facility] LABORATORYSpecimen (Source)Anatomical Location / LateralityCollection Method / VolumeCollection TimeReceived TimeBloodVenous blood / UnknownVenipuncture / Hgmnacs0405/09/2025 11:52 AM EDT1 12:32 PM EDT Narrative Authorizing ProviderResult TypeResult StatusVidhit Lenora DOLAB BLOOD ORDERABLES Final ResultPerforming OrganizationAddressCity/State/ZIP CodePhone Number [facility] [address] [place] [address], * Myeloperoxidase AB (05/09/2025 11:52 AM EDT)ComponentValueRef RangeTest Method Analysis TimePerformed AtPathologist SignatureMYELOPEROXIDASE AB<0.2<1.0 AI 05/09/2025 4:36 PM [facility] LABORATORYSpecimen (Source) Anatomical Location / LateralityCollection Method / VolumeCollection Time Received TimeBloodVenous blood / UnknownVenipuncture / Lguonmz8405/09/2025 11:52 AM EDT1 12:32 PM EDT Narrative Authorizing ProviderResult TypeResult StatusVidhit Lenora DOLAB BLOOD ORDERABLES Final ResultPerforming OrganizationAddressty/State/ZIP CodePhone Number [facility] [address] [place] [address], * (ABNORMAL) Free light chains (05/09/2025 11:52 AM EDT)ComponentValueRef Range Test MethodAnalysis TimePerformed AtPathologist SignatureFREE CJ/LAMBD RATIO 1.540.26 - 1.6505/09/2025 5:17 PM [facility] LABORATORYFREE KAPPA LT CHAINS7.98(H)0.33 - 1.94 mg/dL05/09/2025 5:17 PM [facility] LABORATORYFREE LAMBDA LT CHAINS5.17(H)0.57 - 2.63 mg/dL05/09/2025 5:17 PM [facility] LABORATORYSpecimen (Source)Anatomical Location / LateralityCollection Method / VolumeCollection TimeReceived TimeBloodVenous blood / UnknownVenipuncture / Rxiwnji5605/09/2025 11:52 AM EDT1 12:32 PM EDT Narrative Authorizing ProviderResult TypeResult StatusVidhit Lenora DOLAB BLOOD ORDERABLES Final ResultPerforming OrganizationAddressCity/State/ZIP CodePhone Number [facility] [address] [place] [address], * Complement profile (C3 AND C4) (05/09/2025 11:52 AM EDT)ComponentValueRef RangeTest MethodAnalysis TimePerformed AtPathologist SignatureCOMPLEMENT C3125 86 - 184 mg/dL05/09/2025 2:23 PM [facility] COMPLEMENT Z74508 - 47 mg/dL05/09/2025 2:23 PM [facility] LABORATORYSpecimen (Source)Anatomical Location / LateralityCollection Method / VolumeCollection TimeReceived TimeBloodVenous blood / UnknownVenipuncture / Fzdcwdr1405/09/2025 11:52 AM EDT1 12:32 PM EDT Narrative Authorizing ProviderResult TypeResult StatusVidhit Lenora DOLAB BLOOD ORDERABLES Final ResultPerforming OrganizationAddressty/State/ZIP CodePhone Number [facility] [address] [place] [address], [place] [phone] * (ABNORMAL) Protein electrophoresis, serum (05/09/2025 11:52 AM EDT)Component ValueRef RangeTest MethodAnalysis TimePerformed AtPathologist SignatureTOTAL PROTEIN5.7(L)6.0 - 8.0 g/dL05/10/2025 12:00 PM [facility] LABORATORYALPHA 1 GLOBULIN0.40.1 - 0.4 g/dL05/10/2025 12:00 PM [facility] LABORATORYALPHA 2 GLOBULIN0.90.4 - 1.1 g/dL05/10/2025 12:00 PM [facility] LABORATORYBETA GLOBULIN0.70.5 - 1.2 g/dL 05/10/2025 12:00 PM [facility] LABORATORYGAMMA GLOBULIN0.80.5 - 1.6 g/dL05/10/2025 12:00 PM [facility] LABORATORYProtein Electrophoresis InterpUnremarkable protein distribution, no monoclonal bands 05/10/2025 12:00 PM [facility] LABORATORYAlbumin2.9(L)3.4 - 5.3 g/dL05/10/2025 12:00 PM [facility] LABORATORYSpecimen (Source)Anatomical Location / LateralityCollection Method / VolumeCollection TimeReceived TimeBloodVenous blood / UnknownVenipuncture / Jizaica8705/09/2025 11:52 AM EDT1 12:32 PM EDT Narrative Authorizing ProviderResult TypeResult StatusVidhit Lenora DOLAB BLOOD ORDERABLES Final ResultPerforming OrganizationAddressCity/State/ZIP CodePhone Number [facility] [address] [place] [address], * Rheumatoid factor (05/09/2025 5:56 AM EDT)ComponentValueRef RangeTest Method Analysis TimePerformed AtPathologist SignatureRHEUMATOID FACTOR<10<20 IU/mL 05/09/2025 12:10 PM [facility] LABORATORYSpecimen (Source) Anatomical Location / LateralityCollection Method / VolumeCollection Time Received TimeBloodVenous blood / UnknownVenipuncture / Ytojbzd3405/09/2025 5:56 AM EDT1 6:09 AM EDT Narrative Authorizing ProviderResult TypeResult StatusVidhit Lenora DOLAB BLOOD ORDERABLES Final ResultPerforming OrganizationAddressCity/State/ZIP CodePhone Number [facility] [address] [place] [address], * DNA double-stranded (dsDNA) Abs (05/09/2025 5:56 AM EDT)ComponentValueRef RangeTest MethodAnalysis TimePerformed AtPathologist SignatureDouble Stranded DNA Ab<1<5 IU/ML05/09/2025 1:54 PM [facility] Specimen (Source)Anatomical Location / LateralityCollection Method / Volume Collection TimeReceived TimeBloodVenous blood / UnknownVenipuncture / Unknown 05/09/2025 5:56 AM EDT1 6:09 AM EDT Narrative [facility] - 05/09/2025 1:54 PM EDT Interpretation < 5 Negative 5 - 9 Indeterminate > 9 Positive Authorizing ProviderResult TypeResult StatusVidhit Lenora DOLAB BLOOD ORDERABLES Final ResultPerforming OrganizationAddressCity/State/ZIP CodePhone Number [facility] [address] [place] [address], * VIVEK Screen w/ Reflex (05/09/2025 5:56 AM EDT)ComponentValueRef RangeTest MethodAnalysis TimePerformed AtPathologist SignatureANA SCREEN W/REFLEX WgildswtScpqwkgt32/27/2025 1:54 PM [facility] Specimen (Source)Anatomical Location / LateralityCollection Method / Volume Collection TimeReceived TimeBloodVenous blood / UnknownVenipuncture / Unknown 05/09/2025 5:56 AM EDT1 6:09 AM EDT Narrative [facility] - 05/09/2025 1:54 PM EDT Testing performed using multiplex flow immunoassay. Eleven difference antigens associated with systemic autoimmunie diseases (dsDNA, Sm, Sm/HEAD SOFT SUGAR OPERATOR, HEAD SOFT SUGAR OPERATOR, Chromatin, SSA, SSB, Mary-1, Sc170, Ribo P, Centromere B) are included in this sreening tests. Authorizing ProviderResult TypeResult StatusVidhit Lenora DOLAB BLOOD ORDERABLES Final ResultPerforming OrganizationAddressty/State/ZIP CodePhone Number [facility] [address] [place] [address], * Uric acid (05/09/2025 5:56 AM EDT)ComponentValueRef RangeTest MethodAnalysis TimePerformed AtPathologist SignatureURIC ACID6.42.6 - 7.2 mg/dL05/09/2025 12:10 PM [facility] LABORATORYSpecimen (Source)Anatomical Location / LateralityCollection Method / VolumeCollection TimeReceived Time BloodVenous blood / UnknownVenipuncture / Oaurzvc0005/09/2025 5:56 AM EDT 05/09/2025 6:09 AM EDT Narrative Authorizing ProviderResult TypeResult StatusVidhit Lenora DOLAB BLOOD ORDERABLES Final ResultPerforming OrganizationAddressCity/State/ZIP CodePhone Number [facility] [address] [place] [address], * (ABNORMAL) CBC auto differential (05/09/2025 5:56 AM EDT)ComponentValueRef RangeTest MethodAnalysis TimePerformed AtPathologist SignatureWBC6.34 - 11 x10E9/L1 6:23 AM [facility] LABORATORYRBC Count2.76 (L)3.8 - 5.2 X10E12/L1 6:23 AM [facility] Hemoglobin8.7(L)11.7 - 15.5 g/dL05/09/2025 6:23 AM [facility] KMNQIDSUFYKfdpdfislg97.5(L)35 - 47 %05/09/2025 6:23 AM [facility] BBBTWVMITEOXQ2733 - 100 fL05/09/2025 6:23 AM [facility] IYOJICDKPAFKK09.627 - 34 pg05/09/2025 6:23 AM [facility] [facility] BAHHHRBHSFQSHZ92.832 - 36 g/dL05/09/2025 6:23 AM [facility] YJDTTDIGJKTLV13.8(H)11.5 - 15 %05/09/2025 6:23 AM [facility] LABORATORYPlatelet [id number] - 450 X10E9/L1 6:23 AM EDT [facility] LABORATORYMPV8.67 - 12 fL05/09/2025 6:23 AM [facility] LABORATORYNeutrophils %66.8%05/09/2025 6:23 AM [facility] LABORATORYLymphocytes %21.4%05/09/2025 6:23 AM [facility] LABORATORYMonocytes %9.0%05/09/2025 6:23 AM [facility] LABORATORYEosinophils %2.0%05/09/2025 6:23 AM [facility] LABORATORYBasophils %0.8%05/09/2025 6:23 AM [facility] LABORATORYNeutrophils Absolute (A)4.21.5 - 6.6 10*3/uL 05/09/2025 6:23 AM [facility] LABORATORYLymphocytes Absolute 1.41.0 - 3.5 10*3/uL05/09/2025 6:23 AM [facility] Monocytes Absolute0.60.0 - 0.9 10*3/uL05/09/2025 6:23 AM [facility] LABORATORYEosinophils Absolute0.10.0 - 0.4 10*3/uL05/09/2025 6:23 AM [facility] LABORATORYBasophils Absolute0.10.0 - 0.2 10*3/uL 05/09/2025 6:23 AM [facility] LABORATORYDifferential Type AUTOMATED VNUPQKVMMIZA91/27/2025 6:23 AM [facility] LABORATORYSpecimen (Source)Anatomical Location / LateralityCollection Method / VolumeCollection TimeReceived TimeBloodVenous blood / UnknownVenipuncture / Dpqyltc7005/09/2025 5:56 AM EDT1 6:09 AM EDT Narrative Authorizing ProviderResult TypeResult StatusRandaxa BARRY BLOOD ORDERABLES Final ResultPerforming OrganizationAddressCity/State/ZIP CodePhone Number [facility] [address] [place] [address], * (ABNORMAL) Comprehensive metabolic panel (05/09/2025 5:56 AM EDT)Component ValueRef RangeTest MethodAnalysis TimePerformed AtPathologist SignatureSODIUM [id number] - 146 mmol/L1 6:42 AM [facility] POTASSIUM4.03.5 - 5.0 mmol/L1 6:42 AM [facility] DLEKLCNSMQJWKQRYTT37(L)98 - 109 mmol/L1 6:42 AM [facility] LABORATORYCARBON VERKLAP79(H)22 - 32 mmol/L1 6:42 AM [facility] LABORATORYANION GAP85 - 15 mmol/L1 6:42 AM [facility] LABORATORYBLOOD UREA GHMPNOQC62(H)5 - 27 mg/dL 05/09/2025 6:42 AM [facility] LABORATORYCREATININE1.86(H)0.40 - 1.00 mg/dL05/09/2025 6:42 AM [facility] LABORATORYComment: METHOD TRACEABLE TO IDMT WGJWIEQZQCVMQZW883(H)65 - 99 mg/dL05/09/2025 6:42 AM [facility] LABORATORYCALCIUM9.18.5 - 10.5 mg/dL05/09/2025 6:42 AM [facility] LABORATORYTOTAL PROTEIN5.7(L)6.0 - 8.0 g/dL05/09/2025 6:42 AM [facility] LABORATORYALBUMIN3.0(L)3.2 - 5.3 g/dL05/09/2025 6:42 AM [facility] LABORATORYALKALINE MSWCITJUVWD7955 - 130 U/L1 6:42 AM [facility] ITMYCNNXAUWHO39<=41 U/L1 6:42 AM [facility] LABORATORYALT3<=31 U/L1 6:42 AM [facility] LABORATORYBILIRUBIN,TOTAL0.50.3 - 1.2 mg/dL05/09/2025 6:42 AM [facility] LABORATORYEGFR Non-Race Tzeeqthvk53(L)>=60 ml/min/1.73sq.m 05/09/2025 6:42 AM [facility] LABORATORYComment: Reported eGFR is based on the CKD-EPI 2020 equation that does not use a race coefficient. Specimen (Source)Anatomical Location / LateralityCollection Method / Volume Collection TimeReceived TimeBloodVenous blood / UnknownVenipuncture / Unknown 05/09/2025 5:56 AM EDT1 6:09 AM EDT Narrative Authorizing ProviderResult TypeResult StatusMinerva BARRY BLOOD ORDERABLES Final ResultPerforming OrganizationAddressCity/State/ZIP CodePhone Number [facility] [address] [place] [address], * (ABNORMAL) Bedside Glucose *Place/Obtain serum glucose if >500 per glucometer. (05/08/2025 9:36 PM EDT)ComponentValueRef RangeTest MethodAnalysis Time Performed AtPathologist SignatureBedside Glucose (POC)131(H)65 - 99 mg/dL 05/08/2025 9:38 PM [facility] LABORATORYSpecimen (Source)Anatomical Location / LateralityCollection Method / VolumeCollection TimeReceived Time arterial/xwfibdfrn49/26/2025 9:36 PM EDT1 9:38 PM EDT Narrative Authorizing ProviderResult TypeResult StatusSunshine Parikh MDPOINT OF CARE TEST ORDERABLESFinal ResultPerforming OrganizationAddressCity/State/ZIP Code Phone Number [facility] [address] [place] [address], documented in this encounter Visit Diagnoses Diagnosis Respiratory failure ([facility])- Primary Acute respiratory failure Chronic hypercapnia Obesity hypoventilation syndrome ([facility]) Obesity hypoventilation syndrome Urinary tract infection without hematuria, site unspecified Acute exacerbation of CHF (congestive heart failure) ([facility]) Congestive heart failure, unspecified documented in this encounter Admitting Diagnoses Diagnosis Respiratory failure ([facility]) Acute respiratory failure Acute exacerbation of CHF (congestive heart failure) ([facility]) Congestive heart failure, unspecified documented in this encounter Administered Medications Medication OrderMAR ActionAction DateDoseRateSite acetaminophen (TYLENOL) tablet 325 mg 325 mg, oral, Every 6 hours PRN, mild pain - pain scale 1-3, moderate pain - pain scale 4-6, Starting on Fri05/10/25 at 1254 Given05/10/2025 1:06 PM VSZ691 mg acetaZOLAMIDE (DIAMOX) 500 mg in sodium chloride 0.9 % 50 mL IVPB 500 mg, intravenous, at 220 mL/hr, Administer over 15 Minutes, Once, On Ainsley 05/19/25 at 1430, For 1 dose, Look-alike/sound-alike medication - verify indication for use. New 05/19/2025 4:47 PM DHD572 mg220 mL/hr acetaZOLAMIDE (DIAMOX) tablet 250 mg 250 mg, oral, Every 8 hours scheduled, First dose on Ainsley 05/12/25 at 1430, Look-alike/sound-alike medication - verify indication for use. Given05/14/2025 5:57 AM JIQ907 twPpuey0505/13/2025 9:21 PM NIT445 mgGiven 05/13/2025 1:15 PM LEW587 mg albumin human 25 % IVPB Premix 25 g 25 g, intravenous, Once, On Ainsley 05/12/25 at 1430, For 1 dose, Do not exceed 1 mL/minute in patientswith normal plasma volume; 2 to 3 mL/minute in patients with hypoproteinemia For BUMINATE, administer using a 15 micron or smaller filter. A filter is NOT required for administration by other brands., Indication: Other, Indication: Hypoalbuminemia 05/12/2025 3:19 PM EDT25 g albumin human 25 % IVPB Premix 25 g 25 g, intravenous, Once, On Ainsley 05/19/25 at 1430, For 1 dose, Do not exceed 1 mL/minute in patients with normal plasma volume; 2 to 3 mL/minute in patients with hypoproteinemia For BUMINATE, administer using a 15 micron or smaller filter. A filter is NOT required for administration by other brands.,Indication: Other, Indication: Hypoalbuminemia New 05/19/2025 5:13 PM EST25 g amoxicillin-pot clavulanate (AUGMENTIN) 500-125 mg per tablet 1 tablet 1 tablet, oral, Every 12 hours scheduled, First dose on Fri05/13/25 at 2100, Indication: UTI Given05/14/2025 8:26 AM EDT1 pcowkoYeqql95/31/2025 9:21 PM EDT1 tablet aspirin chewable tablet 81 mg 81 mg, oral, Daily, First dose on 05/09/25 at 0900 05/09/2025 9:17 AM EDT81 mg aspirin EC tablet 81 mg 81 mg, oral, Daily, First dose on Fri05/18/25 at 0900, Do not crush or chew. Given05/20/2025 8:44 AM EST81 ndAzwrr0205/19/2025 9:08 AM EST81 emUeevu7005/18/2025 9:10 AM EST81 mg atorvastatin (LIPITOR) tablet 10 mg 10 mg, oral, Nightly, First dose on Fri05/08/25 at 2200, Administer on an empty stomach, at least 1 hour before or 2 hours after a meal. Look-alike/sound-alike medication - verify indication for use. Given05/13/2025 9:21 PM EDT10 qjNgcqd3005/12/2025 8:09 PM EDT10 npBjnky8105/11/2025 9:00 PM EDT10 mg bisacodyL (DULCOLAX) suppository 10 mg 10 mg, rectal, 2 times daily PRN, constipation, Starting on Fri05/13/25 at 1212, Look-alike/sound-alike medication - verify indication for use. bumetanide (BUMEX) 3 mg in sodium chloride 0.9 % 50 mL IVPB 3 mg, intravenous, at 124 mL/hr, Administer over 30 Minutes, Every 8 hours scheduled, First dose onFri05/13/25 at 1400 New 05/15/2025 6:12 AM EST3 mg124 mL/hrNew 05/14/2025 9:51 PM EDT3 mg124 mL/hrNew 05/14/2025 1:50 PM EDT3 mg124 mL/hr bumetanide (BUMEX) tablet 2 mg 2 mg, oral, 2 times daily, First dose on A[place] 05/12/25 at 0900 05/12/2025 9:15 AM EDT2 mg bumetanide (BUMEX) tablet 2 mg 2 mg, oral, 2 times daily, First dose on 05/15/25 at 2100 05/18/2025 9:11 AM EST2 uxDnlcc6105/17/2025 8:37 PM EST2 tmFzyul5305/17/2025 8:18 AM EST2 mg bumetanide (BUMEX) tablet 2 mg 2 mg, oral, Every other day, First dose on 05/21/25 at 0900 bumetanide (BUMEX) tablet 4 mg 4 mg, oral, 2 times daily, First dose (after last modification) on A[place]ley 05/12/25 at 2100 Given05/13/2025 8:22 AM EDT4 mdTgsff5205/12/2025 8:09 PM EDT4 mg calcium gluconate 3,000 mg in sodium chloride 0.9 % 100 mL IVPB 3,000 mg, intravenous, at 43.3 mL/hr, Administer over 3 Hours, As needed, ionized calcium 3.5 to 3.9 mg/dL, Starting on Fri05/09/25 at 1354, IV Administration of calcium via a central or deep vein preferred. Avoid administration in small hand veins VESICANT (RED) calcium gluconate 4,000 mg in sodium chloride 0.9 % 250 mL IVPB 4,000 mg, intravenous, at 72.5 mL/hr, Administer over 4 Hours, As needed, ionized calcium 3.4 mg/dLor less, Starting on Fri05/09/25 at 1354, IV administration of calcium via a central or deep vein is preferred. Avoid administration in small hand veins. VESICANT (RED) calcium gluconate IVPB 2000 mg/100 mL (20 mg/mL premix) 2,000 mg, intravenous, at 50 mL/hr, Administer over 2 Hours, As needed, ionized calcium 4 to 4.3 mg/dL, Starting on Fri05/09/25 at 1354, IV Administration of calcium via a central or deep vein preferred. Avoid administration in small hand veins VESICANT (RED) carvediloL (COREG) tablet 3.125 mg 3.125 mg, oral, 2 times daily, First dose on 05/08/25 at 2130, Hold for systolic blood pressureless than 110 or heart rate less than 60 Give with meal or snack. Look-alike/sound-alike medication- verify indication for use. Given05/20/2025 8:43 AM EST3.125 bhLntvs2405/19/2025 8:55 PM EST3.125 mgGiven 05/19/2025 9:08 AM EST3.125 mg clopidogreL (PLAVIX) tablet 75 mg 75 mg, oral, Daily, First dose on Fri05/09/25 at 0900, Look-alike/sound-alike medication - verify indication for use. Given05/09/2025 9:17 AM EDT75 mg clopidogreL (PLAVIX) tablet 75 mg 75 mg, oral, Daily, First dose (after last reorder) on Fri05/18/25 at 0900, Look-alike/sound-alike medication - verify indication for use. Given05/20/2025 8:44 AM EST75 irHqisg2405/19/2025 9:08 AM EST75 aqTewfa4505/18/2025 9:10 AM EST75 mg DAPTOmycin (CUBICIN) 375 mg in sodium chloride 0.9 % 50 mL IVPB 375 mg (rounded from 321.6 mg = 6 mg/kg ?? 53.6 kg Adjusted weight), intravenous, at 115 mL/hr, Administer over 30 Minutes, Every 48 hours, First dose (after last modification) on Fri05/14/25 at 1600, Approved Indications: Enterococcus infection other than pneumonia, Authorizing Service: ID consulthas been placed, I acknowledge that an appropriate consult is REQUIRED to use this drug at [facility] policy # MM 1.15: Yes New Bag05/18/2025 4:24 PM IVP745 mg115 mL/hrNew Bag05/16/2025 6:31 PM EOQ559 mg 115 mL/hrNew Bag05/14/2025 4:10 PM ANE783 mg115 mL/hr darbepoetin reginald-polysorbate (ARANESP) injection 60 mcg 60 mcg, subcutaneous, Weekly, First dose on Fri05/10/25 at 1200, Do not administer if the patient's hemoglobin is greater than 12 g/dl., Indications: anemia due to renal failure Indications:anemia due to renal emfcbnfYspow38/04/2025 8:18 AM EST60 mcg Abdominal JupjakRjxws40/28/2025 3:40 PM EDT60 mcgAbdominal Tissue dextrose (GLUTOSE) 40 % gel 15 g 15 g, oral, As needed, low blood sugar, blood glucose less than 70 mg/dL, Starting on Ainsley 05/12/25 at 1058, If patient conscious and taking PO. If blood glucose is not greater than 70 mg/dL after initial treatment, repeat treatment. dextrose 5 % (D5W) infusion 100 mL/hr, intravenous, Continuous PRN, blood glucose less than 70 mg/dL, Starting on Ainsley 05/12/25 at 1058, For 365 days, Use immediately following dextrose 50% or glucagon treatment for patients whoare unconscious or NPO. Contact prescriber for additional orders. If blood glucose is not greater than 70 mg/dL after initial treatment, repeat treatment. dextrose 50 % in water (D50W) 50% solution 25 mL 25 mL, intravenous, As needed, low blood sugar, blood glucose less than 70 mg/dL and unconscious orNPO with IV access, Starting on Ainsley 05/12/25 at 1058, Push over 1-3 minutes STAT. If conscious and not NPO, immediately follow with meal tray or high protein (7 grams) snack if tray not available. IfNPO, initiate 5% dextrose in water at 100 mL/hr and contact prescriber for additional orders. If blood glucose is not greater than 70 mg/dL after initial treatment, repeat treatment. VESICANT (RED) Warning: HYPERTONIC solution. diclofenac sodium (VOLTAREN) 1 % gel 2 g 2 g, topical, 4 times daily, First dose on Fri05/10/25 at 1300, Use dosing card to measure dose. Apply to leg. Given05/19/2025 9:03 PM EST2 qFbvok9105/18/2025 9:49 PM EST2 bXuayy9905/18/2025 4:25 PM EST2 g ertapenem (INVanz) 500 mg in sodium chloride 0.9 % 50 mL IVPB 500 mg, intravenous, at 110 mL/hr, Administer over 30 Minutes, Every 24 hours, First dose (after last modification) on Fri05/14/25 at 1500, Do not mix with any solutions containing dextrose, ApprovedIndication: Documented ESBL-producing organism, Authorizing Service: ID consult has been placed, I acknowledge that an appropriate consult is REQUIRED to use this drug at [facility] per [facility]-approved policy # MM 1.15: Yes New Bag05/19/2025 4:04 PM GWV417 mg110 mL/hrNew Bag05/18/2025 3:31 PM TLO466 mg 110 mL/hrNew Bag05/17/2025 3:00 PM HUU984 mg110 mL/hr fentaNYL (SUBLIMAZE) injection intravenous, Code/trauma/sedation medication, Starting on Fri05/16/25 at 1505, Intra-op Given05/16/2025 3:05 PM EST50 mcg furosemide (LASIX) injection 80 mg 80 mg, intravenous, Every 12 hours, First dose on Fri05/09/25 at 1000, Look-alike/sound-alike medication - verify indication for use. IVP rate = 20 mg/min Given05/09/2025 1:20 PM EDT80 mg furosemide (LASIX) injection 80 mg 80 mg, intravenous, Every 8 hours scheduled, First dose (after last modification) on Fri05/09/25 at 2200, For 7 doses, Look-alike/sound-alike medication - verify indication for use. IVP rate = 20 mg/min Given05/11/2025 9:01 PM EDT80 utNdsbn6705/11/2025 2:09 PM EDT80 kwTrvlb8405/11/2025 5:38 AM EDT80 mg gabapentin (NEURONTIN) capsule 300 mg 300 mg, oral, 2 times daily, First dose on Fri05/09/25 at 0015, Look-alike/sound-alike medication - verify indication for use. Given05/12/2025 9:15 AM ZDH263 vmWtlhs4605/11/2025 9:00 PM FAG040 mgGiven 05/11/2025 7:50 AM ARC175 mg gabapentin (NEURONTIN) capsule 300 mg 300 mg, oral, Nightly, First dose (after last modification) [facility] 05/12/25 at 2200, Look-alike/sound-alike medication - verify indication for use. Given05/19/2025 8:55 PM VDT793 biSlrra7505/18/2025 9:53 PM YWC781 mgGiven 05/17/2025 8:37 PM UQM551 mg glucagon HCL injection 1 mg 1 mg, intramuscular, As needed, low blood sugar, blood glucose less than 70 mg/dL and unconscious or NPO without IV access., Starting on Ainsley 05/12/25 at 1058, If conscious and not NPO, immediately follow with meal tray or high protein (7Grams) snack if tray not available. If NPO, initiate IV 5% Dext sterling/Water at 100 mL/hr and contact prescriber for additional orders. If blood glucose is not greater than 70 mg/dL after initial treatment, repeat treatment. guaiFENesin (ROBITUSSIN) 100 mg/5 mL syrup 200 mg 200 mg, oral, Every 4 hours PRN, congestion, Starting on Fri05/11/25 at 1136, Look-alike/sound-alike medication - verify indication for use. Given05/11/2025 9:01 PM EOY667 naFdpax1905/11/2025 12:20 PM PMS401 mg heparin (porcine) injection 5,000 Units 5,000 Units, subcutaneous, Every 12 hours scheduled, First dose on Fri05/09/25 at 1430, Look-alike/sound-alike medication - verify indication for use. Observe for bleeding. Given05/20/2025 8:44 AM EST5,000 UnitsAbdominal TkdauyBvbir30/06/2025 8:56 PM EST5,000 UnitsAbdominal ApvkxzCcbwd95/06/2025 9:12 AM EST5,000 UnitsAbdominal Tissue insulin glargine (LANTUS, SEMGLEE) injection pen 20 Units 20 Units, subcutaneous, Nightly, First dose (after last modification) on 05/14/25 at 2200, Look-alike/sound-alike medication - verify indication for use. Prime with 2 units of insulin prior to administration. Basal (long acting) insulin for subcutaneous administration only. Do not mix with any other insulin. Pre-filled pens stable 28 days at room temperature. Given05/19/2025 9:03 PM EST20 UnitsAbdominal TmrbmeLbvmd43/05/2025 9:48 PM EST20 UnitsAbdominal IdjsroByuzq37/04/2025 8:37 PM EST20 UnitsAbdominal Tissue insulin lispro (HumaLOG) injection 1-4 Units 1-4 Units, subcutaneous, Nightly, First dose on Fri05/11/25 at 2200, Bedtime hyperglycemia dosing.For blood glucose 201-250 mg/dL, give 1 unit. For blood glucose 251-300 mg/dL, give 2 units. For blood glucose 301-350 mg/dL, give 3 units. For blood glucose 351-400 mg/dL, give 4 units. Give even ifNPO or meals skipped. Do NOT give more often than every 4 hours when NPO. Notify prescriber if blood glucose greater than 400 mg/dL. Look-alike/sound-alike medication - verify indication for use. Prime with 2 units of insulin prior to administration. Prandial/supplemental Insulin. Pre-filled pens stable 28 days at room temperature. Insulin lispro should be administered within 15 minutes before orimmediately after a meal. Given05/11/2025 9:01 PM EDT2 UnitsAbdominal Tissue insulin lispro (HumaLOG) injection 1-5 Units 1-5 Units, subcutaneous, 3 times daily with meals, First dose on Fri05/11/25 at 1200, Daytime hyperglycemia dosing. For blood glucose 151-200 mg/dL, give 1 unit. For blood glucose 201-250 mg/dL, give 2 units. For blood glucose 251-300 mg/dL, give 3 units. For blood glucose 301-350 mg/dL, give 4 units. For blood glucose 351-400 mg/dL, give 5 units. Give even if NPO or meals skipped. Do NOT give more often than every 4 hours when NPO. Notify prescriber if blood glucose greater than 400 mg/dL. Look-alike/sound-alike medication - verify indication for use. Prime with 2 units of insulin prior to administration. Prandial/supplemental Insulin. Pre-filled pens stable 28 days at room temperature. Insulin lispro should be administered within 15 minutes before or immediately after a meal. Given05/12/2025 9:22 AM EDT2 UnitsAbdominal PdbhvxYgrnw46/29/2025 5:24 PM EDT2 UnitsAbdominal YylcalFctgu48/29/2025 2:26 PM EDT3 UnitsAbdominal Tissue insulin lispro (HumaLOG) injection 2-10 Units 2-10 Units, subcutaneous, 3 times daily with meals, First dose on Fri05/12/25 at 1200, Daytime hyperglycemia dosing. For blood glucose 151-200 mg/dL, give 2 units. For blood glucose 201-250 mg/dL, give 4 units. For blood glucose 251-300 mg/dL, give 6 units. For blood glucose 301-350 mg/dL, give 8 units. For blood glucose 351-400 mg/dL, give 10 units. Give even if NPO or meals skipped. Do NOT give more often then every 4 hours when NPO. Notify prescriber if blood glucose greater than 400 mg/dL.Look-alike/sound-alike medication - verify indication for use. Prime with 2 units of insulin prior to administration. Prandial/supplemental Insulin. Pre-filled pens stable 28 days at room temperature. Insulin lispro should be administered within 15 minutes before or immediately after a meal. Given05/20/2025 8:48 AM EST2 UnitsAbdominal EejuyaWkavz53/06/2025 4:08 PM EST4 UnitsAbdominal BwanevAcqyt11/06/2025 12:58 PM EST2 UnitsAbdominal Tissue insulin lispro (HumaLOG) injection 2-8 Units 2-8 Units, subcutaneous, Nightly, First dose on [place] 05/12/25 at 2200, Bedtime hyperglycemia dosing.For blood glucose 201-250 mg/dL, give 2 units. For blood glucose 251-300 mg/dL, give 4 units. For blood glucose 301-350 mg/dL, give 6 units. For blood glucose 351-400 mg/dL, give 8 units. Give even if NPO or meals skipped. Do NOT give more often then every 4 hours when NPO. Notify prescriber if blood glucose greater than 400 mg/dL. Look-alike/sound-alike medication - verify indication for use. Prime with 2 units of insulin prior to administration. Prandial/supplemental Insulin. Pre-filled pens stable 28 days at room temperature. Insulin lispro should be administered within 15 minutes before or immediately after a meal. Given05/19/2025 9:04 PM EST2 UnitsAbdominal GuyhseBpxrw62/05/2025 9:49 PM EST2 UnitsAbdominal UvltzoLmmci27/03/2025 10:02 PM EST2 UnitsLeft Arm iohexoL (OMNIPAQUE) 300 mg iodine/mL Code/trauma/sedation medication, Starting on 05/16/25 at 1517, Intra-op Given05/16/2025 3:17 PM EST10 mL ipratropium-albuteroL (DUONEB) 0.5 mg-3 mg(2.5 mg base)/3 mL nebulizer solution 3 mL 3 mL, nebulization, Every 6 hours, First dose on Fri05/08/25 at 2130, Implement INPATIENT/ED Bronchodilator Clinical Practice Guidelines? Yes Given05/13/2025 2:00 PM EDT3 kLAgnvm9405/13/2025 9:08 AM EDT3 wVQlvhp4405/13/2025 3:09 AM EDT3 mL ipratropium-albuteroL (DUONEB) 0.5 mg-3 mg(2.5 mg base)/3 mL nebulizer solution 3 mL 3 mL, nebulization, Every 4 hours PRN, wheezing, Starting on Fri05/13/25 at 1515, Implement INPATIENT/ED Bronchodilator Clinical Practice Guidelines? Yes Given05/16/2025 1:25 PM EST3 mL levoFLOXacin (LEVAQUIN) IVPB 500 mg/100 mL in dextrose 5% (5 mg/mL premix) 500 mg, intravenous, at 100 mL/hr, Administer over 60 Minutes, Every 48 hours, First dose (after last reorder) on Fri05/09/25 at 0200, Avoid administration through an intravenous line with a solution containing multivalent cations (eg, magnesium, calcium). Look-alike/sound-alike medication - verify indication for use. May alter blood glucose or insulin requirements., Specific Use Criteria: UTI (documented susceptible organism), Fluoroquinolones contain FDA Black Box warnings. Due to safety concerns, avoid use in acute bacterial sinusitis, acute bacterial exacerbation of chronic bronchitis, or acute uncomplicated cystitis if possible. Use alternative treatment if available. I acknowledge the Black Box warnings of fluoroquinolones. New Bag05/09/2025 2:18 AM ZBA386 mg100 mL/hr lidocaine PF (XYLOCAINE) 10 mg/mL (1 %) injection infiltration, Code/trauma/sedation medication, Starting on Fri05/16/25 at 1506, Intra-op Given05/16/2025 3:06 PM EST10 mLOperative Site magnesium sulfate IVPB 2000 mg/50 mL in iso-osmotic water (40 mg/mL premix) 2,000 mg, intravenous, at 25 mL/hr, Administer over 120 Minutes, As needed, Magnesium level 1.7 to 1.9 mg/dL, or Ionized Magnesium level 0.45 to 0.5 mmol/L., Starting on Fri05/09/25 at 1358, Recheckmagnesium level 4 hours after infusion complete. With each magnesium result continue the replacement orders as needed. magnesium sulfate IVPB 4000 mg/100 mL in iso-osmotic water (40 mg/mL premix) 4,000 mg, intravenous, at 25 mL/hr, Administer over 240 Minutes, As needed, Magnesium level 1.6 mg/dL or less, or Ionized Magnesium level 0.44 mmol/L or less, Starting on Fri05/09/25 at 1358, Recheck magnesium level 4 hours after infusion complete. With each magnesium result continue the replacement orders as needed. micafungin (MYCAMINE) 100 mg in sodium chloride 0.9 % 100 mL IVPB W/ADAPTER 100 mg, intravenous, at 100 mL/hr, Administer over 60 Minutes, Every 24 hours, First dose on 05/14/25 at 1530, For Vial-2-Bag: Attach bag and vial to adapter - Use immediately after activating; dissolve drug prior to administration., Approved Indication: Prolonged QTc interval, Authorizing Servic e: ID consult has been placed, I acknowledge that an appropriate consult is REQUIRED to use this drug at [facility] per [facility]-approved policy # MM 1.15: Yes New Bag05/19/2025 4:05 PM [id number] mg100 mL/hrNew Bag05/18/2025 3:26 PM [id number] mg 100 mL/hrNew Bag05/17/2025 4:02 PM [id number] mg100 mL/hr midodrine (PROAMATINE) tablet 10 mg 10 mg, oral, Once, On Fri05/13/25 at 2145, For 1 dose, Look-alike/sound-alike medication - verify indication for use. Given05/13/2025 9:37 PM EDT10 mg midodrine (PROAMATINE) tablet 5 mg 5 mg, oral, 3 times daily PRN, For systolic less than 100, Starting on 05/14/25 at 0748, Look-alike/sound-alike medication - verify indication for use. perflutren lipid microspheres (DEFINCaring in Place) dilution injection 1.43 mg/10 mL 2 mL, intravenous, Once in imaging, contrast, Starting on Fri05/10/25 at 0840, For 1 dose, Dilute 1.3 mL of Definity with 8.7 mL 0.9% NaCl in 10 mL syringe. Administer 2 mL perflutren (Definity) contrast if 2 contiguous segments of the LV are not well visualized. May repeat 2 mL dose until LV visualization is accomplished. Procedure total dose not to exceed 10 mL. Given05/10/2025 8:41 AM EDT2 mL polyethylene glycol (GLYCOLAX) packet 17 g 17 g, oral, Daily, First dose on Fri05/13/25 at 1215, Look-alike/sound-alike medication - verify indication for use. Dissolve 1 packet (17 gm) in 8 ounces of water, juice, soda, coffee or tea. Given05/18/2025 9:11 AM EST17 fNhdex0405/17/2025 8:18 AM EST17 uBdkcb7505/15/2025 8:30 AM EST17 g polyethylene glycol (GLYCOLAX) packet 17 g 17 g, oral, 2 times daily, First dose (after last modification) on Fri05/18/25 at 2100, Look-alike/sound-alike medication - verify indication for use. Dissolve 1 packet (17 gm) in 8 ounces of water, juice, soda, coffee or tea. Given05/19/2025 8:55 PM EST17 zUemir8905/19/2025 9:10 AM EST17 mEzrjz3505/18/2025 9:49 PM EST17 g potassium chloride (K-TAB,KLOR-CON) CR tablet 20-60 mEq 20-60 mEq, oral, As needed, Potassium Supplementation, Starting on Fri05/09/25 at 1350, Progress to oral potassium replacement when patient tolerating oral intake. If dose administered, recheck potassium level 4 hours after last dose. For potassium level 3.4 to 3.7 mmol/L =20 mEq. For potassium level 3.1 to 3.3 mmol/L =40 mEq. For potassium level 3 mmol/L or less =60 mEq. Do not crush or chew. Given05/18/2025 9:11 AM EST20 uDkHudmk60/04/2025 8:19 AM EST40 mEqGiven 05/15/2025 8:28 AM EST20 mEq potassium chloride (KAYCIEL) 20 mEq/15 mL solution 20-60 mEq 20-60 mEq, oral, As needed, Potassium Supplementation, Starting on Fri05/09/25 at 1350, Progress to oral potassium replacement when patient tolerating oral intake. If dose administered, recheck potassium level 4 hours after last dose. For potassium level 3.4 to 3.7 mmol/L =20 mEq. For potassium level 3.1 to 3.3 mmol/L =40 mEq. For potassium level 3 mmol/L or less =60 mEq. Must dilute before use - Mix in 3-8 ounces of water or juice before administration When administering in feeding tube, flush before and after per policy and monitor potassium levels potassium chloride IVPB 10 mEq/100 mL in water (0.1 mEq/mL premix) 10 mEq, intravenous, at 100 mL/hr, Administer over 60 Minutes, As needed, POTASSIUM REPLACEMENT, Starting on Fri05/09/25 at 1350, IV if unable to use oral/enteral with the current dosing strategies For potassium level 3.4 to 3.7 mmol/L =20 mEq. For potassium level 3.1 to 3.3 mmol/L =40 mEq. For potassium level 3 mmol/L or less =60 mEq. Use central line when applicable. Recheck potassium level 1 hour after total IVPB infusion complete With each potassium result continue the replacement orders as needed VESICANT (YELLOW) Infuse each 10 mEq over a minimum of 1 hour. senna (SENOKOT) tablet 8.6 mg 8.6 mg, oral, Nightly, First dose on Fri05/13/25 at 2200 Given05/16/2025 8:15 PM EST8.6 pqTyelg6805/15/2025 9:32 PM EST8.6 mgGiven 05/14/2025 9:14 PM EDT8.6 mg senna (SENOKOT) tablet 8.6 mg 8.6 mg, oral, 2 times daily, First dose (after last modification) on Fri05/17/25 at 1045 Given05/17/2025 8:37 PM EST8.6 xiFjohf0105/17/2025 12:00 PM EST8.6 mg sennosides-docusate sodium (SENOKOT-S) 8.6-50 mg 2 tablet 2 tablet, oral, 2 times daily PRN, constipation, Starting on Fri05/13/25 at 1212 Given05/15/2025 8:28 AM EST2 fyuilmkUyjtu99/01/2025 12:27 PM EDT2 tabletsGiven 05/13/2025 1:15 PM EDT2 tablets sennosides-docusate sodium (SENOKOT-S) 8.6-50 mg 2 tablet 2 tablet, oral, 2 times daily, First dose on Fri05/18/25 at 0900 Given05/20/2025 8:44 AM EST2 vavmiqkNimsv50/06/2025 8:56 PM EST2 tabletsGiven 05/19/2025 9:08 AM EST2 tablets sod phos di, mono-K phos mono (K-PHOS NEUTRAL) 250 mg tablet 2 tablet 2 tablet, oral, As needed, for phosphorus level 2.3 mg/dL or less. Do not administer if potassium is more than 4.5, Starting on Fri05/09/25 at 1358, If dose administered, recheck phosphorus level 4 hours after last dose. Look-alike/sound-alike medication - verify indication for use. Give with a full glass of water. sodium chloride 0.9 % flush 10 mL 10 mL, intravenous, Every 12 hours, First dose on Fri05/18/25 at 1015, PICC line. Administer 10 mL per lumen; 10 mL total (for single lumen flush) Given05/20/2025 10:15 AM EST10 oTUeqsv4005/19/2025 8:56 PM EST10 aBEarac7205/19/2025 10:15 AM EST10 mL sodium chloride 0.9 % flush 10 mL 10 mL, intravenous, As needed, line care, Starting on Fri05/18/25 at 1008, PICC line. Administer 10mL to each lumen before and after each use. Administer 10 mL per lumen; 10 mL total (for single lumen flush) sodium chloride 0.9 % flush 20 mL 20 mL, intravenous, As needed, line care, Starting on Fri05/18/25 at 1008, PICC line. Administer 20mL to each lumen after lab draws, blood infusion, and meds known to precipitate. Administer 20 mL per lumen; 20 mL total (for single lumen flush) sodium chloride 0.9 % flush 3 mL 3 mL, intravenous, Every 12 hours scheduled, First dose on Fri05/08/25 at 2100 Given05/20/2025 8:52 AM EST3 dUXkwkv7205/19/2025 9:04 PM EST3 sRWdmfj5005/19/2025 9:11 AM EST3 mL sodium chloride 0.9 % infusion 20 mL/hr, intravenous, Continuous PRN, to maintain patency of lines, Starting on Fri05/08/25 at 2027, For 1 day Uacfrblwn66/27/2025 3:20 AM EDT20 mL/kfTauymelks76/27/2025 2:18 AM EDT20 mL/hr New 05/09/2025 12:48 AM EDT20 mL/hr20 mL/hr sodium chloride 0.9 % infusion 20 mL/hr, intravenous, Continuous PRN, to maintain patency line #1, Starting on Fri05/18/25 at 1512, For 1 day New 05/18/2025 3:30 PM EST20 mL/hr20 mL/hr sodium chloride 0.9 % infusion 20 mL/hr, intravenous, Continuous PRN, to maintain patency line #2, Starting on Fri05/18/25 at 1513, For 1 day New 05/18/2025 3:25 PM EST20 mL/hr20 mL/hr sodium phosphate 20 mmol in sodium chloride 0.9 % 100 mL IVPB 20 mmol, intravenous, at 26.7 mL/hr, Administer over 4 Hours, As needed, for phosphorus level 2.3 mg/dL or less., Starting on Fri05/09/25 at 1358, Administer over 4 hours via dedicated line (centralline). If administered, recheck phosphorus level 4 hours after infusion complete. Infuse using central line access. sodium phosphate 20 mmol in sodium chloride 0.9 % 250 mL IVPB 20 mmol, intravenous, at 42.8 mL/hr, Administer over 6 Hours, As needed, for phosphorus level 2.3 mg/dL or less, Starting on Fri05/09/25 at 1358, Administer over 6 hours via dedicated line (peripheral line). If administered, recheck phosphorus level 4 hours after infusion complete. documented in this encounter Active and Recently Administered Medications Times are shown in EST.Medication Order11/05 acetaZOLAMIDE (DIAMOX) 500 mg in sodium chloride 0.9 % 50 mL IVPB (COMPLETED) 500 mg, intravenous, at 220 mL/hr, Administer over 15 Minutes, Once, On A[place] 05/19/25 at 1430, For 1 dose, Look-alike/sound-alike medication - verify indication for use. * 1647 (New Bag - Provider: Anabella Bhatt RN) * 1702 (Stop Bag - Provider: Leeann Archer RN) albumin human 25 % IVPB Premix 25 g (COMPLETED) 25 g, intravenous, Once, On A[place]ley 05/19/25 at 1430, For 1 dose, Do not exceed 1 mL/minute in patients with normal plasma volume; 2 to 3 mL/minute in patients with hypoproteinemia For BUMINATE, administer using a 15 micron or smaller filter. A filter is NOT required for administration by other brands.,Indication: Other, Indication: Hypoalbuminemia * 1713 (New Bag - Provider: Leeann Archer RN) aspirin EC tablet 81 mg 81 mg, oral, Daily, First dose on Fri05/18/25 at 0900, Do not crush or chew. * 0910 (Given - Provider: Kailee Gtz RN) * 0908 (Given - Provider: Leeann Archer, LIANE) * 0844 (Given - Provider: Elizabeth Austin RN) bisacodyL (DULCOLAX) suppository 10 mg 10 mg, rectal, Once, On Fri05/17/25 at 1045, For 1 dose, Look-alike/sound-alike medication - verifyindication for use. * 1045 (Not Given - Provider: Kailee Gtz RN - Reason: Patient/family refused - Comment: was rescheduled for next day per patient request) bisacodyL (DULCOLAX) suppository 10 mg 10 mg, rectal, Once, On Fri05/18/25 at 0745, For 1 dose, Look-alike/sound-alike medication - verifyindication for use. * 0745 (Canceled Entry - Provider: Kailee Gtz RN) bumetanide (BUMEX) tablet 2 mg (CANCELED) 2 mg, oral, 2 times daily, First dose on Fri05/15/25 at 2100 * 0911 (Given - Provider: Kailee Gtz RN) bumetanide (BUMEX) tablet 2 mg 2 mg, oral, Every other day, First dose on Fri05/21/25 at 0900 carvediloL (COREG) tablet 3.125 mg 3.125 mg, oral, 2 times daily, First dose on Fri05/08/25 at 2130, Hold for systolic blood pressureless than 110 or heart rate less than 60 Give with meal or snack. Look-alike/sound-alike medication- verify indication for use. * 0910 (Given - Provider: Kailee Gtz, LIANE) * 2150 (Given - Provider: Naomi Cedillo, LIANE) * 0908 (Given - Provider: Leeann Archer, LIANE) * 2054 (Given - Provider: Humberto Mario, LIANE) * 0843 (Given - Provider: Elizabeth Austin, RN) clopidogreL (PLAVIX) tablet 75 mg 75 mg, oral, Daily, First dose (after last reorder) on Fri05/18/25 at 0900, Look-alike/sound-alike medication - verify indication for use. * 0910 (Given - Provider: Kailee Gtz RN) * 0908 (Given - Provider: Leeann Archer, RN) * 0844 (Given - Provider: Elizabeth Austin, RN) DAPTOmycin (CUBICIN) 375 mg in sodium chloride 0.9 % 50 mL IVPB 375 mg (rounded from 321.6 mg = 6 mg/kg ?? 53.6 kg Adjusted weight), intravenous, at 115 mL/hr, Administer over 30 Minutes, Every 48 hours, First dose (after last modification) on Fri05/14/25 at 1600, Approved Indications: Enterococcus infection other than pneumonia, Authorizing Service: ID consulthas been placed, I acknowledge that an appropriate consult is REQUIRED to use this drug at [facility], [facility] and [facility]-approved policy # MM 1.15: Yes * 1624 (New Bag - Provider: Kailee Gtz RN) * 1654 (Stop Bag - Provider: Kailee Gtz RN) darbepoetin reginald-polysorbate (ARANESP) injection 60 mcg 60 mcg, subcutaneous, Weekly, First dose on Fri05/10/25 at 1200, Do not administer if the patient's hemoglobin is greater than 12 g/dl., Indications: anemia due to renal failure diclofenac sodium (VOLTAREN) 1 % gel 2 g 2 g, topical, 4 times daily, First dose on Fri05/10/25 at 1300, Use dosing card to measure dose. Apply to leg. * 0914 (Given - Provider: Kailee Gtz RN) * 1318 (Given - Provider: Kailee Gtz, LIANE) * 1625 (Given - Provider: Kailee Gtz, LIANE) * 2149 (Given - Provider: Naomi Cedillo, LIANE) * 0900 (Not Given - Provider: Leeann Archer RN - Reason: Patient/family refused) * 1300 (Not Given - Provider: Leeann Archer RN - Reason: Patient/family refused) * 1700 (Not Given - Provider: Leeann Archer RN - Reason: Patient/family refused) * 2103 (Given - Provider: Humberto Mario, LIANE) * 0900 (Not Given - Provider: Elizabeth Austin RN - Reason: Patient/family refused) ertapenem (INVanz) 500 mg in sodium chloride 0.9 % 50 mL IVPB 500 mg, intravenous, at 110 mL/hr, Administer over 30 Minutes, Every 24 hours, First dose (after last modification) on Fri05/14/25 at 1500, Do not mix with any solutions containing dextrose, ApprovedIndication: Documented ESBL-producing organism, Authorizing Service: ID consult has been placed, I acknowledge that an appropriate consult is REQUIRED to use this drug at [facility], [facility] and [facility] per [facility]-approved policy # MM 1.15: Yes * 1531 (New Bag - Provider: Kailee Gtz RN) * 1601 (Stop Bag - Provider: Kailee Gtz, LIANE) * 1604 (New Bag - Provider: Leeann Archer, LIANE) * 1634 (Stop Bag - Provider: Leeann Archer, LIANE) gabapentin (NEURONTIN) capsule 300 mg 300 mg, oral, Nightly, First dose (after last modification) on A[place] 05/12/25 at 2200, Look-alike/sound-alike medication - verify indication for use. * 2152 (Given - Provider: Naomi Cedillo RN) * 2054 (Given - Provider: Humberto Mario, RN) heparin (porcine) injection 5,000 Units 5,000 Units, subcutaneous, Every 12 hours scheduled, First dose on 05/09/25 at 1430, Look-alike/sound-alike medication - verify indication for use. Observe for bleeding. * 0911 (Not Given - Provider: Kailee Gtz RN - Reason: Patient/family refused) * 2149 (Given - Provider: Naomi Cedillo RN) * 911 (Given - Provider: Leeann Archer RN) * 2055 (Given - Provider: Humberto Mario, LIANE) * 08 (Given - Provider: Elizabeth Austin RN) insulin glargine (LANTUS, SEMGLEE) injection pen 20 Units 20 Units, subcutaneous, Nightly, First dose (after last modification) on [facility] 05/14/25 at 2200, Look-alike/sound-alike medication - verify indication for use. Prime with 2 units of insulin prior to administration. Basal (long acting) insulin for subcutaneous administration only. Do not mix with any other insulin. Pre-filled pens stable 28 days at room temperature. * 2147 (Given - Provider: Naomi Cedillo RN - Comment: BG 239) * 2102 (Given - Provider: Humberto Mario, RN) insulin lispro (HumaLOG) injection 2-10 Units 2-10 Units, subcutaneous, 3 times daily with meals, First dose on A[place] 05/12/25 at 1200, Daytime hyperglycemia dosing. For blood glucose 151-200 mg/dL, give 2 units. For blood glucose 201-250 mg/dL, give 4 units. For blood glucose 251-300 mg/dL, give 6 units. For blood glucose 301-350 mg/dL, give 8 units. For blood glucose 351-400 mg/dL, give 10 units. Give even if NPO or meals skipped. Do NOT give more often then every 4 hours when NPO. Notify prescriber if blood glucose greater than 400 mg/dL.Look-alike/sound-alike medication - verify indication for use. Prime with 2 units of insulin prior to administration. Prandial/supplemental Insulin. Pre-filled pens stable 28 days at room temperature. Insulin lispro should be administered within 15 minutes before or immediately after a meal. * 0800 (Not Given - Provider: Kailee Gtz RN - Reason: Order parameters not met) * 1318 (Given - Provider: Kailee Gtz RN) * 1627 (Given - Provider: Kailee Gtz RN) * 0800 (Not Given - Provider: Leeann Archer RN - Reason: Order parameters not met - Comment: 125) * 1258 (Given - Provider: Leeann Archer RN - Comment: 163) * 1608 (Given - Provider: Leeann Archer RN - Comment: 237) * 0848 (Given - Provider: Elizabeth Austin RN - Comment: BS 161) insulin lispro (HumaLOG) injection 2-8 Units 2-8 Units, subcutaneous, Nightly, First dose on [place] 05/12/25 at 2200, Bedtime hyperglycemia dosing.For blood glucose 201-250 mg/dL, give 2 units. For blood glucose 251-300 mg/dL, give 4 units. For blood glucose 301-350 mg/dL, give 6 units. For blood glucose 351-400 mg/dL, give 8 units. Give even if NPO or meals skipped. Do NOT give more often then every 4 hours when NPO. Notify prescriber if blood glucose greater than 400 mg/dL. Look-alike/sound-alike medication - verify indication for use. Prime with 2 units of insulin prior to administration. Prandial/supplemental Insulin. Pre-filled pens stable 28 days at room temperature. Insulin lispro should be administered within 15 minutes before or immediately after a meal. * 2148 (Given - Provider: Naomi Cedillo, RN - Comment: BG 239) * 210 (Given - Provider: Humberto Mario RN - Comment: BG 221) micafungin (MYCAMINE) 100 mg in sodium chloride 0.9 % 100 mL IVPB W/ADAPTER 100 mg, intravenous, at 100 mL/hr, Administer over 60 Minutes, Every 24 hours, First dose on 05/14/25 at 1530, For Vial-2-Bag: Attach bag and vial to adapter - Use immediately after activating; dissolve drug prior to administration., Approved Indication: Prolonged QTc interval, Authorizing Servic e: ID consult has been placed, I acknowledge that an appropriate consult is REQUIRED to use this drug at [facility], [facility] and [facility] per [facility]-approved policy # MM 1.15: Yes * 1526 (New Bag - Provider: Kailee Gtz RN) * 1626 (Stop Bag - Provider: Kailee Gtz RN) * 1605 (New Bag - Provider: Leeann Archer, LIANE) * 1705 (Stop Bag - Provider: Leeann Archer, LIANE) polyethylene glycol (GLYCOLAX) packet 17 g (CANCELED) 17 g, oral, Daily, First dose on Fri05/13/25 at 1215, Look-alike/sound-alike medication - verify indication for use. Dissolve 1 packet (17 gm) in 8 ounces of water, juice, soda, coffee or tea. * 0911 (Given - Provider: Kailee Gtz RN) polyethylene glycol (GLYCOLAX) packet 17 g 17 g, oral, 2 times daily, First dose (after last modification) on Fri05/18/25 at 2100, Look-alike/sound-alike medication - verify indication for use. Dissolve 1 packet (17 gm) in 8 ounces of water, juice, soda, coffee or tea. * 2148 (Given - Provider: Naomi Cedillo RN) * 0910 (Given - Provider: Leeann Archer RN) * 2054 (Given - Provider: Humberto Mario, LIANE) * 0900 (Not Given - Provider: Elizabeth Austin RN - Reason: Patient/family refused) sennosides-docusate sodium (SENOKOT-S) 8.6-50 mg 2 tablet 2 tablet, oral, 2 times daily, First dose on Fri05/18/25 at 0900 * 0910 (Given - Provider: Kailee Gtz RN) * 214 (Given - Provider: Naomi Cedillo RN) * 0908 (Given - Provider: Leeann Archer RN) * 2055 (Given - Provider: Humberto Mario, RN) * 0844 (Given - Provider: Elizabeth Austin, RN) sodium chloride 0.9 % flush 10 mL(Linked Group 1) 10 mL, intravenous, Every 12 hours, First dose on Fri05/18/25 at 1015, PICC line. Administer 10 mL per lumen; 10 mL total (for single lumen flush) * 1318 (Given - Provider: Kailee Gtz, RN) * 2200 (Given - Provider: Naomi Cedillo, LIANE) * 1015 (Given - Provider: Leeann Archer, LIANE) * 2056 (Given - Provider: Humberto Mario, LIANE) * 1015 (Given - Provider: Elizabeth Austin, LIANE) sodium chloride 0.9 % flush 3 mL 3 mL, intravenous, Every 12 hours scheduled, First dose on Fri05/08/25 at 2100 * 0911 (Given - Provider: Kailee Gtz, LIANE) * 2200 (Given - Provider: Naomi Cedillo, LIANE) * 0911 (Given - Provider: Leeann Archer, LIANE) * 2104 (Given - Provider: Humberto Mario, LIANE) * 0852 (Given - Provider: Elizabeth Austin, LIANE) Medication Order/01/2025 acetaminophen (TYLENOL) tablet 325 mg 325 mg, oral, Every 6 hours PRN, mild pain - pain scale 1-3, moderate pain - pain scale 4-6, Starting on Fri05/10/25 at 1254 bisacodyL (DULCOLAX) suppository 10 mg 10 mg, rectal, 2 times daily PRN, constipation, Starting on Fri05/13/25 at 1212, Look-alike/sound-alike medication - verify indication for use. calcium gluconate 3,000 mg in sodium chloride 0.9 % 100 mL IVPB 3,000 mg, intravenous, at 43.3 mL/hr, Administer over 3 Hours, As needed, ionized calcium 3.5 to 3.9 mg/dL, Starting on Fri05/09/25 at 1354, IV Administration of calcium via a central or deep vein preferred. Avoid administration in small hand veins VESICANT (RED) calcium gluconate 4,000 mg in sodium chloride 0.9 % 250 mL IVPB 4,000 mg, intravenous, at 72.5 mL/hr, Administer over 4 Hours, As needed, ionized calcium 3.4 mg/dLor less, Starting on Fri05/09/25 at 1354, IV administration of calcium via a central or deep vein is preferred. Avoid administration in small hand veins. VESICANT (RED) calcium gluconate IVPB 2000 mg/100 mL (20 mg/mL premix) 2,000 mg, intravenous, at 50 mL/hr, Administer over 2 Hours, As needed, ionized calcium 4 to 4.3 mg/dL, Starting on Fri05/09/25 at 1354, IV Administration of calcium via a central or deep vein preferred. Avoid administration in small hand veins VESICANT (RED) dextrose (GLUTOSE) 40 % gel 15 g 15 g, oral, As needed, low blood sugar, blood glucose less than 70 mg/dL, Starting on A[place] 05/12/25 at 1058, If patient conscious and taking PO. If blood glucose is not greater than 70 mg/dL after initial treatment, repeat treatment. dextrose 5 % (D5W) infusion 100 mL/hr, intravenous, Continuous PRN, blood glucose less than 70 mg/dL, Starting on A[place]ley 05/12/25 at 1058, For 365 days, Use immediately following dextrose 50% or glucagon treatment for patients whoare unconscious or NPO. Contact prescriber for additional orders. If blood glucose is not greater than 70 mg/dL after initial treatment, repeat treatment. dextrose 50 % in water (D50W) 50% solution 25 mL 25 mL, intravenous, As needed, low blood sugar, blood glucose less than 70 mg/dL and unconscious orNPO with IV access, Starting on A[place]ley 05/12/25 at 1058, Push over 1-3 minutes STAT. If conscious and not NPO, immediately follow with meal tray or high protein (7 grams) snack if tray not available. IfNPO, initiate 5% dextrose in water at 100 mL/hr and contact prescriber for additional orders. If blood glucose is not greater than 70 mg/dL after initial treatment, repeat treatment. VESICANT (RED) Warning: HYPERTONIC solution. glucagon HCL injection 1 mg 1 mg, intramuscular, As needed, low blood sugar, blood glucose less than 70 mg/dL and unconscious or NPO without IV access., Starting on A[place]ley 05/12/25 at 1058, If conscious and not NPO, immediately follow with meal tray or high protein (7Grams) snack if tray not available. If NPO, initiate IV 5% Dext sterling/Water at 100 mL/hr and contact prescriber for additional orders. If blood glucose is not greater than 70 mg/dL after initial treatment, repeat treatment. guaiFENesin (ROBITUSSIN) 100 mg/5 mL syrup 200 mg 200 mg, oral, Every 4 hours PRN, congestion, Starting on Fri05/11/25 at 1136, Look-alike/sound-alike medication - verify indication for use. ipratropium-albuteroL (DUONEB) 0.5 mg-3 mg(2.5 mg base)/3 mL nebulizer solution 3 mL 3 mL, nebulization, Every 4 hours PRN, wheezing, Starting on Fri05/13/25 at 1515, Implement INPATIENT/ED Bronchodilator Clinical Practice Guidelines? Yes magnesium sulfate IVPB 2000 mg/50 mL in iso-osmotic water (40 mg/mL premix) 2,000 mg, intravenous, at 25 mL/hr, Administer over 120 Minutes, As needed, Magnesium level 1.7 to 1.9 mg/dL, or Ionized Magnesium level 0.45 to 0.5 mmol/L., Starting on Fri05/09/25 at 1358, Recheckmagnesium level 4 hours after infusion complete. With each magnesium result continue the replacement orders as needed. magnesium sulfate IVPB 4000 mg/100 mL in iso-osmotic water (40 mg/mL premix) 4,000 mg, intravenous, at 25 mL/hr, Administer over 240 Minutes, As needed, Magnesium level 1.6 mg/dL or less, or Ionized Magnesium level 0.44 mmol/L or less, Starting on Fri05/09/25 at 1358, Recheck magnesium level 4 hours after infusion complete. With each magnesium result continue the replacement orders as needed. midodrine (PROAMATINE) tablet 5 mg 5 mg, oral, 3 times daily PRN, For systolic less than 100, Starting on 05/14/25 at 0748, Look-alike/sound-alike medication - verify indication for use. ondansetron (PF) (ZOFRAN) injection 4 mg 4 mg, intravenous, Every 6 hours PRN, nausea, vomiting, Starting on Fri05/08/25 at 2027, Intravenous administration preferred to be given over 2-5 minutes. potassium chloride (K-TAB,KLOR-CON) CR tablet 20-60 mEq(Linked Group 2) 20-60 mEq, oral, As needed, Potassium Supplementation, Starting on Fri05/09/25 at 1350, Progress to oral potassium replacement when patient tolerating oral intake. If dose administered, recheck potassium level 4 hours after last dose. For potassium level 3.4 to 3.7 mmol/L =20 mEq. For potassium level 3.1 to 3.3 mmol/L =40 mEq. For potassium level 3 mmol/L or less =60 mEq. Do not crush or chew. * 0911 (Given - Provider: Kailee Gtz RN) potassium chloride (KAYCIEL) 20 mEq/15 mL solution 20-60 mEq(Linked Group 2) 20-60 mEq, oral, As needed, Potassium Supplementation, Starting on Fri05/09/25 at 1350, Progress to oral potassium replacement when patient tolerating oral intake. If dose administered, recheck potassium level 4 hours after last dose. For potassium level 3.4 to 3.7 mmol/L =20 mEq. For potassium level 3.1 to 3.3 mmol/L =40 mEq. For potassium level 3 mmol/L or less =60 mEq. Must dilute before use - Mix in 3-8 ounces of water or juice before administration When administering in feeding tube, flush before and after per policy and monitor potassium levels * 0911 (See Alternative - Provider: Kailee Gtz RN) potassium chloride IVPB 10 mEq/100 mL in water (0.1 mEq/mL premix)(Linked Group 2) 10 mEq, intravenous, at 100 mL/hr, Administer over 60 Minutes, As needed, POTASSIUM REPLACEMENT, Starting on Fri05/09/25 at 1350, IV if unable to use oral/enteral with the current dosing strategies For potassium level 3.4 to 3.7 mmol/L =20 mEq. For potassium level 3.1 to 3.3 mmol/L =40 mEq. For potassium level 3 mmol/L or less =60 mEq. Use central line when applicable. Recheck potassium level 1 hour after total IVPB infusion complete With each potassium result continue the replacement orders as needed VESICANT (YELLOW) Infuse each 10 mEq over a minimum of 1 hour. * 0911 (See Alternative - Provider: Kailee Gtz RN) sod phos di, mono-K phos mono (K-PHOS NEUTRAL) 250 mg tablet 2 tablet(Linked Group 3) 2 tablet, oral, As needed, for phosphorus level 2.3 mg/dL or less. Do not administer if potassium is more than 4.5, Starting on Fri05/09/25 at 1358, If dose administered, recheck phosphorus level 4 hours after last dose. Look-alike/sound-alike medication - verify indication for use. Give with a full glass of water. sodium chloride 0.9 % flush 10 mL(Linked Group 1) 10 mL, intravenous, As needed, line care, Starting on Fri05/18/25 at 1008, PICC line. Administer 10mL to each lumen before and after each use. Administer 10 mL per lumen; 10 mL total (for single lumen flush) sodium chloride 0.9 % flush 20 mL(Linked Group 1) 20 mL, intravenous, As needed, line care, Starting on Fri05/18/25 at 1008, PICC line. Administer 20mL to each lumen after lab draws, blood infusion, and meds known to precipitate. Administer 20 mL per lumen; 20 mL total (for single lumen flush) sodium chloride 0.9 % flush 3 mL 3 mL, intravenous, As needed, line care, before and after each intermittent use, Starting on Fri05/08/25 at 2027 sodium chloride 0.9 % flush bag 25 mL, intravenous, at 100 mL/hr, Administer over 15 Minutes, As needed, line care, line care afterIVPB administration, Starting on Fri05/08/25 at 202 sodium chloride 0.9 % infusion () 20 mL/hr, intravenous, Continuous PRN, to maintain patency line #1, Starting on Fri05/18/25 at 1512, For 1 day * 1530 (New Bag - Provider: Kailee Gtz RN) * 1511 (Stop Bag - Provider: Anabella Bhatt RN - Comment: [Order ends at this time. Document the following action when infusion is complete: Stop Bag]) sodium chloride 0.9 % infusion () 20 mL/hr, intravenous, Continuous PRN, to maintain patency line #2, Starting on Fri05/18/25 at 1513, For 1 day * 1525 (New Bag - Provider: Kailee Gtz RN) * 1512 (Stop Bag - Provider: Anabella Bhatt RN - Comment: [Order ends at this time. Document the following action when infusion is complete: Stop Bag]) sodium phosphate 20 mmol in sodium chloride 0.9 % 100 mL IVPB(Linked Group 3) 20 mmol, intravenous, at 26.7 mL/hr, Administer over 4 Hours, As needed, for phosphorus level 2.3 mg/dL or less., Starting on Fri05/09/25 at 1358, Administer over 4 hours via dedicated line (centralline). If administered, recheck phosphorus level 4 hours after infusion complete. Infuse using central line access. sodium phosphate 20 mmol in sodium chloride 0.9 % 250 mL IVPB(Linked Group 3) 20 mmol, intravenous, at 42.8 mL/hr, Administer over 6 Hours, As needed, for phosphorus level 2.3 mg/dL or less, Starting on Fri05/09/25 at 1358, Administer over 6 hours via dedicated line (peripheral line). If administered, recheck phosphorus level 4 hours after infusion complete. Order Group 1: Consult PICC nurse - Midline (COMPLETED) Reason for consult? Insert Midline IV, Indication: Duration of therapy 14 days or less, Number of Lumen(s): 1 Lumen And sodium chloride 0.9 % flush 10 mLJump to med 10 mL, intravenous, Every 12 hours, First dose on Fri05/18/25 at 1015, PICC line. Administer 10 mL per lumen; 10 mL total (for single lumen flush) And sodium chloride 0.9 % flush 10 mLJump to med 10 mL, intravenous, As needed, line care, Starting on Fri05/18/25 at 1008, PICC line. Administer 10mL to each lumen before and after each use. Administer 10 mL per lumen; 10 mL total (for single lumen flush) And sodium chloride 0.9 % flush 20 mLJump to med 20 mL, intravenous, As needed, line care, Starting on Fri05/18/25 at 1008, PICC line. Administer 20mL to each lumen after lab draws, blood infusion, and meds known to precipitate. Administer 20 mL per lumen; 20 mL total (for single lumen flush) Group 2: potassium chloride (K-TAB,KLOR-CON) CR tablet 20-60 mEqJump to med 20-60 mEq, oral, As needed, Potassium Supplementation, Starting on Fri05/09/25 at 1350, Progress to oral potassium replacement when patient tolerating oral intake. If dose administered, recheck potassium level 4 hours after last dose. For potassium level 3.4 to 3.7 mmol/L =20 mEq. For potassium level 3.1 to 3.3 mmol/L =40 mEq. For potassium level 3 mmol/L or less =60 mEq. Do not crush or chew. Or potassium chloride (KAYCIEL) 20 mEq/15 mL solution 20-60 mEqJump to med 20-60 mEq, oral, As needed, Potassium Supplementation, Starting on Fri05/09/25 at 1350, Progress to oral potassium replacement when patient tolerating oral intake. If dose administered, recheck potassium level 4 hours after last dose. For potassium level 3.4 to 3.7 mmol/L =20 mEq. For potassium level 3.1 to 3.3 mmol/L =40 mEq. For potassium level 3 mmol/L or less =60 mEq. Must dilute before use - Mix in 3-8 ounces of water or juice before administration When administering in feeding tube, flush before and after per policy and monitor potassium levels Or potassium chloride IVPB 10 mEq/100 mL in water (0.1 mEq/mL premix)Jump to med 10 mEq, intravenous, at 100 mL/hr, Administer over 60 Minutes, As needed, POTASSIUM REPLACEMENT, Starting on Fri05/09/25 at 1350, IV if unable to use oral/enteral with the current dosing strategies For potassium level 3.4 to 3.7 mmol/L =20 mEq. For potassium level 3.1 to 3.3 mmol/L =40 mEq. For potassium level 3 mmol/L or less =60 mEq. Use central line when applicable. Recheck potassium level 1 hour after total IVPB infusion complete With each potassium result continue the replacement orders as needed VESICANT (YELLOW) Infuse each 10 mEq over a minimum of 1 hour. Group 3: sodium phosphate 20 mmol in sodium chloride 0.9 % 250 mL IVPBJump to med 20 mmol, intravenous, at 42.8 mL/hr, Administer over 6 Hours, As needed, for phosphorus level 2.3 mg/dL or less, Starting on Fri05/09/25 at 1358, Administer over 6 hours via dedicated line (peripheral line). If administered, recheck phosphorus level 4 hours after infusion complete. Or sodium phosphate 20 mmol in sodium chloride 0.9 % 100 mL IVPBJump to med 20 mmol, intravenous, at 26.7 mL/hr, Administer over 4 Hours, As needed, for phosphorus level 2.3 mg/dL or less., Starting on Fri05/09/25 at 1358, Administer over 4 hours via dedicated line (centralline). If administered, recheck phosphorus level 4 hours after infusion complete. Infuse using central line access. Or sod phos di, mono-K phos mono (K-PHOS NEUTRAL) 250 mg tablet 2 tabletJump to med 2 tablet, oral, As needed, for phosphorus level 2.3 mg/dL or less. Do not administer if potassium is more than 4.5, Starting on Fri05/09/25 at 1358, If dose administered, recheck phosphorus level 4 hours after last dose. Look-alike/sound-alike medication - verify indication for use. Give with a full glass of water. documented in this encounter Additional Health Concerns AssessmentNoted TimePHQ-9 Depression Total Score: 4:55 PM EDT documented as of this encounter Care Teams Team MemberRelationshipSpecialtyStart DateEnd Date Olivia Cazares MD [address] [place] [address] PCP - GeneralFamily [id number]/25documented as of this encounter
[2025-05-21] VITALS (27 sets, daily range): BP systolic 115–139; BP diastolic 61–89; PULSE 68–77; TEMP 36.6; O2SAT 94–100; BMI 33.3
--- NOTE | 2025-05-21 10:28 | ECG_ITS ---
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 Measurements Intervals [place] Rate: 74 P: 3 SC: 210 QRS: -26 QRSD: 122 T: 168 QT: 416 QTc: 444 Interpretive Statements Sinus rhythm with First degree AV block 3334 Anterolateral myocardial infarction, age undetermined 3632 Inferior myocardial infarction, probably recent 5234 Left ventricular hypertrophy with repolarization abnormality 6220 Possible left atrial enlargement 9150 abnormal ECG Compared to ECG 05/04/2025 05:10:11 First degree AV block now present Left ventricular hypertrophy now present Ventricular premature complex(es) no longer present ST (T wave) deviation no longer present Electronically Signed On 05-21-2025 22:47:58 EST by HI PEREZ M.D.
--- NOTE | 2025-05-21 10:28 | XR_ITS ---
The [address] [address] Patient Name: ESTHER TATUM MRN: [id number] date: 1945 Sex: F Assigned Patient Location: ER Current Patient Location: ED.MAIN Accession/Order Number: [id number] Exam Date: 05/21/2025 10:45 Report Date: 05/21/2025 11:21 At the request of: ANAT NG DO Procedure: XR chest 1V XR chest 1V 05/21/2025 10:58 AM SIGNS AND SYMPTOMS: ^CHF , chronic shortness of breath PROTOCOL: Frontal radiograph of the chest COMPARISON: 05/08/2025 FINDINGS: The trachea is midline. Atherosclerotic changes are noted in the thoracic aorta. Sternotomy wires overlie the mediastinum. There is mild cardiomegaly. There is a small left-sided pleural effusion. The bony thorax is intact. XR/XR chest 1V IMPRESSION: There is mild cardiomegaly with a small left-sided pleural effusion. This has improved when compared to the prior exam. Impression dictated by: Rhett Ponce M.D. 05/21/2025 11:21 AM Dictation Location: [facility] [employer] Electronically authenticated by: [id number] Y Date: 05/21/2025 11:21
--- OUTSIDE RECORDS SUMMARY | 2025-05-21 10:32 | XMS_ITS | Clinical Summary ---
Author Organization [facility] Address [address] [place] [address] Phone Care Team Providers Care Base Wad Operator Adjuster Name Role Phone Olivia Cazares MD Primary Care Provider [phone] Allergies Active AllergyReactionsCriticalityNoted DateCommentsAce InhibitorsOtherLow 07/08/20233178ZdrupidxvrsiRwwyshaCwywce18/26/0924PetnlybiboyjojXxqxpVec30/26/2023 Kpreuon-Rru-Vqp Reductase DbgddxvjsyZyzlyxlBvw82/26/2023 Medications MedicationSigDispense QuantityRefillsLast FilledStart DateEnd DateStatus allopurinol (Zyloprim) 300 mg tablet Take 1 tablet (300 mg) by mouth once daily.01/17/2021ctive cholecalciferol (Vitamin D-3) 5,000 Units tablet Take 1 tablet (5,000 Units) by mouth every other day. with food2023ctive gabapentin (Neurontin) 300 mg capsule Take 1 capsule (300 mg) by mouth 2 times a day.07/03/2023ctive NovoLOG Flexpen U-100 Insulin 100 unit/mL (3 mL) pen INJECT 20 UNITS VIA SUBCUTANEOUS ROUTE NEEDED PER SLIDING SCALE02/11/2023 Active Basaglar KwikPen U-100 Insulin 100 unit/mL (3 mL) pen Inject 50 Units under the skin once daily at bedtime.07/03/2023ctive rosuvastatin (Crestor) 5 mg tablet Indications:Mixed hyperlipidemiaTake 1 tablet (5 mg) by mouth once daily at bedtime. 90 tablet ctive oxybutynin XL (Ditropan-XL) 15 mg 24 hr tablet 1 tablet (15 mg) once daily.12/11/2023ctive carvedilol (Coreg) 25 mg tablet Indications:Ischemic cardiomyopathyTake 1 tablet (25 mg) by mouth 2 times a day. 180 tablet 312/263335/5Active aspirin 81 mg EC tablet Indications:CAD, multiple vesselTake 1 tablet (81 mg) by mouth once daily. 90 tablet 301//038258/6Active ferrous sulfate 325 (65 Fe) MG EC tablet Take 1 tablet by mouth every other day.02/27/2024ctive lisinopril 5 mg tablet Take 1 tablet (5 mg) by mouth early in the morning..5Active furosemide (Lasix) 40 mg tablet Indications:Primary hypertensionTake 1 tablet (40 mg) by mouth once daily. 90 tablet 503/6Active clopidogrel (Plavix) 75 mg tablet Indications:History of angioplasty,Occlusion and stenosis of right carotid arteryTake 1 tablet (75 mg) by mouth once daily. 90 tablet 306///6Active Active Problems ProblemNoted DateDiagnosed DateChronic kidney disease, stage 3b08/11/2024MI 33.0-33.9,adult09/17/2023 Assessment & Plan (08/12/2024 9:45 AM EST): Reviewed the merits of healthy lifestyle choices on overall cardiovascular health. Former xdnwyr6909/17/2023ruit of right carotid myyday1707/08/2023AD, multiple bdkgmm8007/08/2023 Assessment & Plan (08/12/2024 9:41 AM EST): November 2016 CABG x 15 June 2017 cardiac cath Distal/mid RCA PCI/GURU x 2 HACKETT-LAD was patent Sequential saphenous vein graft from PDA-OM was occluded LVEF 45% October 2023 MPI no ischemia, no infarct. EF 48%. Current daily activity less than 4 METS. Ioblzsvrp93/26/5773Gobky12/26/2023HTN (hypertension)07/08/2023 Assessment & Plan (08/12/2024 9:41 AM EST): Asymptomatic hypotension noted in the office today. 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 Chanel retired. During January 2024 hospitalization for hydronephrosis she had a CT of the abdomen that was unremarkable in regards to aortic aneurysm. S/P CABG x SOB (shortness of breath) on ewbybeky87/26/2023Type 2 diabetes zqekpkcg19/26/2023 Assessment & Plan (08/12/2024 9:45 AM EST): On WILLIAMS/statin Recent hemoglobin A1c 8.2 Resolved Problems ProblemNoted DateDiagnosed DateResolved DateAbnormal EKG1/12/2023 History of oetewgusloo03/26/202301/History of [place] (myocardial infarction) / Encounters DateTypeDepartmentCare WkfhOfxstwxnzub40/05/2025Scanned Document [facility] [address] [place] [phone] Scanning, Generic Provider 04/12/2025Scanned Document [facility] [address] [place] [address] Scanning, Generic Provider 04/11/2025Scanned Document [facility] [address] [place] [address] Scanning, Generic Provider 04/09/2025Scanned Document [facility] [address] [place] [address] Scanning, Generic Provider 04/07/2025Scanned Document [facility] [address] [place] [address] Scanning, Generic Provider 03/07/2025Telephone [facility] [address] [phone] Kaleigh Funez, 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 Pre-op Clearance; med holdfrom Last 3 Months Immunizations ImmunizationAdministration DatesNext DueInfluenza, injectable, quadrivalent 07/03/2022fizer Purple Cap FTIJ-LxC-474/01/2021,08/30/2020,08/09/2020 Pneumococcal conjugate vaccine, 13-valent (PREVNAR 13)04/13/2018,10/30/2016 Pneumococcal polysaccharide vaccine, 23-valent, age 2 years and older (PNEUMOVAX 23)10/12/2016 Family History Medical HistoryRelationNameCommentsKidney cancerBrotherHeart diseaseFather HypertensionMotherRelationNameStatusCommentsBrotherFatherMother Social History Tobacco UseTypesPacks/DayYears UsedDateSmoking Tobacco: FormerCigarettesQuit: 2000Smokeless Tobacco: NeverAlcohol UseStandard Drinks/WeekCommentsYes0 (1 standard drink = 0.6 oz pure alcohol)occasionalCommentsUnknownSex and Gender InformationValueDate RecordedSex Assigned at BirthNot on fileLegal Sex Koinkt5906/07/2022 9:40 PM ESTGender IdentityNot on fileSexual OrientationNot on file Last Filed Vital Signs Vital SignReadingTime TakenCommentsBlood Hbtlkhpo567/60008/11/2024 3:39 PM EST Uwlgy5647 3:23 PM ESTTemperature--Respiratory Rate--Oxygen Saturation-- Inhaled Oxygen Concentration--Zyhspc73.8 kg (165 lb)08/11/2024 3:23 PM ESTHeight 149.9 cm (4' 11 )08/11/2024 3:23 PM ESTBody Mass Index33.33008/11/2024 3:23 PM EST Plan of Treatment DateTypeDepartmentCare Team (Latest Contact Info)Awqvrprbenu48/12/2026 9:45 AM ESTAppointment [facility] [address] [place] [phone] 08/23/2025 11:20 AM ESTOffice Visit [facility] [address] [place] [phone] Tom Cobb, [address] [place] [address] Health MaintenanceDue DateLast DoneCommentsDiabetes: Celiac Disease Screening 1945Diabetes: Urine Protein Qfxqosljz1945TSH Level1945Vitamin B-12108/04/1944Hepatitis C Cflmkihue91/22/1963Hepatitis A Vaccines (1 of 2 - Risk 2-dose series)1964DTaP/Tdap/Td Vaccines (1 - Tdap)1967Zoster Vaccines (1 of 2)1995Hepatitis B Vaccines (1 of 3 - Risk 3-dose series) 2005Bone Density Scan2010Diabetes: Hemoglobin A1C09/15/2019 06/16/2019RSV High Risk: (Elderly (60+) or Population) (1 - 1-dose 75+ series)2020Creatinine LevelLipid Panel06/16/2020 06/16/2019Potassium LevelMedicare Annual Wellness Visit (AWV)/10/2021, 03/13/2020, 12/10/2016Diabetes: Retinopathy Screening , 03/02/2019, 01/19/2019, Additional history existsInfluenza Vaccine (#1)512/, 07/01/2019, 07/14/2018, Additional history existsCOVID-19 Vaccine ( season)512/11/2021, 04/13/2021, 08/30/2020, Additional history iqenxgHprapzzbhnvtag55/25/202609/ Pneumococcal JwuwppmSlrumaoob23/04/2018, 04/13/2018, 10/30/2016, Additional history existsHIB VaccinesAged OutNo longer eligible based on patient's age to complete this topicHPV VaccinesAged OutNo longer eligible based on patient's age to complete this topicIPV VaccinesAged OutNo longer eligible based on patient's age to complete this topicMeningococcal VaccineAged OutNo longer eligible based on patient's age to complete this topicRotavirus VaccinesAged OutNo longer eligible based on patient's age to complete this topic Procedures Procedure NamePriorityDate/TimeAssociated DiagnosisCommentsOUTSIDE LAB SCAN 04/17/2025 ILICJCDJVTYLWZ40/25/2025 HEMOGLOBIN F9JSdrwdym65/04/2019 12:05 PM EST LIPID BJVPTLvsetgk07/04/2019 12:05 PM EST COMPREHENSIVE METABOLIC BSFQWQqwgwre22/04/2019 12:05 PM EST from Last 3 Months or Most Recently Relevant to Health Maintenance Results * OUTSIDE LAB SCAN (04/17/2025) Narrative 04/17/2025 Ordered by an unspecified provider. Authorizing ProviderResult TypeResult StatusGeneric Provider ScanningOUTSIDE SCANFinal Result * Echocardiogram (04/07/2025) Narrative 04/07/2025 Ordered by an unspecified provider. Authorizing ProviderResult TypeResult StatusGeneric Provider ScanningCV ECHO PROCEDURESFinal Result * Hemoglobin A1C (06/16/2019 12:05 PM EST)ComponentValueRef RangeTest Method Analysis TimePerformed AtPathologist SignatureHemoglobin A1C7.5%[facility] Comment: ? Diagnosis of Diabetes-Adults Non-Diabetic: < or = 5.6% Increased risk for developing diabetes: 5.7-6.4% Diagnostic of diabetes: > or = 6.5% . ? Monitoring of Diabetes ?Age (y) ? Therapeutic Goal (%) Adults: >18 <7.0 Pediatrics: 13-18 <7.5 7-12 <8.0 ? 0- 6 ?7.5-8.5 [place] [employer]. Diabetes Care 33(S1), Jul 2009. Estimated Average Pemmfem917NX/DLENCOMPASS HEALTH [facility] LABSpecimen (Source)Anatomical Location / LateralityCollection Method / VolumeCollection TimeReceived Time06/16/2019 12:05 PM EST06/16/2019 11:43 PM EST Narrative Authorizing ProviderResult TypeResult StatusKim Paul BARRY BLOOD ORDERABLESFinal ResultPerforming OrganizationAddressCity/State/ZIP CodePhone Number [facility] * (ABNORMAL) Lipid Panel (06/16/2019 12:05 PM EST)ComponentValueRef RangeTest MethodAnalysis TimePerformed AtPathologist LgddhtooxSohyzclohgj8507 - 199 mg/dLGOLISANO [facility] LABComment: . ?AGE ?DESIRABLE ?? BORDERLINE HIGH ?? HIGH 0-19 Y 0 - 169 170 - 199 >/= 200 20-24 Y 0 - 189 190 - 224 >/= 225 >24 Y 0 - 199 200 - 239 >/= 240 All ranges are based on fasting samples. Specific therapeutic targets will vary based on patient-specific cardiac risk. . Pediatric guidelines reference:Pediatrics 2011, 128(S5). Adult guidelines reference: NCEP ATPIII Guidelines, ??NANCIE 2001, 258:2486-97 . Venipuncture immediately after or during the administration of Metamizole may lead to falsely low results. Testing should be performed immediately prior to Metamizole dosing. HDL39.0(A)mg/dLGOLISANO [facility] LABComment: . ?AGE ?VERY LOW ?? LOW ? NORMAL ?HIGH ?? 0-19 Y < 35 < 40 40-45 ---- 20-24 Y ---- < 40 >45 ---- >24 Y ---- < 40 40-60 >60 . Cholesterol/HDL Ratio4.7[facility] LABComment: REF VALUES DESIRABLE < 3.4 HIGH RISK > 5.0 POZ922 - 99 mg/dLGOLISANO [facility] LABComment: . ? NEAR ?BORD ?AGE ?DESIRABLE ??OPTIMAL ?HIGH ? HIGH ? VERY HIGH 0-19 Y 0 - 109 --- 110-129 >/= 130 ---- 20-24 Y 0 - 119 --- 120-159 >/= 160 ---- >24 Y 0 - 99 100-129 130-159 160-189 >/=190 . VLDL51(H)0 - 40 mg/dLGOLISANO [facility] QPUVoponxdxucpnb251(H)0 - 149 mg/dL [facility] LABComment: . ?AGE ?DESIRABLE ?? BORDERLINE HIGH ?? HIGH ? VERY HIGH 0 D-90 D ?19 - 174 ? ---- ? ---- ?---- 91 D- 9 Y 0 - 74 [...] immediately prior to Metamizole dosing. Non HDL Qwznpoiopei306qs/dLGOLISANO [facility] LABComment: ?AGE ?DESIRABLE ?? BORDERLINE HIGH ?? HIGH ? VERY HIGH 0-19 Y 0 - 119 120 - 144 >/= 145 >/= 160 20-24 Y 0 - 149 150 - 189 >/= 190 ---- >24 Y 30 MG/DL ABOVE LDL CHOLESTEROL GOAL . Specimen (Source)Anatomical Location / LateralityCollection Method / Volume Collection TimeReceived Time06/16/2019 12:05 PM EST06/16/2019 5:59 PM EST Narrative Authorizing ProviderResult TypeResult StatusTom BARRY BLOOD ORDERABLESFinal ResultPerforming OrganizationAddressCity/State/ZIP CodePhone Number [facility] * (ABNORMAL) Comprehensive Metabolic Panel (06/16/2019 12:05 PM EST)Component ValueRef RangeTest MethodAnalysis TimePerformed AtPathologist SignatureGlucose 115(H)74 - 99 mg/dLG[facility]ISANO [facility] QXFMhjjyv365164 - 145 mmol/[facility] LABPotassium5.4(H)3.5 - 5.3 mmol/[facility] LAB Fjtmwdbx77260 - 107 mmol/[facility] HUZCtcwgwourmi4467 - 32 mmol/L [facility] LABAnion Dya2852 - 20 mmol/[facility] LAB Urea Vidaldso83(H)6 - 23 mg/dLG[facility]ISANO [facility] LABCreatinine1.32(H)0.50 - 1.05 mg/dLGOLISANO [facility] LABGLOMERULAR FILTRATION RATE-NON ROUSAOUE16(A)>60 mL/min/1.45f6YSGLXPGOLISANO CHILDR[facility]'S [facility] LABGLOMERULAR FILTRATION RATE- PEXZGCFV26(A)>60 mL/min/1.62l9TEQZUTGOLISANO CHILDREN'S [facility] LABComment: CALCULATIONS OF ESTIMATED GFR ARE PERFORMED USING THE MDRD STUDY EQUATION FOR THE IDMS-TRACEABLE CREATININE METHODS. CLIN CHEM 2007;53:766-72 Calcium9.88.6 - 10.3 mg/dLGOLISANO [facility] LABAlbumin4.13.4 - 5.0 g/dL [facility] LABAlkaline Vwfiowsqkwz8879 - 136 U/[facility] LABTotal Protein7.56.4 - 8.2 g/dLGOLISANO [facility] JNGULS206 - 39 U/[facility] LABTotal Bilirubin0.50.0 - 1.2 mg/dLGOLISANO [facility] LABALT (SGPT)127 - 45 /[facility] LABComment: Patients treated with Sulfasalazine may generate falsely decreased results for ALT. Specimen (Source)Anatomical Location / LateralityCollection Method / Volume Collection TimeReceived Time06/16/2019 12:05 PM EST06/16/2019 5:59 PM EST Narrative Authorizing ProviderResult TypeResult StatusKim Paul Lee MDLAB BLOOD ORDERABLESFinal ResultPerforming OrganizationAddressCity/State/ZIP CodePhone Number [facility] from Last 3 Months or Most Recently Relevant to Health Maintenance Insurance Care Teams Team MemberRelationshipSpecialtyStart DateEnd Date Olivia Cazares MD [facility] - [facility]09/17/23
--- OUTSIDE RECORDS SUMMARY | 2025-05-21 10:32 | XMS_ITS | Continuity of Care Document ---
Author Organization [facility] Address [address] [place] [address] Care Team Providers Care College Specialist Name Role Phone Olivia Cazares MD Attending Physician Medications Medication Frequency Instructions Diagnosis Start Date End Date Status Last Administered acetaminophen 500 mg tablet Every 8 Hours - PRN 2 tablets, oral, Every 8 Hours - PRN, 2 tablets to equal 1000mg Z96.649 : Presence of unspecified artificial hip joint 025 05/03 Not Active allopurinol 300 mg tabletOnce A Day1 tablet, oral, Once A DayM10.9 : Gout, awxwqfbrtbi08Not Rxmfts3004/19/2025 08:05 AMallopurinol 100 mg tabletOnce A Day1 tab, oral, Once A DayM10.9 : Gout, afyazssoair37/07/2025 05/03/2025Not Kpissg5505/02/2025 08:05 AMaspirin 81 mg tablet,delayed release (DR/EC)Once A Day1 tablet, oral, Once A DayZ95.828 : Presence of other vascular implants and pctqus60/Not Ujbeop9005/02/2025 08:05 AMatorvastatin 20 mg tabletAt Javheuk54xc, oral, At Bedtime Not Wxxrjq3105/01/2025 09:00 PMcarvedilol 3.125 mg tabletTwice A Day1 tablet, oral, Twice A DayI10 : Essential (primary) jddajvpexnbn79/03/2025 05/03/2025Not Khvamn4605/02/2025 08:05 AMcefuroxime axetil 250 mg tabletTwice A Day1 tablet, oral, Twice A DayN39.0 : Urinary tract infection, site not ndqiscwux00Not Uvrlju6004/25/2025 09:17 PMcefuroxime axetil 250 mg tabletTwice A Day1 tablet, oral, Twice A DayB96.1 : Klebsiella pneumoniae [K. pneumoniae] as the cause of diseases classified srxslguax61 Not Hcekak9705/02/2025 08:05 AMcholecalciferol (vitamin D3) 125 mcg (5,000 unit) capsuleOnce A Day Every Other Day1 capsule, oral, Once A Day Every Other Day, Vit D deficiency Not Arkgab6305/01/2025 10:16 AMclopidogrel 75 mg tabletOnce A Day1 tablet, oral, Once A DayZ95.828 : Presence of other vascular implants and jqrtvq19Not Yfshia6705/02/2025 08:05 AMFluzone High-Dose (PF) (flu vacc gb5091-47(65yr up)-pf) 180 mcg/0.5 mL syringeOnce - One Time0.5 ml, intramuscular, Once - One Time Not Tfcjmr8404/26/2025 01:27 PMfurosemide 40 mg tabletOnce A Day1 tablet, oral, Once A DayI50.9 : Heart failure, xxrfdxicxzn52/03/2025 05/03/2025Not Ueljil1705/02/2025 08:05 AMgabapentin 300 mg capsuleTwice A Day 300mg, oral, Twice A Day Not Ksqhnz7304/29/2025 08:13 AMgabapentin 100 mg capsuleAt Bedtime1 capsule, oral, At ZfdamzfF22.9 : Peripheral vascular disease, ttgimtysgaj32/17/202510/Not Wsifkg6905/01/2025 09:00 PMGlucagon (HCl) Emergency Kit (glucagon hcl) 1 mg recon solnAs Needed1 mg, injection, As Needed, Every 15 minutes as pyzxxkI25.42 : Type 2 diabetes mellitus with diabetic jbzmpuzvwaerfb08Not ActiveGlucagon (HCl) Emergency Kit (glucagon hcl) 1 mg recon solnAs Tzzhwp3gw, injection, As Needed, FSBS< 60 Not ActiveGlucagon Emergency Kit (human) (glucagon) 1 mg recon solnAs Needed1 mg, injection, As Needed, FSBS< 60E11.42 : Type 2 diabetes mellitus with diabetic mdbbsgcqnmibxb70Not Activeheparin (porcine) 5,000 unit/mL solutionTwice A Day1 ml, injection, Twice A DayI73.9 : Peripheral vascular disease, ixejwcjerhl15Not Tpnzil0404/19/2025 08:05 AMImodium A-D (loperamide) 2 mg tabletEvery 6 Hours - PRN2 mg, oral, Every 6 Hours - PRNR19.7 : Diarrhea, qpksguhbieh71Not Active 04/16/2025 11:01 AMInsta-Glucose (with dextrin) (zkefjgxy-zzbqyix-auigcge) 24 gram/31 gram gelAs Gpkhke46uh/31gm, oral, As Needed, Every 15 vcwujhzN13.42 : Type 2 diabetes mellitus with diabetic trlmkeeoodpzbb29Not Activeinsulin glargine-yfgn 100 unit/mL (3 mL) insulin penAt Xnnbqmd34 units, subcutaneous, At AljjorhM39.42 : Type 2 diabetes mellitus with diabetic yegelaktsyjhkl40Not Bmlxpq4704/29/2025 10:03 PMinsulin lispro 100 unit/mL solutionBefore Meals and At BedtimePer Sliding Scale, subcutaneous, Before Meals and At Bedtime, If Blood Sugar is less than 60, call MD.If Blood Sugar is 150 to 200, give 3 Units.If Blood Sugar is 201 to 250, give 6 Units.If Blood Sugar is 251 to 300, give 9 Units.If Blood Sugar is 301 to 350, give 12 Units.If Blood Sugar is 351 to400, give 15 Units.If Blood Sugar is greater than 400, call .E11.42 : Type 2 diabetes mellitus with diabetic polyneuropathy Not Ripyxr9905/01/2025 05:04 PMipratropium-albuterol 0.5 mg-3 mg(2.5 mg base)/3 mL solution for nebulizationEvery 6 Hours3 mL, inhalation, Every 6 XengbW95.89 : Other forms of acute ischemic heart qomiioq4004/16/2025 05/02/2025Not Qrslfc7304/19/2025 06:10 PMipratropium-albuterol 0.5 mg-3 mg(2.5 mg base)/3 mL solution for nebulizationEvery 6 Hours - PRN3 mL, inhalation, Every 6 Hours - PRNI24.89 : Other forms of acute ischemic heart rbmnqjk9904/20/2025 05/03/2025Not ActiveLantus Solostar U-100 Insulin (insulin glargine) 100 unit/mL (3 mL) insulin penAt Jlkxqlt77 units, subcutaneous, At OwkyshcB22.42 : Type 2 diabetes mellitus with diabetic vvpjpslzafzkat15Not Active 04/17/2025 08:43 PMNovolog FlexPen U-100 Insulin (insulin aspart u-100) 100 unit/mL (3 mL) insulin penBefore Meals and At BedtimePer Sliding Scale, subcutaneous, Before Meals and At Bedtime, If Blood Sugar is less than 60, call .If Blood Sugar is 150 to 200, give 3 Units.If Blood Sugar is 201 to 250, give 6 Units.If Blood Sugar is 251 to 300, give 9 Units.If Blood Sugar is 301 to 350, give 12 Units.If Blood Sugar is 351 to400, give 15 Units.If Blood Sugar is greater than 400, call .E11.42 : Type 2 diabetes mellitus with diabetic cymngttukhfvlm67Not Mwmmrg6404/18/2025 12:06 PMpantoprazole 20 mg tablet,delayed release (DR/EC)Once A Day1 tablet, oral, Once A DayK21.9 : Gastro-esophageal reflux disease without uyiqolvatpw78Not Dqooih9805/02/2025 05:33 AMrosuvastatin 10 mg tabletAt Bedtime1 tablet, oral, At VzhmsjeV11.10 : Atherosclerotic heart disease of [place] coronary artery without angina pkynmokt15Not Hvcjgx3504/17/2025 08:43 PM Problems Code Type Problem ICD Code Effective Date Status ICD-10 Nonobstructive reflu x-associated chronic pyelonephritis N11.0 04/14/2025 Active ICD-10 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, bilateral N13.722 04/14/2025 Active ICD-10 Urinary tract infection, site not specified N39 .0 04/14/2025 Active ICD-10 Type 2 diabetes [place] itus with diabetic polyneuropathy E11.42 04/14/2025 Active ICD-10 Type 2 diabetes [place] itus with mild nonproliferative diabetic retinopathy without macular edema, bilateral E11.3293 04/20/2025 Active ICD-10 Morbid (severe) obes ity due to excess calories E66.01 04/15/2025 Active ICD-10 Anemia, unspecified D64.9 04/14/2025 Activ e ICD-10 Atherosclerotic hear t disease of [place] coronary artery without angina pectoris I25.10 04/14/2025 Active ICD-10 Other forms of acute ischemic heart disease I24 .89 04/14/2025 Active ICD-10 Peripheral vascular disease, unspecified I73.9 04/14/2025 Active ICD-10 Gastro-esophageal re flux disease without esophagitis K21.9 04/14/2025 Active ICD-10 Retroperitoneal fibrosis K68.2 04/14/2025 Active ICD-10 Heart failure, unspecified I50.9 Active ICD-10 Gout, unspecified M10.9 04/14/2025 Active ICD-10 Essential (primary) hypertension I10 08/2024 Active ICD-10 Chronic kidney disease, stage 3b N18.32 08/2024 Active ICD-10 Acute kidney failure, unspecified N17.9 Active ICD-10 Major laceration of liver, subsequent encounter S36.116D 04/14/2025 Active ICD-10 Presence of aortocoronary bypass graft Z95.1 04/14/2025 Active ICD-10 Presence of unspecified artificial hip joint Z9 6.649 04/14/2025 Active ICD-10 Presence of other va scular implants and grafts Z95.828 04/14/2025 Active ICD-10 Klebsiella pneumonia e [K. pneumoniae] as the cause of diseases classified elsewhere B96.1 04/15/2025 A ctive ICD-10 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c kidney disease D63.1 09/2024 Active ICD-10 Hyperparathyroidism, unspecified E21.3 09/2024 Active ICD-10 Ischemic cardiomyopathy I25.5 04/15/2025 A ctive ICD-10 Muscle weakness (generalized) M62.81 2024 Active ICD-10 Unspecified osteoarthritis, unspecified site M1 9.90 04/15/2025 Active ICD-10 Difficulty in walkin g, not elsewhere classified R26.2 04/16/2025 Active ICD-10 Diarrhea, unspecified R19.7 04/16/2025 Act tammie ICD-10 Dysphagia, unspecified R13.10 04/18/2025 Ac tive ICD-10 Other speech disturbances R47.89 04/18/2025 Active Current Allergies and Intolerances No known allergies Vital Signs Height: 59.0 in Date / Time Temperature Pulse (per minute) Respirations (per minute) Systolic BP (mmHg) Diastolic BP (mmHg) O2 Saturation (%) Weight BMI 05/02/2025 12:29 PM 77 94.0 05/02/2025 09:14 AM97.9 [id number] 05/01/2025 12:35 PM97.8 [id number] 05/01/2025 10:11 AM 78 05/01/2025 07:58 AM 74 94.0 04/30/2025 09:04 AM 94.0 04/30/2025 09:03 AM98.1 F [id number] 04/30/2025 06:28 AM 66 94.0 04/29/2025 11:59 PM 63 93.0 04/29/2025 01:15 PM 75 97.0 04/29/2025 11:23 AM 173.2 lbs34.9804/29/2025 11:22 AM98.2 [id number] 04/29/2025 11:21 AM98.2 F 04/29/2025 06:07 AM 63 97.0 04/29/2025 12:00 AM98.0 F 04/28/2025 04:18 PM98.2 F 04/28/2025 11:39 AM98.0 F [id number] 04/28/2025 10:02 AM98.0 F [id number] 04/28/2025 07:41 AM97.4 F 04/27/2025 10:17 AM [id number] 04/26/2025 08:09 AM [id number] 04/25/2025 09:35 AM [id number] 04/24/2025 11:35 AM [id number] 04/15/2025 02:09 PM 182.0 lbs36.76 Advance Directives Directive Note Full Code Insurance Providers Payer Policy type Group Name Group number Policy ID Address Ph one Medicare A Medicare Part A [id number]: Fax:Medicare BMedicare Part B [id number]: Fax:Vaccinations - MedicareLike Medicare Part B [id number] [place] [address] Fax:Medicare A Co Insurance - AARPCommercial Insurance [id number] [place] [address] Fax:Medicare B Co Insurance - [employer]ARPCommercial Insurance [id number] [place] [address] Fax:Private PayPrivate Phone: Fax: Immunizations Vaccine Midwife Practitioner Date Status Dose Series Complete COVID-19 Vaccine Pfizer-BioNTech 07/04/2023 Completed Influenza VaccineSanofi Usafcps1504/26/2025ompleted Procedures Not available for this record Results Name Date Time Positive/Negative Value Unit Range Blood Sugar 05/02/2025 03:00 AM 120.0mg/dLBlood Sugar508:59 PM124.0mg/dLBlood Sugar505:04 PM 266.0mg/dLBlood Sugar512:38 PM188.0mg/dLBlood Sugar503:56 AM 173.0mg/dLBlood Sugar509:04 PM162.0mg/dLBlood Sugar505:24 PM 258.0mg/dLBlood Sugar511:00 AM222.0mg/dLBlood Sugar507:33 AM 126.0mg/dLBlood Sugar509:59 PM261.0mg/dLBlood Sugar504:10 PM 237.0mg/dLBlood Sugar:35 AM205.0mg/dLBlood Sugar506:03 AM 139.0mg/dLBlood Sugar509:02 PM244.0mg/dLBlood Sugar504:18 PM 226.0mg/dLBlood Sugar511:39 AM173.0mg/dLBlood Sugar505:54 AM 142.0mg/dLBlood Sugar510:32 PM262.0mg/dLBlood Sugar503:41 PM 206.0mg/dLBlood Sugar512:22 PM140.0mg/dLBlood Sugar504:12 AM 145.0mg/dLBlood Sugar509:30 PM172.0mg/dLBlood Sugar505:08 PM 221.0mg/dLBlood Sugar512:09 PM250.0mg/dLBlood Sugar505:30 AM 155.0mg/dLBlood Sugar509:16 PM257.0mg/dLBlood Sugar504:54 PM 218.0mg/dLBlood Sugar512:13 PM194.0mg/dLBlood Sugar505:23 AM 179.0mg/dLBlood Sugar508:57 PM233.0mg/dLBlood Sugar503:54 PM 230.0mg/dLBlood Sugar:36 AM171.0mg/dLBlood Sugar504:51 AM 112.0mg/dLBlood Sugar:16 PM255.0mg/dLBlood Sugar:42 PM 371.0mg/dLBlood Sugar:31 AM224.0mg/dLBlood Sugar505:31 AM 82.0mg/dLBlood Sugar:26 PM151.0mg/dLBlood Sugar:53 PM 236.0mg/dLBlood Sugar:59 AM146.0mg/dLBlood Sugar:18 AM 122.0mg/dLBlood Sugar508:23 PM141.0mg/dLBlood Sugar:34 PM 206.0mg/dLBlood Sugar:09 PM262.0mg/dLBlood Sugar506:00 AM 117.0mg/dLBlood Sugar:00 PM263.0mg/dLBlood Sugar504:41 PM 209.0mg/dLBlood Sugar:11 AM276.0mg/dLBlood Sugar504:33 AM 147.0mg/dLBlood Sugar509:10 PM120.0mg/dLBlood Sugar504:29 PM 157.0mg/dLBlood Sugar511:24 AM278.0mg/dLBlood Sugar507:14 AM 184.0mg/dLBlood Sugar:45 PM116.0mg/dLBlood Sugar:43 PM 299.0mg/dLBlood Sugar:06 PM162.0mg/dLBlood Sugar:11 AM 136.0mg/dLBlood Sugar:30 PM189.0mg/dLBlood Sugar:04 PM 148.0mg/dLBlood Sugar:29 AM237.0mg/dLBlood Sugar:50 PM 175.0mg/dLBlood Sugar:59 AM134.0mg/dLBlood Sugar:50 AM 238.0mg/dLBlood Sugar:30 PM209.0mg/dLBlood Sugar:30 PM 209.0mg/dLBlood Sugar:22 PM273.0mg/dLTB test04/25/20255535Nttvqnyp9.0mm TB test04/15/20252031Pujikgbu9.0mmXRAY CHEST 2 VIEWXRAY CHEST 2 VIEW:04 PMXRAY CHEST 2 VIEW FINDINGS: Lungs: Pulmonary vasculature is increased. Prominent lung markings. Pleura: No pneumothorax. No pleural effusion. Heart and Mediastinum: The cardiomediastinal silhouette is enlarged in size and contour. CONCLUSION: Mild CHF versus nonspecific interstitial lung disease. Recommend followup if indicated. ELECTRONICALLY SIGNED BY TERRIE JONES M.D. 04/29/2025 1:15:06 PM EDT.XRAY CHEST 2 VIEWXRAY CHEST 2 VIEW:33 PM XRAY CHEST 2 VIEW FINDINGS: Midline trachea. The cardiomediastinal silhouette is normal in size. Atherosclerotic vascular calcification within the aortic arch. There is evidence of prior median sternotomy. The lungs reveal minimal nonspecific areas of sub-segmental atelectasis versus scarring. No focal opacity to suggest pneumonia. No pleural effusion. No pneumothorax. Degenerative changes of theregional skeleton with demineralization. Superficial soft tissues are unremarkable. No radiopaque un Goals Goal Date Resident will not exhibit signs of urina ry tract infection. 05/10/2025 The resident will be free from complicat ions r/t med 07/14/2025 Resident will return to appropriate, saf e placement once stable 07/14/2025 Resident will participate in leave of absence (MARILIA) with family/friends and follow facility MARILIA rules through next review. 07/14/2025 Resident will have no indica tions of psychosocial well- being problem by/ through review date 07/14/2025 Resident will maintain psych osocial well being in senior care setting AEB: resident will accept care daily, positive expressions, positive body language thru next review 07/14/2025 Resident will maintain psych osocial well being in senior care setting AEB: resident will accept care daily, positive expressions, positive body language thru next review 07/14/2025 Resident will see (printed m aterial, television, self-care items, faces, etc.)./Resident will not have unrecognized declines in visual impairment. 07/18/2025 Resident will have no adverse effects fr om therapy 07/18/2025 Maintain SPO2 >=90% 07/18/2025 Resident will not exhibit signs of respi ratory distress 07/18/2025 Resident will remain free from injury. 0 07/18/2025 Resident needs will be met w [facility] staff assistance as needed. Res will improve in dressing and transfers. 07/19/2025 Resident's code status decision will be honored daily through next review 07/19/2025 Resident will have BM at least every 3 d ays until next review 07/19/2025 The resident will have no co mplications related to diabetes through the review date 07/19/2025 Resident will not exhibit si gns of side effects of complications secondary to diuretic use. 07/19/2025 Resident will be free from a dverse reactions from use of blood-thinning medication through review date 07/19/2025 Resident will have proper nu trition and hydration/ will be free of pain or bleeding in the oral cavity through next review 07/19/2025 Resident will not have an in terruption in normal activities d/t pain through the next review 07/19/2025 Resident will not exhibit/daley ve signs/symptoms of hypoxia (cyanosis, tachypnea, dyspnea, confusion, restlessness, nasal flaring, elevated blood pressure, increased respirations, increased pulse). 07/19/2025 Resident's skin will remain intact. 12/2025 Resident will have adequate blood flow to extremity as evidenced by presence of peripheral pulses, sensation, motion, and warmth to extremity. Skin to extremity will remain intact. 07/19/2025 Resident will maintain docum ented continence episodes of bowel and bladder several times weekly thru next review 07/20/2025 The resident will be free fr om s/s of complications of cardiac problems through the review date. 07/20/2025 The resident will voice sati sfaction with his/her self-initiated leisure pursuits through the next review 07/21/2025 Resident will report decreas ed upper GI symptoms and maintain nutritional intake. 07/22/2025 Resident will not exhibit signs of fluid volume excess. 07/22/2025 Resident will not exhibit si gns of activity intolerance (fatigue, shortness of breath, pallor or cyanosis, vertigo, weakness, etc.). 07/27/2025 2. Will be free of s/s dehyd ration, fluid overload, electrolyte imbalance through next review 07/28/2025 1. Will be free of significa nt weight changes q month 5% +/- per nursing/grand rounds, weight reports 07/28/2025 Encounters Admission Date Discharge Date Description MRN Visit Count 04/15/2025 12:50 05/02/2025 09:35 LTPAC Admission [id number]
--- OUTSIDE RECORDS SUMMARY | 2025-05-21 10:32 | XMS_ITS | Continuity of Care Document ---
Author Organization [facility] Address [address] [id number] Insurance Providers Payer Plan Claims Address Claims Phone Policy Number Group Number Relation Employer Guarantor Name Guarantor Guarantor Address Guarantor Phone [id number] [id number] [place], [place] [address] [id number] [address] [place], [place] [address]Medicare Rehab-IP Part [id number] [place] [address] Problems Condition ICD9 code ICD10 code SNOMED code Start Date End Date S tatus Nonobstructive reflux-associated chronic pyelonephritis N11.5ActiveVesicoureteral-reflux with reflux nephropathy without hydroureter, ulmkrozcmR56.739495ActiveUrinary tract infection, site not lvgirynapM35.5ActiveType 2 diabetes mellitus with diabetic ptihojmkoattcpA58.4215ActiveAnemia, ycddnhqdnazE31.915Active Atherosclerotic heart disease of andreafski coronary artery without angina pectoris I25.10105ActiveOther forms of acute ischemic heart eeqldpaE94.89 5ActivePeripheral vascular disease, ebesicxdwavO47.915Active Gastro-esophageal reflux disease without mnsfemxgjrnC64.915Active Retroperitoneal wuzpumhpP51.2105ActiveHeart failure, sedofboqfxxG52.9 5ActiveGout, fkdnwvllwyyP32.915ActiveEssential (primary) tamgcxnsqlhaD2031/5ActiveChronic kidney disease, stage 3bN18.3210 ActiveAcute kidney failure, pexwzgkfkuyX03.9105ActiveMajor laceration of liver, subsequent dhfnbjoeoQ11.116D105ActivePresence of aortocoronary bypass tlrsiH47.1105ActivePresence of unspecified artificial hip joint Z96.032245ActivePresence of other vascular implants and pxhvseV93.828 10tiveMuscle weakness (generalized)M62.81105ActiveDiarrhea, qyoqdyhksmvX25.7105ActiveDifficulty in walking, not elsewhere classified R26.2105ActiveMorbid (severe) obesity due to excess yljzchtmA05.01 105Active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c kidney okxojoaY62.1105Active Hyperparathyroidism, xazytcwmwosO39.3105ActiveUnspecified osteoarthritis, unspecified siteM19.90105ActiveIschemic txlwgkaljhgrbfT73.510 ActiveKlebsiella pneumoniae [K. 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 Refere nce Range Blood chemistry[[id number]] Glucose [Mass/volume] in Serum or Plasma [2345-7] 05/02/2025 07:00 AM 120 mg/dL N Blood chemistry[[id number]]?Glucose [Mass/volume] in Serum or Plasma [2345-7]05/01/2025 12:59 PM124 mg/dLNBlood chemistry[[id number]]?Glucose [Mass/volume] in Serum or Plasma [2345-7]05/01/2025 09:04 AM266 mg/dLNBlood chemistry[[id number]]?Glucose [Mass/volume] in Serum or Plasma [2345-7] 05/01/2025 04:38 PM188 mg/dLNBlood chemistry[[id number]]?Glucose [Mass/volume] in Serum or Plasma [2345-7]05/01/2025 07:56 AM173 mg/dLNBlood chemistry[[id number]]?Glucose [Mass/volume] in Serum or Plasma [2345-7] 04/30/2025 01:04 PM162 mg/dLNBlood chemistry[[id number]]?Glucose [Mass/volume] in Serum or Plasma [2345-7]04/30/2025 09:24 AM258 mg/dLNBlood chemistry[[id number]]?Glucose [Mass/volume] in Serum or Plasma [2345-7] 04/30/2025 03:00 PM222 mg/dLNBlood chemistry[[id number]]?Glucose [Mass/volume] in Serum or Plasma [2345-7]04/30/2025 11:33 AM126 mg/dLNBlood chemistry[[id number]]?Glucose [Mass/volume] in Serum or Plasma [2345-7] 04/29/2025 01:59 PM261 mg/dLNBlood chemistry[[id number]]?Glucose [Mass/volume] in Serum or Plasma [2345-7]04/29/2025 08:10 AM237 mg/dLNXRAY CHEST 2 VIEW[[id number]]?n/a [54833369-4]04/29/2025 05:15 AMSee noteNXRAY CHEST 2 VIEWBlood chemistry[[id number]]?Glucose [Mass/volume] in Serum or Plasma [2345-7]04/29/2025 03:35 PM205 mg/dLNBlood chemistry[[id number]]?Glucose [Mass/volume] in Serum or Plasma [2345-7] 04/29/2025 10:03 AM139 mg/dLNBlood chemistry[[id number]]?Glucose [Mass/volume] in Serum or Plasma [2345-7]04/28/2025 01:02 PM244 mg/dLNBlood chemistry[[id number]]?Glucose [Mass/volume] in Serum or Plasma [2345-7] 04/28/2025 08:18 AM226 mg/dLNBlood chemistry[[id number]]?Glucose [Mass/volume] in Serum or Plasma [2345-7]04/28/2025 03:39 PM173 mg/dLN Tuberculosis reaction wheal[63118-0]?Tuberculosis reaction wheal [62183-3]04/25/2025 04:00 PM0 mmNEGBlood chemistry[[id number]]?Glucose [Mass/volume] in Serum or Plasma [2345-7]04/28/2025 09:54 AM142 mg/dLNBlood chemistry[[id number]]?Glucose [Mass/volume] in Serum or Plasma [2345-7] 04/27/2025 02:32 PM262 mg/dLNBlood chemistry[[id number]]?Glucose [Mass/volume] in Serum or Plasma [2345-7]04/27/2025 07:41 AM206 mg/dLNBlood chemistry[[id number]]?Glucose [Mass/volume] in Serum or Plasma [2345-7] 04/27/2025 04:22 PM140 mg/dLNBlood chemistry[[id number]]?Glucose [Mass/volume] in Serum or Plasma [2345-7]04/27/2025 08:12 AM145 mg/dLNBlood chemistry[[id number]]?Glucose [Mass/volume] in Serum or Plasma [2345-7] 04/26/2025 01:30 PM172 mg/dLNBlood chemistry[[id number]]?Glucose [Mass/volume] in Serum or Plasma [2345-7]04/26/2025 09:08 AM221 mg/dLNBlood chemistry[[id number]]?Glucose [Mass/volume] in Serum or Plasma [2345-7] 04/26/2025 04:09 PM250 mg/dLNBlood chemistry[[id number]]?Glucose [Mass/volume] in Serum or Plasma [2345-7]04/26/2025 09:30 AM155 mg/dLNBlood chemistry[[id number]]?Glucose [Mass/volume] in Serum or Plasma [2345-7] 04/25/2025 01:16 PM257 mg/dLNBlood chemistry[[id number]]?Glucose [Mass/volume] in Serum or Plasma [2345-7]04/25/2025 08:54 AM218 mg/dLNBlood chemistry[[id number]]?Glucose [Mass/volume] in Serum or Plasma [2345-7] 04/25/2025 04:13 PM194 mg/dLNTuberculosis reaction wheal[52284-9]? Tuberculosis reaction wheal [82779-1]04/25/2025 04:00 PMSee noteTB testBlood chemistry[[id number]]?Glucose [Mass/volume] in Serum or Plasma [2345-7] 04/25/2025 09:23 AM179 mg/dLNBlood chemistry[[id number]]?Glucose [Mass/volume] in Serum or Plasma [2345-7]04/24/2025 12:57 PM233 mg/dLNBlood chemistry[[id number]]?Glucose [Mass/volume] in Serum or Plasma [2345-7] 04/24/2025 07:54 AM230 mg/dLNBlood chemistry[[id number]]?Glucose [Mass/volume] in Serum or Plasma [2345-7]04/24/2025 03:36 PM171 mg/dLNBlood chemistry[[id number]]?Glucose [Mass/volume] in Serum or Plasma [2345-7] 04/24/2025 08:51 AM112 mg/dLNBlood chemistry[[id number]]?Glucose [Mass/volume] in Serum or Plasma [2345-7]04/23/2025 01:16 PM255 mg/dLNBlood chemistry[[id number]]?Glucose [Mass/volume] in Serum or Plasma [2345-7] 04/23/2025 07:42 AM371 mg/dLNBlood chemistry[[id number]]?Glucose [Mass/volume] in Serum or Plasma [2345-7]04/23/2025 03:31 PM224 mg/dLNBlood chemistry[[id number]]?Glucose [Mass/volume] in Serum or Plasma [2345-7] 04/23/2025 09:31 AM82 mg/dLNBlood chemistry[[id number]]?Glucose [Mass/volume] in Serum or Plasma [2345-7]04/22/2025 12:26 PM151 mg/dLNBlood chemistry[[id number]]?Glucose [Mass/volume] in Serum or Plasma [2345-7] 04/22/2025 08:53 AM236 mg/dLNBlood chemistry[[id number]]?Glucose [Mass/volume] in Serum or Plasma [2345-7]04/22/2025 03:59 PM146 mg/dLNBlood chemistry[[id number]]?Glucose [Mass/volume] in Serum or Plasma [2345-7] 04/22/2025 07:18 AM122 mg/dLNBlood chemistry[[id number]]?Glucose [Mass/volume] in Serum or Plasma [2345-7]04/21/2025 12:23 PM141 mg/dLNBlood chemistry[[id number]]?Glucose [Mass/volume] in Serum or Plasma [2345-7] 04/21/2025 08:34 AM206 mg/dLNBlood chemistry[[id number]]?Glucose [Mass/volume] in Serum or Plasma [2345-7]04/21/2025 04:09 PM262 mg/dLNBlood chemistry[[id number]]?Glucose [Mass/volume] in Serum or Plasma [2345-7] 04/21/2025 10:00 AM117 mg/dLNBlood chemistry[[id number]]?Glucose [Mass/volume] in Serum or Plasma [2345-7]04/20/2025 02:00 PM263 mg/dLNBlood chemistry[[id number]]?Glucose [Mass/volume] in Serum or Plasma [2345-7] 04/20/2025 08:41 AM209 mg/dLNBlood chemistry[[id number]]?Glucose [Mass/volume] in Serum or Plasma [2345-7]04/20/2025 03:11 PM276 mg/dLNBlood chemistry[[id number]]?Glucose [Mass/volume] in Serum or Plasma [2345-7] 04/20/2025 08:33 AM147 mg/dLNBlood chemistry[[id number]]?Glucose [Mass/volume] in Serum or Plasma [2345-7]04/19/2025 01:10 PM120 mg/dLNBlood chemistry[[id number]]?Glucose [Mass/volume] in Serum or Plasma [2345-7] 04/19/2025 08:29 AM157 mg/dLNBlood chemistry[[id number]]?Glucose [Mass/volume] in Serum or Plasma [2345-7]04/19/2025 03:24 PM278 mg/dLNBlood chemistry[[id number]]?Glucose [Mass/volume] in Serum or Plasma [2345-7] 04/19/2025 11:14 AM184 mg/dLNBlood chemistry[[id number]]?Glucose [Mass/volume] in Serum or Plasma [2345-7]04/18/2025 02:45 PM116 mg/dLNBlood chemistry[[id number]]?Glucose [Mass/volume] in Serum or Plasma [[facility]5-7] 04/18/2025 08:43 AM299 mg/dLNBlood chemistry[[id number]]?Glucose [Mass/volume] in Serum or Plasma [[facility]5-7]04/18/2025 04:06 PM162 mg/dLN Tuberculosis reaction wheal[57632-1]?Tuberculosis reaction wheal [54399-4]04/15/2025 04:00 PM0 mmNEGBlood chemistry[[id number]]?Glucose [Mass/volume] in Serum or Plasma [2345-7]04/18/2025 12:11 PM136 mg/dLNBlood chemistry[[id number]]?Glucose [Mass/volume] in Serum or Plasma [2345-7] 04/17/2025 12:30 PM189 mg/dLNBlood chemistry[[id number]]?Glucose [Mass/volume] in Serum or Plasma [2345-7]04/17/2025 09:04 AM148 mg/dLNBlood chemistry[[id number]]?Glucose [Mass/volume] in Serum or Plasma [2345-7] 04/17/2025 05:29 AM237 mg/dLNXRAY CHEST 2 VIEW[10630513-1]?n/a [15087796-1]04/16/2025 12:55 PMSee noteNXRAY CHEST 2 VIEWBlood chemistry[[id number]]?Glucose [Mass/volume] in Serum or Plasma [2345-7] 04/16/2025 08:50 AM175 mg/dLNBlood chemistry[[id number]]?Glucose [Mass/volume] in Serum or Plasma [2345-7]04/16/2025 02:59 PM134 mg/dLNBlood chemistry[[id number]]?Glucose [Mass/volume] in Serum or Plasma [2345-7] 04/16/2025 11:50 AM238 mg/dLNBlood chemistry[[id number]]?Glucose [Mass/volume] in Serum or Plasma [2345-7]04/15/2025 11:30 AM209 mg/dLN Tuberculosis reaction wheal[43572-5]?Tuberculosis reaction wheal [97560-7]04/15/2025 04:00 PMSee noteTB testBlood chemistry[[id number]]? Glucose [Mass/volume] in Serum or Plasma [2345-7]04/15/2025 08:22 AM273 mg/dLN Allergies, adverse reactions, alerts Substance Reaction Date Status Type No allergies have been recorded Non Drug Immunizations Vaccine Route Date Status COVID-19 Vaccine Unassigned Route of Administration Completed Influenza Vaccine Unassigned Route of Administration 1 Completed Medications Medication Instructions Route Dosage Frequency Start Date Stop Date Indications Status acetaminophen 500 mg tablet (acetaminophen) 2 tablets, oral, Every 8 Hours - PRN, 2 tablets to equal 1000mg oral 1.0 8.0 h 10/03/2 025 2024 Presence of unspecified artificial hip joint Active allopurinol 300 mg tablet (allopurinol) 1 tablet, oral, Once A Day oral 1.0 1.0 d 025 2024 Gout, unspecified Active aspirin 81 mg tablet,delayed release (DR/EC) (aspirin) 1 tablet, oral, Once A Day oral 1.0 1.0 d 025 2024 Presence of other vascular implants and grafts Active carvedilol 3.125 mg tablet (carvedilol) 1 tablet, oral, Twice A Day oral 1.0 12.0 h 2024 Essential (primary) hypertension Active cefuroxime axetil 250 mg tablet (cefuroxime axetil) 1 tablet, oral, Twice A Day oral 1.0 12.0 h 2024 Urinary tract infection, site not specified Active cholecalciferol (vitamin D3) 125 mcg (5,000 unit) capsule (cholecalciferol (vitamin D3)) 1 capsule, oral, Once A Day Every Other Day, Vit D deficiency oral 1.0 1.0 d 04/15/2025 05/03/2025 Activeclopidogrel 75 mg tablet (clopidogrel)1 tablet, oral, Once A Dayoral1.01.0 d1Presence of other vascular implants and graftsActive furosemide 40 mg tablet (furosemide)1 tablet, oral, Once A Dayoral1.01.0 d Heart failure, unspecifiedActiveGlucagon (HCl) Emergency Kit (glucagon hcl) 1 mg recon soln (Glucagon (HCl) Emergency Kit (glucagonhcl))1 mg, injection, As Needed, Every 15 minutes as needed1.01.0 d1 Type 2 diabetes mellitus with diabetic polyneuropathyActiveheparin (porcine) 5,000 unit/mL solution (heparin (porcine))1 ml, injection, Twice A Day1.012.0 h Peripheral vascular disease, unspecifiedActiveLantus Solostar U-100 Insulin (insulin glargine) 100 unit/mL (3 mL) insulin pen (Lantus Solostar U-100 Insulin (insulin glargine))25 units, subcutaneous, At Bedtime subcutaneous1.Type 2 diabetes mellitus with diabetic polyneuropathyActivepantoprazole 20 mg tablet,delayed release (DR/EC) (pantoprazole)1 tablet, oral, Once A Dayoral1.01.0 d1Gastro- esophageal reflux disease without esophagitisActiverosuvastatin 10 mg tablet (rosuvastatin)1 tablet, oral, At Bedtimeoral1 Atherosclerotic heart disease of andreafski coronary artery without angina pectoris ActiveInsta-Glucose (with dextrin) (aavbndbl-yyewxvn-ufvxskk) 24 gram/31 gram gel (Insta-Glucose (with dextrin) (cdorlkib-eyykjsc-tqmqnud))24gm/31gm, oral, As Needed, Every 15 minutesoral1.01.0 d1Type 2 diabetes mellitus with diabetic polyneuropathyActiveNovolog FlexPen U-100 Insulin (insulin aspart u-100) 100 unit/mL (3 mL) insulin pen (Novolog FlexPen U-100 Insulin (insulin aspart u-100))Per Sliding Scale, subcutaneous, Before Meals and At [...] Blood Sugar is greater than 400, call MD. subcutaneousType 2 diabetes mellitus with diabetic polyneuropathyActiveImodium A-D (loperamide) 2 mg tablet (Imodium A-D (loperamide))2 mg, oral, Every 6 Hours - PRNoral1.06.0 h1 Diarrhea, unspecifiedActiveipratropium-albuterol 0.5 mg-3 mg(2.5 mg base)/3 mL solution for nebulization (ipratropium-albuterol)3 mL, inhalation, Every 6 Hours inhalation1.06.0 h1051Other forms of acute ischemic heart diseaseActiveatorvastatin 20 mg tablet (atorvastatin)20mg, oral, At Bedtimeoral 1.010//935964/5Activeinsulin lispro 100 unit/mL solution (insulin lispro)Per Sliding Scale, subcutaneous, Before Meals and At [...] Blood Sugar is greater than 400, call MD.subcutaneous1.0 /Type 2 diabetes mellitus with diabetic polyneuropathyActive allopurinol 100 mg tablet (allopurinol)1 tab, oral, Once A Dayoral1.01.0 d /Gout, unspecifiedActiveGlucagon (HCl) Emergency Kit (glucagon hcl) 1 mg recon soln (Glucagon (HCl) Emergency Kit (glucagonhcl))1mg, injection, As Needed, FSBS< 601.01.0 d1/5Activeipratropium- albuterol 0.5 mg-3 mg(2.5 mg base)/3 mL solution for nebulization (ipratropium-albuterol)3 mL, inhalation, Every 6 Hours - PRNinhalation1.06.0 h /Other forms of acute ischemic heart diseaseActiveGlucagon Emergency Kit (human) (glucagon) 1 mg recon soln (Glucagon Emergency Kit (human) (glucagon))1 mg, injection, As Needed, FSBS< 601.01.0 d1/Type 2 diabetes mellitus with diabetic polyneuropathyActiveinsulin glargine-yfgn 100 unit/mL (3 mL) insulin pen (insulin glargine-yfgn)25 units, subcutaneous, At Bedtimesubcutaneous1./Type 2 diabetes mellitus with diabetic polyneuropathyActivegabapentin 300 mg capsule (gabapentin)300mg, oral, Twice A Dayoral1.012.0 h10/5ActiveFluzone High-Dose (PF) (flu vacc hr1662-50(65yr up)-pf) 180 mcg/0.5 mL syringe (Fluzone High-Dose (PF) (flu vacc yz8738-02(65yr up)-pf))0.5 ml, intramuscular, Once - One Time intramuscular1.5Activecefuroxime axetil 250 mg tablet (cefuroxime axetil)1 tablet, oral, Twice A Dayoral1.012.0 h1/ Klebsiella pneumoniae [K. pneumoniae] as the cause of diseases classified elsewhereActivegabapentin 100 mg capsule (gabapentin)1 capsule, oral, At Bedtime oral1./Peripheral vascular disease, unspecifiedActive cefuroxime axetil 250 mg tablet (cefuroxime axetil)1 tablet, oral, Twice A Day oral1.012.0 h1Urinary tract infection, site not specified ActiveFluzone High-Dose (PF) (flu vacc qo6942-68(65yr up)-pf) 180 mcg/0.5 mL syringe (Fluzone High-Dose (PF) (flu vacc cv7953-29(65yr up)-pf))0.5 ml, intramuscular, Once - One Timeintramuscular1. 05/02/2025tiveipratropium-albuterol 0.5 mg-3 mg(2.5 mg base)/3 mL solution for nebulization (ipratropium-albuterol)3 mL, inhalation, Every 6 Hoursinhalation1.0 6.0 h1/Other forms of acute ischemic heart diseaseActive Vital Signs Date Vital Result Comment 04/15/2025 01:29 PM Body Height (8302-2) 59 [in_us] 04/15/2025 01:28 PMTemperature (8310-5)98.1 [degF]Oxygen Saturation (78359-5)98 %Respiratory Rate (9279-1)16 /minHeart Rate (8867-4)68 /minBlood Pressure Systolic (8480-6)138 mm[Hg]Blood Pressure Diastolic (8462-4)62 mm[Hg]04/15/2025 01:32 PMTemperature (8310-5)98.1 [degF]Oxygen Saturation (75634-1)98 % Respiratory Rate (9279-1)16 /minHeart Rate (8867-4)68 /minBlood Pressure Systolic (8480-6)138 mm[Hg]Blood Pressure Diastolic (8462-4)62 mm[Hg]04/15/2025 02:09 PMBody Weight (93056-2)182 [lb_av]Body Mass Index (90760-3)36.76 kg/m2 04/15/2025 04:21 PMTemperature (8310-5)98 [degF]Oxygen Saturation (59766-1)98 % Respiratory Rate (9279-1)18 /minHeart Rate (8867-4)70 /minBlood Pressure Systolic (8480-6)130 mm[Hg]Blood Pressure Diastolic (8462-4)64 mm[Hg]04/16/2025 01:43 AMOxygen Saturation (60715-8)97 %04/16/2025 01:42 AMTemperature (8310-5) 97.9 [degF]Respiratory Rate (9279-1)20 /minHeart Rate (8867-4)68 /minBlood Pressure Systolic (8480-6)151 mm[Hg]Blood Pressure Diastolic (8462-4)69 mm[Hg] 04/16/2025 10:59 AMTemperature (8310-5)98.4 [degF]Oxygen Saturation (34462-3)94 %Respiratory Rate (9279-1)18 /minHeart Rate (8867-4)67 /minBlood Pressure Systolic (8480-6)164 mm[Hg]Blood Pressure Diastolic (8462-4)56 mm[Hg]04/16/2025 04:47 PMOxygen Saturation (82991-1)92 %Heart Rate (8867-4)76 /min04/17/2025 01:48 AMTemperature (8310-5)97 [degF]Respiratory Rate (9279-1)20 /minHeart Rate (8867-4)79 /minBlood Pressure Systolic (8480-6)165 mm[Hg]Blood Pressure Diastolic (8462-4)92 mm[Hg]04/17/2025 09:38 AMTemperature (8310-5)98.2 [degF] Oxygen Saturation (74526-0)99 %Respiratory Rate (9279-1)22 /minHeart Rate (8867-4)82 /minBlood Pressure Systolic (8480-6)151 mm[Hg]Blood Pressure Diastolic (8462-4)52 mm[Hg]04/17/2025 01:47 AMOxygen Saturation (86603-7)95 % Heart Rate (8867-4)79 /min04/18/2025 01:57 AMOxygen Saturation (36256-3)99 % Heart Rate (8867-4)78 /min04/18/2025 02:44 AMTemperature (8310-5)96.9 [degF] Oxygen Saturation (91130-3)99 %Respiratory Rate (9279-1)20 /minHeart Rate (8867-4)78 /minBlood Pressure Systolic (8480-6)185 mm[Hg]Blood Pressure Diastolic (8462-4)86 mm[Hg]04/18/2025 10:42 AMTemperature (8310-5)98.2 [degF] Oxygen Saturation (49980-8)99 %Respiratory Rate (9279-1)16 /minHeart Rate (8867-4)70 /minBlood Pressure Systolic (8480-6)130 mm[Hg]Blood Pressure Diastolic (8462-4)68 mm[Hg]04/18/2025 12:12 PMTemperature (8310-5)98.2 [degF] Oxygen Saturation (87188-3)99 %Respiratory Rate (9279-1)16 /minHeart Rate (8867-4)70 /minBlood Pressure Systolic (8480-6)130 mm[Hg]Blood Pressure Diastolic (8462-4)68 mm[Hg]04/18/2025 12:48 PMOxygen Saturation (08002-7)99 % Heart Rate (8867-4)70 /min04/18/2025 11:56 PMOxygen Saturation (66712-3)98 % Heart Rate (8867-4)66 /min04/18/2025 11:57 PMTemperature (8310-5)98 [degF]Oxygen Saturation (91093-2)98 %Respiratory Rate (9279-1)16 /minHeart Rate (8867-4)66 /minBlood Pressure Systolic (8480-6)111 mm[Hg]Blood Pressure Diastolic (8462-4) 66 mm[Hg]04/19/2025 11:23 AMTemperature (8310-5)98.2 [degF]Oxygen Saturation (54785-7)99 %Respiratory Rate (9279-1)16 /minHeart Rate (8867-4)78 /minBlood Pressure Systolic (8480-6)150 mm[Hg]Blood Pressure Diastolic (8462-4)65 mm[Hg] 04/19/2025 10:52 AMTemperature (8310-5)98.2 [degF]Oxygen Saturation (45707-6)99 %Respiratory Rate (9279-1)16 /minHeart Rate (8867-4)78 /minBlood Pressure Systolic (8480-6)150 mm[Hg]Blood Pressure Diastolic (8462-4)65 mm[Hg]04/19/2025 01:19 PMOxygen Saturation (94543-2)97 %Heart Rate (8867-4)76 /min04/19/2025 09:11 PMOxygen Saturation (77489-2)97 %Heart Rate (8867-4)74 /min04/20/2025 08:37 AMTemperature (8310-5)98.1 [degF]Oxygen Saturation (43119-0)99 % Respiratory Rate (9279-1)18 /minHeart Rate (8867-4)73 /minBlood Pressure Systolic (8480-6)138 mm[Hg]Blood Pressure Diastolic (8462-4)45 mm[Hg]04/20/2025 04:41 PMOxygen Saturation (47236-7)100 %Heart Rate (8867-4)71 /min04/21/2025 02:25 AMOxygen Saturation (18019-3)98 %Heart Rate (8867-4)74 /min04/21/2025 09:19 AMOxygen Saturation (07859-9)99 %Heart Rate (8867-4)71 /min04/21/2025 11:59 AMTemperature (8310-5)98.1 [degF]Oxygen Saturation (84183-1)99 % Respiratory Rate (9279-1)18 /minHeart Rate (8867-4)77 /minBlood Pressure Systolic (8480-6)163 mm[Hg]Blood Pressure Diastolic (8462-4)58 mm[Hg]04/22/2025 02:58 AMOxygen Saturation (38446-1)100 %Heart Rate (8867-4)78 /min04/22/2025 09:51 AMTemperature (8310-5)97.8 [degF]Oxygen Saturation (68648-2)96 % Respiratory Rate (9279-1)18 /minHeart Rate (8867-4)80 /minBlood Pressure Systolic (8480-6)141 mm[Hg]Blood Pressure Diastolic (8462-4)88 mm[Hg]04/22/2025 03:29 PMOxygen Saturation (92474-9)92 %Heart Rate (8867-4)76 /min04/23/2025 01:22 AMOxygen Saturation (06768-2)97 %Heart Rate (8867-4)68 /min04/23/2025 09:28 AMTemperature (8310-5)97.9 [degF]Oxygen Saturation (44682-9)98 % Respiratory Rate (9279-1)16 /minHeart Rate (8867-4)84 /minBlood Pressure Systolic (8480-6)150 mm[Hg]Blood Pressure Diastolic (8462-4)65 mm[Hg]04/23/2025 12:17 PMTemperature (8310-5)97.9 [degF]Oxygen Saturation (55537-6)98 % Respiratory Rate (9279-1)16 /minHeart Rate (8867-4)84 /minBlood Pressure Systolic (8480-6)150 mm[Hg]Blood Pressure Diastolic (8462-4)65 mm[Hg]04/23/2025 12:29 PMOxygen Saturation (20894-0)98 %Heart Rate (8867-4)84 /min04/23/2025 07:56 PMOxygen Saturation (39857-5)92 %Heart Rate (8867-4)78 /min04/24/2025 02:09 AMOxygen Saturation (34733-5)93 %Heart Rate (8867-4)76 /04/24/2025 10:51 AMTemperature (8310-5)98.1 [degF]Oxygen Saturation (20641-6)97 % Respiratory Rate (9279-1)16 /minHeart Rate (8867-4)80 /minBlood Pressure Systolic (8480-6)113 mm[Hg]Blood Pressure Diastolic (8462-4)83 mm[Hg]04/24/2025 11:35 AMTemperature (8310-5)98.1 [degF]Oxygen Saturation (21130-0)97 % Respiratory Rate (9279-1)16 /minHeart Rate (8867-4)80 /minBlood Pressure Systolic (8480-6)113 mm[Hg]Blood Pressure Diastolic (8462-4)83 mm[Hg]04/24/2025 12:08 PMOxygen Saturation (55421-5)97 %Heart Rate (8867-4)80 /min04/24/2025 11:19 PMOxygen Saturation (32852-5)93 %Heart Rate (8867-4)83 /min04/25/2025 08:33 AMOxygen Saturation (20906-5)96 %Heart Rate (8867-4)76 /04/25/2025 09:35 AMTemperature (8310-5)98.2 [degF]Oxygen Saturation (85874-2)98 % Respiratory Rate (9279-1)18 /minHeart Rate (8867-4)78 /minBlood Pressure Systolic (8480-6)138 mm[Hg]Blood Pressure Diastolic (8462-4)61 mm[Hg]04/26/2025 08:09 AMTemperature (8310-5)98.3 [degF]Oxygen Saturation (68655-6)99 % Respiratory Rate (9279-1)18 /minHeart Rate (8867-4)69 /minBlood Pressure Systolic (8480-6)140 mm[Hg]Blood Pressure Diastolic (8462-4)72 mm[Hg]04/26/2025 05:28 AMOxygen Saturation (78327-7)95 %Heart Rate (8867-4)64 /min04/26/2025 01:11 PMOxygen Saturation (35453-8)97 %04/26/2025 01:25 PMTemperature (8310-5) 97.9 [degF]04/26/2025 11:42 PMTemperature (8310-5)98.4 [degF]04/27/2025 01:17 AM Oxygen Saturation (04457-1)97 %Heart Rate (8867-4)77 /min04/27/2025 10:17 AM Temperature (8310-5)98.2 [degF]Oxygen Saturation (79221-4)97 %Respiratory Rate (9279-1)18 /minHeart Rate (8867-4)82 /minBlood Pressure Systolic (8480-6)139 mm[Hg]Blood Pressure Diastolic (8462-4)68 mm[Hg]04/27/2025 05:48 PMOxygen Saturation (95584-0)97 %Heart Rate (8867-4)78 /min04/27/2025 05:53 PMTemperature (8310-5)98 [degF]04/28/2025 05:54 AMTemperature (8310-5)97.2 [degF]04/28/2025 06:23 AMOxygen Saturation (83549-6)91 %Heart Rate (8867-4)74 /min04/28/2025 07:41 AMTemperature (8310-5)97.4 [degF]04/28/2025 10:02 AMTemperature (8310-5)98 [degF]Oxygen Saturation (74878-4)96 %Respiratory Rate (9279-1)16 /minHeart Rate (8867-4)73 /minBlood Pressure Systolic (8480-6)130 mm[Hg]Blood Pressure Diastolic (8462-4)63 mm[Hg]04/28/2025 11:39 AMTemperature (8310-5)98 [degF] Oxygen Saturation (71334-3)96 %Respiratory Rate (9279-1)16 /minHeart Rate (8867-4)73 /minBlood Pressure Systolic (8480-6)130 mm[Hg]Blood Pressure Diastolic (8462-4)63 mm[Hg]04/28/2025 01:55 PMOxygen Saturation (13288-8)96 % Heart Rate (8867-4)73 /min04/28/2025 04:18 PMTemperature (8310-5)98.2 [degF] 04/28/2025 06:02 PMOxygen Saturation (18976-2)97 %Heart Rate (8867-4)85 /min 04/29/2025 12:00 AMTemperature (8310-5)98 [degF]04/29/2025 06:07 AMOxygen Saturation (69832-0)97 %Heart Rate (8867-4)63 /min04/29/2025 11:22 AMTemperature (8310-5)98.2 [degF]Oxygen Saturation (69221-9)97 %Respiratory Rate (9279-1)16 /minHeart Rate (8867-4)75 /minBlood Pressure Systolic (8480-6)143 mm[Hg]Blood Pressure Diastolic (8462-4)70 mm[Hg]04/29/2025 11:21 AMTemperature (8310-5)98.2 [degF]04/29/2025 01:15 PMOxygen Saturation (78852-1)97 %Heart Rate (8867-4)75 /min04/29/2025 11:23 AMBody Weight (90223-9)173.2 [lb_av]Body Mass Index (64632-7)34.98 kg/m204/29/2025 11:59 PMOxygen Saturation (13117-2)93 %Heart Rate (8867-4)63 /min04/30/2025 09:04 AMOxygen Saturation (55633-7)94 %04/30/2025 09:03 AMTemperature (8310-5)98.1 [degF]Respiratory Rate (9279-1)18 /minBlood Pressure Systolic (8480-6)134 mm[Hg]Blood Pressure Diastolic (8462-4)70 mm[Hg] 04/30/2025 06:28 AMOxygen Saturation (37183-2)94 %Heart Rate (8867-4)66 /min 05/01/2025 07:58 AMOxygen Saturation (76125-9)94 %Heart Rate (8867-4)74 /min 05/01/2025 10:11 AMHeart Rate (8867-4)78 /min05/01/2025 12:35 PMTemperature (8310-5)97.8 [degF]Oxygen Saturation (26104-8)98 %Respiratory Rate (9279-1)18 /minHeart Rate (8867-4)72 /minBlood Pressure Systolic (8480-6)149 mm[Hg]Blood Pressure Diastolic (8462-4)70 mm[Hg]05/02/2025 09:14 AMTemperature (8310-5)97.9 [degF]Oxygen Saturation (62120-2)94 %Respiratory Rate (9279-1)18 /minHeart Rate (8867-4)77 /minBlood Pressure Systolic (8480-6)153 mm[Hg]Blood Pressure Diastolic (8462-4)72 mm[Hg]05/02/2025 12:29 PMOxygen Saturation (50845-7)94 % Heart Rate (8867-4)77 /min Social History No smoking Hx information available Encounters Type CPT Code Date Location Provider Indication s encounter report 04/15/2025 10:54 Robb Tyler MD01encounter ndamwr5704/15/2025 12:50 PMNestor Tyler MD01encounter dhhrlt9504/15/2025 12:50 PM - 05/02/2025 09:35 Alexys Cazares MD01 Advance Directives Directive Description Verification Date Supporting Document(s) Other Directive
--- OUTSIDE RECORDS SUMMARY | 2025-05-21 10:32 | XMS_ITS | Clinical Summary ---
Author Organization [facility] Address [address] [facility] [place] [address] Care Team Providers Care Clinical Project Leader Name Role Phone Unavailable Primary Care Provider Unavailabl e Source Comments The following information is NOT included in Care Everywhere downloads:Psychiatric notes, ECG results, Cardiac Rehab notes, Pulmonary Function notes, data from SmartForms (includes but not limited toPregnancy data,audiograms, eye exams, pre-surgical evaluation notes, well-child exam data).[facility] Social History Tobacco UseTypesPacks/DayYears UsedDateSmoking Tobacco: Never Assessed CommentsUnknownSex and Gender InformationValueDate RecordedSex Assigned at Not on fileLegal DhdDokcmv13/26/2025 2:36 PM EDTGender IdentityNot on fileSexual OrientationNot on file Plan of Treatment Health MaintenanceDue DateLast DoneCommentsHepatitis C Fpmslgqq78/22/1963Tdap Bgnxbyz2806/04/1963Hepatitis A (HAV) Vaccine (optional start 19+ years)1964 Tetanus (Td or Tdap) Nmlpqnk5906/04/1964Pneumococcal Vaccine(s) (50+ yrs) (1 of 1 - PCV)1995Shingles (RZV) Vaccine (1 of 2)1995Hepatitis B (HBV) Vaccine (optional start 60+ years)2005Bone Stwkkzporlsc13/22/2010RSV vaccine (adult) (1 - 1-dose 75+ series)2020COVID-19 Vaccine (1 - 2024- season)2025Influenza Vaccine (#1)2025Welcome to Medicare Visit (G0402)05/08/2025Pap SmearDiscontinued Insurance
--- OUTSIDE RECORDS SUMMARY | 2025-05-21 10:32 | XMS_ITS | Patient Health Record ---
Author Organization [facility] [place] Address [address] [place] [address] Care Team Providers Care Dehydrator Name Role Phone Olivia Cazares Primary Care Provider Maame Hastings Unavailable [phone] Annie Gasca Unavailable [phone] Allergies No Known Allergies Reason For Referral No Information Medications Medication SIG (Take, Route, Frequency, Duration) Notes Start Date End Date Status Colace ActiveClopidogrel Bisulfate 75 MG1 tablet Orally Once a dayActiveGabapentin 300 MG1 capsule Orally Twice a DayActiveFurosemide 40 MG1 tablet Orally Once a day ActiveAllopurinol 300 MG1 tablet Orally Once a dayActiveVitamin D3 125 MCG (5000 UT)1 capsule Orally Once a dayActiveCarvedilol 25 MG1 tablet with food Orally Twice a day11/27/2023ctiveAspirin 81 MG1 tablet Orally Once a dayActive oxyBUTYnin Chloride 5 MG1 tablet Orally Once a dayActiveRosuvastatin Calcium 5 MG1 tablet Orally Once a dayActivePotassium Chloride 10 MEQ/100MLas directed IntravenousActive Social History Tobacco Use: Social History Observation Description Date Details (start date - stop date) Former Smoker NA - NA Tobacco Control (Standard) Question Answer Notes Tobacco use: Former smoker Problems Problem Type SNOMED Code ICD Code Onset Dates Problem Status W/U Status Risk Notes Problem Peripheral vascular disease (354135690) Peripheral vascular disease, unspecified (I73.9) ActiveconfirmedProblemType 2 diabetes mellitus with other specified complication (E11.69)ActiveconfirmedProblemCoronary artery disease (81643200)CAD (coronary artery disease) (I25.10)ActiveconfirmedProblemHypertension (33393337)HTN (hypertension) (I10)ActiveconfirmedProblemGout (43637316)Gout (M10.9)Active confirmedProblemDiabetes mellitus type 2 (disorder) (03343718)DM2 (diabetes mellitus, type 2) (E11.9)Activeconfirmed Vital Signs Heart Rate 75 /min 08/02/2024 Xeodlhnmobv28.1 degrees Owmhusreba18/20/0119Ieldwbgm80 %08/02/20243861Qcftkf28 in 08/02/20246979Jlbdwq688 lbs08/02/2024BMI33.32 kg/m208/02/2024 Encounters Encounter Location Date Provider Diagnosis [facility] (PODIATRY) [address] [place] [address] [place] [address] 08/02/2024 Annie Gasca Type 2 diabetes mellitus with other specified complication E11.69 ; Pain in left toe(s) M79.675 and Peripheral vascular disease, unspecified I73.[address] [address] 05/12/2025 Maame Oseguera Assessments Encounter Date Diagnosis (ICD Code) Assessment Notes Treatment Notes Treatment Clinical Notes Section Notes 08/02/2024 Type 2 diabetes [place] itus with other specified complication (ICD-10 - E11.69) 08/02/2024Pain in left toe(s) (ICD-10 - M79.675)08/02/2024Peripheral vascular disease, unspecified (ICD-10 - I73.9) Plan Of Treatment No Information Insurance Providers Payer Name Payer Address Payer Phone Subscriber Number Group Number Insured Name Patient Relationship to Insured Coverage Start Date Coverage End Date [place]IC[place] [address] [id number] Neha Cm - patient is the insuredFORMERLY [facility] [address] [place] [id number] Neha Lowery - patient is the insured Medical (General) History Medical History History ICD Code arthritis diabetesheart diseaseperipheral vascular diseaseSurgical History Surgery Date(Month/Year) heart bypass
--- OUTSIDE RECORDS SUMMARY | 2025-05-21 10:33 | XMS_ITS | Encounter Summary ---
Author Organization [facility] Address [id number] [address] [place] [address] Care Team Providers Care Clinical Data Assistant Name Role Phone Olivia Cazares MD Primary Care Provider [phone] Encounter Details DateTypeDepartmentCare Team (Latest Contact Info)Newhwbfltom93/05/2025Telephone [facility] - Pharmacy Medication Management [address] [place] [phone] Mer Jean-Baptiste, [facility] [address] [place] [address] Social History Tobacco UseTypesPacks/DayYears UsedDateSmoking Tobacco: NeverSmokeless Tobacco: NeverAlcohol UseStandard Drinks/WeekCommentsNever0 (1 standard drink = 0.6 oz pure alcohol)PHQ-2AnswerDate RecordedTotal Qnnuw638UDIT-CAnswerDate RecordedQ1: How often do you have a drink containing alcohol?Never05/09/2025Q2: How many drinks containing alcohol do you have on a typical day when you are drinking?Patient does not drink05/09/2025Q3: How often do you have six or more drinks on one occasion?Never05/09/2025Overall Financial Resource Strain (CARDIA) AnswerDate RecordedHow hard is it for you to pay for the very basics like food, housing, medical care, and heating?Not hard at all05/09/2025PRAPARE - TransportationAnswerDate RecordedIn the past 12 months, has lack of transportation kept you from medical appointments or from getting medications?No 05/09/2025In the past 12 months, has lack of [...] stay in as a part of a household?No05/09/2025hildcareAnswerDate RecordedChildcareUnknown 12/21/2018EmploymentAnswerDate LbuatwqqLhyyddjxabDzpvyiz88/10/2019Hunger ScreeningAnswerDate RecordedWithin the past 12 months we worried whether our food would run out before we got money to buy more.Never True05/09/2025Within the past 12 months the food we bought just didn't last and we didn't have money to get more.Never True05/09/2025CommentsNoSex and Gender Information ValueDate RecordedSex Assigned at BirthNot on fileLegal MmsLmpuei85/26/2025 3:17 PM EDTGender IdentityNot on fileSexual OrientationNot on filedocumented as of this encounter Miscellaneous Notes * Telephone Encounter - Mer Jean-Baptiste RPH - 05/18/2025 11:44 AM EST Faxed referral form for heart failure management received along with med list and recent visit note, but referral is not signed. Documents refaxed to Dr. Olivia Cazares's office requesting signature onreferral form. Of note, patient is still admitted at [facility]. documented in this encounter Plan of Treatment DateTypeDepartmentCare Team (Latest Contact Info)Zforumflkqy00/ 12:00 PM ESTOffice Visit [facility] [address] [facility] [address] [place] [phone] Elli Ortiz APRN-SLITTER AND CUTTER OPERATOR [address] [facility] [address] [place] [address] documented as of this encounter Goals GoalPatient Goal TypeAssociated ProblemsRecent ProgressPatient-Stated?Author Home with spouse and home care services Eden Schilling Note: Evaluation of progress towards goal: Home with spouse and [facility] services documented as of this encounter Visit Diagnoses Not on filedocumented in this encounter Additional Health Concerns AssessmentNoted TimePHQ-9 Depression Total Score: 4:55 PM EDT documented as of this encounter Care Teams Team MemberRelationshipSpecialtyStart DateEnd Date Olivia Cazares MD [facility] [place] [address] PCP - GeneralFamily Frjzilyl98/27/25documented as of this encounter
--- OUTSIDE RECORDS SUMMARY | 2025-05-21 10:33 | XMS_ITS | Patient Health Record ---
Author Organization [facility] Address [address] [place] [address] [place] [address] Care Team Providers Care Global Manager Name Role Phone Olivia Cazares MD Primary Care Provider Unavailab Silvio Castillo Unavailable [phone] Reason For Referral No Information Plan Of Treatment No Information Insurance Providers Payer Name Payer Address Payer Phone Subscriber Number Group Number Insured Name Patient Relationship to Insured Coverage Start Date Coverage End Date Medicare Part B J-15 Part [facility] Claims [address] [place] [address] [id number] Cm - [facility] Options [address] [place] [id number], SandraSelf - patient is the insured
--- OUTSIDE RECORDS SUMMARY | 2025-05-21 10:34 | XMS_ITS | Encounter Summary ---
[facility] Address [id number] [address] [place] [address] Care Team Providers Care Sole Splitter Name Role Phone Olivia Cazares MD Primary Care Provider [phone] Encounter Details DateTypeDepartmentCare Team (Latest Contact Info)Awnpbxilnnq46/31/2025Orders Only [facility] - Pharmacy Medication Management [address] [place] [phone] Medication Management, [facility] [address] [place] [address] Social History Tobacco UseTypesPacks/DayYears UsedDateSmoking Tobacco: NeverSmokeless Tobacco: NeverAlcohol UseStandard Drinks/WeekCommentsNever0 (1 standard drink = 0.6 oz pure alcohol)PHQ-2AnswerDate RecordedTotal Uvprm343UDIT-CAnswerDate RecordedQ1: How often do you have a [...] a part of a household?No05/09/2025hildcareAnswerDate RecordedChildcareUnknown 12/21/2018EmploymentAnswerDate VysgcrchWgbuacfkgeXfvkrwu58/10/2019Hunger ScreeningAnswerDate RecordedWithin the past 12 months we worried whether our food would run out before we got money to buy more.Never True05/09/2025Within the past 12 months the food we bought just didn't last and we didn't have money to get more.Never True05/09/2025CommentsNoSex and Gender Information ValueDate RecordedSex Assigned at BirthNot on fileLegal YurSeabgk63/26/2025 3:17 PM EDTGender IdentityNot on fileSexual OrientationNot on filedocumented as of this encounter Progress Notes * Sanna Mays - 05/13/2025 1:24 PM EDT Identified by inpatient [facility] for MTM. documented in this encounter Plan of Treatment DateTypeDepartmentCare Team (Latest Contact Info)Yxasvbifyzc20/25/2025 12:00 PM ESTOffice Visit [facility] [address] [facility] [address] [facility] [place] [address] Elli Ortiz, HOME CARE GIVER-OUTBOUND SALES PROFESSIONAL [address] [facility] [place] [address] documented as of this encounter Goals GoalPatient Goal TypeAssociated ProblemsRecent ProgressPatient-Stated?Author Home with spouse and home care services Eden Schilling Note: Evaluation of progress towards goal: Home with spouse and [facility] services documented as of this encounter Visit Diagnoses Not on filedocumented in this encounter Additional Health Concerns AssessmentNoted TimePHQ-9 Depression Total Score: 4:55 PM EDT documented as of this encounter Care Teams Team MemberRelationshipSpecialtyStart DateEnd Date Olivia Cazares MD [address] [place] [address] PCP - GeneralFamily Yblbyzsr38/27/25documented as of this encounter
--- OUTSIDE RECORDS SUMMARY | 2025-05-21 10:35 | XMS_ITS | Encounter Summary ---
Author Organization [employer] [facility] Address [facility]-[id number] [address] [place] [address] Care Team Providers Care Warhead Maintenance Specialist Name Role Phone Olivia Cazares MD Primary Care Provider [phone] Encounter Details DateTypeDepartmentCare Team (Latest Contact Info)Wcxttnuyvsi87/27/2025Orders Only [facility] [employer] [address] [place] [phone] Transcribe, Orders Support User Pain (Primary Dx) Social History Tobacco UseTypesPacks/DayYears UsedDateSmoking Tobacco: NeverSmokeless Tobacco: NeverAlcohol UseStandard Drinks/WeekCommentsNever0 (1 standard drink = 0.6 oz pure alcohol)PHQ-2AnswerDate RecordedTotal Lvdbm153UDIT-CAnswerDate RecordedQ1: How often do you have a [...] a part of a household?No05/09/2025hildcareAnswerDate RecordedChildcareUnknown 12/21/2018EmploymentAnswerDate UmmmflygSwsqubcihwYvlzmyw14/10/2019Hunger ScreeningAnswerDate RecordedWithin the past 12 months we worried whether our food would run out before we got money to buy more.Never True05/09/2025Within the past 12 months the food we bought just didn't last and we didn't have money to get more.Never True05/09/2025CommentsNoSex and Gender Information ValueDate RecordedSex Assigned at BirthNot on fileLegal AphGqupvr87/26/2025 3:17 PM EDTGender IdentityNot on fileSexual OrientationNot on filedocumented as of this encounter Functional Status * AUDIT-C ScoreAnswerDate of YkgvbnmwxoXyjzeb515/27/2025 4:55 PM Sugar Erickson RN * QuestionAnswerDate of AssessmentAuthorQ1: How often do you have a drink containing alcohol?Never05/09/2025 4:55 PM Sugar Erickson RNQ2: How many drinks containing alcohol do you have on a typical day when you are drinking? Patient does not drink05/09/2025 4:55 PM Sugar Erickson RNQ3: How often do you have six or more drinks on one occasion?Never05/09/2025 4:55 PM EDT Sugar Johnson RN * QuestionAnswerDate of AssessmentAuthorFunctional StatusModerate assistance 05/09/2025 4:56 PM Sugar Erickson RN documented as of this encounter Mental Status * QuestionAnswerEntry DateAuthorOverall Cognitive DclxkiZKZ11/28/2025 1:35 PM Alejandra Ferguson, OT/L documented in this encounter Plan of Treatment DateTypeDepartmentCare Team (Latest Contact Info)Klxgdhigjhb37/25/2025 12:00 PM ESTOffice Visit [facility] [address] [facility] [address] [place] [phone] Elli Ortiz, YOUTH AGENT-DEPARTMENT STORE GENERAL MANAGER [address] [facility] [place] [address] documented as of this encounter Goals GoalPatient Goal TypeAssociated ProblemsRecent ProgressPatient-Stated?Author Home with spouse and home care services Eden Schilling Note: Evaluation of progress towards goal: Home with spouse and [facility] services documented as of this encounter Results * X-ray chest 1 view (05/08/2025 4:00 PM EDT)Specimen (Source)Anatomical Location / LateralityCollection Method / VolumeCollection TimeReceived Time Narrative Authorizing ProviderResult TypeResult StatusScanning Provider ExternalIMG DIAGNOSTIC IMAGING ORDERABLESFinal Result * CT abdomen and pelvis without contrast (05/08/2025 11:45 AM EDT)Specimen (Source)Anatomical Location / LateralityCollection Method / VolumeCollection TimeReceived Time Narrative Authorizing ProviderResult TypeResult StatusScanning Provider ExternalIMG CT ORDERABLESFinal Result * CT abdomen and pelvis without contrast (05/02/2025 2:45 PM EDT)Specimen (Source)Anatomical Location / LateralityCollection Method / VolumeCollection TimeReceived Time Narrative Authorizing ProviderResult TypeResult StatusScanning Provider ExternalIMG CT ORDERABLESFinal Result * CT brain without contrast (05/02/2025 1:05 PM EDT)Specimen (Source)Anatomical Location / LateralityCollection Method / VolumeCollection TimeReceived Time Narrative Authorizing ProviderResult TypeResult StatusScanning Provider ExternalIMG CT ORDERABLESFinal Result * CT chest without contrast (05/02/2025 1:00 PM EDT)Specimen (Source)Anatomical Location / LateralityCollection Method / VolumeCollection TimeReceived Time Narrative Authorizing ProviderResult TypeResult StatusScanning Provider ExternalIMG CT ORDERABLESFinal Result * X-ray chest 1 view (05/02/2025 10:20 AM EDT)Specimen (Source)Anatomical Location / LateralityCollection Method / VolumeCollection TimeReceived Time Narrative Authorizing ProviderResult TypeResult StatusScanning Provider ExternalIMG DIAGNOSTIC IMAGING ORDERABLESFinal Result documented in this encounter Visit Diagnoses Diagnosis Pain- Primary Generalized pain documented in this encounter Additional Health Concerns AssessmentNoted TimePHQ-9 Depression Total Score: 4:55 PM EDT documented as of this encounter Care Teams Team MemberRelationshipSpecialtyStart DateEnd Date Olivia Cazares MD [address] [place] [address] PCP - GeneralFamily Fgehgifo46/27/25documented as of this encounter
--- OUTSIDE RECORDS SUMMARY | 2025-05-21 10:35 | XMS_ITS | Clinical Summary ---
Author Organization [place] tem Address [id number] [address] [place] [address] Care Team Providers Care Jira Administrator Name Role Phone Olivia Cazares MD Primary Care Provider Allergies No known active allergies Medications MedicationSigDispense QuantityRefillsLast FilledStart DateEnd DateStatus allopurinoL (ZYLOPRIM) 100 mg tablet Take 3 tablets (300 mg total) by mouth in the morning.Active cholecalciferol, vitamin D3, 5,000 units tablet Take 1 tablet (5,000 Units total) by mouth in the morning.Active ertapenem 500 mg in sodium chloride 0.9 % 50 mL IVPB Infuse 500 mg into a venous catheter daily for 10 days. Active micafungin 100 mg in sodium chloride 0.9 % 100 mL IVPB W/ADAPTER Infuse 100 mg into a venous catheter daily for 10 days. Active clopidogreL (PLAVIX) 75 mg tablet Take 1 tablet (75 mg total) by mouth in the morning.Active potassium chloride (K-TAB,KLOR-CON) 10 MEQ CR tablet Take 1 tablet (10 mEq total) by mouth in the morning.Active ascorbic acid (VITAMIN C) 500 mg tablet Take 1 tablet (500 mg total) by mouth in the morning.Active aspirin 81 mg Take 1 tablet (81 mg total) by mouth before bedtime.Active rosuvastatin (CRESTOR) 10 mg tablet Take 1 tablet (10 mg total) by mouth before bedtime.Active acetaminophen (TYLENOL ARTHRITIS) 650 mg 8 hr tablet Take 1 tablet (650 mg total) by mouth every 8 (eight) hours as needed for pain. Active carvediloL (COREG) 3.125 mg tablet Take 1 tablet (3.125 mg total) by mouth in the morning and 1 tablet (3.125 mg total) before bedtime.5Active insulin glargine (LANTUS, SEMGLEE) 100 unit/mL (3 mL) insulin pen Inject 20 Units under the skin nightly.05/18/2025tive gabapentin (NEURONTIN) 300 mg capsule Indications:Chronic hypercapniaTake 1 capsule (300 mg total) by mouth nightly. 7 capsule 05/18/2025tive sennosides-docusate sodium (SENOKOT-S) 8.6-50 mg Take 2 tablets by mouth in the morning and 2 tablets before bedtime.05/18/2025 Active docusate sodium (COLACE) 50 mg capsule Take 1 capsule (50 mg total) by mouth nightly.Active sodium chloride 0.9 % injection Infuse 10 mL into a venous catheter as needed for line care for up to 10 days. Flush line with 10 mL normal saline before line use, and after line use. May also flush line as needed.5Active DAPTOmycin 375 mg in sodium chloride 0.9 % 50 mL IVPB Infuse 375 mg into a venous catheter every other day for 8 days.05/19/2025 5Active bumetanide (BUMEX) 2 mg tablet Take 1 tablet (2 mg total) by mouth every other day.5Active polyethylene glycol (GLYCOLAX) 17 gram packet Take 17 g by mouth in the morning and 17 g before bedtime.5Active gabapentin (NEURONTIN) 300 mg capsule Take 1 capsule (300 mg total) by mouth in the morning and 1 capsule (300 mg total) before bedtime.05/20/2025Discontinued(Stop Taking at Discharge) aspirin 81 mg chewable tablet Chew 1 tablet (81 mg total) and swallow in the morning.05/10/2025Discontinued clopidogreL (PLAVIX) 75 mg tablet Take 1 tablet (75 mg total) by mouth in the morning.05/10/2025Discontinued furosemide (LASIX) 40 mg tablet Take 1 tablet (40 mg total) by mouth daily. Every chrmpvc2905/20/2025Discontinued (Stop Taking at Discharge) pantoprazole (PROTONIX) 20 mg EC tablet Take 1 tablet (20 mg total) by mouth in the morning.05/18/2025Discontinued (Therapy completed) carvediloL (COREG) 25 mg tablet Take 1 tablet (25 mg total) by mouth in the morning and 1 tablet (25 mg total) in the evening. Takewith meals.05/20/2025Discontinued(Stop Taking at Discharge) insulin aspart U-100 (NovoLOG) 100 unit/mL injection Inject 0.03-0.05 mL (3-5 Units total) under the skin 4 (four) times daily after meals and at bedtime.05/18/2025Discontinued(Therapy completed) insulin glargine (LANTUS) 100 unit/mL injection Inject 0.25 mL (25 Units total) under the skin nightly.05/18/2025Discontinued (Therapy completed) DAPTOmycin 321.5 mg in sodium chloride 0.9 % 50 mL IVPB Infuse 321.5 mg into a venous catheter every other day for 9 days.05/18/2025 05/19/2025Discontinued sodium chloride 0.9 % injection Infuse 10 mL into a venous catheter as needed for line care for up to 10 days. Flush line with 10 mL normal saline before line use, and after line use. May also flush line as needed. Infuse heparin lock 1-5ml (10-50units total) into line after flush and line use.Discontinued bumetanide (BUMEX) 2 mg tablet Take 1 tablet (2 mg total) by mouth 2 (two) times a day. Discontinued(Stop Taking at Discharge) polyethylene glycol (GLYCOLAX) 17 gram packet Take 17 g by mouth in the morning and 17 g before bedtime. Discontinued(Stop Taking at Discharge) Active Problems ProblemNoted DateDiagnosed DateRespiratory vuilinq53/26/2025Acute exacerbation of CHF (congestive heart failure)05/08/2025 Encounters DateTypeDepartmentCare AqkeItshdeoajfa22/07/2025Telephone [facility] Pulmonary/Sleep Medicine [address] [facility] [address] [place] [phone] Rohini Manley, PULMONARY NURSE PRACTITIONER-INDIVIDUAL PENSION ADVISER 05/20/2025Telephone [facility] Infectious Disease [address] [facility] [address] [place] [address] Asya Silver MA 05/18/2025Telephone [facility] Medication Management [address] [place] [phone] Mer Jean-Baptiste [facility] 05/13/2025Orders Only [facility] - Pharmacy Medication Management [address] [place] [phone] Medication Management, [facility] 05/09/20257177Lctfht14/27/2025Orders Only [facility] [address] [place] [phone] Transcribe, Orders Support User Pain (Primary Dx)05/08/2025 8:24 PM EDT - 05/20/2025 11:00 AM ESTHospital Encounter [facility] - GEN [address] Progressive [address] [place] [phone] Sunshine Parikh MD Noumi, Andre, MD Dega, Amulya R, MD Dimmerling, Taylor J, MD Chronic hypercapnia (Primary Dx); Obesity hypoventilation syndrome ([facility]); Urinary tract infection without hematuria, site unspecified Discharge Disposition: [facility]-Medicare Cert05/08/2025 4:00 PM EDTAncillary Procedure [facility] [address] [place] [phone] Pain05/08/2025 11:45 AM EDTAncillary Procedure [facility] [address] [place] [phone] Pain05/02/2025 2:45 PM EDTAncillary Procedure [facility] [address] [place] [address] Pain05/02/2025 1:05 PM EDTAncillary Procedure [facility] [address] [place] [phone] Pain05/02/2025 1:00 PM EDTAncillary Procedure [facility] [address] [place] [phone] Pain05/02/2025 10:20 AM EDTAncillary Procedure [facility] [address] [place] [phone] Painfrom Last 3 Months Immunizations ImmunizationAdministration DatesNext DueInfluenza (IM) Preservative Free 04/30/2011Pneumococcal Kwournvrjtnajz53/05/2012(Deferred: Other - Never)Td (adult), 5 Lf tetanus toxoid, preservative free, tpyyysxy29/05/2012,12/17/2011, 12/17/2011,12/17/2011,12/17/2011,12/17/2011,12/17/2011,12/17/2011,12/17/2011, 12/17/20116895Pmhiwhu83/05/2012Zoster Live12/17/2011(Deferred: Other - Never) Social History Tobacco UseTypesPacks/DayYears UsedDateSmoking Tobacco: NeverSmokeless Tobacco: Never Tobacco Cessation:Counseling Given: Not Answered Alcohol UseStandard Drinks/WeekCommentsNever0 (1 standard drink = 0.6 oz pure alcohol)PHQ-2AnswerDate RecordedTotal Ariak117UDIT-CAnswerDate Recorded Q1: How often do you have [...] RecordedIn the past 12 months has the [place], gas, oil, or water indoo.rs threatened to shut off services in your home?No05/09/2025Housing InstabilityAnswerDate RecordedAre you worried or concerned that in the next two months you may not have stable housing that you own, rent or stay in as a part of a household?No 05/09/2025hildcareAnswerDate IwntcmrtUgyhrgohsTprrwmm61/10/2019EmploymentAnswer Date LncnilisUnwpcwdtyaBwftsed90/10/2019Hunger ScreeningAnswerDate Recorded Within the past 12 months we worried whether our food would run out before we got money to buy more.Never True05/09/2025Within the past 12 months the food we bought just didn't last and we didn't have money to get more.Never True 05/09/2025CommentsNoSex and Gender InformationValueDate RecordedSex Assigned at BirthNot on fileLegal CugBacuwu58/26/2025 3:17 PM EDTGender Identity Not on fileSexual OrientationNot on file Last Filed Vital Signs Vital SignReadingTime TakenCommentsBlood Seflpqvd510/9011 9:00 AM EST Jfsrq254605/20/2025 9:00 AM INUMulbongjgap88.3 ??C (97.4 ??F)05/20/2025 8:00 AM ESTRespiratory Ijgx845507/20/2024 9:00 AM ESTOxygen Wvyoamyyrg848%05/20/2025 9:00 AM ESTInhaled Oxygen Concentration--Yxvxhx71.3 kg (148 lb 5.9 oz)05/20/2025 5:00 AM EDRXnwwlp099.9 cm (4' 11 )05/09/2025 5:00 PM EDTBody Mass Index29.97 05/09/2025 5:00 PM EDT Plan of Treatment DateTypeDepartmentCare Team (Latest Contact Info)Mkqukhhiyjk51/25/2025 12:00 PM ESTOffice Visit [facility] [address] [facility] [address] [place] [phone] Elli Ortiz, PULMONARY NURSE PRACTITIONER-INDIVIDUAL PENSION ADVISER [address] [facility] [place] [facility] [place] [address] Health MaintenanceDue DateLast DoneCommentsZoster (Shingles) Vaccine (1 of 2) 1995Fall Risk Qpsfcuifc86/22/2010DTaP,Tdap and Td Vaccines (1 - Tdap) , 12/17/2011, 12/17/2011, Additional history existsRSV ( or age 60+ yrs) (1 - 1-dose 75+ series)2020COVID-19 Vaccine ( season)/11/2021, 04/13/2021, 08/30/2020, Additional history existsInfluenza Jsmvlwu55/, 07/01/2019, 07/14/2018, Additional history existsDepression Yrtqakhya52Tobacco Screening Goals GoalPatient Goal TypeAssociated ProblemsRecent ProgressPatient-Stated?Author Home with spouse and home care services Eden Schilling Note: Evaluation of progress towards goal: Home with spouse and [facility] services Medical Devices Not on file Procedures Procedure NamePriorityDate/TimeAssociated DiagnosisCommentsBEDSIDE GLUCOSE Iqgctdn9205/20/2025 8:47 AM EST XLGGZOKBMPIikylju38/07/2025 5:44 AM EST WSFXIXRSULdmmked47/07/2025 5:44 AM EST BASIC METABOLIC EDETDZclkpob98/07/2025 5:44 AM EST CBC WITH AUTO AKFZBYRXYNYPUnsntpk90/07/2025 5:44 AM EST BEDSIDE DKCLPBKJxwfvfk95/06/2025 9:04 PM EST BEDSIDE HGKWJZZXrlcnjl96/06/2025 4:07 PM EST XR ABDOMEN AP 1 EDAfnnwaa40/06/2025 3:28 PM EST BEDSIDE CQAEHQAHdolxzo44/06/2025 12:21 PM EST BEDSIDE CPXFVJKLcijshw18/06/2025 8:47 AM EST CK TOTALAdd-On05/19/2025 6:12 AM EST SLYOJDZKSFMkupspm89/06/2025 6:12 AM EST QXSSTHYMYSoxcigt95/06/2025 6:12 AM EST BASIC METABOLIC LEFCGJtgqkzt36/06/2025 6:12 AM EST CBC WITH AUTO UUZKNWNOCWRDWygqwwe09/06/2025 6:12 AM EST DMDNUNMBASQPqqbljv51/06/2025 4:00 AM ESTBLOOD GAS, KSXHNEOQFklltss90/06/2025 12:12 AM EST CUOHBLCEMXOMbbhovw81/06/2025 12:00 AM ESTBEDSIDE ZAPAHBSBysynkd70/05/2025 9:44 PM EST KRRDTEADPIDBndwiwc79/05/2025 8:00 PM ESTBEDSIDE LUFZPYDTslbkyd49/05/2025 4:26 PM EST XR CHEST 1 IPWyaqluw16/05/2025 4:16 PM EST RPSVHNTWPWjibxjc24/05/2025 1:36 PM EST BEDSIDE IMEUTPQXikrnse22/05/2025 12:48 PM EST OSRKOEHDTXKEoanyrz21/05/2025 12:00 PM ESTBEDSIDE UPSUNADNyzoeew79/05/2025 9:09 AM EST BEDSIDE EJMGWEFScnbdjc62/05/2025 8:27 AM EST DLBPURCFVJKysqmpo39/05/2025 5:37 AM EST OVZKPKWGBTncrmgm06/05/2025 5:37 AM EST BASIC METABOLIC DZPKVThkziqd96/05/2025 5:37 AM EST CBC WITH AUTO DMDDKNPHNCNSVqavavy01/05/2025 5:37 AM EST WCFXQWOXLMFYfjmmro60/05/2025 4:00 AM CMGFCCQPTCVLIPFjwfaut67/05/2025 12:00 AM ESTBEDSIDE WPJREIQMjfvkfa40/04/2025 8:35 PM EST GVCLYXXDDGGLebhxty98/04/2025 8:00 PM ESTBEDSIDE PLCIUNEUtjtmer57/04/2025 5:02 PM EST KPGXFHQTRWavtkqs36/04/2025 1:42 PM EST BEDSIDE ORUULOZWkhcqhn35/04/2025 11:52 AM EST BEDSIDE AUDIDOFFcveqpr81/04/2025 7:50 AM EST CK DNDZRRjvielk42/04/2025 5:39 AM EST QMKAGICHGJVdrjral31/04/2025 5:39 AM EST SZPSYMWJBIfomadk35/04/2025 5:39 AM EST BASIC METABOLIC XUMQUQfutwkn52/04/2025 5:39 AM EST CBC WITH AUTO NMZSYYQMVZTBUlsptku83/04/2025 5:39 AM EST SRUYMCODMTPJacuxvs84/04/2025 4:00 AM GPQPNJQONNTMGOXdtyeby94/04/2025 12:00 AM ESTBEDSIDE KENOWYOVzqvvgl38/03/2025 10:00 PM EST BEDSIDE WPQNWGWWmemdzd25/03/2025 4:14 PM EST IR PERC NEPH TUBE LT + NGRAM + S&TUmrbrzk13/03/2025 3:30 PM EST BEDSIDE YEQSTMXFdmglnj34/03/2025 11:07 AM EST BEDSIDE MARCKEUUvzvykm45/03/2025 7:20 AM EST JUXXTMVQLTAincnwe03/03/2025 6:37 AM EST FQABRLYBLVldmemh08/03/2025 6:37 AM EST BASIC METABOLIC XJGHHXnjohwd57/03/2025 6:37 AM EST CBC WITH AUTO DNUSOSSZXAITVlsrkhd10/03/2025 6:37 AM EST OZEXRHRMZHVPvhhdba55/03/2025 4:00 AM ZELLUYEVZSYFELKvbyjyx98/03/2025 12:00 AM ESTBEDSIDE ZNKQDDOIajeyxk35/02/2025 9:30 PM EST UOXIHRSPEDWOzwnmxz77/02/2025 8:00 PM ESTBEDSIDE RIUUXIYRiomwqt98/02/2025 4:14 PM EST BEDSIDE DCWSSXDPfxfyvq15/02/2025 12:24 PM EST BLOOD GAS, CPKGXKRqdutpi65/02/2025 11:50 AM EST PROTIME & TUTJYBJ2905/15/2025 11:47 AM EST PXAEIGLQHZrqmjmz11/02/2025 11:47 AM EST XR CHEST 1 MCXhdohin20/02/2025 9:35 AM EST BEDSIDE JVLZYALPiledak36/02/2025 8:09 AM EST DGTQJJHWXUZmgpizz53/02/2025 4:51 AM EST MTWGVIYKZFjdsonh72/02/2025 4:51 AM EST CBC WITH AUTO SPBVQHPNFESBCcrochv04/02/2025 4:51 AM EST BASIC METABOLIC FECQIGolsdlx47/02/2025 4:51 AM EST LIVER LQNIUAkzvmfk83/02/2025 4:51 AM EST IKKRVTIZMAZZrodczp94/02/2025 4:00 AM QYTWVAHCQFALSUSntkzhd02/02/2025 12:00 AM EDTBEDSIDE AFVXYIETogddth12/01/2025 9:27 PM EDT PLFEWVIUYIIDplvpvu85/01/2025 8:00 PM EDTBEDSIDE LWXTHLTSnodkfk94/01/2025 4:45 PM EDT TVCYAWHJYAYEsgxewf35/01/2025 4:00 PM NPIXILWZGVDXOPCugzzbn31/01/2025 12:00 PM EDTBEDSIDE WLLWQNHKnqkiiq47/01/2025 12:00 PM EDT BLOOD YZTSSYOLYEX13/01/2025 9:52 AM EDT BLOOD YUMNCRLFXGV94/01/2025 9:52 AM EDT EWWBXTDKLIMWqzkljk12/01/2025 8:00 AM EDTBEDSIDE KRGCSYJDqriseh41/01/2025 7:51 AM EDT CK MDTKLAwllsgl69/01/2025 5:19 AM EDT B-TYPE NATRIURETIC PEPTIDEAdd-On05/14/2025 5:19 AM EDT IONIZED ZFOGIFLRyhjngl86/01/2025 5:19 AM EDT BPPXOBUZJLKymynic03/01/2025 5:19 AM EDT OINGPJOHUMswpjdc22/01/2025 5:19 AM EDT CBC WITH AUTO QYUSHIRHTQWWXfemoly14/01/2025 5:19 AM EDT BASIC METABOLIC TMJEBAnugpdn74/01/2025 5:19 AM EDT LIVER LZVIBDjammyf67/01/2025 5:19 AM EDT JFTHJACGQXXFrajxud38/01/2025 4:00 AM JQKRZBJERFLVTBPhfczmz91/01/2025 12:00 AM EDTBEDSIDE LAXPGRUPlxvozv93/31/2025 9:20 PM EDT XYTJTBOCDDVGkuhkln48/31/2025 8:00 PM EDTBEDSIDE YFLCSMLHujolvg46/31/2025 4:12 PM EDT DQECNMCNIQIEytlrfg48/31/2025 4:00 PM EDTBLOOD GAS, DDPXLKCGDmgzruw96/31/2025 3:43 PM EDT BEDSIDE DXUOSUQTawehlr08/31/2025 12:[address] BRAIN WO DWHQNALP14/31/2025 10:42 AM EDT EXTRA TUBES LAVENDER TOP ON VNSXlnqriq48/31/2025 9:01 AM EDT CBC WITH AUTO CPVWKCNHYOIUWopbkol83/31/2025 9:01 AM EDT BASIC METABOLIC YTPPOOdixaks83/31/2025 9:01 AM EDT EXTRA HRRMJKpbsunk03/31/2025 9:01 AM EDT BEDSIDE HBSORLPWjwzwsw06/31/2025 8:59 AM EDT XMBREYIALVLJtbseei64/31/2025 8:00 AM EDTBEDSIDE XTDONYLKgtgdql28/31/2025 7:32 AM EDT LIVER SWNHOYaxmjju13/31/2025 5:32 AM EDT LAVENDER QBNWwetxob28/31/2025 5:29 AM EDT RAINBOW GODIYpbtigv84/31/2025 5:29 AM EDT LQWXKFLQIJXVlxhsab15/31/2025 4:00 AM CKXQUETIBJWDOUYcmsebe23/31/2025 12:00 AM EDTBEDSIDE DLUDOMLIcgiftz19/30/2025 8:16 PM EDT BEDSIDE ZYNMWDUXsrsdaf40/30/2025 5:00 PM EDT FAUBRPPRACVJxfzwdf77/30/2025 4:00 PM EDTXR CHEST 1 HBVsnmags91/30/2025 12:57 PM EDT BEDSIDE FEKGFKJWujoyvm38/30/2025 12:30 PM EDT IIHAACUXSFMPsyuzuq59/30/2025 12:00 PM EDTLACTATE W/ BVWUESBDYI24/30/2025 11:17 AM EDT BEDSIDE FGWQDKEFoupjla21/30/2025 9:21 AM EDT XBKFHRAKWHHMaoyavz04/30/2025 8:00 AM EDTNOCTURNAL OXIMETRY STUDYRoutine 05/12/2025 7:45 AM EDTHEMOGLOBIN R3WYac-Jz83/30/2025 5:54 AM EDT YRJWSEWRVHttbloo70/30/2025 5:54 AM EDT CBC WITH AUTO JYKUXNICIARMYvrqmfm14/30/2025 5:54 AM EDT BASIC METABOLIC ZTDJYRcoloml21/30/2025 5:54 AM EDT BGZPFCXSBGPGyougeo37/30/2025 4:00 AM LAKQGAESYIFPZUUhuqksm16/30/2025 12:00 AM EDTBEDSIDE WGQNMQYZrwyoqs00/29/2025 8:56 PM EDT WAFWSYXXGDQPmzljqt54/29/2025 8:00 PM EDTBEDSIDE LSVILSXKbyauyq11/29/2025 5:06 PM EDT BEDSIDE LQFOJKLRilluzk89/29/2025 2:12 PM EDT BEDSIDE LKYXABHHwxyxvo26/29/2025 1:56 PM EDT TEFLCVVGNEFUmmthox02/29/2025 8:00 AM NMNFKAEPWPIVVlbouzi82/29/2025 5:25 AM EDT CBC WITH AUTO TJDMQMTEXTVNCkrcvcm40/29/2025 5:25 AM EDT BASIC METABOLIC KIJTJHbnaycf31/29/2025 5:25 AM EDT ECHO COMPLETE W SNHMUXBALdbsdpt51/28/2025 9:42 AM EDT BLOOD GAS, EXNLJWNNChlxkmi81/28/2025 9:09 AM EDT VASC VENOUS DUPLEX LOWER NRJOQLZOIXeccamn40/28/2025 9:02 AM EDT LDAGVMSOPEfdlfrd91/28/2025 5:48 AM EDT CBC WITH AUTO WEQYNPIQPSSYFossnro79/28/2025 5:48 AM EDT BASIC METABOLIC ALIAXBiyjysn89/28/2025 5:48 AM EDT CRUXALCWDWOLgtdaxg58/28/2025 4:01 AM GLXKTMMYRQDDNLWxbiuog00/28/2025 12:00 AM EDTURINE CREATININE,CHHSXLYhvkfmd20/27/2025 11:14 PM EDT PROTEIN CREAT PQLSRPaxrfyt36/27/2025 11:14 PM EDT IAHDLCBTVKHmtiems02/27/2025 11:14 PM EDT SODIUM, URINE, EFFOQKJrzkorm00/27/2025 11:14 PM EDT URINE CULTURESTAT Add-on05/09/2025 11:14 PM EDT BLOOD GAS, HIBMIQBofrugd77/27/2025 3:14 PM EDT CYTOPLASMIC NEUTROPHILIC AB (ANCA), DIjpwsor63/27/2025 11:53 AM EDT FOLATEAdd-On05/09/2025 11:52 AM EDT VITAMIN C85Wva-In48/27/2025 11:52 AM EDT FERRITINAdd-On05/09/2025 11:52 AM EDT IRON AND TIBCAdd-On05/09/2025 11:52 AM EDT VIVEK SCREEN W/ REFLEXSTAT Add-on05/09/2025 11:52 AM EDT CK TOTALAdd-On05/09/2025 11:52 AM EDT GLOMERULAR BASEMENT MEMBRANE IGG LVEydqhjb83/27/2025 11:52 AM EDT PROTEINASE 3 AB UG2KBKC8605/09/2025 11:52 AM EDT MYELOPEROXIDASE MDSHFW47 11:52 AM EDT FREE LIGHT VILOERSldswby10/27/2025 11:52 AM EDT COMPLEMENT PROFILE (C3 AND C4)Gpkvxai2705/09/2025 11:52 AM EDT PROTEIN ELECTROPHORESIS, YOXTATgppyqu77/27/2025 11:52 AM EDT EKBUZCNCOOCUieoxyt32/27/2025 8:00 AM EDTRHEUMATOID FACTORAdd-On05/09/2025 5:56 AM EDT DOUBLE STRANDED DNA ABAdd-On05/09/2025 5:56 AM EDT VIVEK SCREEN W/ REFLEXAdd-On05/09/2025 5:56 AM EDT URIC ACIDAdd-On05/09/2025 5:56 AM EDT CBC WITH AUTO XTOOISDYLICRSmhqizt04/27/2025 5:56 AM EDT COMPREHENSIVE METABOLIC HHVKTZuczaxv57/27/2025 5:56 AM EDT UVRVDOMHDSHJghwobp55/27/2025 4:00 AM FYYTUKRUXMUSICFamdbap07/27/2025 12:00 AM EDTBEDSIDE BVPZHRJTnbcvnt39/26/2025 9:36 PM EDT QYFVIJFENZPSudorpj07/26/2025 8:40 PM BBCJUNXWCQKKJLBujvqpp20/26/2025 8:40 PM EDT WZOVKHTPGIZTenyusj16/26/2025 8:40 PM ETDDGESCKUHOSTDsclnyk08/26/2025 8:40 PM EDT UUWTREXGWHBOsavirp94/26/2025 8:40 PM WVMYCFFCSEHTROTidtmlh80/26/2025 8:40 PM EDT PULSE OXIMETRY, QPRMFhuegeg72/26/2025 8:30 PM EDTXR CHEST 1 IGDnujrev70/26/2025 4:[address] ABDOMEN AND PELVIS WO CJJCUoscnxv20/26/2025 11:[address] ABDOMEN AND PELVIS WO FSMETbuhakp07/20/2025 2:[address] BRAIN WO BOJHKdwblyr95/20/2025 1:[address] CHEST WO GFPSOndxmlw30/20/2025 1:00 PM EDT Pain XR CHEST 1 NSTgsdode35/20/2025 10:20 AM EDT Pain from Last 3 Months Results * (ABNORMAL) Bedside Glucose *Place/Obtain serum glucose if >500 per glucometer. (05/20/2025 8:47 AM EST) Only the most recent of40 resultswithin the time period is included. ComponentValueRef RangeTest MethodAnalysis TimePerformed AtPathologist Signature Bedside Glucose (POC)161(H)65 - 99 mg/dL05/20/2025 8:53 AM [facility] LABORATORYSpecimen (Source)Anatomical Location / LateralityCollection Method / VolumeCollection TimeReceived Timearterial/messqefmd49/07/2025 8:47 AM EST 05/20/2025 8:53 AM EST Narrative Authorizing ProviderResult TypeResult StatusTaylor Amada Al ST. [facility]ITAL[facility]INT OF CARE TEST ORDERABLESFinal ResultPerforming OrganizationAddressCity/State/ZIP Code Phone Number [facility] [address] [place] [address], * (ABNORMAL) CBC auto differential (05/20/2025 5:44 AM EST) Only the most recent of12 resultswithin the time period is included. ComponentValueRef RangeTest MethodAnalysis TimePerformed AtPathologist Signature WBC8.64 - 11 X10^9/L107/20/2024 6:26 AM [facility]ORATORYRBC Count3.04(L)3.8 - 5.2 X10^12/L107/20/2024 6:26 AM [facility] LABORATORYHemoglobin9.6(L)11.7 - 15.5 g/dL05/20/2025 6:26 AM [facility] QTQRGYIWLABjvavgyhzd58.8(L)35 - 47 %05/20/2025 6:26 AM [facility] UWIXEXXOCHJFG5977 - 100 fL05/20/2025 6:26 AM [facility] LKVDAUWXNGEXJ32.627 - 34 pg05/20/2025 6:26 AM [facility] KQWFETGKSIIWXY91.332 - 36 g/dL05/20/2025 6:26 AM [facility] MSOBRUPXACSEP03.3(H)11.5 - 15 %05/20/2025 6:26 AM [facility] LABORATORYPlatelet [id number] - 450 X10^9/L107/20/2024 6:26 AM [facility] LABORATORYMPV9.57 - 12 fL05/20/2025 6:26 AM [facility]OR[facility]ORYNeutrophils %62.5%05/20/2025 6:26 AM [facility]OR[facility]ORYLymphocytes %22.3%05/20/2025 6:26 AM [facility] LABOR[facility]ORYMonocytes %9.8%05/20/2025 6:26 AM [facility]OR[facility]ORYEosinophils %4.8%05/20/2025 6:26 AM [facility] LABORATORYBasophils %0.6%05/20/2025 6:26 AM [facility] LABORATORYNeutrophils Absolute (A)5.41.5 - 6.6 X10^9/L107/20/2024 6:26 AM [facility] LABORATORYLymphocytes Absolute1.91.0 - 3.5 X10^9/L107/20/2024 6:26 AM [facility]ORATORYMonocytes Absolute0.80.0 - 0.9 X10^9/L107/20/2024 6:26 AM [facility]ORYEosinophils Absolute0.40.0 - 0.4 X10^9/L107/20/2024 6:26 AM [facility]ORATORYBasophils Absolute0.10.0 - 0.2 X10^9/L107/20/2024 6:26 AM [facility] LABORATORYDifferential TypeAUTOMATED LQTTGMZQPHWJ74/07/2025 6:26 [facility] LABORATORYSpecimen (Source)Anatomical Location / LateralityCollection Method / VolumeCollection TimeReceived TimeBloodVenous blood / UnknownVenipuncture / Eustasz0105/20/2025 5:44 AM EST05/20/2025 6:08 AM EST Narrative Authorizing ProviderResult TypeResult StatusAmhossein Drummond MDLAB BLOOD ORDERABLES Final ResultPerforming OrganizationAddressCity/State/ZIP CodePhone Number [facility] [phone] [place] [address], * Phosphorus (05/20/2025 5:44 AM EST) Only the most recent of7 resultswithin the time period is included. ComponentValueRef RangeTest MethodAnalysis TimePerformed AtPathologist Signature PHOSPHORUS4.62.4 - 4.9 mg/dL05/20/2025 9:38 AM [facility] LABORATORYSpecimen (Source)Anatomical Location / LateralityCollection Method / VolumeCollection TimeReceived TimeBloodVenous blood / UnknownVenipuncture / Koxxvpe5505/20/2025 5:44 AM EST05/20/2025 9:23 AM EST Narrative Authorizing ProviderResult TypeResult StatusGustavo Enriquez MDLAB BLOOD ORDERABLES Final ResultPerforming OrganizationAddressCity/State/ZIP CodePhone Number [facility] [address] [place] [address], * Magnesium (05/20/2025 5:44 AM EST) Only the most recent of10 resultswithin the time period is included. ComponentValueRef RangeTest MethodAnalysis TimePerformed AtPathologist Signature MAGNESIUM2.61.8 - 2.6 mg/dL05/20/2025 9:38 AM [facility] LABORATORYSpecimen (Source)Anatomical Location / LateralityCollection Method / VolumeCollection TimeReceived TimeBloodVenous blood / UnknownVenipuncture / Fwyqkeg6105/20/2025 5:44 AM EST05/20/2025 9:23 AM EST Narrative Authorizing ProviderResult TypeResult StatusRamy Lee BARRY BLOOD ORDERABLES Final ResultPerforming OrganizationAddressCity/State/ZIP CodePhone Number [facility] [address] [place] [address], * (ABNORMAL) Basic Metabolic Panel (05/20/2025 5:44 AM EST) Only the most recent of11 resultswithin the time period is included. ComponentValueRef RangeTest MethodAnalysis TimePerformed AtPathologist Signature [id number] - 146 mmol/L107/20/2024 9:38 AM [facility] LABORATORYPOTASSIUM3.83.5 - 5.0 mmol/L107/20/2024 9:38 AM [facility] PAYBKLSMMHIETOUVYV56(L)98 - 109 mmol/L107/20/2024 9:38 AM [facility] LABORATORYCARBON UTTHNTO9035 - 32 mmol/L107/20/2024 9:38 AM EST [facility] LABORATORYANION RHS901 - 15 mmol/L107/20/2024 9:38 AM [facility] LABORATORYBLOOD UREA MLJGCJLL17(H)5 - 27 mg/dL 05/20/2025 9:38 AM [facility] LABORATORYCREATININE1.59(H)0.40 - 1.00 mg/dL05/20/2025 9:38 AM [facility] LABORATORYComment: METHOD TRACEABLE TO IDMS [id number](H)65 - 99 mg/dL05/20/2025 9:38 AM [facility]ATORYCALCIUM9.48.5 - 10.5 mg/dL05/20/2025 9:38 AM [facility]EGFR Non-Race Rsbmbuqek16(L)>=60 ml/min/1.73sq.m107/20/2024 9:38 AM [facility]ATORYComment: Reported eGFR is based on the CKD-EPI 2020 equation that does not use a race coefficient. Specimen (Source)Anatomical Location / LateralityCollection Method / Volume Collection TimeReceived TimeBloodVenous blood / UnknownVenipuncture / Unknown 05/20/2025 5:44 AM EST05/20/2025 9:23 AM EST Narrative Authorizing ProviderResult TypeResult StatusGustavo BARRY BLOOD ORDERABLES Final ResultPerforming OrganizationAddressCity/State/ZIP CodePhone Number [facility] [address] [place] [address], [place] [phone] * X-ray abdomen ap 1 view (05/19/2025 [...] on 05/19/2025 3:38 PM Authorizing ProviderResult TypeResult StatusTaylalbina [facility] ORDERABLESFinal Result * (ABNORMAL) CK Total (05/19/2025 6:12 AM EST) Only the most recent of4 resultswithin the time period is included. ComponentValueRef RangeTest MethodAnalysis TimePerformed AtPathologist Signature CPK11(L)24 - 170 U/L107/20/2024 10:55 AM [facility] Specimen (Source)Anatomical Location / LateralityCollection Method / Volume Collection TimeReceived TimeBloodVenous blood / UnknownCentral Line / Unknown 05/19/2025 6:12 AM EST05/19/2025 6:23 AM EST Narrative Authorizing ProviderResult TypeResult StatusKatkelin Damon PULMONARY NURSE PRACTITIONER-CNPLAB BLOOD ORDERABLESFinal ResultPerforming OrganizationAddressCity/State/ZIP CodePhone Number [facility] [address] [place] [address], * (ABNORMAL) Blood Gas, Arterial (05/19/2025 12:12 AM EST) Only the most recent of3 resultswithin the time period is included. ComponentValueRef RangeTest MethodAnalysis TimePerformed AtPathologist Signature Sample byvtUAAUJBIT44/06/2025 12:14 AM [facility] LABORATORYpH, Arterial 7.3867.350 - 7.9005305/19/2025 12:14 AM [facility] LABORATORYpCO2, Mlyjcyxu96.9(H)35.0 - 45.0 mmHg05/19/2025 12:14 AM [facility] PO2, Fhhaqear25(L)80 - 100 mmHg05/19/2025 12:14 AM [facility] Base, Axdthj46.0(H)0.0 - 2.0 mmol/L107/19/2024 12:14 AM [facility] LABORATORYHCO3, Nsohbnmc94.9(H)22.0 - 26.0 mmol/L107/19/2024 12:14 AM [facility]%O2 Saturation, Gasnhxvv89.0(L)>90.0 %05/19/2025 12:14 AM [facility] LABORATORYAllen's testN/A107/19/2024 12:14 AM [facility] OKRJSFITCZAAF335%05/19/2025 12:14 AM [facility] LABORATORYSample siteL Brach05/19/2025 12:14 AM [facility] LABORATORYInsp. O2 conc.28% 05/19/2025 12:14 AM [facility] LABORATORYSource Of OxygenRoom Air 05/19/2025 12:14 AM [facility] LABORATORYSpecimen (Source)Anatomical Location / LateralityCollection Method / VolumeCollection TimeReceived Time arterial (Blood, Arterial)05/19/2025 12:12 AM EST05/19/2025 12:14 AM EST Narrative Authorizing ProviderResult TypeResult StatusTaylalbina Al MDLAB BLOOD ORDERABLESFinal ResultPerforming OrganizationAddressCity/State/ZIP CodePhone Number [facility] [address] [place] [address], * X-ray chest 1 view (05/18/2025 4:16 PM EST) Only the most recent of5 resultswithin the time period is included. Anatomical RegionLateralityModalityBody, ChestN/AComputed RadiographySpecimen (Source)Anatomical Location / LateralityCollection Method [...] 05/18/2025 4:30 PM Authorizing ProviderResult TypeResult Ileana [facility] ORDERABLESFinal Result * Potassium (05/18/2025 1:36 PM EST) Only the most recent of3 resultswithin the time period is included. ComponentValueRef RangeTest MethodAnalysis TimePerformed AtPathologist Signature POTASSIUM4.33.5 - 5.0 mmol/L107/18/2024 2:40 PM [facility]ORATORYSpecimen (Source)Anatomical Location / LateralityCollection Method / VolumeCollection TimeReceived TimeBloodVenous blood / Ukebrrb7105/18/2025 1:36 PM EST05/18/2025 1:46 PM EST Narrative Authorizing ProviderResult TypeResult StatusTaylor Amada BARRY BLOOD ORDERABLESFinal ResultPerforming OrganizationAddressCity/State/ZIP CodePhone Number [facility] [address] [place] [address], * IR percutaneous placement nephrostomy tube left (05/16/2025 3:30 PM EST) Anatomical RegionLateralityModalityIRLeftX-Ray AngiographySpecimen (Source) Anatomical Location / LateralityCollection Method / VolumeCollection Time Received Time Narrative 05/16/2025 3:47 PM EST 1. Ultrasound guided puncture of left renal collecting system. 2. Left Antegrade nephrostogram. 3. Fluoroscopic guided placement of left 8 British percutaneous nephrostomy catheter. CLINICAL INDICATION: Left hydronephrosis [...] direct ultrasound needle visualization, and an ultrasound tax compliance representative image was obtained and saved in [...] tract was further dilated, then an 8 British percutaneous nephrostomy catheter was introduced over the wire and formedin the renal pelvis during real-time fluoroscopic guidance. A fluoroscopic spot image was obtained and saved in PACS. The catheter was sutured to the skin with 2.0 Prolene sutures and connected to dependent drainage Reference Air Kerma = 15.4 mGy Fluoroscopy time: 1.8 minutes Saved images: 1 Estimated blood loss: Minimal Edi Coordinator: None. Complications: None. IMPRESSION: 1. ??Successful fluoroscopic guided placement of left 8 British percutaneous nephrostomy catheter connected to dependent drainage. 2. Before any attempt at antegrade left stent removal, would recommend waiting until tract matures,patient's respiratory status improves, and no further concern for urinary infection. Finalized by Demetri Begum on 05/16/2025 3:47 PM Authorizing ProviderResult TypeResult StatusSiddshyanne WRIGHT IR ORDERABLESEdited Result - Final * (ABNORMAL) Blood gas, venous (05/15/2025 11:50 AM EST) Only the most recent of2 resultswithin the time period is included. ComponentValueRef RangeTest MethodAnalysis TimePerformed AtPathologist Signature Sample yqbvQKUKVR17/02/2025 11:53 AM [facility] LABORATORYpH, Venous 7.319(L)7.320 - 7.3758805/15/2025 11:53 AM [facility] LABORATORYpCO2, Nqvlqk29.1(H)35.0 - 50.0 mmHg05/15/2025 11:53 AM [facility] pO2, Xszeqh04(H)30 - 50 mmHg05/15/2025 11:53 AM [facility] Base, Rrnaap37.0(H)0.0 - 2.0 mmol/L107/15/2024 11:53 AM [facility] LABORATORYHCO3, Gqkxaw39.2(H)20.0 - 24.0 mmol/L107/15/2024 11:53 AM [facility]%O2 Saturation, Iojzqd33.0%05/15/2025 11:53 AM [facility] LABORATORYAllen's testN/A107/15/2024 11:53 AM [facility] CGNCPZODOIPEJ5309%05/15/2025 11:53 AM [facility] LABORATORYSample site N/A107/15/2024 11:53 AM [facility] LABORATORYInsp. O2 conc.28%05/15/2025 11:53 AM [facility] LABORATORYSource Of QjrbjnCL07/02/2025 11:53 AM [facility] LABORATORYSpecimen (Source)Anatomical Location / Laterality Collection Method / VolumeCollection TimeReceived TimevenousVenous blood / Uspisff1605/15/2025 11:50 AM EST05/15/2025 11:53 AM EST Narrative Authorizing ProviderResult TypeResult StatusGuy BARRY BLOOD ORDERABLES Final ResultPerforming OrganizationAddressCity/State/[facility] HospitalPhone Number [facility] [address] [place] [address], * Protime & INR (05/15/2025 11:47 AM EST)ComponentValueRef RangeTest Method Analysis TimePerformed AtPathologist JuhnfzfeuENRYUWZ17.39.8 - 13.2 sec 05/15/2025 12:31 PM [facility]ATORYINR1.00.9 - 1.2 05/15/2025 12:31 PM [facility]ORATORYSpecimen (Source) Anatomical Location / LateralityCollection Method / VolumeCollection Time Received TimeBloodVenous blood / UnknownVenipuncture / Xtnagmr9705/15/2025 11:47 AM EST05/15/2025 12:11 PM EST Narrative Authorizing ProviderResult TypeResult StatusBora BARRY BLOOD ORDERABLESFinal ResultPerforming OrganizationAddressCity/State/ZIP CodePhone Number [facility] [address] [place] [address], * Liver panel (05/15/2025 4:51 AM EST) Only the most recent of3 resultswithin the time period is included. ComponentValueRef RangeTest MethodAnalysis TimePerformed AtPathologist Signature TOTAL PROTEIN6.46.0 - 8.0 g/dL05/15/2025 6:19 AM [facility]ATORYALBUMIN3.33.2 - 5.3 g/dL05/15/2025 6:19 AM [facility]ORATORYBILIRUBIN,TOTAL0.50.3 - 1.2 mg/dL05/15/2025 6:19 AM [facility]ATORYALKALINE SHUNJWJIURY6892 - 130 U/L107/15/2024 6:19 AM EST [facility] FLXAOKHZWOCMX68<=41 U/L107/15/2024 6:19 AM [facility]ORYALT3<=31 U/L107/15/2024 6:19 AM [facility]ORATORYBILIRUBIN,DIRECT0.1<=0.4 mg/dL05/15/2025 6:19 AM [facility]ORATORYSpecimen (Source)Anatomical Location / Laterality Collection Method / VolumeCollection TimeReceived TimeBloodVenous blood / UnknownVenipuncture / Zlnjyap5005/15/2025 4:51 AM EST05/15/2025 5:39 AM EST Narrative Authorizing ProviderResult TypeResult StatusSwapna BARRY BLOOD ORDERABLESFinal ResultPerforming OrganizationAddressCity/State/ZIP CodePhone Number [facility] [address] [place] [address], * Blood culture #2 (05/14/2025 9:52 AM EDT) Only the most recent of2 resultswithin the time period is included. ComponentValueRef RangeTest MethodAnalysis TimePerformed AtPathologist Signature CULTURE RESULTSNO GROWTH 5 DAYS05/19/2025 10:01 AM [facility]ORATORYSpecimen (Source)Anatomical Location / LateralityCollection Method / VolumeCollection TimeReceived TimeBloodVenous blood / UnknownVenipuncture / Biehxpl8705/14/2025 9:52 AM EDT107/14/2024 10:28 AM EDT Narrative [facility] - 05/19/2025 10:01 AM EST Suboptimal volume of blood collected, Results may be affected. Authorizing ProviderResult TypeResult StatusLincony Ramos APRN-CNPMICROBIOLOGY - GENERAL ORDERABLESFinal ResultPerforming OrganizationAddressCity/State/ZIP CodePhone Number [facility] [address] [place] [address], * (ABNORMAL) B-type natriuretic peptide (05/14/2025 5:19 AM EDT)ComponentValue Ref RangeTest MethodAnalysis TimePerformed AtPathologist SignatureBNP1,173(H) <=100 pg/mL05/14/2025 9:11 AM [facility] LABORATORYSpecimen (Source)Anatomical Location / LateralityCollection Method / VolumeCollection TimeReceived TimeBloodVenous blood / UnknownVenipuncture / Xjyyijw5905/14/2025 5:19 AM EDT107/14/2024 6:14 AM EDT Narrative Authorizing ProviderResult TypeResult StatusVidhmatias Lenora DOLAB BLOOD ORDERABLES Final ResultPerforming OrganizationAddressty/State/ZIP CodePhone Number [facility] [address] [place] [address], * (ABNORMAL) Ionized calcium (05/14/2025 5:19 AM EDT)ComponentValueRef RangeTest MethodAnalysis TimePerformed AtPathologist SignatureIONIZED CALCIUM - ICAN4.4 (L)4.5 - 5.3 mg/dL05/14/2025 8:05 AM [facility] Specimen (Source)Anatomical Location / LateralityCollection Method / Volume Collection TimeReceived TimeBloodVenous blood / UnknownVenipuncture / Unknown 05/14/2025 5:19 AM EDT107/14/2024 6:17 AM EDT Narrative Authorizing ProviderResult TypeResult StatusGustavo BARRY BLOOD ORDERABLES Final ResultPerforming OrganizationAddressCity/State/ZIP CodePhone Number [facility] [address] [place] [address], * CT brain without contrast (05/13/2025 10:42 AM EDT) Only the most recent of2 resultswithin the time period is included. Anatomical RegionLateralityModalityNeuro, Head, Head and Neck, Neuro CoveraN/A Computed TomographySpecimen (Source)Anatomical Location / LateralityCollection Method / [...] 11:06 AM Authorizing ProviderResult TypeResult StatusAlyssa Chandra [facility] ORDER[facility] Final Result * Lavender Top On Ice (05/13/2025 9:01 AM EDT)ComponentValueRef RangeTest Method Analysis TimePerformed AtPathologist SignatureExtra TubeAuto Resulted 05/13/2025 10:02 AM [facility] LABORATORYSpecimen (Source) Anatomical Location / LateralityCollection Method / VolumeCollection Time Received TimeBloodVenous blood / UnknownVenipuncture / Tlkmbhm6605/13/2025 9:01 AM EDT1 9:11 AM EDT Narrative Authorizing ProviderResult TypeResult StatusAmhossein BRARY BLOOD ORDERABLES Final ResultPerforming OrganizationAddressCity/State/ZIP CodePhone Number [facility] [address] [place] [address], * Lavender Top (05/13/2025 5:29 AM EDT)ComponentValueRef RangeTest Method Analysis TimePerformed AtPathologist SignatureExtra TubeAuto Resulted 05/13/2025 7:01 AM [facility] LABORATORYSpecimen (Source) Anatomical Location / LateralityCollection Method / VolumeCollection Time Received TimeBloodVenous blood / Zrxwcnv0905/13/2025 5:29 AM EDT1 5:53 AM EDT Narrative Authorizing ProviderResult TypeResult StatusGuy BARRY BLOOD ORDERABLES Final ResultPerforming OrganizationAddressCity/State/ZIP CodePhone Number [facility] [address] [place] [address], * Lactate w/ Reflex (05/12/2025 11:17 AM EDT)ComponentValueRef RangeTest Method Analysis TimePerformed AtPathologist SignatureLACTATE W/REFLEX1.60.4 - 2.0 mmol/L1 12:03 PM [facility] LABORATORYSpecimen (Source)Anatomical Location / LateralityCollection Method / VolumeCollection TimeReceived TimeBloodVenous blood / UnknownVenipuncture / Wbrwpxc7805/12/2025 11:17 AM EDT1 11:29 AM EDT Narrative [facility] - 05/12/2025 12:03 PM EDT Result did not trigger repeat Lactate, re-order if needed. Authorizing ProviderResult TypeResult StatusAmhossein Drummond MDLAB BLOOD ORDERABLES Final ResultPerforming OrganizationAddressCity/State/ZIP CodePhone Number [facility] [address] [place] [address], * Nocturnal oximetry study (05/12/2025 7:45 AM EDT) Narrative Authorizing ProviderResult TypeResult StatusMoaldo Couch [facility] C[facility] ORDERABLESEdited Result - Final * (ABNORMAL) Hemoglobin A1c (05/12/2025 5:54 AM EDT)ComponentValueRef RangeTest MethodAnalysis TimePerformed AtPathologist SignatureHEMOGLOBIN A1C6.3(H)4.4 - 5.6 %05/12/2025 12:00 PM [facility] LABORATORYComment: ?ADA Guidelines ?Result ?HgbA1c ? Normal : ? less than 5.7 % ? Prediabetes : ?5.7 % ??to 6.4 % Diabetes : > 6.4 % ?Use with caution in patients with abnormal hemoglobin variants as ??the half-life of red blood cells and in vivo glycation rates are ??affected. EST. AVERAGE PLKRCSL618nu/dL05/12/2025 12:00 PM [facility] LABORATORYSpecimen (Source)Anatomical Location / LateralityCollection Method / VolumeCollection TimeReceived TimeBloodVenous blood / UnknownVenipuncture / Gpchaif4405/12/2025 5:54 AM EDT1 5:54 AM EDT Narrative Authorizing ProviderResult TypeResult StatusAmhossein BARRY BLOOD ORDERABLES Final ResultPerforming OrganizationAddressCity/State/ZIP CodePhone Number [facility] [address] [place] [address], [place] [phone] * Echo complete W/ contrast (05/10/2025 9:42 AM EDT)ComponentValueRef RangeTest MethodAnalysis TimePerformed AtPathologist SignatureLVOT stroke ypadnp00.53ml WJMNIDSEN8473 - 44 %XCELERALVIDd4.704.07 - 5.65 cmXCELERALVIDs3.302.41 - 3.65 cmXCELERAIVS1.400.6 - 1.1 cmXCELERAPW0.900.6 - 1.1 cmXCELERALVOT diameter2.10 cmXCELERATDI6.96cm/sXCELERAMV TDI E' (medial)3.48cm/sXCELERALA Volume Index 31.6mL/c0QZOPYPTT/A ratio1.17XCELERAE wave deceleration plhm211.00msecXCELERA MV Peak E Pau833.00cm/sXCELERAMV Peak A Gid069.00cm/sXCELERALA size4.50cm XCELERAAortic root3.80cmXCELERALA ebhshg94.00zo5RZGQIHQXT diastolic dimension (basal)29.8fdFPPYZODDBCPN0.06cmXCELERAAV peak rxd522.00cm/sXCELERALVOT peak vel0.87m/sXCELERAAV VTI44.60cmXCELERALVOT peak VTI16.90cmXCELERAAV mean gradient7.00mmHgXCELERAAV peak hcilcihh53.02mmHgXCELERAAV valve area1.31 XCELERAValve area - Index0.7XCELERAMV mean gradient5.00mmHgXCELERAMV peak gradient9.24mmHgXCELERAMV VTI38.10cmXCELERAMV valve area by continuity eq1.54 XCELERAMV pressure 1/2 time40.00msXCELERAMV valve area p 1/2 method5.50cm2 XCELERATR Peak Vel3.3m/sXCELERATR peak ngxcxwgy36.82mmHgXCELERAPV peak gradient2.23mmHgXCELERALV ESV A2C56.70mLXCELERALV ESV A4C52.90mLXCELERAMitral Valve Max Velocity1.52cm/sXCELERALV RWT 2D38.30XCELERAAV Velocity Ratio0.38 XCELERALeft Ventricle Npjx962.303205141743688qENGCBBWHuafjzumbbescjkj Septum Diastolic Thickness by 7N01zrRUZZRZNAgz. RA pzrnxghl8kpYwMRDNCONLU Peak Systolic Kpfoejvo43xoEgACUGVNRPD area11.4ai5ATAXLVCLJFTIU9.84XCELERAZLVIDD -0.20XCELERAEnergy loss index19.61XCELERAAnatomical RegionLateralityModality ChestN/AUltrasoundSpecimen (Source)Anatomical Location [...] motion is globally hypokinetic. Authorizing ProviderResult TypeResult StatusRamy Lee Enriquez [facility] [place] Final Result * Vas venous duplex lwr bilateral (05/10/2025 [...] number beside their name. Procedure Note Dana Cates, DO - 05/10/2025 Right: Portable lower extremity [...] number besidetheir name. Authorizing ProviderResult TypeResult StatusMohammad [facility] VASCULAR ORDERABLESFinal Result * (ABNORMAL) Urine protein creatinine ratio (05/09/2025 11:14 PM EDT)Component ValueRef RangeTest MethodAnalysis TimePerformed AtPathologist SignatureURINE PROTEIN, RANDOM (MG/L)1,090(H)<120 mg/L1 12:04 AM [facility] LABORATORYURINE CREATININE,RDM50.82mg/dL05/10/2025 12:04 AM [facility] LABORATORYU/PRO/EVALUATION ASSISTANT RATIO CALC2.14(H)<=0. 12:04 AM [facility] LABORATORYSpecimen (Source)Anatomical Location / LateralityCollection Method / VolumeCollection TimeReceived TimeUrine (Urine, Indwelling Catheter)05/09/2025 11:14 PM EDT1 11:28 PM EDT Narrative [facility] - 05/10/2025 12:04 AM EDT Nephrotic Syndrome is associated with ratios >3.5 Authorizing ProviderResult TypeResult StatusVidhit Lenora DOURINE ORDERABLESFinal ResultPerforming OrganizationAddressCity/State/ZIP CodePhone Number [facility] [address] [place] [address], * Urine Creatinine,random (05/09/2025 11:14 PM EDT)ComponentValueRef RangeTest MethodAnalysis TimePerformed AtPathologist SignatureURINE CREATININE,RDM50.82 mg/dL05/10/2025 12:04 AM [facility] LABORATORYSpecimen (Source)Anatomical Location / LateralityCollection Method / VolumeCollection TimeReceived TimeUrine (Urine, Indwelling Catheter)05/09/2025 11:14 PM EDT 05/09/2025 11:28 PM EDT Narrative Authorizing ProviderResult TypeResult StatusRamy Lee Enriquez MDURINE ORDERABLESFinal ResultPerforming OrganizationAddressCity/State/ZIP CodePhone Number [facility] [address] [place] [address], * Sodium, urine, random (05/09/2025 11:14 PM EDT)ComponentValueRef RangeTest MethodAnalysis TimePerformed AtPathologist SignatureURINE SODIUM,SKDRNP24 mmol/L1 12:55 AM [facility] LABORATORYSpecimen (Source)Anatomical Location / LateralityCollection Method / VolumeCollection TimeReceived TimeUrine (Urine, Indwelling Catheter)05/09/2025 11:14 PM EDT 05/09/2025 11:28 PM EDT Narrative Authorizing ProviderResult TypeResult StatusVidhit Lenora DOURINE ORDERABLESFinal ResultPerforming OrganizationAddressCity/State/ZIP CodePhone Number [facility] [address] [place] [address], * (ABNORMAL) Urinalysis (05/09/2025 11:14 PM EDT)ComponentValueRef RangeTest MethodAnalysis TimePerformed AtPathologist SignatureCOLORYellowYellow 05/10/2025 12:15 AM [facility] LABORATORYTURBIDITYHazy(A) Clear05/10/2025 12:15 AM [facility] LABORATORYSPECIFIC GRAVITY1.0131.003 - 1.0334405/10/2025 12:15 AM [facility] KNYKFKLRRLAWVPBQSJgbuguwpVvyapfhy03/28/2025 12:15 AM [facility] LABORATORYPH,URINE6.05.0 - 8. 12:15 AM [facility] LABORATORYLEUKOCYTE ESTERASELarge(A)Ovkfugwc72/28/2025 12:15 AM [facility] PIJQIEKSDGNYCCPBW30 mg/dL(A)Lhrszygc79/28/2025 12:15 AM [facility] LABORATORYKETONES (URINE)NegativeNegative 05/10/2025 12:15 AM [facility] LABORATORYUROBILINOGEN<1.1 eu/dL<1.1 eu/dL05/10/2025 12:15 AM [facility] BILIRUBIN (URINE)QdeijaitPysnqgtu70/28/2025 12:15 AM [facility] LABORATORYBLOOD/ACEPafglswyRxryflct63/28/2025 12:15 AM [facility] LABORATORYHYALINE CASTS6(H)0 - 12:15 AM [facility] LABORATORYMUCOUSPresent(A)None05/10/2025 12:15 AM [facility] LABORATORYR.B.CELLS20 - 12:15 AM [facility] LABORATORYSQUAMOUS ICJYPVAMKB54 - 12:15 AM [facility] LABORATORYW.B.CELLS75(H)0 - 12:15 AM [facility] LABORATORYGLUCOSE (URINE)NegativeNegative 05/10/2025 12:15 AM [facility] LABORATORYSpecimen (Source) Anatomical Location / LateralityCollection Method / VolumeCollection Time Received TimeUrine (Urine, Indwelling Catheter)05/09/2025 11:14 PM EDT 05/09/2025 11:28 PM EDT Narrative Authorizing ProviderResult TypeResult StatusVidhit Lenora DOURINE ORDERABLESFinal ResultPerforming OrganizationAddressCity/State/ZIP CodePhone Number [facility] [address] [place] [address], * (ABNORMAL) Urine Culture Urine, Indwelling Catheter (05/09/2025 11:14 PM EDT) ComponentValueRef RangeTest MethodAnalysis TimePerformed AtPathologist SignatureCULTURE RESULTS>100,000 CFU/mL Maritza glabrata(A)05/18/2025 9:40 AM [facility]ORATORYCULTURE ZGBDYTU81,000-50,000 CFU/mL Vancomycin resistant Enterococcus faecium(A)05/18/2025 9:40 AM [facility]ORATORYComment: Ampicillin or Amoxicillin is the drug of choice for uncomplicated cystitis caused by enterococci. Cephalosporins are inappropriate. Specimen (Source)Anatomical Location / LateralityCollection Method / Volume Collection TimeReceived TimeUrine (Urine, Indwelling Catheter)05/09/2025 11:14 PM EDT1 11:28 PM EDT Narrative [facility] - 05/18/2025 9:40 AM EST [...] Edited Result - FinalPerforming OrganizationAddressCity/State/ZIP CodePhone Number [facility] [address] [place] [address], * Cytoplasmic Neutrophilic Ab (ANCA), S (05/09/2025 11:53 AM EDT)ComponentValue Ref RangeTest MethodAnalysis TimePerformed AtPathologist SignatureC-ANCA LrcllhjeEhnqgakg53/28/2025 2:51 PM [facility] LABORATORIESP-ANCANegative Zmkwumrq44/28/2025 2:51 PM [facility] LABORATORIESComment: Negative for cANCA and pANCA patterns by immunofluorescence. ADDITIONAL INFORMATION This test was developed and its performance characteristics determined by [facility] in a manner consistent with CLIA requirements. This test has not been cleared or approved by the U.S. Food and Drug Administration. Test Performed by: [facility] [address] [place] [address] Mult Au Matic Operator: Florence Shukla Ph.D.; CLIA# [id number] Specimen (Source)Anatomical Location / LateralityCollection Method / Volume Collection TimeReceived TimeBloodVenous blood / UnknownVenipuncture / Unknown 05/09/2025 11:53 AM EDT1 12:32 PM EDT Narrative Authorizing ProviderResult TypeResult StatusVidhit Lenora DOLAB BLOOD ORDERABLES Final ResultPerforming OrganizationAddressCity/State/ZIP CodePhone Number [facility] [address] [place] [address], [place] * Glomerular basement membrane IgG AB (05/09/2025 11:52 AM EDT)ComponentValueRef RangeTest MethodAnalysis TimePerformed AtPathologist SignatureGBM IGG AB<0.2 <1.0 AI05/09/2025 4:36 PM [facility] LABORATORYSpecimen (Source)Anatomical Location / LateralityCollection Method / VolumeCollection TimeReceived TimeBloodVenous blood / UnknownVenipuncture / Edfcwuc9305/09/2025 11:52 AM EDT1 12:32 PM EDT Narrative Authorizing ProviderResult TypeResult StatusVidhit Lenora DOLAB BLOOD ORDERABLES Final ResultPerforming OrganizationAddressty/State/ZIP CodePhone Number [facility] [place] [address], * Proteinase 3 AB PR3 (05/09/2025 11:52 AM EDT)ComponentValueRef RangeTest MethodAnalysis TimePerformed AtPathologist SignaturePROTEINASE 3 IGG AB<0.2 <1.0 AI05/09/2025 4:36 PM [facility] LABORATORYSpecimen (Source)Anatomical Location / LateralityCollection Method / VolumeCollection TimeReceived TimeBloodVenous blood / UnknownVenipuncture / Rhfonry7205/09/2025 11:52 AM EDT1 12:32 PM EDT Narrative Authorizing ProviderResult TypeResult StatusVidhit Lenora DOLAB BLOOD ORDERABLES Final ResultPerforming OrganizationAddressCity/State/ZIP CodePhone Number [address] [place] [address], * Myeloperoxidase AB (05/09/2025 11:52 AM EDT)ComponentValueRef RangeTest Method Analysis TimePerformed AtPathologist SignatureMYELOPEROXIDASE AB<0.2<1.0 AI 05/09/2025 4:36 PM [facility] LABORATORYSpecimen (Source) Anatomical Location / LateralityCollection Method / VolumeCollection Time Received TimeBloodVenous blood / UnknownVenipuncture / Awbmryk9605/09/2025 11:52 AM EDT1 12:32 PM EDT Narrative Authorizing ProviderResult TypeResult StatusVidhit Lenora DOLAB BLOOD ORDERABLES Final ResultPerforming OrganizationAddHeritage Valley Health Systemty/State/ZIP CodePhone Number [facility] [address] [place] [address], * (ABNORMAL) Free light chains (05/09/2025 11:52 AM EDT)ComponentValueRef Range Test MethodAnalysis TimePerformed AtPathologist SignatureFREE CJ/LAMBD RATIO 1.540.26 - 1.6505/09/2025 5:17 PM [facility] LABORATORYFREE KAPPA LT CHAINS7.98(H)0.33 - 1.94 mg/dL05/09/2025 5:17 PM [facility] LABORATORYFREE LAMBDA LT CHAINS5.17(H)0.57 - 2.63 mg/dL05/09/2025 5:17 PM [facility] LABORATORYSpecimen (Source)Anatomical Location / LateralityCollection Method / VolumeCollection TimeReceived TimeBloodVenous blood / UnknownVenipuncture / Eshqjnm0705/09/2025 11:52 AM EDT1 12:32 PM EDT Narrative Authorizing ProviderResult TypeResult StatusVidhit Lenora DOLAB BLOOD ORDERABLES Final ResultPerforming OrganizationAddressCity/State/ZIP CodePhone Number [facility] [address] [place] [address], * Complement profile (C3 AND C4) (05/09/2025 11:52 AM EDT)ComponentValueRef RangeTest MethodAnalysis TimePerformed AtPathologist SignatureCOMPLEMENT C3125 86 - 184 mg/dL05/09/2025 2:23 PM [facility] COMPLEMENT W32556 - 47 mg/dL05/09/2025 2:23 PM [facility] LABORATORYSpecimen (Source)Anatomical Location / LateralityCollection Method / VolumeCollection TimeReceived TimeBloodVenous blood / UnknownVenipuncture / Fziyzrw1205/09/2025 11:52 AM EDT1 12:32 PM EDT Narrative Authorizing ProviderResult TypeResult StatusVidhit Lenora DOLAB BLOOD ORDERABLES Final ResultPerforming OrganizationAddressCity/State/ZIP CodePhone Number [facility] [address] [place] [address], [place] [phone] * (ABNORMAL) Iron and TIBC (05/09/2025 11:52 AM EDT)ComponentValueRef RangeTest MethodAnalysis TimePerformed AtPathologist BqzpzlnwdGUUU1604 - 170 ug/dL 05/09/2025 3:15 PM [facility] FQKKMSNXIELFGUWMJRVVR882705 - 336 mg/dL05/09/2025 3:15 PM [facility] LABORATORYIRON BINDING 237(L)250 - 425 ug/dL05/09/2025 3:15 PM [facility] IRON VOPSZZSSPT4193 - 50 % PNZTFOJKFH07/27/2025 3:15 PM [facility] LABORATORYSpecimen (Source)Anatomical Location / LateralityCollection Method / VolumeCollection TimeReceived TimeBloodVenous blood / Unknown Venipuncture / Nhqeofc0805/09/2025 11:52 AM EDT1 12:32 PM EDT Narrative Authorizing ProviderResult TypeResult StatusRamy A Mina HelloFreshSRIRAM BLOOD ORDERABLES Final ResultPerforming OrganizationAddressCity/State/ZIP CodePhone Number [facility] [address] [place] [address], [place] [phone] * VIVEK Screen w/ Reflex (05/09/2025 11:52 AM EDT) Only the most recent of2 resultswithin the time period is included. ComponentValueRef RangeTest MethodAnalysis TimePerformed AtPathologist Signature VIVEK SCREEN W/ISKSXRAtxltvwoJpimhuuk72/27/2025 4:35 PM [facility] LABORATORYSpecimen (Source)Anatomical Location / LateralityCollection Method / VolumeCollection TimeReceived TimeBloodVenous blood / Unknown Venipuncture / Mkpsahe7105/09/2025 11:52 AM EDT1 12:32 PM EDT Narrative [facility] - 05/09/2025 4:35 PM EDT Testing performed using multiplex flow immunoassay. Eleven difference antigens associated with systemic autoimmunie diseases (dsDNA, Sm, Sm/OFFSET SECOND PRESS OPERATOR, OFFSET SECOND PRESS OPERATOR, Chromatin, SSA, SSB, Mary-1, Sc170, Ribo P, Centromere B) are included in this sreening tests. Authorizing ProviderResult TypeResult StatusRamy A Mina BARRY BLOOD ORDERABLES Final ResultPerforming OrganizationAddressty/State/ZIP CodePhone Number [facility] [address] [place] [address], [place] [phone] * (ABNORMAL) Protein electrophoresis, serum (05/09/2025 11:52 AM EDT)Component ValueRef RangeTest MethodAnalysis TimePerformed AtPathologist SignatureTOTAL PROTEIN5.7(L)6.0 - 8.0 g/dL05/10/2025 12:00 PM [facility] LABORATORYALPHA 1 GLOBULIN0.40.1 - 0.4 g/dL05/10/2025 12:00 PM [facility] LABORATORYALPHA 2 GLOBULIN0.90.4 - 1.1 g/dL05/10/2025 12:00 PM [facility] LABORATORYBETA GLOBULIN0.70.5 - 1.2 g/dL 05/10/2025 12:00 PM [facility] LABORATORYGAMMA GLOBULIN0.80.5 - 1.6 g/dL05/10/2025 12:00 PM [facility] LABORATORYProtein Electrophoresis InterpUnremarkable protein distribution, no monoclonal bands 05/10/2025 12:00 PM [facility] LABORATORYAlbumin2.9(L)3.4 - 5.3 g/dL05/10/2025 12:00 PM [facility] LABORATORYSpecimen (Source)Anatomical Location / LateralityCollection Method / VolumeCollection TimeReceived TimeBloodVenous blood / UnknownVenipuncture / Dysfhgv5105/09/2025 11:52 AM EDT1 12:32 PM EDT Narrative Authorizing ProviderResult TypeResult StatusVidhit Lenora DOLAB BLOOD ORDERABLES Final ResultPerforming OrganizationAddressCity/State/ZIP CodePhone Number [facility] [address] [place] [address], * Folate (05/09/2025 11:52 AM EDT)ComponentValueRef RangeTest MethodAnalysis TimePerformed AtPathologist SignatureFOLIC ACID22.1>5.8 ng/mL05/09/2025 3:13 PM [facility] LABORATORYSpecimen (Source)Anatomical Location / LateralityCollection Method / VolumeCollection TimeReceived TimeBloodVenous blood / UnknownVenipuncture / Kdhkord1805/09/2025 11:52 AM EDT1 12:32 PM EDT Narrative Authorizing ProviderResult TypeResult StatusRamy Lee BARRY BLOOD ORDERABLES Final ResultPerforming OrganizationAddressCity/State/ZIP CodePhone Number [facility] [address] [place] [address], * Ferritin (05/09/2025 11:52 AM EDT)ComponentValueRef RangeTest MethodAnalysis TimePerformed AtPathologist EoustqemePSNZVDFN21295 - 307 ng/mL05/09/2025 3:10 PM [facility] LABORATORYSpecimen (Source)Anatomical Location / LateralityCollection Method / VolumeCollection TimeReceived TimeBloodVenous blood / UnknownVenipuncture / Tflotia8105/09/2025 11:52 AM EDT1 12:32 PM EDT Narrative Authorizing ProviderResult TypeResult StatusRamy Lee BARRY BLOOD ORDERABLES Final ResultPerforming OrganizationAddressCity/State/ZIP CodePhone Number [facility] [address] [place] [address], * Vitamin B12 (05/09/2025 11:52 AM EDT)ComponentValueRef RangeTest Method Analysis TimePerformed AtPathologist SignatureVITAMIN [id number] - 914 pg/mL 05/09/2025 3:14 PM [facility] LABORATORYSpecimen (Source) Anatomical Location / LateralityCollection Method / VolumeCollection Time Received TimeBloodVenous blood / UnknownVenipuncture / Fwdmjgo1505/09/2025 11:52 AM EDT1 12:32 PM EDT Narrative Authorizing ProviderResult TypeResult StatusRamy Lee BARRY BLOOD ORDERABLES Final ResultPerforming OrganizationAddressty/State/ZIP CodePhone Number [facility] [address] [place] [address], * DNA double-stranded (dsDNA) Abs (05/09/2025 5:56 AM EDT)ComponentValueRef RangeTest MethodAnalysis TimePerformed AtPathologist SignatureDouble Stranded DNA Ab<1<5 IU/ML05/09/2025 1:54 PM [facility] Specimen (Source)Anatomical Location / LateralityCollection Method / Volume Collection TimeReceived TimeBloodVenous blood / UnknownVenipuncture / Unknown 05/09/2025 5:56 AM EDT1 6:09 AM EDT Narrative [facility] - 05/09/2025 1:54 PM EDT Interpretation < 5 Negative 5 - 9 Indeterminate > 9 Positive Authorizing ProviderResult TypeResult StatusVidhit Lenora DOLAB BLOOD ORDERABLES Final ResultPerforming OrganizationAddressCity/State/ZIP CodePhone Number [facility] [address] [place] [address], * Rheumatoid factor (05/09/2025 5:56 AM EDT)ComponentValueRef RangeTest Method Analysis TimePerformed AtPathologist SignatureRHEUMATOID FACTOR<10<20 IU/mL 05/09/2025 12:10 PM [facility] LABORATORYSpecimen (Source) Anatomical Location / LateralityCollection Method / VolumeCollection Time Received TimeBloodVenous blood / UnknownVenipuncture / Btbvdze3705/09/2025 5:56 AM EDT1 6:09 AM EDT Narrative Authorizing ProviderResult TypeResult StatusVidhit Lenora DOLAB BLOOD ORDERABLES Final ResultPerforming OrganizationAddressCity/State/ZIP CodePhone Number [facility] [address] [place] [address], * Uric acid (05/09/2025 5:56 AM EDT)ComponentValueRef RangeTest MethodAnalysis TimePerformed AtPathologist SignatureURIC ACID6.42.6 - 7.2 mg/dL05/09/2025 12:10 PM [facility] LABORATORYSpecimen (Source)Anatomical Location / LateralityCollection Method / VolumeCollection TimeReceived Time BloodVenous blood / UnknownVenipuncture / Ocgdccw1105/09/2025 5:56 AM EDT 05/09/2025 6:09 AM EDT Narrative Authorizing ProviderResult TypeResult StatusVidhit Lenora DOLAB BLOOD ORDERABLES Final ResultPerforming OrganizationAddressCity/State/ZIP CodePhone Number [facility] [address] [place] [address], * (ABNORMAL) Comprehensive metabolic panel (05/09/2025 5:56 AM EDT)Component ValueRef RangeTest MethodAnalysis TimePerformed AtPathologist SignatureSODIUM 631972 - 146 mmol/L1 6:42 AM [facility] POTASSIUM4.03.5 - 5.0 mmol/L1 6:42 AM [facility] OZNEJAEBXHDFDQVYOF24(L)98 - 109 mmol/L1 6:42 AM [facility] LABORATORYCARBON PDTZGYQ75(H)22 - 32 mmol/L1 6:42 AM [facility] LABORATORYANION GAP85 - 15 mmol/L1 6:42 AM EDT [facility] LABORATORYBLOOD UREA JCBEKMQT91(H)5 - 27 mg/dL 05/09/2025 6:42 AM [facility] LABORATORYCREATININE1.86(H)0.40 - 1.00 mg/dL05/09/2025 6:42 AM [facility] LABORATORYComment: METHOD TRACEABLE TO IDNM DXMRVTXSQNGPAOQ507(H)65 - 99 mg/dL05/09/2025 6:42 AM [facility] LABORATORYCALCIUM9.18.5 - 10.5 mg/dL05/09/2025 6:42 AM [facility] LABORATORYTOTAL PROTEIN5.7(L)6.0 - 8.0 g/dL05/09/2025 6:42 AM [facility] LABORATORYALBUMIN3.0(L)3.2 - 5.3 g/dL05/09/2025 6:42 AM [facility] LABORATORYALKALINE TWYPQQFKCPC9481 - 130 U/L1 6:42 AM [facility] PRYTTUCXRZYQD73<=41 U/L1 6:42 AM [facility] LABORATORYALT3<=31 U/L1 6:42 AM [facility] LABORATORYBILIRUBIN,TOTAL0.50.3 - 1.2 mg/dL05/09/2025 6:42 AM [facility] LABORATORYEGFR Non-Race Oiqfpiird23(L)>=60 ml/min/1.73sq.m 05/09/2025 6:42 AM [facility] LABORATORYComment: Reported eGFR is based on the CKD-EPI 2020 equation that does not use a race coefficient. Specimen (Source)Anatomical Location / LateralityCollection Method / Volume Collection TimeReceived TimeBloodVenous blood / UnknownVenipuncture / Unknown 05/09/2025 5:56 AM EDT1 6:09 AM EDT Narrative Authorizing ProviderResult TypeResult StatusMinerva BARRY BLOOD ORDERABLES Final ResultPerforming OrganizationAddressCity/State/ZIP CodePhone Number [facility] [address] [place] [address], * CT abdomen and pelvis without contrast (05/08/2025 11:45 AM EDT) Only the most recent of2 resultswithin the time period is included. Specimen (Source)Anatomical Location / LateralityCollection Method / Volume Collection TimeReceived Time Narrative Authorizing ProviderResult TypeResult StatusScanning Provider ExternalIMG CT ORDERABLESFinal Result * CT chest without contrast (05/02/2025 1:00 PM EDT)Specimen (Source)Anatomical Location / LateralityCollection Method / VolumeCollection TimeReceived Time Narrative Authorizing ProviderResult TypeResult StatusScanning Provider ExternalIMG CT ORDERABLESFinal Result from Last 3 Months Insurance Advance Directives * Full Code (Latest Code Status on File) Date ActivatedDate KvkfrmtrfmkLpiripkm01/26/2025 8:30 PM05/20/2025 1:51 PM Care Teams Team MemberRelationshipSpecialtyStart DateEnd Date Olivia Cazares MD [address] [place] [address] PCP - GeneralFamily Ftcvmacr76/27/25
--- OUTSIDE RECORDS SUMMARY | 2025-05-21 10:35 | XMS_ITS | CCD ---
Author Organization [facility] ion [facility] Care Team Providers Care Soft Top Installer Name Role Phone CHAO CHAPMAN Unavailable Unavailable LEE, LI Unavailable Unavailable CHAO CHAPMAN Unavailable Unavailable ROSA, LI Unavailable Unavailable PHYSICIAN, [...] Attending Unavailable McGuinn IIShahrzad Referring Unav ailable Li Lee Primary Care Unavailable McGuinn IIShahrzad Attending Unav ailable McGuinn II, Shahrzad Green Referring Unav ailable LeeLi blandon Primary Care Unavailable FatmatauinShahrzad foss II Attending Unav ailable MD Li Lee Primary Care Provider MD Ross Colmenares Attending Provider [phone] Ross Colmenares Unavailable Maxine Llanes Primary Care Physician Da Lozano II Unavailable Shahrzad Morales MD Unavailable [phone] Stefan Best MD Primary Care Provider [phone] MD Stefan Best Primary Care Provider [phone] MD Da Lozano II Attending Provider MD Alyssa Ramírez Emergency Provider DO Rl Piresistopher Admit Provider DO Pranay Norberto Attending Provider MD Gita Azevedo Other Provider MD Yaniv Natarajan Other Provider Shraddha, DYE BOX OPERATOR Maxine L Attending Unavailable Shraddha, DYE BOX OPERATOR Maxine L Attending Unavailable Shraddha, DYE BOX OPERATOR Maxine L Attending Unavailable Shraddha, DYE BOX OPERATOR Maxine L Attending Unavailable Shraddha, DYE BOX OPERATOR Maxine L Attending Unavailable Shraddha, DYE BOX OPERATOR Maxine L Attending Unavailable COOKYaniv P Attending Unavailable Shraddha, DYE BOX OPERATOR Maxine L Attending Unavailable Shraddha, DYE BOX OPERATOR Maxine L Admitting Unavailable Shraddha, DYE BOX OPERATOR Maixne L Attending Unavailable Shraddha, DYE BOX OPERATOR Maxine L Admitting Unavailable COOKYaniv Attending Unavailable COOKYaniv Referring Unavailable Yaniv NATARAJAN Attending Unavailable Shraddha, DYE BOX OPERATOR Maxine L Attending Unavailable Shraddha, DYE BOX OPERATOR Mxaine L Attending Unavailable Ross, Baljit Attending Unavailable AMIR, Hasan Admitting Unavailable OJUKWU, Mbanefo Attending Unavailable OJONAHKWDesi, Mbanefo Admitting Unavailable STEFAN BEST Primary Care Physician [phone] KADE, Mbanefo Attending Unavailable VIVIANKWDesi, Mbanefo Admitting Unavailable MD Stefan Best Primary Care Provider MD Stefna Best Attending Provider SHAHRZAD MORALES Referring Unavailable STEFAN BEST Primary Care Unavailable SHAHRZAD MORALES Referring Unavailable STEFAN BEST Primary Care Unavailable Stefan Best MD Attending Provider Stefan Best MD Primary Care Provider Yaniv Natarajan MD Attending Provider [phone] Stefan Best MD Attending Provider [phone] Da Lozano MD Attending Provider Stefan Best MD Primary Care Provider Stefan Best MD Primary Care Provider Stefan Best MD Attending Provider Da Lozano MD Attending Provider Stefan Best MD Primary Care Provider [phone] Stefan Best MD Attending Provider [phone] Stefan Best MD Primary Care Provider Yaniv Natarajan MD Attending Provider [phone] Stefan Best MD Attending Provider [phone] Stefan Best MD Attending Provider Stefan Best [...] Other Provider Yamile MARLOW, Maxine Other Provider [phone] David Maher DO Other Provider Mason Rivera MD Other Provider Unavailable Vandana Urbina APRN Other Provider Elzbieta MARLOW, Serina Other Provider [phone] Nathan Gibson MD Other Provider Unavailable Los Ventura MD Other Provider David Patel DO Other Provider [phone] Flavio MARLOW, Jj Other Provider Liss MARLOW, Aladir Other Provider Coleman SKEINS YARN EXAMINER-C, Salud Ybarra Other Provider Crissy Smith APRN Other Provider Unavailable Dany Schroeder MD Other Provider Hernan Mai MD Other Provider Markel Ledbetter MD Other Provider Unavailable Chevy Espino DO Other Provider Vy Ortiz APRN Other Provider Juice Mackenzie DO Other Provider [phone] Rhona MARLOW, Nikolai Artis Other Provider Goldie Braun APRN Other Provider Jelena Inman APRN Other Provider [phone] Katiana Barrera MD Other Provider Unavailable Jagjit Atkinson MD Other Provider Roberto Jaime DO Other Provider Herman Bella MD Other Provider Nithya Alvarado MD Other Provider [phone] Francisca Escudero APRN Other Provider Unavailable Nishi Welsh MD Other Provider Earnest Noel MD Other Provider Mason Flanagan MD Other Provider Hill Marmolejo MD Other Provider Maryana Walker APRN Other Provider Susanne Rodriguez APRN Other Provider Lexi South RN Other Provider Unavailable Elle MARLOW, Farhat Soliman Attending Provider [phone] Elle MARLOW, Farhat Soliman Admit Provider Elle MARLOW, Farhat Soliman Other Provider Mindy De Jesus APRN Attending Provider David Maher DO Other Provider Unavailab Gardenia Lepe CMA Attending Provider Unavaila Stefan Momin MD Primary Care Provider Sage MARLOW, Stefan Conley Attending Provider Da Lozano MD Attending Provider Leroy Ashby MD Attending Provider Da Lozano MD Other Provider Earnest Ferrari MD Other Provider Joaquín ROB, Lily Other Provider Unavailable Brandon RN, Jacinda Other Provider Unavailable Paresh RN, Sherrie Other Provider Unavailable Joanna RN, Namrata Other Provider Unavailable Brandon RN, Selene Other Provider Unavailable Vega ROB, Kalyani Other Provider Unavailable Trace Alvarez MD Other Provider Clayton De La Cruz DO Other Provider Stewart Osorio MD Other Provider Norberto Pires DO Other Provider Mateo Schaeffer MD Other Provider [phone] Maxine Ovalle MD Other Provider [phone] David Maher DO Other Provider Unavailab demetrio Rivera MD, Mason Other Provider Unavailable Vandana Urbina APRN Other Provider Elzbieta MARLOW, Serina Other Provider Nathan Gibson MD Other Provider Unavailable Los Ventura MD Other Provider SaimajesúsDavid guerra DO Other Provider Jj Muniz MD Other Provider Aldair Leija MD Other Provider Coleman SKEINS YARN EXAMINER-C, Salud Ybarra Other Provider Crissy Smith APRN Other Provider Unavailable Dany Schroeder MD Other Provider Hernan Mai MD Other Provider Markel Ledbetter MD Other Provider Unavailable Chevy Espino DO Other Provider Vy Ortiz APRN Other Provider Juice Mackenzie DO Other Provider Rhona MARLOW, Nikolai Artis Other Provider Goldie Braun APRN Other Provider Jelena Inman APRN Other Provider Katiana Barrera MD Other Provider Unavailable Jagjit Atkinson MD Other Provider Roberto Jaime DO Other Provider Herman Bella MD Other Provider Nithya Alvarado MD Other Provider Francisca Escudero APRN Other Provider Unavailable Nishi Welsh MD Other Provider Earnest Noel MD Other Provider Mason Flanagan MD Other Provider Hill Marmolejo MD Other Provider Maryana Walker APRN Other Provider Bolzan-Sherry WINTER SPORTS MANAGER, Nicoletto Other Provider Akosua ROB, Lexi Other Provider Unavailable Elle MARLOW, Farhat Soliman Attending Provider [phone] Elle MARLOW, Farhat Soliman Admit Provider Elle MARLOW, Farhat Soliman Other Provider Neal BRAND, Mindy Attending Provider Gardenia Castellanos CMA Attending Provider Unavaila haydee Chapman MD, Chao Attending Provider Juice Mackenzie DO Admit Provider Janelle Crandall RN Other Provider Unavailable Montana Cobb DO Other Provider Charlotte Cordon MD Other Provider Saima Bae MD Other Provider [phone] Kade BRAND, Angela Liang Other Provider Kandi Villeda MD Other Provider Denise [facility], Elisa Baez Other Provider Mateo Schaeffer MD Attending Provider Stefan Best MD Primary Care Provider Stefan Best MD Attending Provider Robby Light DO Attending Provider Unavailable Primary Care Provider UnavailYaniv Melendez Attending Unavailable Yaniv NATARAJAN Referring Unavailable Orshelli Nicole X Attending Unavailable Yaniv NATARAJAN Attending Unavailable Yaniv NATARAJAN Attending Unavailable Yaniv NATARAJAN Attending Unavailable Stefan Best MD Primary Care Provider Da Lozano MD Attending Provider Trace Alvarez MD Attending Provider Stefan Best MD Attending Provider [phone] Dominick Razo DO Attending Provider Nishi Welsh MD Attending Provider Bollinger II, Da M Admitting Unavailabl e Stefan Best E Primary Care Unavailable Blake GUILLERMO, Da Artis Attending Unavailabl e Stefan Best Primary Care Unavailable Juice Mackenzie Admitting Unavailable Mateo Schaeffer Attending Unavailable Janelle Crandall Consulting Unavailable Janelle Crandall Consulting Unavailable Montana Cobb Consulting Unavailable Charlotte Cordon Consulting Unavailable Saima Bae Consulting Unavailable Angela Braun Consulting Unavailable Kandi Villeda Consulting Unavailable Elisa Walker Consulting Unavailable Blaise, Mohamad Admitting Unavailable Blaise, Mohamad Attending Unavailable Stefan Best Primary Care Unavailable Earnest Ferrari Consulting Unavailable Blake II, Da M Admitting Unavailabl e Blake II, Da Artis Attending UnavailLily Luong Consulting Unavailable Jacinda Taylor [...] Cee Consulting Unavailable Crissy Smith Consulting Unavailable Doamevirginiaor Dany E Consulting Unavailab Hernan Adkins Consulting Unavailable Almdudley Khaledave Consulting Unavailable Chevy Espino Consulting Unavailable Vy Ortiz Consulting Unavailable Juice Mackenzie Consulting Unavailable Nikolai Melgoza Consulting Unavailable Goldie Braun Consulting Unavailable Jelena Inman Consulting Unavailable Katiana Barrera Consulting Unavailable Jagjit Atkinson Consulting Unavailable Roberto Jaime Consulting Unavailable Herman Bella Consulting Unavailable Nithya Alvarado Consulting Unava luzable Francisca Escudero Consulting Unavailable Blaise, Mohamad Consulting Unavailable Earnest Noel Consulting Unavailable Panchito, Mason S Consulting Unavailable Hill Marmolejo Consulting Unavailable Maryana Walker Consulting Unavailable Bolzan-Sherry, Susanne Consulting Unavaila haydee South, Lexi Consulting Unavailable Stefan Best Primary Care Unavailable Farhat Almeida Admitting UnavailFarhat Saldana Attending Unavaila Lily Garcia Consulting Unavailable Jacinda Taylor Consulting Unavailable Sherrie [...] Braun Consulting Unavailable Jelena Inman Consulting Unavailable Alahmad, Alaa Consulting Unavailable Jagjit Atkinson Consulting Unavailable Addison Yadiego Consulting Unavailable Herman Bella Consulting Unavailable Nithya Alvarado Consulting Unava luzable Francisca Escudero Consulting Unavailable Nishi Welsh Consulting Unavailable Earnest Noel Consulting Unavailable Panchito, Mason S Consulting Unavailable Hill Marmolejo Consulting Unavailable Maryana Walker Consulting Unavailable Bolzan-Sherry, Nicolettmadeleine Consulting Unavaila haydee South, Lexi Consulting Unavailable Isiah Mata Attending Unavailable Adolfo, Isiah T Admitting Unavailable Best, Stefan E Primary Care Unavailable Robby Light Admitting Unavailable Robby Light Attending Unavailable Best, Stefan E Primary Care Unavailable Best, Stefan E Admitting Unavailable Best, Stefan E Attending Unavailable Bollinger II, Da M Admitting Unavailabl e Best, Stefan E Primary Care Unavailable Bollinger II, Da M Attending Unavailabl e Best, Stefan E Admitting Unavailable Best, Stefan E Attending Unavailable Best, Stefan E Primary Care Unavailable Best, Stefan E Primary Care Unavailable Bollinger II, Da M Admitting Unavailabl e Bollinger II, Da M Attending Unavailabl e Best, Stefan E Admitting Unavailable Best, Stefan E Attending Unavailable Best, Stefan E Primary Care Unavailable Best, Stefan E Primary Care Unavailable Bollinger II, Da M Admitting Unavailabl e Bollinger II, Da M Attending Unavailabl e Best, Stefan E Primary Care Unavailable Bollinger II, Da M Admitting Unavailabl e Bollinger II, Da M Attending Unavailabl e Best, Stefan E Primary Care Unavailable Yaniv Natarajan Attending Unavailable Yaniv Natarajan Admitting Unavailable Bollinger II, Da John Admitting Unavailabl e Best, Stefan E Primary Care Unavailable Bollinger II, Da M Attending Unavailabl e Best, Stefan E Primary Care Unavailable Yaniv Natarajan P Admitting Unavailable Yaniv Natarajan Attending Unavailable Sage, Stefan E Primary Care Unavailable Yaniv Natarajan P Admitting Unavailable CookYaniv Attending Unavailable Stefan Best MD E Primary Care Provider Allergies Allergy ClassificationReported Allergen(s)Allergy TypeDate of OnsetReaction(s) Facility (15 sources)Angiotensin Converting Enzyme (Williams) Inhibitors; Translations: [WILLIAMS Inhibitors]Allergy to drug (finding)36-22-9367Rcychkmdzrju, [facility] (20 sources)atorvastatin; Translations: [atorvastatin]Drug Bckyhkm78-98-8467 [facility]algiaFisher-[facility] (13 sources)Hmg-Coa Reductase Inhibitors (Statins); Translations: [Statins] Allergy to drug (finding)MyalgiaMP-[facility] 250 DO Work Phone: (5 sources)rosuvastatin; Translations: [rosuvastatin]Drug AllergyMyalgiaChildren's [place] 250 DO Work Phone: (20 sources)Spironolactone; Translations: [spironolactone]Drug Qnecpzf01-01-1925 OtherChildren[facility] [place] 250 DO Work Phone: (1 source)Iodine (And Iodine Containting Drugs)Drug allergy (disorder)[facility] (1 source)PravastatinDrug AllergyThe [facility] (2 sources)SimvastatinDrug AllergyThe [facility] (1 source)Sulfonamides (Antibiotic)Drug allergy (disorder)[facility] (6 sources)Adhesive TapeDrug allergyLake City VA Medical Center SocialDefender Other (11 sources)Pravastatin; Translations: [pravastatin]Drug AllergyUnknoMet[facility] (12 sources)Angiotensin-converting enzyme inhibitor agentDrug Yexwewf28-48-7932 [facility] (14 sources)HMG-CoA reductase inhibitor; Translations: [ABLXNAL-OOF-CDE REDUCTASE INHIBITORS]Drug Xkxymtr18-27-7888UknwpoePyyoprxvcpSt. Mary's Medical Center Work Phone: (20 sources)Adhesive Tape; Translations: [adhesive tape]Allergy to substance 38-40-0317asaaXiurmqokcUniversity Hospitals Elyria Medical Center (20 sources)blue dye; Translations: [blue dye]Allergy to ahbedkgee75-41-0592 [facility] CenterComment on above:dye used with xray causes patient to vomit (20 sources)semaglutide; Translations: [semaglutide]Allergy to substance 45-13-4895ikcdrg, vomitingUniversity Hospitals Elyria Medical Center Medications Current Medications MedicationDrug Class(es)DatesSig (Normalized)Sig (Original)allopurinol 100 mg oral tablet (20 sources)Xanthine Oxidase InhibitorStart: 30-05-8099Grmjn: 03-01-2025 End: 47-60-9089Klwzq: 05-14-2017 End: 79-22-1648pwpf 3 tablets by mouth in the morningallopurinoL (ZYLOPRIM) 100 mg tablet Take 3 tablets (300 mg total) by mouth in the morning. Activetake 1 tablet by mouth in the morningallopurinoL (ZYLOPRIM) 100 mg tablet Take 1 tablet (100 mg total) by mouth in the morning. Suspendedascorbic acid 1000 mg oral tablet (20 sources)Vitamin CStart: 47-38-5852Xodlk: 03-01-2024 End: 28-59-2603Vfxfc: 12-05-2023 End: 95-36-1674Vxynz: 09-11-2017 End: 60-71-6911Aigsr: 07-16-2017 End: 12-59-1700Atygo: 05-14-2017 End: 92-99-9464Ulokllf C 500 MG Orally Activeaspirin 81 mg delayed release oral tablet (20 sources)Platelet Aggregation Inhibitor, Nonsteroidal Anti-inflammatory Drug Start: 05-14-2017 End: 23-94-5303mevp 1 tablet by mouth every twenty-four hoursAspirin 81 MG 1 tablet Orally Once a day ActiveAspirin 81 MG Oral Tablet Delayed Release Quantity: 0 Refills: 0 Ordered: 19-Dec-2016 DO Activebumetanide 2 mg oral tablet (2 sources)Loop DiureticStart: 02-30-8901fqbj 1 tablet by mouth every other day bumetanide (BUMEX) 2 mg tablet Take 1 tablet (2 mg total) by mouth every other day. 05/21/2025 ActiveStart: 36-58-5816djqk 1 tablet by mouth twice daily bumetanide (BUMEX) 2 mg tablet Take 1 tablet (2 mg total) by mouth 2 (two) times a day. 05/18/2025 Activecarvedilol 3.125 mg oral tablet (20 sources)alpha-Adrenergic Miquel, beta-Adrenergic BlockerStart: 05-18-2025 take 1 tablet by mouth in the morning, then take 1 tablet by mouth at bedtime carvediloL (COREG) 3.125 mg tablet Take 1 tablet (3.125 mg total) by mouth in the morning and 1 tablet (3.125 mg total) before bedtime. 05/18/2025 Active Start: 07-22-2018 End: 65-39-3954Tlvwm: 06-23-2017 End: 63-92-9577bjww 1 tablet by mouth in the morning, then take 1 tablet by mouth at mealtimecarvediloL (COREG) 3.125 mg tablet Take 1 tablet (3.125 mg total) by mouth in the morning and 1 tablet (3.125 mg total) in the evening. Take with meals. Suspendedcephalexin 500 mg oral capsule (1 source)Cephalosporin AntibacterialStart: 02-29-2024 End: 28-95-0822pkek 1 capsule by mouth three times dailyKeflex 500 mg Cap 500 mg = 1 cap(s), Oral, TID, X 4 day(s), # 12 cap(s), Refills(s) 0, Pharmacy: [facility] 1155, 150, cm, 02/26/24 17:34:00 EDT, Height/Length Dosing, 76.4, kg, 02/26/24 17:34:00 EDT, Weight Dosing Start Date: 02/29/24 Stop Date: 03/04/24 Status: Orderedclopidogrel 75 mg oral tablet (20 sources)P2Y12 Platelet InhibitorStart: 05-14-2017 End: 87-44-6142XTJCQvjfki 321.5 mg in sodium chloride 0.9 % 50 mL IVPB (1 source)Start: 05-18-2025 End: 20-09-0251VYIOPjhrbd 321.5 mg in sodium chloride 0.9 % 50 mL IVPB Infuse 321.5 mg into a venous catheter every other day for 9 days. 05/18/2025 05/27/2025 ActiveDAPTOmycin 375 mg in sodium chloride 0.9 % 50 mL IVPB (1 source)Start: 05-19-2025 End: 55-36-6371XUTEOwmwob 375 mg in sodium chloride 0.9 % 50 mL IVPB Infuse 375 mg into a venous catheter every other day for 8 days. 05/19/2025 05/27/2025 ActivedimenhyDRINATE (6 sources)Dramamine Activedocusate sodium 50 mg / sennosides, mcc 8.6 mg oral tablet (10 sources)Start: 79-84-9592qxtx 2 tablets by mouth in the morningsennosides- docusate sodium (SENOKOT-S) 8.6-50 mg Take 2 tablets by mouth in the morning and 2 tablets before bedtime. 05/18/2025 ActiveStart: 03-09-2025 End: 32-15-6199Xnvbo: 03-09-2025 End: 58-34-0448yaaq 2 tablets by mouth once dailySennosides-Docusate Sodium (Senokot-S) 8.6-50 mg tablet Discontinued 2 TAB PO daily 60 30 March 09, 2025 12:00am April 04, 2025 10:32am DO NOT RECONCILE UNTIL DOS:03/21/2025 MED TO BEDertapenem 500 mg in sodium chloride 0.9 % 50 mL IVPB (2 sources)Start: 05-17-2025 End: 55-47-5187eupi 500 mg intravenously every twenty-four hoursertapenem 500 mg in sodium chloride 0.9 % 50 mL IVPB Infuse 500 mg into a venous catheter daily for10 days. 05/17/2025 05/27/2025 Activegabapentin 300 mg oral capsule (20 sources)Anti-epileptic AgentStart: 04-29-2024 End: 07-12-9663Mczwy: 02-02-2024 End: 99-57-6048Qqcfy: 07-03-2023 End: 06-47-9483Mtuge: 56-33-0607gybn 1 capsule by mouth once dailygabapentin (NEURONTIN) 300 mg capsule Indications: Chronic hypercapnia Take 1 capsule (300 mg total) by mouth nightly. 7 capsule 05/18/2025 ActiveStart: 65-98-8673qbtw 1 capsule by mouth twice dailyGabapentin 300 MG Oral Capsule TAKE ONE CAPSULE BY MOUTH TWICE A DAY Quantity: 60 Refills: 0 Ordered: 12-Dec-2021 DO Start : 15-Jun-2021 ActiveStart: 09-11-2017 End: 56-65-3497Mekhs: 09-11-2017 End: 82-96-1976wtqs 300 mg by mouth twice dailyGabapentin Discontinued 300 MG PO Twice daily September 11, 2017 1:00am February 02, 2024 9:04amStart: 06-25-2017 End: 34-12-8217Svdpd: 05-14-2017 End: 31-76-2772Kfsxx: 05-14-2017 End: 31-36-1086agfi 2 capsules by mouth twice dailyGabapentin 100 mg Capsule Discontinued 200 MG PO Twice daily May 14, 2017 12:00am June 25, 2017 11:51amStart: 05-14-2017 End: 10-22-8578sslh 3 capsules by mouth once dailyGabapentin 100 mg Capsule Discontinued 300 MG PO Daily May 14, 2017 12:00am June 25, 2017 11:51amStart: 05-14-2017 End: 79-61-1257aknu 200 mg by mouth twice dailyGabapentin Discontinued 200 MG PO Twice daily May 14, 2017 12:00am June 25, 2017 11:51amStart: 05-14-2017 End: 07-73-0750xqub 300 mg by mouth once dailyGabapentin Discontinued 300 MG PO Daily May 14, 2017 12:00am June 25, 2017 11:51amGabapentin 100 MG TABS TAKE 1 TABLET 3 TIMES DAILY. Quantity: 0 Refills: 0 Ordered: 19-Dec-2016 DO Activeinsulin aspart 100 units/mL injectable solution (1 source)Start: 19-49-9182ezvdgpi aspart 100 units/mL injectable solution Subcutaneous, Refills(s) 0 Start Date: 02/05/23 Status: OrderedInsulin Aspart U- 100 (Novolog Flexpen U-100 Insulin) 100 unit/mL (3 mL) insulin pen (13 sources)Start: 22-95-3861Cvhqpnf Aspart U-100 (Novolog Flexpen U-100 Insulin) 100 unit/mL (3 mL) insulin pen Active 1 sliding scale dose SUBCUT As Directed as needed for Type 2 diabetes October 14, 2024 10:46am Please contact the information source for Protocol details.Start: 10-14-2024 End: 37-32-5665Ibtzfjp Aspart U-100 (Novolog Flexpen U-100 Insulin) 100 unit/mL (3 mL) insulin pen Discontinued 0 UNIT SUBCUT As Directed as needed for Type 2 diabetes October 14, 2024 9:51am October 14, 2024 10:47am Please contact the information source for Protocol details.Start: 08-03-2024 End: 71-27-3979Mrguuel Aspart U-100 (Novolog Flexpen U-100 Insulin) 100 unit/mL (3 mL) insulin pen Discontinued 0 UNIT SUBCUT As Directed as needed August 03, 2024 12:07pm October 14, 2024 9:52am Please contact the information source for Protocol details.Start: 83-59-9799Cyjyphi Aspart U-100 (Novolog Flexpen U- 100 Insulin) 100 unit/mL (3 mL) insulin pen Active 0 UNIT SUBCUT As Directed as needed August 03, 2024 12:07pm Please contact the information source for Prot ocol details.Start: 87-26-8252Rbhqnet Aspart U-100 (Novolog Flexpen U-100 Insulin) 100 unit/mL (3 mL) insulin pen Active 0 UNIT SUBCUT As Directed as needed August 03, 2024 11:07am Please contact the information source for Prot ocol details.3 ml insulin degludec 100 unt/ml pen injector (2 sources)Insulin AnalogStart: 63-01-8358Ftdrqlu FlexTouch 100 units/mL subcutaneous solution 20 unit(s), SubCutaneous, As Directed, using sliding scale as needed, # 15 mL, Refills(s) 1, Pharmacy: [facility], 143, cm, 08/20/23 16:15:00 EST, Height/Length Dosing, 75.7, kg, 08/20/23 16:15:00 EST, Weight Dosing Start Date: 08/21/23 Status: Ordered3 ml insulin glargine 100 unt/ml pen injector (20 sources)Insulin AnalogStart: 76-87-5266kicwmzm glargine (LANTUS, SEMGLEE) 100 unit/mL (3 mL) insulin pen Inject 20 Units under the skin nightly. 05/18/2025 ActiveStart: 10-22-2024 End: 97-52-6714Kkady: 07-01-2024 End: 37-14-3995Ooudk: 48-02-3125Rzufqavu KwikPen 100 units/mL subcutaneous solution 50 unit(s), SubCutaneous, Daily, # 45 mL, Refills(s) 2, Pharmacy: [facility], 143, cm, 08/20/23 16:15:00 EST, Height/Length Dosing, 75.7, kg, 08/20/23 16:15:00 EST, Weight Dosing Start Date: 10/08/23 Status: OrderedStart: 07-06-0462Tdwpucuw KwikPen 100 units/mL subcutaneous solution 50 unit(s), SubCutaneous, Daily, # 15 mL, Refills(s) 2, Pharmacy: [facility], 140.6, cm, 02/10/23 11:29:00 EDT, Height/Length Dosing, 79.2, kg, 02/10/23 11:29:00 EDT, Weight Dosing Start Date: 02/10/23 Status: OrderedStart: 41-21-8000Ajvsswrf KwikPen 100 units/mL subcutaneous solution See Instructions, 50 units daily, # 15 mL, Refills(s) 0, Pharmacy: [facility] [id number] Start Date: 02/07/23 Status: OrderedStart: 13-58-6336Cptkyncy KwikPen 100 UNIT/ML Subcutaneous Solution Pen-injector INJECT 50 UNITS AT BEDTIME Quantity: 15 Refills: 0 Ordered: 12-Dec-2021 DO Start : 31-Jan-2021 ActiveStart: 09-11-2017 End: 52-40-4493Dkloy: 09-11-2017 End: 81-39-9198Iumms: 09-11-2017 End: 63-81-0915Xtqufgg Glargine (Basaglar Kwikpen U-100 Insulin) 100 unit/mL (3 mL) insulin pen Discontinued 50 UNIT SUBCUT Every evening October 22, 2024 12:00am December 03, 2024 12:24pmStart: 09-11-2017 End: 79-21-3051Upgxyzk Glargine (Basaglar Kwikpen U-100 Insulin) 100 unit/mL (3 mL) Insulin Pen Discontinued 42 UNIT SUBCUT Every evening September 11, 2017 1:00am January 12, 2024 4:21pmStart: 05-14-2017 End: 77-30-4960bxqllb 0.25 mL by subcutaneous injection once dailyinsulin glargine (LANTUS) 100 unit/mL injection Inject 0.25 mL (25 Units total) under the skin nightly. SuspendedBasaglar KwikPen 100 UNIT/ML Subcutaneous Active micafungin 100 mg in sodium chloride 0.9 % 100 mL IVPB W/ADAPTER (2 sources)Start: 05-17-2025 End: 51-90-6709whcn 100 mg intravenously every twenty-four hoursmicafungin 100 mg in sodium chloride 0.9 % 100 mL IVPB W/ADAPTER Infuse 100 mg into a venous catheter daily for 10 days. 05/17/2025 05/27/2025 Activepolyethylene glycol 3350 38292 mg powder for oral solution (10 sources)Osmotic LaxativeStart: 68-73-9098qwtv 17 g by mouth in the morning polyethylene glycol (GLYCOLAX) 17 gram packet Take 17 g by mouth in the morning and 17 g before bedtime. 05/20/2025 ActiveStart: 06-56-7735beeu 17 g by mouth in the morningpolyethylene glycol (GLYCOLAX) 17 gram packet Take 17 g by mouth in the morning and 17 g before bedtime. 05/18/2025 ActiveStart: 03-09-2025 End: 90-41-1118pbxvbpkmk chloride 10 meq extended release oral tablet (20 sources)Start: 03-03-2025 End: 32-74-9079Dumna: 09-12-2023 End: 03-17-9038Csueq: 72-26-4093hxjd 1 tablet by mouth once dailypotassium chloride 10 mEq ER Tab 10 mEq = 1 tab(s), Oral, Daily, Oral, # 30 tab(s), Refills(s) 5, Pharmacy: [facility] 1155, 143, cm, 08/20/23 16:15:00 EST, Height/Length Dosing, 75.7, kg, 08/20/23 16:15:00 EST, Weight Dosing Start Date: 09/03/23 Status: OrderedStart: 07-03-2023 End: 90-91-4538ogwbtushb chloride CR 10 mEq ER tablet 1 tablet (10 mEq) once daily. 07/03/2023 08/11/2024 Discontinued (Therapy completed)Start: 02-05-2023 potassium chloride 10 mEq ER Tab Oral, Refills(s) 0 Start Date: 02/05/23 Status: OrderedStart: 75-59-0516Ixejijagn Chloride ER 10 MEQ Oral Tablet Extended Release Quantity: 30 Refills: 0 Ordered: 12-Dec-2021 DO Start : 12-Dec-2021 Active Start: 05-14-2017 End: 53-88-6086jhnxhgyye chloride (K-TAB,KLOR-CON) 10 MEQ CR tablet Take 1 tablet (10 mEq total) by mouth in the morning. Activetake 1 tablet by mouth once dailyPotassium Chloride ER 20 MEQ Oral Tablet Extended Release Take 1 tablet daily Quantity: 0 Refills: 0 Ordered: 19-Dec-2016 DO Activerosuvastatin calcium 10 mg oral tablet (20 sources)HMG-CoA Reductase InhibitorStart: 96-64-0425Mpogg: 03-03-2025 End: 20-89-8874Lasmp: 03-01-2025 End: 95-81-0302Teruz: 06-23-2017 End: 20-98-2603jjet 1 tablet by mouth at bedtimerosuvastatin (CRESTOR) 10 mg tablet Take 1 tablet (10 mg total) by mouth before bedtime. Activetake 1 tablet by mouth every twenty-four hoursRosuvastatin Calcium 20 MG 1 tablet Orally Once a day Dezvqq874 ml sodium chloride 9 mg/ml prefilled syringe (2 sources)Start: 05-19-2025 End: 14-09-7274qebgbq chloride 0.9 % injection Infuse 10 mL into a venous catheter as needed for line care for up to 10 days. Flush line with 10 mL normal saline before line use, and after line use. May also flush line as needed. 05/19/2025 05/29/2025 ActiveStart: 05-18-2025 End: 19-68-4000ymmtcj chloride 0.9 % injection Infuse 10 mL into a venous catheter as needed for line care for up to 10 days. Flush line with 10 mL normal saline before line use, and after line use. May also flush line as needed. Infuse heparin lock 1-5ml (10-50units total) into line after flush and line use. 05/18/2025 05/28/2025 Activespironolactone 25 mg oral tablet (20 sources)Aldosterone AntagonistStart: 50-39-7087Cperu: 06-23-2017 End: 09-87-8041xjrogpjcl 40 mg oral tablet (3 sources)Angiotensin 2 Receptor BlockerStart: 61-50-7692Vddxbst C 500 MG (5 sources)Vitamin C 500 MG Orally ActiveVitamin C 500 mg oral tablet, chewable (1 source)Start: 96-35-1434oitp 1 tablet by mouth once dailyVitamin C 500 mg oral tablet, chewable 500 mg = 1 tab(s), Chewed, Daily, Refills(s) 0 Start Date: 02/27/24 Status: OrderedVitamin D Oral (1 source)Start: 80-44-5099Qwzgnil D Oral 50,000 International_Unit, Oral, Daily, Refills(s) 0 Start Date: 02/27/24 Status: OrderedVitamin D-3 5000 UNIT (6 sources)take 1 tablet by mouth once dailyVitamin D-3 5000 UNIT 1 tablet Orally Once a day Active Completed/Discontinued Medications MedicationDrug Class(es)DatesSig (Normalized)Sig (Original)acetaminophen 500 mg oral tablet (20 sources)Start: 03-03-2025 End: 79-93-1188Mpwyz: 03-03-2025 End: 17-88-9982aniu 2 tablets by mouth every six hours as needed for pain Acetaminophen (Acetaminophen Extra Strength) 500 mg tablet Discontinued 1000 MG PO Every 6 hours asneeded for pain March 03, 2025 12:00am March 21, 2025 7:32amStart: 01-12-2024 End: 05-35-7773Lynfd: 56-98-7926mckp 1300 mg by mouth every twelve hours Acetaminophen Active 1300 MG PO Every 12 hours January 12, 2024 12:00amStart: 47-42-9683Lqenpaz 650 mg, Oral, Refills(s) 0 Start Date: 08/20/23 Status: Ordered Start: 07-20-2018 End: 17-11-1295Zhpek: 07-16-2017 End: 98-18-5298Xbxvx: 07-16-2017 End: 91-58-2014Byhmhlgracbpr (Tylenol Arthritis Pain) 650 mg Tablet Extended Release Discontinued 1300 MG PO Everyevening as needed for Pain July 16, 2017 1:00am September 11, 2017 8:44amtake 1 tablet by mouth every eight hours as needed for painacetaminophen (TYLENOL ARTHRITIS) 650 mg 8 hr tablet Take 1 tablet (650 mg total) by mouth every 8 (eight) hours as needed for pain. Active take 1 tablet by mouth every four to six hours as neededAcetaminophen 500 MG Oral Tablet TAKE 1 TABLET EVERY 4 TO 6 HOURS NEEDED. Quantity: 0 Refills: 0 Ordered: 02-Nov-2021 DO Activeacetaminophen 325 mg / oxyCODONE hydrochloride 5 mg oral tablet (5 sources)Opioid Agonisttake 1 tablet by mouth every six hours as needed for painPercocet 5-325 MG Oral Tablet TAKE 1 TABLET EVERY 6 HOURS NEEDED FOR PAIN. Quantity: 0 Refills: 0 Ordered: 19-Dec-2016 DO Activealbuterol 0.833 mg/ml / ipratropium bromide 0.167 mg/ml inhalation solution (5 sources)Anticholinergic, beta2-Adrenergic AgonistStart: 04-04-2025 End: 53-52-3407Caavg: 04-04-2025 End: 88-05-2821shwg 1 mL by inhalation four times dailyIpratropium-Albuterol 0.5 mg-3 mg(2.5 mg base)/3 mL Solution For Nebulization Discontinued 3 ML INHA LATION Four times daily - Respiratory 90 April 04, 2025 12:00am April 06, 2025 3:31pmatorvastatin 80 mg oral tablet (20 sources)HMG-CoA Reductase InhibitorStart: 05-14-2017 End: 84-75-0122sapzfevukx 500 mg oral capsule (8 sources)Cephalosporin AntibacterialStart: 03-09-2025 End: 81-89-0566inlhlhpamudfygt 0.125 mg oral capsule (20 sources)Vitamin DStart: 01-12-2024 End: 26-86-4746Hmnmu: 01-12-2024 End: 52-41-1230Aluom: 36-02-6565regd 1 tablet by mouth every other day at mealtimecholecalciferol (Vitamin D-3) 5,000 Units tablet Take 1 tablet (5,000 Units) by mouth every other day. with food 2023 ActiveStart: 2023 take 1 tablet by mouth once daily at mealtimecholecalciferol (Vitamin D-3) 5,000 Units tablet Take 1 tablet (5,000 Units) by mouth once daily. with food 0 2023 ActiveStart: 09-11-2017 End: 41-61-2808Pdfyn: 09-11-2017 End: 24-28-4392edyc 1 capsule by mouth once dailyCholecalciferol (Vitamin D3) (Vitamin D3) 1,000 unit Capsule Discontinued 1000 UNIT PO Daily September 11, 2017 1:00am January 12, 2024 4:16pmStart: 07-16-2017 End: 87-06-2116Nbrni: 07-16-2017 End: 54-79-3877Lhobxsbxcfpjqgb (Vitamin D3) (Vitamin D3) 5,000 unit Tablet Discontinued 5000 MG PO Daily July 16, 2017 1:00am September 11, 2017 8:54am Start: 05-14-2017 End: 54-35-8693Szoop: 05-14-2017 End: 85-22-5146uato 1 capsule by mouth once dailyCholecalciferol (Vitamin D3) (Vitamin D3) 1,000 unit Capsule Discontinued 1000 UNIT PO Daily 0 June 25, 2017 11:05am July 16, 2017 9:38amtake 1 tablet by mouth in the morning cholecalciferol, vitamin D3, 5,000 units tablet Take 1 tablet (5,000 Units total) by mouth in the morning. Activeciprofloxacin 250 mg oral tablet (20 sources)Quinolone AntimicrobialStart: 11-15-2024 End: 90-48-9839Qgfzw: 2024 End: 00-43-2702Vipnt: 05-25-2024 End: 55-60-9642Gtbyq: 04-07-2024 End: 66-10-8127xaezqarr sodium 100 mg oral capsule (20 sources)Start: 41-57-3211Xzuaan Oral, Daily, Refills(s) 0 Start Date: 08/20/23 Status: OrderedStart: 06-23-2017 End: 96-57-3379Wlfuk: 06-23-2017 End: 65-60-7327nwev 1 capsule by mouth twice daily as needed for constipation Docusate Sodium (Colace) 100 mg Capsule Discontinued 100 MG PO Twice daily as needed for Constipation June 23, 2017 1:00am January 12, 2024 4:21pmtake 1 capsule by mouth once dailydocusate sodium (COLACE) 50 mg capsule Take 1 capsule (50 mg total) by mouth nightly. Activetake 1 tablet by mouth once dailyDocusate Sodium 100 MG Oral Tablet TAKE 1 TABLET DAILY DIRECTED. Quantity: 0 Refills: 0 Ordered:19-Dec-2016 DO Activeferrous sulfate 325 mg oral tablet (20 sources)Start: 01-26-2025 End: 12-51-0313Sjcjw: 06-24-2024 End: 21-21-7087Ugnvp: 06-24-2024 End: 32-55-1691dbqh 1 tablet by mouth every other dayFerrous Sulfate (Ferosul) 325 mg (65 mg iron) tablet Discontinued 325 MG PO .Every other day June 24, 2024 1:00am October 22, 2024 7:04amStart: 78-71-6263jwuj 1 tablet by mouth every other dayferrous sulfate 325 (65 Fe) MG EC tablet Take 1 tablet by mouth every other day. 02/27/2024 ActiveStart: 01-25-2024 End: 27-63-3225iboz 1 tablet by mouth every other dayFerrous Sulfate (Iron (Ferrous Sulfate)) 325 mg (65 mg iron) tablet Discontinued 325 MG PO every other day March 03, 2024 2:46pm 2024 8:26amStart: 12-05-2023 End: 00-77-0438ssddfxpvait 150 mg oral tablet (20 sources)Azole AntifungalStart: 02-18-2025 End: 10-56-7601Pbppx: 01-13-2025 End: 74-55-1903nplsfnhxxt 40 mg oral tablet (20 sources)Loop DiureticStart: 10-11-2021 End: 50-68-6232Rmqot: 05-14-2017 End: 20-63-1464acak 1 tablet by mouth twice dailyFurosemide 40 MG Oral Tablet Take 1 tablet twice daily Quantity: 0 Refills: 0 Ordered: 19-Dec-2016 DO Vntpho93 hr guaiFENesin 600 mg extended release oral tablet (5 sources)Start: 04-04-2025 End: 64-29-2870Cgalgek Aspart U-100 (Novolog Flexpen U-100 Insulin) 100 unit/mL insulin pen (17 sources)Start: 07-16-2017 End: 22-67-1732Eouavws Aspart U-100 (Novolog Flexpen U-100 Insulin) 100 unit/mL insulin pen Discontinued 0 UNIT SUBCUT As Directed July 16, 2017 9:40am August 03, 2024 12:08pm Please contact the information source for Protocol details.Start: 07-16-2017 End: 27-80-6034Uaqrrne Aspart U-100 (Novolog Flexpen U-100 Insulin) 100 unit/mL insulin pen Discontinued 0 UNIT SUBCUT As Directed July 16, 2017 8:40am August 03, 2024 11:08am Please contact the information source for Protocol details.Start: 52-57-8475Wphvbpp Aspart U-100 (Novolog Flexpen U-100 Insulin) 100 unit/mL insulin pen Active 0 UNIT SUBCUT As Directed July 16, 2017 8:40am Please contact the information source for Protocol details.Start: 01-71-7679Arbvuwr Aspart U-100 (Novolog Flexpen U-100 Insulin) 100 unit/mL insulin pen Active 0 UNIT SUBCUT As Directed July 16, 2017 9:40am3 ml insulin aspart, human 100 unt/ml pen injector (20 sources)Insulin AnalogStart: 10-14-2024 End: 87-56-5575Pbxlejo Aspart U-100 (Novolog Flexpen U-100 Insulin) 100 unit/mL (3 mL) insulin pen Discontinued 1 sliding scale dose SUBCUT As Directed as needed for Type 2 diabetes Protocol: *NOT APPROPRIATE TO USE SCALE IF LESS THAN 3 HOURS SINCE PREVIOUS MEAL AND SCALE DOSE* Condition: D ose/Route: Instructions: Condition: Fingerstick Blood Glucose Dose/Route: Insulin Units Condition: mg/dl Dose/Route: 1 unit Condition: mg/dl Dose/Route: 2 units Condition: mg/dl Dose/Route: 3 units Condition: mg/dl Dose/Route: 4 units Condition: mg/dl Dose/Route: 5 units Condition: mg/dl Dose/Route: 6 units Condition: mg/dl Dose/Route: 7 units Condition: mg/dl Dose/Route: 8 units Condition: mg/dl Dose/Route: 9 units Condition: mg/dl Dose/Route: 10units Dose/Route: 11 units Condition: Greater than or = 400 mg/dl Instructions: Call Provider Condition: Custom Scale 1:___ Instructions: GIVE 1 UNIT OF ASPART FOR EVERY ___MG GLUCOSE Instructions: STARTING AT 150MG AT BG CHECKS October 14, 2024 10:46am April 04, 2025 10:32am Please contactthe information source for Protocol details.Start: 64-97-4610uzoobax aspart 100 units/mL injectable solution See Instructions, 20 unit(s) subcutaneous as needed. follow sliding scale, # 15 mL, Refills(s) 3, Pharmacy: [facility]5, 143, cm, 08/20/23 16:15:00 EST, Height/Length Dosing, 75.7, kg, 08/20/23 16:15:00 EST, Weight Dosing Start Date: 09/03/23 Status: OrderedStart: 83-50-8909FkozUWO Flexpen U-100 Insulin 100 unit/mL (3 mL) pen INJECT 20 UNITS VIA SUBCUTANEOUS ROUTE NEEDED PER SLIDING SCALE 02/11/2023 ActiveStart: 05-14-2017 End: 02-95-8356Xaxkm: 05-14-2017 End: 30-65-8136Jsgzxix Aspart U-100 (Novolog Flexpen U-100 Insulin) 100 unit/mL (3 mL) insulin pen Discontinued 0 UNIT SUBCUT As Directed as needed Protocol: *NOT APPROPRIATE TO USE SCALE IF LESS THAN 3 HOURS SINCEPREVIOUS MEAL AND SCALE DOSE* Condition: Dose/Route: Instructions: [...] Please contact the information source for Protocol details.inject 0.03-0.05 mL by subcutaneous injection four times daily at bedtimeinsulin aspart U-100 (NovoLOG) 100 unit/mL injection Inject 0.03-0.05 mL (3-5 Units total) under the skin 4 (four) times daily after meals and at bedtime. SuspendedNovoLOG ActiveInsulin Lispro (5 sources)Insulin AnalogStart: 02-29-2024 End: 62-23-1176Lpasbtg Lispro Sliding Scale 0-10 Unit(s), Injection-Insulin, SubCutaneous, Start date 02/29/24 11:30:00 AM EDT Start Date: 02/29/24 Stop Date: 02/29/24 Status: CompletedStart: 02-29-2024 End: 45-63-3673Vgrhoqy Lispro Sliding Scale 0-10 Unit(s), Injection-Insulin, SubCutaneous, Start date 02/29/24 7:30:00 AM EDT Start Date: 02/29/24 Stop Date: 02/29/24 Status: CompletedStart: 02-28-2024 End: 94-66-3960Gxmfjzz Lispro Sliding Scale 0-10 Unit(s), Injection-Insulin, SubCutaneous, Start date 02/28/24 4:30:00 PM EDT Start Date: 02/28/24 Stop Date: 02/28/24 Status: CompletedStart: 78-64-8958dxorry 20 [IU] by subcutaneous injection once as neededHumaLOG 100 units/mL injectable solution 20 unit(s), SubCutaneous, As Directed, as needed per sliding scale, # 15 mL, Refills(s) 2, Pharmacy: [facility] 1155, 143, cm, 08/20/23 16:15:00 EST, Height/Length Dosing, 75.7, kg, 08/20/23 16:15:00 EST, Weight Dosing Start Date: 08/20/23 Status: Orderedlisinopril 5 mg oral tablet (20 sources)Angiotensin Converting Enzyme InhibitorStart: 08-03-2024 End: 64-96-4677Iledg: 05-14-2017 End: 11-01-8832jlpy 1 tablet by mouth every twenty-four hoursLisinopril 5 MG 1 tablet Orally Once a day Activelosartan potassium 25 mg oral tablet (20 sources)Angiotensin 2 Receptor BlockerStart: 07-20-2018 End: 08-40-7221pwwjqhlwnu tartrate 25 mg oral tablet (20 sources)beta-Adrenergic BlockerStart: 05-14-2017 End: 06-23-2017 End: 80-58-1861sfzf 1 tablet by mouth every twelve hoursmetoprolol tartrate (Lopressor) 25 mg tablet 1 tablet (25 mg) every 12 hours. 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 Quantity: 0 Refills: 0 Ordered: 19-Dec-2016 DO Activenitroglycerin 0.4 mg sublingual tablet (20 sources)Nitrate VasodilatorStart: 06-23-2017 End: 33-31-4870Itcxl: 06-23-2017 End: 35-71-2673Humhrwwboxxtj (Nitrostat) 0.4 mg Tablet, Sublingual Discontinued 0.4 MG SUBLINGUAL Q5M as needed for Chest Pain June 23, 2017 1:00am September 09, 2023 4:27pmondansetron 4 mg oral tablet (20 sources)Serotonin-3 Receptor AntagonistStart: 03-09-2025 End: 65-13-4708Yrvke: 12-05-2023 End: hr oxybutynin chloride 15 mg extended release oral tablet (20 sources)Cholinergic Muscarinic AntagonistStart: 07-27-2024 End: 98-69-9740Fnhrx: 01-12-2024 End: 34-30-9466Fwxnj: 01-01-2024 End: 24-62-1956fnnq 1 tablet by mouth once dailyOxybutynin Chloride Discontinued 0 .ROUTE .COMPLEX January 01, 2024 8:42am January 12, 2024 4:21pm TAKE ONE TABLET BY MOUTH DAILYStart: 12-11-2023 End: 29-40-2844Nrkrj: 12-11-2023 End: 70-15-1795Okrfq: 09-03-2023 End: 23-04-3787Dejyt: 07-03-2023 End: 37-77-8592Dlewm: 32-96-4815zgha 1 tablet by mouth once dailyoxybutynin 10 mg ER Tab 10 mg = 1 tab(s), Oral, Daily, # 90 tab(s), Refills(s) 0, Pharmacy: [facility] 1155, 140.6, cm, 02/10/23 11:29:00 EDT, Height/Length Dosing, 79.2, kg, 02/10/23 11:29:00 EDT, Weight Dosing Start Date: 02/10/23 Status: OrderedStart: 75-99-1297etnlsysvni 5 mg ER Tab 30 tab(s), Refills(s) 0 Start Date: 02/05/23 Status: OrderedStart: 01-72-6792ccex 1 tablet by mouth every twenty-four hours in the morningOxybutynin Chloride ER 5 MG Oral Tablet Extended Release 24 Hour TAKE ONE TABLET BY MOUTH IN THE MORNING Quantity: 37 Refills: 0 Ordered: 15-Oct-2021 DO Start : 15-Oct-2021 Activetake 1 tablet by mouth every twelve hoursoxyBUTYnin Chloride 5 MG 1 tablet Orally Twice a day ActiveoxyCODONE hydrochloride 5 mg oral tablet (8 sources)Opioid AgonistStart: 03-09-2025 End: 03-22-8616xiwkufeaxiet 20 mg delayed release oral tablet (17 sources)Proton Pump InhibitorStart: 03-09-2025 End: 86-44-1700xirluzQYBU 10 mg oral tablet (8 sources)Start: 03-09-2025 End: 80-11-5640vctyrpkoyns (Lexiscan) injection 0.4 mg (2 sources)Start: 10-14-2023 End: 32-31-4850yuhmalnoxli (Lexiscan) injection 0.4 mgsulfamethoxazole 800 mg / trimethoprim 160 mg oral tablet (20 sources)Dihydrofolate Reductase Inhibitor Antibacterial, Sulfonamide AntimicrobialStart: 10-23-2023 End: 60-99-5762Lusqp: 10-23-2023 End: 49-05-3116nhdy 1 tablet by mouth twice dailySulfamethoxazole-Trimethoprim 800-160 mg tablet Discontinued 1 TAB PO Twice daily October 23, 2023 12:00am November 27, 2023 2:06pmTc-99m tetrofosmin (Myoview) injection 10 millicurie (2 sources)Start: 10-14-2023 End: 45-74-5811Fq-99m tetrofosmin (Myoview) injection 10 millicurieTc-99m tetrofosmin (Myoview) injection 30 millicurie (2 sources)Start: 10-14-2023 End: 06-29-5759Oy-99m tetrofosmin (Myoview) injection 30 millicurietraMADol hydrochloride 50 mg oral tablet (20 sources)Opioid AgonistStart: 03-09-2025 End: 34-56-5970Oggfb: 07-24-2018 End: 94-29-3685Ljppsxy B Complex (17 sources)Start: 05-14-2017 End: 81-57-0791giei 1 tablet by mouth once dailyVitamin B Complex Discontinued 1 TAB PO Daily May 14, 2017 12:00am July 20, 2018 7:44amVitamin B Complex - Orally ActiveVitamin B Complex Tablet (20 sources)Start: 05-14-2017 End: 31-05-5958avfm 1 tablet by mouth once dailyVitamin B Complex Tablet Discontinued 1 TAB PO Daily May 14, 2017 12:00am July 20, 2018 7:44am Start: 05-14-2017 End: 30-09-1164efbv 1 tablet by mouth once dailyVitamin B Complex Tablet Discontinued 1 TAB PO Daily May 13, 2017 11:00pm July 20, 2018 6:44am (3 sources)Start: 05-14-2017 End: 07-20-2018 Problems Active Problems Problem ClassificationProblemDateDocumented DateEpisodic/ChronicAbdominal pain (2 sources)Flank otxw48-67-7276SynbvihkHoxnk and unspecified renal failure (20 sources)Acute renal failure syndrome; Translations: [Acute kidney failure, unspecified]Onset: 799243-23-6464CurzkmfqFotneqqygsfvdy/social admission (11 sources)Impaired mobility; Translations: [Other reduced mobility]Onset: 053458-64-0987MbpmfbbuRnqral and peripheral arterial embolism or thrombosis (6 sources)Finding of aorta; Translations: [Embolism and thrombosis of unspecified parts of aorta]ChronicChronic kidney disease (20 sources)Chronic kidney disease, unspecified; Translations: [Chronic kidney disease, stage 4 (severe)]Onset: 511339-59-3033CxckzveZyietnf on above: added per 05/20/2023 query response.Chronic kidney disease (2 sources)Chronic kidney disease; Translations: [Chronic kidney disease, stage 3b (Multi)]Onset: 11-17-0453Iektdxv ulcer of skin (1 source)Pressure ulcer of sacral region; Translations: [Pressure ulcer of sacral region, stage 1]Onset: 67-76-7072RftthoxLvbjmqoutx heart failure; nonhypertensive (20 sources)Heart failure; Translations: [Heart failure, unspecified]Onset: 399751-61-1421TuvtrzzOxxldftlfu heart failure; nonhypertensive (1 source)Congestive heart failure; nonhypertensiveOnset: 55-40-1487Dvvibydd atherosclerosis and other heart disease (20 sources)Chronic ischemic heart disease, unspecified; Translations: [Atherosclerotic heart disease of nativecoronary artery without angina pectoris] Onset: 09-04-2017 Resolved: 091186-87-7003VbnpgnhIregypzgcm and other anemia (1 source)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c kidney disease; Translations: [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c kidney disease]Onset: 17-43-2499NeoypmaQqgmxkmcof and other anemia (20 sources)Anemia; Translations: [Anemia, unspecified]95-07-9651Cfsnlqbf Deficiency and other anemia (4 sources)Anemia, unspecified; Translations: [Anemia, unspecified]12-11-2023 EpisodicDiabetes mellitus with complications (20 sources)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; Translations: [Type 1 diabetes mellitus with diabetic chronic kidney disease] Onset: 22-54-3093XtofrfiTdaqurof mellitus without complication (20 sources)Type 2 diabetes mellitus; Translations: [Diabetes mellitus without mention of complication, type IIor unspecified type, not stated as uncontrolled] Onset: 310083-00-8912QookzqmZymqrlf on above:linked DM with HLD per OP CDI policy.Diabetes mellitus without complication (14 sources)Steroid-induced hyperglycemia; Translations: [Hyperglycemia, unspecified]Onset: 379454-93-0783XidsiixlYuohlfao mellitus without complication (1 source)Diabetes mellitus without complicationOnset: 20-79-8636Jdigdwlrj of lipid metabolism (20 sources)Dyslipidemia; Translations: [Other and unspecified hyperlipidemia] Onset: 07-08-2023 Resolved: 725953-21-5547SjsxrdjH Codes: Adverse effects of medical drugs (1 source)Adverse effect of glucocorticoids and synthetic analogues, initial encounter; Translations: [Adverse effect of glucocorticoids and synthetic analogues, initial encounter]Onset: 29-15-5005EifttbzmGafzavofv hypertension (20 sources)Hypertensive disorder; Translations: [Unspecified essential hypertension]Onset: 954515-53-2456SxhjkvyHsctsxyxw hypertension (1 source)Essential hypertensionOnset: 88-79-5551Jvaxsiqzrdyfo symptoms and ill- defined conditions (3 sources)Urinary ncayjzammhqn29-94-8435CwysqlnHqfzyxargxvks symptoms and ill- defined conditions (20 sources)Urinary tract obstruction; Translations: [Obstructive and reflux uropathy, unspecified]39-77-1070LshcxvuhDsaa and other crystal arthropathies (20 sources)Gout; Translations: [Gout, unspecified]Onset: ChronicHeart valve disorders (20 sources)Mitral valve regurgitation; Translations: [Mitral valve disorders] Onset: 704192-27-9080AgjokkcWvxadqinkqsj with complications and secondary hypertension (20 sources)Chronic kidney disease due to hypertension; Translations: [Hypertensive chronic kidney disease withstage 1 through stage 4 chronic kidney disease, or unspecified chronic kidney disease]Onset: 080555-94-8836 ChronicMalaise and fatigue (20 sources)Asthenia; Translations: [Weakness]Onset: 07-65-2435Nsocvzam Nutritional deficiencies (3 sources)Vitamin D ijfarxjxgj62-74-8133KgiwcwoZpthmbaky or stenosis of precerebral arteries (20 sources)Right carotid artery occlusion; Translations: [Occlusion and stenosis of carotid artery without mention of cerebral infarction]Onset: 246342-88-9258HyxjcxhOalpdquayxwmln (20 sources)Osteoarthritis of left hip joint; Translations: [Unilateral primary osteoarthritis, left hip]Onset: 61-07-5723WewpcdwUdrcmldkbimm (20 sources)Osteoporosis; Translations: [Age-related osteoporosis without current pathological fracture]89-56-2720PgtaesrZjgkx aftercare (6 sources)Patient encounter status; Translations: [Aftercare following joint replacement surgery]07-59-2676GiuuylpKvxyl aftercare (20 sources)Long-term current use of drug therapy; Translations: [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]Onset: 865361-69-5189NycyrldnPvyqj aftercare (3 sources)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; Translations: [senior care (current) use of insulin (Multi)]Onset: 32-26-1511OeobebmhLmfea circulatory disease (20 sources)Carotid bruit; Translations: [Other symptoms involving cardiovascular system]Onset: 173625-81-4256KgzczhjiGdikl circulatory disease (1 source)H/O: heart failure; Translations: [Personal history of other diseases of the circulatory system]95-05-5240UxvqtmkkRryad circulatory disease (1 source)Personal history of other diseases of the circulatory system; Translations: [Personal history of other diseases of circulatory system] 33-29-1430PodcjaikPdoal connective tissue disease (20 sources)History of total hip arthroplasty; Translations: [Presence of left artificial hip joint]83-34-9219CytwrmjHqejl connective tissue disease (1 source)Presence of left artificial hip joint; Translations: [Presence of left artificial hip joint]Onset: 91-08-8645RlhexcwMsbkd diseases of bladder and urethra (20 sources)Overactive bladder; Translations: [Overactive bladder]11-27-2023 ChronicOther diseases of bladder and urethra (9 sources)Overactive bladder; Translations: [Hypertonicity of bladder] 16-87-0055CuytkdiXxaqh diseases of kidney and ureters (20 sources)Secondary hyperparathyroidism; Translations: [Secondary hyperparathyroidism of renal origin]27-42-4733BftmqxfCjdnj diseases of kidney and ureters (19 sources)Secondary hyperparathyroidism of renal origin; Translations: [Secondary hyperparathyroidism (of renal origin)]Onset: ChronicOther diseases of kidney and ureters (4 sources)Hydronephrosis; Translations: [Unspecified hydronephrosis]Onset: 469014-72-5022EgrfbqxpMjhzt diseases of kidney and ureters (20 sources)Hydroureter; Translations: [Hydroureter]56-83-0539TqcqbigfVfbma diseases of kidney and ureters (20 sources)Bilateral hydronephrosis ; Translations: [Unspecified hydronephrosis]67-71-4592EnmjbdkhQwtkk diseases of kidney and ureters (7 sources)Unspecified hydronephrosis; Translations: [Hydronephrosis]01-25-2024 EpisodicOther diseases of kidney and ureters (6 sources)Hydroureter; Translations: [Hydroureter]09-05-3403EjbtpfwlLbxxm diseases of kidney and ureters (3 sources)Retroperitoneal fibrosis; Translations: [Retroperitoneal fibrosis] Onset: 09-99-6973UzqpzzauKmnug endocrine disorders (1 source)Hypoglycemia; Translations: [Hypoglycemia, unspecified]Onset: 11-68-2557VzvamigBrxwr injuries and conditions due to external causes (3 sources)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; Translations: [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, initial encounter]Onset: 90-27-1713QknjlcrkUyeko nervous system disorders (20 sources)Chronic pain; Translations: [Other chronic pain]43-59-0658Qyrdloy Other nervous system disorders (1 source)Other chronic painChronicOther nervous system disorders (1 source)Metabolic encephalopathy; Translations: [Metabolic encephalopathy] Onset: 81-44-7956OeqiuftHpgpr non-traumatic joint disorders (2 sources)Pain in left hip; Translations: [Pain in left hip]Onset: 03-09-2025 EpisodicOther non-traumatic joint disorders (20 sources)Hip pain; Translations: [Pain in left hip]33-22-8205DxjyiadzTfukl nutritional; endocrine; and metabolic disorders (16 sources)Body mass index 30+ - obesity; Translations: [Body Mass Index 35.0- 35.9, adult]Onset: 468172-11-8146ZbwsjhuFgovb nutritional; endocrine; and metabolic disorders (2 sources)Obese class II; Translations: [Obesity, unspecified]ChronicOther nutritional; endocrine; and metabolic disorders (8 sources)Obesity; Translations: [Obesity, unspecified]ChronicOther nutritional; endocrine; and metabolic disorders (2 sources)Severe iqzpjda52-98-3024WkcoykdKnedclr on above:added per 05/20/2023 query response.Other nutritional; endocrine; and metabolic disorders (1 source)Morbid obesity; Translations: [Morbid (severe) obesity due to excess calories]Onset: 96-99-3552CsjzeueWfrlw nutritional; endocrine; and metabolic disorders (20 sources)Obesity caused by energy imbalance; Translations: [Morbid (severe) obesity due to excess calories]80-45-7917LsozudwBkrtj nutritional; endocrine; and metabolic disorders (12 sources)Drug-induced obesity; Translations: [Class 1 drug-induced obesity with body mass index (BMI) of 33.0 to 33.9 in adult]88-47-7749GqjfnmbCjoon nutritional; endocrine; and metabolic disorders (2 sources)Body mass index (BMI) 33.0-33.9, adult; Translations: [Body mass index (BMI) 33.0-33.9, adult]Onset: 16-81-8832HjtaheqBczgn nutritional; endocrine; and metabolic disorders (1 source)Morbid (severe) obesity due to excess calories; Translations: [Morbid (severe) obesity due to excess calories]Onset: 12-92-4878MjqeilwLmqnkztuda and visceral atherosclerosis (20 sources)Peripheral vascular disease; Translations: [Peripheral vascular disease, unspecified]Onset: 557229-94-7759DibwuajPychjwkq codes; unclassified (10 sources)Other specified health status; Translations: [Statin intolerance] EpisodicResidual codes; unclassified (2 sources)Swelling - edema - symptom; Translations: [Edema]EpisodicRespiratory failure; insufficiency; arrest (adult) (3 sources)Respiratory failure; Translations: [Respiratory failure, unspecified, unspecified whether with hypoxia or hypercapnia]Onset: EpisodicSepticemia (except in labor) (20 sources)Sepsis; Translations: [Sepsis, unspecified organism]Onset: 83-34-1143UxwekfgbYomqogweemk; intervertebral disc disorders; other back problems (11 sources)Spondylosis without myelopathy or radiculopathy, lumbosacral region; Translations: [Other intervertebral disc degeneration, lumbar region]Onset: 73-36-5778RitmjrsUaockaayyvq; intervertebral disc disorders; other back problems (20 sources)Sciatica, unspecified side; Translations: [Sciatica, left side] Onset: 56-84-621680781073-35-9844SxrmfnmjSnblvgyargyp (1 source)Peripheral vascular disease, unspecified / I73.9(ICD-9)Onset: 00-09-7785Fscswolxaueo (2 sources)Chronic ischemic heart disease, unspecified / I25.9(ICD-9)Onset: 33-93-2723Nehzbytnezls (1 source)Encounter for preprocedural cardiovascular examination / Z01.810(ICD-9)Onset: 31-27-0075Nxoczmgkkaxn (1 source)Nonrheumatic mitral (valve) insufficiency / I34.0(ICD-9)Onset: 46-65-6350Ijrmnbzwtklp (1 source)Coronary angioplasty status / Z98.61(ICD-9)Onset: 11-20-2017 Unclassified (1 source)Personal history of nicotine dependence / Z87.891(ICD-9)Onset: 58-14-0857Lepevlpoircm (1 source)Obesity, unspecified / E66.9(ICD-9)Onset: 87-62-5356Kesufaonaopd (2 sources)Athscl heart disease of [place] coronary artery w/o ang pctrs / I25.10(ICD-9)Onset: 37-73-0078Vtfepvgoabcd (1 source)Abnormal electrocardiogram [ECG] [EKG] / R94.31(ICD-9)Onset: 87-59-5281Iuzwebboctxc (1 source)Presence of aortocoronary bypass graft / Z95.1(ICD-9)Onset: 11-20-2017 Unclassified (1 source)Old myocardial infarction / I25.2(ICD-9)Onset: 39-96-4881Gdhnkpsgkefb (3 sources)Patient encounter iljhil32-55-4549Hsgudcdzqdfd (2 sources)Long-term current use of ocssmvc88-76-0360Rbmjhzk on above:Current Medication List includes insulin aspart and insulin glargine. added per OP CDI policy.Unclassified (1 source) You should certainly finish your antifungal therapy due to the yeast infection. Unclassified (1 source)Please call my office to make arrangements for your next scope and stent change in about 5 months. I did not provide additional antibiotics other than that provided during your procedure.Unclassified (4 sources)Rehab physician-follow up if needed Past or Other Problems Problem ClassificationProblemDateDocumented DateEpisodic/ChronicBacterial infection; unspecified site (1 source)Bacterial infection, unspecified; Translations: [Bacterial infection, unspecified]Onset: 41-86-1785VtorsikcQsykhbeide associated with dizziness or vertigo (20 sources)Dizziness; Translations: [Dizziness and giddiness]Onset: 07-08-2023 77-14-2830IoygccffIalnbmvl atherosclerosis and other heart disease (8 sources)Presence of aortocoronary bypass graft; Translations: [Aortocoronary bypass status]Onset: 879686-20-7466CzgfejqlMkcvm and electrolyte disorders (20 sources)Hyperkalemia; Translations: [Hyperpotassemia]Onset: 07-08-2023 88-08-3232NlzzxxbmPbbb disorders (3 sources)Mood disordersOnset: Other circulatory disease (20 sources)History of angioplasty; Translations: [Other postprocedural status] Onset: 07-08-2023 Resolved: 891747-54-4059PjqghpyvCnaxq circulatory disease (2 sources)Other specified symptoms and signs involving the circulatory and respiratory systems; Translations:[Other specified symptoms and signs involving the circulatory and respiratory systems]Onset: 87-82-8627ZtfmwvmaFmjwf connective tissue disease (20 sources)Pain in lower limb; Translations: [Pain in limb]Onset: 07-08-2023 06-88-8614AehrkdzyEkxuh diseases of kidney and ureters (1 source)Hydronephrosis with ureteral stricture, not elsewhere classified; Translations: [Hydronephrosis with ureteral stricture, not elsewhere classified] Onset: 79-90-0100IlrdzrixMxejp lower respiratory disease (20 sources)Dyspnea on exertion; Translations: [Shortness of breath]Onset: 252679-43-2740VphoakjkMthzh lower respiratory disease (4 sources)Dyspnea; Translations: [Shortness of breath]Onset: 10-14-2023 95-95-9605FlfrtrmeMnjbh lower respiratory disease (1 source)Shortness of breath; Translations: [Shortness of breath]Onset: 99-19-9446GtkvinbrXvtev screening for suspected conditions (not mental disorders or infectious disease) (20 sources)Electrocardiogram abnormal; Translations: [Nonspecific abnormal electrocardiogram [ECG] [EKG]]Onset: 07-08-2023 Resolved: 320771-42-7055LujjpjeeIwqqteyw codes; unclassified (18 sources)Edema; Translations: [Edema]Onset: 762452-03-6571Fzinpnav Screening and history of mental health and substance abuse codes (20 sources)Ex-smoker; Translations: [Personal history of tobacco use]Onset: 354945-78-1028WdbmtkmgAlxiojd on above:Quit 25+ years ago;Unclassified (1 source)Other low back pain M54.59Unclassified (12 sources)Onset: 09-17-2023 Resolved: 366501-78-9365Wypihsw tract infections (20 sources)Urinary tract infectious disease; Translations: [Urinary tract infection, site not specified]Onset: 696028-78-5097Fvbszbez Results Test NameValueInterpretationReference RangeFacilityBasophils Auto (Bld) [#/Vol] Ordered By: Nishi Welsh on 80-58-7056Esokstbxo (Bld) [#/Vol]0.0 10 3/uL0.0-0.1 [facility] CenterBasophils/100 WBC Auto (Bld)Ordered By: Nishi Welsh on 95-42-4818Jdtcrfhjl/100 WBC (Bld)0.5 %0.2-2.0[facility] CenterEosinophils/100 WBC Auto (Bld)Ordered By: Nishi Welsh on 05-03-2025 Eosinophils/100 WBC (Bld)1.5 %0.9-7.0[facility] Erythrocyte distribution width Auto (RBC) [Ratio]Ordered By: Nishi Welsh on 08-34-1350Ppdgxvtpmee distribution width (RBC) [Ratio]15.9 %High11.0-15.0 [facility] CenterGlobulin Calc (S) [Mass/Vol]Ordered By: Nishi Welsh on 23-42-7525Qlonqxmu (S) [Mass/Vol]4.4 g/dLUniversity Hospitals Elyria Medical CenterGlomerular filtration rate (GFR) estimation in non- AmericanOrdered By: Nishi Welsh on 17-77-2272XHB/1.73 sq M.predicted among non-blacks MDRD (S/P/Bld) [Vol rate/Area]26 mL/min/{1.73_m2}Low>=60 mL/min/1.73m 2FMemorial Health SystemHematocrit Auto (Bld) [Volume fraction]Ordered By: Nishi Welsh on 60-16-9493Cvmohidrac (Bld) [Volume fraction]28.8 %Low36.0-48.0 [facility] CenterHemoglobin [Mass/volume] in BloodOrdered By: Nishi Welsh on 09-06-8602Zknnzpuraw (Bld) [Mass/Vol]9.0 g/dLLow12.0-16.0 [facility] CenterLeukocytes [#/volume] corrected for nucleated erythrocytes in Blood by Automated counOrdered By: Nishi Welsh on 38-10-6162BRF corrected for nucl RBC Auto (Bld) [#/Vol]7.5 10 3/uL4.0-11.0[facility] CenterLymphocytes Auto (Bld) [#/Vol]Ordered By: Nishi Welsh on 69-38-0493Qugkfstalsf (Bld) [#/Vol]1.4 10 3/uL1.2-3.8[facility] CenterLymphocytes/100 WBC Auto (Bld)Ordered By: Nishi Welsh on 05-03-2025 Lymphocytes/100 WBC (Bld)18.3 %Low20.5-60.0[facility]H Auto (RBC) [Entitic mass]Ordered By: Nishi Welsh on 33-49-8151WEB (RBC) [Entitic mass]31.0 pg26.7-34.0[facility] CenterMCHC Auto (RBC) [Mass/Vol]Ordered By: Nishi Welsh on 29-05-5731JFTH (RBC) [Mass/Vol]31.3 g/dL 29.9-35.2FMemorial Health SystemMCV Auto (RBC) [Entitic vol]Ordered By: Nishi Welsh on 18-80-7608CCC (RBC) [Entitic vol]99.3 xILlzl61.0-99.0 [facility] CenterMonocytes Auto (Bld) [#/Vol]Ordered By: Nishi Welsh on 43-59-3635Tqyrevrqj (Bld) [#/Vol]0.6 10 3/uL0.3-0.8[facility] CenterMonocytes/100 WBC Auto (Bld)Ordered By: Nishi Welsh on 05-03-2025 Monocytes/100 WBC (Bld)8.2 %1.7-12.0[facility] CenterNeutrophils Auto (Bld) [#/Vol]Ordered By: Nishi Welsh on 52-11-9964Pvygkleeimo (Bld) [#/Vol]5.4 10 3/uL1.4-6.5FMemorial Health SystemNeutrophils/100 WBC Auto (Bld)Ordered By: Nishi Welsh on 46-97-9142Tnhtkcffvfv/100 WBC (Bld)71.2 % 43.0-75.0[facility] CenterNo Panel InformationOrdered By: Nishi Welsh on 58-20-570440650.0 pg/mLCritically high<=1800.0[facility]2.3 mg/dL1.8-2.4FMemorial Health System4.8 mg/dLHigh 2.6-4.7FMemorial Health System2.2 g/dLLow3.4-5.0[facility]0.1 10 3/uL0.0-0.7FMemorial Health System91 U/L46-116 [facility]14 U/L67-85YxpjszsmoUniversity Hospitals Elyria Medical Center11 U/IMju02-97MkpabvaisUniversity Hospitals Elyria Medical Center39.0[facility]0.02 10 3/uL0.00-0.03[facility]73.0 mg/dLHigh 7.0-18.0[facility]0.3 %0.0-0.5FMemorial Health System9.1 mg/dL8.5-10.1FMemorial Health System93 mmol/FHvf40-218 [facility]27.6 mmol/L21.0-32.0[facility]1.87 mg/dLHigh0.55-1.02[facility]31Low>=60 mL/min/1.73m 2FMemorial Health System126 mg/zXQkai94-604CisaruhavUniversity Hospitals Elyria Medical Center4.5 mmol/L3.5-5.1FMemorial Health System129 mmol/OBhw509-641MbtzcfwlvUniversity Hospitals Elyria Medical Center0.4 mg/dL0.2-1.0[facility]6.6 g/dL6.4-8.2FMemorial Health System38 mmol/L 30-90[facility] Medical CenterPlatelet mean volume Auto (Bld) [Entitic vol]Ordered By: Nishi Welsh on 04-40-3985Hcfocjsp mean volume (Bld) [Entitic vol]10.9 fL9.5-13.5FMemorial Health SystemPlatelets Auto (Bld) [#/Vol] Ordered By: Nishi Welsh on 64-46-3651Butwrkpoh (Bld) [#/Vol]246 10 3/wJ948-352 [facility] CenterRBC Auto (Bld) [#/Vol]Ordered By: Nishi Welsh on 43-17-1679CSP (Bld) [#/Vol]2.90 10 6/uLLow4.20-5.40[facility] Hospitalerum or plasma albumin/globulin mass ratioOrdered By: Nishi Welsh on 22-53-3635Nukcvva/Globulin [Mass ratio]0.5 {ratio}[facility] Hospitalerum or plasma anion gap determinationOrdered By: Nishi Welsh on 93-94-2618Munwm gap [Moles/Vol]12.9 mmol/LFMemorial Health SystemUrine Cultureon 48-56-6828Hxtagpxe identified Cx Nom (U)NormalThe Cannon [facility] Hospital Physician GroupComment on above:Performed By: #### CUU ####[facility] [id number] [place] [address] USABasophils Auto (Bld) [#/Vol]Ordered By: ([place]) Dominick Razo on 56-81-2787Dysqbzsru (Bld) [#/Vol]0.0 10 3/uL0.0-0.1 [facility] CenterBasophils/100 WBC Auto (Bld)Ordered By: ([place]) Dominick Razo on 84-39-5913Fmnryyvbj/100 WBC (Bld)0.4 %0.2-2.0[facility] CenterEosinophils/100 WBC Auto (Bld)Ordered By: ([place]) Dominick Razo on 30-88-7591Cexmflzqjil/100 WBC (Bld)0.4 %Low0.9-7.0[facility] CenterErythrocyte distribution width Auto (RBC) [Ratio]Ordered By: ([place]) Dominick Razo on 28-67-6186Yvwivlonlkt distribution width (RBC) [Ratio] 15.9 %High11.0-15.0[facility] CenterGlomerular filtration rate (GFR) estimation in non- AmericanOrdered By: ([place]) Dominick Razo on 58-32-8542QGA/1.73 sq M.predicted among non-blacks MDRD (S/P/Bld) [Vol rate/Area]23 mL/min/{1.73_m2}Low>=60 mL/min/1.73m 2FMemorial Health SystemHematocrit Auto (Bld) [Volume fraction]Ordered By: ([place]) Dominick Razo on 51-57-2520Yoiblagmxy (Bld) [Volume fraction]32.3 %Low36.0-48.0[facility] CenterHemoglobin [Mass/volume] in BloodOrdered By: ([place]) Dominick Razo on 60-08-8920Aztyxrfbuq (Bld) [Mass/Vol]9.9 g/dLLow12.0-16.0[facility] CenterLeukocytes [#/volume] corrected for nucleated erythrocytes in Blood by Automated counOrdered By: ([place]) Dominick Razo on 73-19-4847ZAI corrected for nucl RBC Auto (Bld) [#/Vol]10.0 10 3/uL4.0-11.0[facility] CenterLymphocytes Auto (Bld) [#/Vol]Ordered By: ([place]) Dominick Razo on 06-96-4938Iuwluejyjoo (Bld) [#/Vol]1.5 10 3/uL1.2-3.8[facility] CenterLymphocytes/100 WBC Auto (Bld)Ordered By: ([place]) Dominick Razo on 20-09-5086Lihwzohsrhq/100 WBC (Bld)15.2 %Low20.5-60.0[facility] CenterMCH Auto (RBC) [Entitic mass]Ordered By: ([place]) Dominick Razo on 82-23-4825SRD (RBC) [Entitic mass]31.1 pg26.7-34.0[facility] CenterMCHC Auto (RBC) [Mass/Vol]Ordered By: ([place]) Dominick Razo on 05-02-2025 MCHC (RBC) [Mass/Vol]30.7 g/dL29.9-35.2FMemorial Health SystemMCV Auto (RBC) [Entitic vol]Ordered By: ([place]) Dominick Razo on 73-18-8529KOS (RBC) [Entitic vol]101.6 iGTyft72.0-99.0[facility] CenterMonocytes Auto (Bld) [#/Vol]Ordered By: ([place]) Dominick Razo on 10-73-8564Oyydjvxbl (Bld) [#/Vol]0.5 10 3/uL0.3-0.8[facility] CenterMonocytes/100 WBC Auto (Bld)Ordered By: ([place]) Dominick Razo on 19-96-2724Fwmujiujn/100 WBC (Bld)4.8 % 1.7-12.0[facility] CenterNeutrophils Auto (Bld) [#/Vol]Ordered By: ([place]) Dominick Razo on 59-81-7628Qtxvnhahskr (Bld) [#/Vol]7.9 10 3/uLHigh 1.4-6.5FMemorial Health SystemNeutrophils/100 WBC Auto (Bld)Ordered By: ([place]) Dominick Razo on 77-47-3442Pxivobwpuxg/100 WBC (Bld)78.8 %High 43.0-75.0[facility] CenterNo Panel InformationOrdered By: Nishi Welsh on 42-20-783835.6 mm[Hg]40.0-52.0[facility] 7.3847.330-7.430[facility] CenterYES-FRMCUniversity Hospitals Elyria Medical CenterNONE SEEN #/LPFNONE SEENUniversity Hospitals Elyria Medical CenterNone Seen #/HPF0-2FMemorial Health SystemMODERATE #/HPFAbnormalNONE SEEN [facility] CenterNegativeNEGCincinnati VA Medical CenterMODERATEAbnormalNEGCincinnati VA Medical CenterCLEARCLEAR [facility] CenterLT. YELLOWYELLOWUniversity Hospitals Elyria Medical CenterLARGEAbnormalNEGCincinnati VA Medical CenterNONE SEENNONE SEEN [facility] CenterPositiveAbnormalNEGCincinnati VA Medical Center6.05.0-9.0[facility]100 mg/dLAbnormal NEG/TRACEUniversity Hospitals Elyria Medical Center1.0151.005-1.025[facility] CenterFEW #/LPFAbnormalNONE/RAREUniversity Hospitals Elyria Medical Center0.2 EU/dL0.2-1.0[facility]20-50 #/HPFAbnormalNONE SEEN [facility] CenterNo Panel InformationOrdered By: (Joshua Razo on 34-56-8561AhpioistWadgyytinUniversity Hospitals Elyria Medical Center1.0 mmol/L0.4-2.0 [facility]11105.0 pg/mLCritically high<=1800.0[facility]17.8 pg/mL4.0-51.3FMemorial Health System33.7 [facility]70.0 mg/dLHigh7.0-18.0[facility]0.0 10 3/uL0.0-0.7FMemorial Health System8.9 mg/dL 8.5-10.1FMemorial Health System91 mmol/ACye55-889OrywfpqpxUniversity Hospitals Elyria Medical Center28.3 mmol/L21.0-32.0[facility]2.08 mg/dL High0.55-1.02[facility]0.04 10 3/uLHigh0.00-0.03[facility]28Low>=60 mL/min/1.73m 2FMemorial Health System0.4 %0.0-0.5FMemorial Health System182 mg/sYGqnm65-397WtsirmzhxUniversity Hospitals Elyria Medical Center5.2 mmol/LHigh3.5-5.1FMemorial Health System129 mmol/GTrx359-751MmfljgjjpUniversity Hospitals Elyria Medical CenterNo Panel InformationOrdered By: Leroy Ashby on 52.4 mg/dL1.8-2.4FMemorial Health System Platelet mean volume Auto (Bld) [Entitic vol]Ordered By: ([place]) Dominick Razo on 26-69-3964Pswuyhjd mean volume (Bld) [Entitic vol]11.4 fL9.5-13.5FMemorial Health SystemPlatelets Auto (Bld) [#/Vol]Ordered By: ([place]) Dominick Razo on 57-12-2113Xpquyhmik (Bld) [#/Vol]255 10 3/iC979-749YpajvcvyxUniversity Hospitals Elyria Medical CenterRBC Auto (Bld) [#/Vol]Ordered By: ([place]) Dominick Razo on 12-75-9878HLJ (Bld) [#/Vol]3.18 10 6/uLLow4.20-5.40Knox Community Hospitalerum or plasma anion gap determinationOrdered By: ([place]) Dominick Razo on 59-61-0762Kxgjo gap [Moles/Vol]14.9 mmol/LFMemorial Health System Basic Metabolic Panelon 79-13-6428Gbrsv gap [Moles/Vol]9 mmol/LNormal9-15National Jewish HealthComment on above:Order Comment: CALL doctor [id number] tel. [phone], FAX: [phone] CALL doctor [id number] tel. [phone], FAX: [phone] By: #### BMP #### [facility] [address] [place] [address] Jsbxwsz [Mass/Vol]9.3 mg/dLNormal8.5-9.9National [facility] HealthComment on above:Order Comment: CALL doctor [id number] tel. [phone], FAX: [phone] CALL doctor L9755 tel. [phone], FAX: [phone] By: #### BMP #### [facility] [address] [place] [address] Csldhlvr [Moles/Vol]99 mmol/NRwxubr65-648KmzhtNational Jewish HealthComment on above:Order Comment: CALL doctor [id number] tel. [phone], FAX: [phone] CALL doctor L9755 tel. [phone], FAX: [phone] By: #### BMP #### [facility] [address] [place] [address] LY0 [Moles/Vol]30 mmol/DTewocm50-82YcgihNational Jewish Health Comment on above:Order Comment: CALL doctor [id number] tel. [phone], FAX: [phone] CALL doctor L9755 tel. [phone], FAX: [phone] By: #### BMP #### [facility] [address] [place] [address] Jbmniokuqy [Mass/Vol]2.00 mg/dLCritically high0.50-0.90National Jewish HealthComment on above:Order Comment: CALL doctor [id number] tel. [phone], FAX: [phone] CALL doctor L9755 tel. [phone], FAX: [phone] By: #### BMP #### [facility] [address] [place] [address] REJ14.8Low>60National Jewish HealthComment on above:Order Comment: CALL doctor [id number] tel. [phone], FAX: [phone] CALL doctor L9755 tel. [phone], FAX: [phone] Comment: Pediatric calculator link [email or web address] Effective Apr 15, 2022 [...] or following therapy that affects renal tubular secretion.Performed By: #### BMP #### [facility] [address] [place] [address] Poiqlco [Mass/Vol]145 mg/dLCritically dmvg75-46LwjqzPenrose HospitalComment on above:Order Comment: CALL doctor [id number] tel. [phone], FAX: [phone] CALL doctor L9755 tel. [phone], FAX: [phone] By: #### BMP #### [facility] [address] [place] [address] Xkhlteepv [Moles/Vol]4.6 mmol/LNormal3.4-4.9National Jewish HealthComment on above:Order Comment: CALL doctor [id number] tel. [phone], FAX: [phone] CALL doctor L9755 tel. [phone], FAX: [phone] By: #### BMP #### [facility] [address] [place] [address] Vqhhke [Moles/Vol]138 mmol/XZbxmix888-720HtscvNational Jewish HealthComment on above:Order Comment: CALL doctor L9755 tel. [phone], FAX: [phone] CALL doctor L9755 tel. [phone], FAX: [phone] By: #### BMP #### [facility] [address] [place] [address] Lsge nitrogen [Mass/Vol]35 mg/dLCritically high8-23National Jewish HealthComment on above:Order Comment: CALL doctor [id number] tel. [phone], FAX: [phone] CALL doctor L9755 tel. [phone], FAX: [phone] By: #### BMP #### [facility] [address] [place] [address] OZI With Platelet No Differentialon 14-68-6186Lulbxmiorob distribution width (RBC) [Ratio]16.7 %Critically high11.5-14.5National Jewish HealthComment on above:Order Comment: CALL doctor [id number] tel. [phone], FAX: [phone] CALL doctor L9755 tel. [phone], FAX: [phone] By: #### CBCND #### [facility] [address] [place] [address] Zmlbmzddzv (Bld) [Volume fraction]35.8 %Low37.0-47.0National Jewish HealthComment on above:Order Comment: CALL doctor L9755 tel. [phone], FAX: [phone] CALL doctor L9755 tel. [phone], FAX: [phone] By: #### CBCND #### [facility] [address] [place] [address] Fyouabbhvx (Bld) [Mass/Vol]10.4 g/dLLow12.0-16.0National Jewish HealthComment on above:Order Comment: CALL doctor L9755 tel. [phone], FAX: [phone] CALL doctor [id number] tel. [phone], FAX: [phone] By: #### CBCND #### [facility] [address] [place] [address] ASI (RBC) [Entitic mass]31.5 pgCritically high27.0-31.3MPenrose HospitalComment on above:Order Comment: CALL doctor [id number] tel. [phone], FAX: [phone] CALL doctor L9755 tel. [phone], FAX: [phone] By: #### CBCND #### [facility] [address] [place] [address] HGML88.1 %Low33.0-37.0[facility] HealthComment on above: Order Comment: CALL doctor L9755 tel. [phone], FAX: [phone] CALL doctor L9755 tel. [phone], FAX: [phone] By: #### CBCND #### [facility] [address] [place] [address] PMJ (RBC) [Entitic vol]108.5 fLCritically high79.4-94.8[facility] HealthComment on above:Order Comment: CALL doctor L9755 tel. [phone], FAX: [phone] CALL doctor L9755 tel. [phone], FAX: [phone] By: #### CBCND #### [facility] [address] [place] [address] Cwcjgnzwh (Bld) [#/Vol]309 10*3/hNDnvcyz207-951ZunwtNational Jewish HealthComment on above:Order Comment: CALL doctor L9755 tel. [phone], FAX: [phone] CALL doctor L9755 tel. [phone], FAX: [phone] By: #### CBCND #### [facility] [address] [place] [address] LFC (Bld) [#/Vol]3.30 10*6/uLLow4.20-5.40[facility] Jewish HealthComment on above:Order Comment: CALL doctor L9755 tel. [phone], FAX: [phone] CALL doctor L9755 tel. [phone], FAX: [phone] By: #### CBCND #### [facility] [address] [place] [address] THR (Bld) [#/Vol]7.1 10*3/uLNormal4.8-10.8[facility] HealthComment on above:Order Comment: CALL doctor L9755 tel. [phone], FAX: [phone] CALL doctor L9755 tel. [phone], FAX: [phone] By: #### CBCND #### [facility] [address] [place] [address] UQFF CBC WITH PLATELET NO DIFFERENTIALon 91-77-9260Uveamsyzqrj distribution width (RBC) [Ratio]16.7 %High11.5 - 14.5 %NOMS HealthcareHematocrit (Bld) [Volume fraction]35.8 %Low37.0 - 47.0 %[facility] HealthcareHemoglobin (Bld) [Mass/Vol]10.4 g/dLLow12.0 - 16.0 g/dLNOAR HealthcareInterpretation and review of laboratory resultsAbnormalI-70 Community HospitalH (RBC) [Entitic mass]31.5 pgHigh 27.0 - 31.3 pgNOWashington University Medical CenterMCV (RBC) [Entitic vol]108.5 jSPlfc72.4 - 94.8 fL [facility] HealthcareMLR MCHC29.1 %Low33.0 - 37.0 %[facility] HealthcareMLR PLATELET COUNT 309 K/uL130 - 400 K/uLNOMS HealthcareMLR RBC3.3LowNOAR HealthcareWBC (Bld) [#/Vol]7.1 10*3/uL4.8 - 10.8 K/uLNOMS HealthcareCALL doctor L9755 tel. [phone], FAX: [phone] CALL doctor L9755 tel. [phone], FAX: [phone] [facility] HealthcareproBNPon 37-27-6143Poceaesnawg peptide B (Bld) [Mass/Vol]312[address] pg/mLNormalNational Jewish HealthComment on above:Order Comment: CALL doctor L9755 tel. [phone], FAX: [phone] CALL doctor L9755 tel. [phone], FAX: [phone] Comment: NT-pro BNP ACUTE Interpretive Guidelines: Age Cutoff for [...] pooled analysis of 1256 patients. Heart Journal. 2006;27:330-337Performed By: #### BNPPR #### [facility] [address] [place] [address] [phone] filtration rate (GFR) estimation in non- Ordered By: Chao Chapman on 73-11-5949FZO/1.73 sq M.predicted among non-blacks MDRD (S/P/Bld) [Vol rate/Area]17 mL/min/{1.73_m2}Low>=60 mL/min/1.73m 2 [facility] CenterNo Panel InformationOrdered By: Chao Chapman on 30-09-574492.5FMemorial Health System51.0 mg/dLHigh7.0-18.0 [facility]8.6 mg/dL8.5-10.1FMemorial Health System102 mmol/J40-211WvxctuisqUniversity Hospitals Elyria Medical Center31.2 mmol/L21.0-32.0 [facility]2.76 mg/dLHigh0.55-1.02[facility]20Low>=60 mL/min/1.73m 2FMemorial Health System191 mg/dL Owdk67-086JjrwfhstfUniversity Hospitals Elyria Medical Center5.0 mmol/L3.5-5.1FMemorial Health System139 mmol/G116-330JoacjdumnKnox Community Hospitalerum or plasma anion gap determinationOrdered By: Chao Chapman on 65-61-6043Ovlxv gap [Moles/Vol]10.8 mmol/Mary Rutan HospitalGlomerular filtration rate (GFR) estimation in non- AmericanOrdered By: Trace Alvarez on 21-98-1746QLB/1.73 sq M.predicted among non-blacks MDRD (S/P/Bld) [Vol rate/Area]16 mL/min/{1.73_m2}Low>=60 mL/min/1.[address]m [address] [place], [place] [address]No Panel InformationOrdered By: Trace Alvarez on 87-45-5115008.2 pg/mL Critically high4.0-51.3FMemorial Health System21.0[facility]59.0 mg/dLHigh7.0-18.0[facility]8.7 mg/dL 8.5-10.1FMemorial Health System101 mmol/L47-653FgjnsvnfhUniversity Hospitals Elyria Medical Center27.4 mmol/L21.0-32.0[facility]2.81 mg/dL High0.55-1.02[facility]20Low>=60 mL/min/1.[address]m [address] [place], [place] [address] mg/cUFfrx79-960AmcbzlugyUniversity Hospitals Ely[facility] Medical Center5.2 mmol/LHigh3.5-5.1FMemorial Health System137 mmol/L847-752MaqssgbjaKnox Community Hospitalerum or plasma anion gap determinationOrdered By: Trace Alvarez on 96-56-5866Flmqm gap [Moles/Vol]13.8 mmol/LFMemorial Health SystemErythrocyte distribution width Auto (RBC) [Ratio]Ordered By: Trace Alvarez on 64-15-1610Othmmhjsyzw distribution width (RBC) [Ratio]16.4 %High11.0-15.0 [facility] Medical CenterGlobulin Calc (S) [Mass/Vol]Ordered By: Trace Alvarez on 96-32-1238Xncrzslp (S) [Mass/Vol]4.3 g/dLUniversity Hospitals Elyria Medical CenterGlomerular filtration rate (GFR) estimation in non- AmericanOrdered By: Trace Alvarez on 86-95-5180THS/1.73 sq M.predicted among non-blacks MDRD (S/P/Bld) [Vol rate/Area]14 mL/min/{1.73_m2}Low>=60 mL/min/1.[address]m [address] [place], [place] [address]Hematocrit Auto (Bld) [Volume fraction]Ordered By: Trace Alvarez on 15-31-4919Ucqykkscjx (Bld) [Volume fraction]30.8 %Low36.0-48.0 [facility] CenterHemoglobin [Mass/volume] in BloodOrdered By: Trace Alvarez on 64-96-8568Ofxyzbenei (Bld) [Mass/Vol]9.3 g/dLLow12.0-16.0 [facility] CenterLeukocytes [#/volume] corrected for nucleated erythrocytes in Blood by Automated counOrdered By: Trace Alvarez on 04-13-2025 WBC corrected for nucl RBC Auto (Bld) [#/Vol]5.4 10 3/uL4.0-11.0[facility] Auto (RBC) [Entitic mass]Ordered By: Trace Alvarez on 68-69-0421FOI (RBC) [Entitic mass]32.1 pg26.7-34.0[facility] Medical CenterMCHC Auto (RBC) [Mass/Vol]Ordered By: Trace Alvarez on 82-01-9221LOHI (RBC) [Mass/Vol]30.2 g/dL29.9-35.2FMemorial Health SystemMCV Auto (RBC) [Entitic vol]Ordered By: Trace Alvarez on 04-56-3390RMZ (RBC) [Entitic vol]106.2 vAHyoj86.0-99.0[facility] CenterNo Panel Information Ordered By: Trace Alvarez on 55.0 mmol/L3.5-5.1FMemorial Health System127.6 pg/mLCritically high4.0-51.3FMemorial Health System2.2 g/dLLow3.4-5.0[facility]62 U/U27-329EarckxphmUniversity Hospitals Elyria Medical Center18 U/N72-22MdvslkghgUniversity Hospitals Elyria Medical Center15 U/L15-37 [facility]18.7FMemorial Health System60.0 mg/dL High7.0-18.0[facility]8.9 mg/dL8.5-10.1FMemorial Health System99 mmol/W57-654AezoozgizUniversity Hospitals Elyria Medical Center30.1 mmol/L 21.0-32.0[facility]3.21 mg/dLHigh0.55-1.02[facility]17Low>=60 mL/min/1.73m 2FMemorial Health System 230 mg/aPOurp98-122TueenvfndUniversity Hospitals Elyria Medical Center135 mmol/KQic792-995 [facility]0.4 mg/dL0.2-1.0[facility]6.5 g/dL6.4-8.2FMemorial Health SystemPlatelet mean volume Auto (Bld) [Entitic vol]Ordered By: Trace Alvarez on 99-78-2958Rtnllapd mean volume (Bld) [Entitic vol]11.2 fL9.5-13.5FMemorial Health SystemPlatelets Auto (Bld) [#/Vol]Ordered By: Trace Alvarez on 71-91-5355Elhrhlogv (Bld) [#/Vol] 212 10 3/zU265-925VbjkeuhljUniversity Hospitals Elyria Medical CenterRBC Auto (Bld) [#/Vol]Ordered By: Trace Alvarez on 64-82-9912KBC (Bld) [#/Vol]2.90 10 6/uLLow4.20-5.40 [facility] Hospitalerum or plasma albumin/globulin mass ratio Ordered By: Trace Alvarez on 29-72-8178Ikiccet/Globulin [Mass ratio]0.5 {ratio} [facility] Community Hospitalerum or plasma anion gap determinationOrdered By: Trace Alvarez on 27-44-0164Uocav gap [Moles/Vol]11.8 mmol/LFMemorial Health SystemErythrocyte distribution width Auto (RBC) [Ratio]Ordered By: Leroy Ashby on 26-72-7289Zqclsgdjgjx distribution width (RBC) [Ratio]17.0 % High11.0-15.0[facility] Medical CenterGlobulin Calc (S) [Mass/Vol] Ordered By: Trace Alvarez on 49-68-2482Taoymbzx (S) [Mass/Vol]3.9 g/dLUniversity Hospitals Elyria Medical CenterGlomerular filtration rate (GFR) estimation in non- AmericanOrdered By: Trace Alvarez on 16-11-2222BVQ/1.73 sq M.predicted among non-blacks MDRD (S/P/Bld) [Vol rate/Area]14 mL/min/{1.73_m2}Low>=60 mL/min/1.73m 2FMemorial Health SystemHematocrit Auto (Bld) [Volume fraction]Ordered By: Leroy Ashby on 08-88-3101Fkpafbwruh (Bld) [Volume fraction] 27.0 %Low36.0-48.0[facility] CenterHemoglobin [Mass/volume] in BloodOrdered By: Leroy Ashby on 73-16-7433Thngpxbwiq (Bld) [Mass/Vol]8.0 g/dLLow 12.0-16.0[facility] CenterLeukocytes [#/volume] corrected for nucleated erythrocytes in Blood by Automated counOrdered By: Leroy Ashby on 22-46-6052XZM corrected for nucl RBC Auto (Bld) [#/Vol]7.2 10 3/uL4.0-11.0 [facility] Auto (RBC) [Entitic mass]Ordered By: Leroy Michelledir on 91-37-5187GDI (RBC) [Entitic mass]31.7 pg26.7-34.0[facility] Auto (RBC) [Mass/Vol]Ordered By: Leroy Michelledir on 04-12-2025 MCHC (RBC) [Mass/Vol]29.6 g/dLLow29.9-35.2FMemorial Health SystemMCV Auto (RBC) [Entitic vol]Ordered By: Leroy Isma on 45-26-4232QYW (RBC) [Entitic vol]107.1 iADgsl28.0-99.0[facility] CenterNo Panel Information Ordered By: Outside Provider on 28-86-76660201.0 pg/mLCritically high<=1800.0 [facility]165.0 pg/mLCritically high4.0-51.3FMemorial Health SystemNo Panel InformationOrdered By: Trace Alvarez on 09-30-53305.2 g/dLLow3.4-5.0[facility]56 U/L46-116 [facility]13 U/IEyy58-32FxlnneblyUniversity Hospitals Elyria Medical Center 14 U/RKxa50-28NkfvqbswpUniversity Hospitals Elyria Medical Center16.6FMemorial Health System53.0 mg/dLHigh7.0-18.0[facility]8.3 mg/dLLow 8.5-10.1FMemorial Health System99 mmol/T34-096JycjwmtsgUniversity Hospitals Elyria Medical Center29.6 mmol/L21.0-32.0[facility]3.20 mg/dL High0.55-1.02[facility]17Low>=60 mL/min/1.73m 2FMemorial Health System214 mg/fPEsfe93-828SdirrviilUniversity Hospitals Elyria Medical Center5.2 mmol/LHigh3.5-5.1FMemorial Health System137 mmol/N297-706LifojmfywUniversity Hospitals Elyria Medical Center0.3 mg/dL0.2-1.0[facility]6.1 g/dL Low6.4-8.2FMemorial Health SystemPlatelet mean volume Auto (Bld) [Entitic vol]Ordered By: Leroy Isma on 14-29-8022Gawepveb mean volume (Bld) [Entitic vol]11.1 fL9.5-13.5FMemorial Health SystemPlatelets Auto (Bld) [#/Vol]Ordered By: Leroy Isma on 29-41-4518Ocudgwbdg (Bld) [#/Vol]169 10 3/pA104-394GkqjfvhptUniversity Hospitals Elyria Medical CenterRBC Auto (Bld) [#/Vol]Ordered By: Leroy Isma on 12-59-1512TAC (Bld) [#/Vol]2.52 10 6/uLLow4.20-5.40[facility] Hospitalerum or plasma albumin/globulin mass ratioOrdered By: Trace Alvarez on 25-45-1065Ajjhywk/Globulin [Mass ratio]0.6 {ratio}[facility] Hospitalerum or plasma anion gap determinationOrdered By: Trace Alvarez on 25-92-4686Kypsa gap [Moles/Vol]13.6 mmol/LFMemorial Health SystemBasophils Auto (Bld) [#/Vol]Ordered By: Robby Light on 66-36-7681Lnwhxglhf (Bld) [#/Vol]0.0 10 3/uL0.0-0.1FMemorial Health SystemBasophils/100 WBC Auto (Bld)Ordered By: Robby Light on 79-20-3745Lwswlitzn/100 WBC (Bld)0.2 % 0.2-2.0[facility] CenterEosinophils/100 WBC Auto (Bld)Ordered By: Robby Light on 75-27-7695Gzirmlmgbnb/100 WBC (Bld)1.8 %0.9-7.0[facility] Medical CenterErythrocyte distribution width Auto (RBC) [Ratio]Ordered By: Robby Light on 83-93-4015Vesdjnrkssx distribution width (RBC) [Ratio]17.3 % High11.0-15.0[facility] Medical CenterGlomerular filtration rate (GFR) estimation in non- AmericanOrdered By: Robby Light on 29-12-0891QIT/1.73 sq M.predicted among non-blacks MDRD (S/P/Bld) [Vol rate/Area]15 mL/min/{1.73_m2}Low>=60 mL/min/1.73m 2FMemorial Health System Hematocrit Auto (Bld) [Volume fraction]Ordered By: Robby Light on 04-11-2025 Hematocrit (Bld) [Volume fraction]36.3 %36.0-48.0[facility] Medical CenterHemoglobin [Mass/volume] in BloodOrdered By: Robby Light on 04-11-2025 Hemoglobin (Bld) [Mass/Vol]10.7 g/dLLow12.0-16.0[facility] CenterLeukocytes [#/volume] corrected for nucleated erythrocytes in Blood by Automated counOrdered By: Robby Light on 33-72-1425SID corrected for nucl RBC Auto (Bld) [#/Vol]8.2 10 3/uL4.0-11.0[facility] Lymphocytes Auto (Bld) [#/Vol]Ordered By: Robby Light on 46-10-2765Daltsudpjfk (Bld) [#/Vol]1.3 10 3/uL1.2-3.8[facility] CenterLymphocytes/100 WBC Auto (Bld)Ordered By: Robby Light on 96-35-7650Uosmskhfcmz/100 WBC (Bld)15.5 %Low20.5-60.0[facility] HospitalH Auto (RBC) [Entitic mass] Ordered By: Robby Light on 80-53-0283DBY (RBC) [Entitic mass]32.0 pg26.7-34.0 [facility] Medical CenterMCHC Auto (RBC) [Mass/Vol]Ordered By: Robby Light on 65-26-6560AGQN (RBC) [Mass/Vol]29.5 g/dLLow29.9-35.2FMemorial Health SystemMCV Auto (RBC) [Entitic vol]Ordered By: Robby Light on 04-11-2025 MCV (RBC) [Entitic vol]108.7 cLRema57.0-99.0[facility] Monocytes Auto (Bld) [#/Vol]Ordered By: Robby Light on 18-46-2734Aybhssonw (Bld) [#/Vol]0.8 10 3/uL0.3-0.8[facility] CenterMonocytes/100 WBC Auto (Bld)Ordered By: Robby Light on 28-38-0361Rpxwifbyh/100 WBC (Bld)9.3 % 1.7-12.0[facility] Medical CenterNeutrophils Auto (Bld) [#/Vol]Ordered By: Robby Light on 93-54-1403Gcopcreiwdm (Bld) [#/Vol]6.0 10 3/uL1.4-6.5 [facility] CenterNeutrophils/100 WBC Auto (Bld)Ordered By: Robby Light on 19-27-9015Prwkgkwhywk/100 WBC (Bld)73.0 %43.0-75.0[facility] CenterNo Panel InformationOrdered By: Trace Alvarez on 09-29-76586.4 mmol/L0.4-2.0[facility]16.41 mg/dLHigh<=0.50[facility] CenterNo Panel InformationOrdered By: Robby Garryowen on 04-11-2025 134.7 pg/mLCritically high4.0-51.3FMemorial Health SystemALREADY ORDEREDUniversity Hospitals Elyria Medical CenterNONE SEEN #/LPFNONE/RAREUniversity Hospitals Elyria Medical CenterNone Seen #/HPFNone [facility] LARGE #/HPFAbnormalNONE [facility] HealthcareCOLOR INTERFERENCE Abnormal5.0-9.0[facility] CenterCLOUDYAbnormalCLEARUniversity Hospitals Elyria Medical CenterDK REDAbnormalYELLOWUniversity Hospitals Elyria Medical Center COLOR INTERFERENCE mg/dLAbnormalNEG/TRACEUniversity Hospitals Elyria Medical CenterNONE SEENElyria Memorial Hospital>100 #/HPFAbnormal0-2FMemorial Health System1.996Okpzaneh9.005-1.025[facility] COLOR INTERFERENCE EU/dLAbnormal0.2-1.0[facility]75-100 #/HPFAbnormalNONE [facility]16.0[facility]49.0 mg/dLHigh7.0-18.0[facility]0.2 10 3/uL 0.0-0.7FMemorial Health System9.0 mg/dL8.5-10.1FMemorial Health System100 mmol/D02-537UlxabeihpUniversity Hospitals Elyria Medical Center29.1 mmol/L 21.0-32.0[facility]3.07 mg/dLHigh0.55-1.02[facility]0.02 10 3/uL0.00-0.03[facility]18 Low>=60 mL/min/1.[address]m [address] [place], [place] [address].2 %0.0-0.5FMemorial Health System132 mg/iQImcf62-549BxpqbfwukUniversity Hospitals Elyria Medical Center4.9 mmol/L3.5-5.1FMemorial Health System138 mmol/A339-368QnygvpnlgUniversity Hospitals Elyria Medical CenterPlatelet mean volume Auto (Bld) [Entitic vol]Ordered By: Robby Light on 62-25-0459Yanbetst mean volume (Bld) [Entitic vol]9.8 fL9.5-13.5 [facility] Medical CenterPlatelets Auto (Bld) [#/Vol]Ordered By: Robby Light on 43-05-8883Sezvzjmeu (Bld) [#/Vol]192 10 3/gA742-390HpaigvggxUniversity Hospitals Elyria Medical CenterRBC Auto (Bld) [#/Vol]Ordered By: Robby Light on 83-22-7958MNB (Bld) [#/Vol]3.34 10 6/uLLow4.20-5.40[facility] Community Hospitalerum or plasma anion gap determinationOrdered By: Robby Light on 60-83-3691Safuu gap [Moles/Vol]13.8 mmol/LFMemorial Health SystemUrine Cultureon 28-05-8825Uoffzrqs identified Cx Nom (U)NormalHca Florida Saras[facility] Comment on above:Performed By: #### CUU ####[facility] [address] [place] [address] USAUrine cultureOrdered By: Robby Light on 47-40-2430Tbhexcux identified Cx Nom (U)Klebsiella pneumoniaeAbnoMarymount HospitalCapillary blood glucose measurement by glucometer (mass/volume)Ordered By: Mateo Schaeffer on 61-54-7255Kjapuwq [Mass/Vol]238 mg/dL [facility] HospitalComment on above:Result Comment: Random Glucose Reference Range is dependent on time and content of last meal. Glucose of more than 200 mg/dL in a nonstressed, ambulatory subject supports the diagnosis of Diabetes Mellitus.PERFORMED BY:[facility] [place], [place] [phone] MEDICAL DIRECTORALINA PADILLA M.D.Performed By: #### GLULS ####Point of Care testing, Glucose Poct Glucometerson 01-24-0704Jyfycbi [Mass/Vol]169 mg/dLNoAtrium Health Mercy Physician GroupComment on above:Result Comment: Random Glucose Reference Range is dependent on time and content of last meal. Glucose of more than 200 mg/dL in a nonstressed, ambulatory subject supports the diagnosis of Diabetes Mellitus.PERFORMED BY:[place] [address] [place], [place] [phone] MEDICAL JULIAN PADILLA M.D.Performed By: #### GLULS ####Point of Care testing,Glucose [Mass/Vol]192 mg/dLNoAtrium Health Mercy Physician GroupComment on above:Result Comment: Random Glucose Reference Range is dependent on time and content of last meal. Glucose of more than 200 mg/dL in a nonstressed, ambulatory subject supports the diagnosis of Diabetes Mellitus.PERFORMED BY:[place] [address] [place], [place] [phone] MEDICAL JULIAN PADILLA M.D.Performed By: #### GLULS ####Point of Care testing, A1C with Estimated Average Gluon 32-37-0874Vzwtokq [Mass/Vol]151 mg/dLNoAtrium Health Mercy Physician GroupComment on above:Result Comment: PERFORMED BY:[address]CASTRO BARRETOPaulMAYURICHERRYVILLE, [place] [phone] MEDICAL JULIAN PADILLA M.D.Performed By: #### LIPID, A1C WTH eA, HS TROP, BMP, CBC, MG ####[address] [place] [address] USABasic Metabolic Panelon 78-14-1104Wsmyikvdyk Clr Calc Uvsnoevi94.86 NormalHca Florida Sarasota Doctors Hospital Physician GroupComment on above:Performed By: #### LIPID, A1C WTH eA, HS TROP, BMP, CBC, MG ####[address] [address] USAGFR/1.73 sq M.predicted MDRD (S/P/Bld) [Vol rate/Area]31.652 mL/min/{1.73_m2}NormalHca Florida Sarasota Doctors Hospital Physician GroupComment on above:Performed By: #### LIPID, A1C WTH eA, HS TROP, BMP, CBC, MG ####[address] [place] [address] USABasophils [#/volume] in Blood by Automated countOrdered By: Juice Mackenzie on 90-22-0845Lkbmgssfd (Bld) [#/Vol]0.0 10*3/uLNormal0.0-0.2FMemorial Health SystemComment on above:Result Comment: PERFORMED BY:[address] [place], [place] [phone] MEDICAL DIRECTORALINA PADILLA M.D.Performed By: #### LIPID, A1C WTH eA, HS TROP, BMP, CBC, MG ####[address] [address] USABasophils/100 leukocytes in Blood by Automated countOrdered By: Juice Mackenzie on 04-08-2025 Basophils/100 WBC (Bld)0.7 %Normal.[facility] CenterComment on above:Performed By: #### LIPID, A1C WTH eA, HS TROP, BMP, CBC, MG ####[address] [address] USABlood estimated average glucose determination by estimation from glycated hemoglobinOrdered By: Juice Mackenzie on 03-29-2323Trbxpab glucose Estimated from glycated hemoglobin (Bld) [Mass/Vol]151 mg/dLUniversity Hospitals Elyria Medical CenterCalcium [Mass/volume] in Serum or PlasmaOrdered By: Juice Mackenzie on 09-52-9445Oeyjsct [Mass/Vol]8.8 mg/dLNormal8.6-10.3FMemorial Health SystemComment on above:Performed By: #### LIPID, A1C WTH eA, HS TROP, BMP, CBC, MG ####[address] [address] USACarbon dioxide, total [Moles/volume] in Serum or PlasmaOrdered By: Juice Mackenzie on 74-05-0628QC5 [Moles/Vol]33.2 mmol/LHigh21.0-31.0[facility] Medical CenterComment on above:Performed By: #### LIPID, A1C WTH eA, HS TROP, BMP, CBC, MG ####[facility] [place] [address] USAChloride [Moles/volume] in Serum or PlasmaOrdered By: Juice Mackenzie on 34-94-1855Rjpqwvyv [Moles/Vol]101 mmol/LNormal 98-107[facility] Medical CenterComment on above:Performed By: #### LIPID, A1C WTH eA, HS TROP, BMP, CBC, MG ####[facility] [place] [address] USACholesterol [Mass/volume] in Serum or Plasma Ordered By: Juice Mackenzie on 93-76-4935Dexgtayqlha [Mass/Vol]126 mg/xMAst672-906 [facility] Medical CenterComment on above:Result Comment: Chol less than 200 mg/dl low risk Chol 201-239 mg/dl borderline risk Chol 240 mg/dland greater high riskPerformed By: #### LIPID, A1C WTH eA, HS TROP, BMP, CBC, MG ####[address] [place] [address] [place] Cholesterol in HDL [Mass/volume] in Serum or PlasmaOrdered By: Juice Mackenzie on 14-80-6871Otkyyyzzwdg in HDL [Mass/Vol]34 mg/nDTyyezh90-04NziddsjyfUniversity Hospitals Elyria Medical CenterComment on above:Result Comment: HDL CHOL ATP-III CLASSIFICATION Cardiovascular Risk HDL > or equal to 60 mg/dL LOW HDL < 40 mg/dL HIGHPerformed By: #### LIPID, A1C WTH eA, HS TROP, BMP, CBC, MG ####[facility] [place] [address] USACholesterol in LDL Calc [Mass/Vol] Ordered By: Juice Mcakenzie on 05-46-3896Pjcfujxeofq in LDL [Mass/Vol]54 mg/dL0-100 [facility] Medical CenterCholesterol in VLDL Calc [Mass/Vol]Ordered By: Juice Mackenzie on 68-69-7225Mdguvpcehvd in VLDL [Mass/Vol]38 mg/dLUniversity Hospitals Elyria Medical CenterComplete Blood Count Auto Diffon 57-34-5619Ixel Corpuscular HGB Conc32.0 g/eMVkabtx45.0-35.0[facility] Treatment Centers Of AmericaComment on above:Performed By: #### LIPID, A1C WTH eA, HS TROP, BMP, CBC, MG ####[address] [address] USANRBC% 0.2 /100{WBC}Normal0-0.5The [facility] Centers Of AmericaComment on above:Performed By: #### LIPID, A1C WTH eA, HS TROP, BMP, CBC, MG ####[place] [id number] USAWhite Blood Count7.1 [CFU]/mLNormal 3.8-11.6The [facility] Centers Of AmericaComment on above:Performed By: #### LIPID, A1C WTH eA, HS TROP, BMP, CBC, MG ####[place] [address] USACreatinine [Mass/volume] in Serum or PlasmaOrdered By: Juice Mackenzie on [id number] [Mass/Vol]1.64 mg/dLHigh0.60-1.20 [facility] CenterComment on above:Performed By: #### LIPID, A1C WTH eA, HS TROP, BMP, CBC, MG ####[address] [address] USAECH echo transthoracicon [id number] echo transthoracicNormalThe Cancer Treatment Centers Of AmericaEosinophils [#/volume] in Blood by Automated countOrdered By: Juice Mackenzie on [id number] (Bld) [#/Vol]0.2 10*3/uLNormal0.0-0.45[facility] CenterComment on above:Performed By: #### LIPID, A1C WTH eA, HS TROP, BMP, CBC, MG ####[place] [id number] USAEosinophils/100 leukocytes in Blood by Automated countOrdered By: Juice Mackenzie on 04-08-2025 Eosinophils/100 WBC (Bld)2.6 %Normal.[facility]lyria Medical CenterComment on above:Performed By: #### LIPID, A1C WTH eA, HS TROP, BMP, CBC, MG ####[facility] [place] [address] USAErythrocyte distribution width [Ratio] by Automated countOrdered By: Juice Mackenzie on 48-13-0055Evpfqqsuyhh distribution width (RBC) [Ratio]18.3 %High11.9-15.3 [facility] Medical CenterComment on above:Performed By: #### LIPID, A1C WTH eA, HS TROP, BMP, CBC, MG ####[address] [place] [address] USAErythrocytes [#/volume] in Blood by Automated count Ordered By: Juice Mackenzie on 95-24-9111YCQ (Bld) [#/Vol]2.99 10*6/uLLow3.60-5.00 [facility] Medical CenterComment on above:Performed By: #### LIPID, A1C WTH eA, HS TROP, BMP, CBC, MG ####[address] [place] [address] USAGlomerular filtration rate [Volume Rate/Area] in Serum, Plasma or Blood by CreatinineOrdered By: Juice Mackenzie on 04-08-2025 Glomerular filtration rate [Volume Rate/Area] in Serum, Plasma or Blood by Lgudkjhgrb84.652 mL/MinUniversity Hospitals Elyria Medical CenterGlucose Poct Glucometers on 89-44-6273Dgaekaf [Mass/Vol]213 mg/dLNoAtrium Health Mercy Physician Group Comment on above:Result Comment: Random Glucose Reference Range is dependent on time and content of last meal. Glucose of more than 200 mg/dL in a nonstressed, ambulatory subject supports the diagnosis of Diabetes Mellitus.PERFORMED BY:[address] [place], [place] [phone] MEDICAL DIRECTORALINA PADILLA M.D.Performed By: #### GLULS ####Point of Care testing,Glucose [Mass/Vol]129 mg/dLNoAtrium Health Mercy Physician GroupComment on above:Result Comment: Random Glucose Reference Range is dependent on time and content of last meal. Glucose of more than 200 mg/dL in a nonstressed, ambulatory subject supports the diagnosis of Diabetes Mellitus.PERFORMED BY:[address] [address] BARRETOPaulMAYURICH[place], [place] [phone] MEDICAL JULIAN PADILLA M.D.Performed By: #### GLULS ####Point of Care testing,Glucose [Mass/Vol]305 mg/dLNoAtrium Health Mercy Physician GroupComment on above:Result Comment: Random Glucose Reference Range is dependent on time and content of last meal. Glucose of more than 200 mg/dL in a nonstressed, ambulatory subject supports the diagnosis of Diabetes Mellitus.PERFORMED BY:[address] [address] BARRETOPaulMAYURICH[place], [place] [phone] MEDICAL JULIAN PADILLA M.D.Performed By: #### GLULS ####Point of Care testing, Glucose [Mass/Vol]163 mg/dLNoAtrium Health Mercy Physician GroupComment on above: Result Comment: Random Glucose Reference Range is dependent on time and content of last meal. Glucose of more than 200 mg/dL in a nonstressed, ambulatory subject supports the diagnosis of Diabetes Mellitus.PERFORMED BY:[address] [address] BARRETOPaulMAYUR[place], [place] [phone] MEDICAL JULIAN PADILLA M.D.Performed By: #### GLULS ####Point of Care testing,Glucose [Mass/Vol]109 mg/dLTampa Shriners Hospital Physician GroupComment on above:Result Comment: Random Glucose Reference Range is dependent on time and content of last meal. Glucose of more than 200 mg/dL in a nonstressed, ambulatory subject supports the diagnosis of Diabetes Mellitus.PERFORMED BY:[address] [address] BARRETOPaulMAYURICHERR[place], [place] [phone] MEDICAL JULIAN PADILLA M.D.Performed By: #### GLULS ####Point of Care testing,Glucose [Mass/volume] in Serum or Plasma Ordered By: Juice Mackenzie on 14-19-1445Refoffv [Mass/Vol]144 mg/zQOojg39-181 [facility] CenterComment on above:Result Comment: Random Glucose Reference Range is dependent on time and content of last meal. Glucose of more than 200 mg/dL in a nonstressed, ambulatory subject supports the diagnosis of Diabetes Mellitus. ADA recommended reference rangePerformed By: #### LIPID, A1C WTH eA, HS TROP, BMP, CBC, MG ####[address] [place] [address] USAHematocrit [Volume Fraction] of Blood by Automated countOrdered By: Juice Mackenzie on 52-57-9128Apsqqaqlih (Bld) [Volume fraction] 30.9 %Low34.0-46.4FMemorial Health SystemComment on above:Performed By: #### LIPID, A1C WTH eA, HS TROP, BMP, CBC, MG ####[address] [address] USAHemoglobin A1c/Hemoglobin.total in BloodOrdered By: Juice Mackenzie on 01-82-4707YuS0c (Bld) [Mass fraction]6.9 %High 4.3-5.6FMemorial Health SystemComment on above:Result Comment: Increased risk for diabetes: 5.7 - 6.4 diabetes: >6.4 glycemic control for adults with diabetes: <7.0Performed By: #### LIPID, A1C WTH eA, HS TROP, BMP, CBC, MG ####[address] [address] USAHemoglobin [Mass/volume] in BloodOrdered By: Juice Mackenzie on 04-08-2025 Hemoglobin (Bld) [Mass/Vol]9.9 g/dLLow11.8-15.4FMemorial Health System Comment on above:Performed By: #### LIPID, A1C WTH eA, HS TROP, BMP, CBC, MG ####[address] [place] [address] [place] Leukocytes [#/volume] corrected for nucleated erythrocytes in Blood by Automated counOrdered By: Juice Mackenzie on 69-48-9068AJY corrected for nucl RBC Auto (Bld) [#/Vol]7.1 10*3/uL3.8-11.6FMemorial Health SystemLeukocytes [#/volume] in Blood by Automated countOrdered By: Juice Mackenzie on 67-02-3072HAC (Bld) [#/Vol]7.1 10*3/uLNormal3.8-11.6FMemorial Health SystemComment on above:Performed By: #### LIPID, A1C WTH eA, HS TROP, BMP, CBC, MG ####[facility] [place] [address] USALipid Panelon 05-93-9677TOY Cholesterol,Xivzxjlmhy44 mg/dLNormal0-100[facility] Physician GroupComment on above:Result Comment: LDL ATP III CLASSIFICATION LDL less than 100 mg/dL Optimal LDL 100-129 mg/dL Near or above optimal LDL 130-159 mg/dL Borderline high LDL 160-189 mg/dL High LDL greater than 189 mg/dL Very highPerformed By: #### LIPID, A1C WTH eA, HS TROP, BMP, CBC, MG ####[facility] [place] [address] USATriglyceride w/Reflex 190 mg/dLHigh0-149[facility] Physician GroupComment on above:Result Comment: TRIG ATP III CLASSIFICATION TRIG less than 150 mg/dL Normal TRIG 150-199 mg/dL Borderline high TRIG 200-500 mg/dL High TRIG greater than 500 mg/dL Very high Standard traceable to the Center for Disease Conrtrol and Prevention (CDC) test method.Performed By: #### LIPID, A1C WTH eA, HS TROP, BMP, CBC, MG ####[facility] [place] [address] USAVLDL YPTKMRSICXZ59 mg/dLNormalThe [facility] Physician GroupComment on above:Performed By: #### LIPID, A1C WTH eA, HS TROP, BMP, CBC, MG ####[facility] [place] [address] USALymphocytes [#/volume] in Blood by Automated countOrdered By: Juice Mackenzie on 15-75-1363Jilbvpsoxdu (Bld) [#/Vol]1.2 10*3/uL Normal1.00-4.8[facility] Medical CenterComment on above:Performed By: #### LIPID, A1C WTH eA, HS TROP, BMP, CBC, MG ####[facility] [id number] USALymphocytes/100 leukocytes in Blood by Automated countOrdered By: Juice Mackenzie on 46-70-2759Crmuayjldew/100 WBC (Bld) 17.6 %Normal.[facility] Medical CenterComment on above:Performed By: #### LIPID, A1C WTH eA, HS TROP, BMP, CBC, MG ####[address] [place] [id number] [facility] [Entitic mass] by Automated count Ordered By: Juice Mackenzie on 20-11-8570CYD (RBC) [Entitic mass]33.1 pgNormal 24.7-34.3FMemorial Health SystemComment on above:Performed By: #### LIPID, A1C WTH eA, HS TROP, BMP, CBC, MG ####[address] [address] [facility] Auto (RBC) [Mass/Vol]Ordered By: Juice Mackenzie on 50-53-8083KZNQ (RBC) [Mass/Vol]32.0 g/dL32.0-35.0[facility]ic[facility] HospitalV [Entitic volume] by Automated countOrdered By: Juice Mackenzie on 02-70-2306CHL (RBC) [Entitic vol]103.5 tIOqyi88-706GmessndrmUniversity Hospitals Elyria Medical CenterComment on above:Performed By: #### LIPID, A1C WTH eA, HS TROP, BMP, CBC, MG ####[address] [address] [place] Magnesium [Mass/volume] in Serum or PlasmaOrdered By: Juice Mackenzie on 04-08-2025 Magnesium [Mass/Vol]2.0 mg/dLNormal1.9-2.7FMemorial Health System Comment on above:Performed By: #### LIPID, A1C WTH eA, HS TROP, BMP, CBC, MG ####[address] [place] [address] [place] Monocytes [#/volume] in Blood by Automated countOrdered By: Juice Mackenzie on 25-01-2667Puayyscfu (Bld) [#/Vol]0.7 10*3/uLNormal0.0-0.8[facility] CenterComment on above:Performed By: #### LIPID, A1C WTH eA, HS TROP, BMP, CBC, MG ####[address] [address] USAMonocytes/100 leukocytes in Blood by Automated countOrdered By: Juice Mackenzie on 57-33-3160Ueussmboo/100 WBC (Bld)9.5 %Normal.[facility] CenterComment on above:Performed By: #### LIPID, A1C WTH eA, HS TROP, BMP, CBC, MG ####[address] [address] USANeutrophils [#/volume] in Blood by Automated countOrdered By: Juice Mackenzie on 24-29-2567Ywaxbakuisx (Bld) [#/Vol]4.9 10*3/uLNormal1.8-7.7FMemorial Health SystemComment on above:Performed By: #### LIPID, A1C WTH eA, HS TROP, BMP, CBC, MG ####[address] [address] USANeutrophils/100 leukocytes in Blood by Automated countOrdered By: Juice Mackenzie on 39-58-5822Nklcombylry/100 WBC (Bld)69.6 %Normal.[facility] Medical CenterComment on above:Performed By: #### LIPID, A1C WTH eA, HS TROP, BMP, CBC, MG ####[address] [address] USANo Panel InformationOrdered By: Juice Mackenzie on .86 [facility] Medical CenterNucleated erythrocytes [Presence] in Blood by Automated countOrdered By: Juice Mackenzie on 90-46-0048Hnwkngist RBC Auto Ql (Bld) 0.2 /100{WBC}0-0.5FMemorial Health SystemPlatelet mean volume [Entitic volume] in Blood by Automated countOrdered By: Juice Mackenzie on 04-08-2025 Platelet mean volume (Bld) [Entitic vol]8.7 fLNormal6.3-10.7FMemorial Health SystemComment on above:Performed By: #### LIPID, A1C WTH eA, HS TROP, BMP, CBC, MG ####[address] [address] USAPlatelets [#/volume] in Blood by Automated countOrdered By: Juice Mackenzie on 43-74-4079Eossebpqv (Bld) [#/Vol]214 10*3/vTFreovx380-774DrrabozcuUniversity Hospitals Elyria Medical CenterComment on above:Performed By: #### LIPID, A1C WTH eA, HS TROP, BMP, CBC, MG ####[address] [address] USAPotassium [Moles/volume] in Serum or PlasmaOrdered By: Juice Mackenzie on 19-32-6377Abwqjnfnn [Moles/Vol]3.9 mmol/LNormal3.5-5.1FMemorial Health SystemComment on above:Performed By: #### LIPID, A1C WTH eA, HS TROP, BMP, CBC, MG ####[address] [address] USASerum or plasma anion gap determinationOrdered By: Juice Mackenzie on 49-96-8615Yxzgu gap [Moles/Vol]8.7 mmol/LNormal6.0-15.0[facility] CenterComment on above:Performed By: #### LIPID, A1C WTH eA, HS TROP, BMP, CBC, MG ####[address] [address] USASerum or plasma total cholesterol/high density lipoprotein (HDL) cholesterol mass ratOrdered By: Juice Mackenzie on 04-08-2025 Cholesterol.total/Cholesterol in HDL [Mass ratio]3.7 {ratio}Normal<5.0[facility] Medical CenterComment on above:Result Comment: PERFORMED BY:[address] [address] [address] [place], [place] [phone] MEDICAL JULIAN PADILLA M.D.Performed By: #### LIPID, A1C WTH eA, HS TROP, BMP, CBC, MG ####[address] [address] USASodium [Moles/volume] in Serum or PlasmaOrdered By: Juice Mackenzie on 31-97-7512Xvyuvc [Moles/Vol]139 mmol/IVdglpo805-318KvvgcjgarUniversity Hospitals Elyria Medical CenterComment on above:Performed By: #### LIPID, A1C WTH eA, HS TROP, BMP, CBC, MG ####[address] [address] [place] Triglyceride [Mass/volume] in Serum or PlasmaOrdered By: Juice Mackenzie on 04-41-5806Agqjtvvozphh [Mass/Vol]190 mg/dLHigh0-149[facility] Medical CenterTroponin I High Sensitivityon 59-91-0044Bbjrvsrg I High Gebbfxcshuc29Yqfm 0-15[facility] Physician GroupComment on above:Result Comment: The Troponin units of report have been changed to meet the Chest Pain Accreditation requirement, element EC5.M1l2. Troponin units are changed from pg/ml to ng/L. Also, the decimal is removed and results are in whole numbers.PERFORMED BY:[address] [address] METCALFBogdanMAYURICHERRYV[place]LE, [place] [phone] MEDICAL JULIAN PADILLA M.D.Performed By: #### LIPID, A1C WTH eA, HS TROP, BMP, CBC, MG ####[address] [address] USATroponin I High Ukeyeefgawh13Kav scale high0-15[facility] Physician GroupComment on above:Result Comment: Critical Result : Called to and read back by: LI LARWENCE at: 04/08/2025 01:19:37 by:[id number] The Troponin units of report have been changed to meet the Chest Pain Accreditation requirement, element EC5.M1l2. Troponin units are changed from pg/ml to ng/L. Also, the decimal is removed and results are in whole numbers.PERFORMED BY:[facility] [place] [address] [place], [place] [phone] MEDICAL DIRECTORALINA PADILLA M.D.Performed By: #### HS TROP ####[facility] [place] [address] USATroponin I.cardiac [Mass/volume] in Serum or Plasma by Detection limit <= 0.01 ng/mLOrdered By: Juice Mackenzie on 93-39-4179Ezuvqvlb I.cardiac DL <= 0.01 ng/mL [Mass/Vol]48 ng/LHigh0[facility] Medical CenterUrea nitrogen [Mass/volume] in Serum or PlasmaOrdered By: Juice Mackenzie on 04-08-2025 Urea nitrogen [Mass/Vol]30 mg/dLGrafton City Hospital7[facility] Medical CenterComment on above:Performed By: #### LIPID, A1C WTH eA, HS TROP, BMP, CBC, MG ####[facility] [address] [place] [address] [place] Basophils Auto (Bld) [#/Vol]Ordered By: Chao Chapman on 00-95-0171Wdajqiail (Bld) [#/Vol]0.0 10 3/uL0.0-0.1FMemorial Health SystemBasophils/100 WBC Auto (Bld)Ordered By: Chao Chapman on 50-35-6824Hnghcqliv/100 WBC (Bld)0.2 %0.2-2.0[facility] Medical CenterEosinophils/100 WBC Auto (Bld)Ordered By: Chao Chapman on 87-72-0202Quoqhcogpha/100 WBC (Bld)1.3 %0.9-7.0[facility] Medical CenterErythrocyte distribution width Auto (RBC) [Ratio]Ordered By: Chao Chapman on 00-05-7730Mpalfmuqlku distribution width (RBC) [Ratio]17.3 %High11.0-15.0[facility] Medical CenterGlomerular filtration rate (GFR) estimation in non- AmericanOrdered By: Gary Lizama on 04-07-2025 GFR/1.73 sq M.predicted among non-blacks MDRD (S/P/Bld) [Vol rate/Area]26 mL/min/{1.73_m2}Low>=60 mL/min/1.73m 2FMemorial Health System Hematocrit Auto (Bld) [Volume fraction]Ordered By: Chao Chapman on 04-07-2025 Hematocrit (Bld) [Volume fraction]33.8 %Low36.0-48.0[facility] Medical CenterHemoglobin [Mass/volume] in BloodOrdered By: Chao Chapman on 04-07-2025 Hemoglobin (Bld) [Mass/Vol]10.0 g/dLLow12.0-16.0[facility] Medical CenterLeukocytes [#/volume] corrected for nucleated erythrocytes in Blood by Automated counOrdered By: Chao Chapman on 49-75-9860TZT corrected for nucl RBC Auto (Bld) [#/Vol]9.2 10 3/uL4.0-11.0[facility] Lymphocytes Auto (Bld) [#/Vol]Ordered By: Chao Chapman on 04-07-2025 Lymphocytes (Bld) [#/Vol]1.2 10 3/uL1.2-3.8[facility] Lymphocytes/100 WBC Auto (Bld)Ordered By: Chao Chapman on 04-07-2025 Lymphocytes/100 WBC (Bld)13.4 %Low20.5-60.0[facility] HospitalH Auto (RBC) [Entitic mass]Ordered By: Chao Chapman on 34-03-8035DMT (RBC) [Entitic mass]32.3 pg26.7-34.0[facility] HospitalHC Auto (RBC) [Mass/Vol]Ordered By: Chao Chapman on 45-63-2577ODVN (RBC) [Mass/Vol]29.6 g/dL Low29.9-35.2FMemorial Health SystemMCV Auto (RBC) [Entitic vol]Ordered By: Chao Chapman on 25-44-9606SNX (RBC) [Entitic vol]109.0 iIJwzz74.0-99.0 [facility] Medical CenterMonocytes Auto (Bld) [#/Vol]Ordered By: Chao Chapman on 67-64-9159Xbcembefu (Bld) [#/Vol]0.6 10 3/uL0.3-0.8[facility] Medical CenterMonocytes/100 WBC Auto (Bld)Ordered By: Chao Chapman on 27-68-2252Wyqrvotcq/100 WBC (Bld)6.0 %1.7-12.0[facility] Neutrophils Auto (Bld) [#/Vol]Ordered By: Chao Chapman on 04-07-2025 Neutrophils (Bld) [#/Vol]7.2 10 3/uLHigh1.4-6.5FMemorial Health System Neutrophils/100 WBC Auto (Bld)Ordered By: Chao Chapman on 04-07-2025 Neutrophils/100 WBC (Bld)78.6 %High43.0-75.0[facility] CenterNo Panel InformationOrdered By: Gary Lizama on 21-27-829709.6 pg/mLCritically high4.0-51.3FMemorial Health System6616.0 pg/mLCritically high<=1800.0 [facility]18.3FMemorial Health System34.0 mg/dL High7.0-18.0[facility]8.9 mg/dL8.5-10.1FMemorial Health System101 mmol/X37-397FaopiljztUniversity Hospitals Elyria Medical Center30.3 mmol/L 21.0-32.0[facility]1.86 mg/dLHigh0.55-1.02[facility]32Low>=60 mL/min/1.73m 2FMemorial Health System 211 mg/xNQdkm08-133PjyuvboqcUniversity Hospitals Elyria Medical Center4.7 mmol/L3.5-5.1FMemorial Health System136 mmol/E939-346LvpswfagnUniversity Hospitals Elyria Medical CenterNo Panel InformationOrdered By: Chao Chapman on 50.1 10 3/uL0.0-0.7 [facility]0.05 10 3/uLHigh0.00-0.03[facility]0.5 %0.0-0.5FMemorial Health SystemPlatelet mean volume Auto (Bld) [Entitic vol]Ordered By: Chao Chapman on 07-11-3864Hxbbbyip mean volume (Bld) [Entitic vol]10.9 fL9.5-13.5FMemorial Health System Platelets Auto (Bld) [#/Vol]Ordered By: Chao Chapman on 90-82-3645Nhzejyqvb (Bld) [#/Vol]225 10 3/mP022-946GfovzivomUniversity Hospitals Elyria Medical CenterRBC Auto (Bld) [#/Vol]Ordered By: Chao Chapman on 15-30-3821XFM (Bld) [#/Vol]3.10 10 6/uLLow 4.20-5.40Kn[facility] Community Hospitalerum or plasma anion gap determinationOrdered By: Gary Lizama on 37-35-7103Wibgd gap [Moles/Vol]9.4 mmol/LFMemorial Health SystemGlucose Poct Glucometerson 04-04-2025 Glucose [Mass/Vol]155 mg/dLNoAtrium Health Mercy Physician GroupComment on above: Result Comment: Random Glucose Reference Range is dependent on time and content of last meal. Glucose of more than 200 mg/dL in a nonstressed, ambulatory subject supports the diagnosis of Diabetes Mellitus.PERFORMED BY:[address] [address] [address] [place], [place] [phone] MEDICAL JULIAN PADILLA M.D.Performed By: #### GLULS ####Point of Care testing,Glucose [Mass/Vol]166 mg/dLNoAtrium Health Mercy Physician GroupComment on above:Result Comment: Random Glucose Reference Range is dependent on time and content of last meal. Glucose of more than 200 mg/dL in a nonstressed, ambulatory subject supports the diagnosis of Diabetes Mellitus.PERFORMED BY:[address] [address] [place], [place] [phone] MEDICAL JULIAN PADILLA M.D.Performed By: #### GLULS ####Point of Care testing,Glucose Poct Glucometerson 04-03-2025 Glucose [Mass/Vol]141 mg/dLTampa Shriners Hospital Physician GroupComment on above: Result Comment: Random Glucose Reference Range is dependent on time and content of last meal. Glucose of more than 200 mg/dL in a nonstressed, ambulatory subject supports the diagnosis of Diabetes Mellitus.PERFORMED BY:[address] TEAYaelPaulMAYURI, [place] [phone] MEDICAL JULIAN PADILLA M.D.Performed By: #### GLULS ####Point of Care testing,Glucose [Mass/Vol]187 mg/dLTampa Shriners Hospital Physician GroupComment on above:Result Comment: Random Glucose Reference Range is dependent on time and content of last meal. Glucose of more than 200 mg/dL in a nonstressed, ambulatory subject supports the diagnosis of Diabetes Mellitus.PERFORMED BY:[address] [address] [address] LIN[place], [place] [phone] MEDICAL JULIAN PADILLA M.D.Performed By: #### GLULS ####Point of Care testing,Tevwvzv9Icp0: Cleaned MeterTampa Shriners Hospital Physician GroupComment on above:Result Comment: PERFORMED BY:[address] [address] [address]CA[address] GARZAUSKYCHERRYV[place]LE, [place] [phone] MEDICAL JULIAN PADILLA M.D.Performed By: #### GLULS ####Point of Care testing,Glucose [Mass/Vol]332 mg/dLTampa Shriners Hospital Physician GroupComment on above:Result Comment: Random Glucose Reference Range is dependent on time and content of last meal. Glucose of more than 200 mg/dL in a nonstressed, ambulatory subject supports the diagnosis of Diabetes Mellitus.Performed By: #### GLULS ####Point of Care testing,Ltrkuvw9Rxw9: Cleaned MeterNoAtrium Health Mercy Physician GroupComment on above:Result Comment: PERFORMED BY:[address] [place], [place] [phone] MEDICAL JULIAN PADILLA M.D.Performed By: #### GLULS ####Point of Care testing,Glucose [Mass/Vol]191 mg/dLTampa Shriners Hospital Physician GroupComment on above:Result Comment: Random Glucose Reference Range is dependent on time and content of last meal. Glucose of more than 200 mg/dL in a nonstressed, ambulatory subject supports the diagnosis of Diabetes Mellitus.Performed By: #### GLULS ####Point of Care testing,Eciuqhz1Wkz3: Cleaned MeterNoAtrium Health Mercy Physician GroupComment on above:Result Comment: PERFORMED BY:[address]CA[address] BARRETOPaulMAYURI, [place] [phone] MEDICAL JULIAN PADILLA M.D.Performed By: #### GLULS ####Point of Care testing,Glucose [Mass/Vol]81 mg/dLNoAtrium Health Mercy Physician GroupComment on above:Result Comment: Random Glucose Reference Range is dependent on time and content of last meal. Glucose of more than 200 mg/dL in a nonstressed, ambulatory subject supports the diagnosis of Diabetes Mellitus.Performed By: #### GLULS ####Point of Care testing,Glucose [Mass/Vol]67 mg/dLTampa Shriners Hospital Physician GroupComment on above:Result Comment: Random Glucose Reference Range is dependent on time and content of last meal. Glucose of more than 200 mg/dL in a nonstressed, ambulatory subject supports the diagnosis of Diabetes Mellitus.PERFORMED BY:[address] [place], [place] [phone] MEDICAL JULIAN PADILLA M.D.Performed By: #### GLULS ####Point of Care testing,Rpeovfn7Pbp9: Cleaned MeterTampa Shriners Hospital Physician GroupComment on above:Result Comment: PERFORMED BY:[address] BARRETOPaulMAYURICHERRY[place], [place] [phone] MEDICAL JULIAN PADILLA M.D.Performed By: #### GLULS ####Point of Care testing,Glucose [Mass/Vol]61 mg/dLNoAtrium Health Mercy Physician GroupComment on above:Result Comment: Random Glucose Reference Range is dependent on time and content of last meal. Glucose of more than 200 mg/dL in a nonstressed, ambulatory subject supports the diagnosis of Diabetes Mellitus.Performed By: #### GLULS ####Point of Care testing,Glucose Poct Glucometerson 29-50-9006Ilvstbo [Mass/Vol]105 mg/dLNoAtrium Health Mercy Physician GroupComment on above:Result Comment: Random Glucose Reference Range is dependent on time and content of last meal. Glucose of more than 200 mg/dL in a nonstressed, ambulatory subject supports the diagnosis of Diabetes Stacy litus.PERFORMED BY:[address] [place], [place] [phone] MEDICAL JULIAN PADILLA M.D.Performed By: #### GLULS ####Point of Care testing,Glucose [Mass/Vol]175 mg/dLTampa Shriners Hospital Physician GroupComment on above:Result Comment: Random Glucose Reference Range is dependent on time and content of last meal. Glucose of more than 200 mg/dL in a nonstressed, ambulatory subject supports the diagnosis of Diabetes Mellitus.PERFORMED BY:[address] [place], [place] [phone] MEDICAL JULIAN PADILLA M.D.Performed By: #### GLULS ####Point of Care testing,Glucose [Mass/Vol]178 mg/dLTampa Shriners Hospital Physician GroupComment on above:Result Comment: Random Glucose Reference Range is dependent on time and content of last meal. Glucose of more than 200 mg/dL in a nonstressed, ambulatory subject supports the diagnosis of Diabetes Mellitus.PERFORMED BY:[address] [place], [place] [phone] MEDICAL JULIAN PADILLA M.D.Performed By: #### GLULS ####Point of Care testing, Glucose [Mass/Vol]146 mg/dLTampa Shriners Hospital Physician GroupComment on above: Result Comment: Random Glucose Reference Range is dependent on time and content of last meal. Glucose of more than 200 mg/dL in a nonstressed, ambulatory subject supports the diagnosis of Diabetes Mellitus.PERFORMED BY:[place] [address] [place]RET[place]aul[place], [place] [phone] MEDICAL JULIAN PADILLA M.D.Performed By: #### GLULS ####Point of Care testing,Wdgycbd9Vdn2: Cleaned MeterNormUF Health Leesburg Hospital Physician GroupComment on above:Result Comment: PERFORMED BY:[address] BARRETOPaulMAYURI, [place] [phone] MEDICAL JULIAN PADILLA M.D.Performed By: #### GLULS ####Point of Care testing,Glucose [Mass/Vol]74 mg/dLTampa Shriners Hospital Physician GroupComment on above:Result Comment: Random Glucose Reference Range is dependent on time and content of last meal. Glucose of more than 200 mg/dL in a nonstressed, ambulatory subject supports the diagnosis of Diabetes Mellitus.Performed By: #### GLULS ####Point of Care testing,Gazqgid9Mxu3: Cleaned MeterNoAtrium Health Mercy Physician GroupComment on above:Result Comment: PERFORMED BY:[place] [address] BARRET[place]aul[place], [place] [phone] MEDICAL JULIAN PADILLA M.D.Performed By: #### GLULS ####Point of Care testing,Glucose [Mass/Vol]94 mg/dLNoAtrium Health Mercy Physician GroupComment on above:Result Comment: Random Glucose Reference Range is dependent on time and content of last meal. Glucose of more than 200 mg/dL in a nonstressed, ambulatory subject supports the diagnosis of Diabetes Mellitus.Performed By: #### GLULS ####Point of Care testing,Pwluhxj9Zpb8: Cleaned MeterNoAtrium Health Mercy Physician GroupComment on above:Result Comment: PERFORMED BY:[place] [address] BAR[place]aul[place], [place] [phone] MEDICAL JULIAN PADILLA M.D.Performed By: #### GLULS ####Point of Care testing,Glucose [Mass/Vol]75 mg/dLTampa Shriners Hospital Physician GroupComment on above:Result Comment: Random Glucose Reference Range is dependent on time and content of last meal. Glucose of more than 200 mg/dL in a nonstressed, ambulatory subject supports the diagnosis of Diabetes Mellitus.Performed By: #### GLULS ####Point of Care testing,Ebvlbwt1Dlc8: Cleaned MeterNoAtrium Health Mercy Physician GroupComment on above:Result Comment: PERFORMED BY:[address] [place]FA[place]SD[place], [place] [phone] MEDICAL DIRECTORALINA PADILLA M.D.Performed By: #### GLULS ####Point of Care testing,Glucose [Mass/Vol]62 mg/dLTampa Shriners Hospital Physician GroupComment on above:Result Comment: Random Glucose Reference Range is dependent on time and content of last meal. Glucose of more than 200 mg/dL in a nonstressed, ambulatory subject supports the diagnosis of Diabetes Mellitus.Performed By: #### GLULS ####Point of Care testing,Basic Metabolic Panelon 50-82-2094Tstdd gap [Moles/Vol]8.9 mmol/LNormal 6.0-15.0[facility] Physician GroupComment on above:Performed By: #### BMP ####[address] [address] USACalcium [Mass/Vol]8.6 mg/dLNormal8.6-10.3[facility] Physician GroupComment on above: Performed By: #### BMP ####[facility] [place] [address] USAChloride [Moles/Vol]103 mmol/XNcowes72-270Ffw [facility] Physician GroupComment on above:Performed By: #### BMP ####[address] [address] USACO2 [Moles/Vol]29.8 mmol/AEivoue48.0-31.0[facility] Physician GroupComment on above:Performed By: #### BMP ####[address] [address] USACreatinine [Mass/Vol]1.69 mg/dLHigh0.60-1.20[facility]ician Group Comment on above:Performed By: #### BMP ####[address] [address] USACreatinine Clr Calc Mjhbuarb31.05NormalThe [facility] Physician GroupComment on above:Result Comment: PERFORMED BY:[address] [place], [place] [phone] MEDICAL JULIAN PADILLA M.D.Performed By: #### BMP ####[address] [address] USAGFR/1.73 sq M.predicted MDRD (S/P/Bld) [Vol rate/Area]30.531 mL/min/{1.73_m2}NormalThe [facility] Physician [facility] HospitalComment on above:Performed By: #### BMP ####[address] [address] USAGlucose [Mass/Vol]120 mg/fXSogb00-624Kwa [facility] Physician GroupComment on above:Result Comment: Random Glucose Reference Range is dependent on time and content of last meal. Glucose of more than 200 mg/dL in a nonstressed, ambulatory subject supports the diagnosis of Diabetes Mellitus. ADA recommended reference rangePerformed By: #### BMP ####[address] [address] USAPotassium [Moles/Vol]4.7 mmol/LNormal3.5-5.1[facility] Comment on above:Performed By: #### BMP ####[address] [address] USASodium [Moles/Vol]137 mmol/JQkiriw000-793Wdc [facility] Physician GroupComment on above:Performed By: #### BMP ####[address] [address] USAUrea nitrogen [Mass/Vol]52 mg/dLHigh7-25The [facility] Physician GroupComment on above: Performed By: #### BMP ####[address] [address] USAGlucose Poct Glucometerson 68-32-1225Hekgxat5Css3: Cleaned MeterNoUC West Chester HospitalComment on above:Result Comment: PERFORMED BY:[address] [address] LINFA[place], [place] [phone] MEDICAL JULIAN PADILLA M.D.Performed By: #### GLULS ####Point of Care testing,Glucose [Mass/Vol]161 mg/dLTampa Shriners Hospital Physician GroupComment on above:Result Comment: Random Glucose Reference Range is dependent on time and content of last meal. Glucose of more than 200 mg/dL in a nonstressed, ambulatory subject supports the diagnosis of Diabetes Mellitus.Performed By: #### GLULS ####Point of Care testing,Glucose [Mass/Vol]108 mg/dLTampa Shriners Hospital Physician GroupComment on above:Result Comment: Random Glucose Reference Range is dependent on time and content of last meal. Glucose of more than 200 mg/dL in a nonstressed, ambulatory subject supports the diagnosis of Diabetes Mellitus.PERFORMED BY:[place] [address] LINFA[place], [place] [phone] MEDICAL JULIAN PADILLA M.D.Performed By: #### GLULS ####Point of Care testing, Glucose [Mass/Vol]62 mg/dLTampa Shriners Hospital Physician GroupComment on above: Result Comment: Random Glucose Reference Range is dependent on time and content of last meal. Glucose of more than 200 mg/dL in a nonstressed, ambulatory subject supports the diagnosis of Diabetes Mellitus.PERFORMED BY:[address] [place]FA[place], [place] [phone] MEDICAL JULIAN PADILLA M.D.Performed By: #### GLULS ####Point of Care testing,Czjufuy9WdjeuqOvpTampa Shriners Hospital Physician GroupComment on above:Result Comment: Glu2: FOLLOW HYPOGLYCEMICPERFORMED BY:[place] [address] [place], [place] [phone] MEDICAL DIRECTORALINA PADILLA M.D.Performed By: #### GLULS ####Point of Care testing, Glucose [Mass/Vol]59 mg/dLOff scale [facility] Physician GroupComment on above:Result Comment: Random Glucose Reference Range is dependent on time and content of last meal. Glucose of more than 200 mg/dL in a nonstressed, ambulatory subject supports the diagnosis of Diabetes Mellitus.Performed By: #### GLULS ####Point of Care testing,Szewvtb3Zua4: Cleaned MeterNoAtrium Health Mercy Physician GroupComment on above:Result Comment: PERFORMED BY:[address] [place], [place] [phone] MEDICAL JULIAN PADILLA M.D.Performed By: #### GLULS ####Point of Care testing,Glucose [Mass/Vol]97 mg/dLTampa Shriners Hospital Physician GroupComment on above:Result Comment: Random Glucose Reference Range is dependent on time and content of last meal. Glucose of more than 200 mg/dL in a nonstressed, ambulatory subject supports the diagnosis of Diabetes Mellitus.Performed By: #### GLULS ####Point of Care testing,Uevrkzi0Thw7: Cleaned MeterTampa Shriners Hospital Physician GroupComment on above:Result Comment: PERFORMED BY:[address] [place], [place] [phone] MEDICAL JULIAN PADILLA M.D.Performed By: #### GLULS ####Point of Care testing,Glucose [Mass/Vol]128 mg/dLTampa Shriners Hospital Physician GroupComment on above:Result Comment: Random Glucose Reference Range is dependent on time and content of last meal. Glucose of more than 200 mg/dL in a nonstressed, ambulatory subject supports the diagnosis of Diabetes Mellitus.Performed By: #### GLULS ####Point of Care testing,Glucose [Mass/Vol]121 mg/dLTampa Shriners Hospital Physician GroupComment on above:Result Comment: Random Glucose Reference Range is dependent on time and content of last meal. Glucose of more than 200 mg/dL in a nonstressed, ambulatory subject supports the diagnosis of Diabetes Mellitus.PERFORMED BY:[place] [address]RET[place], [place] [phone] MEDICAL JULIAN PADILLA M.D.Performed By: #### GLULS ####Point of Care testing,Glucose [Mass/Vol]79 mg/dLTampa Shriners Hospital Physician GroupComment on above:Result Comment: Random Glucose Reference Range is dependent on time and content of last meal. Glucose of more than 200 mg/dL in a nonstressed, ambulatory subject supports the diagnosis of Diabetes Mellitus.PERFORMED BY:[address] [place], [place] [phone] MEDICAL JULIAN PADILLA M.D.Performed By: #### GLULS ####Point of Care testing, Glucose [Mass/Vol]64 mg/dLNoAtrium Health Mercy Physician GroupComment on above: Result Comment: Random Glucose Reference Range is dependent on time and content of last meal. Glucose of more than 200 mg/dL in a nonstressed, ambulatory subject supports the diagnosis of Diabetes Mellitus.PERFORMED BY:[place] [address] [place], [place] [phone] MEDICAL JULIAN PADILLA M.D.Performed By: #### GLULS ####Point of Care testing,Glucose [Mass/Vol]140 mg/dLTampa Shriners Hospital Physician GroupComment on above:Result Comment: Random Glucose Reference Range is dependent on time and content of last meal. Glucose of more than 200 mg/dL in a nonstressed, ambulatory subject supports the diagnosis of Diabetes Mellitus.PERFORMED BY:[address] [place], [place] [phone] CHRISTOPHER PADILLA M.D.Performed By: #### GLULS ####Point of Care testing,B-Type Natriuretic Peptideon 03-31-2025 Natriuretic peptide B (Bld) [Mass/Vol]791.0 pg/mLGrafton City Hospital5-100[facility] Physician GroupComment on above:Result Comment: PERFORMED BY:[address] [place], [place] [phone] MEDICAL JULIAN PADILLA M.D.Performed By: #### BNP, CBC ####[address] [address] USAComplete Blood Count Auto Diff on 38-00-4314Ddccbusgf (Bld) [#/Vol]0.1 10*3/uLNormal0.0-0.2[facility] Physician GroupComment on above:Result Comment: PERFORMED BY:[address] [place], [place] [phone] MEDICAL JULIAN PADILLA M.D.Performed By: #### BNP, CBC ####[address] [address] USABasophils/100 WBC (Bld)0.5 % Normal.[facility] Physician GroupComment on above:Performed By: #### BNP, CBC ####[address] [address] [place] Eosinophils (Bld) [#/Vol]0.0 10*3/uLNormal0.0-0.45[facility] Comment on above:Performed By: #### BNP, CBC ####[address] [address] USAEosinophils/100 WBC (Bld)0.2 %Normal. [facility] Physician GroupComment on above:Performed By: #### BNP, CBC ####[address] [address] [place] Erythrocyte distribution width (RBC) [Ratio]17.6 %High11.9-15.3[facility] Physician GroupComment on above:Performed By: #### BNP, CBC ####[address] [address] USAHematocrit (Bld) [Volume fraction]30.6 %Low34.0-46.4[facility] Physician GroupComment on above:Performed By: #### BNP, CBC ####[place] [address] USAHemoglobin (Bld) [Mass/Vol]9.7 g/dLLow11.8-15.4[facility] Physician GroupComment on above:Performed By: #### BNP, CBC ####[place] [address] [place] Lymphocytes (Bld) [#/Vol]1.1 10*3/uLNormal1.00-4.8[facility] Comment on above:Performed By: #### BNP, CBC ####[place] [id number] USALymphocytes/100 WBC (Bld)8.2 %Normal. [facility] Physician GroupComment on above:Performed By: #### BNP, CBC ####[address] StreetMCH (RBC) [Entitic mass]32.6 bbOpdqgc13.7-34.3[facility] Physician GroupComment on above:Performed By: #### BNP, CBC ####[place] [address] USAMCV (RBC) [Entitic vol]103.0 vSPumj15-387Dym [facility] Physician GroupComment on above:Performed By: #### BNP, CBC ####[place] [address] USAMean Corpuscular HGB Conc31.7 g/dLLow32.0-35.0[facility] Physician GroupComment on above:Performed By: #### BNP, CBC ####[place] [address] USAMonocytes (Bld) [#/Vol]0.7 10*3/uLNormal0.0-0.8[facility] Physician GroupComment on above:Performed By: #### BNP, CBC ####[place] [address] [place] Monocytes/100 WBC (Bld)5.6 %Normal.[facility] Physician GroupComment on above:Performed By: #### BNP, CBC ####[place] [address] USANeutrophils (Bld) [#/Vol]11.2 10*3/uLHigh1.8-7.7[facility] Physician GroupComment on above:Performed By: #### BNP, CBC ####[place] [address] [place] Neutrophils/100 WBC (Bld)85.5 %Normal.[facility] Physician GroupComment on above:Performed By: #### BNP, CBC ####[place] [address] USANRBC%0.2 /100{WBC}Normal0-0.5The [facility] Physician GroupComment on above:Performed By: #### BNP, CBC ####[place] [address] USAPlatelet mean volume (Bld) [Entitic vol]9.4 fLNormal6.3-10.7[facility] Physician GroupComment on above: Performed By: #### BNP, CBC ####[place] [address] USAPlatelets (Bld) [#/Vol]200 10*3/jIBswiro006-983Fmi [facility] Physician GroupComment on above:Performed By: #### BNP, CBC ####[place] [address] USARBC (Bld) [#/Vol]2.97 10*6/uLLow3.60-5.00[facility] Physician GroupComment on above:Performed By: #### BNP, CBC ####[place] [address] USAWBC (Bld) [#/Vol]13.1 10*3/uLHigh3.8-11.6[facility] Physician GroupComment on above:Performed By: #### BNP, CBC ####[place] [address] USAWhite Blood Count13.1 [CFU]/mLHigh3.8-11.6[facility] Physician GroupComment on above:Performed By: #### BNP, CBC ####[address] [address] USAGlucose Poct Glucometerson 31-79-1005Ocbdkwh [Mass/Vol]264 mg/dLNoAtrium Health Mercy Physician [facility] HospitalComment on above:Result Comment: Random Glucose Reference Range is dependent on time and content of last meal. Glucose of more than 200 mg/dL in a nonstressed, ambulatory subject supports the diagnosis of Diabetes Mellitus.PERFORMED BY:[address] [place], [place] [phone] MEDICAL JULIAN PADILLA M.D.Performed By: #### GLULS ####Point of Care testing, Glucose [Mass/Vol]263 mg/dLTampa Shriners Hospital Physician GroupComment on above: Result Comment: Random Glucose Reference Range is dependent on time and content of last meal. Glucose of more than 200 mg/dL in a nonstressed, ambulatory subject supports the diagnosis of Diabetes Mellitus.PERFORMED BY:[address] [place], [place] [phone] MEDICAL JULIAN PADILLA M.D.Performed By: #### GLULS ####Point of Care testing,Glucose [Mass/Vol]126 mg/dLTampa Shriners Hospital Physician GroupComment on above:Result Comment: Random Glucose Reference Range is dependent on time and content of last meal. Glucose of more than 200 mg/dL in a nonstressed, ambulatory subject supports the diagnosis of Diabetes Mellitus.PERFORMED BY:[address] [place], [place] [phone] MEDICAL JULIAN PADILLA M.D.Performed By: #### GLULS ####Point of Care testing,Znqtxvi0Qlr7: Cleaned MeterNoAtrium Health Mercy Physician [facility] HospitalComment on above:Result Comment: PERFORMED BY:[address] [place]RET[place]aulMA[place], [place] [phone] MEDICAL JULIAN PADILLA M.D.Performed By: #### GLULS ####Point of Care testing,Glucose [Mass/Vol]120 mg/dLTampa Shriners Hospital Physician GroupComment on above:Result Comment: Random Glucose Reference Range is dependent on time and content of last meal. Glucose of more than 200 mg/dL in a nonstressed, ambulatory subject supports the diagnosis of Diabetes Mellitus.Performed By: #### GLULS ####Point of Care testing,Glucose [Mass/Vol]68 mg/dLTampa Shriners Hospital Physician GroupComment on above:Result Comment: Random Glucose Reference Range is dependent on time and content of last meal. Glucose of more than 200 mg/dL in a nonstressed, ambulatory subject supports the diagnosis of Diabetes Mellitus.PERFORMED BY:[address] [place], [place] [phone] MEDICAL DIRECTORALINA PADILLA M.D.Performed By: #### GLULS ####Point of Care testing,Glucose [Mass/Vol]61 mg/dLTampa Shriners Hospital Physician GroupComment on above:Result Comment: Random Glucose Reference Range is dependent on time and content of last meal. Glucose of more than 200 mg/dL in a nonstressed, ambulatory subject supports the diagnosis of Diabetes Mellitus.PERFORMED BY:[place] [address] LIN[place], [place] [phone] MEDICAL JULIAN PADILLA M.D.Performed By: #### GLULS ####Point of Care testing, Glucose Poct Glucometerson 86-12-2529Hzgtyks [Mass/Vol]288 mg/dLTampa Shriners Hospital Physician GroupComment on above:Result Comment: Random Glucose Reference Range is dependent on time and content of last meal. Glucose of more than 200 mg/dL in a nonstressed, ambulatory subject supports the diagnosis of Diabetes Mellitus.PERFORMED BY:[address] LIN[place], [place] [phone] MEDICAL JULIAN PADILLA M.D.Performed By: #### GLULS ####Point of Care testing,Glucose [Mass/Vol]216 mg/dLTampa Shriners Hospital Physician GroupComment on above:Result Comment: Random Glucose Reference Range is dependent on time and content of last meal. Glucose of more than 200 mg/dL in a nonstressed, ambulatory subject supports the diagnosis of Diabetes Mellitus.PERFORMED BY:[place] [address] [place], [place] [phone] MEDICAL JULIAN PADILLA M.D.Performed By: #### GLULS ####Point of Care testing, Qvhsxhe7Lbg1: Cleaned MeterTampa Shriners Hospital Physician GroupComment on above: Result Comment: PERFORMED BY:[place] [address] [place], [place] [phone] MEDICAL JULIAN PADILLA M.D.Performed By: #### GLULS ####Point of Care testing,Glucose [Mass/Vol]109 mg/dLTampa Shriners Hospital Physician GroupComment on above:Result Comment: Random Glucose Reference Range is dependent on time and content of last meal. Glucose of more than 200 mg/dL in a nonstressed, ambulatory subject supports the diagnosis of Diabetes Mellitus.Performed By: #### GLULS ####Point of Care testing,Glucose [Mass/Vol]108 mg/dLTampa Shriners Hospital Physician GroupComment on above:Result Comment: Random Glucose Reference Range is dependent on time and content of last meal. Glucose of more than 200 mg/dL in a nonstressed, ambulatory subject supports the diagnosis of Diabetes Mellitus.PERFORMED BY:[address] [address] [place], [place] [phone] MEDICAL JULIAN PADILLA M.D.Performed By: #### GLULS ####Point of Care testing,Glucose [Mass/Vol]222 mg/dLTampa Shriners Hospital Physician GroupComment on above:Result Comment: Random Glucose Reference Range is dependent on time and content of last meal. Glucose of more than 200 mg/dL in a nonstressed, ambulatory subject supports the diagnosis of Diabetes Mellitus.PERFORMED BY:[place] [address] [place], [place] [phone] MEDICAL JULIAN PADILLA M.D.Performed By: #### GLULS ####Point of Care testing,BioFire Not Detectedon 72-77-2760DbqVroc Not DetectedNot detectedNormalNot DetecteThe [facility] Physician GroupComment on above:Result Comment: This is a duplicate RP2.1 COVID (PCR) result to be used for statistical tracking purpose only.PERFORMED BY:[address] [place], [place] [phone] 7PATHOLOGIST MEDICAL JULIAN PADILLA M.D.Performed By: #### BIOFIRECOVNOTDE, RESP PANEL UPP. ####[address] [address] USAGlucose Poct Glucometerson 09-71-6871Xtbthos6Ekt6: Cleaned MeterNoAtrium Health Mercy Physician GroupComment on above:Result Comment: PERFORMED BY:[address] [place], [place] [phone] MEDICAL JULIAN PADILLA M.D.Performed By: #### GLULS ####Point of Care testing,Glucose [Mass/Vol]326 mg/dLTampa Shriners Hospital Physician GroupComment on above:Result Comment: Random Glucose Reference Range is dependent on time and content of last meal. Glucose of more than 200 mg/dL in a nonstressed, ambulatory subject supports the diagnosis of Diabetes Mellitus.Performed By: #### GLULS ####Point of Care testing,Glucose [Mass/Vol]258 mg/dLTampa Shriners Hospital Physician GroupComment on above:Result Comment: Random Glucose Reference Range is dependent on time and content of last meal. Glucose of more than 200 mg/dL in a nonstressed, ambulatory subject supports the diagnosis of Diabetes Mellitus.PERFORMED BY:[place] [address] [place], [place] [phone] MEDICAL JULIAN PADILLA M.D.Performed By: #### GLULS ####Point of Care testing, Glucose [Mass/Vol]145 mg/dLNoAtrium Health Mercy Physician GroupComment on above: Result Comment: Random Glucose Reference Range is dependent on time and content of last meal. Glucose of more than 200 mg/dL in a nonstressed, ambulatory subject supports the diagnosis of Diabetes Mellitus.PERFORMED BY:[address] [place], [place] [phone] MEDICAL JULIAN PADILLA M.D.Performed By: #### GLULS ####Point of Care testing,Glucose [Mass/Vol]80 mg/dLTampa Shriners Hospital Physician GroupComment on above:Result Comment: Random Glucose Reference Range is dependent on time and content of last meal. Glucose of more than 200 mg/dL in a nonstressed, ambulatory subject supports the diagnosis of Diabetes Mellitus.PERFORMED BY:[address] [place], [place] [phone] MEDICAL JULIAN PADILLA M.D.Performed By: #### GLULS ####Point of Care testing,Glucose [Mass/Vol]66 mg/dLNoAtrium Health Mercy Physician GroupComment on above:Result Comment: Random Glucose Reference Range is dependent on time and content of last meal. Glucose of more than 200 mg/dL in a nonstressed, ambulatory subject supports the diagnosis of Diabetes Mellitus.PERFORMED BY:[address] [place], [place] [phone] MEDICAL JULIAN PADILLA M.D.Performed By: #### GLULS ####Point of Care testing,Respiratory (Upper) Panel, PCRon 28-94-9327Zcznxcziufh (Upper) Panel, PCRNoAtrium Health Mercy Physician GroupComment on above:Performed By: #### BIOFIRECOVNOTDE, RESP PANEL UPP. ####[address] [address] [place] Glucose Poct Glucometerson 64-70-2551Wfcykfh [Mass/Vol]293 mg/dLNoAtrium Health Mercy Physician GroupComment on above:Result Comment: Random Glucose Reference Range is dependent on time and content of last meal. Glucose of more than 200 mg/dL in a nonstressed, ambulatory subject supports the diagnosis of Diabetes Mellitus.PERFORMED BY:[address] [place]aul[place], [place] [phone] MEDICAL JULIAN PADILLA M.D.Performed By: #### GLULS ####Point of Care testing,Glucose [Mass/Vol]277 mg/dLTampa Shriners Hospital Physician GroupComment on above:Result Comment: Random Glucose Reference Range is dependent on time and content of last meal. Glucose of more than 200 mg/dL in a nonstressed, ambulatory subject supports the diagnosis of Diabetes Mellitus.PERFORMED BY:[address] [place], [place] [phone] MEDICAL JULIAN PADILLA M.D.Performed By: #### GLULS ####Point of Care testing, Glucose [Mass/Vol]209 mg/dLTampa Shriners Hospital Physician GroupComment on above: Result Comment: Random Glucose Reference Range is dependent on time and content of last meal. Glucose of more than 200 mg/dL in a nonstressed, ambulatory subject supports the diagnosis of Diabetes Mellitus.PERFORMED BY:[address] [place], [place] [phone] MEDICAL JULIAN PADILLA M.D.Performed By: #### GLULS ####Point of Care testing,Glucose [Mass/Vol]92 mg/dLTampa Shriners Hospital Physician GroupComment on above:Result Comment: Random Glucose Reference Range is dependent on time and content of last meal. Glucose of more than 200 mg/dL in a nonstressed, ambulatory subject supports the diagnosis of Diabetes Mellitus.PERFORMED BY:[address]CA[address]O BARRETOPaulMAYURI, [place] [phone] MEDICAL JULIAN PADILLA M.D.Performed By: #### GLULS ####Point of Care testing,XR chest 1V portableon [id number] chest 1V portableNoAtrium Health Mercy Physician GroupBasic Metabolic Panelon 03-27-2025 Anion gap [Moles/Vol]9.5 mmol/LNormal6.0-15.0[facility] Physician [facility] Comment on above:Performed By: #### BMP ####[address] [address] USACalcium [Mass/Vol]8.4 mg/dLLow8.6-10.3[facility] Physician GroupComment on above:Performed By: #### BMP ####[address] [address] USAChloride [Moles/Vol] 102 mmol/IRqrbvc09-243Jqm [facility] Physician GroupComment on above:Performed By: #### BMP ####[address] [address] USACO2 [Moles/Vol]30.8 mmol/PVwxhhm69.0-31.0[facility] Physician [facility] Comment on above:Performed By: #### BMP ####[address] [address] USACreatinine [Mass/Vol]1.87 mg/dLHigh0.60-1.20 [facility] Physician GroupComment on above:Performed By: #### BMP ####[address] [address] [place] Creatinine Clr Calc Ynshtdcj42.64NormUF Health [facility]es[facility] Physician [facility] HospitalComment on above:Result Comment: PERFORMED BY:[address] [place], [place] [phone] MEDICAL JULIAN PADILLA M.D.Performed By: #### BMP ####[address] [address] USAGFR/1.73 sq M.predicted MDRD (S/P/Bld) [Vol rate/Area]27.039 mL/min/{1.73_m2}NormalThe [facility] Physician GroupComment on above:Performed By: #### BMP ####[address] [address] USAGlucose [Mass/Vol]67 mg/iYUnn64-186Eai [facility] Physician GroupComment on above:Result Comment: Random Glucose Reference Range is dependent on time and content of last meal. Glucose of more than 200 mg/dL in a nonstressed, ambulatory subject supports the diagnosis of Diabetes Mellitus. ADA recommended reference rangePerformed By: #### BMP ####[address] [address] USAPotassium [Moles/Vol]4.3 mmol/LNormal3.5-5.1[facility] Physician GroupComment on above:Performed By: #### BMP ####[address] [address] USASodium [Moles/Vol]138 mmol/IDrrlil980-609Amx [facility] Physician GroupComment on above:Performed By: #### BMP ####[place] [id number] USAUrea nitrogen [Mass/Vol]52 mg/dLHigh7-25The [facility] Physician GroupComment on above:Performed By: #### BMP ####[address] [address] USADipstick and Microscopicon 84-56-4890Zkhjzhsrso (U)CloudyCritically abnormalClearThe [facility] Physician GroupComment on above:Order Comment: Name Collection Type:: Clean-Voided MidstreamPerformed By: #### CARLITOS, CUU ####[address] USABacteria,UrineRareNormalNone SeenThe [facility] Physician GroupComment on above:Order Comment: Name Collection Type:: Clean-Voided MidstreamPerformed By: #### CARLITOS, CUU ####[address] USABilirubin,Urine NegativeNormalNegativeThe [facility] Physician GroupComment on above:Order Comment: Name Collection Type:: Clean-Voided MidstreamPerformed By: #### AMBROSEUAPLUS, CUU ####[address] [address] USAColor (U)Light-YellowNormalYellowThe [facility] Physician GroupComment on above:Order Comment: Name Collection Type:: Clean-Voided MidstreamPerformed By: #### ADDONUAPLUS, CUU ####[address], [address] USAGlucose Ql (U)NormalNormalNormalThe [facility] Physician GroupComment on above:Order Comment: Name Collection Type:: Clean- Voided MidstreamPerformed By: #### ADDONUAPLUS, CUU ####[address], [id number] USAHyaline Casts,UrineNoneNormal 0-8The [facility] Physician GroupComment on above:Order Comment: Name Collection Type:: Clean-Voided MidstreamPerformed By: #### ADDONUAPLUS, CUU ####[address] USAKetones Ql (U)Negative NormalNegativeThe [facility] Physician GroupComment on above:Order Comment: Name Collection Type:: Clean-Voided MidstreamPerformed By: #### ADDONUAPLUS, CUU ####[address], IU[address] [place] Leukocyte esterase Test strip Ql (U)4+NormalNegativeThe [facility] Physician GroupComment on above:Order Comment: Name Collection Type:: Clean-Voided MidstreamPerformed By: #### ADDONUAPLUS, CUU ####[address] [id number] USAMucus,UrineRareNormalThe [facility] Physician GroupComment on above:Order Comment: Name Collection Type:: Clean- Voided MidstreamResult Comment: PERFORMED BY:[address] [address] [address] [place], [place] [phone] MEDICAL JULIAN PADILLA M.D.Performed By: #### ADDONUAPLUS, CUU ####[address] [id number] USANitrite,UrineNegative NormalNegativeThe [facility] Physician GroupComment on above:Order Comment: Name Collection Type:: Clean-Voided MidstreamPerformed By: #### ADDONUAPLUS, CUU ####[address] Lauranovant health/nhrmcze, [place] USAOccult Blood,Urine2+NormalNegativeThe [facility] Physician GroupComment on above:Order Comment: Name Collection Type:: Clean-Voided MidstreamResult Comment: PERFORMED BY:[address] [address] [place], [place] [phone] MEDICAL DIRECTORALINA PADILLA M.D.Performed By: #### CARLITOS, CUU ####[address] [place] [address] USApH (U)5.5 [pH]Normal5.0-9.0The [facility] Physician GroupComment on above:Order Comment: Name Collection Type:: Clean-Voided MidstreamPerformed By: #### CARLTIOS, CUU ####[address] Valentínnovant health/nhrmczeCH[place], [place] USAProtein (U) [Mass/Vol]70 mg/dLNormalNegativeThe [facility] Physician GroupComment on above:Order Comment: Name Collection Type:: Clean-Voided MidstreamPerformed By: #### CARLITOS, CUU ####[address] Valentínnovant health/nhrmczeCHERR[place], [place] USARBC,Bpmzc94-244Qpabqv1-1Bbj [facility] Physician GroupComment on above:Order Comment: Name Collection Type:: Clean-Voided MidstreamPerformed By: #### CARLITOS, CUU ####[address] Valentínnovant health/nhrmcze, JQ[address] USASpecificy Neptune,Urine1.016 Normal1.001-1.030The [facility] Physician GroupComment on above:Order Comment: Name Collection Type:: Clean-Voided MidstreamPerformed By: #### ADDREGGIEUAPLUS, CUU ####[address] Valentínnovant health/[place]rmczeCH[place], [place] [place] Squamous Epithelial Cell,Obxzm7-0Iizdeo8-6Svj [facility] Physician GroupComment on above:Order Comment: Name Collection Type:: Clean-Voided MidstreamPerformed By: #### ADDONUAPLUS, CUU ####[facility] Valentínnovant health/nhrmcze, [address] USAUrobilinogen,UrineNormalNormalNormMercy Health St. Vincent Medical Centere [facility] Physician GroupComment on above:Order Comment: Name Collection Type:: Clean- Voided MidstreamPerformed By: #### ADDONUAPLUS, CUU ####[place] [address] [place] Valentínnovant health/nhrmcze, [address] USAWBC CLUMP, UrineRareNormalNone SeenHca Florida Saras[facility] Doctors [facility] Physician GroupComment on above:Order Comment: Name Collection Type:: Clean-Voided MidstreamPerformed By: #### ADDONUAPLUS, CUU ####[address]ze, [address] USAWBC,Pdghk26-45Jgagwa 0-4The [facility] Physician GroupComment on above:Order Comment: Name Collection Type:: Clean-Voided MidstreamPerformed By: #### ADDONUAPLUS, CUU ####[address]jeana, [place] USAGlucose Poct Glucometerson 43-91-9850Mserznc [Mass/Vol]333 mg/dLNoAtrium Health Mercy Physician [facility] HospitalComment on above:Result Comment: Random Glucose Reference Range is dependent on time and content of last meal. Glucose of more than 200 mg/dL in a nonstressed, ambulatory subject supports the diagnosis of Diabetes Stacy litus.PERFORMED BY:[address] [address] [place], [place] [phone] MEDICAL JULIAN PADILLA M.D.Performed By: #### GLULS ####Point of Care testing,Glucose [Mass/Vol]286 mg/dLNoAtrium Health Mercy Physician [facility] HospitalComment on above:Result Comment: Random Glucose Reference Range is dependent on time and content of last meal. Glucose of more than 200 mg/dL in a nonstressed, ambulatory subject supports the diagnosis of Diabetes Mellitus.PERFORMED BY:[address] [place], [place] [phone] CHRISTOPHER PADILLA M.D.Performed By: #### GLULS ####Point of Care testing,Fmawjvk0Jzd9: Cleaned MeterNoAtrium Health Mercy Physician GroupComment on above:Result Comment: PERFORMED BY:[address] [address] [place], [place] [phone] MEDICAL JULIAN PADILLA M.D.Performed By: #### GLULS ####Point of Care testing,Glucose [Mass/Vol]248 mg/dLNoAtrium Health Mercy Physician GroupComment on above:Result Comment: Random Glucose Reference Range is dependent on time and content of last meal. Glucose of more than 200 mg/dL in a nonstressed, ambulatory subject supports the diagnosis of Diabetes Mellitus.Performed By: #### GLULS ####Point of Care testing,Glucose [Mass/Vol]97 mg/dLTampa Shriners Hospital Physician GroupComment on above:Result Comment: Random Glucose Reference Range is dependent on time and content of last meal. Glucose of more than 200 mg/dL in a nonstressed, ambulatory subject supports the diagnosis of Diabetes Mellitus.PERFORMED BY:[address] [place], [place] [phone] MEDICAL JULIAN PADILLA M.D.Performed By: #### GLULS ####Point of Care testing, Urine Cultureon [id number] identified Cx Nom (U)NormalThe Cancer Treatment Centers Of AmericaComment on above:Performed By: #### ADDONUAPLUS, CUU ####[address] USABasic Metabolic Panelon 00-57-7311Gpcqn gap [Moles/Vol]13.4 mmol/LNormal6.0-15.0[facility] Physician GroupComment on above:Performed By: #### CBC, BMP ####[address] [address] USACalcium [Mass/Vol]8.4 mg/dLLow8.6-10.3The [facility] Physician GroupComment on above: Performed By: #### CBC, BMP ####[address] [place] [address] USAChloride [Moles/Vol]100 mmol/ESdkdvv87-957Lzf [facility] Physician GroupComment on above:Performed By: #### CBC, BMP ####[address] [address] USACO2 [Moles/Vol]25.2 mmol/OWxteaj48.0-31.0The [facility] Physician GroupComment on above:Performed By: #### CBC, BMP ####[address] [address] USACreatinine [Mass/Vol]2.09 mg/dLHigh0.60-1.20The [facility] Physician GroupComment on above:Performed By: #### CBC, BMP ####[place] [address] [place] Creatinine Clr Calc Bxdokdky01.28NormUF Health [facility] Physician [facility] HospitalComment on above:Result Comment: PERFORMED BY:[address]YaelWORTHINGTON SPRINGS, [place] [phone] MEDICAL JULIAN PADILLA M.D.Performed By: #### CBC, BMP ####[address] [address] USAGFR/1.73 sq M.predicted MDRD (S/P/Bld) [Vol rate/Area]23.661 mL/min/{1.73_m2}NormalThe [facility] Physician [facility] HospitalComment on above:Performed By: #### CBC, BMP ####[address] [address] USAGlucose [Mass/Vol]131 mg/lMEgef11-862Zaj [facility] Physician GroupComment on above:Result Comment: Random Glucose Reference Range is dependent on time and content of last meal. Glucose of more than 200 mg/dL in a nonstressed, ambulatory subject supports the diagnosis of Diabetes Mellitus. ADA recommended reference rangePerformed By: #### CBC, BMP ####[address] [address] USAPotassium [Moles/Vol] 4.6 mmol/LNormal3.5-5.1The [facility] Physician GroupComment on above:Performed By: #### CBC, BMP ####[place] [address] USASodium [Moles/Vol]134 mmol/OXtl044-750Bxt [facility]ician Group Comment on above:Performed By: #### CBC, BMP ####[place] [address] USAUrea nitrogen [Mass/Vol]52 mg/dLHigh 7-25The [facility] Physician GroupComment on above:Performed By: #### CBC, BMP ####[place] [address] [facility] Complete Blood Count Auto Diffon [id number] (Bld) [#/Vol]0.1 10*3/uL Normal0.0-0.2The [facility] Physician GroupComment on above:Result Comment: PERFORMED BY:[address] [place], [place] [phone] MEDICAL DIRECTORALINA PADILLA M.D.Performed By: #### CBC, BMP ####[place] [address] USABasophils/100 WBC (Bld)0.7 %Normal.The [facility] Physician GroupComment on above:Performed By: #### CBC, BMP ####[place] [address] USAEosinophils (Bld) [#/Vol]0.3 10*3/uLNormal 0.0-0.45The [facility] Physician GroupComment on above:Performed By: #### CBC, BMP ####[place] [address] [place] Eosinophils/100 WBC (Bld)2.0 %Normal.The [facility] Physician GroupComment on above:Performed By: #### CBC, BMP ####[place] [address] USAErythrocyte distribution width (RBC) [Ratio]15.7 % High11.9-15.3The [facility] Physician GroupComment on above:Performed By: #### CBC, BMP ####[place] [address] USAHematocrit (Bld) [Volume fraction]31.8 %Low34.0-46.4The [facility] Physician GroupComment on above:Performed By: #### CBC, BMP ####[place] [address] USAHemoglobin (Bld) [Mass/Vol]10.3 g/dL Low11.8-15.4The [facility] Physician GroupComment on above:Performed By: #### CBC, BMP ####[place] [address] USALymphocytes (Bld) [#/Vol]1.9 10*3/uLNormal1.00-4.8The [facility] Physician GroupComment on above:Performed By: #### CBC, BMP ####[place] [address] USALymphocytes/100 WBC (Bld)14.7 %Normal .The [facility] Physician GroupComment on above:Performed By: #### CBC, BMP ####[place] [address] USAMCH (RBC) [Entitic mass]32.8 drEfhsgc50.7-34.3The [facility] Physician GroupComment on above:Performed By: #### CBC, BMP ####[place] [address] USAMCV (RBC) [Entitic vol]101.8 lDWsdz06-173Fkd [facility] Physician GroupComment on above:Performed By: #### CBC, BMP ####[place] [address] USAMean Corpuscular HGB Conc32.3 g/bYCgljja91.0-35.0The [facility] Physician GroupComment on above:Performed By: #### CBC, BMP ####[place] [address] USAMonocytes (Bld) [#/Vol]0.9 10*3/uLHigh0.0-0.8 The [facility] Physician GroupComment on above:Performed By: #### CBC, BMP ####[place] [address] [place] Monocytes/100 WBC (Bld)7.0 %Normal.The [facility] Physician GroupComment on above:Performed By: #### CBC, BMP ####[place] [address] USANeutrophils (Bld) [#/Vol]9.8 10*3/uLHigh1.8-7.7The [facility] Physician GroupComment on above:Performed By: #### CBC, BMP ####[place] [address] [place] Neutrophils/100 WBC (Bld)75.6 %Normal.The [facility] Physician GroupComment on above:Performed By: #### CBC, BMP ####[place] [address] USANRBC%0.2 /100{WBC}Normal0-0.5The [facility] Physician GroupComment on above:Performed By: #### CBC, BMP ####[place] [address] USAPlatelet mean volume (Bld) [Entitic vol]9.7 fLNormal6.3-10.7The [facility] Physician GroupComment on above: Performed By: #### CBC, BMP ####[place] [address] USAPlatelets (Bld) [#/Vol]212 10*3/iYGxkmmp822-213Jkl [facility] Physician GroupComment on above:Performed By: #### CBC, BMP ####[place] [address] USARBC (Bld) [#/Vol]3.12 10*6/uLLow3.60-5.00The [facility] Physician GroupComment on above:Performed By: #### CBC, BMP ####[address] [place] [address] USAWBC (Bld) [#/Vol]13.0 10*3/uLHigh3.8-11.6The [facility] Physician GroupComment on above:Performed By: #### CBC, BMP ####[place] [place] [address] USAWhite Blood Count13.0 [CFU]/mLHigh3.8-11.6The [facility] Physician GroupComment on above:Performed By: #### CBC, BMP ####[address] [address] USAGlucose Poct Glucometerson 12-42-9257Cvlysrx [Mass/Vol]396 mg/dLNoAtrium Health Mercy Physician [facility] HospitalComment on above:Result Comment: Random Glucose Reference Range is dependent on time and content of last meal. Glucose of more than 200 mg/dL in a nonstressed, ambulatory subject supports the diagnosis of Diabetes Mellitus.PERFORMED BY:[address] BARRETOPaulMAYURI, [place] [phone] MEDICAL DIRECTORALINA PADILLA M.D.Performed By: #### GLULS ####Point of Care testing, Psqvcci2Svs3: Cleaned MeterTampa Shriners Hospital Physician GroupComment on above: Result Comment: PERFORMED BY:[address] BARRETOPaulMAYURI, [place] [phone] MEDICAL JULIAN PADILLA M.D.Performed By: #### GLULS ####Point of Care testing,Glucose [Mass/Vol]352 mg/dLNoAtrium Health Mercy Physician GroupComment on above:Result Comment: Random Glucose Reference Range is dependent on time and content of last meal. Glucose of more than 200 mg/dL in a nonstressed, ambulatory subject supports the diagnosis of Diabetes Mellitus.Performed By: #### GLULS ####Point of Care testing,Yvzazxv9Prw4: Cleaned MeterNoAtrium Health Mercy Physician GroupComment on above:Result Comment: PERFORMED BY:[address] BARRETOPaulMAYURI, [place] [phone] MEDICAL JULIAN PADILLA M.D.Performed By: #### GLULS ####Point of Care testing,Glucose [Mass/Vol]148 mg/dLTampa Shriners Hospital Physician GroupComment on above:Result Comment: Random Glucose Reference Range is dependent on time and content of last meal. Glucose of more than 200 mg/dL in a nonstressed, ambulatory subject supports the diagnosis of Diabetes Mellitus.Performed By: #### GLULS ####Point of Care testing,Glucose [Mass/Vol]92 mg/dLTampa Shriners Hospital Physician GroupComment on above:Result Comment: Random Glucose Reference Range is dependent on time and content of last meal. Glucose of more than 200 mg/dL in a nonstressed, ambulatory subject supports the diagnosis of Diabetes Mellitus.PERFORMED BY:[address] [place], [place] [phone] MEDICAL JULIAN PADILLA M.D.Performed By: #### GLULS ####Point of Care testing,Glucose Poct Glucometerson 03-25-2025 Glucose [Mass/Vol]364 mg/dLNoAtrium Health Mercy Physician GroupComment on above: Result Comment: Random Glucose Reference Range is dependent on time and content of last meal. Glucose of more than 200 mg/dL in a nonstressed, ambulatory subject supports the diagnosis of Diabetes Mellitus.PERFORMED BY:[address] [address] [place], [place] [phone] MEDICAL JULIAN PADILLA M.D.Performed By: #### GLULS ####Point of Care testing,Glucose [Mass/Vol]248 mg/dLTampa Shriners Hospital Physician GroupComment on above:Result Comment: Random Glucose Reference Range is dependent on time and content of last meal. Glucose of more than 200 mg/dL in a nonstressed, ambulatory subject supports the diagnosis of Diabetes Mellitus.PERFORMED BY:[address] [address] [place], [place] [phone] MEDICAL JULIAN PADILLA M.D.Performed By: #### GLULS ####Point of Care testing,Dwlpgmy7Hhp4: Cleaned MeterNormUF Health Leesburg Hospital Physician GroupComment on above:Result Comment: PERFORMED BY:[address] [address] [address] BARRETOPaul[place], [place] [phone] MEDICAL JULIAN PADILLA M.D.Performed By: #### GLULS ####Point of Care testing,Glucose [Mass/Vol]176 mg/dLTampa Shriners Hospital Physician GroupComment on above:Result Comment: Random Glucose Reference Range is dependent on time and content of last meal. Glucose of more than 200 mg/dL in a nonstressed, ambulatory subject supports the diagnosis of Diabetes Mellitus.Performed By: #### GLULS ####Point of Care testing,Ojnyxgd2Zpk6: Cleaned MeterNoAtrium Health Mercy Physician GroupComment on above:Result Comment: PERFORMED BY:[address] BARRETOPaulMAYURI, [place] [phone] MEDICAL JULIAN PADILLA M.D.Performed By: #### GLULS ####Point of Care testing,Glucose [Mass/Vol]153 mg/dLTampa Shriners Hospital Physician GroupComment on above:Result Comment: Random Glucose Reference Range is dependent on time and content of last meal. Glucose of more than 200 mg/dL in a nonstressed, ambulatory subject supports the diagnosis of Diabetes Mellitus.Performed By: #### GLULS ####Point of Care testing,Glucose Poct Glucometerson 03-24-2025 Phbknmz6Rlw7: Cleaned MeterTampa Shriners Hospital Physician GroupComment on above: Result Comment: PERFORMED BY:[address] [place]OTTR[place], [place] [phone] MEDICAL JULIAN PADILLA M.D.Performed By: #### GLULS ####Point of Care testing,Glucose [Mass/Vol]294 mg/dLTampa Shriners Hospital Physician GroupComment on above:Result Comment: Random Glucose Reference Range is dependent on time and content of last meal. Glucose of more than 200 mg/dL in a nonstressed, ambulatory subject supports the diagnosis of Diabetes Mellitus.Performed By: #### GLULS ####Point of Care testing,Ruokadp3VsnrjhCil Firelands Physician GroupComment on above:Result Comment: Glu2: WILL NOTIFY /NAVJOTerformed By: #### GLULS ####Point of Care testing,Ksvxifo0Znrdynm MeterNoAtrium Health Mercy Physician GroupComment on above:Result Comment: PERFORMED BY:[address] [address] [address]CA[address] [place], [place] [phone] MEDICAL JULIAN PADILLA M.D.Performed By: #### GLULS ####Point of Care testing,Glucose [Mass/Vol]210 mg/dLTampa Shriners Hospital Physician GroupComment on above:Result Comment: Random Glucose Reference Range is dependent on time and content of last meal. Glucose of more than 200 mg/dL in a nonstressed, ambulatory subject supports the diagnosis of Diabetes Mellitus.Performed By: #### GLULS ####Point of Care testing,Glucose [Mass/Vol]172 mg/dLTampa Shriners Hospital Physician GroupComment on above:Result Comment: Random Glucose Reference Range is dependent on time and content of last meal. Glucose of more than 200 mg/dL in a nonstressed, ambulatory subject supports the diagnosis of Diabetes Mellitus.PERFORMED BY:[address] [address]CA[address] [place], [place] [phone] MEDICAL JULIAN PADILLA M.D.Performed By: #### GLULS ####Point of Care testing,Glucose [Mass/Vol]136 mg/dLTampa Shriners Hospital Physician GroupComment on above:Result Comment: Random Glucose Reference Range is dependent on time and content of last meal. Glucose of more than 200 mg/dL in a nonstressed, ambulatory subject supports the diagnosis of Diabetes Mellitus.PERFORMED BY:[address] [address]CA[address] [place], [place] [phone] MEDICAL JLUIAN PADILLA M.D.Performed By: #### GLULS ####Point of Care testing,Complete Blood Count Auto Diffon [id number] (Bld) [#/Vol]0.0 10*3/uLNormal0.0-0.2The [facility] Physician GroupComment on above:Result Comment: PERFORMED BY:[address] [place], [place] [phone] MEDICAL DIRECTORALINA PADILLA M.D.Performed By: #### CBC, CMP, PAB ####[place] [address] USABasophils/100 WBC (Bld)0.3 %Normal.The [facility] Physician GroupComment on above:Performed By: #### CBC, CMP, PAB ####[place] [address] USAEosinophils (Bld) [#/Vol]0.0 10*3/uLNormal0.0-0.45The [facility] Physician GroupComment on above:Performed By: #### CBC, CMP, PAB ####[place] [address] USAEosinophils/100 WBC (Bld)0.0 %Normal.The [facility] Physician GroupComment on above:Performed By: #### CBC, CMP, PAB ####[place] [address] USAErythrocyte distribution width (RBC) [Ratio]15.9 %High11.9-15.3The [facility] Physician GroupComment on above:Performed By: #### CBC, CMP, PAB ####[place] [address] [place] Hematocrit (Bld) [Volume fraction]29.4 %Low34.0-46.4The [facility] Physician GroupComment on above:Performed By: #### CBC, CMP, PAB ####[place] [address] USAHemoglobin (Bld) [Mass/Vol]9.5 g/dLLow11.8-15.4The [facility] Physician GroupComment on above:Performed By: #### CBC, CMP, PAB ####[place] [id number] USALymphocytes (Bld) [#/Vol]1.4 10*3/uLNormal1.00-4.8The [facility] Physician GroupComment on above:Performed By: #### CBC, CMP, PAB ####[place] [address] USALymphocytes/100 WBC (Bld)10.5 %Normal.The [facility] Physician GroupComment on above:Performed By: #### CBC, CMP, PAB ####[address]H (RBC) [Entitic mass]32.4 hhXytrrb85.7-34.3The [facility] Physician GroupComment on above:Performed By: #### CBC, CMP, PAB ####[address]MCV (RBC) [Entitic vol]100.3 fGIimk13-852Ibn [facility] Physician GroupComment on above:Performed By: #### CBC, CMP, PAB ####[place] [address] USAMean Corpuscular HGB Conc32.3 g/kGVnxptc51.0-35.0The [facility] Physician GroupComment on above:Performed By: #### CBC, CMP, PAB ####[place] [id number] [place] Monocytes (Bld) [#/Vol]1.1 10*3/uLHigh0.0-0.8[facility] Comment on above:Performed By: #### CBC, CMP, PAB ####[place] [address] USAMonocytes/100 WBC (Bld)8.0 %Normal. The [facility] Physician GroupComment on above:Performed By: #### CBC, CMP, PAB ####[place] [address] [place] Neutrophils (Bld) [#/Vol]10.9 10*3/uLHigh1.8-7.7[facility] Comment on above:Performed By: #### CBC, CMP, PAB ####[address] [address] USANeutrophils/100 WBC (Bld)81.2 %Normal .The [facility] Physician GroupComment on above:Performed By: #### CBC, CMP, PAB ####[address] [address] USANRBC% 0.1 /100{WBC}Normal0-0.5The [facility] Physician GroupComment on above:Performed By: #### CBC, CMP, PAB ####[address] [address] USAPlatelet mean volume (Bld) [Entitic vol]10.1 fL Normal6.3-10.7The [facility] Physician GroupComment on above:Performed By: #### CBC, CMP, PAB ####[address] [address] USAPlatelets (Bld) [#/Vol]171 10*3/kYHsdeuj927-674Teg [facility] Physician GroupComment on above:Performed By: #### CBC, CMP, PAB ####[address] [address] USARBC (Bld) [#/Vol]2.93 10*6/uL Low3.60-5.00The [facility] Physician GroupComment on above:Performed By: #### CBC, CMP, PAB ####[address] [address] USAWBC (Bld) [#/Vol]13.4 10*3/uLHigh3.8-11.6[facility] Comment on above:Performed By: #### CBC, CMP, PAB ####[address] [address] USAWhite Blood Count13.4 [CFU]/mLHigh 3.8-11.6The [facility] Physician GroupComment on above:Performed By: #### CBC, CMP, PAB ####[address] [address] USAComprehensive Metabolic Panelon 08-62-7406Typbxes [Mass/Vol]3.2 g/dLLow 3.5-5.7The [facility] Physician GroupComment on above:Performed By: #### CBC, CMP, PAB ####[place] [address] USAAlbumin/Globulin [Mass ratio]1.1 {ratio}NormalThe [facility] Physician [facility] Comment on above:Performed By: #### CBC, CMP, PAB ####[place] [phone] USAALP [Catalytic activity/Vol]41 U/L Klkbni19-803Jcw [facility] Physician [facility] HospitalComment on above:Performed By: #### CBC, CMP, PAB ####[place] [address] USAALT [Catalytic activity/Vol]U/LLow7-52The [facility] Physician [facility] Comment on above:Performed By: #### CBC, CMP, PAB ####[place] [address] USAAnion gap [Moles/Vol]12.2 mmol/LNormal 6.0-15.0The [facility] Physician GroupComment on above:Performed By: #### CBC, CMP, PAB ####[place] [address] USAAST [Catalytic activity/Vol]15 U/KQpvlxm31-24Ogz [facility] Physician [facility] Comment on above:Performed By: #### CBC, CMP, PAB ####[place] [address] USABilirubin [Mass/Vol]0.2 mg/dLLow 0.3-1.0The [facility] Physician GroupComment on above:Performed By: #### CBC, CMP, PAB ####[place] [address] USACalcium [Mass/Vol]8.5 mg/dLLow8.6-10.3The [facility] Physician GroupComment on above:Performed By: #### CBC, CMP, PAB ####[address] [address] USAChloride [Moles/Vol]101 mmol/GSbivpg13-595Hck [facility] Physician GroupComment on above:Performed By: #### RADHA GRECO, PAB ####[place] [address] USACO2 [Moles/Vol]27.3 mmol/OEyfxoc96.0-31.0The [facility] Physician GroupComment on above:Performed By: #### RADHA GRECO, PAB ####[place] [address] USACreatinine [Mass/Vol]1.89 mg/dLHigh0.60-1.20 The [facility] Physician GroupComment on above:Performed By: #### RADHA GRECO, PAB ####[place] [address] [place] Creatinine Clr Calc Hoottjiy45.32NoAtrium Health Mercy Physician GroupComment on above:Performed By: #### RADHA GRECO, PAB ####[place] [address] USAGFR/1.73 sq M.predicted MDRD (S/P/Bld) [Vol rate/Area]26.696 mL/min/{1.73_m2}NormalThe [facility] Physician GroupComment on above:Performed By: #### RADHA GRECO, PAB ####[place] [address] USAGlobulin (S) [Mass/Vol]2.9 g/dLTampa Shriners Hospital Physician [facility] HospitalComment on above:Performed By: #### ANGUS CMP, PAB ####[place] [address] USAGlucose [Mass/Vol]163 mg/dCPxnk35-997Waz [facility] Physician GroupComment on above: Result Comment: Random Glucose Reference Range is dependent on time and content of last meal. Glucose of more than 200 mg/dL in a nonstressed, ambulatory subject supports the diagnosis of Diabetes Mellitus. ADA recommended reference rangePerformed By: #### ANGUS CMP, PAB ####[place] [address] USAPotassium [Moles/Vol]4.5 mmol/LNormal3.5-5.1 The [facility] Physician GroupComment on above:Performed By: #### CBC CMP, PAB ####[place] [address] [place] [address] USAProtein [Mass/Vol]6.1 g/dLLow6.4-8.9The [facility] Physician GroupComment on above: Performed By: #### CBC, CMP, PAB ####[place] [address] USASodium [Moles/Vol]136 mmol/CIslhlh951-118Pcn [facility] Physician GroupComment on above:Performed By: #### CBC CMP, PAB ####[place] [address] USAUrea nitrogen [Mass/Vol]45 mg/dLGrafton City Hospital7-[facility] Physician GroupComment on above:Performed By: #### CBC CMP, PAB ####[place] [address] USAGlucose Poct Glucometerson 25-05-0637Flqjhby [Mass/Vol]322 mg/dLNoAtrium Health Mercy Physician [facility] HospitalComment on above:Result Comment: Random Glucose Reference Range is dependent on time and content of last meal. Glucose of more than 200 mg/dL in a nonstressed, ambulatory subject supports the diagnosis of Diabetes Mellitus.PERFORMED BY:[address] [place], [place] [phone] MEDICAL JULIAN PADILLA M.D.Performed By: #### GLULS ####Point of Care testing, Glucose [Mass/Vol]235 mg/dLNoAtrium Health Mercy Physician [facility] HospitalComment on above: Result Comment: Random Glucose Reference Range is dependent on time and content of last meal. Glucose of more than 200 mg/dL in a nonstressed, ambulatory subject supports the diagnosis of Diabetes Mellitus.PERFORMED BY:[address] [place], [place] [phone] MEDICAL DIRECTORMARIO S RANDY M.D.Performed By: #### GLULS ####Point of Care testing,Glucose [Mass/Vol]232 mg/dLTampa Shriners Hospital Physician [facility] HospitalComment on above:Result Comment: Random Glucose Reference Range is dependent on time and content of last meal. Glucose of more than 200 mg/dL in a nonstressed, ambulatory subject supports the diagnosis of Diabetes Mellitus.PERFORMED BY:[address] [place]IOTTR[place], [place] [phone] MEDICAL JULIAN PADILLA M.D.Performed By: #### GLULS ####Point of Care testing,Glucose [Mass/Vol]161 mg/dLNoAtrium Health Mercy Physician GroupComment on above:Result Comment: Random Glucose Reference Range is dependent on time and content of last meal. Glucose of more than 200 mg/dL in a nonstressed, ambulatory subject supports the diagnosis of Diabetes Mellitus.PERFORMED BY:[address] [place], [place] [phone] MEDICAL JULIAN PADILLA M.D.Performed By: #### GLULS ####Point of Care testing,Prealbuminon 03-23-2025 Prealbumin [Mass/Vol]16.6 mg/dLLow17.0-34.0The [facility] Physician GroupComment on above:Result Comment: PERFORMED BY:[address] BARRETOPaulMAYURI, [place] [phone] MEDICAL JULIAN PADILLA M.D.Performed By: #### CBC, CMP, PAB ####[address] [address] USABasic Metabolic Panelon 03-22-2025 Anion gap [Moles/Vol]12.3 mmol/LNormal6.0-15.0The [facility] Comment on above:Performed By: #### BMP, CBC ####[address] [address] USACalcium [Mass/Vol]8.1 mg/dLLow8.6-10.3 The [facility] Physician GroupComment on above:Performed By: #### BMP, CBC ####[place] [address] [place] [address] [place] Chloride [Moles/Vol]96 mmol/OEye36-353Ftw [facility] Physician GroupComment on above:Performed By: #### BMP, CBC ####[address] [address] USACO2 [Moles/Vol]28.4 mmol/GJpmztq30.0-31.0The [facility] Physician GroupComment on above:Performed By: #### BMP, CBC ####[address] [address] [place] Creatinine [Mass/Vol]1.89 mg/dLHigh0.60-1.20The [facility] Physician GroupComment on above:Performed By: #### BMP, CBC ####[place] [address] USACreatinine Clr Calc Cxmjxzlm85.33NormalThe [facility] Physician [facility] HospitalComment on above:Result Comment: PERFORMED BY:[address]ETYaelPaulFAUNSDALE, [place] [phone] MEDICAL JULIAN PADILLA M.D.Performed By: #### AVE, CBC ####[address] [address] USAGFR/1.73 sq M.predicted MDRD (S/P/Bld) [Vol rate/Area]26.696 mL/min/{1.73_m2}NormalThe [facility] Physician [facility] HospitalComment on above:Performed By: #### BMP, CBC ####[address] [address] USAGlucose [Mass/Vol]374 mg/oWOqud92-286Nfy [facility] Physician GroupComment on above: Result Comment: Random Glucose Reference Range is dependent on time and content of last meal. Glucose of more than 200 mg/dL in a nonstressed, ambulatory subject supports the diagnosis of Diabetes Mellitus. ADA recommended reference rangePerformed By: #### BMP, CBC ####[address] [address] USAPotassium [Moles/Vol]4.7 mmol/LNormal3.5-5.1The [facility] Physician GroupComment on above:Performed By: #### BMP, CBC ####[place] [address] USASodium [Moles/Vol]132 mmol/CXum226-755Vtv [facility] Physician GroupComment on above: Performed By: #### BMP, CBC ####[place] [address] USAUrea nitrogen [Mass/Vol]40 mg/dLHigh7-25The [facility] Physician GroupComment on above:Performed By: #### BMP, CBC ####[address] Complete Blood Count Auto Diffon 54-52-4845Wplggxwkn (Bld) [#/Vol]0.0 10*3/uL Normal0.0-0.2The [facility] Physician GroupComment on above:Result Comment: PERFORMED BY:[address] [place], [place] [phone] MEDICAL DIRECTORALINA PADILLA M.D.Performed By: #### BMP, CBC ####[place] [address] USABasophils/100 WBC (Bld)0.2 %Normal.The [facility] Physician GroupComment on above:Performed By: #### BMP, CBC ####[place] [address] USAEosinophils (Bld) [#/Vol]0.0 10*3/uLNormal 0.0-0.45The [facility] Physician GroupComment on above:Performed By: #### BMP, CBC ####[place] [address] [place] Eosinophils/100 WBC (Bld)0.0 %Normal.The [facility] Physician GroupComment on above:Performed By: #### BMP, CBC ####[place] [address] USAErythrocyte distribution width (RBC) [Ratio]15.3 % Csqlsd68.9-15.3The [facility] Physician GroupComment on above:Performed By: #### BMP, CBC ####[place] [address] USAHematocrit (Bld) [Volume fraction]31.2 %Low34.0-46.4The [facility] Physician GroupComment on above:Performed By: #### BMP, CBC ####[place] [address] USAHemoglobin (Bld) [Mass/Vol]10.2 g/dL Low11.8-15.4The [facility] Physician GroupComment on above:Performed By: #### BMP, CBC ####[place] [address] USALymphocytes (Bld) [#/Vol]1.1 10*3/uLNormal1.00-4.8The [facility] Physician GroupComment on above:Performed By: #### BMP, CBC ####[place] [address] USALymphocytes/100 WBC (Bld)9.2 %Normal. The [facility] Physician GroupComment on above:Performed By: #### BMP, CBC ####[place] [address] USAMCH (RBC) [Entitic mass]32.8 lgHsswjc57.7-34.3The [facility] Physician GroupComment on above:Performed By: #### BMP, CBC ####[address]MCV (RBC) [Entitic vol]100.3 yCRhcq75-904Yqt [facility] Physician GroupComment on above:Performed By: #### BMP, CBC ####[place] [address] USAMean Corpuscular HGB Conc32.7 g/eHShrmzl91.0-35.0The [facility] Physician GroupComment on above:Performed By: #### BMP, CBC ####[place] [address] USAMonocytes (Bld) [#/Vol]0.8 10*3/uLNormal 0.0-0.8The [facility] Physician GroupComment on above:Performed By: #### BMP, CBC ####[place] [address] [place] Monocytes/100 WBC (Bld)7.1 %Normal.The [facility] Physician GroupComment on above:Performed By: #### BMP, CBC ####[place] [address] USANeutrophils (Bld) [#/Vol]9.8 10*3/uLHigh1.8-7.7The [facility] Physician GroupComment on above:Performed By: #### BMP, CBC ####[place] [address] [place] Neutrophils/100 WBC (Bld)83.5 %Normal.The [facility] Physician GroupComment on above:Performed By: #### BMP, CBC ####[place] [address] USANRBC%0.1 /100{WBC}Normal0-0.5The [facility] Physician GroupComment on above:Performed By: #### BMP, CBC ####[place] [address] USAPlatelet mean volume (Bld) [Entitic vol]9.5 fLNormal6.3-10.7The [facility] Physician GroupComment on above: Performed By: #### BMP, CBC ####[place] [address] USAPlatelets (Bld) [#/Vol]178 10*3/bSRkuctk906-182Syz [facility] Physician GroupComment on above:Performed By: #### BMP, CBC ####[place] [address] USARBC (Bld) [#/Vol]3.11 10*6/uLLow3.60-5.00The [facility] Physician GroupComment on above:Performed By: #### BMP, CBC ####[facility] [place] [address] USAWBC (Bld) [#/Vol]11.8 10*3/uLHigh3.8-11.6The [facility] Physician GroupComment on above:Performed By: #### BMP, CBC ####[facility] [place] [address] USAWhite Blood Count11.8 [CFU]/mLHigh3.8-11.6The [facility] Physician GroupComment on above:Performed By: #### BMP, CBC ####[address] [address] USAGlucose Poct Glucometerson 23-16-2196Xyxyhbe [Mass/Vol]311 mg/dLNoAtrium Health Mercy Physician GroupComment on above:Result Comment: Random Glucose Reference Range is dependent on time and content of last meal. Glucose of more than 200 mg/dL in a nonstressed, ambulatory subject supports the diagnosis of Diabetes Mellitus.PERFORMED BY:[address] LINFAUNSD[place], [place] [phone] MEDICAL JULIAN PADILLA M.D.Performed By: #### GLULS ####Point of Care testing, Dtielix9Qkg4: Cleaned MeterNoAtrium Health Mercy Physician [facility] HospitalComment on above: Result Comment: PERFORMED BY:[address] LINFAUNSD[place], [place] [phone] MEDICAL JULIAN PADILLA M.D.Performed By: #### GLULS ####Point of Care testing,Glucose [Mass/Vol]377 mg/dLNoAtrium Health Mercy Physician GroupComment on above:Result Comment: Random Glucose Reference Range is dependent on time and content of last meal. Glucose of more than 200 mg/dL in a nonstressed, ambulatory subject supports the diagnosis of Diabetes Mellitus.Performed By: #### GLULS ####Point of Care testing,Nlajano9EibmvhVer [facility] Physician GroupComment on above:Result Comment: Glu2: WILL NOTIFY DR/RNPERFORMED BY:[address] LINMAYURI, [place] [phone] MEDICAL JULIAN PADILLA M.D.Performed By: #### GLULS ####Point of Care testing, Glucose [Mass/Vol]456 mg/dLOff scale [facility] Physician GroupComment on above:Result Comment: Random Glucose Reference Range is dependent on time and content of last meal. Glucose of more than 200 mg/dL in a nonstressed, ambulatory subject supports the diagnosis of Diabetes Mellitus.Performed By: #### GLULS ####Point of Care testing,Bulfejn9XxhaedLdhTampa Shriners Hospital Physician Group Comment on above:Result Comment: Glu2: WILL NOTIFY DR/RNPerformed By: #### GLULS ####Point of Care testing,Npwpdis1Ddzm Repeat TestTampa Shriners Hospital Physician GroupComment on above:Result Comment: PERFORMED BY:[place] [address] [address] [place], [place] [phone] MEDICAL JULIAN PADILLA M.D.Performed By: #### GLULS ####Point of Care testing, Glucose [Mass/Vol]419 mg/dLOff scale [facility] Physician GroupComment on above:Result Comment: Random Glucose Reference Range is dependent on time and content of last meal. Glucose of more than 200 mg/dL in a nonstressed, ambulatory subject supports the diagnosis of Diabetes Mellitus.Performed By: #### GLULS ####Point of Care testing,Glucose [Mass/Vol]378 mg/dLTampa Shriners Hospital Physician GroupComment on above:Result Comment: Random Glucose Reference Range is dependent on time and content of last meal. Glucose of more than 200 mg/dL in a nonstressed, ambulatory subject supports the diagnosis of Diabetes Mellitus.PERFORMED BY:[place] [address] [address] [place], [place] [phone] CHRISTOPHER PADILLA M.D.Performed By: #### GLULS ####Point of Care testing,Glucose [Mass/Vol]340 mg/dLTampa Shriners Hospital Physician GroupComment on above:Result Comment: Random Glucose Reference Range is dependent on time and content of last meal. Glucose of more than 200 mg/dL in a nonstressed, ambulatory subject supports the diagnosis of Diabetes Mellitus.PERFORMED BY:[place] [address] [address] [place], [place] [phone] MEDICAL JULIAN PADILLA M.D.Performed By: #### GLULS ####Point of Care testing, Glucose Poct Glucometerson 29-83-8242Rgxdcdk8UcxygvLwg [facility] Comment on above:Result Comment: Glu2: Result Not ConfirmedPERFORMED BY:[place] [address] [address] [place], [place] [phone] MEDICAL JULIAN PADILLA M.D.Performed By: #### GLULS ####Point of Care testing,Glucose [Mass/Vol]442 mg/dLOff scale high [facility] Physician GroupComment on above:Result Comment: Random Glucose Reference Range is dependent on time and content of last meal. Glucose of more than 200 mg/dL in a nonstressed, ambulatory subject supports the diagnosis of Diabetes Mellitus.Performed By: #### GLULS ####Point of Care testing,Commemt1 NormalHca Florida [facility]asota [facility] Hospital Physician GroupComment on above:Result Comment: Glu2: Will Repeat TestPERFORMED BY:[place] [address] [address] [place], [place] [phone] MEDICAL JULIAN PADILLA M.D. Performed By: #### GLULS ####Point of Care testing,Glucose [Mass/Vol]428 mg/dL Off scale [facility] Physician GroupComment on above:Result Comment: Random Glucose Reference Range is dependent on time and content of last meal. Glucose of more than 200 mg/dL in a nonstressed, ambulatory subject supports the diagnosis of Diabetes Mellitus.Performed By: #### GLULS ####Point of Care testing,Glucose [Mass/Vol]188 mg/dLTampa Shriners Hospital Physician [facility] HospitalComment on above:Result Comment: Random Glucose Reference Range is dependent on time and content of last meal. Glucose of more than 200 mg/dL in a nonstressed, ambulatory subject supports the diagnosis of Diabetes Mellitus.PERFORMED BY:[facility] [place]RETOPaul[place], [place] [phone] MEDICAL DIRECTORALINA PADILLA M.D.Performed By: #### GLULS ####Point of Care testing,Glucose [Mass/Vol]132 mg/dLTampa Shriners Hospital Physician GroupComment on above:Result Comment: Random Glucose Reference Range is dependent on time and content of last meal. Glucose of more than 200 mg/dL in a nonstressed, ambulatory subject supports the diagnosis of Diabetes Mellitus.PERFORMED BY:[facility] [place]aul[place], [place] [phone] MEDICAL DIRECTORALINA PADILLA M.D.Performed By: #### GLULS ####Point of Care testing,Ben 82-30-5362QZlqvpqXqa [facility] Physician GroupXR hip LT 1Von 61-61-9969KK hip LT 1VNoAtrium Health Mercy Physician GroupXR low pelvis w/LT x-table hipon 19-91-4570DP low pelvis w/LT x-table hipNoAtrium Health Mercy Physician GroupX-ray reportOrdered By: Earnest Iraheta on 60-10-8290Azikh reportSELECT MEDICAL [facility] [address] [place] [address] XRay Report Signed Patient: Lexi Tatum MR#: [id number] : 1945 Acct:[id number] Age/Sex: 79 / F ADM Date: [address]: [facility] Room: Type: [facility] Attending Dr: Da Lozano II, MD Copies [...] STUDY.. Impression dictated by: Earnest Iraheta Jr., Celestine 03/09/2025 4:45 PM Dictation Location: [place] [address] Transcribed By: [facility] 03/09/251644 Dictated By: Earnest Iraheta Jr, DO 03/09/251643 Signed By: 03/09/251644 [facility] CenterXR hip LT min 2V(w/wo pelvis)*on 46-05-0840FR hip LT min 2V(w/wo pelvis)*NormalThe [facility] Physician GroupAppearance of UrineOrdered By: Da Lozano on 87-04-7964Epiztjggml (U)TurbidCritically abnormalCleSheltering Arms HospitalComment on above:Order Comment: Name Collection Type:: Clean-Voided MidstreamPerformed By: #### CUU, ADDONUAPLUS ####[address] [facility] Bacteria [Presence] in Urine by AutomatedOrdered By: Da Lozano on 67-72-6334Jsdpmezn Auto Ql (U)2+ [HPF]HighNone Mansfield HospitalBasic Metabolic Panelon 93-10-0388CTM/1.73 sq M.predicted MDRD (S/P/Bld) [Vol rate/Area]25.714 mL/min/{1.73_m2}NormalThe [facility] Physician GroupComment on above:Performed By: #### CBC, BMP ####[address] [address] [facility]#### FRUC ####[facility] ,Basophils [#/volume] in Blood by Automated countOrdered By: Da Lozano on 03-03-2025 Basophils (Bld) [#/Vol]0.1 10*3/uLNormal0.0-0.2FMemorial Health System Comment on above:Result Comment: PERFORMED BY:[place] [address] [address] [place], [place] [phone] MEDICAL DIRECTORALINA PADILLA M.D.Performed By: #### CBC, BMP ####[place] [address] [place]#### FRUC ####[facility] ,Basophils/100 leukocytes in Blood by Automated countOrdered By: Da Lozano on 51-68-7894Khgqyapdr/100 WBC (Bld)0.8 %Normal.[facility] Medical CenterComment on above:Performed By: #### CBC, BMP ####[place] [address] [place]#### FRUC ####[facility] ,Bilirubin Test strip Ql (U)Ordered By: Da Lozano on 83-47-8909Lkqovawuc Ql (U)NegativeNegativeUniversity Hospitals Elyria Medical CenterCalcium [Mass/volume] in Serum or PlasmaOrdered By: Da Lozano on 74-48-7976Bnaoaum [Mass/Vol]9.6 mg/dLNormal8.6-10.3FMemorial Health SystemComment on above:Result Comment: PERFORMED BY:[address] [place], [place] [phone] MEDICAL JULIAN PADILLA M.D.Performed By: #### CBC, BMP ####[place] [address] [place]#### FRUC ####[facility] ,Carbon dioxide, total [Moles/volume] in Serum or PlasmaOrdered By: Da Lozano on 16-07-2532IR1 [Moles/Vol]32.6 mmol/LHigh21.0-31.0[facility] Medical CenterComment on above:Performed By: #### CBC, BMP ####[place] [address] [place]#### FRUC ####[facility] ,Chloride [Moles/volume] in Serum or PlasmaOrdered By: Da Lozano on 88-06-3009Cyfzbjcf [Moles/Vol]100 mmol/WNabxif54-725 [facility] Medical CenterComment on above:Performed By: #### CBC, BMP ####[address]#### FRUC ####[facility] ,Color of Urine by AutoOrdered By: Da Lozano on 43-25-7770Aidwh (U)Light-orangeCritically abnormalYelDelaware County HospitalComment on above:Order Comment: Name Collection Type:: Clean- Voided MidstreamPerformed By: #### CUDesi, ADDONUAPLUS ####[address] USAComplete Blood Count Auto Diff on 77-93-5819Cyli Corpuscular HGB Conc32.5 g/yBMiogfy92.0-35.0[facility] Physician GroupComment on above:Performed By: #### CBC, BMP ####[place] [address] [place]#### FRUC ####[facility] ,NRBC%0.1 /100{WBC}Normal0-0.5The [facility] Physician GroupComment on above:Performed By: #### CBC, BMP ####[place] [address] [place]#### FRUC ####[facility] ,White Blood Count10.2 [CFU]/mLNormal3.8-11.6The [facility] Physician GroupComment on above:Performed By: #### CBC, BMP ####[place] [address] [place]#### FRUC ####[facility] ,Creatinine [Mass/volume] in Serum or PlasmaOrdered By: Da Lozano on 03-03-2025 Creatinine [Mass/Vol]1.95 mg/dLHigh0.60-1.20[facility] Comment on above:Performed By: #### CBC, BMP ####[address] [address] [place]#### FRUC ####[facility] , Dipstick and Microscopicon 55-94-3877Ujoicfdx,Urine2+ [HPF]NormalNone SeenThe [facility] Hospital Physician GroupComment on above:Order Comment: Name Collection Type:: Clean-Voided MidstreamPerformed By: #### CUU, ADDONUAPLUS ####[address] [id number] USABilirubin,UrineNegativeNormal NegativeThe [facility] Hospital Physician GroupComment on above:Order Comment: Name Collection Type:: Clean-Voided MidstreamPerformed By: #### CUU, ADDONUAPLUS ####[address] USAGlucose Ql (U)NormalNormalNormalThe [facility] Physician GroupComment on above:Order Comment: Name Collection Type:: Clean-Voided MidstreamPerformed By: #### CUU, ADDONUAPLUS ####[address] USAHyaline Casts,UrineNoneNormal0-8The [facility] Physician GroupComment on above:Order Comment: Name Collection Type:: Clean-Voided MidstreamPerformed By: #### CUU, ADDONUAPLUS ####[address] USAMucus,UrineRareNormalThe [facility] Comment on above:Order Comment: Name Collection Type:: Clean-Voided Midstream Result Comment: PERFORMED BY:[place] [address] [address] [place], [place] [phone] MEDICAL DIRECTORALINA PADILLA M.D.Performed By: #### CUU, ADDONUAPLUS ####[address] USANitrite,UrineNegativeNormalNegativeHca [facility] Physician GroupComment on above:Order Comment: Name Collection Type:: Clean-Voided MidstreamPerformed By: #### CUU, ADDONUAPLUS ####[place] [address] [address] [address] [place], [id number] USANon-Squamous Epithelial Cell,U 3-4NormalNone SeenThe [facility] Physician GroupComment on above:Order Comment: Name Collection Type:: Clean-Voided MidstreamPerformed By: #### CUU, ADDONUAPLUS ####[address] Lauranovant health/nhrmcze, [place] USAOccult Blood,Urine1+NormalNegativeThe [facility] Physician GroupComment on above:Order Comment: Name Collection Type:: Clean-Voided MidstreamResult Comment: PERFORMED BY:[address] [place] [address] [address] [place]ACH[place], [place] [phone] MEDICAL JULIAN PADILLA M.D.Performed By: #### CUU, ADDONUAPLUS ####[address] Lauranovant health/nhrmcze, [place] USARBC,Fszee79-58Gcjwfb1-5Qtr [facility] Physician GroupComment on above:Order Comment: Name Collection Type:: Clean-Voided MidstreamPerformed By: #### CUU, ADDONUAPLUS ####[address] [address] [address], [place] USASpecificy Neptune,Urine1.510Qycusc9.001-1.030[facility] Comment on above:Order Comment: Name Collection Type:: Clean-Voided Midstream Performed By: #### CUU, ADDONUAPLUS ####[address] [address] [address] [place], [id number] USASquamous Epithelial Cell,Vmiaf26-38Vmhcus1-5Wzm [facility] Physician GroupComment on above:Order Comment: Name Collection Type:: Clean-Voided MidstreamPerformed By: #### CUU, ADDONUAPLUS ####[address] Valentínnov[facility] health/nhrmcze, [place] USAUrobilinogen,UrineNormalNormal NormalThe [facility] Physician GroupComment on above:Order Comment: Name Collection Type:: Clean-Voided MidstreamPerformed By: #### CUU, ADDONUAPLUS ####[address] USAWBC CLUMP, UrineManyNormalNone SeenThe [facility] Physician GroupComment on above: Order Comment: Name Collection Type:: Clean-Voided MidstreamPerformed By: #### CUU, ADDONUAPLUS ####[place] [id number] USAWBC,UrineInnumerableNormal0-4The [facility] Physician GroupComment on above:Order Comment: Name Collection Type:: Clean-Voided MidstreamPerformed By: #### CUU, ADDONUAPLUS ####[address] USAECG 12 lead ECGon 84-30-1825QNP 12 lead ECGNoAtrium Health Mercy Physician GroupEosinophils [#/volume] in Blood by Automated count Ordered By: Da Lozano on 91-02-2916Aafxhqbpugb (Bld) [#/Vol]0.3 10*3/uL Normal0.0-0.45[facility] CenterComment on above:Performed By: #### CBC, BMP ####[address]#### FRUC ####[facility] ,Eosinophils/100 leukocytes in Blood by Automated countOrdered By: Da Lozano on 71-62-7908Jphnlpwpjgb/100 WBC (Bld)2.8 %Normal.[facility] CenterComment on above:Performed By: #### CBC, BMP ####[place] [address] [place]#### FRUC ####[facility] ,Epithelial cells.non-squamous [#/area] in Urine sediment by Automated countOrdered By: Da Lozano on 75-22-5256Vnqbwgljot cells.non-squamous Auto (Urine sed) [#/Area]3-4 [HPF]High None SeenUniversity Hospitals Elyria Medical CenterEpithelial cells.squamous [#/area] in Urine sediment by Automated countOrdered By: Da Lozano on 03-03-2025 Epithelial cells.squamous Auto (Urine sed) [#/Area]10-19 [HPF]High0-2FMemorial Health SystemErythrocyte distribution width [Ratio] by Automated count Ordered By: Da Lozano on 26-31-2107Rkvkkoeaauv distribution width (RBC) [Ratio]16.2 %High11.9-15.3FMemorial Health SystemComment on above: Performed By: #### CBC, BMP ####[address]#### FRUC ####[facility] ,Erythrocytes [#/area] in Urine sediment by Automated countOrdered By: Da Lozano on 38-10-3422MZT Auto (Urine sed) [#/Area]10-19 [HPF]High0-4FMemorial Health SystemErythrocytes [#/volume] in Blood by Automated countOrdered By: Da Lozano on 33-53-9047UES (Bld) [#/Vol]3.92 10*6/uLNormal3.60-5.00 [facility] CenterComment on above:Performed By: #### CBC, BMP ####[address]#### FRUC ####[facility] ,Fructosamineon 01-95-8305Mvjrugulwqrn216 umol/L Normal0-285The [facility] Physician GroupComment on above:Result Comment: Published reference interval for apparently healthy subjects between age 20 and 60 is 205 - 285 umol/L and in a poorly controlled diabetic population is 228 - 563 umol/L with a mean of 396 umol/L. Performed at: - [facility] [id number] Health Safety Manager:Mohan Talbert PhD, Phone: [phone] BY:[address] [place], [place] [phone] MEDICAL DIRECTORALINA PADILLA M.D.Performed By: #### CBC, BMP ####[facility] [address] [place] [address] [place]#### FRUC ####[facility] ,Fructosamine [Moles/volume] in Serum or PlasmaOrdered By: Da Lozano on 82-59-5791Lqglrafkkqrd [Moles/Vol] 280 umol/L0-285[facility] CenterComment on above:Published reference interval for apparently healthysubjects between age 20 and 60 is 205 - 285 umol/L and in apoorly controlled diabetic population is 228 - 563 umol/Lwith a mean of 396 umol/L.Performed at: [address] [id number] Director: Mohan Talbert PhD, Phone: [phone] Glomerular filtration rate [Volume Rate/Area] in Serum, Plasma or Blood by CreatinineOrdered By: Da Lozano on 63-72-6159Cnglypaged filtration rate [Volume Rate/Area] in Serum, Plasma or Blood by Gdooeejarh53.714 mL/MinUniversity Hospitals Elyria Medical CenterGlucose [Mass/volume] in Serum or PlasmaOrdered By: Da Lozano on 26-62-3859Nlmjplc [Mass/Vol]125 mg/vTPaoe62-905UjskixiluUniversity Hospitals Elyria Medical CenterComment on above:ADA recommended reference rangeRandom Glucose Reference Range is dependent on time and content of last meal. Glucose of more than 200 mg/dL in a nonstressed, ambulatory subject supports the diagnosisof Diabetes Mellitus.Result Comment: Random Glucose Reference Range is dependent on time and content of last meal. Glucose of more than 200 mg/dL in a nonstressed, ambulatory subject supports the diagnosis of Diabetes Mellitus. ADA recommended reference rangePerformed By: #### CBC, BMP ####[facility] [id number] [place]#### FRUC ####[facility] ,Glucose [Mass/volume] in Urine by Test stripOrdered By: Da Lozano on 76-77-7910Humupup Test strip (U) [Mass/Vol]Normal mg/dLNormal [facility] Medical CenterHematocrit [Volume Fraction] of Blood by Automated countOrdered By: Da Lozano on 01-65-3789Rqmketuwmw (Bld) [Volume fraction]39.5 %Ymynsa56.0-46.4FMemorial Health SystemComment on above:Performed By: #### CBC, BMP ####[address] [place] [address] [place]#### FRUC ####[facility] ,Hemoglobin Test strip Ql (U)Ordered By: Da Lozano on 96-31-0919Zaedyxbjzo Ql (U)1+High NegativeUniversity Hospitals Elyria Medical CenterHemoglobin [Mass/volume] in Blood Ordered By: Da Lozano on 06-80-8314Awacgfhhof (Bld) [Mass/Vol]12.8 g/dL Umlfjq96.8-15.4FMemorial Health SystemComment on above:Performed By: #### CBC, BMP ####[place] [address] [place]#### FRUC ####[facility] ,Hyaline casts [#/area] in Urine sediment by Automated countOrdered By: Da Lozano on 56-83-1810Myggmpe casts Auto (Urine sed) [#/Area]None [LPF]0-8[facility] Ketones [Presence] in Urine by Test stripOrdered By: Da Lozano on 23-51-0589Ggeerqf Ql (U)NegativeNormalNegativeUniversity Hospitals E[facility] Comment on above:Order Comment: Name Collection Type:: Clean-Voided Midstream Performed By: #### CUU, ADDONUAPLUS ####[address] USALeukocyte clumps [Presence] in Urine by Automated Ordered By: Da Lozano on 37-56-1700Ptthctcso clumps Auto Ql (U)Many [LPF] HighNone SeenUniversity Hospitals Elyria Medical CenterLeukocyte esterase [Presence] in Urine by Test stripOrdered By: Da Lozano on 48-74-5992Vxynhkhzk esterase Test strip Ql (U)4+NormalNegativeUniversity Hospitals Elyria Medical CenterComment on above:Order Comment: Name Collection Type:: Clean-Voided MidstreamPerformed By: #### CUU, ADDONUAPLUS ####[facility] [place], [place] USALeukocytes [#/area] in Urine sediment by Automated countOrdered By: Da Lozano on 26-00-8247PVL Auto (Urine sed) [#/Area] Innumerable [HPF]High0-4FMemorial Health SystemLeukocytes [#/volume] corrected for nucleated erythrocytes in Blood by Automated counOrdered By: Da Lozano on 83-14-1148WYL corrected for nucl RBC Auto (Bld) [#/Vol]10.2 10*3/uL3.8-11.6FMemorial Health SystemLeukocytes [#/volume] in Blood by Automated countOrdered By: Da Lozano on 51-08-5627QBS (Bld) [#/Vol]10.2 10*3/uLNormal3.8-11.6FMemorial Health SystemComment on above: Performed By: #### CBC, BMP ####[place] [address] [place]#### FRUC ####[facility] ,Lymphocytes [#/volume] in Blood by Automated countOrdered By: Da Lozano on 03-03-2025 Lymphocytes (Bld) [#/Vol]2.1 10*3/uLNormal1.00-4.8[facility] CenterComment on above:Performed By: #### CBC, BMP ####[place] [address] [place]#### FRUC ####[facility] ,Lymphocytes/100 leukocytes in Blood by Automated countOrdered By: Da Lozano on 19-56-7467Jutnkwvnqil/100 WBC (Bld)21.0 %Normal.[facility] Medical CenterComment on above:Performed By: #### CBC, BMP ####[facility] [place] [address] [place]#### FRUC ####[facility] ,MCH [Entitic mass] by Automated countOrdered By: Da Lozano on 17-02-7561YZK (RBC) [Entitic mass]32.8 tmXhdrfy16.7-34.3 [facility] CenterComment on above:Performed By: #### CBC, BMP ####[place] [address] [place]#### FRUC ####[facility] ,MCHC Auto (RBC) [Mass/Vol]Ordered By: Da Lozano on 75-84-1085JCMQ (RBC) [Mass/Vol]32.5 g/dL32.0-35.0[facility] Medical CenterMCV [Entitic volume] by Automated countOrdered By: Da Lozano on 93-97-8999UWZ (RBC) [Entitic vol]100.8 cSOzfs74-315BzzfkxdvrUniversity Hospitals Elyria Medical CenterComment on above:Performed By: #### CBC, BMP ####[place] [address] [place]#### FRUC ####[facility] ,Monocytes [#/volume] in Blood by Automated countOrdered By: Da Lozano on 09-98-5615Nwncnfzqj (Bld) [#/Vol]0.9 10*3/uLHigh0.0-0.8[facility] CenterComment on above:Performed By: #### CBC, BMP ####[place] [address] [place]#### FRUC ####[facility] ,Monocytes/100 leukocytes in Blood by Automated countOrdered By: Da Lozano on 84-96-9851Heroottpq/100 WBC (Bld)8.4 %Normal .[facility] CenterComment on above:Performed By: #### CBC, BMP ####[facility] [place] [address] [place]#### FRUC ####[facility] ,Mucus [Presence] in Urine by AutomatedOrdered By: Da Lozano on 88-41-3716Gkfyx Auto Ql (U)Rare [LPF][facility] Medical CenterNeutrophils [#/volume] in Blood by Automated countOrdered By: Da Lozano on 22-18-2585Twbysrpesbr (Bld) [#/Vol]6.8 10*3/uLNormal1.8-7.7 [facility] CenterComment on above:Performed By: #### CBC, BMP ####[place] [address] [address]#### FRUC ####[facility] ,Neutrophils/100 leukocytes in Blood by Automated countOrdered By: Da Lozano on 95-10-0082Nleujsverhe/100 WBC (Bld)67.0 % Normal.[facility] Medical CenterComment on above:Performed By: #### CBC, BMP ####[address] [place] [address] [place]#### FRUC ####[facility] ,Nitrite Test strip Ql (U)Ordered By: Da Lozano on 75-16-8806Htyvvkg Ql (U)NegativeNegativeUniversity Hospitals Elyria Medical CenterNo Panel InformationOrdered By: Da Lozano on 59-04-5528Nwrxkyoa Creatinine Clearance (ChemN/[facility] HospitalN/[facility] Memorial HospitalNucleated erythrocytes [Presence] in Blood by Automated countOrdered By: Da Lozano on 39-83-8762Chbezbies RBC Auto Ql (Bld)0.1 /100{WBC}0-0.5FMemorial Health SystemPlatelet mean volume [Entitic volume] in Blood by Automated countOrdered By: Da Lozano on 03-03-2025 Platelet mean volume (Bld) [Entitic vol]9.2 fLNormal6.3-10.7FMemorial Health SystemComment on above:Performed By: #### CBC, BMP ####[place] [address] [place]#### FRUC ####[facility] ,Platelets [#/volume] in Blood by Automated countOrdered By: Da Lozano on 27-19-5869Dnbxaugyp (Bld) [#/Vol]220 10*3/cXMqfxyo663-373TxvoyumisUniversity Hospitals Elyria Medical CenterComment on above:Performed By: #### CBC, BMP ####[place] [address] [place]#### FRUC ####[facility] ,Potassium [Moles/volume] in Serum or Plasma Ordered By: Da Lozano on 51-33-2105Tkqhylkav [Moles/Vol]4.9 mmol/LNormal 3.5-5.1FMemorial Health SystemComment on above:Performed By: #### CBC, BMP ####[address] A#### FRUC ####[facility] ,Protein [Mass/volume] in Urine by Test stripOrdered By: Da Lozano on 92-20-3511Wsjqaxg (U) [Mass/Vol]100 mg/dL NormalNegativeUniversity Hospitals Elyria Medical CenterComment on above:Order Comment: Name Collection Type:: Clean-Voided MidstreamPerformed By: #### CUU, ADDONUAPLUS ####[address] USASerum or plasma anion gap determinationOrdered By: Da Lozano on 22-95-0675Vylmp gap [Moles/Vol]10.3 mmol/LNormal6.0-15.0[facility] Medical CenterComment on above:Performed By: #### CBC, BMP ####[place] [address] [place]#### FRUC ####[facility] ,Sodium [Moles/volume] in Serum or PlasmaOrdered By: Da Lozano on 55-95-7019Lwzgja [Moles/Vol]138 mmol/QTjlppb919-754QcwczctckUniversity Hospitals Elyria Medical CenterComment on above:Performed By: #### CBC, BMP ####[place] [address] [address]#### FRUC ####[facility] ,Specific gravity Test strip (U) [Rel density]Ordered By: Da Lozano on 77-41-1471Kyvuymqu gravity (U) [Rel density]1.0121.001-1.030[facility] Medical CenterUrea nitrogen [Mass/volume] in Serum or PlasmaOrdered By: Da Lozano on 02-92-5749Frmp nitrogen [Mass/Vol]46 mg/dLHigh7-25[facility] Medical CenterComment on above:Performed By: #### CBC, BMP ####[address]#### FRUC ####[facility] ,Urine Cultureon 81-25-5303Dachujjd identified Cx Nom (U)Urine Culture Results >100,000 col/ml Mixed Bacterial Skin Contaminants 2 Days PERFORMED BY: [facility] [address] [place] [address] PATHOLOGIST TAG MAKER ALINA PADILLA M.D.NormalHca Florida Sarasota Doctors Hospital Physician GroupComment on above: Performed By: #### CUU, ADDONUAPLUS ####[address] [facility]ICAL CENTERUrine cultureOrdered By: Da Lozano on 17-64-4238Yghjhiku identified Cx Nom (U)[facility] Urobilinogen Test strip (U) [Mass/Vol]Ordered By: Da Lozano on 03-03-2025 Urobilinogen (U) [Mass/Vol]Normal mg/dLNormalUniversity Hospitals Elyria Medical CenterpH of Urine by Test stripOrdered By: Da Lozano on 13-79-2044zE (U)7.0 [pH] Normal5.0-9.0[facility] Medical CenterComment on above:Order Comment: Name Collection Type:: Clean-Voided MidstreamPerformed By: #### CARLITOS VELASCO ####[facility] [facility] CenterzeCHERRYV[place], [place]HCX[address] [facility] Erythrocyte distribution width Auto (RBC) [Ratio]Ordered By: Leroy Ashby on 04-53-1599Zsecnmdlshj distribution width (RBC) [Ratio]15.5 %High11.0-15.0 [facility] Medical CenterEstimated glomerular filtration rate (GFR) non- AmericanOrdered By: Leroy Ashby on 98-45-5729BWW/1.73 sq M.predicted among non-blacks MDRD (S/P/Bld) [Vol rate/Area]26 mL/min/{1.73_m2}Low>=60 mL/min/1.73m 2FMemorial Health SystemHematocrit Auto (Bld) [Volume fraction]Ordered By: Leroy Ashby on 33-46-5066Dxrnxqsyrz (Bld) [Volume fraction] 36.6 %36.0-48.0[facility] Medical CenterHemoglobin [Mass/volume] in BloodOrdered By: Leroy Ashby on 40-84-1456Zfijugfwuj (Bld) [Mass/Vol]11.5 g/dL Low12.0-16.0[facility] Medical CenterIron binding capacity [Mass/volume] in Serum or PlasmaOrdered By: Leroy Ashby on 61-65-1006Ddji binding capacity [Mass/Vol]211.0 ug/zLEbx068.0-450.0[facility] Medical CenterIron saturation [Mass Fraction] in Serum or PlasmaOrdered By: Leroy Ashby on 38-03-4174Jrmk saturation [Mass fraction]19.4 %[facility] Laboratory - Chemistry and Chemistry - challengeOrdered By: Leroy Ashby on 09-63-5332Ynxsumz [Mass/Vol]2.8 g/dLLow3.4-5.0[facility] Calcium [Mass/Vol]9.5 mg/dL8.5-10.1FMemorial Health SystemChloride [Moles/Vol]98 mmol/V55-991JngcjoocdUniversity Hospitals Elyria Medical CenterCO2 [Moles/Vol]28.7 mmol/L21.0-32.0[facility] Medical CenterCreatinine [Mass/Vol]1.88 mg/dL High0.55-1.02[facility] Medical CenterFerritin [Mass/Vol]187.0 ng/mL 8.0-252.0[facility] Medical CenterGFR/1.73 sq M.predicted MDRD (S/P/Bld) [Vol rate/Area]31 mL/min/{1.73_m2}Low>=60 mL/min/1.73m 2FMemorial Health SystemGlucose [Mass/Vol]206 mg/pDYenb79-391YyooxrasfUniversity Hospitals Elyria Medical CenterIron [Mass/Vol]41.0 ug/dLLow50.0-170.0[facility] Potassium [Moles/Vol]4.1 mmol/L3.5-5.1FCleveland Clinic [facility] General Lodi Hospitalodium [Moles/Vol]135 mmol/QTxf862-808KjhailvynUniversity Hospitals Elyria Medical CenterUrate [Mass/Vol] 3.8 mg/dL2.6-6.0[facility] Medical CenterUrea nitrogen [Mass/Vol]59.0 mg/dLHigh7.0-18.0[facility] Medical CenterUrea nitrogen/Creatinine [Mass ratio]31.4 mg/mgUniversity Hospitals Elyria Medical CenterBilirubin Ql (U)Negative NEGATIVEUniversity Hospitals Elyria Medical CenterGlucose (U) [Mass/Vol]NegativeNEGATIVE [facility] CenterKetones Ql (U)NegativeNEGATIVEUniversity Hospitals Elyria Medical CenterpH (U)6.5 [pH]5.0-9.0[facility] Specific gravity (U) [Rel density]1.0151.005-1.025[facility] CenterLaboratory - Specimen informationOrdered By: Leroy Ashby on 02-07-2025 Appearance (U)CLOUDYAbnormalCLEARFMemorial Health SystemColor (U)BROWN AbnormalYELLOWUniversity Hospitals Elyria Medical CenterLaboratory - UrinalysisOrdered By: Leroy Ashby on 37-36-4532Fcomgwobo esterase Test strip Ql (U)LARGEAbnormal NEGATIVEUniversity Hospitals Elyria Medical CenterMucus Ql (Urine sed)TRACEAbnormalNONE SEENUniversity Hospitals Elyria Medical CenterNitrite Ql (U)NegativeNEGATIVEUniversity Hospitals Elyria Medical CenterProtein (U) [Mass/Vol]136.2 mg/dLHigh<=11.9[facility] CenterProtein Ql (U)300 mg/dLAbnormalNEG/TRACEUniversity Hospitals Elyria Medical CenterLeukocytes [#/volume] corrected for nucleated erythrocytes in Blood by Automated counOrdered By: Leroy Ashby on 44-72-6352UKL corrected for nucl RBC Auto (Bld) [#/Vol]10.6 10 3/uL4.0-11.0[facility] HospitalH Auto (RBC) [Entitic mass]Ordered By: Leroy Ashby on 02-07-2025 MCH (RBC) [Entitic mass]31.9 pg26.7-34.0[facility]icothe HospitalHC Auto (RBC) [Mass/Vol]Ordered By: Leroy Ashby on 32-77-7755NYSE (RBC) [Mass/Vol] 31.4 g/dL29.9-35.2FMemorial Health SystemMCV Auto (RBC) [Entitic vol] Ordered By: Leroy Ashby on 80-41-4004JJA (RBC) [Entitic vol]101.4 fLHigh 81.0-99.0[facility] CenterNo Panel InformationOrdered By: Leroy Ashby on 347152-[place] Vitamin D Total72.5 ng/mLUniversity Hospitals Elyria Medical CenterComment on above:<20 ng/mL Vit D pbrmpyctn06-<30 ng/mL Vit D bbvokluspdrm01-650 ng/mL Vit D sufficient>100 ng/mL Potential Toxicity Parathyroid Hormone (Intact)43 pg/cL44-52EpadyeabeUniversity Hospitals Elyria Medical Center Comment on above:Performed at: - Lab[address] [id number] Director: Mohan Talbert PhD, Phone: [phone] Level 4.2 mg/dL2.6-4.7FMemorial Health System43 pg/kH00-28DdjdtusccUniversity Hospitals Elyria Medical Center72.5 ng/mLUniversity Hospitals Elyria Medical Center187.0 ng/mL8.0-252.0 [facility]3.8 mg/dL2.6-6.0[facility]41.0 ug/dLLow50.0-170.0[facility]2.8 g/dLLow3.4-5.0 [facility]31.4FMemorial Health System59.0 mg/dL High7.0-18.0[facility]9.5 mg/dL8.5-10.1FMemorial Health System98 mmol/Z99-968JngeiwirsUniversity Hospitals Elyria Medical Center28.7 mmol/L 21.0-32.0[facility]1.88 mg/dLHigh0.55-1.02[facility]31Low>=60 mL/min/1.73m 2FMemorial Health System 206 mg/bUDxhv78-490DvjzogjfrUniversity Hospitals Elyria Medical Center4.1 mmol/L3.5-5.1FMemorial Health System135 mmol/WFph563-885XreogfvuhUniversity Hospitals Elyria Medical Center4.2 mg/dL2.6-4.7FMemorial Health SystemUrine BacteriaLARGE #/HPFAbnormal NONE SEENUniversity Hospitals Elyria Medical CenterUrine Occult BloodLARGEAbnormal NEGATIVEUniversity Hospitals Elyria Medical CenterUrine Other CastsNONE SEEN #/LPFNONE SEENUniversity Hospitals Elyria Medical CenterUrine Other CrystalsNone Seen #/HPFNone [facility] HospitalUrine Random Mmtcvhcdzi35.06 mg/dL 20.00-300.00[facility] Medical CenterUrine RBC5-10 #/HPFAbnormal0-2 [facility] Medical CenterUrine Squamous Epithelial CellsFEW #/LPF AbnormalNONE/RAREUniversity Hospitals Elyria Medical CenterUrine Transitional Epithelial CellsRARE #/LPFAbnormalNONE SEENUniversity Hospitals Elyria Medical CenterUrine UrobilinogenN EU/dL0.2-1.0[facility] Medical CenterUrine BOP47-081 #/HPF AbnormalNONE [facility]NONE SEEN #/LPFNONE SEEN [facility]24.06 mg/dL20.00-300.00[facility] CenterNone Seen #/HPFNone [facility] HospitalLARGE #/HPFAbnormalNONE [facility]136.2 mg/dLHigh<=11.9 [facility] CenterNegativeNEGATIVEUniversity Hospitals Elyria Medical CenterLARGEAbnormalNEGATIVEUniversity Hospitals Elyria Medical CenterCLOUDYAbnormalCLEAR [facility] CenterBROWNAbnormalYELLOWUniversity Hospitals Elyria Medical CenterTRACEAbnormalNONE [facility]6.55.0-9.0[facility]300 mg/dLAbnormalNEG/TRACEUniversity Hospitals Elyria Medical Center5-10 #/HPFAbnormal0-2FMemorial Health System1.0151.005-1.025 [facility] CenterFEW #/LPFAbnormalNONE/RAREUniversity Hospitals Elyria Medical CenterRARE #/LPFAbnormalNONE UK HealthcareN EU/dL0.2-1.0[facility]75-100 #/HPFAbnormalNONE SEEN [facility] Medical CenterPlatelet mean volume Auto (Bld) [Entitic vol] Ordered By: Leroy Ashby on 17-43-7121Jxmgtznh mean volume (Bld) [Entitic vol] 11.7 fL9.5-13.5FMemorial Health SystemPlatelets Auto (Bld) [#/Vol] Ordered By: Leroy Isma on 89-50-9205Guanaxgcg (Bld) [#/Vol]213 10 3/pS688-031 [facility] CenterRBC Auto (Bld) [#/Vol]Ordered By: Leroy Isma on 49-82-3682ZTY (Bld) [#/Vol]3.61 10 6/uLLow4.20-5.40Knox Community Hospitalerum or plasma anion gap determinationOrdered By: Leroy Ashby on 43-03-4975Nhtjb gap [Moles/Vol]12.4 mmol/LFMemorial Health SystemUrine protein/creatinine ratioOrdered By: Leroy Ashby on 95-40-7793Asbgaeu/Creatinine (U) [Ratio]5.66[facility] CenterGlucose mean value [Mass/volume] in Blood Estimated from glycated hemoglobinOrdered By: Da Lozano on 06-16-1246Sdiqsos glucose Estimated from glycated hemoglobin (Bld) [Mass/Vol]160 mg/dLUniversity Hospitals Elyria Medical CenterHemoglobin A1c percentage Ordered By: Da Lozano on 44-82-0341WfL7x (Bld) [Mass fraction]7.2 %High 4.5-6.2FMemorial Health SystemComment on above:ADA RECOMMENDED LIMIT 4.0 - 6.0ADA THERAPEUTIC TARGET < 7.0ACTION SUGGESTED> 7.0Hemoglobin [Mass/volume] in BloodOrdered By: Da Lozano on 68-98-1593Eipcbezfyy (Bld) [Mass/Vol]11.8 g/dLLow12.0-16.0[facility] CenterLaboratory - Chemistry and Chemistry - challengeOrdered By: Da Lozano on 01-25-2025 Albumin [Mass/Vol]2.7 g/dLLow3.4-5.0[facility] CenterNo Panel InformationOrdered By: Da Loznao on 51-99-776080035538-Hzoivkn Vitamin D Total 62.6 ng/mLUniversity Hospitals Elyria Medical CenterComment on above:<20 ng/mL Vit D wnqiiajgv30-<30 ng/mL Vit D hfpykkzvtwyr61-177 ng/mL Vit D sufficient>100 ng/mL Potential ToxicityMiscellaneous TestCOMMENT.[facility] Comment on above:Test Ordered: [id number] Nicotine and Metabolite, QuantNicotine <1.0 ng/mL Reference Range: .Thistest was developed and its performance characteristicsdetermined by [employer]. It has not been cleared orapproved by the Food and Drug Administration.Nicotine levels greater than 2.0 are consistent with theuse of tobacco or tobacco cessation products.Cotinine <1.0 ng/mL Reference Range: .This test was developed and its performance characteristicsdetermined by [employer]. It has not been cleared orapproved by the Food and Drug Administration.Cotinine levels greater than 20.0 are consistent withtheuse of tobacco or tobacco cessation products.Performed at: [address] [id number] Director: Navneet Carcamo MD, Phone: [phone] at: [address] [place] [id number] Director: Mohan Talbert PhD, Phone: [phone]. [facility]62.6 ng/mLUniversity [facility]als [facility] Medical Center2.7 g/dLLow3.4-5.0[facility] Medical CenterHbA1c HPLC (Bld) [Mass fraction] Ordered By: Stefan Best on 46-26-0992RcH2k (Bld) [Mass fraction]7.6 %[facility] CenterLaboratory - Chemistry and Chemistry - challengeon 24-34-1065Bovwhirfh Ql (U)NegativeUniversity Hospitals Elyria Medical CenterGlucose (U) [Mass/Vol]NegativeUniversity Hospitals Elyria Medical CenterKetones Ql (U)Negative [facility] CenterpH (U)6.5 [pH][facility] Specific gravity (U) [Rel density]1.005[facility] Urobilinogen (U) [Mass/Vol]0.2 mg/dLUniversity Hospitals Elyria Medical CenterLaboratory - Specimen informationon 71-20-5102Bdslklwjbf (U)cloudyUniversity Hospitals Elyria Medical CenterColor (U)YellowUniversity Hospitals Elyria Medical CenterLaboratory - Urinalysison 28-71-2784Tjrgremqo esterase Test strip Ql (U)+++[facility] CenterNitrite Ql (U)NegativeUniversity Hospitals Elyria Medical CenterProtein Ql (U)+++[facility] CenterNo Panel Informationon 34-49-7646Ssxim Occult Blood++[facility] CenterUrine Cultureon 11-15-2024 Bacteria identified Cx Nom (U)NormalThe Cannon Memorial Hospital Physician GroupComment on above:Performed By: #### CUU ####[facility] Gqn[address] StreetUrine cultureOrdered By: Stefan Best on 11-15-2024 Bacteria identified Cx Nom (U)2 DaysUniversity Hospitals Elyria Medical CenterCapillary blood glucose measurement by glucometer (mass/volume)Ordered By: Yaniv Natarajan on 34-52-3257Iepojtq [Mass/Vol]172 mg/dLNoMarymount Hospital Comment on above:Random Glucose Reference Range is dependent on time and content of last meal. Glucose of more than 200 mg/dL in a nonstressed, ambulatory subject supports the diagnosis of Diabetes Mellitus.Result Comment: Random Glucose Reference Range is dependent on time and content of last meal. Glucose of more than 200 mg/dL in a nonstressed, ambulatory subject supports the diagnosis of Diabetes Mellitus.Performed By: #### GLULS ####Point of Care testing,Glucose Glucometer (dC) [Mass/Vol]Ordered By: Yaniv Natarajan on 58-36-8055Ovihxug [Mass/Vol]Capillary blood glucose measurement by glucometer (mass/volume)[facility] Medical CenterComment on above:Random Glucose Reference Range is dependent on time and content of last meal. Glucose of more than 200 mg/dL in a nonstressed, ambulatory subject supports the diagnosis of Diabetes Mellitus.Glucose Poct Glucometerson 72-98-5471Srgycww0Ooi2: Cleaned [facility] Physician GroupComment on above:Result Comment: PERFORMED BY:[place] [address] [address] [place], [place] [phone] MEDICAL DIRECTORRADHA DURAN M.D. Performed By: #### GLULS ####Point of Care testing,Ggpbagb9XnybvrPehTampa Shriners Hospital Physician GroupComment on above:Result Comment: Glu2: WILL NOTIFY /Arlynformed By: #### GLULS ####Point of Care testing,Vnzckep1Yqjbcll [facility] Physician GroupComment on above:Result Comment: PERFORMED BY:[place] [address] [place], [place] [phone] MEDICAL DIRECTORRADHA DURAN M.D.Performed By: #### GLULS ####Point of Care testing,Glucose [Mass/Vol]217 mg/dLTampa Shriners Hospital Physician Group Comment on above:Result Comment: Random Glucose Reference Range is dependent on time and content of last meal. Glucose of more than 200 mg/dL in a nonstressed, ambulatory subject supports the diagnosis of Diabetes Mellitus.Performed By: #### GLULS ####Point of Care testing,No Panel InformationOrdered By: Yaniv Natarajan on 39-60-4731Fcanwtk Glucose CommentGlu2: cleaned [facility] HospitalBedside Glucose #2 CommentCleaned [facility] HospitalX-ray reportOrdered By: Earnest Iraheta on 96-37-4465Fqntn reportSELECT [facility]ICAL [facility] Main Cost [address] [place] [address] XRay Report Signed Patient: Lexi Tatum MR#: [id number] : 1945 Acct:[id number] Age/Sex: 79 / F ADM Date: 5 Loc: [place] Room: Type: [facility] Attending Dr: Yaniv Natarajan MD Copies to: Yaniv Natarajan MD~ Ordering Provider: Yaniv Natarajan MD Date of Service: 10/22/24 XR/XR KUB: Pre Op KUB: CLINICAL INFORMATION: Preop. Hydronephrosis. COMPARISON: Intraoperative study 2024 FINDINGS: Bilateral double-J ureteral stents are identified. Presumed vascular calcifications are seen projecting over the renal shadows. No definitive ureteral calculus is seen. Presumed phlebolithsare seen within the pelvis. Nobowel obstruction or free air. Osseous structures demonstrate degenerative change. XR/XR KUB IMPRESSION: DOUBLE J URETERAL STENTS ARE SEEN BILATERALLY WITHOUT DEFINITIVE URINARY TRACT CALCULUS. Impression dictated by: Earnest Iraheta Jr., D.O.10/22/2024 8:55 AM Dictation Location: [place] [address] Transcribed By: [facility] 10/22/24 0855 Dictated By: Earnest Iraheta Jr, DO 10/22/24 0854 Signed By: 10/22/24 0855 [facility] CenterXR KUBon 79-28-6189MP KUBNCatawba Valley Medical Center Physician GroupXR KUBNCatawba Valley Medical Center Physician GroupBasophils Auto (Bld) [#/Vol]on 54-73-2092Rluvagwtq (Bld) [#/Vol]Automated basophil count0.0-0.1 [facility] CenterBasophils/100 WBC Auto (Bld)on 09-27-2024 Basophils/100 WBC (Bld)Automated basophil %0.2-2.0[facility] CenterEosinophils/100 WBC Auto (Bld)on 45-08-6426Jpeydjvyndf/100 WBC (Bld) Automated eosinophil %Low0.9-7.0[facility] CenterErythrocyte distribution width Auto (RBC) [Ratio]on 65-82-7383Iqaaopktvyv distribution width (RBC) [Ratio]Erythrocyte distribution width [Ratio] by Automated countHigh 11.0-15.0[facility] CenterEstimated glomerular filtration rate (GFR) non- Americanon 26-90-9937TDQ/1.73 sq M.predicted among non-blacks MDRD (S/P/Bld) [Vol rate/Area]Estimated glomerular filtration rate (GFR) non- AmericanLow>=60 mL/min/1.73m 2FMemorial Health SystemGlobulin Calc (S) [Mass/Vol]on 95-14-3242Vjjwrbdm (S) [Mass/Vol]Serum globulin measurement by calculation (mass/volume)[facility] CenterGlucose mean value [Mass/volume] in Blood Estimated from glycated hemoglobinon 77-11-2793Ciyudrx glucose Estimated from glycated hemoglobin (Bld) [Mass/Vol] Glucose mean value [Mass/volume] in Blood Estimated from glycated hemoglobin [facility] CenterHematocrit Auto (Bld) [Volume fraction]on 95-26-1215Gdzarqtkvh (Bld) [Volume fraction]Hematocrit [Volume Fraction] of Blood by Automated llbejHng94.0-48.0[facility] CenterHemoglobin A1c percentageon 37-85-2636BvA4p (Bld) [Mass fraction]Hemoglobin A1c percentage High4.5-6.2FMemorial Health SystemComment on above:ADA RECOMMENDED LIMIT 4.0 - 6.0ADA THERAPEUTIC TARGET < 7.0ACTION SUGGESTED> 7.0Hemoglobin [Mass/volume] in Bloodon 49-00-6813Jygalofhmn (Bld) [Mass/Vol]Hemoglobin [Mass/volume] in HunziRhl88.0-16.0[facility] CenterLaboratory - Chemistry and Chemistry - challengeon 98-13-8495Ygqptns [Mass/Vol]2.3 g/dLLow 3.4-5.0[facility] CenterALP [Catalytic activity/Vol]52 U/L46-116 [facility] CenterALT [Catalytic activity/Vol]U/WCpf98-24 [facility] CenterAST [Catalytic activity/Vol]9 U/VRau45-61 [facility] CenterBilirubin [Mass/Vol]0.3 mg/dL0.2-1.0[facility] CenterCalcium [Mass/Vol]8.8 mg/dL8.5-10.1FMemorial Health SystemChloride [Moles/Vol]105 mmol/K16-333WylmtfeusUniversity Hospitals Elyria Medical CenterCO2 [Moles/Vol]26.7 mmol/L21.0-32.0[facility] Creatinine [Mass/Vol]1.85 mg/dLHigh0.55-1.02[facility] GFR/1.73 sq M.predicted MDRD (S/P/Bld) [Vol rate/Area]32 mL/min/{1.73_m2}Low>=60 mL/min/1.73m 2FMemorial Health SystemGlucose [Mass/Vol]153 mg/dLHigh 74-106[facility] CenterMagnesium [Mass/Vol]2.0 mg/dL1.8-2.4 [facility] CenterPotassium [Moles/Vol]3.7 mmol/L3.5-5.1FMemorial Health SystemProtein [Mass/Vol]6.3 g/dLLow6.4-8.2FCleveland Clinic Akron General Lodi Hospitalodium [Moles/Vol]141 mmol/Y232-516WdqezhtktUniversity Hospitals Elyria Medical CenterUrea nitrogen [Mass/Vol]53.0 mg/dLHigh7.0-18.0[facility] CenterUrea nitrogen/Creatinine [Mass ratio]28.6 mg/mgUniversity Hospitals Elyria Medical CenterLaboratory - Hematology and Cell countson 80-88-0566Dftwxxhj granulocytes/100 WBC (Bld)0.4 %0.0-0.5FMemorial Health System Leukocytes [#/volume] corrected for nucleated erythrocytes in Blood by Automated counon 41-26-9442YCN corrected for nucl RBC Auto (Bld) [#/Vol]Leukocytes [#/volume] corrected for nucleated erythrocytes in Blood by Automated counHigh 4.0-11.0[facility] CenterLymphocytes Auto (Bld) [#/Vol]on 68-70-7130Zurkhhzuibh (Bld) [#/Vol]Lymphocytes [#/volume] in Blood by Automated count1.2-3.8[facility] CenterLymphocytes/100 WBC Auto (Bld)on 55-39-9119Ylckfthbmkw/100 WBC (Bld)Lymphocytes/100 leukocytes in Blood by Automated xmcagFhd34.5-60.0[facility] HospitalH Auto (RBC) [Entitic mass]on 80-14-8369CKC (RBC) [Entitic mass]MCH [Entitic mass] by Automated count26.7-34.0[facility] HospitalHC Auto (RBC) [Mass/Vol]on 01-42-7832XSXN (RBC) [Mass/Vol]MCHC [Mass/volume] by Automated count29.9-35.2FOhioHealth Marion General HospitalV Auto (RBC) [Entitic vol]on 49-43-4493XNH (RBC) [Entitic vol]MCV [Entitic volume] by Automated countHigh 81.0-99.0[facility] CenterMonocytes Auto (Bld) [#/Vol]on 48-43-2100Gchhmkxkz (Bld) [#/Vol]Automated blood monocyte countHigh0.3-0.8 [facility] CenterMonocytes/100 WBC Auto (Bld)on 09-27-2024 Monocytes/100 WBC (Bld)Automated monocyte %1.7-12.0[facility] CenterNeutrophils Auto (Bld) [#/Vol]on 95-62-8760Zpvfgmybwds (Bld) [#/Vol] Neutrophils [#/volume] in Blood by Automated countHigh1.4-6.5FMemorial Health SystemNeutrophils/100 WBC Auto (Bld)on 03-39-5132Soiuulotewl/100 WBC (Bld)Automated neutrophil %43.0-75.0[facility] CenterNo Panel Informationon 39-11-7592Bsyivlsfmjj # (Auto)0.1 10 3/uL0.0-0.7[facility] Medical CenterImmature Granulocyte # (Auto)0.04 10 3/uLHigh0.00-0.03[facility] CenterPlatelet mean volume Auto (Bld) [Entitic vol]on 28-40-7325Ijspghzw mean volume (Bld) [Entitic vol]Platelet mean volume [Entitic volume] in Blood by Automated count9.5-13.5FMemorial Health System Platelets Auto (Bld) [#/Vol]on 12-27-8926Kkvajujdh (Bld) [#/Vol]Platelets [#/volume] in Blood by Automated vkgyg771-774NdlfsuopxUniversity Hospitals Elyria Medical Center RBC Auto (Bld) [#/Vol]on 98-44-8928OUN (Bld) [#/Vol]Erythrocytes [#/volume] in Blood by Automated countLow4.20-5.40[facility] Hospitalerum or plasma albumin/globulin mass ratioon 93-77-7693Luzaosj/Globulin [Mass ratio] Serum or plasma albumin/globulin mass ratioUniversity Hospitals Elyria Medical Center Serum or plasma anion gap determinationon 41-85-7202Sltkp gap [Moles/Vol]Serum or plasma anion gap determinationUniversity Hospitals Elyria Medical CenterBasophils Auto (Bld) [#/Vol]on 45-27-1735Cljyfyyem (Bld) [#/Vol]Automated basophil count 0.0-0.1FMemorial Health SystemBasophils/100 WBC Auto (Bld)on 42-05-1900Duyxesrrq/100 WBC (Bld)Automated basophil %0.2-2.0[facility] CenterEosinophils/100 WBC Auto (Bld)on 26-51-1614Iuxoqzqrapl/100 WBC (Bld)Automated eosinophil %0.9-7.0[facility] CenterErythrocyte distribution width Auto (RBC) [Ratio]on 55-40-6573Ggsyymqoawz distribution width (RBC) [Ratio]Erythrocyte distribution width [Ratio] by Automated countHigh 11.0-15.0[facility] CenterEstimated glomerular filtration rate (GFR) non- Americanon 62-31-1033SYJ/1.73 sq M.predicted among non-blacks MDRD (S/P/Bld) [Vol rate/Area]Estimated glomerular filtration rate (GFR) non- AmericanLow>=60 mL/min/1.73m 2FMemorial Health System Hematocrit Auto (Bld) [Volume fraction]on 87-86-1051Ooyekabhlo (Bld) [Volume fraction]Hematocrit [Volume Fraction] of Blood by Automated count36.0-48.0 [facility] Medical CenterHemoglobin [Mass/volume] in Bloodon 09-26-2024 Hemoglobin (Bld) [Mass/Vol]Hemoglobin [Mass/volume] in YsrtfHum08.0-16.0 [facility] CenterLaboratory - Chemistry and Chemistry - challengeon 83-26-5568Ryatztl [Mass/Vol]9.5 mg/dL8.5-10.1FMemorial Health SystemChloride [Moles/Vol]100 mmol/I87-681TnrlpwcidUniversity Hospitals Elyria Medical CenterCO2 [Moles/Vol]27.9 mmol/L21.0-32.0[facility] Creatinine [Mass/Vol]2.12 mg/dLHigh0.55-1.02[facility] GFR/1.73 sq M.predicted MDRD (S/P/Bld) [Vol rate/Area]27 mL/min/{1.73_m2}Low>=60 mL/min/1.73m 2FMemorial Health SystemGlucose [Mass/Vol]205 mg/dLHigh 74-106[facility] CenterPotassium [Moles/Vol]4.7 mmol/L3.5-5.1 [facility] Hospitalodium [Moles/Vol]137 mmol/O274-701AcghqgoqdUniversity Hospitals Elyria Medical CenterUrea nitrogen [Mass/Vol]58.0 mg/dLHigh7.0-18.0[facility] CenterUrea nitrogen/Creatinine [Mass ratio]27.4 mg/mgUniversity Hospitals Elyria Medical CenterLaboratory - Hematology and Cell countson 09-26-2024 Immature granulocytes/100 WBC (Bld)0.7 %High0.0-0.5FMemorial Health SystemLeukocytes [#/volume] corrected for nucleated erythrocytes in Blood by Automated counon 91-51-1400DSW corrected for nucl RBC Auto (Bld) [#/Vol] Leukocytes [#/volume] corrected for nucleated erythrocytes in Blood by Automated counHigh4.0-11.0[facility] Medical CenterLymphocytes Auto (Bld) [#/Vol] on 58-08-9231Tkyyvciajbv (Bld) [#/Vol]Lymphocytes [#/volume] in Blood by Automated count1.2-3.8[facility] CenterLymphocytes/100 WBC Auto (Bld)on 75-05-6000Luwopffzifv/100 WBC (Bld)Lymphocytes/100 leukocytes in Blood by Automated cgfstBho79.5-60.0[facility] HospitalH Auto (RBC) [Entitic mass]on 81-36-7252EDR (RBC) [Entitic mass]MCH [Entitic mass] by Automated count26.7-34.0[facility] HospitalHC Auto (RBC) [Mass/Vol]on 09-42-6500ENLM (RBC) [Mass/Vol]MCHC [Mass/volume] by Automated count29.9-35.2FMemorial Health SystemMCV Auto (RBC) [Entitic vol]on 64-93-9727BCK (RBC) [Entitic vol]MCV [Entitic volume] by Automated countHigh 81.0-99.0[facility] CenterMonocytes Auto (Bld) [#/Vol]on 68-55-2509Kzxmhnzkt (Bld) [#/Vol]Automated blood monocyte countHigh0.3-0.8 [facility] CenterMonocytes/100 WBC Auto (Bld)on 09-26-2024 Monocytes/100 WBC (Bld)Automated monocyte %1.7-12.0[facility] CenterNeutrophils Auto (Bld) [#/Vol]on 43-76-5089Cnpmbrdvzwx (Bld) [#/Vol] Neutrophils [#/volume] in Blood by Automated countHigh1.4-6.5FMemorial Health SystemNeutrophils/100 WBC Auto (Bld)on 27-54-0658Jxroyymhkgn/100 WBC (Bld)Automated neutrophil %43.0-75.0[facility] CenterNo Panel Informationon 72-98-9116Vkaedaugrxe # (Auto)0.2 10 3/uL0.0-0.7FMemorial Health SystemImmature Granulocyte # (Auto)0.10 10 3/uLHigh0.00-0.03[facility] CenterTroponin I High Ukaqsotqiqd54.9 pg/mL4.0-51.3FMemorial Health SystemComment on above:CUT-OFF POINTS HAVE BEEN ESTABLISHED BASED ON THE FOURTHUNIVERSAL DEFINITION OF MYOCARDIAL INFARCTION. THE UPPERREFERENCE LIMIT (URL) OF TROPONIN, DEFINED THE 99THPERCENTILE OF cTnI DISTRIBUTION IN A REFERENCE POPULATION,HAS BEEN CONFIRMED THE DECISION THRESHOLD FOR MIDIAGNOSIS.99TH PERCENTILE = 51.4 PG/MLNOTE: HIGH-SENSITIVITY TROPONIN ASSAY IS NOT INTENDED TO BEUSED IN ISOLATION BUT SHOULD BE INTERPRETED IN CONJUNCTIONWITH OTHER DIAGNOSTIC AND CLINICAL INFORMATION.Platelet mean volume Auto (Bld) [Entitic vol]on 05-50-4928Icnpgnsp mean volume (Bld) [Entitic vol]Platelet mean volume [Entitic volume] in Blood by Automated count9.5-13.5 [facility] Medical CenterPlatelets Auto (Bld) [#/Vol]on 09-26-2024 Platelets (Bld) [#/Vol]Platelets [#/volume] in Blood by Automated lbipk515-423 [facility] CenterRBC Auto (Bld) [#/Vol]on 58-81-5575BTH (Bld) [#/Vol]Erythrocytes [#/volume] in Blood by Automated countLow4.20-5.40Kn[facility] Community Hospitalerum or plasma anion gap determinationon 20-29-5155Ujxog gap [Moles/Vol]Serum or plasma anion gap determinationUniversity Hospitals Elyria Medical CenterUrine Cultureon 05-95-5899Ihumygbw identified Cx Nom (U)NormalThe [facility] Hospital Physician GroupComment on above:Performed By: #### CUU ####[facility] [address] [place] [address] USAAppearance of Urine Ordered By: Leroy Ashby on 65-17-8563Ygzhfossjt (U)Urine appearanceAbnormalClear [facility] CenterBacteria [Presence] in Urine by Automated Ordered By: Leroy Ashby on 12-35-3325Wrdmxdrz Auto Ql (U)Bacteria [Presence] in Urine by AutomatedHighNone SeenFirelands Regional Medical CenterBilirubin Test strip Ql (U)Ordered By: Leroy Ashby on 17-10-6151Arzlcakqj Ql (U)Bilirubin.total [Presence] in Urine by Test stripNegativeUniversity Hospitals Elyria Medical CenterColor Auto (U)Ordered By: Leroy Ashby on 63-01-2790Hdhfu (U)Color of Urine by Auto YellowUniversity Hospitals Elyria Medical CenterCreatinine [Mass/volume] in UrineOrdered By: Leroy Ashby on 92-08-3065Wrrbizlauf (U) [Mass/Vol]Creatinine [Mass/volume] in UrineUniversity Hospitals Elyria Medical CenterComment on above:No reference range establishedDipstick and Microscopicon 05-10-6865Ndldhmcnhk (U)CloudyCritically abnormalCleNorth Okaloosa Medical Center Physician GroupComment on above:Order Comment: Name Collection Type:: VoidedPerformed By: #### ADDONUAPLUS, CUU ####[address], [id number] USABacteria,Urine2+High None SeenHca Florida Sarasota Doctors Hospital Physician GroupComment on above:Order Comment: Name Collection Type:: VoidedPerformed By: #### ADDONUAPLUS, CUU ####[address], [id number] USABilirubin,Urine NegativeNormalNegativeHca Florida [facility] Physician GroupComment on above:Order Comment: Name Collection Type:: VoidedPerformed By: #### ADDONUAPLUS, CUU ####[address], [id number] USAColor (U)ColorlessNormalYellowHca Florida Sarasota Doctors Hospital Physician GroupComment on above:Order Comment: Name Collection Type:: VoidedPerformed By: #### ADDONUAPLUS, CUU ####[address], [id number] USAGlucose Ql (U)NormalNormalNormalThBenewah Community Hospital Physician GroupComment on above:Order Comment: Name Collection Type:: VoidedPerformed By: #### ADDONUAPLUS, CUU ####[address], [place] USAHyaline Casts,Urine0 [LPF]Normal0-8The [facility] Physician GroupComment on above:Order Comment: Name Collection Type:: VoidedPerformed By: #### ADDONUAPLUS, CUU ####[place] [address] [place], [place] USAKetones Ql (U)NegativeNormalNegativeThe [facility] Physician GroupComment on above:Order Comment: Name Collection Type:: VoidedPerformed By: #### ADDONUAPLUS, CUU ####[address] [place] Leukocyte esterase Test strip Ql (U)4+HighNegativeThe [facility] Physician Group Comment on above:Order Comment: Name Collection Type:: VoidedPerformed By: #### ADDONUAPLUS, CUU ####[address] [address] USAMucus,UrineRareNormalThe [facility] Physician GroupComment on above: Order Comment: Name Collection Type:: VoidedResult Comment: PERFORMED BY:[address] [place], [place] [phone] MEDICAL DIRECTORRADHA DURAN M.D.Performed By: #### CARLITOS, CUU ####[address] [address] USANitrite,UrineNegativeNormalNegativeThe [facility] Physician GroupComment on above:Order Comment: Name Collection Type:: VoidedPerformed By: #### ADDONUAPLUS, CUU ####[address] [address] USAOccult Blood,Urine1+HighNegativeThe [facility] Physician GroupComment on above:Order Comment: Name Collection Type:: VoidedPerformed By: #### ADDONUAPLUS, CUU ####[address] [address] USApH (U)6.5 [pH]Normal5.0-9.0[facility] Physician GroupComment on above:Order Comment: Name Collection Type:: VoidedPerformed By: #### ADDONUAPLUS, CUU ####[place] [address] [place] [address] USAProtein (U) [Mass/Vol]50 mg/dLHighNegativeHca Florida [facility] Physician Group Comment on above:Order Comment: Name Collection Type:: VoidedPerformed By: #### ADDONALFIEPLUS, CUU ####[place] [address] [place] [address] USARBC,Urine5 [HPF]High0-4The [facility] Physician GroupComment on above: Order Comment: Name Collection Type:: VoidedPerformed By: #### ADDONUAPLUS, CUU ####[place] [address] [place], [place] [place] Specificy Neptune,Urine1.766Qkzjbe3.001-1.030[facility] Comment on above:Order Comment: Name Collection Type:: VoidedPerformed By: #### ADDONALFIEPLUS, CUU ####[place] [address] [place] [address] USASquamous Epithelial Cell,Urine3 [HPF]High0-2The [facility] Physician GroupComment on above:Order Comment: Name Collection Type:: VoidedPerformed By: #### ADDONUAPLUS, CUU ####[place] [address], [id number] USAUrobilinogen,UrineNormalNormalNormalThe [facility] Physician GroupComment on above:Order Comment: Name Collection Type:: Voided Performed By: #### ADDONUAPLUS, CUU ####[place] [address], [id number] USAWBC CLUMP, UrineManyHighNone SeenHca [facility] Physician GroupComment on above:Order Comment: Name Collection Type:: Voided Performed By: #### ADDONUAPLUS, CUU ####[address] [place], [id number] USAWBC,UrineInnumerableHigh0-4The [facility] Physician GroupComment on above:Order Comment: Name Collection Type:: VoidedPerformed By: #### ADDONUAPLUS, CUU ####[facility] [address] [place], [place] USAEpithelial cells.squamous [#/area] in Urine sediment by Automated countOrdered By: Leroy Ashby on 67-17-4137Ntywknqijx cells.squamous Auto (Urine sed) [#/Area]Epithelial cells.squamous [#/area] in Urine sediment by Automated countHigh02FMemorial Health SystemErythrocytes [#/area] in Urine sediment by Automated countOrdered By: Leroy Ashby on 75-34-4354PJP Auto (Urine sed) [#/Area]Erythrocytes [#/area] in Urine sediment by Automated countHigh04FMemorial Health SystemGlucose [Mass/volume] in Urine by Test stripOrdered By: Leroy Ashby on 79-99-9080Gzdzxur Test strip (U) [Mass/Vol] Glucose [Mass/volume] in Urine by Test stripNoMarymount HospitalHemoglobin Test strip Ql (U)Ordered By: Leroy Ashby on 07-15-2024 Hemoglobin Ql (U)Hemoglobin [Presence] in Urine by Test stripHighNegative [facility]lyria Medical CenterHyaline casts [#/area] in Urine sediment by Automated countOrdered By: Leroy Ashby on 23-99-6039Ohqlvby casts Auto (Urine sed) [#/Area]Hyaline casts [#/area] in Urine sediment by Automated count0-8 [facility] Medical CenterKetones Test strip Ql (U)Ordered By: Leroy Ashby on 14-99-6202Crcyxov Ql (U)Ketones [Presence] in Urine by Test strip [facility] HospitalLeukocyte clumps [Presence] in Urine by AutomatedOrdered By: Leroy Ashby on 80-10-7589Mlaujzpor clumps Auto Ql (U) Leukocyte clumps [Presence] in Urine by AutomatedHighNone Mansfield HospitalLeukocyte esterase [Presence] in Urine by Test stripOrdered By: Leroy Ashby on 61-54-6978Yhthatllk esterase Test strip Ql (U)Leukocyte esterase [Presence] in Urine by Test stripHighNegativeFirelands Regional Medical Center Leukocytes [#/area] in Urine sediment by Automated countOrdered By: Leroy Ashby on 47-73-2369SPL Auto (Urine sed) [#/Area]Leukocytes [#/area] in Urine sediment by Automated countHigh0-4FMemorial Health SystemMucus [Presence] in Urine by AutomatedOrdered By: Leroy Ashby on 72-54-6176Vtnnn Auto Ql (U)Mucus [Presence] in Urine by AutomatedUniversity Hospitals Elyria Medical CenterNitrite Test strip Ql (U)Ordered By: Leroy Ashby on 23-41-1694Mgyifzg Ql (U)Nitrite [Presence] in Urine by Test stripNegGreene Memorial Hospital Protein Creat Ratio Ur Randomon 62-67-1372Uchjggohsq, Urine (Random)25.00 mg/dL NormalThe [facility] Hospital Physician GroupComment on above:Result Comment: No reference range establishedPerformed By: #### PROCRERAT ####[address] [address] USAProtein (U) [Mass/Vol]66 mg/dLHigh0-9 [facility] Physician GroupComment on above:Performed By: #### PROCRERAT ####[address] [address] USAUrine Protein/Creatinine Xwtrf4787 mg/g{Cre}High0-200[facility] Comment on above:Result Comment: PERFORMED BY:[address] [place], [place] [phone] MEDICAL DIRECTORRADHA DURAN M.D.Performed By: #### PROCRERAT ####[address] [address] USAProtein Test strip (U) [Mass/Vol]Ordered By: Leroy Ashyb on 18-96-6269Gxgxbbp (U) [Mass/Vol]Protein [Mass/volume] in Urine by Test stripRegency Hospital Cleveland WestProtein [Mass/volume] in UrineOrdered By: Leroy Ashby on 29-35-4854Wspfkfv (U) [Mass/Vol]Protein [Mass/volume] in UrineHigh0-9Kn[facility] Community Hospitalpecific gravity Test strip (U) [Rel density]Ordered By: Leroy Ashby on 95-31-6230Qiotgadh gravity (U) [Rel density]Specific gravity of Urine by Test strip1.001-1.030[facility]lyria Medical CenterUrine Cultureon 07-15-2024 Bacteria identified Cx Nom (U)NormalThe [facility] Physician GroupComment on above:Performed By: #### KRISTA URBINA ####[facility] [place], [place] USAUrine cultureOrdered By: Leroy Ashby on 36-83-7945Blmxxugf identified Cx Nom (U)Urine cultureUniversity Hospitals Elyria Medical CenterBacteria identified Cx Nom (U)Urine cultureUniversity Hospitals Elyria Medical CenterUrine protein/creatinine ratioOrdered By: Leroy Ashby on 07-15-2024 Protein/Creatinine (U) [Ratio]Urine protein/creatinine ratioHigh0-200[facility] Medical CenterUrobilinogen Test strip (U) [Mass/Vol]Ordered By: Leroy Ashby on 72-40-3488Cbmdsvgploxh (U) [Mass/Vol]Urobilinogen [Mass/volume] in Urine by Test stripNoalUniversity Hospitals Elyria Medical CenterpH Test strip (U) Ordered By: Leroy Ashby on 09-77-4880kQ (U)pH of Urine by Test strip5.0-9.0 [facility] Medical CenterA1C with Estimated Average Gluon 06-28-2024 Glucose [Mass/Vol]189 mg/dLNormalThBenewah Community Hospital Physician GroupComment on above: Result Comment: PERFORMED BY:[facility] [place], [place] [phone] MEDICAL DIRECTORRADHA CHILDS M.D.Performed By: #### A1C WT eA ####[facility] [address]ínlamar regional hospitalzulemaCHERR[place], [place] [address]AABXrX4p (Bld) [Mass fraction]8.2 %High 4.3-5.6The [facility] Physician GroupComment on above:Result Comment: Increased risk for diabetes: 5.7 - 6.4 diabetes: >6.4 glycemic control for adults with diabetes: <7.0Performed By: #### A1C [facility] ####[facility] [place], [place] [address]YAKKizusrd [Mass/volume] in Serum or Plasma by Bromocresol green (BCG) dye binding methoOrdered By: Leroy Ashby on 04-79-3726Mdhnzgr BCG dye [Mass/Vol]Albumin [Mass/volume] in Serum or Plasma by Bromocresol green (BCG) dye binding metho3.5-5.7FMemorial Health SystemBlood estimated average glucose determination by estimation from glycated hemoglobinOrdered By: Da Lozano on 19-89-8245Nejwboc glucose Estimated from glycated hemoglobin (Bld) [Mass/Vol]Glucose mean value [Mass/volume] in Blood Estimated from glycated hemoglobinUniversity Hospitals Elyria Medical CenterCalcium [Mass/volume] in Serum or PlasmaOrdered By: Leroy Isma on 77-91-1405Iqfqkcy [Mass/Vol]Calcium [Mass/volume] in Serum or Plasma8.6-10.3FMemorial Health SystemCarbon dioxide, total [Moles/volume] in Serum or PlasmaOrdered By: Leroy Isma on 37-37-4281RI9 [Moles/Vol]Carbon dioxide, total [Moles/volume] in Serum or Aeojae27.0-31.0[facility] Medical CenterChloride [Moles/volume] in Serum or PlasmaOrdered By: Leroy Isma on 87-93-1477Liescowc [Moles/Vol]Chloride [Moles/volume] in Serum or Pvrrhj50-007BegkhphssUniversity Hospitals Elyria Medical CenterCreatinine [Mass/volume] in Serum or PlasmaOrdered By: Leroy Isma on 24-03-5006Njcyvelkfj [Mass/Vol]Creatinine [Mass/volume] in Serum or Plasma High0.60-1.20[facility] Medical CenterErythrocyte distribution width Auto (RBC) [Ratio]Ordered By: Leroy Ashby on 14-21-1703Qohayjichbd distribution width (RBC) [Ratio]Erythrocyte distribution width [Ratio] by Automated countHigh 11.9-15.3FMemorial Health SystemFerritinon 61-53-2802Zuzrysry [Mass/Vol]96.0 ng/dMFljcps46.0-306.8The [facility] Physician GroupComment on above:Performed By: #### GENET SERUM, SPE W INTERPRET, KAPPA ####[facility] ,#### [id number], [id number], FE and TIBC, RENAL, PTH, MG, URIC, ELIAS, CBCNO ####[facility] [address] [place] [address] [facility] Ferritin [Mass/volume] in Serum or PlasmaOrdered By: Leroy Ashby on 06-28-2024 Ferritin [Mass/Vol]Ferritin [Mass/volume] in Serum or Maoyix14.0-306.8[facility] Medical CenterFolate [Mass/volume] in Serum or PlasmaOrdered By: Leroy Ashby on 88-54-7836Kklrou [Mass/Vol]Folate [Mass/volume] in Serum or Plasma>5.9 [facility] Medical CenterComment on above:Folate reference range: >5.9 ng/mlThe WHO technical consultation on folate and vitamin z73yvhhkqxwfrda has determined that folate concentrations lessthan 4 ng/ml are considered deficient. Free K+L LT Chains, Qn, Son 55-49-8616Rrcs Earl Light Chains, S113.1 mg/LHigh 3.3-19.4The [facility] Physician GroupComment on above:Performed By: #### GENET SERUM, SPE W INTERPRET, KAPPA ####[facility] ,#### [id number], VITD2 5OH, FE and TIBC, RENAL, PTH, MG, URIC, ELIAS, CBCNO ####[facility] [address] [place] [address] USAFree Lambda Light Chains, S 52.4 mg/LHigh5.7-26.3The [facility] Physician GroupComment on above:Performed By: #### GENET SERUM, SPE W INTERPRET, KAPPA ####[facility] ,#### [id number], [id number], FE and TIBC, RENAL, PTH, MG, URIC, ELIAS, CBCNO ####[facility] [address] [place] [address] USAKappa/Lambda Ratio, S2.03Ryaz4.26-1.65The [facility] Physician GroupComment on above:Result Comment: Performed at: - [facility] [address] [id number] Health Safety Manager: Mohan Talbert PhD, Phone: [phone] BY:[address]PaulFAUNSDALE, [place] [phone] MEDICAL DIRECTORMOJERICA DURAN M.D.Performed By: #### GENET SERUM, SPE W INTERPRET, KAPPA ####[facility] ,#### [id number], [id number], FE and TIBC, RENAL, PTH, MG, URIC, ELIAS, CBCNO ####[place] [place] [address] USAGlucose [Mass/volume] in Serum or Plasma Ordered By: Leroy Ashby on 48-82-3117Bsybicn [Mass/Vol]Glucose [Mass/volume] in Serum or OgzmpeHliu90-631CiswkxmzxUniversity Hospitals Elyria Medical CenterComment on above:ADA recommended reference rangeRandom Glucose Reference Range is dependent on time and content of last meal. Glucose of more than 200 mg/dL in a nonstressed, ambulatory subject supports the diagnosisof Diabetes Mellitus.Hematocrit Auto (Bld) [Volume fraction]Ordered By: Leroy Ashby on 44-08-4501Adcnemodcj (Bld) [Volume fraction]Hematocrit [Volume Fraction] of Blood by Automated count 34.0-46.4FMemorial Health SystemHemoglobin A1c/Hemoglobin.total in BloodOrdered By: Da Lozano on 61-87-1648JsJ5v (Bld) [Mass fraction] Hemoglobin A1c percentageHigh4.3-5.6FMemorial Health SystemComment on above:Increased risk for diabetes: 5.7 - 6.4diabetes: >6.4glycemic control for adults with diabetes: <7.0Hemoglobin [Mass/volume] in BloodOrdered By: Leroy Asbhy on 55-93-2047Gnrryonjal (Bld) [Mass/Vol]Hemoglobin [Mass/volume] in Blood 11.8-15.4FMemorial Health SystemHemogram CBC Without Diffon 06-28-2024 Erythrocyte distribution width (RBC) [Ratio]15.9 %High11.9-15.3The [facility] Physician GroupComment on above:Performed By: #### GENET SERUM, SPE W INTERPRET, KAPPA ####[facility] ,#### [id number], [id number], FE and TIBC, RENAL, PTH, MG, URIC, ELIAS, CBCNO ####[address] [address] [place] [address] USAHematocrit (Bld) [Volume fraction]37.6 %Bsifis40.0-46.4 The [facility] Physician GroupComment on above:Performed By: #### GENET SERUM, SPE W INTERPRET, KAPPA ####[facility] ,#### [id number], [id number], FE and TIBC, RENAL, PTH, MG, URIC, ELIAS, CBCNO ####[place] [address] [place] [address] USAHemoglobin (Bld) [Mass/Vol]12.2 g/dLNormal 11.8-15.4The [facility] Physician GroupComment on above:Performed By: #### GENET SERUM, SPE W INTERPRET, KAPPA ####[facility] ,#### [id number], VITD2 5OH, FE and TIBC, RENAL, PTH, MG, URIC, ELIAS, CBCNO ####[place] [address] [place] [address] [facility]ENTERMCH (RBC) [Entitic mass]31.7 stCwckjo72.7-34.3The [facility] Physician GroupComment on above:Performed By: #### GENET SERUM, SPE W INTERPRET, KAPPA ####[facility] ,#### [id number], [id number], FE and TIBC, RENAL, PTH, MG, URIC, ELIAS, CBCNO ####[place] [address] [place] [address] USAMCV (RBC) [Entitic vol]98.3 fL Nlakfx36-733Okp [facility] Physician GroupComment on above:Performed By: #### GENET SERUM, SPE W INTERPRET, KAPPA ####[facility] ,#### [id number], VITD2 5OH, FE and TIBC, RENAL, PTH, MG, URIC, ELIAS, CBCNO ####[address] [address] USAMean Corpuscular HGB Conc32.3 g/zZOchhey59.0-35.0The [facility] Physician GroupComment on above:Performed By: #### GENET SERUM, SPE W INTERPRET, KAPPA ####[facility] ,#### [id number], [id number], FE and TIBC, RENAL, PTH, MG, URIC, ELIAS, CBCNO ####[address] [address] USAPlatelet mean volume (Bld) [Entitic vol]9.1 fLNormal6.3-10.7The [facility] Physician GroupComment on above: Result Comment: PERFORMED BY:[place] [address] [place], [place] [phone] MEDICAL DIRECTORRADHA CHILDS M.D.Performed By: #### GENET SERUM, SPE W INTERPRET, KAPPA ####[facility] ,#### [id number], [id number], FE and TIBC, RENAL, PTH, MG, URIC, ELIAS, CBCNO ####[address] [address] [place] Platelets (Bld) [#/Vol]229 10*3/iKBzsajk330-340Gvd [facility] Comment on above:Performed By: #### GENET SERUM, SPE W INTERPRET, KAPPA ####[facility] ,#### [id number], [id number], FE and TIBC, RENAL, PTH, MG, URIC, ELIAS, CBCNO ####[facility] [place] [address] USARBC (Bld) [#/Vol]3.83 10*6/uLNormal3.60-5.00The [facility] Physician GroupComment on above:Performed By: #### GENET SERUM, SPE W INTERPRET, KAPPA ####[facility] ,#### [id number], [id number], FE and TIBC, RENAL, PTH, MG, URIC, ELIAS, CBCNO ####[facility] [place] [address] USAWBC (Bld) [#/Vol]9.2 10*3/uLNormal3.8-11.6The [facility] Physician GroupComment on above:Performed By: #### GENET SERUM, SPE W INTERPRET, KAPPA ####[facility] ,#### [id number], [id number], FE and TIBC, RENAL, PTH, MG, URIC, ELIAS, CBCNO ####[place] [address] [place] [address] USAImmunofixation,Serumon 13-76-1156Gsmqisannpcevs, SerumComment:Normal .The [facility] Physician GroupComment on above:Result Comment: Presence of monoclonal protein is unclear at this time. Suggest repeat in 3 to 6 months if clinically indicated.Performed By: #### GENET SERUM, SPE W INTERPRET, KAPPA ####[facility] ,#### [id number], [id number], FE and TIBC, RENAL, PTH, MG, URIC, ELIAS, CBCNO ####[place] [place] [address] USAImmunoglobulin A, Xorrv413 mg/zSCltgal93-717Rtx [facility] Physician GroupComment on above:Performed By: #### GENET SERUM, SPE W INTERPRET, KAPPA ####[facility] ,#### [id number], [id number], FE and TIBC, RENAL, PTH, MG, URIC, ELIAS, CBCNO ####[address] [place] [address] USAImmunoglobulin G1087 mg/nDMgrzxr236-7624Ccs [facility] Physician GroupComment on above:Performed By: #### GENET SERUM, SPE W INTERPRET, KAPPA ####[facility] ,#### [id number], [id number], FE and TIBC, RENAL, PTH, MG, URIC, ELIAS, CBCNO ####[address] [place] [address] USAImmunoglobulin M, Serum86 mg/iJIrmysi19-142Wyk [facility] Physician GroupComment on above:Result Comment: Performed at: [facility] [address] [id number] Health Safety Manager: Mohan Talbert PhD, Phone: [phone] By: #### GENET SERUM, SPE W INTERPRET, KAPPA ####[facility] ,#### [id number], [id number], FE and TIBC, RENAL, PTH, MG, URIC, ELIAS, CBCNO ####[address] [address] [place] Iron [Mass/volume] in Serum or PlasmaOrdered By: Leroy Ashby on 01-89-3152Hout [Mass/Vol]Iron [Mass/volume] in Serum or Bnhhxr89-386CvbnmzlbgUniversity Hospitals Elyria Medical CenterIron and TIBC Profileon 06-28-2024% Iron Kcrmjriexb77.4 %Muuonz85-26Jua [facility] Physician GroupComment on above:Performed By: #### GENET SERUM, SPE W INTERPRET, KAPPA ####[facility] ,#### [id number], [id number], FE and TIBC, RENAL, PTH, MG, URIC, ELIAS, CBCNO ####[place] [place] [address] USAIron [Mass/Vol]66 ug/wMCeumhw66-492Juo [facility] Physician GroupComment on above:Performed By: #### GENET SERUM, SPE W INTERPRET, KAPPA ####[facility] ,#### [id number], [id number], FE and TIBC, RENAL, PTH, MG, URIC, ELIAS, CBCNO ####[facility] [place] [address] USATotal Iron Binding Kzhvpqaf142 ug/dLNormal 255-450The [facility] Physician GroupComment on above:Performed By: #### GENET SERUM, SPE W INTERPRET, KAPPA ####[facility] ,#### [id number], VITD2 5OH, FE and TIBC, RENAL, PTH, MG, URIC, ELIAS, CBCNO ####[facility] [address] [place] [address] USATransferrin [Mass/Vol]193 mg/vNQom610-502Qpy [facility] Physician GroupComment on above:Performed By: #### GENET SERUM, SPE W INTERPRET, KAPPA ####[facility] ,#### [id number], [id number], FE and TIBC, RENAL, PTH, MG, URIC, ELIAS, CBCNO ####[facility] [address] [place] [address] USALeukocytes [#/volume] corrected for nucleated erythrocytes in Blood by Automated counOrdered By: Leroy Ashby on 84-60-3088PGZ corrected for nucl RBC Auto (Bld) [#/Vol]Leukocytes [#/volume] corrected for nucleated erythrocytes in Blood by Automated coun 3.8-11.6FWadsworth[facility]Ritt[facility] Auto (RBC) [Entitic mass]Ordered By: Leroy Michelledir on 55-25-1927[place]C (RBC) [Entitic mass]MCH [Entitic mass] by Automated count24.7-34.3FOhioHealth Marion General HospitalHC Auto (RBC) [Mass/Vol]Ordered By: Leroy Michelledir on 45-54-0443WQPZ (RBC) [Mass/Vol]MCHC [Mass/volume] by Automated count32.0-35.0[facility] Auto (RBC) [Entitic vol]Ordered By: Leroy Ashby on 98-71-0179NOA (RBC) [Entitic vol]MCV [Entitic volume] by Automated -054McfwuviynUniversity Hospitals Elyria Medical CenterMagnesiumon 26-10-4374Zulnsrhlg [Mass/Vol]1.9 mg/dLNormal1.9-2.7The [facility] Physician GroupComment on above:Performed By: #### GENET SERUM, SPE W INTERPRET, KAPPA ####[facility] ,#### [id number], [id number], FE and TIBC, RENAL, PTH, MG, URIC, ELIAS, CBCNO ####[facility] [address] [place] [address] USAMagnesium [Mass/volume] in Serum or Plasma Ordered By: Leroy Ashby on 34-02-3992Fmmgqlpgc [Mass/Vol]Magnesium [Mass/volume] in Serum or Plasma1.9-2.7FMemorial Health SystemNo Panel Information Ordered By: Leroy Ashby on 10-35-5564Cravjkptq GFR (CKD-EPI)36.998 mL/Min [facility] Medical CenterPharmacy Creatinine Clearance (ChemN/AFMemorial Health SystemProtein Electrophoresis InterpretComment.[facility]ria Medical CenterComment on above:The SPE pattern demonstrates elevation of regionscontaining acute phase proteins suggesting anacute/subacute inflammatory response. Some conditions inwhich this pattern has been observed include: bacterial,viral or parasitic infection; mechanical, physical orchemical trauma; and cardiac failure. The gamma globulinregion is unremarkable and evidence of monoclonal proteinis not apparent.Performed at: - Lab[address] [id number] Director: Mohan Talbert PhD, Phone: [phone] Electrophoresis M-SpikeNot observed g/dLNot Observed [facility] Medical CenterProtein Electrophoresis NoteComment.[facility]ria Medical CenterComment on above:Protein electrophoresis scan will follow via computer,mail, or road grader operator delivery.Parathyrin.intact [Mass/volume] in Serum or PlasmaOrdered By: Leroy Ashby on 05-24-3007Yzmglclhgo.intact [Mass/Vol] Parathyrin.intact [Mass/volume] in Serum or Zmctap11-15IdyrehjyaUniversity Hospitals Elyria Medical CenterParathyroid Hormone Intacton 27-53-8950Apsfzxhqkda Hormone Intact 69.9 pg/eTFhpzoh72-87Jen [facility] Physician GroupComment on above:Result Comment: PERFORMED BY:[facility] [place]RET[place]aul[place], [place] [phone] MEDICAL DIRECTORRADHA DURAN M.D. Performed By: #### GENET SERUM, SPE W INTERPRET, KAPPA ####[facility] ,#### [id number], [id number], FE and TIBC, RENAL, PTH, MG, URIC, ELIAS, CBCNO ####[address] [place] [address] [facility] Phosphate [Mass/volume] in Serum or PlasmaOrdered By: Leroy Ashby on 06-28-2024 Phosphate [Mass/Vol]Phosphate [Mass/volume] in Serum or Plasma2.5-4.5FMemorial Health SystemPlatelet mean volume Auto (Bld) [Entitic vol]Ordered By: Leroy Ashby on 92-24-5702Oqfbbtma mean volume (Bld) [Entitic vol]Platelet mean volume [Entitic volume] in Blood by Automated count6.3-10.7FMemorial Health SystemPlatelets Auto (Bld) [#/Vol]Ordered By: Leroy Akinsr on 06-28-2024 Platelets (Bld) [#/Vol]Platelets [#/volume] in Blood by Automated jtpoj811-831 [facility] Medical CenterPotassium [Moles/volume] in Serum or Plasma Ordered By: Leroy Isma on 51-87-6701Drontguuj [Moles/Vol]Potassium [Moles/volume] in Serum or Plasma3.5-5.1FMemorial Health SystemProt Electrophoresis w/Interpon 00-22-4460Zdwnsuq [Mass/Vol]3.1 g/dLNormal2.9-4.4The [facility] Physician GroupComment on above:Performed By: #### GENET SERUM, SPE W INTERPRET, KAPPA ####[facility] ,#### [id number], [id number], FE and TIBC, RENAL, PTH, MG, URIC, ELIAS, CBCNO ####[address] [address] USAAlbumin/Globulin [Mass ratio]0.8 {ratio}Normal 0.7-1.7The [facility] Physician GroupComment on above:Performed By: #### GENET SERUM, SPE W INTERPRET, KAPPA ####[facility] ,#### [id number], VITD2 5OH, FE and TIBC, RENAL, PTH, MG, URIC, ELIAS, CBCNO ####[address] [address] XPONremp-5-Hhcwexre9.3 g/dLNormal 0.0-0.4The [facility] Physician GroupComment on above:Performed By: #### GENET SERUM, SPE W INTERPRET, KAPPA ####[facility] ,#### [id number], VITD2 5OH, FE and TIBC, RENAL, PTH, MG, URIC, ELIAS, CBCNO ####[address] [address] RDXLkoyq-8-Zjfzeypb7.3 g/dLHigh 0.4-1.0The [facility] Physician GroupComment on above:Performed By: #### GENET SERUM, SPE W INTERPRET, KAPPA ####[facility] ,#### [id number], VITD2 5OH, FE and TIBC, RENAL, PTH, MG, URIC, ELIAS, CBCNO ####[address] [address] USABeta Globulin1.1 g/dLNormal 0.7-1.3The [facility] Physician GroupComment on above:Performed By: #### GENET SERUM, SPE W INTERPRET, KAPPA ####[facility] ,#### [id number], VITD2 5OH, FE and TIBC, RENAL, PTH, MG, URIC, ELIAS, CBCNO ####[address] [address] USAGamma Globulin1.1 g/dLNormal 0.4-1.8The [facility] Physician GroupComment on above:Performed By: #### GENET SERUM, SPE W INTERPRET, KAPPA ####[facility] ,#### [id number], VITD2 5OH, FE and TIBC, RENAL, PTH, MG, URIC, ELIAS, CBCNO ####[place] [address] USAGlobulin (S) [Mass/Vol]3.7 g/dLNormal2.2-3.9The [facility] Physician GroupComment on above:Performed By: #### GENET SERUM, SPE W INTERPRET, KAPPA ####[facility] ,#### [id number], [id number], FE and TIBC, RENAL, PTH, MG, URIC, ELIAS, CBCNO ####[place] [id number] USAM-SpikeNot ObservedNormalNot ObservedThe [facility] Physician GroupComment on above:Performed By: #### GENET SERUM, SPE W INTERPRET, KAPPA ####[facility] ,#### [id number], VITD2 5OH, FE and TIBC, RENAL, PTH, MG, URIC, ELIAS, CBCNO ####[address] [address] USAProtein [Mass/Vol]6.8 g/dL Normal6.0-8.5The [facility] Physician GroupComment on above:Performed By: #### GENET SERUM, SPE W INTERPRET, KAPPA ####[facility] ,#### [id number], [id number], FE and TIBC, RENAL, PTH, MG, URIC, ELIAS, CBCNO ####[place] [id number] USASPE-InterpretationComment Normal.The [facility] Physician GroupComment on above:Result Comment: The SPE pattern demonstrates elevation of regions containing acute phase proteins reardon ggesting an acute/subacute inflammatory response. Some conditions in which this pattern has been observed include: bacterial, viral or parasitic infection; mechanical, physical or chemical trauma; and cardiac failure. The gamma globulin region is unremarkable and evidence of monoclonal protein is not apparent. Performed at: [facility] [id number] Health Safety Manager: Mohan Talbert PhD, Phone: [phone] By: #### GENET SERUM, SPE W INTERPRET, KAPPA ####[facility] ,#### [id number], [id number], FE and TIBC, RENAL, PTH, MG, URIC, ELIAS, CBCNO ####[facility] [place] [address] USASPE-NoteCommentNormal.The [facility] Physician GroupComment on above:Result Comment: Protein electrophoresis scan will follow via computer, mail, or road grader operator delivery.Performed By: #### GENET SERUM, SPE W INTERPRET, KAPPA ####[facility] ,#### [id number], VITD2 5OH, FE and TIBC, RENAL, PTH, MG, URIC, ELIAS, CBCNO ####[place] [address] [place] [id number] USARBC Auto (Bld) [#/Vol]Ordered By: Leroy Ashby on 26-82-8766MRC (Bld) [#/Vol]Erythrocytes [#/volume] in Blood by Automated count3.60-5.00[facility] Medical CenterRenal Function Panel on 54-83-3323Wemldjk [Mass/Vol]3.6 g/dLNormal3.5-5.7The [facility] Physician GroupComment on above:Performed By: #### GENET SERUM, SPE W INTERPRET, KAPPA ####[facility] ,#### [id number], [id number], FE and TIBC, RENAL, PTH, MG, URIC, EILAS, CBCNO ####[facility] [place] [address] USAAnion gap [Moles/Vol]12.9 mmol/LNormal6.0-15.0The [facility] Physician GroupComment on above:Performed By: #### GENET SERUM, SPE W INTERPRET, KAPPA ####[facility] ,#### [id number], [id number], FE and TIBC, RENAL, PTH, MG, URIC, ELIAS, CBCNO ####[place] [address] [place] [address] USACalcium [Mass/Vol]9.3 mg/dLNormal8.6-10.3The [facility] Physician GroupComment on above:Performed By: #### GENET SERUM, SPE W INTERPRET, KAPPA ####[facility] ,#### [id number], [id number], FE and TIBC, RENAL, PTH, MG, URIC, ELIAS, CBCNO ####[place] [address] [place] [address] USAChloride [Moles/Vol]101 mmol/YTxrhzd84-527Qhr [facility] Physician GroupComment on above:Performed By: #### GENET SERUM, SPE W INTERPRET, KAPPA ####[facility] ,#### [id number], [id number], FE and TIBC, RENAL, PTH, MG, URIC, ELIAS, CBCNO ####[place] [address] [place] [address] USACO2 [Moles/Vol]29.5 mmol/ZKblolj62.0-31.0The [facility] Physician GroupComment on above:Performed By: #### GENET SERUM, SPE W INTERPRET, KAPPA ####[facility] ,#### [id number], [id number], FE and TIBC, RENAL, PTH, MG, URIC, ELIAS, CBCNO ####[address] [place] [address] USACreatinine [Mass/Vol]1.44 mg/dLHigh0.60-1.20The [facility] Physician GroupComment on above:Performed By: #### GENET SERUM, SPE W INTERPRET, KAPPA ####[facility] ,#### [id number], [id number], FE and TIBC, RENAL, PTH, MG, URIC, ELIAS, CBCNO ####[facility] [place] [address] USAEstimated GFR36.998 mL/MinNormalThe [facility] Physician GroupComment on above:Performed By: #### GENET SERUM, SPE W INTERPRET, KAPPA ####[facility] ,#### [id number], [id number], FE and TIBC, RENAL, PTH, MG, URIC, ELIAS, CBCNO ####[place] [address] [place] [address] USAGlucose [Mass/Vol]151 mg/wGUiet38-211Wrc [facility] Physician GroupComment on above:Result Comment: Random Glucose Reference Range is dependent on time and content of last meal. Glucose of more than 200 mg/dL in a nonstressed, ambulatory subject supports the diagnosis of Diabetes Mellitus. ADA recommended reference rangePerformed By: #### GENET SERUM, SPE W INTERPRET, KAPPA ####[facility] ,#### [id number], [id number], FE and TIBC, RENAL, PTH, MG, URIC, ELIAS, CBCNO ####[place] [address] [place] [id number] USAPhosphate [Mass/Vol]3.5 mg/dLNormal2.5-4.5The [facility] Physician GroupComment on above:Performed By: #### GENET SERUM, SPE W INTERPRET, KAPPA ####[facility] ,#### [id number], [id number], FE and TIBC, RENAL, PTH, MG, URIC, ELIAS, CBCNO ####[facility] [place] [address] USAPotassium [Moles/Vol]4.4 mmol/LNormal3.5-5.1The [facility] Physician GroupComment on above:Performed By: #### GENET SERUM, SPE W INTERPRET, KAPPA ####[facility] ,#### [id number], [id number], FE and TIBC, RENAL, PTH, MG, URIC, ELIAS, CBCNO ####[facility] [address] [place] [address] USASodium [Moles/Vol]139 mmol/ZTdoueg615-209Eeq [facility] Physician GroupComment on above:Performed By: #### GENET SERUM, SPE W INTERPRET, KAPPA ####[facility] ,#### [id number], [id number], FE and TIBC, RENAL, PTH, MG, URIC, ELIAS, CBCNO ####[facility] [address] [place] [address] USAUrea nitrogen [Mass/Vol]28 mg/dLHigh7-25The [facility] Physician GroupComment on above:Performed By: #### GENET SERUM, SPE W INTERPRET, KAPPA ####[facility] ,#### [id number], [id number], FE and TIBC, RENAL, PTH, MG, URIC, ELIAS, CBCNO ####[facility] [address] [place] [address] USASerum free kappa light chain measurement Ordered By: Leroy Ashby on 87-93-8396Kxcoqsanchoamc light chains.kappa.free (S) [Mass/Vol]Immunoglobulin light chains.kappa.free [Mass/volume] in SerumHigh 3.3-19.4FC[facility] Clinic [facility]odi Hospitalerum globulin measurement (mass/volume)Ordered By: Leroy Ashby on 22-47-9591Sklotnyf (S) [Mass/Vol]Serum globulin measurement (mass/volume)2.2-3.9[facility] Hospitalerum immunofixation electrophoresisOrdered By: Leroy Ashby on 97-72-0273Gaxry ImmunofixationComment:.[facility] Medical CenterComment on above: Presence of monoclonal protein is unclear at this time. Suggestrepeat in 3 to 6 months if clinically indicated.Serum immunoglobulin free kappa light chains/immunoglobulin free lambda light chainsOrdered By: Leroy Ashby on 29-16-0432Ultymzmiexypnr light chains.kappa.free/Immunoglobulin light chains.lambda.free (S) [Mass ratio]Immunoglobulin light chains.kappa.free/Immunoglobulin light chains.lambda.free [MassHigh0.26-1.65 [facility] Medical CenterComment on above:Performed at: [facility] [id number] Director: Mohan Talbert PhD, Phone: [phone] or plasma IgA measurement (mass/volume)Ordered By: Leroy Isma on 36-63-6719AqD [Mass/Vol]IgA [Mass/volume] in Serum or Xgsjzb89-898 [facility] Hospitalerum or plasma IgG measurement (mass/volume) Ordered By: Leroy Isma on 00-72-9982YlP [Mass/Vol]IgG [Mass/volume] in Serum or Ewcniy292-6045TgbroncuxKnox Community Hospitalerum or plasma IgM measurement (mass/volume)Ordered By: Leroy Isma on 27-42-0441RhF [Mass/Vol]IgM [Mass/volume] in Serum or Zzbjhl18-442IrlletghjUniversity Hospitals Elyria Medical CenterComment on above:Performed at: [facility] [id number] Director: Mohan Talbert PhD, Phone: [phone] or plasma albumin measurement (mass/volume)Ordered By: Leroy Isma on 13-45-3501Uaxudem [Mass/Vol]Albumin [Mass/volume] in Serum or Plasma2.9-4.4FCleveland Clinic [facility] Lodi Hospitalerum or plasma albumin/globulin mass ratioOrdered By: Leroy Isma on 20-90-8118Ktxnmde/Globulin [Mass ratio]Serum or plasma albumin/globulin mass ratio0.7-1.7FCleveland Clinic [facility] Lodi Hospitalerum or plasma alpha 1 globulin measurement by electrophoresis (mass/volume)Ordered By: Leroy Isma on 70-31-7023Rwkvw 1 globulin Elph [Mass/Vol]Serum or plasma alpha 1 globulin measurement by electrophoresis (mass/volume)0.0-0.4FCleveland Clinic [facility] Hospitalerum or plasma alpha 2 globulin measurement by electrophoresis (mass/volume)Ordered By: Leroy Isma on 74-06-6473Tjdkr 2 globulin Elph [Mass/Vol]Serum or plasma alpha 2 globulin measurement by electrophoresis (mass/volume)High0.4-1.0[facility] Hospitalerum or plasma anion gap determinationOrdered By: Leroy Ashby on 24-93-7602Ivkyr gap [Moles/Vol]Serum or plasma anion gap determination6.0-15.0[facility] Hospitalerum or plasma beta globulin measurement by electrophoresis (mass/volume)Ordered By: Leroy Ashby on 52-92-8845Eawh globulin Elph [Mass/Vol]Serum or plasma beta globulin measurement by electrophoresis (mass/volume)0.7-1.3FCleveland Clinic [facility] Hospitalerum or plasma gamma globulin measurement by electrophoresis (mass/volume)Ordered By: Leroy Ashby on 22-91-1722Bwxvn globulin Elph [Mass/Vol] Serum or plasma gamma globulin measurement by electrophoresis (mass/volume) 0.4-1.8[facility] Hospitalerum or plasma immunoglobulin free lambda light chains measurement (mass/volume)Ordered By: Leroy Ashby on 12-30-4092Vmghjrhfrghpzs light chains.lambda.free [Mass/Vol]Immunoglobulin light chains.lambda.free [Mass/volume] in Serum or PlasmaHigh5.7-26.3FC[facility] Hospitalerum or plasma iron binding capacity measurement (mass/volume)Ordered By: Leroy Ashby on 30-46-4259Hifw binding capacity [Mass/Vol]Iron binding capacity [Mass/volume] in Serum or Qevdcv698-553GxperihxvKnox Community Hospitalerum or plasma iron saturation measurement (mass fraction)Ordered By: Leroy Ashby on 97-05-1822Syca saturation [Mass fraction] Iron saturation [Mass Fraction] in Serum or Zuwgkc77-39VfikiitlcKnox Community Hospitalerum total protein measurementOrdered By: Leroy Ashby on 19-23-6591Urqgfda [Mass/Vol]Protein [Mass/volume] in Serum or Plasma6.0-8.5 [facility] Hospitalodium [Moles/volume] in Serum or PlasmaOrdered By: Leroy Ashby on 38-02-9347Zuiugo [Moles/Vol]Sodium [Moles/volume] in Serum or Pdoyhp563-570MpxmseoziUniversity Hospitals Elyria Medical CenterTransferrin [Mass/volume] in Serum or PlasmaOrdered By: Leroy Isma on 34-09-5073Iuqzvcnjnxs [Mass/Vol] Transferrin [Mass/volume] in Serum or KodirvDqv039-688EtrrfetdbUniversity Hospitals Elyria Medical CenterUrate [Mass/volume] in Serum or PlasmaOrdered By: Leroy Isma on 90-85-5830Rnjgo [Mass/Vol]Urate [Mass/volume] in Serum or Plasma2.3-6.6FMemorial Health SystemUrea nitrogen [Mass/volume] in Serum or PlasmaOrdered By: Leroy Isma on 61-05-2261Ingx nitrogen [Mass/Vol]Urea nitrogen [Mass/volume] in Serum or PlasmaHigh7-25[facility] Medical CenterUric Acidon 37-87-9358Ckbkv [Mass/Vol]4.3 mg/dLNormal2.3-6.6The [facility] Comment on above:Performed By: #### GENET SERUM, SPE W INTERPRET, KAPPA ####[facility] ,#### [id number], [id number], FE and TIBC, RENAL, PTH, MG, URIC, ELIAS, CBCNO ####[place] [address] [place] [address] USAVit. B12/Folate Profileon 34-48-4351Uwxfaddey (Vitamin B12) [Mass/Vol]311 pg/iLRxiwww551-662Tts [facility] Physician GroupComment on above: Performed By: #### GENET SERUM, SPE W INTERPRET, KAPPA ####[facility] ,#### [id number], [id number], FE and TIBC, RENAL, PTH, MG, URIC, ELIAS, CBCNO ####[place] [address] [place] [address] [facility] Bsczpa49.4 ng/mLNormal>5.9The [facility] Physician GroupComment on above:Result Comment: Folate reference range: >5.9 ng/ml The WHO technical consultation on folate and vitamin b12 deficiencies has determined that folate concentrations less than 4 ng/ml are considered deficient.Performed By: #### GENET SERUM, SPE W INTERPRET, KAPPA ####[facility] ,#### [id number], [id number], FE and TIBC, RENAL, PTH, MG, URIC, LEIAS, CBCNO ####[facility] [place] [address] [facility] CENTERVitamin B12 ser/plasOrdered By: Leroy Ashby on 04-29-0543Fnkuzgynm (Vitamin B12) [Mass/Vol]Vitamin B12 ser/umwz577-805 [facility] Medical CenterVitamin D 25 Hydroxy Totalon 61-83-0708Ppndpof D 25 Hydroxy Total59.6 ng/cOUlcepr90-899Mhu [facility] Physician GroupComment on above:Result Comment: VITAMIN D STATUS 25(OH)VITAMIN D RANGE (ng/mL) Deficient <20 Insufficient 20 to <30 Sufficient 30 to 100 Reference: Abhijeet Lao, Stacey CHATMAN, et al. Evaluation,treatment, and prevention of vitamin D deficiency; an Endocrine Society clinical practice guideline.JCEM. 2010; 96(7):1911-30.PERFORMED BY:[address] [place], [place] [id number] MEDICAL DIRECTORRADHA CHILDS M.D.Performed By: #### GENET SERUM, SPE W INTERPRET, KAPPA ####[facility] ,#### [id number], [id number], FE and TIBC, RENAL, PTH, MG, URIC, ELIAS, CBCNO ####[facility] [place] [address] [facility] Vitamin D+Metabolites [Mass/volume] in Serum or PlasmaOrdered By: Leroy Ashby on 93-94-3381Kbaistv D+Metabolites [Mass/Vol]Vitamin D+Metabolites [Mass/volume] in Serum or Htpmfa87-439GlgpliuknUniversity Hospitals Elyria Medical CenterComment on above: VITAMIN D STATUS 25(OH)VITAMIN D RANGE (ng/mL) Deficient <20 Insufficient 20 to <06Cmqcxtwsfq87 to 100Reference: Abhijeet Lao, Stacey CHATMAN, et al. Evaluation,treatment, and prevention of vitamin D deficiency; an Endocrine Society clinical practice guideline. JCEM. 2010; 96(7):1911-30.XR hip LT min 2V(w/wo pelvis)*on 46-62-6653DI hip LT min 2V(w/wo pelvis)*NormalThe [facility] Physician GroupAlbumin Levelon 76-81-7817Wnujyyc [Mass/Vol]3.7 g/dLNormal3.5-5.7 The [facility] Physician GroupComment on above:Result Comment: PERFORMED BY:[address] [place], [place] [id number] [id number] MEDICAL DIRECTORRADHA DURAN M.D.Performed By: #### CBC, ALB, BMP ####[address] [address] [facility]#### FRUC ####[facility] ,Albumin [Mass/volume] in Serum or Plasma by Bromocresol green (BCG) dye binding methoOrdered By: Da Lozano on 40-35-1773Ooiogbv BCG dye [Mass/Vol]Albumin [Mass/volume] in Serum or Plasma by Bromocresol green (BCG) dye binding metho3.5-5.7FMemorial Health SystemAppearance of UrineOrdered By: Da Lozano on 97-13-7280Bgjtszeakm (U) Urine appearanceAbnoRegency Hospital CompanyBacteria [Presence] in Urine by AutomatedOrdered By: Da Lozano on 06-24-2024 Bacteria Auto Ql (U)Bacteria [Presence] in Urine by AutomatedHighNone Seen [facility] Medical CenterBasic Metabolic Panelon 56-37-4058Lzepp gap [Moles/Vol]14.2 mmol/LNormal6.0-15.0The [facility] Physician [facility] HospitalComment on above:Performed By: #### CBC, ALB, BMP ####[address]#### FRUC ####[facility] ,Calcium [Mass/Vol]9.6 mg/dLNormal8.6-10.3The [facility] Physician GroupComment on above: Performed By: #### CBC, ALB, BMP ####[place] [address] [place]#### FRUC ####[facility] ,Chloride [Moles/Vol]99 mmol/KEybvdy50-027Pme [facility] Physician GroupComment on above: Performed By: #### CBC, ALB, BMP ####[place] [address] [place]#### FRUC ####[facility] ,CO2 [Moles/Vol] 32.5 mmol/LHigh21.0-31.0The [facility] Physician GroupComment on above:Performed By: #### CBC, ALB, BMP ####[address]#### FRUC ####[facility] ,Creatinine [Mass/Vol]1.62 mg/dLHigh0.60-1.20The [facility] Physician GroupComment on above: Performed By: #### CBC, ALB, BMP ####[address]#### FRUC ####[facility] ,Estimated GFR 32.121 mL/MinNormalThe [facility] Physician GroupComment on above:Performed By: #### CBC, ALB, BMP ####[place] [address] [place]#### FRUC ####[facility] ,Glucose [Mass/Vol]77 mg/dLNormal 70-100The [facility] Physician GroupComment on above:Result Comment: Random Glucose Reference Range is dependent on time and content of last meal. Glucose of more than 200 mg/dL in a nonstressed, ambulatory subject supports the diagnosis of Diabetes Mellitus. ADA recommended reference rangePerformed By: #### CBC, ALB, BMP ####[place] [address] [place]#### FRUC ####[facility] ,Potassium [Moles/Vol]4.7 mmol/L Normal3.5-5.1The [facility] Physician GroupComment on above:Performed By: #### CBC, ALB, BMP ####[facility] [place] [address] [place]#### FRUC ####[facility] ,Sodium [Moles/Vol]141 mmol/LNormal 136-145The [facility] Physician GroupComment on above:Performed By: #### CBC, ALB, BMP ####[facility] [place] [address] [place]#### FRUC ####[facility] ,Urea nitrogen [Mass/Vol]34 mg/dLHigh7-25 The [facility] Physician GroupComment on above:Performed By: #### CBC, ALB, BMP ####[place] [place] [address] [place]#### FRUC ####[facility] ,Basophils Auto (Bld) [#/Vol]Ordered By: Da Lozano on 73-70-7876Ibffbaxnn (Bld) [#/Vol]Automated basophil count0.0-0.2 [facility] Medical CenterBasophils/100 WBC Auto (Bld)Ordered By: Da Lozano on 62-29-2934Fuazvbozk/100 WBC (Bld)Automated basophil %.[facility] Medical CenterBilirubin Test strip Ql (U)Ordered By: Da Lozano on 87-75-0686Mfgtrycau Ql (U)Bilirubin.total [Presence] in Urine by Test strip NegativeUniversity Hospitals Elyria Medical CenterCalcium [Mass/volume] in Serum or PlasmaOrdered By: Da Lozano on 86-42-0525Gwvwsad [Mass/Vol]Calcium [Mass/volume] in Serum or Plasma8.6-10.3FMemorial Health SystemCarbon dioxide, total [Moles/volume] in Serum or PlasmaOrdered By: Da Lozano on 08-17-1445LB5 [Moles/Vol]Carbon dioxide, total [Moles/volume] in Serum or Plasma High21.0-31.0[facility] Medical CenterChloride [Moles/volume] in Serum or PlasmaOrdered By: Da Lozano on 02-51-5528Icnxcggm [Moles/Vol]Chloride [Moles/volume] in Serum or Uipdds55-346QohhpuxqeUniversity Hospitals Elyria Medical CenterColor Auto (U)Ordered By: Da Lozano on 26-24-5601Ewlim (U)Color of Urine by Auto AbnormalYellowUniversity Hospitals Elyria Medical CenterComplete Blood Count Auto Diffon 30-68-9924Crllfjles (Bld) [#/Vol]0.1 10*3/uLNormal0.0-0.2The [facility] Physician GroupComment on above:Result Comment: PERFORMED BY:[address] [place], [place] [phone] MEDICAL DIRECTORRADHA DURAN M.D.Performed By: #### CBC, ALB, BMP ####[address]#### FRUC ####[facility] ,Basophils/100 WBC (Bld)1.2 %Normal.The [facility] Physician GroupComment on above:Performed By: #### CBC, ALB, BMP ####[address]#### FRUC ####[facility] ,Eosinophils (Bld) [#/Vol]0.4 10*3/uLNormal0.0-0.45The [facility] Physician GroupComment on above:Performed By: #### CBC, ALB, BMP ####[address]#### FRUC ####[facility] ,Eosinophils/100 WBC (Bld)3.9 %Normal.The [facility] Physician GroupComment on above:Performed By: #### CBC, ALB, BMP ####[place] [address] [place]#### FRUC ####[facility] ,Erythrocyte distribution width (RBC) [Ratio]15.6 %High11.9-15.3The [facility] Physician GroupComment on above:Performed By: #### CBC, ALB, BMP ####[address]#### FRUC ####[facility] ,Hematocrit (Bld) [Volume fraction]36.3 %Normal 34.0-46.4The [facility] Physician GroupComment on above:Performed By: #### CBC, ALB, BMP ####[address]#### FRUC ####[facility] ,Hemoglobin (Bld) [Mass/Vol]11.9 g/dL Clfixx28.8-15.4The [facility] Physician GroupComment on above:Performed By: #### CBC, ALB, BMP ####[place] [address] [place]#### FRUC ####[facility] ,Lymphocytes (Bld) [#/Vol]2.1 10*3/uLNormal1.00-4.8The [facility] Physician GroupComment on above:Performed By: #### CBC, ALB, BMP ####[address]#### FRUC ####[facility] ,Lymphocytes/100 WBC (Bld)19.4 % Normal.The [facility] Physician GroupComment on above:Performed By: #### CBC, ALB, BMP ####[place] [address] [place]#### FRUC ####[facility] ,MCH (RBC) [Entitic mass]31.9 pgNormal 24.7-34.3The [facility] Physician GroupComment on above:Performed By: #### CBC, ALB, BMP ####[place] [address] [place]#### FRUC ####[facility] ,MCV (RBC) [Entitic vol]97.5 fLNormal 80-100The [facility] Physician GroupComment on above:Performed By: #### CBC, ALB, BMP ####[address]#### FRUC ####[facility] ,Mean Corpuscular HGB Conc32.7 g/dLNormal 32.0-35.0The [facility] Physician GroupComment on above:Performed By: #### CBC, ALB, BMP ####[place] [address] [place]#### FRUC ####[facility] ,Monocytes (Bld) [#/Vol]0.8 10*3/uLNormal 0.0-0.8The [facility] Physician GroupComment on above:Performed By: #### CBC, ALB, BMP ####[place] [address] [place]#### FRUC ####[facility] ,Monocytes/100 WBC (Bld)7.5 %Normal.The [facility] Physician GroupComment on above:Performed By: #### CBC, ALB, BMP ####[address]#### FRUC ####[facility] ,Neutrophils (Bld) [#/Vol]7.4 10*3/uLNormal1.8-7.7 The [facility] Physician GroupComment on above:Performed By: #### CBC, ALB, BMP ####[place] [address] [place]#### FRUC ####[facility] ,Neutrophils/100 WBC (Bld)68.0 %Normal.The [facility] Physician GroupComment on above:Performed By: #### CBC, ALB, BMP ####[place] [id number] [place]#### FRUC ####[facility] ,NRBC%0.0 /100{WBC}Normal0-0.5The [facility] Physician GroupComment on above:Performed By: #### CBC, ALB, BMP ####[address]#### FRUC ####[facility] ,Platelet mean volume (Bld) [Entitic vol]9.0 fLNormal6.3-10.7The [facility] Physician GroupComment on above:Performed By: #### CBC, ALB, BMP ####[address]#### FRUC ####[facility] ,Platelets (Bld) [#/Vol]252 10*3/xVAgabir293-455 The [facility] Physician GroupComment on above:Performed By: #### CBC, ALB, BMP ####[address]#### FRUC ####[facility] ,RBC (Bld) [#/Vol]3.73 10*6/uLNormal3.60-5.00The [facility] Physician GroupComment on above:Performed By: #### CBC, ALB, BMP ####[place] [address] [place]#### FRUC ####[facility] ,WBC (Bld) [#/Vol]10.9 10*3/uLNormal3.8-11.6The [facility] Physician GroupComment on above:Performed By: #### CBC, ALB, BMP ####[place] [address] [place]#### FRUC ####[facility] ,Creatinine [Mass/volume] in Serum or Plasma Ordered By: Da Lozano on 26-87-2971Vhskkqxwrz [Mass/Vol]Creatinine [Mass/volume] in Serum or PlasmaHigh0.60-1.20[facility] Dipstick and Microscopicon 79-04-6562Gukafqcebf (U)TurbidCritically abnormal ClearHca Florida [facility] Physician GroupComment on above:Order Comment: Name Collection Type:: Clean-Voided MidstreamPerformed By: #### ADDONUAPLUS, CUU ####[address], [id number] [place] Bacteria,Urine4+HighNone SeenThe [facility] Physician GroupComment on above:Order Comment: Name Collection Type:: Clean-Voided MidstreamPerformed By: #### ADDONUAPLUS, CUU ####[address] [address] USABilirubin,UrineNegativeNormalNegativeHca Florida [facility] Physician Group Comment on above:Order Comment: Name Collection Type:: Clean-Voided Midstream Performed By: #### ADDONUAPLUS, CUU ####[address] USAColor (U)Light-OrangeCritically abnormalYellowThe [facility] Physician GroupComment on above:Order Comment: Name Collection Type:: Clean-Voided MidstreamPerformed By: #### ADDONUAPLUS, CUU ####[address], [id number] USAGlucose Ql (U)NormalNormal NormalHca Florida [facility]ota Doctors Hospital Physician GroupComment on above:Order Comment: Name Collection Type:: Clean-Voided MidstreamPerformed By: #### ADDONUAPLUS, CUU ####[address], [id number] USAHyaline Casts,UrineNoneNormal0-8The [facility] Physician GroupComment on above:Order Comment: Name Collection Type:: Clean-Voided MidstreamPerformed By: #### ADDONUAPLUS, CUU ####[address] [address] USAKetones Ql (U)NegativeNormalNegativeHca Florida [facility] Physician Group Comment on above:Order Comment: Name Collection Type:: Clean-Voided Midstream Performed By: #### ADDONUAPLUS, CUU ####[address] USALeukocyte esterase Test strip Ql (U)4+HighNegative The [facility] Physician GroupComment on above:Order Comment: Name Collection Type:: Clean-Voided MidstreamPerformed By: #### ADDONUAPLUS, CUU ####[address] USAMucus,UrineRareNormal The [facility] Physician GroupComment on above:Order Comment: Name Collection Type:: Clean-Voided MidstreamResult Comment: PERFORMED BY:[place] [address] [address] [place], [place] [phone] MEDICAL DIRECTORRADHA DURAN M.D.Performed By: #### CRISTOPHERPLUS, CUU ####[address] [place] Nitrite,UrineNegativeNormalNegativeThe [facility] Physician GroupComment on above:Order Comment: Name Collection Type:: Clean-Voided MidstreamPerformed By: #### CARLITOS, CUU ####[address] USAOccult Blood,Urine1+HighNegativeThe Cannon Memorial Hospital Physician GroupComment on above:Order Comment: Name Collection Type:: Clean- Voided MidstreamResult Comment: PERFORMED BY:[place] [address] [address] [place], [place] [phone] MEDICAL DIRECTORRADHA DURAN M.D.Performed By: #### ADDONUAPLUS, CUU ####[address] USApH (U) 6.5 [pH]Normal5.0-9.0The [facility] Physician GroupComment on above:Order Comment: Name Collection Type:: Clean-Voided MidstreamPerformed By: #### ADDONUAPLUS, CUU ####[address] [place] [address] USAProtein (U) [Mass/Vol]70 mg/dLHighNegativeThe [facility] Physician Group Comment on above:Order Comment: Name Collection Type:: Clean-Voided Midstream Performed By: #### ADDONUAPLUS, CUU ####[facility], [id number] USARBC,Urine20 [HPF]High0-4The [facility] Physician GroupComment on above:Order Comment: Name Collection Type:: Clean-Voided MidstreamPerformed By: #### ADDONUAPLUS, CUU ####[place] [address] [address], [id number] USASpecificy Neptune,Urine1.010Normal 1.001-1.030The [facility] Physician GroupComment on above:Order Comment: Name Collection Type:: Clean-Voided MidstreamPerformed By: #### ADDONUAPLUS, CUU ####[place] [address] [address], [id number] USASquamous Epithelial Cell,Urine20 [HPF]High0-2The [facility] Physician GroupComment on above:Order Comment: Name Collection Type:: Clean-Voided MidstreamPerformed By: #### ADDONUAPLUS, CUU ####[place] [address] [address], [id number] USAUrobilinogen,UrineNormalNormalNormalThe [facility] Physician GroupComment on above:Order Comment: Name Collection Type:: Clean- Voided MidstreamPerformed By: #### ADDONUAPLUS, CUU ####[place], [id number] USAWBC CLUMP, UrineManyHighNone SeenThe [facility] Hospital Physician GroupComment on above:Order Comment: Name Collection Type:: Clean-Voided MidstreamPerformed By: #### ADDONUAPLUS, CUU ####[place] [address] [address], [id number] USAWBC,UrineInnumerable High0-4The [facility] Physician GroupComment on above:Order Comment: Name Collection Type:: Clean-Voided MidstreamPerformed By: #### ADDREGGIEUAHONG, CUU ####[facility] [place], [place] [facility] Eosinophils Auto (Bld) [#/Vol]Ordered By: Da Lozano on 06-24-2024 Eosinophils (Bld) [#/Vol]Automated eosinophil count0.0-0.45[facility] Medical CenterEosinophils/100 WBC Auto (Bld)Ordered By: Da Lozano on 95-30-0129Uqrlrmejwub/100 WBC (Bld)Automated eosinophil %.[facility] Medical CenterEpithelial cells.squamous [#/area] in Urine sediment by Automated countOrdered By: Da Lozano on 66-17-5238Adiubtmcny cells.squamous Auto (Urine sed) [#/Area]Epithelial cells.squamous [#/area] in Urine sediment by Automated countHigh0-2FMemorial Health SystemErythrocyte distribution width Auto (RBC) [Ratio]Ordered By: Da Lozano on 41-32-1231Kvmpenpiphw distribution width (RBC) [Ratio]Erythrocyte distribution width [Ratio] by Automated rghibMacy22.9-15.3FMemorial Health SystemErythrocytes [#/area] in Urine sediment by Automated countOrdered By: Da Lozano on 29-26-3075XVH Auto (Urine sed) [#/Area]Erythrocytes [#/area] in Urine sediment by Automated countHigh0-4FMemorial Health SystemFructosamineon 22-61-4178Uekhvqqiubnn402 umol/LHigh0-285The [facility] Physician GroupComment on above:Result Comment: Published reference interval for apparently healthy subjects between age 20 and 60 is 205 - 285 umol/L and in a poorly controlled diabetic population is 228 - 563 umol/L with a mean of 396 umol/L. Performed at: [facility] [id number] Health Safety Manager:Mohan Talbert PhD, Phone: [phone] BY:[facility] [place]AYaelPaulFAUNSD[place], [place] [phone] MEDICAL DIRECTORMOHAMED M EL-FAKHARANY M.D.Performed By: #### CBC, ALB, BMP ####[facility] [address] [place] [id number] [facility]#### FRUC ####[facility] ,Fructosamine [Moles/volume] in Serum or Plasma Ordered By: Da Lozano on 92-03-6382Ikamzdlfbvie [Moles/Vol]Fructosamine [Moles/volume] in Serum or PlasmaGrafton City Hospital0-285[facility] Comment on above:Published reference interval for apparently healthysubjects between age 20 and 60 is 205 - 285 umol/L and in apoorly controlled diabetic population is 228 - 563 umol/Lwith a mean of 396 umol/L.Performed at: [facility] [id number] Director: Mohan Talbert PhD, Phone: [phone] [Mass/volume] in Serum or PlasmaOrdered By: Da Lozano on 38-58-6142Tpaprqr [Mass/Vol]Glucose [Mass/volume] in Serum or Nqswyl68-869RswwgynbgUniversity Hospitals Elyria Medical CenterComment on above:ADA recommended reference rangeRandom Glucose Reference Range is dependent on time and content of last meal. Glucose of more than 200 mg/dL in a nonstressed, ambulatory subject supports the diagnosisof Diabetes Mellitus.Glucose [Mass/volume] in Urine by Test stripOrdered By: Da Lozano on 06-24-2024 Glucose Test strip (U) [Mass/Vol]Glucose [Mass/volume] in Urine by Test strip [facility] HospitalHematocrit Auto (Bld) [Volume fraction] Ordered By: Da Lozano on 52-63-8954Kaexoghzep (Bld) [Volume fraction] Hematocrit [Volume Fraction] of Blood by Automated count34.0-46.4FMemorial Health SystemHemoglobin Test strip Ql (U)Ordered By: Da Lozano on 17-17-2054Onxqyiwdbf Ql (U)Hemoglobin [Presence] in Urine by Test stripHigh NegativeUniversity Hospitals Elyria Medical CenterHemoglobin [Mass/volume] in Blood Ordered By: Da Lozano on 52-67-0232Axbwnkpfnj (Bld) [Mass/Vol]Hemoglobin [Mass/volume] in Blood11.8-15.4FMemorial Health SystemHyaline casts [#/area] in Urine sediment by Automated countOrdered By: Da Lozano on 22-09-2116Vmbewny casts Auto (Urine sed) [#/Area]Hyaline casts [#/area] in Urine sediment by Automated count0-8[facility] Medical CenterKetones Test strip Ql (U)Ordered By: Da Lozano on 81-15-9888Josmjvz Ql (U)Ketones [Presence] in Urine by Test stripNegGreene Memorial Hospital Leukocyte clumps [Presence] in Urine by AutomatedOrdered By: Da Lozano on 24-29-6032Bakymbvmf clumps Auto Ql (U)Leukocyte clumps [Presence] in Urine by AutomatedUnited Hospital Centere Mansfield HospitalLeukocyte esterase [Presence] in Urine by Test stripOrdered By: Da Lozano on 06-24-2024 Leukocyte esterase Test strip Ql (U)Leukocyte esterase [Presence] in Urine by Test stripHighNegGreene Memorial HospitalLeukocytes [#/area] in Urine sediment by Automated countOrdered By: Da Lozano on 52-52-8356BYH Auto (Urine sed) [#/Area]Leukocytes [#/area] in Urine sediment by Automated countHigh04FMemorial Health SystemLeukocytes [#/volume] corrected for nucleated erythrocytes in Blood by Automated counOrdered By: Da Lozano on 08-99-5410GXL corrected for nucl RBC Auto (Bld) [#/Vol]Leukocytes [#/volume] corrected for nucleated erythrocytes in Blood by Automated coun3.8-11.6FMemorial Health SystemLymphocytes Auto (Bld) [#/Vol]Ordered By: Da Lozano on 72-07-1049Fyyxplpxvnv (Bld) [#/Vol]Lymphocytes [#/volume] in Blood by Automated count1.00-4.8[facility] Medical CenterLymphocytes/100 WBC Auto (Bld)Ordered By: Da Lozano on 34-40-9166Ztgmnqcthhx/100 WBC (Bld) Lymphocytes/100 leukocytes in Blood by Automated count.[facility] Medical CenterMCH Auto (RBC) [Entitic mass]Ordered By: Da Lozano on 79-83-7609HEH (RBC) [Entitic mass]MCH [Entitic mass] by Automated count24.7-34.3 [facility] Medical CenterMCHC Auto (RBC) [Mass/Vol]Ordered By: Da Lozano on 49-47-5676NBOD (RBC) [Mass/Vol]MCHC [Mass/volume] by Automated count 32.0-35.0[facility] Medical CenterMCV Auto (RBC) [Entitic vol]Ordered By: Da Lozano on 94-57-2882CZT (RBC) [Entitic vol]MCV [Entitic volume] by Automated -971OuxdmntkmUniversity Hospitals Elyria Medical CenterMonocytes Auto (Bld) [#/Vol]Ordered By: Da Lozano on 16-28-5071Eizyzlpyj (Bld) [#/Vol]Automated blood monocyte count0.0-0.8[facility] Medical CenterMonocytes/100 WBC Auto (Bld)Ordered By: Da Lozano on 71-89-8423Gpqpixskt/100 WBC (Bld) Automated monocyte %.[facility] Medical CenterMucus [Presence] in Urine by AutomatedOrdered By: Da Lozano on 85-22-3217Vlnpt Auto Ql (U)Mucus [Presence] in Urine by AutomatedUniversity Hospitals Elyria Medical CenterNeutrophils Auto (Bld) [#/Vol]Ordered By: Da Lozano on 83-01-2842Gqoyqjqzbcy (Bld) [#/Vol]Neutrophils [#/volume] in Blood by Automated count1.8-7.7FMemorial Health SystemNeutrophils/100 WBC Auto (Bld)Ordered By: Da Lozano on 79-71-1478Bnacvupqlsj/100 WBC (Bld)Automated neutrophil %.[facility] Medical CenterNitrite Test strip Ql (U)Ordered By: Da Lozano on 51-75-2707Mqtnghp Ql (U)Nitrite [Presence] in Urine by Test stripNegative [facility] CenterNo Panel InformationOrdered By: Da Lozano on 09-23-2011Xhybtprzh GFR (CKD-EPI)32.121 mL/MinUniversity Hospitals Elyria Medical CenterPharmacy Creatinine Clearance (ChemN/AFMemorial Health System Nucleated erythrocytes [Presence] in Blood by Automated countOrdered By: Da Lozano on 16-63-7790Lhwodagff RBC Auto Ql (Bld)Nucleated erythrocytes [Presence] in Blood by Automated count0-0.5FMemorial Health SystemPST Type and Screenon 47-55-6527BZV and Rh group Nom (Bld)Blood group A Rh(D) positiveNoAtrium Health Mercy Physician GroupComment on above:Order Comment: Date of Surgery: [id number] Comment: PERFORMED BY:[facility] [place], [place] [phone] MEDICAL DIRECTORRADHA DURAN M.D.Platelet mean volume Auto (Bld) [Entitic vol] Ordered By: Da Lozano on 08-60-1864Ipfplllq mean volume (Bld) [Entitic vol]Platelet mean volume [Entitic volume] in Blood by Automated count6.3-10.7 [facility] Medical CenterPlatelets Auto (Bld) [#/Vol]Ordered By: Da Lozano on 20-40-2109Ncseyycxl (Bld) [#/Vol]Platelets [#/volume] in Blood by Automated dcxbe514-158RhmztmhpsUniversity Hospitals Elyria Medical CenterPotassium [Moles/volume] in Serum or PlasmaOrdered By: Da Lozano on 14-96-6061Xmyfmxvwc [Moles/Vol] Potassium [Moles/volume] in Serum or Plasma3.5-5.1FMemorial Health SystemProtein Test strip (U) [Mass/Vol]Ordered By: Da Lozano on 06-24-2024 Protein (U) [Mass/Vol]Protein [Mass/volume] in Urine by Test stripHighNegative [facility] Medical CenterRBC Auto (Bld) [#/Vol]Ordered By: Da Lozano on 94-16-9510XVS (Bld) [#/Vol]Erythrocytes [#/volume] in Blood by Automated count3.60-5.00Kn[facility] Community Hospitalerum or plasma anion gap determinationOrdered By: Da Lozano on 86-62-9607Cnvmj gap [Moles/Vol] Serum or plasma anion gap determination6.0-15.0[facility] Sodium [Moles/volume] in Serum or PlasmaOrdered By: Da Lozano on 37-74-5251Rmkwwa [Moles/Vol]Sodium [Moles/volume] in Serum or Kpizwv731-354 [facility] Community Hospitalpecific gravity Test strip (U) [Rel density] Ordered By: Da Lozano on 49-46-7477Njehvfjq gravity (U) [Rel density] Specific gravity of Urine by Test strip1.001-1.030[facility] Medical CenterUrea nitrogen [Mass/volume] in Serum or PlasmaOrdered By: Da Lozano on 59-79-8468Looh nitrogen [Mass/Vol]Urea nitrogen [Mass/volume] in Serum or PlasmaHigh7-25[facility] Medical CenterUrine Cultureon 06-24-2024 Bacteria identified Cx Nom (U)NormalThe [facility] Physician GroupComment on above:Performed By: #### CARLITOS, CUU ####[facility] [place], [place] [facility] CENTERUrine cultureOrdered By: Da Lozano on 47-60-2792Vycoqstr identified Cx Nom (U)Urine cultureUniversity Hospitals Elyria Medical CenterUrobilinogen Test strip (U) [Mass/Vol]Ordered By: Da Lozano on 09-58-8860Ddopwyldmlao (U) [Mass/Vol]Urobilinogen [Mass/volume] in Urine by Test stripNormalUniversity Hospitals Elyria Medical CenterWBC Auto (Bld) [#/Vol]Ordered By: Da Lozano on 87-05-9597EIR (Bld) [#/Vol]Leukocytes [#/volume] in Blood by Automated count3.8-11.6FMemorial Health SystempH Test strip (U)Ordered By: Da Lozano on 83-85-0200qX (U)pH of Urine by Test strip5.0-9.0 [facility] Medical CenterGlucose Glucometer (BldC) [Mass/Vol]Ordered By: Yaniv Natarajan on 66-58-5125Szxyuva [Mass/Vol]Capillary blood glucose measurement by glucometer (mass/volume)[facility] Medical CenterComment on above: Random Glucose Reference Range is dependent on time and content of last meal. Glucose of more than 200 mg/dL in a nonstressed, ambulatory subject supports the diagnosis of Diabetes Mellitus.Glucose Poct Glucometerson 64-49-8523Rhbuejb [Mass/Vol]247 mg/dLTampa Shriners Hospital Physician [facility] Regional HospitalComment on above:Result Comment: Random Glucose Reference Range is dependent on time and content of last meal. Glucose of more than 200 mg/dL in a nonstressed, ambulatory subject supports the diagnosis of Diabetes Mellitus.PERFORMED BY:[address] TEAYaelPaulFAUNSDALE, [place] [phone] MEDICAL DIRECTORRADHA DURAN M.D.Performed By: #### GLULS ####Point of Care testing,Fwpijfy8Pvl5: Cleaned [facility] Physician [facility] Regional HospitalComment on above:Performed By: #### GLULS ####Point of Care testing,Dpskirg1GRFB NOTIFY /LIANETampa Shriners Hospital Physician GroupComment on above:Result Comment: PERFORMED BY:[address]CA[address] [place]ARZAARK[place], [place] [phone] MEDICAL DIRECTORRADHA DURAN M.D. Performed By: #### GLULS ####Point of Care testing,Glucose [Mass/Vol]174 mg/dL [facility] Physician [facility] HospitalComment on above:Result Comment: Random Glucose Reference Range is dependent on time and content of last meal. Glucose of more than 200 mg/dL in a nonstressed, ambulatory subject supports the diagnosis of Diabetes Mellitus.Performed By: #### GLULS ####Point of Care testing,No Panel InformationOrdered By: Yaniv Natarajan on 09-42-6240Fdgbnuc Glucose #2 CommentWill notify /[facility] WestBedside Glucose CommentGlu2: cleaned [facility] HospitalXR KUBon 68-63-0258XG KUBNCatawba Valley Medical Center Physician GroupLaboratory - Chemistry and Chemistry - challengeon 72-24-9132Pahzmcwka Ql (U)NegativeUniversity Hospitals Elyria Medical CenterGlucose (U) [Mass/Vol][facility] Ketones Ql (U)NegativeUniversity Hospitals Elyria Medical CenterpH (U)5 [pH][facility] Community Hospitalpecific gravity (U) [Rel density]1.005[facility] Medical CenterUrobilinogen (U) [Mass/Vol]0.2 mg/dLUniversity Hospitals Elyria Medical CenterLaboratory - Specimen informationon 18-09-2709Tifyrktlpc (U)cloudy [facility] Medical CenterColor (U)lightyellowUniversity Hospitals Elyria Medical CenterLaboratory - Urinalysison 03-80-2036Nxtiwfhyv esterase Test strip Ql (U) +++[facility] Medical CenterNitrite Ql (U)NegativeUniversity Hospitals Elyria Medical CenterProtein Ql (U)NegativeUniversity Hospitals Elyria Medical CenterNo Panel Informationon 39-16-6924Fsaoz Occult BloodNegativeUniversity Hospitals Elyria Medical CenterUrine Cultureon 13-10-5657Kxqltxbm identified Cx Nom (U)No Growth 2 Days PERFORMED BY: [facility] [address] [place] [address] PATHOLOGIST TAG MAKER RADHA DURAN M.D.NormalThe [facility] Physician GroupComment on above: Performed By: #### CUU ####[facility] [address] [place] [address] USAUrine cultureOrdered By: Stefan Best on 05-25-2024 Bacteria identified Cx Nom (U)Urine cultureUniversity Hospitals Elyria Medical Center Basic Metabolic Panelon 76-91-4690Gccyw gap [Moles/Vol]11.4 mmol/LNormal6.0-15.0 The [facility] Physician GroupComment on above:Performed By: #### PT, BMP, PTT, CBC ####[facility] [address] [place] [address] [facility] Calcium [Mass/Vol]10.1 mg/dLNormal8.6-10.3The [facility] Physician GroupComment on above:Result Comment: PERFORMED BY:[facility] LINFAUN[place], [place] [phone] MEDICAL DIRECTORCORAL BECKETT M.D.Performed By: #### PT, BMP, PTT, CBC ####[place] [address] [place] [address] USAChloride [Moles/Vol]98 mmol/IVdroxh16-595Xju [facility] Physician GroupComment on above:Performed By: #### PT, BMP, PTT, CBC ####[address] [address] USACO2 [Moles/Vol]30.4 mmol/QIzckjz79.0-31.0The [facility] Physician GroupComment on above:Performed By: #### PT, BMP, PTT, CBC ####[address] [address] USACreatinine [Mass/Vol]1.77 mg/dLHigh 0.60-1.20The [facility] Physician GroupComment on above:Performed By: #### PT, BMP, PTT, CBC ####[place] [address] USAGFR/1.73 sq M.predicted MDRD (S/P/Bld) [Vol rate/Area]29.063 mL/min/{1.73_m2}NormalThe [facility] Physician GroupComment on above:Performed By: #### PT, BMP, PTT, CBC ####[place] [address] USAGlucose [Mass/Vol]252 mg/lSUlam87-018Ldf [facility] Physician GroupComment on above:Result Comment: Random Glucose Reference Range is dependent on time and content of last meal. Glucose of more than 200 mg/dL in a nonstressed, ambulatory subject supports the diagnosis of Diabetes Mellitus. ADA recommended reference rangePerformed By: #### PT, BMP, PTT, CBC ####[address] [address] [place] Potassium [Moles/Vol]4.8 mmol/LNormal3.5-5.1The [facility] Physician GroupComment on above:Performed By: #### PT, BMP, PTT, CBC ####[address] [address] USASodium [Moles/Vol]135 mmol/TRti417-645 The [facility] Physician GroupComment on above:Performed By: #### PT, BMP, PTT, CBC ####[address] [address] [place] [address] [place] Urea nitrogen [Mass/Vol]45 mg/dLHigh7-25The [facility] Physician GroupComment on above:Performed By: #### PT, BMP, PTT, CBC ####[address] [address] [address] [place] [address] USABasophils Auto (Bld) [#/Vol]Ordered By: Yaniv Natarajan on 73-93-9738Ooubgitfs (Bld) [#/Vol]Automated basophil count 0.0-0.2FMemorial Health SystemBasophils/100 WBC Auto (Bld)Ordered By: Yaniv Natarajan on 86-06-2348Uabsryepa/100 WBC (Bld)Automated basophil %.[facility] Medical CenterCalcium [Mass/volume] in Serum or PlasmaOrdered By: Yaniv Natarajan on 87-68-2099Tierhca [Mass/Vol]Calcium [Mass/volume] in Serum or Plasma8.6-10.3FMemorial Health SystemCarbon dioxide, total [Moles/volume] in Serum or PlasmaOrdered By: Yaniv Natarajan on 64-27-3122YA8 [Moles/Vol]Carbon dioxide, total [Moles/volume] in Serum or Echpqp05.0-31.0 [facility] Medical CenterChloride [Moles/volume] in Serum or Plasma Ordered By: Yaniv Natarajan on 67-90-5366Yhfjdisb [Moles/Vol]Chloride [Moles/volume] in Serum or Amhgai26-419HwcrgizcdUniversity Hospitals Elyria Medical CenterComplete Blood Count Auto Diffon 35-53-5343Ccqavexas (Bld) [#/Vol]0.1 10*3/uLNormal 0.0-0.2The [facility] Physician GroupComment on above:Result Comment: PERFORMED BY:[address] [address] [address] [place], [place] [phone] MEDICAL DIRECTORCORAL BECKETT M.D.Performed By: #### PT, BMP, PTT, CBC ####[address] [place] [address] [place] Basophils/100 WBC (Bld)0.8 %Normal.The [facility] Physician GroupComment on above:Performed By: #### PT, BMP, PTT, CBC ####[place] [address] USAEosinophils (Bld) [#/Vol]0.3 10*3/uL Normal0.0-0.45The [facility] Physician GroupComment on above:Performed By: #### PT, BMP, PTT, CBC ####[place] [address] USAEosinophils/100 WBC (Bld)2.4 %Normal.The [facility] Comment on above:Performed By: #### PT, BMP, PTT, CBC ####[place] [address] USAErythrocyte distribution width (RBC) [Ratio]16.1 %High11.9-15.3The [facility] Physician GroupComment on above: Performed By: #### PT, BMP, PTT, CBC ####[place] [address] USAHematocrit (Bld) [Volume fraction]36.6 %Normal 34.0-46.4The [facility] Physician GroupComment on above:Performed By: #### PT, BMP, PTT, CBC ####[place] [address] USAHemoglobin (Bld) [Mass/Vol]12.0 g/sGJvsvdu80.8-15.4The [facility] Physician GroupComment on above:Performed By: #### PT, BMP, PTT, CBC ####[place] [address] [place] Lymphocytes (Bld) [#/Vol]1.8 10*3/uLNormal1.00-4.8The [facility] Comment on above:Performed By: #### PT, BMP, PTT, CBC ####[place] [address] USALymphocytes/100 WBC (Bld)14.2 %Normal.The [facility] Physician GroupComment on above:Performed By: #### PT, BMP, PTT, CBC ####[address] (RBC) [Entitic mass]32.1 kgUpgpze79.7-34.3The [facility] Physician GroupComment on above:Performed By: #### PT, BMP, PTT, CBC ####[address] (RBC) [Entitic vol]98.0 nRUxrmnx44-711Qxy [facility] Physician GroupComment on above:Performed By: #### PT, BMP, PTT, CBC ####[place] [address] USAMean Corpuscular HGB Conc32.7 g/rBZuohcg74.0-35.0The [facility] Physician GroupComment on above:Performed By: #### PT, BMP, PTT, CBC ####[place] [address] [place] Monocytes (Bld) [#/Vol]0.8 10*3/uLNormal0.0-0.8The [facility] Comment on above:Performed By: #### PT, BMP, PTT, CBC ####[place] [address] USAMonocytes/100 WBC (Bld)6.4 % Normal.The [facility] Physician GroupComment on above:Performed By: #### PT, BMP, PTT, CBC ####[place] [address] USANeutrophils (Bld) [#/Vol]9.7 10*3/uLHigh1.8-7.7The [facility] Comment on above:Performed By: #### PT, BMP, PTT, CBC ####[place] [address] USANeutrophils/100 WBC (Bld)76.2 %Normal.The [facility] Physician GroupComment on above:Performed By: #### PT, BMP, PTT, CBC ####[place] [address] USANRBC%0.1 /100{WBC}Normal0-0.5The [facility] Physician GroupComment on above:Performed By: #### PT, BMP, PTT, CBC ####[place] [address] USAPlatelet mean volume (Bld) [Entitic vol]9.3 fLNormal6.3-10.7The [facility] Physician GroupComment on above:Performed By: #### PT, BMP, PTT, CBC ####[place] [address] USAPlatelets (Bld) [#/Vol]216 10*3/pRYauagu377-042Xbu [facility] Physician GroupComment on above:Performed By: #### PT, BMP, PTT, CBC ####[place] [address] USARBC (Bld) [#/Vol]3.73 10*6/uLNormal3.60-5.00The [facility] Physician GroupComment on above:Performed By: #### PT, BMP, PTT, CBC ####[place] [address] USAWBC (Bld) [#/Vol]12.8 10*3/uLHigh 3.8-11.6The [facility] Physician GroupComment on above:Performed By: #### PT, BMP, PTT, CBC ####[place] [address] USACreatinine [Mass/volume] in Serum or PlasmaOrdered By: Yaniv Natarajan on 56-46-4248Xanhnjnrbu [Mass/Vol]Creatinine [Mass/volume] in Serum or PlasmaHigh 0.60-1.20[facility] Medical CenterEosinophils Auto (Bld) [#/Vol]Ordered By: Yaniv Natarajan on 71-40-7843Oiwxvsoajmm (Bld) [#/Vol]Automated eosinophil count0.0-0.45[facility] Medical CenterEosinophils/100 WBC Auto (Bld) Ordered By: Yaniv Natarajan on 01-65-2387Cmdcdwqesyz/100 WBC (Bld)Automated eosinophil %.[facility] Medical CenterErythrocyte distribution width Auto (RBC) [Ratio]Ordered By: Yaniv Natarajan on 81-25-3855Wgvuldlttqr distribution width (RBC) [Ratio]Erythrocyte distribution width [Ratio] by Automated count High11.9-15.3FMemorial Health SystemGlucose [Mass/volume] in Serum or PlasmaOrdered By: Yaniv Natarajan on 93-18-8493Rszqlkg [Mass/Vol]Glucose [Mass/volume] in Serum or NbbmuqEzxv23-571XghbivhjaUniversity Hospitals Elyria Medical Center Comment on above:ADA recommended reference rangeRandom Glucose Reference Range is dependent on time and content of last meal. Glucose of more than 200 mg/dL in a nonstressed, ambulatory subject supports the diagnosisof Diabetes Mellitus. Hematocrit Auto (Bld) [Volume fraction]Ordered By: Yaniv Natarajan on 05-21-2024 Hematocrit (Bld) [Volume fraction]Hematocrit [Volume Fraction] of Blood by Automated count34.0-46.4FMemorial Health SystemHemoglobin [Mass/volume] in BloodOrdered By: Yaniv Natarajan on 50-10-4044Rzaqprugxz (Bld) [Mass/Vol]Hemoglobin [Mass/volume] in Blood11.8-15.4FMemorial Health SystemINR in Platelet poor plasma by Coagulation assayOrdered By: Yaniv Natarajan on 89-32-2931WLC Coag (PPP) [Relative time]INR in Platelet poor plasma by Coagulation assayUniversity Hospitals Elyria Medical CenterComment on above:INR Therapeutic Range A) Pre- and Peroperative OAT started two weeks before surgery. NOT HIP SURGERY: 1.5 - 2.5 HIP SURGERY: 2 - 3B) Primary and secondary prevention of venous THROMBOSIS: 2 - 3C) Active venous thrombosis, pulmonary embolismand prevention of recurrent venous thrombosis: 2 - 3D) Prevention of arterial thromboembolismincluding patients with mechanical heart valves: 3 - 4.5 Leukocytes [#/volume] corrected for nucleated erythrocytes in Blood by Automated counOrdered By: Yaniv Natarajan on 35-81-5979SND corrected for nucl RBC Auto (Bld) [#/Vol]Leukocytes [#/volume] corrected for nucleated erythrocytes in Blood by Automated counHigh3.8-11.6FMemorial Health SystemLymphocytes Auto (Bld) [#/Vol]Ordered By: Yaniv Natarajan on 07-17-9996Kqwvkjfyjcv (Bld) [#/Vol] Lymphocytes [#/volume] in Blood by Automated count1.00-4.8[facility] Medical CenterLymphocytes/100 WBC Auto (Bld)Ordered By: Yaniv Natarajan on 97-55-7536Qsweqthoweq/100 WBC (Bld)Lymphocytes/100 leukocytes in Blood by Automated count.[facility] Auto (RBC) [Entitic mass] Ordered By: Yaniv Natarajan on 88-79-0870SDE (RBC) [Entitic mass]MCH [Entitic mass] by Automated count24.7-34.3FMemorial Health SystemMCHC Auto (RBC) [Mass/Vol]Ordered By: Yaniv Natarajan on 32-63-4553GREM (RBC) [Mass/Vol]MCHC [Mass/volume] by Automated count32.0-35.0[facility] Medical CenterMCV Auto (RBC) [Entitic vol]Ordered By: Yaniv Natarajan on 57-15-2395HID (RBC) [Entitic vol]MCV [Entitic volume] by Automated vjyxt67-022QxhnhuwvxUniversity Hospitals Elyria Medical CenterMonocytes Auto (Bld) [#/Vol]Ordered By: Yaniv Natarajan on 05-21-2024 Monocytes (Bld) [#/Vol]Automated blood monocyte count0.0-0.8[facility] Medical CenterMonocytes/100 WBC Auto (Bld)Ordered By: Yaniv Natarajan on 05-21-2024 Monocytes/100 WBC (Bld)Automated monocyte %.[facility] Neutrophils Auto (Bld) [#/Vol]Ordered By: Yaniv Natarajan on 46-62-1685Sjditmhlwvo (Bld) [#/Vol]Neutrophils [#/volume] in Blood by Automated countHigh1.8-7.7 [facility] Medical CenterNeutrophils/100 WBC Auto (Bld)Ordered By: Yaniv Natarajan on 42-79-2111Yedfrnyehwb/100 WBC (Bld)Automated neutrophil %. [facility] CenterNo Panel InformationOrdered By: Yaniv Natarajan on 53-85-0914Wozaqadxi GFR (CKD-EPI)29.063 mL/MinUniversity Hospitals Elyria Medical Center Pharmacy Creatinine Clearance (ChemN/AFMemorial Health SystemNucleated erythrocytes [Presence] in Blood by Automated countOrdered By: Yaniv Natarajan on 30-60-3237Yegefhdfo RBC Auto Ql (Bld)Nucleated erythrocytes [Presence] in Blood by Automated count0-0.5FMemorial Health SystemPartial Thromboplastin Timeon 89-48-4884vBLG Coag (Bld) [Time]29.9 yAsmgod55.1-36.5[facility] Physician GroupComment on above:Result Comment: A hematocrit value greater than 55% may lead to inaccurate results in coagulation testing. Patients having hematocrit values >55% require a special collection tube for coagulation s tudies. Please contact the laboratory at [phone] for redraw instructions.PERFORMED BY:[facility] [place], [place] [phone] MEDICAL DIRECTORCORAL BECKETT M.D. Performed By: #### PT, BMP, PTT, CBC ####[facility] [address] [place] [id number] USAPlatelet mean volume Auto (Bld) [Entitic vol] Ordered By: Yaniv Natarajan on 81-44-3534Bfcvdfrq mean volume (Bld) [Entitic vol] Platelet mean volume [Entitic volume] in Blood by Automated count6.3-10.7 [facility] Medical CenterPlatelets Auto (Bld) [#/Vol]Ordered By: Yaniv Natarajan on 17-54-6203Ypwefjczj (Bld) [#/Vol]Platelets [#/volume] in Blood by Automated ojloc943-091IsfojdmhzUniversity Hospitals Elyria Medical CenterPotassium [Moles/volume] in Serum or PlasmaOrdered By: Yaniv Natarajan on 98-85-3838Ugcrvsyym [Moles/Vol] Potassium [Moles/volume] in Serum or Plasma3.5-5.1FMemorial Health SystemProthrombin Time INRon 24-62-6271IXJ Coag (PPP) [Relative time]1.0 {INR} NormalThe [facility] Hospital Physician GroupComment on above:Result Comment: INR Therapeutic Range A) Pre- and [...] patients with mechanical heart valves: 3 - 4.5Performed By: #### PT, BMP, PTT, CBC ####[facility] [address] [place] [address] USAPT Coag (PPP) [Time]11.1 sNormal9.0-12.9[facility] Physician GroupComment on above:Result Comment: A hematocrit value greater than 55% may lead to inaccurate results in coagulation testing. Patients having hematocrit values >55% require a special collection tube for coagulation studies. Please contact the laboratory at [phone] for redraw instructions. Performed By: #### PT, BMP, PTT, CBC ####[facility] [address] [place] [address] USAProthrombin time (PT)Ordered By: Yaniv Natarajan on 81-89-8132SI Coag (PPP) [Time]Prothrombin time (PT)9.0-12.9[facility] Medical CenterComment on above:A hematocrit value greater than 55% may lead to inaccurate results in coagulation testing. Patientshaving hematocrit values >55% require a special collection tube for coagulation studies. Please contact the laboratory at [phone] for redraw instructions.RBC Auto (Bld) [#/Vol]Ordered By: Yaniv Natarajan on 81-53-3320EKH (Bld) [#/Vol]Erythrocytes [#/volume] in Blood by Automated count3.60-5.00Kn[facility] Community Hospitalerum or plasma anion gap determinationOrdered By: Yaniv Natarajan on 81-27-4526Oqzah gap [Moles/Vol]Serum or plasma anion gap determination6.0-15.0[facility] Hospitalodium [Moles/volume] in Serum or PlasmaOrdered By: Yaniv Natarajan on 87-98-6670Bziwmk [Moles/Vol]Sodium [Moles/volume] in Serum or PlasmaLow 136-145[facility] Medical CenterUrea nitrogen [Mass/volume] in Serum or PlasmaOrdered By: Yaniv Natarajan on 13-47-4034Ytnm nitrogen [Mass/Vol]Urea nitrogen [Mass/volume] in Serum or PlasmaHigh7-25[facility] Medical CenterWBC Auto (Bld) [#/Vol]Ordered By: Yaniv Natarajan on 74-80-6290QDG (Bld) [#/Vol]Leukocytes [#/volume] in Blood by Automated countHigh3.8-11.6FMemorial Health SystemaPTT in Platelet poor plasma by Coagulation assayOrdered By: Yaniv Natarajan on 22-20-6135gGFL Coag (PPP) [Time]Activated partial thromboplastin time (aPTT) in platelet poor plasma by coagulation a25.1-36.5 [facility] Medical CenterComment on above:A hematocrit value greater than 55% may lead to inaccurate results in coagulation testing. Patientshaving hematocrit values >55% require a special collection tube for coagulation studies. Please contact the laboratory at [phone] for redraw instructions. Laboratory - Chemistry and Chemistry - challengeon 45-57-3599Ykudmotud Ql (U) NegativeUniversity Hospitals Elyria Medical CenterGlucose (U) [Mass/Vol]NegativeUniversity Hospitals Elyria Medical CenterKetones Ql (U)NegativeUniversity Hospitals Elyria Medical Center pH (U)7.0 [pH][facility] Community Hospitalpecific gravity (U) [Rel density]1.010[facility] Medical CenterUrobilinogen (U) [Mass/Vol]0.2 mg/dLUniversity Hospitals Elyria Medical CenterLaboratory - Specimen informationon 78-63-4989Fxruwreddk (U)cloudyUniversity Hospitals Elyria Medical CenterColor (U)yellow [facility] CenterLaboratory - Urinalysison 78-37-1811Lenmwynpu esterase Test strip Ql (U)largeUniversity Hospitals Elyria Medical CenterNitrite Ql (U) PositiveUniversity Hospitals Elyria Medical CenterProtein Ql (U)30[facility] CenterNo Panel Informationon 80-32-8679Nzbhv Occult BloodsmallUniversity Hospitals Elyria Medical CenterUrine cultureOrdered By: Stefan Best on 04-07-2024 Bacteria identified Cx Nom (U)Urine cultureUniversity Hospitals Elyria Medical Center Immunofixation for Urineon 62-71-7241Pdrsmiimreynbx Immunofixation (U) [Interp] Comment.[facility]lyria Medical CenterComment on above:No monoclonality detected.Performed at: [facility] [id number] Director: Mohan Talbert PhD, Phone: [phone] Immunofixation (U) [Interp]Immunofixation for Urine.[facility] Medical CenterComment on above:No monoclonality detected.Performed at: [facility] [employer] [id number] Director: Mohan Talbert PhD, Phone: [phone] - Chemistry and Chemistry - challengeon 03-19-2024 Bilirubin Ql (U)NegativeNEGCincinnati VA Medical CenterGlucose (U) [Mass/Vol]NegativeNEGATIVEUniversity Hospitals Elyria Medical CenterKetones Ql (U) NegativeNEGCincinnati VA Medical CenterpH (U)6.0 [pH]5.0-9.0Kn[facility] Community Hospitalpecific gravity (U) [Rel density]1.0101.005-1.025 [facility] Medical CenterUrobilinogen Qn (U)0.2 {Joe'U}/dL0.2-1.0 [facility] CenterLaboratory - Specimen informationon 03-19-2024 Appearance (U)SL CLOUDYCLEARFMemorial Health SystemColor (U)YELLOW YELLOWUniversity Hospitals Elyria Medical CenterLaboratory - Urinalysison 03-19-2024 Leukocyte esterase Test strip Ql (U)LARGEAbnormalNEGATIVEUniversity Hospitals Elyria Medical CenterMucus Ql (Urine sed)NONE SEENNONE SEENUniversity Hospitals Elyria Medical CenterNitrite Ql (U)PositiveAbnormalNEGCincinnati VA Medical Center Protein (U) [Mass/Vol]77.9 mg/dLHigh<=11.9[facility] Protein Ql (U)100 mg/dLAbnormalNEG/TRACEUniversity Hospitals Elyria Medical CenterNo Panel Informationon 33-50-4964Mklbh BacteriaMODERATE #/HPFAbnormalNONE SEEN [facility] Medical CenterUrine Occult BloodSMALLAbnormalNEGATIVE [facility] Medical CenterUrine Other CastsNONE SEEN #/LPFNONE SEEN [facility] Medical CenterUrine Other CrystalsNone Seen #/HPFNone Seen [facility] Medical CenterUrine Random Kbbbksoshd27.17 mg/dL20.00-300.00 [facility] Medical CenterUrine RBC2-5 #/HPFAbnormal0-2FMemorial Health SystemUrine Squamous Epithelial CellsFEW #/LPFAbnormalNONE/RARE [facility] Medical CenterUrine WBC>100 #/HPFAbnormalNONE SEENUniversity Hospitals Elyria Medical CenterUrine protein/creatinine ratioon 03-19-2024 Protein/Creatinine (U) [Ratio]3.09[facility] Protein/Creatinine (U) [Ratio]Urine protein/creatinine ratioUniversity Hospitals Elyria Medical CenterAlbumin [Mass/volume] in Serum or Plasmaon 75-52-8354Roasexj [Mass/Vol]3.2 g/dL2.9-4.4FMemorial Health SystemAlbumin [Mass/Vol] Albumin [Mass/volume] in Serum or Plasma2.9-4.4FMemorial Health System Erythrocyte distribution width Auto (RBC) [Ratio]on 22-02-9073Zclfemgkcxq distribution width (RBC) [Ratio]15.3 %High11.0-15.0[facility] Medical CenterErythrocyte distribution width (RBC) [Ratio]Erythrocyte distribution width [Ratio] by Automated xraymIdve76.0-15.0[facility] Estimated glomerular filtration rate (GFR) non- Americanon 03-17-2024 GFR/1.73 sq M.predicted among non-blacks MDRD (S/P/Bld) [Vol rate/Area]29 mL/min/{1.73_m2}Low>=60[facility] Medical CenterGFR/1.73 sq M.predicted among non-blacks MDRD (S/P/Bld) [Vol rate/Area]Estimated glomerular filtration rate (GFR) non- AmericanLow>=60[facility] Hematocrit Auto (Bld) [Volume fraction]on 73-53-8405Kxsjgzvmlo (Bld) [Volume fraction]37.9 %36.0-48.0[facility] Medical CenterHematocrit (Bld) [Volume fraction]Hematocrit [Volume Fraction] of Blood by Automated count 36.0-48.0[facility] Medical CenterHemoglobin [Mass/volume] in Bloodon 61-77-9672Savxarwxde (Bld) [Mass/Vol]11.6 g/dLLow12.0-16.0[facility] Medical CenterHemoglobin (Bld) [Mass/Vol]Hemoglobin [Mass/volume] in BloodLow 12.0-16.0[facility] Medical CenterIgA [Mass/volume] in Serum or Plasmaon 54-13-8565YwT [Mass/Vol]366 mg/xF60-920EpapjmjolUniversity Hospitals Elyria Medical CenterIgA [Mass/Vol]IgA [Mass/volume] in Serum or Ulriht98-316CfhfikmlaUniversity Hospitals Elyria Medical CenterIgG [Mass/volume] in Serum or Plasmaon 60-89-4364PpM [Mass/Vol]1043 mg/dL 586-1602University [facility] Medical CenterIgG [Mass/Vol]IgG [Mass/volume] in Serum or Npfybi106-4414XyavvaeuvUniversity Hospitals Elyria Medical CenterIgM [Mass/volume] in Serum or Plasmaon 12-86-6895XqF [Mass/Vol]87 mg/vO39-782LdfeqivlfUniversity Hospitals Elyria Medical CenterIgM [Mass/Vol]IgM [Mass/volume] in Serum or Bikebn28-458YakxxdebpUniversity Hospitals Elyria Medical CenterImmunoglobulin light chains.kappa.free [Mass/volume] in Serumon 23-94-6728Aewmyadutnmsue light chains.kappa.free (S) [Mass/Vol]112.4 mg/LAbnormal3.3-19.4FMemorial Health SystemImmunoglobulin light chains.kappa.free (S) [Mass/Vol]Immunoglobulin light chains.kappa.free [Mass/volume] in SerumAbnormal3.3-19.4FMemorial Health System Immunoglobulin light chains.kappa.free/Immunoglobulin light chains.lambda.free [Radha 32-44-8922Ldvxnimyzhnoeq light chains.kappa.free/Immunoglobulin light chains.lambda.free (S) [Mass ratio]1.19Hjmopoid7.26-1.65[facility] Medical CenterComment on above:Performed at: [facility] [id number] Director: Mohan Talbert PhD, Phone: [phone] Immunoglobulin light chains.kappa.free/Immunoglobulin light chains.lambda.free (S) [Mass ratio]Immunoglobulin light chains.kappa.free/Immunoglobulin light chains.lambda.free [MassAbnormal0.26-1.65[facility] Comment on above:Performed at: - [facility] [id number] Director: Mohan Talbert PhD, Phone: [phone] light chains.lambda.free [Mass/volume] in Serum or Plasmaon 03-17-2024 Immunoglobulin light chains.lambda.free [Mass/Vol]61.0 mg/LAbnormal5.7-26.3 [facility] Medical CenterImmunoglobulin light chains.lambda.free [Mass/Vol]Immunoglobulin light chains.lambda.free [Mass/volume] in Serum or PlasmaAbnormal5.7-26.3FMemorial Health SystemIron binding capacity [Mass/volume] in Serum or Plasmaon 18-07-7833Jgrh binding capacity [Mass/Vol] 256.0 ug/dL250.0-450.0[facility] Medical CenterIron binding capacity [Mass/Vol]Iron binding capacity [Mass/volume] in Serum or Hygkqd144.0-450.0 [facility] Medical CenterIron saturation [Mass Fraction] in Serum or Plasmaon 37-14-0535Jbdk saturation [Mass fraction]25.4 %[facility] Medical CenterIron saturation [Mass fraction]Iron saturation [Mass Fraction] in Serum or PlasmaUniversity Hospitals Elyria Medical CenterLaboratory - Chemistry and Chemistry - challengeon 80-73-0118Uofutfe [Mass/Vol]3.1 g/dLLow3.4-5.0[facility] Medical CenterCalcium [Mass/Vol]9.8 mg/dL8.5-10.1FMemorial Health SystemChloride [Moles/Vol]100 mmol/F59-160VmsgponklUniversity Hospitals Elyria Medical CenterCO2 [Moles/Vol]29.6 mmol/L21.0-32.0[facility] Cobalamin (Vitamin B12) [Mass/Vol]456 pg/eD156-8963LmgbmpsnzUniversity Hospitals Elyria Medical CenterComment on above:Performed at: [facility] [address] [id number] Director: Mohan Talbert PhD, Phone: [phone] Creatinine [Mass/Vol]1.71 mg/dLHigh0.55-1.02[facility] Ferritin [Mass/Vol]174.0 ng/mL8.0-252.0[facility] CenterGFR/1.73 sq M.predicted MDRD (S/P/Bld) [Vol rate/Area]35 mL/min/{1.73_m2}Low>=60 [facility] Medical CenterGlucose [Mass/Vol]137 mg/cVUzwa74-509HxjgnixsfUniversity Hospitals Elyria Medical CenterIron [Mass/Vol]65.0 ug/dL50.0-170.0[facility] Medical CenterMagnesium [Mass/Vol]1.9 mg/dL1.8-2.4FMemorial Health SystemPotassium [Moles/Vol]4.1 mmol/L3.5-5.1FMemorial Health System Sodium [Moles/Vol]140 mmol/B379-095ImlfceitcUniversity Hospitals Elyria Medical CenterUrate [Mass/Vol]4.6 mg/dL2.6-6.0[facility] Medical CenterUrea nitrogen [Mass/Vol]37.0 mg/dLHigh7.0-18.0[facility] Medical CenterUrea nitrogen/Creatinine [Mass ratio]21.6 mg/mgUniversity Hospitals Elyria Medical Center Leukocytes [#/volume] corrected for nucleated erythrocytes in Blood by Automated counon 73-05-8359AMF corrected for nucl RBC Auto (Bld) [#/Vol]9.1 10 3/uL 4.0-11.0[facility] Medical CenterWBC corrected for nucl RBC Auto (Bld) [#/Vol]Leukocytes [#/volume] corrected for nucleated erythrocytes in Blood by Automated coun4.0-11.0[facility] Auto (RBC) [Entitic mass]on 28-66-1449GSP (RBC) [Entitic mass]31.2 pg26.7-34.0[facility] (RBC) [Entitic mass]MCH [Entitic mass] by Automated count 26.7-34.0[facility] Medical CenterMCHC Auto (RBC) [Mass/Vol]on 77-13-4460WESC (RBC) [Mass/Vol]30.6 g/dL29.9-35.2FMemorial Health SystemMCHC (RBC) [Mass/Vol]MCHC [Mass/volume] by Automated count29.9-35.2 [facility] Medical CenterMCV Auto (RBC) [Entitic vol]on 35-55-7451HOW (RBC) [Entitic vol]101.9 bXPdwk32.0-99.0[facility] HospitalV (RBC) [Entitic vol]MCV [Entitic volume] by Automated rfpcmVqxu20.0-99.0[facility] CenterNo Panel Informationon 472530-Pxxoztl Vitamin D Total91.3 ng/mLUniversity Hospitals Elyria Medical CenterComment on above:<20 ng/mL Vit D obcumriyd16-<30 ng/mL Vit D eiciloobdjae74-639 ng/mL Vit D sufficient>100 ng/mL Potential IkwzslmzTuggkv92.10 ng/mL8.60-58.90[facility] Parathyroid Hormone (Intact)28 pg/bE55-78PewlewkezUniversity Hospitals Elyria Medical Center Comment on above:Performed at: [place]ixGeorge [place] [id number] Director: Mohan Talbert PhD, Phone: [phone] Level 3.6 mg/dL2.6-4.7FMemorial Health SystemProtein Electrophoresis M-Rafiq Not Observed g/dLNot ObservedUniversity Hospitals Elyria Medical CenterProtein Electrophoresis NoteComment.[facility] CenterComment on above: Protein electrophoresis scan will follow via computer,mail, or road grader operator delivery. Platelet mean volume Auto (Bld) [Entitic vol]on 38-10-8879Bzyzuinz mean volume (Bld) [Entitic vol]11.5 fL9.5-13.5FMemorial Health SystemPlatelet mean volume (Bld) [Entitic vol]Platelet mean volume [Entitic volume] in Blood by Automated count9.5-13.5FMemorial Health SystemPlatelets Auto (Bld) [#/Vol]on 95-29-1545Bltllwiqp (Bld) [#/Vol]232 10 3/pY660-620QmpeorzmqUniversity Hospitals Elyria Medical CenterPlatelets (Bld) [#/Vol]Platelets [#/volume] in Blood by Automated aivuj218-738UdtswgnlkUniversity Hospitals Elyria Medical CenterProtein [Mass/volume] in Serum or Plasmaon 75-04-6605Mdhsphx [Mass/Vol]6.9 g/dL6.0-8.5FMemorial Health SystemProtein [Mass/Vol]Protein [Mass/volume] in Serum or Plasma6.0-8.5FMemorial Health SystemRB Auto (Bld) [#/Vol]on 78-87-8035LCX (Bld) [#/Vol]3.72 10 6/uLLow4.20-5.40[facility] (d) [#/Vol] Erythrocytes [#/volume] in Blood by Automated countLow4.20-5.40Kn[facility] Community Hospitalerum globulin measurement (mass/volume)on 03-17-2024 Globulin (S) [Mass/Vol]3.7 g/dL2.2-3.9[facility] Medical CenterGlobulin (S) [Mass/Vol]Serum globulin measurement (mass/volume)2.2-3.9[facility] Hospitalerum or plasma albumin/globulin mass ratioon 03-17-2024 Albumin/Globulin [Mass ratio]0.9 {ratio}0.7-1.7FMemorial Health System Albumin/Globulin [Mass ratio]Serum or plasma albumin/globulin mass ratio0.7-1.7 [facility] Hospitalerum or plasma alpha 1 globulin measurement by electrophoresis (mass/volume)on 92-18-4796Xkigu 1 globulin Elph [Mass/Vol]0.3 g/dL0.0-0.4FMemorial Health SystemAlpha 1 globulin Elph [Mass/Vol] Serum or plasma alpha 1 globulin measurement by electrophoresis (mass/volume) 0.0-0.4FCleveland Clinic Akron General Lodi Hospitalerum or plasma alpha 2 globulin measurement by electrophoresis (mass/volume)on 79-14-2472Ckdsc 2 globulin Elph [Mass/Vol]1.3 g/dLAbnormal0.4-1.0[facility] Medical CenterAlpha 2 globulin Elph [Mass/Vol]Serum or plasma alpha 2 globulin measurement by electrophoresis (mass/volume)Abnormal0.4-1.0[facility] Serum or plasma anion gap determinationon 57-06-7252Rcyog gap [Moles/Vol]14.5 mmol/LFMemorial Health SystemAnion gap [Moles/Vol]Serum or plasma anion gap determinationKnox Community Hospitalerum or plasma beta globulin measurement by electrophoresis (mass/volume)on 93-75-9578Lcbw globulin Elph [Mass/Vol]1.0 g/dL0.7-1.3FMemorial Health SystemBeta globulin Elph [Mass/Vol]Serum or plasma beta globulin measurement by electrophoresis (mass/volume)0.7-1.3FCleveland Clinic Akron General Lodi Hospitalerum or plasma gamma globulin measurement by electrophoresis (mass/volume)on 71-18-9071Lzbhk globulin Elph [Mass/Vol]1.1 g/dL0.4-1.8[facility] Medical CenterGamma globulin Elph [Mass/Vol]Serum or plasma gamma globulin measurement by electrophoresis (mass/volume)0.4-1.8[facility] Hospitalerum or plasma immunoelectrophoresis interpretationon 96-34-1162Obkcrypymcgzrg IEP [Interp] Comment:.[facility] Medical CenterComment on above:Presence of monoclonal protein is unclear at this time. Suggestrepeat in 3 to 6 months if clinically indicated.Interpretation IEP [Interp]Serum or plasma immunoelectrophoresis interpretation.[facility] Medical CenterComment on above:Presence of monoclonal protein is unclear at this time. Suggestrepeat in 3 to 6 months if clinically indicated.Coding Queryon [id number] Query Coding Query From: Sagar ROB, Giovana To: KADE MARLOW, Allison; Cc: Tierra Elizalde; Sent: 03/09/2024 10:41:21 EDT ! Subject: Coding Query Due Date/Time: 03/10/2024 10:40:00 EDT Caller Name: LEXI TATUM; Caller Number: , M Documentation in the medical record indicates that this patient has been admitted with or diagnosedas having the following: Sepsis secondary to E. coli urinary tract infection The following is also documented in the medical record: dc summary-Hospital Course 78-year-old female with diabetes mellitus type 2, hypertension, coronaryartery disease, chronic kidney disease stage III, peripheral artery disease, urethral stricture/hydronephrosis status post stent placement presented with complaints of generalized weakness, chills, suprapubic pain. She was subsequently admitted to [facility] with acute metabolic encephalopathy secondary to sepsis secondary to E. coli urinary tract infection, acute kidney injury on chronic kidney disease secondary to ATN from sepsis and UTI, generalized weakness, elevated troponin secondary to type II non-ST segment elevation myocardial infarction and stage 1 coccyx decubitus u lcer. Based on your medical judgment, can you [...] desired or expected. Thank you! Giovana [phone] From: KADE MARLOW, [facility] To: Sagar ROB, Giovana; Sent: 03/09/2024 10:53:27 EDT Subject: RE: Coding Query Caller Name: LEXI TATUM; Caller Number: Giovanni , M E. coli urinary tract infection?secondary to ureteral stent. Present on admission. Thank you.[facility] CenterED Note-Physicianon 22-10-7231CE Note-PhysicianED Note-Physician Basic Information Time Seen: Rudy Gupta [...] or shortness of breath. She does states shehas a cardiac history and follows with [facility] cardiology. She states she has had a stent placed as well as CABG. She states she always has an abnormal EKG. She denies any headache or visualchanges. No nausea or vomiting or diaphoresis. Review [...] 2 diabetes mellitus without complications) 6. Pure hypercholesterolemia (E78.00: Pure hypercholesterolemia, unspecified) 7. Class 3 severe obesity with serious comorbidity in adult (E66.01: Morbid (severe) obesity due toexcess calories) 8. Coronary artery disease (I25.10: Atherosclerotic heart disease of [place] coronary artery withoutangina pectoris) 9. On deep vein thrombosis (DVT) prophylaxis (Z79.899: 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) Orders: Sodium Chloride 0.9% [...] made to ensure accuracy, however, inadvertently computerized christian science healer mistakes may be present. Appropriate healthcare PPE was used in evaluating this patient. Problem List/Past Medical History Ongoing Chronic kidney disease, stage 3 unspecified Class 3 severe obesity with serious comorbidity in adult Diabetic pe (more content not included)...[facility] Comment on above:Result Comment: Electronically Signed By: Rudy Gupta PA-C\.br\Date and Time Signed: 02/25/2419:01 EDT\.br\Electronically Co-Signed By: Baljit Hawkins MD\.br\Date and Time Co-Signed: 03/04/24 22:01 EDTTroponin 1 Hr. on 29-94-9372Pinxbcwc HS70.30 pg/cBSopipzxc95.10-27.10[facility] Hospital [facility] WestComment on above:Order Comment: 1830Result Comment: Critical Result Verified by Previous Result Called to Rudy Patrick RN @1833 02/26/2024 [facility] The 95% CI (Confidence Interval) PPV (Positive Predictive Value) for myocardial infarction in females is 38 pg/mL, in males 51 pg/mL. The results should be used in conjunction with clinical conditions of myocardial infarction. (Access High Sensitivity Troponin I Instructions For Use, [employer], February 2018) Critical Result Verified by Previous Result The 95% CI (Confidence Interval) PPV (Positive Predictive Value) for myocardial infarction in females is 38 pg/mL, in males 51 pg/mL. The results should be used in conjunction with clinical conditions of myocardial infarction. (Access High Sensitivity Troponin I Instructions For Use, DJZ Soraya, February 2018)Performed By: #### [id number] #### [facility] [address] [place] [address]Sxktgim Message Officeon 82-03-9403Rooxgfd Message Office General Message Office --- --- --- --- --- --- --- --- --- From: Scottie NunezInhomero To: LEXI TATUM Sent: 03/01/24 02:30:40 AM EDT Subject: Discharge Summary Ready to View A summary regarding your recent visit is available in the Documents section of your health record.NormalRegency Hospital Cleveland WestC Urineon 34-33-7643Ggzusygu identified Cx Nom (U)Microbiology PROCEDURE: Urine Culture [R1] SOURCE: U CleanCatch [...] or tested, I=Intermediate, ESBL=Extended spectrum beta-lactamase, R=Resistant, TFG=Thymidine-dependent strain, EVERETT=Beta-lactamase positive, JOHAN=mcg/m;(mg/L), S*=Predicted susceptible interp, [...] Locations R1: This test was performed at: [facility], [address] [place] [address], [address]- , , HummueQcusjeAultman Alliance Community HospitalComment on above:Performed By: #### [id number] #### [facility] [address] [place] [address] 56999YCUIWNGZRChehtcc By: Elie Robles on 03-95-6979Skrzacg [Mass/Vol]137 mg/pLQdxr47 - 99 mg/dLPUSHMATAHA HOSPITAL – ANTLERS POC SubsectionComment on above:Result Comment: Notified RN/MDPOC Device [id number] 1Invalid Interpretation Code [facility] POC SubsectionPOC User [id number] 1Invalid Interpretation CodeFTMC POC SubsectionPOC UsernameDENDINGER, MAKENNAInvalid Interpretation CodeFT[facility] POC SubsectionGlucose [Mass/Vol]130 mg/yXIbzg16 - 99 mg/dLPUSHMATAHA HOSPITAL – ANTLERS POC SubsectionComment on above:Result Comment: Notified RN/MDPOC Device [id number] 1Invalid Interpretation CodeFT[facility] POC SubsectionPOC User [id number] 1Invalid Interpretation CodeFT[facility] POC SubsectionPOC UsernameDENDINGER, MAKENNAInvalid Interpretation CodeFT POC SubsectionCapillary Glucose POCon 58-56-5873Hznggcz [Mass/Vol]137 mg/xMRpcd48-31GfbvrhRegency Hospital Cleveland WestComment on above:Result Comment: Notified RN/MDPerformed By: #### [id number] #### [facility] [address] [place] [address] 75[address]Bxlpakk [Mass/Vol]130 mg/zAAyyd91-53MpgwzhRegency Hospital Cleveland West Comment on above:Result Comment: Notified RN/MDPerformed By: #### [id number] #### [facility] [address] [place] [address] 867[address]Gwwmqztxd Note-Nursingon 87-68-2520Xtjsetzai Note-Nursing Discharge Note-Nursing LEXI TATUM :1945 Visit Date:02/26/2024 Inpatient Discharge Instructions Your Care Team Admitting Physician - Allison CHANCE MD Reason for Your Visit Fatigue Your Diagnosis Acute metabolic encephalopathy Sepsis Urinary tract infection Acute kidney injury Elevated troponin Hypoglycemia Generalized weakness Decubitus ulcer of coccygeal region, stage 1 Diabetes CKD stage 3b, 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 Pure hypercholesterolemia Class 3 severe obesity with serious comorbidity [...] BEST When: 03/05/2024 01:45 PM EDT Where: [address] [place] [id number] Business (1) Medications What How Much When Why Instructions Next Dose New cephalexin (Keflex 500 mg Cap) 1 Capsules By Mouth 3 times a day Urinary tract infection Duration: 4 Days Pickup at [facility]5 03/01/2024 @ 9:00 AM Unchanged acetaminophen [...] Pure hypercholesterolemia Vitamin D deficiency Urinary incontinence 03/01/2024 @ 9:00 AM Unchanged potassium chloride (potassium chloride 10 mEq ER Tab) 1 Tablets By Mouth Every day Oral 03/01/2024 @ 9:00 AM Unchanged rosuvastatin (rosuvastatin 5 mg Tab) 1 Tablets By Mouth Every day 03/01/2024 @ 9:00 AM Pharmacy Information [facility]: [address] [facility] (more content not included)...NormalRegency Hospital Cleveland WestHgbA1con 39-07-9119PoX7v (Bld) [Mass fraction]7.4 %High<=5.9[facility] Hospital Cleveland WestComment on above: Performed By: #### [id number] #### [facility] [address] [place] [address] 68692Aivejfydn Clinical Summaryon 64-03-8237Wluppkbpo Clinical SummaryInpatient Clinical Summary [address] [address] Clinical Summary Person Information: Name: LEXI TATUM Age: 78 Years : 1945 Sex: Female PCP: STEFAN BEST MD Marital Status: Race: White Ethnicity: Non- or Language: Swedish Visit Id: Visit Reason: Chest pain; ALOC Speciality: Acuity: Enc Type: Inpatient Med Service: Medical Arrival: 02/26/2024 17:28:58 Discharge: Dispo Type: Admitted as IP to this Hosp Address: [address] [place] [id number] Provider Notes: Diagnosis: 1:Acute metabolic encephalopathy; 2:Sepsis; 3:Urinary tract infection; 4:Acute kidney injury; 5:Elevated troponin; 6:Hypoglycemia; 7:Generalized weakness; 8:Decubitus ulcer of coccygeal region, stage1; 9:Diabetes; 10:CKD stage 3b, 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; 11:Pure hypercholesterolemia; 12:Class 3 severe obesity with serious comorbidity in adult; 13:Coronary artery disease; 14:On deep vein thrombosis (DVT) prophylaxis Problems Active 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 Oral.Refills: 1. clopidogrel (Plavix 75 mg Tab) 1 [...] Follow up: With: Address: When: STEFAN BEST [address] [place] [address] [facility] (1) 03/05/2024 1:45 PM Patient Education Information:[facility] HospitalInpatient Patient Summaryon 12-62-1952Kmomvmyeg Patient SummaryInpatient Patient Summary [place] [address] Patient Discharge Instructions PERSON INFORMATION Name: LEXI TATUM Date of : 1945 Current Date: 02/29/2024 13:38:50 PHYSICIANS Admitting Physician: Allison CHANCE MD Primary Care Physician: STEFAN BEST MD Comment: Discharge Diagnosis: 1:Acute metabolic encephalopathy; 2:Sepsis; 3:Urinary tract infection; 4:Acutekidney injury; 5:Elevated troponin; 6:Hypoglycemia; 7:Generalized weakness; 8:Decubitus ulcer of coccygeal region, stage 1; 9:Diabetes; 10:CKD stage 3b, 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; 11:Pure hypercholesterolemia; 12:Class 3 severe obesity with serious comorbidity in adult; 13:Coronary artery disease; 14:On deep vein thrombosis (DVT) prophylaxis Condition at Discharge: Improved LUCRECIALEXI RAMÍREZ has been given the following list of [...] With: Address: When: STEFAN SAGE [address] [place] [address] Business (03/05/2024 1:45 PM In the event that this physician does not participate in your insurance network, please consult with your insurance company to find a nearby participating provider. Comment: RC Mitchell SANDRA L, have received the attached patient education materials/instructions and haveverbalized understanding: Patient Signature Date Clinican/Nurse Signature Date HERE ARE THE MEDICATION CHANGES THAT OCCURRED DURING YOUR HOSPITAL STAY New Medications [facility], [address] [facility] [place] [id number], [phone] cephalexin (Keflex 500 mg Cap) 1 Capsules [...] capsule) 1 Capsules By Mouth every day. Oral.Refills: 1. Last Dose: Next Dose: clopidogrel (Plavix [...] Strips Check AC&HS. Refills (more content not included)...NormalRegency Hospital Cleveland WestBMPon 28-53-6210Geuvf gap [Moles/Vol]12 mmol/LNormal6-16[facility] WestComment on above:Performed By: #### [id number] #### Tan [facility] [address] [place], [place] [address]Tkgyqlq [Mass/Vol]8.8 mg/dLLow8.9-11.1FMercy Health St. Charles HospitalComment on above:Performed By: #### [id number] #### Tan [facility] [address] [place], [place] [address]Uwowsthw [Moles/Vol]104 mmol/ZXnyfkw075-321ExvrioRegency Hospital Cleveland WestComment on above:Performed By: #### [id number] #### [facility] [address] [place], [place] [address]YO2 [Moles/Vol]25 mmol/NYhlpjv58-76YwreceRegency Hospital Cleveland West Comment on above:Performed By: #### [id number] #### [facility] [address] [place], [place] [address]Feaxmyxuix [Mass/Vol]1.5 mg/dLHigh0.5-1.3FMercy Health St. Charles HospitalComment on above:Performed By: #### [id number] #### [facility] [address] [place], [place] [address]Dtydmri [Mass/Vol]53 mg/cYDru46-265VmxmxeRegency Hospital Cleveland West Comment on above:Performed By: #### [id number] #### [facility] [address] [place], [place] [address]Pldwzeaqr [Moles/Vol]4.5 mmol/LNormal3.5-5.3FMercy Health St. Charles HospitalComment on above:Performed By: #### [id number] #### [facility] [address] [place], [place] [address]Smyocb [Moles/Vol]136 mmol/NGevnyw027-215RorelnRegency Hospital Cleveland WestComment on above:Performed By: #### [id number] #### [facility] [address] [place], [place] [address]Nyyt nitrogen [Mass/Vol]36 mg/dLHigh5-21[facility] Cleveland WestComment on above:Performed By: #### [id number] #### Dominick [facility] [address] [place], [place] [address]Jsst nitrogen/Creatinine [Mass ratio]24 No KsyblTcfy87-57ObdzuxRegency Hospital Cleveland WestComment on above:Performed By: #### [id number] #### Dominick [facility] [address] [place], [place] [address]GQPTBJLJPZqedwmw By: Lab Carmenr on 00-16-9655Zjayklg [Mass/Vol]132 mg/rVKgpd02 - 99 mg/dLPUSHMATAHA HOSPITAL – ANTLERS POC SubsectionComment on above:Result Comment: Notified RN/PRIYANKAOC Device [id number] 1Invalid Interpretation Code [facility] POC SubsectionPOC User [id number] 1Invalid Interpretation CodePUSHMATAHA HOSPITAL – ANTLERS POC SubsectionPOC UsernameLEIBAANTONELLA GARCIAInvalid Interpretation CodePUSHMATAHA HOSPITAL – ANTLERS POC SubsectionCHEMISTRYOrdered By: SYSTEM SYSTEM on 97-10-2675Qcmfm gap [Moles/Vol] 12 mmol/LNormal6 - 16 mEq/LRemisol ChemCalcium [Mass/Vol]8.8 mg/dLLow8.9 - 11.1 mg/dLRemisol ChemChloride [Moles/Vol]104 mmol/UZvtrcm878 - 111 mmol/LRemisol ChemCO2 [Moles/Vol]25 mmol/ZGhehyr79 - 31 mmol/LRemisol ChemCreatinine [Mass/Vol]1.5 mg/dLHigh0.5 - 1.3 mg/dLRemisol KnoidHQS96 mL/min/1.73 m2Low >=59mL/min/1.73 s1Qrnpnbi ChemGlucose [Mass/Vol]53 mg/dLLow55 - 199 mg/dLRemisol ChemPotassium [Moles/Vol]4.5 mmol/LNormal3.5 - 5.3 mmol/LRemisol ChemSodium [Moles/Vol]136 mmol/HSwgofd952 - 145 mmol/LRemisol ChemUrea nitrogen [Mass/Vol] 36 mg/dLHigh5 - 21 mg/dLRemisol ChemUrea nitrogen/Creatinine [Mass ratio]24 mg/hnVfvr20 - 20Remisol ChemCapillary Glucose POCon 67-23-5447Stywqgo [Mass/Vol] 132 mg/eMDmsg26-16TzxbswRegency Hospital Cleveland WestComment on above:Result Comment: Notified RN/MDPerformed By: #### [id number] #### [facility] [address] [place], [place] [address]Dafxwbl [Mass/Vol]118 mg/tFBgxg30-33WxxrymRegency Hospital Cleveland West Comment on above:Result Comment: Notified RN/MDPerformed By: #### [id number] #### [facility] [address] [place], [place] [address]Gaqttvp [Mass/Vol]229 mg/oFElqb11-43IvjdjpRegency Hospital Cleveland West Comment on above:Result Comment: Notified RN/MDPerformed By: #### [id number] #### [facility] [address] [place] [address]Qqhqxwd [Mass/Vol]229 mg/oLMzex68-97JghfmlRegency Hospital Cleveland West Comment on above:Performed By: #### [id number] #### [facility] [address] [place], [place] [address]Gimskdm [Mass/Vol]56 mg/pESvjkjz54-63VmcxhyRegency Hospital Cleveland WestComment on above:Result Comment: Notified RN/MDPerformed By: #### [id number] #### [facility] [address] [place], [place] [address]Sltwb Leonard 78-40-2581QP Tube CollectedYesInvalid Interpretation CodeRegency Hospital Cleveland WestComment on above:Performed By: #### [id number] #### [facility] [address] [place], [place] [address]yBISuh 53-80-2640kXDS02 mL/min/1.73 m2Low>=59Reg[facility] Hospital Cleveland WestComment on above:Order Comment: Order added by Discern Expert. Performed By: #### [id number] #### [facility] [address] [place], [place] [address]EOYtr 11-71-0972Tzwzg gap [Moles/Vol]12 mmol/LNormal6-16[facility] Cleveland WestComment on above:Performed By: #### [id number] #### Tan [facility] [address] [place], [place] [address]Ocvccyx [Mass/Vol]8.4 mg/dLLow8.9-11.1FMercy Health St. Charles HospitalComment on above:Performed By: #### [id number] #### Tan [facility] [address] [place], [place] [address]Nhefpkuw [Moles/Vol]104 mmol/ADxixje260-194QsilmnRegency Hospital Cleveland WestComment on above:Performed By: #### [id number] #### [facility] [address] [place], [place] [address]VE7 [Moles/Vol]25 mmol/MYbvezg79-15XoimvcRegency Hospital Cleveland West Comment on above:Performed By: #### [id number] #### [facility] [address] [place], [place] [address]Idohjxeply [Mass/Vol]1.6 mg/dLHigh0.5-1.3FMercy Health St. Charles HospitalComment on above:Performed By: #### [id number] #### [facility] [address] [place], [place] [address]Cajcgvk [Mass/Vol]182 mg/sUKyluzu50-649MhbcioRegency Hospital Cleveland WestComment on above:Performed By: #### [id number] #### [facility] [address] [place], [place] [address]Ssoojbifu [Moles/Vol]4.6 mmol/LNormal3.5-5.3FMercy Health St. Charles HospitalComment on above:Performed By: #### [id number] #### Tan [facility] [address] [place], [place] [address]Kyfcku [Moles/Vol]136 mmol/RAjkpux145-225XokiuyRegency Hospital Cleveland WestComment on above:Performed By: #### [id number] #### Tan [facility] [address] [place], [place] [address]Uxoo nitrogen [Mass/Vol]40 mg/dLHigh5-21[facility] Cleveland WestComment on above:Performed By: #### [id number] #### [facility] [address] [place] [address]Svee nitrogen/Creatinine [Mass ratio]25 No MvmroZiiw35-00HybxdpRegency Hospital Cleveland WestComment on above:Performed By: #### [id number] #### [facility] [address] [place] [address]EMK w/ Auto Diffon 74-38-9960Jygdxmvbi/100 WBC (Bld)0.3 %Normal 0.0-2.0Reg[facility] Cleveland WestComment on above:Performed By: #### [id number] #### [facility] [address] [place] [address]Xwpctgfnb/Leukocytes Auto (Bld) [Pure # fraction]0.0 E9/LNormal 0.0-0.2FMercy Health St. Charles HospitalComment on above:Performed By: #### [id number] #### [facility] [address] [place] [address]Kaqsywyxhko (Bld) [#/Vol]0.0 E9/LNormal0.0-0.5FMercy Health St. Charles HospitalComment on above:Performed By: #### [id number] #### [facility] [address] [place] [address]Xseaeobqezf/100 WBC (Bld)0.3 %Normal0.0-8.0[facility] Cleveland WestComment on above:Performed By: #### [id number] #### [facility] [address] [place] [address]Hniewonyjuo distribution width (RBC) [Ratio]16.2 %High10.9-14.2 [facility] Cleveland WestComment on above:Performed By: #### [id number] #### [facility] [address] [place] [address]Bupidswpgx (Bld) [Volume fraction]34.2 %Trqcxd06.0-46.0[facility] Cleveland WestComment on above:Performed By: #### [id number] #### [facility] [address] [place], [place] [address]Esggyedsrt (Bld) [Mass/Vol]11.0 g/dLLow12.0-16.0[facility] Cleveland WestComment on above:Performed By: #### [id number] #### [facility] [address] [place] [address]Autuiyicxps (Bld) [#/Vol]0.8 E9/LLow1.0-4.0[facility] Cleveland WestComment on above:Performed By: #### [id number] #### [facility] [address] [place] [address]Wxxnuxfdjru/100 WBC (Bld)8.7 %Low14.0-50.0[facility] Cleveland WestComment on above:Performed By: #### [id number] #### [facility] [address] [place] [address]MPQ (RBC) [Entitic mass]32.0 yoAuscpu30.0-34.0[facility] Cleveland WestComment on above:Performed By: #### [id number] #### [facility] [address] [place] [address]XCUQ (RBC) [Mass/Vol]32.2 g/jTKfkrgk61.4-36.0[facility] Cleveland WestComment on above:Performed By: #### [id number] #### [facility] [address] [place] [address]SMM (RBC) [Entitic vol]99.4 lDCuebhw25.0-100.0[facility] WestComment on above:Performed By: #### [id number] #### [facility] [address] [place] [address]Wuyijsinc (Bld) [#/Vol]0.7 E9/LNormal0.2-1.0[facility] WestComment on above:Performed By: #### [id number] #### [facility] [address] [place] [address]Cmzoajksxaw (Bld) [#/Vol]7.9 E9/LHigh2.0-7.5FMercy Health St. Charles HospitalComment on above:Performed By: #### [id number] #### [facility] [address] [place], [place] [address]Jqjrcliluyi/100 WBC (Bld)83.7 %High36.0-75.0[facility] Cleveland WestComment on above:Performed By: #### [id number] #### [facility] [address] [place], [place] [address]Jjngbfdo mean volume (Bld) [Entitic vol]9.0 fLNormal6.4-10.8 [facility] WestComment on above:Performed By: #### [id number] #### [facility] [address] [place] [address]Xtqjodrhu (Bld) [#/Vol]215.0 E9/VDluwnc544.0-500.0[facility] WestComment on above:Performed By: #### [id number] #### [facility] [address] [place] [address]CJX (Bld) [#/Vol]3.4 E12/LLow4.3-5.9[facility] Comment on above:Performed By: #### [id number] #### [facility] [address] [place] [address]FXO corrected for nucl RBC Auto (Bld) [#/Vol]9.5 E9/LNormal 4.0-11.0[facility] WestComment on above:Performed By: #### [id number] #### [facility] [address] [place] [address]TCXUTOCSXKxcnswe By: SYSTEM SYSTEM on 38-51-6353Tduag gap [Moles/Vol]12 mmol/LNormal6 - 16 mEq/LRemisol ChemCalcium [Mass/Vol]8.4 mg/dLLow 8.9 - 11.1 mg/dLRemisol ChemChloride [Moles/Vol]104 mmol/DTilurm762 - 111 mmol/L Remisol ChemCO2 [Moles/Vol]25 mmol/OItfehh93 - 31 mmol/LRemisol ChemCreatinine [Mass/Vol]1.6 mg/dLHigh0.5 - 1.3 mg/dLRemisol PnpfdVIY39 mL/min/1.73 m2Low >=59mL/min/1.73 w7Phbvcmp ChemGlucose [Mass/Vol]182 mg/wNCvxvil48 - 199 mg/dL Remisol ChemPotassium [Moles/Vol]4.6 mmol/LNormal3.5 - 5.3 mmol/LRemisol Chem Sodium [Moles/Vol]136 mmol/AAqzlml958 - 145 mmol/LRemisol ChemUrea nitrogen [Mass/Vol]40 mg/dLHigh5 - 21 mg/dLRemisol ChemUrea nitrogen/Creatinine [Mass ratio]25 mg/jqFmwx92 - 20Remisol ChemLactic Acid Lvl1.4 mmol/LNormal0.5 - 2.2 mmol/LRemisol ChemTroponin HS38.90 pg/mLInvalid Interpretation Code10.10 - 27.10 pg/mLRemisol ChemComment on above:Result Comment: Critical Result Verified by Previous Result Critical Result I_TnIHS:38.9 Called to and read back by: MARY ROB at: 02/27/2024 01:16:08 by:BCSInterpretive Data: The 95% CI (Confidence Interval) PPV (Positive Predictive Value) for myocardial infarction in females is 38 pg/mL, in males 51 pg/mL. The results should be used in conjunction withclinical conditions of myocardial infarction. (Access High Sensitivity Troponin I Instructions For Use, [employer] [place], February 2018)CHEMISTRYOrdered By: Betsey Heart on 46-68-9775QiA9c (Bld) [Mass fraction]7.4 %High<=5.9%[facility] ChemAutoSSCT Head or Brain w/o Contraston 73-30-9146PI Head or Brain w/o ContrastExam Date/Time: 02/26/2024 18:49 EDT Reason for Exam: [...] Oscar Brady MD Transcribed by: NIKKI Technologist: ArmandoRegency Hospital Cleveland WestCapillary Glucose POCon 11-78-0391Ehlcmqe [Mass/Vol]181 mg/iFPawy13-65Lbznwb93 Taylor StreetComment on above:Result Comment: Notified RN/MDPerformed By: #### [id number] #### [facility] [address] [place], [place] [address]Bssggrq [Mass/Vol]153 mg/tEUrfx52-71Nbmfos[address] Comment on above:Performed By: #### [id number] #### [facility] [address] [place], [place] [address]Uuvmdcl [Mass/Vol]147 mg/zVIzme52-70Qpludr[address] Comment on above:Result Comment: Notified RN/MDPerformed By: #### [id number] #### [facility] [address] [place], [place] [address]Vfzlrzf [Mass/Vol]159 mg/wBKvcv18-98Whilzs[address] Comment on above:Performed By: #### [id number] #### [facility] [address] [facility], [place] [address]Dwheul Queryon 78-73-7214Ihbwim QueryCoding Query From: Deana Puckett RN To: Allison CHANCE [...] is desired or expected. Thank you!deana [id number] From: Allison CHANCE MD To: Deana Puckett RN; Sent: 02/27/2024 08:39:01 EDT Subject: RE: Coding Query Caller Name: LEXI TATUM; Caller Number: H , M Thank you.[facility] HospitalCoding QueryCoding Query From: Deana Puckett RN To: Allison CHANCE [...] 1 [place] normal Sepsis standardized definition: General Indicators-temp<38.3, HR/RR WNL, no AMS (H&P) +inflammatory criteria [...] is desired or expected. Thank you!deana [id number] From: Allison CHANCE MD To: Deana Puckett RN; Sent: 02/27/2024 08:38:27 EDT Subject: RE: Coding Query Caller Name: LEXI TATUM; Caller Number: Giovanni , M No Sepsis- POA; Had AMS alsoAshtabula General HospitalCoding QueryCoding Query From: Deana Puckett RN To: Allison CHANCE [...] answer is desired or expected. Thank you!deana [id number] Hospital Cleveland WestCoding QueryCoding Query From: Deana Puckett RN To: KADE MARLOW, Brennen; Sent: 02/27/2024 07:12:49 EDT ! Subject: Coding [...] 1 LA normal Sepsis standardized definition: General Indicators-temp<38.3, HR/RR WNL, no AMS (H&P) +inflammatory criteria [...] answer is desired or expected. Thank you!deana [id number] [facility] HospitalHEMATOLOGYOrdered By: SYSTEM SYSTEM on 46-59-5698Szuayvpyl/100 WBC (Bld) 0.3 %Normal0.0 - 2.0 %Remisol HemeBasophils/Leukocytes Auto (Bld) [Pure # fraction]0.0 E9/LNormal0.0 - 0.2 E9/LRemisol HemeEosinophils (Bld) [#/Vol]0.0 E9/LNormal0.0 - 0.5 E9/LRemisol HemeEosinophils/100 WBC (Bld)0.3 %Normal0.0 - 8.0 %Remisol HemeErythrocyte distribution width (RBC) [Ratio]16.2 %High10.9 - 14.2 %Remisol HemeHematocrit (Bld) [Volume fraction]34.2 %Swpivj18.0 - 46.0 % Remisol HemeHemoglobin (Bld) [Mass/Vol]11.0 g/dLLow12.0 - 16.0 gm/dLRemisol Heme Lymphocytes (Bld) [#/Vol]0.8 E9/LLow1.0 - 4.0 E9/LRemisol HemeLymphocytes/100 WBC (Bld)8.7 %Low14.0 - 50.0 %Remisol HemeMCH (RBC) [Entitic mass]32.0 pgNormal 27.0 - 34.0 pgRemisol HemeMCHC (RBC) [Mass/Vol]32.2 g/fUFarkba96.4 - 36.0 gm/dL Remisol HemeMCV (RBC) [Entitic vol]99.4 aSBduqtd07.0 - 100.0 fLRemisol Heme Monocytes (Bld) [#/Vol]0.7 E9/LNormal0.2 - 1.0 E9/LRemisol HemeMonocytes/100 WBC (Bld)7.0 %Normal4.0 - 14.0 %Remisol HemeNeutrophils (Bld) [#/Vol]7.9 E9/LHigh 2.0 - 7.5 E9/LRemisol HemeNeutrophils/100 WBC (Bld)83.7 %High36.0 - 75.0 % Remisol HemePlatelet mean volume (Bld) [Entitic vol]9.0 fLNormal6.4 - 10.8 fL Remisol HemePlatelets (Bld) [#/Vol]215.0 E9/EKkifks456.0 - 500.0 E9/LRemisol HemeRBC (Bld) [#/Vol]3.4 E12/LLow4.3 - 5.9 E12/LRemisol HemeWBC corrected for nucl RBC Auto (Bld) [#/Vol]9.5 E9/LNormal4.0 - 11.0 E9/LRemisol HemeInpatient Clinical Summaryon [id number] Clinical SummaryInpatient Clinical Summary [place] [address] Clinical Summary Person Information: Name: LEXI TATUM Age: 78 Years : 1945 Sex: Female PCP: STEFAN BEST MD Marital Status: Race: White Ethnicity: Non- or Language: Swedish Visit Id: Visit Reason: Chest pain; ALOC Speciality: Acuity: Enc Type: Inpatient Med Service: Medical Arrival: 02/26/2024 17:28:58 Discharge: Dispo Type: Admitted as IP to this Hosp Address: [address] [place] [id number] Provider Notes: Diagnosis: 1:Acute metabolic encephalopathy; 2:Sepsis; 3:Urinary tract infection; 4:Acute kidney injury; 5:Elevated troponin; 6:Generalized weakness; 7:Decubitus ulcer of coccygeal region, stage 1; 8:Diabetes; 9:CKD stage 3b, 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; 10:Pure hypercholesterolemia; 11:Class 3 severe obesity with serious comorbidity in adult; 12:Coronary artery disease; 13:On deep vein thrombosis (DVT) prophylaxis Problems Active 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 Oral.Refills: 1. clopidogrel (Plavix 75 mg Tab) 1 [...] Follow up: With: Address: When: STEFAN BEST [address] [place], [place] [id number] Business (1) Patient Education Information:[facility] HospitalInpatient Patient Summaryon [id number] Patient SummaryInpatient Patient Summary [address] [address] Patient Discharge Instructions PERSON INFORMATION Name: LEXI TATUM Date of : 1945 Current Date: 02/27/2024 11:06:16 PHYSICIANS Admitting Physician: Allison CHANCE MD Primary Care Physician: STEFAN BEST MD Comment: Discharge Diagnosis: 1:Acute metabolic encephalopathy; 2:Sepsis; 3:Urinary tract infection; 4:Acutekidney injury; 5:Elevated troponin; 6:Generalized weakness; 7:Decubitus ulcer of coccygeal region, stage 1; 8:Diabetes; 9:CKD stage 3b, 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; 10:Pure hypercholesterolemia; 11:Class 3 severe obesity with serious comorbidity in adult; 12:Coronary artery disease; 13:On deep vein thrombosis(DVT) prophylaxis Condition at Discharge: LEXI TATUM has [...] Follow up: With: Address: When: STEFAN BEST [facility] [place] [id number] Business (1) In the event that this physician does not participate in your insurance network, please consult with your insurance company to find a nearby participating provider. Comment: RC Mitchell SANDRA L, have received the attached patient education materials/instructions and haveverbalized understanding: Patient Signature Date Clinican/Nurse Signature Date [...] capsule) 1 Capsules By Mouth every day. Oral.Refills: 1. Last Dose: Next Dose: clopidogrel (Plavix [...] Dose: Next Dose: rosuvasta (more content not included)...[facility] Interdisciplinary Note - Case Manageron 35-67-5473Vmjakobwunlvuiane Note - Case ManagerInterdisciplinary Note - Railroad Track Repair Supervisor CRM to room to discuss DC planning. Patient is awake, alert and oriented. Patient is from home withher spouse. Him or family can transport at [...] is 1. [facility]. Patient would need a 3M stay and per Dr Chance will be here a few days at least. Patient has walker, Raised Toilet, SC and grab bars at home. Patient has been off and on oxygen NC here. It is off now. She does not have any at home. Patient was provided CRM contact, white board updated. CRM following [facility] accepts on [facility] side with semi private room, has to have 3 M stay and could DC 02/28 [facility] accepted if that is plan at DC Patient does not want a shared room and said she will just [facility] HospitalComment on above:Result Comment: Electronically Signed By: Stacie Watts\.br\Date and Time Signed: 02/27/24 15:22 EDT Interdisciplinary Note - OTon 61-70-0171Znqgkspyjwovlszvn Note - OT Interdisciplinary Note - OT OT AM-PAC 6 CLICKS SCORE =SNF vs. HH services. Main barriers towards Pt's safe and functional performance are generalized weakness and unsteadiness. Pt completes ADL functional transfers CGA andrequires min A for lower body self care tasks due to unsteadiness at time of eval. SNF vs HH recommended at this time pending Pt's progress and family support/assist at home for safety. OT to follow Friday-Friday, progressing as tolerates.[facility]Reg[facility] Interdisciplinary Note - PTon 50-26-0102Qrdqhnzavrcpkxtym Note - PT Interdisciplinary Note - PT Initial PT eval completed. 6 Clicks AM-PAC . Recommend SNF vs HH PT. FAmily concern with safety at home alone when they are working. Spouse also to have TKA next week. Pt would benefit from strengthening prior to pending LIVIER. Will see daily.[facility]ula [facility] HospitalInterdisciplinary Note - Social Workeron 29-76-6154Ajjgnkeqbofjwguxs Note - Social WorkerInterdisciplinary Note - Packaging Manager There was a system generated request for [...] a SW if there are any further questions.[facility]ula [facility] HospitalLactic Acidon 02-27-2024 Lactic Acid Lvl1.4 mmol/LNormal0.5-2.2FMercy Health St. Charles HospitalComment on above:Performed By: #### [id number] #### Dominick [facility] [address], [place] [address]CLLLYYANFA:SUSC:PT:ISOLATE:ORDQN:MICOrdered By: Elisa Love on 68-47-6033Kmxtyurvza JOHAN [Susc]20,000 cfu/ml Escherichia coliMercy Health Clermont HospitalTobramycin JOHAN [Susc]Ordered By: Elisa Love on 02-27-2024 Escherichia coliEscherichia coliMercy Health Clermont HospitalTroponin 6 Hr.on 69-44-8670Gsiyljgu HS38.90 pg/aOKbaclrkp41.10-27.10[facility] Comment on above:Result Comment: Critical Result Verified by Previous Result Critical Result I_TnIHS:38.9 Called to and read back by: MARY ROB at: 02/27/2024 01:16:08 by:MAICOL The 95% CI (Confidence Interval) PPV (Positive Predictive Value) for myocardial infarction in females is 38 pg/mL, in males 51 pg/mL. The results should be used in conjunction with clinical conditions of myocardial infarction. (Access High Sensitivity Troponin I Instructions For Use, Yazmin [place], February 2018)Performed By: #### [id number] #### Dominick [facility] [address], [place] [address]OL with Cult Rflxon 74-77-2397Wtcsomaps Ql (U)duplInvalid Interpretation [facility] HospitalComment on above:Performed By: #### [id number] #### [facility] [address], [place] [address]Knrwbwa (U)duplInvalid Interpretation [facility] HospitalComment on above:Performed By: #### [id number] #### [facility] [address], [place] [address]Njisc (U)duplInvalid Interpretation [facility] HospitalComment on above:Result Comment: duplicate order/credited 02/27/2024 08:19 CSS Microscopic readings are only performed on those samples that meet specific criteria set forth by [facility].Performed By: #### [id number] #### [facility] [address], [place] [address]Jugsacw Ql (U)duplInvalid Interpretation [facility] HospitalComment on above:Performed By: #### [id number] #### [facility] [address], [place] [address]Hobmmunivw Auto test strip (U) [Mass/Vol]duplInvalid Interpretation [facility] HospitalComment on above:Performed By: #### [id number] #### [facility] [address], [place] [address]Udajrax Auto test strip Ql (U)duplInvalid Interpretation Code [facility] WestComment on above:Performed By: #### [id number] #### [facility] [address], [place] [address]Xxodismbz esterase Auto test strip Ql (U)duplInvalid Interpretation [facility] HospitalComment on above:Performed By: #### [id number] #### [facility] [address], [place] [address]Qsyclvb Auto test strip Ql (U)duplInvalid Interpretation Code [facility] WestComment on above:Performed By: #### [id number] #### [facility] [address], [place] [address]xP (U)duplInvalid Interpretation Code5.0-9.0[facility] Cleveland WestComment on above:Performed By: #### [id number] #### [facility] [address], [place] [address]Cxtazga Ql (U)duplInvalid Interpretation CodeRegency Hospital Cleveland WestComment on above:Performed By: #### [id number] #### [facility] [address], [place] [address]Ygmxcbla gravity (U) [Rel density]duplInvalid Interpretation Code1.005-1.030[facility] WestComment on above:Performed By: #### [id number] #### [facility] [address] [place] [address]Zriksueqigpy (U) [Mass/Vol]duplInvalid Interpretation Code [facility] WestComment on above:Performed By: #### [id number] #### [facility] [address] [place] [address]Wimfloee Auto Ql (U)1+ /HPFAbnormalTraceRegency Hospital Cleveland WestComment on above:Performed By: #### [id number] #### [facility] [address] [place] [address]Ncqpgtzci Ql (U)NegativeNormalNegativeRegency Hospital Cleveland WestComment on above:Performed By: #### [id number] #### [facility] [address], [place] [address]Lwtgawn (U)TurbidAbnormalCleOhioHealth Mansfield Hospital Comment on above:Performed By: #### [id number] #### [facility] [address] [place] [address]Tuolt (U)Light-OrangeAbnormalYellowRegency Hospital Cleveland West Comment on above:Result Comment: Microscopic readings are only performed on those samples that meet specific criteria set forth by [facility].Performed By: #### [id number] #### [facility] [address], [place] [address]Vjdqtrkzgi cells.squamous Auto (Urine sed) [#/Area]0-2Invalid Interpretation CodeRegency Hospital Cleveland WestComment on above:Performed By: #### [id number] #### [facility] [address] [place] [address]Zhqofei Ql (U)NegativeNormalCleveland Clinic Foundation Comment on above:Performed By: #### [id number] #### [facility] [address], [place] [address]Synyjnyelb Auto test strip (U) [Mass/Vol]3+ mg/dLAbnormal [facility] FoundationComment on above:Performed By: #### [id number] #### [facility] [address] [place] [address]Dmffnrj Auto test strip Ql (U)NegativeNormalCleveland Clinic FoundationComment on above:Performed By: #### [id number] #### [facility] [address] [place] [address]Rdgwbrjlk clumps Auto (Urine sed) [#/Area]11-20AbnoAultman Alliance Community HospitalComment on above:Performed By: #### [id number] #### [facility] [address] [place] [address]Spcxovbpn esterase Auto test strip Ql (U)500 [place]/uLAbnormal [facility] FoundationComment on above:Performed By: #### [id number] #### [facility] [address], [place] [address]Bfoke Auto Ql (U)TraceNormalCleveland Clinic Foundation Comment on above:Performed By: #### [id number] #### [facility] [address], [place] [address]Rymxhsg Auto test strip Ql (U)1+ mg/dLAbnormalCleveland Clinic FoundationComment on above:Performed By: #### [id number] #### Tan [facility] [address] [place] [address]nN (U)7.0 [pH]Invalid Interpretation Code5.0-9.0[facility] Cleveland WestComment on above:Performed By: #### [id number] #### [facility] [address] [place] [address]Ijurrdz Ql (U)2+ mg/dLAbnormalNegativeRegency Hospital Cleveland WestComment on above:Performed By: #### [id number] #### [facility] [address] [place] [address]BIJ Ql (U)78-79Qdndbxts2-1RypywcMercy Health St. Charles HospitalComment on above:Performed By: #### [id number] #### [facility] [address] [place] [address]Kepeysco gravity (U) [Rel density]1.011Invalid Interpretation Code1.005-1.030[facility] Cleveland WestComment on above:Performed By: #### [id number] #### [facility] [address] [place] [address]Ivbyiltvuzrw (U) [Mass/Vol]NegativeNormalNegativeRegency Hospital Cleveland WestComment on above:Performed By: #### [id number] #### [facility] [address] [place] [address]AYL Auto (Urine sed) [#/Area]>86Jvqrmeac0-8GtisxiMercy Health St. Charles HospitalComment on above:Performed By: #### [id number] #### [facility] [address] [place] [address]MTJDAIOUXJPoplugb By: SYSTEM SYSTEM on 13-66-6532Bppfwrsl Auto Ql (U)1+ /HPFInvalid Interpretation CodeTrace/HPFFT UA Auto SSBilirubin Ql (U) NegativeNormalNegativemg/dLFT UA Auto SSClarity (U)Turbid *ABN* (02/27/24 3:19 AM)Invalid Interpretation CodeClearFTMC UA Auto SSColor (U)Light- [place] 3 *ABN* (02/27/24 3:19 AM)Invalid Interpretation CodeYellowFT UA Auto SSComment on above:Interpretive Data: Microscopic readings are only performed on those samples that meet specific criteria set forth by [facility].Epithelial cells.squamous Auto (Urine sed) [#/Area]0-2 graded/HPF Invalid Interpretation CodePUSHMATAHA HOSPITAL – ANTLERS UA Auto SSGlucose Ql (U)NegativeNormal Negativemg/dLPUSHMATAHA HOSPITAL – ANTLERS UA Auto SSHemoglobin Auto test strip (U) [Mass/Vol]3+ mg/dL Invalid Interpretation CodeNegativemg/dLFT UA Auto SSKetones Auto test strip Ql (U)NegativeNormalNegativemg/dLFT UA Auto SSLeukocyte clumps Auto (Urine sed) [#/Area]11-20 graded/HPFInvalid Interpretation CodePUSHMATAHA HOSPITAL – ANTLERS UA Auto SSLeukocyte esterase Auto test strip Ql (U)500 [place]/uL [place]/uLInvalid Interpretation Code NegativeLeu/uLPUSHMATAHA HOSPITAL – ANTLERS UA Auto SSMucus Auto Ql (U)Trace graded/LPFNormal Negativegraded/LPFFTMC UA Auto SSNitrite Auto test strip Ql (U)1+ mg/dLInvalid Interpretation CodeNegativemg/dLPUSHMATAHA HOSPITAL – ANTLERS UA Auto SSpH (U)7.0 *NA* (02/27/24 3:19 AM)Invalid Interpretation Code5.0 - 9.0[facility] UA Auto SSProtein Ql (U)2+ mg/dLInvalid Interpretation CodeNegativemg/dLPUSHMATAHA HOSPITAL – ANTLERS UA Auto SSRBC Ql (U)31- 75 graded/HPFInvalid Interpretation Code0-3graded/HPFFT UA Auto SSSpecific gravity (U) [Rel density]1.011 *NA* (02/27/24 3:19 AM)Invalid Interpretation Code1.005 - 1.030FT UA Auto SS Urobilinogen (U) [Mass/Vol]NegativeNormalNegativemg/dLFT UA Auto SSWBC Auto (Urine sed) [#/Area]>75 graded/HPFInvalid Interpretation Code0-5graded/HPFFT UA Auto SSURINALYSISOrdered By: Elisa Love on 24-95-7277Zjaxnsytf Ql (U)dupl Invalid Interpretation CodeFT UA Auto SSClarity (U)duplInvalid Interpretation CodeFT UA Auto SSColor (U)duplInvalid Interpretation CodePUSHMATAHA HOSPITAL – ANTLERS UA Auto SS Comment on above:Result Comment: duplicate order/credited 02/27/2024 08:19 CSS Interpretive Data: Microscopic readings are only performed on those samples that meet specific criteria set forth by [facility]. Glucose Ql (U)duplInvalid Interpretation CodePUSHMATAHA HOSPITAL – [facility] UA Auto SSHemoglobin Auto test strip (U) [Mass/Vol]duplInvalid Interpretation CodePUSHMATAHA HOSPITAL – ANTLERS UA Auto SSKetones Auto test strip Ql (U)duplInvalid Interpretation CodePUSHMATAHA HOSPITAL – ANTLERS UA Auto SSLeukocyte esterase Auto test strip Ql (U)duplInvalid Interpretation CodePUSHMATAHA HOSPITAL – ANTLERS UA Auto SS Nitrite Auto test strip Ql (U)duplInvalid Interpretation CodePUSHMATAHA HOSPITAL – ANTLERS UA Auto SSpH (U)duplInvalid Interpretation Code5.0 - 9.0[facility] UA Auto SSProtein Ql (U)dupl Invalid Interpretation CodePUSHMATAHA HOSPITAL – ANTL[facility] UA Auto SSSpecific gravity (U) [Rel density]dupl Invalid Interpretation Code1.005 - 1.030[facility] UA Auto SSUrobilinogen (U) [Mass/Vol]duplInvalid Interpretation CodePUSHMATAHA HOSPITAL – ANTLERS UA Auto SSURINALYSISOrdered By: Rudy Gupta on 32-34-1697QE Spec DescClean Catch (02/27/24 3:19 AM)NormalPUSHMATAHA HOSPITAL – ANTLERS UA Auto SS URINALYSISOrdered By: Allison CHANCE on 64-43-5131KT Spec DescRandom Urine (02/27/24 3:19 AM)NormalPUSHMATAHA HOSPITAL – ANTLERS UA Auto SS xr Chest Single Viewon 30-41-2044YV Chest Single View Exam Date/Time: 02/26/2024 17:47 [...] Ka,r in mGy = . DAP = .[facility]ula General HospitaleGFRon 09-91-8211hCXP21 mL/min/1.73 m2 Low>=59[facility] WestComment on above:Order Comment: Order added by Discern Expert.Performed By: #### [id number] #### [facility] [address], [place] [address]YC Draw & Holdon 51-67-9322RI D&HSample drawn for Blood Ba [facility] HospitalComment on above:Performed By: #### [id number] #### [facility] [address], [place] [address]AMMlw 62-78-5900Bseot gap [Moles/Vol]11 mmol/LNormal6-16[facility] Cleveland WestComment on above:Performed By: #### [id number] #### [facility] [address], [place] [address]Unhnpsk [Mass/Vol]8.7 mg/dLLow8.9-11.1Fisher [facility] Medical CenterComment on above:Performed By: #### [id number] #### [facility] [address], [place] [address]Mjbuygdx [Moles/Vol]100 mmol/GUtx345-758MafbnzRegency Hospital Cleveland WestComment on above:Performed By: #### [id number] #### [facility] [address], [place] [address]PG7 [Moles/Vol]26 mmol/ZVdjybs80-25DgjnyfRegency Hospital Cleveland West Comment on above:Performed By: #### [id number] #### [facility] [address], [place] [address]Gbrvhygchs [Mass/Vol]1.8 mg/dLHigh0.5-1.3FMercy Health St. Charles HospitalComment on above:Performed By: #### [id number] #### [facility] [address], [place] [address]Lpfbmaj [Mass/Vol]97 mg/vSHiutou25-506QglpezRegency Hospital Cleveland WestComment on above:Performed By: #### [id number] #### [facility] [address], [place] [address]Gewtyxqju [Moles/Vol]4.4 mmol/LNormal3.5-5.3FMercy Health St. Charles HospitalComment on above:Performed By: #### [id number] #### [facility] [address], [place] [address]Ffdqim [Moles/Vol]133 mmol/RZce617-919FujyyaRegency Hospital Cleveland WestComment on above:Performed By: #### [id number] #### [facility] [address], [place] [address]Quii nitrogen [Mass/Vol]39 mg/dLHigh5-21[facility] Cleveland WestComment on above:Performed By: #### [id number] #### [facility] [address], [place] [address]Aies nitrogen/Creatinine [Mass ratio]22 No SoznzFmjt80-47UhkxwqRegency Hospital Cleveland WestComment on above:Performed By: #### [id number] #### [facility] [address], [place] [address]MES w/ Auto Diffon 03-28-1296Ndfzztnqt/100 WBC (Bld)1.0 %Normal 0.0-2.0[facility] Cleveland WestComment on above:Performed By: #### [id number] #### [facility] [address] [place] [address]Dyqyjblih/Leukocytes Auto (Bld) [Pure # fraction]0.1 E9/LNormal 0.0-0.2FMercy Health St. Charles HospitalComment on above:Performed By: #### [id number] #### [facility] [address] [place] [address]Tyfugqojdtk (Bld) [#/Vol]0.1 E9/LNormal0.0-0.5FMercy Health St. Charles HospitalComment on above:Performed By: #### [id number] #### [facility] [address] [place] [address]Tezjyfvoezj/100 WBC (Bld)0.5 %Normal0.0-8.0[facility] Cleveland WestComment on above:Performed By: #### [id number] #### [facility] [address] [place] [address]Ypwpjaujhsk distribution width (RBC) [Ratio]15.8 %High10.9-14.2 [facility] Cleveland WestComment on above:Performed By: #### [id number] #### [facility] [address] [place] [address]Svlhiwtbee (Bld) [Volume fraction]34.4 %Xrnuhk00.0-46.0[facility] WestComment on above:Performed By: #### [id number] #### [facility] [address] [place] [address]Wjnoymhsen (Bld) [Mass/Vol]10.8 g/dLLow12.0-16.0[facility] WestComment on above:Performed By: #### [id number] #### [facility] [address] [place] [address]Thcuymggcgi (Bld) [#/Vol]1.1 E9/LNormal1.0-4.0[facility] WestComment on above:Performed By: #### [id number] #### [facility] [address] [place] [address]Ebgwoqdrexz/100 WBC (Bld)8.4 %Low14.0-50.0[facility] Cleveland WestComment on above:Performed By: #### [id number] #### [facility] [address], [place] [address]KHI (RBC) [Entitic mass]31.4 mnDjgtsv34.0-34.0[facility] WestComment on above:Performed By: #### [id number] #### [facility] [address] [place] [address]NWAZ (RBC) [Mass/Vol]31.5 g/qAKxhepe25.4-36.0[facility] WestComment on above:Performed By: #### [id number] #### [facility] [address] [place] [address]XQV (RBC) [Entitic vol]99.8 fDJladfj38.0-100.0[facility] WestComment on above:Performed By: #### [id number] #### [facility] [address] [place] [address]Nsnybwhud (Bld) [#/Vol]1.0 E9/LNormal0.2-1.0[facility] WestComment on above:Performed By: #### [id number] #### [facility] [address] [place] [address]Brofwekcewk (Bld) [#/Vol]10.5 E9/LHigh2.0-7.5FMercy Health St. Charles HospitalComment on above:Performed By: #### [id number] #### [facility] [address] [place] [address] 18312Vdaforzhrwp/100 WBC (Bld)82.2 %High36.0-75.0[facility] WestComment on above:Performed By: #### [id number] #### [facility] [address] [place] [address]Gokmkppu mean volume (Bld) [Entitic vol]8.8 fLNormal6.4-10.8 [facility] WestComment on above:Performed By: #### [id number] #### [facility] [address] [place] [address]Ivvcwxxuo (Bld) [#/Vol]211.0 E9/MWulffd095.0-500.0[facility] WestComment on above:Performed By: #### [id number] #### [facility] [address], [place] [address]QCD (Bld) [#/Vol]3.4 E12/LLow4.3-5.9[facility] Comment on above:Performed By: #### [id number] #### [facility] [address] [place], [place] [address]GLG corrected for nucl RBC Auto (Bld) [#/Vol]12.8 E9/LHigh 4.0-11.0[facility] WestComment on above:Performed By: #### [id number] #### [facility] [address] [place] [address] 25472LHVWAGBFSHnqinok By: SYSTEM SYSTEM on 35-95-2670Cwwsoofc HS 59.70 pg/mLInvalid Interpretation Code10.10 - 27.10 pg/mLRemisol ChemComment on above:Result Comment: Critical Result Verified by Previous Result Critical Result I_TnIHS:59.7 Called to and read back by: AMANDA PRESLEY at: 02/26/2024 21:24:01 by:[id number] Data: The 95% CI (Confidence Interval) PPV (Positive Predictive Value) for myocardial infarction in females is 38 pg/mL, in males 51 pg/mL. The results should be used in conjunction withclinical conditions of myocardial infarction. (Access High Sensitivity Troponin I Instructions For Use, [employer], February 2018)Lactic Acid Lvl0.6 mmol/LNormal0.5 - 2.2 mmol/LRemisol ChemTroponin HS70.30 pg/mLInvalid Interpretation Code10.10 - 27.10 pg/mLRemisol ChemComment on above:Result Comment: Critical Result Verified by Previous ResultInterpretive Data: The 95% CI (Confidence Interval) PPV (Positive Predictive Value) for myocardial infarction in females is 38 pg/mL, in males 51 pg/mL. The results should be used in conjunction withclinical conditions of myocardial infarction. (Access High Sensitivity Troponin I Instructions For Use, Yazmin Soraya, February 2018)Anion gap [Moles/Vol]11 mmol/LNormal6 - 16 mEq/LRemisol ChemCalcium [Mass/Vol]8.7 mg/dLLow8.9 - 11.1 mg/dLRemisol ChemChloride [Moles/Vol]100 mmol/L Ajp730 - 111 mmol/LRemisol ChemCO2 [Moles/Vol]26 mmol/WKukczk61 - 31 mmol/L Remisol ChemCreatinine [Mass/Vol]1.8 mg/dLHigh0.5 - 1.3 mg/dLRemisol WrjbySIS80 mL/min/1.73 m2Low>=59mL/min/1.73 b9Igtpzek ChemGlucose [Mass/Vol]97 mg/dLNormal 55 - 199 mg/dLRemisol ChemPotassium [Moles/Vol]4.4 mmol/LNormal3.5 - 5.3 mmol/L Remisol ChemSodium [Moles/Vol]133 mmol/JFuk208 - 145 mmol/LRemisol ChemUrea nitrogen [Mass/Vol]39 mg/dLHigh5 - 21 mg/dLRemisol ChemUrea nitrogen/Creatinine [Mass ratio]22 mg/blUbcu98 - 20Remisol ChemCOAGULATIONOrdered By: Jayshree White on 93-76-3540wRHF Coag (PPP) [Time]30.9 jUtnlif73.1 - 36.5 second(s)[facility] Auto CoagComment on above:Interpretive Data: Parameter 15 days - 4 weeks 1 - [...] the same coagulation reagent and instrumentation as [facility]. Currently there are no coagulation studies available worldwide for children to 14 days, andno normal ranges. Heparin therapeutic range (represented by Anti-Factor Xa activity of 0.2 - 0.4 U/mL) corresponds to PTT of 56.6 - 109.0 sec.INR Coag (PPP) [Relative time]1.07 {INR}Invalid Interpretation CodePUSHMATAHA [facility]OS[facility]ITAL [facility] ANTLERS Auto CoagComment on above:Interpretive Data: INR results are specifically intended to assess patients stabilized on long-term Anticoagulation therapy suggested INR s Less Intensive Anticoagulation 2.0 3.0 Conventional Range 3.0 4.5PT Coag (PPP) [Time]12.0 sNormal9.4 - 12.5 second(s) [facility] Auto CoagComment on above:Interpretive Data: 15 days - 4 weeks 1 - 5 months 6 -11 months 1-5 years 6-10 years 11 -17 years Mean: 11.2 (9.5-12.6) Mean: 11.0 (9.7-12.8) Mean: 11.0 (9.8-13.0) Mean: 11.3 (9.9-13.4) Mean: 11.7 (10.0-14.6) Mean: 11.8 (10.0 - 14.1) Pediatric Reference ranges were obtained from a study by Sharaht Schmidt et al. prepared from 1437 samples obtained at 7 different centers using the same coagulation reagent and instrumentation as [facility]. Currently there are no coagulation studies available worldwide for children to 14 days, andno normal ranges.Capillary Glucose POCon 32-88-6460Wapmyjc [Mass/Vol]64 mg/dLNormal 55-99[facility] WestComment on above:Result Comment: Notified RN/MD Performed By: #### [id number] #### [facility] [address] [place], [place] [address]HG Clinical Summaryon [id number] Clinical SummaryED Clinical Summary [address] [address] ED Clinical Summary Person Information Name: LEXI TATUM Kiana/[facility] Age: 78 Years : 1945 Sex: Female Language: Swedish PCP: STEFAN BEST MD Marital Status: Visit Id: Visit Reason: Chest pain; ALOC Speciality: Acuity: 1 Enc Type: Observation Med Service: Emergency Arrival: 02/26/2024 17:28:58 Discharge: LOS: 000 02:17 Checkin: 02/26/2024 17:28:58 Checkout: 02/26/2024 19:45:18 [facility]po [facility] EVENTS: Event Name Event Status Request [...] 18:57:34 Patient Care Request 02/26/2024 18:57:34 ADDRESS: [address] [place] [phone] [facility] DOC NOTES: MEDICAL INFORMATION: Prescriptions Given: PATIENT EDUCATION INFORMATION: Instructions: Follow up: DIAGNOSIS: 1:Sepsis; 2:Urinary tract infection; 3:Acute kidney injury; 4:Generalized weakness; 5:Diabetes; 6:Pure hypercholesterolemia; 7:Class 3 severe obesity with serious comorbidity in adult; 8:Coronary artery disease; 9:On deep vein thrombosis (DVT) prophylaxisNormCollege Medical Center Medical CenterED Patient Education Noteon [id number] Patient Education NoteED Patient Education Note [facility] CenterED Patient Summaryon [id number] Patient SummaryED Patient Summary [address] [address] Patient Discharge Instructions Person Information Name: LEXI TATUM Age: 78 Years Arrival Date: 02/26/2024 17:28:58 Discharge Diagnosis: 1:Sepsis; 2:Urinary tract infection; 3:Acute kidney injury; 4:Generalized weakness; 5:Diabetes; 6:Pure hypercholesterolemia; 7:Class 3 severe obesity with serious comorbidity in adult; 8:Coronary artery disease; 9:On deep vein thrombosis (DVT) prophylaxis Primary Care Physician: STEFAN BEST MD Provider Information Primary Provider: Advanced Bobbin Trucker:Rudy Gupta PA-C The exam and treatment you received in the Emergency Department were for an urgent problem and are not intended as complete care. It is important that you follow up with a doctor, nurse practitioner,or physician?s dietetic assistant for ongoing care. If your symptoms become worse or you do not improve as expected and you are unable to reach your usual health care provider, you should return to the Emergency Department. We are available 24 hours a day. RC LEXI Nestor has been given the following list [...] opioids can be used to help relieve rkacqyfp-ch-rzdbfs pain and are often prescribed following a [...] and have fewer risks and side effects. Optionsmay include: ? Pain relievers such as acetaminophen, [...] unused prescription opioids: Find your community drug take- back program or [employer] mail-back program, or flush them down the toilet, following guidance from the Food and Drug Administration (www.fda.gov/Drugs/ResourcesForYou). ? Visit www.cdc.gov/drugoverdose to learn about the risks of opioids abuse and overdose. ? If you believe you may be struggling with addiction, tell your health post acute care nurse practitioner and ask fo (more content not included)...[facility] HospitalHEMATOLOGYOrdered By: SYSTEM SYSTEM on 67-60-8961Jqutakixg/100 WBC (Bld) 1.0 %Normal0.0 - 2.0 %Remisol HemeBasophils/Leukocytes Auto (Bld) [Pure # fraction]0.1 E9/LNormal0.0 - 0.2 E9/LRemisol HemeEosinophils (Bld) [#/Vol]0.1 E9/LNormal0.0 - 0.5 E9/LRemisol HemeEosinophils/100 WBC (Bld)0.5 %Normal0.0 - 8.0 %Remisol HemeErythrocyte distribution width (RBC) [Ratio]15.8 %High10.9 - 14.2 %Remisol HemeHematocrit (Bld) [Volume fraction]34.4 %Pvsunw97.0 - 46.0 % Remisol HemeHemoglobin (Bld) [Mass/Vol]10.8 g/dLLow12.0 - 16.0 gm/dLRemisol Heme Lymphocytes (Bld) [#/Vol]1.1 E9/LNormal1.0 - 4.0 E9/LRemisol HemeLymphocytes/100 WBC (Bld)8.4 %Low14.0 - 50.0 %Remisol HemeMCH (RBC) [Entitic mass]31.4 pgNormal 27.0 - 34.0 pgRemisol HemeMCHC (RBC) [Mass/Vol]31.5 g/xNAspfpq82.4 - 36.0 gm/dL Remisol HemeMCV (RBC) [Entitic vol]99.8 tUNecxib98.0 - 100.0 fLRemisol Heme Monocytes (Bld) [#/Vol]1.0 E9/LNormal0.2 - 1.0 E9/LRemisol HemeMonocytes/100 WBC (Bld)7.9 %Normal4.0 - 14.0 %Remisol HemeNeutrophils (Bld) [#/Vol]10.5 E9/LHigh 2.0 - 7.5 E9/LRemisol HemeNeutrophils/100 WBC (Bld)82.2 %High36.0 - 75.0 % Remisol HemePlatelet mean volume (Bld) [Entitic vol]8.8 fLNormal6.4 - 10.8 fL Remisol HemePlatelets (Bld) [#/Vol]211.0 E9/EFkjakd093.0 - 500.0 E9/LRemisol HemeRBC (Bld) [#/Vol]3.4 E12/LLow4.3 - 5.9 E12/LRemisol HemeWBC corrected for nucl RBC Auto (Bld) [#/Vol]12.8 E9/LHigh4.0 - 11.0 E9/LRemisol HemeLactic Acidon 27-25-7866Nrmtjr Acid Lvl0.6 mmol/LNormal0.5-2.2FMercy Health St. [facility] Hospital Comment on above:Performed By: #### [id number] #### [facility] [address], [place] [address]Bj Panel InformationOrdered By: ANGPROCESSSERVER MICROBIOLOGY on 89-22-8563Jqwyv Culture CharcoalNo growth at 3 days. Final to follow at 7 days.[facility] HospitalPT & PTTon 81-17-9595vGDF Coag (PPP) [Time] 30.9 second(s)Alwzxz00.1-36.5FMercy Health St. Charles HospitalComment on above:Result Comment: Parameter 15 days - 4 weeks 1 - [...] the same coagulation reagent and instrumentation as [facility]. Currently there are no coagulation studies available worldwide for children to 14 days, andno normal ranges. Heparin therapeutic range (represented by Anti-Factor Xa activity of 0.2 - 0.4 U/mL) corresponds to PTT of 56.6 - 109.0 sec.Performed By: #### [id number] #### Tan [facility] [address], [place] [address]SUA Coag (PPP) [Relative time]1.07 {INR}Invalid Interpretation ElizabethRegency Hospital Cleveland WestComment on above:Result Comment: INR results are specifically intended to assess patients stabilized on long-term Anticoagulation therapy suggested INR?s ?Less Intensive Anticoagulation? 2.0 ? 3.0 Conventional Range 3.0 ? 4.5Performed By: #### [id number] #### [facility] [address], [place] [address]BZ Coag (PPP) [Time]12.0 second(s)Normal9.4-12.5FMercy Health St. Charles HospitalComment on above:Result Comment: 15 days - 4 weeks 1 - [...] the same coagulation reagent and instrumentation as [facility]. Currently there are no coagulation studies available worldwide for children to 14 days, andno normal ranges.Performed By: #### [id number] #### Dominick [facility] [address], [place] [address]Kgmwakmg 0 Hr.on 38-67-8494Vabowoze HS74.90 pg/mLAbnormal 10.10-27.10[facility] WestComment on above:Result Comment: Critical Result Verified by Repeat Analysis Critical Result I_TnIHS:74.9 Called to and read back by: RUDY PATRICK RN at: 02/26/2024 18:18:39 by:[facility] The 95% CI (Confidence Interval) PPV (Positive Predictive Value) for myocardial infarction in females is 38 pg/mL, in males 51 pg/mL. The results should be used in conjunction with clinical conditions of myocardial infarction. (Access High Sensitivity Troponin I Instructions For Use, Yazmin [place], February 2018)Performed By: #### [id number] #### Dominick [facility] [address], [place] [address]Aexdviqb 1 Hr.on 93-06-0719Aalmdqmx HS70.30 pg/mLAbnormal 10.10-27.10[facility] WestComment on above:Order Comment: 1830Result Comment: Critical Result Verified by Previous Result The 95% CI (Confidence Interval) PPV (Positive Predictive Value) for myocardial infarction in females is 38 pg/mL, in males 51 pg/mL. The results should be used in conjunction with clinical conditions of myocardial infarction. (Access High Sensitivity Troponin I Instructions For Use, [employer], February 2018)Performed By: #### [id number] #### [facility] [address], [place] [address]Xdabjxlu 3 Hr.on 90-95-9851Ysrxoggs HS59.70 pg/mLAbnormal 10.10-27.10[facility] WestComment on above:Result Comment: Critical Result Verified by Previous Result Critical Result I_TnIHS:59.7 Called to and read back by: AMANDA PRESLEY at: 02/26/2024 21:24:01 by:[id number] The 95% CI (Confidence Interval) PPV (Positive Predictive Value) for myocardial infarction in females is 38 pg/mL, in males 51 pg/mL. The results should be used in conjunction with clinical conditions of myocardial infarction. (EnWave High Sensitivity Troponin I Instructions For Use, [employer], February 2018)Performed By: #### [id number] #### [facility] [address], [place] [address]FW with Cult Rflxon 74-84-7414Gfeh of Urine collection method Random UrineNoAultman Alliance Community HospitalComment on above:Performed By: #### [id number] #### [facility] [address], [place] [address]Fykm of Urine collection methodClean CatchNormOhioHealth Southeastern Medical CenterComment on above:Performed By: #### [id number] #### [facility] [address], [place] [address]sWHEna 55-12-5908zKWV44 mL/min/1.73 m2Low>=59Reg[facility] Hospital Cleveland WestComment on above:Order Comment: Order added by Discern Expert. Performed By: #### [id number] #### [facility] [address], [place] [address]Bgullnodjz Visit Summaryon 97-57-1675Ujdqltlesn Visit Summary Ambulatory Visit Summary LEXI TATUM [...] Schedule the Following Appointments Follow Up with Yaniv NATARAJAN MD, URNestor When: [facility] [address] [place] [address]- Medications What How Much When Why Instructions Unchanged acetaminophen (Tylenol) 650 Milligram By Mouth Contact prescribing physician if questionsor concerns Unchanged allopurinol (allopurinol 300 mg Tab) [...] Pure hypercholesterolemia Vitamin D deficiency Urinary incontinence Contact prescribing [...] Gout Hydronephrosis Long-term insulin use Osteoarthritis Pure hypercholesterolemia 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 female here [place] [facility] [facility] [place] [...] and history for this patient from Dr. Nataraajn and external providers. I have reviewed and [...] female new pt here for [place] [facility]. 1. 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 AP wo con 01/22/24 [facility] [place] [...] These include the need for additional procedures, bleeding,infection, injury to the ureter, moderate to severe [...] We discussed options including referral to the [facility] for consideration of ureterolysis. She is not interested in any major operations. She does know thatthis may commit her to intermittent stent changes at least every 3 months or so until we establish that she has not a rapid stent encrustation patient Therefore we will put her on the schedule for a stent change around April 2024. In the meantime Corky try to get a hold of her milk hauler Dr. Ashby. GFR was around 28 at last [facility] (more content not included)...[facility] HospitalComment on above:Result Comment: Electronically Signed By: REESE MARLOW, Yaniv Mcarthur.mane\Date and Time Signed: 02/10/24 16:40 EDTBasophils Auto (Bld) [#/Vol]Ordered By: Norberto Pires on 07-25-3090Jribcsyux (Bld) [#/Vol]0.0 10*3/uL0.0-0.2FMemorial Health SystemBasophils/100 WBC Auto (Bld) Ordered By: Norberto Pires on 16-76-0852Ctxaiyvkv/100 WBC (Bld)0.5 %. [facility] Medical CenterCalcium [Mass/volume] in Serum or PlasmaOrdered By: Norberto Pires on 13-30-2931Rgfqdft [Mass/Vol]8.6 mg/dL8.6-10.3 [facility] Medical CenterCarbon dioxide, total [Moles/volume] in Serum or PlasmaOrdered By: Norberto Pires on 27-21-3673PE8 [Moles/Vol]27.5 mmol/L21.0-31.0[facility] Medical CenterChloride [Moles/volume] in Serum or PlasmaOrdered By: Norberto Pires on 94-58-0056Hoecigcm [Moles/Vol]106 mmol/X14-219JhkfvsobxUniversity Hospitals Elyria Medical CenterCreatinine [Mass/volume] in Serum or PlasmaOrdered By: Norberto Pires on 66-84-4479Okcwpuvkxk [Mass/Vol]1.80 mg/dLHigh0.60-1.20[facility] Medical CenterEosinophils Auto (Bld) [#/Vol]Ordered By: Norberto Pires on 25-21-9459Wxftysuotka (Bld) [#/Vol] 0.3 10*3/uL0.0-0.45[facility] Medical CenterEosinophils/100 WBC Auto (Bld)Ordered By: Norberto Pires on 22-69-2079Zdfcmufbrfg/100 WBC (Bld)3.2 %.[facility] Medical CenterErythrocyte distribution width Auto (RBC) [Ratio]Ordered By: Norberto Pires on 96-44-4376Fzmagkqrmms distribution width (RBC) [Ratio]17.3 %High11.9-15.3FMemorial Health SystemGlucose Glucometer (BldC) [Mass/Vol]Ordered By: Norberto Pires on 01-25-2024 Glucose [Mass/Vol]149 mg/dLUniversity Hospitals Elyria Medical CenterComment on above: Random Glucose Reference Range is dependent on time and content of last meal. Glucose of more than 200 mg/dL in a nonstressed, ambulatory subject supports the diagnosis of Diabetes Mellitus.Glucose [Mass/volume] in Serum or PlasmaOrdered By: Norberto Pires on 06-61-5512Podkfne [Mass/Vol]75 mg/oX56-833ZatuzjcsbUniversity Hospitals Elyria Medical CenterComment on above:ADA recommended reference rangeRandom Glucose Reference Range is dependent on time and content of last meal. Glucose of more than 200 mg/dL in a nonstressed, ambulatory subject supports the diagnosisof Diabetes Mellitus.Hematocrit Auto (Bld) [Volume fraction]Ordered By: Norberto Pires on 41-57-3102Urumxcfjug (Bld) [Volume fraction]30.5 %Low 34.0-46.4FMemorial Health SystemHemoglobin [Mass/volume] in Blood Ordered By: Norberto Pires on 50-51-8924Dkuogbcaky (Bld) [Mass/Vol]9.8 g/dLLow11.8-15.4FMemorial Health SystemLeukocytes [#/volume] corrected for nucleated erythrocytes in Blood by Automated counOrdered By: Norberto Pires on 53-20-2944EBY corrected for nucl RBC Auto (Bld) [#/Vol]8.3 10*3/uL 3.8-11.6FMemorial Health SystemLymphocytes Auto (Bld) [#/Vol]Ordered By: Norberto Pires on 47-39-0488Ixxkbypmlsb (Bld) [#/Vol]1.9 10*3/uL 1.00-4.8[facility] Medical CenterLymphocytes/100 WBC Auto (Bld)Ordered By: Norberto Pires on 33-57-6948Zotzehpyuwk/100 WBC (Bld)22.6 %.[facility] Medical CenterMCH Auto (RBC) [Entitic mass]Ordered By: Norberto Pires on 12-66-6813MKT (RBC) [Entitic mass]32.7 pg24.7-34.3FMemorial Health SystemMCHC Auto (RBC) [Mass/Vol]Ordered By: Norberto Pires on 03-13-1930JATT (RBC) [Mass/Vol]32.1 g/dL32.0-35.0[facility] Medical CenterMCV Auto (RBC) [Entitic vol]Ordered By: Norberto Pires on 29-28-5011BYQ (RBC) [Entitic vol]101.8 eKLlag28-025GqqkevdbfUniversity Hospitals Elyria Medical CenterMonocytes Auto (Bld) [#/Vol]Ordered By: Norberto Pires on 01-25-2024 Monocytes (Bld) [#/Vol]0.8 10*3/uL0.0-0.8[facility] Monocytes/100 WBC Auto (Bld)Ordered By: Norberto Pires on 01-25-2024 Monocytes/100 WBC (Bld)9.1 %.[facility] Medical CenterNeutrophils Auto (Bld) [#/Vol]Ordered By: Norberto Pires on 17-49-1959Ayybszrifxt (Bld) [#/Vol]5.4 10*3/uL1.8-7.7FMemorial Health SystemNeutrophils/100 WBC Auto (Bld)Ordered By: Norberto Pires on 77-23-1130Teoiilpkwla/100 WBC (Bld)64.6 %.[facility] Medical CenterNo Panel InformationOrdered By: Norberto Pires on 75-15-6647Blwufysvh GFR (CKD-EPI)28.482 mL/MinUniversity Hospitals Elyria Medical CenterPharmacy Creatinine Clearance (Chem24.11[facility] Medical CenterNucleated erythrocytes [Presence] in Blood by Automated countOrdered By: Norberto Pires on 57-31-1130Woykrcxsq RBC Auto Ql (Bld) 0.1 /100{WBC}0-0.5FMemorial Health SystemPlatelet mean volume Auto (Bld) [Entitic vol]Ordered By: Norberto Pires on 85-29-9456Dcjbudgf mean volume (Bld) [Entitic vol]9.1 fL6.3-10.7FMemorial Health System Platelets Auto (Bld) [#/Vol]Ordered By: Norberto Pires on 01-25-2024 Platelets (Bld) [#/Vol]202 10*3/cF896-544SatbccgjkUniversity Hospitals Elyria Medical Center Potassium [Moles/volume] in Serum or PlasmaOrdered By: Norberto Pires on 52-06-5414Stuyggygo [Moles/Vol]3.6 mmol/L3.5-5.1FMemorial Health SystemRBC Auto (Bld) [#/Vol]Ordered By: Norberto Pires on 86-74-7604LPQ (Bld) [#/Vol]3.00 10*6/uLLow3.60-5.00Knox Community Hospitalerum or plasma anion gap determinationOrdered By: Norberto Pires on 01-25-2024 Anion gap [Moles/Vol]10.1 mmol/L6.0-15.0Knox Community Hospitalodium [Moles/volume] in Serum or PlasmaOrdered By: Norberto Pires on 01-25-2024 Sodium [Moles/Vol]140 mmol/L427-187VztpasvvmUniversity Hospitals Elyria Medical CenterUrea nitrogen [Mass/volume] in Serum or PlasmaOrdered By: Norberto Pires on 30-02-9438Zhuo nitrogen [Mass/Vol]25 mg/dL7-[facility] WBC Auto (Bld) [#/Vol]Ordered By: Norberto Pires on 40-87-1441ZDD (Bld) [#/Vol]8.3 10*3/uL3.8-11.6FMemorial Health SystemAlanine aminotransferase [Enzymatic activity/volume] in Serum or PlasmaOrdered By: Norberto Pires on 19-35-2750OIT [Catalytic activity/Vol]3 U/LLow7-52 [facility] Medical CenterAlbumin [Mass/volume] in Serum or Plasma by Bromocresol green (BCG) dye binding methoOrdered By: Norberto Pires on 81-82-9709Adowvwi BCG dye [Mass/Vol]3.2 g/dLLow3.5-5.7FMemorial Health SystemAlkaline phosphatase [Enzymatic activity/volume] in Serum or Plasma Ordered By: Norberto Pires on 98-82-0513VEC [Catalytic activity/Vol]49 U/L 34-104[facility] Medical CenterAspartate aminotransferase [Enzymatic activity/volume] in Serum or PlasmaOrdered By: Norberto Pires on 89-31-3798ZOP [Catalytic activity/Vol]10 U/XHeq21-72YgvmvrkpoUniversity Hospitals Elyria Medical CenterBilirubin.total [Mass/volume] in Serum or PlasmaOrdered By: Norberto Pires on 98-24-8628Yoczgzvbd [Mass/Vol]0.2 mg/dLLow0.3-1.0[facility] Medical CenterGlobulin Calc (S) [Mass/Vol]Ordered By: Norberto Pires on 20-99-8347Wtqhyzkt (S) [Mass/Vol]3.0 g/dLUniversity Hospitals Elyria Medical CenterNo Panel InformationOrdered By: Norberto Pires on 80-52-4348Abqkuzu Glucose CommentGlu2: cleaned meterUniversity Hospitals Elyria Medical CenterProtein [Mass/volume] in Serum or PlasmaOrdered By: Norberto Pires on 32-05-0909Dctfygi [Mass/Vol]6.2 g/dLLow6.4-8.9Knox Community Hospitalerum or plasma albumin/globulin mass ratioOrdered By: Norberto Pires on 01-24-2024 Albumin/Globulin [Mass ratio]1.1 {ratio}[facility] Activated partial thromboplastin time (aPTT) in platelet poor plasma by coagulation aOrdered By: Norberto Pires on 69-46-2427tPUD Coag (PPP) [Time]30.7 s25.1-36.5FMemorial Health SystemComment on above:A hematocrit value greater than 55% may lead to inaccurate results in coagulation testing. Patientshaving hematocrit values >55% require a special collection tube for coagulation studies. Please contact the laboratory at [phone] for redraw instructions.Creatine kinase [Enzymatic activity/volume] in Serum or PlasmaOrdered By: Norberto Pires on 99-35-8856LJ [Catalytic activity/Vol] 30 U/H80-894ApamffvurUniversity Hospitals Elyria Medical CenterCreatine kinase.MB [Mass/volume] in Serum or PlasmaOrdered By: Norberto Pires on 08-26-7707DT.MB [Mass/Vol] 2.3 ng/mL0.6-6.3FMemorial Health SystemINR in Platelet poor plasma by Coagulation assayOrdered By: Norberto Pires on 64-20-4944KZF Coag (PPP) [Relative time]0.9 {INR}[facility] CenterComment on above:INR Therapeutic Range A) Pre- and Peroperative OAT [...] Prothrombin time (PT)Ordered By: Norberto Pires on 59-56-4943XT Coag (PPP) [Time]11.0 s9.0-12.9[facility] CenterComment on above:A hematocrit value greater than 55% may lead to inaccurate results in coagulation testing. Patientshaving hematocrit values >55% require a special collection tube for coagulation studies. Please contact the laboratory at [phone] for redraw instructions.Serum or plasma creatine kinase MB (CKMB)/total creatine kinase (CK) ratio by calculaOrdered By: Norberto Pires on 29-64-8797CF.MB Calc [Catalytic fraction]7.6 %High0.00-2.50[facility] Troponin I.cardiac [Mass/volume] in Serum or Plasma by Detection limit <= 0.01 ng/Ordered By: Norberto Pires on 68-97-3531Vxhsiudc I.cardiac DL <= 0.01 ng/mL [Mass/Vol]20.7 pg/mLHigh0.0-15.0[facility] CenterBacteria [Presence] in Urine by AutomatedOrdered By: Christen Oshea on 01-22-2024 Bacteria Auto Ql (U)Rare [HPF]None SeenUniversity Hospitals Elyria Medical Center Bilirubin Test strip Ql (U)Ordered By: Christen Oshea on 21-63-2957Uqslihulu Ql (U)NegativeNegGreene Memorial HospitalColor Auto (U)Ordered By: Christen Oshea on 74-36-0653Nlwyy (U)ColorlessYellowUniversity Hospitals Elyria Medical CenterEpithelial cells.squamous [#/area] in Urine sediment by Automated count Ordered By: Christen Oshea on 35-29-5594Ftzyrubhyq cells.squamous Auto (Urine sed) [#/Area]1-2 [HPF]0-2FMemorial Health SystemErythrocytes [#/area] in Urine sediment by Automated countOrdered By: Christen Oshea on 61-84-0102VVR Auto (Urine sed) [#/Area]1-2 [HPF]0-4FMemorial Health SystemGlucose [Mass/volume] in Urine by Test stripOrdered By: Christen Oshea on 01-22-2024 Glucose Test strip (U) [Mass/Vol]Normal mg/dLNormalUniversity Hospitals Elyria Medical CenterHemoglobin Test strip Ql (U)Ordered By: Christen Oshea on 01-22-2024 Hemoglobin Ql (U)NegativeNegGreene Memorial HospitalHyaline casts [#/area] in Urine sediment by Automated countOrdered By: Christen Oshea on 65-27-0164Hyqndnm casts Auto (Urine sed) [#/Area]0-8 [LPF]0-8[facility] Medical CenterKetones Test strip Ql (U)Ordered By: Christen Oshea on 01-22-2024 Ketones Ql (U)NegativeNegGreene Memorial HospitalLeukocyte clumps [Presence] in Urine by AutomatedOrdered By: Christen Oshea on 01-22-2024 Leukocyte clumps Auto Ql (U)Occasional [LPF]HighNone SeenUniversity Hospitals Elyria Medical CenterLeukocyte esterase [Presence] in Urine by Test stripOrdered By: Christen Oshea on 42-65-1230Plhhfbujl esterase Test strip Ql (U)1+HighNegative [facility] CenterLeukocytes [#/area] in Urine sediment by Automated countOrdered By: Christen Oshea on 25-09-8998QNM Auto (Urine sed) [#/Area]5-9 [HPF]High0-4FMemorial Health SystemMonocyte distribution width [Entitic volume] in Blood by AutomatedOrdered By: Christen Oshea on 33-96-1261Twgauhzw distribution width Auto (Bld) [Entitic vol]19.69 %0.00-20.00 [facility] Medical CenterNitrite Test strip Ql (U)Ordered By: Christen Oshea on 54-56-2565Pqakczb Ql (U)NegativeNegGreene Memorial HospitalProtein Test strip (U) [Mass/Vol]Ordered By: Christen Oshea on 01-22-2024 Protein (U) [Mass/Vol]50 mg/dLHighNegGreene Memorial Hospital Specific gravity Test strip (U) [Rel density]Ordered By: Christen Oshea on 80-43-4112Xtzdnvhy gravity (U) [Rel density]1.0101.001-1.030[facility] CenterUrine appearanceOrdered By: Christen Oshea on 01-22-2024 Appearance (U)CloudyAbnormalCleSheltering Arms HospitalUrine culture routineOrdered By: Christen Oshea on 53-32-8620Atunvixl identified Cx Nom (U) [facility] CenterUrobilinogen Test strip (U) [Mass/Vol]Ordered By: Christen Oshea on 36-03-8444Jwsifaagzflj (U) [Mass/Vol]Normal mg/dLMercy Health Defiance HospitalpH Test strip (U)Ordered By: Christen Oshea on 23-02-6725gX (U)7.0 [pH]5.0-9.0[facility] Health Recordson 39-76-7377Ctbt Health Records [id number]#1.00TIFFNormalFisher [facility] Health [id number]#1.00TIFFNormal Tan [facility] Medical CenterBasophils Auto (Bld) [#/Vol]on 08-97-2978Tlazwlvdv (Bld) [#/Vol]0.0 10 3/uL0.0-0.1FMemorial Health SystemBasophils/100 WBC Auto (Bld)on 77-42-2574Lxxqxtnoi/100 WBC (Bld)0.3 %0.2-2.0[facility] CenterEosinophils/100 WBC Auto (Bld)on 13-36-6619Aqqoszpvkbt/100 WBC (Bld)2.9 %0.9-7.0[facility] CenterErythrocyte distribution width Auto (RBC) [Ratio]on 94-05-5733Jscnusdxvgp distribution width (RBC) [Ratio]16.4 %High11.0-15.0[facility] CenterEstimated glomerular filtration rate (GFR) non- Americanon 22-50-9780BBK/1.73 sq M.predicted among non- blacks MDRD (S/P/Bld) [Vol rate/Area]20 mL/min/{1.73_m2}Low>=60[facility] CenterGlobulin Calc (S) [Mass/Vol]on 77-44-3380Yggxyiji (S) [Mass/Vol]4.3 g/dLUniversity Hospitals Elyria Medical CenterHematocrit Auto (Bld) [Volume fraction]on 68-52-4393Wfdbywoxde (Bld) [Volume fraction]31.8 %Low36.0-48.0 [facility] Medical CenterHemoglobin [Mass/volume] in Bloodon 12-06-2023 Hemoglobin (Bld) [Mass/Vol]9.5 g/dLLow12.0-16.0[facility] Laboratory - Chemistry and Chemistry - challengeon 62-84-2401Uchodss [Mass/Vol] 2.8 g/dLLow3.4-5.0[facility] CenterALP [Catalytic activity/Vol] 55 U/X95-540UgmsxugqkUniversity Hospitals Elyria Medical CenterALT [Catalytic activity/Vol]11 U/L Urt87-05WpegnntorUniversity Hospitals Elyria Medical CenterAST [Catalytic activity/Vol]8 U/LLow 15-37[facility] CenterBilirubin [Mass/Vol]0.4 mg/dL0.2-1.0 [facility] CenterCalcium [Mass/Vol]9.0 mg/dL8.5-10.1FMemorial Health SystemChloride [Moles/Vol]100 mmol/L24-607BkwvjaavyUniversity Hospitals Elyria Medical CenterCO2 [Moles/Vol]29.7 mmol/L21.0-32.0[facility] CenterCobalamin (Vitamin B12) [Mass/Vol]380 pg/xB890-9748NxxgncvvdUniversity Hospitals Elyria Medical CenterComment on above:Performed at: [facility] [address] [id number] Director: Mohan Talbert PhD, Phone: [phone] Creatinine [Mass/Vol]2.33 mg/dLHigh0.55-1.02[facility] Ferritin [Mass/Vol]76.0 ng/mL8.0-252.0[facility] CenterGFR/1.73 sq M.predicted MDRD (S/P/Bld) [Vol rate/Area]24 mL/min/{1.73_m2}Low>=60[facility] CenterGlucose [Mass/Vol]111 mg/iZDnam29-810IrmjmtqxyUniversity Hospitals Elyria Medical CenterLDH [Catalytic activity/Vol]149 U/R91-022OhonkpjxnUniversity Hospitals Elyria Medical CenterPotassium [Moles/Vol]4.4 mmol/L3.5-5.1FMemorial Health SystemProtein [Mass/Vol]7.1 g/dL6.4-8.2FCleveland Clinic [facility]odi Hospitalodium [Moles/Vol]137 mmol/J829-223SfgaoroqgUniversity Hospitals Elyria Medical CenterUrea nitrogen [Mass/Vol]45.0 mg/dLHigh7.0-18.0[facility] CenterUrea nitrogen/Creatinine [Mass ratio]19.3 mg/mgUniversity Hospitals Elyria Medical Center Laboratory - Hematology and Cell countson 99-92-6403Fhcyofmi granulocytes/100 WBC (Bld)0.3 %0.0-0.5FMemorial Health SystemLeukocytes [#/volume] corrected for nucleated erythrocytes in Blood by Automated counon 24-87-9184RLS corrected for nucl RBC Auto (Bld) [#/Vol]12.3 10 3/uLHigh4.0-11.0[facility] Medical CenterLymphocytes Auto (Bld) [#/Vol]on 06-50-4698Xlbraqqrett (Bld) [#/Vol]1.7 10 3/uL1.2-3.8[facility] Medical CenterLymphocytes/100 WBC Auto (Bld)on 36-77-6070Qpiqhtmuoby/100 WBC (Bld)13.7 %Low20.5-60.0[facility] HospitalH Auto (RBC) [Entitic mass]on 00-38-0357IJE (RBC) [Entitic mass]31.0 pg26.7-34.0[facility] Medical CenterMCHC Auto (RBC) [Mass/Vol]on 38-65-8576SIAZ (RBC) [Mass/Vol]29.9 g/dL29.9-35.2FMemorial Health SystemMCV Auto (RBC) [Entitic vol]on 34-10-8168FRK (RBC) [Entitic vol] 103.9 cYNnxs94.0-99.0[facility] CenterMonocytes Auto (Bld) [#/Vol]on 81-60-4181Neipkucjf (Bld) [#/Vol]0.8 10 3/uL0.3-0.8[facility] CenterMonocytes/100 WBC Auto (Bld)on 64-06-3280Kslxxacwv/100 WBC (Bld) 6.2 %1.7-12.0[facility] Medical CenterNeutrophils Auto (Bld) [#/Vol]on 32-26-1595Lebouceozhi (Bld) [#/Vol]9.4 10 3/uLHigh1.4-6.5FMemorial Health SystemNeutrophils/100 WBC Auto (Bld)on 62-54-9264Vzetstpguqj/100 WBC (Bld)76.6 %High43.0-75.0[facility] CenterNo Panel Informationon 52-89-2710Vflxleuedcv # (Auto)0.4 10 3/uL0.0-0.7FMemorial Health SystemFolate8.2 ng/mL>3.0[facility] CenterComment on above:A serum folate concentration of less than 3.1 ng/mL isconsidered to represent clinical deficiency.Performed at: [facility] [address] [id number] Director: Mohan Talbert PhD, Phone: [phone] Granulocyte # (Auto)0.04 10 3/uLHigh0.00-0.03[facility] Platelet mean volume Auto (Bld) [Entitic vol]on 94-41-7807Zopefjnx mean volume (Bld) [Entitic vol]11.5 fL9.5-13.5FMemorial Health SystemPlatelets Auto (Bld) [#/Vol]on 88-70-8034Uxzoyvdwq (Bld) [#/Vol]209 10 3/qQ324-352 [facility] Medical CenterRBC Auto (Bld) [#/Vol]on 04-09-4270SDE (Bld) [#/Vol]3.06 10 6/uLLow4.20-5.40[facility] Reticulocytes/100 RBC Auto (Bld)on 82-66-1839Chmiwlgbullyo/100 RBC (Bld)2.59 % 0.60-3.10[facility] Hospitalerum or plasma albumin/globulin mass ratioon 21-96-4987Jnysymn/Globulin [Mass ratio]0.7 {ratio}[facility] Hospitalerum or plasma anion gap determinationon 69-64-8203Crmdd gap [Moles/Vol]11.7 mmol/LFMemorial Health SystemAlbumin [Mass/volume] in Serum or Plasma by Bromocresol green (BCG) dye binding methoOrdered By: Da Lozano on 02-12-0441Mffyawn BCG dye [Mass/Vol]3.7 g/dL3.5-5.7FMemorial Health SystemCotinine [Mass/volume] in Serum or PlasmaOrdered By: Da Lozano on 66-45-9283Dbundosf [Mass/Vol]<1.0 ng/mL.[facility] CenterComment on above:This test was developed and its performance characteristicsdetermined by [employer]. It has not been cleared orapproved by the Food and Drug Administration.Cotinine levels greater than 20.0 are consistent with theuse of tobacco or tobacco cessation products.Performed at: [address] [id number] Director: Navneet Carcamo MD, Phone: [phone] mean value [Mass/volume] in Blood Estimated from glycated hemoglobinOrdered By: Da Lozano on 18-75-4920Uweoqzx glucose Estimated from glycated hemoglobin (Bld) [Mass/Vol]166 mg/dLUniversity Hospitals Elyria Medical CenterHemoglobin A1c percentageOrdered By: Da Lozano on 12-02-2023 HbA1c (Bld) [Mass fraction]7.4 %High4.3-5.6FMemorial Health System Comment on above:Increased risk for diabetes: 5.7 - 6.4diabetes: >6.4glycemic control for adults with diabetes: <7.0Hemoglobin [Mass/volume] in Blood Ordered By: Da Lozano on 75-71-6826Uixyjfhqig (Bld) [Mass/Vol]10.3 g/dLLow 11.8-15.4FMemorial Health SystemNicotine [Mass/volume] in Serum or PlasmaOrdered By: Da Lozano on 61-82-3066Irtcywfm [Mass/Vol]<1.0 ng/mL. [facility] CenterComment on above:This test was developed and its performance characteristicsdetermined by [employer]. It has not been cleared orapproved by the Food and Drug Administration.Nicotine levels greater than 2.0 are consistent with theuse of tobacco or tobacco cessation products.Vitamin D+Metabolites [Mass/volume] in Serum or PlasmaOrdered By: Da Lozano on 14-11-8223Aruryir D+Metabolites [Mass/Vol]91.9 ng/sY23-039MbqgznbsxUniversity Hospitals Elyria Medical CenterComment on above:VITAMIN D STATUS 25(OH)VITAMIN D RANGE (ng/mL) Deficient <20 Insufficient 20 to <04Uxvfxuloqy99 to 100Reference: Laney MF,Abhijeet NC, Stacey CHATMAN, et al. Evaluation,treatment, and prevention of vitamin D deficiency; an Endocrine Society clinical practice guideline. JCEM. 2010; 96(7):1911-30.Wound methicillin resistant Staphylococcus aureus (MRSA) cultureOrdered By: Da Lozano on 92-84-5103NALS isol Org specific cx Ql (Unsp spec)No MRSA Isolated 2 DaysUniversity Hospitals Elyria Medical CenterGlucose mean value [Mass/volume] in Blood Estimated from glycated hemoglobinon 00-14-0576Lieqqek glucose Estimated from glycated hemoglobin (Bld) [Mass/Vol]160 mg/dLUniversity Hospitals Elyria Medical CenterLaboratory - Hematology and Cell countson 98-19-1882MuJ8b (Bld) [Mass fraction]7.2 %High4.5-6.2FMemorial Health SystemComment on above:ADA RECOMMENDED LIMIT 4.0 - 6.0ADA THERAPEUTIC TARGET < 7.0ACTION SUGGESTED> 7.0Laboratory - Chemistry and Chemistry - challengeon 73-01-8557Xigdcbxpg Ql (U)NegativeUniversity Hospitals Elyria Medical CenterGlucose (U) [Mass/Vol]NegativeUniversity Hospitals Elyria Medical CenterKetones Ql (U)Negative [facility] Medical CenterpH (U)5 [pH][facility] Specific gravity (U) [Rel density]1.000[facility] Urobilinogen (U) [Mass/Vol]0.2 mg/dLUniversity Hospitals Elyria Medical CenterLaboratory - Specimen informationon 57-93-7666Fnhbkbjatr (U)CloudyUniversity Hospitals Elyria Medical CenterColor (U)YellowUniversity Hospitals Elyria Medical CenterLaboratory - Urinalysison 57-04-3516Opbxmhozl esterase Test strip Ql (U)+++[facility] Medical CenterNitrite Ql (U)NegativeUniversity Hospitals Elyria Medical CenterProtein Ql (U)NegativeUniversity Hospitals Elyria Medical CenterNo Panel Informationon 10-23-2023 Urine Occult BloodNegativeCleveland Clinic [facility] Health Recordson 58-44-5075M[facility] [id number]#1.00TIFF [facility] HospitalNM Heart Perfusion W stress and W radionuclide [place] 47-31-9270Gjpxdblt Lexiscan Myoview cardiac perfusion stress test. No myocardial ischemia by perfusion imaging. No myocardial infarction by perfusion imaging. Abnormal left ventricular systolic function with mild global hypokinesis. Left ventricular ejection fraction 48 %. No previous studies are available for comparison. Signed by: Charlotte Cordon 10/14/2023 4:27 PM Dictation workstation: [id number] MMODALInterpreted By: Charlotte Cordon and Giannuzzi Michael STUDY: MYOCARDIAL PERFUSION STRESS TEST WITH LEXISCAN Performing facility: [facility], [address] [place] [address], [address], [address] Provider: Joey Morales MD, [facility] PCP: Dr. Marsha Best Supervising provider: Joey Cobb DO, [facility] INDICATION: CAD; CABG ICM SOB; HISTORY: Gender: F; Age: 78 y/o ; Height: HT 149.9 cm cm; Weight: WT 74.844 kg kg. High Cholesterol; CAD; Diabetes; Previous GA; HTN; SOB; Quit smoking 27 years ago. Cardiac catheterization on 2017. PTCA on 2017. CABG on 2017. COMPARISON: No comparison. ACCESSION NUMBER(S): [id number] ORDERING CLINICIAN: SHAHRZAD MORALES TECHNIQUE: ONE DAY [...] There was no evidence of attenuation artifact. MMODALCharlotte Cordon MD - 10/14/2023 Interpreted By: Charlotte Cordon and Giannuzzi Michael STUDY: MYOCARDIAL PERFUSION STRESS TEST WITH LEXISCAN Performing facility: [facility], [address] [place] [address], [address] Provider: Joey Morales MD, [facility] PCP: Dr. Marsha Best Supervising provider: Joey Cobb DO, [facility] INDICATION: CAD; CABG ICM SOB; HISTORY: Gender: F; Age: 78 y/o ; Height: HT 149.9 cm cm; Weight: WT 74.844 kg kg. High Cholesterol; CAD; Diabetes; Previous GA; HTN; SOB; Quit smoking 27 years ago. Cardiac catheterization on 2017. PTCA on 2017. CABG on 2017. COMPARISON: No comparison. ACCESSION NUMBER(S): [id number] ORDERING CLINICIAN: SHAHRZAD MORALES TECHNIQUE: ONE DAY [...] Charlotte Cordon 10/14/2023 4:27 PM Dictation workstation: [id number] [facility] Work Phone: Radiology Study observation (narrative)[facility] Work Phone: NM Heart Perfusion W stress and W radionuclide IV Ordered By: Charlotte Cordon on 23-05-7766YkigdugnqsUniversity Hospitals Portage Medical Center Work Phone: NUCLEAR STRESS TESTon 13-30-4906BYAMQJN STRESS TEST Interpreted By: Charlotte Cordon and Giannuzzi Michael STUDY: MYOCARDIAL PERFUSION STRESS TEST WITH LEXISCAN Performing facility: [facility], [address] [place] [address], [address], [place] [id number] [facility] Provider: Joey Morales MD, [facility] PCP: Dr. Marsha Best Supervising provider: Joey Cobb DO, [facility] INDICATION: CAD; CABG ICM SOB; HISTORY: Gender: F; Age: 78 y/o ; Height: HT 149.9 cm cm; Weight: WT 74.844 kg kg. High Cholesterol; CAD; Diabetes; Previous GA; HTN; SOB; Quit smoking 27 years ago. Cardiac catheterization on 2017. PTCA on 2017. CABG on 2017. COMPARISON: No comparison. ACCESSION NUMBER(S): [id number] ORDERING CLINICIAN: SHAHRZAD MORALES TECHNIQUE: ONE DAY [...] Charlotte Cordon 10/14/2023 4:27 PM Dictation workstation: [id number] Hospitals [facility]huja [facility] Center Health Recordson 06-60-7102Topr Health Records [id number]#1.00Beverly [facility] CenterRetail - Clinical Noteon 24-15-4436[employer] - Clinical Note [id number]#1.00TIFCarolyn [facility] Hospitalon 15-76-1762Uxvq Health Records [id number]#1.00TIFCarolyn [facility] Hospitalon 36-07-2297Sjsk Health Records [id number]#1.00TIFCarolyn [id number]#1.00TIFElis Tan [facility] Hospitalon 38-17-5872Qjtn Health Records [id number]#1.00TIFCarolyn [facility] Hospitalon 34-97-5086Wpqb Health Records [id number]#1.00TIFCarolyn [facility] Medical CenterECG 12-Leadon 16-10-8896FKZ 12-Lead [id number]#1.00TIFCarolyn [facility] Hospitalon 02-25-9045Ilgg Health Records [id number]#1.00TIFCarolyn [facility] Note-Physicianon 08-34-6708VV Note-Physician [id number]#1.00Beverly [facility] Medical CenterRAD - MISCon 88-55-4532GYH - MISC [id number]#1.00[facility] HospitalAmbulatory Visit Summaryon 25-69-8207Rtkxqjzvdx Visit Summary LEXI TATUM :1945 Visit Date:08/20/2023 [...] 3:40 PM EDT With: Maxine Sanchez Where: [facility] Medicine Office/Clinic Noteon 81-93-5152Oekonp Medicine Office/Clinic NoteChief Complaint Subsequent Medicare Wellness Visit Review of [...] of clutter to prevent tripping and/or falling. 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 Patient denies any problems with ADL?s [...] the provider if there would be a changeor concerns with symptoms with fear, unable to [...] by patient. 4. Pure hypercholesterolemia (E78.00: Pure hypercholesterolemia, unspecified) Reviewed healthy lifestyle with low fat diet and exercise regimen. When you are overweight our bodyproduces more lipids. Risk also increases with family history of hyperlipidemia and with monitoringalcohol use and avoid smoking. Patient voices understanding with importance of monitoring dietary intake to reduce risk factors associated with CVA. Taking rosuvastatin medications daily as directed. Will continue to follow up with office visits with updated labs as directed. 5. Diabetes (E11.9: Type 2 diabetes mellitus without complications) Patient is compliant on current DM medications: Metformin and insulin. Does monitors BS at home: DMstoplight handout reviewed with s/s to monitor f (more content not included)...[facility] HospitalComment on above:Result Comment: Electronically Signed By: Maxine Sanchez.mane\Date and Time Signed: 08/21/23 09:12 EST\.br\Electronically Co-Signed By: Rex Lyles\.br\Date and Time Co-Signed: 08/21/23 08:13 [facility] Office/Clinic NoteHPI Staff Lexi is a 77 year old [...] covering sliding scale and now needs order forHumalog. History of Present Illness pt presents today [...] EST, Weight Dosing HgbA1c Lab Specimen Collect 07700 3. 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 Diabetic peripheral neuropathy (E11.42: Type 2 diabetes mellitus with diabetic polyneuropathy) see above Pure hypercholesterolemia, unspecified (E78.00: Pure hypercholesterolemia, unspecified) cholesterol well controlled Follow-up No qualifying [...] virus vaccine, inactivated 07/03/2022 Recorded SARS-CoV-2 (COVID-19) mRNAMUL.ORD![id number] 06/17/2022 Re (more content not included)...[facility] HospitalComment on above:Result Comment: Electronically Signed By: Maxine Sanchez\.br\Date and Time Signed: 08/21/23 08:02 ESTFormson 91-33-8986Yosfp [id number]#1.00TIFFNormalRegency Hospital Cleveland WestHgbA1con 75-04-9075KtC4g (Bld) [Mass fraction]8.2 %High<=5.9[facility] Cleveland WestComment on above:Performed By: #### [id number] #### Dominick [facility] Laboratory [address], [place] [address]Eagwpas Educationon 22-24-8199Cqhavyr EducationCaregiving Fall Prevention in the Home, Adult Falls [...] night-lights. ? Place frequently used items in wyoc-se-cyncn places. Lower the shelves around your home [...] completely opened and that the sides and supportsare firmly locked. Have someone hold the ladder [...] you must use wax, make sure that itis non-skid floor wax. What can I do [...] to the stairs. Fix any carpet that isloose or worn. What can I do on [...] you can decrease your risk of falls. Thismay include working with a physical therapist or link trainer operator to improve your strength, balance, and endurance. Where to find more information ? Centers for Disease Control and Prevention, STEAD[place]: www.cdc.gov ? National [place] on Aging: www.jasmina.nih.gov Contact a health care [...] you by your health ca (more content notincluded)...[facility] HospitalAmbulatory Visit Summaryon 56-35-0805Jusjzcsywh Visit Summary LEXI TATUM :1945 Visit Date:08/20/2023 [...] 3:40 PM EDT With: Maxine Sanchez Where[facility] OhioAmbulatory Visit Summary LEXI TATUM :1945 Visit Date:08/20/2023 [...] you for choosing us for your care. [facility] HospitalPre-Visit Planningon 05-28-2023 Pre-Visit Planning From: Bibiana Walter To: Maxine Sanchez; Sent: [...] deficiency, Type 1 diabetes, gout, osteoarthritis, pure hypercholesterolemia. Based on your medical judgment, can you [...] feel free to contact me at extension [phone]. Thank you! Bibiana Walter LPN From: Maxine Sanchez To: Bibiana Walter; Sent: 05/28/2023 14:06:51 EST Subject: RE: Pre-Visit Planning Caller Name: LEXI TATUM; Caller Number: H , M chronic kidney disease stage 3, [id number] [facility]Pre[facility] Planning From: Bibiana Walter To: Maxine Sanchez; Sent: 05/20/2023 08:18:07 EST Subject: Pre-Visit Planning Due Date/Time: 05/20/2023 08:18:00 EST Caller Name: LEXI TATUM; Caller Number: H , M Fermín Goodman. During a pre-visit planning chart review, I noted the following documentation in the medical recordindicates that this patient had BMI of 39.36 [...] comorbidity in adult (please also include additional diagnosisto reflect current BMI) -Other (please specify): -Unable to determine In responding to this request, please exercise your independent professional judgment. The fact that a question is asked does not imply that any particular answer is desired or expected. If you have any questions, please feel free to contact me per TEAMS or . Thank you! Bibiana Walter LPN From: Maxine Sanchez To: Bibiana Walter; Sent: 05/28/2023 13:26:36 EST Subject: RE: Pre-Visit Planning Caller Name: LEXI TATUM; Caller Number: Giovanni , M class 3 obesity with Type 1 diabetes and synnvjgekvvldsyuvwtkSzhqeo720 [facility] HospitalAmbulatory Visit Summaryon 62-19-6419Tvkskuwcfy Visit Summary LEXI TATUM :1945 Visit Date:05/21/2023 [...] 11:00 AM EST With: Maxine Sanchez Where: [facility] Family Medicine Office/Clinic Noteon 63-16-4675Qmkbxx Medicine Office/Clinic NoteHPI Staff Lexi is a 77 year old [...] 3 months. Ordered: HgbA1c Lab Specimen Collect [id number] 2. 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 Former smoker (Z87.891: Personal history of [...] virus vaccine, inactivated 07/03/2022 Recorded SARS-CoV-2 (COVID-19) mRNAMUL.ORD![id number] 06/17/2022 Recorded 2023-02-10: TPV75 SARS-CoV-2 (COVID-19) mRNA [...] inactivated 05/16/2017 Recorded pneumococcal 13-valent vaccine 10/30/2016 RecordedNormalRegency Hospital Cleveland WestComment on above:Result Comment: Electronically Signed By: Maxine Sanchez\.br\Date and Time Signed: 05/21/23 13:14 UVYQxsJ8cut 18-97-2612HlO0e (Bld) [Mass fraction]8.7 %High<=5.9Reg[facility] Hospital Cleveland WestComment on above: Performed By: #### [id number] #### Dominick [facility] [address], [place] [address]Vreshklevp Visit Summaryon 21-26-2479Pkikwqtnqu Visit Summary LEXI TATUM :1945 Visit Date:03/05/2023 [...] Appointments Friday 1:00 PM EDT With: Where: [facility]Normal[address] [place] [address]- \.br\ Medications\.br\ What How Much When Why Instructions\.br\ Unchanged allopurinol (allopurinol 300 mg Tab) 1 Tablets By Mouth Every day\.br\ Unchanged aspirin (aspirin 81 mg Oral EC Tab) Oral \.br\ Unchanged carvedilol (carvedilol 25 mg Tab) Oral \.br\ Unchanged cholecalciferol (cholecalciferol 1000 intl units oral capsule) 1 Capsules ByMouth Every day Oral \.br\ Unchanged cholecalciferol (cholecalciferol 5000 intl units oral capsule)1 Capsules By Mouth Every day with food [...] Mouth Every day\.br\ Allergies\.br\ atorvastatin (Myalgia)\.br\ pravastatin (Unknown)\.br\Problems\.br\ Ongoing - Any problem that you are currently receiving treatment for.\.br\ CKD (chronic kidney disease)\.br\ Diabetic peripheral neuropathy\.br\ Flank pain\.br\ Gout\.br\ Osteoarthritis\.br\ Pure hypercholesterolemia\.br\ Type 1 diabetes\.br\ Urinary incontinence\.br\ Vitamin D deficiency\.br\ Wellness examination\.br\ \.br\[facility] Medicine Office/Clinic Noteon [id number] Medicine Office/Clinic NoteHPI Staff Lexi lagos a 77 year old female presenting for follow up diabetes Do you have any of the following symptoms? Last A1C: Hgb A1C %: 10.9 % High (02/10/23 12:11:00) Statin: rosuvastatin 5mg questions/concerns: pt brought blood pressure log with her. she states she hasn't been feeling welllost about 6 pounds and now she has [...] it is on the rise in the [facility]. discussed recent lab results. discussed kidney function and the fact that uncontrolled diabetes is affecting her kidneys and other organs. she states I will do better with my diet and manage my insulin a little better. Will repeat HGBA1C in May at next visit. pt to continue BS log. may consider referral to professional tutor at that visit. 2. Flank pain (R10.9: [...] virus vaccine, inactivated 07/03/2022 Recorded SARS-CoV-2 (COVID-19) mRNAMUL.ORD![id number] 06/17/2022 Recorded 2023-02-10: TPV75 SARS-CoV-2 (COVID-19) mRNA [...] inactivated 05/16/2017 Recorded pneumococcal 13-valent vaccine 10/30/2016 RecordedAshtabula General HospitalComment on above:Result Comment: Electronically Signed By: Maxine Sanchez.mane\Date and Time Signed: 03/05/23 14:10 EDTCHEMISTRYOrdered By: SYSTEM SYSTEM on [id number]-dczlkbgrfpqclx D3 [Mass/Vol]52.9 ng/wSCmfvxa00.0 - 100.0 ng/mLFTMC RemisolAlbumin [Mass/Vol]3.6 g/dLNormal3.3 - 5.0 gm/dLFTMC Remisol Albumin/Globulin [Mass ratio]1.0 {ratio}Low1.1 - 2.2[facility] RemisolALP [Catalytic activity/Vol]57 [iU]/bIoyaeg89 - 98 Int._Unit/LFTMC RemisolALT No additional P-5'-P [Catalytic activity/Vol]12 [iU]/dNormal6 - 46 Int._Unit/LFTMC Remisol Anion gap [Moles/Vol]15 mmol/LNormal6 - 16 mEq/LFTMC RemisolAST [Catalytic activity/Vol]18 [iU]/dNormal5 - 43 Int._Unit/LFTMC RemisolBilirubin [Mass/Vol] 0.5 mg/dLNormal0.0 - 1.1 mg/dLFTMC RemisolCalcium [Mass/Vol]9.8 mg/dLNormal8.9 - 11.1 mg/dLFT RemisolChloride [Moles/Vol]98 mmol/RDjl514 - 111 mmol/LFTMC RemisolCholesterol [Mass/Vol]196 mg/gBYcgxre130 - 200 mg/dLFTMC Remisol Cholesterol in HDL [Mass/Vol]50 mg/dLInvalid Interpretation CodeFTMC Remisol Cholesterol in LDL [Mass/Vol]106 mg/dLNormal<=129mg/dLFTMC RemisolCholesterol in VLDL [Mass/Vol]44 mg/dLHigh7 - 40 mg/dLFT RemisolCO2 [Moles/Vol]28 mmol/L Sejjyf79 - 31 mmol/LFTMC RemisolCreatinine [Mass/Vol]1.4 mg/dLHigh0.5 - 1.3 mg/dLFTMC RemisolGFR/1.73 sq M.predicted among non-blacks MDRD (S/P/Bld) [Vol rate/Area]39 mL/min/1.73 m2Low>=59mL/min/1.73 m2FTMC Chem SGlobulin (S) [Mass/Vol]3.6 g/dLNormal1.4 - 4.0 gm/dLFTMC RemisolGlucose [Mass/Vol]235 mg/dL High55 - 199 mg/dLFTMC RemisolPotassium [Moles/Vol]4.0 mmol/LNormal3.5 - 5.3 mmol/LFTMC RemisolProtein [Mass/Vol]7.2 g/dLNormal6.0 - 7.8 gm/dLFTMC Remisol Sodium [Moles/Vol]137 mmol/SFxgrum996 - 145 mmol/LFTMC RemisolTriglyceride [Mass/Vol]218 mg/dLHigh<=149mg/dLFTMC RemisolTSH Qn1.79 m[IU]/LNormal0.34 - 5.60 mcIU/mLFTMC RemisolUrea nitrogen [Mass/Vol]23 mg/dLHigh5 - 21 mg/dLFTMC Remisol Urea nitrogen/Creatinine [Mass ratio]16 mg/glFpvqoy89 - 20FT[facility] RemisolCHEMISTRY Ordered By: Natalio Guerrero on 51-55-5670JgW2x (Bld) [Mass fraction]10.9 %High <=5.9%[facility] ChemAutoSSHEMATOLOGYOrdered By: SYSTEM SYSTEM on 02-10-2023 Basophils/100 WBC (Bld)0.4 %Normal0.0 - 2.0 %[facility] HemeAutoSSBasophils/Leukocytes Auto (Bld) [Pure # fraction]0.0 E9/LNormal0.0 - 0.2 E9/LFTMC HemeAutoSS Eosinophils/100 WBC (Bld)2.6 %Normal0.0 - 8.0 %[facility] HemeAutoSS Eosinophils/Leukocytes Auto (Bld) [Pure # fraction]0.2 E9/LNormal0.0 - 0.5 E9/L [facility] HemeAutoSSLymphocytes/100 WBC (Bld)23.0 %Eegbnv73.0 - 50.0 %[facility] HemeAutoSS Lymphocytes/Leukocytes Auto (Bld) [Pure # fraction]1.8 E9/LNormal1.0 - 4.0 E9/L [facility] HemeAutoSSMonocytes/100 WBC (Bld)6.6 %Normal4.0 - 14.0 %[facility] HemeAutoSS Monocytes/Leukocytes Auto (Bld) [Pure # fraction]0.5 E9/LNormal0.2 - 1.0 E9/L [facility] HemeAutoSSNeutrophils/100 WBC (Bld)67.4 %Halwur24.0 - 75.0 %[facility] HemeAutoSS Neutrophils/Leukocytes Auto (Bld) [Pure # fraction]5.1 E9/LNormal2.0 - 7.5 E9/L [facility] HemeAutoSSHEMATOLOGYOrdered By: Natalio Guerrero on 67-26-4829Zkvtdcwbhbb distribution width (RBC) [Ratio]16.0 %High10.9 - 14.2 %[facility] HemeAutoSSHematocrit (Bld) [Volume fraction]40.5 %Ekulik74.0 - 46.0 %[facility] HemeAutoSSHemoglobin (Bld) [Mass/Vol]13.5 g/gSRpiyoh26.0 - 16.0 gm/dLFTMC HemeAutoSSMCH (RBC) [Entitic mass]31.7 zeUhodmx44.0 - 34.0 pgFTMC HemeAutoSSMCHC (RBC) [Mass/Vol]33.3 g/dL Kazlkn30.4 - 36.0 gm/dLFTMC HemeAutoSSMCV (RBC) [Entitic vol]95.4 tFEjexxb35.0 - 100.0 fLFTMC HemeAutoSSPlatelet mean volume (Bld) [Entitic vol]10.1 fLNormal6.4 - 10.8 fLFTMC HemeAutoSSPlatelets (Bld) [#/Vol]192.0 E9/ZXcilsi863.0 - 500.0 E9/LFTMC HemeAutoSSRBC (Bld) [#/Vol]4.2 E12/LLow4.3 - 5.9 E12/LFTMC HemeAutoSS WBC corrected for nucl RBC Auto (Bld) [#/Vol]7.6 E9/LNormal4.0 - 11.0 E9/LFTMC HemeAutoSSOffice Visit (Cardiology)on 22-92-5270Vjqzwb-up visit Diagnoses/Problems Assessed S/P CABG x 3 (V45.81) (Z95.1) Ischemic cardiomyopathy (414.8) (I25.5) Hyperlipidemia (272.4) (E78.5) HTN (hypertension) (401.9) (I10) History of angioplasty (V45.89) (Z98.62) History of Dyslipidemia (272.4) (E78.5) CAD, multiple vessel (414.00) (I25.10) History of GA (myocardial infarction) (412) (I25.2) Statin intolerance (995.27) [...] - Retrospective Authorization; Done: 25Jul2022 History of GA (myocardial infarction), HTN (hypertension) Renew: Carvedilol 25 [...] History of angioplasty (V45.89) (Z98.62) History of GA (myocardial infarction) (412) (I25.2) HTN (hypertension) (401.9) [...] shortness of breath. Gastrointe (more content not included)...NormalUH TouchworksTobacco Screening.on 96-09-7904Mqbgv depression screening xzzwroqzwaKaWJ-Tdjsuuearb-Ewcltvzj 250 DO Work Phone: Fall risk assessmenta) No falls within the last year [facility]-Edtgtpktzh-Qebioiqx 250 DO Work Phone: Tobacco use status CPHSb) AjYR-Nsifozmetr-Itgtadxz 250 DO Work Phone: [facility] AUTO DIFFon 53-28-4701WSVZ #0.0 103/ulNormal 0.0-0.1Access Hospital DaytonComment on above:Performed By: #### CBC #### [facility] [address] [address] [address] Yarely Bustillosophils/100 WBC (Bld)0.4 %Normal0.2-2.0The [facility] Comment on above:Performed By: #### CBC #### [facility] [address] [address] [address] Yarely Martins #0.2 103/ulNormal0.0-0.7The [facility] HospitalComment on above: Performed By: #### CBC #### [facility] [address] [address] [address] Yarely Angelaosinophils/100 WBC (Bld)2.3 %Normal0.9-7.0The [facility] Comment on above:Performed By: #### CBC #### [facility] [address] [place] [address] Dr. Yarely Angelarythrocyte distribution width (RBC) [Ratio]14.8 %Qdxjfb93.0-15.0 The [facility] HospitalComment on above:Performed By: #### CBC #### [facility] [address] [place] [address] Dr. Yarely RoeHematocrit (Bld) [Volume fraction]42.0 %Aknnmr74.0-48.0The [facility] HospitalComment on above:Performed By: #### CBC #### [facility] [address] [place] [address] Dr. Yarely RoeHemoglobin (Bld) [Mass/Vol]13.7 g/cJHtfeii14.0-16.0The [facility] Hospitalment on above:Performed By: #### CBC #### [facility] [address] [place] [address] Dr. Yarely Christie #0.03 10e3/ulNormal0.00-0.03The [facility] Hospitalment on above:Performed By: #### CBC #### [facility] [address] [place] [address] Dr. Yarely Christie %0.4 %Normal0.0-0.5The [facility] Hospitalment on above: Performed By: #### CBC #### [facility] [address] [place] [address] Dr. Yarely JassoH #1.7 103/ulNormal1.2-3.8The [facility] on above:Performed By: #### CBC #### [facility] [address] [place] [address] Dr. Yarely Metcalfmphocytes/100 WBC (Bld)20.7 %Ttnioq47.5-60.0The [facility]iera HospitalComment on above:Performed By: #### CBC #### [facility] [address] [address] [address] Yarely Silverman DIFF REQNONormalThe [facility] HospitalComment on above: Performed By: #### CBC #### [facility] [address] [address] [address] Yarely Denny (RBC) [Entitic mass]31.9 dfCjrgsc66.7-34.0The [facility] HospitalComment on above:Performed By: #### CBC #### [facility] [address] [place] [address] Dr. Yarely Denny (RBC) [Mass/Vol]32.6 g/dSNhjvos69.9-35.2The [facility] HospitalComment on above:Performed By: #### CBC #### [facility] [address] [place] [address] Dr. Yarely Denny (RBC) [Entitic vol]97.7 tOTesrki48.0-99.0The [facility] HospitalComment on above:Performed By: #### CBC #### [facility] [address] [place] [address] Dr. Yarely Lucero #0.5 103/ulNormal0.3-0.8The [facility] HospitalComment on above:Performed By: #### CBC #### [facility] [address] [place] [address] Dr. Yarely Sureshocytes/100 WBC (Bld)5.9 %Normal1.7-12.0The [facility] Comment on above:Performed By: #### CBC #### [facility] [address] [place] [address] Dr. Yarely Jimenez #5.7 103/ulNormal1.4-6.5The [facility] HospitalComment on above:Performed By: #### CBC #### [facility] [address] [place] [address] Dr. Yarely Riderutrophils/100 WBC (Bld)70.3 %Fquvus68.0-75.0The [facility] on above:Performed By: #### CBC #### [facility] [address] [address] [address] Yarely RoePlatelet mean volume (Bld) [Entitic vol]11.0 fLNormal9.5-13.5The [facility] HospitalComment on above:Performed By: #### CBC #### [facility] [address] [place] [address] Dr. Yarely RoePLT196 103/wwEmhqek417-291Lxr [facility] HospitalCommunson healthcare [facility] on above: Performed By: #### CBC #### [facility] [address] [place] [address] Dr. Yarely RoeRBC4.30 106/ulNormal4.20-5.40The [facility] on above:Performed By: #### CBC #### [facility] [address] [place] [address] Dr. Yarely RoeWBC8.1 103/ulNormal4.0-11.0The [facility] on above: Performed By: #### CBC #### [facility] [address] [place] [address] Dr. Yarely RoeGLYCOHEMOGLOBIN A1Con 55-11-6665TKE RECOMMENDATIONSEE BELOWNormMercy Health Lorain HospitalCommunson healthcare gray[facility] hospital on above:Result Comment: ADA RECOMMENDED LIMIT 4.0 - 6.0 ADA THERAPEUTIC TARGET < 7.0 ACTION SUGGESTED > 7.0Performed By: #### A1C #### [facility] [address] [place] [address] Dr. Yarely RoeGlucose [Mass/Vol]223 mg/dLNormalThOhioHealth Dublin Methodist HospitalCommunson healthcare [facility] on above:Performed By: #### A1C #### [facility] [address] [place] [address] Dr. Yarely RoeHbA1c (Bld) [Mass fraction]9.4 %Critically high4.5-6.2The [facility] on above:Performed By: #### A1C #### [facility] [address] [place] [address] Dr. Yarely AbreuF CHEM 8 (BAS METB)on 10-81-2318Bpcnc gap [Moles/Vol]13.4 mmol/LNormalAccess Hospital DaytonComment on above:Performed By: #### BMP #### [facility] [address] [address] [address] Yarely RoeCalcium [Mass/Vol]9.5 mg/dLNormal8.5-10.1The [facility] Comment on above:Performed By: #### BMP #### [facility] [address] [address] [address] Yarely RoeChloride [Moles/Vol]101 mmol/MKmoysw52-822Eqj [facility] Comment on above:Performed By: #### BMP #### [facility] [address] [address] [address] Yarely RoeCO2 [Moles/Vol]28.6 mmol/HCebeli47.0-32.0The [facility] Comment on above:Performed By: #### BMP #### [facility] [address] [address] [address] Yarely RoeCreatinine [Mass/Vol]1.46 mg/dLCritically high0.55-1.02The [facility] HospitalComment on above:Performed By: #### BMP #### [facility] [address] [address] [address] Pritchett ChangEGFR-AF CAOTYMDG65 mL/min/1.68v1Qhhmxcurmb low>=60The [facility] HospitalComment on above:Performed By: #### BMP #### [facility] [address] [address] [address] Yarely AngelaGFR-NON AF ZHWTTMLD42 mL/min/1.94m6Xsdrhhypuc low>=60The [facility] HospitalComment on above:Performed By: #### BMP #### [facility] [address] [address] [address] Yarely RoeGlucose [Mass/Vol]288 mg/dLCritically idle75-107Ajb [facility] HospitalComment on above:Performed By: #### BMP #### [facility] [address] [address] [address] Yarely RoePotassium [Moles/Vol]4.0 mmol/LNormal3.5-5.1The [facility] Comment on above:Performed By: #### BMP #### [facility] [address] [address] [address] Yarely RoeSodium [Moles/Vol]139 mmol/QOhvlrz662-688AevAccess Hospital Dayton Comment on above:Performed By: #### BMP #### [facility] [address] [address] [address] Yarely RoeUrea nitrogen [Mass/Vol]27.0 mg/dLCritically high7.0-18.0The [facility] HospitalComment on above:Performed By: #### BMP #### [facility] [address] [address] [address] Yarely RoeUrea nitrogen/Creatinine [Mass ratio]18.5 mg/mgNormalThe [facility] HospitalComment on above:Performed By: #### BMP #### [facility] [address] [address] [address] Yarely RoePROF CHEM 8 (BAS METB)on 20-63-0150Smhlu gap [Moles/Vol]11.9 mmol/LNormalAccess Hospital DaytonComment on above:Performed By: #### BMP #### [facility] [address] [address] [address] Yarely RoeCalcium [Mass/Vol]9.1 mg/dLNormal8.5-10.1[facility] Comment on above:Performed By: #### BMP #### [facility] [address] [address] [address] Yarely RoeChloride [Moles/Vol]100 mmol/VIcncyu33-250Fxf [facility] Comment on above:Performed By: #### BMP #### [facility] [address] [address] [address] Yarely RoeCO2 [Moles/Vol]30.8 mmol/QXlxtkv26.0-32.0The [facility] Comment on above:Performed By: #### BMP #### [facility] [address] [address] [address] Yarely RoeCreatinine [Mass/Vol]1.27 mg/dLCritically high0.55-1.02The [facility] HospitalComment on above:Performed By: #### BMP #### [facility] [address] [address] [address] Pritchett ChangEGFR-AF XLYNUZEZ47 mL/min/1.76t2Xcqprdgbsf low>=60The [facility] HospitalComment on above:Performed By: #### BMP #### [facility] [address] [address] [address] Yarely AngelaGFR-NON AF GSGZLGXP93 mL/min/1.37i6Ggwbrjgzsr low>=60The [facility] HospitalComment on above:Performed By: #### BMP #### [facility] [address] [address] [address] Yarely RoeGlucose [Mass/Vol]166 mg/dLCritically wlyl06-909Tno [facility] HospitalComment on above:Performed By: #### BMP #### [facility] [address] [address] [address] Yarely RoePotassium [Moles/Vol]3.7 mmol/LNormal3.5-5.1[facility] Comment on above:Performed By: #### BMP #### [facility] [address] [address] [address] Yarely RoeSodium [Moles/Vol]139 mmol/HHhpjdz346-617Gyq [facility] Comment on above:Performed By: #### BMP #### [facility] [address] [address] [address] Yarely RoeUrea nitrogen [Mass/Vol]20.0 mg/dLCritically high7.0-18.0The [facility] on above:Performed By: #### BMP #### [facility] [address] [address] [address] Yarely RoeUrea nitrogen/Creatinine [Mass ratio]15.7 mg/mgNormalThe [facility] HospitalComment on above:Performed By: #### BMP #### [facility] [address] [address] [address] Yarely Chapa Visit (Cardiology)on 86-84-5640Qajvzi-up visit Diagnoses/Problems Assessed Hyperlipidemia (272.4) (E78.5) Ischemic cardiomyopathy (414.8) (I25.5) HTN (hypertension) (401.9) (I10) History of GA (myocardial infarction) (412) (I25.2) CAD, multiple vessel [...] Metabolic Panel; Status:Active - Retrospective Authorization; Requested for:[id number]; CAD, multiple vessel, Hyperlipidemia Renew: Rosuvastatin Calcium [...] have and also mitigate the h ypokalemia. We discussed and reviewed in great detail [...] Way; 07/12/2021 2:24:53 PM (more content not included)...NormalUH TouchworksTobacco Screening.on 11-02-2021 Adult depression screening assessmentNoColumbia Basin Hospital [employer] DO Work Phone: Fall risk assessmenta) No falls within the last year [facility] [employer] DO Work Phone: Tobacco use status CPHSb) NoMVirginia Mason Health System ITeam DO Work Phone: XR LSPINE MIN 4 VIEWSon [phone] LSPINE MIN 4 VIEWSEXAMINATION: XR LSPINE MIN 4 VIEWS HISTORY: Left [...] Vascular calcifications. Right pelvic vascular stent. IMPRESSION: Vils-uo-pzzsycxa degenerative changes with minimal anterolisthesis of L4 and L5 Electronically authenticated by: ALISSA RAMIREZ Date: 2021-10-16 07:05[facility] HealthcareCB AUTO DIFFon [id number] #0.0 103/ulNormal0.0-0.1Access Hospital DaytonComment on above:Performed By: #### CBC #### [facility] [address] [place] [address] Dr. Yilan ChangBasophils/100 WBC (Bld)0.3 %Normal0.2-2.0The [facility] Comment on above:Performed By: #### CBC #### [facility] [address] [place] [address] Dr. Yarely Martins #0.3 103/ulNormal0.0-0.7The [facility] HospitalComment on above: Performed By: #### CBC #### [facility] [address] [place] [address] Dr. Yarely Angelaosinophils/100 WBC (Bld)3.4 %Normal0.9-7.0The [facility] Comment on above:Performed By: #### CBC #### [facility] [address] [place] [address] Dr. Yarely Angelarythrocyte distribution width (RBC) [Ratio]15.1 %Critically high 11.0-15.0The [facility] HospitalComment on above:Performed By: #### CBC #### [facility] [address] [place] [address] Dr. Yarely RoeHematocrit (Bld) [Volume fraction]42.1 %Sjrype34.0-48.0The [facility] HospitalComment on above:Performed By: #### CBC #### [facility] [address] [place] [address] Dr. Yarely RoeHemoglobin (Bld) [Mass/Vol]13.5 g/uXKmyyzo24.0-16.0The [facility] HospitalComment on above:Performed By: #### CBC #### [facility] [address] [place] [address] Dr. Yarely Christie #0.04 10e3/ulCritically high0.00-0.03The [facility] Comment on above:Performed By: #### CBC #### [facility] [address] [place] [address] Dr. Yarely Christie %0.4 %Normal0.0-0.5The [facility] HospitalComment on above: Performed By: #### CBC #### [facility] [address] [place] [address] Dr. Yarely Thompson #2.1 103/ulNormal1.2-3.8The [facility] HospitalComment on above:Performed By: #### CBC #### [facility] [address] [place] [address] Dr. Yarely Metcalfmphocytes/100 WBC (Bld)22.9 %Gcxgbl14.5-60.0The [facility] HospitalComment on above:Performed By: #### CBC #### [facility] [address] [place] [address] Dr. Yarely Silverman DIFF REQNONormalThe [facility] HospitalComment on above: Performed By: #### CBC #### [facility] [address] [place] [address] Dr. Yarely Denny (RBC) [Entitic mass]31.5 wwCroajy76.7-34.0The [facility] HospitalComment on above:Performed By: #### CBC #### [facility] [address] [place] [address] Dr. Yarely Denny (RBC) [Mass/Vol]32.1 g/hBEifvrm26.9-35.2The [facility] HospitalComment on above:Performed By: #### CBC #### [facility] [address] [place] [address] Dr. Yarely Denny (RBC) [Entitic vol]98.1 sCMptwyd88.0-99.0The [facility] HospitalComment on above:Performed By: #### CBC #### [facility] [address] [place] [address] Dr. Yarely Lucero #0.6 103/ulNormal0.3-0.8The [facility] HospitalComment on above:Performed By: #### CBC #### [facility] [address] [place] [address] Dr. Yarely Sureshocytes/100 WBC (Bld)6.1 %Normal1.7-12.0The [facility] Comment on above:Performed By: #### CBC #### [facility] [address] [place] [address] Dr. Yarely RiderUT #6.2 103/ulNormal1.4-6.5The [facility] HospitalComment on above:Performed By: #### CBC #### [facility] [address] [place] [address] Dr. Yarely Riderutrophils/100 WBC (Bld)66.9 %Gzjaux34.0-75.0The [facility] HospitalComment on above:Performed By: #### CBC #### [facility] [address] [place] [address] Dr. Yarely RoePlatelet mean volume (Bld) [Entitic vol]10.9 fLNormal9.5-13.5The [facility] HospitalComment on above:Performed By: #### CBC #### [facility] [address] [place] [address] Dr. Yarely RoePLT220 103/fpDlkyaf599-307Vpk [facility] HospitalComment on above: Performed By: #### CBC #### [facility] [address] [place] [address] Dr. Yarely RoeRBC4.29 106/ulNormal4.20-5.40The [facility] HospitalCommunson [facility] on above:Performed By: #### CBC #### [facility] [address] [place] [address] Dr. Yarely RoeWBC9.2 103/ulNormal4.0-11.0The [facility] HospitalComment on above: Performed By: #### CBC #### [facility] [address] [place] [address] Dr. Yarely RoeGLYCOHEMOGLOBIN A1Con [id number] RECOMMENDATIONADA THERAPEUTIC TARGET 6.0 - 7.0 ACTION SUGGESTED > 7.0NoWilson Memorial HospitalCommunson healthcare [facility] on above:Performed By: #### A1C #### [facility] [address] [place] [address] Dr. Yarely RoeGlucose [Mass/Vol]183 mg/dLNoWilson Memorial HospitalComment on above:Performed By: #### A1C #### [facility] [address] [address] [address] Yarely RoeHbA1c (Bld) [Mass fraction]8.0 %Critically high<=6.0The [facility] HospitalComment on above:Performed By: #### A1C #### [facility] [address] [place] [address] Dr. Yarely RoePROF 14(COMP METB)on 06-71-3319Dnegqlt [Mass/Vol]3.4 g/dLNormal 3.4-5.0The [facility] HospitalComment on above:Performed By: #### CMP #### [facility] [address] [place] [address] Dr. Yarely RoeAlbumin/Globulin [Mass ratio]0.8 {ratio}NormalThe [facility]ers HospitalComment on above:Performed By: #### CMP #### [facility] [address] [place] [address] Dr. Yarely BarbosaP [Catalytic activity/Vol]59 U/VZegjno52-519Akc [facility] HospitalComment on above:Performed By: #### CMP #### [facility] [address] [place] [address] Dr. Yarely BarbosaT [Catalytic activity/Vol]9 U/LCritically dnt31-36Rij [facility] HospitalComment on above:Performed By: #### CMP #### [facility] [address] [place] [address] Dr. Yarely [place] gap [Moles/Vol]11.3 mmol/LNormalThe [facility] Comment on above:Performed By: #### CMP #### [facility] [address] [place] [address] Dr. Yarely RoeAST [Catalytic activity/Vol]15 U/MUyophb90-32Gho [facility] HospitalComment on above:Performed By: #### CMP #### [facility] [address] [place] [address] Dr. Yarely RoeBilirubin [Mass/Vol]0.3 mg/dLNormal0.2-1.3The [facility] Comment on above:Performed By: #### CMP #### [facility] [address] [address] [address] Yarely RoeCalcium [Mass/Vol]9.4 mg/dLNormal8.5-10.1The [facility] Comment on above:Performed By: #### CMP #### [facility] [address] [address] [address] Yarely RoeChloride [Moles/Vol]97 mmol/LCritically vqt75-104Zui [facility] HospitalComment on above:Performed By: #### CMP #### [facility] [address] [address] [address] Yarely RoeCO2 [Moles/Vol]33.0 mmol/LCritically high22.0-30.0The [facility] HospitalComment on above:Performed By: #### CMP #### [facility] [address] [place] [address] Dr. Yarely RoeCreatinine [Mass/Vol]1.40 mg/dLCritically high0.52-1.04The [facility] HospitalComment on above:Performed By: #### CMP #### [facility] [address] [place] [address] Dr. Yarely AngelaGFR-AF OWGBFUEC91 mL/min/1.32w4Hdmcudqxvz low>=60The [facility] HospitalComment on above:Performed By: #### CMP #### [facility] [address] [place] [address] Dr. Yarely AngelaGFR-NON AF YHNZUFZY39 mL/min/1.78b1Wgpjjtmtmn low>=60The [facility] HospitalComment on above:Performed By: #### CMP #### [facility] [address] [address] [address] Yarely RoeGlobulin (S) [Mass/Vol]4.3 g/dLNormalThe [facility] HospitalComment on above:Performed By: #### CMP #### [facility] [address] [address] [address] Yarely RoeGlucose [Mass/Vol]224 mg/dLCritically ywob22-908Sxi [facility] HospitalComment on above:Performed By: #### CMP #### [facility] [address] [address] [address] Yarely RoePotassium [Moles/Vol]3.3 mmol/LCritically low3.4-5.0The [facility] HospitalComment on above:Performed By: #### CMP #### [facility] [address] [address] [address] Yarely RoeProtein [Mass/Vol]7.7 g/dLNormal6.1-8.2[facility] Comment on above:Performed By: #### CMP #### [facility] [address] [address] [address] Yarely oReSodium [Moles/Vol]138 mmol/ZZphbns471-525Yoq [facility] Comment on above:Performed By: #### CMP #### [facility] [address] [address] [address] Yarely RoeUrea nitrogen [Mass/Vol]27.0 mg/dLCritically high7.0-18.0The [facility] HospitalComment on above:Performed By: #### CMP #### [facility] [address] [address] [address] Yarely RoeUrea nitrogen/Creatinine [Mass ratio]19.3 mg/mgNormalThe [facility] HospitalComment on above:Performed By: #### CMP #### [facility] [address] [address] [address] [facility]SA[facility] Carotid Artery Duplex Ultrasounon [id number] LAB Carotid Artery Duplex Ultrasoun[address], [address] [place] [address] Vascular Lab Report Carotid Artery Duplex Ultrasound Patient Name: LEXI CASTILLO Reading Physician: [id number] Charlotte Cordon MD, [facility] Study Date: 05/08/2020 Referring Physician: [id number] Shahrzad Morales MD MRN/PID: [id number] PCP: Li Lee Accession/Order#: [id number] CC Report to: Date of : 1945 Technologist: Surekha Hartley RDCS, RVT Gender: F Technologist 2: Admission Status: Outpatient Location Performed: [facility] Diagnosis/ICD: R09.89-Other specified symptoms and signs involving the circulatory and respiratory systems Indication: Diabetes, Hyperlipidemia, Former Smoker, Vertigo, CAD, CABG, Ischemic Cardiomyopathy, PTCA, GA, Obesity Procedure/CPT: 68638 Cerebrovascular Carotid Duplex scan complete-85710 CONCLUSIONS: Right Carotid: Findings are consistent with [...] 50% stenosis of the left proximal ICA. Laminarflow seen by color Doppler. Left external carotid [...] cm/s Right Left ICA/CCA Ratio 2.2 0.9 [id number] Charlotte Cordon MD, FACC Final NormalSt. Anthony HospitalHEMOGLOBIN A1Con [id number] (Bld) [Mass fraction]7.5 %NormalSt. Anthony HospitalComment on above:Result Comment: Diagnosis of Diabetes-Adults Non-Diabetic: < or = 5.6% Increased risk for developing diabetes: 5.7-6.4% Diagnostic of diabetes: > or = 6.5% . Monitoring of Diabetes Age (y) Therapeutic Goal (%) Adults: >18 <7.0 Pediatrics: 13-18 <7.5 7-12 <8.0 0- 6 7.5-8.5 [employer]. Diabetes Care 33(S1), Jul 2009.Performed By: #### HBA1E #### [facility] [address] [place], [place] [address]JbR9h (Bld) [Mass fraction]169 MG/DLNormalUH Palm Bay Community HospitalComment on above:Performed By: #### HBA1E #### [facility] [address] [place], [place] [address]VFGqe [id number] [Catalytic activity/Vol]18 U/LNormal9 - 39St. Anthony HospitalComment on above:Order Comment: Patient states she had black coffee this a.m.Performed By: #### AST #### [address] [address]PTOZRPXDUUHXJ PANELon 34-34-5134Twruljs [Mass/Vol]4.1 g/dLNormal 3.4 - 5.0St. Anthony HospitalComment on above:Performed By: #### CMP #### [address] [address]HOP [Catalytic activity/Vol]62 U/ZGgrdga23 - 136St. Anthony HospitalComment on above:Performed By: #### CMP #### [address] [address]VAB [Catalytic activity/Vol]12 U/LNormal7 - 45UH [facility] Community HospitalComment on above:Result Comment: Patients treated with Sulfasalazine may generate falsely decreased results for ALT.Performed By: #### CMP #### [address] [address]Ciebq gap [Moles/Vol]13 mmol/INhpssk62 - 20UH [facility] HospitalComment on above:Performed By: #### CMP #### [address] [address]EEF [Catalytic activity/Vol]16 U/LNormal9 - 39St. Anthony HospitalComment on above:Performed By: #### CMP #### [address] [address]Bulovcpas [Mass/Vol]0.5 mg/dLNormal0.0 - 1.2UH [facility] HospitalComment on above:Performed By: #### CMP #### [address] [address]Knyfmff [Mass/Vol]9.8 mg/dLNormal8.6 - 10.3UH [facility] HospitalComment on above:Performed By: #### CMP #### [address] [address]Ghztbdyd [Moles/Vol]103 mmol/ZPjdwjv13 - 107St. [facility] HospitalComment on above:Performed By: #### CMP #### [address] [address]Ryrpzwdfwt [Mass/Vol]1.32 mg/dLHigh0.50 - 1.05UH [facility] HospitalComment on above:Performed By: #### CMP #### [address] [address]NEC-YXJXEQB AM.47 mL/min/1.57z0Nbkhpckv>60St. Anthony HospitalComment on above:Result Comment: CALCULATIONS OF ESTIMATED GFR ARE PERFORMED USING THE MDRD STUDY EQUATION FOR THE IDMS-TRACEABLE CREATININE METHODS. CLIN CHEM 2007;53:766-72Performed By: #### CMP #### [address] [address]ZCG-WVO AM.39 mL/min/1.47t2Moptwfbs>60St. Anthony HospitalComment on above:Performed By: #### CMP #### [address] [address]Pmpjpxt [Mass/Vol]115 mg/aPMujw71 - 99[facility] Comment on above:Performed By: #### CMP #### [address] [address]YLJ7 (Bld) [Moles/Vol]25 mmol/NJbhlxg32 - 32St. [facility] HospitalComment on above:Performed By: #### CMP #### [address] [address]Mpyekghmn [Moles/Vol]5.4 mmol/LHigh3.5 - 5.3[facility] HospitalComment on above:Performed By: #### CMP #### [address] [address]Adncymc [Mass/Vol]7.5 g/dLNormal6.4 - 8.2[facility] HospitalComment on above:Performed By: #### CMP #### [address] [address]Xwfjxt [Moles/Vol]136 mmol/ONrlmik039 - 145St. Anthony HospitalComment on above:Performed By: #### CMP #### [address] [address]Kcht nitrogen [Mass/Vol]40 mg/dLHigh6 - 23St. [facility] HospitalComment on above:Performed By: #### CMP #### [address] [address]JFYOK PANEL (CORONARY RISK 2)on 09-65-0802Nzyksdaotyr [Mass/Vol] 182 mg/dLNormal0 - 199St. Anthony HospitalComment on above:Order Comment: Patient states she had black coffee this a.m.Result Comment: . AGE DESIRABLE BORDERLINE HIGH HIGH [...] should be performed immediately prior to Metamizole dosing.Performed By: #### LIPID #### [address] [address]Qfczehheryi in HDL [Mass/Vol]39.0 mg/dLAbnoSt. Anthony Summit Medical CenterComment on above:Order Comment: Patient states she had black coffee this a.m.Result Comment: . AGE VERY LOW LOW NORMAL HIGH 0-19 Y < 35 < 40 40-45 ---- 20-24 Y ---- < 40 >45 ---- >24 Y ---- < 40 40-60 >60 .Performed By: #### LIPID #### [address] [address]Ymktoaqielv in LDL [Mass/Vol]92 mg/dLNormal0 - 99St. [facility] HospitalComment on above:Order Comment: Patient states she had black coffee this a.m.Result Comment: . NEAR BORD AGE DESIRABLE OPTIMAL HIGH HIGH VERY HIGH 0-19 Y 0 - 109 --- 110-129 >/= 130 ---- 20-24 Y 0 - 119 --- 120-159 >/= 160 ---- >24 Y 0 - 99 100-129 130-159 160-189 >/=190 .Performed By: #### LIPID #### [address] [address]Xpxncoiqfnk in VLDL [Mass/Vol]51 mg/dLHigh0 - 40St. Anthony HospitalComment on above:Order Comment: Patient states she had black coffee this a.m.Performed By: #### LIPID #### [address] [address]Tzrokuotrjx.total/Cholesterol in HDL [Mass ratio]4.7 {ratio} NormalSt. Anthony HospitalComment on above:Order Comment: Patient states she had black coffee this a.m.Result Comment: REF VALUES DESIRABLE < 3.4 HIGH RISK > 5.0Performed By: #### LIPID #### [address] [address]BMD-ATC PFGCKGYUPVM353 mg/dLNoCaroMont Healthyria [facility] Center Comment on above:Order Comment: Patient states she had black coffee this a.m. Result Comment: AGE DESIRABLE BORDERLINE HIGH HIGH VERY HIGH 0-19 Y 0 - 119 120 - 144 >/= 145 >/= 160 20-24 Y 0 - 149 150 - 189 >/= 190 ---- >24 Y 30 MG/DL ABOVE LDL CHOLESTEROL GOAL .Performed By: #### LIPID #### [address] [address]Yctpwqjrkcqy [Mass/Vol]255 mg/dLHigh0 - 149St. Anthony HospitalComment on above:Order Comment: Patient states she had black coffee this a.m.Result Comment: . AGE DESIRABLE BORDERLINE HIGH HIGH [...] should be performed immediately prior to Metamizole dosing.Performed By: #### LIPID #### [address] [address] Vital Signs Date TimeVital SignValuePerforming WvphxthxeXxzmnerx70-48-0517 11:15-0400 Diastolic blood fzlpnqpy22 mm[Hg]Stefan Best MD Work Phone: [facility]09-27-2025 11:15-0400 Heart rate70 /Lisa Best MD Work Phone: [facility]09-27-2025 11:15-0400 Respiratory rate16 /Lisa Best MD Work Phone: [facility]09-27-2025 11:15-0400 SaO2% (BldA) [Mass fraction]97 %Stefan Best MD Work Phone: [facility]09-27-2025 11:15-0400 Systolic blood ypszqzpv768 mm[Hg]Stefan Best MD Work Phone: 1(122)[address] [place], [place] 4945909-27-2025 08:00-0400 Body yhbjtxswken24.2 [degF]Stefan Best MD Work Phone: 1(979)[address] [place], [place] 4945909-27-2025 08:00-0400 Inhaled oxygen flow rate2 L/minStefan Best MD Work Phone: 1(122)[address] [place], [place] 4945909-27-2025 06:34-0400 Body usaone50.9 kgStefan Best MD Work Phone: 1(974)[address] [place], [place] 4945909-25-2025 23:39-0400 Body gmntes741.86 cmStefan Best MD Work Phone: 1(797)[address] [place], [place] 4945909-22-2025 11:30-0400 Body lsxqebgammb32.8 [degF]Stefan Best MD Work Phone: 1(089)[address] [place], [place] 4945909-22-2025 11:30-0400 Diastolic blood xibvphjf55 mm[Hg]Stefan Best MD Work Phone: 1(114)[address] [place], [place] 4945909-22-2025 11:30-0400 Heart rate80 /Lisa Best MD Work Phone: 1(591)[address] [place], [place] 4945909-22-2025 11:30-0400 Respiratory rate16 /Lisa Best MD Work Phone: 1(403)[address] [place], [place] 4945909-22-2025 11:30-0400 SaO2% (BldA) [Mass fraction]95 %Stefan Best MD Work Phone: 1(149)[address] [place], [place] 4945909-22-2025 11:30-0400 Systolic blood ksysmjlv837 mm[Hg]Stefan Best MD Work Phone: 1(734)[address] [place], [place] 4945909-21-2025 05:22-0400 Body yabwmo63.6 kgStefan Best MD Work Phone: 1(189)[address] [place], [place] 4945909-09-2025 18:10-0400 Body .86 cmStefan Best MD Work Phone: 1(526)[address] [place], [place] 4945909-09-2025 15:53-0400 Body yolrmujtufs29.6 [degF]Stefan Best MD Work Phone: 1(456)[address] [place], [place] 4945909-09-2025 15:53-0400 Diastolic blood tqeejaxz79 mm[Hg]Stefan Best MD Work Phone: 1(831)[address] [place], [place] 4945909-09-2025 15:53-0400 Heart rate61 /Lisa Best MD Work Phone: 1(994)[address] [place], [place] 4945909-09-2025 15:53-0400 Respiratory rate16 /Lias Best MD Work Phone: 1(486)[address] [place], [place] 4945909-09-2025 15:53-0400 SaO2% (BldA) [Mass fraction]94 %Stefan Best MD Work Phone: 1(830)[address] [place], [place] 4945909-09-2025 15:53-0400 Systolic blood seswfllc417 mm[Hg]Stefan Best MD Work Phone: 1(492)[address] [place], [place] 4945909-09-2025 05:03-0400 Body potrsb96.7 kgStefan Best MD Work Phone: 1(810)[address] [place], [place] 4945909-08-2025 15:25-0400 Inhaled oxygen flow rate3 L/Lisa Best MD Work Phone: 1(893)[address] [place], [place] 4945909-08-2025 11:06-0400 Body xindtu534.86 cmStefan Best MD Work Phone: 1(077)[address] [place], [place] 4945908-27-2025 14:50-0400 Diastolic blood wlybsnik04 mm[Hg]Stefan Best MD Work Phone: 1(495)[address] [place], [place] 4945908-27-2025 14:50-0400 Systolic blood aktlrzpq683 mm[Hg]Stefan Best MD Work Phone: 1(838)[address] [place], [place] 4945907-29-2025 15:38-0400 Body ppswui348.86 cmStefan Bset MD Work Phone: [phone]07-29-2025 15:38-0400 Body mass index (BMI) [Ratio]31.7 kg/a5VlxawtStefan Best MD Work Phone: 1(062)728-[address] [place], [place] 9737807-29-2025 15:38-0400 Body .21 kgStefan Best MD Work Phone: 1(066)[address]07-29-2025 15:38-0400 Diastolic blood aemejozn53 mm[Hg]Stefan Best MD Work Phone: 1(358)[address]07-29-2025 15:38-0400 Heart rate69 /Lisa Best MD Work Phone: 1(992)[address]07-29-2025 15:38-0400 Respiratory rate16 /Lisa Best MD Work Phone: 1(968)[address]07-29-2025 15:38-0400 SaO2% (BldA) [Mass fraction]96 %Stefan Best MD Work Phone: 1(648)[address]07-29-2025 15:38-0400 Systolic blood grjylchr350 mm[Hg]Stefan Best MD Work Phone: 1(323)[address]07-21-2025 15:30-0400 Body .86 cmStefan Best MD Work Phone: 1(088)[address]07-21-2025 15:30-0400 Body mass index (BMI) [Ratio]31.7 kg/e0JtgpnlStefan Best MD Work Phone: 1(155)[address]07-21-2025 15:30-0400 Body eglylk71.21 kgStefan Best MD Work Phone: 1(126)[address]07-21-2025 15:30-0400 Diastolic blood mxgdmgox23 mm[Hg]Stefan Best MD Work Phone: 1(134)[address]07-21-2025 15:30-0400 Heart rate76 /Lisa Best MD Work Phone: 1(110)[address]605 [address]07-21-2025 15:30-0400 Systolic blood mm[Hg]Stefan Best MD Work Phone: 1(283)[address] [place], [place] 4945907-01-2025 15:20-0400 Body jaxsbq754.86 cmStefan Best MD Work Phone: 1(142)[address] [place], [place] 4945907-01-2025 15:20-0400 Body mass index (BMI) [Ratio]33.3 kg/a1PajypcStefan Best MD Work Phone: 1(267)[address] [place], [place] 4945907-01-2025 15:20-0400 Body lniqwb94.84 kgStefan Best MD Work Phone: 1(527)[address] [place], [place] 4945907-01-2025 15:20-0400 Diastolic blood oltmkogp01 mm[Hg]Stefan Best MD Work Phone: 1(954)[address] [place], [place] 4945907-01-2025 15:20-0400 Heart rate72 /Lisa Best MD Work Phone: 1(616)[address] [place], [place] 4945907-01-2025 15:20-0400 SaO2% (BldA) [Mass fraction]99 %Stefan Best MD Work Phone: 1(126)[address] [place], [place] 4945907-01-2025 15:20-0400 Systolic blood mm[Hg]Stefan Best MD Work Phone: 1(489)[address] [place], [place] 4945904-11-2025 10:09-0400 Diastolic blood yxnzwrzm34 mm[Hg]Stefan Best MD Work Phone: 1(252)[address] [place], [place] 4945904-11-2025 10:09-0400 Heart rate62 /Lisa Best MD Work Phone: 1(721)[address] [place], [place] 4945904-11-2025 10:09-0400 Respiratory rate16 /Lisa Best MD Work Phone: 1(305)[address] [place], [place] 4945904-11-2025 10:09-0400 SaO2% (BldA) [Mass fraction]95 %Stefan Best MD Work Phone: 1(809)[address]04-11-2025 10:09-0400 Systolic blood widlvrua452 mm[Hg]Stefan Best MD Work Phone: 1(958)[address] [place], [place] 4945904-11-2025 09:24-0400 Body cedxdnusjwu84.2 [degF]Stefan Best MD Work Phone: 1(160)[address] [place], [place] 4945904-11-2025 09:24-0400 Inhaled oxygen flow rate6 L/mintSefan Best MD Work Phone: 1(880)[address] [place], [place] 4945904-11-2025 06:33-0400 Body rsoacp442.86 cmStefan Best MD Work Phone: 1(401)[address] [place], [place] 4945904-11-2025 06:33-0400 Body maqnca21.84 kgStefan Best MD Work Phone: 1(434)[address] [place], [place] 4945903-24-2025 15:31-0400 Body .86 cmStefan Best MD Work Phone: 1(047)[address] [place], [place] 4945903-24-2025 15:31-0400 Body mass index (BMI) [Ratio]33.3 kg/z7AwfzgkStefan Best MD Work Phone: 1(258)[address] [place], [place] 4945903-24-2025 15:31-0400 Body jtvfax90.84 kgStefan Best MD Work Phone: 1(838)[address] [place], [place] 4945903-24-2025 15:31-0400 Diastolic blood irupstzg88 mm[Hg]Stefan Best MD Work Phone: 1(403)[address] [place], [place] 4945903-24-2025 15:31-0400 Heart rate71 /Lisa Best MD Work Phone: 1(171)[address] [place], [place] 4945903-24-2025 15:31-0400 Respiratory rate12 /Lisa Best MD Work Phone: 1(699)[address] [place], [place] 4945903-24-2025 15:31-0400 SaO2% (BldA) [Mass fraction]96 %Stefan Best MD Work Phone: [phone]03-24-2025 15:31-0400 Systolic blood ejszjxse849 mm[Hg]Stefan Best MD Work Phone: [phone]01-29-2025 15:39-0500 Diastolic blood rdfhjeri42 mm[Hg]Angela Braun 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 Work Phone: [phone]01-29-2025 15:39-0500 Systolic blood ackjermh461 mm[Hg]Angela Braun 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 Work Phone: 1(429)901-[address] [place], [place] 9612301-29-2025 15:23-0500 Body nuptem818.9 cmAngela Braun 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 Work Phone: 1(349)[address]01-29-2025 15:23-0500 Body mass index (BMI) [Ratio]33.33 kg/g6VovqmAngela Braun 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 Work Phone: 1(163)[address] [place], [place] 9612301-29-2025 15:23-0500 Body .84 kgAngela Braun 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 Work Phone: 1(456)354-[address] [place], [place] 9612301-29-2025 15:23-0500 Heart rate54 /Christopher Braun 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 Work Phone: [phone]01-21-2025 11:09-0500 Body helgto900.86 cmStefan Best MD Work Phone: [phone]01-21-2025 11:09-0500 Diastolic blood eysixgha88 mm[Hg]Stefan Best MD Work Phone: [phone]01-21-2025 11:09-0500 Heart rate66 /Lisa Best MD Work Phone: [phone]01-21-2025 11:09-0500 Respiratory rate16 /Lisa Best MD Work Phone: [phone]01-21-2025 11:09-0500 SaO2% (BldA) [Mass fraction]96 %Stefan Best MD Work Phone: 1(119)[address] [place], [place] 4945901-21-2025 11:09-0500 Systolic blood dapyjzhx137 mm[Hg]Stefan Best MD Work Phone: 1(369)[address] [place], [place] 4945912-19-2024 11:08-0500 Body oeqmkw264.86 cmStefan Best MD Work Phone: 1(395)[address] [place], [place] 4945912-19-2024 11:08-0500 Body mass index (BMI) [Ratio]33.3 kg/b7AlihbvStefan Best MD Work Phone: 1(865)[address] [place], [place] 4945912-19-2024 11:08-0500 Body ceopcm57.84 kgStefan Best MD Work Phone: 1(483)[address] [place], [place] 4945912-19-2024 11:08-0500 Diastolic blood ffaqshqd00 mm[Hg]Stefan Best MD Work Phone: 1(992)[address] [place], [place] 4945912-19-2024 11:08-0500 Heart rate78 /minStefan Best MD Work Phone: 1(626)[address] [place], [place] 4945912-19-2024 11:08-0500 SaO2% (BldA) [Mass fraction]96 %Stefan Best MD Work Phone: 1(115)[address] [place], [place] 4945912-19-2024 11:08-0500 Systolic blood dqgmopme747 mm[Hg]Stefan Best MD Work Phone: 1(867)[address] [place], [place] 4945912-16-2024 10:38-0500 Body pibxck191.86 cmStefan Best MD Work Phone: 1(764)[address] [place], [place] 4945912-16-2024 10:38-0500 Body mass index (BMI) [Ratio]33.3 kg/x6MvoznvStefan eBst MD Work Phone: 1(736)[address] [place], [place] 4945912-16-2024 10:38-0500 Body kvliao13.84 kgStefan Best MD Work Phone: 1(490)[address] [place], [place] 4945912-12-2024 10:140500 Body bxybfw564.86 cmStefan Best MD Work Phone: 1(833)[address] [place], [place] 4945912-12-2024 10:140500 Body ayhatadnclw91.1 [degF]Stefan Best MD Work Phone: 1(383)[address] [place], [place] 4945912-12-2024 10:140500 Body .84 kgStefan Best MD Work Phone: 1(128)[address] [place], [place] 4945912-12-2024 10:14-0500 Diastolic blood jykwyufk12 mm[Hg]Stefan Best MD Work Phone: 1(743)[address] [place], [place] 4945912-12-2024 10:14-0500 Heart rate66 /Lisa Best MD Work Phone: 1(055)[address] [place] 4945912-12-2024 10:14-0500 Respiratory rate14 /Lisa Best MD Work Phone: 1(144)[address] [place], [place] 4945912-12-2024 10:14-0500 SaO2% (BldA) [Mass fraction]97 %Stefan Best MD Work Phone: 1(508)[address] [place], [place] 4945912-12-2024 10:14-0500 Systolic blood vjewbpqw124 mm[Hg]Stefan Best MD Work Phone: 1(630)[address] [place], [place] 4945911-22-2024 10:02-0500 Diastolic blood ywjijgys84 mm[Hg]Stefan Best MD Work Phone: 1(001)[address] [place], [place] 4945911-22-2024 10:02-0500 Heart rate67 /Lisa Best MD Work Phone: 1(366)[address] [place], [place] 4945911-22-2024 10:02-0500 Respiratory rate20 /Lisa Best MD Work Phone: 1(065)[address] [place], [place] 4945911-22-2024 10:02-0500 SaO2% (BldA) [Mass fraction]97 %Stefan Best MD Work Phone: 1(991)[address] [place], [place] 4945911-22-2024 10:02-0500 Systolic blood hmezrlha721 mm[Hg]Stefan Best MD Work Phone: 1(831)[address] [place], [place] 4945911-22-2024 09:12-0500 Body xwywjwawmxi06.2 [degF]Stefan Best MD Work Phone: 1(759)[address] [place], [place] 4945911-22-2024 07:28-0500 Body afhgii695.86 cmStefan Best MD Work Phone: 1(291)[address] [place], [place] 4945911-22-2024 07:28-0500 Body labgtt18.84 kgStefan Best MD Work Phone: 1(782)[address] [place], [place] 4945911-07-2024 10:00-0500 Body yrwzug469.86 cmStefan Best MD Work Phone: 1(863)[address] [place], [place] 4945911-07-2024 10:00-0500 Body mass index (BMI) [Ratio]33.3 kg/u9TbapeaStefan Best MD Work Phone: 1(066)[address] [place], [place] 4945911-07-2024 10:00-0500 Body laalyx19.84 kgStefan Best MD Work Phone: 1(073)[address] [place], [place] 4945911-07-2024 10:00-0500 Diastolic blood ahpcnoij72 mm[Hg]Stefan Best MD Work Phone: 1(605)[address] [place], [place] 4945911-07-2024 10:00-0500 Heart rate65 /minStefan Best MD Work Phone: 1(468)[address] [place], [place] 4945911-07-2024 10:00-0500 SaO2% (BldA) [Mass fraction]96 %Stefan Best MD Work Phone: 1(711)[address] [place], [place] 4945911-07-2024 10:00-0500 Systolic blood phtxsufc425 mm[Hg]Stefan Best MD Work Phone: 1(404)[address] [place], [place] 4945909-09-2024 14:23-0400 Body .86 cmMD Stefan Best Work Phone: 1(991)[address] [place], [place] 4945909-09-2024 14:23-0400 Body mass index (BMI) [Ratio]33.3 kg/m2MD Stefan Best Work Phone: 1(306)[address] [place], [place] 4945909-09-2024 14:23-0400 Body wbtcyhnynxg86.7 [degF]MD Stefan Best Work Phone: 1(631)[address] [place], [place] 4945909-09-2024 14:23-0400 Body xwojgm17.84 kgMD Stefan Best Work Phone: 1(250)[address] [place], [place] 4945909-09-2024 14:23-0400 Diastolic blood ppdwavjc55 mm[Hg]MD Stefan Best Work Phone: 1(494)[address] [place], [place] 4945909-09-2024 14:23-0400 Heart rate76 /minMD Stefan Best Work Phone: 1(520)[address] [place], [place] 4945909-09-2024 14:23-0400 Respiratory rate16 /minMD Stefan Best Work Phone: 1(907)[address] [place], [place] 4945909-09-2024 14:23-0400 SaO2% (BldA) [Mass fraction]97 %MD Stefan Best Work Phone: 1(528)[address] [place], [place] 4945909-09-2024 14:23-0400 Systolic blood jyfwhjwi979 mm[Hg]MD Stefan Best Work Phone: 1(050)[address] [place], [place] 4945908-23-2024 13:28-0400 Body gssyht150.86 cmMD Stefan Best Work Phone: 1(594)[address] [place], [place] 4945908-23-2024 13:28-0400 Body mass index (BMI) [Ratio]33.3 kg/m2MD Stefan Best Work Phone: 1(553)[address] [place], [place] 4945908-23-2024 13:28-0400 Body .84 kgMD Stefan Best Work Phone: 1(090)[address] [place], [place] 4945908-23-2024 13:28-0400 Diastolic blood wibgvtkh08 mm[Hg]MD Stefan Best Work Phone: 1(243)[address]08-23-2024 13:28-0400 Heart rate74 /minMD Stefan Best Work Phone: [facility]08-23-2024 13:28-0400 Systolic blood lvyrkloc958 mm[Hg]MD Stefan Best Work Phone: [facility]08-18-2024 17:00-0400 Hourly RoundingMbanefo OJUKWU [address]08-18-2024 17:00-0400 Promise to ReturnMbanefo OJUKWU [address] [place], [place] 6878308-18-2024 16:00-0400 Diastolic blood vwjwmovm75 mm[Hg]Mbanefo OJUKWU [address] [place], [place] 6878308-18-2024 16:00-0400Heart rate80 /minMbanefo OJUKWU [address]08-18-2024 16:00-0400 Hourly RoundingMbanefo OJUKWU [address] [place], [place] 1296708-18-2024 16:00-0400Mean blood mrhyampv73 mm[Hg]Mbanefo OJUKWU [address] [place], [place] 6878308-18-2024 16:00-0400 Promise to ReturnMbanefo OJUKWU [address] [place], [place] 1296708-18-2024 16:00-0400 Respiratory rate16 /minMbanefo OJUKWU [address] [place], [place] 6878308-18-2024 16:00-0439WpV2% (BldA) [Mass fraction]98 %Mbanefo OJUKWU [address] [place], [place] 1296708-18-2024 16:00-0400 Systolic blood dqmaunqe227 mm[Hg]Mbanefo OJUKWU [address] [place], [place] 6878308-18-2024 15:22-0400 Respiratory rate18 /minMbanefo OJUKWU [address] [place], [place] 6878308-18-2024 15:22-5486RxK1% (BldA) [Mass fraction]92 %Mbanefo OJUKWU [address] [place], [place] 1296708-18-2024 15:22-1548FcD4% (BldA) [Mass fraction]91 %Mbanefo OJUKWU [address] [place], [place] 6878308-18-2024 15:00-0400 Hourly RoundingMbanefo OJUKWU [address] [place], [place] 6878308-18-2024 15:00-0400 Promise to ReturnMbanefo OJUKWU [address] [place], [place] 6878308-18-2024 11:18-0400gluc 137 mg/dLMbanefo OJUKWU [address] [place], [place] 6878308-18-2024 10:52-0400Heart rate72 /minMbanefo OJUKWU [address] [place], [place] 6878308-18-2024 10:49-0400 Diastolic blood ozndgwlm69 mm[Hg]Mbanefo OJUKWU [address] [place], [place] 6878308-18-2024 10:49-0400Mean blood mm[Hg]Mbanefo OJUKWU [address] [place], [place] 1296708-18-2024 10:49-0400 Systolic blood mm[Hg]Mbanefo OJUKWU [address] [place], [place] 6878308-18-2024 10:49-0400Body scgximnjuxz21.24 [degF]Mbanefo OJUKWU [address] [place], [place] 6878308-18-2024 07:55-0400gluc 130 mg/dLMbanefo OJUKWU [address] [place], [place] 6878308-18-2024 07:40-0400 Respiratory rate18 /minMbanefo OJUKWU [address] [place], [place] 6878308-18-2024 07:38-0400Heart rate73 /minOlesyaanefo OJUKWU [address] [place], [place] 6878308-18-2024 07:36-0400Blood Pressure LocationMbanefo OJUKWU [address] [place], [place] 6878308-18-2024 07:36-0400 Diastolic blood ldnunqfs49 mm[Hg]Mbanefo OJUKWU [address] [place], [place] 6878308-18-2024 07:36-0400Mean blood poxjtlnw60 mm[Hg]Mbanefo OJUKWU [address] [place], [place] 6878308-18-2024 07:36-0400 Systolic blood bkzdebml583 mm[Hg]Mbanefo OJUKWU [address] [place], [place] 6878308-18-2024 07:35-0400Body uhgqyajubny74.06 [degF]Mbanefo OJUKWU [address] [place], [place] 6878308-18-2024 03:30-0400Body idyczdqfomu40.34 [degF]Mbanefo OJUKWU [address] [place], [place] 6878308-18-2024 03:30-0400Mean blood fpvnetek37 mm[Hg]Mbanefo OJUKWU [address] [place], [place] 6878308-17-2024 19:00-0400Body hemniobauju13.78 [degF]Mbanefo OJUKWU [address] [place], [place] 6878308-17-2024 17:47-0400gluc 118 mg/dLMbanefo OJUKWU [address] [place], [place] 6878308-17-2024 17:16-0400Mean blood yyykyivw68 mm[Hg]Mbanefo OJUKWU [address] [place], [place] 6878308-17-2024 14:00-0400Body sbcdplduwdl473.04 [degF]Mbanefo OJUKWU [address] [place], [place] 6878308-17-2024 14:00-0400Mean blood gewhgtwk63 mm[Hg]Mbanefo OJUKWU [address] [place], [place] 6878308-17-2024 10:00-0400Heart rate73 /minMbanefo OJUKWU [address] [place], [place] 6878308-16-2024 03:33-0400 Respiratory rate17 /minMbanefo OJUKWU [address] [place], [place] 6878308-15-2024 23:49-0400 Respiratory rate16 /minMbanefo OJUKWU [address] [place], [place] 6878308-15-2024 19:00-0400 Respiratory rate20 /minMbanefo OJUKWU [address] [place], [place] 1296708-15-2024 17:35-0400gluc Mbanefo OJUKWU [address] [place], [place] 6878308-15-2024 17:30-0400Heart rate78 /minMbanefo OJUKWU [address] [place], [place] 6878307-30-2024 15:35-0400Blood Pressure LocationGregory COOK [facility]07-30-2024 15:35-0400Diastolic blood xnnzgliu21 mm[Hg]Yaniv NATARAJAN [facility]07-30-2024 15:35-0400Heart rate78 /minYaniv NATARAJAN [facility]07-30-2024 15:35-0400Respiratory rate16 /minYaniv NATARAJAN [facility]07-30-2024 15:35-0400Systolic blood lyrjokcd343 mm[Hg]Yaniv NATARAJAN [facility]07-23-2024 15:29-0400Body rptcuk588.86 cmMD Stefan Best Work Phone: [facility]07-23-2024 15:29-0400 Body mass index (BMI) [Ratio]33.3 kg/m2MD Stefan Best Work Phone: [facility]07-23-2024 15:29-0400 Body .84 kgMD Stefan Best Work Phone: [facility]07-23-2024 15:29-0400 Diastolic blood qztvialt30 mm[Hg]MD Stefan Best Work Phone: [facility]07-23-2024 15:29-0400 Heart rate72 /minMD Stefan Best Work Phone: [facility]07-23-2024 15:29-0400 Systolic blood afdndntm283 mm[Hg]MD Stefan Best Work Phone: [facility]07-14-2024 12:00-0400 Body lzucrbwgyfw25.6 [degF]MD Stefan Best Work Phone: [facility]07-14-2024 12:00-0400 Diastolic blood xzqhivfp23 mm[Hg]MD Stefan Best Work Phone: 1(205)764-[address] [place], [place] 9737807-14-2024 12:00-0400 Heart rate80 /minMD Stefan Best Work Phone: 1(355)[address]07-14-2024 12:00-0400 Respiratory rate18 /minMD Stefan Bset Work Phone: 1(614)[address]07-14-2024 12:00-0400 SaO2% (BldA) [Mass fraction]92 %MD Stefan Best Work Phone: 1(699)[address]07-14-2024 12:00-0400 Systolic blood oloaqssc070 mm[Hg]MD Stefan Best Work Phone: 1(450)[address]07-14-2024 05:31-0400 Body ahxuul80 kgMD Stefan Best Work Phone: 1(399)[address]07-13-2024 12:17-0400 Inhaled oxygen flow rate2 L/minMD Stefan Best Work Phone: 1(706)[address]07-12-2024 16:29-0400 Body rtryvb660.86 cmMD Stefan Best Work Phone: 1(422)[address] [place], [place] 4945907-12-2024 16:29-0400 Body mass index (BMI) [Ratio]34.5 kg/m2MD Stefan Best Work Phone: 1(598)[address]07-01-2024 16:11-0400 Body .86 cmMD Stefan Best Work Phone: 1(627)[address]07-01-2024 16:11-0400 Body mass index (BMI) [Ratio]33.3 kg/m2MD Stefan Best Work Phone: 1(490)[address]07-01-2024 16:11-0400 Body uskakzvekex15.4 [degF]MD Stefan Best Work Phone: 1(100)[address]07-01-2024 16:11-0400 Body .84 kgMD Stefan Best Work Phone: 1(085)415-60[facility]07-01-2024 16:11-0400 Diastolic blood kfichtig61 mm[Hg]MD Stefan Best Work Phone: 1(766)521[facility]96[facility]07-01-2024 16:11-0400 Heart rate82 /minMD Stefan Best Work Phone: 1(939)[address]07-01-2024 16:11-0400 Respiratory rate16 /minMD Stefan Best Work Phone: 1(167)[address]07-01-2024 16:11-0400 SaO2% (BldA) [Mass fraction]97 %MD Stefan Best Work Phone: 1(799)[address]07-01-2024 16:11-0400 Systolic blood zlauutca019 mm[Hg]MD Stefan Best Work Phone: 1(420)[address]05-30-2024 15:50-0400 Body .86 cmMD Stefan Best Work Phone: 1(856)[address]05-30-2024 15:50-0400 Body mass index (BMI) [Ratio]33.7 kg/m2MD Stefan Best Work Phone: 1(871)[address]05-30-2024 15:50-0400 Body zlwutw26.74 kgMD Stefan Best Work Phone: 1(716)[address]05-30-2024 15:50-0400 Diastolic blood ychvdxfx66 mm[Hg]MD Stefan Best Work Phone: 1(540)[address]05-30-2024 15:50-0400 Heart rate87 /minMD Stefan Best Work Phone: 1(007)[address]05-30-2024 15:50-0400 Systolic blood vbudilti149 mm[Hg]MD Stefan Best Work Phone: 1(768)[address]05-16-2024 13:56-0400 Body nssepj563.86 cmMD Stefan Best Work Phone: [facility]05-16-2024 13:56-0400 Body mass index (BMI) [Ratio]33.9 kg/m2MD Stefan Best Work Phone: [facility]05-16-2024 13:56-0400 Body .2 kgMD Stefan Best Work Phone: [facility]05-16-2024 13:56-0400 Diastolic blood xkhkpbeo50 mm[Hg]MD Stefan Best Work Phone: [facility]05-16-2024 13:56-0400 Heart rate76 /minMD Stefan Best Work Phone: [facility]05-16-2024 13:56-0400 Systolic blood mm[Hg]MD Stefan Best Work Phone: [facility]04-02-2024 13:33-0400 Diastolic blood fznmyymi72 mm[Hg]Margie [address] [place] [address] 10-14-2023 13:33-0400Heart rate78 /minEly [address] [place] [address] 10-14-2023 13:33-0400Systolic blood gvimlkxl333 mm[Hg]Margie [address] [place], [place] 5575803-06-2024 13:07-0500Body gzafgr144.9 cmShahrzad Morales MD Work Phone: [facility]03-06-2024 13:07-0500 Body mass index (BMI) [Ratio]33.33 kg/d8UgblnsuShahrzad Morales MD Work Phone: [facility]03-06-2024 13:07-0500 Body kkqjie24.84 kgShahrzad Morales MD Work Phone: [facility]03-06-2024 13:07-0500 Diastolic blood umonswkn56 mm[Hg]Shahrzad Morales MD Work Phone: [facility]03-06-2024 13:07-0500 Heart rate84 /minShahrzad Padillan MD Work Phone: [facility]03-06-2024 13:07-0500 Systolic blood hpmkyhjk692 mm[Hg]Shahrzad Morales MD Work Phone: [facility]02-27-2024 15:18-0500 Body ivdwbu587.86 cm[facility]02-27-2024 15:18-0500Body mass index (BMI) [Ratio]33.3 kg/o8TagcomozsUniversity [facility]als [facility]02-27-2024 15:18-0500Body qytuqs57.84 kgUniversity [facility]02-27-2024 15:18-0500Diastolic blood bhufebhl06 mm[Hg][facility] 09-09-2023 15:18-0500Heart rate86 /minUniversity [facility] 09-09-2023 15:18-0500Systolic blood pwivcipk540 mm[Hg][facility]01-31-2024 13:00-0500Body heightRobert Blake II Other [employer] Other 01-31-2024 13:00-0500Body hlnrto962.86 cmUniversity [facility]05-02-2023 15:30-0400Body heightThomas Felter Other [employer] Other 05-02-2023 15:30-0400Body mass index (BMI) [Ratio] 33.32 kg/d6Cbjbzn Felter Other [employer] Other 05-02-2023 15:30-0400Body mvrelq01.84 kgThomas Felter Other [employer] Other 01-12-2023 15:55-0500Body jnandn040.86 cmLi Lee Work Phone: 1(637) [phone]-Kdkylbusxf-Mayuri 250 DO Work Phone: 1(924) 587-926001-12-2023 15:55-0500Body mass index (BMI) [Ratio] 34.94 kg/m2Kijohn E DEMANDIT Work Phone: mp208-1876FX-Jrpeccwjgp-[place] 250 DO Work Phone: 1(918) 625-794701-12-2023 15:55-0500Body surface area Derived from formula1.73 m2Kim E DEMANDIT Work Phone: 1(818) [phone]-Zukpvjeffr-[place] 250 DO Work Phone: 1(234) 868-995301-12-2023 15:55-0500Body atrvrp66.47 kgKim E DEMANDIT Work Phone: 1(342) 409-8831197-0426YM-Mmjvjvnysz-[place] 250 DO Work Phone: 1(619) 298-205201-12-2023 15:55-0500Diastolic blood ilfowkpp17 mm[Hg] Li Conley DEMANDIT Work Phone: 1(519) [phone]-Raalfmrgdh-[place] 250 DO Work Phone: 1(589) 391-299301-12-2023 15:55-0500Heart rate66 /minKim E DEMANDIT Work Phone: 1(635) [phone]-Wibqdwtded-[place] 250 DO Work Phone: 1(375) 945-137201-12-2023 15:55-0500Systolic blood grmeidmr494 mm[Hg] Li Conley DEMANDIT Work Phone: mp129-7029HS-Lntmlherde-[place] 250 DO Work Phone: 1(597) 744-253204-22-2022 13:16-0400Body .86 cmKim E DEMANDIT Work Phone: 1(425) [phone]-Bbihm [facility] 250 DO Work Phone: 1(621) 248-826904-22-2022 13:16-0400Body mass index (BMI) [Ratio] 34.54 kg/m2Kim E DEMANDIT Work Phone: 1(823) [phone]-Thxfo [facility] 250 DO Work Phone: 1(224) 395-741104-22-2022 13:16-0400Body surface area Derived from formula1.73 m2Kim E DEMANDIT Work Phone: 1(654) [phone]-Zelat [facility]-[place]uri 250 DO Work Phone: 1(264) 142-450404-22-2022 13:16-0400Body kzgezj33.57 kgKijohn Lee Work Phone: mp726-5728QN-Cffcs [facility] 250 DO Work Phone: 1(330) 368-991304-22-2022 13:16-0400Diastolic blood youqcgsf41 mm[Hg] Li Lee Work Phone: 1(758) [phone]-Hxffq [facility] 250 DO Work Phone: 1(497) 318-649604-22-2022 13:16-0400Heart rate66 /minKim Yael Lee Work Phone: 1(733) [phone]-Xniao [facility] 250 DO Work Phone: 1(662) 461-555704-22-2022 13:16-0400Systolic blood mm[Hg] Li Yael Lee Work Phone: 1(597) [phone]-Rppez [facility] 250 DO Work Phone: Encounters Encounter DateEncounter TypeCare ProviderFacilityStart: 05-20-2025 End: 08-52-5952Cukbnpgpz encounterRohini Manley APRN-[facility] Work Phone: [facility] Pulmonary/Sleep MedicineStart: 05-18-2025 End: 76-93-4611Xjvoynqpa encounterMer Jean-Baptiste [facility] Work Phone: [phone] Pharmacy Medication ManagementStart: 05-13-2025 End: 71-42-3703Jsqqgz OnlyPronorth [facility] Management Work Phone: [facility] - Pharmacy Medication ManagementStart: 15-18-1863Tpxgmca Akil MD-[facility] Work Phone: Start: 05-03-2025 End: 47-78-9197uqpnmygafbWktdcl E Braun MD Work Phone: -[facility] Path Spec [place] HospStart: 05-03-2025 End: 74-75-1939Dfklnfb Akil MD-[facility] [place] HospStart: 05-02-2025 ambulatoryAurora X OrzechFacility:EU [place]Start: 05-02-2025([place]) Dominick Razo DO-[facility] Work Phone: Start: 09-48-1346YplwtiStefan Best MD-[facility] Work Phone: Start: 82-17-9035Wxbbcjtri [facility] Work Phone: Start: 04-17-2025 End: 48-80-2857Zstyatltk Result EncounterNestor Tyler MD Work Phone: noms External Department UnsolicitedStart: 04-17-2025 End: 15-20-6646Tqknngxow Result EncounterNestor Tyler MD Work Phone: noms External Department UnsolicitedStart: 04-15-2025 Chao Chapman MD-[facility] Work Phone: Start: 70-35-7227PhaekTrace Alvarez MD-[facility] Work Phone: Start: 47-89-1455JtnspTrace Alvarez MD-[facility] Work Phone: Start: 39-48-0559Bhapk Qadir MD-[facility] Work Phone: Start: 04-11-2025 End: 11-38-3870exfyctyhhhGglkhd E Braun MD Work Phone: [facility] Work Phone: Start: 04-11-2025 End: 10-77-7453WazmRobby Artis DO-[facility] [place] HospStart: 04-11-2025 ambulatoryGregory P COOKFacility:CD:[id number]: 04-07-2025 End: 65-25-7079Iipctirnjs and management of inpatientStefan Best MD Work Phone: [facility] Work Phone: Start: 04-07-2025 End: 18-39-7645Icbcmp Popescu MD-[facility] Work Phone: Start: 04-06-2025 End: 81-32-5262ltvcxzwcnuZjllbq E Braun MD Work Phone: [facility] Work Phone: Start: 04-06-2025 End: 28-81-3970Wxcvnbj encounter procedureRobert Blake Artis MD-[facility] Work Phone: Start: 04-06-2025 End: 31-68-4916Lmbnym Blake Artis MD-[facility] Work Phone: Start: 71-81-7656Gin-patient / Non-visitCatherine [facility] Work Phone: Start: 84-20-9177Nqyizpufb [facility] Work Phone: Start: 60-45-3142Dkl-patient / Non-visitChristian Elle Soliman MD-[facility] Work Phone: Start: 64-06-8657Arhrnqbmb Siebenaler D MD-[facility] Work Phone: Start: 90-12-7761Rkx-patient / Non-visitElena Neal [facility] Work Phone: Start: 97-71-7179JagzvMindy De Jesus [facility] Work Phone: Start: 03-22-2025 End: 70-66-8201Jkyovsiugt and management of inpatientStefan Best [facility]2025 End: 92-51-1077jowlbafhytDddscj E BraunFacility:[facility]: 73-11-5026Ikb-patient / Non-visitRobert Blkae Artis MD-[facility] Work Phone: Start: 79-24-7767Dgllkuwkogeorgina Soliman MD-[facility] Work Phone: Start: 03-11-2025 End: 41-48-0853olyiaelxjpVkfccy E Braun MD Work Phone: [facility] Work Phone: Start: 03-11-2025 End: 90-89-6014Bsxoajc encounter procedureRobtisha Artis MD-[facility] Work Phone: Start: 03-11-2025 End: 10-28-7557Onetpu Blake Artis MD-[facility] Work Phone: Start: 97-04-9983Mekouidcdk RecurringRobert Blake Artis MD-Physical Therapy [place] CreekStart: 68-49-5423Bxrpnantf for other preprocedural examinationRobert John Gentile [facility] Physician GroupStart: 03-09-2025 End: 12-97-8630Fgzpoel encounter procedureRobtisha Artis MD-[facility]oStart: 03-09-2025 End: 08-20-7624Eonjpztisha Artis MD-Physical Therapy [place] CreekStart: 03-09-2025 End: 91-63-2203xmjflphamtJrfakp E Braun MD Work Phone: [facility] Work Phone: Start: 03-09-2025 End: 80-92-1272acfmnybnnlDsypmn E Braun MD Work Phone: [facility] Work Phone: Start: 03-09-2025 End: 84-15-4384Dmzydpn encounter procedureDa Artis MD-[facility] Work Phone: Start: 03-09-2025 End: 81-64-7435Yyzwoy Blake Artis MD-[facility] Work Phone: Start: 03-03-2025 End: 22-89-0060Yubgpme encounter procedureRobtisha Artis MD-Pre-Surgical Testing Work Phone: Start: 03-03-2025 End: 12-54-3602Tchebd Blake Artis MDKQ-Koj-Ccjuiqme Testing Work Phone: Start: 03-03-2025 End: 39-60-9994cqzbhrzohbAstyqo E Braun MD Work Phone: [facility] Work Phone: Start: 95-46-9988Hgqccvnjm for preprocedural laboratory examinationRobert John Gentile [facility] Physician GroupStart: 02-08-2025 End: 06-47-4498dtplhbxivkRjicyq E Braun MD Work Phone: [facility] Work Phone: Start: 02-08-2025 End: 87-75-3313Mqraozm encounter procedureLeroy Ashby MD-[facility] Work Phone: Start: 02-08-2025 End: 91-20-8257Zsswu Qadir MD-[facility] Work Phone: Start: [id number]-patient / Non-visitLeroy Ashby MD -[facility] Work Phone: Start: 06-51-0467Unpsq Qadir MD-[facility] Work Phone: Start: 01-31-2025 End: [id number] E Braun MD Work Phone: [facility] Work Phone: Start: 01-31-2025 End: 98-82-3440Kyhbztz encounter procedureStefan Best MD-[facility] Work Phone: Start: 01-31-2025 End: 48-22-9977Zfuyfwqfwbxog examination [facility] 01-31-2025 End: 43-28-6326HwtqkpStefan Best MD-[facility] Work Phone: Start: [phone]-patient / Non-visitRobert Blake Artis MD-[facility] Work Phone: Start: 50-27-1660Pjissq Blake Artis MD-[facility] Work Phone: Start: 01-11-2025 End: 62-71-7575nqmpyvqdxqEqopia E Braun MD Work Phone: [facility] Work Phone: Start: 01-11-2025 End: 78-70-1141Tifbiaw encounter procedureStefan Best MD-[facility] Work Phone: Start: 01-11-2025 End: 06-07-1227CgqwldStefan Best MD-[facility] Work Phone: Start: 11-15-2024 End: 64-01-8290Lqthbhub ReferredStefan Best MD Work Phone: [facility] Work Phone: Start: 11-15-2024 End: 04-41-7809vjcjehkfzxPstgsy E Braun MD Work Phone: [facility] Work Phone: Start: 11-15-2024 End: 95-12-4208Nbiouig encounter procedureStefan Best MD Work Phone: [facility] Work Phone: Start: 10-22-2024 End: 98-02-6993Gsrsuytkp to same day surgery centerStefan Best MD Work Phone: [facility] Main CampusStart: 10-22-2024 End: 14-20-8134qttjnyxnznOvoygk E Braun MD Work Phone: [facility] Work Phone: Start: 10-22-2024 End: 66-88-4377iarwsqzpawJlnfgld P COOKFacility:CD:[id number]: 10-04-2024 End: 72-40-7802mgnsjjxirqOtdokn E Braun MD Work Phone: [facility] Work Phone: Start: 10-04-2024 End: 35-12-1486Ilhqfxu encounter Mary Anne Best MD Work Phone: [facility] Work Phone: Start: 95-89-2171Jgk-patient / Non-visitRobert lBake MARLOW Work Phone: [facility] Work Phone: Start: 13-84-2565Uje-patient / Non-visitRobert Blake MARLOW Work Phone: [facility] GroupDay[facility] Professional [facility] Work Phone: Start: 09-26-2024 End: 12-69-7863saumnnyufhKzhkh T ParkerFacility:[facility] Hospitaltart: 69-03-1186Nzy-patient / Non-visitRobtisha Lozano MD Work Phone: [facility] GroupDayton [facility] Hospital Professional [facility] Work Phone: Start: 08-11-2024 End: 38-29-0140lnocllqrwpSCOZO [facility] AmbulatoryStart: 08-11-2024 End: 63-62-6748Sempky outpatient visit 25 minutesAngela Liang [place] 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 Work Phone: uh [facility] HospitalComment on above:CAD, multiple vessel (Primary Dx); Occlusion and stenosis of right carotid artery; Ischemic cardiomyopathy; Primary hypertension; Mixed hyperlipidemia; Type 2 diabetes mellitus without complication, with long-term current use of insulin (Multi); BMI 33.0-33.9,adult; Chronic kidney disease, stage 3b (Multi); Bruit of right carotid artery; PVD (peripheral vascular disease) ([facility])Start: 08-03-2024 End: 37-30-1839cjofdkxzktMqylor E Braun MD Work Phone: [facility] Work Phone: Start: 08-03-2024 End: 40-37-2542Dfxmwhz encounter procedureStefan Best MD Work Phone: [facility] Work Phone: Start: 07-15-2024 End: 86-44-8890Bjkmzrs encounter procedureStefan Best MD Work Phone: [facility]-Lab Main Cost Work Phone: Start: 07-15-2024 End: 98-66-1391cnlmvglqchTanrxz E Braun MD Work Phone: [facility] Work Phone: Start: 07-12-2024 End: 38-89-3751qwbywqwporWxdcke E Braun MD Work Phone: [facility] Work Phone: Start: 07-12-2024 End: 49-45-6706Rhxeeouz ReferredStefan Best MD Work Phone: [facility]-Surgery Center Main CostStart: 07-01-2024 End: 14-11-2596Clengco encounter Mary Anne Best MD Work Phone: [facility] Work Phone: Start: 06-28-2024 End: 75-39-0722Wygubsb encounter procedureStefan Best MD Work Phone: [facility] [address] Orthoped[facility] Work Phone: Start: 06-28-2024 End: 69-14-6830nevnxqpmsbIpganw M Blake IIFacility:[facility] Hospitaltart: 06-24-2024 End: 00-55-2234Qhgaecq encounter procedureStefan Best MD Work Phone: [facility]-Pre-Surgical Testing Work Phone: Start: 06-24-2024 End: 30-78-8014prjqjdpmozFcxkrw John Lozano IIFacility:[facility] Hospitaltart: 2024 End: 68-48-9548Puinlorll to same day surgery centerStefan Best MD Work Phone: [facility]-Surgery Center Main CostStart: 2024 End: 92-42-4066vbjpeusdezUcofnk E BraunFacility:[facility] Hospitaltart: 2024 End: 68-22-9324dmoksgggxhAhfvzzo P COOKFacility:CD:[id number]: 05-25-2024 End: 05-14-0827Vspnwlv encounter procedureStefan Best MD Work Phone: [facility] Work Phone: Start: 05-25-2024 End: 12-19-1722xkwzyqikqvScbhtf E Braun MD Work Phone: [facility] Work Phone: Start: 05-25-2024 End: 18-22-6533Opnhtkho ReferredStefan Best MD Work Phone: [facility] Main Cost Work Phone: Start: 05-21-2024 End: 53-91-6827Ijzmytw encounter procedureStefan Best MD Work Phone: [facility]-Pre-Surgical Testing Work Phone: Start: 05-21-2024 End: 30-81-8851iykytushruOftznn E Braun MD Work Phone: [facility] Work Phone: Start: 05-20-2024 End: 08-45-2846Exawectax for other preprocedural examinationStefan eBst MD Work Phone: [facility]: 05-20-2024 End: 18-48-3210Jpzjfsn encounter procedureStefan Best MD Work Phone: [facility] Work Phone: Start: 68-12-5671Qfw-patient / Non-visitStefan Best MD Work Phone: [facility] Work Phone: Start: 67-18-1458oxxgxtszrjNvwxyxh P COOK Facility::[id number]: 04-07-2024 End: 59-61-0737Ddhmeaxz ReferredMD Stefan Best Work Phone: [facility]-Lab Main Cost Work Phone: Start: 04-07-2024 End: 06-87-9709tzlespveiwWN Marcia E Braun Work Phone: [facility] Work Phone: Start: 04-07-2024 End: 85-48-9087Gauzzyn encounter procedureMD Stefan Best Work Phone: [facility] Work Phone: Start: 03-22-2024 End: 82-79-4803kzvjuxhhwdKY Marcia E Braun Work Phone: [facility] Work Phone: Start: 03-22-2024 End: 37-20-9031Hjxlvhh encounter procedureMD Stefan Best Work Phone: [facility] [place] Work Phone: Start: 56-51-7795Svm-patient / Non-visitMD Stefan Best Work Phone: [facility] Phys[facility] GroupDay[facility] Professional [facility] Work Phone: Start: 23-72-0891Epi-patient / Non-visitMD Stefan Best Work Phone: [facility] GroupDay[facility] Work Phone: Start: 03-05-2024 End: 88-97-1923tpwvisvwpbOK Stefan Best Work Phone: [facility] Work Phone: Start: 03-05-2024 End: 03-96-7066Ygmlmkv encounter procedureMD Stefan Best Work Phone: [facility] GroupMer[facility] Work Phone: Start: 25-73-7346jiyommdokdZcicj AMIRFacility:[facility] Start: 47-51-2445Slpzvqfry department patient visitTim ThomasFacility:[facility]ALTHtart: 02-26-2024 End: 86-66-0184Lsmaczriuy and management of inpatientMbanefo OJUKWUFacility:[facility] Start: 02-10-2024 End: 28-65-3538jdbvrwjishWibejsi P COOKFacility:EU [place]kyStart: 02-10-2024 End: 40-87-1788Mtvvlac encounter procedureGregestelle NATARAJAN [facility] Start: 02-03-2024 End: 59-93-1549qbtmikiryvFQ Stefan Best Work Phone: [facility] Work Phone: Start: 02-03-2024 End: 84-61-4341Ihjoxoe encounter procedureMD Stefan Best Work Phone: [facility] Phys[facility] GroupMer[facility] Work Phone: start: 63-72-6523atuvstofefFFV Jodi SchwabFacility:EU [place]uskyStart: 33-55-1937Ndz-patient / Non-visitMD Stefan Best Work Phone: [facility] Work Phone: Start: 01-23-2024 End: 87-25-9168wbmhczaivxMowyiyh P COOKFacility:CD:[id number]: 01-22-2024 End: 25-49-6393Ilpskymzau and management of inpatientMD Stefan Best Work Phone: [facility] Work Phone: Start: 01-12-2024 End: 47-75-6154jkecwdptckIC Stefna Best Work Phone: [facility] Work Phone: Start: 01-12-2024 End: 94-49-0536Jijztut encounter procedureMD Stefan Best Work Phone: [facility] Nephrology Work Phone: Start: 12-11-2023 End: 26-86-5696ylkyjaflrtAP Stefan Best Work Phone: [facility] Work Phone: Start: 12-11-2023 End: 58-91-3006Ipedncb encounter procedureMD Stefan Best Work Phone: [facility] Work Phone: Start: 68-51-0703Abg-patient / Non-visitMD Stefan Best Work Phone: [facility] Professional [facility] Work Phone: Start: 12-02-2023 End: 74-33-7241ltmutinzurDA Stefan Best Work Phone: [facility] Work Phone: Start: 12-02-2023 End: 35-90-4960Ajhnrva encounter procedureMD Stefan Best Work Phone: [facility]tart: 48-10-2204Gpjwnie encounter statusMD Stefan Sage Work Phone: [facility]: 11-27-2023 Preprocedural examination Donovan Best MD Work Phone: [facility]tart: 11-27-2023 End: 83-73-4044Hixtlfj encounter procedureMD Stefan Best Work Phone: [facility] Work Phone: Start: 89-66-6596Oaq-patient / Non-visitMD Stefan Best Work Phone: [facility] GroupDay[facility] Professional [facility] Work Phone: Start: 11-19-2023 End: 19-04-8435tamkgkntnlJJU Maxine Baez SchwabFacility:FT FM BellevueStart: 10-23-2023 End: 03-83-1729uesysoxdniXqlwhagwhLima Memorial Hospital Work Phone: Start: 10-23-2023 End: 35-62-4141Tkxgaci encounter procedureCannon [facility] Work Phone: Start: 10-14-2023 End: 72-55-5172Dyltmdpsbk hospital visit by Harmeet Messina [facility]Commun[facility] on above:CAD, multiple vessel; S/P CABG x 3; Ischemic cardiomyopathy; Occlusion and stenosis of right carotid artery; Shortness of breathStart: 10-14-2023 End: 30-89-1499yxglufpcaeJSRXTKB [facility] Centertart: 99-21-0552kbyfwwixnyDGN Maxine Baez SchwabFacility:FT FM BellevueStart: 09-17-2023 End: 86-20-2972Aelkimr encounter procedureFirsentara [facility] Work Phone: Start: 09-17-2023 End: 90-63-1180Fydghn outpatient visit 25 minutesShahrzad Morales MD Work Phone: uh [facility] on above:CAD, multiple vessel (Primary Dx); S/P CABG x 3; History of angioplasty; Primary hypertension; Ischemic cardiomyopathy; Mixed hyperlipidemia; BMI 32.0-32.9,adult; Former smoker; Occlusion and stenosis of right carotid artery; Shortness of breathStart: 09-09-2023 End: 92-33-1556Mmcslvm encounter procedureAdventhealth Hendersonvillelesli [facility]ician [facility] Work Phone: Start: 09-08-2023 End: 70-11-7553ypzlkfswtuMLY Jodi L SchwabFacility:FT BellevueStart: 08-20-2023 End: 94-80-3016qngfkzggroSZE Maxine Baez SchwabFacility:FTMCStart: 08-13-2023 End: 60-12-3375hqcwhhifpfAtgmyc Bollinger II Other noCernostics Other Start: 89-55-5075Ltcrlk outpatient visit 15 minutes Da KEBEDEG [place] OrthopedicsStart: 08-13-2023 End: 56-43-4235Vsphjtq encounter procedureCaromont Healthdanica Physician Group-Start: 05-21-2023 End: 85-50-1631whblnizkksWPO Jodi L SchwabFacility:FTMCStart: 04-23-2023 (Procedure) ShortThomas FelterErie Groton [facility] Hospital Surgery CenterStart: 04-23-2023 End: 83-94-6266wbzdgihoosSkdnvf Felter Other noCernostics Other Start: 04-07-2023 End: 65-36-6306qcikxbghjyXzmbdp Felter Other noCernostics Other Start: 60-14-6826Ppxmznokk encounterThomas FelterFPG [facility] OrthopedicsStart: 03-27-2023 End: 48-52-2072hsmquezawuRcfcng Bollinger II Other [employer] Other Start: 54-50-7667Qsudms outpatient visit 15 minutes Da Lozano IIFPG [facility] OrthopedicsStart: 42-85-9357lcamhdatzpJXP Maxine L SchwabFacility:FT FM BellevueStart: 03-05-2023 End: 36-95-1933qghyaferobUXE Maxine L SchwabFacility:FT FM BellevueStart: 02-10-2023 End: 05-60-3429Xlm Drop offJodi L Shraddha [facility] Start: 12-25-2022(Procedure) ShortThomas FelterErie Groton [facility] Hospital Surgery CenterStart: 12-25-2022 End: 26-90-8760qrtzmwdhtzNpurjh Felter Other [employer] Other Start: 11-12-2022 End: 97-40-4522qtjkilengrXldzxs Felter Other [employer] Other Start: 65-10-9083Yiuskc outpatient new 45 minutes Ross Gonzalez [facility] Bone CreekStart: 11-11-2022 End: 24-04-0326yphauvdyclCH Li Lee Work Phone: [facility] Work Phone: Start: 11-11-2022 End: 72-84-8901Lkkyiwz encounter procedureMD Li Lee Work Phone: [facility] Start: 54-28-9289Zj RenewalLi Lee Work Phone: [phone]-Nwhyt [facility] 250 DO Work Phone: Start: 88-97-2690Pzujdt outpatient visit 25 minutesKim E Lee Work Phone: [phone]-Slzvhqqtbx-[place] 250 DO Work Phone: Start: 18-11-3764kmhrfmokydFyhiugb Patrick McGuinn Facility:[id number]: 57-99-9762Qh RenewalKim E Lee Work Phone: [phone]-Mnjgk [facility] 250 DO Work Phone: Start: 01-30-2022 End: 16-26-8342vwxvbddxrnCE KIM E KNIGHTFacility:W8Wvqsi: 54-41-3105Iycntsdwj for general adult medical examination without abnormal findingsDR SHAHRZAD [facility]rontart: 12-13-2021 End: 55-03-4888lcbbhpmjpgAZ KIM E KNIGHTFacility:N4Pzzix: 12-13-2021 End: 48-44-8842Kuwgiazaz for general adult medical examination without abnormal findingsDR LI Conley KNIGHTFacility:S4Ygsnj: 68-97-6732Bmxkgc outpatient visit 25 minutesKim E Lee Work Phone: [phone]-Fircn [facility] 250 DO Work Phone: Start: 16-87-6293mvujsprkhrJM KIM E KNIGHTFacility:H1 Start: 10-18-2021 End: 34-35-1580ylsvtgywpnZB KIM E KNIGHTFacility:N1Zdlmc: 10-15-2021 End: 09-92-9244bnylapktjqXI KIM E KNIGHTFacility:C7Guncp: 05-19-3431Il Renewal Li E Lee Work Phone: [phone]-Vckqn [facility] DO Work Phone: Start: 05-76-9608Cm RenewalKim E Lee Work Phone: [phone]-Jnhog [facility] 250 DO Work Phone: Start: 09-74-3398ELMXVJzt E Lee Work Phone: [phone]-Ijoxs [facility] DO Work Phone: Start: 69-66-3522YvpvgzsuswTVHMTTZ KIRNUSFacility:1532 Start: 57-35-9085SwliyfypjjLTGUCKR KIRNUSFacility:1532Start: 04-07-2017 End: 31-10-1616CizleqkyplYPLACKJ PHYSICIANFacility:[facility] SERVICESPatient encounter status Li Lee Work Phone: [phone]-Dsvzy [facility] 250 DO Work Phone: Procedures DateProcedureProcedure DetailPerforming ClinicianStart: 02-38-5867Bxbay depression screening assessmentPromedica Medication Management Work Phone: [phone]: 97-99-2442RQBJ CBC WITH PLATELET NO DIFFERENTIALNestor Tyler MD Work Phone: Start: 28-42-5459Rcjaa Jessi Best MD Work Phone: Start: 81-63-5328Crdsi X-ray of left hipStefan Best MD Work Phone: Start: 08-21-3873Utbqu Jessi Best MD Work Phone: Start: 03-53-0206Szztz Jessi Best MD Work Phone: Start: 27-06-7966DjkshosqbgXeafrc Braun MD Work Phone: Start: 78-84-8426Buhcwi abdominal X-rayStefan Best MD Work Phone: Start: 29-47-8651Wmlteg abdominal X-rayStefan Best MD Work Phone: Start: 45-83-5877Jomam Jessi Best MD Work Phone: Start: 23-66-0531Pzipm X-ray of left hipStefan Best MD Work Phone: Start: 12-61-3041Bdjuq Jessi Best MD Work Phone: Start: 96-53-2680Qkwdbekt screenRobert Blake II Comment on above:Order Comment: Date of Surgery: [id number] Comment: PERFORMED BY:[facility] [place], [place] [phone] MEDICAL DIRECTORRADHA DURAN M.D.Start: 06-12-9287ZbqxtkamrfSajwge Braun MD Work Phone: Start: 77-65-0755Vctuge abdominal X-rayStefan Best MD Work Phone: Start: 53-94-6619Ctmhh Jessi Best MD Work Phone: Start: 55-51-3865Etlxp Jessi Best MD Work Phone: Start: 44-40-6469LeodkngpiwBG Stefan Best Work Phone: Start: 55-60-3063LB of abdomen and pelvis without contrastMD Stefan Best Work Phone: Start: 93-16-5771Hiprm cultureMD Stefan Best Work Phone: Start: 60-82-4508Mrsdcckmooi resistant Staphylococcus aureus cultureMD Stefan Best Work Phone: Start: 01-92-8206KTPECJS STRESS TESTSHAHRZAD MORALES Start: 99-82-3261Fo strs tst xers&/or rx cont ecg trcg onlyShahrzad Morales MD Work Phone: Start: 46-66-9598Zryopds of coronary artery bypass graftingS/P CABG x 3Shahrzad Morales MD Work Phone: Start: 89-01-9108Spvlq 1996 panel - Serum or Plasma Shahrzad Morales MD Work Phone: Aortoiliofemoral vascular bypassLi Lee Work Phone: CAShahid Lee Work Phone: Cataract surgeryKijohn Lee Work Phone: Cataract surgeryJodi Shraddha Cesarean sectionKijohn Lee Work Phone: Comment on above:x3; sectionJodi Shraddha Comment on above:Outside Source Comment: Comment on above: x3;History of coronary artery bypass graftingS/P CABG x 3Kim E Rosa Work Phone: History of coronary artery bypass graftingJodi Shraddha History of coronary artery bypass graftingS/P CABG x 3 Shahrzad Morales MD Work Phone: History of coronary artery bypass graftingS/P CABG x 3 Margie 1History of coronary artery bypass graftingHistory of coronary artery bypass graftMD Stefan Best Work Phone: Plan of Treatment DateCare ActivityDetailAuthorStart: 61-90-9981Ytdtcbgrnc ScreeningDepression ScreeningProKnox Community Hospital SystemStart: 70-76-3180Aiznjfk ScreeningTobacco ScreeningProKnox Community Hospital SystemStart: 08-11-2025 End: 32-20-9380Ukccsga encounter jhimacrbo50/29/2026 11:10 AM EST Office Visit [address] [place] [address] Shahrzad Cobb, [address] [facility] [address], [address] [place] [address] [facility]: 07-25-2025 End: 66-40-9395Doagvus encounter xskipkdjk35/12/2026 9:45 AM EST Appointment [address] [place] [phone] [facility]: 06-07-2025 End: 23-25-5755Pwccsrt encounter adkqpcywu39/25/2025 12:00 PM EST Office Visit [facility] [address] [facility] [address] [place] [address] ZiElli ibrahim, 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 [address] [facility] [address] [facility] [place] [address] [facility] DiseaseStart: 09-15-8123PaqihfzcgKnox Community Hospitaltart: 74-81-6283Xvqgi [facility]ertart: 04-11-2025 [facility]: 75-51-0315Fkgdt [facility] Centertart: 25-97-6386FbtyenlcwKnox Community Hospitaltart: 87-62-0231Jbeiuzog to cardiologistKnox Community Hospitaltart: 39-81-8920Usomhofb admissionKnox Community Hospitaltart: 04-04-2025 [facility]: 32-07-5153Vhfrimjc admissionKnox Community Hospitaltart: 60-79-6465Xbwyrvgi to clinical allergGrand Lake Joint Township District Memorial Hospitaltart: 32-47-1504HywmineuyKnox Community Hospitaltart: 26-29-9885Yugitkrs admissionKnox Community Hospitaltart: 03-21-2025 Referral to clinical allergGrand Lake Joint Township District Memorial Hospitaltart: 03-21-2025 Referral to rehabilitation physicianKnox Community Hospitaltart: 61-43-4331FMRDH-19 Vaccine ( season)COVID-19 Vaccine ( season)ProMgrove hill memorial hospital Health SystemStart: 75-88-6450Oivqhuqiz vaccinationCox MonettStart: 50-17-7519Mrhvz X-ray of left hipXR hip LT min 2V(w/wo pelvis)* [facility]: 68-22-6001YP Hip - left 2 ViewsKnox Community Hospitaltart: 68-21-2373Uynbe [facility] Centertart: 18-77-9846QvefqjwgvKnox Community Hospitaltart: 03-03-2025 Bacteria identified in Urine by CultureUrine [facility] Hospitaltart: 85-70-1139Vptaz [facility] Centertart: 52-59-9595Zpptqncw identified in Urine by CultureUrine [facility] Hospitaltart: 63-94-3069KrgxnhyfzKnox Community Hospitaltart: 98-83-3100Zoxehi abdominal X-rayKnox Community Hospitaltart: 54-31-0166Bvudf [facility] Centertart: 08-11-2024 End: 12-67-0636WV.doppler Carotid arteries - bilateralVascular US Carotid Artery Duplex Bilateral Vascular Ultrasound Routine Bruit of right carotid artery Expected: 08/11/2024 (Approximate), Expires: 08/11/2026[facility] Service Area Work Phone: Comment on above:Expected: 08/11/2024 (Approximate), Expires: 08/11/2026Start: 90-85-8621Wfyaawuc identified in Urine by CultureUrine [facility] Hospitaltart: 06-01-5198Yphki [facility] Centertart: 50-30-2223Uyrbb replacement of left hip jointOR Total Hip Arthro Anterior Approach (Left)[facility]: 06-09-2024 End: 18-36-5493Fhejsct encounter mkhydqeha00/27/2024 11:30 AM EST Office Visit [facility] [address] [facility] [address] [place] [phone] Angela Braun, 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 [address] [facility] [address], [address] [place] [address] [facility] AlabamaStart: 2024 End: 98-58-0467MnkgvofbjKnox Community Hospitaltart: 77-83-7422Xleiuesy identified in Urine by CultureZanesville City [facility] Start: 20-40-2515Jppbb [facility] Centertart: 04-07-2024 Bacteria identified in Urine by CultureKnox Community Hospitaltart: 94-46-0579ZMJXB-19 Vaccine ( season)COVID-19 Vaccine ( season)[facility]: 23-46-0876Socsviqgg [facility]: 54-31-5737QifjlwdyzKnox Community Hospitaltart: 32-69-1099YykofbfciKnox Community Hospitaltart: 01-25-2024 [facility]: 12-74-2085CaoylhdyxKnox Community Hospitaltart: 08-21-9496Apwdgrns admissionKnox Community Hospitaltart: 02-47-1208Hbuzoedk to nephrologistKnox Community Hospitaltart: 02-28-6445Edxjwbib to urologistKnox Community Hospitaltart: 34-03-4672LnyrwjqtfKnox Community Hospitaltart: 61-92-4710Uoabvpwj of Bilateral Ureters, Via Natural or Artificial Opening EndoscopicDilation of Bilateral Ureters, Via Natural or Artificial Opening EndoscopicKnox Community Hospitaltart: 56-18-3637Cacuwjlizog of Kidneys, Ureters and Bladder using Low Osmolar ContrastFluoroscopy of Kidneys, Ureters and Bladder using Low Osmolar ContrastKnox Community Hospitaltart: 12-12-2023 [facility] Work Phone: Start: 72-90-7797LAXQ CultureMetroHealth Main Campus Medical Centertart: 09-17-2023 End: 24-13-2344CB Heart Perfusion W stress and W radionuclide IVNuclear Stress Test Cardiac Nuclear Medicine Routine CAD, multiple vessel S/P CABG x 3 Ischemic cardiomyopathy Occlusion and stenosis of right carotid artery Shortness of breath Expected: 09/17/2023 (Approximate), Expires: 09/16/2025[facility] Service Area Work Phone: Comment on above:Expected: 09/17/2023 (Approximate), Expires: 09/16/2025Start: 55-77-3859PDS, Provider: Shahrzad Morales, Status: Pen, Time: 3:40 PMFUV, Provider: Shahrzad Morales, Status: Pen, Time: 3:40 PM LU-Gxmmjityda-Jbvxubny 250 DO Work Phone: Start: 62-90-7600Yxfqcnzz screeningDiabetes: Retinopathy ScreeningSelect [facility] [place]: 94-50-6443NUYHT-19 Vaccine ( season)COVID-19 Vaccine ( season)[facility]: 88-87-6304Imhfuitxb vaccinationInfluenza Vaccine (#1)[facility]: 90-01-3732L-ray of lumbar spine, four viewsXR lumbar spine AP/LAT/FLX/EXTKnox Community Hospitaltart: 92-27-3459Usnnp X-ray of left hipXR hip LT min 2V(w/wo pelvis)*[facility] Hospitaltart: 32-10-9359YB Hip - left 2 ViewsKnox Community Hospitaltart: 04-05-2023Medicare Annual Wellness VisitMedicare Annual Wellness Visit (AWV)[facility]: 43-56-1432SGZ, Provider: Shahrzad Morales, Status: Pen, Time: 3:30 PMFUV, Provider: Shahrzad Morales, Status: Pen, Time: 3:30 PMMP-[facility] [employer]-[place] 250 DO Work Phone: Start: 59-67-1934YGD, Provider: Shahrzad Morales, Status: Pen, Time: 3:20 PMFUV, Provider: Shahrzad Morales, Status: Pen, Time: 3:[address]-[facility]-[place] 250 DO Work Phone: Start: 80-67-1630BTQ, Provider: Shahrzad Morales, Status: Pen, Time: 1:15 PMFUV, Provider: Shahrzad Morales, Status: Pen, Time: 1:15 PMMP-[facility]-[place] 250 DO Work Phone: Start: 59-29-2344Muthi panelLipid PanelUnOhioHealth Mansfield Hospital: 55-05-0146LFU ( or age 60+ yrs) (1 - 1-dose 75+ series)RSV ( or age 60+ yrs) (1 - 1-dose 75+ series)[facility]: 10-67-1678RCS High Risk: (Elderly (60+) or Population) (1 - 1-dose 75+ series)RSV High Risk: (Elderly (60+) or Population) (1 - 1-dose 75+ series)[facility]: 39-36-3587Xzzeplvmrf A1c measurementDiabetes: Hemoglobin W6PCxnwfbpqpvSelect [facility]ty [facility] [place]: 52-45-0009NArP,Tdap and Td Vaccines (1 - Tdap)DTaP,Tdap and Td Vaccines (1 - Tdap)[facility]Start: 08-37-9006Nzil Risk ScreeningFall Risk ScreeningRiverside Methodist Hospital SystemStart: 1995 Administration of varicella zoster vaccineZoster (Shingles) Vaccine (1 of 2) [facility]Start: 25-02-6632Epdzbn Vaccines (1 of 2)Zoster Vaccines (1 of 2)[facility]: 96-54-0362BKaB/Tdap/Td Vaccines (1 - Tdap)DTaP/Tdap/Td Vaccines (1 - Tdap)[facility] Start: 79-56-7840ANfO,Tdap and Td Vaccines (1 - Tdap)DTaP,Tdap and Td Vaccines (1 - Tdap)[facility]: 93-79-5254Esjoq screening for protein Diabetes: Urine Protein ScreeningSelect [facility] [place]: 24-39-0635Ulcyuzgye C screeningHepatitis C ScreeningSelect [facility]ty [facility] [place]: 87-47-2278Qrbfgbkb foot examinationDiabetes: Foot ExamUnOhioHealth [facility]field [facility]: 1945Medicare Annual Wellness VisitMedicare Annual Wellness Visit (AWV)[facility]: 1945 Screening for osteoporosisBone Density ScanACMC Healthcare System Glenbeigh Start: 27-26-7714Nkhxf screening for proteinDiabetes: Urine Protein Screening [facility]ighBacteria identified in Urine by Culture [facility] CenterCotinine [Mass/volume] in Serum or Plasma [facility] CenterImmunofixation for UrineUniversity Hospitals Elyria Medical CenterNicotine [Mass/volume] in Serum or PlasmaUniversity Hospitals Elyria Medical CenterPatient EducationSelect Medical Specialty [facility] Work Phone: Patient referralSelect Medical Specialty [facility] Work Phone: Renal function 1999 panel - Serum or [facility] 1999 panel - Serum or [facility] HealthRenal function 2000 panel - Serum or [facility] HealthRenal function 1999 panel - Serum or [facility] HealthUrine cultureUniversity Hospitals Elyria Medical CenterUS Kidney - bilateralAspirus [facility] Immunizations Immunization DateImmunizationNotesCare FxjnpdtkWdefznel91-67-3702Vegyl Quadrivalent 0.5 ML Intramuscular Prefilled SyringeKim E Lee Work Phone: [phone]-MyeiwyozjqMayuri 250 DO Work Phone: [phone] virus vaccine, unspecified formulationJodi Shraddha 351-4476Xowkzo-XchezSelect Medical [facility]ty [facility] [place] Yyjabrjb11-53-3476 influenza, injectable, quadrivalent, contains preservativeShahrzad Morales MD Work Phone: [facility] Work Phone: [phone] COVID-19 Vac Bivalent 30 MCG/0.3ML Intramuscular SuspensionKim E Lee Work Phone: [phone]-VrjrmSelect Medical Specialty Hospital - [place] BellevueComment on above: Result Comment: 2023-02-10: EFT2900-32-7867Zuhynz-WpiDVyld COVID-19 Vacc 30 MCG/0.3ML Intramuscular SuspensionKim E Lee Work Phone: [phone]-FyiqhSelect Medical Specialty Hospital - [place] BellevueComment on above: Result Comment: 2023-02-10: HMO5495-67-1115Gqldcd-HkqEJeko COVID-19 Vacc 30 MCG/0.3ML Intramuscular SuspensionKim E Lee Work Phone: [phone]-QompmSelect Medical Specialty Hospital - [place] BellevueComment on above: Result Comment: 2023-02-10: JGP3106-05-0942Njvzca-GkeSAhaw COVID-19 Vacc 30 MCG/0.3ML Intramuscular SuspensionKim E Lee Work Phone: [phone]-YmkckMount Carmel Health SystemComment on above: Result Comment: 2023-02-10: NTU0887-55-8007ihbfevonj virus vaccine, unspecified formulationJodi Shraddha 441-8122Zgfzbx-SgpemMount Carmel Health System12-19-2019 influenza, injectable, quadrivalent, contains preservativeKim E Lee Work Phone: [phone]-AnwodJohn Ville [address] DO Work Phone: [phone] virus vaccine, unspecified formulationKim E Lee Work Phone: [phone]-BvevbMount Carmel Health System10-04-2018 influenza virus vaccine, unspecified formulationJodi Shraddha 717-3701Zznsyt-NgslfMount Carmel Health System10-04-2018 pneumococcal polysaccharide vaccine, 23 valentKim E Lee Work Phone: [phone]-XzwvjMount Carmel Health System10-01-2018 influenza virus vaccine, unspecified formulationKim E Lee Work Phone: [phone]-JdrjsJohn Ville [address] DO Work Phone: [phone]) [phone] conjugate vaccine, 13 valentKim E Lee Work Phone: [phone]-AnjrpJohn Ville [address] DO Work Phone: [phone]t virus vaccine, unspecified formulationJodi Shraddha 631-3144Ulfjch-MvvszMiddletown Hospitalue10-30-2017 influenza, high dose seasonal, preservative-freeKim E Lee Work Phone: [phone]-KvoaxJohn Ville [address] DO Work Phone: [phone]) [phone]sdj conjugate vaccine, 13 valentKim E Lee Work Phone: [phone]-LllnaMount Carmel Health System04-01-2017 pneumococcal polysaccharide vaccine, 23 valentLi Lee Work Phone: [phone]-TsrkpMinneapolis [facility] 300 DO Work Phone: [phone] and diphtheria toxoids, adsorbed, preservative free, for adult use (5 Lf of tetanus toxoid and 2 Lf of diphtheria toxoid)Rohini Cassavar 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 Work Phone: [facility]06-05-2012tetanus toxoid, adsorbedLauren Cassavar 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 Work Phone: [facility] CenterAgrite23-91-2104lrkxzxfli virus vaccine, unspecified formulationLi Lee Work Phone: [phone]-TpsykMinneapolis Va Health Care System 466 DO Work Phone: [phone], seasonal, injectable, preservative freeLauren Cassavar 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 Work Phone: [facility] Base CRMNEGATED: Highlighted row has not occurred!73-18-4528bywuvwrumrvz polysaccharide vaccine, 23 valentLauren Cassavar 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 Work Phone: [facility] HauteLookComment on above:Deferred: Other - NeverNEGATED: Highlighted row has not occurred!81-04-9041ruqtgq vaccine, liveLauren Cassavar 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 Work Phone: [facility] SystemComment on above:Deferred: Other - Never Payers DatePayer CategoryPayerPolicy [id number] Care Other (unspecified)[facility] Member Subscriber Plan / Payer (Effective 2024-Present) Name: Lexi Tatum Relation to Subscriber: Self Name: Lexi Tatum Payer ID: [id number] (NAIC) Group ID: Not on file Type: Not on file Address: [address] [place] [id number]-feb [id number] [id number] 2023 Medicare supplemental policy (as second payer)AARP [id number]p01-63-7317 Medicare1.2.840.005918.1.13.647.2.7.3.876472.315 [id number] ..[id number] [id number] 1960Self-[id number] [id number] 2.0.1.581892.3.579.2.01166-07-8092Sdcregh6242595 2.0.1.622912.3.579.2.91740-34-6342Wbhwdzv4587988 2.840.1.092545.3.579.2.93843-98-7868Psxqfty5833416 2.0.1.484463.3.579.2.94839-78-9509Ytcoljo1100955 2.16840.1.629679.3.579.2.77497-52-3788Idhxkmk405650756 2.16840.1.318489.3.579.2.62294-05-1936Wjheuzn862471675 2.16840.1.985314.3.579.2.83189-97-0210Iglknci90213918 2.16840.1.386667.3.579.2.03631-67-8463Hbmvfcy20395326 2.16840.1.874679.3.579.2.07320-25-7014Qbmagak76075530 2.840.1.978941.3.579.2.87295-67-3106Wekqmis01027663 2.840.1.293583.3.579.2.73519-09-7103Srmzfmj10422699 2.840.1.623018.3.579.2.71986-81-3978Vhbgisq74234242 2.840.1.654831.3.579.2.98822-26-9856Igjwbmx47053909 2..1.264245.3.579.2.25312-89-0317Pkplzcn27343144 2.840.1.969299.3.579.2.59487-86-6988Busewwz94973481 2.840.1.579490.3.579.2.81921-60-4821Zmpqdho95489375 2.16840.1.278726.3.579.2.73937-68-9055Rnbqksu39413379 2.16840.1.345317.3.579.2.17841-76-0544Usxcipj58984136 2.16.840.1.843368.3.579.2.32203-16-8529Vzbcvuh86253466 2.16.840.1.587140.3.579.2.25709-58-4305Ruazqkk91034730 2.16.840.1.294252.3.579.2.08851-88-5270Zyiubbz80379772 2.16.840.1.959018.3.579.2.30494-70-0797Kfdbedb34069517 2.16.840.1.335171.3.579.2.85431-16-5802Gjrrwon47727793 2.16.840.1.845211.3.579.2.85680-67-3554Tgfdwyb97900462 2.16840.1.613175.3.579.2.45795-77-3062Qfcrwwm50096976 2.16.840.1.114005.3.579.2.86887-14-9264Esayhec24677119 2.16.840.1.127597.3.579.2.95474-87-1736Cxbyqfp2289077 2.16840.1.463801.3.579.2.419281-22-6762Uwaclwp58596029 2.16840.1.900500.3.579.2.586187-18-6604Nvilmpn5944214 2.16.840.1.747443.3.579.2.406228-26-1831Vlgoxca5013650 2.16.840.1.462441.3.579.2.889657-09-3829Gfxumbm6511600 2.16840.1.933151.3.579.2.564217-66-4395Mrcscqm053951528 2.16.840.1.599411.3.579.2.542599-37-7432Meunexh87102873 2.840.1.052010.3.579.2.09166-74-4820Swkroln99440699 2.840.1.332926.3.579.2.44633-91-0862Jdpmker18622268 2.840.1.035592.3.579.2.54634-71-2577Szviyal31966907 2.840.1.906650.3.579.2.43870-39-1577Maaxkgz38395615 2.840.1.475122.3.579.2.99334-73-1034Aprpnlh91732404 2.0.1.792005.3.579.2.86983-74-4590Coizxwq72802950 2.840.1.46[id number] c99g7qj8-0iqq-2405-m900-4c2v26120862Aeibldy34460292 2.840.1.284611.3.579.2.321Qftmvvn28894692 2.840.1.963328.3.579.2.531 Myfgjnl53161093 2.840.1.523286.3.579.2.728Hxopwon23607184 2.840.1.329693.3.579.2.250Eddijse71443813 2.840.1.441061.3.579.2.531 Gaysoxy70610861 2.840.1.437619.3.579.2.656Vzjuxzh27499427 2.840.1.233865.3.579.2.452Ageescz69947563 2.16.840.1.855300.3.579.2.531 Xsoccqi37732186 2.16.840.1.579012.3.579.2.071Rxdnkig66478432 2.16.840.1.343960.3.579.2.480Vemveda49016189 2.16.840.1.812187.3.579.2.531 Jlfhfas75937023 2.16.840.1.929870.3.579.2.453Vkwjdsu49474265 2.16.840.1.914042.3.579.2.589Vrkbgut79195664 2.16.840.1.976593.3.579.2.531 Fkrvqtx79637679 2.16840.1.631609.3.579.2.398Tyiwvgx14022527 2.16.840.1.031776.3.579.2.931Lebklfr78330262 2.16.840.1.153743.3.579.2.531 Ufytuub59119438 2.16840.1.661700.3.579.2.531 Social History DateTypeDetailFacilityStart: 07-08-2023 End: 93-55-2351Tpmviu smokerFormer smokerJohn Ville [address] DO Work Phone: Comment on above:Quit 17 years ago;Quit 25+ years ago; coffee occasionally soda, tea;Start: 08-06-2018 End: 1945Qpimfjk smoking status NHISEx-smoker (finding)[facility] Medical CenterComment on above:quit age 50Start: 67-75-2493Trc [facility]: 07-08-2023 End: 45-21-0302Dgu Assigned At BirthMercy Health Clermont HospitalTobacco smoking statusNeverFisher-Bannock Family Medicine BellevueComment on above:quit age 50 End: 58-25-0378Valmoqe of tobacco useCurrent smokerACMC Healthcare System [facility] Work Phone: End: 82-12-2340Tfaewft of tobacco useCigarette SmokerUnUniversity Hospitals [facility] Center Work Phone: Start: 07-08-2023 End: 74-43-9323Lgesvjm use and exposureSmokeless tobacco non-userUnUniversity Hospitals Portage Medical Center Work Phone: Start: 09-17-2023 End: 92-02-4733Xfecyic intakeCurrent drinker of alcohol (finding)[facility] Work Phone: Start: 40-62-9842Ggmvfpc CommentoccasionalUniversCommunity Mental Health Center Work Phone: Start: 68-21-0134Haa Assigned At BirthNot on file [facility] Work Phone: Start: 09-07-2023 End: 70-41-6775Axhajplt to SARS-CoV-2 (event)Not sureACMC Healthcare System GlenbeighStart: 08-13-2023 End: 36-53-8113Ukwunhx smoking status NHISNever smoked tobacco (finding) [facility]24 End: 94-37-8154SriXnjovc (finding)[facility]: 04-01-2025 End: 49-91-2585TYGA Follow upSDOH Follow upC[facility] Work Phone: Tobacco smoking status NHISTobacco smoking consumption unknownNOAR HealthcareStart: 20-43-7740Cwquphmco beverage intakeLifetime non- drinker (finding)[facility] SystemHow often do you have a drink containing alcohol?NeverProMedica Health SystemHas the electric, gas, oil, or water company threatened to shut off services in your home in past 12MoNoProKnox Community Hospital System Medical Equipment Procedure CodeEquipment CodeEquipment Original TextEquipment IdentifierDates Cystoscopy, with ureteral calculus manipulation and stent placement ()[id number] FDAStart: 04-55-0017Pohzrngfph, with ureteral calculus manipulation and stent placement ()[id number](17)[id number](10)[id number] FDAStart: 97-17-4311Frcmfshgex, with ureteral calculus manipulation and stent placement ()[id number](17)[id number](10)[id number] FDAStart: 93-17-1637Qrdjiwxiuu, with ureteral calculus manipulation and stent placement ()[id number](17)194191(10)[id number] FDAStart: 33-00-3416Zznyjyauakrp, hip, total, anterior approach()[id number](17)755746(10)8264934 FDAStart: 73-15-6247Odfmopevrfsv, hip, total, anterior approach ()[id number](17)015374(10)[id number] FDAStart: 82-86-2210Toxcdtboyiez, hip, total, anterior approach()[id number](17)374133(84)78908118 FDAStart: 35-07-5920Epkgafmjlvlp, hip, total, anterior approach ()[id number](17)371979(10)[id number] FDAStart: 99-42-3387Worvmdrffxyo, hip, total, anterior approach()[id number](17)483039(94)7691515 FDAStart: 34-93-9320Fradkajumtnn, hip, total, anterior approach ()[id number](17)570256(89)1844081 FDAStart: 24-42-1665Qcnxirxiliwc, hip, total, anterior approach()[id number](17)662456(10)[id number] FDAStart: 64-21-7294TIC repair with graftGRAFT HEMASHIELD 76A6U02DQKZHSvrgt: 97-87-0373IIM repair with graftIR STENT SMART 9 X 40 120 CMFDAStart: 22-11-2377SCH repair with graftGRAFT HEMASHIELD 95B9N66VGDSIDemwr: 58-56-5505AJH repair with graftIR STENT SMART 9 X 40 120 CMFDAStart: 61-99-8834ILQ repair with graftGRAFT HEMASHIELD 68H8J61IURAAJsuzm: 22-01-0118DYY repair with graftIR STENT SMART 9 X 40 120 CMFDAStart: 46-53-3351SVC repair with graftGRAFT HEMASHIELD 76W3L73ZGXHY Start: 29-83-8204WMZ repair with graftIR STENT SMART 9 X 40 120 CMFDAStart: 50-95-2057XQZ repair with graftGRAFT HEMASHIELD 81F7V88JLOVBGijlj: 72-48-8812EIC repair with graftIR STENT SMART 9 X 40 120 CMFDAStart: 33-76-0735LHE repair with graftGRAFT HEMASHIELD 37B9M98MDTLDBstkk: 95-18-2922BMZ repair with graftIR STENT SMART 9 X 40 120 CMFDAStart: 88-98-5639CVS repair with graftGRAFT HEMASHIELD 67C1W58TWFOCUqmvx: 27-19-5702NQZ repair with graftIR STENT SMART 9 X 40 120 CMFDAStart: 87-31-3166RZY repair with graftGRAFT HEMASHIELD 28C5F68IQRPQ Start: 64-68-5542ZXA repair with graftIR STENT SMART 9 X 40 120 CMFDAStart: 86-26-1344BXX repair with graftGRAFT HEMASHIELD 70H4W15BJIHCAaxfw: 05-39-2182KZP repair with graftIR STENT SMART 9 X 40 120 CMFDAStart: 22-24-5157UMP repair with graftGRAFT HEMASHIELD 90L1U99KMGEXCcqcb: 60-24-7143ELP repair with graftIR STENT SMART 9 X 40 120 CMFDAStart: 09-19-4933YFM repair with graftGRAFT HEMASHIELD 02S4V79BFCOHLnrxa: 21-98-9078UCF repair with graftIR STENT SMART 9 X 40 120 CMFDAStart: 32-47-7489WXD repair with graftGRAFT HEMASHIELD 55P7Z55NRIXX Start: 95-96-3404RQE repair with graftIR STENT SMART 9 X 40 120 CMFDAStart: 42-64-1747TXT repair with graftGRAFT HEMASHIELD 79L4N96DYYBIOnqmz: 75-49-8031RMF repair with graftIR STENT SMART 9 X 40 120 CMFDAStart: 50-08-2812ZFY repair with graftGRAFT HEMASHIELD 68I5V51BPCBSHbbvz: 31-90-9615VKV repair with graftIR STENT SMART 9 X 40 120 CMFDAStart: 42-19-7906ZWZ repair with graftGRAFT HEMASHIELD 67N7G95OAWNVOxgnt: 68-26-7046GVV repair with graftIR STENT SMART 9 X 40 120 CMFDAStart: 53-51-5466PGW repair with graftGRAFT HEMASHIELD 12I2Z84FXXJM Start: 02-24-4502VUD repair with graftIR STENT SMART 9 X 40 120 CMFDAStart: 95-62-0069IKY repair with graftGRAFT HEMASHIELD 85F4H90CCCGKAwceu: 39-70-1571ZLQ repair with graftIR STENT SMART 9 X 40 120 CMFDAStart: 60-73-5656KQC repair with graftGRAFT HEMASHIELD 48A4L56ECYXGBchba: 69-72-6004TVD repair with graftIR STENT SMART 9 X 40 120 CMFDAStart: 40-70-1577IGA repair with graftGRAFT HEMASHIELD 70Y8J62VPICTDovyr: 34-61-0426DKA repair with graftIR STENT SMART 9 X 40 120 CMFDAStart: 04-32-4231PAJ repair with graftGRAFT HEMASHIELD 16E5C76MZIBD Start: 36-72-7602IGI repair with graftIR STENT SMART 9 X 40 120 CMFDAStart: 41-72-2743VHK repair with graftGRAFT HEMASHIELD 62T3O06JLPMUSgamt: 56-78-4854BBH repair with graftIR STENT SMART 9 X 40 120 CMFDAStart: 69-69-5104DYN repair with graftGRAFT HEMASHIELD 51F3R03PORFDSyije: 39-10-5425OYL repair with graftIR STENT SMART 9 X 40 120 CMFDAStart: 92-02-0456TVN repair with graftGRAFT HEMASHIELD 00J4Z61IOENFRzdhq: 18-38-8551YOF repair with graftIR STENT SMART 9 X 40 120 CMFDAStart: 75-45-9234OXC repair with graftGRAFT HEMASHIELD 89R2R16ROHZN Start: 34-82-0650NAF repair with graftIR STENT SMART 9 X 40 120 CMFDAStart: 08-31-8355VZH repair with graftGRAFT HEMASHIELD 51N1B50YBYDPHhpop: 81-49-2791YUI repair with graftIR STENT SMART 9 X 40 120 CMFDAStart: 19-19-4161LPH repair with graftGRAFT HEMASHIELD 82R1U37WPQOGBzmom: 67-48-6610OID repair with graftIR STENT SMART 9 X 40 120 CMFDAStart: 97-82-0437BLV repair with graftGRAFT HEMASHIELD 87O2B26QHRZMHsjfv: 14-22-4717RGH repair with graftIR STENT SMART 9 X 40 120 CMFDAStart: 02-92-1568JXF repair with graftGRAFT HEMASHIELD 55L0X69TXRMX Start: 74-37-7998ZUU repair with graftIR STENT SMART 9 X 40 120 CMFDAStart: 14-05-3542IGK repair with graftGRAFT HEMASHIELD 31N9T16FDAKGInwpq: 66-43-4770ISL repair with graftIR STENT SMART 9 X 40 120 CMFDAStart: 15-74-3711CEN repair with graftGRAFT HEMASHIELD 56H3U60FOHRDCjist: 68-17-0053OQA repair with graftIR STENT SMART 9 X 40 120 CMFDAStart: 01-51-0367OPF repair with graftGRAFT HEMASHIELD 99R7Z94QVBGPJgcnh: 20-76-8312BUG repair with graftIR STENT SMART 9 X 40 120 CMFDAStart: 45-03-0825DZO repair with graftGRAFT HEMASHIELD 96J2N07YXARS Start: 13-31-2505RGO repair with graftIR STENT SMART 9 X 40 120 CMFDAStart: 82-13-6836RTR repair with graftFDAStart: 05-94-4493VGT repair with graftFDA Start: 12-79-1265SKR repair with graftFDAStart: 04-85-7598UUA repair with graft FDAStart: 49-32-5997SHC repair with graftFDAStart: 39-69-4341UVO repair with graftFDAStart: 84-80-0050IQ STENT XIENCE ALP 2.25 X 15FDAStart: 05-64-2133MH STENT XIENCE ALP 2.5 X 38FDAStart: 59-14-4038QF STENT XIENCE ALP 3.0 X 18FDA Start: 60-29-4276SKQSR PALMAZ BLUE 7 X 24 135CMFDAStart: 38-24-1383Obmb DME Prescription, See Instructions, 100 strip(s), 3, True Metrix Test Strips Check AC[facility], [facility], Supply, 140.6, cm, 02/10/23 11:29:00 EDT, Height/Length Dosing, 79.2, kg, 02/10/23 11:29:00 EDT, Weight DosingStart: 67-29-1936CS STENT XIENCE ALP 2.25 X 15FDAStart: 74-67-0863QU STENT XIENCE ALP 2.5 X 38FDAStart: 36-89-2721BL STENT XIENCE ALP 3.0 X 18FDAStart: 06-24-2017 STENT PALMAZ BLUE 7 X 24 135CMFDAStart: 28-82-2169NL STENT XIENCE ALP 2.25 X 15 FDAStart: 23-91-2923EZ STENT XIENCE ALP 2.5 X 38FDAStart: 75-18-9310ID STENT XIENCE ALP 3.0 X 18FDAStart: 50-33-7715FJCTI PALMAZ BLUE 7 X 24 135CMFDAStart: 47-20-4005ZD STENT XIENCE ALP 2.25 X 15FDAStart: 23-93-8925EE STENT XIENCE ALP 2.5 X 38FDAStart: 53-75-1899MA STENT XIENCE ALP 3.0 X 18FDAStart: 06-24-2017 STENT PALMAZ BLUE 7 X 24 135CMFDAStart: 86-19-5062YF STENT XIENCE ALP 2.25 X 15 FDAStart: 91-88-1962CZ STENT XIENCE ALP 2.5 X 38FDAStart: 00-88-1479AR STENT XIENCE ALP 3.0 X 18FDAStart: 59-32-0035SNCOA PALMAZ BLUE 7 X 24 135CMFDAStart: 19-15-6933JY STENT XIENCE ALP 2.25 X 15FDAStart: 67-47-8439XA STENT XIENCE ALP 2.5 X 38FDAStart: 23-56-6643YR STENT XIENCE ALP 3.0 X 18FDAStart: 06-24-2017 STENT PALMAZ BLUE 7 X 24 135CMFDAStart: 55-14-4253HI STENT XIENCE ALP 2.25 X 15 FDAStart: 99-36-8176MV STENT XIENCE ALP 2.5 X 38FDAStart: 68-54-7497QO STENT XIENCE ALP 3.0 X 18FDAStart: 67-15-9489ADVRP PALMAZ BLUE 7 X 24 135CMFDAStart: 27-66-6812Ryhh DME Prescription, See Instructions, 100 strip(s), 3, True Metrix Test Strips Check AC&[facility], [facility], Supply, 140.6, cm, 02/10/23 11:29:00 EDT, Height/Length Dosing, 79.2, kg, 02/10/23 11:29:00 EDT, Weight DosingStart: 13-78-5418Nvri DME Prescription, See Instructions, 100 strip(s), 3, True Metrix Test Strips Check AC&HS, [facility], Supply, 140.6, cm, 02/10/23 11:29:00 EDT, Height/Length Dosing, 79.2, kg, 02/10/23 11:29:00 EDT, Weight DosingStart: 94-40-7366KK STENT [place] ALP 2.25 X 15FDAStart: 06-24-2017 CL STENT [place] ALP 2.5 X 38FDAStart: 50-07-0559EG STENT XIENCE ALP 3.0 X 18FDA Start: 88-44-9333IGCFP [place] 7 X 24 135CMFDAStart: 90-40-9006HI STENT [place] ALP 2.25 X 15FDAStart: 83-20-7101PB STENT [place] ALP 2.5 X 38FDAStart: 78-32-2996WE STENT [place] ALP 3.0 X 18FDAStart: 25-20-7054PNSHF [place] 7 X 24 135CMFDAStart: 38-25-0657GO STENT [place] ALP 2.25 X 15FDAStart: 53-47-8640KR STENT [place] ALP 2.5 X 38FDAStart: 04-11-1660WC STENT [place] ALP 3.0 X 18FDA Start: 50-37-6226HVJXD [place] 7 X 24 135CMFDAStart: 97-29-1080US STENT [place] ALP 2.25 X 15FDAStart: 44-66-9176UE STENT [place] ALP 2.5 X 38FDAStart: 30-17-4004GV STENT [place] ALP 3.0 X 18FDAStart: 61-03-1146DFJJW [place] 7 X 24 135CMFDAStart: 73-12-9606UP STENT [place] ALP 2.25 X 15FDAStart: 13-52-3165EM STENT [place] ALP 2.5 X 38FDAStart: 90-18-2862GP STENT [place] ALP 3.0 X 18FDA Start: 06-97-9169VLRSQ [place] 7 X 24 135CMFDAStart: 24-31-9886RH STENT [place] ALP 2.25 X 15FDAStart: 69-23-0322HG STENT [place] ALP 2.5 X 38FDAStart: 88-04-2892QC STENT [place] ALP 3.0 X 18FDAStart: 53-93-1100LQQLQ [place] 7 X 24 135CMFDAStart: 39-44-8911LB STENT [place] ALP 2.25 X 15FDAStart: 53-97-2587DW STENT [place] ALP 2.5 X 38FDAStart: 14-63-1051DU STENT [place] ALP 3.0 X 18FDA Start: 83-98-5580CNSZZ [place] 7 X 24 135CMFDAStart: 80-98-2679IT STENT [place] ALP 2.25 X 15FDAStart: 45-67-5059NI STENT [place] ALP 2.5 X 38FDAStart: 72-72-6633SB STENT [place] ALP 3.0 X 18FDAStart: 77-14-6090KNUFL [place] 7 X 24 135CMFDAStart: 44-87-1157DI [place]ENT [place] ALP 2.25 X 15FDAStart: 86-88-9288XS STENT [place] ALP 2.5 X 38FDAStart: 40-84-1932NQ STENT [place] ALP 3.0 X 18FDA Start: 38-66-0454UTXRU [place] 7 X 24 135CMFDAStart: 26-45-5278CZ STENT [place] ALP 2.25 X 15FDAStart: 70-40-1891LQ STENT [place] ALP 2.5 X 38FDAStart: 58-40-3327MR STENT [place] ALP 3.0 X 18FDAStart: 38-27-6272HIQZZ [place] 7 X 24 135CMFDAStart: 19-06-4465CS STENT [place] ALP 2.25 X 15FDAStart: 30-59-0828EK STENT [place] ALP 2.5 X 38FDAStart: 16-66-4650FY STENT [place] ALP 3.0 X 18FDA Start: 07-49-7012CXFWB [place] 7 X 24 135CMFDAStart: 92-81-0583DA STENT [place] ALP 2.25 X 15FDAStart: 43-80-0306CI STENT [place] ALP 2.5 X 38FDAStart: 25-74-5556QW STENT [place] ALP 3.0 X 18FDAStart: 73-44-8732YZXVM [place] 7 X 24 135CMFDAStart: 78-38-7017BL STENT [place] ALP 2.25 X 15FDAStart: 79-16-2566IK STENT [place] ALP 2.5 X 38FDAStart: 40-64-3431FF STENT [place] ALP 3.0 X 18FDA Start: 70-51-5734NJTDU [place] 7 X 24 135CMFDAStart: 67-93-6248LX STENT [place] ALP 2.25 X 15FDAStart: 75-42-0316YC STENT [place] ALP 2.5 X 38FDAStart: 82-79-2565XO STENT [place] ALP 3.0 X 18FDAStart: 64-20-8440PYQSX [place] 7 X 24 135CMFDAStart: 43-36-8287MU STENT [place] ALP 2.25 X 15FDAStart: 50-55-1005MH STENT [place] ALP 2.5 X 38FDAStart: 31-10-3844QN STENT [place] ALP 3.0 X 18FDA Start: 02-36-6727LFQCP [place] 7 X 24 135CMFDAStart: 52-71-0549WZ STENT [place] ALP 2.25 X 15FDAStart: 97-93-4503UY STENT [place] ALP 2.5 X 38FDAStart: 79-55-1053FV STENT [place] ALP 3.0 X 18FDAStart: 99-47-6306BDVVG [place] 7 X 24 135CMFDAStart: 49-21-3738ZQ STENT [place] ALP 2.25 X 15FDAStart: 65-90-7118SS STENT [place] ALP 2.5 X 38FDAStart: 05-23-4452FP STENT [place] ALP 3.0 X 18FDA Start: 78-59-6450RBIGJ PALMAZ BLUE 7 X 24 135CMFDAStart: 13-32-7612NE STENT XIENCE ALP 2.25 X 15FDAStart: 19-27-6231LW STENT XIENCE ALP 2.5 X 38FDAStart: 73-86-1440YH STENT XIENCE ALP 3.0 X 18FDAStart: 04-70-1699TUMVD PALMAZ BLUE 7 X 24 135CMFDAStart: 40-06-0153TI STENT XIENCE ALP 2.25 X 15FDAStart: 94-93-6421GH STENT XIENCE ALP 2.5 X 38FDAStart: 15-01-9636ZM STENT XIENCE ALP 3.0 X 18FDA Start: 10-63-7329OQXFQ PALMAZ BLUE 7 X 24 135CMFDAStart: 32-67-8928JW STENT XIENCE ALP 2.25 X 15FDAStart: 63-92-7768OO STENT XIENCE ALP 2.5 X 38FDAStart: 00-58-1007IL STENT XIENCE ALP 3.0 X 18FDAStart: 41-91-2612TOXBV PALMAZ BLUE 7 X 24 135CMFDAStart: 92-54-3509BH STENT XIENCE ALP 2.25 X 15FDAStart: 36-92-2274NB STENT XIENCE ALP 2.5 X 38FDAStart: 80-10-3391ZJ STENT XIENCE ALP 3.0 X 18FDA Start: 63-92-9293TOIAR PALMAZ BLUE 7 X 24 135CMFDAStart: 77-65-7358CS STENT XIENCE ALP 2.25 X 15FDAStart: 29-47-1338KK STENT XIENCE ALP 2.5 X 38FDAStart: 51-44-8429TA STENT XIENCE ALP 3.0 X 18FDAStart: 84-14-1191JXZYX PALMAZ BLUE 7 X 24 135CMFDAStart: 18-69-2964WU STENT XIENCE ALP 2.25 X 15FDAStart: 73-07-1783NB STENT XIENCE ALP 2.5 X 38FDAStart: 61-61-8457YH STENT XIENCE ALP 3.0 X 18FDA Start: 80-10-5268PHFUZ PALMAZ BLUE 7 X 24 135CMFDAStart: 91-02-9263TH STENT XIENCE ALP 2.25 X 15FDAStart: 78-35-1712GT STENT XIENCE ALP 2.5 X 38FDAStart: 85-58-5813AV STENT XIENCE ALP 3.0 X 18FDAStart: 45-73-9408CVWPX PALMAZ BLUE 7 X 24 135CMFDAStart: 26-02-6630PQ STENT XIENCE ALP 2.25 X 15FDAStart: 31-25-6131QB STENT XIENCE ALP 2.5 X 38FDAStart: 67-52-4800UO STENT XIENCE ALP 3.0 X 18FDA Start: 64-80-2614IDGQV PALMAZ BLUE 7 X 24 135CMFDAStart: 46-97-5451PQAAjuxg: 27-94-6839TZJWlyqg: 29-29-6409BPMQcojz: 05-40-1084JKIYfmss: 95-81-1687RZBPhjks: 96-76-3365JCRHnfvo: 74-42-3633YNXYleuc: 32-66-5829WGIGoete: 89-13-5864TLGLtspo: 74-68-4019KPNJomqi: 44-18-4540NIQVlkez: 70-09-7249AWIRnqdg: 09-11-2017 Goals DatePatient GoalDesired Activity/StatePersonal health goalComment on above: Evaluation of progress towards goal: Home with spouse and [facility] services Functional Status VuxyEyzdkwaygmVzuxwuRrxfynmw44-98-0729Vqjpclclvj statusPatient at Baseline [facility] Work Phone: 1(860) [phone]tnxvus StatusNoMercy Health [facility]08-15-2024Functional StatusMercy Health Clermont Hospital07-30-2024 Functional StatusN/AExecutive Urology of [facility] [place] 85-69-0297Nuohehawvp statusPatient at BaselineC[facility] Work Phone: Mental Status RkzmPtebvtnnulRvrcgvIhbnajzb84-61-4769Xkcbsmmqs functionPatient at Baseline [facility] Work Phone: 1(856) 639-623507098806-66-1698Yfratyddz functionCognitive Status Patient at BaselineAcmc Healthcare [facility] Work Phone: Clinical Notes 11-11-2016 to 05-20-2025 Note Date & KfamNvrsDdijafcc78-73-6696 Miscellaneous Notes* Telephone Encounter - SHAWANDA Del Angel - 05/20/2025 12:29 PM EST Please schedule apt with any physician (pt was seen by Dr Couch, Dr Mosqueda, Dr Mcgee, and Dr Holcomb while inpatient) in 2-3 months with PFTs, thank you! documented in this encounterOhio[facility]11-07-2025 Telephone encounter Note* Telephone Encounter - SHAWANDA Del Angel - 05/20/2025 12:29 PM EST Please schedule apt with any physician (pt was seen by Dr Couch, Dr Mosqueda, Dr Mcgee, and Dr Holcomb while inpatient) in 2-3 months with PFTs, thank you! [facility] Work Phone: 1([phone]) [phone] Miscellaneous Notes* Telephone Encounter - Mer Jean-Baptiste RPH - 05/18/2025 11:44 AM EST Faxed referral form for heart failure management received along with med list and recent visit note, but referral is not signed. Documents refaxed to Dr. Stefan Best's office requesting signature onreferral form. Of note, patient is still admitted at [facility]. documented in this encounterOhioHealth Southeastern Medical Center11-05-2025 Telephone encounter Note* Telephone Encounter - Mer Jean-Baptiste [facility] - 05/18/2025 11:44 AM EST Faxed referral form for heart failure management received along with med list and recent visit note, but referral is not signed. Documents refaxed to Dr. Stefan Best's office requesting signature onreferral form. Of note, patient is still admitted at [facility]. [facility] Work Phone: [phone] History of Present illness Narrative* Sanna Mays - 05/13/2025 1:24 PM EDT Identified by inpatient [facility] for MTM. documented in this encounterOhioHealth Southeastern Medical Center09-26-2025 Consult note Author Montana Cobb [facility] Medical CenterNote Date/TimeSeptember 2024 3:46pm [place] [address] Cardiology Consult Note Signed Patient: Lexi Ttaum MR#: [id number] : 1945 Acct:[id number] Age/Sex: 79 / F Adm Date: 5 Loc: Room: [address] [place] [address] Type: ADM IN Attending Dr: Mateo Schaeffer MD Copies to: MD Stefan Gorman MD Rebekah M Farris, DO, RES Montana Cobb DO~ Cardiology HPI History of Present Illness Consult Date: 04/08/25 Reason for Consult: CHF exacerbation, elevated troponin HPI: Ms. Tatum is a 79 year old female seen in cardiology consultation at request of hospitalist and in conjunction with Dr. Jett, second year of medical scientist; I agree with her evaluation, management, I have discussed and interviewed and examined the patient concurrently as well as reviewed echo at bedside this afternoon. 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 Reza kwoknt recent total hip replacement and subsequently followed by home health nurse; she reportsthat for the last 5 days she has had shortness of breath. She did have a URI with some cough and congestion associated with the shortness of breath, but after her cough and congestion improved, she was still having shortness of breath for which her home health nurse was concerned for PE. She deniesorthopnea, but does report some LE edema and increased SOB. She presented to the [place] [facility] and had a perfusion study that was low risk forPE, but she was found to have BNP of over 6500 and significant lower extremity edema. Her troponin was initially mildlyelevated at 66, but it has stablized and down-trended to 48. Chest x-ray cannot be viewed from the [place] [facility]. Shehas been hemodynamically stable, and she [...] with Definity contrast; revealing ejection fraction of 48to 50% by my visual estimation; with inferior [...] possible discharge home Friday or Friday to follow- upwith cardiology for ongoing management [facility] Medical History (Updated 04/08/25 @ 01:01 by uJice Mackenzie DO) Class 1 drug-induced obesity with [...] with insertion of prosthetic lens History of xkajz-rbiga-aphipio bypass History of renal stent History of [...] (ferrous sulfate)) 325 mg PO TID 02/08/25 [HistoryConfirmed 04/07/25] gabapentin 300 mg capsule See Rx Instructions .Route .COMPLEX #60 ea 02/28/25 [Rx Confirmed 04/07/25] allopurinol 300 mg tablet See Rx Instructions .Route .COMPLEX #30 ea 03/01/25 [Rx Confirmed 04/07/25] insulin glargine 100 unit/mL (3 mL) subcutaneous pen (Lantus Solostar U-100 Insulin) 55 unit subcutQHS 03/03/25 [History Confirmed 04/07/25] potassium chloride 10 [...] x10E3/uL Lymph # (Auto) 1.2 (1.00-4.8) x10E3/uL Edgar # (Auto) 0.7 (0.0-0.8) x10E3/uL Eos # [...] Code(s): I25.10 - Atherosclerotic heart disease of [place] coronary artery without angina pectoris (3) CKD [...] Cobb DO> 04/08/25 1546 <Electronically signed by DO GRIS Nazario> 04/08/25 1400 [facility] Work Phone: 1(814) 147-943309-26-2025 Progress note Author Mateo Schaeffer [facility] CenterNote Date/TimeSeptember 2024 1:31pm [place] [address] Hospitalist Progress Note Signed Patient: Lexi Tatum MR#: [id number] : 1945 Acct:[id number] Age/Sex: 79 / F Adm Date: 5 Loc: Room: [address] [place] [address] Type: ADM IN Attending Dr: Mateo Schaeffer [...] of care and confirmed it with the re sident/student/[employer]. Pt evaluated at bedside today. No acute events overnight. She reports feeling better overall today.She is no longer on supplemental oxygen but [...] 09:00 04/08/25 08:46 Aspirin [address] JOHNSON 04/08/26 08:59 81 mg DAILY REBA Administration [...] Mg/4 Ml Vial IV-PUSH 04/08/26 07:59 BID@0800,1600 [facility] Gabapentin 300 mg 04/08/25 09:00 04/08/25 08:46 Gabapentin 300 Mg Capsule PO 04/08/26 08:59 300 mg BID REBA Administration Glucose 0 gm 04/08/25 01:05 Dextrose 40% Gel 15 Gm Tube PO 04/08/26 01:04 PRN PRN Hypoglycemia Insulin Glargine 55 units 04/08/25 22:00 Insulin Glargine 300 Units/3 Ml Insuln.Pen SUBCUT 04/08/26 21:59 QHS [facility] Melatonin 5 mg 04/08/25 00:12 Melatonin 5 [...] over last few days/weeks. She is feeling bettertoday, but still has edema in bilateral LE [...] ordered ? Cardiology consulted, she follows with [facility] but has not seen a front desk agent since Dr. Morales retired ? Strict I's and O's ? Daily weights (2) Coronary artery disease: ? Her troponin were mildly elevated at 66 at [place], have decreased to 61 withtoday's early labs [...] signed by Mateo Schaeffer MD> 04/08/25 1331 [facility] Work Phone: 1(958) 939-731609-26-2025 History and physical note Author Juice Mackenzie [facility] CenterNote Date/TimeSeptember 2024 1:05am [place] [address] Hospitalist H&P Signed Patient: Lexi Tatum MR#: [id number] : 1945 Acct:[id number] Age/Sex: 79 / F Adm Date: 5 Loc: Room: [address] [place] [address] Type: ADM IN Attending Dr: Juice Mackenzie [...] chief complaint of worsening edema and worsening s hortness of breath over the last couple of days/weeks. She been noticing some worsening shortness of breath, especially with ambulation lately, she denies anycoughing or symptoms of orthopnea howeverher home health nurse was visiting yesterday and was concerned for a pulmonary embolism due to her dyspnea and she was subsequent sent to the emergency room. She was evaluated emergency room at [facility], found to have elevated BNP with lower extremity edema and congestion on her chest x-ray, she was diagnosed with acute CHF. Due to concernfor a PE, her creatinine did preclude a CTA of her chest so a VQ scan was performed in emergency room and showed low probability for PE. Due to there notbeing any front desk agent at [facility], she was subsequently transferred here for evaluation. Review of Systems Review of Systems All other systems reviewed & are negative unless noted below or in HPI [facility] Medical History (Updated 04/08/25 @ 01:01 [...] with insertion of prosthetic lens History of ocpvw-xgjsy-zgoszqs bypass History of renal stent History of [...] (ferrous sulfate)) 325 mg PO TID 02/08/25 [HistoryConfirmed 04/07/25] gabapentin 300 mg capsule See Rx Instructions .Route .COMPLEX #60 ea 02/28/25 [Rx Confirmed 04/07/25] allopurinol 300 mg tablet See Rx Instructions .Route .COMPLEX #30 ea 03/01/25 [Rx Confirmed 04/07/25] insulin glargine 100 unit/mL (3 mL) subcutaneous pen (Lantus Solostar U-100 Insulin) 55 unit subcutQHS 03/03/25 [History Confirmed 04/07/25] potassium chloride 10 [...] of movements, no calf tenderness, 3 pitting edemathroughout her bilateral lower extremities up to hermid thighs Neuro: AOx3, CN II-VII intact. Moves all extremities in all planes of motion. Skin: dry, intact no rashes or lesions Results - Hospitalist H&P Lab Results Labs: Laboratory Last Values POC Glucose 109 mg/dl 04/08/25 00:03 Assessment & Plan Assessment/Plan (1) CHF exacerbation: Plan: ? Admit to [facility], inpatient status with telemetry ? Physical exam and presentation is consistent with CHF exacerbation ? She is currently requiring 2 L supplemental oxygenation ? Continue with Lasix 40 mg IV push twice daily, hold her p.o. Lasix ? Transthoracic echocardiogram ordered ? Continue remainder of her home medications including carvedilol ? Aspirin and Plavix ordered ? Cardiology consulted, she follows with [facility] but has not seen a front desk agent since Dr. Morales retired ? Strict I's [...] troponin were mildly elevated at 66 at [place], we will trend this upon admission here Plan ? DVT prophylaxis addressed ? Regular diet with a fluid restriction ? Full code IP vs OBS Justification Based on differential dx, clinical care plan, and risk of adverse events, if untreated, in my clinical judgement this patient requires an acute care setting as: INPATIENT because of an expectation ofan over 2 midnight stay. Estimated length of stay (# of days): 3 Documented By: Juice Mackenzie DO 04/08/25 005 Signed By: <Electronically signed by Juice Mackenzie DO> 04/08/25 0105 [facility] Work Phone: 1(348) 774-203907-29-2025 Evaluation note* Diagnosis Onset Date Resolution Status Admit Date Anemia of renal disease acuteJuly 2024 3:30pmCKD (chronic kidney disease) stage 4, GFR 15-29 ml/minacuteJuly 2024 3:30pmHyperlipidemiaacuteJuly 2024 3:30pm Hypertensive chronic kidney disease with stage 1 through stage 4 chronic kiacute Esme 2024 3:30pmProteinuriaacuteJuly 2024 3:30pmSecondary hyperparathyroidismacuteJuly 2024 3:30pmGoutresolvedJuly 2024 3:30pm Type 2 diabetes mellitus with diabetic chronic kidney diseaseresolvedJuly 2024 3:30pmOsteoarthritis of left hipacuteAugust 2024 2:04pmCAD (coronary artery disease)acuteSept2024 10:00amHeart failure, unspecifiedacute March 21, 2025 10:00amHyperlipidemiaacuteSept2024 10:00am HypertensionacuteSept2024 10:00amMorbid (severe) obesity due to excess caloriesacuteSept2024 10:00amOsteoarthritis of left hipacute March 21, 2025 10:00amS/P total left hip arthroplastyacuteSept2024 10:00amWeaknessacuteSept2024 10:00amCKD (chronic kidney disease) acuteSept2024 5:26pmCKD (chronic kidney disease) stage 4, GFR 15-29 ml/minacuteSeptember 2024 5:26pmHyperlipidemiaacuteSeptember 2024 5:26pmHypertensionacuteSeptember 2024 5:26pmImpaired mobilityacuteSept2024 5:26pmPAD (peripheral artery disease)acuteSept2024 5:26pm S/P total left hip arthroplastyacuteSeptember 2024 5:26pmType 2 diabetes mellitus with hyperglycemiaacuteSept2024 5:26pmAcute on chronic systolic (congestive) heart failureresolvedSept2024 5:26pmSteroid- induced hyperglycemiaresolvedSeptember 2024 5:26pmAftercare following left hip joint replacement surgeryacuteSept2024 2:07pmS/P total left hip arthroplastyacuteSept2024 2:07pmCKD (chronic kidney disease)acute April 07, 2025 11:35pmCHF exacerbationresolvedSept2024 11:35pm Coronary artery diseaseresolvedSept2024 11:35pmGoutresolvedSept2024 11:35pmIschemic cardiomyopathyresolvedSept2024 11:35pm Steroid-induced hyperglycemiaresolvedSept2024 11:35pmType 2 diabetes mellitus with diabetic chronic kidney diseaseresolvedSept2024 11:35pm [facility] Work Phone: 1(743) 998-196607-21-2025 Evaluation note* Diagnosis Onset Date Resolution Status Admit Date CKD (chronic kidney disease) stage 4, GF R 15-29 ml/min acuteJuly 2024 3:29pmHypertensionacuteJuly 2024 3:29pmOsteoarthritis of left hipacuteJuly 2024 3:29pmPreoperative examinationacuteJuly 2024 3:29pmType 2 diabetes mellitus with hyperglycemiaacuteJuly 2024 3:29pmAcute on chronic systolic (congestive) heart failureresolvedJuly 2024 3:29pmAnemia of renal diseaseacuteJuly 2024 3:30pmCKD (chronic kidney disease) stage 4, GFR 15-29 ml/minacuteJuly 2024 3:30pmHyperlipidemiaacute Esme 2024 3:30pmHypertensive chronic kidney disease with stage 1 through stage 4 chronic kiacuteJuly 2024 3:30pmProteinuriaacuteJuly 2024 3:30pmSecondary hyperparathyroidismacuteJuly 2024 3:30pmGoutresolvedJuly 2024 3: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 resolvedJuly 2024 3:30pmOsteoarthritis of left hipacuteAugust 2024 2:04pmCAD (coronary artery disease)acuteSept2024 10:00amHeart failure, unspecifiedacuteSept2024 10:00amHyperlipidemiaacuteSeptember 2024 10:00amHypertensionacuteSeptember 2024 10:00amMorbid (severe) obesity due to excess caloriesacuteSept2024 10:00amOsteoarthritis of left hipacuteSept2024 10:00amS/P total left hip arthroplastyacute March 21, 2025 10:00amWeaknessacuteSeptember 2024 10:00amCKD (chronic kidney disease)acuteSeptember 2024 5:26pmCKD (chronic kidney disease) stage 4, GFR 15-29 ml/minacuteSeptember 2024 5:26pmHyperlipidemiaacuteSeptember 2024 5:26pmHypertensionacuteSeptember 2024 5:26pmImpaired mobility acuteSeptember 2024 5:26pmPAD (peripheral artery disease)acuteSeptember 2024 5:26pmS/P total left hip arthroplastyacuteSeptember 2024 5:26pm Type 2 diabetes mellitus with hyperglycemiaacuteSeptember 2024 5:26pmAcute on chronic systolic (congestive) heart failureresolvedSeptember 2024 5:26pm Steroid-induced hyperglycemiaresolvedSeptember 2024 5:26pmAftercare following left hip joint replacement surgeryacuteSept2024 2:07pmS/P total left hip arthroplastyacuteSeptember 2024 2:07pmCKD (chronic kidney disease)acuteSept2024 11:35pmCHF exacerbationresolvedSept2024 11:35pmCoronary artery diseaseresolvedSept2024 11:35pmGout resolvedSept2024 11:35pmIschemic cardiomyopathyresolvedSept2024 11:35pmSteroid-induced hyperglycemiaresolvedSept2024 11:35pmType 2 diabetes mellitus with diabetic chronic kidney diseaseresolved April 07, 2025 11:35pm [facility] Work Phone: 1(837) 775-319307-01-2025 Evaluation note* Diagnosis Onset Date Resolution Status Admit Date Acute on chronic systolic (congestive) h eart failure acuteJuly 2024 3:11pmCKD (chronic kidney disease) stage 4, GFR 15-29 ml/min acuteJuly 2024 3:11pmHypertensionacuteJuly 2024 3:11pmMorbid (severe) obesity due to excess caloriesacuteJuly 2024 3:11pmOsteoarthritis of left hipacuteJuly 2024 3:11pmType 2 diabetes mellitus with hyperglycemiaacute January 11, 2025 3:11pmAcute on chronic systolic (congestive) heart failureacute January 31, 2025 3:29pmCKD (chronic kidney disease) stage 4, GFR 15-29 ml/min acuteJuly 2024 3:29pmHypertensionacuteJuly 2024 3:29pmOsteoarthritis of left hipacuteJuly 2024 3:29pmPreoperative examinationacuteJuly 2024 3:29pmType 2 diabetes mellitus with hyperglycemiaacuteJuly 2024 3:29pmAnemia of renal diseaseacuteJuly 2024 3:30pmCKD (chronic kidney disease) stage 4, GFR 15-29 ml/minacuteJuly 2024 3:30pmGoutacuteJuly 2024 3:30pmHyperlipidemiaacuteJuly 2024 3:30pmHypertensive chronic kidney disease with stage 1 through stage 4 chronic kiacuteJuly 2024 3:30pm ProteinuriaacuteJuly 2024 3:30pmSecondary hyperparathyroidismacuteJuly 2024 3: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 acuteJuly 2024 3:30pm [facility] Work Phone: 1(118) 371-921207-01-2025 Evaluation note* Diagnosis Onset Date Resolution Status Admit Date Acute on chronic systolic (congestive) h eart failure acuteJuly 2024 3:11pmCKD (chronic kidney disease) stage 4, GFR 15-29 ml/min acuteJuly 2024 3:11pmHypertensionacuteJuly 2024 3:11pmMorbid (severe) obesity due to excess caloriesacuteJuly 2024 3:11pmOsteoarthritis of left hipacuteJuly 2024 3:11pmType 2 diabetes mellitus with hyperglycemiaacute January 11, 2025 3:11pmAcute on chronic systolic (congestive) heart failureacute January 31, 2025 3:29pmCKD (chronic kidney disease) stage 4, GFR 15-29 ml/min acuteJuly 2024 3:29pmHypertensionacuteJuly 2024 3:29pmOsteoarthritis of left hipacuteJuly 2024 3:29pmPreoperative examinationacuteJuly 2024 3:29pmType 2 diabetes mellitus with hyperglycemiaacuteJuly 2024 3:29pmAnemia of renal diseaseacuteJuly 2024 3:30pmCKD (chronic kidney disease) stage 4, GFR 15-29 ml/minacuteJuly 2024 3:30pmGoutacuteJuly 2024 3:30pmHyperlipidemiaacuteJuly 2024 3:30pmHypertensive chronic kidney disease with stage 1 through stage 4 chronic kiacuteJuly 2024 3:30pm ProteinuriaacuteJuly 2024 3:30pmSecondary hyperparathyroidismacuteJuly 2024 3: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 acuteJuly 2024 3:30pmOsteoarthritis of left hipacuteAugust 2024 2:04pm [facility] Work Phone: 1(707) 847-220007-01-2025 Evaluation note* Diagnosis Onset Date Resolution Status Admit Date Acute on chronic systolic (congestive) h eart failure acuteJuly 2024 3:11pmCKD (chronic kidney disease) stage 4, GFR 15-29 ml/min acuteJuly 2024 3:11pmHypertensionacuteJuly 2024 3:11pmMorbid (severe) obesity due to excess caloriesacuteJuly 2024 3:11pmOsteoarthritis of left hipacuteJuly 2024 3:11pmType 2 diabetes mellitus with hyperglycemiaacute January 11, 2025 3:11pmAcute on chronic systolic (congestive) heart failureacute January 31, 2025 3:29pmCKD (chronic kidney disease) stage 4, GFR 15-29 ml/min acuteJuly 2024 3:29pmHypertensionacuteJuly 2024 3:29pmOsteoarthritis of left hipacuteJuly 2024 3:29pmPreoperative examinationacuteJuly 2024 3:29pmType 2 diabetes mellitus with hyperglycemiaacuteJuly 2024 3:29pmAnemia of renal diseaseacuteJuly 2024 3:30pmCKD (chronic kidney disease) stage 4, GFR 15-29 ml/minacuteJuly 2024 3:30pmGoutacuteJuly 2024 3:30pmHyperlipidemiaacuteJuly 2024 3:30pmHypertensive chronic kidney disease with stage 1 through stage 4 chronic kiacuteJuly 2024 3:30pm ProteinuriaacuteJuly 2024 3:30pmSecondary hyperparathyroidismacuteJuly 2024 3: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 acuteJuly 2024 3:30pmOsteoarthritis of left hipacuteAugust 2024 2:04pmCAD (coronary artery disease)acuteSeptember 2024 10:00amS/P total left hip arthroplastyacuteSept2024 10:00am [facility] Work Phone: 1(267) 559-160407-01-2025 Evaluation note* Diagnosis Onset Date Resolution Status Admit Date Acute on chronic systolic (congestive) h eart failure acuteJuly 2024 3:11pmCKD (chronic kidney disease) stage 4, GFR 15-29 ml/min acuteJuly 2024 3:11pmHypertensionacuteJuly 2024 3:11pmMorbid (severe) obesity due to excess caloriesacuteJuly 2024 3:11pmOsteoarthritis of left hipacuteJuly 2024 3:11pmType 2 diabetes mellitus with hyperglycemiaacute January 11, 2025 3:11pmAcute on chronic systolic (congestive) heart failureacute January 31, 2025 3:29pmCKD (chronic kidney disease) stage 4, GFR 15-29 ml/min acuteJuly 2024 3:29pmHypertensionacuteJuly 2024 3:29pmOsteoarthritis of left hipacuteJuly 2024 3:29pmPreoperative examinationacuteJuly 2024 3:29pmType 2 diabetes mellitus with hyperglycemiaacuteJuly 2024 3:29pmAnemia of renal diseaseacuteJuly 2024 3:30pmCKD (chronic kidney disease) stage 4, GFR 15-29 ml/minacuteJuly 2024 3:30pmGoutacuteJuly 2024 3:30pmHyperlipidemiaacuteJuly 2024 3:30pmHypertensive chronic kidney disease with stage 1 through stage 4 chronic kiacuteJuly 2024 3:30pm ProteinuriaacuteJuly 2024 3:30pmSecondary hyperparathyroidismacuteJuly 2024 3: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 acuteJuly 2024 3:30pmOsteoarthritis of left hipacuteAugust 2024 2:04pmCAD (coronary artery disease)acuteSeptember 2024 10:00amHeart failure, unspecifiedacuteSept2024 10:00amHyperlipidemiaacuteSeptember 2024 10:00amHypertensionacuteSept2024 10:00amMorbid (severe) obesity due to excess caloriesacuteSept2024 10:00amOsteoarthritis of left hipacuteSept2024 10:00amS/P total left hip arthroplastyacute March 21, 2025 10:00amWeaknessacuteSeptember 2024 10:00amAcute on chronic systolic (congestive) heart failureacuteSeptember 2024 5:26pmCKD (chronic kidney disease)acuteSept2024 5:26pmCKD (chronic kidney disease) stage 4, GFR 15-29 ml/minacuteSeptember 2024 5:26pmHyperlipidemia acuteSeptember 2024 5:26pmHypertensionacuteSeptember 2024 5:26pm Impaired mobilityacuteSeptember 2024 5:26pmPAD (peripheral artery disease) acuteSept2024 5:26pmS/P total left hip arthroplastyacuteSept2024 5:26pmSteroid-induced hyperglycemiaacuteSept2024 5:26pmType 2 diabetes mellitus with hyperglycemiaacuteSept2024 5:26pm [facility] [facility] Work Phone: 1(263) 241-386007-01-2025 Evaluation note* Diagnosis Onset Date Resolution Status Admit Date Acute on chronic systolic (congestive) h eart failure acuteJuly 2024 3:11pmCKD (chronic kidney disease) stage 4, GFR 15-29 ml/min acuteJuly 2024 3:11pmHypertensionacuteJuly 2024 3:11pmMorbid (severe) obesity due to excess caloriesacuteJuly 2024 3:11pmOsteoarthritis of left hipacuteJuly 2024 3:11pmType 2 diabetes mellitus with hyperglycemiaacute January 11, 2025 3:11pmAcute on chronic systolic (congestive) heart failureacute January 31, 2025 3:29pmCKD (chronic kidney disease) stage 4, GFR 15-29 ml/min acuteJuly 2024 3:29pmHypertensionacuteJuly 2024 3:29pmOsteoarthritis of left hipacuteJuly 2024 3:29pmPreoperative examinationacuteJuly 2024 3:29pmType 2 diabetes mellitus with hyperglycemiaacuteJuly 2024 3:29pmAnemia of renal diseaseacuteJuly 2024 3:30pmCKD (chronic kidney disease) stage 4, GFR 15-29 ml/minacuteJuly 2024 3:30pmGoutacuteJuly 2024 3:30pmHyperlipidemiaacuteJuly 2024 3:30pmHypertensive chronic kidney disease with stage 1 through stage 4 chronic kiacuteJuly 2024 3:30pm ProteinuriaacuteJuly 2024 3:30pmSecondary hyperparathyroidismacuteJuly 2024 3: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 acuteJuly 2024 3:30pmOsteoarthritis of left hipacuteAugust 2024 2:04pmCAD (coronary artery disease)acuteSept2024 10:00amHeart failure, unspecifiedacuteSeptember 2024 10:00amHyperlipidemiaacuteSeptember 2024 10:00amHypertensionacuteSeptember 2024 10:00amMorbid (severe) obesity due to excess caloriesacuteSept2024 10:00amOsteoarthritis of left hipacuteSeptember 2024 10:00amS/P total left hip arthroplastyacute March 21, 2025 10:00amWeaknessacuteSeptember 2024 10:00amAcute on chronic systolic (congestive) heart failureacuteSeptember 2024 5:26pmCKD (chronic kidney disease)acuteSeptember 2024 5:26pmCKD (chronic kidney disease) stage 4, GFR 15-29 ml/minacuteSeptember 2024 5:26pmHyperlipidemia acuteSeptember 2024 5:26pmHypertensionacuteSeptember 2024 5:26pm Impaired mobilityacuteSeptember 2024 5:26pmPAD (peripheral artery disease) acuteSeptember 2024 5:26pmS/P total left hip arthroplastyacuteSeptember 2024 5:26pmSteroid-induced hyperglycemiaacuteSeptember 2024 5:26pmType 2 diabetes mellitus with hyperglycemiaacuteSeptember 2024 5:26pmS/P total left hip arthroplastyacuteSeptember 2024 2:07pm [facility] Work Phone: 1(117) 396-605307-01-2025 Evaluation note* Diagnosis Onset Date Resolution Status Admit Date Acute on chronic systolic (congestive) h eart failure acuteJuly 2024 3:11pmCKD (chronic kidney disease) stage 4, GFR 15-29 ml/min acuteJuly 2024 3:11pmHypertensionacuteJuly 2024 3:11pmMorbid (severe) obesity due to excess caloriesacuteJuly 2024 3:11pmOsteoarthritis of left hipacuteJuly 2024 3:11pmType 2 diabetes mellitus with hyperglycemiaacute January 11, 2025 3:11pmAcute on chronic systolic (congestive) heart failureacute January 31, 2025 3:29pmCKD (chronic kidney disease) stage 4, GFR 15-29 ml/min acuteJuly 2024 3:29pmHypertensionacuteJuly 2024 3:29pmOsteoarthritis of left hipacuteJuly 2024 3:29pmPreoperative examinationacuteJuly 2024 3:29pmType 2 diabetes mellitus with hyperglycemiaacuteJuly 2024 3:29pmAnemia of renal diseaseacuteJuly 2024 3:30pmCKD (chronic kidney disease) stage 4, GFR 15-29 ml/minacuteJuly 2024 3:30pmGoutacuteJuly 2024 3:30pmHyperlipidemiaacuteJuly 2024 3:30pmHypertensive chronic kidney disease with stage 1 through stage 4 chronic kiacuteJuly 2024 3:30pm ProteinuriaacuteJuly 2024 3:30pmSecondary hyperparathyroidismacuteJuly 2024 3: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 acuteJuly 2024 3:30pmOsteoarthritis of left hipacuteAugust 2024 2:04pmCAD (coronary artery disease)acuteSeptember 2024 10:00amHeart failure, unspecifiedacuteSeptember 2024 10:00amHyperlipidemiaacuteSeptember 2024 10:00amHypertensionacuteSeptember 2024 10:00amMorbid (severe) obesity due to excess caloriesacuteSeptember 2024 10:00amOsteoarthritis of left hipacuteSept2024 10:00amS/P total left hip arthroplastyacute March 21, 2025 10:00amWeaknessacuteSeptember 2024 10:00amAcute on chronic systolic (congestive) heart failureacuteSeptember 2024 5:26pmCKD (chronic kidney disease)acuteSeptember 2024 5:26pmCKD (chronic kidney disease) stage 4, GFR 15-29 ml/minacuteSeptember 2024 5:26pmHyperlipidemia acuteSeptember 2024 5:26pmHypertensionacuteSeptember 2024 5:26pm Impaired mobilityacuteSeptember 2024 5:26pmPAD (peripheral artery disease) acuteSeptember 2024 5:26pmS/P total left hip arthroplastyacuteSeptember 2024 5:26pmSteroid-induced hyperglycemiaacuteSeptember 2024 5:26pmType 2 diabetes mellitus with hyperglycemiaacuteSeptember 2024 5:26pmAftercare following left hip joint replacement surgeryacuteSeptember 2024 2:07pmS/P total left hip arthroplastyacuteSeptember 2024 2:07pmCHF exacerbationacute April 07, 2025 11:35pmCKD (chronic kidney disease)acuteSept2024 11:35pmCoronary artery diseaseacuteSept2024 11:35pmGoutacute April 07, 2025 11:35pmIschemic cardiomyopathyacuteSeptember 2024 11:35pmSteroid-induced hyperglycemiaacuteSeptember 2024 11:35pmType 2 diabetes mellitus with diabetic chronic kidney diseaseacuteSept2024 11:35pm [facility] Work Phone: 1(346) 699-525705-05-2025 Evaluation note* Diagnosis Onset Date Resolution Status Admit Date UTI (urinary tract infection), bacterial acuteMay 2024 3:16pm [facility] Work Phone: 1(635) 680-824305-05-2025 Evaluation note* Diagnosis Onset Date Resolution Status Admit Date UTI (urinary tract infection), bacterial acuteMay 2024 3:16pmAcute on chronic systolic (congestive) heart failure acuteJuly 2024 3:11pmCKD (chronic kidney disease) stage 4, GFR 15-29 ml/min acuteJuly 2024 3:11pmHypertensionacuteJuly 2024 3:11pmMorbid (severe) obesity due to excess caloriesacuteJuly 2024 3:11pmOsteoarthritis of left hipacuteJuly 2024 3:11pmType 2 diabetes mellitus with hyperglycemiaacute January 11, 2025 3:11pm [facility] Work Phone: 1(154) 705-610405-05-2025 Evaluation note* Diagnosis Onset Date Resolution Status Admit Date UTI (urinary tract infection), bacterial acuteMay 2024 3:16pmAcute on chronic systolic (congestive) heart failure acuteJuly 2024 3:11pmCKD (chronic kidney disease) stage 4, GFR 15-29 ml/min acuteJuly 2024 3:11pmHypertensionacuteJuly 2024 3:11pmMorbid (severe) obesity due to excess caloriesacuteJuly 2024 3:11pmOsteoarthritis of left hipacuteJuly 2024 3:11pmType 2 diabetes mellitus with hyperglycemiaacute January 11, 2025 3:11pmAcute on chronic systolic (congestive) heart failureacute January 31, 2025 3:29pmCKD (chronic kidney disease) stage 4, GFR 15-29 ml/min acuteJuly 2024 3:29pmHypertensionacuteJuly 2024 3:29pmOsteoarthritis of left hipacuteJuly 2024 3:29pmPreoperative examinationacuteJuly 2024 3:29pmType 2 diabetes mellitus with hyperglycemiaacuteJuly 2024 3:29pmAnemia of renal diseaseacuteJuly 2024 3:30pmCKD (chronic kidney disease) stage 4, GFR 15-29 ml/minacuteJuly 2024 3:30pmGoutacuteJuly 2024 3:30pmHyperlipidemiaacuteJuly 2024 3:30pmHypertensive chronic kidney disease with stage 1 through stage 4 chronic kiacuteJuly 2024 3:30pm ProteinuriaacuteJuly 2024 3:30pmSecondary hyperparathyroidismacuteJuly 2024 3: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 acuteJuly 2024 3:30pm [facility] Work Phone: 1(339) 143-791203-24-2025 Evaluation note* Diagnosis Onset Date Resolution Status Admit Date CKD (chronic kidney disease) stage 4, GF R 15-29 ml/min acuteMarch 2024 3:28pmHypertensionacuteMarch 2024 3:28pm Osteoarthritis of left hipacuteMarch 2024 3:28pmUTI (urinary tract infection), bacterialacuteMarch 2024 3:28pmWeaknessacuteMarch 2024 3:28pmUTI (urinary tract infection), bacterialacuteMay 2024 3:16pm [facility] Work Phone: 1(484) 248-332703-24-2025 Evaluation note* Diagnosis Onset Date Resolution Status Admit Date CKD (chronic kidney disease) stage 4, GF R 15-29 ml/min acuteMarch 2024 3:28pmHypertensionacuteMarch 2024 3:28pm Osteoarthritis of left hipacuteMarch 2024 3:28pmUTI (urinary tract infection), bacterialacuteMarch 2024 3:28pmWeaknessacuteMarch 2024 3:28pm [facility] Work Phone: 1(683) 827-712701-30-2025 Evaluation + Plan note* Assessment & Plan Note - SHAWANDA Parham - 08/12/2024 9:45 AM ESTAssociated Problem(s): BMI 33.0-33.9,adult Reviewed the merits of healthy lifestyle choices on overall cardiovascular health. [facility] Work Phone: 1(654) 302-102901-30-2025 Evaluation + Plan note* Assessment & Plan Note - SHAWANDA Parham - 08/12/2024 9:45 AM ESTAssociated Problem(s): Type 2 diabetes mellitus On WILLIAMS/statin Recent hemoglobin A1c 8.2 [facility] Work Phone: 1(673) 263-882701-30-2025 Evaluation + Plan note* Assessment & Plan Note - SHAWANDA Parham - 08/12/2024 9:45 AM ESTAssociated Problem(s): PVD (peripheral vascular disease) ([facility]) She has extensive history of peripheral arterial disease including July 2018 open AAA repair 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 Chanel retired. During January 2024 hospitalization for hydronephrosis she had a CT of the abdomen that was unremarkable in regards to aortic aneurysm. 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 documented in this [facility] Work Phone: 1(272) 142-455901-30-2025 Evaluation + Plan note* Assessment & Plan Note - SHAWANDA Parham - 08/12/2024 9:43 AM ESTAssociated Problem(s): Ischemic cardiomyopathy Ischemic cardiomyopathy heart failure borderline ejection fraction 48% October 2023 MPI Currently no SGLT2 due to acute kidney injury during hospitalization 2023 [facility] Work Phone: 1(189) 521-715201-30-2025 Evaluation + Plan note* Assessment & Plan Note - SHAWANDA Parham - 08/12/2024 9:42 AM ESTAssociated Problem(s): Hyperlipidemia Moderate intensity statin [facility] Work Phone: 1(315) 566-577701-30-2025 Evaluation + Plan note* Assessment & Plan Note - SHAWANDA Parham - 08/12/2024 9:41 AM ESTAssociated Problem(s): HTN (hypertension) Asymptomatic hypotension noted in the office today. [facility] Work Phone: 1(344) 402-422201-30-2025 Evaluation + Plan note* Assessment & Plan Note - SHAWANDA Parham - 08/12/2024 9:41 AM ESTAssociated Problem(s): CAD, multiple vessel November 2016 CABG x 15 June 2017 cardiac cath Distal/mid RCA PCI/GURU x 2 HACKETT-LAD was patent Sequential saphenous vein graft from PDA-OM was occluded LVEF 45% October 2023 MPI no ischemia, no infarct. EF 48%. Current daily activity less than 4 METS. 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 Voice recognition software was utilized to prepare this document. documented in this [facility] Work Phone: 1(177) 713-604901-29-2025 Instructions* Patient Instructions* SHAWANDA Parham - 08/11/2024 [...] annual unless abnormal testing documented in this [facility] Work Phone: 1(157) 587-684901-21-2025 Evaluation note* Diagnosis Onset Date Resolution Status Admit Date Anemia of renal disease 2024 10:50amCKD (chronic kidney disease) stage 4, GFR 15-29 ml/minacuteAugust 03, 2024 10:50amGoutacuteJan2024 10:50am HyperlipidemiaacuteAugust 03, 2024 10:50amHypertensive chronic kidney disease with stage 1 through stage 4 chronic kiacuteAugust 03, 2024 10:50am Proteinuria2024 10:50amSecondary hyperparathyroidismacute August 03, 2024 10:50amType 2 diabetes mellitus with diabetic chronic kidney disease2024 10:50am [facility] Work Phone: 1(161) 169-773501-21-2025 Evaluation note* Diagnosis Onset Date Resolution Status Admit Date Anemia of renal disease 2024 10:50amCKD (chronic kidney disease) stage 4, GFR 15-29 ml/minacuteAugust 03, 2024 10:50amGoutacuteJan2024 10:50am HyperlipidemiaacuteAugust 03, 2024 10:50amHypertensive chronic kidney disease with stage 1 through stage 4 chronic kiacuteAugust 03, 2024 10:50am ProteinuriaacuteJanuary 2024 10:50amSecondary hyperparathyroidismacute August 03, 2024 10:50amType 2 diabetes mellitus with diabetic chronic kidney diseaseacuteJuluary 2024 10:50amCKD (chronic kidney disease) stage 4, GFR 15-29 ml/minacuteMarch 2024 3:28pmHypertensionacuteMarch 2024 3:28pm Osteoarthritis of left hipacuteMarch 2024 3:28pmUTI (urinary tract infection), bacterialacuteMarch 2024 3:28pmWeaknessacuteMarch 2024 3:28pm [facility] Work Phone: 1(592) 325-291412-19-2024 Evaluation note* Diagnosis Onset Date Resolution Status Admit Date Heart failure, unspecified acuteDecember 2023 10:55amPrimary osteoarthritis of left hipacutecember 2023 10:55amType 2 diabetes mellitus with hyperglycemiaacutecember 2023 10:55amAnemia of renal diseaseacuteJuluary 2024 10:50amCKD (chronic kidney disease) stage 4, GFR 15-29 ml/minacuteJuluary 2024 10:50amGout acuteJuluary 2024 10:50amHyperlipidemiaacuteJuluary 2024 10:50am Hypertensive chronic kidney disease with stage 1 through stage 4 chronic kiacute August 03, 2024 10:50amProteinuriaacuteJuluary 2024 10:50amSecondary hyperparathyroidismacuteAugust 03, 2024 10:50amType 2 diabetes mellitus with diabetic chronic kidney diseaseacuteJuluary 2024 10:50am [facility] Work Phone: 1(807) 238-221912-16-2024 Evaluation note* Diagnosis Onset Date Resolution Status Admit Date Primary osteoarthritis of left hip acuteDecember 2023 10:19amHeart failure, unspecifiedacuteDecember 2023 10:55amPrimary osteoarthritis of left hipacuteDecember 2023 10:55am Type 2 diabetes mellitus with hyperglycemiaacuteDecember 2023 10:55am Anemia of renal diseaseacuteJuluary 2024 10:50amCKD (chronic kidney disease) stage 4, GFR 15-29 ml/minacuteJuluary 2024 10:50amGoutacute August 03, 2024 10:50amHyperlipidemiaacuteJuluary 2024 10:50am Hypertensive chronic kidney disease with stage 1 through stage 4 chronic kiacute August 03, 2024 10:50amProteinuriaacuteJuluary 2024 10:50amSecondary hyperparathyroidismacuteAugust 03, 2024 10:50amType 2 diabetes mellitus with diabetic chronic kidney diseaseacuteAugust 03, 2024 10:50am [facility] Work Phone: 1(448) 354-260011-07-2024 Evaluation note* Diagnosis Onset Date Resolution Status Admit Date Anemia of renal disease acuteNov2023 9:55amCKD (chronic kidney disease) stage 4, GFR 15-29 ml/minacuteNovember 2023 9:55amPreoperative examinationacuteNov2023 9:55amPrimary osteoarthritis of left hipacuteNovember 2023 9:55amUTI (urinary tract infection)acuteNov2023 10:32amPrimary osteoarthritis of left hipacuteDecember 2023 10:19amHeart failure, unspecifiedacute July 01, 2024 10:55amPrimary osteoarthritis of left hipacuteDecember 2023 10:55amType 2 diabetes mellitus with hyperglycemiaacuteDeceer 2023 10:55am [facility] Work Phone: 1(402) 701-312611-07-2024 Evaluation note* Diagnosis Onset Date Resolution Status Admit Date Anemia of renal disease acuteNovember 2023 9:55amCKD (chronic kidney disease) stage 4, GFR 15-29 ml/minacuteNovember 2023 9:55amPreoperative examinationacuteNovember 2023 9:55amPrimary osteoarthritis of left hipacuteNovember 2023 9:55amUTI (urinary tract infection)acuteNovember 2023 10:32amPrimary osteoarthritis of left hipacuteDecember 2023 10:19amHeart failure, unspecifiedacute July 01, 2024 10:55amPrimary osteoarthritis of left hipacuteDecember 2023 10:55amType 2 diabetes mellitus with hyperglycemiaacuteDecember 2023 10:55amAnemia of renal diseaseacuteJuluary 2024 10:50amCKD (chronic kidney disease) stage 4, GFR 15-29 ml/minacuteJanuary 2024 10:50amGoutacute August 03, 2024 10:50amHyperlipidemiaacuteJanuary 2024 10:50am Hypertensive chronic kidney disease with stage 1 through stage 4 chronic kiacute August 03, 2024 10:50amProteinuriaacuteJanuary 2024 10:50amSecondary hyperparathyroidismacuteAugust 03, 2024 10:50amType 2 diabetes mellitus with diabetic chronic kidney diseaseacuteAugust 03, 2024 10:50am [facility] Work Phone: 1(411) 200-272608-23-2024 Evaluation note* Diagnosis Onset Date Resolution Status Admit Date Anemia of renal disease acuteAugust 2023 1:13pmCKD (chronic kidney disease) stage 4, GFR 15-29 ml/minacuteAugust 2023 1:13pmPrimary osteoarthritis of left hipacuteAugust 2023 1:13pmSepsis due to urinary tract infectionacutegust 2023 1:13pmAnemia of renal diseaseacuteSeptember 2023 1:52pmCKD (chronic kidney disease) stage 4, GFR 15-29 ml/minacuteSeptember 2023 1:52pmGoutacute March 22, 2024 1:52pmHyperlipidemiaacuteSeptember 2023 1:52pm Hypertensive chronic kidney disease with stage 1 through stage 4 chronic kiacute March 22, 2024 1:52pmProteinuriaacuteSeptember 2023 1:52pmSecondary hyperparathyroidismacuteSept2023 1:52pmType 2 diabetes mellitus with diabetic chronic kidney diseaseacuteSept2023 1:52pmUTI (urinary tract infection)acuteSept2023 10:09am [facility] Work Phone: 1(466) 854-892008-23-2024 Evaluation note* Diagnosis Onset Date Resolution Status Admit Date Anemia of renal disease acuteAugust 2023 1:13pmCKD (chronic kidney disease) stage 4, GFR 15-29 ml/minacuteAugust 2023 1:13pmPrimary osteoarthritis of left hipacuteAugust 2023 1:13pmSepsis due to urinary tract infectionacuteAugust 2023 1:13pmAnemia of renal diseaseacuteSept2023 1:52pmCKD (chronic kidney disease) stage 4, GFR 15-29 ml/minacuteSept2023 1:52pmGoutacute March 22, 2024 1:52pmHyperlipidemiaacuteSept2023 1:52pm Hypertensive chronic kidney disease with stage 1 through stage 4 chronic kiacute March 22, 2024 1:52pmProteinuriaacuteSept2023 1:52pmSecondary hyperparathyroidismacuteSept2023 1:52pmType 2 diabetes mellitus with diabetic chronic kidney diseaseacuteSept2023 1:52pmUTI (urinary tract infection)acuteSept2023 10:09amUTI (urinary tract infection)acute May 25, 2024 10:32am [facility] Work Phone: 1(380) 420-972108-22-2024 NoteMicrobiology PROCEDURE: Blood Culture Charcoal [R1] SOURCE: Blood BODY SITE: Hand L COLLECTED DATE/TIME: 02/26/2024 19:07 EDT RECEIVED DATE/TIME: 02/26/2024 20:12 EDT START DATE/TIME: 02/26/2024 20:12 EDT FREE TEXT SOURCE: Allison CHANCE MD, MD, Mbanefo FINAL REPORTS Final Report [] Verified Date/Time: 03/04/2024 21:00 EDT No growth at 7 days. Performing Locations R1: This test was performed at: [facility], [address] [place] [address], [id number] , , SodisbReg[facility] WestComment on above:Performed By: #### [id number] #### [facility] [address] [place] [address] [id number] NoteMicrobiology PROCEDURE: Blood Culture Charcoal [R1] SOURCE: Blood BODY SITE: Hand R COLLECTED DATE/TIME: 02/26/2024 19:07 EDT RECEIVED DATE/TIME: 02/26/2024 20:12 EDT START DATE/TIME: 02/26/2024 20:12 EDT FREE TEXT SOURCE: Allison CHANCE MD, MD, Mbanefo FINAL REPORTS Final Report [] Verified Date/Time: 03/04/2024 21:00 EDT No growth at 7 days. Performing Locations R1: This test was performed at: [facility], [address] [place] [address], [id number] [place] [address], RwusugRegency Hospital [facility] WestComment on above:Performed By: #### [id number] #### [facility] [address] [place] [address] [id number] Hospital Discharge instructions Patient Education 02/29/2024 14:58:25 [...] Follow these instructions at home: Medicines Take jhqf-pkn-jflfinq and prescription medicines only as told by [...] follow-up visits. Where to find more information [employer]: www.aakp.org National Kidney Foundation: www.kidney.org [employer]: www.akfinc.org Medical Education [place]: ?[employer]: www.Ourcast.org ?[employer]: www.kidneyschool.org Contact a health care provider if: Your symptoms get worse. You have new symptoms such as: ?Headaches. ?Skin that is darker or process consultant than normal. ?Easy bruising. ?Itchiness. ?Hiccups. ?Lack [...] provider. Document Revised: 10/07/2022 Document Reviewed: 05/09/2020 Elsevier Patient Education 2022 [employer]. 02/29/2024 14:58:22 Sepsis, Diagnosis, Adult Sepsis, Diagnosis, [...] Follow these instructions at home: Medicines Take fsbs-udj-jxacjsb and prescription medicines only as told by [...] provider. Document Revised: 05/14/2021 Document Reviewed: 05/14/2021 [email or web address] Patient Education 2022 [employer]. Follow Up Care 02/26/2024 17:29:51 With:STEFAN BEST Address: [address] [place] [address] Business (1) When:03/05/2024 13:45:00 [facility] 08-18-2024 NoteDischarge Summary Admission and Discharge Information Admit Date/Time:02/26/2024 18:07 Admitting Physician - Allison CHANCE MD Admitting Diagnoses: Discharge Order Date Discharge with Home Health - Ordered -- 02/29/24 13:39:00 EDT, [facility] after 5:15pm if afebrile Discharge Diagnoses [...] suprapubic pain. She was subsequently admitted to [facility] with acute metabolic encephalopathy secondary to sepsis [...] physical therapy. Initially physical therapy had recommended care home facility placement but patient was hesitant and [...] Discharge Disposition Discharge To, Anticipated II - Senior Care Unit Discharged to - Home with home [...] enteric coated t (more content not included)... [facility] WestComment on above:Result Comment: Electronically Signed By: Allison CHANCE MD\.br\Date and Time Signed: 02/29/24 16:44 EDT 02-29-2024 NoteProgress Note-Nurse Report called to Vincent Delgado, debeaker. Discharge paperwork provided to patient and .[facility]08-18-2024 Evaluation + Plan note Extracted from:Title:Discharge NoteAuthor:Allison CHANCE MDDate:02/29/24 Stable Discharge To, Anticipated II - Senior Care Unit Discharged to - Home with home [...] 1 tab(s), Chewed, Daily Vitamin D [place], [address] International_Unit, Oral, Daily With When Contact Information STEFAN BEST 03/05/2024 01:45 PM EDT [address] [place] [address]- Business (1) Additional Instructions: Acute Kidney Injury, Adult Sepsis, Diagnosis, Adult Extracted from:Title:APSO NoteAuthor:KADE MARLOW, BrennenfoDate:02/29/24 78-year-old female with diab etes mellitus type [...] admission. Resolved. Ordered: Neurological Assessment [facility] Care/Day Moderate 35 Minutes [address]19 2. Sepsis (A41.9: Sepsis, unspecified organism) Sepsis secondary to urinary tract infection present on admission. Resolved. Urine cultures isolating gram-negative sabrina organisms. Blood cultures so far not isolating any organisms. Ordered: [facility] Hospital Care/Day Moderate 35 Minutes 57964 3. Urinary tract infection (N39.0: Urinary tract infection, site not specified) Gram-negative sabrina urinary tract infection present on admission. Treated with IV ceftriaxone and will transition to oral antibiotics at discharge. Ordered: [facility] Hospital Care/Day Moderate 35 Minutes 93027 4. Acute kidney injury (N17.9: Acute kidney failure, unspecified) Acute kidney injury on chronic kidney disease secondary to ATN from above sepsis and UTI. Resolved. Creatinine down to 1.5. Baseline creatinine 1.4 1.5 Avoid nephrotoxic drugs. Treated with IV fluids. Ordered: [facility] Hospital Care/Day Moderate 35 Minutes 37847 5. Elevated troponin (R79.89: Other specified abnormal findings of blood chemistry) Elevated troponin secondary to type II non-ST segment elevation myocardial infarction from above disease process. Troponin trended down. Patient has no chest pain. No further workup needed. Ordered: [facility] Hospital Care/Day Moderate 35 Minutes 47814 6. Hypoglycemia (E16.2: Hypoglycemia, unspecified) Secondary to [...] is intolerant to atorvastatin used here at [facility]. 12. Class 3 severe obesity with serious comorbidity in adult (E66.01: Morbid (severe) obesity due to excess calories) Recommend therapeutic lifestyle modification changes. 13. Coronary artery disease (I25.10: Atherosclerotic heart disease of [place] coronary artery without angina pectoris) Status post CABG. Stable. Continue on Plavix, Coreg. 14. On deep vein thrombosis (DVT) prophylaxis (Z79.899: 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) Heparin. Disposition: Discharging AM [...] made to ensure accuracy. However inadvertent computerized christian science healer errors may be present. Allison Chance. Hospitalist. Orders: furosemide, 20 mg = 1 tab(s), Tab, Oral, Daily, Routine, Start date 02/28/24 9:00:00 EDT, 02/28/24 8:55:00 EDT potassium chloride, 10 mEq = 1 cap(s), Cap-ER, Oral, Daily, Routine, Start date 02/28/24 9:00:00 EDT, 02/28/24 8:55:00 EDT Capillary Glucose POC Capillary Glucose POC Capillary Glucose POC Capillary Glucose POC Capillary Glucose POC Urine Culture Extracted from:Title:APSO NoteAuthor:KADE MARLOW, BrennenfoDate:02/28/24 78-year-old female with diab etes mellitus type [...] cultures. Ordered: Home Health Orders Neurological Assessment [facility] Hospital Care/Day Moderate 35 Minutes 64748 2. Sepsis (A41.9: Sepsis, unspecified organism) Sepsis secondary to urinary tract infection present on admission. Resolved. Treating with IV fluid, IV ceftriaxone. Blood cultures so far not isolating any organisms. Ordered: Home Health Orders [facility] Hospital Care/Day Moderate 35 Minutes 90319 3. Urinary tract infection (N39.0: Urinary tract infection, site not specified) Urinary tract infection present on admission. Treating with IV ceftriaxone pending final urine culture result. Ordered: [facility] Hospital Care/Day Moderate 35 Minutes 25950 4. Acute kidney injury (N17.9: Acute kidney failure, unspecified) Acute kidney injury on chronic kidney disease secondary to ATN from above sepsis and UTI. Resolved. Creatinine down to 1.5. Baseline creatinine 1.4 1.5 Avoid nephrotoxic drugs. Treating with IV fluids. Ordered: Basic Metabolic Panel eGFR Extra Lav Tube [facility] Hospital Care/Day Moderate 35 Minutes 74587 5. Elevated troponin (R79.89: Other specified abnormal findings of blood chemistry) Elevated troponin secondary to type II non-ST segment elevation myocardial infarction from above disease process. Troponin trended down. Patient has no chest pain. No further workup needed. Ordered: [facility] Hospital Care/Day Moderate 35 Minutes 76945 6. Hypoglycemia (E16.2: Hypoglycemia, unspecified) Secondary to [...] artery disease (I25.10: Atherosclerotic heart disease of [place] coronary artery without angina pectoris) Status post CABG. Stable. Continue on Plavix, Coreg. 14. On deep vein thrombosis (DVT) prophylaxis (Z79.899: Other half-way (current) drug therapy) Heparin. Disposition: Pending final urine culture result. I discussed the diagnosis and plan of care with the patient at the bedside. Moderate level of MDM based on addressing above issues. This documentation was transcribed using voice recognition software. Several attempts were made to ensure accuracy. However inadvertent computerized christian science healer errors may be present. Allison Chance. Hospitalist. [...] Resource Center Referral to Resource Center Extracted from:Title:APSO NoteAuthor:KADE MARLOW, BrennenfoDate:02/27/24 78-year-old female with diab etes mellitus type [...] process. Neurochecks. Follow cultures. Ordered: [facility] Hospital Care/Day Moderate 35 Minutes 18075 2. Sepsis (A41.9: Sepsis, unspecified organism) Sepsis secondary to urinary tract infection present on admission. Treating with IV fluid, IV ceftriaxone. Follow cultures. Ordered: [facility] Hospital Care/Day Moderate 35 Minutes 77857 3. Urinary tract infection (N39.0: Urinary tract infection, site not specified) Urinary tract infection present on admission. Treating with IV ceftriaxone pending final urine culture result. Ordered: [facility] Hospital Care/Day Moderate 35 Minutes 42132 4. Acute kidney injury (N17.9: Acute kidney failure, unspecified) Acute kidney injury on chronic kidney disease secondary to ATN from above sepsis and UTI. Avoid nephrotoxic drugs. Treating with IV fluids. Repeat BMP in AM. Ordered: Basic Metabolic Panel [facility] Hospital Care/Day Moderate 35 Minutes 42101 5. Elevated troponin (R79.89: Other specified abnormal findings of blood chemistry) Elevated troponin secondary to type II non-ST segment elevation myocardial infarction from above disease process. Troponin trended down. Patient has no chest pain. No further workup needed. Ordered: [facility] Hospital Care/Day Moderate 35 Minutes 80529 6. Generalized weakness (R53.1: Weakness) Secondary to [...] artery disease (I25.10: Atherosclerotic heart disease of [place] coronary artery without angina pectoris) Status post CABG. Stable. Continue on Plavix, Coreg. Will verify aspirin. 13. On deep vein thrombosis (DVT) prophylaxis (Z79.899: Other half-way (current) drug therapy) Heparin. Orders: acetaminophen, 650 [...] Vital Signs Vital Signs Weight Addendum by Allison CHANCE MD on February 27, 2024 11:54:09 EDT - I discussed the diagnosis and plan of care with the patient at the bedside. Moderate level of MDM based on addressing above issues. This documentation was transcribed using voice recognition software. Several attempts were made to ensure accuracy. However inadvertent computerized christian science healer errors may be present. Allison Chance. Hospitalist. Extracted from:Title:Admission H & PAuthor:Allison CHANCE MDDate:02/26/24 78-year-old female with diab etes mellitus type [...] in adult (E66.01: Morbid (severe) obesity due toexcess calories) Secondary to diabetic and hypertensive nephropathy. 8. Coronary artery disease (I25.10: Atherosclerotic heart disease of [place] coronary artery withoutangina pectoris) Status post CABG: Stable. On aspirin, Plavix, will resume Coreg with hold parameters. 9. On deep vein thrombosis (DVT) prophylaxis (Z79.899: Other half-way (current) drug therapy) Heparin. Disposition: The patient [...] made to ensure accuracy. However inadvertent computerized christian science healer errors may be present. Allison Chance. Hospitalist. [...] PRN Sleep, Routine, Start date 02/26/24 18:52:00 EDT,02/26/24 18:52:00 EDT Ambulate with Assistance Basic Metabolic [...] Vital Signs Vital Signs Vital Signs Weight [facility] 08-18-2024 NoteProgress Note-Physician Assessment/Plan 78-year-old female [...] admission. Resolved. Ordered: Neurological Assessment [facility] Hospital Care/Day Moderate 35 Minutes 62096 2. Sepsis (A41.9: Sepsis, unspecified organism) Sepsis?secondary to urinary tract infection?present on admission. Resolved. Urine cultures isolating gram-negative sabrina organisms. Blood cultures so far not isolating any organisms. Ordered: [facility] Hospital Care/Day Moderate 35 Minutes 29779 3. Urinary tract infection (N39.0: Urinary tract infection, site not specified) Gram-negative sabrina urinary tract infection?present on admission. Treated with IV ceftriaxone and will transition to oral antibiotics at discharge. Ordered: [facility] Hospital Care/Day Moderate 35 Minutes 04988 4. Acute kidney injury (N17.9: Acute kidney failure, unspecified) Acute kidney injury on chronic kidney disease?secondary to ATN from above sepsis and UTI. Resolved. Creatinine down to 1.5. Baseline creatinine 1.4?1.5 Avoid nephrotoxic drugs. Treated with IV fluids. Ordered: [facility] Hospital Care/Day Moderate 35 Minutes 37646 5. Elevated troponin (R79.89: Other specified abnormal findings of blood chemistry) Elevated troponin?secondary to type II non-ST segment elevation myocardial infarction from above disease process. Troponin trended down. Patient has no chest pain. No further workup needed. Ordered: [facility] Hospital Care/Day Moderate 35 Minutes 31517 6. Hypoglycemia (E16.2: Hypoglycemia, unspecified) Secondary to [...] is intolerant to atorvastatin used here at [facility]. 12. Class 3 severe obesity with serious comorbidity in adult (E66.01: Morbid (severe) obesity due to excess calories) Recommend therapeutic lifestyle modification changes. 13. Coronary artery disease (I25.10: Atherosclerotic heart disease of [place] coronary artery without angina pectoris) Status post CABG. Stable. Continue on Plavix, Coreg. 14. On deep vein thrombosis (DVT) prophylaxis (Z79.899: 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) Heparin. Disposition: Discharging AM [...] made to ensure accuracy. However inadvertent computerized christian science healer errors may be present. Allison Chance. Hospitalist. [...] (4) Oral Intake mL (more content not included)...[facility]Result Comment: Electronically Signed By: KADE MARLOW, Allison\.br\Date and Time Signed: 02/29/24 08:54 [id number] NoteProgress Note-Physician Assessment/Plan 78-year-old female with diabetes [...] cultures. Ordered: Home Health Orders Neurological Assessment [facility] Hospital Care/Day Moderate 35 Minutes 68017 2. Sepsis (A41.9: Sepsis, unspecified organism) Sepsis?secondary to urinary tract infection?present on admission. Resolved. Treating with IV fluid, IV ceftriaxone. Blood cultures so far not isolating any organisms. Ordered: Home Health Orders [facility] Hospital Care/Day Moderate 35 Minutes 45886 3. Urinary tract infection (N39.0: Urinary tract infection, site not specified) Urinary tract infection?present on admission. Treating with IV ceftriaxone pending final urine culture result. Ordered: [facility] Hospital Care/Day Moderate 35 Minutes [id number] 4. Acute kidney injury (N17.9: Acute kidney failure, unspecified) Acute kidney injury on chronic kidney disease?secondary to ATN from above sepsis and UTI. Resolved. Creatinine down to 1.5. Baseline creatinine 1.4?1.5 Avoid nephrotoxic drugs. Treating with IV fluids. Ordered: Basic Metabolic Panel eGFR Extra Lav Tube [facility] Hospital Care/Day Moderate 35 Minutes 79578 5. Elevated troponin (R79.89: Other specified abnormal findings of blood chemistry) Elevated troponin?secondary to type II non-ST segment elevation myocardial infarction from above disease process. Troponin trended down. Patient has no chest pain. No further workup needed. Ordered: [facility] Hospital Care/Day Moderate 35 Minutes 40873 6. Hypoglycemia (E16.2: Hypoglycemia, unspecified) Secondary to [...] artery disease (I25.10: Atherosclerotic heart disease of [place] coronary artery without angina pectoris) Status post CABG. Stable. Continue on Plavix, Coreg. 14. On deep vein thrombosis (DVT) prophylaxis (Z79.899: 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) Heparin. Disposition: Pending final urine culture result. I discussed the diagnosis and plan of care with the patient at the bedside. Moderate level of MDM based on addressing above issues. This documentation was transcribed using voice recognition software. Several attempts were made to ensure accuracy. However inadvertent computerized christian science healer errors may be present. Allison Chance. Hospitalist. [...] feeling much better. Feeli (more content not included)...[facility] Comment on above:Result Comment: Electronically Signed By: KADE MARLOW, Allison\.br\Date and Time Signed: 02/28/24 08:54 [id number] NoteProgress Note-Physician Assessment/Plan 78-year-old female with diabetes [...] process. Neurochecks. Follow cultures. Ordered: [facility] Hospital Care/Day Moderate 35 Minutes 56322 2. Sepsis (A41.9: Sepsis, unspecified organism) Sepsis?secondary to urinary tract infection?present on admission. Treating with IV fluid, IV ceftriaxone. Follow cultures. Ordered: [facility] Hospital Care/Day Moderate 35 Minutes 86850 3. Urinary tract infection (N39.0: Urinary tract infection, site not specified) Urinary tract infection?present on admission. Treating with IV ceftriaxone pending final urine culture result. Ordered: [facility] Hospital Care/Day Moderate 35 Minutes 22633 4. Acute kidney injury (N17.9: Acute kidney failure, unspecified) Acute kidney injury on chronic kidney disease?secondary to ATN from above sepsis and UTI. Avoid nephrotoxic drugs. Treating with IV fluids. Repeat BMP in AM. Ordered: Basic Metabolic Panel [facility] Hospital Care/Day Moderate 35 Minutes 69130 5. Elevated troponin (R79.89: Other specified abnormal findings of blood chemistry) Elevated troponin?secondary to type II non-ST segment elevation myocardial infarction from above disease process. Troponin trended down. Patient has no chest pain. No further workup needed. Ordered: [facility] Hospital Care/Day Moderate 35 Minutes 40206 6. Generalized weakness (R53.1: Weakness) Secondary to [...] artery disease (I25.10: Atherosclerotic heart disease of [place] coronary artery without angina pectoris) Status post CABG. Stable. Continue on Plavix, Coreg. Will verify aspirin. 13. On deep vein thrombosis (DVT) prophylaxis (Z79.899: Other half-way (current) drug therapy) Heparin. Orders: acetaminophen, 650 [...] 18:52:00 EDT, 02/26/24 18: (more content not included)...[facility]Result Comment: Electronically Signed By: KADE MARLOW, Allison\.br\Date and Time Signed: 02/27/24 11:54 [id number] NoteProgress Note-Physician Assessment/Plan 78-year-old female with diabetes [...] process. Neurochecks. Follow cultures. Ordered: [facility] Hospital Care/Day Moderate 35 Minutes 35818 2. Sepsis (A41.9: Sepsis, unspecified organism) Sepsis?secondary to urinary tract infection?present on admission. Treating with IV fluid, IV ceftriaxone. Follow cultures. Ordered: [facility] Hospital Care/Day Moderate 35 Minutes 94499 3. Urinary tract infection (N39.0: Urinary tract infection, site not specified) Urinary tract infection?present on admission. Treating with IV ceftriaxone pending final urine culture result. Ordered: [facility] Hospital Care/Day Moderate 35 Minutes 46012 4. Acute kidney injury (N17.9: Acute kidney failure, unspecified) Acute kidney injury on chronic kidney disease?secondary to ATN from above sepsis and UTI. Avoid nephrotoxic drugs. Treating with IV fluids. Repeat BMP in AM. Ordered: Basic Metabolic Panel [facility] Hospital Care/Day Moderate 35 Minutes 23428 5. Elevated troponin (R79.89: Other specified abnormal findings of blood chemistry) Elevated troponin?secondary to type II non-ST segment elevation myocardial infarction from above disease process. Troponin trended down. Patient has no chest pain. No further workup needed. Ordered: [facility] Hospital Care/Day Moderate 35 Minutes 05018 6. Generalized weakness (R53.1: Weakness) Secondary to [...] artery disease (I25.10: Atherosclerotic heart disease of [place] coronary artery without angina pectoris) Status post CABG. Stable. Continue on Plavix, Coreg. Will verify aspirin. 13. On deep vein thrombosis (DVT) prophylaxis (Z79.899: 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) Heparin. Orders: acetaminophen, 650 [...] 18:52:00 EDT, 02/26/24 18: (more content not included)...[facility] above:Result Comment: Electronically Signed By: KADE MARLOW, Allison\.br\Date and Time Signed: 02/27/24 09:45 [id number] NoteHistory and Physical Chief Complaint To ED [...] reviewed in the emergency room by the front desk agent who said the patient was not having [...] Lymph Auto: 8.4 % Low (02/26/24 17:30:00) Edgar Auto: 7.9 % (02/26/24 17:30:00) Eos Auto: 0.5 % (02/26/24 17:30:00) Basophil Auto: 1 % (02/26/24 17:30:00) Neutro Absolute: 10.5 E9/L High (02/26/24 17:30:00) Lymph Absolute: 1.1 E9/L (02/26/24 17:30:00) Edgar Absolute: 1 E9/L (02/26/24 17:30:00) Eos Absolute: 0.1 E9/L (02/26/24 17:30:00) Basophil Absolute: 0.1 E9/L (02/26/24 17:30:00) PT: 12 second(s) (02/26/24 17:30:00) INR: 1.07 (02/26/24:30:00) PTT: 30.9 second(s) (02/26/24:30:00) Glucose Lvl: 97 mg/dL (02/26/24 17:30:00) BUN: 39 mg/dL High (02/26/24 17:30:00) Creatinine: 1.8 mg/dL High (02/26/24 17:30:00) eGFR: 28 mL/min/1.73 m2 Low (02/26/24 17:30:00) BUN/Creat Ratio: 22 High (02/26/24 17:30:00) Sodium Lvl: 133 mmol/L Low (02/26/24 17:30:00) Potassium Lvl: 4.4 mmol/L (02/26/24 17:30:00) Chloride: 100 mmol/L Low (02/26/24 17:30:00) CO2: 26 mmol/L (02/26/24 17:30:00) AGAP: 11 mEq/L (02/26/24 17:30:00) Calcium Lvl: 8.7 mg/dL Low (02/26/24 17:30:00) Troponin HS: 74.9 pg/mL Critical (02/26/24 17:30:00) Diagnostic Results EKG analyzed by me: Sinus rhythm. Nonspecific ST-T segment changes involving the lead III, aVL and ST segment depression in V2?no acute changes compared to old EKG. Chest x-ray reviewed by me: N (more content not included)...[facility]:Result Comment: Electronically Signed By: KADE MARLOW, Allison\.br\Date and Time Signed: 02/26/24 19:01 [id number] Hospital Discharge instructions Patient Education 02/10/2024 16:20:39 [...] transplant. Follow these instructions at home: Take esxm-nti-[id number] and prescription medicines only as told by [...] provider. Document Revised: 10/17/2020 Document Reviewed: 10/17/2020 [employer] Patient Education 2022 [email or web address] Follow Up Care 01/26/2024 09:56:54 With:REESE MARLOW, Yaniv Vela, URL Address: [address] [place], [place] [id number]- When: Unknown [facility] Mayuri 07-30-2024 NotePatient Education Urology Hydronephrosis Hydronephrosis is [...] Follow these instructions at home: ? Take jwzm-zyw-nbqavht and prescription medicines only as told by [...] provider. Document Revised: 10/17/2020 Document Reviewed: 10/17/2020 [email or web address] Patient Education ? 2022 [employer].[facility] 01-25-2024 Progress note Author [facility] January 25, 2024 11:30amNote Date/TimeJuly 2023 11:31[place] [address] Nephrology Progress Note Signed Patient: Lexi Tatum MR#: [id number] : 1945 Acct:[id number] Age/Sex: 78 / F Adm Date: 4 Loc: Room: [address] [place] [address] Type: ADM IN Attending Dr: Norberto Pires [...] scan of the abdomen in the ER withoutcontrast that confirmed bilateral hydronephrosis and hydroureter up to the renal pelvis. Urology was consulted and the patient is scheduled for cystoscopy this afternoon. Creatinine on admit was 2.02mg/dL slightly higher than baseline creatinine is 1.5 [...] on 01/23. She has a narrowing of theureters proximally however there is no intraureteral pathology. [...] BID.WITH.MEALS REBA Stop: 01/21/25 19:04 Last Admin: 01/25/24 08:29 Dose: 25 mg Dextrose (Dextrose 50% In Water 25 Gm/50 Ml Syringe) 0 gm IV-PUSH PRN PRN PRN Reason: Hypoglycemia Stop: 01/21/25 18:58 Docusate Sodium (Docusate 100 Mg Capsule) 100 mg PO BID REBA Stop: 01/21/25 20:59 Last Admin: 01/25/24 08:30 Dose: 100 mg Furosemide (Furosemide 40 Mg Tablet) 40 mg PO DAILY.8A REBA Stop: 01/25/25 07:59 Gabapentin (Gabapentin 300 Mg Capsule) 300 mg PO BID REBA Stop: 01/21/25 20:59 Last Admin: 01/25/24 08:29 Dose: 300 mg Glucose (Dextrose 40% Gel 15 Gm Tube) 0 gm PO PRN PRN PRN Reason: Hypoglycemia Stop: 01/21/25 18:58 Heparin Sodium (Porcine) (Heparin 5,000 Unit/Ml Vial) 5,000 unit SUBCUT Q12HR [facility] Stop: 01/22/25 20:59 Last Admin: 01/24/24 09:07 Dose: 5,000 unit Hydralazine HCl (Hydralazine 20 Mg/Ml Vial) 10 mg IV-PUSH Q4H PRN PRN Reason: Hypertension Stop: 01/21/25 18:58 Insulin Aspart (Insulin Aspart 300 Units/3 Ml Insuln.Pen) 0 units SUBCUT TID.WM.HS [facility]; Protocol Stop: 01/21/25 21:59 Last Admin: 01/25/24 08:30 Dose: Not Given Insulin Glargine (Insulin Glargine 300 Units/3 Ml Insuln.Pen) 50 units SUBCUT QPM [facility] Stop: 01/23/25 20:59 Last Admin: 01/24/24 21:12 Dose: 50 units Magnesium Hydroxide (Magnesium Hydroxide Susp 30 Ml Udc) 30 ml PO BID PRN PRN Reason: Constipation Stop: 01/21/25 18:58 Metoprolol Tartrate (Metoprolol Tartrate 5 Mg/5 Ml Vial) 5 mg IV-PUSH Q4H PRN PRN Reason: Blood Pressure Stop: 01/21/25 18:58 Oxybutynin Chloride (Oxybutynin Chloride 5 Mg Tab.Er.24) 15 mg PO DAILY [facility] Stop: 01/22/25 08:59 Last Admin: 01/25/24 08:29 Dose: 15 mg Potassium Chloride (Potassium Chloride Er 10 Meq Capsule.Er) 10 meq PO DAILY [facility] Stop: 01/22/25 08:59 Last Admin: 01/25/24 08:29 [...] continued decreased to 1.85 mg/dL today with hydration.Blood pressure is normal. (3) Hypertensive chronic kidney [...] She is euvolemic at this time and willhold diuretic until after procedure. Plan * Patient had cystoscopy with bilateral ureteral stents as stated above. She has hematuria after procedure that is expected. She takes Plavix at home that is currently on hold. She stated that hematuria is clearing up. Hemoglobin started down to 9.7 g/dL. With the patient void by herself and see ifurine is clearing up. She can go back on Plavix once hematuria resolves. * Restart home oral furosemide 40 mg daily. No need for IV diuretics. * Will check voided urine to ensure that she does not have more hematuria. Documented By: Gita Azevedo MD 01/25/24 1127 Signed By: <Electronically signed by MD Gita Azevedo> 01/25/24 1130 [facility] Work Phone: [phone]) 851-751907-13-2024 Progress note Author Norberto Pires [facility] January 24, 2024 2:31pmNote Date/TimeJuly 2023 2:25[place] [address] Hospitalist Progress Note Signed Patient: Lexi Tatum MR#: [id number] : 1945 Acct:[id number] Age/Sex: 78 / F Adm Date: 4 Loc: Room: [address] [place] [address] Type: ADM IN Attending Dr: Norberto Pires DO Copies to: ~ Date of Service: 01/24/2024 Subjective Subjective Narrative: Overnight the patient did develop hematuria. This never had any clots. She hasnot had any difficulty voiding urine. Her beet colored urine was collected in the [employer] collection system. Just before my visit with [...] her bilateral stent placement due to the useof aspirin and Plavix at home. I will [...] signed by Norberto Pires DO> 01/24/24 1431 [facility] Work Phone: 1(843) 893-740007-13-2024 Progress note Author Gita Azevedo [facility] January 24, 2024 12:21pmNote Date/TimeJuly 2023 12:22pm[place] [address] Nephrology Progress Note Signed Patient: Lexi Tatum MR#: [id number] : 1945 Acct:[id number] Age/Sex: 78 / F Adm Date: 4 Loc: 3T Room: [address] [place] [address] Type: ADM IN Attending Dr: Norberto Pires [...] scan of the abdomen in the ER withoutcontrast that confirmed bilateral hydronephrosis and hydroureter up to the renal pelvis. Urology was consulted and the patient is scheduled for cystoscopy this afternoon. Creatinine on admit was 2.02mg/dL slightly higher than baseline creatinine is 1.5 [...] BID.WITH.MEALS REBA Stop: 01/21/25 19:04 Last Admin: 01/24/24 09:08 Dose: 25 mg Dextrose (Dextrose 50% In Water 25 Gm/50 Ml Syringe) 0 gm IV-PUSH PRN PRN PRN Reason: Hypoglycemia Stop: 01/21/25 18:58 Docusate Sodium (Docusate 100 Mg Capsule) 100 mg PO BID REBA Stop: 01/21/25 20:59 Last Admin: 01/24/24 09:08 Dose: 100 mg Gabapentin (Gabapentin 300 Mg Capsule) 300 mg PO BID REBA Stop: 01/21/25 20:59 Last Admin: 01/24/24 09:08 Dose: 300 mg Glucose (Dextrose 40% Gel 15 Gm Tube) 0 gm PO PRN PRN PRN Reason: Hypoglycemia Stop: 01/21/25 18:58 Heparin Sodium (Porcine) (Heparin 5,000 Unit/Ml Vial) 5,000 unit SUBCUT Q12HR [facility] Stop: 01/22/25 20:59 Last Admin: 01/24/24 09:07 Dose: 5,000 unit Hydralazine HCl (Hydralazine 20 Mg/Ml Vial) 10 mg IV-PUSH Q4H PRN PRN Reason: Hypertension Stop: 01/21/25 18:58 Sodium Chloride (0.9% Sodium Chloride 1,000 Ml) 1,000 mls @ 75 mls/hr IV .[id number] [facility] Stop: 01/21/25 18:59 Last Admin: 01/23/24 20:12 Dose: 100 mls/hr Insulin Aspart (Insulin Aspart 300 Units/3 Ml Insuln.Pen) 0 units SUBCUT TID.WM.HS [facility]; Protocol Stop: 01/21/25 21:59 Last Admin: 01/24/24 09:09 Dose: 3 units Insulin Glargine (Insulin Glargine 300 Units/3 Ml Insuln.Pen) 25 units SUBCUT QPM [facility] Stop: 01/21/25 20:59 Last Admin: 01/23/24 22:52 Dose: 25 units Magnesium Hydroxide (Magnesium Hydroxide Susp 30 Ml Udc) 30 ml PO BID PRN PRN Reason: Constipation Stop: 01/21/25 18:58 Metoprolol Tartrate (Metoprolol Tartrate 5 Mg/5 Ml Vial) 5 mg IV-PUSH Q4H PRN PRN Reason: Blood Pressure Stop: 01/21/25 18:58 Oxybutynin Chloride (Oxybutynin Chloride 5 Mg Tab.Er.24) 15 mg PO DAILY [facility] Stop: 01/22/25 08:59 Last Admin: 01/24/24 09:08 Dose: 15 mg Potassium Chloride (Potassium Chloride Er 10 Meq Capsule.Er) 10 meq PO DAILY [facility] Stop: 01/22/25 08:59 Last Admin: 01/24/24 09:08 [...] Rhett Ponce M.D.01/23/2024 7:31 PM Dictation Location: [place] [address] Any impression(s) listed above is documentation that [...] continued decreased to 1.85 mg/dL today with hydration.Blood pressure is normal. (3) Hypertensive chronic kidney [...] She is euvolemic at this time and willhold diuretic until after procedure. Plan * Patient [...] renal point if okay with urology. She stillhas hematuria however it is clearing up and hemoglobin is stable with stable blood pressure. She need to follow-up with urology as outpatient for further evaluation of ureteral compression. Documented By: Gita Azevedo MD 01/24/24 1215 Signed By: <Electronically signed by MD Gita Azevedo> 01/24/24 1221 [facility] Work Phone: 1(227) 322-663307-12-2024 Progress note Author Norberto Pires [facility] January 23, 2024 6:51pmNote Date/TimeJuly 2023 6:40pm[place] [address] Hospitalist Progress Note Signed Patient: Lexi Tatum MR#: [id number] : 1945 Acct:[id number] Age/Sex: 78 / F Adm Date: 4 Loc: Room: 3W2160-2 Type: ADM IN Attending Dr: Norberto Pires [...] amount of urine being collected in the [employer] collection system with no evidence of blood. [...] 1,000 Ml IV 01/21/25 18:59 100 mls/hr .[id number] REBA Administration Lactated Ringer's 1,000 mls @ 20 mls/hr 01/23/24 14:04 01/23/24 18:21 Lactated Ringers IV 01/24/24 14:03 Not Given .Q24H ONE Insulin Aspart 0 units 01/22/24 22:00 01/23/24 18:21 Insulin Aspart 300 Units/3 Ml Insuln.Pen SUBCUT 01/21/25 21:59 Not Given TID.WM.HS [facility] Protocol Insulin Glargine 25 units 01/22/24 21:00 [...] signed by Norberto Pires DO> 01/23/24 1851 [facility] Work Phone: 1(295) 482-496407-12-2024 Consult note Author Ynaiv Natarajan [facility] January 23, 2024 3:44pmNote Date/TimeJuly 2023 3:44pm[place]gett[place] [address] Urology Consult Note Signed Patient: Lexi Tatum MR#: [id number] : 1945 Acct:[id number] Age/Sex: 78 / F Adm Date: 4 Loc: Room: [address] [place] [address] Type: ADM IN Attending Dr: Norberto Pires DO Copies to: MD Norberto Olmstead DO Marcia E Braun, MD~ History of Present Illness Consult Details Consult Date: 01/23/2024 Requesting Provider: Norberto Pires DO HPI: Thank for consultation on this 78-year-old female who is undergoing evaluation for outpatient orthopedic surgery and was found to have an elevation in her baseline BUN and creatinine. She already hashypertension and diabetes mellituscontributing to some moderate renal failure but now was found to have hydronephrosis initially on ultrasound and again confirmed on CT scan. Urologicconsultation wasrequested secondary to the bilateral hydronephrosis which is significant and down to the level of the pelvis. She has never had urolithiasis. She denies flank pain, fever, or chills. Denies recurrenturinary tract infections. She has had no blood [...] and P documented by Dr. Pires yesterday. [facility] Medical History (Updated 01/23/24 @ 10:50 [...] subcutaneous pen (Novolog FlexPen U-100 Insulin aspart) SeeProtocol subcut DIRECTED 07/16/17 [History Confirmed 01/22/24] gabapentin [...] % (Auto) 65.0, Lymph % (Auto) 23.9, Edgar % (Auto) 6.8, Eos % (Auto) 3.7, Baso % (Auto) 0.6, Nucleat RBC Rel Count 0.1, Neut # (Auto) 5.3, Lymph # (Auto) 2.0, Edgar # (Auto) 0.6, Eos # (Auto) 0.3, Baso # (Auto) 0.0, PT 11.0, INR 0.9, APTT 30.7, PHA Creatinine Clear 23.08, Sodium 142, Potassium 3.7,Chloride 108 H, Carbon Crbgjbo22.6, Anion Gap 10.1, BUN 27 H, Creatinine [...] Neut % (Auto) 68.5, Lymph % (Auto) 21.7,Edgar % (Auto) 5.2, Eos % (Auto) 3.3, Baso % (Auto) 1.3, Nucleat RBC Rel Count 0.2, Neut # (Auto) 6.1, Lymph # (Auto) 1.9, Edgar # (Auto) 0.5, Eos # (Auto) 0.3, Baso # (Auto) 0.1, Monocyte Dist Width 19.69, PHA Creatinine Clear 20.74, Sodium 139, Potassium 4.2, Chloride 104, Carbon Dioxide 26.7, Anion Gap 12.5, BUN 29 H, Creatinine 2.02 H, Est GFR (CKD-EPI) 24.802, Glucose 123 H, Calcium 9.2, TotalBilirubin 0.3, AST 9L, ALT 4 L, Alkaline Phosphatase 51, Total Protein 7.3, Albumin 3.7, Globulin 3.6, Albumin/Globulin Ratio 1.0, Urine Color Colorless, Urine Appearance Cloudy A, Urine pH 7.0, Ur Specific Neptune 1.010, Urine Protein 50 H, Urine Glucose [...] no evidence of urolithiasis. She does have ahistoryof of abdominal aortic aneurysm and iliac aneurysm repair in the distantpast. Whether or not she has external compression of the ureters at the pelvic inlet is in question. Regardless I feel that relieving obstruction of the bilateral kidneys will at least improve her renal function. If it is found that she has bilateral extrinsic ureteral compression in these areas thepossibility of ureterolysis may have to be considered [...] <Electronically signed by MD Yaniv Natarajan> 01/23/24 1544 [facility] Work Phone: 1([phone]) 829-153507-12-2024 Consult note Author Gita Azevedo [facility] January 23, 2024 12:19pmNote Date/TimeJuly 2023 11:19[place] [address] Nephrology Consult Note Signed Patient: Lexi Tatum MR#: [id number] : 1945 Acct:[id number] Age/Sex: 78 / F Adm Date: 4 Loc: Room: [address] [place] [address] Type: ADM IN Attending Dr: Norberto Pires DO Copies to: MD Norberto Franco DO Marcia E Braun, MD~ Providers Consult Date: 01/23/24 Requesting Provider: Norberto Pires DO Primary Care Provider: Stefan Best MD HPI Reason for Consult: CKD management History of [...] scan of the abdomen in the ER withoutcontrast that confirmed bilateral hydronephrosis and hydroureter up to the renal pelvis. Urology was consulted and the patient is scheduled for cystoscopy this afternoon. Creatinine on admit was 2.02mg/dL slightly higher than baseline creatinine is 1.5 [...] negative unless noted below or in HPI [facility] Medical History (Updated 01/23/24 @ 10:50 [...] subcutaneous pen (Novolog FlexPen U-100 Insulin aspart) SeeProtocol subcut DIRECTED 07/16/17 [History Confirmed 01/22/24] gabapentin [...] 300 Mg Tablet) 300 mg PO DAILY [facility] Stop: 01/22/25 08:59 Last Admin: 01/23/24 07:59 Dose: 300 mg Atorvastatin Calcium (Atorvastatin 10 Mg Tablet) 10 mg PO QHS REBA Stop: 01/21/25 21:59 Last Admin: 01/22/24 22:52 Dose: 10 mg Carvedilol (Carvedilol 25 Mg Tablet) 25 mg PO BID.WITH.MEALS [facility] Stop: 01/21/25 19:04 Last Admin: 07/12/24 07:59 Dose: 25 mg Dextrose (Dextrose 50% [...] Ml) 1,000 mls @ 75 mls/hr IV .[id number] REBA Stop: 01/21/25 18:59 Last Admin: 01/23/24 10:00 Dose: 100 mls/hr Insulin Aspart (Insulin Aspart 300 Units/3 Ml Insuln.Pen) 0 units SUBCUT TID.WM.HS [facility]; Protocol Stop: 01/21/25 21:59 Last Admin: 01/22/24 22:55 Dose: Not Given Insulin Glargine (Insulin Glargine 300 Units/3 Ml Insuln.Pen) 25 units SUBCUT QPM REBA Stop: 01/21/25 20:59 Last Admin: 01/22/24 23:25 Dose: Not Given Magnesium Hydroxide (Magnesium Hydroxide Susp 30 Ml Udc) 30 ml PO BID PRN PRN Reason: Constipation Stop: 01/21/25 18:58 Metoprolol Tartrate (Metoprolol Tartrate 5 Mg/5 Ml Vial) 5 mg IV-PUSH Q4H PRN PRN Reason: Blood Pressure Stop: 01/21/25 18:58 Oxybutynin Chloride (Oxybutynin Chloride 5 Mg Tab.Er.24) 15 mg PO DAILY [facility] Stop: 01/22/25 08:59 Last Admin: 01/23/24 07:59 Dose: 15 mg Potassium Chloride (Potassium Chloride Er 10 Meq Capsule.Er) 10 meq PO DAILY [facility] Stop: 01/22/25 08:59 Last Admin: 01/23/24 07:59 [...] Cloudy A Urine pH 7.0 Ur Specific Neptune 1.010 Urine Protein 50 H Urine Glucose (UA) Normal Urine Ketones Negative Urine Occult Blood Negative Urine Nitrite Negative Ur Leukocyte Esterase 1+ H Urine RBC 1-2 Urine WBC 5-9 H Urine Bacteria Rare Radiology Impressions Impressions - last 24 hours: Impressions Abdomen/Pelvis CT 01/22/24 16:11 IMPRESSION: Bilateral hydronephrosis and hydroureter to the level of the pelvic inlet without obstructing stoneor gross mass. Underlying stricture possibly related to the patient's aortic bypass cannot BE excluded. Urology consultation is suggested for further intervention. Gallbladder sludge. Partially calcified fibroid uterus. Impression dictated by: Earnest Iraheta Jr., D.OPaul01/22/2024 4:28 PM Dictation Location: [place] [address] Any impression(s) listed above is documentation that [...] continued decreased to 1.85 mg/dL today with hydration.Blood pressure is normal. (3) Hypertensive chronic kidney [...] She is euvolemic at this time and willhold diuretic until after procedure. Plan * Kidney [...] signed by MD Gita Azevedo> 01/23/24 1219 [facility] Work Phone: 1(237) 705-305407-11-2024 History and physical note Author Norberto Pires [facility] January 22, 2024 9:37pmNote Date/TimeJuly 2023 9:37pm[place] [address] Hospitalist H&P Signed Patient: Lexi Tatum MR#: [id number] : 1945 Acct:[id number] Age/Sex: 78 / F Adm Date: 4 Loc: Room: 6G1370-2 Type: ADM IN Attending Dr: Norberto Pires [...] eating a full dinner. She says that shehas had absolutely no symptoms at all. 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 Review of Systems Review of Systems Review of systems: 10 systems are reviewed and are negative except as mentioned elsewhere in the documentation. [facility] Medical History (Updated 01/22/24 @ 21:34 [...] subcutaneous pen (Novolog FlexPen U-100 Insulin aspart) SeeProtocol subcut DIRECTED 07/16/17 [History Confirmed 01/22/24] gabapentin [...] % (Auto) 21.7 % (.) 01/22/24 15:18 Edgar % (Auto) 5.2 % (.) 01/22/24 15:18 Eos % (Auto) 3.3 % (.) 01/22/24 15:18 Baso % (Auto) 1.3 % (.) 01/22/24 15:18 Nucleat RBC Rel Count 0.2 /100 WBC (0-0.5) 01/22/24 15:18 Neut # (Auto) 6.1 x10E3/uL (1.8-7.7) 01/22/24 15:18 Lymph # (Auto) 1.9 x10E3/uL (1.00-4.8) 01/22/24 15:18 Edgar # (Auto) 0.5 x10E3/uL (0.0-0.8) 01/22/24 15:18 [...] pH 7.0 (5.0-9.0) 01/22/24 15:18 Ur Specific Neptune 1.010 (1.001-1.030) 01/22/24 15:18 Urine Protein 50 [...] renal function at her age and with hermultiple medical core morbidities is a serious medical [...] setting as: INPATIENT because of an expectation ofan over 2 midnight stay. Estimated length of stay (# of days): 3 Documented By: Norberto Pires DO 2129 Signed By: <Electronically signed by Norberto Pires DO> 01/22/242136 [facility] Work Phone: 1(333) 948-212103-06-2024 History of Present illness Narrative* Shahrzad Morales [...] assess coronary disease and because of this Paula low mistry her coronary disease should be reevaluated in [...] normal. Allergies Williams inhibitors, Atorvastatin, Spironolactone, and Gxscdqj-oxn-rcc reductase inhibitors Current Medications Current Outpatient Medications: [...] Scribe Attestation By signing my name below, ILisette LPN, Scribe attest that this documentation has been prepared under the direction and in the presence of Hugh Morales MD. Provider Attestation - Scribe documentation All medical record entries made by the Scribe were at my direction and personally dictated by me. Wilbert reviewed the chart and agree that the record accurately reflects my personal performance of the history, physical exam, discussion and plan. documented in this encounterAC[facility] Work Phone: 1(850) 779-928403-06-2024 Instructions* Patient Instructions* Kaleigh Funez LPN - [...] time of your visit. documented in this encounterACMC [facility] Work Phone: 1(928) 872-874102-27-2024 Note [id number]#1.00[facility] 09-09-2023 [id number]#1.00[facility]02-19-2024 [id number]#1.00[place]-20[place] Evaluation note* Encounter Date Diagnosis Assessment Notes Treatment Notes Treatment Clinical Notes Jul, Primary osteoarthritis of left h ip (ICD-10 - M16.12) Jul,OtherWe have provided her a few names of [facility] physicians that are currently taking [...] certainly get that set up. While she di d not have great relief on the last injection she had long-term relief on the one prior to that. If she has an injection I can see her 3 months after that. [facility] Other 09-14-2023 Evaluation note* Encounter Date Diagnosis Assessment Notes Treatment Notes Treatment Clinical Notes Mar, Primary osteoarthritis of left h ip (ICD-10 - M16.12) Mar,Other1. We had a long discussion with the patient today concerning their [...] is considering changing from her current PCP [facility] Other 05-02-2023 Evaluation note* Encounter Date Diagnosis Assessment Notes Treatment Notes Treatment Clinical Notes November, Pain in left hip (ICD-10 - M25.5 52) November,rimary osteoarthritis of left hip (ICD-10 - M16.12)We discussed treatment options for the patient's persistent left hip and groin pain. Recent imagingshows severe degenerative changes. We discussed given her increasing pain symptoms as well recent imaging, I would like her to be formally evaluated by Orthopedics for her hip. In the future if the pain persists, we can consider a hip joint injection. We discussed with patient to continue with activity modification. Patient encouraged to continue with use of cane as needed for ambulation. November,Other low back pain (ICD-10 - M54.59) November,hronic pain (ICD-10 - G89.29) November,OtherAbove note written by Ramandeep Aggarwal LPN, Community Nurse. Edited and approved by Dr. Ross Colmenares MD.Medical decision making shows a new problem to me with further workup planned or suggested with thepotential for extensive treatment options that were considered with the most applicable given this patient's situation as noted above. Treatment options considered include a combination of physical therapy approaches, pharmacologic management, and interventional procedures. Those most applicable tothe patient were discussed at this time. Risk [...] prolonged functional impairment requiring constant patient reassessment andhigh- level medical decision making. The amount and complexity of data reviewed is high given that patient labs, radiology reports, and other test were obtained, reviewed and summarized as applicable from the physician portal and/or outside medical records. Pertinent positive and negative findings were considered in medical decision-making. [facility] Other 05-01-2017 History general Narrative - Reported* Type Description Date Medical History GA Medical HistoryHyperlipiedmiaMedical HistoryPVDMedical HistoryDMMedical History HTNSurgical HistoryOpen Heart11/2016Surgical HistoryCardiac Stent09/2017Surgical HistoryCardiac Stent05/2017Surgical HistoryC- [id number] HistoryRt iliac angioplasty & stent; Aortobiiliac bifurcation graft07/20/18Hospitalization HistorySee above [facility] Other Evaluation + Plan note Future Appointments Appointment Date:03/25/2023 01:00:00 PM Scheduled Provider: Location:[facility] Kiera Appointment Type: Medicare Wellness [facility]No assessment information available [facility] Work Phone: evaluation noteNo InformationNort SocialDefender Other evaluation note* Diagnosis CAD, multiple vessel- Primary S/P CABG x 3 Postsurgical aortocoronary bypass status History of angioplasty Primary hypertension Unspecified essential hypertension Ischemic cardiomyopathy Other specified forms of chronic ischemic heart disease Mixed hyperlipidemia BMI 32.0-32.9,adult Former smoker Personal history of tobacco use, presenting hazards to health Occlusion and stenosis of right carotid artery Shortness of breath documented in this encounter [facility] Work Phone: Evaluation note* Diagnosis CAD, multiple vessel S/P CABG x 3 Postsurgical aortocoronary bypass status Ischemic cardiomyopathy Other specified forms of chronic ischemic heart disease Occlusion and stenosis of right carotid artery Shortness of breath documented in this encounter [facility] Work Phone: Evaluation note* Diagnosis Onset Date Resolution Status Osteoarthritis of left hip acuteType 2 diabetes mellitus with hyperglycemiaacuteUTI (urinary tract infection)acuteLumbar painacuteOsteoarthritis of left hipacuteUncontrolled diabetes mellitusacute [facility] Work Phone: evaluation note* Diagnosis Onset Date Resolution Status Osteoarthritis of left hip acuteType 2 diabetes mellitus with hyperglycemiaacuteUTI (urinary tract infection)acuteLumbar painacuteOsteoarthritis of left hipacuteUncontrolled diabetes mellitusacuteOAB (overactive bladder)acutePreoperative examinationacute Primary osteoarthritis of left hipacuteType 2 diabetes mellitus with hyperglycemiaacute [facility] Work Phone: evaluation note* Diagnosis Onset Date Resolution Status Lumbar pain acuteOsteoarthritis of left hipacuteUncontrolled diabetes mellitusacuteOAB (overactive bladder)acutePreoperative examinationacutePrimary osteoarthritis of left hipacuteType 2 diabetes mellitus with hyperglycemiaacute [facility] Work Phone: evaluation note* Diagnosis Onset Date Resolution Status OAB (overactive bladder) acutePreoperative examinationacutePrimary osteoarthritis of left hipacuteType 2 diabetes mellitus with hyperglycemiaacuteAnemiaacuteCKD stage 4 due to type 2 diabetes mellitusacuteOAB (overactive bladder)acutePrimary osteoarthritis of left hipacuteAnemia of renal diseaseacuteCKD (chronic kidney disease) stage 4, GFR 15-29 ml/pdxwsqjzAdvamacehhylndhmwdrEHT-TITI-[id number] hyperparathyroidismacuteType 2 diabetes mellitus with diabetic chronic kidney diseaseacute [facility] Work Phone: Evaluation note* Diagnosis Onset Date Resolution Status OAB (overactive bladder) acutePreoperative examinationacutePrimary osteoarthritis of left hipacuteType 2 diabetes mellitus with hyperglycemiaacuteAnemiaacuteCKD stage 4 due to type 2 diabetes mellitusacuteOAB (overactive bladder)acutePrimary osteoarthritis of left hipacuteAnemia of renal diseaseacuteCKD (chronic kidney disease) stage 4, GFR 15-29 ml/pdumydpwUrhntpvxeYrvqsmxbenrkecxfjzrLZQ-SPCV-[id number] hyperparathyroidismacuteType 2 diabetes mellitus with diabetic chronic kidney diseaseacuteAcute kidney injuryacuteAnemia of renal diseaseacuteBilateral hydronephrosisacuteCAD (coronary artery disease)acuteCKD (chronic kidney disease)acuteCKD (chronic kidney disease) stage 4, GFR 15-29 ml/minacuteCKD stage 4 due to type 2 diabetes mellitusacuteHistory of CHF (congestive heart failure)acuteHistory of coronary artery bypass graftacuteHydronephrosisacute MshqxdqevsdjxdtnMatekxhyapcevuxdoghZfthmyanadxgwreftTMY-QSAK-[id number] (peripheral artery disease)acuteType 2 diabetes mellitus with diabetic chronic kidney diseaseacuteType 2 diabetes mellitus with hyperglycemiaacuteUrinary obstruction, unspecifiedacute [facility] Work Phone: Evaluation note* Diagnosis Onset Date Resolution Status OAB (overactive bladder) acutePreoperative examinationacutePrimary osteoarthritis of left hipacuteType 2 diabetes mellitus with hyperglycemiaacuteAnemiaacuteCKD stage 4 due to type 2 diabetes mellitusacuteOAB (overactive bladder)acutePrimary osteoarthritis of left hipacuteAnemia of renal diseaseacuteCKD (chronic kidney disease) stage 4, GFR 15-29 ml/reagighlJzapninhkZcijzbwibxliashgcidYUL-ZHJU-[id number] hyperparathyroidismacuteType 2 diabetes mellitus with diabetic chronic kidney diseaseacuteAnemia of renal diseaseacuteBilateral hydronephrosisacuteCAD (coronary artery disease)acuteCKD (chronic kidney disease) stage 4, GFR 15-29 ml/minacuteCKD stage 4 due to type 2 diabetes mellitusacuteHistory of coronary artery bypass graftacuteHydroureteracuteHyperlipidemiaacuteHypertensionacute YMW-GLZS-[id number] (peripheral artery disease)acuteType 2 diabetes mellitus with diabetic chronic kidney diseaseacuteType 2 diabetes mellitus with hyperglycemiaacuteUrinary obstruction, unspecifiedacuteAcute kidney injury resolved [facility] Work Phone: Evaluation note* Diagnosis Onset Date Resolution Status Anemia acuteCKD stage 4 due to type 2 diabetes mellitusacuteOAB (overactive bladder) acutePrimary osteoarthritis of left hipacuteAnemia of renal diseaseacuteCKD (chronic kidney disease) stage 4, GFR 15-29 ml/minacuteGoutacuteHyperlipidemia gjjmvQZP-LSHS-[id number] hyperparathyroidismacuteType 2 diabetes mellitus with diabetic chronic kidney diseaseacuteAnemia of renal diseaseacute Bilateral hydronephrosisacuteCAD (coronary artery disease)acuteCKD (chronic kidney disease) stage 4, GFR 15-29 ml/minacuteCKD stage 4 due to type 2 diabetes mellitusacuteHistory of coronary artery bypass graftacuteHydroureteracute FpngtrpcvqesjcrpnfjIppbbtvemjtcgiineJHA-AZLP-[id number] (peripheral artery disease)acuteType 2 diabetes mellitus with diabetic chronic kidney diseaseacute Type 2 diabetes mellitus with hyperglycemiaacuteUrinary obstruction, unspecified acuteAcute kidney injuryresolvedAnemia of renal diseaseacuteCKD (chronic kidney disease) stage 4, GFR 15-29 ml/minacutePrimary osteoarthritis of left hipacute [facility] Work Phone: Evaluation note* Diagnosis Onset Date Resolution Status Anemia of renal disease acuteCKD (chronic kidney disease) stage 4, GFR 15-29 ml/minacuteGoutacute OltyhsclswmboysdqubIQA-ZCPJ-[id number] hyperparathyroidismacuteType 2 diabetes mellitus with diabetic chronic kidney diseaseacuteAnemia of renal diseaseacuteBilateral hydronephrosisacuteCAD (coronary artery disease)acuteCKD (chronic kidney disease) stage 4, GFR 15-29 ml/minacuteCKD stage 4 due to type 2 diabetes mellitusacuteHistory of coronary artery bypass graftacuteHydroureter nwvjpKfnkfwuuvxoicsxifewCypzdxhwbkigxezloRXT-VAPO-[id number] (peripheral artery disease)acuteType 2 diabetes mellitus with diabetic chronic kidney diseaseacuteType 2 diabetes mellitus with hyperglycemiaacuteUrinary obstruction, unspecifiedacuteAcute kidney injuryresolvedAnemia of renal diseaseacuteCKD (chronic kidney disease) stage 4, GFR 15-29 ml/minacutePrimary osteoarthritis of left hipacuteAnemia of renal diseaseacuteCKD (chronic kidney disease) stage 4, GFR 15-29 ml/minacutePrimary osteoarthritis of left hipacuteSepsis due to urinary tract infectionacuteAnemia of renal diseaseacuteCKD (chronic kidney disease) stage 4, GFR 15-29 ml/minacuteCKD stage 4 due to type 2 diabetes utzalxpfxkspjPenopxpqwsoaugakpmbPZI-CRWN-[id number] hyperparathyroidismacuteType 2 diabetes mellitus with diabetic [facility] disease[facility] Work Phone: Evaluation note* Diagnosis Onset Date Resolution Status Anemia of renal disease acuteCKD (chronic kidney disease) stage 4, GFR 15-29 ml/minacuteGoutacute CplhgcpjgcoxjoefoodBPY-ETTB-[id number] hyperparathyroidismacuteType 2 diabetes mellitus with diabetic chronic kidney diseaseacuteAnemia of renal diseaseacuteBilateral hydronephrosisacuteCAD (coronary artery disease)acuteCKD (chronic kidney disease) stage 4, GFR 15-29 ml/minacuteCKD stage 4 due to type 2 diabetes mellitusacuteHistory of coronary artery bypass graftacuteHydroureter ibkxlLzsxjojzilzetloomhdKdzxzhkogwonoetvvUQX-FVSN-[id number] (peripheral artery disease)acuteType 2 diabetes mellitus with diabetic chronic kidney diseaseacuteType 2 diabetes mellitus with hyperglycemiaacuteUrinary obstruction, unspecifiedacuteAcute kidney injuryresolvedAnemia of renal diseaseacuteCKD (chronic kidney disease) stage 4, GFR 15-29 ml/minacutePrimary osteoarthritis of left hipacuteAnemia of renal diseaseacuteCKD (chronic kidney disease) stage 4, GFR 15-29 ml/minacutePrimary osteoarthritis of left hipacuteSepsis due to urinary tract infectionacuteAnemia of renal diseaseacuteCKD (chronic kidney disease) stage 4, GFR 15-29 ml/minacuteGoutacuteHyperlipidemiaacute BXM-HRQH-[id number]jizjir hyperparathyroidismacuteType 2 diabetes mellitus with diabetic chronic kidney diseaseacute [facility] Work Phone: Evaluation note* Diagnosis Onset Date Resolution Status Anemia of renal disease acuteCKD (chronic kidney disease) stage 4, GFR 15-29 ml/minacuteGoutacute IfjhevujnzxkvkixazbCEJ-YNVS-[id number] hyperparathyroidismacuteType 2 diabetes mellitus with diabetic chronic kidney diseaseacuteAnemia of renal diseaseacuteBilateral hydronephrosisacuteCAD (coronary artery disease)acuteCKD (chronic kidney disease) stage 4, GFR 15-29 ml/minacuteCKD stage 4 due to type 2 diabetes mellitusacuteHistory of coronary artery bypass graftacuteHydroureter qgauvPivlcwrrzfvdgsfzmnbYbpxxtdszhwcummxaKAA-YNIY-[id number] (peripheral artery disease)acuteType 2 diabetes mellitus with diabetic chronic kidney diseaseacuteType 2 diabetes mellitus with hyperglycemiaacuteUrinary obstruction, unspecifiedacuteAcute kidney injuryresolvedAnemia of renal diseaseacuteCKD (chronic kidney disease) stage 4, GFR 15-29 ml/minacutePrimary osteoarthritis of left hipacuteAnemia of renal diseaseacuteCKD (chronic kidney disease) stage 4, GFR 15-29 ml/minacutePrimary osteoarthritis of left hipacuteSepsis due to urinary tract infectionacuteAnemia of renal diseaseacuteCKD (chronic kidney disease) stage 4, GFR 15-29 ml/minacuteGoutacuteHyperlipidemiaacute QUM-QHVW-[id number]jxjlgk hyperparathyroidismacuteType 2 diabetes mellitus with diabetic chronic kidney diseaseacuteUTI (urinary tract infection)acute [facility] Work Phone: Evaluation note* Diagnosis CAD, [...] right carotid artery PVD (peripheral vascular disease) ([facility]) Unspecified peripheral vascular disease documented in this encounter [facility] Work Phone: History of Present illness Narrative* [...] are reviewed and felt to be satisfactory. [facility] 250 DO Work Phone: History of Present [...] are reviewed and felt to be satisfactory. -[facility] 250 DO Work Phone: History of [...] we suggest no change and follow-up as csjcbYL-Iebvsaquod-Grwoouhl 250 DO Work Phone: Hospital course Narrative No data available for this section [facility] Discharge instructions No data available for this section [facility] Discharge instructions Additional Instructions Joint Replacement Discharge Instructions Your safety during your recovery process is important to us. Please seek immediate emergency care if you have sudden chest pain or shortness of breath. Additionally, please call our office at [phone] should any of the following occur: wound [...] over time or it could last forever. DELIA hosyael (stockinette): Wear them for 4 weeks on [...] to walk without your walker and your med care manager until the therapist checks you the following [...] and/or laxatives as directed. You may take ecvf-drm-qxjgiqs Benadryl if itching occurs without a rash or hives. Icing and elevation will help relieve pain as well, do not underestimate the power of ice and elevation. We do recommend that you stop taking narcotic pain medications by 4-6 weeks after surgery and if necessary, continue to use anti-inflammatory medications such as Mobic (meloxicam), Celebrex (celecoxib), or an zdtp-guz-ozxzgfe medication (Aleve, Motrin, Ibuprofen, etc). Driving an [...] feel free to call our office at [phone]. You are a priority of ours and we will not be upset with you if you call. We would much rather you call to confirm aspects of your recovery process as opposed to possibly hindering your recovery with inappropriate care. We are committed to providing you with the best care possible. Da Lozano II, MD Updated 08/04/23[facility] Work Phone: Hospital Discharge instructionsAmbulatory Orders* Initiate Home Health Time Frame: 1 Day, Location: Determined By Patient Additional Instructions Home Health to manage care: - Full code - PT/OT eval and treat - Routine vital signs - Medication management and education - Fingerstick blood sugar [facility] Work Phone: InstructionsNot on filedocumented in this encounter [facility] SystemInstructionsNot on filedocumented in this encounter [facility] SystemInstructionsNot on filedocumented in this encounter [facility] SystemProgress note No data available for this section [facility] HospitalProgress note Author Mateo Schaeffer [facility] Medical CenterNote Date/TimeSeptember 2024 1:11pm [place] [address] Hospitalist Progress Note Signed Patient: Lexi Tatum MR#: [id number] : 1945 Acct:[id number] Age/Sex: 79 / F Adm Date: Loc: Room: [address] [place] [address] Type: ADM IN Attending Dr: Mateo Schaeffer [...] of care and confirmed it with the re sident/student/[employer]. Pt evaluated at bedside today. No acute events overnight. She reports feeling better overall today.She is on supplemental oxygen at 2L nasal [...] 04/08/25 09:00 04/09/25 09:20 Aspirin 81 Mg Tablet.Dr PO 04/08/26 08:59 [...] Tablet PO 04/08/26 15:09 Not Given DAILY REBA Valsartan 40 mg 04/08/25 21:00 04/09/25 09:20 Valsartan 40 Mg Tablet PO 04/08/26 20:59 Not Given BID REBA A&P - Hospitalist Assessment/Plan (1) CHF exacerbation: (2) Coronary artery disease: (3) Steroid-induced hyperglycemia: (4) Gout: (5) Type 2 diabetes mellitus with diabetic chronic kidney disease: Plan Pt is hospital day 2 due to worsening SOB and edema over last few days/weeks. She is feeling bettertoday, but still has pitting edema in bilateral LE. (1) CHF exacerbation: ? Physical exam and presentation is consistent with CHF exacerbation - Supplemental O2 at 2L nasal cannula today ? Lasix changed to oral 40mg twice per day ? Transthoracic echocardiogram ordered ? Continue remainder of her home medications including carvedilol, Spironolactone decreased to 12.5and valsartan decreased to 20 due to hypotension ? Aspirin and Plavix ordered ? Cardiology consulted, seen by Dr. Cobb yesterday ? Strict I's and O's ? Daily weights (2) Coronary artery disease: ? Her troponin were mildly elevated at 66 at [place], have decreased to 61 withtoday's early labs [...] signed by Mateo Schaeffer MD> 04/09/25 1311 [facility] Work Phone: Reason for referral (narrative)* Consultation (Routine) - AuthorizedSpecialtyDiagnoses / ProceduresReferred By Contact Referred To ContactCardiology Diagnoses Occlusion and stenosis of right carotid artery Procedures Follow Up In Cardiology Shahrzad Morales MD [address] [facility] [address] [place] [address] Angela Braun, 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 [address] [facility] [address] [place] [address] Referral IDStatusReasonStart DateExpiration DateVisits RequestedVisits [id number]/6/20243/[id number] * Cardiac Stress Testing (Routine) - Pending ReviewSpecialtyDiagnoses / ProceduresReferred By ContactReferred To ContactRadiology Diagnoses CAD, multiple vessel S/P CABG x 3 Ischemic cardiomyopathy Occlusion and stenosis of right carotid artery Shortness of breath Procedures Nuclear Stress Test CHG MYOCARDIAL SPECT MULTIPLE STUDIES Shahrzad Morales MD [address] [facility] [address] [place] [address] Referral IDStatusReasonStart DateExpiration DateVisits RequestedVisits [id number] Review [facility] Work Phone: Reason for referral (narrative)No reason for referral information availableSelect [facility] Work [facility]: Reason for visit NarrativeNEW SELF REFERRAL [facility] Other Summary Purpose Family History Unknown Family Member Name Dates Details Family history of hypertensi on: Mother(V17.49, Z82.49) Status:ActiveFamily history of malignant neoplasm of kidney: Brother(V16.51, Z80.51) Status:ActiveHeart problem: Father Status:Active Unknown Family Member Name Dates Details Family history of hypertensi on: Mother(V17.49, Z82.49) Status:ActiveFamily history of malignant neoplasm of kidney: Brother(V16.51, Z80.51) Status:ActiveHeart problem: Father Status:Active Unknown Family Member Name Dates Details Family history of hypertensi on: Mother(V17.49, Z82.49) Status:ActiveFamily history of malignant neoplasm of kidney: Brother(V16.51, Z80.51) Status:ActiveHeart problem: Father Status:Active Unknown Family Member Name Dates Details Family history of hypertensi on: Mother(V17.49, Z82.49) Status:ActiveFamily history of malignant neoplasm of kidney: Brother(V16.51, Z80.51) Status:ActiveHeart problem: Father Status:Active Unknown Family Member Name Dates Details Family history of hypertensi on: Mother(V17.49, Z82.49) Status:ActiveFamily history of malignant neoplasm of kidney: Brother(V16.51, Z80.51) Status:ActiveHeart problem: Father Status:Active Unknown Family Member Name Dates Details Family history of hypertensi on: Mother(V17.49, Z82.49) Status:ActiveFamily history of malignant neoplasm of kidney: Brother(V16.51, Z80.51) Status:ActiveHeart problem: Father Status:Active Unknown Family Member Name Dates Details Family history of hypertensi on: Mother(V17.49, Z82.49) Status:ActiveFamily history of malignant neoplasm of kidney: Brother(V16.51, Z80.51) Status:ActiveHeart problem: Father Status:Active Unknown Family Member Name Dates Details Family history of hypertensi on: Mother(V17.49, Z82.49) Status:ActiveFamily history of malignant neoplasm of kidney: Brother(V16.51, Z80.51) Status:ActiveHeart problem: Father Status:Active Unknown Family Member Name Dates Details Heart problem: Father Status:ActiveFamily history of malignant neoplasm of kidney: Brother(V16.51, Z80.51) Status:ActiveFamily history of hypertension: Mother(V17.49, Z82.49) Status:Active Unknown Family Member Name Dates Details Family history of hypertensi on: Mother(V17.49, Z82.49) Status:ActiveFamily history of malignant neoplasm of kidney: Brother(V16.51, Z80.51) Status:ActiveHeart problem: Father Status:Active Relationship Condition Age at Onset Recorded Date/T angelina Not Specified Hypertension Unknown Relationship Condition Age at Onset Recorded Date/T angelina father Coronary artery disease Unknown motherHypertensionUnknownbrotherMalignant neoplasm of kidneyUnknown Advance Directives Advance Directive Response Recorded Date/ Time Advance Directives No May 12, 2017 12:05pm Advance Directive Response Recorded Date/ Time Advance Directives No May 12, 2017 11:05am Date ActivatedDate MxtztyvoewyOvclwnbp97/26/2025 8:30 PMDate ActivatedDate IjkualwutveHwullqie94/26/2025 8:30 PM05/20/2025 1:51 PM Chief Complaint LEXI CASTILLO is being seen [...] of left hip (M16.12) Referral Organization [facility] Referring Provider First Name Ross Referring Provider Last Name Darrian Referring Provider Specialty Pain Medici ne Referred Organization [facility] Referred Provider Da Lozano II Referred Address [address] [facility] [place] [place], [place],[address] Referred Provider Specialty Orthopedic S urgery Referral Priority Routine Referral Appointment Date 2022-12-04 General Notes Amanda Camejo 08:40:19 AM >received today, patient is scheduled already with Dr Lozano 12/04/22. Sending the p2p at this time SpecialtyDiagnoses / ProceduresReferred By ContactReferred To ContactRadiology Diagnoses CAD, multiple vessel S/P CABG x 3 Ischemic cardiomyopathy Occlusion and stenosis of right carotid artery Shortness of breath Procedures Nuclear Stress Test CHG MYOCARDIAL SPECT MULTIPLE STUDIES Shahrzad Morales MD [address] [facility] [address] [place] [address] Referral IDStatusReasonStart DateExpiration DateVisits RequestedVisits [id number] Review/ Chief Complaint and Reason for Visit Chief Complaint Op Sp Lt Hip Pain, N ext Step establish- see son op sp discuss next step UTI - UAReason for VisitOsteoarthritis of left hip Type 2 diabetes mellitus with hyperglycemia UTI (urinary tract infection) Lumbar pain Osteoarthritis of left hip Uncontrolled diabetes mellitus Chief Complaint establish- see son op sp discuss next step UTI - UA presurgical clearence. lt total hip M16.12 Z79.899 M81.0Reason for VisitOsteoarthritis of left hip Type 2 diabetes mellitus with hyperglycemia UTI (urinary tract infection) Lumbar pain Osteoarthritis of left hip Uncontrolled diabetes mellitus OAB (overactive bladder) Preoperative examination Primary osteoarthritis of left hip Type 2 diabetes mellitus with hyperglycemia Chief Complaint op sp discuss next s tep UTI - UA presurgical clearence. lt total hip M16.12 Z79.899 M81.0 pre surgical testing resultsReason for VisitLumbar pain Osteoarthritis of left hip Uncontrolled diabetes mellitus OAB (overactive bladder) Preoperative examination Primary osteoarthritis of left hip Type 2 diabetes mellitus with hyperglycemia Chief Complaint UTI - UA presurgical clearence. lt total hip M16.12 Z79.899 M81.0 pre surgical testing results RENAL CKD 4Reason for VisitOAB (overactive bladder) Preoperative examination Primary osteoarthritis of left hip Type 2 diabetes mellitus with hyperglycemia Anemia CKD stage 4 due to type 2 diabetes mellitus OAB (overactive bladder) Primary osteoarthritis of left hip Anemia of renal disease CKD (chronic kidney disease) stage 4, GFR 15-29 ml/min Hyperlipidemia [id number] Secondary hyperparathyroidism Type 2 diabetes mellitus with diabetic chronic kidney disease Chief Complaint presurgical clearenc e. lt total hip M16.12 Z79.899 M81.0 pre surgical testing results RENAL CKD [address] sunshine sent overReason for VisitOAB (overactive bladder) Preoperative examination Primary osteoarthritis of left hip Type 2 diabetes mellitus with hyperglycemia Anemia CKD stage 4 due to type 2 diabetes mellitus OAB (overactive bladder) Primary osteoarthritis of left hip Anemia of renal disease CKD (chronic kidney disease) stage 4, GFR 15-29 ml/min Gout Hyperlipidemia [id number] Secondary hyperparathyroidism Type 2 diabetes mellitus with diabetic chronic kidney disease Acute kidney injury Anemia of renal disease Bilateral hydronephrosis CAD (coronary artery disease) CKD (chronic kidney disease) CKD (chronic kidney disease) stage 4, GFR 15-29 ml/min CKD stage 4 due to type 2 diabetes mellitus History of CHF (congestive heart failure) History of coronary artery bypass graft Hydronephrosis Hydroureter Hyperlipidemia Hypertension [id number]-[id number] PAD (peripheral artery disease) Type 2 diabetes mellitus with diabetic chronic kidney disease Type 2 diabetes mellitus with hyperglycemia Urinary obstruction, unspecified Chief Complaint presurgical clearenc e. lt total hip M16.12 Z79.899 M81.0 pre surgical testing results RENAL CKD [address] sunshine sent [place] [facility] [place] for stents in kidneyReason for VisitOAB (overactive bladder) Preoperative examination Primary osteoarthritis of left hip Type 2 diabetes mellitus with hyperglycemia Anemia CKD stage 4 due to type 2 diabetes mellitus OAB (overactive bladder) Primary osteoarthritis of left hip Anemia of renal disease CKD (chronic kidney disease) stage 4, GFR 15-29 ml/min Gout Hyperlipidemia [id number] Secondary hyperparathyroidism Type 2 diabetes mellitus with diabetic chronic kidney disease Anemia of renal disease Bilateral hydronephrosis CAD (coronary artery disease) CKD (chronic kidney disease) stage 4, GFR 15-29 ml/min CKD stage 4 due to type 2 diabetes mellitus History of coronary artery bypass graft Hydroureter Hyperlipidemia Hypertension [id number]-[id number] PAD (peripheral artery disease) Type 2 diabetes mellitus with diabetic chronic kidney disease Type 2 diabetes mellitus with hyperglycemia Urinary obstruction, unspecified Acute kidney injury Chief Complaint pre surgical testing results RENAL CKD [address] sunshine sent [place] [facility] [place] kidney [facility], Acute metobolic encephalopaty, utiReason for VisitAnemia CKD stage 4 due to type 2 diabetes mellitus OAB (overactive bladder) Primary osteoarthritis of left hip Anemia of renal disease CKD (chronic kidney disease) stage 4, GFR 15-29 ml/min Gout Hyperlipidemia [id number] Secondary hyperparathyroidism Type 2 diabetes mellitus with diabetic chronic kidney disease Anemia of renal disease Bilateral hydronephrosis CAD (coronary artery disease) CKD (chronic kidney disease) stage 4, GFR 15-29 ml/min CKD stage 4 due to type 2 diabetes mellitus History of coronary artery bypass graft Hydroureter Hyperlipidemia Hypertension RSU-[id number] PAD (peripheral artery disease) Type 2 diabetes mellitus with diabetic chronic kidney disease Type 2 diabetes mellitus with hyperglycemia Urinary obstruction, unspecified Acute kidney injury Anemia of renal disease CKD (chronic kidney disease) stage 4, GFR 15-29 ml/min Primary osteoarthritis of left hip Chief Complaint RENAL CKD [address] sunshine sent [place] [facility] [place] in kidney [facility], Acute metobolic encephalopaty, [place] RENAL 2 MONTH F/UReason for VisitAnemia of renal disease CKD (chronic kidney disease) stage 4, GFR 15-29 ml/min Gout Hyperlipidemia [id number] Secondary hyperparathyroidism Type 2 diabetes mellitus with diabetic chronic kidney disease Anemia of renal disease Bilateral hydronephrosis CAD (coronary artery disease) CKD (chronic kidney disease) stage 4, GFR 15-29 ml/min CKD stage 4 due to type 2 diabetes mellitus History of coronary artery bypass graft Hydroureter Hyperlipidemia Hypertension GPE-JUVI-[id number] PAD (peripheral artery disease) Type 2 diabetes [...] due to type 2 diabetes mellitus Hyperlipidemia [id number]-[id number] Secondary hyperparathyroidism Type 2 diabetes mellitus with diabetic chronic kidney disease Chief Complaint RENAL CKD [address] sunshine sent [place] [facility] [place] in kidney [facility], Acute metobolic encephalopaty, [place] RENAL 2 MONTH F/U UA frequency, burningReason for VisitAnemia of renal disease CKD (chronic kidney disease) stage 4, GFR 15-29 ml/min Gout Hyperlipidemia [id number] Secondary hyperparathyroidism Type 2 diabetes mellitus with diabetic chronic kidney disease Anemia of renal disease Bilateral hydronephrosis CAD (coronary artery disease) CKD (chronic kidney disease) stage 4, GFR 15-29 ml/min CKD stage 4 due to type 2 diabetes mellitus History of coronary artery bypass graft Hydroureter Hyperlipidemia Hypertension [id number] PAD (peripheral artery disease) Type 2 diabetes [...] stage 4, GFR 15-29 ml/min Gout Hyperlipidemia [id number]-[id number] Proteinuria Secondary hyperparathyroidism Type 2 diabetes mellitus with diabetic chronic kidney disease Chief Complaint RENAL CKD [address] sunshine sent [place] [facility] [place] in kidney [facility], Acute metobolic encephalopaty, [place] RENAL 2 MONTH F/U UA frequency, burningReason for VisitAnemia of renal disease CKD (chronic kidney disease) stage 4, GFR 15-29 ml/min Gout Hyperlipidemia [id number]-[id number] Secondary hyperparathyroidism Type 2 diabetes mellitus with diabetic chronic kidney disease Anemia of renal disease Bilateral hydronephrosis CAD (coronary artery disease) CKD (chronic kidney disease) stage 4, GFR 15-29 ml/min CKD stage 4 due to type 2 diabetes mellitus History of coronary artery bypass graft Hydroureter Hyperlipidemia Hypertension [id number] PAD (peripheral artery disease) Type 2 diabetes [...] stage 4, GFR 15-29 ml/min Gout Hyperlipidemia [id number] Proteinuria Secondary hyperparathyroidism Type 2 diabetes mellitus with diabetic chronic kidney disease UTI (urinary tract infection) Chief Complaint Admit Date [facility], Acute metobolic encephalopaty, [place] March 05, 2024 [...] Stratification May 1:55pm Pre-Surgical Clearance-HIGH RISK Novembe 2023 9:55am hydronephrosis May 21, 2024 1 [...] 20, 2024 9:55am Preoperative examination May 20, 9:55am Primary osteoarthritis of left hip Novem [...] 10:55am Type 2 diabetes mellitus with hyperglyce [facility] July 01, 2024 10:55am Anemia of renal [...] 3:11pm Type 2 diabetes mellitus with hyperglyce [facility] January 11, 2025 3:11pm Acute on chronic systolic (congestive) h eart failure January 31, 2025 3:29pm CKD (chronic kidney disease) stage 4, GF R 15-29 ml/min January 31, 2025 3:29pm Hypertension January 31, 2025 3:29 pm Osteoarthritis of left hip January 31 3:29pm Preoperative examination January 31, 2025 3:29pm Type 2 diabetes mellitus with hyperglyce [facility] January 31, 2025 3:29pm Anemia of renal [...] 2025 10:00am S/P [facility] 10:00am Chief Complaint Admit Date A1C January [...] 22, 2025 5:26pm PAD (peripheral artery disease) [facility] 2024 5:26pm Steroid-induced hyperglycemia March 22, [...] March 10:00am S/P total left hip arthroplasty [facility] 2024 10:00am Weakness March 21, 2025 10:00am Acute on chronic systolic (congestive) h eart failure March 22, 2025 5:26pm CKD (chronic kidney disease) March 222024 5:26pm CKD (chronic kidney disease) stage 4, GF R 15-29 ml/min March 22, 2025 5:26pm Hyperlipidemia March 22, 2025 5:26pm Hypertension March 22, 2025 5:26pm Impaired mobility March 22, 2025 5:26pm [facility] 2024 5:26pm Steroid-induced hyperglycemia March 22, 2025 5:26pm Type 2 diabetes mellitus with hyperglyce [facility] March 22, 2025 5:26pm S/[facility] 2:07[facility] Chief Complaint Admit Date [...] 2025 10:00am left hip osteoarthritis s/p LIVIER [facility] 2024 5:26pm left hip osteoarthritis s/p [facility] 12[facility] Amb Documentation April 04, 2025 3:32pm 2 WK POST OP LTHA April 06, 2025 2:07pm CHF, Elevated troponin April 07, 2 025 11:35pm Reason for Visit Admit Date [...] 3:11pm Type 2 diabetes mellitus with hyperglyce [facility] January 11, 2025 3:11pm Acute on chronic [...] March 10:00am S/P total left hip arthroplasty [facility] r 2024 10:00am Weakness March 21, 2025 [...] 2025 2:07pm S/P total left hip arthroplasty [facility] 2024 2:07pm CHF exacerbation April 07, [...] 2025 2:07pm CHF, Elevated troponin April 07, 11:35pm Unknown April 11, 2025 10:20am Reason [...] 22, 2025 5:26pm PAD (peripheral artery [facility]) [facility] total left hip [facility] r 2024 5:26pm Type 2 diabetes mellitus with hyperglyce [facility] March 22, 2025 5:26pm Acute on chronic systolic (congestive) h eart failure March 22, 2025 5:26pm Steroid-induced hyperglycemia March 22, 2025 5:26pm Aftercare following left hip joint repla cement surgery April 06, 2025 2:07pm S/P total left hip arthroplasty [facility] 2024 2:07pm CKD (chronic kidney disease) March 152024 11:35pm CHF exacerbation April 07, 2025 11:35pm Coronary artery disease April 07, 2025 11:35pm Gout April 07, 2025 11:35pm Ischemic cardiomyopathy April 07, 2025 11:35pm Steroid-induced hyperglycemia April 07, 2025 11:35pm Type 2 diabetes mellitus wit h diabetic chronic kidney disease April 07, 2025 11:35pm Chief Complaint Admit Date 6 month f/u February 08, 2025 3:30 [...] 025 11:35pm Unknown April 11, 2025 10:20am Amb Documentation April 18, 2025 8: 16am Skilled Nursing Visit April 18, 2025 11 :59pm Unknown May 03, 2025 2 :40am Reason for Visit Admit Date Anemia of renal disease February 08, 2025 [...] 22, 2025 5:26pm PAD (peripheral artery disease) [facility] 2024 5:26pm S/P total left hip arthroplasty [facility] 2024 5:26pm Type 2 diabetes mellitus with hyperglyce [facility] March 22, 2025 5:26pm Acute on chronic systolic (congestive) h eart failure March 22, 2025 5:26pm Steroid-induced hyperglycemia March 22, 2025 5:26pm Aftercare following left hip joint repla cement surgery April 06, 2025 2:07pm S/P total left hip arthroplasty [facility] 2024 2:07pm CKD (chronic kidney disease) [...] section and content) DATE CREATED AUTHOR 12/31/2017 [facility] DATE CREATED AUTHOR AUTHOR'S ORGANIZ ATION 01/07/2018 [facility] DATE CREATED AUTHOR AUTHOR'S ORGANIZ ATION 05/17/2020 [facility] DATE CREATED AUTHOR AUTHOR'S ORGANIZ ATION 02/14/2022 [facility] DATE CREATED AUTHOR AUTHOR'S ORGANIZ ATION 07/26/2022 [facility] (formerly [facility])[3] DATE CREATED AUTHOR AUTHOR'S ORGANIZ ATION 07/26/2022 [employer] DATE CREATED AUTHOR AUTHOR'S ORGANIZ ATION 02/28/2024 [facility] DATE CREATED AUTHOR AUTHOR'S ORGANIZ ATION 02/29/2024 [facility] DATE CREATED AUTHOR AUTHOR'S ORGANIZ ATION 03/01/2024 [facility] DATE CREATED AUTHOR AUTHOR'S ORGANIZ ATION 03/04/2024 [facility] DATE CREATED AUTHOR AUTHOR'S ORGANIZ ATION 03/07/2024 [facility] DATE CREATED AUTHOR AUTHOR'S ORGANIZ ATION 03/11/2024 [facility] DATE CREATED AUTHOR AUTHOR'S ORGANIZ ATION 05/16/2024 [facility] DATE CREATED AUTHOR AUTHOR'S ORGANIZ ATION 03/08/2025 [facility] DATE CREATED AUTHOR AUTHOR'S ORGANIZ ATION 04/20/2025 [facility] DATE CREATED AUTHOR AUTHOR'S ORGANIZ ATION 05/02/2025 [facility] DATE CREATED AUTHOR AUTHOR'S ORGANIZ ATION 05/09/2025 [facility] Care Teams (unrecognized sec tion and content) Team Status: Active Member Role Status Dates Stefan Best MD Primary Care Provider Active Team Status: Inactive Member Role Status Dates Stefan Best MD Primary Care Provider Active Start: October 22, 2024 End: October 22, 2024Kirstin Olmstead ProviderActiveStart: October 22, 2024 End: October 22, 2024 Team Status: Inactive Member Role Status Dates Stefan Best MD Primary Care Provider Active Start: November 15, 2024 End: November 15, 2024Kirstin Salinas ProviderActiveStart: November 15, 2024 End: November 15, 2024 Team Status: Inactive Member Role Status Dates Stefan Best MD Primary Care Provider Active Start: January 11, 2025 End: January 11, 2025Kirstin Salinas ProviderActiveStart: January 11, 2025 End: January 11, 2025 Team Status: Active Member Role Status Dates Stefan Best MD Primary Care Provider Active Start: September 26, 2024 Kirstin Luz ProviderActiveStart: September 26, 2024 Team Status: Active Member Role Status Dates Stefan Best MD Primary Care Provide r, Attending Provider Active Start: September 27, 2024 Team Status: Active Member Role Status Dates Stefan Best MD Primary Care Provider Active Start: September 27, 2024 Parker Summers ProviderActiveStart: September 27, 2024 Team Status: Inactive Member [...] Start: June 24, 2024 End: June 24, 2024Arpita Salinas Care ProviderActiveStart: June 24, 2024 End: June 24, 2024 Team Status: Inactive Member Role Status Celia Best MD Primary Care Provider Active Start: June 28, 2024 End: June 28Kirstin Britton II ProviderActiveStart: June 28, 2024 End: June 28, 2024 Team Status: Inactive Member Role Status Dates Da Lozano II, MD Attending Provider Active Start: June 28, 2024 End: June 28, 2024Arpita Salinas Care ProviderActiveStart: June 28, 2024 End: June 28, 2024 Team Status: Inactive Member Role Status Dates Stefan Best MD Primary Care Provide r, Attending Provider Active Start: July 01, 2024 End: July 01harshil Castellanos [facility] CoordinationActiveStart: July 01, 2024 End: July 01, 2024 Team Status: Inactive Member Role Status Dates Da Lozano II, MD Attending Provider Active Start: July 12, 2024 End: July 12, 2024Arpita Salinas Care ProviderActiveStart: July 12, 2024 End: July 12, 2024 Team Status: Inactive Member Role Status Celia Best MD Primary Care Provide r, Attending Provider Active Start: July 15, 2024 End: July 15, 2024 Team Status: Inactive Member Role Status Celia Best MD Primary Care Provider Active Start: August 03, 2024 End: August 03Crow Martinezending ProviderActiveStart: August 03, 2024 End: August 03, 2024 [...] Start: May 21, 2024 End: May 21, 2024Crow Olmsteadending ProviderActiveStart: May 21, 2024 End: May 21, 2024 Team Status: Inactive Member Role Status Dates Stefan Best MD Primary Care Provide r, Attending Provider Active Start: May 25, 2024 End: May 25, 2024 Team Status: Inactive Member Role Status Dates Stefan Best MD Primary Care Provider Active Start: 2024 End: June 04, 2024Kirstin Olmstead ProviderActiveStart: 2024 End: 2024 Team Status: Inactive Member Role Status Dates Stefan Best MD Primary Care Provider Active Start: January 12, 2024 End: January 11lionel Ashby MDAttending ProviderActiveStart: January 12, 2024 End: January 12, 2024 Team Status: Inactive Member Role Status Dates Stefan Best MD Primary Care Provider Active Start: January 22, 2024 End: January 24Madonna Martinez ProviderActiveStart: January 22, 2024 End: January 25, 2024Norberto Pires , DOAdmit Provider, Attending Provider ActiveStart: January 22, 2024 End: January 25, 2024Malachi Hoover ProviderActiveStart: January 22, 2024 End: January 25, 2024Malachi Olmstead ProviderActiveStart: January 22, 2024 End: January 25, 2024 Team Status: Active Member Role Status Dates Stefan Best MD Primary Care Provider Active Start: January 23, 2024 Madonna eBnitez ProviderActiveStart: January 23, 2024 Norberto Pires , DOAdmit Provider, Other ProviderActiveStart: January 23, 2024 Kirstin Hoover Provider, Other ProviderActiveStart: January 23, 2024 Malachi Olmstaed ProviderActiveStart: January 23, 2024 Team Status: Inactive Member [...] Provider Active Start: March 17, 2024 Leroy Isma , MDAttending ProviderActiveStart: March 17, 2024 Team Status: Active Member Role Status Dates Stefan Best MD Primary Care Provider Active Start: March 19, 2024 Leroy Isma , ELOYttending ProviderActiveStart: March 19, 2024 Team Status: Inactive Member Role Status Dates Stefan Best MD Primary Care Provider Active Start: March 22, 2024 End: March 22lionel Akinsr , ELOYttending ProviderActiveStart: March 22, 2024 End: March 22, 2024 Team Status: Active Member Role Status Dates Stefan Best MD Primary Care Provide r, Attending Provider Active Start: November 22, 2023 Team Status: Inactive Member Role Status Dates Stefan Bets MD Primary Care Provide r, Attending Provider Active Start: November 27, 2023 End: November 27, 2023 Team Status: Inactive Member Role Status Dates Stefan Best MD Primary Care Provider Active Start: December 02, 2023 End: December 01celestine Lozano II, ELOYttending ProviderActiveStart: December 02, 2023 End: December 02, 2023 [...] Li Lee MD Primary Care Provider Active Kirstin Zuluaga ProviderActiveTeam MemberRelationshipSpecialtyStart DateEnd Date Shahrzad Morales MD [address] [facility] [address] [place] [address] PCP - MSSP ACO Attributed Provider01/11/23 Stefan Best MD [address] [place] [address] [place] [address] PCP - GeneralFamily Medicine09/17/23Team MemberRelationshipSpecialtyStart DateEnd Date Shahrzad Morales MD [address] [facility] [address] [place] [address] PCP - MSSP ACO Attributed Provider01/11/23 Stefan Best MD [address] [place] [address] [place] [address] PCP - GeneralFamily Medicine09/17/23Team MemberRelationshipSpecialtyStart DateEnd Date Shahrzad Morales MD [address] [facility] [address] [place] [address] PCP - MSSP ACO Attributed Provider01/11/23 Stefan Best MD [address] [place] [address] [place] [address] PCP - GeneralFamily Medicine09/17/23Team MemberRelationshipSpecialtyStart DateEnd Date Shahrzad Morales MD [address] [facility] [address] [place] [address] PCP - MSSP ACO Attributed Provider01/11/23 Stefan Best MD [address] [place] [address] [place] [address] PCP - GeneralFamily Medicine09/17/23Team MemberRelationshipSpecialtyStart DateEnd Date Shahrzad Morales MD [address] [facility] [address] [place] [address] [facility] - [facility] Attributed Provider01/11/23 Stefan Best MD [address] [place] [address] [place] [address] PCP - [facility]09/17/23 Team Status: Inactive Member Role Status Dates [...] Active Start: September 17, 2023 End: September 16Kirstin Britton II ProviderActiveStart: September 17, 2023 End: September 17, 2023 [...] art: April 07, 2024 End: April 07, 2024Team MemberRelationshipSpecialtyStart DateEnd Date Stefan Best MD PCP - [facility]09/17/23 Team Status: Active Member Role Status Dates Stefan Best MD Primary Care Provider Active Start: January 25, 2025 Kirstin Geiger II ProviderActiveStart: January 25, 2025 Team Status: Inactive Member Role Status Dates Stefan Best MD Primary Care Provider Active Start: January 31, 2025 End: January 31, 2025Marcia E Best , MDAttending ProviderActiveStart: January 31, 2025 End: January 31, 2025 Team Status: Active Member Role Status Dates Stefan Best MD Primary Care Provider Active Start: February 07, 2025 Leroy Isma , MDAttending ProviderActiveStart: February 07, 2025 Team Status: Inactive Member Role Status Dates Stefan Best MD Primary Care Provider Active Start: February 08, 2025 End: February 08bdul Isma , MDAttending ProviderActiveStart: February 08, 2025 End: February 08, 2025 Team Status: Inactive Member Role Status Dates Stefan Best MD Primary Care Provider Active Start: March 03, 2025 End: March 03, 2025Da Lozano II, MDAttending ProviderActiveStart: March 03, 2025 End: March 03, 2025 Team Status: Inactive Member Role Status Dates Stefan Best MD Primary Care Provider Active Start: March 09, 2025 End: March 09, 2025Da Lozano II, MDAttending ProviderActiveStart: March 09, 2025 End: March 09, 2025 Team Status: Active Member Role Status Dates Stefan Best MD Primary Care Provider Active Start: March 09, 2025 Da Lozano II, MDAttending ProviderActiveStart: March 09, 2025 Team Status: Inactive Member Role Status Celia Best MD Primary Care Provider Active Start: March 11, 2025 End: March 11, 2025Da Lozano II, MDAttending ProviderActiveStart: March 11, 2025 End: March 11, 2025 Team Status: Active Member Role Status Dates Stefan Best MD Primary Care Provider Active Start: March 21, 2025 Da Lozano II, MDAttending ProviderActiveStart: March 21, 2025 Da Lozano II, MDOther ProviderActiveStart: March 21, 2025 Lily Yanes RNOther ProviderActiveStart: March 21, 2025 End: March 22, 2025Jacinda Taylor RNOther ProviderActiveStart: March 21, 2025 End: March 22, 2025Sherrie Yoder RNOther ProviderActiveStart: March 21, 2025 End: March 22, 2025Mocrissy Marshall RNOther ProviderActiveStart: March 21, 2025 End: March 22, 2025Markoby Taylor RNOther ProviderActiveStart: March 21, 2025 End: March 22, 2025Kalyani Ferrari RNOther ProviderActiveStart: March 21, 2025 End: March 22, 2025Radelaney Alvarez MDOther ProviderActiveStart: March 21, 2025 End: March 22, 2025Ronmontrell De La Cruz DOOther ProviderActiveStart: March 21, 2025 End: March 22, 2025Musharjinder Osorio MDOther ProviderActiveStart: March 21, 2025 End: March 22, 2025Norberto Pires DOOther ProviderActiveStart: March 21, 2025 End: March 22ndcarter Schaeffer MDOther ProviderActiveStart: March 21, 2025 End: March 22, 2025RuMalachi Faustin ProviderActiveStart: March 21, 2025 End: March 22, 2025Miceladio Maher DOOther ProviderActiveStart: March 21, 2025 End: March 22, 2025Mason Rivera MDOther ProviderActiveStart: March 21, 2025 End: March 22, 2025LySebastien Barrosoher ProviderActiveStart: March 21, 2025 End: March 22, 2025Malachi Zhou ProviderActiveStart: March 21, 2025 End: March 22, 2025Nathan Gibson MDOther ProviderActiveStart: March 21, 2025 End: March 22, 2025Sahiro Ventura MDOther ProviderActiveStart: March 21, 2025 End: March 22, 2025MicRenetta Hoffman ProviderActiveStart: March 21, 2025 End: March 22, 2025Malachi Oneal ProviderActiveStart: March 21, 2025 End: March 22, 2025EarMalachi Leigh ProviderActiveStart: March 21, 2025 End: March 22my J Albany , [employer]-COther ProviderActiveStart: March 21, 2025 End: March 22dchandrakant Smith , APRNOther ProviderActiveStart: March 21, 2025 End: March 22, 2025Dany Schroeder MDOther ProviderActiveStart: March 21, 2025 End: March 22, 2025Naeeran Mai MDOther ProviderActiveStart: March 21, 2025 End: March 22, 2025Khsteffen Ledbetter MDOther ProviderActiveStart: March 21, 2025 End: March 22, 2025Chevy Espino DOOther ProviderActiveStart: March 21, 2025 End: March 22, 2025Vy Ortiz APRNOther ProviderActiveStart: March 21, 2025 End: March 22, 2025Shdejon Mackenzie DOOther ProviderActiveStart: March 21, 2025 End: March 22, 2025Nikolai Melgoza MDOther ProviderActiveStart: March 21, 2025 End: March 22, 2025Palevon Braun APRNOther ProviderActiveStart: March 21, 2025 End: March 22licjustin Inman APRNOther ProviderActiveStart: March 21, 2025 End: March 22Malachi Mckeon ProviderActiveStart: March 21, 2025 End: March 22, 2025Daangella Atkinson MDOther ProviderActiveStart: March 21, 2025 End: March 22bart Jaime DOOther ProviderActiveStart: March 21, 2025 End: March 22, 2025Malachi Davis ProviderActiveStart: March 21, 2025 End: March 22macy Alvarado MDOther ProviderActiveStart: March 21, 2025 End: March 22Anastacia Lloyd ProviderActiveStart: March 21, 2025 End: March 22, 2025Malachi oCx ProviderActiveStart: March 21, 2025 End: March 22, 2025Earnest Noel MDOther ProviderActiveStart: March 21, 2025 End: March 22, 2025Mason Flanagan MDOther ProviderActiveStart: March 21, 2025 End: March 22, 2025Hill Marmolejo MDOther ProviderActiveStart: March 21, 2025 End: March 22, 2025Maryana Walker , APRNOther ProviderActiveStart: March 21, 2025 End: March 22, 2025Susanne Rodriguez , APRNOther ProviderActiveStart: March 21, 2025 End: March 22, 2025Lexi South , RNOther ProviderActiveStart: March 21, 2025 End: March 22, 2025 Team Status: Active Member Role Status Dates Stefan Best MD Primary Care Provider Active Start: March 21, 2025 Da Lozano II, MDOther ProviderActiveStart: March 21, 2025 Earnest Ferrari MDOther ProviderActiveStart: March 21, 2025 Lily Yanes , RNOther ProviderActiveStart: March 21, 2025 Jacinda Taylor , RNOther ProviderActiveStart: March 21, 2025 Sherrie Yoder , RNOther ProviderActiveStart: March 21, 2025 Namrata Marshall , RNOther ProviderActiveStart: March 21, 2025 Selene Taylor , LIANEOther ProviderActiveStart: March 21, 2025 Kalyani Ferrari , RNOther ProviderActiveStart: March 21, 2025 Trace Alvarez MDOther ProviderActiveStart: March 21, 2025 Clayton De La Cruz , DOOther ProviderActiveStart: March 21, 2025 Stewart Osorio MDOther ProviderActiveStart: March 21, 2025 Norberto Pires , DOOther ProviderActiveStart: March 21, 2025 Mateo Schaeffer MDOther ProviderActiveStart: March 21, 2025 Maxine Ovalle MDOther ProviderActiveStart: March 21, 2025 David Maher , DOOther ProviderActiveStart: March 21, 2025 Mason Rivera MDOther ProviderActiveStart: March 21, 2025 Vandana Urbina , APRNOther ProviderActiveStart: March 21, 2025 Serina Ruff MDOther ProviderActiveStart: March 21, 2025 Nathan Gibson MDOther ProviderActiveStart: March 21, 2025 Los Ventura MDOther ProviderActiveStart: March 21, 2025 David Patel , DOOther ProviderActiveStart: March 21, 2025 Jj Muniz MDOther ProviderActiveStart: March 21, 2025 Aldair Leija MDOther ProviderActiveStart: March 21, 2025 Salud Cee , [employer]ER-COther ProviderActiveStart: March 21, 2025 Crissy Smith , APRNOther ProviderActiveStart: March 21, 2025 Dany Schroeder MDOther ProviderActiveStart: March 21, 2025 Hernan Mai MDOther ProviderActiveStart: March 21, 2025 Markel Ledbetter MDOther ProviderActiveStart: March 21, 2025 Chevy Espino , DOOther ProviderActiveStart: March 21, 2025 Vy Ortiz , APRNOther ProviderActiveStart: March 21, 2025 Juice Mackenzie , DOOther ProviderActiveStart: March 21, 2025 Nikolai Melgoza MDOther ProviderActiveStart: March 21, 2025 Goldie Braun , APRNOther ProviderActiveStart: March 21, 2025 Jelena Inman , APRNOther ProviderActiveStart: March 21, 2025 Katiana Barrera MDOther ProviderActiveStart: March 21, 2025 Jagjit Atkinson MDOther ProviderActiveStart: March 21, 2025 Roberto Jaime , DOOther ProviderActiveStart: March 21, 2025 Herman Bella MDOther ProviderActiveStart: March 21, 2025 Nithya Alvarado MDOther ProviderActiveStart: March 21, 2025 Francisca Escudero , APRNOther ProviderActiveStart: March 21, 2025 Nishi Welsh MDOther ProviderActiveStart: March 21, 2025 Earnest Noel MDOther ProviderActiveStart: March 21, 2025 Mason Flanagan MDOther ProviderActiveStart: March 21, 2025 Hill Marmolejo MDOther ProviderActiveStart: March 21, 2025 Maryana Walker , APRNOther ProviderActiveStart: March 21, 2025 Susanne Rodriguez , APRNOther ProviderActiveStart: March 21, 2025 Lexi South , LIANEOther ProviderActiveStart: March 21, 2025 Farhat Almeida MDAttending ProviderActiveStart: March 21, 2025 Team Status: Active Member Role Status Dates Stefan Best MD Primary Care Provider Active Start: March 22, 2025 Farhat Almeida MDAdmit ProviderActiveStart: March 22, 2025 Farhat Almeida MDOther ProviderActiveStart: March 22, 2025 Lily Yanes , RNOther ProviderActiveStart: March 22, 2025 Jacinda Taylor , RNOther ProviderActiveStart: March 22, 2025 Sherrie Yoder , LIANEOther ProviderActiveStart: March 22, 2025 Namrata Marshall , RNOther ProviderActiveStart: March 22, 2025 Selene Taylor , LIANEOther ProviderActiveStart: March 22, 2025 Kalyani Ferrari , LIANEOther ProviderActiveStart: March 22, 2025 Trace Alvarez MDOther ProviderActiveStart: March 22, 2025 Clayton De La Cruz , DOOther ProviderActiveStart: March 22, 2025 Stewart Osorio MDOther ProviderActiveStart: March 22, 2025 Norberto Pires , DOOther ProviderActiveStart: March 22, 2025 Mateo Schaeffer MDOther ProviderActiveStart: March 22, 2025 Maxine Ovalle MDOther ProviderActiveStart: March 22, 2025 David Maher DOOther ProviderActiveStart: March 22, 2025 Mason Rivera MDOther ProviderActiveStart: March 22, 2025 Vandana Urbina , APRNOther ProviderActiveStart: March 22, 2025 Serina Ruff MDOther ProviderActiveStart: March 22, 2025 Nathan Gibson MDOther ProviderActiveStart: March 22, 2025 Los Ventura MDOther ProviderActiveStart: March 22, 2025 David Patel DOOther ProviderActiveStart: March 22, 2025 Jj Muniz MDOther ProviderActiveStart: March 22, 2025 Aldair Leija MDOther ProviderActiveStart: March 22, 2025 Salud Cee [employer]ER-COther ProviderActiveStart: March 22, 2025 Crissy Smith , APRNOther ProviderActiveStart: March 22, 2025 Dany Schroeder MDOther ProviderActiveStart: March 22, 2025 Hernan Mai MDOther ProviderActiveStart: March 22, 2025 Markel Ledbetter MDOther ProviderActiveStart: March 22, 2025 Chevy Espino , DOOther ProviderActiveStart: March 22, 2025 Vy Ortiz , APRNOther ProviderActiveStart: March 22, 2025 Juice Mackenzie , DOOther ProviderActiveStart: March 22, 2025 Nikolai Melgoza MDOther ProviderActiveStart: March 22, 2025 Goldie Braun , APRNOther ProviderActiveStart: March 22, 2025 Jelena Inman , APRNOther ProviderActiveStart: March 22, 2025 Katiana Barrera MDOther ProviderActiveStart: March 22, 2025 Jagjit Atkinson MDOther ProviderActiveStart: March 22, 2025 Roberto Jaime , DOOther ProviderActiveStart: March 22, 2025 Herman Bella MDOther ProviderActiveStart: March 22, 2025 Nithya Alvarado MDOther ProviderActiveStart: March 22, 2025 Francisca Escudero , APRNOther ProviderActiveStart: March 22, 2025 Nishi Welsh MDOther ProviderActiveStart: March 22, 2025 Earnest Noel MDOther ProviderActiveStart: March 22, 2025 Mason Flanagan MDOther ProviderActiveStart: March 22, 2025 Hill Marmolejo MDOther ProviderActiveStart: March 22, 2025 Maryana Walker , APRNOther ProviderActiveStart: March 22, 2025 Susanne Rodriguez , APRNOther ProviderActiveStart: March 22, 2025 Lexi South , RNOther ProviderActiveStart: March 22, 2025 Mindy Reddingmarian , APRNAttending ProviderActiveStart: March 22, 2025 Team Status: Active Member Role Status Dates Stefan Best MD Primary Care Provider Active Start: March 29, 2025 Farhat Almeida MDAdmit ProviderActiveStart: March 29, 2025 Farhat Almeida MDAttending ProviderActiveStart: March 29, 2025 Farhat Almeida MDOther ProviderActiveStart: March 29, 2025 Lily Yanes , RNOther ProviderActiveStart: March 29, 2025 Jacinda Taylor , RNOther ProviderActiveStart: March 29, 2025 Sherrie Yoder , LIANEOther ProviderActiveStart: March 29, 2025 Namrata Marshall , RNOther ProviderActiveStart: March 29, 2025 Selene Taylor , LIANEOther ProviderActiveStart: March 29, 2025 Kalyani Ferrari , LIANEOther ProviderActiveStart: March 29, 2025 Trace Alvarez MDOther ProviderActiveStart: March 29, 2025 Clayton De La Cruz , DOOther ProviderActiveStart: March 29, 2025 Stewart Osorio MDOther ProviderActiveStart: March 29, 2025 Norberto Pires , DOOther ProviderActiveStart: March 29, 2025 Mateo Schaeffer MDOther ProviderActiveStart: March 29, 2025 Maxine Ovalle MDOther ProviderActiveStart: March 29, 2025 David Maher DOOther ProviderActiveStart: March 29, 2025 Mason Rivera MDOther ProviderActiveStart: March 29, 2025 Vandana Urbina , APRNOther ProviderActiveStart: March 29, 2025 Serina Ruff MDOther ProviderActiveStart: March 29, 2025 Nathan Gibson MDOther ProviderActiveStart: March 29, 2025 Los Ventura MDOther ProviderActiveStart: March 29, 2025 David Patel DOOther ProviderActiveStart: March 29, 2025 Jj Muniz MDOther ProviderActiveStart: March 29, 2025 Aldair Leija MDOther ProviderActiveStart: March 29, 2025 Salud Cee , SKEINS YARN EXAMINER-COther ProviderActiveStart: March 29, 2025 Crissy Smith , APRNOther ProviderActiveStart: March 29, 2025 Dany Schroeder MDOther ProviderActiveStart: March 29, 2025 Hernan Mai MDOther ProviderActiveStart: March 29, 2025 Markel Ledbetter MDOther ProviderActiveStart: March 29, 2025 Chevy Espino , DOOther ProviderActiveStart: March 29, 2025 Vy Ortiz , APRNOther ProviderActiveStart: March 29, 2025 Juice Mackenzie , DOOther ProviderActiveStart: March 29, 2025 Nikolai Melgoza MDOther ProviderActiveStart: March 29, 2025 Goldie Braun , APRNOther ProviderActiveStart: March 29, 2025 Jelena Inman , APRNOther ProviderActiveStart: March 29, 2025 Katiana Barrera MDOther ProviderActiveStart: March 29, 2025 Jagjit Atkinson MDOther ProviderActiveStart: March 29, 2025 Roberto Jaime , DOOther ProviderActiveStart: March 29, 2025 Herman Bella MDOther ProviderActiveStart: March 29, 2025 Nithya Alvarado MDOther ProviderActiveStart: March 29, 2025 Francisca Escudero , APRNOther ProviderActiveStart: March 29, 2025 Nishi Welsh MDOther ProviderActiveStart: March 29, 2025 Earnest Noel MDOther ProviderActiveStart: March 29, 2025 Mason Flanagan MDOther ProviderActiveStart: March 29, 2025 Hill Marmolejo MDOther ProviderActiveStart: March 29, 2025 Maryana Walker APRNOther ProviderActiveStart: March 29, 2025 Susanne Rodriguez , APRNOther ProviderActiveStart: March 29, 2025 Lexi South RNOther ProviderActiveStart: March 29, 2025 Team Status: Active Member Role Status Dates Stefan Best MD Primary Care Provider Active Start: April 04, 2025 Gardenia Castellanos CMAAttending ProviderActiveStart: April 04, 2025 Team Status: Inactive Member Role Status Dates Stefan Best MD Primary Care Provider Active Start: April 06, 2025 End: April 06, 2025Da Lozano II, MDAttending ProviderActiveStart: April 06, 2025 End: April 06, 2025 Team Status: Active Member Role Status Celia Best MD Primary Care Provider Active Start: April 07, 2025 Chao Chapman , MDAttending ProviderActiveStart: April 07, 2025 Team Status: Inactive Member Role Status Dates Stefan Best MD Primary Care Provider Active Start: April 07, 2025 End: April 09, 2025Juice Mackenzie , DOAdmit ProviderActiveStart: April 07, 2025 End: April 09, 2025Janelle Crandall RNOther ProviderActiveStart: April 07, 2025 End: April 09, 2025W Favian Cobb DOOther ProviderActiveStart: April 07, 2025 End: April 09, 2025Charlotte Cordon MDOther ProviderActiveStart: April 07, 2025 End: April 09, 2025Mofredis Bae MDOther ProviderActiveStart: April 07, 2025 End: April 09, 2025Angela Braun APRNOther ProviderActiveStart: April 07, 2025 End: April 09, 2025Kandi Villeda MDOther ProviderActiveStart: April 07, 2025 End: April 09TYE Moss-BCOther ProviderActiveStart: April 07, 2025 End: April 09ndcarter Schaeffer MDAttending ProviderActiveStart: April 07, 2025 End: April 09, 2025 Team Status: Active Member Role Status Celia Best MD Primary Care Provider Active Start: April 11, 2025 Robby Light DOAttending ProviderActiveStart: April 11, 2025 Team Status: Inactive Member Role Status Celia Light DO Attending Provider Active Sta rt: April 11, 2025 End: April 11, 2025 Team Status: Active Member Role/Relationship Status Dates Stefan Best MD Primary Care Provider Active Start: February 07, 2025 Leroyjudith Ashby , MDAttending ProviderActiveStart: February 07, 2025 Team Status: Inactive Member Role/Relationship Status Dates Stefan Best MD Primary Care Provider Active Start: February 08, 2025 End: February 08bdul Isma , MDAttending ProviderActiveStart: February 08, 2025 End: February 08, 2025 Team Status: Inactive Member Role/Relationship Status Dates Stefan Best MD Primary Care Provider Active Start: March 03, 2025 End: March 03, 2025Da Lozano II MDAttending ProviderActiveStart: March 03, 2025 End: March 03, 2025 Team Status: Inactive Member Role/Relationship Status Dates Stefan Best MD Primary Care Provider Active Start: March 09, 2025 End: March 09, 2025Da Lozano II, MDAttending ProviderActiveStart: March 09, 2025 End: March 09, 2025 Team Status: Inactive Member Role/Relationship Status Dates Stefan Best MD Primary Care Provider Active Start: March 09, 2025 End: March 09, 2025Da Lozano II, MDAttending ProviderActiveStart: March 09, 2025 End: March 09, 2025 Team Status: Active Member Role/Relationship Status Dates Stefan Best MD Primary Care Provider Active Start: March 09, 2025 Da Lozano II, MDAttending ProviderActiveStart: March 09, 2025 Team Status: Inactive Member Role/Relationship Status Dates Stefan Best MD Primary Care Provider Active Start: March 11, 2025 End: March 11, 2025Da Lozano II, MDAttending ProviderActiveStart: March 11, 2025 End: March 11, 2025 Team Status: Active Member Role/Relationship Status Dates Stefan Best MD Primary Care Provider Active Start: March 21, 2025 Da Lozano II, MDOther ProviderActiveStart: March 21, 2025 Earnest Ferrari MDOther ProviderActiveStart: March 21, 2025 Lily Yanes RNOther ProviderActiveStart: March 21, 2025 Jacinda Taylor , LIANEOther ProviderActiveStart: March 21, 2025 Sherrie Yoder , LIANEOther ProviderActiveStart: March 21, 2025 Namrata Marshall , RNOther ProviderActiveStart: March 21, 2025 Selene Taylor , RNOther ProviderActiveStart: March 21, 2025 Kalyani Ferrari , LIANEOther ProviderActiveStart: March 21, 2025 Trace Alvarez MDOther ProviderActiveStart: March 21, 2025 Clayton De La Cruz , DOOther ProviderActiveStart: March 21, 2025 Stewart Osorio MDOther ProviderActiveStart: March 21, 2025 Norberto Pires , DOOther ProviderActiveStart: March 21, 2025 Mateo Schaeffer MDOther ProviderActiveStart: March 21, 2025 Maxine Ovalle MDOther ProviderActiveStart: March 21, 2025 David Maher DOOther ProviderActiveStart: March 21, 2025 Mason Rivera MDOther ProviderActiveStart: March 21, 2025 Vandana Urbina , APRNOther ProviderActiveStart: March 21, 2025 Serina Ruff MDOther ProviderActiveStart: March 21, 2025 Nathan Gibson MDOther ProviderActiveStart: March 21, 2025 Los Ventura MDOther ProviderActiveStart: March 21, 2025 David Patel DOOther ProviderActiveStart: March 21, 2025 Jj Muniz MDOther ProviderActiveStart: March 21, 2025 Aldair Leija MDOther ProviderActiveStart: March 21, 2025 Salud Cee , SKEINS YARN EXAMINER-COther ProviderActiveStart: March 21, 2025 Crissy Smith , APRNOther ProviderActiveStart: March 21, 2025 Dany Schroeder MDOther ProviderActiveStart: March 21, 2025 Hernan Mai MDOther ProviderActiveStart: March 21, 2025 Markel Ledbetter MDOther ProviderActiveStart: March 21, 2025 Chevy Espino , DOOther ProviderActiveStart: March 21, 2025 Vy Obika , APRNOther ProviderActiveStart: March 21, 2025 Juice Mackenzie , DOOther ProviderActiveStart: March 21, 2025 Nikolai Melgoza MDOther ProviderActiveStart: March 21, 2025 Goldie Braun , APRNOther ProviderActiveStart: March 21, 2025 Jelena Inman , APRNOther ProviderActiveStart: March 21, 2025 Katiana Barrera MDOther ProviderActiveStart: March 21, 2025 Jagjit Atkinson MDOther ProviderActiveStart: March 21, 2025 Roberto Jaime , DOOther ProviderActiveStart: March 21, 2025 Herman Bella MDOther ProviderActiveStart: March 21, 2025 Nithya Alvarado MDOther ProviderActiveStart: March 21, 2025 Francisca Escudero , APRNOther ProviderActiveStart: March 21, 2025 Nishi Welsh MDOther ProviderActiveStart: March 21, 2025 Earnest Noel MDOther ProviderActiveStart: March 21, 2025 Mason Flanagan MDOther ProviderActiveStart: March 21, 2025 Hill Marmolejo MDOther ProviderActiveStart: March 21, 2025 Maryana Walker , APRNOther ProviderActiveStart: March 21, 2025 Susanne Rodriguez , APRNOther ProviderActiveStart: March 21, 2025 Lexi South RNOther ProviderActiveStart: March 21, 2025 Farhat Almeida MDAttending ProviderActiveStart: March 21, 2025 Team Status: Active Member Role/Relationship Status Dates Stefan Best MD Primary Care Provider Active Start: March 22, 2025 Farhat Almeida MDAdmit ProviderActiveStart: March 22, 2025 Farhat Almeida MDOther ProviderActiveStart: March 22, 2025 Lily Yanes , LIANEOther ProviderActiveStart: March 22, 2025 Jacinda Taylor , LIANEOther ProviderActiveStart: March 22, 2025 Sherrie Yoder , LIANEOther ProviderActiveStart: March 22, 2025 Namrata Marshall RNOther ProviderActiveStart: March 22, 2025 Selene Taylor RNOther ProviderActiveStart: March 22, 2025 Kalyani Ferrari , LIANEOther ProviderActiveStart: March 22, 2025 Trace Alvarez MDOther ProviderActiveStart: March 22, 2025 Clayton De La Cruz , DOOther ProviderActiveStart: March 22, 2025 Stewart Osorio MDOther ProviderActiveStart: March 22, 2025 Norberto Pires , DOOther ProviderActiveStart: March 22, 2025 aMteo Schaeffer MDOther ProviderActiveStart: March 22, 2025 Maxine Ovalle MDOther ProviderActiveStart: March 22, 2025 David Maher , DOOther ProviderActiveStart: March 22, 2025 Mason Rivera MDOther ProviderActiveStart: March 22, 2025 Vandana Urbina , APRNOther ProviderActiveStart: March 22, 2025 Serina Ruff MDOther ProviderActiveStart: March 22, 2025 Nathan Gibson MDOther ProviderActiveStart: March 22, 2025 Los Ventura MDOther ProviderActiveStart: March 22, 2025 David Patel , DOOther ProviderActiveStart: March 22, 2025 Jj Muniz MDOther ProviderActiveStart: March 22, 2025 Aldair Leija MDOther ProviderActiveStart: March 22, 2025 Salud Cee , SKEINS YARN EXAMINER-COther ProviderActiveStart: March 22, 2025 Crissy Smith , APRNOther ProviderActiveStart: March 22, 2025 Dany Schroeder MDOther ProviderActiveStart: March 22, 2025 Hernan Mai MDOther ProviderActiveStart: March 22, 2025 Markel Ledbetter MDOther ProviderActiveStart: March 22, 2025 Chevy Espino , DOOther ProviderActiveStart: March 22, 2025 Vy Ortiz , APRNOther ProviderActiveStart: March 22, 2025 Juice Mackenzie DOOther ProviderActiveStart: March 22, 2025 Nikolai Melgoza MDOther ProviderActiveStart: March 22, 2025 Goldie Braun , APRNOther ProviderActiveStart: March 22, 2025 Jelena Inman , APRNOther ProviderActiveStart: March 22, 2025 Katiana Barrera MDOther ProviderActiveStart: March 22, 2025 Jagjit Atkinson MDOther ProviderActiveStart: March 22, 2025 Roberto Jaime , DOOther ProviderActiveStart: March 22, 2025 Herman Bella MDOther ProviderActiveStart: March 22, 2025 Nithya Alvarado MDOther ProviderActiveStart: March 22, 2025 Francisca Escudero , APRNOther ProviderActiveStart: March 22, 2025 Nishi Welsh MDOther ProviderActiveStart: March 22, 2025 Earnest Noel MDOther ProviderActiveStart: March 22, 2025 Mason Flanagan MDOther ProviderActiveStart: March 22, 2025 Hill Marmolejo MDOther ProviderActiveStart: March 22, 2025 Maryana Walker , APRNOther ProviderActiveStart: March 22, 2025 Susanne Rodriguez APRNOther ProviderActiveStart: March 22, 2025 Lexi South RNOther ProviderActiveStart: March 22, 2025 Mindy De Jesus APRNAttending ProviderActiveStart: March 22, 2025 Team Status: Active Member Role/Relationship Status Dates Stefan Best MD Primary Care Provider Active Start: March 29, 2025 Farhat Almeida MDAdmit ProviderActiveStart: March 29, 2025 Farhat Almeida MDAttending ProviderActiveStart: March 29, 2025 Farhat Almeida MDOther ProviderActiveStart: March 29, 2025 Lily Yanes , LIANEOther ProviderActiveStart: March 29, 2025 Jacinda Taylor , LIANEOther ProviderActiveStart: March 29, 2025 Sherrie Yoder , LIANEOther ProviderActiveStart: March 29, 2025 Namrata Marshall RNOther ProviderActiveStart: March 29, 2025 Selene Taylor RNOther ProviderActiveStart: March 29, 2025 Kalyani Ferrari RNOther ProviderActiveStart: March 29, 2025 Trace Alvarez MDOther ProviderActiveStart: March 29, 2025 Clayton De La Cruz , DOOther ProviderActiveStart: March 29, 2025 Stewart Osorio MDOther ProviderActiveStart: March 29, 2025 Norberto Pires , DOOther ProviderActiveStart: March 29, 2025 Mateo Schaeffer MDOther ProviderActiveStart: March 29, 2025 Maxine Ovalle MDOther ProviderActiveStart: March 29, 2025 David Maher , DOOther ProviderActiveStart: March 29, 2025 Mason Rivera MDOther ProviderActiveStart: March 29, 2025 Vandana Urbina , APRNOther ProviderActiveStart: March 29, 2025 Serina Ruff MDOther ProviderActiveStart: March 29, 2025 Nathan Gibson MDOther ProviderActiveStart: March 29, 2025 Los Ventura MDOther ProviderActiveStart: March 29, 2025 David Patel , DOOther ProviderActiveStart: March 29, 2025 Jj Muniz MDOther ProviderActiveStart: March 29, 2025 Aldair Leija MDOther ProviderActiveStart: March 29, 2025 Salud Cee , SKEINS YARN EXAMINER-COther ProviderActiveStart: March 29, 2025 Crissy Smith , APRNOther ProviderActiveStart: March 29, 2025 Dany Schroeder MDOther ProviderActiveStart: March 29, 2025 Hernan Mai MDOther ProviderActiveStart: March 29, 2025 Markel Ledbetter MDOther ProviderActiveStart: March 29, 2025 Chevy Espino , DOOther ProviderActiveStart: March 29, 2025 Vy Ortiz , APRNOther ProviderActiveStart: March 29, 2025 Juice Mackenzie DOOther ProviderActiveStart: March 29, 2025 Nikolai Melgoza MDOther ProviderActiveStart: March 29, 2025 Goldie Braun , APRNOther ProviderActiveStart: March 29, 2025 Jelena Inman , APRNOther ProviderActiveStart: March 29, 2025 Katiana Barrera MDOther ProviderActiveStart: March 29, 2025 Jagjit Atkinson MDOther ProviderActiveStart: March 29, 2025 Roberto Jaime , DOOther ProviderActiveStart: March 29, 2025 Herman Bella MDOther ProviderActiveStart: March 29, 2025 Nithya Alvarado MDOther ProviderActiveStart: March 29, 2025 Francisca Escudero , APRNOther ProviderActiveStart: March 29, 2025 Nishi Welsh MDOther ProviderActiveStart: March 29, 2025 Earnest Noel MDOther ProviderActiveStart: March 29, 2025 Mason Flanagan MDOther ProviderActiveStart: March 29, 2025 Hill Marmolejo MDOther ProviderActiveStart: March 29, 2025 Maryana Walker , APRNOther ProviderActiveStart: March 29, 2025 Susanne Rodriguez , APRNOther ProviderActiveStart: March 29, 2025 Lexi South RNOther ProviderActiveStart: March 29, 2025 Team Status: Active Member Role/Relationship Status Dates Stefan Best MD Primary Care Provider Active Start: April 04, 2025 Gardenia Castellanos CMAAttending ProviderActiveStart: April 04, 2025 Team Status: Inactive Member Role/Relationship Status Dates Stefan Best MD Primary Care Provider Active Start: April 06, 2025 End: April 06, 2025Da Lozano II, MDAttending ProviderActiveStart: April 06, 2025 End: April 06, 2025 Team Status: Active Member Role/Relationship Status Dates Stefan Best MD Primary Care Provider Active Start: April 07, 2025 Chao Chapman MDAttending ProviderActiveStart: April 07, 2025 Team Status: Inactive Member Role/Relationship Status Dates Stefan Best MD Primary Care Provider Active Start: April 07, 2025 End: April 09, 2025Juice Mackenzie , DOAdmit ProviderActiveStart: April 07, 2025 End: April 09, 2025Janelle Crandall RNOther ProviderActiveStart: April 07, 2025 End: April 09, 2025W Favian Cobb DOOther ProviderActiveStart: April 07, 2025 End: April 09, 2025Charlotte Cordon MDOther ProviderActiveStart: April 07, 2025 End: April 09, 2025Mofredis Bae MDOther ProviderActiveStart: April 07, 2025 End: April 09, 2025Angela Braun APRNOther ProviderActiveStart: April 07, 2025 End: April 09, 2025Gedash Villeda MDOther ProviderActiveStart: April 07, 2025 End: April 09aronestor Walker DYE BOX OPERATOR-BCOther ProviderActiveStart: April 07, 2025 End: April 09ndcarter Schaeffer MDAttending ProviderActiveStart: April 07, 2025 End: April 09, 2025 Team Status: Active Member Role/Relationship Status Dates Stefan Best MD Primary Care Provider Active Start: April 11, 2025 Robby Light DOAttlenny ProviderActiveStart: April 11, 2025 Team Status: Inactive Member Role/Relationship Status Dates Robby Light DO Attending Provider Active Sta rt: April 11, 2025 End: April 11, 2025 Team Status: Active Member Role/Relationship Status Dates Leroy Ashby MD Attending Provider Active Start : April 12, 2025 Team Status: Active Member Role/Relationship Status Dates Trace Alvarez MD Attending Provider Active Sta rt: April 13, 2025 Team Status: Active Member Role/Relationship Status Dates Trace Alvarez MD Attending Provider Active Sta rt: April 14, 2025 Team Status: Active Member Role/Relationship Status Dates Stefan Best MD Primary Care Provider Active Start: April 15, 2025 Kirstin Hoyt ProviderActiveStart: April 15, 2025 Team Status: Active Member Role/Relationship Status Dates Stefan Best MD Primary Care Provider Active Start: April 18, 2025 Gardenia Castellanos CMAAttending ProviderActiveStart: April 18, 2025 Team Status: Active Member Role/Relationship Status Dates Stefan Best MD Primary Care Provider Active Start: April 18, 2025 Stefan Best MDAttending ProviderActiveStart: April 18, 2025 Team Status: Active Member Role/Relationship Status Dates Stefan Best MD Primary Care Provider Active Start: May 02, 2025 Dominick Razo DOAttending ProviderActiveStart: May 02, 2025 Team Status: Inactive Member Role/Relationship Status Dates Nishi Welsh MD Attending Provider Active Star t: May 03, 2025 End: May 03, 2025 Team Status: Active Member Role/Relationship Status Dates Stefan Best MD Primary Care Provider Active Start: May 03, 2025 Nishi Welsh MDAttending ProviderActiveStart: May 03, 2025 Team MemberRelationshipSpecialtyStart DateEnd Date Stefan Best MD [address] [place] [address] PCP - Generalmily Klnndbqg13/27/25Team MemberRelationshipSpecialtyStart Date End Date Stefan Best MD [address] [place] [address] PCP - [facility] Zooacqfw73/27/25Team MemberRelationshipSpecialtyStart Date End Date Stefan Best MD [address] [place] [id number] [facility] - [facility] S[facility]25 Goals (unrecognized section and content) Goals may [...] FOR VISIT (unrecogniz ed section and content) ReasonCommentsFollow-xz8oAdegcueqyKnchynorj / ProceduresReferred By Contact Referred To ContactRadiology Diagnoses CAD, multiple vessel S/P CABG x 3 Ischemic cardiomyopathy Occlusion and stenosis of right carotid artery Shortness of breath Procedures Nuclear Stress Test CHG MYOCARDIAL SPECT MULTIPLE STUDIES Shahrzad Morales MD [address] [facility], [place] [address] Referral IDStatusRe[facility] DateExpiration DateVisits RequestedVisits [id number] [facility] patientSpecialtyDiagnoses / ProceduresReferred By ContactReferred To Contact Cardiology Diagnoses Occlusion and stenosis of right carotid artery Procedures Follow Up In Cardiology Shahrzad Morales MD Smith, Donna K, 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 [address] [facility] [address], [address] [address] Phone: tel: fax: Referral IDStatusReasonart DateExpiration DateVisits RequestedVisits [id number] FOR RECORDS PERTAINING TO PATIENTS WHO ARE [...] ON THE PRIMARY CLINICAL RECORDS. [facility] [employer] [facility]. provides no warranty or guarantee of the accuracy or completeness of information in this document.
--- OUTSIDE RECORDS SUMMARY | 2025-05-21 10:35 | XMS_ITS | Encounter Summary ---
Author Organization [facility] Address [id number] [place] [address] Care Team Providers Care Auto Glass Worker Name Role Phone Olivia Cazares MD Primary Care Provider [phone] Encounter Details DateTypeDepartmentCare Team (Latest Contact Info)Xhtckqdkrij96/07/2025[facility]phone [facility] [address] [phone] Asya Silver MA Social History Tobacco UseTypesPacks/DayYears UsedDateSmoking Tobacco: NeverSmokeless Tobacco: NeverAlcohol UseStandard Drinks/WeekCommentsNever0 (1 standard drink = 0.6 oz pure alcohol)PHQ-2AnswerDate RecordedTotal [id number] RecordedQ1: How often do you have a [...] a part of a household?No05/09/2025hildcareAnswerDate RecordedChildcareUnknown 12/21/2018EmploymentAnswerDate VwldhjesBhnqiizxmkLdehnko87/10/2019Hunger ScreeningAnswerDate RecordedWithin the past 12 months we worried whether our food would run out before we got money to buy more.Never True05/09/2025Within the past 12 months the food we bought just didn't last and we didn't have money to get more.Never True05/09/2025CommentsNoSex and Gender Information ValueDate RecordedSex Assigned at BirthNot on fileLegal NsbXaqimb08/26/2025 3:17 PM EDTGender IdentityNot on fileSexual OrientationNot on filedocumented as of this encounter Miscellaneous Notes * Telephone Encounter - Asya Silver MA - 05/20/2025 8:47 AM EST ----- Message from SHAWANDA Francois sent at 05/19/2025 9:10 AM EST ----- She is going to [facility] [place]. * Telephone Encounter - Asya Silver MA - 05/20/2025 8:47 AM EST Attempted to reach facility was on hold for 20 ,minutes. Appointment scheduled should show on discharge paperwork. documented in this encounter Plan of Treatment DateTypeDepartmentCare Team (Latest Contact Info)Poxwlothbdq42/25/2025 12:00 PM ESTOffice Visit [facility] [address] [facility] [address] [place] [id number] Elli Ortiz APRN-CERTIFIED MEDICAL RECORDS CODER [address] [facility] [place] [address] documented as of this encounter Goals GoalPatient Goal TypeAssociated ProblemsRecent ProgressPatient-Stated?Author Home with spouse and home care services Eden Schilling Note: Evaluation of progress towards goal: Home with spouse and [facility] services documented as of this encounter Visit Diagnoses Not on filedocumented in this encounter Additional Health Concerns AssessmentNoted TimePHQ-9 Depression Total Score: 4:55 PM EDT documented as of this encounter Care Teams Team MemberRelationshipSpecialtyStart DateEnd Date Olivia Cazares MD [facility] [place] [address] PCP - GeneralFamily Dvpnexbs71/27/25documented as of this encounter
--- OUTSIDE RECORDS SUMMARY | 2025-05-21 10:35 | XMS_ITS | Encounter Summary ---
Author Organization Web and Ranks tem Address [id number] [address] [place] [address] Care Team Providers Care Round Up Ring Hand Name Role Phone Olivia Cazares MD Primary Care Provider Encounter Details DateTypeDepartmentCare Team (Latest Contact Info)Pmqovcqonph69/27/2025Travel Social History Tobacco UseTypesPacks/DayYears UsedDateSmoking Tobacco: NeverSmokeless Tobacco: NeverAlcohol UseStandard Drinks/WeekCommentsNever0 (1 standard drink = 0.6 oz pure alcohol)PHQ-2AnswerDate RecordedTotal Urhzn906UDIT-CAnswerDate RecordedQ1: How often do you have a [...] a part of a household?No05/09/2025hildcareAnswerDate RecordedChildcareUnknown 12/21/2018EmploymentAnswerDate NwwkxvdaPokgxpnswyEtgbnym84/10/2019Hunger ScreeningAnswerDate RecordedWithin the past 12 months we worried whether our food would run out before we got money to buy more.Never True05/09/2025Within the past 12 months the food we bought just didn't last and we didn't have money to get more.Never True05/09/2025CommentsNoSex and Gender Information ValueDate RecordedSex Assigned at BirthNot on fileLegal LxgFkswvb96/26/2025 3:17 PM EDTGender IdentityNot on fileSexual OrientationNot on filedocumented as of this encounter Functional Status * AUDIT-C ScoreAnswerDate of PkdsidrizqCbvemp181/27/2025 4:55 PM Sugar Erickson RN * QuestionAnswerDate [...] Erickson RN documented as of this encounter Plan of Treatment DateTypeDepartmentCare Team (Latest Contact Info)Wbjvhaeitba88/25/2025 12:00 PM ESTOffice Visit [facility] [address] [place] [id number] Elli Ortiz, CATHIE-CRUSHER [address] [facility] [address] [facility] [address] documented as of this encounter Goals GoalPatient Goal TypeAssociated ProblemsRecent ProgressPatient-Stated?Author Home with spouse and home care services Eden Schilling Note: Evaluation of progress towards goal: Home with spouse and [facility] services documented as of this encounter Visit Diagnoses Not on filedocumented in this encounter Additional Health Concerns AssessmentNoted TimePHQ-9 Depression Total Score: 4:55 PM EDT documented as of this encounter Care Teams Team MemberRelationshipSpecialtyStart DateEnd Date Olivia Cazares MD [facility] [place] [address] PCP - GeneralFamily Hupemvdj10/27/25documented as of this encounter
--- OUTSIDE RECORDS SUMMARY | 2025-05-21 10:35 | XMS_ITS | Encounter Summary ---
Author Organization [facility] tem Address [id number] [address] [place] [address] Care Team Providers Care Applications Consultant Name Role Phone Olivia Cazares MD Primary Care Provider [phone] Encounter Details DateTypeDepartmentCare Team (Latest Contact Info)Oriuaysoqvj16/07/2025Telephone [facility] [address] [phone] Rohini Manley, PHYSICIAN EXECUTIVE-IT SUPPORT MANAGER [address] [address] Social History Tobacco UseTypesPacks/DayYears UsedDateSmoking Tobacco: NeverSmokeless Tobacco: NeverAlcohol UseStandard Drinks/WeekCommentsNever0 (1 standard drink = 0.6 oz pure alcohol)PHQ-2AnswerDate RecordedTotal Duiho124UDIT-CAnswerDate RecordedQ1: How often do you have a [...] a part of a household?No05/09/2025hildcareAnswerDate RecordedChildcareUnknown 12/21/2018EmploymentAnswerDate VrnghbabVkkahzpjiyMmkklnp82/10/2019Hunger ScreeningAnswerDate RecordedWithin the past 12 months we worried whether our food would run out before we got money to buy more.Never True05/09/2025Within the past 12 months the food we bought just didn't last and we didn't have money to get more.Never True05/09/2025CommentsNoSex and Gender Information ValueDate RecordedSex Assigned at BirthNot on fileLegal PcsTaffga33/26/2025 3:17 PM EDTGender IdentityNot on fileSexual OrientationNot on filedocumented as of this encounter Miscellaneous Notes * Telephone Encounter - SHAWANDA Del Angel - 05/20/2025 12:29 PM EST Please schedule apt with any physician (pt was seen by Dr Couch, Dr Mosqueda, Dr Mcgee, and Dr Holcomb while inpatient) in 2-3 months with PFTs, thank you! documented in this encounter Plan of Treatment DateTypeDepartmentCare Team (Latest Contact Info)Nyxtpkkyksp72/25/2025 12:00 PM ESTOffice Visit [facility] [address] [facility] [address] [place] [address] Elli Ortiz APRN-IT SUPPORT MANAGER [address] [facility] [address] [place] [address] documented as of this encounter Goals GoalPatient Goal TypeAssociated ProblemsRecent ProgressPatient-Stated?Author Home with spouse and home care services Eden Schilling Note: Evaluation of progress towards goal: Home with spouse and [facility] services documented as of this encounter Visit Diagnoses Not on filedocumented in this encounter Additional Health Concerns AssessmentNoted TimePHQ-9 Depression Total Score: 4:55 PM EDT documented as of this encounter Care Teams Team MemberRelationshipSpecialtyStart DateEnd Date Olivia Cazares MD [address] [place] [address] PCP - GeneralFamily Zjiuikwn42/27/25documented as of this encounter
[2025-05-21 10:49] LABS: Hematocrit 30.0 % (36.0-48.0); Hemoglobin 9.0 g/dL (12.0-16.0); Immature Granulocytes Abs Auto 0.03 10^3/uL (0.00-0.03); Immature Granulocytes Pct Auto 0.4 % (0.0-0.5); Lymphocytes Absolute Auto 1.7 10^3/uL (1.2-3.8); Mean Corpuscular HGB Conc 30.0 g/dL (29.9-35.2); Mean Corpuscular Hemoglobin 30.5 pg (26.7-34.0); Mean Corpuscular Volume 101.7 fL (81.0-99.0); Platelet Count 224 10^3/uL (150-450); Red Blood Count 2.95 10^6/uL (4.20-5.40); White Blood Count 7.8 10^3/uL (4.0-11.0)
--- NOTE | 2025-05-21 10:52 | PC.NURSE ---
pt arrived to ER with midline in place in right upper arm. good blood return, flushes well. dressing C/D/I
[2025-05-21 11:10] LABS: Alanine Aminotransferase 13 U/L (14-59); Albumin Globulin Ratio 0.7; Albumin Level 2.7 g/dL (3.4-5.0); Alkaline Phosphatase 68 U/L (46-116); Anion Gap 7.6; Aspartate Amino Transferase 11 U/L (15-37); Blood Urea Nitrogen 51.0 mg/dL (7.0-18.0); Calcium 9.3 mg/dL (8.5-10.1); Carbon Dioxide 37.3 mmol/L (21.0-32.0); Chloride 95 mmol/L (98-107); Estimated GFR (African America 31 (>=60 mL/min/1.73m^2); Estimated GFR (Non-African Ame 26 (>=60 mL/min/1.73m^2); Globulin 3.9 g/dL; Glucose 246 mg/dL (74-106); Potassium 3.9 mmol/L (3.5-5.1); Sodium 136 mmol/L (136-145); Total Protein 6.6 g/dL (6.4-8.2)
[2025-05-21 11:12] LABS: NT Pro B Type Natriuretic Pept 4560.0 pg/mL (<=1800.0)
--- NOTE | 2025-05-21 11:56 | ED.GENADUL1 ---
HPI HPI - General Adult General Chief complaint: Urogenital-Female Stated complaint: POST OP ISSUES Time Seen by Provider: 05/21/25 10:01 Mode of arrival: ambulance History of Present Illness HPI narrative: Patient is a 79-year-old female presenting to the emergency department for evaluation of blood in her nephrostomy tube. The patient presents from the [facility]. She was recently discharged from [facility] for pyelonephritis, ureteral stent removal, and nephrostomy tube placement. The patient has been at the [facility] for the last few days. However, today, the nursing staff noticed blood in her left nephrostomy tube and conveyed to her to the ED for evaluation. On arrival, there is hermann blood in the nephrostomy tube. However, the patient is otherwise asymptomatic. She denies any abdominal or flank pain. She has no fevers or chills. No nausea or vomiting. No chest pain or shortness of breath. She is on Plavix, but not anticoagulation. Related Data Home Medications ?Medication ?Instructions ?Recorded ?Confirmed allopurinol 300 mg tablet 300 mg PO DAILY 08/30/23 05/02/25 aspirin 81 mg tablet,delayed 81 mg PO DAILY 08/30/23 05/02/25 release cholecalciferol (vitamin D3) 125 125 mcg PO .every other day 08/30/23 05/02/25 mcg (5,000 unit) tablet clopidogrel 75 mg tablet 75 mg PO DAILY 08/30/23 05/02/25 furosemide 40 mg tablet 40 mg PO QAM 08/30/23 05/02/25 pantoprazole 20 mg tablet,delayed 20 mg PO .qd 04/11/25 05/02/25 release acetaminophen 500 mg tablet 1,000 mg PO Q8H PRN fever or pain 05/02/25 05/02/25 atorvastatin 20 mg tablet 20 mg PO BEDTIME 05/02/25 05/02/25 gabapentin 100 mg capsule 100 mg PO BEDTIME 05/02/25 05/02/25 insulin aspart U-100 100 unit/mL 3 - 15 unit subcut ACHS 05/02/25 05/02/25 (3 mL) subcutaneous pen (Novolog FlexPen U-100 Insulin aspart) insulin glargine-yfgn 100 unit/mL 25 unit subcut QPM 05/02/25 05/02/25 (3 mL) subcutaneous pen ipratropium 0.5 mg-albuterol 3 mg 3 ml inhalation Q6H PRN shortness 05/02/25 05/02/25 (2.5 mg base)/3 mL nebulization of breath or wheezing soln loperamide 2 mg capsule 2 mg PO Q6H PRN loose stool 05/02/25 05/02/25 (Anti-Diarrheal (loperamide)) Previous Rx's ?Medication ?Instructions ?Recorded carvedilol 3.125 mg tablet 3.125 mg PO BID #0 tabs 04/15/25 cefuroxime axetil 250 mg tablet 250 mg PO BID 10 days #20 tabs 04/15/25 pvlrqzwg-gjmzjfd-zykxckb 24 31 g PO Q15M PRN Hypoglycemia #0 04/15/25 gram/31 gram oral gel grams (Insta-Glucose (with dextrin)) glucagon 1 mg solution for 1 mg IV Q15M PRN Hypoglycemia #0 ea 04/15/25 injection (Glucagon Emergency Kit) Allergies Allergy/AdvReac Type Severity Reaction Status Date / Time No Known Drug Allergies Allergy Verified 04/07/25 13:32 Opioid HPI Opioid Management Most Recent Opioid Data: Last Pain Scale 0 05/06/25, 17:52 Last Pain Intensity 0 05/06/25, 13:36 Last ORT Total Score 0 05/02/25, 13:44 Last ORT Risk Category Low Risk 05/02/25, 13:44 Review of Systems ROS Status of ROS 10 or more systems reviewed and unremarkable except as noted in history and below [facility] Medical History (Updated 05/21/25 @ 12:46 by Robby Light DO) CHF (congestive heart failure) ?I50.9 - Heart failure, unspecified (ICD-10) Gout ?M10.9 - Gout, unspecified (ICD-10) Peripheral arterial disease ?I73.9 - Peripheral vascular disease, unspecified (ICD-10) Stage 3b chronic kidney disease (CKD) ?N18.32 - Chronic kidney disease, stage 3b (ICD-10) HTN (hypertension) ?I10 - Essential (primary) hypertension (ICD-10) Surgical History S/P hip replacement ?Z96.649 - Presence of unspecified artificial hip joint (ICD-10) History of aortic bifurcation bypass graft ?Z95.828 - Presence of other vascular implants and grafts (ICD-10) S/P triple vessel bypass ?Z95.1 - Presence of aortocoronary bypass graft (ICD-10) History of 3 sections ?Z98.891 - History of uterine scar from previous surgery (ICD-10) Family History Brother Family history of cancer Mother Family history of hypertension Father Family history of myocardial infarction Other Family history of CHF (congestive heart failure) Family history of diabetes mellitus Social History Within the past year, how often did you have a drink containing alcohol: never Score interpretation: A score less than 3 is consistent with normal alcohol consumption. Smoking status: Former smoker Non-prescribed substance use: denies use Previous occupational history: disabled Highest level of school completed/degree received: high school graduate Are you now , , , , never or living with a partner: In a typical week, how many times do you talk on the telephone with family, friends, or neighbors: 3 or more times per week How often do you get together with friends or relatives: 3 or more times per week How often do you attend restorationist or jewish services: 4 or more times per year Little interest or pleasure in doing things: not at all Feeling down, depressed, or hopeless: not at all Feel stressed/tense/nervous/anxious/difficulty sleeping: not at all Do you think of yourself as: straight/heterosexual Gender Identity: female Exam Narrative Exam Narrative: CONSTITUTIONAL: Well-appearing, answering questions and following commands appropriately SKIN: Was warm and dry. EYES: Sclerae white. EARS, NOSE, THROAT: Moist oral mucosa. RESPIRATORY: Clear to auscultation bilaterally, no wheezes, crackles, or stridor, no use of accessory muscles CARDIOVASCULAR: Normal rate and regular rhythm. There is no S3, S4, murmur, rub. GASTROINTESTINAL: Abdomen is soft, nontender, nondistended. No Wilver tenderness or guarding. The left nephrostomy tube is in place without evidence of infection such as surrounding erythema or induration. There is hermann blood in the nephrostomy tube. MUSCULOSKELETAL: No peripheral edema. NEUROLOGIC: Patient is awake and alert. Facies were symmetrical. Constitutional Vital Signs, click to edit/add: Last Vital Signs Temp 97.9 F 05/21/25 10:04 Pulse 69 05/21/25 12:50 Resp 15 05/21/25 12:50 BP 139/77 05/21/25 12:36 Pulse Ox 100 05/21/25 12:36 O2 Del Method Nasal Cannula 05/21/25 10:04 O2 Flow Rate 2 05/21/25 10:04 Course Vital Signs Vital signs: Vital Signs Blood Pressure 130/61 05/21/25 10:03 Temperature 97.9 F 05/21/25 10:04 Pulse Rate 69 05/21/25 12:50 Respiratory Rate 15 05/21/25 12:50 Blood Pressure 139/77 05/21/25 12:36 Pulse Oximetry 100 05/21/25 12:36 Oxygen Delivery Method Nasal Cannula 05/21/25 10:04 Oxygen Delivery Flow Rate 2 05/21/25 10:04 Medical Decision Making [facility] Narrative Medical decision making narrative: Patient is 79-year-old female, history significant for recent left nephrostomy tube placement at [facility], presenting to the emergency department from the [facility] for blood in her nephrostomy tube starting this morning. Her vital signs on arrival were within normal limits. She is afebrile and hemodynamically stable. Her examination as noted above. At this time, IV was established and laboratory studies were obtained to evaluate her renal function and evaluate for UTI. Unclear if the [facility] was using the Hep-Lock's to prevent clotting, however we were easily able to flush the nephrostomy tube with 20 cc of normal saline. A large clot was removed and the nephrostomy tube is now draining properly. Laboratory studies were unchanged from her baseline. Her BNP is mildly elevated, but actually improved from her baseline. Troponin nonelevated. Her renal function is at her baseline with evidence of SUSAN. No significant electrolyte or metabolic derangements that are changed from baseline. She is anemic but at her baseline. No leukocytosis. Urinalysis was positive, however she has no UTI symptoms or signs of infection/leukocytosis/fevers/sepsis. Therefore, I believe is appropriate to wait for a urine culture to result before treating her. Chest x-ray independently reviewed/interpreted by myself demonstrated no acute cardiopulmonary process. There is a resolving pleural effusion. 12 Lead EKG: Normal sinus rhythm at a rate of 74. There are global wide-complex QRS complexes consistent with intraventricular conduction delay. ST elevation in leads V1, V2, V3, aVR, and lead III. There are ST depressions in leads V4, V5, V6, aVL, I, and II. These changes are unchanged from her recent EKG from April 2025. Final impression: normal sinus rhythm without evidence of acute myocardial ischemia. I did consult and discuss the patient with on-call urologist at [facility], Dr. Winter. He states as long as the nephrostomy tube is able to be flushed and the rest of her workup is normal, she should be stable for discharge and outpatient follow-up in their clinic. I do believe the patient is stable for discharge. They were instructed to follow up with urology for further care. Return precautions were given including any new or worsening symptoms. Patient understands and agrees to the plan. FINAL IMPRESSION: #Acute nephrostomy tube blockage, resolved DISPOSITION: Discharged to [facility] CONDITION: Good Medical Records Medical records reviewed: Yes I reviewed the patient's medical records Lab Data Lab results reviewed: Yes I reviewed the patient's lab results Labs: Lab Results 05/21/25 05/21/25 Range/Units 10:42 12:13 WBC 7.8 (4.0-11.0) 10^3/uL RBC 2.95 L (4.20-5.40) 10^6/uL Hgb 9.0 L (12.0-16.0) g/dL Hct 30.0 L (36.0-48.0) % MCV 101.7 H (81.0-99.0) fL MCH 30.5 (26.7-34.0) pg MCHC 30.0 (29.9-35.2) g/dL RDW 16.6 H (11.0-15.0) % Plt Count 224 (150-450) 10^3/uL MPV 11.1 (9.5-13.5) fL Neut % (Auto) 64.6 (43.0-75.0) % Lymph % (Auto) 21.9 (20.5-60.0) % [place] % (Auto) 7.8 (1.7-12.0) % Eos % (Auto) 5.0 (0.9-7.0) % Baso % (Auto) 0.3 (0.2-2.0) % Neut # (Auto) 5.0 (1.4-6.5) 10^3/uL Lymph # (Auto) 1.7 (1.2-3.8) 10^3/uL [place] # (Auto) 0.6 (0.3-0.8) 10^3/uL Eos # (Auto) 0.4 (0.0-0.7) 10^3/uL Baso # (Auto) 0.0 (0.0-0.1) 10^3/uL Abs Immat Gran (auto) 0.03 (0.00-0.03) 10^3/uL Imm/Tot Granulo (auto) 0.4 (0.0-0.5) % Sodium 136 (136-145) mmol/L Potassium 3.9 (3.5-5.1) mmol/L Chloride 95 L (98-107) mmol/L Carbon Dioxide 37.3 H (21.0-32.0) mmol/L Anion Gap 7.6 BUN 51.0 H (7.0-18.0) mg/dL Creatinine 1.87 H (0.55-1.02) mg/dL Est GFR ( Amer) 31 L (>=60 mL/min/1.73m^2) Est GFR (Non-Af Amer) 26 L (>=60 mL/min/1.73m^2) BUN/Creatinine Ratio 27.3 Glucose 246 H (74-106) mg/dL Calcium 9.3 (8.5-10.1) mg/dL Total Bilirubin 0.4 (0.2-1.0) mg/dL AST 11 L (15-37) U/L ALT 13 L (14-59) U/L Alkaline Phosphatase 68 (46-116) U/L Troponin I High Sens 22.8 (4.0-51.3) pg/mL NT-Pro-B Natriuret Pep 4560.0 H* (<=1800.0) pg/mL Total Protein 6.6 (6.4-8.2) g/dL Albumin 2.7 L (3.4-5.0) g/dL Globulin 3.9 g/dL Albumin/Globulin Ratio 0.7 Urine Color Brown A (YELLOW) Urine Clarity Clear (CLEAR) Urine pH 7.5 (5.0-9.0) Ur Specific [place] 1.015 (1.005-1.025) Urine Protein >=300 A (NEG/TRACE) mg/dL Urine Glucose (UA) Negative (NEGATIVE) mg/dL Urine Ketones Trace A (NEGATIVE) mg/dL Urine Occult Blood Large A (NEGATIVE) Urine Nitrite Negative (NEGATIVE) Urine Bilirubin Small A (NEGATIVE) Urine Urobilinogen 2.0 A (0.2-1.0) EU/dL Ur Leukocyte Esterase Moderate A (NEGATIVE) Urine RBC >100 A (0-2) #/HPF Urine WBC 10-20 A (NONE SEEN) #/HPF Ur Squamous Epith Cells Moderate A (NONE/RARE) #/LPF Urine Crystals None seen (None Seen) #/HPF Urine Bacteria Moderate A (NONE SEEN) #/HPF Urine Casts None seen (NONE SEEN) #/LPF Urine Mucus None seen (NONE SEEN) Ur [place]icated[place] [place] Chest x-ray: Attestation: I personally reviewed and interpreted this imaging study as follows: Radiologist's impression: ITS Impressions Chest X-Ray 05/21/25 10:28 IMPRESSION: There is mild cardiomegaly with a small left-sided pleural effusion. This has improved when compared to the prior exam. Impression dictated by: Rhett Ponce M.D. 05/21/2025 11:21 AM Dictation Location: [facility]ALTH[facility]atheredtable Electronically authenticated by: [id number] Y Date: 05/21/2025 11:21 ECG Data Attestation: I personally reviewed and interpreted this ECG as follows: Discharge Plan Discharge Chief Complaint: Urogenital-Female Clinical Impression: Nephrostomy complication Time of Disposition Decision: 12:45 Discharge Location: [facility] Condition: Good Mode of Transportation: EMS Prescriptions / Home Meds: No Action allopurinol 300 mg tablet 300 mg PO DAILY aspirin 81 mg tablet,delayed release (DR/EC) 81 mg PO DAILY cholecalciferol (vitamin D3) 125 mcg (5,000 unit) tablet 125 mcg PO .every other day clopidogrel 75 mg tablet 75 mg PO DAILY furosemide 40 mg tablet 40 mg PO QAM pantoprazole 20 mg tablet,delayed release (DR/EC) 20 mg PO .qd carvedilol 3.125 mg Tablet 3.125 mg PO BID Qty: 0 0RF Glucagon Emergency Kit (human) 1 mg Recon Soln 1 mg IV Q15M PRN (Reason: Hypoglycemia) Qty: 0 0RF Insta-Glucose (with dextrin) 24 gram/31 gram Gel 31 g PO Q15M PRN (Reason: Hypoglycemia) Qty: 0 0RF cefuroxime axetil 250 mg tablet 250 mg PO BID 10 Days Qty: 20 0RF Patient Comments: 04/29/25-05/08/25 atorvastatin 20 mg tablet 20 mg PO BEDTIME gabapentin 100 mg capsule 100 mg PO BEDTIME loperamide [Anti-Diarrheal (loperamide)] 2 mg capsule 2 mg PO Q6H PRN (Reason: loose stool) ipratropium-albuterol 0.5 mg-3 mg(2.5 mg base)/3 mL solution for nebulization 3 ml inhalation Q6H PRN (Reason: shortness of breath or wheezing) acetaminophen 500 mg tablet 1,000 mg PO Q8H PRN (Reason: fever or pain) insulin aspart U-100 [Novolog FlexPen U-100 Insulin] 100 unit/mL (3 mL) Insulin Pen 3 - 15 unit subcut ACHS Rx Instructions: 150-200 = 3 U 201-250 = 6 U 251-300 = 9 U 301-350 = 12 U 351-400 = 15 U > 400 GIVE 15 U AND CALL MD < 60 CALL insulin glargine-yfgn 100 unit/mL (3 mL) insulin pen 25 unit subcut QPM Print Language: Citizen Of [place] Additional Instructions: Hep lock to prevent blockages. Follow up urology as previously scheduled. Referrals: Olivia Cazares MD [Primary Care Provider, Family Practice] - 1 week
[2025-05-21 12:22] LABS: Glucose Urine UA NEGATIVE (NEGATIVE)
[2025-05-21 12:34] LABS: Cast Seen? NONE SEEN #/LPF (NONE SEEN); Crystals Seen? None Seen #/HPF (None Seen); Urine Culture Indicated YES-FRMC
== END 2025-05-21 15:54 | disposition home or self-care (01) ==
PROVIDERS: Emergency Provider Student in an Organized Health Care Education/Training Program; PCP Family Medicine
DX: N99.528 Other complication of incontinent external stoma of urinary tract (principal); R82.998 Other abnormal findings in urine; R06.02 Shortness of breath; Z79.02 Long term (current) use of antithrombotics/antiplatelets
CPT/HCPCS: 36415; 71045; 80053; 81001; 83880; 84484; 85025; 87086; 93005; 99285

== ENCOUNTER 2025-07-02 12:38 | Inpatient (IN) | payer MEDICARE, SELFPAY ==
--- OUTSIDE RECORDS SUMMARY | 2024-03-01 08:00 | XMS_ITS ---
Author Organization The [facility] [place] Address [address] [place] [address] Care Team Providers Care Psychometrician Name Role Phone Sage MARLOW, Olivia Primary Care Provider Unavailab Annie Amezquita Unavailable [phone] REASON FOR VISIT nails Encounters Encounter Location Date Provider Diagnosis [facility] (PODIATRY) [address] [place] [address] [place] [address] 03/01/2024 Annie Gasca Plan Of Treatment No Information Progress Notes * Lexi CM LDOB:1944 (80 yo F)Acc No.[id number]:03/01/2024 UNLOCKED PROGRESS NOTE Nurse Visit Patient: Lexi SALAZAR :?RAMON HernandezCDOB:1945???Age:78 Y ???Sex:FemaleDate:4Phone:[phone]:[address] [place] [address]Lis:Olivia Cazares MD Subjective: * Chief Complaints: * 1 . Nails. * Medical History: Objective: * Vitals: Assessment: Plan: * Treatment: * * Electronic signature of Annie Gasca PA-C on 07/02/2025 at 01:06 PM ESTSign off status: PendingVisit Status:?CANC (Cancelled) * Provider: Azul Gasca PA-C Date: 0 03/01/2024 Generated for Printing/Faxing/eTransmitting on:?07/02/2025 01:06 PM EST
--- OUTSIDE RECORDS SUMMARY | 2024-08-02 10:30 | XMS_ITS ---
Author Organization The [facility] in [place] Address [address] [place] [address] Care Team Providers Care Honeycomb Decapper Name Role Phone Olivia Cazares MD Primary Care Provider Unavailab demetrio Annie Gasca Unavailable [phone] Allergies No Known Allergies REASON FOR VISIT [...] Former smoker Vital Signs Weight 165 lbs 08/02/2024 Height 59 in 08/02/2024 Temperature 97.1 degrees Fahrenheit 08/02/19 25 Heart Rate 75 /min 08/02/2024 BMI 33.32 kg/m2 08/02/2024 Oximetry 98 % 08/02/2024 Encounters Encounter Location Date Provider Diagnosis [facility] (PODIATRY) [address] [place] [address] [place] [address] 08/02/2024 Annie Gasca Type 2 diabetes mellitus [...] * Lexi CM LDOB:1944 (80 yo F)Acc No.[id number]:08/02/2024 UNLOCKED PROGRESS NOTE Nurse Visit Patient: Serge JAZMÍN Lexi Nestor :?RAMON HernandezCDOB:1945???Age:79 Y ???Sex:FemaleDate:08/02/2024Phone:[phone]:[address] [place] [address] [place], [place]H[address]Qrp:Daisy Salinas In:03:17 PM ESTCheck Out:03:39 PM EST [...] at 01:06 PM ESTSign off status: PendingVisit Status:?CHK (Check Out) * Provider: Azul Gasca PA-C Date: 0 08/02/2024 Generated for Printing/Faxing/eTransmitting on:?07/02/2025 01:06 PM EST History and Physical Notes * HPI (History of Present Illness) CategorySub-CategoryDetailNotesCategory NotesGeneralNails 1-10 were trimmed and filed down to patients liking. No area of concern to toes.
--- OUTSIDE RECORDS SUMMARY | 2024-10-25 10:00 | XMS_ITS ---
Author Organization [facility] in [place] Address [address] [place] [address] Care Team Providers Care Set Up Person Name Role Phone Olivia Cazares MD Primary Care Provider Unavailab Annie Amezquita Unavailable [phone] REASON FOR VISIT Nail Care Encounters Encounter Location Date Provider Diagnosis [facility] (PODIATRY) [address] [place] [address] [place] [address] 10/25/2024 Annie Gasca Plan Of Treatment No Information Progress Notes * Lexi CM LDOB:1944 (80 yo F)Acc No.[id number]:10/25/2024 UNLOCKED PROGRESS NOTE Nurse Visit Patient: Lexi SALAZAR :?RAMON HernandezCDOB:1945???Age:79 Y ???Sex:FemaleDate:10/25/2024Phone:[phone]:[address] [place] [address]Jzt:Olivia Cazares MD Subjective: * Chief Complaints: * 1 . Nail Care. * Medical History: Objective: * Vitals: Assessment: Plan: * Treatment: * * Electronic signature of Annie Gasca PA-C on 07/02/2025 at 01:06 PM ESTSign off status: PendingVisit Status:?OFF CANC (OFFICE CANCEL) * Provider: Azul Gasca PA-C Date: 0 10/25/2024 Generated for Printing/Faxing/eTransmitting on:?07/02/2025 01:06 PM EST
--- OUTSIDE RECORDS SUMMARY | 2025-06-28 08:00 | XMS_ITS | Encounter Summary ---
Author Organization [facility] Address [address] [place] [id number] Care Team Providers Care Senior Software Test Engineer Name Role Phone Yaniv Natarajan MD Unavailable [phone] Source Comments In the event this information is protected by the Federal Confidentiality of Alcohol and Drug AbusePatient Records regulations: The Federal rules restrict any use of the information to criminally investigate or prosecute any alcohol or drug abuse patient.[facility] Reason for Referral * Diagnostic Procedure Only (Urgent) - ClosedSpecialtyDiagnoses / Procedures Referred By ContactReferred To ContactXR IMAGING Diagnoses Hydronephrosis, unspecified hydronephrosis type Procedures XR ABDOMEN 2V ROUTINE SUPINE W UPRIGHT/DECUB/CTL RADIOLOGIC EXAM ABDOMEN 2 VIEWS Romel Maria MD [address] [place] [address] Phone: tel: fax: [place] [phone] Referral IDStatusReasonStart DateExpiration DateVisits RequestedVisits [id number] Auto-Generated Referral / Reason for Visit * ReasonCommentsConsult * Consult, Test, Treat (Routine) - ClosedSpecialtyDiagnoses / ProceduresReferred By ContactReferred To ContactUrology Diagnoses Other hydronephrosis Procedures OFFICE/OUTPATIENT NEW HIGH [facility] 60 MINUTES Yaniv Natarajan MD [address] [address] Phone: tel: fax: Referral IDStatusReasonStart DateExpiration DateVisits RequestedVisits [id number] PCP Requested Referral Encounter Details DateTypeDepartmentCare Team (Latest Contact Info)Psevrqhoamg89/16/2025 8:00 AM ESTOffice Visit Urology [address] [place], [place] [id number] Romel Maria MD [address] [place], [place] [phone] Hydronephrosis, unspecified hydronephrosis type (Primary Dx); Presence of other specified devices; Recurrent urinary tract infection; Recurrent UTI Social History Tobacco UseTypesPacks/DayYears UsedDateSmoking Tobacco: Never Assessed CommentsUnknownSex and Gender InformationValueDate RecordedSex Assigned at Not on fileLegal XkwFrjyha99/03/2025 12:53 PM ESTGender IdentityNot on file Sexual OrientationNot on filedocumented as of this encounter Last Filed Vital Signs Vital SignReadingTime TakenCommentsBlood Nfxqhcmg071/51108/29/2024 8:14 AM EST Ncvgu544906/28/2025 8:14 AM ESTTemperature--Respiratory Rate--Oxygen Saturation-- Inhaled Oxygen Concentration--Yyryqv05.2 kg (157 lb)06/28/2025 8:14 AM ESTHeight --Body Mass Index--documented in this encounter Progress Notes * Romel Maria MD - 06/28/2025 8:03 AM EST Images from the original note were not included. [facility] NEW PATIENT HISTORY AND PHYSICAL EXAM PATIENT INFO: Lexi Hendrickskellen 80 year old CC The patient is an 80-year-old female with bilateral ureteral stents and a left nephrostomy tube,presenting for evaluation and management of a coiled left ureteral stent. HPI The patient is an 80-year-old female with a history of recurrent UTIs, bilateral ureteral stents, and a left nephrostomy tube, presenting for evaluation of a coiled stent in the left kidney. Coiled Stent: - Bilateral ureteral stents placed last year due to scar tissue in the ureters. - One stent on the left side is coiled and pushed up into the kidney; unable to be removed by previous physician. - Left nephrostomy tube placed one month ago at [facility] due to stents not functioning properly. - Recent imaging at [facility]. - No history of malignancy. Recurrent UTIs: - Frequent UTIs since stent placement. - Recent UTI treated with antibiotics; another UTI developed one week later. - Believes UTIs are related to stent issues. Surgical History: - Three C-sections. - Open heart surgery. - Aortic bypass surgery in 2019. - Hip surgery. Creatinine April 07, 2025 1:00pm April 07, 2025 1:00pm 1.86 mg/dL Creatinine April 11, 2025 8:36am April 11, 2025 8:36am 3.07 mg/dL Visit complexity inherent to evaluation and management associated with medical care services that serve as the continuing focal point for all needed health care services and/or with medical care services that are part of ongoing care related to a patient???s single, serious condition or a complex condition. LAST MENSTRUAL PERIOD DATE: 47s Pregnancies Pregnancies: 3, Births: 3, and Abortions: 0 PAST MEDICAL HISTORY: CAD (coronary artery disease) March 21, 2025 10:00am Heart failure, unspecified March 21, 2025 10:00am Hyperlipidemia March 21, 2025 10:00am Hypertension March 21, 2025 10:00am Morbid (severe) obesity due to excess calories March 21, 2025 10:00am Osteoarthritis of left hip March 21, 2025 10:00am S/P total left hip arthroplasty March 21, 2025 10:00am Weakness March 21, 2025 10:00am CKD (chronic kidney disease) March 22, 2025 5:26pm CKD (chronic kidney disease) stage 4, GFR 15-29 ml/min March 22, 2025 5:26pm Hyperlipidemia March 22, 2025 5:26pm Hypertension March 22, 2025 5:26pm Impaired mobility March 22, 2025 5:26pm PAD (peripheral artery disease) March 22, 2025 5:26pm S/P total left hip arthroplasty March 22, 2025 5:26pm Type 2 diabetes mellitus with hyperglycemia March 22, 2025 5:26pm Acute on chronic systolic (congestive) heart failure March 22, 2025 5:26pm Steroid-induced hyperglycemia March 22, 2025 5:26pm Aftercare following left hip joint replacement surgery April 06, 2025 2:07pm S/P total left hip arthroplasty April 06, 2025 2:07pm CKD (chronic kidney disease) April 07, 2025 11:35pm CHF exacerbation April 07, 2025 11:35pm Coronary artery disease April 07, 2025 11:35pm Gout April 07, 2025 11:35pm Ischemic cardiomyopathy April 07, 2025 11:35pm Steroid-induced hyperglycemia April 07, 2025 11:35pm Type 2 diabetes mellitus with diabetic chronic kidney disease April 07, 2025 11:35pm Anemia of renal disease June 02, 2025 3:15pm CKD (chronic kidney disease) stage 4, GFR 15-29 ml/min June 02, 2025 3:15pm Hyperlipidemia June 02, 2025 3:15pm Hypertensive chronic kidney disease with stage 1 through stage 4 chronic ki June 02, 2025 3:15pm Obstructive uropathy June 02, 2025 3:15pm Proteinuria June 02, 2025 3:15pm Secondary hyperparathyroidism June 02, 2025 3:15pm Gout June 02, 2025 3:15pm Type 2 diabetes mellitus with diabetic chronic kidney disease PAST SURGICAL HISTORY: No past surgical history on file. FAMILY HISTORY: No family history on file. SOCIAL HISTORY: Social History[1] MEDICATIONS: Insulin Glargine (Lantus) 100 unit/mL Solution Discontinued 40 UNITS SUBCUT Daily May 13, 2017 11:00pm June 25, 2017 10:06am Potassium Chloride 10 mEq Tablet Extended Release Discontinued 10 MEQ PO Daily May 13, 2017 11:00pm June 25, 2017 10:05am Clopidogrel (Plavix) 75 mg Tablet Active 75 MG PO Daily May 13, 2017 11:00pm Complies with drug therapy Aspirin (Beth Low Dose Aspirin) 81 mg Tablet,Delayed Release (Dr/Ec) Active 81 MG PO Daily 2016 11:00pm Complies with drug therapy Vitamin B Complex Tablet Discontinued 1 TAB PO Daily May 13, 2017 11:00pm July 20, 2018 6:44am Allopurinol (Zyloprim) 300 mg Tablet Discontinued 300 MG PO Daily May 13, 2017 11:00pm 2024 2:24pm gout prevention Furosemide (Lasix) 20 mg Tablet Discontinued 20 MG PO Daily as needed for Edema May 13, 2017 11:00pm January 12, 2024 3:18pm Gabapentin 100 mg Capsule Discontinued 200 MG PO Twice daily May 13, 2017 11:00pm June 25, 2017 10:51am Lisinopril 2.5 mg Ta LABS: Relevant Diagnostic Tests and/or Laboratory Data Test Collection Date/Time Result Date/Time Result Interpretation Reference Range Result Comment Performing Site B-Type Natriuretic Peptide April 07, 2025 1:00pm April 07, 2025 1:00pm 6616.0 pg/mL Above upper panic limits <=1800.0 RESULTS CALLED TO Connie Cruz RN Anion Gap April 07, 2025 1:00pm April 07, 2025 1:00pm 9.4 Basophils # (Auto) April 07, 2025 1:00pm April 07, 2025 1:00pm 0.0 10 3/uL 0.0-0.1 Troponin I High Sensitivity April 07, 2025 1:48pm April 07, 2025 1:48pm 66.6 pg/mL Above upper panic limits 4.0-51.3 RESULTS CALLED TO KARY ESCAMILLA RN CUT-OFF POINTS HAVE BEEN ESTABLISHED BASED ON THE FOURTH UNIVERSAL DEFINITION OF MYOCARDIAL INFARCTION. THE UPPER REFERENCE LIMIT (URL) OF TROPONIN, DEFINED THE 99TH PERCENTILE OF cTnI DISTRIBUTION IN A REFERENCE POPULATION, HAS BEEN CONFIRMED THE DECISION THRESHOLD FOR KS DIAGNOSIS. 99TH PERCENTILE = 51.4 PG/ML NOTE: HIGH-SENSITIVITY TROPONIN ASSAY IS NOT INTENDED TO BE USED IN ISOLATION BUT SHOULD BE INTERPRETED IN CONJUNCTION WITH OTHER DIAGNOSTIC AND CLINICAL INFORMATION. C-Reactive Protein, Quantitative April 11, 2025 8:36am April 11, 2025 8:36am 16.41 mg/dL Above high normal <=0.50 Anion Gap April 11, 2025 8:36am April 11, 2025 8:36am 13.8 Basophils # (Auto) April 11, 2025 8:36am April 11, 2025 8:36am 0.0 10 3/uL 0.0-0.1 Urine Culture Reflexed April 11, 2025 9:20am ALREADY ORDERED Troponin I High Sensitivity April 11, 2025 9:51am April 11, 2025 9:51am 134.7 pg/mL Above upper panic limits 4.0-51.[address] gentile CUT-OFF POINTS HAVE BEEN ESTABLISHED BASED ON THE FOURTH UNIVERSAL DEFINITION OF MYOCARDIAL INFARCTION. THE UPPER REFERENCE LIMIT (URL) OF TROPONIN, DEFINED THE 99TH PERCENTILE OF cTnI DISTRIBUTION IN A REFERENCE POPULATION, HAS BEEN CONFIRMED THE DECISION THRESHOLD FOR KS DIAGNOSIS. 99TH PERCENTILE = 51.4 PG/ML NOTE: HIGH-SENSITIVITY TROPONIN ASSAY IS NOT INTENDED TO BE USED IN ISOLATION BUT SHOULD BE INTERPRETED IN CONJUNCTION WITH OTHER DIAGNOSTIC AND CLINICAL INFORMATION. Lactic Acid Level April 11, 2025 6:18pm April 11, 2025 6:18pm 1.4 mmol/L 0.4-2.0 B-Type Natriuretic Peptide April 12, 2025 4:45am April 12, 2025 4:45am 7394.0 pg/mL Above upper panic limits <=1800.0 RESULTS CALLED TO JORDAN CLAUDIO RN Troponin I High Sensitivity April 12, 2025 4:45am April 12, 2025 4:45am 165.0 pg/mL Above upper panic limits 4.0-51.3 RESULTS CALLED TO JORDAN CLAUDIO RN CUT-OFF POINTS HAVE BEEN ESTABLISHED BASED ON THE FOURTH UNIVERSAL DEFINITION OF MYOCARDIAL INFARCTION. THE UPPER REFERENCE LIMIT (URL) OF TROPONIN, DEFINED THE 99TH PERCENTILE OF cTnI DISTRIBUTION IN A REFERENCE POPULATION, HAS BEEN CONFIRMED THE DECISION THRESHOLD FOR KS DIAGNOSIS. 99TH PERCENTILE = 51.4 PG/ML NOTE: HIGH-SENSITIVITY TROPONIN ASSAY IS NOT INTENDED TO BE USED IN ISOLATION BUT SHOULD BE INTERPRETED IN CONJUNCTION WITH OTHER DIAGNOSTIC AND CLINICAL INFORMATION. Anion Gap April 12, 2025 4:45am April 12, 2025 4:45am 13.6 Hematocrit April 12, 2025 4:45am April 12, 2025 4:45am 27.0 % Below low normal 36.0-48.0 Troponin I High Sensitivity April 13, 2025 4:41am April 13, 2025 4:41am 127.6 pg/mL Above upper panic limits 4.0-51.3 RESULTS CALLED TO AIDA BAER RN CUT-OFF POINTS HAVE BEEN ESTABLISHED BASED ON THE FOURTH UNIVERSAL DEFINITION OF MYOCARDIAL INFARCTION. THE UPPER REFERENCE LIMIT (URL) OF TROPONIN, DEFINED THE 99TH PERCENTILE OF cTnI DISTRIBUTION IN A REFERENCE POPULATION, HAS BEEN CONFIRMED THE DECISION THRESHOLD FOR KS DIAGNOSIS. 99TH PERCENTILE = 51.4 PG/ML NOTE: HIGH-SENSITIVITY TROPONIN ASSAY IS NOT INTENDED TO BE USED IN ISOLATION BUT SHOULD BE INTERPRETED IN CONJUNCTION WITH OTHER DIAGNOSTIC AND CLINICAL INFORMATION. Anion Gap April 13, 2025 4:41am April 13, 2025 4:41am 11.8 Hematocrit April 13, 2025 4:41am April 13, 2025 4:41am 30.8 % Below low normal 36.0-48.0 Potassium Level April 13, 2025 6:49pm April 13, 2025 6:49pm 5.0 mmol/L 3.5-5.1 Troponin I High Sensitivity April 14, 2025 4:28am April 14, 2025 4:28am 100.2 pg/mL Above upper panic limits 4.0-51.3 RESULTS CALLED TO JEFFERY COULTER RN @BY Alexandra Villalpando at 0605 CUT-OFF POINTS HAVE BEEN ESTABLISHED BASED ON THE FOURTH UNIVERSAL DEFINITION OF MYOCARDIAL INFARCTION. THE UPPER REFERENCE LIMIT (URL) OF TROPONIN, DEFINED THE 99TH PERCENTILE OF cTnI DISTRIBUTION IN A REFERENCE POPULATION, HAS BEEN CONFIRMED THE DECISION THRESHOLD FOR KS DIAGNOSIS. 99TH PERCENTILE = 51.4 PG/ML NOTE: HIGH-SENSITIVITY TROPONIN ASSAY IS NOT INTENDED TO BE USED IN ISOLATION BUT SHOULD BE INTERPRETED IN CONJUNCTION WITH OTHER DIAGNOSTIC AND CLINICAL INFORMATION. Anion Gap April 14, 2025 4:28am April 14, 2025 4:28am 13.8 Anion Gap April 15, 2025 4:58am April 15, 2025 4:58am 10.8 Urine Culture Reflexed May 02, 2025 1:40am [facility] Osmolality May 02, 2025 9:15am May 02, 2025 9:15am 288 mOsmol/kg 280-301 Performed at: - [facility] [id number] Thread Cutter Tender: Navneet Carcamo MD, Phone: [phone] Lactic Acid Level May 02, 2025 9:15am May 02, 2025 9:15am 1.0 mmol/L 0.4-2.0 B-Type Natriuretic Peptide May 02, 2025 9:15am May 02, 2025 9:15am 37352.0 pg/mL Above upper panic limits <=1800.0 RESULTS CALLED TO GUS EMMANUEL RN Troponin I High Sensitivity May 02, 2025 9:15am May 02, 2025 9:15am 17.8 pg/mL 4.0-51.3CUT-OFF POINTS HAVE BEEN ESTABLISHED BASED ON THE FOURTH UNIVERSAL DEFINITION OF MYOCARDIAL INFARCTION. THE UPPER REFERENCE LIMIT (URL) OF TROPONIN, DEFINED THE 99TH PERCENTILE OF cTnI DISTRIBUTION IN A REFERENCE POPULATION, HAS BEEN CONFIRMED THE DECISION THRESHOLD FOR KS DIAGNOSIS. 99TH PERCENTILE = 51.4 PG/ML NOTE: HIGH-SENSITIVITY TROPONIN ASSAY IS NOT INTENDED TO BE USED IN ISOLATION BUT SHOULD BE INTERPRETED IN CONJUNCTION WITH OTHER DIAGNOSTIC AND CLINICAL INFORMATION. Anion Gap May 02, 2025 9:15am May 02, 2025 9:15am 14.9 Magnesium Level May 02, 2025 9:15am May 02, 2025 9:15am 2.4 mg/dL 1.8-2.4 Basophils # (Auto) May 02, 2025 9:15am May 02, 2025 9:15am 0.0 10 3/uL 0.0-0.1 SARS-CoV-2 Ag (CV2AG) May 02, 2025 9:45am May 02, 2025 9:45am NEGATIVE NEGATIVE This test has not been FDA cleared or approved, but has been authorized by the FDA under an Emergency Use Authorization (EUA) for use by authorized laboratories certified under CLIA that meet the requirements to perform moderate or high complexity testing. This test has been authorized only for the detection of proteins from SARS-CoV-2, not for any other viruses or pathogens. The emergency use of this test is authorized for the duration of the declaration that circumstances exist justifying the authorization of emergency use of in vitro diagnostic tests for detection and/or diagnosis of Covid-19 under section 564(b)(1) of the Act, 21 U.S.C. 360bbb-3(b)(1), unless the declaration is terminated or authorization is revoked sooner. Bedside Influenza Type A Antigen May 02, 2025 9:45am May 02, 2025 9:45am Negative Negative for Flu A protein antigen. Infection due to Flu A cannot be ruled out. Flu A antigen in the sample may be below the detection limit of the test. Venous Blood Partial Pressure CO2 May 02, 2025 12:12pm May 02, 2025 12:12pm 44.6 mm[Hg]40.0-52.0 Urine Random Sodium May 03, 2025 1:40am May 03, 2025 1:40am 38 mmol/L 30-90 B-Type Natriuretic Peptide May 03, 2025 4:39am May 03, 2025 4:39am 73169.0 pg/mL Above upper panic limits <=1800.0 RESULTS CALLED TO MOHINI BAER RN at 1306 Magnesium Level May 03, 2025 4:39am May 03, 2025 4:39am 2.3 mg/dL 1.8-2.4 Phosphorus Level May 03, 2025 4:39am May 03, 2025 4:39am 4.8 mg/dL Above high normal 2.6-4.7 Anion Gap May 03, 2025 4:39am May 03, 2025 4:39am 12.9 Basophils # (Auto) May 03, 2025 4:39am May 03, 2025 4:39am 0.0 10 3/uL 0.0-0.1 Magnesium Level May 04, 2025 5:10am May 04, 2025 5:10am 2.2 mg/dL 1.8-2.4 Phosphorus Level May 04, 2025 5:10am May 04, 2025 5:10am 4.5 mg/dL 2.6-4.7 Anion Gap May 04, 2025 5:10am May 04, 2025 5:10am 10.6 C-Reactive Protein, Quantitative May 04, 2025 5:10am May 04, 2025 5:10am 3.21 mg/dL Above high normal <=0.50 Basophils # (Auto) May 04, 2025 5:10am May 04, 2025 5:10am 0.0 10 3/uL 0.0-0.1 Magnesium Level May 05, 2025 4:37am May 05, 2025 4:37am 2.1 mg/dL 1.8-2.4 Anion Gap May 05, 2025 4:37am May 05, 2025 4:37am 9.0 Basophils # (Auto) May 05, 2025 4:37am May 05, 2025 4:37am 0.0 10 3/uL 0.0-0.1 Activated Partial Thromboplast Time May 05, 2025 9:28am May 05, 2025 9:28am 29.7 sec 22.3-36.2 Prothromb Time International Ratio May 05, 2025 9:28am May 05, 2025 9:28am 1.09 DESIREDINR: 2.0-3.0 CONDITIONS NOT LISTED BELOW 2.5-3.5 FOR PROSTHETIC HEART VALVE REPLACEMENT 2.5-3.5 RECURRENT THROMBOSIS B-Type Natriuretic Peptide May 06, 2025 4:33am May 06, 2025 4:33am 30579.0 pg/mL Above upper panic limits <=1800.0 RESULTS CALLED TO Bandar Hernández, LIANE @BY Hever Webb MLT at 0625 Magnesium Level May 06, 2025 4:33am May 06, 2025 4:33am 2.1 mg/dL 1.8-2.4 Phosphorus Level May 06, 2025 4:33am May 06, 2025 4:33am 4.2 mg/dL 2.6-4.7 Anion Gap May 06, 2025 4:33am May 06, 2025 4:33am 11.7 Basophils # (Auto) May 06, 2025 4:33am May 06, 2025 4:33am 0.0 10 3/uL 0.0-0.1 Anion Gap May 07, 2025 5:11am May 07, 2025 5:11am 9.7 Anion Gap May 08, 2025 9:54am May 08, 2025 9:54am 11.8 Basophils # (Auto) May 08, 2025 9:54am May 08, 2025 9:54am 0.0 10 3/uL 0.0-0.1 Marcos Test May 08, 2025 2:48pm May 08, 2025 2:48pm POSITIVE POSITIVE B-Type Natriuretic Peptide May 21, 2025 10:42am May 21, 2025 10:42am 4560.0 pg/mL Aboveupper panic limits <=1800.0 RESULTS CALLED TO JULIÁN MEJIA RN Troponin I High Sensitivity May 21, 2025 10:42am May 21, 2025 10:42am 22.8 pg/mL 4.0-51.3 CUT-OFF POINTS HAVE BEEN ESTABLISHED BASED ON THE FOURTH UNIVERSAL DEFINITION OF MYOCARDIAL INFARCTION. THE UPPER REFERENCE LIMIT (URL) OF TROPONIN, DEFINED THE 99TH PERCENTILE OF cTnI DISTRIBUTION IN A REFERENCE POPULATION, HAS BEEN CONFIRMED THE DECISION THRESHOLD FOR KS DIAGNOSIS. 99TH PERCENTILE = 51.4 PG/ML NOTE: HIGH-SENSITIVITY TROPONIN ASSAY IS NOT INTENDED TO BE USED IN ISOLATION BUT SHOULD BE INTERPRETED IN CONJUNCTION WITH OTHER DIAGNOSTIC AND CLINICAL INFORMATION. Anion Gap May 21, 2025 10:42am May 21, 2025 10:42am 7.6 Basophils # (Auto) May 21, 2025 10:42am May 21, 2025 10:42am 0.0 10 3/uL 0.0-0.1 Urine Culture Reflexed May 21, 2025 12:13pm [facility] BUN/Creatinine Ratio April 07, 2025 1:00pm April 07, 2025 1:00pm 18.3 Basophils (%) (Auto) April 07, 2025 1:00pm April 07, 2025 1:00pm 0.2 % 0.2-2.0 BUN/Creatinine Ratio April 11, 2025 8:36am April 11, 2025 8:36am 16.0 Basophils (%) (Auto) April 11, 2025 8:36am April 11, 2025 8:36am 0.2 % 0.2-2.0 Urine Other Casts April 11, 2025 9:20am NONE SEEN #/LPF NONE SEEN Albumin/Globulin Ratio April 12, 2025 4:45am April 12, 2025 4:45am 0.6 Hemoglobin April 12, 2025 4:45am April 12, 2025 4:45am 8.0 g/dL Below low normal 12.0-16.0 Albumin/Globulin Ratio April 13, 2025 4:41am April 13, 2025 4:41am 0.5 Hemoglobin April 13, 2025 4:41am April 13, 2025 4:41am 9.3 g/dL Below low normal 12.0-16.0 BUN/Creatinine Ratio April 14, 2025 4:28am April 14, 2025 4:28am 21.0 BUN/Creatinine Ratio April 15, 2025 4:58am April 15, 2025 4:58am 18.5 Urine Other Casts May 02, 2025 1:40am NONE SEEN #/LPF NONE SEEN BUN/Creatinine Ratio May 02, 2025 9:15am May 02, 2025 9:15am 33.7 Basophils (%) (Auto) May 02, 2025 9:15am May 02, 2025 9:15am 0.4 % 0.2-2.0 Bedside Influenza Type B Antigen May 02, 2025 9:45am May 02, 2025 9:45am Negative Negative for Flu B protein antigen. Infection due to Flu B cannot be ruled out. Flu B antigen in the sample may be below the detection limit of the test. Venous Blood pH May 02, 2025 12:12pm May 02, 2025 12:12pm 7.384 7.330-7.430 Albumin/Globulin Ratio May 03, 2025 4:39am May 03, 2025 4:39am 0.5 Basophils (%) (Auto) May 03, 2025 4:39am May 03, 2025 4:39am 0.5 % 0.2-2.0 Albumin/Globulin Ratio May 04, 2025 5:10am May 04, 2025 5:10am 0.6 Basophils (%) (Auto) May 04, 2025 5:10am May 04, 2025 5:10am 0.4 % 0.2-2.0 Albumin/Globulin Ratio May 05, 2025 4:37am May 05, 2025 4:37am 0.6 Basophils (%) (Auto) May 05, 2025 4:37am May 05, 2025 4:37am 0.4 % 0.2-2.0 Prothrombin Time May 05, 2025 9:28am May 05, 2025 9:28am 11.5 sec 9.0-11.6 Albumin/Globulin Ratio May 06, 2025 4:33am May 06, 2025 4:33am 0.6 Basophils (%) (Auto) May 06, 2025 4:33am May 06, 2025 4:33am 0.4 % 0.2-2.0 BUN/Creatinine Ratio May 07, 2025 5:11am May 07, 2025 5:11am 33.0 BUN/Creatinine Ratio May 08, 2025 9:54am May 08, 2025 9:54am 33.7 Basophils (%) (Auto) May 08, 2025 9:54am May 08, 2025 9:54am 0.3 % 0.2-2.0 Arterial Blood Base Excess May 08, 2025 2:48pm May 08, 2025 2:48pm 10.5 mmol/L Above high normal <2.0-2.0 Albumin/Globulin Ratio May 21, 2025 10:42am May 21, 2025 10:42am 0.7 Basophils (%) (Auto) May 21, 2025 10:42am May 21, 2025 10:42am 0.3 % 0.2-2.0 Urine Other Casts May 21, 2025 12:13pm NONE SEEN #/LPF NONE SEEN Blood Urea Nitrogen April 07, 2025 1:00pm April 07, 2025 1:00pm 34.0 mg/dL Above high normal 7.0-18.0 Eosinophils # (Auto) April 07, 2025 1:00pm April 07, 2025 1:00pm 0.1 10 3/uL 0.0-0.7 Blood Urea Nitrogen April 11, 2025 8:36am April 11, 2025 8:36am 49.0 mg/dL Above high normal 7.0-18.0 Eosinophils # (Auto) April 11, 2025 8:36am April 11, 2025 8:36am 0.2 10 3/uL 0.0-0.7 Urine Other Crystals April 11, 2025 9:20am None Seen #/HPF None Seen Albumin April 12, 2025 4:45am April 12, 2025 4:45am 2.2 g/dL Below low normal 3.4-5.0 Mean Corpuscular Hemoglobin April 12, 2025 4:45am April 12, 2025 4:45am 31.7 pg 26.7-34.0 Albumin April 13, 2025 4:41am April 13, 2025 4:41am 2.2 g/dL Below low normal 3.4-5.0 Mean Corpuscular Hemoglobin April 13, 2025 4:41am April 13, 2025 4:41am 32.1 pg 26.7-34.0 Blood Urea Nitrogen April 14, 2025 4:28am April 14, 2025 4:28am 59.0 mg/dL Above high normal 7.0-18.0 Blood Urea Nitrogen April 15, 2025 4:58am April 15, 2025 4:58am 51.0 mg/dL Above high normal 7.0-18.0 Urine Other Crystals May 02, 2025 1:40am None Seen #/HPF None Seen Blood Urea Nitrogen May 02, 2025 9:15am May 02, 2025 9:15am 70.0 mg/dL Above high normal 7.0-18.0 Eosinophils # (Auto) May 02, 2025 9:15am May 02, 2025 9:15am 0.0 10 3/uL 0.0-0.7 Albumin May 03, 2025 4:39am May 03, 2025 4:39am 2.2 g/dL Below low normal 3.4-5.0 Eosinophils # (Auto) May 03, 2025 4:39am May 03, 2025 4:39am 0.1 10 3/uL 0.0-0.7 Albumin May 04, 2025 5:10am May 04, 2025 5:10am 2.3 g/dL Below low normal 3.4-5.0 Eosinophils # (Auto) May 04, 2025 5:10am May 04, 2025 5:10am 0.1 10 3/uL 0.0-0.7 Albumin May 05, 2025 4:37am May 05, 2025 4:37am 2.3 g/dL Below low normal 3.4-5.0 Eosinophils # (Auto) May 05, 2025 4:37am May 05, 2025 4:37am 0.1 10 3/uL 0.0-0.7 Albumin May 06, 2025 4:33am May 06, 2025 4:33am 2.4 g/dL Below low normal 3.4-5.0 Eosinophils # (Auto) May 06, 2025 4:33am May 06, 2025 4:33am 0.2 10 3/uL 0.0-0.7 Blood Urea Nitrogen May 07, 2025 5:11am May 07, 2025 5:11am 65.0 mg/dL Above high normal 7.0-18.0 Blood Urea Nitrogen May 08, 2025 9:54am May 08, 2025 9:54am 68.0 mg/dL Above high normal 7.0-18.0 Eosinophils # (Auto) May 08, 2025 9:54am May 08, 2025 9:54am 0.2 10 3/uL 0.0-0.7 Arterial Blood HCO3 May 08, 2025 2:48pm May 08, 2025 2:48pm 35.8 mmol/L Above high normal 22.0-26.0 Albumin May 21, 2025 10:42am May 21, 2025 10:42am 2.7 g/dL Below low normal 3.4-5.0 Eosinophils # (Auto) May 21, 2025 10:42am May 21, 2025 10:42am 0.4 10 3/uL 0.0-0.7 Urine Other Crystals May 21, 2025 12:13pm None Seen #/HPF None Seen Calcium Level April 07, 2025 1:00pm April 07, 2025 1:00pm 8.9 mg/dL 8.5-10.1 Eosinophils (%) (Auto) April 07, 2025 1:00pm April 07, 2025 1:00pm 1.3 % 0.9-7.0 Calcium Level April 11, 2025 8:36am April 11, 2025 8:36am 9.0 mg/dL 8.5-10.1 Eosinophils (%) (Auto) April 11, 2025 8:36am April 11, 2025 8:36am 1.8 % 0.9-7.0 Urine Bacteria April 11, 2025 9:20am LARGE #/HPF Abnormal (applies to non- numeric results) NONE SEEN Alkaline Phosphatase April 12, 2025 4:45am April 12, 2025 4:45am 56 U/L 46-116 Mean Corpuscular Hemoglobin Concent April 12, 2025 4:45am April 12, 2025 4:45am 29.6 g/dL Below low normal 29.9-35.2 Alkaline Phosphatase April 13, 2025 4:41am April 13, 2025 4:41am 62 U/L 46-116 Mean Corpuscular Hemoglobin Concent April 13, 2025 4:41am April 13, 2025 4:41am 30.2 g/dL 29.9-35.2 Calcium Level April 14, 2025 4:28am April 14, 2025 4:28am 8.7 mg/dL 8.5-10.1 Calcium Level April 15, 2025 4:58am April 15, 2025 4:58am 8.6 mg/dL 8.5-10.1 Urine Bacteria May 02, 2025 1:40am MODERATE #/HPF Abnormal (applies to non-numeric results) NONE SEEN Calcium Level May 02, 2025 9:15am May 02, 2025 9:15am 8.9 mg/dL 8.5-10.1 Eosinophils (%) (Auto) May 02, 2025 9:15am May 02, 2025 9:15am 0.4 % Below low normal 0.9-7.0 Alkaline Phosphatase May 03, 2025 4:39am May 03, 2025 4:39am 91 U/L 46-116 Eosinophils (%) (Auto) May 03, 2025 4:39am May 03, 2025 4:39am 1.5 % 0.9-7.0 Alkaline Phosphatase May 04, 2025 5:10am May 04, 2025 5:10am 83 U/L 46-116 Eosinophils (%) (Auto) May 04, 2025 5:10am May 04, 2025 5:10am 1.5 % 0.9-7.0 Alkaline Phosphatase May 05, 2025 4:37am May 05, 2025 4:37am 80 U/L 46-116 Eosinophils (%) (Auto) May 05, 2025 4:37am May 05, 2025 4:37am 2.0 % 0.9-7.0 Alkaline Phosphatase May 06, 2025 4:33am May 06, 2025 4:33am 77 U/L 46-116 Eosinophils (%) (Auto) May 06, 2025 4:33am May 06, 2025 4:33am 2.1 % 0.9-7.0 Calcium Level May 07, 2025 5:11am May 07, 2025 5:11am 9.2 mg/dL 8.5-10.1 Calcium Level May 08, 2025 9:54am May 08, 2025 9:54am 9.1 mg/dL 8.5-10.1 Eosinophils (%) (Auto) May 08, 2025 9:54am May 08, 2025 9:54am 2.0 % 0.9-7.0 Blood Gas Liter Flow May 08, 2025 2:48pm May 08, 2025 2:48pm 4L Alkaline Phosphatase May 21, 2025 10:42am May 21, 2025 10:42am 68 U/L 46-116 Eosinophils (%) (Auto) May 21, 2025 10:42am May 21, 2025 10:42am 5.0 % 0.9-7.0 Urine Bacteria May 21, 2025 12:13pm MODERATE #/HPF Abnormal (applies to non-numeric results) NONE SEEN Chloride Level April 07, 2025 1:00pm April 07, 2025 1:00pm 101 mmol/L 98-107 Hematocrit April 07, 2025 1:00pm April 07, 2025 1:00pm 33.8 % Below low normal 36.0-48.0 Chloride Level April 11, 2025 8:36am April 11, 2025 8:36am 100 mmol/L 98-107 Hematocrit April 11, 2025 8:36am April 11, 2025 8:36am 36.3 % 36.0-48.0 Urine Bilirubin April 11, 2025 9:20am COLOR INTERFERENCE Abnormal (applies to non-numeric results) NEGATIVE Alanine Aminotransferase (ALT/SGPT) April 12, 2025 4:45am April 12, 2025 4:45am 13 U/L Below low normal 14-59 Mean Corpuscular Volume April 12, 2025 4:45am April 12, 2025 4:45am 107.1 fL Above highnormal 81.0-99.0 Alanine Aminotransferase (ALT/SGPT) April 13, 2025 4:41am April 13, 2025 4:41am 18 U/L 14-59 Mean Corpuscular Volume April 13, 2025 4:41am April 13, 2025 4:41am 106.2 fL Above high normal 81.0-99.0 Chloride Level April 14, 2025 4:28am April 14, 2025 4:28am 101 mmol/L 98-107 Chloride Level April 15, 2025 4:58am April 15, 2025 4:58am 102 mmol/L 98-107 Urine Bilirubin May 02, 2025 1:40am NEGATIVE NEGATIVE Chloride Level May 02, 2025 9:15am May 02, 2025 9:15am 91 mmol/L Below low normal 98-107 Hematocrit May 02, 2025 9:15am May 02, 2025 9:15am 32.3 % Below low normal 36.0-48.0 Alanine Aminotransferase (ALT/SGPT) May 03, 2025 4:39am May 03, 2025 4:39am 14 U/L 14-59 Hematocrit May 03, 2025 4:39am May 03, 2025 4:39am 28.8 % Below low normal 36.0-48.0 Alanine Aminotransferase (ALT/SGPT) May 04, 2025 5:10am May 04, 2025 5:10am 11 U/L Below low normal 14-59 Hematocrit May 04, 2025 5:10am May 04, 2025 5:10am 29.1 % Below low normal 36.0-48.0 Alanine Aminotransferase (ALT/SGPT) May 05, 2025 4:37am May 05, 2025 4:37am 11 U/L Below low normal 14-59 Hematocrit May 05, 2025 4:37am May 05, 2025 4:37am 29.0 % Below low normal 36.0-48.0 Alanine Aminotransferase (ALT/SGPT) May 06, 2025 4:33am May 06, 2025 4:33am 9 U/L Belowlow normal 14-59 Hematocrit May 06, 2025 4:33am May 06, 2025 4:33am 29.4 % Below low normal 36.0-48.0 Chloride Level May 07, 2025 5:11am May 07, 2025 5:11am 95 mmol/L Below low normal 98-107 Chloride Level May 08, 2025 9:54am May 08, 2025 9:54am 92 mmol/L Below low normal 98-107 Hematocrit May 08, 2025 9:54am May 08, 2025 9:54am 28.3 % Below low normal 36.0-48.0 Oxygen Delivery Device May 08, 2025 2:48pm May 08, 2025 2:48pm NASAL CANNULA Alanine Aminotransferase (ALT/SGPT) May 21, 2025 10:42am May 21, 2025 10:42am 13 U/L Below low normal 14-59 Hematocrit May 21, 2025 10:42am May 21, 2025 10:42am 30.0 % Below low normal 36.0-48.0 Urine Bilirubin May 21, 2025 12:13pm SMALL Abnormal (applies to non- numeric results) NEGATIVE Carbon Dioxide Level April 07, 2025 1:00pm April 07, 2025 1:00pm 30.3 mmol/L 21.0-32.0 Hemoglobin April 07, 2025 1:00pm April 07, 2025 1:00pm 10.0 g/dL Below low normal 12.0-16.0 Carbon Dioxide Level April 11, 2025 8:36am April 11, 2025 8:36am 29.1 mmol/L 21.0-32.0 Hemoglobin April 11, 2025 8:36am April 11, 2025 8:36am 10.7 g/dL Below low normal 12.0-16.0 Urine Occult Blood April 11, 2025 9:20am COLOR INTERFERENCE Abnormal (applies to non-numeric results) NEGATIVE Aspartate Amino Transf (AST/SGOT) April 12, 2025 4:45am April 12, 2025 4:45am 14 U/L Below low normal 15-37 Mean Platelet Volume April 12, 2025 4:45am April 12, 2025 4:45am 11.1 fL 9.5-13.5 Aspartate Amino Transf (AST/SGOT) April 13, 2025 4:41am April 13, 2025 4:41am 15 U/L 15-37 Mean Platelet Volume April 13, 2025 4:41am April 13, 2025 4:41am 11.2 fL 9.5-13.5 Carbon Dioxide Level April 14, 2025 4:28am April 14, 2025 4:28am 27.4 mmol/L 21.0-32.0 Carbon Dioxide Level April 15, 2025 4:58am April 15, 2025 4:58am 31.2 mmol/L 21.0-32.0 Urine Occult Blood May 02, 2025 1:40am MODERATE Abnormal (applies to non- numeric results) NEGATIVE Carbon Dioxide Level May 02, 2025 9:15am May 02, 2025 9:15am 28.3 mmol/L 21.0-32.0 Hemoglobin May 02, 2025 9:15am May 02, 2025 9:15am 9.9 g/dL Below low normal 12.0-16.0 Aspartate Amino Transf (AST/SGOT) May 03, 2025 4:39am May 03, 2025 4:39am 11 U/L Below low normal 15-37 Hemoglobin May 03, 2025 4:39am May 03, 2025 4:39am 9.0 g/dL Below low normal 12.0-16.0 Aspartate Amino Transf (AST/SGOT) May 04, 2025 5:10am May 04, 2025 5:10am 12 U/L Below low normal 15-37 Hemoglobin May 04, 2025 5:10am May 04, 2025 5:10am 9.1 g/dL Below low normal 12.0-16.0 Aspartate Amino Transf (AST/SGOT) May 05, 2025 4:37am May 05, 2025 4:37am 14 U/L Below low normal 15-37 Hemoglobin May 05, 2025 4:37am May 05, 2025 4:37am 9.0 g/dL Below low normal 12.0-16.0 Aspartate Amino Transf (AST/SGOT) May 06, 2025 4:33am May 06, 2025 4:33am 11 U/L Below low normal 15-37 Hemoglobin May 06, 2025 4:33am May 06, 2025 4:33am 9.0 g/dL Below low normal 12.0-16.0 Carbon Dioxide Level May 07, 2025 5:11am May 07, 2025 5:11am 34.6 mmol/L Above high normal 21.0-32.0 Carbon Dioxide Level May 08, 2025 9:54am May 08, 2025 9:54am 34.3 mmol/L Above high normal 21.0-32.0 Hemoglobin May 08, 2025 9:54am May 08, 2025 9:54am 8.6 g/dL Below low normal 12.0-16.0 Arterial Blood Oxygen Saturation May 08, 2025 2:48pm May 08, 2025 2:48pm 91.7 % Aspartate Amino Transf (AST/SGOT) May 21, 2025 10:42am May 21, 2025 10:42am 11 U/L Below low normal 15-37 Hemoglobin May 21, 2025 10:42am May 21, 2025 10:42am 9.0 g/dL Below low normal 12.0-16.0 Urine Occult Blood May 21, 2025 12:13pm LARGE Abnormal (applies to non- numeric results) NEGATIVE Creatinine April 07, 2025 1:00pm April 07, 2025 1:00pm 1.86 mg/dL Above high normal 0.55-1.02 Immature Granulocyte # (Auto) April 07, 2025 1:00pm April 07, 2025 1:00pm 0.05 10 3/uL Above high normal 0.00-0.03 Creatinine April 11, 2025 8:36am April 11, 2025 8:36am 3.07 mg/dL Above high normal 0.55-1.02 Immature Granulocyte # (Auto) April 11, 2025 8:36am April 11, 2025 8:36am 0.02 10 3/uL 0.00-0.03 Urine Appearance April 11, 2025 9:20am CLOUDY Abnormal (applies to non- numeric results) CLEAR BUN/Creatinine Ratio April 12, 2025 4:45am April 12, 2025 4:45am 16.6 Platelet Count April 12, 2025 4:45am April 12, 2025 4:45am 169 10 3/uL 150-450 BUN/Creatinine Ratio April 13, 2025 4:41am April 13, 2025 4:41am 18.7 Platelet Count April 13, 2025 4:41am April 13, 2025 4:41am 212 10 3/uL 150-450 Creatinine April 14, 2025 4:28am April 14, 2025 4:28am 2.81 mg/dL Above high normal 0.55-1.02 Creatinine April 15, 2025 4:58am April 15, 2025 4:58am 2.76 mg/dL Above high normal 0.55-1.02 Urine Appearance May 02, 2025 1:40am CLEAR CLEAR Creatinine May 02, 2025 9:15am May 02, 2025 9:15am 2.08 mg/dL Above high normal 0.55-1.02 Immature Granulocyte # (Auto) May 02, 2025 9:15am May 02, 2025 9:15am 0.04 10 3/uL Above high normal 0.00-0.03 BUN/Creatinine Ratio May 03, 2025 4:39am May 03, 2025 4:39am 39.0 Immature Granulocyte # (Auto) May 03, 2025 4:39am May 03, 2025 4:39am 0.02 10 3/uL 0.00-0.03 BUN/Creatinine Ratio May 04, 2025 5:10am May 04, 2025 5:10am 39.0 Immature Granulocyte # (Auto) May 04, 2025 5:10am May 04, 2025 5:10am 0.02 10 3/uL 0.00-0.03 BUN/Creatinine Ratio May 05, 2025 4:37am May 05, 2025 4:37am 35.3 Immature Granulocyte # (Auto) May 05, 2025 4:37am May 05, 2025 4:37am 0.03 10 3/uL 0.00-0.03 BUN/Creatinine Ratio May 06, 2025 4:33am May 06, 2025 4:33am 33.0 Immature Granulocyte # (Auto) May 06, 2025 4:33am May 06, 2025 4:33am 0.05 10 3/uL Above high normal 0.00-0.03 Creatinine May 07, 2025 5:11am May 07, 2025 5:11am 1.97 mg/dL Above high normal 0.55-1.02 Creatinine May 08, 2025 9:54am May 08, 2025 9:54am 2.02 mg/dL Above high normal 0.55-1.02 Immature Granulocyte # (Auto) May 08, 2025 9:54am May 08, 2025 9:54am 0.05 10 3/uL Above high normal 0.00-0.03 Arterial Blood Partial Pressure CO2 May 08, 2025 2:48pm May 08, 2025 2:48pm 62.0 mm[Hg]Above upper panic limits 35.0-45.0 RESULTS CALLED TO AIDA KAMANN, RN at 1558 BUN/Creatinine Ratio May 21, 2025 10:42am May 21, 2025 10:42am 27.3 Immature Granulocyte # (Auto) May 21, 2025 10:42am May 21, 2025 10:42am 0.03 10 3/uL 0.00-0.03 Urine Appearance May 21, 2025 12:13pm CLEAR CLEAR Estimated GFR () April 07, 2025 1:00pm April 07, 2025 1:00pm 32 Below low normal >=60 mL/min/1.73m 2 Immature Granulocyte % (Auto) April 07, 2025 1:00pm April 07, 2025 1:00pm 0.5 % 0.0-0.5 Estimated GFR () April 11, 2025 8:36am April 11, 2025 8:36am 18 Below low normal >=60 mL/min/1.73m 2 Immature Granulocyte % (Auto) April 11, 2025 8:36am April 11, 2025 8:36am 0.2 % 0.0-0.5 Urine Color April 11, 2025 9:20am DK RED Abnormal (applies to non-numeric results) YELLOW Blood Urea Nitrogen April 12, 2025 4:45am April 12, 2025 4:45am 53.0 mg/dL Above high normal 7.0-18.0 Red Blood Count April 12, 2025 4:45am April 12, 2025 4:45am 2.52 10 6/uL Below low normal 4.20-5.40 Blood Urea Nitrogen April 13, 2025 4:41am April 13, 2025 4:41am 60.0 mg/dL Above high normal 7.0-18.0 Red Blood Count April 13, 2025 4:41am April 13, 2025 4:41am 2.90 10 6/uL Below low normal 4.20-5.40 Estimated GFR () April 14, 2025 4:28am April 14, 2025 4:28am 20 Below low normal >=60 mL/min/1.73m 2 Estimated GFR () April 15, 2025 4:58am April 15, 2025 4:58am 20 Below low normal >=60 mL/min/1.73m 2 Urine Color May 02, 2025 1:40am LT. YELLOW YELLOW Estimated GFR () May 02, 2025 9:15am May 02, 2025 9:15am 28 Below low normal >=60 mL/min/1.73m 2 Immature Granulocyte % (Auto) May 02, 2025 9:15am May 02, 2025 9:15am 0.4 % 0.0-0.5 Blood Urea Nitrogen May 03, 2025 4:39am May 03, 2025 4:39am 73.0 mg/dL Above high normal 7.0-18.0 Immature Granulocyte % (Auto) May 03, 2025 4:39am May 03, 2025 4:39am 0.3 % 0.0-0.5 Blood Urea Nitrogen May 04, 2025 5:10am May 04, 2025 5:10am 71.0 mg/dL Above high normal 7.0-18.0 Immature Granulocyte % (Auto) May 04, 2025 5:10am May 04, 2025 5:10am 0.3 % 0.0-0.5 Blood Urea Nitrogen May 05, 2025 4:37am May 05, 2025 4:37am 61.0 mg/dL Above high normal 7.0-18.0 Immature Granulocyte % (Auto) May 05, 2025 4:37am May 05, 2025 4:37am 0.4 % 0.0-0.5 Blood Urea Nitrogen May 06, 2025 4:33am May 06, 2025 4:33am 59.0 mg/dL Above high normal 7.0-18.0 Immature Granulocyte % (Auto) May 06, 2025 4:33am May 06, 2025 4:33am 0.7 % Above high normal 0.0-0.5 Estimated GFR () May 07, 2025 5:11am May 07, 2025 5:11am 30 Below low normal >=60 mL/min/1.73m 2 Estimated GFR () May 08, 2025 9:54am May 08, 2025 9:54am 29 Below low normal >=60 mL/min/1.73m 2 Immature Granulocyte % (Auto) May 08, 2025 9:54am May 08, 2025 9:54am 0.6 % Above high normal 0.0-0.5 Arterial Blood pH May 08, 2025 2:48pm May 08, 2025 2:48pm 7.370 7.350-7.450 Blood Urea Nitrogen May 21, 2025 10:42am May 21, 2025 10:42am 51.0 mg/dL Above high normal 7.0-18.0 Immature Granulocyte % (Auto) May 21, 2025 10:42am May 21, 2025 10:42am 0.4 % 0.0-0.5 Urine Color May 21, 2025 12:13pm BROWN Abnormal (applies to non-numeric results) YELLOW Estimated GFR (Non- April 07, 2025 1:00pm April 07, 2025 1:00pm 26 Below low normal >=60 mL/min/1.73m 2 Lymphocytes # (Auto) April 07, 2025 1:00pm April 07, 2025 1:00pm 1.2 10 3/uL 1.2-3.8 Estimated GFR (Non- April 11, 2025 8:36am April 11, 2025 8:36am 15 Below low normal >=60 mL/min/1.73m 2 Lymphocytes # (Auto) April 11, 2025 8:36am April 11, 2025 8:36am 1.3 10 3/uL 1.2-3.8 Urine Glucose (UA) April 11, 2025 9:20am COLOR INTERFERENCE mg/dL Abnormal (applies to non-numeric results) NEGATIVE Calcium Level April 12, 2025 4:45am April 12, 2025 4:45am 8.3 mg/dL Below low normal 8.5-10.1 Red Cell Distribution Width April 12, 2025 4:45am April 12, 2025 4:45am 17.0 % Above high normal 11.0-15.0 Calcium Level April 13, 2025 4:41am April 13, 2025 4:41am 8.9 mg/dL 8.5-10.1 Red Cell Distribution Width April 13, 2025 4:41am April 13, 2025 4:41am 16.4 % Above high normal 11.0-15.0 Estimated GFR (Non- April 14, 2025 4:28am April 14, 2025 4:28am 16 Below low normal >=60 mL/min/1.73m 2 Estimated GFR (Non- April 15, 2025 4:58am April 15, 2025 4:58am 17 Below low normal >=60 mL/min/1.73m 2 Urine Glucose (UA) May 02, 2025 1:40am NEGATIVE mg/dL NEGATIVE Estimated GFR (Non- May 02, 2025 9:15am May 02, 2025 9:15am 23 Below low normal >=60 mL/min/1.73m 2 Lymphocytes # (Auto) May 02, 2025 9:15am May 02, 2025 9:15am 1.5 10 3/uL 1.2-3.8 Calcium Level May 03, 2025 4:39am May 03, 2025 4:39am 9.1 mg/dL 8.5-10.1 Lymphocytes # (Auto) May 03, 2025 4:39am May 03, 2025 4:39am 1.4 10 3/uL 1.2-3.8 Calcium Level May 04, 2025 5:10am May 04, 2025 5:10am 9.4 mg/dL 8.5-10.1 Lymphocytes # (Auto) May 04, 2025 5:10am May 04, 2025 5:10am 1.4 10 3/uL 1.2-3.8 Calcium Level May 05, 2025 4:37am May 05, 2025 4:37am 9.2 mg/dL 8.5-10.1 Lymphocytes # (Auto) May 05, 2025 4:37am May 05, 2025 4:37am 1.8 10 3/uL 1.2-3.8 Calcium Level May 06, 2025 4:33am May 06, 2025 4:33am 9.2 mg/dL 8.5-10.1 Lymphocytes # (Auto) May 06, 2025 4:33am May 06, 2025 4:33am 1.7 10 3/uL 1.2-3.8 Estimated GFR (Non- May 07, 2025 5:11am May 07, 2025 5:11am 24 Below low normal >=60 mL/min/1.73m 2 Estimated GFR (Non- May 08, 2025 9:54am May 08, 2025 9:54am 24 Below low normal >=60 mL/min/1.73m 2 Lymphocytes # (Auto) May 08, 2025 9:54am May 08, 2025 9:54am 1.7 10 3/uL 1.2-3.8 Arterial Blood Partial Pressure O2 May 08, 2025 2:48pm May 08, 2025 2:48pm 59.6 mm[Hg] Below lower panic limits 80.0-100.0 RESULTS CALLED TO AIDA BAER RN at 1558 Calcium Level May 21, 2025 10:42am May 21, 2025 10:42am 9.3 mg/dL 8.5-10.1 Lymphocytes # (Auto) May 21, 2025 10:42am May 21, 2025 10:42am 1.7 10 3/uL 1.2-3.8 Urine Glucose (UA) May 21, 2025 12:13pm NEGATIVE mg/dL NEGATIVE Glucose Level April 07, 2025 1:00pm April 07, 2025 1:00pm 211 mg/dL Above high normal 74-106 Lymphocytes (%) (Auto) April 07, 2025 1:00pm April 07, 2025 1:00pm 13.4 % Below low normal 20.5-60.0 Glucose Level April 11, 2025 8:36am April 11, 2025 8:36am 132 mg/dL Above high normal 74-106 Lymphocytes (%) (Auto) April 11, 2025 8:36am April 11, 2025 8:36am 15.5 % Below low normal 20.5-60.0 Urine Ketones April 11, 2025 9:20am COLOR INTERFERENCE mg/dL Abnormal (applies to non-numericresults) NEGATIVE Chloride Level April 12, 2025 4:45am April 12, 2025 4:45am 99 mmol/L 98-107 Corrected White Blood Count April 12, 2025 4:45am April 12, 2025 4:45am 7.2 10 3/uL 4.0-11.0 Chloride Level April 13, 2025 4:41am April 13, 2025 4:41am 99 mmol/L 98-107 Corrected White Blood Count April 13, 2025 4:41am April 13, 2025 4:41am 5.4 10 3/uL 4.0-11.0 Glucose Level April 14, 2025 4:28am April 14, 2025 4:28am 206 mg/dL Above high normal 74-106 Glucose Level April 15, 2025 4:58am April 15, 2025 4:58am 191 mg/dL Above high normal 74-106 Urine Ketones May 02, 2025 1:40am NEGATIVE mg/dL NEGATIVE Glucose Level May 02, 2025 9:15am May 02, 2025 9:15am 182 mg/dL Above high normal 74-106 Lymphocytes (%) (Auto) May 02, 2025 9:15am May 02, 2025 9:15am 15.2 % Below low normal 20.5-60.0 Chloride Level May 03, 2025 4:39am May 03, 2025 4:39am 93 mmol/L Below low normal 98-107 Lymphocytes (%) (Auto) May 03, 2025 4:39am May 03, 2025 4:39am 18.3 % Below low normal 20.5-60.0 Chloride Level May 04, 2025 5:10am May 04, 2025 5:10am 95 mmol/L Below low normal 98-107 Lymphocytes (%) (Auto) May 04, 2025 5:10am May 04, 2025 5:10am 21.0 % 20.5-60.0 Chloride Level May 05, 2025 4:37am May 05, 2025 4:37am 95 mmol/L Below low normal 98-107 Lymphocytes (%) (Auto) May 05, 2025 4:37am May 05, 2025 4:37am 25.5 % 20.5-60.0 Chloride Level May 06, 2025 4:33am May 06, 2025 4:33am 94 mmol/L Below low normal 98-107 Lymphocytes (%) (Auto) May 06, 2025 4:33am May 06, 2025 4:33am 22.7 % 20.5-60.0 Glucose Level May 07, 2025 5:11am May 07, 2025 5:11am 145 mg/dL Above high normal 74-106 Glucose Level May 08, 2025 9:54am May 08, 2025 9:54am 157 mg/dL Above high normal 74-106 Lymphocytes (%) (Auto) May 08, 2025 9:54am May 08, 2025 9:54am 19.6 % Below low normal 20.5-60.0 Blood Gas Sample Site May 08, 2025 2:48pm May 08, 2025 2:48pm RT RADIAL Chloride Level May 21, 2025 10:42am May 21, 2025 10:42am 95 mmol/L Below low normal 98-107 Lymphocytes (%) (Auto) May 21, 2025 10:42am May 21, 2025 10:42am 21.9 % 20.5-60.0 Urine Ketones May 21, 2025 12:13pm TRACE mg/dL Abnormal (applies to non- numeric results) NEGATIVE Potassium Level April 07, 2025 1:00pm April 07, 2025 1:00pm 4.7 mmol/L 3.5-5.1 Mean Corpuscular Hemoglobin April 07, 2025 1:00pm April 07, 2025 1:00pm 32.3 pg 26.7-34.0 Potassium Level April 11, 2025 8:36am April 11, 2025 8:36am 4.9 mmol/L 3.5-5.1 Mean Corpuscular Hemoglobin April 11, 2025 8:36am April 11, 2025 8:36am 32.0 pg 26.7-34.0 Urine Leukocyte Esterase April 11, 2025 9:20am COLOR INTERFERENCE Abnormal (applies to non-numeric results) NEGATIVE Carbon Dioxide Level April 12, 2025 4:45am April 12, 2025 4:45am 29.6 mmol/L 21.0-32.0 Carbon Dioxide Level April 13, 2025 4:41am April 13, 2025 4:41am 30.1 mmol/L 21.0-32.0 Potassium Level April 14, 2025 4:28am April 14, 2025 4:28am 5.2 mmol/L Above high normal 3.5-5.1 Potassium Level April 15, 2025 4:58am April 15, 2025 4:58am 5.0 mmol/L 3.5-5.1 Urine Leukocyte Esterase May 02, 2025 1:40am LARGE Abnormal (applies to non-numeric results) NEGATIVE Potassium Level May 02, 2025 9:15am May 02, 2025 9:15am 5.2 mmol/L Above high normal 3.5-5.1 Mean Corpuscular Hemoglobin May 02, 2025 9:15am May 02, 2025 9:15am 31.1 pg 26.7-34.0 Carbon Dioxide Level May 03, 2025 4:39am May 03, 2025 4:39am 27.6 mmol/L 21.0-32.0 Mean Corpuscular Hemoglobin May 03, 2025 4:39am May 03, 2025 4:39am 31.0 pg 26.7-34.0 Carbon Dioxide Level May 04, 2025 5:10am May 04, 2025 5:10am 32.4 mmol/L Above high normal 21.0-32.0 Mean Corpuscular Hemoglobin May 04, 2025 5:10am May 04, 2025 5:10am 31.1 pg 26.7-34.0 Carbon Dioxide Level May 05, 2025 4:37am May 05, 2025 4:37am 32.9 mmol/L Above high normal 21.0-32.0 Mean Corpuscular Hemoglobin May 05, 2025 4:37am May 05, 2025 4:37am 31.1 pg 26.7-34.0 Carbon Dioxide Level May 06, 2025 4:33am May 06, 2025 4:33am 33.4 mmol/L Above high normal 21.0-32.0 Mean Corpuscular Hemoglobin May 06, 2025 4:33am May 06, 2025 4:33am 31.1 pg 26.7-34.0 Potassium Level May 07, 2025 5:11am May 07, 2025 5:11am 4.3 mmol/L 3.5-5.1 Potassium Level May 08, 2025 9:54am May 08, 2025 9:54am 4.1 mmol/L 3.5-5.1 Mean Corpuscular Hemoglobin May 08, 2025 9:54am May 08, 2025 9:54am 30.9 pg 26.7-34.0 Carbon Dioxide Level May 21, 2025 10:42am May 21, 2025 10:42am 37.3 mmol/L Above high normal 21.0-32.0 Mean Corpuscular Hemoglobin May 21, 2025 10:42am May 21, 2025 10:42am 30.5 pg 26.7-34.0 Urine Leukocyte Esterase May 21, 2025 12:13pm MODERATE Abnormal (applies to non-numeric results) NEGATIVE Sodium Level April 07, 2025 1:00pm April 07, 2025 1:00pm 136 mmol/L 136-145 Mean Corpuscular Hemoglobin Concent April 07, 2025 1:00pm April 07, 2025 1:00pm 29.6 g/dL Below low normal 29.9-35.2 Sodium Level April 11, 2025 8:36am April 11, 2025 8:36am 138 mmol/L 136-145 Mean Corpuscular Hemoglobin Concent April 11, 2025 8:36am April 11, 2025 8:36am 29.5 g/dL Below low normal 29.9-35.2 Urine Mucus April 11, 2025 9:20am NONE SEEN NONE SEEN Creatinine April 12, 2025 4:45am April 12, 2025 4:45am 3.20 mg/dL Above high normal 0.55-1.02 Creatinine April 13, 2025 4:41am April 13, 2025 4:41am 3.21 mg/dL Above high normal 0.55-1.02 Sodium Level April 14, 2025 4:28am April 14, 2025 4:28am 137 mmol/L 136-145 Sodium Level April 15, 2025 4:58am April 15, 2025 4:58am 139 mmol/L 136-145 Urine Mucus May 02, 2025 1:40am NONE SEEN NONE SEEN Sodium Level May 02, 2025 9:15am May 02, 2025 9:15am 129 mmol/L Below low normal 136-145 Mean Corpuscular Hemoglobin Concent May 02, 2025 9:15am May 02, 2025 9:15am 30.7 g/dL 29.9-35.2 Creatinine May 03, 2025 4:39am May 03, 2025 4:39am 1.87 mg/dL Above high normal 0.55-1.02 Mean Corpuscular Hemoglobin Concent May 03, 2025 4:39am May 03, 2025 4:39am 31.3 g/dL 29.9-35.2 Creatinine May 04, 2025 5:10am May 04, 2025 5:10am 1.82 mg/dL Above high normal 0.55-1.02 Mean Corpuscular Hemoglobin Concent May 04, 2025 5:10am May 04, 2025 5:10am 31.3 g/dL 29.9-35.2 Creatinine May 05, 2025 4:37am May 05, 2025 4:37am 1.73 mg/dL Above high normal 0.55-1.02 Mean Corpuscular Hemoglobin Concent May 05, 2025 4:37am May 05, 2025 4:37am 31.0 g/dL 29.9-35.2 Creatinine May 06, 2025 4:33am May 06, 2025 4:33am 1.79 mg/dL Above high normal 0.55-1.02 Mean Corpuscular Hemoglobin Concent May 06, 2025 4:33am May 06, 2025 4:33am 30.6 g/dL 29.9-35.2 Sodium Level May 07, 2025 5:11am May 07, 2025 5:11am 135 mmol/L Below low normal 136-145 Sodium Level May 08, 2025 9:54am May 08, 2025 9:54am 134 mmol/L Below low normal 136-145 Mean Corpuscular Hemoglobin Concent May 08, 2025 9:54am May 08, 2025 9:54am 30.4 g/dL 29.9-35.2 Creatinine May 21, 2025 10:42am May 21, 2025 10:42am 1.87 mg/dL Above high normal 0.55-1.02 Mean Corpuscular Hemoglobin Concent May 21, 2025 10:42am May 21, 2025 10:42am 30.0 g/dL29.9-35.2 Urine Mucus May 21, 2025 12:13pm NONE SEEN NONE SEEN Mean Corpuscular Volume April 07, 2025 1:00pm April 07, 2025 1:00pm 109.0 fL Above highnormal 81.0-99.0 1+ Macrocytosis Present Mean Corpuscular Volume April 11, 2025 8:36am April 11, 2025 8:36am 108.7 fL Above highnormal 81.0-99.0 1+ Macrocytosis Present Urine Nitrite April 11, 2025 9:20am COLOR INTERFERENCE Abnormal (applies to non-numeric results) NEGATIVE Estimated GFR () April 12, 2025 4:45am April 12, 2025 4:45am 17 Below low normal >=60 mL/min/1.73m 2 Estimated GFR () April 13, 2025 4:41am April 13, 2025 4:41am 17 Below low normal >=60 mL/min/1.73m 2 Urine Nitrite May 02, 2025 1:40am POSITIVE Abnormal (applies to non- numeric results) NEGATIVE Mean Corpuscular Volume May 02, 2025 9:15am May 02, 2025 9:15am 101.6 fL Above high normal 81.0-99.0 Estimated GFR () May 03, 2025 4:39am May 03, 2025 4:39am 31 Below low normal >=60 mL/min/1.73m 2 Mean Corpuscular Volume May 03, 2025 4:39am May 03, 2025 4:39am 99.3 fL Above high normal 81.0-99.0 Estimated GFR () May 04, 2025 5:10am May 04, 2025 5:10am 32 Below low normal >=60 mL/min/1.73m 2 Mean Corpuscular Volume May 04, 2025 5:10am May 04, 2025 5:10am 99.3 fL Above high normal 81.0-99.0 Estimated GFR () May 05, 2025 4:37am May 05, 2025 4:37am 34 Below low normal >=60 mL/min/1.73m 2 Mean Corpuscular Volume May 05, 2025 4:37am May 05, 2025 4:37am 100.3 fL Above high normal 81.0-99.0 Estimated GFR () May 06, 2025 4:33am May 06, 2025 4:33am 33 Below low normal >=60 mL/min/1.73m 2 Mean Corpuscular Volume May 06, 2025 4:33am May 06, 2025 4:33am 101.7 fL Above high normal 81.0-99.0 Mean Corpuscular Volume May 08, 2025 9:54am May 08, 2025 9:54am 101.8 fL Above high normal 81.0-99.0 Estimated GFR () May 21, 2025 10:42am May 21, 2025 10:42am 31 Below lownormal >=60 mL/min/1.73m 2 Mean Corpuscular Volume May 21, 2025 10:42am May 21, 2025 10:42am 101.7 fL Above high normal 81.0-99.0 Urine Nitrite May 21, 2025 12:13pm NEGATIVE NEGATIVE Monocytes # (Auto) April 07, 2025 1:00pm April 07, 2025 1:00pm 0.6 10 3/uL 0.3-0.8 Monocytes # (Auto) April 11, 2025 8:36am April 11, 2025 8:36am 0.8 10 3/uL 0.3-0.8 Urine pH April 11, 2025 9:20am COLOR INTERFERENCE Abnormal (applies to non-numeric results) 5.0-9.0 Estimated GFR (Non- April 12, 2025 4:45am April 12, 2025 4:45am 14 Below low normal >=60 mL/min/1.73m 2 Estimated GFR (Non- April 13, 2025 4:41am April 13, 2025 4:41am 14 Below low normal >=60 mL/min/1.73m 2 Urine pH May 02, 2025 1:40am 6.0 5.0-9.0 Monocytes # (Auto) May 02, 2025 9:15am May 02, 2025 9:15am 0.5 10 3/uL 0.3-0.8 Estimated GFR (Non- May 03, 2025 4:39am May 03, 2025 4:39am 26 Below low normal >=60 mL/min/1.73m 2 Monocytes # (Auto) May 03, 2025 4:39am May 03, 2025 4:39am 0.6 10 3/uL 0.3-0.8 Estimated GFR (Non- May 04, 2025 5:10am May 04, 2025 5:10am 27 Below low normal >=60 mL/min/1.73m 2 Monocytes # (Auto) May 04, 2025 5:10am May 04, 2025 5:10am 0.6 10 3/uL 0.3-0.8 Estimated GFR (Non- May 05, 2025 4:37am May 05, 2025 4:37am 28 Below low normal >=60 mL/min/1.73m 2 Monocytes # (Auto) May 05, 2025 4:37am May 05, 2025 4:37am 0.5 10 3/uL 0.3-0.8 Estimated GFR (Non- May 06, 2025 4:33am May 06, 2025 4:33am 27 Below low normal >=60 mL/min/1.73m 2 Monocytes # (Auto) May 06, 2025 4:33am May 06, 2025 4:33am 0.5 10 3/uL 0.3-0.8 Monocytes # (Auto) May 08, 2025 9:54am May 08, 2025 9:54am 0.6 10 3/uL 0.3-0.8 Estimated GFR (Non- May 21, 2025 10:42am May 21, 2025 10:42am 26 Below low normal >=60 mL/min/1.73m 2 Monocytes # (Auto) May 21, 2025 10:42am May 21, 2025 10:42am 0.6 10 3/uL 0.3-0.8 Urine pH May 21, 2025 12:13pm 7.5 5.0-9.0 Monocytes (%) (Auto) April 07, 2025 1:00pm April 07, 2025 1:00pm 6.0 % 1.7-12.0 Monocytes (%) (Auto) April 11, 2025 8:36am April 11, 2025 8:36am 9.3 % 1.7-12.0 Urine Protein April 11, 2025 9:20am COLOR INTERFERENCE mg/dL Abnormal (applies to non-numericresults) NEG/TRACE Globulin April 12, 2025 4:45am April 12, 2025 4:45am 3.9 g/dL Globulin April 13, 2025 4:41am April 13, 2025 4:41am 4.3 g/dL Urine Protein May 02, 2025 1:40am 100 mg/dL Abnormal (applies to non- numeric results) NEG/TRACE Monocytes (%) (Auto) May 02, 2025 9:15am May 02, 2025 9:15am 4.8 % 1.7-12.0 Globulin May 03, 2025 4:39am May 03, 2025 4:39am 4.4 g/dL Monocytes (%) (Auto) May 03, 2025 4:39am May 03, 2025 4:39am 8.2 % 1.7-12.0 Globulin May 04, 2025 5:10am May 04, 2025 5:10am 4.1 g/dL Monocytes (%) (Auto) May 04, 2025 5:10am May 04, 2025 5:10am 8.7 % 1.7-12.0 Globulin May 05, 2025 4:37am May 05, 2025 4:37am 4.0 g/dL Monocytes (%) (Auto) May 05, 2025 4:37am May 05, 2025 4:37am 7.8 % 1.7-12.0 Globulin May 06, 2025 4:33am May 06, 2025 4:33am 3.9 g/dL Monocytes (%) (Auto) May 06, 2025 4:33am May 06, 2025 4:33am 7.1 % 1.7-12.0 Monocytes (%) (Auto) May 08, 2025 9:54am May 08, 2025 9:54am 6.3 % 1.7-12.0 Globulin May 21, 2025 10:42am May 21, 2025 10:42am 3.9 g/dL Monocytes (%) (Auto) May 21, 2025 10:42am May 21, 2025 10:42am 7.8 % 1.7-12.0 Urine Protein May 21, 2025 12:13pm >=300 mg/dL Abnormal (applies to non- numeric results) NEG/TRACE Mean Platelet Volume April 07, 2025 1:00pm April 07, 2025 1:00pm 10.9 fL 9.5-13.5 Mean Platelet Volume April 11, 2025 8:36am April 11, 2025 8:36am 9.8 fL 9.5-13.5 Urine RBC April 11, 2025 9:20am >100 #/HPF Abnormal (applies to non- numeric results) 0-2 Glucose Level April 12, 2025 4:45am April 12, 2025 4:45am 214 mg/dL Above high normal 74-106 Glucose Level April 13, 2025 4:41am April 13, 2025 4:41am 230 mg/dL Above high normal 74-106 Urine RBC May 02, 2025 1:40am NONE SEEN #/HPF 0-2 Mean Platelet Volume May 02, 2025 9:15am May 02, 2025 9:15am 11.4 fL 9.5-13.5 Glucose Level May 03, 2025 4:39am May 03, 2025 4:39am 126 mg/dL Above high normal 74-106 Mean Platelet Volume May 03, 2025 4:39am May 03, 2025 4:39am 10.9 fL 9.5-13.5 Glucose Level May 04, 2025 5:10am May 04, 2025 5:10am 71 mg/dL Below low normal 74-106 Mean Platelet Volume May 04, 2025 5:10am May 04, 2025 5:10am 10.7 fL 9.5-13.5 Glucose Level May 05, 2025 4:37am May 05, 2025 4:37am 77 mg/dL 74-106 Mean Platelet Volume May 05, 2025 4:37am May 05, 2025 4:37am 10.8 fL 9.5-13.5 Glucose Level May 06, 2025 4:33am May 06, 2025 4:33am 177 mg/dL Above high normal 74-106 Mean Platelet Volume May 06, 2025 4:33am May 06, 2025 4:33am 10.8 fL 9.5-13.5 Mean Platelet Volume May 08, 2025 9:54am May 08, 2025 9:54am 11.0 fL 9.5-13.5 Glucose Level May 21, 2025 10:42am May 21, 2025 10:42am 246 mg/dL Above high normal 74-106 Mean Platelet Volume May 21, 2025 10:42am May 21, 2025 10:42am 11.1 fL 9.5-13.5 Urine RBC May 21, 2025 12:13pm >100 #/HPF Abnormal (applies to non-numeric results) 0-2 Neutrophils # (Auto) April 07, 2025 1:00pm April 07, 2025 1:00pm 7.2 10 3/uL Above highnormal 1.4-6.5 Neutrophils # (Auto) April 11, 2025 8:36am April 11, 2025 8:36am 6.0 10 3/uL 1.4-6.5 Urine Specific [place] April 11, 2025 9:20am 1.030 Abnormal (applies to non-numeric results) 1.005-1.025 Potassium Level April 12, 2025 4:45am April 12, 2025 4:45am 5.2 mmol/L Above high normal 3.5-5.1 Urine Specific [place] May 02, 2025 1:40am 1.015 1.005-1.025 Neutrophils # (Auto) May 02, 2025 9:15am May 02, 2025 9:15am 7.9 10 3/uL Above high normal 1.4-6.5 Potassium Level May 03, 2025 4:39am May 03, 2025 4:39am 4.5 mmol/L 3.5-5.1 Neutrophils # (Auto) May 03, 2025 4:39am May 03, 2025 4:39am 5.4 10 3/uL 1.4-6.5 Potassium Level May 04, 2025 5:10am May 04, 2025 5:10am 4.0 mmol/L 3.5-5.1 Neutrophils # (Auto) May 04, 2025 5:10am May 04, 2025 5:10am 4.7 10 3/uL 1.4-6.5 Potassium Level May 05, 2025 4:37am May 05, 2025 4:37am 3.9 mmol/L 3.5-5.1 Neutrophils # (Auto) May 05, 2025 4:37am May 05, 2025 4:37am 4.4 10 3/uL 1.4-6.5 Potassium Level May 06, 2025 4:33am May 06, 2025 4:33am 4.1 mmol/L 3.5-5.1 Neutrophils # (Auto) May 06, 2025 4:33am May 06, 2025 4:33am 5.1 10 3/uL 1.4-6.5 Neutrophils # (Auto) May 08, 2025 9:54am May 08, 2025 9:54am 6.2 10 3/uL 1.4-6.5 Potassium Level May 21, 2025 10:42am May 21, 2025 10:42am 3.9 mmol/L 3.5-5.1 Neutrophils # (Auto) May 21, 2025 10:42am May 21, 2025 10:42am 5.0 10 3/uL 1.4-6.5 Urine Specific [place] May 21, 2025 12:13pm 1.015 1.005-1.025 Neutrophils (%) (Auto) April 07, 2025 1:00pm April 07, 2025 1:00pm 78.6 % Above high normal 43.0-75.0 Neutrophils (%) (Auto) April 11, 2025 8:36am April 11, 2025 8:36am 73.0 % 43.0-75.0 Urine Squamous Epithelial Cells April 11, 2025 9:20am NONE SEEN #/LPF NONE/RARE Sodium Level April 12, 2025 4:45am April 12, 2025 4:45am 137 mmol/L 136-145 Sodium Level April 13, 2025 4:41am April 13, 2025 4:41am 135 mmol/L Below low normal 136-145 Urine Squamous Epithelial Cells May 02, 2025 1:40am FEW #/LPF Abnormal (applies to non-numeric results) NONE/RARE Neutrophils (%) (Auto) May 02, 2025 9:15am May 02, 2025 9:15am 78.8 % Above high .0-75.0 Sodium Level May 03, 2025 4:39am May 03, 2025 4:39am 129 mmol/L Below low normal 136-145 Neutrophils (%) (Auto) May 03, 2025 4:39am May 03, 2025 4:39am 71.2 % 43.0-75.0 Sodium Level May 04, 2025 5:10am May 04, 2025 5:10am 134 mmol/L Below low normal 136-145 Neutrophils (%) (Auto) May 04, 2025 5:10am May 04, 2025 5:10am 68.1 % 43.0-75.0 Sodium Level May 05, 2025 4:37am May 05, 2025 4:37am 133 mmol/L Below low normal 136-145 Neutrophils (%) (Auto) May 05, 2025 4:37am May 05, 2025 4:37am 63.9 % 43.0-75.0 Sodium Level May 06, 2025 4:33am May 06, 2025 4:33am 135 mmol/L Below low normal 136-145 Neutrophils (%) (Auto) May 06, 2025 4:33am May 06, 2025 4:33am 67.0 % 43.0-75.0 Neutrophils (%) (Auto) May 08, 2025 9:54am May 08, 2025 9:54am 71.2 % 43.0-75.0 Sodium Level May 21, 2025 10:42am May 21, 2025 10:42am 136 mmol/L 136-145 Neutrophils (%) (Auto) May 21, 2025 10:42am May 21, 2025 10:42am 64.6 % 43.0-75.0 Urine Squamous Epithelial Cells May 21, 2025 12:13pm MODERATE #/LPF Abnormal (applies to non-numeric results) NONE/RARE Platelet Count April 07, 2025 1:00pm April 07, 2025 1:00pm 225 10 3/uL 150-450 Platelet Count April 11, 2025 8:36am April 11, 2025 8:36am 192 10 3/uL 150-450 Urine Urobilinogen April 11, 2025 9:20am COLOR INTERFERENCE EU/dL Abnormal (applies to non-numeric results) 0.2-1.0 Total Bilirubin April 12, 2025 4:45am April 12, 2025 4:45am 0.3 mg/dL 0.2-1.0 Total Bilirubin April 13, 2025 4:41am April 13, 2025 4:41am 0.4 mg/dL 0.2-1.0 Urine Urobilinogen May 02, 2025 1:40am 0.2 EU/dL 0.2-1.0 Platelet Count May 02, 2025 9:15am May 02, 2025 9:15am 255 10 3/uL 150-450 Total Bilirubin May 03, 2025 4:39am May 03, 2025 4:39am 0.4 mg/dL 0.2-1.0 Platelet Count May 03, 2025 4:39am May 03, 2025 4:39am 246 10 3/uL 150-450 Total Bilirubin May 04, 2025 5:10am May 04, 2025 5:10am 0.4 mg/dL 0.2-1.0 Platelet Count May 04, 2025 5:10am May 04, 2025 5:10am 264 10 3/uL 150-450 Total Bilirubin May 05, 2025 4:37am May 05, 2025 4:37am 0.3 mg/dL 0.2-1.0 Platelet Count May 05, 2025 4:37am May 05, 2025 4:37am 266 10 3/uL 150-450 Total Bilirubin May 06, 2025 4:33am May 06, 2025 4:33am 0.3 mg/dL 0.2-1.0 Platelet Count May 06, 2025 4:33am May 06, 2025 4:33am 260 10 3/uL 150-450 Platelet Count May 08, 2025 9:54am May 08, 2025 9:54am 234 10 3/uL 150-450 Total Bilirubin May 21, 2025 10:42am May 21, 2025 10:42am 0.4 mg/dL 0.2-1.0 Platelet Count May 21, 2025 10:42am May 21, 2025 10:42am 224 10 3/uL 150-450 Urine Urobilinogen May 21, 2025 12:13pm 2.0 EU/dL Abnormal (applies to non-numeric results) 0.2-1.0 Red Blood Count April 07, 2025 1:00pm April 07, 2025 1:00pm 3.10 10 6/uL Below low normal 4.20-5.40 Red Blood Count April 11, 2025 8:36am April 11, 2025 8:36am 3.34 10 6/uL Below low normal 4.20-5.40 Urine WBC April 11, 2025 9:20am 75-100 #/HPF Abnormal (applies to non- numeric results) NONE SEEN Total Protein April 12, 2025 4:45am April 12, 2025 4:45am 6.1 g/dL Below low normal 6.4-8.2 Total Protein April 13, 2025 4:41am April 13, 2025 4:41am 6.5 g/dL 6.4-8.2 Urine WBC May 02, 2025 1:40am 20-50 #/HPF Abnormal (applies to non-numeric results) NONE SEEN Red Blood Count May 02, 2025 9:15am May 02, 2025 9:15am 3.18 10 6/uL Below low normal 4.20-5.40 Total Protein May 03, 2025 4:39am May 03, 2025 4:39am 6.6 g/dL 6.4-8.2 Red Blood Count May 03, 2025 4:39am May 03, 2025 4:39am 2.90 10 6/uL Below low normal 4.20-5.40 Total Protein May 04, 2025 5:10am May 04, 2025 5:10am 6.4 g/dL 6.4-8.2 Red Blood Count May 04, 2025 5:10am May 04, 2025 5:10am 2.93 10 6/uL Below low normal 4.20-5.40 Total Protein May 05, 2025 4:37am May 05, 2025 4:37am 6.3 g/dL Below low normal 6.4-8.2 Red Blood Count May 05, 2025 4:37am May 05, 2025 4:37am 2.89 10 6/uL Below low normal 4.20-5.40 Total Protein May 06, 2025 4:33am May 06, 2025 4:33am 6.3 g/dL Below low normal 6.4-8.2 Red Blood Count May 06, 2025 4:33am May 06, 2025 4:33am 2.89 10 6/uL Below low normal 4.20-5.40 Red Blood Count May 08, 2025 9:54am May 08, 2025 9:54am 2.78 10 6/uL Below low normal 4.20-5.40 Total Protein May 21, 2025 10:42am May 21, 2025 10:42am 6.6 g/dL 6.4-8.2 Red Blood Count May 21, 2025 10:42am May 21, 2025 10:42am 2.95 10 6/uL Below low normal4.20-5.40 Urine WBC May 21, 2025 12:13pm 10-20 #/HPF Abnormal (applies to non- numeric results) NONE SEEN Red Cell Distribution Width April 07, 2025 1:00pm April 07, 2025 1:00pm 17.3 % Above high normal 11.0-15.0 Red Cell Distribution Width April 11, 2025 8:36am April 11, 2025 8:36am 17.3 % Above high normal 11.0-15.0 Red Cell Distribution Width May 02, 2025 9:15am May 02, 2025 9:15am 15.9 % Above high normal 11.0-15.0 Red Cell Distribution Width May 03, 2025 4:39am May 03, 2025 4:39am 15.9 % Above high normal 11.0-15.0 Red Cell Distribution Width May 04, 2025 5:10am May 04, 2025 5:10am 15.9 % Above high normal 11.0-15.0 Red Cell Distribution Width May 05, 2025 4:37am May 05, 2025 4:37am 16.0 % Above high normal 11.0-15.0 Red Cell Distribution Width May 06, 2025 4:33am May 06, 2025 4:33am 16.1 % Above high normal 11.0-15.0 Red Cell Distribution Width May 08, 2025 9:54am May 08, 2025 9:54am 16.2 % Above high normal 11.0-15.0 Red Cell Distribution Width May 21, 2025 10:42am May 21, 2025 10:42am 16.6 % Above highnormal 11.0-15.0 Corrected White Blood Count April 07, 2025 1:00pm April 07, 2025 1:00pm 9.2 10 3/uL 4.0-11.0 Corrected White Blood Count April 11, 2025 8:36am April 11, 2025 8:36am 8.2 10 3/uL 4.0-11.0 Corrected White Blood Count May 02, 2025 9:15am May 02, 2025 9:15am 10.0 10 3/uL 4.0-11.0 Corrected White Blood Count May 03, 2025 4:39am May 03, 2025 4:39am 7.5 10 3/uL 4.0-11.0 Corrected White Blood Count May 04, 2025 5:10am May 04, 2025 5:10am 6.9 10 3/uL 4.0-11.0 Corrected White Blood Count May 05, 2025 4:37am May 05, 2025 4:37am 6.9 10 3/uL 4.0-11.0 Corrected White Blood Count May 06, 2025 4:33am May 06, 2025 4:33am 7.6 10 3/uL 4.0-11.0 Corrected White Blood Count May 08, 2025 9:54am May 08, 2025 9:54am 8.7 10 3/uL 4.0-11.0 Corrected White Blood Count May 21, 2025 10:42am May 21, 2025 10:42am 7.8 10 3/uL 4.0-11.0 Corrected White Blood Count April 08, 2025 5:04am April 08, 2025 5:52am 7.1 10*3/uL 3.8-11.6 [facility] [id number] [address] [facility] [address] Uncorrected WBC Count April 08, 2025 5:04am April 08, 2025 5:52am 7.1 10*3/uL 3.8-11.6 [facility] [id number] [address] [facility] [address] Red Blood Count April 08, 2025 5:04am April 08, 2025 5:52am 2.99 10*6/uL Below low normal 3.60-5.00 [facility] [id number] [address] [facility] [address] Hemoglobin April 08, 2025 5:04am April 08, 2025 5:52am 9.9 g/dL Below low normal 11.8-15.4 [facility] [id number] [address] [facility] [address] Hematocrit April 08, 2025 5:04am April 08, 2025 5:52am 30.9 % Below low normal 34.0-46.4 [facility] [id number] [address] [facility] [address] Mean Corpuscular Volume April 08, 2025 5:04am April 08, 2025 5:52am 103.5 fL Above highnormal 80-100 [facility] [id number] [address] [facility] [address] Mean Corpuscular Hemoglobin April 08, 2025 5:04am April 08, 2025 5:52am 33.1 pg 24.7-34.3 [facility] [id number] [address] [facility] [address] Mean Corpuscular Hemoglobin Concent April 08, 2025 5:04am April 08, 2025 5:52am 32.0 g/dL 32.0-35.0 [facility] [id number] [address] [facility] [address] Red Cell Distribution Width April 08, 2025 5:04am April 08, 2025 5:52am 18.3 % Above high normal 11.9-15.3 [facility] [id number] [address] [facility] [address] Platelet Count April 08, 2025 5:04am April 08, 2025 5:52am 214 10*3/uL 150-450 [facility] [id number] [address] [facility] [address] Mean Platelet Volume April 08, 2025 5:04am April 08, 2025 5:52am 8.7 fL 6.3-10.7 [facility] [id number] [address] [facility] [address] Neutrophils (%) (Auto) April 08, 2025 5:04am April 08, 2025 5:52am 69.6 % . [facility] [id number] [address] [facility] [address] Lymphocytes (%) (Auto) April 08, 2025 5:04am April 08, 2025 5:52am 17.6 % . [facility] [id number] [address] [facility] [address] Monocytes (%) (Auto) April 08, 2025 5:04am April 08, 2025 5:52am 9.5 % . [facility] [id number] [address] [facility] [address] Eosinophils (%) (Auto) April 08, 2025 5:04am April 08, 2025 5:52am 2.6 % . [facility] [id number] [address] [facility] [address] Basophils (%) (Auto) April 08, 2025 5:04am April 08, 2025 5:52am 0.7 % . [facility] [id number] [address] [facility] [address] Nucleated RBC Relative Count (auto) April 08, 2025 5:04am April 08, 2025 5:52am 0.2 /100 0-0.5 [facility] [id number] [address] [facility] [address] Neutrophils # (Auto) April 08, 2025 5:04am April 08, 2025 5:52am 4.9 10*3/uL 1.8-7.7 [facility] [id number] [address] [facility] [address] Lymphocytes # (Auto) April 08, 2025 5:04am April 08, 2025 5:52am 1.2 10*3/uL 1.00-4.8 [facility] [id number] [address] [facility] [address] Monocytes # (Auto) April 08, 2025 5:04am April 08, 2025 5:52am 0.7 10*3/uL 0.0-0.8 [facility] [id number] [address] [facility] [address] Eosinophils # (Auto) April 08, 2025 5:04am April 08, 2025 5:52am 0.2 10*3/uL 0.0-0.45 [facility] [id number] [address] [facility] [address] Basophils # (Auto) April 08, 2025 5:04am April 08, 2025 5:52am 0.0 10*3/uL 0.0-0.2 [facility] [id number] [address] [facility] [address] Glucose Level April 08, 2025 5:04am April 08, 2025 6:10am 144 mg/dL Above high normal 70-100 ADA recommended reference range Random Glucose Reference Range is dependent on time and content of last meal. Glucose of more than 200 mg/dL in a nonstressed, ambulatory subject supports the diagnosis of Diabetes Mellitus. [facility] [id number] [address] [facility] [address] Blood Urea Nitrogen April 08, 2025 5:04am April 08, 2025 6:10am 30 mg/dL Above high normal 7-25 [facility] [id number] [address] [facility] [address] Creatinine April 08, 2025 5:04am April 08, 2025 6:10am 1.64 mg/dL Above high normal 0.60-1.20 [facility] [id number] [address] [facility] [address] Estimated GFR (CKD-EPI) April 08, 2025 5:04am April 08, 2025 6:10am 31.652 mL/Min Additional data reviewed: Results Imaging: - (05/19/2025) X-ray: Bilateral ureteral stents; left stent markedly kinked and coiled proximally, likely non-functional. Two left-sided percutaneous nephrostomy tubes present. Right iliac vascular stent present. ROS PE General: Alert & oriented, no acute distress . Pt on wheelchairs. Skin: Normal Abdomen: Left nephrostomy Genitourinary: Deferred MSK: Back is non-tender Extremities: No clubbing, cyanosis, or edema Assessment and Plan 1. Hydronephrosis, unspecified hydronephrosis type (N13.30) 2. Presence of other specified devices (Z97.8) - Bilateral ureteral stents placed due to ureteral scarring from previous C- sections and surgeries.Left-sided nephrostomy tube placed approximately one month ago due to non-functional stents and recurrent UTIs. Recent imaging shows one stent on the left side is markedly kinked and coiled in the most proximal aspect, likely non-functional. Ordered KUB to assess the current status of the stents and nephrostomy tube. Plan to perform ureteroscopy to remove the coiled stent if feasible; procedure to be scheduled at [facility] before the end of the year. Discussed potential need for intervention radiology if ureteroscopy is unsuccessful. 3. - Recurrent UTIs likely secondary to indwelling ureteral stents. Recent UTI treated with antibiotics. Discussed risks and benefits of surgical intervention to remove scar tissue causing ureteral obstruction; patient and family prefer to avoid major surgery at this time. Plan to address recurrentUTIs by removing non-functional stent and optimizing urinary drainage. Romel Maria MD Medical Decision Making: Problems: Moderate: 1+ chronic illnesses with change Data: Unique test result(s) reviewed: 3+ Unique test(s) ordered: 2 Risk: Moderate: Moderate risk from testing/treatment Medical Decision Making Level: 4 - Moderate Instructions - You have stopped Plavix for several days; do not restart it before the procedure. - Proceed now to radiology (across the hallway) for a KUB x-ray; radiology will give you instructions and check you out. Two stents on the left, with neph tube and stent on the right. - Return here after the x-ray so we can review the images and determine the best way to remove the coiled stent--either through the ureter (ureteroscopy) or via a flank approach. - We plan to perform the coiled stent-removal procedure at [facility] through a ureteroscopyand replace both stents with removal of left Nephrostomy before the end of the year. The pharmacy scheduler will call you to set a date and time based on your availability. Signs consent./ Romel Maria MD, PhD [facility] [id number] June 28, 2025 8:12 AM Recording using [employer] software for draft documentation of the visit was discussed with the patient/authorized access service representative; all questions welcomed and answered. Patient/authorized access service representative agreed to proceed CC: REFERRING PROVIDER: Yaniv Natarajan MD PRIMARY CARE PHYSICIAN: No primary care provider on file. [1] documented in this encounter Plan of Treatment DateTypeDepartmentCare Team (Latest Contact Info)Xzdcvzyrgny76/28/2026Hospital Encounter [facility] Operating Room [address] [place] [address] Romel Maria MD [address] [place] [address] Hydronephrosis, unspecified hydronephrosis type [N13.30], Presence of other specified devices [Z97.8], Recurrent urinary tract infection [N39.0]08/25/2025 9:40 [facility] [address] [place] [id number] Romel Maria MD [address] [place], [place] [id number] post opNameTypePriorityAssociated DiagnosesOrder ScheduleBACTERIAL CULTURE, URINEMicrobiologyRoutine Recurrent UTI Expected: 06/28/2025 (Approximate), Expires: 09/27/2025NamePriorityAssociated DiagnosesDate/TimeCYSTOURETHROSCOPY W/ URETEROSCOPY AND/OR PYELOSCOPY W/ LITHOTRIPSY INCLUDE INSERTION OF INDWELLING URETERAL STENT Hydronephrosis, unspecified hydronephrosis type Presence of other specified devices Recurrent urinary tract infection documented as of this encounter Results * BACTERIAL CULTURE, URINE (06/28/2025 11:56 AM EST)ComponentValueRef RangeTest MethodAnalysis TimePerformed AtPathologist SignatureCulture, Urine10,000 - <50,000 CFU/ml Normal urogenital flora06/30/2025 8:14 AM ESTGEN[facility] LABSpecimen (Source)Anatomical Location / LateralityCollection Method / VolumeCollection TimeReceived TimeUrineURINE SPECIMEN / UnknownNon Blood / [id number]/28/2025 11:56 AM EST06/28/2025 12:10 PM EST Narrative Authorizing ProviderResult TypeResult StatusFerjen Maria MDMICROBIOLOGYFinal ResultPerforming OrganizationAddressCity/State/ZIP CodePhone Number [facility] [address] [place] [address], * XR ABDOMEN 2V ROUTINE SUPINE W UPRIGHT/DECUB/CTL (06/28/2025 9:11 AM EST) Anatomical RegionLateralityModalityAbdomenOtherSpecimen (Source)Anatomical Location / LateralityCollection Method / VolumeCollection TimeReceived Time 06/28/2025 9:11 AM EST Impressions 06/28/2025 10:03 AM EST IMPRESSION: 1. ??Left ureteral stent with a superior segment that is coiled. ?? Comparison with the prior study would be useful. 2. ??Right ureteral stent and left percutaneous nephrostomy tube. Glass Breaker: WALTER ?? Transcribe Date/Time: Jun 28 2025 ??9:54A Dictated by : CHEVY CASTRO MD This examination was interpreted and the report reviewed and electronically signed by: CHEVY CASTRO MD on Jun 28 2025 10:01AM ??EST Narrative 06/28/2025 10:03 AM EST * * *Final Report* * * DATE OF EXAM: Jun 28 2025 ??9:11AM ?? LNX ?? [id number] ??- ??XR ABD 2V SUPINE W UPR/DECUB/CTL ??/ PROCEDURE REASON: Hydronephrosis, unspecified hydronephrosis type ? * * * * Physician Interpretation * * * * HISTORY: recurrent UTIs, bilateral ureteral stents, and a left nephrostomy tube, presenting for evaluation of a coiled stent in the left kidney. Coiled Stent: - Bilateral ureteral stents placed last year due to scar tissue in the ureters. - One stent on the left side is coiled and pushed up into the kidney; unable to be removed by previous physician. - Left nephrostomy tube placed one month ago at [facility] due to stents not functioning properly. TECHNIQUE: 3 views of the abdomen and pelvis. RESULT: Right ureteral stent is noted. ??The left ureteral stent is noted with the superior segment that is coiled. ??A left nephrostomy tube is noted. Left hip arthroplasty. ??Postoperative changes of the chest. ??No evidence of bowel obstruction. Procedure Note Provider, [facility] - 06/28/2025 * * *Final Report* * * DATE OF EXAM: Jun 28 2025 9:11AM LNX [id number] - XR ABD 2V SUPINE W UPR/DECUB/CTL / PROCEDURE REASON: Hydronephrosis, unspecified hydronephrosis type * * * * Physician Interpretation * * * * HISTORY: recurrent UTIs, bilateral ureteral stents, and a left nephrostomy tube, presenting for evaluation of a coiled stent in the left kidney. Coiled Stent: - Bilateral ureteral stents placed last year due to scar tissue in the ureters. - One stent on the left side is coiled and pushed up into the kidney; unable to be removed by previous physician. - Left nephrostomy tube placed one month ago at [facility] due to stents not functioning properly. TECHNIQUE: 3 views of the abdomen and pelvis. RESULT: Right ureteral stent is noted. The left ureteral stent is noted with the superior segment that is coiled. A left nephrostomy tube is noted. Left hip arthroplasty. Postoperative changes of the chest. No evidence of bowel obstruction. IMPRESSION IMPRESSION: 1. Left ureteral stent with a superior segment that is coiled. Comparison with the prior study would be useful. 2. Right ureteral stent and left percutaneous nephrostomy tube. [facility]aker[facility] Transcribe Date/Time: Jun 28 2025 9:54A Dictated by : CHEVY CASTRO MD This examination was interpreted and the report reviewed and electronically signed by: CHEVY CASTRO MD on Jun 28 2025 10:01AM EST Authorizing ProviderResult TypeResult StatusFernandmadeleine Maria MDRAD-PAMAFinal Result documented in this encounter Visit Diagnoses Diagnosis Hydronephrosis, unspecified hydronephrosis type- Primary Presence of other specified devices Recurrent urinary tract infection Urinary tract infection, site not specified Recurrent UTI Urinary tract infection, site not specified Hydronephrosis, unspecified hydronephrosis type documented in this encounter Care Teams Team MemberRelationshipSpecialtyStart DateEnd Date Yaniv Natarajan MD [address] [place] [phone] KfptnkcwjJzucbjp72/3/25documented as of this encounter
--- OUTSIDE RECORDS SUMMARY | 2025-06-28 08:42 | XMS_ITS | Encounter Summary ---
Author Organization [facility] Address [address] [place] [address] Care Team Providers Care Merchandising Representative Name Role Phone Yaniv Natarajan MD Unavailable [phone] Source Comments In the event this information is protected by the Federal Confidentiality of Alcohol and Drug AbusePatient Records regulations: The Federal rules restrict any use of the information to criminally investigate or prosecute any alcohol or drug abuse patient.[facility] Reason for Referral * Diagnostic Procedure Only (Urgent) - ClosedSpecialtyDiagnoses / Procedures Referred By ContactReferred To ContactXR IMAGING Diagnoses Hydronephrosis, unspecified hydronephrosis type Procedures XR ABDOMEN 2V ROUTINE SUPINE W UPRIGHT/DECUB/CTL RADIOLOGIC EXAM ABDOMEN 2 VIEWS Romel Maria MD [address] [place] [address] Phone: tel: fax: [place] [address] Referral IDStatusReasonStart DateExpiration DateVisits RequestedVisits [id number] Auto-Generated Referral / Reason for Visit * Diagnostic Procedure Only (Urgent) - ClosedSpecialtyDiagnoses / Procedures Referred By ContactReferred To ContactXR IMAGING Diagnoses Hydronephrosis, unspecified hydronephrosis type Procedures XR ABDOMEN 2V ROUTINE SUPINE W UPRIGHT/DECUB/CTL RADIOLOGIC EXAM ABDOMEN 2 VIEWS Romel Maria MD [address] [facility] [place] [address] Phone: tel: fax: [place] [address] Referral IDStatusReasonStart DateExpiration DateVisits RequestedVisits [id number] Auto-Generated Referral / Encounter Details DateTypeDepartmentCare Team (Latest Contact Info)Msbugnjftxi13/16/2025 8:42 AM EST - 06/28/2025 11:59 PM ESTHospital Encounter Radiology [address] [facility] [place] [address] Hydronephrosis, unspecified hydronephrosis type [N13.30] Discharge Disposition: Home Social History Tobacco UseTypesPacks/DayYears UsedDateSmoking Tobacco: Never Assessed CommentsUnknownSex and Gender InformationValueDate RecordedSex Assigned at Not on fileLegal OvhNagmsv07/03/2025 12:53 PM ESTGender IdentityNot on file Sexual OrientationNot on filedocumented as of this encounter Medications at Time of Discharge MedicationSigDispense QuantityRefillsLast FilledStart DateEnd Date carvedilol (COREG) 3.125 mg tablet Take 3.125 mg by mouth.05/18/2025 Cholecalciferol, Vitamin D3, 125 mcg (5,000 unit) cap Take 5,000 Units by mouth once daily.06/02/2025 insulin glargine 100 unit/mL (3 mL) Inject 20 Units subcutaneously.05/18/2025 bumetanide (BUMEX) 2 mg tablet 2 mg every 48 hours.05/21/2025 ondansetron orally disintegrating (ZOFRAN ODT) 4 mg disintegrating tablet Take 4 mg by mouth every 8 hours as needed for nausea/vomiting. gabapentin (NEURONTIN) 300 mg capsule Take 300 mg by mouth two times a day.04/22/2025 allopurinol (ZYLOPRIM) 300 mg tablet Take 300 mg by mouth once daily. ascorbic acid, vitamin C, (VITAMIN C) 500 mg tablet Take 500 mg by mouth. potassium chloride ER (KLOR-CON M10) 10 mEq tablet Take 10 mEq by mouth.documented as of this encounter Plan of Treatment DateTypeDepartmentCare Team (Latest Contact Info)Gwxknpopocz88/28/2026Hospital Encounter [facility] Operating Room [id number] [place] [address] Romel Maria MD [address] [place] [address] Hydronephrosis, unspecified hydronephrosis type [N13.30], Presence of other specified devices [Z97.8], Recurrent urinary tract infection [N39.0]08/25/2025 9:40 AM EST[facility] [address] [place] [address] Romel Maria MD [address] [place] [address] post opNamePriorityAssociated DiagnosesDate/TimeCYSTOURETHROSCOPY W/ URETEROSCOPY AND/OR PYELOSCOPY W/ LITHOTRIPSY INCLUDE INSERTION OF INDWELLING U RETERAL STENT Hydronephrosis, unspecified hydronephrosis type Presence of other specified devices Recurrent urinary tract infection documented as of this encounter Procedures Procedure NamePriorityDate/TimeAssociated DiagnosisCommentsXR ABDOMEN 2V ROUTINE SUPINE W UPRIGHT/DECUB/MRAJXGN61/16/2025 9:11 AM EST Hydronephrosis, unspecified hydronephrosis type documented in this encounter Results * XR ABDOMEN 2V ROUTINE SUPINE W UPRIGHT/DECUB/CTL (06/28/2025 9:11 AM EST) Anatomical RegionLateralityModalityAbdomenOtherSpecimen (Source)Anatomical Location / LateralityCollection Method / VolumeCollection TimeReceived Time 06/28/2025 9:11 AM EST Impressions 06/28/2025 10:03 AM EST IMPRESSION: 1. ??Left ureteral stent with a superior segment that is coiled. ?? Comparison with the prior study would be useful. 2. ??Right ureteral stent and left percutaneous nephrostomy tube. Card Table Attendant: WALTER ?? Transcribe Date/Time: Jun 28 2025 [...] nephrostomy tube placed one month ago at [facility] due to stents not functioning properly. TECHNIQUE: 3 views of the abdomen and pelvis. RESULT: Right ureteral stent is noted. ??The left ureteral stent is noted with the superior segment that is coiled. ??A left nephrostomy tube is noted. Left hip arthroplasty. ??Postoperative changes of the chest. ??No evidence of bowel obstruction. Procedure Note Provider, [facility] [place] - 06/28/2025 * * *Final Report* * [...] nephrostomy tube placed one month ago at [facility] due to stents not functioning properly. [...] ureteral stent and left percutaneous nephrostomy tube. Card Table Attendant: [facility] Transcribe Date/Time: Jun 28 2025 9:54A Dictated by : CHEVY CASTRO MD This examination was interpreted and the report reviewed and electronically signed by: CHEVY CASTRO MD on Jun 28 2025 10:01AM EST Authorizing ProviderResult TypeResult StatusFerjen Maria MDRAD-PAMAFinal Result documented in this encounter Visit Diagnoses Diagnosis Hydronephrosis, unspecified hydronephrosis type documented in this encounter Care Teams Team MemberRelationshipSpecialtyStart DateEnd Date Yaniv Natarajan MD [address] [place] [address] IujabkwuhJeqzxuw68/3/25documented as of this encounter
--- OUTSIDE RECORDS SUMMARY | 2025-06-28 10:00 | XMS_ITS | Encounter Summary ---
Author Organization [facility] Address [address] [place] [address] Care Team Providers Care Drilling Fluids Specialist Name Role Phone Yaniv Natarajan MD Unavailable [phone] Source Comments In the event this information is protected by the Federal Confidentiality of Alcohol and Drug AbusePatient Records regulations: The Federal rules restrict any use of the information to criminally investigate or prosecute any alcohol or drug abuse patient.[facility] Reason for Visit * ReasonCommentsurine collection via straigh cath. Encounter Details DateTypeDepartmentCare Team (Latest Contact Info)Jxdpafzlsgv03/16/2025 10:00 AM ESTNurse Visit Urology [address] [place] [address] Nurse Yaquelin Urol [facility] [address] [place] [address] Recurrent UTI (Primary Dx); Presence of other specified devices; Hydronephrosis, unspecified hydronephrosis type Social History Tobacco UseTypesPacks/DayYears UsedDateSmoking Tobacco: Never Assessed CommentsUnknownSex and Gender InformationValueDate RecordedSex Assigned at Not on fileLegal VspOwfncx44/03/2025 12:53 PM ESTGender IdentityNot on file Sexual OrientationNot on filedocumented as of this encounter Progress Notes * Casie Baker LPN - 06/28/2025 10:28 AM EST Patient was seen today, by Dr. Maria. Recurrent uti (primary encounter diagnosis) Presence of other specified devices Hydronephrosis, unspecified hydronephrosis type Straight catheter ordered for urine collection. This was performed using sterile technique, with the use of a 14fr straight catheter, closed system for collection. Patient tolerated well. Carried out orders of Dr. Maria,under his supervision. Casie Baker LPN documented in this encounter Plan of Treatment DateTypeDepartmentCare Team (Latest Contact Info)Crbdrshfrot50/28/2026Hospital Encounter [facility] Operating Room [address] [place] [address] Romel Maria MD [address] [place] [address] Hydronephrosis, unspecified hydronephrosis type [N13.30], Presence of other specified devices [Z97.8], Recurrent urinary tract infection [N39.0]08/25/2025 9:40 AM [facility] [address] [place] [address] Romel Maria MD [address] [place] [address] post opNamePriorityAssociated DiagnosesDate/TimeCYSTOURETHROSCOPY W/ URETEROSCOPY AND/OR PYELOSCOPY W/ LITHOTRIPSY INCLUDE INSERTION OF INDWELLING U RETERAL STENT Hydronephrosis, unspecified hydronephrosis type Presence of other specified devices Recurrent urinary tract infection documented as of this encounter Procedures Procedure NamePriorityDate/TimeAssociated DiagnosisCommentsBACTERIAL CULTURE, NFPLSNcvefzu35/16/2025 11:56 AM EST Recurrent UTI documented in this encounter Results * BACTERIAL CULTURE, URINE (06/28/2025 11:56 AM EST)ComponentValueRef RangeTest MethodAnalysis TimePerformed AtPathologist SignatureCulture, Urine10,000 - <50,000 CFU/ml Normal urogenital flora06/30/2025 8:14 AM ESTTR[facility]HE[facility] MAIN LABSpecimen (Source)Anatomical Location / LateralityCollection Method / VolumeCollection TimeReceived TimeUrineURINE SPECIMEN / UnknownNon Blood / Aomugcs8206/28/2025 11:56 AM EST06/28/2025 12:10 PM EST Narrative Authorizing ProviderResult TypeResult StatusFerjen Maria MDMICROBIOLOGYFinal ResultPerforming OrganizationAddressCity/State/ZIP CodePhone Number [facility] [address] documented in this encounter Visit Diagnoses Diagnosis Recurrent UTI- Primary Urinary tract infection, site not specified Presence of other specified devices Hydronephrosis, unspecified hydronephrosis type documented in this encounter Care Teams Team MemberRelationshipSpecialtyStart DateEnd Date Yaniv Natarajan MD [address] [phone] BlldlbkxjTpwbado41/3/25documented as of this encounter
[2025-07-02] VITALS (37 sets, daily range): BP systolic 109–173; BP diastolic 67–121; PULSE 53–98; TEMP 36.5–37.1; O2SAT 79–100; BMI 31.9; BMI 33.4
--- NOTE | 2025-07-02 12:47 | XR_ITS ---
The [address] [address] Patient Name: ESTHER TATUM MRN: [id number] date: 1945 Sex: F Assigned Patient Location: ED.MAIN Current Patient Location: ED.MAIN Accession/Order Number: [id number] Exam Date: 07/02/2025 13:10 Report Date: 07/02/2025 13:21 At the request of: KODI LUTZ MD Procedure: XR chest 1V Single view chest: CLINICAL HISTORY: SOB COMPARISON: Chest 05/21/2025 FINDINGS: Worsening bibasilar airspace disease and pleural effusion since the prior study. Cardiomegaly and vascular congestion. Post CABG changes. XR/XR chest 1V IMPRESSION: WORSENING CHF FINDINGS. Impression dictated by: Earnest Iraheta Jr., D.OPaul 07/02/2025 1:21 PM Dictation Location: [facility] Electronically authenticated by: [id number] Y Date: 07/02/2025 13:21
--- NOTE | 2025-07-02 12:47 | ECG_ITS ---
The [facility] Test Date: 2025-07-02 Pat Name: ESTHER TATUM Department: Room: - Gender: Female [employer]: : 1945 Requested By: [id number] Order Number: [id number] Reading MD: HI PEREZ M.D. Measurements Intervals [place] Rate: 86 P: 22 AR: 206 QRS: -16 QRSD: 120 T: 171 QT: 400 QTc: 443 Interpretive Statements 1100 Sinus rhythm 3114 Cannot rule out anterior myocardial infarction, age undetermined 3634 Inferior myocardial infarction, age undetermined [address] depression, possible subendocardial injury 4564 Twave abnormality, possible lateral ischemia 9150 abnormal ECG Compared to ECG 05/21/2025 10:33:22 ST (T wave) deviation now present Possible ischemia now present First degree AV block no longer present Left ventricular hypertrophy no longer present Electronically Signed On 07-02-2025 16:01:36 EST by HI PEREZ M.D.
--- NOTE | 2025-07-02 12:53 | ED.GENADUL1 ---
HPI HPI - General Adult General Chief complaint: Shortness of Breath/Dyspnea Stated complaint: SOB Time Seen by Provider: 07/02/25 12:42 Source: patient Mode of arrival: ambulance History of Present Illness HPI narrative: 80-year-old female presents for shortness of breath. She has been feeling this way for the last few days. She has not been coughing up any phlegm and has not had a known fever. She is not complaining of chest pain. She has a nephrostomy tube and is not on dialysis. She uses as needed oxygen at the [facility] and has been using it more frequently in the last few days. Related Data Home Medications ?Medication ?Instructions ?Recorded ?Confirmed allopurinol 300 mg tablet 300 mg PO DAILY 08/30/23 05/02/25 aspirin 81 mg tablet,delayed 81 mg PO DAILY 08/30/23 05/02/25 release cholecalciferol (vitamin D3) 125 125 mcg PO .every other day 08/30/23 05/02/25 mcg (5,000 unit) tablet clopidogrel 75 mg tablet 75 mg PO DAILY 08/30/23 05/02/25 furosemide 40 mg tablet 40 mg PO QAM 08/30/23 05/02/25 pantoprazole 20 mg tablet,delayed 20 mg PO .qd 04/11/25 05/02/25 release acetaminophen 500 mg tablet 1,000 mg PO Q8H PRN fever or pain 05/02/25 05/02/25 atorvastatin 20 mg tablet 20 mg PO BEDTIME 05/02/25 05/02/25 gabapentin 100 mg capsule 100 mg PO BEDTIME 05/02/25 05/02/25 insulin aspart U-100 100 unit/mL 3 - 15 unit subcut ACHS 05/02/25 05/02/25 (3 mL) subcutaneous pen (Novolog FlexPen U-100 Insulin aspart) insulin glargine-yfgn 100 unit/mL 25 unit subcut QPM 05/02/25 05/02/25 (3 mL) subcutaneous pen ipratropium 0.5 mg-albuterol 3 mg 3 ml inhalation Q6H PRN shortness 05/02/25 05/02/25 (2.5 mg base)/3 mL nebulization of breath or wheezing soln loperamide 2 mg capsule 2 mg PO Q6H PRN loose stool 05/02/25 05/02/25 (Anti-Diarrheal (loperamide)) Previous Rx's ?Medication ?Instructions ?Recorded carvedilol 3.125 mg tablet 3.125 mg PO BID #0 tabs 04/15/25 cefuroxime axetil 250 mg tablet 250 mg PO BID 10 days #20 tabs 04/15/25 egtrfhvv-dlowivt-qwtdtsl 24 31 g PO Q15M PRN Hypoglycemia #0 04/15/25 gram/31 gram oral gel grams (Insta-Glucose (with dextrin)) glucagon 1 mg solution for 1 mg IV Q15M PRN Hypoglycemia #0 ea 04/15/25 injection (Glucagon Emergency Kit) Allergies Allergy/AdvReac Type Severity Reaction Status Date / Time No Known Drug Allergies Allergy Verified 04/07/25 13:32 Opioid HPI Opioid Management Most Recent Opioid Data: Last Pain Scale 0 05/06/25, 17:52 Last Pain Intensity 0 05/06/25, 13:36 Last ORT Total Score 0 05/02/25, 13:44 Last ORT Risk Category Low Risk 05/02/25, 13:44 Review of Systems ROS Narrative A ten point review of systems is negative except as noted above. [facility] Medical History (Updated 07/02/25 @ 15:19 by Mao Lizama MD) CHF (congestive heart failure) ?I50.9 - Heart failure, unspecified (ICD-10) Gout ?M10.9 - Gout, unspecified (ICD-10) Peripheral arterial disease ?I73.9 - Peripheral vascular disease, unspecified (ICD-10) Stage 3b chronic kidney disease (CKD) ?N18.32 - Chronic kidney disease, stage 3b (ICD-10) HTN (hypertension) ?I10 - Essential (primary) hypertension (ICD-10) Surgical History S/P hip replacement ?Z96.649 - Presence of unspecified artificial hip joint (ICD-10) History of aortic bifurcation bypass graft ?Z95.828 - Presence of other vascular implants and grafts (ICD-10) S/P triple vessel bypass ?Z95.1 - Presence of aortocoronary bypass graft (ICD-10) History of 3 sections ?Z98.891 - History of uterine scar from previous surgery (ICD-10) Family History Brother Family history of cancer Mother Family history of hypertension Father Family history of myocardial infarction Other Family history of CHF (congestive heart failure) Family history of diabetes mellitus Social History Within the past year, how often did you have a drink containing alcohol: never Score interpretation: A score less than 3 is consistent with normal alcohol consumption. Smoking status: Former smoker Non-prescribed substance use: denies use Previous occupational history: disabled Highest level of school completed/degree received: high school graduate Are you now , , , , never or living with a partner: In a typical week, how many times do you talk on the telephone with family, friends, or neighbors: 3 or more times per week How often do you get together with friends or relatives: 3 or more times per week How often do you attend catholic or catholic services: 4 or more times per year Little interest or pleasure in doing things: not at all Feeling down, depressed, or hopeless: not at all Feel stressed/tense/nervous/anxious/difficulty sleeping: not at all Do you think of yourself as: straight/heterosexual Gender Identity: female Exam Narrative Exam Narrative: Nurses note and vital signs reviewed General:The patient appears no acute distress. Skin:Warm, dry, no pallor noted.There is no rash noted. Head:Normocephalic, atraumatic Eye: Normal conjunctiva, no drainage Ears, Nose, Mouth, and Throat: oral mucosa is moist. Nares patent. Cardiovascular:Regular Rate and Rhythm Respiratory: Lateral rales present. She is speaking in full sentences. Back:non-tender, no CVA tenderness bilaterally to percussion. GI: Soft and nontender Musculoskeletal: The patient has no evidence of calf tenderness, no pitting edema, symmetrical pulses noted bilaterally Neurological:A&O, normal speech Psychiatric:Cooperative Constitutional Vital Signs, click to edit/add: Last Vital Signs Temp 98.8 F 07/02/25 12:40 Pulse 59 L 07/02/25 14:20 Resp 18 07/02/25 14:20 BP 163/85 H 07/02/25 14:05 Pulse Ox 99 07/02/25 14:31 O2 Del Method Room Air 07/02/25 12:58 O2 Flow Rate 3 07/02/25 12:48 Course Vital Signs Vital signs: Vital Signs Temperature 98.8 F 07/02/25 12:40 Pulse Rate 88 07/02/25 12:40 Respiratory Rate 20 07/02/25 12:40 Blood Pressure 109/75 07/02/25 12:40 Pulse Oximetry 88 L 07/02/25 12:40 Oxygen Delivery Method Room Air 07/02/25 12:40 Temperature 98.8 F 07/02/25 12:40 Pulse Rate 59 L 07/02/25 14:20 Respiratory Rate 18 07/02/25 14:20 Blood Pressure 163/85 H 07/02/25 14:05 Pulse Oximetry 99 07/02/25 14:31 Oxygen Delivery Method Room Air 07/02/25 12:58 Oxygen Delivery Flow Rate 3 07/02/25 12:48 Medical Decision Making MDM Narrative Medical decision making narrative: The patient is found to have congestive heart failure. COVID and influenza test are both negative. She was given IV Lasix and is putting out urine through her nephrostomy tube. BUN and creatinine are improved from previous results. She will be admitted. Treatment diagnosis and disposition were discussed with the patient. Differential Diagnosis Differential Diagnosis: Heart failure, pulmonary edema, pneumonia, COVID, influenza Lab Data Lab results reviewed: Yes I reviewed the patient's lab results Labs: Lab Results 07/02/25 07/02/25 Range/Units 12:50 13:36 WBC 10.8 (4.0-11.0) 10^3/uL RBC 3.67 L (4.20-5.40) 10^6/uL Hgb 10.8 L (12.0-16.0) g/dL Hct 36.0 (36.0-48.0) % MCV 98.1 (81.0-99.0) fL MCH 29.4 (26.7-34.0) pg MCHC 30.0 (29.9-35.2) g/dL RDW 16.5 H (11.0-15.0) % Plt Count 276 (150-450) 10^3/uL MPV 10.4 (9.5-13.5) fL Neut % (Auto) 77.7 H (43.0-75.0) % Lymph % (Auto) 13.2 L (20.5-60.0) % [place] % (Auto) 6.4 (1.7-12.0) % Eos % (Auto) 1.9 (0.9-7.0) % Baso % (Auto) 0.3 (0.2-2.0) % Neut # (Auto) 8.4 H (1.4-6.5) 10^3/uL Lymph # (Auto) 1.4 (1.2-3.8) 10^3/uL [place] # (Auto) 0.7 (0.3-0.8) 10^3/uL Eos # (Auto) 0.2 (0.0-0.7) 10^3/uL Baso # (Auto) 0.0 (0.0-0.1) 10^3/uL Abs Immat Gran (auto) 0.05 H (0.00-0.03) 10^3/uL Imm/Tot Granulo (auto) 0.5 (0.0-0.5) % Sodium 136 (136-145) mmol/L Potassium 4.4 (3.5-5.1) mmol/L Chloride 97 L (98-107) mmol/L Carbon Dioxide 33.9 H (21.0-32.0) mmol/L Anion Gap 9.5 BUN 27.0 H (7.0-18.0) mg/dL Creatinine 1.41 H (0.55-1.02) mg/dL Est GFR ( Amer) 43 L (>=60 mL/min/1.73m^2) Est GFR (Non-Af Amer) 36 L (>=60 mL/min/1.73m^2) BUN/Creatinine Ratio 19.1 Glucose 153 H (74-106) mg/dL Calcium 9.3 (8.5-10.1) mg/dL Troponin I High Sens 20.6 (4.0-51.3) pg/mL NT-Pro-B Natriuret Pep 9230.0 H* (<=1800.0) pg/mL Influenza Type A Ag Negative Influenza Type B Ag Negative SARS-CoV-2 Ag (CV2AG) Negative (NEGATIVE) Imaging Data Chest x-ray: Radiologist's impression: ITS Impressions Chest X-Ray 07/02/25 12:47 IMPRESSION: WORSENING CHF FINDINGS. Impression dictated by: Earnest Iraheta Jr., D.O. 07/02/2025 1:21 PM Dictation Location: [place] [address] Electronically authenticated by: [id number] Y Date: 07/02/2025 13:21 ECG Data Attestation: I personally reviewed and interpreted this ECG as follows: (EKG on my interpretation shows sinus rhythm with a rate of 86) Critical Care Time Critical Care Time Critical Care Time: Yes Total Critical Care Time: 35 Attestation: Due to the high probability of sudden and clinically significant deterioration in the patient's condition he/she required the highest level of my preparedness to intervene urgently I provided critical care time including documentation time, medication orders and management, reevaluation, vital sign assessment, ordering and reviewing of lab tests, ordering and reviewing of x-ray studies, and admission orders. Aggregate critical care time is 35 minutes including only time during which I was engaged in work directly related to his/her care and did not include time spent treating other patients simultaneously. Discharge Plan Discharge Chief Complaint: Shortness of Breath/Dyspnea Clinical Impression: Congestive heart failure, Hypoxemia Patient Disposition: Admitted As Inpatient Time of Disposition Decision: 15:15 Condition: Fair
--- OUTSIDE RECORDS SUMMARY | 2025-07-02 13:06 | XMS_ITS | Encounter Summary ---
Author Organization [facility] Address [facility] [place] [address] Care Team Providers Care Control Specialist Name Role Phone Yaniv Natarajan MD Unavailable [phone] Source Comments In the event this information is protected by the Federal Confidentiality of Alcohol and Drug AbusePatient Records regulations: The Federal rules restrict any use of the information to criminally investigate or prosecute any alcohol or drug abuse patient.[facility] Encounter Details DateTypeDepartmentCare Team (Latest Contact Info)Xfecwwadccq68/16/2025Travel Social History Tobacco UseTypesPacks/DayYears UsedDateSmoking Tobacco: Never Assessed CommentsUnknownSex and Gender InformationValueDate RecordedSex Assigned at Not on fileLegal GfvUgzvav19/03/2025 12:53 PM ESTGender IdentityNot on file Sexual OrientationNot on filedocumented as of this encounter Plan of Treatment DateTypeDepartmentCare Team (Latest Contact Info)Bcmvqsbqzrb31/28/2026Hospital Encounter [facility] Operating Room [address] [place] [address] [place] [address] [place] [address] Hydronephrosis, unspecified hydronephrosis type [N13.30], Presence of other specified devices [Z97.8], Recurrent urinary tract infection [N39.0]08/25/2025 9:[facility] [address] [place] [address] Romel Maria MD [address] [place] [address] post opNamePriorityAssociated DiagnosesDate/TimeCYSTOURETHROSCOPY W/ URETEROSCOPY AND/OR PYELOSCOPY W/ LITHOTRIPSY INCLUDE INSERTION OF INDWELLING U RETERAL STENT Hydronephrosis, unspecified hydronephrosis type Presence of other specified devices Recurrent urinary tract infection documented as of this encounter Visit Diagnoses Not on filedocumented in this encounter Care Teams Team MemberRelationshipSpecialtyStart DateEnd Date Yaniv Natarajan MD [address] [place] [id number] CgreeetfwYbexgqy09/3/25documented as of this encounter
--- OUTSIDE RECORDS SUMMARY | 2025-07-02 13:07 | XMS_ITS | Encounter Summary ---
Author Organization [facility] Address [address] [place] [address] Care Team Providers Care Casino Gaming Inspector Name Role Phone Yaniv Natarajan MD Unavailable [phone] Source Comments In the event this information is protected by the Federal Confidentiality of Alcohol and Drug AbusePatient Records regulations: The Federal rules restrict any use of the information to criminally investigate or prosecute any alcohol or drug abuse patient.[facility] Reason for Visit * ReasonCommentsPatient Question Encounter Details DateTypeDepartmentCare Team (Latest Contact Info)Lmytysprhjy72/18/2025Telephone Internal Medicine [address] [place], [place] [id number] Romel Maria MD [address] [place], [place] [phone] Patient Question Social History Tobacco UseTypesPacks/DayYears UsedDateSmoking Tobacco: Never Assessed CommentsUnknownSex and Gender InformationValueDate RecordedSex Assigned at Not on fileLegal FruAnxmhc12/03/2025 12:53 PM ESTGender IdentityNot on file Sexual OrientationNot on filedocumented as of this encounter Miscellaneous Notes * Telephone Encounter - Oralia Lyons MA - 07/01/2025 10:51 AM EST Unable to fax information to number listed below. Called the facility and was given a updated fax number. [phone]. Have attempted to fax documents to the new number with no luck. Will attempt at another time. * Telephone Encounter - Nuris Webb - 06/30/2025 1:10 PM EST Mayi from [facility] is calling Romel Maria MD today to request most recent office notes and urine test results to be faxed over to their facility. Please advise. Fax number: [phone] ([facility], [facility] nurse) Patient has been identified by name and birthdate. Duration of symptoms: N/A Person calling: Mayi Call at: [phone] Was an appointment scheduled: No Closing statement: Results or non-symptom based questions: Thank you for calling [facility], your call will be returned within the next business day. Thank you, Nuris Webb documented in this encounter Plan of Treatment DateTypeDepartmentCare Team (Latest Contact Info)Knvqahciigi26/28/2026Hospital Encounter [facility] Operating Room [address] [place] [address] Romel Maria MD [address] [place] [address] Hydronephrosis, unspecified hydronephrosis type [N13.30], Presence of other specified devices [Z97.8], Recurrent urinary tract infection [N39.0]08/25/2025 9:40 AM [facility] Urology [address] [place] [address] Romel Maria MD [address] [place] [address] post opNamePriorityAssociated DiagnosesDate/TimeCYSTOURETHROSCOPY W/ URETEROSCOPY AND/OR PYELOSCOPY W/ LITHOTRIPSY INCLUDE INSERTION OF INDWELLING U RETERAL STENT Hydronephrosis, unspecified hydronephrosis type Presence of other specified devices Recurrent urinary tract infection documented as of this encounter Visit Diagnoses Not on filedocumented in this encounter Care Teams Team MemberRelationshipSpecialtyStart DateEnd Date Yaniv Natarajan MD [address] [place] [address] WhucxmbrrCoqznhk85/3/25documented as of this encounter
--- OUTSIDE RECORDS SUMMARY | 2025-07-02 13:07 | XMS_ITS | Clinical Summary ---
Author Organization ReserveOut tem Address [id number] [address] [place] [address] Care Team Providers Care Casing Runner Name Role Phone Olivia Cazares MD Primary Care Provider [phone] Allergies No known active allergies Medications MedicationSigDispense QuantityRefillsLast FilledStart DateEnd DateStatus allopurinoL (ZYLOPRIM) 100 mg tablet Take 3 tablets (300 mg total) by mouth in the morning.Active cholecalciferol, vitamin D3, 5,000 units tablet Take 1 tablet (5,000 Units total) by mouth in the morning.Active clopidogreL (PLAVIX) 75 mg tablet Take 1 [...] pen Inject 20 Units under the skin nightly.5Active gabapentin (NEURONTIN) 300 mg capsule Indications:Chronic hypercapniaTake 1 capsule (300 mg total) by mouth nightly. 7 capsule 5Active sennosides-docusate sodium (SENOKOT-S) 8.6-50 mg Take 2 tablets by mouth in the morning and 2 tablets before bedtime.05/18/2025 Active docusate sodium (COLACE) 50 mg capsule Take 1 capsule (50 mg total) by mouth nightly.Active bumetanide (BUMEX) 2 mg tablet Take 1 tablet (2 mg total) by mouth every other day.5Active polyethylene glycol (GLYCOLAX) 17 gram packet Take 17 g by mouth in the morning and 17 g before bedtime.5Active Active Problems ProblemNoted DateDiagnosed DateRespiratory aowjsgu0105/08/2025ute exacerbation of CHF (congestive heart failure)05/08/2025 Encounters DateTypeDepartmentCare BamiVbrcxcddvyf19/21/2025Telephone [facility] Infectious Disease [address] [address] Dorota Maxwell CMA 06/03/20256630Hjawbk90/08/2025Telephone [facility] [address] [place] [phone] Kylie Salas RN Enxuzzj0105/20/2025Telephone [facility] Pulmonary/Sleep Medicine [address] [facility] [address] [place] [phone] Rohini Manley, ELECTRICAL INTERN-SUPERVISOR [employer] 05/20/2025Telephone [facility] Infectious Disease [address] [facility] [address] [place] [address] Asya Silver MA 05/18/2025Telephone [facility] Medication Management [address] [address] Mer [facility]-B[facility]iste [facility] 05/13/2025Orders Only [facility] Medication Management [address] [address] Medication Management, [facility] 05/09/20258656Ugncfs59/27/2025Orders Only [facility] [address] [place] [phone] Transcribe, Orders Support User Pain (Primary Dx)05/08/2025 8:24 PM EDT - 05/20/2025 11:00 AM ESTHospital Encounter [facility] - GEN [address] Progressive [address] [place] [phone] Sunshine Parikh MD Noumi, MD Hoda Gtz Amulya R, MD Dimmerling, Janel Ybarra MD Chronic hypercapnia (Primary Dx); Obesity hypoventilation syndrome ([facility]); Urinary tract infection without hematuria, site unspecified Discharge Disposition: Half-Way Facility-Medicare Cert05/08/2025 4:00 PM EDTAncillary Procedure [facility] [address] [place] [phone] Pain05/08/2025 11:45 AM EDTAncillary Procedure [facility] [address] [place] [phone] Pain05/02/2025 2:45 PM EDTAncillary Procedure [facility] [address] [place] [phone] Pain05/02/2025 1:05 PM EDTAncillary Procedure [facility] [address] [place] [phone] Pain05/02/2025 1:00 PM EDTAncillary Procedure [facility] [address] [place] [phone] Pain05/02/2025 10:20 AM EDTAncillary Procedure [facility] [address] [place] [phone] Painfrom Last 3 Months Immunizations ImmunizationAdministration DatesNext DueInfluenza (IM) Preservative Free 04/30/2011Pneumococcal Qaztoorsvrmtld36/05/2012(Deferred: Other - Never)Td (adult), 5 Lf tetanus toxoid, preservative free, aammtwgv35/05/2012,12/17/2011, 12/17/2011,12/17/2011,12/17/2011,12/17/2011,12/17/2011,12/17/2011,12/17/2011, 12/17/20119562Badhazj72/05/2012Zoster Live12/17/2011(Deferred: Other - Never) Social History Tobacco UseTypesPacks/DayYears UsedDateSmoking Tobacco: NeverSmokeless Tobacco: Never Tobacco Cessation:Counseling Given: Not Answered Alcohol UseStandard Drinks/WeekCommentsNever0 (1 standard drink = 0.6 oz pure alcohol)PHQ-2AnswerDate RecordedTotal Jwhmt516UDIT-CAnswerDate Recorded Q1: How often do you have [...] as a part of a household?No 05/09/2025hildcareAnswerDate FfyfxjqlBueydkykfXlhfeps82/10/2019EmploymentAnswer Date WtukkcdgFayfwiiiruSzwwoko15/10/2019Hunger ScreeningAnswerDate Recorded Within the past 12 months we worried whether our food would run out before we got money to buy more.Never True05/09/2025Within the past 12 months the food we bought just didn't last and we didn't have money to get more.Never True 05/09/2025CommentsNoSex and Gender InformationValueDate RecordedSex Assigned at BirthNot on fileLegal TkgWyhcct91/26/2025 3:17 PM EDTGender Identity Not on fileSexual OrientationNot on file Last Filed Vital Signs Vital SignReadingTime TakenCommentsBlood Nrzewzao139/9005/20/2025 9:00 AM EST Xjaid802105/20/2025 9:00 AM JFARbeocpbpmju52.3 ??C (97.4 ??F)05/20/2025 8:00 AM ESTRespiratory Bblb230607/20/2024 9:00 AM ESTOxygen Zhdxqvixdb952%05/20/2025 9:00 AM ESTInhaled Oxygen Concentration--Ppfkfw23.3 kg (148 lb 5.9 oz)05/20/2025 5:00 AM WRYBijvbv503.9 cm (4' 11 )05/09/2025 5:00 PM EDTBody Mass Index29.97 05/09/2025 5:00 PM EDT Plan of Treatment Health MaintenanceDue DateLast DoneCommentsZoster (Shingles) Vaccine (1 of 2) 1995Fall Risk Gaujkoiwh24/22/2010DTaP,Tdap and Td Vaccines (1 - Tdap) , 12/17/2011, 12/17/2011, Additional history existsRSV ( or age 60+ yrs) (1 - 1-dose 75+ series)2020COVID-19 Vaccine ( - season)5108/18/2021, 04/13/2021, 08/30/2020, Additional history existsInfluenza Guaxzky19/, 07/01/2019, 07/14/2018, Additional history existsDepression Jirdateab54Tobacco Screening Goals GoalPatient Goal TypeAssociated ProblemsRecent ProgressPatient-Stated?Author Home with spouse and home care services Eden Schilling Note: Evaluation of progress towards goal: Home with spouse and [facility] services Medical Devices Not on file Procedures Procedure NamePriorityDate/TimeAssociated DiagnosisCommentsBEDSIDE GLUCOSE Fzoghje7305/20/2025 8:47 AM EST GFHXNYFTZXMnwicrx40/07/2025 5:44 AM EST ZVEHJNPFTTbhagdu56/07/2025 5:44 AM EST BASIC METABOLIC VRNBWGvsyfgo04/07/2025 5:44 AM EST CBC WITH AUTO VNKODQCDWXXRBpllvzq71/07/2025 5:44 AM EST BEDSIDE BKPZAXWRwiiuxd11/06/2025 9:04 PM EST BEDSIDE GCKFNTHCfwbotl28/06/2025 4:07 PM EST XR ABDOMEN AP 1 PFAuwndet83/06/2025 3:28 PM EST BEDSIDE RXMSJPFUdjavlr26/06/2025 12:21 PM EST BEDSIDE SQYJNOJTkbcycz55/06/2025 8:47 AM EST CK TOTALAdd-On05/19/2025 6:12 AM EST LSDQLWRHOGMkdnmbe84/06/2025 6:12 AM EST YWFEISSZGXkofwbd42/06/2025 6:12 AM EST BASIC METABOLIC CHITROtpermp67/06/2025 6:12 AM EST CBC WITH AUTO GLYNGEYQPOXEIgpspxm20/06/2025 6:12 AM EST RHAKUSQHDEPSwtrkdi41/06/2025 4:00 AM ESTBLOOD GAS, NTUFNJMRPrfbrvh66/06/2025 12:12 AM EST FXABVZEJEMFNgbqqlq68/06/2025 12:00 AM ESTBEDSIDE XISKTQXCdkqwme75/05/2025 9:44 PM EST UORSUYQASSVLuqvbua92/05/2025 8:00 PM ESTBEDSIDE WCSXHLCRohlcab36/05/2025 4:26 PM EST XR CHEST 1 XYRrbvsgm39/05/2025 4:16 PM EST FLTLLRXOVTaxpgww58/05/2025 1:36 PM EST BEDSIDE OLOMCWJTybfuev76/05/2025 12:48 PM EST KQIPMNYZFXOSheobpd66/05/2025 12:00 PM ESTBEDSIDE QBNHAPQSqqmget41/05/2025 9:09 AM EST BEDSIDE TPFRRGZWekqwsi68/05/2025 8:27 AM EST TFHZCTSIMNLtvzngm21/05/2025 5:37 AM EST SXHFJDYEZBknkadj34/05/2025 5:37 AM EST BASIC METABOLIC EHCADUveaggy28/05/2025 5:37 AM EST CBC WITH AUTO LSCJBKNSKCIQZcbcrlp21/05/2025 5:37 AM EST IXKAYCFRHPUVfuutxa97/05/2025 4:00 AM HZNOBKFUARUNKBUocrpxd41/05/2025 12:00 AM ESTBEDSIDE SCDMBNYVurlxpb37/04/2025 8:35 PM EST VGUOJDJJTTVLjakrei26/04/2025 8:00 PM ESTBEDSIDE RAEKDSPHuubdtm37/04/2025 5:02 PM EST QLCPQBMPYXsfmwqv44/04/2025 1:42 PM EST BEDSIDE LSWTVOXFrhlcee04/04/2025 11:52 AM EST BEDSIDE YMIVDQCEkwvffu84/04/2025 7:50 AM EST CK BOTZJOghssqo35/04/2025 5:39 AM EST XMOZWSDAOVEzjuuxn22/04/2025 5:39 AM EST WLWWHXMLZAszxeqj2025 5:39 AM EST BASIC METABOLIC SHKGECwbfsiy21/04/2025 5:39 AM EST CBC WITH AUTO CAHENAVZCOZFSgaeucj71/04/2025 5:39 AM EST XRFXTLZZAIVJgxxeeh78/04/2025 4:00 AM ZJEZZKKHKPHTRCAtapemq93/04/2025 12:00 AM ESTBEDSIDE XAHWJXPHmbypor77/03/2025 10:00 PM EST BEDSIDE GCFOMPVZugdsee28/03/2025 4:14 PM EST IR PERC NEPH TUBE LT + NGRAM + S&VSpngfop99/03/2025 3:30 PM EST BEDSIDE SLDRWMDGnorzlx80/03/2025 11:07 AM EST BEDSIDE AACOSKTGeermmt54/03/2025 7:20 AM EST IZSTZOXRLHAsxoibd17/03/2025 6:37 AM EST YEPTWDHRKBwbmdvq68/03/2025 6:37 AM EST BASIC METABOLIC RRQPLEbrsymo04/09/2024 6:37 AM EST CBC WITH AUTO EUDSFTLQAKTWSrnxwfk13/03/2025 6:37 AM EST YUNHFBTBENSWjmjrzc90/03/2025 4:00 AM YLJAVWWUWPXYNAUxpskwe14/03/2025 12:00 AM ESTBEDSIDE ZZYQKHHTrxegxu62/02/2025 9:30 PM EST BXXFDGKVVKHEtfzazm69/02/2025 8:00 PM ESTBEDSIDE ZEHEUPXNddhbdr86/02/2025 4:14 PM EST BEDSIDE XAQOFCVWjtqyum71/02/2025 12:24 PM EST BLOOD GAS, AGIWFIDhrnjts49/02/2025 11:50 AM EST PROTIME & YURJZVS3005/15/2025 11:47 AM EST ICHLBXMFUApbbxlv41/02/2025 11:47 AM EST XR CHEST 1 PPPyddhif09/02/2025 9:35 AM EST BEDSIDE SOHZTHJYjslvaz70/02/2025 8:09 AM EST HXASTEKNWMLbroswc64/02/2025 4:51 AM EST IRXRDHSHXOxmzlsr04/02/2025 4:51 AM EST CBC WITH AUTO JQJWSEACFSPRGijcrvx61/02/2025 4:51 AM EST BASIC METABOLIC CYAQKGxkxoot24/02/2025 4:51 AM EST LIVER CMMRSWuuybov85/02/2025 4:51 AM EST JRJCEDTCQLAOoklvlg41/02/2025 4:00 AM CUSMBFOLNTMGBXTnemzhi24/02/2025 12:00 AM EDTBEDSIDE UROVZGGNgfmmhk29/01/2025 9:27 PM EDT AADWOMJSNKMQrdimow97/01/2025 8:00 PM EDTBEDSIDE TEAMDCWTyiynly41/01/2025 4:45 PM EDT XNARKMCDUJQUpnjfrg54/01/2025 4:00 PM YHRRBITDOMJXEHFrfxzic78/01/2025 12:00 PM EDTBEDSIDE XAGHALYVldyfeb79/01/2025 12:00 PM EDT BLOOD LSPJOSTZMKF18/01/2025 9:52 AM EDT BLOOD KHQYQFEPEDK95/01/2025 9:52 AM EDT ADWSYFUAOEDZefszhp30/01/2025 8:00 AM EDTBEDSIDE DVEXGTZRwrobjp77/01/2025 7:51 AM EDT CK TTGOFSkgepmz09/01/2025 5:19 AM EDT B-TYPE NATRIURETIC PEPTIDEAdd-On05/14/2025 5:19 AM EDT IONIZED EZFPSHOUlxhzos82/01/2025 5:19 AM EDT GHXTUNCMFARexocwk71/01/2025 5:19 AM EDT HYZASNNWZPcviexs23/01/2025 5:19 AM EDT CBC WITH AUTO CGJKAQKRUCKXRrgxusr45/01/2025 5:19 AM EDT BASIC METABOLIC XJZDGYapsdvg00/01/2025 5:19 AM EDT LIVER CJOPJRxdvngq38/01/2025 5:19 AM EDT SSSRFIQWHGJCapoksf94/01/2025 4:00 AM OFFMSMUXGIHXLISomggba68/01/2025 12:00 AM EDTBEDSIDE ZDSSVXHQwozzqw29/31/2025 9:20 PM EDT EYRYRIYSPECYeafgcs54/31/2025 8:00 PM EDTBEDSIDE GSVNPIBFaubgij08/31/2025 4:12 PM EDT NGFPWSODDHVMjrngah06/31/2025 4:00 PM EDTBLOOD GAS, CHZGXRZOCdixuok44/31/2025 3:43 PM EDT BEDSIDE EBHECYAEpoxdek58/31/2025 12:[address] BRAIN WO IUFEDUEM82/31/2025 10:42 AM EDT EXTRA TUBES LAVENDER TOP ON QJYUqpykoz20/31/2025 9:01 AM EDT CBC WITH AUTO EMZYMHFOPWUIVeeoqog84/31/2025 9:01 AM EDT BASIC METABOLIC NCTYBKpoomtm56/31/2025 9:01 AM EDT EXTRA JTGLIIthpsgb40/31/2025 9:01 AM EDT BEDSIDE AYQNEGOZmumota85/31/2025 8:59 AM EDT ESCVCZKDRZIViikyjl60/31/2025 8:00 AM EDTBEDSIDE PFFCFFAWfjrnyi85/31/2025 7:32 AM EDT LIVER ELOZVCynihzj55/31/2025 5:32 AM EDT LAVENDER FIMZrdbquj54/31/2025 5:29 AM EDT RAINBOW WXUYVmcuhud43/31/2025 5:29 AM EDT FMFNVRBOWPEUeakucc27/31/2025 4:00 AM BINMAOPTGHHHANXivzpui41/31/2025 12:00 AM EDTBEDSIDE DYFEHDUFleirtw96/30/2025 8:16 PM EDT BEDSIDE QGCLKJPJqqliwp77/30/2025 5:00 PM EDT ALHJXCUKDXJThhvfwq18/30/2025 4:00 PM EDTXR CHEST 1 YLTgegmpp72/30/2025 12:57 PM EDT BEDSIDE QHCFHCFRvmyudd64/30/2025 12:30 PM EDT QBKEYPMFSTXDoajaex45/30/2025 12:00 PM EDTLACTATE W/ HRVJCSHZDR47/30/2025 11:17 AM EDT BEDSIDE APPIJQXZazjois20/30/2025 9:21 AM EDT PQZEYJHMHSYEyexzxj40/30/2025 8:00 AM EDTNOCTURNAL OXIMETRY STUDYRoutine 05/12/2025 7:45 AM EDTHEMOGLOBIN Y9GSwg-Kd11/30/2025 5:54 AM EDT HLKNAXQEMNhiylqr02/30/2025 5:54 AM EDT CBC WITH AUTO JVFLKRRTRMHQRarxzbe35/30/2025 5:54 AM EDT BASIC METABOLIC FDDYWBdysewo59/30/2025 5:54 AM EDT RKKVBWVKPXLClcllcl72/30/2025 4:00 AM XHMQDDSQARSHYIXhajvtr99/30/2025 12:00 AM EDTBEDSIDE NRZCJWRTwlvmyc31/29/2025 8:56 PM EDT YHZCLZTQMKPKkfqdll17/29/2025 8:00 PM EDTBEDSIDE ATWVAOOFuchdyl36/29/2025 5:06 PM EDT BEDSIDE FWLJAJUHpiufek60/29/2025 2:12 PM EDT BEDSIDE WAJVTSFMitsheb79/29/2025 1:56 PM EDT RKHXANNMXCNWmykqpq82/29/2025 8:00 AM ZMEXSQNUMFKNMgzrkzr06/29/2025 5:25 AM EDT CBC WITH AUTO WRYYUGSZMXQQCzqncvs12/29/2025 5:25 AM EDT BASIC METABOLIC YLCDEJpdzgzb47/29/2025 5:25 AM EDT ECHO COMPLETE W NHBBRESVZbsbtjw40/28/2025 9:42 AM EDT BLOOD GAS, EXSDQVGKUqejotx32/28/2025 9:09 AM EDT VASC VENOUS DUPLEX LOWER MLDLWVLCQKnpzhho02/28/2025 9:02 AM EDT PYFZKICFQQeoxsqf29/28/2025 5:48 AM EDT CBC WITH AUTO WDOBHIUNOOXYIktnnkj63/28/2025 5:48 AM EDT BASIC METABOLIC YONPSHliulnh72/28/2025 5:48 AM EDT GYOVHEJUMLNOvzmwsf64/28/2025 4:01 AM UVSXPBCJFSYRGMWcdyvpg17/28/2025 12:00 AM EDTURINE CREATININE,ZCCHXHZldemgu13/27/2025 11:14 PM EDT PROTEIN CREAT MBWDEFglzqok63/27/2025 11:14 PM EDT ICMHCCWCQUMebhnqx83/27/2025 11:14 PM EDT SODIUM, URINE, KBWPOIShfbrkl80/27/2025 11:14 PM EDT URINE CULTURESTAT Add-on05/09/2025 11:14 PM EDT BLOOD GAS, WXLSMZOzdqhag68/27/2025 3:14 PM EDT CYTOPLASMIC NEUTROPHILIC AB (ANCA), DSilobfg88/27/2025 11:53 AM EDT FOLATEAdd-On05/09/2025 11:52 AM EDT VITAMIN H49Som-Qa33/27/2025 11:52 AM EDT FERRITINAdd-On05/09/2025 11:52 AM EDT IRON AND TIBCAdd-On05/09/2025 11:52 AM EDT VIVEK SCREEN W/ REFLEXSTAT Add-on05/09/2025 11:52 AM EDT CK TOTALAdd-On05/09/2025 11:52 AM EDT GLOMERULAR BASEMENT MEMBRANE IGG AQZhcopjs27/27/2025 11:52 AM EDT PROTEINASE 3 AB MI3YIYU6105/09/2025 11:52 AM EDT MYELOPEROXIDASE ZQPGZA49 11:52 AM EDT FREE LIGHT AWEVMYAftxkop18/27/2025 11:52 AM EDT COMPLEMENT PROFILE (C3 AND C4)Xgqyynf4705/09/2025 11:52 AM EDT PROTEIN ELECTROPHORESIS, QVJEEDucefip66/27/2025 11:52 AM EDT XDRADLBDYSIWzxsyda97/27/2025 8:00 AM EDTRHEUMATOID FACTORAdd-On05/09/2025 5:56 AM EDT DOUBLE STRANDED DNA ABAdd-On05/09/2025 5:56 AM EDT VIVEK SCREEN W/ REFLEXAdd-On05/09/2025 5:56 AM EDT URIC ACIDAdd-On05/09/2025 5:56 AM EDT CBC WITH AUTO JCLUBADINOJODcntgdg50/27/2025 5:56 AM EDT COMPREHENSIVE METABOLIC YGUSDKfyumiu66/27/2025 5:56 AM EDT JZQKUOVVDJCZatqknv33/27/2025 4:00 AM LHHZTXKXMUFUZTNjsiojo14/27/2025 12:00 AM EDTBEDSIDE FMOGOEZMxdozdz13/26/2025 9:36 PM EDT QTOUAIOLUBJNencxfj73/26/2025 8:40 PM KWSKFMRUISNRYHKrvejwa37/26/2025 8:40 PM EDT ULCUJRDUPKTDeosxxi24/26/2025 8:40 PM SOCRSIEFWTKQDLCmlhnrp20/26/2025 8:40 PM EDT GYVYJFMWUWHYhievoj83/26/2025 8:40 PM NGADCYSLWNAPNDNdfuxwt92/26/2025 8:40 PM EDT PULSE OXIMETRY, QQOXBxupmmw79/26/2025 8:30 PM EDTXR CHEST 1 QBBfdosih08/26/2025 4:[address] ABDOMEN AND PELVIS EQPHMhhiknp29/26/2025 11:[address] ABDOMEN AND PELVIS QWBURkkzlhj94/20/2025 2:[address] BRAIN KPWFQtdltgj28/20/2025 1:[address] CHEST DIRTVovzehp60/20/2025 1:00 PM EDT Pain XR CHEST 1 QJLxpcdrk33/20/2025 10:20 AM EDT Pain from Last 3 Months Results * (ABNORMAL) Bedside Glucose *Place/Obtain serum glucose if >500 per glucometer. (05/20/2025 8:47 AM EST) Only the most recent of40 resultswithin the time period is included. ComponentValueRef RangeTest MethodAnalysis TimePerformed AtPathologist Signature Bedside Glucose (POC)161(H)65 - 99 mg/dL05/20/2025 8:53 AM [facility] LABORATORYSpecimen (Source)Anatomical Location / LateralityCollection Method / VolumeCollection TimeReceived Timearterial/rnhowhmiq74/07/2025 8:47 AM EST 05/20/2025 8:53 AM EST Narrative Authorizing ProviderResult TypeResult StatusTaylor Amada Al MDPOINT OF CARE TEST ORDERABLESFinal ResultPerforming OrganizationAddressCity/State/ZIP Code Phone Number [facility] [address] [place] [address], * (ABNORMAL) CBC auto differential (05/20/2025 5:44 AM EST) Only the most recent of12 resultswithin the time period is included. ComponentValueRef RangeTest MethodAnalysis TimePerformed AtPathologist Signature WBC8.64 - 11 X10^9/L107/20/2024 6:26 AM [facility] LABORATORYRBC Count3.04(L)3.8 - 5.2 X10^12/L107/20/2024 6:26 AM [facility] LABORATORYHemoglobin9.6(L)11.7 - 15.5 g/dL05/20/2025 6:26 AM [facility] TEVUEEISWNFfvffzdzju29.8(L)35 - 47 %05/20/2025 6:26 AM [facility] CRIYKTZWLUTOI7269 - 100 fL05/20/2025 6:26 AM [facility] MYPQZSKAMUZOJ93.627 - 34 pg05/20/2025 6:26 AM [facility] WGMCQTVCKGVJWN10.332 - 36 g/dL05/20/2025 6:26 AM [facility] FBLXTPESEJBAX10.3(H)11.5 - 15 %05/20/2025 6:26 AM [facility] LABORATORYPlatelet Ormgz176909 - 450 X10^9/L107/20/2024 6:26 AM [facility] LABORATORYMPV9.57 - 12 fL05/20/2025 6:26 AM [facility] LABORATORYNeutrophils %62.5%05/20/2025 6:26 AM [facility] LABORATORYLymphocytes %22.3%05/20/2025 6:26 AM [facility] LABORATORYMonocytes %9.8%05/20/2025 6:26 AM [facility] LABORATORYEosinophils %4.8%05/20/2025 6:26 AM [facility] LABORATORYBasophils %0.6%05/20/2025 6:26 AM [facility] LABORATORYNeutrophils Absolute (A)5.41.5 - 6.6 X10^9/L107/20/2024 6:26 AM [facility] LABORATORYLymphocytes Absolute1.91.0 - 3.5 X10^9/L107/20/2024 6:26 AM [facility] LABORATORYMonocytes Absolute0.80.0 - 0.9 X10^9/L107/20/2024 6:26 AM [facility] LABORATORYEosinophils Absolute0.40.0 - 0.4 X10^9/L107/20/2024 6:26 AM [facility] LABORATORYBasophils Absolute0.10.0 - 0.2 X10^9/L107/20/2024 6:26 AM [facility] LABORATORYDifferential TypeAUTOMATED GOUSSVITFEZI88/07/2025 6:26 AM [facility] LABORATORYSpecimen (Source)Anatomical Location / LateralityCollection Method / VolumeCollection TimeReceived TimeBloodVenous blood / UnknownVenipuncture / Itpopze3705/20/2025 5:44 AM EST05/20/2025 6:08 AM EST Narrative Authorizing ProviderResult TypeResult StatusAmhossein Drummond MDLAB BLOOD ORDERABLES Final ResultPerforming OrganizationAddressCity/State/ZIP CodePhone Number [facility] [address] [place] [address], * Phosphorus (05/20/2025 5:44 AM EST) Only the most recent of7 resultswithin the time period is included. ComponentValueRef RangeTest MethodAnalysis TimePerformed AtPathologist Signature PHOSPHORUS4.62.4 - 4.9 mg/dL05/20/2025 9:38 AM [facility] LABORATORYSpecimen (Source)Anatomical Location / LateralityCollection Method / VolumeCollection TimeReceived TimeBloodVenous blood / UnknownVenipuncture / Kxzhuwk5005/20/2025 5:44 AM EST05/20/2025 9:23 AM EST Narrative Authorizing ProviderResult TypeResult StatusRamy Lee BARRY BLOOD ORDERABLES Final ResultPerforming OrganizationAddressCity/State/ZIP CodePhone Number [facility] [address] [place] [address], * Magnesium (05/20/2025 5:44 AM EST) Only the most recent of10 resultswithin the time period is included. ComponentValueRef RangeTest MethodAnalysis TimePerformed AtPathologist Signature MAGNESIUM2.61.8 - 2.6 mg/dL05/20/2025 9:38 AM [facility] LABORATORYSpecimen (Source)Anatomical Location / LateralityCollection Method / VolumeCollection TimeReceived TimeBloodVenous blood / UnknownVenipuncture / Efibacx0305/20/2025 5:44 AM EST05/20/2025 9:23 AM EST Narrative Authorizing ProviderResult TypeResult StatusRamzulema BARRY BLOOD ORDERABLES Final ResultPerforming OrganizationAddressCity/State/ZIP CodePhone Number [facility] [address] [place] [address], * (ABNORMAL) Basic Metabolic Panel (05/20/2025 5:44 AM EST) Only the most recent of11 resultswithin the time period is included. ComponentValueRef RangeTest MethodAnalysis TimePerformed AtPathologist Signature [id number] - 146 mmol/L107/20/2024 9:38 AM [facility] LABORATORYPOTASSIUM3.83.5 - 5.0 mmol/L107/20/2024 9:38 AM [facility] RQWIYHHLCIQMSSDNII77(L)98 - 109 mmol/L107/20/2024 9:38 AM [facility] LABORATORYCARBON [id number] - 32 mmol/L107/20/2024 9:38 AM EST [facility] LABORATORYANION VTE932 - 15 mmol/L107/20/2024 9:38 AM [facility] LABORATORYBLOOD UREA TIAOAFEV76(H)5 - 27 mg/dL 05/20/2025 9:38 AM [facility] LABORATORYCREATININE1.59(H)0.40 - 1.00 mg/dL05/20/2025 9:38 AM [facility] LABORATORYComment: METHOD TRACEABLE TO IDMS HERFLYVNEULLWCH714(H)65 - 99 mg/dL05/20/2025 9:38 AM [facility] LABORATORYCALCIUM9.48.5 - 10.5 mg/dL05/20/2025 9:38 AM [facility]ORYEGFR Non-Race Vxcupxayb60(L)>=60 ml/min/1.73sq.m107/20/2024 9:38 AM [facility] LABORATORYComment: Reported eGFR is based on the CKD-EPI 2020 equation that does not use a race coefficient. Specimen (Source)Anatomical Location / LateralityCollection Method / Volume Collection TimeReceived TimeBloodVenous blood / UnknownVenipuncture / Unknown 05/20/2025 5:44 AM EST05/20/2025 9:23 AM EST Narrative Authorizing ProviderResult TypeResult StatusRamy Lee BARRY BLOOD ORDERABLES Final ResultPerforming OrganizationAddressCity/State/ZIP CodePhone Number [facility] [address] [place] [address], [place] [phone] * X-ray abdomen ap 1 view (05/19/2025 [...] on 05/19/2025 3:38 PM Authorizing ProviderResult TypeResult StatusTaylor Amada Al MDIMArielle DIAGNOSTIC IMAGING ORDERABLESFinal Result * (ABNORMAL) CK Total (05/19/2025 6:12 AM EST) Only the most recent of4 resultswithin the time period is included. ComponentValueRef RangeTest MethodAnalysis TimePerformed AtPathologist Signature CPK11(L)24 - 170 U/L107/20/2024 10:55 AM [facility] Specimen (Source)Anatomical Location / LateralityCollection Method / Volume Collection TimeReceived TimeBloodVenous blood / UnknownCentral Line / Unknown 05/19/2025 6:12 AM EST05/19/2025 6:23 AM EST Narrative Authorizing ProviderResult TypeResult StatusAlexandra Damon [employer]CNPL[employer] BLOOD ORDERABLESFinal ResultPerforming OrganizationAddressCity/State/ZIP CodePhone Number [facility] [address] [place] [address], * (ABNORMAL) Blood Gas, Arterial (05/19/2025 12:12 AM EST) Only the most recent of3 resultswithin the time period is included. ComponentValueRef RangeTest MethodAnalysis TimePerformed AtPathologist Signature Sample szzrVDUXWXTO40/06/2025 12:14 AM [facility] LABORATORYpH, Arterial 7.3867.350 - 7.1404105/19/2025 12:14 AM [facility] LABORATORYpCO2, Fwigyitt18.9(H)35.0 - 45.0 mmHg05/19/2025 12:14 AM [facility] PO2, Xxyalkxh58(L)80 - 100 mmHg05/19/2025 12:14 AM [facility]ORY Base, Lloyoo48.0(H)0.0 - 2.0 mmol/L107/19/2024 12:14 AM [facility] LABORATORYHCO3, Upnzfyvi93.9(H)22.0 - 26.0 mmol/L107/19/2024 12:14 AM [facility]ORY%O2 Saturation, Mfbjkoqe55.0(L)>90.0 %05/19/2025 12:14 AM [facility] LABORATORYAllen's testN/A107/19/2024 12:14 AM [facility] KHGKGJPGFGFMN200%05/19/2025 12:14 AM [facility] LABORATORYSample siteL Brach05/19/2025 12:14 AM [facility] LABORATORYInsp. O2 conc.28% 05/19/2025 12:14 AM [facility] LABORATORYSource Of OxygenRoom Air 05/19/2025 12:14 AM [facility] LABORATORYSpecimen (Source)Anatomical Location / LateralityCollection Method / VolumeCollection TimeReceived Time arterial (Blood, Arterial)05/19/2025 12:12 AM EST05/19/2025 12:14 AM EST Narrative Authorizing ProviderResult TypeResult StatusTaylor Amada BARRY BLOOD ORDERABLESFinal ResultPerforming OrganizationAddressCity/State/ZIP CodePhone Number [facility] [address] [place] [address], * X-ray chest 1 view (05/18/2025 4:16 [...] on 05/18/2025 4:30 PM Authorizing ProviderResult TypeResult StatusSwapna LOPEZG DIAGNOSTIC IMAGING ORDERABLESFinal Result * Potassium (05/18/2025 1:36 PM EST) Only the most recent of3 resultswithin the time period is included. ComponentValueRef RangeTest MethodAnalysis TimePerformed AtPathologist Signature POTASSIUM4.33.5 - 5.0 mmol/L107/18/2024 2:40 PM [facility] LABORATORYSpecimen (Source)Anatomical Location / LateralityCollection Method / VolumeCollection TimeReceived TimeBloodVenous blood / Csazmcj8505/18/2025 1:36 PM EST05/18/2025 1:46 PM EST Narrative Authorizing ProviderResult TypeResult StatusTaylalbina lA MDLAB BLOOD ORDERABLESFinal ResultPerforming OrganizationAddressCity/State/ZIP CodePhone Number [facility] [address] [place] [address], [place] [phone] * IR percutaneous placement nephrostomy tube left (05/16/2025 3:30 PM EST) Anatomical RegionLateralityModalityIRLeftX-Ray AngiographySpecimen (Source) Anatomical Location / LateralityCollection Method / VolumeCollection Time Received Time Narrative 05/16/2025 3:47 PM EST 1. Ultrasound guided puncture of left renal collecting system. 2. Left Antegrade nephrostogram. 3. Fluoroscopic guided placement of left 8 [place] percutaneous nephrostomy catheter. CLINICAL INDICATION: Left hydronephrosis [...] direct ultrasound needle visualization, and an ultrasound pharmaceutical sales representative image was obtained and saved [...] tract was further dilated, then an 8 [place] percutaneous nephrostomy catheter was introduced over the wire and formedin the renal pelvis during real-time fluoroscopic guidance. A fluoroscopic spot image was obtained and saved in PACS. The catheter was sutured to the skin with 2.0 Prolene sutures and connected to dependent drainage Reference Air Kerma = 15.4 mGy Fluoroscopy time: 1.8 minutes Saved images: 1 Estimated blood loss: Minimal Commuter Pilot: None. Complications: None. IMPRESSION: 1. ??Successful fluoroscopic guided placement of left 8 [place] percutaneous nephrostomy catheter connected to dependent drainage. [...] ComponentValueRef RangeTest MethodAnalysis TimePerformed AtPathologist Signature Sample swinOZIORT53/02/2025 11:53 AM [facility] LABORATORYpH, Venous 7.319(L)7.320 - 7.8783805/15/2025 11:53 AM [facility]ORATORYpCO2, Xhmsmo62.1(H)35.0 - 50.0 mmHg05/15/2025 11:53 AM [facility] pO2, Mraosx33(H)30 - 50 mmHg05/15/2025 11:53 AM [facility] Base, Dkrroy95.0(H)0.0 - 2.0 mmol/L107/15/2024 11:53 AM [facility] LABORATORYHCO3, Efhidk95.2(H)20.0 - 24.0 mmol/L107/15/2024 11:53 AM [facility]%O2 Saturation, Axtagl03.0%05/15/2025 11:53 AM [facility] LABORATORYAllen's testN/A107/15/2024 11:53 AM [facility] DXIPFZPADYLNH8206%05/15/2025 11:53 AM [facility] LABORATORYSample site N/A107/15/2024 11:53 AM [facility] LABORATORYInsp. O2 conc.28%05/15/2025 11:53 AM [facility] LABORATORYSource Of LmnmvnBV97/02/2025 11:53 AM [facility] LABORATORYSpecimen (Source)Anatomical Location / Laterality Collection Method / VolumeCollection TimeReceived TimevenousVenous blood / Rzyoftm0605/15/2025 11:50 AM EST05/15/2025 11:53 AM EST Narrative Authorizing ProviderResult TypeResult StatusGuy BARRY BLOOD ORDERABLES Final ResultPerforming OrganizationAddressCity/State/ZIP CodePhone Number [facility] [address] [place] [address], [place] * Protime & INR (05/15/2025 11:47 AM EST)ComponentValueRef RangeTest Method Analysis TimePerformed AtPathologist ZmdocqjlwJLAVESX46.39.8 - 13.2 sec 05/15/2025 12:31 PM [facility] LABORATORYINR1.00.9 - 1.2 05/15/2025 12:31 PM [facility] LABORATORYSpecimen (Source) Anatomical Location / LateralityCollection Method / VolumeCollection Time Received TimeBloodVenous blood / UnknownVenipuncture / Tjbowsu3605/15/2025 11:47 AM EST05/15/2025 12:11 PM EST Narrative Authorizing ProviderResult TypeResult StatusSiddshyanne BARRY BLOOD ORDERABLESFinal ResultPerforming OrganizationAddressCity/State/ZIP CodePhone Number [facility] [address] [place] [address], [place] [phone] * Liver panel (05/15/2025 4:51 AM EST) Only the most recent of3 resultswithin the time period is included. ComponentValueRef RangeTest MethodAnalysis TimePerformed AtPathologist Signature TOTAL PROTEIN6.46.0 - 8.0 g/dL05/15/2025 6:19 AM [facility] LABORATORYALBUMIN3.33.2 - 5.3 g/dL05/15/2025 6:19 AM [facility] LABORATORYBILIRUBIN,TOTAL0.50.3 - 1.2 mg/dL05/15/2025 6:19 AM [facility] LABORATORYALKALINE PGXMKCIGTTR7495 - 130 U/L107/15/2024 6:19 AM EST [facility] SXJAMOGAPPNWI49<=41 U/L107/15/2024 6:19 AM [facility]ORYALT3<=31 U/L107/15/2024 6:19 AM [facility] LABORATORYBILIRUBIN,DIRECT0.1<=0.4 mg/dL05/15/2025 6:19 AM [facility] LABORATORYSpecimen (Source)Anatomical Location / Laterality Collection Method / VolumeCollection TimeReceived TimeBloodVenous blood / UnknownVenipuncture / Zzeopjm5805/15/2025 4:51 AM EST05/15/2025 5:39 AM EST Narrative Authorizing ProviderResult TypeResult StatusSwapna BARRY BLOOD ORDERABLESFinal ResultPerforming OrganizationAddressCity/State/ZIP CodePhone Number [facility] [place] [address], * Blood culture #2 (05/14/2025 9:52 AM EDT) Only the most recent of2 resultswithin the time period is included. ComponentValueRef RangeTest MethodAnalysis TimePerformed AtPathologist Signature CULTURE RESULTSNO GROWTH 5 DAYS05/19/2025 10:01 AM [facility] LABORATORYSpecimen (Source)Anatomical Location / LateralityCollection Method / VolumeCollection TimeReceived TimeBloodVenous blood / UnknownVenipuncture / Izkjslz6005/14/2025 9:52 AM EDT107/14/2024 10:28 AM EDT Narrative [facility] - 05/19/2025 10:01 AM EST Suboptimal volume of blood collected, Results may be affected. Authorizing ProviderResult TypeResult StatusTerri Ramos APRN-CNPMICROBIOLOGY - GENERAL ORDERABLESFinal ResultPerforming OrganizationAddressCity/State/ZIP CodePhone Number [facility] [place] [address], * (ABNORMAL) B-type natriuretic peptide (05/14/2025 5:19 AM EDT)ComponentValue Ref RangeTest MethodAnalysis TimePerformed AtPathologist SignatureBNP1,173(H) <=100 pg/mL05/14/2025 9:11 AM [facility] LABORATORYSpecimen (Source)Anatomical Location / LateralityCollection Method / VolumeCollection TimeReceived TimeBloodVenous blood / UnknownVenipuncture / Ptvxomk9105/14/2025 5:19 AM EDT107/14/2024 6:14 AM EDT Narrative Authorizing ProviderResult TypeResult StatusVidhit Lenora DOLAB BLOOD ORDERABLES Final ResultPerforming OrganizationAddressCity/State/ZIP CodePhone Number [facility] [address] [place] [address], * (ABNORMAL) Ionized calcium (05/14/2025 5:19 AM EDT)ComponentValueRef RangeTest MethodAnalysis TimePerformed AtPathologist SignatureIONIZED CALCIUM - ICAN4.4 (L)4.5 - 5.3 mg/dL05/14/2025 8:05 AM [facility] Specimen (Source)Anatomical Location / LateralityCollection Method / Volume Collection TimeReceived TimeBloodVenous blood / UnknownVenipuncture / Unknown 05/14/2025 5:19 AM EDT107/14/2024 6:17 AM EDT Narrative Authorizing ProviderResult TypeResult StatusRamy A Mina MDLAB BLOOD ORDERABLES Final ResultPerforming OrganizationAddressCity/State/ZIP CodePhone Number [facility] [address] [place] [address], * CT brain without contrast (05/13/2025 10:42 [...] Jackson Ritter MD on 05/13/2025 10:49 AM I, Tomer Daily MD have personally reviewed the image(s) and agree withand/or edited the report Finalized by Tomer Daily MD on 05/13/2025 11:06 AM Authorizing ProviderResult TypeResult StatusNuris Leonardo PA-CIMG CT ORDERABLES Final Result * Lavender Top On Ice (05/13/2025 9:01 AM EDT)ComponentValueRef RangeTest Method Analysis TimePerformed AtPathologist SignatureExtra TubeAuto Resulted 05/13/2025 10:02 AM [facility] LABORATORYSpecimen (Source) Anatomical Location / LateralityCollection Method / VolumeCollection Time Received TimeBloodVenous blood / UnknownVenipuncture / Huqhutd0905/13/2025 9:01 AM EDT1 9:11 AM EDT Narrative Authorizing ProviderResult TypeResult StatusAmhossein Drummond MDLAB BLOOD ORDERABLES Final ResultPerforming OrganizationAddressCity/State/ZIP CodePhone Number [facility] [address] [place] [address], [place] [phone] * Lavender Top (05/13/2025 5:29 AM EDT)ComponentValueRef RangeTest Method Analysis TimePerformed AtPathologist SignatureExtra TubeAuto Resulted 05/13/2025 7:01 AM [facility]ORATORYSpecimen (Source) Anatomical Location / LateralityCollection Method / VolumeCollection Time Received TimeBloodVenous blood / Kdjojrq7005/13/2025 5:29 AM EDT1 5:53 AM EDT Narrative Authorizing ProviderResult TypeResult StatusGuy BARRY BLOOD ORDERABLES Final ResultPerforming OrganizationAddressCity/State/ZIP CodePhone Number [facility] [address] [place] [address], * Lactate w/ Reflex (05/12/2025 11:17 AM EDT)ComponentValueRef RangeTest Method Analysis TimePerformed AtPathologist SignatureLACTATE W/REFLEX1.60.4 - 2.0 mmol/L1 12:03 PM [facility]ORATORYSpecimen (Source)Anatomical Location / LateralityCollection Method / VolumeCollection TimeReceived TimeBloodVenous blood / UnknownVenipuncture / Gwirigy8905/12/2025 11:17 AM EDT1 11:29 AM EDT Narrative [facility] - 05/12/2025 12:03 PM EDT Result did not trigger repeat Lactate, re-order if needed. Authorizing ProviderResult TypeResult StatusGuy BARRY BLOOD ORDERABLES Final ResultPerforming OrganizationAddressCity/State/ZIP CodePhone Number [facility] [address] [place] [address], * Nocturnal oximetry study (05/12/2025 7:45 AM EDT) Narrative Authorizing ProviderResult TypeResult StatusMoaldo Couch [facility] ORDERABLESEdited Result - Final * (ABNORMAL) Hemoglobin A1c (05/12/2025 5:54 AM EDT)ComponentValueRef RangeTest MethodAnalysis TimePerformed AtPathologist SignatureHEMOGLOBIN A1C6.3(H)4.4 - 5.6 %05/12/2025 12:00 PM [facility] LABORATORYComment: ?ADA Guidelines ?Result ?HgbA1c ? Normal : ? less than 5.7 % ? Prediabetes : ?5.7 % ??to 6.4 % Diabetes : > 6.4 % ?Use with caution in patients with abnormal hemoglobin variants as ??the half-life of red blood cells and in vivo glycation rates are ??affected. EST. AVERAGE WCBPZKX015tc/dL05/12/2025 12:00 PM [facility] LABORATORYSpecimen (Source)Anatomical Location / LateralityCollection Method / VolumeCollection TimeReceived TimeBloodVenous blood / UnknownVenipuncture / Uipbrre9205/12/2025 5:54 AM EDT1 5:54 AM EDT Narrative Authorizing ProviderResult TypeResult StatusAmhossein Drummond MDLAB BLOOD ORDERABLES Final ResultPerforming OrganizationAddressCity/State/ZIP CodePhone Number [facility] [address] [place] [address], * Echo complete W/ contrast (05/10/2025 9:42 AM EDT)ComponentValueRef RangeTest MethodAnalysis TimePerformed AtPathologist SignatureLVOT stroke hsgyeg25.53ml NDJJGEEAZ2202 - 44 %XCELERALVIDd4.704.07 - 5.65 cmXCELERALVIDs3.302.41 - 3.65 cmXCELERAIVS1.400.6 - 1.1 cmXCELERAPW0.900.6 - 1.1 cmXCELERALVOT diameter2.10 cmXCELERATDI6.96cm/sXCELERAMV TDI E' (medial)3.48cm/sXCELERALA Volume Index 31.6mL/h7BPAPEAWL/A ratio1.17XCELERAE wave deceleration doyn014.00msecXCELERA MV Peak E Bsz087.00cm/sXCELERAMV Peak A Ljl097.00cm/sXCELERALA size4.50cm XCELERAAortic root3.80cmXCELERALA jvdjih47.18tc8ZBTBKDFZO diastolic dimension (basal)29.6bfHYRYCUORVNAH7.06cmXCELERAAV peak pag797.00cm/sXCELERALVOT peak vel0.87m/sXCELERAAV VTI44.60cmXCELERALVOT peak VTI16.90cmXCELERAAV mean gradient7.00mmHgXCELERAAV peak xwrtxinz00.02mmHgXCELERAAV valve area1.31 XCELERAValve area - Index0.7XCELERAMV mean gradient5.00mmHgXCELERAMV peak gradient9.24mmHgXCELERAMV VTI38.10cmXCELERAMV valve area by continuity eq1.54 XCELERAMV pressure 1/2 time40.00msXCELERAMV valve area p 1/2 method5.50cm2 XCELERATR Peak Vel3.3m/sXCELERATR peak .82mmHgXCELERAPV peak gradient2.23mmHgXCELERALV ESV A2C56.70mLXCELERALV ESV A4C52.90mLXCELERAMitral Valve Max Velocity1.52cm/sXCELERALV RWT 2D38.30XCELERAAV Velocity Ratio0.38 XCELERALeft Ventricle Pixe940.203780690705370pTYAEPOACxuytfgpfmtcqxfs Septum Diastolic Thickness by 6B54diSPMOSNDPwx. RA ihwwdwcf1plZrCOHTPMPMR Peak Systolic Fubbexrm25qzYdTPKBXXKKB area11.6iu8TRBELMQHZDSSB6.84XCELERAZLVIDD -0.20XCELERAEnergy loss index19.61XCELERAAnatomical RegionLateralityModality ChestN/AUltrasoundSpecimen (Source)Anatomical Location [...] globally hypokinetic. Authorizing ProviderResult TypeResult StatusRamy Lee Mina [facility] ECHO ORDERABLES Final Result * Vas venous [...] phone number besidetheir name. Authorizing ProviderResult TypeResult StatusMoaldo Couch MDCV VASCULAR ORDERABLESFinal Result * (ABNORMAL) Urine protein creatinine ratio (05/09/2025 11:14 PM EDT)Component ValueRef RangeTest MethodAnalysis TimePerformed AtPathologist SignatureURINE PROTEIN, RANDOM (MG/L)1,090(H)<120 mg/L1 12:04 AM [facility] LABORATORYURINE CREATININE,RDM50.82mg/dL05/10/2025 12:04 AM [facility] LABORATORYU/PRO/SHREDDING SPECIALIST RATIO CALC2.14(H)<=0. 12:04 AM [facility] LABORATORYSpecimen (Source)Anatomical Location / LateralityCollection Method / VolumeCollection TimeReceived TimeUrine (Urine, Indwelling Catheter)05/09/2025 11:14 PM EDT1 11:28 PM EDT Narrative [facility] - 05/10/2025 12:04 AM EDT Nephrotic Syndrome is associated with ratios >3.5 Authorizing ProviderResult TypeResult StatusVibenjamin Lenoar DOURINE ORDERABLESFinal ResultPerforming OrganizationAddressCity/State/ZIP CodePhone Number [facility] [address] [place] [phone], * Urine Creatinine,random (05/09/2025 11:14 PM EDT)ComponentValueRef RangeTest MethodAnalysis TimePerformed AtPathologist SignatureURINE CREATININE,RDM50.82 mg/dL05/10/2025 12:04 AM [facility] LABORATORYSpecimen (Source)Anatomical Location / LateralityCollection Method / VolumeCollection TimeReceived TimeUrine (Urine, Indwelling Catheter)05/09/2025 11:14 PM EDT 05/09/2025 11:28 PM EDT Narrative Authorizing ProviderResult TypeResult StatusGustavo Enriquez MDURINE ORDERABLESFinal ResultPerforming OrganizationAddressCity/State/ZIP CodePhone Number [facility] [address] [place] [address], * Sodium, urine, random (05/09/2025 11:14 PM EDT)ComponentValueRef RangeTest MethodAnalysis TimePerformed AtPathologist SignatureURINE SODIUM,WOCDWN00 mmol/L1 12:55 AM [facility] LABORATORYSpecimen (Source)Anatomical Location / LateralityCollection Method / VolumeCollection TimeReceived TimeUrine (Urine, Indwelling Catheter)05/09/2025 11:14 PM EDT 05/09/2025 11:28 PM EDT Narrative Authorizing ProviderResult TypeResult StatusVidhit Lenora DOURINE ORDERABLESFinal ResultPerforming OrganizationAddressCity/State/ZIP CodePhone Number [facility] [address] [place] [address], * (ABNORMAL) Urinalysis (05/09/2025 11:14 PM EDT)ComponentValueRef RangeTest MethodAnalysis TimePerformed AtPathologist SignatureCOLORYellowYellow 05/10/2025 12:15 AM [facility] LABORATORYTURBIDITYHazy(A) Clear05/10/2025 12:15 AM [facility] LABORATORYSPECIFIC GRAVITY1.0131.003 - 1.3762405/10/2025 12:15 AM [facility] CNYOKLJXVVKAUJSOZXzvdonsxDzucceth96/28/2025 12:15 AM [facility] LABORATORYPH,URINE6.05.0 - 8.510 12:15 AM [facility] LABORATORYLEUKOCYTE ESTERASELarge(A)Zbuklmzw42/28/2025 12:15 AM EDT [facility] HQIYCWSOGYONFGJUZ90 mg/dL(A)Iwrrhuql34/28/2025 12:15 AM [facility] LABORATORYKETONES (URINE)NegativeNegative 05/10/2025 12:15 AM [facility] LABORATORYUROBILINOGEN<1.1 eu/dL<1.1 eu/dL05/10/2025 12:15 AM [facility] BILIRUBIN (URINE)VuicxolmKohllzla03/28/2025 12:15 AM [facility] LABORATORYBLOOD/ONMFpfeicmtMhfinris88/28/2025 12:15 AM [facility] LABORATORYHYALINE CASTS6(H)0 - 12:15 AM EDT [facility] LABORATORYMUCOUSPresent(A)None05/10/2025 12:15 AM EDT [facility] LABORATORYR.B.CELLS20 - 12:15 AM EDT [facility] LABORATORYSQUAMOUS OETKGJFTZP04 - 12:15 AM [facility] LABORATORYW.B.CELLS75(H)0 - 12:15 AM [facility] LABORATORYGLUCOSE (URINE)NegativeNegative 05/10/2025 12:15 AM [facility] LABORATORYSpecimen (Source) Anatomical Location / LateralityCollection Method / VolumeCollection Time Received TimeUrine (Urine, Indwelling Catheter)05/09/2025 11:14 PM EDT 05/09/2025 11:28 PM EDT Narrative Authorizing ProviderResult TypeResult StatusVidhit Lenora DOURINE ORDERABLESFinal ResultPerforming OrganizationAddressCity/State/ZIP CodePhone Number [facility] [address] [place] [address], * (ABNORMAL) Urine Culture Urine, Indwelling Catheter (05/09/2025 11:14 PM EDT) ComponentValueRef RangeTest MethodAnalysis TimePerformed AtPathologist SignatureCULTURE RESULTS>100,000 CFU/mL Maritza glabrata(A)05/18/2025 9:40 AM [facility] LABORATORYCULTURE LPKBORJ79,000-50,000 CFU/mL Vancomycin resistant Enterococcus faecium(A)05/18/2025 9:40 AM [facility] LABORATORYComment: Ampicillin or Amoxicillin is the drug of choice for uncomplicated cystitis caused by enterococci. Cephalosporins are inappropriate. Specimen (Source)Anatomical Location / LateralityCollection Method / Volume Collection TimeReceived TimeUrine (Urine, Indwelling Catheter)05/09/2025 11:14 PM EDT1 11:28 PM EDT Narrative [facility] - 05/18/2025 9:40 AM EST Urine [...] Edited Result - FinalPerforming OrganizationAddressCity/State/ZIP CodePhone Number [facility] [address] [place] [address], * Cytoplasmic Neutrophilic Ab (ANCA), S (05/09/2025 11:53 AM EDT)ComponentValue Ref RangeTest MethodAnalysis TimePerformed AtPathologist SignatureC-ANCA GgltszibWbjmcoug42/28/2025 2:51 PM EDAD[facility] LABORATORIESP-ANCANegative Hcivwjfo02/28/2025 2:51 PM [facility] LABORATORIESComment: Negative for cANCA and pANCA patterns by immunofluorescence. ADDITIONAL INFORMATION This test was developed and its performance characteristics determined by [facility] in a manner consistent with CLIA requirements. This test has not been cleared or approved by the [place]. Food and Drug Administration. Test Performed by: [facility] - [address] [address] Is Support Analyst: Florence Shukla Ph.D.; CLIA# [id number] Specimen (Source)Anatomical Location / LateralityCollection Method / Volume Collection TimeReceived TimeBloodVenous blood / UnknownVenipuncture / Unknown 05/09/2025 11:53 AM EDT1 12:32 PM EDT Narrative Authorizing ProviderResult TypeResult StatusVidhit Lenora DOLAB BLOOD ORDERABLES Final ResultPerforming OrganizationAddressCity/State/ZIP CodePhone Number [facility] [address] [place] [address], [place] * Glomerular basement membrane IgG AB (05/09/2025 11:52 AM EDT)ComponentValueRef RangeTest MethodAnalysis TimePerformed AtPathologist SignatureGBM IGG AB<0.2 <1.0 AI05/09/2025 4:36 PM [facility] LABORATORYSpecimen (Source)Anatomical Location / LateralityCollection Method / VolumeCollection TimeReceived TimeBloodVenous blood / UnknownVenipuncture / Vjflsri5205/09/2025 11:52 AM EDT1 12:32 PM EDT Narrative Authorizing ProviderResult TypeResult StatusVidhit Lenora DOLAB BLOOD ORDERABLES Final ResultPerforming OrganizationAddressCity/State/ZIP CodePhone Number [facility] [address] [place] [address], * Proteinase 3 AB PR3 (05/09/2025 11:52 AM EDT)ComponentValueRef RangeTest MethodAnalysis TimePerformed AtPathologist SignaturePROTEINASE 3 IGG AB<0.2 <1.0 AI05/09/2025 4:36 PM [facility] LABORATORYSpecimen (Source)Anatomical Location / LateralityCollection Method / VolumeCollection TimeReceived TimeBloodVenous blood / UnknownVenipuncture / Vbpkxeb5905/09/2025 11:52 AM EDT1 12:32 PM EDT Narrative Authorizing ProviderResult TypeResult StatusVidhit Lenora DOLAB BLOOD ORDERABLES Final ResultPerforming OrganizationAddressCity/State/ZIP CodePhone Number [facility] [address] [place] [address], * Myeloperoxidase AB (05/09/2025 11:52 AM EDT)ComponentValueRef RangeTest Method Analysis TimePerformed AtPathologist SignatureMYELOPEROXIDASE AB<0.2<1.0 AI 05/09/2025 4:36 PM [facility] LABORATORYSpecimen (Source) Anatomical Location / LateralityCollection Method / VolumeCollection Time Received TimeBloodVenous blood / UnknownVenipuncture / Susbiih2105/09/2025 11:52 AM EDT1 12:32 PM EDT Narrative Authorizing ProviderResult TypeResult StatusVidhit Lenora DOLAB BLOOD ORDERABLES Final ResultPerforming OrganizationAddressCity/State/ZIP CodePhone Number [facility] [address] [place] [address], * (ABNORMAL) Free light chains (05/09/2025 11:52 AM EDT)ComponentValueRef Range Test MethodAnalysis TimePerformed AtPathologist SignatureFREE CJ/LAMBD RATIO 1.540.26 - 1.6505/09/2025 5:17 PM [facility] LABORATORYFREE KAPPA LT CHAINS7.98(H)0.33 - 1.94 mg/dL05/09/2025 5:17 PM [facility] LABORATORYFREE LAMBDA LT CHAINS5.17(H)0.57 - 2.63 mg/dL05/09/2025 5:17 PM [facility] LABORATORYSpecimen (Source)Anatomical Location / LateralityCollection Method / VolumeCollection TimeReceived TimeBloodVenous blood / UnknownVenipuncture / Lfcmanz5805/09/2025 11:52 AM EDT1 12:32 PM EDT Narrative Authorizing ProviderResult TypeResult StatusVidhit Lenora DOLAB BLOOD ORDERABLES Final ResultPerforming OrganizationAddressCity/State/ZIP CodePhone Number [facility] [address] [place] [address], [place] [phone] * Complement profile (C3 AND C4) (05/09/2025 11:52 AM EDT)ComponentValueRef RangeTest MethodAnalysis TimePerformed AtPathologist SignatureCOMPLEMENT C3125 86 - 184 mg/dL05/09/2025 2:23 PM [facility] COMPLEMENT Z43982 - 47 mg/dL05/09/2025 2:23 PM [facility] LABORATORYSpecimen (Source)Anatomical Location / LateralityCollection Method / VolumeCollection TimeReceived TimeBloodVenous blood / UnknownVenipuncture / Gogtwfc9305/09/2025 11:52 AM EDT1 12:32 PM EDT Narrative Authorizing ProviderResult TypeResult StatusVidhit Lenora DOLAB BLOOD ORDERABLES Final ResultPerforming OrganizationAddressCity/State/ZIP CodePhone Number [facility] [address] [place] [address], [place] [phone] * (ABNORMAL) Iron and TIBC (05/09/2025 11:52 AM EDT)ComponentValueRef RangeTest MethodAnalysis TimePerformed AtPathologist XjppmdktlPKLO7249 - 170 ug/dL 05/09/2025 3:15 PM [facility] EWZPOPVGPNUWLFUBPUVDN279522 - 336 mg/dL05/09/2025 3:15 PM [facility] LABORATORYIRON BINDING 237(L)250 - 425 ug/dL05/09/2025 3:15 PM [facility] IRON MEVCCRCHDS4241 - 50 % IXEQDYTEBZ23/27/2025 3:15 PM [facility] LABORATORYSpecimen (Source)Anatomical Location / LateralityCollection Method / VolumeCollection TimeReceived TimeBloodVenous blood / Unknown Venipuncture / Wngxrsh0605/09/2025 11:52 AM EDT1 12:32 PM EDT Narrative Authorizing ProviderResult TypeResult StatusRamy Lee BARRY BLOOD ORDERABLES Final ResultPerforming OrganizationAddressCity/State/ZIP CodePhone Number [facility] [address] [place] [address], [place] [phone] * VIVEK Screen w/ Reflex (05/09/2025 11:52 AM EDT) Only the most recent of2 resultswithin the time period is included. ComponentValueRef RangeTest MethodAnalysis TimePerformed AtPathologist Signature VIVEK SCREEN W/GNUWKQHfaodxhbBxbugqoe89/27/2025 4:35 PM [facility] LABORATORYSpecimen (Source)Anatomical Location / LateralityCollection Method / VolumeCollection TimeReceived TimeBloodVenous blood / Unknown Venipuncture / Kckzljn7505/09/2025 11:52 AM EDT1 12:32 PM EDT Narrative [facility] - 05/09/2025 4:35 PM EDT Testing performed using multiplex flow immunoassay. Eleven difference antigens associated with systemic autoimmunie diseases (dsDNA, Sm, Sm/EARLY MORNING, EARLY MORNING, Chromatin, SSA, SSB, Mary-1, Sc170, Ribo P, Centromere B) are included in this sreening tests. Authorizing ProviderResult TypeResult StatusRamy Lee BARRY BLOOD ORDERABLES Final ResultPerforming OrganizationAddressCity/State/ZIP CodePhone Number [facility] [address] [place] [address], * (ABNORMAL) Protein electrophoresis, serum (05/09/2025 11:52 AM EDT)Component ValueRef RangeTest MethodAnalysis TimePerformed AtPathologist SignatureTOTAL PROTEIN5.7(L)6.0 - 8.0 g/dL05/10/2025 12:00 PM [facility] LABORATORYALPHA 1 GLOBULIN0.40.1 - 0.4 g/dL05/10/2025 12:00 PM [facility] LABORATORYALPHA 2 GLOBULIN0.90.4 - 1.1 g/dL05/10/2025 12:00 PM [facility] LABORATORYBETA GLOBULIN0.70.5 - 1.2 g/dL 05/10/2025 12:00 PM [facility] LABORATORYGAMMA GLOBULIN0.80.5 - 1.6 g/dL05/10/2025 12:00 PM [facility]ORATORYProtein Electrophoresis InterpUnremarkable protein distribution, no monoclonal bands 05/10/2025 12:00 PM [facility] LABORATORYAlbumin2.9(L)3.4 - 5.3 g/dL05/10/2025 12:00 PM [facility] LABORATORYSpecimen (Source)Anatomical Location / LateralityCollection Method / VolumeCollection TimeReceived TimeBloodVenous blood / UnknownVenipuncture / Juzmtck3705/09/2025 11:52 AM EDT1 12:32 PM EDT Narrative Authorizing ProviderResult TypeResult StatusVidhit Lenora DOLAB BLOOD ORDERABLES Final ResultPerforming OrganizationAddressCity/State/ZIP CodePhone Number [facility] [address] [place] [address], * Folate (05/09/2025 11:52 AM EDT)ComponentValueRef RangeTest MethodAnalysis TimePerformed AtPathologist SignatureFOLIC ACID22.1>5.8 ng/mL05/09/2025 3:13 PM [facility] LABORATORYSpecimen (Source)Anatomical Location / LateralityCollection Method / VolumeCollection TimeReceived TimeBloodVenous blood / UnknownVenipuncture / Coxhgou0505/09/2025 11:52 AM EDT1 12:32 PM EDT Narrative Authorizing ProviderResult TypeResult StatusRamy Lee BARRY BLOOD ORDERABLES Final ResultPerforming OrganizationAddressCity/State/ZIP CodePhone Number [facility] [address] [place] [address], * Ferritin (05/09/2025 11:52 AM EDT)ComponentValueRef RangeTest MethodAnalysis TimePerformed AtPathologist UqefiwahyDSVOYGRP29016 - 307 ng/mL05/09/2025 3:10 PM [facility] LABORATORYSpecimen (Source)Anatomical Location / LateralityCollection Method / VolumeCollection TimeReceived TimeBloodVenous blood / UnknownVenipuncture / Crrtcfy9005/09/2025 11:52 AM EDT1 12:32 PM EDT Narrative Authorizing ProviderResult TypeResult StatusRamy Lee BARRY BLOOD ORDERABLES Final ResultPerforming OrganizationAddressCity/State/ZIP CodePhone Number [facility] [address] [place] [address], * Vitamin B12 (05/09/2025 11:52 AM EDT)ComponentValueRef RangeTest Method Analysis TimePerformed AtPathologist SignatureVITAMIN [id number] - 914 pg/mL 05/09/2025 3:14 PM [facility] LABORATORYSpecimen (Source) Anatomical Location / LateralityCollection Method / VolumeCollection Time Received TimeBloodVenous blood / UnknownVenipuncture / Uctvquu8605/09/2025 11:52 AM EDT1 12:32 PM EDT Narrative Authorizing ProviderResult TypeResult StatusRamzulema Enriquez MDLAB BLOOD ORDERABLES Final ResultPerforming OrganizationAddressCity/State/ZIP CodePhone Number [facility] [address] [place] [address], * DNA double-stranded (dsDNA) Abs (05/09/2025 5:56 AM EDT)ComponentValueRef RangeTest MethodAnalysis TimePerformed AtPathologist SignatureDouble Stranded DNA Ab<1<5 IU/ML05/09/2025 1:54 PM [facility] Specimen (Source)Anatomical Location / LateralityCollection Method / Volume Collection TimeReceived TimeBloodVenous blood / UnknownVenipuncture / Unknown 05/09/2025 5:56 AM EDT1 6:09 AM EDT Narrative [facility] - 05/09/2025 1:54 PM EDT Interpretation < 5 Negative 5 - 9 Indeterminate > 9 Positive Authorizing ProviderResult TypeResult StatusVidhit Lenora DOLAB BLOOD ORDERABLES Final ResultPerforming OrganizationAddressCity/State/ZIP CodePhone Number [facility] [address] [place] [address], * Rheumatoid factor (05/09/2025 5:56 AM EDT)ComponentValueRef RangeTest Method Analysis TimePerformed AtPathologist SignatureRHEUMATOID FACTOR<10<20 IU/mL 05/09/2025 12:10 PM [facility] LABORATORYSpecimen (Source) Anatomical Location / LateralityCollection Method / VolumeCollection Time Received TimeBloodVenous blood / UnknownVenipuncture / Ayprruj4305/09/2025 5:56 AM EDT1 6:09 AM EDT Narrative Authorizing ProviderResult TypeResult StatusVidhit Lenora DOLAB BLOOD ORDERABLES Final ResultPerforming OrganizationAddressCity/State/ZIP CodePhone Number [facility] [address] [place] [address], * Uric acid (05/09/2025 5:56 AM EDT)ComponentValueRef RangeTest MethodAnalysis TimePerformed AtPathologist SignatureURIC ACID6.42.6 - 7.2 mg/dL05/09/2025 12:10 PM [facility] LABORATORYSpecimen (Source)Anatomical Location / LateralityCollection Method / VolumeCollection TimeReceived Time BloodVenous blood / UnknownVenipuncture / Btbghbb5005/09/2025 5:56 AM EDT 05/09/2025 6:09 AM EDT Narrative Authorizing ProviderResult TypeResult StatusVidhit Lenora DOLAB BLOOD ORDERABLES Final ResultPerforming OrganizationAddressCity/State/ZIP CodePhone Number [facility] [address] [place] [address], [place] [phone] * (ABNORMAL) Comprehensive metabolic panel (05/09/2025 5:56 AM EDT)Component ValueRef RangeTest MethodAnalysis TimePerformed AtPathologist SignatureSODIUM [id number] - 146 mmol/L1 6:42 AM [facility] POTASSIUM4.03.5 - 5.0 mmol/L1 6:42 AM [facility] QOBNTJRNJDWSQDEAJZ53(L)98 - 109 mmol/L1 6:42 AM [facility] LABORATORYCARBON BUYROKN09(H)22 - 32 mmol/L1 6:42 AM [facility] LABORATORYANION GAP85 - 15 mmol/L1 6:42 AM EDT [facility] LABORATORYBLOOD UREA FYESBMCP38(H)5 - 27 mg/dL 05/09/2025 6:42 AM [facility] LABORATORYCREATININE1.86(H)0.40 - 1.00 mg/dL05/09/2025 6:42 AM [facility] LABORATORYComment: METHOD TRACEABLE TO IDMS THMQLKYBLZCVVZB742(H)65 - 99 mg/dL05/09/2025 6:42 AM [facility] LABORATORYCALCIUM9.18.5 - 10.5 mg/dL05/09/2025 6:42 AM [facility] LABORATORYTOTAL PROTEIN5.7(L)6.0 - 8.0 g/dL05/09/2025 6:42 AM [facility] LABORATORYALBUMIN3.0(L)3.2 - 5.3 g/dL05/09/2025 6:42 AM [facility] LABORATORYALKALINE AGXMDVETTGV1950 - 130 U/L1 6:42 AM [facility] KIBNOVONKMOZD41<=41 U/L1 6:42 AM [facility] LABORATORYALT3<=31 U/L1 6:42 AM [facility] LABORATORYBILIRUBIN,TOTAL0.50.3 - 1.2 mg/dL05/09/2025 6:42 AM [facility] LABOR[facility]ORYEGFR Non-Race Xdwxngogk14(L)>=60 ml/min/1.73sq.m 05/09/2025 6:42 AM [facility] LABORATORYComment: Reported eGFR is based on the CKD-EPI 2020 equation that does not use a race coefficient. Specimen (Source)Anatomical Location / LateralityCollection Method / Volume Collection TimeReceived TimeBloodVenous blood / UnknownVenipuncture / Unknown 05/09/2025 5:56 AM EDT1 6:09 AM EDT Narrative Authorizing ProviderResult TypeResult StatusRandaxa BARRY BLOOD ORDERABLES Final ResultPerforming OrganizationAddressCity/State/ZIP CodePhone Number [facility] [address] [place] [address], [place] [phone] * CT abdomen and pelvis without contrast [...] (Latest Code Status on File) Date ActivatedDate JndiwnttcxxDvlnjdea16/26/2025 8:30 PM05/20/2025 1:51 PM Care Teams Team MemberRelationshipSpecialtyStart DateEnd Date Olivia Cazares MD [address] [place] [address] PCP - GeneralFamily Kizktrzd15/27/25
--- OUTSIDE RECORDS SUMMARY | 2025-07-02 13:07 | XMS_ITS | Clinical Summary ---
Author Organization [facility] Address [address] [place] [id number] Care Team Providers Care Audio Tape Librarian Name Role Phone Yaniv Natarajan MD Unavailable [phone] Allergies No known active allergies Medications MedicationSigDispense QuantityRefillsLast FilledStart DateEnd DateStatus allopurinol (ZYLOPRIM) 300 mg tablet Take 300 mg by mouth once daily.Active ascorbic acid, vitamin C, (VITAMIN C) 500 mg tablet Take 500 mg by mouth.Active carvedilol (COREG) 3.125 mg tablet Take 3.125 mg by mouth.5Active Cholecalciferol, Vitamin D3, 125 mcg (5,000 unit) cap Take 5,000 Units by mouth once daily.5Active insulin glargine 100 unit/mL (3 mL) Inject 20 Units subcutaneously.5Active potassium chloride ER (KLOR-CON M10) 10 mEq tablet Take 10 mEq by mouth.Active bumetanide (BUMEX) 2 mg tablet 2 mg every 48 hours.5Active ondansetron orally disintegrating (ZOFRAN ODT) 4 mg disintegrating tablet Take 4 mg by mouth every 8 hours as needed for nausea/vomiting.Active gabapentin (NEURONTIN) 300 mg capsule Take 300 mg by mouth two times a day.5Active Active Problems No known active problems Encounters DateTypeDepartmentCare JwvcIbkshunkwrr90/18/2025Telephone Internal Medicine [address] [place] [address] Romel Maria MD Patient Batqbgjd84/17/2025Telephone Urology [address] [address] Romel Maria MD Gaikcgwcxp20/16/2025 10:00 AM ESTNurse Visit Urology [address] [place] [address] Nurse Kalyan Jamison [facility] Recurrent UTI (Primary Dx); Presence of other specified devices; Hydronephrosis, unspecified hydronephrosis type06/28/2025 8:42 AM EST - 06/28/2025 11:59 PM ESTHospital Encounter Radiology [address] [place] [address] Hydronephrosis, unspecified hydronephrosis type [N13.30] Discharge Disposition: Home06/28/2025 8:00 AM ESTOffice Visit Urology [address] [place] [address] Romel Maria MD Hydronephrosis, unspecified hydronephrosis type (Primary Dx); Presence of other specified devices; Recurrent urinary tract infection; Recurrent UTI06/28/2025Radiology Radiology [address] [place] [address] [address] Altamirano RT(R) Radiology XR06/28/20255137Psmdhh14/03/2025Transcribe Orders Referring Physician [address] [place] [address] Yaniv Natarajan MD Other hydronephrosis (Primary Dx)from Last 3 Months Social History Tobacco UseTypesPacks/DayYears UsedDateSmoking Tobacco: Never Assessed CommentsUnknownSex and Gender InformationValueDate RecordedSex Assigned at Not on fileLegal OszRolbtg92/03/2025 12:53 PM ESTGender IdentityNot on file Sexual OrientationNot on file Last Filed Vital Signs Vital SignReadingTime TakenCommentsBlood Xsjtflig997/51108/29/2024 8:14 AM EST Sqihw031706/28/2025 8:14 AM ESTTemperature--Respiratory Rate--Oxygen Saturation-- Inhaled Oxygen Concentration--Aunvto13.2 kg (157 lb)06/28/2025 8:14 AM ESTHeight --Body Mass Index-- Plan of Treatment DateTypeDepartmentCare Team (Latest Contact Info)Gxdgwzmaurm10/28/2026Hospital Encounter [facility] Operating Room [address] [place] [address] Romel Maria MD [address] [place] [address] Hydronephrosis, unspecified hydronephrosis type [N13.30], Presence of other specified devices [Z97.8], Recurrent urinary tract infection [N39.0]08/25/2025 9:40 AM [facility] Urology [address] [place] [address] Romel Maria MD [address] [place] [address] post opNamePriorityAssociated DiagnosesDate/TimeCYSTOURETHROSCOPY W/ URETEROSCOPY AND/OR PYELOSCOPY W/ LITHOTRIPSY INCLUDE INSERTION OF INDWELLING U RETERAL STENT Hydronephrosis, unspecified hydronephrosis type Presence of other specified devices Recurrent urinary tract infection Health MaintenanceDue DateLast DoneCommentsAnxiety Rdpcceiyh38/22/1963Depression Zbsgfgdby88/22/1963Shingrix Vaccine (1 of 2)1995Medicare Annual Wellness Visit05/14/2010one Density Eaykudsmy05/22/2010DTaP,Tdap,Td Vaccine (1 - Tdap) RSV Vaccine (1 - 1-dose 75+ series)2020Advance Directive Ayjsgmczrt89/01/2025Covid-19 Vaccine ( season)2025 06/17/2022, 04/13/2021, 08/30/2020, Additional history existsInfluenza Vaccine (#1)/, 04/30/2011Diabetes Awsduokaa49/07/61688307/20/2024, 05/19/2025, 05/18/2025, Additional history existsPneumococcal Vaccine: 50+ Xeypbmzpp64/01/2018, 10/30/2016, 10/12/2016 Procedures Procedure NamePriorityDate/TimeAssociated DiagnosisCommentsBACTERIAL CULTURE, NIKYHWkvmhvh78/16/2025 11:56 AM EST Recurrent UTI XR ABDOMEN 2V ROUTINE SUPINE W UPRIGHT/DECUB/IVMBMFI70/16/2025 9:11 AM EST Hydronephrosis, unspecified hydronephrosis type from Last 3 Months Results * BACTERIAL CULTURE, URINE (06/28/2025 11:56 AM EST)ComponentValueRef RangeTest MethodAnalysis TimePerformed AtPathologist SignatureCulture, Urine10,000 - <50,000 CFU/ml Normal urogenital flora06/30/2025 8:[address] [facility] LABSpecimen (Source)Anatomical Location / LateralityCollection Method / VolumeCollection TimeReceived TimeUrineURINE SPECIMEN / UnknownNon Blood / Dtrkdvr5806/28/2025 11:56 AM EST06/28/2025 12:10 PM EST Narrative Authorizing ProviderResult TypeResult StatusFerjen Maria MDMICROBIOLOGYFinal ResultPerforming OrganizationAddressCity/State/ZIP CodePhone Number [facility] [address] * XR ABDOMEN 2V ROUTINE SUPINE W UPRIGHT/DECUB/CTL (06/28/2025 9:11 AM EST) Anatomical RegionLateralityModalityAbdomenOtherSpecimen (Source)Anatomical Location / LateralityCollection Method / VolumeCollection TimeReceived Time 06/28/2025 9:11 AM EST Impressions 06/28/2025 10:03 AM EST IMPRESSION: 1. ??Left ureteral stent with a superior segment that is coiled. ?? Comparison with the prior study would be useful. 2. ??Right ureteral stent and left percutaneous nephrostomy tube. Child And Family Counselor: PSCB ?? Transcribe Date/Time: Jun 28 2025 ??9:54A [...] placed one month ago at [facility] due to stents not functioning properly. TECHNIQUE: 3 views of the abdomen and pelvis. RESULT: Right ureteral stent is noted. ??The left ureteral stent is noted with the superior segment that is coiled. ??A left nephrostomy tube is noted. Left hip arthroplasty. ??Postoperative changes of the chest. ??No evidence of bowel obstruction. Procedure Note Provider, [facility] - 06/28/2025 * * *Final Report* * [...] placed one month ago at [facility] due to stents not functioning properly. TECHNIQUE: [...] ureteral stent and left percutaneous nephrostomy tube. Child And Family Counselor: WALTER Transcribe Date/Time: Jun 28 2025 9:54A Dictated by : CHEVY CASTRO MD This examination was interpreted and the report reviewed and electronically signed by: CHEVY CASTRO MD on Jun 28 2025 10:01AM EST Authorizing ProviderResult TypeResult StatusRomel Maria MDRAD-PAMAFinal Result from Last 3 Months Insurance Care Teams Team MemberRelationshipSpecialtyStart DateEnd Yaniv Natarajan MD [address] [place] [address] NmztfokwyOspmuvn57/3/25
--- OUTSIDE RECORDS SUMMARY | 2025-07-02 13:07 | XMS_ITS | Clinical Summary ---
Author Organization [facility] Address [address] [place] [address] Phone Care Team Providers Care Chief Of Pediatric Urology Name Role Phone Olviia Cazares MD Primary Care Provider [phone] Allergies Active AllergyReactionsCriticalityNoted DateCommentsAce InhibitorsOtherLow 07/08/20236464YeabrahiilbbAnwdvwlDmmwdx63/26/6608RnfoicpaqpzbnwOzsjkDfd47/26/2023 Faigxlt-Cdy-Cub Reductase WgigloqpxdUdgyofpFfv55/26/2023 Medications MedicationSigDispense QuantityRefillsLast FilledStart DateEnd DateStatus allopurinol [...] mouth 2 times a day. 180 tablet 4Active aspirin 81 mg EC tablet Indications:CAD, multiple vesselTake 1 tablet (81 mg) by mouth once daily. 90 tablet 301/501/6Active ferrous sulfate 325 (65 Fe) MG EC [...] mg) by mouth once daily. 90 tablet 306/ctive Active Problems ProblemNoted DateDiagnosed DateChronic kidney disease, stage 3b08/11/2024MI 33.0-33.9,adult09/17/2023 Assessment & Plan (08/12/2024 9:45 AM EST): Reviewed the merits of healthy lifestyle choices on overall cardiovascular health. Former hdpqli5909/17/2023ruit of right carotid nsjsei5407/08/2023AD, multiple cknqiw0807/08/2023 Assessment & Plan (08/12/2024 9:41 AM EST): November 2016 CABG x 15 June 2017 cardiac cath Distal/mid RCA PCI/GURU x 2 HACKETT-LAD was patent Sequential saphenous vein graft from PDA-OM was occluded LVEF 45% October 2023 MPI no ischemia, no infarct. EF 48%. Current daily activity less than 4 METS. Mnnemzgls82/26/1434Iszwc78/26/2023HTN (hypertension)07/08/2023 Assessment & Plan (08/12/2024 9:41 AM EST): Asymptomatic hypotension noted in the office today. Zbnkhikuyyqp90/26/4854Deusnxjkkqydsn48/26/2023 Assessment & Plan (08/12/2024 9:42 AM EST): Moderate intensity statin Ischemic suvgyoyajsgxja52/26/2023 Assessment & Plan (08/12/2024 9:43 AM EST): Ischemic cardiomyopathy heart failure borderline ejection fraction 48% October 2023 MPI Currently no SGLT2 due to acute kidney injury during hospitalization 2023 Leg pain07/08/2023Mitral vfxbuqdysxbsv25/26/2023VD (peripheral vascular disease)07/08/2023 Assessment & Plan (08/12/2024 9:45 AM EST): She has extensive history of peripheral arterial disease including July 2018 open AAA repair Left subclavian GILL BOX OPERATOR and stenting Right external iliac GILL BOX OPERATOR stenting Left common iliac intervention R ICA 50-69% She has not followed up with vascular since Dr. Chanel retired. During January 2024 hospitalization for hydronephrosis she had a CT of the abdomen that was unremarkable in regards to aortic aneurysm. S/P CABG x SOB (shortness of breath) on bpludmpo62/26/2023Type 2 diabetes xtigzuxd95/26/2023 Assessment & Plan (08/12/2024 9:45 AM EST): On WILLIAMS/statin Recent hemoglobin A1c 8.2 Resolved Problems ProblemNoted DateDiagnosed DateResolved DateAbnormal EKG1/12/2023 History of ufcwefebzkr23/26/202301/History of AL (myocardial infarction) / Encounters DateTypeDepartmentCare EzzzXoowjbknlkt28/05/2025Scanned Document [facility] [address] [place] [address] Scanning, Generic Provider 04/12/2025Scanned Document [facility] [address] [place] [address] Scanning, Generic Provider 04/11/2025Scanned Document [facility] [address] [place] [address] Scanning, Generic Provider 04/09/2025Scanned Document [facility] [address] [place] [address] Scanning, Generic Provider 04/07/2025Scanned Document [facility] [address] [place] [address] Scanning, Generic Provider from Last 3 Months Immunizations ImmunizationAdministration DatesNext DueInfluenza, injectable, quadrivalent 2Pfizer Purple Cap MFST-QlU-055/07/2020,08/30/2020,08/09/2020 Pneumococcal conjugate vaccine, 13-valent (PREVNAR 13)04/13/2018,10/30/2016 Pneumococcal polysaccharide vaccine, 23-valent, age 2 years and older (PNEUMOVAX 23)10/12/2016 Family History Medical HistoryRelationNameCommentsKidney cancerBrotherHeart diseaseFather HypertensionMotherRelationNameStatusCommentsBrotherFatherMother Social History Tobacco UseTypesPacks/DayYears UsedDateSmoking Tobacco: FormerCigarettesQuit: 2000Smokeless Tobacco: NeverAlcohol UseStandard Drinks/WeekCommentsYes0 (1 standard drink = 0.6 oz pure alcohol)occasionalCommentsUnknownSex and Gender InformationValueDate RecordedSex Assigned at BirthNot on fileLegal Sex Awjouq4906/07/2022 9:40 PM ESTGender IdentityNot on fileSexual OrientationNot on file Last Filed Vital Signs Vital SignReadingTime TakenCommentsBlood Qrfcldpw309/60008/11/2024 3:39 PM EST Trrmy855608/11/2024 3:23 PM ESTTemperature--Respiratory Rate--Oxygen Saturation-- Inhaled Oxygen Concentration--Ypifbm90.8 kg (165 lb)08/11/2024 3:23 PM ESTHeight 149.9 cm (4' 11 )08/11/2024 3:23 PM ESTBody Mass Index33.33008/11/2024 3:23 PM EST Plan of Treatment DateTypeDepartmentCare Team (Latest Contact Info)Mxwfptygxlk91/12/2026 9:[address] [address] [facility] [facility] [address] [address] 08/23/2025 11:[address] [facility] [address] [facility] [address] [place] [address] Tom Cobb, [address] [facility] [address] [place] [address] Health MaintenanceDue DateLast DoneCommentsDiabetes: Celiac Disease Screening 1945Diabetes: Urine Protein Daswhqoyo1945TSH Level1945Vitamin B-12108/04/1944Hepatitis A Vaccines (1 of 2 - Risk 2-dose series)1964 DTaP/Tdap/Td Vaccines (1 - Tdap)1967Zoster Vaccines (1 of 2)1995 Hepatitis B Vaccines (1 of 3 - Risk 3-dose series)2005Bone Density Scan 2010Diabetes: Hemoglobin A1CRSV High Risk: (Elderly (60+) or Population) (1 - 1-dose 75+ series)2020Creatinine Level Lipid PanelPotassium Level06/16/2020 06/16/2019Medicare Annual Wellness Visit (AWV)/10/2021, 03/13/2020, 12/10/2016Diabetes: Retinopathy Wsymjyajo44/12/2022, 03/02/2019, 01/19/2019, Additional history existsInfluenza Vaccine (#1)/, 07/01/2019, 07/14/2018, Additional history existsCOVID-19 Vaccine ( season)/11/2021, 04/13/2021, 08/30/2020, Additional history exists Zcgnkahkgoreaz61/25/202609/Pneumococcal UbzzwfrUbsvrshwp90/04/2018, 04/13/2018, 10/30/2016, Additional history existsHIB VaccinesAged OutNo longer eligible based on patient's age to complete this topicHPV VaccinesAged OutNo longer eligible based on patient's age to complete this topicIPV VaccinesAged OutNo longer eligible based on patient's age to complete this topicMeningococcal VaccineAged OutNo longer eligible based on patient's age to complete this topic Rotavirus VaccinesAged OutNo longer eligible based on patient's age to complete this topic Procedures Procedure NamePriorityDate/TimeAssociated DiagnosisCommentsOUTSIDE LAB SCAN 04/17/2025 QRHSVAVITOIJYW39/25/2025 HEMOGLOBIN B3VCkrimzd91/04/2019 12:05 PM EST LIPID ZTOMYYssarmf51/04/2019 12:05 PM EST COMPREHENSIVE METABOLIC JETYWUwujqdx75/04/2019 12:05 PM EST from Last 3 Months [...] EST)ComponentValueRef RangeTest Method Analysis TimePerformed AtPathologist SignatureHemoglobin A1C7.5%[facility] Comment: ? Diagnosis of Diabetes-Adults Non-Diabetic: < or = 5.6% Increased risk for developing diabetes: 5.7-6.4% Diagnostic of diabetes: > or = 6.5% . ? Monitoring of Diabetes ?Age (y) ? Therapeutic Goal (%) Adults: >18 <7.0 Pediatrics: 13-18 <7.5 7-12 <8.0 ? 0- 6 ?7.5-8.5 [employer]. Diabetes Care 33(S1), Jul 2009. Estimated Average Sftwljd530MP/DLINDIA[facility] REGIONAL [facility] LABSpecimen (Source)Anatomical Location / LateralityCollection Method / VolumeCollection TimeReceived Time06/16/2019 12:05 PM EST06/16/2019 11:43 PM EST Narrative Authorizing ProviderResult TypeResult StatusKim Paul BARRY BLOOD ORDERABLESFinal ResultPerforming OrganizationAddressCity/State/ZIP CodePhone Number [facility] * (ABNORMAL) Lipid Panel (06/16/2019 12:05 PM EST)ComponentValueRef RangeTest MethodAnalysis TimePerformed AtPathologist ZcmuwcukvMwscourssjz0453 - 199 mg/dLOR[facility] LABComment: . ?AGE ?DESIRABLE ?? BORDERLINE HIGH [...] be performed immediately prior to Metamizole dosing. HDL39.0(A)mg/dLORLANDO HEALTH ST. [facility] LABComment: . ?AGE ?VERY LOW ?? LOW ? NORMAL ?HIGH ?? 0-19 Y < 35 < 40 40-45 ---- 20-24 Y ---- < 40 >45 ---- >24 Y ---- < 40 40-60 >60 . Cholesterol/HDL Ratio4.7[facility] LABComment: REF VALUES DESIRABLE < 3.4 HIGH RISK > 5.0 XIW937 - 99 mg/dLORLANDO HEALTH ST[facility] LABComment: . ? NEAR ?BORD ?AGE ?DESIRABLE ??OPTIMAL ?HIGH ? HIGH ? VERY HIGH 0-19 Y 0 - 109 --- 110-129 >/= 130 ---- 20-24 Y 0 - 119 --- 120-159 >/= 160 ---- >24 Y 0 - 99 100-129 130-159 160-189 >/=190 . VLDL51(H)0 - 40 mg/dLOR[facility]O [facility] KYKHyakhjamkobyv046(H)0 - 149 mg/dL [facility] LABComment: . ?AGE ?DESIRABLE ?? BORDERLINE HIGH [...] immediately prior to Metamizole dosing. Non HDL Dgahmjgfhss019xh/dLORLANDO HEALTH ST[facility] LABComment: ?AGE ?DESIRABLE ?? BORDERLINE HIGH ?? [...] BARRY BLOOD ORDERABLESFinal ResultPerforming OrganizationAddressCity/State/ZIP CodePhone Number [facility] * (ABNORMAL) Comprehensive Metabolic Panel (06/16/2019 12:05 PM EST)Component ValueRef RangeTest MethodAnalysis TimePerformed AtPathologist SignatureGlucose 115(H)74 - 99 mg/dLOR[facility] TOCOjrrev894383 - 145 mmol/[facility] LABPotassium5.4(H)3.5 - 5.3 mmol/[facility] Enbjfexr69224 - 107 mmol/[facility] CWMKxnhajlavps0619 - 32 mmol/L [facility] LABAnion Hhl2447 - 20 mmol/[facility] Urea Rucicrwb14(H)6 - 23 mg/dLORLANDO [facility] LABCreatinine1.32(H)0.50 - 1.05 mg/dLORLANDO [facility] LABGLOMERULAR FILTRATION RATE-NON CWFLHIOQ82(A)>60 mL/min/1.43x2KYRWIAORLANDO HEALTH ST. CLOU[facility] LABGLOMERULAR FILTRATION RATE- VDWYZUIZ42(A)>60 mL/min/1.74m4BGROLDORLANDO [facility]ALTH ST[facility] LABComment: CALCULATIONS OF ESTIMATED GFR ARE PERFORMED USING THE MDRD STUDY EQUATION FOR THE IDMS-TRACEABLE CREATININE METHODS. CLIN CHEM 2007;53:766-72 Calcium9.88.6 - 10.3 mg/dLORLANDO [facility]ALTH ST[facility] LABAlbumin4.13.4 - 5.0 g/dL [facility] LABAlkaline Awnnmoreogo1370 - 136 U/[facility] LABTotal Protein7.56.4 - 8.2 g/dLORLANDO HEALTH ST[facility] XMQUHK335 - 39 U/[facility] LABTotal Bilirubin0.50.0 - 1.2 mg/dLORLANDO [facility]ALTH [facility] LABALT (SGPT)127 - 45 U/[facility] LABComment: Patients treated with Sulfasalazine may generate falsely decreased results for ALT. Specimen (Source)Anatomical Location / LateralityCollection Method / Volume Collection TimeReceived Time06/16/2019 12:05 PM EST06/16/2019 5:59 PM EST Narrative Authorizing ProviderResult TypeResult StatusKim Paul Lee MDLAB BLOOD ORDERABLESFinal ResultPerforming OrganizationAddressCity/State/ZIP CodePhone Number [facility] from Last 3 Months or Most Recently Relevant to Health Maintenance Insurance * Guarantor: ToiLexiDebbie TypeRelation to PatientDate of BirthPhone Billing AddressDec[facility] Health Systems/[address] [place] [address] Care Teams Team MemberRelationshipSpecialtyStart DateEnd Date Olivia Cazares MD [facility]
--- OUTSIDE RECORDS SUMMARY | 2025-07-02 13:07 | XMS_ITS | Encounter Summary ---
Author Organization [facility] Address [address] [place] [address] Care Team Providers Care Higher Education Administrator Name Role Phone Yaniv Natarajan MD Unavailable [phone] Source Comments In the event this information is protected by the Federal Confidentiality of Alcohol and Drug AbusePatient Records regulations: The Federal rules restrict any use of the information to criminally investigate or prosecute any alcohol or drug abuse patient.[facility] Reason for Visit * ReasonCommentsScheduling Encounter Details DateTypeDepartmentCare Team (Latest Contact Info)Ypoffejaunq04/17/2025Telephone Urology [address] [address] Romel Maria MD [address] [facility] [place] [address] Scheduling Social History Tobacco UseTypesPacks/DayYears UsedDateSmoking Tobacco: Never Assessed CommentsUnknownSex and Gender InformationValueDate RecordedSex Assigned at Not on fileLegal HvhWodeop49/03/2025 12:53 PM ESTGender IdentityNot on file Sexual OrientationNot on filedocumented as of this encounter Miscellaneous Notes * Telephone Encounter - Valarie Hawkins - 06/29/2025 3:17 PM EST LM for pt to call back and schedule surgery [phone] documented in this encounter Plan of Treatment DateTypeDepartmentCare Team (Latest Contact Info)Ljgzqaaleid88/28/2026Hospital Encounter [facility] Operating Room [address] [place] [address] Romel Maria MD [address] [place] [address] Hydronephrosis, unspecified hydronephrosis type [N13.30], Presence of other specified devices [Z97.8], Recurrent urinary tract infection [N39.0]08/25/2025 9:40 AM ESTDisEastern [facility] [address] [place] [address] Romel Maria MD [address] [place] [address] post opNamePriorityAssociated DiagnosesDate/TimeCYSTOURETHROSCOPY W/ URETEROSCOPY AND/OR PYELOSCOPY W/ LITHOTRIPSY INCLUDE INSERTION OF INDWELLING U RETERAL STENT Hydronephrosis, unspecified hydronephrosis type Presence of other specified devices Recurrent urinary tract infection documented as of this encounter Visit Diagnoses Not on filedocumented in this encounter Care Teams Team MemberRelationshipSpecialtyStart DateEnd Date Yaniv Natarajan MD [address] [place] [place] [address] RnybdrnitIetljpa82/3/25documented as of this encounter
--- OUTSIDE RECORDS SUMMARY | 2025-07-02 13:07 | XMS_ITS | Clinical Summary ---
Author Organization [facility] Address [address] [facility] [place] [address] Care Team Providers Care Court Clerk Name Role Phone Unavailable Primary Care Provider Unavailabl e Source Comments The following information is NOT included in Care Everywhere downloads:Psychiatric notes, ECG results, Cardiac Rehab notes, Pulmonary Function notes, data from SmartForms (includes but not limited toPregnancy data,audiograms, eye exams, pre-surgical evaluation notes, well-child exam data).[facility] Social History Tobacco UseTypesPacks/DayYears UsedDateSmoking Tobacco: Never Assessed CommentsUnknownSex and Gender InformationValueDate RecordedSex Assigned at Not on fileLegal UfaFzajja13/26/2025 2:36 PM EDTGender IdentityNot on fileSexual OrientationNot on file Plan of Treatment Health MaintenanceDue DateLast DoneCommentsTdap Gankfwi7106/04/1963Hepatitis A (HAV) Vaccine (optional start 19+ years)1964Tetanus (Td or Tdap) Booster 1964Pneumococcal Vaccine(s) (50+ yrs) (1 of 1 - PCV)1995Shingles (RZV) Vaccine (1 of 2)1995Hepatitis B (HBV) Vaccine (optional start 60+ years)2005Bone Wupdvlyaqzii98/22/2010RSV vaccine (adult) (1 - 1-dose 75+ series)2020COVID-19 Vaccine (1 - 2024- season)2025Influenza Vaccine (#1)2025Welcome to Medicare Visit (G0402)05/08/2025Pap Smear Discontinued Insurance
--- OUTSIDE RECORDS SUMMARY | 2025-07-02 13:07 | XMS_ITS | Patient Health Record ---
Author Organization [facility] [place] Address [address] [place] [address] Care Team Providers Care Freelance Court Stenographer Name Role Phone Olivia Cazares MD Primary Care Provider Unavailab Maame Infante Unavailable [phone] Annie Gasca Unavailable [phone] Allergies No Known Allergies Reason For Referral [...] Status Risk Notes Problem Peripheral vascular disease (869051813) Peripheral vascular disease, unspecified (I73.9) ActiveconfirmedProblemType 2 diabetes mellitus with other specified complication (E11.69)ActiveconfirmedProblemMitral valve disorder (74845316)Moderate mitral regurgitation (I34.0)ActiveconfirmedProblemCoronary artery disease (76417060)CAD (coronary artery disease) (I25.10)ActiveconfirmedProblemHypertension (59352098) HTN (hypertension) (I10)ActiveconfirmedProblemLeft ventricular hypertrophy (88832475)Left ventricular hypertrophy (I51.7)ActiveconfirmedProblemGout (54532826)Gout (M10.9)ActiveconfirmedProblemDiabetes mellitus type 2 (disorder) (58563155)DM2 (diabetes mellitus, type 2) (E11.9)ActiveconfirmedProblemTricuspid valve disorder (40739353)Moderate tricuspid regurgitation (I07.1)Activeconfirmed Vital Signs Heart Rate 75 /min 08/02/2024 Gxotocsefwd91.1 degrees Ejgvpapeln80/20/8893Obsckcff61 %08/02/20249112Cwihfw61 in 08/02/20244312Cvrqtg855 lbs08/02/2024BMI33.32 kg/m208/02/2024 Encounters Encounter Location Date Provider Diagnosis [facility] (PODIATRY) [address] [place] [address] [place] [address] 08/02/2024 Annie Gasca Type 2 diabetes mellitus with other specified complication E11.69 ; Pain in left toe(s) M79.675 and Peripheral vascular disease, unspecified I73.[address] [address] 05/12/2025 Maame Oseguera Assessments Encounter Date Diagnosis [...] End Date [place]IC[place] [address] [place] [address] [id number] Neha Cm - patient is the insured[facility] [address] [place] [id number] Neha Lowery - patient is the insured Medical (General) History Medical History History ICD Code arthritis diabetesheart diseaseperipheral vascular diseaseSurgical History Surgery Date(Month/Year) heart bypass
--- OUTSIDE RECORDS SUMMARY | 2025-07-02 13:07 | XMS_ITS | Encounter Summary ---
Author Organization [facility] Address [address] [place] [address] Care Team Providers Care Finance Administrator Name Role Phone Yaniv Natarajan MD Unavailable [phone] Source Comments In the event this information is protected by the Federal Confidentiality of Alcohol and Drug AbusePatient Records regulations: The Federal rules restrict any use of the information to criminally investigate or prosecute any alcohol or drug abuse patient.[facility] Reason for Visit * ReasonCommentsRadiology XR Encounter Details DateTypeDepartmentCare Team (Latest Contact Info)Kkkrjbaykog12/16/2025Radiology Radiology [address] [place], [place] [phone] Chel Altamirano RT(R) Radiology XR Social History Tobacco UseTypesPacks/DayYears UsedDateSmoking Tobacco: Never Assessed CommentsUnknownSex and Gender InformationValueDate RecordedSex Assigned at Not on fileLegal MtvUgsvgj06/03/2025 12:53 PM ESTGender IdentityNot on file Sexual OrientationNot on filedocumented as of this encounter Progress Notes * Chel Altamirano RT(R) - 06/28/2025 9:10 AM EST Radiology Service Progress Note PATIENT NAME: Lexi Cm DATE OF SERVICE: June 28, 2025 TIME: 9:10 AM PATIENT IDENTITY VERIFICATION COMPLETED USING TWO (2) IDENTIFIERS: Name and Date of confirmedby patient verbally. FALL SCREENING: Has the patient had 2 falls in the last year or 1 fall with injury or currently using an Ambulatory Assistive Device (Walker, Cane, Wheelchair, Crutches, etc.)? No PATIENT GENDER DATA: Assigned female at . status: : No status:NO. PATIENT RELEVANT IMPLANT DATA REVIEWED: Yes PATIENT PRESENTS WITH AN IMPLANTABLE OR ATTACHED CASING RUNNING MACHINE TENDER: No RADIOLOGY DEPARTMENT: General X-ray: Exam(s) Completed: Abdomen X-Ray: Abdomen with Upright PERIPHERAL IV DATA: Not applicable SIGNED BY: RT Cathy(R) June 28, 2025 9:10 AM documented in this encounter Plan of Treatment DateTypeDepartmentCare Team (Latest Contact Info)Dkyqxqzygvr11/28/2026Hospital Encounter [facility] Operating Room [address] [place] [address] Romel Maria MD [address] [place] [address] Hydronephrosis, unspecified hydronephrosis type [N13.30], Presence of other specified devices [Z97.8], Recurrent urinary tract infection [N39.0]08/25/2025 9:40 AM ESTDisN[facility] Health [facility] [address] [place] [address] Romel Maria MD [address] [place] [address] post opNamePriorityAssociated DiagnosesDate/TimeCYSTOURETHROSCOPY W/ URETEROSCOPY AND/OR PYELOSCOPY W/ LITHOTRIPSY INCLUDE INSERTION OF INDWELLING U RETERAL STENT Hydronephrosis, unspecified hydronephrosis type Presence of other specified devices Recurrent urinary tract infection documented as of this encounter Visit Diagnoses Not on filedocumented in this encounter Care Teams Team MemberRelationshipSpecialtyStart DateEnd Date Yaniv Natarajan MD [address] [place] [address] FxurgghxgLtiknlt77/3/25documented as of this encounter
[2025-07-02 13:20] LABS: SARS-CoV-2 Ag NEGATIVE (NEGATIVE)
[2025-07-02 13:48] LABS: Hematocrit 36.0 % (36.0-48.0); Hemoglobin 10.8 g/dL (12.0-16.0); Immature Granulocytes Abs Auto 0.05 10^3/uL (0.00-0.03); Immature Granulocytes Pct Auto 0.5 % (0.0-0.5); Lymphocytes Absolute Auto 1.4 10^3/uL (1.2-3.8); Mean Corpuscular HGB Conc 30.0 g/dL (29.9-35.2); Mean Corpuscular Hemoglobin 29.4 pg (26.7-34.0); Mean Corpuscular Volume 98.1 fL (81.0-99.0); Platelet Count 276 10^3/uL (150-450); Red Blood Count 3.67 10^6/uL (4.20-5.40); White Blood Count 10.8 10^3/uL (4.0-11.0)
[2025-07-02 14:23] LABS: Anion Gap 9.5; Blood Urea Nitrogen 27.0 mg/dL (7.0-18.0); Calcium 9.3 mg/dL (8.5-10.1); Carbon Dioxide 33.9 mmol/L (21.0-32.0); Chloride 97 mmol/L (98-107); Estimated GFR (African America 43 (>=60 mL/min/1.73m^2); Estimated GFR (Non-African Ame 36 (>=60 mL/min/1.73m^2); Glucose 153 mg/dL (74-106); Potassium 4.4 mmol/L (3.5-5.1); Sodium 136 mmol/L (136-145)
[2025-07-02] MEDS: FUROSEMIDE 40 MG/4 ML VIAL IVP (14:52)
--- NOTE | 2025-07-02 16:30 | PM.HP ---
HPI H&P: HPI History of Present Illness Chief complaint: SOB CHF HYPOXEMIA Narrative: This is an 80-year-old woman who was sent from her group home facility to the ER at [facility] today due to dyspnea. In the ER a chest x-ray shows abundant pulmonary fluid/pulmonary edema in the lower half of her lungs and she also has leg edema. Her blood pressures are found to be elevated at 152/83 and 180/90. Her NT pro B- type atretic peptide is extremely high at 9230. Her creatinine is actually improved from past levels. About 6 weeks ago on May 21, after she got out of [facility] where a left sided percutaneous nephrostomy tube was placed, her creatinine was 1.87. Today it is 1.41. And her BUN has improved, going from 51 down to 27 today. In ER room #4 she is accompanied by her . Her says that while she has been at the group home facility she has been getting a lot of physical therapy and getting a lot stronger. She does continue to walk with a walker. The entire time that she has been at the group home [facility] she has been on supplemental oxygen. At one point they turned the oxygen down to 1 L by nasal cannula but then more recently they have turned it up to 2 L by nasal cannula. When I pointed out that the patient has pitting edema going chcf up her legs the patient did not seem to know that this was present. The patient does report that she has consumed more salty food recently. In the ER today she was 80% on room air. The ER did put her on 2.5 L. When I came into the room she was at 99% on 2.25 L and I turned her down to 1.75 L of oxygen by nasal cannula, and she maintained good oxygen saturation of 97%. The patient was hospitalized here at [facility] for about a week back in middle of April until she had to get sent to [facility] on May 08. Her explains that at [facility] they placed a left-sided percutaneous nephrostomy tube. At that time the patient had a complicated bacterial urinary tract infection that was not getting better. She also had renal insufficiency and congestive heart failure symptoms that were not getting better. The explains that the patient has [address] at this time. One is in the right-sided collecting system. One stent is coiled up in the left sided ureter collecting system so it needs to be removed and there is another stent that is functioning on the left side. The patient has plans to get all of the stents removed and exchanged in the end of July by a [facility] Urologist, and then hopefully the left sided nephrostomy tube will be removed. The patient explains that when she does get a urinary tract infection it makes her feel very weak and she cannot do any physical activity at all. So far since getting out of the [facility] she has not had any urinary tract infection symptoms. The ER gave her 40 mg Lasix IV. The patient's reports that her left-sided nephrostomy bag had to be emptied 1 time already. Back on May 02 when she was hospitalized here with complicated urinary tract infection an echocardiogram showed preserved left ventricular ejection fraction of 55%. The cardiology read at that time did describe grade 2 diastolic dysfunction. There was moderate regurgitation of the tricuspid valve and mild to moderate mitral regurgitation, there was no aortic regurgitation and mild pulmonic valve regurgitation. Cardiology consultation at that time recommended that the patient should be on an SGLT2 inhibitor. Opioid HPI Opioid Management Most Recent Pain and Opioid Data: Last Pain Scale 0 05/06/25, 17:52 Last Pain Intensity 0 05/06/25, 13:36 Last ORT Total Score 0 05/02/25, 13:44 Last ORT Risk Category Low Risk 05/02/25, 13:44 Review of Systems ROS Narrative 10 point review of systems is reviewed and is negative except as mention above in history of present illness. [facility] Medical History (Updated 07/02/25 @ 16:41 by ESTEFANIA SINGLETON) Chronic hypoxic respiratory failure ?J96.11 - Chronic respiratory failure with hypoxia (ICD-10) Gait instability ?R26.81 - Unsteadiness on feet (ICD-10) Bilateral hydronephrosis ?N13.30 - Unspecified hydronephrosis (ICD-10) (HFpEF) heart failure with preserved ejection fraction ?I50.30 - Unspecified diastolic (congestive) heart failure (ICD-10) Hypertensive heart and chronic kidney disease with heart failure and stage 1 through stage 4 chronic kidney disease, or unspecified chronic kidney disease ?I13.0 - Hypertensive heart and chronic kidney disease with heart failure and stage 1 through stage 4 chronic kidney disease, or unspecified chronic kidney disease (ICD-10) Gout ?M10.9 - Gout, unspecified (ICD-10) Peripheral arterial disease ?I73.9 - Peripheral vascular disease, unspecified (ICD-10) Stage 3b chronic kidney disease (CKD) ?N18.32 - Chronic kidney disease, stage 3b (ICD-10) HTN (hypertension) ?I10 - Essential (primary) hypertension (ICD-10) Surgical History S/P hip replacement ?Z96.649 - Presence of unspecified artificial hip joint (ICD-10) History of aortic bifurcation bypass graft ?Z95.828 - Presence of other vascular implants and grafts (ICD-10) S/P triple vessel bypass ?Z95.1 - Presence of aortocoronary bypass graft (ICD-10) History of 3 sections ?Z98.891 - History of uterine scar from previous surgery (ICD-10) Family History Brother Family history of cancer Mother Family history of hypertension Father Family history of myocardial infarction Other Family history of CHF (congestive heart failure) Family history of diabetes mellitus Social History Within the past year, how often did you have a drink containing alcohol: never Score interpretation: A score less than 3 is consistent with normal alcohol consumption. Smoking status: Former smoker Non-prescribed substance use: denies use Previous occupational history: disabled Highest level of school completed/degree received: high school graduate Are you now , , , , never or living with a partner: In a typical week, how many times do you talk on the telephone with family, friends, or neighbors: 3 or more times per week How often do you get together with friends or relatives: 3 or more times per week How often do you attend hoahaoism or zoroastrian services: 4 or more times per year Little interest or pleasure in doing things: not at all Feeling down, depressed, or hopeless: not at all Feel stressed/tense/nervous/anxious/difficulty sleeping: not at all Do you think of yourself as: straight/heterosexual Gender Identity: female Meds Home Medications and Allergies Home Medications ?Medication ?Instructions ?Recorded ?Confirmed ?Type allopurinol 300 mg tablet 300 mg PO DAILY 08/30/23 07/02/25 History cholecalciferol (vitamin D3) 125 125 mcg PO .every other day 08/30/23 07/02/25 History mcg (5,000 unit) tablet clopidogrel 75 mg tablet 75 mg PO DAILY 08/30/23 07/02/25 History carvedilol 3.125 mg tablet 3.125 mg PO BID #0 tabs 04/15/25 07/02/25 Rx glucagon 1 mg solution for 1 mg IV Q15M PRN Hypoglycemia #0 ea 04/15/25 05/02/25 Rx injection (Glucagon Emergency Kit) acetaminophen 500 mg tablet 1,000 mg PO Q8H PRN fever or pain 05/02/25 07/02/25 History gabapentin 100 mg capsule 300 mg PO Q12H 05/02/25 07/02/25 History ascorbic acid (vitamin C) 500 mg mg PO 07/02/25 History capsule bumetanide 2 mg tablet 2 mg PO DAILY 07/02/25 07/02/25 History docusate sodium 100 mg capsule 100 mg PO BID 07/02/25 07/02/25 History (Colace) insulin glargine 100 unit/mL (3 20 unit subcut QPM 07/02/25 07/02/25 History mL) subcutaneous pen (Lantus Solostar U-100 Insulin) insulin lispro 100 unit/mL 1 sliding scale dose subcut 07/02/25 07/02/25 History subcutaneous pen (Humalog KwikPen USEASDIRECTD (U-100) Insulin) ondansetron HCl 4 mg tablet 4 mg PO Q8H 07/02/25 07/02/25 History polyethylene glycol 3350 17 17 g PO BID 07/02/25 07/02/25 History gram/dose oral powder potassium chloride 10 mEq 10 meq PO DAILY 07/02/25 07/02/25 History capsule,extended release Allergies Allergy/AdvReac Type Severity Reaction Status Date / Time No Known Drug Allergies Allergy Verified 04/07/25 13:32 Exam Narrative Exam Narrative: Seen in ER room #4 she is sitting upright in bed. She is awake. She is alert. She is conversant. Pulmonary: Diminished breath sounds in the bottom half of the lungs bilaterally with a lot of diminished breath sounds a lot of crackles in the bases bilaterally. Lower extremities: 2+ pitting edema going two thirds of the way up her shins bilaterally. Left percutaneous nephrostomy tube site is good. It is draining a good amount of clear yellow urine with a little bit of fibrinous stranding. No purulence. No blood. Cardiac: Heart sounds are somewhat distant. I do not hear any murmurs to auscultation. Normal sinus rhythm on the monitor. Neurologic: Oriented x 3. Fully with normal cognition. Psychiatric. Mood and affect are normal. GI: Abdomen soft, normal bowel sounds to auscultation. Skin: Warm and dry and well-perfused all over. Eyes: EOMI. Conjunctiva sclera clear. Mouth: Oropharynx is clear. Mallampati grade 4. Mucous membranes are moist. Constitutional Vital Signs, click to edit/add: Last Vital Signs Temp 98.0 F 07/02/25 16:22 Pulse 59 L 07/02/25 14:20 Resp 18 07/02/25 14:20 BP 152/83 H 07/02/25 16:16 Pulse Ox 99 07/02/25 16:20 O2 Del Method Room Air 07/02/25 12:58 O2 Flow Rate 3 07/02/25 12:48 Results Labs Labs: Short CBC 07/02/25 Range/Units 13:36 WBC 10.8 (4.0-11.0) 10^3/uL Hgb 10.8 L (12.0-16.0) g/dL Hct 36.0 (36.0-48.0) % Plt Count 276 (150-450) 10^3/uL BMP 07/02/25 13:36 Sodium 136 Potassium 4.4 Chloride 97 L Carbon Dioxide 33.9 H BUN 27.0 H Creatinine 1.41 H Glucose 153 H Calcium 9.3 Assessment and Plan Assessment and Plan (1) Pulmonary edema: Qualifiers: Chronicity: acute Qualified Code(s): J81.0 - Acute pulmonary edema (2) Acute on chronic hypoxic respiratory failure: (3) Volume overload: Qualifiers: Hypervolemia type: other Qualified Code(s): E87.79 - Other fluid overload (4) Type 2 diabetes mellitus with diabetic neuropathy, unspecified: Qualifiers: Diabetes mellitus snf insulin use: unspecified director long term care insulin use status Qualified Code(s): E11.40 - Type 2 diabetes mellitus with diabetic neuropathy, unspecified (5) CKD (chronic kidney disease): Qualifiers: Chronic kidney disease stage: stage 4 (GFR 15-29) Qualified Code(s): N18.4 - Chronic kidney disease, stage 4 (severe) Plan Assessment:: Acute pulmonary interstitial edema, causing acute on chronic hypoxic respiratory failure, due to: Volume overload. Longstanding problems with heart failure with preserved ejection fraction. Longstanding problems with chronic kidney disease ranging between stage IIIa and stage IV. The chronic kidney disease is likely partly due to diabetes but also partly due to ureter problems and hydronephrosis. She does have her right kidney drained by a ureteral stent the patient's tells me and her left kidney is drained by percutaneous nephrostomy tube. Longstanding history of diabetes mellitus type 2 managed with insulin. History of gout. Plan: Hospital admission with inpatient status. Continue IV diuresis with Lasix 40 mg IV twice daily. Pulmonary decongestion by applying 1 inch of nitroglycerin paste now, which can be removed in 6 hours, and then can tomorrow morning with her next dose of Lasix. Adding spironolactone at 25 mg daily. Starting SGLT2 with Farxiga 10 mg p.o. daily. Close monitoring of blood pressure. Continuous telemetry monitoring. Check daily weight. The best (lowest) weight that I can find on the patient was when she was hospitalized in the middle of April at 76.4 kg. Try to wean down supplemental oxygen as tolerated. DVT prophylaxis with heparin 5000 units subcutaneously every 12 hours. Fingerstick blood sugars/Accu-Cheks AC and at bedtime with sliding scale insulin. Check hemoglobin A1c in the morning. Check magnesium and uric acid levels with morning labs that may give a better idea of her long-term renal function.
[2025-07-02] MEDS: HEPARIN SODIUM (PORCINE) 5,000 UNIT/ML VIAL 5000 UNIT SUBQ (17:44)
[2025-07-02] MEDS: SPIRONOLACTONE 25 MG TABLET PO (17:44)
[2025-07-02] MEDS: GABAPENTIN 100 MG CAPSULE 300 MG PO (17:44)
[2025-07-02] MEDS: DAPAGLIFLOZIN 5 MG TABLET 10 MG PO (17:46)
[2025-07-02] MEDS: NITROGLYCERIN 2% 1 GRAM PACKET 0.5 GM TD (17:47)
[2025-07-02] MEDS: INSULIN GLARGINE 300 UNIT/3 ML INSULN.PEN 20 UNIT SQ (21:02)
[2025-07-02] MEDS: CARVEDILOL 3.125 MG TABLET PO (21:03)
[2025-07-02] MEDS: INSULIN ASPART 300 UNIT/3 ML PEN SUBQ (21:03)
[2025-07-02] MEDS: DOCUSATE SODIUM 100 MG CAPSULE PO (21:04)
[2025-07-03] VITALS (17 sets, daily range): BP systolic 129–166; BP diastolic 56–85; PULSE 51–77; TEMP 36.3–37.5; O2SAT 88–97
[2025-07-03 06:42] LABS: Anion Gap 4.2; Blood Urea Nitrogen 28.0 mg/dL (7.0-18.0); Calcium 9.3 mg/dL (8.5-10.1); Carbon Dioxide 35.7 mmol/L (21.0-32.0); Chloride 98 mmol/L (98-107); Estimated GFR (African America 34 (>=60 mL/min/1.73m^2); Estimated GFR (Non-African Ame 28 (>=60 mL/min/1.73m^2); Glucose 123 mg/dL (74-106); Magnesium 1.9 mg/dL (1.8-2.4); Potassium 3.9 mmol/L (3.5-5.1); Sodium 134 mmol/L (136-145); Uric Acid 4.0 mg/dL (2.6-6.0)
--- NOTE | 2025-07-03 08:00 | ECG_ITS ---
[facility] Test Date: 2025-07-03 Pat Name: ESTHER TATUM Department: Room: 2181 Gender: Female [employer]: : 1945 Requested By: [id number] Order Number: [id number] Reading MD: HI PEREZ M.D. Measurements Intervals Reading Rate: 69 P: -4 [place]: 214 QRS: -33 QRSD: 130 T: 165 QT: 456 QTc: 492 Interpretive Statements SINUS RHYTHM WITH FIRST DEGREE AV BLOCK LEFT VENTRICULAR HYPERTROPHY AND ST-T CHANGE [VOLTAGE CRITERIA PLUS ST/T ABNORMALITY] INFERIOR MYOCARDIAL INFARCTION [40+ ms Q WAVE AND/OR ST/T ABNORMALITY IN II/aVF], OF INDETERMINATE AGE ANTEROLATERAL MYOCARDIAL INFARCTION [40+ ms Q WAVE IN I/aVL/V3-V6], OF INDETERMINATE AGE Compared to ECG 07/02/2025 12:50:53 First degree AV block now present Left ventricular hypertrophy now present ST (T wave) deviation still present Myocardial infarct finding still present Electronically Signed On 07-03-2025 7:24:33 EST by HI PEREZ M.D.
[2025-07-03] MEDS: CLOPIDOGREL BISULFATE 75 MG TABLET PO (08:48)
[2025-07-03] MEDS: SPIRONOLACTONE 25 MG TABLET PO (08:48)
[2025-07-03] MEDS: DOCUSATE SODIUM 100 MG CAPSULE PO ×2 (08:48→21:58)
[2025-07-03] MEDS: MULTIVITAMIN TABLET 1 TAB PO (08:48)
[2025-07-03] MEDS: DAPAGLIFLOZIN 5 MG TABLET 10 MG PO (08:49)
[2025-07-03] MEDS: CARVEDILOL 3.125 MG TABLET PO ×2 (08:49→21:58)
[2025-07-03] MEDS: ALLOPURINOL 300 MG TABLET PO (08:49)
[2025-07-03] MEDS: POTASSIUM CHLORIDE 10 MEQ ER TABLET PO (08:50)
[2025-07-03] MEDS: FUROSEMIDE 40 MG/4 ML VIAL IVP ×2 (08:50→21:57)
[2025-07-03] MEDS: GABAPENTIN 100 MG CAPSULE 300 MG PO ×2 (09:01→21:58)
[2025-07-03] MEDS: HEPARIN SODIUM (PORCINE) 5,000 UNIT/ML VIAL 5000 UNIT SUBQ ×2 (09:01→21:57)
[2025-07-03] MEDS: ASCORBIC ACID 500 MG TABLET PO (10:32)
[2025-07-03] MEDS: ASPIRIN 81 MG TABLET.DR PO (10:32)
[2025-07-03] MEDS: ATORVASTATIN CALCIUM 20 MG TABLET PO (10:32)
[2025-07-03] MEDS: METOPROLOL SUCCINATE 25 MG TAB.ER.24H 12.5 MG PO (11:47)
[2025-07-03] MEDS: INSULIN ASPART 300 UNIT/3 ML PEN SUBQ ×3 (11:49→21:57)
--- NOTE | 2025-07-03 12:03 | P.IMPN_ITS ---
Progress Note: A&P Assessment and Plan (1) Pulmonary edema: Qualifiers: Chronicity: acute Qualified Code(s): J81.0 - Acute pulmonary edema (2) Acute on chronic hypoxic respiratory failure: (3) Volume overload: Qualifiers: Hypervolemia type: other Qualified Code(s): E87.79 - Other fluid overload (4) Type 2 diabetes mellitus with diabetic neuropathy, unspecified: Qualifiers: Diabetes mellitus senior care insulin use: unspecified senior care insulin use status Qualified Code(s): E11.40 - Type 2 diabetes mellitus with diabetic neuropathy, unspecified (5) CKD (chronic kidney disease): Qualifiers: Chronic kidney disease stage: stage 4 (GFR 15-29) Qualified Code(s): N18.4 - Chronic kidney disease, stage 4 (severe) Plan Assessment:: Acute pulmonary interstitial edema, causing acute on chronic hypoxic respiratory failure, due to: Volume overload. Longstanding problems with heart failure with preserved ejection fraction. Longstanding problems with chronic kidney disease ranging between stage IIIa and stage IV. The chronic kidney disease is likely partly due to diabetes but also partly due to ureter problems and hydronephrosis. She does have her right kidney drained by a ureteral stent the patient's tells me and her left kidney is drained by percutaneous nephrostomy tube. Longstanding history of diabetes mellitus type 2 managed with insulin. History of gout. Plans for a [facility] urologist to remove and replace her ureteral stents and potenti ally end of the need for her left-sided nephrostomy tube with a procedure scheduled for the end of July. Plan: Continue IV diuresis with Lasix 40 mg IV twice daily. Continue pulmonary decongestion by applying 1 inch of nitroglycerin paste every morning, which is be removed after 6 hours. Added higher dose spironolactone at 25 mg daily. Started SGLT2 with Farxiga 10 mg p.o. daily. Close monitoring of blood pressure. Continuous telemetry monitoring. Check daily weight. The best (lowest) weight that I can find on the patient was when she was hospitalized in the middle of April at 76.4 kg. Try to wean down supplemental oxygen as tolerated. DVT prophylaxis with heparin 5000 units subcutaneously every 12 hours. Fingerstick blood sugars/Accu-Cheks AC and at bedtime with sliding scale insu little. Internal Medicine - PN: Subj Subjective Interval history: The patient reports that overnight she feels much less shortness of breath. She also reports that she is making plenty of urine and she needs nursing staff to help her change her depends. She denies any red flag symptoms: No fevers chills. No cough. No chest pain. No abdominal pain. Her blood pressures remain elevated at 166/81 and 157/85. Her creatinine did rise from 1.41 yesterday up to 1.74 today. Her weight was 75.1 kg yesterday and is 73.6 kg today. The patient reports that she has been on oxygen for the last few months. Before she had hip replacement several months ago at [facility] with Dr. Lozano and then went to the rehab unit she did not need to be on oxygen. So I think that all the reason that she has been on oxygen is due to pulmonary interstitial edema and likely some pleural effusions from her volume overload. I explained to the patient that the Farxiga is an SGLT2 medication which is helpful for patients with congestive heart failure. Hopefully with this you will need less insulin and have better control of her diabetes. Her A1c today is 7.5. Back in January it was 7.2. Back in September it was 7.7. Exam Narrative Exam Narrative: General: Awake. Alert. Oriented x 3. Manipulating her phone as she gets messages and phone calls. Cardiac: Normal sinus rhythm on the monitor. No arrhythmias seen on review of the telemetry readings overnight. To auscultation heart sounds are clear. There is a 2+ murmur. No rubs or gallops. GI: Abdomen soft, nontender to palpation. Lower extremities: Still with 2+ pitting edema going most of the way from her ankles up to her knees bilaterally. I do think this is a tiny bit better than last night when I met her in the ER. Pulmonary: Still with tremendous decreased breath sounds and crackles starting 40% of the way down her lungs and worsening in the bases bilaterally. I also think this is a tiny bit better than last night when I met her in the ER. Constitutional Vital Signs, click to edit/add: Last Vital Signs Temp 97.5 F L 07/03/25 11:35 Pulse 76 07/03/25 11:35 Resp 18 07/03/25 11:35 BP 157/85 H 07/03/25 11:35 Pulse Ox 88 L 07/03/25 11:35 O2 Del Method Nasal Cannula 07/03/25 11:35 O2 Flow Rate 2 07/02/25 19:50 Internal Medicine - PN: Obj Da Labs Labs: Laboratory Results - last 24 hr 07/02/25 07/02/25 07/02/25 12:50 13:36 20:51 WBC 10.8 RBC 3.67 L Hgb 10.8 L Hct 36.0 MCV 98.1 MCH 29.4 MCHC 30.0 RDW 16.5 H Plt Count 276 MPV 10.4 Neut % (Auto) 77.7 H Lymph % (Auto) 13.2 L [place] % (Auto) 6.4 Eos % (Auto) 1.9 Baso % (Auto) 0.3 Neut # (Auto) 8.4 H Lymph # (Auto) 1.4 [place] # (Auto) 0.7 Eos # (Auto) 0.2 Baso # (Auto) 0.0 Abs Immat Gran (auto) 0.05 H Imm/Tot Granulo (auto) 0.5 Sodium 136 Potassium 4.4 Chloride 97 L Carbon Dioxide 33.9 H Anion Gap 9.5 BUN 27.0 H Creatinine 1.41 H Est GFR ( Amer) 43 L Est GFR (Non-Af Amer) 36 L BUN/Creatinine Ratio 19.1 Glucose 153 H Estimat Average Glucose Hemoglobin A1c Uric Acid Calcium 9.3 Magnesium Troponin I High Sens 20.6 NT-Pro-B Natriuret Pep 9230.0 H* Influenza Type A Ag Negative Influenza Type B Ag Negative SARS-CoV-2 Ag (CV2AG) Negative POC Glucose 220 H 07/02/25 07/03/25 07/03/25 22:10 05:36 07:25 WBC RBC Hgb Hct MCV MCH MCHC RDW Plt Count MPV Neut % (Auto) Lymph % (Auto) [place] % (Auto) Eos % (Auto) Baso % (Auto) Neut # (Auto) Lymph # (Auto) [place] # (Auto) Eos # (Auto) Baso # (Auto) Abs Immat Gran (auto) Imm/Tot Granulo (auto) Sodium 134 L Potassium 3.9 Chloride 98 Carbon Dioxide 35.7 H Anion Gap 4.2 BUN 28.0 H Creatinine 1.74 H Est GFR ( Amer) 34 L Est GFR (Non-Af Amer) 28 L BUN/Creatinine Ratio 16.1 Glucose 123 H Estimat Average Glucose 169 Hemoglobin A1c 7.5 H Uric Acid 4.0 Calcium 9.3 Magnesium 1.9 Troponin I High Sens 24.8 NT-Pro-B Natriuret Pep 29321.0 H* Influenza Type A Ag Influenza Type B Ag SARS-CoV-2 Ag (CV2AG) POC Glucose 215 H 124 H 07/03/25 11:36 WBC RBC Hgb Hct MCV MCH MCHC RDW Plt Count MPV Neut % (Auto) Lymph % (Auto) [place] % (Auto) Eos % (Auto) Baso % (Auto) Neut # (Auto) Lymph # (Auto) [place] # (Auto) Eos # (Auto) Baso # (Auto) Abs Immat Gran (auto) Imm/Tot Granulo (auto) Sodium Potassium Chloride Carbon Dioxide Anion Gap BUN Creatinine Est GFR ( Amer) Est GFR (Non-Af Amer) BUN/Creatinine Ratio Glucose Estimat Average Glucose Hemoglobin A1c Uric Acid Calcium Magnesium Troponin I High Sens NT-Pro-B Natriuret Pep Influenza Type A Ag Influenza Type B Ag SARS-CoV-2 Ag (CV2AG) POC Glucose 192 H
[2025-07-03] MEDS: INSULIN GLARGINE 300 UNIT/3 ML INSULN.PEN 20 UNIT SQ (21:57)
[2025-07-04] VITALS (8 sets, daily range): BP systolic 135–145; BP diastolic 63–74; PULSE 58–73; TEMP 36.3–36.4; O2SAT 79–98
[2025-07-04 05:49] LABS: Anion Gap 9.7; Blood Urea Nitrogen 34.0 mg/dL (7.0-18.0); Calcium 9.4 mg/dL (8.5-10.1); Carbon Dioxide 35.2 mmol/L (21.0-32.0); Chloride 100 mmol/L (98-107); Estimated GFR (African America 36 (>=60 mL/min/1.73m^2); Estimated GFR (Non-African Ame 29 (>=60 mL/min/1.73m^2); Glucose 138 mg/dL (74-106); Potassium 3.9 mmol/L (3.5-5.1); Sodium 141 mmol/L (136-145)
--- NOTE | 2025-07-04 08:00 | CM.NOTE ---
Rounds made with Dr. Alvarez, discussed plan of care with pt. Pt possible transfer back to [place] today for skilled therapy. Pt has appt with [facility] on Aug 11 for stent removal. PT and OT will evaluate pt prior to discharge.
[2025-07-04] MEDS: NITROGLYCERIN 2% 1 GRAM PACKET 0.5 GM TD (08:21)
[2025-07-04] MEDS: DAPAGLIFLOZIN 5 MG TABLET 10 MG PO (08:22)
[2025-07-04] MEDS: DOCUSATE SODIUM 100 MG CAPSULE PO (08:22)
[2025-07-04] MEDS: METOPROLOL SUCCINATE 25 MG TAB.ER.24H 12.5 MG PO (08:22)
[2025-07-04] MEDS: ALLOPURINOL 300 MG TABLET PO (08:22)
[2025-07-04] MEDS: ASPIRIN 81 MG TABLET.DR PO (08:22)
[2025-07-04] MEDS: MULTIVITAMIN TABLET 1 TAB PO (08:22)
[2025-07-04] MEDS: SPIRONOLACTONE 25 MG TABLET PO (08:22)
[2025-07-04] MEDS: ASCORBIC ACID 500 MG TABLET PO (08:22)
[2025-07-04] MEDS: CARVEDILOL 3.125 MG TABLET PO (08:22)
[2025-07-04] MEDS: CLOPIDOGREL BISULFATE 75 MG TABLET PO (08:22)
[2025-07-04] MEDS: POTASSIUM CHLORIDE 10 MEQ ER TABLET PO (08:22)
[2025-07-04] MEDS: FUROSEMIDE 40 MG/4 ML VIAL IVP (08:23)
[2025-07-04] MEDS: ATORVASTATIN CALCIUM 20 MG TABLET PO (08:23)
[2025-07-04] MEDS: HEPARIN SODIUM (PORCINE) 5,000 UNIT/ML VIAL 5000 UNIT SUBQ (08:26)
[2025-07-04] MEDS: GABAPENTIN 100 MG CAPSULE 300 MG PO (08:26)
--- NOTE | 2025-07-04 09:01 | PM.DS1 ---
DS: Providers Provider Date of admission: 07/02/25 16:29 Primary care physician: Olivia Cazares MD Consults: 07/04/25 Occupational Therapy Eval and Treat Routine Reason for consultation: weakness Physical Therapy Eval and Treat Routine Reason for consultation: weakness DS: Diagnosis Discharge Diagnosis (1) Pulmonary edema: Qualifiers: Chronicity: acute Qualified Code(s): J81.0 - Acute pulmonary edema (2) Acute on chronic hypoxic respiratory failure: (3) Volume overload: Qualifiers: Hypervolemia type: other Qualified Code(s): E87.79 - Other fluid overload (4) Type 2 diabetes mellitus with diabetic neuropathy, unspecified: Qualifiers: Diabetes mellitus extermination supervisor insulin use: unspecified extermination supervisor insulin use status Qualified Code(s): E11.40 - Type 2 diabetes mellitus with diabetic neuropathy, unspecified (5) CKD (chronic kidney disease): Qualifiers: Chronic kidney disease stage: stage 4 (GFR 15-29) Qualified Code(s): N18.4 - Chronic kidney disease, stage 4 (severe) Plan As listed above, below and others that are not listed DS: Summary Hospital Course Hospital Course: Mrs. Cm is an 80-year-old female who came in with shortness of breath and was found to have acute diastolic heart failure, acute respiratory failure and acute pulmonary edema. Patient had received intravenous antibiotic. Her condition stabilized. Patient is feeling great and requesting to be discharged home. Patient is known to have preserved ejection fraction. Patient is euvolemic at this time. Patient is on 2 L of oxygen. Saturation is 7%. Blood pressure stable. Chest exam revealed resolution of bilateral crackles. She does have +1 pitting edema in both legs Multiple other medical conditions which have been stable including CKD. Her kidney function is stable and better than baseline. Diabetes, fair control. Continue long-acting insulin with sliding scale coverage Hyperlipidemia: Continue statin. Chronic hydronephrosis requiring chronic ureteral stents. Patient now has left-sided nephrostomy tube. She has a follow-up appointment with the [facility] urology team end of July. Functional impairment. Patient will need to go back to the skilled facility to complete her skilled days. Patient has multiple complex medical issues as listed above and others that are not listed. All appear to be stable. Patient wants to go back to the [facility] today so she does not lose a bed there. Patient is looking good. At baseline. At this time, I do not have any clear or strong clinical justification to extend inpatient hospitalization. Patient however will require close and frequent monitoring as well as additional work-up, investigation and therapeutic intervention that could take place from this point on post discharge. That is to prevent relapse, decompensation, rehospitalization and other medical implications.. I instructed patient to ask her primary care doctor to obtain [facility] record entirely to address abnormalities seen on labs and imaging that I have and have not addressed during this hospitalization, follow-up on pending blood work, imaging and pathology is if available and to follow-up on needed medical care in the outpatient setting. Time Spent with Patient Time attestation: Total time spent providing and/or coordinating discharge services: Time spent: greater than 30 minutes Exam Constitutional Vital Signs, click to edit/add: Last Vital Signs Temp 97.4 F L 07/04/25 07:24 Pulse 73 07/04/25 07:55 Resp 16 07/04/25 07:24 BP 145/63 H 07/04/25 07:24 Pulse Ox 97 07/04/25 07:24 O2 Del Method Nasal Cannula 07/04/25 07:24 O2 Flow Rate 2 07/04/25 07:24 DS: Data Data Completed and Pending Labs on day of discharge: Labs from last 24 hours 07/04/25 07/03/25 07/03/25 04:49 21:56 11:36 Sodium 141 Potassium 3.9 Chloride 100 Carbon Dioxide 35.2 H Anion Gap 9.7 BUN 34.0 H Creatinine 1.68 H Est GFR ( Amer) 36 L Est GFR (Non-Af Amer) 29 L BUN/Creatinine Ratio 20.2 Glucose 138 H Calcium 9.4 POC Glucose 202 H 192 H Discharge Plan Discharge Disposition: Xfer SNF Condition: Fair Discharge Medications: New spironolactone 25 mg Tablet 25 mg PO QD Qty: 30 0RF metoprolol succinate 25 mg Tablet Extended Release 24 Hr 25 mg PO QD Qty: 0 0RF insulin aspart U-100 [Novolog FlexPen U-100 Insulin] 100 unit/mL (3 mL) Insulin Pen 3 - 15 unit subcut ACHS Qty: 0 0RF multivitamin with folic acid [Tab-A-Darrel] 400 mcg Tablet 1 tab PO QD Qty: 0 0RF gabapentin [Neurontin] 100 mg capsule 200 mg PO BID Qty: 30 0RF torsemide 20 mg tablet 30 mg PO DAILY Qty: 30 0RF losartan 25 mg tablet 25 mg PO DAILY Qty: 30 0RF Continued allopurinol 300 mg tablet 300 mg PO DAILY cholecalciferol (vitamin D3) 125 mcg (5,000 unit) tablet 125 mcg PO .every other day clopidogrel 75 mg tablet 75 mg PO DAILY docusate sodium [Colace] 100 mg capsule 100 mg PO .QHS aspirin 81 mg tablet,delayed release (DR/EC) 81 mg PO DAILY rosuvastatin 5 mg tablet 5 mg PO DAILY Glucagon Emergency Kit (human) 1 mg Recon Soln 1 mg IV Q15M PRN (Reason: Hypoglycemia) Qty: 0 0RF Changed acetaminophen 500 mg tablet 500 mg PO Q8H PRN (Reason: fever or pain) Qty: 0 0RF insulin glargine [Lantus Solostar U-100 Insulin] 100 unit/mL (3 mL) insulin pen 28 unit subcut QPM Qty: 0 0RF Discontinued ascorbic acid (vitamin C) 500 mg capsule 500 mg PO DAILY potassium chloride 10 mEq capsule, extended release 10 meq PO DAILY ondansetron HCl 4 mg tablet 4 mg PO Q8H PRN (Reason: nausea and vomiting) insulin lispro [Humalog KwikPen Insulin] 100 unit/mL insulin pen 1 sliding scale dose subcut USEASDIRECTD gabapentin 300 mg capsule 300 mg PO Q12H carvedilol 25 mg tablet 25 mg PO Q12H furosemide 40 mg tablet 40 mg PO DAILY spironolactone 25 mg tablet 12.5 mg PO DAILY Print Language: Mongolian Activity Restrictions/Additional Instructions: I may not have addressed or treated all of your medical illnesses or the abnormal blood work or imaging studies during this hospitalization. Please ask your primary care provider to obtain [facility] records entirely to follow up on all of the abnormal physical, laboratory, and imaging findings that I have not addressed. For skilled nursing providers Fall risk Request BMP and CBC every Weigh patient twice a week Adjust diuretics to keep weight stable Adjust BP meds to keep systolic blood pressure between 135 and 150 Please return back to the emergency room or seek medical attention if your symptoms worsen or return. Discharging you from [facility] does not mean that your medical care ends here and now. You may still need additional monitoring, work up, investigation, and treatment plan to be handled from this point on by out patient providers including your primary care provider and specialists. For any medication question, please contact your retail pharmacist or your primary care provider. Thank you. Forms: Portal Instructions Follow Up Appointments: Keep 08/11/25 appt. at [facility] for stent removal
--- NOTE | 2025-07-04 09:03 | SWNOTE1 ---
Pt is from the [facility]. EDY called Danielle and let her know that pt is ready for discharge back to [facility] today. EDY to send orders.
--- NOTE | 2025-07-04 09:25 | SWNOTE1 ---
EDY faxed ma med rec, all physician notes, labs, vitals, and diagnostic imaging to Danielle and Rogers at the [facility]. Pt is returning to [facility] skilled.
--- NOTE | 2025-07-04 10:02 | SWNOTE1 ---
EDY spoke with pt's nurse and pt can go by wheelchair. EDY asked [facility] if they had transport and per Rogers they do not. EDY called and set up Trips for 10:30-11:00. EDY let [facility] and nurse know time. EDY called pt's and had to leave message with time pt is returning to [facility]. EDY also called pt's daughter, Niyah, and spoke with her and let her know time of discharge. EDY took packet to the floor for nursing.
--- NOTE | 2025-07-04 10:20 | CM.NOTE ---
Important Message From Medicare discussed with pt, pt verbalizes understanding and signs paper. Original given to pt and copy placed on pt's chart.
== END 2025-07-04 10:35 | DRG 291 ==
LOC: ER 16:30 → MS 16:33
PROVIDERS: Admitting Provider Hospitalist; Emergency Provider Emergency Medicine; PCP Family Medicine; Visit Provider Hospitalist
DX: I13.0 Hypertensive heart and chronic kidney disease with heart failure and stage 1 through stage 4 chronic kidney disease, or unspecified chronic kidney disease (principal); I50.33 Acute on chronic diastolic (congestive) heart failure; J96.21 Acute and chronic respiratory failure with hypoxia; N18.4 Chronic kidney disease, stage 4 (severe); I08.1 Rheumatic disorders of both mitral and tricuspid valves; E11.22 Type 2 diabetes mellitus with diabetic chronic kidney disease; E11.51 Type 2 diabetes mellitus with diabetic peripheral angiopathy without gangrene; E11.40 Type 2 diabetes mellitus with diabetic neuropathy, unspecified; M10.9 Gout, unspecified; Z87.891 Personal history of nicotine dependence; Z93.6 Other artificial openings of urinary tract status; Z79.02 Long term (current) use of antithrombotics/antiplatelets; Z79.4 Long term (current) use of insulin; Z79.899 Other long term (current) drug therapy
CPT/HCPCS: 36415; 71045; 80048; 82948; 83036; 83735; 83880; 84484; 84550; 85025; 87804; 87811; 93005; J1644; J1938

== ENCOUNTER 2025-07-13 12:38 | Emergency (ER) | payer MEDICARE, SELFPAY ==
--- OUTSIDE RECORDS SUMMARY | 2024-03-01 08:00 | XMS_ITS ---
Author Organization The [facility] in [place] Address [address] [place] [address] Care Team Providers Care Training Instructor Name Role Phone Sage MARLOW, Olivia Primary Care Provider Unavailab Annie Amezquita Unavailable [phone] REASON FOR VISIT nails Encounters Encounter Location Date Provider Diagnosis [facility] (PODIATRY) [address] [place] [address] [place] [address] 03/01/2024 Annie Gasca Plan Of Treatment No Information Progress Notes * Lexi CM LDOB:1944 (80 yo F)Acc No.[id number]:03/01/2024 UNLOCKED PROGRESS NOTE Nurse Visit Patient: Lexi SALAZAR :?RAMON HernandezCDOB:1945???Age:78 Y ???Sex:FemaleDate:4Phone:[phone]:[address] [place] [address]Lpw:Olivia Cazares MD Subjective: * Chief Complaints: * 1 . Nails. * Medical History: Objective: * Vitals: Assessment: Plan: * Treatment: * * Electronic signature of Annie Gasca PA-C on 07/13/2025 at 12:57 PM ESTSign off status: PendingVisit Status:?CANC (Cancelled) * Provider: Azul Gasca PA-C Date: 0 03/01/2024 Generated for Printing/Faxing/eTransmitting on:?07/13/2025 12:57 PM EST
--- OUTSIDE RECORDS SUMMARY | 2024-08-02 10:30 | XMS_ITS ---
Author Organization The [facility] in [place] Address [address] [place] [address] Care Team Providers Care Planting Machine Operator Name Role Phone Olivia Cazares MD Primary Care Provider Unavailab demetrio Annie Gasca Unavailable [phone] Allergies No Known Allergies REASON FOR VISIT [...] Encounters Encounter Location Date Provider Diagnosis [facility] (PODIATRY) [address] [place] [address] [place] [address] 08/02/2024 Annie Gasca Type 2 diabetes mellitus [...] * Lexi CM LDOB:1944 (80 yo F)Acc No.[id number]:08/02/2024 UNLOCKED PROGRESS NOTE Nurse Visit Patient: Serge JAZMÍN Lexi Nestor :?RAMON HernandezCDOB:1945???Age:79 Y ???Sex:FemaleDate:08/02/2024Phone:[phone]:[address] [place] [address] [place], oH-[address]Tig:Daisy Salinas In:03:17 PM ESTCheck Out:03:39 PM EST Subjective: [...] at 12:57 PM ESTSign off status: PendingVisit Status:?CHK (Check Out) * Provider: Azul Gasca PA-C Date: 0 08/02/2024 Generated for Printing/Faxing/eTransmitting on:?07/13/2025 12:57 PM EST History and Physical Notes * HPI (History of Present Illness) CategorySub-CategoryDetailNotesCategory NotesGeneralNails 1-10 were trimmed and filed down to patients liking. No area of concern to toes.
--- OUTSIDE RECORDS SUMMARY | 2024-10-25 10:00 | XMS_ITS ---
Author Organization [facility] in [place] Address [address] [place] [address] Care Team Providers Care Flux Plant Operator Name Role Phone Olivia Cazares MD Primary Care Provider Unavailab Annie Amezquita Unavailable [phone] REASON FOR VISIT Nail Care Encounters Encounter Location Date Provider Diagnosis [facility] (PODIATRY) [address] [place] [address] [place] [address] 10/25/2024 Annie Gasca Plan Of Treatment No Information Progress Notes * Lexi CM LDOB:1944 (80 yo F)Acc No.[id number]:10/25/2024 UNLOCKED PROGRESS NOTE Nurse Visit Patient: Lexi SALAZAR :?RAMON HernandezCDOB:1945???Age:79 Y ???Sex:FemaleDate:10/25/2024Phone:[phone]:[address] [place] [address]Ske:Olivia Cazares MD Subjective: * Chief Complaints: * 1 . Nail Care. * Medical History: Objective: * Vitals: Assessment: Plan: * Treatment: * * Electronic signature of Annie Gasca PA-C on 07/13/2025 at 12:56 PM ESTSign off status: PendingVisit Status:?OFF CANC (OFFICE CANCEL) * Provider: Azul Gasca PA-C Date: 0 10/25/2024 Generated for Printing/Faxing/eTransmitting on:?07/13/2025 12:56 PM EST
--- OUTSIDE RECORDS SUMMARY | 2025-06-28 08:42 | XMS_ITS | Encounter Summary ---
Author Organization [facility] Address [address] [place] [address] Care Team Providers Care In Home Sales Representative Name Role Phone Yaniv Natarajan MD Unavailable [phone] Source Comments In the event this information is protected by the Federal Confidentiality of Alcohol and Drug AbusePatient Records regulations: The Federal rules restrict any use of the information to criminally investigate or prosecute any alcohol or drug abuse patient.[facility] Reason for Referral * Diagnostic Procedure Only (Urgent) - ClosedSpecialtyDiagnoses / Procedures Referred By ContactReferred To ContactXR IMAGING Diagnoses Hydronephrosis, unspecified hydronephrosis type Procedures XR ABDOMEN 2V ROUTINE SUPINE W UPRIGHT/DECUB/CTL RADIOLOGIC EXAM ABDOMEN 2 VIEWS Romel Maria MD [address] [place] [address] Phone: tel: fax: [place] [address] Referral IDStatusReasonStart DateExpiration DateVisits RequestedVisits [id number] Auto-Generated Referral / Reason for Visit * Diagnostic Procedure Only (Urgent) - ClosedSpecialtyDiagnoses / Procedures Referred By ContactReferred To ContactXR IMAGING Diagnoses Hydronephrosis, unspecified hydronephrosis type Procedures XR ABDOMEN 2V ROUTINE SUPINE W UPRIGHT/DECUB/CTL RADIOLOGIC EXAM ABDOMEN 2 VIEWS Romel Maria MD [address] [facility] [place] [address] Phone: tel: fax: [place] [address] Referral IDStatusReasonStart DateExpiration DateVisits RequestedVisits [id number] Auto-Generated Referral / Encounter Details DateTypeDepartmentCare Team (Latest Contact Info)Txdqrjuatyl30/16/2025 8:42 AM EST - 06/28/2025 11:59 PM ESTHospital Encounter Radiology [address] [facility] [place] [place] [address] Hydronephrosis, unspecified hydronephrosis type [N13.30] Discharge Disposition: Home Social History Tobacco UseTypesPacks/DayYears UsedDateSmoking Tobacco: Never Assessed CommentsUnknownSex and Gender InformationValueDate RecordedSex Assigned at Not on fileLegal HtdXvynuv48/03/2025 12:53 PM ESTGender IdentityNot on file Sexual OrientationNot on filedocumented as of this encounter Medications at Time of Discharge MedicationSigDispense QuantityRefillsLast FilledStart DateEnd Date allopurinol (ZYLOPRIM) 300 mg tablet Take 300 mg by mouth once daily. ascorbic acid, vitamin C, (VITAMIN C) 500 mg tablet Take 500 mg by mouth. carvedilol (COREG) 3.125 mg tablet Take 3.125 mg by mouth.05/18/2025 Cholecalciferol, Vitamin D3, 125 mcg (5,000 unit) cap Take 5,000 Units by mouth once daily.06/02/2025 insulin glargine 100 unit/mL (3 mL) Inject 20 Units subcutaneously.05/18/2025 potassium chloride ER (KLOR-CON M10) 10 mEq tablet Take 10 mEq by mouth. bumetanide (BUMEX) 2 mg tablet 2 mg every 48 hours.05/21/2025 ondansetron orally disintegrating (ZOFRAN ODT) 4 mg disintegrating tablet Take 4 mg by mouth every 8 hours as needed for nausea/vomiting. gabapentin (NEURONTIN) 300 mg capsule Take 300 mg by mouth two times a day.04/22/2025documented as of this encounter Plan of Treatment DateTypeDepartmentCare Team (Latest Contact Info)Rstsdoqkwzv86/13/2026 10:50 AM ESTPAT Pre Anesthesia [address] [place] [address] declined VV -08/10 - CYSTOURETHROSCOPY W9/ URETEROSCOPY AND/OR PYELOSCOPY W/ LITHOTRIPSY INCLUDE INSERTION OF INDWELLING URETERAL STENT [15804] [37115] - Ureter - Dmirqwini38/28/2026 12:45 PM ESTHospital Encounter [facility] Operating Room [address] [place] [address] Romel Maria MD [address] [place] [address] Hydronephrosis, unspecified hydronephrosis type [N13.30], Presence of other specified devices [Z97.8], Recurrent urinary tract infection [N39.0]08/10/2025 12:45 PM EST - 08/10/2025 2:45 PM ESTSurgery [facility] [address] [place] [address] Romel Maria MD [address] [place] [address] CYSTOURETHROSCOPY W9/ URETEROSCOPY AND/OR PYELOSCOPY W/ LITHOTRIPSY INCLUDE INSERTION OF INDWELLINGURETERAL STENT [69640]08/25/2025 9:40 AM [facility] Urology [address] [place] [address] Romel Maria MD [address] [place] [address] post opNamePriorityAssociated DiagnosesDate/TimeCYSTOURETHROSCOPY W/ URETEROSCOPY AND/OR PYELOSCOPY W/ LITHOTRIPSY INCLUDE INSERTION OF INDWELLING U RETERAL STENT Hydronephrosis, unspecified hydronephrosis type Presence of other specified devices Recurrent urinary tract infection 08/10/2025 12:45 PM ESTdocumented as of this encounter Procedures Procedure NamePriorityDate/TimeAssociated DiagnosisCommentsXR ABDOMEN 2V ROUTINE SUPINE W UPRIGHT/DECUB/OFVCIWY79/16/2025 9:11 AM EST Hydronephrosis, unspecified hydronephrosis type [...] ureteral stent and left percutaneous nephrostomy tube. Care Transport Nurse: WALTER ?? Transcribe Date/Time: Jun 28 2025 [...] nephrostomy tube placed one month ago at [facility] due to stents not functioning properly. TECHNIQUE: 3 views of the abdomen and pelvis. RESULT: Right ureteral stent is noted. ??The left ureteral stent is noted with the superior segment that is coiled. ??A left nephrostomy tube is noted. Left hip arthroplasty. ??Postoperative changes of the chest. ??No evidence of bowel obstruction. Procedure Note Provider, [facility] [place] - 06/28/2025 * * *Final Report* * [...] nephrostomy tube placed one month ago at [facility] due to stents not functioning properly. TECHNIQUE: [...] ureteral stent and left percutaneous nephrostomy tube. Care Transport Nurse: [facility] Transcribe Date/Time: Jun 28 2025 9:54A Dictated by : CHEVY CASTRO MD This examination was interpreted and the report reviewed and electronically signed by: CHEVY CASTRO MD on Jun 28 2025 10:01AM EST Authorizing ProviderResult TypeResult StatusFerjen Maria MDRAD-PAMAFinal Result documented in this encounter Visit Diagnoses Diagnosis Hydronephrosis, unspecified hydronephrosis type Hydronephrosis, unspecified hydronephrosis type Presence of other specified devices Recurrent urinary tract infection Urinary tract infection, site not specified documented in this encounter Care Teams Team MemberRelationshipSpecialtyStart DateEnd Date Yaniv Natarajan MD [address] [place] [address] VgexboltiSptwoxf18/3/25documented as of this encounter
[2025-07-13] VITALS (40 sets, daily range): BP systolic 113–140; BP diastolic 51–79; PULSE 58–70; TEMP 36.7; O2SAT 97–100; BMI 34.3
--- OUTSIDE RECORDS SUMMARY | 2025-07-13 12:57 | XMS_ITS | Encounter Summary ---
Author Organization [facility] Address [address] [place] [address] Care Team Providers Care Maintenance Painter Apprentice Name Role Phone Yaniv Natarajan MD Unavailable Source Comments In the event this information is protected by the Federal Confidentiality of Alcohol and Drug AbusePatient Records regulations: The Federal rules restrict any use of the information to criminally investigate or prosecute any alcohol or drug abuse patient.[facility] Reason for Visit * ReasonCommentsPatient Question Encounter Details DateTypeDepartmentCare Team (Latest Contact Info)Pxkkyxepbbs01/22/2025Telephone [address] [place] [address] Romel Maria MD [address] [place], [place] [id number] Patient Question Social History Tobacco UseTypesPacks/DayYears UsedDateSmoking Tobacco: Never Assessed CommentsUnknownSex and Gender InformationValueDate RecordedSex Assigned at Not on fileLegal MwwJuczio72/03/2025 12:53 PM ESTGender IdentityNot on file Sexual OrientationNot on filedocumented as of this encounter Miscellaneous Notes * Telephone Encounter - Casie Baker LPN - 07/04/2025 3:41 PM EST Due to no answer at facility. Verbal orders have been faxed to nurse Elicia on [address] at this time. Confirmation has been received. No further action is required at this time. * Telephone Encounter - Casie Baker LPN - 07/04/2025 3:40 PM EST Call placed at number below. Phone rang multiple times. Did not speak to anyone. Will fax verbal orders * Telephone Encounter - Romel Maria MD - 07/04/2025 3:25 PM EST I would stop plavix 5 days before surgery. Does not make sense to take if for a single day , I guess. M thanks f * Telephone Encounter - Natalio Victor - 07/04/2025 2:58 PM EST Elicia ROB from [facility] is calling Romel Maria MD today Asking if the Plavix shouldstill be on hold or if they should resume taking the medication until next procedure. Please adviseand call Elicia back at [phone] ask fr [address]. Patient Question Patient has been identified by name and birthdate. Duration of symptoms: N/A Person calling: self Call patient at: at home [phone] (home) [phone] (cell) Was an appointment scheduled: No Closing statement: Results or non-symptom based questions: Thank you for calling [facility], your call will be returned within the next business day. Natalio Victor documented in this encounter Plan of Treatment DateTypeDepartmentCare Team (Latest Contact Info)Lstxjrxntqe81/13/2026 10:50 AM ESTPAT Pre Anesthesia [address] [place] [address] declined VV -08/10 - CYSTOURETHROSCOPY W9/ URETEROSCOPY AND/OR PYELOSCOPY W/ LITHOTRIPSY INCLUDE INSERTION OF INDWELLING URETERAL STENT [[id number]] [14900] - Ureter - Sugpclnfv11/28/2026 12:45 PM ESTHospital Encounter [facility] Operating Room [address] [place] [address] Romel Maria MD [address] [place] [address] Hydronephrosis, unspecified hydronephrosis type [N13.30], Presence of other specified devices [Z97.8], Recurrent urinary tract infection [N39.0]08/10/2025 12:45 PM EST - 08/10/2025 2:45 PM ESTSurgery [facility] Operating Room [address] [place] [address] Romel Maria MD [address] [place] [address] CYSTOURETHROSCOPY W9/ URETEROSCOPY AND/OR PYELOSCOPY W/ LITHOTRIPSY INCLUDE INSERTION OF INDWELLINGURETERAL STENT [[id number]]08/25/2025 9:40 AM Urology [address] [place] [address] Romel Maria MD [address] [place] [address] post opNamePriorityAssociated DiagnosesDate/TimeCYSTOURETHROSCOPY W/ URETEROSCOPY AND/OR PYELOSCOPY W/ LITHOTRIPSY INCLUDE INSERTION OF INDWELLING U RETERAL STENT Hydronephrosis, unspecified hydronephrosis type Presence of other specified devices Recurrent urinary tract infection 08/10/2025 12:45 PM ESTdocumented as of this encounter Goals GoalPatient Goal TypeAssociated ProblemsRecent ProgressPatient-Stated?Author Autogenerated Goal Care PlanAutogenerated ProblemNoMazza, Beckydocumented as of this encounter Visit Diagnoses Not on filedocumented in this encounter Additional Health Concerns Active ProblemsNoted DateDiagnosed DateAutogenerated Ajtjtfb7807/04/2025documented as of this encounter Care Teams Team MemberRelationshipSpecialtyStart DateEnd Yaniv Natarajan MD [address] [place] [address] CtyopaozzNuufger63/3/25documented as of this encounter
--- OUTSIDE RECORDS SUMMARY | 2025-07-13 12:57 | XMS_ITS | Encounter Summary ---
Author Organization [facility] Address [address] [place] [address] Care Team Providers Care Conveyor Mechanic Name Role Phone Yaniv Natarajan MD Unavailable [phone] Source Comments In the event this information is protected by the Federal Confidentiality of Alcohol and Drug AbusePatient Records regulations: The Federal rules restrict any use of the information to criminally investigate or prosecute any alcohol or drug abuse patient.[facility] Reason for Visit * ReasonCommentsPatient Question Encounter Details DateTypeDepartmentCare Team (Latest Contact Info)Tjbjjrojkjj14/18/2025Telephone Internal Medicine [address] [place], [place] [phone] Romel Maria MD [address] [place] [address] Patient Question Social History Tobacco UseTypesPacks/DayYears UsedDateSmoking Tobacco: Never Assessed CommentsUnknownSex and Gender InformationValueDate RecordedSex Assigned at Not on fileLegal VmiCcyuaa23/03/2025 12:53 PM ESTGender IdentityNot on file Sexual OrientationNot on filedocumented as of this encounter Miscellaneous Notes * Telephone Encounter - Casie Baker LPN - 07/04/2025 3:35 PM EST Confirmation of fax received at this time. * Telephone Encounter - Casie Baker LPN - 07/04/2025 3:07 PM EST Fax attempted again at this time with Last OV notes from Dr. Maria and recent labs. There is also a message out in regards to resuming Plavix. Once responded to this can be communicated back, see additional encounter. * Telephone Encounter - Oralia Lyons MA - 07/01/2025 10:51 AM EST Unable to fax information to number listed below. Called the facility and was given a updated fax number. [phone]. Have attempted to fax documents to the new number with no luck. Will attempt at another time. * Telephone Encounter - Nuris Webb - 06/30/2025 1:10 PM EST Mayi from [facility] is calling Romel Maria MD today to request most recent office notes and urine test results to be faxed over to their facility. Please advise. Fax number: [phone] (attention [facility] nurse) Patient has been identified by name and birthdate. Duration of symptoms: N/A Person calling: Mayi Call at: [phone] Was an appointment scheduled: No Closing statement: Results or non-symptom based questions: Thank you for calling [facility], your call will be returned within the next business day. Thank you, Nuris Webb documented in this encounter Plan of Treatment DateTypeDepartmentCare Team (Latest Contact Info)Wopwpaepphk88/13/2026 10:50 AM ESTPAT Pre Anesthesia [address] [place] [address] declined VV -08/10 - CYSTOURETHROSCOPY W9/ URETEROSCOPY AND/OR PYELOSCOPY W/ LITHOTRIPSY INCLUDE INSERTION OF INDWELLING URETERAL STENT [47340] [78623] - Ureter - Ktelwtfym88/28/2026 12:45 PM ESTHospital Encounter [facility] Operating Room [address] [place] [address] Romel Maria MD [address] [place] [address] Hydronephrosis, unspecified hydronephrosis type [N13.30], Presence of other specified devices [Z97.8], Recurrent urinary tract infection [N39.0]08/10/2025 12:45 PM EST - 08/10/2025 2:45 PM ESTSurgery [facility] Operating Room [address] [place] [address] Romel Maria MD [address] [place] [address] CYSTOURETHROSCOPY W9/ URETEROSCOPY AND/OR PYELOSCOPY W/ LITHOTRIPSY INCLUDE INSERTION OF INDWELLINGURETERAL STENT [54347]08/25/2025 9:40 AM [facility] Urology [address] [place] [address] Romel Maria MD [address] [place] [address] post opNamePriorityAssociated DiagnosesDate/TimeCYSTOURETHROSCOPY W/ URETEROSCOPY AND/OR PYELOSCOPY W/ LITHOTRIPSY INCLUDE INSERTION OF INDWELLING U RETERAL STENT Hydronephrosis, unspecified hydronephrosis type Presence of other specified devices Recurrent urinary tract infection 08/10/2025 12:45 PM ESTdocumented as of this encounter Visit Diagnoses Not on filedocumented in this encounter Care Teams Team MemberRelationshipSpecialtyStart DateEnd Date Yaniv Natarajan MD [address] [place] [address] GpqxkwlskHmoubcb96/3/25documented as of this encounter
--- OUTSIDE RECORDS SUMMARY | 2025-07-13 12:57 | XMS_ITS | Patient Health Record ---
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 Name Role Phone Olivia Cazares MD Primary Care Provider Unavailab Maame Infante Unavailable [phone] Annie Gasca Unavailable [phone] Allergies No Known Allergies Reason For Referral [...] Status Risk Notes Problem Peripheral vascular disease (390465228) Peripheral vascular disease, unspecified (I73.9) ActiveconfirmedProblemType 2 diabetes mellitus with other specified complication (E11.69)ActiveconfirmedProblemMitral valve disorder (20814428)Moderate mitral regurgitation (I34.0)ActiveconfirmedProblemCoronary artery disease (76069425)CAD (coronary artery disease) (I25.10)ActiveconfirmedProblemHypertension (96286500) HTN (hypertension) (I10)ActiveconfirmedProblemLeft ventricular hypertrophy (65433529)Left ventricular hypertrophy (I51.7)ActiveconfirmedProblemGout (52483167)Gout (M10.9)ActiveconfirmedProblemDiabetes mellitus type 2 (disorder) (36883707)DM2 (diabetes mellitus, type 2) (E11.9)ActiveconfirmedProblemTricuspid valve disorder (33470511)Moderate tricuspid regurgitation (I07.1)Activeconfirmed Vital Signs Heart Rate 75 /min 08/02/2024 Txmrbzewpaw59.1 degrees Utfuxpphja65/20/2911Kvtavrio10 %08/02/20248098Xvthsv04 in 08/02/20249857Jdpgpw089 lbs08/02/2024BMI33.32 kg/m208/02/2024 Encounters Encounter Location Date Provider Diagnosis [facility] (PODIATRY) [address] [place] [address] [place] [address] 08/02/2024 Annie Gasca Type 2 diabetes mellitus with other specified complication E11.69 ; Pain in left toe(s) M79.675 and Peripheral vascular disease, unspecified I73.[address] [address] 05/12/2025 Maame Oseguera Assessments Encounter Date Diagnosis [...] End Date MEDIC[place] [address] [place] [address] [id number] Neha Cm - [facility] [address] [place] [id number] Neha Lowery - patient is the insured Medical (General) History Medical History History ICD Code arthritis diabetesheart diseaseperipheral vascular diseaseSurgical History Surgery Date(Month/Year) heart bypass
--- OUTSIDE RECORDS SUMMARY | 2025-07-13 12:57 | XMS_ITS | Clinical Summary ---
Author Organization Leikr tem Address [id number] [address] [place] [address] Care Team Providers Care [facility] Administrator Name Role Phone Olivia Cazares MD Primary Care Provider [phone] Allergies No known active allergies Medications MedicationSigDispense [...] before bedtime.5Active Active Problems ProblemNoted DateDiagnosed DateRespiratory wijeeqy7505/08/2025ute exacerbation of CHF (congestive heart failure)05/08/2025 Encounters DateTypeDepartmentCare BkclYjqdmdjayjr39/21/2025Telephone [facility] Infectious Disease [address] [address] Dorota Maxwell CMA 06/03/20251449Fvbzyo35/08/2025Telephone [facility] [address] [place] [phone] Kylie Salas RN Qlhqnjw1105/20/2025Telephone [facility] Pulmonary/Sleep Medicine [address] [facility] [address] [place] [phone] Rohini Manley, VAT TENDER-NEUROPSYCHOLOGY SERVICE DIRECTOR 05/20/2025Telephone [facility] Infectious Disease [address] [facility] [address] [place] [address] Asya Silver MA 05/18/2025Telephone [facility] Medication Management [address] [phone] Mer Jean-Baptiste [facility] 05/13/2025Orders Only [facility] Medication Management [address] [address] Medication Management, [facility] 05/09/20252454Bteiol05/27/2025Orders Only [facility] [address] [place] [phone] Transcribe, Orders Support User Pain (Primary Dx)05/08/2025 8:24 PM EDT - 05/20/2025 11:00 AM ESTHospital Encounter [facility] GEN [address] Progressive [address] [place] [phone] Sunshine Parikh MD Noumi, MD Hoda Gtz Amulya R, MD Dimmerling, Janel Ybarra MD Chronic hypercapnia (Primary Dx); Obesity hypoventilation syndrome ([facility]); Urinary tract infection without hematuria, site unspecified Discharge Disposition: Half-Way Facility-Medicare Cert05/08/2025 4:00 PM EDTAncillary Procedure [facility] [address] [place] [phone] Pain05/08/2025 11:45 AM EDTAncillary Procedure [facility] [address] [place] [phone] Pain05/02/2025 2:45 PM EDTAncillary Procedure [facility] [address] [place] [phone] Pain05/02/2025 1:05 PM EDTAncillary Procedure [facility] [address] [place] [phone] Pain05/02/2025 1:00 PM EDTAncillary Procedure [facility] [address] [place] [phone] Pain05/02/2025 10:20 AM EDTAncillary Procedure [facility] [address] [place] [phone] Painfrom Last 3 Months Immunizations ImmunizationAdministration DatesNext DueInfluenza (IM) Preservative Free 04/30/2011Pneumococcal Xqpgqisalgskwn92/05/2012(Deferred: Other - Never)Td (adult), 5 Lf tetanus toxoid, preservative free, /05/2012,12/17/2011, 12/17/2011,12/17/2011,12/17/2011,12/17/2011,12/17/2011,12/17/2011,12/17/2011, 12/17/20114924Ppmkfrh61/05/2012Zoster Live12/17/2011(Deferred: Other - Never) Social History Tobacco UseTypesPacks/DayYears UsedDateSmoking Tobacco: NeverSmokeless Tobacco: Never Tobacco Cessation:Counseling Given: Not Answered Alcohol UseStandard Drinks/WeekCommentsNever0 (1 standard drink = 0.6 oz pure alcohol)PHQ-2AnswerDate RecordedTotal Jwwej921UDIT-CAnswerDate Recorded Q1: How often do you have [...] as a part of a household?No 05/09/2025hildcareAnswerDate EjdgdjxfLxyrxiaknEhzelow61/10/2019EmploymentAnswer Date OkuaogqxLzxnzswrywQozpzcl20/10/2019Hunger ScreeningAnswerDate Recorded Within the past 12 months we worried whether our food would run out before we got money to buy more.Never True05/09/2025Within the past 12 months the food we bought just didn't last and we didn't have money to get more.Never True 05/09/2025CommentsNoSex and Gender InformationValueDate RecordedSex Assigned at BirthNot on fileLegal CeuMhrhgw89/26/2025 3:17 PM EDTGender Identity Not on fileSexual OrientationNot on file Last Filed Vital Signs Vital SignReadingTime TakenCommentsBlood Zfyjnxkb682/9005/20/2025 9:00 AM EST Dmcex990205/20/2025 9:00 AM TRGOdkusatldhg67.3 ??C (97.4 ??F)05/20/2025 8:00 AM ESTRespiratory Sjtb493007/20/2024 9:00 AM ESTOxygen Arayipmnoa707%05/20/2025 9:00 AM ESTInhaled Oxygen Concentration--Fmwycw12.3 kg (148 lb 5.9 oz)05/20/2025 5:00 AM GMLVrnopk009.9 cm (4' 11 )05/09/2025 5:00 PM EDTBody Mass Index29.97 05/09/2025 5:00 PM EDT Plan of Treatment Health MaintenanceDue DateLast DoneCommentsZoster (Shingles) Vaccine (1 of 2) 1995Fall Risk Ttbdojjha72/22/2010DTaP,Tdap and Td Vaccines (1 - Tdap) , 12/17/2011, 12/17/2011, Additional history existsRSV ( or age 60+ yrs) (1 - 1-dose 75+ series)2020COVID-19 Vaccine ( - season)5108/18/2021, 04/13/2021, 08/30/2020, Additional history existsInfluenza Vlpkqet27/, 07/01/2019, 07/14/2018, Additional history existsDepression Xrjaajqfk36Tobacco Screening Goals GoalPatient Goal TypeAssociated ProblemsRecent ProgressPatient-Stated?Author Home with spouse and home care services Eden Schilling Note: Evaluation of progress towards goal: Home with spouse and [facility] services Medical Devices Not on file Procedures Procedure NamePriorityDate/TimeAssociated DiagnosisCommentsBEDSIDE GLUCOSE Qjfgwxb8105/20/2025 8:47 AM EST YBRIGBHNBWWgmepqx02/07/2025 5:44 AM EST HJAYBIEMCHimoucr72/07/2025 5:44 AM EST BASIC METABOLIC ZSQEFTrucczx50/07/2025 5:44 AM EST CBC WITH AUTO QDVNUSTEWLNWYtjbfsn08/07/2025 5:44 AM EST BEDSIDE GHHQAZCBdwjoiu11/06/2025 9:04 PM EST BEDSIDE LLZXIGFLkdlziy98/06/2025 4:07 PM EST XR ABDOMEN AP 1 LUOtnvdmk82/06/2025 3:28 PM EST BEDSIDE RHBLDKEHouktwu45/06/2025 12:21 PM EST BEDSIDE NFZUMKMNzcizcy64/06/2025 8:47 AM EST CK TOTALAdd-On05/19/2025 6:12 AM EST VBTCVVGVGYEghksbd40/06/2025 6:12 AM EST UEVGQRWFBRisxqne00/06/2025 6:12 AM EST BASIC METABOLIC PEPCDOodgqtx07/06/2025 6:12 AM EST CBC WITH AUTO HOOSPLDCONLMXlnduag26/06/2025 6:12 AM EST IMPZPIKYYXIPjxycqa04/06/2025 4:00 AM ESTBLOOD GAS, HPGSWVFVSuxznta43/06/2025 12:12 AM EST EKWDIDJYNZXIwvwvmv72/06/2025 12:00 AM ESTBEDSIDE MFHPFNUSegyood38/05/2025 9:44 PM EST SMZIPZSEAAEOhwwyov12/05/2025 8:00 PM ESTBEDSIDE UEVEZGEUniddre75/05/2025 4:26 PM EST XR CHEST 1 GACoeopai76/05/2025 4:16 PM EST CKHXQUEXLJqgxpnc56/05/2025 1:36 PM EST BEDSIDE TORSERMNqrfidh65/05/2025 12:48 PM EST TSSWVWUVGROKlxebvc72/05/2025 12:00 PM ESTBEDSIDE FQSQPGYLnphlne26/05/2025 9:09 AM EST BEDSIDE YQZCSZPQnqzucg65/05/2025 8:27 AM EST ONIHJHADZYZvspzca11/05/2025 5:37 AM EST EKEXXKITJYohmrdu05/05/2025 5:37 AM EST BASIC METABOLIC RRVOYOvrbhbm27/05/2025 5:37 AM EST CBC WITH AUTO FYFNILUXDLYCSzmkmxm98/05/2025 5:37 AM EST WAXRUFAGATRVvbtmaz25/05/2025 4:00 AM NPXMPHVLXLUMICNcyrvnt66/05/2025 12:00 AM ESTBEDSIDE XVFKTQGWxmjqyk56/04/2025 8:35 PM EST HFPEIQCSVVIBlitlnw52/04/2025 8:00 PM ESTBEDSIDE SFMIXUTLrigsjt60/04/2025 5:02 PM EST GCYWWCDXNCqawldn65/04/2025 1:42 PM EST BEDSIDE LAMXWVDXautyav39/04/2025 11:52 AM EST BEDSIDE FLYAMQQKxaeevs21/04/2025 7:50 AM EST CK ZCWFNPnkcfit53/04/2025 5:39 AM EST XAPMDATQBCPqxmpek82/04/2025 5:39 AM EST NWAZYAEFKLbyevgj75/04/2025 5:39 AM EST BASIC METABOLIC PWZXBDxahuwj05/04/2025 5:39 AM EST CBC WITH AUTO WWQGSMEUVLMDUybdfqi19/04/2025 5:39 AM EST FBJGYPXUWHDDexqubp29/04/2025 4:00 AM TBFWGXSSPDFSPTCogpfmq44/04/2025 12:00 AM ESTBEDSIDE LWTMVSKLkqfzyz87/03/2025 10:00 PM EST BEDSIDE AUGVJQRHelvsjt50/03/2025 4:14 PM EST IR PERC NEPH TUBE LT + NGRAM + S&KVnyjcej28/03/2025 3:30 PM EST BEDSIDE UURXBJUScqzujw01/03/2025 11:07 AM EST BEDSIDE PKMMRYEUknmhyc03/03/2025 7:20 AM EST CTWJXGLLSXPyuehsu65/03/2025 6:37 AM EST TYISGNGDNMuoycmh12/03/2025 6:37 AM EST BASIC METABOLIC TMJZTXbqsmpr73/09/2024 6:37 AM EST CBC WITH AUTO XHQVOZVBFHUEVvrcfcb15/03/2025 6:37 AM EST QTXMNKUDVIDEszigfi69/03/2025 4:00 AM HRIJCDJQMTMQRRJaesltl98/03/2025 12:00 AM ESTBEDSIDE PPDIUQSZsfmlsb66/02/2025 9:30 PM EST KDSGBGZJKUDJyvcbve01/02/2025 8:00 PM ESTBEDSIDE PSPEKGQPcsbclv20/02/2025 4:14 PM EST BEDSIDE ODUXAEFCzuaqqw10/02/2025 12:24 PM EST BLOOD GAS, BQSXZZLjqkbut06/02/2025 11:50 AM EST PROTIME & GQNVKFY9905/15/2025 11:47 AM EST HUZQPVGEEDzardxq53/02/2025 11:47 AM EST XR CHEST 1 BLAyfwuuc23/02/2025 9:35 AM EST BEDSIDE YADHDFPQxkbkve00/02/2025 8:09 AM EST YDSWEQPDBATxctegf78/02/2025 4:51 AM EST SUASHVXLTYnlyprq36/02/2025 4:51 AM EST CBC WITH AUTO DHSFLMTETKTLAaeauhp98/02/2025 4:51 AM EST BASIC METABOLIC EMJNAPohvdmi45/02/2025 4:51 AM EST LIVER AZECXJyxmvqs71/02/2025 4:51 AM EST EUMMOCXOUHYPsthfmx65/02/2025 4:00 AM WFLKUWGOPDXSSZWpeeyjg29/02/2025 12:00 AM EDTBEDSIDE HGPFXKHKasbwbk63/01/2025 9:27 PM EDT XLSHPZOEBZBSothxdy45/01/2025 8:00 PM EDTBEDSIDE ZSTBRETPvxkwot96/01/2025 4:45 PM EDT XLAOXVGEBUITsdrlhd13/01/2025 4:00 PM JSWRQGUBQRCHEJFyypfqp72/01/2025 12:00 PM EDTBEDSIDE PYQKDNFSenihbh26/01/2025 12:00 PM EDT BLOOD STFLDDBLGLH96/01/2025 9:52 AM EDT BLOOD RYKKLMMRLJG15/01/2025 9:52 AM EDT GEFHVEFYYXVMbhpvwy25/01/2025 8:00 AM EDTBEDSIDE DPHXGEJHcsrsxx94/01/2025 7:51 AM EDT CK EUIGMZzancsl40/01/2025 5:19 AM EDT B-TYPE NATRIURETIC PEPTIDEAdd-On05/14/2025 5:19 AM EDT IONIZED LEZXAMQDacdctb06/01/2025 5:19 AM EDT LSNLKMNWXPCcysodw00/01/2025 5:19 AM EDT JWNTOQTZTOclaieo83/01/2025 5:19 AM EDT CBC WITH AUTO KOBRYYPJHYEEVbbrmbm34/01/2025 5:19 AM EDT BASIC METABOLIC BHCCRTasfmdz64/01/2025 5:19 AM EDT LIVER DQQKXRtsqoye10/01/2025 5:19 AM EDT XEQRWQXSLPWJfhgwlg70/01/2025 4:00 AM QXHSNIWWFMFJZUPlbuxku92/01/2025 12:00 AM EDTBEDSIDE KBSGMLBUyhmjed59/31/2025 9:20 PM EDT ZJWQOGQQDOIEucmriy52/31/2025 8:00 PM EDTBEDSIDE KHIBXZWQytvpxo65/31/2025 4:12 PM EDT JTULJZPZVZEYnblgur06/31/2025 4:00 PM EDTBLOOD GAS, CERCIVVSOjsolpo57/31/2025 3:43 PM EDT BEDSIDE FFPKZIZLcsajol81/31/2025 12:[address] BRAIN WO OJYYMGAH72/31/2025 10:42 AM EDT EXTRA TUBES LAVENDER TOP ON WFBUqxcjas65/31/2025 9:01 AM EDT CBC WITH AUTO HKNGJNNBFOXGGdovrdj38/31/2025 9:01 AM EDT BASIC METABOLIC PXKRCUzbvnvq38/31/2025 9:01 AM EDT EXTRA XPVAZUgjczwe52/31/2025 9:01 AM EDT BEDSIDE EHQDPLPMqqfvib61/31/2025 8:59 AM EDT HBWDZZDNSAJNkrhnbc26/31/2025 8:00 AM EDTBEDSIDE OYLWQGBBklqrrb41/31/2025 7:32 AM EDT LIVER JEWLXRlmucaw74/31/2025 5:32 AM EDT LAVENDER OPWHxldahu12/31/2025 5:29 AM EDT RAINBOW OSHGXxgifwy21/31/2025 5:29 AM EDT YNHYRNMNMXXOqbyfju04/31/2025 4:00 AM XOOCCODXYVOJNDHvvlohz79/31/2025 12:00 AM EDTBEDSIDE ZWYQEHOTepazhd40/30/2025 8:16 PM EDT BEDSIDE FGXVFKBWfjjqbo48/30/2025 5:00 PM EDT PPOZTDDOPTWLpquhte71/30/2025 4:00 PM EDTXR CHEST 1 KWXaavhci77/30/2025 12:57 PM EDT BEDSIDE IYPDDWMFsfkozt32/30/2025 12:30 PM EDT WKCXGVLPIPZMmjcqaw49/30/2025 12:00 PM EDTLACTATE W/ MCHHWLLGSP11/30/2025 11:17 AM EDT BEDSIDE VEZCRDUDymmaoj14/30/2025 9:21 AM EDT OVNZZUJMVPXQzqxwvb00/30/2025 8:00 AM EDTNOCTURNAL OXIMETRY STUDYRoutine 05/12/2025 7:45 AM EDTHEMOGLOBIN G6EOlp-Xh27/30/2025 5:54 AM EDT YWACYOZQCMakonzi62/30/2025 5:54 AM EDT CBC WITH AUTO DRXWJAVLWLFJKzwdksd26/30/2025 5:54 AM EDT BASIC METABOLIC OKBHZXxsrygd88/30/2025 5:54 AM EDT PDLYILNVCNJSebtnwm72/30/2025 4:00 AM RBHPRKXUCCSKCSJjbfffp15/30/2025 12:00 AM EDTBEDSIDE EHHMVBGKveatxr48/29/2025 8:56 PM EDT QWSKLIKNBMOYylvkks31/29/2025 8:00 PM EDTBEDSIDE GHPRMFTStlgwtl13/29/2025 5:06 PM EDT BEDSIDE KMXSQCEBjlgojy98/29/2025 2:12 PM EDT BEDSIDE YUIKHZPZufwmea68/29/2025 1:56 PM EDT NSZIWISMAZTGsfagfj86/29/2025 8:00 AM PKDHULBGDXZXCcjrgkv39/29/2025 5:25 AM EDT CBC WITH AUTO YVGTKVSQOXQWOtgvqkw35/29/2025 5:25 AM EDT BASIC METABOLIC FNXINZzwwwoc41/29/2025 5:25 AM EDT ECHO COMPLETE W FYTEFTQLDrxbfsy66/28/2025 9:42 AM EDT BLOOD GAS, BJRIURCYNmoqxjo09/28/2025 9:09 AM EDT VASC VENOUS DUPLEX LOWER UTRCMQCAUBvuhfcb36/28/2025 9:02 AM EDT LBBASPPGCCtkiewh90/28/2025 5:48 AM EDT CBC WITH AUTO GGMMLHBQHWTCIasshxh44/28/2025 5:48 AM EDT BASIC METABOLIC SDQLWQdealom66/28/2025 5:48 AM EDT JIMVJTVZOLJBdspzmd92/28/2025 4:01 AM SWPGEPOULZVSLNHxnwzjf43/28/2025 12:00 AM EDTURINE CREATININE,VSDBVGQxajbeu47/27/2025 11:14 PM EDT PROTEIN CREAT PETXBGfrkcyi07/27/2025 11:14 PM EDT XEQWVGNPXAVlduvyx73/27/2025 11:14 PM EDT SODIUM, URINE, GOPAKEXwrzhkt94/27/2025 11:14 PM EDT URINE CULTURESTAT Add-on05/09/2025 11:14 PM EDT BLOOD GAS, HHLHZPXfcvwpt69/27/2025 3:14 PM EDT CYTOPLASMIC NEUTROPHILIC AB (ANCA), VGzdtvfg95/27/2025 11:53 AM EDT FOLATEAdd-On05/09/2025 11:52 AM EDT VITAMIN M59Hae-Bf91/27/2025 11:52 AM EDT FERRITINAdd-On05/09/2025 11:52 AM EDT IRON AND TIBCAdd-On05/09/2025 11:52 AM EDT VIVEK SCREEN W/ REFLEXSTAT Add-on05/09/2025 11:52 AM EDT CK TOTALAdd-On05/09/2025 11:52 AM EDT GLOMERULAR BASEMENT MEMBRANE IGG DDCzkrpcx96/27/2025 11:52 AM EDT PROTEINASE 3 AB IX4YGBW0205/09/2025 11:52 AM EDT MYELOPEROXIDASE MGPMYY11 11:52 AM EDT FREE LIGHT LAPXUDAzdeett60/27/2025 11:52 AM EDT COMPLEMENT PROFILE (C3 AND C4)Onxuqtz4105/09/2025 11:52 AM EDT PROTEIN ELECTROPHORESIS, YXTCFXdkyhhb78/27/2025 11:52 AM EDT IMMVLGTCMHNGthfyso14/27/2025 8:00 AM EDTRHEUMATOID FACTORAdd-On05/09/2025 5:56 AM EDT DOUBLE STRANDED DNA ABAdd-On05/09/2025 5:56 AM EDT VIVEK SCREEN W/ REFLEXAdd-On05/09/2025 5:56 AM EDT URIC ACIDAdd-On05/09/2025 5:56 AM EDT CBC WITH AUTO QQDKLNZIVOIKHrhheer59/27/2025 5:56 AM EDT COMPREHENSIVE METABOLIC FVVOEYawkclh75/27/2025 5:56 AM EDT CJKUINXJDIZJicqnnk74/27/2025 4:00 AM EVBFTPXKLCRZTBJytockx13/27/2025 12:00 AM EDTBEDSIDE NQEDKWHSrzeypw29/26/2025 9:36 PM EDT WJMGHBRKHFGMahwbwj77/26/2025 8:40 PM DJEJZVDOOZEFPNYkoizke84/26/2025 8:40 PM EDT TABJMQJEGXTDtrchvs63/26/2025 8:40 PM JUTISVCFUTFMXKCrttxza84/26/2025 8:40 PM EDT KXPTXAFAKBGLkgckyh27/26/2025 8:40 PM PMXLVRXSRZVTYMOvvwiaa15/26/2025 8:40 PM EDT PULSE OXIMETRY, ACXQIrsuuso91/26/2025 8:30 PM EDTXR CHEST 1 CQEgdnezc47/26/2025 4:[address] ABDOMEN AND PELVIS IBTLNhvxmjy49/26/2025 11:[address] ABDOMEN AND PELVIS JDBPXhpuudk97/20/2025 2:[address] BRAIN ITDWTvnzouj20/20/2025 1:[address] CHEST QPZNTvlhaoz78/20/2025 1:00 PM EDT Pain XR CHEST 1 IOIymzdsn40/20/2025 10:20 AM EDT Pain from Last 3 Months Results * (ABNORMAL) Bedside Glucose *Place/Obtain serum glucose if >500 per glucometer. (05/20/2025 8:47 AM EST) Only the most recent of40 resultswithin the time period is included. ComponentValueRef RangeTest MethodAnalysis TimePerformed AtPathologist Signature Bedside Glucose (POC)161(H)65 - 99 mg/dL05/20/2025 8:53 AM [facility] LABORATORYSpecimen (Source)Anatomical Location / LateralityCollection Method / VolumeCollection TimeReceived Timearterial/pwphpyiew05/07/2025 8:47 AM EST 05/20/2025 8:53 AM EST Narrative Authorizing ProviderResult TypeResult StatusTaylor Amada Al MDPOINT OF CARE TEST ORDERABLESFinal ResultPerforming OrganizationAddressCity/State/ZIP Code Phone Number [facility] [address] [place] [address], * (ABNORMAL) CBC auto differential (05/20/2025 5:44 AM EST) Only the most recent of12 resultswithin the time period is included. ComponentValueRef RangeTest MethodAnalysis TimePerformed AtPathologist Signature WBC8.64 - 11 X10^9/L107/20/2024 6:26 AM [facility] LABORATORYRBC Count3.04(L)3.8 - 5.2 X10^12/L107/20/2024 6:26 AM [facility] LABORATORYHemoglobin9.6(L)11.7 - 15.5 g/dL05/20/2025 6:26 AM [facility] BXSZYJLSAOKcabamzuye85.8(L)35 - 47 %05/20/2025 6:26 AM [facility] CTYDUEAXKQMPM4393 - 100 fL05/20/2025 6:26 AM [facility] SXSYPMPVBEYLL46.627 - 34 pg05/20/2025 6:26 AM [facility] INWJHNSRFCREZB64.332 - 36 g/dL05/20/2025 6:26 AM [facility] QBWTRGTOIEWAB09.3(H)11.5 - 15 %05/20/2025 6:26 AM [facility] LABORATORYPlatelet Npswg572654 - 450 X10^9/L107/20/2024 6:26 AM [facility] LABORATORYMPV9.57 - 12 fL05/20/2025 6:26 AM [facility]ORYNeutrophils %62.5%05/20/2025 6:26 AM [facility]ORYLymphocytes %22.3%05/20/2025 6:26 AM [facility]ORYMonocytes %9.8%05/20/2025 6:26 AM [facility] [...] AM [facility] LABORATORYDifferential TypeAUTOMATED LTIGTPFVHQSK27/07/2025 6:26 AM [facility] LABORATORYSpecimen (Source)Anatomical Location / LateralityCollection Method / VolumeCollection TimeReceived TimeBloodVenous blood / UnknownVenipuncture / Pyqhblz7405/20/2025 5:44 AM EST05/20/2025 6:08 AM EST Narrative Authorizing ProviderResult TypeResult StatusAmhossein Drummond MDLAB BLOOD ORDERABLES Final ResultPerforming OrganizationAddressCity/State/ZIP CodePhone Number [facility] [address] [place] [address], * Phosphorus (05/20/2025 5:44 AM EST) Only the most recent of7 resultswithin the time period is included. ComponentValueRef RangeTest MethodAnalysis TimePerformed AtPathologist Signature PHOSPHORUS4.62.4 - 4.9 mg/dL05/20/2025 9:38 AM [facility] LABORATORYSpecimen (Source)Anatomical Location / LateralityCollection Method / VolumeCollection TimeReceived TimeBloodVenous blood / UnknownVenipuncture / Whonkrv3105/20/2025 5:44 AM EST05/20/2025 9:23 AM EST Narrative Authorizing ProviderResult TypeResult StatusRamy Lee BARRY BLOOD ORDERABLES Final ResultPerforming OrganizationAddressCity/State/ZIP CodePhone Number [facility] [address] [place] [address], * Magnesium (05/20/2025 5:44 AM EST) Only the most recent of10 resultswithin the time period is included. ComponentValueRef RangeTest MethodAnalysis TimePerformed AtPathologist Signature MAGNESIUM2.61.8 - 2.6 mg/dL05/20/2025 9:38 AM [facility] LABORATORYSpecimen (Source)Anatomical Location / LateralityCollection Method / VolumeCollection TimeReceived TimeBloodVenous blood / UnknownVenipuncture / Dshuuda0905/20/2025 5:44 AM EST05/20/2025 9:23 AM EST Narrative Authorizing ProviderResult TypeResult StatusRamzulema BARRY BLOOD ORDERABLES Final ResultPerforming OrganizationAddressCity/State/ZIP CodePhone Number [facility] [address] [place] [address], * (ABNORMAL) Basic Metabolic Panel (05/20/2025 5:44 AM EST) Only the most recent of11 resultswithin the time period is included. ComponentValueRef RangeTest MethodAnalysis TimePerformed AtPathologist Signature HIROBI438008 - 146 mmol/L107/20/2024 9:38 AM [facility] LABORATORYPOTASSIUM3.83.5 - 5.0 mmol/L107/20/2024 9:38 AM [facility] WOEFRBMGCTKUAWFCUL29(L)98 - 109 mmol/L107/20/2024 9:38 AM [facility] LABORATORYCARBON XHFOTXI2569 - 32 mmol/L107/20/2024 9:38 AM EST [facility] LABORATORYANION ADS728 - 15 mmol/L107/20/2024 9:38 AM [facility] LABORATORYBLOOD UREA THGGFQVK88(H)5 - 27 mg/dL 05/20/2025 9:38 AM [facility] LABORATORYCREATININE1.59(H)0.40 - 1.00 mg/dL05/20/2025 9:38 AM [facility] LABORATORYComment: METHOD TRACEABLE TO IDMS ZZYDDDNUXNJUVPW072(H)65 - 99 mg/dL05/20/2025 9:38 AM [facility] LABORATORYCALCIUM9.48.5 - 10.5 mg/dL05/20/2025 9:38 AM [facility] LABORATORYEGFR Non-Race Sthhodkrt05(L)>=60 ml/min/1.73sq.m107/20/2024 9:38 AM [facility] LABORATORYComment: Reported eGFR is based on the CKD-EPI 2020 equation that does not use a race coefficient. Specimen (Source)Anatomical Location / LateralityCollection Method / Volume Collection TimeReceived TimeBloodVenous blood / UnknownVenipuncture / Unknown 05/20/2025 5:44 AM EST05/20/2025 9:23 AM EST Narrative Authorizing ProviderResult TypeResult StatusRamy Lee BARRY BLOOD ORDERABLES Final ResultPerforming OrganizationAddressCity/State/ZIP CodePhone Number [facility] [address] [place] [address], [place] [phone] * X-ray abdomen ap 1 view (05/19/2025 [...] EST Narrative Authorizing ProviderResult TypeResult StatusAlexandra Damon VAT TENDER-CNPLAB BLOOD ORDERABLESFinal ResultPerforming OrganizationAddressCity/State/ZIP CodePhone Number [facility] [address] [place] [address], * (ABNORMAL) Blood Gas, Arterial (05/19/2025 12:12 AM EST) Only the most recent of3 resultswithin the time period is included. ComponentValueRef RangeTest MethodAnalysis TimePerformed AtPathologist Signature Sample merlZUVZMDPI37/06/2025 12:14 AM [facility] LABORATORYpH, Arterial 7.3867.350 - 7.3838605/19/2025 12:14 AM [facility] LABORATORYpCO2, Umhuaxwu13.9(H)35.0 - 45.0 mmHg05/19/2025 12:14 AM [facility] PO2, Miplnfrr09(L)80 - 100 mmHg05/19/2025 12:14 AM [facility] Base, Eqnimo58.0(H)0.0 - 2.0 mmol/L107/19/2024 12:14 AM [facility] LABORATORYHCO3, Ywdrhoaa06.9(H)22.0 - 26.0 mmol/L107/19/2024 12:14 AM [facility]%O2 Saturation, Behmgdai76.0(L)>90.0 %05/19/2025 12:14 AM [facility] LABORATORYAllen's testN/A107/19/2024 12:14 AM [facility] MDICOEHTACHUL162%05/19/2025 12:14 AM [facility] LABORATORYSample siteL Brach05/19/2025 12:14 AM [facility] LABORATORYInsp. O2 conc.28% 05/19/2025 12:14 AM [facility] LABORATORYSource Of OxygenRoom Air 05/19/2025 12:14 AM [facility] LABORATORYSpecimen (Source)Anatomical Location / LateralityCollection Method / VolumeCollection TimeReceived Time arterial (Blood, Arterial)05/19/2025 12:12 AM EST05/19/2025 12:14 AM EST Narrative Authorizing ProviderResult TypeResult StatusTaylor Amada BARRY BLOOD ORDERABLESFinal ResultPerforming OrganizationAddressCity/State/ZIP CodePhone Number [facility] [address] [place] [address], * X-ray chest 1 view (05/18/2025 4:16 [...] Method / VolumeCollection TimeReceived TimeBloodVenous blood / Slphrfv7705/18/2025 1:36 PM EST05/18/2025 1:46 PM EST Narrative Authorizing ProviderResult TypeResult StatusTaylalbina Al MDLAB BLOOD ORDERABLESFinal ResultPerforming OrganizationAddressCity/State/ZIP CodePhone Number [facility] [address] [place] [address], [place] [phone] * IR percutaneous placement nephrostomy tube left (05/16/2025 3:30 PM EST) Anatomical RegionLateralityModalityIRLeftX-Ray AngiographySpecimen (Source) Anatomical Location / LateralityCollection Method / VolumeCollection Time Received Time Narrative 05/16/2025 3:47 PM EST 1. Ultrasound guided puncture of left renal collecting system. 2. Left Antegrade nephrostogram. 3. Fluoroscopic guided placement of left 8 Montenegrin percutaneous nephrostomy catheter. CLINICAL INDICATION: Left hydronephrosis [...] direct ultrasound needle visualization, and an ultrasound inbound sales representative image was obtained and saved [...] tract was further dilated, then an 8 Montenegrin percutaneous nephrostomy catheter was introduced over the wire and formedin the renal pelvis during real-time fluoroscopic guidance. A fluoroscopic spot image was obtained and saved in PACS. The catheter was sutured to the skin with 2.0 Prolene sutures and connected to dependent drainage Reference Air Kerma = 15.4 mGy Fluoroscopy time: 1.8 minutes Saved images: 1 Estimated blood loss: [employer] Plant Engineer: None. Complications: None. IMPRESSION: 1. ??Successful fluoroscopic guided placement of left 8 Montenegrin percutaneous nephrostomy catheter connected to dependent drainage. [...] ComponentValueRef RangeTest MethodAnalysis TimePerformed AtPathologist Signature Sample qlcoOWQJOL31/02/2025 11:53 AM [facility] LABORATORYpH, Venous 7.319(L)7.320 - 7.6542305/15/2025 11:53 AM [facility] [facility]OR[facility]ORYpCO2, Mhouoc97.1(H)35.0 - 50.0 mmHg05/15/2025 11:53 AM [facility] pO2, Sirjin59(H)30 - 50 mmHg05/15/2025 11:53 AM [facility] Base, Qofodf31.0(H)0.0 - 2.0 mmol/L107/15/2024 11:53 AM [facility] LABORATORYHCO3, Tbbebq74.2(H)20.0 - 24.0 mmol/L107/15/2024 11:53 AM [facility]%O2 Saturation, Zhpcuk36.0%05/15/2025 11:53 AM [facility] LABORATORYAllen's testN/A107/15/2024 11:53 AM [facility] SHGVEWGQBTXMQ4436%05/15/2025 11:53 AM [facility] LABORATORYSample site N/A107/15/2024 11:53 AM [facility] LABORATORYInsp. O2 conc.28%05/15/2025 11:53 AM [facility] LABORATORYSource Of WhgpduWV13/02/2025 11:53 AM [facility] LABORATORYSpecimen (Source)Anatomical Location / Laterality Collection Method / VolumeCollection TimeReceived TimevenousVenous blood / Twzzikg8205/15/2025 11:50 AM EST05/15/2025 11:53 AM EST Narrative Authorizing ProviderResult TypeResult StatusGuy BARRY BLOOD ORDERABLES Final ResultPerforming OrganizationAddressCity/State/ZIP CodePhone Number [facility] [address] [place] [address], [place] * Protime & INR (05/15/2025 11:47 AM EST)ComponentValueRef RangeTest Method Analysis TimePerformed AtPathologist RufvcbdaiOAGOXBE47.39.8 - 13.2 sec 05/15/2025 12:31 PM [facility] LABORATORYINR1.00.9 - 1.2 05/15/2025 12:31 PM [facility] LABORATORYSpecimen (Source) Anatomical Location / LateralityCollection Method / VolumeCollection Time Received TimeBloodVenous blood / UnknownVenipuncture / Btwbqds5905/15/2025 11:47 AM EST05/15/2025 12:11 PM EST Narrative Authorizing ProviderResult TypeResult StatusSiddshyanne BARRY BLOOD ORDERABLESFinal ResultPerforming OrganizationAddressCity/State/ZIP CodePhone Number [facility] [address] [place] [address], [place] [phone] * Liver panel (05/15/2025 4:51 AM EST) Only the most recent of3 resultswithin the time period is included. ComponentValueRef RangeTest MethodAnalysis TimePerformed AtPathologist Signature TOTAL PROTEIN6.46.0 - 8.0 g/dL05/15/2025 6:19 AM [facility] LABORATORYALBUMIN3.33.2 - 5.3 g/dL05/15/2025 6:19 AM [facility] LABORATORYBILIRUBIN,TOTAL0.50.3 - 1.2 mg/dL05/15/2025 6:19 AM [facility] LABORATORYALKALINE PNMQPIYHERS9121 - 130 U/L107/15/2024 6:19 AM [facility] MDFFIJVTMPLWX06<=41 U/L107/15/2024 6:19 AM [facility] LABORATORYALT3<=31 U/L107/15/2024 6:19 AM [facility] LABORATORYBILIRUBIN,DIRECT0.1<=0.4 mg/dL05/15/2025 6:19 AM [facility] LABORATORYSpecimen (Source)Anatomical Location / Laterality Collection Method / VolumeCollection TimeReceived TimeBloodVenous blood / UnknownVenipuncture / Qinnnnt7305/15/2025 4:51 AM EST05/15/2025 5:39 AM EST Narrative Authorizing ProviderResult TypeResult StatusSwapna BARRY BLOOD ORDERABLESFinal ResultPerforming OrganizationAddressCity/State/ZIP CodePhone Number [facility] [place] [address], * Blood culture #2 (05/14/2025 9:52 AM EDT) Only the most recent of2 resultswithin the time period is included. ComponentValueRef RangeTest MethodAnalysis TimePerformed AtPathologist Signature CULTURE RESULTSNO GROWTH 5 DAYS05/19/2025 10:01 AM [facility] LABORATORYSpecimen (Source)Anatomical Location / LateralityCollection Method / VolumeCollection TimeReceived TimeBloodVenous blood / UnknownVenipuncture / Uddvnbo9405/14/2025 9:52 AM EDT107/14/2024 10:28 AM EDT Narrative [facility] - 05/19/2025 10:01 AM EST Suboptimal volume of blood collected, Results may be affected. Authorizing ProviderResult TypeResult StatusTerri Ramos APRN-CNPMICROBIOLOGY - GENERAL ORDERABLESFinal ResultPerforming OrganizationAddressCity/State/ZIP CodePhone Number [facility] [place] [address], * (ABNORMAL) B-type natriuretic peptide (05/14/2025 5:19 AM EDT)ComponentValue Ref RangeTest MethodAnalysis TimePerformed AtPathologist SignatureBNP1,173(H) <=100 pg/mL05/14/2025 9:11 AM [facility] LABORATORYSpecimen (Source)Anatomical Location / LateralityCollection Method / VolumeCollection TimeReceived TimeBloodVenous blood / UnknownVenipuncture / Lwyozov3105/14/2025 5:19 AM EDT107/14/2024 6:14 AM EDT Narrative Authorizing ProviderResult TypeResult StatusVidhit Lenora DOLAB BLOOD ORDERABLES Final ResultPerforming OrganizationAddressCity/State/ZIP CodePhone Number [facility] [address] [place] [address], * (ABNORMAL) Ionized calcium (05/14/2025 5:19 AM EDT)ComponentValueRef RangeTest MethodAnalysis TimePerformed AtPathologist SignatureIONIZED CALCIUM - ICAN4.4 (L)4.5 - 5.3 mg/dL05/14/2025 8:05 AM [facility] Specimen (Source)Anatomical Location / LateralityCollection Method / Volume Collection TimeReceived TimeBloodVenous blood / UnknownVenipuncture / Unknown 05/14/2025 5:19 AM EDT107/14/2024 6:17 AM EDT Narrative Authorizing ProviderResult TypeResult StatusRamy A Mina MDLAB BLOOD ORDERABLES Final ResultPerforming OrganizationAddressCity/State/ZIP CodePhone Number [facility] [address] [place] [address], * CT brain without contrast (05/13/2025 10:42 [...] AtPathologist SignatureExtra TubeAuto Resulted 05/13/2025 10:02 AM [facility] LABORATORYSpecimen (Source) Anatomical Location / LateralityCollection Method / VolumeCollection Time Received TimeBloodVenous blood / UnknownVenipuncture / Rudiums8005/13/2025 9:01 AM EDT1 9:11 AM EDT Narrative Authorizing ProviderResult TypeResult StatusAmhossein Drummond MDLAB BLOOD ORDERABLES Final ResultPerforming OrganizationAddressCity/State/ZIP CodePhone Number [facility] [address] [place] [address], [place] [phone] * Lavender Top (05/13/2025 5:29 AM EDT)ComponentValueRef RangeTest Method Analysis TimePerformed AtPathologist SignatureExtra TubeAuto Resulted 05/13/2025 7:01 AM [facility] LABORATORYSpecimen (Source) Anatomical Location / LateralityCollection Method / VolumeCollection Time Received TimeBloodVenous blood / Kisqwts3405/13/2025 5:29 AM EDT1 5:53 AM EDT Narrative Authorizing ProviderResult TypeResult StatusGuy BARRY BLOOD ORDERABLES Final ResultPerforming OrganizationAddressCity/State/ZIP CodePhone Number [facility] [address] [place] [address], * Lactate w/ Reflex (05/12/2025 11:17 AM EDT)ComponentValueRef RangeTest Method Analysis TimePerformed AtPathologist SignatureLACTATE W/REFLEX1.60.4 - 2.0 mmol/L1 12:03 PM [facility] LABORATORYSpecimen (Source)Anatomical Location / LateralityCollection Method / VolumeCollection TimeReceived TimeBloodVenous blood / UnknownVenipuncture / Kkhzwjs6505/12/2025 11:17 AM EDT1 11:29 AM EDT Narrative [facility] - 05/12/2025 12:03 PM EDT Result did not trigger repeat Lactate, re-order if needed. Authorizing ProviderResult TypeResult StatusGuy BARRY BLOOD ORDERABLES Final ResultPerforming OrganizationAddressCity/State/ZIP CodePhone Number [facility] [address] [place] [address], * Nocturnal oximetry study (05/12/2025 7:45 AM EDT) Narrative Authorizing ProviderResult TypeResult StatusMoaldo Couch [facility] ORDERABLESEdited Result - Final * (ABNORMAL) Hemoglobin A1c (05/12/2025 5:54 AM EDT)ComponentValueRef RangeTest MethodAnalysis TimePerformed AtPathologist SignatureHEMOGLOBIN A1C6.3(H)4.4 - 5.6 %05/12/2025 12:00 PM [facility] LABORATORYComment: ?ADA Guidelines ?Result ?HgbA1c ? Normal : ? less than 5.7 % ? Prediabetes : ?5.7 % ??to 6.4 % Diabetes : > 6.4 % ?Use with caution in patients with abnormal hemoglobin variants as ??the half-life of red blood cells and in vivo glycation rates are ??affected. EST. AVERAGE NZOUIRZ819dv/dL05/12/2025 12:00 PM [facility] LABORATORYSpecimen (Source)Anatomical Location / LateralityCollection Method / VolumeCollection TimeReceived TimeBloodVenous blood / UnknownVenipuncture / Kkmpgmv4905/12/2025 5:54 AM EDT1 5:54 AM EDT Narrative Authorizing ProviderResult TypeResult StatusAmhossein Drummond MDLAB BLOOD ORDERABLES Final ResultPerforming OrganizationAddressCity/State/ZIP CodePhone Number [facility] [address] [place] [address], * Echo complete W/ contrast (05/10/2025 9:42 AM EDT)ComponentValueRef RangeTest MethodAnalysis TimePerformed AtPathologist SignatureLVOT stroke jfykne61.53ml FMJANBUTL6290 - 44 %XCELERALVIDd4.704.07 - 5.65 cmXCELERALVIDs3.302.41 - 3.65 cmXCELERAIVS1.400.6 - 1.1 cmXCELERAPW0.900.6 - 1.1 cmXCELERALVOT diameter2.10 cmXCELERATDI6.96cm/sXCELERAMV TDI E' (medial)3.48cm/sXCELERALA Volume Index 31.6mL/p4HXKWHKSO/A ratio1.17XCELERAE wave deceleration myvy327.00msecXCELERA MV Peak E Vig111.00cm/sXCELERAMV Peak A Glu804.00cm/sXCELERALA size4.50cm XCELERAAortic root3.80cmXCELERALA yggqqf53.22go9EEZSZAAZC diastolic dimension (basal)29.5dnHAOHRDXDGBJQ1.06cmXCELERAAV peak jub402.00cm/sXCELERALVOT peak vel0.87m/sXCELERAAV VTI44.60cmXCELERALVOT peak VTI16.90cmXCELERAAV mean gradient7.00mmHgXCELERAAV peak wzvnyira43.02mmHgXCELERAAV valve area1.31 XCELERAValve area - Index0.7XCELERAMV mean gradient5.00mmHgXCELERAMV peak gradient9.24mmHgXCELERAMV VTI38.10cmXCELERAMV valve area by continuity eq1.54 XCELERAMV pressure 1/2 time40.00msXCELERAMV valve area p 1/2 method5.50cm2 XCELERATR Peak Vel3.3m/sXCELERATR peak rvwjxjbo07.82mmHgXCELERAPV peak gradient2.23mmHgXCELERALV ESV A2C56.70mLXCELERALV ESV A4C52.90mLXCELERAMitral Valve Max Velocity1.52cm/sXCELERALV RWT 2D38.30XCELERAAV Velocity Ratio0.38 XCELERALeft Ventricle Mbox226.761319432881325nYDVBCYDNivqfniicisuxfqg Septum Diastolic Thickness by 6T14rhXWGUPKSYml. RA pmdnythn2hkFfZOIDQFSLB Peak Systolic Exgonnlc10zfQiDUWVVMPJZ area11.5ay2GPPWVMBZZANYV1.84XCELERAZLVIDD -0.20XCELERAEnergy loss index19.61XCELERAAnatomical RegionLateralityModality ChestN/AUltrasoundSpecimen (Source)Anatomical Location [...] hypokinetic. Authorizing ProviderResult TypeResult StatusRamy Lee Mina [facility] ECHO ORDERABLES Final Result [...] SignatureURINE PROTEIN, RANDOM (MG/L)1,090(H)<120 mg/L1 12:04 AM [facility] LABORATORYURINE CREATININE,RDM50.82mg/dL05/10/2025 12:04 AM [facility] LABORATORYU/PRO/FOOD TECHNOLOGIST RATIO CALC2.14(H)<=0. 12:04 AM [facility] LABORATORYSpecimen (Source)Anatomical Location / LateralityCollection Method / VolumeCollection TimeReceived TimeUrine (Urine, Indwelling Catheter)05/09/2025 11:14 PM EDT1 11:28 PM EDT Narrative [facility] - 05/10/2025 12:04 AM EDT Nephrotic Syndrome is associated with ratios >3.5 Authorizing ProviderResult TypeResult StatusVibenjamin Lenora DOURINE ORDERABLESFinal ResultPerforming OrganizationAddressCity/State/ZIP CodePhone Number [facility] [address] [place] [id number], * Urine Creatinine,random (05/09/2025 11:14 PM EDT)ComponentValueRef RangeTest MethodAnalysis TimePerformed AtPathologist SignatureURINE CREATININE,RDM50.82 mg/dL05/10/2025 12:04 AM [facility] LABORATORYSpecimen (Source)Anatomical Location / LateralityCollection Method / VolumeCollection TimeReceived TimeUrine (Urine, Indwelling Catheter)05/09/2025 11:14 PM EDT 05/09/2025 11:28 PM EDT Narrative Authorizing ProviderResult TypeResult StatusGustavo Enriquez MDURINE ORDERABLESFinal ResultPerforming OrganizationAddressCity/State/ZIP CodePhone Number [facility] [address] [place] [address], * Sodium, urine, random (05/09/2025 11:14 PM EDT)ComponentValueRef RangeTest MethodAnalysis TimePerformed AtPathologist SignatureURINE SODIUM,HIZUTZ16 mmol/L1 12:55 AM [facility] LABORATORYSpecimen (Source)Anatomical Location / LateralityCollection Method / VolumeCollection TimeReceived TimeUrine (Urine, Indwelling Catheter)05/09/2025 11:14 PM EDT 05/09/2025 11:28 PM EDT Narrative Authorizing ProviderResult TypeResult StatusVidhit Lenora DOURINE ORDERABLESFinal ResultPerforming OrganizationAddressCity/State/ZIP CodePhone Number [facility] [address] [place] [address], * (ABNORMAL) Urinalysis (05/09/2025 11:14 PM EDT)ComponentValueRef RangeTest MethodAnalysis TimePerformed AtPathologist SignatureCOLORYellowYellow 05/10/2025 12:15 AM [facility] LABORATORYTURBIDITYHazy(A) Clear05/10/2025 12:15 AM [facility] LABORATORYSPECIFIC GRAVITY1.0131.003 - 1.0171505/10/2025 12:15 AM [facility] SNYCEATECSZKLPLWBAybnklttKfxnsuip29/28/2025 12:15 AM [facility] LABORATORYPH,URINE6.05.0 - 8.510 12:15 AM [facility] LABORATORYLEUKOCYTE ESTERASELarge(A)Zevotmuc15/28/2025 12:15 AM EDT [facility] AKDHLPPVUISVNHRNB69 mg/dL(A)Xgenbkhq20/28/2025 12:15 AM [facility] LABORATORYKETONES (URINE)NegativeNegative 05/10/2025 12:15 AM [facility] LABORATORYUROBILINOGEN<1.1 eu/dL<1.1 eu/dL05/10/2025 12:15 AM [facility] BILIRUBIN (URINE)JqnlrvopCulsspyo02/28/2025 12:15 AM [facility] LABORATORYBLOOD/UYZEytsavurBgaumnue60/28/2025 12:15 AM [facility] LABORATORYHYALINE CASTS6(H)0 - 12:15 AM EDT [facility] LABORATORYMUCOUSPresent(A)None05/10/2025 12:15 AM EDT [facility] LABORATORYR.B.CELLS20 - 12:15 AM EDT [facility] LABORATORYSQUAMOUS YWFINCWWGX43 - 12:15 AM [facility] LABORATORYW.B.CELLS75(H)0 - 12:15 AM [facility] LABORATORYGLUCOSE (URINE)NegativeNegative 05/10/2025 12:15 AM [facility] LABORATORYSpecimen (Source) Anatomical Location / LateralityCollection Method / VolumeCollection Time Received TimeUrine (Urine, Indwelling Catheter)05/09/2025 11:14 PM EDT 05/09/2025 11:28 PM EDT Narrative Authorizing ProviderResult TypeResult StatusVidhit Lenora DOURINE ORDERABLESFinal ResultPerforming OrganizationAddressCity/State/ZIP CodePhone Number [facility] [address] [place] [address], * (ABNORMAL) Urine Culture Urine, Indwelling Catheter (05/09/2025 11:14 PM EDT) ComponentValueRef RangeTest MethodAnalysis TimePerformed AtPathologist SignatureCULTURE RESULTS>100,000 CFU/mL Maritza glabrata(A)05/18/2025 9:40 AM [facility] LABORATORYCULTURE JGRHUAV48,000-50,000 CFU/mL Vancomycin resistant Enterococcus faecium(A)05/18/2025 9:40 AM [facility] LABORATORYComment: Ampicillin or Amoxicillin is the drug of choice for uncomplicated cystitis caused by enterococci. Cephalosporins are inappropriate. Specimen (Source)Anatomical Location / LateralityCollection Method / Volume Collection TimeReceived TimeUrine (Urine, Indwelling Catheter)05/09/2025 11:14 PM EDT1 11:28 PM EDT Narrative [facility] - 05/18/2025 9:40 AM EST [...] Edited Result - FinalPerforming OrganizationAddressCity/State/ZIP CodePhone Number [facility] [address] [place] [address], * Cytoplasmic Neutrophilic Ab (ANCA), S (05/09/2025 11:53 AM EDT)ComponentValue Ref RangeTest MethodAnalysis TimePerformed AtPathologist SignatureC-ANCA QgwwhtqlOqnsdflv16/28/2025 2:51 PM [facility]AD[facility] LABORATORIESP-ANCANegative Vudjorvb41/28/2025 2:51 PM [facility] LABORATORIESComment: Negative for cANCA and pANCA patterns by immunofluorescence. ADDITIONAL INFORMATION This test was developed and its performance characteristics determined by [facility] in a manner consistent with CLIA requirements. This test has not been cleared or approved by the [place].S. Food and Drug Administration. Test Performed by: [facility] - [address] [address] [employer] Operator: Florence Shukla Ph.D.; CLIA# [id number] Specimen (Source)Anatomical Location / LateralityCollection Method / Volume Collection TimeReceived TimeBloodVenous blood / UnknownVenipuncture / Unknown 05/09/2025 11:53 AM EDT1 12:32 PM EDT Narrative Authorizing ProviderResult TypeResult StatusVidhit Lenora DOLAB BLOOD ORDERABLES Final ResultPerforming OrganizationAddressCity/State/ZIP CodePhone Number [facility] [address] [place] [address], [place] * Glomerular basement membrane IgG AB (05/09/2025 11:52 AM EDT)ComponentValueRef RangeTest MethodAnalysis TimePerformed AtPathologist SignatureGBM IGG AB<0.2 <1.0 AI05/09/2025 4:36 PM [facility] LABORATORYSpecimen (Source)Anatomical Location / LateralityCollection Method / VolumeCollection TimeReceived TimeBloodVenous blood / UnknownVenipuncture / Xjimbwq9705/09/2025 11:52 AM EDT1 12:32 PM EDT Narrative Authorizing ProviderResult TypeResult StatusVidhit Lenora DOLAB BLOOD ORDERABLES Final ResultPerforming OrganizationAddressCity/State/ZIP CodePhone Number [facility] [address] [place] [address], * Proteinase 3 AB PR3 (05/09/2025 11:52 AM EDT)ComponentValueRef RangeTest MethodAnalysis TimePerformed AtPathologist SignaturePROTEINASE 3 IGG AB<0.2 <1.0 AI05/09/2025 4:36 PM [facility] LABORATORYSpecimen (Source)Anatomical Location / LateralityCollection Method / VolumeCollection TimeReceived TimeBloodVenous blood / UnknownVenipuncture / Wksuzkj8905/09/2025 11:52 AM EDT1 12:32 PM EDT Narrative Authorizing ProviderResult TypeResult StatusVidhit Lenora DOLAB BLOOD ORDERABLES Final ResultPerforming OrganizationAddressCity/State/ZIP CodePhone Number [facility] [address] [place] [address], * Myeloperoxidase AB (05/09/2025 11:52 AM EDT)ComponentValueRef RangeTest Method Analysis TimePerformed AtPathologist SignatureMYELOPEROXIDASE AB<0.2<1.0 AI 05/09/2025 4:36 PM [facility] LABORATORYSpecimen (Source) Anatomical Location / LateralityCollection Method / VolumeCollection Time Received TimeBloodVenous blood / UnknownVenipuncture / Whklybh0605/09/2025 11:52 AM EDT1 12:32 PM EDT Narrative Authorizing ProviderResult TypeResult StatusVidhit Lenora DOLAB BLOOD ORDERABLES Final ResultPerforming OrganizationAddressCity/State/ZIP CodePhone Number [facility] [address] [place] [address], * (ABNORMAL) Free light chains (05/09/2025 11:52 AM EDT)ComponentValueRef Range Test MethodAnalysis TimePerformed AtPathologist SignatureFREE CJ/LAMBD RATIO 1.540.26 - 1.6505/09/2025 5:17 PM [facility] LABORATORYFREE KAPPA LT CHAINS7.98(H)0.33 - 1.94 mg/dL05/09/2025 5:17 PM [facility] LABORATORYFREE LAMBDA LT CHAINS5.17(H)0.57 - 2.63 mg/dL05/09/2025 5:17 PM [facility] LABORATORYSpecimen (Source)Anatomical Location / LateralityCollection Method / VolumeCollection TimeReceived TimeBloodVenous blood / UnknownVenipuncture / Cvnwydb9105/09/2025 11:52 AM EDT1 12:32 PM EDT Narrative Authorizing ProviderResult TypeResult StatusVidhit Lenora DOLAB BLOOD ORDERABLES Final ResultPerforming OrganizationAddressCity/State/ZIP CodePhone Number [facility] [address] [place] [address], [place] [phone] * Complement profile (C3 AND C4) (05/09/2025 11:52 AM EDT)ComponentValueRef RangeTest MethodAnalysis TimePerformed AtPathologist SignatureCOMPLEMENT C3125 86 - 184 mg/dL05/09/2025 2:23 PM [facility] COMPLEMENT F96147 - 47 mg/dL05/09/2025 2:23 PM [facility] LABORATORYSpecimen (Source)Anatomical Location / LateralityCollection Method / VolumeCollection TimeReceived TimeBloodVenous blood / UnknownVenipuncture / Yusexhy1205/09/2025 11:52 AM EDT1 12:32 PM EDT Narrative Authorizing ProviderResult TypeResult StatusVidhit Lenora DOLAB BLOOD ORDERABLES Final ResultPerforming OrganizationAddressCity/State/ZIP CodePhone Number [facility] [address] [place] [address], [place] [phone] * (ABNORMAL) Iron and TIBC (05/09/2025 11:52 AM EDT)ComponentValueRef RangeTest MethodAnalysis TimePerformed AtPathologist BxqcoolwdCUAD2202 - 170 ug/dL 05/09/2025 3:15 PM [facility] VCGQSJLMABWZHCBDXYXIQ710757 - 336 mg/dL05/09/2025 3:15 PM [facility] LABORATORYIRON BINDING 237(L)250 - 425 ug/dL05/09/2025 3:15 PM [facility] IRON DOXEPBSOMF2396 - 50 % NDCVCFCQNJ19/27/2025 3:15 PM [facility] LABORATORYSpecimen (Source)Anatomical Location / LateralityCollection Method / VolumeCollection TimeReceived TimeBloodVenous blood / Unknown Venipuncture / Smxtrrp1605/09/2025 11:52 AM EDT1 12:32 PM EDT Narrative Authorizing ProviderResult TypeResult StatusRamy Lee BARRY BLOOD ORDERABLES Final ResultPerforming OrganizationAddressCity/State/ZIP CodePhone Number [facility] [address] [place] [address], [place] [phone] * VIVEK Screen w/ Reflex (05/09/2025 11:52 AM EDT) Only the most recent of2 resultswithin the time period is included. ComponentValueRef RangeTest MethodAnalysis TimePerformed AtPathologist Signature VIVEK SCREEN W/CASBXDCazpcsbzWbscqqzd58/27/2025 4:35 PM [facility] LABORATORYSpecimen (Source)Anatomical Location / LateralityCollection Method / VolumeCollection TimeReceived TimeBloodVenous blood / Unknown Venipuncture / Ndnztir0305/09/2025 11:52 AM EDT1 12:32 PM EDT Narrative [facility] - 05/09/2025 4:35 PM EDT Testing performed using multiplex flow immunoassay. Eleven difference antigens associated with systemic autoimmunie diseases (dsDNA, Sm, Sm/MONKEY TRAINER, MONKEY TRAINER, Chromatin, SSA, SSB, Mary-1, Sc170, Ribo P, Centromere B) are included in this sreening tests. Authorizing ProviderResult TypeResult StatusRamy Lee BARRY BLOOD ORDERABLES Final ResultPerforming OrganizationAddressCity/State/ZIP CodePhone Number [facility] [address] [place] [address], * (ABNORMAL) Protein electrophoresis, serum (05/09/2025 11:52 AM EDT)Component ValueRef RangeTest MethodAnalysis TimePerformed AtPathologist SignatureTOTAL PROTEIN5.7(L)6.0 - 8.0 g/dL05/10/2025 12:00 PM [facility] LABORATORYALPHA 1 GLOBULIN0.40.1 - 0.4 g/dL05/10/2025 12:00 PM [facility] LABORATORYALPHA 2 GLOBULIN0.90.4 - 1.1 g/dL05/10/2025 12:00 PM [facility] LABORATORYBETA GLOBULIN0.70.5 - 1.2 g/dL 05/10/2025 12:00 PM [facility] LABORATORYGAMMA GLOBULIN0.80.5 - 1.6 g/dL05/10/2025 12:00 PM [facility] LABORATORYProtein Electrophoresis InterpUnremarkable protein distribution, no monoclonal bands 05/10/2025 12:00 PM [facility] LABORATORYAlbumin2.9(L)3.4 - 5.3 g/dL05/10/2025 12:00 PM [facility] LABORATORYSpecimen (Source)Anatomical Location / LateralityCollection Method / VolumeCollection TimeReceived TimeBloodVenous blood / UnknownVenipuncture / Eoptwdh9005/09/2025 11:52 AM EDT1 12:32 PM EDT Narrative Authorizing ProviderResult TypeResult StatusVidhit Lenora DOLAB BLOOD ORDERABLES Final ResultPerforming OrganizationAddressCity/State/ZIP CodePhone Number [facility] [address] [place] [address], * Folate (05/09/2025 11:52 AM EDT)ComponentValueRef RangeTest MethodAnalysis TimePerformed AtPathologist SignatureFOLIC ACID22.1>5.8 ng/mL05/09/2025 3:13 PM [facility] LABORATORYSpecimen (Source)Anatomical Location / LateralityCollection Method / VolumeCollection TimeReceived TimeBloodVenous blood / UnknownVenipuncture / Ipevxzj9805/09/2025 11:52 AM EDT1 12:32 PM EDT Narrative Authorizing ProviderResult TypeResult StatusRamy Lee BARRY BLOOD ORDERABLES Final ResultPerforming OrganizationAddressCity/State/ZIP CodePhone Number [facility] [address] [place] [address], * Ferritin (05/09/2025 11:52 AM EDT)ComponentValueRef RangeTest MethodAnalysis TimePerformed AtPathologist MwiaomeqgMRAMYOHH73342 - 307 ng/mL05/09/2025 3:10 PM [facility] LABORATORYSpecimen (Source)Anatomical Location / LateralityCollection Method / VolumeCollection TimeReceived TimeBloodVenous blood / UnknownVenipuncture / Widfoyc1705/09/2025 11:52 AM EDT1 12:32 PM EDT Narrative Authorizing ProviderResult TypeResult StatusRamy Lee BARRY BLOOD ORDERABLES Final ResultPerforming OrganizationAddressCity/State/ZIP CodePhone Number [facility] [address] [place] [address], * Vitamin B12 (05/09/2025 11:52 AM EDT)ComponentValueRef RangeTest Method Analysis TimePerformed AtPathologist SignatureVITAMIN [id number] - 914 pg/mL 05/09/2025 3:14 PM [facility] LAB[facility]ATORYSpecimen (Source) Anatomical Location / LateralityCollection Method / VolumeCollection Time Received TimeBloodVenous blood / UnknownVenipuncture / Fsuwkhl1705/09/2025 11:52 AM EDT1 12:32 PM EDT Narrative Authorizing ProviderResult TypeResult StatusRamzulema Enriquez MDLAB BLOOD ORDERABLES Final ResultPerforming OrganizationAddressCity/State/ZIP CodePhone Number [facility] [address] [place] [address], * DNA double-stranded (dsDNA) Abs (05/09/2025 5:56 AM EDT)ComponentValueRef RangeTest MethodAnalysis TimePerformed AtPathologist SignatureDouble Stranded DNA Ab<1<5 IU/ML05/09/2025 1:54 PM [facility] Specimen (Source)Anatomical Location / LateralityCollection Method / Volume Collection TimeReceived TimeBloodVenous blood / UnknownVenipuncture / Unknown 05/09/2025 5:56 AM EDT1 6:09 AM EDT Narrative [facility] - 05/09/2025 1:54 PM EDT Interpretation < 5 Negative 5 - 9 Indeterminate > 9 Positive Authorizing ProviderResult TypeResult StatusVidhit Lenora DOLAB BLOOD ORDERABLES Final ResultPerforming OrganizationAddressCity/State/ZIP CodePhone Number [facility] [address] [place] [address], * Rheumatoid factor (05/09/2025 5:56 AM EDT)ComponentValueRef RangeTest Method Analysis TimePerformed AtPathologist SignatureRHEUMATOID FACTOR<10<20 IU/mL 05/09/2025 12:10 PM [facility]YSpecimen (Source) Anatomical Location / LateralityCollection Method / VolumeCollection Time Received TimeBloodVenous blood / UnknownVenipuncture / Upuddbe5005/09/2025 5:56 AM EDT1 6:09 AM EDT Narrative Authorizing ProviderResult TypeResult StatusVidhit Lenora DOLAB BLOOD ORDERABLES Final ResultPerforming OrganizationAddressCity/State/ZIP CodePhone Number [facility] [address] [place] [address], * Uric acid (05/09/2025 5:56 AM EDT)ComponentValueRef RangeTest MethodAnalysis TimePerformed AtPathologist SignatureURIC ACID6.42.6 - 7.2 mg/dL05/09/2025 12:10 PM [facility]YSpecimen (Source)Anatomical Location / LateralityCollection Method / VolumeCollection TimeReceived Time BloodVenous blood / UnknownVenipuncture / Wntyhod4005/09/2025 5:56 AM EDT 05/09/2025 6:09 AM EDT Narrative Authorizing ProviderResult TypeResult StatusVidhit Lenora DOLAB BLOOD ORDERABLES Final ResultPerforming OrganizationAddressCity/State/ZIP CodePhone Number [facility] [address] [place] [address], [place] [phone] * (ABNORMAL) Comprehensive metabolic panel (05/09/2025 5:56 AM EDT)Component ValueRef RangeTest MethodAnalysis TimePerformed AtPathologist SignatureSODIUM 846272 - 146 mmol/L1 6:42 AM [facility] POTASSIUM4.03.5 - 5.0 mmol/L1 6:42 AM [facility] XFVKKLTASXCCSWNCKJ66(L)98 - 109 mmol/L1 6:42 AM [facility] LABORATORYCARBON MCQXAMJ68(H)22 - 32 mmol/L1 6:42 AM [facility] LABORATORYANION GAP85 - 15 mmol/L1 6:42 AM EDT [facility]ORYBLOOD UREA YPENSQJM66(H)5 - 27 mg/dL 05/09/2025 6:42 AM [facility] LABORATORYCREATININE1.86(H)0.40 - 1.00 mg/dL05/09/2025 6:42 AM [facility] LABORATORYComment: METHOD TRACEABLE TO IDMS TPQGHFVDLPFRXSH096(H)65 - 99 mg/dL05/09/2025 6:42 AM [facility] LABORATORYCALCIUM9.18.5 - 10.5 mg/dL05/09/2025 6:42 AM [facility] LABORATORYTOTAL PROTEIN5.7(L)6.0 - 8.0 g/dL05/09/2025 6:42 AM [facility] LABORATORYALBUMIN3.0(L)3.2 - 5.3 g/dL05/09/2025 6:42 AM [facility] LABORATORYALKALINE AYEMETROPHX3871 - 130 U/L1 6:42 AM [facility] BUOKRECDVCFGT07<=41 U/L1 6:42 AM [facility] LABORATORYALT3<=31 U/L1 6:42 AM [facility] LABORATORYBILIRUBIN,TOTAL0.50.3 - 1.2 mg/dL05/09/2025 6:42 AM [facility]OR[facility]ORYEGFR Non-Race Cbklphakz67(L)>=60 ml/min/1.73sq.m 05/09/2025 6:42 AM [facility] LABORATORYComment: Reported eGFR is based on the CKD-EPI 2020 equation that does not use a race coefficient. Specimen (Source)Anatomical Location / LateralityCollection Method / Volume Collection TimeReceived TimeBloodVenous blood / UnknownVenipuncture / Unknown 05/09/2025 5:56 AM EDT1 6:09 AM EDT Narrative Authorizing ProviderResult TypeResult StatusRandaxa BARRY BLOOD ORDERABLES Final ResultPerforming OrganizationAddressCity/State/ZIP CodePhone Number [facility] [address] [place] [address], [place] [phone] * CT abdomen and pelvis without contrast [...] (Latest Code Status on File) Date ActivatedDate JectjopffaiTsyhlgyx68/26/2025 8:30 PM05/20/2025 1:51 PM Care Teams Team MemberRelationshipSpecialtyStart DateEnd Date Olivia Cazares MD [address] [place] [address] PCP - GeneralFamily Pxsddpmy44/27/25
--- OUTSIDE RECORDS SUMMARY | 2025-07-13 12:57 | XMS_ITS | Clinical Summary ---
Author Organization [facility] Address [address] [place] [address] Care Team Providers Care Assistant Professor Of Dietetics Name Role Phone Yaniv Natarajan MD Unavailable Allergies No known active allergies Medications MedicationSigDispense [...] Problems No known active problems Encounters DateTypeDepartmentCare DaqgAjpqijsqsxo72/22/2025Telephone [address] [place] [address] [address] [place] [address] Romel Maria MD Patient Gncuvvav81/18/2025Telephone Internal Medicine [address] [place] [address] Romel Maria MD Patient Ozntimrw59/17/2025Telephone Urology [address] [place] [address] Romel Maria MD Qkaaeqaisf73/16/2025 10:00 AM ESTNurse Visit Urology [address] [place] [address] Yaquelin Nurse Urol [facility] Recurrent UTI (Primary Dx); Presence of other specified devices; Hydronephrosis, unspecified hydronephrosis type06/28/2025 8:42 AM EST - 06/28/2025 11:59 PM ESTHospital Encounter Radiology [address] [place] [address] Hydronephrosis, unspecified hydronephrosis type [N13.30] Discharge Disposition: Home06/28/2025 8:00 AM ESTOffice Visit Urology [address] [place] [address] Romel Maria MD Hydronephrosis, unspecified hydronephrosis type (Primary Dx); Presence of other specified devices; Recurrent urinary tract infection; Recurrent UTI06/28/2025Radiology Radiology [address] [place] [address] Chel Altamirano RT(R) Radiology XR06/28/20255151Fqfcbn72/03/2025Transcribe Orders Referring Physician [address] [place] [address] Yaniv Natarajan MD Other hydronephrosis (Primary Dx)from Last 3 Months Social History Tobacco UseTypesPacks/DayYears UsedDateSmoking Tobacco: Never Assessed CommentsUnknownSex and Gender InformationValueDate RecordedSex Assigned at Not on fileLegal WfiUcvyqb58/03/2025 12:53 PM ESTGender IdentityNot on file Sexual OrientationNot on file Last Filed Vital Signs Vital SignReadingTime TakenCommentsBlood Rgdkvygs058/51108/29/2024 8:14 AM EST Wrwbh866606/28/2025 8:14 AM ESTTemperature--Respiratory Rate--Oxygen Saturation-- Inhaled Oxygen Concentration--Ctgyph17.2 kg (157 lb)06/28/2025 8:14 AM ESTHeight --Body Mass Index-- Plan of Treatment DateTypeDepartmentCare Team (Latest Contact Info)Etowsmpwjcf87/13/2026 10:50 AM ESTPAT Pre Anesthesia [address] [place] [address] declined VV -08/10 - CYSTOURETHROSCOPY W9/ URETEROSCOPY AND/OR PYELOSCOPY W/ LITHOTRIPSY INCLUDE INSERTION OF INDWELLING URETERAL STENT [[id number]] [25835] - Ureter - Lkegwvrwo39/28/2026 12:45 PM ESTHospital Encounter [facility] Operating Room [address] [place] [address] Romel Maria MD [address] [place] [address] Hydronephrosis, unspecified hydronephrosis type [N13.30], Presence of other specified devices [Z97.8], Recurrent urinary tract infection [N39.0]08/10/2025 12:45 PM EST - 08/10/2025 2:45 PM ESTSurgery [facility] Operating Room [address] [place] [address] Romel Maria MD [address] [place] [address] CYSTOURETHROSCOPY W9/ URETEROSCOPY AND/OR PYELOSCOPY W/ LITHOTRIPSY INCLUDE INSERTION OF INDWELLINGURETERAL STENT [11419]08/25/2025 9:[facility] [address] [place] [address] Romel Maria MD [address] [place] [address] post opNamePriorityAssociated DiagnosesDate/TimeCYSTOURETHROSCOPY W/ URETEROSCOPY AND/OR PYELOSCOPY W/ LITHOTRIPSY INCLUDE INSERTION OF INDWELLING U RETERAL STENT Hydronephrosis, unspecified hydronephrosis type Presence of other specified devices Recurrent urinary tract infection 08/10/2025 12:45 PM ESTHealth MaintenanceDue DateLast DoneCommentsAnxiety Ozsdltqgo94/22/1963Depression Chknckktd81/22/1963Shingrix Vaccine (1 of 2) 1995Medicare Annual Wellness Visit05/14/2010one Density Screening 2010DTaP,Tdap,Td Vaccine (1 - Tdap)RSV Vaccine (1 - 1- dose 75+ series)2020Advance Directive Ncvysgazzj02/01/2025Covid-19 Vaccine ( season)/11/2021, 04/13/2021, 08/30/2020, Additional history existsInfluenza Vaccine (#1)/, 04/30/2011Diabetes Xzjfcimlx73, 05/19/2025, 05/18/2025, Additional history exists Pneumococcal Vaccine: 50+Gplkuhxxl46/01/2018, 10/30/2016, 10/12/2016 Goals GoalPatient Goal TypeAssociated ProblemsRecent ProgressPatient-Stated?Author Autogenerated Goal Care PlanAutogenerated ProblemNoPatty Trinh Procedures Procedure NamePriorityDate/TimeAssociated DiagnosisCommentsBACTERIAL CULTURE, OXBRSUuyhtvq94/16/2025 11:56 AM EST Recurrent UTI XR ABDOMEN 2V ROUTINE SUPINE W UPRIGHT/DECUB/MCYTWCA32/16/2025 9:11 AM EST Hydronephrosis, unspecified hydronephrosis type from Last 3 Months Results * BACTERIAL CULTURE, URINE (06/28/2025 11:56 AM EST)ComponentValueRef RangeTest MethodAnalysis TimePerformed AtPathologist SignatureCulture, Urine10,000 - <50,000 CFU/ml Normal urogenital flora06/30/2025 8:14 AM EST[facility] MAIN LABSpecimen (Source)Anatomical Location / LateralityCollection Method / VolumeCollection TimeReceived TimeUrineURINE SPECIMEN / UnknownNon Blood / Swymhfg5806/28/2025 11:56 AM EST06/28/2025 12:10 PM EST Narrative Authorizing ProviderResult TypeResult StatusRomel Maria MDMICROBIOLOGYFinal ResultPerforming OrganizationAddressCity/State/ZIP CodePhone Number [facility] [address] [place] [address], [place] * XR ABDOMEN 2V ROUTINE SUPINE W UPRIGHT/DECUB/CTL (06/28/2025 9:11 AM EST) Anatomical RegionLateralityModalityAbdomenOtherSpecimen (Source)Anatomical Location / LateralityCollection Method / VolumeCollection TimeReceived Time 06/28/2025 9:11 AM EST Impressions 06/28/2025 10:03 AM EST IMPRESSION: 1. ??Left ureteral stent with a superior segment that is coiled. ?? Comparison with the prior study would be useful. 2. ??Right ureteral stent and left percutaneous nephrostomy tube. Group Leader: WALTER ?? Transcribe Date/Time: Jun 28 2025 [...] nephrostomy tube placed one month ago at [facility] due to stents not functioning properly. TECHNIQUE: 3 views of the abdomen and pelvis. RESULT: Right ureteral stent is noted. ??The left ureteral stent is noted with the superior segment that is coiled. ??A left nephrostomy tube is noted. Left hip arthroplasty. ??Postoperative changes of the chest. ??No evidence of bowel obstruction. Procedure Note Provider, [facility] Caroleen - 06/28/2025 * * *Final Report* * [...] nephrostomy tube placed one month ago at [facility] due to stents not functioning properly. [...] ureteral stent and left percutaneous nephrostomy tube. Group Leader: [facility] Transcribe Date/Time: Jun 28 2025 9:54A Dictated by : CHEVY CASTRO MD This examination was interpreted and the report reviewed and electronically signed by: CHEVY CASTRO MD on Jun 28 2025 10:01AM EST Authorizing ProviderResult TypeResult StatusFerjen Maria MDRAD-PAMAFinal Result from Last 3 Months Additional Health Concerns Active ProblemsNoted DateDiagnosed DateAutogenerated Kcfthyl5007/04/2025 Insurance Care Teams Team MemberRelationshipSpecialtyStart DateEnd Yaniv Natarajan MD [address] [place] [phone] TlvjkttdpRvykbmw09/3/25
--- OUTSIDE RECORDS SUMMARY | 2025-07-13 12:57 | XMS_ITS | Clinical Summary ---
Author Organization [facility] Address [address] [facility] [place] [address] Care Team Providers Care Controller [place] [employer] [place] Name Role Phone Unavailable Primary Care Provider Unavailabl e Source Comments The following information is NOT included in Care Everywhere downloads:Psychiatric notes, ECG results, Cardiac Rehab notes, Pulmonary Function notes, data from SmartForms (includes but not limited toPregnancy data,audiograms, eye exams, pre-surgical evaluation notes, well-child exam data).[facility] Social History Tobacco UseTypesPacks/DayYears UsedDateSmoking Tobacco: Never Assessed CommentsUnknownSex and Gender InformationValueDate RecordedSex Assigned at Not on fileLegal UybXmtiki84/26/2025 2:36 PM EDTGender IdentityNot on fileSexual OrientationNot on file Plan of Treatment Health MaintenanceDue DateLast DoneCommentsTdap Odgmypa6506/04/1963Hepatitis A (HAV) Vaccine (optional start 19+ years)1964Tetanus (Td or Tdap) Booster 1964Pneumococcal Vaccine(s) (50+ yrs) (1 of 1 - PCV)1995Shingles (RZV) Vaccine (1 of 2)1995Hepatitis B (HBV) Vaccine (optional start 60+ years)2005Bone Pcakfqckwyhi38/22/2010RSV vaccine (adult) (1 - 1-dose 75+ series)2020COVID-19 Vaccine (1 - 2024- season)2025Influenza Vaccine (#1)2025Welcome to Medicare Visit (G0402)05/08/2025Pap Smear Discontinued Insurance
--- OUTSIDE RECORDS SUMMARY | 2025-07-13 12:57 | XMS_ITS | Encounter Summary ---
Author Organization [facility] Address [address] [place] [address] Care Team Providers Care Laborer [place] Name Role Phone Yaniv Natarajan MD Unavailable Source Comments In the event this information is protected by the Federal Confidentiality of Alcohol and Drug AbusePatient Records regulations: The Federal rules restrict any use of the information to criminally investigate or prosecute any alcohol or drug abuse patient.[facility] Reason for Visit * ReasonCommentsScheduling Encounter Details DateTypeDepartmentCare Team (Latest Contact Info)Dgnenvptyky25/17/2025Telephone Urology [address] [address] Romel Maria MD [address] [facility] [place] [address] Scheduling Social History Tobacco UseTypesPacks/DayYears UsedDateSmoking Tobacco: Never Assessed CommentsUnknownSex and Gender InformationValueDate RecordedSex Assigned at Not on fileLegal YpvBmhwwk32/03/2025 12:53 PM ESTGender IdentityNot on file Sexual OrientationNot on filedocumented as of this encounter Miscellaneous Notes * Telephone Encounter - Valarie Hawkins - 06/29/2025 3:17 PM EST LM for pt to call back and schedule surgery [phone] documented in this encounter Plan of Treatment DateTypeDepartmentCare Team (Latest Contact Info)Wsudwpguiyz30/13/2026 10:50 AM ESTPAT Pre Anesthesia [address] [place] [address] declined VV -08/10 - CYSTOURETHROSCOPY W9/ URETEROSCOPY AND/OR PYELOSCOPY W/ LITHOTRIPSY INCLUDE INSERTION OF INDWELLING URETERAL STENT [29147] [00624] - Ureter - Qbaooztcb28/28/2026 12:45 PM ESTHospital Encounter [facility] Operating Room [address] [place] [address] Romel Maria MD [address] [place] [address] Hydronephrosis, unspecified hydronephrosis type [N13.30], Presence of other specified devices [Z97.8], Recurrent urinary tract infection [N39.0]08/10/2025 12:45 PM EST - 08/10/2025 2:45 PM ESTSurgery [facility] Room [address] [place] [address] Romel Maria MD [address] [place] [address] CYSTOURETHROSCOPY W9/ URETEROSCOPY AND/OR PYELOSCOPY W/ LITHOTRIPSY INCLUDE INSERTION OF INDWELLINGURETERAL STENT [03101]08/25/2025 9:[address] [facility] Urology [address] [place] [address] Romel Maria MD [address] [place] [address] post opNamePriorityAssociated DiagnosesDate/TimeCYSTOURETHROSCOPY W/ URETEROSCOPY AND/OR PYELOSCOPY W/ LITHOTRIPSY INCLUDE INSERTION OF INDWELLING U RETERAL STENT Hydronephrosis, unspecified hydronephrosis type Presence of other specified devices Recurrent urinary tract infection 08/10/2025 12:45 PM ESTdocumented as of this encounter Visit Diagnoses Not on filedocumented in this encounter Care Teams Team MemberRelationshipSpecialtyStart DateEnd Date Yaniv Natarajan MD [address] [place] [address] BbmkkshjiRcwghnq91/3/25documented as of this encounter
--- NOTE | 2025-07-13 12:58 | ECG_ITS ---
[facility] Test Date: 2025-07-13 Pat Name: ESTHER TATUM Department: Room: - Gender: Female Leather Colorer: : 1945 Requested By: [id number] Order Number: [id number] Reading MD: HI PEREZ M.D. Measurements Intervals [place] Rate: 65 P: 16 CO: 220 QRS: -27 QRSD: 120 T: 155 QT: 444 QTc: 455 Interpretive Statements 1100 Sinus rhythm 2231 First degree AV block 3114 Cannot rule out anterior myocardial infarction, age undetermined 3632 Inferior myocardial infarction, probably recent [address] depression, possible subendocardial injury 4564 Twave abnormality, possible lateral ischemia 9150 abnormal ECG Compared to ECG 07/03/2025 05:13:34 No significant changes Electronically Signed On 07-13-2025 16:57:29 EST by HI PEREZ M.D.
--- NOTE | 2025-07-13 12:58 | XR_ITS ---
The [address] [address] Patient Name: ESTHER TATUM MRN: [id number] date: 1945 Sex: F Assigned Patient Location: ER Current Patient Location: ER Accession/Order Number: [id number] Exam Date: 07/13/2025 13:40 Report Date: 07/13/2025 13:57 At the request of: MELVINA CLEANING MD Procedure: XR chest 1V Single view chest compared to prior examination 07/02/2025 HISTORY: Shortness of breath CABG changes redemonstrated. Cardiac mediastinal silhouettes stable. Mild hilar congestion. Mild left basilar pleural-parenchymal changes. No pneumothorax. XR/XR chest 1V IMPRESSION: Findings suggesting mild failure. Impression dictated by: Gary Sparrow M.D. 07/13/2025 1:57 PM Dictation Location: [place] [address] Electronically authenticated by: [id number] Y Date: 07/13/2025 13:57
--- OUTSIDE RECORDS SUMMARY | 2025-07-13 12:58 | XMS_ITS | Clinical Summary ---
Author Organization [facility] Address [address] [place] [address] Phone Care Team Providers Care [employer] Name Role Phone Olivia Cazares MD Primary Care Provider [phone] Allergies Active AllergyReactionsCriticalityNoted DateCommentsAce InhibitorsOtherLow 07/08/20230335KkfxkczzzxhiBppdqtzWjxeae52/26/1507VtyfbxilahhwimMjnerIcw38/26/2023 Iwbsvmf-Sgs-Hbh Reductase KtywzrellpVrdxzlhEfg59/26/2023 Medications MedicationSigDispense QuantityRefillsLast FilledStart DateEnd DateStatus allopurinol [...] lifestyle choices on overall cardiovascular health. Former jyteno4109/17/2023ruit of right carotid rpmhnj4407/08/2023AD, multiple tizblt2407/08/2023 Assessment & Plan (08/12/2024 9:41 AM EST): November 2016 CABG x 15 June 2017 cardiac cath Distal/mid RCA PCI/GURU x 2 HACKETT-LAD was patent Sequential saphenous vein graft from PDA-OM was occluded LVEF 45% October 2023 MPI no ischemia, no infarct. EF 48%. Current daily activity less than 4 METS. Zsjuupvbm89/26/0278Wrkbt29/26/2023HTN (hypertension)07/08/2023 Assessment & Plan (08/12/2024 9:41 AM EST): Asymptomatic hypotension noted in the office today. 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 Chanel retired. During January 2024 hospitalization for hydronephrosis she had a CT of the abdomen that was unremarkable in regards to aortic aneurysm. S/P CABG x SOB (shortness of breath) on oduykhnk63/26/2023Type 2 diabetes lethjhyh54/26/2023 Assessment & Plan (08/12/2024 9:45 AM EST): On WILLIAMS/statin Recent hemoglobin A1c 8.2 Resolved Problems ProblemNoted DateDiagnosed DateResolved DateAbnormal EKG1/12/2023 History of cuqnvuyxbnb38/26/202301/History of GA (myocardial infarction) / Encounters DateTypeDepartmentCare JpqfKpyovxhctim63/05/2025Scanned Document [facility] [address] [place] [phone] Scanning, Generic Provider 04/12/2025Scanned Document [facility] [address] [place] [phone] Scanning, Generic Provider from Last 3 Months Immunizations ImmunizationAdministration DatesNext DueInfluenza, injectable, quadrivalent 2Pfizer Purple Cap NMLW-CvM-574/07/2020,08/30/2020,08/09/2020 Pneumococcal conjugate vaccine, 13-valent (PREVNAR 13)04/13/2018,10/30/2016 Pneumococcal polysaccharide vaccine, 23-valent, age 2 years and older (PNEUMOVAX 23)10/12/2016 Family History Medical HistoryRelationNameCommentsKidney cancerBrotherHeart diseaseFather HypertensionMotherRelationNameStatusCommentsBrotherFatherMother Social History Tobacco UseTypesPacks/DayYears UsedDateSmoking Tobacco: FormerCigarettesQuit: 2000Smokeless Tobacco: NeverAlcohol UseStandard Drinks/WeekCommentsYes0 (1 standard drink = 0.6 oz pure alcohol)occasionalCommentsUnknownSex and Gender InformationValueDate RecordedSex Assigned at BirthNot on fileLegal Sex Rojlgs1806/07/2022 9:40 PM ESTGender IdentityNot on fileSexual OrientationNot on file Last Filed Vital Signs Vital SignReadingTime TakenCommentsBlood Nfkdrvnt559/60008/11/2024 3:39 PM EST Awxcc929608/11/2024 3:23 PM ESTTemperature--Respiratory Rate--Oxygen Saturation-- Inhaled Oxygen Concentration--Cyxeau00.8 kg (165 lb)08/11/2024 3:23 PM ESTHeight 149.9 cm (4' 11 )08/11/2024 3:23 PM ESTBody Mass Index33.33008/11/2024 3:23 PM EST Plan of Treatment DateTypeDepartmentCare Team (Latest Contact Info)Wpvhykxwmdp93/12/2026 9:45 AM ESTAppointment at [facility] [address] [place], [place] [address] [place] [address] 08/23/2025 11:20 AM ESTOffice Visit at [facility] [address] [place] [phone] Tom Cobb, [address] [facility] [address], [address] [address] Health MaintenanceDue DateLast DoneCommentsDiabetes: Celiac Disease Screening 1945Diabetes: Urine Protein Pstylvtzl1945TSH Level1945Vitamin B-12108/04/1944Hepatitis A Vaccines (1 of 2 - Risk 2-dose series)1964 DTaP/Tdap/Td Vaccines (1 - Tdap)1967Zoster Vaccines (1 of 2)1995 Hepatitis B Vaccines (1 of 3 - Risk 3-dose series)2005Bone Density Scan 2010Diabetes: Hemoglobin A1CRSV High Risk: (Elderly (60+) or Population) (1 - 1-dose 75+ series)2020Creatinine Level Lipid PanelPotassium Level06/16/2020 06/16/2019Medicare Annual Wellness Visit (AWV)/10/2021, 03/13/2020, 12/10/2016COVID-19 Vaccine ( season), 04/13/2021, 08/30/2020, Additional history existsInfluenza Vaccine (#1)/, 07/01/2019, 07/14/2018, Additional history existsDiabetes: Retinopathy Screening /11/2024, 07/19/2022, 03/02/2019, Additional history exists Fsgamszmuruezs59/25//Pneumococcal HlurbdnNkamhsckz59/04/2018, 04/13/2018, 10/30/2016, Additional history existsHIB VaccinesAged OutNo [...] Procedures Procedure NamePriorityDate/TimeAssociated DiagnosisCommentsOUTSIDE LAB SCAN 04/17/2025 CLQEDBEISAWVFS13/25/2025 HEMOGLOBIN N2HDbcoumv91/04/2019 12:05 PM EST LIPID DGZMFFkznkqi98/04/2019 12:05 PM EST COMPREHENSIVE METABOLIC USRYWPwazxwi93/04/2019 12:05 PM EST from Last 3 Months [...] EST)ComponentValueRef RangeTest Method Analysis TimePerformed AtPathologist SignatureHemoglobin A1C7.5%[facility] Comment: ? Diagnosis of Diabetes-Adults Non-Diabetic: < or = 5.6% Increased risk for developing diabetes: 5.7-6.4% Diagnostic of diabetes: > or = 6.5% . ? Monitoring of Diabetes ?Age (y) ? Therapeutic Goal (%) Adults: >18 <7.0 Pediatrics: 13-18 <7.5 7-12 <8.0 ? 0- 6 ?7.5-8.5 [place] [employer]. Diabetes Care 33(S1), Jul 2009. Estimated Average Kuevsrt349CV/DLMOUNT NITTANY MEDICAL CENTER LABSpecimen (Source)Anatomical Location / LateralityCollection Method / VolumeCollection TimeReceived Time06/16/2019 12:05 PM EST06/16/2019 11:43 PM EST Narrative Authorizing ProviderResult TypeResult StatusKim Paul BARRY BLOOD ORDERABLESFinal ResultPerforming OrganizationAddressCity/State/ZIP CodePhone Number [facility] * (ABNORMAL) Lipid Panel (06/16/2019 12:05 PM EST)ComponentValueRef RangeTest MethodAnalysis TimePerformed AtPathologist LexiuvispEblebiqsfkj0084 - 199 mg/dLNEMOURS [facility] LABComment: . ?AGE ?DESIRABLE ?? BORDERLINE [...] be performed immediately prior to Metamizole dosing. HDL39.0(A)mg/dLNEMOURS CHILDREN'S CL[facility]IC [facility] LABComment: . ?AGE ?VERY LOW ?? LOW ? NORMAL ?HIGH ?? 0-19 Y < 35 < 40 40-45 ---- 20-24 Y ---- < 40 >45 ---- >24 Y ---- < 40 40-60 >60 . Cholesterol/HDL Ratio4.7[facility] LABComment: REF VALUES DESIRABLE < 3.4 HIGH RISK > 5.0 NWM459 - 99 mg/dLNEMOURS CH[facility]'S [facility] LABComment: . ? NEAR ?BORD ?AGE ?DESIRABLE ??OPTIMAL ?HIGH ? HIGH ? VERY HIGH 0-19 Y 0 - 109 --- 110-129 >/= 130 ---- 20-24 Y 0 - 119 --- 120-159 >/= 160 ---- >24 Y 0 - 99 100-129 130-159 160-189 >/=190 . VLDL51(H)0 - 40 mg/dLNEMOURS [facility] MIMGacdzruypkqpn888(H)0 - 149 mg/dL [facility] LABComment: . ?AGE ?DESIRABLE ?? BORDERLINE [...] immediately prior to Metamizole dosing. Non HDL Yyxeppjxbja407ay/dLNEMOURS CH[facility]EN'S [facility] LABComment: ?AGE ?DESIRABLE ?? BORDERLINE HIGH [...] 5:59 PM EST Narrative Authorizing ProviderResult TypeResult StatusWichip BARRY BLOOD ORDERABLESFinal ResultPerforming OrganizationAddressCity/State/ZIP CodePhone Number [facility] * (ABNORMAL) Comprehensive Metabolic Panel (06/16/2019 12:05 PM EST)Component ValueRef RangeTest MethodAnalysis TimePerformed AtPathologist SignatureGlucose 115(H)74 - 99 mg/dLNEMOURS [facility] ORVXqtslb304948 - 145 mmol/[facility] LABPotassium5.4(H)3.5 - 5.3 mmol/[facility] Cajvfidh52883 - 107 mmol/[facility] MXBBfislsyymgx7837 - 32 mmol/L [facility] LABAnion Dny3142 - 20 mmol/[facility] Urea Ydbgunsa52(H)6 - 23 mg/dLNEMOURS [facility] LABCreatinine1.32(H)0.50 - 1.05 mg/dLNEMOURS [facility]'S [facility]IC [facility] LABGLOMERULAR FILTRATION RATE-NON QKSHJTSV29(A)>60 mL/min/1.58m3TEGALQNEMOURS CHILDREN'S CLINIC [facility]OS[facility]ITAL LABGLOMERULAR FILTRATION RATE- QQQVZNDI30(A)>60 mL/min/1.40o2AJPDLUNEMOURS CHILDREN'S CLINIC [facility] LABComment: CALCULATIONS OF ESTIMATED GFR ARE PERFORMED USING THE MDRD STUDY EQUATION FOR THE IDMS-TRACEABLE CREATININE METHODS. CLIN CHEM 2007;53:766-72 Calcium9.88.6 - 10.3 mg/dLNEMOURS CH[facility]'S [facility] LABAlbumin4.13.4 - 5.0 g/dL [facility] LABAlkaline Vmfzpnabzco5748 - 136 U/[facility] LABTotal Protein7.56.4 - 8.2 g/dLNEMOURS [facility]'S [facility] KQTVEP764 - 39 U/[facility] LABTotal Bilirubin0.50.0 - 1.2 mg/dLNEMOURS [facility]'S [facility] LABALT (SGPT)127 - 45 U/[facility] LABComment: Patients treated with Sulfasalazine may generate falsely decreased results for ALT. Specimen (Source)Anatomical Location / LateralityCollection Method / Volume Collection TimeReceived Time06/16/2019 12:05 PM EST06/16/2019 5:59 PM EST Narrative Authorizing ProviderResult TypeResult StatusKim Paul BARRY BLOOD ORDERABLESFinal ResultPerforming OrganizationAddressCity/State/ZIP CodePhone Number [facility] from Last 3 Months or Most Recently Relevant to Health Maintenance Insurance MemberSubscriberPlan / Payer (Effective 2010-Present)Name:Lexi Cm Member ID:[id number] Relation to Subscriber:SelfName:Lexi Cm Subscriber ID:[id number] Payer ID:Not on file Group ID:Not on file Type:Not on file Address: [place] [phone] MemberSubscriberPlan / Payer (Effective 2010-Present)Name:Lexi Cm Member ID:[id number] Relation to Subscriber:SelfName:Lexi Cm Subscriber ID:[id number] Payer ID:Not on file Group ID:Not on file Type:Not on file Address: [place] [phone] Care Teams Team MemberRelationshipSpecialtyStart DateEnd Olivia Cazares MD [address] [place] [address] [facility]
[2025-07-13 13:21] LABS: Hematocrit 31.1 % (36.0-48.0); Hemoglobin 9.6 g/dL (12.0-16.0); Immature Granulocytes Abs Auto 0.05 10^3/uL (0.00-0.03); Immature Granulocytes Pct Auto 0.5 % (0.0-0.5); Lymphocytes Absolute Auto 2.4 10^3/uL (1.2-3.8); Mean Corpuscular HGB Conc 30.9 g/dL (29.9-35.2); Mean Corpuscular Hemoglobin 29.3 pg (26.7-34.0); Mean Corpuscular Volume 94.8 fL (81.0-99.0); Platelet Count 288 10^3/uL (150-450); Red Blood Count 3.28 10^6/uL (4.20-5.40); White Blood Count 10.5 10^3/uL (4.0-11.0)
[2025-07-13 13:44] LABS: Alanine Aminotransferase 13 U/L (14-59); Albumin Globulin Ratio 0.5; Albumin Level 2.3 g/dL (3.4-5.0); Alkaline Phosphatase 70 U/L (46-116); Anion Gap 12.4; Aspartate Amino Transferase 14 U/L (15-37); Blood Urea Nitrogen 69.0 mg/dL (7.0-18.0); Calcium 9.1 mg/dL (8.5-10.1); Carbon Dioxide 31.7 mmol/L (21.0-32.0); Chloride 87 mmol/L (98-107); Estimated GFR (African America 19 (>=60 mL/min/1.73m^2); Estimated GFR (Non-African Ame 16 (>=60 mL/min/1.73m^2); Globulin 4.4 g/dL; Glucose 175 mg/dL (74-106); Sodium 125 mmol/L (136-145); Total Protein 6.7 g/dL (6.4-8.2)
[2025-07-13 13:48] LABS: Potassium 6.1 mmol/L (3.5-5.1)
[2025-07-13] MEDS: CALCIUM GLUC IN NACL, ISO-OSM 1 GM/50 ML PLAST..BAG IV (14:08)
[2025-07-13 15:00] LABS: Potassium 6.3 mmol/L (3.5-5.1)
[2025-07-13] MEDS: INSULIN REGULAR, HUMAN (100 UNIT/ML) 10 ML MDV 10 UNIT IV (15:56)
[2025-07-13] MEDS: DEXTROSE 50 %-WATER 25 GM/50 ML SYRINGE IV (16:00)
[2025-07-13] MEDS: SODIUM POLYSTYRENE SULFON 15 GM/60 ML ORAL.SUSP KAYEXALATE 30 GM PO (16:08)
[2025-07-13] MEDS: FUROSEMIDE 40 MG/4 ML VIAL IVP (16:09)
--- NOTE | 2025-07-13 16:14 | ED.RECABL1 ---
HPI - Recheck/Abnormal Lab/Rx General Chief Complaint: Recheck/Abnormal Lab/Rx Stated Complaint: WEIGHT CT Time Seen by Provider: 07/13/25 12:57 Source: patient Mode of arrival: ambulance History of Present Illness HPI narrative: Presents to us after she had outpatient workup and it found that she have elevated BUN. The patient on arrival she does not have any complaints she mentioned that she have distal bilateral leg edema but this has been going on for a while. And she was already diagnosed with congestive heart failure almost 10 days ago when she was admitted to the hospital and started on Bumex every other day The patient denies any complaint of shortness of breath she uses a 2 L nasal cannula at the baseline Noted in her history that the patient have a history of bilateral stent in her ureters placed in [facility] and she have a nephrostomy tube to the left kidney that was placed there and the plan was to remove the stent at the end of July the nephrostomy is draining well Related Data Home Medications ?Medication ?Instructions ?Recorded ?Confirmed allopurinol 300 mg tablet 300 mg PO DAILY 08/30/23 07/13/25 cholecalciferol (vitamin D3) 125 125 mcg PO .every other day 08/30/23 07/13/25 mcg (5,000 unit) tablet clopidogrel 75 mg tablet 75 mg PO DAILY 08/30/23 07/13/25 Held on 07/13/25. Instructions: on hold docusate sodium 100 mg capsule 100 mg PO .QHS 07/02/25 07/13/25 (Colace) aspirin 81 mg tablet,delayed 81 mg PO DAILY 07/03/25 07/13/25 release atorvastatin 20 mg tablet 20 mg PO QPM 07/13/25 07/13/25 bumetanide 2 mg tablet 2 mg PO .Every other day 07/13/25 07/13/25 gabapentin 100 mg capsule 100 mg PO BID 07/13/25 07/13/25 (Neurontin) insulin lispro 100 unit/mL 1 sliding scale dose subcut 07/13/25 07/13/25 subcutaneous pen USEASDIRECTD Previous Rx's ?Medication ?Instructions ?Recorded glucagon 1 mg solution for 1 mg IV Q15M PRN Hypoglycemia #0 ea 04/15/25 injection (Glucagon Emergency Kit) acetaminophen 500 mg tablet 500 mg PO Q8H PRN fever or pain #0 07/04/25 tabs insulin glargine 100 unit/mL (3 28 unit (0.28 mL) subcut QPM #0 mL 07/04/25 mL) subcutaneous pen (Lantus Solostar U-100 Insulin) losartan 25 mg tablet 25 mg PO DAILY #30 tabs 07/04/25 metoprolol succinate 25 mg 25 mg PO QD #0 tabs 07/04/25 tablet,extended release 24 hr multivitamin with folic acid 400 1 tab PO QD #0 tabs 07/04/25 mcg tablet (Tab-A-Darrel) torsemide 20 mg tablet 30 mg (1.5 x 20 mg) PO DAILY #30 07/04/25 tabs Allergies Allergy/AdvReac Type Severity Reaction Status Date / Time No Known Drug Allergies Allergy Verified 04/07/25 13:32 Review of Systems ROS Status of ROS 10 or more systems reviewed and unremarkable except as noted in history and below [facility] Medical History (Updated 07/13/25 @ 18:27 by Precious House MD) Chronic hypoxic respiratory failure ?J96.11 - Chronic respiratory failure with hypoxia (ICD-10) Gait instability ?R26.81 - Unsteadiness on feet (ICD-10) Bilateral hydronephrosis ?N13.30 - Unspecified hydronephrosis (ICD-10) (HFpEF) heart failure with preserved ejection fraction ?I50.30 - Unspecified diastolic (congestive) heart failure (ICD-10) Hypertensive heart and chronic kidney disease with heart failure and stage 1 through stage 4 chronic kidney disease, or unspecified chronic kidney disease ?I13.0 - Hypertensive heart and chronic kidney disease with heart failure and stage 1 through stage 4 chronic kidney disease, or unspecified chronic kidney disease (ICD-10) Gout ?M10.9 - Gout, unspecified (ICD-10) Peripheral arterial disease ?I73.9 - Peripheral vascular disease, unspecified (ICD-10) Stage 3b chronic kidney disease (CKD) ?N18.32 - Chronic kidney disease, stage 3b (ICD-10) HTN (hypertension) ?I10 - Essential (primary) hypertension (ICD-10) Surgical History S/P hip replacement ?Z96.649 - Presence of unspecified artificial hip joint (ICD-10) History of aortic bifurcation bypass graft ?Z95.828 - Presence of other vascular implants and grafts (ICD-10) S/P triple vessel bypass ?Z95.1 - Presence of aortocoronary bypass graft (ICD-10) History of 3 sections ?Z98.891 - History of uterine scar from previous surgery (ICD-10) Family History Brother Family history of cancer Mother Family history of hypertension Father Family history of myocardial infarction Other Family history of CHF (congestive heart failure) Family history of diabetes mellitus Social History Within the past year, how often did you have a drink containing alcohol: never Score interpretation: A score less than 3 is consistent with normal alcohol consumption. Smoking status: Former smoker Non-prescribed substance use: denies use Previous occupational history: disabled Highest level of school completed/degree received: Associate degree: occupational, technical, vocational program Are you now , , , , never or living with a partner: In a typical week, how many times do you talk on the telephone with family, friends, or neighbors: 3 or more times per week How often do you get together with friends or relatives: 3 or more times per week How often do you attend restorationism or cheondoism services: 4 or more times per year Little interest or pleasure in doing things: not at all Feeling down, depressed, or hopeless: not at all Feel stressed/tense/nervous/anxious/difficulty sleeping: not at all Do you think of yourself as: straight/heterosexual Gender Identity: female Exam Narrative Exam Narrative: Nurses notes and vital signs reviewed and patient is not hypoxic. General: Well-appearing and in no apparent distress. Skin: Warm, dry, no pallor noted. No rash. Head: Normocephalic, atraumatic. Neck: Supple, non-tender. Eye: Pupils are equal, round and EOMI. No scleral icterus. Ears, Nose, Mouth, and Throat: TM are clear, no nasal mucosal hypertrophy. Oral mucosa is moist, no posterior oropharynx erythema, uvula is mid-line Cardiovascular: Regular Rate and Rhythm without murmur, gallop or rub. Respiratory: Decreased air entry in the bases no wheezes or crackles heard s Back: Nephrostomy tube in the left CVA last dressing was July 10 looks clean and the infection Musculoskeletal: 1+ pitting edema bilaterally GI: Abdomen is soft, non-distended. Normal bowel sounds. No masses appreciated. No tenderness to palpation. No rebound, guarding, or rigidity noted. Neurological: A&O x4. No cranial nerve dysfunction observed. No truncal ataxia. Moves all extremities. Sensation intact. Psychiatric: Cooperative and interactive. Normal mood and affect. Constitutional Vital Signs, click to edit/add: Last Vital Signs Temp 98.1 F 07/13/25 12:39 Pulse 62 07/13/25 18:00 Resp 15 07/13/25 18:00 BP 113/64 07/13/25 16:34 Pulse Ox 98 07/13/25 17:00 O2 Del Method Nasal Cannula 07/13/25 12:52 Course Vital Signs Vital signs: Vital Signs Temperature 98.1 F 07/13/25 12:39 Pulse Rate 67 07/13/25 12:39 Respiratory Rate 16 07/13/25 12:39 Blood Pressure 140/79 07/13/25 12:39 Pulse Oximetry 100 07/13/25 12:39 Temperature 98.1 F 07/13/25 12:39 Pulse Rate 62 07/13/25 18:00 Respiratory Rate 15 07/13/25 18:00 Blood Pressure 113/64 07/13/25 16:34 Pulse Oximetry 98 07/13/25 17:00 Oxygen Delivery Method Nasal Cannula 07/13/25 12:52 MDM - Recheck/Abnormal Lab/Rx MDM Narrative Medical decision making narrative: The patient EKG upon arrival does not show any peaking of the T waves and does show chronic changes that seen in old EKG it was sinus rhythm with a heart rate of 65 The patient potassium was 6.1 repeated was 6.3 with no hemolysis and she does have some acute kidney injury with a creatinine of 2 baseline usually is 1.6 The patient BN peptide 6000 today is a lot better than 11,000 when she was here 10 days ago and her chest x-ray shows no congestion The patient had an echo done in April of this year and at that showed that her ejection fraction is 55% with mostly increased pulmonary hypertension with diastolic mostly heart failure The patient right now she was provided with calcium gluconate as well as insulin 10 units regular in addition dextrose 50 and Kayexalate and Lasix 40 mg as well Repeat the potassium now is 5.4 the patient initially had her case discussed with the hospitalist in our facility but he recommended the patient being transferred to [facility] and the patient is agreeable The patient case discussed with and he had with above-mentioned plan The patient does have a nephrostomy tube in the left side but is draining well and her presentation of hyperkalemia mostly secondary to kidney injury with no abdominal pain or any signs of fever or any right now suspicion that the patient is mostly having the nephrostomy and the reason for the acute kidney injury Lab Data Labs: Lab Results 07/13/25 07/13/25 07/13/25 Range/Units 12:50 14:31 17:59 WBC 10.5 (4.0-11.0) 10^3/uL RBC 3.28 L (4.20-5.40) 10^6/uL Hgb 9.6 L (12.0-16.0) g/dL Hct 31.1 L (36.0-48.0) % MCV 94.8 (81.0-99.0) fL MCH 29.3 (26.7-34.0) pg MCHC 30.9 (29.9-35.2) g/dL RDW 16.8 H (11.0-15.0) % Plt Count 288 (150-450) 10^3/uL MPV 11.4 (9.5-13.5) fL Neut % (Auto) 66.6 (43.0-75.0) % Lymph % (Auto) 22.5 (20.5-60.0) % [place] % (Auto) 5.9 (1.7-12.0) % Eos % (Auto) 4.1 (0.9-7.0) % Baso % (Auto) 0.4 (0.2-2.0) % Neut # (Auto) 7.0 H (1.4-6.5) 10^3/uL Lymph # (Auto) 2.4 (1.2-3.8) 10^3/uL [place] # (Auto) 0.6 (0.3-0.8) 10^3/uL Eos # (Auto) 0.4 (0.0-0.7) 10^3/uL Baso # (Auto) 0.0 (0.0-0.1) 10^3/uL Abs Immat Gran (auto) 0.05 H (0.00-0.03) 10^3/uL Imm/Tot Granulo (auto) 0.5 (0.0-0.5) % Sodium 125 L 130 L (136-145) mmol/L Potassium 6.1 H* 6.3 H* 5.4 H (3.5-5.1) mmol/L Chloride 87 L 88 L (98-107) mmol/L Carbon Dioxide 31.7 35.9 H (21.0-32.0) mmol/L Anion Gap 12.4 11.5 BUN 69.0 H 68.0 H (7.0-18.0) mg/dL Creatinine 2.89 H 3.05 H (0.55-1.02) mg/dL Est GFR ( Amer) 19 L 18 L (>=60 mL/min/1.73m^2) Est GFR (Non-Af Amer) 16 L 15 L (>=60 mL/min/1.73m^2) BUN/Creatinine Ratio 23.9 22.3 Glucose 175 H 119 H (74-106) mg/dL Calcium 9.1 9.5 (8.5-10.1) mg/dL Total Bilirubin 0.2 (0.2-1.0) mg/dL AST 14 L (15-37) U/L ALT 13 L (14-59) U/L Alkaline Phosphatase 70 (46-116) U/L Troponin I High Sens 17.3 (4.0-51.3) pg/mL NT-Pro-B Natriuret Pep 6549.0 H* (<=1800.0) pg/mL Total Protein 6.7 (6.4-8.2) g/dL Albumin 2.3 L (3.4-5.0) g/dL Globulin 4.4 g/dL Albumin/Globulin Ratio 0.5 Discharge Plan Discharge Chief Complaint: Recheck/Abnormal Lab/Rx Clinical Impression: SUSAN (acute kidney injury), Acute hyperkalemia, CHF (congestive heart failure) Patient Disposition: [facility] Time of Disposition Decision: 18:27 Mode of Transportation: EMS
[2025-07-13 18:13] LABS: Anion Gap 11.5; Blood Urea Nitrogen 68.0 mg/dL (7.0-18.0); Calcium 9.5 mg/dL (8.5-10.1); Carbon Dioxide 35.9 mmol/L (21.0-32.0); Chloride 88 mmol/L (98-107); Estimated GFR (African America 18 (>=60 mL/min/1.73m^2); Estimated GFR (Non-African Ame 15 (>=60 mL/min/1.73m^2); Glucose 119 mg/dL (74-106); Potassium 5.4 mmol/L (3.5-5.1); Sodium 130 mmol/L (136-145)
== END 2025-07-13 18:53 | disposition short-term general hospital (02) ==
PROVIDERS: Emergency Provider Emergency Medicine; PCP Family Medicine
DX: N17.9 Acute kidney failure, unspecified (principal); I50.9 Heart failure, unspecified; E87.5 Hyperkalemia; Z99.81 Dependence on supplemental oxygen; Z96.0 Presence of urogenital implants; Z93.6 Other artificial openings of urinary tract status; Z87.891 Personal history of nicotine dependence
CPT/HCPCS: 36415; 71045; 80048; 80053; 83880; 84132; 84484; 85025; 93005; 96365; 96375; 99285; J0613; J1817; J1938